=== PATIENT | female | born 1990 | race Native Hawaiian/Other Pacific Islander ===

== ENCOUNTER 2019-04-11 08:32 | Emergency (ER) | payer SELFPAY ==
[2019-04-11 08:45] VITALS: BP 122/80; PULSE 84; RESP 20; TEMP 36.4; O2SAT 100
--- NOTE | 2019-04-11 08:51 | ED.URI ---
HPI - URI/Sore Throat General Chief Complaint: Upper Respiratory Infection Stated Complaint: Body Aches/Diarrhea/Nausea/Congested Time Seen by Provider: 04/11/19 08:51 Source: patient and RN notes reviewed History of Present Illness HPI Narrative: Patient is a 28-year-old female presents the urgent care with complaints of nausea, body aches, loose stools, head congestion, chills, sweats. Patient states she has not taken her temperature but feels that she has been running a fever. States that she is not having constant diarrhea but is having loose stools twice a day. Denies of any vomiting or abdominal pain. States her symptoms started 3 days ago. Has been using TheraFlu without much improvement. No other acute complaints. No acute distress noted. Patient read the plan of care. Related Data Home Medications Medication Instructions Recorded Confirmed alprazolam 0.25 mg PO TID PRN 03/04/19 03/04/19 hydroxychloroquine 200 mg PO DAILY 03/04/19 03/04/19 omeprazole 20 mg PO DAILY 03/04/19 03/04/19 prednisone 10 mg PO DAILY 03/04/19 03/04/19 Allergies Allergy/AdvReac Type Severity Reaction Status Date / Time methylprednisolone Allergy Anaphylaxis Verified 04/11/19 08:56 [From [facility]] Review of Systems Review of Systems: Narrative: CONSTITUTIONAL: Reports of chills and sweats EYES: Denies visual changes, redness, or discharge. ENT: Reports of sinus congestion, rhinorrhea, postnasal drainage, bilateral otalgia. CARDIOVASCULAR: Denies chest pain, palpitations, or edema. RESPIRATORY: Denies cough or dyspnea. GASTROINTESTINAL: Reports of nausea and loose stools GENITOURINARY: Denies dysuria or hematuria. SKIN: Denies rash or itching. MUSCULOSKELETAL: Denies back pain, joint pain, or myalgia. NEUROLOGIC: Denies headache, numbness, or weakness. All other systems reviewed are negative, except as documented in HPI. [facility] Past Medical History Medical History (Updated 04/11/19 @ 09:09 by MELINDA Dunbar) Rheumatoid arthritis Comments At the time of my signature, I reviewed and agree with the nursing past medical, surgical, social, and family history. There is no relevant family history pertinent to the patient complaint. Exam Narrative: Exam Narrative: GENERAL: This is a well-nourished, well-developed patient, in no apparent distress. HEAD: normocephalic, atraumatic. Mild frontal sinus tenderness EYES: PERRL. Sclera clear/white. Vision is grossly intact. EARS: External ears normal, auditory canals clear and without drainage, fluid noted behind bilateral TMs. TMs normal without perforation. Hearing grossly intact. NOSE: External nose normal with no obvious nasal discharge, bilateral erythemic nares with clear rhinorrhea. THROAT: Mucous membranes moist, posterior pharynx clear. Mild postnasal drainage NECK: Neck supple, non-tender without lymphadenopathy, masses or thyromegaly. CARDIOVASCULAR: Regular rate and rhythm without murmurs, gallops, or rubs. RESPIRATORY: Clear to auscultation. Breath sounds equal bilaterally. No wheezes, rales, or rhonchi. SKIN: warm, intact with no suspicious lesions or rash, good texture and turgor. NEURO: awake, alert, and oriented to person, place and time. There were no obvious focal neurologic abnormalities. EXTREMITIES: No clubbing, cyanosis, or edema. Course Vital Signs Vital signs: Vital Signs Temperature 97.5 F L 04/11/19 08:45 Pulse Rate 84 04/11/19 08:45 Respiratory Rate 20 04/11/19 08:45 Blood Pressure 122/80 04/11/19 08:45 Pulse Oximetry 100 04/11/19 08:45 Temperature 97.5 F L 04/11/19 08:45 Pulse Rate 84 04/11/19 08:45 Respiratory Rate 20 04/11/19 08:45 Blood Pressure 122/80 04/11/19 08:45 Pulse Oximetry 100 04/11/19 08:45 Reviewed MDM - URI/Sore Throat MDM Narrative Medical decision making narrative: Reviewed lab results with the patient. She is aware that flu swab was negative. Advised the patient to increase fluids and
== END 2019-04-11 09:10 | disposition home or self-care (01) ==
PROVIDERS: Emergency Provider Nurse Practitioner Family
DX: B34.9 Viral infection, unspecified (principal); M32.9 Systemic lupus erythematosus, unspecified; F41.9 Anxiety disorder, unspecified
CPT/HCPCS: 87804; 99212; G0463

== ENCOUNTER 2019-08-01 08:39 | Emergency (ER) | payer SELFPAY ==
[2019-08-01 08:45] VITALS: BP 125/82; PULSE 73; RESP 16; TEMP 36.7; O2SAT 99
--- NOTE | 2019-08-01 08:54 | ED.GENADULT ---
HPI - General Adult General Stated complaint: Throat pain and sores mouth Time Seen by Provider: 08/01/19 08:54 Source: patient and RN notes reviewed Mode of arrival: ambulatory Limitations: no limitations History of Present Illness HPI narrative: This is a 29 years old female presents to the office for an evaluation of throat irritation. States, she had a little bit of soreness prior to EGD on Sunday. However her symptom is worse yesterday, described as swollen, painful, with sore noticed that she noticed inside her mouth. Denies fever, tarry stool, abdominal pain, or vomiting. Denies fever however states she reported generalized achiness feeling. She did not call the specialist office yet. She concern for strep that's why she is here. No treatment prior to arrival. Related Data Home Medications Medication Instructions Recorded Confirmed alprazolam 0.25 mg PO TID PRN 03/04/19 08/01/19 hydroxychloroquine 200 mg PO DAILY 03/04/19 08/01/19 omeprazole 20 mg PO DAILY 03/04/19 08/01/19 prednisone 10 mg PO DAILY 03/04/19 08/01/19 azathioprine 08/01/19 bupropion HCl mg PO 08/01/19 ergocalciferol (vitamin D2) 1,250 mcg PO WEEKLY 08/01/19 08/01/19 [Vitamin D2] escitalopram oxalate 10 mg PO DAILY 08/01/19 08/01/19 folic acid 08/01/19 ketorolac 10 mg PO QID PRN 08/01/19 08/01/19 meloxicam 08/01/19 trazodone 50 mg PO DAILY 08/01/19 08/01/19 valacyclovir 1,000 mg PO DAILY 08/01/19 08/01/19 Allergies Allergy/AdvReac Type Severity Reaction Status Date / Time methylprednisolone Allergy Anaphylaxis Verified 08/01/19 08:53 [From [facility]-Med[facility]] venlafaxine Allergy Rash Verified 08/01/19 08:53 Review of Systems Review of Systems: Narrative: CONSTITUTIONAL: Denies fever ENT: Denies congestion or otalgia. CARDIOVASCULAR: Denies chest pain RESPIRATORY: Denies dyspnea, cough GASTROINTESTINAL: Denies abdominal pain, nausea. Reports chronic diarrhea. GENITOURINARY: Denies urinary symptoms SKIN: Denies rash MUSCULOSKELETAL: Denies acute back pain NEUROLOGIC: Denies lightheaded PMFSH Past Medical History Medical History (Updated 08/01/19 @ 09:22 by MELINDA Lemus) Anxiety Chronic diarrhea Lupus (systemic lupus erythematosus) Rheumatoid arthritis Comments At time of signature, I agree with nursing past medical, surgical, social and family history. There is no relevant family history pertinent to the presenting complaint. Exam Narrative: Exam Narrative: GENERAL: This is a well-nourished, well-developed patient, in no apparent distress. EARS: External ears normal, auditory canals clear and without drainage, TMs normal without perforation. Hearing grossly intact. NOSE: External nose normal with no obvious nasal discharge, nares without redness, no rhinorrhea. THROAT: Mucous membranes moist without sore/lesions, posterior pharynx clear. NECK: Neck supple, non-tender without lymphadenopathy, masses or thyromegaly. CARDIOVASCULAR: Regular rate and rhythm without murmurs, gallops, or rubs. RESPIRATORY: Clear to auscultation. Breath sounds equal bilaterally. No wheezes, rales, or rhonchi. GASTROINTESTINAL: Abdomen soft, non-tender, nondistended. Bowel sounds are active. No hepato-splenomegaly, or palpable masses. No guarding. SKIN: warm, intact with no suspicious lesions or rash, good texture and turgor. NEURO: awake, alert, and oriented to person, place and time. There were no obvious focal neurologic abnormalities. Steady gait [place] Coma Scale Eye Opening: Spontaneous 4 [place] Coma Scale Motor: Obeys Commands 6 [place] Coma Scale Verbal: Oriented 5 Course Vital Signs Vital signs: Vital Signs Temperature 98.1 F 08/01/19 08:45 Pulse Rate 73 08/01/19 08:45 Respiratory Rate 16 08/01/19 08:45 Blood Pressure 125/82 08/01/19 08:45 Pulse Oximetry 99 08/01/19 08:45 Temperature 98.1 F 08/01/19 08:45 Pulse Rate 73 08/01/19 08:45 Respiratory Rate 16 08/01/19 08:45 Blood Pressure
== END 2019-08-01 09:30 | disposition home or self-care (01) ==
PROVIDERS: Emergency Provider Nurse Practitioner; PCP Internal Medicine
DX: J02.9 Acute pharyngitis, unspecified (principal)
CPT/HCPCS: 87081; 87880; 99213; G0463

== ENCOUNTER 2019-09-06 19:19 | Emergency (ER) | payer SELFPAY ==
--- NOTE | ~2019-09-06 | XR_ITS ---
XR ankle LT min 3V 09/06/2019 19:46 INDICATION: Left ankle pain PROCEDURE: 4 views left ankle COMPARISON: No prior studies FINDINGS: Fracture, dislocation or subluxation is not identified. The soft tissues appear within norm al limits. No foreign bodies are identified. IMPRESSION: 1: NO ACUTE BONE OR JOINT ABNORMALITY IDENTIFIED. Reviewed, dictated and finalized at location A.
[2019-09-06 19:28] VITALS: BP 129/59; PULSE 98; RESP 16; TEMP 36.8; O2SAT 100
--- NOTE | 2019-09-06 19:30 | ED.GENADULT ---
HPI - General Adult General Chief complaint: Extremity Injury, Lower Stated complaint: left ankle pain/rib pain Time Seen by Provider: 09/06/19 19:35 Source: patient Mode of arrival: ambulatory Limitations: no limitations History of Present Illness HPI narrative: 29-year-old female patient presents to the [facility] with complaints of left foot and ankle pain x1 week. Patient states that on 29 August she tried to do a front handsprings and came down landing on the left foot as well as the left side. Patient states she had a little bit of pain to her left rib area under the left breast but states that that pain is actually improving and feels much better. Patient states she continues to have pain to the left ankle area. Patient states she is tried ice, elevation and Tylenol and ibuprofen. 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 Denies wrapping the ankle at all. Related Data Home Medications Medication Instructions Recorded Confirmed alprazolam 0.25 mg PO TID PRN 03/04/19 08/01/19 hydroxychloroquine 200 mg PO DAILY 03/04/19 08/01/19 omeprazole 20 mg PO DAILY 03/04/19 08/01/19 prednisone 10 mg PO DAILY 03/04/19 08/01/19 ergocalciferol (vitamin D2) 1,250 mcg PO WEEKLY 08/01/19 08/01/19 [Vitamin D2] escitalopram oxalate 10 mg PO DAILY 08/01/19 08/01/19 ketorolac 10 mg PO QID PRN 08/01/19 08/01/19 trazodone 50 mg PO DAILY 08/01/19 08/01/19 albuterol sulfate INHALATION 09/06/19 amoxicillin 09/06/19 Allergies Allergy/AdvReac Type Severity Reaction Status Date / Time methylprednisolone Allergy Anaphylaxis Verified 09/06/19 19:29 [From [facility]-Medrol] venlafaxine Allergy Rash Verified 09/06/19 19:29 Review of Systems Review of Systems: Narrative: CONSTITUTIONAL: Denies fever, chills, or sweats. EYES: Denies visual changes, redness, or discharge. ENT: Denies rhinorrhea, congestion, sore throat, or otalgia. CARDIOVASCULAR: Denies chest pain, palpitations, or edema. RESPIRATORY: Denies cough or dyspnea. GASTROINTESTINAL: Denies abdominal pain, nausea, vomiting, or diarrhea. GENITOURINARY: Denies dysuria or hematuria. SKIN: Denies rash or itching. MUSCULOSKELETAL: Denies back pain, joint pain, or myalgia. Positive left ankle pain x1 week NEUROLOGIC: Denies headache, numbness, or weakness. PSYCHIATRIC: Denies anxiety or depression. [facility] Past Medical History Medical History Anxiety Chronic diarrhea Lupus (systemic lupus erythematosus) Rheumatoid arthritis Comments At the time of my signature I agree with nursing past medical history, surgical, social, and family history. There is no relevant family history pertinent to the presenting complaint. Exam Narrative: Exam Narrative: GENERAL: Well-appearing, well-nourished, and in no acute distress. HEAD: Normocephalic, atraumatic. EYES: PERRLA and EOMI. ENT: Nares clear, no rhinorrhea or epistaxis. Mucous membranes moist. NECK: Supple. No lymphadenopathy CHEST: Clear to auscultation. No respiratory distress. HEART: Regular rate and rhythm. No murmur heard. Normal peripheral pulses. ABDOMEN: Soft, nontender, nondistended, normal active bowel sounds. EXTREMITIES: Patient is able to bear weight and ambulate but has increased pain to left ankle with ambulation. The L ankle is without obvious asymmetry or deformity when compared to the R ankle. Patient can flex/extend, invert/kelly. No obvious surface trauma, ecchymosis, or soft tissue swelling. Bony tenderness to palpation over the medial malleolus. Anterior talofibular ligament, posterior talofibular ligament, calcaneofibular ligament nontender and without swelling. No tenderness or deformity of the midfoot or over the proximal fifth metatarsal. Good DP and posterior tibial pulses and sensation to light touch normal. Talar tilt test is negative for ligament laxity to valgus or vargus stress. Negative anterior draw. Peroneal nerve is int
== END 2019-09-06 19:56 | disposition home or self-care (01) ==
PROVIDERS: Emergency Provider Nurse Practitioner Family; PCP Internal Medicine
DX: S93.402A Sprain of unspecified ligament of left ankle, initial encounter (principal); W18.39XA Other fall on same level, initial encounter; F41.9 Anxiety disorder, unspecified; M32.9 Systemic lupus erythematosus, unspecified; M06.9 Rheumatoid arthritis, unspecified
CPT/HCPCS: 73610; 99213; G0463

== ENCOUNTER 2019-10-19 11:44 | Emergency (ER) | payer SELFPAY ==
--- NOTE | ~2019-10-19 | XR_ITS ---
EXAMINATION: XR chest 2V DATE: 10/19/2019 12:32 INDICATION: Bronchitis and asthma TECHNIQUE: PA and lateral views of the chest are obtained. COMPARISON: None available FINDINGS: The lungs are free of acute opacities. There is no pleural effusion or pneumothorax. The ca rdiomediastinal silhouette is normal. The visualized bones and soft tissues are unremarkable. IMPRESSION: 1. No acute cardiopulmonary abnormality. Reviewed, dictated and finalized at location A.
[2019-10-19 12:00] VITALS: BP 122/75; PULSE 92; RESP 18; TEMP 36.8; O2SAT 99
--- NOTE | 2019-10-19 12:31 | ED.GENADULT ---
HPI - General Adult General Chief complaint: Urogenital-Female Stated complaint: chest pain Time Seen by Provider: 10/19/19 12:36 Source: patient and RN notes reviewed Mode of arrival: ambulatory Limitations: no limitations History of Present Illness HPI narrative: 29-year-old female presents with urinary complaints with nausea, vomiting, and abdominal pain for the past 3 days. Dysuria consist of burning, frequency, and urgency.? Recently completed a course of Levaquin.? Denies fever or chills. No significant pelvic pain. No vaginal discharge.? No concerns for STDs. Exacerbating factors urinating.? Denies hematuria or vaginal bleeding. Denies being , LMP 1 week ago.? No flank pain. Vomit X3 without blood, last today at noon was placed on Zofran took last at 10:30 with little relief. Diarrhea water brown stool without blood, last prior to this visit. Tolerating liquids well.? Remains active. Complains of chest congestion and dry cough and body aches for the past 14 days. Carito says she was diagnosis with Bronchitis and started Levaquin and completed all. Negative COVID-19, last 3 weeks ago and currently awaiting result of one done 2 days ago to start treatment for Lupus. Constant dry cough. Rhinorrhea and nasal congestion. Denies sore throat. No high fevers, drooling, neck or throat swelling. No chest pain, wheezing, or shortness of breath. No exacerbation factors. The patient reports she have not been diagnosed with COVID-19. The patient reports she is waiting for the results of a COVID-19 lab test she had done on 10/17/19. The patient reports she do not have fever, chills, or weakness. The patient reports she do not have a new or worsening cough or shortness of breath. Denies chest pain. The patient reports she do not have any sore throat or loss of taste. Denies recent traveling. Denies concerns for COVID-19 or exposures been home with limited outdoor exposure except for essential household needs, work, and return home. At this time, patient is not suspected of having COVID-19. Some parts of this dictation were generated by voice recognition software and may contain typographical and/or grammatical inaccuracies. Related Data Home Medications Medication Instructions Recorded Confirmed alprazolam 0.25 mg PO TID PRN 03/04/19 08/01/19 hydroxychloroquine 200 mg PO DAILY 03/04/19 08/01/19 omeprazole 20 mg PO DAILY 03/04/19 08/01/19 prednisone 10 mg PO DAILY 03/04/19 08/01/19 trazodone 50 mg PO DAILY 08/01/19 08/01/19 albuterol sulfate INHALATION 09/06/19 Allergies Allergy/AdvReac Type Severity Reaction Status Date / Time methylprednisolone Allergy Anaphylaxis Verified 10/19/19 12:15 [From Solu-Medrol] venlafaxine Allergy Rash Verified 10/19/19 12:15 Review of Systems Review of Systems: Narrative: CONSTITUTIONAL: Denies fever, chills, sweats. EYES: Denies visual changes, redness, discharge. ENT: Denies sore throat, otalgia. Complains of rhinorrhea, congestion. CARDIOVASCULAR: Denies chest pain, palpitations, edema. RESPIRATORY: Denies dyspnea, wheezing. Complains of cough, chest congestion. GASTROINTESTINAL: Complains of abdominal pain, nausea, vomiting, diarrhea. GENITOURINARY: Complains of dysuria (burning, frequency, and urgency). Denies hematuria, abnormal discharge. SKIN: Denies rash or itching. MUSCULOSKELETAL: Denies acute back pain, joint pain, or myalgia. NEUROLOGIC: Denies numbness or focal weakness. PSYCHIATRIC: Denies anxiety or depression. All systems reviewed & are unremarkable except as noted in HPI and below. [facility] Past Medical History Medical History (Updated 10/20/19 @ 00:00 by Lincoln Vizcarra) Anxiety Appendicitis Asthma Bronchitis Chronic diarrhea Connective tissue disorder History of gastroesophageal reflux (GERD) Lupus (systemic lupus erythematosus) Rheumatoid arthritis Surgical History Surgical History (Updated 10/19/19 @ 13:13 by MELINDA Loza)
== END 2019-10-19 13:30 | disposition home or self-care (01) ==
PROVIDERS: Emergency Provider Nurse Practitioner Family
DX: K52.9 Noninfective gastroenteritis and colitis, unspecified (principal); R30.0 Dysuria; J06.9 Acute upper respiratory infection, unspecified; F17.210 Nicotine dependence, cigarettes, uncomplicated; J45.909 Unspecified asthma, uncomplicated; F41.9 Anxiety disorder, unspecified; M06.9 Rheumatoid arthritis, unspecified; M32.9 Systemic lupus erythematosus, unspecified; K21.9 Gastro-esophageal reflux disease without esophagitis
CPT/HCPCS: 71046; 81003; 87086; 99213; G0463

== ENCOUNTER 2020-01-12 17:08 | Emergency (ER) | payer OTHER, SELFPAY ==
--- NOTE | ~2020-01-12 | XR_ITS ---
EXAMINATION: XR chest 2V DATE: 01/12/2020 18:09 INDICATION: Lupus presenting with 2 months of bronchitis TECHNIQUE: frontal and lateral views of the chest were obtained. COMPARISON: Chest radiograph dated 10/19/2019 FINDINGS: The lungs remain clear with no focal airspace opacities, pulmonary edema, pleural effusion or pneumot horax. The cardiomediastinal silhouette is normal. Visualized bones and soft tissues are unremarkable . IMPRESSION: 1. No acute cardiopulmonary disease. Reviewed, dictated and finalized at location H. ERN STAMPER
[2020-01-12 17:22] VITALS: BP 121/81; PULSE 86; RESP 18; TEMP 36.6; O2SAT 99
--- NOTE | 2020-01-12 17:36 | ED.GENADULT ---
HPI - General Adult General Chief complaint: Upper Respiratory Infection Stated complaint: chest hurting from bronchitis Time Seen by Provider: 01/12/20 17:36 Source: patient Mode of arrival: ambulatory Limitations: no limitations History of Present Illness HPI narrative: 29-year-old female patient presents to the [facility] with complaints of cough, heartburn complaints. Patient states that in October she was diagnosed with pneumonia and was put on Levaquin at an ER. Patient states she has been tested for Covid several times and is always come up negative and her last Covid test was December 25. Patient states that she went to the ER at the end of November as well for continued symptoms of pneumonia and she was placed on an inhaler and azithromycin at that time. Patient was told that she most likely did have Covid or at least getting over most likely a Covid from a prior month. Patient states that today she is feeling much better and states that the body aches and chills are gone but continues to have a little bit of a lingering cough and states that for the past 2 days she has had what she feels like is the worst heartburn of her life to the mid chest. Patient denies any recent fevers. Patient states that she does have history of lupus and gets treated with chemo in which she is supposed to be getting her chemo infusion tomorrow and wanted to come in to make sure that she did not having any ongoing pneumonia or else she would not be able to get her chemo tomorrow. Related Data Home Medications Medication Instructions Recorded Confirmed alprazolam 0.25 mg PO TID PRN 03/04/19 08/01/19 hydroxychloroquine 200 mg PO DAILY 03/04/19 08/01/19 omeprazole 20 mg PO DAILY 03/04/19 08/01/19 prednisone 10 mg PO DAILY 03/04/19 08/01/19 trazodone 50 mg PO DAILY 08/01/19 08/01/19 albuterol sulfate INHALATION 09/06/19 Allergies Allergy/AdvReac Type Severity Reaction Status Date / Time methylprednisolone Allergy Anaphylaxis Verified 10/19/19 12:15 [From Solu-Medrol] venlafaxine Allergy Rash Verified 10/19/19 12:15 Review of Systems Review of Systems: Narrative: CONSTITUTIONAL: Denies fever, chills, or sweats. EYES: Denies visual changes, redness, or discharge. ENT: Denies rhinorrhea, congestion, sore throat, or otalgia. CARDIOVASCULAR: Positive midsternal chest pain, denies palpitations, or edema. RESPIRATORY: Positive cough, denies dyspnea. GASTROINTESTINAL: Denies abdominal pain, nausea, vomiting, or diarrhea. GENITOURINARY: Denies dysuria or hematuria. SKIN: Denies rash or itching. MUSCULOSKELETAL: Denies back pain, joint pain, or myalgia. NEUROLOGIC: Denies headache, numbness, or weakness. PSYCHIATRIC: Denies anxiety or depression. [facility] Past Medical History Medical History (Updated 01/12/20 @ 18:21 by MELINDA Strickland) Anxiety Appendicitis Asthma Bronchitis Chronic diarrhea Connective tissue disorder History of gastroesophageal reflux (GERD) Lupus (systemic lupus erythematosus) Rheumatoid arthritis Surgical History Surgical History (Updated 10/19/19 @ 13:13 by MELINDA Loza) H/O right wrist surgery Hx of appendectomy Family History Family History (Updated 10/19/19 @ 13:13 by MELINDA Loza) Father Acute myocardial infarction Mother , Mother by boyfriend No problems noted. Social History Social History (Updated 10/19/19 @ 13:14 by MELINDA Loza) Smoking packs per day: 0.25 Smoking cigarettes per day: 5.0 Years smoked: 4 Smoking pack-years: 1.00 Smoking status: Current every day smoker Tobacco type: cigarettes Alcohol intake: former Substance use: current Substance use type: marijuana Gender identity (if verbalized by the patient): Female Exam Narrative: Exam Narrative: GENERAL: Well-appearing, well-nourished, and in no acute distress. HEAD: Normocephalic, atraumatic. EYES: PERRLA and EOMI. ENT: Nares clear, no r
--- NOTE | 2020-01-12 17:40 | ECG_ITS ---
Measurements Intervals [place] Rate: 68 P: 33 [place]: 138 QRS: 24 QRSD: 83 T: 19 QT: 390 QTc: 415 Interpretive Statements SINUS RHYTHM BASELINE ARTIFACT- I, II, AVR NORMAL ECG Electronically Signed On 01-12-2020 20:27:51 [employer] by Sebastian Bocanegra D.O.
== END 2020-01-12 18:23 | disposition home or self-care (01) ==
PROVIDERS: Emergency Provider Nurse Practitioner Family; PCP Internal Medicine
DX: J06.9 Acute upper respiratory infection, unspecified (principal); J45.909 Unspecified asthma, uncomplicated; K21.9 Gastro-esophageal reflux disease without esophagitis; M32.9 Systemic lupus erythematosus, unspecified; F41.9 Anxiety disorder, unspecified; M06.9 Rheumatoid arthritis, unspecified; F17.210 Nicotine dependence, cigarettes, uncomplicated
CPT/HCPCS: 71046; 93005; 99213; G0463

== ENCOUNTER 2020-01-29 09:53 | Emergency (ER) | payer OTHER, SELFPAY ==
[2020-01-29 10:00] VITALS: BP 122/76; PULSE 89; RESP 14; TEMP 36.5; O2SAT 99
--- NOTE | 2020-01-29 10:07 | ED.GENADULT ---
HPI - General Adult General Chief complaint: Ear Stated complaint: Ear infection Time Seen by Provider: 01/29/20 10:09 Source: patient Mode of arrival: ambulatory Limitations: no limitations History of Present Illness HPI narrative: 29-year-old female patient presents to the [facility] with complaints of bilateral ear pain for the past week. Patient states she was diagnosed symptomatically with Covid couple of months ago and states that she is still crying and having some milder symptoms and is not been able to fully get over her symptoms as of yet. Patient states her oxygen saturation has been staying at 99 which she checks often and states she does have still a little bit of a mild cough that happens intermittently as well as some intermittent shortness of breath with activity. Patient states she is being followed by her primary doctor. Patient states she is currently in remission for lupus and chemo treatments. Patient states she has had decreased hearing to both ears. Patient states she did do a telehealth visit with her primary doctor yesterday and they prescribed her some steroid nasal spray but she states that that is not helping and wanted to come in to see if it was an infection. Denies any fevers, body aches or chills. Related Data Home Medications Medication Instructions Recorded Confirmed alprazolam 0.25 mg PO TID PRN 03/04/19 01/29/20 hydroxychloroquine 200 mg PO DAILY 03/04/19 01/29/20 omeprazole 20 mg PO DAILY 03/04/19 01/29/20 prednisone 10 mg PO DAILY 03/04/19 01/29/20 albuterol sulfate 90 mcg INHALATION Q6H PRN 09/06/19 01/29/20 belimumab [Benlysta] 200 mg SUBCUT WEEKLY 01/29/20 01/29/20 Allergies Allergy/AdvReac Type Severity Reaction Status Date / Time methylprednisolone Allergy Anaphylaxis Verified 01/29/20 10:09 [From Solu-Medrol] venlafaxine Allergy Rash Verified 01/29/20 10:09 Review of Systems Review of Systems: Narrative: CONSTITUTIONAL: Denies fever, chills, or sweats. EYES: Denies visual changes, redness, or discharge. ENT: Denies rhinorrhea, congestion, sore throat, positive bilateral otalgia. CARDIOVASCULAR: Denies chest pain, palpitations, or edema. RESPIRATORY: Denies cough or dyspnea. GASTROINTESTINAL: Denies abdominal pain, nausea, vomiting, or diarrhea. GENITOURINARY: Denies dysuria or hematuria. SKIN: Denies rash or itching. MUSCULOSKELETAL: Denies back pain, joint pain, or myalgia. NEUROLOGIC: Denies headache, numbness, or weakness. PSYCHIATRIC: Denies anxiety or depression. [facility] Past Medical History Medical History Anxiety Appendicitis Asthma Bronchitis Chronic diarrhea Connective tissue disorder History of gastroesophageal reflux (GERD) Lupus (systemic lupus erythematosus) Rheumatoid arthritis Surgical History Surgical History H/O right wrist surgery Hx of appendectomy Family History Family History Father Acute myocardial infarction Mother , Mother by boyfriend No problems noted. Social History Social History Smoking packs per day: 0.25 Smoking cigarettes per day: 5.0 Years smoked: 4 Smoking pack-years: 1.00 Smoking status: Current every day smoker Tobacco type: cigarettes Alcohol intake: former Substance use: current Substance use type: marijuana Gender identity (if verbalized by the patient): Female Comments At the time of my signature I agree with nursing past medical history, surgical, social, and family history. There is no relevant family history pertinent to the presenting complaint. Exam Narrative: Exam Narrative: GENERAL: Well-appearing, well-nourished, and in no acute distress. HEAD: Normocephalic, atraumatic. EYES: PERRLA and EOMI. ENT: Nares clear, no rhinorrhea or epistaxis.
== END 2020-01-29 10:20 | disposition home or self-care (01) ==
PROVIDERS: Emergency Provider Nurse Practitioner Family; PCP Internal Medicine
DX: H66.93 Otitis media, unspecified, bilateral (principal); F17.210 Nicotine dependence, cigarettes, uncomplicated; F41.9 Anxiety disorder, unspecified; J45.909 Unspecified asthma, uncomplicated; K21.9 Gastro-esophageal reflux disease without esophagitis; M32.9 Systemic lupus erythematosus, unspecified; M06.9 Rheumatoid arthritis, unspecified
CPT/HCPCS: 99213; G0463

== ENCOUNTER 2021-03-10 17:09 | Emergency (ER) | payer OTHER, SELFPAY ==
--- NOTE | ~2021-03-10 | XR_ITS ---
XR chest 2V DATE: 03/10/2021 18:10 INDICATION: Cough, shortness of breath, chest tightness. Covid-positive 6 days ago. TECHNIQUE: PA and lateral views COMPARISON: 01/11/2022 view chest FINDINGS: Normal heart size. No hilar or mediastinal enlargement. No pulmonary infiltrate or consolid ation, pleural effusion or pulmonary vascular congestion or pneumothorax. Included skeletal structure s are unremarkable. IMPRESSION: Negative Reviewed, dictated and finalized at location J. [facility]LOGIST IMPRESSION: Negative
[2021-03-10 17:15] VITALS: BP 122/82; PULSE 64; RESP 18; TEMP 36.7; O2SAT 99
--- NOTE | 2021-03-10 18:01 | ED.URI ---
HPI - URI/Sore Throat General Chief Complaint: Upper Respiratory Infection Stated Complaint: Chest discomfort Source: patient Mode of arrival: ambulatory Limitations: no limitations History of Present Illness HPI Narrative: 30-year-old female presents to [facility] with complaints of continued cough, chest congestion, chest tightness and shortness of breath for the last 6 days. Patient was diagnosed with COVID 6 days ago. Patient did have an antiviral infusion completed 3 days ago. Patient reports that she feels like her symptoms have worsened since then. Patient was evaluated [facility] emergency room yesterday had a normal chest x-ray completed and was given a shot of dexamethasone and was told to start Zithromax tomorrow. Patient reports that she does take prednisone daily due to history of lupus. Patient is COVID vaccinated. Patient denies fever, bodies, chills, nausea, vomiting or diarrhea. Patient reports that she has been monitoring her pulse ox levels at home and they have been running 98 to 99%. Patient is a non-smoker. Patient denies recent travel. Patient reports that she has been in contact with her campaign specialist and the facility that completed antiviral infusion. MD elicited complaint: cough and other (chest tightness) Onset (ago): day(s) (6) Able to tolerate fluids by mouth: Yes Related Data Home Medications Medication Instructions Recorded Confirmed hydroxychloroquine 200 mg PO DAILY 03/04/19 01/29/20 omeprazole 20 mg PO DAILY 03/04/19 01/29/20 belimumab [Benlysta] 200 mg SUBCUT WEEKLY 01/29/20 01/29/20 dexamethasone 03/10/21 ondansetron HCl 03/10/21 valacyclovir 03/10/21 Allergies Allergy/AdvReac Type Severity Reaction Status Date / Time methylprednisolone Allergy Anaphylaxis Verified 01/29/20 10:09 [From Solu-Medrol] Penicillins Allergy Rash Verified 03/10/21 17:39 venlafaxine Allergy Rash Verified 01/29/20 10:09 Review of Systems Constitutional: Constitutional: Denies chills, Reports fatigue, Denies fever(s) and Denies weakness ENT: Denies dysphagia, Denies dizziness, Denies epistaxis and Denies sore throat Cardiovascular: Cardiovascular: Denies chest pain Respiratory: Respiratory: Reports chest congestion and Reports cough Gastrointestinal: Gastrointestinal: Denies abdominal pain, Denies diarrhea, Denies nausea and Denies vomiting Integumentary/Breasts: Skin/Breast: Denies rash PMFSH Past Medical History Medical History Anxiety Appendicitis Asthma Bronchitis Chronic diarrhea Connective tissue disorder History of gastroesophageal reflux (GERD) Lupus (systemic lupus erythematosus) Rheumatoid arthritis Surgical History Surgical History H/O right wrist surgery Hx of appendectomy Family History Family History Father Acute myocardial infarction Mother , Mother by boyfriend No problems noted. Social History Social History Smoking packs per day: 0.25 Smoking cigarettes per day: 5.0 Years smoked: 4 Smoking pack-years: 1.00 Smoking status: Current every day smoker Tobacco type: cigarettes Alcohol intake: former Substance use: current Substance use type: marijuana Gender identity (if verbalized by the patient): Female Sexual Orientation (if Verbalized by the Patient): Straight or Heterosexual Comments At time of signature, I agree with nursing past medical, surgical, social and family history. There is no relevant family history pertinent to the presenting complaint. Exam Const: General: healthy appearing and no acute distress Orientation/consciousness: patient oriented x3 HENMT: Head: normal to inspection Mouth: Yes moist mucous membranes Teeth and gingiva: dentition normal Throat: uvula mi
== END 2021-03-10 18:45 | disposition home or self-care (01) ==
PROVIDERS: Emergency Provider Nurse Practitioner Family; PCP Internal Medicine
DX: U07.1 COVID-19 (principal); J45.909 Unspecified asthma, uncomplicated; K21.9 Gastro-esophageal reflux disease without esophagitis; M32.9 Systemic lupus erythematosus, unspecified; M06.9 Rheumatoid arthritis, unspecified; F17.210 Nicotine dependence, cigarettes, uncomplicated
CPT/HCPCS: 71046; 99213; G0463

== ENCOUNTER 2023-08-04 16:02 | Emergency (ER) | payer OTHER, SELFPAY ==
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
[2023-08-04 16:17] VITALS: BP 113/76; PULSE 72; RESP 16; TEMP 37; O2SAT 100
== END 2023-08-04 17:03 | disposition home or self-care (01) ==
PROVIDERS: Emergency Provider Nurse Practitioner Family; PCP Internal Medicine
DX: S13.4XXA Sprain of ligaments of cervical spine, initial encounter (principal); S16.1XXA Strain of muscle, fascia and tendon at neck level, initial encounter; V89.2XXA Person injured in unspecified motor-vehicle accident, traffic, initial encounter; M32.9 Systemic lupus erythematosus, unspecified; M06.9 Rheumatoid arthritis, unspecified; F17.210 Nicotine dependence, cigarettes, uncomplicated; J45.909 Unspecified asthma, uncomplicated; K21.9 Gastro-esophageal reflux disease without esophagitis
CPT/HCPCS: 99213; G0463

== ENCOUNTER 2023-11-04 08:57 | Emergency (ER) | payer SELFPAY ==
[2023-11-04 09:08] VITALS: BP 115/70; PULSE 71; RESP 16; TEMP 36.3; O2SAT 100
--- NOTE | 2023-11-04 09:15 | ED.URI ---
HPI - URI/Sore Throat General Chief Complaint: Upper Respiratory Infection Stated Complaint: poss sinus infection Time Seen by Provider: 11/04/23 09:15 Source: patient, RN notes reviewed and old records reviewed Mode of arrival: ambulatory Limitations: no limitations History of Present Illness HPI Narrative: 33-year-old female who presents to [facility] and 1 and 1/2 weeks duration of sinus congestion, facial pressure, sinus drainage, pressure to her ears. Patient reports she has done COVID testing at home which has been negative. Patient reports she has been taking Sudafed, DayQuil, NyQuil, ibuprofen, nasal saline and Flonase for her symptoms without resolution. Patient reports that she has had history of sinus problems since moving to [facility]. MD elicited complaint: rhinorrhea, nasal congestion, sinus pain and other (Ear pressure, facial pressure) Pertinent past history: pneumonia, asthma, seasonal allergies and other (Bronchitis) Onset (ago): week(s) (1.5) Consistency: constant Severity: moderate Pain scale (0-10): 4 Able to tolerate fluids by mouth: Yes Treatments prior to arrival: acetaminophen, ibuprofen and other (Nasal saline, Flonase and Sudafed) Related Data Home Medications Medication Instructions Recorded Confirmed hydroxychloroquine 200 mg tablet 200 mg PO DAILY 03/04/19 01/29/20 omeprazole 20 mg tablet,delayed 20 mg PO DAILY 03/04/19 01/29/20 release prednisone 5 mg tablet mg 08/04/23 sertraline 25 mg tablet mg 08/04/23 Allergies Allergy/AdvReac Type Severity Reaction Status Date / Time methylprednisolone Allergy Anaphylaxis Verified 08/04/23 16:05 [From Solu-Medrol] Penicillins Allergy Rash Verified 08/04/23 16:05 venlafaxine Allergy Rash Verified 08/04/23 16:05 Review of Systems Review of Systems: CONSTITUTIONAL: Reports malaise, chills, sweats, or fever. EYES: Denies visual changes, redness, or discharge. ENT: Reports rhinorrhea, congestion, sinus pain, otalgia and sore throat. CARDIOVASCULAR: Denies chest pain, palpitations, or edema. RESPIRATORY: Reports no cough.? Denies dyspnea. GASTROINTESTINAL: Denies abdominal pain, nausea, vomiting, diarrhea SKIN: Denies rash or itching. MUSCULOSKELETAL: Denies myalgia. NEUROLOGIC: Reports intermittent headache. All systems reviewed & are unremarkable except as noted in HPI and below PMFSH Past Medical History Medical History Anxiety Appendicitis Asthma Bronchitis Chronic diarrhea Connective tissue disorder History of gastroesophageal reflux (GERD) Lupus (systemic lupus erythematosus) Rheumatoid arthritis Surgical History Surgical History H/O right wrist surgery Hx of appendectomy Status post breast reduction Family History Family History Father Acute myocardial infarction Mother , Mother by boyfriend No problems noted. Social History Social History Smoking packs per day: 0.25 Smoking cigarettes per day: 5.0 Years smoked: 4 Smoking pack-years: 1.00 Smoking status: Current every day smoker Tobacco type: cigarettes Alcohol intake: former Substance use: current Substance use type: marijuana Living arrangements: with family Occupation/Education: occupation Gender identity (if verbalized by the patient): Female Sexual Orientation (if Verbalized by the Patient): Straight or Heterosexual Comments At time of signature, agree with nursing past medical, surgical, social and family history. There is no relevant family history pertinent to the presenting complaint Exam Narrative: GENERAL: Well-appearing, well-nourished, and in no acute distress. HEAD: Normocephalic EYES: PERRLA, conjunctivae clear ENT: Nares clear, turbinates edematous a
--- NOTE | 2023-11-09 19:12 | PC.NURSE ---
called and requested diflucan, said has developed vag. itch with white thick discharge, said forgot to request diflucan with azithromycin. said always gets yeast infection with azithromycin. 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
== END 2023-11-04 09:42 | disposition home or self-care (01) ==
PROVIDERS: Emergency Provider Registered Nurse; PCP Internal Medicine
DX: J01.40 Acute pansinusitis, unspecified (principal); F17.210 Nicotine dependence, cigarettes, uncomplicated; J45.909 Unspecified asthma, uncomplicated; M32.9 Systemic lupus erythematosus, unspecified; M06.9 Rheumatoid arthritis, unspecified; K21.9 Gastro-esophageal reflux disease without esophagitis
CPT/HCPCS: 99213; G0463

== ENCOUNTER 2024-01-04 17:46 | Emergency (ER) | payer SELFPAY ==
[2024-01-04 17:53] VITALS: BP 111/74; PULSE 79; RESP 18; TEMP 36.6; O2SAT 100
[2024-01-04 18:55] LABS: EDCOVIDSCREEN Negative (Negative); EDINFLUASCREEN Negative (Negative); EDINFLUBSCREEN Negative (Negative); EDSTREPNEGPOS1 Negative (Negative)
--- NOTE | 2024-01-04 20:44 | ED_ITS ---
HPI - URI/Sore Throat General Chief Complaint: Upper Respiratory Infection Stated Complaint: chest heaviness,weak,hard to get deep breath Time Seen by Provider: 01/04/24 17:55 Source: patient, RN notes reviewed and old records reviewed Mode of arrival: ambulatory Limitations: no limitations History of Present Illness HPI Narrative: 33-year-old female to [facility] for complaint of bilateral ear pain, fatigue, diarrhea, cough , chest heaviness for 4 days. 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 Patient states that her daughter has recently been treated for pneumonia. Patient able to tolerate fluids by mouth. Patient resting comfortably in exam room in no acute distress. Respirations even and nonlabored. Patient able to speak in complete sentences without difficulty. Related Data Home Medications Medication Instructions Recorded Confirmed hydroxychloroquine 200 mg tablet 200 mg PO DAILY 03/04/19 01/29/20 omeprazole 20 mg tablet,delayed 20 mg PO DAILY 03/04/19 01/29/20 release prednisone 5 mg tablet mg 08/04/23 sertraline 25 mg tablet mg 08/04/23 acyclovir 5 % topical ointment topical 01/04/24 Allergies Allergy/AdvReac Type Severity Reaction Status Date / Time methylprednisolone Allergy Anaphylaxis Verified 01/04/24 17:52 [From Solu-Medrol] Penicillins Allergy Rash Verified 01/04/24 17:52 venlafaxine Allergy Rash Verified 01/04/24 17:52 Review of Systems Review of Systems: All systems reviewed & are unremarkable except as noted in HPI and below Constitutional: Constitutional: Reports as per HPI and Reports fatigue Eyes: Eyes: Reports no additional eye complaints ENT: Reports as per HPI and Reports otalgia Cardiovascular: Cardiovascular: Reports no additional cardiovascular complaints, Denies chest pain and Denies dyspnea Respiratory: Respiratory: Reports no additional respiratory complaints, Reports cough and Denies dyspnea Comments: patient states feels difficult to take a deep breath Gastrointestinal: Gastrointestinal: Reports as per HPI and Reports diarrhea Musculoskeletal: Musculoskeletal: Reports no additional musculoskeletal complaints Neurologic: Reports system reviewed and no additional complaints, except as documented Psychiatric: Psychiatric: Reports no additional psychiatric complaints [facility] Past Medical History Medical History Anxiety Appendicitis Asthma Bronchitis Chronic diarrhea Connective tissue disorder History of gastroesophageal reflux (GERD) Lupus (systemic lupus erythematosus) Rheumatoid arthritis Surgical History Surgical History H/O right wrist surgery Hx of appendectomy Status post breast reduction Family History Family History Father Acute myocardial infarction Mother , Mother by boyfriend No problems noted. Social History Social History Smoking packs per day: 0.25 Smoking cigarettes per day: 5.0 Years smoked: 4 Smoking pack-years: 1.00 Smoking status: Current every day smoker Tobacco type: cigarettes Alcohol intake: former Substance use: current Substance use type: marijuana Living arrangements: with family Occupation/Education: occupation Gender identity (if verbalized by the patient): Female Sexual Orientation (if Verbalized by the Patient): Straight or Heterosexual Comments At the time of my signature, I reviewed and agree with the nursing past medical, surgical, social, and family history. There is no relevant family history pertinent to the patient complaint. Exam Const: General: cooperative, healthy appearing, comfortable, no acute distress, well developed, alert, well groomed and well nourished Nutritional Appearance: well nourished Orientation/consciousness: patient oriented x3 Limitations: no limitations HENMT: Head: normal to inspection Ears: external ears normal Face/Nose/Sinus: Normal external nose present, Normal nares present, normal facial exam, No erythema and No edema Face and sinus: normal facial exam, no erythema and no edema Mouth: Yes Normal oral and palatal mucosa present Eyes: General: appearance normal, both eyes and all related structures Neck: Neck: normal visual inspection, full ROM and no meningeal signs Lymphatic: no lymphadenopathy noted and no lymphedema noted Chest: Chest palpation & inspection: normal inspection of the chest Resp: Effort & Inspection: normal respiratory effort and able to speak in complete sentences Auscultation: crackles and diminished lung sounds bilateral Cardio: Jugular venous distension: no JVD Rate: regular rate Rhythm: regular rhythm Back/Spine/Pelvis: Cervical Spine: cervical ROM normal Skin: General skin exam: normal color, no rashes or lesions noted and turgor normal Neuro: General: patient oriented x3, gait normal, moves all extremities and no meningeal signs Speech: normal speech Gait exam (Neuro): Normal gait present Extrem: General: normal to inspection, full ROM and capillary refill normal Psych: Appearance: grossly normal and well kempt Course Course Emergency Course: Some parts of this dictation were generated by voice recognition software and may contain typographical and/or grammatical inaccuracies. Level of Care: Express [facility] Visit Vital Signs Vital signs: Vital Signs Temperature 36.6 C 01/04/24 17:53 Pulse Rate 79 01/04/24 17:53 Respiratory Rate 18 01/04/24 17:53 Blood Pressure 111/74 01/04/24 17:53 Pulse Oximetry 100 01/04/24 17:53 Oxygen Delivery Room Air 01/04/24 17:53 Temperature 36.6 C 01/04/24 17:53 Pulse Rate 79 01/04/24 17:53 Respiratory Rate 18 01/04/24 17:53 Blood Pressure 111/74 01/04/24 17:53 Pulse Oximetry 100 01/04/24 17:53 Oxygen Delivery Room Air 01/04/24 17:53 reviewed MDM - URI/Sore Throat MDM Narrative Medical decision making narrative: 33-year-old female to [facility] for complaint of bilateral ear pain, fatigue, diarrhea, cough for 4 days. 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 Patient states that her daughter has recently been treated for pneumonia. Patient able to tolerate fluids by mouth. Patient resting comfortably in exam room in no acute distress. Respirations even and nonlabored. Patient able to speak in complete sentences without difficulty. on exam, bilateral lung bases diminished with diffuse crackles. Exam otherwise unremarkable. Patient negative for COVID, influenza, strep in clinic. Strep culture sent. Patient is sitting comfortably in exam room nontoxic in appearance. Patient appropriate for outpatient treatment and follow-up. Discharge instructions reviewed with patient, as well as provided in writing per nursing staff. The instructions also include specific and strict return/GO TO THE ER as well as f/u information. All questions have been answered, and the patient deny any further questions with discharge and discharge plan. Some parts of this dictation were generated by voice recognition software and may contain typographical and/or grammatical inaccuracies. Differential Diagnosis Differential diagnosis: Likely upper respiratory infection, croup, otitis media, sinusitis, viral infection, bronchitis, influenza and pharyngitis Lab Data Labs: Lab Results 01/04/24 Range/Units 18:53 POC Influenza A Ag Negative (Negative) POC Influenza B Ag Negative (Negative) POC SARS CoV-2 Ag Negative (Negative) POC Grp A Strep Screen Negative (Negative) Discharge Plan Discharge Clinical Impression: Pneumonia exposure Patient Disposition: Home, Self-Care Condition: Stable Prescriptions: New fluconazole [Diflucan] 100 mg tablet 100 mg PO DAILY Qty: 1 0RF doxycycline monohydrate 100 mg tablet 100 mg PO BID 10 Days Qty: 20 0RF albuterol sulfate 90 mcg/actuation HFA aerosol inhaler 1 inh inhalation QID PRN (Reason: shortness of breath or wheezing) Qty: 8.5 0RF No Action acyclovir 5 % ointment TOPICAL omeprazole 20 mg Tablet,Delayed Release (Dr/Ec) 20 mg PO DAILY hydroxychloroquine 200 mg Tablet 200 mg PO DAILY prednisone 5 mg tablet sertraline 25 mg tablet Follow-up/Referrals: Yaa,Brian Tatum MD [Primary Care Provider] -
== END 2024-01-04 19:03 | disposition home or self-care (01) ==
PROVIDERS: Emergency Provider Nurse Practitioner Family; PCP Internal Medicine
DX: Z20.89 Contact with and (suspected) exposure to other communicable diseases (principal); Z20.822 Contact with and (suspected) exposure to COVID-19; F17.210 Nicotine dependence, cigarettes, uncomplicated; J45.909 Unspecified asthma, uncomplicated; M32.9 Systemic lupus erythematosus, unspecified; E27.1 Primary adrenocortical insufficiency; K21.9 Gastro-esophageal reflux disease without esophagitis; M06.9 Rheumatoid arthritis, unspecified
CPT/HCPCS: 87081; 87426; 87804; 87880; 99213; G0463

== ENCOUNTER 2024-02-17 13:38 | Emergency (ER) | payer SELFPAY ==
--- NOTE | 2024-02-17 13:55 | ED.URI ---
HPI - URI/Sore Throat General Chief Complaint: Upper Respiratory Infection Stated Complaint: Sinus Pressure/Body Aches/Runny Nose History of Present Illness HPI Narrative: Patient presents with a 5 day history of nasal congestion cough no fever no body aches. Patient states she was treated urgent care 6 days ago with negative swabs for influenza and COVID and given a Z-Maximilian. Patient presents with continued nasal congestion and cough. No shortness of breath no chest pain no fever no body aches. Related Data Home Medications ?Medication ?Instructions ?Recorded ?Confirmed ?Last Taken ?Type hydroxychloroquine 200 mg tablet 200 mg PO DAILY 03/04/19 02/17/24 Unknown History omeprazole 20 mg tablet,delayed 20 mg PO DAILY 03/04/19 02/17/24 Unknown History release prednisone 5 mg tablet mg 08/04/23 Unknown History sertraline 25 mg tablet mg 08/04/23 Unknown History acyclovir 5 % topical ointment topical 01/04/24 Unknown History Flonase 02/17/24 Unknown History azithromycin 250 mg tablet mg 02/17/24 Unknown History cetirizine .ROUTE 02/17/24 Unknown History Allergies Allergy/AdvReac Type Severity Reaction Status Date / Time methylprednisolone (From Allergy Anaphylaxis Verified 02/17/24 13:54 Solu-Medrol) Penicillins Allergy Rash Verified 02/17/24 13:54 venlafaxine Allergy Rash Verified 02/17/24 13:54 Review of Systems Review of Systems: CONSTITUTIONAL: Denies chills, or sweats. Reports fever and generalized body aches EYES: Denies visual changes, redness, or discharge. ENT: Denies otalgia. Reports nasal congestion runny nose and sore throat CARDIOVASCULAR: Denies chest pain, palpitations, or edema. RESPIRATORY: Denies dyspnea. Reports occasional cough GASTROINTESTINAL: Denies abdominal pain, nausea, vomiting, or diarrhea. GENITOURINARY: Denies dysuria or hematuria. SKIN: Denies rash or itching. MUSCULOSKELETAL: Denies back pain, joint pain, or myalgia. Reports generalized body aches NEUROLOGIC: Denies headache, numbness, or weakness. PSYCHIATRIC: Denies anxiety or depression. [facility] Past Medical History Medical History Anxiety Appendicitis Asthma Bronchitis Chronic diarrhea Connective tissue disorder History of gastroesophageal reflux (GERD) Lupus (systemic lupus erythematosus) Rheumatoid arthritis Surgical History Surgical History H/O right wrist surgery Hx of appendectomy Status post breast reduction Family History Family History Father Acute myocardial infarction Mother , Mother by boyfriend No problems noted. Social History Social History Smoking packs per day: 0.25 Smoking cigarettes per day: 5.0 Years smoked: 4 Smoking pack-years: 1.00 Smoking status: Current every day smoker Tobacco type: cigarettes Alcohol intake: former Substance use: current Substance use type: marijuana Living arrangements: with family Occupation/Education: occupation Gender identity (if verbalized by the patient): Female Sexual Orientation (if Verbalized by the Patient): Straight or Heterosexual Comments At time of signature, agree with nursing past medical, surgical, social and family history. There is no relevant family history pertinent to the presenting complaint Exam Narrative: The patient is a well-developed, well-nourished in no acute distress. SKIN: Skin is warm and dry without erythema, swelling or exudate. There is good turgor. No tenting. HEAD: Atraumatic. Normocephalic. No temporal or scalp tenderness. EYES: Moist and bright. Sclera and conjunctivae normal. No discharge. PERRLA. Extraocular motions intact. Gross visual acuity intact. EARS: Pinna is normal shape and contour. Clear external auditory canals. TM pearly ramirez with good cone of light, no erythema or suppuration. Bilateral cerumen noted no gross hearing deficit. NOSE: pink, moist mucosa with good air movement. Clear rhinorrhea without nasal flaring. Septum midline. Mouth: moist mucous membranes. THROAT; mild erythema noted to posterior oropharynx with moderate postnasal drainage. Without exudate or ulceration.. Uvula midline. Normal movement of soft palate. NECK: Supple and nontender with full range of motion without discomfort. No meningeal signs. LUNGS: Equal and bilateral breath sounds without wheezes, rales or rhonchi. CHEST: The chest wall is without retractions or use of accessory muscles. HEART: Has a regular rate and rhythm without murmur, gallops, click or rub. ABDOMEN: Soft, nontender with positive active bowel sounds. No rebound tenderness. EXTREMITIES: Without cyanosis, clubbing or edema. Equal 2+ distal pulses and 2 second capillary refill noted. NEUROLOGIC: alert, active, . The patient moves all extremities with normal muscle strength. Normal muscle tone is noted. Normal coordination is noted. NO focal neurological findings noted. Course Course Level of Care: Express Care Visit Discharge Plan Discharge Clinical Impression: Upper respiratory infection Patient Disposition: Home, Self-Care Condition: Stable Instructions: Antibiotic Form Additional Instructions: *Throw away your current toothbrush and begin using a new toothbrush in 48 hours in order to prevent re-infection. If anyone else's toothbrush is stored near yours, they should also throw away their current toothbrush and begin using a new one. *Sanitize all reusable water bottles. *Do not share items with others. *Wash your hands often. Supportive care/Soothing measures/Pain relief: *Avoid cigarette smoke (including secondhand smoke) *Avoid acidic foods and beverages *Eat a soft diet for the next 3-4 days *Salt water gargles may alleviate some of the throat discomfort. Most recipes call for ? to ? teaspoon of salt per 8 ounces (approximately 240 mL) of warm water. *You can take tylenol or ibuprofen per the package instructions for pain/fever. *Sipping cold or warm beverages (eg, tea with honey or lemon) *Eat cold or frozen desserts (eg, ice cream, popsicles) *Sucking on ice *Sucking on hard candy Viruses are everywhere and can spread like wildfire. Sx can last up to 3-4 weeks. Treatment is aimed toward your specific symptoms. You must treat your symptoms in order to feel better while the virus runs it's course. Increase fluids especially water. Do not share items with others. You can take Tylenol or ibuprofen per the package instructions for pain/fever. Wash your hands as often as possible. Purchase and begin using an over the counter antihistamine/decongestant combo such as Zyrtec D, Chica D, Claritin D as well as Flonase nasal spray per the package instructions. Salt water gargles may alleviate some of your throat discomfort. Go to the ER if your symptoms become worse of if ANY new symptoms develop Patient Language: Belarusian Prescriptions: New dexamethasone 4 mg tablet 10 mg PO ONCE Qty: 2 0RF No Action acyclovir 5 % ointment TOPICAL fluconazole [Diflucan] 100 mg tablet 100 mg PO DAILY Qty: 1 0RF doxycycline monohydrate 100 mg tablet 100 mg PO BID 10 Days Qty: 20 0RF albuterol sulfate 90 mcg/actuation HFA aerosol inhaler 1 inh inhalation QID PRN (Reason: shortness of breath or wheezing) Qty: 8.5 0RF azithromycin 250 mg tablet cetirizine [Zyrtec] .ROUTE Flonase omeprazole 20 mg Tablet,Delayed Release (Dr/Ec) 20 mg PO DAILY hydroxychloroquine 200 mg Tablet 200 mg PO DAILY prednisone 5 mg tablet sertraline 25 mg tablet Follow-up/Referrals: Yaa,Brian Tatum MD [Primary Care Provider] -
[2024-02-17 13:57] VITALS: BP 123/69; PULSE 81; RESP 16; TEMP 36.5; O2SAT 100
--- NOTE | 2024-02-17 14:29 | PC.NURSE ---
1414 upon dc stated wants tested for flu and covid. aware of additional cost. said wants documentation if + or -. said was told to have test redone today by provider from previous urgent care visit 3 days ago.
[2024-02-17 14:53] LABS: EDCOVIDSCREEN Negative (Negative); EDINFLUASCREEN Negative (Negative); EDINFLUBSCREEN Negative (Negative)
--- OUTSIDE RECORDS SUMMARY | 2024-02-24 19:38 | XMS_ITS | Encounter Summary ---
Author Organization [facility] Address [address] [place] [address] Care Team Providers Care Slp Name Role Phone Sheldon Delgado MD Unavailable [phone] Huseyin Dangelo MD Primary Care Provider [phone] Encounter Details Date Type Department Care Team (Latest Contact Info) Description 05/31/2020 Travel Social History Tobacco Use Types Packs/Day Years Used Date Smoking Tobacco: Former Cigarettes Smokeless Tobacco: Never Alcohol Use Standard Drinks/Week Comments No 0 (1 standard drink = 0.6 oz pur e alcohol) Overall Financial Resource Strain (CARDIA) Answe r Date Recorded Difficulty of Paying Living Expenses Not hard at all 01/29/2019 Hunger Vital Sign Answer Date Recorded Worried About Running Out of Food in the Last Ye ar Never true 01/29/2019 Ran Out of Food in the Last Year Not on file 01/29/2019 PRAPARE - Transportation Answer Date Re corded Lack of Transportation (Medical) No 01/29/2019 Lack of Transportation (Non-Medical) No 01/29/2019 Sex and Gender Information Value Date Recorded Sex Assigned at Not on file Gender Identity Not on file Sexual Orientation Not on file COVID-19 Exposure Response Date Recorded In the last month, have you been in contact with someone who was confirmed or suspected to have Coronavirus / COVID-19? No / Unsure 05/31/2020 8:19 AM CDT documented as of this encounter Plan of Treatment Not on file documented as of this encounter Visit Diagnoses Not on filedocumented in this encounter Care Teams Slp Relationship Specialty Start Date End Date Huseyin Dangelo MD PCP - General 07/29/19 06/15/20 Sheldon Delgado MD Obstetrics and Gynecology 05/23/19 documented as of this encounter
--- OUTSIDE RECORDS SUMMARY | 2024-02-24 19:38 | XMS_ITS | Encounter Summary ---
Author Organization [facility] Address [address] [place] [address] Care Team Providers Care Wire Wrapping Machine Operator Name Role Phone Sheldon Delgado MD Unavailable [phone] Huseyin Dangelo MD Primary Care Provider [phone] Brian Mon MD Primary Care Provider [phone] Huseyin Dangelo MD Primary Care Provider [phone] Encounter Details Date Type Department Care Team (Late st Contact Info) Description 09/05/2019 Lab Requisition [facility] [address] [place] [address] Alton Valerio MD Social History Tobacco Use Types Packs/Day Years [...] on file Sexual Orientation Not on file documented as of this encounter Plan of Treatment Not on file documented as of this encounter Procedures Procedure Name Priority Date/Time Associated Diagnosis Comments SARS-COV-2 (COVID-19) IN HOUSE Routine 09/04/2019 1:00 PM CDT documented in this encounter Results * SARS-COV-2 (COVID-19) IN HOUSE (09/04/2019 1:00 PM CDT) COVID-19 PCR Not detected Not detected, Invalid 09/05/2019 7:50 PM CDT [facility] Microbiology SPECIMEN FROM NASOPHARYNGEAL STRUCTURE / Unknown Collection / Unknown 09/04/2019 1:00 PM CDT 09/05/2019 1:17 PM CDT Narrative [facility] - 09/05/2019 7:50 PM CDT This nucleic acid amplification assay performance was validated by [facility]. This test has been authorized by the Food and Drug administration (FDA)under an Emergency??Use Authorization (EUA). This test has been validated in accordance with the FDA's guidance document Policy for Diagnostic Testing in Laboratories Certified to perform High Complexity Testing under CLIA prior to Emergency Use Authorization for Coronavirus Disease-2019 during the Public Health Emergency issued on April 26, 2019. FDA independent review of this validation is pending. This test is only authorized for the duration of time the declaration that circumstances exist justifying the authorization of emergency use of in vitro diagnostic tests for detection of SARS-CoV-2 virus and/or diagnosis of COVID-19 infection under section 564(b)(1) of the Act, 21 U.S.C 360bbb-3 (b)(1), unless the authorization is terminated or revoked sooner. Alton Valerio MD LAB - MICROBIOLOGY ORDERABLES [facility] [address] [place] [address], [facility] [phone] documented in this encounter Visit Diagnoses Not on filedocumented in this encounter Additional Health Concerns Infection Onset Date Last Indicated Resolved Time COVID-19 Under Investigation 09/05/2019 09/04/2019 09/05/2019 7:50 PM CDT documented as of this encounter Care Teams Wire Wrapping Machine Operator Relationship Specialty Start Date End Date Huseyin Dangelo MD PCP - General 07/29/19 06/15/20 Brian Mon MD PCP - General Internal Medicine 06/16/20 12/19/20 [place] [id number] [id number] PCP - General 12/20/20 05/03/23 Sheldon Delgado MD Obstetrics and Gynecology 05/23/19 documented as of this encounter
--- OUTSIDE RECORDS SUMMARY | 2024-02-24 19:38 | XMS_ITS | Encounter Summary ---
Author Organization [facility] Address [address] [place] [address] Care Team Providers Care Cable Tv Installer Name Role Phone Sheldon Delgado MD Unavailable [phone] Huseyin Dangelo MD Primary Care Provider [phone] Brian Mon MD Primary Care Provider [phone] Huseyin Dangelo MD Primary Care Provider [phone] Encounter Details Date Type Department Care Team (Late st Contact Info) Description 09/03/2019 Lab Requisition [facility] [address] [place] [address] Quiqeu Cotton MD [address] [facility] [address] [place] [id number] Social History Tobacco Use Types Packs/Day Years Used Date Smoking Tobacco: Never Assessed Overall Financial Resource Strain (CARDIA) Answe r [...] Diagnosis Comments SARS-COV-2 (COVID-19) IN HOUSE Routine 09/03/2019 3:20 PM CDT documented in this encounter Results * SARS-COV-2 (COVID-19) IN HOUSE (09/03/2019 3:20 PM CDT) COVID-19 PCR Not detected Not detected, Invalid 09/04/2019 9:16 PM CDT [facility] Microbiology SPECIMEN FROM NASOPHARYNGEAL STRUCTURE / Unknown Collection / Unknown 09/03/2019 3:20 PM CDT 09/03/2019 7:22 PM CDT Narrative [facility] - 09/04/2019 9:16 PM CDT This Real Time RT-PCR assay was developed and its performance characteristics determined by [facility]. This test has been authorized by the Food and Drug administration (FDA)under an Emergency Use Authorization (EUA). This test has been validated [...] the authorization is terminated or revoked sooner. Quique Cotton MD LAB - MICROBIOLOGY O RDERABLES [facility] [address] [place] [address], [facility] [phone] documented in this encounter Visit Diagnoses Not on filedocumented in this encounter Additional Health Concerns Infection Onset Date Last Indicated Resolved Time COVID-19 Under Investigation 09/03/2019 09/03/2019 09/04/2019 9:16 PM CDT COVID-19 Under Investigation 09/05/2019 09/04/2019 09/05/2019 7:50 PM CDT documented as of this encounter Care Teams Cable Tv Installer Relationship Specialty Start Date End Date Huseyin Dangelo MD PCP - General 07/29/19 06/15/20 Brian Mon MD PCP - General Internal Medicine 06/16/20 12/19/20 [place] [id number] [facility] [address], [place] [id number] PCP - General 12/20/20 05/03/23 Sheldon Delgado MD Obstetrics and Gynecology 05/23/19 documented as of this encounter
--- OUTSIDE RECORDS SUMMARY | 2024-02-24 19:38 | XMS_ITS | Encounter Summary ---
Author Organization [facility] Address [address] [facility] [address] [facility] [place] [address] Care Team Providers Care Substitute Crossing Guard Name Role Phone Sheldon Delgado MD Unavailable [phone] Huseyin Dangelo MD Primary Care Provider [phone] Reason for Visit * Reason Onset Date Comments Appointment 09/21/2022 Encounter Details Date Type Department Care Team (Late st Contact Info) Description 09/21/2022 Telephone [facility] - Hematology/Oncology [address] [place] [address] Rita Dkue, RN Appointment Social History Tobacco Use Types Packs/Day Years [...] 01/29/2019 Lack of Transportation (Non-Medical) No 01/29/2019 Comments Yes Sex and Gender Information Value Date Recorded Sex Assigned at Not on file Gender Identity Not on file Sexual Orientation Not on file documented as of this encounter Miscellaneous Notes * Telephone Encounter - Rita Duke, PRO - 09/21/2022 1:25 PM CDT Attempted to call patient to finalize if she has decided to proceed with the anemia referral given insurance coverage issues. . Left voicemail requesting she call our office if she would like to proceed with scheduling. Will close referral for now as this RN has been in contact with this patient multiple time attempting to schedule. Will let referring provider know. Rita Duke, RN documented in this encounter Plan of Treatment Not on file documented as of this encounter Visit Diagnoses Not on filedocumented in this encounter Care Teams Substitute Crossing Guard Relationship Specialty Start [place] [address] [id number] PCP - General 12/20/20 05/03/23 Sheldon Delgado MD Obstetrics and Gynecology 05/23/19 documented as of this encounter
--- OUTSIDE RECORDS SUMMARY | 2024-02-24 19:38 | XMS_ITS | Continuity of Care Document ---
Author Organization [facility] Address [address] [place] [phone] Care Team Providers Care Receiving Barn Custodian Name Role Phone Mj Gayla Ivory Primary Care Physician [phone] Encounter [facility] Financial Number [id number] Date(s): 04/18/22 - 04/18/[address] [id number] Encounter Diagnosis Upper respiratory virus(Discharge Diagnosis) - 04/18/22 Discharge Disposition: Home or Self Care Attending Physician: Cirilo Mckeon D.O. Allergies, Adverse Reactions, Alerts Substance Reaction Severity Status penicillin Hives Active Medications albuterol 90 mcg/inh inhaler 2 puff(s), Inhalation, qid, 1 each, Inhaler, 0, 0, Route to Pharmacy Electronically, [facility], [id number], 157, cm, 04/18/2022 1337, Height, 79.5, kg, 04/18/2022 1337, Weight, stated Start Date: 04/18/22 Stop Date: 05/02/22 Status: Ordered hydroxychloroquine 0 Start Date: 11/16/21 Status: Ordered predniSONE 0 Start Date: 11/16/21 Status: Ordered predniSONE 10 mg oral tablet 10 mg, 1 tablet(s), Oral, daily, 10 tablet(s), Tablet(s), 0, 0, Route to Pharmacy Electronically, [facility], [id number], 157, cm, 04/18/2022 1337, Height, 79.5, kg, 04/18/2022 1337, Weight, stated Start Date: 04/18/22 Stop Date: 04/28/22 Status: Ordered Rhinocort Aqua 32 mcg/inh nasal spray 2 spray(s), Nasal, daily, 27 mL, [place], 0, 0, Route to Pharmacy Electronically, [facility], [id number], 157, cm, 02/08/2022 1349, Height, 81, kg, 02/08/2022 1349,Weight, stated Start Date: 02/08/22 Status: Ordered sertraline 25 mg oral tablet 0 Start Date: 11/16/21 Status: Ordered Problem List Condition Confirmation Course Effective Dates Status Health St atus Informant Genital herpes Confirmed Active Procedures Procedure Date Related Diagnosis Body Site Status Appendectomy Completed Results Radiology Reports * Exam Date Time Procedure Performing Provider Status 04/18/22 2:10 PM CHEST 2 VIEWS Gabriele Weinstein Intervent ional Dental Ceramist Helper; Auth (Verified) Notes: (CHEST 2 VIEWS) Reason For Exam: cough, dyspnea CHEST 2 VIEWS EXAM: CHEST X-RAY - PA AND LATERAL HISTORY: Cough and dyspnea COMPARISON: None FINDINGS: The heart size and pulmonary vasculature are normal. There is no consolidating infiltrate, effusion or pneumothorax. IMPRESSION: Normal two-view chest x-ray. . Dictating Physician: Micheal Courtney MD Releasing Physician: Micheal Courtney MD Signature Electronically Authorized Authorized Date/Time: 18-APR-2022 02:17 pm Vital Signs Most recent to oldest [Reference Range]: 1 Temperature Temporal Artery [35.8-38 Deg C] 36.5 DegC (04/18/22 1:37 PM) Peripheral Pulse Rate [60-100 bpm] 79 bp m (04/18/22 1:37 PM) Respiratory Rate [14-22 br/min] 18 br/mi n (04/18/22 1:37 PM) Blood Pressure [89-139/60-90 mm Hg] 122/ 72mm Hg (04/18/22 1:37 PM) Height 157 cm (04/18/22 1:37 PM) Social History Social History Type Response Alcohol Former alcohol user Substance Abuse Never drug user Smoking Status Former smoker;Never; Tobacco Cessation Counseling Requested N/A; Type: Cigarettes entered on: 11/16/21 Sex Hospital Discharge Instructions Patient Education 04/18/2022 14:30:30 URI, Viral, No Abx (Adult) Viral Upper Respiratory Illness (Adult) You have a viral upper respiratory illness (URI), which is another term for the common cold. This illness is contagious during the first few days. It is spread through the air by coughing and sneezing. It may also be spread by direct contact (touching the sick person and then touching your own eyes, nose, or mouth). Frequent handwashing will decrease risk of spread. Most viral illnesses go away within 7 to 10 days with rest and simple home remedies. Sometimes the illness may last for several weeks. Antibiotics will not kill a virus, and they are generally not prescribed for this condition. Home care ???If symptoms are severe, rest at home for the first 2 to 3 days. When you resume activity, don't let yourself get too tired. ???Don't smoke. If you need help stopping, talk with your healthcare provider. ???Avoid being exposed to cigarette smoke (yours or others???). ???You may use acetaminophen or ibuprofen to control pain and fever, unless another medicine was prescribed.??If you have chronic liver or kidney disease, have ever had a stomach ulcer or gastrointestinal bleeding, or are taking blood- thinning medicines, talk with your healthcare provider before using these medicines. Aspirin should never be given to anyone under 18 years of age who is ill with aviral infection or fever. It may cause severe liver or brain damage. ???Your appetite may be poor, so a light diet is fine. Stay well hydrated by drinking 6 to 8 glasses of fluids per day (water, soft drinks, juices, tea, or soup). Extra fluids will help loosen secretions in the nose and lungs. ???Omkn-soc-hzdnjpp cold medicines will not shorten the length of time you???re sick, but they may be helpful for the following symptoms: cough, sore throat, and nasal and sinus congestion. If you take prescription medicines, ask your healthcare provider or pharmacist which sgla-suc-keyjsta medicines are safe to use. (Note: Don't use decongestants if you have high blood pressure.) Follow-up care Follow up with your healthcare provider, or as advised. When to seek medical advice Call your healthcare provider right away if any of these occur: ???Cough with lots of colored sputum (mucus) ???Severe headache; face, neck, or ear pain ???Difficulty??swallowing??due to throat pain ???Fever of 100.4??F (38??C) or higher, or as directed by your healthcare provider Call 911 Call 911 if any of these occur: ???Chest pain, shortness of breath, wheezing, or difficulty breathing ???Coughing up blood ???Very severe pain with swallowing, especially if it goes along with a muffled voice ?? [id number] [employer]. All rights reserved. This information is not intended as a substitute for professional medical care. Always follow your healthcare professional's instructions. 04/18/2022 14:25:16 URI, Viral, No Abx (Adult) Viral Upper Respiratory Illness (Adult) You have a viral upper respiratory illness (URI), which is another term for the common cold. This illness is contagious during the first few days. It is spread through the air by coughing and sneezing. It may also be spread by direct contact (touching the sick person and then touching your own eyes, nose, or mouth). Frequent handwashing will decrease risk of spread. Most viral illnesses go away within 7 to 10 days with rest and simple home remedies. Sometimes the illness may last for several weeks. Antibiotics will not kill a virus, and they are generally not prescribed for this condition. Home care ???If symptoms are severe, rest at home for the first 2 to 3 days. When you resume activity, don't let yourself get too tired. ???Don't smoke. If you need help stopping, talk with your healthcare provider. ???Avoid being exposed to cigarette smoke (yours or others???). ???You may use acetaminophen or ibuprofen to control pain and fever, unless another medicine was prescribed.??If you have chronic liver or kidney disease, have ever had a stomach ulcer or gastrointestinal bleeding, or are taking blood- thinning medicines, talk with your healthcare provider before using these medicines. Aspirin should never be given to anyone under 18 years of age who is ill with aviral infection or fever. It may cause severe liver or brain damage. ???Your appetite may be poor, so a light diet is fine. Stay well hydrated by drinking 6 to 8 glasses of fluids per day (water, soft drinks, juices, tea, or soup). Extra fluids will help loosen secretions in the nose and lungs. ???Mush-xpi-ozurzee cold medicines will not shorten the length of time you???re sick, but they may be helpful for the following symptoms: cough, sore throat, and nasal and sinus congestion. If you take prescription medicines, ask your healthcare provider or pharmacist which svgi-qrx-ehbjbde medicines are safe to use. (Note: Don't use decongestants if you have high blood pressure.) Follow-up care Follow up with your healthcare provider, or as advised. When to seek medical advice Call your healthcare provider right away if any of these occur: ???Cough with lots of colored sputum (mucus) ???Severe headache; face, neck, or ear pain ???Difficulty??swallowing??due to throat pain ???Fever of 100.4??F (38??C) or higher, or as directed by your healthcare provider Call 911 Call 911 if any of these occur: ???Chest pain, shortness of breath, wheezing, or difficulty breathing ???Coughing up blood ???Very severe pain with swallowing, especially if it goes along with a muffled voice ?? [id number] [employer]. All rights reserved. This information is not intended as a substitute for professional medical care. Always follow your healthcare professional's instructions. Note * Cirilo Mckeon D.O.: PERFORM Event Display: [facility] [place] Patient Summary Authored Date: [id number] UMER BOWEN :1990 Visit Date:04/18/2022 [facility] Discharge Instructions Patient Information Name:UMER BOWEN Address: [address] [place] [id number] Sex:Female Date of :1990 Location:[facility] Registration Date and Time:04/18/2022 13:20 LEAD ANDROID DEVELOPER Primary Care Physician: Gayla Barker SNACK FOODS MIXER OPERATOR, Attending Physician: Cirilo Mckeon D.O., Location Information ?[facility] [place]?[address]? Your Diagnosis Diagnosis ?Cough?Reason For Visit ?Upper respiratory virus?Discharge ?? Your Care Team Attending Physician - Cirilo Mckeon D.O. Primary Care Physician - Gayla Barker SNACK FOODS MIXER OPERATOR Discharge Vitals Vital Signs Height: 157 cm Weight, stated: 79.5 kg Temperature Temporal Artery: 36.5 DegC Systolic Blood Pressure: 122 mm Hg Diastolic Blood Pressure: 72 mm Hg Peripheral Pulse Rate: 79 bpm Respiratory Rate: 18 br/min Oxygen Saturation: 98 % What's Next? You Need to Schedule the Following Appointments Follow Up with??Gayla Barker NP, Family Medicine When?? Where: [address] , [place] [address]- Medications . [facility] has provided you with a complete list of medications post discharge. If you have been instructed to stop taking a medication, please ensure you follow up with your Primary Care Physician. Unless otherwise noted, you will continue to take medications as prescribed prior to your Urgent Care visit. Any specific questions regarding your chronic medications and dosages should be discussed with your physician(s) and pharmacist. What How Much When Instructions New albuterol (albuterol 90 mcg/ inh inhaler) 2 puff(s) Inhalation 4 times a day Duration: 14 day(s) Pickup at [facility] Changed predniSONE Changed predniSONE (predniSONE 10 mg oral tablet) 1 tablet(s) By mouth Daily Duration: 10 day(s) Pickup at [facility] 107 Unchanged budesonide nasal (Rhinocort Aqua 32 mcg/ inh nasal spray) 2 spray(s) Nasal Daily Unchanged hydroxychloroquine Unchanged sertraline (sertraline 25 mg oral tablet) Pharmacy Information [place] [id number]: [address] [place], [place] [id number] [phone] Medications and Immunizations Administered Medication Administrations ? No Results Found ? Allergies penicillin??(Hives) Labs Test Name Test Result Date/TimeInfluenza A RNA Negative 04/18/2022 13:36 LEAD [employer]RO[employer] DEVEL[employer] Influenza B RNA Negative 04/18/2022 13:36 LEAD ANDROID DEVELOPER SARS-CoV-2 (COVID-19) RNA Negative 04/18/2022 13:36 LEAD ANDROID DEVELOPER Strep A DNA Negative 04/18/2022 13:36 LEAD ANDROID DEVELOPER Performed at. [facility] 04/18/2022 13:36 LEAD ANDROID DEVELOPER Radiology CHEST 2 VIEWS 04/18/2022 14:18 LEAD ANDROID DEVELOPER ? COMPLETED RADIOLOGY IMAGING STUDIES: ? CHEST 2 VIEWS [Auth (Verified)] (04/18 141): FINAL IMPRESSION: Normal two-view chest x-ray.. Education Materials Viral Upper Respiratory Illness (Adult) You have a viral upper respiratory illness (URI), which is another term for the common cold. This illness is contagious during the first few days. It is spread through the air by coughing and sneezing. It may also be spread by direct contact (touching the sick person and then touching your own eyes, nose, or mouth). Frequent handwashing will decrease risk of spread. Most viral illnesses go away within 7 to 10 days with rest and simple home remedies. Sometimes the illness may last for several weeks. Antibiotics will not kill a virus, and they are generally not prescribed for this condition. Home care ???If symptoms are severe, rest at home for the first 2 to 3 days. When you resume activity, don't let yourself get too tired. ???Don't smoke. If you need help stopping, talk with your healthcare provider. ???Avoid being exposed to cigarette smoke (yours or others???). ???You may use acetaminophen or ibuprofen to control pain and fever, unless another medicine was prescribed.??If you have chronic liver or kidney disease, have ever had a stomach ulcer or gastrointestinal bleeding, or are taking blood- thinning medicines, talk with your healthcare provider before using these medicines. Aspirin should never be given to anyone under 18 years of age who is ill with aviral infection or fever. It may cause severe liver or brain damage. ???Your appetite may be poor, so a light diet is fine. Stay well hydrated by drinking 6 to 8 glasses of fluids per day (water, soft drinks, juices, tea, or soup). Extra fluids will help loosen secretions in the nose and lungs. ???Grbp-ohg-dvlqvxr cold medicines will not shorten the length of time you???re sick, but they may be helpful for the following symptoms: cough, sore throat, and nasal and sinus congestion. If you take prescription medicines, ask your healthcare provider or pharmacist which hnmv-mic-agvyaqx medicines are safe to use. (Note: Don't use decongestants if you have high blood pressure.) Follow-up care Follow up with your healthcare provider, or as advised. When to seek medical advice Call your healthcare provider right away if any of these occur: ???Cough with lots of colored sputum (mucus) ???Severe headache; face, neck, or ear pain ???Difficulty??swallowing??due to throat pain ???Fever of 100.4??F (38??C) or higher, or as directed by your healthcare provider Call 911 Call 911 if any of these occur: ???Chest pain, shortness of breath, wheezing, or difficulty breathing ???Coughing up blood ???Very severe pain with swallowing, especially if it goes along with a muffled voice ?? [phone] The [employer]. All rights reserved. This information is not intended as a substitute for professional medical care. Always follow your healthcare professional's instructions. Viral Upper Respiratory Illness (Adult) You have a viral upper respiratory illness (URI), which is another term for the common cold. This illness is contagious during the first few days. It is spread through the air by coughing and sneezing. It may also be spread by direct contact (touching the sick person and then touching your own eyes, nose, or mouth). Frequent handwashing will decrease risk of spread. Most viral illnesses go away within 7 to 10 days with rest and simple home remedies. Sometimes the illness may last for several weeks. Antibiotics will not kill a virus, and they are generally not prescribed for this condition. Home care ???If symptoms are severe, rest at home for the first 2 to 3 days. When you resume activity, don't let yourself get too tired. ???Don't smoke. If you need help stopping, talk with your healthcare provider. ???Avoid being exposed to cigarette smoke (yours or others???). ???You may use acetaminophen or ibuprofen to control pain and fever, unless another medicine was prescribed.??If you have chronic liver or kidney disease, have ever had a stomach ulcer or gastrointestinal bleeding, or are taking blood- thinning medicines, talk with your healthcare provider before using these medicines. Aspirin should never be given to anyone under 18 years of age who is ill with aviral infection or fever. It may cause severe liver or brain damage. ???Your appetite may be poor, so a light diet is fine. Stay well hydrated by drinking 6 to 8 glasses of fluids per day (water, soft drinks, juices, tea, or soup). Extra fluids will help loosen secretions in the nose and lungs. ???Krnv-hjx-akuzvei cold medicines will not shorten the length of time you???re sick, but they may be helpful for the following symptoms: cough, sore throat, and nasal and sinus congestion. If you take prescription medicines, ask your healthcare provider or pharmacist which uydf-ibr-usfloqe medicines are safe to use. (Note: Don't use decongestants if you have high blood pressure.) Follow-up care Follow up with your healthcare provider, or as advised. When to seek medical advice Call your healthcare provider right away if any of these occur: ???Cough with lots of colored sputum (mucus) ???Severe headache; face, neck, or ear pain ???Difficulty??swallowing??due to throat pain ???Fever of 100.4??F (38??C) or higher, or as directed by your healthcare provider Call 911 Call 911 if any of these occur: ???Chest pain, shortness of breath, wheezing, or difficulty breathing ???Coughing up blood ???Very severe pain with swallowing, especially if it goes along with a muffled voice ?? [id number] [employer]. All rights reserved. This information is not intended as a substitute for professional medical care. Always follow your healthcare professional's instructions. In need of a Physician? Call [facility] Physician Referral Service [phone]. Thank you for choosing [facility] for your care. The examination and treatment you have received in the Urgent Care today have been rendered on an emergency basis only and is not intended to be a substitute for complete medical care. You should contact your follow-up physician as it is important that he or she exam you for any new or remaining problems. If your problem worsens or new symptoms appear and you are unable to arrange prompt follow-up care, call or return to this urgentcare. I have been given the following list of patient education materials, prescriptions, and follow up instructions and have verbalized understanding. Patient/Cook'S Assistant Signature: Provider Signature: Date/Time:04/18/2022 14:30:34 * Cirilo Mckeon D.O.: PERFORM, SIGN, VERIFY Event Display: [facility] [place] Patient Education Authored Date: [id number] Viral Upper Respiratory Illness (Adult) You have a viral upper respiratory illness (URI), which is another term for the common cold. This illness is contagious during the first few days. It is spread through the air by coughing and sneezing. It may also be spread by direct contact (touching the sick person and then touching your own eyes, nose, or mouth). Frequent handwashing will decrease risk of spread. Most viral illnesses go away within 7 to 10 days with rest and simple home remedies. Sometimes the illness may last for several weeks. Antibiotics will not kill a virus, and they are generally not prescribed for this condition. Home care ???If symptoms are severe, rest at home for the first 2 to 3 days. When you resume activity, don't let yourself get too tired. ???Don't smoke. If you need help stopping, talk with your healthcare provider. ???Avoid being exposed to cigarette smoke (yours or others???). ???You may use acetaminophen or ibuprofen to control pain and fever, unless another medicine was prescribed.??If you have chronic liver or kidney disease, have ever had a stomach ulcer or gastrointestinal bleeding, or are taking blood- thinning medicines, talk with your healthcare provider before using these medicines. Aspirin should never be given to anyone under 18 years of age who is ill with aviral infection or fever. It may cause severe liver or brain damage. ???Your appetite may be poor, so a light diet is fine. Stay well hydrated by drinking 6 to 8 glasses of fluids per day (water, soft drinks, juices, tea, or soup). Extra fluids will help loosen secretions in the nose and lungs. ???Ggyc-dcw-iqsjoms cold medicines will not shorten the length of time you???re sick, but they may be helpful for the following symptoms: cough, sore throat, and nasal and sinus congestion. If you take prescription medicines, ask your healthcare provider or pharmacist which rfjw-vph-qdhmhzg medicines are safe to use. (Note: Don't use decongestants if you have high blood pressure.) Follow-up care Follow up with your healthcare provider, or as advised. When to seek medical advice Call your healthcare provider right away if any of these occur: ???Cough with lots of colored sputum (mucus) ???Severe headache; face, neck, or ear pain ???Difficulty??swallowing??due to throat pain ???Fever of 100.4??F (38??C) or higher, or as directed by your healthcare provider Call 911 Call 911 if any of these occur: ???Chest pain, shortness of breath, wheezing, or difficulty breathing ???Coughing up blood ???Very severe pain with swallowing, especially if it goes along with a muffled voice ?? [phone] The [employer]. All rights reserved. This information is not intended as a substitute for professional medical care. Always follow your healthcare professional's instructions. Pulmonary Viral Upper Respiratory Illness (Adult) You have a viral upper respiratory illness (URI), which is another term for the common cold. This illness is contagious during the first few days. It is spread through the air by coughing and sneezing. It may also be spread by direct contact (touching the sick person and then touching your own eyes, nose, or mouth). Frequent handwashing will decrease risk of spread. Most viral illnesses go away within 7 to 10 days with rest and simple home remedies. Sometimes the illness may last for several weeks. Antibiotics will not kill a virus, and they are generally not prescribed for this condition. Home care ???If symptoms are severe, rest at home for the first 2 to 3 days. When you resume activity, don't let yourself get too tired. ???Don't smoke. If you need help stopping, talk with your healthcare provider. ???Avoid being exposed to cigarette smoke (yours or others???). ???You may use acetaminophen or ibuprofen to control pain and fever, unless another medicine was prescribed.??If you have chronic liver or kidney disease, have ever had a stomach ulcer or gastrointestinal bleeding, or are taking blood- thinning medicines, talk with your healthcare provider before using these medicines. Aspirin should never be given to anyone under 18 years of age who is ill with aviral infection or fever. It may cause severe liver or brain damage. ???Your appetite may be poor, so a light diet is fine. Stay well hydrated by drinking 6 to 8 glasses of fluids per day (water, soft drinks, juices, tea, or soup). Extra fluids will help loosen secretions in the nose and lungs. ???Qkzj-sxl-ttvvouf cold medicines will not shorten the length of time you???re sick, but they may be helpful for the following symptoms: cough, sore throat, and nasal and sinus congestion. If you take prescription medicines, ask your healthcare provider or pharmacist which wgsd-xpp-zqcigux medicines are safe to use. (Note: Don't use decongestants if you have high blood pressure.) Follow-up care Follow up with your healthcare provider, or as advised. When to seek medical advice Call your healthcare provider right away if any of these occur: ???Cough with lots of colored sputum (mucus) ???Severe headache; face, neck, or ear pain ???Difficulty??swallowing??due to throat pain ???Fever of 100.4??F (38??C) or higher, or as directed by your healthcare provider Call 911 Call 911 if any of these occur: ???Chest pain, shortness of breath, wheezing, or difficulty breathing ???Coughing up blood ???Very severe pain with swallowing, especially if it goes along with a muffled voice ?? [id number] The [employer]. All rights reserved. This information is not intended as a substitute for professional medical care. Always follow your healthcare professional's instructions. * Cirilo Mckeon D.O.: PERFORM Event Display: [facility] Note-Physician Authored Date: [id number] [facility] Pain Reassessment Entered On: 04/18/2022 14:30 LEAD ANDROID DEVELOPER Performed On: 04/18/2022 14:29 LEAD ANDROID DEVELOPER by Cirilo Mckeon D.O. Pain Reassessment Pain Reassessment : No change Cirilo Mckeon D.O. - 04/18/2022 14:29 LEAD ANDROID DEVELOPER [Electronically Signed on 04/18/2022 02:29 PM LEAD ANDROID DEVELOPER] Cirilo Mckeon D.O. * Cirilo Mckeon D.O.: PERFORM, SIGN, VERIFY Event Display: [facility] Patient Education Authored Date: [id number] Pulmonary Viral Upper Respiratory Illness (Adult) You have a viral upper respiratory illness (URI), which is another term for the common cold. This illness is contagious during the first few days. It is spread through the air by coughing and sneezing. It may also be spread by direct contact (touching the sick person and then touching your own eyes, nose, or mouth). Frequent handwashing will decrease risk of spread. Most viral illnesses go away within 7 to 10 days with rest and simple home remedies. Sometimes the illness may last for several weeks. Antibiotics will not kill a virus, and they are generally not prescribed for this condition. Home care ???If symptoms are severe, rest at home for the first 2 to 3 days. When you resume activity, don't let yourself get too tired. ???Don't smoke. If you need help stopping, talk with your healthcare provider. ???Avoid being exposed to cigarette smoke (yours or others???). ???You may use acetaminophen or ibuprofen to control pain and fever, unless another medicine was prescribed.??If you have chronic liver or kidney disease, have ever had a stomach ulcer or gastrointestinal bleeding, or are taking blood- thinning medicines, talk with your healthcare provider before using these medicines. Aspirin should never be given to anyone under 18 years of age who is ill with aviral infection or fever. It may cause severe liver or brain damage. ???Your appetite may be poor, so a light diet is fine. Stay well hydrated by drinking 6 to 8 glasses of fluids per day (water, soft drinks, juices, tea, or soup). Extra fluids will help loosen secretions in the nose and lungs. ???Ihnd-vvo-acouwgz cold medicines will not shorten the length of time you???re sick, but they may be helpful for the following symptoms: cough, sore throat, and nasal and sinus congestion. If you take prescription medicines, ask your healthcare provider or pharmacist which rmin-eql-ttwyfuh medicines are safe to use. (Note: Don't use decongestants if you have high blood pressure.) Follow-up care Follow up with your healthcare provider, or as advised. When to seek medical advice Call your healthcare provider right away if any of these occur: ???Cough with lots of colored sputum (mucus) ???Severe headache; face, neck, or ear pain ???Difficulty??swallowing??due to throat pain ???Fever of 100.4??F (38??C) or higher, or as directed by your healthcare provider Call 911 Call 911 if any of these occur: ???Chest pain, shortness of breath, wheezing, or difficulty breathing ???Coughing up blood ???Very severe pain with swallowing, especially if it goes along with a muffled voice ?? [id number] The [employer]. All rights reserved. This information is not intended as a substitute for professional medical care. Always follow your healthcare professional's instructions. * Cirilo Mckeon D.O.: PERFORM, MODIFY, VERIFY, SIGN Event Display: [facility] Note-Physician Authored Date: [id number] Patient: UMER BOWEN Age: 31 years Sex: Female : 1990 Associated Diagnoses: None Author: Cirilo Mckeon D.O. Basic Information Vital signs: Vital Signs 04/18/2022 13:37 LEAD ANDROID DEVELOPER Temperature Temporal Artery 36.5 DegC Peripheral Pulse Rate 79 bpm Respiratory Rate 18 br/min Systolic Blood Pressure 122 mm Hg Diastolic Blood Pressure 72 mm Hg , Measurements 04/18/2022 13:37 LEAD ANDROID DEVELOPER Height 157 cm Weight, stated 79.5 kg , Oxygen saturation: Basic Oxygen Information 04/18/2022 13:37 LEAD ANDROID DEVELOPER Oxygen Saturation 98 % . Time seen: Date & time 04/18/2022 13:49:00. History source: Patient. Arrival mode: Private vehicle. History limitation: None. Additional information:: Chief Complaint from Nursing Triage Note : Chief Complaint Description 04/18/2022 13:37 LEAD ANDROID DEVELOPER Chief Complaint Description Pt arrives to w/ c/o productive cough, sore throat, chills, SOB, bilat ear pain x 2-3 days; hx lupus, on steroids; denies fevers; daughter has double ear infection . History of Present Illness The patient presents with an upper respiratory infection. The course/duration of symptoms is worsening. The degree at present is moderate. Exacerbating factors consist of none. The relieving factor is rest. Risk factors consist of none. Prior episodes: occasional. Therapy today: over the counter medications. Associated symptoms: none. Review of Systems Constitutional symptoms: no fever no chills. Skin symptoms: no rash Eye symptoms: no pain no discharge. ENMT symptoms: Sore throat, nasal congestion, sinus pain, no ear pain. Respiratory symptoms: Cough, no wheezing. Gastrointestinal symptoms: no vomiting no diarrhea. Allergy/immunologic symptoms: no recurrent infections no impaired immunity. Health Status Allergies: Allergic Reactions (Selected) Severity Not Documented Penicillin- Hives.. Past Medical/ Family/ Social History Medical history Problem List from Nurse's Notes All Problems Addisons disease / SNOMED CT 343399161 / Confirmed Depression / SNOMED CT 59026822 / Confirmed Genital herpes / SNOMED CT 77750068 / Confirmed Lupus / SNOMED CT 334023728 / Confirmed. Surgical history: Procedure History from Nurses Notes Appendectomy ([id number]).. Family history: Family History from Nurse's Notes No family history items have been selected or recorded.. Social history: Social History from Nurses Notes Alcohol Details: Former alcohol user Substance Abuse Details: Never drug user Tobacco Details: Former smoker, Smokeless Tobacco use: Never. N/A Cessation Counseling. Cigarettes . Physical Examination General: Alert. appropriate for age. no acute distress. Skin: Warm. dry. pink. Head: Normocephalic. atraumatic. Neck: Supple. trachea midline. Eye: Pupils are equal, round and reactive to light. normal conjunctiva. Ears, nose, mouth and throat: Tympanic membrane: bilateral:, mild and dullness. Nose/nares: bilateral nares:, mild and congestion. Throat: bilateral:, mild, pharynx and drainage. Cardiovascular: Regular rate and rhythm. No murmur. Normal peripheral perfusion. Respiratory: Lungs are clear to auscultation. respirations are non-labored. breath sounds are equal. Symmetrical chest wall expansion. Chest wall: No tenderness. No deformity. Musculoskeletal: Normal ROM Gastrointestinal: Soft. Nontender. Non distended. Normal bowel sounds. No organomegaly. Lymphatics: No lymphadenopathy Psychiatric: Cooperative. appropriate mood & affect. Medical Decision Making Orders Launch Orders Radiology: CHEST 2 VIEWS (Order): cough, dyspnea, 04/18/2022 14:02 LEAD ANDROID DEVELOPER, STAT, [facility] [place], Electronic, RADIOLOGY. Rationale History, radiographic studies (if performed), lab testing (if performed), and exam were considered with concern for the possible conditions listed above. . Results review: Lab results : Lab View 04/18/2022 13:36 LEAD ANDROID DEVELOPER Influenza A RNA Negative Influenza B RNA Negative SARS-CoV-2 (COVID-19) RNA Negative Strep A DNA Negative Performed at. [facility] Performed at. [facility] Performed at. [facility] . Procedure Critical care services delivered? No Impression and Plan Diagnosis Upper respiratory virus : [id number] J06.9, Discharge, Emergency medicine, Medical Discharge plan Condition: Unchanged. Prescriptions: Discharge Medications Pharmacy: albuterol 90 mcg/inh inhaler (Prescribe): 2 puff(s), Inhalation, qid, for 14 day(s), 1 each, 0 Refill(s) predniSONE 10 mg oral tablet (Prescribe): 10 mg, 1 tablet(s), Oral, daily, for 10 day(s), 10 tablet(s), 0 Refill(s). Patient was given the following educational materials: URI, Viral, No Abx (Adult). Follow up with: Primary Care Physician. Counseled: Patient, Regarding diagnosis, Regarding diagnostic results, Regarding treatment plan, Regarding prescription, Patient indicated understanding of instructions. [Electronically Signed on 04/18/2022 02:30 PM LEAD ANDROID DEVELOPER] Cirilo Mckeon D.O. * Maryam Alegre Wood Miller: PERFORM Event Display: [employer] consent - Text Authored Date: [id number] [employer] Consent Entered On: 04/18/2022 13:22 LEAD ANDROID DEVELOPER Performed On: 04/18/2022 13:22 LEAD ANDROID DEVELOPER by Maryam Alegre Savoy [employer] Consent Consent for Surescripts Granted : Yes Maryam Alegre Savoy - 04/18/2022 13:22 LEAD ANDROID DEVELOPER Nurse Urgent care center Note * Cirilo Mckeon D.O.: PERFORM Event Display: [facility] Note-Nursing Authored Date: [id number] [facility] Pending Results Entered On: 04/18/2022 14:30 LEAD ANDROID DEVELOPER Performed On: 04/18/2022 14:30 LEAD ANDROID DEVELOPER by Cirilo Mckeon D.O. [facility] Pending Results [facility] Pending Order Completion : No Cirilo Mckeon D.O. - 04/18/2022 14:30 LEAD ANDROID DEVELOPER * Beth Vallejo RN: PERFORM Event Display: [facility] Note-Nursing Authored Date: [id number] Urgent Care Triage Entered On: 04/18/2022 13:39 LEAD ANDROID DEVELOPER Performed On: 04/18/2022 13:37 LEAD ANDROID DEVELOPER by Beth Vallejo RN [facility] Triage Chief Complaint Description : Pt arrives to w/ c/o productive cough, sore throat, chills, SOB, bilat ear pain x 2-3 days; hx lupus, on steroids; denies fevers; daughter has double ear infection Beth Vallejo RN - 04/18/2022 13:37 LEAD ANDROID DEVELOPER DCP GENERIC CODE Tracking Acuity : 4 - Less Urgent Tracking Group : [facility] Beth Vallejo RN - 04/18/2022 13:37 LEAD ANDROID DEVELOPER Temperature Temporal Artery : 36.5 DegC(Converted to: 97.7 DegF) Peripheral Pulse Rate : 79 bpm Respiratory Rate : 18 br/min Height : 157 cm(Converted to: 5 ft 2 inch(es)) Systolic/Diastolic BP : 122 mm Hg Systolic/Diastolic BP : 72 mm Hg Weight, Stated : 79.5 kg(Converted to: 175.268 pound(s)) Oxygen Saturation : 98 % Pain Symptoms : No Beth Valljeo RN - 04/18/2022 13:37 LEAD ANDROID DEVELOPER (As Of: 04/18/2022 13:39 LEAD ANDROID DEVELOPER) Problems(Active) Addisons disease (SNOMED CT :470713290 ) Name of Problem: Addisons disease ; Recorder: Nishant Arguello RN; Confirmation: Confirmed ; Classification: Patient Stated ; Code: [id number] ; Contributor System: PowerChart ; Last Updated: 11/16/2021 10:27 CDT ; Life Cycle Date: 11/16/2021 ; Life Cycle Status: Active ; Vocabulary: SNOMED CT Depression (SNOMED CT :31844629 ) Name of Problem: Depression ; Recorder: Nishant Arguello RN; Confirmation: Confirmed ; Classification: Patient Stated ; Code: 78611401 ; Contributor System: PowerChart ; Last Updated: 11/16/2021 10:27 CDT ; Life Cycle Date: 11/16/2021 ; Life Cycle Status: Active ; Vocabulary: SNOMED CT Genital herpes (SNOMED CT :10655820 ) Name of Problem: Genital herpes ; Recorder: Minal Arreguin NP; Confirmation: Confirmed ; Classification: Medical ; Code: 19073953 ; Contributor System: PowerChart ; Last Updated: 08/08/2017 16:00CDT ; Life Cycle Date: 08/08/2017 ; Life Cycle Status: Active ; Vocabulary: SNOMED CT Lupus (SNOMED CT :022205954 ) Name of Problem: Lupus ; Recorder: Nishant Arguello RN; Confirmation: Confirmed ; Classification: Patient Stated ; Code: 851791193 ; Contributor System: PowerChart ; Last Updated: 11/16/2021 10:27 CDT ; Life Cycle Date: 11/16/2021 ; Life Cycle Status: Active ; Vocabulary: SNOMED CT Diagnoses(Active) Cough Date: 04/18/2022 ; Diagnosis Type: Reason For Visit ; Confirmation: Complaint of ; Clinical Dx: Cough ; Classification: Medical ; Clinical Service: Emergency medicine ; Code: PNED ; Probability: 0 ; Diagnosis Code: [id number] - Procedure History (As Of: 04/18/2022 13:39 LEAD ANDROID DEVELOPER) Anesthesia Minutes: 0 ; Procedure Name: Appendectomy ; Procedure Minutes: 0 Document Allergies/Home Meds Anticoagulant Therapy in Last 7 Days : Beth Alvarado RN - 04/18/2022 13:37 LEAD ANDROID DEVELOPER (As Of: 04/18/2022 13:39 LEAD ANDROID DEVELOPER) Allergies (Active) penicillin Estimated Onset Date: Unspecified ; Reactions: Hives ; Created By: Marlene Cardoza [facility]; Reaction Status: Active ; Category: Drug ; Substance: penicillin ; Type: Allergy ; Updated By: Marlene Cardoza [facility] Director; Reviewed Date: 04/18/2022 13:38 LEAD ANDROID DEVELOPER Medication List (As Of: 04/18/2022 13:39 LEAD ANDROID DEVELOPER) Prescription/Discharge Order budesonide nasal : budesonide nasal ; Status: Prescribed ; Ordered As Mnemonic: Rhinocort Aqua 32 mcg/inh nasal spray ; Simple Display Line: 2 spray(s), Nasal, daily, 27 mL, 0 Refill(s) ; Ordering Provider: Ernie Payne DO; Catalog Code: budesonide nasal ; Order Dt/Tm: 02/08/2022 14:01 LEAD ANDROID DEVELOPER Home Meds hydroxychloroquine : hydroxychloroquine ; Status: Documented ; Ordered As Mnemonic: hydroxychloroquine ; Simple Display Line: 0 Refill(s) ; Catalog Code: hydroxychloroquine ; Order Dt/Tm: 11/16/2021 10:26 CDT predniSONE : predniSONE ; Status: Documented ; Ordered As Mnemonic: predniSONE ; Simple Display Line: 0 Refill(s) ; Catalog Code: predniSONE ; Order Dt/Tm: 11/16/2021 10:26 CDT sertraline : sertraline ; Status: Documented ; Ordered As Mnemonic: sertraline 25 mg oral tablet ; Simple Display Line: 0 Refill(s) ; Catalog Code: sertraline ; Order Dt/Tm: 11/16/2021 10:26 CDT Screening Infectious Disease Novel Coronavirus Received Vaccine : Yes Novel Coronavirus Vaccine Type : Pfizer Novel Coronavirus Completed Vac Series : Yes Novel Coronavirus Booster Vaccine Received : No Beth Vallejo PRO - 04/18/2022 13:37 LEAD ANDROID DEVELOPER [facility] General Assessment/Social Hx Child/Parent Domestic Concerns : None [facility] Plan of Care Discussed : Yes Beth Vallejo PRO - 04/18/2022 13:37 LEAD ANDROID DEVELOPER Social History (As Of: 04/18/2022 13:39 LEAD ANDROID DEVELOPER) Tobacco: Former smoker, Smokeless Tobacco use: Never. N/A Cessation Counseling. Cigarettes (Last Updated: 11/16/2021 10:28 CDT by Nishant Arguello RN) Alcohol: Former alcohol user (Last Updated: 11/16/2021 10:28 CDT by Nishant Arguello RN) Substance Abuse: Never drug user (Last Updated: 11/16/2021 10:28 CDT by Nishant Arguello RN) Fall Risk Assessment Peds with adult : No History of Fall in Last 3 Months [place] : No Genevieve Beth Garcia RN - 04/18/2022 13:37 LEAD ANDROID DEVELOPER Novel Coronavirus Assessment Novel Coronavirus Current Fever : Yes Novel Coronavirus Exposed COVID 14 days : No Beth Vallejo Jose MAST - 04/18/2022 13:37 LEAD ANDROID DEVELOPER XR Chest 2 Views * Micheal Courtney MD: VERIFY, VERIFY, PERFORM Event Display: Interpretation: Authored Date: EXAM: CHEST X-RAY - PA AND LATERAL HISTORY: Cough and dyspnea COMPARISON: None FINDINGS: The heart size and pulmonary vasculature are normal. There is no consolidating infiltrate, effusion or pneumothorax. IMPRESSION: Normal two-view chest x-ray. . Dictating Physician: Micheal Courtney MD Releasing Physician: Micheal Courtney MD Signature Electronically Authorized Authorized Date/Time: 18-APR-2022 02:17 pm Patient Care team information Care Team Personnel Name: Gayla Barker NP Position: [facility] FAX ONLY - MD NOT ON STAFF Member Role: Primary Care Physician Address: Address: [address] [place] [address] , [place] [address] [place] Name: Beth Vallejo RN Position: [facility] Nurse Member Role: ED Nurse Name: Cirilo Mckeon D.O. Position: [facility] Physician Member Role: [facility] Provider Address: Address: [address] [place] [id number]
--- OUTSIDE RECORDS SUMMARY | 2024-02-24 19:38 | XMS_ITS | Encounter Summary ---
Author Organization [facility] Address [address] [place] [place] [address] Care Team Providers Care Building Rigger Name Role Phone Sheldon Delgado MD Unavailable [phone] Brian Mon MD Primary Care Provider [phone] Reason for Visit * Reason Onset Date Comments Question 06/21/2020 Encounter Details Date Type Department Care Team (Late Contact Info) Description 06/21/2020 Telephone [facility] Medical [facility] - Rheumatology [address] [place], [place] [id number] Ashlee Magallon MD [address] [facility] [address] [place] [address] Question Social History Tobacco Use Types Packs/Day Years [...] have Coronavirus / COVID-19? No / Unsure 06/16/2020 8:08 AM CDT documented as of this encounter Miscellaneous Notes * Telephone Encounter - Samantha Caputo MA - 06/21/2020 4:05 PM CDT Spoke with patient in regards to Dr Magallon and the dismissal from her practice. Dr Magallon was informed of her request and she stated that she would not prescribe Benlysta to a patient due to thelimited data. Patient verbalized understanding and stated that she would continue with her [facility] team. * Telephone Encounter - Shauna Johnson - 06/21/2020 3:53 PM CDT The patient called stating she is and her current maternal and medicine provider andcurrent plycor operator are going back and forth if she can take benlysta during her . She would like Dr. Magallon to weigh in on if she can take it or not. I explained that she was discharged from the practice, so Dr. Magallon will more than likely not have aresponse. She asked if I could forward the message to her. Her current plycor operator is at [facility] documented in this encounter Plan of Treatment Not on file documented as of this encounter Visit Diagnoses Not on filedocumented in this encounter Care Teams Building Rigger Relationship Specialty Start Date End Date Brian Mon MD PCP - General Internal Medicine 06/16/20 12/19/20 Sheldon Delgado MD Obstetrics and Gynecology 05/23/19 documented as of this encounter
--- OUTSIDE RECORDS SUMMARY | 2024-02-24 19:38 | XMS_ITS | Continuity of Care Document ---
Author Organization [facility] Address [address] [place] [phone] Care Team Providers Care Aircraft Detail Draftsperson Name Role Phone Mj Gayla Ivory Primary Care Physician Encounter [facility] Financial Number [id number] Date(s): 02/13/24 - 02/13/[address] [id number] Encounter Diagnosis Acute URI(Discharge Diagnosis) - 02/13/24 Discharge Disposition: Home or Self Care Attending Physician: Skip Patiño Encounter Type: Urgent Care Center Allergies, Adverse Reactions, Alerts Substance Criticality Severity Reaction Reaction Severity Status doxycycline Active penicillin Hives Active methylprednisolone-neomycin topical Active sulfa drugs Active Medications hydroxychloroquine 0 Start Date: 11/16/21 Status: Ordered Repeat number: 1 omeprazole 0 Start Date: 02/04/24 Status: Ordered Repeat number: 1 predniSONE 5 mg oral tablet 0 Start Date: 02/04/24 Status: Ordered Repeat number: 1 sertraline 25 mg oral tablet 0 Start Date: 11/16/21 Status: Ordered Repeat number: 1 Zithromax Z-Maximilian 250 mg oral tablet 1 packet(s), Oral, daily, 5 day(s), 6 tablet(s), Packet, 0, 0, 02/18/24 5:06:00 PM GRADES 1 THROUGH 5 TEACHER, as directedon package labeling, Route to Pharmacy Electronically, [facility]/pharmacy #[id number], [id number], 157, cm, 04/18/22 13:37:00 GRADES 1 THROUGH 5 TEACHER, Height, 79.5, kg, 04/18/22 13:37:00 GRADES 1 THROUGH 5 TEACHER, Weight, stated Start Date: 02/13/24 Stop Date: 02/18/24 Status: Ordered Quantity: 6.0 Unit: Repeat number: 1 Mental Status 02/13/24 Orientation Oriented x 4 Problem List Condition Confirmation Course Effective Dates Status Health St [facility] Informant Genital herpes Confirmed Active Procedures Procedure Date Related Diagnosis Body Site Status Appendectomy Completed Vital Signs Most recent to oldest [Reference Range]: 1 Temperature Temporal Artery [35.8-38 Deg C] 36.8 DegC (02/13/24 4:44 PM) Peripheral Pulse Rate [60-100 bpm] 85 bp m (02/13/24 4:44 PM) Respiratory Rate [14-22 br/min] 15 br/mi n (02/13/24 4:44 PM) Blood Pressure [89-139/60-90 mm Hg] 128/ 75mm Hg (02/13/24 4:44 PM) Social History Social History Type Response Alcohol Former alcohol user Substance Abuse Never drug user Smoking Status Former smoker;Never; Tobacco Cessation Counseling Requested N/A; Type: Cigarettes entered on: 04/03/23 Sex Sex Representation Female (finding) Hospital Discharge Instructions Patient Education 02/13/2024 17:09:27 URI, Viral, No Abx (Adult) Viral Upper Respiratory Illness (Adult) You have a viral upper respiratory illness (URI), which is another term for the common cold. This viral illness is contagious during the first few days. It's spread through the air by coughing and sneezing. It may also be spread by direct contact (touching the sick person and then touching your owneyes, nose, or mouth). Frequent handwashing will lower risk of spread. Most viral illnesses go awaywithin 7 to 10 days with rest and simple home remedies. Sometimes the illness may last for several weeks. Antibiotics will not kill a virus, and they are generally not prescribed for this condition. Home care ???If symptoms are severe, rest at home for the first 2 to 3 days or as advised. When you resume activity, don't let yourself get too tired. ???Don't smoke. If you need help stopping, talk with your healthcare provider. ???Stay away from cigarette smoke (yours or others???). ???You may use acetaminophen or ibuprofen to control pain and fever, unless another medicine was prescribed.??Talk with your provider before taking these medicines if you have chronic liver or kidneydisease. Also talk with your provider if you've had a stomach ulcer or digestive bleeding, or you take blood- thinning medicines. Never give aspirin to anyone under 18 years of age who is ill with a viral infection or fever. It may cause severe liver or brain damage, or even . ???Your appetite may be poor, so a light diet is OK. Stay well hydrated by drinking 6 to 8 glasses of fluids per day (water, soft drinks, juices, tea, or soup). Extra fluids will help loosen secretions in the nose and lungs. ???Whxf-ous-daqrpfb cold medicines will not shorten the length of time you???re sick. But they may be helpful for cough, sore throat, and nasal and sinus congestion. If you take prescription medicines, ask your healthcare provider or pharmacist which fvje-nev-xdjkeff medicines are safe to use. Don't use decongestants, if you have high blood pressure, without first talking with your healthcare provider. ???If you are taking other prescribed medicine, contact your healthcare provider before taking any fmho-qsc-bzttdkb medicines. Follow-up care Follow up with your healthcare provider, or as advised. When to seek medical advice Call your healthcare provider right away if any of these occur: ???Cough with lots of colored sputum (mucus) ???Severe headache; face, neck, or ear pain ???Difficulty??swallowing??due to throat pain ???Fever of 100.4??F (38??C) or higher , or as directed by your healthcare provider Call 911 Call 911 if any of these occur: ???Chest pain, shortness of breath, wheezing, or difficulty breathing ???Coughing up blood ???Very severe pain with swallowing, especially if it goes along with a muffled voice ???Feeling of doom ???Feeling dizzy, faint, or confused ???Lips or skin is blue, purple or tejeda in color ?? 1829-6922 [employer] All rights reserved. This information is not intended as a substitute for professional medical care. Always follow your healthcare professional's instructions. Nurse Urgent care center Note * Dayna Camacho RN: PERFORM Event Display: [facility] Note-Nursing Authored Date: [facility] Urine Pegnancy Test Entered On: 02/13/2024 17:09 GRADES 1 THROUGH 5 TEACHER Performed On: 02/13/2024 17:08 GRADES 1 THROUGH 5 TEACHER by Dayna Camacho RN Urine Test [facility] Urine Preg Specimen Collection : 02/13/2024 17:08 GRADES 1 THROUGH 5 TEACHER [facility] Urine Preg Gate Shear Operator : Dayna Camacho RN [facility] Urine Performed By : Dayna Camacho RN Urine Internal Control Present : IC0, IC1 [facility] Urine POC Result : Negative Dayna Camacho RN - 02/13/2024 17:08 GRADES 1 THROUGH 5 TEACHER * Dayna Camacho RN: PERFORM Event Display: [facility] Note-Nursing Authored Date: [id number] Urgent Care Triage Entered On: 02/13/2024 16:47 GRADES 1 THROUGH 5 TEACHER Performed On: 02/13/2024 16:44 GRADES 1 THROUGH 5 TEACHER by Dayna Camacho RN [facility] Triage Chief Complaint Description : Pt c/o productive cough, headache, ear pain, sore throat since Sunday. Denies fever Dayna Camacho RN - 02/13/2024 16:44 GRADES 1 THROUGH 5 TEACHER DCP GENERIC CODE Tracking Acuity : 4 - Less Urgent Tracking Group : [place] [facility] Dayna Camacho RN - 02/13/2024 16:44 GRADES 1 THROUGH 5 TEACHER Temperature Temporal Artery : 36.8 DegC(Converted to: 98.2 DegF) Peripheral Pulse Rate : 85 bpm Respiratory Rate : 15 br/min Systolic/Diastolic BP : 128 mm Hg Systolic/Diastolic BP : 75 mm Hg Oxygen Saturation : 99 % [facility] Oxygen Therapy : Room air Pain Symptoms : Yes Dayna Camacho RN - 02/13/2024 16:44 GRADES 1 THROUGH 5 TEACHER (As Of: 02/13/2024 16:47 GRADES 1 THROUGH 5 TEACHER) Problems(Active) Addisons disease (SNOMED CT :192044465 ) Name of Problem: Addisons disease ; Recorder: Nishant Arguello RN; Confirmation: Confirmed ; Classification: Patient Stated ; Code: [id number] ; Contributor System: PowerChart ; Last Updated: 11/16/2021 10:27 CDT ; Life Cycle Date: 11/16/2021 ; Life Cycle Status: Active ; Vocabulary: SNOMED CT Depression (SNOMED CT :21105243 ) Name of Problem: Depression ; Recorder: Nishant Arguello RN; Confirmation: Confirmed ; Classification: Patient Stated ; Code: 53037193 ; Contributor System: [employer] ; Last Updated: 11/16/2021 10:27 CDT ; Life Cycle Date: 11/16/2021 ; Life Cycle Status: Active ; Vocabulary: SNOMED CT Former smoker (SNOMED CT :59410197 ) Name of Problem: Former smoker ; Recorder: System, System; Confirmation: Confirmed ; Classification: Patient Stated ; Code: [id number] ; Last Updated: 04/03/2023 14:57 GRADES 1 THROUGH 5 TEACHER ; Life Cycle Date: 04/03/2023 ; Life Cycle Status: Active ; Vocabulary: SNOMED CT Genital herpes (SNOMED CT :65662345 ) Name of Problem: Genital herpes ; Recorder: Minal Arreguin DIRECTOR OF DISTRICT OFFICE; Confirmation: Confirmed ; Classification: Medical ; Code: 96446243 ; Contributor System: [employer] ; Last Updated: 08/08/2017 16:00CDT ; Life Cycle Date: 08/08/2017 ; Life Cycle Status: Active ; Vocabulary: SNOMED CT Lupus (SNOMED CT :444429198 ) Name of Problem: Lupus ; Recorder: Nishant Arguello RN; Confirmation: Confirmed ; Classification: Patient Stated ; Code: 824891012 ; Contributor System: [employer] ; Last Updated: 11/16/2021 10:27 CDT ; Life Cycle Date: 11/16/2021 ; Life Cycle Status: Active ; Vocabulary: SNOMED CT Diagnoses(Active) URI - Upper respiratory infection Date: 02/13/2024 ; Diagnosis Type: Reason For Visit ; Confirmation: Complaint of ; Clinical Dx: URI- Upper respiratory infection ; Classification: Medical ; Clinical Service: Emergency medicine ; Code: PNED ; Probability: 0 ; Diagnosis Code: [id number] - Procedure History (As Of: 02/13/2024 16:47 GRADES 1 THROUGH 5 TEACHER) Anesthesia Minutes: 0 ; Procedure Name: Appendectomy ; Procedure Minutes: 0 Document Allergies/Home Meds Anticoagulant Therapy in Last 7 Days : Dayna Sanchez RN - 02/13/2024 16:44 GRADES 1 THROUGH 5 TEACHER (As Of: 02/13/2024 16:47 GRADES 1 THROUGH 5 TEACHER) Allergies (Active) doxycycline Estimated Onset Date: Unspecified ; Created By: Dayna Camacho RN; Reaction Status: Active ; Category: Drug ; Substance: doxycycline ; Type: Allergy ; Updated By: Dayna Camacho RN; Reviewed Date: 02/13/2024 16:45 GRADES 1 THROUGH 5 TEACHER methylprednisolone-neomycin topical Estimated Onset Date: Unspecified ; Created By: Sherry Moraes RN; Reaction Status: Active ; Category: Drug ; Substance: methylprednisolone-neomycin topical ; Type: Allergy ; Updated By: Tori Moraes RN; Reviewed Date: 02/13/2024 16:45 GRADES 1 THROUGH 5 TEACHER penicillin Estimated Onset Date: Unspecified ; Reactions: Hives ; Created By: Marlene Cardoza Computer Jewel Bearing Driller; Reaction Status: Active ; Category: Drug ; Substance: penicillin ; Type: Allergy ; Updated By: Marlene Cardoza Computer Jewel Bearing Driller; Reviewed Date: 02/13/2024 16:45 GRADES 1 THROUGH 5 TEACHER sulfa drugs Estimated Onset Date: Unspecified ; Created By: Pako Rodriguez RN; Reaction Status: Active ; Category: Drug ; Substance: sulfa drugs ; Type: Allergy ; Updated By: Pako Rodriguez RN; Reviewed Date: 02/13/2024 16:45 GRADES 1 THROUGH 5 TEACHER Medication List (As Of: 02/13/2024 16:47 GRADES 1 THROUGH 5 TEACHER) Home Meds omeprazole : omeprazole ; Status: Documented ; Ordered As Mnemonic: omeprazole ; Simple Display Line: 0 Refill(s) ; Catalog Code: omeprazole ; Order Dt/Tm: 02/04/2024 16:52 GRADES 1 THROUGH 5 TEACHER predniSONE : predniSONE ; Status: Documented ; Ordered As Mnemonic: predniSONE 5 mg oral tablet ; Simple Display Line: 0 Refill(s) ; Catalog Code: predniSONE ; Order Dt/Tm: 02/04/2024 16:52 GRADES 1 THROUGH 5 TEACHER hydroxychloroquine : hydroxychloroquine ; Status: Documented ; Ordered As Mnemonic: hydroxychloroquine ; Simple Display Line: 0 Refill(s) ; Catalog Code: hydroxychloroquine ; Order Dt/Tm: 11/16/2021 10:26 CDT sertraline : sertraline ; Status: Documented ; Ordered As Mnemonic: sertraline 25 mg oral tablet ; Simple Display Line: 0 Refill(s) ; Catalog Code: sertraline ; Order Dt/Tm: 11/16/2021 10:26 CDT C General Assessment/Social Hx Child/Parent Domestic Concerns : None Little interest/pleasure in doing things? : No Feeling down, depressed, or hopeless? : No [facility] Plan of Care Discussed : Yes Dayna Camacho RN - 02/13/2024 16:44 GRADES 1 THROUGH 5 TEACHER Social History (As Of: 02/13/2024 16:47 GRADES 1 THROUGH 5 TEACHER) Tobacco: Former smoker, Smokeless Tobacco use: Never. N/A Cessation Counseling. Cigarettes (Last Updated: 04/03/2023 14:57 GRADES 1 THROUGH 5 TEACHER by Sherry Moraes RN) Alcohol: Former alcohol user (Last Updated: 04/03/2023 14:57 GRADES 1 THROUGH 5 TEACHER by Sherry Moraes RN) Substance Abuse: Never drug user (Last Updated: 04/03/2023 14:57 GRADES 1 THROUGH 5 TEACHER by Sherry Moraes RN) Preferred Language Preferred Language of Patient/Caregiver : Slovenian Preferred Mode of Communication : Verbal Dayna Camacho RN - 02/13/2024 16:44 GRADES 1 THROUGH 5 TEACHER [facility] Primary Pain Primary Pain Location : Throat Primary Pain Intensity : 7 = severe pain Primary Pain Quality : Sharp Dayna Camacho RN - 02/13/2024 16:44 GRADES 1 THROUGH 5 TEACHER Fall Risk Assessment Peds with adult : No Unsteady when Walking/Climbing Stairs? : No History of Fall in Last 3 Months [place] : No Any Active Secondary Medical Diagnosis [place] : No Use of Ambulatory Aid [place] : None, bedrest, wheelchair, nurse IV or Any Vascular Access Present [place] : No Gait/Transferring Fall Risk [place] : Normal, bedrest, immobile Mental Status Fall Risk [place] : Oriented to own ability [place] Fall Risk Score : 0 Dayna Camacho RN - 02/13/2024 16:44 GRADES 1 THROUGH 5 TEACHER Note * Skip PatiñoP: PERFORM Event Display: [facility] Patient Summary Authored Date: [id number] UMER BOWEN Dianelys :1990 Visit Date:02/13/2024 [facility] Urgent [facility] Discharge Instructions Patient Information Name:UMER BOWEN Address: [address] [place] [id number] Sex:Female Date of :1990 Location:[facility] Registration Date and Time:02/13/2024 16:24 GRADES 1 THROUGH 5 TEACHER Primary Care Physician: Gayla Barker DIRECTOR OF DISTRICT OFFICE, Attending Physician: Skip Patiño PATTERN PUNCHER, Location Information ?[facility] [place]?[address]? Your Diagnosis Diagnosis ?Acute URI?Discharge ?? Your Care Team Attending Physician - Skip Patiño Primary Care Physician - Gayla Barker DIRECTOR OF DISTRICT OFFICE Discharge Vitals Vital Signs Temperature Temporal Artery: 36.8 DegC Systolic Blood Pressure: 128 mm Hg Diastolic Blood Pressure: 75 mm Hg Peripheral Pulse Rate: 85 bpm Respiratory Rate: 15 br/min Oxygen Saturation: 99 % Primary Pain Location: Throat What's Next? Referral Information Referral Information ? No Results Found ? Medications [facility] provided you with a [...] pharmacist. What How Much When Instructions New azithromycin (Zithromax Z-Maximilian 250 mg oral tablet) 1 packet(s) By mouth Daily Duration: 5 day(s) as directed on package labeling ?? Pickup at [facility]/pharmacy #[id number] Unchanged hydroxychloroquine Unchanged omeprazole Unchanged predniSONE (predniSONE 5 mg oral tablet) Unchanged sertraline (sertraline 25 mg oral tablet) Pharmacy Information [facility]/pharmacy #[id number]: [address] [place], [place] [phone] Medications and Immunizations Administered Medication Administrations ? No Results Found ? Allergies doxycycline methylprednisolone-neomycin topical penicillin??(Hives) sulfa drugs Labs Test Name Test Result Date/TimeInfluenza A RNA Negative 02/13/2024 16:48 GRADES 1 THROUGH 5 TEACHER Influenza B RNA Negative 02/13/2024 16:48 GRADES 1 THROUGH 5 TEACHER SARS-CoV-2 (COVID-19) RNA Negative 02/13/2024 16:48 GRADES 1 THROUGH 5 TEACHER Strep A DNA Negative 02/13/2024 16:48 GRADES 1 THROUGH 5 TEACHER Performed atRosa Bashir [facility] 02/13/2024 16:48 GRADES 1 THROUGH 5 TEACHER [facility] Urine POC Result Negative 02/13/2024 17:08 GRADES 1 THROUGH 5 TEACHER Urine Internal Control Present IC0, IC1 02/13/2024 17:08 GRADES 1 THROUGH 5 TEACHER [facility] Urine Preg Gate Shear Operator Doug Dayna Ivory ??RN 02/13/2024 17:08 GRADES 1 THROUGH 5 TEACHER [facility] Urine Preg Specimen Collection 02/13/2024 17:08 GRADES 1 THROUGH 5 TEACHER 02/13/2024 17:08 GRADES 1 THROUGH 5 TEACHER Radiology ? COMPLETED RADIOLOGY IMAGING STUDIES: ? No Imaging Results in the last 36 hours Education Materials Viral Upper Respiratory Illness (Adult) You have a viral upper respiratory illness (URI), which is another term for the common cold. This viral illness is contagious during the first few days. It's spread through the air by coughing and sneezing. It may also be spread by direct contact (touching the sick person and then touching your owneyes, nose, or mouth). Frequent handwashing will lower risk of spread. Most viral illnesses go awaywithin 7 to 10 days with rest and simple home remedies. Sometimes the illness may last for several weeks. Antibiotics will not kill a virus, and they are generally not prescribed for this condition. Home care ???If symptoms are severe, rest at home for the first 2 to 3 days or as advised. When you resume activity, don't let yourself get too tired. ???Don't smoke. If you need help stopping, talk with your healthcare provider. ???Stay away from cigarette smoke (yours or others???). ???You may use acetaminophen or ibuprofen to control pain and fever, unless another medicine was prescribed.??Talk with your provider before taking these medicines if you have chronic liver or kidneydisease. Also talk with your provider if you've had a stomach ulcer or digestive bleeding, or you take blood- thinning medicines. Never give aspirin to anyone under 18 years of age who is ill with a viral infection or fever. It may cause severe liver or brain damage, or even . ???Your appetite may be poor, so a light diet is OK. Stay well hydrated by drinking 6 to 8 glasses of fluids per day (water, soft drinks, juices, tea, or soup). Extra fluids will help loosen secretions in the nose and lungs. ???Xxcz-uzy-fgmwnpi cold medicines will not shorten the length of time you???re sick. But they may be helpful for cough, sore throat, and nasal and sinus congestion. If you take prescription medicines, ask your healthcare provider or pharmacist which taka-crr-xagpbic medicines are safe to use. Don't use decongestants, if you have high blood pressure, without first talking with your healthcare provider. ???If you are taking other prescribed medicine, contact your healthcare provider before taking any sogw-jvq-ytcivrw medicines. Follow-up care Follow up with your healthcare provider, or as advised. When to seek medical advice Call your healthcare provider right away if any of these occur: ???Cough with lots of colored sputum (mucus) ???Severe headache; face, neck, or ear pain ???Difficulty??swallowing??due to throat pain ???Fever of 100.4??F (38??C) or higher , or as directed by your healthcare provider Call 911 Call 911 if any of these occur: ???Chest pain, shortness of breath, wheezing, or difficulty breathing ???Coughing up blood ???Very severe pain with swallowing, especially if it goes along with a muffled voice ???Feeling of doom ???Feeling dizzy, faint, or confused ???Lips or skin is blue, purple or tejeda in color ? [id number] [employer] All rights reserved. This information is not intended as a substitute for professional medical care. Always follow your healthcare professional's instructions. In need of a Physician? Call [facility]' Physician Referral Service [phone]. Thank you for choosing [facility] for your care. The examination [...] follow up instructions and have verbalized understanding. Patient/Artificial Marble Worker Signature: Provider Signature: Date/Time:02/13/2024 17:11:57 * Skip PatiñoP: PERFORM, SIGN, VERIFY Event Display: [facility] Patient Education Authored Date: [id number] Pulmonary Viral Upper Respiratory Illness (Adult) You have a viral upper respiratory illness (URI), which is another term for the common cold. This viral illness is contagious during the first few days. It's spread through the air by coughing and sneezing. It may also be spread by direct contact (touching the sick person and then touching your owneyes, nose, or mouth). Frequent handwashing will lower risk of spread. Most viral illnesses go awaywithin 7 to 10 days with rest and simple home remedies. Sometimes the illness may last for several weeks. Antibiotics will not kill a virus, and they are generally not prescribed for this condition. Home care ???If symptoms are severe, rest at home for the first 2 to 3 days or as advised. When you resume activity, don't let yourself get too tired. ???Don't smoke. If you need help stopping, talk with your healthcare provider. ???Stay away from cigarette smoke (yours or others???). ???You may use acetaminophen or ibuprofen to control pain and fever, unless another medicine was prescribed.??Talk with your provider before taking these medicines if you have chronic liver or kidneydisease. Also talk with your provider if you've had a stomach ulcer or digestive bleeding, or you take blood- thinning medicines. Never give aspirin to anyone under 18 years of age who is ill with a viral infection or fever. It may cause severe liver or brain damage, or even . ???Your appetite may be poor, so a light diet is OK. Stay well hydrated by drinking 6 to 8 glasses of fluids per day (water, soft drinks, juices, tea, or soup). Extra fluids will help loosen secretions in the nose and lungs. ???Ctte-dkc-osuqqfd cold medicines will not shorten the length of time you???re sick. But they may be helpful for cough, sore throat, and nasal and sinus congestion. If you take prescription medicines, ask your healthcare provider or pharmacist which thma-cyu-mqgiivg medicines are safe to use. Don't use decongestants, if you have high blood pressure, without first talking with your healthcare provider. ???If you are taking other prescribed medicine, contact your healthcare provider before taking any qmll-abd-vptynpo medicines. Follow-up care Follow up with your healthcare provider, or as advised. When to seek medical advice Call your healthcare provider right away if any of these occur: ???Cough with lots of colored sputum (mucus) ???Severe headache; face, neck, or ear pain ???Difficulty??swallowing??due to throat pain ???Fever of 100.4??F (38??C) or higher , or as directed by your healthcare provider Call 911 Call 911 if any of these occur: ???Chest pain, shortness of breath, wheezing, or difficulty breathing ???Coughing up blood ???Very severe pain with swallowing, especially if it goes along with a muffled voice ???Feeling of doom ???Feeling dizzy, faint, or confused ???Lips or skin is blue, purple or tejeda in color ?? [id number] [employer] All rights reserved. This information is not intended as a substitute for professional medical care. Always follow your healthcare professional's instructions. * Skip Patiño PATTERN PUNCHER: MODIFY, MODIFY, MODIFY, MODIFY, SIGN, VERIFY, PERFORM, MODIFY, MODIFY, MODIFY, MODIFY Event Display: [facility] Note-Physician Authored Date: [id number] Patient: UMER BOWEN Age: 33 years Sex: Female : 1990 Associated Diagnoses: None Author: Skip Patiño Basic Information Vital signs: Vital Signs 02/13/2024 16:44 GRADES 1 THROUGH 5 TEACHER Temperature Temporal Artery 36.8 DegC Peripheral Pulse Rate 85 bpm Respiratory Rate 15 br/min Systolic Blood Pressure 128 mm Hg Diastolic Blood Pressure 75 mm Hg , Primary Pain Intensity : Primary Pain Intensity 02/13/2024 16:44 GRADES 1 THROUGH 5 TEACHER Primary Pain Intensity 7 = severe pain , Oxygen saturation: Basic Oxygen Information 02/13/2024 16:44 GRADES 1 THROUGH 5 TEACHER Oxygen Saturation 99 % . Time seen: Date & time 02/13/2024 16:42:00. History source: Patient. Arrival mode: Private vehicle. History limitation: None. Additional information:: Chief Complaint from Nursing Triage Note 02/13/2024 16:44 GRADES 1 THROUGH 5 TEACHER Chief Complaint Description Pt c/o productive cough, headache, ear pain, sore throat since Sunday. Denies fever . History of Present Illness The patient presents with an upper respiratory infection. The onset was 2 days ago. The course/duration of symptoms is worsening. Risk factors consist of lupus, addisons. Therapy today: none. Associated symptoms: dry cough, nasal congestion, sore throat and ear ache. Review of Systems Constitutional symptoms: Negative except as documented in HPI no fever, no chills, no fatigue. Skin symptoms: Negative except as documented in HPI. Eye symptoms: Negative except as documented in HPI. ENMT symptoms: Sinus pain. Respiratory symptoms: Negative except as documented in HPI no shortness of breath, no wheezing. Cardiovascular symptoms: Negative except as documented in HPI. Gastrointestinal symptoms: Negative except as documented in HPI. Musculoskeletal symptoms: Negative except as documented in HPI. Neurologic symptoms: Negative except as documented in HPI. Psychiatric symptoms: Negative except as documented in HPI. Health Status Allergies: Allergic Reactions (Selected) Severity Not Documented Doxycycline- No reactions were documented. Methylprednisolone-neomycin topical- No reactions were documented. Penicillin- Hives. Sulfa drugs- No reactions were documented.. Past Medical/ Family/ Social History Medical history Problem List from Nurse's Notes All Problems Addisons disease / SNOMED CT 327149457 / Confirmed Depression / SNOMED CT 61256496 / Confirmed Former smoker / SNOMED CT 19084647 / Confirmed Genital herpes / SNOMED CT 34874330 / Confirmed Lupus / SNOMED CT 513423232 / Confirmed. Surgical history: Procedure History from Nurses Notes Appendectomy ([id number]).. Family history: Family History from Nurse's Notes No family history items have been selected or recorded.. Social history: Social History from Nurses Notes Alcohol Details: Former alcohol user Substance Abuse Details: Never drug user Tobacco Details: Former smoker, Smokeless Tobacco use: Never. N/A Cessation Counseling. Cigarettes . Physical Examination General: Alert. no acute distress. Skin: Warm. dry. pink. Head: Normocephalic. atraumatic. Neck: Supple. trachea midline. Eye: Pupils are equal, round and reactive to light. normal conjunctiva. Ears, nose, mouth and throat: Oral mucosa moist. Tympanic membrane: dullness, no erythema, not bulging. Throat: erythema and drainage, not with exudate, no swelling. Cardiovascular: Regular rate and rhythm. Normal peripheral perfusion. Respiratory: Lungs are clear to auscultation. respirations are non-labored. breath sounds are equal. Symmetrical chest wall expansion. Neurological: Alert and oriented to person, place, time, and situation. No focal neurological deficit observed. CN II-XII intact. Lymphatics: tender left anterior cervical lymph nodes Psychiatric: Cooperative. appropriate mood & affect. Medical Decision Making Differential Diagnosis: Upper respiratory infection, viral syndrome, sinusitis, allergic rhinitis. Rationale ros, pe, History, radiographic studies (if performed) , lab testing (if performed), and exam were considered with concern for the possible conditions listed above. , patient was instructed to begin abx in 2-3 days if no better. . Results review: Lab results : Lab View 02/13/2024 17:08 GRADES 1 THROUGH 5 TEACHER [facility] Urine POC Result Negative Urine Internal Control Present IC0, IC1 [facility] Urine Preg Gate Shear Operator Dayna Camacho RN [facility] Urine Preg Specimen Collection 02/13/2024 17:08 02/13/2024 16:48 GRADES 1 THROUGH 5 TEACHER Influenza A RNA Negative Influenza B RNA Negative SARS-CoV-2 (COVID-19) RNA Negative Strep A DNA Negative Performed at. [facility] Performed at. [facility] Performed at. [facility] . Notes she stated she has tolerated zpak previously without complications of cp or sob. she does nottake hydroxychloroquine while taking zpak. . Procedure Critical care services delivered? No Impression and Plan Diagnosis Acute URI : [id number] J06.9, Discharge, Emergency medicine, Medical Discharge plan Condition: Unchanged. Dispositioned: To home. Prescriptions: Discharge Medications Pharmacy: Zithromax Z-Maximilian 250 mg oral tablet (Prescribe): 1 packet(s), Oral, daily, for 5 day(s), as directedon package labeling, 6 tablet(s), 0 Refill(s). Patient was given the following educational materials: URI, Viral, No Abx (Adult). Follow up with: Primary Care Physician, In: as needed. Counseled: Patient, Regarding diagnosis, Regarding diagnostic results, Regarding treatment plan, Regarding prescription, Patient indicated understanding of instructions. [Electronically Signed on 02/13/2024 05:11 PM GRADES 1 THROUGH 5 TEACHER] MELINDA Diamond Patient Care team information Care Team Personnel Name: Gayla Barker DIRECTOR OF DISTRICT OFFICE Member Role: Primary Care Physician [address]: [address] [place] [address] , [address] Telecom: Insurance Providers Guarantor name: [email or web address] Plan Information #: 2 Payer: Self Pay Member Number: NA Policy Number: NA Group Number: NA
--- OUTSIDE RECORDS SUMMARY | 2024-02-24 19:38 | XMS_ITS | Encounter Summary ---
Author Organization [facility] Address [address] [place] [address] Care Team Providers Care Survey Manager Name Role Phone Sheldon Delgado MD Unavailable [phone] Brian Mon MD Primary Care Provider [phone] Reason for Visit * Reason Comments Care is seeing the M at [facility] and stated had US on sunday, her GA is 7weeks 4 days by their US Encounter Details Date Type Department Care Team (Late st Contact Info) Description 06/16/2020 11:45 AM CDT Office Visit [facility] - [facility] [address] [place] [address], [address] [place] [address] Andrey Birch MD [facility][note 3]1 [facility] [address] [place] [address] Threatened , antepartum (HCC) (Primary Dx); Systemic lupus erythematosus, unspecified SLE type, unspecified organ involvement status (HCC); Nausea and vomiting during (HCC) Social History Tobacco Use Types Packs/Day Years Used Date Smoking Tobacco: Former Cigarettes Smokeless Tobacco: Never Tobacco Cessation:Counseling Given: No Alcohol Use Standard Drinks/Week Comments No 0 [...] AM CDT documented as of this encounter Last Filed Vital Signs Vital Sign Reading Time Taken Comments Blood Pressure 110/76 06/16/2020 12:00 PM CDT Pulse 87 06/16/2020 12:00 PM CDT Temperature - - Respiratory Rate - - Oxygen Saturation - - Inhaled Oxygen Concentration - - Weight 79.8 kg (176 lb) 06/16/2020 12:00 PM CDT Height 160 cm (5' 3 ) 06/16/2020 12:00 PM CDT Body Mass Index 31.18 06/16/2020 12:00 PM CDT documented in this encounter Progress Notes * Andrey Birch MD - 06/16/2020 12:12 PM CDT Subjective: Carito Madison is a 30 year old female here for threatened . Current Complaints:30 year old WF known to me from previous with SLE. She has been seen earlier thispregnancy by Deb JACKSON and Dr. Delgado. She would like to coordinate her care here. She notes cramping and spotting over the weekend. EDC 01/30 by 6w jonathan. ED US revealed FHTs. Bleeding better today. Breast tenderness present. Nausea which has yet to interfere with ADLs. Gynecologic History No LMP recorded (lmp unknown). Patient is . Contraception: none Obstetric History OB History 4 Para 1 Term 1 AB 1 Living SAB 1 TAB Ectopic Multiple Live Births 1 Obstetric Comments Menarche 15 HSV No abnormal paps Received Gardasil Past Medical History: Diagnosis Date ??? Anemia ??? Angina at rest ??? Fibromyalgia ??? Hypertension ??? Lupus Past Surgical History: Procedure Laterality Date ??? Appendectomy ??? Dilation and Curettage ??? OTHER SURGERY Right 2019 right wrist median nerve repair Family History Problem Relation Name Age of Onset ??? Arthritis - Rheumatoid Paternal Grandmother ??? Hypertension Mother ??? Diabetes - Type 2 Mother ??? None Known Father Current Outpatient Medications Medication Sig Dispense Refill ??? ALPRAZolam (XANAX) 0.25 MG tablet Take 0.25 mg by mouth 3 times daily as needed for Anxiety ??? hydroxychloroquine (PLAQUENIL) 200 MG tablet TAKE ONE AND ONE-HALF TABLET DAILY 45 tablet 2 ??? omeprazole (PRILOSEC) 20 MG capsule Take 1 capsule by mouth once daily (Patient taking differently: Take 20 mg by mouth as needed ) 30 capsule 2 ??? predniSONE (DELTASONE) 5 MG tablet Take 15 mg by mouth once daily ??? sertraline (ZOLOFT) 25 MG tablet ??? valACYclovir (VALTREX) 1 GM tablet Take 1,000 mg by mouth every 12 hours No current facility-administered medications for this visit. Allergies Allergen Reactions ??? Penicillins Urticaria and Rash ??? Escitalopram Other and Rash Caused seizures Caused seizures Caused seizures Caused seizures Caused seizures Caused seizures ??? Aripiprazole Other ??? Venlafaxine Itching ??? Methylprednisolone Other Syncope Social History Socioeconomic History ??? Marital status: Spouse name: Not on file ??? Number of children: 0 ??? Years of education: Not on file ??? Highest education level: Not on file Occupational History ??? Not on file Tobacco Use ??? Smoking status: Former Smoker Packs/day: 0.00 ??? Smokeless tobacco: Never Used Vaping Use ??? Vaping Use: Never used Substance and Sexual Activity ??? Alcohol use: No ??? Drug use: Not Currently Types: Marijuana Comment: last use 09/22/2018 patient states not using at this time ??? Sexual activity: Yes Partners: Male Other Topics Concern ??? Not on file Social History Narrative ??? Not on file Social Determinants of Health Financial Resource Strain: ??? Difficulty of Paying Living Expenses: Food Insecurity: ??? Worried About Running Out of Food in the Last Year: ??? Ran Out of Food in the Last Year: Transportation Needs: ??? Lack of Transportation (Medical): ??? Lack of Transportation (Non-Medical): Physical Activity: ??? Days of Exercise per Week: ??? Minutes of Exercise per Session: Stress: ??? Feeling of Stress : Social Connections: ??? Frequency of Communication with Friends and Family: ??? Frequency of Social Gatherings with Friends and Family: ??? Attends [employer] Services: ??? Active Member of Clubs or Organizations: ??? Attends Club or Organization Meetings: ??? Marital Status: Intimate Partner Violence: ??? Fear of Current or Ex-Partner: ??? Emotionally Abused: ??? Physically Abused: ??? Sexually Abused: Review of Systems Pertinent items are noted in HPI Objective: BP 110/76 Pulse 87 Ht 5' 3 Wt 176 lb BMI 31.18 kg/m2 Body mass index is 31.18 kg/m??. Height: 5' 3 General: well developed, well nourished, White/ female, NAD, alert and oriented to person,place, and time Abdomen: soft without mass, non-distended, non-tender, no hernias present, no organomegaly present Vulva: Normal Female Genitalia, Bartholin's, Urethra, [place] normal : Normal Urethral Meatus Vagina: Normal mucosa, no discharge, No Lesions Cervix: no lesions, nulliparous appearance, no cervical motion tenderness Mucous: No Discharge Uterus: Normal shape, position and consistency, [place], Non tender, 6-8w size Left Adnexa: No masses, nodularity, tenderness Right Adnexa: No masses, nodularity, tenderness Brief TV US reveals SLIUP with FHT present Assessment: ICD-10-CM 1. Threatened , antepartum O20.0 2. Systemic lupus erythematosus, unspecified SLE type, unspecified organ involvement status M32.[address] [facility]aternal [facility] @ [facility] 3. Nausea and vomiting during O21.9 Plan: See orders RTC 1 week Orders Placed This Encounter ??? [facility]aternal [facility] @ [facility] K. Dilan Birch MD, FACOG documented in this encounter Plan of Treatment Not on file documented as of this encounter Visit Diagnoses Diagnosis Threatened , antepartum (HCC)- Primary Threatened , antepartum Systemic lupus erythematosus, unspecified SLE type, unspecified organ involvement status (HCC) Nausea and vomiting during (HCC) documented in this encounter Care Teams Survey Manager Relationship Specialty Start Date End Date Brian Mon MD PCP - General Internal Medicine 06/16/20 12/19/20 Sheldon Delgado MD Obstetrics and Gynecology 05/23/19 documented as of this encounter
--- OUTSIDE RECORDS SUMMARY | 2024-02-24 19:38 | XMS_ITS | Encounter Summary ---
Author Organization [facility] Address [address] [place] [address] Care Team Providers Care Press Writer Name Role Phone Sheldon Delgado MD Unavailable [phone] Huseyin Dangelo MD Primary Care Provider [phone] Reason for Visit * Reason Comments Epidemic Concern Pt states that her r heumatologist got a postive COVID-19 result on her despite negative results in her chart. She is requesting another swab. Encounter Details Date Type Department Care Team (Late st Contact Info) Description 08/28/2019 11:12 AM CDT - 08/28/2019 11:29 AM CDT Emergency ER at [address] [address] Screening examination for infectious disease Discharge Disposition: Home or Self Care Social History Tobacco Use Types Packs/Day Years [...] on file documented as of this encounter Last Filed Vital Signs Vital Sign Reading Time Taken Comments Blood Pressure 131/91 08/28/2019 11:26 AM CDT Pulse 99 08/28/2019 11:29 AM CDT Temperature 37.1 ??C (98.8 ??F) 08/28/2019 10:08 AM C DT Respiratory Rate 14 08/28/2019 11:29 AM CDT Oxygen Saturation 100% 08/28/2019 11:29 AM CDT Inhaled Oxygen Concentration - - Weight - - Height - - Body Mass Index - - documented in this encounter Discharge Instructions * Discharge Instructions* Liam Lowery PA-C - 08/28/2019 11:22 AM CDT Please self quarantine until covid test is resulted and confirmed to be negative * Attachments The following attachments cannot be sent through Care Everywhere. * Normal Exam (AfterCare(R) Instructions(ER/ED)) (Serbian) documented in this encounter Medications at Time of Discharge Medication Sig Dispensed Refills Start Date End Date ALPRAZolam (XANAX) 0.25 MG tablet Take 0.25 mg by mouth 3 times daily as needed for Anxiety hydroxychloroquine (PLAQUENIL) 200 MG tablet TAKE ONE AND ONE-HALF TABLET DAILY 45 tablet 2 06/21/2019 omeprazole (PRILOSEC) 20 MG capsule Take 1 capsule by mouth once daily 30 capsule 2 06/21/2019 predniSONE (DELTASONE) 5 MG tablet Take 3 (three) tablets by mouth once daily valACYclovir (VALTREX) 1 GM tablet Take 1 (one) tablet by mouth every 12 hours albuterol HFA (PROVENTIL;VENTOLIN;NV OAIR) 108 (90 Base) MCG/ACT inhaler 04/28/2019 06/16/2020 azaTHIOprine (IMURAN) 50 MG tabletIndications:Othe r forms of systemic lupus erythematosus, unspecified organ involvement status (HCC) Take 1 tablet by mouth once daily 30 tablet 2 06/21/2019 06/16/2020 clomiPHENE (CLOMID) 50 MG tabletIndications:Irre gular periods Take 1 tablet by mouth once daily Day 5 through Day 10 of menstrual cycle. 3 cycles worth of medication ordered. 15 tablet 03/31/2019 06/16/2020 folic acid (FOLVITE) 1 MG tablet Take 1 tablet by mouth once daily 30 tablet 2 04/01/2019 06/16/2020 meloxicam (MOBIC) 15 MG tablet Take 15 mg by mouth once daily 06/16/2020 predniSONE (DELTASONE) 10 MG tablet Take 4 tabs daily x3 days 12 tablet 06/12/2019 06/16/2020 predniSONE (DELTASONE) 10 MG tablet Take 1 tablet by mouth once daily 30 tablet 2 05/21/2019 06/16/2020 Vit-DSS-Fe Cbn-FA ( MULTIVITAMIN-ULTRA PO) Take 1 tablet by mouth once daily 06/16/2020 vitamin D, ergocalciferol, (DRISDOL) 1.25 MG (75202 UT) capsule Take 1 capsule by mouth every 7 days 12 capsule 06/21/2019 06/16/2020 documented as of this encounter Progress Notes * Blank Washburn RN - 08/28/2019 11:29 AM CDT Pt called on 09/01/2019 at 1347. Update on COVID19 test results provided. documented in this encounter ED Notes * Britni Lerner RN - 08/28/2019 11:29 AM CDT Reviewed discharge instructions and follow up care with this patient. Patient verbalized understanding of this discussion and denies any further questions or concerns at this time. Patient ambulatoryout of department with steady gait and no distress noted. * Liam Lowery PA-C - 08/28/2019 11:13 AM CDT [facility] [id number] [facility] History Chief Complaint Patient presents with ??? 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 She is requesting another swab. HPI Patient is a 29-year-old female who comes to the ED today requesting covid test. Her rheumatologistwill not see her without a negative COVID-19 test. Although patient was tested recently it was negative apparently there was some miscommunication and her maintenance technician 3rd shift and her work is requiring herto have another test done to confirm that she is negative. She denies any upper respiratory symptoms, fevers, shortness of breath and says that she is feeling fine. Past Medical History: Diagnosis Date ??? Anemia ??? Angina at rest ??? Fibromyalgia ??? Hypertension ??? Lupus Past Surgical History: Procedure Laterality Date ??? Appendectomy ??? Dilation and Curettage ??? OTHER SURGERY Right 2019 right wrist median nerve repair Family History Problem Relation Name Age of Onset ??? Arthritis - Rheumatoid Paternal Grandmother Social History Socioeconomic History ??? Marital status: Spouse name: Not on file ??? Number of children: 0 ??? Years of education: Not on file ??? Highest education level: Not on file Occupational History ??? Not on file Social Needs ??? Financial resource strain: Not hard at all ??? Food insecurity Worry: Never true Inability: Not on file ??? Transportation needs Medical: No Non-medical: No Tobacco Use ??? Smoking status: Former Smoker Packs/day: 0.00 ??? Smokeless tobacco: Never Used Substance and Sexual Activity ??? Alcohol use: No ??? Drug use: Never Types: Marijuana Comment: last use 09/22/2018 patient states not using at this time ??? Sexual activity: Yes Partners: Male Lifestyle ??? Physical activity Days per week: Not on file Minutes per session: Not on file ??? Stress: Not on file Relationships ??? Social connections Talks on phone: Not on file Gets together: Not on file Attends sabianist service: Not on file Active member of club or organization: Not on file Attends meetings of clubs or organizations: Not on file Relationship status: Not on file ??? Intimate partner violence Fear of current or ex partner: Not on file Emotionally abused: Not on file Physically abused: Not on file Forced sexual activity: Not on file Other Topics Concern ??? Not on file Social History Narrative ??? Not on file Review of Systems Review of Systems Constitutional: Negative for chills, fever and malaise/fatigue. HENT: Negative for ear pain and tinnitus. Eyes: Negative for blurred vision and double vision. Respiratory: Negative for shortness of breath. Cardiovascular: Negative for chest pain. Gastrointestinal: Negative for abdominal pain, constipation, diarrhea, nausea and vomiting. Skin: Negative for rash. Neurological: Negative for focal weakness, loss of consciousness, weakness and headaches. Psychiatric/Behavioral: Negative for suicidal ideas. All other systems reviewed and are negative. Physical Exam BP 131/91 Pulse 99 Temp 98.8 ??F (37.1 ??C) Resp 14 LMP 04/14/2019 SpO2 100% Physical Exam Vitals signs reviewed. Constitutional: Appearance: She is well-developed. HENT: Head: Normocephalic and atraumatic. Eyes: Pupils: Pupils are equal, round, and reactive to light. Cardiovascular: Rate and Rhythm: Normal rate and regular rhythm. Heart sounds: Normal heart sounds. No murmur. No friction rub. No gallop. Pulmonary: Effort: Pulmonary effort is normal. No respiratory distress. Breath sounds: Normal breath sounds. No wheezing or rales. Abdominal: General: Bowel sounds are normal. There is no distension. Palpations: Abdomen is soft. There is no mass. Tenderness: There is no abdominal tenderness. There is no guarding or rebound. Hernia: No hernia is present. Skin: General: Skin is warm and dry. Neurological: Mental Status: She is alert and oriented to person, place, and time. Cranial Nerves: No cranial nerve deficit. Coordination: Coordination normal. Deep Tendon Reflexes: Reflexes are normal and symmetric. Psychiatric: Behavior: Behavior normal. Thought Content: Thought content normal. Judgment: Judgment normal. Medications Current Outpatient Medications Medication Sig Dispense Refill ??? albuterol HFA (PROVENTIL;VENTOLIN;PROAIR) 108 (90 Base) MCG/ACT inhaler ??? ALPRAZolam (XANAX) 0.25 MG tablet Take 0.25 mg by mouth 3 times daily as needed for Anxiety ??? azaTHIOprine (IMURAN) 50 MG tablet Take 1 tablet by mouth once daily 30 tablet 2 ??? clomiPHENE (CLOMID) 50 MG tablet Take 1 tablet by mouth once daily Day 5 through Day 10 of menstrual cycle. 3 cycles worth of medication ordered. (Patient not taking: Reported on 05/14/2019) 15 tablet 0 ??? folic acid (FOLVITE) 1 MG tablet Take 1 tablet by mouth once daily (Patient not taking: Reported on 05/23/2019) 30 tablet 2 ??? hydroxychloroquine (PLAQUENIL) 200 MG tablet TAKE ONE AND ONE-HALF TABLET DAILY 45 tablet 2 ??? meloxicam (MOBIC) 15 MG tablet Take 15 mg by mouth once daily ??? omeprazole (PRILOSEC) 20 MG capsule Take 1 capsule by mouth once daily 30 capsule 2 ??? predniSONE (DELTASONE) 10 MG tablet Take 4 tabs daily x3 days (Patient not taking: Reported on 06/20/2019) 12 tablet 0 ??? predniSONE (DELTASONE) 10 MG tablet Take 1 tablet by mouth once daily 30 tablet 2 ??? predniSONE (DELTASONE) 5 MG tablet Take 15 mg by mouth once daily ??? Vit-DSS-Fe Cbn-FA ( MULTIVITAMIN-ULTRA PO) Take 1 tablet by mouth once daily ??? valACYclovir (VALTREX) 1 GM tablet Take 1,000 mg by mouth every 12 hours ??? vitamin D, ergocalciferol, (DRISDOL) 1.25 MG (12002 UT) capsule Take 1 capsule by mouth every 7days 12 capsule 0 Procedures Procedures Lab Interpretation Oxygen Saturation Interpretation The oxygen saturation level is: 100%. The patient was on Room Air for the saturation measurement. Measurement frequency: Spot Check. Oxygen saturation interpretation is Normal. Intervention(s) used: None. No results found for this visit on 08/28/19. No orders to display Progress Notes 11:25 AM Work note provided saying she can go back to work once covid test is confirmed to be negative. I have given the patient instructions regarding her diagnosis, expectations, follow up, and return precautions. I explained to the patient that emergent conditions may arise and to return to the ER for new, worsening, or any persistent conditions. I've explained the importance of following up with her doctor--Huseyin Dangelo MD--(or the referral physician) as instructed. The patient verbalized understanding of the discharge instructions. Diagnosis: Final diagnoses: Screening examination for infectious disease New Medications: Discharge Medication List as of 08/28/2019 11:25 AM I have advised the patient to follow-up with: Huseyin Dangelo MD [address] [place] [address] Call As needed Disposition: Discharged 08/28/2019 5:58 PM ED Course Clinical Impressions as of Aug 27 1757 Screening examination for infectious disease Medical Decision Making I have reviewed the: Previous Chart, Vitals. I have interpreted the following results: Oxygen Saturation. Orders Placed This Encounter ??? SARS-COV-2 (COVID-19) IN HOUSE Follow-up Information Follow-up With Details Why Contact Info Huseyin Dangelo MD Call As needed [id number] [address] User Date/Time Liam Lowery PA-C Rachel Aug 28, 2019 11:20 AM documented in this encounter Plan of Treatment Not on file documented as of this encounter Procedures Procedure Name Priority Date/Time Associated Diagnosis Comments SARS-COV-2 (COVID-19) IN HOUSE STAT 08/28/2019 11:24 AM CDT documented in this encounter Results * SARS-COV-2 (COVID-19) IN HOUSE (08/28/2019 11:24 AM CDT) COVID-19 PCR Not detected Not detected, Invalid 08/28/2019 6:19 PM CDT [facility] Microbiology SPECIMEN FROM NASOPHARYNGEAL STRUCTURE / Unknown 08/28/2019 11:24 AM CDT 08/28/2019 11:23 AM CDT Narrative [facility] - 08/28/2019 6:19 PM CDT This nucleic acid amplification assay performance was validated by [facility]. This test has been [...] the authorization is terminated or revoked sooner. Liam Lowery PA-C LAB - MICR OBIOLOGY ORDERABLES [facility] [address] [place] [phone] documented in this encounter Visit Diagnoses Diagnosis Screening examination for infectious disease Screening examination for unspecified infectious disease documented in this encounter Care Teams Press Writer Relationship Specialty Start Date End Date Huseyin Dangelo MD PCP - General 07/29/19 06/15/20 Sheldon Delgado MD Obstetrics and Gynecology 05/23/19 documented as of this encounter
--- OUTSIDE RECORDS SUMMARY | 2024-02-24 19:38 | XMS_ITS | Encounter Summary ---
Author Organization [facility] Address [address] [place] [address] Care Team Providers Care Delivery Truck Driver Heavy Name Role Phone Sheldon Delgado MD Unavailable [phone] Huseyin Dangelo MD Primary Care Provider [phone] Reason for Visit * Reason Onset Date Comments MEDICATION REFILL 09/06/2019 Encounter Details Date Type Department Care Team (Late st Contact Info) Description 09/06/2019 Refill [facility] - Rheumatology [address] [facility] [address] [place], [place] [id number] Ashlee Magallon MD [address] [facility] [address] [place] [address] MEDICATION REFILL Social History Tobacco Use Types Packs/Day Years [...] on filedocumented in this encounter Care Teams Delivery Truck Driver Heavy Relationship Specialty Start Date End Date Huseyin Dangelo MD PCP - General 07/29/19 06/15/20 Sheldon Delgado MD Obstetrics and Gynecology 05/23/19 documented as of this encounter
--- OUTSIDE RECORDS SUMMARY | 2024-02-24 19:38 | XMS_ITS | Encounter Summary ---
Author Organization [facility] Address [address] [place] [address] Care Team Providers Care Medical Receptionist Medical Assistant Name Role Phone Sheldon Delgado MD Unavailable [phone] Reason for Visit * Reason Onset Date Comments Future Appointment 07/04/2023 Encounter Details Date Type Department Care Team (Late st Contact Info) Description 07/04/2023 Telephone [facility] - ACCOUNT INSTALLER [address] [facility] [address] [place] [address] Ade Knutson APRN-CABLE TESTER [address] [place] [address] Future Appointment Social History Tobacco Use Types Packs/Day Years Used Date Smoking Tobacco: Former Cigarettes Smokeless Tobacco: Never Alcohol Use Standard Drinks/Week Comments No 0 (1 standard drink = 0.6 oz pur e alcohol) Overall Financial Resource Strain (CARDIA) Answe r Date Recorded Difficulty of Paying Living Expenses Not hard at all 01/29/2019 PHQ-2 Answer Date Recorded Patient Health Questionnaire-2 Score 0 05/04/2023 Hunger Vital Sign Answer Date Recorded Worried [...] encounter Miscellaneous Notes * Telephone Encounter - Yovanny Bruno - 07/04/2023 12:50 PM CDT New Patient is asking if she can possibly be seen sooner than scheduled appt. She's not sure if shecan wait another month to be seen. She is currently experiencing yeast infection symptoms (itching,burning, white discharge) and diflucan did not relieve her symptoms documented in this encounter Plan of Treatment Not on file documented as of this encounter Visit Diagnoses Not on filedocumented in this encounter Care Teams Medical Receptionist Medical Assistant Relationship Specialty Start Date End Date Sheldon Delgado MD Obstetrics and Gynecology 05/23/19 documented as of this encounter
--- OUTSIDE RECORDS SUMMARY | 2024-02-24 19:38 | XMS_ITS | Encounter Summary ---
Author Organization [facility] Address [address] [place] [address] Care Team Providers Care Ui Programmer Name Role Phone Sheldon Delgado MD Unavailable [phone] Encounter Details Date Type Department Care Team (Late st Contact Info) Description 05/04/2023 11:56 AM THREADING MACHINE SETTER - 05/04/2023 11:[address] [facility] Hospital Encounter [facility] [address] [place] [address] Chitra Webb, ANNIE-UTILITY PERSON [address] [place] [id number] Discharge Disposition: Home or Self Care Social History Tobacco Use Types Packs/Day Years Used Date Smoking Tobacco: Former Cigarettes Smokeless Tobacco: Never Tobacco Cessation:Counseling Given: Not Answered Alcohol Use Standard Drinks/Week Comments No 0 [...] Sign Reading Time Taken Comments Blood Pressure 123/69 05/04/2023 12:08 PM THREADING MACHINE SETTER Pulse 87 05/04/2023 12:08 PM THREADING MACHINE SETTER Temperature 36.9 ??C (98.5 ??F) 05/04/2023 12:[address] Respiratory Rate 18 05/04/2023 12:08 PM THREADING MACHINE SETTER Oxygen Saturation 100% 05/04/2023 12:08 PM THREADING MACHINE SETTER Inhaled Oxygen Concentration - - Weight 79.8 kg (176 lb) 05/04/2023 12:08 PM THREADING MACHINE SETTER Height - - Body Mass Index 31.18 06/16/2020 12:00 PM CDT documented in this encounter Discharge Instructions * Patient Instructions* Chitra Webb APRN-CNP - 05/04/2023 12:35 PM THREADING MACHINE SETTER .bsyeas ADING MACHINE SETTER documented in this encounter Medications at Time [...] 3 (three) tablets by mouth once daily sertraline (ZOLOFT) 25 MG tablet 06/11/2020 valACYclovir (VALTREX) 1 GM tablet Take 1 (one) tablet by mouth every 12 hours fluconazole (Diflucan) 150 MG tablet Take 1 (one) tablet by mouth every 3 days for 2 doses 2 tablet 05/04/2023 05/08/2023 documented as of this encounter Progress Notes * Chitra Webb APRN-CNP - 05/04/2023 12:19 PM CST [facility] History of Present Illness Patient Identification Carito A Los is a 32 year old female. PCP: No primary care provider on file. Patient information was obtained from patient. Patient's mother is present. History/Exam limitations: none. Patient presented to the Urgent Care ambulatory. Chief Complaint Possible urinary tract infection HPI Carito Madison is a 32 year old female with a has a past medical history of Anemia, Angina at rest, Fibromyalgia, Hypertension, and Lupus ([facility]). who presents with complaints today of possible urinary traction infection, that started 1.5 weeks ago. She states she has had trouble since her c section 2 years ago, with difficulty emptying bladder and with bladder pain. Other symptoms include: urinary urgency, lower abdominal pain/bladder pain. Pt states she saw her OBGYN Mar was prescribed diflucan, and vaginal suppisorty for yeast infection. STD testing at that time was negative. Denies fever, lower back pain, vomiting, hematuria, diarrhea. Patient has tried the diflucan and suppository for yeast infection. States she feels like she mightstill be experiencing some discharge and itchiness Patient denies other complaints including chest pain, shortness of breath, ?? Past Medical History: Diagnosis Date ??? Anemia ??? Angina at rest ??? Fibromyalgia ??? Hypertension ??? Lupus ([facility]) Past Surgical History: Procedure Laterality Date ??? Appendectomy ??? Dilation and Curettage ??? OTHER SURGERY Right 2019 right wrist median nerve repair ??? BREAST RIGHT BIOPSY Right 02/23/2021 BREAST RIGHT FU W CORE BX 02/23/2021 Family History Problem Relation Name Age of Onset ??? Arthritis - Rheumatoid Paternal Grandmother ??? Hypertension Mother ??? Diabetes - Type 2 Mother ??? None Known Father Current Outpatient Medications Medication Sig Dispense Refill ??? ALPRAZolam (XANAX) 0.25 MG tablet Take 0.25 mg by mouth 3 times daily as needed for Anxiety (Patient not taking: Reported on 05/04/2023) ??? fluconazole (Diflucan) 150 MG tablet Take 1 (one) tablet by mouth every 3 days for 2 doses 2 tablet 0 ??? hydroxychloroquine (PLAQUENIL) 200 MG tablet TAKE ONE AND ONE-HALF TABLET DAILY 45 tablet 2 ??? omeprazole (PRILOSEC) 20 MG capsule Take 1 capsule by mouth once daily (Patient not taking: Reported on 05/04/2023) 30 capsule 2 ??? predniSONE (DELTASONE) 5 MG tablet Take 3 (three) tablets by mouth once daily ??? sertraline (ZOLOFT) 25 MG tablet ??? valACYclovir (VALTREX) 1 GM tablet Take 1 (one) tablet by mouth every 12 hours No current facility-administered medications for this encounter. Allergies Allergen Reactions ??? Penicillins Urticaria and Rash ??? Escitalopram Other and Rash Caused seizures Caused seizures Caused seizures Caused seizures Caused seizures Caused seizures ??? Aripiprazole Other ??? Venlafaxine Itching ??? Methylprednisolone Other Syncope Social History Tobacco Use ??? Smoking status: Former Packs/day: 0 Types: Cigarettes ??? Smokeless tobacco: Never Substance Use Topics ??? Alcohol use: No Review of Systems ROS Full 12 point ROS performed. See HPI for pertinent positives and negatives. Physical Exam BP 123/69 Pulse 87 Temp 98.5 ??F (36.9 ??C) (Oral) Resp 18 Wt 79.8 kg (176 lb) LMP 04/09/2023 (Approximate) SpO2 100% No BMI 31.18 kg/m?? No results found. Physical Exam Vitals and nursing note reviewed. Constitutional: General: She is not in acute distress. Appearance: Normal appearance. She is not toxic-appearing. HENT: Head: Normocephalic and atraumatic. Cardiovascular: Rate and Rhythm: Normal rate and regular rhythm. Pulses: Normal pulses. Heart sounds: Normal heart sounds. Pulmonary: Effort: Pulmonary effort is normal. No respiratory distress. Breath sounds: Normal breath sounds. No wheezing. Abdominal: General: Abdomen is flat. Bowel sounds are normal. Palpations: Abdomen is soft. Tenderness: There is no abdominal tenderness. There is no right CVA tenderness or left CVA tenderness. Musculoskeletal: General: Normal range of motion. Skin: General: Skin is warm and dry. Neurological: General: No focal deficit present. Mental Status: She is alert and oriented to person, place, and time. Procedures Procedures Lab/SPO2 Interpretation Hospital Encounter on 05/04/23 URINALYSIS - POCT (IP) URGENT CARE Result Value Ref Range Glucose UA neg Negative Bilirubin UA neg Negative Ketone UA neg Negative Specific [place] UA POCT 1.005 1.000 - 1.030 Blood UA neg Negative pH UA 6.5 5.0 - 8.0 pH units Protein UA neg Negative Urobilinogen UA 0.2 0.2 - 1.0 EU/dL Nitrite UA neg Negative Leukocyte UA neg Negative QC Verified Yes Yes HCG URINE QUALITATIVE - POCT (IP) URGENT CARE Result Value Ref Range HCG Qual Urine Negative Negative QC Verified Yes Yes No results found. Progress Notes Medical Decision Making I have reviewed the: Previous Chart, Nursing Notes, Vitals. I have interpreted the following results: Labs, Oxygen Saturation. -Reviewed UA results, not consistent with an infection at this time. Will send for culture given symptoms. -Recommend a daily probiotic -Recommend see urologist with referral given from IRB COMPLIANCE COORDINATOR provider -Symptoms consistent w/ vaginal yeast infection not cleared. Will treat with PO Fluconazole. If symptoms persist after 3 days you can repeat dose x 1. -Follow up with [facility]B COMPLIANCE COORDINATOR if symptoms fail to improve with this treatment Patient is hemodynamically stable and non-septic appearing.Pt. Is appropriate for discharge home atthis time in the setting of strict return/follow-up precautions to include s/s warranting immediateemergency department evaluation. Assessment ICD-10-CM 1. Bladder pain R39.89 URINALYSIS - POCT (IP) URGENT CARE CULTURE URINE HCG URINE QUALITATIVE - POCT (IP) URGENT CARE 2. Vaginal yeast infection B37.31 Plan Orders Placed This Encounter ??? CULTURE URINE Standing Status: Standing Number of Occurrences: 1 Order Specific Question: Release to patient Answer: Immediate ??? URINALYSIS - POCT (IP) URGENT CARE Standing Status: Standing Number of Occurrences: 1 Order Specific Question: Release to patient Answer: Immediate ??? HCG URINE QUALITATIVE - POCT (IP) URGENT CARE Standing Status: Standing Number of Occurrences: 1 Order Specific Question: Release to patient Answer: Immediate ??? fluconazole (Diflucan) 150 MG tablet Sig: Take 1 (one) tablet by mouth every 3 days for 2 doses Dispense: 2 tablet Refill: 0 Follow up with No primary care provider on file. in 5days if symptoms persist, sooner if symptoms worsen. AVS reviewed with patient. The Patient indicates understanding of these issues and agrees with the plan. Patient discharged to Home. Patient seen and evaluated by MELINDA Stringer. I agree with this treatment and plan of care. ADING MACHINE SETTER * Marie Jordan RN - 05/04/2023 12:07 PM CST Presents here with c/o urinary urgency and lower abdominal tenderness. Onset 1.5 weeks ago Pt states she saw her OBGYN Mar was prescribed diflucan, and vaginal suppository for a yeast infection. Denies fever, lower back pain. Pt thinks she has bladder infection. ADING MACHINE SETTER documented in this encounter Miscellaneous Notes * Addendum Note - Rroo Shafer CCS - 05/04/2023 11:59 PM CSTEncounter addended by: Roro Shafer CCS on: 05/07/2023 10:49 AM Actions taken: Charge Capture section accepted * Clinical References AVS - Chitra Webb APRN-CNP - 05/04/2023 12:35 PM CST [id number] Vaginal Infection: Yeast (Candidiasis) Yeast infection occurs when yeast in the vagina increase and attacks the vaginal tissues. Yeast is a type of fungus. These infections are often caused by a type of yeast called Patti albicans. Other species of yeast can also cause infections. Factors that may make infection more likely include recent antibiotic use, douching, or increased sex. Yeast infections are more common in women who have diabetes, or are obese or , or have a weak immune system. Symptoms of yeast infection ?? Clumpy or thin, white discharge, which may look like cottage cheese ?? No odor or minimal odor ?? Severe vaginal itching or burning ?? Burning with urination ?? Swelling, redness of vulva ?? Pain during sex Treating yeast infection Yeast infection is treated with a vaginal antifungal cream. In some cases, antifungal pills are prescribed instead. During treatment: ?? Finish all of your medicine, even if your symptoms go away. ?? Apply the cream before going to bed. Lie flat after applying so that it doesn't drip out. ?? Don't douche or use tampons. ?? Don't rely on a diaphragm or condoms, since the cream may weaken them. ?? Don't have intercourse if advised not to by your healthcare provider. Should I treat a yeast infection myself? Discuss with your healthcare provider whether you should use [id number] medicines to treat a yeast infection. Self-treatment may depend on whether: ?? You've had a yeast infection in the past. ?? You're at risk for sexually transmitted infections (STIs). Call your healthcare provider if symptoms don't go away or come back after treatment. Last Reviewed Date: 2021 ?? 2128-1283 [employer]. All rights reserved. This information is not intended as a substitute for professional medical care. Always follow your healthcare professional's instructions. ADING MACHINE SETTER documented in this encounter Plan of Treatment Not on file documented as of this encounter Procedures Procedure Name Priority Date/Time Associated Diagnosis Comments URINALYSIS - POCT (IP) URGENT CARE Routine 05/04/2023 12:15 PM THREADING MACHINE SETTER Bladder pain HCG URINE QUALITATIVE - POCT (IP) URGENT CARE Routine 05/04/2023 12:13 PM THREADING MACHINE SETTER Bladder pain documented in this encounter Results * URINALYSIS - POCT (IP) URGENT CARE (05/04/2023 12:15 PM THREADING MACHINE SETTER) Glucose UA neg Negative [facility] Bilirubin UA neg Negative [facility] Ketone UA neg Negative [facility] Specific [place] UA POCT 1.005 1.000 - 1.030 [facility] Blood UA neg Negative [facility] pH UA 6.5 5.0 - 8.0 pH units [facility] Protein UA neg Negative [facility] Urobilinogen UA 0.2 0.2 - 1.0 EU/dL [facility] Nitrite UA neg Negative [facility] Leukocyte UA neg Negative [facility] QC Verified Yes Yes [facility] Urine URINE / Unknown 05/04/2023 1 2:15 PM THREADING MACHINE SETTER Chitra Webb APRN-UTILITY PERSON LAB - POINT OF CARE ORDERABLES [facility] [address] [phone] * HCG URINE QUALITATIVE - POCT (IP) URGENT CARE (05/04/2023 12:13 PM THREADING MACHINE SETTER) HCG Qual Urine Negative Negative [facility] QC Verified Yes Yes [facility] Urine URINE / Unknown 05/04/2023 1 2:13 PM THREADING MACHINE SETTER Chitra Webb APRN-UTILITY PERSON LAB - POINT OF CARE ORDERABLES Performing Organization Address City/[facility] Co de Phone Number [facility] [address] [phone] documented in this encounter Visit Diagnoses Diagnosis Bladder pain- Primary Other symptoms involving urinary system Vaginal yeast infection Candidiasis of vulva and vagina documented in this encounter Care Teams Ui Programmer Relationship Specialty Start Date End Date Sheldon Delgado MD Obstetrics and Gynecology 05/23/19 documented as of this encounter
--- OUTSIDE RECORDS SUMMARY | 2024-02-24 19:38 | XMS_ITS | Encounter Summary ---
Author Organization [facility] Address [address] [place] [place] [address] Care Team Providers Care Global Position System Technician Name Role Phone Sheldon Delgado MD Unavailable [phone] Encounter Details Date Type Department Care Team (Latest Contact Info) Description 08/02/2023 Travel Social History Tobacco Use Types Packs/Day [...] on filedocumented in this encounter Care Teams Global Position System Technician Relationship Specialty Start Date End Date Sheldon Delgado MD Obstetrics and Gynecology 05/23/19 documented as of this encounter
--- OUTSIDE RECORDS SUMMARY | 2024-02-24 19:38 | XMS_ITS | Patient Health Summary ---
Author Organization [facility] Address [address] [place] [address] Care Team Providers Care Grants Specialist Name Role Phone Sheldon Delgado MD Unavailable [phone] Note from [facility],non-owned Affiliates and Associated Physician Practices is amultiple site organization consisting of ambulatory clinics and hospital sitesin [place], [place], [place] and [place]. This disclosure is being madepursuant to the Care Everywhere program and may not contain all information available regarding this patient. Last updated 17.[facility] Allergies * Aripiprazole(Other) -Low Criticality * Escitalopram(Other,Rash) -Medium Criticality * Methylprednisolone(Other) * Penicillins(Urticaria,Rash) -High Criticality * Venlafaxine(Itching) -Low Criticality Medications * Be aware that medications may not be up to date on this document. Alwaysverify current medications with the patient. * ALPRAZolam (XANAX) 0.25 MG tablet Take 0.25 mg by mouth 3 times daily as needed for Anxiety * valACYclovir (VALTREX) 1 GM tablet Take 1 (one) tablet by mouth every 12 hours * omeprazole (PRILOSEC) 20 MG capsule(Started 06/21/2019) Take 1 capsule by mouth once daily 2 refills by 06/20/2020 * predniSONE (DELTASONE) 5 MG tablet Take 3 (three) tablets by mouth once daily * hydroxychloroquine (PLAQUENIL) 200 MG tablet(Started 06/21/2019) TAKE ONE AND ONE-HALF TABLET DAILY 2 refills by 06/20/2020 * sertraline (ZOLOFT) 25 MG tablet(Started 06/11/2020) Active Problems Problem Noted Date Diagnosed Date Systemic lupus erythematosus 01/29/2019 Herpes genitalis 01/29/2019 Social History Tobacco Use Types Packs/Day Years [...] on file Sexual Orientation Not on file Last Filed Vital Signs Vital Sign Reading Time Taken Comments Blood Pressure 123/69 05/04/2023 12:08 PM DEVELOPMENT ASSISTANT Pulse 87 05/04/2023 12:08 PM DEVELOPMENT ASSISTANT Temperature 36.9 ??C (98.5 ??F) 05/04/2023 12:[address] Respiratory Rate 18 05/04/2023 12:08 PM DEVELOPMENT ASSISTANT Oxygen Saturation 100% 05/04/2023 12:08 PM DEVELOPMENT ASSISTANT Inhaled Oxygen Concentration - - Weight 79.8 kg (176 lb) 05/04/2023 12:08 PM DEVELOPMENT ASSISTANT Height 160 cm (5' 3 ) 06/16/2020 12:00 PM CDT Body Mass Index 31.18 06/16/2020 12:00 PM CDT Procedures * URINALYSIS - POCT (IP) URGENT CARE(Performed 05/04/2023) Performed for Bladder pain * HCG URINE QUALITATIVE - POCT (IP) URGENT CARE(Performed 05/04/2023) Performed for Bladder pain * URINALYSIS REFLEX MICROSCOPIC REFLEX CULTURE(Performed 12/06/2022) * DERMATOPATHOLOGY(Performed 08/30/2022) * SARS-COV-2 (COVID-19) IN HOUSE(Performed 09/04/2019) * SARS-COV-2 (COVID-19) IN HOUSE(Performed 09/03/2019) * SARS-COV-2 (COVID-19) IN HOUSE(Performed 08/28/2019) * CT ANGIO BRAIN AND NECK(Performed 08/21/2019) Performed for Seizure-like activity (HCC) * CT HEAD WO CONTRAST(Performed 08/21/2019) Performed for Seizure-like activity (HCC) * SARS-COV-2 (COVID-19) IN HOUSE(Performed 08/21/2019) * EKG 12-LEAD(Performed 08/21/2019) Performed for Seizure-like activity (HCC) * URINE MICROSCOPIC ONLY REFLEX TO CULTURE(Performed 08/21/2019) * URINALYSIS REFLEX MICROSCOPIC REFLEX CULTURE(Performed 08/21/2019) * HCG URINE QUALITATIVE(Performed 08/21/2019) * URINE DRUG SCREEN IMMUNOASSAY(Performed 08/21/2019) * PROLACTIN(Performed 08/21/2019) * LACTIC ACID BLOOD(Performed 08/21/2019) * ALCOHOL ETHYL BLOOD(Performed 08/21/2019) * COMPREHENSIVE METABOLIC PANEL(Performed 08/21/2019) * CBC W AUTO DIFFERENTIAL(Performed 08/21/2019) * CULTURE URINE(Performed 08/21/2019) * SARS-COV-2 (COVID-19) IN HOUSE(Performed 08/10/2019) * LAB RESULTS ORDER(Performed 06/18/2019) * URINALYSIS W/MICROSCOPIC REFLEX TO CULTURE(Performed 06/18/2019) Performed for Encounter for long-term (current) use of medications, High risk medications (not anticoagulants) long-term use, Systemic lupus erythematosus, unspecified SLE type, unspecified organ involvement status (HCC) * COMPLEMENT C3 C4 PANEL(Performed 06/18/2019) Performed for Encounter for long-term (current) use of medications, High risk medications (not anticoagulants) long-term use, Systemic lupus erythematosus, unspecified SLE type, unspecified organ involvement status (HCC) * C-REACTIVE PROTEIN(Performed 06/18/2019) Performed for Encounter for long-term (current) use of medications, High risk medications (not anticoagulants) long-term use, Systemic lupus erythematosus, unspecified SLE type, unspecified organ involvement status (HCC) * ERYTHROCYTE SEDIMENTATION RATE(Performed 06/18/2019) Performed for Encounter for long-term (current) use of medications, High risk medications (not anticoagulants) long-term use, Systemic lupus erythematosus, unspecified SLE type, unspecified organ involvement status (HCC) * COMPREHENSIVE METABOLIC PANEL(Performed 06/18/2019) Performed for Encounter for long-term (current) use of medications, High risk medications (not anticoagulants) long-term use, Systemic lupus erythematosus, unspecified SLE type, unspecified organ involvement status (HCC) * CBC W AUTO DIFFERENTIAL(Performed 06/18/2019) Performed for Encounter for long-term (current) use of medications, High risk medications (not anticoagulants) long-term use, Systemic lupus erythematosus, unspecified SLE type, unspecified organ involvement status (HCC) * HCG BETA BLOOD QUANTITATIVE(Performed 05/22/2019) Performed for Less than 8 weeks gestation of (HCC) * URINALYSIS MICROSCOPIC ONLY REFLEXED(Performed 05/22/2019) * URINALYSIS REFLEX TO MICROSCOPIC NO CULTURE(Performed 05/22/2019) Performed for High risk medications (not anticoagulants) long-term use, Systemic lupus erythematosus, unspecified SLE type, unspecified organ involvement status (HCC) * DNA ANTIBODY DOUBLE STRANDED(Performed 05/22/2019) Performed for High risk medications (not anticoagulants) long-term use, Systemic lupus erythematosus, unspecified SLE type, unspecified organ involvement status (HCC) * COMPLEMENT C3 C4 PANEL(Performed 05/22/2019) Performed for High risk medications (not anticoagulants) long-term use, Systemic lupus erythematosus, unspecified SLE type, unspecified organ involvement status (HCC) * C-REACTIVE PROTEIN(Performed 05/22/2019) Performed for High risk medications (not anticoagulants) long-term use, Systemic lupus erythematosus, unspecified SLE type, unspecified organ involvement status (HCC) * ERYTHROCYTE SEDIMENTATION RATE(Performed 05/22/2019) Performed for High risk medications (not anticoagulants) long-term use, Systemic lupus erythematosus, unspecified SLE type, unspecified organ involvement status (HCC) * COMPREHENSIVE METABOLIC PANEL(Performed 05/22/2019) Performed for High risk medications (not anticoagulants) long-term use, Systemic lupus erythematosus, unspecified SLE type, unspecified organ involvement status (HCC) * CBC W AUTO DIFFERENTIAL(Performed 05/22/2019) Performed for High risk medications (not anticoagulants) long-term use, Systemic lupus erythematosus, unspecified SLE type, unspecified organ involvement status (HCC) * LAB RESULTS ORDER(Performed 03/18/2019) * XR HIPS BILATERAL 2VW(Performed 03/10/2019) Performed for 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, 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 * EMG WITH NERVE CONDUCTION STUDY(Performed 03/10/2019) Performed for Muscle weakness (generalized), Numbness and tingling of left upper and lower extremity, 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 * ERYTHROCYTE SEDIMENTATION RATE(Performed 03/04/2019) Performed for Systemic lupus erythematosus, unspecified SLE type, unspecified organ involvement status ([facility]), Encounter for long-term (current) use of medications * C-REACTIVE PROTEIN(Performed 03/04/2019) Performed for Systemic lupus erythematosus, unspecified SLE type, unspecified organ involvement status (HCC), Encounter for long-term (current) use of medications * COMPREHENSIVE METABOLIC PANEL(Performed 03/04/2019) Performed for Systemic lupus erythematosus, unspecified SLE type, unspecified organ involvement status (HCC), Encounter for long-term (current) use of medications * COMPLEMENT C3 C4 PANEL(Performed 03/04/2019) Performed for Systemic lupus erythematosus, unspecified SLE type, unspecified organ involvement status ([facility]), Encounter for long-term (current) use of medications * CK BLOOD(Performed 03/04/2019) Performed for Systemic lupus erythematosus, unspecified SLE type, unspecified organ involvement status ([facility]), Encounter for long-term (current) use of medications * CBC W AUTO DIFFERENTIAL(Performed 03/04/2019) Performed for Systemic lupus erythematosus, unspecified SLE type, unspecified organ involvement status ([facility]), Encounter for long-term (current) use of medications * URINALYSIS MICROSCOPIC ONLY REFLEXED(Performed 02/25/2019) Performed for Proteinuria, unspecified type, Dysuria, Encounter for long-term (current) use of medications * URINALYSIS REFLEX MICROSCOPIC REFLEX CULTURE(Performed 02/25/2019) Performed for Proteinuria, unspecified type, Dysuria, Encounter for long-term (current) use of medications * FSH + LH PANEL(Performed 01/29/2019) Performed for Other forms of systemic lupus erythematosus, unspecified organ involvement status ([facility]), Encounter for long-term (current) use of medications, High risk medications (not anticoagulants)long-term use, Irregular menstruation * CARDIOLIPIN ANTIBODY IGG/IGM PANEL(Performed 01/29/2019) Performed for Other forms of systemic lupus erythematosus, unspecified organ involvement status ([facility]) * TSH REFLEX FREE T4(Performed 01/29/2019) Performed for Irregular periods * TESTOSTERONE FREE+TOTAL PANEL(Performed 01/29/2019) Performed for Irregular periods * PROLACTIN(Performed 01/29/2019) Performed for Irregular periods * HYDROXYPROGESTERONE 17- QUANT(Performed 01/29/2019) Performed for Irregular periods * FSH(Performed 01/29/2019) Performed for Irregular periods * DHEA SULFATE(Performed 01/29/2019) Performed for Irregular periods * PAP IG RFLX HPV ASCU(Performed 01/29/2019) Performed for Encounter for gynecological examination with abnormal finding * URINALYSIS MICROSCOPIC ONLY REFLEXED(Performed 01/15/2019) Performed for Other forms of systemic lupus erythematosus, unspecified organ involvement status (HCC), Encounter for long-term (current) use of medications, Proteinuria, unspecified type, Dysuria, High risk medications (not anticoagulants) long-term use * PROTEIN CREATININE RATIO URINE RANDOM PNL(Performed 01/15/2019) Performed for Other forms of systemic lupus erythematosus, unspecified organ involvement status (HCC), Encounter for long-term (current) use of medications, Proteinuria, unspecified type, Dysuria, High risk medications (not anticoagulants) long-term use * URINALYSIS W/MICROSCOPIC REFLEX TO CULTURE(Performed 01/15/2019) Performed for Other forms of systemic lupus erythematosus, unspecified organ involvement status (HCC), Encounter for long-term (current) use of medications, Proteinuria, unspecified type, Dysuria, High risk medications (not anticoagulants) long-term use * COMPLEMENT C3 C4 PANEL(Performed 01/15/2019) Performed for Other forms of systemic lupus erythematosus, unspecified organ involvement status (HCC), Encounter for long-term (current) use of medications, Proteinuria, unspecified type, Dysuria, High risk medications (not anticoagulants) long-term use * DNA ANTIBODY DOUBLE STRANDED(Performed 01/15/2019) Performed for Other forms of systemic lupus erythematosus, unspecified organ involvement status (HCC), Encounter for long-term (current) use of medications, Proteinuria, unspecified type, Dysuria, High risk medications (not anticoagulants) long-term use * C-REACTIVE PROTEIN(Performed 01/15/2019) Performed for Other forms of systemic lupus erythematosus, unspecified organ involvement status (HCC), Encounter for long-term (current) use of medications, Proteinuria, unspecified type, Dysuria, High risk medications (not anticoagulants) long-term use * ERYTHROCYTE SEDIMENTATION RATE(Performed 01/15/2019) Performed for Other forms of systemic lupus erythematosus, unspecified organ involvement status (HCC), Encounter for long-term (current) use of medications, Proteinuria, unspecified type, Dysuria, High risk medications (not anticoagulants) long-term use * COMPREHENSIVE METABOLIC PANEL(Performed 01/15/2019) Performed for Other forms of systemic lupus erythematosus, unspecified organ involvement status (HCC), Encounter for long-term (current) use of medications, Proteinuria, unspecified type, Dysuria, High risk medications (not anticoagulants) long-term use * CBC W AUTO DIFFERENTIAL(Performed 01/15/2019) Performed for Other forms of systemic lupus erythematosus, unspecified organ involvement status (HCC), Encounter for long-term (current) use of medications, Proteinuria, unspecified type, Dysuria, High risk medications (not anticoagulants) long-term use * ECHOCARDIOGRAM 2D WITH DOPPLER(Performed 10/30/2018) Performed for SOB (shortness of breath), Other forms of systemic lupus erythematosus, unspecified organ involvement status ([facility]) * URINALYSIS MICROSCOPIC ONLY REFLEXED(Performed 10/24/2018) Performed for Proteinuria, unspecified type, Other forms of systemic lupus erythematosus, unspecified organ involvement status ([facility]) * PROTEIN CREATININE RATIO URINE RANDOM PNL(Performed 10/24/2018) Performed for Proteinuria, unspecified type, Other forms of systemic lupus erythematosus, unspecified organ involvement status ([facility]) * URINALYSIS REFLEX MICROSCOPIC REFLEX CULTURE(Performed 10/24/2018) Performed for Proteinuria, unspecified type, Other forms of systemic lupus erythematosus, unspecified organ involvement status (HCC) * PROTEIN CREATININE RATIO URINE RANDOM PNL(Performed 10/14/2018) Performed for Other forms of systemic lupus erythematosus, unspecified organ involvement status (HCC) * XR KNEE BILAT 3VW(Performed 10/08/2018) Performed for Pain in both knees, unspecified chronicity * XR HIPS BILATERAL 2VW(Performed 10/08/2018) Performed for Polyarthralgia * XR CERVICAL SPINE 6VW OR MORE(Performed 10/08/2018) Performed for Polyarthralgia * JOSEMANUEL STAINING PATTERNS REFLEXED(Performed 10/08/2018) Performed for Other forms of systemic lupus erythematosus, unspecified organ involvement status ([facility]), Polyarthralgia, Malaise and fatigue * THIOPURINE METHYLTRANSFERASE(Performed 10/08/2018) Performed for Other forms of systemic lupus erythematosus, unspecified organ involvement status (HCC), Polyarthralgia, Malaise and fatigue * COMPLEMENT C3 C4 PANEL(Performed 10/08/2018) Performed for Other forms of systemic lupus erythematosus, unspecified organ involvement status (HCC), Polyarthralgia, Malaise and fatigue * LUPUS ANTICOAGULANT PANEL W RFLX(Performed 10/08/2018) Performed for Other forms of systemic lupus erythematosus, unspecified organ involvement status (HCC), Polyarthralgia, Malaise and fatigue * CARDIOLIPIN ANTIBODY IGG/IGM PANEL(Performed 10/08/2018) Performed for Other forms of systemic lupus erythematosus, unspecified organ involvement status (HCC), Polyarthralgia, Malaise and fatigue * BETA-2 GLYCOPROTEIN 1 ANTIBODY IGG/IGM PANEL(Performed 10/08/2018) Performed for Other forms of systemic lupus erythematosus, unspecified organ involvement status (HCC), Polyarthralgia, Malaise and fatigue * BARAK COMPREHENSIVE PLUS PROFILE(Performed 10/08/2018) Performed for Other forms of systemic lupus erythematosus, unspecified organ involvement status (HCC), Polyarthralgia, Malaise and fatigue * BARAK BLOOD SCREEN W/REFLEX TITER(Performed 10/08/2018) Performed for Other forms of systemic lupus erythematosus, unspecified organ involvement status (HCC), Polyarthralgia, Malaise and fatigue * HEPATITIS B SURFACE ANTIGEN CONFIRM RFLXED(Performed 10/08/2018) Performed for Other forms of systemic lupus erythematosus, unspecified organ involvement status (HCC), Polyarthralgia, Malaise and fatigue * URINALYSIS MICROSCOPIC ONLY REFLEXED(Performed 10/08/2018) Performed for Other forms of systemic lupus erythematosus, unspecified organ involvement status (HCC), Polyarthralgia, Malaise and fatigue * LDH BLOOD(Performed 10/08/2018) Performed for Other forms of systemic lupus erythematosus, unspecified organ involvement status (HCC), Polyarthralgia, Malaise and fatigue * ALDOLASE(Performed 10/08/2018) Performed for Other forms of systemic lupus erythematosus, unspecified organ involvement status (HCC), Polyarthralgia, Malaise and fatigue * CK BLOOD(Performed 10/08/2018) Performed for Other forms of systemic lupus erythematosus, unspecified organ involvement status (HCC), Polyarthralgia, Malaise and fatigue * HEPATITIS PANEL(Performed 10/08/2018) Performed for Other forms of systemic lupus erythematosus, unspecified organ involvement status (HCC), Polyarthralgia, Malaise and fatigue * HEPATITIS C ANTIBODY(Performed 10/08/2018) Performed for Other forms of systemic lupus erythematosus, unspecified organ involvement status (HCC), Polyarthralgia, Malaise and fatigue * QUANTIFERON TB-GOLD(Performed 10/08/2018) Performed for Other forms of systemic lupus erythematosus, unspecified organ involvement status (HCC), Polyarthralgia, Malaise and fatigue * T4 FREE(Performed 10/08/2018) Performed for Other forms of systemic lupus erythematosus, unspecified organ involvement status (HCC), Polyarthralgia, Malaise and fatigue * TSH(Performed 10/08/2018) Performed for Other forms of systemic lupus erythematosus, unspecified organ involvement status (HCC), Polyarthralgia, Malaise and fatigue * URINALYSIS REFLEX MICROSCOPIC REFLEX CULTURE(Performed 10/08/2018) Performed for Other forms of systemic lupus erythematosus, unspecified organ involvement status (HCC), Polyarthralgia, Malaise and fatigue * VITAMIN D 25-HYDROXY(Performed 10/08/2018) Performed for Other forms of systemic lupus erythematosus, unspecified organ involvement status (HCC), Polyarthralgia, Malaise and fatigue * RHEUMATOID FACTOR BLOOD QUANTITATIVE(Performed 10/08/2018) Performed for Other forms of systemic lupus erythematosus, unspecified organ involvement status (HCC), Polyarthralgia, Malaise and fatigue * ERYTHROCYTE SEDIMENTATION RATE(Performed 10/08/2018) Performed for Other forms of systemic lupus erythematosus, unspecified organ involvement status (HCC), Polyarthralgia, Malaise and fatigue * CYCLIC CITRUL PEPTIDE ANTIBODY IGG/IGA (CCP)(Performed 10/08/2018) Performed for Other forms of systemic lupus erythematosus, unspecified organ involvement status (HCC), Polyarthralgia, Malaise and fatigue * C-REACTIVE PROTEIN(Performed 10/08/2018) Performed for Other forms of systemic lupus erythematosus, unspecified organ involvement status (HCC), Polyarthralgia, Malaise and fatigue * COMPREHENSIVE METABOLIC PANEL(Performed 10/08/2018) Performed for Other forms of systemic lupus erythematosus, unspecified organ involvement status (HCC), Polyarthralgia, Malaise and fatigue * CARDIAC EKG ORDER(Performed 10/02/2018) * VAS BILATERAL VENOUS DUPLEX LE(Performed 10/02/2018) Performed for Pain in both lower legs * CT ANGIO CHEST PULM EMBOLISM(Performed 10/02/2018) Performed for SOB (shortness of breath) * URINALYSIS REFLEX MICROSCOPIC REFLEX CULTURE(Performed 10/01/2018) * D-DIMER(Performed 10/01/2018) * XR CHEST 2VW(Performed 10/01/2018) Performed for SOB (shortness of breath) * TSH REFLEX FREE T4(Performed 10/01/2018) * TROPONIN I(Performed 10/01/2018) * C-REACTIVE PROTEIN(Performed 10/01/2018) * ERYTHROCYTE SEDIMENTATION RATE(Performed 10/01/2018) * COMPREHENSIVE METABOLIC PANEL(Performed 10/01/2018) * CBC W AUTO DIFFERENTIAL(Performed 10/01/2018) * EKG 12-LEAD(Performed 10/01/2018) Performed for SOB (shortness of breath) * CK BLOOD(Performed 09/25/2018) * MAGNESIUM BLOOD(Performed 09/25/2018) * ERYTHROCYTE SEDIMENTATION RATE(Performed 09/25/2018) * C-REACTIVE PROTEIN(Performed 09/25/2018) * COMPREHENSIVE METABOLIC PANEL(Performed 09/25/2018) * CBC W AUTO DIFFERENTIAL(Performed 09/25/2018) * HIV-1 HIV-2 ANTIGEN/ANTIBODY(Performed 09/25/2018) * CK BLOOD(Performed 08/22/2018) * C-REACTIVE PROTEIN(Performed 08/22/2018) * ERYTHROCYTE SEDIMENTATION RATE(Performed 08/22/2018) * COMPREHENSIVE METABOLIC PANEL(Performed 08/22/2018) * CBC W AUTO DIFFERENTIAL(Performed 08/22/2018) * CBC W AUTO DIFFERENTIAL(Performed 07/05/2018) * HCG URINE QUALITATIVE - POCT (IP) INTERFACED(Performed 07/05/2018) * URINALYSIS REFLEX MICROSCOPIC REFLEX CULTURE(Performed 07/05/2018) * CK BLOOD(Performed 07/05/2018) * COMPREHENSIVE METABOLIC PANEL(Performed 07/05/2018) * HCG URINE QUAL POCT NOTIFICATION(Performed 07/05/2018) * LAB RESULTS ORDER(Performed 03/26/2018) * HEPATIC FUNCTION PANEL(Performed 09/19/2017) * SLIDE SCAN HEMATOLOGY(Performed 09/19/2017) * HCG BETA BLOOD QUANTITATIVE(Performed 09/19/2017) * CBC W AUTO DIFFERENTIAL(Performed 09/19/2017) * BASIC METABOLIC PANEL (CALCIUM TOTAL)(Performed 09/19/2017) * US OB LESS THAN 14 WKS W TRANSVAG(Performed 09/12/2017) Performed for Uterine bleeding * US OB LESS 14 WKS W TRANSV W DOPP(Performed 08/22/2017) Performed for Pelvic pain in female * URINE MICROSCOPIC ONLY REFLEX TO CULTURE(Performed 08/22/2017) * URINALYSIS REFLEX MICROSCOPIC REFLEX CULTURE(Performed 08/22/2017) * HCG BETA BLOOD QUANTITATIVE(Performed 08/22/2017) * CULTURE URINE(Performed 08/22/2017) * HCG URINE QUALITATIVE - POCT (IP) INTERFACED(Performed 08/07/2017) * HCG URINE QUAL POCT NOTIFICATION(Performed 08/07/2017) * URINALYSIS REFLEX MICROSCOPIC REFLEX CULTURE(Performed 08/07/2017) Results * URINALYSIS - POCT (IP) URGENT CARE (05/04/2023 12:15 PM DEVELOPMENT ASSISTANT) Glucose UA neg Negative [facility] Bilirubin UA neg Negative [facility] Ketone UA neg Negative [facility] Specific [place] UA POCT 1.005 1.000 - 1.030 [place] [place] [facility] Blood UA neg Negative [facility] pH UA 6.5 5.0 - 8.0 pH units [facility] Protein UA neg Negative [facility] Urobilinogen UA 0.2 0.2 - 1.0 EU/dL [facility] Nitrite UA neg Negative [facility] Leukocyte UA neg Negative [facility] QC Verified Yes Yes [place] [place] Urine URINE / Unknown 05/04/2023 1 2:15 PM DEVELOPMENT ASSISTANT Chitra Webb APRN-BUTTON MACHINE OPERATOR LAB - POINT OF CARE ORDERABLES [place] [place] [facility] [address] [place] [address], [facility] [phone] * HCG URINE QUALITATIVE - POCT (IP) URGENT CARE (05/04/2023 12:13 PM DEVELOPMENT ASSISTANT) HCG Qual Urine Negative Negative [facility] QC Verified Yes Yes [place] [place] Urine URINE / Unknown 05/04/2023 1 2:13 PM DEVELOPMENT ASSISTANT Chitra Webb WAREHOUSE RECORD CLERK-BUTTON MACHINE OPERATOR LAB - POINT OF CARE ORDERABLES [place] [place] [facility] [address] [facility] [phone] * (ABNORMAL) URINALYSIS REFLEX MICROSCOPIC REFLEX CULTURE (12/06/2022 1:28 PM CDT) Only the most recent of9 resultswithin the time period is included. Color UA Yellow Straw, Yellow 12/06/2022 1:38 PM CDT [facility] Clarity UA Slt Cloudy(A) Clear 12/06/2022 1:38 PM CDT [facility] Glucose UA Negative Negative 12/06/2022 1:38 PM CDT [facility] Bilirubin UA Negative Negative 12/06/2022 1:38 PM CDT [facility] Ketone UA Negative Negative 12/06/2022 1:38 PM CDT [facility] Specific [place] UA 1.010 1.005 - 1.030 12/06/2022 1:38 PM CDT [facility] Blood UA Negative Negative 12/06/2022 1:38 PM CDT [facility] pH UA 7.0 5.0 - 8.0 pH 12/06/2022 1:38 PM CDT [facility] Protein UA Negative Negative 12/06/2022 1:38 PM CDT [facility] Urobilinogen UA Negative Negative mg/dL 12/06/2022 1:38 PM CDT [facility] Nitrite UA Negative Negative 12/06/2022 1:38 PM CDT [facility] Leukocyte UA Negative Negative 12/06/2022 1:38 PM CDT [facility] Urine Microscopy Urine microscopy not indicated 12/06/2022 1:38 PM CDT [facility] Reflex Status Culture not indicated 12/06/2022 1:38 PM CDT [facility] Urine URINE SPECIMEN OBTAINED BY CLEAN CATCH PROCEDURE / Unknown Collection / Unknown 12/06/2022 1:28 PM CDT 12/06/2022 1:33 PM CDT Narrative [facility] - 12/06/2022 1:38 PM CDT Kilo Loera PA-C LAB - URINALYSIS OR DERABLES [facility] [address] [place] [address] * DERMATOPATHOLOGY (08/30/2022 12:00 AM CDT) Case Report Dermatopathology Report ? Case: [id number] ? Authorizing Provider: ??Huseyin Edgar DO ? Collected: ? 08/30/2022 12:00 AM ? Ordering Location: ? [facility] ? Received: ?08/31/2022 09:38 AM ? Pathologist: ? Lisette Perez MD ? Specimens: ?? A) - Skin, back ? B) - Skin, nose ? 3 1:44 PM [facility] Addendum 1 Regarding specimen A, MART-1/MelanA immunostain highlights lesional cells. Regarding specimen B, Ki67 immunostain is positive in scattered lower-level intraepidermal keratinocytes. 3 1:44 PM [facility]ORY Addendum electronically signed by Lisette Perez MD on 09/25/2022 at 1:44 PM Final Diagnosis Specimen A. 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 SKIN, nose: ACTINIC KERATOSIS, SUPERFICIAL FRAGMENTS OF; EXTENDING TO THE BASE OF THE SPECIMEN (L57.0) EPIDERMAL NECROSIS SUGGESTIVE OF EXCORIATION (L98.499) (see microscopic description and comment) 3 1:44 PM [facility]ATORY Clinical History A: Pigmented Lesion B: Poss BCC vs. Cyst 3 1:44 PM [facility]ORY Gross Description Specimen A: Received is one formalin filled container labeled with the patient's name and designated back. The specimen consists of a shave biopsy measuring 4x4x2 mm. Jar 0. Specimen B: Received is one formalin filled container labeled with the patient's name and designated nose. The specimen consists of a curettage and desiccation biopsy measuring 4x2x1, 2x1x1, 1x1x1 mm. Jar 0+. 3 1:44 PM [facility]ORY Microscopic Description Specimen A. SKIN, back: The specimen is focally tangentially sectioned. There are rare nests of cytologically bland melanocytes within the dermis, highlighted by MART-1/MelanA immunostain. There is an ulcer, beneath which there are vascular proliferation, highlighted by ERG, fibroblasts, and an edematous stroma. There is epidermal hyperplasia beneath which there are vascular proliferation, fibroblasts, and an edematous stroma. Sections show abundant melanin within melanophages around the superficial vascular plexus. Additional deeper sections were obtained and reviewed. COMMENT: If this specimen is sampled from a larger lesion, these findings may not be asset protection representative of the entire lesion. Clinicopathologic correlation is recommended. Specimen B. SKIN, nose: The specimen is fragmented. There is focal parakeratosis. The lower half of the epidermis shows disorderly maturation of keratinocytes with nuclear pleomorphism. This process extends to the base of the specimen. The epidermis is focally necrotic and covered with a scale-crust. There is fibrin at the base. Additional deeper sections were obtained and reviewed. COMMENT: A squamous cell carcinoma cannot be ruled out. 3 1:44 PM CDT DER[facility]Y LABORATORY Disclaimer An external and internal positive and negative controls are appropriate for the histochemical, immunohistochemical and immunofluorescence stain(s) in this case (if any), except where stated explicitly. The performance characteristics of the stain(s) cited in this report were developed and its performance characteristic determined by the Dermatopathology Laboratory at [facility], directed by Dr. Rc Berry. These tests need not be, and therefore are not, approved by the [place] Food and Drug Administration. The tests are used for clinical purposes. Billing Codes Specimen Charges Stain Charges 12449 19909 1 1 77939 [id number] 82797 1 1 1 3 1:44 PM CDT DER[facility]Y LABORATORY Embedded Images 3 1:44 PM CDT [facility] Pathology/Cytology TISSUE SPECIMEN FROM SKIN / Unknown 08/30/2022 08/31/2022 9:38 AM CDT Miscellaneous samples (specimen) TISSUE SPECIMEN FROM SKIN / Unknown 08/30/2022 08/31/2022 9:38 AM CDT Huseyin Edgar DO LAB - PATHOLOGY/CYTO LOGY ORDERABLES DERMATOPATHOLOGY LABORATORY [facility] - Department of Dermatology [address], [address] [phone] * SARS-COV-2 (COVID-19) IN HOUSE (09/04/2019 1:00 PM CDT) Only the most recent of5 resultswithin the time period is included. COVID-19 PCR Not detected Not detected, Invalid 09/05/2019 7:50 PM CDT [facility] Microbiology SPECIMEN FROM NASOPHARYNGEAL STRUCTURE / Unknown Collection / Unknown 09/04/2019 1:00 PM CDT 09/05/2019 1:17 PM CDT Narrative [facility] - 09/05/2019 7:50 PM CDT This nucleic acid amplification assay performance was validated by [facility]. This test has been [...] Alton Valerio MD LAB - MICROBIOLOGY ORDERABLES [facility] [address] [place] [address], [facility] [phone] * CT ANGIO BRAIN AND NECK (08/21/2019 5:47 PM CDT) Anatomical Region Laterality Modality Head Computed Tomogra phy 08/21/2019 6:06 PM CDT Impressions 08/21/2019 6:08 PM CDT No evidence of cervical or cerebrovascular occlusion, hemodynamically significant stenosis, dissection, or aneurysm formation. *Reading Radiologist: Maki Wheeler on 08/21/2019 at 6:08 PM Narrative 08/21/2019 6:08 PM CDT STUDY: CTA OF THE HEAD AND NECK CLINICAL INFORMATION: Seizure at work. Convulsions. COMPARISON: CT of the head performed immediately prior. TECHNIQUE: Thin section CT angiography of the cervical vessels and [place] was performed using a multislice CT scanner, following the infusion of intravenous contrast material. Multiplanar and 3D reformats were created and evaluated. A total of 80 ml of Isovue-370 contrast material was administered intravenously. Dose reduction techniques were utilized. FINDINGS: CTA NECK: The aortic arch and proximal great vessels are patent. The common carotid arteries are patent bilaterally. On the basis of NASCET criteria, there is 0% stenosis at the carotid bifurcations. The ICAs are patent bilaterally. The vertebral arteries are patent. There is no significant stenosis, dissection, or aneurysm formation in the cervical vasculature. CTA HEAD: Antegrade flow is present in the distal internal carotid arteries (ICA), the distal vertebral arteries, the basilar artery and the proximal anterior (URBNAO), middle (MCA) and posterior cerebral arteries (MONOGRAM AND LETTER PASTER). There is no evidence for intracranial aneurysm or cerebrovascular occlusion. Procedure Note Maik Wheeler MD - 08/21/2019 STUDY: CTA OF THE HEAD AND NECK CLINICAL INFORMATION: Seizure at work. Convulsions. COMPARISON: CT of the head performed immediately prior. TECHNIQUE: Thin section CT angiography of the cervical vessels and [place] was performed using a multislice CT scanner, following the infusion of intravenous contrast material. Multiplanar and 3D reformats were created and evaluated. A total of 80 ml of Isovue-370 contrast material was administered intravenously. Dose reduction techniques were utilized. FINDINGS: CTA NECK: The aortic arch and proximal great vessels are patent. The common carotid arteries are patent bilaterally. On the basis of NASCET criteria, there is 0% stenosis at the carotid bifurcations. The ICAs are patent bilaterally. The vertebral arteries are patent. There is no significant stenosis, dissection, or aneurysm formation in the cervical vasculature. CTA HEAD: Antegrade flow is present in the distal internal carotid arteries (ICA), the distal vertebral arteries, the basilar artery and the proximal anterior (URBANO), middle (MCA) and posterior cerebral arteries (MONOGRAM AND LETTER PASTER). There is no evidence for intracranial aneurysm or cerebrovascular occlusion. IMPRESSION No evidence of cervical or cerebrovascular occlusion, hemodynamically significant stenosis, dissection, or aneurysm formation. *Reading Radiologist: Maki Wheeler on 08/21/2019 at 6:08 PM Dewey Samano DO CT ORDERABLES * CT HEAD NON CONTRAST - intracranial hemorrhage (08/21/2019 5:43 PM CDT) Anatomical Region Laterality Modality Head Computed Tomogra phy 08/21/2019 5:50 PM CDT Impressions 08/21/2019 5:51 PM CDT No intracranial hemorrhage or edema No acute intracranial process. *Reading Radiologist: Bon Nuñez on 08/21/2019 at 5:51 PM Narrative 08/21/2019 5:[address] Brain Without Contrast Indication: Seizure. Within the ED 2 days ago was diagnosed with Trichomonas and was given antibiotics. Lupus 29-year-old female Comparison: None available Technique: Axial images of the brain were obtained without contrast and reconstructions performed. Findings: The ventricles are normal in size and configuration. The fourth ventricle is midline. The brainstem and suprasellar cisterns are normal. No intra-or extra-axial hemorrhage, mass displacement, or edema. The tejeda-white matter differentiation is normal. One pixel sized hyperdensity right basal ganglia is presumed an artifact. No surrounding edema The imaged paranasal sinuses and mastoid air cells are clear. ??The imaged globes and post-septal soft tissues are normal. If this is an adult onset new onset seizure then, recommend follow-up MRI brain seizure protocol Procedure Note Bon Nuñez MD - 08/21/2019 CT Brain Without Contrast Indication: Seizure. Within the ED 2 days ago was diagnosed with Trichomonas and was given antibiotics. Lupus 29-year-old female Comparison: None available Technique: Axial images of the brain were obtained without contrast and reconstructions performed. Findings: The ventricles are normal in size and configuration. The fourth ventricle is midline. The brainstem and suprasellar cisterns are normal. No intra-or extra-axial hemorrhage, mass displacement, or edema. The tejeda-white matter differentiation is normal. One pixel sized hyperdensity right basal ganglia is presumed an artifact. No surrounding edema The imaged paranasal sinuses and mastoid air cells are clear. The imaged globes and post-septal soft tissues are normal. If this is an adult onset new onset seizure then, recommend follow-up MRI brain seizure protocol IMPRESSION No intracranial hemorrhage or edema No acute intracranial process. *Reading Radiologist: Bon Nuñez on 08/21/2019 at 5:51 PM Dewey Samano DO CT ORDERABLES * EKG 12-LEAD (08/21/2019 4:17 PM CDT) Only the most recent of2 resultswithin the time period is included. Ventricular Rate 99 BPM [facility] Atrial Rate 99 BPM [facility] P-R Interval 118 ms [facility] QRS Duration ms 68 ms [facility] Q-T Interval ms 352 ms [facility] QTC Calculation (Bezet) 451 ms [facility] Calculated P [place] 37 degrees [facility] Calculated R [place] 11 degrees [facility] Calculated T [place] 9 degrees [facility] Interpretation EKG Normal sinus rhythm Normal ECG No previous ECGs available Confirmed by PATRICA ASKEW MD ([id number]) on 08/22/2019 11:37:18 AM [facility] 08/21/2019 4:17 PM CDT 08/22/2019 11:37 AM CDT Dewey Samano DO ECG ORDERABLES [facility] * (ABNORMAL) URINE MICROSCOPIC ONLY REFLEX TO CULTURE (08/21/2019 4:07 PM CDT) Only the most recent of2 resultswithin the time period is included. Reflex Status Culture to follow 08/21/2019 4:19 PM CDT [facility] RBC UA 51-100(A) None Seen, 0-2, 3-5 # /hpf 08/21/2019 4:19 PM CDT [facility] WBC UA 6-10(A) None Seen, 0-5 # /hpf 08/21/2019 4:19 PM CDT [facility] Bacteria UA 2+(A) None Seen 08/21/2019 4:19 PM CDT [facility] Squamous Epithelial Cells >20(A) None Seen, 0-2, 3-5 /hpf 08/21/2019 4:19 PM CDT [facility] Mucus UA 3+ /LPF 08/21/2019 4:19 PM CDT [facility] Budding Yeast Many(A) None seen /hpf 08/21/2019 4:19 PM CDT [facility] Urine URINE SPECIMEN OBTAINED BY CLEAN CATCH PROCEDURE / Unknown Collection / Unknown 08/21/2019 4:07 PM CDT 08/21/2019 4:09 PM CDT Narrative [facility] - 08/21/2019 4:19 PM CDT Dewey Samano DO LAB - URINALYSIS ORD ERABLES Performing Organization Address [facility] Co de Phone Number [facility] [address] [place] [phone] * HCG URINE QUALITATIVE (08/21/2019 4:07 PM CDT) [facility] hCG Qualitative Urine Negative Negative 08/21/2019 4:18 PM CDT [facility] Urine URINE / Unknown Collection / Unknown 08/21/2019 4:07 PM CDT 08/21/2019 4:09 PM CDT Dewey Samano LAB - URINALYSIS ORD ERABLES Performing Organization Address [facility] de Phone Number [facility] [address] [place] [phone] * (ABNORMAL) PROLACTIN (08/21/2019 4:07 PM CDT) Only the most recent of2 resultswithin the time period is included. [facility] Prolactin 32.97(H) 5.18 - 26.53 ng/mL 08/21/2019 5:03 PM CDT [facility] Blood BLOOD SPECIMEN / Unknown Venipuncture / Unknown 08/21/2019 4:07 PM CDT 08/21/2019 4:09 PM CDT Dewey Gallodominic LAB - CHEMISTRY ORDE RABLES Performing Organization Address [facility] de Phone Number [facility] [address] [place] [phone] * (ABNORMAL) CULTURE URINE (08/21/2019 4:07 PM CDT) Only the most recent of2 resultswithin the time period is included. [facility] Culture Urine 10,000-50,0 00 CFU/mL Patti albicans(A) 08/23/2019 9:13 AM CDT [facility] Urine URINE SPECIMEN OBTAINED BY CLEAN CATCH PROCEDURE / Unknown Collection / Unknown 08/21/2019 4:07 PM CDT 08/21/2019 4:09 PM CDT Narrative [facility] - 08/23/2019 9:13 AM CDT Dewey Samano DO LAB - MICROBIOLOGY O RDERABLES [facility] [address] [place] [address], [facility] [phone] * (ABNORMAL) CBC W AUTO DIFFERENTIAL (08/21/2019 4:07 PM CDT) Only the most recent of10 resultswithin the time period is included. WBC 9.9 4.4 - 10.7 x10E9/L 08/21/2019 4:14 PM CDT [facility] WBC Corrected 08/21/2019 4:14 PM CDT [facility] RBC 4.19 3.80 - 5.20 x10E12/L 08/21/2019 4:14 PM CDT [facility] Hemoglobin 11.8(L) 12.0 - 15.6 gm/dL 08/21/2019 4:14 PM CDT [facility] Hematocrit 37.1 35.9 - 45.5 % 08/21/2019 4:14 PM CDT [facility] MCV 88.5 80.7 - 98.3 fl 08/21/2019 4:14 PM CDT [facility] MCH 28.2 26.7 - 34.0 pg 08/21/2019 4:14 PM CDT [facility] MCHC 31.8 30.8 - 35.9 gm/dL 08/21/2019 4:14 PM CDT [facility] Platelet Count 381 153 - 416 x10E9/L 08/21/2019 4:14 PM CDT [facility] RDW-CV 13.7 12.1 - 14.9 % 08/21/2019 4:14 PM CDT [facility] MPV 9.4 9.4 - 12.9 fl 08/21/2019 4:14 PM CDT [facility] Neutrophils % 84.7(H) 44.0 - 73.0 % 08/21/2019 4:14 PM CDT [facility] Lymphocytes % 10.2(L) 20.0 - 43.0 % 08/21/2019 4:14 PM CDT [facility] Monocytes % 4.4(L) 5.0 - 13.0 % 08/21/2019 4:14 PM CDT [facility] Eosinophils % 0.2 0.0 - 6.0 % 08/21/2019 4:14 PM CDT [facility] Basophils % 0.1 0.0 - 2.0 % 08/21/2019 4:14 PM CDT [facility] Immature Granulocytes 0.4 0 - 1 % 08/21/2019 4:14 PM CDT [facility] Neutrophil Absolute 8.36(H) 2.01 - 7.14 x10E9/L 08/21/2019 4:14 PM CDT [facility] Lymphocytes Absolute 1.01(L) 1.07 - 3.94 x10E9/L 08/21/2019 4:14 PM CDT [facility] Monocytes Absolute 0.43 0.26 - 1.07 x10E9/L 08/21/2019 4:14 PM CDT [facility] Eosinophils Absolute 0.02 0 - 0.47 x10E9/L 08/21/2019 4:14 PM CDT [facility] Basophils Absolute 0.01 0 - 0.08 x10E9/L 08/21/2019 4:14 PM CDT [facility] Immature Granulocytes Absolute 0.04 0.00 - 0.06 x10E9/L 08/21/2019 4:14 PM CDT [facility] nRBC Auto 0 /100 WBC 08/21/2019 4:14 PM CDT [facility] Blood BLOOD SPECIMEN / Unknown Venipuncture / Unknown 08/21/2019 4:07 PM CDT 08/21/2019 4:09 PM CDT Dewey Samano DO LAB - HEMATOLOGY ORD ERABLES [facility] [address] [place] [address] * COMPREHENSIVE METABOLIC PANEL (08/21/2019 4:07 PM CDT) Only the most recent of10 resultswithin the time period is included. Glucose 96 70 - 105 mg/dL 08/21/2019 4:28 PM CDT [facility] Sodium 140 136 - 145 mmol/L 08/21/2019 4:28 PM CDT [facility] Potassium 3.8 3.5 - 5.1 mmol/L 08/21/2019 4:28 PM CDT [facility] Chloride 104 98 - 107 mmol/L 08/21/2019 4:28 PM CDT [facility] CO2 25 23 - 31 mmol/L 08/21/2019 4:28 PM CDT [facility] Calcium 9.6 8.4 - 10.4 mg/dL 08/21/2019 4:28 PM CDT [facility] Anion Gap 11 8 - 16 mmol/L 08/21/2019 4:28 PM CDT [facility] BUN 13 7 - 18.7 mg/dL 08/21/2019 4:28 PM T [facility] Creatinine 0.75 0.57 - 1.11 mg/dL 08/21/2019 4:28 PM T [facility] Alkaline Phosphatase 53 40 - 150 U/L 08/21/2019 4:28 PM CDT [facility] ALT 15 0 - 61 U/L 08/21/2019 4:28 PM CDT [facility] AST 14 5 - 34 U/L 08/21/2019 4:28 PM CDT [facility] Protein Total 7.6 6.4 - 8.3 gm/dL 08/21/2019 4:28 PM CDT [facility] Albumin 4.3 3.5 - 5.2 gm/dL 08/21/2019 4:28 PM T [facility] Bilirubin Total 0.4 0.2 - 1.0 mg/dL 08/21/2019 4:28 PM CDT [facility] eGFR by MDRD >60 >60 mL/min/1.7 3m2 08/21/2019 4:28 PM CDT [facility] eGFR by MDRD >60 >60 mL/min/1.7 3m2 08/21/2019 4:28 PM CDT [facility] Blood BLOOD SPECIMEN / Unknown Venipuncture / Unknown 08/21/2019 4:07 PM CDT 08/21/2019 4:09 PM CDT Dewey Allen [place] AGUILERA LAB - CHEMISTRY GREGORY RIVERA [facility] Organization Address City/State/ZIP Co de Phone Number [facility] [address] [place] [address] * (ABNORMAL) DRUG SCREEN TOX URINE PANEL (08/21/2019 4:07 PM CDT) [facility] Amphetamines Screen Urine Not detected Not detected 08/21/2019 4:37 PM CDT [facility] Barbiturates Screen Urine Not detected Not detected 08/21/2019 4:37 PM CDT [facility] Benzodiazepines Screen Urine Detected(A) Not detected 08/21/2019 4:37 PM CDT [facility] Cannabinoids Screen Urine Not detected Not detected 08/21/2019 4:37 PM CDT [facility] Cocaine Screen Urine Not detected Not detected 08/21/2019 4:37 PM CDT [facility] Fentanyl Urine Detected(A) Not detected 08/21/2019 4:37 PM CDT [facility] Methadone Screen Urine Not detected Not detected 08/21/2019 4:37 PM CDT [facility] Opiate Screen Urine Not detected Not detected 08/21/2019 4:37 PM CDT [facility] Phencyclidine Screen Urine Not detected Not detected 08/21/2019 4:37 PM CDT [facility] Urine URINE / Unknown Collection / Unknown 08/21/2019 4:07 PM CDT 08/21/2019 4:09 PM CDT Narrative [facility] - 08/21/2019 4:37 PM CDT This drug screen is designed for MEDICAL purposes only. It is not to be used for legal purposes, including but not limited to worker's comp, police investigations, occupational issues, child custody, etc. ??Any positive result is only presumptive and must be confirmed with a separate confirmatory test ordered by the physician. Drug Screening Test Cutoff Values: AMPHETAMINES ?1000 ng/mL BARBITURATES ? 200 ng/mL BENZODIAZEPINES ?200 ng/mL CANNABINOIDS(THC) ?? 50 ng/mL COCAINE ?300 ng/mL FENTANYL ? 1 ng/mL METHADONE ?300 ng/mL OPIATES ?300 ng/mL PHENCYCLIDINE(PCP) ??25 ng/mL Dewey Samano DO LAB - URINE CHEMISTR Y ORDERABLES Performing Organization Address [facility] de Phone Number [facility] [address] [place] [phone] * LACTIC ACID BLOOD (08/21/2019 4:07 PM CDT) Lactic Acid 0.90 0.5 - 2.2 mmol/L 08/21/2019 4:22 PM CDT [facility] Blood BLOOD SPECIMEN / Unknown Venipuncture / Unknown 08/21/2019 4:07 PM CDT 08/21/2019 4:09 PM CDT Dewey Samano DO LAB - CHEMISTRY GREGORY RVIERA Performing Organization Address [facility] de Phone Number [facility] [address] [place] [phone] * ALCOHOL ETHYL BLOOD (08/21/2019 4:07 PM CDT) Ethanol <10.0 <10 mg/dL 08/21/2019 4:28 PM CDT [facility] Ethanol Calculated <0.010 <=0.100 gm/dL 08/21/2019 4:28 PM CDT [facility] Blood BLOOD SPECIMEN / Unknown Venipuncture / Unknown 08/21/2019 4:07 PM CDT 08/21/2019 4:09 PM CDT Narrative [facility] - 08/21/2019 4:28 PM CDT Non Legal Serum Alcohol Dewey Samano DO LAB - CHEMISTRY GREGORY RIVERA Performing Organization Address [facility] de Phone Number [facility] [address] [place] [address] [phone] * LAB RESULTS ORDER (06/18/2019) Only the most recent of3 resultswithin the time period is included. Scanned Document LAB - THERAPEUTIC DR THOMAS MONITORING ORDERABLES * URINALYSIS W/MICROSCOPIC REFLEX TO CULTURE (06/18/2019) Only the most recent of2 resultswithin the time period is included. Urine URINE SPECIMEN OBTAINED BY CLEAN CATCH PROCEDURE / Unknown 06/18/2019 Ashlee Magallon MD LAB - URINALYSIS ORD ERABLES Performing Organization Address [facility] de Phone Number OTHER LAB * C-REACTIVE PROTEIN (06/18/2019) Only the most recent of8 resultswithin the time period is included. Blood BLOOD SPECIMEN / Unknown 06/18/2019 Ashlee Magallon MD LAB - CHEMISTRY GREGORY RIVERA Performing Organization Address [facility] de Phone Number OTHER LAB * ERYTHROCYTE SEDIMENTATION RATE (06/18/2019) Only the most recent of8 resultswithin the time period is included. Erythrocyte Sedimentation Rate (EXTERNAL RESULT) 17 MM/HOUR OTHER LAB Blood BLOOD SPECIMEN / Unknown 06/18/2019 Ashlee Magallon MD LAB - HEMATOLOGY ORD GENOVEVA Performing Organization Address [facility] de Phone Number OTHER LAB * COMPLEMENT C3 C4 PANEL (06/18/2019) Only the most recent of5 resultswithin the time period is included. Blood BLOOD SPECIMEN / Unknown 06/18/2019 Ashlee Magallon MD LAB - CHEMISTRY GREGORY RIVERA Performing Organization Address [facility] [facility] de Phone Number OTHER LAB * HCG BETA BLOOD QUANTITATIVE (05/22/2019 12:27 PM CDT) Only the most recent of3 resultswithin the time period is included. hCG Value 346.88 mIU/mL [facility] ACCOUNT BILL Comment: ? hCG Reference Range, mIU/mL: ? Males ? 0-2.0 ? Non Females ? 0-6.0 ? Perimenopausal Females ages 41-55* ?0-7.7 ? Postmenopausal Females age >55* ? 0-14 ? Females, Weeks after Last Menstrual Period ?0.2-1 week ? 5-50 ?1 - 2 weeks ?50-500 ?2 - 3 weeks ?100-5000 ?3 - 4 weeks ?500-10,000 ?4 - 5 weeks ?1000-50,000 ?5 - 6 weeks ?10,000-100,000 ?6 - 8 weeks ?15,000-200,000 ?2 - 3 months ? 10,000-100,000 ?Trophoblastic Disease ?>100,000 *In higher than expected hCG in females > age 40, a serum FSH >20 IU/L makes unlikely. Blood BLOOD SPECIMEN / Unknown 05/22/2019 12:27 PM CDT 05/22/2019 Narrative Resulting Agency Comment Lab Testing performed at: [address] ?? [place] [id number] Ashlee Magallon MD LAB - CHEMISTRY GREGORY RIVERA Performing Organization Address [facility]/ZIP Co de Phone Number [facility] ACCOUNT BILL [address] [place] [address] * URINALYSIS MICROSCOPIC ONLY REFLEXED (05/22/2019 12:26 PM CDT) Only the most recent of5 resultswithin the time period is included. WBC UA 0-5 # /hpf [facility] ACCOUNT BILL Comment:REFERENCE RANGE: Non e Seen, 0-5 RBC UA 0-2 # /hpf [facility] ACCOUNT BILL Comment:REFERENCE RANGE: Non e Seen, 0-2, 3-5 Epithelial Cells (non renal) 3-5 /hpf [facility] ACCOUNT BILL Comment:REFERENCE RANGE: Non e Seen, 0-2, 3-5 Mucus UA 1+ /LPF [facility] ACCOUNT BILL Bacteria UA None seen None Seen [facility] ACCOUNT BILL 05/22/2019 12:2 6 PM CDT 05/22/2019 Narrative Resulting Agency Comment Lab Testing performed at: [address] ?? [place] [id number] Ashlee Magallon MD LAB - URINALYSIS MONSERRAT TOMAS Performing Organization Address [facility] Co de Phone Number [facility] ACCOUNT BILL [address] [place] [address] * (ABNORMAL) URINALYSIS REFLEX TO MICROSCOPIC NO CULTURE (05/22/2019 12:26 PM CDT) Specific [place] UA 1.017 1.005 - 1.030 [facility] ACCOUNT BILL pH UA 6.0 5.0 - 8.0 pH [facility] ACCOUNT BILL Color UA Yellow [facility] ACCOUNT BILL Comment:REFERENCE RANGE: Str aw, Yellow Appearance Clear Clear [facility] ACCOUNT BILL Leukocyte UA Negative Negative [facility] ACCOUNT BILL Protein UA 1+(A) Negative [facility] ACCOUNT BILL Glucose UA Negative Negative [facility] ACCOUNT BILL Ketone UA Negative Negative [facility] ACCOUNT BILL Occult Blood Urine 1+(A) Negative [facility] ACCOUNT BILL Bilirubin UA Negative Negative [facility] ACCOUNT BILL Urobilinogen Negative Negative mg/dL [facility] ACCOUNT BILL Nitrite UA Negative Negative [facility] ACCOUNT BILL Microscopic Examination Urine [facility] ACCOUNT BILL Comment: URINE MICROSCOPY ([facility]) UA ?See Below ??Urine microscopy to follow Urine URINE SPECIMEN OBTAINED BY CLEAN CATCH PROCEDURE / Unknown 05/22/2019 12:26 PM CDT 05/22/2019 Narrative Resulting Agency Comment Lab Testing performed at: [address] ?? [place] [phone] Ashlee Magallon MD LAB - URINALYSIS ORD ERABLES [facility] ACCOUNT BILL [address] [place] [address] * (ABNORMAL) DNA ANTIBODY DOUBLE STRANDED (05/22/2019 12:26 PM CDT) Only the most recent of2 resultswithin the time period is included. Anti-dsDNA Quantitative 84(H) 0 - 9 IU/mL [facility] ACCOUNT BILL Comment: ?Negative ?<5 ?Equivocal ??5 - 9 ?Positive ?>9 Blood BLOOD SPECIMEN / Unknown 05/22/2019 12:26 PM CDT 05/22/2019 Narrative Resulting Agency Comment Lab Testing performed at: [facility] [facility] [address] [facility] ??formerly [facility] [phone] Ashlee Magallon MD LAB - HEMATOLOGY ORD ERABLES Performing Organization Address City/[facility] Co de Phone Number [facility] ACCOUNT [address] [address] * XR HIPS BILATERAL 2VW (03/10/2019 12:30 PM DEVELOPMENT ASSISTANT) Only the most recent of2 resultswithin the time period is included. Anatomical Region Laterality Modality Radiographic Simin ging 03/10/2019 1:31 PM DEVELOPMENT ASSISTANT Impressions 03/10/2019 1:31 PM DEVELOPMENT ASSISTANT Unremarkable bilateral hips. Reading Radiologist: Jamarcus Oconnor MD on 03/10/2019 at 1:31 PM Narrative 03/10/2019 1:31 PM DEVELOPMENT ASSISTANT Examination: Two-view bilateral hips HISTORY: 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 There is a study from 10/08/2018 available for comparison. No fracture or dislocation seen. The joint spaces are unremarkable. No erosive changes are seen. Soft tissues appear to be unremarkable. Procedure Note Rc Oconnor MD - 03/10/2019 Examination: Two-view bilateral hips HISTORY: 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 There is a study from 10/08/2018 available for comparison. No fracture or dislocation seen. The joint spaces are unremarkable. No erosive changes are seen. Soft tissues appear to be unremarkable. IMPRESSION Unremarkable bilateral hips. Reading Radiologist: Jamarcus Oconnor MD on 03/10/2019 at 1:31 PM Ashlee Magallon MD DIAGNOSTIC IMAGING O RDERABLES * EMG WITH NERVE CONDUCTION STUDY (03/10/2019) Ashlee Magallon MD NEUROLOGY ORDERABLES [facility] RESULT SCAN * (ABNORMAL) CK BLOOD (03/04/2019 3:29 PM DEVELOPMENT ASSISTANT) Only the most recent of5 resultswithin the time period is included. CK 16(L) 29 - 143 U/L [facility] Comment: Test Performed at: [facility] [place] [address] [address] [facility] [place] ??[address] JACQUIE BYERS DO,MPH Blood BLOOD SPECIMEN / Unknown 03/04/2019 3:29 PM DEVELOPMENT ASSISTANT 03/04/2019 3:30 PM DEVELOPMENT ASSISTANT Ashlee Magallon MD LAB - CHEMISTRY GREGORY RIVERA [facility] [id number] [place] [address] * (ABNORMAL) CARDIOLIPIN ANTIBODY IGG/IGM PANEL (01/29/2019 12:32 PM DEVELOPMENT ASSISTANT) Only the most recent of2 resultswithin the time period is included. Cardiolipin Antibody IgG <9 0 - 14 GPL U/mL [facility] ACCOUNT BILL Comment: ? Negative: ?<15 ? Indeterminate: ? 15 - 20 ? Low-Med Positive: >20 - 80 ? High Positive: ? >80 Cardiolipin Antibody IgM 16(H) 0 - 12 MPL U/mL [facility] ACCOUNT BILL Comment: ? Negative: ?<13 ? Indeterminate: ? 13 - 20 ? Low-Med Positive: >20 - 80 ? High Positive: ? >80 Blood BLOOD SPECIMEN / Unknown 01/29/2019 12:32 PM DEVELOPMENT ASSISTANT 01/29/2019 Narrative Resulting Agency Comment Lab Testing performed at: [facility] [address] ??formerly [facility] [phone] Ashlee Magallon MD LAB - SEROLOGY ORDER ANAHI [facility] ACCOUNT BILL [address] [place] [address] * FSH + LH PANEL (01/29/2019 12:32 PM DEVELOPMENT ASSISTANT) LH 8.8 mIU/mL [facility] ACCOUNT BILL Comment: ?LH Reference Range Normal Menstruating Females ? Follicular Phase ? 1.80 - 11.78 mIU /mL ? Mid-Cycle Phase ?7.59 - 89.08 mIU /mL ? Luteal Phase ? 0.56 - 14.00 mIU /mL Males ? 0.57 - 12.07 mIU /mL ? FSH Reference Range Normal Menstruating Females ? Follicular Phase ?3.03 - 8.08 mIU /mL ? Mid-Cycles Phase ? 2.55 - 16.69 mIU /mL ? Luteal Phase ?1.38 - 5.47 mIU /mL Post Menopausal Females ? 26.72 - 133.41 mIU /mL Males ?0.95 - 11.95 mIU/ mL FSH 3.82 mIU/mL [facility] ACCOUNT BILL Blood BLOOD SPECIMEN / Unknown 01/29/2019 12:32 PM DEVELOPMENT ASSISTANT 01/29/2019 Narrative Resulting Agency Comment Lab Testing performed at: [address] ??[facility] [phone] Ashlee Magallon MD LAB - CHEMISTRY GREGORY RIVERA [facility] ACCOUNT BILL [address] [place] [address] * HYDROXYPROGESTERONE 17- QUANT (01/29/2019 12:31 PM DEVELOPMENT ASSISTANT) Pathologist [facility] 17-Hydroxyproge sterone LCMS 52 ng/dL [facility] ACCOUNT BILL Comment: ? Adult Female ?Follicular ?15 - ??70 ?Luteal ?35 290 Blood BLOOD SPECIMEN / Unknown 01/29/2019 12:31 PM DEVELOPMENT ASSISTANT 01/29/2019 Narrative [facility] ACCOUNT BILL - 01/31/2019 9:09 AM DEVELOPMENT ASSISTANT Test(s) [id number] Progesterone LCMS was developed and its performance characteristics determined by [facility]. It has not been cleared or approved by the Food and Drug Administration. Resulting Agency Comment Lab Testing performed at: [facility] ??[facility] [phone] Andrey Birch MD LAB - CHEMISTRY GREGORY RIVERA Performing Organization Address City/[facility]/ZIP Co de Phone Number [facility] ACCOUNT BILL [address] [place] [address] * TSH REFLEX FREE T4 (01/29/2019 12:31 PM DEVELOPMENT ASSISTANT) Only the most recent of2 resultswithin the time period is included. TSH 0.499 0.350 - 4.940 ulU/mL [facility] ACCOUNT BILL Blood BLOOD SPECIMEN / Unknown 01/29/2019 12:31 PM DEVELOPMENT ASSISTANT 01/29/2019 Narrative Resulting Agency Comment Lab Testing performed at: [facility] [address] [facility] ?? [place] [id number] Andrey Birch MD LAB - CHEMISTRY GREGORY RIVERA Performing Organization Address City/[facility]/ZIP Co de Phone Number [facility] ACCOUNT BILL [address] [place] [address] * TESTOSTERONE FREE+TOT PANEL (01/29/2019 12:31 PM DEVELOPMENT ASSISTANT) Testosterone Total LC-MS 11.5 10.0 - 55.0 ng/dL [facility] ACCOUNT BILL Free Testosterone(Dire ct) 0.2 0.0 - 4.2 pg/mL [facility] ACCOUNT BILL Blood BLOOD SPECIMEN / Unknown 01/29/2019 12:31 PM DEVELOPMENT ASSISTANT 01/29/2019 Narrative [facility] ACCOUNT BILL - 02/01/2019 4:35 AM DEVELOPMENT ASSISTANT Test(s) 273158--[id number], Total, LC/MS was developed and its performance characteristics determined by [facility]. It has not been cleared or approved by the Food and Drug Administration. Resulting Agency Comment Lab Testing performed at: [facility] ??[facility] [id number] Andrey Birch MD LAB - CHEMISTRY GREGORY RIVERA Performing Organization Address [facility] de Phone Number [facility] ACCOUNT BILL [address] [place] [address] * (ABNORMAL) DHEA SULFATE (01/29/2019 12:31 PM DEVELOPMENT ASSISTANT) Dehydroepiandrosterone Sulfate (DHEAS) 14.1(L) 84.8 - 378.0 ug/dL [facility] ACCOUNT BILL Blood BLOOD SPECIMEN / Unknown 01/29/2019 12:31 PM DEVELOPMENT ASSISTANT 01/29/2019 Narrative Resulting Agency Comment Lab Testing performed at: [facility] ??formerly [facility] [phone] Andrey Birch MD LAB - CHEMISTRY GREGORY RIVERA Performing Organization Address [facility] de Phone Number [facility] ACCOUNT BILL [address] [place] [address] * FSH (01/29/2019 12:31 PM DEVELOPMENT ASSISTANT) FSH 3.79 mIU/mL [facility] ACCOUNT BILL Comment: ? FSH Reference Range Normal Menstruating Females ? Follicular Phase ?3.03 - 8.08 mIU /mL ? Mid-Cycles Phase ? 2.55 - 16.69 mIU /mL ? Luteal Phase ?1.38 - 5.47 mIU /mL Post Menopausal Females ? 26.72 - 133.41 mIU /mL Males ?0.95 - 11.95 mIU/ mL Blood BLOOD SPECIMEN / Unknown 01/29/2019 12:31 PM DEVELOPMENT ASSISTANT 01/29/2019 Narrative Resulting Agency Comment Lab Testing performed at: [facility] [address] ??[facility] [phone] Andrey Birch MD LAB - CHEMISTRY GREGORY RIVERA [facility] ACCOUNT BILL [address] [place] [address] * PAP IG RFLX HPV ASCU (01/29/2019 10:41 AM DEVELOPMENT ASSISTANT) Diagnosis [facility] INSURANCE BILL Comment: NEGATIVE FOR INTRAEPITHELIAL LESION OR MALIGNANCY. FUNGAL ORGANISMS MORPHOLOGICALLY CONSISTENT WITH PATTI SPECIES ARE PRESENT. Specimen Adequacy [facility] INSURANCE BILL Comment: Satisfactory for evaluation. ??Endocervical and/or squamous metaplastic cells (endocervical component) are present. Clinician Provided ICD10 [facility] INSURANCE BILL Comment: M32.9 Z01.411 Performed by [facility] INSURANCE BILL Comment:Darci Wilkinson totechnologist Comment . [facility] INSURANCE BILL Note [facility] INSURANCE BILL Comment: The Pap smear is a screening test designed to aid in the detection of premalignant and malignant conditions of the uterine cervix. ??It is not a diagnostic procedure and should not be used as the sole means of detecting cervical cancer. ??Both false-positive and false-negative reports do occur. ? . IGLBP CPT Code Automation [facility] INSURANCE BILL Comment: This liquid based ThinPrep(R) pap test was screened with the use of an image guided system. Note [facility] INSURANCE BILL Comment: The HPV DNA reflex criteria were not met with this specimen result therefore, no HPV testing was performed. ? . Pathology/Cytolog y PART OF UTERINE CERVIX / Unknown 01/29/2019 10:41 AM DEVELOPMENT ASSISTANT 01/29/2019 Narrative [facility] INSURANCE BILL - 01/30/2019 2:35 PM DEVELOPMENT ASSISTANT No. of containers..01 ThinPrep Vial Resulting Agency Comment Lab Testing performed at: [facility] ??[place] [phone] Andrey Birch MD LAB - PATHOLOGY/CYTO LOGY ORDERABLES [facility] INSURANCE BILL [address] [place] [address] * PROTEIN CREATININE RATIO URINE RANDOM PNL (01/15/2019 11:38 AM DEVELOPMENT ASSISTANT) Only the most recent of3 resultswithin the time period is included. Creatinine Urine 207.1 Not Estab. mg/dL [facility] ACCOUNT BILL Protein Urine 41.2 Not Estab. mg/dL [facility] ACCOUNT BILL Protein/Creatin ine Ratio 199 0 - 200 mg/g creat [facility] ACCOUNT BILL Urine URINE SPECIMEN OBTAINED BY CLEAN CATCH PROCEDURE / Unknown 01/15/2019 11:38 AM DEVELOPMENT ASSISTANT 01/15/2019 Narrative Resulting Agency Comment Lab Testing performed at: [facility] [place] [id number] ??formerly [facility] [phone] Ashlee Magallon MD LAB - URINE CHEMISTR Y ORDERABLES Performing Organization Address City/[facility]/ZIP Co de Phone Number [facility] ACCOUNT BILL [address] [place] [address] * ECHOCARDIOGRAM 2D WITH DOPPLER (10/30/2018 9:15 AM CDT) 10/30/2018 9:15 AM CDT Narrative [facility] - 10/30/2018 3:41 PM CDT Transthoracic Echocardiogram 2D, M-mode, Doppler, and Color Doppler Patient: CARITO ELDER MR number: [id number] Height: 62 in Weight: 139.7 lb BSA: 1.64 m?? Study date: 30-Oct-2018 : 1990 Age: 28 years Gender: Female Race: 2 Allergies: METHYLPREDNISOLONE Reading Physician: ??Lloyd Mcarthur MD Manager Payer: ??Najma Sol, RDCS, RDMS, RVT Ordering Physician: ??Ashlee Magallon MD Reading Physician: ??Lloyd Mcarthur MD Summary: - ??Clinical question: - ??SOB, Lupus erythematosus - ??History: - ??Lupus, HTN, anemia, former smoker - ??Left ventricle: - ??Systolic function was normal. Ejection fraction was estimated to be 60 %. - ??There were no regional wall motion abnormalities. - ??Wall thickness was normal. Indications: SOB, Lupus erythematosus History: Prior history: Lupus, HTN, anemia, former smoker Procedure: The procedure was performed in the out-patient area. This was a routine study. The transthoracic approach was used. The study included complete 2D imaging, M-mode, complete spectral Doppler, and color Doppler. Systolic blood pressure was 128 mmHg. Diastolic blood pressure was 90 mmHg. Images were obtained from the parasternal, apical, subcostal, and suprasternal notch acoustic windows. Image quality was adequate. Left ventricle: Size was normal. Systolic function was normal. Ejection fraction was estimated to be 60 %. There were no regional wall motion abnormalities. Wall thickness was normal. Doppler: Left ventricular diastolic function parameters were normal. Aortic valve: The valve was trileaflet. Leaflets exhibited normal thickness and normal cuspal separation. Doppler: There was no stenosis. There was no regurgitation. Aorta: The root exhibited normal size. Mitral valve: Valve structure was normal. There was normal leaflet separation. Doppler: The transmitral velocity was within the normal range. There was no evidence for stenosis. There was trivial regurgitation. Left atrium: Size was normal. Right ventricle: The size was normal. Systolic function was normal. Wall thickness was normal. Pulmonic valve: Leaflets exhibited normal thickness, no calcification, and normal cuspal separation. Doppler: There was trivial regurgitation. Pulmonary artery: The size was normal. Doppler: Systolic pressure was within the normal range. Estimated peak pressure was 25 mmHg. Tricuspid valve: The valve structure was normal. There was normal leaflet separation. Doppler: The transtricuspid velocity was within the normal range. There was no evidence for tricuspid stenosis. There was trivial regurgitation. Right atrium: Size was normal. Pericardium: The pericardium was normal in appearance. System measurement tables 2D Mode LA Dimension; Mean (2D): 3.1 cm LA Systolic Volume Index; Biplane; (2D): 22 ml/m2 LA Systolic Volume; Biplane; (2D): 36 cm3 ESV (BP): 33 cm3 IVSd (2D): 1.2 cm IVSd; Mean (2D): 1.2 cm LV EDV; Biplane; (2D): 83 cm3 LV EF; Biplane; (2D): 60 % LVIDd (2D): 4.3 cm LVIDd; Mean (2D): 4.3 cm LVIDs (2D): 2.8 cm LVPWd (2D): 1 cm SV (BP): 50 cm3 Apical Four Chamber SI (A4C): 29.3 ml/m2 Apical Two Chamber SI (A2C): 30.5 ml/m2 M Mode AoR Diam (MM): 2.8 cm AoR Diam; Mean (MM): 2.8 cm Unspecified Scan Mode CLAU; Cont Eq by Peak Francisco: 2.4 cm2 Aortic Valve Area: 2.5 cm2 Peak Grad; Mean; Antegrade Flow: 7 mm[Hg] Vmax; Antegrade Flow: 130 cm/s LVOT CV Orifice Diam; Mean: 2 cm LVOT Diam: 2 cm LVOT Mean Grad: 2 mm[Hg] LVOT Mean Francisco: 72.5 cm/s LVOT VTI: 20.2 cm LVOT Vmax: 101 cm/s MV E Velocity: 75.8 cm/s MV E/A Ratio: 1.2 MV Peak A Francisco; Mean: 63.7 cm/s MV Peak A Velocity: 63.7 cm/s MV Peak E Francisco; Antegrade Flow: 75.8 cm/s Peak Grad; Mean; Antegrade Flow: 4 mm[Hg] Vmax; Antegrade Flow: 96.4 cm/s Peak Grad; Mean; Regurgitant Flow: 19 mm[Hg] Vmax; Mean; Regurgitant Flow: 217 cm/s Prepared and signed by Lloyd Mcarthur MD Signed 30-Oct-2018 15:40:34 Procedure Note 10/30/2018 Transthoracic Echocardiogram 2D, M-mode, Doppler, and Color Doppler Patient: CARITO ELDER MR number: [id number] Height: 62 in Weight: 139.7 lb BSA: 1.64 m?? Study date: 30-Oct-2018 : 1990 Age: 28 years Gender: Female Race: 2 Allergies: METHYLPREDNISOLONE Reading Physician: Lloyd Mcarthur MD Manager Payer: Najma Sol RDCS, RDMS, RVT Ordering Physician: Ashlee Magallon MD Reading Physician: Lloyd Mcarthur MD Summary: - Clinical question: - SOB, Lupus erythematosus - History: - Lupus, HTN, anemia, former smoker - Left ventricle: - Systolic function was normal. Ejection fraction was estimated to be 60 %. - There were no regional wall motion abnormalities. - Wall thickness was normal. Indications: SOB, Lupus erythematosus History: Prior history: Lupus, HTN, anemia, former smoker Procedure: The procedure was performed in the out-patient area. This was a routine study. The transthoracic approach was used. The study included complete 2D imaging, M-mode, complete spectral Doppler, and color Doppler. Systolic blood pressure was 128 mmHg. Diastolic blood pressure was 90 mmHg. Images were obtained from the parasternal, apical, subcostal, and suprasternal notch acoustic windows. Image quality was adequate. Left ventricle: Size was normal. Systolic function was normal. Ejection fraction was estimated to be 60 %. There were no regional wall motion abnormalities. Wall thickness was normal. Doppler: Left ventricular diastolic function parameters were normal. Aortic valve: The valve was trileaflet. Leaflets exhibited normal thickness and normal cuspal separation. Doppler: There was no stenosis. There was no regurgitation. Aorta: The root exhibited normal size. Mitral valve: Valve structure was normal. There was normal leaflet separation. Doppler: The transmitral velocity was within the normal range. There was no evidence for stenosis. There was trivial regurgitation. Left atrium: Size was normal. Right ventricle: The size was normal. Systolic function was normal. Wall thickness was normal. Pulmonic valve: Leaflets exhibited normal thickness, no calcification, and normal cuspal separation. Doppler: There was trivial regurgitation. Pulmonary artery: The size was normal. Doppler: Systolic pressure was within the normal range. Estimated peak pressure was 25 mmHg. Tricuspid valve: The valve structure was normal. There was normal leaflet separation. Doppler: The transtricuspid velocity was within the normal range. There was no evidence for tricuspid stenosis. There was trivial regurgitation. Right atrium: Size was normal. Pericardium: The pericardium was normal in appearance. System measurement tables 2D Mode LA Dimension; Mean (2D): 3.1 cm LA Systolic Volume Index; Biplane; (2D): 22 ml/m2 LA Systolic Volume; Biplane; (2D): 36 cm3 ESV (BP): 33 cm3 IVSd (2D): 1.2 cm IVSd; Mean (2D): 1.2 cm LV EDV; Biplane; (2D): 83 cm3 LV EF; Biplane; (2D): 60 % LVIDd (2D): 4.3 cm LVIDd; Mean (2D): 4.3 cm LVIDs (2D): 2.8 cm LVPWd (2D): 1 cm SV (BP): 50 cm3 Apical Four Chamber SI (A4C): 29.3 ml/m2 Apical Two Chamber SI (A2C): 30.5 ml/m2 M Mode AoR Diam (MM): 2.8 cm AoR Diam; Mean (MM): 2.8 cm Unspecified Scan Mode CLAU; Cont Eq by Peak Francisco: 2.4 cm2 Aortic Valve Area: 2.5 cm2 Peak Grad; Mean; Antegrade Flow: 7 mm[Hg] Vmax; Antegrade Flow: 130 cm/s LVOT CV Orifice Diam; Mean: 2 cm LVOT Diam: 2 cm LVOT Mean Grad: 2 mm[Hg] LVOT Mean Francisco: 72.5 cm/s LVOT VTI: 20.2 cm LVOT Vmax: 101 cm/s MV E Velocity: 75.8 cm/s MV E/A Ratio: 1.2 MV Peak A Francisco; Mean: 63.7 cm/s MV Peak A Velocity: 63.7 cm/s MV Peak E Francisco; Antegrade Flow: 75.8 cm/s Peak Grad; Mean; Antegrade Flow: 4 mm[Hg] Vmax; Antegrade Flow: 96.4 cm/s Peak Grad; Mean; Regurgitant Flow: 19 mm[Hg] Vmax; Mean; Regurgitant Flow: 217 cm/s Prepared and signed by Lloyd Mcarthur MD Signed 30-Oct-2018 15:40:34 Ashlee Magallon MD ECHO ORDERABLES [facility] [address] [address] * XR KNEE BILAT 3VW (10/08/2018 11:50 AM CDT) Anatomical Region Laterality Modality Lower Extremity Radiographic Simin ging 10/08/2018 12:1 6 PM CDT Narrative 10/08/2018 1:15 PM CDT RIGHT KNEE FOUR VIEWS LEFT KNEE FOUR VIEWS INDICATION: Knee pain history of lupus FINDINGS: No fracture. Mild lateral patellar subluxation bilaterally. Small bilateral joint effusions. No erosions or osteopenia. Edited by Nedra Morales on 10/08/2018 12:28 PM Reading Radiologist: Bon Goldstein MD on 10/08/2018 at 1:15 PM Procedure Note Bon Goldstein MD - 10/08/2018 RIGHT KNEE FOUR VIEWS LEFT KNEE FOUR VIEWS INDICATION: Knee pain history of lupus FINDINGS: No fracture. Mild lateral patellar subluxation bilaterally. Small bilateral joint effusions. No erosions or osteopenia. Edited by Nedra Morales on 10/08/2018 12:28 PM Reading Radiologist: Bon Goldstein MD on 10/08/2018 at 1:15 PM Ashlee Magallon MD DIAGNOSTIC IMAGING O RDERABLES * XR CERVICAL SPINE 6VW OR MORE (10/08/2018 11:50 AM CDT) Anatomical Region Laterality Modality Spine Radiographic Simin ging 10/08/2018 12:1 7 PM CDT Impressions 10/08/2018 1:15 PM CDT Mild straightening. Edited by Christina Ontiveros on 10/08/2018 12:32 PM Reading Radiologist: Bon Goldstein MD on 10/08/2018 at 1:15 PM Narrative 10/08/2018 1:15 PM CDT CERVICAL SPINE SIX VIEWS HISTORY: Neck pain, lupus. FINDINGS: Cervical spine is straightened. Alignment and disc spacing are normal. No instability with flexion or extension. No erosions or osteopenia. Lung apices are clear. Procedure Note Bon Goldstein MD - 10/08/2018 CERVICAL SPINE SIX VIEWS HISTORY: Neck pain, lupus. FINDINGS: Cervical spine is straightened. Alignment and disc spacing are normal. No instability with flexion or extension. No erosions or osteopenia. Lung apices are clear. IMPRESSION Mild straightening. Edited by Christina Ontiveros on 10/08/2018 12:32 PM Reading Radiologist: Bon Goldstein MD on 10/08/2018 at 1:15 PM Ashlee Magallon MD DIAGNOSTIC IMAGING O RDERABLES * (ABNORMAL) BARAK COMPREHENSIVE PLUS PROFILE (10/08/2018 10:35 AM CDT) Anti-dsDNA Quantitative 68(H) 0 - 9 IU/mL [facility] ACCOUNT BILL Comment: ?Negative ?<5 ?Equivocal ??5 - 9 ?Positive ?>9 PROCESS ENGINEERING MANAGER Antibody 1.9(H) 0.0 - 0.9 AI [facility] ACCOUNT BILL Perez (PHUONG) Antibody <0.2 0.0 - 0.9 AI [facility] ACCOUNT BILL Perez/PROCESS ENGINEERING MANAGER Antibodies <0.2 0.0 - 0.9 AI [facility] ACCOUNT BILL Antiscleroderma-70 Antibody <0.2 0.0 - 0.9 AI [facility] ACCOUNT BILL Sjogren's Antibodies (SSA) <0.2 0.0 - 0.9 AI [facility] ACCOUNT BILL Sjogren's Antibodies (SSB) <0.2 0.0 - 0.9 AI [facility] ACCOUNT BILL Antichromatin Antibodies >8.0(H) 0.0 - 0.9 AI [facility] ACCOUNT BILL Antiribosomal P Antibody <0.2 0.0 - 0.9 AI [facility] ACCOUNT BILL Doris-1 Antibody <0.2 0.0 - 0.9 AI [facility] ACCOUNT BILL Centromere B Antibody <0.2 0.0 - 0.9 AI [facility] ACCOUNT BILL See Below [facility] ACCOUNT BILL Comment: Autoantibody ? Disease Association ?Condition ?Frequency ? Antinuclear Antibody, ?SLE, mixed connective Direct (BARAK-D) ? tissue diseases ? dsDNA ?SLE ?40 - 60% ? Chromatin ?Drug induced SLE ?90% ? SLE ?48 - 97% ? SSA (Ro) ? SLE ?25 - 35% ? Sjogren's Syndrome ? 40 - 70% ? Lupus ? 100% ? SSB (La) ? SLE ? 10% ? Sjogren's Syndrome ?30% ? Sm (anti-Perez) ?SLE ?15 - 30% ? PROCESS ENGINEERING MANAGER ?Mixed Connective Tissue ? Disease ? 95% (U1 nRNP, ?SLE ?30 - 50% anti-ribonucleoprotein) ??Polymyositis and/or ? Dermatomyositis ? 20% ? Scl-70 (antiDNA ?Scleroderma (diffuse) ?20 - 35% topoisomerase) ? Crest ? 13% ? Doris-1 ? Polymyositis and/or ? Dermatomyositis ?20 - 40% ? Centromere B ? Scleroderma - Crest ? variant ? 80% ? Ribosomal P ?SLE ?10 - 20% Blood BLOOD SPECIMEN / Unknown 10/08/2018 10:35 AM CDT 10/08/2018 Narrative Resulting Agency Comment Lab Testing performed at: [facility] [address] [place] [address] ??formerly [facility] [phone] Ashlee Magallon MD LAB - CHEMISTRY GREGORY RIVERA [facility] ACCOUNT BILL [address] [place] [address] * (ABNORMAL) JOSEMANUEL STAINING PATTERNS REFLEXED (10/08/2018 10:35 AM CDT) Homogeneous Pattern >1:1280(A) [facility] ACCOUNT BILL Nucleolar Pattern NOT NEEDED [facility] ACCOUNT BILL Comment:Ancillary determined the test is not needed. Speckled Pattern NOT NEEDED [facility] ACCOUNT BILL Comment:Ancillary determined the test is not needed. Centromere Pattern NOT NEEDED [facility] ACCOUNT BILL Comment:Ancillary determined the test is not needed. Spindle Apparatus Pattern NOT NEEDED [facility] ACCOUNT BILL Comment:Ancillary determined the test is not needed. Nuclear Membrane Pattern NOT NEEDED [facility] ACCOUNT BILL Comment:Ancillary determined the test is not needed. Midbody Pattern NOT NEEDED LAB [facility] ACCOUNT BILL Comment:Ancillary determined the test is not needed. Nuclear Dot Pattern NOT NEEDED [facility] ACCOUNT BILL Comment:Ancillary determined the test is not needed. PCNA Pattern NOT NEEDED [facility] ACCOUNT BILL Comment:Ancillary determined the test is not needed. Centriole Pattern NOT NEEDED [facility] ACCOUNT BILL Comment:Ancillary determined the test is not needed. Note [facility] ACCOUNT BILL Comment: A positive BARAK result may occur in healthy individuals (low titer) or be associated with a variety of diseases. ??See interpretation chart which is not all inclusive: ? . Pattern ?Antigen Detected ??Suggested Disease Association ? Homogeneous ??DNA(ds,ss), ? SLE - High titers ? Nucleosomes, ? Histones ?Drug-induced SLE ? Speckled ? Sm, PROCESS ENGINEERING MANAGER, SCL-70, ??SLE,MCTD,PSS (diffuse form), ? SS-A/SS-B ? Sjogrens ? Nucleolar ?SCL-70, PM-1/SCL ??High titers Scleroderma, ? PM/DM ? Centromere ?? Centromere ?PSS (limited form) w/Crest ? syndrome variable ? Nuclear Dot ??[id number] ??Primary Biliary Cirrhosis ? Nuclear ?GP210, ?Primary Biliary Cirrhosis Membrane ? shelbie A,B,C ? 10/08/2018 10:3 5 AM CDT 10/08/2018 Narrative Resulting Agency Comment [facility]: [facility] [address] [facility] ??formerly [facility] [phone] Ashlee Magallon MD LAB - PATHOLOGY/CYTO LOGY ORDERABLES Performing Organization Address [facility] de Phone Number [facility] ACCOUNT BILL [address] [place] [address] * LUPUS ANTICOAGULANT PANEL W RFLX (10/08/2018 10:35 AM CDT) Pathologist [facility] PTT-LA 31.2 0.0 - 51.9 sec [facility] ACCOUNT BILL dRVVT 31.1 0.0 - 47.0 sec [facility] ACCOUNT BILL Interpretation Comment: [facility] ACCOUNT BILL Comment:No lupus anticoagula nt was detected. Blood BLOOD SPECIMEN / Unknown 10/08/2018 10:35 AM CDT 10/08/2018 Narrative Resulting Agency Comment Lab Testing performed at: [facility] [address] ??[facility] [phone] Ashlee Magallon MD LAB - HEMATOLOGY ORD ERABLES Performing Organization Address [facility] de Phone Number [facility] ACCOUNT BILL [address] [place] [address] * (ABNORMAL) BARAK BLOOD SCREEN W/REFLEX TITER (10/08/2018 10:35 AM CDT) [facility] BARAK Positive(A ) [facility] ACCOUNT BILL Comment: ?Negative ?? <1:80 ?Borderline ??1:80 ?Positive ?? >1:80 Blood BLOOD SPECIMEN / Unknown 10/08/2018 10:35 AM CDT 10/08/2018 Narrative Resulting Agency Comment Lab Testing performed at: [facility] [place] [id number] [facility] ??formerly [facility] [phone] Ashlee Magallon MD LAB - CHEMISTRY GREGORY RIVERA Performing Organization Address [facility] Co de Phone Number [facility] ACCOUNT BILL [address] [place] [address] * BETA-2 GLYCOPROTEIN 1 ANTIBODY IGG/IGM PANEL (10/08/2018 10:35 AM CDT) Pathologist [facility] Beta-2 Glycoprotein I Antibody IgG <9 0 - 20 GPI IgG units [facility] ACCOUNT BILL Comment: The reference interval reflects a 3SD or 99th percentile interval, which is thought to represent a potentially clinically significant result in accordance with the International Consensus Statement on the classification criteria for definitive antiphospholipid syndrome (APS). J Thromb Haem 2006;4:295-306. Beta-2 Glycoprotein I Antibody IgM <9 0 - 32 GPI IgM units [facility] ACCOUNT BILL Comment: The reference interval reflects a 3SD or 99th percentile interval, which is thought to represent a potentially clinically significant result in accordance with the International Consensus Statement on the classification criteria for definitive antiphospholipid syndrome (APS). J Thromb Haem 2006;4:295-306. Blood BLOOD SPECIMEN / Unknown 10/08/2018 10:35 AM CDT 10/08/2018 Narrative Resulting Agency Comment Lab Testing performed at: [facility] ??[facility] [id number] Ashlee Magallon MD LAB - CHEMISTRY GREGORY RIVERA Performing Organization Address [facility] Co de Phone Number [facility] ACCOUNT BILL [address] [place] [address] * THIOPURINE METHYLTRANSFERASE (10/08/2018 10:35 AM CDT) Pathologist [facility] TPMT Activity 19.4 Units/mL RBC [facility] ACCOUNT BILL Comment: Reference Range: Normal: 15.1 - 26.4 Heterozygous for low TPMT variant: 6.3 - 15.0 Homozygous for low TPMT variant: <6.3 Interpretation [facility] ACCOUNT BILL Comment: The above results can be interpreted as Normal for red blood cell Thiopurine Methyltransferase activity. For patients having an intrinsic low level of TPMT, recent RBC transfusion can variably increase their assayed enzymatic activity depending on the amount and circulating half-life of the transfused red blood cells. This test was developed and its performance characteristics determined by [facility]. It has not been cleared or approved by the Food and Drug Administration. This case has been reviewed, approved, interpreted and electronically signed by Pratik Carvalho, PhD, [facility]. Methodology [facility] ACCOUNT BILL Comment: Enzymatic Endpoint/Liquid Chromatography - Tandem Mass Spectrometry (LC-MS/MS) Blood BLOOD SPECIMEN / Unknown 10/08/2018 10:35 AM CDT 10/08/2018 Narrative Resulting Agency Comment Lab Testing performed at: [facility] [address] [place] [address] ??[facility] [phone] Ashlee Magallon MD LAB - CHEMISTRY GREGORY RIVERA [facility] ACCOUNT BILL [address] [place] [address] * CYCLIC CITRUL PEPTIDE ANTIBODY IGG/IGA (CCP) (10/08/2018 10:34 AM CDT) CCP Antibodies IgG/IgA 6 0 - 19 units [facility] ACCOUNT BILL Comment: ? Negative ? <20 ? Weak positive ?20 - 39 ? Moderate positive ??40 - 59 ? Strong positive ?>59 Blood BLOOD SPECIMEN / Unknown 10/08/2018 10:34 AM CDT 10/08/2018 Narrative Resulting Agency Comment Lab Testing performed at: [facility] [address] ??[facility] [phone] Ashlee Magallon MD LAB - SEROLOGY ORDER ANAHI Performing Organization Address City/[facility] Co de Phone Number [facility] ACCOUNT BILL [address] [place] [address] * HEPATITIS B SURFACE ANTIGEN CONFIRM RFLXED (10/08/2018 10:34 AM CDT) Hepatitis B Virus Surface Antigen Confirm Negative [facility] ACCOUNT BILL Comment:Final result obtaine d by neutralization. 10/08/2018 10:3 4 AM CDT 10/08/2018 Narrative Resulting Agency Comment Lab Testing performed at: [facility] ??formerly [facility] [phone] Ashlee Magallon MD LAB - CHEMISTRY ORDE RABLES Performing Organization Address [facility] Co de Phone Number [facility] ACCOUNT BILL [address] [place] [address] * (ABNORMAL) HEPATITIS PANEL (10/08/2018 10:34 AM CDT) Hepatitis A Virus Antibody IgM Negative Negative [facility] ACCOUNT BILL Hepatitis A Virus Antibody Total Positive(A) Negative [facility] ACCOUNT BILL Hepatitis B Virus Surface Antigen Confirm. indicated Negative [facility] ACCOUNT BILL Hepatitis Be Antigen Negative Negative [facility] ACCOUNT BILL Hepatitis B Core Virus Antibody IgM Negative Negative [facility] ACCOUNT BILL Hepatitis B Core Virus Antibody Total Negative Negative [facility] ACCOUNT BILL Hepatitis Be Antibody Negative Negative [facility] ACCOUNT BILL Hepatitis B Virus Surface Antibody Reactive [facility] ACCOUNT BILL Comment: ? Non Reactive: Inconsistent with immunity, ? less than 10 mIU/mL ? Reactive: ? Consistent with immunity, ? greater than 9.9 mIU/mL Verified by repeat analysis Blood BLOOD SPECIMEN / Unknown 10/08/2018 10:34 AM CDT 10/08/2018 Narrative Resulting Agency Comment Lab Testing performed at: [facility] [address] ??formerly [facility] [phone] Ashlee Magallon MD LAB - CHEMISTRY GREGORY RIVERA [facility] ACCOUNT BILL [address] [place] [address] * RHEUMATOID FACTOR BLOOD QUANTITATIVE (10/08/2018 10:34 AM CDT) Rheumatoid Factor <10.0 0.0 - 13.9 IU/mL [facility] ACCOUNT BILL Blood BLOOD SPECIMEN / Unknown 10/08/2018 10:34 AM CDT 10/08/2018 Narrative Resulting Agency Comment Lab Testing performed at: [facility] [address] ??formerly [facility] [phone] Ashlee Magallon MD LAB - CHEMISTRY GREGORY RIVERA [facility] ACCOUNT BILL [address] [place] [address] * (ABNORMAL) VITAMIN D 25-HYDROXY (10/08/2018 10:34 AM CDT) Vitamin D, 25 Hydroxy 22.2(L) 30.0 - 100.0 ng/mL [facility] ACCOUNT BILL Comment: Vitamin D deficiency has been defined by the [place] of Medicine and an Endocrine Society practice guideline as a level of serum 25-OH vitamin D less than 20 ng/mL (1,2). The Endocrine Society went on to further define vitamin D insufficiency as a level between 21 and 29 ng/mL (2). 1. IOM ([place] of Medicine). 2010. Dietary reference ?? intakes for calcium and D. [place]: The ?? National Academies Press. 2. Adolph MF, Timmy NC, Trudy SHELTON, et al. ?? Evaluation, treatment, and prevention of vitamin D ?? deficiency: an Endocrine Society clinical practice ?? guideline. JCEM. 2010; 96(6):1911-30. Blood BLOOD SPECIMEN / Unknown 10/08/2018 10:34 AM CDT 10/08/2018 Narrative Resulting Agency Comment Lab Testing performed at: [facility] [address] ??formerly [facility] [phone] Ashlee Magallon MD LAB - CHEMISTRY GREGORY RIVERA Performing Organization Address City/[facility]/ZIP Co de Phone Number [facility] ACCOUNT BILL [address] [place] [address] * ALDOLASE (10/08/2018 10:34 AM CDT) Pathologist [facility] Aldolase 6.3 3.3 - 10.3 U/L [facility] ACCOUNT BILL Blood BLOOD SPECIMEN / Unknown 10/08/2018 10:34 AM CDT 10/08/2018 Narrative Resulting Agency Comment Lab Testing performed at: [facility] [address] ??formerly [facility] [phone] Ashlee Magallon MD LAB - CHEMISTRY GREGORY RIVERA [facility] ACCOUNT BILL [address] [place] [address] * (ABNORMAL) QUANTIFERON TB-GOLD (10/08/2018 10:34 AM CDT) QuantiFERON Incubation Incubation performed. [facility] ACCOUNT BILL QuantiFERON Criteria [facility] ACCOUNT BILL Comment: The QuantiFERON-TB Gold Plus result is determined by subtracting the Nil value from either TB antigen (Ag) tube. The mitogen tube serves as a control for the test. QuantiFERON TB1 Ag Value 0.14 IU/mL [facility] ACCOUNT BILL QuantiFERON TB2 Ag Value 0.16 IU/mL [facility] ACCOUNT BILL QuantiFERON Nil Value 0.17 IU/mL [facility] ACCOUNT BILL QuantiFERON Mitogen Value 0.24 IU/mL [facility] ACCOUNT BILL QuantiFERON-TB Gold Plus Indeterminate( A) Negative [facility] ACCOUNT BILL Comment: Mitogen (positive control) gave low response. This may indicate anergy or immune suppression. Early draws and extended transit time may also result in low positive control and indeterminate results. Blood BLOOD SPECIMEN / Unknown 10/08/2018 10:34 AM CDT 10/08/2018 Narrative Resulting Agency Comment Lab Testing performed at: [facility] [place] [address] [facility] [address] ?? [facility] [id number] Ashlee Magallon MD LAB - CHEMISTRY GREGORY RIVERA Performing Organization Address City/[facility] Co de Phone Number [facility] ACCOUNT BILL [address] [place] [address] * LDH BLOOD (10/08/2018 10:34 AM CDT) LDH 182 119 - 226 IU/L [facility] ACCOUNT BILL Blood BLOOD SPECIMEN / Unknown 10/08/2018 10:34 AM CDT 10/08/2018 Narrative Resulting Agency Comment Lab Testing performed at: [facility] [address] ??formerly [facility] [phone] Ashlee Magallon MD LAB - CHEMISTRY GREGORY RIVERA Performing Organization Address [facility] Co de Phone Number [facility] ACCOUNT BILL [address] [place] [address] * TSH (10/08/2018 10:34 AM CDT) TSH 1.160 0.450 - 4.500 uIU/mL [facility] ACCOUNT BILL Blood BLOOD SPECIMEN / Unknown 10/08/2018 10:34 AM CDT 10/08/2018 Narrative Resulting Agency Comment Lab Testing performed at: [facility] [address] ??formerly [facility] [phone] Ashlee Magallon MD LAB - CHEMISTRY GREGORY RIVERA [facility] ACCOUNT BILL [address] [place] [address] * T4 FREE (10/08/2018 10:34 AM CDT) Pathologist [facility] T4 Free 1.15 0.82 - 1.77 ng/dL [facility] ACCOUNT BILL Blood BLOOD SPECIMEN / Unknown 10/08/2018 10:34 AM CDT 10/08/2018 Narrative Resulting Agency Comment Lab Testing performed at: [facility] [place] [address] [facility] ??formerly [facility] [phone] Ashlee Magallon MD LAB - CHEMISTRY GREGORY RIVERA [facility] ACCOUNT BILL [address] [place] [address] * HEPATITIS C ANTIBODY (10/08/2018 10:34 AM CDT) Pathologist [facility] Hepatitis C Antibody 0.2 0.0 - 0.9 s/co ratio [facility] ACCOUNT BILL Comment: ? Negative: ? < 0.8 ?Indeterminate: 0.8 - 0.9 ? Positive: ? > 0.9 ? . ?The CDC recommends that a positive HCV antibody result ?be followed up with a HCV Nucleic Acid Amplification ?test (010939). Blood BLOOD SPECIMEN / Unknown 10/08/2018 10:34 AM CDT 10/08/2018 Narrative Resulting Agency Comment Lab Testing performed at: [facility] [address] ??formerly [facility] [phone] Ashlee Magallon MD LAB - CHEMISTRY GREGORY RIVERA [facility] ACCOUNT BILL [address] [place] [address] * CARDIAC EKG ORDER (10/02/2018 6:01 PM CDT) Narrative 10/02/2018 6:01 PM CDT Ordered by an unspecified provider. Scanned Document CARDIAC SERVICES ORD ERABLES * VAS BILATERAL VENOUS DUPLEX LE (10/02/2018 9:46 AM CDT) Anatomical Region Laterality Modality Lower Extremity Other 10/02/2018 9:28 AM CDT Narrative Procedure Note 10/02/2018 [place] [address] Lower Extremity Venous Ultrasound Report Pat.Name: CARITO ELDER Pat.ID: [id number] .Date: 10/02/2018 Refer.MD: rosie Faye Exam Time: 9:28:00 AM Study Type:LE Venous Age: 3 1990,28Y Sex: FEMALE Sonogrphr: Tricia Medina RDMS, RVT Pat. Stat.:Inpatient Room: ER 30 Reason for Study: Swelling -Leg, bilateral, + D-Dimer Procedures: Lower Extremity Venous - Bilateral Race: 2 Visit ID: [id number] ++++++++++++++++++++++++++++++++++++ SUMMARY: ++++++++++++++++++++++++++++++++++++ No evidence of deep venous thrombosis of either the left or right lower extremity. ++++++++++++++++++++++++++++++++++++ FINDINGS: ++++++++++++++++++++++++++++++++++++ Procedure: Venous duplex imaging of both lower extremities was performed using color flow and spectral Doppler analysis. Study Quality: This study is of adequate technical quality. Bilateral: All vessels seen appear patent and compressible. There was spontaneous and phasic flow seen in all the major veins of both lower extremities. Appropriate augmentation with distal compression. Comments: No acute DVT seen. Signed 10/02/2018 09:48 AM Huseyin Gibbs MD Rosie Faye DO VASCULAR LAB ORDERAB LES * CT ANGIO CHEST PULM EMBOLISM (10/02/2018 12:04 AM CDT) Anatomical Region Laterality Modality Chest Computed Tomogra phy 10/02/2018 12:4 6 AM CDT Impressions 10/02/2018 12:48 AM CDT Negative for pulmonary embolism. Reading Radiologist: Demario Costello MD on 10/02/2018 at 12:48 AM Narrative 10/02/2018 12:[address] OF THE CHEST WITH IV CONTRAST - PULMONARY EMBOLISM PROTOCOL Information from H.I.S.: ?? Shortness of breath ?? Clinical information with the exam: ? She states I think I am having blood clots in my legs right now. She reports her posterior knee pain started yesterday and she experiences pain with minimal movement of her legs. Generalized swelling is worse in her posterior knees and hands as well. Recently started on leflunomide on 09/17/18 by her PCP. Also reports shortness of breath with her symptoms. She states she visited [facility] last week for similar symptoms and was told her symptoms could be stemming from scleroderma. TECHNIQUE: ??Axial images of the chest were performed during the infusion of 60 mL of Isovue-370 contrast, intravenously, as per the protocol for pulmonary embolism assessment. Sagittal, axial and coronal 2-D reformatted images were performed with the CT scanner. ??This report was transcribed with a computerized speech recognition system. ??In an effort to expedite patient care, it has not been adjusted for typographical, grammatical or syntax problems by a trained medical records specialist. For questions about the report, please contact the Radiology Department. FINDINGS: ??I do not see any large, central intra-arterial filling defects in the pulmonary arteries. ??The lungs are clear of confluent infiltrates. ??There are no measurable pleural effusions. ??The heart size is normal. Procedure Note Demario Costello MD - 10/02/2018 CT OF THE CHEST WITH IV CONTRAST - PULMONARY EMBOLISM PROTOCOL Information from H.I.S.: Shortness of breath Clinical information with the exam: She states I think I am having blood clots in my legs right now. She reports her posterior knee pain started yesterday and she experiences pain with minimal movement of her legs. Generalized swelling is worse in her posterior knees and hands as well. Recently started on leflunomide on 09/17/18 by her PCP. Also reports shortness of breath with her symptoms. She states she visited [facility] week for similar symptoms and was told her symptoms could be stemming from scleroderma. TECHNIQUE: Axial images of the chest were performed during the infusion of 60 mL of Isovue-370 contrast, intravenously, as per the protocol for pulmonary embolism assessment. Sagittal, axial and coronal 2-D reformatted images were performed with the CT scanner. This report was transcribed with a computerized speech recognition system. In an effort to expedite patient care, it has not been adjusted for typographical, grammatical or syntax problems by a trained medical records specialist. For questions about the report, please contact the Radiology Department. FINDINGS: I do not see any large, central intra-arterial filling defects in the pulmonary arteries. The lungs are clear of confluent infiltrates. There are no measurable pleural effusions. The heart size is normal. IMPRESSION Negative for pulmonary embolism. Reading Radiologist: Demario Costello MD on 10/02/2018 at 12:48 AM Fransico Encinas MD CT ORDERABLES * (ABNORMAL) D-DIMER (10/01/2018 11:01 PM CDT) [facility] D-Dimer 1.47(H) 0.17 - 0.5 mg/L FEU 10/01/2018 11:21 PM CDT [facility] Blood BLOOD SPECIMEN / Unknown Venipuncture / Unknown 10/01/2018 11:01 PM CDT 10/01/2018 11:06 PM CDT Narrative [facility] - 10/01/2018 11:21 PM CDT The [employer] D-Dimer assay is intended for use as an aid in diagnosis of venous thromboembolism [(VTE): deep vein thrombosis (DVT), pulmonary embolism (PE), and disseminated intravascular coagulation (DIC)], and has received U.S. Food and Drug Administration (FDA) approval to exclude VTE in patients with low or moderate pretest probability of PE or DVT (per Wells' rules). At a clinical cut-off value 0.50 mg/L FEU, the Negative Predictive Value of this assay is 99.8% for excluding PE and 100% for excluding DVT. A very low percentage of patients with VTE may yield D-Dimer results below the cut-off value. An elevated D-Dimer result has low specificity (40.4% for PE, 35.5% for DVT) and is a poor predictor of VTE. An elevated D-Dimer result may indicate DIC in the appropriate clinical setting. Results of this test should always be interpreted in conjunction with the patient's medical history, clinical presentation, and other findings. Fransico Encinas MD LAB - COAGULA TION ORDERABLES [facility] [address] [place] [id number] * XR CHEST PA AND LATERAL (10/01/2018 9:04 PM CDT) Anatomical Region Laterality Modality Chest Radiographic Simin ging 10/01/2018 9:23 PM CDT Impressions 10/01/2018 9:24 PM CDT No acute disease in the chest. Reading Radiologist: Demario Costello MD on 10/01/2018 at 9:24 PM Narrative 10/01/2018 9:24 PM CDT CHEST - TWO VIEWS INDICATION: Shortness of breath. ?Pt reports hx lupus, generalized swelling of lower legs x1 week since starting new medication ??. COMPARISON: None. FINDINGS: Frontal and lateral views of the chest show the lungs to be clear of confluent infiltrates. There are no pleural effusions. The heart size is normal. Procedure Note Demario Costello MD - 10/01/2018 CHEST - TWO VIEWS INDICATION: Shortness of breath. Pt reports hx lupus, generalized swelling of lower legs x1 week since starting new medication . COMPARISON: None. FINDINGS: Frontal and lateral views of the chest show the lungs to be clear of confluent infiltrates. There are no pleural effusions. The heart size is normal. IMPRESSION No acute disease in the chest. Reading Radiologist: Demario Costello MD on 10/01/2018 at 9:24 PM Vandana Cardoza PA-C DIAGNOSTIC IMAGING O RDERABLES * TROPONIN I (10/01/2018 8:50 PM CDT) Troponin I <0.010 <0.038 ng/mL 10/01/2018 11:35 PM CDT [facility] Blood BLOOD SPECIMEN / Unknown Venipuncture / Unknown 10/01/2018 8:50 PM CDT 10/01/2018 8:55 PM CDT Fransico Encinas MD LAB - PARENT COACH RY ORDERABLES Performing Organization Address City/State/[facility] Co de Phone Number [facility] [address] [place] [address] * HIV-1 HIV-2 ANTIGEN/ANTIBODY (09/25/2018 11:03 AM CDT) HIV Antigen/Antibod y 1 & 2 Non-reacti ve Non-react kaylyn 09/25/2018 12:18 PM CDT [facility] Comment: Neither HIV-1 p24 Antigen nor HIV-1/HIV-2 Antibodies are detected. ? Blood BLOOD SPECIMEN / Unknown Venipuncture / Unknown 09/25/2018 11:03 AM CDT 09/25/2018 11:06 AM CDT Yaquelin Carrion MD LAB - HEMATOLOGY ORD ERABLES Performing Organization Address [facility]/[place] [address], [facility] [phone] * MAGNESIUM BLOOD (09/25/2018 11:03 AM CDT) Magnesium 1.8 1.6 - 2.6 mg/dL 09/25/2018 11:31 AM CDT [facility] Blood BLOOD SPECIMEN / Unknown Venipuncture / Unknown 09/25/2018 11:03 AM CDT 09/25/2018 11:06 AM CDT Jf SELLERS LAB - CHEMISTRY ORDERABLES Performing Organization Address [facility] Co de Phone Number [address] [phone] * HCG URINE QUALITATIVE - POCT (IP) INTERFACED (07/05/2018 3:58 PM CDT) Only the most recent of2 resultswithin the time period is included. HCG Qual Urine Negative Negative 07/05/2018 4:01 PM CDT [facility] Urine URINE / Unknown 07/05/2018 3 :58 PM CDT 07/05/2018 4:01 PM CDT Provider Unknown LAB - POINT OF CARE ORDERABLES Performing Organization Address City/[facility]/ZIP Co de Phone Number [facility] [address] [place] [address] * HCG URINE QUAL POCT NOTIFICATION (07/05/2018 3:40 PM CDT) Only the most recent of2 resultswithin the time period is included. Comment Notification Label Only - See Separate Report 07/05/2018 5:00 PM CDT [facility] Urine URINE / Unknown 07/05/2018 3 :40 PM CDT 07/05/2018 3:40 PM CDT Cristofer Dempsey MD LAB - URINALYSIS ORD ERABLES [facility] [address] [place] [address] * (ABNORMAL) SLIDE SCAN HEMATOLOGY (09/19/2017 8:39 AM CDT) Pathologist [facility] Hematology Reflex Status Peripheral Slide Scan verified 09/19/2017 10:20 AM T [facility] Platelet Estimation Adequate platelets Normal, Adequate platelets 09/19/2017 10:20 AM [facility] Clumped Platelets 1+(A) None 09/19/2017 10:20 AM [facility] Blood BLOOD SPECIMEN / Unknown Venipuncture / Unknown 09/19/2017 8:39 AM CDT 09/19/2017 8:45 AM CDT Narrative [facility] - 09/19/2017 10:20 AM CDT Automated platelet count is falsely decreased due to clumping. Andrzej Tipton MD LAB - HEMATOLOGY ORD ERABLES [facility] [address] [place] [address] * (ABNORMAL) BASIC METABOLIC PANEL (CALCIUM TOTAL) (09/19/2017 8:39 AM CDT) [facility] Glucose 79 74 - 106 mg/dL 09/19/2017 9:01 AM [facility] Sodium 136 136 - 145 mmol/L 09/19/2017 9:01 AM [facility] Potassium 4.2 3.5 - 5.1 mmol/L 09/19/2017 9:01 AM [facility] Chloride 106 98 - 107 mmol/L 09/19/2017 9:01 AM [facility] CO2 23 22 - 31 mmol/L 09/19/2017 9:01 AM [facility] Calcium 9.1 8.5 - 10.1 mg/dL 09/19/2017 9:01 AM [facility] Anion Gap 7(L) 8 - 16 mmol/L 09/19/2017 9:01 AM [facility] BUN 11 7 - 21 mg/dL 09/19/2017 9:01 AM CDT [facility] Creatinine 0.59 0.50 - 1.30 mg/dL 09/19/2017 9:01 AM CDT [facility] eGFR by MDRD >60 >60 mL/min/1.7 3m2 09/19/2017 9:01 AM CDT [facility] eGFR by MDRD >60 >60 mL/min/1.7 3m2 09/19/2017 9:01 AM T [facility] Blood BLOOD SPECIMEN / Unknown Venipuncture / Unknown 09/19/2017 8:39 AM CDT 09/19/2017 8:45 AM CDT Andrzej Tipton MD LAB - CHEMISTRY GREGORY RIVERA Performing Organization Address [facility]/ZIP Co de Phone Number [facility] [address] [place] [address] * HEPATIC FUNCTION PANEL (09/19/2017 8:39 AM CDT) Alkaline Phosphatase 38 38 - 126 U/L 09/19/2017 9:28 AM [facility] ALT 24 13 - 61 U/L 09/19/2017 9:28 AM [facility] AST 31 5 - 40 U/L 09/19/2017 9:28 AM [facility] Protein Total 7.7 6.4 - 8.2 gm/dL 09/19/2017 9:28 AM [facility] Albumin 3.4 3.4 - 5.0 gm/dL 09/19/2017 9:28 AM [facility] Bilirubin Total 0.4 0.2 - 1.0 mg/dL 09/19/2017 9:28 AM [facility] Bilirubin Direct <0.1 0 - 0.3 mg/dL 09/19/2017 9:28 AM [facility] Blood BLOOD SPECIMEN / Unknown Venipuncture / Unknown 09/19/2017 8:39 AM CDT 09/19/2017 8:45 AM CDT Seng Love PA-C LAB - PARENT COACH RY ORDERABLES Performing Organization Address City/[facility]/ZIP Co de Phone Number [facility] [address] [place] [address] * US OB LESS THAN 14 WKS W TRANSVAG (09/12/2017 4:46 PM CDT) Anatomical Region Laterality Modality Abdomen Ultrasound 09/12/2017 4:55 PM CDT Impressions 09/12/2017 4:58 PM CDT 1. Viable intrauterine gestation demonstrating normal interval growth from August 22 with a gestational age calculated at 8 weeks and 1 day of gestation. 2. Small subchorionic hemorrhage is identified Reading Radiologist: Silas Rasmussen MD on 09/12/2017 at 4:58 PM Narrative 09/12/2017 4:58 PM CDT OB ultrasound. HISTORY: Bleeding. COMPARISON: August 22. There is a viable intrauterine gestation with spontaneous heart motion activity of 161 bpm. There is an adequate volume of amniotic fluid. A yolk sac is seen. The crown-rump length measures 1.6 compatible with 8 weeks 1 day of gestation. There is a small hypoechoic area peripheral to the gestational sac consistent with subchorionic hemorrhage measuring only about 0.8 x 2.0 cm. The adnexa appear to be normal. There is normal blood flow to each adnexa. There did not appear to be significant free fluid in the cul-de-sac. Procedure Note Silas Rasmussen MD - 09/12/2017 OB ultrasound. HISTORY: Bleeding. COMPARISON: August 22. There is a viable intrauterine gestation with spontaneous heart motion activity of 161 bpm. There is an adequate volume of amniotic fluid. A yolk sac is seen. The crown-rump length measures 1.6 compatible with 8 weeks 1 day of gestation. There is a small hypoechoic area peripheral to the gestational sac consistent with subchorionic hemorrhage measuring only about 0.8 x 2.0 cm. The adnexa appear to be normal. There is normal blood flow to each adnexa. There did not appear to be significant free fluid in the cul-de-sac. IMPRESSION 1. Viable intrauterine gestation demonstrating normal interval growth from August 22 with a gestational age calculated at 8 weeks and 1 day of gestation. 2. Small subchorionic hemorrhage is identified Reading Radiologist: Silas Rasmussen MD on 09/12/2017 at 4:58 PM Ernie Love MD US ORDERABLES * US OB LESS 14 WKS W TRANSV W DOPP (08/22/2017 7:53 PM CDT) Anatomical Region Laterality Modality Ultrasound 08/23/2017 7:58 AM CDT Impressions 08/23/2017 10:14 AM CDT 5.0 mm (MSD) intrauterine fluid collection with no definite contents to suggest a pole or yolk sac at this time. The estimated gestational age (based on the mean sac diameter) is 5 weeks 0 days which which is questionably discrepant compared to the expected gestational age of 5 weeks 6 days based on the LMP. No extrauterine mass is seen to suggest an ectopic gestation. Considerations include an early, not yet visualized, intrauterine versus a blighted ovum versus a recent spontaneous . In addition, a nonvisualized ectopic gestation (with a pseudogestational sac in the uterus) cannot be excluded. Correlation with the serial beta-hCG is recommended with additional followup studies as directed clinically. No other abnormality identified. A preliminary report was generated at the time of the study. Reading Radiologist: Jorge Loomis MD on 08/23/2017 at 10:14 AM Narrative 08/23/2017 10:14 AM CDT Ultrasound pelvis/OB including transvaginal and Doppler evaluation: History: (beta hCG 2624; LMP 07/12/2017 with an EGA of 5 weeks 6 days), pelvic pain, vaginal bleeding. Evaluation of status. Technique: Transabdominal and transvaginal ultrasound of the pelvis/OB was performed on 08/22/2017. Spectral waveform and duplex evaluation of the ovaries was also performed. No relevant prior study is available. Findings: There is an intrauterine fluid collection measuring 5.0 mm in mean sac diameter though no definite contents to suggest a pole or yolk sac are seen at this time. The mean gestational sac diameter gives an estimated gestational age of 5 weeks 0 days which is questionably discrepant compared to the expected gestational age of 6 days based on the LMP. There is no fluid collection identified to suggest a subchorionic hemorrhage and/or hematoma. The uterus is otherwise within normal limits of size, shape and echogenicity with no focal myometrial mass. The uterus measures 9.7 x 5.0 x 4.6 cm in diameter with the endometrial complex measuring 7-8 mm cyst in thickness. The ovaries and adnexal regions are unremarkable with the right ovary measuring 3.4 x 2.8 x 1.9 cm and the left ovary 2.1 x 1.7 x 1.7 cm in diameter. No abnormal extrauterine mass or focal fluid collection is seen to suggest an ectopic gestation. Doppler evaluation shows normal vascular flow to both with no evidence of torsion or increased flow to suggest an inflammatory mass. Procedure Note Jorge Loomis MD - 08/23/2017 Ultrasound pelvis/OB including transvaginal and Doppler evaluation: History: (beta hCG 2624; LMP 07/12/2017 with an EGA of 5 weeks 6 days), pelvic pain, vaginal bleeding. Evaluation of status. Technique: Transabdominal and transvaginal ultrasound of the pelvis/OB was performed on 08/22/2017. Spectral waveform and duplex evaluation of the ovaries was also performed. No relevant prior study is available. Findings: There is an intrauterine fluid collection measuring 5.0 mm in mean sac diameter though no definite contents to suggest a pole or yolk sac are seen at this time. The mean gestational sac diameter gives an estimated gestational age of 5 weeks 0 days which is questionably discrepant compared to the expected gestational age of 6 days based on the LMP. There is no fluid collection identified to suggest a subchorionic hemorrhage and/or hematoma. The uterus is otherwise within normal limits of size, shape and echogenicity with no focal myometrial mass. The uterus measures 9.7 x 5.0 x 4.6 cm in diameter with the endometrial complex measuring 7-8 mm cyst in thickness. The ovaries and adnexal regions are unremarkable with the right ovary measuring 3.4 x 2.8 x 1.9 cm and the left ovary 2.1 x 1.7 x 1.7 cm in diameter. No abnormal extrauterine mass or focal fluid collection is seen to suggest an ectopic gestation. Doppler evaluation shows normal vascular flow to both with no evidence of torsion or increased flow to suggest an inflammatory mass. IMPRESSION 5.0 mm (MSD) intrauterine fluid collection with no definite contents to suggest a pole or yolk sac at this time. The estimated gestational age (based on the mean sac diameter) is 5 weeks 0 days which which is questionably discrepant compared to the expected gestational age of 5 weeks 6 days based on the LMP. No extrauterine mass is seen to suggest an ectopic gestation. Considerations include an early, not yet visualized, intrauterine versus a blighted ovum versus a recent spontaneous . In addition, a nonvisualized ectopic gestation (with a pseudogestational sac in the uterus) cannot be excluded. Correlation with the serial beta-hCG is recommended with additional followup studies as directed clinically. No other abnormality identified. A preliminary report was generated at the time of the study. Reading Radiologist: Jorge Loomis MD on 08/23/2017 at 10:14 AM Enrique Dixon MD ORDERABLES Care Teams Grants Specialist Relationship Specialty Start Date End Date Sheldon Delgado MD Obstetrics and Gynecology 05/23/19
--- OUTSIDE RECORDS SUMMARY | 2024-02-24 19:38 | XMS_ITS | Continuity of Care Document ---
Author Organization [facility] Address [address] [place] [phone] Care Team Providers Care Door Manager Name Role Phone Gayla Barker Primary Care Physician Encounter [facility] Financial Number [id number] Date(s): 02/08/22 - 02/08/[address] [id number] Encounter Diagnosis Acute viral syndrome(Discharge Diagnosis) - 02/08/22 Discharge Disposition: Home or Self Care Attending Physician: Silas Stern MD Allergies, Adverse Reactions, Alerts Substance Reaction Severity Status penicillin Hives Active Medications hydroxychloroquine 0 Start Date: 11/16/21 Status: Ordered predniSONE 0 Start Date: 11/16/21 Status: Ordered Rhinocort Aqua 32 mcg/inh nasal spray 2 spray(s), Nasal, daily, 27 mL, [place], 0, 0, Route to Pharmacy Electronically, [facility], [id number], 157, cm, 02/08/2022 1349, Height, 81, kg, [...] 1 Temperature Temporal Artery [35.8-38 Deg C] 36.6 DegC (02/08/22 1:49 PM) Peripheral Pulse Rate [60-100 bpm] 81 bp m (02/08/22 1:49 PM) Respiratory Rate [14-22 br/min] 16 br/mi n (02/08/22 1:49 PM) Blood Pressure [89-139/60-90 mm Hg] 121/ 74mm Hg (02/08/22 1:49 PM) Height 157 cm (02/08/22 1:49 PM) Social History Social History Type Response Alcohol Former alcohol user Substance Abuse Never drug user Smoking Status Former smoker;Never; Tobacco Cessation Counseling Requested N/A; Type: Cigarettes entered on: 11/16/21 Sex Hospital Discharge Instructions Patient Education 02/08/2022 14:01:59 Viral Syndrome (Adult) Viral Syndrome (Adult) A viral illness may cause a number of symptoms such as fever. Other symptoms depend on the part of the body that the virus affects. If it settles in your nose, throat, and lungs, it may cause cough, sore throat, congestion, runny nose, headache, earache and other ear symptoms, or shortness of breath. If it settles in your stomach and intestinal tract, it may cause nausea, vomiting, cramping, and diarrhea. Sometimes it causes generalized symptoms like aching all over, feeling tired, loss of energy, or loss of appetite. A viral illness usually lasts anywhere from several days to several weeks, but sometimes it lasts longer. In some cases, a more serious infection can look like a viral syndrome in the first few days of the illness. You may need another exam and additional tests to know the difference. Watch for thewarning signs listed below for when to seek medical advice. Home care Follow these guidelines for taking care of yourself at home: ???If symptoms are severe, rest at home for the first 2 to 3 days. ???Stay away from cigarette smoke - both your smoke and the smoke from others. ???You may use bxqq-ayz-hnfstnd??acetaminophen or ibuprofen for fever, muscle aching, and headache,unless another medicine was prescribed for this. If you have chronic liver or kidney disease or ever had a stomach ulcer or gastrointestinal bleeding, talk with your healthcare provider before using these medicines. No one who is younger than 18 and ill with a fever should take aspirin. It may cause severe disease or . ???Your appetite may be poor, so a light diet is fine. Avoid dehydration by drinking 8 to 12, 8-ounce glasses of fluids each day. This may include water; orange juice; lemonade; apple, grape, and cranberry juice; clear fruit drinks; electrolyte replacement and sports drinks; and decaffeinated teas and coffee. If you have been diagnosed with a kidney disease, ask your healthcare provider how much and what types of fluids you should drink to prevent dehydration. If you have kidney disease, drinking too much fluid can cause it build up in the your body and be dangerous to your health. ???Pxbd-sju-rkwagkj remedies won't shorten the length of the illness but may be helpful for symptoms such as cough, sore throat, nasal and sinus congestion, or diarrhea. Don't use decongestants if you have high blood pressure. Follow-up care Follow up with your healthcare provider if you do not improve over the next week. Call 911 Call 911 if any of the following occur: ???Convulsion ???Feeling weak, dizzy, or like you are going to faint ???Chest pain, or more than mild shortness of breath When to seek medical advice Call your healthcare provider right away if any of these occur: ???Cough with lots of colored sputum (mucus) or blood in your sputum ???Chest pain, shortness of breath, wheezing, or trouble breathing ???Severe headache; face, neck, or ear pain ???Severe, constant pain in the lower right side of your belly (abdominal) ???Continued vomiting (can???t keep liquids down) ???Frequent diarrhea (more than 5 times a day); blood (red or black color) or mucus in diarrhea ???Feeling weak, dizzy, or like you are going to faint ???Extreme thirst ???Fever of 100.4??F (38??C) or higher, or as directed by your healthcare provider ?? [id number] [employer]. All rights reserved. This information is not intended as a substitute for professional medical care. Always follow your healthcare professional's instructions. Note * Ernie Payne DO: PERFORM Event Display: [facility] Patient Summary Authored Date: [id number] UMER BOWEN :1990 Visit Date:02/08/2022 [facility] Discharge Instructions Patient Information Name:UMER BOWEN Address: [address] [place] [id number] Sex:Female Date of :1990 Location:[facility] Registration Date and Time:02/08/2022 13:26 PLASTERER FOREMAN Primary Care Physician: Gayla Barker PIT WORKER POWER SHOVEL, Attending Physician: Silas Stern MD, Location Information ?[facility] [place]? Your Diagnosis Diagnosis ?General medical?Reason For Visit ?Acute viral syndrome?Discharge ?? Your Care Team Attending Physician - Silas Stern MD Primary Care Physician - Gayla Barker PIT WORKER POWER SHOVEL Discharge Vitals Vital Signs Height: 157 cm Weight, stated: 81 kg Temperature Temporal Artery: 36.6 DegC Systolic Blood Pressure: 121 mm Hg Diastolic Blood Pressure: 74 mm Hg Peripheral Pulse Rate: 81 bpm Respiratory Rate: 16 br/min Oxygen Saturation: 99 % What's Next? You Need to Schedule the Following Appointments Follow Up with??Gayla Barker NP, Family Medicine When?? Where: [address], [place] [address]- Medications [facility] has provided you with a [...] pharmacist. What How Much When Instructions New budesonide nasal (Rhinocort Aqua 32 mcg/ inh nasal spray) 2 spray(s) Nasal Daily Pickup at [facility] Unchanged hydroxychloroquine Unchanged predniSONE Unchanged sertraline (sertraline 25 mg oral tablet) Pharmacy Information [facility]: [address] [place], [place] [id number] [phone] Medications and Immunizations Administered Medication Administrations ? No Results Found ? Allergies penicillin??(Hives) Labs Test Name Test Result Date/TimeInfluenza A RNA Negative 02/08/2022 13:32 PLASTERER FOREMAN Influenza B RNA Negative 02/08/2022 13:32 PLASTERER FOREMAN SARS-CoV-2 (COVID-19) RNA Negative 02/08/2022 13:32 [facility] [facility] 13:32 PLASTERER FOREMAN Radiology ? COMPLETED RADIOLOGY IMAGING STUDIES: ? No Imaging Results in the last 36 hours Education Materials Viral Syndrome (Adult) A viral illness may cause a number of symptoms such as fever. Other symptoms depend on the part of the body that the virus affects. If it settles in your nose, throat, and lungs, it may cause cough, sore throat, congestion, runny nose, headache, earache and other ear symptoms, or shortness of breath. If it settles in your stomach and intestinal tract, it may cause nausea, vomiting, cramping, and diarrhea. Sometimes it causes generalized symptoms like aching all over, feeling tired, loss of energy, or loss of appetite. A viral illness usually lasts anywhere from several days to several weeks, but sometimes it lasts longer. In some cases, a more serious infection can look like a viral syndrome in the first few days of the illness. You may need another exam and additional tests to know the difference. Watch for thewarning signs listed below for when to seek medical advice. Home care Follow these guidelines for taking care of yourself at home: ???If symptoms are severe, rest at home for the first 2 to 3 days. ???Stay away from cigarette smoke - both your smoke and the smoke from others. ???You may use uchb-veb-zcmaoqq??acetaminophen or ibuprofen for fever, muscle aching, and headache,unless another medicine was prescribed for this. If you have chronic liver or kidney disease or ever had a stomach ulcer or gastrointestinal bleeding, talk with your healthcare provider before using these medicines. No one who is younger than 18 and ill with a fever should take aspirin. It may cause severe disease or . ???Your appetite may be poor, so a light diet is fine. Avoid dehydration by drinking 8 to 12, 8-ounce glasses of fluids each day. This may include water; orange juice; lemonade; apple, grape, and cranberry juice; clear fruit drinks; electrolyte replacement and sports drinks; and decaffeinated teas and coffee. If you have been diagnosed with a kidney disease, ask your healthcare provider how much and what types of fluids you should drink to prevent dehydration. If you have kidney disease, drinking too much fluid can cause it build up in the your body and be dangerous to your health. ???Mmtq-nkd-goulyvb remedies won't shorten the length of the illness but may be helpful for symptoms such as cough, sore throat, nasal and sinus congestion, or diarrhea. Don't use decongestants if you have high blood pressure. Follow-up care Follow up with your healthcare provider if you do not improve over the next week. Call 911 Call 911 if any of the following occur: ???Convulsion ???Feeling weak, dizzy, or like you are going to faint ???Chest pain, or more than mild shortness of breath When to seek medical advice Call your healthcare provider right away if any of these occur: ???Cough with lots of colored sputum (mucus) or blood in your sputum ???Chest pain, shortness of breath, wheezing, or trouble breathing ???Severe headache; face, neck, or ear pain ???Severe, constant pain in the lower right side of your belly (abdominal) ???Continued vomiting (can???t keep liquids down) ???Frequent diarrhea (more than 5 times a day); blood (red or black color) or mucus in diarrhea ???Feeling weak, dizzy, or like you are going to faint ???Extreme thirst ???Fever of 100.4??F (38??C) or higher, or as directed by your healthcare provider ?? [id number] [employer]. All rights reserved. This information is not intended as a substitute for professional medical care. Always follow your healthcare professional's instructions. In need of a Physician? Call [facility] Physician Referral Service [phone]. Thank you for choosing [facility] for your care. [...] follow up instructions and have verbalized understanding. Patient/Van Helper Signature: Provider Signature: Date/Time:02/08/2022 14:02:56 * Ernie Payne DO: PERFORM Event Display: [facility] Note-Physician Authored Date: [facility] Pain Reassessment Entered On: 02/08/2022 14:02 PLASTERER FOREMAN Performed On: 02/08/2022 14:02 PLASTERER FOREMAN by Ernie Payne DO Pain Reassessment Pain Reassessment : N/A Ernie Payne DO - 02/08/2022 14:02 PLASTERER FOREMAN [Electronically Signed on 02/08/2022 02:02 PM PLASTERER FOREMAN] Ernie Payne DO * Ernie Payne DO: PERFORM, SIGN, VERIFY Event Display: [facility] Note-Physician Authored Date: [id number] Patient: UMER BOWEN Age: 31 years Sex: Female : 1990 Associated Diagnoses: None Author: Ernie Payne DO Basic Information Vital signs: Vital Signs 02/08/2022 13:49 PLASTERER FOREMAN Temperature Temporal Artery 36.6 DegC Peripheral Pulse Rate 81 bpm Respiratory Rate 16 br/min Systolic Blood Pressure 121 mm Hg Diastolic Blood Pressure 74 mm Hg , Measurements 02/08/2022 13:49 PLASTERER FOREMAN Height 157 cm Weight, stated 81 kg , Oxygen saturation: Basic Oxygen Information 02/08/2022 13:49 PLASTERER FOREMAN Oxygen Saturation 99 % . Time seen: Date & time 02/08/2022 13:54:00. History source: Patient. Arrival mode: Private vehicle. History limitation: None. Additional information:: Chief Complaint from Nursing Triage Note : Chief Complaint Description 02/08/2022 13:49 PLASTERER FOREMAN Chief Complaint Description Pt states she has been having flu symptoms such asbody aches, chills, headaches. Pt states her boss has covid and her daughter has flu a. Pt wanting testing due to fact she has lupus . History of Present Illness The onset was Patient reports viral symptoms starting yesterday. Patient with fever, body aches, headache and mild fatigue. 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 Patient has ear pressure and mild sore throat.. Review of Systems Constitutional symptoms: Fever. ENMT symptoms: Ear pain, sore throat. Respiratory symptoms: Cough. Musculoskeletal symptoms: Muscle pain. Additional review of systems information: All other systems reviewed and otherwise negative. Health Status Allergies: Allergic Reactions (Selected) Severity Not Documented Penicillin- Hives.. Medications: Per nurse's notes. Past Medical/ Family/ Social History Medical history Problem List from Nurse's Notes All Problems Addisons disease / SNOMED CT 422910677 / Confirmed Depression / SNOMED CT 50348080 / Confirmed Genital herpes / SNOMED CT 38548579 / Confirmed Lupus / SNOMED CT 671567094 / Confirmed. Surgical history: Procedure History from Nurses Notes Appendectomy ([id number]).. Family history: Family History from Nurse's Notes No family history items have been selected or recorded.. Social history: Social History from Nurses Notes Alcohol Details: Former alcohol user Substance Abuse Details: Never drug user Tobacco Details: Former smoker, Smokeless Tobacco use: Never. N/A Cessation Counseling. Cigarettes . Physical Examination General: Alert. mild distress. Skin: Warm. moist. no rash. Head: Normocephalic. atraumatic. Neck: Supple. no tenderness. Eye: Pupils are equal, round and reactive to light. extraocular movements are intact. normal conjunctiva. Ears, nose, mouth and throat: Oral mucosa moist. No pharyngeal erythema or exudate. Bilateral serous effusions noted w/o erythema.. Cardiovascular: Regular rate and rhythm. No murmur. Respiratory: Lungs are clear to auscultation. respirations are non-labored. Chest wall: No tenderness. No deformity. Back: Nontender. Normal range of motion. Testing (repeat). Musculoskeletal: Normal ROM. normal strength. Gastrointestinal: Soft. Nontender. Signs:. Neurological: Alert and oriented to person, place, time, and situation. No focal neurological deficit observed. CN II-XII intact. normal sensory observed. normal motor observed. normal speech observed. Lymphatics: No lymphadenopathy Psychiatric: Cooperative. appropriate mood & affect. Medical Decision Making Differential Diagnosis: Viral syndrome. Rationale Evaluation today including diagnostics, treatment and medical decision making is based onthorough review of nursing notes, past medical/surgical history, and physical exam. Further need for other testing and follow up discussed with patient and further instructions provided upon discharge.. Results review: Lab results : Lab View. Procedure Critical care services delivered? No Impression and Plan Diagnosis Acute viral syndrome : [id number] B34.9, Discharge, Emergency medicine, Medical Discharge plan Condition: Stable. Dispositioned: Time 02/08/2022 13:59:00, To home. Prescriptions: Discharge Medications Pharmacy: Rhinocort Aqua 32 mcg/inh nasal spray (Prescribe): 2 spray(s), Nasal, daily, 27 mL, 0 Refill(s). Patient was given the following educational materials: Viral Syndrome (Adult). Follow up with: Primary Care Physician, In: as needed. Counseled: Patient, Regarding diagnostic results, Regarding treatment plan, Regarding prescription,Patient indicated understanding of instructions. [Electronically Signed on 02/08/2022 02:02 PM PLASTERER FOREMAN] DO Dora Jay Lauren M Baggage Porter: PERFORM Event Display: [employer] consent - Text Authored Date: [id number] [employer] Consent Entered On: 02/08/2022 13:28 PLASTERER FOREMAN Performed On: 02/08/2022 13:28 PLASTERER FOREMAN by Elise Addison Baggage Porter [employer] Consent Consent for Surescripts Granted : Yes Elise Addison Baggage Porter - 02/08/2022 13:28 PLASTERER FOREMAN Nurse Urgent care center Note * Ernie Payne DO: PERFORM Event Display: [facility] Note-Nursing Authored Date: [id number] [facility] Pending Results Entered On: 02/08/2022 14:02 PLASTERER FOREMAN Performed On: 02/08/2022 14:02 PLASTERER FOREMAN by Ernie Payne DO [facility] Pending Results [facility] Pending Order Completion : No Ernie Payne DO - 02/08/2022 14:02 PLASTERER FOREMAN * Jennifer Hassan RN: PERFORM Event Display: [facility] Note-Nursing Authored Date: [id number] Urgent Care Triage Entered On: 02/08/2022 13:52 PLASTERER FOREMAN Performed On: 02/08/2022 13:49 PLASTERER FOREMAN by Jennifer Hassan RN [facility] Triage Chief Complaint Description : Pt states she has been having flu symptoms such as body aches, chills, headaches. Pt states her boss has covid and her daughter has flu a. Pt wanting testing due to factshe has lupus Jennifer Hassan RN - 02/08/2022 13:49 PLASTERER FOREMAN DCP GENERIC CODE Tracking Acuity : 3 - Nonurgent Tracking Group : [place] Tracking [facility] Jennifer Hassan RN - 02/08/2022 13:49 PLASTERER FOREMAN Temperature Temporal Artery : 36.6 DegC(Converted to: 97.9 DegF) Peripheral Pulse Rate : 81 bpm Respiratory Rate : 16 br/min Height : 157 cm(Converted to: 5 ft 2 inch(es)) Systolic/Diastolic BP : 121 mm Hg Systolic/Diastolic BP : 74 mm Hg Weight, Stated : 81 kg(Converted to: 178.574 pound(s)) Oxygen Saturation : 99 % [facility] Oxygen Therapy : Room air Pain Symptoms : No Jennifer Hassan RN - 02/08/2022 13:49 PLASTERER FOREMAN (As Of: 02/08/2022 13:53 PLASTERER FOREMAN) Problems(Active) Addisons disease (SNOMED CT :525753577 ) Name of Problem: Addisons disease ; Recorder: Nishant Arguello RN; Confirmation: Confirmed ; Classification: Patient Stated ; Code: [id number] ; Contributor System: [employer] ; Last Updated: 11/16/2021 10:27 CDT ; Life Cycle Date: 11/16/2021 ; Life Cycle Status: Active ; Vocabulary: SNOMED CT Depression (SNOMED CT :78773812 ) Name of Problem: Depression ; Recorder: Nishant Arguello RN; Confirmation: Confirmed ; Classification: Patient Stated ; Code: [id number] ; Contributor System: [employer] ; Last Updated: 11/16/2021 10:27 CDT ; Life Cycle Date: 11/16/2021 ; Life Cycle Status: Active ; Vocabulary: SNOMED CT Genital herpes (SNOMED CT :86054761 ) Name of Problem: Genital herpes ; Recorder: Minal Arreguin NP; Confirmation: Confirmed ; Classification: Medical ; Code: [id number] ; Contributor System: [employer] ; Last Updated: 08/08/2017 16:00CDT ; Life Cycle Date: 08/08/2017 ; Life Cycle Status: Active ; Vocabulary: SNOMED CT Lupus (SNOMED CT :163438845 ) Name of Problem: Lupus ; Recorder: Nishant Arguello RN; Confirmation: Confirmed ; Classification: Patient Stated ; Code: [id number] ; Contributor System: [employer] ; Last Updated: 11/16/2021 10:27 CDT ; Life Cycle Date: 11/16/2021 ; Life Cycle Status: Active ; Vocabulary: SNOMED CT Diagnoses(Active) General medical Date: 02/08/2022 ; Diagnosis Type: Reason For Visit ; Confirmation: Complaint of ; Clinical Dx: General medical ; Classification: Medical ; Clinical Service: Emergency medicine ; Code: PNED ; Probability: 0 ; Diagnosis Code: [id number] - Procedure History (As Of: 02/08/2022 13:53 PLASTERER FOREMAN) Anesthesia Minutes: 0 ; Procedure Name: Appendectomy ; Procedure Minutes: 0 Document Allergies/Home Meds Anticoagulant Therapy in Last 7 Days : Jennifer Lin RN - 02/08/2022 13:49 PLASTERER FOREMAN (As Of: 02/08/2022 13:53 PLASTERER FOREMAN) Allergies (Active) penicillin Estimated Onset Date: Unspecified ; Reactions: Hives ; Created By: Marlene Cardoza Computer Offset Plate Maker; Reaction Status: Active ; Category: Drug ; Substance: penicillin ; Type: Allergy ; Updated By: Marlene Cardoza Computer Offset Plate Maker; Reviewed Date: 02/08/2022 13:51 PLASTERER FOREMAN Medication List (As Of: 02/08/2022 13:53 PLASTERER FOREMAN) Home Meds hydroxychloroquine : hydroxychloroquine ; Status: [...] Dt/Tm: 11/16/2021 10:26 CDT Screening Infectious Disease Travelled or Contact in last month? : No travel in last month Tuberculosis : No Last 3 Months, Exposed to resp. llness? : Yes Last 3 Months, Had a resp. illness? : Yes Respiratory Risk Assessment : Cough and Fever, Influenza like Illnesses Jennifer Hassan RN - 02/08/2022 13:49 PLASTERER FOREMAN [facility] General Assessment/Social Hx Child/Parent Domestic Concerns : None Special Practices to be Part of Care : No Little interest/pleasure in doing things? : No Feeling down, depressed, or hopeless? : No Barriers to Learning : None evident Preferred Mode of Communication : Verbal Preferred Language of Patient/Caregiver ED : Sami [facility] Call Patient Back : No [facility] Plan of Care Discussed : Yes Jennifer Hassan RN - 02/08/2022 13:49 PLASTERER FOREMAN Social History (As Of: 02/08/2022 13:53 PLASTERER FOREMAN) Tobacco: Former smoker, Smokeless Tobacco use: Never. [...] in Last 3 Months [place] : No Fell Prior to Hospitalization : No Unsteady when Walking/Climbing Stairs? : No Fell During Hospitalization : No Presence of Secondary Diagnosis [place] : No Use of Ambulatory Aid [place] : None, bedrest, wheelchair, nurse IV/Heparin Lock Fall Risk [place] : No Gait Weak or Impaired Fall Risk [place] : Normal, bedrest, immobile Mental Status Fall Risk [place] : Oriented to own ability [place] Fall Risk Score : 0 Jennifer Hassan RN - 02/08/2022 13:49 PLASTERER FOREMAN Novel Coronavirus Assessment Novel Coronavirus Current Fever : Yes Novel Coronavirus Fever 14 days : Yes Novel Coronavirus Exposed COVID 14 days : Yes Novel Coronavirus Previous Outside Labs : No Novel Coronavirus Received Vaccine : Yes Novel Coronavirus Vaccine Type : Pfizer Novel Coronavirus Completed Vac Series : Yes Novel Coronavirus Booster Vaccine Received : No Jennifer Hassan RN - 02/08/2022 13:49 PLASTERER FOREMAN Patient Care team information Care Team Personnel Name: Gayla Barker NP Position: [facility]ANIEL FAX ONLY - MD NOT ON STAFF Member Role: Primary Care Physician Address: Address: [address] [place] [address], [place] [address] [place] Name: Jennifer Hassan RN Position: [facility] Nurse Member Role: ED Nurse Name: Ernie Payne DO Position: [facility] Physician Member Role: ED Physician Address: Address: [address] [address] [place]
--- OUTSIDE RECORDS SUMMARY | 2024-02-24 19:38 | XMS_ITS | Encounter Summary ---
Author Organization [facility] Address [address] [place] [address] Care Team Providers Care Medication Care Manager Name Role Phone Sheldon Delgado MD Unavailable [phone] Huseyin Dangelo MD Primary Care Provider [phone] Reason for Visit * Reason Comments Refill Request Encounter Details Date Type Department Care Team (Late st Contact Info) Description 09/14/2019 Refill [facility] - Rheumatology [address] [place], [place] [id number] Ashlee Magallon MD [address] [place] [phone] Refill Request Social History Tobacco Use Types Packs/Day Years [...] on filedocumented in this encounter Care Teams Medication Care Manager Relationship Specialty Start Date End Date Huseyin Dangelo MD PCP - General 07/29/19 06/15/20 Sheldon Delgado MD Obstetrics and Gynecology 05/23/19 documented as of this encounter
--- OUTSIDE RECORDS SUMMARY | 2024-02-24 19:38 | XMS_ITS | Encounter Summary ---
Author Organization [facility] Address [address] [facility] [place] [address] Care Team Providers Care Telegraph Service Clerk Name Role Phone Sheldon Delgado MD Unavailable [phone] Huseyin Dangelo MD Primary Care Provider [phone] Reason for Visit * Reason Onset Date Comments Appointment 08/30/2022 Encounter Details Date Type Department Care Team (Late st Contact Info) Description 08/30/2022 Telephone [facility] - Hematology/Oncology [address] [place] [id number] Rita Duke, RN Appointment Social History Tobacco Use Types [...] Telephone Encounter - Rita Duke, PRO - 08/30/2022 3:15 PM CDT Contacted patient to set up new patient appointment for anemia referral. Patient states she currently doesn't have insurance. Will speak with RETAIL COORDINATOR and cutting room supervisor to explore options. Rita Duke, RN documented in this encounter Plan of Treatment Not on file documented as of this encounter Visit Diagnoses Not on filedocumented in this encounter Care Teams Telegraph Service Clerk Relationship Specialty [place] [id number] [phone] PCP - General 12/20/20 05/03/23 Sheldon Delgado MD Obstetrics and Gynecology 05/23/19 documented as of this encounter
--- OUTSIDE RECORDS SUMMARY | 2024-02-24 19:38 | XMS_ITS | Clinical Summary ---
Author Organization [facility] Address [address] [place] [address] Care Team Providers Care Paper Guillotine Operator Name Role Phone Sheldon Delgado MD Unavailable [phone] Source Comments [facility],non-owned Affiliates and Associated Physician Practices is amultiple site organization consisting of ambulatory clinics and hospital sitesin [place], [place], [place] and [place]. This disclosure is being madepursuant to the Care Everywhere program and may not contain all information available regarding this patient. Last updated 17.[facility] Allergies Active Allergy Reactions Criticality Noted Date Comments Aripiprazole Other Low 03/30/2020 Escitalopram Other,Rash Medium 11/05/2019 Caused seizures Caused seizures Caused seizures Caused seizures Caused seizures Caused seizures Methylprednisolone Other 07/05/2018 Syncope Penicillins Urticaria,Rash High 01/31/2020 Venlafaxine Itching Low 07/24/2019 Medications * Be aware that medications may not be up to date on this document. Alwaysverify current medications with the patient. Medication Sig Dispensed Refills Start Date End Date Status ALPRAZolam (XANAX) 0.25 MG tablet Take 0.25 mg by mouth 3 times daily as needed for Anxiety Active valACYclovir (VALTREX) 1 GM tablet Take 1 (one) tablet by mouth every 12 hours Active omeprazole (PRILOSEC) 20 MG capsule Take 1 capsule by mouth once daily 30 capsule 2 06/21/2019 Active Additional Information Patient not taking.Reported on 05/04/2023 predniSONE (DELTASONE) 5 MG tablet Take 3 (three) tablets by mouth once daily Active hydroxychloroquine (PLAQUENIL) 200 MG tablet TAKE ONE AND ONE-HALF TABLET DAILY 45 tablet 2 06/21/2019 Active sertraline (ZOLOFT) 25 MG tablet 06/11/2020 Active Active Problems Problem Noted Date Diagnosed Date Systemic lupus erythematosus 01/29/2019 Herpes genitalis 01/29/2019 Overview (01/29/2019): Daily suppressive therapy Family History Medical History Relation Name Comments None Known Father Diabetes - Type 2 Mother Hypertension Mother Arthritis - Rheumatoid Paternal Grandmother Relation Name Status Comments Father Mother Paternal Grandmother Social History Tobacco Use Types Packs/Day Years [...] Comments Blood Pressure 123/69 05/04/2023 12:08 PM HUMAN GEOGRAPHY FACULTY MEMBER Pulse 87 05/04/2023 12:08 PM HUMAN GEOGRAPHY FACULTY MEMBER Temperature 36.9 ??C (98.5 ??F) 05/04/2023 12:[address] Respiratory Rate 18 05/04/2023 12:08 PM HUMAN GEOGRAPHY FACULTY MEMBER Oxygen Saturation 100% 05/04/2023 12:08 PM HUMAN GEOGRAPHY FACULTY MEMBER Inhaled Oxygen Concentration - - Weight 79.8 kg (176 lb) 05/04/2023 12:08 PM HUMAN GEOGRAPHY FACULTY MEMBER Height 160 cm (5' 3 ) 06/16/2020 12:00 PM CDT Body Mass Index 31.18 06/16/2020 12:00 PM CDT Plan of Treatment Health Maintenance Due Date Last Done Comments DTAP/TDAP/TD VACCINES (1 - Tdap) 05/11/2011 HEPATITIS B VACCINE (1 of 3 - 19+ 3-dose series) 05/11/2011 PAP SMEAR 01/29/2022 01/29/2019 COVID-19 VACCINE (2023-2 5 season) 2023 10/12/2020, 05/20/2020 INFLUENZA VACCINE (#1) 2023 ZOSTER VACCINE (1 of 2) 2042 HIV SCREENING Completed 09/25/2018 HEPATITIS C SCREENING Completed 10/08/2018 , 10/08/2018 DEPRESSION SCREENING Completed 05/04/2023 HIB VACCINE Aged Out No longer eligi ble based on patient's age to complete this topic HPV VACCINE Aged Out No longer eligi ble based on patient's age to complete this topic MENINGOCOCCAL VACCINE Aged Out No michelle huseyin eligible based on patient's age to complete this topic PNEUMOCOCCAL VACCINE Aged Out No long er eligible based on patient's age to complete this topic Procedures Procedure Name Priority Date/Time Associated Diagnosis Comments PAP IG RFLX HPV ASCU Routine 01/29/2019 10:41 AM HUMAN GEOGRAPHY FACULTY MEMBER Encounter for gynecological examination with abnormal finding HEPATITIS C ANTIBODY Routine 10/08/2018 10:34 AM CDT Other forms of systemic lupus erythematosus, unspecified organ involvement status (HCC) Polyarthralgia Malaise and fatigue HIV-1 HIV-2 ANTIGEN/ANTIBODY STAT 09/25/2018 11:03 AM CDT from Last 3 Months or Most Recently Relevant to Health Maintenance Results * PAP IG RFLX HPV ASCU (01/29/2019 10:41 AM HUMAN GEOGRAPHY FACULTY MEMBER) Diagnosis [facility] INSURANCE BILL Comment: NEGATIVE FOR INTRAEPITHELIAL LESION OR MALIGNANCY. FUNGAL ORGANISMS MORPHOLOGICALLY CONSISTENT WITH KINGS SPECIES ARE PRESENT. Specimen Adequacy [facility] INSURANCE BILL Comment: Satisfactory for evaluation. ??Endocervical [...] use of an image guided system. Note [facility] INSURANCE BILL Comment: The HPV DNA reflex criteria were not met with this specimen result therefore, no HPV testing was performed. ? . Pathology/Cytolog y PART OF UTERINE CERVIX / Unknown 01/29/2019 10:41 AM HUMAN GEOGRAPHY FACULTY MEMBER 01/29/2019 Narrative [facility] INSURANCE BILL - 01/30/2019 2:35 PM HUMAN GEOGRAPHY FACULTY MEMBER No. of containers..01 ThinPrep Vial Resulting Agency Comment Lab Testing performed at: [address] ??[facility] [id number] Andrey Birch MD LAB - PATHOLOGY/CYTO LOGY ORDERABLES [facility] INSURANCE BILL [address] [place] [address] * HEPATITIS C ANTIBODY (10/08/2018 10:34 AM CDT) Hepatitis C Antibody 0.2 0.0 - 0.9 s/co ratio [facility] ACCOUNT BILL Comment: ? Negative: ? < 0.8 ?Indeterminate: 0.8 - 0.9 ? Positive: ? > 0.9 ? . ?The CDC recommends that a positive HCV antibody result ?be followed up with a HCV Nucleic Acid Amplification ?test ([id number]). Blood BLOOD SPECIMEN / Unknown 10/08/2018 10:34 AM CDT 10/08/2018 Narrative Resulting Agency Comment Lab Testing performed at: [facility] [address] ??[facility] [id number] Ashlee Magallon MD LAB - CHEMISTRY [facility] ACC[facility] B[facility] [address] [place] [address] * HIV-1 HIV-2 ANTIGEN/ANTIBODY (09/25/2018 11:03 AM CDT) HIV Antigen/Antibod y 1 & 2 Non-reacti ve Non-react kaylyn 09/25/2018 12:18 PM CDT [facility] Comment: Neither HIV-1 p24 Antigen nor HIV-1/HIV-2 Antibodies are detected. ? Blood BLOOD SPECIMEN / Unknown Venipuncture / Unknown 09/25/2018 11:03 AM CDT 09/25/2018 11:06 AM CDT Yaquelin Carrion MD LAB - HEMATOLOGY ORD ERABLES [facility] [address] [place] [address] from Last 3 Months or Most Recently Relevant to Health Maintenance Care Teams Paper Guillotine Operator Relationship Specialty Start Date End Date Sheldon Delgado MD Obstetrics and Gynecology 05/23/19
--- OUTSIDE RECORDS SUMMARY | 2024-02-24 19:38 | XMS_ITS | Encounter Summary ---
Author Organization [facility] Address [address] [facility] [place] [address] Care Team Providers Care Core Microarchitect Name Role Phone Sheldon Delgado MD Unavailable [phone] Encounter Details Date Type Department Care Team (Latest Contact Info) Description 07/04/2023 Travel Social History Tobacco Use Types Packs/Day [...] on filedocumented in this encounter Care Teams Core Microarchitect Relationship Specialty Start Date End Date Sheldon Delgado MD Obstetrics and Gynecology 05/23/19 documented as of this encounter
--- OUTSIDE RECORDS SUMMARY | 2024-02-24 19:38 | XMS_ITS | Encounter Summary ---
Author Organization [facility] Address [address] [facility] [place] [address] Care Team Providers Care Warehouse Order Puller Name Role Phone Sheldon Delgado MD Unavailable [phone] Huseyin Dangelo MD Primary Care Provider [phone] Reason for Visit * Reason Comments Refill Request Encounter Details Date Type Department Care Team (Late st Contact Info) Description 10/31/2019 Refill [facility] - Rheumatology [address] [place], [place] [phone] Ashlee Magallon MD [address] [place] [phone] Refill Request Social History Tobacco Use Types [...] on filedocumented in this encounter Care Teams Warehouse Order Puller Relationship Specialty Start Date End Date Huseyin Dangelo MD PCP - General 07/29/19 06/15/20 Sheldon Delgado MD Obstetrics and Gynecology 05/23/19 documented as of this encounter
--- OUTSIDE RECORDS SUMMARY | 2024-02-24 19:38 | XMS_ITS | Data Portability ---
Author Organization [facility] LETINoa Address [address] [place] [address] Care Team Providers Care Packager Name Role Phone JAYDA ULLOA Bulk Pallet Builder VI [phone] Senior Media Director Assessment Encounter Date Assessment Date Assessment LastModified by Organization Details LastModified Time 03/22/2021 03/22/2021 Will continue ocp and follow up as needed. [email or web address] Not available 03/22/2021 15:03:37 Plan of Treatment Reminders Order Date Submit Date Provider Last Modified By Organization Details Last Modified Time Details Appointments NEW PATIE NT 30 2024 01:30P M MOHINDER MCDERMOTT MD Not available Not available Not available Lab cytol ogy repor t, thin prep, smear or scrap ing, cervi ernesto or vagin al 2020 021 [facility], [address] [facility] [address], [place], [address], 03/01/2021 16:10:04 insul in, serum 2021 022 [facility], [address] [facility], [place], [address], 08/06/2021 07:12:06 lh + FSH, serum 2021 022 [facility], [address] [facility] [address], [place], [address], 08/06/2021 07:12:02 proge stero ne, serum 2021 022 [facility], [address], [place], [address], 08/06/2021 07:12:05 testo stero ne, free + total , serum 2021 022 [facility], [address] [facility], [place], [address], 08/06/2021 07:12:03 vitam in B12 + folat e, serum or blood 2021 022 [facility], [address], [place], [address], 08/06/2021 07:12:01 CBC w/ auto diff 2021 022 [facility], [address] [facility], [place], [address], 08/06/2021 07:12:00 vitam in D, 25-hy droxy , total , serum 2021 022 [facility], [address] [facility], [place], [address], 08/06/2021 07:12:04 CMP, serum or plasm a 2021 022 [facility], [address], [place], [address], 08/06/2021 07:12:00 iron + total iron- beth ng capac ity (TIBC ), serum 2021 022 [facility], [address], [place], [address], 08/06/2021 07:12:01 HbA1c (hemo globi n A1c), blood 2021 022 [facility], [address], [place], [address], 08/06/2021 07:12:04 BMP, serum or plasm a 2021 022 [email or web address], [address] [place] [address] 2, [place], [address], 08/03/2021 11:25:53 TSH + free T4, serum 2021 022 [facility], [address] [place] [address] 2, [place], [address], 08/06/2021 07:11:59 ashtyn tin, serum or plasm a 2021 022 [facility], [address] [place] [address] 2, [place], [address], 08/06/2021 07:12:06 rf (rheu matoi d facto r) + anti- ccp abs, serum 2021 022 [facility], [address] [place] [address] 2, [place], [address], 08/06/2021 07:12:03 vagcornel al patho gens panel , SCOT+p nery turner al fluid 2022 023 [facility], [address] [facility], [address], [place], [address], 05/05/2022 16:13:42 urina lysis , dipst ick 2022 023 [facility] In-Office Order, Internal Use Only DO Not Attach Compendium DO Not Attach Compendium, Do Not Delete/merge, [id number] 05/04/2022 09:13:39 Referral gener al surge on refer ral 2021 022 anisha Cooney MD, [address] [facility], [facility] [address], [place], [address], 01/11/2022 09:16:06 Procedures None recor ded. Surgeries None recor ded. Imaging None recor ded. Medication Orders Pleni ty 0.75 gram capsu le 2021 022 [email or web address] Not available 08/04/2022 15:14:01 valac yclov ir 1 gram table t 2021 022 [id number], [address] [place], [address], 08/03/2021 11:34:47 Diflu can 150 mg table t 2022 023 [email or web address] [id number], [address] [place], [address], 07/04/2023 15:07:43 metro nidaz ole 0.75 % (37.5 mg/5 gram) vagin al gel 2022 023 [email or web address] [facility][id number], [address] [place], [address], 08/04/2022 15:13:38 Ozemp ic 0.25 mg or 0.5 mg (2 mg/1. 5 mL) subcu taneo us pen injec tor 2022 023 deldredsmith Not available 08/04/2022 15:13:52 ondan setro n 8 mg disin tegra ting table t 2022 023 [id number], [address] [place], [address], 05/03/2022 14:37:20 nysta tin 100,0 00 unit/ gram topic al powde r 2023 024 [id number], [address] [place], [address], 07/04/2023 15:18:38 Diflu can 150 mg table t 2023 024 [id number], [address] [place], [address], 07/04/2023 15:18:41 terco nazol e 0.8 % vagin al cream 2023 024 [id number], [address] [place], [address], 07/04/2023 15:18:38 Patient TargetsNo targets recorded. Patient Instructions Encounter Date Encounter Id Patient Instructions Last Modified By Organization Details Last Modified Time 03/22/2021 [id number] heavy menstrual periods: care instructions [email or web address] Not available 03/22/2021 15:03:37 08/03/2021 [id number] A healthy lifestyle: care instructions [email or web address] Not available 08/03/2021 11:25:53 Decreased Female Libido: Care Instructions [email or web address] Not available 08/03/2021 11:37:54 fatigue: care instructions [email or web address] Not available 08/03/2021 11:25:52 05/03/2022 [id number] painful urination (dysuria): care instructions [email or web address] Not available 05/03/2022 14:37:16 When You Want to Lose Weight: Care Instructions deldredsmith Not available 05/03/2022 14:37:16 07/04/2023 [id number] A healthy lifestyle: care instructions deldredsmith Not available 07/04/2023 15:18:34 Reason for Referral General Surgeon Referral for Diastasis recti Referring Physician: Jayda Ulloa, Licensed Certified Orthotist, Encounter Date: 08/03/2021 Results Created Date Observation Date Name Description Value Unit Range Abnormal Flag Note LastModifiedBy Organization Detail LastModifiedTime 02/23/20 21 03/01/2021 IGP, RFX APTIM A HPV ASCU diagnosis: Commen t NEGAT FAZAL FOR INTRA EPITH ELIAL LESIO N OR SANIA BERTRAND . THIS SPECI MEN WAS RESCR EENED PART OF OUR QUALI TY CONTR OL PROGR AM. Not Available [facility] ([facility]) [address] [facility], [place], [address], 03/01/2021 16:10:04 02/23/20 21 03/01/2021 IGP, RFX APTIM A HPV ASCU specimen adequacy: Jyothi freeman Satis facto ry for evalu ation . No endoc ervic al compo nent is ident ified . Not Available [facility] ([facility]) [address] [facility], [place], [address], 03/01/2021 16:10:04 02/23/20 21 03/01/2021 IGP, RFX APTIM A HPV ASCU clinician provided ICD10: Jyothi freeman Z01.4 19 Not Available [facility] ([facility]) [address] [place], [address], 03/01/2021 16:10:04 02/23/20 21 03/01/2021 IGP, RFX APTIM A HPV ASCU performed by: Jyothi Aguayo r, Cytot echno logis t (ASCP ) Not Available [facility] ([facility]) [address] [place], [address], 03/01/2021 16:10:04 02/23/20 21 03/01/2021 IGP, RFX APTIM A HPV ASCU QC reviewed by: Jyothi ignacio, Cytot echno logis t (ASCP ) Not Available [facility] ([facility]) [address] [place], [address], 03/01/2021 16:10:04 02/23/20 21 03/01/2021 IGP, RFX APTIM A HPV ASCU . . Not Available [facility] ([facility]) [address] [place], [address], 03/01/2021 16:10:04 02/23/20 21 03/01/2021 IGP, RFX APTIM A HPV ASCU note: Jyothi freeman The Pap smear is a scree neftaly test frank lopez to aid in the detec tion of ann ligna nt and malig nant condi tions of the uteri ne cervi x. It is not a diagn ostic proce dure and shoul d not be used as the sole means of detec ting cervi ernesto cance r. Both false -posi tive and false -nega tive repor ts do occur . Not Available [facility] ([facility]) [address] [place], [address], 03/01/2021 16:10:04 02/23/20 21 03/01/2021 IGP, RFX APTIM A HPV ASCU test methodology: Commen t This liqui d based ThinP rep(R ) pap test was devin lopez with the use of an image guide grant solano. Not Available [facility] ([facility]) [address] [place], [address], 03/01/2021 16:10:04 02/23/20 21 03/01/2021 IGP, RFX APTIM A HPV ASCU . Commen t The HPV DNA refle x crite annalise were not met with this speci men resul t there fore, no HPV testi ng was perfo rmed. Not Available [facility] ([facility]) [address] [place], [address], 03/01/2021 16:10:04 08/04/19 22 08/04/2021 TSH+F REE T4 TSH 1.230 uIU/m L 0.450- 4.500 Not Available [facility] ([facility]) [address] [place], [address], 08/06/2021 07:11:59 08/04/19 22 08/04/2021 TSH+F REE T4 T4,free(dire ct) 1.07 NG/dL 0.82-1 .77 Not Available [facility] ([facility]) [address] [place], [address], 08/06/2021 07:11:59 08/04/19 22 08/04/2021 CBC WITH DIFFE RENTI AL/PL ATELE T WBC 6.8 x10e3 /uL 3.4-10 .8 Not Available [facility] ([facility]) [address] [place], [address], 08/06/2021 07:11:59 08/04/19 22 08/04/2021 CBC WITH DIFFE RENTI AL/PL ATELE T RBC 4.07 x10e6 /uL 3.77-5 .28 Not Available [facility] ([facility]) [address] [place], [address], 08/06/2021 07:11:59 08/04/19 22 08/04/2021 CBC WITH DIFFE RENTI AL/PL ATELE T hemoglobin 9.7 g/dL 11.1-1 5.9 below low normal Not Available [facility] ([facility]) [address] [place], [address], 08/06/2021 07:11:59 08/04/19 22 08/04/2021 CBC WITH DIFFE RENTI AL/PL ATELE T hematocrit 30.8 % 34.0-4 6.6 below low normal Not Available [facility] ([facility]) [address] [place], [address], 08/06/2021 07:11:59 08/04/19 22 08/04/2021 CBC WITH DIFFE RENTI AL/PL ATELE T MCV 76 fL 79-97 below low normal Not Available [facility] ([facility]) [address] [place], [address], 08/06/2021 07:11:59 08/04/19 22 08/04/2021 CBC WITH DIFFE RENTI AL/PL ATELE T MCH 23.8 pg 26.6-3 3.0 below low normal Not Available [facility] ([facility]) [address] [place], [address], 08/06/2021 07:11:59 08/04/19 22 08/04/2021 CBC WITH DIFFE RENTI AL/PL ATELE T MCHC 31.5 g/dL 31.5-3 5.7 Not Available [facility] ([facility]) [address] [facility], [place], [address], 08/06/2021 07:11:59 08/04/19 22 08/04/2021 CBC WITH DIFFE RENTI AL/PL ATELE T RDW 15.6 % 11.7-1 5.4 above high normal Not Available [facility] ([facility]) [address] [facility], [place], [address], 08/06/2021 07:11:59 08/04/19 22 08/04/2021 CBC WITH DIFFE RENTI AL/PL ATELE T platelets 344 x10e3 /uL 150-45 0 Not Available [facility] ([facility]) [address] [facility], [place], [address], 08/06/2021 07:11:59 08/04/19 22 08/04/2021 CBC WITH DIFFE RENTI AL/PL ATELE T neutrophils 67 % not estab. Not Available [facility] ([facility]) [address] [facility], [place], [address], 08/06/2021 07:11:59 08/04/19 22 08/04/2021 CBC WITH DIFFE RENTI AL/PL ATELE T lymphs 23 % not estab. Not Available [facility] ([facility]) [address] [place], [address], 08/06/2021 07:11:59 08/04/19 22 08/04/2021 CBC WITH DIFFE RENTI AL/PL ATELE T monocytes 7 % not estab. Not Available [facility] ([facility]) [address] [place], [address], 08/06/2021 07:11:59 08/04/19 22 08/04/2021 CBC WITH DIFFE RENTI AL/PL ATELE T eos 2 % not estab. Not Available [facility] ([facility]) [address] [place], [address], 08/06/2021 07:11:59 08/04/19 22 08/04/2021 CBC WITH DIFFE RENTI AL/PL ATELE T basos 1 % not estab. Not Available [facility] (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) [address] [place], [address], 08/06/2021 07:11:59 08/04/19 22 08/04/2021 CBC WITH DIFFE RENTI AL/PL ATELE T neutrophils (absolute) 4.6 x10e3 /uL 1.4-7. 0 Not Available [facility] ([facility]) [address] [place], [address], 08/06/2021 07:11:59 08/04/19 22 08/04/2021 CBC WITH DIFFE RENTI AL/PL ATELE T lymphs (absolute) 1.6 x10e3 /uL 0.7-3. 1 Not Available [facility] ([facility]) [address] [place], [address], 08/06/2021 07:11:59 08/04/19 22 08/04/2021 CBC WITH DIFFE RENTI AL/PL ATELE T monocytes(ab solute) 0.5 x10e3 /uL 0.1-0. 9 Not Available [facility] ([facility]) [address] [place], [address], 08/06/2021 07:11:59 08/04/19 22 08/04/2021 CBC WITH DIFFE RENTI AL/PL ATELE T eos (absolute) 0.1 x10e3 /uL 0.0-0. 4 Not Available [facility] ([facility]) [address] [place], [address], 08/06/2021 07:11:59 08/04/19 22 08/04/2021 CBC WITH DIFFE RENTI AL/PL ATELE T baso (absolute) 0.0 x10e3 /uL 0.0-0. 2 Not Available [facility] ([facility]) [address] [place], [address], 08/06/2021 07:11:59 08/04/19 22 08/04/2021 CBC WITH DIFFE RENTI AL/PL ATELE T immature granulocytes 0 % not estab. Not Available [facility] ([facility]) [address] [place], [address], 08/06/2021 07:11:59 08/04/19 22 08/04/2021 CBC WITH DIFFE RENTI AL/PL ATELE T immature grans (abs) 0.0 x10e3 /uL 0.0-0. 1 Not Available [facility] (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) [address] [place], [address], 08/06/2021 07:11:59 08/04/19 22 08/04/2021 COMP. METAB OLIC PANEL (14) glucose 83 mg/dL 65-99 Not Available [facility] ([facility]) [address] [place], [address], 08/06/2021 07:12:00 08/04/19 22 08/04/2021 COMP. METAB OLIC PANEL (14) BUN 10 mg/dL 6-20 Not Available [facility] ([facility]) [address] [facility] [place], [address], 08/06/2021 07:12:00 08/04/19 22 08/04/2021 COMP. METAB OLIC PANEL (14) creatinine 0.70 mg/dL 0.57-1 .00 Not Available [facility] ([facility]) [address] [facility] [place], [address], 08/06/2021 07:12:00 08/04/19 22 08/04/2021 COMP. METAB OLIC PANEL (14) eGFR 120 mL/mi n/1.7 3 >59 Not Available [facility] ([facility]) [address] [facility] [place], [address], 08/06/2021 07:12:00 08/04/19 22 08/04/2021 COMP. METAB OLIC PANEL (14) BUN/creatini ne ratio 14 9-23 Not Available [facility]) [address] [facility] [place], [address], 08/06/2021 07:12:00 08/04/19 22 08/04/2021 COMP. METAB OLIC PANEL (14) sodium 138 mmol/ L 134-14 4 Not Available [facility] ([facility]) [address] [facility] [place], [address], 08/06/2021 07:12:00 08/04/19 22 08/04/2021 COMP. METAB OLIC PANEL (14) potassium 4.1 mmol/ L 3.5-5. 2 Not Available [facility]) [address] [facility] [place], [address], 08/06/2021 07:12:00 08/04/19 22 08/04/2021 COMP. METAB OLIC PANEL (14) chloride 102 mmol/ L 96-106 Not Available [facility]) [address] [facility] [place], [address], 08/06/2021 07:12:00 08/04/19 22 08/04/2021 COMP. METAB OLIC PANEL (14) carbon dioxide, total 21 mmol/ L 20-29 Not Available [facility]) [address] [facility] [place], [address], 08/06/2021 07:12:00 08/04/19 22 08/04/2021 COMP. METAB OLIC PANEL (14) calcium 9.3 mg/dL 8.7-10 .2 Not Available [facility]) [address] [facility] [place], [address], 08/06/2021 07:12:00 08/04/19 22 08/04/2021 COMP. METAB OLIC PANEL (14) protein, total 7.3 g/dL 6.0-8. 5 Not Available [facility]) [address] [facility] [place], [address], 08/06/2021 07:12:00 08/04/19 22 08/04/2021 COMP. METAB OLIC PANEL (14) albumin 4.5 g/dL 3.9-5. 0 Not Available [facility] ([facility]) [address] [facility] [place], [address], 08/06/2021 07:12:00 08/04/19 22 08/04/2021 COMP. METAB OLIC PANEL (14) globulin, total 2.8 g/dL 1.5-4. 5 Not Available [facility] ([facility]) [address] [facility] [place], [address], 08/06/2021 07:12:00 08/04/19 22 08/04/2021 COMP. METAB OLIC PANEL (14) A/G ratio 1.6 1.2-2. 2 Not Available [facility] ([facility]) [address] [place], [address], 08/06/2021 07:12:00 08/04/19 22 08/04/2021 COMP. METAB OLIC PANEL (14) bilirubin, total 0.5 mg/dL 0.0-1. 2 Not Available [facility] ([facility]) [address] [place], [address], 08/06/2021 07:12:00 08/04/19 22 08/04/2021 COMP. METAB OLIC PANEL (14) alkaline phosphatase 57 IU/L 44-121 Not Available [facility]) [address] [place], [address], 08/06/2021 07:12:00 08/04/19 22 08/04/2021 COMP. METAB OLIC PANEL (14) AST (SGOT) 13 IU/L 0-40 Not Available [facility] ([facility]) [address] [place], [address], 08/06/2021 07:12:00 08/04/19 22 08/04/2021 COMP. METAB OLIC PANEL (14) ALT (SGPT) 10 IU/L 0-32 Not Available [facility]) [address] [place], [address], 08/06/2021 07:12:00 08/04/19 22 08/04/2021 IRON AND TIBC iron bind.cap.(TI BC) 378 ug/dL 250-45 0 Not Available [facility] ([facility]) [address] [place], [address], 08/06/2021 07:12:01 08/04/19 22 08/04/2021 IRON AND TIBC UIBC 343 ug/dL 131-42 5 Not Available [facility] ([facility]) [address] [facility] [place], [address], 08/06/2021 07:12:01 08/04/19 22 08/04/2021 IRON AND TIBC iron 35 ug/dL 27-159 Not Available [facility] ([facility]) [address] [place], [address], 08/06/2021 07:12:01 08/04/19 22 08/04/2021 IRON AND TIBC iron saturation 9 % 15-55 alert low Not Available [facility]) [address] [facility] [place], [address], 08/06/2021 07:12:01 08/04/19 22 08/04/2021 VITAM IN B12 AND FOLAT E vitamin B12 529 pg/mL 232-12 45 Not Available [facility] ([facility]) [address] [place], [address], 08/06/2021 07:12:01 08/04/19 22 08/04/2021 VITAM IN B12 AND FOLAT E folate (folic acid), serum 8.6 NG/mL >3.0 A serum folat e corwin ntrat ion of less than 3.1 ng/mL is consi dered to repre sent clini ernesto defic iency . Not Available [facility] ([facility]) [address] [place], [address], 08/06/2021 07:12:01 08/04/19 22 08/04/2021 FSH AND LH LH 4.0 mIU/m L Adult Femal e: Folli cular phase 2.4 - 12.6 Ovula tion phase 14.0 - 95.6 Lutea l phase 1.0 - 11.4 Postm enopa usal 7.7 - 58.5 Not Available [facility] ([facility]) [address] [place], [address], 08/06/2021 07:12:02 08/04/19 22 08/04/2021 FSH AND LH FSH 2.7 mIU/m L Adult Femal e: Folli cular phase 3.5 - 12.5 Ovula tion phase 4.7 - 21.5 Lutea l phase 1.7 - 7.7 Postm enopa usal 25.8 - 134.8 Not Available [facility] ([facility]) [address] [place], [address], 08/06/2021 07:12:02 08/04/19 22 08/04/2021 TESTO STERO NE,FR EE AND TOTAL testosterone <3 NG/dL 13-71 below low normal Not Available [facility] ([facility]) [address] [place], [address], 08/06/2021 07:12:03 08/04/19 22 08/06/2021 TESTO STERO NE,FR EE AND TOTAL free testosterone (direct) <0.2 pg/mL 0.0-4. 2 Not Available [facility] ([facility]) [address] [place], [address], 08/06/2021 07:12:03 08/04/19 22 08/04/2021 RHEUM ATOID ARTHR ITIS PROFI LE rheumatoid factor (rf) <10.0 IU/mL <14.0 Not Available [facility] ([facility]) [address] [place], [address], 08/06/2021 07:12:03 08/04/19 22 08/05/2021 RHEUM ATOID ARTHR ITIS PROFI LE anti-ccp Ab, IgG/IgA 8 units 0-19 Negat fazal <20 Weak posit fazal 20 - 39 Moder ate posit fazal 40 - 59 Stron g posit fazal >59 Not Available [facility] ([facility]) [address] [place], [address], 08/06/2021 07:12:03 08/04/19 22 08/04/2021 HEMOG LOBIN A1C hemoglobin A1C 5.5 % 4.8-5. 6 Predi abete s: 5.7 - 6.4 Diabe casey: >6.4 Glyce marie contr ol for adult s with diabe casey: <7.0 Not Available [facility] ([facility]) [address] [facility], [place], [address], 08/06/2021 07:12:04 08/04/19 22 08/04/2021 VITAM IN D, 25-HY DROXY vitamin D, 25-hydroxy 22.2 NG/mL 30.0-1 00.0 below low normal Vitam in D defic iency has been defin ed by the Insti tute of Medic ine and an Endoc rine Socie ty pract ice guide line as a level of serum 25-OH vitam in D less than 20 ng/mL (1,2) . The Endoc rine Socie ty went on to furth er defin e vitam in D insuf ficie ncy as a level betwe en 21 and 29 ng/mL (2). 1. IOM (Inst itute of Medic ine). 2009. Dieta ry refer ence intak es for calci um and D. Bobby aldana [place]: The [facility] . 2. Siri gerber MF, Jeffrey henderson [place], Lydia off-F errar i [place]LTON, et al. Evalu ation , treat ment, and preve ntion of vitam in D defic iency : an Endoc rine Socie ty clini ernesto pract ice guide line. JCEM. 2010; 96(7) :1911 -30. Not Available [facility] ([facility]) [address] [facility], [place], [address], 08/06/2021 07:12:04 08/04/19 22 08/04/2021 PROGE STERO NE progesterone 20.8 NG/mL Folli cular phase 0.1 - 0.9 Lutea l phase 1.8 - 23.9 Ovula tion phase 0.1 - 12.0 Pregn ant First trime ster 11.0 - 44.3 Secon d trime ster 25.4 - 83.3 Third trime ster 58.7 - 214.0 Postm enopa usal 0.0 - 0.1 Not Available [facility] ([facility]) [address] [place], [address], 08/06/2021 07:12:05 08/04/19 22 08/04/2021 INSUL IN insulin 12.5 uIU/m L 2.6-24 .9 Not Available [facility] ([facility]) [address] [place], [address], 08/06/2021 07:12:06 08/04/19 22 08/04/2021 ASHTYN TIN ferritin 5 NG/mL 15-150 below low normal Not Available [facility] ([facility]) [address] [place], [address], 08/06/2021 07:12:06 05/04/19 23 05/05/2022 NUSWA B VAGIN ITIS PLUS (VG+) atopobium vaginae Low - 0 score Not Available [facility] ([facility]) [address] [facility], [place], [address], 05/05/2022 16:13:42 05/04/19 23 05/05/2022 NUSWA B VAGIN ITIS PLUS (VG+) bvab 2 Low - 0 score Not Available [facility] ([facility]) [address] [place], [address], 05/05/2022 16:13:42 05/04/19 23 05/05/2022 NUSWA B VAGIN ITIS PLUS (VG+) megasphaera 1 Low - 0 score Calcu late total score by collin alvarez the 3 indiv idual bacte rial vagin osis (BV) marke r score s toget her. Total score is inter prete d as follo ws: Total score 0-1: Indic ates the absen ce of BV. Total score 2: Indet ermin ate for BV. Addit ional clini ernesto data shoul d be evalu ated to estab belkis soto osis. Total score 3-6: Indic ates the prese nce of BV. This test was bucky gonzales and its perfo tyson e louie yiri stics deter mined by [facility]. It has not been clear ed or appro maulik by the Food and Drug Admin istra tion. Not Available [facility] ([facility]) [address] [place], [address], 05/05/2022 16:13:42 05/04/19 23 05/05/2022 NUSWA B VAGIN ITIS PLUS (VG+) bruce albicans, SCOT Positi ve negati ve abnormal Not Available [facility] ([facility]) [address] [place], [address], 05/05/2022 16:13:42 05/04/19 23 05/05/2022 NUSWA B VAGIN ITIS PLUS (VG+) bruce glabrata, SCOT Negati ve negati ve Not Available [facility] ([facility]) [address] [place], [address], 05/05/2022 16:13:42 05/04/19 23 05/05/2022 NUSWA B VAGIN ITIS PLUS (VG+) trich vag by SCOT Negati ve negati ve Not Available [facility] ([facility]) [address] [place], [address], 05/05/2022 16:13:42 05/04/19 23 05/05/2022 NUSWA B VAGIN ITIS PLUS (VG+) chlamydia trachomatis, SCOT Negati ve negati ve Not Available [facility] ([facility]) [address] [place], [address], 05/05/2022 16:13:42 05/04/19 23 05/05/2022 NUSWA B VAGIN ITIS PLUS (VG+) neisseria gonorrhoeae, SCOT Negati ve negati ve Not Available [facility] ([facility]) [address] [place], [address], 05/05/2022 16:13:42 06/23/1906/23/2022 VITAM IN B12 AND FOLAT E vitamin B12 414 pg/mL 232-12 45 Not Available [facility] ([facility]) [address] [place], [address], 06/23/2022 07:14:27 06/23/19 23 06/23/2022 VITAM IN B12 AND FOLAT E folate (folic acid), serum 5.4 NG/mL >3.0 A serum folat e corwin ntrat ion of less than 3.1 ng/mL is consi dered to repre sent clini ernesto defic iency . Not Available [facility] ([facility]) [address] [place], [address], 06/23/2022 07:14:27 06/23/19 23 06/23/2022 IRON AND TIBC iron bind.cap.(TI BC) 370 ug/dL 250-45 0 Not Available [facility] ([facility]) [address] [place], [address], 06/23/2022 07:14:28 06/23/19 23 06/23/2022 IRON AND TIBC UIBC 356 ug/dL 131-42 5 Not Available [facility] ([facility]) [address] [place], [address], 06/23/2022 07:14:28 06/23/19 23 06/23/2022 IRON AND TIBC iron 14 ug/dL 27-159 below low normal Not Available [facility] ([facility]) [address] [place], [address], 06/23/2022 07:14:28 06/23/19 23 06/23/2022 IRON AND TIBC iron saturation 4 % 15-55 alert low Not Available [facility] ([facility]) [address] [place], [address], 06/23/2022 07:14:28 06/23/19 23 06/23/2022 ASHTYN TIN ferritin 5 NG/mL 15-150 below low normal Not Available [facility] ([facility]) [address] [facility], [place], [address], 06/23/2022 07:14:28 06/23/19 23 06/23/2022 RETIC ULOCY TE COUNT reticulocyte count 1.6 % 0.6-2. 6 Not Available [facility] ([facility]) [address] [facility], [place], [address], 06/23/2022 07:14:29 06/23/19 23 06/23/2022 COMP. METAB OLIC PANEL (14) glucose 89 mg/dL 70-99 Not Available [facility] ([facility]) [address] [facility] [place], [address], 06/23/2022 07:14:32 06/23/19 23 06/23/2022 COMP. METAB OLIC PANEL (14) BUN 18 mg/dL 6-20 Not Available [facility] ([facility]) [address] [place], [address], 06/23/2022 07:14:32 06/23/19 23 06/23/2022 COMP. METAB OLIC PANEL (14) creatinine 0.68 mg/dL 0.57-1 .00 Not Available [facility] ([facility]) [address] [place], [address], 06/23/2022 07:14:32 06/23/19 23 06/23/2022 COMP. METAB OLIC PANEL (14) eGFR 120 mL/mi n/1.7 3 >59 Not Available [facility] ([facility]) [address] [facility] [place], [address], 06/23/2022 07:14:32 06/23/19 23 06/23/2022 COMP. METAB OLIC PANEL (14) BUN/creatini ne ratio 26 9-23 above high normal Not Available [facility] ([facility]) [address] [facility] [place], [address], 06/23/2022 07:14:32 06/23/19 23 06/23/2022 COMP. METAB OLIC PANEL (14) sodium 141 mmol/ L 134-14 4 Not Available [facility] ([facility]) [address] [facility] [place], [address], 06/23/2022 07:14:32 06/23/19 23 06/23/2022 COMP. METAB OLIC PANEL (14) potassium 4.6 mmol/ L 3.5-5. 2 Not Available [facility] ([facility]) [address] [facility], [place], [address], 06/23/2022 07:14:32 06/23/19 23 06/23/2022 COMP. METAB OLIC PANEL (14) chloride 103 mmol/ L 96-106 Not Available [facility] ([facility]) [address] [facility] [place], [address], 06/23/2022 07:14:32 06/23/19 23 06/23/2022 COMP. METAB OLIC PANEL (14) carbon dioxide, total 21 mmol/ L 20-29 Not Available [facility] ([facility]) [address] [facility] [place], [address], 06/23/2022 07:14:32 06/23/19 23 06/23/2022 COMP. METAB OLIC PANEL (14) calcium 9.9 mg/dL 8.7-10 .2 Not Available [facility] ([facility]) [address] [facility] [place], [address], 06/23/2022 07:14:32 06/23/19 23 06/23/2022 COMP. METAB OLIC PANEL (14) protein, total 7.3 g/dL 6.0-8. 5 Not Available [facility] ([facility]) [address], [place], [address], 06/23/2022 07:14:32 06/23/19 23 06/23/2022 COMP. METAB OLIC PANEL (14) albumin 4.7 g/dL 3.9-5. 0 Not Available [facility] ([facility]) [address], [place], [address], 06/23/2022 07:14:32 06/23/19 23 06/23/2022 COMP. METAB OLIC PANEL (14) globulin, total 2.6 g/dL 1.5-4. 5 Not Available [facility] ([facility]) [address] [place], [address], 06/23/2022 07:14:32 06/23/19 23 06/23/2022 COMP. METAB OLIC PANEL (14) A/G ratio 1.8 1.2-2. 2 Not Available [facility] ([facility]) [address], [place], [address], 06/23/2022 07:14:32 06/23/19 23 06/23/2022 COMP. METAB OLIC PANEL (14) bilirubin, total <0.2 mg/dL 0.0-1. 2 Not Available [facility] ([facility]) [address] [place], [address], 06/23/2022 07:14:32 06/23/19 23 06/23/2022 COMP. METAB OLIC PANEL (14) alkaline phosphatase 47 IU/L 44-121 Not Available [facility] ([facility]) [address] [place], [address], 06/23/2022 07:14:32 06/23/19 23 06/23/2022 COMP. METAB OLIC PANEL (14) AST (SGOT) 14 IU/L 0-40 Not Available [facility] ([facility]) [address] [place], [address], 06/23/2022 07:14:32 06/23/19 23 06/23/2022 COMP. METAB OLIC PANEL (14) ALT (SGPT) 11 IU/L 0-32 Not Available [facility] ([facility]) [address] [facility], [place], [address], 06/23/2022 07:14:32 06/23/19 23 06/23/2022 CBC WITH DIFFE RENTI AL/PL ATELE T WBC 8.9 x10e3 /uL 3.4-10 .8 Not Available [facility] ([facility]) [address] [place], [address], 06/23/2022 07:14:32 06/23/19 23 06/23/2022 CBC WITH DIFFE RENTI AL/PL ATELE T RBC 4.18 x10e6 /uL 3.77-5 .28 Not Available [facility] ([facility]) [address] [place], [address], 06/23/2022 07:14:32 06/23/19 23 06/23/2022 CBC WITH DIFFE RENTI AL/PL ATELE T hemoglobin 9.6 g/dL 11.1-1 5.9 below low normal Not Available [facility] ([facility]) [address] [place], [address], 06/23/2022 07:14:32 06/23/19 23 06/23/2022 CBC WITH DIFFE RENTI AL/PL ATELE T hematocrit 31.6 % 34.0-4 6.6 below low normal Not Available [facility] ([facility]) [address] [place], [address], 06/23/2022 07:14:32 06/23/19 23 06/23/2022 CBC WITH DIFFE RENTI AL/PL ATELE T MCV 76 fL 79-97 below low normal Not Available [facility] ([facility]) [address] [place], [address], 06/23/2022 07:14:32 06/23/19 23 06/23/2022 CBC WITH DIFFE RENTI AL/PL ATELE T MCH 23.0 pg 26.6-3 3.0 below low normal Not Available [facility] ([facility]) [address] [facility], [place], [address], 06/23/2022 07:14:32 06/23/19 23 06/23/2022 CBC WITH DIFFE RENTI AL/PL ATELE T MCHC 30.4 g/dL 31.5-3 5.7 below low normal Not Available [facility] ([facility]) [address] [place], [address], 06/23/2022 07:14:32 06/23/19 23 06/23/2022 CBC WITH DIFFE RENTI AL/PL ATELE T RDW 17.3 % 11.7-1 5.4 above high normal Not Available [facility] ([facility]) [address] [place], [address], 06/23/2022 07:14:32 06/23/19 23 06/23/2022 CBC WITH DIFFE RENTI AL/PL ATELE T platelets 324 x10e3 /uL 150-45 0 Not Available [facility] ([facility]) [address] [place], [address], 06/23/2022 07:14:32 06/23/19 23 06/23/2022 CBC WITH DIFFE RENTI AL/PL ATELE T neutrophils 87 % notest ab. Not Available [facility] ([facility]) [address] [place], [address], 06/23/2022 07:14:32 06/23/19 23 06/23/2022 CBC WITH DIFFE RENTI AL/PL ATELE T lymphs 10 % notest ab. Not Available [facility] ([facility]) [address] [place], [address], 06/23/2022 07:14:32 06/23/19 23 06/23/2022 CBC WITH DIFFE RENTI AL/PL ATELE T monocytes 3 % notest ab. Not Available [facility] ([facility]) [address] [facility], [place], [address], 06/23/2022 07:14:32 06/23/19 23 06/23/2022 CBC WITH DIFFE RENTI AL/PL ATELE T eos 0 % notest ab. Not Available [facility] ([facility]) [address] [facility], [place], [address], 06/23/2022 07:14:32 06/23/19 23 06/23/2022 CBC WITH DIFFE RENTI AL/PL ATELE T basos 0 % notest ab. Not Available [facility] ([facility]) [address] [place], [address], 06/23/2022 07:14:32 06/23/19 23 06/23/2022 CBC WITH DIFFE RENTI AL/PL ATELE T neutrophils (absolute) 7.6 x10e3 /uL 1.4-7. 0 above high normal Not Available [facility] ([facility]) [address] [place], [address], 06/23/2022 07:14:32 06/23/19 23 06/23/2022 CBC WITH DIFFE RENTI AL/PL ATELE T lymphs (absolute) 0.9 x10e3 /uL 0.7-3. 1 Not Available [facility] ([facility]) [address] [place], [address], 06/23/2022 07:14:32 06/23/19 23 06/23/2022 CBC WITH DIFFE RENTI AL/PL ATELE T monocytes(ab solute) 0.3 x10e3 /uL 0.1-0. 9 Not Available [facility] ([facility]) [address] [facility] [place], [address], 06/23/2022 07:14:32 06/23/19 23 06/23/2022 CBC WITH DIFFE RENTI AL/PL ATELE T eos (absolute) 0.0 x10e3 /uL 0.0-0. 4 Not Available [facility] ([facility]) [address] [facility], [place], [address], 06/23/2022 07:14:32 06/23/19 23 06/23/2022 CBC WITH DIFFE RENTI AL/PL ATELE T baso (absolute) 0.0 x10e3 /uL 0.0-0. 2 Not Available [facility] ([facility]) [address] [facility], [place], [address], 06/23/2022 07:14:32 06/23/19 23 06/23/2022 CBC WITH DIFFE RENTI AL/PL ATELE T immature granulocytes 0 % notest ab. Not Available [facility] ([facility]) [address] [facility], [place], [address], 06/23/2022 07:14:32 06/23/1906/23/2022 CBC WITH DIFFE RENTI AL/PL ATELE T immature grans (abs) 0.0 x10e3 /uL 0.0-0. 1 Not Available [facility] ([facility]) [address] [facility], [place], [address], 06/23/2022 07:14:32 05/25/19 CT, angio gram, chest + abdom en + pelvi s, w/ contr ast No observ ation record ed. [email or web address] Not Available 2022 11:35:16 Result Notes None recorded. 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 MOHINDER MCDERMOTT MD Attn: Accounting ,[address] [place], [address] , [place] [facility] 4 11:36:45 Generalized anxiety disorder 56647861 Active 2023 MOHINDER MCDERMOTT MD Attn: Accounting ,[address] [place], [address] , [place] [facility] 4 11:36:32 Attention deficit hyperactivi ty disorder 985241465 Active 2023 MOHINDER MCDERMOTT MD Attn: Accounting ,[address] [place], [address] , [place] - [facility] 4 11:36:36 Epilepsy 62508628 Active 2023 MOHINDER MCDERMOTT MD Attn: Accounting ,[address] [place], [address] , [place] - [facility] 4 11:36:42 Testosteron e level below reference range 921358864 Active 2023 Last checked in 2021 MOHINDER MCDERMOTT MD Attn: Accounting ,[address] [place], [address] , [place] - [facility] 4 11:37:05 Microcytic anemia 305413101 Active 2023 MOHINDER MCDERMOTT MD Attn: Accounting ,[address] [place], [address] , [place] - [facility] 4 11:37:49 Vitamin D deficiency 65587696 Active 2023 OMHINDER MCDERMOTT MD Attn: Accounting ,[address] [place], [address] , [place] - [facility] 4 11:38:10 Body mass index 30+ - obesity 825858934 Active 2023 MOHINDER MCDERMOTT MD Attn: Accounting ,[address] [place], [address] , [place] - [facility] 4 11:38:31 Problem Notes None recorded. Procedures Surgical History Date Name Laterality Status Provider Name and Address Organization Details Recorded Time 02/23/20 21 Date of Last Pap Smear completed BELLO Dyer - [facility] 02/22/2021 10:36:38 lupus anticoagulant assay completed Aida Baconpilo PEYTONDianelys [facility] 02/22/2021 10:30:39 Imaging Results Imaging Date Name Status LastModified by Organiz ation Details LastModified Time 05/24/2022 CT, angiogram, chest + abdomen + pelvis, w/ contrast completed [email or web address] Information not available 05/25/2022 11:35:16 Procedure Notes None recorded. Medical Equipment None Reported. Allergies Allergen ID Allergen Name Allergen Category Reaction Reaction Severity Criticality Documentation Date Start Date Code Code System Note Provider Name and Address Organization Details Recorded Time [id number] Substance with sulfonami de structure and antibacte rial mechanism of action (substanc e) medicatio n Not available Not available Not available 08/24/2021 27102 [id number] SNOMED I have lupus so I can't take it. BELLO [place], [place] - [facility] 2 17:32:29 [id number] penicilli n G Not available Not available Not available Not available 08/24/2021 7980 RxNorm BELLO [place], [place] - [facility] 17:32:44 Medications Name Sig Start Date Stop Date Status Note LastModified by Organization Details LastModified Time antacid/dip hen/lido 111 mouthwas SWISH AND SWALLOW 10 MLS BY MOUTH EVERY 4 HOURS NEEDED 05/03 completed Not Available Not Available Not Available cetirizine 5 mg-pseudoep hedrine ER 120 mg tablet,exte nded release,12h r TAKE 1 TABLET BY MOUTH TWICE DAILY FOR 14 DAYS 05/03 completed Not Available Not Available Not Available hydrocortis one 5 mg tablet TAKE 2 TABLETS BY MOUTH EVERY MORNING AND 1 TABLET EVERY AFTERNOON 11/08 completed Not Available Not Available Not Available amoxicillin 500 mg capsule TAKE 1 CAPSULE BY MOUTH THREE TIMES A DAY FOR 7 DAYS 02/22 completed Not Available Not Available Not Available fluconazole 100 mg tablet TAKE 1 TABLET BY MOUTH EVERY DAY active Not Available Not Available No t Available promethazin e-DM 6.25 mg-15 mg/5 mL oral syrup TAKE 5 ML BY MOUTH EVERY 4 HOURS NEEDED FOR COUGH 08/04 completed Not Available Not Available Not Available neomycin-po lymyxin-hyd rocort 3.5 mg/mL-10,00 0 unit/mL-1 % ear solution 11/08 completed Not Available Not Available Not Available venlafaxine ER 37.5 mg capsule,ext ended release 24 hr TAKE 1 CAPSULE BY MOUTH DAILY FOR 7 DAYS THEN INCREASE TO 1 CAPSULE BY MOUTH TWICE DAILY. active Not Available Not Available No t Available prednisone 10 mg tablet TAKE 1 TABLET BY MOUTH EVERY DAY 02/22 completed Not Available Not Available Not Available doxycycline hyclate 100 mg capsule TAKE 1 CAPSULE BY MOUTH TWICE DAILY 02/07 completed Not Available Not Available Not Available clindamycin HCl 300 mg capsule TAKE 1 CAPSULE BY MOUTH AFTER MEALS 4 TIMES A DAY 08/03 completed Not Available Not Available Not Available trazodone 50 mg tablet TAKE 1/2-1 TABLET BY MOUTH AT NIGHT FOR SLEEP/ANX IETY active Not Available Not Available No t Available Stool Softener 100 mg capsule 05/03 completed Not Available Not Available Not Available azithromyci n 250 mg tablet TAKE ORAL TABS DIRECTED 02/07 completed Not Available Not Available Not Available Lidocaine Viscous 2 % mucosal solution APPLY 10 ML TO MOUTH/THR OAT 3 TIMES DAILY NEEDED FOR DENTAL PAIN THEN SPIT OUT AFTER USE 05/03 completed Not Available Not Available Not Available fluconazole 150 mg tablet TAKE 1 TABLET BY MOUTH ONCE A SINGLE DOSE MAY REPEAT X1 IN 72 HOURS IF NEEDED active Not Available Not Available No t Available clomiphene citrate 50 mg tablet TK 1 T PO D DAY 5 THROUGH DAY 10 OF MENSTRUAL CYCLE 11/08 completed Not Available Not Available Not Available levetiracet am 500 mg tablet TAKE 1 TABLET BY MOUTH TWICE A DAY 11/08 completed Not Available Not Available Not Available valacyclovi r 1 gram tablet TAKE 1 TABLET BY MOUTH TWICE DAILY active Not Available Not Available No t Available hydrocodone 5 mg-acetamin ophen 325 mg tablet 1 TAB EVERY 4 HOURS NEEDED FOR MILD/MODE RATE PAIN OR 2 TABS FOR MORE SEVERE PAIN 8 MAX 24 HRS 09/27 completed Not Available Not Available Not Available ondansetron HCl 8 mg tablet 11/08 completed Not Available Not Available Not Available fluconazole 200 mg tablet TAKE 1 TABLET BY MOUTH NOW AND ANOTHER DOSE IF SYMPTOMS DO NOT RESOLVE AFTER 1 WEEK 02/22 completed Not Available Not Available Not Available meloxicam 15 mg tablet TAKE 1 TABLET BY MOUTH ONCE DAILY 11/08 completed Not Available Not Available Not Available ondansetron HCl 4 mg tablet TAKE 1 TABLET BY MOUTH EVERY 8 HOURS NEEDED FOR NAUSEA AND VOMITING 05/03 completed Not Available Not Available Not Available prednisone 20 mg tablet TAKE 2 & 1/2 (TWO & ONE-HALF) TABLETS BY MOUTH ONCE DAILY FOR 3 DAYS, THEN 2 TABLETS DAILY FOR 3 DAYS, THEN 1 & 1/2 (ONE & ONE-HALF) TABLETS DAILY FOR 3 DAYS, THEN 1 TABLET DAILY FOR 3 DAYS AND THEN 1/2 (ONE-HALF ) TABLET DAILY FOR 3 DAYS 05/03 completed Not Available Not Available Not Available prednisone 5 mg tablet TAKE 1 TABLET BY MOUTH EVERY DAY active Not Available Not Available No t Available terconazole 0.8 % vaginal cream INSERT 1 APPLICATO RFUL VAGINALLY EVERY DAY active Not Available Not Available No t Available clobetasol 0.05 % topical cream APPLY TOPICALLY TO THE AFFECTED AREA TWICE DAILY FOR 14 DAYS 02/07 completed Not Available Not Available Not Available diphenoxyla te-atropine 2.5 mg-0.025 mg tablet TAKE ONE TABLET BY MOUTH FOUR TIMES A DAY NEEDED FOR DIARRHEA 11/08 completed Not Available Not Available Not Available metronidazo le 500 mg tablet 04/26 completed Not Available Not Available Not Available azathioprin e 50 mg tablet TAKE 1 TABLET BY MOUTH EVERY DAY 11/08 completed Not Available Not Available Not Available valacyclovi r 500 mg tablet TAKE 1 TABLET (500 MG) BY MOUTH 4 TIMES DAILY. active Not Available Not Available No t Available ciprofloxac in 500 mg tablet TAKE 1 TABLET BY MOUTH TWICE DAILY 02/07 completed Not Available Not Available Not Available doxycycline monohydrate 100 mg tablet TAKE 1 TABLET BY MOUTH TWICE A DAY FOR 10 DAYS 02/07 completed Not Available Not Available Not Available tramadol 50 mg tablet TAKE 1-2 TABLETS BY MOUTH EVERY 6-8 HOURS NEEDED FOR PAIN (MAX 5 TABS PER DAY) active Not Available Not Available No t Available triamcinolo ne acetonide 0.1 % topical cream APPLY TO AFFECTED AREA TWICE A DAY, DO NOT USE ON FACE active Not Available Not Available No t Available ondansetron 8 mg disintegrat ing tablet Place 1 tablet twice a day by transling ual route. 2022 active Not Available Not Available Not Avai lable ketorolac 10 mg tablet TAKE 1 TABLET BY MOUTH 4 TIMES A DAY NEEDED FOR PAIN WITH FOOD 11/08 completed Not Available Not Available Not Available terconazole 80 mg vaginal suppository INSERT 1 SUPPOSITO RY PER VAGINA AT BEDTIME FOR 3 DAYS 02/07 completed Not Available Not Available Not Available alprazolam 0.5 mg tablet TAKE 1 TABLET BY MOUTH 2 TIMES DAILY NEEDED FOR ANXIETY. 05/03 completed Not Available Not Available Not Available propranolol 10 mg tablet active Not Available Not Available Not Available alprazolam 0.25 mg tablet TAKE 1 TABLET BY MOUTH 2 TIMES DAILY NEEDED FOR ANXIETY. 10/21/1911/08 completed Not Available Not Available Not Available Metrogel Vaginal 0.75 % (37.5 mg/5 gram) Insert 1 applicato rful every day by vaginal route at bedtime for 5 days. 2023 active Not Available Not Available Not Avai lable prednisone 1 mg tablet TAKE 1 TABLET BY MOUTH EVERY DAY 02/22 completed Not Available Not Available Not Available meclizine 25 mg tablet 11/08 completed Not Available Not Available Not Available benzonatate 100 mg capsule TAKE 1 CAPSULE BY MOUTH THREE TIMES A DAY NEEDED FOR COUGH FOR UP TO 10 DAYS 08/03 completed Not Available Not Available Not Available prednisone 2.5 mg tablet TAKE 1 TABLET (2.5 MG) BY MOUTH DAILY TOTAL DOSE OF 7.5 MG DAILY 08/03 completed Not Available Not Available Not Available cephalexin 500 mg capsule TAKE 1 CAPSULE BY MOUTH TWICE DAILY 02/07 completed Not Available Not Available Not Available pantoprazol e 40 mg tablet,juan yed release 05/03 completed Not Available Not Available Not Available acyclovir 5 % topical ointment APPLY OINTMENT TO AFFECTED AREA SIX TIMES DAILY (3 HOURS APART) active Not Available Not Available No t Available tobramycin 0.3 % eye drops INSTILL 1 TO 2 DROPS IN RIGHT EYE EVERY 4 HOURS active Not Available Not Available No t Available buspirone 10 mg tablet TAKE 1 TABLET BY MOUTH TWICE DAILY active Not Available Not Available No t Available clotrimazol e-betametha sone 1 %-0.05 % topical cream APPLY CREAM TOPICALLY TO AFFECTED AREA TWICE DAILY FOR 7 DAYS 05/03 completed Not Available Not Available Not Available lidocaine 5 % topical patch APPLY 1 PATCH TOPICALLY DAILY, REMOVE AFTER 12 HOURS TO BE PATCH FREE FOR 12 HOURS. 11/08 completed Not Available Not Available Not Available carbamazepi ne 100 mg chewable tablet TAKE ONE TABLET BY MOUTH TWICE A DAY FOR ONE WEEK, THEN 2 TABLETS TWICE A DAY 11/08 completed Not Available Not Available Not Available progesteron e micronized 200 mg capsule TAKE 1 CAPSULE BY MOUTH EVERY DAY 02/22 completed Not Available Not Available Not Available sertraline 25 mg tablet TAKE 1 TABLET BY MOUTH ONCE DAILY active Not Available Not Available No t Available buspirone 7.5 mg tablet 11/08 completed Not Available Not Available Not Available omeprazole 20 mg capsule,del ayed release TAKE 1 CAPSULE BY MOUTH EVERY DAY 11/08 completed Not Available Not Available Not Available folic acid 1 mg tablet TAKE 1 TABLET BY MOUTH ONCE DAILY 11/08 completed Not Available Not Available Not Available ergocalcife rol (vitamin D2) 1,250 mcg (50,000 unit) capsule TAKE 1 CAPSULE EVERY WEEK BY ORAL ROUTE. 05/03 completed Not Available Not Available Not Available clobetasol 0.05 % topical ointment APPLY TOPICALLY TO THE AFFECTED AREA TWICE DAILY 05/03 completed Not Available Not Available Not Available hydroxychlo roquine 200 mg tablet TAKE 1 TABLET BY MOUTH EVERY DAY active Not Available Not Available No t Available ibuprofen 600 mg tablet 02/22 completed Not Available Not Available Not Available bromocripti ne 2.5 mg tablet 11/08 completed Not Available Not Available Not Available levofloxaci n 500 mg tablet TAKE 1 TABLET BY MOUTH EVERY DAY FOR 7 DAYS 02/22 completed Not Available Not Available Not Available methylpredn isolone 4 mg tablets in a dose pack TAKE ORAL TABS DIRECTED ON PACKAGE 12/13 /2024 completed Not Available Not Available Not Available albuterol sulfate HFA 90 mcg/actuati on aerosol inhaler INHALE 1 PUFF FOUR TIMES DAILY NEEDED FOR SHORTNESS OF BREATH OR WHEEZING active Not Available Not Available No t Available SSD 1 % topical cream MEKHI TOPICALLY TO FINGER BID active Not Available Not Available No t Available ondansetron 4 mg disintegrat ing tablet DISSOLVE 1 TABLET IN MOUTH EVERY 8 HOURS NEEDED FOR NAUSEA - 1ST LINE active Not Available Not Available No t Available cefdinir 300 mg capsule TAKE 1 CAPSULE BY MOUTH TWICE DAILY FOR 10 DAYS 08/04 completed Not Available Not Available Not Available sertraline 50 mg tablet TAKE 1 & 1/2 (ONE & ONE-HALF) TABLETS BY MOUTH ONCE DAILY active Not Available Not Available No t Available diazepam 5 mg tablet TAKE 1 TABLET BY MOUTH EVERY 6 HOURS NEEDED FOR MUSCLE SPASMS active Not Available Not Available No t Available oxycodone 5 mg tablet 04/26 completed Not Available Not Available Not Available Gentle Laxative (bisacodyl) 10 mg rectal suppository active Not Available Not Available Not Available azithromyci n 500 mg tablet TAKE 1 TABLET BY MOUTH ONCE DAILY FOR 5 DAYS 02/07 completed Not Available Not Available Not Available escitalopra m 10 mg tablet TAKE 1 TABLET BY MOUTH EVERY DAY 11/08 completed Not Available Not Available Not Available Sprintec (28) 0.25 mg-35 mcg tablet TAKE 1 TABLET BY MOUTH ONCE DAILY FOR 28 DAYS 05/03 completed Not Available Not Available Not Available cyclobenzap rine 5 mg tablet TAKE 1 TABLET BY MOUTH THREE TIMES A DAY NEEDED FOR MUSCLE SPASM active Not Available Not Available No t Available moxifloxaci n 0.5 % eye drops INSTILL 1 DROP INTO RIGHT EYE 4 TIMES DAILY active Not Available Not Available No t Available aripiprazol e 5 mg tablet 11/08 completed Not Available Not Available Not Available bupropion HCl XL 150 mg 24 hr tablet, extended release TAKE 1 TABLET BY MOUTH ONCE DAILY IN THE MORNING active Not Available Not Available No t Available nitrofurant oin monohydrate /macrocryst als 100 mg capsule TAKE 1 CAPSULE BY MOUTH TWICE A DAY FOR 5 DAYS 02/07 completed Not Available Not Available Not Available lactulose 10 gram/15 mL oral solution active Not Available Not Available Not Available Nyamyc 100,000 unit/gram topical powder APPLY TO AFFECTED AREA TWICE A DAY active Not Available Not Available No t Available ferrous gluconate 324 mg (38 mg iron) tablet TAKE 1 TABLET BY MOUTH THREE TIMES DAILY 05/03 completed Not Available Not Available Not Available diclofenac 1 % topical gel APPLY 2 GRAMS TOPICALLY TO ARTHRITIS JOINTS 3 TIMES A DAY NEEDED 11/08 completed Not Available Not Available Not Available Purelax 17 gram/dose oral powder active Not Available Not Available Not Available PrePlus 27 mg iron-1 mg tablet 02/22 completed Not Available Not Available Not Available Ozempic 0.25 mg or 0.5 mg (2 mg/1.5 mL) subcutaneou s pen injector Inject 0.25 mg every week by subcutane ous route. 08/04 completed Not Available Not Available Not Available Hemorrhoida l Relief 5 % topical cream APPLY 2 ML TOPICALLY 2 (TWO) TIMES A DAY active Not Available Not Available No t Available Plenity 0.75 gram capsule Take 3 capsules twice a day by oral route before meals. 08/04 completed Not Available Not Available Not Available Vitals Date Recorded Body height Body mass index (BMI) Body weight Systolic blood pressure Diastolic blood pressure Provider Name and Address Organization Details Last Updated DateTime 02/22/2021 160.02 cm 29.4 kg/m2 11074.73 g 120 mm[Hg] 70 mm[Hg] BELLO Dyer [place] - [facility] 10:36:23 Date Recorded Body height Provider Name an d Address Organization Details Last Updated DateTime 03/22/2021 160.02 cm BELLO D[place] - [facility] 2021 14:54:28 Date Recorded Body height Body mass index (BMI) Body weight Systolic blood pressure Diastolic blood pressure Provider Name and Address Organization Details Last Updated DateTime 08/03/2021 160.02 cm 30.4 kg/m2 73958.1 g 118 mm[Hg] 72 mm[Hg] Nuzhat Cristobal [place] - [facility] 10:54:52 Date Recorded Body height Body mass index (BMI) Body weight Systolic blood pressure Diastolic blood pressure Provider Name and Address Organization Details Last Updated DateTime 05/03/2022 160.02 cm 31.3 kg/m2 34623.45 g 109 mm[Hg] 71 mm[Hg] BELLO Dyer [place] - [facility] 3 14:17:03 Date Recorded Body height Body mass index (BMI) Body weight Heart rate Respiratory rate Systolic blood pressure Diastolic blood pressure Provider Name and Address Organization Details Last Updated DateTime 4 160.02 cm 31.3 kg/m2 41337.0 6 g 71 /min 18 /min 124 mm[Hg] 80 mm[Hg] Анна Piedra Jk [place] - [facility] 4 15:10:54 Social History Question Answer Notes LastModified by Organizat ion Details LastModified Time Tobacco Smoking Status Never Smoker BELLO [place] - [facility] 02/22/2021 10:37:29 In The 14 Days Before Symptom Onset, Have You Had Close Contact With A Laboratory-confirm ed COVID-19 While That Case Was Ill? No Information n ot available 07/04/2023 In The 14 Days Before Symptom Onset, Have You Had Close Contact With A Person Who Is Under Investigation For COVID-19 While That Person Was Ill? No [email or web address] Information not available 07/04/2023 Have You Been To An Area Known To Be High Risk For COVID-19? No [email or web address] Information not available 07/04/2023 What Was The Date Of Your Most Recent Tobacco Screening? 07/04/2023 [email or web address] Information not available 07/04/2023 Are You Sexually Active? Yes [email or web address] Information not available 07/04/2023 Do You Have Smoke And Carbon Monoxide Detectors In Your Home? Yes [email or web address] Information not available 07/04/2023 Are You Passively Exposed To Smoke? No Information no t available 07/04/2023 Do You Use Any Illicit Or Recreational Drugs? No Information not available 05/03/2022 Has Tobacco Cessation Counseling Been Provided? Yes Information not available 05/03/2022 On What Date Was Tobacco Cessation Counseling Provided? 05/03/2022 Information not available 05/03/2022 Sex: Female Functional Status None recorded. Mental Status None recorded. Family History Nothing Reported. Medical History Condition Response Anxiety Disorder Y Depression Y Gynecological History Statement/Question Response Flow Heavy Date of LMP 07/02/2023 Menses Monthly Y STIs/STDs Yes Date of Last Pap Smear 02/22/2021 Duration of Flow (days) 7 Current Control Method None LMP Definite Obstetrics History GPAL:G 3 P 1 0 2 1 Type Value Full Term 1 Spontaneous 2 Living 1 Total 3 Past Encounters Encounter ID Performer Location Encounter Start Date Encounter Closed Date Diagnosis/Indication Diagnosis SNOMED-CT Code Diagnosis ICD10 Code [id number] KINGA Joseph [address] [place] [address] 01/29/2020 13:19:34 01/30/2020 07:49:32 Viral screening 100894778 Z11.59 Viral syndrome 567803169 B34.9 [id number] JOSE Rice Mercedes [address] [facility] [place] [address] 02/22/2021 10:15:21 02/23/2021 05:03:08 Gynecologic examination 74900582 Z01.419 Contracept ion care management 323411964 Z30.9 Mass of right breast 005 9926893 8174220 N63.10 [id number] BRENDA Rice [address] [place] [address] [place] [address] 03/22/2021 14:49:10 03/23/2021 06:04:00 Menorrhagia 360194176 N92.0 [id number] BRENDA Rice 14 OB [address] [facility] [place] [address] 08/03/2021 10:42:49 08/04/2021 08:09:02 Malaise and fatigue 414290979 R53.81 Weight gain 2553352 R63. 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 Diastasis recti 82506758 M62.08 Reduced libido 9695468 R 68.82 [id number] BRENDA Rice 14 OB [address] [facility] [place] [address] 05/03/2022 13:56:58 05/04/2022 08:30:36 Dysuria 12951563 R30.0 Vaginal discharge 104941 006 N89.8 Morbid obesity 980960484 E66.01 [id number] LEWIS RiceP- Mercedes 14 OB [address] [facility] [place] [address] 07/04/2023 14:49:24 07/11/2023 10:58:45 Vaginal discharge 220578298 N89.8 Obesity 004909745 E66.9 Health Concerns Section Related Observation LastModified by Organization Detai ls LastModified Time None Recorded Concern Status LastModified by Organization Details LastModified Time None Recorded Advance Directives Directive None Recorded Payers Encounter Date Sequence Insurance Name Policy Number Policy Mendieta Covered Member ID Mendieta Member ID Guarantor Name 02/22/2021 1 [facility] [id number] Carito Rausch [id number] Carito Madison 03/22/2021 1 [employer] (EPO) [id number] Carito Madison [id number] Carito Madison 08/03/2021 1 [place] [id number] Carito Madison [id number] Carito Madison 07/04/2023 1 *SELF PAY* Co mindi Madison Notes Date Note Type Note Provider Name and Address Organization Details Recorded Time 02/22/2021 text/html Annual GYNReport ed bypatient.History: no gynecologic complaints Menstrual cycle:Normal menses Urinary symptoms:No hematuria; No incontinence Vulva:No genital lesion Vagina:Normal vaginal discharge Breast:No breast pain; No breast lump; No nipple discharge Current Contraception:Olga h control not practiced Sexual complaints:No sexual complaints; No pain during intercourse; Normal libido Menopausal Symptoms:No menopausal symptoms; Normal vaginal lubrication Psychological symptoms:No depression; No anxiety; No PMDD Preventive measures:Encourage self breast examination; Encourage regular exercise; Encourage no tobacco use; Encourage regular mammograms starting age 40; Followed with Q3 year pap smear and high risk HPV typing - recently had baby in December at [place], placenta previa- in current lawsuit over delivery, baby ok now- hx of 2 miscarriages- Eros (gen surg) doing breast biopsy tomorrow at [facility] for right breast lump- pt requests pap today due to losing insurance in february- does not want control, will try to get in next year BRENDA Rice Attn: Accounting[address] [place], [address], [facility] - [facility] 02/22/2021 11:11:52 03/22/2021 text/html Annual GYNReport ed bypatient.Urinary symptoms:No hematuria; No incontinence Vulva:No genital lesion Vagina:Normal vaginal discharge Breast:No breast pain; No breast lump; No nipple discharge Current Contraception:Olga h control not practiced Sexual complaints:No sexual complaints; No pain during intercourse; Normal libido Menopausal Symptoms:No menopausal symptoms; Normal vaginal lubrication Psychological symptoms:No depression; No anxiety; No PMDD Preventive measures:Encourage self breast examination; Encourage regular exercise; Encourage no tobacco use; Encourage regular mammograms starting age 40; Followed with Q3 year pap smear and high risk HPV typing phone visit due to having covidstarted cycle Sunday, went out sunday night for drinks, woke up sunday morning pouring blood , second cycle since having baby- states she bled for 6 weeks following c/swent to [facility] ed 03/21/21 for bleeding, was given ocp but throwing upbleeding is better now , gets bad at night time, first thing when waking, lessened todaypt states she was positive for covid march 05, 2021 BRENDA Rice Attn: Accounting[address] [place], [address], [facility] - [facility] 03/22/2021 15:05:09 08/03/2021 text/html Annual GYNReport ed bypatient.Menstrua l cycle:Menorrhagia Urinary symptoms:No hematuria; No incontinence Vulva:Painful genital lesion;Multiple sores Vagina:Normal vaginal discharge Breast:No breast pain; No breast lump; No nipple discharge Current Contraception:Olga h control not practiced Sexual complaints:No sexual complaints; No pain during intercourse;Decrea sed libido Menopausal Symptoms:No menopausal symptoms; Normal vaginal lubrication Psychological symptoms:No depression;Anxiety Preventive measures:Encourage self breast examination; Encourage regular exercise; Encourage no tobacco use; Encourage regular mammograms starting age 40; Followed with Q3 year pap smear and high risk HPV typing 31 yo fe here for multiple complaints, - 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, latia's disease, lupus- complaint of weight gain despite diet and exercise, fatigue, menorrhagia, abdominal issues since c/s 7 months ago, 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 and reduced libido JOSE Rice Attn: [address] [place], [address], [facility] - [facility] 08/03/2021 11:45:50 05/03/2022 text/html Annual GYNReport ed bypatient.Menstrua l cycle:Normal menses Urinary symptoms:No hematuria; No incontinence Vulva:No genital lesion Vagina:Normal vaginal discharge Breast:No breast pain; No breast lump; No nipple discharge Current Contraception:Olga h control not practiced Sexual complaints:No sexual complaints; No pain during intercourse;Decrea sed libido Menopausal Symptoms:No menopausal symptoms; Normal vaginal lubrication Psychological symptoms:No depression;Anxiety Preventive measures:Encourage self breast examination; Encourage regular exercise; Encourage no tobacco use; Encourage regular mammograms starting age 40; Followed with Q3 year pap smear and high risk HPV typing 31 yo fe here for dysuria and vaginal discharge for 3 days, - 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, latia's disease, lupus- complaint of unable to lose weight BRENDA Rice Attn: [address] [place], [address], [facility] - [facility] 05/03/2022 15:00:25 07/04/2023 text/html Annual GYNReport ed bypatient.Menstrua l cycle:Normal menses Urinary symptoms:No hematuria; No incontinence Vulva:No genital lesion Vagina:Normal vaginal discharge;Vaginal itching Breast:No breast pain; No breast lump; No nipple discharge Current Contraception:Olga h control not practiced Sexual complaints:No sexual complaints; No pain during intercourse;Decrea sed libido Menopausal Symptoms:No menopausal symptoms; Normal vaginal lubrication Psychological symptoms:No depression;Anxiety Preventive measures:Encourage self breast examination; Encourage regular exercise; Encourage no tobacco use; Encourage regular mammograms starting age 40; Followed with Q3 year pap smear and high risk HPV typing 33yo fe here for vaginal itching x one week, - 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, latia's disease, lupus- states she went to ED sunday night and was positive for yeast- states [facility] and was swabbed, he referred her to [facility] BRENDA Rice Attn: Accounting[address] , [place], [address], [place] - [facility] 07/04/2023 15:20:18 OBGyn Episode Ob Episode Information Episode Created Date Number of Fetuses Patient Bloodtype Patient rh Status Prepregnancy Weight lbs Domestic Partner Domestic Partner Phone Father Name Communications Scientist Status 02/23/20 21 1 CLOSED Fetus Data First Name Last Name Admitted to NICU Weight (g) Sex Living Outcome Pediatric Complications Fetus ID Race Codes Race Delivery Type 3288.54 2 F Full Term [id number] Only Mane Calculation MANE Calculation Method Initial Mane Date Initial Exam Date Initial Exam Provider Initial Ultrasound Date Last Menstrual Period Date Ultra Sound Weeks Gestation Conception by IVF Embryo Age at Transfer Date of Transfer 0 Eighteen To Twenty Week Mane Update Ultra Sound Date Fundal Height At Umbil Quickening Date Ultra Sound Latest Weeks Gestation Final Mane Confirmed By Final Mane Confirmed Date Final Mane Date Ultra Sound Latest Days Gestation 0 0 Menstrual History Last Menstrual Date Menses Monthly On Bcp Conception Prior Menses Frequency Hcg Plus Date Menarche Onset Age Delivery Information Delivery Date Delivery Type Labor Anesthesia Weeks Gestation Incision Type Labor Labor Length Hrs Delivered By Post Complications Tubal Sterilization Discharge Date Comments 1 [facility] idural 36 Discharge Information Feeding Method Contraceptive Method Maternal HG B and HCT Levels
--- OUTSIDE RECORDS SUMMARY | 2024-02-24 19:38 | XMS_ITS | Continuity of Care Document ---
Author Organization [facility] Address [address] [place] [phone] Care Team Providers Care Departure Clerk Name Role Phone Gayla Barker Primary Care Physician [phone] Encounter [facility] Financial Number [id number] Date(s): 11/07/22 - 11/07/[address] [id number] Encounter Diagnosis Dysuria(Discharge Diagnosis) - 11/07/22 Discharge Disposition: Home or Self Care Attending Physician: Cirilo Mckeon D.O. 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, Height, 79.5, kg, 04/18/22 13:37:00 JUNIOR SYSTEMS ENGINEER, Weight, stated Start Date: 11/07/22 Stop Date: 11/12/22 Status: Ordered predniSONE 0 Start Date: 11/16/21 Status: Ordered predniSONE 10 mg oral tablet 10 mg, 1 tablet(s), Oral, daily, 10 tablet(s), Tablet(s), 0, 0, Route to Pharmacy Electronically, [facility], [id number], 157, cm, 04/18/2022 1337, Height, 79.5, kg, 04/18/2022 1337, Weight, stated Start Date: 04/18/22 Stop Date: 04/28/22 Status: Ordered Rhinocort Aqua 32 mcg/inh nasal spray 2 spray(s), Nasal, daily, 27 mL, [place], 0, 0, Route to Pharmacy Electronically, [facility], [id number], 157, cm, 02/08/2022 1349, Height, 81, kg, 02/08/2022 1349,Weight, stated Start Date: 02/08/22 Status: Ordered sertraline 25 mg oral tablet 0 Start Date: 11/16/21 Status: Ordered Problem List Condition Confirmation Course Effective Dates Status Health St atus Informant Genital herpes Confirmed Active Procedures Procedure Date Related Diagnosis Body Site Status Appendectomy Completed Results Laboratory List Name Date Waived [facility]-Urinalysis 11/07/22 Most recent to oldest [Reference Range]: 1 UA Blood [Negative] Negative 1 (11/07/22 5:04 PM) UA Bilirubin [Negative] Negative (11/07/22 5:04 PM) UA Glucose (Qual) [Negative] Negative (11/07/22 5:04 PM) UA Ketones [Negative] Negative (11/07/22 5:04 PM) UA Leukocyte Esterase [Negative] Negativ e 2 (11/07/22 5:04 PM) UA Nitrite [Negative] Negative 3 (11/07/22 5:04 PM) UA Specific [place] [1.005-1.030] 1.015 (11/07/22 5:04 PM) UA pH [5.0-8.0] 5.0 (11/07/22 5:04 PM) UA Protein (Qual) [Negative] Negative 4 (11/07/22 5:04 PM) UA Urobilinogen [Negative] <1.0 *(A)* (11/07/22 5:04 PM) Performed at [facility] 5 (11/07/22 5:04 PM) 1Interpretive Data: False-negative results have been reported for protein, nitrite, leukocytes and blood using the Urisys 1100 automated analyzer.?? Please see urinalysis macroscopic visual quality check report for manual/visual dipstick result. 2Interpretive Data: False-negative results have been reported for protein, nitrite, leukocytes and blood using the Urisys 1100 automated analyzer.?? Please see urinalysis macroscopic visual quality check report for manual/visual dipstick result. 3Interpretive Data: False-negative results have been reported for protein, nitrite, leukocytes and blood using the Urisys 1100 automated analyzer.?? Please see urinalysis macroscopic visual quality check report for manual/visual dipstick result. 4Interpretive Data: False-negative results have been reported for protein, nitrite, leukocytes and blood using the Urisys 1100 automated analyzer.?? Please see urinalysis macroscopic visual quality check report for manual/visual dipstick result. 5Result Comment: [facility], [address] [place] [address] Vital Signs Most recent to oldest [Reference Range]: 1 Temperature Temporal Artery [35.8-38 Deg C] 36.7 DegC (11/07/22 5:03 PM) Peripheral Pulse Rate [60-100 bpm] 80 bp m (11/07/22 5:03 PM) Respiratory Rate [14-22 br/min] 16 br/mi n (11/07/22 5:03 PM) Blood Pressure [89-139/60-90 mm Hg] 122/ 76mm Hg (11/07/22 5:03 PM) Social History Social History Type Response Alcohol Former alcohol user Substance Abuse Never drug user Smoking Status Former smoker;Never; Tobacco Cessation Counseling Requested N/A; Type: Cigarettes entered on: 11/16/21 Sex Hospital Discharge Instructions Patient Education 11/07/2022 17:39:19 Dysuria Dysuria Dysuria is when you have pain during urination. It is often described as a burning feeling. Learn more about this problem and how it can be treated. Painful urination (dysuria) is often caused by a problem in the urinary tract. What causes dysuria? Possible causes include: ???Infection with a bacteria or virus such as a urinary tract infection (UTI) or a sexually transmitted??infection (STI) ???Sensitivity or allergy to chemicals such as those found in lotions and other products ???Prostate or bladder problems ???Radiation therapy to the pelvic area How is dysuria diagnosed? Your healthcare provider will examine you. He or she will ask about your symptoms and health. Aftertalking with you and doing a physical exam, your healthcare provider may know what is causing your dysuria. You will often have to give a urine sample. Tests of your urine (urinalysis) are done. A urinalysis may include: ???Looking at the urine sample (visual exam) ???Checking for substances (chemical exam) ???Looking at a small amount of the urine under a microscope (microscopic exam) Some parts of the urinalysis may be done in the provider's office and some in a lab. The urine sample may also be checked for bacteria and yeast (urine culture).??Your healthcare provider will tell you more about these tests if they are needed. How is dysuria treated? Treatment depends on the cause. If you have a bacterial infection, you may need antibiotics. You may be given medicines to make it easier for you to urinate and help ease pain. Your healthcare provider can tell you more about your treatment options. If not treated, symptoms may get worse. When to call your healthcare provider Call the healthcare provider right away if you have any of the following: ???Fever of?? 100.4?? F??( 38??C) or higher, or as directed by your provider ???No improvement after 3 days of treatment ???Trouble urinating because of pain ???New or increased discharge from the vagina or penis ???Rash or joint pain ???Increased back or belly pain ???Enlarged painful lymph nodes (lumps) in the groin ?? 5358-9796 The [employer]st.[employer]. All rights reserved. This information is not intended as a substitute for professional medical care. Always follow your healthcare professional's instructions. Nurse Urgent care center Note * Cirilo Mckeon D.O.: PERFORM Event Display: [facility] Note-Nursing Authored Date: [id number] [facility] Pending Results Entered On: 11/07/2022 17:41 CDT Performed On: 11/07/2022 17:41 CDT by Cirilo Mckeon D.O. [facility] Pending Results [facility] Pending Order Completion : No Cirilo Mckeon D.O. - 11/07/2022 17:41 CDT * Pako Rodriguez RN: PERFORM Event Display: [facility] Note-Nursing Authored Date: [id number] [facility] Urine Pegnancy Test Entered On: 11/07/2022 17:14 CDT Performed On: 11/07/2022 17:14 CDT by Pako Rodriguez RN Urine Test [facility] Urine Preg Specimen Collection : 11/25/2022 17:14 CDT [facility] Urine Preg It Consulting Director : Pako Rodriguez RN [facility] Urine Performed By : Pako Rodriguez RN Urine Internal Control Present : IC0, IC1 [facility] Urine POC Result : Negative Pako Rodriguez RN - 11/07/2022 17:14 CDT * Pako Rodriguez RN: PERFORM Event Display: [facility] Note-Nursing Authored Date: [id number] Urgent Care Triage Entered On: 11/07/2022 17:08 CDT Performed On: 11/07/2022 17:03 CDT by Pako Rodriguez RN [facility] Triage Chief Complaint Description : Bladder pain started yesterday. Radiates to lower back. Feels frequency, urgency with urination. Pako Rodriguez RN - 11/07/2022 17:03 CDT DCP GENERIC CODE Tracking Acuity : 4 - Less Urgent Tracking Group : [place] [facility] Pako Rodriguez RN - 11/07/2022 17:03 CDT Temperature Temporal Artery : 36.7 DegC(Converted to: 98.1 DegF) Peripheral Pulse Rate : 80 bpm Respiratory Rate : 16 br/min Systolic/Diastolic BP : 122 mm Hg Systolic/Diastolic BP : 76 mm Hg Oxygen Saturation : 98 % Pain Symptoms : No Pako Rodriguez RN - 11/07/2022 17:03 CDT (As Of: 11/07/2022 17:08 CDT) Problems(Active) Addisons disease (SNOMED CT :468065941 ) Name of Problem: Addisons disease ; Recorder: Nishant Arguello RN; Confirmation: Confirmed ; Classification: Patient Stated ; Code: 729141995 ; Contributor System: PowerChart ; Last Updated: 11/16/2021 10:27 CDT ; Life Cycle Date: 11/16/2021 ; Life Cycle Status: Active ; Vocabulary: SNOMED CT Depression (SNOMED CT :90388207 ) Name of Problem: Depression ; Recorder: Nishant Arguello RN; Confirmation: Confirmed ; Classification: Patient Stated ; Code: 85429950 ; Contributor System: Kudoala ; Last Updated: 11/16/2021 10:27 CDT ; Life Cycle Date: 11/16/2021 ; Life Cycle Status: Active ; Vocabulary: SNOMED CT Genital herpes (SNOMED CT :02986817 ) Name of Problem: Genital herpes ; Recorder: Minal Arreguin NP; Confirmation: Confirmed ; Classification: Medical ; Code: [id number] ; Contributor System: Kudoala ; Last Updated: 08/08/2017 16:00CDT ; Life Cycle Date: 08/08/2017 ; Life Cycle Status: Active ; Vocabulary: SNOMED CT Lupus (SNOMED CT :702820768 ) Name of Problem: Lupus ; Recorder: Nishant Arguello RN; Confirmation: Confirmed ; Classification: Patient Stated ; Code: 450966525 ; Contributor System: ipnexusChart ; Last Updated: 11/16/2021 10:27 CDT ; Life Cycle Date: 11/16/2021 ; Life Cycle Status: Active ; Vocabulary: SNOMED CT Diagnoses(Active) Abdominal pain Date: 11/07/2022 ; Diagnosis Type: Reason For Visit ; Confirmation: Complaint of ; Clinical Dx: Abdominal pain ; Classification: Medical ; Clinical Service: Emergency medicine ; Code: PNED ; Probability: 0 ; Diagnosis Code: [id number] - Procedure History (As Of: 11/07/2022 17:08 CDT) Anesthesia Minutes: 0 ; Procedure Name: Appendectomy ; Procedure Minutes: 0 Document Allergies/Home Meds Anticoagulant Therapy in Last 7 Days : Pako Sandoval RN - 11/07/2022 17:03 CDT (As Of: 11/07/2022 17:08 CDT) Allergies (Active) penicillin Estimated Onset Date: Unspecified ; Reactions: Hives ; Created By: Marlene Cardoza [employer]; Reaction Status: Active ; Category: Drug ; Substance: penicillin ; Type: Allergy ; Updated By: Marlene Cardoza [employer]; Reviewed Date: 04/18/2022 13:49 JUNIOR SYSTEMS ENGINEER sulfa drugs Estimated Onset Date: Unspecified ; Created By: Pako Rodriguez RN; Reaction Status: Active ; Category: Drug ; Substance: sulfa drugs ; Type: Allergy ; Updated By: Pako Rodriguez RN; Reviewed Date: 11/07/2022 17:07 CDT Medication List (As Of: 11/07/2022 17:08 CDT) Prescription/Discharge Order albuterol : albuterol ; Status: Completed ; Ordered As Mnemonic: albuterol 90 mcg/inh inhaler ; Simple Display Line: 2 puff(s), Inhalation, qid, for 14 day(s), 1 each, 0 Refill(s) ; Ordering Provider: Cirilo Mckeon D.O.; Catalog Code: albuterol ; Order Dt/Tm: 04/18/2022 14:29 JUNIOR SYSTEMS ENGINEER budesonide nasal : budesonide nasal ; Status: Prescribed ; Ordered As Mnemonic: Rhinocort Aqua 32 mcg/inh nasal spray ; Simple Display Line: 2 spray(s), Nasal, daily, 27 mL, 0 Refill(s) ; Ordering Provider: Ernie Payne DO; Catalog Code: budesonide nasal ; Order Dt/Tm: 02/08/2022 14:01 JUNIOR SYSTEMS ENGINEER predniSONE : predniSONE ; Status: Prescribed ; Ordered As Mnemonic: predniSONE 10 mg oral tablet ; Simple Display Line: 10 mg, 1 tablet(s), Oral, daily, for 10 day(s), 10 tablet(s), 0 Refill(s) ; Ordering Provider: Cirilo Mckeon D.O.; Catalog Code: predniSONE ; Order Dt/Tm: 04/18/2022 14:28 JUNIOR SYSTEMS ENGINEER Home Meds hydroxychloroquine : hydroxychloroquine ; Status: [...] sertraline ; Order Dt/Tm: 11/16/2021 10:26 CDT [facility] General Assessment/Social Hx Child/Parent Domestic Concerns : None Special Practices to be Part of Care : No Little interest/pleasure in doing things? : No Feeling down, depressed, or hopeless? : No Barriers to Learning : None evident Preferred Mode of Communication : Verbal Preferred Language of Patient/Caregiver ED : Danish [facility] Call Patient Back : No [facility] Plan of Care Discussed : Yes Pako Rodriguez RN - 11/07/2022 17:03 CDT Social History (As Of: 11/07/2022 17:08 CDT) Tobacco: Former smoker, Smokeless Tobacco use: Never. [...] in Last 3 Months [place] : No Pako Rodriguez RN - 11/07/2022 17:03 CDT Novel Coronavirus Assessment Novel Coronavirus Current Fever : No Novel Coronavirus Exposed COVID 14 days : No Pako Rodriguez RN - 11/07/2022 17:03 CDT Note * Cirilo Mckeon D.O.: PERFORM Event Display: [facility] Patient Summary Authored Date: [id number] UMER BOWEN :1990 Visit Date:11/07/2022 [facility] Discharge Instructions Patient Information Name:UMER BOWEN Address: [address] [place] [id number] Sex:Female Date of :1990 Location:[facility] Registration Date and Time:11/07/2022 16:52 CDT Primary Care Physician: Gayla Barker PATENT CLERK, Attending Physician: Cirilo Mckeon D.O., Location Information ?[facility] [place]?[address] [place] [address]? Your Diagnosis Diagnosis ?Dysuria?Discharge ?Abdominal pain?Reason For Visit ?? Your Care Team Attending Physician - Cirilo Mckeon D.O. Primary Care Physician - Gayla Barker PATENT CLERK Discharge Vitals Vital Signs Temperature Temporal Artery: 36.7 DegC Systolic Blood Pressure: 122 mm Hg Diastolic Blood Pressure: 76 mm Hg Peripheral Pulse Rate: 80 bpm Respiratory Rate: 16 br/min Oxygen Saturation: 98 % What's Next? You Need to Schedule the Following Appointments Follow Up with??Gayla Barker NP, Family Medicine When?? Where: [address], [place] [address]- Medications [facility] has provided you with a [...] pharmacist. What How Much When Instructions New nitrofurantoin (nitrofurantoin macrocrystals-monohydrate 100 mgoral capsule (generic Macrobid)) 1 capsule(s) By mouth 2 times a day Duration: 5 day(s) Pickup at [facility]/pharmacy #[id number] Unchanged budesonide nasal (Rhinocort Aqua 32 mcg/ inh nasal spray) 2 spray(s) Nasal Daily Unchanged hydroxychloroquine Unchanged predniSONE Unchanged predniSONE (predniSONE 10 mg oral tablet) 1 tablet(s) By mouth Daily Duration: 10 day(s) Unchanged sertraline (sertraline 25 mg oral tablet) Pharmacy Information [facility]/pharmacy #[id number]: [address] [place], [place] [phone] Medications and Immunizations Administered Medication Administrations ? No Results Found ? Allergies penicillin??(Hives) sulfa drugs Labs Test Name Test Result Date/TimeUA Specific [place] 1.015 11/07/2022 17:04 CDT UA pH 5.0 11/07/2022 17:04 CDT UA Leukocyte Esterase Negative 11/07/2022 17:04 CDT UA Nitrite Negative 11/07/2022 17:04 CDT UA Protein (Qual) Negative 11/07/2022 17:04 CDT UA Glucose (Qual) Negative 11/07/2022 17:04 CDT UA Ketones Negative 11/07/2022 17:04 CDT UA Urobilinogen <1.0 (Abnormal) 11/07/2022 17:04 CDT UA Bilirubin Negative 11/07/2022 17:04 CDT UA Blood Negative 11/07/2022 17:04 CDT Performed at [facility] 11/07/2022 17:04 CDT [facility] Urine POC Result Negative 11/07/2022 17:14 CDT Urine Internal Control Present IC0, IC1 11/07/2022 17:14 CDT [facility] Urine Preg It Consulting Director Pako Rodriguez ??RN 11/07/2022 17:14 CDT [facility] Urine Preg Specimen Collection 11/25/2022 17:14 CDT 11/07/2022 17:14 CDT Urinalysis It Consulting Director Pako oRdriguez ??RN 11/07/2022 17:01 CDT Urinalysis Specimen Collection 11/07/2022 17:01 CDT 11/07/2022 17:01 CDT [facility] Urinalysis POC Color Yellow 11/07/2022 17:01 CDT [facility] Urinalysis POC Appearance Clear 11/07/2022 17:01 CDT Radiology ? COMPLETED RADIOLOGY IMAGING STUDIES: ? No Imaging Results in the last 36 hours Education Materials Dysuria Dysuria is when you have pain during urination. It is often described as a burning feeling. Learn more about this problem and how it can be treated. Painful urination (dysuria) is often caused by a problem in the urinary tract. What causes dysuria? Possible causes include: ???Infection with a bacteria or virus such as a urinary tract infection (UTI) or a sexually transmitted??infection (STI) ???Sensitivity or allergy to chemicals such as those found in lotions and other products ???Prostate or bladder problems ???Radiation therapy to the pelvic area How is dysuria diagnosed? Your healthcare provider will examine you. He or she will ask about your symptoms and health. Aftertalking with you and doing a physical exam, your healthcare provider may know what is causing your dysuria. You will often have to give a urine sample. Tests of your urine (urinalysis) are done. A urinalysis may include: ???Looking at the urine sample (visual exam) ???Checking for substances (chemical exam) ???Looking at a small amount of the urine under a microscope (microscopic exam) Some parts of the urinalysis may be done in the provider's office and some in a lab. The urine sample may also be checked for bacteria and yeast (urine culture).??Your healthcare provider will tell you more about these tests if they are needed. How is dysuria treated? Treatment depends on the cause. If you have a bacterial infection, you may need antibiotics. You may be given medicines to make it easier for you to urinate and help ease pain. Your healthcare provider can tell you more about your treatment options. If not treated, symptoms may get worse. When to call your healthcare provider Call the healthcare provider right away if you have any of the following: ???Fever of?? 100.4?? F??( 38??C) or higher, or as directed by your provider ???No improvement after 3 days of treatment ???Trouble urinating because of pain ???New or increased discharge from the vagina or penis ???Rash or joint pain ???Increased back or belly pain ???Enlarged painful lymph nodes (lumps) in the groin ?? 7638-3766 The w[employer]. All rights reserved. This information is not intended as a substitute for professional medical care. Always follow your healthcare professional's instructions. In need of a Physician? Call [facility] Physician Referral Service [phone]. Thank you for choosing [facility] for your care. The examination [...] follow up instructions and have verbalized understanding. Patient/Communication Center Operator Signature: Provider Signature: Date/Time:11/07/2022 17:41:29 * Pako Rodriguez RN: PERFORM Event Display: [facility] Urinalysis - Macroscopic - Text Authored Date: [id number] [facility] Urinalysis - Macroscopic Entered On: 11/07/2022 17:02 CDT Performed On: 11/07/2022 17:01 CDT by Pako Rodriguez RN Urinalysis Urinalysis Specimen Collection : 11/07/2022 17:01 CDT [facility] Urialysis It Consulting Director : Pako Rodriguez RN [facility] Urinalysis Performed By : Pako Rodriguez RN [facility] Urinalysis POC Color : Yellow [facility] Urinalysis POC Appearance : Clear Pako Rodriguez RN - 11/07/2022 17:01 CDT * Cirilo Mckeon D.O.: PERFORM, SIGN, VERIFY Event Display: [facility] Patient Education Authored Date: [id number] Ambulatory Dysuria Dysuria is when you have pain during urination. It is often described as a burning feeling. Learn more about this problem and how it can be treated. Painful urination (dysuria) is often caused by a problem in the urinary tract. What causes dysuria? Possible causes include: ???Infection with a bacteria or virus such as a urinary tract infection (UTI) or a sexually transmitted??infection (STI) ???Sensitivity or allergy to chemicals such as those found in lotions and other products ???Prostate or bladder problems ???Radiation therapy to the pelvic area How is dysuria diagnosed? Your healthcare provider will examine you. He or she will ask about your symptoms and health. Aftertalking with you and doing a physical exam, your healthcare provider may know what is causing your dysuria. You will often have to give a urine sample. Tests of your urine (urinalysis) are done. A urinalysis may include: ???Looking at the urine sample (visual exam) ???Checking for substances (chemical exam) ???Looking at a small amount of the urine under a microscope (microscopic exam) Some parts of the urinalysis may be done in the provider's office and some in a lab. The urine sample may also be checked for bacteria and yeast (urine culture).??Your healthcare provider will tell you more about these tests if they are needed. How is dysuria treated? Treatment depends on the cause. If you have a bacterial infection, you may need antibiotics. You may be given medicines to make it easier for you to urinate and help ease pain. Your healthcare provider can tell you more about your treatment options. If not treated, symptoms may get worse. When to call your healthcare provider Call the healthcare provider right away if you have any of the following: ???Fever of?? 100.4?? F??( 38??C) or higher, or as directed by your provider ???No improvement after 3 days of treatment ???Trouble urinating because of pain ???New or increased discharge from the vagina or penis ???Rash or joint pain ???Increased back or belly pain ???Enlarged painful lymph nodes (lumps) in the groin ?? [id number] The [employer]st[employer]. All rights reserved. This information is not intended as a substitute for professional medical care. Always follow your healthcare professional's instructions. * Cirilo Mckeon D.O.: PERFORM Event Display: [facility] Note-Physician Authored Date: [id number] [facility] Pain Reassessment Entered On: 11/07/2022 17:41 CDT Performed On: 11/07/2022 17:41 CDT by Cirilo Mckeon D.O. Pain Reassessment Pain Reassessment : No change Cirilo Mckeon D.O. - 11/07/2022 17:41 CDT [Electronically Signed on 11/07/2022 05:41 PM CDT] Cirilo Mckeon D.O. * Cirilo Mckeon D.O.: PERFORM, MODIFY, MODIFY, SIGN, VERIFY Event Display: [facility] Note-Physician Authored Date: [id number] Patient: UMER BOWEN Age: 32 years Sex: Female : 1990 Associated Diagnoses: None Author: Cirilo Mckeon D.O. Basic Information Vital signs: Vital Signs 11/07/2022 17:03 CDT Temperature Temporal Artery 36.7 DegC Peripheral Pulse Rate 80 bpm Respiratory Rate 16 br/min Systolic Blood Pressure 122 mm Hg Diastolic Blood Pressure 76 mm Hg , Oxygen saturation: Basic Oxygen Information 11/07/2022 17:03 CDT Oxygen Saturation 98 % . Time seen: Date & time 11/07/2022 17:28:00. History source: Patient. Arrival mode: Private vehicle. History limitation: None. Additional information:: Chief Complaint from Nursing Triage Note : Chief Complaint Description 11/07/2022 17:08 CDT Chief Complaint Description lower abdominal pain 11/07/2022 17:03 CDT Chief Complaint Description Bladder pain started yesterday. Radiates to lower back. Feels frequency, urgency with urination. . History of Present Illness The patient presents with dysuria. The course/duration of symptoms is worsening. Radiating pain: none. The character of symptoms is sharp. The degree at onset was moderate. The degree at present is moderate. Exacerbating factors consist of Urinating. The relieving factor is none. Associated symptoms: none. Review of Systems Constitutional symptoms: no fever no chills, no sweats, no weakness. Skin symptoms: no jaundice no rash, no pruritus. Eye symptoms: no recent vision problems no discharge. ENMT symptoms: no ear pain no nasal congestion. Respiratory symptoms: no shortness of breath no cough. Cardiovascular symptoms: no chest pain no syncope. Gastrointestinal symptoms: no abdominal pain no diarrhea, no constipation. Genitourinary symptoms: Dysuria, urgency, no discharge. Musculoskeletal symptoms: no back pain no Muscle pain. Neurologic symptoms: no headache no dizziness, no altered level of consciousness. Psychiatric symptoms: no depression no sleeping problems. Endocrine symptoms: no polyuria no polydipsia, no polyphagia. Hematologic/Lymphatic symptoms: bruising tendency negative Allergy/immunologic symptoms: no seasonal allergies no food allergies. Health Status Allergies: Allergic Reactions (Selected) Severity Not Documented Penicillin- Hives. Sulfa drugs- No reactions were documented.. Past Medical/ Family/ Social History Medical history Problem List from Nurse's Notes All Problems Lupus / SNOMED CT 018369594 / Confirmed Addisons disease / SNOMED CT 184672144 / Confirmed Genital herpes / SNOMED CT 30072712 / Confirmed Depression / SNOMED CT 38349700 / Confirmed. Surgical history: Procedure History from Nurses Notes Appendectomy ([id number]).. Family history: Family History from Nurse's Notes No family history items have been selected or recorded.. Social history: Social History from Nurses Notes Alcohol Details: Former alcohol user Substance Abuse Details: Never drug user Tobacco Details: Former smoker, Smokeless Tobacco use: Never. N/A Cessation Counseling. Cigarettes . Physical Examination General: Alert. mild distress. Skin: Warm Head: Normocephalic Neck: Supple. no tenderness. Eye: Pupils are equal, round and reactive to light. extraocular movements are intact. Ears, nose, mouth and throat: Tympanic membranes clear Cardiovascular: Regular rate and rhythm. No murmur. Respiratory: Lungs are clear to auscultation. respirations are non-labored. breath sounds are equal. Chest wall: No tenderness. No deformity. Back: Nontender Musculoskeletal: Normal ROM. normal strength. Gastrointestinal: Soft. Nontender. Genitourinary: No tenderness Neurological: Alert and oriented to person, place, time, and situation. No focal neurological deficit observed. CN II-XII intact. Lymphatics: No lymphadenopathy Psychiatric: Cooperative. appropriate mood & affect. Medical Decision Making Rationale History, radiographic studies (if performed), lab testing (if performed), and exam were considered with concern for the possible conditions listed above. , bladder irriation without abnormality to UA, will culture. emperic macrobid. Follow up OB planned on sunday of this week.. Results review: Lab results : Lab View 11/07/2022 17:14 CDT [facility] Urine POC Result Negative Urine Internal Control Present IC0, IC1 [facility] Urine Preg It Consulting Director Pako Rodriguez RN [facility] Urine Preg Specimen Collection 11/25/2022 17:14 11/07/2022 17:04 CDT UA Specific [place] 1.015 UA pH 5.0 UA Leukocyte Esterase Negative UA Nitrite Negative UA Protein (Qual) Negative UA Glucose (Qual) Negative UA Ketones Negative UA Urobilinogen <1.0 UA Bilirubin Negative UA Blood Negative Performed at [facility] 11/07/2022 17:01 CDT Urinalysis It Consulting Director Pako Rodriguez RN Urinalysis Specimen Collection 11/07/2022 17:01 [facility] Urinalysis POC Color Yellow [facility] Urinalysis POC Appearance Clear . Procedure Critical care services delivered? No Impression and Plan Diagnosis Dysuria : [id number] R30.0, Discharge, Emergency medicine, Medical Discharge plan Condition: Unchanged. Prescriptions: Discharge Medications Pharmacy: nitrofurantoin macrocrystals-monohydrate 100 mg oral capsule (generic Macrobid) (Prescribe): 100 mg, 1 capsule(s), Oral, bid, for 5 day(s), 10 capsule(s), 0 Refill(s). Patient was given the following educational materials: Dysuria. Follow up with: Primary Care Physician. Counseled: Patient, Regarding diagnosis, Regarding diagnostic results, Regarding treatment plan, Regarding prescription, Patient indicated understanding of instructions. [Electronically Signed on 11/07/2022 05:40 PM CDT] Cirilo Mckeon D.O. Patient Care team information Care Team Personnel Name: Gayla Barker PATENT CLERK Member Role: Primary Care Physician Address: Address: [facility] [address], [place] [address] Name: Pako Rodriguez RN Position: [facility] Nurse Member Role: ED Nurse Name: Cirilo Mckeon D.O. Position: [facility] Physician Member Role: [facility] Provider Address: Address: [address] [place] [id number] [place]
--- OUTSIDE RECORDS SUMMARY | 2024-02-24 19:38 | XMS_ITS | Referral Summary ---
Author Organization [facility] Address [address] [address] Care Team Providers Care Buyer Name Role Phone Sheldon Delgado MD Unavailable [phone] Source Comments [facility],non-owned Affiliates and Associated Physician Practices is amultiple site organization consisting of ambulatory clinics and hospital sitesin [place], [place], [place] and [place]. This disclosure is being madepursuant to the Care Everywhere program and may not contain all information available regarding this patient. Last updated 17.[facility] [employer] Allergies Active Allergy Reactions Criticality Noted Date [...] genitalis 01/29/2019 Overview (01/29/2019): Daily suppressive therapy Social History Tobacco Use Types Packs/Day Years [...] Comments Blood Pressure 123/69 05/04/2023 12:08 PM [employer]OOTER HELPER Pulse 87 05/04/2023 12:08 PM [employer]OOTER HELPER Temperature 36.9 ??C (98.5 ??F) 05/04/2023 12:[address] Respiratory Rate 18 05/04/2023 12:08 PM SHOOTER HELPER Oxygen Saturation 100% 05/04/2023 12:08 PM [employer]OOTER HELPER Inhaled Oxygen Concentration - - Weight 79.8 kg (176 lb) 05/04/2023 12:08 PM [employer]OOTER HELPER Height 160 cm (5' 3 ) 06/16/2020 12:00 PM CDT Body Mass Index 31.18 06/16/2020 12:00 PM CDT Plan of Treatment Not on file Procedures Procedure Name Priority Date/Time Associated Diagnosis Comments PAP IG RFLX HPV ASCU Routine 01/29/2019 10:41 AM SHOOTER HELPER Encounter for gynecological examination with abnormal finding HEPATITIS C ANTIBODY Routine 10/08/2018 10:34 AM CDT Other forms of systemic lupus erythematosus, unspecified organ involvement status (HCC) Polyarthralgia Malaise and fatigue HIV-1 HIV-2 ANTIGEN/ANTIBODY STAT 09/25/2018 11:03 AM CDT from Last 3 Months or Most Recently Relevant to Health Maintenance Results * PAP IG RFLX HPV ASCU (01/29/2019 10:41 AM SHOOTER HELPER) Diagnosis [facility] INSURANCE BILL Comment: NEGATIVE FOR INTRAEPITHELIAL LESION OR MALIGNANCY. FUNGAL ORGANISMS MORPHOLOGICALLY CONSISTENT WITH KINGS SPECIES ARE PRESENT. Specimen Adequacy [facility] INSURANCE BILL Comment: Satisfactory for evaluation. ??Endocervical and/or squamous metaplastic cells (endocervical component) are present. Clinician Provided ICD10 [facility] INSURANCE BILL Comment: M32.9 Z01.411 Performed by [facility] INSURANCE BILL Comment:Darci Wilkinson totechnologist Comment . [facility] INSURANCE BILL Note [facility] INSURANCE BILL Comment: The Pap smear is a screening test designed to aid in the detection of premalignant and malignant conditions of the uterine cervix. ??It is not a diagnostic procedure and should not be used as the sole means of detecting cervical cancer. ??Both false-positive and false-negative reports do occur. ? . IGLBP CPT Code Automation [facility] INSURANCE BILL Comment: This liquid based ThinPrep(R) pap test was screened with the use of an image guided system. Note [facility] INSURANCE BILL Comment: The HPV DNA reflex criteria were not met with this specimen result therefore, no HPV testing was performed. ? . Pathology/Cytolog y PART OF UTERINE CERVIX / Unknown 01/29/2019 10:41 AM SHOOTER HELPER 01/29/2019 Narrative [facility] INSURANCE BILL - 01/30/2019 2:35 PM SHOOTER HELPER No. of containers..01 ThinPrep Vial Resulting Agency Comment [facility] performed at: [facility] ??[place] [id number] Andrey Birch MD LAB - PATHOLOGY/CYTO LOGY ORDERABLES [facility] INSURANCE BILL [address] [place] [address] * HEPATITIS C ANTIBODY (10/08/2018 10:34 AM CDT) Hepatitis C Antibody 0.2 0.0 - 0.9 s/co ratio [facility] ACCOUNT BILL Comment: ? Negative: ? < 0.8 ?Indeterminate: 0.8 - 0.9 ? Positive: ? > 0.9 ? . ?The CDC recommends that a positive HCV antibody result ?be followed up with a HCV Nucleic Acid Amplification ?test (603317). Blood BLOOD SPECIMEN / Unknown 10/08/2018 10:34 AM CDT 10/08/2018 Narrative Resulting Agency Comment Lab Testing performed at: [facility] [address] ??[facility]ly [facility] [id number] Ashlee Magallon MD LAB - CHEMISTRY GREGORY RIVERA [facility] ACCOUNT BILL [address] [place] [address] * HIV-1 HIV-2 ANTIGEN/ANTIBODY (09/25/2018 11:03 AM CDT) HIV Antigen/Antibod y 1 & 2 Non-reacti ve Non-react kaylny 09/25/2018 12:18 PM CDT [facility] Comment: Neither HIV-1 p24 Antigen nor HIV-1/HIV-2 Antibodies are detected. ? Blood BLOOD SPECIMEN / Unknown Venipuncture / Unknown 09/25/2018 11:03 AM CDT 09/25/2018 11:06 AM CDT Yaquelin Carrion MD LAB - HEMATOLOGY [place] [address] [phone] from Last 3 Months or Most Recently Relevant to Health Maintenance Care Teams Buyer Relationship Specialty Start Date End Date Sheldon Delgado MD Obstetrics and Gynecology 05/23/19
--- OUTSIDE RECORDS SUMMARY | 2024-02-24 19:38 | XMS_ITS | Continuity of Care Document ---
Author Organization [facility] Address [address] [place] [address] [id number] Care Team Providers Care Sweet Pickle Maker Name Role Phone Gayla Barker Primary Care Physician [phone] Encounter [facility] Financial Number [id number] Date(s): 04/03/23 - 04/03/[address] [id number] Encounter Diagnosis Acute COVID-19(Discharge Diagnosis) - 04/03/23 Discharge Disposition: Home or Self Care Attending Physician: Kristie Hatch MD Allergies, Adverse Reactions, Alerts Substance Reaction Severity Status penicillin Hives Active methylprednisolone-neomycin topical Active sulfa drugs Active Medications Albuterol (Eqv-ProAir HFA) 90 mcg/inh inhalation aerosol 2 puff(s), Inhalation, qid, 1 each, Inhaler, 0, 0, Slow Breath inhale slowly and deeply, Route to Pharmacy Electronically, [facility]/pharmacy #[id number], [id number], 157, cm, 04/18/22 13:37:00 TOOL AND DIE MAKER/DESIGNER, Height, 79.5, kg, 04/18/22 13:37:00 TOOL AND DIE MAKER/DESIGNER, Weight, stated Start Date: 04/03/23 Status: Ordered hydroxychloroquine 0 Start Date: 11/16/21 Status: Ordered predniSONE 0 Start Date: 11/16/21 Status: Ordered predniSONE 10 mg oral tablet 10 mg, 1 tablet(s), Oral, daily, 10 tablet(s), Tablet(s), 0, 0, Route to Pharmacy Electronically, [id number], [id number], 157, cm, 04/18/2022 1337, Height, 79.5, kg, 04/18/2022 1337, Weight, stated Start Date: 04/18/22 Stop Date: 04/28/22 Status: Ordered sertraline 25 mg oral tablet 0 Start Date: 11/16/21 Status: Ordered Problem List Condition Confirmation Course Effective Dates Status Health [facility] Informant Genital herpes Confirmed Active Procedures Procedure Date Related Diagnosis Body Site Status Appendectomy Completed Vital Signs Most recent to oldest [Reference Range]: 1 Temperature Temporal Artery [35.8-38 Deg C] 36.7 DegC (04/03/23 2:57 PM) Peripheral Pulse Rate [60-100 bpm] 70 bp m (04/03/23 2:57 PM) Respiratory Rate [14-22 br/min] 20 br/mi n (04/03/23 2:57 PM) Social History Social History Type Response Alcohol Former alcohol user Substance Abuse Never drug user Smoking Status Former smoker;Never; Tobacco Cessation Counseling Requested N/A; Type: Cigarettes entered on: 04/03/23 Sex Hospital Discharge Instructions Patient Education 04/03/2023 15:44:44 Coronavirus Disease 2019: Caring for Yourself and Others Coronavirus Disease 2019 (COVID-19): Caring for Yourself or Others If you or a household member have symptoms of COVID-19, follow these guidelines for preventing spread of the virus and managing symptoms. This is regardless of your vaccination status. If you have COVID-19 symptoms ???Stay home. Call your healthcare provider and tell them you have symptoms.. Do this before going to any hospital or clinic. Follow your provider's instructions. You may be advised to isolate yourself at home. This is called self-isolation. You may also be told to stay at least 6 feet from others to prevent the spread of COVID-19. This is called social distancing. ???Stay away from work, school, and public places. Limit physical contact with family members. Limit visitors. Don't kiss anyone or share eating or drinking utensils. Clean surfaces you touch with disinfectant. This is to help prevent the virus from spreading. ???If you need to cough or sneeze, do it into a tissue. Then throw the tissue into the trash. If you don't have tissues, cough or sneeze into the bend of your elbow. ???Wear a cloth face mask with 2 or more layers of washable, breathable fabric and a nose wire while in public or when indoors with people who don't live with you. Or you can wear a disposable paper mask with a cloth mask on top. Wear the mask so that it covers both your nose and mouth. ???Don???t share food or personal items with people in your household. This includes items like eating and drinking utensils, towels, and bedding. ???If you need to go to a hospital or clinic, expect that the healthcare staff will wear protectiveequipment such as masks, gowns, gloves, and eye protection. You may be advised to wait in or enter through a separate area. This is to prevent the possible virus from spreading. ???Tell the healthcare staff about recent travel. This includes local travel on public transport. Staff may need to find other people you have been in contact with. ???Follow all instructions the healthcare staff give you. If you have been diagnosed with COVID-19 ???Stay home and start self-isolation. Don???t leave your home unless you need to get medical care.Don't go to work, school, or public areas. Don't use public transportation or taxis. ???Follow all instructions from your healthcare provider. Call your healthcare provider???s office before going. They can prepare and give you instructions. This will help prevent the virus from spreading. ???If you need to go to a hospital or clinic, expect that the healthcare staff will wear protectiveequipment such as masks, gowns, gloves, and eye protection. You may be advised to wait in or enter through a separate area. This is to prevent the possible virus from spreading. ???Wear a face mask with 2 or more layers and a nose wire. Use either a cloth mask with layers of tightly woven, breathable fabric or a disposable paper mask with a cloth mask on top. This is to protect other people from your germs. If you are not able to wear a mask, your caregivers should. Wear the mask so that it covers both your nose and mouth. ???Stay away from other people in your home. ???Stay away from pets and other animals. ???Don???t share food or personal items with people in your household. This includes items like eating and drinking utensils, towels, and bedding. ???If you need to cough or sneeze, do it into a tissue. Then throw the tissue into the trash. If you don't have tissues, cough or sneeze into the bend of your elbow. ???Wash your hands often. Self-care at home?? Prevention Several vaccines are available to prevent COVID-19 or reduce its severity. These vaccine reduce howsevere the illness will be if you get the virus. No vaccine is ever 100% effective in preventing any illness, but the COVID-19 vaccines work well and are safe. One vaccine is available for people as young as 5. Expert groups, including ACOG and CDC, advise or people to be vaccinated. Talk with your healthcare provider about which vaccine is best for you and your family. Treatment Current treatment is mainly aimed at helping your body while it fights the virus. This is known as supportive care. For serious COVID-19, you may need to stay in the hospital. Supportive care includes: ???Getting rest. This helps your body fight the illness. ???Staying hydrated. Drinking liquids is the best way to prevent dehydration. Try to drink 6 to 8 glasses of liquids every day, or as advised by your provider. Also check with your provider about which fluids are best for you. Don't drink fluids that contain caffeine or alcohol. ???Taking pqec-buz-xlosygj (OTC) pain medicine. These are used to help ease pain and reduce fever. Follow your healthcare provider's instructions for which OTC medicine to use. If you've been treated for suspected or confirmed COVID-19 , follow all of your healthcare team's instructions. This will include when it's OK to stop self- isolation. You may also get instructions onposition changes to help your breathing, such as lying on your belly (prone positioning). If you were treated at a hospital and discharged, you may be sent home with a pulse oximeter. This is a smallelectronic device that you clip on your fingertip. It measures the amount of oxygen in your body. Follow your healthcare team's instructions on its use, how they will be in touch with you, and let you know when to call them. The FDA approved monoclonal antibody therapy for emergency investigational use in certain people who have a positive COVID-19 viral test and have mild to moderate symptoms but are not in the hospital. Your healthcare provider will advise you on whether monoclonal antibody therapy is appropriate foryou. It's not approved to prevent COVID-19. It's approved for people 12 years and older who weigh at least 88 pounds (about 40 kgs) and are at high risk for severe COVID-19 and a hospital stay. This includes people who are 65 years and older and people with certain chronic conditions. Monoclonal antibody therapy is not approved for people who: ???Are in the hospital with COVID-19, or ???Need oxygen therapy for COVID-19, or ???Need oxygen therapy for a chronic condition and need to have oxygen flow increased because of COVID-19 If you've had confirmed COVID-19, your healthcare team may ask you to consider donating your plasma. This is called COVID-19 convalescent plasma donation. Plasma from people fully recovered from COVID-19 may contain antibodies to help fight COVID-19 in people who are currently seriously ill with the disease. Experts don't know the safety of COVID-19 convalescent plasma or how well it works. Research continues. The FDA has approved it for emergency use in certain people with serious or life-threatening COVID-19. Home care for a sick person?Follow all instructions from healthcare staff. ???Wash your hands often. ???Wear protective clothing as advised. ???Make sure the sick person wears a mask. If they can't wear a mask, don't stay in the same room with the person. If you must be in the same room, wear a face mask. When wearing a mask, make sure that it covers both the nose and mouth. ???Keep track of the sick person???s symptoms. ???Clean home surfaces often with disinfectant. This includes phones, kitchen counters, fridge doorhandle, bathroom surfaces, and others. ???Don???t let anyone share household items with the sick person. This includes eating and drinkingtools, towels, sheets, or blankets. ???Clean fabrics and laundry thoroughly. ???Keep other people and pets away from the sick person. When you can stop self-isolation When you are sick with COVID-19, you should stay away from other people. This is called self-isolation. For normally healthy children or adults with COVID-19 symptoms, CDC advises stopping self-isolationwhen all 3 of these are true: 1. You have had no fever for at least 24 hours. This means no fever without medicine that reduces fever, such as acetaminophen, for at least 24 hours. 2. Your symptoms such as cough or trouble breathing have improved. 3. It has been at least 10 days since your first symptoms started. For people who have COVID-19 but no symptoms , isolation can stop 10 days after the first positive test. If you have a weak immune system and COVID-19, or if you've had severe COVID-19, your instructions on when to stop isolation will be somewhat different. Some conditions and treatments can cause a weak immune system. These include cancer treatment, bone marrow or organ transplants, and conditions such as HIV or other immune system disorders. You may be advised to self-isolate up to 20 days after your symptoms first started. Your healthcare provider may want to retest you for COVID-19. Follow your provider's instructions. CDC mask guidance Consider the CDC's guidance and your local community's instructions on face masks. ???Cloth masks may help prevent people who have COVID-19 from spreading the virus to others. ???Cloth masks are most likely to reduce COVID-19 spread when masks are widely used by people who are out in the public. ???Wear a mask inside your house if you live with someone who has symptoms of COVID-19 or has tested positive for COVID-19. ???CDC advises all people older than 2 who are not fully vaccinated to wear a mask and stay 6 feet away from others while in public. ???CDC advises people with a weak immune system, even if fully vaccinated, to continue wearing masks and to stay 6 feet away from others while in public. ???In kindergarten through grade 12 classes, CDC advises indoor masking for all teachers, staff, students ages 2 and older, and visitors to schools, regardless of vaccination status. ???Like other viruses, the virus that causes COVID-19 changes (mutates) all the time. This leads tovariants that are easily spread, including the delta variant. To protect against variants, CDC advises all people over age 2, including those who are fully vaccinated, to wear a mask indoors in public settings if you are in an area of high numbers of COVID-19 cases. See the [facility]'s county data website for current transmission information in your area. Certain people should not wear a face mask. This includes: ???Children younger than 2 years old ???Anyone with a health, developmental, or mental health condition that can be made worse by wearing a mask ???Anyone who is unconscious or unable to remove the face covering without help See the CDC's mask guidance. When to call your healthcare provider Call your healthcare provider right away if a sick person has any of these: ???Trouble breathing ???Pain or pressure in chest If a sick person has any of these, call 911: ???Trouble breathing that gets worse ???Pain or pressure in chest that gets worse ???Blue tint to lips or face ???Fast or irregular heartbeat ???Confusion or trouble waking ???Fainting or loss of consciousness ???Coughing up blood Going home from the hospital If you were diagnosed with COVID-19 and were recently discharged from the hospital: ???Follow the instructions above for self-care and isolation. ???Follow the hospital healthcare team???s specific instructions. ???Ask questions if anything is unclear to you. Write down answers so you remember them. Date last modified: 12/29/2020 ?? [id number] [employer]. All rights reserved. This information is not intended as a substitute for professional medical care. Always follow your healthcare professional's instructions. Nurse Urgent care center Note * Kristie Hatch MD: PERFORM Event Display: [facility] Note-Nursing Authored Date: [id number] [facility] Pending Results Entered On: 04/03/2023 15:45 TOOL AND DIE MAKER/DESIGNER Performed On: 04/03/2023 15:45 TOOL AND DIE MAKER/DESIGNER by Kristie Hatch MD [facility] Pending Results [facility] Pending Order Completion : No Kristie Hatch MD - 04/03/2023 15:45 TOOL AND DIE MAKER/DESIGNER * Sherry Moraes RN: PERFORM Event Display: [facility] Note-Nursing Authored Date: [id number] Urgent Care Triage Entered On: 04/03/2023 15:01 TOOL AND DIE MAKER/DESIGNER Performed On: 04/03/2023 14:57 TOOL AND DIE MAKER/DESIGNER by Sherry Moraes RN [facility] Triage Temperature Temporal Artery : 36.7 DegC(Converted to: 98.1 DegF) Peripheral Pulse Rate : 70 bpm Oxygen Saturation : 98 % Chief Complaint Description : c/o cough with bilateral ear pain and sore throat. +congestion, nasaldrainage.+[place]. OTC medication does not help symptoms. Difficulty sleeping at night. Started on Sunday. +sick contacts. Sherry Moraes RN - 04/03/2023 15:01 TOOL AND DIE MAKER/DESIGNER Sherry Moraes RN - 04/03/2023 15:01 TOOL AND DIE MAKER/DESIGNER DCP GENERIC CODE Tracking Group : [place] [employer] Tracking Acuity : 4 - Less Urgent Sherry Moraes RN - 04/03/2023 14:57 TOOL AND DIE MAKER/DESIGNER Respiratory Rate : 20 br/min [facility] Oxygen Therapy : Room air Pain Symptoms : No Sherry Moraes RN - 04/03/2023 14:57 TOOL AND DIE MAKER/DESIGNER (As Of: 04/03/2023 15:02 TOOL AND DIE MAKER/DESIGNER) Problems(Active) Addisons disease (SNOMED CT :828646737 ) Name of Problem: Addisons disease ; Recorder: Nishant Arguello RN; Confirmation: Confirmed ; Classification: Patient Stated ; Code: [id number] ; Contributor System: [place] ; Last Updated: 11/16/2021 10:27 CDT ; Life Cycle Date: 11/16/2021 ; Life Cycle Status: Active ; Vocabulary: SNOMED CT Depression (SNOMED CT :22515781 ) Name of Problem: Depression ; Recorder: Nishant Arguello RN; Confirmation: Confirmed ; Classification: Patient Stated ; Code: [id number] ; Contributor System: [place] ; Last Updated: 11/16/2021 10:27 CDT ; Life Cycle Date: 11/16/2021 ; Life Cycle Status: Active ; Vocabulary: SNOMED CT Former smoker (SNOMED CT :29170058 ) Name of Problem: Former smoker ; Recorder: System, System; Confirmation: Confirmed ; Classification: Patient Stated ; Code: [id number] ; Last Updated: 04/03/2023 14:57 TOOL AND DIE MAKER/DESIGNER ; Life Cycle Date: 04/03/2023 ; Life Cycle Status: Active ; Vocabulary: SNOMED CT Genital herpes (SNOMED CT :53634692 ) Name of Problem: Genital herpes ; Recorder: Minal Arreguin NP; Confirmation: Confirmed ; Classification: Medical ; Code: [id number] ; Contributor System: [place] ; Last Updated: 08/08/2017 16:00CDT ; Life Cycle Date: 08/08/2017 ; Life Cycle Status: Active ; Vocabulary: SNOMED CT Lupus (SNOMED CT :478878580 ) Name of Problem: Lupus ; Recorder: Nishant Arguello RN; Confirmation: Confirmed ; Classification: Patient Stated ; Code: [id number] ; Contributor System: [place] ; Last Updated: 11/16/2021 10:27 CDT ; Life Cycle Date: 11/16/2021 ; Life Cycle Status: Active ; Vocabulary: SNOMED CT Diagnoses(Active) Cough Date: 04/03/2023 ; Diagnosis Type: Reason For Visit ; Confirmation: Complaint of ; Clinical Dx: Cough; Classification: Medical ; Clinical Service: Emergency medicine ; Code: PNED ; Probability: 0 ; Diagnosis Code: [id number] - Procedure History (As Of: 04/03/2023 15:02 TOOL AND DIE MAKER/DESIGNER) Anesthesia Minutes: 0 ; Procedure Name: Appendectomy ; Procedure Minutes: 0 Document Allergies/Home Meds Anticoagulant Therapy in Last 7 Days : No Sherry Moraes RN - 04/03/2023 14:57 TOOL AND DIE MAKER/DESIGNER (As Of: 04/03/2023 15:01 TOOL AND DIE MAKER/DESIGNER) Allergies (Active) methylprednisolone-neomycin topical Estimated Onset Date: Unspecified ; Created By: Sherry Moraes RN; Reaction Status: Active ; Category: Drug ; Substance: methylprednisolone-neomycin topical ; Type: Allergy ; Updated By: Tori Moraes RN; Reviewed Date: 04/03/2023 14:58 TOOL AND DIE MAKER/DESIGNER penicillin Estimated Onset Date: Unspecified ; Reactions: Hives ; Created By: Marlene Cardoza Computer Railway Patrol Officer; Reaction Status: Active ; Category: Drug ; Substance: penicillin ; Type: Allergy ; Updated By: Marlene Cardoza Computer Railway Patrol Officer; Reviewed Date: 04/03/2023 14:58 TOOL AND DIE MAKER/DESIGNER sulfa drugs Estimated Onset Date: Unspecified ; Created By: Pako Rodriguez RN; Reaction Status: Active ; Category: Drug ; Substance: sulfa drugs ; Type: Allergy ; Updated By: Pako Rodriguez RN; Reviewed Date: 04/03/2023 14:58 TOOL AND DIE MAKER/DESIGNER Medication List (As Of: 04/03/2023 15:01 TOOL AND DIE MAKER/DESIGNER) Prescription/Discharge Order predniSONE : predniSONE ; Status: Prescribed ; Ordered As Mnemonic: predniSONE 10 mg oral tablet ; Simple Display Line: 10 mg, 1 tablet(s), Oral, daily, for 10 day(s), 10 tablet(s), 0 Refill(s) ; Ordering Provider: Cirilo Mckeon D.O.; Catalog Code: predniSONE ; Order Dt/Tm: 04/18/2022 14:28 TOOL AND DIE MAKER/DESIGNER budesonide nasal : budesonide nasal ; Status: Completed ; Ordered As Mnemonic: Rhinocort Aqua 32 mcg/inh nasal spray; Simple Display Line: 2 spray(s), Nasal, daily, 27 mL, 0 Refill(s) ; Ordering Provider: Ernie Payne DO; Catalog Code: budesonide nasal ; Order Dt/Tm: 02/08/2022 14:01 TOOL AND DIE MAKER/DESIGNER Home Meds hydroxychloroquine : hydroxychloroquine ; Status: Documented ; Ordered As Mnemonic: hydroxychloroquine ; Simple Display Line: 0 Refill(s) ; Catalog Code: hydroxychloroquine ; Order Dt/Tm: 11/16/2021 10:26 CDT sertraline : sertraline ; Status: Documented ; Ordered As Mnemonic: sertraline 25 mg oral tablet ; Simple Display Line: 0 Refill(s) ; Catalog Code: sertraline ; Order Dt/Tm: 11/16/2021 10:26 CDT predniSONE : predniSONE ; Status: Documented ; Ordered As Mnemonic: predniSONE ; Simple Display Line: 0 Refill(s) ; Catalog Code: predniSONE ; Order Dt/Tm: 11/16/2021 10:26 CDT [facility] General Assessment/Social Hx Child/Parent Domestic Concerns : None [facility] Plan of Care Discussed : Yes Sherry Moraes RN - 04/03/2023 14:57 TOOL AND DIE MAKER/DESIGNER Social History (As Of: 04/03/2023 15:01 TOOL AND DIE MAKER/DESIGNER) Tobacco: Former smoker, Smokeless Tobacco use: Never. N/A Cessation Counseling. Cigarettes (Last Updated: 04/03/2023 14:57 TOOL AND DIE MAKER/DESIGNER by Sherry Moraes RN) Alcohol: Former alcohol user (Last Updated: 04/03/2023 14:57 TOOL AND DIE MAKER/DESIGNER by Sherry Moraes RN) Substance Abuse: Never drug user (Last Updated: 04/03/2023 14:57 TOOL AND DIE MAKER/DESIGNER by Sherry Moraes RN) Fall Risk Assessment Peds with adult : No History of Fall in Last 3 Months [place] : No Sherry Moraes RN - 04/03/2023 14:57 TOOL AND DIE MAKER/DESIGNER Novel Coronavirus Assessment Novel Coronavirus Current Fever : Yes Novel Coronavirus Exposed COVID 14 days : Yes Sherry Moraes RN - 04/03/2023 14:57 TOOL AND DIE MAKER/DESIGNER Note * Kristie Hatch MD: PERFORM Event Display: [facility] Patient Summary Authored Date: [id number] UMER BOWEN :1990 Visit Date:04/03/2023 [facility]gent [facility] Discharge Instructions Patient Information Name:UMER BOWEN Dianelys Address: [address] [place], [place] [id number] Sex:Female Date of :1990 Location:[facility] Registration Date and Time:04/03/2023 14:50 TOOL AND DIE MAKER/DESIGNER Primary Care Physician: Gayla Barker NP, Attending Physician: Kristie Hatch MD, Location Information ?[facility] [place]?[address]? Your Diagnosis Diagnosis ?Acute COVID-19?Discharge ?Cough?Reason For Visit ?? Your Care Team Attending Physician - Kristie Hatch MD Primary Care Physician - Gayla Barker REFRIGERATION INSTALLER Discharge Vitals Vital Signs Temperature Temporal Artery: 36.7 DegC Peripheral Pulse Rate: 70 bpm Respiratory Rate: 20 br/min Oxygen Saturation: 98 % What's Next? You Need to Schedule the Following Appointments Follow Up with??if symptoms worsen or fail to improve When?? Follow Up with??Gayla Barker When??In 0 days Where: [address] , [place] [address] [facility] (1) Referral Information Referral Information ? No Results [...] and pharmacist. What How Much When Instructions Unchanged hydroxychloroquine Unchanged predniSONE Unchanged predniSONE (predniSONE 10 mg oral tablet) 1 tablet(s) By mouth Daily Duration: 10 day(s) Unchanged sertraline (sertraline 25 mg oral tablet) Medications and Immunizations Administered Medication Administrations ? No Results Found ? Allergies methylprednisolone-neomycin topical penicillin??(Hives) sulfa drugs Labs Test Name Test Result Date/TimeInfluenza A RNA Negative 04/03/2023 15:03 [employer]OL AND DIE MAKER/DESIGNER Influenza B RNA Negative 04/03/2023 15:03 TOOL AND DIE MAKER/DESIGNER SARS-CoV-2 (COVID-19) RNA Pos (Abnormal) 04/03/2023 15:01 TOOL AND DIE MAKER/DESIGNER [facility]/03/2023 15:03 TOOL AND DIE MAKER/DESIGNER Radiology ? COMPLETED RADIOLOGY IMAGING STUDIES: ? No Imaging Results in the last 36 hours Education Materials Coronavirus Disease 2019 (COVID-19): Caring for Yourself or Others If you or a household member have symptoms of COVID-19, follow these guidelines for preventing spread of the virus and managing symptoms. This is regardless of your vaccination status. If you have COVID-19 symptoms ???Stay home. Call your healthcare provider and tell them you have symptoms.. Do this before going to any hospital or clinic. Follow your provider's instructions. You may be advised to isolate yourself at home. This is called self-isolation. You may also be told to stay at least 6 feet from others to prevent the spread of COVID-19. This is called social distancing. ???Stay away from work, school, and public places. Limit physical contact with family members. Limit visitors. Don't kiss anyone or share eating or drinking utensils. Clean surfaces you touch with disinfectant. This is to help prevent the virus from spreading. ???If you need to cough or sneeze, do it into a tissue. Then throw the tissue into the trash. If you don't have tissues, cough or sneeze into the bend of your elbow. ???Wear a cloth face mask with 2 or more layers of washable, breathable fabric and a nose wire while in public or when indoors with people who don't live with you. Or you can wear a disposable paper mask with a cloth mask on top. Wear the mask so that it covers both your nose and mouth. ???Don???t share food or personal items with people in your household. This includes items like eating and drinking utensils, towels, and bedding. ???If you need to go to a hospital or clinic, expect that the healthcare staff will wear protectiveequipment such as masks, gowns, gloves, and eye protection. You may be advised to wait in or enter through a separate area. This is to prevent the possible virus from spreading. ???Tell the healthcare staff about recent travel. This includes local travel on public transport. Staff may need to find other people you have been in contact with. ???Follow all instructions the healthcare staff give you. If you have been diagnosed with COVID-19 ???Stay home and start self-isolation. Don???t leave your home unless you need to get medical care.Don't go to work, school, or public areas. Don't use public transportation or taxis. ???Follow all instructions from your healthcare provider. Call your healthcare provider???s office before going. They can prepare and give you instructions. This will help prevent the virus from spreading. ???If you need to go to a hospital or clinic, expect that the healthcare staff will wear protectiveequipment such as masks, gowns, gloves, and eye protection. You may be advised to wait in or enter through a separate area. This is to prevent the possible virus from spreading. ???Wear a face mask with 2 or more layers and a nose wire. Use either a cloth mask with layers of tightly woven, breathable fabric or a disposable paper mask with a cloth mask on top. This is to protect other people from your germs. If you are not able to wear a mask, your caregivers should. Wear the mask so that it covers both your nose and mouth. ???Stay away from other people in your home. ???Stay away from pets and other animals. ???Don???t share food or personal items with people in your household. This includes items like eating and drinking utensils, towels, and bedding. ???If you need to cough or sneeze, do it into a tissue. Then throw the tissue into the trash. If you don't have tissues, cough or sneeze into the bend of your elbow. ???Wash your hands often. Self-care at home?? Prevention Several vaccines are available to prevent COVID-19 or reduce its severity. These vaccine reduce howsevere the illness will be if you get the virus. No vaccine is ever 100% effective in preventing any illness, but the COVID-19 vaccines work well and are safe. One vaccine is available for people as young as 5. Expert groups, including ACOG and CDC, advise or people to be vaccinated. Talk with your healthcare provider about which vaccine is best for you and your family. Treatment Current treatment is mainly aimed at helping your body while it fights the virus. This is known as supportive care. For serious COVID-19, you may need to stay in the hospital. Supportive care includes: ???Getting rest. This helps your body fight the illness. ???Staying hydrated. Drinking liquids is the best way to prevent dehydration. Try to drink 6 to 8 glasses of liquids every day, or as advised by your provider. Also check with your provider about which fluids are best for you. Don't drink fluids that contain caffeine or alcohol. ???Taking sdvu-ikc-rexdihe (OTC) pain medicine. These are used to help ease pain and reduce fever. Follow your healthcare provider's instructions for which OTC medicine to use. If you've been treated for suspected or confirmed COVID-19 , follow all of your healthcare team's instructions. This will include when it's OK to stop self- isolation. You may also get instructions onposition changes to help your breathing, such as lying on your belly (prone positioning). If you were treated at a hospital and discharged, you may be sent home with a pulse oximeter. This is a smallelectronic device that you clip on your fingertip. It measures the amount of oxygen in your body. Follow your healthcare team's instructions on its use, how they will be in touch with you, and let you know when to call them. The FDA approved monoclonal antibody therapy for emergency investigational use in certain people who have a positive COVID-19 viral test and have mild to moderate symptoms but are not in the hospital. Your healthcare provider will advise you on whether monoclonal antibody therapy is appropriate foryou. It's not approved to prevent COVID-19. It's approved for people 12 years and older who weigh at least 88 pounds (about 40 kgs) and are at high risk for severe COVID-19 and a hospital stay. This includes people who are 65 years and older and people with certain chronic conditions. Monoclonal antibody therapy is not approved for people who: ???Are in the hospital with COVID-19, or ???Need oxygen therapy for COVID-19, or ???Need oxygen therapy for a chronic condition and need to have oxygen flow increased because of COVID-19 If you've had confirmed COVID-19, your healthcare team may ask you to consider donating your plasma. This is called COVID-19 convalescent plasma donation. Plasma from people fully recovered from COVID-19 may contain antibodies to help fight COVID-19 in people who are currently seriously ill with the disease. Experts don't know the safety of COVID-19 convalescent plasma or how well it works. Research continues. The FDA has approved it for emergency use in certain people with serious or life-threatening COVID-19. Home care for a sick person?Follow all instructions from healthcare staff. ???Wash your hands often. ???Wear protective clothing as advised. ???Make sure the sick person wears a mask. If they can't wear a mask, don't stay in the same room with the person. If you must be in the same room, wear a face mask. When wearing a mask, make sure that it covers both the nose and mouth. ???Keep track of the sick person???s symptoms. ???Clean home surfaces often with disinfectant. This includes phones, kitchen counters, fridge doorhandle, bathroom surfaces, and others. ???Don???t let anyone share household items with the sick person. This includes eating and drinkingtools, towels, sheets, or blankets. ???Clean fabrics and laundry thoroughly. ???Keep other people and pets away from the sick person. When you can stop self-isolation When you are sick with COVID-19, you should stay away from other people. This is called self-isolation. For normally healthy children or adults with COVID-19 symptoms, CDC advises stopping self-isolationwhen all 3 of these are true: 1. You have had no fever for at least 24 hours. This means no fever without medicine that reduces fever, such as acetaminophen, for at least 24 hours. 2. Your symptoms such as cough or trouble breathing have improved. 3. It has been at least 10 days since your first symptoms started. For people who have COVID-19 but no symptoms , isolation can stop 10 days after the first positive test. If you have a weak immune system and COVID-19, or if you've had severe COVID-19, your instructions on when to stop isolation will be somewhat different. Some conditions and treatments can cause a weak immune system. These include cancer treatment, bone marrow or organ transplants, and conditions such as HIV or other immune system disorders. You may be advised to self-isolate up to 20 days after your symptoms first started. Your healthcare provider may want to retest you for COVID-19. Follow your provider's instructions. CDC mask guidance Consider the CDC's guidance and your local community's instructions on face masks. ???Cloth masks may help prevent people who have COVID-19 from spreading the virus to others. ???Cloth masks are most likely to reduce COVID-19 spread when masks are widely used by people who are out in the public. ???Wear a mask inside your house if you live with someone who has symptoms of COVID-19 or has tested positive for COVID-19. ???CDC advises all people older than 2 who are not fully vaccinated to wear a mask and stay 6 feet away from others while in public. ???CDC advises people with a weak immune system, even if fully vaccinated, to continue wearing masks and to stay 6 feet away from others while in public. ???In kindergarten through grade 12 classes, CDC advises indoor masking for all teachers, staff, students ages 2 and older, and visitors to schools, regardless of vaccination status. ???Like other viruses, the virus that causes COVID-19 changes (mutates) all the time. This leads tovariants that are easily spread, including the delta variant. To protect against variants, CDC advises all people over age 2, including those who are fully vaccinated, to wear a mask indoors in public settings if you are in an area of high numbers of COVID-19 cases. See the [facility]'s county data website for current transmission information in your area. Certain people should not wear a face mask. This includes: ???Children younger than 2 years old ???Anyone with a health, developmental, or mental health condition that can be made worse by wearing a mask ???Anyone who is unconscious or unable to remove the face covering without help See the CDC's mask guidance. When to call your healthcare provider Call your healthcare provider right away if a sick person has any of these: ???Trouble breathing ???Pain or pressure in chest If a sick person has any of these, call 911: ???Trouble breathing that gets worse ???Pain or pressure in chest that gets worse ???Blue tint to lips or face ???Fast or irregular heartbeat ???Confusion or trouble waking ???Fainting or loss of consciousness ???Coughing up blood Going home from the hospital If you were diagnosed with COVID-19 and were recently discharged from the hospital: ???Follow the instructions above for self-care and isolation. ???Follow the hospital healthcare team???s specific instructions. ???Ask questions if anything is unclear to you. Write down answers so you remember them. Date last modified: 12/29/2020 ?? 6400-3232 [employer]. All rights reserved. This information is not intended as a substitute for professional medical care. Always follow your healthcare professional's instructions. In need of a Physician? Call [facility]'s Physician Referral Service [phone]. Thank you for choosing [facility]???s Urgent Care for your [...] follow up instructions and have verbalized understanding. Patient/Remote Sensing Scientist Signature: Provider Signature: Date/Time:04/03/2023 15:45:42 * Kristie Hatch MD: PERFORM, SIGN, VERIFY Event Display: [facility] Patient Education Authored Date: [id number] Infec Dz Coronavirus Disease 2019 (COVID-19): Caring for Yourself or Others If you or a household member have symptoms of COVID-19, follow these guidelines for preventing spread of the virus and managing symptoms. This is regardless of your vaccination status. If you have COVID-19 symptoms ???Stay home. Call your healthcare provider and tell them you have symptoms.. Do this before going to any hospital or clinic. Follow your provider's instructions. You may be advised to isolate yourself at home. This is called self-isolation. You may also be told to stay at least 6 feet from others to prevent the spread of COVID-19. This is called social distancing. ???Stay away from work, school, and public places. Limit physical contact with family members. Limit visitors. Don't kiss anyone or share eating or drinking utensils. Clean surfaces you touch with disinfectant. This is to help prevent the virus from spreading. ???If you need to cough or sneeze, do it into a tissue. Then throw the tissue into the trash. If you don't have tissues, cough or sneeze into the bend of your elbow. ???Wear a cloth face mask with 2 or more layers of washable, breathable fabric and a nose wire while in public or when indoors with people who don't live with you. Or you can wear a disposable paper mask with a cloth mask on top. Wear the mask so that it covers both your nose and mouth. ???Don???t share food or personal items with people in your household. This includes items like eating and drinking utensils, towels, and bedding. ???If you need to go to a hospital or clinic, expect that the healthcare staff will wear protectiveequipment such as masks, gowns, gloves, and eye protection. You may be advised to wait in or enter through a separate area. This is to prevent the possible virus from spreading. ???Tell the healthcare staff about recent travel. This includes local travel on public transport. Staff may need to find other people you have been in contact with. ???Follow all instructions the healthcare staff give you. If you have been diagnosed with COVID-19 ???Stay home and start self-isolation. Don???t leave your home unless you need to get medical care.Don't go to work, school, or public areas. Don't use public transportation or taxis. ???Follow all instructions from your healthcare provider. Call your healthcare provider???s office before going. They can prepare and give you instructions. This will help prevent the virus from spreading. ???If you need to go to a hospital or clinic, expect that the healthcare staff will wear protectiveequipment such as masks, gowns, gloves, and eye protection. You may be advised to wait in or enter through a separate area. This is to prevent the possible virus from spreading. ???Wear a face mask with 2 or more layers and a nose wire. Use either a cloth mask with layers of tightly woven, breathable fabric or a disposable paper mask with a cloth mask on top. This is to protect other people from your germs. If you are not able to wear a mask, your caregivers should. Wear the mask so that it covers both your nose and mouth. ???Stay away from other people in your home. ???Stay away from pets and other animals. ???Don???t share food or personal items with people in your household. This includes items like eating and drinking utensils, towels, and bedding. ???If you need to cough or sneeze, do it into a tissue. Then throw the tissue into the trash. If you don't have tissues, cough or sneeze into the bend of your elbow. ???Wash your hands often. Self-care at home?? Prevention Several vaccines are available to prevent COVID-19 or reduce its severity. These vaccine reduce howsevere the illness will be if you get the virus. No vaccine is ever 100% effective in preventing any illness, but the COVID-19 vaccines work well and are safe. One vaccine is available for people as young as 5. Expert groups, including ACOG and CDC, advise or people to be vaccinated. Talk with your healthcare provider about which vaccine is best for you and your family. Treatment Current treatment is mainly aimed at helping your body while it fights the virus. This is known as supportive care. For serious COVID-19, you may need to stay in the hospital. Supportive care includes: ???Getting rest. This helps your body fight the illness. ???Staying hydrated. Drinking liquids is the best way to prevent dehydration. Try to drink 6 to 8 glasses of liquids every day, or as advised by your provider. Also check with your provider about which fluids are best for you. Don't drink fluids that contain caffeine or alcohol. ???Taking koux-qrm-onsjtfb (OTC) pain medicine. These are used to help ease pain and reduce fever. Follow your healthcare provider's instructions for which OTC medicine to use. If you've been treated for suspected or confirmed COVID-19 , follow all of your healthcare team's instructions. This will include when it's OK to stop self- isolation. You may also get instructions onposition changes to help your breathing, such as lying on your belly (prone positioning). If you were treated at a hospital and discharged, you may be sent home with a pulse oximeter. This is a smallelectronic device that you clip on your fingertip. It measures the amount of oxygen in your body. Follow your healthcare team's instructions on its use, how they will be in touch with you, and let you know when to call them. The FDA approved monoclonal antibody therapy for emergency investigational use in certain people who have a positive COVID-19 viral test and have mild to moderate symptoms but are not in the hospital. Your healthcare provider will advise you on whether monoclonal antibody therapy is appropriate foryou. It's not approved to prevent COVID-19. It's approved for people 12 years and older who weigh at least 88 pounds (about 40 kgs) and are at high risk for severe COVID-19 and a hospital stay. This includes people who are 65 years and older and people with certain chronic conditions. Monoclonal antibody therapy is not approved for people who: ???Are in the hospital with COVID-19, or ???Need oxygen therapy for COVID-19, or ???Need oxygen therapy for a chronic condition and need to have oxygen flow increased because of COVID-19 If you've had confirmed COVID-19, your healthcare team may ask you to consider donating your plasma. This is called COVID-19 convalescent plasma donation. Plasma from people fully recovered from COVID-19 may contain antibodies to help fight COVID-19 in people who are currently seriously ill with the disease. Experts don't know the safety of COVID-19 convalescent plasma or how well it works. Research continues. The FDA has approved it for emergency use in certain people with serious or life-threatening COVID-19. Home care for a sick person?Follow all instructions from healthcare staff. ???Wash your hands often. ???Wear protective clothing as advised. ???Make sure the sick person wears a mask. If they can't wear a mask, don't stay in the same room with the person. If you must be in the same room, wear a face mask. When wearing a mask, make sure that it covers both the nose and mouth. ???Keep track of the sick person???s symptoms. ???Clean home surfaces often with disinfectant. This includes phones, kitchen counters, fridge doorhandle, bathroom surfaces, and others. ???Don???t let anyone share household items with the sick person. This includes eating and drinkingtools, towels, sheets, or blankets. ???Clean fabrics and laundry thoroughly. ???Keep other people and pets away from the sick person. When you can stop self-isolation When you are sick with COVID-19, you should stay away from other people. This is called self-isolation. For normally healthy children or adults with COVID-19 symptoms, CDC advises stopping self-isolationwhen all 3 of these are true: 1. You have had no fever for at least 24 hours. This means no fever without medicine that reduces fever, such as acetaminophen, for at least 24 hours. 2. Your symptoms such as cough or trouble breathing have improved. 3. It has been at least 10 days since your first symptoms started. For people who have COVID-19 but no symptoms , isolation can stop 10 days after the first positive test. If you have a weak immune system and COVID-19, or if you've had severe COVID-19, your instructions on when to stop isolation will be somewhat different. Some conditions and treatments can cause a weak immune system. These include cancer treatment, bone marrow or organ transplants, and conditions such as HIV or other immune system disorders. You may be advised to self-isolate up to 20 days after your symptoms first started. Your healthcare provider may want to retest you for COVID-19. Follow your provider's instructions. CDC mask guidance Consider the CDC's guidance and your local community's instructions on face masks. ???Cloth masks may help prevent people who have COVID-19 from spreading the virus to others. ???Cloth masks are most likely to reduce COVID-19 spread when masks are widely used by people who are out in the public. ???Wear a mask inside your house if you live with someone who has symptoms of COVID-19 or has tested positive for COVID-19. ???CDC advises all people older than 2 who are not fully vaccinated to wear a mask and stay 6 feet away from others while in public. ???CDC advises people with a weak immune system, even if fully vaccinated, to continue wearing masks and to stay 6 feet away from others while in public. ???In kindergarten through grade 12 classes, CDC advises indoor masking for all teachers, staff, students ages 2 and older, and visitors to schools, regardless of vaccination status. ???Like other viruses, the virus that causes COVID-19 changes (mutates) all the time. This leads tovariants that are easily spread, including the delta variant. To protect against variants, CDC advises all people over age 2, including those who are fully vaccinated, to wear a mask indoors in public settings if you are in an area of high numbers of COVID-19 cases. See the [facility]'s county data website for current transmission information in your area. Certain people should not wear a face mask. This includes: ???Children younger than 2 years old ???Anyone with a health, developmental, or mental health condition that can be made worse by wearing a mask ???Anyone who is unconscious or unable to remove the face covering without help See the CDC's mask guidance. When to call your healthcare provider Call your healthcare provider right away if a sick person has any of these: ???Trouble breathing ???Pain or pressure in chest If a sick person has any of these, call 911: ???Trouble breathing that gets worse ???Pain or pressure in chest that gets worse ???Blue tint to lips or face ???Fast or irregular heartbeat ???Confusion or trouble waking ???Fainting or loss of consciousness ???Coughing up blood Going home from the hospital If you were diagnosed with COVID-19 and were recently discharged from the hospital: ???Follow the instructions above for self-care and isolation. ???Follow the hospital healthcare team???s specific instructions. ???Ask questions if anything is unclear to you. Write down answers so you remember them. Date last modified: 12/29/2020 ?? [id number] [employer]. All rights reserved. This information is not intended as a substitute for professional medical care. Always follow your healthcare professional's instructions. * Kristie Hatch MD: PERFORM, SIGN, VERIFY Event Display: [facility] Patient Education Authored Date: [id number] Infec Dz Coronavirus Disease 2019 (COVID-19): Caring for Yourself or Others If you or a household member have symptoms of COVID-19, follow these guidelines for preventing spread of the virus and managing symptoms. This is regardless of your vaccination status. If you have COVID-19 symptoms ???Stay home. Call your healthcare provider and tell them you have symptoms.. Do this before going to any hospital or clinic. Follow your provider's instructions. You may be advised to isolate yourself at home. This is called self-isolation. You may also be told to stay at least 6 feet from others to prevent the spread of COVID-19. This is called social distancing. ???Stay away from work, school, and public places. Limit physical contact with family members. Limit visitors. Don't kiss anyone or share eating or drinking utensils. Clean surfaces you touch with disinfectant. This is to help prevent the virus from spreading. ???If you need to cough or sneeze, do it into a tissue. Then throw the tissue into the trash. If you don't have tissues, cough or sneeze into the bend of your elbow. ???Wear a cloth face mask with 2 or more layers of washable, breathable fabric and a nose wire while in public or when indoors with people who don't live with you. Or you can wear a disposable paper mask with a cloth mask on top. Wear the mask so that it covers both your nose and mouth. ???Don???t share food or personal items with people in your household. This includes items like eating and drinking utensils, towels, and bedding. ???If you need to go to a hospital or clinic, expect that the healthcare staff will wear protectiveequipment such as masks, gowns, gloves, and eye protection. You may be advised to wait in or enter through a separate area. This is to prevent the possible virus from spreading. ???Tell the healthcare staff about recent travel. This includes local travel on public transport. Staff may need to find other people you have been in contact with. ???Follow all instructions the healthcare staff give you. If you have been diagnosed with COVID-19 ???Stay home and start self-isolation. Don???t leave your home unless you need to get medical care.Don't go to work, school, or public areas. Don't use public transportation or taxis. ???Follow all instructions from your healthcare provider. Call your healthcare provider???s office before going. They can prepare and give you instructions. This will help prevent the virus from spreading. ???If you need to go to a hospital or clinic, expect that the healthcare staff will wear protectiveequipment such as masks, gowns, gloves, and eye protection. You may be advised to wait in or enter through a separate area. This is to prevent the possible virus from spreading. ???Wear a face mask with 2 or more layers and a nose wire. Use either a cloth mask with layers of tightly woven, breathable fabric or a disposable paper mask with a cloth mask on top. This is to protect other people from your germs. If you are not able to wear a mask, your caregivers should. Wear the mask so that it covers both your nose and mouth. ???Stay away from other people in your home. ???Stay away from pets and other animals. ???Don???t share food or personal items with people in your household. This includes items like eating and drinking utensils, towels, and bedding. ???If you need to cough or sneeze, do it into a tissue. Then throw the tissue into the trash. If you don't have tissues, cough or sneeze into the bend of your elbow. ???Wash your hands often. Self-care at home?? Prevention Several vaccines are available to prevent COVID-19 or reduce its severity. These vaccine reduce howsevere the illness will be if you get the virus. No vaccine is ever 100% effective in preventing any illness, but the COVID-19 vaccines work well and are safe. One vaccine is available for people as young as 5. Expert groups, including ACOG and CDC, advise or people to be vaccinated. Talk with your healthcare provider about which vaccine is best for you and your family. Treatment Current treatment is mainly aimed at helping your body while it fights the virus. This is known as supportive care. For serious COVID-19, you may need to stay in the hospital. Supportive care includes: ???Getting rest. This helps your body fight the illness. ???Staying hydrated. Drinking liquids is the best way to prevent dehydration. Try to drink 6 to 8 glasses of liquids every day, or as advised by your provider. Also check with your provider about which fluids are best for you. Don't drink fluids that contain caffeine or alcohol. ???Taking qgma-pjj-uvjwpji (OTC) pain medicine. These are used to help ease pain and reduce fever. Follow your healthcare provider's instructions for which OTC medicine to use. If you've been treated for suspected or confirmed COVID-19 , follow all of your healthcare team's instructions. This will include when it's OK to stop self- isolation. You may also get instructions onposition changes to help your breathing, such as lying on your belly (prone positioning). If you were treated at a hospital and discharged, you may be sent home with a pulse oximeter. This is a smallelectronic device that you clip on your fingertip. It measures the amount of oxygen in your body. Follow your healthcare team's instructions on its use, how they will be in touch with you, and let you know when to call them. The FDA approved monoclonal antibody therapy for emergency investigational use in certain people who have a positive COVID-19 viral test and have mild to moderate symptoms but are not in the hospital. Your healthcare provider will advise you on whether monoclonal antibody therapy is appropriate foryou. It's not approved to prevent COVID-19. It's approved for people 12 years and older who weigh at least 88 pounds (about 40 kgs) and are at high risk for severe COVID-19 and a hospital stay. This includes people who are 65 years and older and people with certain chronic conditions. Monoclonal antibody therapy is not approved for people who: ???Are in the hospital with COVID-19, or ???Need oxygen therapy for COVID-19, or ???Need oxygen therapy for a chronic condition and need to have oxygen flow increased because of COVID-19 If you've had confirmed COVID-19, your healthcare team may ask you to consider donating your plasma. This is called COVID-19 convalescent plasma donation. Plasma from people fully recovered from COVID-19 may contain antibodies to help fight COVID-19 in people who are currently seriously ill with the disease. Experts don't know the safety of COVID-19 convalescent plasma or how well it works. Research continues. The FDA has approved it for emergency use in certain people with serious or life-threatening COVID-19. Home care for a sick person?Follow all instructions from healthcare staff. ???Wash your hands often. ???Wear protective clothing as advised. ???Make sure the sick person wears a mask. If they can't wear a mask, don't stay in the same room with the person. If you must be in the same room, wear a face mask. When wearing a mask, make sure that it covers both the nose and mouth. ???Keep track of the sick person???s symptoms. ???Clean home surfaces often with disinfectant. This includes phones, kitchen counters, fridge doorhandle, bathroom surfaces, and others. ???Don???t let anyone share household items with the sick person. This includes eating and drinkingtools, towels, sheets, or blankets. ???Clean fabrics and laundry thoroughly. ???Keep other people and pets away from the sick person. When you can stop self-isolation When you are sick with COVID-19, you should stay away from other people. This is called self-isolation. For normally healthy children or adults with COVID-19 symptoms, CDC advises stopping self-isolationwhen all 3 of these are true: 1. You have had no fever for at least 24 hours. This means no fever without medicine that reduces fever, such as acetaminophen, for at least 24 hours. 2. Your symptoms such as cough or trouble breathing have improved. 3. It has been at least 10 days since your first symptoms started. For people who have COVID-19 but no symptoms , isolation can stop 10 days after the first positive test. If you have a weak immune system and COVID-19, or if you've had severe COVID-19, your instructions on when to stop isolation will be somewhat different. Some conditions and treatments can cause a weak immune system. These include cancer treatment, bone marrow or organ transplants, and conditions such as HIV or other immune system disorders. You may be advised to self-isolate up to 20 days after your symptoms first started. Your healthcare provider may want to retest you for COVID-19. Follow your provider's instructions. CDC mask guidance Consider the CDC's guidance and your local community's instructions on face masks. ???Cloth masks may help prevent people who have COVID-19 from spreading the virus to others. ???Cloth masks are most likely to reduce COVID-19 spread when masks are widely used by people who are out in the public. ???Wear a mask inside your house if you live with someone who has symptoms of COVID-19 or has tested positive for COVID-19. ???CDC advises all people older than 2 who are not fully vaccinated to wear a mask and stay 6 feet away from others while in public. ???CDC advises people with a weak immune system, even if fully vaccinated, to continue wearing masks and to stay 6 feet away from others while in public. ???In kindergarten through grade 12 classes, CDC advises indoor masking for all teachers, staff, students ages 2 and older, and visitors to schools, regardless of vaccination status. ???Like other viruses, the virus that causes COVID-19 changes (mutates) all the time. This leads tovariants that are easily spread, including the delta variant. To protect against variants, CDC advises all people over age 2, including those who are fully vaccinated, to wear a mask indoors in public settings if you are in an area of high numbers of COVID-19 cases. See the [facility]'s county data website for current transmission information in your area. Certain people should not wear a face mask. This includes: ???Children younger than 2 years old ???Anyone with a health, developmental, or mental health condition that can be made worse by wearing a mask ???Anyone who is unconscious or unable to remove the face covering without help See the CDC's mask guidance. When to call your healthcare provider Call your healthcare provider right away if a sick person has any of these: ???Trouble breathing ???Pain or pressure in chest If a sick person has any of these, call 911: ???Trouble breathing that gets worse ???Pain or pressure in chest that gets worse ???Blue tint to lips or face ???Fast or irregular heartbeat ???Confusion or trouble waking ???Fainting or loss of consciousness ???Coughing up blood Going home from the hospital If you were diagnosed with COVID-19 and were recently discharged from the hospital: ???Follow the instructions above for self-care and isolation. ???Follow the hospital healthcare team???s specific instructions. ???Ask questions if anything is unclear to you. Write down answers so you remember them. Date last modified: 12/29/2020 ?? The [employer]. All rights reserved. This information is not intended as a substitute for professional medical care. Always follow your healthcare professional's instructions. * Kristie Hatch MD: PERFORM Event Display: [facility] Note-Physician Authored Date: [id number] [facility] Pain Reassessment Entered On: 04/03/2023 15:45 [employer]KER/DESIGNER Performed On: 04/03/2023 15:45 [employer]IE [employer]KER/DESIGNER by Kristie Hatch MD Pain Reassessment Pain Reassessment : N/A Kristie Hatch MD - 04/03/2023 15:45 [employer]KER/DESIGNER [Electronically Signed on 04/03/2023 03:45 PM TOOL [employer] DIE MAKER/DESIGNER] Kristie Hatch MD * Kristie Hatch MD: PERFORM, MODIFY, SIGN, VERIFY Event Display: [facility] Note-Physician Authored Date: [id number] Patient: UMER BOWEN Age: 32 years Sex: Female : 1990 Associated Diagnoses: None Author: Kristie Hatch MD Basic Information Vital signs: Vital Signs 04/03/2023 14:57 [employer]KER/DESIGNER Temperature Temporal Artery 36.7 DegC Peripheral Pulse Rate 70 bpm Respiratory Rate 20 br/min , Oxygen saturation: Basic Oxygen Information 04/03/2023 14:57 [employer] D[employer]KER/DESIGNER Oxygen Saturation 98 % . Time seen: Date & time 04/03/2023 15:28:00. History source: Patient. Arrival mode: Private vehicle. History limitation: None. Additional information:: Chief Complaint from Nursing Triage Note : Chief Complaint Description 04/03/2023 14:57 [employer] DIE [employer]KER/DESIGNER Chief Complaint Description c/o cough with bilateral ear pain and sore throat. +congestion, nasal drainage.+SHELTON. OTC medication does not help symptoms. Difficulty sleeping at night.Started on Sunday. +sick contacts. (Modified) . History of Present Illness The patient presents with Patient presents with 4 days of symptoms, earache, sore throat, nasal congestion, drainage, chest congestion, headache. Has had chills and bodyaches. No fever. No nausea, vomiting, abdominal pain, diarrhea. No known sick contacts. No shortness of breath.. Review of Systems Constitutional symptoms: Chills, fatigue, no fever. ENMT symptoms: Sore throat, nasal congestion. Respiratory symptoms: Cough, no shortness of breath. Gastrointestinal symptoms: no abdominal pain no nausea, no vomiting, no diarrhea. Musculoskeletal symptoms: Muscle pain. Health Status Allergies: Allergic Reactions (Selected) Severity Not Documented Methylprednisolone-neomycin topical- No reactions were documented. Penicillin- Hives. Sulfa drugs- No reactions were documented.. Past Medical/ Family/ Social History Medical history Problem List from Nurse's Notes All Problems Addisons disease / SNOMED CT 266133131 / Confirmed Depression / SNOMED CT 24807757 / Confirmed Former smoker / SNOMED CT 39381581 / Confirmed Genital herpes / SNOMED CT 69834445 / Confirmed Lupus / SNOMED CT 588620913 / Confirmed. Surgical history: Procedure History from Nurses Notes Appendectomy ([id number]).. Family history: Family History from Nurse's Notes No family history items have been selected or recorded.. Social history: Social History from Nurses Notes Alcohol Details: Former alcohol user Substance Abuse Details: Never drug user Tobacco Details: Former smoker, Smokeless Tobacco use: Never. N/A Cessation Counseling. Cigarettes . Physical Examination General: Alert. no acute distress. Skin: Warm. dry. Head: Normocephalic. atraumatic. Neck: Supple Eye: Normal conjunctiva Ears, nose, mouth and throat: Tympanic membranes clear. Oral mucosa moist. No pharyngeal erythema or exudate. Cardiovascular: Regular rate and rhythm Respiratory: Lungs are clear to auscultation. respirations are non-labored. Gastrointestinal: Soft. Nontender. Non distended. Lymphatics: No tender cervical lymph nodes Psychiatric: Cooperative. appropriate mood & affect. Medical Decision Making Differential Diagnosis:: Bronchitis, upper respiratory infection, sinusitis. Rationale Patient presents with symptoms consistent with viral illness. She is overall well-appearing appears well-hydrated. COVID-positive, flu negative. We discussed isolation for 5 days from the onset of symptoms, until afebrile, and until improvement overall follow-up 5 days masking. Discussed risk and benefits of Paxlovid therapy, patient does meet criteria for treatment, she declines at this time. Continue to monitor symptoms closely. Return precautions and ER precaution given. Refill albuterol inhaler per request. She voiced understanding and agreement with plan. . Results review: Lab results : [facility] 04/03/2023 15:03 [employer] D[employer]KER/DESIGNER Influenza A RNA Negative Influenza B RNA Negative Performed at. [facility] 04/03/2023 15:01 [employer] DIE [employer]KER/DESIGNER SARS-CoV-2 (COVID-19) [facility] Critical [facility] services delivered? No Impression and Plan Diagnosis Acute COVID-19 : [id number] U07.1, Discharge, Emergency medicine, Medical Discharge plan Dispositioned: Time 04/03/2023 15:44:00, To home. Patient was given the following educational materials: Coronavirus Disease 2019: Caring for Yourself and Others, Coronavirus Disease 2019: Caring for Yourself and Others. Follow up with: Gayla Barker; if symptoms worsen or fail to improve. Counseled: Patient. [Electronically Signed on 04/03/2023 03:44 PM TOOL AND DIE MAKER/DESIGNER] Kristie Hatch MD Patient Care team information Care Team Personnel Name: Gayla Barker REFRIGERATION INSTALLER Member Role: Primary Care Physician Address: Address: [facility] [address], [place] [address]
--- OUTSIDE RECORDS SUMMARY | 2024-02-24 19:38 | XMS_ITS | Continuity of Care Document ---
Author Organization [facility] Address [address] [place] [id number] Care Team Providers Care Colorist Name Role Phone Mj Gayla Ivory Primary Care Physician [phone] [facility] Financial Number [id number] Date(s): 11/16/21 - 11/16/[address] [phone] Discharge Disposition: Home or Self Care Attending Physician: Caitlin Qiu M.D. Allergies, Adverse Reactions, Alerts Substance Reaction Severity Status penicillin hives Active Medications hydroxychloroquine 0 Start Date: 11/16/21 Status: Ordered predniSONE 0 Start Date: 11/16/21 Status: Ordered sertraline 25 mg oral tablet 0 Start Date: 11/16/21 Status: Ordered Problem List Condition Confirmation Course Effective Dates Status Health St [facility] Informant Genital herpes Confirmed Active Procedures Procedure Date Related Diagnosis Body Site Status Appendectomy Completed Vital Signs Most recent to oldest [Reference Range]: 1 Temperature Temporal Artery [35.8-38 Deg C] 36.3 DegC (11/16/21 10:22 AM) Peripheral Pulse Rate [60-100 bpm] 81 bp m (11/16/21 10:22 AM) Respiratory Rate [14-22 br/min] 16 br/mi n (11/16/21 10:22 AM) Blood Pressure [89-139/60-90 mm Hg] 121/ 68mm Hg (11/16/21 10:22 AM) Height 160 cm (11/16/21 10:22 AM) Weight 76 kg (11/16/21 10:22 AM) Social History Social History Type Response Alcohol Former alcohol user Substance Abuse Never drug user Smoking Status Former smoker;Never; Tobacco Cessation Counseling Requested N/A; Type: Cigarettes entered on: 11/16/21 Sex Nurse Urgent care center Note * Caitlin Qiu M.D.: PERFORM Event Display: [facility] Note-Nursing Authored Date: [facility] Pending Results Entered On: 11/16/2021 11:42 CDT Performed On: 11/16/2021 11:42 CDT by Caitlin Qiu M.D. [facility] Pending Results [facility] Pending Order Completion : Yes Caitlin Qiu M.D. - 11/16/2021 11:42 CDT * Nishant Arguello RN: PERFORM Event Display: [facility] Note-Nursing Authored Date: [id number] Urgent Care Triage Entered On: 11/16/2021 10:29 CDT Performed On: 11/16/2021 10:22 CDT by Nishant Arguello RN [facility] Triage Chief Complaint Description : for 3 days sore throat, right ear pain, dry cough at night, fatigue, chills. wants covid test Nishant Arguello RN - 11/16/2021 10:22 CDT DCP GENERIC CODE Tracking Acuity : 3 - Nonurgent Tracking Group : [facility] [employer] Nishant Arguello RN - 11/16/2021 10:22 CDT Temperature Temporal Artery : 36.3 DegC(Converted to: 97.3 DegF) Peripheral Pulse Rate : 81 bpm Respiratory Rate : 16 br/min Weight : 76 kg(Converted to: 167.551 pound(s)) Height : 160 cm(Converted to: 5 ft 3 inch(es)) Systolic/Diastolic BP : 121 mm Hg Systolic/Diastolic BP : 68 mm Hg Oxygen Saturation : 100 % Pain Symptoms : No Nishant Arguello RN - 11/16/2021 10:22 CDT (As Of: 11/16/2021 10:29 CDT) Problems(Active) Addisons disease (SNOMED CT :326049155 ) Name of Problem: Addisons disease ; Recorder: Nishant Arguello RN; Confirmation: Confirmed ; Classification: Patient Stated ; Code: [id number] ; Contributor System: Medocity ; Last Updated: 11/16/2021 10:27 CDT ; Life Cycle Date: 11/16/2021 ; Life Cycle Status: Active ; Vocabulary: SNOMED CT Depression (SNOMED CT :60848647 ) Name of Problem: Depression ; Recorder: Nishant Arguello RN; Confirmation: Confirmed ; Classification: Patient Stated ; Code: [id number] ; Contributor System: Medocity ; Last Updated: 11/16/2021 10:27 CDT ; Life Cycle Date: 11/16/2021 ; Life Cycle Status: Active ; Vocabulary: SNOMED CT Genital herpes (SNOMED CT :96171295 ) Name of Problem: Genital herpes ; Recorder: Minal Arreguin NP; Confirmation: Confirmed ; Classification: Medical ; Code: [id number] ; Contributor System: Medocity ; Last Updated: 08/08/2017 16:00CDT ; Life Cycle Date: 08/08/2017 ; Life Cycle Status: Active ; Vocabulary: SNOMED CT Lupus (SNOMED CT :834372459 ) Name of Problem: Lupus ; Recorder: Nishant Arguello RN; Confirmation: Confirmed ; Classification: Patient Stated ; Code: [id number] ; Contributor System: FanXTChart ; Last Updated: 11/16/2021 10:27 CDT ; Life Cycle Date: 11/16/2021 ; Life Cycle Status: Active ; Vocabulary: SNOMED CT Diagnoses(Active) Throat pain - Adult Date: 11/16/2021 ; Diagnosis Type: Reason For Visit ; Confirmation: Complaint of ; Clinical Dx: Throat pain - Adult ; Classification: Medical ; Clinical Service: Emergency medicine ; Code: PNED ; Probability: 0 ; Diagnosis Code: [id number] - Procedure History (As Of: 11/16/2021 10:29 CDT) Anesthesia Minutes: 0 ; Procedure Name: Appendectomy ; Procedure Minutes: 0 Document Allergies/Home Meds Anticoagulant Therapy in Last 7 Days : No Nishant Arguello RN - 11/16/2021 10:22 CDT (As Of: 11/16/2021 10:29 CDT) Allergies (Active) penicillin Estimated Onset Date: Unspecified ; Reactions: hives ; Created By: Nishant Arguello RN; Reaction Status: Active ; Category: Drug ; Substance: penicillin ; Type: Allergy ; Updated By: Keagan Arguello RN; Reviewed Date: 11/16/2021 10:26 CDT Medication List (As Of: 11/16/2021 10:29 CDT) Home Meds hydroxychloroquine : hydroxychloroquine ; Status: [...] sertraline ; Order Dt/Tm: 11/16/2021 10:26 CDT progesterone : progesterone ; Status: Completed ; Ordered As Mnemonic: progesterone 200 mg oral capsule ; SimpleDisplay Line: 200 mg, 1 capsule(s), Oral, daily, for 10 day(s), 10 capsule(s), 0 Refill(s) ; Catalog Code: progesterone ; Order Dt/Tm: 09/28/2017 10:16 CDT Screening Infectious Disease Travelled or Contact in last month? : No travel in last month Tuberculosis : No Last 3 Months, Exposed to resp. llness? : No Last 3 Months, Had a resp. illness? : Yes Nishant Arguello RN - 11/16/2021 10:22 CDT [facility] General Assessment/Social Hx Child/Parent Domestic Concerns : None Special Practices to be Part of Care : No Little interest/pleasure in doing things? : No Feeling down, depressed, or hopeless? : No Barriers to Learning : None evident Preferred Mode of Communication : Verbal Preferred Language of Patient/Caregiver ED : Peruvian [facility] Call Patient Back : No [facility] Plan of Care Discussed : Yes Nishant Arguello RN - 11/16/2021 10:22 CDT Social History (As Of: 11/16/2021 10:29 CDT) Tobacco: Former smoker, Smokeless Tobacco use: [...] ability Montano Fall Risk Score : 0 Nishant Arguello RN - 11/16/2021 10:22 CDT Novel Coronavirus Assessment Novel Coronavirus Current Fever : No Novel Coronavirus Fever 14 days : No Novel Coronavirus Exposed COVID 14 days : No Novel Coronavirus Previous Outside Labs : Yes Novel Coronavirus Positive or Pending : Negative Novel Coronavirus Lab Result Comments : at home test sunday Novel Coronavirus Received Vaccine : Yes Novel Coronavirus Vaccine Type : Pfizer Novel Coronavirus Completed Vac Series : Yes Novel Coronavirus Booster Vaccine Received : No Nishant Arguello RN - 11/16/2021 10:22 CDT Note * Caitlin Qiu M.D.: PERFORM Event Display: [facility] Patient Summary Authored Date: [id number] UMER BOWEN :1990 Visit Date:11/16/2021 [facility] Discharge Instructions Patient Information Name:UMER BOWEN Address: [address] [place] [id number] Sex:Female Date of :1990 Location:[facility] Registration Date and Time:11/16/2021 10:14 CDT Primary Care Physician: Gayla Barker RESPIRATORY TECHNICIAN, Attending Physician: Caitlin Qiu M.D., Location Information ?[facility] [place]?[address]? Your Diagnosis Diagnosis ?Throat pain - Adult?Reason For Visit ?? Your Care Team Attending Physician - Caitlin Qiu M.D. Primary Care Physician - Gayla Barker RESPIRATORY TECHNICIAN Discharge Vitals Vital Signs Height: 160 cm Weight: 76 kg Temperature Temporal Artery: 36.3 DegC Systolic Blood Pressure: 121 mm Hg Diastolic Blood Pressure: 68 mm Hg Peripheral Pulse Rate: 81 bpm Respiratory Rate: 16 br/min Oxygen Saturation: 100 % Medications [facility] has provided [...] discussed with your physician(s) and pharmacist. What When Instructions Unchanged hydroxychloroquine Unchanged predniSONE Unchanged sertraline (sertraline 25 mg oral tablet) Medications and Immunizations Administered Medication Administrations ? No Results Found ? Allergies penicillin??(hives) Labs Test Name Test Result Date/[id number]-TxZ-4 (COVID-19) RNA Negative 11/16/2021 10:50 CDT SARS-CoV-2 First Test No 11/16/2021 10:50 CDT SARS-CoV-2 Healthcare Employee Yes 11/16/2021 10:50 CDT SARS-CoV-2 CDC Symptomatic Yes 11/16/2021 10:50 CDT SARS-CoV-2 Symptom Onset 11/13/2021 11/16/2021 10:50 CDT SARS-CoV-2 Hospitalized No 11/16/2021 10:50 CDT SARS-CoV-2 ICU No 11/16/2021 10:50 CDT SARS-CoV-2 Congregate Care No 11/16/2021 10:50 CDT SARS-CoV-2 Not 11/16/2021 10:50 CDT Strep A DNA Negative 11/16/2021 10:50 CDT Performed at. Lisa Bashir [facility] 11/16/2021 10:50 CDT Radiology ? COMPLETED RADIOLOGY IMAGING STUDIES: ? No Imaging Results in the last 36 hours In need of a Physician? Call [facility] Physician Referral Service [phone]. Thank you for choosing [facility] for your [...] follow up instructions and have verbalized understanding. Patient/Lead Business Analyst Signature: Provider Signature: Date/Time:11/16/2021 11:22:27 * Caitlin Qiu M.D.: MODIFY, SIGN, VERIFY, PERFORM Event Display: [facility] Note-Physician Authored Date: Patient: UMER BOWEN Age: 31 years Sex: Female : 1990 Associated Diagnoses: None Author: Caitlin Qiu M.D. Basic Information Vital signs: Vital Signs 11/16/2021 10:22 CDT Temperature Temporal Artery 36.3 DegC Peripheral Pulse Rate 81 bpm Respiratory Rate 16 br/min Systolic Blood Pressure 121 mm Hg Diastolic Blood Pressure 68 mm Hg , Measurements 11/16/2021 10:22 CDT Height 160 cm Weight 76 kg , Oxygen saturation: Basic Oxygen Information 11/16/2021 10:22 CDT Oxygen Saturation 100 % . Time seen: Date & time 11/16/2021 10:33:00. Additional information:: Chief Complaint from Nursing Triage Note : Chief Complaint Description 11/16/2021 10:22 CDT Chief Complaint Description for 3 days sore throat, right ear pain, dry cough at night, fatigue, chills. wants covid test . 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 Review of Systems Constitutional symptoms: Chills, fatigue. ENMT symptoms: Ear pain, sore throat, nasal congestion. Respiratory symptoms: Negative except as documented in HPI no shortness of breath, no sputum production. Health Status Allergies: Allergic Reactions (Selected) Severity Not Documented Penicillin- Hives.. Medications: (Selected) Documented Medications Documented hydroxychloroquine: 0 Refill(s) predniSONE: 0 Refill(s) sertraline 25 mg oral tablet: 0 Refill(s). Past Medical/ Family/ Social History Medical history Problem List from Nurse's Notes All Problems Addisons disease / SNOMED CT 987288100 / Confirmed Depression / SNOMED CT 57796743 / Confirmed Genital herpes / SNOMED CT 59185729 / Confirmed Lupus / SNOMED CT 429690519 / Confirmed. Surgical history: Procedure History from Nurses Notes Appendectomy ([id number]).. Family history: Family History from Nurse's Notes No family history items have been selected or recorded.. Social history: Social History from Nurses Notes Alcohol Details: Former alcohol user Substance Abuse Details: Never drug user Tobacco Details: Former smoker, Smokeless Tobacco use: Never. N/A Cessation Counseling. Cigarettes . Physical Examination General: Alert. anxious. Skin: Normal for ethnicity Eye: Pupils are equal, round and reactive to light Ears, nose, mouth and throat: Tympanic membranes clear. Oral mucosa moist. No pharyngeal erythema or exudate. Neck: No tenderness Cardiovascular: Regular rate and rhythm. No murmur. Respiratory: Lungs are clear to auscultation. respirations are non-labored. Neurological: Alert and oriented to person, place, time, and situation Lymphatics: No lymphadenopathy Medical Decision Making Orders Launch Orders Laboratory: COVID-19 ([facility]) (Order): 11/16/2021 11:18 CDT, Nasopharyngeal, ROUTINE, Routine, First Test No, Healthcare Employee No, CDC Symptomatic Yes, Symptom Onset 11/13/2021, Hospitalized No, ICU No, Congregate Care No, Not , Nurse Collect, Print Label, Hold Until Collected. Rationale COVID SX . Results review: Lab results : Lab [facility] 11/16/2021 10:50 CDT SARS-CoV-2 (COVID-19) RNA Negative SARS-CoV-2 First Test No SARS-CoV-2 Healthcare Employee Yes SARS-CoV-2 CDC Symptomatic Yes SARS-CoV-2 Symptom Onset 11/13/2021 SARS-CoV-2 Hospitalized No SARS-CoV-2 ICU No SARS-CoV-2 Congregate Care No SARS-CoV-2 Not Strep A DNA Negative [facility] PEND[facility]. Procedure Critical care services delivered? No Impression and Plan Diagnosis VIRAL SYNDROME Discharge plan Condition: Stable. Dispositioned: Time 11/16/2021 11:40:00, To home. [Electronically Signed on 11/16/2021 12:15 PM CDT] Caitlin Qiu M.D. * Paulina Candelaria Strong: PERFORM Event Display: [employer] consent - Text Authored Date: [id number] [employer] Consent Entered On: 11/16/2021 10:18 CDT Performed On: 11/16/2021 10:18 CDT by Paulina Candelaria Strong [employer] Consent Consent for Surescripts Granted : Yes Paulina Candelaria Senior Quality Control Inspector - 11/16/2021 10:18 CDT Patient Care team information Care Team Personnel Name: Gayla Barker NP Position: [facility] FAX ONLY - MD NOT ON STAFF Med Service: Family Medicine Member Role: Primary Care Physician Address: Address: [address], [place] [address]
--- OUTSIDE RECORDS SUMMARY | 2024-02-24 19:38 | XMS_ITS | Encounter Summary ---
Author Organization [facility] Address [address] [place] [address] Care Team Providers Care African History Professor Name Role Phone Sheldon Delgado MD Unavailable [phone] Huseyin Dangelo MD Primary Care Provider [phone] Reason for Visit * Reason Comments Pain Abdominal Abdominal pain for 2 weeks, pt states that she feels like she cannot empty her bladder, states that it is uncomfortable, no nausea/vomiting. Encounter Details Date Type Department Care Team (Late st Contact Info) Description 12/06/2022 11:34 AM CDT - 12/06/2022 4:36 PM CDT Emergency ER at [address] [address] Discharge Disposition: Left Against Medical Advice/Discontinued Care Social History Tobacco Use Types Packs/Day [...] Sign Reading Time Taken Comments Blood Pressure 133/86 12/06/2022 11:42 AM CDT Pulse 79 12/06/2022 11:42 AM CDT Temperature 36.9 ??C (98.4 ??F) 12/06/2022 11:42 AM C DT Respiratory Rate 18 12/06/2022 11:42 AM CDT Oxygen Saturation 100% 12/06/2022 11:42 AM CDT Inhaled Oxygen Concentration - - Weight - - Height - - Body Mass Index - - documented in this encounter Medications at Time [...] (one) tablet by mouth every 12 hours documented as of this encounter ED Notes * Sherry Gatica RN - 12/06/2022 4:35 PM CDT NA x 3 for RME. Dismissing out of computer. Left before being evaluated. * Kilo Loera PA-C - 12/06/2022 12:02 PM CDT RME Note 12/06/2022 12:02 Patient presents with a chief complaint of abdominal pain, urinary symptoms. History of present illness: 32 year old female presents reporting lower abdominal discomfort and urinary frequency over last 2 weeks. Patient states having recent evaluation by her Ob including bloodwork, urine testing, and transvaginal ultrasound with initial unremarkable findings. Patient has a f ollow-up appointment with Urology next week, but is unable to tolerate her symptoms. Associated dyspareunia. Denies history of interstitial cystitis. Denies fever. Last menstrual cycle is unclear. Past Medical History: Diagnosis Date ??? Anemia [...] Type 2 Mother ??? None Known Father Social History Socioeconomic History ??? Marital status: Spouse name: Not on file ??? Number of children: 0 ??? Years of education: Not on file ??? Highest education level: Not on file Occupational History ??? Not on file Tobacco Use ??? Smoking status: Former Packs/day: 0 Types: Cigarettes ??? Smokeless tobacco: Never Vaping Use ??? Vaping Use: Never used Substance and Sexual Activity ??? Alcohol use: No ??? Drug use: Not Currently Types: Marijuana Comment: last use 09/22/2018 patient states not using at this time ??? Sexual activity: Yes Partners: Male Other Topics Concern ??? Not on file Social History Narrative ??? Not on file Social Determinants of Health Financial Resource Strain: Low Risk (01/29/2019) Overall Financial Resource Strain (CARDIA) ??? Difficulty of Paying Living Expenses: Not hard at all Food Insecurity: Unknown (01/29/2019) Hunger Vital Sign ??? Worried About Running Out of Food in the Last Year: Never true ??? Ran Out of Food in the Last Year: Not on file Transportation Needs: No Transportation Needs (01/29/2019) PRAPARE - Transportation ??? Lack of Transportation (Medical): No ??? Lack of Transportation (Non-Medical): No Stress: Not on file Housing Stability: Not on file Review of Systems Constitutional: Negative. HENT: Negative. Eyes: Negative. Respiratory: Negative. Cardiovascular: Negative. Gastrointestinal: Negative. Genitourinary: See HPI. Musculoskeletal: Negative. Skin: Negative. Neurological: Negative. Psychiatric/Behavioral: Negative. All other systems reviewed and are negative. Physical Exam: Constitutional: Well developed, well nourished. No acute distress. HENT: Normocephalic, atraumatic. Neck: ROM nl, supple. Heart: normal rate. Pulmonary/Chest: Effort normal, no respiratory distress. Abdomen: soft, non tender. Musculoskeletal: SILVESTRE, no edema or tenderness. Neurological: A&O x 3, no focal neuro deficits. Skin: warm, dry. Psych: mood and affect normal. Complete vital signs reviewed. BP 133/86 Pulse 79 Temp 98.4 ??F (36.9 ??C) (Oral) Resp 18 SpO2 100% Diagnostic tests ordered: Orders Placed This Encounter ??? BASIC METABOLIC PANEL (CALCIUM TOTAL) ??? CBC W AUTO DIFFERENTIAL ??? URINALYSIS REFLEX MICROSCOPIC REFLEX CULTURE Based on the Medical Screening Exam performed and diagnostic tests at this time: Further evaluation is indicated and will be performed. Care will be transferred to the main ED. documented in this encounter Plan of Treatment Not on file documented as of this encounter Procedures Procedure Name Priority Date/Time Associated Diagnosis Comments URINALYSIS REFLEX MICROSCOPIC REFLEX CULTURE STAT 12/06/2022 1:28 PM CDT documented in this encounter Results * (ABNORMAL) URINALYSIS REFLEX MICROSCOPIC REFLEX CULTURE (12/06/2022 1:28 PM CDT) Color UA Yellow Straw, Yellow 12/06/2022 1:38 PM CDT [facility] Clarity UA Slt Cloudy(A) Clear 12/06/2022 1:38 PM CDT [facility] Glucose UA Negative Negative 12/06/2022 1:38 PM CDT [facility] Bilirubin UA Negative Negative 12/06/2022 1:38 PM CDT [facility] Ketone UA Negative Negative 12/06/2022 1:38 PM CDT [facility] Specific [place] UA 1.010 1.005 - 1.030 12/06/2022 1:38 PM CDT [facility] Blood UA Negative Negative 12/06/2022 1:38 PM CDT [facility] pH UA 7.0 5.0 - 8.0 pH 12/06/2022 1:38 PM CDT [facility] Protein UA Negative Negative 12/06/2022 1:38 PM CDT [facility] Urobilinogen UA Negative Negative mg/dL 12/06/2022 1:38 PM CDT [facility] Nitrite UA Negative Negative 12/06/2022 1:38 PM CDT [facility] Leukocyte UA Negative Negative 12/06/2022 1:38 PM CDT [facility] Urine Microscopy Urine microscopy not indicated 12/06/2022 1:38 PM CDT [facility] Reflex Status Culture not indicated 12/06/2022 1:38 PM CDT [facility] Urine URINE SPECIMEN OBTAINED BY CLEAN CATCH PROCEDURE / Unknown Collection / Unknown 12/06/2022 1:28 PM CDT 12/06/2022 1:33 PM CDT Narrative [facility] - 12/06/2022 1:38 PM CDT Kilo Loera PA-C LAB - URINALYSIS OR DERABLES Performing Organization Address [facility]/State/[facility] Co de Phone Number [facility] [address] [place] [address] documented in this encounter Visit Diagnoses Not on filedocumented in this encounter Care Teams African History Professor Relationship Specialty Start [place] [address] [facility] [address], [place] [address] PCP - General 12/20/20 05/03/23 Sheldon Delgado MD Obstetrics and Gynecology 05/23/19 documented as of this encounter
--- OUTSIDE RECORDS SUMMARY | 2024-02-24 19:38 | XMS_ITS | Encounter Summary ---
Author Organization [facility] Address [address] [facility] [place] [address] Care Team Providers Care Instructional Technology Coach Name Role Phone Sheldon Delgado MD Unavailable [phone] Huseyin Dangelo MD Primary Care Provider [phone] Encounter Details Date Type Department Care Team (Late st Contact Info) Description 08/31/2022 Lab Requisition [facility] Derm[facility] [address] [facility] [place] [id number] Huseyin Edgar DO [address] [address] Social History Tobacco Use Types Packs/Day Years [...] Procedure Name Priority Date/Time Associated Diagnosis Comments DERMATOPATHOLOGY Routine 08/30/2022 12:0 0 AM CDT documented in this encounter Results * DERMATOPATHOLOGY (08/30/2022 12:00 AM CDT) Case Report Dermatopathology Report ? Case: [id number] ? Authorizing Provider: ??Huseyin Edgar DO ? Collected: ? 08/30/2022 12:00 AM ? Ordering Location: ? [facility] DermPath Lab ? Received: ?08/31/2022 09:38 AM ? Pathologist: ? Lisette Perez MD ? Specimens: ?? A) - Skin, back ? B) - Skin, nose ? 3 1:44 PM CDT DERMATOPATHOLOGY LABORATORY Addendum 1 Regarding specimen A, MART-1/MelanA immunostain highlights lesional cells. Regarding specimen B, Ki67 immunostain is positive in scattered lower-level intraepidermal keratinocytes. 3 1:44 PM [facility] DERMATOPATHOLOGY LABORATORY Addendum electronically signed by Lisette [...] microscopic description and comment) 3 1:44 PM [facility] DERMATOPATHOLOGY LABORATORY Clinical History A: Pigmented Lesion B: Poss BCC vs. Cyst 3 1:44 PM [facility] DERMATOPATHOLOGY LABORATORY Gross Description Specimen A: Received [...] 1x1x1 mm. Jar 0+. 3 1:44 PM [facility] DERMATOPATHOLOGY LABORATORY Microscopic Description Specimen A. SKIN, [...] larger lesion, these findings may not be healthcare representative of the entire lesion. Clinicopathologic correlation [...] characteristic determined by the Dermatopathology Laboratory at [facility], directed by Dr. Rc Berry. These tests need not be, and therefore are not, approved by the [place] Food and Drug Administration. The tests are used for clinical purposes. Billing Codes Specimen Charges Stain Charges 03716 87494 1 1 54275 [id number] 79129 1 1 1 3 1:44 PM CDT DERMATOPATHOLOGY LABORATORY Embedded Images 3 1:44 PM CDT DERMATOPATHOLOGY LABORATORY Pathology/Cytology TISSUE SPECIMEN FROM SKIN / Unknown 08/30/2022 08/31/2022 9:38 AM CDT Miscellaneous samples (specimen) TISSUE SPECIMEN FROM SKIN / Unknown 08/30/2022 08/31/2022 9:38 AM CDT Huseyin Edgar DO LAB - PATHOLOGY/CYTO LOGY ORDERABLES DERMATOPATHOLOGY LABORATORY [facility] - Department of Dermatology [facility] Specialized Medicine [address] [place] [address], [address] [phone] documented in this encounter Visit Diagnoses Not on filedocumented in this encounter Care Teams Instructional Technology Coach Relationship Specialty Start [place] [address] [facility] [address] [place] [address] PCP - General 12/20/20 05/03/23 Sheldon Delgado MD Obstetrics and Gynecology 05/23/19 documented as of this encounter
--- OUTSIDE RECORDS SUMMARY | 2024-02-24 19:38 | XMS_ITS | Continuity of Care Document ---
Author Organization [facility] Address [address] [place] [id number] Care Team Providers Care Duct Maker Name Role Phone Mj Gayla Ivory Primary Care Physician Encounter [facility] Financial Number [id number] Date(s): 02/04/24 - 02/04/[address] [id number] Discharge Disposition: Left Without Being Seen Attending Physician: Antonio Kate D.O. Allergies, Adverse Reactions, Alerts Substance Criticality Severity Reaction Reaction Severity Status doxycycline Active penicillin Hives Active methylprednisolone-neomycin topical Active sulfa drugs Active Medications hydroxychloroquine 0 Start Date: 11/16/21 Status: Ordered omeprazole 0 Start Date: 02/04/24 Status: Ordered predniSONE 5 mg oral tablet 0 Start Date: 02/04/24 Status: Ordered sertraline 25 mg oral tablet 0 Start Date: 11/16/21 Status: Ordered Mental Status 02/04/24 Orientation Oriented x 4 Problem List Condition Confirmation Course Effective Dates Status Health St atus Informant Genital herpes Confirmed Active Procedures Procedure Date Related Diagnosis Body Site Status Appendectomy Completed Results Laboratory List Name Date Waived [facility]-Urinalysis 02/04/24 Most recent to oldest [Reference Range]: 1 UA Blood [Negative] Negative 1 (02/04/24 4:33 PM) UA Bilirubin [Negative] Negative (02/04/24 4:33 PM) UA Glucose (Qual) [Negative] Negative (02/04/24 4:33 PM) UA Ketones [Negative] Negative (02/04/24 4:33 PM) UA Leukocyte Esterase [Negative] Negativ e 2 (02/04/24 4:33 PM) UA Nitrite [Negative] Negative 3 (02/04/24 4:33 PM) UA Specific [place] [1.005-1.030] 1.025 (02/04/24 4:33 PM) UA pH [5.0-8.0] 6.0 (02/04/24 4:33 PM) UA Protein (Qual) [Negative] Trace 4 (02/04/24 4:33 PM) UA Urobilinogen [Negative] Negative (02/04/24 4:33 PM) Performed at [facility] 5 (02/04/24 4:33 PM) 1Interpretive Data: False-negative results have been [...] report for manual/visual dipstick result. 5Result Comment: [facility], [address] [place] [address] Vital Signs Most recent to oldest [Reference Range]: 1 Temperature Temporal Artery [35.8-38 Deg C] 36.2 DegC (02/04/24 4:49 PM) Peripheral Pulse Rate [60-100 bpm] 85 bp m (02/04/24 4:49 PM) Respiratory Rate [14-22 br/min] 15 br/mi n (02/04/24 4:49 PM) Blood Pressure [89-139/60-90 mm Hg] 121/ 75mm Hg (02/04/24 4:49 PM) Social History Social History Type Response Alcohol Former alcohol user Substance Abuse Never drug user Smoking Status Former smoker;Never; Tobacco Cessation Counseling Requested N/A; Type: Cigarettes entered on: 04/03/23 Sex Sex Representation Female (finding) Nurse Urgent care center Note * Dayna Camacho RN: PERFORM Event Display: [facility] Note-Nursing Authored Date: [id number] Urgent Care Triage Entered On: 02/04/2024 16:53 [facility] Performed On: 02/04/2024 16:49 [facility] by Dayna Camacho RN [facility] Triage Chief Complaint Description : Pt c/o urinary frequency, urgency x5 days. denies pain Dayna Camacho RN - 02/04/2024 16:49 [facility] DCP GENERIC CODE Tracking Acuity : 4 - Less Urgent Tracking Group : [facility] Dayna Camacho RN - 02/04/2024 16:49 [facility] Temperature Temporal Artery : 36.2 DegC(Converted to: 97.2 DegF) Peripheral Pulse Rate : 85 bpm Respiratory Rate : 15 br/min Systolic/Diastolic BP : 121 mm Hg Systolic/Diastolic BP : 75 mm Hg Oxygen Saturation : 98 % [facility] Oxygen Therapy : Room air Pain Symptoms : No Dayna Camacho RN - 02/04/2024 16:49 [facility] (As Of: 02/04/2024 16:53 [facility]) Problems(Active) Addisons disease (SNOMED CT :954319603 ) Name of Problem: Addisons disease ; Recorder: Nishant Arguello RN; Confirmation: Confirmed ; Classification: Patient Stated ; Code: 089202081 ; Contributor System: Sagge ; Last Updated: 11/16/2021 10:27 CDT ; Life Cycle Date: 11/16/2021 ; Life Cycle Status: Active ; Vocabulary: SNOMED CT Depression (SNOMED CT :07316370 ) Name of Problem: Depression ; Recorder: Nishant Arguello RN; Confirmation: Confirmed ; Classification: Patient Stated ; Code: 34340801 ; Contributor System: [employer] Urban[employer] ; Last Updated: 11/16/2021 10:27 CDT ; Life Cycle Date: 11/16/2021 ; Life Cycle Status: Active ; Vocabulary: SNOMED CT Former smoker (SNOMED CT :32065339 ) Name of Problem: Former smoker ; Recorder: System, System; Confirmation: Confirmed ; Classification: Patient Stated ; Code: 44350928 ; Last Updated: 04/03/2023 14:57 [facility] ; Life Cycle Date: 04/03/2023 ; Life Cycle Status: Active ; Vocabulary: SNOMED CT Genital herpes (SNOMED CT :17542927 ) Name of Problem: Genital herpes ; Recorder: Minal Arreguin NP; Confirmation: Confirmed ; Classification: Medical ; Code: 63533125 ; Contributor System: Sagge ; Last Updated: 08/08/2017 16:00CDT ; Life Cycle Date: 08/08/2017 ; Life Cycle Status: Active ; Vocabulary: SNOMED CT Lupus (SNOMED CT :971203029 ) Name of Problem: Lupus ; Recorder: Nishant Arguello RN; Confirmation: Confirmed ; Classification: Patient Stated ; Code: 465750979 ; Contributor System: Sagge ; Last Updated: 11/16/2021 10:27 CDT ; Life Cycle Date: 11/16/2021 ; Life Cycle Status: Active ; Vocabulary: SNOMED CT Diagnoses(Active) Urinary frequency Date: 02/04/2024 ; Diagnosis Type: Reason For Visit ; Confirmation: Complaint of ; Clinical Dx: Urinary frequency ; Classification: Medical ; Clinical Service: Emergency medicine ; Code: PNED ; Probability: 0 ; Diagnosis Code: [id number] - Procedure History (As Of: 02/04/2024 16:53 [facility]) Anesthesia Minutes: 0 ; Procedure Name: Appendectomy ; Procedure Minutes: 0 Document Allergies/Home Meds Anticoagulant Therapy in Last 7 Days : No Dayna Camacho RN - 02/04/2024 16:49 [facility] (As Of: 02/04/2024 16:53 [facility]) Allergies (Active) doxycycline Estimated Onset Date: Unspecified ; Created By: Dayna Camacho RN; Reaction Status: Active ; Category: Drug ; Substance: doxycycline ; Type: Allergy ; Updated By: Dayna Camacho RN; Reviewed Date: 02/04/2024 16:53 [facility] methylprednisolone-neomycin topical Estimated Onset Date: Unspecified ; Created By: Sherry Moraes RN; Reaction Status: Active ; Category: Drug ; Substance: methylprednisolone-neomycin topical ; Type: Allergy ; Updated By: Tori Moraes RN; Reviewed Date: 02/04/2024 16:53 [facility] penicillin Estimated Onset Date: Unspecified ; Reactions: Hives ; Created By: Marlene Cardoza Agendize Clinical Reviewer; Reaction Status: Active ; Category: Drug ; Substance: penicillin ; Type: Allergy ; Updated By: Marlene Cardoza Agendize Clinical Reviewer; Reviewed Date: 02/04/2024 16:53 [facility] sulfa drugs Estimated Onset Date: Unspecified ; Created By: Pako Rodriguez RN; Reaction Status: Active ; Category: Drug ; Substance: sulfa drugs ; Type: Allergy ; Updated By: Pako Rodriguez RN; Reviewed Date: 02/04/2024 16:53 [facility] Medication List (As Of: 02/04/2024 16:53 [facility]) Prescription/Discharge Order albuterol : albuterol ; Status: Completed ; Ordered As Mnemonic: Albuterol (Eqv-ProAir HFA) 90 mcg/inh inhalation aerosol ; Simple Display Line: 2 puff(s), Inhalation, qid, Slow Breath inhale slowly and deeply, 1 each, 0 Refill(s) ; Ordering Provider: Kristie Hatch MD; Catalog Code: albuterol ; Order Dt/Tm: 04/03/2023 15:50 [facility] predniSONE : predniSONE ; Status: Completed ; Ordered As Mnemonic: predniSONE 10 mg oral tablet ; Simple Display Line: 10 mg, 1 tablet(s), Oral, daily, for 10 day(s), 10 tablet(s), 0 Refill(s) ; Ordering Provider: Cirilo Mckeon D.O.; Catalog Code: predniSONE ; Order Dt/Tm: 04/18/2022 14:28 [facility] Home Meds omeprazole : omeprazole ; Status: Documented ; Ordered As Mnemonic: omeprazole ; Simple Display Line: 0 Refill(s) ; Catalog Code: omeprazole ; Order Dt/Tm: 02/04/2024 16:52 [facility] predniSONE : predniSONE ; Status: Documented ; Ordered As Mnemonic: predniSONE 5 mg oral tablet ; Simple Display Line: 0 Refill(s) ; Catalog Code: predniSONE ; Order Dt/Tm: 02/04/2024 16:52 [facility] hydroxychloroquine : hydroxychloroquine ; Status: Documented ; Ordered As Mnemonic: hydroxychloroquine ; Simple Display Line: 0 Refill(s) ; Catalog Code: hydroxychloroquine ; Order Dt/Tm: 11/16/2021 10:26 CDT predniSONE : predniSONE ; Status: Completed ; Ordered As Mnemonic: predniSONE ; Simple Display Line: 0 Refill(s) ; Catalog Code: predniSONE ; Order Dt/Tm: 11/16/2021 10:26 CDT sertraline : sertraline ; Status: Documented ; Ordered As Mnemonic: sertraline 25 mg oral tablet ; Simple Display Line: 0 Refill(s) ; Catalog Code: sertraline ; Order Dt/Tm: 11/16/2021 10:26 CDT [facility] General Assessment/Social Hx Child/Parent Domestic Concerns : None Little interest/pleasure in doing things? : No Feeling down, depressed, or hopeless? : No [facility] Plan of Care Discussed : Yes Dayna Camacho RN - 02/04/2024 16:49 [facility] Social History (As Of: 02/04/2024 16:53 [facility]) Tobacco: Former smoker, Smokeless Tobacco use: Never. N/A Cessation Counseling. Cigarettes (Last Updated: 04/03/2023 14:57 [facility] by Sherry Moraes RN) Alcohol: Former alcohol user (Last Updated: 04/03/2023 14:57 [facility] by Sherry Moraes RN) Substance Abuse: Never drug user (Last Updated: 04/03/2023 14:57 [facility] by Sherry Moraes RN) Preferred Language Preferred Language of Patient/Caregiver : [place] Preferred Mode of Communication : Verbal Dayna Camacho RN - 02/04/2024 16:49 [facility] Fall Risk Assessment Peds with adult : [...] ability Montano Fall Risk Score : 0 Dayna Camacho RN - 02/04/2024 16:49 [facility] Note * Quique Matthews: PERFORM Event Display: [facility] Urinalysis - Macroscopic - Text Authored Date: [facility] Urinalysis - Macroscopic Entered On: 02/04/2024 16:33 [facility] Performed On: 02/04/2024 16:32 [facility] by Quique Matthews Urinalysis Urinalysis Specimen Collection : 02/04/2024 16:33 [facility] UCC Urinalysis POC Color : Straw UCC Urinalysis POC Appearance : Clear Quique Matthews Machine Buffer - 02/04/2024 16:32 [facility] Patient Care team information Care Team Personnel Name: Gayla Barker ASSOCIATE PROFESSOR Member Role: Primary Care Physician Address[address] [address], [place] [address] Insurance Providers Guarantor name: UMER Dianelys JESSI [employer] Plan Information #: 2 Payer: Self Pay Member Number: NA Policy Number: NA
--- OUTSIDE RECORDS SUMMARY | 2024-02-24 19:38 | XMS_ITS | Encounter Summary ---
Author Organization [facility] Address [address] [facility] [place] [address] Care Team Providers Care Coat Fitter Name Role Phone Sheldon Delgado MD Unavailable [phone] Huseyin Dangelo MD Primary Care Provider [phone] Encounter Details Date Type Department Care Team (Latest Contact Info) Description 06/14/2020 Travel Social History Tobacco Use Types Packs/Day [...] have Coronavirus / COVID-19? No / Unsure 06/14/2020 9:12 AM CDT documented as of this encounter Plan of Treatment Not on file documented as of this encounter Visit Diagnoses Not on filedocumented in this encounter Care Teams Coat Fitter Relationship Specialty Start Date End Date Huseyin Dangelo MD PCP - General 07/29/19 06/15/20 Sheldon Delgado MD Obstetrics and Gynecology 05/23/19 documented as of this encounter
--- OUTSIDE RECORDS SUMMARY | 2024-02-24 19:38 | XMS_ITS | Patient Health Record ---
Author Organization [facility] Address [address] [facility] [address] [place], [place] [id number] Care Team Providers Care Systems Engineer Name Role Phone LYDIA HUBBARD, JANELLE Primary Care Provider Nicki buitrago Dayna Osborne Unavailable [phone] REASON FOR REFERRAL No Information MEDICATIONS Medication SIG (Take, Route, Frequency, Duration) Notes Start Date End Date Status predniSONE 10 mg 2 tab(s) orally once a day for 30 day(s) 03/27/2018 Active Hydroxychloroquine Sulfate 2 00 mg 1 tab(s) orally once a day for 30 day(s) 02/01/2018 Active azaTHIOprine 50 mg 1 tab(s) orally once a day for 30 day(s) 07/02/2018 Active SOCIAL HISTORY Sex Assigned At : Social History Observation Description Sex Assigned At Unknown PROBLEMS Problem Type ICD Code Onset Dates Problem Status W/U Status Risk SNOMED Code Notes Problem Arthralgia of multiple sites (M25.50) Active confirmed 70722495 Problem Microcytic anemia (D50.9) Active confirmed 491755094 Problem Systemic lupus erythematosus with other organ involvement, unspecified SLE type (M32.19) Active confirmed 68095223 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 577156784 PLAN OF TREATMENT Pending Test Test Name Order Date TPMT 07/05/2018 CPK (IH) 03/26/2018 CP (IH) 03/26/2018 Pulmonary Function Test (PFT) w/DLCO 09/2018 X ray : Hand left- outside order 018 X ray : Hand right- outside order 2017 X ray : Foot Left- outside order 018 X ray : Foot Right- outside order 2017 Pulmonary Function Test (PFT) w/DLCO TPMT ([facility]) 05/03/2018 Echocardiogram 2-D 03/26/2018 Echocardiogram 2-D 05/03/2018 Insurance Providers Payer Name Payer Address Payer Phone Subscriber Number Group Number Insured Name Patient Relationship to Insured Coverage Start Date Coverage End Date [facility] [employer] [address] [place] [address] [id number] Carito Rausch Self - patient is the insured 0 MEDICAL (GENERAL) HISTORY Medical History History ICD Code ear ache sinus problems swollen glands in neck anemia poor circulation swelling of ankles/feet bloating diarrhea indigestion stomach pain/cramps painful intercourse weight gain anxiety depression herpes Surgical History Surgery Date(Month/Year) appendectomy 2012 D & C 2018
--- OUTSIDE RECORDS SUMMARY | 2024-02-24 19:38 | XMS_ITS | Encounter Summary ---
Author Organization [facility] Address [address] [place] [address] Care Team Providers Care Manufacturing Shift Supervisor Name Role Phone Sheldon Delgado MD Unavailable [phone] Brian Mon MD Primary Care Provider [phone] Encounter Details Date Type Department Care Team (Latest Contact Info) Description 06/16/2020 Travel Social History Tobacco Use Types Packs/Day [...] on filedocumented in this encounter Care Teams Manufacturing Shift Supervisor Relationship Specialty Start Date End Date Brian Mon MD PCP - General Internal Medicine 06/16/20 12/19/20 Sheldon Delgado MD Obstetrics and Gynecology 05/23/19 documented as of this encounter
--- OUTSIDE RECORDS SUMMARY | 2024-02-24 19:38 | XMS_ITS | Encounter Summary ---
Author Organization [facility] Address [address] [facility] [place] [address] Care Team Providers Care Teaching Pastor Name Role Phone Sheldon Delgado MD Unavailable [phone] Huseyin Dangelo MD Primary Care Provider [phone] Reason for Visit * Reason Comments Refill Request Encounter Details Date Type Department Care Team (Late st Contact Info) Description 12/11/2019 Refill [facility] - Rheumatology [address] [place] [id number] Ashlee Magallon MD [address] [place] [id number] Refill Request Social History Tobacco Use Types [...] on filedocumented in this encounter Care Teams Teaching Pastor Relationship Specialty Start Date End Date Huseyin Dangelo MD PCP - General 07/29/19 06/15/20 Sheldon Delgado MD Obstetrics and Gynecology 05/23/19 documented as of this encounter
--- OUTSIDE RECORDS SUMMARY | 2024-02-24 19:38 | XMS_ITS | Encounter Summary ---
Author Organization [facility] Address [address] [facility] [place] [address] Care Team Providers Care Eye Physician Name Role Phone Sheldon Delgado MD Unavailable [phone] Brian Mon MD Primary Care Provider [phone] Reason for Visit * Reason Onset Date Comments Future Appointment 06/16/2020 Encounter Details Date Type Department Care Team (Late Contact Info) Description 06/16/2020 Telephone [facility] - MANAGER R D [address] [facility] [place] [address] Andrey Birch MD [address] [facility] [address] [place] [address] Future Appointment Social History Tobacco Use Types [...] encounter Miscellaneous Notes * Telephone Encounter - Andrey Birch MD - 06/16/2020 9:20 AM CDT Will due TV US today - please have set up. * Telephone Encounter - Leti Sauer MA - 06/16/2020 8:10 AM CDT Carito Madison called back. LMP unknown but says due date is 01/30/2021. Started care with Dr Delgado at [facility] but is wanting to transfer back to Dr. Birch. She has a history of miscarriage and had some bleeding and cramping over the weekend. She is wanting an ultrasound today. I madeher an appt for 11:45 but she wants to make sure she will get an u/s today. * Telephone Encounter - Betty Holly - 06/16/2020 7:21 AM CDT Who is calling? Self What is the reason for call? Requesting PN appt today with ultrasound. Pt accidentally canceled appt via MtoVhart. Please call back to reschedule appt for today. Expected Response from the Clinic? Call back documented in this encounter Plan of Treatment Not on file documented as of this encounter Visit Diagnoses Not on filedocumented in this encounter Care Teams Eye Physician Relationship Specialty Start Date End Date Brian Mon MD PCP - General Internal Medicine 06/16/20 12/19/20 Sheldon Delgado MD Obstetrics and Gynecology 05/23/19 documented as of this encounter
--- OUTSIDE RECORDS SUMMARY | 2024-02-24 19:39 | XMS_ITS | Encounter Summary ---
Author Organization [facility] Address [address] [place] [address] Care Team Providers Care Vendor Management Consultant Name Role Phone Huseyin Dangelo MD Primary Care Provider [phone] Reason for Visit * Reason Onset Date Comments Question 12/16/2018 Encounter Details Date Type Department Care Team (Late st Contact Info) Description 12/16/2018 Telephone [facility] - Rheumatology [address] [place], [place] [id number] Ashlee Magallon MD [address] [facility] [address] [place] [id number] Question Social History Tobacco Use Types Packs/Day Years Used Date Smoking Tobacco: Former Cigarettes Smokeless Tobacco: Never Alcohol Use Standard Drinks/Week Comments No 0 (1 standard drink = 0.6 oz pur e alcohol) Sex and Gender Information Value Date Recorded Sex Assigned at Not on file Gender Identity Not on file Sexual Orientation Not on file documented as of this encounter Miscellaneous Notes * Telephone Encounter - Samantha Caputo MA - 12/16/2018 12:[address] Magallon, patient would be okay to receive Botox injection. Patient notified and verbalized understanding and agreement. * Telephone Encounter - Anthony Martel Dianelys - 12/16/2018 12:02 PM CDT The patient had hand surgery a week ago, she is scheduled to get a botox injection today and asked if she should be getting it with her having Lupus. Please advise. documented in this encounter Plan of Treatment Not on file documented as of this encounter Visit Diagnoses Not on filedocumented in this encounter Care Teams Vendor Management Consultant Relationship Specialty Start Date End Date Huseyin Dangelo MD PCP - General Family Medicine 08/22/17 06/18/19 documented as of this encounter
--- OUTSIDE RECORDS SUMMARY | 2024-02-24 19:39 | XMS_ITS | Encounter Summary ---
Author Organization [facility] Address [address] [place] [address] Care Team Providers Care Brass Cutter Name Role Phone Huseyin Dangelo MD Primary Care Provider [phone] Reason for Visit * Reason Onset Date Comments Question 12/17/2018 Med Question 12/17/2018 POST-OP PROBLEM 12/17/2018 Encounter Details Date Type Department Care Team (Late st Contact Info) Description 12/17/2018 Telephone [facility] Medical [facility] - Rheumatology [address] [facility] [address] [place], [place] [id number] Ashlee Magallon MD [address] [facility] [address] [place] [address] Question; Med Question; POST-OP PROBLEM Social History Tobacco Use Types Packs/Day Years [...] Telephone Encounter - Samantha Caputo MA - 12/18/2018 1:42 PM CDT Patient notified of Dr Martines recommendations and verbalized understanding. She stated that she was prescribed Lyrica 75 mg BID and has only taken 2 doses so far. She has not noticed improvement, but does understand that it may take a few doses before she will notice improvement, but as the surgeon was the ordering physician she will report back to him on her response. She stated that he preferredDr Magallon to take over maintenance moving forward. I instructed patient that we would need to receivethe records from the surgeon either way. Per Dr Magallon, need to determine status of kidney biopsy andlabs to be completed prior to apt on 01/09. During the conversation patient confirmed she is taking Prednisone 10 am in the am and 5 mg pm and Leflunomide 20 mg daily. * Telephone Encounter - Samantha Caputo MA - 12/17/2018 3:15 PM CDT LMOVM requesting a return call in regards to Dr Magallon's response. * Telephone Encounter - Ashlee Magallon MD - 12/17/2018 12:50 PM CDT I have no input on this (not affected by lupus) and would prefer the surgeon directs this pain management issue. * Telephone Encounter - Keena Denny MA - 12/17/2018 10:53 AM CDT Please advise * Telephone Encounter - Anthony Martel - 12/17/2018 9:23 AM CDT The patient had right wrist surgery by Dr. Anthony Bagley at [facility] on 12-09-18. Her medial nerve was 80% cut, they went in and repaired it, she is having nerve pain, the surgeon asked her to call Dr Magallon and see if she thought Gabapentin and Lyrica would be better based on her Lupus DX. She stated that they wanted Dr Magallon to prescribe but later she said that Dr Bagley would also prescribe based on Dr Magallon's recommendation. She is requesting a call instead of using MyChart as she knows she will have additional questions. documented in this encounter Plan of Treatment Not on file documented as of this encounter Visit Diagnoses Not on filedocumented in this encounter Care Teams Brass Cutter Relationship Specialty Start Date End Date Huseyin Dangelo MD PCP - General Family Medicine 08/22/17 06/18/19 documented as of this encounter
--- OUTSIDE RECORDS SUMMARY | 2024-02-24 19:39 | XMS_ITS | Encounter Summary ---
Author Organization [facility] Address [address] [place] [address] Care Team Providers Care Head Baker Name Role Phone Huseyin Dangelo MD Primary Care Provider [phone] Reason for Visit * Reason Onset Date Comments Update 03/18/2019 Follow-up 03/18/2019 Encounter Details Date Type Department Care Team (Late st Contact Info) Description 03/18/2019 Telephone [facility] - Rheumatology [address] [place] [id number] Ashlee Magallon MD [address] [place] [phone] Update; Follow-up Social History Tobacco Use Types Packs/Day Years [...] encounter Miscellaneous Notes * Telephone Encounter - Angelique Abraham - 03/18/2019 10:13 AM CST A Petsy message was sent as the patient also contacted via Petsy. RIAL CLERK * Telephone Encounter - Ashlee Magallon MD - 03/18/2019 9:22 AM CST Well the GI symptoms could just be a virus so I advise waiting it out. Also she is to d/w PCP. Keep steroids at 10mg a day. RIAL CLERK * Telephone Encounter - Angelique Abraham - 03/18/2019 9:11 AM CST Please advise. RIAL CLERK * Telephone Encounter - Anthony Martel - 03/18/2019 8:48 AM CST The patient called , she is in an extreme flair, she feels like she is getting punched in the back. Yesterday she adjusted her Prednisone up to 20 mg because she hurt so bad, she was taking 10 mg perDr Naun's instructions. She also is getting sick to her stomach, everything she eats she has to use the bathroom within a few minutes, she thinks she has been like this the whole time. When asked about GI for her stomach she said she talked to them and they requested a doctors referral to be seen. She also asked about possible food allergies, should she see an esol teacher assistant about possible celiac disease? She does not have temperature but says she feels warm, her joints are hurting, but she doesn't feelsick. This is her 3rd call, she called the exchange last night and again this morning, she was advised that if she is really that bad that the ER may be a good choice. Please advise. RIAL CLERK documented in this encounter Plan of Treatment Not on file documented as of this encounter Visit Diagnoses Not on filedocumented in this encounter Care Teams Head Baker Relationship Specialty Start Date End Date Huseyin Dangelo MD PCP - General Family Medicine 08/22/17 06/18/19 documented as of this encounter
--- OUTSIDE RECORDS SUMMARY | 2024-02-24 19:39 | XMS_ITS | Encounter Summary ---
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 Procedures EMG WITH NERVE CONDUCTION STUDY Ashlee Magallon MD [address] [place] [address] [facility] [address] [place] [address] Referral ID Status Reason Start Date Expiration Date Visits Re quested Visits Authorized [id number] Closed 03/07/2019 09/03/2019 1 1 LINE CONSTRUCTION INSPECTOR Encounter Details Date Type Department Care Team (Late st Contact Info) Description 03/07/2019 Orders Only [facility] Medical [facility] - Rheumatology [address] [place] [address] Ashlee Magallon MD [address] [place] [address] 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 ; half-way (current) use of systemic steroids; Muscle weakness (generalized); Numbness and tingling of left upper and lower extremity Social History Tobacco Use Types Packs/Day Years [...] on file documented as of this encounter Results * XR HIPS BILATERAL 2VW (03/10/2019 12:30 PM PIPELINE CONSTRUCTION INSPECTOR) Anatomical Region Laterality Modality Radiographic Simin ging 03/10/2019 1:31 PM PIPELINE CONSTRUCTION INSPECTOR Impressions 03/10/2019 1:31 PM PIPELINE CONSTRUCTION INSPECTOR Unremarkable bilateral hips. Reading Radiologist: Jamarcus Oconnor MD on 03/10/2019 at 1:31 PM Narrative 03/10/2019 1:31 PM PIPELINE CONSTRUCTION INSPECTOR Examination: Two-view bilateral hips HISTORY: Bilateral hip [...] Magallon MD NEUROLOGY ORDERABLES [facility] RESULT SCAN documented in this encounter Visit Diagnoses Diagnosis 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- Primary Pain in joint, pelvic region and thigh half-way (current) use of systemic steroids Muscle weakness (generalized) Numbness and tingling of left upper and lower extremity 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 Pain in joint, pelvic region and thigh lobsterman (current) use of systemic steroids documented in this encounter Care Teams Diamond Setter Apprentice Relationship Specialty Start Date End Date Huseyin Dangelo MD PCP - General Family Medicine 08/22/17 06/18/19 documented as of this encounter
--- OUTSIDE RECORDS SUMMARY | 2024-02-24 19:39 | XMS_ITS | Encounter Summary ---
Author Organization [facility] Address [address] [place] [address] Care Team Providers Care Sales Contractor Name Role Phone Sheldon Delgado MD Unavailable [phone] Gayla Barker Primary Care Provider + Encounter Details Date Type Department Care Team (Latest Contact Info) Description 06/19/2019 Travel Social History Tobacco Use Types Packs/Day [...] have Coronavirus / COVID-19? No / Unsure 06/19/2019 11:35 AM CDT documented as of this encounter Plan of Treatment Not on file documented as of this encounter Visit Diagnoses Not on filedocumented in this encounter Care Teams Sales Contractor Relationship Specialty Start Date End Date Gayla Barker APRN-CNP PCP - General Nurse Practitioner 06/19/19 07/28/19 Sheldon Delgado MD Obstetrics and Gynecology 05/23/19 documented as of this encounter
--- OUTSIDE RECORDS SUMMARY | 2024-02-24 19:39 | XMS_ITS | Encounter Summary ---
Author Organization [facility] Address [address] [place] [address] Care Team Providers Care Producer Director Name Role Phone Huseyin Dangelo MD Primary Care Provider [phone] Reason for Visit * Reason Onset Date Comments Med Question 01/27/2019 Update 01/27/2019 Encounter Details Date Type Department Care Team (Late st Contact Info) Description 01/27/2019 Telephone [facility] - Rheumatology [address] [place] [phone] Ashlee Magallon MD [address] [place] [phone] Med Question; Update Social History Tobacco Use Types Packs/Day Years [...] * Telephone Encounter - Angelique Abraham - 01/27/2019 3:16 PM CST FYI - Pt responded via uBeam and am awaiting a response on scheduling next week. AVER APPRENTICE DECORATIVE * Telephone Encounter - Angelique Abraham - 01/27/2019 2:04 PM CST A uBeam message was sent requesting patient to come in tomorrow (01/28/19) or Sunday01/29/19. AVER APPRENTICE DECORATIVE * Telephone Encounter - Anthony Martel - 01/27/2019 8:45 AM CST The patient called, she stopped using her leflunomide per Dr Magallon, she states she has been having feeling sick and has had chest pains for the last 4 days, when asked she did not go to the ER, she stated that she did not think it was anything serious but it was very bothersome. When asked to describe her sick feeling, she stated that has had several things going on, she has has wrist surgery due to a cut artery from a glass window, she also has been taking Augmentin. She states that she has been feeling this way since she went off the Leflunomide. She asked if she could have another echocardiogram 2D with doppler and a PFT just to satisfy her mind. When asked she has never seen a tube splicer. She asked if it could be inflammation? She asked if she could come in this week to see her? Please advise AVER APPRENTICE DECORATIVE documented in this encounter Plan of Treatment Not on file documented as of this encounter Visit Diagnoses Not on filedocumented in this encounter Care Teams Producer Director Relationship Specialty Start Date End Date Huseyin Dangelo MD PCP - General Family Medicine 08/22/17 06/18/19 documented as of this encounter
--- OUTSIDE RECORDS SUMMARY | 2024-02-24 19:39 | XMS_ITS | Encounter Summary ---
Author Organization [facility] Address [address] [place] [address] Care Team Providers Care Cuff Presser Name Role Phone Huseyin Dangelo MD Primary Care Provider [phone] Reason for Visit * Reason Onset Date Comments Update 03/25/2019 Order 03/25/2019 Question 03/25/2019 Encounter Details Date Type Department Care Team (Late st Contact Info) Description 03/25/2019 Telephone [facility] - Rheumatology [address] [place], [place] [phone] Ashlee Magallon MD [address] [place] [address] Update; Order; Question Social History Tobacco Use Types Packs/Day [...] * Telephone Encounter - Angelique Abraham - 03/25/2019 12:25 PM CST Bflyhart message sent. CTIONAL BORE OPERATOR * Telephone Encounter - Ashlee Magallon MD - 03/25/2019 10:52 AM CST I suggest we refer to her to [facility] or [facility] rheumatology for ongoing care, due to the severity of her various symptoms, inability to take lupus medications, and dependency on steroids. She needs to beunder the care of a university team that deals with complex cases such as hers. Whomever can get her in sooner is fine with me. Will not be ordering testing at this time. CTIONAL BORE OPERATOR * Telephone Encounter - Angelique Abraham - 03/25/2019 9:51 AM CST Please advise. CTIONAL BORE OPERATOR * Telephone Encounter - Anthony Martel - 03/25/2019 8:35 AM CST The patient called the exchange, they contacted our office, I returned the call to the patient. Sheis scheduled to see Dr Magallon today at 10:40. The patient stated she has diarrhea since 03-24-19, has been vomiting since since 2 am and has been dizzy for the last 2 weeks. Per a discussion with Dr Magallon she stopped taking her hydroxychloroquine 2 days ago, since stopping it she has had extreme joint pain. On 03-24-19 she decided to take the hydroxychloroquine again thinking that maybe it really was working, she took a dose at 7 pm on 03-24-19. She denies a fever or other symptoms, she is taking her Prednisone and hydroxychloroquine. She does not want to come in for her appointment due to her symptoms. She is requesting new lab orders so she can get them drawn to see what has changed. She asked that Dr Magallon put in a lab order for every single thing that she thinks it could be, can she test for Crones disease, celiac disease or is there anything else? There is a [facility] close to her house. When the patient was asked about going to the ER for her symptoms, she stated that she doesn't wantto do that because they never do anything, they always tell her that her labs are fine. She only has insurance through 03-28-19, she will not have it for a month until she can get on her husbands. Please advise. Please advise. CTIONAL BORE OPERATOR documented in this encounter Plan of Treatment Not on file documented as of this encounter Visit Diagnoses Not on filedocumented in this encounter Care Teams Cuff Presser Relationship Specialty Start Date End Date Huseyin Dangelo MD PCP - General Family Medicine 08/22/17 06/18/19 documented as of this encounter
--- OUTSIDE RECORDS SUMMARY | 2024-02-24 19:39 | XMS_ITS | Encounter Summary ---
Author Organization [facility] Address [address] [facility] [place] [address] Care Team Providers Care Soil And Plant Scientist Name Role Phone Huseyin Dangelo MD Primary Care Provider [phone] Sheldon Delgado MD Unavailable [phone] Reason for Visit * Reason Onset Date Comments MEDICATION REFILL 05/22/2019 Encounter Details Date Type Department Care Team (Late st Contact Info) Description 05/22/2019 Refill [facility] Medical [facility] - Rheumatology [address] [facility] [address] [place], [place] [phone] Ashlee Magallon MD [address] [facility] [address] [place] [address] MEDICATION REFILL Social History Tobacco [...] have Coronavirus / COVID-19? No / Unsure 05/22/2019 12:45 PM CDT documented as of this encounter Miscellaneous Notes * Telephone Encounter - Mony Abrahampayal Hollis - 05/23/2019 8:40 AM CDT NON-BIOLOGIC REFILL REQUEST Last OV: Today 05/23/2019 Next Appointment: Last Fill: 02/11/2019 Vitamin D level completed on 10/08/2018 w/results of 22.2. Recent Labs Component Name 05/22/19 1226 03/04/19 1529 01/15/19 1138 WBC 6.6 5.4 4.4 HGB 11.1* 12.1 11.9 PLTCOUNT 307 325 290 MCV 89.2 90.8 87 Recent Labs Component Name 05/22/19 1226 03/04/19 1529 01/15/19 1138 CREATININE 0.67 0.64 0.70 BUN 10 15 16 SODIUM 137 139 142 POTASSIUM 4.0 3.9 4.8 Recent Labs Component Name 05/22/19 1226 03/04/19 1529 01/15/19 1138 EGFR >60 123 120 EGFRAFR >60 143 138 Recent Labs Component Name 05/22/19 1226 03/04/19 1529 01/15/19 1138 AST 24 13 39 ALT 28 22 21 ALKPHOS 39* 56 44 TBIL 0.3 0.4 0.3 Last ESR: Recent Labs Component Name 05/22/19 1226 03/04/19 1529 01/15/19 1138 SEDRATE 14 17 16 Last 3 CRP: Recent Labs Component Name 05/22/19 1226 03/04/19 1529 01/15/19 1138 CRP 0.40 2.2 <1 documented in this encounter Plan of Treatment Not on file documented as of this encounter Visit Diagnoses Not on filedocumented in this encounter Care Teams Soil And Plant Scientist Relationship Specialty Start Date End Date Huseyin Dangelo MD PCP - General Family Medicine 08/22/17 06/18/19 Sheldon Delgado MD Obstetrics and Gynecology 05/23/19 documented as of this encounter
--- OUTSIDE RECORDS SUMMARY | 2024-02-24 19:39 | XMS_ITS | Encounter Summary ---
Author Organization [facility] Address [address] [place] [address] Care Team Providers Care Lead Net Software Developer Name Role Phone Huseyin Dangelo MD Primary Care Provider [phone] Encounter Details Date Type Department Care Team (Late st Contact Info) Description 12/27/2018 Orders Only [facility] Group - Rheumatology [address] [facility] [address] [place] [phone] Ashlee Magallon MD [address] [facility] [address] [place] [address] Other forms of systemic lupus erythematosus, unspecified organ involvement status (HCC); Encounter for long-term (current) use of medications; Proteinuria, unspecified type; Dysuria Social History Tobacco Use Types Packs/Day Years Used Date Smoking Tobacco: Former Cigarettes Smokeless Tobacco: Never Alcohol Use Standard Drinks/Week Comments No 0 (1 standard drink = 0.6 oz pur e alcohol) Sex and Gender Information Value Date Recorded Sex Assigned at Not on file Gender Identity Not on file Sexual Orientation Not on file documented as of this encounter Miscellaneous Notes * Addendum Note - Angelique Abraham - 01/10/2019 4:03 PM CSTAddended by: ANGELIQUE ABRAHAM on: 01/10/2019 04:03 PM Modules accepted: Orders O MECHANIC documented in this encounter Plan of Treatment Not on file documented as of this encounter Visit Diagnoses Diagnosis Other forms of systemic lupus erythematosus, unspecified organ involvement status (HCC) Encounter for long-term (current) use of medications Encounter for long-term (current) use of other medications Proteinuria, unspecified type Dysuria documented in this encounter Care Teams Lead Net Software Developer Relationship Specialty Start Date End Date Huseyin Dangelo MD PCP - General Family Medicine 08/22/17 06/18/19 documented as of this encounter
--- OUTSIDE RECORDS SUMMARY | 2024-02-24 19:39 | XMS_ITS | Encounter Summary ---
Author Organization [facility] Address [address] [place] [address] Care Team Providers Care Traffic Supervisor Name Role Phone Huseyin Dangelo MD Primary Care Provider [phone] Reason for Visit * Reason Onset Date Comments Results 03/11/2019 Encounter Details Date Type Department Care Team (Late st Contact Info) Description 03/11/2019 Telephone [facility] - Rheumatology [address] [place] [phone] Ashlee Magallon MD [address] [place] [phone] Results Social History Tobacco Use Types Packs/Day Years [...] * Telephone Encounter - Angelique Abraham - 03/11/2019 10:46 AM CST Patient has contacted the office several times starting yesterday 03/10/2019 and has been informed that once the results are reviewed by Dr. Magallon we will contact her. Patient has also sent a Xymogen message this AM requesting the results which has been sent to Dr. Magallon for review. OMER SERVICE TECHNICIAN * Telephone Encounter - Shauna Johnson - 03/11/2019 8:54 AM CST The patient called for results. I informed her they have not been read yet. She then said can you just tell me what they say or if anything is alarming . I informed her I am not a physician so I will have to forward her request to Dr. Magallon. OMER SERVICE TECHNICIAN documented in this encounter Plan of Treatment Not on file documented as of this encounter Visit Diagnoses Not on filedocumented in this encounter Care Teams Traffic Supervisor Relationship Specialty Start Date End Date Huseyin Dangelo MD PCP - General Family Medicine 08/22/17 06/18/19 documented as of this encounter
--- OUTSIDE RECORDS SUMMARY | 2024-02-24 19:39 | XMS_ITS | Encounter Summary ---
Author Organization [facility] Address [address] [facility] [place] [address] Care Team Providers Care White Sugar Syrup Operator Name Role Phone Huseyin Dangelo MD Primary Care Provider [phone] Reason for Visit * Reason Onset Date Comments Results 01/16/2019 Encounter Details Date Type Department Care Team (Late st Contact Info) Description 01/16/2019 Telephone [facility] - Rheumatology [address] [place] [address] Ashlee Magallon MD [address] [place] [phone] Results Social History Tobacco Use Types Packs/Day [...] encounter Miscellaneous Notes * Telephone Encounter - Ashlee Magallon MD - 01/16/2019 11:30 AM CST See result note Please see how she is feeling (if she answers) CTOR OF SCIENCE * Telephone Encounter - Angelique Abraham - 01/16/2019 11:24 AM CST Please advise. Results are finalized. CTOR OF SCIENCE * Telephone Encounter - Anthony Martel - 01/16/2019 10:54 AM CST The patient called to FU on lab results from 01-15-19, she asked if she is not available for us to leave a message on her cell phone with Dr Magallon's review. CTOR OF SCIENCE documented in this encounter Plan of Treatment Not on file documented as of this encounter Visit Diagnoses Not on filedocumented in this encounter Care Teams White Sugar Syrup Operator Relationship Specialty Start Date End Date Huseyin Dangelo MD PCP - General Family Medicine 08/22/17 06/18/19 documented as of this encounter
--- OUTSIDE RECORDS SUMMARY | 2024-02-24 19:39 | XMS_ITS | Encounter Summary ---
Author Organization [facility] Address [address] [place] [address] Care Team Providers Care Product Development Carpenter Name Role Phone Huseyin Dangelo MD Primary Care Provider Sheldon Delgado MD Unavailable [phone] Reason for Visit * Reason Comments Systemic Lupus Erythematosis Follow-up Encounter Details Date Type Department Care Team (Late st Contact Info) Description 05/23/2019 11:00 AM CDT Video Visit [facility] - Rheumatology [address] [place] [address] Ashlee Magallon MD [address] [place] [address] Systemic lupus erythematosus, unspecified SLE type, unspecified organ involvement status (HCC) ; Pain in joint, multiple sites; Acute URI Social History Tobacco Use Types Packs/Day Years [...] PM CDT documented as of this encounter Patient Instructions * Patient Instructions* Ashlee Magallon MD - 05/23/2019 11:35 AM CDT Please see if patient is willing to try to increase HCQ to 300mg a day (cut one in half). Continue prednisone 10mg a day, wean as possible depending on joint pain. Call with update next week. We will send HCG results to [facility] physician. documented in this encounter Progress Notes * Ashlee Magallon MD - 05/23/2019 10:53 AM CDT Images from the original note were not included. Telemedicine Note Patient Verification & Telemedicine Based Consent I am proceeding with this evaluation at the direct request of the patient. I have verified this is the correct patient and have obtained verbal consent from the patient/surrogate to perform this voluntary telemedicine encounter evaluation. I have explained risks (including potential loss of confiden tiality), benefits, alternatives, and the potential need for subsequent face to face care. Patient/surrogate understands that there is a risk of medical inaccuracies given that our recommendations will be made based on reported data. Knowing that there is a risk that this information is not reported accurately, and that the telemedicine audio, or data feed may be incomplete, the patient agrees toproceed with evaluation and holds us harmless knowing these risks. In this evaluation, we will be providing recommendations only. The patient/surrogate has been notified that other healthcare professionals (including students, residents and technical personnel) may be involved in this audio evaluation. All laws concerning confidentiality and patient access to medical records and copies of medicalrecords apply to telemedicine. I have reviewed this above verification and consent paragraph with the patient/surrogate. Assessment & Plan Umer is a 29 year old female who has completed a telemedicine encounter regarding: SLE flare, joint pain, URI. 1. SLE - dsDNA higher, C4 down, however C3/ESR/CRP are wnl, and no new cytopenias or renal abnormalities. Overall she may be having a mild SLE flare, have instructed her to increase HCQ to 400mg qd (from 200mg), she refuses at this time. Continue prednisone 10mg a day, will try to wean as possible. vitamins and other recommendations as per [facility] for current . 2. Current - decreasing HCG values are concerning, will send results to [facility] physician. - HCQ is safe in , as is Imuran, however pt has experienced s/w with Imuran in the past. 3. URI illness - tested negative for flu x 2 at ER, per pt she has an appointment for COVID-19 testing with Dominique in a few days. APAP prn. To ER with any severe symptoms. Patient location: Home This encounter was performed using: audio and video The plan was reviewed with the patient and the patient confirmed understanding of the plan and all follow-up steps. All aspects of patient's medical history were reviewed and updated as documented in Epic Subjective Chief Complaint Patient presents with ??? Systemic Lupus Erythematosis Follow-up Fever, chest pain, cough, joint pain. Started around 05/15. Went to ER, tested neg for FLU. Getting tested for COVID - in a few days - ER arranging. On 10mg prednisone, HCQ 200mg/d, has not increased as directed to 400mg qd. Every joint is hurting no swelling today but intermittently in hands. [facility] Ob - high risk - Dr Sheldon Delgado They confirmed per pt Numbers have dropped a bit (HCG) Constitutional: Positive for fatigue, fevers, chills, sweats, malaise Ears, nose, mouth, throat, and face: positive for sinus trouble, persistent sore throat, congestion Cardiovascular: negative Gastrointestinal: negative Musculoskeletal:positive for joint pain, back pain, muscle pain Neurological: negative Behavioral/Psych: negative Objective Physical Exam AAOX3 No distress is obvious Extremities do not appear swollen with limited views on the video visit Moving all extremities well Results for UMER ELDER ( ) as of 05/23/2019 10:55 Ref. Range 05/22/2019 12:27 HCG Quant Serum Latest Units: mIU/mL 346.88 Recent Labs Component Name 05/22/19 1226 03/04/19 1529 01/15/19 1138 10/01/18 2050 09/25/18 1103 08/22/18 1121 07/05/18 1610 WBC 6.6 5.4 4.4 3.9* 4.8 7.0 8.1 RBC 3.90 4.26 4.12 4.08 4.44 4.31 4.25 HGB 11.1* 12.1 11.9 10.7* 11.6* 10.8* 10.1* HCT 34.8* 38.7 35.9 34.0* 37.1 35.0* 33.4* MCV 89.2 90.8 87 83.3 83.6 81.2 78.6* MCHC 31.9 31.3* 33.1 31.5 31.3* 30.9 30.2* PLTCOUNT 307 325 290 238 277 333 371 NEUTPCT - - - 77.9* 81.1* 89.2* 81.6* LYMPHPCT - 17.4 - 15.5* - 7.1* 13.8* MONOCYTPCT 2.4* - 8 - - - - EOSINPCT 0.0 0.2 1 - - - - BASOPHILPCT - 0.2 - 0.3 - 0.1 0.2 GRANSIMMPCT - - - 0.3 - 0.3 0.4 NEUTABS - - - 3.01 3.9 6.27 6.58 LYMPHABS 0.53* - 0.4* 0.60* - 0.50* 1.11 MONOCYTABS 0.16* - 0.3 - - - - BASOABS 0.00 - 0.0 0.01 - 0.01 0.02 IMMGRANSABS 0.02 - 0.0 - - - - Recent Labs Component Name 05/22/19 1226 03/04/19 1529 01/15/19 1138 SODIUM 137 139 142 POTASSIUM 4.0 3.9 4.8 CHLORIDE 105 102 102 CO2 22* 29 21 BUN 10 15 16 CREATININE 0.67 0.64 0.70 GLUCOSE 100 90 96 CALCIUM 9.2 9.8 9.4 ALT 28 22 21 ALKPHOS 39* 56 44 AST 24 13 39 TBIL 0.3 0.4 0.3 TPROT 7.4 7.2 7.1 EGFR >60 123 120 EGFRAFR >60 143 138 ALBUMIN 4.2 4.2 4.3 Recent Labs Component Name 05/22/19 1226 03/04/19 1529 01/15/19 1138 09/25/18 1103 ESR - - - - 36* SEDRATE 14 17 16 - - - = values in this interval not displayed. Recent Labs Component Name 05/22/19 1226 03/04/19 1529 01/15/19 1138 CRP 0.40 2.2 <1 Results for UMER ELDER ( ) as of 05/23/2019 10:55 Ref. Range 10/08/2018 10:35 01/15/2019 11:38 01/29/2019 12:31 01/29/2019 12:32 03/04/2019 15:29 05/22/2019 12:26 Complement C3 Latest Ref Range: 82 - 167 mg/dL 68 (L) 81 (L) 96 88 Complement C4 Latest Ref Range: 14 - 44 mg/dL 10 (L) 12 (L) 13 (L) 10 (L) Ashlee Magallon MD documented in this encounter Plan of Treatment Not on file documented as of this encounter Visit Diagnoses Diagnosis Systemic lupus erythematosus, unspecified SLE type, unspecified organ involvement status (HCC)- Primary Pain in joint, multiple sites Acute URI Acute upper respiratory infections of unspecified site documented in this encounter Care Teams Product Development Carpenter Relationship Specialty Start Date End Date Huseyin Dangelo MD PCP - General Family Medicine 08/22/17 06/18/19 Sheldon Delgado MD Obstetrics and Gynecology 05/23/19 documented as of this encounter
--- OUTSIDE RECORDS SUMMARY | 2024-02-24 19:39 | XMS_ITS | Encounter Summary ---
Author Organization [facility] Address [address] [place] [address] Care Team Providers Care Plate Mill Mill Hand Name Role Phone Huseyin Dangelo MD Primary Care Provider Reason for Visit * Reason Onset Date Comments Allergic reaction 12/18/2018 Encounter Details Date Type Department Care Team (Late st Contact Info) Description 12/18/2018 Telephone [facility] - Rheumatology [address] [place], [place] [id number] Ashlee Magallon MD [address] [place] [phone] Allergic reaction Social History Tobacco Use Types Packs/Day Years [...] Encounter - Samantha Caputo MA - 12/18/2018 1:48 PM CDT Spoke with patient. See telephone call from 12/17/18. * Telephone Encounter - Ashlee Magallon MD - 12/18/2018 8:35 AM CDT Pt called the exchange last night with reports of an allergic reaction to a new medication that wasprescribed from a different physician - she was directed to the ER. Staff please call this morning and see how she is doing. MW documented in this encounter Plan of Treatment Not on file documented as of this encounter Visit Diagnoses Not on filedocumented in this encounter Care Teams Plate [place] Mill Hand Relationship Specialty Start Date End Date Huseyin Dangelo MD PCP - General Family Medicine 08/22/17 06/18/19 documented as of this encounter
--- OUTSIDE RECORDS SUMMARY | 2024-02-24 19:39 | XMS_ITS | Encounter Summary ---
Author Organization [facility] Address [address] [place] [address] Care Team Providers Care Qualitative Researcher Name Role Phone Huseyin Dangelo MD Primary Care Provider [phone] Reason for Visit * Reason Onset Date Comments Concerns 11/07/2018 Encounter Details Date Type Department Care Team (Late st Contact Info) Description 11/07/2018 Telephone [facility] - Rheumatology [address] [facility] [address] [place], [place] [id number] Ashlee Magallon MD [address] [facility] [address] [place] [phone] Concerns Social History Tobacco Use Types Packs/Day Years [...] * Telephone Encounter - Angelique Abraham - 11/07/2018 2:32 PM CDT FYI * Telephone Encounter - Anthony Martel - 11/07/2018 2:06 PM CDT Patient returned a call, she reports flu like symptoms, body aches, sore throat, general not feeling well. She was advised to call her PCP and that we do not handle general illness. She states that her PCP sucks, she doesn't like him, I gave her the number for [facility]. She thought we should handle it because of her stuff going on. 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 * Telephone Encounter - Ashlee Magallon MD - 11/07/2018 1:48 PM CDT Can you please call and get more information about her exact symptoms. Also please inform her that routine infections will need to be treated by PCP. * Telephone Encounter - Angelique Abraham - 11/07/2018 11:23 AM CDT Please advise. * Telephone Encounter - Jimena Sequeira - 11/07/2018 10:54 AM CDT Patient called and wants to talk to Dr. Magallon about her cough/cold/sore throat issues. I directed patient back to PCP she said she wants to talk to Dr. Magallon because she is the one that diagnosed her Kidney Failure. documented in this encounter Plan of Treatment Not on file documented as of this encounter Visit Diagnoses Not on filedocumented in this encounter Care Teams Qualitative Researcher Relationship Specialty Start Date End Date Huseyin Dangelo MD PCP - General Family Medicine 08/22/17 06/18/19 documented as of this encounter
--- OUTSIDE RECORDS SUMMARY | 2024-02-24 19:39 | XMS_ITS | Encounter Summary ---
Author Organization [facility] Address [address] [place] [address] Care Team Providers Care Healthcare Administrator Name Role Phone Huseyin Dangelo MD Primary Care Provider Reason for Visit * Reason Onset Date Comments Medication Clarification 04/17/2019 Encounter Details Date Type Department Care Team (Late st Contact Info) Description 04/17/[address] [facility] - DECISION SUPPORT MANAGER [facility] [facility], [address] [place] [address] Andrey Birch MD [address] [facility] [address] [place] [address] Medication Clarification Social History Tobacco Use Types Packs/Day Years [...] Miscellaneous Notes * Telephone Encounter - Samantha Monk - 04/17/2019 2:36 PM CST Per Claudia fox detailed information regarding Dr. Reyes response/recommendations. S INSPECTOR * Telephone Encounter - Andrey Birch MD - 04/17/2019 2:10 PM CST Should be fine with Meloxicam. Risks associated with Clomid include an increased rate of twinning from a baseline rate of ~1:200 to a rate of ~1:100 due to multiple fertilized ovulations the same cycle. There is an uncommon occurrence of ovarian hyperstimulation syndrome. These risks include need for hospitalization for pain andfluid management. S INSPECTOR * Telephone Encounter - Samantha Monk - 04/17/2019 1:34 PM CST Pt called office wanting to know if her clomid is safe to take while on the medications on her med list to include the Meloxicam. Also if there are any known side effects with clomid. Please advise. S INSPECTOR documented in this encounter Plan of Treatment Not on file documented as of this encounter Visit Diagnoses Not on filedocumented in this encounter Care Teams Healthcare Administrator Relationship Specialty Start Date End Date Huseyin Dangelo MD PCP - General Family Medicine 08/22/17 06/18/19 documented as of this encounter
--- OUTSIDE RECORDS SUMMARY | 2024-02-24 19:39 | XMS_ITS | Encounter Summary ---
Author Organization [facility] Address [address] [place] [address] Care Team Providers Care Critical Care Nurse Name Role Phone Huseyin Dangelo MD Primary Care Provider [phone] Reason for Visit * Reason Onset Date Comments Pain Joint 03/05/2019 Encounter Details Date Type Department Care Team (Late st Contact Info) Description 03/05/2019 Telephone [facility] - Rheumatology [address] [place] [phone] Ashlee Magallon MD [address] [place] [phone] Pain Joint Social History Tobacco Use Types Packs/Day Years [...] * Telephone Encounter - Angelique Abraham - 03/05/2019 3:24 PM CST mychart message sent. Order placed for higher prednisone dose x3 days so she does not run out of her maintenance dose sooner as this is why she did not start the taper dose previously. EN THERAPY TECHNICIAN * Telephone Encounter - Ashlee Magallon MD - 03/05/2019 2:34 PM CST Pt called the exchange at 7pm last night. Reported a lupus flare with increased joint pain and swelling. Advised to increase prednisone to 30mg (from baseline 15mg). Labs are unremarkable. Please advise her to continue prednisone 30mg x 3 days then resume 15mg. Call if not improving. Recent Labs Component Name 03/04/19 1529 01/15/19 1138 10/01/18 2050 09/25/18 1103 08/22/18 1121 07/05/18 1610 WBC 5.4 4.4 3.9* 4.8 7.0 8.1 RBC 4.26 4.12 4.08 4.44 4.31 4.25 HGB 12.1 11.9 10.7* 11.6* 10.8* 10.1* HCT 38.7 35.9 34.0* 37.1 35.0* 33.4* MCV 90.8 87 83.3 83.6 81.2 78.6* MCHC 31.3* 33.1 31.5 31.3* 30.9 30.2* PLTCOUNT 325 290 238 277 333 371 NEUTPCT - - 77.9* 81.1* 89.2* 81.6* LYMPHPCT 17.4 - 15.5* - 7.1* 13.8* MONOCYTPCT - 8 - - - - EOSINPCT 0.2 1 - - - - BASOPHILPCT 0.2 - 0.3 - 0.1 0.2 GRANSIMMPCT - - 0.3 - 0.3 0.4 NEUTABS - - 3.01 3.9 6.27 6.58 LYMPHABS - 0.4* 0.60* - 0.50* 1.11 MONOCYTABS - 0.3 - - - - BASOABS - 0.0 0.01 - 0.01 0.02 IMMGRANSABS - 0.0 - - - - Recent Labs Component Name 03/04/19 1529 01/15/19 1138 10/08/18 1034 SODIUM 139 142 141 POTASSIUM 3.9 4.8 3.8 CHLORIDE 102 102 105 CO2 29 21 21 BUN 15 16 15 CREATININE 0.64 0.70 0.60 GLUCOSE 90 96 84 CALCIUM 9.8 9.4 8.8 ALT 22 21 22 ALKPHOS 56 44 45 AST 13 39 18 TBIL 0.4 0.3 0.2 TPROT 7.2 7.1 6.8 EGFR 123 120 126 EGFRAFR 143 138 145 Recent Labs Component Name 03/04/19 1529 01/15/19 1138 10/08/18 1034 CRP 2.2 <1 9 Recent Labs Component Name 03/04/19 1529 01/15/19 1138 10/08/18 1034 09/25/18 1103 ESR - - - - 36* SEDRATE 17 16 18 - - - = values in this interval not displayed. Recent Labs Component Name 03/04/19 1529 10/08/18 1034 08/22/18 1121 CK 16* 10* 16* EN THERAPY TECHNICIAN documented in this encounter Plan of Treatment Not on file documented as of this encounter Visit Diagnoses Not on filedocumented in this encounter Care Teams Critical Care Nurse Relationship Specialty Start Date End Date Huseyin Dangelo MD PCP - General Family Medicine 08/22/17 06/18/19 documented as of this encounter
--- OUTSIDE RECORDS SUMMARY | 2024-02-24 19:39 | XMS_ITS | Encounter Summary ---
Author Organization [facility] Address [address] [place] [address] Care Team Providers Care Psychological Anthropologist Name Role Phone Huseyin Dangelo MD Primary Care Provider [phone] Sheldon Delgado MD Unavailable [phone] Encounter Details Date Type Department Care Team (Late st Contact Info) Description 06/16/2019 Orders Only [facility] - Rheumatology [address] [facility] [address] [place] [address] Ashlee Magallon MD [address] [facility] [address] [place] [address] Other forms of systemic lupus erythematosus, unspecified organ involvement status (HCC) ; Encounter for long-term (current) use of medications; High risk medications (not anticoagulants) long-term use; Systemic lupus erythematosus, unspecified SLE type, unspecified organ involvement status (HCC) Social History Tobacco Use Types Packs/Day [...] PM CDT documented as of this encounter Plan of Treatment Not on file documented as of this encounter Procedures Procedure Name Priority Date/Time Associated Diagnosis Comments URINALYSIS W/MICROSCOPIC REFLEX TO CULTURE Routine 06/18/2019 Encounter for long-term (current) use of medications High risk medications (not anticoagulants) long-term use Systemic lupus erythematosus, unspecified SLE type, unspecified organ involvement status (HCC) C-REACTIVE PROTEIN Routine 06/18/2019 Encounter for long-term (current) use of medications High risk medications (not anticoagulants) long-term use Systemic lupus erythematosus, unspecified SLE type, unspecified organ involvement status (HCC) ERYTHROCYTE SEDIMENTATION RATE Routine 06/18/2019 Encounter for long-term (current) use of medications High risk medications (not anticoagulants) long-term use Systemic lupus erythematosus, unspecified SLE type, unspecified organ involvement status (HCC) CBC W AUTO DIFFERENTIAL Routine 06/18/2019 Encounter for long-term (current) use of medications High risk medications (not anticoagulants) long-term use Systemic lupus erythematosus, unspecified SLE type, unspecified organ involvement status (HCC) COMPREHENSIVE METABOLIC PANEL Routine 06/18/2019 Encounter for long-term (current) use of medications High risk medications (not anticoagulants) long-term use Systemic lupus erythematosus, unspecified SLE type, unspecified organ involvement status (HCC) COMPLEMENT C3 C4 PANEL Routine 06/18/2019 Encounter for long-term (current) use of medications High risk medications (not anticoagulants) long-term use Systemic lupus erythematosus, unspecified SLE type, unspecified organ involvement status (HCC) documented in this encounter Results * URINALYSIS W/MICROSCOPIC REFLEX TO CULTURE (06/18/2019) Urine URINE SPECIMEN OBTAINED BY CLEAN CATCH PROCEDURE / Unknown 06/18/2019 Ashlee Magallon MD LAB - URINALYSIS ORD ERABLES OTHER LAB * COMPLEMENT C3 C4 PANEL (06/18/2019) Blood BLOOD SPECIMEN / Unknown 06/18/2019 Ashlee Magallon MD LAB - CHEMISTRY GREGORY RIVERA Performing Organization Address [facility] de Phone Number OTHER LAB * C-REACTIVE PROTEIN (06/18/2019) Blood BLOOD SPECIMEN / Unknown 06/18/2019 Ashlee Magallon MD LAB - CHEMISTRY GREGORY RIVERA Performing Organization Address [facility] Co de Phone Number OTHER LAB * ERYTHROCYTE SEDIMENTATION RATE (06/18/2019) Erythrocyte Sedimentation Rate (EXTERNAL RESULT) 17 MM/HOUR OTHER LAB Blood BLOOD SPECIMEN / Unknown 06/18/2019 Ashlee Magallon MD LAB - HEMATOLOGY [place] TOMAS Performing Organization Address [facility] Co de Phone Number OTHER LAB * COMPREHENSIVE METABOLIC PANEL (06/18/2019) Blood BLOOD SPECIMEN / Unknown 06/18/2019 Ashlee Magallon MD LAB - CHEMISTRY GREGORY RIVERA Performing Organization Address [facility] Co de Phone Number OTHER LAB * CBC WITH DIFFERENTIAL (06/18/2019) Blood BLOOD SPECIMEN / Unknown 06/18/2019 Ashlee Magallon MD LAB - HEMATOLOGY [place] TOMAS Performing Organization Address [facility] Co de Phone Number OTHER LAB documented in this encounter Visit Diagnoses Diagnosis Other forms of systemic lupus erythematosus, unspecified organ involvement status (HCC)- Primary Encounter for long-term (current) use of medications Encounter for long-term (current) use of other medications High risk medications (not anticoagulants) long-term use Encounter for long-term (current) use of other medications Systemic lupus erythematosus, unspecified SLE type, unspecified organ involvement status (HCC) documented in this encounter Care Teams Psychological Anthropologist Relationship Specialty Start Date End Date Huseyin Dangelo MD PCP - General Family Medicine 08/22/17 06/18/19 Sheldon Delgado MD Obstetrics and Gynecology 05/23/19 documented as of this encounter
--- OUTSIDE RECORDS SUMMARY | 2024-02-24 19:39 | XMS_ITS | Encounter Summary ---
Author Organization [facility] Address [address] [place] [address] Care Team Providers Care Ground Host/Hostess Name Role Phone Huseyin Dangelo MD Primary Care Provider [phone] Reason for Visit * Reason Comments Autoimmune Disease Encounter Details Date Type Department Care Team (Late st Contact Info) Description 02/25/2019 11:00 AM HYDRO ELECTRIC STATION OPERATOR Office Visit [facility] - Rheumatology [address] [place], [place] [id number] Ashlee Magallon MD [address] [place] [id number] Systemic lupus erythematosus, unspecified SLE type, unspecified organ involvement status (HCC) (Primary Dx); Encounter for long-term (current) use of medications Social History Tobacco Use Types Packs/Day Years [...] Sign Reading Time Taken Comments Blood Pressure 123/76 02/25/2019 11:11 AM HYDRO ELECTRIC STATION OPERATOR Pulse 64 02/25/2019 11:11 AM HYDRO ELECTRIC STATION OPERATOR Temperature - - Respiratory Rate - - Oxygen Saturation 100% 02/25/2019 11:11 AM HYDRO ELECTRIC STATION OPERATOR Inhaled Oxygen Concentration - - Weight 70.8 kg (156 lb) 02/25/2019 11:11 AM HYDRO ELECTRIC STATION OPERATOR Height 157.5 cm (5' 2 ) 02/25/2019 11:11 AM HYDRO ELECTRIC STATION OPERATOR Body Mass Index 28.53 02/25/2019 11:11 AM HYDRO ELECTRIC STATION OPERATOR documented in this encounter Patient Instructions * Patient Instructions* Angelique Abraham - 02/25/2019 11:39 AM HYDRO ELECTRIC STATION OPERATOR Complete labs today at [facility] on the 3rd floor. This will include a urinalysis. Resume taking Hydroxychloroquine 200 mg once daily. Continue taking Prednisone 15 mg daily. Contact the office in 3-4 days with an update. Follow up with Dr Magallon in 3 months. Thank you for choosing [facility] for your healthcare needs. If you have any questions, you may contact , Keena, at [phone], option 1 then option 1 again. O ELECTRIC STATION OPERATOR documented in this encounter Progress Notes * Ashlee Magallon MD - 02/25/2019 11:11 AM CST Images from the original note were not included. DIAGNOSES: (M32.9) Systemic lupus erythematosus, unspecified SLE type, unspecified organ involvement status (primary encounter diagnosis) Plan: CBC WITH DIFFERENTIAL, COMPREHENSIVE METABOLIC PANEL, ERYTHROCYTE SEDIMENTATION RATE, C-REACTIVE PROTEIN, COMPLEMENT C3 C4 PANEL, CK BLOOD, URINALYSIS W/MICROSCOPIC REFLEX TO CULTURE (Z79.899) Encounter for long-term (current) use of medications Plan: CBC WITH DIFFERENTIAL, COMPREHENSIVE METABOLIC PANEL, ERYTHROCYTE SEDIMENTATION RATE, C-REACTIVE PROTEIN, COMPLEMENT C3 C4 PANEL, CK BLOOD, URINALYSIS W/MICROSCOPIC REFLEX TO CULTURE SUBJECTIVE: Chief Complaint Patient presents with ??? Autoimmune Disease Pt seen urgently for c/o flare SP 01/29 At that time she was also seen urgently for flare with CP - then felt better by the appointment She called the exchange after hours on 02/10 - was told to increase prednisone to 30mg x 3 days then back down to 15mg for c/o flare pain - at SP - plan was to start HCQ (had tried this in the past w/o side effects but stated it didn't work after taking about 1 mo) - she had s/e (dizziness) after one dose so she stopped it - she c/o chest pain, leg pain and swelling - she c/o lumps in her chest wall - two weeks of these symptoms - wants to try aza again (s/e in past) Review of Systems: General: -fatigue, -fever, -wt loss/gain, daily functioning not limited HEENT: -dry eyes, -dry mouth, -eye redness, -eye pain, -oral/nasal ulcers, - nasal crusting, -ear infections, - sinus fullness CV: -chest pain Resp: -cough, -SOB GI: -abd pain, -constipation, -nausea, -vomiting, -diarrhea, -blood/mucus, - GERD/reflux symptoms : -urine changes, -dysuria, -hematuria MSK: see HPI Skin: -rash, -lesions, -hair loss, -nail changes, -Raynaud, -photosensitivity, -acrocyanosis Neuro: -SHELTON, -vision changes, -muscle weakness, -paresthesias Psych: -depression, -anxiety Current Outpatient Medications Medication Sig Dispense Refill ??? ALPRAZolam (XANAX) 0.25 MG tablet Take 0.25 mg by mouth 3 times daily as needed for Anxiety ??? azaTHIOprine (IMURAN) 50 MG tablet Take 1 tablet by mouth 2 times daily (Patient not taking: Reported on 02/25/2019) 60 tablet 2 ??? clomiPHENE (CLOMID) 50 MG tablet Take 1 tablet by mouth once daily Day 5 through Day 10 of menstrual cycle. 3 cycles worth of medication ordered. (Patient not taking: Reported on 02/25/2019) 15 tablet 0 ??? folic acid (FOLVITE) 1 MG tablet Take 1 tablet by mouth once daily 30 tablet 2 ??? hydroxychloroquine (PLAQUENIL) 200 MG tablet Take 1 tablet by mouth 2 times daily (Patient not taking: Reported on 02/25/2019) 60 tablet 2 ??? omeprazole (PRILOSEC) 20 MG capsule Take 20 mg by mouth daily before breakfast ??? predniSONE (DELTASONE) 10 MG tablet Take 1 tab in AM and 1/2 tb in PM 45 tablet 2 ??? valACYclovir (VALTREX) 1 GM tablet Take 1,000 mg by mouth every 12 hours ??? vitamin D, ergocalciferol, (DRISDOL) 1.25 MG (09102 UT) capsule Take 1 capsule by mouth every 7days 12 capsule 0 No current facility-administered medications for this visit. Objective: BP 123/76 (BP SITE: RIGHT ARM, BP POSITION: SITTING, BP CUFF SIZE: 12) Pulse 64 Ht 1.575 m (5' 2 ) Wt 70.8 kg (156 lb) SpO2 100% BMI 28.53 kg/m?? General: no distress, cooperative Skin: no rash or lesions, no color change or livedo reticularis, normal temperature & turgor HEENT: conjunctivae and sclerae clear, PERRLA, EOMI, external ear normal, no oral or nasal ulceration, mucus membranes moist Lymphatic no cervical or axillary LAD Chest/Lungs: lungs CTAB, no wheezes, rhonchi, or rales Heart: RRR, no murmur, no rub or gallop Abdomen; soft, non-tender, non-distended, no HSM Neurologic: grossly intact, alert, muscle strength 5/5 MSK exam including neck and back/spine: Back is symmetric, no curvature, normal ROM, no paraspinal tenderness, no SI tenderness Neck has normal ROM and is supple Peripheral joint exam: Some puffiness in hands Tender MCPs O/w nml RHEUM COY 02/25/2019 01/29/2019 10/24/2018 MHAQ 4 2 2.7 Pain 7.5 5.5 7 Global 5.5 4 7 Rapid 3 17 11.5 16.7 Sleep 5.5 4 2 GI 5 6 7.5 Fatigue 6.5 6.5 7.5 Recent Labs Component Name 01/15/19 1138 10/01/18204909/25/18 1103 WBC 4.4 3.9* 4.8 HGB 11.9 10.7* 11.6* PLTCOUNT 290 238 277 MCV 87 83.3 83.6 Recent Labs Component Name 01/15/19 1138 10/08/18 1034 10/01/182049 CREATININE 0.70 0.60 0.72 BUN 16 15 17 SODIUM 142 141 141 POTASSIUM 4.8 3.8 3.5 Recent Labs Component Name 01/15/19 11310/08/18 1034 10/01/182049 AST 39 18 16 ALT 21 22 23 ALKPHOS 44 45 42 TBIL 0.3 0.2 0.3 Recent Labs Component Name 01/15/198 10/08/18 1034 10/01/182049 CRP <1 9 0.80* Recent Labs Component Name 01/15/19113710/08/18 1034 10/01/182049 SEDRATE 16 18 11 ASSESSMENT & PLAN: 1. SLE - unable to wean steroids as pt does not tolerate HCQ nor Imuran (I am not totally convinced that her s/e are real however) - off leflunomide for about 1 mo - will d/w her MFM MD today, call placed - cont prednisone 15mg qd for now - try HCQ again 200mg qhs - if fails start azathioprine - again as I have told the patient multiple times, is not advisable until we have her on a steroid sparing agent to control her lupus Follow up in 3 months. Addendum: spoke with Dr Callejas (M) to touch base. We agree pt should be free of SLE flares x 6mos before trying to conceive, and should be off leflunomide x 3 mos (has been off x 1 mo at this time). All of the patient's questions and concerns were addressed. Ashlee Magallon MD Rheumatology [facility] [place], [place] Office phone: [phone] Orders Placed This Encounter ??? CBC WITH DIFFERENTIAL ??? COMPREHENSIVE METABOLIC PANEL ??? ERYTHROCYTE SEDIMENTATION RATE ??? C-REACTIVE PROTEIN ??? COMPLEMENT C3 C4 PANEL ??? CK BLOOD ??? URINALYSIS W/MICROSCOPIC REFLEX TO CULTURE ??? predniSONE (DELTASONE) 10 MG tablet Sig: Take 1 tab in AM and 1/2 tb in PM Dispense: 45 tablet Refill: 2 O ELECTRIC STATION OPERATOR documented in this encounter Miscellaneous Notes * Addendum Note - Samantha Lovett MA - 03/04/2019 11:17 AM CSTAddended by: SAMANTHA LOVETT on: 03/04/2019 11:17 AM Modules accepted: Orders O ELECTRIC STATION OPERATOR documented in this encounter Plan of Treatment Scheduled Orders Name Type Priority Associated Diagnoses Orde r Schedule URINALYSIS W/MICROSCOPIC REFLEX TO CULTURE Lab Routine Systemic lupus erythematosus, unspecified SLE type, unspecified organ involvement status (HCC) Encounter for long-term (current) use of medications Ordered: 03/04/2019 documented as of this encounter Procedures Procedure Name Priority Date/Time Associated Diagnosis Comments C-REACTIVE PROTEIN Routine 03/04/2019 3: 29 PM HYDRO ELECTRIC STATION OPERATOR Systemic lupus erythematosus, unspecified SLE type, unspecified organ involvement status (HCC) Encounter for long-term (current) use of medications ERYTHROCYTE SEDIMENTATION RATE Routine 03/04/2019 3:29 PM HYDRO ELECTRIC STATION OPERATOR Systemic lupus erythematosus, unspecified SLE type, unspecified organ involvement status (HCC) Encounter for long-term (current) use of medications CBC W AUTO DIFFERENTIAL Routine 03/04/2019 3:29 PM HYDRO ELECTRIC STATION OPERATOR Systemic lupus erythematosus, unspecified SLE type, unspecified organ involvement status (HCC) Encounter for long-term (current) use of medications COMPREHENSIVE METABOLIC PANEL Routine 03/04/2019 3:29 PM HYDRO ELECTRIC STATION OPERATOR Systemic lupus erythematosus, unspecified SLE type, unspecified organ involvement status (HCC) Encounter for long-term (current) use of medications CK BLOOD Routine 03/04/2019 3:29 PM HYDRO ELECTRIC STATION OPERATOR Systemic lupus erythematosus, unspecified SLE type, unspecified organ involvement status (HCC) Encounter for long-term (current) use of medications COMPLEMENT C3 C4 PANEL Routine 0 3:29 PM HYDRO ELECTRIC STATION OPERATOR Systemic lupus erythematosus, unspecified SLE type, unspecified organ involvement status (HCC) Encounter for long-term (current) use of medications documented in this encounter Results * ERYTHROCYTE SEDIMENTATION RATE (03/04/2019 3:29 PM HYDRO ELECTRIC STATION OPERATOR) Erythrocyte Sedimentation Rate Westergren 17 < OR = 20 mm/h [facility] Comment: Test Performed at: [facility] [address] [place], [place] ??[phone] JACQUIE BYERS DO,MPH Blood BLOOD SPECIMEN / Unknown 03/04/2019 3:29 PM HYDRO ELECTRIC STATION OPERATOR 03/04/2019 3:30 PM HYDRO ELECTRIC STATION OPERATOR Ashlee Magallon MD LAB - HEMATOLOGY ORD ERABLES Performing Organization Address [facility] Co de Phone Number [facility] [address] [place] [address] * C-REACTIVE PROTEIN (03/04/2019 3:29 PM HYDRO ELECTRIC STATION OPERATOR) C-Reactive Protein 2.2 <8.0 mg/L [facility] Comment: REPORT COMMENT: PATIENT UNABLE TO VOID; ADVISED TO RETURN FOR COLLECTION. Test Performed at: [facility] [address] [place], [place] ??[phone] JACQUIE BYERS DO,MPH Blood BLOOD SPECIMEN / Unknown 03/04/2019 3:29 PM HYDRO ELECTRIC STATION OPERATOR 03/04/2019 3:30 PM HYDRO ELECTRIC STATION OPERATOR Ashlee Magallon MD LAB - CHEMISTRY ORDE RABAURORA Performing Organization Address [facility] de Phone Number [facility] [address] [place] [address] * COMPREHENSIVE METABOLIC PANEL (03/04/2019 3:29 PM HYDRO ELECTRIC STATION OPERATOR) Glucose 90 65 - 99 mg/dL [facility] Comment: ? Fasting reference interval BUN 15 7 - 25 mg/dL [facility] Creatinine 0.64 0.50 - 1.10 mg/dL [facility] eGFR by MDRD 123 > OR = 60 mL/min/1. 73m2 [facility] eGFR by MDRD 143 > OR = 60 mL/min/1. 73m2 [facility] BUN/Creatinine Ratio NOT APPLICABLE 6 - 22 (calc) [facility] Sodium 139 135 - 146 mmol/L [facility] Potassium 3.9 3.5 - 5.3 mmol/L [facility] Chloride 102 98 - 110 mmol/L [facility] CO2 29 20 - 32 mmol/L [facility] Calcium 9.8 8.6 - 10.2 mg/dL [facility] Protein Total 7.2 6.1 - 8.1 g/dL [facility] Albumin 4.2 3.6 - 5.1 g/dL [facility] Globulin Total 3.0 1.9 - 3.7 g/dL (calc) [facility] Albumin/Globuli n Ratio 1.4 1.0 - 2.5 (calc) [facility] Bilirubin Total 0.4 0.2 - 1.2 mg/dL [facility] Alkaline Phosphatase 56 33 - 115 U/L [facility] AST 13 10 - 30 U/L [facility] ALT 22 6 - 29 U/L [facility] Comment: Test Performed at: [facility] [address] [place] [address] ??[phone] JACQUIE BYERS DO,MPH Blood BLOOD SPECIMEN / Unknown 03/04/2019 3:29 PM HYDRO ELECTRIC STATION OPERATOR 03/04/2019 3:30 PM HYDRO ELECTRIC STATION OPERATOR Ashlee Magallon MD LAB - CHEMISTRY GREGORY RIVERA Performing Organization Address [facility] Co de Phone Number [address] [address] * (ABNORMAL) COMPLEMENT C3 C4 PANEL (03/04/2019 3:29 PM HYDRO ELECTRIC STATION OPERATOR) Complement C3 96 83 - 193 mg/dL [facility] Complement C4 13(L) 15 - 57 mg/dL [facility] Comment: Test Performed at: [facility] [address] [place] [address] ??[phone] JACQUIE BYERS DO,MPH Blood BLOOD SPECIMEN / Unknown 03/04/2019 3:29 PM HYDRO ELECTRIC STATION OPERATOR 03/04/2019 3:30 PM HYDRO ELECTRIC STATION OPERATOR Ashlee Magallon MD LAB - CHEMISTRY ORDJose RIVERA Performing Organization Address [facility] Co de Phone Number [address] [address] * (ABNORMAL) CK BLOOD (03/04/2019 3:29 PM HYDRO ELECTRIC STATION OPERATOR) CK 16(L) 29 - 143 U/L [facility] Comment: Test Performed at: [facility] [address] [place] [address] ??[phone] JACQUIE BYERS DO,MPH Blood BLOOD SPECIMEN / Unknown 03/04/2019 3:29 PM HYDRO ELECTRIC STATION OPERATOR 03/04/2019 3:30 PM HYDRO ELECTRIC STATION OPERATOR Ashlee Magallon MD LAB - CHEMISTRY GREGORY RIVERA Performing Organization Address [facility] Co de Phone Number [facility] [address] [place] [address] * (ABNORMAL) CBC WITH DIFFERENTIAL (03/04/2019 3:29 PM HYDRO ELECTRIC STATION OPERATOR) White Blood Cell Count 5.4 3.8 - 10.8 Thousand/u L [facility] RBC 4.26 3.80 - 5.10 Million/uL [facility] Hemoglobin 12.1 11.7 - 15.5 g/dL [facility] Hematocrit 38.7 35.0 - 45.0 % [facility] MCV 90.8 80.0 - 100.0 fL [facility] MCH 28.4 27.0 - 33.0 pg [facility] MCHC 31.3(L) 32.0 - 36.0 g/dL [facility] RDW 13.9 11.0 - 15.0 % [facility] Platelet Count 325 140 - 400 Thousand/u L [facility] MPV 11.1 7.5 - 12.5 fL [facility] Neutrophil Absolute 4034 1500 - 7800 cells/uL [facility] Lymphocytes Absolute 940 850 - 3900 cells/uL [facility] Absolute Monocytes 405 200 - 950 cells/uL [facility] Eosinophils Absolute 11(L) 15 - 500 cells/uL [facility] Basophils Absolute 11 0 - 200 cells/uL [facility] Granulocytes % 74.7 % [facility] Lymphocytes % 17.4 % [facility] Monocytes % 7.5 % [facility] Eosinophils % 0.2 % [facility] Basophils % 0.2 % [facility] Comment: Test Performed at: [facility] [id number] [place] [address] ??[phone] JACQUIE BYERS DO,MPH Blood BLOOD SPECIMEN / Unknown 03/04/2019 3:29 PM HYDRO ELECTRIC STATION OPERATOR 03/04/2019 3:30 PM HYDRO ELECTRIC STATION OPERATOR Ashlee Magallon MD LAB - HEMATOLOGY MONSERRAT TOMAS Performing Organization Address [facility] Co de Phone Number [facility] [address] [place] [address] documented in this encounter Visit Diagnoses Diagnosis Systemic lupus erythematosus, unspecified SLE type, unspecified organ involvement status (HCC)- Primary Encounter for long-term (current) use of medications Encounter for long-term (current) use of other medications documented in this encounter Care Teams Ground Host/Hostess Relationship Specialty Start Date End Date Huseyin Dangelo MD PCP - General Family Medicine 08/22/17 06/18/19 documented as of this encounter
--- OUTSIDE RECORDS SUMMARY | 2024-02-24 19:39 | XMS_ITS | Encounter Summary ---
Author Organization [facility] Address [address] [address] Care Team Providers Care Language Arts Teacher Name Role Phone Sheldon Delgado MD Unavailable [phone] Gayla Barker [facility] Primary Care Provider + Reason for Visit * Reason Comments Systemic Lupus Erythematosis Scleroderma poss Follow-up Encounter Details Date Type Department Care Team (Late st Contact Info) Description 06/20/2019 11:30 AM CDT Video Visit [facility] - Rheumatology [address] [place] [id number] Ashlee Magallon MD [address] [place] [address] Other forms of systemic lupus erythematosus, unspecified organ involvement status (HCC) ; High risk medications (not anticoagulants) long-term use Social History Tobacco Use Types Packs/Day Years [...] Sign Reading Time Taken Comments Blood Pressure - - Pulse - - Temperature - - Respiratory Rate - - Oxygen Saturation - - Inhaled Oxygen Concentration - - Weight 70.8 kg (156 lb) 06/20/2019 11:29 AM CDT Height 157.5 cm (5' 2 ) 06/20/2019 11:29 AM CDT Body Mass Index 28.53 06/20/2019 11:29 AM CDT documented in this encounter Patient Instructions * Patient Instructions* Ashlee Magallon MD - 06/20/2019 12:18 PM CDT Decrease Prednisone to 12 1/2 mg daily. Increase Hydroxycholoquine to 300 mg everyday (1 1/2 tablets). After taking Imuran 25 mg for 30 days, increase to 50 mg daily. Complete labs in 2 weeks at [facility]. Labs have been faxed. Thank you for choosing an [facility] facility. If you have any questions you may contact Ailyn de souza, at [phone] option 1, then option 1 again,or through [employer]t. documented in this encounter Progress Notes * Ashlee Magallon MD - 06/20/2019 11:32 AM CDT Telemedicine Note Patient Verification & Telemedicine Based [...] verification and consent paragraph with the patient/surrogate. Today's visit was conducted virtually due to COVID-19 countermeasures. The patient has given verbalconsent to have today's visit conducted by this same means with treatment provided remotely. The patient verbally consents to the billing and collection practices of [facility]. Patient location: work This encounter was performed using: audio and video Total time spent on visit on date of encounter is: 20 minutes with 15 minutes spent in medical discussion Assessment & Plan Umer is a 29 year old female who has completed a telemedicine encounter regardin. 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 All aspects of patient's medical history were reviewed and updated as documented in Epic Subjective Chief Complaint Patient presents with ??? Systemic Lupus Erythematosis ??? Scleroderma poss ??? Follow-up Pt requested visit to discuss results and her progress. She is only tolerating 25mg of Imuran and states she feels dizzy with 50mg even if taken at bedtime, feels dizzy in bed and into next day. HCQ 200mg qd - states diarrhea with 400mg ( have not tried 300mg) She feels like the Imuran is already working but she also recently increased prednisone to 40mg x 3days, back down to 15mg now Her symptoms seem to fluctuate but she feels good today Past Medications: In past - refuses MMF, MTX Requested Benlysta in past but then wanted to get (recent miscarriage) Was on Leflunomide when presented to me, we stopped because she wanted to become A comprehensive 10 system ROS was reviewed. Pertinent positives and negatives are included in HPI or PMH. The remainder of the 10 system ROS was negative. Objective Physical Exam NAD AAOx3 Recent Labs Component Name 05/22/19 1226 03/04/19 1529 01/15/19 1138 SEDRATE 14 17 16 Recent Labs Component Name 05/22/19 1226 03/04/19 1529 01/15/19 1138 CRP 0.40 2.2 <1 Recent Labs Component Name 05/22/19 1226 03/04/19 1529 01/15/19 1138 AST 24 13 39 ALT 28 22 21 ALKPHOS 39* 56 44 TBIL 0.3 0.4 0.3 Recent Labs Component Name 05/22/19 1226 03/04/19 1529 01/15/19 1138 CREATININE 0.67 0.64 0.70 BUN 10 15 16 SODIUM 137 139 142 POTASSIUM 4.0 3.9 4.8 Recent Labs Component Name 05/22/19 1226 03/04/19 1529 01/15/19 1138 WBC 6.6 5.4 4.4 HGB 11.1* 12.1 11.9 PLTCOUNT 307 325 290 MCV 89.2 90.8 87 Labs done at [facility] proteinuria 30 mg/dL, urine blood + No RBCs/WBCs CMP - sl high glucose, creatinine 0.58, LFTs wnl, rest nml CBC wnl except lymphs 10.4 (up from 8.0 in april, improved in general compared to previous labs) chronic present prior to imuran CRP, ESR wnl C4 10 C3 87 (68 in september) Results for UMER ELDER ( ) as of 06/20/2019 11:33 Ref. Range 10/08/2018 10:34 10/08/2018 10:35 01/15/2019 11:38 03/04/2019 15:29 05/22/2019 12:26 Anti-dsDNA Quantitative Latest Ref Range: 0 - 9 IU/mL 68 (H) 31 (H) 84 (H) Results for UMER ELDER ( ) as of 06/20/2019 11:33 Ref. Range 10/08/2018 10:34 10/08/2018 10:35 01/15/2019 11:38 03/04/2019 15:29 05/22/2019 12:26 Complement C3 Latest [...] erythematosus, unspecified organ involvement status (HCC)- Primary High risk medications (not anticoagulants) long-term use Encounter for long-term (current) use of other medications documented in this encounter Care Teams Language Arts Teacher Relationship Specialty Start Date End Date Gayla Barker APRN-PROJECT ADMINISTRATOR PCP - General Nurse Practitioner 06/19/19 07/28/19 Sheldon Delgado MD Obstetrics and Gynecology 05/23/19 documented as of this encounter
--- OUTSIDE RECORDS SUMMARY | 2024-02-24 19:39 | XMS_ITS | Encounter Summary ---
Author Organization [facility] Address [address] [place] [address] Care Team Providers Care Sheriff'S Detective Name Role Phone Huseyin Dangelo MD Primary Care Provider [phone] Reason for Visit * Reason Comments Autoimmune Disease Encounter Details Date Type Department Care Team (Late st Contact Info) Description 01/29/2019 8:40 AM CHECKROOM CHIEF Office Visit [facility] Medical [facility] - Rheumatology [address] [place], [place] [id number] Ashlee Magallon MD [address] [place] [id number] Other forms of systemic lupus erythematosus, unspecified organ involvement status (HCC) (Primary Dx); Encounter for long-term (current) use of medications; High risk medications (not anticoagulants) long-term use; Irregular menstruation Social History Tobacco Use Types Packs/Day Years Used Date Smoking Tobacco: Former Cigarettes Smokeless Tobacco: Never Tobacco Cessation:Counseling Given: Yes Alcohol Use Standard Drinks/Week Comments No 0 [...] Sign Reading Time Taken Comments Blood Pressure 125/85 01/29/2019 8:57 AM CHECKROOM CHIEF Pulse 83 01/29/2019 8:57 AM CHECKROOM CHIEF Temperature 36.4 ??C (97.5 ??F) 01/29/2019 8:57 AM CS T Respiratory Rate - - Oxygen Saturation 99% 01/29/2019 8:57 AM CHECKROOM CHIEF Inhaled Oxygen Concentration - - Weight 66.1 kg (145 lb 12.8 oz) 01/29/2019 8:57 AM CHECKROOM CHIEF Height 157.5 cm (5' 2 ) 01/29/2019 8:57 AM CHECKROOM CHIEF Body Mass Index 26.67 01/29/2019 8:57 AM CHECKROOM CHIEF documented in this encounter Patient Instructions * Patient Instructions* Angelique Abraham - 01/29/2019 9:27 AM CHECKROOM CHIEF Complete a lab today at [facility] on the 3rd floor. Start taking Hydroxychloroquine 200 mg, take 1 tab daily for 14 days, then call the office with an update on how you are doing. If you are doing tolerating we will increase to 2 tabs daily. Follow up with Dr Magallon in 3 months; April 2019. Please contact the office to schedule. Thank you for choosing [facility] for your healthcare needs. If you have any questions, you may contact Angelique de souza, at [phone], option 1 then option 1 again. KROOM CHIEF documented in this encounter Progress Notes * Ashlee Magallon MD - 01/31/2019 2:49 PM CST Cardiolipin slightly abn - will d/w MFM when she sees them. Forward results to Ob please. KROOM CHIEF * Ashlee Magallon MD - 01/29/2019 8:53 AM CST Images from the original note were not included. DIAGNOSES: (M32.8) Other forms of systemic lupus erythematosus, unspecified organ involvement status (primary encounter diagnosis) Plan: CARDIOLIPIN ANTIBODY IGG/IGM PANEL, FSH + LH PANEL, ESTRADIOL (Z79.899) Encounter for long-term (current) use of medications Plan: FSH + LH PANEL, ESTRADIOL (Z79.899) High risk medications (not anticoagulants) long-term use Plan: FSH + LH PANEL, ESTRADIOL (N92.6) Irregular menstruation Plan: FSH + LH PANEL, ESTRADIOL SUBJECTIVE: Chief Complaint Patient presents with ??? Autoimmune Disease Pt seen urgently for c/o chest pain as she was concerned about pericarditis - her chest pain is nowgone, she was actually seen at [facility] ER 2 days ago and CXR negative, blood work ok per pt She feels good otherwise these days and states she feels better than she has in a while (several months). Currently taking Prednisone 10am and 5mg pm She feels worse on 10mg /d when she has tried to decrease the dose Is getting soon and will be getting insurance through her new She wishes to get in the next few months She has stopped the leflunomide about 3-4 weeks ago. States had tried HCQ in the past but it didn't work . Review of Dr Strickland's notes reveal she had only taken 200mg qd x 1 month before stopping it. Review of Systems: General: -fatigue, -fever, -wt [...] times daily (Patient not taking: Reported on 10/24/2018) 60 tablet 2 ??? hydroxychloroquine (PLAQUENIL) 200 MG tablet Take 1 tablet by mouth 2 times daily 60 tablet 2 ??? omeprazole (PRILOSEC) 20 MG capsule Take 20 mg by mouth daily before breakfast ??? predniSONE (DELTASONE) 5 MG tablet TAKE 2 TABLETS BY MOUTH EVERY DAY (Patient taking differently: Take 5 mg by mouth once ) 60 tablet 0 ??? predniSONE (DELTASONE) 5 MG tablet Take 10 mg by mouth once daily No current facility-administered medications for this visit. Objective: BP 125/85 (BP SITE: RIGHT ARM, BP POSITION: SITTING, BP CUFF SIZE: 11) Pulse 83 Temp 97.5 ??F (36.4 ??C) (Oral) Ht 1.575 m (5' 2 ) Wt 66.1 kg (145 lb 12.8 oz) SpO2 99% BMI 26.67 kg/m?? General: no distress, cooperative Skin: no [...] ROM and is supple Peripheral joint exam: Fullness in hands, across MCPs b/l, non tender Full ROM O/w nml RHEUM COY 01/29/2019 10/24/2018 10/08/2018 MHAQ 2 2.7 7 Pain 5.5 7 10 Global 4 7 10 Rapid 3 11.5 16.7 27 Sleep 4 2 7.5 GI 6 7.5 9.5 Fatigue 6.5 7.5 9.5 Recent Labs Component Name 01/15/19 1138 10/01/18204909/25/18 1103 WBC 4.4 3.9* 4.8 HGB 11.9 10.7* 11.6* PLTCOUNT 290 238 277 MCV 87 83.3 83.6 Recent Labs Component Name 01/15/19113710/08/18 1034 10/01/182049 CREATININE 0.70 0.60 0.72 BUN 16 15 17 SODIUM 142 141 141 POTASSIUM 4.8 3.8 3.5 Recent Labs Component Name 01/15/19113710/08/18 1034 10/01/182049 AST 39 18 16 ALT 21 22 23 ALKPHOS 44 45 42 TBIL 0.3 0.2 0.3 Recent Labs Component Name 01/15/19113710/08/18 1034 10/01/182049 CRP <1 9 0.80* Recent Labs Component Name 01/15/19113710/08/18 10310/01/182049 SEDRATE 16 18 11 Results for UMER ELDER ( ) as of 01/29/2019 08:53 Ref. Range 10/24/2018 11:34 10/24/2018 11:34 10/30/2018 09:15 01/15/2019 11:38 01/15/2019 11:38 Creatinine Urine Latest Ref Range: Not Estab. mg/dL 107.8 207.1 Protein Urine Latest Ref Range: Not Estab. mg/dL 27.9 41.2 Protein/Creatinine Ratio Latest Ref Range: 0 - 200 mg/g creat 259 (H) 199 Results for UMER ELDER ( ) as of 01/29/2019 08:53 Ref. Range 10/08/2018 10:35 10/14/2018 08:11 BARAK Unknown Positive (Abnormal) PCNA Pattern Unknown NOT NEEDED Centriole Pattern Unknown NOT NEEDED Midbody Pattern Unknown NOT NEEDED Nuclear Dot Pattern Unknown NOT NEEDED Nuclear Membrane Pattern Unknown NOT NEEDED Spindle Apparatus Pattern Unknown NOT NEEDED See below Unknown SEE COMMENT Antichromatin Antibodies Latest Ref Range: 0.0 - 0.9 AI >8.0 (H) Centromere B Antibody Latest Ref Range: 0.0 - 0.9 AI <0.2 Centromere Pattern Unknown NOT NEEDED Homogeneous Pattern Unknown >1:1280 (Abnormal) Nucleolar Pattern Unknown NOT NEEDED Speckled Pattern Unknown NOT NEEDED Anti-dsDNA Quantitative Latest Ref Range: 0 - 9 IU/mL 68 (H) Antiscleroderma-70 Antibody Latest Ref Range: 0.0 - 0.9 AI <0.2 Perez/[employer]ER Antibodies Latest Ref Range: 0.0 - 0.9 AI <0.2 Doris-1 Antibody Latest Ref Range: 0.0 - 0.9 AI <0.2 Antiribosomal P Antibody Latest Ref Range: 0.0 - 0.9 AI <0.2 TEXT[employer] TE[employer]ER Antibody Latest Ref Range: 0.0 - 0.9 AI 1.9 (H) Sjogren's Antibodies (SSA) Latest Ref Range: 0.0 - 0.9 AI <0.2 Sjogren's Antibodies (SSB) Latest Ref Range: 0.0 - 0.9 AI <0.2 Perez (PHUONG) Antibody Latest Ref Range: 0.0 - 0.9 AI <0.2 Complement C3 Latest Ref Range: 82 - 167 mg/dL 68 (L) Complement C4 Latest Ref Range: 14 - 44 mg/dL 10 (L) Results for UMER ELDER ( ) as of 01/29/2019 08:53 Ref. Range 10/08/2018 10:35 Cardiolipin Antibody IgG Latest Ref Range: 0 - 14 GPL U/mL 12 Cardiolipin Antibody IgM Latest Ref Range: 0 - 12 MPL U/mL 19 (H) Beta-2 Glycoprotein I Antibody IgM Latest Ref Range: 0 - 32 GPI IgM units <9 Beta-2 Glycoprotein I Antibody IgG Latest Ref Range: 0 - 20 GPI IgG units <9 PTT-LA Latest Ref Range: 0.0 - 51.9 sec 31.2 dRVVT Latest Ref Range: 0.0 - 47.0 sec 31.1 ANCILLARY STUDIES: 10/30/2018 ??3:41 PM - Results Interface, Radiology In Narrative & Impression Transthoracic Echocardiogram 2D, M-mode, Doppler, and Color Doppler Patient: UMER ELDER MR number: [id number] Height: 62 in Weight: 139.7 lb BSA: 1.64 m?? Study date: 30-Oct-2018 : 1990 Age: 28 years Gender: Female Race: 2 Allergies: METHYLPREDNISOLONE Reading Physician: Lloyd Mcarthur MD Social Worker Psychiatric: Najma Sol, MIRTA, RDMS, RVT Ordering Physician: Ashlee Magallon MD [...] Pericardium: The pericardium was normal in appearance. ASSESSMENT & PLAN: 1. SLE (BARAK, anti chromatin, anti- dsDNA, anti-[employer] TE[employer]ER, low complements) - recent labs less than 1 mo ago were reassuring with improved dsDNA level and complements, normal inflammatory markers and no cytopenias; improved pr/cr ratio - echo 3 mos ago normal pericardium when she c/o chest pain - has not done PFTs that were ordered in October - pt has seen nephrology for proteinuria and they did not think a biopsy was required - pt mentions wanting to become in the next 2 months which I have advised her against until lupus is better controlled and she is off prednisone or at least on a lower dose, also needs to beoff leflunomide for a full 3 months (has been less than 1 month at this point) - see MFM/Ob for guidance - start HCQ 200mg qd x 2 weeks then increase to BID (safe in ) - OCT eye exam w/i next 3 mo then Yearly - recheck anticardiolipin due to low pos level in past x2 Follow up in 3 months. All of the patient's questions and concerns were addressed. 30 min face to face over 50% counselingabout lupus and medications. Ashlee Magallon MD Rheumatology [facility] [place], [place] Office phone: [phone] Orders Placed This Encounter ??? CARDIOLIPIN ANTIBODY IGG/IGM PANEL ??? FSH + LH PANEL ??? ESTRADIOL ??? hydroxychloroquine (PLAQUENIL) 200 MG tablet Sig: Take 1 tablet by mouth 2 times daily Dispense: 60 tablet Refill: 2 KROOM CHIEF documented in this encounter Plan of Treatment Scheduled Orders Name Type Priority Associated Diagnoses Orde r Schedule ESTRADIOL Lab Routine Other forms of systemic lupus erythematosus, unspecified organ involvement status (HCC) Encounter for long-term (current) use of medications High risk medications (not anticoagulants) long-term use Irregular menstruation Ordered: 01/29/2019 documented as of this encounter Procedures Procedure Name Priority Date/Time Associated Diagnosis Comments CARDIOLIPIN ANTIBODY IGG/IGM PANEL Routine 01/29/2019 12:32 PM CHECKROOM CHIEF Other forms of systemic lupus erythematosus, unspecified organ involvement status (HCC) FSH + LH PANEL Routine 01/29/2019 12:32 PM CHECKROOM CHIEF Other forms of systemic lupus erythematosus, unspecified organ involvement status (HCC) Encounter for long-term (current) use of medications High risk medications (not anticoagulants) long-term use Irregular menstruation documented in this encounter Results * FSH + LH PANEL (01/29/2019 12:32 PM CHECKROOM CHIEF) LH 8.8 mIU/mL [facility] ACCOUNT BILL Comment: [...] BLOOD SPECIMEN / Unknown 01/29/2019 12:32 PM CHECKROOM CHIEF 01/29/2019 Narrative Resulting Agency Comment Lab Testing performed at: [facility] [address] [place] [address] ??[place] [id number] Ashlee Magallon MD LAB - CHEMISTRY GREGORY RIVERA [facility] ACCOUNT BILL [address] [place] [address] * (ABNORMAL) CARDIOLIPIN ANTIBODY IGG/IGM PANEL (01/29/2019 12:32 PM CHECKROOM CHIEF) Cardiolipin Antibody IgG <9 0 - 14 [...] BLOOD SPECIMEN / Unknown 01/29/2019 12:32 PM CHECKROOM CHIEF 01/29/2019 Narrative Resulting Agency Comment Lab Testing performed at: [facility] [address] ??[facility] [id number] Ashlee Magallon MD LAB - SEROLOGY ORDER ANAHI [facility] ACCOUNT BILL [address] [place] [address] documented in this encounter Visit Diagnoses Diagnosis Other forms of systemic lupus erythematosus, unspecified organ involvement status (HCC)- Primary Encounter for long-term (current) use of medications Encounter for long-term (current) use of other medications High risk medications (not anticoagulants) long-term use Encounter for long-term (current) use of other medications Irregular menstruation Irregular menstrual cycle documented in this encounter Care Teams Sheriff'S Detective Relationship Specialty Start Date End Date Huseyin Dangelo MD PCP - General Family Medicine 08/22/17 06/18/19 documented as of this encounter
--- OUTSIDE RECORDS SUMMARY | 2024-02-24 19:39 | XMS_ITS | Encounter Summary ---
Author Organization [facility] Address [address] [place] [address] Care Team Providers Care Imaging Services Director Name Role Phone Huseyin Dangelo MD Primary Care Provider [phone] Encounter Details Date Type Department Care Team (Late st Contact Info) Description 01/10/2019 Orders Only [facility] - Rheumatology [address] [facility] [address] [place], [place] [id number] Ashlee Magallon MD [address] [facility] [address] [place] [address] High risk medications (not anticoagulants) long-term use ; Other forms of systemic lupus erythematosus, unspecified [...] on file documented as of this encounter Progress Notes * Ashlee Magallon MD - 01/16/2019 10:58 AM CST Results are actually pretty normal (WBC normal, urine protein wnl, kidney function ok, inflammationmarkers normal, complements have improved). The wbcs are normal - however she is on prednisone and currently has infectious symptoms so they may be falsely high . I want her to stay off arava for now. Continue prednisone but decrease to 10mg a day. Is she still having infectious symptoms? She needs to make an appointment with me please to be seen w/i next few weeks. MW KE COORDINATOR documented in this encounter Miscellaneous Notes * Addendum Note - Angelique Abraham - 01/10/2019 4:09 PM CSTAddended by: ANGELIQUE ABRAHAM on: 01/10/2019 04:09 PM Modules accepted: Orders KE COORDINATOR documented in this encounter Plan of Treatment Not on file documented as of this encounter Procedures Procedure Name Priority Date/Time Associated Diagnosis Comments URINALYSIS MICROSCOPIC ONLY REFLEXED Routine 01/15/2019 11:38 AM STROKE COORDINATOR Other forms of systemic lupus erythematosus, unspecified organ involvement status (HCC) Encounter for long-term (current) use of medications Proteinuria, unspecified type Dysuria High risk medications (not anticoagulants) long-term use URINALYSIS W/MICROSCOPIC REFLEX TO CULTURE Routine 01/15/2019 11:38 AM STROKE COORDINATOR Other forms of systemic lupus erythematosus, unspecified organ involvement status (HCC) Encounter for long-term (current) use of medications Proteinuria, unspecified type Dysuria High risk medications (not anticoagulants) long-term use C-REACTIVE PROTEIN Routine 01/15/2019 11 :38 AM STROKE COORDINATOR Other forms of systemic lupus erythematosus, unspecified organ involvement status (HCC) Encounter for long-term (current) use of medications Proteinuria, unspecified type Dysuria High risk medications (not anticoagulants) long-term use DNA ANTIBODY DOUBLE STRANDED Routine 01/15/2019 11:38 AM STROKE COORDINATOR Other forms of systemic lupus erythematosus, unspecified organ involvement status (HCC) Encounter for long-term (current) use of medications Proteinuria, unspecified type Dysuria High risk medications (not anticoagulants) long-term use ERYTHROCYTE SEDIMENTATION RATE Routine 01/15/2019 11:38 AM STROKE COORDINATOR Other forms of systemic lupus erythematosus, unspecified organ involvement status (HCC) Encounter for long-term (current) use of medications Proteinuria, unspecified type Dysuria High risk medications (not anticoagulants) long-term use CBC W AUTO DIFFERENTIAL Routine 01/15/2019 11:38 AM STROKE COORDINATOR Other forms of systemic lupus erythematosus, unspecified organ involvement status (HCC) Encounter for long-term (current) use of medications Proteinuria, unspecified type Dysuria High risk medications (not anticoagulants) long-term use COMPREHENSIVE METABOLIC PANEL Routine 01/15/2019 11:38 AM STROKE COORDINATOR Other forms of systemic lupus erythematosus, unspecified organ involvement status (HCC) Encounter for long-term (current) use of medications Proteinuria, unspecified type Dysuria High risk medications (not anticoagulants) long-term use PROTEIN CREATININE RATIO URINE RANDOM PNL Routine 01/15/2019 11:38 AM STROKE COORDINATOR Other forms of systemic lupus erythematosus, unspecified organ involvement status (HCC) Encounter for long-term (current) use of medications Proteinuria, unspecified type Dysuria High risk medications (not anticoagulants) long-term use COMPLEMENT C3 C4 PANEL Routine 9 11:38 AM STROKE COORDINATOR Other forms of systemic lupus erythematosus, unspecified organ involvement status (HCC) Encounter for long-term (current) use of medications Proteinuria, unspecified type Dysuria High risk medications (not anticoagulants) long-term use documented in this encounter Results * (ABNORMAL) URINALYSIS MICROSCOPIC ONLY REFLEXED (01/15/2019 11:38 AM STROKE COORDINATOR) WBC UA 0-5 0 - 5 /hpf [facility] ACCOUNT BILL RBC UA 0-2 0 - 2 /hpf [facility] ACCOUNT BILL Epithelial Cells (non renal) 0-10 0 - 10 /hpf [facility] ACCOUNT BILL Epithelial Cells (renal) NOT NEEDED [facility] ACCOUNT BILL Comment:Ancillary determined the test is not needed. Casts ua Present(A) None seen /lpf [facility] ACCOUNT BILL Casts UA Hyaline casts N/A [facility] ACCOUNT BILL Crystals UA Present(A) N/A [facility] ACCOUNT BILL Crystals UA Calcium Oxalate N/A [facility] ACCOUNT BILL Mucus UA Present Not Estab. [facility] ACCOUNT BILL Bacteria UA None seen None seen/Few [facility] ACCOUNT BILL Yeast UA NOT NEEDED [facility] ACCOUNT BILL Comment:Ancillary determined the test is not needed. Trichomonas UA NOT NEEDED [facility] ACCOUNT BILL Comment:Ancillary determined the test is not needed. Comment Urine NOT NEEDED [facility] ACCOUNT BILL Comment:Ancillary determined the test is not needed. 01/15/2019 11:3 8 AM STROKE COORDINATOR 01/15/2019 Narrative Resulting Agency Comment Lab Testing performed at: [facility] [place] [address] [facility] [id number] Ashlee Magallon MD LAB - URINALYSIS ORD ERABLES [facility] ACCOUNT BILL [address] [place] [address] * PROTEIN CREATININE RATIO URINE RANDOM PNL (01/15/2019 11:38 AM STROKE COORDINATOR) Creatinine Urine 207.1 Not Estab. mg/dL [facility] ACCOUNT BILL Protein Urine 41.2 Not Estab. mg/dL [facility] ACCOUNT BILL Protein/Creatin ine Ratio 199 0 - 200 mg/g creat [facility] ACCOUNT BILL Urine URINE SPECIMEN OBTAINED BY CLEAN CATCH PROCEDURE / Unknown 01/15/2019 11:38 AM STROKE COORDINATOR 01/15/2019 Narrative Resulting Agency Comment Lab Testing performed at: [facility] [place] [address] ??[facility] hospital [id number] Ashlee Magallon MD LAB - URINE CHEMISTR Y ORDERABLES Performing Organization Address City/[facility]/ZIP Co de Phone Number [facility] ACCOUNT BILL [address] [place] [address] * (ABNORMAL) URINALYSIS W/MICROSCOPIC REFLEX TO CULTURE (01/15/2019 11:38 AM STROKE COORDINATOR) Specific Tavares UA 1.026 1.005 - 1.030 [facility] ACCOUNT BILL pH UA 5.5 5.0 - 7.5 [facility] ACCOUNT BILL Color UA Yellow Yellow [facility] ACCOUNT BILL Appearance Clear Clear [facility] ACCOUNT BILL Leukocyte UA Negative Negative [facility] ACCOUNT BILL Protein UA 1+(A) Negative/Tra ce [facility] ACCOUNT BILL Glucose UA Negative Negative [facility] ACCOUNT BILL Ketone UA Negative Negative [facility] ACCOUNT BILL Occult Blood Urine Negative Negative [facility] ACCOUNT BILL Bilirubin UA Negative Negative [facility] ACCOUNT BILL Urobilinogen 0.2 0.2 - 1.0 mg/dL [facility] ACCOUNT BILL Nitrite UA Negative Negative [facility] ACCOUNT BILL Microscopic Examination Urine See below: [facility] ACCOUNT BILL Comment:Microscopic was yusef cated and was performed. Microscopic Examination Urine NOT NEEDED [facility] ACCOUNT BILL Comment:Ancillary determined the test is not needed. Urinalysis Reflex [facility] ACCOUNT BILL Comment:This specimen will n ot reflex to a Urine Culture. Urine URINE SPECIMEN OBTAINED BY CLEAN CATCH PROCEDURE / Unknown 01/15/2019 11:38 AM STROKE COORDINATOR 01/15/2019 Narrative Resulting Agency Comment [facility] [address] [facility] [id number] Ashlee Magallon MD LAB - URINALYSIS ORD ERABLES Performing Organization Address [facility] de Phone Number [facility] ACCOUNT BILL [address] [place] [address] * (ABNORMAL) COMPLEMENT C3 C4 PANEL (01/15/2019 11:38 AM STROKE COORDINATOR) Pathologist [facility] Complement C3 81(L) 82 - 167 mg/dL [facility] ACCOUNT BILL Complement C4 12(L) 14 - 44 mg/dL [facility] ACCOUNT BILL Blood BLOOD SPECIMEN / Unknown 01/15/2019 11:38 AM STROKE COORDINATOR 01/15/2019 Narrative Resulting Agency Comment [facility]: [facility] [address] ??[facility] hospital [phone] Ashlee Magallon MD LAB - CHEMISTRY ORDE RABLES Performing Organization Address [facility] Co de Phone Number [facility] ACCOUNT BILL [address] [place] [address] * (ABNORMAL) DNA ANTIBODY DOUBLE STRANDED (01/15/2019 11:38 AM STROKE COORDINATOR) Pathologist [facility] Anti-dsDNA Quantitative 31(H) 0 - 9 IU/mL [facility] ACCOUNT BILL Comment: ?Negative ?<5 ?Equivocal ??5 - 9 ?Positive ?>9 Blood BLOOD SPECIMEN / Unknown 01/15/2019 11:38 AM STROKE COORDINATOR 01/15/2019 Narrative Resulting Agency Comment Lab Testing performed at: [facility] [address] ??[place] [id number] Ashlee Magallon MD LAB - HEMATOLOGY ORD ERABLES [facility] ACCOUNT BILL [address] [place] [address] * C-REACTIVE PROTEIN (01/15/2019 11:38 AM STROKE COORDINATOR) C-Reactive Protein <1 0 - 10 mg/L [facility] ACCOUNT BILL Blood BLOOD SPECIMEN / Unknown 01/15/2019 11:38 AM STROKE COORDINATOR 01/15/2019 Narrative Resulting Agency Comment Lab Testing performed at: [facility] [address] ??[place] [phone] Ashlee Magallon MD LAB - CHEMISTRY GREGORY RIVERA [facility] ACCOUNT BILL [address] [place] [address] * ERYTHROCYTE SEDIMENTATION RATE (01/15/2019 11:38 AM STROKE COORDINATOR) Erythrocyte Sedimentation Rate Westergren 16 0 - 32 mm/hr [facility] ACCOUNT BILL Blood BLOOD SPECIMEN / Unknown 01/15/2019 11:38 AM STROKE COORDINATOR 01/15/2019 Narrative Resulting Agency Comment Lab Testing performed at: [facility] [place] ??[facility] [phone] Ashlee Magallon MD LAB - HEMATOLOGY ORD [facility] ACCOUNT BILL [address] [place] [address] * COMPREHENSIVE METABOLIC PANEL (01/15/2019 11:38 AM STROKE COORDINATOR) Glucose 96 65 - 99 mg/dL [facility] ACCOUNT BILL Comment:Specimen received he molyzed. Clinical correlation indicated. BUN 16 6 - 20 mg/dL [facility] ACCOUNT BILL Creatinine 0.70 0.57 - 1.00 mg/dL [facility] ACCOUNT BILL eGFR by MDRD 120 >59 mL/min/1.7 3 [facility] ACCOUNT BILL eGFR by MDRD 138 >59 mL/min/1.7 3 [facility] ACCOUNT BILL BUN/Creatinine Ratio 23 9 - 23 [facility] ACCOUNT BILL Sodium 142 134 - 144 mmol/L [facility] ACCOUNT BILL Potassium 4.8 3.5 - 5.2 mmol/L [facility] ACCOUNT BILL Comment:Specimen received he molyzed. Clinical correlation indicated. Chloride 102 96 - 106 mmol/L [facility] ACCOUNT BILL CO2 21 20 - 29 mmol/L [facility] ACCOUNT BILL Calcium 9.4 8.7 - 10.2 mg/dL [facility] ACCOUNT BILL Protein Total 7.1 6.0 - 8.5 g/dL [facility] ACCOUNT BILL Albumin 4.3 3.5 - 5.5 g/dL [facility] ACCOUNT BILL Globulin Total 2.8 1.5 - 4.5 g/dL [facility] ACCOUNT BILL Albumin/Globulin Ratio 1.5 1.2 - 2.2 [facility] ACCOUNT BILL Bilirubin Total 0.3 0.0 - 1.2 mg/dL [facility] ACCOUNT BILL Alkaline Phosphatase 44 39 - 117 IU/L [facility] ACCOUNT BILL AST 39 0 - 40 IU/L [facility] ACCOUNT BILL ALT 21 0 - 32 IU/L [facility] ACCOUNT BILL Blood BLOOD SPECIMEN / Unknown 01/15/2019 11:38 AM STROKE COORDINATOR 01/15/2019 Narrative Resulting Agency Comment Lab Testing performed at: [facility] ??[facility] [phone] Ashlee Magallon MD LAB - CHEMISTRY GREGORY RIVERA [facility] Organization Address City/State/ZIP Co de Phone Number [facility] ACCOUNT BILL [address] [place] [address] * (ABNORMAL) CBC WITH DIFFERENTIAL (01/15/2019 11:38 AM STROKE COORDINATOR) WBC 4.4 3.4 - 10.8 x10E3/uL [facility] ACCOUNT BILL RBC 4.12 3.77 - 5.28 x10E6/uL [facility] ACCOUNT BILL Hemoglobin 11.9 11.1 - 15.9 g/dL [facility] ACCOUNT BILL Hematocrit 35.9 34.0 - 46.6 % [facility] ACCOUNT BILL MCV 87 79 - 97 fL [facility] ACCOUNT BILL MCH 28.9 26.6 - 33.0 pg [facility] ACCOUNT BILL MCHC 33.1 31.5 - 35.7 g/dL [facility] ACCOUNT BILL RDW 14.9 12.3 - 15.4 % [facility] ACCOUNT BILL Platelet Count 290 150 - 450 x10E3/uL [facility] ACCOUNT BILL Granulocytes % 82 Not Estab. % [facility] ACCOUNT BILL Lymphocytes % 9 Not Estab. % [facility] ACCOUNT BILL Monocytes % 8 Not Estab. % [facility] ACCOUNT BILL Eosinophils % 1 Not Estab. % [facility] ACCOUNT BILL Basophils % 0 Not Estab. % [facility] ACCOUNT BILL Immature Cells NOT NEEDED [facility] ACCOUNT BILL Comment:Ancillary determined the test is not needed. Granulocytes Absolute 3.6 1.4 - 7.0 x10E3/uL [facility] ACCOUNT BILL Lymphocytes Absolute 0.4(L) 0.7 - 3.1 x10E3/uL [facility] ACCOUNT BILL Monocytes Absolute 0.3 0.1 - 0.9 x10E3/uL [facility] ACCOUNT BILL Eosinophils Absolute 0.0 0.0 - 0.4 x10E3/uL [facility] ACCOUNT BILL Basophils Absolute 0.0 0.0 - 0.2 x10E3/uL [facility] ACCOUNT BILL Immature Granulocytes 0 Not Estab. % [facility] ACCOUNT BILL Immature Granulocytes Absolute 0.0 0.0 - 0.1 x10E3/uL [facility] ACCOUNT BILL nRBC NOT NEEDED [facility] ACCOUNT BILL Comment:Ancillary determined the test is not needed. Comment Hematology NOT NEEDED [facility] ACCOUNT BILL Comment:Ancillary determined the test is not needed. Blood BLOOD SPECIMEN / Unknown 01/15/2019 11:38 AM STROKE COORDINATOR 01/15/2019 Narrative Resulting Agency Comment Lab Testing performed at: [facility] [place] [address] ??[facility] hospital [id number] Ashlee Magallon MD LAB - HEMATOLOGY ORD ERABLES [facility] ACCOUNT BILL [address] [place] [address] documented in this encounter Visit Diagnoses Diagnosis High risk medications (not anticoagulants) long-term use- Primary Encounter for long-term (current) use of other medications Other forms of systemic lupus erythematosus, unspecified organ involvement status (HCC) Encounter for long-term (current) use of medications Encounter for long-term (current) use of other medications Proteinuria, unspecified type Dysuria documented in this encounter Care Teams Imaging Services Director Relationship Specialty Start Date End Date Huseyin Dangelo MD PCP - General Family Medicine 08/22/17 06/18/19 documented as of this encounter
--- OUTSIDE RECORDS SUMMARY | 2024-02-24 19:39 | XMS_ITS | Encounter Summary ---
Author Organization [facility] Address [address] [place] [address] Care Team Providers Care Power Engineer Name Role Phone Huseyin Dangelo MD Primary Care Provider [phone] Reason for Visit * Reason Onset Date Comments MEDICATION REFILL 03/31/2019 Encounter Details Date Type Department Care Team (Late st Contact Info) Description 03/31/2019 Refill [facility] - Rheumatology [address] [place] [id number] Ashlee Magallon MD [address] [place] [id number] MEDICATION REFILL Social History Tobacco Use Types [...] Telephone Encounter - Samantha Caputo MA - 03/31/2019 2:26 PM DISTRICT DIRECTOR NON-BIOLOGIC REFILL REQUEST Last OV: 02/25/19 Next Appointment: 04/08/2019 Last Fill: HCQ, Prednisone 03/27/19, Omeprazole 03/06/19, FA 02/11/19 Recent Labs Component Name 03/04/19 1529 01/15/19 1138 10/01/18 2050 WBC 5.4 4.4 3.9* HGB 12.1 11.9 10.7* PLTCOUNT 325 290 238 MCV 90.8 87 83.3 Recent Labs Component Name 03/04/19 1529 01/15/19 1138 10/08/18 1034 CREATININE 0.64 0.70 0.60 BUN 15 16 15 SODIUM 139 142 141 POTASSIUM 3.9 4.8 3.8 Recent Labs Component Name 03/04/19 1529 01/15/19 1138 10/08/18 1034 EGFR 123 120 126 EGFRAFR 143 138 145 Recent Labs Component Name 03/04/19 1529 01/15/19 1138 10/08/18 1034 AST 13 39 18 ALT 22 21 22 ALKPHOS 56 44 45 TBIL 0.4 0.3 0.2 Last ESR: Recent Labs Component Name 03/04/19 1529 01/15/19 1138 10/08/18 1034 SEDRATE 17 16 18 Last 3 CRP: Recent Labs Component Name 03/04/19 1529 01/15/19 1138 10/08/18 1034 CRP 2.2 <1 9 Last Eye exam (if refill for hydroxychloroquine): unknown RICT DIRECTOR documented in this encounter Plan of Treatment Not on file documented as of this encounter Visit Diagnoses Not on filedocumented in this encounter Care Teams Power Engineer Relationship Specialty Start Date End Date Huseyin Dangelo MD PCP - General Family Medicine 08/22/17 06/18/19 documented as of this encounter
--- OUTSIDE RECORDS SUMMARY | 2024-02-24 19:39 | XMS_ITS | Encounter Summary ---
Author Organization [facility] Address [address] [place] [address] Care Team Providers Care Manager Reimbursement Name Role Phone Huseyin Dangelo MD Primary Care Provider [phone] Reason for Visit * Reason Onset Date Comments Vaginal Problem 03/06/2019 yeast infection Encounter Details Date Type Department Care Team (Late st Contact Info) Description 03/06/2019 Telephone [facility] - VENEER TRIMMER [facility] [facility] [place] [address] Andrey Birch MD [address] [facility] [address] [place] [address] Vaginal Problem (yeast infection) Social History Tobacco Use Types Packs/Day Years [...] Telephone Encounter - Andrey Birch MD - 03/06/2019 4:11 PM CST Diflucan 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 Magallon increased her Prednisone and Rx'd hydroxychlorquine, she believes she has a yeast infection. She denies vaginal itching and odor, however she is experiencing a thick, white chunky discharge. She would like to know if she can get an Rx sent to her pharmacy. Pharmacy in chart has been update. UTATIONAL SCIENCES PROFESSOR documented in this encounter Plan of Treatment Not on file documented as of this encounter Visit Diagnoses Not on filedocumented in this encounter Care Teams Manager Reimbursement Relationship Specialty Start Date End Date Huseyin Dangelo MD PCP - General Family Medicine 08/22/17 06/18/19 documented as of this encounter
--- OUTSIDE RECORDS SUMMARY | 2024-02-24 19:39 | XMS_ITS | Encounter Summary ---
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) use of systemic steroids Procedures EMG WITH NERVE CONDUCTION STUDY Ashlee Magallon MD [address] [facility] [address] [place] [address] [place] [address] Referral ID Status Reason Start Date Expiration Date Visits Re quested Visits Authorized [id number] Closed 03/07/2019 09/03/2019 1 1 COURSE ASSISTANT Reason for Visit * Neurology (Routine) - Closed Specialty Diagnoses / Procedures Referred By Jud freeman Referred To Contact Neuroscience Diagnoses Muscle weakness (generalized) Numbness and tingling of left upper and lower extremity snf (current) use of systemic steroids Procedures EMG WITH NERVE CONDUCTION STUDY Ashlee Magallon MD [address] [facility] [address] [place] [address] [facility] [address] [facility] [address] [place] [address] Referral ID Status Reason Start Date Expiration Date Visits Re quested Visits Authorized [id number] Closed 03/07/2019 09/03/2019 1 1 Encounter Details Date Type Department Care Team (Latest Contact Info) Description 03/10/2019 12:49 PM GOLF COURSE ASSISTANT - 03/10/2019 11:59 PM GOLF COURSE ASSISTANT Hospital Encounter [facility] EEG [facility]EES [address] [place] [address] Ashlee Magallon MD [address] [place] [address] Kenn Gamboa MD [address] [place] [address] Discharge Disposition: Home or Self Care Social [...] on file documented as of this encounter Medications at Time of Discharge Medication Sig Dispensed Refills Start Date End Date ALPRAZolam (XANAX) 0.25 MG tablet Take 0.25 mg by mouth 3 times daily as needed for Anxiety valACYclovir (VALTREX) 1 GM tablet Take 1 (one) tablet by mouth every 12 hours azaTHIOprine (IMURAN) 50 MG tabletIndications:Othe r forms of systemic lupus erythematosus, unspecified organ involvement status (HCC) Take 1 tablet by mouth 2 times daily 60 tablet 2 10/15/2018 06/12/2019 clomiPHENE (CLOMID) 50 MG tabletIndications:Irre gular periods Take 1 tablet by mouth once daily Day 5 through Day 10 of menstrual cycle. 3 cycles worth of medication ordered. 15 tablet 03/06/2019 03/31/2019 folic acid (FOLVITE) 1 MG tablet Take 1 tablet by mouth once daily 30 tablet 2 02/11/2019 03/31/2019 hydroxychloroquine (PLAQUENIL) 200 MG tablet Take 1 tablet by mouth 2 times daily 60 tablet 2 01/29/2019 03/27/2019 omeprazole (PRILOSEC) 20 MG capsule TAKE 1 CAPSULE BY MOUTH EVERY DAY 30 capsule 2 03/06/2019 03/31/2019 predniSONE (DELTASONE) 10 MG tablet Take 3 tabs daily x3 days 9 tablet 03/05/2019 03/27/2019 predniSONE (DELTASONE) 10 MG tablet Take 1 tab in AM and 1/2 tb in PM 45 tablet 2 02/25/2019 03/27/2019 vitamin D, ergocalciferol, (DRISDOL) 1.25 MG (44496 UT) capsule Take 1 capsule by mouth every 7 days 12 capsule 02/11/2019 05/22/2019 documented as of this encounter Progress Notes * Ashlee Magallon MD - 03/10/2019 11:59 PM CST Normal (pt already aware) COURSE ASSISTANT documented in this encounter Plan of Treatment Not on file documented as of this encounter Procedures Procedure Name Priority Date/Time Associated Diagnosis Comments EMG WITH NERVE CONDUCTION STUDY Routine 03/10/2019 Muscle weakness (generalized) Numbness and tingling of left upper and lower extremity snf (current) use of systemic steroids documented in this encounter Results * EMG WITH NERVE CONDUCTION STUDY (03/10/2019) Ashlee Magallon MD NEUROLOGY ORDERABLES SS RESULT SCAN documented in this encounter Visit Diagnoses Diagnosis Muscle weakness (generalized) Numbness and tingling of left upper and lower extremity snf (current) use of systemic steroids documented in this encounter Care Teams Engineer Relationship Specialty Start Date End Date Huseyin Dangelo MD PCP - General Family Medicine 08/22/17 06/18/19 documented as of this encounter
--- OUTSIDE RECORDS SUMMARY | 2024-02-24 19:39 | XMS_ITS | Encounter Summary ---
Author Organization [facility] Address [address] [place] [address] Care Team Providers Care Manager Front Office Name Role Phone Huseyin Dangelo MD Primary Care Provider [phone] Reason for Visit * Reason Onset Date Comments Results 10/31/2018 Encounter Details Date Type Department Care Team (Late st Contact Info) Description 10/31/2018 Telephone [facility] - Rheumatology [address] [facility] [address] [place] [address] Ashlee Magallon MD [address] [facility] [address] [place] [phone] Results Social History Tobacco Use Types Packs/Day [...] * Telephone Encounter - Angelique Abraham - 11/14/2018 5:03 PM CDT [employer] message sent. * Telephone Encounter - Ashlee Magallon MD - 11/14/2018 2:55 PM CDT Try to go down to 10mg a day x 2 weeks, then 7.5mg x 2 weeks then we can see how she is doing. If we can get the Imuran on board she can get off the prednisone. MW * Telephone Encounter - Angelique Abraham - 11/14/2018 2:23 PM CDT Patient is on 15 mg prednisone daily. * Telephone Encounter - Ashlee Magallon MD - 11/14/2018 2:05 PM CDT How much prednisone is she on? Continue omeprazole for now. We have to wait and see what the biopsy shows before we know how to change the medications. Continue azathioprine 25mg qhs with labs after taking this for two weeks. * Telephone Encounter - Angelique Abraham - 11/14/2018 11:37 AM CDT Spoke with patient and she states I saw the strategic debriefing officer the other day and they will be doing a kidney biopsy on 11/25/18. Do you feel this is a good idea? I am just so scared as I have been in a flare for the past year and am in severe pain if I try to wean the prednisone and I want to get off theprednisone so bad. I am gaining so much weight; my face looks like a blow fish and I am constantly h ungry and nothing makes me full. I feel at this point the Leflunomide isn't even doing anything. Tramaine has been out of town so I have been home alone. He will be back this weekend and I will be re-starting the Azathioprine at 1/2 tablet. I didn't want to start it because I heard that it can make your red blood cells drop and I was worried something might happen and I would be home alone. Also, I am on Omeprazole because I'm on prednisone. Should I stop the Omeprazole as I have heard it'sbad for your kidneys. I am prescribed Xanax 0.25 mg TID and I only take it once daily but lately I have been increasing it because my anxiety is so bad and I am just scared and worried about everything. Is there anything else I can do or take? I really don't want to be on Prednisone anymore. Please advise. * Telephone Encounter - Angelique Abraham - 11/14/2018 10:23 AM CDT LMOVM requesting a returned call from patient. * Telephone Encounter - Jimena Sequeira - 11/14/2018 8:58 AM CDT Patient called back and wanted to speak with Angelique or Dr. Magallon - she would like to speak to them regarding her medication she is taking. I asked for further information and she stated that they have been going back and forth and she would just like to speak with them. * Telephone Encounter - Angelique Abraham - 10/31/2018 4:19 PM CDT Spoke with patient providing the recommendations given by Dr. Magallon. Patient verbalized understanding and states Yes, I was reduced down to 50 mg. She was instructed to reduce down to 25 mg daily and see if that will help along with taking at night. She verbalized understanding and states to be honest, I never want to try MTX. I have heard awful things about the medication and am scared to to try it. It just isn't an option for me. * Telephone Encounter - Ashlee Magallon MD - 10/31/2018 3:46 PM CDT Take Imuran at night and see if that helps. Is she taking 25mg or 50mg? If 50mg, try 25mg instead. If 25mg stay at that. If she can't tolerate Imuran then we need to try methotrexate (I believe she has not had this before but was not willing to take for fear of potential s/e). MW * Telephone Encounter - Angelique Abraham - 10/31/2018 2:29 PM CDT Spoke with patient providing the echo results. She verbalized understanding and states I have beentrying the Azathioprine and it just isn't agreeing with me so I stopped it again. Is it ok to just stop this medication? I just don't want to feel bad on my trip. Patient was asked what symptoms sheis experiencing with the Azathioprine and her response was I am really nauseas and my face gets senia lly hot and flush. I really do want to get off the Prednisone as well but anytime I go down to even5 mg I am in a lot of pain. I have been on 10-15 mg daily for a year now and I know its not good. Itake 1 prednisone in the AM with my omeprazole and a couple of hours later I take 2 more prednisoneand the leflunomide. When I first started on the leflunomide it made me really sick to my stomach as well. I am not sure if taking the 2 medications together is what is causing it or what. Can I takethe Azathioprine at night before bed and see if this helps me with the nausea? Also, just this weekI have been retaining a lot of water and I feel like my entire body is swollen. Last week I was on my cycle and I didn't even feel this way which is weird. As there anything else I can go on before trying to go off the prednisone? Please advise. * Telephone Encounter - Ashlee Magallon MD - 10/31/2018 11:35 AM CDT Echocardiogram is perfectly normal. MW * Telephone Encounter - Keena Denny MA - 10/31/2018 11:19 AM CDT Please advise * Telephone Encounter - Giana Matthews - 10/31/2018 11:15 AM CDT Patient called wanting her results of her 2D echo NAHOMY. She is going out of town this afternoon at 2:30 and she would like to have the results prior to that to ease her mind. documented in this encounter Plan of Treatment Not on file documented as of this encounter Visit Diagnoses Not on filedocumented in this encounter Care Teams Manager Front Office Relationship Specialty Start Date End Date Huseyin Dangelo MD PCP - General Family Medicine 08/22/17 06/18/19 documented as of this encounter
--- OUTSIDE RECORDS SUMMARY | 2024-02-24 19:39 | XMS_ITS | Encounter Summary ---
Author Organization [facility] Address [address] [facility] [place] [address] Care Team Providers Care Signal Tester Name Role Phone Huseyin Dangelo MD Primary Care Provider [phone] Encounter Details Date Type Department Care Team (Latest Contact Info) Description 05/20/2019 Travel Social History Tobacco Use Types Packs/Day [...] on filedocumented in this encounter Care Teams Signal Tester Relationship Specialty Start Date End Date Huseyin Dangelo MD PCP - General Family Medicine 08/22/17 06/18/19 documented as of this encounter
--- OUTSIDE RECORDS SUMMARY | 2024-02-24 19:39 | XMS_ITS | Encounter Summary ---
Author Organization [facility] Address [address] [place] [address] Care Team Providers Care It Security Architect Name Role Phone Huseyin Dangelo MD Primary Care Provider [phone] Reason for Visit * Reason Comments Refill Request Encounter Details Date Type Department Care Team (Late st Contact Info) Description 01/07/2019 Refill [facility] - Rheumatology [address] [place] [address] Ashlee Magallon MD [address] [place] [phone] Refill Request Social History Tobacco Use Types [...] encounter Miscellaneous Notes * Telephone Encounter - Keena Denny MA - 01/07/2019 2:39 PM ASSOCIATE FACULTY NON-BIOLOGIC REFILL REQUEST Last OV: 10/21/18 Next Appointment: 01/09/2019 Last Fill: 12/13/18 Recent Labs Component Name 10/01/180 09/25/18 1103 08/22/18 1121 WBC 3.9* 4.8 7.0 HGB 10.7* 11.6* 10.8* PLTCOUNT 238 277 333 MCV 83.3 83.6 81.2 Recent Labs Component Name 08/103310/01/18204909/25/18 1103 08/22/18 1121 CREATININE 0.60 0.72 0.8 0.72 BUN 15 17 20 11 SODIUM 141 141 - 140 POTASSIUM 3.8 3.5 3.6 4.0 Recent Labs Component Name 10/08/184 10/01/18204909/25/18 1103 08/22/18 1121 EGFR 126 >60 >60 >60 EGFRAFR 145 >60 - >60 Recent Labs Component Name 10/08/18103310/01/18204909/25/18 1103 08/22/18 1121 AST 18 16 16 15 ALT 22 23 19 12* ALKPHOS 45 42 47 43 TBIL 0.2 0.3 - 0.4 Last ESR: Recent Labs Component Name 10/08/18103310/01/18204908/22/18 1121 SEDRATE 18 11 9 Last 3 CRP: Recent Labs Component Name 10/08/18103310/01/18204909/25/18 1103 CRP 9 0.80* <0.5 CIATE FACULTY documented in this encounter Plan of Treatment Not on file documented as of this encounter Visit Diagnoses Not on filedocumented in this encounter Care Teams It Security Architect Relationship Specialty Start Date End Date Huseyin Dangelo MD PCP - General Family Medicine 08/22/17 06/18/19 documented as of this encounter
--- OUTSIDE RECORDS SUMMARY | 2024-02-24 19:39 | XMS_ITS | Encounter Summary ---
Author Organization [facility] Address [address] [place] [address] Care Team Providers Care Popcorn Machine Operator Name Role Phone Huseyin Dangelo MD Primary Care Provider [phone] Reason for Visit * Reason Onset Date Comments Question 03/10/2019 Encounter Details Date Type Department Care Team (Late st Contact Info) Description 03/10/2019 Telephone [facility] - Rheumatology [address] [place] [id number] Ashlee Magallon MD [address] [place] [phone] Question Social History Tobacco Use Types Packs/Day [...] Telephone Encounter - Angelique Abraham - 03/11/2019 4:12 PM CST Patient was sent a mychart message and Neuro was mentioned in the message. VE FIXER * Telephone Encounter - Ashlee Magallon MD - 03/11/2019 11:34 AM CST We will let neurology decide on what tests are appropriate - I believe MFM referred due to her report of seizures when she saw them. VE FIXER * Telephone Encounter - Angelique Abraham - 03/11/2019 10:50 AM CST Patient has not seen Neuro yet. She is scheduled to see Dr. Granger on 04/30/2019. VE FIXER * Telephone Encounter - Ashlee Magallon MD - 03/11/2019 8:40 AM CST I do not see any notes from neurology - please find out who the neurologist is. And usually we would not do it this way. VE FIXER * Telephone Encounter - Angelique Abraham - 03/10/2019 2:15 PM CST Please advise. VE FIXER * Telephone Encounter - Anthony Martel - 03/10/2019 9:13 AM CST The patient called, she is to have her NCS today, she scheduled for April with neurology. Due to the delay in the appointment they asked if Dr Magallon would order an MRI and CT of her brain and she thinks maybe her spine so its done prior to her being seen? She stated notes are in Epic for Dr Magallon to review. Please advise VE FIXER documented in this encounter Plan of Treatment Not on file documented as of this encounter Visit Diagnoses Not on filedocumented in this encounter Care Teams Popcorn Machine Operator Relationship Specialty Start Date End Date Huseyin Dangelo MD PCP - General Family Medicine 08/22/17 06/18/19 documented as of this encounter
--- OUTSIDE RECORDS SUMMARY | 2024-02-24 19:39 | XMS_ITS | Encounter Summary ---
Author Organization [facility] Address [address] [facility] [place] [address] Care Team Providers Care Contact Center Team Lead Name Role Phone Huseyin Dangelo MD Primary Care Provider [phone] Encounter Details Date Type Department Care Team (Late st Contact Info) Description 02/04/2019 Orders Only [facility] - TAXICAB DRIVER [address] [place] [address], [address] [place] [address] Andrey Birch MD [facility] [address] [place] [address] Seizure disorder (HCC) ; Other forms of systemic lupus erythematosus, unspecified organ involvement status (HCC); Irregular periods Social History Tobacco Use Types Packs/Day Years [...] as of this encounter Progress Notes * Samantha Monk - 02/04/2019 1:03 PM CST LMOR regarding referrel. Pt to contact our office with further questions. R TRAINING MANAGER documented in this encounter Plan of Treatment Not on file documented as of this encounter Visit Diagnoses Diagnosis Seizure disorder (HCC)- Primary Unspecified epilepsy without mention of intractable epilepsy Other forms of systemic lupus erythematosus, unspecified organ involvement status (HCC) Irregular periods Irregular menstrual cycle documented in this encounter Care Teams Contact Center Team Lead Relationship Specialty Start Date End Date Huseyin Dangelo MD PCP - General Family Medicine 08/22/17 06/18/19 documented as of this encounter
--- OUTSIDE RECORDS SUMMARY | 2024-02-24 19:39 | XMS_ITS | Encounter Summary ---
Author Organization [facility] Address [address] [place] [address] Care Team Providers Care Building Surveyor Name Role Phone Huseyin Dangelo MD Primary Care Provider [phone] Encounter Details Date Type Department Care Team (Late st Contact Info) Description 11/15/2018 Orders Only [facility] - Rheumatology [address] [facility] [address] [facility] [address] [address] [place], [place] [id number] Ashlee Magallon MD [address] [facility] [address] [place] [address] Other forms of systemic lupus erythematosus, unspecified [...] Dysuria documented in this encounter Care Teams Building Surveyor Relationship Specialty Start Date End Date Huseyin Dangelo MD PCP - General Family Medicine 08/22/17 06/18/19 documented as of this encounter
--- OUTSIDE RECORDS SUMMARY | 2024-02-24 19:39 | XMS_ITS | Encounter Summary ---
Author Organization [facility] Address [address] [place] [address] Care Team Providers Care Global Process Owner Name Role Phone Huseyin Dangelo MD Primary Care Provider [phone] Reason for Visit * Reason Onset Date Comments Question 11/25/2018 Encounter Details Date Type Department Care Team (Late st Contact Info) Description 11/25/2018 Telephone [facility] - Rheumatology [address] [place], [place] [phone] Ashlee Magallon MD [address] [facility] [address] [place] [phone] Question Social History Tobacco Use Types Packs/Day [...] * Telephone Encounter - Angelique Abraham - 11/26/2018 2:06 PM CDT [employer] message sent. * Telephone Encounter - Ashlee Magallon MD - 11/26/2018 12:23 PM CDT This is a very complex issue and no I would not give the ok for that at this time. I will need to talk to her Ob physician, and is this even a plan yet that is definitely in place? Has her Ob said they want to start treatment? The lupus needs to be under control before she starts any fertility treatments or tries to get , as uncontrolled lupus is more dangerous for the than the medications. I will need to talk to her in more detail in person at the next visit about all of this. MW * Telephone Encounter - Angelique Abraham - 11/25/2018 9:54 AM CDT Please advise. * Telephone Encounter - Jimena Sequeira - 11/25/2018 9:16 AM CDT Patient wants to know if Dr. Magallon would be okay with her starting fertility drugs on Sunday when she sees her OB; patient stated she's worried about her medications making her infertile and possibly being able to carry a to full term. Her and her finance are talking about having children and they want to make sure its not going to affect patient in adverse ways. documented in this encounter Plan of Treatment Not on file documented as of this encounter Visit Diagnoses Not on filedocumented in this encounter Care Teams Global Process Owner Relationship Specialty Start Date End Date Huseyin Dangelo MD PCP - General Family Medicine 08/22/17 06/18/19 documented as of this encounter
--- OUTSIDE RECORDS SUMMARY | 2024-02-24 19:39 | XMS_ITS | Encounter Summary ---
Author Organization [facility] Address [address] [facility] [place] [address] Care Team Providers Care Foot Piece Assembler Name Role Phone Huseyin Dangelo MD Primary Care Provider [phone] Reason for Visit * Reason Onset Date Comments MEDICATION REFILL 03/31/2019 Encounter Details Date Type Department Care Team (Late st Contact Info) Description 03/31/2019 Refill [facility] - REFINERY OPERATOR VISBREAKING [facility], [address] [place] [address] Andrey Birch MD [address] [facility] [address] [place] [address] MEDICATION REFILL Social History Tobacco [...] Telephone Encounter - Andrey Birch MD - 03/31/2019 10:47 AM CST ordered CY AND PLANNING MANAGER * Telephone Encounter - Leti Sauer MA - 03/31/2019 9:44 AM POLICY AND PLANNING MANAGER Medication Refill Protocol Requested Medication: Requested Prescriptions Pending Prescriptions Disp Refills ??? clomiPHENE (CLOMID) 50 MG tablet 15 tablet 0 Sig: Take 1 tablet by mouth once daily Day 5 through Day 10 of menstrual cycle. 3 cycles worth of medication ordered. Last Office Visit: 01/29/2019 Next Office Visit: Visit date not found Allergies Reviewed: Yes CY AND PLANNING MANAGER documented in this encounter Plan of Treatment Not on file documented as of this encounter Visit Diagnoses Diagnosis Irregular periods Irregular menstrual cycle documented in this encounter Care Teams Foot Piece Assembler Relationship Specialty Start Date End Date Huseyin Dangelo MD PCP - General Family Medicine 08/22/17 06/18/19 documented as of this encounter
--- OUTSIDE RECORDS SUMMARY | 2024-02-24 19:39 | XMS_ITS | Encounter Summary ---
Author Organization [facility] Address [address] [facility] [place] [address] Care Team Providers Care Stacker Operator Name Role Phone Huseyin Dangelo MD Primary Care Provider [phone] Reason for Referral * Cardiac (Routine) - Closed Specialty Diagnoses / Procedures Referred By Contac t Referred To Contact Cardiology Diagnoses SOB (shortness of breath) Other forms of systemic lupus erythematosus, unspecified organ involvement status (HCC) Procedures ECHOCARDIOGRAM 2D WITH DOPPLER Ashlee Magallon MD [address] [place] [phone] [facility] [address] [id number] Referral ID Status Reason Start Date Expiration Date Visits Re quested Visits Authorized [id number] Closed 10/29/2018 04/27/2019 1 1 Encounter Details Date Type Department Care Team (Latest Contact Info) Description 10/30/2018 8:50 AM CDT - 10/30/2018 11:59 PM CDT Hospital Encounter [facility] [address] [address] Ashlee Magallon MD [address] [place] [address] Discharge Disposition: Home or Self Care Social [...] 3 times daily as needed for Anxiety azaTHIOprine (IMURAN) 50 MG tabletIndications:Other forms of systemic lupus erythematosus, unspecified organ involvement status (HCC) Take 1 tablet by mouth 2 times daily 60 tablet 2 10/15/2018 06/12/2019 leflunomide (ARAVA) 10 MG tablet Take 10 mg by mouth once daily 01/29/2019 omeprazole (PRILOSEC) 20 MG capsule Take 20 mg by mouth daily before breakfast 03/06/2019 predniSONE (DELTASONE) 5 MG tablet Take 4 tabs daily for 7 days, then decrease by one tab every 7 days until reaching 10 mg as your baseline dose. 49 tablet 10/21/2018 11/17/2018 predniSONE (DELTASONE) 5 MG tablet Take 15 mg by mouth once daily 02/25/2019 documented as of this encounter Progress Notes * Najma Sol RDCS - 10/30/2018 10:01 AM CDT Echo completed. documented in this encounter Plan of Treatment Not on file documented as of this encounter Procedures Procedure Name Priority Date/Time Associated Diagnosis Comments ECHOCARDIOGRAM 2D WITH DOPPLER Routine 10/30/2018 9:15 AM CDT SOB (shortness of breath) Other forms of systemic lupus erythematosus, unspecified organ involvement status (HCC) documented in this encounter Results * ECHOCARDIOGRAM 2D WITH DOPPLER (10/30/2018 9:15 AM CDT) 10/30/2018 9:15 AM CDT Narrative [facility] - 10/30/2018 3:41 PM CDT Transthoracic Echocardiogram 2D, M-mode, Doppler, and Color Doppler Patient: UMER ELDER MR number: [id number] Height: 62 in Weight: 139.7 lb BSA: 1.64 m?? Study date: 30-Oct-2018 : 1990 Age: 28 years Gender: Female Race: 2 Allergies: METHYLPREDNISOLONE Reading Physician: ??Lloyd Mcarthur MD Field Operations Supervisor: ??Najma Sol, RDCS, RDMS, RVT Ordering Physician: [...] Color Doppler Patient: UMER ELDER MR number: [id number] Height: 62 in Weight: 139.7 lb BSA: 1.64 m?? Study date: 30-Oct-2018 : 1990 Age: 28 years Gender: Female Race: 2 Allergies: METHYLPREDNISOLONE Reading Physician: Lloyd Mcarthur MD Field Operations Supervisor: Najma Sol, MIRTA, RDMS, RVT Ordering Physician: [...] 30-Oct-2018 15:40:34 Ashlee Magallon MD ECHO ORDERABLES [facility] [address] [place] [address] documented in this encounter Visit Diagnoses Diagnosis SOB (shortness of breath) Shortness of breath Other forms of systemic lupus erythematosus, unspecified organ involvement status (HCC) documented in this encounter Care Teams Stacker Operator Relationship Specialty Start Date End Date Huseyin Dangelo MD PCP - General Family Medicine 08/22/17 06/18/19 documented as of this encounter
--- OUTSIDE RECORDS SUMMARY | 2024-02-24 19:39 | XMS_ITS | Encounter Summary ---
Author Organization [facility] Address [address] [place] [address] Care Team Providers Care Crime Data Specialist Name Role Phone Sheldon Delgado MD Unavailable [phone] Huseyin Dangelo MD Primary Care Provider [phone] Reason for Visit * Reason Comments Seizure 15sec witnessed seiz ure at work, EMS states coworker states it was a full body seizure, hz of seizure but does not take anything for them, A&Ox4 upon arrival Encounter Details Date Type Department Care Team (Late st Contact Info) Description 08/21/2019 3:38 PM CDT - 08/21/2019 6:53 PM CDT Emergency ER at [address] [address] Dewey Samano, DO Need updated address Seizure-like activity (HCC); Seizure (HCC) Discharge Disposition: Home or Self Care Social [...] Sign Reading Time Taken Comments Blood Pressure 141/103 08/21/2019 5:15 PM CDT Pulse 90 08/21/2019 5:15 PM CDT Temperature 36.7 ??C (98.1 ??F) 08/21/2019 3:41 PM CD T Respiratory Rate 25 08/21/2019 5:15 PM CDT Oxygen Saturation 99% 08/21/2019 5:12 PM CDT Inhaled Oxygen Concentration - - Weight 70.3 kg (155 lb) 08/21/2019 3:41 PM CDT Height 160 cm (5' 3 ) 08/21/2019 3:41 PM CDT Body Mass Index 27.46 08/21/2019 3:41 PM CDT documented in this encounter Discharge Instructions * Discharge Instructions* Dewey Samano DO - 08/21/2019 6:24 PM CDT Please follow up with a neurologist for an EEG and Seizure evaluation, you likely need to be started on a medication like keppra. Call your local emergency number (911 in the [place]) or have someone else call for any of the following: Your seizure lasts longer than 5 minutes. You have a second seizure that happens within 24 hours of your first. You have trouble breathing after a seizure. You cannot be woken after your seizure. You have more than 1 seizure before you are fully awake or aware. * Attachments The following attachments cannot be sent through Care Everywhere. * New-Onset Seizure in Adults (AfterCare(R) Instructions(ER/ED)) (Mongolian) documented in this encounter Medications at Time [...] by mouth every 12 hours albuterol HFA (PROVENTIL;VENTOLIN;KS OAIR) 108 (90 Base) MCG/ACT inhaler 04/28/2019 [...] 06/16/2020 vitamin D, ergocalciferol, (DRISDOL) 1.25 MG (94164 UT) capsule Take 1 capsule by mouth every 7 days 12 capsule 06/21/2019 06/16/2020 documented as of this encounter ED Notes * Dewey Samano, - 08/21/2019 6:53 PM CDT Carito Rausch [id number] [facility] History Chief Complaint Patient presents with ??? Seizure 15sec witnessed seizure at work, EMS states coworker states it was a full body seizure, hz of seizure but does not take anything for them, A&Ox4 upon arrival 9:07 PM Caritojewell Rausch, a 29 year old female with a past medical history that includes--lupus, hypertension, fibromyalgia, anxiety--presents to the ER c/o seizure-like activity at work. Patient states she was feeling fine, then suddenly started feeling anxious, screen for her boss, and then had un controllable shaking and loss of consciousness. The patient denies any bowel or bladder incontinence, no oral lacerations. There are no corroborating witnesses to state whether not the patient postictal confusion state. The patient seems to be able to recall being lower down on to the chairs at work. Patient denies any drug use the presenting symptoms. She is on chronic prednisone for lupus, as we ll as Alprazolam for her anxiety but denies any seizure medications. The patient reports que she was prescribed Keppra and recommended to see a neurologist but never did so because she was scared about side effects. She states she had several episodes like this with aalways seem to be related to stress. PCP: Huseyin Dangelo MD Past Medical History: Diagnosis Date ??? Anemia [...] file Gets together: Not on file Attends latter-day service: Not on file Active member of [...] Systems Review of Systems Constitutional: Negative for chills and fever. HENT: Negative for congestion and ear pain. Eyes: Negative for blurred vision and pain. Respiratory: Negative for cough and shortness of breath. Cardiovascular: Negative for chest pain and palpitations. Gastrointestinal: Negative for abdominal pain, diarrhea and vomiting. Genitourinary: Negative for dysuria and hematuria. Musculoskeletal: Negative for falls and myalgias. Skin: Negative for itching and rash. Neurological: Positive for seizures. Negative for sensory change and headaches. Endo/Heme/Allergies: Does not bruise/bleed easily. Psychiatric/Behavioral: Negative for depression and substance abuse. The patient is nervous/anxious. Physical Exam BP (!) 141/103 Pulse 90 Temp 98.1 ??F (36.7 ??C) (Oral) Resp 25 Ht 1.6 m (5' 3 ) Wt 70.3 kg (155 lb) LMP 04/14/2019 SpO2 99% BMI 27.46 kg/m?? Physical Exam Vitals signs and nursing note reviewed. Constitutional: Appearance: She is well-developed. HENT: Head: Normocephalic and atraumatic. Eyes: Conjunctiva/sclera: Conjunctivae normal. Neck: Musculoskeletal: Normal range of motion and neck supple. Cardiovascular: Rate and Rhythm: Regular rhythm. Heart sounds: Normal heart sounds. Pulmonary: Effort: Pulmonary effort is normal. Breath sounds: Normal breath sounds. Abdominal: Palpations: Abdomen is soft. Tenderness: There is no abdominal tenderness. Musculoskeletal: Normal range of motion. General: No deformity. Skin: General: Skin is warm and dry. Neurological: General: No focal deficit present. Mental Status: She is alert and oriented to person, place, and time. Mental status is at baseline. Sensory: Sensory deficit present. Motor: No weakness. Coordination: Coordination normal. Gait: Gait normal. Psychiatric: Behavior: Behavior normal. Medications Current Outpatient Medications Medication Sig [...] ??? vitamin D, ergocalciferol, (DRISDOL) 1.25 MG (01541 UT) capsule Take 1 capsule by mouth every 7days 12 capsule 0 Procedures Procedures Lab/SPO2 Interpretation Hospital Encounter on 08/21/19 CBC W AUTO DIFFERENTIAL Result Value Ref Range WBC 9.9 4.4 - 10.7 x10E9/L WBC Corrected RBC 4.19 3.80 - 5.20 x10E12/L Hemoglobin 11.8 (L) 12.0 - 15.6 gm/dL Hematocrit 37.1 35.9 - 45.5 % MCV 88.5 80.7 - 98.3 fl MCH 28.2 26.7 - 34.0 pg MCHC 31.8 30.8 - 35.9 gm/dL Platelet Count 381 153 - 416 x10E9/L RDW-CV 13.7 12.1 - 14.9 % MPV 9.4 9.4 - 12.9 fl Neutrophils % 84.7 (H) 44.0 - 73.0 % Lymphocytes % 10.2 (L) 20.0 - 43.0 % Monocytes % 4.4 (L) 5.0 - 13.0 % Eosinophils % 0.2 0.0 - 6.0 % Basophils % 0.1 0.0 - 2.0 % Immature Granulocytes 0.4 0 - 1 % Neutrophil Absolute 8.36 (H) 2.01 - 7.14 x10E9/L Lymphocytes Absolute 1.01 (L) 1.07 - 3.94 x10E9/L Monocytes Absolute 0.43 0.26 - 1.07 x10E9/L Eosinophils Absolute 0.02 0 - 0.47 x10E9/L Basophils Absolute 0.01 0 - 0.08 x10E9/L Immature Granulocytes Absolute 0.04 0.00 - 0.06 x10E9/L nRBC Auto 0 /100 WBC COMPREHENSIVE METABOLIC PANEL Result Value Ref Range Glucose 96 70 - 105 mg/dL Sodium 140 136 - 145 mmol/L Potassium 3.8 3.5 - 5.1 mmol/L Chloride 104 98 - 107 mmol/L CO2 25 23 - 31 mmol/L Calcium 9.6 8.4 - 10.4 mg/dL Anion Gap 11 8 - 16 mmol/L BUN 13 7 - 18.7 mg/dL Creatinine 0.75 0.57 - 1.11 mg/dL Alkaline Phosphatase 53 40 - 150 U/L ALT 15 0 - 61 U/L AST 14 5 - 34 U/L Protein Total 7.6 6.4 - 8.3 gm/dL Albumin 4.3 3.5 - 5.2 gm/dL Bilirubin Total 0.4 0.2 - 1.0 mg/dL eGFR by MDRD >60 >60 mL/min/1.73m2 eGFR by MDRD >60 >60 mL/min/1.73m2 ALCOHOL ETHYL BLOOD Result Value Ref Range Ethanol <10.0 <10 mg/dL Ethanol Calculated <0.010 <=0.100 gm/dL LACTIC ACID BLOOD Result Value Ref Range Lactic Acid 0.90 0.5 - 2.2 mmol/L PROLACTIN Result Value Ref Range Prolactin 32.97 (H) 5.18 - 26.53 ng/mL DRUG SCREEN TOX URINE PANEL Result Value Ref Range Amphetamines Screen Urine Not detected Not detected Barbiturates Screen Urine Not detected Not detected Benzodiazepines Screen Urine Detected (Abnormal) Not detected Cannabinoids Screen Urine Not detected Not detected Cocaine Screen Urine Not detected Not detected Fentanyl Urine Detected (Abnormal) Not detected Methadone Screen Urine Not detected Not detected Opiate Screen Urine Not detected Not detected Phencyclidine Screen Urine Not detected Not detected HCG URINE QUALITATIVE Result Value Ref Range hCG Qualitative Urine Negative Negative URINALYSIS REFLEX MICROSCOPIC REFLEX CULTURE Result Value Ref Range Color UA Yellow Straw, Yellow Clarity UA Cloudy (Abnormal) Clear Glucose UA Negative Negative Bilirubin UA Negative Negative Ketone UA Negative Negative Specific [place] UA 1.021 1.005 - 1.030 Blood UA Negative Negative pH UA 6.0 5.0 - 8.0 pH Protein UA 2+ (Abnormal) Negative Urobilinogen UA Negative Negative mg/dL Nitrite UA Negative Negative Leukocyte UA 1+ (Abnormal) Negative Urine Microscopy Urine microscopy to follow Reflex Status Culture to follow URINE MICROSCOPIC ONLY REFLEX TO CULTURE Result Value Ref Range Reflex Status Culture to follow RBC UA 51-100 (Abnormal) None Seen, 0-2, 3-5 # /hpf WBC UA 6-10 (Abnormal) None Seen, 0-5 # /hpf Bacteria UA 2+ (Abnormal) None Seen Squamous Epithelial Cells >20 (Abnormal) None Seen, 0-2, 3-5 /hpf Mucus UA 3+ /LPF Budding Yeast Many (Abnormal) None seen /hpf CT ANGIO BRAIN AND NECK Final Result STUDY: CTA OF THE HEAD AND NECK CLINICAL INFORMATION: Seizure at work. Convulsions. COMPARISON: CT of the head performed immediately prior. TECHNIQUE: Thin section CT angiography of the cervical vessels and [place] was performed using a multislice [...] ([place]O), middle (MCA) and posterior cerebral arteries (ECONOMETRICS PROFESSOR). There is no evidence for intracranial aneurysm or cerebrovascular occlusion. IMPRESSION No evidence of cervical or cerebrovascular occlusion, hemodynamically significant stenosis, dissection, or aneurysm formation. *Reading Radiologist: Maki Wheeler on 08/21/2019 at 6:[address] HEAD NON CONTRAST - intracranial hemorrhage Final Result CT Brain Without Contrast Indication: Seizure. Within [...] Bon Nuñez on 08/21/2019 at 5:[address] scan did not reveal any bleeding from cavernous malformation, no large vessel occlusions. Patient in no seizure-like activity here. The patient's history is concerning for psychogenic nonepilepticseizures given the stress and lack of complete loss of consciousness. U tox, alcohol level, sodium,all negative for alternative etiology of seizure-like activity. I strongly recommend the patient follow-up with neurology for further evaluation she may benefit from EEG and their evaluation. The patient is stable for discharge. All labs, imaging and tests reviewed with the patient. Plan tofollowup on an outpatient basis as per discharge instructions with primary and/or appropriate specialist. The patient understands that there care does not end here, that they need followup and that they should return to the ED immediately if their symptoms worsen or if they have any acute changes. ED Course ED Course as of Aug 20 2105 [facility] Aug 21, 2019 3840 Patient informed that she has a known left cavernous malformation, is concerned that it could be bleeding. CT scan in CT ordered as well [CE] ED Course User Index [CE] Dewey Samano DO Clinical Impressions as of Aug 20 2105 Seizure-like activity Seizure Medical Decision Making Orders Placed This Encounter ??? CULTURE URINE ??? SARS-COV-2 (COVID-19) IN HOUSE ??? CT HEAD NON CONTRAST - intracranial hemorrhage ??? CT ANGIO BRAIN AND NECK ??? CBC W AUTO DIFFERENTIAL ??? COMPREHENSIVE METABOLIC PANEL ??? ALCOHOL ETHYL BLOOD ??? LACTIC ACID BLOOD ??? PROLACTIN ??? DRUG SCREEN TOX URINE PANEL ??? HCG URINE QUALITATIVE ??? URINALYSIS REFLEX MICROSCOPIC REFLEX CULTURE ??? URINE MICROSCOPIC ONLY REFLEX TO CULTURE ??? EKG 12-LEAD ??? lactated ringers IV bolus ??? DISCONTD: ALPRAZolam (XANAX) tablet 0.25 mg ??? DISCONTD: iopamidol (ISOVUE 370) 76 % contrast ??? 0.9% NaCl injection 0-10 mL ??? 0.9% NaCl IV Flush Bag Follow-up Information Follow-up With Details [place] [id number] [facility] [address] [address] User Date/Time Dewey Samano DO [facility] Aug 21, 2019 6:23 PM * Lisy Oakley - 08/21/2019 6:52 PM CDT Discharge instructions reviewed. Pt verbalized understanding. VSS. A&Ox4. Pt left with all belongings. * Kennedy Cornejo, RT(R)CT - 08/21/2019 5:[address] ready,called for pt * Lisy Oakley - 08/21/2019 5:20 PM CDT Spoke to pt's Jack for update on pt. All questions answered. Callback number [phone] * Lisy Oakley - 08/21/2019 4:10 PM CDT Pt arrives to ED with c/o of seizure at work. Pt states she was in the ED 2 days ago and was diagnosed with trichomonas and given antibiotics. Pt states she also has lupus. Pt is worried she was taking too much medication. Pt states she has had seizures before, last one was 2 months ago. Pt does not remember seizure happening. Pt states she still feels dizzy at this time. Pt states she has also been having chills, cough, and n/v. Pt states she was tested for covid 4 times because of her lupus and was negative. She states she sold a car to 2 travelling nurses from [place] a few days ago. Pt placed on monitor. VS per flowsheets. * Shaye Turcios RN - 08/21/2019 3:39 PM CDT Bed: 10 Expected date: Expected time: Means of arrival: Comments: 3837 29 y/o female seizure documented in this encounter Plan of Treatment Not on file documented as of this encounter Procedures Procedure Name Priority Date/Time Associated Diagnosis Comments CT ANGIO BRAIN AND NECK STAT 08/21/2019 5:47 PM CDT Seizure-like activity (HCC) CT HEAD WO CONTRAST STAT 08/21/2019 5 :43 PM CDT Seizure-like activity (HCC) SARS-COV-2 (COVID-19) IN HOUSE STAT 08/21/2019 4:47 PM CDT EKG 12-LEAD STAT 08/21/2019 4:17 PM CDT Seizure-like activity (HCC) URINE MICROSCOPIC ONLY REFLEX TO CULTURE STAT 08/21/2019 4:07 PM CDT URINALYSIS REFLEX MICROSCOPIC REFLEX CULTURE STAT 08/21/2019 4:07 PM CDT HCG URINE QUALITATIVE STAT 08/21/2019 4:07 PM CDT PROLACTIN STAT 08/21/2019 4:07 PM CDT CULTURE URINE STAT 08/21/2019 4:07 PM CDT CBC W AUTO DIFFERENTIAL STAT 08/21/2019 4:07 PM CDT COMPREHENSIVE METABOLIC PANEL STAT 08/21/2019 4:07 PM CDT URINE DRUG SCREEN IMMUNOASSAY STAT 08/21/2019 4:07 PM CDT LACTIC ACID BLOOD STAT 08/21/2019 4:0 7 PM CDT ALCOHOL ETHYL BLOOD STAT 08/21/2019 4 :07 PM CDT documented in this encounter Results * CT ANGIO BRAIN AND NECK (08/21/2019 [...] CT angiography of the cervical vessels and [place] of [place] was performed using a multislice [...] ([place]O), middle (MCA) and posterior cerebral arteries (ECONOMETRICS PROFESSOR). There is no evidence for intracranial aneurysm or cerebrovascular occlusion. Procedure Note Maki Wheeler MD - 08/21/2019 STUDY: CTA OF THE HEAD AND NECK CLINICAL INFORMATION: Seizure at work. Convulsions. COMPARISON: CT of the head performed immediately prior. TECHNIQUE: Thin section CT angiography of the cervical vessels and [place] was performed using a multislice [...] ([place]O), middle (MCA) and posterior cerebral arteries (ECONOMETRICS PROFESSOR). There is no evidence for intracranial aneurysm [...] PM Dewey Samano DO CT ORDERABLES * SARS-COV-2 (COVID-19) IN HOUSE (08/21/2019 4:47 PM CDT) Pathologist [facility] [place] COVID-19 PCR Not detected Not detected, Invalid 08/22/2019 2:45 AM CDT [facility] Microbiology SPECIMEN FROM NASOPHARYNGEAL STRUCTURE / Unknown Collection / Unknown 08/21/2019 4:47 PM CDT 08/21/2019 4:51 PM CDT Narrative [facility] - 08/22/2019 2:45 AM CDT This nucleic acid amplification assay performance was validated by [facility]. This test has been authorized [...] the authorization is terminated or revoked sooner. Dewey Samano DO LAB - MICROBIOLOGY O RDERABLES [facility] [address] [place], [address] [phone] * EKG 12-LEAD (08/21/2019 4:17 PM CDT) Pathologist [facility] [place] Ventricular Rate 99 BPM [facility] Atrial Rate 99 BPM [facility] P-R Interval 118 ms [facility] QRS Duration ms 68 ms [facility] Q-T Interval ms 352 ms [facility] QTC Calculation (Bezet) 451 ms [facility] Calculated P [place] 37 degrees [facility] Calculated R [place] 11 degrees [facility] Calculated T [place] 9 degrees [facility] Interpretation EKG Normal sinus rhythm Normal ECG No previous ECGs available Confirmed by PATRICA ASKEW MD ([id number]) on 08/22/2019 11:37:18 AM [facility] MUSE 08/21/2019 4:17 PM CDT 08/22/2019 11:37 AM CDT Dewey Samano DO ECG ORDERABLES Performing Organization Address [facility]/ZIP Co de Phone Number [facility] * (ABNORMAL) CULTURE URINE (08/21/2019 4:07 PM CDT) Culture Urine 10,000-50,0 00 CFU/mL Patti albicans(A) 08/23/2019 9:13 AM CDT [facility] Urine URINE SPECIMEN OBTAINED BY CLEAN CATCH PROCEDURE / Unknown Collection / Unknown 08/21/2019 4:07 PM CDT 08/21/2019 4:09 PM CDT Narrative [facility] - 08/23/2019 9:13 AM CDT Dewey Samano DO LAB - MICROBIOLOGY O RDERABLES Performing Organization Address City/[facility] Hospital/ZIP Co de Phone Number [facility] [address] [place] [address], [facility] [phone] * (ABNORMAL) URINE MICROSCOPIC ONLY REFLEX TO CULTURE (08/21/2019 4:07 PM CDT) Reflex Status Culture to follow 08/21/2019 4:19 PM CDT [facility] RBC UA 51-100(A) None Seen, 0-2, 3-5 # /hpf 08/21/2019 4:19 PM CDT [facility] WBC UA 6-10(A) None Seen, 0-5 # /hpf 08/21/2019 4:19 PM CDT [facility] Bacteria UA 2+(A) None Seen 08/21/2019 4:19 PM CDT [facility] Squamous Epithelial Cells >20(A) None Seen, 0-2, 3-5 /hpf 08/21/2019 4:19 PM CDT [facility] Mucus UA 3+ /LPF 08/21/2019 4:19 PM CDT [facility] Budding Yeast Many(A) None seen /hpf 08/21/2019 4:19 PM CDT [facility] Urine URINE SPECIMEN OBTAINED BY CLEAN CATCH PROCEDURE / Unknown Collection / Unknown 08/21/2019 4:07 PM CDT 08/21/2019 4:09 PM CDT Narrative [facility] - 08/21/2019 4:19 PM CDT Dewey Allen Selwyn AGUILERA LAB - URINALYSIS ORD ERABLES [facility] [address] [place] [address] * (ABNORMAL) URINALYSIS REFLEX MICROSCOPIC REFLEX CULTURE (08/21/2019 4:07 PM CDT) Color UA Yellow Straw, Yellow 08/21/2019 4:16 PM CDT [facility] Clarity UA Cloudy(A) Clear 08/21/2019 4:16 PM CDT [facility] Glucose UA Negative Negative 08/21/2019 4:16 PM CDT [facility] Bilirubin UA Negative Negative 08/21/2019 4:16 PM CDT [facility] Ketone UA Negative Negative 08/21/2019 4:16 PM CDT [facility] Specific [place] UA 1.021 1.005 - 1.030 08/21/2019 4:16 PM CDT [facility] Blood UA Negative Negative 08/21/2019 4:16 PM CDT [facility] pH UA 6.0 5.0 - 8.0 pH 08/21/2019 4:16 PM CDT [facility] Protein UA 2+(A) Negative 08/21/2019 4:16 PM CDT [facility] Urobilinogen UA Negative Negative mg/dL 08/21/2019 4:16 PM CDT [facility] Nitrite UA Negative Negative 08/21/2019 4:16 PM CDT [facility] Leukocyte UA 1+(A) Negative 08/21/2019 4:16 PM CDT [facility] Urine Microscopy Urine microscopy to follow 08/21/2019 4:16 PM CDT [facility] Reflex Status Culture to follow 08/21/2019 4:16 PM CDT [facility] Urine URINE SPECIMEN OBTAINED BY CLEAN CATCH PROCEDURE / Unknown Collection / Unknown 08/21/2019 4:07 PM CDT 08/21/2019 4:09 PM CDT Narrative [facility] - 08/21/2019 4:16 PM CDT Ascorbic Acid can cause false negative urine strip tests for blood, glucose, nitrite, and bilirubin. Dewey Samano DO LAB - URINALYSIS ORD ERABLES Performing Organization Address City/[facility] Hospital/ZIP Co de Phone Number [facility] [address] [place] [address] * HCG URINE QUALITATIVE (08/21/2019 4:07 PM CDT) Pathologist [facility] [place] hCG Qualitative Urine Negative Negative 08/21/2019 4:18 PM CDT [facility] Urine URINE / Unknown Collection / Unknown 08/21/2019 4:07 PM CDT 08/21/2019 4:09 PM CDT Dewey Samano LAB - URINALYSIS ORD ERABLES Performing Organization Address [facility] de Phone Number [facility] [address] [place] [phone] * (ABNORMAL) DRUG SCREEN TOX URINE PANEL (08/21/2019 4:07 PM CDT) [facility] Amphetamines Screen Urine Not detected Not detected 08/21/2019 4:37 PM CDT [facility] Barbiturates Screen Urine Not detected Not detected 08/21/2019 4:37 PM CDT [facility] Benzodiazepines Screen Urine Detected(A) Not detected 08/21/2019 4:37 PM CDT [facility] Cannabinoids Screen Urine Not detected Not detected 08/21/2019 4:37 PM CDT [facility] Cocaine Screen Urine Not detected Not detected 08/21/2019 4:37 PM CDT [facility] Fentanyl Urine Detected(A) Not detected 08/21/2019 4:37 PM CDT [facility] Methadone Screen Urine Not detected Not detected 08/21/2019 4:37 PM CDT [facility] Opiate Screen Urine Not detected Not detected 08/21/2019 4:37 PM CDT [facility] Phencyclidine Screen Urine Not detected Not detected 08/21/2019 4:37 PM CDT [facility] Urine URINE / Unknown Collection / Unknown 08/21/2019 4:07 PM CDT 08/21/2019 4:09 PM CDT Narrative [facility] - 08/21/2019 4:37 PM CDT [...] URINE CHEMISTR Y ORDERABLES Performing Organization Address [facility] Co de Phone Number [facility] [address] [place] [address] * (ABNORMAL) PROLACTIN (08/21/2019 4:07 PM CDT) Prolactin 32.97(H) 5.18 - 26.53 ng/mL 08/21/2019 5:03 PM CDT [facility] Blood BLOOD SPECIMEN / Unknown Venipuncture / Unknown 08/21/2019 4:07 PM CDT 08/21/2019 4:09 PM CDT Dewey Samano DO LAB - CHEMISTRY ORDE RABLES Performing Organization Address [facility] de Phone Number [facility] [address] [place] [address] * LACTIC ACID BLOOD (08/21/2019 4:07 PM CDT) Lactic Acid 0.90 0.5 - 2.2 mmol/L 08/21/2019 4:22 PM CDT [facility] Blood BLOOD SPECIMEN / Unknown Venipuncture / Unknown 08/21/2019 4:07 PM CDT 08/21/2019 4:09 PM CDT Dewey Gallodominic LAB [facility] Performing Organization Address [facility]/ZIP Co de Phone Number [facility] [address] [place] [address] * ALCOHOL ETHYL BLOOD (08/21/2019 4:07 PM CDT) Pathologist [facility] [place] Ethanol <10.0 <10 mg/dL 08/21/2019 4:28 PM CDT [facility] Ethanol Calculated <0.010 <=0.100 gm/dL 08/21/2019 4:28 PM CDT [facility] Blood BLOOD SPECIMEN / Unknown Venipuncture / Unknown 08/21/2019 4:07 PM CDT 08/21/2019 4:09 PM CDT Narrative [facility] - 08/21/2019 4:28 PM CDT Non Legal Serum Alcohol Dewey Tiffany Selwyn LAB - CHEMISTRY ORDE [facility] Performing Organization Address [facility] Co de Phone Number [facility] [address] [place] [address] * COMPREHENSIVE METABOLIC PANEL (08/21/2019 4:07 PM CDT) Glucose 96 70 - 105 mg/dL 08/21/2019 4:28 PM CDT [facility] Sodium 140 136 - 145 mmol/L 08/21/2019 4:28 PM CDT [facility] Potassium 3.8 3.5 - 5.1 mmol/L 08/21/2019 4:28 PM CDT [facility] Chloride 104 98 - 107 mmol/L 08/21/2019 4:28 PM CDT [facility] CO2 25 23 - 31 mmol/L 08/21/2019 4:28 PM CDT [facility] Calcium 9.6 8.4 - 10.4 mg/dL 08/21/2019 4:28 PM CDT [facility] Anion Gap 11 8 - 16 mmol/L 08/21/2019 4:28 PM CDT [facility] BUN 13 7 - 18.7 mg/dL 08/21/2019 4:28 PM CDT [facility] Creatinine 0.75 0.57 - 1.11 mg/dL 08/21/2019 4:28 PM CDT [facility] Alkaline Phosphatase 53 40 - 150 U/L 08/21/2019 4:28 PM CDT [facility] ALT 15 0 - 61 U/L 08/21/2019 4:28 PM CDT [facility] AST 14 5 - 34 U/L 08/21/2019 4:28 PM CDT [facility] Protein Total 7.6 6.4 - 8.3 gm/dL 08/21/2019 4:28 PM CDT [facility] Albumin 4.3 3.5 - 5.2 gm/dL 08/21/2019 4:28 PM CDT [facility] Bilirubin Total 0.4 0.2 - 1.0 mg/dL 08/21/2019 4:28 PM CDT [facility] eGFR by MDRD >60 >60 mL/min/1.7 3m2 08/21/2019 4:28 PM CDT [facility] eGFR by MDRD >60 >60 mL/min/1.7 3m2 08/21/2019 4:28 PM CDT [facility] Blood BLOOD SPECIMEN / Unknown Venipuncture / Unknown 08/21/2019 4:07 PM CDT 08/21/2019 4:09 PM CDT Dewey Samano DO LAB - CHEMISTRY [facility] Organization Address City/State/ZIP Co de Phone Number [facility] [address] [place] [address] * (ABNORMAL) CBC W AUTO DIFFERENTIAL (08/21/2019 4:07 PM CDT) WBC 9.9 4.4 - 10.7 x10E9/L 08/21/2019 4:14 PM CDT [facility] WBC Corrected 08/21/2019 4:14 PM CDT [facility] RBC 4.19 3.80 - 5.20 x10E12/L 08/21/2019 4:14 PM CDT [facility] Hemoglobin 11.8(L) 12.0 - 15.6 gm/dL 08/21/2019 4:14 PM CDT [facility] Hematocrit 37.1 35.9 - 45.5 % 08/21/2019 4:14 PM CDT [facility] MCV 88.5 80.7 - 98.3 fl 08/21/2019 4:14 PM CDT [facility] MCH 28.2 26.7 - 34.0 pg 08/21/2019 4:14 PM CDT [facility] MCHC 31.8 30.8 - 35.9 gm/dL 08/21/2019 4:14 PM CDT [facility] Platelet Count 381 153 - 416 x10E9/L 08/21/2019 4:14 PM CDT [facility] RDW-CV 13.7 12.1 - 14.9 % 08/21/2019 4:14 PM CDT [facility] MPV 9.4 9.4 - 12.9 fl 08/21/2019 4:14 PM CDT [facility] Neutrophils % 84.7(H) 44.0 - 73.0 % 08/21/2019 4:14 PM CDT [facility] Lymphocytes % 10.2(L) 20.0 - 43.0 % 08/21/2019 4:14 PM CDT [facility] Monocytes % 4.4(L) 5.0 - 13.0 % 08/21/2019 4:14 PM CDT [facility] Eosinophils % 0.2 0.0 - 6.0 % 08/21/2019 4:14 PM CDT [facility] Basophils % 0.1 0.0 - 2.0 % 08/21/2019 4:14 PM CDT [facility] Immature Granulocytes 0.4 0 - 1 % 08/21/2019 4:14 PM CDT [facility] Neutrophil Absolute 8.36(H) 2.01 - 7.14 x10E9/L 08/21/2019 4:14 PM CDT [facility] Lymphocytes Absolute 1.01(L) 1.07 - 3.94 x10E9/L 08/21/2019 4:14 PM CDT [facility] Monocytes Absolute 0.43 0.26 - 1.07 x10E9/L 08/21/2019 4:14 PM CDT [facility] Eosinophils Absolute 0.02 0 - 0.47 x10E9/L 08/21/2019 4:14 PM CDT [facility] Basophils Absolute 0.01 0 - 0.08 x10E9/L 08/21/2019 4:14 PM CDT [facility] Immature Granulocytes Absolute 0.04 0.00 - 0.06 x10E9/L 08/21/2019 4:14 PM CDT [facility] nRBC Auto 0 /100 WBC 08/21/2019 4:14 PM CDT [facility] Blood BLOOD SPECIMEN / Unknown Venipuncture / Unknown 08/21/2019 4:07 PM CDT 08/21/2019 4:09 PM CDT Dewey Samano DO LAB - HEMATOLOGY ORD ERABLES [facility] [address] [place] [address] documented in this encounter Visit Diagnoses Diagnosis Seizure-like activity (HCC) Other convulsions Seizure (HCC) Other convulsions documented in this encounter Administered Medications Inactive Administered Medications - up to 3 most recent administrations Medication Order MAR Action Action Date Dose Rate Site 0.9% NaCl injection 0-10 mL 0-10 mL, Intracatheter, ONCE PRN, Other, Contrast flush, 1 dose, Starting on Rachel 08/21/19 at 1734, Until Rachel 08/21/19 at 1739, For administration with contrast. $ Given 08/21/2019 5:39 PM CDT 10 mL 0.9% NaCl IV Flush Bag 0-250 mL, Intracatheter, ONCE PRN, Contrast flush, 1 dose, Starting on Rachel 08/21/19 at 1734, Until Rachel 08/21/19 at 1739, For administration with contrast $ Given 08/21/2019 5:39 PM CDT 100 mL ALPRAZolam (XANAX) tablet 0.25 mg 0.25 mg, Oral, 3 TIMES DAILY PRN, Anxiety, Starting on Rachel 08/21/19 at 1625, Until Rachel 08/21/19 at 1953 $ Given 08/21/2019 4:34 PM CDT 0.25 mg iopamidol (ISOVUE 370) 76 % contrast Intravenous, CONTRAST ONCE, Starting on Rachel 08/21/19 at 1734, Until Rachel 08/21/19 at 1953 $ Given - Contrast 08/21/2019 5:39 PM CDT 80 mL lactated ringers IV bolus 1,000 mL, at 983.61 mL/hr, Administer over 61 Minutes, NOW, 1 dose, On Rachel 08/21/19 at 1600 $ New Bag/Syringe 08/21/2019 4:15 PM CDT 1,000 mL 983.61 mL/hr documented in this encounter Active and Recently Administered Medications Times are shown in CDT. Scheduled Medication Order 08/19/2019 08/20/2019 08/21/2019 iopamidol (ISOVUE 370) 76 % contrast Intravenous, CONTRAST ONCE, Starting on Rachel 08/21/19 at 1734, Until Rachel 08/21/19 at 1953 1739 ($ Given - Cont rast - Provider: Maryam Man, RT(R)CT) lactated ringers IV bolus (COMPLETED) 1,000 mL, at 983.61 mL/hr, Administer over 61 Minutes, NOW, 1 dose, On Rachel 08/21/19 at 1600 1615 ($ New Bag/Syri nge - Provider: Lisy Oakley)[id number] (Stopped - Provider: Lisy Oakley) PRN Medication Order 08/19/2019 08/20/2019 08/21/2019 0.9% NaCl injection 0-10 mL (COMPLETED) 0-10 mL, Intracatheter, ONCE PRN, Other, Contrast flush, 1 dose, Starting on Rachel 08/21/19 at 1734, Until Rachel 08/21/19 at 1739, For administration with contrast. 1739 ($ Given - Prov ider: Maryam Man, RT(R)CT) 0.9% NaCl IV Flush Bag (COMPLETED) 0-250 mL, Intracatheter, ONCE PRN, Contrast flush, 1 dose, Starting on Rachel 08/21/19 at 1734, Until Rachel 08/21/19 at 1739, For administration with contrast 173 ($ Given - Prov ider: Maryam Man, RT(R)CT) ALPRAZolam (XANAX) tablet 0.25 mg 0.25 mg, Oral, 3 TIMES DAILY PRN, Anxiety, Starting on Rachel 08/21/19 at 1625, Until Rachel 08/21/19 at 1953 1634 ($ Given - Prov ider: Lisy Oakley) documented in this encounter Additional Health Concerns Infection Onset Date Last Indicated Resolved Time COVID-19 Under Investigation 08/21/2019 08/21/2019 08/22/2019 2:45 AM CDT documented as of this encounter Care Teams Crime Data Specialist Relationship Specialty Start Date End Date Huseyin Dangelo MD PCP - General 07/29/19 06/15/20 Sheldon Delgado MD Obstetrics and Gynecology 05/23/19 documented as of this encounter
--- OUTSIDE RECORDS SUMMARY | 2024-02-24 19:39 | XMS_ITS | Encounter Summary ---
Author Organization [facility] Address [address] [place] [address] Care Team Providers Care Meter Repairer Helper Name Role Phone Huseyin Dangelo MD Primary Care Provider [phone] Sheldon Delgado MD Unavailable [phone] Reason for Visit * Reason Onset Date Comments Question 05/26/2019 Encounter Details Date Type Department Care Team (Late st Contact Info) Description 05/26/2019 Telephone [facility] - Rheumatology [address] [facility] [place] [address] Ashlee Magallon MD [address] [facility] [address] [place] [address] Question Social History Tobacco Use [...] Telephone Encounter - Ashlee Magallon MD - 05/27/2019 1:51 PM CDT Called pt - she is c/o severe diarrhea x 11 d. This started before increased HCQ so should not be that. Advised to f/u with PCP - pt stated she saw her recently yesterday and had repeat HCG done awaitingresults. Reports testing negative for COVID. Advised to stay hydrated. Report to ER for any worsening symptoms. (Gayla Barker NP new PCP) * Telephone Encounter - Ailyn Nance - 05/26/2019 10:12 AM CDT Patient called asking if she could speak with I informed patient she is not in the office on mondays and could take a message. Patient asked that call her tomorrow when she is in and declined leaving any message details stated she would just tell over the phone when she calls her. documented in this encounter Plan of Treatment Not on file documented as of this encounter Visit Diagnoses Not on filedocumented in this encounter Care Teams Meter Repairer Helper Relationship Specialty Start Date End Date Huseyin Dangeol MD PCP - General Family Medicine 08/22/17 06/18/19 Sheldon Delgado MD Obstetrics and Gynecology 05/23/19 documented as of this encounter
--- OUTSIDE RECORDS SUMMARY | 2024-02-24 19:39 | XMS_ITS | Encounter Summary ---
Author Organization [facility] Address [address] [facility] [place] [address] Care Team Providers Care Quality Control Head Name Role Phone Huseyin Dangelo MD Primary Care Provider [phone] Reason for Visit * Reason Onset Date Comments Results 02/03/2019 Encounter Details Date Type Department Care Team (Late st Contact Info) Description 02/03/2019 Telephone [facility] - FELLING MACHINE OPERATOR [address] [facility], [address] [place] [address] Andrey Birch MD [address] [facility] [address] [place] [address] Results Social History Tobacco Use Types Packs/Day [...] encounter Miscellaneous Notes * Telephone Encounter - Francisca Haq - 02/03/2019 11:42 AM CST Called pt and advised of your recommendations, she wanted to come in tomorrow for another script for semen analysis because she lost the one we gave her and the one we faxed was sent to the [facility] in [place], she now wants to go to the office in [place] and also a Rx for Clomid. Called pt back and left amessage to advise that we faxed a copy of the Rx for analysis to the [facility] office. COORDINATOR * Telephone Encounter - Andrey Birch MD - 02/03/2019 11:21 AM CST I am amenable to prescribing Clomid however, we need to ensure that she is optimized prior to conception. [facility] will help that and help us to plan her early and ongoing care. COORDINATOR * Telephone Encounter - Francisca Haq - 02/03/2019 10:21 AM CST Pt called and asked if she really needed to go to [facility] or if you could Rx her the clomid or whateveryou think would get her , she does not have insurance and wants to avoid the cost. COORDINATOR documented in this encounter Plan of Treatment Not on file documented as of this encounter Visit Diagnoses Not on filedocumented in this encounter Care Teams Quality Control Head Relationship Specialty Start Date End Date Huseyin Dangelo MD PCP - General Family Medicine 08/22/17 06/18/19 documented as of this encounter
--- OUTSIDE RECORDS SUMMARY | 2024-02-24 19:39 | XMS_ITS | Encounter Summary ---
Author Organization [facility] Address [address] [place] [address] Care Team Providers Care Bricklayer Helper Name Role Phone Huseyin Dangelo MD Primary Care Provider [phone] Encounter Details Date Type Department Care Team (Late st Contact Info) Description 03/05/2019 Orders Only [facility] - Rheumatology [address] [place], [place] [id number] Ashlee Magallon MD [address] [place] [address] Social History Tobacco Use Types Packs/Day Years [...] on filedocumented in this encounter Care Teams Bricklayer Helper Relationship Specialty Start Date End Date Huseyin Dangelo MD PCP - General Family Medicine 08/22/17 06/18/19 documented as of this encounter
--- OUTSIDE RECORDS SUMMARY | 2024-02-24 19:39 | XMS_ITS | Encounter Summary ---
Author Organization [facility] Address [address] [facility] [place] [address] Care Team Providers Care Electrolysis Engineer Name Role Phone Huseyin Dangelo MD Primary Care Provider [phone] Reason for Visit * Reason Onset Date Comments Medication Prior Auth Request 03/07/2019 Encounter Details Date Type Department Care Team (Late st Contact Info) Description 03/07/2019 Telephone [facility] - [facility] [facility], [address] [place] [address] Andrey Birch MD [address] [facility] [address] [place] [address] Medication Prior Auth Request Social History Tobacco Use Types Packs/Day [...] * Telephone Encounter - Samantha Monk - 03/07/2019 3:33 PM CST T.C-> pt and let her know clomid was not approved. Pt states she was fine with it because it only costs $50.00. Pt voiced understanding. ERED SUGAR SUPERVISOR * Telephone Encounter - Samantha Monk - 03/07/2019 11:50 AM CST Received fax from [employer] stating PA is required for Clomid. TC-> [facility], decision is pending andsent for review. Will be contacted within 24-72 hours if further info is needed. Auth will come over via fax. ERED SUGAR SUPERVISOR documented in this encounter Plan of Treatment Not on file documented as of this encounter Visit Diagnoses Not on filedocumented in this encounter Care Teams Electrolysis Engineer Relationship Specialty Start Date End Date Huseyin Dangelo MD PCP - General Family Medicine 08/22/17 06/18/19 documented as of this encounter
--- OUTSIDE RECORDS SUMMARY | 2024-02-24 19:39 | XMS_ITS | Encounter Summary ---
Author Organization [facility] Address [address] [place] [address] Care Team Providers Care Well Drill Operator Cable Tool Name Role Phone Huseyin Dangelo MD Primary Care Provider [phone] Reason for Visit * Reason Comments Refill Request Encounter Details Date Type Department Care Team (Late st Contact Info) Description 02/03/2019 Refill [facility] - Rheumatology [address] [place] [id number] Ashlee Magallon MD [address] [place] [id number] Refill Request Social History Tobacco Use Types [...] Telephone Encounter - Samantha Caputo MA - 02/03/2019 8:53 AM DIRECTOR GLOBAL NON-BIOLOGIC REFILL REQUEST Last OV: 01/29/19 Next Appointment: Visit date not found Last Fill: 01/08/19 Recent Labs Component Name 01/15/19113710/01/18204909/25/18 1103 WBC 4.4 3.9* 4.8 HGB 11.9 10.7* 11.6* PLTCOUNT 290 238 277 MCV 87 83.3 83.6 Recent Labs Component Name 01/15/19113710/08/18 10310/01/182049 CREATININE 0.70 0.60 0.72 BUN 16 15 17 SODIUM 142 141 141 POTASSIUM 4.8 3.8 3.5 Recent Labs Component Name 01/15/19113710/08/18103310/01/182049 EGFR 120 126 >60 EGFRAFR 138 145 >60 Recent Labs Component Name 01/15/19 11310/08/184 10/01/182049 AST 39 18 16 ALT 21 22 23 ALKPHOS 44 45 42 TBIL 0.3 0.2 0.3 Last ESR: Recent Labs Component Name 01/15/19113710/08/18 1034 10/01/182049 SEDRATE 16 18 11 Last 3 CRP: Recent Labs Component Name 01/15/19113710/08/18 10310/01/182049 CRP <1 9 0.80* CTOR GLOBAL documented in this encounter Plan of Treatment Not on file documented as of this encounter Visit Diagnoses Not on filedocumented in this encounter Care Teams Well Drill Operator Cable Tool Relationship Specialty Start Date End Date Huseyin Dangelo MD PCP - General Family Medicine 08/22/17 06/18/19 documented as of this encounter
--- OUTSIDE RECORDS SUMMARY | 2024-02-24 19:39 | XMS_ITS | Encounter Summary ---
Author Organization [facility] Address [address] [facility] [place] [address] Care Team Providers Care Acute Coordinator Name Role Phone Huseyin Dangelo MD Primary Care Provider [phone] Reason for Visit * Reason Onset Date Comments Medication Issue 05/20/2019 Encounter Details Date Type Department Care Team (Late st Contact Info) Description 05/20/2019 Telephone [facility] - FILM EXAMINER [facility] [facility], [address] [place] [address] Andrey Birch MD [address] [facility] [address] [place] [address] Medication Issue Social History Tobacco Use Types Packs/Day Years [...] * Telephone Encounter - Samantha Monk - 05/20/2019 12:00 PM CDT T.C.-> pt and let her know of 's response. Pt voiced understanding. * Telephone Encounter - Andrey Birch MD - 05/20/2019 11:27 AM CDT OK for increased dose. * Telephone Encounter - Samnatha Monk - 05/20/2019 10:07 AM CDT Pt called stating she is about 5 weeks . She states she is having a Lupus flair up and she was told by her Medical Social Worker to take 40mg of prednisone and to taper down 5mg every 2 days. Pt states she is hesitant to take such a high dose or prednisone while and would like Dr. Birch's input. Please advise. documented in this encounter Plan of Treatment Not on file documented as of this encounter Visit Diagnoses Not on filedocumented in this encounter Care Teams Acute Coordinator Relationship Specialty Start Date End Date Huseyin Dangelo MD PCP - General Family Medicine 08/22/17 06/18/19 documented as of this encounter
--- OUTSIDE RECORDS SUMMARY | 2024-02-24 19:39 | XMS_ITS | Encounter Summary ---
Author Organization [facility] Address [address] [place] [address] Care Team Providers Care Underground Heavy Equipment Operator Name Role Phone Huseyin Dangelo MD Primary Care Provider [phone] Encounter Details Date Type Department Care Team (Late st Contact Info) Description 12/13/2018 Orders Only [facility] - Rheumatology [address] [facility] [address] [place] [id number] Ashlee Magallon MD [address] [facility] [address] [place] [address] Other forms of systemic lupus erythematosus, unspecified [...] Addendum Note - Angelique Abraham - 01/10/2019 4:02 PM CSTAddended by: ANGELIQUE ABRAHAM on: 01/10/2019 04:02 PM Modules accepted: Orders EXPORT AGENT documented in this encounter Plan of Treatment Not on file documented as of this encounter Visit Diagnoses Diagnosis Other forms of systemic lupus erythematosus, unspecified organ involvement status (HCC) Encounter for long-term (current) use of medications Encounter for long-term (current) use of other medications Proteinuria, unspecified type Dysuria documented in this encounter Care Teams Underground Heavy Equipment Operator Relationship Specialty Start Date End Date Huseyin Dangelo MD PCP - General Family Medicine 08/22/17 06/18/19 documented as of this encounter
--- OUTSIDE RECORDS SUMMARY | 2024-02-24 19:39 | XMS_ITS | Encounter Summary ---
Author Organization [facility] Address [address] [place] [address] Care Team Providers Care Porter Luggage Name Role Phone Huseyin Dangelo MD Primary Care Provider [phone] Reason for Visit * Reason Comments Refill Request Encounter Details Date Type Department Care Team (Late st Contact Info) Description 12/12/2018 Refill [facility] - Rheumatology [address] [place] [address] Ashlee Magallon MD [address] [place] [phone] Refill Request Social History Tobacco Use Types [...] Telephone Encounter - Keena Denny MA - 12/13/2018 9:20 AM CDT NON-BIOLOGIC REFILL REQUEST Last OV: 10/24/18 Next Appointment: 01/09/2019 Last Fill: 11/19/18 Recent Labs Component Name 10/01/18 2050 09/25/18 1103 08/22/18 1121 WBC 3.9* 4.8 7.0 HGB 10.7* 11.6* 10.8* PLTCOUNT 238 277 333 MCV 83.3 83.6 81.2 Recent Labs Component Name 08103310/01/18204909/25/18 1103 08/22/18 1121 CREATININE 0.60 0.72 0.8 0.72 BUN 15 17 20 11 SODIUM 141 141 - 140 POTASSIUM 3.8 3.5 3.6 4.0 Recent Labs Component Name 10/08/18 1034 10/01/18204909/25/18 1103 08/22/18 1121 EGFR 126 >60 [...] Name 10/08/18103310/01/18204909/25/18 1103 CRP 9 0.80* <0.5 documented in this encounter Plan of Treatment Not on file documented as of this encounter Visit Diagnoses Not on filedocumented in this encounter Care Teams Porter Luggage Relationship Specialty Start Date End Date Huseyin Dangelo MD PCP - General Family Medicine 08/22/17 06/18/19 documented as of this encounter
--- OUTSIDE RECORDS SUMMARY | 2024-02-24 19:39 | XMS_ITS | Encounter Summary ---
Author Organization [facility] Address [address] [place] [address] Care Team Providers Care Food Services Coordinator Name Role Phone Huseyin Dangelo MD Primary Care Provider Reason for Visit * Reason Onset Date Comments Update 02/25/2019 Encounter Details Date Type Department Care Team (Late st Contact Info) Description 02/25/2019 Telephone [facility] - Rheumatology [address] [place] [id number] Ashlee Magallon MD [address] [place] [id number] Update Social History Tobacco Use Types Packs/Day [...] * Telephone Encounter - Angelique Abraham - 02/25/2019 8:47 AM CST Patient contacted the office and spoke with Brendan and states Can I cancel my appointment today? I just need a refill on my prednisone for the flare I am in . Brendan informed patient she still needs to come in for her appointment. Patient verbalized understanding. Patient then called right back and asked to speak with myself (Angelique). She states I don't think I really need to come in today. I was going back through my [employer] messages and I haven't even startedthe Azathioprine yet. Patient was asked why she hadn't re-started the medication and her response was I don't have any of the medication. Patient informed that when Nayeli spoke with you last weeklesley had told her that since you didn't continue the Azathioprine you should still have refills at the pharmacy but you no longer use that pharmacy. Nayeli had told you to contact the pharmacy the medication was originally sent to and request the refills be transferred to your new pharmacy. Lisa Oh, well I did that and they said they didn't have any refills. I am out of my prednisone as well. Why is it always so difficult to refill the prednisone? Patient was asked why she didn't call us back so a prescription of Azathioprine could be called into the pharmacy and was informed thatthe reason it is difficult to refill the medication is because Dr. Magallon has tried decreasing the prescription several times and you still continue to take 2 tabs (10 mg) in AM and 1 tab (5 mg) in PM so the prescription is being taken more then what is actually prescribed. Her response was Well, Dr. Magallon and I have discussed this several times on the after hours exchange and she had increased theprednisone to 30 mg and I was to taper back down but I never did this. Patient was asked why she did not do this and last week when we had spoke you told me that you had talked with Dr. Magallon on the after hours exchange but you had not. Her response was Well, I don't have enough prednisone to increase the dose. If I did increase it I would have ran out in like 3 days. I don't like prednisone anyway. I also restarted the HCQ. Patient was informed that when you speak to Dr. Magallon during after hours you are to contact the office the next day informing the office you need a refill so we may thendiscuss with Dr. Magallon. She was also asked when the HCQ was restarted and her response was Well, I'm not taking it any longer . I informed her, you just told me you restarted the HCQ. When was the medication restarted, was it taken once daily or twice daily and how long was it taken for? Her response was I restarted it on the 19 of February and only took one tablet in the evening for one day. It made me dizzy again the next morning so I haven't taken it since. Patient informed I am keeping you on the schedule for today until I discussed all of this with Dr. Magallon. Her response was Well, Ilive like an hour away now and I just think its pointless to come in if she is going to just tell me to restart the Azathioprine like she has. Patient informed you had requested the visit for today because you are in a horrible flare and has not done what Dr. Magallon has previously asked. I informed her again that I would discuss with Dr. Magallon and call you back. Patient verbalized understanding andstates Ok, can you try and call me by 9:15 am because if she still wants to see me I will have to get up and start getting ready since I am an hour away. Patient contacted the office 3-5 minutes after we had gotten off the phone and informed Nayeli li will come to her appointment and discuss everything with Dr. Magallon. KILN OPERATOR documented in this encounter Plan of Treatment Not on file documented as of this encounter Visit Diagnoses Not on filedocumented in this encounter Care Teams Food Services Coordinator Relationship Specialty Start Date End Date Huseyin Dangelo MD PCP - General Family Medicine 08/22/17 06/18/19 documented as of this encounter
--- OUTSIDE RECORDS SUMMARY | 2024-02-24 19:39 | XMS_ITS | Encounter Summary ---
Author Organization [facility] Address [address] [place] [address] Care Team Providers Care Beater Engineer Helper Name Role Phone Huseyin Dangelo MD Primary Care Provider [phone] Reason for Visit * Reason Comments Refill Request Encounter Details Date Type Department Care Team (Late st Contact Info) Description 03/06/2019 Refill [facility] - Rheumatology [address] [place] [id number] Ashlee Magallon MD [address] [place] [id number] Refill Request Social History Tobacco Use Types [...] * Telephone Encounter - Angelique Abraham - 03/06/2019 8:49 AM CST NON-BIOLOGIC REFILL REQUEST Last OV: 02/25/19 Next Appointment: 05/27/2019 Last Fill: Unknown; has never been filled with our office. Recent Labs Component Name 03/04/19 1529 01/15/19 [...] 1138 10/08/18 1034 CRP 2.2 <1 9 MAN documented in this encounter Plan of Treatment Not on file documented as of this encounter Visit Diagnoses Not on filedocumented in this encounter Care Teams Beater Engineer Helper Relationship Specialty Start Date End Date Huseyin Dangelo MD PCP - General Family Medicine 08/22/17 06/18/19 documented as of this encounter
--- OUTSIDE RECORDS SUMMARY | 2024-02-24 19:39 | XMS_ITS | Encounter Summary ---
Author Organization [facility] Address [address] [place] [address] Care Team Providers Care Air Conditioning Coil Assembler Name Role Phone Huseyin Dangelo MD Primary Care Provider [phone] Encounter Details Date Type Department Care Team (Latest Contact Info) Description 05/14/2019 Travel Social History Tobacco Use Types Packs/Day [...] on filedocumented in this encounter Care Teams Air Conditioning Coil Assembler Relationship Specialty Start Date End Date Huseyin Dangelo MD PCP - General Family Medicine 08/22/17 06/18/19 documented as of this encounter
--- OUTSIDE RECORDS SUMMARY | 2024-02-24 19:39 | XMS_ITS | Encounter Summary ---
Author Organization [facility] Address [address] [place] [address] Care Team Providers Care Seaport Planning Manager Name Role Phone Huseyin Dangelo MD Primary Care Provider [phone] Encounter Details Date Type Department Care Team (Latest Contact Info) Description 05/22/2019 Travel Social History Tobacco Use Types Packs/Day [...] on filedocumented in this encounter Care Teams Seaport Planning Manager Relationship Specialty Start Date End Date Huseyin Dangelo MD PCP - General Family Medicine 08/22/17 06/18/19 documented as of this encounter
--- OUTSIDE RECORDS SUMMARY | 2024-02-24 19:39 | XMS_ITS | Encounter Summary ---
Author Organization [facility] Address [address] [place] [address] Care Team Providers Care High School Foreign Language Tutor Name Role Phone Huseyin Dangelo MD Primary Care Provider [phone] Reason for Visit * Reason Onset Date Comments Medication Issue 05/14/2019 Encounter Details Date Type Department Care Team (Late st Contact Info) Description 05/14/2019 Telephone [facility] - CHILD NUTRITION MANAGER [facility], [address] [place] [address] Andrey Birch MD [address] [facility] [place] [address] Medication Issue Social History Tobacco [...] * Telephone Encounter - Francisca Haq - 05/14/2019 3:52 PM CDT Called pt and relayed information. * Telephone Encounter - Andrey Birch MD - 05/14/2019 2:46 PM CDT Continue current medications. Will refer to [facility] for comanagement at visit. * Telephone Encounter - Francisca Haq - 05/14/2019 2:25 PM CDT Pt has taken 4 positive tests, she has lupus and is on numerous medications and would like you to look over them before her appointment on Sunday. Please advise so I can call pt. documented in this encounter Plan of Treatment Not on file documented as of this encounter Visit Diagnoses Not on filedocumented in this encounter Care Teams High School Foreign Language Tutor Relationship Specialty Start Date End Date Huseyin Dangelo MD PCP - General Family Medicine 08/22/17 06/18/19 documented as of this encounter
--- OUTSIDE RECORDS SUMMARY | 2024-02-24 19:39 | XMS_ITS | Encounter Summary ---
Author Organization [facility] Address [address] [place] [address] Care Team Providers Care Forest Supervisor Name Role Phone Huseyin Dangelo MD Primary Care Provider [phone] Reason for Visit * Reason Onset Date Comments MEDICATION REFILL 03/06/2019 Encounter Details Date Type Department Care Team (Late st Contact Info) Description 03/06/2019 Refill [facility] - CADASTRAL SURVEYOR [facility], [address] [place] [address] Andrey Birch MD [address] [facility] [address] [place] [address] MEDICATION REFILL Social History Tobacco [...] Encounter - Andrey Birch MD - 03/06/2019 4:12 PM CST ordered GER PURCHASING * Telephone Encounter - LachoSamantha - 03/06/2019 2:29 PM CST Pt called stating she never picked up her clomid and would like a new Rx sent to her [facility] pharmacy not [facility] pharmacy. This has been updated in pts chart. GER PURCHASING documented in this encounter Plan of Treatment Not on file documented as of this encounter Visit Diagnoses Diagnosis Irregular periods Irregular menstrual cycle documented in this encounter Care Teams Forest Supervisor Relationship Specialty Start Date End Date Huseyin Dangelo MD PCP - General Family Medicine 08/22/17 06/18/19 documented as of this encounter
--- OUTSIDE RECORDS SUMMARY | 2024-02-24 19:39 | XMS_ITS | Encounter Summary ---
Author Organization [facility] Address [address] [facility] [place] [address] Care Team Providers Care Glove Pairer Name Role Phone Huseyin Dangelo MD Primary Care Provider [phone] Reason for Referral * Consultation (Routine) - Closed Specialty Diagnoses / Procedures Referred By Contac t Referred To Contact Maternal and Medicine Diagnoses Systemic lupus erythematosus, unspecified SLE type, unspecified organ involvement status (HCC) Procedures AMB CONSULT TO MATERNAL MEDICNE Andrey Birch MD [address] [facility] [address] [place] [address] Referral ID Status Reason Start Date Expiration Date Visits Re quested Visits Authorized [id number] Closed 01/29/2019 07/28/2019 1 1 LE PLACER Reason for Visit * Reason Comments Establish Care possible yeast infec tion, desires Encounter Details Date Type Department Care Team (Latest Contact Info) Description 01/29/2019 10:45 AM RUBBLE PLACER Office Visit [facility] Medical [facility] - LEARNING AND DEVELOPMENT COORDINATOR [address] [place] [address], [address] [place] [address] Andrey Birch MD [address] [facility] [address] [place] [address] Encounter for gynecological examination with abnormal finding (Primary Dx); Systemic lupus erythematosus, unspecified SLE type, unspecified organ involvement status (HCC); Irregular periods; Genital herpes simplex, unspecified site; Vulvovaginitis Social History Tobacco Use Types Packs/Day Years [...] Sign Reading Time Taken Comments Blood Pressure 116/89 01/29/2019 10:30 AM RUBBLE PLACER Pulse 84 01/29/2019 10:30 AM RUBBLE PLACER Temperature - - Respiratory Rate 18 01/29/2019 10:30 AM RUBBLE PLACER Oxygen Saturation - - Inhaled Oxygen Concentration - - Weight 66.2 kg (146 lb) 01/29/2019 10:30 AM RUBBLE PLACER Height 157.5 cm (5' 2 ) 01/29/2019 10:30 AM RUBBLE PLACER Body Mass Index 26.7 01/29/2019 10:30 AM RUBBLE PLACER documented in this encounter Patient Instructions * Patient Instructions* Francisca Haq E - 01/29/2019 10:26 AM RUBBLE PLACER Thank you for choosing [facility] physicians for your healthcare needs. If you have any questions or concerns regarding your visit today, please contact our office. Thank you, HO Espinosa [facility] LEARNING AND DEVELOPMENT COORDINATOR Angélica Gamez After hours exchange: [facility] Our providers and staff are invested in your healthcare. We are dedicated to taking our time with you to take care of your needs and make sure you have an exceptional experience when visiting our office. In order to provide exceptional care to you and your family, it is important that you keep yourappointments. We understand that emergencies happen, but please notify our office if you will not be able to keepyour scheduled appointment. If you arrive more than 15 minutes late, your doctor may not be able to see you that day. Our office has a No Show policy; outlined below. Overview: ?? Missing scheduled appointments interferes with continued medical care and overall access for ourpatients. ??? If you need to reschedule your appointment, please cancel more than 24 hours in advance. ??? Automated reminders are provided to our patients for their appointments as a courtesy. The procedure for missed appointments is as follows: ??? First missed appointment. A letter will be mailed reminding you of the appointment and also provide information on rescheduling. ??? Additional missed appointments result in additional letters from your provider ??? After 3 No Shows, you may be subject to dismissal from the practice. We are happy to provide you with exceptional service and look forward to our continued role in yourhealth and medical care. Thank you The Staff and Providers at [facility] LE PLACER documented in this encounter Progress Notes * Andrey Birch MD - 01/31/2019 8:16 AM CST Please let Ms Rausch know that her final lab results were normal LE PLACER * Andrey Birch MD - 01/30/2019 2:02 PM CST Please let Ms Rausch know that her pap results were normal - yeast was present. She should take the prescribed diflucan. LE PLACER * Andrey Birch MD - 01/30/2019 11:00 AM CST Please let Ms Rausch know that her lab results were unremarkable and not contributory to her irregular ovulation. LE PLACER * Andrey Birch MD - 01/29/2019 10:53 AM CST Well Woman Yearly Exam HISTORY: Carito Rausch is a 28 year old female, Patient's last menstrual period was 01/16/2019 (exact date)., here for a Well Woman exam. Patient does have other gynecological issues or concerns. Patient notes SLE diagnosed last year following 20w loss. She is followed here by Dr. Magallon. She is interested in conception - will arrange for preconception counseling. The patient also reports inability to conceive - daily intercourse. Notes unpredictable cycles. Urinary LH surge negative. Motivated for conception - discussed oligomenorrhea and ovulation induction. Prefer to wait for MFM eval prior to starting. Discussed infertility work up. CONTRACT LEAD History: Menses: as per HPI Current control: none STD screening today: no Other pertinent CONTRACT LEAD history: none Denies CP, SOB, N/V, F/C, diarrhea or constipation Last Pap: 2018 per patient report normal OB History: OB History 2 Para 1 Term 1 AB 1 Living SAB 1 TAB Ectopic Multiple Live Births 1 Obstetric Comments Menarche 15 HSV No abnormal paps Received Gardasil Past Medical History: Past Medical History: Diagnosis Date ??? Anemia ??? Angina at rest ??? Fibromyalgia ??? Hypertension ??? Lupus Past Surgical History: Past Surgical History: Procedure Laterality Date ??? Appendectomy ??? Dilation and Curettage ??? OTHER SURGERY Right 2019 right wrist median nerve repair Family History: Breast cancer no , colon cancer no , uterine cancer no , ovarian cancer no Social History: Social History Socioeconomic History ??? Marital status: Single Spouse name: Not on file ??? Number of children: 0 ??? Years of education: Not on file ??? Highest education level: Not on file Occupational History ??? Not on file Social Needs ??? Financial resource strain: Not hard at all ??? Food insecurity: Worry: Never true Inability: Not on file ??? Transportation needs: Medical: No Non-medical: No Tobacco Use ??? Smoking status: Former Smoker Packs/day: 0.00 ??? Smokeless tobacco: Never Used Substance and Sexual Activity ??? Alcohol use: No ??? Drug use: Never Types: Marijuana Comment: last use 09/22/2018 ??? Sexual activity: Yes Partners: Male Lifestyle ??? Physical activity: Days per week: Not on file Minutes per session: Not on file ??? Stress: Not on file Relationships ??? Social connections: Talks on phone: Not on file Gets together: Not on file Attends scientologist service: Not on file Active member of club or organization: Not on file Attends meetings of clubs or organizations: Not on file Relationship status: Not on file ??? Intimate partner violence: Fear of current or ex partner: Not on file Emotionally abused: Not on file Physically abused: Not on file Forced sexual activity: Not on file Other Topics Concern ??? Not on file Social History Narrative ??? Not on file Current Outpatient Medications on File Prior to Visit Medication Sig Dispense Refill ??? ALPRAZolam (XANAX) 0.25 MG tablet Take 0.25 mg by mouth 3 times daily as needed for Anxiety ??? azaTHIOprine (IMURAN) 50 MG tablet Take 1 tablet by mouth 2 times daily 60 tablet 2 ??? hydroxychloroquine (PLAQUENIL) 200 [...] Take 10 mg by mouth once daily ??? valACYclovir (VALTREX) 1 GM tablet Take 1,000 mg by mouth every 12 hours No current facility-administered medications on file prior to visit. Other pertinent history: Medical, Surgical, Family, and Social History Reviewed. Allergies reviewed. Review of Systems Pertinent items are noted in HPI EXAMINATION BP 116/89 Pulse 84 Resp 18 Ht 5' 2 Wt 146 lb BMI 26.7 kg/m2 General Appearance: alert, cooperative, no distress, oriented to person, place, and time Extremities: no clubbing, cyanosis or edema Neck: No masses, thyroid not enlarged. Lymph Nodes: No cervical, axillary, or inguinal adenopathy Breasts: Symmetric, nontender, no masses or discharge, no skin changes or puckering noted Heart: Regular rhythm, normal S1 and S2, without murmurs or gallops. Lungs: Clear to auscultation bilaterally, no wheezes, rales or rhonchi Abdomen: Soft without mass, non-tender, no rebound, no guarding Pelvic: Vulva erythematous, urethral meatus, perineum and vagina appear normal. Speculum exam reveals a normal sized cervix with a nulliparous os. Bimanual exam reveals normal uterus and normal adnexae. Pap was performed. Discharge: White, curdy ASSESSMENT Well Woman Exam ICD-10-CM 1. Encounter for gynecological examination with abnormal finding Z01.411 PAP IG RFLX HPV ASCU fluconazole (DIFLUCAN) 150 MG tablet 2. Systemic lupus erythematosus, unspecified SLE type, unspecified organ involvement status M32.9 AMB CONSULT TO MATERNAL MEDICNE 3. Irregular periods N92.6 DHEA SULFATE FSH HYDROXYPROGESTERONE 17- QUANT PROLACTIN TESTOSTERONE FREE+TOT PANEL TSH REFLEX FREE T4 4. Genital herpes simplex, unspecified site A60.00 5. Vulvovaginitis N76.0 PLAN See orders, medications, patient instructions. Further plan will be based on results. Orders Placed This Encounter ??? DHEA SULFATE ??? FSH ??? HYDROXYPROGESTERONE 17- QUANT ??? PROLACTIN ??? TESTOSTERONE FREE+TOT PANEL ??? TSH REFLEX FREE T4 ??? AMB CONSULT TO MATERNAL MEDICNE ??? PAP IG RFLX HPV ASCU ??? fluconazole (DIFLUCAN) 150 MG tablet Myla. Dilan Birch MD, FACOG LE PLACER documented in this encounter Plan of Treatment Not on file documented as of this encounter Procedures Procedure Name Priority Date/Time Associated Diagnosis Comments HYDROXYPROGESTERONE 17- QUANT Routine 01/29/2019 12:31 PM RUBBLE PLACER Irregular periods TSH REFLEX FREE T4 Routine 01/29/2019 12:31 PM RUBBLE PLACER Irregular periods TESTOSTERONE FREE+TOTAL PANEL Routine 01/29/2019 12:31 PM RUBBLE PLACER Irregular periods DHEA SULFATE Routine 01/29/2019 12:31 PM RUBBLE PLACER Irregular periods PROLACTIN Routine 01/29/2019 12:31 PM RUBBLE PLACER Irregular periods FSH Routine 01/29/2019 12:31 PM RUBBLE PLACER Irregular periods PAP IG RFLX HPV ASCU Routine 01/29/2019 10:41 AM RUBBLE PLACER Encounter for gynecological examination with abnormal finding documented in this encounter Results * TSH REFLEX FREE T4 (01/29/2019 12:31 PM RUBBLE PLACER) TSH 0.499 0.350 - 4.940 ulU/mL [facility] ACCOUNT BILL Blood BLOOD SPECIMEN / Unknown 01/29/2019 12:31 PM RUBBLE PLACER 01/29/2019 Narrative Resulting Agency Comment Lab Testing performed at: [facility] [address] ?? Christal GUILLAUME [id number] Andrey Birch MD LAB - CHEMISTRY GREGORY RIVERA Performing Organization Address City/[facility]/ZIP Co de Phone Number [facility] ACCOUNT BILL [address] [place] [address] * TESTOSTERONE FREE+TOT PANEL (01/29/2019 12:31 PM RUBBLE PLACER) Testosterone Total LC-MS 11.5 10.0 - 55.0 ng/dL [facility] ACCOUNT BILL Free Testosterone(Dire ct) 0.2 0.0 - 4.2 pg/mL [facility] ACCOUNT BILL Blood BLOOD SPECIMEN / Unknown 01/29/2019 12:31 PM RUBBLE PLACER 01/29/2019 Narrative [facility] ACCOUNT BILL - 02/01/2019 4:35 AM RUBBLE PLACER Test(s) [id number]--[id number], Total, LC/MS was developed and its performance characteristics determined by [facility]. It has not been cleared or approved by the Food and Drug Administration. Resulting Agency Comment Lab Testing performed at: Lab[address] ??[facility] [id number] Andrey Birch MD LAB - CHEMISTRY GREGORY RIVERA Performing Organization Address City/[facility]/ZIP Co de Phone Number [facility] ACCOUNT BILL [address] [place] [address] * PROLACTIN (01/29/2019 12:31 PM RUBBLE PLACER) Prolactin 14.82 5.18 - 26.53 ng/mL [facility] ACCOUNT BILL Blood BLOOD SPECIMEN / Unknown 01/29/2019 12:31 PM RUBBLE PLACER 01/29/2019 Narrative Resulting Agency Comment Lab Testing performed at: [address] ??[facility] [id number] Andrey Birch MD LAB - CHEMISTRY GREGORY RIVERA [facility] ACCOUNT BILL [address] [place] [address] * HYDROXYPROGESTERONE 17- QUANT (01/29/2019 12:31 PM RUBBLE PLACER) [facility] 17-Hydroxyproge sterone LCMS 52 ng/dL [facility] ACCOUNT BILL Comment: ? Adult Female ?Follicular ?15 - ??70 ?Luteal ?35 - 290 Blood BLOOD SPECIMEN / Unknown 01/29/2019 12:31 PM RUBBLE PLACER 01/29/2019 Narrative [facility] ACCOUNT BILL - 01/31/2019 9:09 AM RUBBLE PLACER Test(s) [id number] Progesterone LCMS was developed and its performance characteristics determined by [facility]. It has not been cleared or approved by the Food and Drug Administration. Resulting Agency Comment Lab Testing performed at: [facility] ??[facility] [id number] Andrey Birch MD LAB - CHEMISTRY GREGORY RIVERA [facility] ACCOUNT BILL [address] [place] [address] * FSH (01/29/2019 12:31 PM RUBBLE PLACER) FSH 3.79 mIU/mL [facility] ACCOUNT BILL Comment: ? FSH Reference Range Normal Menstruating Females ? Follicular Phase ?3.03 - 8.08 mIU /mL ? Mid-Cycles Phase ? 2.55 - 16.69 mIU /mL ? Luteal Phase ?1.38 - 5.47 mIU /mL Post Menopausal Females ? 26.72 - 133.41 mIU /mL Males ?0.95 - 11.95 mIU/ mL Blood BLOOD SPECIMEN / Unknown 01/29/2019 12:31 PM RUBBLE PLACER 01/29/2019 Narrative Resulting Agency Comment Lab Testing performed at: [address] ??[facility] [id number] Andrey Birch MD LAB - CHEMISTRY GREGORY RIVERA [facility] Organization Address City/State/[facility] Co de Phone Number [facility] ACCOUNT BILL [address] [place] [address] * (ABNORMAL) DHEA SULFATE (01/29/2019 12:31 PM RUBBLE PLACER) Dehydroepiandrosterone Sulfate (DHEAS) 14.1(L) 84.8 - 378.0 ug/dL [facility] ACCOUNT BILL Blood BLOOD SPECIMEN / Unknown 01/29/2019 12:31 PM RUBBLE PLACER 01/29/2019 Narrative Resulting Agency Comment Lab Testing performed at: [facility] [address] [place] [address] ??[facility] [id number] Andrey Birch MD LAB - CHEMISTRY GREGORY RIVERA [facility] ACCOUNT BILL [address] [place] [address] * PAP IG RFLX HPV ASCU (01/29/2019 10:41 AM RUBBLE PLACER) Diagnosis [facility] INSURANCE BILL Comment: NEGATIVE FOR [...] UTERINE CERVIX / Unknown 01/29/2019 10:41 AM RUBBLE PLACER 01/29/2019 Narrative [facility] INSURANCE BILL - 01/30/2019 2:35 PM RUBBLE PLACER No. of containers..01 ThinPrep Vial Resulting Agency Comment [facility]: [facility] ??[place]uckie TERESA [id number] Andrey Birch MD LAB - PATHOLOGY/CYTO LOGY ORDERABLES [facility] INSURANCE BILL [address] [place] [address] documented in this encounter Visit Diagnoses Diagnosis Encounter for gynecological examination with abnormal finding- Primary Routine gynecological examination Systemic lupus erythematosus, unspecified SLE type, unspecified organ involvement status (HCC) Irregular periods Irregular menstrual cycle Genital herpes simplex, unspecified site Vulvovaginitis Vaginitis and vulvovaginitis, unspecified documented in this encounter Care Teams Glove Pairer Relationship Specialty Start Date End Date Huseyin Dangelo MD PCP - General Family Medicine 08/22/17 06/18/19 documented as of this encounter
--- OUTSIDE RECORDS SUMMARY | 2024-02-24 19:39 | XMS_ITS | Encounter Summary ---
Author Organization [facility] Address [address] [place] [place] [address] Care Team Providers Care Painter Spring Name Role Phone Huseyin Dangelo MD Primary Care Provider Encounter Details Date Type Department Care Team (Latest Contact Info) Description 05/16/2019 Travel Social History Tobacco Use Types Packs/Day [...] on filedocumented in this encounter Care Teams Painter Spring Relationship Specialty Start Date End Date Huseyin Dangelo MD PCP - General Family Medicine 08/22/17 06/18/19 documented as of this encounter
--- OUTSIDE RECORDS SUMMARY | 2024-02-24 19:39 | XMS_ITS | Encounter Summary ---
Author Organization [facility] Address [address] [address] Care Team Providers Care Meteorology Teacher Name Role Phone Huseyin Dangelo MD Primary Care Provider [phone] Sheldon Delgado MD Unavailable [phone] Encounter Details Date Type Department Care Team (Late st Contact Info) Description 06/12/2019 Orders Only [facility] - Rheumatology [address] [facility] [address] [place] [address] Ashlee Magallon MD [address] [facility] [address] [place] [id number] Encounter for long-term (current) use of medications ; Other forms of systemic lupus erythematosus, unspecified organ involvement status (HCC); High risk medications (not anticoagulants) long-term use [...] as of this encounter Plan of Treatment Scheduled Orders Name Type Priority Associated Diagnoses Orde r Schedule CBC WITH DIFFERENTIAL Lab Routine Other forms of systemic lupus erythematosus, unspecified organ involvement status (HCC) Encounter for long-term (current) use of medications High risk medications (not anticoagulants) long-term use Ordered: 06/12/2019 COMPREHENSIVE METABOLIC PANEL Lab Routine Other forms of systemic lupus erythematosus, unspecified organ involvement status (HCC) Encounter for long-term (current) use of medications High risk medications (not anticoagulants) long-term use Ordered: 06/12/2019 ERYTHROCYTE SEDIMENTATION RATE Lab Routine Other forms of systemic lupus erythematosus, unspecified organ involvement status (HCC) Encounter for long-term (current) use of medications High risk medications (not anticoagulants) long-term use Ordered: 06/12/2019 C-REACTIVE PROTEIN Lab Routine Other forms of systemic lupus erythematosus, unspecified organ involvement status (HCC) Encounter for long-term (current) use of medications High risk medications (not anticoagulants) long-term use Ordered: 06/12/2019 COMPLEMENT C3 C4 PANEL Lab Routine Other forms of systemic lupus erythematosus, unspecified organ involvement status (HCC) Encounter for long-term (current) use of medications High risk medications (not anticoagulants) long-term use Ordered: 06/12/2019 URINALYSIS W/MICROSCOPIC REFLEX TO CULTURE Lab Routine Other forms of systemic lupus erythematosus, unspecified organ involvement status (HCC) Encounter for long-term (current) use of medications High risk medications (not anticoagulants) long-term use Ordered: 06/12/2019 documented as of this encounter Visit Diagnoses Diagnosis Encounter for long-term (current) use of medications- Primary Encounter for long-term (current) use of other medications Other forms of systemic lupus erythematosus, unspecified organ involvement status (HCC) High risk medications (not anticoagulants) long-term use Encounter for long-term (current) use of other medications documented in this encounter Care Teams Meteorology Teacher Relationship Specialty Start Date End Date Huseyin Dangelo MD PCP - General Family Medicine 08/22/17 06/18/19 Sheldon Delgado MD Obstetrics and Gynecology 05/23/19 documented as of this encounter
--- OUTSIDE RECORDS SUMMARY | 2024-02-24 19:39 | XMS_ITS | Encounter Summary ---
Author Organization [facility] Address [address] [place] [address] Care Team Providers Care Call Or Contact Centre Team Leader Name Role Phone Huseyin Dangelo MD Primary Care Provider [phone] Reason for Visit * Reason Onset Date Comments Question 01/13/2019 Re: blood work a nd WBC count Encounter Details Date Type Department Care Team (Late st Contact Info) Description 01/13/[address] [facility] - Rheumatology [address] [facility] [address] [place] [address] Ashlee Magallon MD [address] [facility] [address] [place] [address] Question (Re: blood work and WBC count) Social History Tobacco Use Types Packs/Day Years [...] * Telephone Encounter - Angelique Abraham - 01/14/2019 9:50 AM CST [employer], LLCt message sent. AT MONITORING ANALYST * Telephone Encounter - Ashlee Magallon MD - 01/14/2019 8:37 AM CST Images from the original note were not included. Labs above from Care Everywhere. Yes she needs labs NAHOMY. I had discussed with her on this past Sunday evening after work hours when she called through the exchange, when she told me she was in fact taking arava 20mg a day instead of 10mg like she told us previously. For now will have her decrease leflunomide to 10mg a day, please inform patient. And remind her labs needed to be drawn TODAY. AT MONITORING ANALYST * Telephone Encounter - Angelique Abraham - 01/13/2019 2:27 PM CST Patient contacting the office stating I spoke with Dr. Magallon on Sunday and she wanted me to have blood work done because she is worried about my WBC being low. I was wondering if these have been ordered as I haven't seen them on [facility]. Patient informed the labs were ordered on Sunday and she would not be able to see the orders, just the results. She verbalized understanding and states Ok, so I don't have insurance anymore so I am going to have to pay out of pocket for these? How is this going to work and what is she looking for? Should I be worried about my WBC? Patient informed that thelabs go under account bill and since she is self pay [facility] will provide her with a discounted kim and can even set up payment options. She was informed of what labs Dr. Magallon is running and what they look for. She was also informed that per Dr. Magallon her WBC is low at 2.2 and needs to have this rechecked NAHOMY to find out if they are still low and if so what is going on. She verbalized understandingand states Can I from this? Patient informed that I would have to discuss that with Dr. Magallon but the WBC is what fights off the infections, and can also mean something more complicated is goingon so this is why it needs to be repeated to find out what your level is currently at. She verbalized understanding. - FYI - AT MONITORING ANALYST documented in this encounter Plan of Treatment Not on file documented as of this encounter Visit Diagnoses Not on filedocumented in this encounter Care Teams Call Or Contact Centre Team Leader Relationship Specialty Start Date End Date Huseyin Dangelo MD PCP - General Family Medicine 08/22/17 06/18/19 documented as of this encounter
--- OUTSIDE RECORDS SUMMARY | 2024-02-24 19:39 | XMS_ITS | Encounter Summary ---
Author Organization [facility] Address [address] [place] [address] Care Team Providers Care Laboratory Aide Name Role Phone Huseyin Dangelo MD Primary Care Provider [phone] Reason for Visit * Reason Onset Date Comments Question 12/31/2018 Encounter Details Date Type Department Care Team (Late st Contact Info) Description 12/31/2018 Telephone [facility] Medical [facility] - Rheumatology [address] [facility] [address] [place] [address] Ashlee Magallon MD [address] [facility] [address] [place] [id number] Question Social History Tobacco Use Types Packs/Day [...] encounter Miscellaneous Notes * Telephone Encounter - Jimena Sequeira - 12/31/2018 4:16 PM CST Patient stated that her Treasury Representative believed she did not need her to have a kidney biopsy and I gave her Dr. Magallon's recommendations of taking all of her current medications. She stated she is just going to mychart Dr. Magallon. TENING PRESS OPERATOR * Telephone Encounter - Ashlee Magallon MD - 12/31/2018 4:11 PM CST Continue same meds. Can you please find out if she ever had the kidney biopsy? TENING PRESS OPERATOR * Telephone Encounter - Jimena Sequeira - 12/31/2018 4:08 PM CST Patient was given Augmentin in the ER for Colitis. TENING PRESS OPERATOR * Telephone Encounter - Ashlee Magallon MD - 12/31/2018 4:05 PM CST Was she put on antibiotics for the colitis? Which ER? TENING PRESS OPERATOR * Telephone Encounter - Ailyn Nance - 12/31/2018 1:29 PM CST Pt called and stated she went to the ER today and she was told she has colitis she wanted to updateDr. Naun. Also stated she had surgery on December 09 and and wants to know if she should still be taking all of her medications? Patient made me aware that her WBC count was at a 3.2 at this time. TENING PRESS OPERATOR documented in this encounter Plan of Treatment Not on file documented as of this encounter Visit Diagnoses Not on filedocumented in this encounter Care Teams Laboratory Aide Relationship Specialty Start Date End Date Huseyin Dangelo MD PCP - General Family Medicine 08/22/17 06/18/19 documented as of this encounter
--- OUTSIDE RECORDS SUMMARY | 2024-02-24 19:39 | XMS_ITS | Encounter Summary ---
Author Organization [facility] Address [address] [facility] [place] [address] Care Team Providers Care Car Runner Name Role Phone Huseyin Dangelo MD Primary Care Provider [phone] Sheldon Delgado MD Unavailable [phone] Encounter Details Date Type Department Care Team (Latest Contact Info) Description 06/18/2019 Travel Social History Tobacco Use Types Packs/Day [...] have Coronavirus / COVID-19? No / Unsure 06/18/2019 4:22 PM CDT documented as of this encounter Plan of Treatment Not on file documented as of this encounter Visit Diagnoses Not on filedocumented in this encounter Care Teams Car Runner Relationship Specialty Start Date End Date Huseyin Dangelo MD PCP - General Family Medicine 08/22/17 06/18/19 Sheldon Delgado MD Obstetrics and Gynecology 05/23/19 documented as of this encounter
--- OUTSIDE RECORDS SUMMARY | 2024-02-24 19:39 | XMS_ITS | Encounter Summary ---
Author Organization [facility] Address [address] [facility] [place] [address] Care Team Providers Care Shirt Hemmer Name Role Phone Huseyin Dangelo MD Primary Care Provider [phone] Encounter Details Date Type Department Care Team (Late st Contact Info) Description 03/27/2019 Orders Only [facility] - Rheumatology [address] [place], [place] [id number] Ashlee Magallon MD [address] [place] [address] Social History Tobacco Use Types Packs/Day Years [...] on filedocumented in this encounter Care Teams Shirt Hemmer Relationship Specialty Start Date End Date Huseyin Dangelo MD PCP - General Family Medicine 08/22/17 06/18/19 documented as of this encounter
--- OUTSIDE RECORDS SUMMARY | 2024-02-24 19:39 | XMS_ITS | Encounter Summary ---
Author Organization [facility] Address [address] [facility] [place] [address] Care Team Providers Care Army Senior Officer Name Role Phone Huseyin Dangelo MD Primary Care Provider [phone] Encounter Details Date Type Department Care Team (Late st Contact Info) Description 05/20/2019 Orders Only [facility] Medical Group - Rheumatology [address] [place] [id number] Ashlee Magallon MD [address] [facility] [address] [place] [id number] High risk medications (not anticoagulants) long-term use ; Systemic lupus erythematosus, unspecified SLE type, unspecified [...] Associated Diagnosis Comments URINALYSIS MICROSCOPIC ONLY REFLEXED 05/22/2019 12:26 PM CDT URINALYSIS REFLEX TO MICROSCOPIC NO CULTURE Routine 05/22/2019 12:26 PM CDT High risk medications (not anticoagulants) long-term use Systemic lupus erythematosus, unspecified SLE type, unspecified organ involvement status (HCC) C-REACTIVE PROTEIN Routine 05/22/2019 12 :26 PM CDT High risk medications (not anticoagulants) long-term use Systemic lupus erythematosus, unspecified SLE type, unspecified organ involvement status (HCC) DNA ANTIBODY DOUBLE STRANDED Routine 05/22/2019 12:26 PM CDT High risk medications (not anticoagulants) long-term use Systemic lupus erythematosus, unspecified SLE type, unspecified organ involvement status (HCC) ERYTHROCYTE SEDIMENTATION RATE Routine 05/22/2019 12:26 PM CDT High risk medications (not anticoagulants) long-term use Systemic lupus erythematosus, unspecified SLE type, unspecified organ involvement status (HCC) CBC W AUTO DIFFERENTIAL Routine 05/22/2019 12:26 PM CDT High risk medications (not anticoagulants) long-term use Systemic lupus erythematosus, unspecified SLE type, unspecified organ involvement status (HCC) COMPREHENSIVE METABOLIC PANEL Routine 05/22/2019 12:26 PM CDT High risk medications (not anticoagulants) long-term use Systemic lupus erythematosus, unspecified SLE type, unspecified organ involvement status (HCC) COMPLEMENT C3 C4 PANEL Routine 0 12:26 PM CDT High risk medications (not anticoagulants) long-term use Systemic lupus erythematosus, unspecified SLE type, unspecified organ involvement status (HCC) documented in this encounter Results * URINALYSIS MICROSCOPIC ONLY REFLEXED (05/22/2019 12:26 PM CDT) WBC UA 0-5 # /hpf [facility] ACCOUNT [...] Resulting Agency Comment Lab Testing performed at: [address] ?? [place] [id number] Ashlee Magallon MD LAB - URINALYSIS ORD ERABLES [facility] ACCOUNT BILL [address] [place] [address] * (ABNORMAL) URINALYSIS REFLEX TO MICROSCOPIC NO CULTURE (05/22/2019 12:26 PM CDT) Pathologist [facility] Specific [place] UA 1.017 1.005 - 1.030 [facility] ACCOUNT [...] Urine [facility] ACCOUNT BILL Comment: URINE MICROSCOPY ([facility]) UA ?See Below ??Urine microscopy to follow Urine URINE SPECIMEN OBTAINED BY CLEAN CATCH PROCEDURE / Unknown 05/22/2019 12:26 PM CDT 05/22/2019 Narrative Resulting Agency Comment Lab Testing performed at: [address] ?? [place] [id number] Ashlee Magallon MD LAB - URINALYSIS ORD ERABLES [facility] ACCOUNT BILL [address] [place] [address] * (ABNORMAL) DNA ANTIBODY DOUBLE STRANDED (05/22/2019 12:26 PM CDT) Pathologist [facility] Anti-dsDNA Quantitative 84(H) 0 - 9 IU/mL [facility] ACCOUNT BILL Comment: ?Negative ?<5 ?Equivocal ??5 - 9 ?Positive ?>9 Blood BLOOD SPECIMEN / Unknown 05/22/2019 12:26 PM CDT 05/22/2019 Narrative Resulting Agency Comment Lab Testing performed at: [facility] [id number] ??[place] [id number] Ashlee Magallon MD LAB - HEMATOLOGY MONSERRAT TOMAS Performing Organization Address City/State/[facility] Co de Phone Number [facility] ACCOUNT BILL [address] [place] [address] * (ABNORMAL) COMPLEMENT C3 C4 PANEL (05/22/2019 12:26 PM CDT) Pathologist [facility] Complement C3 88 82 - 167 mg/dL [facility] ACCOUNT BILL Complement C4 10(L) 14 - 44 mg/dL [facility] ACCOUNT BILL Blood BLOOD SPECIMEN / Unknown 05/22/2019 12:26 PM CDT 05/22/2019 Narrative Resulting Agency Comment Lab Testing performed at: [facility] [address] ??[place] [id number] Ashlee Magallon MD LAB - CHEMISTRY GREGORY RIVERA [facility] ACCOUNT BILL [address] [place] [address] * C-REACTIVE PROTEIN (05/22/2019 12:26 PM CDT) C-Reactive Protein 0.40 <=0.50 mg/dL [facility] ACCOUNT BILL Blood BLOOD SPECIMEN / Unknown 05/22/2019 12:26 PM CDT 05/22/2019 Narrative Resulting Agency Comment Lab Testing performed at: [address] ?? [place] [id number] Ashlee Magallon MD LAB - CHEMISTRY GREGORY RIVERA Performing Organization Address City/[facility]/ZIP Co de Phone Number [facility] ACCOUNT BILL [address] [place] [address] * ERYTHROCYTE SEDIMENTATION RATE (05/22/2019 12:26 PM CDT) Erythrocyte Sedimentation Rate Westergren 14 0 - 20 mm/hr [facility] ACCOUNT BILL Blood BLOOD SPECIMEN / Unknown 05/22/2019 12:26 PM CDT 05/22/2019 Narrative Resulting Agency Comment Lab Testing performed at: [address] ?? [place] [id number] Ashlee Magallon MD LAB - HEMATOLOGY MONS[place]AT TOMAS [facility] ACCOUNT BILL [address] [place] [address] * (ABNORMAL) COMPREHENSIVE METABOLIC PANEL (05/22/2019 12:26 PM CDT) Glucose 100 70 - 105 mg/dL [facility] ACCOUNT BILL BUN 10 7 - 18.7 mg/dL [facility] ACCOUNT BILL Creatinine 0.67 0.57 - 1.11 mg/dL [facility] ACCOUNT BILL eGFR by MDRD >60 >60 mL/min/1.7 3m2 [facility] ACCOUNT BILL eGFR by MDRD >60 >60 mL/min/1.7 3m2 [facility] ACCOUNT BILL Sodium 137 136 - 145 mmol/L [facility] ACCOUNT BILL Potassium 4.0 3.5 - 5.1 mmol/L [facility] ACCOUNT BILL Chloride 105 98 - 107 mmol/L [facility] ACCOUNT BILL CO2 22(L) 23 - 31 mmol/L [facility] ACCOUNT BILL Calcium 9.2 8.4 - 10.4 mg/dL [facility] ACCOUNT BILL Protein Total 7.4 6.4 - 8.3 gm/dL [facility] ACCOUNT BILL Albumin 4.2 3.5 - 5.2 gm/dL [facility] ACCOUNT BILL Bilirubin Total 0.3 0.2 - 1.0 mg/dL [facility] ACCOUNT BILL Alkaline Phosphatase 39(L) 40 - 150 U/L [facility] ACCOUNT BILL AST 24 5 - 34 U/L [facility] ACCOUNT BILL ALT 28 0 - 61 U/L [facility] ACCOUNT BILL Blood BLOOD SPECIMEN / Unknown 05/22/2019 12:26 PM CDT 05/22/2019 Narrative Resulting Agency Comment Lab Testing performed at: [address] ?? [facility] [id number] Ashlee Magallon MD [facility] Organization Address City/State/ZIP Co de Phone Number [facility] ACCOUNT BILL [address] [place] [address] * (ABNORMAL) CBC WITH DIFFERENTIAL (05/22/2019 12:26 PM CDT) [facility] WBC 6.6 4.4 - 10.7 x10E9/L [facility] ACCOUNT BILL RBC 3.90 3.80 - 5.20 x10E12/L [facility] ACCOUNT BILL Hemoglobin 11.1(L) 12.0 - 15.6 gm/dL [facility] ACCOUNT BILL Hematocrit 34.8(L) 35.9 - 45.5 % [facility] ACCOUNT BILL MCV 89.2 80.7 - 98.3 fL [facility] ACCOUNT BILL MCH 28.5 26.7 - 34.0 pg [facility] ACCOUNT BILL MCHC 31.9 30.8 - 35.9 gm/dL [facility] ACCOUNT BILL RDW 14.6 12.1 - 14.9 % [facility] ACCOUNT BILL Platelet Count 307 153 - 416 x10E9/L [facility] ACCOUNT BILL Comment:MPV FL BLOOD ([facility]) 9 .5 fl 9.4-12.9 Granulocytes % 89.3(H) 44.0 - 73.0 % [facility] ACCOUNT BILL Lymphocytes % 8.0(L) 20.0 - 43.0 % [facility] ACCOUNT BILL Monocytes % 2.4(L) 5.0 - 13.0 % [facility] ACCOUNT BILL Eosinophils % 0.0 0.0 - 6.0 % [facility] ACCOUNT BILL Basophils % 0.0 0.0 - 2.0 % [facility] ACCOUNT BILL Granulocytes Absolute 5.92 2.01 - 7.14 x10E9/L [facility] ACCOUNT BILL Lymphocytes Absolute 0.53(L) 1.07 - 3.94 x10E9/L [facility] ACCOUNT BILL Monocytes Absolute 0.16(L) 0.26 - 1.07 x10E9/L [facility] ACCOUNT BILL Eosinophils Absolute 0.00 0 - 0.47 x10E9/L [facility] ACCOUNT BILL Basophils Absolute 0.00 0 - 0.08 x10E9/L [facility] ACCOUNT BILL Immature Granulocytes 0.3 0 - 1 % [facility] ACCOUNT BILL Immature Granulocytes Absolute 0.02 0.00 - 0.06 x10E9/L [facility] ACCOUNT BILL nRBC 0 /100 WBC [facility] ACCOUNT BILL Blood BLOOD SPECIMEN / Unknown 05/22/2019 12:26 PM CDT 05/22/2019 Narrative Resulting Agency Comment Lab Testing performed at: [address] ?? [place] [id number] Ashlee Magallon MD LAB - HEMATOLOGY ORD ERABLES [facility] Organization Address City/State/ZIP Co de Phone Number [facility] ACCOUNT BILL [address] [place] [address] documented in this encounter Visit Diagnoses Diagnosis High risk medications (not anticoagulants) long-term use- Primary Encounter for long-term (current) use of other medications Systemic lupus erythematosus, unspecified SLE type, unspecified organ involvement status (HCC) documented in this encounter Care Teams Army Senior Officer Relationship Specialty Start Date End Date Huseyin Dangelo MD PCP - General Family Medicine 08/22/17 06/18/19 documented as of this encounter
--- OUTSIDE RECORDS SUMMARY | 2024-02-24 19:39 | XMS_ITS | Encounter Summary ---
Author Organization [facility] Address [address] [facility] [place] [address] Care Team Providers Care Solar Thermal Installer Name Role Phone Huseyin Dangelo MD Primary Care Provider [phone] Encounter Details Date Type Department Care Team (Late st Contact Info) Description 11/01/2018 Orders Only [facility] Medical Group - Rheumatology [address] [facility] [address] [place], [place] [id number] Ashlee Magallon MD [address] [facility] [address] [place] [address] Other forms of systemic lupus erythematosus, unspecified [...] Progress Notes * Ashlee Magallon MD - 02/27/2019 1:08 PM CST Mild protein in UA as seen prior - needs to have the blood work done please inform pt L LAYER documented in this encounter Plan of Treatment Not on file documented as of this encounter Procedures Procedure Name Priority Date/Time Associated Diagnosis Comments URINALYSIS MICROSCOPIC ONLY REFLEXED Routine 02/25/2019 1:25 PM QUILL LAYER Proteinuria, unspecified type Dysuria Encounter for long-term (current) use of medications URINALYSIS REFLEX MICROSCOPIC REFLEX CULTURE Routine 02/25/2019 1:25 PM QUILL LAYER Proteinuria, unspecified type Dysuria Encounter for long-term (current) use of medications documented in this encounter Results * URINALYSIS MICROSCOPIC ONLY REFLEXED (02/25/2019 1:25 PM QUILL LAYER) WBC UA 0-5 0 - 5 /hpf [facility] ACCOUNT BILL RBC UA None seen 0 - 2 /hpf [facility] ACCOUNT BILL Epithelial Cells (non renal) 0-10 0 - 10 /hpf [facility] ACCOUNT BILL Epithelial Cells (renal) NOT NEEDED [facility] ACCOUNT BILL Comment:Ancillary determined the test is not needed. Casts ua NOT NEEDED [facility] ACCOUNT BILL Comment:Ancillary determined the test is not needed. Casts UA NOT NEEDED [facility] ACCOUNT BILL Comment:Ancillary determined the test is not needed. Crystals UA NOT NEEDED [facility] ACCOUNT BILL Comment:Ancillary determined the test is not needed. Crystals UA NOT NEEDED [facility] ACCOUNT BILL Comment:Ancillary determined the test is not needed. Mucus UA Present Not Estab. [facility] ACCOUNT BILL Bacteria UA None seen None seen/Few [facility] ACCOUNT BILL Yeast UA NOT NEEDED [facility] ACCOUNT BILL Comment:Ancillary determined the test is not needed. Trichomonas UA NOT NEEDED [facility] ACCOUNT BILL Comment:Ancillary determined the test is not needed. Comment Urine NOT NEEDED [facility] ACCOUNT BILL Comment:Ancillary determined the test is not needed. 02/25/2019 1:25 PM QUILL LAYER 02/25/2019 Narrative Resulting Agency Comment Lab Testing performed at: [facility] [place] [address] [facility] ??[facility] [phone] Ashlee Magallon MD LAB - URINALYSIS ORD ERABLES [facility] ACCOUNT BILL [address] [place] [address] * (ABNORMAL) URINALYSIS REFLEX MICROSCOPIC REFLEX CULTURE (02/25/2019 1:25 PM QUILL LAYER) Specific [place] UA 1.026 1.005 - 1.030 [facility] ACCOUNT [...] OBTAINED BY CLEAN CATCH PROCEDURE / Unknown 02/25/2019 1:25 PM QUILL LAYER 02/25/2019 Narrative Resulting Agency Comment Lab Testing performed at: [facility] [place] [address] [facility] ??[facility] [id number] Ashlee Magallon MD LAB - URINALYSIS ORD ERABLES [facility] ACCOUNT BILL [address] [place] [address] documented in this encounter Visit Diagnoses Diagnosis Other forms of systemic lupus erythematosus, unspecified organ involvement status (HCC) Encounter for long-term (current) use of medications Encounter for long-term (current) use of other medications Proteinuria, unspecified type Dysuria documented in this encounter Care Teams Solar Thermal Installer Relationship Specialty Start Date End Date Huseyin Dangelo MD PCP - General Family Medicine 08/22/17 06/18/19 documented as of this encounter
--- OUTSIDE RECORDS SUMMARY | 2024-02-24 19:39 | XMS_ITS | Encounter Summary ---
Author Organization [facility] Address [address] [facility] [place] [address] Care Team Providers Care Food Production Associate Name Role Phone Sheldon Delgado MD Unavailable [phone] Huseyin Dangelo MD Primary Care Provider [phone] Brian Mon MD Primary Care Provider [phone] Huseyin Dangelo MD Primary Care Provider [phone] Encounter Details Date Type Department Care Team (Late st Contact Info) Description 08/11/2019 Lab Requisition [facility] [address] [place] [address] Alton Valerio MD Social History Tobacco Use [...] Diagnosis Comments SARS-COV-2 (COVID-19) IN HOUSE Routine 08/10/2019 10:27 AM CDT documented in this encounter Results * SARS-COV-2 (COVID-19) IN HOUSE (08/10/2019 10:27 AM CDT) COVID-19 PCR Not detected Not detected, Invalid 08/11/2019 5:21 PM CDT [facility] Microbiology SPECIMEN FROM NASOPHARYNGEAL STRUCTURE / Unknown Collection / Unknown 08/10/2019 10:27 AM CDT 08/11/2019 9:00 AM CDT Narrative [facility] - 08/11/2019 5:21 PM CDT This Real Time RT-PCR assay was developed and its performance characteristics determined by [facility]. This test has been authorized [...] Alton Valerio MD LAB - MICROBIOLOGY ORDERABLES [facility] [address] [place] [address], [facility] [phone] documented in this encounter Visit Diagnoses Not on filedocumented in this encounter Additional Health Concerns Infection Onset Date Last Indicated Resolved Time COVID-19 Under Investigation 08/11/2019 08/10/2019 08/11/2019 5:21 PM CDT COVID-19 Under Investigation 08/21/2019 08/21/2019 08/22/2019 2:45 AM CDT COVID-19 Under Investigation 09/03/2019 09/03/2019 09/04/2019 9:16 PM CDT COVID-19 Under Investigation 09/05/2019 09/04/2019 09/05/2019 7:50 PM CDT documented as of this encounter Care Teams Food Production Associate Relationship Specialty Start Date End Date Huseyin Dangelo MD PCP - General 07/29/19 06/15/20 Brian Mon MD PCP - General Internal Medicine 06/16/20 12/19/20 [place] [id number] [address] PCP - General 12/20/20 05/03/23 Sheldon Delgado MD Obstetrics and Gynecology 05/23/19 documented as of this encounter
--- OUTSIDE RECORDS SUMMARY | 2024-02-24 19:39 | XMS_ITS | Encounter Summary ---
Author Organization [facility] Address [address] [place] [place] [address] Care Team Providers Care Supervisor Pipe Manufacture Name Role Phone Huseyin Dangelo MD Primary Care Provider [phone] Reason for Visit * Reason Onset Date Comments Results 01/30/2019 Encounter Details Date Type Department Care Team (Late st Contact Info) Description 01/30/2019 Telephone [facility] Medical Group - ORACLE APPLICATIONS ANALYST [address] [facility] [place] [address] Andrey Birch MD [address] [facility] [address] [place] [address] Results Social History Tobacco Use [...] * Telephone Encounter - Samantha Monk - 01/30/2019 9:28 AM CST Pt called stating she noticed in MyChart some of her results have come in. She would like for Dr. Birch to review what has been resulted. CAL VOUCHER CLERK documented in this encounter Plan of Treatment Not on file documented as of this encounter Visit Diagnoses Not on filedocumented in this encounter Care Teams Supervisor Pipe Manufacture Relationship Specialty Start Date End Date Huseyin Dangelo MD PCP - General Family Medicine 08/22/17 06/18/19 documented as of this encounter
--- OUTSIDE RECORDS SUMMARY | 2024-02-24 19:39 | XMS_ITS | Encounter Summary ---
Author Organization [facility] Address [address] [facility] [place] [address] Care Team Providers Care Supervisor Instant Potato Processing Name Role Phone Huseyin Dangelo MD Primary Care Provider [phone] Sheldon Delgado MD Unavailable Gayla Barker MOBILE ARCHITECT-[facility] Primary Care Provider + Reason for Visit * Reason Onset Date Comments MEDICATION REFILL 06/18/2019 Encounter Details Date Type Department Care Team (Late st Contact Info) Description 06/18/2019 Refill [facility] Medical [facility] - Rheumatology [address] [facility] [address] [place] [address] Ashlee Magallon MD [address] [facility] [address] [place] [address] MEDICATION REFILL Social History Tobacco [...] * Telephone Encounter - Angelique Abraham - 06/18/2019 3:04 PM CDT NON-BIOLOGIC REFILL REQUEST Last OV: 05/23/2019 (video) Next Appointment: Visit date not found Last Fill: 06/12/2019 for Imuran & Prednisone, 05/23/2019 for Vit D & 04/01/2019 for Omeprazole. Vit D level last drawn on 10/08/2018 w/results of 22.2 Recent Labs Component Name 05/22/19 1226 03/04/19 [...] (HCC) documented in this encounter Care Teams Supervisor Instant Potato Processing Relationship Specialty Start Date End Date Huseyin Dangelo MD PCP - General Family Medicine 08/22/17 06/18/19 Gayla Barker APRN-[facility] PCP - General Nurse Practitioner 06/19/19 07/28/19 Sheldon Delgado MD Obstetrics and Gynecology 05/23/19 documented as of this encounter
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
--- OUTSIDE RECORDS SUMMARY | 2024-02-24 19:39 | XMS_ITS | Encounter Summary ---
Author Organization [facility] Address [address] [place] [address] Care Team Providers Care Enterprise Systems Engineer Name Role Phone Huseyin Dangelo MD Primary Care Provider [phone] Reason for Visit * Reason Comments Refill Request Encounter Details Date Type Department Care Team (Late st Contact Info) Description 11/17/2018 Refill [facility] - Rheumatology [address] [place], [place] [id number] Ashlee Magallon MD [address] [address] [place] [id number] Refill Request Social History Tobacco Use Types [...] encounter Miscellaneous Notes * Telephone Encounter - Leigh Angelique Hollis - 11/18/2018 8:49 AM CDT NON-BIOLOGIC REFILL REQUEST Last OV: 10/24/18 Next Appointment: 01/09/2019 Last Fill: 10/21/18, was for a taper dose. Pt has still been taking 15 mg daily. On 11/14/18 pt informed to try and go down to 10 mg x2 weeks, then 7.5 mg x2 weeks and to call with an update. Recent Labs Component Name 10/01/18204909/25/18 1103 08/22/18 1121 WBC 3.9* 4.8 7.0 HGB 10.7* 11.6* 10.8* PLTCOUNT 238 277 333 MCV 83.3 83.6 81.2 Recent Labs Component Name 10/08/18103310/01/18204909/25/18110208/22/18 1121 CREATININE 0.60 0.72 0.8 0.72 BUN 15 17 20 11 SODIUM 141 141 - 140 POTASSIUM 3.8 3.5 3.6 4.0 Recent Labs Component Name 10/08/18103310/01/18204909/25/18 1103 08/22/18 1121 EGFR 126 >60 >60 >60 EGFRAFR 145 >60 - >60 Recent Labs Component Name 10/08/18103310/01/18204909/25/18110208/22/18 1121 AST 18 16 16 15 ALT 19 12* ALKPHOS 45 42 47 43 TBIL 0.2 0.3 - 0.4 Last ESR: Recent Labs Component Name 10/08/18103310/01/18204908/22/18 1121 SEDRATE 18 11 9 Last 3 CRP: Recent Labs Component Name 10/08/18103310/01/18204909/25/18 1103 CRP 9 0.80* <0.5 * Telephone Encounter - Keena Denny MA - 11/18/2018 8:02 AM CDT Left a voice mail as to why she needed Prednisone taper dose. documented in this encounter Plan of Treatment Not on file documented as of this encounter Visit Diagnoses Not on filedocumented in this encounter Care Teams Enterprise Systems Engineer Relationship Specialty Start Date End Date Huseyin Dangelo MD PCP - General Family Medicine 08/22/17 06/18/19 documented as of this encounter
--- OUTSIDE RECORDS SUMMARY | 2024-02-24 19:39 | XMS_ITS | Encounter Summary ---
Author Organization [facility] Address [address] [place] [address] Care Team Providers Care Surveyor Mine Name Role Phone Huseyin Dangelo MD Primary Care Provider [phone] Reason for Visit * Reason Onset Date Comments Order 01/29/2019 semen analysis Encounter Details Date Type Department Care Team (Late st Contact Info) Description 01/29/2019 Telephone [facility] - RN FLOAT [facility] [place] [address] Andrey Birch MD [address] [facility] [address] [place] [address] Order (semen analysis) Social History Tobacco Use Types Packs/Day Years [...] * Telephone Encounter - Samantha Monk - 01/29/2019 11:48 AM CST Per orders of Dr. Birch, Semen analysis order for S/O Jack Madison DOB 06/25/1974 faxed to [facility] @ [phone]. LER CHIEF documented in this encounter Plan of Treatment Not on file documented as of this encounter Visit Diagnoses Not on filedocumented in this encounter Care Teams Surveyor Mine Relationship Specialty Start Date End Date Huseyin Dangelo MD PCP - General Family Medicine 08/22/17 06/18/19 documented as of this encounter
--- OUTSIDE RECORDS SUMMARY | 2024-02-24 19:39 | XMS_ITS | Encounter Summary ---
Author Organization [facility] Address [address] [address] Care Team Providers Care Major Assembly Lineman Name Role Phone Huseyin Dangelo MD Primary Care Provider [phone] Sheldon Delgado MD Unavailable [phone] Reason for Visit * Reason Onset Date Comments Appointment 06/18/2019 Question 06/18/2019 Encounter Details Date Type Department Care Team (Late st Contact Info) Description 06/18/2019 Telephone [facility] - Rheumatology [address] [place], [place] [id number] Ashlee Magallon MD [address] [facility] [address] [place] [address] Appointment; Question Social History Tobacco Use Types Packs/Day [...] Telephone Encounter - Angelique Abraham - 06/18/2019 3:54 PM CDT Please see mychart message. Patient was offered video visit. * Telephone Encounter - Ashlee Magallon MD - 06/18/2019 2:45 PM CDT Schedule a zoom call for tomorrow afternoon please. Will not be treating her pain concerns until I talk to her via the zoom call. * Telephone Encounter - Angelique Abraham - 06/18/2019 9:51 AM CDT Please advise. A Web[employer]ott message has also been routed to you as well. * Telephone Encounter - Anthony Martel - 06/18/2019 9:27 AM CDT The patient called, she is requesting an appointment with Dr Magallon. She reports some sores in her mouth and increased joint in her knees, elbows and hands. She also feels she has better energy and canmove around a little better. She said the pain she has is different, its more like she is bruised, she also said that when she gets up in the morning if hurts to touch the surface of her head. 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 She was advised to practice social distancing and Dr Magallon would comment on the necessity. She is having her labs drawn on Sunday and asked if she could add some to the list that Dr Magallon put in? She sent a MyChart message with her s pecific lab questions. Please advise documented in this encounter Plan of Treatment Not on file documented as of this encounter Visit Diagnoses Not on filedocumented in this encounter Care Teams Major Assembly Lineman Relationship Specialty Start Date End Date Huseyin Dangelo MD PCP - General Family Medicine 08/22/17 06/18/19 Sheldon Delgado MD Obstetrics and Gynecology 05/23/19 documented as of this encounter
--- OUTSIDE RECORDS SUMMARY | 2024-02-24 19:39 | XMS_ITS | Encounter Summary ---
Author Organization [facility] Address [address] [facility] [place] [place] [address] Care Team Providers Care Tumbling Machine Operator Name Role Phone Huseyin Dangelo MD Primary Care Provider [phone] Encounter Details Date Type Department Care Team (Latest Contact Info) Description 03/10/2019 12:10 PM WATER RESOURCE CONSULTANT - 03/10/2019 12:48 PM [facility] Hospital Encounter [facility] Imaging Services - Radiology [address] [place] [address] Ashlee Magallon MD [address] [facility] [address] [place] [address] Discharge Disposition: Home or Self Care [...] 03/27/2019 vitamin D, ergocalciferol, (DRISDOL) 1.25 MG (32092 UT) capsule Take 1 capsule by mouth every 7 days 12 capsule 02/11/2019 05/22/2019 documented as of this encounter Progress Notes * Ashlee Magallon MD - 03/10/2019 12:48 PM CST (normal, pt aware) R RESOURCE CONSULTANT documented in this encounter Plan of Treatment Not on file documented as of this encounter Procedures Procedure Name Priority Date/Time Associated Diagnosis Comments XR HIPS BILATERAL 2VW Routine 03/10/2019 12:30 PM WATER RESOURCE CONSULTANT 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 Reading Radiologist: Jamarcus Oconnor MD on 03/10/2019 at 1:31 PM Narrative 03/10/2019 1:31 PM WATER RESOURCE CONSULTANT Examination: Two-view bilateral hips HISTORY: Bilateral hip [...] Ashlee Magallon MD DIAGNOSTIC IMAGING O RDERABLES documented in this encounter Visit Diagnoses Diagnosis 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 Pain in joint, pelvic region and thigh FDC (current) use of systemic steroids documented in this encounter Care Teams Tumbling Machine Operator Relationship Specialty Start Date End Date Huseyin Dangelo MD PCP - General Family Medicine 08/22/17 06/18/19 documented as of this encounter
--- OUTSIDE RECORDS SUMMARY | 2024-02-24 19:39 | XMS_ITS | Encounter Summary ---
Author Organization [facility] Address [address] [facility] [place] [address] Care Team Providers Care Marine Equipment Design Engineer Name Role Phone Huseyin Dangelo MD Primary Care Provider [phone] Encounter Details Date Type Department Care Team (Late st Contact Info) Description 02/11/2019 Orders Only [facility] - Rheumatology [address] [place] [id number] Ashlee Magallon MD [address] [place] [address] Social History Tobacco Use Types Packs/Day Years [...] on filedocumented in this encounter Care Teams Marine Equipment Design Engineer Relationship Specialty Start Date End Date Huseyin Dangelo MD PCP - General Family Medicine 08/22/17 06/18/19 documented as of this encounter
--- OUTSIDE RECORDS SUMMARY | 2024-02-24 19:39 | XMS_ITS | Encounter Summary ---
Author Organization [facility] Address [address] [place] [address] Care Team Providers Care Ent Physician Name Role Phone Huseyin Dangelo MD Primary Care Provider [phone] Reason for Referral * Cardiac (Routine) - Closed Specialty Diagnoses / Procedures Referred By Contac t Referred To Contact Cardiology Diagnoses SOB (shortness of breath) Other forms of systemic lupus erythematosus, unspecified organ involvement status (HCC) Procedures ECHOCARDIOGRAM 2D WITH DOPPLER Ashlee Magallon MD [address] [place] [phone] [facility] Cardiology [address] [place] [address] Referral ID Status Reason Start Date Expiration Date Visits Re quested Visits Authorized [id number] Closed 10/29/2018 04/27/2019 1 1 Encounter Details Date Type Department Care Team (Late st Contact Info) Description 10/29/2018 Orders Only [facility] Medical [facility] - Rheumatology [address] [place] [address] Ashlee Magallon MD [address] [place] [address] SOB (shortness of breath) ; Other forms of systemic lupus erythematosus, unspecified organ involvement status (HCC) Social History [...] documented as of this encounter Results * ECHOCARDIOGRAM 2D WITH DOPPLER (10/30/2018 9:15 AM CDT) 10/30/2018 9:15 AM CDT Narrative [facility] - 10/30/2018 3:41 PM CDT Transthoracic Echocardiogram 2D, M-mode, Doppler, and Color Doppler Patient: UMER ELDER MR number: [id number] Height: 62 in Weight: 139.7 lb BSA: 1.64 m?? Study date: 30-Oct-2018 : 1990 Age: 28 years Gender: Female Race: 2 Allergies: METHYLPREDNISOLONE Reading Physician: ??Lloyd Mcarthur MD Senior Software Quality Engineer: ??Najma Sol, [facility], RDMS, RVT Ordering Physician: ??Ashlee Magallon MD Reading Physician: ??Lloyd cMarthur MD Summary: - ??Clinical question: - ??SOB, [...] Color Doppler Patient: UMER ELDER MR number: [id number] Height: 62 in Weight: 139.7 lb BSA: 1.64 m?? Study date: 30-Oct-2018 : 1990 Age: 28 years Gender: Female Race: 2 Allergies: METHYLPREDNISOLONE Reading Physician: Lloyd Mcarthur MD Senior Software Quality Engineer: Najma Sol RDCS, RDMS, RVT Ordering Physician: [...] 30-Oct-2018 15:40:34 Ashlee Magallon MD ECHO ORDERABLES [facility] [address] [place] [address] documented in this encounter Visit Diagnoses Diagnosis SOB (shortness of breath)- Primary Shortness of breath Other forms of systemic lupus erythematosus, unspecified organ involvement status (HCC) SOB (shortness of breath) Shortness of breath Other forms of systemic lupus erythematosus, unspecified organ involvement status (HCC) documented in this encounter Care Teams Ent Physician Relationship Specialty Start Date End Date Huseyin Dangelo MD PCP - General Family Medicine 08/22/17 06/18/19 documented as of this encounter
--- OUTSIDE RECORDS SUMMARY | 2024-02-24 19:39 | XMS_ITS | Encounter Summary ---
Author Organization [facility] Address [address] [place] [address] Care Team Providers Care Bathroom Tiling Professional Name Role Phone Huseyin Dangelo MD Primary Care Provider [phone] Reason for Visit * Reason Onset Date Comments Question 02/11/2019 Encounter Details Date Type Department Care Team (Late st Contact Info) Description 02/11/2019 Telephone [facility] - Rheumatology [address] [place] [id number] Ashlee Magallon MD [address] [place] [id number] Question Social History Tobacco Use Types Packs/Day [...] encounter Miscellaneous Notes * Telephone Encounter - Ailyn Nance - 02/11/2019 11:53 AM CST Patient stated she spoke to about taking a medication to clear her system of leflunomide soshe can become with out complications. She would like to know how to get started with this? SORTER documented in this encounter Plan of Treatment Not on file documented as of this encounter Visit Diagnoses Not on filedocumented in this encounter Care Teams Bathroom Tiling Professional Relationship Specialty Start Date End Date Huseyin Dangelo MD PCP - General Family Medicine 08/22/17 06/18/19 documented as of this encounter
--- OUTSIDE RECORDS SUMMARY | 2024-02-24 19:39 | XMS_ITS | Encounter Summary ---
Author Organization [facility] Address [address] [place] [address] Care Team Providers Care Hospice Patient Care Secretary Name Role Phone Huseyin Dangelo MD Primary Care Provider [phone] Reason for Visit * Reason Onset Date Comments Medication Issue 03/19/2019 Encounter Details Date Type Department Care Team (Late st Contact Info) Description 03/19/[address] [facility] - Rheumatology [address] [place] [address] Ashlee Magallon MD [address] [place] [phone] Medication Issue Social History Tobacco Use Types [...] Telephone Encounter - Ashlee Magallon MD - 03/19/2019 12:26 PM CST Noted OSAL ENGINEER * Telephone Encounter - Chitra Hardy - 03/19/2019 9:35 AM CST Patient called stating she can not take her Plaquenil because of her joint pain,Migraine and tiredness. patient said she can not get out of bed and would like to stop medication. patient said she will be sending you information on a [facility] she would like to go to as well.. OSAL ENGINEER documented in this encounter Plan of Treatment Not on file documented as of this encounter Visit Diagnoses Not on filedocumented in this encounter Care Teams Hospice Patient Care Secretary Relationship Specialty Start Date End Date Huseyin Dangelo MD PCP - General Family Medicine 08/22/17 06/18/19 documented as of this encounter
--- OUTSIDE RECORDS SUMMARY | 2024-02-24 19:39 | XMS_ITS | Encounter Summary ---
Author Organization [facility] Address [address] [place] [address] Care Team Providers Care History Instructor Name Role Phone Huseyin Dangelo MD Primary Care Provider [phone] Reason for Visit * Reason Onset Date Comments Med Question 03/06/2019 Encounter Details Date Type Department Care Team (Late st Contact Info) Description 03/06/2019 Telephone [facility] - Rheumatology [address] [place] [address] Ashlee Magallon MD [address] [place] [id number] Med Question Social History Tobacco Use Types Packs/Day [...] * Telephone Encounter - Angelique Abraham - 03/07/2019 3:43 PM CST Spoke with patient providing the information given by Dr. Magallon and was asked what side her muscle weakness is worse on and if she experiences any numbness and tingling and if so which extremities is it worse on. She verbalized understanding and states I will try to decrease the prednisone. The muscle weakness is pretty much the same everywhere. I do get numbness and tingling typically seems to be worse on my left side. Order for x-ray and EMG/NCS placed. 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 This can cause weakness but not usually pain in the muscles. We will order an EMG to look for this. I am happy to give her instructions on how to wean off the steroids. Needs hip xrays to r/o AVN from senior care steroids (avascular necrosis) so staff please order b/l hip films. Decrease back to 15mg x 1 week, then start decreasing by 2.5mg each week (every 7 days) until down to 5mg then we will re-assess. IC WELDER * Telephone Encounter - Angelique Abraham - 03/07/2019 3:00 PM CST Spoke with patient providing the information given by Dr. Magallon. She verbalized understanding and states I do have a PCP but he started me on the cellcept and everyone I had been to couldn't believe that is what he started me on. I do want to get off the prednisone so bad but my joints just hurt sobad and I feel like I am getting worse then better. Since I started the higher dose (30 mg) my hips have been killing me and I just hurt all over. Today is my 3rd day of being on the higher dose and honestly I wouldn't want to take it any longer because I do want to eventually get off of it. I am so scared that my muscles and bones are just getting worse and worse from being on it so long. How can I get off the prednisone? I am now over being dizzy all the time with Hydroxychloroquine and am taking it once daily. I did also want to ask about my CK levels being low. I know it has to do with mymuscles and it's not good. 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 Is there anything I can take to help make my muscle mass or bones better and not to feel weak all of the time? Patient was advised that the HCQ can take 3-6 months to take full effect and with that being a maintenance medication that hopefully once it does start taking effect she will beable to tolerate decreasing the prednisone. She verbalized understanding. Please advise. IC WELDER * Telephone Encounter - Ashlee Magallon MD - 03/07/2019 11:37 AM CST Her normal labs suggest the lupus is not overtly active at this time, but she does definitely have underlying lupus. Also the prednisone can mask the clues in the labs. This is why we need to get her off the prednisone. As far as what else it could be I cannot test her for food allergies and other random conditions. Her exam is not suggestive of anything else going on from a rheumatologic standpoint. Even though she has lupus, she needs to continue to see her primary care doctor to discuss all of her other health concerns and have routine checkups for other routine Health conditions. Not every symptom she may have is from lupus. IC WELDER * Telephone Encounter - Angelique Abraham - 03/06/2019 4:37 PM CST Spoke with patient providing the information given by Dr. Magallon. She verbalized understanding and states I did reach out to Dr. Birch and he prescribed me something. Could you please ask Dr. Magallon if she thinks that I could have something going on, on top of my Lupus? Could this possibly not even be Lupus? If my blood work was normal why am I in all of this pain. I am been really wondering lately if something else could be going on that is making me feel this way like even a food allergy. If there is any additional blood work she would like for me to get I am off the next few days and would be able to go anytime. Please advise. IC WELDER * Telephone Encounter - Ashlee Magallon MD - 03/06/2019 3:39 PM CST Prednisone yes maybe, HCQ no. Would have her reach out to skein yarn dyer helper to get treated as they are more familiar with this based on symptoms etc. IC WELDER * Telephone Encounter - Angelique Abraham - 03/06/2019 2:49 PM CST Please advise. IC WELDER * Telephone Encounter - Shauna Johnson - 03/06/2019 2:16 PM CST The patient called and stated she was recently started on Hydroxychloroquine and increased her prednisone at the same time. She wants to know if those can give her a yeast infection. She has no itching or burning, but has white clumps . IC WELDER documented in this encounter Plan of Treatment Not on file documented as of this encounter Visit Diagnoses Not on filedocumented in this encounter Care Teams History Instructor Relationship Specialty Start Date End Date Huseyin Dangelo MD PCP - General Family Medicine 08/22/17 06/18/19 documented as of this encounter
--- OUTSIDE RECORDS SUMMARY | 2024-02-24 19:40 | XMS_ITS | Encounter Summary ---
Author Organization [facility] Address [address] [place] [address] Care Team Providers Care Obstetrics Gyn Physician Name Role Phone Huseyin Dangelo MD Primary Care Provider [phone] Reason for Visit * Reason Comments GENERALIZED BODY ACHES States she has fi bromyalgia and lupus. PCP states he wants patient to be evaluated by Neuro due to symptoms of generalized pain. Encounter Details Date Type Department Care Team (Late st Contact Info) Description 07/05/2018 4:17 PM CDT - 07/05/2018 6:24 PM CDT Emergency ER at [address] [id number] Cristofer Dempsey MD [address] [place] [address] Emergency Department [place] [id number] Myalgia (Primary Dx) Discharge Disposition: Home or Self Care Social History Tobacco Use Types Packs/Day Years Used Date Smoking Tobacco: Every Day Cigarettes Smokeless Tobacco: Never Alcohol Use Standard Drinks/Week Comments Yes 0 (1 standard drink = 0.6 oz pur e alcohol) socailly Sex and Gender Information Value Date Recorded Sex Assigned at Not on file Gender Identity Not on file Sexual Orientation Not on file documented as of this encounter Last Filed Vital Signs Vital Sign Reading Time Taken Comments Blood Pressure 127/84 07/05/2018 6:22 PM CDT Pulse 77 07/05/2018 6:22 PM CDT Temperature 36.8 ??C (98.2 ??F) 07/05/2018 6:22 PM CD T Respiratory Rate 16 07/05/2018 6:22 PM CDT Oxygen Saturation 100% 07/05/2018 6:22 PM CDT Inhaled Oxygen Concentration - - Weight 65.8 kg (145 lb) 07/05/2018 4:26 PM CDT Height 152.4 cm (5') 07/05/2018 4:26 PM CDT Body Mass Index 28.32 07/05/2018 4:26 PM CDT documented in this encounter Discharge Instructions * Discharge Instructions* Cristofer Dempsey MD - 07/05/2018 5:59 PM CDT Lupus Erythematosus WHAT YOU NEED TO KNOW: What is lupus? Lupus is an autoimmune inflammatory disease. This means that your immune system starts to attack your body instead of harmful germs. It is also called systemic lupus erythematosus. Lupus is a lifelong disease that affects all parts of your body. Lupus has active and quiet periods. The active periods, also called flares, are when you have symptoms. The quiet periods, or remission, are when you have few or no symptoms. A remission period may last months or years, or you may not have remission periods at all. What increases my risk for lupus? The cause of lupus is unknown. You are at increased risk if you are female, take hormones, or have a family member with lupus. Certain medicines, such as hydralazineand minocycline, can increase your risk for lupus. Ask your healthcare provider for more information about what increases your risk for lupus. What are the signs and symptoms of lupus? ?? Fever over 100??F (38??C) ?? Tiredness, weight loss, or headache ?? Rash shaped like butterfly wings ?? Sensitivity to sunlight ?? Hair loss ?? Mouth or nose sores ?? Painful joints ?? Chest pain or cough when you take a deep breath ?? Abdominal pain, nausea, or vomiting How is lupus diagnosed? ?? Blood tests: Your blood will be tested for infection, inflammation, or anemia (low red blood cells). ?? Urine tests: Your urine will be tested for protein or blood. ?? X-rays: This is a picture of your joints or chest to check for infection or extra fluid. ?? Biopsy: Tissue may be taken from your skin, muscle, or kidney to check for the cause of your lupus. How is lupus treated? There is no cure for lupus. Lupus may be triggered by stress, ultraviolet light, or an infection, such as a cold. It can also be triggered by cigarette smoke or foods you eat. The following will help control your symptoms: ?? Antimalarial medicine: This is used to relieve your joint and skin symptoms of lupus, such as rash and joint pain. ?? Steroids: These decrease inflammation. They may be given as a pill, IV, or ointment. ?? NSAIDs: These decrease swelling, pain, and fever. NSAIDs are available without a doctor's order. Ask your healthcare provider which medicine is right for you. Ask how much to take and when to take it. Take as directed. NSAIDs can cause stomach bleeding and kidney problems if not taken correctly. ?? Immunosuppressive medicine: This is used to slow down your immune system. This will help your immune system not attack your body. ?? Cytotoxic medicine: This is used to decrease inflammation in muscles or joints. It also slows down your immune system. What are the risks of lupus? ?? You may be so tired that you cannot work at times. Your risk for a serious infection is increased. You may develop vision loss. You may become depressed or anxious. Your fingers may turn pale or blue when they are cold. This is called Reynaud syndrome. You may become forgetful or have trouble concentrating. You may develop headaches, vision problems, or have a seizure. ?? You may develop kidney disease or kidney failure. You may have high blood pressure or narrowing of your arteries. This can lead to heart disease or heart failure. You may have bleeding problems, such as anemia. You may get a blood clot in your leg. The clot may travel to your heart or brain and cause life- threatening problems, such as a heart attack or stroke. How can I manage my symptoms? ?? Rest: Rest when you feel it is needed. Slowly start to do more each day. Return to your daily activities as directed. ?? Protect your skin from UV light: Sunlight can make your lupus symptoms worse. Avoid the sun between 10 am and 4 pm, when the rays are strongest. Apply sunscreen with a SPF of 30 or more every 2 hours when you are outside. Do this even on cloudy days. Wear pants and long sleeves to cover your body. A hat with a wide brim can protect your face, head, and neck. ?? Heat: Heat helps decrease joint pain or swelling. Apply heat on the painful joint for 20 to 30 minutes every 2 hours for as many days as directed. ?? Ice: Ice helps decrease swelling and pain. Ice may also help prevent tissue damage. Use an ice pack, or put crushed ice in a plastic bag. Cover it with a towel and place it on the painful area for15 to 20 minutes every hour or as directed. ?? Avoid others who are sick: You are at increased risk of a severe infection. ?? Treat flares quickly: This will help prevent serious illness. How can I help prevent a lupus flare? ?? Eat healthy foods: Healthy foods include fruits, vegetables, whole-grain breads, low-fat dairy products, beans, lean meats, and fish. Ask if you need to be on a special diet. ?? Exercise: This will help decrease your symptoms and prevent depression. Ask your healthcare provider about the best exercise plan for you. ?? Maintain a healthy weight: Ask your healthcare provider how much you should weigh. Ask him to help you create a weight loss plan if you are overweight. ?? Do not smoke: If you smoke, it is never too late to quit. Ask for information about how to stop smoking if you need help. ?? Manage your stress: Stress may slow healing and lead to illness. Learn ways to control stress, such as relaxation, deep breathing, and music. Talk to someone about things that upset you. Where can I find support and more information? ?? [employer] [address] [place] [address], [address] [place] [address] Phone: Phone: Web Address: http://www.lupus.org ?? National [place] [employer] and [employer] and [employer] Information Clearinghouse National [employer] of [employer] [address] [place] [address] Phone: Phone: Web Address: http://www.niams.nih.gov When should I contact my healthcare provider? ?? You have a flare of your lupus symptoms. ?? You have a fever or headache. ?? You feel like you are starting to get sick. ?? You start to urinate less than usual. ?? You are bleeding from your nose or gums. ?? You bruise easily. ?? You have questions or concerns about your condition or care. When should I seek immediate care or call 911? ?? You have blood in your urine, bowel movement, or vomit. ?? You have severe abdominal pain. ?? You are confused or feel dizzy or faint. ?? You have numbness or weakness of your face or limbs, or have trouble seeing or speaking. ?? You have a seizure. ?? You have new, sudden vision changes. ?? You have trouble breathing. ?? You have chest pain, pressure, or discomfort that may spread to your arms, jaw, or back. ?? Your leg feels warm, tender, and painful. It may look swollen and red. ?? You suddenly feel lightheaded and short of breath. ?? You have chest pain when you take a deep breath or cough. ?? You cough up blood. CARE AGREEMENT: You have the right to help plan your care. Learn about your health condition and how it may be treated. Discuss treatment options with your healthcare providers to decide what care you want to receive. You always have the right to refuse treatment. The above information is an first aid nurse only. It is not intended as medical advice for individual conditions or treatments. Talk to your doctor, nurse or pharmacist before following any medical regimen to see if it is safe and effective for you. ?? Copyright [employer] 2019 Information is for End User's use only and may not be sold, redistributed or otherwise used for commercial purposes. All illustrations and images included in CareNotes?? are the copyrighted property of [employer]. or [employer] Autoimmune Disease WHAT YOU NEED TO KNOW: An autoimmune disease causes your body's immune system to attack healthy cells in your body by mistake. Antibodies are created by your body to destroy foreign substances that can be harmful to you. An autoimmune disease causes the antibodies to attack healthy cells instead of foreign substances. This causes inflammation in the affected areas. The disease may affect any part of your body, including skin, organs, blood, your digestive system, and connective tissues. There are many autoimmune diseases, such as lupus, celiac disease, and diabetes. DISCHARGE INSTRUCTIONS: Return to the emergency department if: ?? You have severe pain or swelling. ?? You have a fever along with stiffness and pain. ?? You have blood in your urine, bowel movement, or vomit. ?? You have severe abdominal pain. ?? You are confused or feel dizzy or faint. Contact your healthcare provider if: ?? You have new symptoms. ?? You are urinating less than usual. ?? You are bleeding from your nose or gums. ?? You bruise easily. ?? You have questions or concerns about your condition or care. Medicines: ?? Medicines may be given to replace thyroid hormones, insulin, or other hormones your body is not producing. You may also be given medicine to reduce your immune system's ability to attack healthy cells or to decrease inflammation in muscles or joints. ?? Topical creams or lotions may help control a rash or other symptoms that affect your skin. ?? Prescription pain medicine may be given. Ask your healthcare provider how to take this medicine safely. ?? NSAIDs , such as ibuprofen, help decrease swelling, pain, and fever. This medicine is available with or without a doctor's order. NSAIDs can cause stomach bleeding or kidney problems in certain people. If you take blood thinner medicine, always ask your healthcare provider if NSAIDs are safe foryou. Always read the medicine label and follow directions. ?? Acetaminophen reduces pain and fever. This medicine is available without a doctor's order. Ask how much to take and how often to take it. Follow directions. Acetaminophen can cause liver damage ifnot taken correctly. ?? Steroids may be given to reduce pain or swelling. ?? Take your medicine as directed. Contact your healthcare provider if you think your medicine is not helping or if you have side effects. Tell him of her if you are allergic to any medicine. Keep a list of the medicines, vitamins, and herbs you take. Include the amounts, and when and why you take them. Bring the list or the pill bottles to follow-up visits. Carry your medicine list with you in case of an emergency. Manage your autoimmune disease: ?? Rest as needed. Talk to your healthcare provider if you are having trouble sleeping because of pain or other symptoms. Rest your joints if they are stiff or painful. Your healthcare provider may suggest support devices such as crutches or splints to help your joints rest. ?? Eat a variety of healthy foods. Healthy foods include fruits, vegetables, lean meats, fish, and low-fat dairy products. Work with your healthcare provider or dietitian to create healthy meal plans. You may need to stop eating certain foods if your digestive system is affected by your autoimmune disease. ?? Go to physical or occupational therapy as directed. A physical therapist can help you create an exercise plan. Exercise may help increase your energy. Exercise can also help keep stiff joints flexible and increase range of motion. An occupational therapist can help you learn to do your daily activities when you have pain or swelling during a flare. ?? Do not smoke. Nicotine can damage blood vessels and make it more difficult to manage your symptoms. Ask your healthcare provider for information if you currently smoke and need help to quit. E-cigarettes or smokeless tobacco still contain nicotine. Talk to your healthcare provider before you usethese products. ?? Talk to your healthcare provider about . If you are a woman and want to get , talk to your healthcare provider. You or your baby might be at risk for complications. You may need to wait until your disease is controlled or your medications are finished before you get . You may also have trouble getting because of your disease. Your healthcare provider may be able to suggest ways to improve your ability to become . ?? Manage stress. Stress may slow healing and lead to illness. Learn ways to control stress, such as relaxation, deep breathing, or listening to music. Manage flares: A flare means something triggered your symptoms. Stress, cold weather, and sunlight are examples of triggers. Your healthcare provider can help you create a management plan that includes what to do if you have a flare. Treat flares quickly to help prevent serious illness. ?? Apply ice or heat as directed. Ice helps reduce pain and swelling, and may help prevent tissue damage. Use a cold compress, or put crushed ice in a bag. Cover it with a towel and apply to the painful area for 15 to 20 minutes every hour, or as directed. Heat helps reduce pain and muscle spasms. Apply a warm compress to the area for 20 minutes every 2 hours, or as directed. ?? Elevate the area above the level of your heart. Elevation can help reduce swelling and pain, especially in your joints. Elevate the area as often as possible. Follow up with your healthcare provider as directed: You may need ongoing tests or treatment. [place] your questions so you remember to ask them during your visits. ?? Copyright [employer] 2019 Information is for End User's use only and may not be sold, redistributed or otherwise used for commercial purposes. All illustrations and images included in CareNotes?? are the copyrighted property of [employer]. or [employer] The above information is an first aid nurse only. It is not intended as medical advice for individual conditions or treatments. Talk to your doctor, nurse or pharmacist before following any medical regimen to see if it is safe and effective for you. documented in this encounter Medications at Time of Discharge Medication Sig Dispensed Refills Start Date End Date hydroxychloroquine (PLAQUENIL) 200 MG tablet Take 200 mg by mouth once daily 09/25/2018 nitrofurantoin monohyd macro crystals (MACROBID) 100 MG capsule Take 1 capsule by mouth 2 times daily 10 capsule 08/22/2017 08/22/2018 predniSONE (DELTASONE) 5 MG tablet Take 15 mg by mouth once daily 02/25/2019 documented as of this encounter ED Notes * Carlton Choi RN - 07/05/2018 6:22 PM CDT Patient dc home follow up explained, questions answered. Pt verbalizes understanding. Patient ambulated from ER without difficulty with ride. * Carlton Choi RN - 07/05/2018 5:08 PM CDT ER MD at bedside. * Cristofer Dempsey MD - 07/05/2018 4:47 PM CDT Provider contact with the patient: 07/05/2018 4:47 PM Carito Rausch [id number] [facility] EMERGENCY DEPARTMENT History Chief Complaint Patient presents with ??? GENERALIZED BODY ACHES States she has fibromyalgia and lupus. PCP states he wants patient to be evaluated by Neuro due to symptoms of generalized pain. HPI Comments: Carito Rausch is a 28 year old female with history of Lupus and Fibromyalgia presenting to the ED with a chief complaint of generalized body aches, onset of one year ago. Patient hasno acute or subacute complaints but presents due to the despair of being unable to participate in life activities as she'd like to. Patient states she was placed on Prednisone in May of 2017. PCP: Huseyin Dangelo MD Past Medical History: Diagnosis Date ??? Fibromyalgia ??? Lupus No past surgical history on file. No family history on file. Social History Social History ??? Marital status: Single Spouse name: N/A ??? Number of children: N/A ??? Years of education: N/A Occupational History ??? Not on file. Social History Main Topics ??? Smoking status: Current Every Day Smoker Packs/day: 0.25 Types: Cigarettes ??? Smokeless tobacco: Never Used ??? Alcohol use Yes Comment: socailly ??? Drug use: No ??? Sexual activity: Not on file Other Topics Concern ??? Not on file Social History Narrative Allergies Allergen Reactions ??? Methylprednisolone Other Syncope Review of Systems Review of Systems Constitutional: Negative for chills and fever. HENT: Negative for sore throat. Eyes: Negative. Respiratory: Negative for cough and shortness of breath. Cardiovascular: Negative for chest pain and leg swelling. Gastrointestinal: Negative for abdominal pain, constipation, diarrhea, nausea and vomiting. Genitourinary: Negative. Negative for dysuria and frequency. Musculoskeletal: Positive for myalgias. Negative for neck pain. Skin: Negative for rash. Neurological: Negative for dizziness, focal weakness and headaches. Psychiatric/Behavioral: Negative. All other systems reviewed and are negative. Physical Exam Blood pressure 127/84, pulse 77, temperature 98.2 ??F (36.8 ??C), resp. rate 16, height 1.524 m (5'), weight 65.8 kg (145 lb), last menstrual period 06/19/2018, SpO2 100 %, unknown if currently . Physical Exam Constitutional: She is oriented to person, place, and time. She appears well- developed and well-nourished. No distress. HENT: Head: Normocephalic and atraumatic. Eyes: Conjunctivae and EOM are normal. Right eye exhibits no discharge. Left eye exhibits no discharge. Neck: Trachea normal and normal range of motion. Neck supple. Cardiovascular: Normal rate and regular rhythm. Exam reveals no gallop and no friction rub. No murmur heard. Pulmonary/Chest: Effort normal and breath sounds normal. No stridor. No respiratory distress. She has no wheezes. She has no rales. She exhibits no tenderness. Abdominal: Soft. There is no tenderness. There is no rebound and no guarding. Musculoskeletal: Normal range of motion. She exhibits no edema or tenderness. No calf tenderness. No pedal edema. Neurological: She is alert and oriented to person, place, and time. She has normal reflexes. No cranial nerve deficit. She exhibits normal muscle tone. Coordination normal. +2/+3 DTR reflexes bilaterally; no clonus Skin: Skin is warm and dry. She is not diaphoretic. No erythema. No pallor. Psychiatric: She has a normal mood and affect. Her behavior is normal. Judgment and thought contentnormal. Nursing note and vitals reviewed. Medications Current Outpatient Prescriptions Medication Sig Dispense Refill ??? hydroxychloroquine (PLAQUENIL) 200 MG tablet Take 200 mg by mouth once daily ??? nitrofurantoin monohyd macro crystals (MACROBID) 100 MG capsule Take 1 capsule by mouth 2 timesdaily 10 capsule 0 ??? predniSONE (DELTASONE) 5 MG tablet Take 10 mg by mouth Procedures Procedures ECG Interpretation ECG Interpretation Lab Interpretation Oxygen Saturation Interpretation The oxygen saturation level is: 100%. The patient was on Room Air for the saturation measurement. Measurement frequency: Spot Check. Oxygen saturation interpretation is Normal. Intervention(s) used: None. Hospital Encounter on 07/05/18 CBC W AUTO DIFFERENTIAL Result Value Ref Range WBC 8.1 4.4 - 10.7 x10E9/L WBC Corrected x10E9/L RBC 4.25 3.80 - 5.20 x10E12/L Hemoglobin 10.1 (L) 12.0 - 15.6 gm/dL Hematocrit 33.4 (L) 35.9 - 45.5 % MCV 78.6 (L) 80.7 - 98.3 fl MCH 23.8 (L) 26.7 - 34.0 pg MCHC 30.2 (L) 30.8 - 35.9 gm/dL Platelet Count 371 153 - 416 x10E9/L RDW-CV 18.4 (H) 12.1 - 14.9 % MPV 10.0 9.4 - 12.9 fl Neutrophils % 81.6 (H) 44.0 - 73.0 % Lymphocytes % 13.8 (L) 20.0 - 43.0 % Monocytes % 3.6 (L) 5.0 - 13.0 % Eosinophils % 0.4 0.0 - 6.0 % Basophils % 0.2 0.0 - 2.0 % Immature Granulocytes 0.4 0 - 1 % Neutrophil Absolute 6.58 2.01 - 7.14 x10E9/L Lymphocytes Absolute 1.11 1.07 - 3.94 x10E9/L Monocytes Absolute 0.29 0.26 - 1.07 x10E9/L Eosinophils Absolute 0.03 0 - 0.47 x10E9/L Basophils Absolute 0.02 0 - 0.08 x10E9/L Immature Granulocytes Absolute 0.03 0.00 - 0.06 x10E9/L nRBC Auto 0 /100 WBC COMPREHENSIVE METABOLIC PANEL Result Value Ref Range Glucose 97 74 - 106 mg/dL Sodium 136 136 - 145 mmol/L Potassium 4.1 3.5 - 5.1 mmol/L Chloride 104 98 - 107 mmol/L CO2 23 23 - 31 mmol/L Calcium 9.4 8.4 - 10.2 mg/dL Anion Gap 9 8 - 16 mmol/L BUN 13 7 - 18.7 mg/dL Creatinine 0.66 0.55 - 1.02 mg/dL Alkaline Phosphatase 56 40 - 150 U/L ALT 12 (L) 13 - 61 U/L AST 24 5 - 34 U/L Protein Total 7.9 6.4 - 8.3 gm/dL Albumin 4.0 3.5 - 5.2 gm/dL Bilirubin Total 0.2 0.2 - 1.0 mg/dL eGFR by MDRD >60 >60 mL/min/1.73m2 eGFR by MDRD >60 >60 mL/min/1.73m2 HCG URINE QUAL POCT NOTIFICATION Result Value Ref Range Comment Notification Label Only - See Separate Report URINALYSIS REFLEX MICROSCOPIC REFLEX CULTURE Result Value Ref Range Color UA Yellow Straw, Yellow Clarity UA Clear Clear Glucose UA Negative Negative Bilirubin UA Negative Negative Ketone UA Negative Negative Specific [place] UA 1.018 1.005 - 1.030 Blood UA Negative Negative pH UA 8.0 5.0 - 8.0 pH Protein UA Negative Negative Urobilinogen UA Negative Negative mg/dL Nitrite UA Negative Negative Leukocyte UA Negative Negative Urine Microscopy Urine microscopy not indicated Reflex Status Culture not indicated CK BLOOD Result Value Ref Range CK 23 (L) 35 - 232 U/L HCG URINE QUALITATIVE - POCT (IP) INTERFACED Result Value Ref Range HCG Qual Urine Negative Negative No orders to display Progress Notes 4:47 PM: Saw and evaluated patient. Answered all patient's questions and concerns. 5:58 PM: Patient with normal CK. Will discharge.At this present time, a medical screening exam has been completed. It is determined that the patient does not have an emergency medical condition and is stable for discharge. 5:58 PM Rechecked pt -patient resting comfortably and feeling better. I discussed the results of diagnostic studies, my clinical impression, and the plan for further treatment with the patient. Patient agrees with plan and discharge at this time, all questions addressed. At this present time, a medical screening exam has been completed. It is determined that the patient does not have an emergency medical condition and is stable for discharge. I have given the patient instructions regarding her diagnosis, expectations, follow up, and return precautions. I explained to the patient that emergent conditions may arise and to return to the ER for new, worsening, or any persistent conditions. I've explained the importance of following up with her Primary Care Physician-(or the referral physician listed below) as instructed. The patient verbalized understanding of the discharge instructions. Vitals prior to discharge: Blood pressure 127/84, pulse 77, temperature 98.2 ??F (36.8 ??C), resp. rate 16, height 1.524 m (5'), weight 65.8 kg (145 lb), last menstrual period 06/19/2018, SpO2 100 %, unknown if currently . ED Course ED Course Medical Decision Making I have reviewed the: Previous Chart, Nursing Notes, Vitals. I have interpreted the following results: Labs, Oxygen Saturation. I have discussed the case with PCP (Dr. Fabian for Dr. Vazquez). Orders Placed This Encounter ??? CBC W AUTO DIFFERENTIAL ??? COMPREHENSIVE METABOLIC PANEL ??? HCG URINE QUAL POCT NOTIFICATION ??? URINALYSIS REFLEX MICROSCOPIC REFLEX CULTURE ??? CK BLOOD Final diagnoses: Myalgia (Primary) New Medications: Discharge Medication List as of 07/05/2018 5:59 PM I have advised the patient to follow-up with: Huseyin Dangelo MD [address] [place] [address] In 1 week Deniz Booker MD [address] [facility] [address] [facility] [address] Call in 3 days for second opinion on your diagnosis of Lupus [facility] Emergency Department [address] [facility] [phone] If symptoms worsen--fever, other acute problem Disposition: Discharged By signing my name below, I, Maria C Wu, attest that this documentation has been prepared under thedirection and in the presence of Dr. Dempsey. Electronically Signed: Karlie Guerrero. 07/05/2018 10:28 PM I, Dr. Dempsey, personally performed the services described in this documentation. All medical record entries made by the scribes were at my direction and in my presence. I have reviewed the chart anddischarge instructions and agree that the record reflects my personal performance and is accurate and complete. Cristofer Dempsey MD, 07/05/2018 10:28 PM * Carlton Choi RN - 07/05/2018 4:35 PM CDT Patient presents to ED with report of generalized body pain and aches and states she was diagnosed with Lupus and fibromyalgia a month ago and is now on prednisone but is not having any relief. Patient states does see a analytics manager but feels she needs to have Xrays and an MRI to figure out what is wrong patient is ambulatory in ED and able to move all extremities. documented in this encounter Plan of Treatment Not on file documented as of this encounter Procedures Procedure Name Priority Date/Time Associated Diagnosis Comments CBC W AUTO DIFFERENTIAL STAT 07/05/2018 4:10 PM CDT HCG URINE QUALITATIVE - POCT (IP) INTERFACED Routine 07/05/2018 3:58 PM CDT URINALYSIS REFLEX MICROSCOPIC REFLEX CULTURE STAT 07/05/2018 3:54 PM CDT COMPREHENSIVE METABOLIC PANEL STAT 07/05/2018 3:49 PM CDT CK BLOOD STAT 07/05/2018 3:49 PM CDT HCG URINE QUAL POCT NOTIFICATION STAT 07/05/2018 3:40 PM CDT documented in this encounter Results * (ABNORMAL) CBC W AUTO DIFFERENTIAL (07/05/2018 4:10 PM CDT) Pathologist [facility] WBC 8.1 4.4 - 10.7 x10E9/L 07/05/2018 4:24 PM CDT [facility] WBC Corrected x10E9/L 07/05/2018 4:24 PM CDT [facility] RBC 4.25 3.80 - 5.20 x10E12/L 07/05/2018 4:24 PM CDT [facility] Hemoglobin 10.1(L) 12.0 - 15.6 gm/dL 07/05/2018 4:24 PM CDT [facility] Hematocrit 33.4(L) 35.9 - 45.5 % 07/05/2018 4:24 PM CDT [facility] MCV 78.6(L) 80.7 - 98.3 fl 07/05/2018 4:24 PM CDT [facility] MCH 23.8(L) 26.7 - 34.0 pg 07/05/2018 4:24 PM CDT [facility] MCHC 30.2(L) 30.8 - 35.9 gm/dL 07/05/2018 4:24 PM CDT [facility] Platelet Count 371 153 - 416 x10E9/L 07/05/2018 4:24 PM CDT [facility] RDW-CV 18.4(H) 12.1 - 14.9 % 07/05/2018 4:24 PM CDT [facility] MPV 10.0 9.4 - 12.9 fl 07/05/2018 4:24 PM CDT [facility] Neutrophils % 81.6(H) 44.0 - 73.0 % 07/05/2018 4:24 PM CDT [facility] Lymphocytes % 13.8(L) 20.0 - 43.0 % 07/05/2018 4:24 PM CDT [facility] Monocytes % 3.6(L) 5.0 - 13.0 % 07/05/2018 4:24 PM CDT [facility] Eosinophils % 0.4 0.0 - 6.0 % 07/05/2018 4:24 PM CDT [facility] Basophils % 0.2 0.0 - 2.0 % 07/05/2018 4:24 PM CDT [facility] Immature Granulocytes 0.4 0 - 1 % 07/05/2018 4:24 PM CDT [facility] Neutrophil Absolute 6.58 2.01 - 7.14 x10E9/L 07/05/2018 4:24 PM CDT [facility] Lymphocytes Absolute 1.11 1.07 - 3.94 x10E9/L 07/05/2018 4:24 PM CDT [facility] Monocytes Absolute 0.29 0.26 - 1.07 x10E9/L 07/05/2018 4:24 PM CDT [facility] Eosinophils Absolute 0.03 0 - 0.47 x10E9/L 07/05/2018 4:24 PM CDT [facility] Basophils Absolute 0.02 0 - 0.08 x10E9/L 07/05/2018 4:24 PM CDT [facility] Immature Granulocytes Absolute 0.03 0.00 - 0.06 x10E9/L 07/05/2018 4:24 PM CDT [facility] nRBC Auto 0 /100 WBC 07/05/2018 4:24 PM CDT [facility] Blood BLOOD SPECIMEN / Unknown Venipuncture / Unknown 07/05/2018 4:10 PM CDT 07/05/2018 4:17 PM CDT Cristofer Dempsey MD LAB - HEMATOLOGY ORD ERABLES [facility] [address] [place], [place] [id number] * HCG URINE QUALITATIVE - POCT (IP) INTERFACED (07/05/2018 3:58 PM CDT) HCG Qual Urine Negative Negative 07/05/2018 4:01 PM CDT [facility] Urine URINE / Unknown 07/05/2018 3 :58 PM CDT 07/05/2018 4:01 PM CDT Provider Unknown LAB - POINT OF CARE ORDERABLES Performing Organization Address [facility]/ZIP Co de Phone Number [facility] [address] [place] [address] * URINALYSIS REFLEX MICROSCOPIC REFLEX CULTURE (07/05/2018 3:54 PM CDT) Color UA Yellow Straw, Yellow 07/05/2018 4:05 PM CDT [facility] Clarity UA Clear Clear 07/05/2018 4:05 PM CDT [facility] Glucose UA Negative Negative 07/05/2018 4:05 PM T [facility] Bilirubin UA Negative Negative 07/05/2018 4:05 PM CDT [facility] Ketone UA Negative Negative 07/05/2018 4:05 PM CDT [facility] Specific [place] UA 1.018 1.005 - 1.030 07/05/2018 4:05 PM CDT [facility] Blood UA Negative Negative 07/05/2018 4:05 PM CDT [facility] pH UA 8.0 5.0 - 8.0 pH 07/05/2018 4:05 PM CDT [facility] Protein UA Negative Negative 07/05/2018 4:05 PM CDT [facility] Urobilinogen UA Negative Negative mg/dL 07/05/2018 4:05 PM CDT [facility] Nitrite UA Negative Negative 07/05/2018 4:05 PM T [facility] Leukocyte UA Negative Negative 07/05/2018 4:05 PM T [facility] Urine Microscopy Urine microscopy not indicated 07/05/2018 4:05 PM T [facility] Reflex Status Culture not indicated 07/05/2018 4:05 PM T [facility] Urine URINE SPECIMEN COLLECTION, CATHETERIZED / Unknown Collection / Unknown 07/05/2018 3:54 PM CDT 07/05/2018 4:00 PM CDT Narrative [facility] - 07/05/2018 4:05 PM CDT Cristofer Dempsey MD LAB - URINALYSIS ORD ERABLES Performing Organization Address City/[facility]/ZIP Co de Phone Number [facility] [address] [place] [address] * (ABNORMAL) CK BLOOD (07/05/2018 3:49 PM CDT) CK 23(L) 35 - 232 U/L 07/05/2018 5:44 PM CDT [facility] Blood BLOOD SPECIMEN / Unknown Venipuncture / Unknown 07/05/2018 3:49 PM CDT 07/05/2018 3:51 PM CDT Cristofer Dempsey MD LAB - CHEMISTRY [place]REG[place] RIVERA [facility] [address] [place] [address] * (ABNORMAL) COMPREHENSIVE METABOLIC PANEL (07/05/2018 3:49 PM CDT) Pathologist [facility] Glucose 97 74 - 106 mg/dL 07/05/2018 4:12 PM CDT [facility] Sodium 136 136 - 145 mmol/L 07/05/2018 4:12 PM CDT [facility] Potassium 4.1 3.5 - 5.1 mmol/L 07/05/2018 4:12 PM CDT [facility] Chloride 104 98 - 107 mmol/L 07/05/2018 4:12 PM CDT [facility] CO2 23 23 - 31 mmol/L 07/05/2018 4:12 PM CDT [facility] Calcium 9.4 8.4 - 10.2 mg/dL 07/05/2018 4:12 PM CDT [facility] Anion Gap 9 8 - 16 mmol/L 07/05/2018 4:12 PM CDT [facility] BUN 13 7 - 18.7 mg/dL 07/05/2018 4:12 PM CDT [facility] Creatinine 0.66 0.55 - 1.02 mg/dL 07/05/2018 4:12 PM CDT [facility] Alkaline Phosphatase 56 40 - 150 U/L 07/05/2018 4:12 PM CDT [facility] ALT 12(L) 13 - 61 U/L 07/05/2018 4:12 PM CDT [facility] AST 24 5 - 34 U/L 07/05/2018 4:12 PM CDT [facility] Protein Total 7.9 6.4 - 8.3 gm/dL 07/05/2018 4:12 PM CDT [facility] Albumin 4.0 3.5 - 5.2 gm/dL 07/05/2018 4:12 PM CDT [facility] Bilirubin Total 0.2 0.2 - 1.0 mg/dL 07/05/2018 4:12 PM CDT [facility] eGFR by MDRD >60 >60 mL/min/1.7 3m2 07/05/2018 4:12 PM CDT [facility] eGFR by MDRD >60 >60 mL/min/1.7 3m2 07/05/2018 4:12 PM CDT [facility] Blood BLOOD SPECIMEN / Unknown Venipuncture / Unknown 07/05/2018 3:49 PM CDT 07/05/2018 3:51 PM CDT Narrative [facility] - 07/05/2018 4:12 PM CDT Attention clinician: BUN Reference Range has changed. Cristofer Dempsey MD LAB - CHEMISTRY ORDE RABLES Performing Organization Address City/[facility]/ZIP Co de Phone Number [facility] [address] [place] [address] * HCG URINE QUAL POCT NOTIFICATION (07/05/2018 3:40 PM CDT) Comment Notification Label Only - See Separate Report 07/05/2018 5:00 PM CDT [facility] Urine URINE / Unknown 07/05/2018 3 :40 PM CDT 07/05/2018 3:40 PM CDT Cristofer Dempsey MD LAB - URINALYSIS ORD ERABLES [facility] [address] [place] [address] documented in this encounter Visit Diagnoses Diagnosis Myalgia- Primary Mylagia and myositis, unspecified documented in this encounter Care Teams Obstetrics Gyn Physician Relationship Specialty Start Date End Date Huseyin Dangelo MD PCP - General Family Medicine 08/22/17 06/18/19 documented as of this encounter
--- OUTSIDE RECORDS SUMMARY | 2024-02-24 19:40 | XMS_ITS | Encounter Summary ---
Author Organization [facility] Address [address] [place] [address] Care Team Providers Care Security Director Name Role Phone Unavailable Primary Care Provider Unavailabl e Reason for Visit * Reason Comments Dizziness and vomiting since y esterday Vaginal Bleeding Bleeding vaginally y esterday, reports blood was spotting, then gushing , and now has stopped completly. Had 2 negative and 1 positive test yesterday Encounter Details Date Type Department Care Team (Late st Contact Info) Description 08/07/2017 10:43 AM CDT - 08/07/2017 10:48 AM CDT Emergency ER at [place] [id number] Acute pain of right knee Discharge Disposition: Left Against Medical Advice/Discontinued Care [...] Sign Reading Time Taken Comments Blood Pressure 155/104 08/07/2017 10:05 AM CDT Pulse 74 08/07/2017 10:05 AM CDT Temperature 36.8 ??C (98.2 ??F) 08/07/2017 10:05 AM C DT Respiratory Rate 20 08/07/2017 10:05 AM CDT Oxygen Saturation 100% 08/07/2017 10:05 AM CDT Inhaled Oxygen Concentration - - Weight 68 kg (150 lb) 08/07/2017 10:05 AM CDT Height 162.6 cm (5' 4 ) 08/07/2017 10:05 AM CDT Body Mass Index 25.75 08/07/2017 10:05 AM CDT documented in this encounter ED Notes * Lesly Medina, RN - 08/07/2017 10:46 AM CDT Patient reports that she received a phone call from her doctor's office while in waiting room and they had an opening for her. Patient LWBS after triage to go to doctor's appointment. documented in this encounter Plan of Treatment Not on file documented as of this encounter Procedures Procedure Name Priority Date/Time Associated Diagnosis Comments HCG URINE QUALITATIVE - POCT (IP) INTERFACED Routine 08/07/2017 10:38 AM CDT HCG URINE QUAL POCT NOTIFICATION STAT 08/07/2017 10:08 AM CDT URINALYSIS REFLEX MICROSCOPIC REFLEX CULTURE STAT 08/07/2017 10:08 AM CDT documented in this encounter Results * HCG URINE QUALITATIVE - POCT (IP) INTERFACED (08/07/2017 10:38 AM CDT) HCG Qual Urine Negative Negative 08/07/2017 10:43 AM CDT [facility] Urine URINE / Unknown 08/07/2017 1 0:38 AM CDT 08/07/2017 10:43 AM CDT Provider Unknown LAB - POINT OF CARE ORDERABLES [facility] [address] [place] [address] * HCG URINE QUAL POCT NOTIFICATION (08/07/2017 10:08 AM CDT) Comment Notification Label Only - See Separate Report 08/07/2017 12:00 PM CDT [facility] Urine URINE / Unknown 08/07/2017 1 0:08 AM CDT 08/07/2017 10:08 AM CDT Huseyin Doll MD LAB - URINALYSIS ORD ERABLES Performing Organization Address City/[facility]/ZIP Co de Phone Number [facility] [address] [place] [phone] * URINALYSIS REFLEX MICROSCOPIC REFLEX CULTURE (08/07/2017 10:08 AM CDT) Color UA Yellow Straw, Yellow 08/07/2017 10:44 AM CDT [facility] Clarity UA Clear Clear 08/07/2017 10:44 AM CDT [facility] Glucose UA Negative Negative 08/07/2017 10:44 AM CDT [facility] Bilirubin UA Negative Negative 08/07/2017 10:44 AM CDT [facility] Ketone UA Negative Negative 08/07/2017 10:44 AM T [facility] Specific [place] UA 1.013 1.005 - 1.030 08/07/2017 10:44 AM CDT [facility] Blood UA Negative Negative 08/07/2017 10:[address] [facility] pH UA 6.0 5.0 - 8.0 pH 08/07/2017 10:[address] [facility] Protein UA Negative Negative 08/07/2017 10:[address] Urobilinogen UA Negative Negative mg/dL 08/07/2017 10:44 AM T [facility] Nitrite UA Negative Negative 08/07/2017 10:44 AM T [facility] Leukocyte UA Negative Negative 08/07/2017 10:[address] [facility] Urine Microscopy Urine microscopy not indicated 08/07/2017 10:[address] [facility] Reflex Status Culture not indicated 08/07/2017 10:[address] [facility] Urine URINE SPECIMEN OBTAINED BY CLEAN CATCH PROCEDURE / Unknown Collection / Unknown 08/07/2017 10:08 AM CDT 08/07/2017 10:39 AM CDT Narrative [facility] - 08/07/2017 10:44 AM CDT Huseyin Doll MD LAB - URINALYSIS ORD ERABLES [facility] [address] [place] [address] documented in this encounter Visit Diagnoses Diagnosis Acute pain of right knee documented in this encounter Administered Medications Inactive Administered Medications - up to 3 most recent administrations Medication Order MAR Action Action Date Dose Rate Site 0.9% NaCl injection 1-10 mL 1-10 mL, Intracatheter, PRN, Other, peripheral line flush, Starting on Sun08/07/17 at 1007, Until Sun08/07/17 at 1149, Flush peripheral IV catheter with 1-10 mL of normal saline before and after medications and prn to clear blood from the line or to verify patency. 0.9% NaCl injection 3 mL 3 mL, Intracatheter, EVERY 8 HOURS, 1095 doses, First dose on Sun08/07/17 at 1400, Last dose on Sun08/07/18 at 0600, Flush peripheral IV catheter with 3 mL of normal saline every 8 hours. documented in this encounter Active and Recently Administered Medications Times are shown in CDT. Scheduled Medication Order 08/05/2017 08/06/2017 08/07/2017 0.9% NaCl injection 3 mL(Linked Group 1) 3 mL, Intracatheter, EVERY 8 HOURS, 1095 doses, First dose on Sun08/07/17 at 1400, Last dose on Sun08/07/18 at 0600, Flush peripheral IV catheter with 3 mL of normal saline every 8 hours. PRN Medication Order 08/05/2017 08/06/2017 08/07/2017 0.9% NaCl injection 1-10 mL(Linked Group 1) 1-10 mL, Intracatheter, PRN, Other, peripheral line flush, Starting on Sun08/07/17 at 1007, Until Sun08/07/17 at 1149, Flush peripheral IV catheter with 1-10 mL of normal saline before and after medications and prn to clear blood from the line or to verify patency. Linked Groups Order Group 1: SALINE LOCK, INSERT AND MAINTAIN (CANCELED) Routine, CONTINUOUS, Starting on Sun08/07/17 at 1015, Until Specified, New collection And 0.9% NaCl injection 3 mLJump to med 3 mL, Intracatheter, EVERY 8 HOURS, 1095 doses, First dose on Sun08/07/17 at 1400, Last dose on Sun08/07/18 at 0600, Flush peripheral IV catheter with 3 mL of normal saline every 8 hours. And 0.9% NaCl injection 1-10 mLJump to med 1-10 mL, Intracatheter, PRN, Other, peripheral line flush, Starting on Sun08/07/17 at 1007, Until Sun08/07/17 at 1149, Flush peripheral IV catheter with 1-10 mL of normal saline before and after medications and prn to clear blood from the line or to verify patency. documented in this encounter
--- OUTSIDE RECORDS SUMMARY | 2024-02-24 19:40 | XMS_ITS | Encounter Summary ---
Author Organization [facility] Address [address] [place] [address] Care Team Providers Care Safe And Vault Mechanic Name Role Phone Huseyin Dangelo MD Primary Care Provider [phone] Encounter Details Date Type Department Care Team (Latest Contact Info) Description 10/08/2018 11:05 AM CDT - 10/08/2018 11:17 AM CDT Hospital Encounter [facility] - Radiology [address] [place] [address] Ashlee Magallon MD [address] [facility] [address] [place] [address] Discharge Disposition: Home or Self Care Social [...] 3 times daily as needed for Anxiety diclofenac potassium (CATAFLAM) 50 MG tablet Take 50 mg by mouth 3 times daily 10/24/2018 leflunomide (ARAVA) 10 MG tablet Take 10 mg by mouth once daily 01/29/2019 metroNIDAZOLE (FLAGYL) 500 MG tablet Take 1 tablet by mouth 2 times daily for 7 days 20 tablet 10/02/2018 10/09/2018 omeprazole (PRILOSEC) 20 MG capsule Take 20 mg by mouth daily before breakfast 03/06/2019 predniSONE (DELTASONE) 5 MG tablet Take 15 mg by mouth once daily 02/25/2019 documented as of this encounter Plan of Treatment Not on file documented as of this encounter Procedures Procedure Name Priority Date/Time Associated Diagnosis Comments XR CERVICAL SPINE 6VW OR MORE Routine 10/08/2018 11:50 AM CDT Polyarthralgia documented in this encounter Results * XR CERVICAL SPINE 6VW OR MORE [...] documented in this encounter Visit Diagnoses Diagnosis Polyarthralgia Pain in joint, multiple sites documented in this encounter Care Teams Safe And Vault Mechanic Relationship Specialty Start Date End Date Huseyin Dangelo MD PCP - General Family Medicine 08/22/17 06/18/19 documented as of this encounter
--- OUTSIDE RECORDS SUMMARY | 2024-02-24 19:40 | XMS_ITS | Encounter Summary ---
Author Organization [facility] Address [address] [place] [address] Care Team Providers Care Employee Communications Specialist Name Role Phone Huseyin Dangelo MD Primary Care Provider [phone] Reason for Visit * Reason Comments Pain Muscle Patient comes to ED today for generalized pain and swelling to B.hands, L.neck and B.knees x1 month that is getting progressively worse. Patient notes decrease in ROM r/t to swelling and pain. Patient notes h/o L2-L5 and S1 buldging discs and lupus. RN notes 2+ radial and pedal pulses, digits warm and moveable, cap refill <3secs. Swelling Encounter Details Date Type Department Care Team (Late st Contact Info) Description 09/25/2018 10:57 AM CDT - 09/25/2018 12:53 PM CDT Emergency [facility] [address] [place] [address] Yaquelin Carrion MD [address] [facility] [place] [id number] Myalgia Discharge Disposition: Home or Self Care Social [...] Sign Reading Time Taken Comments Blood Pressure 138/90 09/25/2018 12:21 PM CDT Pulse 87 09/25/2018 12:21 PM CDT Temperature 36.7 ??C (98 ??F) 09/25/2018 9:49 AM CDT Respiratory Rate 18 09/25/2018 12:21 PM CDT Oxygen Saturation 100% 09/25/2018 12:21 PM CDT Inhaled Oxygen Concentration - - Weight 63.5 kg (140 lb) 09/25/2018 9:49 AM CDT Height 157.5 cm (5' 2 ) 09/25/2018 9:49 AM CDT Body Mass Index 25.61 09/25/2018 9:49 AM CDT documented in this encounter Discharge Instructions * Discharge Instructions* Mario Painter MD - 09/25/2018 12:44 PM CDT Musculoskeletal Pain WHAT YOU NEED TO KNOW: Muscle pain can be dull, achy, or sharp. You may have pain and tenderness to the touch as well. It can occur anywhere on your body and is often brought on by exercise. Muscle pain may occur from an injury, such as a sprain, tendonitis, or bone fracture. Muscle pain can also be the result of medicalconditions, such as polymyositis, fibromyalgia, and connective tissue disorders. DISCHARGE INSTRUCTIONS: Self care: ?? Rest as directed and avoid activity that causes pain. You may be able to return to normal activity when you can move without pain. Follow directions for rest and activity. You are at risk for injury for 3 weeks after your symptoms go away. ?? Ice your painful muscle area to decrease pain and swelling. Use an ice pack, or put ice in a plastic bag and cover it with a towel. Always put a cloth between the ice and your skin. Apply the ice as often as directed for the first 24 to 48 hours. ?? Compression with a splint, brace, or elastic bandage helps decrease pain and swelling. This may be needed for muscle pain in arms or legs. A splint, brace, or bandage will also help protect the painful area when you move around. ?? Elevate a painful arm or leg to reduce swelling and pain. Elevate your limb while you are sitting or lying down. Prop a painful leg on pillows to keep it above the level of your heart. Medicines: ?? NSAIDs help decrease swelling and pain or fever. This medicine is available with or without a doctor's order. NSAIDs can cause stomach bleeding or kidney problems in certain people. If you take blood thinner medicine, always ask your healthcare provider if NSAIDs are safe for you. Always read the medicine label and follow directions. ?? Acetaminophen is used to decrease pain. It is available without a doctor's order. Ask your healthcare provider how much to take and when to take it. Follow directions. Acetaminophen can cause liver damage if not taken correctly. Do not take more than one medicine that contains acetaminophen unless directed. ?? Muscle relaxers help relax your muscles to decrease pain and muscle spasms. ?? Steroids may be given to decrease redness, pain, and swelling. ?? Take your medicine as directed. Contact your healthcare provider if you think your medicine is not helping or if you have side effects. Tell him if you are allergic to any medicine. Keep a list ofthe medicines, vitamins, and herbs you take. Include the amounts, and when and why you take them. Bring the list or the pill bottles to follow-up visits. Carry your medicine list with you in case of a n emergency. Follow up with your healthcare provider as directed: You may need more tests to help healthcare providers find the cause of your muscle pain. You may need physical therapy to learn muscle strengthening exercises. Write down your questions so you remember to ask them during your visits. Contact your healthcare provider if: ?? You have a fever. ?? You have trouble sleeping because of your pain. ?? Your painful area becomes more tender, red, and warm to the touch. ?? You have decreased movement of the painful area. ?? You have questions or concerns about your condition or care. Return to the emergency department if: ?? You have increased severe pain when you move the painful muscle area. ?? You lose feeling in your painful muscle area. ?? You have new or worse swelling in the painful area. Your skin may feel tight. ?? You have increased muscle pain or pain that does not improve with treatment. ?? Copyright [employer] 2019 Information is for End User's use only and may not be sold, redistributed or otherwise used for commercial purposes. All illustrations and images included in CareNotes?? are the copyrighted property of [employer], [employer]. or [employer] The above information is an financial aid director only. It is not intended as medical advice for individual conditions or treatments. Talk to your doctor, nurse or pharmacist before following any medical regimen to see if it is safe and effective for you. Autoimmune Disease WHAT YOU NEED TO KNOW: What is an autoimmune disease? An autoimmune disease causes your body's immune [...] organs, blood, your digestive system, and connective tissues.There are many autoimmune diseases, such as lupus, celiac disease, and diabetes. What increases my risk for an autoimmune disease? ?? A family history of an autoimmune disease ?? Female gender ? Exposure to sunlight or certain chemicals ?? Certain medicines, such as some antibiotics and cholesterol medicines ?? A viral or bacterial infection What are the signs and symptoms of an autoimmune disease? Signs and symptoms depend on the type of autoimmune disease and the body systems affected. Symptoms may be mild or severe, and may come and go. You may have many of the following if you have an autoimmune disease that affects more than one body system: ?? Red, warm, painful, swollen area or joints ?? Joint pain, stiffness, or reduced range of motion ?? Tiredness, weakness, or muscle pain ?? Fever ?? Weight gain or loss, or no appetite ?? Diarrhea, stomach cramps, or bloating ?? Hair loss ?? Rash or changes in skin color ?? Red, inflamed eyes How is an autoimmune disease diagnosed? ?? Blood tests are used to measure the amount of inflammation in your body or to find specific antibodies. The tests may also show signs of infection. ?? An x-ray, CT, or MRI may be used to check your joints or organs for damage. An x-ray may also beused to check your heart or other organs that may be affected. Do not enter the MRI room with any metal. Metal can cause serious damage. Tell the healthcare provider if you have any metal in or on your body. ?? A biopsy is a procedure used to take a sample of joint fluid or tissues. The sample may be tested for infection, inflammation, or other causes of your symptoms. How is an autoimmune disease treated? ?? Medicines may be given to replace thyroid hormones, insulin, or other hormones your body is not producing. You may also be given medicine to reduce your immune system's ability to attack healthy cells or to decrease inflammation in muscles or joints. You may need to use topical creams or lotionsto control a rash or other symptoms that [...] liver damage ifnot taken correctly. ?? Steroids help reduce swelling and relieve pain. ?? A blood transfusion may be needed if your blood is affected. What can I do to manage my autoimmune disease? ?? Rest as needed. Talk to your [...] relaxation, deep breathing, or listening to music. What can I do to manage symptoms during a flare? A flare means something triggered your symptoms. [...] Elevate the area as often as possible. When should I seek immediate care? ?? You have severe pain or swelling. ?? You have a fever along with stiffness and pain. ?? You have blood in your urine, bowel movement, or vomit. ?? You have severe abdominal pain. ?? You are confused or feel dizzy or faint. When should I contact my healthcare provider? ?? You have new symptoms. ?? You are urinating less than usual. ?? You are bleeding from your nose or gums. ?? You bruise easily. ?? You have questions or concerns about your condition or care. CARE AGREEMENT: You have the right to help plan your care. Learn about your health condition and how it may be treated. Discuss treatment options with your healthcare providers to decide what care you want to receive. You always have the right to refuse treatment. The above information is an financial aid director only. It is not intended as medical advice for individual conditions or treatments. Talk to your doctor, nurse or pharmacist before following any medical regimen to see if it is safe and effective for you. ?? Copyright [employer] 2019 Information is for End User's use only and may not be sold, redistributed or otherwise used for commercial purposes. All illustrations and images included in CareNotes?? are the copyrighted property of [employer]. or [employer] documented in this encounter Medications at Time of Discharge Medication Sig Dispensed Refills Start Date End Date ALPRAZolam (XANAX) 0.25 MG tablet Take 0.25 mg by mouth 3 times daily as needed for Anxiety celecoxib (CELEBREX) 100 MG capsule Take 1 capsule by mouth 2 times daily 60 capsule 09/25/2018 10/01/2018 leflunomide (ARAVA) 10 MG tablet Take 10 mg by mouth once daily 01/29/2019 omeprazole (PRILOSEC) 20 MG capsule Take 20 mg by mouth daily before breakfast 03/06/2019 predniSONE (DELTASONE) 5 MG tablet Take 15 mg by mouth once daily 02/25/2019 traMADol (ULTRAM) 50 MG tablet Take 50 mg by mouth every 6 hours as needed for Pain 10/02/2018 documented as of this encounter ED Notes * Adina Wells RN - 09/25/2018 12:53 PM CDT Called Ms. Rausch, verified and provided results. HIV Antigen/Antibody screen negative. Educatedpatient about HIV. Pt expressed gratitude and understanding. Adina Wells BOX FINISHER Nurse Navigator Emergency Department [place] [id number] * Mario Painter MD - 09/25/2018 12:39 PM CDT Provider contact with the patient: 09/25/2018 12:39 Carito Rausch [id number] [facility] History Chief Complaint Patient presents with ??? Pain Muscle Patient comes to ED today for generalized pain and swelling to B.hands, L.neck and B.knees x1 monththat is getting progressively worse. Patient notes decrease in ROM r/t to swelling and pain. Patient notes h/o L2-L5 and S1 buldging discs and lupus. RN notes 2+ radial and pedal pulses, digits warm and moveable, cap refill <3secs. ??? 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 States pain is worst in Patient states symptoms began approximately around 09/2017 after she had a misscarriage. States that symptoms continued to worsen and since December reports significant decrease in functionality and range of motion. Patient has been seen in ED multiple times over thelast year for similar complaints. She reports that currently she is following with rheumatology at [facility] at which time she has had multiple autoimmune labs result as abnormal but unclear the exact pathology. She states that she has been on hydroxychloroquine in the past but did not provide relief. She is currently managing her pain with prednisone, leflunomide, and diclofenac but states that this has not provided relief. She states that currently she is having issues with mobility, joint and muscle pain which is worst in neck, left arm, and bilateral legs. Pain is getting so severe that she has recently had to quit her job. She had an MRI of her head last week which was unremarkable. MRI of spine just showed some mild disc herniations. Patient also reports recently starting to follow with pain management but has only had a single visit. Patient endorses associated nausea, diaphoresis, and shortness of breath 2/2 pain. No fever, chills, diarrhea, dysuria, rash, headaches, numbness/tingling, or photosensitivity. Past Medical History: Diagnosis Date ??? Fibromyalgia ??? Lupus Past Surgical History: Procedure Laterality Date ??? Appendectomy ??? Dilation and Curettage No family history on file. Social History Social History ??? Marital status: Single Spouse name: N/A ??? Number of children: N/A ??? Years of education: N/A Occupational History ??? Not on file. Social History Main Topics ??? Smoking status: Former Smoker Packs/day: 0.00 ??? Smokeless tobacco: Never Used ??? Alcohol use No ??? Drug use: Yes Special: Marijuana Comment: last use 09/22/2018 ??? Sexual activity: Not on file Other Topics Concern ??? Not on file Social History Narrative Review of Systems Review of Systems Constitutional: Positive for diaphoresis and malaise/fatigue. Negative for chills and fever. HENT: Negative for congestion, ear discharge, ear pain, hearing loss, sinus pain, sore throat and tinnitus. Eyes: Negative for photophobia, pain, discharge and redness. Respiratory: Negative for cough, hemoptysis, sputum production, shortness of breath and wheezing. Cardiovascular: Positive for chest pain (2/2 pain). Negative for palpitations, orthopnea and leg swelling. Gastrointestinal: Positive for nausea. Negative for abdominal pain, blood in stool, constipation, diarrhea, heartburn, melena and vomiting. Genitourinary: Negative for dysuria, frequency and urgency. Musculoskeletal: Positive for back pain, falls, joint pain, myalgias and neck pain. Skin: Negative for itching and rash. Neurological: Positive for weakness. Negative for dizziness, tingling, sensory change, speech change, seizures, loss of consciousness and headaches. Endo/Heme/Allergies: Does not bruise/bleed easily. Psychiatric/Behavioral: Negative for suicidal ideas. The patient is nervous/anxious. Physical Exam BP 138/90 Pulse 87 Temp 98 ??F (36.7 ??C) Resp 18 Ht 1.575 m (5' 2 ) Wt 63.5 kg (140 lb) SpO2 100% BMI 25.61 kg/m2 Physical Exam Constitutional: She is oriented to person, place, and time. She appears well- developed and well-nourished. No distress. HENT: Head: Normocephalic and atraumatic. Right Ear: External ear normal. Left Ear: External ear normal. Nose: Nose normal. Mouth/Throat: Oropharynx is clear and moist. No oropharyngeal exudate. Eyes: Pupils are equal, round, and reactive to light. Conjunctivae and EOM are normal. Right eye exhibits no discharge. Left eye exhibits no discharge. No scleral icterus. Neck: Neck supple. Limited range of motion with neck flexion, extension, and lateral rotation. Cardiovascular: Normal rate, regular rhythm, normal heart sounds and intact distal pulses. Exam reveals no gallop and no friction rub. No murmur heard. Pulmonary/Chest: Effort normal and breath sounds normal. No stridor. No respiratory distress. She has no wheezes. She has no rales. She exhibits no tenderness. Abdominal: Soft. Bowel sounds are normal. She exhibits no distension. There is no tenderness. Musculoskeletal: She exhibits edema (of fingers bilaterally) and tenderness (Paracervical muscles). Lymphadenopathy: She has no cervical adenopathy. Neurological: She is alert and oriented to person, place, and time. She displays normal reflexes. No cranial nerve deficit. She exhibits normal muscle tone. Coordination normal. Skin: Skin is warm. No rash noted. She is not diaphoretic. No erythema. No pallor. Psychiatric: She has a normal mood and affect. Nursing note and vitals reviewed. Medications Current Outpatient Prescriptions Medication Sig Dispense Refill ??? ALPRAZolam (XANAX) 0.25 MG tablet Take 0.25 mg by mouth 3 times daily as needed for Anxiety ??? celecoxib (CELEBREX) 100 MG capsule Take 1 capsule by mouth 2 times daily 60 capsule 0 ??? leflunomide (ARAVA) 10 MG tablet Take 10 mg by mouth once daily ??? omeprazole (PRILOSEC) 20 MG capsule Take 20 mg by mouth daily before breakfast ??? predniSONE (DELTASONE) 5 MG tablet Take 5 mg by mouth ??? traMADol (ULTRAM) 50 MG tablet Take 50 mg by mouth every 6 hours as needed for Pain Procedures Procedures None ECG Interpretation ECG Interpretation Lab Interpretation Normal Labs:normal Chemistry and normal LFT's WBC:normal,Hemoglobin:decreased,Hematocrit:normal, and Platelets:normal Sed Rate: increased (slightly to 36) CPK:normal Other labs: other (Normal CRP) Oxygen Saturation Interpretation The oxygen saturation level is: 100%. Measurement frequency: Spot Check. Oxygen saturation interpretation is Normal. Intervention(s) used: None. Hospital Encounter on 09/25/18 HIV-1 HIV-2 ANTIGEN/ANTIBODY Result Value Ref Range HIV Antigen/Antibody 1 & 2 Non-reactive Non-reactive CBC W AUTO DIFFERENTIAL Result Value Ref Range WBC 4.8 3.5 - 10.5 10??3/uL RBC 4.44 3.90 - 5.00 10??6/uL Hemoglobin 11.6 (L) 12.0 - 15.5 g/dL Hematocrit 37.1 35.0 - 45.0 % MCV 83.6 81.0 - 97.0 fL MCH 26.1 (L) 28.0 - 34.0 pg MCHC 31.3 (L) 32.0 - 36.0 g/dL Platelet Count 277 150 - 400 10??3/uL RDW-SD 51.3 (H) 36.0 - 50.0 fL RDW-CV 16.8 (H) 11.2 - 14.8 % MPV 10.1 9.3 - 12.8 fL nRBC Absolute 0.00 0 10??3/uL nRBC Auto 0.0 0 /100 WBC Neutrophils % 81.1 (H) 35.0 - 70.0 % Lymphocytes % 12.9 (L) 19.7 - 55.1 % Monocytes % 5.2 3.0 - 15.0 % Eosinophils % 0.6 0.0 - 6.0 % Basophil % 0.0 0.0 - 1.5 % Neutrophils Absolute 3.9 1.6 - 7.0 10??3/uL Lymphocyte Absolute 0.6 (L) 0.8 - 2.9 10??3/uL Monocytes Absolute 0.25 0.14 - 0.66 10??3/uL Eosinophils Absolute 0.03 0.00 - 0.45 10??3/uL Basophils Absolute 0.00 0.00 - 0.06 10??3/uL Immature Granulocytes % 0.2 0.0 - 1.0 % COMPREHENSIVE METABOLIC PANEL Result Value Ref Range BUN 20 7 - 26 mg/dL Creatinine 0.8 0.6 - 1.2 mg/dL Sodium 141 136 - 145 mmol/L Potassium 3.6 3.5 - 4.5 mmol/L Chloride 104 98 - 107 mmol/L CO2 28 22 - 29 mmol/L Glucose 84 70 - 115 mg/dL Calcium 9.5 8.4 - 10.2 mg/dL Protein Total 7.4 6.0 - 8.3 g/dL Albumin 3.7 3.4 - 5.0 g/dL Bilirubin Total 0.3 0.2 - 1.2 mg/dL Alkaline Phosphatase 47 40 - 150 Units/L ALT 19 0 - 55 Units/L AST 16 5 - 34 Units/L Anion Gap 13 8 - 18 BUN/Creatinine Ratio 25 (H) 7 - 23 Osmolality Calculated 294 270 - 300 mOsm/kg Albumin/Globulin Ratio 1.0 (L) 1.1 - 2.3 eGFR >60 >60 mL/min/1.73 m2 C-REACTIVE PROTEIN Result Value Ref Range C-Reactive Protein <0.5 <=0.5 mg/dL ERYTHROCYTE SEDIMENTATION RATE Result Value Ref Range Erythrocyte Sedimentation Rate Westergren 36 (H) 0 - 20 MM/HR MAGNESIUM BLOOD Result Value Ref Range Magnesium 1.8 1.6 - 2.6 mg/dL CK BLOOD Result Value Ref Range CK Total 9 (L) 30 - 200 Units/L No orders to display Progress Notes ED Course ED Course 28 y/o F PMH fibromyaglia and suspected autoimmune disease presenting with chronic muscle and jointpain which has been worsening since December of 2018. DDx includes autoimmune disease (SLE, rheumatoid negative arthritis, HLAB27 arthritis disorders, or myositis) vs fibromyalgia. ?? 10:50 AM - Patient with stable vitals signs and non-toxic appearing. Will review labs including CBC, CMP, Mag, CRP, ESR, HIV, CK. ?? 11:10: Labs reviewed. CBC, CMP, CRP, CK, Magnesium all reassuring. ESR only slightly elevated. HIV negative. Discussed with patient limitations of interventions that can be done for autoimmune disease in the ED. Patient demonstrates understanding but expressed concern about inadequate pain control. Discussed alternative options for pain control including starting scheduled acetaminophen in addition to switching diclofenac to Celebrex. Patient open to medication changes. Also discussed [facility] and see if able to get in to establish with rheum as soon as possible. Patient also provided number for pain management service prior to discharge. Patient had all questionsanswered prior to discharge and expressed understanding. Patient in stable condition for discharge. Medical Decision Making I have reviewed the: Previous Chart, Nursing Notes, Vitals, Outside Records. I have interpreted the following results: Labs. Orders Placed This Encounter ??? HIV-1 HIV-2 ANTIGEN/ANTIBODY ??? CBC W AUTO DIFFERENTIAL ??? COMPREHENSIVE METABOLIC PANEL ??? C-REACTIVE PROTEIN ??? ERYTHROCYTE SEDIMENTATION RATE ??? MAGNESIUM BLOOD ??? CK BLOOD ??? celecoxib (CELEBREX) 100 MG capsule Clinical Impression Final diagnoses: Myalgia Disposition: Discharge to home. Follow-up Information Follow-up With Details Why Contact Info Byron Krause MD Call [address] [address] [facility] Call [phone] [facility] [id number] User Date/Time Mario Painter MD Wed Sep 25, 2018 12:45 PM * Rehana Hallman RN - 09/25/2018 12:[address] Carrion at the bedside for assessment * Rehana Hallman RN - 09/25/2018 11:24 AM CDT Resident at the bedside for assessment. * Rehana Hallman RN - 09/25/2018 11:06 AM CDT Assumed care at this time from triage. * Yaquelin Carrion MD - 09/25/2018 11:02 AM CDT ED Resident Attestation I have personally seen, examined and been fully involved in the management of this patient with theresident. I confirm history, exam, assessment and plan Discussed with the resident. In addition I note: Interval History: Carito Rausch is a 28 year old female with history of fibromyalgia and lupus presenting to the ED c/o generalized joint pain and swelling. She has a history of swelling and pain due to her fibromyalgia and lupus. She has been having acutely worsening of symptoms for the past month. She has been having somewhat decreased ROM in her joints. She also notes a history of bulging discs in L2-L5 and S1. Symptoms are worse with nothing, better with nothing. She has no other complaints at this time. Past Medical History: Diagnosis Date ??? Fibromyalgia ??? Lupus Past Surgical History: Procedure Laterality Date ??? Appendectomy ??? Dilation and Curettage Social History Social History ??? Marital status: Single Spouse name: N/A ??? Number of children: N/A ??? Years of education: N/A Occupational History ??? Not on file. Social History Main Topics ??? Smoking status: Former Smoker Packs/day: 0.00 ??? Smokeless tobacco: Never Used ??? Alcohol use No ??? Drug use: Yes Special: Marijuana Comment: last use 09/22/2018 ??? Sexual activity: Not on file Other Topics Concern ??? Not on file Social History Narrative Review of Systems: (+) positive All systems negative except as marked. Constitutional: Negative for fever HENT: Negative for sore throat. Eyes: Negative for visual changes Respiratory: Negative for SOB, cough Cardiovascular: Negative for chest pain, palpitations Gastrointestinal: Negative abdominal pain, nausea, vomiting, diarrhea Genitourinary: Negative for difficulty urinating, hematuria, dysuria Musculoskeletal: + Joint pain and swelling Skin: Negative for rash, itching Neurological: Negative for [place], dizziness, weakness, numbness, tingling Psychiatric: Negative for SI, hallucinations, anxiety Vitals: 09/25/18 0949 09/25/18 1221 BP: 123/81 138/90 Pulse: 104 87 Resp: 16 18 Temp: 98 ??F (36.7 ??C) SpO2: 100% 100% Weight: 63.5 kg (140 lb) Height: 1.575 m (5' 2 ) Exam: Constitutional: well developed, well nourished, no acute distress HENT: normocephalic, atraumatic, moist oral mucosa, conjunctiva normal Eyes: PERRL, EOMi Neck: supple, normal ROM Cardiovascular: regular rate and rhythm, no murmur Respiratory: clear to auscultation bilaterally, no wheezes, no respiratory distress Abdomen: soft, non-tender, non-distended Musculoskeletal: mild swelling of BL hands, reflexes 2+ symmetric, no clonus, no gross deformity Skin: warm, dry, no lesions Neurological: awake, alert&Ox4, moving all extremities, no focal motor/sensation deficits. Psychiatric: mood and affect normal Medical Decision Makin. Joint pain Differential diagnosis considered: Myalgia vs joint pain vs autoimmune vs chronic joint pain vs other Plan: Clinically no emergent condition. Will make changes with pain management. Refer to rheumatology. Sent message through [facility] to rheumatology and pain management Results: Labs Reviewed CBC W AUTO DIFFERENTIAL - Abnormal; Notable for the following: Result Value Hemoglobin 11.6 (*) MCH 26.1 (*) MCHC 31.3 (*) RDW-SD 51.3 (*) RDW-CV 16.8 (*) Neutrophils % 81.1 (*) Lymphocytes % 12.9 (*) Lymphocyte Absolute 0.6 (*) All other components within normal limits COMPREHENSIVE METABOLIC PANEL - Abnormal; Notable for the following: BUN/Creatinine Ratio 25 (*) Albumin/Globulin Ratio 1.0 (*) All other components within normal limits ERYTHROCYTE SEDIMENTATION RATE - Abnormal; Notable for the following: Erythrocyte Sedimentation Rate Westergren 36 (*) All other components within normal limits CK BLOOD - Abnormal; Notable for the following: CK Total 9 (*) All other components within normal limits HIV-1 HIV-2 ANTIGEN/ANTIBODY - Normal C-REACTIVE PROTEIN - Normal MAGNESIUM BLOOD - Normal No orders to display ED course: The patient's Oxygen Saturation Monitor was interpreted by me. The reading was 100%. The patient was on room air at the time of the reading. This is interpreted as normal. 12:49 PM - Remainder of workup unremarkable. Patient is able to tolerate PO and ambulate with steady gait. Will d/c home Discharge Medication List as of 09/25/2018 12:46 PM START taking these medications Details celecoxib (CELEBREX) 100 MG capsule Disp-60 capsule, R-0, Take 1 capsule by mouth 2 times daily, Print 12:49 PM: I have reviewed her diagnostic findings and she has had an opportunity to ask me any questions she has about care, diagnosis and discharge plan. Patient is comfortable with the discharge plan. She will follow up as directed and will return to the ER if her condition worsens or she develops other urgent concerns. Consult No Procedure done at this time No Ultrasound done at this time No CRITICAL CARE IN THE ED No Orders and Medicine administered during this encounter: Orders Placed This Encounter ??? HIV-1 HIV-2 ANTIGEN/ANTIBODY ??? CBC W AUTO DIFFERENTIAL ??? COMPREHENSIVE METABOLIC PANEL ??? C-REACTIVE PROTEIN ??? ERYTHROCYTE SEDIMENTATION RATE ??? MAGNESIUM BLOOD ??? CK BLOOD ??? celecoxib (CELEBREX) 100 MG capsule Medications - No data to display Clinical Impression: 1. Myalgia Scripts: Disposition: Discharge home Follow-up: Follow-up Information Call Byron Krause MD. Specialty: Anesthesiology Contact information: [address] [address] [facility]. Specialty: Rheumatology Contact information: [address] [facility] [address] Please see resident note for further details By signing my name below, I, Leonardo Dumont, attest that this documentation has been prepared under the direction and in the presence of Dr. Carrion. Signed: Karlie Randhawa. I, Dr. Carrion, personally performed the services described in this documentation. All medical recordentries made by the scribe were at my direction and in my presence. I have reviewed the chart and agree that the record reflects my personal performance is and is accurate and complete. * Jf Simms, TROUSSEAU CONSULTANT-[employer] OPERATOR - 09/25/2018 10:39 AM CDT Medical Screening Exam 09/25/2018 10:39 AM I have reviewed the patient's chief complaint, onset of chief complaints, vital signs, level of distress, allergies, current medications, immunization status, as well as completed a focused localizedexam. I have completed a focused limited exam, further evaluation will be necessary in the emergency department to determine if an emergency medical condition exists. This plan has been articulated to the patient/family. Vitals: 09/25/18 0949 BP: 123/81 Pulse: 104 Resp: 16 Temp: 98 ??F (36.7 ??C) SpO2: 100% Weight: 63.5 kg (140 lb) Height: 1.575 m (5' 2 ) Patient Evaluated: [facility]. Has been loosing mobility from her neck down. Has had a CXR and a MRI of lumbar spine and had bulging discs L2- L5 and S1. Currently has a pain in the back of her neck that radiates down her left arm. States she has to vegetable picker her legs to get into the shower. States that her CK levels have dropped. States that her pain is a 7/10 worse with movement. States everyday when she wakes up her jaw hurts throat is sore. Started in December. Was andhad a miscarriage in September. In December was unable to walk. Had MRI on brain, no lesions were seen. +dizziness, lightheaded, blurry vision, flashes, floaters, muscle aches, weakness, finger swellingin the AM. States she clenches her jaws at night. States she has episodes of confusion, fatigue. States she has a knot on the left side of chest. States she has fallen several times since December. States she saw a neurologist at [facility] who tapped on her legs and told her she was fine. PERRLA, EOM, SILT, strength 3-4/5 BUE and BLE. HRRR, LCTAB. documented in this encounter Plan of Treatment Not on file documented as of this encounter Procedures Procedure Name Priority Date/Time Associated Diagnosis Comments HIV-1 HIV-2 ANTIGEN/ANTIBODY STAT 09/25/2018 11:03 AM CDT C-REACTIVE PROTEIN NAHOMY 09/25/2018 11 :03 AM CDT ERYTHROCYTE SEDIMENTATION RATE STAT 09/25/2018 11:03 AM CDT CBC W AUTO DIFFERENTIAL STAT 09/25/2018 11:03 AM CDT COMPREHENSIVE METABOLIC PANEL STAT 09/25/2018 11:03 AM CDT MAGNESIUM BLOOD STAT 09/25/2018 11:03 AM CDT CK BLOOD STAT 09/25/2018 11:03 AM CDT documented in this encounter Results * (ABNORMAL) CK BLOOD (09/25/2018 11:03 AM CDT) CK Total 9(L) 30 - 200 Units/L 09/25/2018 11:32 AM CDT [facility] Blood BLOOD SPECIMEN / Unknown Venipuncture / Unknown 09/25/2018 11:03 AM CDT 09/25/2018 11:06 AM CDT Jf Simms APRN-[employer] OPERATOR LAB - CHEMISTRY ORDERABLES Performing Organization Address [facility]/ZIP Co de Phone Number [address] [phone] * MAGNESIUM BLOOD (09/25/2018 11:03 AM CDT) Magnesium 1.8 1.6 - 2.6 mg/dL 09/25/2018 11:31 AM CDT [facility] Blood BLOOD SPECIMEN / Unknown Venipuncture / Unknown 09/25/2018 11:03 AM CDT 09/25/2018 11:06 AM CDT Jf Simms APRN-[facility] LAB - CHEMISTRY ORDERABLES Performing Organization Address [facility] Co de Phone Number [address] [phone] * (ABNORMAL) ERYTHROCYTE SEDIMENTATION RATE (09/25/2018 11:03 AM CDT) Erythrocyte Sedimentation Rate Westergren 36(H) 0 - 20 MM/HR 09/25/2018 11:21 AM CDT [facility] Blood BLOOD SPECIMEN / Unknown Venipuncture / Unknown 09/25/2018 11:03 AM CDT 09/25/2018 11:06 AM CDT Jf SELLERS LAB - HEMATOLOGY ORDERABLES Performing Organization Address City/[facility]/ZIP Co de Phone Number [address] [phone] * C-REACTIVE PROTEIN (09/25/2018 11:03 AM CDT) C-Reactive Protein <0.5 <=0.5 mg/dL 09/25/2018 11:59 AM CDT [facility] Blood BLOOD SPECIMEN / Unknown Venipuncture / Unknown 09/25/2018 11:03 AM CDT 09/25/2018 11:06 AM CDT Jf Simms APRN-[employer]PERATOR LAB - CHEMISTRY ORDERABLES [facility] [address] [phone] * (ABNORMAL) COMPREHENSIVE METABOLIC PANEL (09/25/2018 11:03 AM [facility]) BUN 20 7 - 26 mg/dL 09/25/2018 11:31 AM [facility] Creatinine 0.8 0.6 - 1.2 mg/dL 09/25/2018 11:31 AM [facility] Sodium 141 136 - 145 mmol/L 09/25/2018 11:31 AM [facility] Potassium 3.6 3.5 - 4.5 mmol/L 09/25/2018 11:31 AM [facility] Chloride 104 98 - 107 mmol/L 09/25/2018 11:31 AM [facility] CO2 28 22 - 29 mmol/L 09/25/2018 11:31 AM [facility] Glucose 84 70 - 115 mg/dL 09/25/2018 11:31 AM [facility] Calcium 9.5 8.4 - 10.2 mg/dL 09/25/2018 11:31 AM [facility] Protein Total 7.4 6.0 - 8.3 g/dL 09/25/2018 11:31 AM [facility] Albumin 3.7 3.4 - 5.0 g/dL 09/25/2018 11:31 AM [facility] Bilirubin Total 0.3 0.2 - 1.2 mg/dL 09/25/2018 11:31 AM [facility] Alkaline Phosphatase 47 40 - 150 Units/L 09/25/2018 11:31 AM [facility] ALT 19 0 - 55 Units/L 09/25/2018 11:31 AM [facility] AST 16 5 - 34 Units/L 09/25/2018 11:31 AM [facility] Anion Gap 13 8 - 18 09/25/2018 11:31 AM [facility] BUN/Creatinine Ratio 25(H) 7 - 23 09/25/2018 11:31 AM [facility] Osmolality Calculated 294 270 - 300 mOsm/kg 09/25/2018 11:31 AM [facility] Albumin/Globulin Ratio 1.0(L) 1.1 - 2.3 09/25/2018 11:31 AM [facility] eGFR >60 >60 mL/min/1.7 3 m2 09/25/2018 11:31 AM [facility] Blood BLOOD SPECIMEN / Unknown Venipuncture / Unknown 09/25/2018 11:03 AM CDT 09/25/2018 11:06 AM T Gleyseda Thayermian [employer]OUSSEAU CONSULTANT-[employer] OPERATOR LAB - CHEMISTRY ORDERABLES [facility] [address] [phone] * (ABNORMAL) CBC W AUTO DIFFERENTIAL (09/25/2018 11:03 AM T) WBC 4.8 3.5 - 10.5 10? 3 /uL 09/25/2018 11:09 AM [facility] RBC 4.44 3.90 - 5.00 10? 6 /uL 09/25/2018 11:09 AM [facility] Hemoglobin 11.6(L) 12.0 - 15.5 g/dL 09/25/2018 11:09 AM [facility] Hematocrit 37.1 35.0 - 45.0 % 09/25/2018 11:09 AM [facility] MCV 83.6 81.0 - 97.0 fL 09/25/2018 11:09 AM [facility] MCH 26.1(L) 28.0 - 34.0 pg 09/25/2018 11:09 AM [facility] MCHC 31.3(L) 32.0 - 36.0 g/dL 09/25/2018 11:09 AM [facility] Platelet Count 277 150 - 400 10? 3 /uL 09/25/2018 11:09 AM [facility] RDW-SD 51.3(H) 36.0 - 50.0 fL 09/25/2018 11:09 AM [facility] RDW-CV 16.8(H) 11.2 - 14.8 % 09/25/2018 11:09 AM [facility] MPV 10.1 9.3 - 12.8 fL 09/25/2018 11:09 AM [facility] nRBC Absolute 0.00 0 10? 3 /uL 09/25/2018 11:09 AM [facility] nRBC Auto 0.0 0 /100 WBC 09/25/2018 11:09 AM [facility] Neutrophils % 81.1(H) 35.0 - 70.0 % 09/25/2018 11:09 AM [facility] Lymphocytes % 12.9(L) 19.7 - 55.1 % 09/25/2018 11:09 AM [facility] Monocytes % 5.2 3.0 - 15.0 % 09/25/2018 11:09 AM [facility] Eosinophils % 0.6 0.0 - 6.0 % 09/25/2018 11:09 AM [facility] Basophil % 0.0 0.0 - 1.5 % 09/25/2018 11:09 AM [facility] Neutrophils Absolute 3.9 1.6 - 7.0 10? 3 /uL 09/25/2018 11:09 AM [facility] Lymphocyte Absolute 0.6(L) 0.8 - 2.9 10? 3 /uL 09/25/2018 11:09 AM [facility] Monocytes Absolute 0.25 0.14 - 0.66 10? 3 /uL 09/25/2018 11:09 AM [facility] Eosinophils Absolute 0.03 0.00 - 0.45 10? 3 /uL 09/25/2018 11:09 AM [facility] Basophils Absolute 0.00 0.00 - 0.06 10? 3 /uL 09/25/2018 11:09 AM [facility] Immature Granulocytes % 0.2 0.0 - 1.0 % 09/25/2018 11:09 AM [facility] Blood BLOOD SPECIMEN / Unknown Venipuncture / Unknown 09/25/2018 11:03 AM CDT 09/25/2018 11:06 AM T Jf Simms TROUSSEAU CONSULTANT-[employer] OPERATOR LAB - HEMATOLOGY ORDERABLES [facility] [address] [place], [place] [id number] [place] [address] * HIV-1 HIV-2 ANTIGEN/ANTIBODY (09/25/2018 11:03 AM CDT) HIV Antigen/Antibod y 1 & 2 Non-reacti ve Non-react kaylyn 09/25/2018 12:18 PM CDT [facility] Comment: Neither HIV-1 p24 Antigen nor HIV-1/HIV-2 Antibodies are detected. ? Blood BLOOD SPECIMEN / Unknown Venipuncture / Unknown 09/25/2018 11:03 AM CDT 09/25/2018 11:06 AM CDT Yaquelin Carrion MD LAB - HEMATOLOGY ORD ERABLES Performing Organization Address City/State/[facility] Co de Phone Number [address] [phone] documented in this encounter Visit Diagnoses Diagnosis Myalgia Mylagia and myositis, unspecified documented in this encounter Care Teams Employee Communications Specialist Relationship Specialty Start Date End Date Huseyin Dangelo MD PCP - General Family Medicine 08/22/17 06/18/19 documented as of this encounter
--- OUTSIDE RECORDS SUMMARY | 2024-02-24 19:40 | XMS_ITS | Encounter Summary ---
Author Organization [facility] Address [address] [place] [address] Care Team Providers Care Superintendent Drilling And Production Name Role Phone Huseyin Dangelo MD Primary Care Provider [phone] Reason for Visit * Reason Comments Establish Care Lupus, Fibromyalgia Encounter Details Date Type Department Care Team (Late st Contact Info) Description 10/08/2018 9:00 AM CDT Office Visit [facility] Medical [facility] - Rheumatology [address] [facility] [address] [place] [address] Ashlee Magallon MD [address] [facility] [address] [place] [id number] Other forms of systemic lupus erythematosus, unspecified organ involvement status (HCC) (Primary Dx); Polyarthralgia; Malaise and fatigue; Pain in both knees, unspecified chronicity Social History Tobacco Use Types Packs/Day Years [...] Sign Reading Time Taken Comments Blood Pressure 122/92 10/08/2018 9:03 AM CDT Pulse 90 10/08/2018 9:03 AM CDT Temperature 36.2 ??C (97.2 ??F) 10/08/2018 9:03 AM CD T Respiratory Rate - - Oxygen Saturation 100% 10/08/2018 9:03 AM CDT Inhaled Oxygen Concentration - - Weight 65 kg (143 lb 3.2 oz) 10/08/2018 9:03 AM CDT Height 157.5 cm (5' 2 ) 10/08/2018 9:03 AM CDT Body Mass Index 26.19 10/08/2018 9:03 AM CDT documented in this encounter Patient Instructions * Patient Instructions* Angelique Abraham - 10/08/2018 10:12 AM CDT Complete labs today at [facility] on the 3rd floor. This will include a urinalysis. Complete x-rays today on the 1st floor across from the elevators. Start taking OTC Calcium and Vitamin D 1,000 mg/units of each daily. We will obtain the records from Dr. Lunyd office. Follow up with Dr Magallon in 4 weeks. Thank you for choosing [facility] for your healthcare needs. If you have any questions, you may contact me, Angelique, at [phone], option 1 then option 1 again. documented in this encounter Progress Notes * Ashlee Magallon MD - 10/08/2018 9:26 AM CDT Images from the original note were not included. [facility] Rheumatology New Patient Note Referring Physician: Huseyin Dangelo MD [address] [place] [address] [phone] Chief Complaint Patient presents with ??? Establish Care Lupus, Fibromyalgia History of Present Illness: CARITO ELDER ( 1990) is a 28 year old female With lupus and fibromyalgia. Previously seeing Dr. Strickland, no notes available currently. Currently on prednisone 15mg a day, leflunomide 20mg a day, diclofenac 50mg TID. Has failed MMF, celebrex, Plaquenil. Here for a second opinion. Her issues started after a recent miscarriage, was in normal SOH before that. First symptom December - hands would swell, very painful, knees and hips progressively worse. Dx around February with SLE. HCQ first - took it 3 months - wasn't helping at all - had some s/e On prednisone since December Was maybe going to start Imuran - but was self pay so couldn't come back to continue care. PCP put her on MMF - got really sick had pain in her abdomen/back - about a month. [facility] awful. HCQ - diarrhea On Leflunomide now x 2 months - hasn't helped at all. Diarrhea + Has n/v - frequently. Nothing has worked basically except steroids. Hard to function. Has filed for disability. Currently on 15mg prednisone. More pain with trying to wean it. +neck pain recently. Has RP - fingers turn white in the cold - +ACL ab - one miscarriage (one is not clear) - no confirmed blood clots - RP in winter - no reactions to sun Facial redness in am on cheeks - constant pain - swelling in hands, knees, hips, Hips for a couple months - am stiffness lasts all day Review of Systems: General: ++fatigue, -fever, -wt loss/gain, daily functioning not limited [...] -Raynaud, -photosensitivity, -acrocyanosis Neuro: -SHELTON, -vision changes, +muscle weakness, -paresthesias Psych: -depression, -anxiety ROS otherwise negative Past Medical/Surgical History: Past Medical History: Diagnosis Date ??? Anemia ??? Angina at rest ??? Fibromyalgia ??? Hypertension ??? Lupus Past Surgical History: Procedure Laterality Date ??? Appendectomy ??? Dilation and Curettage Family History: family history includes Arthritis - Rheumatoid in her paternal grandmother. Social History: Social History Tobacco Use ??? Smoking status: Former Smoker Packs/day: 0.00 ??? Smokeless tobacco: Never Used Substance Use Topics ??? Alcohol use: No Current Medications: Current Outpatient Medications Medication Sig Dispense Refill ??? ALPRAZolam (XANAX) 0.25 MG tablet Take 0.25 mg by mouth 3 times daily as needed for Anxiety ??? diclofenac potassium (CATAFLAM) 50 MG tablet Take 50 mg by mouth 3 times daily ??? leflunomide (ARAVA) 10 MG tablet Take 20 mg by mouth once daily ??? metroNIDAZOLE (FLAGYL) 500 MG tablet Take 1 tablet by mouth 2 times daily for 7 days (Patient not taking: Reported on 10/08/2018) 20 tablet 0 ??? omeprazole (PRILOSEC) 20 MG capsule Take 20 mg by mouth daily before breakfast ??? predniSONE (DELTASONE) 5 MG tablet Take 15 mg by mouth once daily No current facility-administered medications for this visit. Allergies: CARITO Crow allergic to methylprednisolone. Physical Exam: BP 122/92 (BP SITE: LEFT ARM, BP POSITION: SITTING, BP CUFF SIZE: 11) Pulse 90 Temp 97.2 ??F (36.2 ??C) Ht 1.575 m (5' 2 ) Wt 65 kg (143 lb 3.2 oz) SpO2 100% BMI 26.19 kg/m2 General: no distress, cooperative Skin: no rash or lesions, no color change or livedo reticularis, normal temperature & turgor HEENT: conjunctivae and sclerae clear, PERRLA, EOMI, external ear normal, no oral or nasal ulceration, mucus membranes moist Neck: supple, normal ROM, no LAD Back: symmetric, no curvature, normal ROM, no paraspinal tenderness, no SI tenderness Chest/Lungs: lungs CTAB, no wheezes, rhonchi, or rales Heart: RRR, no murmur, no rub or gallop Abdomen; soft, non-tender, non-distended, no HSM Neurologic: grossly intact, alert, muscle strength 5/5 MSK: synovitis across MCPs S1T1 PIPs 2-5 SfT1 Knees are slightly full, painful ROM Hips painful ROM Lab/Diagnostics: Recent Labs Component Name 10/01/18204909/25/18 1103 08/22/18 1121 WBC 3.9* 4.8 7.0 HGB 10.7* 11.6* 10.8* PLTCOUNT 238 277 333 MCV 83.3 83.6 81.2 Recent Labs Component Name 10/01/18204909/25/18 1103 08/22/18 1121 07/05/18 1549 CREATININE 0.72 0.8 0.72 0.66 BUN 17 20 11 13 SODIUM 141 - 140 136 POTASSIUM 3.5 3.6 4.0 4.1 Recent Labs Component Name 10/01/18204909/25/18 1103 08/22/18 1121 07/05/18 1549 AST 16 16 15 24 ALT 23 19 12* 12* ALKPHOS 42 47 43 56 TBIL 0.3 - 0.4 0.2 Recent Labs Component Name 10/01/18204908/22/18 1121 SEDRATE 11 9 Recent Labs Component Name 10/01/18204909/25/18 1103 08/22/18 1121 CRP 0.80* <0.5 1.00* Study Result ?? CT OF THE CHEST WITH IV CONTRAST - PULMONARY EMBOLISM PROTOCOL ?? Information from [facility].I.[facility].: Shortness of breath Clinical [...] her symptoms could be stemming from scleroderma. ?? TECHNIQUE: Axial images of the chest were [...] grammatical or syntax problems by a trained front office medical assistant. For questions about the report, please contact the Radiology Department. ?? FINDINGS: I do not see any large, central intra-arterial filling defects in the pulmonary arteries. The lungs are clear of confluent infiltrates. There are no measurable pleural effusions. The heart size is normal. ?? IMPRESSION ? Negative for pulmonary embolism. ? Reading Radiologist: Demario Costello MD on 10/02/2018 at 12:48 AM Assessment/Plan: CARITO ELDER is a 28 year old female with SLE (BARAK, dsDNA, MANAGER RESOURCE ab) with manifestations of synovitis and fatigue. Will repeat all serologies now including APLS labs. Consider Imuran +/- Benlysta. Check TPMT. In the past could not tolerate HCQ or MMF. Will call with results, f/u first available. Should be on control currently, as active lupus and predispose to miscarriages. Hip xrays due to hip pain and prison steroids (r/o AVN). Try to wean steroids as fast as wel can. Continue NSAID with PPI. Return at first available follow up appointment for results/plan. All of the patient's questions and concerns were addressed. Thank you for the referral. Ashlee Magallon MD Rheumatology [facility] [place], [place] Office phone: [phone] Orders Placed This Encounter ??? XR HIPS BILATERAL 2VW Standing Status: Future Number of Occurrences: 1 Standing Expiration Date: 10/09/2019 ??? XR CERVICAL SPINE 6VW OR MORE Standing Status: Future Number of Occurrences: 1 Standing Expiration Date: 10/09/2019 ??? XR KNEE BILAT 3VW Standing Status: Future Number of Occurrences: 1 Standing Expiration Date: 10/08/2019 Order Specific Question: Exam to be performed? Answer: Per Radiologist protocol ??? BARAK BLOOD SCREEN W/REFLEX TITER ??? BARAK COMPREHENSIVE PLUS PROFILE ??? BETA-2 GLYCOPROTEIN 1 ANTIBODY IGG/IGM PANEL ??? CARDIOLIPIN ANTIBODY IGG/IGM PANEL ??? LUPUS ANTICOAGULANT PANEL W RFLX ??? COMPLEMENT C3 C4 PANEL ??? COMPREHENSIVE METABOLIC PANEL ??? C-REACTIVE PROTEIN ??? CYCLIC CITRUL PEPTIDE ANTIBODY IGG/IGA (CCP) ??? ERYTHROCYTE SEDIMENTATION RATE ??? RHEUMATOID FACTOR BLOOD QUANTITATIVE ??? VITAMIN D 25-HYDROXY ??? URINALYSIS REFLEX MICROSCOPIC REFLEX CULTURE ??? TSH ??? T4 FREE ??? QUANTIFERON TB-GOLD ??? HEPATITIS C ANTIBODY ??? HEPATITIS PANEL ??? CK BLOOD ??? ALDOLASE ??? LDH BLOOD ??? THIOPURINE METHYLTRANSFERASE documented in this encounter Plan of Treatment Not on file documented as of this encounter Procedures Procedure Name Priority Date/Time Associated Diagnosis Comments BARAK COMPREHENSIVE PLUS PROFILE Routine 10/08/2018 10:35 AM CDT Other forms of systemic lupus erythematosus, unspecified organ involvement status (HCC) Polyarthralgia Malaise and fatigue JOSEMANUEL STAINING PATTERNS REFLEXED Routine 10/08/2018 10:35 AM CDT Other forms of systemic lupus erythematosus, unspecified organ involvement status (HCC) Polyarthralgia Malaise and fatigue CARDIOLIPIN ANTIBODY IGG/IGM PANEL Routine 10/08/2018 10:35 AM CDT Other forms of systemic lupus erythematosus, unspecified organ involvement status (HCC) Polyarthralgia Malaise and fatigue LUPUS ANTICOAGULANT PANEL W RFLX Routine 10/08/2018 10:35 AM CDT Other forms of systemic lupus erythematosus, unspecified organ involvement status (HCC) Polyarthralgia Malaise and fatigue BARAK BLOOD SCREEN W/REFLEX TITER Routine 10/08/2018 10:35 AM CDT Other forms of systemic lupus erythematosus, unspecified organ involvement status (HCC) Polyarthralgia Malaise and fatigue BETA-2 GLYCOPROTEIN 1 ANTIBODY IGG/IGM PANEL Routine 10/08/2018 10:35 AM CDT Other forms of systemic lupus erythematosus, unspecified organ involvement status (HCC) Polyarthralgia Malaise and fatigue THIOPURINE METHYLTRANSFERASE Routine 10/08/2018 10:35 AM CDT Other forms of systemic lupus erythematosus, unspecified organ involvement status (HCC) Polyarthralgia Malaise and fatigue COMPLEMENT C3 C4 PANEL Routine 9 10:35 AM CDT Other forms of systemic lupus erythematosus, unspecified organ involvement status (HCC) Polyarthralgia Malaise and fatigue URINALYSIS MICROSCOPIC ONLY REFLEXED Routine 10/08/2018 10:34 AM CDT Other forms of systemic lupus erythematosus, unspecified organ involvement status (HCC) Polyarthralgia Malaise and fatigue CYCLIC CITRUL PEPTIDE ANTIBODY IGG/IGA (CCP) Routine 10/08/2018 10:34 AM CDT Other forms of systemic lupus erythematosus, unspecified organ involvement status (HCC) Polyarthralgia Malaise and fatigue URINALYSIS REFLEX MICROSCOPIC REFLEX CULTURE Routine 10/08/2018 10:34 AM CDT Other forms of systemic lupus erythematosus, unspecified organ involvement status (HCC) Polyarthralgia Malaise and fatigue HEPATITIS B SURFACE ANTIGEN CONFIRM RFLXED Routine 10/08/2018 10:34 AM CDT Other forms of systemic lupus erythematosus, unspecified organ involvement status (HCC) Polyarthralgia Malaise and fatigue HEPATITIS PANEL Routine 10/08/2018 10:34 AM CDT Other forms of systemic lupus erythematosus, unspecified organ involvement status (HCC) Polyarthralgia Malaise and fatigue RHEUMATOID FACTOR BLOOD QUANTITATIVE Routine 10/08/2018 10:34 AM CDT Other forms of systemic lupus erythematosus, unspecified organ involvement status (HCC) Polyarthralgia Malaise and fatigue C-REACTIVE PROTEIN Routine 10/08/2018 10 :34 AM CDT Other forms of systemic lupus erythematosus, unspecified organ involvement status (HCC) Polyarthralgia Malaise and fatigue VITAMIN D 25-HYDROXY Routine 10/08/2018 10:34 AM CDT Other forms of systemic lupus erythematosus, unspecified organ involvement status (HCC) Polyarthralgia Malaise and fatigue ALDOLASE Routine 10/08/2018 10:34 AM CDT Other forms of systemic lupus erythematosus, unspecified organ involvement status (HCC) Polyarthralgia Malaise and fatigue QUANTIFERON TB-GOLD Routine 10/08/2018 1 0:34 AM CDT Other forms of systemic lupus erythematosus, unspecified organ involvement status (HCC) Polyarthralgia Malaise and fatigue ERYTHROCYTE SEDIMENTATION RATE Routine 10/08/2018 10:34 AM CDT Other forms of systemic lupus erythematosus, unspecified organ involvement status (HCC) Polyarthralgia Malaise and fatigue COMPREHENSIVE METABOLIC PANEL Routine 10/08/2018 10:34 AM CDT Other forms of systemic lupus erythematosus, unspecified organ involvement status (HCC) Polyarthralgia Malaise and fatigue LDH BLOOD Routine 10/08/2018 10:34 AM CDT Other forms of systemic lupus erythematosus, unspecified organ involvement status (HCC) Polyarthralgia Malaise and fatigue CK BLOOD Routine 10/08/2018 10:34 AM CDT Other forms of systemic lupus erythematosus, unspecified organ involvement status (HCC) Polyarthralgia Malaise and fatigue TSH Routine 10/08/2018 10:34 AM CDT Other forms of systemic lupus erythematosus, unspecified organ involvement status (HCC) Polyarthralgia Malaise and fatigue T4 FREE Routine 10/08/2018 10:34 AM CDT Other forms of systemic lupus erythematosus, unspecified organ involvement status (HCC) Polyarthralgia Malaise and fatigue HEPATITIS C ANTIBODY Routine 10/08/2018 10:34 AM CDT Other forms of systemic lupus erythematosus, unspecified organ involvement status (HCC) Polyarthralgia Malaise and fatigue documented in this encounter Results * XR KNEE BILAT 3VW (10/08/2018 11:50 [...] MD DIAGNOSTIC IMAGING O RDERABLES * XR HIPS BILATERAL 2VW (10/08/2018 11:50 AM CDT) Anatomical Region Laterality Modality Radiographic Simin ging 10/08/2018 12:0 8 PM CDT Impressions 10/08/2018 1:51 PM CDT NO ACUTE OSSEOUS ABNORMALITY. Edited by Nedra Morales on 10/08/2018 12:16 PM Reading Radiologist: Faizan Viramontes MD on 10/08/2018 at 1:51 PM Narrative 10/08/2018 1:51 PM CDT BILATERAL HIPS 2 VIEWS EACH INDICATION: 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 FINDINGS: Two views of each hip without prior for comparison shows no acute fracture, subluxation or dislocation. If symptoms persist, follow-up exam may be of further use to exclude an occult process. Procedure Note Faizan Viramontes MD - 10/08/2018 BILATERAL HIPS 2 VIEWS EACH INDICATION: 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 FINDINGS: Two views of each hip without prior for comparison shows no acute fracture, subluxation or dislocation. If symptoms persist, follow-up exam may be of further use to exclude an occult process. IMPRESSION NO ACUTE OSSEOUS ABNORMALITY. Edited by Nedra Morales on 10/08/2018 12:16 PM Reading Radiologist: Faizan Viramontes MD on 10/08/2018 at 1:51 PM Ashlee Magallon MD DIAGNOSTIC IMAGING O [...] MD DIAGNOSTIC IMAGING O RDERABLES * (ABNORMAL) JOSEMANUEL STAINING PATTERNS REFLEXED (10/08/2018 [...] Histones ?Drug-induced SLE ? Speckled ? Sm, MANAGER RESOURCE, SCL-70, ??SLE,MCTD,PSS (diffuse form), ? SS-A/SS-B ? Sjogrens ? Nucleolar ?SCL-70, PM-1/SCL ??High titers Scleroderma, ? PM/DM ? Centromere ?? Centromere ?PSS (limited form) w/Crest ? syndrome variable ? Nuclear Dot ??Sp100,[id number] ??Primary Biliary Cirrhosis ? Nuclear ?GP210, ?Primary Biliary Cirrhosis Membrane ? shelbie A,B,C ? 10/08/2018 10:3 5 AM CDT 10/08/2018 Narrative Resulting Agency Comment Lab Testing performed at: [facility] ??[facility] [phone] Ashlee Magallon MD LAB - PATHOLOGY/CYTO LOGY ORDERABLES [facility] ACCOUNT BILL [address] [place] [address] * THIOPURINE METHYLTRANSFERASE (10/08/2018 10:35 AM CDT) TPMT Activity 19.4 Units/mL RBC [facility] ACCOUNT BILL Comment: Reference Range: Normal: 15.1 - 26.4 Heterozygous for low TPMT variant: 6.3 - 15.0 Homozygous for low TPMT variant: <6.3 Interpretation [facility] ACCOUNT BILL Comment: The above results can [...] and electronically signed by Pratik Carvalho, PhD, [facility]. Methodology [facility] ACCOUNT BILL Comment: Enzymatic Endpoint/Liquid Chromatography - Tandem Mass Spectrometry (LC-MS/MS) Blood BLOOD SPECIMEN / Unknown 10/08/2018 10:35 AM CDT 10/08/2018 Narrative Resulting Agency Comment Lab Testing performed at: [facility] [employer] [address] [place] [address] ??[facility] [phone] Ashlee Magallon MD LAB - CHEMISTRY GREGORY RIVERA Performing Organization Address [facility] Co de Phone Number [facility] ACCOUNT BILL [address] [place] [address] * (ABNORMAL) COMPLEMENT C3 C4 PANEL (10/08/2018 10:35 AM CDT) Complement C3 68(L) 82 - 167 mg/dL [facility] ACCOUNT BILL Complement C4 10(L) 14 - 44 mg/dL [facility] ACCOUNT BILL Blood BLOOD SPECIMEN / Unknown 10/08/2018 10:35 AM CDT 10/08/2018 Narrative Resulting Agency Comment Lab Testing performed at: [facility] [place] [id number] [facility] ??[facility] [phone] Ashlee Magallon MD LAB - CHEMISTRY GREGORY RIVERA Performing Organization Address City/[facility] Co de Phone Number [facility] ACCOUNT BILL [address] [place] [address] * LUPUS ANTICOAGULANT PANEL W RFLX (10/08/2018 10:35 AM CDT) PTT-LA 31.2 0.0 - 51.9 sec [facility] ACCOUNT BILL dRVVT 31.1 0.0 - 47.0 sec [facility] ACCOUNT BILL Interpretation Comment: [facility] RP ACCOUNT BILL Comment:No lupus anticoagula nt was detected. Blood BLOOD SPECIMEN / Unknown 10/08/2018 10:35 AM CDT 10/08/2018 Narrative Resulting Agency Comment Lab Testing performed at: [facility] [address] ??[facility] [id number] Ashlee Magallon MD LAB - HEMATOLOGY ORD GENOVEVA [facility] ACCOUNT BILL [address] [place] [address] * (ABNORMAL) CARDIOLIPIN ANTIBODY IGG/IGM PANEL (10/08/2018 10:35 AM CDT) Cardiolipin Antibody IgG 12 0 - 14 GPL U/mL [facility] ACCOUNT BILL Comment: ? Negative: ?<15 ? Indeterminate: ? 15 - 20 ? Low-Med Positive: >20 - 80 ? High Positive: ? >80 Cardiolipin Antibody IgM 19(H) 0 - 12 MPL U/mL [facility] ACCOUNT BILL Comment: ? Negative: ?<13 ? Indeterminate: ? 13 - 20 ? Low-Med Positive: >20 - 80 ? High Positive: ? >80 Blood BLOOD SPECIMEN / Unknown 10/08/2018 10:35 AM CDT 10/08/2018 Narrative Resulting Agency Comment [facility] performed at: [facility] [address] ??[facility] [phone] Ashlee Magallon MD LAB - SEROLOGY ORDER ANAHI Performing Organization Address [facility] Co de Phone Number [facility] ACCOUNT BILL [address] [place] [address] * BETA-2 GLYCOPROTEIN 1 ANTIBODY IGG/IGM PANEL (10/08/2018 10:35 AM CDT) Beta-2 Glycoprotein I Antibody IgG <9 0 [...] Resulting Agency Comment Lab Testing performed at: [facility] ??[facility] [phone] Ashlee Magallon MD LAB - CHEMISTRY ORDE RABLES Performing Organization Address [facility] Co de Phone Number [facility] ACCOUNT BILL [address] [place] [address] * (ABNORMAL) BARAK COMPREHENSIVE PLUS PROFILE (10/08/2018 10:35 AM CDT) Anti-dsDNA Quantitative 68(H) 0 - 9 IU/mL [facility] ACCOUNT BILL Comment: ?Negative ?<5 ?Equivocal ??5 - 9 ?Positive ?>9 MANAGER RESOURCE Antibody 1.9(H) 0.0 - 0.9 AI [facility] ACCOUNT BILL Perez (PHUONG) Antibody <0.2 0.0 - 0.9 AI [facility] ACCOUNT BILL Perez/MANAGER RESOURCE Antibodies <0.2 0.0 - 0.9 AI [facility] [...] Sm (anti-Perez) ?SLE ?15 - 30% ? MANAGER RESOURCE ?Mixed Connective Tissue ? Disease ? 95% [...] Resulting Agency Comment Lab Testing performed at: [facility] [address] ??[facility] [phone] Ashlee Magallon MD LAB - CHEMISTRY GREGORY RIVERA [facility] ACCOUNT BILL [address] [place] [address] * (ABNORMAL) BARAK BLOOD SCREEN W/REFLEX TITER (10/08/2018 10:35 AM CDT) BARAK Positive(A ) [facility] ACCOUNT BILL Comment: ?Negative ?? <1:80 ?Borderline ??1:80 ?Positive ?? >1:80 Blood BLOOD SPECIMEN / Unknown 10/08/2018 10:35 AM CDT 10/08/2018 Narrative Resulting Agency Comment Lab Testing performed at: [facility] [address] ??[facility] [phone] Ashlee Magallon MD LAB - CHEMISTRY GREGORY RIVERA Performing Organization Address City/[facility]/ZIP Co de Phone Number [facility] ACCOUNT BILL [address] [place] [address] * HEPATITIS B SURFACE ANTIGEN CONFIRM RFLXED (10/08/2018 10:34 AM CDT) Hepatitis B Virus Surface Antigen Confirm Negative [facility] ACCOUNT BILL Comment:Final result obtaine d by neutralization. 10/08/2018 10:3 4 AM CDT 10/08/2018 Narrative Resulting Agency Comment Lab Testing performed at: [facility] [address] [facility] ??[facility] [phone] Ashlee Magallon MD LAB - CHEMISTRY GREGORY RIVERA Performing Organization Address [facility] Co de Phone Number [facility] ACCOUNT BILL [address] [place] [address] * (ABNORMAL) URINALYSIS MICROSCOPIC ONLY REFLEXED (10/08/2018 10:34 AM CDT) WBC UA 0-5 0 - 5 /hpf [facility] ACCOUNT BILL RBC UA 0-2 0 - 2 /hpf [facility] ACCOUNT BILL Epithelial Cells (non renal) >10(A) 0 - 10 /hpf [facility] ACCOUNT BILL Epithelial Cells (renal) NOT NEEDED [facility] ACCOUNT BILL Comment:Ancillary determined the test is not needed. Casts ua NOT NEEDED [facility] ACCOUNT BILL Comment:Ancillary determined the test is not needed. Casts UA NOT NEEDED [facility] ACCOUNT BILL Comment:Ancillary determined the test is not needed. Crystals UA Present(A) N/A [facility] ACCOUNT BILL Crystals UA Calcium Oxalate N/A [facility] ACCOUNT BILL Mucus UA Present Not Estab. [facility] ACCOUNT BILL Bacteria UA Few None seen/Few [facility] ACCOUNT BILL Yeast UA NOT NEEDED [facility] ACCOUNT BILL Comment:Ancillary determined the test is not needed. Trichomonas UA NOT NEEDED [facility] ACCOUNT BILL Comment:Ancillary determined the test is not needed. Comment Urine NOT NEEDED [facility] ACCOUNT BILL Comment:Ancillary determined the test is not needed. 10/08/2018 10:3 4 AM CDT 10/08/2018 Narrative Resulting Agency Comment Lab Testing performed at: [facility] [address] ??[facility] [phone] Ashlee Magallon MD LAB - URINALYSIS ORD ERABLES [facility] ACCOUNT BILL [address] [place] [address] * LDH BLOOD (10/08/2018 10:34 AM CDT) LDH 182 119 - 226 IU/L [facility] ACCOUNT BILL Blood BLOOD SPECIMEN / Unknown 10/08/2018 10:34 AM CDT 10/08/2018 Narrative Resulting Agency Comment Lab Testing performed at: [facility] [address] ??[facility] [phone] Ashlee Magallon MD LAB - CHEMISTRY ORDE RABAURORA Performing Organization Address City/[facility] Co de Phone Number [facility] ACCOUNT BILL [address] [place] [address] * ALDOLASE (10/08/2018 10:34 AM CDT) Aldolase 6.3 3.3 - 10.3 U/L [facility] ACCOUNT BILL Blood BLOOD SPECIMEN / Unknown 10/08/2018 10:34 AM CDT 10/08/2018 Narrative Resulting Agency Comment Lab Testing performed at: [facility] [place] [address] ??[place] [phone] Ashlee Magallon MD LAB - CHEMISTRY ORDE RABAURORA [facility] ACCOUNT BILL [address] [place] [address] * (ABNORMAL) CK BLOOD (10/08/2018 10:34 AM CDT) CK 10(L) 24 - 173 U/L [facility] ACCOUNT BILL Blood BLOOD SPECIMEN / Unknown 10/08/2018 10:34 AM CDT 10/08/2018 Narrative Resulting Agency Comment Lab Testing performed at: [facility] [place] [address] ??[facility] [phone] Ashlee Magallon MD LAB - CHEMISTRY GREGORY RIVERA Performing Organization Address [facility] Co de Phone Number [facility] ACCOUNT BILL [address] [place] [address] * (ABNORMAL) HEPATITIS PANEL (10/08/2018 10:34 AM [...] Agency Comment Lab Testing performed at: [facility] [place] [address] ??[facility] [phone] Ashlee Magallon MD LAB - CHEMISTRY GREGORY RIVERA Performing Organization Address [facility] Co de Phone Number [facility] ACCOUNT BILL [address] [place] [address] * HEPATITIS C ANTIBODY (10/08/2018 10:34 AM CDT) Hepatitis C Antibody 0.2 0.0 - 0.9 s/co ratio [facility] ACCOUNT BILL Comment: ? Negative: ? < 0.8 ?Indeterminate: 0.8 - 0.9 ? Positive: ? > 0.9 ? . ?The CDC recommends that a positive HCV antibody result ?be followed up with a HCV Nucleic Acid Amplification ?test (653654). Blood BLOOD SPECIMEN / Unknown 10/08/2018 10:34 AM CDT 10/08/2018 Narrative Resulting Agency Comment Lab Testing performed at: [facility] [address] ??[facility] [phone] Ashlee Magallon MD LAB - CHEMISTRY GREGORY RIVERA [facility] ACCOUNT BILL [address] [place] [address] * (ABNORMAL) QUANTIFERON TB-GOLD (10/08/2018 10:34 AM CDT) Pathologist [facility] QuantiFERON Incubation Incubation performed. [facility] ACCOUNT BILL [...] Resulting Agency Comment Lab Testing performed [facility] [address] [facility] ?? [facility] [phone] Ashlee Magallon MD LAB - CHEMISTRY GREGORY RIVERA [facility] ACCOUNT BILL [address] [place] [address] * T4 FREE (10/08/2018 10:34 AM CDT) [facility] T4 Free 1.15 0.82 - 1.77 ng/dL [facility] ACCOUNT BILL Blood BLOOD SPECIMEN / Unknown 10/08/2018 10:34 AM CDT 10/08/2018 Narrative Resulting Agency Comment Lab Testing performed at: [facility] [address] ??[facility] [phone] Ashlee Magallon MD LAB - CHEMISTRY GREGORY RIVERA Performing Organization Address City/[facility]/ZIP Co de Phone Number [facility] ACCOUNT BILL [address] [place] [address] * TSH (10/08/2018 10:34 AM CDT) Pathologist [facility] TSH 1.160 0.450 - 4.500 uIU/mL [facility] ACCOUNT BILL Blood BLOOD SPECIMEN / Unknown 10/08/2018 10:34 AM CDT 10/08/2018 Narrative Resulting Agency Comment Lab Testing performed at: [facility] [address] ??[facility] [phone] Ashlee Magallon MD LAB - CHEMISTRY GREGORY RIVERA Performing Organization Address City/[facility]/ZIP Co de Phone Number [facility] ACCOUNT BILL [address] [place] [address] * (ABNORMAL) URINALYSIS REFLEX MICROSCOPIC REFLEX CULTURE (10/08/2018 10:34 AM CDT) [facility] Specific Walker UA >=1.030(A) 1.005 - 1.030 [facility] ACCOUNT BILL pH UA 5.5 5.0 - 7.5 [facility] ACCOUNT BILL Color UA Yellow Yellow [facility] ACCOUNT BILL Appearance Cloudy(A) Clear [facility] ACCOUNT BILL Leukocyte UA Negative [...] OBTAINED BY CLEAN CATCH PROCEDURE / Unknown 10/08/2018 10:34 AM CDT 10/08/2018 Narrative Resulting Agency Comment Lab Testing performed at: [facility] [place] [address] [place] [address] ??[facility] [phone] Ashlee Magallon MD LAB - URINALYSIS MONSERRAT TOMAS [facility] ACCOUNT BILL [address] [place] [address] * (ABNORMAL) VITAMIN D 25-HYDROXY (10/08/2018 10:34 AM CDT) Vitamin D, 25 Hydroxy 22.2(L) 30.0 - 100.0 ng/mL [facility] ACCOUNT BILL Comment: Vitamin D deficiency has been defined by the [place] of Medicine and an Endocrine Society practice guideline as a level of serum 25-OH vitamin D less than 20 ng/mL (1,2). The Endocrine Society went on to further define vitamin D insufficiency as a level between 21 and 29 ng/mL (2). 1. IOM ([place] of Medicine). 2010. Dietary reference ?? intakes for calcium and D. [place]: The ?? National [employer] Press. 2. Adolph MF, Timmy LANE, Trudy SHELTON, et al. ?? Evaluation, treatment, and prevention of vitamin D ?? deficiency: an Endocrine Society clinical practice ?? guideline. JCEM. 2010; 96(4):1911-30. Blood BLOOD SPECIMEN / Unknown 10/08/2018 10:34 AM CDT 10/08/2018 Narrative Resulting Agency Comment Lab Testing performed at: [facility] [address] [place] [address] ??[facility] [phone] Ashlee Magallon MD LAB - CHEMISTRY GREGORY RIVERA Performing Organization Address [facility] Co de Phone Number [facility] ACCOUNT BILL [address] [place] [address] * RHEUMATOID FACTOR BLOOD QUANTITATIVE (10/08/2018 10:34 AM CDT) Rheumatoid Factor <10.0 0.0 - 13.9 IU/mL [facility] ACCOUNT BILL Blood BLOOD SPECIMEN / Unknown 10/08/2018 10:34 AM CDT 10/08/2018 Narrative Resulting Agency Comment Lab Testing performed at: [facility] [place] [address] ??[facility] [phone] Ashlee Magallon MD LAB - CHEMISTRY GREGORY RIVERA [facility] ACCOUNT BILL [address] [place] [address] * ERYTHROCYTE SEDIMENTATION RATE (10/08/2018 10:34 AM CDT) Erythrocyte Sedimentation Rate Westergren 18 0 - 32 mm/hr [facility] ACCOUNT BILL Blood BLOOD SPECIMEN / Unknown 10/08/2018 10:34 AM CDT 10/08/2018 Narrative Resulting Agency Comment Lab Testing performed at: [facility] [address] ??[place] [phone] Ashlee Magallon MD LAB - HEMATOLOGY ORD ERABLES [facility] ACCOUNT BILL [address] [place] [address] * CYCLIC CITRUL PEPTIDE ANTIBODY IGG/IGA (CCP) (10/08/2018 10:34 AM CDT) CCP Antibodies IgG/IgA 6 0 - 19 units [facility] ACCOUNT BILL Comment: ? Negative ? <20 ? Weak positive ?20 - 39 ? Moderate positive ??40 - 59 ? Strong positive ?>59 Blood BLOOD SPECIMEN / Unknown 10/08/2018 10:34 AM CDT 10/08/2018 Narrative Resulting Agency Comment Lab Testing performed at: [facility] ??[facility] [phone] Ashlee Magallon MD LAB - SEROLOGY ORDER ANAHI [facility] ACCOUNT BILL [address] [place] [address] * C-REACTIVE PROTEIN (10/08/2018 10:34 AM CDT) C-Reactive Protein 9 0 - 10 mg/L [facility] ACCOUNT BILL Blood BLOOD SPECIMEN / Unknown 10/08/2018 10:34 AM CDT 10/08/2018 Narrative Resulting Agency Comment Lab Testing performed at: [facility] [address] ??[facility] [phone] Ashlee Magallon MD LAB - CHEMISTRY ORDE RABLES Performing Organization Address City/[facility]/ZIP Co de Phone Number [facility] ACCOUNT BILL [address] [place] [address] * (ABNORMAL) COMPREHENSIVE METABOLIC PANEL (10/08/2018 10:34 AM CDT) Glucose 84 65 - 99 mg/dL [facility] ACCOUNT BILL BUN 15 6 - 20 mg/dL [facility] ACCOUNT BILL Creatinine 0.60 0.57 - 1.00 mg/dL [facility] ACCOUNT BILL eGFR by MDRD 126 >59 mL/min/1.7 3 [facility] ACCOUNT BILL eGFR by MDRD 145 >59 mL/min/1.7 3 [facility] ACCOUNT BILL BUN/Creatinine Ratio 25(H) 9 - 23 [facility] ACCOUNT BILL Sodium 141 134 - 144 mmol/L [facility] ACCOUNT BILL Potassium 3.8 3.5 - 5.2 mmol/L [facility] ACCOUNT BILL Chloride 105 96 - 106 mmol/L [facility] ACCOUNT BILL CO2 21 20 - 29 mmol/L [facility] ACCOUNT BILL Calcium 8.8 8.7 - 10.2 mg/dL [facility] ACCOUNT BILL Protein Total 6.8 6.0 - 8.5 g/dL [facility] ACCOUNT BILL Albumin 3.9 3.5 - 5.5 g/dL [facility] ACCOUNT BILL Globulin Total 2.9 1.5 - 4.5 g/dL [facility] ACCOUNT BILL Albumin/Globulin Ratio 1.3 1.2 - 2.2 [facility] ACCOUNT BILL Bilirubin Total 0.2 0.0 - 1.2 mg/dL [facility] ACCOUNT BILL Alkaline Phosphatase 45 39 - 117 IU/L [facility] ACCOUNT BILL AST 18 0 - 40 IU/L [facility] ACCOUNT BILL ALT 22 0 - 32 IU/L [facility] ACCOUNT BILL Blood BLOOD SPECIMEN / Unknown 10/08/2018 10:34 AM CDT 10/08/2018 Narrative Resulting Agency Comment Lab Testing performed at: [facility] [address] ??[facility] [phone] Ashlee Magallon MD LAB - CHEMISTRY GREGORY RIVERA [facility] ACCOUNT BILL [address] [place] [address] documented in this encounter Visit Diagnoses Diagnosis Other forms of systemic lupus erythematosus, unspecified organ involvement status (HCC)- Primary Polyarthralgia Pain in joint, multiple sites Malaise and fatigue Pain in both knees, unspecified chronicity Polyarthralgia Pain in joint, multiple sites Polyarthralgia Pain in joint, multiple sites Pain in both knees, unspecified chronicity documented in this encounter Care Teams Superintendent Drilling And Production Relationship Specialty Start Date End Date Huseyin Dangelo MD PCP - General Family Medicine 08/22/17 06/18/19 documented as of this encounter
--- OUTSIDE RECORDS SUMMARY | 2024-02-24 19:40 | XMS_ITS | Encounter Summary ---
Author Organization [facility] Address [address] [facility] [place] [address] Care Team Providers Care Senior Web Analyst Name Role Phone Huseyin Dangelo MD Primary Care Provider [phone] Encounter Details Date Type Department Care Team (Late st Contact Info) Description 10/09/2018 Orders Only [facility] - Rheumatology [address] [place], [place] [phone] Ashlee Magallon MD [address] [facility] [address] [place] [address] Other forms of systemic lupus erythematosus, unspecified [...] Procedure Name Priority Date/Time Associated Diagnosis Comments PROTEIN CREATININE RATIO URINE RANDOM PNL Routine 10/14/2018 8:11 AM CDT Other forms of systemic lupus erythematosus, unspecified organ involvement status (HCC) documented in this encounter Results * (ABNORMAL) PROTEIN CREATININE RATIO URINE RANDOM PNL (10/14/2018 8:11 AM CDT) Creatinine Urine 105.9 Not Estab. mg/dL [facility] ACCOUNT BILL Protein Urine 35.9 Not Estab. mg/dL [facility] ACCOUNT BILL Protein/Creatin ine Ratio 339(H) 0 - 200 mg/g creat [facility] ACCOUNT BILL Urine URINE SPECIMEN OBTAINED BY CLEAN CATCH PROCEDURE / Unknown 10/14/2018 8:11 AM CDT 10/14/2018 Narrative Resulting Agency Comment Lab Testing performed at: [facility] [address] ??[facility] [phone] Ashlee Magallon MD LAB - URINE CHEMISTR Y ORDERABLES [facility] ACCOUNT BILL [address] [place] [address] documented in this encounter Visit Diagnoses Diagnosis Other forms of systemic lupus erythematosus, unspecified organ involvement status (HCC)- Primary documented in this encounter Care Teams Senior Web Analyst Relationship Specialty Start Date End Date Huseyin Dangelo MD PCP - General Family Medicine 08/22/17 06/18/19 documented as of this encounter
--- OUTSIDE RECORDS SUMMARY | 2024-02-24 19:40 | XMS_ITS | Encounter Summary ---
Author Organization [facility] Address [address] [place] [address] Care Team Providers Care Dry Primer Powder Blender Name Role Phone Huseyin Dangelo MD Primary Care Provider [phone] Encounter Details Date Type Department Care Team (Late st Contact Info) Description 10/18/2018 Orders Only [facility] [address] [place] [address] Document, Scanned Social History Tobacco Use Types Packs/Day Years [...] Procedure Name Priority Date/Time Associated Diagnosis Comments LAB RESULTS ORDER Routine 03/26/2018 documented in this encounter Results * LAB RESULTS ORDER (03/26/2018) Scanned Document LAB - THERAPEUTIC DR THOMAS MONITORING ORDERABLES documented in this encounter Visit Diagnoses Not on filedocumented in this encounter Care Teams Dry Primer Powder Blender Relationship Specialty Start Date End Date Huseyin Dangelo MD PCP - General Family Medicine 08/22/17 06/18/19 documented as of this encounter
--- OUTSIDE RECORDS SUMMARY | 2024-02-24 19:40 | XMS_ITS | Encounter Summary ---
Author Organization [facility] Address [address] [place] [address] Care Team Providers Care Rinkman Name Role Phone Huseyin Dangelo MD Primary Care Provider [phone] Reason for Visit * Reason Comments Systemic Lupus Erythematosis Encounter Details Date Type Department Care Team (Late st Contact Info) Description 10/24/2018 11:00 AM CDT Office Visit [facility] - Rheumatology [address] [place] [address] Ashlee Magallon MD [address] [place] [address] Proteinuria, unspecified type (Primary Dx); Other forms of systemic lupus erythematosus, unspecified organ involvement status (HCC); Dysuria; Encounter for long-term (current) use of medications [...] Sign Reading Time Taken Comments Blood Pressure 131/92 10/24/2018 10:44 AM CDT Pulse 114 10/24/2018 10:44 AM CDT Temperature 36.9 ??C (98.4 ??F) 10/24/2018 10:44 AM C DT Respiratory Rate - - Oxygen Saturation 95% 10/24/2018 10:44 AM CDT Inhaled Oxygen Concentration - - Weight 65 kg (143 lb 3.2 oz) 10/24/2018 10:44 AM CDT Height 157.5 cm (5' 2 ) 10/24/2018 10:44 AM CDT Body Mass Index 26.19 10/24/2018 10:44 AM CDT documented in this encounter Patient Instructions * Patient Instructions* Toni Abraham - 10/24/2018 11:13 AM CDT Start taking Imuran 50 mg once daily for 7 days, then increase to 50 mg (1 tab) in AM and 25 mg (1/2 tab) in PM for 7 days, then complete labs. Continue taking Arava 10 mg daily and Prednisone as directed, then 10 mg daily as your baseline dose for now. An order has been placed for an Echocardiogram and a PFT. Please contact the scheduling department at [phone] to schedule both tests. I will obtain a prior authorization through your insurance company on the Echo. Complete labs in 14 days at [facility] and then every 14 days thereafter. This will include a urinalysis each time. See Nephrology as scheduled. Follow up with Dr Magallon in 3 months. Thank you for choosing [facility] for your healthcare needs. If you have any questions, you may contact Toni de souza, at [phone], option 1 then option 1 again. documented in this encounter Progress Notes * Ashlee Magallon MD - 10/24/2018 10:36 AM CDT Images from the original note were not included. DIAGNOSES: (R80.9) Proteinuria, unspecified type (primary encounter diagnosis) Plan: URINALYSIS REFLEX MICROSCOPIC REFLEX CULTURE, PROTEIN CREATININE RATIO URINE RANDOM PNL (M32.8) Other forms of systemic lupus erythematosus, unspecified organ involvement status Plan: URINALYSIS REFLEX MICROSCOPIC REFLEX CULTURE, PROTEIN CREATININE RATIO URINE RANDOM PNL SUBJECTIVE: - pt here to discuss results and plan (appointment moved up since pt was calling and emailing frequently) - I talked with pt over the weekend when she had s/e to Imuran (n/v/d) after 3 doses (started on 50mg BID) - she has been requesting Benlysta - she has new proteinuria that we are repeating today, has had low level proteinuria for a few months looking back - pt has had multiple ER visits for pain in last few months (last [facility] early September) - has had w/u for DVTs, PE negative - nauseated, flu like sx - 3 mos on arava - more stomach issues since it was started - she went to urgent care after hitting her head at work and was told she may have a concussion - on prednisone 10mg a day Did not increase as suggested (joint pain) - she has tachycardia with increased prednisone - HCQ wasn't working in the past - reactions to MMF - facial flushing intermittently lasting a few minutes at a time, worried it may be lupus malar rash; not pruritic nor painful - her reports of pain are waxing and waning - she also c/o chest pain - PE has been neg, cxr neg, no echo done (recent chest CT does not comment on pericardium) Review of Systems: General: -fatigue, -fever, -wt loss/gain, daily functioning not limited HEENT: -dry eyes, -dry mouth, -eye redness, -eye pain, -oral/nasal ulcers, - nasal crusting, -ear infections, - sinus fullness CV: +chest pain Resp: -cough, -SOB GI: -abd pain, -constipation, -nausea, -vomiting, -diarrhea, -blood/mucus, - GERD/reflux symptoms : -urine changes, -dysuria, -hematuria MSK: see HPI Skin: -rash, -lesions, -hair loss, -nail changes, -Raynaud, -photosensitivity, -acrocyanosis Neuro: -SHELTON, -vision changes, -muscle weakness, -paresthesias Psych: -depression, -anxiety ROS otherwise negative Current Outpatient Medications Medication Sig Dispense Refill ??? ALPRAZolam (XANAX) 0.25 MG tablet Take 0.25 mg by mouth 3 times daily as needed for Anxiety ??? azaTHIOprine (IMURAN) 50 MG tablet Take 1 tablet by mouth 2 times daily (Patient not taking: Reported on 10/24/2018) 60 tablet 2 ??? diclofenac potassium (CATAFLAM) 50 MG tablet Take 50 mg by mouth 3 times daily ??? leflunomide (ARAVA) 10 MG tablet Take 20 mg by mouth once daily ??? omeprazole (PRILOSEC) 20 MG capsule Take 20 mg by mouth daily before breakfast ??? predniSONE (DELTASONE) 5 MG tablet Take 4 tabs daily for 7 days, then decrease by one tab every7 days until reaching 10 mg as your baseline dose. 49 tablet 0 ??? predniSONE (DELTASONE) 5 MG tablet Take 10 mg by mouth once daily No current facility-administered medications for this visit. Objective: BP 131/92 (BP SITE: LEFT ARM, BP POSITION: SITTING, BP CUFF SIZE: 11) Pulse (!) 114 Temp 98.4 ??F (36.9 ??C) (Oral) Ht 1.575 m (5' 2 ) Wt 65 kg (143 lb 3.2 oz) SpO2 95% BMI 26.19 kg/m?? General: no distress, cooperative Skin: no [...] grossly intact, alert, muscle strength 5/5 MSK: mild synovitis in PIPs, MCPs, knees RHEUM COY 10/24/2018 10/08/2018 MHAQ 2.7 7 Pain 7 10 Global 7 10 Rapid 3 16.7 27 Sleep 2 7.5 GI 7.5 9.5 Fatigue 7.5 9.5 Recent Labs Component Name 10/01/18204909/25/18 1103 08/22/18 1121 WBC 3.9* 4.8 7.0 HGB 10.7* 11.6* 10.8* PLTCOUNT 238 277 333 MCV 83.3 83.6 81.2 Recent Labs Component Name 10/08/18 1034 10/01/18204909/25/18 1103 08/22/18 1121 CREATININE 0.60 0.72 0.8 0.72 BUN 15 17 20 11 SODIUM 141 141 - 140 POTASSIUM 3.8 3.5 3.6 4.0 Recent Labs Component Name 10/08/18 1034 10/01/18204909/25/18 1103 08/22/18 1121 AST 18 16 16 15 ALT 22 23 19 12* ALKPHOS 45 42 47 43 TBIL 0.2 0.3 - 0.4 Recent Labs Component Name 10/08/18 1034 10/01/18204909/25/18 1103 CRP 9 0.80* <0.5 Recent Labs Component Name 10/08/18103310/01/18204908/22/18 1121 SEDRATE 18 11 9 Results for CARITO ELDER ( ) as of 10/24/2018 10:33 Ref. Range 10/08/2018 10:35 10/08/2018 11:50 BARAK Unknown Positive (Abnormal) PCNA Pattern Unknown [...] Ref Range: 0.0 - 0.9 AI <0.2 Perez/SECURITY SPECIALIST Antibodies Latest Ref Range: 0.0 - 0.9 AI <0.2 Doris-1 Antibody Latest Ref Range: 0.0 - 0.9 AI <0.2 Antiribosomal P Antibody Latest Ref Range: 0.0 - 0.9 AI <0.2 SECURITY SPECIALIST Antibody Latest Ref Range: 0.0 - 0.9 [...] Range: 14 - 44 mg/dL 10 (L) TPMT Activity Latest Units: Units/mL RBC 19.4 Results for CARITO ELDER ( ) as of 10/24/2018 10:33 Ref. Range 10/14/2018 08:11 Creatinine Urine Latest Ref Range: Not Estab. mg/dL 105.9 Protein Urine Latest Ref Range: Not Estab. mg/dL 35.9 Protein/Creatinine Ratio Latest Ref Range: 0 - 200 mg/g creat 339 (H) Recent Labs Component Name 10/08/18 1034 08/22/18 1121 07/05/18 1549 CK 10* 16* 23* ANCILLARY STUDIES: BILATERAL HIPS 2 VIEWS EACH ?? INDICATION: 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 ?? FINDINGS: Two views of each hip without prior for comparison shows no acute fracture, subluxation or dislocation. If symptoms persist, follow-up exam may be of further use to exclude an occult process. ?? IMPRESSION ? NO ACUTE OSSEOUS ABNORMALITY. ?? Edited by Nedra Morales on 10/08/2018 12:16 PM ?? Reading Radiologist: Faizan Viramontes MD on 10/08/2018 at 1:51 PM RIGHT KNEE FOUR VIEWS LEFT KNEE FOUR VIEWS ?? INDICATION: Knee pain history of lupus ?? FINDINGS: No fracture. Mild lateral patellar subluxation bilaterally. Small bilateral joint effusions. No erosions or osteopenia. ?? Edited by Nedra Morales on 10/08/2018 12:28 PM ?? Reading Radiologist: Bon Goldstein MD on 10/08/2018 at 1:15 PM CERVICAL SPINE SIX VIEWS ?? HISTORY: Neck pain, lupus. ?? FINDINGS: Cervical spine is straightened. Alignment and disc spacing are normal. No instability with flexion or extension. No erosions or osteopenia. Lung apices are clear. ?? IMPRESSION ? Mild straightening. ? Edited by Christina Ontiveros on 10/08/2018 12:32 PM ?? Reading Radiologist: Bon Goldstein MD on 10/08/2018 at 1:[address] OF THE CHEST WITH IV CONTRAST [...] with her symptoms. She states she visited [facility] ER last week for similar symptoms and [...] or syntax problems by a trained medical record transcriber. For questions about the report, please contact the Radiology Department. ?? FINDINGS: I do not see any large, central intra-arterial filling defects in the pulmonary arteries. The lungs are clear of confluent infiltrates. There are no measurable pleural effusions. The heart size is normal. ?? IMPRESSION ? Negative for pulmonary embolism. ? Reading Radiologist: Demario Costello MD on 10/02/2018 at 12:48 [place] [address] Lower Extremity Venous Ultrasound Report ?? Pat.Name: CARITO ELDER Pat.ID: [id number] .Date: 10/02/2018 Refer.MD: rosie Faye Exam Time: 9:28:00 AM Study Type:LE Venous Age: 3 1990,28Y Sex: FEMALE Sonogrphr: Tricia Medina RDMS, RVT Pat. Stat.:Inpatient Room: ER 30 ?? Reason for Study: Swelling -Leg, bilateral, + D-Dimer Procedures: Lower Extremity Venous - Bilateral ?? Race: 2 Visit ID: [id number] ? ++++++++++++++++++++++++++++++++++++ SUMMARY: ++++++++++++++++++++++++++++++++++++ No evidence of deep venous thrombosis of either the left or right lower extremity. ? ASSESSMENT & PLAN: 1. SLE with MSK manifestations, proteinuria - Pos BARAK, chromatin, dsDNA, SECURITY SPECIALIST, low complements - will trial Imuran again, take 50mg qd for one week then increase to 50mg qam and 25mg qpm x 1 week, labs in 2 weeks - cont Arava 10mg a day for now, prednisone 10mg a day, ca/d supplements - echocardiogram for CP - cxr ok last month - never had echo and at risk of pericarditis, also at risk of pHTN due to SECURITY SPECIALIST ab - also PFTs due to lupus to r/o ILD (rafat with SECURITY SPECIALIST ab) Follow up in 3 months. All of the patient's questions and concerns were addressed. Ashlee Magallon MD Rheumatology [facility] [place], [place] Office phone: [phone] Orders Placed This Encounter ??? URINALYSIS REFLEX MICROSCOPIC REFLEX CULTURE ??? PROTEIN CREATININE RATIO URINE RANDOM PNL documented in this encounter Miscellaneous Notes * Addendum Note - Toni Abraham - 10/24/2018 2:55 PM CDTAddended by: TONI ABRAHAM on: 10/24/2018 02:55 PM Modules accepted: Orders documented in this encounter Plan of Treatment Not on file documented as of this encounter Procedures Procedure Name Priority Date/Time Associated Diagnosis Comments URINALYSIS MICROSCOPIC ONLY REFLEXED Routine 10/24/2018 11:34 AM CDT Proteinuria, unspecified type Other forms of systemic lupus erythematosus, unspecified organ involvement status (HCC) URINALYSIS REFLEX MICROSCOPIC REFLEX CULTURE Routine 10/24/2018 11:34 AM CDT Proteinuria, unspecified type Other forms of systemic lupus erythematosus, unspecified organ involvement status (HCC) PROTEIN CREATININE RATIO URINE RANDOM PNL Routine 10/24/2018 11:34 AM CDT Proteinuria, unspecified type Other forms of systemic lupus erythematosus, unspecified organ involvement status (HCC) documented in this encounter Results * URINALYSIS MICROSCOPIC ONLY REFLEXED (10/24/2018 11:34 AM CDT) WBC UA 0-5 0 - [...] not needed. Mucus UA Present Not Estab. /LPF [facility] ACCOUNT BILL Bacteria UA None seen None seen/Few [facility] ACCOUNT BILL Yeast UA NOT NEEDED [facility] ACCOUNT BILL Comment:Ancillary determined the test is not needed. Trichomonas UA NOT NEEDED [facility] ACCOUNT BILL Comment:Ancillary determined the test is not needed. Comment Urine NOT NEEDED [facility] ACCOUNT BILL Comment:Ancillary determined the test is not needed. 10/24/2018 11:3 4 AM CDT 10/24/2018 Narrative Resulting Agency Comment Lab Testing performed at: [facility] [id number] [facility] ??[facility] [id number] Ashlee Magallon MD LAB - URINALYSIS ORD ERABLES [facility] ACCOUNT BILL [address] [place] [address] * (ABNORMAL) PROTEIN CREATININE RATIO URINE RANDOM PNL (10/24/2018 11:34 AM CDT) Creatinine Urine 107.8 Not Estab. mg/dL [facility] ACCOUNT BILL Protein Urine 27.9 Not Estab. mg/dL [facility] ACCOUNT BILL Protein/Creatin ine Ratio 259(H) 0 - 200 mg/g creat [facility] ACCOUNT BILL Urine URINE SPECIMEN OBTAINED BY CLEAN CATCH PROCEDURE / Unknown 10/24/2018 11:34 AM CDT 10/24/2018 Narrative Resulting Agency Comment Lab Testing performed at: [facility] [address] ??[facility] [id number] Ashlee Magallon MD LAB - URINE CHEMISTR Y ORDERABLES Performing Organization Address City/[facility]/ZIP Co de Phone Number [facility] ACCOUNT BILL [address] [place] [address] * (ABNORMAL) URINALYSIS REFLEX MICROSCOPIC REFLEX CULTURE (10/24/2018 11:34 AM CDT) Specific [place] UA 1.021 1.005 - 1.030 [facility] ACCOUNT BILL pH UA 6.0 5.0 - 7.5 [facility] ACCOUNT BILL Color UA Yellow Yellow [facility] ACCOUNT BILL Appearance Clear Clear [facility] ACCOUNT BILL Leukocyte UA Negative Negative [facility] ACCOUNT BILL Protein UA 1+(A) Negative/Tra ce [facility] ACCOUNT BILL Glucose UA Negative Negative [facility] ACCOUNT BILL Ketone UA Negative Negative [facility] ACCOUNT BILL Occult Blood Urine Trace(A) Negative [facility] ACCOUNT BILL Bilirubin UA Negative [...] OBTAINED BY CLEAN CATCH PROCEDURE / Unknown 10/24/2018 11:34 AM CDT 10/24/2018 Narrative Resulting Agency Comment Lab Testing performed at: [facility] [address] ??[facility] [id number] Ashlee Magallon MD LAB - URINALYSIS ORD ERABLES Performing Organization Address City/[facility]/ZIP Co de Phone Number [facility] ACCOUNT BILL [address] [place] [address] documented in this encounter Visit Diagnoses Diagnosis Proteinuria, unspecified type- Primary Other forms of systemic lupus erythematosus, unspecified organ involvement status (HCC) Dysuria Encounter for long-term (current) use of medications Encounter for long-term (current) use of other medications documented in this encounter Care Teams Rinkman Relationship Specialty Start Date End Date Huseyin Dangelo MD PCP - General Family Medicine 08/22/17 06/18/19 documented as of this encounter
--- OUTSIDE RECORDS SUMMARY | 2024-02-24 19:40 | XMS_ITS | Encounter Summary ---
Author Organization [facility] Address [address] [place] [address] Care Team Providers Care Program Architect Name Role Phone Huseyin Dangelo MD Primary Care Provider Reason for Visit * Reason Comments Vaginal Bleeding Patient states Dr. Nic mohan, [facility] wanted her to be seen in the ER due to cramping, vaginal bleeding, LMP 5-18-17. Cramps PROBLEM Encounter Details Date Type Department Care Team (Late st Contact Info) Description 08/22/2017 4:58 PM CDT - 08/22/2017 6:29 PM CDT Emergency ER at [address] [address] Antepartum hemorrhage (HCC) Discharge Disposition: Left Against Medical Advice/Discontinued Care Social History Tobacco Use Types Packs/Day Years Used Date Smoking Tobacco: Never Assessed Sex and Gender Information Value Date Recorded Sex Assigned at Not on file Gender Identity Not on file Sexual Orientation Not on file documented as of this encounter ED Notes * Sherry Tyler RN - 08/22/2017 6:27 PM CDT Patient LWBS before triage. Patient did Not notify this RN that she was leaving. Patient called fortriage numerous times with no answer. documented in this encounter Plan of Treatment Not on file documented as of this encounter Visit Diagnoses Diagnosis Antepartum hemorrhage (HCC) Unspecified antepartum hemorrhage, unspecified as to episode of care documented in this encounter Care Teams Program Architect Relationship Specialty Start Date End Date Huseyin Dangelo MD PCP - General Family Medicine 08/22/17 06/18/19 documented as of this encounter
--- OUTSIDE RECORDS SUMMARY | 2024-02-24 19:40 | XMS_ITS | Encounter Summary ---
Author Organization [facility] Address [address] [place] [address] Care Team Providers Care Comprehensive Ophthalmologist Name Role Phone Huseyin Dangelo MD Primary Care Provider [phone] Reason for Visit * Radiology Services (Routine) - Closed Specialty Diagnoses / Procedures Referred By Contac t Referred To Contact Diagnoses Uterine bleeding Procedures US OB LESS THAN 14 WKS W TRANSVAG US OB LESS 14 WKS W TRANSV W DOPP Ernie Love MD [employer] [address] [place] [address] [facility] [address] [place] [phone] Referral ID Status Reason Start Date Expiration Date Visits Re quested Visits Authorized [id number] Closed 09/12/2017 03/11/2018 1 1 Encounter Details Date Type Department Care Team (Latest Contact Info) Description 09/12/2017 3:00 PM CDT - 09/12/2017 11:59 PM CDT Hospital Encounter [facility] Imaging Services - Ultrasound [address] [place] [address] Ernie Love MD [employer] [address] [place] [address] Discharge Disposition: Home or Self Care Social [...] Sig Dispensed Refills Start Date End Date nitrofurantoin monohyd macro crystals (MACROBID) 100 MG capsule Take 1 capsule by mouth 2 times daily 10 capsule 08/22/2017 08/22/2018 documented as of this encounter Plan of Treatment Not on file documented as of this encounter Procedures Procedure Name Priority Date/Time Associated Diagnosis Comments US OB LESS THAN 14 WKS W TRANSVAG Routine 09/12/2017 4:46 PM CDT Uterine bleeding documented in this encounter Results * US OB LESS THAN 14 WKS [...] 09/12/2017 at 4:58 PM Ernie Love MD ORDERABLES documented in this encounter Visit Diagnoses Diagnosis Uterine bleeding Unspecified disorder of menstruation and other abnormal bleeding from female genital tract documented in this encounter Care Teams Comprehensive Ophthalmologist Relationship Specialty Start Date End Date Huseyin Dangelo MD PCP - General Family Medicine 08/22/17 06/18/19 documented as of this encounter
--- OUTSIDE RECORDS SUMMARY | 2024-02-24 19:40 | XMS_ITS | Encounter Summary ---
Author Organization [facility] Address [address] [place] [address] Care Team Providers Care Rn Document Improvement Name Role Phone Huseyin Dangelo MD Primary Care Provider [phone] Reason for Visit * Reason Comments Vaginal Bleeding 9 weeks , cr amping, dark red blood started this am, cramping started last night after working out. Encounter Details Date Type Department Care Team (Late st Contact Info) Description 09/19/2017 8:00 AM CDT - 09/19/2017 10:16 AM CDT Emergency ER at [address] [address] Threatened miscarriage (HCC) (Primary Dx); Vaginal bleeding in , first trimester (HCC) Discharge Disposition: Home or Self Care Social History Tobacco Use Types Packs/Day Years Used Date Smoking Tobacco: Every Day Cigarettes Smokeless Tobacco: Never Alcohol Use Standard Drinks/Week Comments Yes 0 (1 standard drink = 0.6 oz pur e alcohol) socailly Comments Yes Sex and Gender Information Value Date Recorded Sex Assigned at Not on file Gender Identity Not on file Sexual Orientation Not on file documented as of this encounter Last Filed Vital Signs Vital Sign Reading Time Taken Comments Blood Pressure 115/78 09/19/2017 10:15 AM CDT Pulse 70 09/19/2017 10:15 AM CDT Temperature 36.7 ??C (98 ??F) 09/19/2017 10:15 AM CDT Respiratory Rate 16 09/19/2017 10:15 AM CDT Oxygen Saturation 99% 09/19/2017 10:15 AM CDT Inhaled Oxygen Concentration - - Weight 64.4 kg (142 lb) 09/19/2017 8:13 AM CDT Height 157.5 cm (5' 2 ) 09/19/2017 7:57 AM CDT Body Mass Index 25.97 09/19/2017 7:57 AM CDT documented in this encounter Discharge Instructions * Discharge Instructions* Seng Love PA-C - 09/19/2017 9:57 AM CDT Subchorionic Hemorrhage WHAT YOU NEED TO KNOW: A subchorionic hemorrhage (YOSEPH), or hematoma, is a collection of blood between the placenta and theuterus. YOSEPH usually develops late in the first trimester. The bleeding usually reabsorbs into your body by 20 weeks of . Most pregnancies progress without problems. You may have occasional spotting or light bleeding throughout your . DISCHARGE INSTRUCTIONS: Return to the emergency department if: ?? You have a fever. ?? You have abdominal pain. ?? You have a sudden increase in bleeding. Contact your healthcare provider if: ?? Your bleeding has increased. ?? You have questions or concerns about your condition or care. Pelvic rest: Do not have sex, douche, or use tampons. Do not strain or lift heavy objects. These activities may cause contractions or infection and put you or your baby at risk. You may need to rest more than usual. Do daily activities as directed. Follow up with your healthcare provider as directed: You may need to return frequently for ultrasounds. Write down your questions so you remember to ask them during your visits. ?? 2017 [employer] Information is for End User's use only and may not be sold, redistributed or otherwise used for commercial purposes. All illustrations and images included in CareNotes?? are the copyrighted property of [employer] or [employer]. The above information is an technical aide only. It is not intended as medical [...] 08/22/2017 08/22/2018 documented as of this encounter ED Notes * Tadeo Sutton RN - 09/19/2017 10:15 AM CDT Pt. Given discharge instructions. Pt. States understanding. Pt. Shows no signs of distress at this time. Pt. Ambulatory out of ED. * Tadeo Sutton RN - 09/19/2017 9:27 AM CDT Attempted heart tones without any success, TSERING Ellsworth updated. * Seng Love PA-C - 09/19/2017 8:51 AM CDT Provider contact with the patient: 09/19/2017 08:51 Carito Rausch [id number] [facility] EMERGENCY DEPARTMENT History Chief Complaint Patient presents with ??? Vaginal Bleeding 9 weeks , cramping, dark red blood started this am, cramping started last night after working out. HPI Comments: 27-year-old female presents to the ED with concerns for bleeding in . The patient is 9w1d gestational age. She states she was at the gym yesterday performing light weight lifting and shortly afterwards began to experience right lower quadrant abdominal pain. Shortly after waking today she began to experience vaginal bleeding which has been mild and persistent since that time. She continues to complain of mild right lower quadrant abdominal pain as well. The patient underwent pelvic ultrasound on 09/12/2017 with the following results: ???1. Viable intrauterine gestation demonstrating normal interval growth from August 22 with a gestational age calculated at 8 weeks and 1 day of gestation. 2. Small subchorionic hemorrhage is identified She denies recent history of fever, chills, nausea, vomiting, dysuria, or hematuria. No past medical history on file. No past surgical history on file. No [...] ??? Not on file Social History Narrative No Known Allergies Review of Systems Review of Systems Gastrointestinal: Positive for abdominal pain. Genitourinary: Vaginal bleeding All other systems reviewed and are negative. Physical Exam BP 120/80 Pulse 72 Temp 97.7 ??F (36.5 ??C) Resp 16 Ht 1.575 m (5' 2 ) Wt 64.4 kg (142 lb) LMP 07/12/2017 (Exact Date) SpO2 99% BMI 25.97 kg/m2 Physical Exam Constitutional: Vital signs are normal. She appears well-developed and well- nourished. No distress. HENT: Head: Normocephalic and atraumatic. Eyes: Conjunctivae are normal. Cardiovascular: Normal rate, regular rhythm, S1 normal, S2 normal and normal heart sounds. Exam reveals no gallop and no friction rub. No murmur heard. Pulmonary/Chest: Effort normal and breath sounds normal. No respiratory distress. She has no wheezes. She has no rales. She exhibits no tenderness. Abdominal: Very minimal right lower quadrant tenderness to palpation; no guarding, rigidity, or rebound tenderness. Neurological: She is alert. Skin: Skin is warm and dry. She is not diaphoretic. Psychiatric: She has a normal mood and affect. Her speech is normal and behavior is normal. Judgment and thought content normal. Nursing note and vitals reviewed. Medications Current Outpatient Prescriptions Medication Sig Dispense Refill ??? nitrofurantoin monohyd macro crystals (MACROBID) 100 MG capsule Take 1 capsule by mouth 2 timesdaily 10 capsule 0 Procedures Procedures ECG Interpretation ECG Interpretation Lab/SPO2 Interpretation Hospital Encounter on 09/19/17 BASIC METABOLIC PANEL (CALCIUM TOTAL) Result Value Ref Range Glucose 79 74 - 106 mg/dL Sodium 136 136 - 145 mmol/L Potassium 4.2 3.5 - 5.1 mmol/L Chloride 106 98 - 107 mmol/L CO2 23 22 - 31 mmol/L Calcium 9.1 8.5 - 10.1 mg/dL Anion Gap 7 (L) 8 - 16 mmol/L BUN 11 7 - 21 mg/dL Creatinine 0.59 0.50 - 1.30 mg/dL eGFR MDRD >60 >60 mL/min/1.73m2 eGFR MDRD AFR AMR >60 >60 mL/min/1.73m2 CBC W AUTO DIFFERENTIAL Result Value Ref Range WBC 5.9 4.4 - 10.7 x10E9/L WBC Corrected x10E9/L RBC 4.15 3.80 - 5.20 x10E12/L Hemoglobin 12.7 12.0 - 15.6 gm/dL Hematocrit 37.4 35.9 - 45.5 % MCV 90.1 80.7 - 98.3 fl MCH 30.6 26.7 - 34.0 pg MCHC 34.0 30.8 - 35.9 gm/dL Plt Ct 129 (L) 153 - 416 x10E9/L RDW-CV 13.1 12.1 - 14.9 % MPV 10.3 9.4 - 12.9 fl Neutro 80.8 (H) 44.0 - 73.0 % Lymph 11.9 (L) 20.0 - 43.0 % Hughes 5.8 5.0 - 13.0 % Eos 1.0 0.0 - 6.0 % Baso 0.2 0.0 - 2.0 % Immature Grans 0.3 0 - 1 % Neutro Abs 4.76 2.01 - 7.14 x10E9/L Lymphs Absolute 0.70 (L) 1.07 - 3.94 x10E9/L Hughes Abs 0.34 0.26 - 1.07 x10E9/L Eos Absolute 0.06 0 - 0.47 x10E9/L Baso Abs 0.01 0 - 0.08 x10E9/L Immature Grans (Abs) 0.02 0.00 - 0.06 x10E9/L NRBC Auto 0 /100 WBC HCG BETA BLOOD QUANTITATIVE Result Value Ref Range HCG Quant Serum 52415 mIU/mL HEPATIC FUNCTION PANEL Result Value Ref Range Alkaline Phosphatase 38 38 - 126 U/L ALT/SGPT 24 13 - 61 U/L AST/SGOT 31 5 - 40 U/L Protein Total 7.7 6.4 - 8.2 gm/dL Albumin 3.4 3.4 - 5.0 gm/dL Bili Total 0.4 0.2 - 1.0 mg/dL Bili Conj Direct <0.1 0 - 0.3 mg/dL No orders to display Progress Notes ED Course 9:58 AM Patient well-appearing at this time. Patient presents to the ED with mild right lower quadrant abdominal pain and mild vaginal bleeding. Patient with recent pelvic ultrasound which shows viable IUP with subchorionic hemorrhage. Subchorionic hemorrhage likely the etiology of her current bleeding. I performed a bedside ultrasound which again showed an IUP with positive cardiac activity. Patient has not experienced vaginal bleeding since arriving to the ED. HCG increasing compared toprevious encounter. Patient advised to abstain from strenuous activity and abstain from sexual intercourse at this time. She is to follow up with her TEST CELL TECHNICIAN for further evaluation and management and is to return to the ED if he develops more severe abdominal pain or heavy bleeding. ED Course Medical Decision Making Orders Placed This Encounter ??? BASIC METABOLIC PANEL (CALCIUM TOTAL) ??? CBC W AUTO DIFFERENTIAL ??? HCG BETA BLOOD QUANTITATIVE ??? SLIDE SCAN HEMATOLOGY ??? HEPATIC FUNCTION PANEL ??? AND Linked Order Group ??? 0.9% NaCl injection 3 mL ??? 0.9% NaCl injection 1-10 mL Clinical Impression Final diagnoses: Threatened miscarriage (Primary) Vaginal bleeding in , first trimester * Tadeo Sutton RN - 09/19/2017 8:41 AM CDT PT comes to the ED c/o heavy dark vaginal bleeding and pelvic cramping since waking this morning. Pt was lifting weights last night and felt strain and is concerned that has something to do with cause of bleeding. Pt has pad on currently. LMP 07/12/17, pt thinks she is about 9 weeks .Pt denies urinary sx's, fever, n/v. TSERING Ellsworth at bedside. documented in this encounter Plan of Treatment Not on file documented as of this encounter Procedures Procedure Name Priority Date/Time Associated Diagnosis Comments SLIDE SCAN HEMATOLOGY STAT 09/19/2017 8:39 AM CDT CBC W AUTO DIFFERENTIAL STAT 09/19/2017 8:39 AM CDT BASIC METABOLIC PANEL (CALCIUM TOTAL) STAT 09/19/2017 8:39 AM CDT HCG BETA BLOOD QUANTITATIVE Add on 09/19/2017 8:39 AM CDT HEPATIC FUNCTION PANEL Add on 09/19/2017 8:39 AM CDT documented in this encounter Results * HEPATIC FUNCTION PANEL (09/19/2017 8:39 AM CDT) Pathologist [facility] Alkaline Phosphatase 38 38 - 126 U/L 09/19/2017 9:28 AM CDT [facility] ALT 24 13 - 61 U/L 09/19/2017 9:28 AM CDT [facility] AST 31 5 - 40 U/L 09/19/2017 9:28 AM CDT [facility] Protein Total 7.7 6.4 - 8.2 gm/dL 09/19/2017 9:28 AM CDT [facility] Albumin 3.4 3.4 - 5.0 gm/dL 09/19/2017 9:28 AM CDT [facility] Bilirubin Total 0.4 0.2 - 1.0 mg/dL 09/19/2017 9:28 AM CDT [facility] Bilirubin Direct <0.1 0 - 0.3 mg/dL 09/19/2017 9:28 AM CDT [facility] Blood BLOOD SPECIMEN / Unknown Venipuncture / Unknown 09/19/2017 8:39 AM CDT 09/19/2017 8:45 AM CDT Seng Love PA-C LAB - BONDERIZER RY ORDERABLES [facility] [address] [place] [address] * (ABNORMAL) SLIDE SCAN HEMATOLOGY (09/19/2017 8:39 AM CDT) [facility] Hematology Reflex Status Peripheral Slide Scan verified 09/19/2017 10:20 AM CDT [facility] Platelet Estimation Adequate platelets Normal, Adequate platelets 09/19/2017 10:20 AM CDT [facility] Clumped Platelets 1+(A) None 09/19/2017 10:20 AM CDT [facility] Blood BLOOD SPECIMEN / Unknown Venipuncture / Unknown 09/19/2017 8:39 AM CDT 09/19/2017 8:45 AM CDT Narrative [facility] - 09/19/2017 10:20 AM CDT Automated platelet count is falsely decreased due to clumping. Andrzej Tipton MD LAB - HEMATOLOGY ORD ERABLES [facility] [address] [place] [address] * HCG BETA BLOOD QUANTITATIVE (09/19/2017 8:39 AM CDT) [facility] hCG Quantitative 66,585 mIU/mL 09/20/19 18 9:40 AM CDT [facility] Blood BLOOD SPECIMEN / Unknown Venipuncture / Unknown 09/19/2017 8:39 AM CDT 09/19/2017 8:45 AM CDT Narrative [facility] - 09/19/2017 9:40 AM CDT ? hCG Reference Range, mIU/mL: ? Males [...] a serum FSH >20 IU/L makes unlikely. Seng Love PA-C LAB - BONDERIZER RY ORDERABLES [facility] [address] [place] [address] * (ABNORMAL) CBC W AUTO DIFFERENTIAL (09/19/2017 8:39 AM CDT) WBC 5.9 4.4 - 10.7 x10E9/L 09/19/2017 8:53 AM CDT [facility] WBC Corrected x10E9/L 09/19/2017 8:53 AM CDT [facility] RBC 4.15 3.80 - 5.20 x10E12/L 09/19/2017 8:53 AM CDT [facility] Hemoglobin 12.7 12.0 - 15.6 gm/dL 09/19/2017 8:53 AM CDT [facility] Hematocrit 37.4 35.9 - 45.5 % 09/19/2017 8:53 AM [facility] MCV 90.1 80.7 - 98.3 fl 09/19/2017 8:53 AM [facility] MCH 30.6 26.7 - 34.0 pg 09/19/2017 8:53 AM [facility] MCHC 34.0 30.8 - 35.9 gm/dL 09/19/2017 8:53 AM [facility] Platelet Count 129(L) 153 - 416 x10E9/L 09/19/2017 8:53 AM [facility] RDW-CV 13.1 12.1 - 14.9 % 09/19/2017 8:53 AM [facility] MPV 10.3 9.4 - 12.9 fl 09/19/2017 8:53 AM [facility] Neutrophils % 80.8(H) 44.0 - 73.0 % 09/19/2017 8:53 AM [facility] Lymphocytes % 11.9(L) 20.0 - 43.0 % 09/19/2017 8:53 AM [facility] Monocytes % 5.8 5.0 - 13.0 % 09/19/2017 8:53 AM [facility] Eosinophils % 1.0 0.0 - 6.0 % 09/19/2017 8:53 AM [facility] Basophils % 0.2 0.0 - 2.0 % 09/19/2017 8:53 AM [facility] Immature Granulocytes 0.3 0 - 1 % 09/19/2017 8:53 AM [facility] Neutrophil Absolute 4.76 2.01 - 7.14 x10E9/L 09/19/2017 8:53 AM [facility] Lymphocytes Absolute 0.70(L) 1.07 - 3.94 x10E9/L 09/19/2017 8:53 AM [facility] Monocytes Absolute 0.34 0.26 - 1.07 x10E9/L 09/19/2017 8:53 AM [facility] Eosinophils Absolute 0.06 0 - 0.47 x10E9/L 09/19/2017 8:53 AM [facility] Basophils Absolute 0.01 0 - 0.08 x10E9/L 09/19/2017 8:53 AM [facility] Immature Granulocytes Absolute 0.02 0.00 - 0.06 x10E9/L 09/19/2017 8:53 AM [facility] nRBC Auto 0 /100 WBC 09/19/2017 8:53 AM [facility] Blood BLOOD SPECIMEN / Unknown Venipuncture / Unknown 09/19/2017 8:39 AM CDT 09/19/2017 8:45 AM CDT Andrzej Tipton MD LAB - HEMATOLOGY ORD ERABLES [facility] [address] [employer] [place] [address] * (ABNORMAL) BASIC METABOLIC PANEL (CALCIUM TOTAL) (09/19/2017 8:39 AM CDT) Glucose 79 74 - 106 mg/dL 09/19/2017 9:01 AM [facility] Sodium 136 136 - 145 mmol/L 09/19/2017 9:01 AM [facility] Potassium 4.2 3.5 - 5.1 mmol/L 09/19/2017 9:01 AM [facility] Chloride 106 98 - 107 mmol/L 09/19/2017 9:01 AM [facility] CO2 23 22 - 31 mmol/L 09/19/2017 9:01 AM [facility] Calcium 9.1 8.5 - 10.1 mg/dL 09/19/2017 9:01 AM [facility] Anion Gap 7(L) 8 - 16 mmol/L 09/19/2017 9:01 AM [facility] BUN 11 7 - 21 mg/dL 09/19/2017 9:01 AM [facility] Creatinine 0.59 0.50 - 1.30 mg/dL 09/19/2017 9:01 AM [facility] eGFR by MDRD >60 >60 mL/min/1.7 3m2 09/19/2017 9:01 AM [facility] eGFR by MDRD >60 >60 mL/min/1.7 3m2 09/19/2017 9:01 AM [facility] Blood BLOOD SPECIMEN / Unknown Venipuncture / Unknown 09/19/2017 8:39 AM CDT 09/19/2017 8:45 AM CDT Andrzej Tipton MD LAB - CHEMISTRY [facility] Organization Address City/State/ZIP Co de Phone Number [facility] [address] [place] [address] documented in this encounter Visit Diagnoses Diagnosis Threatened miscarriage (HCC)- Primary Threatened , unspecified as to episode of care Vaginal bleeding in , first trimester (HCC) documented in this encounter Administered Medications Inactive Administered Medications - up to 3 most recent administrations Medication Order MAR Action Action Date Dose Rate Site 0.9% NaCl injection 1-10 mL 1-10 mL, Intracatheter, PRN, Other, peripheral line flush, Starting on Sun09/19/17 at 0800, Until Sun09/19/17 at 1116, Flush peripheral IV catheter with 1-10 mL of normal saline before and after medications and prn to clear blood from the line or to verify patency. 0.9% NaCl injection 3 mL 3 mL, Intracatheter, EVERY 8 HOURS, 1095 doses, First dose on Sun09/19/17 at 0845, Last dose on Sun09/18/18 at 2200, Flush peripheral IV catheter with 3 mL of normal saline every 8 hours. documented in this encounter Active and Recently Administered Medications Times are shown in CDT. Scheduled Medication Order 09/17/2017 09/18/2017 09/19/2017 0.9% NaCl injection 3 mL(Linked Group 1) 3 mL, Intracatheter, EVERY 8 HOURS, 1095 doses, First dose on Sun09/19/17 at 0845, Last dose on Sun09/18/18 at 2200, Flush peripheral IV catheter with 3 mL of normal saline every 8 hours. 0845 (Due) PRN Medication Order 09/17/2017 09/18/2017 09/19/2017 0.9% NaCl injection 1-10 mL(Linked Group 1) 1-10 mL, Intracatheter, PRN, Other, peripheral line flush, Starting on Sun09/19/17 at 0800, Until Sun09/19/17 at 1116, Flush peripheral IV catheter with 1-10 mL of normal saline before and after medications and prn to clear blood from the line or to verify patency. Linked Groups Order Group 1: SALINE LOCK, INSERT AND MAINTAIN (COMPLETED) Routine, CONTINUOUS, Starting on Sun09/19/17 at 0815, Until Specified, New collection And 0.9% NaCl injection 3 mLJump to med 3 mL, Intracatheter, EVERY 8 HOURS, 1095 doses, First dose on Sun09/19/17 at 0845, Last dose on Sun09/18/18 at 2200, Flush peripheral IV catheter with 3 mL of normal saline every 8 hours. And 0.9% NaCl injection 1-10 mLJump to med 1-10 mL, Intracatheter, PRN, Other, peripheral line flush, Starting on Sun09/19/17 at 0800, Until Sun09/19/17 at 1116, Flush peripheral IV catheter with 1-10 mL of normal saline before and after medications and prn to clear blood from the line or to verify patency. documented in this encounter Care Teams Rn Document Improvement Relationship Specialty Start Date End Date Huseyin Dangelo MD PCP - General Family Medicine 08/22/17 06/18/19 documented as of this encounter
--- OUTSIDE RECORDS SUMMARY | 2024-02-24 19:40 | XMS_ITS | Encounter Summary ---
Author Organization [facility] Address [address] [place] [address] Care Team Providers Care Medical Research Tech Name Role Phone Huseyin Dangelo MD Primary Care Provider [phone] Reason for Visit * Reason Comments Abnormal Results Follow Up pt was seen h ere last night for swelling and possible lupus flare up, was called today and asked to come back for possible blood clot Encounter Details Date Type Department Care Team (Late st Contact Info) Description 10/02/2018 8:40 AM CDT - 10/02/2018 10:35 AM CDT Emergency ER at [facility] [address] [place] [place], [place] [id number] Rosie Faye DO [address] [place] [place] [phone] Myalgia (Primary Dx); Pain in both lower legs Discharge Disposition: Home or Self Care Social [...] Sign Reading Time Taken Comments Blood Pressure 117/85 10/02/2018 10:00 AM CDT Pulse 82 10/02/2018 10:00 AM CDT Temperature 36.5 ??C (97.7 ??F) 10/02/2018 8:39 AM CD T Respiratory Rate 21 10/02/2018 10:00 AM CDT Oxygen Saturation 100% 10/02/2018 10:00 AM CDT Inhaled Oxygen Concentration - - Weight 64.2 kg (141 lb 9.6 oz) 10/02/2018 8:39 A M CDT Height 157.5 cm (5' 2 ) 10/02/2018 8:39 AM CDT Body Mass Index 25.9 10/02/2018 8:39 AM CDT documented in this encounter Discharge Instructions * Discharge Instructions* Rosie Faye DO - 10/02/2018 10:21 AM CDT Leg Cramps WHAT YOU NEED TO KNOW: A leg cramp is a sudden, painful squeeze in your calf (lower leg) or thigh (upper leg) muscles. Themuscle may twitch under the skin or feel hard. Your leg may feel sore long after the muscles relax. DISCHARGE INSTRUCTIONS: To stretch your leg: Warm up your muscles before you stretch. Take a short walk or run slowly in place. If you get leg cramps while you sleep, you may also want to stretch before bedtime. The following exercises stretch the calves and thighs to help stop or prevent leg cramps: ?? To stretch your calf and heel: ? Stand up and place the palms of your hands against a wall. ? Lean into the wall, with one leg behind the other. Bend the front leg and keep the back leg straight. ? Press the heel of your back leg into the floor. ? Hold for 15 to 30 seconds, then switch sides. ?? To stretch the back of your knee and thigh: ? Sit on the floor with your legs straight in front of you. Do not point your toes. ? Place the palms of your hands at your sides on the floor. Slide your hands past your hips toward your ankles. ? Move toward your ankles until you feel a stretch in the back of your legs. Do not try to touch your head to your knees or round your back. ? Hold for 30 seconds. Drink plenty of liquids during exercise: Water and other liquids help prevent cramps by replacing fluids lost in sweat. Drink more liquids when you are active in hot weather. To stop a leg cramp if it happens again: ?? Stretch and massage your muscle to stop the cramp. ?? Apply heat or ice packs to the cramp. A heating pad or hot pack may help relieve tight muscles. An ice pack or crushed ice in a bag, wrapped in a towel can soothe tender or sore muscles. Take your medicine as directed: Call your healthcare provider if you think your medicine is not helping or if you have side effects. Tell him if you are taking any vitamins, herbs, or other medicines. Keep a list of the medicines you take. Include the amounts, and when and why you take them. Bring the list or the pill bottles to follow-up visits. Follow up with your healthcare provider as directed: Write down any questions you have so you remember to ask them in your follow-up visits. Contact your healthcare provider if: ?? Your leg cramps get worse or happen more often. ?? Your leg feels numb. ?? Your leg cramps do not go away with stretching or massage. ?? You feel dizzy, lightheaded, or confused when you exercise in hot weather. You may have a headache or blurred vision. ?? Copyright [employer] 2019 Information is for End User's use only and may not be sold, redistributed or otherwise used for commercial purposes. All illustrations and images included in CareNotes?? are the copyrighted property of [employer]. or [employer] The above information is an city planning aide only. It is not intended as [...] 3 times daily as needed for Anxiety leflunomide (ARAVA) 10 MG tablet Take 10 [...] as of this encounter Progress Notes * Karen Will, RN - 10/02/2018 10:35 AM CDT Pt called back twice with questions about test results. On her second call the mechanical design drafter referred her to HIM for information and she was transferred back to the ED. Attempted to call pt back and it went to voice mail. Message left on voicemail. Advised pt to look for results on the patient portal or to call HIM. [phone]. documented in this encounter ED Notes * Rosie Faye DO - 10/02/2018 9:21 AM CDT . Umer Rausch 28 year old female [id number] [facility] EMERGENCY DEPARTMENT Chief Complaint Patient presents with ??? Abnormal Results Follow Up pt was seen here last night for swelling and possible lupus flare up, was called today and asked tocome back for possible blood clot Umer Rausch is a 28 year old female who presents to the ED with a chief complaint of: Pain behind bilateral knees. Seen last night in the emergency department, had slightly positive D-dimer, head CT angiogram the chest which demonstrated no venous thromboembolism. Patient has been seen in theED multiple times, as well as other note works for similar complaints of diffuse myalgias, shortness of breath, body aches, has questionable diagnosis of lupus. Recently started on Arava by her PMD, has upcoming rheumatology 1st appointment. Treating physician last night mention the possibility of needing ultrasound for her legs. Ultrasound was not available weighted night, therefore patient now returns today requesting ultrasound of her legs Past Medical History: Diagnosis Date ??? Fibromyalgia [...] ??? Not on file Social History Narrative ROS: A complete 14-point review of systems was reviewed with the patient. Pertinent positives and negatives are in the history of present illness. All other systems are unremarkable. Physical Exam: Nursing note and vitals reviewed. BP 117/85 Pulse 82 Temp 97.7 ??F (36.5 ??C) Resp 21 Ht 1.575 m (5' 2 ) Wt 64.2 kg (141 lb 9.6 oz) SpO2 100% BMI 25.9 kg/m2 Patient Vitals for the past 24 hrs: Temp Pulse Resp BP SpO2 10/02/18 1000 - 82 21 117/85 100 % 10/02/18 0930 - 80 18 121/82 100 % 10/02/18 0900 - 90 17 127/89 99 % 10/02/18 0839 97.7 ??F (36.5 ??C) 89 16 128/91 100 % Constitutional: Oriented to person, place, and time. Appears well-developed and well-nourished. No significant distress HENT: Head: Normocephalic and atraumatic. Right Ear: External ear normal. Left Ear: External ear normal. Nose: Nose normal. No sinus tenderness, nasal deformity or nasal septal hematoma. Mouth/Throat: Oropharynx is clear and moist. Eyes: Pupils are equal and round. Conjunctivae and EOM are normal. No discharge. No scleral icterus. Neck: Normal range of motion. Neck supple. No JVD present. No tracheal deviation present. No thyromegaly present. Cardiovascular: Normal rate, regular rhythm, normal heart sounds and intact distal pulses. Exam reveals no gallop and no friction rub. No murmur heard. Pulmonary/Chest: Effort normal and breath sounds normal. No stridor. No respiratory distress. No wheezes. No rales. No tenderness. Abdominal: Soft. Bowel sounds are normal. No distension and no mass. There is no tenderness. There is no rebound and no guarding. Musculoskeletal: No edema or tenderness. Mild tenderness bilaterally to the posterior distal hamstring. There is no swelling or palpable cord. No prominent superficial varicosities. No lower extremity edema. No asymmetric swelling. Neurological: Alert and oriented to person, place, and time. Normal muscle tone. Coordination normal. GCS eye subscore is 4. GCS verbal subscore is 5. GCS motor subscore is 6. Skin: Skin is warm. No rash noted. No diaphoresis. No erythema. No pallor. Psychiatric: Anxious affect, pressured speech.. Behavior is normal. Judgment and thought content normal. Medications: Current Outpatient Prescriptions Medication Sig Dispense Refill ??? ALPRAZolam (XANAX) 0.25 MG tablet Take 0.25 mg by mouth 3 times daily as needed for Anxiety ??? leflunomide (ARAVA) 10 MG tablet Take 20 mg by mouth once daily ??? metroNIDAZOLE (FLAGYL) 500 MG tablet Take 1 tablet by mouth 2 times daily for 7 days 20 tablet 0 ??? omeprazole (PRILOSEC) 20 MG capsule Take 20 mg by mouth daily before breakfast ??? predniSONE (DELTASONE) 5 MG tablet Take 5 mg by mouth Procedures: EKG interpretations: EKG: Oxygen Saturation Interpretation The oxygen saturation level is: 100 %. The patient was on Room Air for the saturation measurement. Measurement frequency: Continuous . Oxygen saturation interpretation is Normal. Intervention(s) used: None. Laboratory Results: No results found for this visit on 10/02/18. Radiology Results VAS BILATERAL [place] [address] Lower Extremity Venous Ultrasound Report Pat.Name: UMER RAUSCH Pat.ID: [id number] .Date: 10/02/2018 Refer.MD: rosie Faye Exam Time: 9:28:00 AM Study Type:LE Venous Age: 3 1990,28Y Sex: FEMALE Sonogrphr: Tricia Medina RDMS, RVT Pat. Stat.:Inpatient Room: ER 30 Reason for Study: Swelling -Leg, bilateral, + D-Dimer Procedures: Lower Extremity Venous - Bilateral Race: 2 Visit ID: [id number] ++++++++++++++++++++++++++++++++++++ SUMMARY: ++++++++++++++++++++++++++++++++++++ No evidence of deep [...] Signed 10/02/2018 09:48 AM Huseyin Gibbs MD ED COURSE: ED Course MEDICAL DECISION MAKING: Patient requested management of BV symptoms, requests Flagyl. Refuses pelvic or swabs. Orders Placed This Encounter ??? VAS BILATERAL VENOUS DUPLEX LE ??? metroNIDAZOLE (FLAGYL) 500 MG tablet CLINICAL IMPRESSION: Final diagnoses: Pain in both lower legs Myalgia (Primary) ED PRESCRIPTIONS Medications Prescribed this Visit Sig metroNIDAZOLE (FLAGYL) 500 MG tablet Take 1 tablet by mouth 2 times daily for 7 days DISPOSITION: DISCHARGE I have given the patient instructions regarding their diagnosis, expectations, follow up, and return precautions. I explained to the patient that emergent conditions may arise that are not yet detectable on exam or testing, and to return to the ER for new, worsening, or any persistent conditions. I've explained the importance of following up with the patient's doctor (or the referral physician) as instructed. The patient verbalized understanding of the discharge instructions and has no further questions at discharge. I also personally reviewed the patient's discharge instructions including discussion of their diagnosis, follow-up information, Medications, etc. All questions answered regarding discharge paperwork. Follow-up Information Follow-up With Details Why Contact Info Huseyin Dangelo MD Call in 3 days [phone] [id number] User Date/Time Rosie Faye DO SunOct 02, 2018 10:21 AM Provider Signature and Attestation I, Dr. Rosie Faye, personally performed the services described in this documentation. This document was created with the assistance of dictation software. Therefore erroneous or inaccurate word substitutions may occur requiring subsequent editing. DO Nomi. documented in this encounter Plan of Treatment Not on file documented as of this encounter Procedures Procedure Name Priority Date/Time Associated Diagnosis Comments VAS BILATERAL VENOUS DUPLEX LE STAT 10/02/2018 9:46 AM CDT Pain in both lower legs documented in this encounter Results * VAS BILATERAL VENOUS DUPLEX LE (10/02/2018 9:46 AM CDT) Anatomical Region Laterality Modality Lower Extremity Other 10/02/2018 9:28 AM CDT Narrative Procedure Note 10/02/2018 [place] [address] Lower Extremity Venous Ultrasound Report Pat.Name: UMER RAUSCH Pat.ID: [id number] .Date: 10/02/2018 Refer.MD: rosie Faye Exam Time: 9:28:00 AM Study Type:LE Venous Age: 3 1990,28Y Sex: FEMALE Sonogrphr: Tricia Medina RDMS, RVT Pat. Stat.:Inpatient Room: ER 30 Reason for Study: Swelling -Leg, bilateral, + D-Dimer Procedures: Lower Extremity Venous - Bilateral Race: 2 Visit ID: [id number] ++++++++++++++++++++++++++++++++++++ SUMMARY: ++++++++++++++++++++++++++++++++++++ No evidence of deep [...] 10/02/2018 09:48 AM Huseyin Gibbs MD Rosie [facility] documented in this encounter Visit Diagnoses Diagnosis Myalgia- Primary Mylagia and myositis, unspecified Pain in both lower legs documented in this encounter Care Teams Medical Research Tech Relationship Specialty Start Date End Date Huseyin Dangelo MD PCP - General Family Medicine 08/22/17 06/18/19 documented as of this encounter
--- OUTSIDE RECORDS SUMMARY | 2024-02-24 19:40 | XMS_ITS | Encounter Summary ---
Author Organization [facility] Address [address] [address] Care Team Providers Care Commercial Photographer Name Role Phone Huseyin Dangelo MD Primary Care Provider [phone] Reason for Visit * Reason Onset Date Comments Results 10/15/2018 Encounter Details Date Type Department Care Team (Late st Contact Info) Description 10/15/2018 Telephone [facility] - Rheumatology [address] [place] [address] Ashlee Magallon MD [address] [place] [phone] Results Social History Tobacco Use Types Packs/Day [...] * Telephone Encounter - Angelique Abraham - 10/15/2018 4:31 PM CDT Orders placed for Imuran and labs and are pending approval. * Telephone Encounter - Ashlee Magallon MD - 10/15/2018 1:23 PM CDT Pt called for results. They confirm lupus. Increased protein on urine prot/cr ratio. Needs to see nephrology chace for evaluation , possible biopsy. Start Imuran as TPMT is normal - 50mg BID. Possible s/e liver injury, cytopenias, immunosuppression. Cont prednisone 15mg a day for now. Ca/D Cont Leflunomide 10mg a day. Labs in 2 weeks. STOP diclofenac (not helping, have s/e). States pain is pretty well controlled right now (even though was severe at [facility]). Standing labs: cbc, cmp, ESR, CRP, UA, c3, c4. IS NOT ADVISED as pt asked. High risk of loss/maternal complications with uncontrolled SLE. Results for UMER ELDER ( ) as of 10/15/2018 13:24 Ref. Range 10/14/2018 08:11 Creatinine Urine Latest Ref Range: Not Estab. mg/dL 105.9 Protein Urine Latest Ref Range: Not Estab. mg/dL 35.9 Protein/Creatinine Ratio Latest Ref Range: 0 - 200 mg/g creat 339 (H) documented in this encounter Plan of Treatment Not on file documented as of this encounter Visit Diagnoses Not on filedocumented in this encounter Care Teams Commercial Photographer Relationship Specialty Start Date End Date Huseyin Dangelo MD PCP - General Family Medicine 08/22/17 06/18/19 documented as of this encounter
--- OUTSIDE RECORDS SUMMARY | 2024-02-24 19:40 | XMS_ITS | Encounter Summary ---
Author Organization [facility] Address [address] [place] [address] Care Team Providers Care Outdoor Power Equipment Mechanic Name Role Phone Huseyin Dangelo MD Primary Care Provider [phone] Encounter Details Date Type Department Care Team (Latest Contact Info) Description 10/08/2018 11:21 AM CDT - 10/08/2018 11:59 PM CDT Hospital Encounter [facility] - Radiology [address] [place] [address] Ashlee Magallon MD [address] [place] [address] Discharge Disposition: Home or Self Care Social [...] Name Priority Date/Time Associated Diagnosis Comments XR KNEE BILAT 3VW Routine 10/08/2018 11: 50 AM CDT Pain in both knees, unspecified chronicity documented in this encounter Results * XR [...] documented in this encounter Visit Diagnoses Diagnosis Pain in both knees, unspecified chronicity documented in this encounter Care Teams Outdoor Power Equipment Mechanic Relationship Specialty Start Date End Date Huseyin Dangelo MD PCP - General Family Medicine 08/22/17 06/18/19 documented as of this encounter
--- OUTSIDE RECORDS SUMMARY | 2024-02-24 19:40 | XMS_ITS | Encounter Summary ---
Author Organization [facility] Address [address] [place] [address] Care Team Providers Care Driver License Reviewing Officer Name Role Phone Huseyin Dangelo MD Primary Care Provider [phone] Reason for Visit * Reason Comments GENERALIZED BODY ACHES Pt reports she do esn't have insurance and only came to get a work note. Pt c/o of generalized body aches and lethargy. Pt has hx of lupus and fibromyalgia. Pt reports having flu 2 months ago. Pt reports not having any of her medications. Pt A&Ox4. Encounter Details Date Type Department Care Team (Late st Contact Info) Description 06/10/2018 1:13 PM CDT - 06/10/2018 1:48 PM CDT Emergency ER at [address] [address] Myalgia, unspecified site Discharge Disposition: Left Against Medical Advice/Discontinued Care [...] Sign Reading Time Taken Comments Blood Pressure 93/63 06/10/2018 12:50 PM CDT Pulse 85 06/10/2018 12:50 PM CDT Temperature 36.6 ??C (97.9 ??F) 06/10/2018 12:50 PM C DT Respiratory Rate 20 06/10/2018 12:50 PM CDT Oxygen Saturation 100% 06/10/2018 12:50 PM CDT Inhaled Oxygen Concentration - - Weight 63.5 kg (140 lb) 06/10/2018 12:50 PM CDT Height 157.5 cm (5' 2 ) 06/10/2018 12:50 PM CDT Body Mass Index 25.61 06/10/2018 12:50 PM CDT documented in this encounter Medications at Time of Discharge Medication Sig Dispensed Refills Start Date End Date nitrofurantoin monohyd macro crystals (MACROBID) 100 MG capsule Take 1 capsule by mouth 2 times daily 10 capsule 08/22/2017 08/22/2018 documented as of this encounter ED Notes * Rose Mary Jernigan RN - 06/10/2018 1:43 PM CDT Unable to locate patient. documented in this encounter Plan of Treatment Not on file documented as of this encounter Visit Diagnoses Diagnosis Myalgia, unspecified site documented in this encounter Care Teams Driver License Reviewing Officer Relationship Specialty Start Date End Date Huseyin Dangelo MD PCP - General Family Medicine 08/22/17 06/18/19 documented as of this encounter
--- OUTSIDE RECORDS SUMMARY | 2024-02-24 19:40 | XMS_ITS | Encounter Summary ---
Author Organization [facility] Address [address] [place] [address] Care Team Providers Care Structures Technician Name Role Phone Huseyin Dangelo MD Primary Care Provider [phone] Reason for Visit * Reason Onset Date Comments Results 10/10/2018 Encounter Details Date Type Department Care Team (Late st Contact Info) Description 10/10/2018 Telephone [facility] - Rheumatology [address] [place], [place] [id number] Ashlee Magallon MD [address] [place] [phone] Results Social History Tobacco Use Types Packs/Day [...] Encounter - Ashlee Magallon MD - 10/15/2018 10:11 AM CDT My chart message sent. * Telephone Encounter - Angelique Abraham - 10/10/2018 3:25 PM CDT A CustExt message was sent to patient regarding the information of her hepatitis A being positive and informed her Dr. Magallon is currently out of the office and I would discuss with her in regards to her Lupus questions. Patient is wanting to know why the lupus is showing negative. Please advise. * Telephone Encounter - Anthony Martel - 10/10/2018 3:07 PM CDT The patient left a voicemail, she requested a call, she has some additional questions on her lab results and would like to discuss. documented in this encounter Plan of Treatment Not on file documented as of this encounter Visit Diagnoses Not on filedocumented in this encounter Care Teams Structures Technician Relationship Specialty Start Date End Date Huseyin Dangelo MD PCP - General Family Medicine 08/22/17 06/18/19 documented as of this encounter
--- OUTSIDE RECORDS SUMMARY | 2024-02-24 19:40 | XMS_ITS | Encounter Summary ---
Author Organization [facility] Address [address] [place] [address] Care Team Providers Care Education Adviser Name Role Phone Huseyin Dangelo MD Primary Care Provider [phone] Reason for Visit * Reason Comments Swelling Leg Pt reports hx lupus, generalized swelling x1 week since starting new medication Encounter Details Date Type Department Care Team (Late st Contact Info) Description 10/01/2018 8:41 PM CDT - 10/02/2018 2:03 AM CDT Emergency ER [facility] [address] [place] [address] Fransico Encinas MD [facility] [place] [address] SOB (shortness of breath) (Primary Dx); Myalgia; Diffuse arthralgia Discharge Disposition: Home or Self Care Social [...] Sign Reading Time Taken Comments Blood Pressure 134/75 10/02/2018 1:00 AM CDT Pulse 92 10/02/2018 1:00 AM CDT Temperature 36.7 ??C (98.1 ??F) 10/01/2018 7:20 PM CD T Respiratory Rate 21 10/02/2018 1:00 AM CDT Oxygen Saturation 100% 10/01/2018 11:30 PM CDT Inhaled Oxygen Concentration - - Weight 65.5 kg (144 lb 6.4 oz) 10/01/2018 7:20 P M CDT Height 162.6 cm (5' 4 ) 10/01/2018 7:20 PM CDT Body Mass Index 24.79 10/01/2018 7:20 PM CDT documented in this encounter Discharge Instructions * Discharge Instructions* Fransico Encinas MD - 10/02/2018 1:41 AM CDT Images from the original note were not included. Shortness of Breath WHAT YOU NEED TO KNOW: Shortness of breath is a feeling that you cannot get enough air when you breathe in. You may have this feeling only during activity, or all the time. Your symptoms can range from mild to severe. Shortness of breath may be a sign of a serious health condition that needs immediate care. DISCHARGE INSTRUCTIONS: Return to the emergency department if: ?? Your signs and symptoms are the same or worse within 24 hours of treatment. ?? The skin over your ribs or on your neck sinks in when you breathe. ?? You feel confused or dizzy. Contact your healthcare provider if: ?? You have new or worsening symptoms. ?? You have questions or concerns about your condition or care. Medicines: ?? Medicines may be used to treat the cause of your symptoms. You may need medicine to treat a bacterial infection or reduce anxiety. Other medicines may be used to open your airway, reduce swelling,or remove extra fluid. If you have a heart condition, you may need medicine to help your heart beatmore strongly or regularly. ?? Take your medicine as directed. Contact your healthcare provider if you think your medicine is not helping or if you have side effects. Tell him or her if you are allergic to any medicine. Keep a list of the medicines, vitamins, and herbs you take. Include the amounts, and when and why you take them. Bring the list or the pill bottles to follow-up visits. Carry your medicine list with you in case of an emergency. Manage shortness of breath: ?? Create an action plan. You and your healthcare provider can work together to create a plan for how to handle shortness of breath. The plan can include daily activities, treatment changes, and whatto do if you have severe breathing problems. ?? Lean forward on your elbows when you sit. This helps your lungs expand and may make it easier tobreathe. ?? Use pursed-lip breathing any time you feel short of breath. Breathe in through your nose and then slowly breathe out through your mouth with your lips slightly puckered. It should take you twice as long to breathe out as it did to breathe in. ?? Do not smoke. Nicotine and other chemicals in cigarettes and cigars can cause lung damage and make shortness of breath worse. Ask your healthcare provider for information if you currently smoke and need help to quit. E-cigarettes or smokeless tobacco still contain nicotine. Talk to your healthcare provider before you use these products. ?? Reach or maintain a healthy weight. Your healthcare provider can help you create a safe weight loss plan if you are overweight. ?? Exercise as directed. Exercise can help your lungs work more easily. Exercise can also help you lose weight if needed. Try to get at least 30 minutes of exercise most days of the week. Follow up with your healthcare provider or specialist as directed: Write down your questions so youremember to ask them during your visits. ?? Copyright [employer] 2019 Information is for End User's use only and may not be sold, redistributed or otherwise used for commercial purposes. All illustrations and images included in CareNotes?? are the copyrighted property of [employer], [employer]. or [employer] The above information is an educational resource center teacher only. It is not intended as medical advice for individual conditions or treatments. Talk to your doctor, nurse or pharmacist before following any medical regimen to see if it is safe and effective for you. Arthralgia WHAT YOU NEED TO KNOW: Arthralgia is pain in one or more joints, with no inflammation. It may be short- term and get betterwithin 6 to 8 weeks. Arthralgia can be an early sign of arthritis. Arthralgia may be caused by a medical condition, such as a hormone disorder or a tumor. It may also be caused by an infection or injury. DISCHARGE INSTRUCTIONS: Medicines: The following medicines may be ordered for you: ?? Acetaminophen decreases pain. Ask how much to take and how often to take it. Follow directions. Acetaminophen can cause liver damage if not taken correctly. ?? NSAIDs decrease pain and prevent swelling. Ask your healthcare provider which medicine is right for you. Ask how much to take and when to take it. Take as directed. NSAIDs can cause stomach bleeding and kidney problems if not taken correctly. ?? Pain relief cream decreases pain. Use this cream as directed. ?? Take your medicine as directed. Contact [...] with you in case of an emergency. Follow up with your healthcare provider or specialist as directed: Write down your questions so youremember to ask them during your visits. Self-care: ?? Apply heat to help decrease pain. Use a heating pad or heat wrap. Apply heat for 20 to 30 minutes every 2 hours for as many days as directed. ?? Rest as much as possible. Avoid activities that cause joint pain. ?? Apply ice to help decrease swelling and pain. Ice may also help prevent tissue damage. Use an ice pack, or put crushed ice in a plastic bag. Cover it with a towel and place it on your painful joint for 15 to 20 minutes every hour or as directed. ?? Support the joint with a brace or elastic wrap as directed. ?? Elevate your joint above the level of your heart as often as you can to help decrease swelling and pain. Prop your painful joint on pillows or blankets to keep it elevated comfortably. ?? Lose weight if you are overweight. Extra weight can put pressure on your joints and cause more pain. Ask your healthcare provider how much you should weigh. Ask him to help you create a weight loss plan. ?? Exercise regularly to help improve joint movement and to decrease pain. Ask about the best exercise plan for you. Low-impact exercises can help take the pressure off your joints. Examples are walking, swimming, and water aerobics. Physical therapy: A physical therapist teaches you exercises to help improve movement and strength,and to decrease pain. Ask your healthcare provider if physical therapy is right for you. Contact your healthcare provider or specialist if: ?? You have a fever. ?? You continue to have joint pain that cannot be relieved with heat, ice, or medicine. ?? You have pain and inflammation around your joint. ?? You have questions or concerns about your condition or care. Return to the emergency department if: ?? You have sudden, severe pain when you move your joint. ?? You have a fever and shaking chills. ?? You cannot move your joint. ?? You lose feeling on the side of your body where you have the painful joint. ?? Copyright [employer] 2018 Information is for End User's use only and may not be sold, redistributed or otherwise used for commercial purposes. All illustrations and images included in CareNotes?? are the copyrighted property of [employer], [employer]. or [employer] The above information is an educational resource center teacher only. It is not intended as medical [...] 20 mg by mouth daily before breakfast 0 predniSONE (DELTASONE) 5 MG tablet Take 15 mg by mouth once daily 02/25/2019 documented as of this encounter Progress Notes * Karen Will RN - 10/02/2018 2:03 AM CDT Pt called and was upset because she was not ordered medication for her BV and there was no order for US to u/o DVT placed for outpatient services. documented in this encounter ED Notes * Fransico Encinas MD - 10/01/2018 10:46 PM CDT CHIEF COMPLAINT: Generalized joint pain and swelling . HISTORY OF PRESENT ILLNESS: Carito Rausch is a 28 year old female who presents to the emergency department with past medicalhistory of fibromyalgia and Lupus with a chief complaint of generalized joint pain and swelling that has been worsening over the past week. Most of her pain is located at her posterior knees, lower back and posterior neck. She states I think I am having [...] breath with her symptoms. She states she vi sited [facility] ER last week for similar symptoms and was told her symptoms could be stemming from scleroderma. Has an appointment with a new oiler helper next week. Also notes recent vaginal pain and has noticed a fishy vaginal odor without discharge. Hx of multiple episodes of bacterial vaginosis, which she usually takes Flagyl for. She states she believe this is what is causing her vaginal symptoms. PAST MEDICAL HISTORY: I have read and agree with the pertinent medical/surgical history, psychiatric history, social history, and family history as documented by nursing. . REVIEW OF SYSTEMS: - Constitutional: Negative for weakness - Eyes: Negative for vision changes. - ENT: Negative for epistaxis. - Cardiovascular: Negative for chest pain. - Respiratory: Positive for shortness of breath. - GI: Negative for nausea, vomiting. - Musculoskeletal: Positive for generalized joint pain and swelling. See history of present illness - Skin: See history of present illness - Neurologic: See history of present illness - Psychiatric: Negative for alcohol abuse, anxiety, drug abuse. . VITAL SIGNS: Vitals: 10/01/18 1920 10/01/18 2049 10/01/18 2300 10/01/18 2330 BP: 150/99 131/88 114/68 Pulse: 107 95 96 Resp: 20 18 16 Temp: 98.1 ??F (36.7 ??C) SpO2: 100% 100% 100% Weight: 65.5 kg (144 lb 6.4 oz) Height: 1.626 m (5' 4 ) . PHYSICAL EXAM: - Constitutional: Patient is a well appearing 28 year old female and appears to be nontoxic. No acute distress. - Head: Atraumatic - Eyes: Conjunctiva and sclera are clear. - ENT: No nasal deformity. Pharynx, uvula, and tonsils appear normal . Mucous membranes moist. - Neck: Normal range of motion. No midline tenderness, step-offs or deformities. - Respiratory: Breath sounds clear bilaterally with equal chest rise. No wheezing, rales, rhonchi, diminished breath sounds appreciated. - Cardiovascular: Slightly tachycardic rate. Regular rhythm. No murmurs, rubs, or gallops appreciated. - Abdominal: Non-tender abdomen without guarding, rigidity, or rebound. - Pelvic Exam: Deferred as per patient's wishes - Back: Normal inspection and range of motion. No midline or CVA tenderness appreciated. - Extremities: There is mild diffuse joint swelling noted without significant erythema. Patient hasfull, passive and active ROM of all the joints. Some bilateral, left greater than right, posterior calf pain. No unilateral leg swelling. No palpable cords. - Neuro: Patient is alert and oriented to person, place and time. See extremity exam - Psychiatric: Mood is euthymic and affect is appropriate. Judgement, insight, memory and concentration appear normal. . ELECTROCARDIOGRAM RESULTS I have personally reviewed the EKG. Rate: 100 beats per minute Rhythm: Normal Sinus Rhythm No evidence of any acute ischemia. QTc is 443 ms and QRS durations is 82 ms. Previous EKG: No previous EKG in our system PULSE OXIMETRY INTERPRETATION Oxygen saturation is 100 % on room air Interpretation: No significant hypoxia at this time. . MEDICAL DECISION MAKING: Assessment: This is a 28-year-old female with history of lupus who presents with complaints of bilateral lower extremity pain left greater than right, shortness of breath, generalized myalgias, arthralgias, joint swelling. Differential diagnosis: patient wonders if presentation could be a side effect of her Arava. Reviewof adverse effects is medication revealed that would be very atypical reaction. Regarding her lowerextremity pain, and in the presence of shortness of breath, there is some concern for pulmonary embolism and DVT. Overall my pretest probability is low. More likely her presentation is secondary to her myalgias arthralgias which could be secondary to lupus which she has been evaluated for previously. Fortunately, unlikely represent systemic infection. Regarding the vaginal discharge, patient has had this previously and apparently has been diagnosed with bacterial vaginosis. She is refusing pelvic exam at this time. EMERGENCY DEPARTMENT COURSE CBC demonstrates slight leukopenia with white count 3.7 and anemia with a hemoglobin at 10.7 near baseline. CMP is unremarkable. Initial troponin negative undetectable. D-dimer elevated prompting a CT scan which is pending. Urinalysis negative for infection. ESR and CRP not significantly elevated. Patient is requesting IV dexamethasoneas this has helped her previously. We will also provide some Toradol. Will obtain CT PE study. CT PE study negative for evidence pulmonary embolism. 0134: Patient reassessed. Informed her of her initially elevated D-Dimer findings and CT results that were negative for PE. Discussed plan for discharge, including prescription for naproxen. Informedher that she only has a 5% risk factor for DVTs but she could possibly benefit from an outpatient US of her legs. At this time I do not believe empiric anticoagulation is necessary. Unfortunately, Emergent ultrasound not Available at this time In the emergency department. Discussed with the patientstrict return precautions. Patient is agreeable with discharge plan and stable for discharge at this time. IMPRESSION 1. SOB (shortness of breath) 2. Myalgia 3. Diffuse arthralgia BP 114/68 Pulse 96 Temp 98.1 ??F (36.7 ??C) Resp 16 Ht 1.626 m (5' 4 ) Wt 65.5 kg (144 lb 6.4 oz) SpO2 100% BMI 24.79 kg/m2 Disposition: Discharged Diagnosis: Encounter Diagnoses Name Primary? SOB (shortness of breath) Yes ??? Myalgia ??? Diffuse arthralgia New Medications at discharge: New Prescriptions NAPROXEN (NAPROSYN) 500 MG TABLET Take 1 tablet by mouth 2 times daily Scribe Signature and Attestation By signing my name below, I, Sary Hopkins, attsupa that this documentation has been prepared under the direction and in the presence of Urbano Encinas MD Electronically Signed: Karlie Berrios. 10/02/2018. Time 2246 Provider Signature and Attestation I, Dr. Urbano Encinas, personally performed the services described in this documentation. All medical record entries made by the scribe were at my direction and in my presence. I have reviewed the chart and agree that the record reflects my personal performance and is accurate and complete. Urbano Encinas MD. 10/02/2018 * Vandana Cardoza PA-C - 10/01/2018 8:43 PM CDT 10/01/2018 8:49 PM Patient presents with a chief complaint of swelling. History of present illness: Pt reports she started laflunamide for Lupus 1 week ago and has had generalized swelling since then. Reports its hurts to move arms and legs. Went to [facility] for same as well as SOB. Celebrex was rx'd but she had an allergic reaction. Continues to feel mildly SOB. Physical Exam: awake, alert, NAD, heart RRR, lungs CTAB Complete vital signs reviewed. BP 150/99 Pulse 107 Temp 98.1 ??F (36.7 ??C) Resp 20 Ht 1.626 m (5' 4 ) Wt 65.5 kg (144 lb 6.4 oz) SpO2 100% BMI 24.79 kg/m2 Diagnostic tests ordered: Orders Placed This Encounter Procedures ??? XR CHEST PA AND LATERAL ??? CBC W AUTO DIFFERENTIAL ??? COMPREHENSIVE METABOLIC PANEL ??? EKG 12-LEAD Based on the Medical Screening Exam performed and diagnostic tests at this time: Further evaluation is indicated and will be performed. Care will be transferred to ED Physican. documented in this encounter Plan of Treatment Not on file documented as of this encounter Procedures Procedure Name Priority Date/Time Associated Diagnosis Comments CARDIAC EKG ORDER 10/02/2018 6:[address] ANGIO CHEST PULM EMBOLISM STAT 10/02/2018 12:04 AM CDT SOB (shortness of breath) URINALYSIS REFLEX MICROSCOPIC REFLEX CULTURE STAT 10/01/2018 11:08 PM CDT D-DIMER STAT 10/01/2018 11:01 PM CDT XR CHEST 2VW STAT 10/01/2018 9:04 PM CDT SOB (shortness of breath) TSH REFLEX FREE T4 STAT 10/01/2018 8: 50 PM CDT TROPONIN I STAT 10/01/2018 8:50 PM CDT C-REACTIVE PROTEIN Add on 10/01/2018 8: 50 PM CDT ERYTHROCYTE SEDIMENTATION RATE Add on 10/01/2018 8:50 PM CDT CBC W AUTO DIFFERENTIAL STAT 10/01/2018 8:50 PM CDT COMPREHENSIVE METABOLIC PANEL STAT 10/01/2018 8:50 PM CDT EKG 12-LEAD STAT 10/01/2018 7:41 PM CDT SOB (shortness of breath) documented in this encounter Results * CARDIAC EKG ORDER (10/02/2018 6:01 PM CDT) Narrative 10/02/2018 6:01 PM CDT Ordered by an unspecified provider. Scanned Document CARDIAC SERVICES ORD ERABLES * CT ANGIO CHEST PULM EMBOLISM (10/02/2018 [...] with her symptoms. She states she visited [facility] ER last week for similar symptoms and [...] or syntax problems by a trained medical office secretary. For questions about the report, please contact [...] or syntax problems by a trained medical office secretary. For questions about the report, please contact [...] AM Fransico Encinas MD CT ORDERABLES * URINALYSIS REFLEX MICROSCOPIC REFLEX CULTURE (10/01/2018 11:08 PM CDT) Color UA Yellow Straw, Yellow 10/01/2018 11:15 PM CDT [facility] Clarity UA Clear Clear 10/01/2018 11:15 PM CDT [facility] Glucose UA Negative Negative 10/01/2018 11:15 PM CDT [facility] Bilirubin UA Negative Negative 10/01/2018 11:15 PM CDT [facility] Ketone UA Negative Negative 10/01/2018 11:15 PM CDT [facility] Specific [place] UA 1.020 1.005 - 1.030 10/01/2018 11:15 PM CDT [facility] Blood UA Negative Negative 10/01/2018 11:15 PM CDT [facility] pH UA 5.0 5.0 - 8.0 pH 10/01/2018 11:15 PM CDT [facility] Protein UA Negative Negative 10/01/2018 11:15 PM CDT [facility] Urobilinogen UA Negative Negative mg/dL 10/01/2018 11:15 PM CDT [facility] Nitrite UA Negative Negative 10/01/2018 11:15 PM CDT [facility] Leukocyte UA Negative Negative 10/01/2018 11:15 PM CDT [facility] Urine Microscopy Urine microscopy not indicated 10/01/2018 11:15 PM CDT [facility] Reflex Status Culture not indicated 10/01/2018 11:15 PM CDT [facility] Urine URINE SPECIMEN OBTAINED BY CLEAN CATCH PROCEDURE / Unknown Collection / Unknown 10/01/2018 11:08 PM CDT 10/01/2018 11:10 PM CDT Narrative [facility] - 10/01/2018 11:15 PM CDT Fransico Encinas MD LAB - URINALY SIS ORDERABLES [facility] [address] [place] [address] * (ABNORMAL) D-DIMER (10/01/2018 11:01 PM CDT) D-Dimer 1.47(H) 0.17 - 0.5 mg/L FEU 10/01/2018 11:21 PM CDT [facility] Blood BLOOD SPECIMEN / Unknown Venipuncture / Unknown 10/01/2018 11:01 PM CDT 10/01/2018 11:06 PM CDT Narrative [facility] - 10/01/2018 11:21 PM CDT The [...] Encinas MD LAB - COAGULA TION ORDERABLES [facility] [address] [place] [address] * XR CHEST PA AND LATERAL (10/01/2018 [...] Cardoza PA-C DIAGNOSTIC IMAGING O RDERABLES * TSH REFLEX FREE T4 (10/01/2018 8:50 PM CDT) Pathologist [facility] TSH 1.2930 0.35 - 4.94 ulU/mL 10/01/2018 11:35 PM CDT [facility] Blood BLOOD SPECIMEN / Unknown Venipuncture / Unknown 10/01/2018 8:50 PM CDT 10/01/2018 8:55 PM CDT Fransico Encinas MD LAB - WEAVE DEFECT CHARTING CLERK RY ORDERABLES Performing Organization Address City/[facility]/ZIP Co de Phone Number [facility] [address] [place] [address] * TROPONIN I (10/01/2018 8:50 PM CDT) Troponin I <0.010 <0.038 ng/mL 10/01/2018 11:35 PM CDT [facility] Blood BLOOD SPECIMEN / Unknown Venipuncture / Unknown 10/01/2018 8:50 PM CDT 10/01/2018 8:55 PM CDT Fransico Encinas MD LAB - WEAVE DEFECT CHARTING CLERK RY ORDERABLES Performing Organization Address City/[facility]/ZIP Co de Phone Number [facility] [address] [place] [address] * (ABNORMAL) C-REACTIVE PROTEIN (10/01/2018 8:50 PM CDT) [facility] C-Reactive Protein 0.80(H) <=0.50 mg/dL 10/01/2018 9:27 PM CDT [facility] Blood BLOOD SPECIMEN / Unknown Venipuncture / Unknown 10/01/2018 8:50 PM CDT 10/01/2018 8:55 PM CDT Fransico Encinas MD LAB - WEAVE DEFECT CHARTING CLERK RY ORDERABLES Performing Organization Address City/[facility]/ZIP Co de Phone Number [facility] [address] [place] [phone] * ERYTHROCYTE SEDIMENTATION RATE (10/01/2018 8:50 PM CDT) [facility] Erythrocyte Sedimentation Rate Automated 11 0 - 20 MM/HR 10/01/2018 9:21 PM CDT [facility] Blood BLOOD SPECIMEN / Unknown Venipuncture / Unknown 10/01/2018 8:50 PM CDT 10/01/2018 8:55 PM CDT Fransico Encinas MD LAB - HEMATOL OGY ORDERABLES Performing Organization Address City/[facility]/ZIP Co de Phone Number [facility] [address] [place] [phone] * (ABNORMAL) COMPREHENSIVE METABOLIC PANEL (10/01/2018 8:50 PM CDT) [facility] Glucose 102 74 - 106 mg/dL 10/01/2018 9:18 PM CDT [facility] Sodium 141 136 - 145 mmol/L 10/01/2018 9:18 PM CDT [facility] Potassium 3.5 3.5 - 5.1 mmol/L 10/01/2018 9:18 PM CDT [facility] Chloride 108(H) 98 - 107 mmol/L 10/01/2018 9:18 PM CDT [facility] CO2 25 23 - 31 mmol/L 10/01/2018 9:18 PM CDT [facility] Calcium 9.1 8.4 - 10.2 mg/dL 10/01/2018 9:18 PM CDT [facility] Anion Gap 8 8 - 16 mmol/L 10/01/2018 9:18 PM CDT [facility] BUN 17 7 - 18.7 mg/dL 10/01/2018 9:18 PM CDT [facility] Creatinine 0.72 0.55 - 1.02 mg/dL 10/01/2018 9:18 PM CDT [facility] Alkaline Phosphatase 42 40 - 150 U/L 10/01/2018 9:18 PM CDT [facility] ALT 23 13 - 61 U/L 10/01/2018 9:18 PM CDT [facility] AST 16 5 - 34 U/L 10/01/2018 9:18 PM CDT [facility] Protein Total 7.0 6.4 - 8.3 gm/dL 10/01/2018 9:18 PM CDT [facility] Albumin 3.8 3.5 - 5.2 gm/dL 10/01/2018 9:18 PM CDT [facility] Bilirubin Total 0.3 0.2 - 1.0 mg/dL 10/01/2018 9:18 PM CDT [facility] eGFR by MDRD >60 >60 mL/min/1.7 3m2 10/01/2018 9:18 PM [facility] eGFR by MDRD >60 >60 mL/min/1.7 3m2 10/01/2018 9:18 PM T [facility] Blood BLOOD SPECIMEN / Unknown Venipuncture / Unknown 10/01/2018 8:50 PM CDT 10/01/2018 8:55 PM CDT Vandana Cardoza PA-C LAB - CHEMISTRY GREGORY RIVERA [facility] Organization Address City/State/ZIP Co de Phone Number [facility] [address] [place] [address] * (ABNORMAL) CBC W AUTO DIFFERENTIAL (10/01/2018 8:50 PM CDT) WBC 3.9(L) 4.4 - 10.7 x10E9/L 10/01/2018 9:02 PM CDT [facility] WBC Corrected x10E9/L 10/01/2018 9:02 PM CDT [facility] RBC 4.08 3.80 - 5.20 x10E12/L 10/01/2018 9:02 PM CDT [facility] Hemoglobin 10.7(L) 12.0 - 15.6 gm/dL 10/01/2018 9:02 PM [facility] Hematocrit 34.0(L) 35.9 - 45.5 % 10/01/2018 9:02 PM [facility] MCV 83.3 80.7 - 98.3 fl 10/01/2018 9:02 PM [facility] MCH 26.2(L) 26.7 - 34.0 pg 10/01/2018 9:02 PM [facility] MCHC 31.5 30.8 - 35.9 gm/dL 10/01/2018 9:02 PM [facility] Platelet Count 238 153 - 416 x10E9/L 10/01/2018 9:02 PM [facility] RDW-CV 16.7(H) 12.1 - 14.9 % 10/01/2018 9:02 PM [facility] MPV 10.2 9.4 - 12.9 fl 10/01/2018 9:02 PM [facility] Neutrophils % 77.9(H) 44.0 - 73.0 % 10/01/2018 9:02 PM [facility] Lymphocytes % 15.5(L) 20.0 - 43.0 % 10/01/2018 9:02 PM [facility] Monocytes % 5.2 5.0 - 13.0 % 10/01/2018 9:02 PM [facility] Eosinophils % 0.8 0.0 - 6.0 % 10/01/2018 9:02 PM [facility] Basophils % 0.3 0.0 - 2.0 % 10/01/2018 9:02 PM [facility] Immature Granulocytes 0.3 0 - 1 % 10/01/2018 9:02 PM [facility] Neutrophil Absolute 3.01 2.01 - 7.14 x10E9/L 10/01/2018 9:02 PM [facility] Lymphocytes Absolute 0.60(L) 1.07 - 3.94 x10E9/L 10/01/2018 9:02 PM [facility] Monocytes Absolute 0.20(L) 0.26 - 1.07 x10E9/L 10/01/2018 9:02 PM CDT [facility] Eosinophils Absolute 0.03 0 - 0.47 x10E9/L 10/01/2018 9:02 PM CDT [facility] Basophils Absolute 0.01 0 - 0.08 x10E9/L 10/01/2018 9:02 PM CDT [facility] Immature Granulocytes Absolute 0.01 0.00 - 0.06 x10E9/L 10/01/2018 9:02 PM CDT [facility] nRBC Auto 0 /100 WBC 10/01/2018 9:02 PM CDT [facility] Blood BLOOD SPECIMEN / Unknown Venipuncture / Unknown 10/01/2018 8:50 PM CDT 10/01/2018 8:55 PM CDT Vandana Cardoza PA-C LAB - HEMATOLOGY ORD ERABLES Performing Organization Address [facility] Co de Phone Number [facility] [address] [id number] * EKG 12-LEAD (10/01/2018 7:41 PM CDT) Ventricular Rate 100 BPM [facility] Atrial Rate 100 BPM [facility] P-R Interval 128 ms [facility] QRS Duration ms 82 ms [facility] Q-T Interval ms 344 ms [facility] QTC Calculation (Bezet) 443 ms [facility] Calculated P [place] 49 degrees [facility] Calculated R [place] 35 degrees [facility] Calculated T [place] 31 degrees [facility] Interpretation EKG Normal sinus rhythm Normal ECG No previous ECGs available Confirmed by Raji Wing ([id number]) on 10/02/2018 7:07:55 AM [facility] 10/01/2018 7:41 PM CDT 10/02/2018 7:07 AM CDT Vandana Cardoza PA-C ECG ORDERABLES Performing Organization Address [facility] Co de Phone Number [facility] documented in this encounter Visit Diagnoses Diagnosis SOB (shortness of breath)- Primary Shortness of breath Myalgia Mylagia and myositis, unspecified Diffuse arthralgia documented in this encounter Administered Medications Inactive Administered Medications - up to 3 most recent administrations Medication Order MAR Action Action Date Dose Rate Site 0.9% NaCl injection 1-10 mL 1-10 mL, Intracatheter, PRN, Other, peripheral line flush, Starting on Sun10/01/18 at 2046, Until Sun10/02/18 at 0314, Flush peripheral IV catheter with 1-10 mL of normal saline before and after medications and prn to clear blood from the line or to verify patency. 0.9% NaCl injection 3 mL 3 mL, Intracatheter, EVERY 8 HOURS, 1095 doses, First dose on Sun10/01/18 at 2200, Last dose on Sun10/01/19 at 1400, Flush peripheral IV catheter with 3 mL of normal saline every 8 hours. acetaminophen (TYLENOL) tablet 650 mg 650 mg, Oral, NOW, 1 dose, On Sun10/01/18 at 2215 $ Given 10/01/2018 10:12 PM CDT 650 mg dexamethasone (DECADRON) injection 10 mg 10 mg, Intravenous, NOW, 1 dose, On Sun10/01/18 at 2315 $ Given 10/01/2018 11:17 PM CDT 10 mg iopamidol (ISOVUE 370) 76 % contrast Intravenous, CONTRAST ONCE, Starting on Sun10/01/18 at 2348, Until Sun10/02/18 at 0314 $ Given - Contrast 10/01/2018 11:54 PM CDT 60 mL documented in this encounter Active and Recently Administered Medications Times are shown in CDT. Scheduled Medication Order 09/30/2018 10/01/2018 10/02/2018 0.9% NaCl injection 3 mL(Linked Group 1) 3 mL, Intracatheter, EVERY 8 HOURS, 1095 doses, First dose on Sun10/01/18 at 2200, Last dose on Sun10/01/19 at 1400, Flush peripheral IV catheter with 3 mL of normal saline every 8 hours. 2200 (Due) acetaminophen (TYLENOL) tablet 650 mg (COMPLETED) 650 mg, Oral, NOW, 1 dose, On Sun10/01/18 at 2215 2212 ($ Given - Provider: hSelley Reynolds, PRO) dexamethasone (DECADRON) injection 10 mg (COMPLETED) 10 mg, Intravenous, NOW, 1 dose, On Sun10/01/18 at 2315 2317 ($ Given - Provider: Sanchez Schumacher, RN) iopamidol (ISOVUE 370) 76 % contrast Intravenous, CONTRAST ONCE, Starting on Sun10/01/18 at 2348, Until Sun10/02/18 at 0314 2354 ($ Given - Contrast - Provider: Jackson Lynch, RT(R)CT) ketorolac (TORADOL) injection 15 mg 15 mg, Intravenous, ONCE, 1 dose, On Sun10/02/18 at 0000 0000 (Due) PRN Medication Order 09/30/2018 10/01/2018 10/02/2018 0.9% NaCl injection 1-10 mL(Linked Group 1) 1-10 mL, Intracatheter, PRN, Other, peripheral line flush, Starting on Sun10/01/18 at 2046, Until Sun10/02/18 at 0314, Flush peripheral IV catheter with 1-10 mL of normal saline before and after medications and prn to clear blood from the line or to verify patency. Linked Groups Order Group 1: SALINE LOCK, INSERT AND MAINTAIN (CANCELED) Routine, CONTINUOUS, Starting on Sun10/01/18 at 2100, Until Specified, New collection And 0.9% NaCl injection 3 mLJump to med 3 mL, Intracatheter, EVERY 8 HOURS, 1095 doses, First dose on Sun10/01/18 at 2200, Last dose on Sun10/01/19 at 1400, Flush peripheral IV catheter with 3 mL of normal saline every 8 hours. And 0.9% NaCl injection 1-10 mLJump to med 1-10 mL, Intracatheter, PRN, Other, peripheral line flush, Starting on Sun10/01/18 at 204, Until Sun10/02/18 at 0314, Flush peripheral IV catheter with 1-10 mL of normal saline before and after medications and prn to clear blood from the line or to verify patency. documented in this encounter Care Teams Education Adviser Relationship Specialty Start Date End Date Huseyin Dangelo MD PCP - General Family Medicine 08/22/17 06/18/19 documented as of this encounter
--- OUTSIDE RECORDS SUMMARY | 2024-02-24 19:40 | XMS_ITS | Encounter Summary ---
Author Organization [facility] Address [address] [place] [address] Care Team Providers Care Production Metal Sprayer Name Role Phone Huseyin Dangelo MD Primary Care Provider [phone] Reason for Visit * Reason Onset Date Comments Pain Joint 10/21/2018 Encounter Details Date Type Department Care Team (Late st Contact Info) Description 10/21/2018 Telephone [facility] - Rheumatology [address] [place], [place] [id number] Ashlee Magallon MD [address] [facility] [address] [place] [phone] Pain Joint Social History Tobacco Use Types [...] * Telephone Encounter - Angelique Abraham - 10/21/2018 1:[address] Magallon, patient is to increase prednisone to 20 mg x7 days, then 15 mg x7 days then continue taking 10 mg daily as baseline dose. Move her appointment to sometime this week so we can talk in person. Spoke with patient providing the information given by Dr. Magallon. She verbalized understanding and is scheduled for Sunday10/25/18 at 1:00 pm. * Telephone Encounter - Angelique Abraham - 10/21/2018 11:37 AM CDT Awaiting a response from Dr. Magallon. * Telephone Encounter - Angelique Abraham - 10/21/2018 11:15 AM CDT Patient contacted the office stating I started the Imuran prescription on Sunday10/19/18 and I was throwing up and started with diarrhea. It was really bad. I talked with Dr. Magallon on Sunday and she told me to stop the medication so I did. I am in a horrible flare and am on 10 mg prednisone daily. I can't get out of bed I hurt so bad with joint pain everywhere and I feel like I am running a fever. I woke up in the middle of the night breaking out in a sweat. I take Tylenol twice daily. ShouldI increase my prednisone? Where do we go from here? Dr. Magallon mentioned about starting Benlysta injections. I have also had chest pain daily for the past 2 months and have been to the ER from it and there is nothing wrong with my heart. Can my disease be causing the chest pain? Please advise. documented in this encounter Plan of Treatment Not on file documented as of this encounter Visit Diagnoses Not on filedocumented in this encounter Care Teams Production Metal Sprayer Relationship Specialty Start Date End Date Huseyin Dangelo MD PCP - General Family Medicine 08/22/17 06/18/19 documented as of this encounter
--- OUTSIDE RECORDS SUMMARY | 2024-02-24 19:40 | XMS_ITS | Encounter Summary ---
Author Organization [facility] Address [address] [place] [address] Care Team Providers Care Special Education Bus Driver Name Role Phone Huseyin Dangelo MD Primary Care Provider [phone] Reason for Visit * Reason Onset Date Comments HSV 10/17/2018 Encounter Details Date Type Department Care Team (Late st Contact Info) Description 10/17/2018 Telephone [facility] - Rheumatology [address] [place] [address] Ashlee Magallon MD [address] [employer] [address] [place] [phone] HSV Social History Tobacco Use Types Packs/Day Years [...] Telephone Encounter - Ashlee Magallon MD - 10/17/2018 4:33 PM CDT Pt called exchange at 430 today - wondering about whether she can take the valtrex for her genital herpes advised this should be ok(she is worried about renal function) - advised we will be watching the labs closely - she does not want to start the Imuran but states she will this weekend. -she states she is on 10mg of prednisone - asks about Benlysta which would be the next step if Imuran doesn't work. documented in this encounter Plan of Treatment Not on file documented as of this encounter Visit Diagnoses Not on filedocumented in this encounter Care Teams Special Education Bus Driver Relationship Specialty Start Date End Date Huseyin Dangelo MD PCP - General Family Medicine 08/22/17 06/18/19 documented as of this encounter
--- OUTSIDE RECORDS SUMMARY | 2024-02-24 19:40 | XMS_ITS | Encounter Summary ---
Author Organization [facility] Address [address] [place] [address] Care Team Providers Care Cover Making Machine Operator Name Role Phone Huseyin Dangelo MD Primary Care Provider [phone] Encounter Details Date Type Department Care Team (Latest Contact Info) Description 10/08/2018 11:18 AM CDT - 10/08/2018 11:20 AM CDT Hospital Encounter [facility] - Radiology [address] [facility] [address] Ashlee Magallon MD [address] [facility] [address] [place] [address] Discharge Disposition: Home or Self Care Social [...] Diagnosis Comments XR HIPS BILATERAL 2VW Routine 10/08/2018 11:50 AM CDT Polyarthralgia documented in this encounter Results * XR HIPS BILATERAL 2VW (10/08/2018 11:50 [...] sites documented in this encounter Care Teams Cover Making Machine Operator Relationship Specialty Start Date End Date Huseyin Dangelo MD PCP - General Family Medicine 08/22/17 06/18/19 documented as of this encounter
--- OUTSIDE RECORDS SUMMARY | 2024-02-24 19:40 | XMS_ITS | Encounter Summary ---
Author Organization [facility] Address [address] [place] [address] Care Team Providers Care It Operations Analyst Name Role Phone Huseyin Dangelo MD Primary Care Provider Encounter Details Date Type Department Care Team (Late st Contact Info) Description 10/15/2018 Orders Only [facility] - Rheumatology [address] [facility] [address] [place], [place] [phone] Ashlee Magallon MD [address] [facility] [address] [place] [phone] Dysuria ; Other forms of systemic lupus erythematosus, unspecified organ involvement status (HCC); Encounter for long-term (current) use of medications; Proteinuria, unspecified type Social History Tobacco Use Types Packs/Day Years [...] * Addendum Note - Angelique Abraham - 10/24/2018 11:23 AM CDTAddended by: ANGELIQUE ABRAHAM on: 10/24/2018 11:23 AM Modules accepted: Orders * Addendum Note - Angelique Abraham - 10/16/2018 4:12 PM CDTAddended by: ANGELIQUE ABRAHAM on: 10/16/2018 04:12 PM Modules accepted: Orders documented in this encounter Plan of Treatment Not on file documented as of this encounter Visit Diagnoses Diagnosis Dysuria- Primary Other forms of systemic lupus erythematosus, unspecified organ involvement status (HCC) Encounter for long-term (current) use of medications Encounter for long-term (current) use of other medications Proteinuria, unspecified type documented in this encounter Care Teams It Operations Analyst Relationship Specialty Start Date End Date Huseyin Dangelo MD PCP - General Family Medicine 08/22/17 06/18/19 documented as of this encounter
--- OUTSIDE RECORDS SUMMARY | 2024-02-24 19:40 | XMS_ITS | Encounter Summary ---
Author Organization [facility] Address [address] [place] [address] Care Team Providers Care Assistant Director Of Nursing Name Role Phone Huseyin Dangelo MD Primary Care Provider [phone] Reason for Visit * Reason Comments Vaginal Bleeding seen in ED earlier, 9 weeks , pain is now severe, gone through 2 pads since noon Encounter Details Date Type Department Care Team (Late st Contact Info) Description 09/19/2017 7:58 PM CDT - 09/19/2017 9:20 PM CDT Emergency ER at [address] [address] Hemorrhage in early (HCC) Discharge Disposition: Left Against Medical Advice/Discontinued [...] Sign Reading Time Taken Comments Blood Pressure 106/69 09/19/2017 8:00 PM CDT Pulse 77 09/19/2017 8:00 PM CDT Temperature 36.7 ??C (98.1 ??F) 09/19/2017 8:00 PM CD T Respiratory Rate 18 09/19/2017 8:00 PM CDT Oxygen Saturation 100% 09/19/2017 8:00 PM CDT Inhaled Oxygen Concentration - - Weight - - Height 157.5 cm (5' 2 ) 09/19/2017 8:00 PM CDT Body Mass Index - - documented in this encounter Medications at Time of Discharge Medication Sig Dispensed Refills Start Date End Date nitrofurantoin monohyd macro crystals (MACROBID) 100 MG capsule Take 1 capsule by mouth 2 times daily 10 capsule 08/22/2017 08/22/2018 documented as of this encounter Plan of Treatment Not on file documented as of this encounter Visit Diagnoses Diagnosis Hemorrhage in early (HCC) documented in this encounter Care Teams Assistant Director Of Nursing Relationship Specialty Start Date End Date Huseyin Dangelo MD PCP - General Family Medicine 08/22/17 06/18/19 documented as of this encounter
--- OUTSIDE RECORDS SUMMARY | 2024-02-24 19:40 | XMS_ITS | Encounter Summary ---
Author Organization [facility] Address [address] [address] [place] [address] Care Team Providers Care Dial Screw Assembler Name Role Phone Huseyin Dangelo MD Primary Care Provider [phone] Reason for Visit * Reason Onset Date Comments Results 10/09/2018 Encounter Details Date Type Department Care Team (Late st Contact Info) Description 10/09/2018 Telephone [facility] - Rheumatology [address] [place], [place] [phone] Ashlee Magallon MD [address] [employer] [address] [place] [phone] Results Social History Tobacco Use Types Packs/Day [...] Telephone Encounter - Angelique Abraham - 10/10/2018 2:57 PM CDT Patient has been notified via Provade. * Telephone Encounter - Ashlee Magallon MD - 10/09/2018 4:01 PM CDT Pt was told at the office visit that it will take up to 2 weeks to get everything back. I will reply to her Provade message. * Telephone Encounter - Keena Denny MA - 10/09/2018 11:59 AM CDT Please advise * Telephone Encounter - Anthony Martel - 10/09/2018 11:40 AM CDT The patient called to FU on lab and x-ray results from 10-08-18, she was advised that we would call once Dr Magallon had reviewed. documented in this encounter Plan of Treatment Not on file documented as of this encounter Visit Diagnoses Not on filedocumented in this encounter Care Teams Dial Screw Assembler Relationship Specialty Start Date End Date Huseyin Dangelo MD PCP - General Family Medicine 08/22/17 06/18/19 documented as of this encounter
--- OUTSIDE RECORDS SUMMARY | 2024-02-24 19:40 | XMS_ITS | Encounter Summary ---
Author Organization [facility] Address [address] [place] [address] Care Team Providers Care Story Reader Name Role Phone Huseyin Dangelo MD Primary Care Provider [phone] Reason for Visit * Reason Comments Vaginal Bleeding LMP 07/12/2017; pt paz s had vaginal bleeding and cramping for past few days; her OB wants her to have a transvaginal US and blood work Encounter Details Date Type Department Care Team (Late st Contact Info) Description 08/22/2017 5:46 PM CDT - 08/22/2017 8:50 PM CDT Emergency ER at [place] [id number] Enrique Dixon MD [address] [address] Vaginal bleeding in , first trimester (HCC) (Primary Dx); Pelvic pain in female Discharge Disposition: Home or Self Care Social [...] Sign Reading Time Taken Comments Blood Pressure 121/71 08/22/2017 8:49 PM CDT Pulse 84 08/22/2017 8:49 PM CDT Temperature 36.8 ??C (98.2 ??F) 08/22/2017 8:49 PM CD T Respiratory Rate 16 08/22/2017 8:49 PM CDT Oxygen Saturation 97% 08/22/2017 8:49 PM CDT Inhaled Oxygen Concentration - - Weight 70.6 kg (155 lb 9.6 oz) 08/22/2017 5:52 P M CDT Height 157.5 cm (5' 2 ) 08/22/2017 5:43 PM CDT Body Mass Index 28.46 08/22/2017 5:43 PM CDT documented in this encounter Discharge Instructions * Discharge Instructions* Seng Love PA-C - 08/22/2017 8:34 PM CDT Threatened Miscarriage WHAT YOU NEED TO KNOW: A threatened miscarriage occurs when you have vaginal bleeding within the first 20 weeks of . It means that a miscarriage may happen. A threatened miscarriage may also be called a threatenedabortion. DISCHARGE INSTRUCTIONS: Return to the emergency department if: ?? You feel weak or faint. ?? Your pain or cramping in your abdomen or back gets worse. ?? You have vaginal bleeding that soaks 1 or more pads in an hour. ?? You pass material that looks like tissue or large clots. Contact your healthcare provider or cheese blender if: ?? You have a fever. ?? You have trouble urinating, burning when you urinate, or feel a need to urinate often. ?? You have new or worsening vaginal bleeding. ?? You have vaginal pain or itching, or vaginal discharge that is yellow, green, or foul-smelling. ?? You have questions or concerns about your condition or care. Self-care: The following may help you manage your symptoms and decrease your risk for a miscarriage: ?? Do not put anything in your vagina. Do not have sex, douche, or use tampons. These actions may increase your risk for infection and miscarriage. ?? Rest as directed. Do not exercise or do strenuous activities. These activities may cause pretermlabor or miscarriage. Ask your healthcare provider what activities are okay to do. Stay healthy during : ?? Eat a variety of healthy foods. Healthy foods can help you get extra protein, water, and calories that you need while you are . Healthy foods include fruits, vegetables, whole-grain breads, low-fat dairy products, beans, lean meats, and fish. Avoid raw or undercooked meat and fish. Ask your healthcare provider if you need a special diet. ?? Take vitamins as directed. These help you get the right amount of vitamins and minerals. They may also decrease the risk of certain defects. ?? Do not drink alcohol or use illegal drugs. These can increase your risk for a miscarriage or harm your baby. ?? Do not smoke. Nicotine and other chemicals in cigarettes and cigars can harm your baby and causemiscarriage or labor. Ask your healthcare provider for information if you currently smoke and need help to quit. E-cigarettes or smokeless tobacco still contain nicotine. Do not use these products. ?? Decrease your risk for an infection. Always wash your hands before eating or preparing meals. Donot spend time with people who are sick. Ask your healthcare provider if you need immunizations such as the flu or hepatitis B vaccine. Immunizations may decrease your risk for infections that could cause a miscarriage. ?? Manage your medical conditions. Keep your blood pressure and blood sugars under control. Maintain a healthy weight during . Follow up with your cheese blender as directed: You may need to see your cheese blender frequently for ultrasounds or blood tests. Write down your questions so you remember to ask them during your visits. ?? 2017 [employer] Information is for End User's use only and may not be sold, redistributed or otherwise used for commercial purposes. All illustrations and images included in CareNotes?? are the copyrighted property of [employer] or [employer]. The above information is an educational manager only. It is not intended as medical [...] as of this encounter ED Notes * Enrique Dixon MD - 08/22/2017 8:40 PM CDT 08/22/2017 20:40 For this patient encounter, I reviewed the WHEEL BUFFER or PA documentation, procedures (if done), treatment plan, and medical decision making; and I had [id number] time with this patient. I have conducted an independent evaluation of this patient including a focused history of vaginal bleeding and lower abdominal pain for the past few days. Physical exam reveals unremarkable findings - which are in concordance with the WHEEL BUFFER/PA documentation except as otherwise noted. Final diagnoses: Pelvic pain in female Vaginal bleeding in , first trimester (Primary) Hospital Encounter on 08/22/17 HCG BETA BLOOD QUANTITATIVE Result Value Ref Range HCG Quant Serum 2624 mIU/mL URINALYSIS REFLEX MICROSCOPIC REFLEX CULTURE Result Value Ref Range Color UA Yellow Straw, Yellow Clarity UA Clear Clear Glucose UA Negative Negative Bili UA Negative Negative Ketone UA Negative Negative Specific [place] UA 1.015 1.005 - 1.030 Blood UA Negative Negative pH UA 5.0 5.0 - 8.0 pH Protein UA Negative Negative Urobilinogen UA Negative Negative mg/dL Nitrite UA Negative Negative Leukocyte UA Trace (Abnormal) Negative Urine Microscopy Urine microscopy to follow Reflex Status Culture to follow URINE MICROSCOPIC ONLY REFLEX TO CULTURE Result Value Ref Range Reflex Status Culture to follow RBC UA 0-5 0-5, None Seen # /hpf WBC UA 6-10 (Abnormal) 0-5, None Seen # /hpf Bacteria UA Trace (Abnormal) None Seen Squamous epithelial cells 0-2 None Seen, 0-2, 3-5 /hpf Mucus 2+ /LPF US OB LESS 14 WKS W TRANSV W DOPP (Results Pending) Scribe Attestation By signing my name below, IBrooks attest that this documentation has been prepared under thedirection and in the presence of Dr. Dixon. Electronically Signed: Brooks Gutierres 08/22/2017 8:59 PM Provider Attestation I, Dr. Dixon, personally performed the services described in this documentation. All medical record entries made by the scribe were at my direction and in my presence. I have reviewed the chart and agree that the record reflects my personal performance and is accurate and complete. Electronically Signed: Dr. Enrique Dixon MD 08/22/2017 8:59 PM * Tadeo Sutton RN - 08/22/2017 6:16 PM CDT PT comes to the ED c/o cramping and bleeding and believes she is about 4 weeks . Pt reportshaving bright red blood every morning and does not have a pad full. Pt states the amount is different every morning and stops when she is in shower. PT reports cramping throughout entire day. Pt has intermittent nausea today. Pt is c/o dizziness and increased fatigue. LMP: July 12, 2017 * Seng Love PA-C - 08/22/2017 6:11 PM CDT Provider contact with the patient: 08/22/2017 18:11 Carito Parikh [id number] [facility] EMERGENCY DEPARTMENT History Chief Complaint Patient presents with ??? Vaginal Bleeding LMP 07/12/2017; pt has had vaginal bleeding and cramping for past few days; her OB wants her to havea transvaginal US and blood work HPI Comments: 27-year-old female who is 5w6d presents to the ED at the request of her OBGYN secondary to first-trimester vaginal bleeding. The patient states she has been experiencing vaginal spotting on a near daily basis over the past month. She experiences intermittent lower abdominal cramping (right greater than left) however denies abdominal pain at this time. The patient saw her OBGYN earlier today who referred the patient to the ED for pelvic ultrasound rule out ectopic given persistent bleeding and persistent pain. Patient has not taken any medication for her symptoms. No recent history of fever, chills, nausea, vomiting, dysuria, or hematuria. She is . No past medical history on file. No [...] Not on file Social History Narrative ??? No narrative on file No Known Allergies Review of Systems Review of Systems Gastrointestinal: Positive for abdominal pain. Genitourinary: Vaginal spotting All other systems reviewed and are negative. Physical Exam BP 130/92 Pulse 101 Temp 98 ??F (36.7 ??C) Resp 14 Ht 1.575 m (5' 2 ) Wt 70.6 kg (155 lb 9.6 oz) LMP 07/12/2017 (Exact Date) SpO2 100% BMI 28.46 kg/m2 Physical Exam Constitutional: Vital signs are [...] no rales. She exhibits no tenderness. Abdominal: The abdomen is nontender to palpation Neurological: She is alert. Skin: Skin is [...] ECG Interpretation Lab/SPO2 Interpretation Hospital Encounter on 08/22/17 HCG BETA BLOOD QUANTITATIVE Result Value Ref Range HCG Quant Serum 2624 mIU/mL URINALYSIS REFLEX MICROSCOPIC REFLEX CULTURE Result Value Ref Range Color UA Yellow Straw, Yellow Clarity UA Clear Clear Glucose UA Negative Negative Bili UA Negative Negative Ketone UA Negative Negative Specific [place] UA 1.015 1.005 - 1.030 Blood UA Negative Negative pH UA 5.0 5.0 - 8.0 pH Protein UA Negative Negative Urobilinogen UA Negative Negative mg/dL Nitrite UA Negative Negative Leukocyte UA Trace (Abnormal) Negative Urine Microscopy Urine microscopy to follow Reflex Status Culture to follow URINE MICROSCOPIC ONLY REFLEX TO CULTURE Result Value Ref Range Reflex Status Culture to follow RBC UA 0-5 0-5, None Seen # /hpf WBC UA 6-10 (Abnormal) 0-5, None Seen # /hpf Bacteria UA Trace (Abnormal) None Seen Squamous epithelial cells 0-2 None Seen, 0-2, 3-5 /hpf Mucus 2+ /LPF US OB LESS 14 WKS W TRANSV W DOPP (Results Pending) Progress Notes ED Course 8:35 PM Pt comfortable at this time; Hcg increasing; US shows probable early intrauterine . I spoke with Dr. Love who would like patient to contact his office in the a.m. ED Course Medical Decision Making Orders Placed This Encounter ??? CULTURE URINE ??? US OB LESS 14 WKS W TRANSV W DOPP ??? HCG BETA BLOOD QUANTITATIVE ??? URINALYSIS REFLEX MICROSCOPIC REFLEX CULTURE ??? URINE MICROSCOPIC ONLY REFLEX TO CULTURE ??? nitrofurantoin monohyd macro crystals (MACROBID) 100 MG capsule Clinical Impression Final diagnoses: Pelvic pain in female Vaginal bleeding in , first trimester (Primary) documented in this encounter Plan of Treatment Not on file documented as of this encounter Procedures Procedure Name Priority Date/Time Associated Diagnosis Comments US OB LESS 14 WKS W TRANSV W DOPP STAT 08/22/2017 7:53 PM CDT Pelvic pain in female URINE MICROSCOPIC ONLY REFLEX TO CULTURE STAT 08/22/2017 6:28 PM CDT URINALYSIS REFLEX MICROSCOPIC REFLEX CULTURE STAT 08/22/2017 6:28 PM CDT CULTURE URINE STAT 08/22/2017 6:28 PM CDT HCG BETA BLOOD QUANTITATIVE STAT 08/22/2017 6:28 PM CDT documented in this encounter Results * US OB LESS 14 WKS W [...] at 10:14 AM Enrique Dixon MD ORDERABLES * CULTURE URINE (08/22/2017 6:28 PM CDT) Culture Urine <10,000 CFU/mL urogenital geovanna BENJAMIN 08/24/2017 6:53 AM CDT [facility] Urine URINE SPECIMEN OBTAINED BY CLEAN CATCH PROCEDURE / Unknown Collection / Unknown 08/22/2017 6:28 PM CDT 08/22/2017 6:32 PM CDT Seng Love PA-C LAB - MICROBI OLOGY ORDERABLES [facility] [address] [place] [address], [facility] [phone] * (ABNORMAL) URINE MICROSCOPIC ONLY REFLEX TO CULTURE (08/22/2017 6:28 PM CDT) Reflex Status Culture to follow 08/22/2017 6:46 PM CDT [facility] RBC UA 0-5 0-5, None Seen # /hpf 08/22/2017 6:46 PM CDT [facility] WBC UA 6-10(A) 0-5, None Seen # /hpf 08/22/2017 6:46 PM CDT [facility] Bacteria UA Trace(A) None Seen 08/22/2017 6:46 PM CDT [facility] Squamous Epithelial Cells 0-2 None Seen, 0-2, 3-5 /hpf 08/22/2017 6:46 PM CDT [facility] Mucus UA 2+ /LPF 08/22/2017 6:46 PM CDT [facility] Urine URINE SPECIMEN OBTAINED BY CLEAN CATCH PROCEDURE / Unknown Collection / Unknown 08/22/2017 6:28 PM CDT 08/22/2017 6:32 PM CDT Narrative [facility] - 08/22/2017 6:46 PM CDT Seng Pako Love PA-C LAB - URINALY SIS ORDERABLES [facility] [address] [place] [address] * (ABNORMAL) URINALYSIS REFLEX MICROSCOPIC REFLEX CULTURE (08/22/2017 6:28 PM CDT) Color UA Yellow Straw, Yellow 08/22/2017 6:40 PM CDT [facility] Clarity UA Clear Clear 08/22/2017 6:40 PM CDT [facility] Glucose UA Negative Negative 08/22/2017 6:40 PM CDT [facility] Bilirubin UA Negative Negative 08/22/2017 6:40 PM CDT [facility] Ketone UA Negative Negative 08/22/2017 6:40 PM CDT [facility] Specific [place] UA 1.015 1.005 - 1.030 08/22/2017 6:40 PM CDT [facility] Blood UA Negative Negative 08/22/2017 6:40 PM CDT [facility] pH UA 5.0 5.0 - 8.0 pH 08/22/2017 6:40 PM CDT [facility] Protein UA Negative Negative 08/22/2017 6:40 PM CDT [facility] Urobilinogen UA Negative Negative mg/dL 08/22/2017 6:40 PM CDT [facility] Nitrite UA Negative Negative 08/22/2017 6:40 PM CDT [facility] Leukocyte UA Trace(A) Negative 08/22/2017 6:40 PM CDT [facility] Urine Microscopy Urine microscopy to follow 08/22/2017 6:40 PM CDT [facility] Reflex Status Culture to follow 08/22/2017 6:40 PM CDT [facility] Urine URINE SPECIMEN OBTAINED BY CLEAN CATCH PROCEDURE / Unknown Collection / Unknown 08/22/2017 6:28 PM CDT 08/22/2017 6:32 PM CDT Narrative [facility] - 08/22/2017 6:40 PM CDT Seng Pako Love PA-C LAB - URINALY SIS ORDERABLES [facility] [address] [place] [address] * HCG BETA BLOOD QUANTITATIVE (08/22/2017 6:28 PM CDT) hCG Quantitative 2,624 mIU/mL 08/23/19 18 7:05 PM CDT [facility] Blood BLOOD SPECIMEN / Unknown Venipuncture / Unknown 08/22/2017 6:28 PM CDT 08/22/2017 6:32 PM CDT Narrative [facility] - 08/22/2017 7:05 PM CDT ? hCG Reference Range, mIU/mL: ? [...] makes unlikely. Seng Love PA-C LAB - ELECTRONIC COMPONENT PROCESSOR RY ORDERABLES [facility] [address] [place] [id number] documented in this encounter Visit Diagnoses Diagnosis Vaginal bleeding in , first trimester (HCC)- Primary Pelvic pain in female Unspecified symptom associated with female genital organs documented in this encounter Care Teams Story Reader Relationship Specialty Start Date End Date Huseyin Dangelo MD PCP - General Family Medicine 08/22/17 06/18/19 documented as of this encounter
--- OUTSIDE RECORDS SUMMARY | 2024-02-24 19:40 | XMS_ITS | Encounter Summary ---
Author Organization [facility] Address [address] [facility] [place] [address] Care Team Providers Care Soft Sugar Operator Head Name Role Phone Huseyin Dangelo MD Primary Care Provider [phone] Encounter Details Date Type Department Care Team (Late st Contact Info) Description 10/21/[address] [facility] - Rheumatology [address] [place], [place] [id number] Ahslee Magallon MD [address] [place] [address] Social History Tobacco Use Types Packs/Day Years [...] on filedocumented in this encounter Care Teams Soft Sugar Operator Head Relationship Specialty Start Date End Date Huseyin Dangelo MD PCP - General Family Medicine 08/22/17 06/18/19 documented as of this encounter
--- OUTSIDE RECORDS SUMMARY | 2024-02-24 19:40 | XMS_ITS | Encounter Summary ---
Author Organization [facility], formerly [facility] Address [address] [address] Care Team Providers Care Pipe Roller Name Role Phone Huseyin Dangelo MD Primary Care Provider [phone] Reason for Visit * Reason Comments GENERALIZED BODY ACHES pt. states that s he hurts all over. was dx with jasmeet in dec. Encounter Details Date Type Department Care Team (Late st Contact Info) Description 08/22/2018 10:58 AM CDT - 08/22/2018 1:04 PM CDT Emergency ER at [facility] [address] [place] [id number] Rk Faye DO [address] [place] [address] Arthralgia, unspecified joint (Primary Dx) Discharge Disposition: Home or Self [...] Sign Reading Time Taken Comments Blood Pressure 127/90 08/22/2018 10:08 AM CDT Pulse 91 08/22/2018 10:08 AM CDT Temperature 36.6 ??C (97.8 ??F) 08/22/2018 10:08 AM C DT Respiratory Rate 17 08/22/2018 10:08 AM CDT Oxygen Saturation 95% 08/22/2018 12:00 PM CDT Inhaled Oxygen Concentration - - Weight 68 kg (149 lb 14.6 oz) 08/22/2018 10:08 A M CDT Height 157.5 cm (5' 2 ) 08/22/2018 10:08 AM CDT Body Mass Index 27.42 08/22/2018 10:08 AM CDT documented in this encounter Discharge Instructions * Discharge Instructions* Rk FayeDO - 08/22/2018 12:39 PM CDT Arthralgia WHAT YOU NEED TO KNOW: Arthralgia [...] you have the painful joint. ?? Copyright [employer] 2018 Information is for End User's use only and may not be sold, redistributed or otherwise used for commercial purposes. All illustrations and images included in CareNotes?? are the copyrighted property of [employer] or [employer] The above information is an ed educational aide only. It is not intended as [...] times daily as needed for Anxiety diclofenac sodium EC (VOLTAREN) 50 MG tablet Take 50 mg by mouth 3 times daily 09/25/2018 hydroxychloroquine (PLAQUENIL) 200 MG tablet Take 200 mg by mouth once daily 09/25/2018 omeprazole (PRILOSEC) 20 MG capsule Take 20 mg by mouth daily before breakfast 0 predniSONE (DELTASONE) 5 MG tablet Take 15 mg by mouth once daily 02/25/2019 traMADol (ULTRAM) 50 MG tablet Take 50 mg by mouth every 6 hours as needed for Pain 10/02/2018 documented as of this encounter ED Notes * Rk Faye DO - 08/22/2018 11:53 AM CDT Provider contact with the patient: 08/22/2018 11:53 Carito Rausch [id number] [facility] EM[facility] History Chief Complaint Patient presents with ??? GENERALIZED BODY ACHES pt. states that she hurts all over. was dx with jasmeet in Comments: Carito Rausch is a 28 year old female with a history of Lupus and Fibromyalgia presenting to the ED with a chief complaint of weakness and body aches. The patient says that she has been in and out of hospitals for a year for these symptoms. She feels that she has been getting more weak over the past few months, and feels that she may have something other than Lupus causing her symptoms. She describes no longer being able to get dressed, use the bathroom, or simple tasks due to her worsening joint pains. Multiple ED visits as well as inpatient stay at [facility] earlier this year during which she underwent MRI and Neurology consultation without significant findings. Past Medical History: Diagnosis Date ??? Fibromyalgia [...] ??? Alcohol use No ??? Drug use: No ??? Sexual activity: Not on file Other Topics Concern ??? Not on file Social History Narrative Review of Systems Review of Systems Constitutional: Positive for malaise/fatigue. HENT: Negative. Eyes: Negative. Respiratory: Negative. Cardiovascular: Negative. Gastrointestinal: Negative. Negative for diarrhea, nausea and vomiting. Genitourinary: Negative. Musculoskeletal: Positive for joint pain. Skin: Negative. Neurological: Positive for weakness. Psychiatric/Behavioral: Negative. All other systems reviewed and are negative. Physical Exam BP 127/90 Pulse 91 Temp 97.8 ??F (36.6 ??C) Resp 17 Ht 1.575 m (5' 2 ) Wt 68 kg (149 lb 14.6 oz) SpO2 95% BMI 27.42 kg/m2 Patient Vitals for the past 24 hrs: Temp Pulse Resp BP SpO2 08/22/18 1200 - - - - 95 % 08/22/18 1130 - - - - 100 % 08/22/18 1008 97.8 ??F (36.6 ??C) 91 17 127/90 99 % Physical Exam Constitutional: She is oriented to person, place, and time. She appears well- developed and well-nourished. No distress. HENT: Head: Normocephalic and atraumatic. Right Ear: External ear normal. Left Ear: External ear normal. Nose: Nose normal. No sinus tenderness, nasal deformity or nasal septal hematoma. Mouth/Throat: Oropharynx is clear and moist. Eyes: Pupils are equal, round, and reactive to light. Conjunctivae and EOM are normal. Right eye exhibits no discharge. Left eye exhibits no discharge. No scleral icterus. Neck: Normal range [...] Bowel sounds are normal. She exhibits no distension and no mass. There is no tenderness. There is no rebound and no guarding. Musculoskeletal: She exhibits no edema or tenderness. Ranges all joints without significant pain. No overt swelling or erythema is noted despite patient's subjective complaints of swelling diffusely. Neurological: She is alert and oriented to person, place, and time. She exhibits normal muscle tone. Coordination normal. GCS eye subscore is 4. GCS verbal subscore is 5. GCS motor subscore is 6. Skin: Skin is warm and dry. No rash noted. No erythema. No pallor. Psychiatric: She has a normal mood and affect. Her behavior is normal. Judgment and thought contentnormal. Nursing note and vitals reviewed. Medications Current Outpatient Prescriptions Medication Sig Dispense Refill ??? ALPRAZolam (XANAX) 0.25 MG tablet Take 0.25 mg by mouth 3 times daily as needed for Anxiety ??? diclofenac sodium EC (VOLTAREN) 50 MG tablet Take 50 mg by mouth 3 times daily ??? hydroxychloroquine (PLAQUENIL) 200 MG tablet Take 200 mg by mouth once daily ??? omeprazole (PRILOSEC) 20 MG capsule Take 20 mg by mouth daily before breakfast ??? predniSONE (DELTASONE) 5 MG tablet Take 5 mg by mouth ??? traMADol (ULTRAM) 50 MG tablet Take 50 mg by mouth every 6 hours as needed for Pain Procedures Procedures ECG Interpretation ECG Interpretation Lab Interpretation Oxygen Saturation Interpretation The oxygen saturation level is: 99%. The patient was on Room Air for the saturation measurement. Measurement frequency: Spot Check. Oxygen saturation interpretation is Normal. Intervention(s) used: None. Hospital Encounter on 08/22/18 CBC W AUTO DIFFERENTIAL Result Value Ref Range WBC 7.0 4.4 - 10.7 x10E9/L WBC Corrected x10E9/L RBC 4.31 3.80 - 5.20 x10E12/L Hemoglobin 10.8 (L) 12.0 - 15.6 gm/dL Hematocrit 35.0 (L) 35.9 - 45.5 % MCV 81.2 80.7 - 98.3 fl MCH 25.1 (L) 26.7 - 34.0 pg MCHC 30.9 30.8 - 35.9 gm/dL Platelet Count 333 153 - 416 x10E9/L RDW-CV 18.4 (H) 12.1 - 14.9 % MPV 9.9 9.4 - 12.9 fl Neutrophils % 89.2 (H) 44.0 - 73.0 % Lymphocytes % 7.1 (L) 20.0 - 43.0 % Monocytes % 3.0 (L) 5.0 - 13.0 % Eosinophils % 0.3 0.0 - 6.0 % Basophils % 0.1 0.0 - 2.0 % Immature Granulocytes 0.3 0 - 1 % Neutrophil Absolute 6.27 2.01 - 7.14 x10E9/L Lymphocytes Absolute 0.50 (L) 1.07 - 3.94 x10E9/L Monocytes Absolute 0.21 (L) 0.26 - 1.07 x10E9/L Eosinophils Absolute 0.02 0 - 0.47 x10E9/L Basophils Absolute 0.01 0 - 0.08 x10E9/L Immature Granulocytes Absolute 0.02 0.00 - 0.06 x10E9/L nRBC Auto 0 /100 WBC COMPREHENSIVE METABOLIC PANEL Result Value Ref Range Glucose 95 74 - 106 mg/dL Sodium 140 136 - 145 mmol/L Potassium 4.0 3.5 - 5.1 mmol/L Chloride 105 98 - 107 mmol/L CO2 25 23 - 31 mmol/L Calcium 9.6 8.4 - 10.2 mg/dL Anion Gap 10 8 - 16 mmol/L BUN 11 7 - 18.7 mg/dL Creatinine 0.72 0.55 - 1.02 mg/dL Alkaline Phosphatase 43 40 - 150 U/L ALT 12 (L) 13 - 61 U/L AST 15 5 - 34 U/L Protein Total 7.3 6.4 - 8.3 gm/dL Albumin 4.1 3.5 - 5.2 gm/dL Bilirubin Total 0.4 0.2 - 1.0 mg/dL eGFR by MDRD >60 >60 mL/min/1.73m2 eGFR by MDRD >60 >60 mL/min/1.73m2 ERYTHROCYTE SEDIMENTATION RATE Result Value Ref Range Erythrocyte Sedimentation Rate Automated 9 0 - 20 MM/HR C-REACTIVE PROTEIN Result Value Ref Range C-Reactive Protein 1.00 (H) <=0.50 mg/dL CK BLOOD Result Value Ref Range CK 16 (L) 35 - 232 U/L No orders to display Progress Notes Initial plan for diagnostic studies including: CBC, CMP, red blood cell sedimentation reate, CRP, CK. Will give fluids. Plan for reassessment. The chronicity of this patients complaints, Coupled with a benign exam and normal ED workup, Does not lend to an acutely dangerous pathology. Further follow up is recommended, But there is no currentevidence that an emergency condition exists. Reassurance given and instructed that further w/u for this chronic problem could be accomplished safely in the outpatient setting. Advised patient to follow up with [facility] or [facility] [place] [place] in [facility] Results of all emergency department testing were discussed with the patient. Working diagnosis and treatment plan discussed. The patient was informed to follow up with neurology. I reviewed dischargeinstructions with the patient. Patient understands these instructions regarding their diagnosis, expectations, follow up, and return precautions. All questions were answered prior to discharge. The patient feels well and is stable at discharge. The patient appears nontoxic with stable vital signs. The patient is to return to the ER if symptoms worsen or other concerns arise. The patient is agreeable with discharge. ED Course ED Course Medical Decision Making I have reviewed the: Previous Chart, Nursing Notes, Vitals. I have interpreted the following results: Labs, Oxygen Saturation. No elevation inflammatory markers. No evidence of end-organ damage from lupus. Given the chronicityof her plants and overall well appearance, patient was appropriately referred to outpatient settingfor further workup this chronic condition. Discussed with her PCP who agrees with this plan. Orders Placed This Encounter ??? CBC W AUTO DIFFERENTIAL ??? COMPREHENSIVE METABOLIC PANEL ??? ERYTHROCYTE SEDIMENTATION RATE ??? C-REACTIVE PROTEIN ??? CK BLOOD ??? lactated ringers IV bolus Clinical Impression Final diagnoses: Arthralgia, unspecified joint (Primary) Follow-up Information Follow-up With Details Why Contact Info Huseyin Dangelo MD Call in 1 week [id number] [phone] User Date/Time Rk Faye DO Rachel Aug 22, 2018 12:39 PM Scribe Signature and Attestation By signing my name below, I, Carlos A Jackson, attest that this documentation has been prepared under the direction and in the presence of Rk Faye DO Electronically Signed: libertad Galaviz. 08/22/2018. Time 1207 Provider Signature and Attestation I, Dr. Rk Faye, personally performed the services described in this documentation. All medicalrecord entries made by the scribe were at my direction and in my presence. I have reviewed the chart and agree that the record reflects my personal performance and is accurate and complete. DO Nomi. 08/22/2018. documented in this encounter Plan of Treatment Not on file documented as of this encounter Procedures Procedure Name Priority Date/Time Associated Diagnosis Comments C-REACTIVE PROTEIN STAT 08/22/2018 11 :21 AM CDT ERYTHROCYTE SEDIMENTATION RATE STAT 08/22/2018 11:21 AM CDT CBC W AUTO DIFFERENTIAL STAT 08/22/2018 11:21 AM CDT COMPREHENSIVE METABOLIC PANEL STAT 08/22/2018 11:21 AM CDT CK BLOOD STAT 08/22/2018 11:21 AM CDT documented in this encounter Results * (ABNORMAL) CK BLOOD (08/22/2018 11:21 AM CDT) CK 16(L) 35 - 232 U/L 08/22/2018 11:48 AM CDT [facility] Blood BLOOD SPECIMEN / Unknown Venipuncture / Unknown 08/22/2018 11:21 AM CDT 08/22/2018 11:25 AM CDT Rk Faye DO LAB - CHEMISTRY GREGORY R[facility]A [facility] Organization Address City/State/ZIP Co de Phone Number [facility] [address] [place] [phone] * (ABNORMAL) C-REACTIVE PROTEIN (08/22/2018 11:21 AM CDT) C-Reactive Protein 1.00(H) <=0.50 mg/dL 08/22/2018 11:48 AM CDT [facility] Blood BLOOD SPECIMEN / Unknown Venipuncture / Unknown 08/22/2018 11:21 AM CDT 08/22/2018 11:25 AM CDT Rk Faye DO LAB - CHEMISTRY ORDE RABMAO [facility] [address] [id number] * ERYTHROCYTE SEDIMENTATION RATE (08/22/2018 11:21 AM CDT) Erythrocyte Sedimentation Rate Automated 9 0 - 20 MM/HR 08/22/2018 11:40 AM CDT [facility] Blood BLOOD SPECIMEN / Unknown Venipuncture / Unknown 08/22/2018 11:21 AM CDT 08/22/2018 11:25 AM CDT Rk Faye DO LAB - HEMATOLOGY ORD ERABLES Performing Organization Address [facility]/ZIP Co de Phone Number [facility] [address] [phone] * (ABNORMAL) COMPREHENSIVE METABOLIC PANEL (08/22/2018 11:21 AM CDT) Glucose 95 74 - 106 mg/dL 08/22/2018 11:48 AM [facility] Sodium 140 136 - 145 mmol/L 08/22/2018 11:48 AM [facility] Potassium 4.0 3.5 - 5.1 mmol/L 08/22/2018 11:48 AM [facility] Chloride 105 98 - 107 mmol/L 08/22/2018 11:48 AM [facility] CO2 25 23 - 31 mmol/L 08/22/2018 11:48 AM [facility] Calcium 9.6 8.4 - 10.2 mg/dL 08/22/2018 11:48 AM [facility] Anion Gap 10 8 - 16 mmol/L 08/22/2018 11:48 AM [facility] BUN 11 7 - 18.7 mg/dL 08/22/2018 11:48 AM [facility] Creatinine 0.72 0.55 - 1.02 mg/dL 08/22/2018 11:48 AM [facility] Alkaline Phosphatase 43 40 - 150 U/L 08/22/2018 11:48 AM [facility] ALT 12(L) 13 - 61 U/L 08/22/2018 11:48 AM [facility] AST 15 5 - 34 U/L 08/22/2018 11:48 AM CDT [facility] Protein Total 7.3 6.4 - 8.3 gm/dL 08/22/2018 11:48 AM CDT [facility] Albumin 4.1 3.5 - 5.2 gm/dL 08/22/2018 11:48 AM CDT [facility] Bilirubin Total 0.4 0.2 - 1.0 mg/dL 08/22/2018 11:48 AM CDT [facility] eGFR by MDRD >60 >60 mL/min/1.7 3m2 08/22/2018 11:48 AM CDT [facility] eGFR by MDRD >60 >60 mL/min/1.7 3m2 08/22/2018 11:48 AM CDT [facility] Blood BLOOD SPECIMEN / Unknown Venipuncture / Unknown 08/22/2018 11:21 AM CDT 08/22/2018 11:25 AM CDT [facility] - 08/22/2018 11:48 AM CDT Attention clinician: BUN Reference Range has changed. Rk Faye DO LAB - CHEMISTRY GREGORY RIVERA [facility] Organization Address City/State/ZIP Co de Phone Number [facility] [address] [place] [address] * (ABNORMAL) CBC W AUTO DIFFERENTIAL (08/22/2018 11:21 AM CDT) WBC 7.0 4.4 - 10.7 x10E9/L 08/22/2018 11:32 AM CDT [facility] WBC Corrected x10E9/L 08/22/2018 11:32 AM CDT [facility] RBC 4.31 3.80 - 5.20 x10E12/L 08/22/2018 11:32 AM CDT [facility] Hemoglobin 10.8(L) 12.0 - 15.6 gm/dL 08/22/2018 11:32 AM CDT [facility] Hematocrit 35.0(L) 35.9 - 45.5 % 08/22/2018 11:32 AM CDT [facility] MCV 81.2 80.7 - 98.3 fl 08/22/2018 11:32 AM CDT [facility] MCH 25.1(L) 26.7 - 34.0 pg 08/22/2018 11:32 AM [facility] MCHC 30.9 30.8 - 35.9 gm/dL 08/22/2018 11:32 AM [facility] Platelet Count 333 153 - 416 x10E9/L 08/22/2018 11:32 AM [facility] RDW-CV 18.4(H) 12.1 - 14.9 % 08/22/2018 11:32 AM [facility] MPV 9.9 9.4 - 12.9 fl 08/22/2018 11:32 AM [facility] Neutrophils % 89.2(H) 44.0 - 73.0 % 08/22/2018 11:32 AM [facility] Lymphocytes % 7.1(L) 20.0 - 43.0 % 08/22/2018 11:32 AM [facility] Monocytes % 3.0(L) 5.0 - 13.0 % 08/22/2018 11:32 AM [facility] Eosinophils % 0.3 0.0 - 6.0 % 08/22/2018 11:32 AM [facility] Basophils % 0.1 0.0 - 2.0 % 08/22/2018 11:32 AM [facility] Immature Granulocytes 0.3 0 - 1 % 08/22/2018 11:32 AM [facility] Neutrophil Absolute 6.27 2.01 - 7.14 x10E9/L 08/22/2018 11:32 AM [facility] Lymphocytes Absolute 0.50(L) 1.07 - 3.94 x10E9/L 08/22/2018 11:32 AM [facility] Monocytes Absolute 0.21(L) 0.26 - 1.07 x10E9/L 08/22/2018 11:32 AM [facility] Eosinophils Absolute 0.02 0 - 0.47 x10E9/L 08/22/2018 11:32 AM [facility] Basophils Absolute 0.01 0 - 0.08 x10E9/L 08/22/2018 11:32 AM [facility] Immature Granulocytes Absolute 0.02 0.00 - 0.06 x10E9/L 08/22/2018 11:32 AM CDT [facility] nRBC Auto 0 /100 WBC 08/22/2018 11:32 AM CDT [facility] Blood BLOOD SPECIMEN / Unknown Venipuncture / Unknown 08/22/2018 11:21 AM CDT 08/22/2018 11:25 AM CDT Rk Faye DO LAB - HEMATOLOGY ORD ERABLES [facility] [address] [id number] documented in this encounter Visit Diagnoses Diagnosis Arthralgia, unspecified joint- Primary documented in this encounter Administered Medications Inactive Administered Medications - up to 3 most recent administrations Medication Order MAR Action Action Date Dose Rate Site lactated ringers IV bolus 1,000 mL, at 1,935.48 mL/hr, Administer over 31 Minutes, ONCE, 1 dose, On Rachel 08/22/18 at 1130 $ New Bag/Syringe 08/22/2018 11:25 AM CDT 1,000 mL 1935.48 mL/hr documented in this encounter Active and Recently Administered Medications Times are shown in CDT. Scheduled Medication Order 08/20/2018 08/21/2018 08/22/2018 lactated ringers IV bolus (COMPLETED) 1,000 mL, at 1,935.48 mL/hr, Administer over 31 Minutes, ONCE, 1 dose, On Rachel 08/22/18 at 1130 1125 ($ New Bag/Syri nge - Provider: Rachelle Patel RN)[id number] (Due: Stopped - Provider: Rachelle Patel RN) documented in this encounter Care Teams Pipe Roller Relationship Specialty Start Date End Date Huseyin Dangelo MD PCP - General Family Medicine 08/22/17 06/18/19 documented as of this encounter
--- OUTSIDE RECORDS SUMMARY | 2024-02-24 19:41 | XMS_ITS | Encounter Summary ---
Author Organization [facility] Address [address] [place] [address]. [place], [place] [id number] [place] [id number] Care Team Providers Care Licensed Plumber Name Role Phone Huseyin Dangelo MD Primary Care Provider [phone] Reason for Visit * Reason Comments Abdominal Pain Encounter Details Date Type Department Care Team (Late st Contact Info) Description 07/28/2020 12:21 PM CDT - 07/28/2020 4:12 PM CDT Emergency [facility] [place] [address] Lilian Lawrence, [address] [address] Abdominal Pain Discharge Disposition: Home or Self Care (Routine Discharge) Social History Tobacco Use Types Packs/Day Years Used Date Smoking Tobacco: Never Smokeless Tobacco: Never Alcohol Use Standard Drinks/Week Comments Yes 0 (1 standard drink = 0.6 oz pur e alcohol) Comments Yes Sex and Gender Information Value Date Recorded Sex Assigned at Not on file Legal Sex Female 2:51 PM CDT Gender Identity Not on file Sexual Orientation Not on file COVID-19 Exposure Response Date Recorded In the last month, have you been in contact with someone who was confirmed or suspected to have Coronavirus / COVID-19? No / Unsure 07/28/2020 11:01 AM CDT documented as of this encounter Last Filed Vital Signs Vital Sign Reading Time Taken Comments Blood Pressure 112/77 07/28/2020 2:46 PM CDT Pulse 75 07/28/2020 2:46 PM CDT Temperature 36.4 ??C (97.5 ??F) 07/28/2020 1 1:30 AM CDT Respiratory Rate 20 07/28/2020 2:46 PM CDT Oxygen Saturation 98% 07/28/2020 2:46 PM CDT Inhaled Oxygen Concentration - - Weight 80.6 kg (177 lb 11.1 oz) 021 11:30 AM CDT Height 157.5 cm (5' 2 ) 07/28/2020 11:3 0 AM CDT Body Mass Index 32.5 07/28/2020 11:30 AM CDT documented in this encounter Discharge Instructions * Discharge Instructions* MELINDA Kimball - 07/28/2020 3:41 PM CDT Tylenol for pain, if your strep swab is negative, I would recommend adding may be a daily antihistamine like Zyrtec as long as this is okay with your senior consultant/GYN. I would recommend bedrest as they have recommended, though I understand the difficulty in staying home from work. We apologize for your long stay and delay while here in the emergency room, but you are welcome back at anytime with new or worsening symptoms. Thank you for giving us the opportunity to care for you today. If at any point you are becoming more ill, please call your doctor, or go to the ER. You are always welcome back. If you have any questions about this visit, concerns about your symptoms, questions about your medications or other concerns, please give us a call. Our practice is committed to providing you the very best in healthcare. We want to hear from you! Please fill out the survey you get from us. Your feedback is anonymous and helps us improve the patient experience for you and others in the community we serve. - MELINDA Ramos- - Emergency Medicine Provider * Attachments The following attachments cannot be sent through Care Everywhere. * ??? The Fourth Month (Marshallese) * Sore Throat in Adults (Marshallese) documented in this encounter Medications at Time of Discharge hydroxychloroquine 200 MG tablet Take 400 mg by mouth daily. 07/12/2020 documented as of this encounter ED Notes * Angela Carney RN - 07/28/2020 4:11 PM CDT Provider discussed today's findings with the patient. The patient has been given information regarding their treatment, follow up and concerning symptoms for which they should seek urgent or emergentattention. I have expressed the importance of seeking attention should there be any new, or worsening symptoms or persistence of their condition. Patient verbalized understanding of the discharge instructions. * MELINDA Kimball - 07/28/2020 3:39 PM CDT Chief Complaint Chief Complaint Patient presents with ??? Abdominal Pain History of Present Illness 30-year-old female presents for evaluation of her abdominal pain and vaginal spotting. She is 15 weeks . This is her third . She had a 16- week stillborn gestation in a miscarriage previously. 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 She is currently taking prednisone and is being monitored by the senior consultant/GYN at [facility]. She was recently advisedthat she had a placental tear and was advised to have 10 days of bedrest, she states she was unableto do bedrest because she has high stress work career and is unable to take the time off at this time. Also notes that she has had a sore throat and has occasional fevers, states that she was advised her throat was red but it is painful when she swallows. Medical History ALLERGIES: Allergies Allergen Reactions ??? Solu-Medrol [Methylprednisolone] Anaphylaxis ??? Penicillins Hives and Throat swelling MEDICATIONS: Prior to Admission medications Not on File PAST MEDICAL HISTORY: Past Medical History: Diagnosis Date ??? Lupus (CMS/HCC) PAST SURGICAL HISTORY: Past Surgical History: Procedure Laterality Date ??? FOREARM/WRIST SURGERY UNLISTED FAMILY HISTORY: No family history on file. SOCIAL HISTORY: Social History Tobacco Use ??? Smoking status: Never Smoker ??? Smokeless tobacco: Never Used Substance Use Topics ??? Alcohol use: Yes ??? Drug use: No Review of Systems Review of Systems Constitutional: Negative for chills and fever. HENT: Negative for congestion, sinus pain and sore throat. Eyes: Negative for pain and redness. Respiratory: Negative for cough, chest tightness, shortness of breath and wheezing. Cardiovascular: Negative for chest pain. Gastrointestinal: Positive for abdominal pain. Negative for constipation, diarrhea, nausea and vomiting. Genitourinary: Positive for vaginal bleeding and vaginal discharge. Musculoskeletal: Negative for arthralgias and joint swelling. Skin: Negative for rash and wound. Neurological: Negative for headaches. Psychiatric/Behavioral: Negative for agitation. The patient is not nervous/anxious. Physical Exam Filed Vitals: 07/28/20 1130 07/28/20 1446 BP: 115/80 112/77 Pulse: 94 75 Resp: 20 20 Temp: 97.5 ??F (36.4 ??C) TempSrc: Temporal SpO2: 96% 98% Weight: 80.6 kg (177 lb 11.1 oz) Height: 5' 2 (1.575 m) Physical Exam Vitals and nursing note reviewed. Constitutional: Appearance: She is well-developed. HENT: Head: Normocephalic. Mouth/Throat: Pharynx: Posterior oropharyngeal erythema present. Tonsils: No tonsillar exudate. 1+ on the right. 1+ on the left. Eyes: Pupils: Pupils are equal, round, and reactive to light. Cardiovascular: Rate and Rhythm: Normal rate and regular rhythm. Pulmonary: Effort: Pulmonary effort is normal. Breath sounds: Normal breath sounds. Abdominal: Comments: Bedside ultrasound reveals active fetus with heart rate in the 140s Musculoskeletal: General: Normal range of motion. Lymphadenopathy: Cervical: No cervical adenopathy. Skin: General: Skin is warm and dry. Neurological: Mental Status: She is alert and oriented to person, place, and time. Diagnostic Studies / Procedures ELECTROCARDIOGRAMS: No results found for this visit on 07/28/20. LABORATORY STUDIES: Results for orders placed or performed during the hospital encounter of 07/28/20 CBC W/DIFF AUTOMATED Result Value Ref Range WBC 10.9 4.5 - 11.0 x10'3/uL RBC 3.99 (L) 4.20 - 5.40 x10'6/uL HGB 12.3 12.0 - 16.0 G/DL HCT 35.9 (L) 38.0 - 48.0 % MCV 90.0 81.0 - 99.0 FL MCH 30.8 27.0 - 31.0 PG MCHC 34.3 32.0 - 36.0 G/DL RDW 13.0 11.5 - 14.5 % PLT 261 130 - 400 x10'3/uL MPV 9.4 9.3 - 12.2 FL DIFFERENTIAL TYPE AUTOMATED DIFFERENTIAL NEUTROPHILS 88.5 % LYMPHOCYTES 6.0 % MONOCYTES 4.3 % EOSINOPHILS 0.6 % BASOPHILS 0.2 % IMMATURE GRANS 0.4 % ABS. NEUTROPHILS TOTAL 9.61 (H) 1.80 - 7.70 x10'3/uL ABS. LYMPHOCYTES 0.65 (L) 1.00 - 4.80 x10'3/uL ABS. MONOCYTES 0.47 0.24 - 0.86 x10'3/uL ABS. EOSINOPHILS 0.06 0.04 - 0.36 x10'3/uL ABS. BASOPHILS 0.02 0.01 - 0.08 x10'3/uL ABS. IMMATURE GRANULOCYTES 0.04 0.00 - 0.49 x10'3/uL PROTIME/INR, VENOUS Result Value Ref Range Protime 12.2 10.2 - 12.9 SEC INR 1.0 COMPREHENSIVE METABOLIC PANEL Result Value Ref Range GLUCOSE 89 70 - 99 MG/DL BUN 7 7 - 18 MG/DL CREATININE S/P/B 0.42 (L) 0.55 - 1.02 MG/DL SODIUM 137 136 - 145 MMOL/L POTASSIUM 4.0 3.5 - 5.1 MMOL/L CHLORIDE S/P/B 105 100 - 108 MMOL/L CO2 28.4 21 - 32 MMOL/L CALCIUM 9.8 8.5 - 10.1 MG/DL BILIRUBIN TOTAL S/P/B 0.2 0.2 - 1.2 MG/DL TOTAL PROTEIN S/P/B 7.1 6.4 - 8.2 G/DL ALBUMIN S/P/B 3.3 (L) 3.4 - 5.0 G/DL AST 10 (L) 15 - 37 U/L ALT 16 14 - 55 U/L ALKALINE PHOSPHATASE S/P/B 47 (L) 50 - 136 U/L ANION GAP 3.6 (L) 5 - 15 MMOL/L BUN CREATININE RATIO 16.8 6 - 26 A/G RATIO 0.9 (L) 1.0 - 2.0 RATIO eGFR Non-Afr. Amer. >90 >90 ML/MIN/1.73 M2 eGFR Afr. Amer. >90 >90 ML/MIN/1.73 M2 URINALYSIS Result Value Ref Range Specimen Type URINE CLEAN CATCH COLOR (U) LIGHT YELLOW TRANSPARENCY CLEAR Specific [place] (U) 1.024 1.001 - 1.030 U PH 6.0 5.0 - 9.0 LEUKOCYTE ESTERASE NEGATIVE NEGATIVE NITRITES NEGATIVE NEGATIVE PROTEIN (U) 10 <30 MG/DL URINE GLUCOSE NORMAL NORMAL MG/DL U KETONES NEGATIVE NEGATIVE MG/DL UROBILINOGEN NORMAL NORMAL MG/DL BILIRUBIN (U) NEGATIVE NEGATIVE MG/DL BLOOD NEGATIVE NEGATIVE CULTURE & SENSITIVITY INDICATED? CULTURE IS NOT INDICATED HCG QUANTITATIVE SERUM Result Value Ref Range HCG, QUANTITATIVE 78,766 MIU/ML BLOOD TYPING, ABO AND RH Result Value Ref Range ABO/RH A POSITIVE RAPID STREP A Specimen: THROAT Result Value Ref Range Specimen Type THROAT RAPID STREP TEST NEGATIVE NEGATIVE IMAGING STUDIES: No orders to display MEDICATIONS: Medications - No data to display There are no discharge medications for this patient. ED Course / Medical Decision Making MDM Number of Diagnoses or Management Options Abdominal pain during in second trimester Sore throat Diagnosis management comments: She would rather not wait any longer for evaluation or formal ultrasound after having the reassurance of seeing her active fetus with a heart rate on the bedside ultrasound that I performed. I strongly encouraged her to continue with bedrest as she has been advised byher senior consultant/GYN. We did strep testing, but I advised that it is unlikely that her strep is positive due to the appearance of her throat, we discussed daily antihistamines and I also offered flu testing which patient declined at this time due to not desiring the flu nasal swab. Amount and/or Complexity of Data Reviewed Decide to obtain previous medical records or to obtain history from someone other than the patient:yes Clinical Impression Abdominal pain during in second trimester (Primary) Sore throat Disposition: Discharge NOTE: I dictated portions of this note using [email or web address] speech recognition software. Occasional wrong word or sound-alike substitutions may have occurred due to the inherent limitations of voice recognition software. MELINDA KIMBALL 07/28/2020 MELINDA Kimball 07/28/20 1623 Cosigned by Murphy Minor MD at 07/29/2020 2:59 PM CDT * Angela Carney RN - 07/28/2020 3:21 PM CDT Pt multiple times asking to leave and stating she wanted to go back to work Provider notified and at bedside * Angela Carney RN - 07/28/2020 2:38 PM CDT Pt reports has been spotting, Ultrasound notified Provider notified * Angela Carney RN - 07/28/2020 2:16 PM CDT Pt reports having sore throat and runny nose for the last couple of weeks. Upon inspection back of throat is red. Pt reports attempting flonase and Claritin OTC with minimal relief. Provider notified * Angela Carney RN - 07/28/2020 1:59 PM CDT Updated pt on POC, no questions or concerns at this time. Reports wanting something to eat/drink, Per provider nothing to eat at this time until tests results. Will continue to monitor * Angela Carney RN - 07/28/2020 1:57 PM CDT FHT difficult to assess, brief period heard with a rate of 130-140's * Karen Cheng NP - 07/28/2020 12:58 PM CDT [place], [place] EMERGENCY DEPARTMENT ENCOUNTER Medical Screening Examination 07/28/20 12:58 PM Chief Complaint : Abdominal Pain HPI : Carito Rausch is a 30-year-old female who presents 15 weeks with spotting though , , high risk with lupus in remission and latia's. C/o lower abdominal pain, had a 6month still born and 16 week miscarriage. I am a basket case today' Single iup,has a tear behind the placenta per US from [facility], per patient Supposed to be on bedrest but is too busy at work , 'I know' Is under High RIsk at [facility] Vital Signs: Filed Vitals: 07/28/20 1130 BP: 115/80 Pulse: 94 Resp: 20 Temp: 97.5 ??F (36.4 ??C) TempSrc: Temporal SpO2: 96% Weight: 80.6 kg (177 lb 11.1 oz) Height: 5' 2 (1.575 m) Physical exam: A brief physical exam was completed to facilitate/expedite patient care. Dee findings include: anxious, abd is not board like. Plan: Labs & Imaging was ordered to facilitate patient care. Karen Cheng NP 07/28/20 1308 Cosigned by Marci Sanders MD at 07/28/2020 2:07 PM CDT * Rut Barker RN - 07/28/2020 11:32 AM CDT Pt amb to ed from home with c/o abdominal cramping secondary to . Pt states pain began on her way to work today. Pt states she has had a past miscarriage and stillborn. Pt rating pain a 10/10 pt has hx lupus and addisons diseasr documented in this encounter Plan of Treatment Not on file documented as of this encounter Procedures Procedure Name Priority Date/Time Associated Diagnosis Comments RAPID STREP A STAT 07/28/2020 3:45 PM CDT PROTHROMBIN TIME, VENOUS STAT 07/28/2020 1:31 PM CDT COMPREHENSIVE METABOLIC PANEL STAT 07/28/2020 1:31 PM CDT CBC W/DIFF AUTOMATED STAT 07/28/2020 1:31 PM CDT HCG QUANT (SERUM)-CHORIONIC GONADOTROPIN STAT 07/28/2020 1:22 PM CDT HC BLOOD TYPING ABO STAT 07/28/2020 1 :22 PM CDT HC URINALYSIS AUTO W/O MICRO STAT 07/28/2020 1:02 PM CDT documented in this encounter Results * RAPID STREP A (07/28/2020 3:45 PM CDT) SPECIMEN TYPE THROAT 07/28/2020 3:44 PM CDT [facility] RAPID STREP TEST NEGATIVE NEGATIVE 07/28/2020 4:17 PM CDT [facility] STRUCTURE OF ANTERIOR PORTION OF NECK / Unknown 07/28/2020 3:45 PM CDT Lilian SAUCEDOP MICROBIOLOGY - GENERAL ORDE NICOLE Final Result [facility] [address] [place] [address], [place] [phone] * (ABNORMAL) COMPREHENSIVE METABOLIC PANEL (07/28/2020 1:31 PM CDT) GLUCOSE 89 70 - 99 MG/DL 07/28/2020 2:13 PM CDT [facility] BUN 7 7 - 18 MG/DL 07/28/2020 2:13 PM CDT [facility] CREATININE S/P/B 0.42(L) 0.55 - 1.02 MG/DL 07/28/2020 2:13 PM CDT [facility] SODIUM S/P/B 137 136 - 145 MMOL/L 07/28/2020 2:13 PM CDT [facility] POTASSIUM S/P/B 4.0 3.5 - 5.1 MMOL/L 07/28/2020 2:13 PM CDT [facility] CHLORIDE S/P/B 105 100 - 108 MMOL/L 07/28/2020 2:13 PM CDT [facility] CO2 28.4 21 - 32 MMOL/L 07/28/2020 2:13 PM CDT [facility] CALCIUM S/P/B 9.8 8.5 - 10.1 MG/DL 07/28/2020 2:13 PM CDT [facility] BILIRUBIN TOTAL S/P/B 0.2 0.2 - 1.2 MG/DL 07/28/2020 2:13 PM CDT [facility] Comment: THIS ASSAY IS NOT RECOMMENDED FOR PATIENTS UNDERGOING TREATMENT WITH ELTROMBOPAG DUE TO THE POTENTIAL FOR FALSELY ELEVATED RESULTS. TOTAL PROTEIN S/P/B 7.1 6.4 - 8.2 G/DL 07/28/2020 2:13 PM CDT [facility] ALBUMIN S/P/B 3.3(L) 3.4 - 5.0 G/DL 07/28/2020 2:13 PM CDT [facility] AST 10(L) 15 - 37 U/L 07/28/2020 2:13 PM CDT [facility] ALT 16 14 - 55 U/L 07/28/2020 2:13 PM CDT [facility] ALKALINE PHOSPHATASE S/P/B 47(L) 50 - 136 U/L 07/28/2020 2:13 PM CDT [facility] ANION GAP 3.6(L) 5 - 15 MMOL/L 07/28/2020 2:13 PM CDT [facility] BUN CREATININE RATIO 16.8 6 - 26 07/28/2020 2:13 PM CDT [facility] A/G RATIO 0.9(L) 1.0 - 2.0 RATIO 07/28/2020 2:13 PM CDT [facility] EGFR NON-AFR. AMER. >90 >90 ML/MIN/1.7 3 M2 07/28/2020 2:13 PM CDT [facility] EGFR AFR. AMER. >90 >90 ML/MIN/1.7 3 M2 07/28/2020 2:13 PM CDT [facility] Comment: NOTE: eGFR is not calculated for patients <18 years of age. This is an estimated GFR (CKD EPI) and should not be used for calculating drug doses. 07/28/2020 1:31 PM CDT Karen Cheng NP LABORATORY Final Result [facility] [address] [place] [address], [place] [phone] * PROTIME/INR, VENOUS (07/28/2020 1:31 PM CDT) PROTIME 12.2 10.2 - 12.9 SEC 07/28/2020 2:04 PM CDT [facility] INR 1.0 07/28/2020 2:04 PM CDT [facility] Comment: Recommended INR Therapeutic Goals: ??2.0-3.0 Routine Therapy ??2.5-3.5 Mechanical Prosthetic Valves (High Risk) 07/28/2020 1:31 PM CDT us Karen Cheng NP LABORATORY Final Result [facility] [address] [place] [address], * (ABNORMAL) CBC W/DIFF AUTOMATED (07/28/2020 1:31 PM CDT) WBC 10.9 4.5 - 11.0 x10'3/uL 07/28/2020 1:46 PM CDT [facility] RBC 3.99(L) 4.20 - 5.40 x10'6/uL 07/28/2020 1:46 PM CDT [facility] HGB 12.3 12.0 - 16.0 G/DL 07/28/2020 1:46 PM CDT [facility] HCT 35.9(L) 38.0 - 48.0 % 07/28/2020 1:46 PM CDT [facility] MCV 90.0 81.0 - 99.0 FL 07/28/2020 1:46 PM CDT [facility] MCH 30.8 27.0 - 31.0 PG 07/28/2020 1:46 PM CDT [facility] MCHC 34.3 32.0 - 36.0 G/DL 07/28/2020 1:46 PM CDT [facility] RDW 13.0 11.5 - 14.5 % 07/28/2020 1:46 PM CDT [facility] PLT 261 130 - 400 x10'3/uL 07/28/2020 1:46 PM CDT [facility] MPV 9.4 9.3 - 12.2 FL 07/28/2020 1:46 PM CDT [facility] DIFFERENTIAL TYPE AUTOMATED DIFFERENTIAL 07/28/2020 1:46 PM CDT [facility] NEUTROPHILS % 88.5 % 07/28/2020 1:46 PM CDT [facility] LYMPHOCYTES % 6.0 % 07/28/2020 1:46 PM CDT [facility] MONOCYTES % 4.3 % 07/28/2020 1:46 PM CDT [facility] EOSINOPHILS 0.6 % 07/28/2020 1:46 PM CDT [facility] BASOPHILS 0.2 % 07/28/2020 1:46 PM CDT [facility] IMMATURE GRANS % 0.4 % 07/29/19 1:46 PM CDT [facility] ABS. NEUTROPHILS TOTAL 9.61(H) 1.80 - 7.70 x10'3/uL 07/28/2020 1:46 PM CDT [facility] ABS. LYMPHOCYTES 0.65(L) 1.00 - 4.80 x10'3/uL 07/28/2020 1:46 PM CDT [facility] ABS. MONOCYTES 0.47 0.24 - 0.86 x10'3/uL 07/28/2020 1:46 PM CDT [facility] ABS. EOSINOPHILS 0.06 0.04 - 0.36 x10'3/uL 07/28/2020 1:46 PM CDT [facility] ABS. BASOPHILS 0.02 0.01 - 0.08 x10'3/uL 07/28/2020 1:46 PM CDT [facility] ABS. IMMATURE GRANULOCYTES 0.04 0.00 - 0.49 x10'3/uL 07/28/2020 1:46 PM CDT [facility] 07/28/2020 1:31 PM CDT Karen Cheng TOMBSTONE ERECTOR HELPER LABORATORY Final Result Performing Organization Address [facility] de Phone Number [facility] [address] [place] [address], * HCG QUANTITATIVE SERUM (07/28/2020 1:22 PM CDT) HCG QUANTITATIVE 78,766 MIU/ML 07/29/19 2:28 PM CDT [facility] Comment: WEEKS OF ? REFERENCE RANGES Non- female ?< or = 2 ? 0.2 - 1 ? 5 - 50 ? 1 - 2 ? 50 - 500 ? 2 - 3 ? 100 - 5000 ? 3 - 4 ? 500 - 10,000 ? 4 - 5 ? 1000 - 50,000 ? 5 - 6 ? 10,000 - 100,000 ? 6 - 8 ? 15,000 - 200,000 ? 2 - 3 MONTHS ?10,000 - 100,000 07/28/2020 1:22 PM CDT Lilian Lawrence BUSINESS OPERATIONS SPECIALIST LABORATORY Final Resul t Performing Organization Address [facility]/ZIP Co de Phone Number [facility] [address] [place] [address], [place] [phone] * BLOOD TYPING, ABO AND RH (07/28/2020 1:22 PM CDT) ABO/RH A POSITIVE 07/28/2020 2:27 PM CDT [facility] 07/28/2020 1:22 PM CDT Karen Cheng TOMBSTONE ERECTOR HELPER BLOOD BANK TEST ORDERABLES Fi nal Result [facility] [address] [place] [address], [place] [phone] * URINALYSIS (07/28/2020 1:02 PM CDT) SPECIMEN TYPE URINE CLEAN CATCH 07/28/2020 1:01 PM CDT [facility] COLOR (U) LIGHT YELLOW 07/28/2020 2:08 PM CDT [facility] TRANSPARENCY CLEAR 07/28/2020 2:08 PM CDT [facility] SPECIFIC GRAVITY (U) 1.024 1.001 - 1.030 07/28/2020 2:08 PM CDT [facility] U PH 6.0 5.0 - 9.0 07/28/2020 2:08 PM CDT [facility] LEUKOCYTES (U) NEGATIVE NEGATIVE 07/28/2020 2:08 PM CDT [facility] NITRITES NEGATIVE NEGATIVE 07/28/2020 2:08 PM CDT [facility] PROTEIN (U) 10 <30 MG/DL 07/28/2020 2:08 PM CDT [facility] URINE GLUCOSE NORMAL NORMAL MG/DL 07/28/2020 2:08 PM CDT [facility] KETONES MG/DL (U) NEGATIVE NEGATIVE MG/DL 07/28/2020 2:08 PM CDT [facility] UROBILINOGEN NORMAL NORMAL MG/DL 07/28/2020 2:08 PM CDT [facility] BILIRUBIN (U) NEGATIVE NEGATIVE MG/DL 07/28/2020 2:08 PM CDT [facility] BLOOD (U) NEGATIVE NEGATIVE 07/28/2020 2:08 PM CDT [facility] CULTURE & SENSITIVITY INDICATED? CULTURE IS NOT INDICATED 07/28/2020 2:08 PM CDT [facility] URINE SPECIMEN OBTAINED BY CLEAN CATCH PROCEDURE / Unknown 07/28/2020 1:02 PM CDT us Karen Cheng TOMBSTONE ERECTOR HELPER URINE ORDERABLES Final Result [facility] [address] [place] [id number], documented in this encounter Visit Diagnoses Diagnosis Abdominal pain during in second trimester (HHS/HCC)- Primary Sore throat Acute pharyngitis documented in this encounter Care Teams Licensed Plumber Relationship Specialty Start Date End Date Huseyin Dangelo MD [address] [place] [id number] PCP - General FAMILY PRACTICE 11/27/18 documented as of this encounter
--- OUTSIDE RECORDS SUMMARY | 2024-02-24 19:41 | XMS_ITS | Clinical Summary ---
Author Organization [facility] Address [address] [place] [address]. [place], [place] [address] [place] [id number] Care Team Providers Care Planer Operator Name Role Phone Huseyin Dangelo MD Primary Care Provider [phone] Allergies Active Allergy Reactions Criticality Noted Date Comments Aripiprazole Other (see comment) Low 03/30/2020 Escitalopram Other (see comment),Rash Medium 0 Caused seizures Caused seizures Caused seizures Caused seizures Caused seizures Caused seizures Caused seizures Caused seizures Caused seizures Caused seizures Caused seizures Caused seizures Penicillins Hives,Throat swelling 07/28/2020 Medications valACYclovir 500 MG tablet Take 500 mg by mouth 2 (two) times a day. 08/16/2020 Active sertraline 25 MG tablet Take 25 mg by mouth daily. 08/11/2020 Active Multiple Vitamin (MULTIVITAMIN) capsule Take 1 capsule by mouth daily. Active hydroxychloroqu ine 200 MG tablet Take 400 mg by mouth daily. 07/12/2020 Active aspirin EC (ASPIRIN EC) 81 MG tablet Take 81 mg by mouth daily. Active Omeprazole Powder Take 20 mg by mouth as needed. Active predniSONE 5 mg tablet Take 5 mg by mouth daily. 08/09/2020 Active polyethylene glycol (MIRALAX) 17 GM/SCOOP powder Take 17 g by mouth 2 (two) times daily. Dissolve powder in 240 mL water 507 g 08/24/2020 Active Social History Tobacco Use Types Packs/Day Years Used Date Smoking Tobacco: Never Smokeless Tobacco: Never Alcohol Use Standard Drinks/Week Comments Yes 0 (1 standard drink = 0.6 oz pur e alcohol) Comments No Sex and Gender Information Value Date Recorded Sex Assigned at Not on file Legal Sex Female 2:51 PM CDT Gender Identity Not on file Sexual Orientation Not on file Last Filed Vital Signs Vital Sign Reading Time Taken Comments Blood Pressure 124/73 08/24/2020 3:00 PM CDT Pulse 88 08/24/2020 3:00 PM CDT Temperature 36.4 ??C (97.5 ??F) 07/28/2020 1 1:30 AM CDT Respiratory Rate 20 07/28/2020 2:46 PM CDT Oxygen Saturation 98% 07/28/2020 2:46 PM CDT Inhaled Oxygen Concentration - - Weight 80.6 kg (177 lb 11.1 oz) 021 11:30 AM CDT Height 157.5 cm (5' 2 ) 07/28/2020 11:3 0 AM CDT Body Mass Index 32.5 07/28/2020 11:30 AM CDT Plan of Treatment Health Maintenance Due Date Last Done Comments Cervical Cancer Screening Pa p Smear (Age 30 to 64) Every 3 Years 1992 Annual Physical 05/11/1995 Hepatitis C 2010 Hepatitis B Vaccines (1 of 3 - 19+ 3-dose series) 05/11/2011 Cervical Cancer Screening Pa p with HPV Testing (Age 30 to 64) Every 5 Years 2022 Cervical Cancer Screening with HPV 2022 COVID-19 Vaccine (2023-2 5 season) 2023 Influenza Adult (#1) 2023 DTaP, Tdap and Td Vaccines ( 2 - Td or Tdap) 12/01/2028 12/01/2018 HPV Vaccines Aged Out No longer eligi ble based on patient's age to complete this topic Meningococcal Vaccine Aged Out No michelle huseyin eligible based on patient's age to complete this topic Pneumococcal Vaccine: Pediat rics (0 to 5 Years) and At-Risk Patients (6 to 64 Years) Aged Out No longer eligi ble based on patient's age to complete this topic RSV Immunizations Under 20 Months Aged Out No longer eligible based on patient's age to complete this topic Insurance [facility] Care Teams Planer Operator Relationship Specialty Start [place] [address] [place] [address] PCP - General FAMILY PRACTICE 11/27/18
--- OUTSIDE RECORDS SUMMARY | 2024-02-24 19:41 | XMS_ITS | Encounter Summary ---
Author Organization [facility] Address [address] [place] [address]. [place], [place] [address] [place] [address] Care Team Providers Care Curriculum Developer Name Role Phone Huseyin Dangelo MD Primary Care Provider [phone] Reason for Visit * Reason Comments Arm Pain Vaginal Bleeding Encounter Details Date Type Department Care Team (Late st Contact Info) Description 12/05/2018 12:42 PM CDT - 12/05/2018 2:33 PM CDT Emergency [facility] [place] [address] Arm Pain; Vaginal Bleeding Discharge Disposition: Home or Self Care (Routine Discharge) Social History Tobacco Use Types Packs/Day Years Used Date Smoking Tobacco: Never Assessed Comments Yes Sex and Gender Information Value Date Recorded Sex Assigned at Not on file Legal Sex Female 2:51 PM CDT Gender Identity Not on file Sexual Orientation Not on file documented as of this encounter Last Filed Vital Signs Vital Sign Reading Time Taken Comments Blood Pressure 138/94 12/05/2018 2:31 PM CDT Pulse 86 12/05/2018 2:31 PM CDT Temperature 36.6 ??C (97.9 ??F) 12/05/2018 12:32 PM C DT Respiratory Rate 18 12/05/2018 2:31 PM CDT Oxygen Saturation 98% 12/05/2018 2:31 PM CDT Inhaled Oxygen Concentration - - Weight 68 kg (150 lb) 12/05/2018 12:32 PM CDT Height 157.5 cm (5' 2 ) 12/05/2018 12:32 PM CDT Body Mass Index 27.44 12/05/2018 12:32 PM CDT documented in this encounter Discharge Instructions * Discharge Instructions* TSERING Arauz - 12/05/2018 2:16 PM CDT Keep appointment with hand surgeon tomorrow. * Attachments The following attachments cannot be sent through Care Everywhere. * Miscarriage Discharge Instructions (Turkish) * Muscle and Bone Pain Discharge Instructions (Turkish) documented in this encounter ED Notes * Jo-Ann Estrada RN - 12/05/2018 2:33 PM CDT Discharge instructions were discussed with pt, pt verbalized understanding and denied any questions. * TSERING Arauz - 12/05/2018 2:10 PM CDT [place], [place] EMERGENCY DEPARTMENT ENCOUNTER HISTORICAL INFORMATION Primary Care Doctor: Huseyin Dangelo MD, MD Patient information was obtained primarily from the patient, nursing notes History/Exam limitations: None Provider at Bedside Date/Time Event User Comments 12/05/18 1242 Provider at Bedside Assessing Patient EMMA DONALDSON CHIEF COMPLAINT Arm Pain and Vaginal Bleeding HPI Carito Rausch is a 28-year-old female who presents multiple complaints. Pt c/o right wrist pain,right hand numbness as well as vaginal bleeding yesterday and ab cramping (now resolved). Pt had + home test earlier in the week. Pt states she cut herself on glass accidentally on Sunday and was seen at another ER and had sutures placed. Pt states she has pain at site of sutures as well as numbness of 1st, 2nd, 3rd fingers since sutures were placed. PAST MEDICAL HISTORY No past medical history on file. SURGICAL HISTORY No past surgical history on file. CURRENT MEDICATIONS No current facility-administered medications for this encounter. No current outpatient medications on file. ALLERGIES Allergies Allergen Reactions ??? Solu-Medrol [Methylprednisolone] Anaphylaxis FAMILY HISTORY No family history on file. SOCIAL HISTORY Social History Socioeconomic History ??? Marital status: Single Spouse name: Not on file ??? Number of children: Not on file ??? Years of education: Not on file ??? Highest education level: Not on file Occupational History ??? Not on file Social Needs ??? Financial resource strain: Not on file ??? Food insecurity: Worry: Not on file Inability: Not on file ??? Transportation needs: Medical: Not on file Non-medical: Not on file Tobacco Use ??? Smoking status: Not on file Substance and Sexual Activity ??? Alcohol use: Not on file ??? Drug use: Not on file ??? Sexual activity: Not on file Lifestyle ??? Physical activity: Days per week: Not on file Minutes per session: Not on file ??? Stress: Not on file Relationships ??? Social connections: Talks on phone: Not on file Gets together: Not on file Attends hoahaoism service: Not on file Active member of [...] Social History Narrative ??? Not on file REVIEW OF SYSTEMS Review of Systems Constitutional: Negative for chills and fever. Gastrointestinal: Positive for abdominal pain. Musculoskeletal: Positive for arthralgias. All other systems reviewed and negative PHYSICAL EXAM VITAL SIGNS: Filed Vitals: 12/05/18 1232 BP: (!) 146/99 Pulse: 85 Resp: 18 Temp: 97.9 ??F (36.6 ??C) TempSrc: Oral SpO2: 100% Weight: 68 kg (150 lb) Height: 5' 2 (1.575 m) Constitutional: Well developed, Well nourished, No acute distress, Non-toxic appearance. HENT: Normocephalic, Atraumatic, Bilateral external ears normal, Oropharynx moist, No oral exudates, Nose normal. Eyes: PERRL, EOMI, Conjunctiva normal, No discharge. Neck- Normal range of motion, No tenderness, Supple, No stridor. Respiratory: Normal breath sounds, No respiratory distress. Cardiovascular: Normal heart rate, Normal rhythm, no chest wall tenderness GI: Bowel sounds normal, Soft, No tenderness, No masses, No pulsatile masses. Musculoskeletal: Intact distal pulses, No edema, No tenderness, No cyanosis, No clubbing. Good range of motion in all major joints. No tenderness to palpation or major deformities noted. Back- No tenderness. Integument: sutures in place at right volar wrist with mild ecchymosis. Full ROM of fingers with full strength. Pt states she cannot feel her thumb, index or 2nd finger. <3sec cap refill. Warm, Dry, No erythema, No rash. Lymphatic: No lymphadenopathy noted. Neurologic: Alert & oriented x 3, Normal motor function, Normal sensory function, No focal deficits noted. Psychiatric: Affect normal, Judgment normal, Mood normal. Pulse Oximetry Interpretation Saturation: 100% Oxygen Delivery: room air Interpretation: normal Pertinent Labs: Results for orders placed or performed during the hospital encounter of 12/05/18 CBC W/DIFF AUTOMATED Result Value Ref Range WBC 4.6 4.5 - 11.0 x10'3/uL RBC 3.87 (L) 4.20 - 5.40 x10'6/uL HGB 11.2 (L) 12.0 - 16.0 G/DL HCT 35.5 (L) 38.0 - 48.0 % MCV 91.7 81.0 - 99.0 FL MCH 28.9 27.0 - 31.0 PG MCHC 31.5 (L) 32.0 - 36.0 G/DL RDW 17.2 (H) 11.5 - 14.5 % PLT 228 130 - 400 x10'3/uL MPV 10.4 9.3 - 12.2 FL DIFFERENTIAL TYPE AUTOMATED DIFFERENTIAL NEUTROPHILS 72.1 % LYMPHOCYTES 17.0 % MONOCYTES 8.9 % EOSINOPHILS 0.9 % BASOPHILS 0.4 % IMMATURE GRANS 0.7 % ABS. NEUTROPHILS TOTAL 3.32 1.80 - 7.70 x10'3/uL ABS. LYMPHOCYTES 0.78 (L) 1.00 - 4.80 x10'3/uL ABS. MONOCYTES 0.41 0.24 - 0.86 x10'3/uL ABS. EOSINOPHILS 0.04 0.04 - 0.36 x10'3/uL ABS. BASOPHILS 0.02 0.01 - 0.08 x10'3/uL ABS. IMMATURE GRANULOCYTES 0.03 0.00 - 0.49 x10'3/uL COMPREHENSIVE METABOLIC PANEL Result Value Ref Range GLUCOSE 98 70 - 99 MG/DL BUN 12 7 - 18 MG/DL CREATININE 0.63 0.55 - 1.02 MG/DL SODIUM 142 136 - 145 MMOL/L POTASSIUM 3.3 (L) 3.5 - 5.1 MMOL/L CHLORIDE 109 (H) 100 - 108 MMOL/L CO2 27.9 21 - 32 MMOL/L CALCIUM 8.6 8.5 - 10.1 MG/DL TOTAL BILIRUBIN 0.4 0.2 - 1.2 MG/DL TOTAL PROTEIN 7.0 6.4 - 8.2 G/DL ALBUMIN 3.6 3.4 - 5.0 G/DL AST 19 15 - 37 U/L ALT 45 14 - 55 U/L ALK PHOS 51 50 - 136 U/L ANION GAP 5.1 5 - 15 MMOL/L BUN CREATININE RATIO 19.1 6 - 26 A/G RATIO 1.1 1.0 - 2.0 RATIO eGFR Non-Afr. Amer. >90 >90 ML/MIN/1.73 M2 eGFR Afr. Amer. >90 >90 ML/MIN/1.73 M2 URINALYSIS Result Value Ref Range Specimen Type URINE CLEAN CATCH COLOR YELLOW TRANSPARENCY CLOUDY Specific [place] (U) 1.028 1.001 - 1.030 U PH 5.0 5.0 - 9.0 LEUKOCYTE ESTERASE NEGATIVE NEGATIVE NITRITES NEGATIVE NEGATIVE PROTEIN, URINE 30 (H) <30 MG/DL URINE GLUCOSE NEGATIVE NEGATIVE MG/DL U KETONES NEGATIVE NEGATIVE MG/DL UROBILINOGEN NEGATIVE NEGATIVE MG/DL Urine Bilirubin NEGATIVE NEGATIVE MG/DL BLOOD NEGATIVE NEGATIVE CULTURE & SENSITIVITY INDICATED? CULTURE IS NOT INDICATED SQUAMOUS EPITHELIALS MANY /LPF MUCUS FEW /LPF WBC/HPF 1 <6 /HPF RBC/HPF 1 <6 /HPF Quantitative HCG Result Value Ref Range HCG, QUANTITATIVE <1 MIU/ML RADIOLOGY No orders to display MEDS GIVEN IN ER: Medications - No data to display ED COURSE & MEDICAL DECISION MAKING Pertinent Labs & Imaging studies reviewed. (See chart for details) Pt's right wrist wound looks well with no sign of major swelling, or infection. Pt states she cannot feel her 1st, 2nd, 3rd fingers but she has full strength. Pt is to see a hand orthopedist tomorrowthat can see if they think EMG would be warranted. Pt's HCG is neg today so we discussed complete Ab. Pt also has appointment with OB tomorrow. Pt also mentions having intermittent chest pain for several weeks and having DVT of the leg dx at [place] but not started on blood thinners. I looked through her records and found the visit chart and US which was negative. Unclear what the confusion wasbut pt does not need any emergent studies with her chronicity of her symptoms and her recent neg tests. Previous records were reviewed ? Disposition Discussion: Diagnostic tests were reviewed and questions answered. Diagnosis, care plan and treatment options were discussed. The patient understand instructions and will follow up as directed. DATE: 12/05/2018 2:10 PM PATIENT: Carito Rausch Discharge Clinical Impressions: Right wrist pain Complete Discharge Condition: stable Discharge Disposition: Patient discharge to home with I spent time answering the patient's questions. Discharge instructions using teach back, understanding assessed and validated. Please refer to the exit business writer discharge instructions for details surrounding the discharge plan. I did reiterate with the patient that if an urgent need for immediate follow up comes up, not to hesitate to return to the ED. TSERING Arauz PA 12/05/18 1433 Cosigned by Harpal Garcia MD at 12/06/2018 7:14 AM CDT * TSERING Arauz - 12/05/2018 12:43 PM CDT [place], [place] EMERGENCY DEPARTMENT ENCOUNTER Medical Screening Examination 12/05/18 12:43 PM Chief Complaint : Arm Pain and Vaginal Bleeding HPI : Carito Rausch is a 28-year-old female hx lupus who presents with continuing arm pain, vaginal bleeding, and dizziness. Sunday pt cut her right wrist on glass and was evaluated at [facility] and given 18 stitches. Follow up appt with Dr. Bagley tomorrow. Had a + test on Sunday but yesterday passed a large blood clot and ABD camping. Follow up appt with OB on Sunday. Previous complications in the past (a stillborn and a miscarriage). States today she felt dizzy at work and felt she was going to have a syncope. Wanted to come into ED for further evaluation of wrist pain and blood levels. Vital Signs: Filed Vitals: 12/05/18 1232 BP: (!) 146/99 Pulse: 85 Resp: 18 Temp: 97.9 ??F (36.6 ??C) TempSrc: Oral SpO2: 100% Weight: 68 kg (150 lb) Height: 5' 2 (1.575 m) Physical exam: A brief physical exam was completed to facilitate/expedite patient care. Dee findings include: No acute distress. A&Ox4. Volar aspect of right wrist with 5cm incision with sutures in placed, no surround erythema. Anxious appearing. Plan: Labs were ordered to facilitate patient care. and Imaging was ordered to facilitate patient care. TSERING Arauz 12/11/182034 * Rianna Marmolejo RN - 12/05/2018 12:35 PM CDT Pt ambulatory to triage from home with multiple complaints. Pt reports that on Sunday, she cut her right wrist on glass and was seen at [facility]. Pt reports she had 18 stitches and given a referral to an ortho surgeon. Pt then reports she took a test on Sunday, had a big clot/gush of blood yesterday, and then nothing. Pt has an OB appointment scheduled for Sunday. Pt reports she has lupus and previous complications (a stillborn and a miscarriage within the last 3 years.) This RN spoke to pet food deboner who said that we could see pt in the ER. Pt is in a lot of pain andis concerned something is wrong with my wrist. It really hurts and it is swollen. RIANNA MARMOLEJO RN documented in this encounter Plan of Treatment Not on file documented as of this encounter Procedures Procedure Name Priority Date/Time Associated Diagnosis Comments URINALYSIS STAT 12/05/2018 1:20 PM CDT ECG 12-LEAD Routine 12/05/2018 1:07 PM CDT COMPREHENSIVE METABOLIC PANEL STAT 12/05/2018 1:05 PM CDT HCG QUANT (SERUM)-CHORIONIC GONADOTROPIN STAT 12/05/2018 1:05 PM CDT CBC W/DIFF AUTOMATED STAT 12/05/2018 1:05 PM CDT documented in this encounter Results * (ABNORMAL) URINALYSIS (12/05/2018 1:20 PM CDT) SPECIMEN TYPE URINE CLEAN CATCH 12/05/2018 1:[address] [facility] COLOR (U) YELLOW 12/05/2018 1:[address] [facility] TRANSPARENCY CLOUDY 12/05/2018 1:[address] [facility] SPECIFIC GRAVITY (U) 1.028 1.001 - 1.030 12/05/2018 1:[address] [facility] U PH 5.0 5.0 - 9.0 12/05/2018 1:[address] [facility] LEUKOCYTES (U) NEGATIVE NEGATIVE 12/05/2018 1:[address] [facility] NITRITES NEGATIVE NEGATIVE 12/05/2018 1:[address] [facility] PROTEIN (U) 30(H) <30 MG/DL 12/05/2018 1:[address] [facility] URINE GLUCOSE NEGATIVE NEGATIVE MG/DL 12/05/2018 1:[address] [facility] KETONES MG/DL (U) NEGATIVE NEGATIVE MG/DL 12/05/2018 1:[address] [facility] UROBILINOGEN NEGATIVE NEGATIVE MG/DL 12/05/2018 1:52 PM CDT [facility] BILIRUBIN (U) NEGATIVE NEGATIVE MG/DL 12/05/2018 1:[address] [facility] BLOOD (U) NEGATIVE NEGATIVE 12/05/2018 1:[address] [facility] CULTURE & SENSITIVITY INDICATED? CULTURE IS NOT INDICATED 12/05/2018 1:[address] [facility] SQUAMOUS EPITHELIALS MANY /LPF 12/05/2018 1:[address] [facility] MUCUS FEW /LPF 12/05/2018 1:[address] [facility] WBC/HPF 1 <6 /HPF 12/05/2018 1:[address] [facility] RBC/HPF 1 <6 /HPF 12/05/2018 1:[address] [facility] URINE SPECIMEN OBTAINED BY CLEAN CATCH PROCEDURE / Unknown 12/05/2018 1:20 PM CDT us Emma CAGLE URINE ORDERABLES Final Resu lt [facility] [address] [place] [address], * ECG 12 lead (12/05/2018 1:07 PM CDT) 12/05/2018 1:07 PM CDT Narrative [facility] - 12/05/2018 7:39 PM CDT ?[facility] ? [address] [place] ? Test Date: ?2018-12-05 Pat Name: ? CARITO JERROD ? Department: ? Room: ? 4 Gender: ? Female ? Promotions Executive Producer: ?? SK : ?1990 ? Requested By: EMMA DONALDSON Order Number: [id number] ? Reading MD: ?? Bon Scally ? Measurements Intervals ?[place] ? Rate: ? 88 ? P: ?34 TX: ? 131 ?QRS: ?17 QRSD: ? 86 ? T: ?7 QT: ? 348 ? QTc: ?422 ? Interpretive Statements SINUS RHYTHM NONSPECIFIC T-WAVE ABNORMALITY Compared to ECG 11/27/2018 15:01:09 No significant changes Preliminary EKG interpretation by ED Physician No ischemic changes Rc Greenberg CRITICAL ALERT ISSUED ON 12-05-2018 13:10:35 Procedure Note Bon Crocker MD - 12/05/[address] Test Date: 2018-12-05 Pat Name: CARITO RAUSCH Department: Room: 4 Gender: Female Promotions Executive Producer: TEO : [id number] Requested By: EMMA DONALDSON Order Number: [id number] Reading MD: Bon Crocker Measurements Intervals [place] Rate: 88 P: 34 TX: 131 QRS: 17 QRSD: 86 T: 7 QT: 348 QTc: 422 Interpretive Statements SINUS RHYTHM NONSPECIFIC T-WAVE ABNORMALITY Compared to ECG 11/27/2018 15:01:09 No significant changes Preliminary EKG interpretation by ED Physician No ischemic changes Rc Greenberg CRITICAL ALERT ISSUED ON 12-05-2018 13:10:35 Emma CAGLE ECG ORDERABLES Final Resul t Performing Organization Address City/State/[facility] Co de Phone Number [facility] * Quantitative HCG (12/05/2018 1:05 PM CDT) HCG QUANTITATIVE <1 MIU/ML 12/06/19 19 1:[address] [facility] Comment: WEEKS OF ? REFERENCE [...] 2 - 3 MONTHS ?10,000 - 100,000 12/05/2018 1:05 PM CDT us [facility]AT[facility] Final Resul t [facility] [address] [place] [address], * (ABNORMAL) COMPREHENSIVE METABOLIC PANEL (12/05/2018 1:05 PM CDT) GLUCOSE 98 70 - 99 MG/DL 12/05/2018 1:[address] [facility] BUN 12 7 - 18 MG/DL 12/05/2018 1:[address] [facility] CREATININE S/P/B 0.63 0.55 - 1.02 MG/DL 12/05/2018 1:[address] [facility] SODIUM S/P/B 142 136 - 145 MMOL/L 12/05/2018 1:[address] [facility] POTASSIUM S/P/B 3.3(L) 3.5 - 5.1 MMOL/L 12/05/2018 1:[address] [facility] CHLORIDE S/P/B 109(H) 100 - 108 MMOL/L 12/05/2018 1:[address] [facility] CO2 27.9 21 - 32 MMOL/L 12/05/2018 1:[address] [facility] CALCIUM S/P/B 8.6 8.5 - 10.1 MG/DL 12/05/2018 1:[address] [facility] BILIRUBIN TOTAL S/P/B 0.4 0.2 - 1.2 MG/DL 12/05/2018 1:[address] [facility] TOTAL PROTEIN S/P/B 7.0 6.4 - 8.2 G/DL 12/05/2018 1:[address] [facility] ALBUMIN S/P/B 3.6 3.4 - 5.0 G/DL 12/05/2018 1:[address] [facility] AST 19 15 - 37 U/L 12/05/2018 1:37 PM [facility] ALT 45 14 - 55 U/L 12/05/2018 1:[address] [facility] ALKALINE PHOSPHATASE S/P/B 51 50 - 136 U/L 12/05/2018 1:[address] [facility] ANION GAP 5.1 5 - 15 MMOL/L 12/05/2018 1:[address] [facility] BUN CREATININE RATIO 19.1 6 - 26 12/05/2018 1:[address] [facility] A/G RATIO 1.1 1.0 - 2.0 RATIO 12/05/2018 1:37 PM [facility] EGFR NON-AFR. AMER. >90 >90 ML/MIN/1.7 3 M2 12/05/2018 1:37 PM [facility] EGFR AFR. AMER. >90 >90 ML/MIN/1.7 3 M2 12/05/2018 1:[address] [facility] Comment: NOTE: eGFR is not calculated for patients <18 years of age. This is an estimated GFR (CKD EPI) and should not be used for calculating drug doses. 12/05/2018 1:05 PM CDT [facility] Final Resul t [facility] [address] [place] [address], [place] [phone] * (ABNORMAL) CBC W/DIFF AUTOMATED (12/05/2018 1:05 PM CDT) WBC 4.6 4.5 - 11.0 x10'3/uL 12/05/2018 1:[address] [facility] RBC 3.87(L) 4.20 - 5.40 x10'6/uL 12/05/2018 1:[address] [facility] HGB 11.2(L) 12.0 - 16.0 G/DL 12/05/2018 1:[address] [facility] HCT 35.5(L) 38.0 - 48.0 % 12/05/2018 1:[address] [facility] MCV 91.7 81.0 - 99.0 FL 12/05/2018 1:[address] [facility] MCH 28.9 27.0 - 31.0 PG 12/05/2018 1:[address] [facility] MCHC 31.5(L) 32.0 - 36.0 G/DL 12/05/2018 1:[address] [facility] RDW 17.2(H) 11.5 - 14.5 % 12/05/2018 1:[address] [facility] PLT 228 130 - 400 x10'3/uL 12/05/2018 1:[address] [facility] MPV 10.4 9.3 - 12.2 FL 12/05/2018 1:[address] [facility] DIFFERENTIAL TYPE AUTOMATED DIFFERENTIAL 12/05/2018 1:[address] [facility] NEUTROPHILS % 72.1 % 12/05/2018 1:[address] [facility] LYMPHOCYTES % 17.0 % 12/05/2018 1:[address] [facility] MONOCYTES % 8.9 % 12/05/2018 1:[address] [facility] EOSINOPHILS 0.9 % 12/05/2018 1:[address] [facility] BASOPHILS 0.4 % 12/05/2018 1:[address] [facility] IMMATURE GRANS % 0.7 % 12/06/19 19 1:[address] [facility] ABS. NEUTROPHILS TOTAL 3.32 1.80 - 7.70 x10'3/uL 12/05/2018 1:[address] [facility] ABS. LYMPHOCYTES 0.78(L) 1.00 - 4.80 x10'3/uL 12/05/2018 1:[address] [facility] ABS. MONOCYTES 0.41 0.24 - 0.86 x10'3/uL 12/05/2018 1:[address] [facility] ABS. EOSINOPHILS 0.04 0.04 - 0.36 x10'3/uL 12/05/2018 1:[address] [facility] ABS. BASOPHILS 0.02 0.01 - 0.08 x10'3/uL 12/05/2018 1:[address] [facility] ABS. IMMATURE GRANULOCYTES 0.03 0.00 - 0.49 x10'3/uL 12/05/2018 1:[address] [facility] 12/05/2018 1:05 PM CDT [facility] Final Resul t [facility] [address] [place] [address], documented in this encounter Visit Diagnoses Diagnosis Arm pain- Primary Pain in limb Complete (HHS/HCC) Legally unspecified , complete, without mention of complication documented in this encounter Care Teams Curriculum Developer Relationship Specialty Start Date End Date Huseyin Dangelo MD [address] [place] [id number] PCP - General FAMILY PRACTICE 11/27/18 documented as of this encounter
--- OUTSIDE RECORDS SUMMARY | 2024-02-24 19:41 | XMS_ITS | Encounter Summary ---
Author Organization [facility] - [facility] Address [address] [place] [address]. [place], [place] [id number] [place] [id number] Care Team Providers Care Knowledge Architect Name Role Phone Huseyin Dangelo MD Primary Care Provider [phone] Encounter Details Date Type Department Care Team (Late st Contact Info) Description 03/15/2020 Patient Self-Triage MYCHART DEPARTMENT [address] [place] [id number] [facility] Provider Social History Tobacco Use Types Packs/Day Years Used Date Smoking Tobacco: Never Smokeless Tobacco: Never Alcohol Use Standard Drinks/Week Comments Yes 0 (1 standard drink = 0.6 oz pur e alcohol) Comments Unknown Sex and Gender Information Value Date Recorded Sex Assigned at Not on file Legal Sex Female 2:51 PM CDT Gender Identity Not on file Sexual Orientation Not on file documented as of this encounter Plan of Treatment Not on file documented as of this encounter Visit Diagnoses Diagnosis Encounter for screening laboratory testing for COVID-19 virus- Primary documented in this encounter Care Teams Knowledge Architect Relationship Specialty Start [place] [id number] [address] PCP - General FAMILY PRACTICE 11/27/18 documented as of this encounter
--- OUTSIDE RECORDS SUMMARY | 2024-02-24 19:41 | XMS_ITS | Encounter Summary ---
Author Organization [facility] Address [address] [place] [address]. [place], [place] [id number] [place] [address] Care Team Providers Care Plastic Parts Fabricator Name Role Phone Huseyin Dangelo MD Primary Care Provider [phone] Encounter Details Date Type Department Care Team (Latest Contact Info) Description 07/28/2020 Travel Social History Tobacco Use Types Packs/Day [...] on filedocumented in this encounter Care Teams Plastic Parts Fabricator Relationship Specialty Start Date End Date Huseyin Dangelo MD [address] [place] [address] PCP - General FAMILY PRACTICE 11/27/18 documented as of this encounter
--- OUTSIDE RECORDS SUMMARY | 2024-02-24 19:41 | XMS_ITS | Encounter Summary ---
Author Organization [facility] Address [address] [place] [address]. [place] [address] [place] [address] Care Team Providers Care Abattoir Manager Name Role Phone Huseyin Dangelo MD Primary Care Provider [phone] Reason for Visit * Reason Comments (Cramping) Encounter Details Date Type Department Care Team (Late st Contact Info) Description 08/24/2020 2:27 PM CDT - 08/24/2020 5:[address] [facility] [place] [address] Bhakti Allison MD [address] [facility] [place] [facility] [address] [place] [address] (Cramping) Discharge Disposition: Home or Self Care (Routine [...] have Coronavirus / COVID-19? No / Unsure 08/24/2020 2:23 PM CDT documented as of this encounter Last Filed Vital Signs Vital Sign Reading Time Taken Comments Blood Pressure 124/73 08/24/2020 3:00 PM CDT Pulse 88 08/24/2020 3:00 PM CDT Temperature - - Respiratory Rate - - Oxygen Saturation - - Inhaled Oxygen Concentration - - Weight - - Height - - Body Mass Index - - documented in this encounter Medications at Time of Discharge aspirin EC (ASPIRIN EC) 81 MG tablet Take 81 mg by mouth daily. hydroxychloroquin e 200 MG tablet Take 400 mg by mouth daily. 07/12/2020 Multiple Vitamin (MULTIVITAMIN) capsule Take 1 capsule by mouth daily. Omeprazole Powder Take 20 mg by mouth as needed. predniSONE 5 mg tablet Take 5 mg by mouth daily. 08/09/2020 sertraline 25 MG tablet Take 25 mg by mouth daily. 08/11/2020 valACYclovir 500 MG tablet Take 500 mg by mouth 2 (two) times a day. 08/16/2020 lactulose 20 GM/30ML solution Take 30 mLs (20 g total) by mouth 2 (two) times daily for 3 days. 240 mL 08/25/2020 08/28/2020 documented as of this encounter Progress Notes * Giuseppe Oshea, - 08/24/2020 3:29 PM CDT Images from the original note were not included. LABOR TRIAGE NOTE HPI: Carito Madison is an 30-year-old y/o @ 17w2d EGA dated by patient uncertain, presented [facility] with lower abdominal pain x 3 days. Reports 3 days ago she began c/o lower abdominal cramping vs. Pressure that is worse when lying flat, improves with sitting upright; waxing/ waning; nonradiating; moderate in severity. Had associated NBNB vomiting yesterday. Denies associated VB, dysuria, vaginal discharge, itching, fever, chills. Has felt constipated most of and took 2 stool softeners 3 days ago (unsure which) resulting in small stools; no diarrhea. Also had diffuse headaches couple days ago associated with yellow spots in vision; resolved with tylenol PM. Pt takes miralax daily, colace, suppository and enema at home with minimal relief for constipation.Pt had BM two weeks ago, small hard BM yesterday, then large BM yesterday. Denies loss of fluids, vaginal bleeding, contractions, fever or chills, shortness of breath, RUQ pain, generalized edema, abnormal vaginal discharge, dysuria and malodorous or discolored urine. Too early to feel FM. complicated by placenta previa LABS: GBS unk, blood type A (+). All other labs unremarkable. Results 1st Trimester Test Value Date Time ABO/Rh A POSITIVE 07/28/20 1322 Antibody HCT 35.9 % 07/28/20 1331 HGB 12.3 G/DL 07/28/20 1331 Rubella Antibody RPR Urine Protein 10 MG/DL 07/28/20 1302 HBsAG HIV Gonorrhea Chlamydia Pap Smear 2nd Trimester Test Value Date Time HCT HGB Glucose 3rd Trimester Test Value Date Time HCT HGB RPR HIV GBS OB History Para Term AB Living 4 0 0 0 2 0 SAB TAB Ectopic Molar Multiple Live Births 2 0 0 0 0 0 # Outcome Date GA Lbr Rojas/2nd Weight Sex Delivery Anes PTL Lv 4 Current 3 SAB 2019 SPONTANEOUS 2 SAB 2017 SPONTANEOUS 1 PAST MEDICAL HISTORY: Past Medical History: Diagnosis Date ??? Herpes simplex no meds ??? Infertility, female ??? Lupus (CMS/HCC) ??? Seizures (CMS/HCC) no siezures in the past year SURGICAL HISTORY: Past Surgical History: Procedure Laterality Date ??? APPENDECTOMY 2009 ??? DILATION AND CURETTAGE 2017 ??? FOREARM/WRIST SURGERY UNLISTED ALLERGIES: Allergies Allergen Reactions ??? Escitalopram Other (see comment) and Rash Caused seizures Caused seizures Caused seizures Caused seizures Caused seizures Caused seizures Caused seizures Caused seizures Caused seizures Caused seizures Caused seizures Caused seizures ??? Penicillins Hives and Throat swelling ??? Aripiprazole Other (see comment) MEDICATIONS: Prior to Admission medications Medication Sig Start Date End Date Taking? Authorizing Provider aspirin EC (ASPIRIN EC) 81 MG tablet Take 81 mg by mouth daily. Doc Abstract hydroxychloroquine 200 MG tablet Take 400 mg by mouth daily. 07/12/20 Doc Abstract Multiple Vitamin (MULTIVITAMIN) capsule Take 1 capsule by mouth daily. Doc Abstract Omeprazole Powder Take 20 mg by mouth as needed. Doc Abstract predniSONE 5 mg tablet Take 5 mg by mouth daily. 08/09/20 Doc Abstract sertraline 25 MG tablet Take 25 mg by mouth daily. 08/11/20 Doc Abstract valACYclovir 500 MG tablet Take 500 mg by mouth 2 (two) times a day. 08/16/20 Doc Abstract SOCIAL HISTORY: Social History Tobacco Use ??? Smoking status: Never Smoker ??? Smokeless tobacco: Never Used Substance Use Topics ??? Alcohol use: Yes ??? Drug use: No FAMILY HISTORY: No family history on file. PHYSICAL EXAM: Blood pressure 124/73, pulse 88, unknown if currently . GEN: NAD, AAOx4 HEENT: PERRLA, mucous membranes moist. CV: Normal rate, regular rhythm, S1S2 no M/G/R. PULM: Non-labored respiration. Clear to auscultation bilaterally. No wheezes, rales, rhonchi. ABDOMEN: Gravid abdomen consistent with intrauterine . No guarding. No RUQ tenderness. + LUQ pain, stool burden present EXTREMITIES: No peripheral edema noted. NEURO: Normal speech. No lateralizing or focal deficits noted. bpm - 136 ASSESSMENT AND PLAN: Patient is a 30-year-old y/o , 17w2d EGA dating uncertain presented to L&D with lower abdominal pain x 3 days. GBS unknown, blood type A (+). Other labs unremarkable. #lower abdominal pain Ddx includes constipation, UTI, muscle strain, enteritis, Callaway's disease - CBC, CMP, UA, 1LR bolus declined by pt - Pt requests constipation meds and to go home - Prescribed miralax 2-3 caps per day, colace BID, lactulose BID and biscodyl PRN DISPO: Discharged from L&D Triage with instruction to make appointment with PCP on [id number] Assessment and plan discussed with attending Dr. Allison. Giuseppe Oshea DO PGY- 2 Family Medicine Cosigned by Bhakti Allison MD at 08/25/2020 2:41 PM CDT documented in this encounter Plan of Treatment Not on file documented as of this encounter Visit Diagnoses Diagnosis Left lower quadrant abdominal pain- Primary documented in this encounter Administered Medications documented in this encounter Active and Recently Administered Medications Times are shown in CDT. Scheduled Medication Order 08/22/2020 08/23/2020 08/24/2020 acetaminophen (TYLENOL) tablet 1,000 mg 1,000 mg, Oral, Once, 1 dose, On Sun08/24/20 at 1630, Maximum dose of acetaminophen is 4000 mg from all sources in 24 hours. 1630 (Canceled Entry - Provider: Automatic Discharge Provider - Comment: Automatically canceled at discontinue of medication order) lactated ringers bolus infusion 1,000 mL 1,000 mL, Intravenous, Administer over 60 Minutes, Once, 1 dose, On Sun08/24/20 at 1630, Notify provider once infusion is complete. 1630 (Canceled Entry - Provider: Automatic Discharge Provider - Comment: Automatically canceled at discontinue of medication order) PRN Medication Order 08/22/2020 08/23/2020 08/24/2020 ondansetron (ZOFRAN) injection 4 mg 4 mg, Intravenous, Every 8 hours PRN, Nausea, Vomiting, Starting on Sun08/24/20 at 1607, Until Sun08/24/20 at 1910, IV push over 2-5 minutes. ondansetron (ZOFRAN-ODT) disintegrating tablet 8 mg 8 mg, Oral, Every 8 hours PRN, Nausea, Vomiting, Starting on Sun08/24/20 at 1607, Until Sun08/24/20 at 1910 documented in this encounter Care Teams Abattoir Manager Relationship Specialty Start Date End Date Huseyin Dangelo MD [address] [place] [address] PCP - General FAMILY PRACTICE 11/27/18 documented as of this encounter
--- OUTSIDE RECORDS SUMMARY | 2024-02-24 19:41 | XMS_ITS | Encounter Summary ---
Author Organization [facility] Address [address] [place] [address]. [place], [place] [id number] [place] [address] Care Team Providers Care Adaptive Physical Education Specialist Name Role Phone Huseyin Dangelo MD Primary Care Provider [phone] Reason for Visit * Reason Comments Chest Pain Encounter Details Date Type Department Care Team (Late st Contact Info) Description 11/27/2018 2:56 PM CDT - 11/27/2018 5:22 PM CDT Emergency [facility] [place] [address] Brooke Potts, YAEL [address] [place] [id number] Chest Pain Discharge Disposition: Home or Self Care (Routine Discharge) Social History Tobacco Use Types Packs/Day Years Used Date Smoking Tobacco: Never Assessed Comments No Sex and Gender Information Value Date Recorded Sex Assigned at Not on file Legal Sex Female 2:51 PM CDT Gender Identity Not on file Sexual Orientation Not on file documented as of this encounter Last Filed Vital Signs Vital Sign Reading Time Taken Comments Blood Pressure 147/84 11/27/2018 4:14 PM CDT Pulse 103 11/27/2018 4:14 PM CDT Temperature 37.1 ??C (98.7 ??F) 11/27/2018 3:17 PM CD T Respiratory Rate 16 11/27/2018 4:14 PM CDT Oxygen Saturation 100% 11/27/2018 4:14 PM CDT Inhaled Oxygen Concentration - - Weight - - Height - - Body Mass Index - - documented in this encounter Discharge Instructions * Discharge Instructions* Brooke Potts PA-C - 11/27/2018 4:48 PM CDT [id number]-[id number] Tylenol or ibuprofen for discomfort purposes. Continue any other chronic home medications. Follow-up closely with your primary doctor and ortho assistant. Return to the emergency room immediately if you have worsening chest pain, difficulty breathing, orfurther concern. This will be for blood clot rule out purposes. * Attachments The following attachments cannot be sent through Care Everywhere. * Chest Pain That Is Not Caused by the Heart Discharge Instructions (Mongolian) documented in this encounter ED Notes * Brooke Potts PA-C - 11/27/2018 4:20 PM CDT ED NOTE Carito Rausch 1990 Chief Complaint Chief Complaint Patient presents with ??? Chest Pain History of Present Illness 28-year-old white female patient presents to the emergency room complaining of mild aching left-sided chest discomfort starting at 6:30 AM this morning. States that the pain is deep in her chest, and mild. Pain is intermittent, waxing and waning. Mild shortness of breath reported at times. Denies h emoptysis, leg pain or edema, vomiting, syncope. Reports history of lupus and kidney failure. Also reports history of antiphospholipid syndrome and has had one previous DVT in her left lower extremity years ago . Also reports history of anxiety, takes Xanax. This could be anxiety today . She doesreport [facility] being [facility] for left calf pain and similar chest discomfort/shortness of breath symptoms. States this visit was somewhere between 2 and 4 weeks ago. States she had unremarkable venous Doppler lower extremity ultrasound as well as unremarkable CTA chest. No DVT or pulmonary embolus was found. She currently does not take anticoagulant. She has not followed up with PCP. Medical History ALLERGIES: Allergies Allergen Reactions ??? Solu-Medrol [Methylprednisolone] Anaphylaxis MEDICATIONS: Prior to Admission medications Not on File PAST MEDICAL HISTORY: No past medical history on file. PAST SURGICAL HISTORY: No past surgical history on file. FAMILY HISTORY: No family history on file. SOCIAL HISTORY: Social History Tobacco Use ??? Smoking status: Not on file Substance Use Topics ??? Alcohol use: Not on file ??? Drug use: Not on file Review of Systems Review of Systems Constitutional: Negative for activity change, appetite change, fever and unexpected weight change. HENT: Negative for ear pain, sore throat and trouble swallowing. Eyes: Negative. Respiratory: Positive for shortness of breath. Negative for cough, chest tightness, wheezing and stridor. Cardiovascular: Positive for chest pain. Negative for palpitations and leg swelling. Gastrointestinal: Negative for abdominal distention, abdominal pain, constipation, diarrhea, nauseaand vomiting. Endocrine: Negative. Genitourinary: Negative for dysuria, flank pain and hematuria. Musculoskeletal: Negative for arthralgias, back pain, myalgias and neck pain. Skin: Negative for color change, rash and wound. Allergic/Immunologic: Negative for immunocompromised state. Neurological: Negative for dizziness, speech difficulty, weakness, light- headedness, numbness and headaches. Hematological: Negative for adenopathy. Psychiatric/Behavioral: Negative. Physical Exam Filed Vitals: 11/27/18 1517 11/27/18 1614 BP: 130/87 147/84 Pulse: 88 103 Resp: 20 16 Temp: 98.7 ??F (37.1 ??C) TempSrc: Oral SpO2: 98% 100% Physical Exam Constitutional: She is oriented to person, place, and time. She appears well- developed and well-nourished. No distress. Well-appearing, pleasant, cooperative. No respiratory distress noted. Nontoxic- appearing exam. No hypoxia noted HENT: Head: Normocephalic and atraumatic. Right Ear: External ear normal. Left Ear: External ear normal. Nose: Nose normal. Mouth/Throat: Oropharynx is clear and moist. No oropharyngeal exudate. Eyes: Conjunctivae and EOM are normal. Pupils are equal, round, and reactive to light. Neck: Normal range of motion. Neck supple. No tracheal deviation present. No thyromegaly present. Cardiovascular: Normal rate, regular rhythm, normal heart sounds and intact distal pulses. Exam reveals no gallop and no friction rub. No murmur heard. Pulmonary/Chest: Effort normal and breath sounds normal. No stridor. No respiratory distress. She has no wheezes. She has no rales. She exhibits no tenderness. Denies pain with inspiration during exam Abdominal: Soft. Bowel sounds are normal. She exhibits no distension and no mass. There is no tenderness. There is no rebound and no guarding. No hernia. Musculoskeletal: Normal range of motion. She exhibits no edema, tenderness or deformity. No unilateral leg edema or tenderness. No cords noted. Negative Homans sign bilaterally Lymphadenopathy: She has no cervical adenopathy. Neurological: She is alert and oriented to person, place, and time. She displays normal reflexes. No cranial nerve deficit or sensory deficit. She exhibits normal muscle tone. Coordination normal. Skin: Skin is warm and dry. Capillary refill takes less than 2 seconds. No rash noted. She is not diaphoretic. No pallor. Psychiatric: She has a normal mood and affect. Her behavior is normal. Judgment and thought contentnormal. Anxiety is noted Nursing note and vitals reviewed. Diagnostic Studies / Procedures ELECTROCARDIOGRAMS: Results for orders placed or performed during the hospital encounter of 11/27/18 ECG 12 lead Narrative [address] Test Date: 2018-11-27 Pat Name: CARITO RAUSCH Department: Room: [facility] Gender: Female Harness Tier: ABELARDO : 1990 Requested By: ZOE MOREIRA Order Number: [id number] Reading MD: Measurements Intervals [place] Rate: 86 P: 40 AR: 124 QRS: 13 QRSD: 78 T: 4 QT: 336 QTc: 402 Interpretive Statements SINUS RHYTHM NONSPECIFIC T-WAVE ABNORMALITY No previous ECG available for comparison EKG interpreted by ERP Dr. Lobo: Rate 86, sinus rhythm, no ischemic changes LABORATORY STUDIES: Results for orders placed or performed during the hospital encounter of 11/27/18 CBC W/DIFF AUTOMATED Result Value Ref Range WBC 4.0 (L) 4.5 - 11.0 x10'3/uL RBC 4.31 4.20 - 5.40 x10'6/uL HGB 11.8 (L) 12.0 - 16.0 G/DL HCT 37.7 (L) 38.0 - 48.0 % MCV 87.5 80.0 - 94.0 FL MCH 27.4 27.0 - 31.0 PG MCHC 31.3 (L) 32.0 - 36.0 G/DL RDW 16.5 (H) 11.5 - 14.5 % PLT 255 130 - 400 x10'3/uL MPV 10.5 9.3 - 12.2 FL DIFFERENTIAL TYPE MANUAL DIFFERENTIAL SEG NEUTROPHILS 91 % LYMPHOCYTES 5 % MONOCYTES 4 % ABS. NEUTROPHIL COUNT 3.64 1.80 - 7.70 x10'3/uL ABS.LYMPHOCYTES CALCULATED 0.20 (L) 1.00 - 4.80 x10'3/uL ABS. MONOCYTES CALCULATED 0.16 (L) 0.24 - 0.86 x10'3/uL RBC MORPHOLOGY RBC MORPHOLOGY APPEARS NORMAL. SLIDE REVIEWED. PLT EST. ADEQUATE COMPREHENSIVE METABOLIC PANEL Result Value Ref Range GLUCOSE 101 (H) 70 - 99 MG/DL BUN 12 7 - 18 MG/DL CREATININE 0.69 0.55 - 1.02 MG/DL SODIUM 140 136 - 145 MMOL/L POTASSIUM 3.8 3.5 - 5.1 MMOL/L CHLORIDE 108 100 - 108 MMOL/L CO2 28.0 21 - 32 MMOL/L CALCIUM 8.8 8.5 - 10.1 MG/DL TOTAL BILIRUBIN 0.3 0.2 - 1.2 MG/DL TOTAL PROTEIN 7.3 6.4 - 8.2 G/DL ALBUMIN 3.5 3.4 - 5.0 G/DL AST 26 15 - 37 U/L ALT 55 14 - 55 U/L ALK PHOS 48 (L) 50 - 136 U/L ANION GAP 4.0 (L) 5 - 15 MMOL/L BUN CREATININE RATIO 17.4 6 - 26 A/G RATIO 0.9 (L) 1.0 - 2.0 RATIO eGFR Non-Afr. Amer. >90 >90 ML/MIN/1.73 M2 eGFR Afr. Amer. >90 >90 ML/MIN/1.73 M2 TROPONIN, QUANT Result Value Ref Range TROPONIN I <0.015 <0.045 ng/mL. IMAGING STUDIES XR CHEST PA+LAT Final Result by User, [id number] (11/27 1522) EXAMINATION: Chest X-Ray 2 View EXAM DATE/TIME: 11/27/2018 3:20 PM REASON FOR EXAM: cp COMPARISON: None TECHNIQUE: PA and lateral views of the chest were obtained. FINDINGS: Heart size is within normal limits. Pulmonary vasculature is within normal limits. There is no large pleural effusion or pneumothorax. There is no focal infiltrate or consolidative change. =====IMPRESSION:===== 1. No acute cardiopulmonary findings. Course / Medical Decision Making Patient is in no acute distress or respiratory distress, vital signs are stable, afebrile, no hypoxia. Mild tachycardia noted initially at 103 bpm in triage. No chest wall tenderness. No pertinent cardiovascular or respiratory findings on physical exam. Labs unremarkable today including troponin and renal function. EKG without acute ischemic concern per ERP. Chest x-ray negative per radiology read. PERC score of 2. Mccracken heart score of 0. Due to extensive medical history and PERC score, encouraged CTA chest again. Patient declines, states that she would like to go home and follow-up with PCP. She does report recent unremarkable CTA chest via [facility] [email or web address] system, and has shown me this on her medical records via her phone, CTA yieldedno pulmonary embolus. Return precautions given, patient voices understanding. Medications aspirin chewable tablet 324 mg (not administered) Clinical Impression Non-cardiac chest pain (Primary) There are no discharge medications for this patient. Disposition: Discharge Follow-Up: [place] [id number] [place] [address] In 2 days BROOKE POTTS PA-C 11/27/2018 Brooke Potts PA-C 11/27/18 1468 Cosigned by Angela Lobo MD at 11/28/2018 12:38 PM CDT * Kim Solis RN - 11/27/2018 3:19 PM CDT Pt here with c/o left chest heaviness that radiated to left arm with nausea and sob that comes and goes and increases with deep breathing that woke her up from her sleep at 0630 this a.m. Pt rating pain 4-6/10. Pt has hx of lupus and anxiety. KIM SOLIS RN * TSERING Aldrich - 11/27/2018 3:07 PM CDT [place], [place] EMERGENCY DEPARTMENT ENCOUNTER Medical Screening Examination 11/27/18 10:00 PM Chief Complaint : Chest Pain HPI : Carito Rausch is a 28-year-old female who presents CP this morning when she woke up. Hx oflupus and kidney failure. No concern for . No LE edema. + SOB. Vital Signs: Filed Vitals: 11/27/18 1517 11/27/18 1614 BP: 130/87 147/84 Pulse: 88 103 Resp: 20 16 Temp: 98.7 ??F (37.1 ??C) TempSrc: Oral SpO2: 98% 100% Physical exam: A brief physical exam was completed to facilitate/expedite patient care. Dee findings include: RRR, no signs of resp distress Plan: Labs & Imaging was ordered to facilitate patient care. and EKG was ordered to faciliate patient care. TSERING Aldrich 11/27/18 2200 Cosigned by Angela Lobo MD at 11/28/2018 12:25 PM CDT documented in this encounter Plan of Treatment Not on file documented as of this encounter Procedures Procedure Name Priority Date/Time Associated Diagnosis Comments XR CHEST PA+LAT STAT 11/27/2018 3:20 PM CDT COMPREHENSIVE METABOLIC PANEL STAT 11/27/2018 3:07 PM CDT CBC W/DIFF AUTOMATED STAT 11/27/2018 3:07 PM CDT TROPONIN, QUANT STAT 11/27/2018 3:07 PM CDT ECG 12-LEAD STAT 11/27/2018 3:01 PM CDT documented in this encounter Results * XR CHEST PA+LAT (11/27/2018 3:20 PM CDT) Anatomical Region Laterality Modality Chest Radiographic Simin ging 11/27/2018 3:21 PM CDT Impressions 11/27/2018 3:22 PM CDT =====IMPRESSION:===== ?? 1. ??No acute cardiopulmonary findings. Narrative 11/27/2018 3:22 PM CDT EXAMINATION: Chest X-Ray 2 View EXAM DATE/TIME: 11/27/2018 3:20 PM REASON FOR EXAM: ??cp ? COMPARISON: None TECHNIQUE: PA and lateral views of the chest were obtained. FINDINGS: Heart size is within normal limits. Pulmonary vasculature is within normal limits. There is no large pleural effusion or pneumothorax. There is no focal infiltrate or consolidative change. Procedure Note Brooke Chapman MD - 11/27/2018 EXAMINATION: Chest X-Ray 2 View EXAM DATE/TIME: 11/27/2018 3:20 PM REASON FOR EXAM: cp COMPARISON: None TECHNIQUE: PA and lateral views of the chest were obtained. FINDINGS: Heart size is within normal limits. Pulmonary vasculature is within normal limits. There is no large pleural effusion orpneumothorax. There is no focal infiltrate or consolidative change. =====IMPRESSION:===== 1. No acute cardiopulmonary findings. us [facility] Final Result * TROPONIN, QUANT (11/27/2018 3:07 PM CDT) TROPONIN I <0.015 <0.045 ng/mL. 11/27/2018 3:46 PM CDT [facility] Comment: HIGH DOSES OF BIOTIN MAY INTERFERE WITH THIS TEST RESULT. CORRELATION TO CLINICAL HISTORY AND PRESENTATION RECOMMENDED. 11/27/2018 3:07 PM CDT [facility] Final Result [facility] [address] [place] [address], [place] [phone] * (ABNORMAL) COMPREHENSIVE METABOLIC PANEL (11/27/2018 3:07 PM CDT) [facility] GLUCOSE 101(H) 70 - 99 MG/DL 11/27/2018 3:46 PM CDT [facility] BUN 12 7 - 18 MG/DL 11/27/2018 3:46 PM CDT [facility] CREATININE S/P/B 0.69 0.55 - 1.02 MG/DL 11/27/2018 3:46 PM CDT [facility] SODIUM S/P/B 140 136 - 145 MMOL/L 11/27/2018 3:46 PM CDT [facility] POTASSIUM S/P/B 3.8 3.5 - 5.1 MMOL/L 11/27/2018 3:46 PM CDT [facility] CHLORIDE S/P/B 108 100 - 108 MMOL/L 11/27/2018 3:46 PM CDT [facility] CO2 28.0 21 - 32 MMOL/L 11/27/2018 3:46 PM CDT [facility] CALCIUM S/P/B 8.8 8.5 - 10.1 MG/DL 11/27/2018 3:46 PM CDT [facility] BILIRUBIN TOTAL S/P/B 0.3 0.2 - 1.2 MG/DL 11/27/2018 3:46 PM CDT [facility] TOTAL PROTEIN S/P/B 7.3 6.4 - 8.2 G/DL 11/27/2018 3:46 PM CDT [facility] ALBUMIN S/P/B 3.5 3.4 - 5.0 G/DL 11/27/2018 3:46 PM CDT [facility] AST 26 15 - 37 U/L 11/27/2018 3:46 PM CDT [facility] ALT 55 14 - 55 U/L 11/27/2018 3:46 PM CDT [facility] ALKALINE PHOSPHATASE S/P/B 48(L) 50 - 136 U/L 11/27/2018 3:46 PM CDT [facility] ANION GAP 4.0(L) 5 - 15 MMOL/L 11/27/2018 3:46 PM CDT [facility] BUN CREATININE RATIO 17.4 6 - 26 11/27/2018 3:46 PM CDT [facility] A/G RATIO 0.9(L) 1.0 - 2.0 RATIO 11/27/2018 3:46 PM CDT [facility] EGFR NON-AFR. AMER. >90 >90 ML/MIN/1.7 3 M2 11/27/2018 3:46 PM CDT [facility] EGFR AFR. AMER. >90 >90 ML/MIN/1.7 3 M2 11/27/2018 3:46 PM CDT [facility] Comment: NOTE: eGFR is not calculated for patients <18 years of age. This is an estimated GFR (CKD EPI) and should not be used for calculating drug doses. 11/27/2018 3:07 PM CDT us [facility] Final Result [facility] [address] [place] [address], [place] [phone] * (ABNORMAL) CBC W/DIFF AUTOMATED (11/27/2018 3:07 PM CDT) WBC 4.0(L) 4.5 - 11.0 x10'3/uL 11/27/2018 3:22 PM CDT [facility] RBC 4.31 4.20 - 5.40 x10'6/uL 11/27/2018 3:22 PM CDT [facility] HGB 11.8(L) 12.0 - 16.0 G/DL 11/27/2018 3:22 PM CDT [facility] HCT 37.7(L) 38.0 - 48.0 % 11/27/2018 3:22 PM CDT [facility] MCV 87.5 80.0 - 94.0 FL 11/27/2018 3:22 PM CDT [facility] MCH 27.4 27.0 - 31.0 PG 11/27/2018 3:22 PM CDT [facility] MCHC 31.3(L) 32.0 - 36.0 G/DL 11/27/2018 3:22 PM CDT [facility] RDW 16.5(H) 11.5 - 14.5 % 11/27/2018 3:22 PM CDT [facility] PLT 255 130 - 400 x10'3/uL 11/27/2018 3:22 PM CDT [facility] MPV 10.5 9.3 - 12.2 FL 11/27/2018 3:22 PM CDT [facility] DIFFERENTIAL TYPE MANUAL DIFFERENTIAL 11/27/2018 3:44 PM CDT [facility] SEG NEUTROPHILS 91 % 9 3:44 PM CDT [facility] LYMPHOCYTES 5 % 11/27/2018 3:44 PM CDT [facility] MONOCYTES 4 % 11/27/2018 3:44 PM CDT [facility] ABS. NEUTROPHILS CALCULATED 3.64 1.80 - 7.70 x10'3/uL 11/27/2018 3:44 PM CDT [facility] ABS.LYMPHOCYTES CALCULATED 0.20(L) 1.00 - 4.80 x10'3/uL 11/27/2018 3:44 PM CDT [facility] ABS. MONOCYTES CALCULATED 0.16(L) 0.24 - 0.86 x10'3/uL 11/27/2018 3:44 PM CDT [facility] RBC MORPHOLOGY RBC MORPHOLOGY APPEARS NORMAL. SLIDE REVIEWED. 11/27/2018 3:44 PM CDT [facility] PLT EST. ADEQUATE 11/27/2018 3:44 PM CDT [facility] 11/27/2018 3:07 PM CDT [facility] Final Result [facility] [address] [place] [id number], * ECG 12 lead (11/27/2018 3:01 PM CDT) 11/27/2018 3:01 PM CDT Narrative [facility] ([facility]) RAD - 11/27/2018 9:36 PM CDT ?[facility] ? [address] [place] ? Test Date: ?2018-11-27 Pat Name: ? CARITO RAUSCH ? Department: ? Room: ? EMS1 Gender: ? F ?Harness Tier: ?? ABELARDO : ?1990 ? Requested By: ZOE MOREIRA Order Number: [id number] ? Reading MD: ?? Shiyam Satwani ? Measurements Intervals ?[place] ? Rate: ? 86 ? P: ?40 AR: ? 124 ?QRS: ?13 QRSD: ? 78 ? T: ?4 QT: ? 336 ? QTc: ?402 ? Interpretive Statements SINUS RHYTHM NONSPECIFIC T-WAVE ABNORMALITY No previous ECG available for comparison Procedure Note Mac Ritter MD - 11/27/2018 [facility] [address] Test Date: 2018-11-27 Pat Name: CARITO RAUSCH Department: Room: [facility] Gender: F Harness Tier: ABELARDO : 1990 Requested By: ZOE MOREIRA Order Number: [id number] Reading MD: Mac Ritter Measurements Intervals [place] Rate: 86 P: 40 AR: 124 QRS: 13 QRSD: 78 T: 4 QT: 336 QTc: 402 Interpretive Statements SINUS RHYTHM NONSPECIFIC T-WAVE ABNORMALITY No previous ECG available for comparison us Zoe More[place] ECG ORDERABLES Final Result [facility] documented in this encounter Visit Diagnoses Diagnosis Non-cardiac chest pain- Primary Other chest pain documented in this encounter Active and Recently Administered Medications Times are shown in CDT. Scheduled Medication Order 11/25/2018 11/26/2018 11/27/2018 aspirin chewable tablet 324 mg 324 mg, Oral, Once, 1 dose, On Sun11/27/18 at 1500, If not given by EMS or taken immediately prior to arrival 1705 (Not Given - Pr ovider: Kevin Valencia RN - Reason: Patient/family declined) documented in this encounter Care Teams Adaptive Physical Education Specialist Relationship Specialty Start Date End Date Huseyin Dangelo MD [address] [place] [id number] PCP - General FAMILY PRACTICE 11/27/18 documented as of this encounter
--- OUTSIDE RECORDS SUMMARY | 2024-02-24 19:41 | XMS_ITS | Encounter Summary ---
Author Organization [facility] Address [address] [place] [address]. [place], [place] [address] [place] [address] Care Team Providers Care Production Control Expediter Name Role Phone Huseyin Dangelo MD Primary Care Provider [phone] Encounter Details Date Type Department Care Team (Latest Contact Info) Description 08/24/2020 Travel Social History Tobacco Use Types Packs/Day [...] filedocumented in this encounter Care Teams Production Control Expediter Relationship Specialty Start Date End Date Huseyin Dangelo MD [address] [place] [address] PCP - General FAMILY PRACTICE 11/27/18 documented as of this encounter
--- OUTSIDE RECORDS SUMMARY | 2024-02-24 19:41 | XMS_ITS | Encounter Summary ---
Author Organization [facility] Address [address] [place] [address]. [place], [place] [id number] [place] [id number] Care Team Providers Care Tobacco Stripping Machine Operator Name Role Phone Huseyin Dangelo MD Primary Care Provider [phone] Reason for Visit * Reason Comments Fatigue Encounter Details Date Type Department Care Team (Late st Contact Info) Description 02/14/2019 2:11 PM LEAD SIMULATION MODELING ENGINEER - 02/14/2019 3:53 PM LEAD SIMULATION MODELING ENGINEER Emergency [facility] [place] [address] Fatigue Discharge Disposition: Home or Self Care (Routine [...] Sign Reading Time Taken Comments Blood Pressure 127/91 02/14/2019 3:06 PM LEAD SIMULATION MODELING ENGINEER Pulse 88 02/14/2019 2:11 PM LEAD SIMULATION MODELING ENGINEER Temperature 36.1 ??C (97 ??F) 02/14/2019 2:11 PM LEAD SIMULATION MODELING ENGINEER Respiratory Rate 20 02/14/2019 2:11 PM LEAD SIMULATION MODELING ENGINEER Oxygen Saturation 100% 02/14/2019 3:06 PM LEAD SIMULATION MODELING ENGINEER Inhaled Oxygen Concentration - - Weight 69.7 kg (153 lb 10.6 oz) 02/14/2019 2:11 PM LEAD SIMULATION MODELING ENGINEER Height 157.5 cm (5' 2 ) 02/14/2019 2:11 PM LEAD SIMULATION MODELING ENGINEER Body Mass Index 28.1 02/14/2019 2:11 PM LEAD SIMULATION MODELING ENGINEER documented in this encounter Discharge Instructions * Discharge Instructions* TSERING Arauz - 02/14/2019 3:43 PM LEAD SIMULATION MODELING ENGINEER Drink plenty of fluids Take decongestant daily. SIMULATION MODELING ENGINEER * Attachments The following attachments cannot be sent through Care Everywhere. * Viral Syndrome Discharge Instructions (Australian) documented in this encounter ED Notes * TSERING Arauz - 02/14/2019 3:36 PM CST [place], [place] EMERGENCY DEPARTMENT ENCOUNTER HISTORICAL INFORMATION Primary Care Doctor: Huseyin Dangelo MD, MD Patient information was obtained primarily from the patient, nursing notes History/Exam limitations: None Provider at Bedside Date/Time Event User Comments 02/14/19 1413 Provider at Bedside Assessing Patient CURRY RAUSCH CHIEF COMPLAINT Fatigue HPI Carito Rausch is a 28-year-old female who presents who presents with fatigue, BL ear pain and generalized weakness x 4-5 days. Pt states multiple co-workers have sinus infections and she does c/o sinus congestion but still can breath through nose. Pt denies f/c/s. 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 PAST MEDICAL HISTORY Past Medical History: Diagnosis Date ??? Lupus (CMS/HCC) SURGICAL HISTORY Past Surgical History: Procedure Laterality Date ??? FOREARM/WRIST SURGERY UNLISTED CURRENT MEDICATIONS No current facility-administered medications for this encounter. No current outpatient medications on file. ALLERGIES Allergies Allergen Reactions ??? Solu-Medrol [Methylprednisolone] Anaphylaxis FAMILY HISTORY No family history on file. Past family history negative SOCIAL HISTORY Social History Socioeconomic History ??? [...] on file Tobacco Use ??? Smoking status: Never Smoker ??? Smokeless tobacco: Never Used Substance and Sexual Activity ??? Alcohol use: Yes ??? Drug use: No ??? Sexual activity: Not on file Lifestyle ??? Physical activity: Days per week: Not on file Minutes per session: Not on file ??? Stress: Not on file Relationships ??? Social connections: Talks on phone: Not on file Gets together: Not on file Attends adventist service: Not on file Active member of [...] Social History Narrative ??? Not on file Past social history negative REVIEW OF SYSTEMS Review of Systems Constitutional: Positive for fatigue. Neurological: Positive for weakness. All other systems reviewed and negative PHYSICAL EXAM VITAL SIGNS: Filed Vitals: 02/14/19 1411 02/14/19 1506 BP: (!) 142/91 (!) 127/91 Pulse: 88 Resp: 20 Temp: 97 ??F (36.1 ??C) TempSrc: Oral SpO2: 99% 100% Weight: 69.7 kg (153 lb 10.6 oz) Height: 5' 2 (1.575 m) Constitutional: Well [...] major deformities noted. Back- No tenderness. Integument: Warm, Dry, No erythema, No rash. Lymphatic: No lymphadenopathy noted. Neurologic: Alert & oriented x 3, Normal motor function, Normal sensory function, No focal deficits noted. Psychiatric: Affect normal, Judgment normal, Mood normal. Pulse Oximetry Interpretation Saturation: 99% Oxygen Delivery: room air Interpretation: normal DDX: URI, influenza, dehydration Pertinent Labs: Results for orders placed or performed during the hospital encounter of 02/14/19 CBC W/DIFF AUTOMATED Result Value Ref Range WBC 7.1 4.5 - 11.0 x10'3/uL RBC 4.16 (L) 4.20 - 5.40 x10'6/uL HGB 11.6 (L) 12.0 - 16.0 G/DL HCT 37.5 (L) 38.0 - 48.0 % MCV 90.1 80.0 - 94.0 FL MCH 27.9 27.0 - 31.0 PG MCHC 30.9 (L) 32.0 - 36.0 G/DL RDW 14.0 11.5 - 14.5 % PLT 277 130 - 400 x10'3/uL MPV 10.7 9.3 - 12.2 FL DIFFERENTIAL TYPE PENDING COMPREHENSIVE METABOLIC PANEL Result Value Ref Range GLUCOSE 94 70 - 99 MG/DL BUN 13 7 - 18 MG/DL CREATININE 0.64 0.55 - 1.02 MG/DL SODIUM 139 136 - 145 MMOL/L POTASSIUM 3.4 (L) 3.5 - 5.1 MMOL/L CHLORIDE 106 100 - 108 MMOL/L CO2 28.7 21 - 32 MMOL/L CALCIUM 8.8 8.5 - 10.1 MG/DL TOTAL BILIRUBIN 0.3 0.2 - 1.2 MG/DL TOTAL PROTEIN 7.4 6.4 - 8.2 G/DL ALBUMIN 3.6 3.4 - 5.0 G/DL AST 15 15 - 37 U/L ALT 31 14 - 55 U/L ALK PHOS 51 50 - 136 U/L ANION GAP 4.3 (L) 5 - 15 MMOL/L BUN CREATININE RATIO 20.4 6 - 26 A/G RATIO 0.9 (L) 1.0 - 2.0 RATIO eGFR Non-Afr. Amer. >90 >90 ML/MIN/1.73 M2 eGFR Afr. Amer. >90 >90 ML/MIN/1.73 M2 URINALYSIS Result Value Ref Range Specimen Type URINE CLEAN CATCH COLOR YELLOW TRANSPARENCY CLEAR Specific [place] (U) 1.021 1.001 - 1.030 U PH 6.0 5.0 - 9.0 LEUKOCYTE ESTERASE NEGATIVE NEGATIVE NITRITES NEGATIVE NEGATIVE PROTEIN, URINE NEGATIVE <30 MG/DL URINE GLUCOSE NEGATIVE NEGATIVE MG/DL U KETONES NEGATIVE NEGATIVE MG/DL UROBILINOGEN NEGATIVE NEGATIVE MG/DL Urine Bilirubin NEGATIVE NEGATIVE MG/DL BLOOD NEGATIVE NEGATIVE CULTURE & SENSITIVITY INDICATED? CULTURE IS NOT INDICATED RADIOLOGY XR CHEST PA+LAT Final Result by User, [id number] (02/14 6822) EXAMINATION: XR CHEST PA+LAT INDICATIONS: Cough, fatigue COMPARISON: 11/27/2018 FINDINGS: Frontal and lateral chest radiographs demonstrate normal lung expansion without consolidation, effusion, or pneumothorax. No bulky hilar adenopathy. The cardiomediastinal contours are maintained. Heart size is normal. No acute or aggressive osseous abnormality. IMPRESSION: No radiographic evidence of acute cardiopulmonary disease. Interpreted By: Jerry Ling MD, 02/14/2019 3:27 PM MEDS GIVEN IN ER: Medications sodium chloride 0.9% bolus infusion SOLN 1,000 mL (1,000 mLs Intravenous New Bag 02/14/19 5304) ED COURSE & MEDICAL DECISION MAKING Pertinent Labs & Imaging studies reviewed. (See chart for details) Discussed normal bloodwork, CXR wnl. Discussed hydration and rest. ? Disposition Discussion: Diagnostic tests were reviewed and questions answered. Diagnosis, care plan and treatment options were discussed. The patient understand instructions and will follow up as directed. DATE: 02/14/2019 3:36 PM PATIENT: Carito Rausch Discharge Clinical Impressions: Viral syndrome Discharge Condition: stable Discharge Disposition: Patient discharge to home with I spent time answering the patient's questions. Discharge instructions using teach back, understanding assessed and validated. Please refer to the exit tag writer discharge instructions for details surrounding the discharge plan. I did reiterate with the patient that if an urgent need for immediate follow up comes up, not to hesitate to return to the ED. TSERING Arauz PA 02/14/19 1547 Cosigned by Harpal Garcia MD at 02/14/2019 6:35 PM LEAD SIMULATION MODELING ENGINEER SIMULATION MODELING ENGINEER SIMULATION MODELING ENGINEER * Curry Rausch PA-C - 02/14/2019 2:31 PM CST [place], [place] EMERGENCY DEPARTMENT ENCOUNTER Medical Screening Examination 02/14/19 2:31 PM Chief Complaint : Fatigue HPI : Carito Rausch is a 28-year-old female who presents with h/o Lupus and c/o generalized fatigue and weakness with assoc SOB. Recent med changes. On daily prednisone. Denies other focal issues Vital Signs: Filed Vitals: 02/14/19 1411 BP: (!) 142/91 Pulse: 88 Resp: 20 Temp: 97 ??F (36.1 ??C) TempSrc: Oral SpO2: 99% Weight: 69.7 kg (153 lb 10.6 oz) Height: 5' 2 (1.575 m) Physical exam: A brief physical exam was completed to facilitate/expedite patient care. Pertinent PE findings: NAD. Lungs diminished bilat. Plan: Necessary labs/imaging/medications ordered to initiate pt care. Curry Rausch PA-C 02/14/19 1431 Cosigned by Harpal Garcia MD at 02/14/2019 6:35 PM LEAD SIMULATION MODELING ENGINEER SIMULATION MODELING ENGINEER SIMULATION MODELING ENGINEER * Chitra Torres RN - 02/14/2019 2:11 PM CST Patient ambulatory to triage with c/o fatigue. Patient stated that she recently stopped taking leflunamide and feels bad . Patient stated that she has lupus and she feels worse than normal. Patient reports vague complaints. CHITRA TORRES RN SIMULATION MODELING ENGINEER documented in this encounter Plan of Treatment Not on file documented as of this encounter Procedures Procedure Name Priority Date/Time Associated Diagnosis Comments XR CHEST PA+LAT STAT 02/14/2019 3:25 PM LEAD SIMULATION MODELING ENGINEER URINALYSIS STAT 02/14/2019 2:37 PM LEAD SIMULATION MODELING ENGINEER COMPREHENSIVE METABOLIC PANEL STAT 02/14/2019 2:37 PM LEAD SIMULATION MODELING ENGINEER CBC W/DIFF AUTOMATED STAT 02/14/2019 2:37 PM LEAD SIMULATION MODELING ENGINEER documented in this encounter Results * XR CHEST PA+LAT (02/14/2019 3:25 PM LEAD SIMULATION MODELING ENGINEER) Anatomical Region Laterality Modality Chest Radiographic Simin ging 02/14/2019 3:27 PM LEAD SIMULATION MODELING ENGINEER Impressions 02/14/2019 3:28 PM LEAD SIMULATION MODELING ENGINEER IMPRESSION: No radiographic evidence of acute cardiopulmonary disease. Interpreted By: Jerry Ling MD, 02/14/2019 3:27 PM Narrative 02/14/2019 3:28 PM LEAD SIMULATION MODELING ENGINEER EXAMINATION: XR CHEST PA+LAT INDICATIONS: Cough, fatigue COMPARISON: 11/27/2018 FINDINGS: Frontal and lateral chest radiographs demonstrate normal lung expansion without consolidation, effusion, or pneumothorax. No bulky hilar adenopathy. ?? The cardiomediastinal contours are maintained. Heart size is normal. No acute or aggressive osseous abnormality. Procedure Note Jerry Ling MD - 02/14/2019 EXAMINATION: XR CHEST PA+LAT INDICATIONS: Cough, fatigue COMPARISON: 11/27/2018 FINDINGS: Frontal and lateral chest radiographs demonstrate normal lung expansionwithout consolidation, effusion, or pneumothorax. No bulky hilar adenopathy. The cardiomediastinal contours are maintained. Heart size is normal. No acute or aggressive osseous abnormality. IMPRESSION: No radiographic evidence of acute cardiopulmonary disease. Interpreted By: Jerry Ling MD, 02/14/2019 3:27 PM Curry Kayla PA-C GENERAL IMAGING Final Result * URINALYSIS (02/14/2019 2:37 PM LEAD SIMULATION MODELING ENGINEER) SPECIMEN TYPE URINE CLEAN CATCH 02/14/2019 2:38 PM [facility] COLOR (U) YELLOW 02/14/2019 3:02 PM [facility] TRANSPARENCY CLEAR 02/14/2019 3:02 PM [facility] SPECIFIC GRAVITY (U) 1.021 1.001 - 1.030 02/14/2019 3:02 PM [facility] U PH 6.0 5.0 - 9.0 02/14/2019 3:02 PM [facility] LEUKOCYTES (U) NEGATIVE NEGATIVE 02/14/2019 3:02 PM [facility] NITRITES NEGATIVE NEGATIVE 02/14/2019 3:02 PM [facility] PROTEIN (U) NEGATIVE <30 MG/DL 02/14/2019 3:02 PM [facility] URINE GLUCOSE NEGATIVE NEGATIVE MG/DL 02/14/2019 3:02 PM [facility] KETONES MG/DL (U) NEGATIVE NEGATIVE MG/DL 02/14/2019 3:02 PM [facility] UROBILINOGEN NEGATIVE NEGATIVE MG/DL 02/14/2019 3:02 PM [facility] BILIRUBIN (U) NEGATIVE NEGATIVE MG/DL 02/14/2019 3:02 PM [facility] BLOOD (U) NEGATIVE NEGATIVE 02/14/2019 3:02 PM [facility] CULTURE & SENSITIVITY INDICATED? CULTURE IS NOT INDICATED 02/14/2019 3:02 PM [facility] URINE SPECIMEN OBTAINED BY CLEAN CATCH PROCEDURE / Unknown 02/14/2019 2:37 PM LEAD SIMULATION MODELING ENGINEER us Curry Rausch PA-C URINE ORDERABLES Final Result [facility] [address] [place] [address], [place] [phone] * (ABNORMAL) COMPREHENSIVE METABOLIC PANEL (02/14/2019 2:37 PM LEAD SIMULATION MODELING ENGINEER) [facility] GLUCOSE 94 70 - 99 MG/DL 02/14/2019 3:11 PM LEAD SIMULATION MODELING ENGINEER [facility] BUN 13 7 - 18 MG/DL 02/14/2019 3:11 PM [facility] CREATININE S/P/B 0.64 0.55 - 1.02 MG/DL 02/14/2019 3:11 PM [facility] SODIUM S/P/B 139 136 - 145 MMOL/L 02/14/2019 3:11 PM [facility] POTASSIUM S/P/B 3.4(L) 3.5 - 5.1 MMOL/L 02/14/2019 3:11 PM [facility] CHLORIDE S/P/B 106 100 - 108 MMOL/L 02/14/2019 3:11 PM [facility] CO2 28.7 21 - 32 MMOL/L 02/14/2019 3:11 PM [facility] CALCIUM S/P/B 8.8 8.5 - 10.1 MG/DL 02/14/2019 3:11 PM [facility] BILIRUBIN TOTAL S/P/B 0.3 0.2 - 1.2 MG/DL 02/14/2019 3:11 PM [facility] TOTAL PROTEIN S/P/B 7.4 6.4 - 8.2 G/DL 02/14/2019 3:11 PM [facility] ALBUMIN S/P/B 3.6 3.4 - 5.0 G/DL 02/14/2019 3:11 PM [facility] AST 15 15 - 37 U/L 02/14/2019 3:11 PM [facility] ALT 31 14 - 55 U/L 02/14/2019 3:11 PM [facility] ALKALINE PHOSPHATASE S/P/B 51 50 - 136 U/L 02/14/2019 3:11 PM [facility] ANION GAP 4.3(L) 5 - 15 MMOL/L 02/14/2019 3:11 PM [facility] BUN CREATININE RATIO 20.4 6 - 26 02/14/2019 3:11 PM [facility] A/G RATIO 0.9(L) 1.0 - 2.0 RATIO 02/14/2019 3:11 PM [facility] EGFR NON-AFR. AMER. >90 >90 ML/MIN/1.7 3 M2 02/14/2019 3:11 PM [facility] EGFR AFR. AMER. >90 >90 ML/MIN/1.7 3 M2 02/14/2019 3:11 PM [facility] Comment: NOTE: eGFR is not calculated for patients <18 years of age. This is an estimated GFR (CKD EPI) and should not be used for calculating drug doses. 02/14/2019 2:37 PM LEAD SIMULATION MODELING ENGINEER Curry Rausch PA-C LABORATORY Final Result [facility] [address] [place] [address], [place] [phone] * (ABNORMAL) CBC W/DIFF AUTOMATED (02/14/2019 2:37 PM LEAD SIMULATION MODELING ENGINEER) WBC 7.1 4.5 - 11.0 x10'3/uL 02/14/2019 2:50 PM LEAD SIMULATION MODELING ENGINEER [facility] RBC 4.16(L) 4.20 - 5.40 x10'6/uL 02/14/2019 2:50 PM [facility] HGB 11.6(L) 12.0 - 16.0 G/DL 02/14/2019 2:50 PM [facility] HCT 37.5(L) 38.0 - 48.0 % 02/14/2019 2:50 PM [facility] MCV 90.1 80.0 - 94.0 FL 02/14/2019 2:50 PM [facility] MCH 27.9 27.0 - 31.0 PG 02/14/2019 2:50 PM [facility] MCHC 30.9(L) 32.0 - 36.0 G/DL 02/14/2019 2:50 PM [facility] RDW 14.0 11.5 - 14.5 % 02/14/2019 2:50 PM [facility] PLT 277 130 - 400 x10'3/uL 02/14/2019 2:50 PM [facility] MPV 10.7 9.3 - 12.2 FL 02/14/2019 2:50 PM [facility] DIFFERENTIAL TYPE MANUAL DIFFERENTIAL 02/14/2019 3:46 PM [facility] SEG NEUTROPHILS 88 % 9 3:46 PM [facility] LYMPHOCYTES 6 % 02/14/2019 3:46 PM [facility] MONOCYTES 2 % 02/14/2019 3:46 PM [facility] EOSINOPHILS 1 % 02/14/2019 3:46 PM [facility] BASOPHILS 1 % 02/14/2019 3:46 PM [facility] BANDS 2 % 02/14/2019 3:46 PM LEAD SIMULATION MODELING ENGINEER [facility] ABS. NEUTROPHILS CALCULATED 6.39 1.80 - 7.70 x10'3/uL 02/14/2019 3:46 PM LEAD SIMULATION MODELING ENGINEER [facility] ABS.LYMPHOCYTES CALCULATED 0.43(L) 1.00 - 4.80 x10'3/uL 02/14/2019 3:46 PM LEAD SIMULATION MODELING ENGINEER [facility] ABS. MONOCYTES CALCULATED 0.14(L) 0.24 - 0.86 x10'3/uL 02/14/2019 3:46 PM LEAD SIMULATION MODELING ENGINEER [facility] ABS. EOSINOPHIL CALCULATED 0.07 0.04 - 0.36 x10'3/uL 02/14/2019 3:46 PM LEAD SIMULATION MODELING ENGINEER [facility] ABS. BASOPHIL CALCULATED 0.07 0.01 - 0.08 x10'3/uL 02/14/2019 3:46 PM [facility] RBC MORPHOLOGY RBC MORPHOLOGY APPEARS NORMAL. SLIDE REVIEWED. 02/14/2019 3:46 PM LEAD SIMULATION MODELING ENGINEER [facility] PLT EST. ADEQUATE 02/14/2019 3:46 PM [facility] 02/14/2019 2:37 PM LEAD SIMULATION MODELING ENGINEER Curry Rausch PA-C LABORATORY Final Result [facility] [address] [place] [address], documented in this encounter Visit Diagnoses Diagnosis Viral syndrome- Primary Unspecified viral infection, in conditions classified elsewhere and of unspecified site documented in this encounter Administered Medications Inactive Administered Medications - up to 3 most recent administrations Medication Order MAR Action Action Date Dose Rate Site sodium chloride 0.9% bolus infusion SOLN 1,000 mL 1,000 mL, Intravenous, Administer over 15 Minutes, Once, 1 dose, On Sun02/14/19 at 1445 New Bag 02/14/2019 2:50 PM LEAD SIMULATION MODELING ENGINEER 1,000 mLs documented in this encounter Active and Recently Administered Medications Times are shown in LEAD SIMULATION MODELING ENGINEER. Scheduled Medication Order 02/12/2019 02/13/2019 02/14/2019 sodium chloride 0.9% bolus infusion SOLN 1,000 mL (COMPLETED) 1,000 mL, Intravenous, Administer over 15 Minutes, Once, 1 dose, On Sun02/14/19 at 1445 1450 (New Bag - Prov ider: Dayna Minor, PRO)[id number] (Infusion Stop Time - Provider: Dayna Minor RN) documented in this encounter Care Teams Tobacco Stripping Machine Operator Relationship Specialty Start [place] [id number] [address] PCP - General FAMILY PRACTICE 11/27/18 documented as of this encounter
--- OUTSIDE RECORDS SUMMARY | 2024-02-24 19:42 | XMS_ITS | Encounter Summary ---
Author Organization [facility] Address [address] [place] [address] Phone Care Team Providers Care Staffing Administrator Name Role Phone Gayla Barker APRN, MANAGER NEONATAL Primary Care Provider Ct, [facility] Unavailable Marianela vailable Reason for Visit * Reason Comments Cough Encounter Details Date Type Department Care Team (Late st Contact Info) Description 04/25/2022 7:19 AM INDUSTRIAL ORGANIZATIONAL PSYCHOLOGIST - 04/25/2022 9:21 AM INDUSTRIAL ORGANIZATIONAL PSYCHOLOGIST Emergency [facility] Emergency [address] [place] [id number] Mohit Saldaña MD [address] [place] [address] Viral URI Discharge Disposition: Discharged to home or Selfcare Social History Tobacco Use Types Packs/Day Years Used Date Smoking Tobacco: Former Smokeless Tobacco: Never Tobacco Cessation:Counseling Given: Not Answered Comments:only when drink Alcohol Use Standard Drinks/Week Comments Yes 0 (1 standard drink = 0.6 oz pur e alcohol) Occasionally AUDIT-C Answer Date Recorded Frequency of Alcohol Consumption Monthly or less 03/25/2019 Average Number of Drinks Not on file 020 Frequency of Binge Drinking Not on file 02/27 PHQ-2 Answer Date Recorded PHQ-2 Score 0 03/25/2019 Education Answer Date Recorded What is the highest level of school you have completed or the highest degree you have received? Some college, no degree 04/19/2021 Sexually Active Control Partners Comments Yes Male Comments No Sex and Gender Information Value Date Recorded Sex Assigned at Not on file Legal Sex Female 10:27 AM INDUSTRIAL ORGANIZATIONAL PSYCHOLOGIST Gender Identity Not on file Sexual Orientation Not on file COVID-19 Exposure Response Date Recorded In the last 10 days, have yo u been in contact with someone who was confirmed or suspected to have Coronavirus/COVID-19? No / Unsure 04/25/2022 7:14 AM INDUSTRIAL ORGANIZATIONAL PSYCHOLOGIST documented as of this encounter Last Filed Vital Signs Vital Sign Reading Time Taken Comments Blood Pressure 118/76 04/25/2022 7:15 AM INDUSTRIAL ORGANIZATIONAL PSYCHOLOGIST Pulse 78 04/25/2022 7:15 AM INDUSTRIAL ORGANIZATIONAL PSYCHOLOGIST Temperature 36.9 ??C (98.5 ??F) 04/25/2022 7:15 AM CS T Respiratory Rate 18 04/25/2022 9:20 AM INDUSTRIAL ORGANIZATIONAL PSYCHOLOGIST Oxygen Saturation 99% 04/25/2022 7:15 AM INDUSTRIAL ORGANIZATIONAL PSYCHOLOGIST Inhaled Oxygen Concentration - - Weight 77.1 kg (170 lb) 04/25/2022 7:15 AM INDUSTRIAL ORGANIZATIONAL PSYCHOLOGIST Height 157.5 cm (5' 2 ) 04/25/2022 7:15 AM INDUSTRIAL ORGANIZATIONAL PSYCHOLOGIST Body Mass Index 31.09 04/25/2022 7:15 AM INDUSTRIAL ORGANIZATIONAL PSYCHOLOGIST documented in this encounter Discharge Instructions * Attachments The following attachments cannot be sent through Care Everywhere. * Upper Respiratory Infection Adult (Japanese) documented in this encounter Medications at Time of Discharge benzonatate (TESSALON) 100 MG CapsuleIndication s:Acute cough Take 1 Capsule by mouth 3 times daily as needed for Cough. 30 Capsule 04/25/2022 hydroxychloroquin e (PLAQUENIL) 200 MG Tablet Take 1 Tab by mouth daily. 90 Tab 3 05/09/2019 OMEPRAZOLE PO Take 20 mg by mouth daily. predniSONE (DELTASONE) 5 MG Tablet 01/31/2021 valACYclovir (VALTREX) 500 MG Tablet Take 500 mg by mouth daily. 02/14/2022 sertraline (ZOLOFT) 25 MG Tablet Take 1 tablet by mouth once daily 90 Tablet 02/06/2022 06/12/2022 documented as of this encounter ED Notes * Remedios Stevenson RN - 04/25/2022 9:20 AM CST Pt told Dr. Saldaña that she had to leave to go to work prior to receiving her written discharge paperwork. No distress noted and was ambulatory out with steady gait. STRIAL ORGANIZATIONAL PSYCHOLOGIST * Remedios Stevenson RN - 04/25/2022 8:00 AM CST Swabs obtained. Pt updated on status and timeframe. States she is having throat pain but has taken prednisone, benzonatate, and motrin this morning. Call light in reach. STRIAL ORGANIZATIONAL PSYCHOLOGIST * Mohit Saldaña MD - 04/25/2022 7:30 AM CST Chief Complaint Patient presents with ??? Cough 31-year-old female presenting to the emergency department cough, sore throat ear fullness, fatigue ongoing for 7-10 days, she is been seen in urgent care, her PCP's office, an outside emergency department, has received chest x-ray, treated with inhaler and spacer, she has been taking [id number] medications including NyQuil and DayQuil, promethazine with limited relief she also took some leftover cefdinir for 4 days without any relief either. She has a history of lupus is on low-dose consistent prednisone, was recommended that she go on a short burst and taper but apparently per the notes from that visit resisted that and requested antibiotics instead, she is had a chest x-ray which is unremarkable, and does not have any respiratory distress at this time. Current Facility-Administered Medications Medication Dose Route Frequency Provider Last Rate Last Admin ??? benzonatate (TESSALON) capsule 200 mg 200 mg Oral Once Mohit Saldaña MD Current Outpatient Medications Medication Sig Dispense Refill ? ? cetirizine-pseudoephedrine (ZyrTEC-D Allergy & Congestion) 5-120 MG TABLET SR 12 HR Take 1 Tablet by mouth 2 times daily for 14 days. 28 Tablet 0 ??? hydroxychloroquine (PLAQUENIL) 200 MG Tablet Take 1 Tab by mouth daily. 90 Tab 3 ??? OMEPRAZOLE PO Take 20 mg by mouth daily. ??? predniSONE (DELTASONE) 20 MG Tablet Take 2.5 Tablets by mouth daily for 3 days, THEN 2 Tablets daily for 3 days, THEN 1.5 Tablets daily for 3 days, THEN 1 Tablet daily for 3 days, THEN 0.5 Tablets daily for 3 days. 23 Tablet 0 ??? predniSONE (DELTASONE) 5 MG Tablet ??? sertraline (ZOLOFT) 25 MG Tablet Take 1 tablet by mouth once daily 90 Tablet 0 ??? valACYclovir (VALTREX) 500 MG Tablet Take 500 mg by mouth daily. Allergies Allergen Reactions ??? Amoxicillin Rash ??? Clindamycin Rash ??? Medrol [Methylprednisolone] Anaphylaxis ??? Metoclopramide Other (see Comments) Past Medical History Positives Diagnosis Date ??? Anxiety ??? Asthma ??? 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 Lupus (systemic lupus erythematosus) (HCC) Past Surgical History: Procedure Laterality Date ??? APPENDECTOMY ??? SECTION 12/30/2020 ??? WRIST SURGERY Social History Socioeconomic History ??? Marital status: Spouse name: Not on file ??? Number of children: Not on file ??? Years of education: Not on file ??? Highest education level: Some college, no degree Occupational History ??? Not on file Tobacco Use ??? Smoking status: Former ??? Smokeless tobacco: Never ??? Tobacco comments: only when drink Vaping Use ??? Vaping Use: Never used Substance and Sexual Activity ??? Alcohol use: Yes Comment: Occasionally ??? Drug use: Not Currently Types: Marijuana, Cocaine ??? Sexual activity: Yes Partners: Male Other Topics Concern ??? Not on file Social History Narrative ??? Not on file BP 118/76 Pulse 78 Temp 98.5 ??F (36.9 ??C) (Tympanic) Resp 18 Ht 5' 2 (1.575 m) Wt 170 lb (77.1 kg) LMP 04/04/2022 (Approximate) SpO2 99% BMI 31.09 kg/m?? Review of Systems Constitutional: Positive for fatigue. Negative for activity change, chills and fever. HENT: Positive for ear pain, sinus pressure and sore throat. Respiratory: Positive for cough. Negative for shortness of breath, wheezing and stridor. Gastrointestinal: Negative for abdominal pain, diarrhea and nausea. All other systems reviewed and are negative. Physical Exam Vitals and nursing note reviewed. HENT: Head: Normocephalic and atraumatic. Right Ear: There is no impacted cerumen. Left Ear: There is no impacted cerumen. Ears: Comments: Bilateral serous effusions without erythema Mouth/Throat: Mouth: Mucous membranes are moist. Comments: No significant exudate, some questionable swelling without significant erythema Eyes: Extraocular Movements: Extraocular movements intact. Conjunctiva/sclera: Conjunctivae normal. Cardiovascular: Rate and Rhythm: Normal rate and regular rhythm. Pulmonary: Effort: Pulmonary effort is normal. Abdominal: General: Abdomen is flat. Palpations: Abdomen is soft. Musculoskeletal: General: Normal range of motion. Cervical back: Normal range of motion. Skin: General: Skin is warm and dry. Capillary Refill: Capillary refill takes less than 2 seconds. Neurological: General: No focal deficit present. Mental Status: She is alert and oriented to person, place, and time. Psychiatric: Behavior: Behavior normal. Procedures Imaging Results None Labs Reviewed SARS-COV-2 BY MOLECULAR - Normal Narrative: This test has been authorized by the FDA under an Emergency Use Authorization (EUA) only. Negative results should be treated as presumptive and, if inconsistent with clinical signs and symptoms or necessary for patient management, the patient should be tested with an alternative molecularassay. Negative results do not preclude SARS-CoV-2 infection or any other respiratory pathogen. Additional information for Clinicians can be found at: https://www.fda.gov/media/422050/download Additional information for Patients can be found at: https://www.fda.gov/media/384280/download CULTURE, GRP A STREPTOCOCCUS, CULT ONLY POCT GROUP A STREP SCREEN RAPID POCT INFLUENZA A & B Medical Decision Making Patient with signs and symptoms consistent with probable viral illness, she is underlying lupus butno physical exam signs of systemic spread disorder rash or organ failure. Testing for COVID and influenza, strep throat, will reassess Amount and/or Complexity of Data Reviewed External Data Reviewed: labs and radiology. Details: Negative chest x-ray performed at urgent care, negative COVID testing done also at urgent care/PCP Labs: ordered. Decision-making details documented in ED Course. Details: Negative strep, negative flu, negative COVID-19 Reviewed: previous chart, nursing note and vitals Reviewed previous: labs and x-ray Interpretation: labs Negative COVID strep in influenza testing, signs and symptoms are consistent with viral illness, there is no evidence for acute bacterial cause patient requested Z-Maximilian, explained no indication, even if for sinus infection, duration of symptomatology is not sufficient to call acute bacterial or chronic sinusitis, Eun azithromycin be the correct medication. Continue home, previously prescribed remedies, patient has magic mouthwash at home advised to gargle and swallow for sore throat, will place on Zyrtec D to assist with any drainage issues, Tessalon p.r.n. for cough, patient has been taking promethazine and allergy medication which may be explaining fatigue. Follow-up with PCP if failing to improve. Did suggest the patient might benefit from increased steroid dose burst and taper which was prescribed and sent to the pharmacy. Clinical Impression 1. Viral URI STRIAL ORGANIZATIONAL PSYCHOLOGIST * Samantha Bazan RN - 04/25/2022 7:18 AM CST Pt to triage with c/o productive cough, nasal drainage, sore throat, ear pain and body aches x1 week. Denies N/V or fevers/chills. Does reports some slight diarrhea as well. Respirations even and non-labored. No distress noted in triage. STRIAL ORGANIZATIONAL PSYCHOLOGIST documented in this encounter Plan of Treatment Not on file documented as of this encounter Procedures Procedure Name Priority Date/Time Associated Diagnosis Comments SARS-COV-2 BY MOLECULAR STAT 04/25/2022 7:42 AM INDUSTRIAL ORGANIZATIONAL PSYCHOLOGIST POCT INFLUENZA A & B STAT 04/25/2022 7:42 AM INDUSTRIAL ORGANIZATIONAL PSYCHOLOGIST POCT GROUP A STREP SCREEN RAPID STAT 04/25/2022 7:42 AM INDUSTRIAL ORGANIZATIONAL PSYCHOLOGIST CULTURE, GRP A STREPTOCOCCUS, CULT ONLY STAT 04/25/2022 7:42 AM INDUSTRIAL ORGANIZATIONAL PSYCHOLOGIST documented in this encounter Results * Culture, Grp A Streptococcus, Cult Only (04/25/2022 7:42 AM INDUSTRIAL ORGANIZATIONAL PSYCHOLOGIST) CULTURE RESULTS NO STREP PYOGENES (GROUP A BETA HEMOLYTIC STREP) ISOLATED AFTER 2 DAYS 04/27/2022 1:39 PM INDUSTRIAL ORGANIZATIONAL PSYCHOLOGIST [facility] Culture SPECIMEN FROM THROAT / Unknown Non-Phlebotomy Collection / Unknown 04/25/2022 7:42 AM INDUSTRIAL ORGANIZATIONAL PSYCHOLOGIST 04/25/2022 8:50 AM INDUSTRIAL ORGANIZATIONAL PSYCHOLOGIST us Rk Russell DO MICROBIOLOGY - GENERAL ORDERABLES Final Result [facility] [address] [place] [address], * SARS-COV-2 BY MOLECULAR (04/25/2022 7:42 AM INDUSTRIAL ORGANIZATIONAL PSYCHOLOGIST) SARSCOV2 NOT DETECTED (Referenc e Range for this test is Not Detected) [facility] ID NOW 04/25/2022 8:17 AM INDUSTRIAL ORGANIZATIONAL PSYCHOLOGIST [facility] Comment:This test was perfor med by a MOLECULAR, NON-PCR method Other NASAL STRUCTURE / Unknown Non-Phlebotomy Collection / Unknown 04/25/2022 7:42 AM INDUSTRIAL ORGANIZATIONAL PSYCHOLOGIST 04/25/2022 8:03 AM INDUSTRIAL ORGANIZATIONAL PSYCHOLOGIST Narrative [facility] - 04/25/2022 8:17 AM INDUSTRIAL ORGANIZATIONAL PSYCHOLOGIST This test has been authorized by the FDA under an Emergency Use Authorization (EUA) only. Negative results should be treated as presumptive and, if inconsistent with clinical signs and symptoms or necessary for patient management, the patient should be tested with an alternative molecular assay. Negative results do not preclude SARS-CoV-2 infection or any other respiratory pathogen. Additional information for Clinicians can be found at: https://www.fda.gov/media/013844/download Additional information for Patients can be found at: https://www.fda.gov/media/955957/download us Mohit Saldaña MD MICROBIOLOGY - GENERAL ORDERABLES Final Result [facility] [address] [place] [address] * POCT Influenza A & B (04/25/2022 7:42 AM INDUSTRIAL ORGANIZATIONAL PSYCHOLOGIST) POC INFLU A Presumptive negative Group A Presumptive negative Group A, Invalid POC INFLU B Presumptive negative Group B Presumptive negative Group B, Invalid POC INFLUENZA CONTROL Pencils [place] 04/25/2022 7:42 AM INDUSTRIAL ORGANIZATIONAL PSYCHOLOGIST Mohit Saldaña MD POINT OF CARE TESTING (MANUAL) Final Result * POCT Group A Strep Screen Rapid (04/25/2022 7:42 AM INDUSTRIAL ORGANIZATIONAL PSYCHOLOGIST) POC STREP SCRN Presumptive negative Invalid, Presumptive negative POC STREP SCREEN CONTROL Pencils [place] 04/25/2022 7:42 AM INDUSTRIAL ORGANIZATIONAL PSYCHOLOGIST Mohit Saldaña MD POINT OF CARE TESTING (MANUAL) Final Result documented in this encounter Visit Diagnoses Diagnosis Viral URI- Primary Acute upper respiratory infections of unspecified site documented in this encounter Active and Recently Administered Medications Times are shown in INDUSTRIAL ORGANIZATIONAL PSYCHOLOGIST. Scheduled Medication Order 04/23/2022 04/24/2022 04/25/2022 benzonatate (TESSALON) capsule 200 mg 200 mg, Oral, Once, 1 dose, On Sun04/25/22 at 0800, Swallow capsule whole (do not break, chew, dissolve, cut, or crush). If capsules are chewed or dissolved in the mouth, oral mucosa anesthesia may occur and could lead to choking. If numbness or tingling of the tongue, mouth, throat, or face occurs, refrain from oral ingestion of food or liquid until numbness has resolved. 0800 (Not Given - Pr ovider: Remedios Stevenson RN - Reason: Patient/family refused) documented in this encounter Additional Health Concerns Infection Onset Date Last Indicated Resolved Time COVID - 19 04/25/2022 04/25/2022 05/05/2022 12:1 6 AM INDUSTRIAL ORGANIZATIONAL PSYCHOLOGIST Assessment Noted Time PHQ-9 Depression Total Score: 0 01/28/20 20 10:00 AM INDUSTRIAL ORGANIZATIONAL PSYCHOLOGIST documented as of this encounter Care Teams Staffing Administrator Relationship Specialty Start Date End Date Gayla Barker, MILK PROCESSING WORKER, MANAGER NEONATAL [address] [place] [address] PCP - General Advanced Practice Nurse 03/25/19 Ct, [facility] [place] [employer] 09/03/19 documented as of this encounter
--- OUTSIDE RECORDS SUMMARY | 2024-02-24 19:42 | XMS_ITS | Encounter Summary ---
Author Organization [employer] Care Team Providers Care Cryptologic Supervisor Name Role Phone Gayla Barker RETAIL SERVICES PROFESSIONAL, HISTOLOGIC AIDE Primary Care Provider Ct, [facility] Unavailable Marianela vailable Encounter Details Date Type Department Care Team (Latest Contact Info) Description 03/06/2022 Travel Social History Tobacco Use Types Packs/Day Years Used Date Smoking Tobacco: Former Smokeless Tobacco: Never Comments:only when drink Alcohol Use Standard Drinks/Week [...] on file Legal Sex Female 10:27 AM CARE TRANSITIONS MANAGER Gender Identity Not on file Sexual Orientation Not on file COVID-19 Exposure Response Date Recorded In the last 10 days, have yo u been in contact with someone who was confirmed or suspected to have Coronavirus/COVID-19? No / Unsure 03/06/2022 4:17 PM CARE TRANSITIONS MANAGER documented as of this encounter Plan of Treatment Not on file documented as of this encounter Visit Diagnoses Not on filedocumented in this encounter Additional Health Concerns Assessment Noted Time PHQ-9 Depression Total Score: 0 03/25/19 20 10:00 AM CARE TRANSITIONS MANAGER documented as of this encounter Care Teams Cryptologic Supervisor Relationship Specialty Start Date End Date Gayla Barker, RETAIL SERVICES PROFESSIONAL, HISTOLOGIC AIDE [address] [place] [address] PCP - General Advanced Practice Nurse 03/25/19 Ct, [facility] [place] [employer] 09/03/19 documented as of this encounter
--- OUTSIDE RECORDS SUMMARY | 2024-02-24 19:42 | XMS_ITS | Encounter Summary ---
Author Organization [facility] Address [address] [facility] 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 Role Phone Ct, Acute Covid At Home Care Unavailable Marianela dagoble Brian Mon MD Primary Care Provider [phone] Reason for Visit * Reason Comments General Illness Encounter Details Date Type Department Care Team ([facility] st Contact Info) Description 10/17/2023 11:41 AM CDT - 10/17/2023 1:11 PM CDT Emergency [facility] Emergency [address] [place] [id number] Gayla Jimenez, PAC [address] [place] [address] Fever Discharge Disposition: Discharged to home or Selfcare [...] on file Legal Sex Female 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 Gender Identity Not on file Sexual Orientation Not on file documented as of this encounter Last Filed Vital Signs Vital Sign Reading Time Taken Comments Blood Pressure 120/86 10/17/2023 11:31 AM CDT Pulse 74 10/17/2023 11:31 AM CDT Temperature 36.7 ??C (98 ??F) 10/17/2023 11:31 AM CDT Respiratory Rate 18 10/17/2023 11:31 AM CDT Oxygen Saturation 100% 10/17/2023 11:31 AM CDT Inhaled Oxygen Concentration - - Weight 79.4 kg (175 lb) 10/17/2023 11:31 AM CDT Height 154.9 cm (5' 1 ) 10/17/2023 11:31 AM CDT Body Mass Index 33.07 10/17/2023 11:31 AM CDT documented in this encounter Discharge Instructions * Discharge Instructions* Gayla Jimenez PAC - 10/17/2023 1:06 PM CDT Please push clear fluids and advance to a bland diet as tolerated. Seek reevaluation if your symptoms change or worsen. documented in this encounter Medications at Time of Discharge benzonatate (TESSALON) 100 MG CapsuleIndication s:Acute cough Take 1 Capsule by mouth 3 times daily as needed for Cough. 30 Capsule 04/25/2022 hydroxychloroquin e (PLAQUENIL) 200 MG Tablet Take 1 Tab by mouth daily. 90 Tab 3 05/09/2019 OMEPRAZOLE PO Take 20 mg by mouth daily. ondansetron (ZOFRAN-ODT) 4 MG TABLET DISPERSIBLE Take 1 Tablet by mouth every 8 hours as needed for Nausea - 1st line. 10 Tablet 10/17/2023 predniSONE (DELTASONE) 5 MG Tablet 01/31/2021 Semaglutide (OZEMPIC, 0.25 OR 0.5 MG/DOSE, SC) by Subcutaneous route. sertraline (ZOLOFT) 25 MG Tablet Take 1 tablet by mouth once daily 90 Tablet 06/12/2022 tobramycin (Tobrex) 0.3 % Solution Place 1-2 Drops in right eye every 4 hours. 5 mL 06/08/2022 valACYclovir (VALTREX) 500 MG Tablet Take 500 mg by mouth daily. 02/14/2022 documented as of this encounter ED Notes * Mandy Ag RN - 10/17/2023 1:07 PM CDT Patient discharged. Discharge instructions and patient educational material reviewed with patient; questions and concerns addressed; patient verbalizes understanding, using teach back. Patient was given 1 prescriptions. Pt left ambulatory with a steady gait. * Mandy Ag RN - 10/17/2023 1:06 PM CDT Pt requesting DC paper work before return of swabs. She reports that she will look them up online on [facility] but knows tht viruses wont get her any further meds. * Mandy Ag RN - 10/17/2023 12:29 PM CDT Carito comes to the ER with complaints of nausea, vomiting, and feeling fatigued for the last 3 days. Pt reports that she had a breast reduction on 09/26 and she just wants to make sure she has no infections. There is no drainage noted but slight pinkness to the area. Pt reports feeling flushed andchills. Pt denies any drainage from the sites. Pt reports taking PO prednisone for lupus at home. * Gayla Jimenez PAC - 10/17/2023 12:21 PM CDT Chief Complaint Patient presents with General Illness HPI Carito Madison is a 33 y.o. female who presents from home due to a fever which started threedays ago. She states she has also had some vomiting and diarrhea. She states she had a breast reduction in an outpatient facility in [facility] on 09/27/23. She took a course of doxycycline after surgery. She states that she has followed up with the surgeon and reports that her incisions have healedwell. She states she is however experiencing bilateral breast pain and a burning sensation in her breasts which the surgeon is aware of. She denies any skin discoloration or drainage. She denies any cough, sob, abdominal pain, dysuria, sore throat, ear pain. She states that her family has recently had illnesses. PMH includes asthma, CKD, lupus, anxiety. Patient is a smoker. No current facility-administered medications for this encounter. Current Outpatient Medications Medication Sig Dispense Refill benzonatate (TESSALON) 100 MG Capsule Take 1 Capsule by mouth 3 times daily as needed for Cough. (Patient not taking: Reported on 05/15/2022) 30 Capsule 0 hydroxychloroquine (PLAQUENIL) 200 MG Tablet Take 1 Tab by mouth daily. 90 Tab 3 OMEPRAZOLE PO Take 20 mg by mouth daily. ondansetron (ZOFRAN-ODT) 4 MG TABLET DISPERSIBLE Take 1 Tablet by mouth every 8 hours as needed forNausea - 1st line. 10 Tablet 0 predniSONE (DELTASONE) 5 MG Tablet Semaglutide (OZEMPIC, 0.25 OR 0.5 MG/DOSE, SC) by Subcutaneous route. sertraline (ZOLOFT) 25 MG Tablet Take 1 tablet by mouth once daily 90 Tablet 0 tobramycin (Tobrex) 0.3 % Solution Place 1-2 Drops in right eye every 4 hours. 5 mL 0 valACYclovir (VALTREX) 500 MG Tablet Take 500 mg by mouth daily. 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 Lupus (systemic lupus erythematosus) (HCC) Past Surgical History: Procedure Laterality Date APPENDECTOMY SECTION 12/30/2020 WRIST SURGERY Social History Socioeconomic History Marital status: Spouse name: Not on file Number of children: Not on file Years of education: Not on file Highest education level: Some college, no degree Occupational History Not on file Tobacco Use Smoking status: Former Smokeless tobacco: Never Tobacco comments: only when drink Vaping Use Vaping status: Never Used Substance and Sexual Activity Alcohol use: Yes Comment: Occasionally Drug use: Not Currently Types: Marijuana, Cocaine Sexual activity: Yes Partners: Male Other Topics Concern Not on file Social History Narrative Not on file Social Determinants of Health Financial Resource Needs: Low Risk (01/01/2021) Received from [facility] Overall Financial Resource Strain (CARDIA) Difficulty of Paying Living Expenses: Not hard at all Food Insecurity Needs: No Food Insecurity (01/01/2021) Received from [facility] Hunger Vital Sign Worried About Running Out of Food in the Last Year: Never true Ran Out of Food in the Last Year: Never true Transportation Needs: No Transportation Needs (01/01/2021) Received from [facility] PRAPARE - Transportation Lack of Transportation (Medical): No Lack of Transportation (Non-Medical): No Physical Activity: Not on file Stress: Not on file Social Integration: Unknown (01/01/2021) Received from [facility] Social Connection and Isolation Panel [NHANES] Frequency of Communication with Friends and Family: More than three times a week Frequency of Social Gatherings with Friends and Family: Not on file Attends Congregation Services: Not on file Active Member of Clubs or Organizations: Not on file Attends Club or Organization Meetings: Not on file Marital Status: Intimate Partner Violence: Not on file Housing Stability: Not on file BP 120/86 Pulse 74 Temp 98 ??F (36.7 ??C) (Tympanic) Resp 18 Ht 5' 1 (1.549 m) Wt 175 lb(79.4 kg) LMP 04/04/2022 (Approximate) SpO2 100% BMI 33.07 kg/m?? Review of Systems Constitutional: Positive for fever. Negative for chills. HENT: Negative for congestion, ear pain, rhinorrhea and sore throat. Eyes: Negative for discharge. Respiratory: Negative for cough, chest tightness, shortness of breath and wheezing. Cardiovascular: Negative for chest pain and palpitations. Gastrointestinal: Positive for diarrhea, nausea and vomiting. Negative for abdominal pain. Genitourinary: Negative for difficulty urinating and menstrual problem. Musculoskeletal: Negative for arthralgias and myalgias. Skin: Negative for rash and wound. Neurological: Negative for dizziness, syncope and headaches. All other systems reviewed and are negative. Physical Exam Vitals and nursing note reviewed. Constitutional: General: She is not in acute distress. Appearance: She is well-developed. She is not diaphoretic. HENT: Head: Normocephalic and atraumatic. Right Ear: External ear normal. Left Ear: External ear normal. Eyes: Conjunctiva/sclera: Conjunctivae normal. Pupils: Pupils are equal, round, and reactive to light. Neck: Trachea: No tracheal deviation. Cardiovascular: Rate and Rhythm: Normal rate and regular rhythm. Heart sounds: Normal heart sounds. No murmur heard. Pulmonary: Effort: Pulmonary effort is normal. No respiratory distress. Breath sounds: Normal breath sounds. No wheezing or rales. Abdominal: General: Bowel sounds are normal. There is no distension. Palpations: Abdomen is soft. Tenderness: There is no abdominal tenderness. There is no guarding or rebound. Musculoskeletal: General: Normal range of motion. Cervical back: Normal range of motion. Skin: General: Skin is warm and dry. Comments: Breast reduction incisions well healed. No breast erythema, masses, or warmth Neurological: Mental Status: She is alert and oriented to person, place, and time. Cranial Nerves: No cranial nerve deficit. Labs Reviewed CMP (COMPREHENSIVE METABOLIC PANEL) - Abnormal; Notable for the following components: Result Value CHLORIDE 108 (*) GLUCOSE 103 (*) All other components within normal limits CBC WITH AUTO DIFFERENTIAL - Abnormal; Notable for the following components: HEMOGLOBIN (HGB) 9.7 (*) HEMATOCRIT (HCT) 32.9 (*) MCV 74.9 (*) MCH 22.1 (*) MCHC 29.5 (*) RDW 20.4 (*) MPV 9.1 (*) ABSOLUTE LYMPHOCYTES 1.22 (*) All other components within normal limits Narrative: Anisocytosis Hypochromia Microcytosis RSV,SARS-COV-2,INFLUENZA A&B BY PCR COMPLETE BLOOD COUNT (CBC) WITH DIFF Narrative: The following orders were created for panel order CBC with Diff [id number]. Procedure Abnormality Status --------- ------ CBC with Auto Differential[[id number]] Abnormal Final result Please view results for these tests on the individual orders. URINALYSIS REFLEX IF INDICATED BY ABNORMAL RESULTS POCT URINE HCG () XR CHEST 2 VIEWS Final Result IMPRESSION: No acute cardiopulmonary abnormality. CBC with Diff [id number] Final Result Comprehensive Metabolic Panel (Cmp) [id number] Final Result URINALYSIS REFLEX IF INDICATED BY ABNORMAL RESULTS (Results Pending) Procedures Recent Results (from the past 24 hour(s)) Comprehensive Metabolic Panel (Cmp) [id number] Result Value Ref Range SODIUM 141 136 - 145 mmol/L POTASSIUM 3.6 3.5 - 5.1 mmol/L CHLORIDE 108 (H) 98 - 107 mmol/L CO2, VENOUS 26 22 - 30 mmol/L ANION GAP 10.6 <18.0 mmol/L GLUCOSE 103 (H) 70 - 99 mg/dL BUN 10 5 - 18 mg/dL CREATININE, BLOOD 0.72 0.60 - 1.00 mg/dL BUN/CREATININE RATIO 14 12 - 20 ratio TOTAL PROTEIN 7.1 6.3 - 8.2 g/dL ALBUMIN 4.4 3.5 - 5.0 g/dL A/G RATIO 1.6 1.0 - 2.2 CALCIUM 9.3 8.7 - 10.5 mg/dL T BILI 0.5 0.2 - 1.2 mg/dL SGOT (AST) 14 5 - 34 U/L SGPT (ALT) 11 0 - 55 U/L ALKALINE PHOSPHATASE 40 40 - 150 U/L GFR, ESTIMATED >60 >=60 GFR, EST. >60 >=60 GFR, EST. NONAFRICAN >60 >=60 CBC with Auto Differential Result Value Ref Range WBC 5.51 4.00 - 12.00 10(3)/mcL RBC 4.39 3.80 - 5.30 10(6)/mcL HEMOGLOBIN (HGB) 9.7 (L) 12.0 - 15.8 g/dL HEMATOCRIT (HCT) 32.9 (L) 36.0 - 47.0 % MCV 74.9 (L) 82.0 - 96.0 fL MCH 22.1 (L) 26.0 - 34.0 pg MCHC 29.5 (L) 31.0 - 36.0 g/dL PLATELET COUNT 267 140 - 440 10(3)/mcL RDW 20.4 (H) 11.8 - 15.5 % MPV 9.1 (L) 9.7 - 12.4 fL NEUTROPHILS 68.8 47.0 - 73.0 % LYMPHOCYTES 22.1 18.0 - 42.0 % MONOCYTES 6.9 4.0 - 12.0 % EOSINOPHILS 1.5 0.0 - 5.0 % BASOPHILS 0.7 0.0 - 1.0 % ABSOLUTE NEUTROPHILS 3.79 1.60 - 7.70 10(3)/mcL ABSOLUTE LYMPHOCYTES 1.22 (L) 1.30 - 3.20 10(3)/mcL ABSOLUTE MONOCYTES 0.38 0.20 - 1.00 10(3)/mcL ABSOLUTE EOSINOPHIL 0.08 0.00 - 0.40 10(3)/mcL ABSOLUTE BASOPHILS 0.04 0.00 - 0.10 10(3)/mcL NRBC PER 100 WBC 0 RESULTS ARE CONSISTENT WITH PERIPHERAL SMEAR REVIEW Yes RBC MORPHOLOGY CONSISTENT WITH INDICES Yes ELLIPTOCYTES Present OVALOCYTES Present POCT Urine HCG () Result Value Ref Range POC URINE Negative POC URINE CONTROL [employer] [place] [facility] Results XR CHEST 2 VIEWS (Final result) Result time 10/17/23 12:38:14 Final result by Andrey Prather MD (10/17/23 12:38:14) Impression: IMPRESSION: No acute cardiopulmonary abnormality. Narrative: EXAM DESCRIPTION: XR CHEST 2 VIEWS REASON FOR STUDY: intermittent fever x 1 week. Hx of breast reduction x 3 weeks ago. Denies chest complaints at this time. TECHNIQUE: Frontal and lateral radiographic views of the chest acquired. COMPARISON: 11/18/2021 FINDINGS: LUNGS/PLEURA: No focal consolidation or pneumothorax. No pleural effusion. HEART/MEDIASTINUM: Heart size is normal. Normal mediastinal and hilar contours. HARDWARE/LINES/TUBES: None. BONES: No acute findings. OTHER: No other significant finding. THIS IS AN ELECTRONICALLY VERIFIED FINAL REPORT 10/17/2023 12:35 PM - Electronically signed by Andrey Prather M.D. KN: FAYE Report ID: [id number] Reading Location: [id number] Medical Decision Making Clinical Impression 1. Fever 2. Vomiting and diarrhea Disposition: Discharge Patient's UA and RSV/flu/covid swab was pending and patient requested discharge. I will follow results. Her symptoms are likely viral. Encouraged patient to push fluids, rest, take antipyretics if needed, and return for reevaluation if sx change or worsen. Patient expressed understanding and agreement to the tx plan. Cosigned by Rk Russell DO at 10/17/2023 5:49 PM CDT * Tisha Dumont RN - 10/17/2023 11:32 AM CDT Pt arrives to triage stating that her surgeon would like to receive a covid/flu/rsv swab and baseline blood work to rule out infection. Pt recently had breast reduction surgery and has had no complications. Over the past week pt has developed fever of 101 and chills. Pt here to rule out underlying i nfection. documented in this encounter Miscellaneous Notes * PatientPass Patient Instructions - Gayla Jimenez PAC - 10/17/2023 1:06 PM CDT Images from the original note were not included. Patient Education Table of Contents Nausea and Vomiting, Adult To view videos and all your education online visit, [email or web address] or scan this QR code with your smartphone. Access to this content will in one year. Nausea and Vomiting, Adult Nausea is the feeling that you have an upset stomach or that you are about to vomit. As nausea getsworse, it can lead to vomiting. Vomiting is when stomach contents forcefully come out of your mouthas a result of nausea. Vomiting can make you feel weak and cause you to become dehydrated. Dehydration can make you feel tired and thirsty, cause you to have a dry mouth, and decrease how often you urinate. Older adults and people with other diseases or a weak disease-fighting system (immune system) are at higher risk for dehydration. It is important to treat your nausea and vomiting as told by your health care provider. Follow these instructions at home: Watch your symptoms for any changes. Tell your health care provider about them. Eating and drinking Take an oral rehydration solution (ORS). This is a drink that is sold at pharmacies and retail stores. Drink clear fluids slowly and in small amounts as you are able. Clear fluids include water, ice chips, low-calorie sports drinks, and fruit juice that has water added (diluted fruit juice). Eat bland, uuvm-ne-jthzcy foods in small amounts as you are able. These foods include bananas, applesauce, rice, lean meats, toast, and crackers. Avoid fluids that contain a lot of sugar or caffeine, such as energy drinks, sports drinks, and soda. Avoid alcohol. Avoid spicy or fatty foods. General instructions Take gxlz-ebp-ubshfwb and prescription medicines only as told by your health care provider. Drink enough fluid to keep your urine pale yellow. Wash your hands often using soap and water for at least 20 seconds. If soap and water are not available, use hand lending activities supervisor. Make sure that everyone in your household washes their hands well and often. Rest at home while you recover. Watch your condition for any changes. Take slow and deep breaths when you feel nauseous. Keep all follow-up visits. This is important. Contact a health care provider if: Your symptoms get worse. You have new symptoms. You have a fever. You cannot drink fluids without vomiting. Your nausea does not go away after 2 days. You feel light-headed or dizzy. You have a headache. You have muscle cramps. You have a rash. You have pain while urinating. Get help right away if: You have pain in your chest, neck, arm, or jaw. You feel extremely weak or you faint. You have persistent vomiting. You have vomit that is bright red or looks like black coffee grounds. You have bloody or black stools (feces) or stools that look like tar. You have a severe headache, a stiff neck, or both. You have severe pain, cramping, or bloating in your abdomen. You have difficulty breathing, or you are breathing very quickly. Your heart is beating very quickly. Your skin feels cold and clammy. You feel confused. You have signs of dehydration, such as: ? Dark urine, very little urine, or no urine. ? Cracked lips. ? Dry mouth. ? Sunken eyes. ? Sleepiness. ? Weakness. These symptoms may be an emergency. Get help right away. Call 911. Do not wait to see if the symptoms will go away. Do not drive yourself to the hospital. Summary Nausea is the feeling that you have an upset stomach or that you are about to vomit. As nausea getsworse, it can lead to vomiting. Vomiting can make you feel weak and cause you to become dehydrated. Follow instructions from your health care provider about eating and drinking to prevent dehydration. Take nefh-mdh-gdnpmtt and prescription medicines only as told by your health care provider. Contact your health care provider if your symptoms get worse, or you have new symptoms. Keep all follow-up visits. This is important. This information is not intended to replace advice given to you by your health care provider. Make sure you discuss any questions you have with your health care provider. Document Released: 2006-02-12 Document Updated: 2021-08-19 Document Reviewed: 2021-08-19 [employer] Patient Education ? 2023 Image Socket. documented in this encounter Plan of Treatment Not on file documented as of this encounter Procedures Procedure Name Priority Date/Time Associated Diagnosis Comments XR CHEST 2 VIEWS STAT 10/17/2023 12:3 3 PM CDT POCT URINE HCG () STAT 10/17/2023 12:22 PM CDT URINALYSIS REFLEX IF INDICATED BY ABNORMAL RESULTS STAT 10/17/2023 12:18 PM CDT RSV,SARS-COV-2,INFLUE NZA A&B BY PCR STAT 10/17/2023 11:32 AM CDT CBC WITH AUTO DIFFERENTIAL STAT 10/17/2023 11:32 AM CDT CMP (COMPREHENSIVE METABOLIC PANEL) STAT 10/17/2023 11:32 AM CDT COMPLETE BLOOD COUNT (CBC) WITH DIFF STAT 10/17/2023 11:32 AM CDT documented in this encounter Results * XR CHEST 2 VIEWS (10/17/2023 12:33 PM CDT) Anatomical Region Laterality Modality Chest N/A Digital Radiogra phy 10/17/2023 12:3 5 PM CDT Impressions 10/17/2023 12:38 PM CDT IMPRESSION: ?? No acute cardiopulmonary abnormality. Narrative 10/17/2023 12:38 PM CDT EXAM DESCRIPTION: ?? XR CHEST 2 VIEWS REASON FOR STUDY: ?? intermittent fever x 1 week. Hx of breast reduction x 3 weeks ago. Denies chest complaints at this time. ?? TECHNIQUE: ?? Frontal ??and lateral radiographic views of the chest acquired. COMPARISON: ?? 11/18/2021 FINDINGS: LUNGS/PLEURA: ?? No focal consolidation or pneumothorax. No pleural effusion. HEART/MEDIASTINUM: ?? Heart size is normal. Normal mediastinal and hilar contours. HARDWARE/LINES/TUBES: ?? None. BONES: ?? No acute findings. OTHER: ?? No other significant finding. THIS IS AN ELECTRONICALLY VERIFIED FINAL REPORT 10/17/2023 12:35 PM - Electronically signed by ??Andrey MCKINNEY: FAYE D: ??10/17/2023 12:35 PM T: ??10/17/2023 12:35 PM Report ID: [id number] Reading Location: ??[id number] Procedure Note Andrey Prather MD - 10/17/2023 EXAM DESCRIPTION: XR CHEST 2 VIEWS REASON FOR STUDY: intermittent fever x 1 week. Hx of breast reduction x 3 weeks ago. Denies chest complaints at this time. TECHNIQUE: Frontal and lateral radiographic views of the chest acquired. COMPARISON: 11/18/2021 FINDINGS: LUNGS/PLEURA: No focal consolidation or pneumothorax. No pleural effusion. HEART/MEDIASTINUM: Heart size is normal. Normal mediastinal and hilar contours. HARDWARE/LINES/TUBES: None. BONES: No acute findings. OTHER: No other significant finding. THIS IS AN ELECTRONICALLY VERIFIED FINAL REPORT 10/17/2023 12:35 PM - Electronically signed by Andrey Prather M.D. KN: FAYE Report ID: [id number] Reading Location: [id number] IMPRESSION: No acute cardiopulmonary abnormality. Gayla Rangel Page PAC IMG DIAGNOSTIC ORDERABLES Fi nal Result * POCT Urine HCG () (10/17/2023 12:22 PM CDT) Pathologist [facility] POC URINE Negative [facility] POC URINE CONTROL [place] [facility] Urine 10/17/2023 12:2 2 PM CDT Gayla Rangel Page PAC POINT OF CARE TESTING (MANUA L) Final Result [facility] [address] [place] [address] * (ABNORMAL) URINALYSIS REFLEX IF INDICATED BY ABNORMAL RESULTS (10/17/2023 12:18 PM CDT) Pathologist [facility] SPECIFIC GRAVITY 1.010 1.003 - 1.030 10/17/2023 1:11 PM CDT [facility] URINE PH 8.0 5.0 - 9.0 10/17/2023 1:11 PM CDT [facility] WBC ESTERASE Negative Negative 10/17/2023 1:11 PM CDT [facility] NITRITE Negative Negative 10/17/2023 1:11 PM CDT [facility] PROTEIN, RANDOM URINE 30 mg/dL(A) Negative 10/17/2023 1:11 PM CDT [facility] URINE GLUCOSE, QUAL Negative Negative 10/17/2023 1:11 PM CDT [facility] URINE KETONES Negative Negative 10/17/2023 1:11 PM CDT [facility] UROBILINOGEN Normal Normal mg/dL 10/17/2023 1:11 PM CDT [facility] URINE BLOOD Negative Negative pierre/ul 10/17/2023 1:11 PM CDT [facility] URINALYSIS COLOR Yellow 10/17/19 1:11 PM CDT [facility] URINALYSIS CLARITY Slightly Cloudy 10/17/2023 1:11 PM CDT [facility] WBC (Urine) 0-5 Negative, 0-5 /hpf 10/17/2023 1:11 PM CDT [facility] URINE RBC'S 0-2 Negative, 0-2 /hpf 10/17/2023 1:11 PM CDT [facility] EPITHELIAL CELLS Large amount squamous /lpf 10/17/2023 1:11 PM CDT [facility] BACTERIA, URINE Few(A) Negative /hpf 10/17/2023 1:11 PM CDT [facility] Urine URINE SPECIMEN COLLECTION, CLEAN CATCH / Unknown Non-Phlebotomy Collection / Unknown 10/17/2023 12:18 PM CDT 10/17/2023 12:44 PM CDT us Gayla Rangel Page PAC URINE ORDERABLES Final Resul t [facility] [address] [place] [address] * (ABNORMAL) CBC with Auto Differential (10/17/2023 11:32 AM CDT) WBC 5.51 4.00 - 12.00 10(3)/mcL 10/17/2023 12:21 PM CDT [facility] RBC 4.39 3.80 - 5.30 10(6)/mcL 10/17/2023 12:21 PM CDT [facility] HEMOGLOBIN (HGB) 9.7(L) 12.0 - 15.8 g/dL 10/17/2023 12:21 PM CDT [facility] HEMATOCRIT (HCT) 32.9(L) 36.0 - 47.0 % 10/17/2023 12:21 PM CDT [facility] MCV 74.9(L) 82.0 - 96.0 fL 10/17/2023 12:21 PM CDT [facility] MCH 22.1(L) 26.0 - 34.0 pg 10/17/2023 12:21 PM CDT [facility] MCHC 29.5(L) 31.0 - 36.0 g/dL 10/17/2023 12:21 PM CDT [facility] PLATELET COUNT 267 140 - 440 10(3)/mcL 10/17/2023 12:21 PM CDT [facility] RDW 20.4(H) 11.8 - 15.5 % 10/17/2023 12:21 PM CDT [facility] MPV 9.1(L) 9.7 - 12.4 fL 10/17/2023 12:21 PM CDT [facility] NEUTROPHILS 68.8 47.0 - 73.0 % 10/17/2023 12:21 PM CDT [facility] LYMPHOCYTES 22.1 18.0 - 42.0 % 10/17/2023 12:21 PM CDT [facility] MONOCYTES 6.9 4.0 - 12.0 % 10/[facility] EOS[facility] 1.5 0.0 - 5.0 % 10/17/2023 12:21 PM T [facility] BASOPHILS 0.7 0.0 - 1.0 % 10/17/2023 12:21 PM CDT [facility] ABSOLUTE NEUTROPHILS 3.79 1.60 - 7.70 10(3)/mcL 10/17/2023 12:21 PM CDT [facility] ABSOLUTE LYMPHOCYTES 1.22(L) 1.30 - 3.20 10(3)/mcL 10/17/2023 12:21 PM CDT [facility] ABSOLUTE MONOCYTES 0.38 0.20 - 1.00 10(3)/mcL 10/17/2023 12:21 PM CDT [facility] ABSOLUTE EOSINOPHIL 0.08 0.00 - 0.40 10(3)/mcL 10/17/2023 12:21 PM CDT [facility] ABSOLUTE BASOPHILS 0.04 0.00 - 0.10 10(3)/mcL 10/17/2023 12:21 PM CDT [facility] NRBC PER 100 WBC 0 10/17/19 12:21 PM CDT [facility] RESULTS ARE CONSISTENT WITH PERIPHERAL SMEAR REVIEW Yes 10/17/2023 12:21 PM CDT [facility] RBC MORPHOLOGY CONSISTENT WITH INDICES Yes 10/17/2023 12:21 PM CDT [facility] ELLIPTOCYTES Present 10/17/2023 12:21 PM CDT [facility] OVALOCYTES Present 10/17/2023 12:21 PM CDT [facility] Blood Venipuncture / Unknown 10/17/2023 11:32 AM CDT 10/17/2023 11:44 AM CDT Narrative [facility] - 10/17/2023 12:21 PM CDT Anisocytosis Hypochromia Microcytosis us Gayla Rangel Page PAC HEMATOLOGY ORDERABLES Final Result [facility] [address] [place] [address] * (ABNORMAL) Comprehensive Metabolic Panel (Cmp) [id number] (10/17/2023 11:32 AM CDT) SODIUM 141 136 - 145 mmol/L 10/17/2023 12:04 PM CDT [facility] POTASSIUM 3.6 3.5 - 5.1 mmol/L 10/17/2023 12:04 PM CDT [facility] CHLORIDE 108(H) 98 - 107 mmol/L 10/17/2023 12:04 PM CDT [facility] CO2, VENOUS 26 22 - 30 mmol/L 10/17/2023 12:04 PM CDT [facility] ANION GAP 10.6 <18.0 mmol/L 10/17/2023 12:04 PM [facility] GLUCOSE 103(H) 70 - 99 mg/dL 10/17/2023 12:04 PM T [facility] BUN 10 5 - 18 mg/dL 10/17/2023 12:04 PM [facility] CREATININE, BLOOD 0.72 0.60 - 1.00 mg/dL 10/17/2023 12:04 PM [facility] BUN/CREATININE RATIO 14 12 - 20 ratio 10/17/2023 12:04 PM [facility] TOTAL PROTEIN 7.1 6.3 - 8.2 g/dL 10/17/2023 12:04 PM [facility] ALBUMIN 4.4 3.5 - 5.0 g/dL 10/17/2023 12:04 PM [facility] A/G RATIO 1.6 1.0 - 2.2 10/17/2023 12:04 PM [facility] CALCIUM 9.3 8.7 - 10.5 mg/dL 10/17/2023 12:04 PM [facility] T BILI 0.5 0.2 - 1.2 mg/dL 10/17/2023 12:04 PM [facility] SGOT (AST) 14 5 - 34 U/L 10/17/2023 12:04 PM [facility] SGPT (ALT) 11 0 - 55 U/L 10/17/2023 12:04 PM [facility] ALKALINE PHOSPHATASE 40 40 - 150 U/L 10/17/2023 12:04 PM [facility] GFR, ESTIMATED >60 >=60 10/17/2023 12:04 PM [facility] Comment: Creatinine Clearance is the preferred criteria for selecting drug dose adjustments in renally impaired patients. ??The GFR is provided as additional pertinent clinical information. GFR is reported in mL/min/1.73 sq m. Calculation based on the Chronic Kidney Disease Epidemiology Collaboration (CKD- EPI) equation refit without adjustment for race. GFR, EST. >60 >=60 024 12:04 PM CDT [facility] GFR, EST. NONAFRICAN >60 >=60 10/17/2023 12:04 PM CDT [facility] Blood Venipuncture / Unknown 10/17/2023 11:32 AM CDT 10/17/2023 11:44 AM CDT Gayla Rangel Page PAC CHEMISTRY ORDERABLES Final R esult [facility] [address] [place] [address] * RSV,SARS-COV-2,INFLUENZA A&B BY PCR (10/17/2023 11:32 AM CDT) FLU A Negative Negative, Error 10/17/2023 1:56 PM CDT [facility] FLU B Negative Negative 10/17/2023 1:56 PM CDT [facility] RESP SYNC VIRUS Negative Negative 1:56 PM CDT [facility] SARSCOV2 NOT DETECTED (Reference Range for this test is Not Detected) 10/17/2023 1:56 PM CDT [facility] Comment:This test was perfor med by a Reverse Assembly Stock Supervisor PCR Method. Swab NASOPHARYNGEAL SWAB / Unknown Non-Phlebotomy Collection / Unknown 10/17/2023 11:32 AM CDT 10/17/2023 1:04 PM CDT Narrative [facility] - 10/17/2023 1:56 PM CDT This test has not been FDA cleared or approved; the test has been authorized by FDA under an Emergency Use Authorization (EUA) for use by laboratories certified under the CLIA that meet the requirements to perform moderate, high or waived complexity tests. Authorized Fact Sheets about this test for providers and patients are available at: https://www.fda.gov/medical-devices/evwoyixak-ddtmnmkfwt-opmdzhl-devices/emergen cy-us e-authorizations us Gayla Rangel Page PAC MICROBIOLOGY - GENERAL ORDER ANAHI Final Result [facility] [place] [address] documented in this encounter Visit Diagnoses Diagnosis Fever- Primary Fever, unspecified Vomiting and diarrhea Vomiting alone documented in this encounter Additional Health Concerns Infection Onset Date Last Indicated Resolved Time COVID - 19 10/17/2023 10/17/2023 10/17/2023 1:56 PM CDT Assessment Noted Time PHQ-9 Depression Total Score: 0 03/25/19 10:00 AM PATIENT ACCOUNTS COORDINATOR documented as of this encounter Care Teams Fiberglass Dowel Drawing Operator Relationship Specialty Start Date End Date Brian Mon MD [address] [place] [address] PCP - General Internal Medicine 10/17/23 Ct[facility] [place] [employer] [facility] 09/03/19 documented as of this encounter
--- OUTSIDE RECORDS SUMMARY | 2024-02-24 19:42 | XMS_ITS | Encounter Summary ---
Author Organization [facility] Address [address] [place] [address] Phone Care Team Providers Care Auto Damage Adjuster Name Role Phone Gayla Barker APRN, CORING MACHINE OPERATOR Primary Care Provider Ct, [facility] Unavailable Marianela vailable Reason for Visit * Reason Comments Bladder Problem Encounter Details Date Type Department Care Team (Latest Contact Info) Description 03/06/2022 4:15 PM REAL ESTATE ASSOCIATE ATTORNEY Office Visit [facility] - Primary Care - [place] [address] [place] [id number] Brian Mon MD [address] [place], [place] [id number] Dysuria (Primary Dx); Sheridan's disease (HCC); Attention deficit hyperactivity disorder (ADHD), unspecified ADHD type Discharge Disposition: Discharged to home or Selfcare [...] on file Legal Sex Female 10:27 AM REAL ESTATE ASSOCIATE ATTORNEY Gender Identity Not on file Sexual Orientation Not on file COVID-19 Exposure Response Date Recorded In the last 10 days, have yo u been in contact with someone who was confirmed or suspected to have Coronavirus/COVID-19? No / Unsure 12/05/2022 4:56 PM CDT documented as of this encounter Last Filed Vital Signs Vital Sign Reading Time Taken Comments Blood Pressure 122/80 03/06/2022 4:19 PM REAL ESTATE ASSOCIATE ATTORNEY Pulse 68 03/06/2022 4:19 PM REAL ESTATE ASSOCIATE ATTORNEY Temperature 36.4 ??C (97.6 ??F) 03/06/2022 4:19 PM CS T Respiratory Rate 18 03/06/2022 4:19 PM REAL ESTATE ASSOCIATE ATTORNEY Oxygen Saturation 100% 03/06/2022 4:19 PM REAL ESTATE ASSOCIATE ATTORNEY Inhaled Oxygen Concentration - - Weight 78.5 kg (173 lb) 03/06/2022 4:19 PM REAL ESTATE ASSOCIATE ATTORNEY Height 157.5 cm (5' 2 ) 03/06/2022 4:19 PM REAL ESTATE ASSOCIATE ATTORNEY Body Mass Index 31.64 03/06/2022 4:19 PM REAL ESTATE ASSOCIATE ATTORNEY documented in this encounter Progress Notes * Irene Candelario, BELLO - 03/06/2022 4:15 PM CST Carito Dianelys [place], 31 y.o., female is here for Bladder Problem Medication Refills: Patient reports/denies need for medication refills. Orders Pended: no Requested Prescriptions No prescriptions requested or ordered in this encounter Home Medications Medication Sig Start Date End Date Taking? Authorizing Provider hydroxychloroquine (PLAQUENIL) 200 MG Tablet Take 1 Tab by mouth daily. 05/09/19 Yes Gayla Barker, CAST IRON DRAIN PIPE LAYER, CORING MACHINE OPERATOR OMEPRAZOLE PO Take 20 mg by mouth daily. Yes Provider, MD Isis predniSONE (DELTASONE) 5 MG Tablet 01/31/21 Provider, MD Isis promethazine-dextromethorphan (PROMETHAZINE-DM) 6.25-15 MG/5ML Syrup Take 5 mL by mouth every 4 hours as needed for Cough. Patient not taking: No sig reported 12/10/21 Chitra Kaur APRN, CNP sertraline (ZOLOFT) 25 MG Tablet Take 1 tablet by mouth once daily 02/06/22 Yes Gayla Barker APRN, CNP valACYclovir (VALTREX) 500 MG Tablet Take 500 mg by mouth daily. 02/14/22 Yes Provider, MD Isis There are no discontinued medications. I have reviewed the home medication list with the patient and have reconciled discrepancies. The list is accurate to the best of my knowledge. Smoking Status: Social History Tobacco Use ??? Smoking status: Former ??? Smokeless tobacco: Never ??? Tobacco comments: only when drink Vaping Use ??? Vaping Use: Never used Substance Use Topics ??? Alcohol use: Yes Comment: Occasionally ??? Drug use: Yes Types: Marijuana, Cocaine Smoking Cessation Counseling Given: no Health Care Maintenance: Health Maintenance Due Topic Date Due ??? Hepatitis B Immunization (1 of 3 - 3-dose series) Never done ??? SARS-COV-2 Immunization (3 - Pfizer risk series) 11/09/2020 ??? DTaP/Tdap/Td Immunization (3 - Td or Tdap) 05/23/2021 ??? Influenza Immunization (1) Never done Orders Pended: no The following BPA's have been addressed with the patient today: N/A ESTATE ASSOCIATE ATTORNEY * Brian Mon MD - 03/06/2022 4:15 PM CST Subjective: HPI Patient presents with complaint of urinary urgency and frequency. This apparently has been going onfor awhile now. She had a urine dipstick done at her linoleum layer helper's office, which was reportedly unremarkable. Her linoleum layer helper currently has her scheduled for ultrasound of the pelvis due to her chronic lower abdominal pain. She had a complex delivery about 14 months ago. She is also concerned about issues with forgetfulness. This is manifesting itself at her work and at home. She describes a history of ADHD as a child, though she indicates that she was also variously diagnosed as anxious, depressed and bipolar. She never saw a psychiatrist. Review of Systems Constitutional: Negative. HENT: Negative. Eyes: Negative. Respiratory: Negative. Cardiovascular: Negative. Gastrointestinal: Positive for abdominal pain (Diffuse lower). Endocrine: Negative. Genitourinary: Positive for dysuria, frequency and urgency. Musculoskeletal: Negative. Skin: Negative. Allergic/Immunologic: Negative. Neurological: Negative. Hematological: Negative. Psychiatric/Behavioral: Positive for decreased concentration. Objective: Physical Exam Constitutional: Appearance: She is well-developed. HENT: Head: Normocephalic. Right Ear: External ear normal. Left Ear: External ear normal. Nose: Nose normal. Eyes: Pupils: Pupils are equal, round, and reactive to light. Cardiovascular: Rate and Rhythm: Normal rate and regular rhythm. Pulmonary: Effort: Pulmonary effort is normal. No respiratory distress. Abdominal: Tenderness: There is abdominal tenderness (Minimal) in the right lower quadrant, suprapubic area and left lower quadrant. There is no right CVA tenderness or left CVA tenderness. Musculoskeletal: General: Normal range of motion. Cervical back: Normal range of motion. Skin: General: Skin is warm and dry. Neurological: Mental Status: She is alert and oriented to person, place, and time. Psychiatric: Mood and Affect: Mood normal. Speech: Speech normal. Behavior: Behavior normal. Thought Content: Thought content normal. Judgment: Judgment normal. Assessment and Plan See Diagnoses, Orders, Follow-up, and Instructions Problem List Items Addressed This Visit Endocrine Gume's disease (HCC) Other Visit Diagnoses Dysuria - Primary Relevant Orders URINALYSIS REFLEX IF INDICATED BY ABNORMAL RESULTS BASIC METABOLIC PANEL W/ CALCIUM TOTAL Attention deficit hyperactivity disorder (ADHD), unspecified ADHD type Relevant Orders PSYCHOLOGY REFERRAL Check urinalysis and BMP. She is concerned about her kidneys, so I have advised her to contact her linoleum layer helper to make sure the ultrasound does include bladder and kidneys. Referral to psychologicalservices for assessment for possible ADD. I have seen and examined the patient on today's date. Documentation for this visit was completed using the assistance of a template. Everything documented in this visit was personally performed todaywith the necessary additions, deletions and changes. ESTATE ASSOCIATE ATTORNEY documented in this encounter Miscellaneous Notes * Addendum Note - Gladis Simpson RMA - 03/06/2022 4:15 PM CSTAddended by: GLADIS SIMPSON on: 09/04/2022 08:49 AM Modules accepted: Orders * Addendum Note - Gladis Simpson RMA - 03/06/2022 4:15 PM CSTAddended by: GLADIS SIMPSON on: 03/05/2023 06:05 AM Modules accepted: Orders ESTATE ASSOCIATE ATTORNEY documented in this encounter Plan of Treatment Not on file documented as of this encounter Visit Diagnoses Diagnosis Dysuria- Primary Sheridan's disease (HCC) Glucocorticoid deficiency Attention deficit hyperactivity disorder (ADHD), unspecified ADHD type documented in this encounter Additional Health Concerns Infection Onset Date Last Indicated Resolved Time COVID - 19 04/25/2022 04/25/2022 05/05/2022 12:1 6 AM REAL ESTATE ASSOCIATE ATTORNEY Assessment Noted Time PHQ-9 Depression Total Score: 0 03/25/19 10:00 AM REAL ESTATE ASSOCIATE ATTORNEY documented as of this encounter Care Teams Auto Damage Adjuster Relationship Specialty Start Date End Date Gayla Barker, CAST IRON DRAIN PIPE LAYER, CORING MACHINE OPERATOR [address] [place] [address] PCP - General Advanced Practice Nurse 03/25/19 Ct[facility] [place] [facility] 09/03/19 documented as of this encounter
--- OUTSIDE RECORDS SUMMARY | 2024-02-24 19:42 | XMS_ITS | Encounter Summary ---
Author Organization [employer] Care Team Providers Care Party Director Name Role Phone Gayla Barker FUR CLIPPER, SUPPLY ASSISTANT Primary Care Provider Ct, [facility] Unavailable Marianela vailable Encounter Details Date Type Department Care Team (Latest Contact Info) Description 12/10/2021 Travel Social History Tobacco Use Types Packs/Day [...] Active Control Partners Comments Yes Male Comments Unknown Sex and Gender Information Value Date Recorded Sex Assigned at Not on file Legal Sex Female 10:27 AM NAPHTHOL SOAPING MACHINE OPERATOR Gender Identity Not on file Sexual Orientation Not on file COVID-19 Exposure Response Date Recorded In the last 10 days, have yo u been in contact with someone who was confirmed or suspected to have Coronavirus/COVID-19? No / Unsure 12/10/2021 8:43 AM CDT documented as of this encounter Plan of Treatment Not on file documented as of this encounter Visit Diagnoses Not on filedocumented in this encounter Additional Health Concerns Assessment Noted Time PHQ-9 Depression Total Score: 0 03/25/19 20 10:00 AM NAPHTHOL SOAPING MACHINE OPERATOR documented as of this encounter Care Teams Party Director Relationship Specialty Start Date End Date Gayla Barker, FUR CLIPPER, SUPPLY ASSISTANT [address] [place] [address] PCP - General Advanced Practice Nurse 03/25/19 Ct, [facility] [place] [facility] 09/03/19 documented as of this encounter
--- OUTSIDE RECORDS SUMMARY | 2024-02-24 19:42 | XMS_ITS | Encounter Summary ---
Author Organization [employer] Care Team Providers Care Architectural Sales Consultant Name Role Phone Gayla Barker COOK 3 PASTRY, DIRECTOR ENTERPRISE DATA ARCHITECTURE Primary Care Provider Ct, [facility] Unavailable Marianela vailable Encounter Details Date Type Department Care Team (Latest Contact Info) Description 04/25/2022 Travel Social History Tobacco Use Types Packs/Day [...] on file Legal Sex Female 10:27 AM TRAVELIFT OPERATOR Gender Identity Not on file Sexual Orientation Not on file COVID-19 Exposure Response Date Recorded In the last 10 days, have yo u been in contact with someone who was confirmed or suspected to have Coronavirus/COVID-19? No / Unsure 04/25/2022 7:14 AM TRAVELIFT OPERATOR documented as of this encounter Plan of Treatment Not on file documented as of this encounter Visit Diagnoses Not on filedocumented in this encounter Additional Health Concerns Infection Onset Date Last Indicated Resolved Time COVID - 19 04/25/2022 04/25/2022 05/05/2022 12:1 6 AM TRAVELIFT OPERATOR Assessment Noted Time PHQ-9 Depression Total Score: 0 03/25/19 10:00 AM TRAVELIFT OPERATOR documented as of this encounter Care Teams Architectural Sales Consultant Relationship Specialty Start Date End Date Gayla Barker, COOK 3 PASTRY, DIRECTOR ENTERPRISE DATA ARCHITECTURE [address] [place] [address] PCP - General Advanced Practice Nurse 03/25/19 Ct, [facility] [place] [facility] 09/03/19 documented as of this encounter
--- OUTSIDE RECORDS SUMMARY | 2024-02-24 19:42 | XMS_ITS | Encounter Summary ---
Author Organization [facility] Address [address] [facility] [place] [address] Phone Care Team Providers Care Flare Worker Name Role Phone Gayla Barker APRN, FRUIT GRADING SUPERVISOR Primary Care Provider Ct, [facility] Unavailable Marianela vailable Reason for Visit * Reason Onset Date Comments Cough 04/24/2022 Encounter Details Date Type Department Care Team (Late st Contact Info) Description 04/24/2022 Nurse Triage [facility] [address] [place] [address] Gayla Barker, ANNIE, FRUIT GRADING SUPERVISOR [address] [place] [address] Cough Social History Tobacco Use Types Packs/Day Years [...] on file Legal Sex Female 10:27 AM ELECTRICAL APPLIANCE MECHANIC Gender Identity Not on file Sexual Orientation Not on file COVID-19 Exposure Response Date Recorded In the last 10 days, have yo u been in contact with someone who was confirmed or suspected to have Coronavirus/COVID-19? No / Unsure 04/25/2022 7:14 AM ELECTRICAL APPLIANCE MECHANIC documented as of this encounter Miscellaneous Notes * Telephone Encounter - Marleni Manrique APRN, CNP - 04/25/2022 10:32 AM CST Tessalon pearles sent to pharmacy TRICAL APPLIANCE MECHANIC * Telephone Encounter - Roro Poon RN - 04/24/2022 5:13 PM CST SITUATION: Cough- over a week BACKGROUND: Patient Active Problem List Diagnosis ??? Herpes genitalis ??? Laceration of flexor muscle, fascia and tendon of right little finger at wrist and hand level, initial encounter ??? Pain in joint ??? Myalgia, unspecified site ??? Systemic lupus erythematosus (HCC) ??? Weakness ??? Spontaneous ??? Abdominal pain ??? BMI 29.0-29.9,adult ??? Diarrhea ??? Epigastric pain ??? Gastroesophageal reflux disease ??? Liver lesion ??? Nausea and vomiting ??? 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 Adrenal insufficiency (HCC) ??? Anti-E M ASSEMBLER antibodies present ??? Microcytic anemia ??? Bilateral chronic serous otitis media ??? Pitt's disease (HCC) ??? Secondary adrenal insufficiency (HCC) ??? Attention deficit hyperactivity disorder (ADHD), combined type ??? Generalized anxiety disorder ??? Adrenal insufficiency (HCC) ASSESSMENT: Report: Cough- productive Constant barky Asthma Fever Ear pain Sore throat Denies: Chest pain Shortness of breath Wheezing Coughing Up reddish brown sputum Pain (0-10): 5/10 Temp: denies Treatment / Response: albuterol inhaler, delsym, honey, tea, benadryl, sinus rinses, humidifier, tessalon pearls- No relief RECOMMENDATION: See care advice and disposition for Guideline First positive answer recorded, all responses to prior questions were negative. If symptoms increase, change or if new symptoms develop, call your HCP or call back. Recommendations were based on caller information and is not a diagnosis. Verified and reviewed all triage information with caller. Disposition : See physician within 24 hours. This RN offered appointment. Patient declined. Patientstates she was just seen in EMERGENCY DEPARTMENT. Patient requesting something for cough to be sentin. Patient advised to call back with any new or worsening symptoms. Please advise and follow up with patient Regarding recommendations. Assistive devices verified Medications, allergies, and pharmacy reviewed. Reason for Disposition ??? Earache Protocols used: COUGH - ACUTE [id number] TRICAL APPLIANCE MECHANIC documented in this encounter Plan of Treatment Not on file documented as of this encounter Visit Diagnoses Diagnosis Acute cough- Primary documented in this encounter Additional Health Concerns Infection Onset Date Last Indicated Resolved Time COVID - 19 04/25/2022 04/25/2022 05/05/2022 12:1 6 AM ELECTRICAL APPLIANCE MECHANIC Assessment Noted Time PHQ-9 Depression Total Score: 0 03/25/19 10:00 AM ELECTRICAL APPLIANCE MECHANIC documented as of this encounter Care Teams Flare Worker Relationship Specialty Start Date End Date Gayla Barekr, RADIO TESTER, FRUIT GRADING SUPERVISOR [address] [place] [address] PCP - General Advanced Practice Nurse 03/25/19 Ct, [facility] [place] [facility] 09/03/19 documented as of this encounter
--- OUTSIDE RECORDS SUMMARY | 2024-02-24 19:42 | XMS_ITS | Encounter Summary ---
Author Organization [employer] Care Team Providers Care Blood Bank Manager Name Role Phone aGyla Barker BUSINESS PROPOSAL REP, PAPER SALES MANAGER Primary Care Provider Ct, [facility] Unavailable Marianela vailable Encounter Details Date Type Department Care Team (Latest Contact Info) Description 06/08/2022 Travel Social History Tobacco Use Types Packs/Day [...] on file Legal Sex Female 10:27 AM SANTA'S HELPER Gender Identity Not on file Sexual Orientation Not on file COVID-19 Exposure Response Date Recorded In the last 10 days, have yo u been in contact with someone who was confirmed or suspected to have Coronavirus/COVID-19? No / Unsure 06/08/2022 8:17 PM CDT documented as of this encounter Plan of Treatment Not on file documented as of this encounter Visit Diagnoses Not on filedocumented in this encounter Additional Health Concerns Assessment Noted Time PHQ-9 Depression Total Score: 0 03/25/19 20 10:00 AM SANTA'S HELPER documented as of this encounter Care Teams Blood Bank Manager Relationship Specialty Start Date End Date Gayla Barker, BUSINESS PROPOSAL REP, PAPER SALES MANAGER [address] [place] [address] PCP - General Advanced Practice Nurse 03/25/19 Ct, [facility] [place] [facility] [place] 09/03/19 documented as of this encounter
--- OUTSIDE RECORDS SUMMARY | 2024-02-24 19:42 | XMS_ITS | Encounter Summary ---
Author Organization [facility] Address [address] [facility] [place] [address] Phone Care Team Providers Care Career Portals Teacher Name Role Phone Gayla Barker APRN, OUTPATIENT CODING SPECIALIST Primary Care Provider Ct, [facility] Unavailable Marianela vailable Reason for Visit * Reason Onset Date Comments Abdominal Pain 03/02/2022 Encounter Details Date Type Department Care Team (Late st Contact Info) Description 03/02/2022 Nurse Triage [facility] [address] [place] [address] Gayla Barker, ANNIE, OUTPATIENT CODING SPECIALIST [address] [place] [address] Abdominal Pain Social History Tobacco Use Types Packs/Day Years [...] on file Legal Sex Female 10:27 AM MARKETING OPERATIONS ANALYST Gender Identity Not on file Sexual Orientation Not on file documented as of this encounter Miscellaneous Notes * Telephone Encounter - Kristie Yee RN - 03/02/2022 7:09 AM MARKETING OPERATIONS ANALYST SITUATION: Abdominal pain BACKGROUND: Symptom onset 03/01/22. Patient does not have an appendix. Patient was seen by OB yesterday to rule out UTI. ASSESSMENT: Symptom Description / Location: patient complains of low central abdominal pain that radiates into her back. Describes pain as extreme stabbing gas cramps. Patient denies chest pain or shortness of breath. Pain (0-10): 6/10 Temp: unaware but does not feel feverish Treatment / Response: antiacid, prednisone LMP / / : Around elisabet RECOMMENDATION: See care advice and disposition for Guideline First positive answer recorded, all responses to prior questions were negative. If symptoms increase, change or if new symptoms develop, call your HCP or call back. Recommendations were based on caller information and is not a diagnosis. Verified and reviewed all triage information with caller. Reason for Disposition ? ? Constant abdominal pain lasting > 2 hours Protocols used: ABDOMINAL PAIN - FEMALE-A-OH ETING OPERATIONS ANALYST documented in this encounter Plan of Treatment Not on file documented as of this encounter Visit Diagnoses Not on filedocumented in this encounter Additional Health Concerns Assessment Noted Time PHQ-9 Depression Total Score: 0 03/25/19 10:00 AM MARKETING OPERATIONS ANALYST documented as of this encounter Care Teams Career Portals Teacher Relationship Specialty Start Date End Date Gayla Barker, AOC DIRECTOR COMBAT PLANS OFFICER, OUTPATIENT CODING SPECIALIST [address] [place] [address] PCP - General Advanced Practice Nurse 03/25/19 Ct[facility] [place] [employer] [place] 09/03/19 documented as of this encounter
--- OUTSIDE RECORDS SUMMARY | 2024-02-24 19:42 | XMS_ITS | Encounter Summary ---
Author Organization [facility] Address [address] [place] [address] Phone Care Team Providers Care District Plant Superintendent Name Role Phone Gayla Barker APRN, CLINICAL CARE MANAGER Primary Care Provider Ct, [facility] Unavailable Marianela vailable Reason for Visit * Reason Comments Eye Injury Encounter Details Date Type Department Care Team (Late st Contact Info) Description 06/08/2022 8:21 PM CDT - 06/08/2022 8:59 PM CDT Emergency [facility] Emergency [address] [place] [id number] Gayla Jimenez, PAC [address] [place] [address] Corneal abrasion Discharge Disposition: Discharged to home or Selfcare [...] on file Legal Sex Female 10:27 AM BUNDLE HELPER Gender Identity Not on file Sexual Orientation Not on file COVID-19 Exposure Response Date Recorded In the last 10 days, have yo u been in contact with someone who was confirmed or suspected to have Coronavirus/COVID-19? No / Unsure 06/08/2022 8:17 PM CDT documented as of this encounter Last Filed Vital Signs Vital Sign Reading Time Taken Comments Blood Pressure 130/89 06/08/2022 8:17 PM CDT Pulse 72 06/08/2022 8:17 PM CDT Temperature 36.8 ??C (98.3 ??F) 06/08/2022 8:17 PM CD T Respiratory Rate 19 06/08/2022 8:17 PM CDT Oxygen Saturation 98% 06/08/2022 8:17 PM CDT Inhaled Oxygen Concentration - - Weight 79.4 kg (175 lb) 06/08/2022 8:17 PM CDT Height 157.5 cm (5' 2 ) 06/08/2022 8:17 PM CDT Body Mass Index 32.01 06/08/2022 8:17 PM CDT documented in this encounter Discharge Instructions * Discharge Instructions* Gayla Jimenez PAC - 06/08/2022 8:57 PM CDT Please follow up with an eye physician if your symptoms are not improving in the next 2 days. Return for reevaluation if your symptoms change or worsen. * Attachments The following attachments cannot be sent through Care Everywhere. * Corneal Abrasion (Cypriot) documented in this encounter Medications at Time of Discharge benzonatate (TESSALON) 100 MG CapsuleIndicatio ns:Acute cough Take 1 Capsule by mouth 3 times daily as needed for Cough. 30 Capsule 04/25/2022 hydroxychloroqui ne (PLAQUENIL) 200 MG Tablet Take 1 Tab by mouth daily. 90 Tab 3 05/09/2019 OMEPRAZOLE PO Take 20 mg by mouth daily. predniSONE (DELTASONE) 5 MG Tablet 01/31/2021 Semaglutide (OZEMPIC, 0.25 OR 0.5 MG/DOSE, SC) by Subcutaneous route. valACYclovir (VALTREX) 500 MG Tablet Take 500 mg by mouth daily. 02/14/2022 sertraline (ZOLOFT) 25 MG Tablet Take 1 tablet by mouth once daily 90 Tablet 02/06/2022 3 documented as of this encounter ED Notes * Samantha Sim RN - 06/08/2022 8:57 PM CDT Patient discharged. Discharge instructions and patient educational material reviewed with patient; questions and concerns addressed; patient verbalizes understanding, using teach back. Patient was given 1 prescriptions. Patient was informed no drinking alcohol, driving or operating heavy machinery while taking narcotics or muscle relaxants. Patient discharged per ambulatory mode with self as responsible democrat. * Gayla Jimenez, CARIDAD - 06/08/2022 8:57 PM CDT Chief Complaint Patient presents with ??? Eye Injury HPI Carito Madison is a 32 y.o. female who presents due to R eye pain and watering after her 1 year old daughter poked her in the eye. She states she is having blurred vision and a headache due tothe pain in her eye. She does not have contacts in currently. She states she is doing well otherwise. No current facility-administered medications for this encounter. Current Outpatient Medications Medication Sig Dispense Refill ??? benzonatate (TESSALON) 100 MG Capsule Take 1 Capsule by mouth 3 times daily as needed for Cough. (Patient not taking: Reported on 05/15/2022) 30 Capsule 0 ??? hydroxychloroquine (PLAQUENIL) 200 MG Tablet Take 1 Tab by mouth daily. 90 Tab 3 ??? OMEPRAZOLE PO Take 20 mg by mouth daily. ??? predniSONE (DELTASONE) 5 MG Tablet ??? Semaglutide (OZEMPIC, 0.25 OR 0.5 MG/DOSE, SC) by Subcutaneous route. ??? sertraline (ZOLOFT) 25 MG Tablet Take 1 tablet by mouth once daily 90 Tablet 0 ??? tobramycin (Tobrex) 0.3 % Solution Place 1-2 Drops in right eye every 4 hours. 5 mL 0 ??? valACYclovir (VALTREX) 500 MG Tablet Take 500 mg by mouth daily. (Patient not taking: Reported on 05/15/2022) Allergies Allergen Reactions ??? Amoxicillin Rash ??? [...] History Narrative ??? Not on file BP 130/89 Pulse 72 Temp 98.3 ??F (36.8 ??C) (Tympanic) Resp 19 Ht 5' 2 (1.575 m) Wt 175 lb (79.4 kg) LMP 04/04/2022 (Approximate) SpO2 98% BMI 32.01 kg/m?? Review of Systems Constitutional: Negative for chills and fever. HENT: Negative for congestion, ear pain, rhinorrhea and sore throat. Eyes: Positive for pain, redness and visual disturbance. Negative for discharge. Respiratory: Negative for cough, chest tightness, shortness of breath and wheezing. Cardiovascular: Negative for chest pain and palpitations. Gastrointestinal: Negative for abdominal pain, diarrhea, nausea and vomiting. Genitourinary: Negative for difficulty urinating and menstrual [...] normal. Left Ear: External ear normal. Eyes: Extraocular Movements: Extraocular movements intact. Pupils: Pupils are equal, round, and reactive to light. Comments: R conjunctival injection, watering Neck: Trachea: No tracheal deviation. Cardiovascular: Rate [...] time. Cranial Nerves: No cranial nerve deficit. Procedures 1 drop proparacaine instilled in R eye with relief. Fluorescein stain completed which showed a moderate abrasion at the 5 oclock position. Eye flushed with eye wash. Imaging Results None Labs Reviewed - No data to display MDM Clinical Impression 1. Corneal abrasion Disposition: Discharged Patient was started on tobrex opth gtts. Encouraged close f/u with an eye physician if symptoms arenot improving and to return for reevaluation if sx change or worsen. Cosigned by Jorge Ramirez MD at 06/09/2022 5:25 AM CDT * Abeba Abbott RN - 06/08/2022 8:20 PM CDT Pt to triage with c/o right eye pain. Pt reports he daughter poked her the eye approx 2 hours ago. Pt eye is red and teary. documented in this encounter Plan of Treatment Not on file documented as of this encounter Visit Diagnoses Diagnosis Corneal abrasion- Primary Superficial injury of cornea documented in this encounter Administered Medications Inactive Administered Medications - up to 3 most recent administrations Medication Order MAR Action Action Date Dose Rate Site balanced salt solution non-surgical (EYE STREAM) solution Right Eye, ONCE, 1 dose, On Rachel 06/08/22 at 2099 Given 06/08/2022 8:38 PM CDT fluorescein strip 1 mg 1 mg (1 Strip), Right Eye, ONCE, 1 dose, On Rachel 06/08/22 at 2099 Given 06/08/2022 8:38 PM CDT 1 mg proparacaine (ALCAINE) 0.5 % ophthalmic solution 1 Drop 1 Drop, Right Eye, ONCE, 1 dose, On Rachel 06/08/22 at 2099 Given 06/08/2022 8:37 PM CDT 1 Drop documented in this encounter Active and Recently Administered Medications Times are shown in CDT. Scheduled Medication Order 06/06/2022 06/07/2022 06/08/2022 balanced salt solution non-surgical (EYE STREAM) solution (COMPLETED) Right Eye, ONCE, 1 dose, On Rachel 06/08/22 at 2099 2037 (Given - Provid er: Abeba Abbott RN) fluorescein strip 1 mg (COMPLETED) 1 mg (1 Strip), Right Eye, ONCE, 1 dose, On Rachel 06/08/22 at 2099 2037 (Given - Provid er: Abeba Abbott RN) proparacaine (ALCAINE) 0.5 % ophthalmic solution 1 Drop (COMPLETED) 1 Drop, Right Eye, ONCE, 1 dose, On Rachel 06/08/22 at 2099 2036 (Given - Provid er: Abeba Abbott RN) documented in this encounter Additional Health Concerns Assessment Noted Time PHQ-9 Depression Total Score: 0 03/25/19 20 10:00 AM BUNDLE HELPER documented as of this encounter Care Teams District Plant Superintendent Relationship Specialty Start Date End Date Gayla Barker, FURNITURE SALES ASSOCIATE, CLINICAL CARE MANAGER [address] [place] [address] PCP - General Advanced Practice Nurse 03/25/19 Ct[facility] [place] [employer] [facility] 09/03/19 documented as of this encounter
--- OUTSIDE RECORDS SUMMARY | 2024-02-24 19:42 | XMS_ITS | Encounter Summary ---
Author Organization [facility] Care Team Providers Care 4Th Grade Math Teacher Name Role Phone Gayla Barker FIXTURE REPAIRER FABRICATOR, GRASS FARMER Primary Care Provider Ct, [facility] Unavailable Marianela vailable Encounter Details Date Type Department Care Team (Latest Contact Info) Description 12/14/2021 Travel Social History Tobacco Use Types Packs/Day [...] on file Legal Sex Female 10:27 AM ACCOUNT RESOLUTION SPECIALIST Gender Identity Not on file Sexual Orientation Not on file COVID-19 Exposure Response Date Recorded In the last 10 days, have yo u been in contact with someone who was confirmed or suspected to have Coronavirus/COVID-19? No / Unsure 12/14/2021 8:39 AM CDT documented as of this encounter Plan of Treatment Not on file documented as of this encounter Visit Diagnoses Not on filedocumented in this encounter Additional Health Concerns Assessment Noted Time PHQ-9 Depression Total Score: 0 03/25/19 20 10:00 AM ACCOUNT RESOLUTION SPECIALIST documented as of this encounter Care Teams 4Th Grade Math Teacher Relationship Specialty Start Date End Date Gayla Barker, FIXTURE REPAIRER FABRICATOR, GRASS FARMER [address] [place] [address] PCP - General Advanced Practice Nurse 03/25/19 Ct[facility] [place] [employer] [place] 09/03/19 documented as of this encounter
--- OUTSIDE RECORDS SUMMARY | 2024-02-24 19:42 | XMS_ITS | Encounter Summary ---
Author Organization [facility] Address [address] [place] [address] Phone Care Team Providers Care Change Control Specialist Name Role Phone Gayla Barker APRN, HARSHA Primary Care Provider Ct, [facility] Unavailable Marianela vailable Reason for Visit * Reason Onset Date Comments Advice Only 03/01/2022 Possible bladder infection for 2-3 days Encounter Details Date Type Department Care Team (Late st Contact Info) Description 03/01/2022 Telephone [facility] [address] [place] [address] Gayla Barker, ANNIE, TRANSMITTER SUPERVISOR [address] [place] [address] Advice Only (Possible bladder infection for 2-3 days) Social History Tobacco Use Types Packs/Day Years [...] on file Legal Sex Female 10:27 AM BROACH OPERATOR Gender Identity Not on file Sexual Orientation Not on file documented as of this encounter Miscellaneous Notes * Telephone Encounter - Champ Ojeda - 03/01/2022 11:28 AM CST Situation: patient is calling regarding requesting an appointment, possible bladder infection for 2-3 days. Background: (information related to call): 2-3 days have had symptoms. Action/Response: call transferred to: triage nurse CH OPERATOR documented in this encounter Plan of Treatment Not on file documented as of this encounter Visit Diagnoses Not on filedocumented in this encounter Additional Health Concerns Assessment Noted Time PHQ-9 Depression Total Score: 0 03/25/19 20 10:00 AM BROACH OPERATOR documented as of this encounter Care Teams Change Control Specialist Relationship Specialty Start Date End Date Gayla Barker, INTERNET ECOMMERCE SPECIALIST, TRANSMITTER SUPERVISOR [address] [place] [address] PCP - General Advanced Practice Nurse 03/25/19 Ct[facility] [place] [employer] [place] 09/03/19 documented as of this encounter
--- OUTSIDE RECORDS SUMMARY | 2024-02-24 19:42 | XMS_ITS | Encounter Summary ---
Author Organization [facility] Address [address] [place] [address] Phone Care Team Providers Care Oncology Transplant Network Manager Name Role Phone Ct, Acute Covid At Home Care Unavailable Marianela dagoble Brian Mon MD Primary Care Provider [phone] Reason for Visit * Reason Comments Breast Problem Encounter Details Date Type Department Care Team ([facility] st Contact Info) Description 12/23/2023 10:43 AM CDT - 12/23/2023 11:10 AM CDT Emergency [facility] Emergency [address] [place] [id number] Gayla Jimenez, PAC [address] [place] [address] Hematoma of right breast Discharge Disposition: Discharged to home or Selfcare [...] on file Legal Sex Female 10:27 AM BRICK MASON Gender Identity Not on file Sexual Orientation Not on file documented as of this encounter Last Filed Vital Signs Vital Sign Reading Time Taken Comments Blood Pressure 117/84 12/23/2023 10:47 AM CDT Pulse 76 12/23/2023 10:47 AM CDT Temperature 36.5 ??C (97.7 ??F) 12/23/2023 10:47 AM C DT Respiratory Rate 16 12/23/2023 10:47 AM CDT Oxygen Saturation 99% 12/23/2023 10:47 AM CDT Inhaled Oxygen Concentration - - Weight 78.2 kg (172 lb 6.4 oz) 12/23/2023 10:47 AM CDT Height 157.5 cm (5' 2 ) 12/23/2023 10:47 AM CDT Body Mass Index 31.53 12/23/2023 10:47 AM CDT documented in this encounter Discharge Instructions * Discharge Instructions* Gayla Jimenez PAC - 12/23/2023 11:10 AM CDT Please follow up with your surgeon as scheduled tomorrow. Seek reevaluation if your symptoms changeor worsen. Apply ice and take ibuprofen for discomfort. documented in this encounter Medications at Time [...] as of this encounter ED Notes * Gayla Jimenez, PAC - 12/23/2023 11:10 AM CDT Chief Complaint Patient presents with Breast Problem HPI Carito Madison is a 33 y.o. female who presents due to concern for a hematoma to her R breast. She had a breast reduction at [place] at an outpatient facility in [facility] on . She hada fever and breast tenderness a few week after the procedure. She states that her surgeon put her on an antibiotic and these symptoms resolved. She states that 5 days ago she noticed purplish ring around her areola and today she had an increase in bruising and pain. She denies a fever or any breastdrainage. She states that she contacted her surgeon's office and they sent her here for an ultrasound. She states she does have an appt tomorrow at 8AM for an ultrasound. Her pmd is Dr. Mon. PMH includes lupus, asthma, anxiety, CKD. No current facility-administered medications for this encounter. [...] Resource Needs: Low Risk (01/01/2021) Received from [facility] Overall Financial Resource Strain (CARDIA) Difficulty of Paying Living Expenses: Not hard at all Food Insecurity Needs: No Food Insecurity (01/01/2021) Received from [facility] Hunger Vital Sign Worried About Running Out of Food in the Last Year: Never true Ran Out of Food in the Last Year: Never true Transportation Needs: No Transportation Needs (01/01/2021) Received from [facility] PRAPARE - Transportation Lack of Transportation (Medical): No Lack of Transportation (Non-Medical): No Physical Activity: Not on file Stress: Not on file Social Integration: Unknown (01/01/2021) Received from [facility] Social Connection and Isolation Panel [NHANES] Frequency of Communication with Friends and Family: More than three times a week Frequency of Social Gatherings with Friends and Family: Not on file Attends Anabaptist Services: Not on file Active Member of Clubs or Organizations: Not on file Attends Club or Organization Meetings: Not on file Marital Status: Intimate Partner Violence: Not on file Housing Stability: Not on file BP 117/84 Pulse 76 Temp 97.7 ??F (36.5 ??C) (Tympanic) Resp 16 Ht 5' 2 (1.575 m) Wt 172 lb 6.4 oz (78.2 kg) LMP 04/04/2022 (Approximate) SpO2 99% BMI 31.53 kg/m?? Review of Systems Constitutional: Negative for [...] Musculoskeletal: Negative for arthralgias and myalgias. Skin: Positive for color change (R breast). Negative for rash and wound. Neurological: Negative [...] General: Skin is warm and dry. Comments: R breast with a 3x3 cm palpable lump in the 7 oclock position with overlying purplish contusion. Exam consistent with a hematoma. Patient also has a hematoma in areolar region. No necrotic changes. No erythema or warmth. No drainage. Neurological: Mental Status: She is alert and oriented to person, place, and time. Cranial Nerves: No cranial nerve deficit. Procedures No results found for this or any previous visit (from the past 24 hour(s)). Imaging Results None Medical Decision Making Clinical Impression 1. Hematoma of right breast Disposition: Discharge Exam is consistent with a hematoma. Reassurance provided. We do not have ultrasound capability today. Discussed CT and patient declined given she has an appt with her surgeon tomorrow at 8AM for ultrasound. Advised seeking reevaluation if sx change or worsen. Encouraged her to apply ice 20 minutes off and on. Cosigned by Mohit Saldaña MD at 12/23/2023 12:55 PM CDT * Darwin Moreno RN - 12/23/2023 11:10 AM CDT pt understands d/c instructions and plans to keep her appt with breast surgeon tomorrow morning. ptambulatory out of er with steady gait. * Darwin Moreno RN - 12/23/2023 10:57 AM CDT pt reports breast reduction 3 months ago without complications. yesterday she noticed a small amount purplish ring around areola area, but no tenderness. this am she awoke and found more bruising andtenderness. she denies known injury or strain. she does not take blood thinners. documented in this encounter Miscellaneous Notes * PatientPass Patient Instructions - Gayla Jimenez PAC - 12/23/2023 11:09 AM CDT Images from the original note were not included. Patient Education Table of Contents Hematoma To view videos and all your education online visit, [email or web address] or scan this QR code with your smartphone. Access to this content will in one year. Hematoma A hematoma is a collection of blood under the skin, in an organ, in a body space, in a joint space,or in other tissue. The blood can thicken (clot) to form a lump that you can see and feel. The lumpis often firm and may become sore and tender. Most hematomas get better in a few days to weeks. However, some hematomas may be serious and require medical care. Hematomas can range from very small tovery large. What are the causes? This condition is caused by: A blunt or penetrating injury. Leakage from a blood vessel under the skin. Some medical procedures, including surgeries, such as oral surgery, face lifts, and surgeries on the joints. Some medical conditions that cause bleeding or bruising. There may be multiple hematomas that appear in different areas of the body. What increases the risk? You are more likely to develop this condition if: You are an older adult. You use blood thinners. You regularly use NSAIDs, such as ibuprofen, for pain. You play contact sports. What are the signs or symptoms? Symptoms of this condition depend on where the hematoma is located. Common symptoms of a hematoma that is under the skin include: A firm lump on the body. Pain and tenderness in the area. Bruising. Blue, dark blue, purple-red, or yellowish skin (discoloration) may appear at the site of the hematoma if the hematoma is close to the surface of the skin. Common symptoms of a hematoma that is deep in the tissues or body spaces may be less obvious. They include: A collection of blood in the stomach (intra-abdominal hematoma). This may cause pain in the abdomen, weakness, fainting, and shortness of breath. A collection of blood in the head (intracranial hematoma). This may cause a headache or symptoms such as weakness, trouble speaking or understanding, or a change in consciousness. How is this diagnosed? This condition is diagnosed based on: Your medical history. A physical exam. Imaging tests, such as an ultrasound or CT scan. These may be needed if your health care provider suspects a hematoma in deeper tissues or body spaces. Blood tests. These may be needed if your health care provider believes that the hematoma is caused by a medical condition. How is this treated? Treatment for this condition depends on the cause, size, and location of the hematoma. Treatment may include: Doing nothing. The majority of hematomas do not need treatment as many of them go away on their own. Surgery or close monitoring. This may be needed for large hematomas or hematomas that affect vital organs. Medicines. Medicines may be given if there is an underlying medical cause for the hematoma. Follow these instructions at home: Managing pain, stiffness, and swelling If directed, put ice on the injured area. To do this: ? Put ice in a plastic bag. ? Place a towel between your skin and the bag. ? Leave the ice on for 20 minutes, 2?3 times a day for the first couple of days. ? If your skin turns bright red, remove the ice right away to prevent skin damage. The risk of skindamage is higher if you cannot feel pain, heat, or cold. If directed, apply heat to the affected area as often as told by your health care provider. Use theheat source that your health care provider recommends, such as a moist heat pack or a heating pad. ? Place a towel between your skin and the heat source. ? Leave the heat on for 20?30 minutes. ? If your skin turns bright red, remove the heat right away to prevent allison. The risk of allison is higher if you cannot feel pain, heat, or cold. Raise (elevate) the injured area above the level of your heart while you are sitting or lying down. If directed, wrap the affected area with an elastic bandage. The bandage applies pressure (compression) to the area, which may help to reduce swelling and promote healing. Do not wrap the bandage tootightly around the affected area. If your hematoma is on a leg or foot (lower extremity) and is painful, your health care provider may recommend crutches. Use them as told by your health care provider. General instructions Take [id number] and prescription medicines only as told by your health care provider. Rest the injured area as directed by your health care provider. Keep all follow-up visits. Your health care provider may want to see how your hematoma is progressing with treatment. Contact a health care provider if: You have a fever. The swelling or discoloration gets worse. You develop more hematomas. Your pain is worse or your pain is not controlled with medicine. Your skin over the hematoma breaks or starts bleeding. Get help right away if: Your hematoma is in your chest or abdomen and you have weakness, shortness of breath, or a change in consciousness. You have a hematoma on your scalp that is caused by a fall or injury, and you also have: ? A headache that gets worse. ? Trouble speaking or understanding speech. ? Weakness. ? A change in alertness or consciousness. These symptoms may be an emergency. Get help right away. Call 911. Do not wait to see if the symptoms will go away. Do not drive yourself to the hospital. This information is not intended to replace advice given to you by your health care provider. Make sure you discuss any questions you have with your health care provider. Document Released: 2004-09-26 Document Updated: 2022-08-07 Document Reviewed: 2022-08-07 [employer] Patient Education ? 2023 [employer] documented in this encounter Plan of Treatment Not on file documented as of this encounter Visit Diagnoses Diagnosis Hematoma of right breast- Primary documented in this encounter Additional Health Concerns Assessment Noted Time PHQ-9 Depression Total Score: 0 03/25/19 20 10:00 AM BRICK MASON documented as of this encounter Care Teams Oncology Transplant Network Manager Relationship Specialty Start Date End Date Brian Mon MD [address] [place] [address] PCP - General Internal Medicine 10/17/23 Ct, Acute Covid At Home Care [place] Digital MEKHI 09/03/19 documented as of this encounter
--- OUTSIDE RECORDS SUMMARY | 2024-02-24 19:42 | XMS_ITS | Encounter Summary ---
Author Organization [facility] Address [address] [place] [address] Phone Care Team Providers Care Pulmonology Technician Name Role Phone Gayla Barker APRN, HARSHA Primary Care Provider Ct, Acute Covid At Home Care Unavailable Marianela vailable Reason for Visit * Reason Comments Medication Refill Encounter Details Date Type Department Care Team (Late st Contact Info) Description 02/05/2022 Refill [facility] - Primary Care - [place] [address] [place] [address] Gayla Barker APRN, CHICK SEXER [address] [place] [address] Medication Refill Social History Tobacco Use Types Packs/Day Years [...] on file Legal Sex Female 10:27 AM FILTER OPERATOR Gender Identity Not on file Sexual Orientation Not on file COVID-19 Exposure Response Date Recorded In the last 10 days, have yo u been in contact with someone who was confirmed or suspected to have Coronavirus/COVID-19? No / Unsure 01/08/2022 8:52 AM FILTER OPERATOR documented as of this encounter Miscellaneous Notes * Telephone Encounter - Adina Flores RN - 02/06/2022 9:31 AM FILTER OPERATOR Medication failed the protocol, provider to review and approve the medication order if appropriate. Requested Prescriptions Pending Prescriptions Disp Refills sertraline (ZOLOFT) 25 MG Tablet [Pharmacy Med Name: Sertraline HCl 25 MG Oral Tablet] 90 Tablet 0 Sig: Take 1 tablet by mouth once daily SSRI (6 Month Refill Only) Protocol Failed - 02/05/2022 3:17 PM Failed - Visit with relevant provider in past 6 months or upcoming 90 days Recent Visits No visits were found meeting these conditions. Showing recent visits within past 182 days and meeting all other requirements Future Appointments No visits were found meeting these conditions. Showing future appointments within next 90 days and meeting all other requirements Failed - Patient has established therapy with SSRI for at least 6 months Passed - No test in the past 12 months or most recent test was negative Passed - No active on record Passed - Has an encounter in the past 6 months with a depression, anxiety, adjustment disorder, OCD, or PTSD visit diagnosis ER OPERATOR documented in this encounter Plan of Treatment Not on file documented as of this encounter Visit Diagnoses Not on filedocumented in this encounter Additional Health Concerns Assessment Noted Time PHQ-9 Depression Total Score: 0 03/25/19 10:00 AM FILTER OPERATOR documented as of this encounter Care Teams Pulmonology Technician Relationship Specialty Start Date End Date Gayla Barker, SUPERVISOR [employer]KE HANDLING, CHICK SEXER [address] [place] [address] PCP - General Advanced Practice Nurse 03/25/19 Ct, Acute Covid At Home Care [place] [employer] MEKHI 09/03/19 documented as of this encounter
--- OUTSIDE RECORDS SUMMARY | 2024-02-24 19:42 | XMS_ITS | Encounter Summary ---
Author Organization [facility] Address [address] [place] [address] Phone Care Team Providers Care Boiler Reliner Name Role Phone Gayla Barker APRN, AUTOMOBILE PARKER Primary Care Provider Ct, Acute Covid At Home Care Unavailable Marianela vailable Reason for Visit * Reason Comments Sore Throat Encounter Details Date Type Department Care Team ([facility] Contact Info) Description 01/08/2022 8:55 AM CLINICAL NURSING INSTRUCTOR [facility] [address] [place] [address] Chitra Kaur APRN, AUTOMOBILE PARKER [address] [place] [address] Sore throat (Primary Dx); Otalgia of both ears Discharge Disposition: Discharged to home or Selfcare [...] on file Legal Sex Female 10:27 AM CLINICAL NURSING INSTRUCTOR Gender Identity Not on file Sexual Orientation Not on file COVID-19 Exposure Response Date Recorded In the last 10 days, have yo u been in contact with someone who was confirmed or suspected to have Coronavirus/COVID-19? No / Unsure 12/05/2022 4:56 PM CDT documented as of this encounter Last Filed Vital Signs Vital Sign Reading Time Taken Comments Blood Pressure 104/66 01/08/2022 9:41 AM CLINICAL NURSING INSTRUCTOR Pulse 70 01/08/2022 9:41 AM CLINICAL NURSING INSTRUCTOR Temperature 36.2 ??C (97.1 ??F) 01/08/2022 9:41 AM CS T Respiratory Rate 16 01/08/2022 9:41 AM CLINICAL NURSING INSTRUCTOR Oxygen Saturation 99% 01/08/2022 9:41 AM CLINICAL NURSING INSTRUCTOR Inhaled Oxygen Concentration - - Weight - - Height - - Body Mass Index - - documented in this encounter Patient Instructions * Attachments The following attachments cannot be sent through Care Everywhere. * Earache Adult (Ecuadorean) documented in this encounter Progress Notes * Jak Whittington, RN - 01/08/2022 8:55 AM CST Carito Madison complains of Sore Throat This is a new problem. The current episode started in the past 7 days. There has been no fever. Associated symptoms include ear pain and headaches. She has had no exposure to strep. She has tried NSAIDs for the symptoms. Today's Review of Systems HENT: Positive for ear pain and sore throat. Neurological: Positive for headaches. ICAL NURSING INSTRUCTOR * Chitra Kaur APRN, AUTOMOBILE PARKER - 01/08/2022 8:55 AM CST Images from the original note were not included. Subjective: Carito Madison is a 31 y.o. female in the clinic for a sick visit today. Patient was brought in by self Historian for the visit is self Symptoms started in the last 1 week Patient/historian reports that the symptoms are not improving. OTC medication that has been taken/given include: nothing She has a history of ear pain. No fevers. Chief complaint, ROS, and all history documented by ancillary staff, and any copy/pasted information were reviewed and verified, with additions or corrections, as appropriate. Available past family, social, medical history was reviewed. Review of Systems Constitutional: Negative for fever. HENT: Positive for ear pain and sore throat. Respiratory: Negative for cough. Objective: Physical Exam Vitals and nursing note reviewed. Constitutional: General: She is not in acute distress. HENT: Right Ear: A middle ear effusion is present. Left Ear: A middle ear effusion is present. Mouth/Throat: Cardiovascular: Rate and Rhythm: Normal rate. Pulmonary: Effort: Pulmonary effort is normal. Breath sounds: Normal breath sounds. Neurological: Mental Status: She is alert. Vitals: 01/08/22 0941 BP: 104/66 Pulse: 70 Resp: 16 Temp: 97.1 ??F (36.2 ??C) TempSrc: Tympanic SpO2: 99% Assessment and Plan See Diagnoses, Orders, Follow-up, and Instructions Diagnoses and all orders for this visit: Sore throat Comments: strep test negative do listerine or salt water garles. likely tonsil stones Orders: - POCT Group A Strep Screen Rapid - POCT Combo Otalgia of both ears Comments: referral to ENT made for chronic ear pain and effusion Orders: - POCT Group A Strep Screen Rapid - POCT Combo - EXTERNAL ENT REFERRAL; Future Care as instructed on AVS If medication was prescribed it was sent to the pharmacy. Take all medication as prescribed. Do not skip a dose and take until completed. Follow up with PCP if the symptoms do not improve Go to the ER if symptoms become severe AVS from today was printed, discussed with patient/family and given to patient/family ICAL NURSING INSTRUCTOR documented in this encounter Miscellaneous Notes * Addendum Note - Jak Whittington RN - 01/08/2022 8:55 AM CSTAddended by: JAK WHITTINGTON on: 01/08/2022 10:48 AM Modules accepted: Orders ICAL NURSING INSTRUCTOR * Addendum Note - Bev Agee CMA - 01/08/2022 8:55 AM CSTAddended by: BEV AGEE on: 01/11/2023 06:46 AM Modules accepted: Orders ICAL NURSING INSTRUCTOR documented in this encounter Plan of Treatment Not on file documented as of this encounter Procedures Procedure Name Priority Date/Time Associated Diagnosis Comments CULTURE, GRP A STREPTOCOCCUS, CULT ONLY Routine 01/08/2022 10:48 AM CLINICAL NURSING INSTRUCTOR Sore throat POCT GROUP A STREP SCREEN RAPID Routine 01/08/2022 9:52 AM CLINICAL NURSING INSTRUCTOR Sore throat Otalgia of both ears POCT SARS ANTIGEN RAMESH/INFLUENZA A & B COMBINATION Routine 01/08/2022 9:49 AM CLINICAL NURSING INSTRUCTOR Sore throat Otalgia of both ears documented in this encounter Results * CULTURE, GRP A STREPTOCOCCUS, CULT ONLY (01/08/2022 10:48 AM CLINICAL NURSING INSTRUCTOR) CULTURE RESULTS NO STREP PYOGENES (GROUP A BETA HEMOLYTIC STREP) ISOLATED AFTER 2 DAYS 01/10/2022 4:39 PM CLINICAL NURSING INSTRUCTOR [facility] Culture SPECIMEN FROM THROAT / Unknown Non-Phlebotomy Collection / Unknown 01/08/2022 10:48 AM CLINICAL NURSING INSTRUCTOR 01/08/2022 10:48 AM CLINICAL NURSING INSTRUCTOR us Chitra Kaur BOILER RELINER, AUTOMOBILE PARKER MICROBIOL OGY - GENERAL ORDERABLES Edited Result - Final [facility] [address] [place] [address], * POCT GROUP A STREP SCREEN RAPID (01/08/2022 9:52 AM CLINICAL NURSING INSTRUCTOR) POC STREP SCRN Presumptive negative POC STREP SCREEN CONTROL Research Nurse Pass 01/08/2022 9:52 AM CLINICAL NURSING INSTRUCTOR us Chitra Kaur APRN, HARSHA POINT OF CARE MARY LOU TING (MANUAL) Final Result * POCT SARS ANTIGEN RAMESH/INFLUENZA A & B COMBINATION (01/08/2022 9:49 AM CLINICAL NURSING INSTRUCTOR) POC SARS ANTIGEN RAMESH Negative Negative POC SARS ANTIGEN RAMESH CONTROL Research Nurse Pass Rapid Influenza A PRESUMPTIVE NEGATIVE FOR THE PRESENCE OF INFLUENZA A ANTIGEN PRESUMPTIVE NEGATIVE FOR THE PRESENCE OF INFLUENZA A ANTIGEN, INDETERMINATE Rapid Influenza B PRESUMPTIVE NEGATIVE FOR THE PRESENCE OF INFLUENZA B ANTIGEN PRESUMPTIVE NEGATIVE FOR THE PRESENCE OF INFLUENZA B ANTIGEN, INDETERMINATE POC INFLUENZA CONTROL Research Nurse Pass Swab NASAL STRUCTURE / Unknown 01/08/2022 9:49 AM CLINICAL NURSING INSTRUCTOR Chitra Kaur APRN, HARSHA POINT OF CARE MARY LOU TING (MANUAL) Final Result documented in this encounter Visit Diagnoses Diagnosis Sore throat- Primary Acute pharyngitis Otalgia of both ears Otalgia, unspecified documented in this encounter Additional Health Concerns Infection Onset Date Last Indicated Resolved Time COVID - 19 01/08/2022 01/08/2022 01/18/2022 12:1 6 AM CLINICAL NURSING INSTRUCTOR COVID - 19 04/25/2022 04/25/2022 05/05/2022 12:1 6 AM CLINICAL NURSING INSTRUCTOR Assessment Noted Time PHQ-9 Depression Total Score: 0 03/25/19 20 10:00 AM CLINICAL NURSING INSTRUCTOR documented as of this encounter Care Teams Boiler Reliner Relationship Specialty Start Date End Date Gayla Barker, ANNIE, AUTOMOBILE PARKER [address] [place] [address] PCP - General Advanced Practice Nurse 03/25/19 Ct, Acute Covid At Home Care [place] [employer] MEKHI 09/03/19 documented as of this encounter
--- OUTSIDE RECORDS SUMMARY | 2024-02-24 19:42 | XMS_ITS | Encounter Summary ---
Author Organization [employer] Care Team Providers Care Associate Professor Of Literacy Name Role Phone Ct, Acute Covid At Home Care Unavailable Marianela judahilable Brian Mon MD Primary Care Provider [phone] Encounter Details Date Type Department Care Team (Latest Contact Info) Description 10/17/2023 Travel Social History Tobacco Use Types Packs/Day [...] on file Legal Sex Female 10:27 AM PROCESS CONTROLLER Gender Identity Not on file Sexual Orientation [...] Total Score: 0 03/25/19 20 10:00 AM PROCESS CONTROLLER documented as of this encounter Care Teams Associate Professor Of Literacy Relationship Specialty Start Date End Date Brian Mon MD [address] [place] [address] PCP - General Internal Medicine 10/17/23 Ct, Acute Covid At Home Care [place] Digital MEKHI 09/03/19 documented as of this encounter
--- OUTSIDE RECORDS SUMMARY | 2024-02-24 19:42 | XMS_ITS | Encounter Summary ---
Author Organization [facility] Address [address] [place] [address] Phone Care Team Providers Care Assessment Services Manager Name Role Phone Gayla Barker APRN, REIMBURSEMENT AUDITOR Primary Care Provider Ct, [facility] Unavailable Marianela vailable Reason for Visit * Reason Comments Cough Encounter Details Date Type Department Care Team ([facility] st Contact Info) Description 12/10/2021 8:45 AM CDT Urgent Care Visit [facility] [address] [place] [address] Chitra Kaur APRN, REIMBURSEMENT AUDITOR [address] [place] [address] Bilateral otitis media with effusion (Primary Dx); Acute non-recurrent maxillary sinusitis; Acute cough Discharge Disposition: Discharged to home or Selfcare [...] on file Legal Sex Female 10:27 AM CORE SHAPER SIDES Gender Identity Not on file Sexual Orientation Not on file COVID-19 Exposure Response Date Recorded In the last 10 days, have yo u been in contact with someone who was confirmed or suspected to have Coronavirus/COVID-19? No / Unsure 12/10/2021 8:43 AM CDT documented as of this encounter Last Filed Vital Signs Vital Sign Reading Time Taken Comments Blood Pressure 98/60 12/10/2021 8:46 AM CDT Pulse 78 12/10/2021 8:46 AM CDT Temperature 36 ??C (96.8 ??F) 12/10/2021 8:46 AM CDT Respiratory Rate 14 12/10/2021 8:46 AM CDT Oxygen Saturation 98% 12/10/2021 8:46 AM CDT Inhaled Oxygen Concentration - - Weight 76.2 kg (168 lb) 12/10/2021 8:46 AM CDT Height - - Body Mass Index 30.73 11/18/2021 8:43 AM CDT documented in this encounter Patient Instructions * Patient Instructions* Chitra Kaur APRN, REIMBURSEMENT AUDITOR - 12/10/2021 8:45 AM CDT Images from the original note were not included. Sinusitis, Adult Sinusitis is inflammation of your sinuses. Sinuses are hollow spaces in the bones around your face.Your sinuses are located: ?? Around your eyes. ?? In the middle of your forehead. ?? Behind your nose. ?? In your cheekbones. Mucus normally drains out of your sinuses. When your nasal tissues become inflamed or swollen, mucus can become trapped or blocked. This allows bacteria, viruses, and fungi to grow, which leads to infection. Most infections of the sinuses are caused by a virus. Sinusitis can develop quickly. It can last for up to 4 weeks (acute) or for more than 12 weeks (chronic). Sinusitis often develops after a cold. What are the causes? This condition is caused by anything that creates swelling in the sinuses or stops mucus from draining. This includes: ?? Allergies. ?? Asthma. ?? Infection from bacteria or viruses. ?? Deformities or blockages in your nose or sinuses. ?? Abnormal growths in the nose (nasal polyps). ?? Pollutants, such as chemicals or irritants in the air. ?? Infection from fungi (rare). What increases the risk? You are more likely to develop this condition if you: ?? Have a weak body defense system (immune system). ?? Do a lot of swimming or diving. ?? Overuse nasal sprays. ?? Smoke. What are the signs or symptoms? The main symptoms of this condition are pain and a feeling of pressure around the affected sinuses.Other symptoms include: ?? Stuffy nose or congestion. ?? Thick drainage from your nose. ?? Swelling and warmth over the affected sinuses. ?? Headache. ?? Upper toothache. ?? A cough that may get worse at night. ?? Extra mucus that collects in the throat or the back of the nose (postnasal drip). ?? Decreased sense of smell and taste. ?? Fatigue. ?? A fever. ?? Sore throat. ?? Bad breath. How is this diagnosed? This condition is diagnosed based on: ?? Your symptoms. ?? Your medical history. ?? A physical exam. ?? Tests to find out if your condition is acute or chronic. This may include: ? Checking your nose for nasal polyps. ? Viewing your sinuses using a device that has a light (endoscope). ? Testing for allergies or bacteria. ? Imaging tests, such as an MRI or CT scan. In rare cases, a bone biopsy may be done to rule out more serious types of fungal sinus disease. How is this treated? Treatment for sinusitis depends on the cause and whether your condition is chronic or acute. ?? If caused by a virus, your symptoms should go away on their own within 10 days. You may be givenmedicines to relieve symptoms. They include: ? Medicines that shrink swollen nasal passages (topical intranasal decongestants). ? Medicines that treat allergies (antihistamines). ? A spray that eases inflammation of the nostrils (topical intranasal corticosteroids). ? Rinses that help get rid of thick mucus in your nose (nasal saline washes). ?? If caused by bacteria, your health care provider may recommend waiting to see if your symptoms improve. Most bacterial infections will get better without antibiotic medicine. You may be given antibiotics if you have: ? A severe infection. ? A weak immune system. ?? If caused by narrow nasal passages or nasal polyps, you may need to have surgery. Follow these instructions at home: Medicines ?? Take, use, or apply [id number] and prescription medicines only as told by your health careprovider. These may include nasal sprays. ?? If you were prescribed an antibiotic medicine, take it as told by your health care provider. Do not stop taking the antibiotic even if you start to feel better. Hydrate and humidify ?? Drink enough fluid to keep your urine pale yellow. Staying hydrated will help to thin your mucus. ?? Use a cool mist humidifier to keep the humidity level in your home above 50%. ?? Inhale steam for 10-15 minutes, 3-4 times a day, or as told by your health care provider. You can do this in the bathroom while a hot shower is running. ?? Limit your exposure to cool or dry air. Rest ?? Rest as much as possible. ?? Sleep with your head raised (elevated). ?? Make sure you get enough sleep each night. General instructions ?? Apply a warm, moist washcloth to your face 3-4 times a day or as told by your health care provider. This will help with discomfort. ?? Wash your hands often with soap and water to reduce your exposure to germs. If soap and water are not available, use hand welder first class. ?? Do not smoke. Avoid being around people who are smoking (secondhand smoke). ?? Keep all follow-up visits as told by your health care provider. This is important. Contact a health care provider if: ?? You have a fever. ?? Your symptoms get worse. ?? Your symptoms do not improve within 10 days. Get help right away if: ?? You have a severe headache. ?? You have persistent vomiting. ?? You have severe pain or swelling around your face or eyes. ?? You have vision problems. ?? You develop confusion. ?? Your neck is stiff. ?? You have trouble breathing. Summary ?? Sinusitis is soreness and inflammation of your sinuses. Sinuses are hollow spaces in the bones around your face. ?? This condition is caused by nasal tissues that become inflamed or swollen. The swelling traps orblocks the flow of mucus. This allows bacteria, viruses, and fungi to grow, which leads to infection. ?? If you were prescribed an antibiotic medicine, take it as told by your health care provider. Do not stop taking the antibiotic even if you start to feel better. ?? Keep all follow-up visits as told by your health care provider. This is important. This information is not intended to replace advice given to you by your health care provider. Make sure you discuss any questions you have with your health care provider. Document Revised: 07/15/2018 Document Reviewed: 07/15/2018 [employer] Patient Education ?? 2021 [employer]. documented in this encounter Progress Notes * Kwaku Carvajal CMA - 12/10/2021 8:45 AM CDT Pt presents today with concerns of a cough and right otalgia. Pt has been symptomatic for two weeks. * Chitra Kaur APRN, CNP - 12/10/2021 8:45 AM CDT Subjective: Carito Madison is a 31 y.o. female in the clinic for a sick visit today. Patient was brought in by self Historian for the visit is self Symptoms started in the last 2+ weeks Patient/historian reports that the symptoms are worsening. OTC medication that has been taken/given include: tylenol Chief complaint, ROS, and all history documented by ancillary staff, and any copy/pasted information were reviewed and verified, with additions or corrections, as appropriate. Available past family, social, medical history was reviewed. Review of Systems HENT: Positive for congestion, ear pain, rhinorrhea and sinus pain. Respiratory: Positive for cough. Objective: Physical Exam Vitals and nursing note reviewed. Constitutional: General: She is not in acute distress. HENT: Right Ear: A middle ear effusion is present. Left Ear: A middle ear effusion is present. Nose: Congestion present. Right Sinus: Maxillary sinus tenderness present. Left Sinus: Maxillary sinus tenderness present. Mouth/Throat: Pharynx: No posterior oropharyngeal erythema. Cardiovascular: Rate and Rhythm: Normal rate. Pulmonary: Effort: Pulmonary effort is normal. Breath sounds: Normal breath sounds. Neurological: Mental Status: She is alert. Vitals: 12/10/21 0846 BP: 98/60 BP Location: Right Arm BP Position: Sitting BP Cuff Size: Regular Pulse: 78 Resp: 14 Temp: 96.8 ??F (36 ??C) TempSrc: Temporal SpO2: 98% Weight: 168 lb (76.2 kg) Assessment and Plan See Diagnoses, Orders, Follow-up, and Instructions Diagnoses and all orders for this visit: Bilateral otitis media with effusion Acute non-recurrent maxillary sinusitis - azithromycin (Zithromax Z-Maximilian) 250 MG Tablet; 2 tab(s) daily for 1 day, then 1 tab(s) daily for days 2-5. Acute cough - promethazine-dextromethorphan (PROMETHAZINE-DM) 6.25-15 MG/5ML Syrup; Take 5 mL by mouth every 4 hours as needed for Cough. Care as instructed on AVS If medication was prescribed it was sent to the pharmacy. Take all medication as prescribed. Do not skip a dose and take until completed. Follow up with PCP if the symptoms do not improve Go to the ER if symptoms become severe AVS from today was printed, discussed with patient/family and given to patient/family documented in this encounter Plan of Treatment Not on file documented as of this encounter Visit Diagnoses Diagnosis Bilateral otitis media with effusion- Primary Nonsuppurative otitis media, not specified as acute or chronic Acute non-recurrent maxillary sinusitis Acute cough documented in this encounter Additional Health Concerns Assessment Noted Time PHQ-9 Depression Total Score: 0 03/25/19 10:00 AM CORE SHAPER SIDES documented as of this encounter Care Teams Assessment Services Manager Relationship Specialty Start Date End Date Gayla Barker APRN, CNP [address] [place] [address] PCP - General Advanced Practice Nurse 03/25/19 Ct, [facility] [place] [facility] 09/03/19 documented as of this encounter
--- OUTSIDE RECORDS SUMMARY | 2024-02-24 19:42 | XMS_ITS | Encounter Summary ---
Author Organization [facility] Address [address] [place] [address] Phone Care Team Providers Care Asphalt Patcher Name Role Phone Gayla Barker APRN, CNP Primary Care Provider Ct, [facility] Home [facility] Unavailable Marianela vailable Reason for Referral * Radiology Services (Routine) - Closed Specialty Diagnoses / Procedures Referred By Jud freeman Referred To Contact Radiology Diagnoses Uterine leiomyoma, unspecified location Procedures US PELVIS COMPLETE WITH TRANSVAGINAL Jayda Adamson APRN, CNP [address] [place] [address] Phone: tel: fax: Referral ID Status Reason Start Date Expiration Date Visits Re quested Visits Authorized [id number] Closed 05/24/2022 1 1 Encounter Details Date Type Department Care Team (Late st Contact Info) Description 05/24/2022 Transcribe Orders [facility] Central Scheduling [address] [place] [address] Jayda Adamson APRN, CNP [address] [place] [address] Uterine leiomyoma, unspecified location (Primary Dx) Social History Tobacco Use Types Packs/Day Years [...] on file Legal Sex Female 10:27 AM 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 No / Unsure 04/25/2022 7:14 AM PERISHABLE FRUIT INSPECTOR documented as of this encounter Plan of Treatment Scheduled Orders Name Type Priority Associated Diagnoses Orde r Schedule US PELVIS COMPLETE WITH TRANSVAGINAL Imaging Routine Uterine leiomyoma, unspecified location Expected: 05/24/2022, Expires: 05/25/2023 documented as of this encounter Visit Diagnoses Diagnosis Uterine leiomyoma, unspecified location- Primary documented in this encounter Additional Health Concerns Assessment Noted Time PHQ-9 Depression Total Score: 0 03/25/19 20 10:00 AM PERISHABLE FRUIT INSPECTOR documented as of this encounter Care Teams Asphalt Patcher Relationship Specialty Start Date End Date Gayla Barker, FUR TANNER, GENERAL FOREMAN [address] [place] [address] PCP - General Advanced Practice Nurse 03/25/19 Ct, [facility] [place] [facility] [place] 09/03/19 documented as of this encounter
--- OUTSIDE RECORDS SUMMARY | 2024-02-24 19:42 | XMS_ITS | Encounter Summary ---
Author Organization [facility] Address [address] [place] [address] Phone Care Team Providers Care Candy Cutter Hand Name Role Phone Gayla Barker APRN, CNP Primary Care Provider Ct, [facility] Unavailable Marianela vailable Reason for Referral * Radiology Services (Routine) - Closed Specialty Diagnoses / Procedures Referred By Contac t Referred To Contact Radiology Diagnoses Mass of left breast, unspecified quadrant Procedures LEONID US BREAST LIMITED ROMMEL Jayda Adamson APRN, CNP [address] [facility] [address] [place] [address] Phone: tel: fax: Referral ID Status Reason Start Date Expiration Date Visits Re quested Visits Authorized [id number] Closed 05/26/2022 1 1 * Radiology Services (Routine) - Closed Specialty Diagnoses / Procedures Referred By Contac t Referred To Contact Radiology Diagnoses Mass of left breast, unspecified quadrant Procedures LEONID DIAG BILATERAL DIGITAL W CAD Jayda Adamson APRN, CNP [address] [place] [address] Phone: tel: fax: Referral ID Status Reason Start Date Expiration Date Visits Re quested Visits Authorized [id number] Closed 05/26/2022 1 1 Encounter Details Date Type Department Care Team (Late st Contact Info) Description 05/26/2022 Transcribe Orders [facility] Central Scheduling [address] [place] [address] Jayda Adamson APRN, OPERATIONS CONTROLLER [address] [facility] [address] [place] [address] Mass of left breast, unspecified quadrant (Primary Dx) Social History Tobacco Use Types [...] on file 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 Sex 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 Gender Identity Not on file Sexual Orientation Not on file documented as of this encounter Plan of Treatment Scheduled Orders Name Type Priority Associated Diagnoses Orde r Schedule LEONID DIAG BILATERAL DIGITAL W CAD Imaging Routine Mass of left breast, unspecified quadrant Expected: 05/26/2022, Expires: 05/27/2023 LEONID US BREAST LIMITED ROMMEL Imaging Routine Mass of left breast, unspecified quadrant Expected: 05/26/2022, Expires: 05/27/2023 documented as of this encounter Visit Diagnoses Diagnosis Mass of left breast, unspecified quadrant- Primary documented in this encounter Additional Health Concerns Assessment Noted Time PHQ-9 Depression Total Score: 0 03/25/19 20 10:00 AM COLLEGE FOOTBALL COACH documented as of this encounter Care Teams Candy Cutter Hand Relationship Specialty Start Date End Date Gayla Barker SURG PHYSICIAN ASST, OPERATIONS CONTROLLER [address] [place] [address] PCP - General Advanced Practice Nurse 03/25/19 Ct, [facility] [place] [facility] [place] 09/03/19 documented as of this encounter
--- OUTSIDE RECORDS SUMMARY | 2024-02-24 19:42 | XMS_ITS | Encounter Summary ---
Author Organization [facility] Address [address] [facility] [place] [address] Phone Care Team Providers Care Prepared Foods Service Team Member Name Role Phone Gayla Barker APRN, OIL CHANGER Primary Care Provider Ct, [facility] Home [facility] Unavailable Marianela vailable Reason for Visit * Reason Onset Date Comments Fatigue 05/15/2022 Encounter Details Date Type Department Care Team (Late st Contact Info) Description 05/15/2022 Nurse Triage [facility] Call Center [address] [place] [address] Gayla Barker, ANNIE, OIL CHANGER [address] [place] [address] Fatigue Social History Tobacco Use Types Packs/Day Years [...] on file Legal Sex Female 10:27 AM FOOD RUNNER Gender Identity Not on file Sexual Orientation Not on file COVID-19 Exposure Response Date Recorded In the last 10 days, have yo u been in contact with someone who was confirmed or suspected to have Coronavirus/COVID-19? No / Unsure 04/25/2022 7:14 AM FOOD RUNNER documented as of this encounter Miscellaneous Notes * Telephone Encounter - Margarita Phelan RN - 05/15/2022 4:20 PM CDT Situation: Fatigue Background: Ongoing two weeks ago Reports known iron deficiency and lupus Started on Ozempic a few weeks ago by OBGYN Assessment: -intermittent dizziness but not currently dizzy -feels 'as tired as I did when I was in my first trimester' -denies trouble breathing or fainting -denies vomiting, diarrhea or any excessive bleeding -patient is concerned that the newly prescribed Ozempic might be causing side effects related to altered kidney function, fatigue, etc Recommendation: Evaluation in office today. To be seen in office, directed to VC/PC/UCC due to no office availability. Patient refuses to go to [facility] today due to schedule but states she will seek care at [facility] tomorrow. Reason for Disposition ??? MODERATE weakness (i.e., interferes with work, school, normal activities) and cause unknown (Exceptions: Weakness with acute minor illness, or weakness from poor fluid intake.) Protocols used: WEAKNESS (GENERALIZED) AND [id number] documented in this encounter Plan of Treatment Not on file documented as of this encounter Visit Diagnoses Not on filedocumented in this encounter Additional Health Concerns Assessment Noted Time PHQ-9 Depression Total Score: 0 03/25/19 10:00 AM FOOD RUNNER documented as of this encounter Care Teams Prepared Foods Service Team Member Relationship Specialty Start Date End Date Gayla Barker, JEWEL OLIVING MACHINE OPERATOR, OIL CHANGER [address] [place] [address] PCP - General Advanced Practice Nurse 03/25/19 Ct, [facility] [place] [employer] [place] 09/03/19 documented as of this encounter
--- OUTSIDE RECORDS SUMMARY | 2024-02-24 19:42 | XMS_ITS | Encounter Summary ---
Author Organization [facility] Care Team Providers Care Harmonica Maker Name Role Phone Ct, Acute [facility] At Home Care Unavailable Marianela judahilable Brian Mon MD Primary Care Provider [phone] Encounter Details Date Type Department Care Team (Latest Contact Info) Description 12/23/2023 Travel Social History Tobacco Use Types Packs/Day [...] on file Legal Sex Female 10:27 AM WOOD HANDLER Gender Identity Not on file Sexual Orientation Not on file documented as of this encounter Plan of Treatment Not on file documented as of this encounter Visit Diagnoses Not on filedocumented in this encounter Additional Health Concerns Assessment Noted Time PHQ-9 Depression Total Score: 0 03/25/19 20 10:00 AM WOOD HANDLER documented as of this encounter Care Teams Harmonica Maker Relationship Specialty Start Date End Date Brian Mon MD [address] [place] [address] PCP - General Internal Medicine 10/17/23 Ct, [facility] [place] 09/03/19 documented as of this encounter
--- OUTSIDE RECORDS SUMMARY | 2024-02-24 19:42 | XMS_ITS | Encounter Summary ---
Author Organization [facility] Address [address] [place] [address] Phone Care Team Providers Care Roll Up Guider Operator Name Role Phone Gayla Barker APRN, HARSHA Primary Care Provider Ct, Acute [facility] Home [facility] Unavailable Marianela vailable Reason for Visit * Reason Comments Medication Refill Encounter Details Date Type Department Care Team (Late st Contact Info) Description 06/11/2022 Refill [facility] - Primary Care - [place] [address] [place] [address] Gayla Barker APRN, MALL MANAGER [address] [place] [address] Medication Refill Social History Tobacco [...] on file Legal Sex Female 10:27 AM DISTRICT ADMINISTRATIVE ASSISTANT Gender Identity Not on file Sexual Orientation Not on file COVID-19 Exposure Response Date Recorded In the last 10 days, have yo u been in contact with someone who was confirmed or suspected to have Coronavirus/COVID-19? No / Unsure 06/08/2022 8:17 PM CDT documented as of this encounter Miscellaneous Notes * Telephone Encounter - Rose Mary Hinton RN - 06/12/2022 7:47 AM CDT Medication failed the protocol, provider to review and approve the medication order if appropriate. Requested Prescriptions Pending Prescriptions Disp Refills sertraline (ZOLOFT) 25 MG Tablet [Pharmacy Med Name: Sertraline HCl 25 MG Oral Tablet] 90 Tablet 0 Sig: Take 1 tablet by mouth once daily [facility] (6 Month Refill Only) Protocol Failed - 06/11/2022 10:38 AM Failed - Has an encounter in the past 6 months with a depression, anxiety, adjustment disorder, OCD, or PTSD visit diagnosis Passed - No test in the past 12 months or most recent test was negative Passed - No active on record Passed - Visit with relevant provider in past 6 months or upcoming 90 days Recent Visits Date Type Provider Dept 03/06/22 Office Visit Brian Mon MD [facility] Showing recent visits within past 182 days and meeting all other requirements Future Appointments No visits were found meeting these conditions. Showing future appointments within next 90 days and meeting all other requirements Passed - Patient has established therapy with [facility] for at least 6 months documented in this encounter Plan of Treatment Not on file documented as of this encounter Visit Diagnoses Not on filedocumented in this encounter Additional Health Concerns Assessment Noted Time PHQ-9 Depression Total Score: 0 03/25/19 10:00 AM DISTRICT ADMINISTRATIVE ASSISTANT documented as of this encounter Care Teams Roll Up Guider Operator Relationship Specialty Start Date End Date Gayla Barker, WAREHOUSING TECHNICIAN, MALL MANAGER [address] [place] [address] PCP - General Advanced Practice Nurse 03/25/19 Ct, [facility] [place] [employer] [facility] 09/03/19 documented as of this encounter
--- OUTSIDE RECORDS SUMMARY | 2024-02-24 19:42 | XMS_ITS | Encounter Summary ---
Author Organization [facility] Address [address] [place] [address] Phone Care Team Providers Care Health Plan Advisor Name Role Phone Gayla Barker APRN, CNP Primary Care Provider Ct, [facility] Unavailable Marianela vailable Reason for Referral * Radiology Services (Routine) - Closed Specialty Diagnoses / Procedures Referred By Jud freeman Referred To Contact Radiology Diagnoses Uterine leiomyoma, unspecified location Procedures US PELVIS COMPLETE WITH TRANSVAGINAL Jayda Adamson APRN, CNP [address] [place] [address] Phone: tel: fax: Referral ID Status Reason Start Date Expiration Date Visits Re quested Visits Authorized [id number] Closed 05/24/2022 1 1 Encounter Details Date Type Department Care Team (Late st Contact Info) Description 05/24/2022 Transcribe Orders [facility] Admitting [address] [place] [address] Jayda Adamson APRN, CNP [address] [place] [address] Uterine leiomyoma, unspecified location (Primary Dx) Social [...] on file Legal Sex Female 10:27 AM BEAUTY SALES ADVISOR Gender Identity Not on file Sexual Orientation Not on file COVID-19 Exposure Response Date Recorded In the last 10 days, have yo u been in contact with someone who was confirmed or suspected to have Coronavirus/COVID-19? No / Unsure 04/25/2022 7:14 AM BEAUTY SALES ADVISOR documented as of this encounter Plan of [...] Total Score: 0 03/25/19 20 10:00 AM BEAUTY SALES ADVISOR documented as of this encounter Care Teams Health Plan Advisor Relationship Specialty Start Date End Date Gayla Barker, INTEGRATED LOGISTICS SUPPORT MANAGER, ATTENDANT [employer] [address] [place] [address] PCP - General Advanced Practice Nurse 03/25/19 Ct, [facility] [place] [employer]KHI 09/03/19 documented as of this encounter
--- OUTSIDE RECORDS SUMMARY | 2024-02-24 19:42 | XMS_ITS | Clinical Summary ---
Author Organization [facility] Address [address] [place] [address] Care Team Providers Care Chemical Process Analyst Name Role Phone Ct, Acute [facility] Home [facility] Unavailable Marianela Brian Chaudhari MD Primary Care Provider [phone] Allergies Active Allergy Reactions Criticality Noted Date Comments Amoxicillin Rash 01/31/2020 Clindamycin Rash 06/25/2021 Methylprednisolone Anaphylaxis 03/25/2019 Metoclopramide Other (see Comments) Low 09/06/2020 Medications hydroxychloroqu ine (PLAQUENIL) 200 MG Tablet Take 1 Tab by mouth daily. 90 Tab 3 0 Active predniSONE (DELTASONE) 5 MG Tablet 1 Active OMEPRAZOLE PO Take 20 mg by mouth daily. Active valACYclovir (VALTREX) 500 MG Tablet Take 500 mg by mouth daily. 2 Active benzonatate (TESSALON) 100 MG CapsuleIndicati ons:Acute cough Take 1 Capsule by mouth 3 times daily as needed for Cough. 30 Capsule 3 Active Additional Information Patient not taking.Reported on 05/15/2022 Semaglutide (OZEMPIC, 0.25 OR 0.5 MG/DOSE, SC) by Subcutaneous route. Active tobramycin (Tobrex) 0.3 % Solution Place 1-2 Drops in right eye every 4 hours. 5 mL 3 Active sertraline (ZOLOFT) 25 MG Tablet Take 1 tablet by mouth once daily 90 Tablet 3 Active ondansetron (ZOFRAN-ODT) 4 MG TABLET DISPERSIBLE Take 1 Tablet by mouth every 8 hours as needed for Nausea - 1st line. 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 Her ADHD is likely contributing to her impulsivity and irritability. We discussed how stimulant medications for ADHD are often not used during due to the risks. Stimulant medications might increase the risk of low weight, premature , and stimulant withdrawal symptoms upon delivery. It is not known what the long-term effects are of exposure to stimulant medications while in utero or as a . She is happy to defer resuming stimulants until . The patient is doing well in her job and it sounds like it plays to her strengths. She is not planning to return to school at this time. Generalized anxiety disorder 06/15/2020 Overview (07/06/2021): Ms spence reports severe anxiety and near panic in this thus far. This is not a new issue for her, but it has significantly worsened in . S/p counseling at initial visit 12/27/2020 Still with anxiety regarding delivery. We discussed she can request short term anxiolytic after baby is delivered. Offered music in OR which she was already aware and would desire. Plan: -Prescribed zoloft -psych referral Last Assessment & Plan: Ms. Spence is intermittently taking her Zoloft. We stressed the importance of continuous use for maximal benefit, especially in preparation for possible mood disorder exacerbations in the period. Secondary adrenal insufficiency 06/03/2020 Overview (07/06/2021): Carito has a history of possible secondary adrenal insufficiency 2/2 chronic steroid use for her lupus. She is currently on prednisone 5 mg for her lupus. She was advised to transition to hydrocortisone or higher dose prednisone by endocrinology during her and stress-dose steroids were discussed. S/p counseling at initial visit [ ] Endocrinology appt scheduled for 12/16 Bilateral chronic serous otitis media 03/31/2020 Adrenal insufficiency 03/04/2020 Adrenal insufficiency 03/04/2020 Overview (07/06/2021): Suspected secondary adrenal insufficiency- Current regimen: 7.5 mg daily - Delivery plan (per Dr. Cortes oil rig driller): IV infusion of hydrocortisone 200 mg/24 hours and 15 mg/daily of prednisone for the following 48 hours. After that, can decrease the dose to 5 mg daily. Last Assessment & Plan: Endocrinology notes reviewed. Prednisone dose was increased on 11/30 to 7.5 mg/day. Plan for stress dose steroids intradelivery reviewed. 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 Also having diarrhea, N/V. Will schedule EGD and colonoscopy. BMI 29.0-29.9,adult 07/16/2019 Diarrhea 07/16/2019 Overview (07/25/2019): Added automatically from request for surgery [id number] Last Assessment & Plan: Pt says has at least 10 BM's daily. She says sometimes she wakes up at night with diarrhea as well. She said eating definitely triggers a BM and has to have urgent diarrhea no matter what she eats. CT done at an ER visit a few months ago showed possible colitis. She has lupus but denies hx of IBD. She did say that her paternal and maternal grandfathers both had colon cancer in their 70's. Will schedule colonoscopy. She was given bentyl. Can use this prior to meals to see if this will help her eat. Drink plenty of fluid. Epigastric pain 07/16/2019 Overview (07/25/2019): Added automatically from request for surgery [id number] Gastroesophageal reflux disease 07/16/2019 Overview (07/25/2019): Added automatically from request for surgery [id number] Liver lesion 07/16/2019 Overview (07/25/2019): Last Assessment & Plan: CT back in Dec 2018 showed multiple small liver lesions and CT done yesterday showed one small 11mm lesion on liver. Will get liver US to further evaluate. Recent CMP showed normal LFT's. Nausea and vomiting 07/16/2019 Overview (07/25/2019): Added automatically from request for surgery [id number] Last Assessment & Plan: Ongoing for several weeks. Occurs mostly after eating. She can have severe nausea and sometimes vomits. Pt did say that vomiting is mostly self induced as a way to try and get herself to feel better. She denies blood or coffee ground emesis. Scheduled EGD. Spontaneous 05/24/2019 Herpes genitalis 01/29/2019 Overview (03/25/2019): Daily suppressive therapy Laceration of flexor muscle, fascia and tendon of right little finger at wrist and hand level, initial encounter 12/06/2018 Pain in joint 07/11/2018 Myalgia, unspecified site 07/11/2018 Systemic lupus erythematosus 07/11/2018 Weakness 07/11/2018 Encounters Date Type Department Care Team Description 12/23/2023 10:43 AM CDT - 12/23/2023 11:10 AM CDT Emergency [facility] Emergency [address] [place] [address] Barbara, Gayla Rangel, CARIDAD Hematoma of right breast Discharge Disposition: Discharged to home or Selfcare 12/23/2023 Travel from Last 3 Months Immunizations Immunization Administration Dates Next Due TDAP Vaccine 11/23/2020,12/01/2018 Family History Medical History Relation Name Comments Heart Attack Father Cancer Maternal Uncle Diabetes Mother Hypertension Paternal Grandfather Relation Name Status Comments Father Maternal Uncle Alive Mother Paternal Grandfather Social History Tobacco Use Types Packs/Day Years [...] on file Legal Sex Female 10:27 AM CONDUCTOR FREIGHT Gender Identity Not on file Sexual Orientation [...] Mass Index 31.53 12/23/2023 10:47 AM CDT Plan of Treatment Health Maintenance Due Date Last Done Comments Hepatitis B Immunization (1 of 3 - 19+ 3-dose series) 05/11/2011 SARS-COV-2 Immunization (3 - Pfizer risk series) 11/09/2020 10/12/2020, 05/20/2020 Pap Smear 06/01/2023 05/31/2020, 01/29/2019 Influenza Immunization (#1) 2023 Cervical Cancer Screening (CCS) 03/22/2028 HPV/Cotest 03/22/2028 03/22/2023 Td Immunization Every 10 Years (Adults With 1 Tdap) 11/23/2030 11/23/2020, 12/01/2018 Respiratory Syncytial Virus (RSV) Immunization (Adult) (1 - 1-dose 75+ series) 05/11/2067 Hepatitis C Virus (HCV) Screening Completed 10/22/2019, 10/08/2018 DTaP/Tdap/Td Immunization Discontinued 2020, 12/01/2018 Meningococcal Immunization (ACWY) Aged Out No longer eligible based on patient's age to complete this topic Pneumococcal Immunization Combined Aged Out No longer eligible based on patient's age to complete this topic Rotavirus Immunization Aged Out No lo nger eligible based on patient's age to complete this topic Procedures Procedure Name Priority Date/Time Associated Diagnosis Comments HEPATITIS PANEL ACUTE (AHP) Routine 10/22/2019 8:23 AM CDT Fatigue, unspecified type Dizziness Non-intractable vomiting with nausea, unspecified vomiting type from Last 3 Months or Most Recently Relevant to Health Maintenance Results * HEPATITIS PANEL ACUTE (AHP) (10/22/2019 8:23 AM CDT) HEPATITIS A IGM ANTIBODY NON DETECTED NON DETECTED 10/23/2019 10:54 AM CDT [facility] Comment: IGM Antibodies to HAV not detected. ??Does not exclude early acute or recovered HAV infection. HEP B CORE AB (IGM) NON DETECTED NON DETECTED 10/23/2019 10:54 AM CDT [facility] Comment:IGM anti-HBC not det ected. Does not exclude the possibility of exposure to or infection with HBV. HEPATITIS B SURFACE ANTIGEN NON DETECTED NON DETECTED 10/23/2019 10:54 AM CDT [facility] Comment: A nonreactive test result does not exclude the possibility of exposure to or infection with Hepatitis B virus. A nonreactive test result in individuals with prior exposure to hepatitis B may be due to antigen levels below the detection limit of this assay or lack of antigen reactivity to the antibodies in this assay. This is a corrected result. Previous result was CONFIRMATION REQUIRED on 10/22/2019 at 1627 CDT hepatitis C antibody 0.08 <1 S/CO 10/23/2019 10:54 AM CDT [facility] Comment: Signal/Cutoff ratio ??< 0.79 is Nondetected Signal/Cutoff ratio 0.80-0.99 is Grayzone Signal/Cutoff ratio > 0.99 is Detected Supplemental assays are recommended if signal/cutoff ratio is >/=1.00. ??Signal/cutoff ratio result >/= 5.00 is 97% predictive of positivity for recombinant immunoblot assay (RIBA) and will be reported to the [place] Department of Public Health as required. Blood Venipuncture / Unknown 10/22/2019 8:23 AM CDT 10/22/2019 8:23 AM CDT Narrative [facility] - 10/23/2019 10:54 AM CDT Corrected report called to [facility]- Hardik BACK in Chemistry notified that result is nondetected. ??ABZ us Gayla Barker APRN, CNP HEMATOLOGY ORDERABLES E dited Result - Final [facility] [address] [place] [address], [place] from Last 3 Months or Most Recently Relevant to Health Maintenance Care Teams Chemical Process Analyst Relationship Specialty Start Date End Date Brian Mon MD [address] [place] [address] PCP - General Internal Medicine 10/17/23 Ct, [facility] [place] [employer] 09/03/19
--- OUTSIDE RECORDS SUMMARY | 2024-02-24 19:42 | XMS_ITS | Encounter Summary ---
Author Organization [facility] Address [address] [place] [address] Phone Care Team Providers Care Telemarketing Manager Name Role Phone Gayla Barker APRN, PRELOAD SUPERVISOR Primary Care Provider Ct, Acute Covid At Home Care Unavailable Marianela vailable Reason for Visit * Reason Comments Urinary Frequency Encounter Details Date Type Department Care Team (Late st Contact Info) Description 12/05/2022 5:05 PM CDT - 12/05/2022 5:37 PM CDT Emergency [facility] Emergency [address] [place] [address] Discharge Disposition: LWBS Social History Tobacco Use Types Packs/Day Years [...] on file Legal Sex Female 10:27 AM INDEX CLERK Gender Identity Not on file Sexual Orientation Not on file COVID-19 Exposure Response Date Recorded In the last 10 days, have rainer gandhi been in contact with someone who was confirmed or suspected to have Coronavirus/COVID-19? No / Unsure 12/05/2022 4:56 PM CDT documented as of this encounter Last Filed Vital Signs Vital Sign Reading Time Taken Comments Blood Pressure 119/75 12/05/2022 4:56 PM CDT Pulse 81 12/05/2022 4:56 PM CDT Temperature 36.3 ??C (97.3 ??F) 12/05/2022 4 :56 PM CDT Respiratory Rate 16 12/05/2022 4:56 PM CDT Oxygen Saturation 98% 12/05/2022 4:5 9 PM CDT Inhaled Oxygen Concentration - - Weight 79.4 kg (175 lb) 12/05/2022 4:56 PM CDT BMI incorrect due to technical error Height 154.9 cm (5' 1 ) 12/05/2022 4:56 PM CDT BMI incorrect due to technical error Body Mass Index 33.07 12/05/2022 4:56 PM CDT documented in this encounter Medications [...] of this encounter ED Notes * Remedios Valenzuela RN - 12/05/2022 5:36 PM CDT Pt told ctrs that she was leaving. LWBS. * Nicole Drake RN - 12/05/2022 4:59 PM CDT Patient presents ambulatory to triage with complaints of urinary frequency, headache and right sided back pain that has been ongoing for 2 to 3 weeks. Denies any known fevers. Currently afebrile. History of Lupus. documented in this encounter Plan of Treatment Not on file documented as of this encounter Procedures Procedure Name Priority Date/Time Associated Diagnosis Comments CBC WITH AUTO DIFFERENTIAL STAT 12/05/2022 5:02 PM CDT CMP (COMPREHENSIVE METABOLIC PANEL) STAT 12/05/2022 5:02 PM CDT COMPLETE BLOOD COUNT (CBC) WITH DIFF STAT 12/05/2022 5:02 PM CDT documented in this encounter Results * (ABNORMAL) CBC with Auto Differential (12/05/2022 5:02 PM CDT) WBC 10.06 4.00 - 12.00 10(3)/mcL 12/05/2022 5:57 PM CDT [facility] RBC 4.31 3.80 - 5.30 10(6)/mcL 12/05/2022 5:57 PM CDT [facility] HEMOGLOBIN (HGB) 10.1(L) 12.0 - 15.8 g/dL 12/05/2022 5:57 PM CDT [facility] HEMATOCRIT (HCT) 33.8(L) 36.0 - 47.0 % 12/05/2022 5:57 PM CDT [facility] MCV 78.4(L) 82.0 - 96.0 fL 12/05/2022 5:57 PM CDT [facility] MCH 23.4(L) 26.0 - 34.0 pg 12/05/2022 5:57 PM CDT [facility] MCHC 29.9(L) 31.0 - 36.0 g/dL 12/05/2022 5:57 PM CDT [facility] PLATELET COUNT 320 140 - 440 10(3)/mcL 12/05/2022 5:57 PM CDT [facility] RDW 15.4 11.8 - 15.5 % 12/05/2022 5:57 PM CDT [facility] MPV 10.1 9.7 - 12.4 fL 12/05/2022 5:57 PM CDT [facility] NEUTROPHILS 84.7(H) 47.0 - 73.0 % 12/05/2022 5:57 PM CDT [facility] LYMPHOCYTES 10.2(L) 18.0 - 42.0 % 12/05/2022 5:57 PM CDT [facility] MONOCYTES 4.5 4.0 - 12.0 % 12/05/2022 5:57 PM CDT [facility] EOSINOPHILS 0.2 0.0 - 5.0 % 12/05/2022 5:57 PM CDT [facility] BASOPHILS 0.4 0.0 - 1.0 % 12/05/2022 5:57 PM CDT [facility] ABSOLUTE NEUTROPHILS 8.52(H) 1.60 - 7.70 10(3)/mcL 12/05/2022 5:57 PM CDT [facility] ABSOLUTE LYMPHOCYTES 1.03(L) 1.30 - 3.20 10(3)/mcL 12/05/2022 5:57 PM CDT [facility] ABSOLUTE MONOCYTES 0.45 0.20 - 1.00 10(3)/mcL 12/05/2022 5:57 PM CDT [facility] ABSOLUTE EOSINOPHIL 0.02 0.00 - 0.40 10(3)/mcL 12/05/2022 5:57 PM CDT [facility] ABSOLUTE BASOPHILS 0.04 0.00 - 0.10 10(3)/mcL 12/05/2022 5:57 PM CDT [facility] NRBC PER 100 WBC 0 12/06/19 5:57 PM CDT [facility] RESULTS ARE CONSISTENT WITH PERIPHERAL SMEAR REVIEW Yes 12/05/2022 5:57 PM CDT [facility] POIKILOCYTOSIS 1+ 12/05/2022 5:57 PM CDT [facility] ELLIPTOCYTES Present 12/05/2022 5:57 PM CDT [facility] Blood Venipuncture / Unknown 12/05/2022 5:02 PM CDT 12/05/2022 5:25 PM CDT us Mohit Saldaña MD HEMATOLOGY ORDERABLES Final Result [facility] [address] [place] [address] * Comprehensive Metabolic Panel (Cmp) [id number] (12/05/2022 5:02 PM CDT) SODIUM 139 136 - 145 mmol/L 12/05/2022 6:01 PM CDT [facility] POTASSIUM 3.9 3.5 - 5.1 mmol/L 12/05/2022 6:01 PM CDT [facility] CHLORIDE 105 98 - 107 mmol/L 12/05/2022 6:01 PM CDT [facility] CO2, VENOUS 25 22 - 30 mmol/L 12/05/2022 6:01 PM CDT [facility] ANION GAP 12.9 <18.0 mmol/L 12/05/2022 6:01 PM CDT [facility] GLUCOSE 97 70 - 99 mg/dL 12/05/2022 6:01 PM CDT [facility] BUN 8 5 - 18 mg/dL 12/05/2022 6:01 PM CDT [facility] CREATININE, BLOOD 0.69 0.60 - 1.00 mg/dL 12/05/2022 6:01 PM [facility] BUN/CREATININE RATIO 12 12 - 20 ratio 12/05/2022 6:01 PM [facility] TOTAL PROTEIN 7.5 6.3 - 8.2 g/dL 12/05/2022 6:01 PM [facility] ALBUMIN 4.2 3.5 - 5.0 g/dL 12/05/2022 6:01 PM [facility] A/G RATIO 1.3 1.0 - 2.2 12/05/2022 6:01 PM [facility] CALCIUM 9.7 8.7 - 10.5 mg/dL 12/05/2022 6:01 PM [facility] T BILI 0.4 0.2 - 1.2 mg/dL 12/05/2022 6:01 PM [facility] SGOT (AST) 13 5 - 34 U/L 12/05/2022 6:01 PM [facility] SGPT (ALT) 9 0 - 55 U/L 12/05/2022 6:01 PM [facility] ALKALINE PHOSPHATASE 47 40 - 150 U/L 12/05/2022 6:01 PM [facility] GFR, ESTIMATED >60 >=60 12/05/2022 6:01 PM [facility] Comment: Creatinine Clearance is the preferred criteria for selecting drug dose adjustments in renally impaired patients. ??The GFR is provided as additional pertinent clinical information. GFR is reported in mL/min/1.73 sq m. Calculation based on the Chronic Kidney Disease Epidemiology Collaboration (CKD- EPI) equation refit without adjustment for race. GFR, EST. >60 >=60 023 6:01 PM [facility] GFR, EST. NONAFRICAN >60 >=60 12/05/2022 6:01 PM [facility] Blood Venipuncture / Unknown 12/05/2022 5:02 PM CDT 12/05/2022 5:25 PM CDT us Mohit Saldaña MD CHEMISTRY ORDERABLES F inal Result [facility] [address] [place] [address] documented in this encounter Visit Diagnoses Not on filedocumented in this encounter Additional Health Concerns Assessment Noted Time PHQ-9 Depression Total Score: 0 03/25/19 20 10:00 AM INDEX CLERK documented as of this encounter Care Teams Telemarketing Manager Relationship Specialty Start Date End Date Gayla Barker, MACHINE LACER, PRELOAD SUPERVISOR [address] [place] [address] PCP - General Advanced Practice Nurse 03/25/19 Ct, [facility] [place] [employer] 09/03/19 documented as of this encounter
--- OUTSIDE RECORDS SUMMARY | 2024-02-24 19:42 | XMS_ITS | Encounter Summary ---
Author Organization [facility] Care Team Providers Care Magnetic Healer Name Role Phone Gayla Barker BOBBIN PAINTER, MANUFACTURER REPRESENTATIVE Primary Care Provider Ct, Acute Covid At Home Care Unavailable Marianela vailable Encounter Details Date Type Department Care Team (Latest Contact Info) Description 01/08/2022 Travel Social History Tobacco Use Types Packs/Day [...] on file Legal Sex Female 10:27 AM CHANNEL LAYER Gender Identity Not on file Sexual Orientation Not on file COVID-19 Exposure Response Date Recorded In the last 10 days, have yo u been in contact with someone who was confirmed or suspected to have Coronavirus/COVID-19? No / Unsure 01/08/2022 8:52 AM CHANNEL LAYER documented as of this encounter Plan of Treatment Not on file documented as of this encounter Visit Diagnoses Not on filedocumented in this encounter Additional Health Concerns Infection Onset Date Last Indicated Resolved Time COVID - 19 01/08/2022 01/08/2022 01/18/2022 12:1 6 AM CHANNEL LAYER Assessment Noted Time PHQ-9 Depression Total Score: 0 03/25/19 10:00 AM CHANNEL LAYER documented as of this encounter Care Teams Magnetic Healer Relationship Specialty Start Date End Date Gayla Barker, BOBBIN PAINTER, MANUFACTURER REPRESENTATIVE [address] [place] [address] PCP - General Advanced Practice Nurse 03/25/19 Ct, [facility] [place] [employer] [place] 09/03/19 documented as of this encounter
--- OUTSIDE RECORDS SUMMARY | 2024-02-24 19:42 | XMS_ITS | Encounter Summary ---
Author Organization [facility] Address [address] [place] [address] Phone Care Team Providers Care Supervisor Airplane Flight Attendant Name Role Phone Gayla Barker APRN, HARSHA Primary Care Provider Ct, Acute Covid At Home Care Unavailable Marianela vailable Reason for Visit * Reason Comments Medication Refill Encounter Details Date Type Department Care Team (Late st Contact Info) Description 09/03/2022 Telephone [facility] - Primary Care - [place] [address] [place] [address] Gayla Barker APRN, CARD CUTTER HELPER [address] [place] [address] Medication Refill Social History Tobacco [...] on file Legal Sex Female 10:27 AM JOB BOSS Gender Identity Not on file Sexual Orientation Not on file documented as of this encounter Miscellaneous Notes * Telephone Encounter - Rose Mary Hinton RN - 09/15/2022 9:54 AM CDT [employer] message sent to patient * Telephone Encounter - Pooja Whittington RN - 09/15/2022 9:05 AM CDT Attempted to contact Carito. No answer, left message to call back. [employer] message sent. * Telephone Encounter - Jacquie Johnson MA - 09/14/2022 4:27 PM CDT Message left on medication refill voice mail: Patient requesting a return call in regards to the denial of Sertraline hcl 25 mg tabs . Please call patient @[phone] documented in this encounter Plan of Treatment Not on file documented as of this encounter Visit Diagnoses Not on filedocumented in this encounter Additional Health Concerns Assessment Noted Time PHQ-9 Depression Total Score: 0 03/25/19 20 10:00 AM JOB BOSS documented as of this encounter Care Teams Supervisor Airplane Flight Attendant Relationship Specialty Start Date End Date Gayla Barker, ELECTRICIAN JOURNEYMAN WIREMAN, CARD CUTTER HELPER [address] [place] [address] PCP - General Advanced Practice Nurse 03/25/19 Ct, Acute Covid At Home Care [place] [employer] [place] 09/03/19 documented as of this encounter
--- OUTSIDE RECORDS SUMMARY | 2024-02-24 19:42 | XMS_ITS | Encounter Summary ---
Author Organization [facility] Address [address] [facility] [place] [address] Phone Care Team Providers Care Risk Reduction Counselor Name Role Phone Gayla Barker APRN, MAINTENANCE MECHANIC MILLWRIGHT Primary Care Provider Ct, Acute Covid At Home Care Unavailable Marianela vailable Encounter Details Date Type Department Care Team (Late st Contact Info) Description 03/28/2022 Telephone [facility] - Cancer Center Oncology Services [address] [place] [phone] Gómez Alcantar MD [address] [place] [address] Social History Tobacco Use Types Packs/Day Years [...] on file Legal Sex Female 10:27 AM LAW FIRM ADMINISTRATOR Gender Identity Not on file Sexual Orientation Not on file COVID-19 Exposure Response Date Recorded In the last 10 days, have yo u been in contact with someone who was confirmed or suspected to have Coronavirus/COVID-19? No / Unsure 03/06/2022 4:17 PM LAW FIRM ADMINISTRATOR documented as of this encounter Miscellaneous Notes * Telephone Encounter - Lalita Anderson RN - 03/28/2022 1:02 PM LAW FIRM ADMINISTRATOR Patient calling stating she needs to schedule an Iron infusion. Returned call to patient to discuss the message left. Directed patient she received her last Venofer 200mg infusion on 09/02/21. Directed she would need to have repeat iron studies to determine need ofadditional infusions and a follow up with our provider. After much discussion patient states she does not currently have insurance and is unsure if she canpay for all of this. Offered Financial assistance patient states she is unsure if she will qualify. Patient then stated I have a prescription for the Ferrous Gluconate 325mg maybe I should just take that for a month or so and see how I feel. Directed patient to take on an empty stomach with orange juice. Directed patient to call office if she changes her mind and decides to come in for an appointment. Sent MRN to Financial Navigator for assistance. Patient verbalized understanding all instructions provided and will call office with any additionalconcerns or questions. FIRM ADMINISTRATOR documented in this encounter Plan of Treatment Not on file documented as of this encounter Visit Diagnoses Not on filedocumented in this encounter Additional Health Concerns Assessment Noted Time PHQ-9 Depression Total Score: 0 03/25/19 20 10:00 AM LAW FIRM ADMINISTRATOR documented as of this encounter Care Teams Risk Reduction Counselor Relationship Specialty Start Date End Date Gayla Barker, TURN SUPERVISOR, MAINTENANCE MECHANIC MILLWRIGHT [address] [place] [address] PCP - General Advanced Practice Nurse 03/25/19 Ct, Acute Cov[facility] [place] 09/03/19 documented as of this encounter
--- OUTSIDE RECORDS SUMMARY | 2024-02-24 19:42 | XMS_ITS | Encounter Summary ---
Author Organization [employer] Care Team Providers Care Inflated Pad Buffer Name Role Phone Gayla Barker PROFESSOR OF SPECIAL EDUCATION, SOUND DESIGNER Primary Care Provider Ct, Acute Covid At Home Care Unavailable Marianela vailable Encounter Details Date Type Department Care Team (Latest Contact Info) Description 12/05/2022 Travel Social History Tobacco Use Types Packs/Day [...] on file Legal Sex Female 10:27 AM SQL DBA Gender Identity Not on file Sexual Orientation [...] Total Score: 0 03/25/19 20 10:00 AM SQL DBA documented as of this encounter Care Teams Inflated Pad Buffer Relationship Specialty Start Date End Date Gayla Barker, PROFESSOR OF SPECIAL EDUCATION, SOUND DESIGNER [address] [place] [address] PCP - General Advanced Practice Nurse 03/25/19 Ct, [facility] [place] 09/03/19 documented as of this encounter
--- OUTSIDE RECORDS SUMMARY | 2024-02-24 19:42 | XMS_ITS | Encounter Summary ---
Author Organization [facility] Address [address] [place] [address] Phone Care Team Providers Care Treatment Plant Operator Name Role Phone Gayla Barker APRN, ABRASIVE SAWYER Primary Care Provider Ct, Acute Covid At Home Care Unavailable Marianela vailable Encounter Details Date Type Department Care Team (Latest Contact Info) Description 11/18/2021 9:34 AM CDT - 11/18/2021 11:59 PM CDT [facility] [place] [address] [place] [address] Brandy Gaitan APRN, ABRASIVE SAWYER [address] [place] [address] Discharge Disposition: Discharged to home or Selfcare Social History Tobacco Use Types Packs/Day Years Used Date Smoking Tobacco: Former Smokeless Tobacco: Never Comments:only when drink Alcohol Use Standard Drinks/Week Comments Yes 0 (1 standard drink = 0.6 oz pur e alcohol) occasionally AUDIT-C Answer Date Recorded Frequency of Alcohol Consumption Monthly or less 03/25/2019 Average Number of Drinks Not on file 020 Frequency of Binge Drinking Not on file 02/27 PHQ-2 Answer Date Recorded PHQ-2 Score 0 03/25/2019 Education Answer Date Recorded What is the highest level of school you have completed or the highest degree you have received? Some college, no degree 04/19/2021 Comments Unknown Sex and Gender Information Value Date Recorded Sex Assigned at Not on file Legal Sex Female 10:27 AM CLOTH SECONDS SORTER Gender Identity Not on file Sexual Orientation Not on file COVID-19 Exposure Response Date Recorded In the last 10 days, have yo u been in contact with someone who was confirmed or suspected to have Coronavirus/COVID-19? No / Unsure 11/14/2021 1:52 AM CDT documented as of this encounter Medications at Time of Discharge hydroxychloroqui ne (PLAQUENIL) 200 MG Tablet Take 1 Tab by mouth daily. 90 Tab 3 05/09/2019 predniSONE (DELTASONE) 5 MG Tablet 01/31/2021 Acyclovir (ZOVIRAX) 5 % Cream Apply 5 times daily. Application Site: To lesions 5 g 11/14/2021 2 predniSONE (DELTASONE) 2.5 MG Tablet Take 2.5 mg by mouth daily. 2 sertraline (ZOLOFT) 25 MG Tablet Take 1 Tablet by mouth daily. 90 Tablet 11/18/2021 2 traZODone (DESYREL) 50 MG Tablet TAKE 1/2-1 TABLET BY MOUTH AT NIGHT FOR SLEEP/ANXIETY 90 Tablet 11/07/2021 2 documented as of this encounter Plan of Treatment Not on file documented as of this encounter Procedures Procedure Name Priority Date/Time Associated Diagnosis Comments XR CHEST 2 VIEWS Stat with Interpretation 11/18/2021 9:44 AM CDT Cough documented in this encounter Results * XR CHEST 2 VIEWS (11/18/2021 9:44 AM CDT) Anatomical Region Laterality Modality Chest N/A Digital Radiogra phy 11/18/2021 10:0 9 AM CDT Impressions 11/18/2021 10:12 AM CDT IMPRESSION: Unchanged slight prominence of central bronchovascular markings. No acute focal infiltrates or effusions. Heart upper limits of normal in size. Narrative 11/18/2021 10:12 AM CDT EXAM DESCRIPTION: ?? XR CHEST 2 VIEWS REASON FOR STUDY: ?? Cough, dyspnea, congestion, and wheezing. Duration: 5 days TECHNIQUE: ?? PA ??and lateral radiographic views of the chest acquired. COMPARISON: ?? December 28, 2019 FINDINGS: LUNGS/PLEURA: Slight prominence of central bronchovascular markings is unchanged. ?? No focal consolidation or pneumothorax. No pleural effusion. HEART/MEDIASTINUM: ?? Heart size is upper limits of normal. ??Normal mediastinal and hilar contours. HARDWARE/LINES/TUBES: ?? None. BONES: ?? No acute findings. OTHER: ?? No other significant finding. THIS IS AN ELECTRONICALLY VERIFIED FINAL REPORT 11/18/2021 10:09 AM - Electronically signed by ??Lex Curtis M.D. RB: REEMA D: ??11/18/2021 10:09 AM T: ??11/18/2021 10:09 AM Report ID: [id number] Reading Location: ??[id number] Procedure Note Lex Curtis MD - 11/18/2021 EXAM DESCRIPTION: XR CHEST 2 VIEWS REASON FOR STUDY: Cough, dyspnea, congestion, and wheezing. Duration: 5 days TECHNIQUE: PA and lateral radiographic views of the chest acquired. COMPARISON: December 28, 2019 FINDINGS: LUNGS/PLEURA: Slight prominence of central bronchovascular markings is unchanged. No focal consolidation or pneumothorax. No pleural effusion. HEART/MEDIASTINUM: Heart size is upper limits of normal. Normal mediastinal and hilar contours. HARDWARE/LINES/TUBES: None. BONES: No acute findings. OTHER: No other significant finding. THIS IS AN ELECTRONICALLY VERIFIED FINAL REPORT 11/18/2021 10:09 AM - Electronically signed by Lex Curtis M.D. RB: RB Report ID: [id number] Reading Location: [id number] IMPRESSION: Unchanged slight prominence of central bronchovascular markings. No acute focal infiltrates or effusions. Heart upper limits of normal in size. Brandy Gaitan MANAGER GROUP, ABRASIVE SAWYER IMG DIAGNOSTIC [facility]DE [place] Final Result documented in this encounter Visit Diagnoses Not on filedocumented in this encounter Additional Health Concerns Infection Onset Date Last Indicated Resolved Time COVID - 19 11/14/2021 11/18/2021 11/28/2021 12:1 6 AM CDT Assessment Noted Time PHQ-9 Depression Total Score: 0 03/25/19 10:00 AM CLOTH SECONDS SORTER documented as of this encounter Care Teams Treatment Plant Operator Relationship Specialty Start Date End Date Gayla Barker, MANAGER GROUP, ABRASIVE SAWYER [address] [place] [address] PCP - General Advanced Practice Nurse 03/25/19 Ct, [facility] [place] 09/03/19 documented as of this encounter
--- OUTSIDE RECORDS SUMMARY | 2024-02-24 19:42 | XMS_ITS | Encounter Summary ---
Author Organization [facility] Address [address] [place] [address] Phone Care Team Providers Care Screen Printing Machine Loader Unloader Name Role Phone Gayla Barker APRN, CNP Primary Care Provider Ct, Acute Covid At Home Care Unavailable Marianela vailable Reason for Referral * Radiology Services (Routine) - Closed Specialty Diagnoses / Procedures Referred By Contac t Referred To Contact Radiology Diagnoses Mass of right breast, unspecified quadrant Procedures LEONID US BREAST LIMITED RT Jayda Adamson APRN, CNP [address] [place] [address] [address] [place] [address] Phone: tel: fax: Referral ID Status Reason Start Date Expiration Date Visits Re quested Visits Authorized [id number] Closed 05/25/2022 1 1 * Radiology Services (Routine) - Closed Specialty Diagnoses / Procedures Referred By Contac t Referred To Contact Radiology Diagnoses Mass of right breast, unspecified quadrant Procedures LEONID DIAG RIGHT DIGITAL W CAD Jayda Adamson APRN, CNP [address] [place] [address] [address] [place] [address] Phone: tel: fax: Referral ID Status Reason Start Date Expiration Date Visits Re quested Visits Authorized [id number] Closed 05/25/2022 1 1 Encounter Details Date Type Department Care Team (Late st Contact Info) Description 05/25/2022 Transcribe Orders [facility] Central Scheduling [address] [place] [address] Jayda Adamson, CASKET ASSEMBLER, MARKETING COMMUNITY LIAISON [address] [facility] [address] [place] [address] Mass of right breast, unspecified quadrant (Primary Dx) Social History [...] on file Legal Sex Female 10:27 AM POLICE LIEUTENANT Gender Identity Not on file Sexual Orientation Not on file COVID-19 Exposure Response Date Recorded In the last 10 days, have yo u been in contact with someone who was confirmed or suspected to have Coronavirus/COVID-19? No / Unsure 04/25/2022 7:14 AM POLICE LIEUTENANT documented as of this encounter Plan of Treatment Scheduled Orders Name Type Priority Associated Diagnoses Orde r Schedule LEONID DIAG RIGHT DIGITAL W CAD Imaging Routine Mass of right breast, unspecified quadrant Expected: 05/25/2022, Expires: 05/25/2023 LEONID US BREAST LIMITED RT Imaging Routine Mass of right breast, unspecified quadrant Expected: 05/25/2022, Expires: 05/25/2023 documented as of this encounter Visit Diagnoses Diagnosis Mass of right breast, unspecified quadrant- Primary documented in this encounter Additional Health Concerns Assessment Noted Time PHQ-9 Depression Total Score: 0 03/25/19 20 10:00 AM POLICE LIEUTENANT documented as of this encounter Care Teams Screen Printing Machine Loader Unloader Relationship Specialty Start Date End Date Gayla Barker, CASKET ASSEMBLER, MARKETING COMMUNITY LIAISON [address] [place] [address] PCP - General Advanced Practice Nurse 03/25/19 Ct, [facility] Cov[facility] [place] [facility] [place] 09/03/19 documented as of this encounter
--- OUTSIDE RECORDS SUMMARY | 2024-02-24 19:42 | XMS_ITS | Encounter Summary ---
Author Organization [employer] Care Team Providers Care Coating Supervisor Name Role Phone Gayla Bakrer HEAD NURSE, MANAGER TERMINAL Primary Care Provider Ct, Acute Covid At Home Care Unavailable Marianela vailable Encounter Details Date Type Department Care Team (Latest Contact Info) Description 04/21/2022 Travel Social History Tobacco Use Types Packs/Day [...] on file Legal Sex Female 10:27 AM HEALTH INFORMATION MANAGER Gender Identity Not on file Sexual Orientation Not on file COVID-19 Exposure Response Date Recorded In the last 10 days, have yo u been in contact with someone who was confirmed or suspected to have Coronavirus/COVID-19? No / Unsure 04/21/2022 12:54 PM HEALTH INFORMATION MANAGER documented as of this encounter Plan of Treatment Not on file documented as of this encounter Visit Diagnoses Not on filedocumented in this encounter Additional Health Concerns Assessment Noted Time PHQ-9 Depression Total Score: 0 03/25/19 20 10:00 AM HEALTH INFORMATION MANAGER documented as of this encounter Care Teams Coating Supervisor Relationship Specialty Start Date End Date Gayla Barker, HEAD NURSE, MANAGER TERMINAL [address] [place] [address] PCP - General Advanced Practice Nurse 03/25/19 Ct, [facility] Cov[facility] [place] [facility] [place] 09/03/19 documented as of this encounter
--- OUTSIDE RECORDS SUMMARY | 2024-02-24 19:43 | XMS_ITS | Encounter Summary ---
Author Organization [facility] Address [address] [place] [address] Phone Care Team Providers Care Body Trimmer Name Role Phone Gayla Barker APRN, CNP Primary Care Provider Ct, Acute Covid At Home Care Unavailable Marianela vailable Reason for Visit * Reason Onset Date Comments Results 07/11/2021 lab Encounter Details Date Type Department Care Team (Late st Contact Info) Description 07/11/2021 Telephone [facility] - Primary Care - [place] [address] [place] [address] Gayla Barker APRN, CNP [address] [place] [address] Results (lab) Social History Tobacco Use Types Packs/Day Years [...] received? Some college, no degree 04/19/2021 Comments No Sex and Gender Information Value Date Recorded Sex Assigned at Not on file Legal Sex Female 10:27 AM CORPORATE VP ADVERTISING & ONLINE Gender Identity Not on file Sexual Orientation Not on file COVID-19 Exposure Response Date Recorded In the last 10 days, have yo u been in contact with someone who was confirmed or suspected to have Coronavirus/COVID-19? No / Unsure 07/06/2021 7:41 AM CDT documented as of this encounter Miscellaneous Notes * Telephone Encounter - Leti Gusman RN - 07/11/2021 8:43 AM CDT Phoned patient with lab results. Patient aware and verbalized understanding. No questions for internal communications writer. * Telephone Encounter - Leti Gusman RN - 07/11/2021 8:43 AM CDT ----- Message from Gayla Barker APRN, HARSHA sent at 07/11/2021 7:39 AM CDT ----- test was negative. 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 Follow- up with rheumatologyon management. documented in this encounter Plan of Treatment Not on file documented as of this encounter Visit Diagnoses Not on filedocumented in this encounter Additional Health Concerns Assessment Noted Time PHQ-9 Depression Total Score: 0 03/25/19 10:00 AM CORPORATE VP ADVERTISING & ONLINE documented as of this encounter Care Teams Body Trimmer Relationship Specialty Start Date End Date Gayla Barker APRN, SORTER/ASSAY TECH [address] [place] [address] PCP - General Advanced Practice Nurse 03/25/19 Ct, [facility] [place] 09/03/19 documented as of this encounter
--- OUTSIDE RECORDS SUMMARY | 2024-02-24 19:43 | XMS_ITS | Encounter Summary ---
Author Organization [facility] Address [address] [place] [address] Phone Care Team Providers Care Electro Mechanical Designer Name Role Phone Gayla Barker APRN, TIGHT BARREL INSPECTOR Primary Care Provider Ct, Acute Covid At Home Care Unavailable Marianlea vailable Encounter Details Date Type Department Care Team (Late st Contact Info) Description 10/06/2021 Telephone [facility] - Cancer Center Oncology Services [address] [place] [phone] Laura Newman Edw[place], [address] [place] [address] Social History Tobacco Use Types Packs/Day Years [...] on file Legal Sex Female 10:27 AM BABY FORMULA MIXER Gender Identity Not on file Sexual Orientation Not on file COVID-19 Exposure Response Date Recorded In the last 10 days, have rainer gandhi been in contact with someone who was confirmed or suspected to have Coronavirus/COVID-19? No / Unsure 03/06/2022 4:17 PM BABY FORMULA MIXER documented as of this encounter Miscellaneous Notes * Telephone Encounter - Kristy Torre - 10/06/2021 9:17 AM CDT I reached out to the patient on 10/04 & 10/06 regarding rescheduling her missed iron infusion or repeating lab work prior to today's schedule appointment. I left a voicemail on both occassions. Due to no returned calls or updated lab work, today's visit will be canceled. documented in this encounter Plan of Treatment Not on file documented as of this encounter Visit Diagnoses Not on filedocumented in this encounter Additional Health Concerns Infection Onset Date Last Indicated Resolved Time COVID - 19 11/14/2021 11/18/2021 11/28/2021 12:1 6 AM CDT COVID - 19 01/08/2022 01/08/2022 01/18/2022 12:1 6 AM BABY FORMULA MIXER Assessment Noted Time PHQ-9 Depression Total Score: 0 03/25/19 20 10:00 AM BABY FORMULA MIXER documented as of this encounter Care Teams Electro Mechanical Designer Relationship Specialty Start Date End Date Gayla Barker, AGRICULTURAL RESEARCHER, TIGHT BARREL INSPECTOR [address] [place] [address] PCP - General Advanced Practice Nurse 03/25/19 Ct, [facility] Cov[facility] [place] 09/03/19 documented as of this encounter
--- OUTSIDE RECORDS SUMMARY | 2024-02-24 19:43 | XMS_ITS | Encounter Summary ---
Author Organization [employer] Care Team Providers Care Process Supervisor Name Role Phone Gayla Barker ELECTRONIC INSTRUMENT TRADES WORKER, CUSTOMER RESOLUTION SPECIALIST Primary Care Provider Ct, Acute Covid At Home Care Unavailable Marianela vailable Encounter Details Date Type Department Care Team (Latest Contact Info) Description 08/19/2021 Travel Social History Tobacco Use Types Packs/Day [...] on file Legal Sex Female 10:27 AM MAINTENANCE TECHNICIAN 3RD SHIFT Gender Identity Not on file Sexual Orientation Not on file COVID-19 Exposure Response Date Recorded In the last 10 days, have yo u been in contact with someone who was confirmed or suspected to have Coronavirus/COVID-19? No / Unsure 08/19/2021 12:48 PM CDT documented as of this encounter Plan of Treatment Not on file documented as of this encounter Visit Diagnoses Not on filedocumented in this encounter Additional Health Concerns Assessment Noted Time PHQ-9 Depression Total Score: 0 03/25/19 20 10:00 AM MAINTENANCE TECHNICIAN 3RD SHIFT documented as of this encounter Care Teams Process Supervisor Relationship Specialty Start Date End Date Gayla Barker, ELECTRONIC INSTRUMENT TRADES WORKER, CUSTOMER RESOLUTION SPECIALIST [address] [place] [address] PCP - General Advanced Practice Nurse 03/25/19 Ct, [facility] [place] 09/03/19 documented as of this encounter
--- OUTSIDE RECORDS SUMMARY | 2024-02-24 19:43 | XMS_ITS | Encounter Summary ---
Author Organization [employer] Care Team Providers Care Clip Loading Machine Adjuster Name Role Phone Gayla Barker AUTOMATIC DRILL OPERATOR, HOSPITAL RECEPTIONIST Primary Care Provider Ct, Acute Covid At Home Care Unavailable Marianela vailable Encounter Details Date Type Department Care Team (Latest Contact Info) Description 03/05/2021 Travel Social History Tobacco Use Types Packs/Day [...] or the highest degree you have received? Associate degree: academic program 09/24/2020 Comments No Sex and Gender Information Value Date Recorded Sex Assigned at Not on file Legal Sex Female 10:27 AM CERTIFIED SUBSTANCE ABUSE COUNSELOR Gender Identity Not on file Sexual Orientation Not on file COVID-19 Exposure Response Date Recorded In the last month, have you been in contact with someone who was confirmed or suspected to have Coronavirus / COVID-19? Yes 03/05/2021 5:18 PM CERTIFIED SUBSTANCE ABUSE COUNSELOR documented as of this encounter Plan of Treatment Not on file documented as of this encounter Visit Diagnoses Not on filedocumented in this encounter Additional Health Concerns Infection Onset Date Last Indicated Resolved Time COVID - 19 03/05/2021 03/05/2021 03/05/2021 6:11 PM CERTIFIED SUBSTANCE ABUSE COUNSELOR COVID - 19 Confirmed 03/05/2021 03/05/2021 022 12:16 AM CERTIFIED SUBSTANCE ABUSE COUNSELOR Assessment Noted Time PHQ-9 Depression Total Score: 0 03/25/19 20 10:00 AM CERTIFIED SUBSTANCE ABUSE COUNSELOR documented as of this encounter Care Teams Clip Loading Machine Adjuster Relationship Specialty Start Date End Date Gayla Barker, AUTOMATIC DRILL OPERATOR, HOSPITAL RECEPTIONIST [address] [place] [address] PCP - General Advanced Practice Nurse 03/25/19 Ct, [facility] [place] 09/03/19 documented as of this encounter
--- OUTSIDE RECORDS SUMMARY | 2024-02-24 19:43 | XMS_ITS | Encounter Summary ---
Author Organization [facility] Address [address] [place] [address] Phone Care Team Providers Care Colored Liquid Plastic Applier Name Role Phone Gayla Barker APRN, INFORMATION TECHNOLOGY ADVISOR Primary Care Provider Ct, Acute Covid At Home Care Unavailable Marianela vailable Encounter Details Date Type Department Care Team (Late st Contact Info) Description 09/02/2021 Telephone [facility] - Cancer Center Oncology Services [address] [place] [phone] Gómez Alcantar MD [address] [place] [address] Social History Tobacco Use Types [...] on file Legal Sex Female 10:27 AM CENTRIFUGE SEPARATOR TENDER Gender Identity Not on file Sexual Orientation Not on file COVID-19 Exposure Response Date Recorded In the last 10 days, have rainer gandhi been in contact with someone who was confirmed or suspected to have Coronavirus/COVID-19? No / Unsure 08/26/2021 1:43 PM CDT documented as of this encounter Miscellaneous Notes * Telephone Encounter - Tanja Nunez, RN - 09/02/2021 1:53 PM CDT Patient called and spoke to Sirisha about rescheduling today's appt. This nurse called patient back, left voicemail for return call to get appt rescheduled documented in this encounter Plan of Treatment Not on file documented as of this encounter Visit Diagnoses Not on filedocumented in this encounter Additional Health Concerns Assessment Noted Time PHQ-9 Depression Total Score: 0 03/25/19 20 10:00 AM CENTRIFUGE SEPARATOR TENDER documented as of this encounter Care Teams Colored Liquid Plastic Applier Relationship Specialty Start Date End Date Gayla Barker, VOUCHER EXAMINER, INFORMATION TECHNOLOGY ADVISOR [address] [place] [address] PCP - General Advanced Practice Nurse 03/25/19 Ct, Acute Cov[facility] [place] 09/03/19 documented as of this encounter
--- OUTSIDE RECORDS SUMMARY | 2024-02-24 19:43 | XMS_ITS | Encounter Summary ---
Author Organization [id number] Care Team Providers Care Capping Machine Operator Name Role Phone Gayla Barker CONSULTANT LUXURY AND AUTO. VICE PRESIDENT [employer] (EX ), HOSPICE CLINICAL SUPERVISOR Primary Care Provider Ct, Acute [facility] Home [facility] Unavailable Marianela vailable Encounter Details Date Type Department Care Team (Latest Contact Info) Description 03/04/2021 Travel Social History Tobacco Use Types Packs/Day [...] on file Legal Sex Female 10:27 AM CHIEF RESOURCE OFFICER Gender Identity Not on file Sexual Orientation Not on file COVID-19 Exposure Response Date Recorded In the last month, have you been in contact with someone who was confirmed or suspected to have Coronavirus / COVID-19? No / Unsure 03/04/2021 7:08 AM CHIEF RESOURCE OFFICER documented as of this encounter Plan of Treatment Not on file documented as of this encounter Visit Diagnoses Not on filedocumented in this encounter Additional Health Concerns Assessment Noted Time PHQ-9 Depression Total Score: 0 03/25/19 20 10:00 AM CHIEF RESOURCE OFFICER documented as of this encounter Care Teams Capping Machine Operator Relationship Specialty Start Date End Date Gayla Barker, CONSULTANT LUXURY AND AUTO. VICE PRESIDENT [employer] (EX ), HOSPICE CLINICAL SUPERVISOR [address] [place] [address] PCP - General Advanced Practice Nurse 03/25/19 Ct, [facility] [place] [employer] [facility] 09/03/19 documented as of this encounter
--- OUTSIDE RECORDS SUMMARY | 2024-02-24 19:43 | XMS_ITS | Encounter Summary ---
Author Organization [facility] Address [address] [place] [address] Phone Care Team Providers Care Cardiographer Name Role Phone Gayla Barker APRN, CNP Primary Care Provider Ct, [facility] Home [facility] Unavailable Marianela vailable Reason for Visit * Reason Comments Nausea NEEDS WORK NOTE Diarrhea Encounter Details Date Type Department Care Team (Latest Contact Info) Description 06/15/2021 9:00 AM CDT Telemedicine [facility] - Primary Care - [place] [address] [place] [address] Gayla Barker APRN, CNP [address] [place] [address] Gastroenteritis (Primary Dx); Nausea and vomiting, unspecified vomiting type Social History Tobacco Use Types Packs/Day [...] file Legal Sex Female 10:27 AM CLINICAL PRODUCT SPECIALIST Gender Identity Not on file Sexual Orientation Not on file COVID-19 Exposure Response Date Recorded In the last 10 days, have yo u been in contact with someone who was confirmed or suspected to have Coronavirus/COVID-19? No / Unsure 06/15/2021 6:04 AM CDT documented as of this encounter Last Filed Vital Signs Vital Sign Reading Time Taken Comments Blood Pressure - - Pulse - - Temperature - - Respiratory Rate - - Oxygen Saturation - - Inhaled Oxygen Concentration - - Weight - - Height 160 cm (5' 3 ) 06/15/2021 8:38 AM CDT Body Mass Index - - documented in this encounter Patient Instructions * Patient Instructions* Gayla Barker APRN, CNP - 06/15/2021 9:00 AM CDT Push fluids. Rest. Follow up as needed documented in this encounter Progress Notes * Dimple Junior RMA - 06/15/2021 9:00 AM CDT Carito Madison is on video visit for Nausea (NEEDS WORK NOTE) and Diarrhea . Medications and allergies reconciled with Carito Madison. * Gayla Barker APRN, CNP - 06/15/2021 9:00 AM CDT Subjective: Patient was assessed via online video for a duration of 15 minutes.?? Patient verbally consented for this service to be performed and billed.The patient was at home. Patient presents for a video encounter for nausea and vomiting, diarrhea that started yesterday. Itis that she missed work and will need a note. Denies any blood. She Is able to keep fluids down. Review of Systems Constitutional: Negative for fever. HENT: Negative. Respiratory: Negative for cough and shortness of breath. Cardiovascular: Negative for chest pain and palpitations. Gastrointestinal: Positive for diarrhea, nausea and vomiting. Genitourinary: Negative. Musculoskeletal: Negative. Neurological: Negative for dizziness and headaches. Objective: Physical Exam Nursing note reviewed. Constitutional: Appearance: She is ill-appearing. Pulmonary: Effort: Pulmonary effort is normal. Neurological: Mental Status: She is alert and oriented to person, place, and time. Video encounter. Physical exam omitted. Assessment and Plan See Diagnoses, Orders, Follow-up, and Instructions Encounter Diagnoses Name Primary? Nausea and vomiting, unspecified vomiting type ??? Gastroenteritis Yes Push fluids. Rest. Follow up as needed Documentation for this visit on 06/15/2021 was completed using a template. I have seen and examinedthe patient. Everything documented was personally performed at this visit with the necessary additions, deletions and changes made as appropriate. documented in this encounter Plan of Treatment Not on file documented as of this encounter Visit Diagnoses Diagnosis Gastroenteritis- Primary Other and unspecified noninfectious gastroenteritis and colitis Nausea and vomiting, unspecified vomiting type documented in this encounter Additional Health Concerns Assessment Noted Time PHQ-9 Depression Total Score: 0 03/25/19 10:00 AM CLINICAL PRODUCT SPECIALIST documented as of this encounter Care Teams Cardiographer Relationship Specialty Start Date End Date Gayla Barker APRN, MACHINE TRACER [address] [place] [address] PCP - General Advanced Practice Nurse 03/25/19 Ct, [facility] [place] [facility] [place] 09/03/19 documented as of this encounter
--- OUTSIDE RECORDS SUMMARY | 2024-02-24 19:43 | XMS_ITS | Encounter Summary ---
Author Organization [facility] Address [address] [place] [address] Phone Care Team Providers Care Refuse Laborer Name Role Phone Gayla Barker APRN, ELECTROPLATER AUTOMATIC Primary Care Provider Ct, Acute Covid At Home Care Unavailable Marianela vailable Reason for Visit * Reason Comments New Patient * Auth/Cert Specialty Diagnoses / Procedures Referred By Jud freeman Referred To Contact Referral ID Status Reason Start Date Expiration Date Visits Re quested Visits Authorized [id number] 1 1 Encounter Details Date Type Department Care Team (Latest Contact Info) Description 08/19/2021 1:00 PM CDT Office Visit [facility] [address] [place] [id number] Jorge Acosta MD [address] [place] [id number] Microcytic anemia (Primary Dx); Gume's disease (HCC); Attention deficit hyperactivity disorder (ADHD), combined type; Generalized anxiety disorder; 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); BMI 29.0-29.9,adult; Gastroesophageal reflux disease, unspecified whether esophagitis present; Systemic lupus erythematosus, unspecified SLE type, unspecified organ involvement status (HCC) Discharge Disposition: Discharged to home or Selfcare [...] on file Legal Sex Female 10:27 AM 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 No / Unsure 08/19/2021 12:48 PM CDT documented as of this encounter Last Filed Vital Signs Vital Sign Reading Time Taken Comments Blood Pressure 126/80 08/19/2021 1:01 PM CDT Pulse 74 08/19/2021 1:01 PM CDT Temperature 36.7 ??C (98.1 ??F) 08/19/2021 1:01 PM CD T Respiratory Rate 16 08/19/2021 1:01 PM CDT Oxygen Saturation 99% 08/19/2021 1:01 PM CDT Inhaled Oxygen Concentration - - Weight 77.8 kg (171 lb 9.6 oz) 08/19/2021 1:01 P M CDT Height 160 cm (5' 3 ) 08/19/2021 1:01 PM CDT Body Mass Index 30.4 08/19/2021 1:01 PM CDT documented in this encounter Progress Notes * Jorge Acosta MD - 08/19/2021 1:00 PM CDT Images from the original note were not included. Radiation Oncology Consult Note: Patient Name: Carito Madison ? : ?1990 DOS: 08/19/2021 DIAGNOSIS: 1. Microcytic anemia 2. Gume's disease (HCC) 3. Attention deficit hyperactivity disorder (ADHD), combined type 4. Generalized anxiety disorder 5. 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) 6. BMI 29.0-29.9,adult 7. Gastroesophageal reflux disease, unspecified whether esophagitis present 8. Systemic lupus erythematosus, unspecified SLE type, unspecified organ involvement status (HCC) ? IDENTIFYING DATA: 31 y.o. female diagnosed with systemic lupus erythematosus, Gume's disease, attention deficit disorder, and generalized anxiety disorder, now with microcytic anemia. 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 She presented to her primary care provider, Jayda Adamson ([facility]) on 08/03/2021. At that time, the patient complained weight gain despite diet and exercise, fatigue, menorrhagia, and a 7 month history of abdominal issues in addition to an outbreak of herpes simplex virus and reduced libido. Jayda Adamson ordered multiple blood tests, including a CBC, ferritin, iron, and iron-binding capacity levels. The patient underwent her blood work on 08/06/2021. The patient's ferritin levels were 5, with with an iron saturation of 9% an iron level of 35, and a total iron-binding capacity of 378.In addition, the patient's hemoglobin hematocrit were 9.7 in 30.8, respectively with an MCV of 76 and an MCH of 23.8. The patient's RDW was 15.6. Given these findings, it was felt that the patient would benefit from a hematology evaluation for microcytic anemia. She is seen here today in consultation for that purpose. ? PAST MEDICAL HISTORY: ? Past Medical History Positives Diagnosis Date ??? Asthma ??? 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 Lupus (systemic lupus erythematosus) (HCC) ??? Seizures (HCC) PAST SURGICAL HISTORY: Past Surgical History: Procedure Laterality Date ??? APPENDECTOMY ??? SECTION 12/30/2020 ??? WRIST SURGERY ? ALLERGIES: ? Allergies Description Type Start Date End Date Comment Verified Laborer [employer] Amoxicillin Allergy 31-Jan-2020 Reactions: Rash Bon Shi, RN Aripiprazole Intolerance 30-Mar-2020 Severity: Low Reactions: Other (see Comments) Gayla Barker,FORM STRIPPER, ELECTROPLATER AUTOMATIC (Advanced Practice Nurse) Azathioprine Unknown 04-Oct-2020 Severity: Medium Reactions: Hives Sascha Phoenix CMA Clindamycin Allergy 25-Jun-2021 Reactions: Rash Stacey Gutierres RN Escitalopram Contraindication 05-Nov-2019 Severity: Medium Reactions: Other (see Comments), Rash Comment: Caused seizures Caused seizures Caused seizures Caused seizures Caused seizures Caused seizures Caused seizures Caused seizures Caused seizures Caused seizures Caused seizures Caused seizures Caused seizures Caused seizures Caused seizures Caused seizures Caused seizures Caused seizures Caused seizures Caused seizures Caused seizures Caused seizures Caused seizures Caused seizures Sherry Osman RN Methylprednisolone Allergy 25-Mar-2019 Reactions: Anaphylaxis Dimple Junior, RMA Metoclopramide Unknown 06-Sep-2020 Severity: Low Reactions: Other (see Comments) Sascha Phoenix CMA The status for this patient is unknown. MEDICATIONS: ? Current Outpatient Medications: ??? hydroxychloroquine (PLAQUENIL) 200 MG Tablet ??? predniSONE (DELTASONE) 2.5 MG Tablet ??? predniSONE (DELTASONE) 5 MG Tablet ??? sertraline (ZOLOFT) 25 MG Tablet TOBACCO HISTORY: Social History Tobacco Use Smoking Status Former Smoker Smokeless Tobacco Never Used Tobacco Comment only when drink ALCOHOL HISTORY: ? Social History Substance and Sexual Activity Alcohol Use Yes Comment: occasionally FAMILY HISTORY: Family History Problem Relation Age of Onset ??? Diabetes Mother ??? Heart Attack Father SOCIAL HISTORY: ? Social History Socioeconomic History ??? Marital status: Spouse name: Not on file ??? Number of children: Not on file ??? Years of education: Not on file ??? Highest education level: Some college, no degree Occupational History ??? Not on file Tobacco Use ??? Smoking status: Former Smoker ??? Smokeless tobacco: Never Used ??? Tobacco comment: only when drink Vaping Use ??? Vaping Use: Never used Substance and Sexual Activity ??? Alcohol use: Yes Comment: occasionally ??? Drug use: Yes Types: Marijuana, Cocaine ??? Sexual activity: Not on file Other Topics Concern ??? Not on file Social History Narrative ??? Not on file REVIEW OF SYSTEMS: Constitutional: Positive for weight gain. Positive for fatigue. Positive for decrease libido. HEENT: No oral discomfort. No xerostomia. Heart: No palpitations or chest pain noted. Lungs: No unusual shortness of breath. GI: No melena or hematochezia. : Negative. 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 Neurologic: No symptoms suggestive of intracranial metastatic disease. Musculoskeletal: No symptoms of bony disease. 12-point review of systems is otherwise negative except as per HPI. Karnofsky performance status is 90. ? PHYSICAL EXAMINATION: ? Constitutional: Well-developed, well-hydrated, well-nourished female. Alert and oriented to person,place and time. Breathing is non-labored. No acute distress. She is unaccompanied. Vital Signs: LMP 06/25/2021 See vital signs from [facility] chart dated 08/19/2021. HEENT: NC/AT; PERRL/EOMI; oropharynx clear. Conjunctivae clear. Neck: Supple without palpable cervical or supraclavicular lymphadenopathy. Lungs: Clear to auscultation bilaterally. Heart: Regular rate and rhythm. Abdomen: Soft, positive bowel sounds. Nontender. No hepatosplenomegaly or masses. Extremities: No clubbing, cyanosis, or edema. Full range of movement throughout. Musculoskeletal: No joint swelling or muscle wasting. No tenderness to palpation of the axial or appendicular skeletal system. Neuro: Grossly nonfocal. Alert, oriented. Cranial nerves II through XII grossly intact. Motor and sensation intact to light touch. LABORATORY DATA: Lab Results Component Value Date WBC 7.50 07/06/2021 RBC 4.07 07/06/2021 HEMOGLOBIN 10.0 (L) 07/06/2021 HEMATOCRIT 33.7 (L) 07/06/2021 MCV 82.8 07/06/2021 MCH 24.6 (L) 07/06/2021 MCHC 29.7 (L) 07/06/2021 PLATELETCNT 366 07/06/2021 RDW 14.7 07/06/2021 LYMPHOCYTES 28.3 07/06/2021 RELEOS 1.6 07/06/2021 RELBAS 0.5 07/06/2021 ANC 4.73 07/06/2021 MONOCYTES 0.49 07/06/2021 EOSINOPHILS 0.12 07/06/2021 BASOPHILS 0.04 07/06/2021 Lab Results Component Value Date SODIUM 138 07/06/2021 POTASSIUM 3.9 07/06/2021 CHLORIDE 102 07/06/2021 ANIONGAP 16.9 07/06/2021 GLUCOSE 80 07/06/2021 BUN 13 07/06/2021 CREATININE 0.66 07/06/2021 TOTALPROTEIN 7.4 07/06/2021 ALBUMIN 4.7 07/06/2021 CALCIUM 9.4 07/06/2021 SGPTALT 12 07/06/2021 ALKALINEPHO 59 07/06/2021 IMAGING STUDIES: Chest x-ray on 03/10/2021 was normal. PATHOLOGY DATA: Not applicable. IMPRESSION: 31 y.o. female diagnosed with systemic lupus erythematosus, Camden's disease, attention deficit disorder, and generalized anxiety disorder, now with microcytic anemia. DISPOSITION: The patient's case was discussed with Dr. Gómez Alcantar. She recommended that the patient initiate 200 mg of Venofer weekly times to, with repeat blood work to include a ferritin, ironlevel, and iron binding capacity in addition to a CBC and CMP 4 weeks after her last dose of Venofer, followed by a re-evaluation and office visit with Dr. Alcantar within 2 weeks after the blood work is drawn. The patient would like to undergo testosterone hormone replacement. She plans to see her vulnerability researcher to address this issue in the near future. 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 She is currently on 5 mg of prednisone daily. I suggested that she discuss a tapering schedule with her vulnerability researcher to see if she can get off of the Prednisone at some point in the future. With regard to her anemia, I believe that the primary cause is related to her menorrhagia. Thepatient has decided that she does not want to get again in the future, and therefore plansto undergo uterine ablation within the next few months. If this is the case, the Venofer infusions followed by supplemental oral iron thereafter should address the issue such that she should not experience this particular cause of anemia can in the future. ? The patient was given an opportunity to ask questions, and all questions were answered to the patient's satisfaction. The patient verbalizes understanding of the plan as outlined above. ? Thank you for allowing us to participate in the care of this very pleasant lady. Jorge Acosta MD Radiation Oncology CC: Patient Care Team: Gayla Barker, FORM STRIPPER, ELECTROPLATER AUTOMATIC as PCP - General (Advanced Practice Nurse) Ct, Acute Covid At Home Care as Digital [facility] Gayla Barker APRN, ELECTROPLATER AUTOMATIC documented in this encounter Miscellaneous Notes * Interdisciplinary - Daniela Llamas - 08/19/2021 1:00 PM CDT Patient here today to establish care for iron deficiency anemia. No pain complaints today. Medication up to date. -cs documented in this encounter Plan of Treatment Not on file documented as of this encounter Visit Diagnoses Diagnosis Microcytic anemia- Primary Iron deficiency anemia, unspecified Camden's disease (HCC) Glucocorticoid deficiency Attention deficit hyperactivity disorder (ADHD), combined type Generalized anxiety disorder 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) Unspecified epilepsy without mention of intractable epilepsy BMI 29.0-29.9,adult Body Mass Index 29.0-29.9, adult Gastroesophageal reflux disease, unspecified whether esophagitis present Systemic lupus erythematosus, unspecified SLE type, unspecified organ involvement status (HCC) documented in this encounter Additional Health Concerns Assessment Noted Time PHQ-9 Depression Total Score: 0 03/25/19 20 10:00 AM OUTCOME ANALYST documented as of this encounter Care Teams Refuse Laborer Relationship Specialty Start Date End Date Gayla Barker APRN, ELECTROPLATER AUTOMATIC [address] [place] [address] PCP - General Advanced Practice Nurse 03/25/19 Ct, [facility] [place] [employer] [place] 09/03/19 documented as of this encounter
--- OUTSIDE RECORDS SUMMARY | 2024-02-24 19:43 | XMS_ITS | Encounter Summary ---
Author Organization [facility] Address [address] [place] [address] Phone Care Team Providers Care Medical Staff Services Coordinator Name Role Phone Gayla Barker APRN, PATTERN ASSEMBLER Primary Care Provider Ct, [facility] Unavailable Marianela vailable Encounter Details Date Type Department Care Team (Late st Contact Info) Description 07/06/2021 10:50 AM CDT Lab [facility] - Primary Care - [address] [phone] Lab, 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 No / Unsure 07/06/2021 7:41 AM CDT documented as of this encounter Progress Notes * Migdalia Hernandez - 07/06/2021 10:50 AM CDT Carito presents for lab draw per order of Gayla Barker APN, PATTERN ASSEMBLER dated 07/06/21. Specimen collected from right antecubital without incident. sah documented in this encounter Plan of Treatment Not on file documented as of this encounter Procedures Procedure Name Priority Date/Time Associated Diagnosis Comments GRAIN PICKER AB Routine 07/06/2021 8:29 AM CDT Systemic lupus erythematosus, unspecified SLE type, unspecified organ involvement status (HCC) CBC WITH AUTO DIFFERENTIAL Routine 07/06/2021 8:29 AM CDT Systemic lupus erythematosus, unspecified SLE type, unspecified organ involvement status (HCC) ERYTHROCYTE SEDIMENTATION RATE (ESR) Routine 07/06/2021 8:29 AM CDT Systemic lupus erythematosus, unspecified SLE type, unspecified organ involvement status (HCC) HCG BETA SUBUNIT SERUM QUANT Routine 07/06/2021 8:29 AM CDT Irregular periods PHUONG PANEL Routine 07/06/2021 8:29 AM CDT Systemic lupus erythematosus, unspecified SLE type, unspecified organ involvement status (HCC) COMPLETE BLOOD COUNT (CBC) WITH DIFF Routine 07/06/2021 8:29 AM CDT Systemic lupus erythematosus, unspecified SLE type, unspecified organ involvement status (HCC) C4 COMPLEMENT Routine 07/06/2021 8:29 AM CDT Systemic lupus erythematosus, unspecified SLE type, unspecified organ involvement status (HCC) C-REACTIVE PROTEIN (CRP) HIGH SENSITIVE Routine 07/06/2021 8:29 AM CDT Systemic lupus erythematosus, unspecified SLE type, unspecified organ involvement status (HCC) BARAK SCREEN MULTIPLEX W/REFLEX PHUONG Routine 07/06/2021 8:29 AM CDT Systemic lupus erythematosus, unspecified SLE type, unspecified organ involvement status (HCC) documented in this encounter Results * (ABNORMAL) PHUONG PANEL (07/06/2021 8:29 AM CDT) DNA AB, DOUBLE STRAND 6(H) <5 IU/mL 07/07/2021 10:10 AM CDT [facility] Comment: <= 4 Negative 5-9 Indeterminate >= 10 Positive CHROMATIN AB 0.4 <1.0 AI 07/07/2021 10:10 AM CDT [facility] RIBOSOMAL P AB <0.2 <1.0 AI 07/07/2021 10:10 AM CDT [facility] SS-A <0.2 <1.0 AI 07/07/2021 10:10 AM CDT [facility] SS-B <0.2 <1.0 AI 07/07/2021 10:10 AM CDT [facility] CENTROMERE B AB <0.2 <1.0 AI 10:10 AM CDT [facility] SM ANTIBODY <0.2 <1.0 AI 07/07/2021 10:10 AM CDT [facility] SM GRAIN PICKER <0.2 <1.0 AI 07/07/2021 10:10 AM CDT [facility] GRAIN PICKER AB 1.1(H) <1.0 AI 07/07/2021 10:10 AM CDT [facility] SCL-70 <0.2 <1.0 AI 07/07/2021 10:10 AM CDT [facility] MELISA-1 <0.2 <1.0 AI 07/07/2021 10:10 AM CDT [facility] Blood Venipuncture / Unknown 07/06/2021 8:29 AM CDT 07/06/2021 8:30 AM CDT Narrative [facility] - 07/07/2021 10:10 AM CDT Antibody testing was performed by multiplex flow immunoassay on the [employer] platform. us Gayla Barker APRN, CNP IMMUNOLOGY ORDERABLES F inal Result [facility] [address] [place] [address], [place] * (ABNORMAL) CBC WITH AUTO DIFFERENTIAL (07/06/2021 8:29 AM CDT) WBC 7.50 4.00 - 12.00 10(3)/[facility] 07/06/2021 2:02 PM CDT [facility] RBC 4.07 3.80 - 5.30 10(6)/[facility] 07/06/2021 2:02 PM CDT [facility] HEMOGLOBIN (HGB) 10.0(L) 12.0 - 15.8 g/dL 07/06/2021 2:02 PM CDT [facility] HEMATOCRIT (HCT) 33.7(L) 36.0 - 47.0 % 07/06/2021 2:02 PM CDT [facility] MCV 82.8 82.0 - 96.0 fL 07/06/2021 2:02 PM CDT [facility] MCH 24.6(L) 26.0 - 34.0 pg 07/06/2021 2:02 PM CDT [facility] MCHC 29.7(L) 31.0 - 36.0 g/dL 07/06/2021 2:02 PM CDT [facility] PLATELET COUNT 366 140 - 440 10(3)/mcL 07/06/2021 2:02 PM CDT [facility] RDW 14.7 11.8 - 15.5 % 07/06/2021 2:02 PM CDT [facility] MPV 10.6 9.7 - 12.4 fL 07/06/2021 2:02 PM CDT [facility] NEUTROPHILS 63.1 47.0 - 73.0 % 07/06/2021 2:02 PM CDT [facility] LYMPHOCYTES 28.3 18.0 - 42.0 % 07/06/2021 2:02 PM CDT [facility] MONOCYTES 6.5 4.0 - 12.0 % 07/06/2021 2:02 PM CDT [facility] EOSINOPHILS 1.6 0.0 - 5.0 % 07/06/2021 2:02 PM CDT [facility] BASOPHILS 0.5 0.0 - 1.0 % 07/06/2021 2:02 PM CDT [facility] ABSOLUTE NEUTROPHILS 4.73 1.60 - 7.70 10(3)/[facility] 07/06/2021 2:02 PM CDT [facility] ABSOLUTE LYMPHOCYTES 2.12 1.30 - 3.20 10(3)/[facility] 07/06/2021 2:02 PM CDT [facility] ABSOLUTE MONOCYTES 0.49 0.20 - 1.00 10(3)/[facility] 07/06/2021 2:02 PM CDT [facility] ABSOLUTE EOSINOPHIL 0.12 0.00 - 0.40 10(3)/[facility] 07/06/2021 2:02 PM CDT [facility] ABSOLUTE BASOPHILS 0.04 0.00 - 0.10 10(3)/[facility] 07/06/2021 2:[facility] PM [facility] NR[facility] PER 100 WBC 0 07/07/19 2:02 PM CDT [facility] RESULTS ARE CONSISTENT WITH PERIPHERAL SMEAR REVIEW Yes 07/06/2021 2:02 PM CDT [facility] OVALOCYTES Present 07/06/2021 2:02 PM [facility] TEARDROP CELLS Present 07/06/2021 2:02 PM [facility] Blood Venipuncture / Unknown 07/06/2021 8:29 AM CDT 07/06/2021 8:30 AM CDT Narrative [facility] - 07/06/2021 2:02 PM CDT Hypochromia us Gayla Barker APRN, CNP HEMATOLOGY ORDERABLES F inal Result Performing Organization Address City/[facility] Co de Phone Number [facility] [address] [place] [address] * HCG BETA SUBUNIT SERUM QUANT (07/06/2021 8:29 AM CDT) HCG BETA SUBUNIT, QUANT <=0.50 <=5.00 mIU/mL 07/06/2021 1:26 PM CDT [facility] Blood Venipuncture / Unknown 07/06/2021 8:29 AM CDT 07/06/2021 8:30 AM CDT Narrative [facility] - 07/06/2021 1:26 PM CDT HCG Interpretive Reference Ranges Wks of : References Ranges 4 wks [phone] wks [phone] wks [phone] 7 wks [id number] 8 wks [id number] 9 wks [id number] 10 wks [id number] 14 wks [id number] 15 wks [id number] 16 wks [phone] 17 wks [id number] 18 wks [phone] 19 wks [phone] Non- Female: 0-4 us Gayla Barker APRN, CNP CHEMISTRY ORDERABLES Fi nal Result Performing Organization Address City/[facility] Co de Phone Number [facility] [address] [place] [address] * C4 COMPLEMENT (07/06/2021 8:29 AM CDT) C4 COMPLEMENT 25 16 - 38 mg/dL [facility] 07/08/2021 1:37 AM CDT [facility] Blood Venipuncture / Unknown 07/06/2021 8:29 AM CDT 07/06/2021 8:30 AM CDT Gayla Barker APRN, CNP CHEMISTRY ORDERABLES Fi nal Result [facility] [address] [place] [address], [place] [phone] * (ABNORMAL) GRAIN PICKER AB (07/06/2021 8:29 AM CDT) GRAIN PICKER AB 1.1(H) <1.0 AI 07/06/2021 10:11 PM CDT [facility] Blood Venipuncture / Unknown 07/06/2021 8:29 AM CDT 07/06/2021 8:30 AM CDT Narrative [facility] - 07/06/2021 10:11 PM CDT Antibody testing was performed by multiplex flow immunoassay on the [employer] platform. Gayla Barker APRN, CNP IMMUNOLOGY ORDERABLES F inal Result Performing Organization Address [facility] Co de Phone Number [facility] [address] [place] [address], [place] * ERYTHROCYTE SEDIMENTATION RATE (ESR) (07/06/2021 8:29 AM CDT) ESR (SED RATE, ERYTHROCYTE SEDIMENTATION RATE) 12 <20 mm/h 07/06/2021 1:44 PM CDT [facility] Comment: Patients presenting with increased level of fibrinogen, gamma globulins, or abnormally shaped RBCs could affect the results for the erythrocyte sedimentation rate (ESR). Results should be clinically correlated. Blood Venipuncture / Unknown 07/06/2021 8:29 AM CDT 07/06/2021 8:30 AM CDT Gayla Barker APRN, CNP HEMATOLOGY ORDERABLES F inal Result [facility] [address] [place] [address] * (ABNORMAL) BARAK SCREEN MULTIPLEX W/REFLEX PHUONG (07/06/2021 8:29 AM CDT) BARAK SCR MULTIPLEX Positive(A ) Negative, See comment 07/07/2021 7:03 AM CDT [facility] Blood Venipuncture / Unknown 07/06/2021 8:29 AM CDT 07/06/2021 8:30 AM CDT Narrative [facility] - 07/07/2021 7:03 AM CDT Antibody testing was performed by multiplex flow immunoassay on the [employer] platform. us Gayla Barker APRN, HARSHA IMMUNOLOGY ORDERABLES F inal Result Performing Organization Address City/[facility] Co de Phone Number [facility] [address] [place] [address], [place] * (ABNORMAL) C-REACTIVE PROTEIN (CRP) HIGH SENSITIVE (07/06/2021 8:29 AM CDT) CRP ULTRAQUANT 6.37(H) <5.00 mg/L 07/06/2021 9:32 PM CDT [facility] Blood Venipuncture / Unknown 07/06/2021 8:29 AM CDT 07/06/2021 8:30 AM CDT us Gayla Barker APRN, HARSHA CHEMISTRY ORDERABLES Fi nal Result Performing Organization Address [facility] Co de Phone Number [facility] [address] [place] [address], [place] documented in this encounter Visit Diagnoses Diagnosis Systemic lupus erythematosus, unspecified SLE type, unspecified organ involvement status (HCC) Irregular periods Irregular menstrual cycle documented in this encounter Additional Health Concerns Assessment Noted Time PHQ-9 Depression Total Score: 0 03/25/19 10:00 AM AIR QUALITY CHEMIST documented as of this encounter Care Teams Medical Staff Services Coordinator Relationship Specialty Start Date End Date Gayla Barker APRN, PATTERN ASSEMBLER [address] [place] [address] PCP - General Advanced Practice Nurse 03/25/19 Ct, [facility] [place] [employer] MEKHI 09/03/19 documented as of this encounter
--- OUTSIDE RECORDS SUMMARY | 2024-02-24 19:43 | XMS_ITS | Encounter Summary ---
Author Organization [facility] Address [address] [place] [address] Phone Care Team Providers Care Finishing Trimmer Name Role Phone Gayla Barker APRN, MELT SUPERVISOR Primary Care Provider Ct, Acute Cov[facility] At Home [facility] Unavailable Marianela vailable Reason for Visit * Reason Onset Date Comments Medication Management 02/06/2021 Encounter Details Date Type Department Care Team (Late st Contact Info) Description 02/06/2021 [facility]phone [facility] [place] [address] [place] [phone] Nahomi Ontiveros APRN, MELT SUPERVISOR [address] [place] [address] Medication Management Social History Tobacco Use Types Packs/Day Years [...] on file Legal Sex Female 10:27 AM UNITIZER Gender Identity Not on file Sexual Orientation Not on file COVID-19 Exposure Response Date Recorded In the last month, have you been in contact with someone who was confirmed or suspected to have Coronavirus / COVID-19? No / Unsure 02/12/2021 1:48 PM UNITIZER documented as of this encounter Miscellaneous Notes * Telephone Encounter - Khushbu Watters RN - 02/06/2021 8:02 AM CST Patient sent a [employer] message stating her fluconazole was not called into the pharmacy from visit on 02/04/2021. Please advise Patient is also asking for results of urine culture ( I did make her aware it was resulted as a mixed growth ) She is asking if you feel any further treatment is needed bases off this urine culture. IZER IZER documented in this encounter Plan of Treatment Not on file documented as of this encounter Visit Diagnoses Not on filedocumented in this encounter Additional Health Concerns Assessment Noted Time PHQ-9 Depression Total Score: 0 03/25/19 10:00 AM UNITIZER documented as of this encounter Care Teams Finishing Trimmer Relationship Specialty Start Date End Date Gayla Barker, STAGECRAFT PROFESSOR, MELT SUPERVISOR [address] [place] [address] PCP - General Advanced Practice Nurse 03/25/19 Ct, [facility] [place] [employer] [place] 09/03/19 documented as of this encounter
--- OUTSIDE RECORDS SUMMARY | 2024-02-24 19:43 | XMS_ITS | Encounter Summary ---
Author Organization [facility] Address [address] [place] [address] Phone Care Team Providers Care Payroll Bookkeeper Name Role Phone Gayla Barker APRN, CNP Primary Care Provider Ct, [facility] Home [facility] Unavailable Marianela vailable Reason for Visit * Reason Onset Date Comments Medication Refill 11/18/2021 Encounter Details Date Type Department Care Team (Late st Contact Info) Description 11/18/2021 Refill [facility] - Primary Care - [place] [address] [place] [address] Gayla Barker APRN CIGARETTE PAPER TESTER [address] [place] [address] Medication Refill Social History Tobacco [...] on file Legal Sex Female 10:27 AM SCRUB TECH Gender Identity Not on file Sexual Orientation Not on file COVID-19 Exposure Response Date Recorded In the last 10 days, have yo u been in contact with someone who was confirmed or suspected to have Coronavirus/COVID-19? 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 Order pended to PCP. documented in this encounter Plan of Treatment Not on file documented as of this encounter Visit Diagnoses Not on filedocumented in this encounter Additional Health Concerns Infection Onset Date Last Indicated Resolved Time COVID - 19 11/14/2021 11/18/2021 11/28/2021 12:1 6 AM CDT Assessment Noted Time PHQ-9 Depression Total Score: 0 03/25/19 10:00 AM SCRUB TECH documented as of this encounter Care Teams Payroll Bookkeeper Relationship Specialty Start Date End Date Gayla Barker, FUNERAL DRIVER, CIGARETTE PAPER TESTER [address] [place] [address] PCP - General Advanced Practice Nurse 03/25/19 Ct, [facility] [place] [employer] [place] 09/03/19 documented as of this encounter
--- OUTSIDE RECORDS SUMMARY | 2024-02-24 19:43 | XMS_ITS | Encounter Summary ---
Author Organization [employer] Care Team Providers Care Plate Worker Name Role Phone Gayla Barker BEFORE SCHOOL BABYSITTER, PUBLICATIONS SALES REPRESENTATIVE Primary Care Provider Ct, Acute Cov[facility] At Home [facility] Unavailable Marianela vailable Encounter Details Date Type Department Care Team (Latest Contact Info) Description 08/26/2021 Travel Social History Tobacco Use Types Packs/Day [...] on file Legal Sex Female 10:27 AM MANAGEMENT INTERN Gender Identity Not on file Sexual Orientation [...] Total Score: 0 03/25/19 20 10:00 AM MANAGEMENT INTERN documented as of this encounter Care Teams Plate Worker Relationship Specialty Start Date End Date Gayla Barker, BEFORE SCHOOL BABYSITTER, PUBLICATIONS SALES REPRESENTATIVE [address] [place] [address] PCP - General Advanced Practice Nurse 03/25/19 Ct, [facility] [place] 09/03/19 documented as of this encounter
--- OUTSIDE RECORDS SUMMARY | 2024-02-24 19:43 | XMS_ITS | Encounter Summary ---
Author Organization [employer] Care Team Providers Care Mrp Controller Name Role Phone Gayla Barker SENIOR SQL SERVER DEVELOPER, INSTRUCTIONAL TECHNOLOGY COORDINATOR Primary Care Provider Ct, Acute Covid At Home Care Unavailable Marianela vailable Encounter Details Date Type Department Care Team (Latest Contact Info) Description 06/15/2021 Travel Social History Tobacco Use Types Packs/Day [...] on file Legal Sex Female 10:27 AM WEIGHT REDUCTION SPECIALIST Gender Identity Not on file Sexual [...] Depression Total Score: 0 03/25/19 10:00 AM WEIGHT REDUCTION SPECIALIST documented as of this encounter Care Teams Mrp Controller Relationship Specialty Start Date End Date Gayla Barker, SENIOR SQL SERVER DEVELOPER, INSTRUCTIONAL TECHNOLOGY COORDINATOR [address] [place] [address] PCP - General Advanced Practice Nurse 03/25/19 Ct, [facility] [place] [employer] [place] 09/03/19 documented as of this encounter
--- OUTSIDE RECORDS SUMMARY | 2024-02-24 19:43 | XMS_ITS | Encounter Summary ---
Author Organization [facility] Address [address] [place] [address] Phone Care Team Providers Care Manager Outpatient Name Role Phone Gayla Barker APRN, WOOD GANG SAWYER Primary Care Provider Ct, [facility] Unavailable Marianela vailable Reason for Visit * Reason Comments Cough Encounter Details Date Type Department Care Team (Late st Contact Info) Description 03/05/2021 5:22 PM DOCUMENTATION SUPERVISOR - 03/05/2021 5:55 PM DOCUMENTATION SUPERVISOR Emergency [facility] [address] [place] [id number] Gayla Jimenez, PAC [address] [place] [address] Viral syndrome Discharge Disposition: Discharged to home or Selfcare [...] on file Legal Sex Female 10:27 AM DOCUMENTATION SUPERVISOR Gender Identity Not on file Sexual Orientation Not on file COVID-19 Exposure Response Date Recorded In the last month, have you been in contact with someone who was confirmed or suspected to have Coronavirus / COVID-19? Yes 03/05/2021 5:18 PM DOCUMENTATION SUPERVISOR documented as of this encounter Last Filed Vital Signs Vital Sign Reading Time Taken Comments Blood Pressure 131/66 03/05/2021 5:16 PM DOCUMENTATION SUPERVISOR Pulse 66 03/05/2021 5:16 PM DOCUMENTATION SUPERVISOR Temperature 36.4 ??C (97.6 ??F) 03/05/2021 5:16 PM CS T Respiratory Rate 16 03/05/2021 5:16 PM DOCUMENTATION SUPERVISOR Oxygen Saturation 96% 03/05/2021 5:16 PM DOCUMENTATION SUPERVISOR Inhaled Oxygen Concentration - - Weight 76.2 kg (168 lb) 03/05/2021 5:16 PM DOCUMENTATION SUPERVISOR Height 160 cm (5' 3 ) 03/05/2021 5:16 PM DOCUMENTATION SUPERVISOR Body Mass Index 29.76 03/05/2021 5:16 PM DOCUMENTATION SUPERVISOR documented in this encounter Discharge Instructions * Discharge Instructions* Gayla Jimenez PAC - 03/05/2021 5:48 PM DOCUMENTATION SUPERVISOR Please return for evaluation if your symptoms change or worsen. Please push fluids, rest, and take tylenol or ibuprofen if needed for discomfort. MENTATION SUPERVISOR * Attachments The following attachments cannot be sent through Care Everywhere. * Viral Illness Adult ([place] Citizen) documented in this encounter Medications at Time of Discharge hydroxychloroquin e (PLAQUENIL) 200 MG Tablet Take 1 Tab by mouth daily. 90 Tab 3 05/09/2019 predniSONE (DELTASONE) 5 MG Tablet 01/31/2021 benzonatate (Tessalon Perles) 100 MG Capsule Take 1 Capsule by mouth 3 times daily as needed for Cough for up to 10 days. 20 Capsule 03/05/2021 03/15/2021 ondansetron (ZOFRAN) 4 MG Tablet Take 1-2 Tablets by mouth every 8 hours as needed for Nausea - 1st line. 10 Tablet 03/05/2021 07/06/2021 predniSONE (DELTASONE) 2.5 MG Tablet Take 2.5 mg by mouth daily. 12/14/2021 sertraline (ZOLOFT) 25 MG Tablet Take 1 Tablet by mouth daily. 90 Tablet 1 02/02/2021 07/21/2021 documented as of this encounter ED Notes * Darwin Moreno RN - 03/05/2021 5:55 PM CST pt insists on leaving before test results are back. she understands use of my chart. she understands use of prescribed meds. no new questions. resp unlabored. she walked out of er with steady gait. MENTATION SUPERVISOR * Gayla Jimenez PAC - 03/05/2021 5:43 PM CST Chief Complaint Patient presents with ??? Cough HPI Carito Madison is a 30 y.o. female who presents due to a cough, headache, body aches, nausea, vomiting, and diarrhea which started yesterday. She states that she has some family members whom are positive for covid. She states she does have her covid vaccine. She has lupus and is on prednisone plaquenil. She is a former smoker. Her pmd is Gayla Barker NP. No current facility-administered medications for this encounter. Current Outpatient Medications Medication Sig Dispense Refill ??? benzonatate (Tessalon Perles) 100 MG Capsule Take 1 Capsule by mouth 3 times daily as needed for Cough for up to 10 days. 20 Capsule 0 ??? hydroxychloroquine (PLAQUENIL) 200 MG Tablet Take 1 Tab by mouth daily. 90 Tab 3 ??? ondansetron (ZOFRAN) 4 MG Tablet Take 1-2 Tablets by mouth every 8 hours as needed for Nausea -1st line. 10 Tablet 0 ??? predniSONE (DELTASONE) 2.5 MG Tablet Take 2.5 mg by mouth daily. ??? predniSONE (DELTASONE) 5 MG Tablet ??? sertraline (ZOLOFT) 25 MG Tablet Take 1 Tablet by mouth daily. 90 Tablet 1 Allergies Allergen Reactions ??? Azathioprine Hives ??? Escitalopram Other (see Comments) and Rash Caused seizures Caused seizures Caused seizures Caused seizures Caused seizures Caused seizures Caused seizures Caused seizures Caused seizures Caused seizures Caused seizures Caused seizures Caused seizures Caused seizures Caused seizures Caused seizures Caused seizures Caused seizures Caused seizures Caused seizures Caused seizures Caused seizures Caused seizures Caused seizures ??? Amoxicillin Rash ??? Medrol [Methylprednisolone] Anaphylaxis ??? Aripiprazole Other (see Comments) ??? Metoclopramide Other (see Comments) Past Medical History Positives Diagnosis Date ??? Asthma ??? 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 Lupus (systemic lupus erythematosus) (HCC) ??? Seizures (HCC) Past Surgical History: Procedure Laterality Date ??? APPENDECTOMY ??? SECTION 12/30/2020 ??? WRIST SURGERY Social History Socioeconomic History ??? Marital status: Spouse name: Not on file ??? Number of children: Not on file ??? Years of education: Not on file ??? Highest education level: Associate degree: academic program Occupational History ??? Not on file Tobacco [...] Not on file Social Determinants of Health Social determinant risk not applicable to this patient. BP 131/66 Pulse 66 Temp 97.6 ??F (36.4 ??C) (Tympanic) Resp 16 Ht 5' 3 (1.6 m) Wt 168 lb(76.2 kg) LMP 02/27/2020 (Approximate) SpO2 96% BMI 29.76 kg/m?? Review of Systems Constitutional: Negative for chills and fever. HENT: Positive for congestion. Negative for ear pain, rhinorrhea and sore throat. Eyes: Negative for discharge. Respiratory: Positive for cough. Negative for chest tightness, shortness of breath and wheezing. [...] Nerves: No cranial nerve deficit. Labs Reviewed SARS-COV-2 BY MOLECULAR POCT INFLUENZA A & B No orders to display Procedures Imaging Results None Labs Reviewed SARS-COV-2 BY MOLECULAR POCT INFLUENZA A & B MDM Coding Clinical Impression 1. Viral syndrome Patient requested leaving prior to her test results. She states she will check my chart for her results. Encouraged her to push fluids, rest, and to quarantine at home for 10d if her covid test is positive. Patient understands to return for reevaluation if symptoms change or worsen Cosigned by Raquel Barry MD at 03/06/2021 6:14 AM DOCUMENTATION SUPERVISOR MENTATION SUPERVISOR MENTATION SUPERVISOR * Mahsa Stevens RN - 03/05/2021 5:19 PM CST Pt to ED with c/o cough, headache, body aches, N/V/D since yesterday. Reports her family is covid positive. Pt is concerned because she has a at home MENTATION SUPERVISOR documented in this encounter Plan of Treatment Not on file documented as of this encounter Procedures Procedure Name Priority Date/Time Associated Diagnosis Comments POCT INFLUENZA A & B STAT 03/05/2021 5:43 PM DOCUMENTATION SUPERVISOR SARS-COV-2 BY MOLECULAR STAT 03/05/2021 5:42 PM DOCUMENTATION SUPERVISOR documented in this encounter Results * POCT Influenza A & B (03/05/2021 5:43 PM DOCUMENTATION SUPERVISOR) Pathologist [facility] POC INFLU A Presumptive negative Group A POC INFLU B Presumptive negative Group B POC INFLUENZA CONTROL Overhauler Pass 03/05/2021 5:43 PM DOCUMENTATION SUPERVISOR Gayla Rangel Page PAC POINT OF CARE TESTING (PRESTON [place]) Final Result * (ABNORMAL) SARS-COV-2 BY MOLECULAR (03/05/2021 5:42 PM DOCUMENTATION SUPERVISOR) Pathologist [facility] SARSCOV2 DETECTED(A ) (Reference Range for this test is Not Detected) [facility] ID NOW 03/05/2021 6:11 PM DOCUMENTATION SUPERVISOR [facility] Comment:This test was perfor med by a MOLECULAR, NON-PCR method Other NASAL STRUCTURE / Unknown Non-Phlebotomy Collection / Unknown 03/05/2021 5:42 PM DOCUMENTATION SUPERVISOR 03/05/2021 6:02 PM DOCUMENTATION SUPERVISOR Narrative [facility] - 03/05/2021 6:11 PM DOCUMENTATION SUPERVISOR This test has been authorized by the [...] information for Clinicians can be found at: https://www.fda.gov/media/890319/download Additional information for Patients can be found at: https://www.fda.gov/media/171705/download Gayla Rangel Page PAC MICROBIOLOGY - GENERAL ORDER ANAHI Final Result [facility] [address] [place] [address] documented in this encounter Visit Diagnoses Diagnosis Viral syndrome- Primary Unspecified viral infection, in conditions classified elsewhere and of unspecified site documented in this encounter Additional Health Concerns Infection Onset Date Last Indicated Resolved Time COVID - 19 03/05/2021 03/05/2021 03/05/2021 6:11 PM DOCUMENTATION SUPERVISOR Assessment Noted Time PHQ-9 Depression Total Score: 0 03/25/19 10:00 AM DOCUMENTATION SUPERVISOR documented as of this encounter Care Teams Manager Outpatient Relationship Specialty Start Date End Date Gayla Barker, BUDGET REPORT CLERK, [employer]OD GANG SAWYER [address] [place] [address] PCP - General Advanced Practice Nurse 03/25/19 Ct[facility] [place] [facility] 09/03/19 documented as of this encounter
--- OUTSIDE RECORDS SUMMARY | 2024-02-24 19:43 | XMS_ITS | Encounter Summary ---
Author Organization [employer] Care Team Providers Care Windows Technical Specialist Name Role Phone Gayla Barker CISCO NETWORK ENGINEER, ENTRY REP Primary Care Provider Ct, [facility] Unavailable Marianela vailable Encounter Details Date Type Department Care Team (Latest Contact Info) Description 02/04/2021 Travel Social History Tobacco Use Types Packs/Day [...] on file Legal Sex Female 10:27 AM CYCLE CONSULTANT Gender Identity Not on file Sexual Orientation Not on file COVID-19 Exposure Response Date Recorded In the last month, have you been in contact with someone who was confirmed or suspected to have Coronavirus / COVID-19? No / Unsure 02/04/2021 10:03 AM CYCLE CONSULTANT documented as of this encounter Plan of Treatment Not on file documented as of this encounter Visit Diagnoses Not on filedocumented in this encounter Additional Health Concerns Assessment Noted Time PHQ-9 Depression Total Score: 0 03/25/19 20 10:00 AM CYCLE CONSULTANT documented as of this encounter Care Teams Windows Technical Specialist Relationship Specialty Start Date End Date Gayla Barker, CISCO NETWORK ENGINEER, ENTRY REP [address] [place] [address] PCP - General Advanced Practice Nurse 03/25/19 Ct, [facility] [place] [facility] [place] 09/03/19 documented as of this encounter
--- OUTSIDE RECORDS SUMMARY | 2024-02-24 19:43 | XMS_ITS | Encounter Summary ---
Author Organization [employer] Care Team Providers Care Lumber Tallier Name Role Phone Gayla Barker CREDIT RISK MANAGEMENT DIRECTOR, SUPERVISOR FERTILIZER PROCESSING Primary Care Provider Ct, [facility] Unavailable Marianela vailable Encounter Details Date Type Department Care Team (Latest Contact Info) Description 11/14/2021 Travel Social History Tobacco Use Types Packs/Day [...] on file Legal Sex Female 10:27 AM PIPED POCKET MACHINE OPERATOR Gender Identity Not on file [...] Depression Total Score: 0 03/25/19 10:00 AM PIPED POCKET MACHINE OPERATOR documented as of this encounter Care Teams Lumber Tallier Relationship Specialty Start Date End Date Gayla Barker, CREDIT RISK MANAGEMENT DIRECTOR, SUPERVISOR FERTILIZER PROCESSING [address] [place] [address] PCP - General Advanced Practice Nurse 03/25/19 Ct, [facility] [place] 09/03/19 documented as of this encounter
--- OUTSIDE RECORDS SUMMARY | 2024-02-24 19:43 | XMS_ITS | Encounter Summary ---
Author Organization [facility] Address [address] [place] [address] Phone Care Team Providers Care Claims Adjuster Name Role Phone Gayla Barker APRN, CHARTERED FINANCIAL ANALYST Primary Care Provider Ct, [facility] Unavailable Marianela vailable Reason for Visit * Reason Onset Date Comments Medication Management 02/09/2021 Encounter Details Date Type Department Care Team (Late st Contact Info) Description 02/09/2021 [facility] [address] [place] [address] Nahomi Ontiveros APRN, CHARTERED FINANCIAL ANALYST [address] [place] [address] Medication Management Social History Tobacco Use Types [...] on file Legal Sex Female 10:27 AM LIGHTING DIRECTOR Gender Identity Not on file Sexual Orientation Not on file COVID-19 Exposure Response Date Recorded In the last month, have you been in contact with someone who was confirmed or suspected to have Coronavirus / COVID-19? No / Unsure 02/12/2021 1:48 PM LIGHTING DIRECTOR documented as of this encounter Miscellaneous Notes * Telephone Encounter - Khushbu Watters RN - 02/09/2021 9:42 AM CST Patient called with several questions for Nahomi Ontiveros DNP, FAMILY RESOURCE COORDINATOR-C She is asking for urine culture results from 02/04/2021 and is any medications need to be rx'd as she is having a constant bladder discomfort. She also stated she has a breast US one day ago and a mass was noted, she is asking if she should see a general surgeon or breast surgeon for a biopsy. She does have an appoint with general surgery tomorrow. She is also asking how to get breast milk to dry up. TING DIRECTOR documented in this encounter Plan of Treatment Not on file documented as of this encounter Visit Diagnoses Not on filedocumented in this encounter Additional Health Concerns Assessment Noted Time PHQ-9 Depression Total Score: 0 03/25/19 10:00 AM LIGHTING DIRECTOR documented as of this encounter Care Teams Claims Adjuster Relationship Specialty Start Date End Date Gayla Barker, VIDEO CONTROL OPERATOR, CHARTERED FINANCIAL ANALYST [address] [place] [address] PCP - General Advanced Practice Nurse 03/25/19 Ct, [facility] [place] [facility] [place] 09/03/19 documented as of this encounter
--- OUTSIDE RECORDS SUMMARY | 2024-02-24 19:43 | XMS_ITS | Encounter Summary ---
Author Organization [facility] Address [address] [place] [address] Phone Care Team Providers Care Dope Edger Name Role Phone Gayla Barker APRN, HARSHA Primary Care Provider Ct, Acute Covid At Home Care Unavailable Marianela vailable Reason for Visit * Reason Comments Urinary Pain Encounter Details Date Type Department Care Team (Latest Contact Info) Description 02/12/2021 1:50 PM HEALTH AND WELLNESS COACH [facility] [place] [address] [place] [address] Brandy Gaitan APRN, PUMP RUNNER [address] [place] [address] Dysuria (Primary Dx); Possible ; BV (bacterial vaginosis) Discharge Disposition: Discharged to home or Selfcare [...] file Legal Sex Female 10:27 AM HEALTH AND WELLNESS COACH Gender Identity Not on file Sexual Orientation Not on file COVID-19 Exposure Response Date Recorded In the last month, have you been in contact with someone who was confirmed or suspected to have Coronavirus / COVID-19? No / Unsure 02/12/2021 1:48 PM HEALTH AND WELLNESS COACH documented as of this encounter Last Filed Vital Signs Vital Sign Reading Time Taken Comments Blood Pressure 126/78 02/12/2021 2:40 PM HEALTH AND WELLNESS COACH Pulse 62 02/12/2021 2:40 PM HEALTH AND WELLNESS COACH Temperature 36.4 ??C (97.5 ??F) 02/12/2021 2:40 PM CS T Respiratory Rate 16 02/12/2021 2:40 PM HEALTH AND WELLNESS COACH Oxygen Saturation 98% 02/12/2021 2:40 PM HEALTH AND WELLNESS COACH Inhaled Oxygen Concentration - - Weight - - Height - - Body Mass Index - - documented in this encounter Patient Instructions * Patient Instructions* Brandy Gaitan, ANNIE, HARSHA - 02/12/2021 1:50 PM HEALTH AND WELLNESS COACH Images from the original note were not included. Bacterial Vaginosis Bacterial vaginosis is an infection of the vagina. It happens when too many normal germs (healthy bacteria) grow in the vagina. This infection can make it easier to get other infections from sex (STIs). It is very important for women to get treated. This infection can cause babies to be born early or at a low weight. What are the causes? This infection is caused by an increase in certain germs that grow in the vagina. You cannot get this infection from toilet seats, bedsheets, swimming pools, or things that touch your vagina. What increases the risk? ?? Having sex with a new person or more than one person. ?? Having sex without protection. ?? Douching. ?? Having an intrauterine device (IUD). ?? Smoking. ?? Using drugs or drinking alcohol. These can lead you to do things that are risky. ?? Taking certain antibiotic medicines. ?? Being . What are the signs or symptoms? Some women have no symptoms. Symptoms may include: ?? A discharge from your vagina. It may be tejeda or white. It can be watery or foamy. ?? A fishy smell. This can happen after sex or during your menstrual period. ?? Itching in and around your vagina. ?? A feeling of burning or pain when you pee (urinate). How is this treated? This infection is treated with antibiotic medicines. These may be given to you as: ?? A pill. ?? A cream for your vagina. ?? A medicine that you put into your vagina (suppository). If the infection comes back after treatment, you may need more antibiotics. Follow these instructions at home: Medicines ?? Take gyqf-ykt-uzmqfjd and prescription medicines as told by your doctor. ?? Take or use your antibiotic medicine as told by your doctor. Do not stop taking or using it, even if you start to feel better. General instructions ?? If the person you have sex with is a woman, tell her that you have this infection. She will needto follow up with her doctor. If you have a male partner, he does not need to be treated. ?? Do not have sex until you finish treatment. ?? Drink enough fluid to keep your pee pale yellow. ?? Keep your vagina and butt clean. ? Wash the area with warm water each day. ? Wipe from front to back after you use the toilet. ?? If you are a baby, ask your doctor if you should keep doing so during treatment. ?? Keep all follow-up visits. How is this prevented? Self-care ?? Do not douche. ?? Use only warm water to wash around your vagina. ?? Wear underwear that is cotton or lined with cotton. ?? Do not wear tight pants and pantyhose, especially in the summer. Safe sex ?? Use protection when you have sex. This includes: ? Use condoms. ? Use dental dams. This is a thin layer that protects the mouth during oral sex. ?? Limit how many people you have sex with. To prevent this infection, it is best to have sex with just one person. ?? Get tested for STIs. The person you have sex with should also get tested. Drugs and alcohol ?? Do not smoke or use any products that contain nicotine or tobacco. If you need help quitting, ask your doctor. ?? Do not use drugs. ?? Do not drink alcohol if: ? Your doctor tells you not to drink. ? You are , may be , or are planning to become . ?? If you drink alcohol: ? Limit how much you have to 0-1 drink a day. ? Know how much alcohol is in your drink. In the [place] one drink equals one 12 oz bottle of beer (355 mL), one 5 oz glass of wine (148 mL), or one 1?? oz glass of hard liquor (44 mL). Where to find more information ?? Centers for Disease Control and Prevention: www.cdc.gov ?? [place] [employer] Health Association: www.ashastd.org ?? Office on Women's Health: www.womenshealth.gov Contact a doctor if: ?? Your symptoms do not get better, even after you are treated. ?? You have more discharge or pain when you pee. ?? You have a fever or chills. ?? You have pain in your belly (abdomen) or in the area between your hips. ?? You have pain with sex. ?? You bleed from your vagina between menstrual periods. Summary ?? This infection can happen when too many germs (bacteria) grow in the vagina. ?? This infection can make it easier to get infections from sex (STIs). Treating this can lower that chance. ?? Get treated if you are . This infection can cause babies to be born early. ?? Do not stop taking or using your antibiotic medicine, even if you start to feel better. This information is not intended to replace advice given to you by your health care provider. Make sure you discuss any questions you have with your health care provider. Document Revised: 08/12/2020 Document Reviewed: 08/12/2020 [employer] Patient Education ?? 2020 [employer] Increase the amount of fluids that you are drinking. Water, Pedialyte, Gatorade or Powerade are thebest choices. Rest or nap frequently to help your body recover. Care as instructed on AVS If medication was prescribed it was sent to the pharmacy. Take all medication as prescribed. Do not skip a dose and take until completed. Follow up with PCP if the symptoms do not improve Go to the ER if symptoms become severe TH AND WELLNESS COACH TH AND WELLNESS COACH documented in this encounter Progress Notes * Cirilo Saleh - 02/12/2021 1:50 PM CST Carito Madison complains of Dysuria. Pt states symptoms started about two weeks ago. Pt states she had a about 6 weeks ago. Pt states pain is 4/10 but gets worse at night. Urinary Pain This is a new problem. Episode onset: 2 weeks ago. The problem has been gradually worsening. The pain is at a severity of 4/10. There has been no fever. Treatments tried: keflex and difulcan. The treatment provided no relief. Today's Review of Systems Genitourinary: Positive for dysuria. TH AND WELLNESS COACH * Brandy Gaitan APRN, PUMP RUNNER - 02/12/2021 1:50 PM CST Images from the original note were not included. HPI: Carito Madison is a 30 y.o. female in the prompt care today for urinary pain. Symptoms started 2 weeks ago Severity of symptoms is moderate with pain level of 4/10 Associated symptoms include pain at site at times Patient is currently taking over the counter keflex and diflucan for the symptoms. Smoker: Former 6 weeks post scar without problems No pertinent Past, family, or social history was noted Patient Active Problem List Diagnosis ??? Herpes [...] generalized (HCC) ??? Adrenal insufficiency (HCC) ??? Anti-MANAGER ACCESS antibodies present ??? Microcytic anemia ??? Bilateral chronic serous otitis media ROS: Review of Systems Constitutional: Negative for appetite change, chills, fatigue and fever. Genitourinary: Positive for dysuria and pelvic pain (lower ). Negative for urgency. PE: BP 126/78 (BP Location: Right Arm, BP Position: Sitting, BP Cuff Size: Regular) Pulse 62 Temp 97.5 ??F (36.4 ??C) (Temporal) Resp 16 LMP 02/27/2020 (Approximate) SpO2 98% Physical Exam ASSESSMENT/PLAN: 1. Dysuria - POCT UA AUTOMATED W/O MICRO Negative - CULTURE, URINE - Increase PO fluids 2. Possible - POCT URINE HCG () Negative 3. BV (bacterial vaginosis) - metroNIDAZOLE (METROGEL) 0.75 % Gel; 1 Applicatorful by Vaginal route nightly for 5 days. Dispense: 70 g; Refill: 0 AVS from today was printed, discussed with patient/family and given to patient/family Patient Instructions Bacterial Vaginosis Bacterial vaginosis is an infection of the vagina. It happens when too many normal germs (healthy bacteria) grow in the vagina. This infection can make it easier to get other infections from sex (STIs). It is very important for women to get treated. This infection can cause babies to be born early or at a low weight. What are the causes? This infection is caused by an increase in certain germs that grow in the vagina. You cannot get this infection from toilet seats, bedsheets, swimming pools, or things that touch your vagina. What increases the risk? ?? Having sex with a new person or more than one person. ?? Having sex without protection. ?? Douching. ?? Having an intrauterine device (IUD). ?? Smoking. ?? Using drugs or drinking alcohol. These can lead you to do things that are risky. ?? Taking certain antibiotic medicines. ?? Being . What are the signs or symptoms? Some women have no symptoms. Symptoms may include: ?? A discharge from your vagina. It may be tejeda or white. It can be watery or foamy. ?? A fishy smell. This can happen after sex or during your menstrual period. ?? Itching in and around your vagina. ?? A feeling of burning or pain when you pee (urinate). How is this treated? This infection is treated with antibiotic medicines. These may be given to you as: ?? A pill. ?? A cream for your vagina. ?? A medicine that you put into your vagina (suppository). If the infection comes back after treatment, you may need more antibiotics. Follow these instructions at home: Medicines ?? Take ganl-vlx-khyqvya and prescription medicines as told by your doctor. ?? Take or use your antibiotic medicine as told by your doctor. Do not stop taking or using it, even if you start to feel better. General instructions ?? If the person you have sex with is a woman, tell her that you have this infection. She will needto follow up with her doctor. If you have a male partner, he does not need to be treated. ?? Do not have sex until you finish treatment. ?? Drink enough fluid to keep your pee pale yellow. ?? Keep your vagina and butt clean. ? Wash the area with warm water each day. ? Wipe from front to back after you use the toilet. ?? If you are a baby, ask your doctor if you should keep doing so during treatment. ?? Keep all follow-up visits. How is this prevented? Self-care ?? Do not douche. ?? Use only warm water to wash around your vagina. ?? Wear underwear that is cotton or lined with cotton. ?? Do not wear tight pants and pantyhose, especially in the summer. Safe sex ?? Use protection when you have sex. This includes: ? Use condoms. ? Use dental dams. This is a thin layer that protects the mouth during oral sex. ?? Limit how many people you have sex with. To prevent this infection, it is best to have sex with just one person. ?? Get tested for STIs. The person you have sex with should also get tested. Drugs and alcohol ?? Do not smoke or use any products that contain nicotine or tobacco. If you need help quitting, ask your doctor. ?? Do not use drugs. ?? Do not drink alcohol if: ? Your doctor tells you not to drink. ? You are , may be , or are planning to become . ?? If you drink alcohol: ? Limit how much you have to 0-1 drink a day. ? Know how much alcohol is in your drink. In the [place] one drink equals one 12 oz bottle of beer (355 mL), one 5 oz glass of wine (148 mL), or one 1?? oz glass of hard liquor (44 mL). Where to find more information ?? Centers for Disease Control and Prevention: www.cdc.gov ?? [place] Sexual Health Association: www.ashastd.org ?? Office on Women's Health: www.womenshealth.gov Contact a doctor if: ?? Your symptoms do not get better, even after you are treated. ?? You have more discharge or pain when you pee. ?? You have a fever or chills. ?? You have pain in your belly (abdomen) or in the area between your hips. ?? You have pain with sex. ?? You bleed from your vagina between menstrual periods. Summary ?? This infection can happen when too many germs (bacteria) grow in the vagina. ?? This infection can make it easier to get infections from sex (STIs). Treating this can lower that chance. ?? Get treated if you are . This infection can cause babies to be born early. ?? Do not stop taking or using your antibiotic medicine, even if you start to feel better. This information is not intended to replace advice given to you by your health care provider. Make sure you discuss any questions you have with your health care provider. Document Revised: 08/12/2020 Document Reviewed: 08/12/2020 [employer] Patient Education ?? 2020 [employer] Increase the amount of fluids that you are drinking. Water, Pedialyte, Gatorade or Powerade are thebest choices. Rest or nap frequently to help your body recover. Care as instructed on AVS If medication was prescribed it was sent to the pharmacy. Take all medication as prescribed. Do not skip a dose and take until completed. Follow up with PCP if the symptoms do not improve Go to the ER if symptoms become severe Chief complaint and all history documented by ancillary staff were reviewed and verified, with additions or corrections, as appropriate. TH AND WELLNESS COACH documented in this encounter Plan of Treatment Not on file documented as of this encounter Procedures Procedure Name Priority Date/Time Associated Diagnosis Comments CULTURE, URINE Routine 02/12/2021 5:57 PM HEALTH AND WELLNESS COACH Dysuria POCT UA AUTOMATED W/O MICRO Routine 02/12/2021 2:37 PM HEALTH AND WELLNESS COACH Dysuria POCT URINE HCG () Routine 02/12/2021 2:36 PM HEALTH AND WELLNESS COACH Possible documented in this encounter Results * CULTURE, URINE (02/12/2021 5:57 PM HEALTH AND WELLNESS COACH) [facility] CULTURE RESULTS NO GROWTH WITHIN 1 DAY 02/14/2021 3:19 PM HEALTH AND WELLNESS COACH [facility] Culture URINE SPECIMEN / Unknown Non-Phlebotomy Collection / Unknown 02/12/2021 5:57 PM HEALTH AND WELLNESS COACH 02/12/2021 5:57 PM HEALTH AND WELLNESS COACH Brandy Gaitan APRN, PUMP RUNNER MICROBIOLOGY - GENE RAL ORDERABLES Final Result Performing Organization Address City/State/[facility] Co de Phone Number [facility] [address] [place] [address], * (ABNORMAL) POCT UA AUTOMATED W/O MICRO (02/12/2021 2:37 PM HEALTH AND WELLNESS COACH) [facility] POC UA SPECIFIC GRAVITY 1.020 URINE PH 5.0 5.0 - 9.0 UR, LEUKOCYTES Negative Negative Murphy/uL UR, NITRITE Negative Negative UR, PROTEIN Trace(A) Negative mg/dL UR, GLUCOSE Normal Normal mg/dL UR, KETONE Negative Negative mg/dL UR, UROBILINOGEN Normal Normal mg/dL UR, BILIRUBIN Negative Negative mg/dL UR. BLOOD Trace(A) Negative URINALYSIS COLOR Dark Yellow URINALYSIS CLARITY Clear Urine 02/12/2021 2:37 PM HEALTH AND WELLNESS COACH us Brandy Gaitan APRN, PUMP RUNNER POINT OF CARE TESTI NG (MANUAL) Final Result * POCT URINE HCG () (02/12/2021 2:36 PM HEALTH AND WELLNESS COACH) [facility] POC URINE Negative POC URINE CONTROL Rn Enterostomal Pass Urine 02/12/2021 2:36 PM HEALTH AND WELLNESS COACH Brandy Gaitan WALLPAPER INSTALLER, PUMP RUNNER POINT OF CARE TESTI ELAINE (MANUAL) Final Result documented in this encounter Visit Diagnoses Diagnosis Dysuria- Primary Possible examination or test, unconfirmed BV (bacterial vaginosis) Vaginitis and vulvovaginitis, unspecified documented in this encounter Additional Health Concerns Assessment Noted Time PHQ-9 Depression Total Score: 0 03/25/19 10:00 AM HEALTH AND WELLNESS COACH documented as of this encounter Care Teams Dope Edger Relationship Specialty Start Date End Date Gayla Barker, WALLPAPER INSTALLER, PUMP RUNNER [address] [place] [address] PCP - General Advanced Practice Nurse 03/25/19 Ct, [facility] Home [facility] [place] [employer] 09/03/19 documented as of this encounter
--- OUTSIDE RECORDS SUMMARY | 2024-02-24 19:43 | XMS_ITS | Encounter Summary ---
Author Organization [facility] Address [address] [place] [address] Phone Care Team Providers Care Mat Inspector Name Role Phone Gayla Barker APRN, BOOT TURNER Primary Care Provider Ct, Acute Covid At Home Care Unavailable Marianela vailable Reason for Visit * Reason Comments Breast Mass Encounter Details Date Type Department Care Team (Late st Contact Info) Description 02/04/2021 10:05 AM GRAVEL MACHINE OPERATOR [facility] [place] [address] [place] [address] Nahomi Louis APRN, BOOT TURNER [address] [place] [address] Mastitis (Primary Dx); Yeast infection Discharge Disposition: Discharged to home or Selfcare [...] on file Legal Sex Female 10:27 AM GRAVEL MACHINE OPERATOR Gender Identity Not on file Sexual Orientation Not on file COVID-19 Exposure Response Date Recorded In the last month, have you been in contact with someone who was confirmed or suspected to have Coronavirus / COVID-19? No / Unsure 02/04/2021 10:03 AM GRAVEL MACHINE OPERATOR documented as of this encounter Progress Notes * Ian Bonner RMA - 02/04/2021 10:05 AM CST Carito Madison complains of Mass in right breast. She mentioned that she is currently breast feeding. Would also like a urinalysis for bladder pain (dysuria). Breast Mass Chronicity: New Associated Symptoms: breast mass Affected side: Right Episode onset: two weeks ago. Currently : No (delivered 5 weeks ago) History of hormonal contraceptive use: no History of hormone replacement therapy: no Practices self breast exam: yes Treatments tried: None EL MACHINE OPERATOR documented in this encounter H&P Notes * Nahomi Louis APRN, CNP - 02/04/2021 10:05 AM CST Images from the original note were not included. Subjective: Carito Madison is a 30 y.o. female in the [facility] care today for breast tenderness and lump Symptoms started 01/23/2021 is 5 weeks old, she was born [birth year] Severity of symptoms is worsening Associated symptoms include pain, lump. Denies redness Exclusively pumping, every 3.5 hours Cephalexin on 01/23/2021 to 01/26/2021 for mastitis. Was concerned abx was upsetting baby's stomach.Was not seen for this, prescribed over the phone No pertinent Past, family, or social history was noted Review of Systems Genitourinary: Positive for dysuria and vaginal discharge (white). Breast tenderness All other systems reviewed and are negative. Objective: Physical Exam Vitals and nursing note reviewed. Constitutional: Appearance: Normal appearance. HENT: Head: Normocephalic and atraumatic. Cardiovascular: Rate and Rhythm: Normal rate. Pulmonary: Effort: Pulmonary effort is normal. Chest: Breasts: Right: Mass and tenderness present. Musculoskeletal: General: Normal range of motion. Cervical back: Normal range of motion. Skin: General: Skin is warm and dry. Neurological: Mental Status: She is alert and oriented to person, place, and time. Psychiatric: Mood and Affect: Mood normal. Behavior: Behavior normal. Thought Content: Thought content normal. Judgment: Judgment normal. Assessment and Plan 1. Mastitis Lump feels ductal, likely plugged duct from , Less likely abscess vs mastitis. Will treat with keflex Discussed applying warmth and performing breast massage prior to and during pumping. Discussed adjustment of pump settings to increase emptying of breast Patient to follow up on Sunday if symptoms persist will order breast ultrasound - cephALEXin (KEFLEX) 500 MG Capsule; Take 1 Capsule by mouth 2 times daily for 10 days. Dispense: 20 Capsule; Refill: 0 2. Yeast infection Diflucan as prescribed - fluconazole (DIFLUCAN) 150 MG Tablet; Take 1 Tablet by mouth once for 1 dose. Repeat dose in 72 hours Dispense: 2 Tablet; Refill: 0 - POCT UA AUTOMATED W/O MICRO - CULTURE, URINE 3. Dysuria Urine culture sent to lab Will call with results Keflex as prescribed EL MACHINE OPERATOR documented in this encounter Miscellaneous Notes * Addendum Note - Nahomi Louis APRN, CNP - 02/04/2021 10:05 AM GRAVEL MACHINE OPERATOR Addended by: NAHOMI LOUIS on: 02/07/2021 08:04 AM Modules accepted: Orders EL MACHINE OPERATOR documented in this encounter Plan of Treatment Not on file documented as of this encounter Procedures Procedure Name Priority Date/Time Associated Diagnosis Comments CULTURE, URINE Routine 02/04/2021 11:19 AM GRAVEL MACHINE OPERATOR Yeast infection POCT UA AUTOMATED W/O MICRO Routine 02/04/2021 10:48 AM GRAVEL MACHINE OPERATOR Yeast infection documented in this encounter Results * CULTURE, URINE (02/04/2021 11:19 AM GRAVEL MACHINE OPERATOR) CULTURE RESULTS MIXED GROWTH OF ONE OR MORE DISTAL URETHRAL CONTAMINANTS 02/05/2021 4:08 PM GRAVEL MACHINE OPERATOR [facility] Culture URINE SPECIMEN / Unknown Non-Phlebotomy Collection / Unknown 02/04/2021 11:19 AM GRAVEL MACHINE OPERATOR 02/04/2021 11:19 AM GRAVEL MACHINE OPERATOR Nahomi Ambrocio ANNIE, HARSHA MICROBIOLOGY - GE NERAL ORDERABLES Final Result [facility] [address] [place] [address], [place] * (ABNORMAL) POCT UA AUTOMATED W/O MICRO (02/04/2021 10:48 AM GRAVEL MACHINE OPERATOR) Pathologist [facility] POC UA SPECIFIC GRAVITY 1.025 URINE PH 5.0 5.0 - 9.0 UR, LEUKOCYTES Negative Negative Murphy/uL UR, NITRITE Negative Negative UR, PROTEIN Trace(A) Negative mg/dL UR, GLUCOSE Normal Normal mg/dL UR, KETONE Negative Negative mg/dL UR, UROBILINOGEN Normal Normal mg/dL UR, BILIRUBIN Negative Negative mg/dL UR. BLOOD Negative Negative URINALYSIS COLOR Dark Yellow URINALYSIS CLARITY Clear Urine 02/04/2021 10:4 8 AM GRAVEL MACHINE OPERATOR Nahomi Louis APRN, HARSHA POINT OF CARE MARY LOU TING (MANUAL) Final Result documented in this encounter Visit Diagnoses Diagnosis Mastitis- Primary Inflammatory disease of breast Yeast infection Other and unspecified mycoses documented in this encounter Additional Health Concerns Assessment Noted Time PHQ-9 Depression Total Score: 0 03/25/19 20 10:00 AM GRAVEL MACHINE OPERATOR documented as of this encounter Care Teams Mat Inspector Relationship Specialty Start Date End Date Gayla Barker, ANNIE, BOOT TURNER [address] [place] [address] PCP - General Advanced Practice Nurse 03/25/19 Ct, Acute [facility] Home [facility] [place] [employer] 09/03/19 documented as of this encounter
--- OUTSIDE RECORDS SUMMARY | 2024-02-24 19:43 | XMS_ITS | Encounter Summary ---
Author Organization [employer] Care Team Providers Care Automotive Parts Interpreter Name Role Phone Gayla Barker BOXING INSPECTOR, FLIGHT ATTENDANT/INFLIGHT MANAGER Primary Care Provider Ct, Acute Covid At Home Care Unavailable Marianela vailable Encounter Details Date Type Department Care Team (Latest Contact Info) Description 04/19/2021 Travel Social History Tobacco Use Types Packs/Day [...] on file Legal Sex Female 10:27 AM BUS BOY Gender Identity Not on file Sexual Orientation Not on file COVID-19 Exposure Response Date Recorded In the last month, have you been in contact with someone who was confirmed or suspected to have Coronavirus / COVID-19? No / Unsure 04/19/2021 11:30 AM BUS BOY documented as of this encounter Plan of Treatment Not on file documented as of this encounter Visit Diagnoses Not on filedocumented in this encounter Additional Health Concerns Assessment Noted Time PHQ-9 Depression Total Score: 0 03/25/19 20 10:00 AM BUS BOY documented as of this encounter Care Teams Automotive Parts Interpreter Relationship Specialty Start Date End Date Gayla Barker, BOXING INSPECTOR, FLIGHT ATTENDANT/INFLIGHT MANAGER [address] [place] [address] PCP - General Advanced Practice Nurse 03/25/19 Ct, [facility] [place] 09/03/19 documented as of this encounter
--- OUTSIDE RECORDS SUMMARY | 2024-02-24 19:43 | XMS_ITS | Encounter Summary ---
Author Organization [employer] Care Team Providers Care Blackjack Pit Boss Name Role Phone Gayla Barker ELECTRICAL DESIGN TECHNOLOGIST, METROLOGY ENGINEER Primary Care Provider Ct, Acute Covid At Home Care Unavailable Marianela vailable Encounter Details Date Type Department Care Team (Latest Contact Info) Description 06/25/2021 Travel Social History Tobacco Use Types Packs/Day [...] on file Legal Sex Female 10:27 AM RAILROAD MAINTENANCE CLERK Gender Identity Not on file Sexual Orientation Not on file COVID-19 Exposure Response Date Recorded In the last 10 days, have yo u been in contact with someone who was confirmed or suspected to have Coronavirus/COVID-19? No / Unsure 06/25/2021 5:40 PM CDT documented as of this encounter Plan of Treatment Not on file documented as of this encounter Visit Diagnoses Not on filedocumented in this encounter Additional Health Concerns Assessment Noted Time PHQ-9 Depression Total Score: 0 03/25/19 20 10:00 AM RAILROAD MAINTENANCE CLERK documented as of this encounter Care Teams Blackjack Pit Boss Relationship Specialty Start Date End Date Gayla Barker, ELECTRICAL DESIGN TECHNOLOGIST, METROLOGY ENGINEER [address] [place] [address] PCP - General Advanced Practice Nurse 03/25/19 Ct, [place] [facility] [place] 09/03/19 documented as of this encounter
--- OUTSIDE RECORDS SUMMARY | 2024-02-24 19:43 | XMS_ITS | Encounter Summary ---
Author Organization [facility] Address [address] [place] [address] Phone Care Team Providers Care Director Of Restaurants Name Role Phone Gayla Barker APRN, HARSHA Primary Care Provider Ct, Acute Covid At Home Care Unavailable Marianela vailable Reason for Visit * Reason Comments Medication Refill Encounter Details Date Type Department Care Team (Late st Contact Info) Description 07/21/2021 Refill [facility] - Primary Care - [place] [address] [place] [address] aGyla Barker APRN, MAIL SUPERINTENDENT [address] [place] [address] Medication Refill Social History Tobacco [...] on file Legal Sex Female 10:[address] Gender Identity Not on file Sexual Orientation Not on file COVID-19 Exposure Response Date Recorded In the last 10 days, have yo u been in contact with someone who was confirmed or suspected to have Coronavirus/COVID-19? No / Unsure 07/06/2021 7:41 AM CDT documented as of this encounter Miscellaneous Notes * Telephone Encounter - Adina Flores RN - 07/21/2021 8:56 AM CDT Medication approved and signed per standing order protocol. documented in this encounter Plan of Treatment Not on file documented as of this encounter Visit Diagnoses Not on filedocumented in this encounter Additional Health Concerns Assessment Noted Time PHQ-9 Depression Total Score: 0 03/25/19 10:[address] documented as of this encounter Care Teams Director Of Restaurants Relationship Specialty Start Date End Date Gayla Barker, PULP BLEACHER, MAIL SUPERINTENDENT [address] [place] [address] PCP - General Advanced Practice Nurse 03/25/19 Ct, [facility] [place] 09/03/19 documented as of this encounter
--- OUTSIDE RECORDS SUMMARY | 2024-02-24 19:43 | XMS_ITS | Encounter Summary ---
Author Organization [facility] Address [address] [place] [address] Phone Care Team Providers Care Director Museum Or Zoo Name Role Phone Gayla Barker APRN, BRANCH RETAIL EXECUTIVE Primary Care Provider Ct, Acute Covid At Home Care Unavailable Marianela vailable Encounter Details Date Type Department Care Team (Late st Contact Info) Description 10/25/2021 Telephone [facility] - [place] [address] [place] [address] Chitra Kaur APRN, BRANCH RETAIL EXECUTIVE [address] [place] [address] Social History Tobacco Use Types Packs/Day Years [...] file Legal Sex Female 10:27 AM CLINICAL SUPPORT SPECIALIST Gender Identity Not on file Sexual Orientation Not on file COVID-19 Exposure Response Date Recorded In the last 10 days, have yo u been in contact with someone who was confirmed or suspected to have Coronavirus/COVID-19? No / Unsure 10/20/2021 2:11 PM CDT documented as of this encounter Miscellaneous Notes * Telephone Encounter - Chitra Kaur APRN, CNP - 10/25/2021 3:44 PM CDT Patient called for urine culture results. Culture did grow back staph. Sensitivity was reviewed antibiotic sent to the pharmacy Allergies were verified and patient denies breast feeding. documented in this encounter Plan of Treatment Not on file documented as of this encounter Visit Diagnoses Diagnosis Acute cystitis without hematuria- Primary Acute cystitis documented in this encounter Additional Health Concerns Assessment Noted Time PHQ-9 Depression Total Score: 0 03/25/19 20 10:00 AM CLINICAL SUPPORT SPECIALIST documented as of this encounter Care Teams Director Museum Or Zoo Relationship Specialty Start Date End Date Gayla Barker APRN, CNP [address] [place] [address] PCP - General Advanced Practice Nurse 03/25/19 Ct, [facility] [place] 09/03/19 documented as of this encounter
--- OUTSIDE RECORDS SUMMARY | 2024-02-24 19:43 | XMS_ITS | Encounter Summary ---
Author Organization [facility] Address [address] [place] [address] Phone Care Team Providers Care Wood Products Manufacturer Name Role Phone Gayla Barker APRN, GAMB CUTTER Primary Care Provider Ct, Acute Covid At Home Care Unavailable Marianela vailable Reason for Visit * Reason Comments Vaginal Discharge Encounter Details Date Type Department Care Team (Late st Contact Info) Description 10/20/2021 2:15 PM CDT Urgent Care [facility] [address] [place] [address] Chitra Kaur APRN, GAMB CUTTER [address] [place] [address] Vaginal discharge (Primary Dx); Polyuria Discharge Disposition: Discharged to home or Selfcare [...] on file Legal Sex Female 10:27 AM REGULATORY COMPLIANCE DIRECTOR Gender Identity Not on file Sexual Orientation Not on file COVID-19 Exposure Response Date Recorded In the last 10 days, have yo u been in contact with someone who was confirmed or suspected to have Coronavirus/COVID-19? No / Unsure 10/20/2021 2:11 PM CDT documented as of this encounter Last Filed Vital Signs Vital Sign Reading Time Taken Comments Blood Pressure 112/64 10/20/2021 2:44 PM CDT Pulse 74 10/20/2021 2:44 PM CDT Temperature 36.6 ??C (97.8 ??F) 10/20/2021 2:44 PM CD T Respiratory Rate 20 10/20/2021 2:44 PM CDT Oxygen Saturation 97% 10/20/2021 2:44 PM CDT Inhaled Oxygen Concentration - - Weight 77.6 kg (171 lb) 10/20/2021 2:44 PM CDT Height - - Body Mass Index 31.28 10/13/2021 7:14 AM CDT documented in this encounter Progress Notes * Khushbu Watters RN - 10/20/2021 2:15 PM CDT Carito Madison complains of One week history of odorless white discharge. She has had two doses of diflucan with no improvement She has metronidazole gel called into the pharmacy. Vaginal Discharge The patient's primary symptoms include vaginal discharge. This is a new problem. The current episode started in the past 7 days. The problem has been gradually worsening. Associated symptoms include frequency. Today's Review of Systems Genitourinary: Positive for frequency and vaginal discharge. Vaginal itching with discharge * Khushbu Watters RN - 10/20/2021 2:15 PM CDT Urine culture sent to [facility] * Chitra Kaur APRN, GAMB CUTTER - 10/20/2021 2:15 PM CDT Subjective: Carito Madison is a 31 y.o. female in the clinic for concern of vaginal discharge and itching. She states that she has a history of BV and yeast. She states that she has taken diflucan with no improvement. She reports that she has metronidazole gel at the pharmacy. She is going to pick it up. She reports no concern for STDs today. She is unsure of her last menstrual date and would like a test. She has no fevers, abdominal pain, or flank pain. Chief complaint, ROS, and all history documented by ancillary staff, and any copy/pasted information were reviewed and verified, with additions or corrections, as appropriate. Available past family, social, medical history was reviewed. Review of Systems Genitourinary: Positive for vaginal pain (itching and discharge). Objective: Physical Exam Vitals and nursing note reviewed. Constitutional: General: She is not in acute distress. Genitourinary: Comments: Patient declined Neurological: Mental Status: She is alert. Vitals: 10/20/21 1444 BP: 112/64 BP Location: Right Arm BP Position: Sitting BP Cuff Size: Large Pulse: 74 Resp: 20 Temp: 97.8 ??F (36.6 ??C) TempSrc: Temporal SpO2: 97% Weight: 171 lb (77.6 kg) Patient declined a vaginal exam today. UA was abnormal. Urine culture was sent. Urine test was negative Assessment and Plan See Diagnoses, Orders, Follow-up, and Instructions Diagnoses and all orders for this visit: Vaginal discharge Comments: take the medication for BV that is at the pharmacy. Orders: - POCT UA AUTOMATED W/O MICRO - POCT URINE HCG () - CULTURE, URINE Polyuria - POCT UA AUTOMATED W/O MICRO - POCT URINE HCG () - CULTURE, URINE Care as instructed on AVS If medication was prescribed it was sent to the pharmacy. Take all medication as prescribed. Do not skip a dose and take until completed. Follow up with PCP if the symptoms do not improve Go to the ER if symptoms become severe AVS from today was printed, discussed with patient/family and given to patient/family * Chitra Kaur APRN, CNP - 10/20/2021 2:15 PM CDT Urine culture grew back strep. Will treat with cipro. Let patient know documented in this encounter Plan of Treatment Not on file documented as of this encounter Procedures Procedure Name Priority Date/Time Associated Diagnosis Comments CULTURE, URINE Routine 10/20/2021 3:25 PM CDT Vaginal discharge Polyuria POCT UA AUTOMATED W/O MICRO Routine 10/20/2021 2:50 PM CDT Vaginal discharge Polyuria POCT URINE HCG () Routine 10/20/2021 2:49 PM CDT Vaginal discharge Polyuria documented in this encounter Results * CULTURE, URINE (10/20/2021 3:25 PM CDT) CULTURE RESULTS GROUP B STREPTOCOCCUS 10/25/2021 10:36 AM CDT [facility] Culture URINE SPECIMEN COLLECTION, CLEAN CATCH / Unknown Non-Phlebotomy Collection / Unknown 10/20/2021 3:25 PM CDT 10/20/2021 3:25 PM CDT Narrative Organism Antibiotic Method Susceptibility Streptococcus agalactiae Ampicillin [facility] V[facility] II <=0.25 mcg/ml: Susceptible Streptococcus agalactiae Benzylpenicillin [facility] I I <=0.12 mcg/ml: Susceptible Streptococcus agalactiae Levofloxacin [facility] II 0.5 mcg/ml: Susceptible Streptococcus agalactiae Vancomycin [facility] II <=0.5 mcg/ml: Susceptible us Chitra Kaur APRN, CNP MICROBIOLOGY - GE NERAL ORDERABLES Final Result [facility] [address] [place] [address], * (ABNORMAL) POCT UA AUTOMATED W/O MICRO (10/20/2021 2:50 PM CDT) POC UA SPECIFIC GRAVITY 1.025 URINE PH 6.0 5.0 - 9.0 POC URINE LEUKOCYTES 25 /ul(A) Negative Murphy/uL POC URINE NITRITE Negative Negative POC URINE PROTEIN Negative Negative mg/dL POC URINE GLUCOSE Norm Negative, Norm mg/dL POC URINE KETONE Negative Negative mg/dL POC URINE UROBILINOGEN Norm Norm, 0.2 mg/dL, 1 mg/dL POC URINE BILIRUBIN Negative Negative mg/dL POC URINE BLOOD INSTRUMENT Negative Negative [place]/uL POC URINE COLOR Yellow POC URINE CLARITY Clear Urine 10/20/2021 2:50 PM CDT Chitra Kaur APRN, GAMB CUTTER POINT OF CARE MARY LOU TING (MANUAL) Final Result * POCT URINE HCG () (10/20/2021 2:49 PM CDT) POC URINE Negative POC URINE CONTROL Leave Coordinator Pass Urine 10/20/2021 2:49 PM CDT us Chitra Kaur APRN, GAMB CUTTER POINT OF CARE MARY LOU TING (MANUAL) Final Result documented in this encounter Visit Diagnoses Diagnosis Vaginal discharge- Primary Leukorrhea, not specified as infective Polyuria documented in this encounter Additional Health Concerns Assessment Noted Time PHQ-9 Depression Total Score: 0 03/25/19 20 10:00 AM REGULATORY COMPLIANCE DIRECTOR documented as of this encounter Care Teams Wood Products Manufacturer Relationship Specialty Start Date End Date Gayla Barker, GEOSPATIAL ANALYST, GAMB CUTTER [address] [place] [address] PCP - General Advanced Practice Nurse 03/25/19 Ct, [facility] Cov[facility] [place] 09/03/19 documented as of this encounter
--- OUTSIDE RECORDS SUMMARY | 2024-02-24 19:43 | XMS_ITS | Encounter Summary ---
Author Organization [employer] Care Team Providers Care Virtualization Architect Name Role Phone Gayla Barker RESPIRATORY EQUIPMENT ASSISTANT, INDUSTRIAL HYGENIST Primary Care Provider Ct, Acute Covid At Home Care Unavailable Marianela vailable Encounter Details Date Type Department Care Team (Latest Contact Info) Description 02/02/2021 Travel Social History Tobacco Use Types Packs/Day [...] on file Legal Sex Female 10:27 AM COAT CUTTER Gender Identity Not on file Sexual Orientation Not on file COVID-19 Exposure Response Date Recorded In the last month, have you been in contact with someone who was confirmed or suspected to have Coronavirus / COVID-19? No / Unsure 02/02/2021 12:45 PM COAT CUTTER documented as of this encounter Plan of Treatment Not on file documented as of this encounter Visit Diagnoses Not on filedocumented in this encounter Additional Health Concerns Assessment Noted Time PHQ-9 Depression Total Score: 0 03/25/19 20 10:00 AM COAT CUTTER documented as of this encounter Care Teams Virtualization Architect Relationship Specialty Start Date End Date Gayla Barker, RESPIRATORY EQUIPMENT ASSISTANT, INDUSTRIAL HYGENIST [address] [place] [address] PCP - General Advanced Practice Nurse 03/25/19 Ct, [facility] [place] 09/03/19 documented as of this encounter
--- OUTSIDE RECORDS SUMMARY | 2024-02-24 19:43 | XMS_ITS | Encounter Summary ---
Author Organization [email or web address] Care Team Providers Care Cocoa Milling Machine Operator Name Role Phone Gayla Barker LABORER BITUMINOUS PAVING, BUSINESS SERVICES COORDINATOR Primary Care Provider Ct, Acute Covid At Home Care Unavailable Marianela vailable Encounter Details Date Type Department Care Team (Latest Contact Info) Description 07/06/2021 Travel Social History Tobacco Use Types Packs/Day [...] on file Legal Sex Female 10:27 AM PRIMER AND POWDER CANNING LEADER Gender Identity Not on file Sexual Orientation [...] Total Score: 0 03/25/19 20 10:00 AM PRIMER AND POWDER CANNING LEADER documented as of this encounter Care Teams Cocoa Milling Machine Operator Relationship Specialty Start Date End Date Gayla Barker, LABORER BITUMINOUS PAVING, BUSINESS SERVICES COORDINATOR [address] [place] [address] PCP - General Advanced Practice Nurse 03/25/19 Ct, [place] [facility] [place] 09/03/19 documented as of this encounter
--- OUTSIDE RECORDS SUMMARY | 2024-02-24 19:43 | XMS_ITS | Encounter Summary ---
Author Organization [facility] Address [address] [place] [address] Phone Care Team Providers Care Deliverer Merchandise Name Role Phone Gayla Barker APRN, CLAIMS ATTORNEY Primary Care Provider Ct, Acute Covid At Home Care Unavailable Marianela vailable Reason for Visit * Reason Comments Sore Throat Encounter Details Date Type Department Care Team ([facility] st Contact Info) Description 10/13/2021 7:18 AM CDT - 10/13/2021 8:12 AM CDT Emergency [facility] [address] [place] [id number] Mohit Saldaña MD [address] [place] [address] Sore throat Discharge Disposition: Discharged to home or Selfcare [...] on file Legal Sex Female 10:27 AM MEDICAL ONCOLOGY PHYSICIAN Gender Identity Not on file Sexual Orientation Not on file COVID-19 Exposure Response Date Recorded In the last 10 days, have yo u been in contact with someone who was confirmed or suspected to have Coronavirus/COVID-19? No / Unsure 10/13/2021 7:14 AM CDT documented as of this encounter Last Filed Vital Signs Vital Sign Reading Time Taken Comments Blood Pressure 115/74 10/13/2021 7:14 AM CDT Pulse 72 10/13/2021 7:14 AM CDT Temperature 36.1 ??C (97 ??F) 10/13/2021 7:14 AM CDT Respiratory Rate 20 10/13/2021 7:14 AM CDT Oxygen Saturation 99% 10/13/2021 7:14 AM CDT Inhaled Oxygen Concentration - - Weight 77.6 kg (171 lb) 10/13/2021 7:14 AM CDT Height 157.5 cm (5' 2 ) 10/13/2021 7:14 AM CDT Body Mass Index 31.28 10/13/2021 7:14 AM CDT documented in this encounter Discharge Instructions * Attachments The following attachments cannot be sent through Care Everywhere. * Sore Throat (Spanish) documented in this encounter Medications at Time of Discharge hydroxychloroquin e (PLAQUENIL) 200 MG Tablet Take 1 Tab by mouth daily. 90 Tab 3 05/09/2019 predniSONE (DELTASONE) 5 MG Tablet 01/31/2021 predniSONE (DELTASONE) 2.5 MG Tablet Take 2.5 mg by mouth daily. 12/14/2021 sertraline (ZOLOFT) 25 MG Tablet TAKE 1 TABLET BY MOUTH EVERY DAY 90 Tablet 1 07/21/2021 11/18/2021 documented as of this encounter ED Notes * Mohit Saldaña MD - 10/13/2021 7:47 AM CDT Chief Complaint Patient presents with ??? Sore Throat 31-year-old female presenting with sore throat, had a positive strep exposure. She lifted her throat does not see any exudate. She was treated for strep 2 weeks ago. She apparently has to prove that she does not have strep in order to return to work. She also complains of left ear pain there has been no drainage, her throat is worse with swallowing. No current facility-administered medications for this encounter. Current Outpatient Medications Medication Sig Dispense Refill ??? hydroxychloroquine (PLAQUENIL) 200 MG Tablet Take 1 Tab by mouth daily. 90 Tab 3 ??? predniSONE (DELTASONE) 2.5 MG Tablet Take 2.5 mg by mouth daily. ??? predniSONE (DELTASONE) 5 MG Tablet ??? sertraline (ZOLOFT) 25 MG Tablet TAKE 1 TABLET BY MOUTH EVERY DAY 90 Tablet 1 Allergies Allergen Reactions ??? Azathioprine Hives ??? Escitalopram Rash and Other (see Comments) Possibly caused seizures - pt unsure ??? Amoxicillin Rash ??? Clindamycin Rash ??? Medrol [Methylprednisolone] Anaphylaxis ??? Aripiprazole [...] History Narrative ??? Not on file BP 115/74 Pulse 72 Temp 97 ??F (36.1 ??C) (Tympanic) Resp 20 Ht 5' 2 (1.575 m) Wt 171 lb(77.6 kg) LMP 06/25/2021 SpO2 99% BMI 31.28 kg/m?? Review of Systems Constitutional: Negative for activity change, chills and fever. HENT: Positive for ear pain and sore throat. Respiratory: Negative for shortness of breath, wheezing and stridor. Gastrointestinal: Negative for abdominal pain, diarrhea and nausea. All other systems reviewed and are negative. Physical Exam Vitals and nursing note reviewed. HENT: Head: Normocephalic and atraumatic. Right Ear: Tympanic membrane normal. Left Ear: Ear canal normal. No drainage or swelling. A middle ear effusion is present. Tympanic membrane is not erythematous. Mouth/Throat: Mouth: Mucous membranes are moist. Tonsils: No tonsillar exudate or tonsillar abscesses. 0 on the right. 0 on the left. Eyes: Extraocular Movements: Extraocular movements intact. Conjunctiva/sclera: [...] normal. Procedures Imaging Results None Labs Reviewed CULTURE, GRP A STREPTOCOCCUS, CULT ONLY POCT GROUP A STREP SCREEN RAPID MDM Number of Diagnoses or Management Options Amount and/or Complexity of Data Reviewed Clinical lab tests: ordered and reviewed Reviewed: previous chart, nursing note and vitals Interpretation: labs Strep negative, non erythematous middle ear infusion, maybe allergies versus virus, for to return to work, follow-up with PCP 1 week as needed. Clinical Impression 1. Sore throat 2. Left ear pain * Kristie Cervantes RN - 10/13/2021 7:16 AM CDT Patient arrives to ed from home with a sore throat for two days. Patient was treated for strep two weeks ago but was recently exposed again. Patient needing negative strep to return to work. C/o leftear pain. documented in this encounter Plan of Treatment Not on file documented as of this encounter Procedures Procedure Name Priority Date/Time Associated Diagnosis Comments POCT GROUP A STREP SCREEN RAPID STAT 10/13/2021 7:30 AM CDT CULTURE, GRP A STREPTOCOCCUS, CULT ONLY STAT 10/13/2021 7:30 AM CDT documented in this encounter Results * Culture, Grp A Streptococcus, Cult Only (10/13/2021 7:30 AM CDT) CULTURE RESULTS NO STREP PYOGENES (GROUP A BETA HEMOLYTIC STREP) ISOLATED AFTER 2 DAYS 10/15/2021 3:19 PM CDT [facility] Culture SPECIMEN FROM THROAT / Unknown Non-Phlebotomy Collection / Unknown 10/13/2021 7:30 AM CDT 10/13/2021 8:00 AM CDT us Mohit Saldaña MD MICROBIOLOGY - GENERAL ORDERABLES Final Result Performing Organization Address City/State/[facility] Co de Phone Number [facility] [address] [place] [address], * POCT Group A Strep Screen Rapid (10/13/2021 7:30 AM CDT) POC STREP SCRN Presumptive negative POC STREP SCREEN CONTROL Car [place] 10/13/2021 7:30 AM CDT us Mohit Saldaña MD POINT OF CARE TESTING (MANUAL) Final Result documented in this encounter Visit Diagnoses Diagnosis Sore throat- Primary Acute pharyngitis Left ear pain Otalgia, unspecified documented in this encounter Additional Health Concerns Assessment Noted Time PHQ-9 Depression Total Score: 0 03/25/19 10:00 AM MEDICAL ONCOLOGY PHYSICIAN documented as of this encounter Care Teams Deliverer Merchandise Relationship Specialty Start Date End Date Gayla Barker, CONTINUOUS TOWEL ROLLER, CLAIMS ATTORNEY [address] [place] [address] PCP - General Advanced Practice Nurse 03/25/19 Ct, [facility] [place] 09/03/19 documented as of this encounter
--- OUTSIDE RECORDS SUMMARY | 2024-02-24 19:43 | XMS_ITS | Encounter Summary ---
Author Organization [facility] Care Team Providers Care Conductor Sleeping Car Name Role Phone Gayla Barker EXTENSION EDUCATOR, SHELLFISH FARMING SUPERVISOR Primary Care Provider Ct, Acute Covid At Home Care Unavailable Marianela vailable Encounter Details Date Type Department Care Team (Latest Contact Info) Description 10/20/2021 Travel Social History Tobacco Use Types Packs/Day [...] on file Legal Sex Female 10:27 AM BALANCING MACHINE OPERATOR Gender Identity Not on file [...] Total Score: 0 03/25/19 20 10:00 AM BALANCING MACHINE OPERATOR documented as of this encounter Care Teams Conductor Sleeping Car Relationship Specialty Start Date End Date Gayla Barker, EXTENSION EDUCATOR, SHELLFISH FARMING SUPERVISOR [address] [place] [address] PCP - General Advanced Practice Nurse 03/25/19 Ct, Acute Covid [facility] Home Care [place] 09/03/19 documented as of this encounter
--- OUTSIDE RECORDS SUMMARY | 2024-02-24 19:43 | XMS_ITS | Encounter Summary ---
Author Organization [facility] Address [address] [facility] [place] [address] Phone Care Team Providers Care Head Of Digital Advertising & Integration Name Role Phone Gayla Barker APRN, HARSHA Primary Care Provider Ct, [facility] Unavailable Marianela vailable Reason for Visit * Reason Onset Date Comments COVID-19 03/05/2021 Advice Only 03/05/2021 Encounter Details Date Type Department Care Team (Late st Contact Info) Description 03/05/2021 Telephone [facility] [address] [place] [address] Gayla Barker APRN, PROCUREMENT CONSULTANT [address] [place] [address] COVID-19; Advice Only Social History Tobacco Use Types Packs/Day Years [...] file Legal Sex Female 10:27 AM WOOD GETTER Gender Identity Not on file Sexual Orientation Not on file COVID-19 Exposure Response Date Recorded In the last month, have you been in contact with someone who was confirmed or suspected to have Coronavirus / COVID-19? No / Unsure 03/04/2021 7:08 AM WOOD GETTER documented as of this encounter Miscellaneous Notes * Telephone Encounter - Ilda Uribe, RN - 03/05/2021 3:23 PM WOOD GETTER Patient states she has been trying to get a hold of [facility] for COVID testing, states she has waiting on hold to speak with someone there Advised patient to utilize [facility] to find COVID testing Patient requesting this divider operator her to [facility] Understands she will be on hold with [facility] upon transfer Patient verbalized understanding, and agreeable to recommendations GETTER documented in this encounter Plan of Treatment Not on file documented as of this encounter Visit Diagnoses Not on filedocumented in this encounter Additional Health Concerns Assessment Noted Time PHQ-9 Depression Total Score: 0 03/25/19 10:00 AM WOOD GETTER documented as of this encounter Care Teams Head Of Digital Advertising & Integration Relationship Specialty Start Date End Date Gayla Barker, EMU FARM WORKER, PROCUREMENT CONSULTANT [address] [place] [address] PCP - General Advanced Practice Nurse 03/25/19 Ct, [facility] [place] Digital JOANNA 09/03/19 documented as of this encounter
--- OUTSIDE RECORDS SUMMARY | 2024-02-24 19:43 | XMS_ITS | Encounter Summary ---
Author Organization [facility] Care Team Providers Care Airport Security Screener Name Role Phone Gayla Barker ANTENNA DESIGN ENGINEER, EDUCATION CONSULTANT Primary Care Provider Ct, [facility] Home [facility] Unavailable Marianela vailable Encounter Details Date Type Department Care Team (Latest Contact Info) Description 10/13/2021 Travel Social History Tobacco Use Types Packs/Day [...] on file Legal Sex Female 10:27 AM SOFTLINES SUPERVISOR Gender Identity Not on file Sexual [...] Total Score: 0 03/25/19 20 10:00 AM SOFTLINES SUPERVISOR documented as of this encounter Care Teams Airport Security Screener Relationship Specialty Start Date End Date Gayla Barker, ANTENNA DESIGN ENGINEER, EDUCATION CONSULTANT [address] [place] [address] PCP - General Advanced Practice Nurse 03/25/19 Ct, [facility] [place] Digital MEKHI 09/03/19 documented as of this encounter
--- OUTSIDE RECORDS SUMMARY | 2024-02-24 19:43 | XMS_ITS | Encounter Summary ---
Author Organization [facility] Address [address] [place] [address] Phone Care Team Providers Care Motorboat Mechanic Inboard Name Role Phone Gayla Barker APRN, CLINICAL RN Primary Care Provider Ct, [facility] Home [facility] Unavailable Marianela vailable Reason for Visit * Reason Comments Cough Chest Congestion Generalized Body Aches Encounter Details Date Type Department Care Team (Latest Contact Info) Description 11/18/2021 8:25 AM CDT [facility] [place] [address] [place] [address] Brandy Gaitan APRN, CLINICAL RN [address] [place] [address] Cough (Primary Dx); Sore throat Discharge Disposition: Discharged to home [...] on file Legal Sex Female 10:27 AM MENTAL RETARDATION NURSE Gender Identity Not on file Sexual Orientation Not on file COVID-19 Exposure Response Date Recorded In the last 10 days, have yo u been in contact with someone who was confirmed or suspected to have Coronavirus/COVID-19? No / Unsure 11/14/2021 1:52 AM CDT documented as of this encounter Last Filed Vital Signs Vital Sign Reading Time Taken Comments Blood Pressure 116/68 11/18/2021 8:43 AM CDT Pulse 73 11/18/2021 8:43 AM CDT Temperature 36.3 ??C (97.3 ??F) 11/18/2021 8:43 AM CD T Respiratory Rate 18 11/18/2021 8:43 AM CDT Oxygen Saturation 99% 11/18/2021 8:43 AM CDT Inhaled Oxygen Concentration - - Weight - - Height 157.5 cm (5' 2 ) 11/18/2021 8:43 AM CDT Body Mass Index - - documented in this encounter Progress Notes * Blank Mitchell RMA - 11/18/2021 8:25 AM CDT Pt states symptoms started Sunday with cough and chest congestion. Pt states had 2 COVID tests and they were both negative. Pt states she gets out of breath easily. She thinks when she was tested tooearly. * Brandy Gaitan APRN, CLINICAL RN - 11/18/2021 8:25 AM CDT HPI: Carito Madison is a 31 y.o. female in the prompt [facility] today for cough. Symptoms started 5 days ago Severity of symptoms is mild Associated symptoms include congestion and SOB with exertion Patient is currently taking tessalon pearls nothing for the symptoms. Smoker: Former Negative COVID x2 this week No pertinent Past, family, or social history [...] (HCC) ??? Adrenal insufficiency (HCC) ??? Anti-MANAGER SECURITY antibodies present ??? Microcytic anemia ??? Bilateral chronic serous otitis media ??? [place]'s disease (HCC) ??? Secondary adrenal insufficiency (HCC) ??? Attention deficit hyperactivity disorder (ADHD), combined type ??? Generalized anxiety disorder ??? Adrenal insufficiency (HCC) ROS: Review of Systems Constitutional: Positive for appetite change (decreased). Negative for chills and fever. HENT: Positive for congestion (chest), ear pain and sore throat. Respiratory: Positive for cough and shortness of breath (slight with exertion). Musculoskeletal: Positive for myalgias (back). PE: BP 116/68 Pulse 73 Temp 97.3 ??F (36.3 ??C) (Temporal) Resp 18 Ht 5' 2 (1.575 m) LMP 11/06/2021 SpO2 99% BMI 30.18 kg/m?? Physical Exam Vitals and nursing note reviewed. Constitutional: General: She is not in acute distress. Appearance: Normal appearance. She is normal weight. She is not ill-appearing. HENT: Head: Normocephalic and atraumatic. Right Ear: A middle ear effusion is present. Tympanic membrane is erythematous (slight). Left Ear: A middle ear effusion is present. Nose: Congestion present. Mouth/Throat: Mouth: Mucous membranes are moist. Pharynx: Oropharynx is clear. Posterior oropharyngeal erythema present. No oropharyngeal exudate. Cardiovascular: Rate and Rhythm: Normal rate and regular rhythm. Pulses: Normal pulses. Heart sounds: Normal heart sounds. Pulmonary: Effort: Pulmonary effort is normal. No respiratory distress. Breath sounds: Wheezing (scattered slight) present. Musculoskeletal: Cervical back: Normal range of motion and neck supple. Tenderness (mild) present. Lymphadenopathy: Cervical: Cervical adenopathy (bilateral anterior) present. Skin: General: Skin is warm and dry. Neurological: Mental Status: She is alert and oriented to person, place, and time. ASSESSMENT/PLAN: 1. Cough - POCT SARS ANTIGEN RAMESH Negative - XR CHEST 2 VIEWS Pending - increase PO fluids - antihistamine of choice 2. Sore throat - POCT GROUP A STREP SCREEN RAPID - warm salt water gargles Patient left prior to CXR Results being back. Left without asking for AVS There are no Patient Instructions on file for this visit. Chief complaint and all history documented by ancillary staff were reviewed and verified, with additions or corrections, as appropriate. documented in this encounter Plan of Treatment Not on file documented as of this encounter Procedures Procedure Name Priority Date/Time Associated Diagnosis Comments XR CHEST 2 VIEWS Stat with Interpretation 11/18/2021 9:44 AM CDT Cough POCT GROUP A STREP SCREEN RAPID Routine 11/18/2021 9:44 AM CDT Sore throat POCT SARS ANTIGEN RAMESH Routine 11/18/2021 8:45 AM CDT Cough documented in this encounter [...] 11/18/2021 10:09 AM - Electronically signed by ??Lxe Curtis M.D. RB: REEMA D: ??11/18/2021 10:09 AM T: ??11/18/2021 10:09 AM Report ID: [id number] Reading Location: ??[id number] Procedure Note Lex Curtis MD - 11/18/2021 [...] Electronically signed by Lex Curtis M.D. RB: REEMA Report ID: [id number] Reading Location: [id number] IMPRESSION: Unchanged slight prominence of central bronchovascular markings. No acute focal infiltrates or effusions. Heart upper limits of normal in size. Brandy Gaitan APRN, CLINICAL RN [facility] DIAGNOSTIC ORDE RABLES Final Result * POCT GROUP A STREP SCREEN RAPID (11/18/2021 9:44 AM CDT) POC STREP SCRN Presumptive negative POC STREP SCREEN CONTROL Oil Well Gun Perforator Operator Pass 11/18/2021 9:44 AM CDT Brandy Gaitan APRN, CLINICAL RN POINT OF CARE TESTI NG (MANUAL) Final Result * POCT SARS ANTIGEN RAMESH (11/18/2021 8:45 AM CDT) POC SARS ANTIGEN RAMESH Negative Negative POC SARS ANTIGEN RAMESH CONTROL Oil Well Gun Perforator Operator Pass Swab NASAL STRUCTURE / Unknown 11/18/2021 8:45 AM CDT us Jack Denny PAC POINT OF CARE TESTING (PRESTON [place]) Final Result documented in this encounter Visit Diagnoses Diagnosis Cough- Primary Sore throat Acute pharyngitis documented in this encounter Additional Health Concerns Infection Onset Date Last Indicated Resolved Time COVID - 19 11/14/2021 11/18/2021 11/28/2021 12:1 6 AM CDT Assessment Noted Time PHQ-9 Depression Total Score: 0 03/25/19 10:00 AM MENTAL RETARDATION NURSE documented as of this encounter Care Teams Motorboat Mechanic Inboard Relationship Specialty Start Date End Date Gayla Barker, TEMPLE MEAT CUTTER, CLINICAL RN [address] [place] [address] PCP - General Advanced Practice Nurse 03/25/19 Ct, [facility] [place] Digital MEKHI 09/03/19 documented as of this encounter
--- OUTSIDE RECORDS SUMMARY | 2024-02-24 19:43 | XMS_ITS | Encounter Summary ---
Author Organization [facility] Address [address] [facility] [place] [address] Phone Care Team Providers Care Light Coil Winder Name Role Phone Gayla Barker APRN, CNP Primary Care Provider Ct, Acute [facility] Home [facility] Unavailable Marianela vailable Reason for Referral * Consult, Test & Initiate Treatment (Less Than 1 Week) - Canceled Specialty Diagnoses / Procedures Referred By Contac t Referred To Contact General Surgery Diagnoses Hemorrhoid thrombosis Gayla Barker APRN, CNP [address] [place] [address] Phone: tel: fax: Alan Kellogg MD [address] [address] Phone: tel: fax: Referral ID Status Reason Start Date Expiration Date V isits Requested Visits Authorized [id number] Canceled 03/04/2021 1 1 Scheduling Instructions Carito is being referred for hemorrhoids (Dr. Kellogg). Please contact patient for scheduling questions or concerns. A OPERATOR Reason for Visit * Reason Comments Rectal Pain Vaginal Itching Encounter Details Date Type Department Care Team ([facility] Contact Info) Description 03/04/2021 10:15 AM A OPERATOR Office Visit [facility] - Primary Care - [place] [address] [place] [address] Gayla Barker APRN, CONTENT ANALYST [address] [place] [address] Hemorrhoid thrombosis (Primary Dx); Vaginal discharge Discharge Disposition: Discharged to home or Selfcare [...] on file Legal Sex Female 10:27 AM A OPERATOR Gender Identity Not on file Sexual Orientation Not on file COVID-19 Exposure Response Date Recorded In the last month, have you been in contact with someone who was confirmed or suspected to have Coronavirus / COVID-19? No / Unsure 03/04/2021 7:08 AM A OPERATOR documented as of this encounter Last Filed Vital Signs Vital Sign Reading Time Taken Comments Blood Pressure 108/70 03/04/2021 10:25 AM A OPERATOR Pulse 68 03/04/2021 10:25 AM A OPERATOR Temperature 36.4 ??C (97.5 ??F) 03/04/2021 10:[address] Respiratory Rate 20 03/04/2021 10:25 AM A OPERATOR Oxygen Saturation 99% 03/04/2021 10:25 AM A OPERATOR Inhaled Oxygen Concentration - - Weight 76.7 kg (169 lb) 03/04/2021 10:25 AM A OPERATOR Height 157.5 cm (5' 2 ) 03/04/2021 10:25 AM A OPERATOR Body Mass Index 30.91 03/04/2021 10:25 AM A OPERATOR documented in this encounter Patient Instructions * Patient Instructions* Gayla Barker APRN, CONTENT ANALYST - 03/04/2021 10:15 AM A OPERATOR GI referral - call Dr. Kellogg office for appointment Elijah Menjivar pads Follow up as needed A OPERATOR A OPERATOR documented in this encounter Progress Notes * Dimple Junior RMA - 03/04/2021 10:15 AM CST Carito Madison, 30 y.o., female is here for Rectal Pain Medication Refills: Patient reports/denies need for medication refills. Orders Pended: no Requested Prescriptions No prescriptions requested or ordered in this encounter Home Medications Medication Sig Start Date End Date Taking? Authorizing Provider fluconazole (DIFLUCAN) 150 MG Tablet 02/04/21 Yes Provider, MD Isis hydroxychloroquine (PLAQUENIL) 200 MG Tablet Take 1 Tab by mouth daily. 05/09/19 Gayla Barker APRN, CNP predniSONE (DELTASONE) 2.5 MG Tablet Take 2.5 mg by mouth daily. Provider, MD Isis predniSONE (DELTASONE) 5 MG Tablet 01/31/21 Provider, MD Isis sertraline (ZOLOFT) 25 MG Tablet Take 1 Tablet by mouth daily. 02/02/21 Gayla Barker APRN, CNP Medications Discontinued During This Encounter Medication Reason ??? Fluconazole (DIFLUCAN PO) Med List Clean Up I have reviewed the home medication list with the patient and have reconciled discrepancies. The list is accurate to the best of my knowledge. Smoking Status: Social History Tobacco Use ??? Smoking status: Former Smoker ??? Smokeless tobacco: Never Used ??? Tobacco comment: only when drink Vaping Use ??? Vaping Use: Never used Substance Use Topics ??? Alcohol use: Yes Comment: occasionally ??? Drug use: Yes Types: Marijuana, Cocaine Smoking Cessation Counseling Given: no Health Care Maintenance: Health Maintenance Due Topic Date Due ??? Influenza Immunization (1) Never done ??? SARS-COV-2 Immunization (3 - Pfizer risk 4-dose series) 11/09/2020 Orders Pended: no The following BPA's have been addressed with the patient today: Flu A OPERATOR * Gayla Barker APRN, HARSHA - 03/04/2021 10:15 AM CST Images from the original note were not included. Subjective: Patient presents with complaints of rectal pain and vaginal itching. She states that she has been having pain in her rectum for several weeks and noticed bumps at the rectum. She has been using sits baths and oatmeal baths, she has also been using preparation H without any relief. She states that she had a Pap about a week ago and she has been having a discharge without any odor since. Review of Systems Constitutional: Negative for fever. HENT: Negative. Respiratory: Negative for cough and shortness of breath. Cardiovascular: Negative for chest pain and palpitations. Gastrointestinal: Positive for rectal pain. Negative for constipation, diarrhea, nausea and vomiting. Genitourinary: Negative. Musculoskeletal: Negative. Neurological: Negative for dizziness and headaches. Psychiatric/Behavioral: Negative. Objective: Physical Exam Vitals and nursing note reviewed. Constitutional: Appearance: Normal appearance. HENT: Head: Normocephalic and atraumatic. Cardiovascular: Rate and Rhythm: Normal rate and regular rhythm. Pulses: Normal pulses. Heart sounds: Normal heart sounds. Pulmonary: Effort: Pulmonary effort is normal. Breath sounds: Normal breath sounds. Genitourinary: Musculoskeletal: General: Normal range of motion. Skin: General: Skin is warm and dry. Neurological: Mental Status: She is alert and oriented to person, place, and time. Psychiatric: Mood and Affect: Mood normal. BP 108/70 Pulse 68 Temp 97.5 ??F (36.4 ??C) (Temporal) Resp 20 Ht 5' 2 (1.575 m) Wt 169 lb (76.7 kg) LMP 02/27/2020 (Approximate) SpO2 99% BMI 30.91 kg/m?? Assessment and Plan See Diagnoses, Orders, Follow-up, and Instructions Encounter Diagnoses Name Primary? Hemorrhoid thrombosis Yes ??? Vaginal discharge GI referral - call Dr. Kellogg office for appointment Sitz baths Tucks pads Follow up as needed Patient states that she has metronidazole at home she thinks, will let me know and if she does not I will order metronidazole 500 mg 2 times a day x7 days. Did not order hydrocortisone cream for the hemorrhoid due to her allergy. Documentation for this visit on 03/04/2021 was completed using a template. I have seen and examinedthe patient. Everything documented was personally performed at this visit with the necessary additions, deletions and changes made as appropriate. A OPERATOR documented in this encounter Plan of Treatment Scheduled Referrals Name Type Priority Associated Diagnoses Order Schedule GASTROENTEROLOGY REFERRAL Outpatient Referral Less Than 1 week Hemorrhoid thrombosis Expected: 03/04/2021, Expires: 03/04/2022 documented as of this encounter Visit Diagnoses Diagnosis Hemorrhoid thrombosis- Primary Unspecified thrombosed hemorrhoids Vaginal discharge Leukorrhea, not specified as infective documented in this encounter Additional Health Concerns Assessment Noted Time PHQ-9 Depression Total Score: 0 03/25/19 20 10:00 AM A OPERATOR documented as of this encounter Care Teams Light Coil Winder Relationship Specialty Start Date End Date Gayla Barker APRN, CONTENT ANALYST [address] [place] [address] PCP - General Advanced Practice Nurse 03/25/19 Ct, [facility] [place] Digital MEKHI 09/03/19 documented as of this encounter
--- OUTSIDE RECORDS SUMMARY | 2024-02-24 19:43 | XMS_ITS | Encounter Summary ---
Author Organization [facility] Address [address] [place] [address] Phone Care Team Providers Care Aircraft Structural Repair Mechanic Name Role Phone Gayla Barker APRN, HARSHA Primary Care Provider Ct, Acute Covid At Home Care Unavailable Marianela vailable Reason for Visit * Reason Comments Medication Refill Encounter Details Date Type Department Care Team (Late st Contact Info) Description 11/06/2021 Refill [facility] - Primary Care - [place] [address] [place] [address] Gayla Barker APRN, PUBLIC HEALTH OFFICER [address] [place] [address] Medication Refill Social History Tobacco [...] on file Legal Sex Female 10:27 AM FILLER MACHINE OPERATOR Gender Identity Not on file Sexual Orientation Not on file COVID-19 Exposure Response Date Recorded In the last 10 days, have yo u been in contact with someone who was confirmed or suspected to have Coronavirus/COVID-19? No / Unsure 10/20/2021 2:11 PM CDT documented as of this encounter Miscellaneous Notes * Telephone Encounter - Rose Mary Hinton RN - 11/07/2021 1:18 PM CDT Medication failed the protocol, provider to review and approve the medication order if appropriate. Requested Prescriptions Pending Prescriptions Disp Refills traZODone (DESYREL) 50 MG Tablet [Pharmacy Med Name: TRAZODONE 50 MG TABLET] 90 Tablet 0 Sig: TAKE 1/2-1 TABLET BY MOUTH AT NIGHT FOR SLEEP/ANXIETY Serotonin Modulators (6 Month Refill Only) Protocol Failed - 11/06/2021 10:01 AM Failed - Active on medication list Failed - Patient has established therapy with Serotonin Modulators for at least 6 months Passed - No test in the past 12 months or most recent test was negative Passed - No active on record Passed - Visit with relevant provider in past 6 months or upcoming 90 days Recent Visits Date Type Provider Dept 07/06/21 Office Visit Gayla Barker APRN, HARSHA [facility] 06/15/21 Telemedicine Gayla Barker APRN, HARSHA [facility] Showing recent visits within past 182 days and meeting all other requirements Future Appointments No visits were found meeting these conditions. Showing future appointments within next 90 days and meeting all other requirements Passed - Has an encounter in the past 6 months with a depression or anxiety visit diagnosis Passed - No PRN Use for Trazodone documented in this encounter Plan of Treatment Not on file documented as of this encounter Visit Diagnoses Not on filedocumented in this encounter Additional Health Concerns Assessment Noted Time PHQ-9 Depression Total Score: 0 03/25/19 10:00 AM FILLER MACHINE OPERATOR documented as of this encounter Care Teams Aircraft Structural Repair Mechanic Relationship Specialty Start Date End Date Gayla Barker APRN, PUBLIC HEALTH OFFICER [address] [place] [address] PCP - General Advanced Practice Nurse 03/25/19 Ct, [facility] [place] Digital MEKHI 09/03/19 documented as of this encounter
--- OUTSIDE RECORDS SUMMARY | 2024-02-24 19:43 | XMS_ITS | Encounter Summary ---
Author Organization [facility] Address [address] [place] [address] Phone Care Team Providers Care Fender Finisher Name Role Phone Gayla Barker APRN, CNP Primary Care Provider Ct, Acute Covid At Home Care Unavailable Marianela vailable Reason for Visit * Reason Onset Date Comments Appointment 03/15/2021 Encounter Details Date Type Department Care Team (Late st Contact Info) Description 03/15/2021 Telephone [facility] - Primary Care - [place] [address] [place] [address] Gayla Barker APRN, CNP [address] [place] [address] Appointment Social History Tobacco Use Types Packs/Day [...] on file Legal Sex Female 10:27 AM SHEET METAL WORKER MAINTENANCE Gender Identity Not on file Sexual Orientation Not on file COVID-19 Exposure Response Date Recorded In the last month, have you been in contact with someone who was confirmed or suspected to have Coronavirus / COVID-19? Yes 03/05/2021 5:18 PM SHEET METAL WORKER MAINTENANCE documented as of this encounter Miscellaneous Notes * Telephone Encounter - Dimple Junior RMA - 03/15/2021 8:14 AM CST LMOM TO R/S APPT WITH DIFFERENT PROVIDER OR COME TO PROMPT CARE. T METAL WORKER MAINTENANCE documented in this encounter Plan of Treatment Not on file documented as of this encounter Visit Diagnoses Not on filedocumented in this encounter Additional Health Concerns Infection Onset Date Last Indicated Resolved Time COVID - 19 Confirmed 03/05/2021 03/05/2021 022 12:16 AM SHEET METAL WORKER MAINTENANCE Assessment Noted Time PHQ-9 Depression Total Score: 0 03/25/19 20 10:00 AM SHEET METAL WORKER MAINTENANCE documented as of this encounter Care Teams Fender Finisher Relationship Specialty Start Date End Date Gayla Barker, VICE PRESIDENT AND PORTFOLIO MANAGER, OFFSET PRESS OPERATOR [address] [place] [address] PCP - General Advanced Practice Nurse 03/25/19 Ct, Acute [facility] Home Care [place] Digital MEKHI 09/03/19 documented as of this encounter
--- OUTSIDE RECORDS SUMMARY | 2024-02-24 19:43 | XMS_ITS | Encounter Summary ---
Author Organization [facility] Address [address] [place] [address] Phone Care Team Providers Care Varying Exceptionalities Teacher Name Role Phone Gayla Barker APRN, GYROSCOPE REPAIRER Primary Care Provider Ct, [facility] Unavailable Marianela vailable Reason for Visit * Reason Comments Generalized Body Aches Encounter Details Date Type Department Care Team ([facility] st Contact Info) Description 11/14/2021 1:58 AM CDT - 11/14/2021 2:40 AM CDT Emergency [facility] Emergency [address] [place] [id number] Dewey Dinero MD [address] [place] [address] Herpes genitalis Discharge Disposition: Discharged to home or Selfcare [...] on file 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 No / Unsure 11/14/2021 1:52 AM CDT documented as of this encounter Last Filed Vital Signs Vital Sign Reading Time Taken Comments Blood Pressure 122/78 11/14/2021 1:53 AM CDT Pulse 91 11/14/2021 1:53 AM CDT Temperature 36.9 ??C (98.4 ??F) 11/14/2021 1:53 AM CD T Respiratory Rate 18 11/14/2021 1:53 AM CDT Oxygen Saturation 95% 11/14/2021 1:53 AM CDT Inhaled Oxygen Concentration - - Weight 74.8 kg (165 lb) 11/14/2021 1:53 AM CDT Height 157.5 cm (5' 2 ) 11/14/2021 1:53 AM CDT Body Mass Index 30.18 11/14/2021 1:53 AM CDT documented in this encounter Discharge Instructions * Attachments The following attachments cannot be sent through Care Everywhere. * Genital Herpes (Bangladeshi) documented in this encounter Medications at Time [...] daily. 2 sertraline (ZOLOFT) 25 MG Tablet TAKE 1 TABLET BY MOUTH EVERY DAY 90 Tablet 1 07/21/2021 2 traZODone (DESYREL) 50 MG Tablet TAKE 1/2-1 TABLET BY MOUTH AT NIGHT FOR SLEEP/ANXIETY 90 Tablet 11/07/2021 2 documented as of this encounter ED Notes * Hien rIvin RN - 11/14/2021 2:40 AM CDT Patient discharged. Discharge instructions and patient educational material reviewed with patient; questions and concerns addressed; patient verbalizes understanding, using teach back. Patient was given 1 prescriptions. Patient discharged per ambulatory mode with self as responsible alliance party. * Dewey Dinero MD - 11/14/2021 2:26 AM CDT Chief Complaint Patient presents with ??? Generalized Body Aches Patient 31-year-old female presents emergency room complaining of generalized body aches along withsore throat and herpetic breakout around her genitalia. Patient states she has not had an outbreak for proximally 10 years. She states she does have history of [place]'s disease and lupus and has been on daily doses of prednisone for some time. She was concerned she may have strep throat. No current facility-administered medications for this encounter. Current Outpatient Medications Medication Sig Dispense Refill ??? hydroxychloroquine (PLAQUENIL) 200 MG Tablet Take 1 Tab by mouth daily. 90 Tab 3 ??? predniSONE (DELTASONE) 2.5 MG Tablet Take 2.5 mg by mouth daily. ??? predniSONE (DELTASONE) 5 MG Tablet ??? sertraline (ZOLOFT) 25 MG Tablet TAKE 1 TABLET BY MOUTH EVERY DAY 90 Tablet 1 ??? traZODone (DESYREL) 50 MG Tablet TAKE 1/2-1 TABLET BY MOUTH AT NIGHT FOR SLEEP/ANXIETY 90 Tablet 0 Allergies Allergen Reactions ??? Azathioprine Hives ??? [...] History Narrative ??? Not on file BP 122/78 Pulse 91 Temp 98.4 ??F (36.9 ??C) (Tympanic) Resp 18 Ht 5' 2 (1.575 m) Wt 165 lb (74.8 kg) LMP 06/25/2021 SpO2 95% BMI 30.18 kg/m?? Review of Systems Constitutional: Negative for chills and fever. HENT: Positive for sore throat. Negative for congestion, ear pain and rhinorrhea. Eyes: Negative for discharge. Respiratory: Negative for cough, chest tightness, shortness of breath and wheezing. Cardiovascular: Negative for chest pain and palpitations. Gastrointestinal: Negative for abdominal pain, diarrhea, nausea and vomiting. Genitourinary: Negative for difficulty urinating and menstrual problem. Musculoskeletal: Positive for myalgias. Negative for arthralgias. Skin: Positive for rash. Negative for wound. Neurological: Negative for dizziness, syncope and headaches. All other systems reviewed and are negative. Physical Exam Vitals and nursing note reviewed. Constitutional: General: She is not in acute distress. Appearance: She is well-developed. She is not diaphoretic. HENT: Head: Normocephalic and atraumatic. Mouth/Throat: Mouth: Mucous membranes are moist. Pharynx: Uvula midline. Posterior oropharyngeal erythema present. No uvula swelling. Tonsils: No tonsillar exudate. Eyes: Conjunctiva/sclera: Conjunctivae normal. Pupils: Pupils are equal, round, and reactive to light. Cardiovascular: Rate and Rhythm: Normal rate and regular rhythm. Heart sounds: Normal heart sounds. No murmur heard. No friction rub. No gallop. Pulmonary: Effort: Pulmonary effort is normal. No respiratory distress. Breath sounds: Normal breath sounds. No wheezing or rales. Abdominal: General: Bowel sounds are normal. There is no distension. Palpations: Abdomen is soft. Tenderness: There is no abdominal tenderness. There is no guarding or rebound. Genitourinary: Comments: Deferred per patient request Musculoskeletal: General: No tenderness or deformity. Normal range of motion. Cervical back: Normal range of motion and neck supple. Lymphadenopathy: Cervical: No cervical adenopathy. Skin: General: Skin is warm and dry. Coloration: Skin is not pale. Findings: No erythema or rash. Neurological: Mental Status: She is alert and oriented to person, place, and time. Psychiatric: Behavior: Behavior normal. Thought Content: Thought content normal. Judgment: Judgment normal. Procedures Imaging Results None Labs Reviewed SARS-COV-2 BY MOLECULAR POCT GROUP A STREP SCREEN RAPID MDM Number of Diagnoses or Management Options Amount and/or Complexity of Data Reviewed Clinical lab tests: ordered and reviewed Risk of Complications, Morbidity, and/or Mortality Presenting problems: low Diagnostic procedures: low Management options: low General comments: Differential diagnosis: Strep throat, herpes simplex, viral syndrome Patient Progress Patient progress: stable Reviewed: previous chart, nursing note and vitals Interpretation: labs Clinical Impression 1. Herpes genitalis Patient presents emergency room with an outbreak of her herpes. Patient already has Valtrex which she is taking twice a day. We will add Zovirax cream so she comply this directly to the lesions. She is follow up with her primary care provider for recheck. * Hien Irvin RN - 11/14/2021 2:16 AM CDT Patient spoke to female nurse and states she is actually here because she has herpes flare up present on her mouth, vagina, and anus and states she is in a lot of pain and wants a prescription refill. * Hien Irvin RN - 11/14/2021 2:16 AM CDT ERP in with patient. * Homer Coelho RN - 11/14/2021 1:55 AM CDT Pt to ED with c/o generalized body aches, sore throat, cough, and vomiting. Pt covid and strep swabin triage. VSS. Pt is afebrile. documented in this encounter Plan of Treatment Not on file documented as of this encounter Procedures Procedure Name Priority Date/Time Associated Diagnosis Comments POCT GROUP A STREP SCREEN RAPID STAT 11/14/2021 2:07 AM CDT SARS-COV-2 BY MOLECULAR STAT 11/14/2021 2:05 AM CDT documented in this encounter Results * POCT Group A Strep Screen Rapid (11/14/2021 2:07 AM CDT) POC STREP SCRN Presumptive negative POC STREP SCREEN CONTROL Support Services Rep Pass 11/14/2021 2:07 AM CDT Dewey Dinero MD POINT OF CARE TESTING (HO ORO) Final Result * SARS-COV-2 BY MOLECULAR (11/14/2021 2:05 AM CDT) SARSCOV2 NOT DETECTED (Referenc e Range for this test is Not Detected) [facility] ID NOW 11/14/2021 2:27 AM CDT [facility] Comment:This test was perfor med by a MOLECULAR, NON-PCR method Other NASAL STRUCTURE / Unknown Non-Phlebotomy Collection / Unknown 11/14/2021 2:05 AM CDT 11/14/2021 2:11 AM CDT Narrative [facility] - 11/14/2021 2:27 AM CDT This test has been authorized by the [...] information for Clinicians can be found at: https://www.fda.gov/media/527341/download Additional information for Patients can be found at: https://www.fda.gov/media/718632/download Dewey Dinero MD MICROBIOLOGY - GENERAL OR DERABLES Final Result [facility] [address] [place] [address] documented in this encounter Visit Diagnoses Diagnosis Herpes genitalis- Primary Genital herpes, unspecified documented in this encounter Additional Health Concerns Infection Onset Date Last Indicated Resolved Time COVID - 19 11/14/2021 11/18/2021 11/28/2021 12:1 6 AM CDT Assessment Noted Time PHQ-9 Depression Total Score: 0 03/25/19 10:00 AM PAINTING CONTRACTOR documented as of this encounter Care Teams Varying Exceptionalities Teacher Relationship Specialty Start Date End Date Gayla Barker, TRANSFORMER MAKER, GYROSCOPE REPAIRER [address] [place] [address] PCP - General Advanced Practice Nurse 03/25/19 Ct, [facility] [place] [employer] 09/03/19 documented as of this encounter
--- OUTSIDE RECORDS SUMMARY | 2024-02-24 19:43 | XMS_ITS | Encounter Summary ---
Author Organization [facility] Address [address] [place] [address] Phone Care Team Providers Care Plastics Fabricator Name Role Phone Gayla Barker APRN, HUMAN RELATIONS TEACHER Primary Care Provider Ct, [facility] Home [facility] Unavailable Marianela vailable Reason for Visit * Auth/Cert Specialty Diagnoses / Procedures Referred By Jud freeman Referred To Contact Referral ID Status Reason Start Date Expiration Date Visits Re quested Visits Authorized [id number] 1 1 Encounter Details Date Type Department Care Team (Late st Contact Info) Description 08/26/2021 2:10 PM CDT Clinical Support [facility] [address] [place] [id number] Gómez Alcantar MD [address] [place] [address] Microcytic anemia (Primary Dx) Discharge Disposition: Discharged to home or Selfcare [...] on file 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 No / Unsure 08/26/2021 1:43 PM CDT documented as of this encounter Last Filed Vital Signs Vital Sign Reading Time Taken Comments Blood Pressure 112/76 08/26/2021 2:00 PM CDT Pulse 76 08/26/2021 2:00 PM CDT Temperature 36.5 ??C (97.7 ??F) 08/26/2021 2:00 PM CD T Respiratory Rate 16 08/26/2021 2:00 PM CDT Oxygen Saturation 99% 08/26/2021 2:00 PM CDT Inhaled Oxygen Concentration - - Weight - - Height - - Body Mass Index - - documented in this encounter Miscellaneous Notes * Interdisciplinary - Kristin Levy RN - 08/26/2021 2:10 PM CDT Pt ambulated back to treatment chair. Vitals obtained. Discussed plan of care for the day and educated on medication, pt verbalized understanding and states has had an iron infusion in the past whichshe felt made her heart race but could have been from anxiety. IV access obtained, flushed easily, and good blood return noted. Pt medicated per orders, pt stated she felt flushed at the beginning ofpush but states it's just me being anxious. Pt tolerated remainder of infusion well without incident. IV removed, bandaid placed. Pt stayed and assessed for appx 10 minutes post infusion with no reaction or complaints. Pt verbalized feeling okay and ambulated out of treatment room in stable condition. documented in this encounter Plan of Treatment Not on file documented as of this encounter Visit Diagnoses Diagnosis Microcytic anemia- Primary Iron deficiency anemia, unspecified documented in this encounter Administered Medications Inactive Administered Medications - up to 3 most recent administrations Medication Order MAR Action Action Date Dose Rate Site iron sucrose (VENOFER) injection 200 mg 200 mg, Intravenous, ONCE, 1 dose, On Sun08/26/21 at 1430, Administer over 5 MinutesIndications:Microcytic anemia Given 08/26/2021 2:15 PM CDT 200 mg documented in this encounter Additional Health Concerns Assessment Noted Time PHQ-9 Depression Total Score: 0 03/25/19 20 10:00 AM STEAM FINISHER documented as of this encounter Care Teams Plastics Fabricator Relationship Specialty Start Date End Date Gayla Barker, FINISH SANDER, HUMAN RELATIONS TEACHER [address] [place] [address] PCP - General Advanced Practice Nurse 03/25/19 Ct, [facility] [place] [employer] [place] 09/03/19 documented as of this encounter
--- OUTSIDE RECORDS SUMMARY | 2024-02-24 19:43 | XMS_ITS | Encounter Summary ---
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 No / Unsure 02/12/2021 1:48 PM LEVER OPERATOR documented as of this encounter Plan of Treatment Not on file documented as of this encounter Visit Diagnoses Not on filedocumented in this encounter Additional Health Concerns Assessment Noted Time PHQ-9 Depression Total Score: 0 03/25/19 20 10:00 AM LEVER OPERATOR documented as of this encounter Care Teams Gas Station Operator Relationship Specialty Start Date End Date Gayla Barker, ENGINE PILOT, APPLICATIONS DEVELOPMENT CONSULTANT [address] [place] [address] PCP - General Advanced Practice Nurse 03/25/19 Ct, [facility] [place] 09/03/19 documented as of this encounter
--- OUTSIDE RECORDS SUMMARY | 2024-02-24 19:43 | XMS_ITS | Encounter Summary ---
Author Organization [facility] Address [address] 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 No / Unsure 10/20/2021 2:11 PM CDT documented as of this encounter Miscellaneous Notes * Telephone Encounter - Stacey Hamilton, RN - 10/25/2021 3:33 PM CDT Patient was called back and referred to ANGELA Lopez at 15:34 on 10/25/21 per Plastic Extruding Machine Operator Elysia Marshall ----- Message from Shelley Campbell sent at 10/25/2021 2:29 PM CDT ----- PATIENT CALLED BACK ----- Message ----- From: Shelley Campbell Sent: 10/25/2021 12:31 PM CDT To: Moiz Frank [facility] Nurse Rosas Who Called: pt Problem/Complaint: has a question on one of her test results documented in this encounter Plan of Treatment Not on file documented as of this encounter Visit Diagnoses Not on filedocumented in this encounter Additional Health Concerns Assessment Noted Time PHQ-9 Depression Total Score: 0 03/25/19 20 10:00 AM ARCHITECTURE INTERN documented as of this encounter Care Teams Warp Trucker Relationship Specialty Start Date End Date Gayla Barker, HOG FEEDER, PSYCHOTHERAPIST COUNSELOR [address] [place] [address] PCP - General Advanced Practice Nurse 03/25/19 Ct, [facility] [place] [employer] [place] 09/03/19 documented as of this encounter
--- OUTSIDE RECORDS SUMMARY | 2024-02-24 19:43 | XMS_ITS | Encounter Summary ---
Author Organization [facility] Address [address] [place] [address] Phone Care Team Providers Care Critical Care Educator Name Role Phone Gayla Barker APRN, SUPERVISING FIRE MARSHAL Primary Care Provider Ct, [facility] Home [facility] Unavailable Marianela vailable Reason for Visit * Reason Comments Chest Congestion Encounter Details Date Type Department Care Team ([facility] st Contact Info) Description 06/25/2021 5:45 PM CDT Urgent Care Visit [facility] [address] [place] [address] Chitra Kaur APRN, SUPERVISING FIRE MARSHAL [address] [place] [address] Chest congestion (Primary Dx); Acute cough; URI with cough and congestion Discharge Disposition: Discharged to home or Selfcare [...] on file 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 No / Unsure 06/25/2021 5:40 PM CDT documented as of this encounter Last Filed Vital Signs Vital Sign Reading Time Taken Comments Blood Pressure 126/62 06/25/2021 5:48 PM CDT Pulse 73 06/25/2021 5:48 PM CDT Temperature 36.3 ??C (97.3 ??F) 06/25/2021 5:48 PM CD T Respiratory Rate 16 06/25/2021 5:48 PM CDT Oxygen Saturation 97% 06/25/2021 5:48 PM CDT Inhaled Oxygen Concentration - - Weight 74.8 kg (165 lb) 06/25/2021 5:48 PM CDT Height - - Body Mass Index 29.23 06/15/2021 8:38 AM CDT documented in this encounter Patient Instructions * Patient Instructions* Chitra Kaur APRN, SUPERVISING FIRE MARSHAL - 06/25/2021 5:45 PM CDT Images from the original note were not included. Cough, Adult Coughing is a reflex that clears your throat and your airways (respiratory system). Coughing helps to heal and protect your lungs. It is normal to cough occasionally, but a cough that happens with other symptoms or lasts a long time may be a sign of a condition that needs treatment. An acute cough may only last 2-3 weeks, while a chronic cough may last 8 or more weeks. Coughing is commonly caused by: ?? Infection of the respiratory systemby viruses or bacteria. ?? Breathing in substances that irritate your lungs. ?? Allergies. ?? Asthma. ?? Mucus that runs down the back of your throat (postnasal drip). ?? Smoking. ?? Acid backing up from the stomach into the esophagus (gastroesophageal reflux). ?? Certain medicines. ?? Chronic lung problems. ?? Other medical conditions such as heart failure or a blood clot in the lung (pulmonary embolism). Follow these instructions at home: Medicines ?? Take kffs-wfl-esablbm and prescription medicines only as told by your health care provider. ?? Talk with your health care provider before you take a cough suppressant medicine. Lifestyle ?? Avoid cigarette smoke. Do not use any products that contain nicotine or tobacco, such as cigarettes, e-cigarettes, and chewing tobacco. If you need help quitting, ask your health care provider. ?? Drink enough fluid to keep your urine pale yellow. ?? Avoid caffeine. ?? Do not drink alcohol if your health care provider tells you not to drink. General instructions ?? Pay close attention to changes in your cough. Tell your health care provider about them. ?? Always cover your mouth when you cough. ?? Avoid things that make you cough, such as perfume, candles, cleaning products, or campfire or tobacco smoke. ?? If the air is dry, use a cool mist vaporizer or humidifier in your bedroom or your home to help loosen secretions. ?? If your cough is worse at night, try to sleep in a semi-upright position. ?? Rest as needed. ?? Keep all follow-up visits as told by your health care provider. This is important. Contact a health care provider if you: ?? Have new symptoms. ?? Cough up pus. ?? Have a cough that does not get better after 2-3 weeks or gets worse. ?? Cannot control your cough with cough suppressant medicines and you are losing sleep. ?? Have pain that gets worse or pain that is not helped with medicine. ?? Have a fever. ?? Have unexplained weight loss. ?? Have night sweats. Get help right away if: ?? You cough up blood. ?? You have difficulty breathing. ?? Your heartbeat is very fast. These symptoms may represent a serious problem that is an emergency. Do not wait to see if the symptoms will go away. Get medical help right away. Call your local emergency services (911 in the [place] Do not drive yourself to the hospital. Summary ?? Coughing is a reflex that clears your throat and your airways. It is normal to cough occasionally, but a cough that happens with other symptoms or lasts a long time may be a sign of a condition that needs treatment. ?? Take pzfy-mcs-chssosj and prescription medicines only as told by your health care provider. ?? Always cover your mouth when you cough. ?? Contact a health care provider if you have new symptoms or a cough that does not get better after 2-3 weeks or gets worse. This information is not intended to replace advice given to you by your health care provider. Make sure you discuss any questions you have with your health care provider. Document Revised: 03/03/2019 Document Reviewed: 03/03/2019 [employer] Patient Education ?? 2021 redealize. documented in this encounter Progress Notes * Stacey Gutierres RN - 06/25/2021 5:45 PM CDT Carito Madison complains of Chest Congestion This is a recurrent problem. The current episode started in the past 7 days. The problem occurs constantly. The problem has been gradually worsening. Associated symptoms include congestion, coughing,headaches and a sore throat. The symptoms are aggravated by coughing. She has tried acetaminophen for the symptoms. The treatment provided no relief. Today's Review of Systems HENT: Positive for congestion and sore throat. Respiratory: Positive for cough. Neurological: Positive for headaches. Pt has been taking Mucinex. * Chitra Kaur APRN, CNP - 06/25/2021 5:45 PM CDT Carito Madison is a 31 y.o. female in the clinic for sick visit. Brought in by self. Historian for visit is self. Refer to ROS for symptoms. Symptoms started 1 week ago. Symptoms are worsening. Ill contacts reported: none Patient is COVID vaccinated: yes Patient is influenza vaccinated for 2020: no Patient has been taking OTC: mucinex Chief complaint, ROS, and all history documented by ancillary staff, and any copy/pasted information were reviewed and verified, with additions or corrections, as appropriate. Available past family, social, medical history was reviewed. Review of Systems HENT: Positive for congestion. Respiratory: Positive for cough. Physical Exam Vitals and nursing note reviewed. Constitutional: General: She is not in acute distress. HENT: Right Ear: Tympanic membrane and ear canal normal. Left Ear: Tympanic membrane and ear canal normal. Nose: Congestion present. Mouth/Throat: Pharynx: No posterior oropharyngeal erythema. Cardiovascular: Rate and Rhythm: Normal rate. Pulmonary: Effort: Pulmonary effort is normal. Breath sounds: Normal breath sounds. Comments: Cough is course Neurological: Mental Status: She is alert. Vitals: 06/25/21 1748 BP: 126/62 BP Location: Right Arm BP Position: Sitting BP Cuff Size: Regular Pulse: 73 Resp: 16 Temp: 97.3 ??F (36.3 ??C) SpO2: 97% Weight: 165 lb (74.8 kg) Chronic health conditions reviewed. Health conditions that may have affect on this illness/diagnosis include by is not limited to: lupus Diagnoses and all orders for this visit: Chest congestion - azithromycin (Zithromax Z-Maximilian) 250 MG Tablet; 2 tab(s) daily for 1 day, then 1 tab(s) daily for days 2-5. Acute cough URI with cough and congestion Care as instructed on AVS If medication [...] as of this encounter Visit Diagnoses Diagnosis Chest congestion- Primary Other symptoms involving respiratory system and chest Acute cough URI with cough and congestion documented in this encounter Additional Health Concerns Assessment Noted Time PHQ-9 Depression Total Score: 0 03/25/19 20 10:00 AM RADIOLOGIC TECH documented as of this encounter Care Teams Critical Care Educator Relationship Specialty Start Date End Date Gayla Barker APRN, CNP [address] [place] [address] PCP - General Advanced Practice Nurse 03/25/19 Ct, [facility] [place] Digital MEKHI 09/03/19 documented as of this encounter
--- OUTSIDE RECORDS SUMMARY | 2024-02-24 19:43 | XMS_ITS | Encounter Summary ---
Author Organization [facility] Address [address] [place] [address] Phone Care Team Providers Care Postal Service Clerk Name Role Phone Gayla Barker APRN, CNP Primary Care Provider Ct, Acute [facility] Home [facility] Unavailable Marianela vailable Reason for Visit * Reason Comments Lump Chest// Encounter Details Date Type Department Care Team (Late st Contact Info) Description 07/06/2021 7:45 AM CDT Office Visit [facility] - Primary Care - [place] [address] [place] [address] Gayla Barker APRN, TOW PICKER [address] [place] [address] Chest anomaly (Primary Dx); Systemic lupus erythematosus, unspecified SLE [...] on file Legal Sex Female 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 No / Unsure 10/20/2021 2:11 PM CDT documented as of this encounter Last Filed Vital Signs Vital Sign Reading Time Taken Comments Blood Pressure 122/78 07/06/2021 7:49 AM CDT Pulse 93 07/06/2021 7:49 AM CDT Temperature 36.5 ??C (97.7 ??F) 07/06/2021 7:49 AM CD T Respiratory Rate 20 07/06/2021 7:49 AM CDT Oxygen Saturation 97% 07/06/2021 7:49 AM CDT Inhaled Oxygen Concentration - - Weight 77.3 kg (170 lb 6.4 oz) 07/06/2021 7:49 A M CDT Height 160 cm (5' 3 ) 07/06/2021 7:49 AM CDT Body Mass Index 30.19 07/06/2021 7:49 AM CDT documented in this encounter Patient Instructions * Patient Instructions* Gayla Barker APRN, CNP - 07/06/2021 7:45 AM CDT Labs today Follow up as needed documented in this encounter Progress Notes * Dimple Junior RMA - 07/06/2021 7:45 AM CDT Carito Madison is a 31 y.o. female with current BMI: Body mass index is 29.23 kg/m??. Interventions discussed including: encourage daily physical activity and well- balanced diet. Carito Madison, 31 y.o., female is here for Lump (Chest//) Medication Refills: Patient reports/denies need for medication refills. Orders Pended: no Requested Prescriptions No prescriptions requested or ordered in this encounter Home Medications Medication Sig Start Date End Date Taking? Authorizing Provider hydroxychloroquine (PLAQUENIL) 200 MG Tablet Take 1 Tab by mouth daily. 05/09/19 Yes Gayla Barker APRN, CNP predniSONE (DELTASONE) 2.5 MG Tablet Take 2.5 mg by mouth daily. Yes ProviderIsis MD predniSONE (DELTASONE) 5 MG Tablet 01/31/21 Yes ProviderIsis MD sertraline (ZOLOFT) 25 MG Tablet Take 1 Tablet by mouth daily. 02/02/21 Yes Gayla Barker APRN, CNP Medications Discontinued During This Encounter Medication Reason ??? traZODone (DESYREL) 50 MG Tablet Therapy completed ??? valACYclovir (VALTREX) 500 MG Tablet Therapy completed ??? Sprintec 28 0.25-35 MG-MCG Tablet Therapy completed ??? ondansetron (ZOFRAN) 4 MG Tablet Therapy completed I have reviewed the home medication list [...] Health Maintenance Due Topic Date Due ??? SARS-COV-2 Immunization (3 - Pfizer risk series) 11/09/2020 ??? DTaP/Tdap/Td Immunization (1 - Tdap) 11/23/2020 Orders Pended: no The following BPA's have been addressed with the patient today: TDAP * Gayla Barker APRN, CNP - 07/06/2021 7:45 AM CDT Subjective: Patient presents with complaints of raised areas across her chest that coming go and are painful. She states it feels like muscle cramps. She states she is wondering if she is having a lupus flare and can get into her accounts specialist. She is also having pain in her back. She has a cyst in her right forearm. She also states that she took a test think she saw a amira line it would like a serum test. She states otherwise she feels good. Review of Systems Constitutional: Negative for fever. HENT: Negative. Respiratory: Negative for cough and shortness of breath. Cardiovascular: Negative for chest pain and palpitations. Has lumps that will come and go and are painful. Gastrointestinal: Negative for constipation, diarrhea, nausea and vomiting. Genitourinary: Negative. Musculoskeletal: Positive for back pain. Neurological: Negative for dizziness and headaches. Psychiatric/Behavioral: Negative. Objective: Physical Exam Vitals and nursing note reviewed. Constitutional: Appearance: Normal appearance. HENT: Head: Normocephalic and atraumatic. Cardiovascular: Rate and Rhythm: Normal rate and regular rhythm. Pulses: Normal pulses. Heart sounds: Normal heart sounds. Pulmonary: Effort: Pulmonary effort is normal. Breath sounds: Normal breath sounds. Comments: No masses felt. Chest: Chest wall: Tenderness present. Musculoskeletal: General: Normal range of motion. Cervical back: Normal range of motion. Skin: General: Skin is warm and dry. Neurological: Mental Status: She is alert and oriented to person, place, and time. Psychiatric: Mood and Affect: Mood normal. BP 122/78 Pulse 93 Temp 97.7 ??F (36.5 ??C) (Temporal) Resp 20 Ht 5' 3 (1.6 m) Wt 170 lb6.4 oz (77.3 kg) LMP 06/25/2021 SpO2 97% BMI 30.19 kg/m?? Assessment and Plan See Diagnoses, Orders, Follow-up, and Instructions Encounter Diagnoses Name Primary? Systemic lupus erythematosus, unspecified SLE type, unspecified organ involvement status (HCC) ??? Irregular periods ??? Chest anomaly Yes Labs today Follow up as needed Offered ultrasound and patient wanted to wait until labs to see if in lupus flair. Documentation for this visit on 07/06/2021 was completed using a template. I have seen and examinedthe patient. Everything documented was personally performed at this visit with the necessary additions, deletions and changes made as appropriate. documented in this encounter Miscellaneous Notes * Addendum Note - Dimple Junior RMA - 07/06/2021 7:45 AM CDTAddended by: VIVI JUNIOR on: 11/08/2021 08:13 AM Modules accepted: Orders documented in this encounter Plan of Treatment Not on file documented as of this encounter Procedures Procedure Name Priority Date/Time Associated Diagnosis Comments CYCLIC CITRULLINATED PEPTIDE 3 Routine 07/06/2021 8:29 AM CDT Systemic lupus erythematosus, unspecified SLE type, unspecified organ involvement status (HCC) CMP (COMPREHENSIVE METABOLIC PANEL) Routine 07/06/2021 8:29 AM CDT Systemic lupus erythematosus, unspecified SLE type, unspecified organ involvement status (HCC) ANTI DOUBLE STRAND DNA (DS DNA) ANTIBODY Routine 07/06/2021 8:29 AM CDT Systemic lupus erythematosus, unspecified SLE type, unspecified organ involvement status (HCC) documented in this encounter Results * HCG BETA SUBUNIT SERUM QUANT (07/06/2021 8:29 AM CDT) HCG BETA SUBUNIT, QUANT <=0.50 <=5.00 mIU/mL 07/06/2021 1:26 PM CDT [facility] Blood Venipuncture / Unknown 07/06/2021 8:29 AM CDT 07/06/2021 8:30 AM CDT Narrative [facility] - 07/06/2021 1:26 PM CDT HCG Interpretive Reference Ranges Wks of : References Ranges 4 wks [phone] wks [phone] wks [phone] 7 wks [id number] 8 wks [id number] 9 wks [id number] 10 wks [id number] 14 wks [id number] 15 wks [id number] 16 wks [phone] 17 wks [id number] 18 wks [phone] 19 wks [phone] Non- Female: 0-4 us Gayla Barker APRN, CNP CHEMISTRY ORDERABLES Fi nal Result [facility] [address] [place] [address] * CMP (COMPREHENSIVE METABOLIC PANEL) (07/06/2021 8:29 AM CDT) SODIUM 138 136 - 144 mmol/L 07/06/2021 1:54 PM CDT [facility] POTASSIUM 3.9 3.5 - 5.1 mmol/L 07/06/2021 1:54 PM CDT [facility] CHLORIDE 102 100 - 110 mmol/L 07/06/2021 1:54 PM CDT [facility] CO2, VENOUS 23 22 - 32 mmol/L 07/06/2021 1:54 PM CDT [facility] ANION GAP 16.9 8.0 - 20.0 mmol/L 07/06/2021 1:54 PM CDT [facility] GLUCOSE 80 70 - 99 mg/dL 07/06/2021 1:54 PM CDT [facility] BUN 13 6 - 20 mg/dL 07/06/2021 1:54 PM CDT [facility] CREATININE, BLOOD 0.66 0.60 - 1.10 mg/dL 07/06/2021 1:54 PM CDT [facility] BUN/CREATININE RATIO 20 12 - 20 ratio 07/06/2021 1:54 PM CDT [facility] TOTAL PROTEIN 7.4 6.0 - 8.3 g/dL 07/06/2021 1:54 PM CDT [facility] ALBUMIN 4.7 3.5 - 5.2 g/dL 07/06/2021 1:54 PM CDT [facility] Comment: The colormetric methods used for the determination of Albumin may lead to falsely elevated test results in patients suffering from renal failure or insufficiency due to interference with other proteins. A/G RATIO 1.7 1.0 - 2.0 07/06/2021 1:54 PM CDT [facility] CALCIUM 9.4 8.9 - 10.3 mg/dL 07/06/2021 1:54 PM CDT [facility] T BILI 0.3 <=1.2 mg/dL 07/06/2021 1:54 PM CDT [facility] SGOT (AST) 15 <=32 U/L 07/06/2021 1:54 PM CDT [facility] SGPT (ALT) 12 <=41 U/L 07/06/2021 1:54 PM CDT [facility] ALKALINE PHOSPHATASE 59 35 - 105 U/L 07/06/2021 1:54 PM CDT [facility] GFR, EST. NONAFRICAN >60 >=60 07/06/2021 1:54 PM CDT [facility] GFR, EST. >60 >=60 022 1:54 PM CDT [facility] Comment: Creatinine Clearance is the preferred criteria for selecting drug dose adjustments in renally impaired patients. ??The GFR is provided as additional pertinent clinical information. GFR is reported in mL/min/1.73 sq m. IS THE PATIENT REQUIRED TO BE FASTING? No 07/06/2021 1:54 PM CDT [facility] Blood Venipuncture / Unknown 07/06/2021 8:29 AM CDT 07/06/2021 8:30 AM CDT us Gayla Barker APRN, CNP CHEMISTRY ORDERABLES Fi nal Result [facility] [address] [place] [address] * C4 COMPLEMENT (07/06/2021 8:29 AM CDT) C4 COMPLEMENT 25 16 - 38 mg/dL [facility] 07/08/2021 1:37 AM CDT [facility] Blood Venipuncture / Unknown 07/06/2021 8:29 AM CDT 07/06/2021 8:30 AM CDT us Gayla Barker APRN, CNP CHEMISTRY ORDERABLES Fi nal Result [facility] [address] [place] [address], [place] [phone] * (ABNORMAL) HAND BLOCKER AB (07/06/2021 8:29 AM CDT) HAND BLOCKER AB 1.1(H) <1.0 AI 07/06/2021 10:11 PM CDT [facility] Blood Venipuncture / Unknown 07/06/2021 8:29 AM CDT 07/06/2021 8:[address] [facility] - 07/06/2021 10:11 PM CDT Antibody testing was performed by multiplex flow immunoassay on the [employer] platform. us Gayla Barker APRN, CNP IMMUNOLOGY ORDERABLES F inal Result Performing Organization Address City/[facility]/ZIP Co de Phone Number [facility] [address] [place] [address], [place] * CYCLIC CITRULLINATED PEPTIDE 3 (07/06/2021 8:29 AM CDT) CCP IGG <0.5 <3.0 U/mL 07/06/2021 10:11 PM CDT [facility] Blood Venipuncture / Unknown 07/06/2021 8:29 AM CDT 07/06/2021 8:[address] [facility] - 07/06/2021 10:11 PM CDT Antibody testing was performed by multiplex flow immunoassay on the [employer] platform. us Gayla Barker APRN, CNP IMMUNOLOGY ORDERABLES F inal Result [facility] [address] [place] [address], [place] * ERYTHROCYTE SEDIMENTATION RATE (ESR) (07/06/2021 8:29 AM CDT) Pathologist [facility] ESR (SED RATE, ERYTHROCYTE SEDIMENTATION RATE) 12 <20 mm/h 07/06/2021 1:44 PM CDT [facility] Comment: Patients presenting with increased level of fibrinogen, gamma globulins, or abnormally shaped RBCs could affect the results for the erythrocyte sedimentation rate (ESR). Results should be clinically correlated. Blood Venipuncture / Unknown 07/06/2021 8:29 AM CDT 07/06/2021 8:30 AM CDT us Gayla Barker APRN, CNP HEMATOLOGY ORDERABLES F inal Result [facility] [address] [place] [address] * (ABNORMAL) BARAK SCREEN MULTIPLEX W/REFLEX PHUONG (07/06/2021 8:29 AM CDT) [facility] BARAK SCR MULTIPLEX Positive(A ) Negative, See comment 07/07/2021 7:[address] [facility] Blood Venipuncture / Unknown 07/06/2021 8:29 AM CDT 07/06/2021 8:[address] [facility] - 07/07/2021 7:03 AM CDT Antibody testing was performed by multiplex flow immunoassay on the [employer] platform. us Gayla Barker APRN, CNP IMMUNOLOGY ORDERABLES F inal Result [facility] [address] [facility] [place] [address], [place] * (ABNORMAL) C-REACTIVE PROTEIN (CRP) HIGH SENSITIVE (07/06/2021 8:29 AM CDT) [facility] CRP ULTRAQUANT 6.37(H) <5.00 mg/L 07/06/2021 9:32 PM CDT [facility] Blood Venipuncture / Unknown 07/06/2021 8:29 AM CDT 07/06/2021 8:30 AM CDT us Gayla Barker APRN, CNP CHEMISTRY ORDERABLES Fi nal Result Performing Organization Address [facility] Co de Phone Number [facility] [address] [place] [address], [place] * (ABNORMAL) ANTI DOUBLE STRAND DNA (DS DNA) ANTIBODY (07/06/2021 8:29 AM CDT) DNA AB, DOUBLE STRAND 6(H) <5 IU/mL 07/06/2021 10:[address] [facility] Blood Venipuncture / Unknown 07/06/2021 8:29 AM CDT 07/06/2021 8:[address] [facility] - 07/06/2021 10:11 PM CDT <= 4 Negative 5-9 Indeterminate >= 10 Positive Antibody testing was performed by multiplex flow immunoassay on the [employer] platform. us Gayla Barker APRN, CNP IMMUNOLOGY ORDERABLES F inal Result Performing Organization Address [facility] Co de Phone Number [facility] [address] [place] [address], [place] documented in this encounter Visit Diagnoses Diagnosis Chest anomaly- Primary Systemic lupus erythematosus, unspecified SLE type, unspecified organ involvement status (HCC) Irregular periods Irregular menstrual cycle documented in this encounter Additional Health Concerns Assessment Noted Time PHQ-9 Depression Total Score: 0 03/25/19 20 10:00 AM FOUNDATION DRILL OPERATOR HELPER documented as of this encounter Care Teams Postal Service Clerk Relationship Specialty Start Date End Date Gayla Barker APRN, TOW PICKER [address] [place] [address] PCP - General Advanced Practice Nurse 03/25/19 Ct, [facility] [place] Digital MEKHI 09/03/19 documented as of this encounter
--- OUTSIDE RECORDS SUMMARY | 2024-02-24 19:44 | XMS_ITS | Encounter Summary ---
Author Organization [facility] Address [address] [place] [address] Phone Care Team Providers Care Underground Repairer Name Role Phone Gayla Barker APRN, COMPUTER CUSTOMER SUPPORT SPECIALIST Primary Care Provider Ct[facility] Unavailable Marianela vailable Encounter Details Date Type Department Care Team (Latest Contact Info) Description 03/19/2020 [facility] [address] [place] [id number] Ruslan Shea MD Drug-induced systemic lupus erythematosus, unspecified organ involvement status (HCC) (Primary Dx); Paralytic ileus (HCC); Isolated non-nephrotic proteinuria; Anxiety hyperventilation Social History Tobacco Use Types Packs/Day Years [...] highest degree you have received? 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 Yes 03/18/2020 4:51 PM PEANUT VENDOR documented as of this encounter Plan of Treatment Not on file documented as of this encounter Visit Diagnoses Diagnosis Drug-induced systemic lupus erythematosus, unspecified organ involvement status (HCC)- Primary Paralytic ileus (HCC) Paralytic ileus Isolated non-nephrotic proteinuria Proteinuria Anxiety hyperventilation Respiratory malfunction arising from mental factors documented in this encounter Additional Health Concerns Infection Onset Date Last Indicated Resolved Time COVID - 19 03/18/2020 03/18/2020 03/19/2020 6:44 AM PEANUT VENDOR Assessment Noted Time PHQ-9 Depression Total Score: 0 03/25/19 10:00 AM PEANUT VENDOR documented as of this encounter Care Teams Underground Repairer Relationship Specialty Start Date End Date Gayla Barker, EVENT SALES MANAGER, COMPUTER CUSTOMER SUPPORT SPECIALIST [address] [place] [address] PCP - General Advanced Practice Nurse 03/25/19 Ct[facility] [place] [employer] MEKHI 09/03/19 documented as of this encounter
--- OUTSIDE RECORDS SUMMARY | 2024-02-24 19:44 | XMS_ITS | Encounter Summary ---
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 No / Unsure 04/07/2020 8:36 AM TICKER MAINTAINER documented as of this encounter Plan of Treatment Not on file documented as of this encounter Visit Diagnoses Not on filedocumented in this encounter Additional Health Concerns Assessment Noted Time PHQ-9 Depression Total Score: 0 03/25/19 20 10:00 AM TICKER MAINTAINER documented as of this encounter Care Teams Paper Cone Grader Relationship Specialty Start Date End Date Gayla Barker, URGENT CARE PHYSICIAN, BOILER ROOM OPERATOR [address] [place] [address] PCP - General Advanced Practice Nurse 03/25/19 [facility] [place] [employer] [facility] 09/03/19 documented as of this encounter
--- OUTSIDE RECORDS SUMMARY | 2024-02-24 19:44 | XMS_ITS | Encounter Summary ---
Author Organization [facility] Address [address] [place] [address] Phone Care Team Providers Care Airline Security Representative Name Role Phone Gayla Barker APRN, HARSHA Primary Care Provider Ct, [facility] Unavailable Marianela vailable Reason for Visit * Reason Comments Dizziness Headache Encounter Details Date Type Department Care Team (Late st Contact Info) Description 04/07/2020 8:30 AM SIGNAL TIMER Office Visit [facility] - Primary Care - [place] [address] [place] [phone] Gayla Barker APRN, MANAGER PHARMACY [address] [place] [address] Anxiety (Primary Dx); High risk medication use; Fatigue, unspecified type; Dizziness Discharge Disposition: Discharged to home or Selfcare [...] on file Legal Sex Female 10:27 AM SIGNAL TIMER Gender Identity Not on file Sexual Orientation Not on file COVID-19 Exposure Response Date Recorded In the last month, have you been in contact with someone who was confirmed or suspected to have Coronavirus / COVID-19? No / Unsure 04/07/2020 8:36 AM SIGNAL TIMER documented as of this encounter Last Filed Vital Signs Vital Sign Reading Time Taken Comments Blood Pressure 112/70 04/07/2020 8:39 AM SIGNAL TIMER Pulse 68 04/07/2020 8:39 AM SIGNAL TIMER Temperature 36.5 ??C (97.7 ??F) 04/07/2020 8:39 AM CS T Respiratory Rate 20 04/07/2020 8:39 AM SIGNAL TIMER Oxygen Saturation 98% 04/07/2020 8:39 AM SIGNAL TIMER Inhaled Oxygen Concentration - - Weight 78.6 kg (173 lb 3.2 oz) 04/07/2020 8:39 A M SIGNAL TIMER Height 160 cm (5' 3 ) 04/07/2020 8:39 AM SIGNAL TIMER Body Mass Index 30.68 04/07/2020 8:39 AM SIGNAL TIMER documented in this encounter Patient Instructions * Patient Instructions* Gayla Barker APN, CNP - 04/07/2020 8:30 AM SIGNAL TIMER Urine drug screen Take vitamin Continue Xanax sparingly for anxiety Follow up in 3 months AL TIMER AL TIMER documented in this encounter Progress Notes * Dimple Junior RMA - 04/07/2020 8:30 AM CST Carito Madison is a 29 y.o. female with current BMI: Body mass index is 31.35 kg/m??. Interventions discussed including: encourage daily physical activity and well- balanced diet. Carito Madison, 29 y.o., female is here for Dizziness and Headache Medication Refills: Patient reports/denies need for medication refills. Orders Pended: no Requested Prescriptions No prescriptions requested or ordered in this encounter Home Medications Medication Sig Start Date End Date Taking? Authorizing Provider albuterol (ProAir HFA) 108 (90 Base) MCG/ACT Aerosol Solution take 2 Puffs by inhalation every 4 hours as needed for Wheezing or Cough. 12/28/19 Yes Chitra Kaur APN, CNP ALPRAZolam (XANAX) 0.5 MG Tablet Take 1 Tab by mouth 2 times daily as needed for Anxiety. Patient not taking: Reported on 03/30/2020 11/14/19 Gayla Barker APN, CNP Belimumab (Benlysta) 200 MG/ML Solution Auto-injector 11/04/19 Yes Isis Sheffield MD diclofenac sodium (VOLTAREN) 1 % Gel APPLY 2 GRAMS TOPICALLY TO ARTHRITIS JOINTS 3 TIMES A DAY NEEDED 12/11/19 Isis Sheffield MD ferrous sulfate 325 (65 Fe) MG Tablet Take 1 Tab by mouth daily. 10/28/19 Yes Gayla Barker APN, CNP hydroxychloroquine (PLAQUENIL) 200 MG Tablet Take 1 Tab by mouth daily. 05/09/19 Yes Gayla Barker APN, CNP ipratropium (ATROVENT) 0.03 % Solution INSTILL 1 SPRAY IN EACH NOSTRIL TWICE DAILY 01/28/20 ProviderIsis MD meclizine (ANTIVERT) 25 MG Tablet Take 1 Tab by mouth 3 times daily as needed for Dizziness. Patient not taking: Reported on 04/07/2020 03/10/20 03/10/21 Brian Mon MD OMEPRAZOLE PO Take 20 mg by mouth. Yes Emergency, Nurse, RN ondansetron (Zofran) 4 MG Tablet Take 4 mg by mouth every 8 hours as needed for Nausea - 1st line. Yes ProviderIsis MD predniSONE (DELTASONE) 1 MG Tablet Take 1 Tab by mouth daily. Patient not taking: Reported on 03/18/2020 09/05/19 Gayla Barker APN, CNP predniSONE (DELTASONE) 5 MG Tablet Take 5 mg by mouth. 11/11/19 11/10/20 Yes Isis Sheffield MD propranolol (INDERAL) 10 MG Tablet Take 1 Tab by mouth 3 times daily. 1-2 tablets as needed for anxiety up to 3x/day Patient not taking: Reported on 04/07/2020 03/26/20 Gayla Barker APN, HARSHA There are no discontinued medications. I have reviewed the home medication list with the patient and have reconciled discrepancies. The list is accurate to the best of my knowledge. Smoking Status: Social History Tobacco Use ??? Smoking status: Former Smoker ??? Smokeless tobacco: Never Used ??? Tobacco comment: only when drink Substance Use Topics ??? Alcohol use: Yes Comment: occasionally ??? Drug use: Yes Types: Marijuana, Cocaine Smoking Cessation Counseling Given: no Health Care Maintenance: Health Maintenance Due Topic Date Due ??? SARS-COV-2 Immunization (1 of 2) 2008 ??? DTaP/Tdap/Td Immunization (2 - Td) 12/29/2018 ??? Influenza Immunization (1) 10/28/2019 Orders Pended: no The following BPA's have been addressed with the patient today: Flu and TDAP AL TIMER * Gayla Barker APN, CNP - 04/07/2020 8:30 AM CST Subjective: HPI Patient is a 29 year old female who presents for dizziness. She states she has tried the propanololand does not like it and does not work for her. She states she would like to go back on the xanax. Patient did take a tramadol previously that she had at home that she was told to take from an ER visit related to a headache. Will get urine drug screen and this will likely show up in screening. States she is seeing her ENT for her dizziness. She is scheduled to get a CT scan and be assessed for vertigo. She currently gets infusions for lupus and been complaining of severe fatigue since that has began.She states she has had low iron in previous labs. Concerned about lab findings, high neutrophils. Labs discussed and likely related to infusions. Review of Systems Constitutional: Positive for fatigue. Negative for fever. HENT: Negative. Respiratory: Negative for cough and shortness of breath. Cardiovascular: Negative for chest pain and palpitations. Gastrointestinal: Negative for constipation, diarrhea, nausea and vomiting. Genitourinary: Negative. Musculoskeletal: Negative. Neurological: Positive for dizziness and headaches. Psychiatric/Behavioral: The patient is nervous/anxious. Objective: Physical Exam Vitals and nursing note [...] Heart sounds: Normal heart sounds. No murmur. Pulmonary: Effort: Pulmonary effort is normal. No [...] time. Cranial Nerves: No cranial nerve deficit. BP 112/70 Pulse 68 Temp 97.7 ??F (36.5 ??C) (Temporal) Resp 20 Ht 5' 3 (1.6 m) Wt 173 lb3.2 oz (78.6 kg) LMP 02/27/2020 (Approximate) SpO2 98% BMI 30.68 kg/m?? Assessment and Plan See Diagnoses, Orders, Follow-up, and Instructions Encounter Diagnoses Name Primary? High risk medication use ??? Fatigue, unspecified type ??? Anxiety Yes ??? Dizziness Urine drug screen Take vitamin Continue Xanax sparingly for anxiety Follow up in 3 months Documentation for this visit on 04/07/2020 was completed using a template. I have seen and examinedthe patient. Everything documented was personally performed at this visit with the necessary additions, deletions and changes made as appropriate. AL TIMER documented in this encounter Plan of Treatment Not on file documented as of this encounter Results * URINE DRUG SCREEN (04/07/2020) Urine us Gayla Barker APRN, CNP URINE ORDERABLES Final Result documented in this encounter Visit Diagnoses Diagnosis Anxiety- Primary Anxiety state, unspecified High risk medication use Encounter for long-term (current) use of other medications Fatigue, unspecified type Dizziness Dizziness and giddiness documented in this encounter Additional Health Concerns Assessment Noted Time PHQ-9 Depression Total Score: 0 03/25/19 20 10:00 AM SIGNAL TIMER documented as of this encounter Care Teams Airline Security Representative Relationship Specialty Start Date End Date Gayla Barker, HARSHA VALENCIA [address] [place] [address] PCP - General Advanced Practice Nurse 03/25/19 [facility] [place] [employer] [facility] 09/03/19 documented as of this encounter
--- OUTSIDE RECORDS SUMMARY | 2024-02-24 19:44 | XMS_ITS | Encounter Summary ---
Author Organization [facility] Address [address] [place] [address] Phone Care Team Providers Care Bone Char Operator Name Role Phone Gayla Barker APRN, SCRAPER MEAT Primary Care Provider Ct, [facility] Unavailable Marianela vailable Encounter Details Date Type Department Care Team (Late st Contact Info) Description 04/07/2020 10:50 AM QUALITY TESTER Lab [facility] - Primary Care - [address] [phone] Lab, [facility] Discharge Disposition: Discharged to home or Selfcare [...] on file Legal Sex Female 10:27 AM QUALITY TESTER Gender Identity Not on file Sexual Orientation Not on file COVID-19 Exposure Response Date Recorded In the last month, have you been in contact with someone who was confirmed or suspected to have Coronavirus / COVID-19? No / Unsure 04/07/2020 8:36 AM QUALITY TESTER documented as of this encounter Progress Notes * Najma Simpson RMA - 04/07/2020 10:50 AM CST uds sent to [facility] Script given ITY TESTER documented in this encounter Plan of Treatment Not on file documented as of this encounter Visit Diagnoses Not on filedocumented in this encounter Additional Health Concerns Assessment Noted Time PHQ-9 Depression Total Score: 0 03/25/19 10:00 AM QUALITY TESTER documented as of this encounter Care Teams Bone Char Operator Relationship Specialty Start Date End Date Gayla Barker, STATISTICAL PROGRAMMER, SCRAPER MEAT [address] [place] [address] PCP - General Advanced Practice Nurse 03/25/19 Ct[facility] [place] [employer] [place] 09/03/19 documented as of this encounter
--- OUTSIDE RECORDS SUMMARY | 2024-02-24 19:44 | XMS_ITS | Encounter Summary ---
Author Organization [facility] Address [address] [place] [address] Phone Care Team Providers Care Creative Consultant Name Role Phone Gayla Barker APRN, MUSHROOM PACKER Primary Care Provider Ct, Acute Covid At Home Care Unavailable Marianela vailable Reason for Visit * Reason Comments COVID-19 Encounter Details Date Type Department Care Team ([facility] st Contact Info) Description 12/06/2020 5:43 PM CDT - 12/06/2020 7:00 PM CDT Emergency [facility] Emergency [address] [place] [address] Faizan Loco, PAC [address] [place] [address] Viral illness Discharge Disposition: Discharged to home or Selfcare [...] received? Associate degree: academic program 09/24/2020 Comments Yes Sex and Gender Information Value Date Recorded Sex Assigned at Not on file Legal Sex Female 10:27 AM TUBE BUILDER AIRPLANE Gender Identity Not on file Sexual Orientation Not on file COVID-19 Exposure Response Date Recorded In the last month, have you been in contact with someone who was confirmed or suspected to have Coronavirus / COVID-19? No / Unsure 12/06/2020 5:38 PM CDT documented as of this encounter Last Filed Vital Signs Vital Sign Reading Time Taken Comments Blood Pressure 120/76 12/06/2020 6:59 PM CDT Pulse 100 12/06/2020 6:59 PM CDT Temperature 36.6 ??C (97.8 ??F) 12/06/2020 5:37 PM CD T Respiratory Rate 18 12/06/2020 6:59 PM CDT Oxygen Saturation 99% 12/06/2020 6:59 PM CDT Inhaled Oxygen Concentration - - Weight 85.3 kg (188 lb) 12/06/2020 5:37 PM CDT Height 157.5 cm (5' 2 ) 12/06/2020 5:37 PM CDT Body Mass Index 34.39 12/06/2020 5:37 PM CDT documented in this encounter Discharge Instructions * Attachments The following attachments cannot be sent through Care Everywhere. * Viral Syndrome (Adult) (Angolan) documented in this encounter Medications at Time of Discharge hydroxychloroqui ne (PLAQUENIL) 200 MG Tablet Take 1 Tab by mouth daily. 90 Tab 3 05/09/2019 albuterol (ProAir HFA) 108 (90 Base) MCG/ACT Aerosol SolutionIndicati ons:Bronchioliti s take 2 Puffs by inhalation every 4 hours as needed for Wheezing or Cough. 1 Inhaler 12/28/2019 1 ALPRAZolam (XANAX) 0.5 MG Tablet Take 1 Tablet by mouth 2 times daily as needed for Anxiety. 60 Tablet 1 05/27/2020 1 ASPIRIN 81 PO Take by mouth. 02 1 Belimumab (Benlysta) 200 MG/ML Solution Auto-injector 11/04/2019 1 ferrous sulfate 325 (65 Fe) MG Tablet Take 1 Tab by mouth daily. 30 Tab 11 10/28/2019 1 metroNIDAZOLE (METROGEL) 0.75 % Gel 1 Applicatorful by Vaginal route nightly. 70 g 05/31/2020 1 OMEPRAZOLE PO Take 20 mg by mouth. 1 ondansetron (Zofran) 4 MG Tablet Take 4 mg by mouth every 8 hours as needed for Nausea - 1st line. 1 sertraline (ZOLOFT) 25 MG Tablet Take 25 mg by mouth. 06/11/2020 1 documented as of this encounter ED Notes * Samantha Sim RN - 12/06/2020 6:59 PM CDT Patient discharged. Discharge instructions and patient educational material reviewed with patient; questions and concerns addressed; patient verbalizes understanding, using teach backPatient discharged per ambulatory mode with self as responsible republican. * Faizan Loco, CARIDAD - 12/06/2020 6:09 PM CDT Chief Complaint Patient presents with ??? COVID-19 Carito Madison is a 30 y.o. female who presents to the ED c/o sore throat, diarrhea, cough, SHELTON x5 days. Patient had teledoc visit and started on a zpack. She is 33 weeks . Past Medical History Positives No date: Asthma No date: CKD (chronic kidney disease) stage 1, GFR 90 ml/min or greater Comment: as a result of lupus No date: Lupus (systemic lupus erythematosus) ([facility]) No date: Seizures ([facility]) No current facility-administered medications for this encounter. Current Outpatient Medications Medication Sig Dispense Refill ??? albuterol (ProAir HFA) 108 (90 Base) MCG/ACT Aerosol Solution take 2 Puffs by inhalation every 4 hours as needed for Wheezing or Cough. (Patient not taking: Reported on 07/11/2020) 1 Inhaler 0 ??? ALPRAZolam (XANAX) 0.5 MG Tablet Take 1 Tablet by mouth 2 times daily as needed for Anxiety. (Patient not taking: Reported on 07/11/2020) 60 Tablet 1 ??? ASPIRIN 81 PO Take by mouth. ??? Belimumab (Benlysta) 200 MG/ML Solution Auto-injector (Patient not taking: Reported on 07/11/2020) ??? ferrous sulfate 325 (65 Fe) MG Tablet Take 1 Tab by mouth daily. (Patient not taking: Reported on 07/11/2020) 30 Tab 11 ??? hydroxychloroquine (PLAQUENIL) 200 MG Tablet Take 1 Tab by mouth daily. 90 Tab 3 ??? metroNIDAZOLE (METROGEL) 0.75 % Gel 1 Applicatorful by Vaginal route nightly. (Patient not taking: Reported on 07/11/2020) 70 g 0 ??? OMEPRAZOLE PO Take 20 mg by mouth. (Patient not taking: Reported on 10/06/2020) ??? ondansetron (Zofran) 4 MG Tablet Take 4 mg by mouth every 8 hours as needed for Nausea - 1st line. (Patient not taking: Reported on 10/06/2020) ??? sertraline (ZOLOFT) 25 MG Tablet Take 25 mg by mouth. (Patient not taking: Reported on 10/06/2020) Allergies Allergen Reactions ??? Azathioprine Hives ??? [...] History: Procedure Laterality Date ??? APPENDECTOMY ??? WRIST SURGERY Social History Socioeconomic History [...] risk not applicable to this patient. BP 115/59 Pulse 104 Temp 97.8 ??F (36.6 ??C) (Tympanic) Resp 18 Ht 5' 2 (1.575 m) Wt 188lb (85.3 kg) LMP 02/27/2020 (Approximate) SpO2 97% BMI 34.39 kg/m?? Review of Systems Constitutional: Positive for chills. Negative for fatigue and fever. HENT: Positive for congestion, ear pain and sore throat. Respiratory: Positive for cough. Cardiovascular: Negative for chest pain and palpitations. Gastrointestinal: Negative for abdominal pain, constipation, diarrhea, nausea and vomiting. Genitourinary: Negative for dysuria, frequency, hematuria and urgency. Musculoskeletal: Positive for myalgias. Negative for back pain. Skin: Negative for color change and wound. Neurological: Positive for headaches. All other systems reviewed and are negative. Physical Exam Vitals and nursing note reviewed. Constitutional: General: She is not in acute distress. Appearance: She is well-developed. She is not diaphoretic. HENT: Head: Normocephalic and atraumatic. Right Ear: Tympanic membrane normal. Left Ear: Tympanic membrane normal. Nose: Nose normal. Mouth/Throat: Mouth: Mucous membranes are moist. Pharynx: Posterior oropharyngeal erythema present. No oropharyngeal exudate. Eyes: Pupils: Pupils are equal, round, and reactive to light. Neck: Thyroid: No thyromegaly. Cardiovascular: Rate and Rhythm: Normal rate and regular rhythm. Heart sounds: Normal heart sounds. No murmur heard. Pulmonary: Effort: Pulmonary effort is normal. No respiratory distress. Breath sounds: Normal breath sounds. No wheezing, rhonchi or rales. Chest: Chest wall: No tenderness. Abdominal: General: Bowel sounds are normal. There is no distension. Palpations: Abdomen is soft. There is no mass. Tenderness: There is no abdominal tenderness. There is no guarding or rebound. Musculoskeletal: General: No tenderness. Normal range of motion. Cervical back: Normal range of motion and neck supple. Skin: General: Skin is warm and dry. Coloration: Skin is not pale. Findings: No erythema or rash. Neurological: Mental Status: She is alert and oriented to person, place, and time. Cranial Nerves: No cranial nerve deficit. Psychiatric: Behavior: Behavior normal. No orders to display Procedures Imaging Results None MDM Coding Clinical Impression 1. Viral illness Continue zpack as prescribed. PCP follow up in 2-3 days. Return to ED for worsening sxs. The patient remained stable throughout their ED stay. My clinical impression was discussed with thepatient/family. Labs and radiology results were reviewed with them. I gave them the opportunity to ask questions, and addressed them as completely as possible given the information available at present. The therapeutic plan was discussed, advised to take medications as instructed, instructions weregiven and the importance of primary care follow up was stressed and encouraged. The patient/family voiced understanding of the plan, indications to return, and the need for follow up. Cosigned by Dewey Dinero MD at 12/07/2020 5:46 AM CDT * Lisy Connor RN - 12/06/2020 5:41 PM CDT Patient presents to ED triage with complaint of covid symptoms. Patient complaining of sore throat,diarrhea, sweating. Patient had a tele visit with her doctor and was prescribed steroid. Patient is33 week . No distress noted. documented in this encounter Plan of Treatment Not on file documented as of this encounter Procedures Procedure Name Priority Date/Time Associated Diagnosis Comments POCT INFLUENZA A & B STAT 12/06/2020 6:18 PM CDT SARS-COV-2 BY MOLECULAR STAT 12/06/2020 6:17 PM CDT CULTURE, GRP A STREPTOCOCCUS, CULT ONLY STAT 12/06/2020 6:17 PM CDT POCT GROUP A STREP SCREEN RAPID STAT 12/06/2020 6:14 PM CDT documented in this encounter Results * POCT Influenza A & B (12/06/2020 6:18 PM CDT) POC INFLU A Presumptive negative Group A POC INFLU B Presumptive negative Group B POC INFLUENZA CONTROL Clip Loading Machine Feeder Pass 12/06/2020 6:18 PM CDT Faizan Loco [facility] POINT OF CARE TESTIN G (MANUAL) Final Result * Culture, Grp A Streptococcus, Cult Only (12/06/2020 6:17 PM CDT) CULTURE RESULTS NO STREP PYOGENES (GROUP A BETA HEMOLYTIC STREP) ISOLATED AFTER 2 DAYS 12/09/2020 6:37 AM CDT [facility] Culture SPECIMEN FROM THROAT / Unknown Non-Phlebotomy Collection / Unknown 12/06/2020 6:17 PM CDT 12/06/2020 7:05 PM CDT Faizan Loco [facility] MICROBIOLOGY - GENER AL ORDERABLES Final Result Performing Organization Address City/State/[facility] Co de Phone Number [facility] [address] [place] [address], * SARS-COV-2 BY MOLECULAR (12/06/2020 6:17 PM CDT) SARSCOV2 NOT DETECTED (Referen ce Range for this test is Not Detected ) [facility] THERMOFISHER FAST DX 12/07/2020 5:19 PM CDT [facility] Comment:This test was perfor med by a RT-PCR method. Other NASOPHARYNGEAL STRUCTURE / Unknown Non-Phlebotomy Collection / Unknown 12/06/2020 6:17 PM CDT 12/06/2020 7:05 PM CDT Narrative [facility] - 12/07/2020 5:19 PM CDT Authorized Fact Sheets about this test for providers and patients are available at: https://www.fda.gov/medical-devices/dvllpfdrx-pjcuxtflcq-jodvveu-devices/emergen -us e-authorizations Faizan Loco PAC MICROBIOLOGY - GENER AL ORDERABLES Final Result [facility] [address] [place] [address], * POCT Group A Strep Screen Rapid (12/06/2020 6:14 PM CDT) POC STREP SCRN Presumptive negative POC STREP SCREEN CONTROL Clip Loading Machine Feeder Pass 12/06/2020 6:14 PM CDT Faizan Loco PAC POINT OF CARE TESTIN G (MANUAL) Final Result documented in this encounter Visit Diagnoses Diagnosis Viral illness- Primary Unspecified viral infection, in conditions classified elsewhere and of unspecified site documented in this encounter Additional Health Concerns Infection Onset Date Last Indicated Resolved Time COVID - 19 12/06/2020 12/06/2020 12/26/2020 12:1 6 AM CDT Assessment Noted Time PHQ-9 Depression Total Score: 0 03/25/19 10:00 AM TUBE BUILDER AIRPLANE documented as of this encounter Care Teams Creative Consultant Relationship Specialty Start Date End Date Gayla Barker, SHOWER ROOM ATTENDANT, MUSHROOM PACKER [address] [place] [address] PCP - General Advanced Practice Nurse 03/25/19 Ct, [facility] [place] Digital MEKHI 09/03/19 documented as of this encounter
--- OUTSIDE RECORDS SUMMARY | 2024-02-24 19:44 | XMS_ITS | Encounter Summary ---
Author Organization [facility] Address [address] [place] [address] Phone Care Team Providers Care Compactor Driver Name Role Phone Gayla Barker APRN, HOGSHEAD HEAD MATCHER Primary Care Provider Ct, Acute Covid At Home Care Unavailable Marianela vailable Reason for Visit * Reason Onset Date Comments Letter for School/Work 03/10/2020 Encounter Details Date Type Department Care Team (Late st Contact Info) Description 03/10/2020 [facility] - [place] [address] [place] [address] Brian Mon MD [address] [place] [address] Letter for School/Work Social History Tobacco Use Types Packs/Day Years [...] file Legal Sex Female 10:27 AM WEIGHT CONTROL 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 No / Unsure 03/10/2020 8:02 AM WEIGHT CONTROL ENGINEER documented as of this encounter Miscellaneous Notes * Telephone Encounter - Leti Gusman RN - 03/11/2020 10:42 AM WEIGHT CONTROL ENGINEER My Chart message was sent and x-ray information was relayed to patient in other encounter. HT CONTROL ENGINEER * Telephone Encounter - Leti Gusman RN - 03/10/2020 1:55 PM WEIGHT CONTROL ENGINEER Phoned patient, no answer. Voicemail left to call the office. When she calls back inform of x-ray results of 03/10/20 telephone encounter also. HT CONTROL ENGINEER * Telephone Encounter - Brian Mon MD - 03/10/2020 12:31 PM WEIGHT CONTROL ENGINEER Letter approved. HT CONTROL ENGINEER * Telephone Encounter - Leti Gusman RN - 03/10/2020 12:01 PM WEIGHT CONTROL ENGINEER Patient requesting letter for work that she was seen in office today. Letter pended. HT CONTROL ENGINEER documented in this encounter Plan of Treatment Not on file documented as of this encounter Visit Diagnoses Not on filedocumented in this encounter Additional Health Concerns Assessment Noted Time PHQ-9 Depression Total Score: 0 03/25/19 20 10:00 AM WEIGHT CONTROL ENGINEER documented as of this encounter Care Teams Compactor Driver Relationship Specialty Start Date End Date Gayla Barker, LINUX SOLARIS ADMINISTRATOR, HOGSHEAD HEAD MATCHER [address] [place] [address] PCP - General Advanced Practice Nurse 03/25/19 Ct, [facility] [place] 09/03/19 documented as of this encounter
--- OUTSIDE RECORDS SUMMARY | 2024-02-24 19:44 | XMS_ITS | Encounter Summary ---
Author Organization [facility] Address [address] [place] [address] Phone Care Team Providers Care Tack Welder Name Role Phone Gayla Barker APRN, HARSHA Primary Care Provider Ct, Acute Covid At Home Care Unavailable Marianela vailable Encounter Details Date Type Department Care Team (Late st Contact Info) Description 04/06/2020 Telephone [facility] - Primary Care - [place] [address] [place] [address] Gayla Barker, ANNIE, FITTING ROOM INSPECTOR [address] [place] [address] Social History Tobacco Use Types Packs/Day Years [...] on file Legal Sex Female 10:27 AM SUPERVISOR ELECTRONIC COILS Gender Identity Not on file Sexual Orientation Not on file COVID-19 Exposure Response Date Recorded In the last month, have you been in contact with someone who was confirmed or suspected to have Coronavirus / COVID-19? No / Unsure 03/30/2020 3:36 PM SUPERVISOR ELECTRONIC COILS documented as of this encounter Miscellaneous Notes * Telephone Encounter - Dimple Junior RMA - 04/06/2020 9:16 AM CST Called patient to see if she wanted to keep todays appt or tomorrows. Pt states she is dizzy and has a headache, she wanted to know if Gayla can do anything for her. Spoke with Gayla and she states she could probably give her something for dizziness or she could refer her to Neurology. Lmom for pt to call back. RVISOR ELECTRONIC COILS documented in this encounter Plan of Treatment Not on file documented as of this encounter Visit Diagnoses Not on filedocumented in this encounter Additional Health Concerns Assessment Noted Time PHQ-9 Depression Total Score: 0 03/25/19 20 10:00 AM SUPERVISOR ELECTRONIC COILS documented as of this encounter Care Teams Tack Welder Relationship Specialty Start Date End Date Gayla Barker, WELDING PANTOGRAPH MACHINE OPERATOR, FITTING ROOM INSPECTOR [address] [place] [address] PCP - General Advanced Practice Nurse 03/25/19 Ct, [facility] [place] 09/03/19 documented as of this encounter
--- OUTSIDE RECORDS SUMMARY | 2024-02-24 19:44 | XMS_ITS | Encounter Summary ---
Author Organization [facility] Address [address] [place] [address] Phone Care Team Providers Care Rental Coordinator Name Role Phone Gayla Barker APRN, USED CAR LOT ATTENDANT Primary Care Provider Ct, Acute Covid At Home Care Unavailable Marianela vailable Encounter Details Date Type Department Care Team (Latest Contact Info) Description 10/29/2020 [facility] [address] [place] [id number] Provider, Not On File [place] Lupoid nephritis (HCC) (Primary Dx) Social History Tobacco Use Types [...] on file Legal Sex Female 10:27 AM SPECIAL ASSETS OFFICER Gender Identity Not on file Sexual Orientation Not on file COVID-19 Exposure Response Date Recorded In the last month, have you been in contact with someone who was confirmed or suspected to have Coronavirus / COVID-19? No / Unsure 10/06/2020 12:42 PM CDT documented as of this encounter Plan of Treatment Not on file documented as of this encounter Visit Diagnoses 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 documented in this encounter Additional Health Concerns Assessment Noted Time PHQ-9 Depression Total Score: 0 03/25/19 20 10:00 AM SPECIAL ASSETS OFFICER documented as of this encounter Care Teams Rental Coordinator Relationship Specialty Start Date End Date Gayla Barker, INDUSTRIAL SALES ENGINEER, USED CAR LOT ATTENDANT [address] [place] [address] PCP - General Advanced Practice Nurse 03/25/19 Ct, [facility] [place] 09/03/19 documented as of this encounter
--- OUTSIDE RECORDS SUMMARY | 2024-02-24 19:44 | XMS_ITS | Encounter Summary ---
Author Organization [facility] Address [address] [place] [address] Phone Care Team Providers Care Manager Wellness Name Role Phone Gayla Barker APRN, DIAMOND SORTER Primary Care Provider Ct, Acute Covid At Home Care Unavailable Marianela vailable Reason for Visit * Reason Onset Date Comments COVID-19 01/19/2020 Encounter Details Date Type Department Care Team (Late st Contact Info) Description 01/19/2020 Telephone [facility] - Primary Care - [place] [address] [place] [address] Gilmar De Paz PAC COVID-19 Social History Tobacco Use Types Packs/Day Years Used Date Smoking Tobacco: Some Days Smokeless Tobacco: Never Comments:only when drink Alcohol [...] on file Legal Sex Female 10:27 AM SUPERINTENDENT MECHANICAL Gender Identity Not on file Sexual Orientation Not on file COVID-19 Exposure Response Date Recorded In the last month, have you been in contact with someone who was confirmed or suspected to have Coronavirus / COVID-19? Yes 01/16/2020 10:58 AM SUPERINTENDENT MECHANICAL documented as of this encounter Miscellaneous Notes * Telephone Encounter - Leti Gusman RN - 01/19/2020 11:18 AM SUPERINTENDENT MECHANICAL My Chart message sent to patient. RINTENDENT MECHANICAL * Telephone Encounter - Leti Gusman RN - 01/19/2020 11:17 AM SUPERINTENDENT MECHANICAL ----- Message from CARIDAD Arango sent at 01/19/2020 9:50 AM SUPERINTENDENT MECHANICAL ----- Please call patient to let them know that results of COVID testing are negative. COVID not detected. RINTENDENT MECHANICAL documented in this encounter Plan of Treatment Not on file documented as of this encounter Visit Diagnoses Not on filedocumented in this encounter Additional Health Concerns Infection Onset Date Last Indicated Resolved Time COVID - 19 01/16/2020 01/17/2020 01/23/2020 12:5 2 PM SUPERINTENDENT MECHANICAL Assessment Noted Time PHQ-9 Depression Total Score: 0 03/25/19 10:00 AM SUPERINTENDENT MECHANICAL documented as of this encounter Care Teams Manager Wellness Relationship Specialty Start Date End Date Gayla Barker, RANCH HAND SUPERVISOR, DIAMOND SORTER [address] [place] [address] PCP - General Advanced Practice Nurse 03/25/19 Ct, [facility] [place] 09/03/19 documented as of this encounter
--- OUTSIDE RECORDS SUMMARY | 2024-02-24 19:44 | XMS_ITS | Encounter Summary ---
Author Organization [facility] Address [address] [place] [address] Phone Care Team Providers Care Cash Applications Associate Name Role Phone Gayla Barker APRN, CNP Primary Care Provider Ct, Acute Covid At Home Care Unavailable Marianela vailable Reason for Visit * Reason Onset Date Comments Letter for School/Work 08/16/2020 Encounter Details Date Type Department Care Team (Late st Contact Info) Description [facility]/16/2020 [facility] - [place] [address] [place] [address] Gayla Barker APRN SUMMER LAW CLERK [address] [place] [address] Letter for School/Work Social History [...] occupational, technical, or vocational program 11/12/2019 Comments Yes Sex and Gender Information Value Date Recorded Sex Assigned at Not on file Legal Sex Female 10:27 AM MONUMENT LETTERER Gender Identity Not on file Sexual Orientation Not on file documented as of this encounter Miscellaneous Notes * Telephone Encounter - Dimple Junior RMA - 08/16/2020 9:55 AM CDT Pt having problems with vomiting, pt is 16 weeks and obgyn gave her Zofran. Pt is requesting note for work. Per Gayla dave to give pt note. documented in this encounter Plan of Treatment Not on file documented as of this encounter Visit Diagnoses Not on filedocumented in this encounter Additional Health Concerns Assessment Noted Time PHQ-9 Depression Total Score: 0 03/25/19 10:00 AM MONUMENT LETTERER documented as of this encounter Care Teams Cash Applications Associate Relationship Specialty Start Date End Date Gayla Barker, E LEARNING DESIGNER, SUMMER LAW CLERK [address] [place] [address] PCP - General Advanced Practice Nurse 03/25/19 Ct, [facility] [place] 09/03/19 documented as of this encounter
--- OUTSIDE RECORDS SUMMARY | 2024-02-24 19:44 | XMS_ITS | Encounter Summary ---
Author Organization [facility] Address [address] [place] [address] Phone Care Team Providers Care Livestock Feeder Name Role Phone Gayla Barker APRN, FOLDER TAPER OPERATOR Primary Care Provider Ct, Acute Covid At Home Care Unavailable Marianela vailable Encounter Details Date Type Department Care Team (Latest Contact Info) Description 08/09/2020 [facility] [address] [place] [address] Provider, Not On File [place] Flank pain (Primary Dx) Social History Tobacco Use Types [...] on file Legal Sex Female 10:27 AM COMPUTATOR Gender Identity Not on file Sexual Orientation Not on file COVID-19 Exposure Response Date Recorded In the last month, have you been in contact with someone who was confirmed or suspected to have Coronavirus / COVID-19? No / Unsure 07/11/2020 10:08 AM CDT documented as of this encounter Plan of Treatment Not on file documented as of this encounter Visit Diagnoses Diagnosis Flank pain- Primary Abdominal pain, unspecified site documented in this encounter Additional Health Concerns Assessment Noted Time PHQ-9 Depression Total Score: 0 03/25/19 10:00 AM COMPUTATOR documented as of this encounter Care Teams Livestock Feeder Relationship Specialty Start Date End Date Gayla Barker, AUTOCAD OPERATOR, FOLDER TAPER OPERATOR [address] [place] [address] PCP - General Advanced Practice Nurse 03/25/19 Ct, Acute [facility] [place] 09/03/19 documented as of this encounter
--- OUTSIDE RECORDS SUMMARY | 2024-02-24 19:44 | XMS_ITS | Encounter Summary ---
Author Organization [facility] Address [address] [place] [address] Phone Care Team Providers Care Review Engineer Name Role Phone Gayla Barker APRN, BICYCLE DESIGNER Primary Care Provider Ct, Acute Cov[facility] Home Care Unavailable Marianela vailable Encounter Details Date Type Department Care Team (Late st Contact Info) Description 01/16/2020 Telephone [facility] - Primary Care - [place] [address] [place] [address] Gilmar De Paz, CARIDAD Social History Tobacco Use Types Packs/Day Years [...] on file Legal Sex Female 10:27 AM DIRECT CHILL CASTING OPERATOR Gender Identity Not on file Sexual Orientation Not on file COVID-19 Exposure Response Date Recorded In the last month, have you been in contact with someone who was confirmed or suspected to have Coronavirus / COVID-19? Yes 01/16/2020 10:58 AM DIRECT CHILL CASTING OPERATOR documented as of this encounter Miscellaneous Notes * Telephone Encounter - Gilmar De Paz PAC - 01/16/2020 2:43 PM DIRECT CHILL CASTING OPERATOR covid PCR ordered. CT CHILL CASTING OPERATOR * Telephone Encounter - Shaye Ramos CMA - 01/16/2020 2:29 PM DIRECT CHILL CASTING OPERATOR Called pt to discuss symptoms and schedule drive up swab. Pt states she has all the symptoms whenasked what they were she says she has diarrhea, headache, cough. Advised her we stop swabbing at 4 pm and asked if she could come today at 3:50. Pt states her boss won't let her leave work early. Drive up test scheduled for tomorrow morning. CT CHILL CASTING OPERATOR documented in this encounter Plan of Treatment Not on file documented as of this encounter Results * SARS-COV-2 BY MOLECULAR (01/17/2020 8:02 AM DIRECT CHILL CASTING OPERATOR) SARSCOV2 NOT DETECTED (Referenc e Range for this test is Not Detected) [facility] THERMOFISHER FAST DX 01/18/2020 9:34 PM DIRECT CHILL CASTING OPERATOR [facility] Swab NASOPHARYNGEAL STRUCTURE / Unknown Non-Phlebotomy Collection / Unknown 01/17/2020 8:02 AM DIRECT CHILL CASTING OPERATOR 01/17/2020 8:02 AM DIRECT CHILL CASTING OPERATOR Narrative [facility] - 01/18/2020 9:34 PM DIRECT CHILL CASTING OPERATOR Authorized Fact Sheets about this test for providers and patients are available at: https://www.fda.gov/medical-devices/zuohkwyzz-qkejvfsrpx-ulqqnbn-devices/emergen cy-us e-authorizations us Gilmar De Paz PAC MICROBIOLOGY - GENERAL O RDERABLES Final Result [facility] [address] [place] [address], [place] documented in this encounter Visit Diagnoses Diagnosis Cough- Primary Diarrhea, unspecified type documented in this encounter Additional Health Concerns Infection Onset Date Last Indicated Resolved Time COVID - 19 01/16/2020 01/17/2020 01/23/2020 12:5 2 PM DIRECT CHILL CASTING OPERATOR Assessment Noted Time PHQ-9 Depression Total Score: 0 03/25/19 10:00 AM DIRECT CHILL CASTING OPERATOR documented as of this encounter Care Teams Review Engineer Relationship Specialty Start Date End Date Gayla Barker, COMPENSATION/BENEFITS SPECIALIST, BICYCLE DESIGNER [address] [place] [address] PCP - General Advanced Practice Nurse 03/25/19 Ct, [facility] [place] Digital [place]KHI 09/03/19 documented as of this encounter
--- OUTSIDE RECORDS SUMMARY | 2024-02-24 19:44 | XMS_ITS | Encounter Summary ---
Author Organization [facility] Address [address] [place] [address] Phone Care Team Providers Care Baseball Umpire For Little League Name Role Phone Gayla Barker APRN, HARSHA Primary Care Provider Ct, Acute Covid At Home Care Unavailable Marianela vailable Reason for Visit * Reason Comments Ear Pain bilateral Encounter Details Date Type Department Care Team (Late st Contact Info) Description 02/03/2020 1:45 PM GROUP SALES MANAGER Telemedicine [facility] - Primary Care - [place] [address] [place] [address] Gayla Barker APRN, ELECTRONIC OPERATOR [address] [place] [address] Non-recurrent acute serous otitis media of both ears (Primary Dx) Social History Tobacco Use Types [...] on file Legal Sex Female 10:27 AM GROUP SALES 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 No / Unsure 02/03/2020 12:59 PM GROUP SALES MANAGER documented as of this encounter Last Filed Vital Signs Vital Sign Reading Time Taken Comments Blood Pressure - - Pulse - - Temperature - - Respiratory Rate - - Oxygen Saturation - - Inhaled Oxygen Concentration - - Weight - - Height 160 cm (5' 3 ) 02/03/2020 1:54 PM GROUP SALES MANAGER Body Mass Index - - documented in this encounter Patient Instructions * Patient Instructions* Gayla Barker APN, CNP - 02/03/2020 1:45 PM GROUP SALES MANAGER Massage behind ears. Take antihistamine of choice. Follow-up if not resolving. P SALES MANAGER documented in this encounter Progress Notes * Dimple Junior RMA - 02/03/2020 1:45 PM CST Carito Rausch is on telephone visit for Ear Pain (bilateral) . Medications and allergies reconciled with Carito Rausch. P SALES MANAGER * Gayla Barker APN, CNP - 02/03/2020 1:45 PM CST Patient was assessed via video for a duration of 12 minutes. Patient verbally consented for this service to be performed and billed. HPI: Carito Rausch is a 29 y.o. female evaluated today for ear fullness/hearing issues. Current Outpatient Medications: ??? albuterol (ProAir HFA) 108 (90 Base) MCG/ACT Aerosol Solution ??? ALPRAZolam (XANAX) 0.5 MG Tablet ??? Belimumab (Benlysta) 200 MG/ML Solution Auto-injector ??? diclofenac sodium (VOLTAREN) 1 % Gel ??? ferrous sulfate 325 (65 Fe) MG Tablet ??? hydroxychloroquine (PLAQUENIL) 200 MG Tablet ??? ipratropium (ATROVENT) 0.03 % Solution ??? meclizine (ANTIVERT) 25 MG Tablet ??? OMEPRAZOLE PO ??? ondansetron (Zofran) 4 MG Tablet ??? predniSONE (DELTASONE) 1 MG Tablet ??? predniSONE (DELTASONE) 5 MG Tablet The past medical, surgical, family and social histories, and allergies were reviewed and updated asneeded. ROS: As noted in the HPI with the following additional findings: [facility] an [facility] infection is resolved but has fluid behind eardrum. Finished Z-Maximilian yesterday. Plan: ICD-10-CM 1. Non-recurrent acute serous otitis media of both ears H65.03 Massage behind ears. Take antihistamine of choice. Follow-up if not resolving. Follow Up: Carito was asked to follow up with Gayla Barker APN, CNP in 6 month(s). Education materials sent via the patient's [employer] account. P SALES MANAGER documented in this encounter Plan of Treatment Not on file documented as of this encounter Visit Diagnoses Diagnosis Non-recurrent acute serous otitis media of both ears- Primary documented in this encounter Additional Health Concerns Assessment Noted Time PHQ-9 Depression Total Score: 0 03/25/19 20 10:00 AM GROUP SALES MANAGER documented as of this encounter Care Teams Baseball Umpire For Little League Relationship Specialty Start Date End Date Gayla Barker APRN, CNP [address] [place] [address] PCP - General Advanced Practice Nurse 03/25/19 Ct, [facility] Cov[facility] Home Care [place] [facility] [place] 09/03/19 documented as of this encounter
--- OUTSIDE RECORDS SUMMARY | 2024-02-24 19:44 | XMS_ITS | Encounter Summary ---
Author Organization [facility] Address [address] [facility] [address] Phone Care Team Providers Care Manager Wholesale Name Role Phone Gayla Barker APRN, PETROLEUM REFINING EQUIPMENT OPERATOR Primary Care Provider Ct, Acute Covid At Home Care Unavailable Marianela vailable Reason for Visit * Reason Onset Date Comments Appointment 04/20/2020 Encounter Details Date Type Department Care Team (Late st Contact Info) Description 04/20/[address] [facility] [address] [place] [address] Gayla Barker, ANNIE, PETROLEUM REFINING EQUIPMENT OPERATOR [address] [place] [address] Appointment Social History Tobacco Use Types Packs/Day [...] on file Legal Sex Female 10:27 AM COMPUTER REPAIR 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 No / Unsure 04/07/2020 8:36 AM COMPUTER REPAIR ENGINEER documented as of this encounter Miscellaneous Notes * Telephone Encounter - Carol Browning RN - 04/20/2020 8:51 AM CST Error UTER REPAIR ENGINEER documented in this encounter Plan of Treatment Not on file documented as of this encounter Visit Diagnoses Not on filedocumented in this encounter Additional Health Concerns Assessment Noted Time PHQ-9 Depression Total Score: 0 03/25/19 10:00 AM COMPUTER REPAIR ENGINEER documented as of this encounter Care Teams Manager Wholesale Relationship Specialty Start Date End Date Gayla Barker, SEQUENCING MACHINE OPERATOR, PETROLEUM REFINING EQUIPMENT OPERATOR [address] [place] [address] PCP - General Advanced Practice Nurse 03/25/19 Ct, [facility] [place] 09/03/19 documented as of this encounter
--- OUTSIDE RECORDS SUMMARY | 2024-02-24 19:44 | XMS_ITS | Encounter Summary ---
Author Organization [employer] Care Team Providers Care Financial Institution President Name Role Phone Gayla Barker ASSOCIATE VICE PRESIDENT, COMMUNICATIONS SYSTEMS ENGINEER Primary Care Provider Ct, Acute Covid At Home Care Unavailable Marianela vailable Encounter Details Date Type Department Care Team (Latest Contact Info) Description 10/06/2020 Travel Social History Tobacco Use Types Packs/Day [...] on file Legal Sex Female 10:27 AM TRAILHEAD MAINTENANCE WORKER Gender Identity Not on file Sexual Orientation [...] Total Score: 0 03/25/19 20 10:00 AM TRAILHEAD MAINTENANCE WORKER documented as of this encounter Care Teams Financial Institution President Relationship Specialty Start Date End Date Gayla Barker, ASSOCIATE VICE PRESIDENT, COMMUNICATIONS SYSTEMS ENGINEER [address] [place] [address] PCP - General Advanced Practice Nurse 03/25/19 Ct, [facility] [place] 09/03/19 documented as of this encounter
--- OUTSIDE RECORDS SUMMARY | 2024-02-24 19:44 | XMS_ITS | Encounter Summary ---
Author Organization [employer] Care Team Providers Care Grinder Brake Lining Name Role Phone Gayla Barker SALON RECEPTIONIST, EMBOSSING TOOL SETTER Primary Care Provider Ct, Acute Covid At Home Care Unavailable Marianela vailable Encounter Details Date Type Department Care Team (Latest Contact Info) Description 03/18/2020 Travel Social History Tobacco Use Types Packs/Day [...] on file Legal Sex Female 10:27 AM BIOCHEMIST Gender Identity Not on file Sexual Orientation Not on file COVID-19 Exposure Response Date Recorded In the last month, have you been in contact with someone who was confirmed or suspected to have Coronavirus / COVID-19? Yes 03/18/2020 4:51 PM BIOCHEMIST documented as of this encounter Plan of Treatment Not on file documented as of this encounter Visit Diagnoses Not on filedocumented in this encounter Additional Health Concerns Infection Onset Date Last Indicated Resolved Time COVID - 19 03/18/2020 03/18/2020 03/19/2020 6:44 AM BIOCHEMIST Assessment Noted Time PHQ-9 Depression Total Score: 0 03/25/19 10:00 AM BIOCHEMIST documented as of this encounter Care Teams Grinder Brake Lining Relationship Specialty Start Date End Date Gayla Barker, SALON RECEPTIONIST, EMBOSSING TOOL SETTER [address] [place] [address] PCP - General Advanced Practice Nurse 03/25/19 Ct, [place] [facility] [place] 09/03/19 documented as of this encounter
--- OUTSIDE RECORDS SUMMARY | 2024-02-24 19:44 | XMS_ITS | Encounter Summary ---
Author Organization [facility] Address [address] [place] [address] Phone Care Team Providers Care Clinical Counselor Name Role Phone Gayla Barker APRN, DRY MOP MAKER Primary Care Provider Ct, Acute Covid At Home Care Unavailable Marianela vailable Reason for Visit * Reason Comments Ear Pain Encounter Details Date Type Department Care Team (Late st Contact Info) Description 03/10/2020 8:15 AM TAKE DOWN INSPECTOR Office Visit [facility] - Primary Care - [place] [address] [place] [id number] Brian Mon MD [address] [place], [place] [id number] Mastoiditis of left side (Primary Dx) Discharge Disposition: Discharged to home [...] on file Legal Sex Female 10:27 AM TAKE DOWN INSPECTOR Gender Identity Not on file Sexual Orientation Not on file COVID-19 Exposure Response Date Recorded In the last month, have you been in contact with someone who was confirmed or suspected to have Coronavirus / COVID-19? No / Unsure 03/10/2020 8:02 AM TAKE DOWN INSPECTOR documented as of this encounter Last Filed Vital Signs Vital Sign Reading Time Taken Comments Blood Pressure 114/80 03/10/2020 8:10 AM TAKE DOWN INSPECTOR Pulse 78 03/10/2020 8:10 AM TAKE DOWN INSPECTOR Temperature 36.8 ??C (98.2 ??F) 03/10/2020 8:10 AM CS T Respiratory Rate 18 03/10/2020 8:10 AM TAKE DOWN INSPECTOR Oxygen Saturation 98% 03/10/2020 8:10 AM TAKE DOWN INSPECTOR Inhaled Oxygen Concentration - - Weight 80.3 kg (177 lb) 03/10/2020 8:10 AM TAKE DOWN INSPECTOR Height 160 cm (5' 3 ) 03/10/2020 8:10 AM TAKE DOWN INSPECTOR Body Mass Index 31.35 03/10/2020 8:10 AM TAKE DOWN INSPECTOR documented in this encounter Progress Notes * Irene Candelario, RMA - 03/10/2020 8:15 AM CST Carito Rausch, 29 y.o., female is here for Ear Pain Medication Refills: Patient reports/denies need for medication refills. Orders Pended: yes Requested Prescriptions Pending Prescriptions Disp Refills ??? meclizine (ANTIVERT) 25 MG Tablet 30 Tab Sig: Take 1 Tab by mouth. Home Medications Medication Sig Start Date End Date Taking? Authorizing Provider albuterol (ProAir HFA) 108 (90 Base) MCG/ACT Aerosol Solution take 2 Puffs by inhalation every 4 hours as needed for Wheezing or Cough. 12/28/19 Chitra Kaur APN, DRY MOP MAKER ALPRAZolam (XANAX) 0.5 MG Tablet Take 1 Tab by mouth 2 times daily as needed for Anxiety. 11/14/19 Yes Gayla Barker QUARRY EQUIPMENT OPERATOR, DRY MOP MAKER Belimumab (Benlysta) 200 MG/ML Solution Auto-injector 11/04/19 Yes Provider, MD Isis diclofenac sodium (VOLTAREN) 1 % Gel APPLY [...] SPRAY IN EACH NOSTRIL TWICE DAILY 01/28/20 Isis Sheffield MD meclizine (ANTIVERT) 25 MG Tablet Take 25 mg by mouth. 02/03/20 02/02/21 Isis Sheffield MD OMEPRAZOLE PO Take 20 mg by mouth. Yes Emergency, Nurse, RN ondansetron (Zofran) 4 MG Tablet Take 4 mg by mouth every 8 hours as needed for Nausea - 1st line. Isis Sheffield MD predniSONE (DELTASONE) 1 MG Tablet Take 1 Tab by mouth daily. Patient not taking: Reported on 01/31/2020 09/05/19 Gayla Barker APN, CNP predniSONE (DELTASONE) 5 MG Tablet Take 10 mg by mouth. 11/11/19 11/10/20 Yes Isis Sheffield MD There are no discontinued medications. I have reviewed the home medication list with the patient and have reconciled discrepancies. The list is accurate to the best of my knowledge. Smoking Status: Social History Tobacco Use ??? Smoking status: Former Smoker ??? Smokeless tobacco: Never Used ??? Tobacco comment: only when drink Substance Use Topics ??? Alcohol use: Yes Frequency: Monthly or less Comment: occasionally ??? Drug use: Yes Types: Marijuana, Cocaine Smoking Cessation Counseling Given: n/a Health Care Maintenance: Health Maintenance Due Topic Date Due ??? Pneumococcal Immunization (0-64 years) (1 of 1 - PPSV23) 1998 ??? DTaP/Tdap/Td Immunization (2 - Td) 12/29/2018 ??? Influenza Immunization (1) 10/28/2019 Orders Pended: n/a The following BPA's have been addressed with the patient today: Flu DOWN INSPECTOR * Brian Mon MD - 03/10/2020 8:15 AM CST Subjective: HPI Patient presents with complaint of ???an ear infection that has been present for 2 months?? . She states that she was originally told she had an ear infection and was prescribed 2 rounds of antibiotics. One involved penicillin, to which she developed a rash. I cannot find the original encounter where she was diagnosed but she did have a subsequent prompt Care visit with [facility] in early January where she was told that she had serous otitis media. She now reports that the pain is only onthe left side. During much of this time she has also been experiencing some issues with intermittent vertigo and has been taking meclizine for same. A referral to ENT was placed but she has not followed through with this as of yet. Review of Systems Constitutional: Negative. HENT: Positive for ear pain (Posterior left). Eyes: Negative. Respiratory: Negative. Cardiovascular: Negative. Gastrointestinal: Negative. Endocrine: Negative. Genitourinary: Negative. Musculoskeletal: Negative. Skin: Negative. Allergic/Immunologic: Negative. Neurological: Positive for dizziness. Hematological: Negative. Psychiatric/Behavioral: Negative. Objective: Physical Exam Constitutional: Appearance: She is well-developed. HENT: Head: Normocephalic and atraumatic. Right Ear: Tympanic membrane, ear canal and external ear normal. No tenderness. Tympanic membrane is not injected or bulging. Left Ear: Ear canal normal. No tenderness. There is mastoid tenderness. Tympanic membrane is bulging (slight). Tympanic membrane is not injected. Ears: Comments: Minimal soft cerumen present in both external auditory canals. Nose: Nose normal. No rhinorrhea. Eyes: General: Lids are normal. Right eye: No discharge. Left eye: No discharge. Conjunctiva/sclera: Conjunctivae normal. Pupils: Pupils are equal, round, and reactive to light. Neck: Musculoskeletal: Normal range of motion and neck supple. Thyroid: No thyroid mass. Trachea: Trachea normal. Cardiovascular: Rate and Rhythm: Normal rate and regular rhythm. Heart sounds: Normal heart sounds. No murmur. No friction rub. No gallop. Pulmonary: Effort: Pulmonary effort is normal. No respiratory distress. Breath sounds: Normal breath sounds. No wheezing or rales. Chest: Chest wall: No tenderness. Lymphadenopathy: Cervical: No cervical adenopathy. Skin: General: Skin is warm and dry. Findings: No rash. Psychiatric: Behavior: Behavior normal. Thought Content: Thought content normal. Judgment: Judgment normal. Assessment and Plan See Diagnoses, Orders, Follow-up, and Instructions X-ray skull with attention to the left mastoid. Clindamycin prescribed for 10 days. Meclizine refilled. I have strongly urged her to follow through with the ENT referral, as I am not certain that this is actually mastoiditis. If she has persistent symptoms, it might be worthwhile to do a CT scan toevaluate the mastoid process more closely. I have seen and examined the patient on today's date. Documentation for this visit was completed using the assistance of a template. Everything documented in this visit was personally performed todaywith the necessary additions, deletions and changes. DOWN INSPECTOR * Leti Gusman RN - 03/10/2020 8:15 AM CST Patient phoned back wanting a different antibiotic with a shorter course than 10 days because she has a chemo treatment on day 10. Per Dr. Mon, this is the antibiotic she needs. Patient concerned about chemo treatments and was advised to reach out to oncology with concerns. Patient verbalized understanding. DOWN INSPECTOR documented in this encounter Plan of Treatment Not on file documented as of this encounter Results * XR SKULL, COMPLETE (03/10/2020 8:51 AM TAKE DOWN INSPECTOR) Anatomical Region Laterality Modality Head, Skull N/A Digital Radiogra phy 03/10/2020 10:4 5 AM TAKE DOWN INSPECTOR Impressions 03/10/2020 10:48 AM TAKE DOWN INSPECTOR IMPRESSION: ??No radiographic evidence sinusitis. Narrative 03/10/2020 10:48 AM TAKE DOWN INSPECTOR EXAM DESCRIPTION: ?? XR SKULL, COMPLETE REASON FOR STUDY: ?? Unspecified mastoiditis, left ear Bilateral ear infection Duration = 3 months TECHNIQUE: ?? AP and lateral views of the skull. COMPARISON: ?? None FINDINGS: ??SKULL: ??No fracture or destructive lesion. ORBITS: ??No fracture. ??No foreign body. SINUSES: ??No mucosal thickening. ??No air fluid levels. ??Please note, radiograph is limited evaluation of the sinuses. OTHER: ??No other significant finding. THIS IS AN ELECTRONICALLY VERIFIED FINAL REPORT 03/10/2020 10:45 AM - Electronically signed by Mali Ireland BG: BG D: ??03/10/2020 10:45 AM T: ??03/10/2020 10:45 AM Report ID: [id number] Reading Location: ??[id number] Procedure Note Mali Ireland MD - 03/10/2020 EXAM DESCRIPTION: XR SKULL, COMPLETE REASON FOR STUDY: Unspecified mastoiditis, left ear Bilateral ear infection Duration = 3 months TECHNIQUE: AP and lateral views of the skull. COMPARISON: None FINDINGS: SKULL: No fracture or destructive lesion. ORBITS: No fracture. No foreign body. SINUSES: No mucosal thickening. No air fluid levels. Please note, radiograph is limited evaluation of the sinuses. OTHER: No other significant finding. THIS IS AN ELECTRONICALLY VERIFIED FINAL REPORT 03/10/2020 10:45 AM - Electronically signed by Mali Ireland BG: BG Report ID: [id number] Reading Location: [id number] IMPRESSION: No radiographic evidence sinusitis. us Brian Mon MD IMG DIAGNOSTIC ORDERABLES Final Result documented in this encounter Visit Diagnoses Diagnosis Mastoiditis of left side- Primary Unspecified mastoiditis Mastoiditis of left side Unspecified mastoiditis documented in this encounter Additional Health Concerns Assessment Noted Time PHQ-9 Depression Total Score: 0 03/25/19 10:00 AM TAKE DOWN INSPECTOR documented as of this encounter Care Teams Clinical Counselor Relationship Specialty Start Date End Date Gayla Barker, GROUNDS CARETAKER, DRY MOP MAKER [address] [place] [address] PCP - General Advanced Practice Nurse 03/25/19 Ct, [facility] [place] 09/03/19 documented as of this encounter
--- OUTSIDE RECORDS SUMMARY | 2024-02-24 19:44 | XMS_ITS | Encounter Summary ---
Author Organization [facility] Address [address] [place] [address] Phone Care Team Providers Care Rug Inspector Helper Name Role Phone Gayla Barker APRN, PUNCH OUT CREW MEMBER Primary Care Provider Ct, Acute Covid At Home Care Unavailable Marianela vailable Encounter Details Date Type Department Care Team (Late st Contact Info) Description 05/04/2020 Transcribe Orders [facility] Admitting [address] [place] [address] Provider, Not On File [place] Social History Tobacco Use Types Packs/Day Years [...] on file Legal Sex Female 10:27 AM DRY END TESTER Gender Identity Not on file Sexual Orientation Not on file COVID-19 Exposure Response Date Recorded In the last month, have you been in contact with someone who was confirmed or suspected to have Coronavirus / COVID-19? No / Unsure 04/07/2020 8:36 AM DRY END TESTER documented as of this encounter Plan of Treatment Not on file documented as of this encounter Visit Diagnoses Not on filedocumented in this encounter Additional Health Concerns Assessment Noted Time PHQ-9 Depression Total Score: 0 03/25/19 10:00 AM DRY END TESTER documented as of this encounter Care Teams Rug Inspector Helper Relationship Specialty Start Date End Date Gayla Barker, PRESS OPERATOR [employer], PUNCH OUT CREW MEMBER [address] [place] [address] PCP - General Advanced Practice Nurse 03/25/19 Ct, [facility] [place] 09/03/19 documented as of this encounter
--- OUTSIDE RECORDS SUMMARY | 2024-02-24 19:44 | XMS_ITS | Encounter Summary ---
Author Organization [facility] Address [address] [place] [address] Phone Care Team Providers Care Manager Spanish Name Role Phone Gayla Barker APRN, CORRECTIONAL CLASSIFICATION COUNSELOR Primary Care Provider Ct, Acute [facility] Home [facility] Unavailable Marianela vailable Encounter Details Date Type Department Care Team (Latest Contact Info) Description 07/19/2020 [facility] [address] [place] [address] Provider, Not On File [place] Supervision of high risk , antepartum (Primary Dx); UTI symptoms Social History Tobacco Use Types Packs/Day Years [...] on file Legal Sex Female 10:27 AM ROTARY DRILLER Gender Identity Not on file Sexual Orientation Not on file COVID-19 Exposure Response Date Recorded In the last month, have you been in contact with someone who was confirmed or suspected to have Coronavirus / COVID-19? No / Unsure 07/11/2020 10:08 AM CDT documented as of this encounter Plan of Treatment Not on file documented as of this encounter Visit Diagnoses Diagnosis Supervision of high risk , antepartum- Primary UTI symptoms documented in this encounter Additional Health Concerns Assessment Noted Time PHQ-9 Depression Total Score: 0 03/25/19 10:00 AM ROTARY DRILLER documented as of this encounter Care Teams Manager Spanish Relationship Specialty Start Date End Date Gayla Barker, STOCK REPLENISHER, CORRECTIONAL CLASSIFICATION COUNSELOR [address] [place] [address] PCP - General Advanced Practice Nurse 03/25/19 Ct, [facility] [place] Digital MEKHI 09/03/19 documented as of this encounter
--- OUTSIDE RECORDS SUMMARY | 2024-02-24 19:44 | XMS_ITS | Encounter Summary ---
Author Organization [facility] Address [address] [place] [address] Phone Care Team Providers Care Cane Flume Chute Operator Name Role Phone Gayla Barker APRN, OFFICE SERVICE COORDINATOR Primary Care Provider Ct, Acute Covid At Home Care Unavailable Marianela vailable Encounter Details Date Type Department Care Team (Latest Contact Info) Description 03/10/2020 8:33 AM MACHINE HELPER - 03/10/2020 11:59 PM MACHINE HELPER [facility] [place] [address] [place] [address] Brian Mon MD [address] [place], [place] [id number] Discharge Disposition: Discharged to home or Selfcare [...] on file Legal Sex Female 10:27 AM MACHINE HELPER Gender Identity Not on file Sexual Orientation Not on file COVID-19 Exposure Response Date Recorded In the last month, have you been in contact with someone who was confirmed or suspected to have Coronavirus / COVID-19? No / Unsure 03/10/2020 8:02 AM MACHINE HELPER documented as of this encounter Medications at [...] times daily as needed for Anxiety. 60 Tab 1 11/14/2019 1 Belimumab (Benlysta) 200 MG/ML Solution Auto-injector 11/04/2019 1 Clindamycin HCl (CLEOCIN) 300 MG Capsule Take 1 Cap by mouth every 8 hours for 10 days. 30 Cap 03/10/2020 1 diclofenac sodium (VOLTAREN) 1 % Gel APPLY 2 GRAMS TOPICALLY TO ARTHRITIS JOINTS 3 TIMES A DAY NEEDED 12/11/2019 1 ferrous sulfate 325 (65 Fe) MG Tablet Take 1 Tab by mouth daily. 30 Tab 11 10/28/2019 1 ipratropium (ATROVENT) 0.03 % Solution INSTILL 1 SPRAY IN EACH NOSTRIL TWICE DAILY 01/28/2020 1 meclizine (ANTIVERT) 25 MG Tablet Take 1 Tab by mouth 3 times daily as needed for Dizziness. 30 Tab 03/10/2020 1 OMEPRAZOLE PO Take 20 mg by mouth. 1 ondansetron (Zofran) 4 MG Tablet Take 4 mg by mouth every 8 hours as needed for Nausea - 1st line. 1 predniSONE (DELTASONE) 1 MG Tablet Take 1 Tab by mouth daily. 90 Tab 3 09/05/2019 02/10/202 1 predniSONE (DELTASONE) 5 MG Tablet Take 5 mg by mouth. 11/11/2019 1 documented as of this encounter Plan of Treatment Not on file documented as of this encounter Procedures Procedure Name Priority Date/Time Associated Diagnosis Comments XR SKULL, COMPLETE Routine 03/10/2020 8: 51 AM MACHINE HELPER Mastoiditis of left side documented in this encounter Results * XR SKULL, COMPLETE (03/10/2020 8:51 AM MACHINE HELPER) Anatomical Region Laterality Modality Head, Skull N/A Digital Radiogra phy 03/10/2020 10:4 5 AM MACHINE HELPER Impressions 03/10/2020 10:48 AM MACHINE HELPER IMPRESSION: ??No radiographic evidence sinusitis. Narrative 03/10/2020 10:48 AM MACHINE HELPER EXAM DESCRIPTION: ?? XR SKULL, COMPLETE REASON [...] - Electronically signed by Mali Ireland BG: D: ??03/10/2020 10:45 AM T: ??03/10/2020 10:45 AM Report ID: [id number] Reading Location: ??[id number] Procedure Note Mali Ireland MD - 03/10/2020 [...] - Electronically signed by Mali Ireland BG: Report ID: [id number] Reading Location: [place] [address] IMPRESSION: No radiographic evidence sinusitis. us Brian Mon MD IMG DIAGNOSTIC ORDERABLES Final Result documented in this encounter Visit Diagnoses Diagnosis Mastoiditis of left side Unspecified mastoiditis documented in this encounter Additional Health Concerns Assessment Noted Time PHQ-9 Depression Total Score: 0 03/25/19 10:00 AM MACHINE HELPER documented as of this encounter Care Teams Cane Flume Chute Operator Relationship Specialty Start Date End Date Gayla Barker, ROOFING TECHNICIAN, OFFICE SERVICE COORDINATOR [address] [place] [address] PCP - General Advanced Practice Nurse 03/25/19 Ct, [facility] [place] Digital [place]KHI 09/03/19 documented as of this encounter
--- OUTSIDE RECORDS SUMMARY | 2024-02-24 19:44 | XMS_ITS | Encounter Summary ---
Author Organization [facility] Address [address] [facility] [place] [address] Phone Care Team Providers Care Bed Laster Name Role Phone Gayla Barker APRN, GRAPHIC ARTIST Primary Care Provider Ct, Acute Covid At Home Care Unavailable Marianela vailable Reason for Visit * Reason Onset Date Comments Medication Management 04/09/2020 Encounter Details Date Type Department Care Team (Late st Contact Info) Description 04/09/2020 Telephone [facility] [address] [place] [address] Gayla Barker, ANNIE, GRAPHIC ARTIST [address] [place] [address] Medication Management Social History Tobacco Use Types [...] file Legal Sex Female 10:27 AM INDUSTRIAL SAFETY AND HEALTH 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 No / Unsure 04/07/2020 8:36 AM INDUSTRIAL SAFETY AND HEALTH MANAGER documented as of this encounter Miscellaneous Notes * Telephone Encounter - Champ Ojeda - 04/09/2020 9:38 AM CST Patient is requesting to start adder all, she forgot to mention at the office visit 04/07/2020. Transferred her to the triage nurse. STRIAL SAFETY AND HEALTH MANAGER documented in this encounter Plan of Treatment Not on file documented as of this encounter Visit Diagnoses Not on filedocumented in this encounter Additional Health Concerns Assessment Noted Time PHQ-9 Depression Total Score: 0 03/25/19 20 10:00 AM INDUSTRIAL SAFETY AND HEALTH MANAGER documented as of this encounter Care Teams Bed Laster Relationship Specialty Start Date End Date Gayla Barker, PLANT EQUIPMENT ENGINEER, GRAPHIC ARTIST [address] [place] [address] PCP - General Advanced Practice Nurse 03/25/19 Ct, [facility] [place] [facility] [place] Digital [place]KHI 09/03/19 documented as of this encounter
--- OUTSIDE RECORDS SUMMARY | 2024-02-24 19:44 | XMS_ITS | Encounter Summary ---
Author Organization [facility] Care Team Providers Care Marina Porter Name Role Phone Gayla Barker FUR DRUMMER, RETANNER Primary Care Provider Ct, Acute Covid At Home Care Unavailable Marianela vailable Encounter Details Date Type Department Care Team (Latest Contact Info) Description 05/30/2020 Travel Social History Tobacco Use Types Packs/Day [...] on file Legal Sex Female 10:27 AM LEATHER CASE FINISHER Gender Identity Not on file Sexual Orientation Not on file COVID-19 Exposure Response Date Recorded In the last month, have you been in contact with someone who was confirmed or suspected to have Coronavirus / COVID-19? No / Unsure 05/30/2020 9:53 PM CDT documented as of this encounter Plan of Treatment Not on file documented as of this encounter Visit Diagnoses Not on filedocumented in this encounter Additional Health Concerns Assessment Noted Time PHQ-9 Depression Total Score: 0 03/25/19 20 10:00 AM LEATHER CASE FINISHER documented as of this encounter Care Teams Marina Porter Relationship Specialty Start Date End Date Gayla Barker, FUR DRUMMER, RETANNER [address] [place] [address] PCP - General Advanced Practice Nurse 03/25/19 Ct, [facility] [place] 09/03/19 documented as of this encounter
--- OUTSIDE RECORDS SUMMARY | 2024-02-24 19:44 | XMS_ITS | Encounter Summary ---
Author Organization [facility] Address [address] [place] [address] Phone Care Team Providers Care Kitchen Porter Name Role Phone Gayla Barker APRN, WHARF WORKER Primary Care Provider Ct, Acute Covid At Home Care Unavailable Marianela vailable Encounter Details Date Type Department Care Team (Late st Contact Info) Description 01/17/2020 8:05 AM SOFTWARE DEVELOPMENT ANALYST [facility] [place] [address] [place] [id number] Testing, [facility] Nurse [place] Cough; Diarrhea, unspecified type Discharge Disposition: Discharged to home or [...] on file Legal Sex Female 10:27 AM SOFTWARE DEVELOPMENT ANALYST Gender Identity Not on file Sexual Orientation Not on file COVID-19 Exposure Response Date Recorded In the last month, have you been in contact with someone who was confirmed or suspected to have Coronavirus / COVID-19? Yes 01/16/2020 10:58 AM SOFTWARE DEVELOPMENT ANALYST documented as of this encounter Progress Notes * Tisha Lara RN - 01/17/2020 8:05 AM CST Patient was directed to come to [facility] for Covid-19 screening. Patient was instructed to stay in the vehicle for testing. Donned appropriate PPE for collection of specimen. Nasopharyngeal specimen collected, patient tolerated well. Patient education provided on self-quarantine instructions. WARE DEVELOPMENT ANALYST * Gilmar De Paz PAC - 01/17/2020 8:05 AM CST Please call patient to let them know that results of COVID testing are negative. COVID not detected. WARE DEVELOPMENT ANALYST documented in this encounter Plan of Treatment Not on file documented as of this encounter Procedures Procedure Name Priority Date/Time Associated Diagnosis Comments SARS-COV-2 BY MOLECULAR Routine 01/17/2020 8:02 AM SOFTWARE DEVELOPMENT ANALYST Cough Diarrhea, unspecified type documented in this encounter Results * SARS-COV-2 BY MOLECULAR (01/17/2020 8:02 AM SOFTWARE DEVELOPMENT ANALYST) SARSCOV2 NOT DETECTED (Referenc e Range for this test is Not Detected) [facility] FAST DX 01/18/2020 9:34 PM SOFTWARE DEVELOPMENT ANALYST [facility] Swab NASOPHARYNGEAL STRUCTURE / Unknown Non-Phlebotomy Collection / Unknown 01/17/2020 8:02 AM SOFTWARE DEVELOPMENT ANALYST 01/17/2020 8:02 AM SOFTWARE DEVELOPMENT ANALYST Narrative [facility] - 01/18/2020 9:34 PM SOFTWARE DEVELOPMENT ANALYST Authorized Fact Sheets about this test for providers and patients are available at: https://www.fda.gov/medical-devices/omktorvgt-vzecscmwli-qmxcxdh-devices/emergen -us e-authorizations Gilmar [facility] - GENERAL O RDERABLES Final Result [facility] [address] [place] [place] [address], documented in this encounter Visit Diagnoses Diagnosis Cough Diarrhea, unspecified type documented in this encounter Additional Health Concerns Infection Onset Date Last Indicated Resolved Time COVID - 19 01/16/2020 01/17/2020 01/23/2020 12:5 2 PM SOFTWARE DEVELOPMENT ANALYST Assessment Noted Time PHQ-9 Depression Total Score: 0 03/25/19 10:00 AM SOFTWARE DEVELOPMENT ANALYST documented as of this encounter Care Teams Kitchen Porter Relationship Specialty Start Date End Date Gayla Barker, TRIP FOLLOWER, WHARF WORKER [address] [place] [address] PCP - General Advanced Practice Nurse 03/25/19 Ct, [facility] Cov[facility] [place] Home [place] Digital [place]KH[place] 09/03/19 documented as of this encounter
--- OUTSIDE RECORDS SUMMARY | 2024-02-24 19:44 | XMS_ITS | Encounter Summary ---
Author Organization [facility] Care Team Providers Care Bat Person Name Role Phone Gayla Barker RELIGIOUS EDUCATION TEACHER, SENIOR CONTROLS TECHNICIAN Primary Care Provider Ct, Acute Covid At Home Care Unavailable Marianela vailable Encounter Details Date Type Department Care Team (Latest Contact Info) Description 01/12/2020 Travel Social History Tobacco Use Types Packs/Day [...] on file Legal Sex Female 10:27 AM MANAGER MEDICAL AFFAIRS Gender Identity Not on file Sexual Orientation Not on file COVID-19 Exposure Response Date Recorded In the last month, have you been in contact with someone who was confirmed or suspected to have Coronavirus / COVID-19? Yes 01/12/2020 3:13 PM MANAGER MEDICAL AFFAIRS documented as of this encounter Plan of Treatment Not on file documented as of this encounter Visit Diagnoses Not on filedocumented in this encounter Additional Health Concerns Assessment Noted Time PHQ-9 Depression Total Score: 0 03/25/19 20 10:00 AM MANAGER MEDICAL AFFAIRS documented as of this encounter Care Teams Bat Person Relationship Specialty Start Date End Date Gayla Barker, RELIGIOUS EDUCATION TEACHER, SENIOR CONTROLS TECHNICIAN [address] [place] [address] PCP - General Advanced Practice Nurse 03/25/19 Ct, [facility] [place] 09/03/19 documented as of this encounter
--- OUTSIDE RECORDS SUMMARY | 2024-02-24 19:44 | XMS_ITS | Encounter Summary ---
Author Organization [facility] Address [address] [place] [address] Phone Care Team Providers Care Gypsum Roofer Name Role Phone Gayla Barker APRN, CNP Primary Care Provider Ct, Acute Covid At Home Care Unavailable Marianela vailable Reason for Visit * Reason Onset Date Comments COVID-19 01/16/2020 Encounter Details Date Type Department Care Team (Late st Contact Info) Description 01/16/2020 Telephone [facility] - Primary Care - [place] [address] [place] [address] Gayla Barker APRN, CNP [address] [place] [address] COVID-19 Social History Tobacco Use Types Packs/Day [...] on file Legal Sex Female 10:27 AM GLOBAL LOGISTICS 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 Yes 01/16/2020 10:58 AM GLOBAL LOGISTICS MANAGER documented as of this encounter Miscellaneous Notes * Telephone Encounter - Leti Gusman RN - 01/16/2020 4:00 PM GLOBAL LOGISTICS MANAGER See nurse triage note of 01-16-20. AL LOGISTICS MANAGER * Telephone Encounter - Leti Gusman RN - 01/16/2020 10:01 AM GLOBAL LOGISTICS MANAGER Attempted to phone patient to relay provider message. No answer. Voicemail left to call the office. AL LOGISTICS MANAGER * Telephone Encounter - Gilmar De Paz PAC - 01/16/2020 9:34 AM GLOBAL LOGISTICS MANAGER We don't do COVID swabs on asymptomatic individuals. She will need to seek out other community testing sites. Please follow CDC recommendations and guidelines. AL LOGISTICS MANAGER * Telephone Encounter - Leti Gusman RN - 01/16/2020 9:11 AM GLOBAL LOGISTICS MANAGER Please advise. AL LOGISTICS MANAGER * Telephone Encounter - Sandi Watters - 01/16/2020 9:03 AM CST Patient states she has been exposed to Covid and is having no symptons. She is requesting an order for drive up covid test AL LOGISTICS MANAGER documented in this encounter Plan of Treatment Not on file documented as of this encounter Visit Diagnoses Not on filedocumented in this encounter Additional Health Concerns Infection Onset Date Last Indicated Resolved Time COVID - 19 01/16/2020 01/17/2020 01/23/2020 12:5 2 PM GLOBAL LOGISTICS MANAGER Assessment Noted Time PHQ-9 Depression Total Score: 0 03/25/19 10:00 AM GLOBAL LOGISTICS MANAGER documented as of this encounter Care Teams Gypsum Roofer Relationship Specialty Start Date End Date Gayla Barker, [employer] WEBSPHERE COMMERCE CONSULTANT, WET PROCESS MILLER HEAD ASSISTANT [address] [place] [address] PCP - General Advanced Practice Nurse 03/25/19 Ct, [facility] [place]KH[place] 09/03/19 documented as of this encounter
--- OUTSIDE RECORDS SUMMARY | 2024-02-24 19:44 | XMS_ITS | Encounter Summary ---
Author Organization [facility] Care Team Providers Care Livestock Ranch Hand Name Role Phone Gayla Barker RESIDENTIAL ADVISOR, MUSIC LEADER Primary Care Provider Ct, Acute Covid At Home Care Unavailable Marianela vailable Encounter Details Date Type Department Care Team (Latest Contact Info) Description 02/03/2020 Travel Social History Tobacco Use Types Packs/Day [...] on file Legal Sex Female 10:27 AM ICE CREAM VAULT WORKER Gender Identity Not on file Sexual Orientation Not on file COVID-19 Exposure Response Date Recorded In the last month, have you been in contact with someone who was confirmed or suspected to have Coronavirus / COVID-19? No / Unsure 02/03/2020 12:59 PM ICE CREAM VAULT WORKER documented as of this encounter Plan of Treatment Not on file documented as of this encounter Visit Diagnoses Not on filedocumented in this encounter Additional Health Concerns Assessment Noted Time PHQ-9 Depression Total Score: 0 03/25/19 20 10:00 AM ICE CREAM VAULT WORKER documented as of this encounter Care Teams Livestock Ranch Hand Relationship Specialty Start Date End Date Gayla Barker, RESIDENTIAL ADVISOR, MUSIC LEADER [address] [place] [address] PCP - General Advanced Practice Nurse 03/25/19 Ct, [facility] [place] 09/03/19 documented as of this encounter
--- OUTSIDE RECORDS SUMMARY | 2024-02-24 19:44 | XMS_ITS | Encounter Summary ---
Author Organization [facility] Address [address] [place] [address] Phone Care Team Providers Care Legal Contracts Specialist Name Role Phone Gayla Barker APRN, HARSHA Primary Care Provider Ct, Acute Covid At Home Care Unavailable Marianela vailable Reason for Visit * Reason Comments Anxiety Encounter Details Date Type Department Care Team (Late st Contact Info) Description 02/02/2021 1:00 PM SCALP TREATMENT SPECIALIST Telemedicine [facility] - Primary Care - [place] [address] [place] [address] Gayla Barker APRN, CHARCOAL BURNER BEEHIVE KILN [address] [place] [address] Anxiety (Primary Dx) Social History Tobacco Use Types [...] on file Legal Sex Female 10:27 AM SCALP TREATMENT SPECIALIST Gender Identity Not on file Sexual Orientation Not on file COVID-19 Exposure Response Date Recorded In the last month, have you been in contact with someone who was confirmed or suspected to have Coronavirus / COVID-19? No / Unsure 02/02/2021 12:45 PM SCALP TREATMENT SPECIALIST documented as of this encounter Last Filed Vital Signs Vital Sign Reading Time Taken Comments Blood Pressure - - Pulse - - Temperature - - Respiratory Rate - - Oxygen Saturation - - Inhaled Oxygen Concentration - - Weight - - Height 157.5 cm (5' 2 ) 02/02/2021 12:54 PM SCALP TREATMENT SPECIALIST Body Mass Index - - documented in this encounter Patient Instructions * Patient Instructions* Gayla Barker APRN, CNP - 02/02/2021 1:00 PM SCALP TREATMENT SPECIALIST Continue current dose of Zoloft. Follow-up as needed. P TREATMENT SPECIALIST documented in this encounter Progress Notes * Gayla Barker APRN, CNP - 02/02/2021 1:00 PM CST Subjective: Patient was assessed via online video for a duration of 15 minutes.?? Patient verbally consented for this service to be performed and billed. Patient presents for a video encounter for follow-up on her anxiety. She states that she needs refill on her Zoloft that she has been getting it from [facility]. She states that the Zoloft is doing well for her and she has no other concerns or complaints. Review of Systems Constitutional: Negative for fever. HENT: Negative. Respiratory: Negative for cough and shortness of breath. Cardiovascular: Negative for chest pain and palpitations. Gastrointestinal: Negative for constipation, diarrhea, nausea and vomiting. Genitourinary: Negative. Musculoskeletal: Negative. Neurological: Negative for dizziness and headaches. Psychiatric/Behavioral: The patient is nervous/anxious. Objective: Physical Exam Nursing note reviewed. Constitutional: Appearance: Normal appearance. Pulmonary: Effort: Pulmonary effort is normal. Neurological: Mental Status: She is alert and oriented to person, place, and time. Psychiatric: Mood and Affect: Mood normal. Video encounter. Physical exam omitted. Assessment and Plan See Diagnoses, Orders, Follow-up, and Instructions Encounter Diagnosis Name Primary? Anxiety Yes Continue current dose of Zoloft. Follow-up as needed. Documentation for this visit on 02/02/2021 was completed using a template. I have seen and examinedthe patient. Everything documented was personally performed at this visit with the necessary additions, deletions and changes made as appropriate. P TREATMENT SPECIALIST documented in this encounter Plan of Treatment Not on file documented as of this encounter Visit Diagnoses Diagnosis Anxiety- Primary Anxiety state, unspecified documented in this encounter Additional Health Concerns Assessment Noted Time PHQ-9 Depression Total Score: 0 03/25/19 10:00 AM SCALP TREATMENT SPECIALIST documented as of this encounter Care Teams Legal Contracts Specialist Relationship Specialty Start Date End Date Gayla Barker APRN, CHARCOAL BURNER BEEHIVE KILN [address] [place] [address] PCP - General Advanced Practice Nurse 03/25/19 Ct, [facility] [place] Digital [place]KH[place] 09/03/19 documented as of this encounter
--- OUTSIDE RECORDS SUMMARY | 2024-02-24 19:44 | XMS_ITS | Encounter Summary ---
Author Organization [facility] Address [address] [place] [address] Phone Care Team Providers Care Diabetes Physician Name Role Phone Gayla Barker APRN, AUTO SUSPENSION AND STEERING MECHANIC Primary Care Provider Ct, [facility] Unavailable Marianela vailable Reason for Visit * Reason Comments Rash Encounter Details Date Type Department Care Team (Late st Contact Info) Description 01/31/2020 12:02 PM INVENTORY CONTROL SPECIALIST - 01/31/2020 1:23 PM INVENTORY CONTROL SPECIALIST Emergency [facility] Emergency [address] [place] [address] Gayla Jimenez, PAC [address] [place] [address] Allergic reaction caused by a drug Discharge Disposition: Discharged to home or Selfcare [...] on file Legal Sex Female 10:27 AM INVENTORY CONTROL SPECIALIST Gender Identity Not on file Sexual Orientation Not on file COVID-19 Exposure Response Date Recorded In the last month, have you been in contact with someone who was confirmed or suspected to have Coronavirus / COVID-19? No / Unsure 01/31/2020 12:06 PM INVENTORY CONTROL SPECIALIST documented as of this encounter Last Filed Vital Signs Vital Sign Reading Time Taken Comments Blood Pressure 105/73 01/31/2020 1:15 PM INVENTORY CONTROL SPECIALIST Pulse 74 01/31/2020 1:15 PM INVENTORY CONTROL SPECIALIST Temperature 37.1 ??C (98.7 ??F) 01/31/2020 12:[address] Respiratory Rate 20 01/31/2020 12:08 PM INVENTORY CONTROL SPECIALIST Oxygen Saturation 99% 01/31/2020 1:15 PM INVENTORY CONTROL SPECIALIST Inhaled Oxygen Concentration - - Weight 76.2 kg (168 lb) 01/31/2020 12:08 PM INVENTORY CONTROL SPECIALIST Height 160 cm (5' 3 ) 01/31/2020 12:08 PM INVENTORY CONTROL SPECIALIST Body Mass Index 29.76 01/31/2020 12:08 PM INVENTORY CONTROL SPECIALIST documented in this encounter Discharge Instructions * Discharge Instructions* Gayla Jimenez PAC - 01/31/2020 1:18 PM INVENTORY CONTROL SPECIALIST Please do not take amoxicillin or any penicillin the future. Take prednisone 40 mg for the next three days. Please continue benadryl every 4-6 hours. Return if you have any worsening symptoms. NTORY CONTROL SPECIALIST * Attachments The following attachments cannot be sent through Care Everywhere. * Otitis Media, Antibiotic Treatment (Adult) (Citizen Of [place]) * Reaction, Medicine: Allergic (Citizen Of [place]) documented in this encounter Medications at Time [...] for Anxiety. 60 Tab 1 11/14/2019 1 azithromycin (Zithromax Z-Maximilian) 250 MG TabletIndication s:Bronchiolitis 2 tab(s) daily for 1 day, then 1 tab(s) daily for days 2-5. 6 Tab 12/28/2019 0 Belimumab (Benlysta) 200 MG/ML Solution Auto-injector 11/04/2019 1 diclofenac sodium (VOLTAREN) 1 % Gel APPLY 2 GRAMS TOPICALLY TO ARTHRITIS JOINTS 3 TIMES A DAY NEEDED 12/11/2019 1 ferrous sulfate 325 (65 Fe) MG Tablet Take 1 Tab by mouth daily. 30 Tab 11 10/28/2019 1 ipratropium (ATROVENT) 0.03 % Solution INSTILL 1 SPRAY IN EACH NOSTRIL TWICE DAILY 01/28/2020 1 OMEPRAZOLE PO Take 20 mg by mouth. 1 ondansetron (Zofran) 4 MG Tablet Take 4 mg by mouth every 8 hours as needed for Nausea - 1st line. 1 predniSONE (DELTASONE) 1 MG Tablet Take 1 Tab by mouth daily. 90 Tab 3 09/05/2019 1 predniSONE (DELTASONE) 5 MG Tablet Take 5 mg by mouth. 11/11/2019 1 documented as of this encounter ED Notes * Bon Shi RN - 01/31/2020 1:22 PM CST Patient discharged. Discharge instructions and patient educational material reviewed with patient; questions and concerns addressed; patient verbalizes understanding, using teach back. Patient discharged per ambulatory mode with self as responsible democrat. NTORY CONTROL SPECIALIST * Bon Shi RN - 01/31/2020 12:54 PM CST Pt medicated per provider orders. Pt educated on intended effects and side effects of medication and verbalized understanding, able to provide teach back of education. NTORY CONTROL SPECIALIST * Gayla Jimenez PAC - 01/31/2020 12:39 PM CST Chief Complaint Patient presents with ??? Rash HPI Carito Rausch is a 29 y.o. female who presents concerned for an allergic reaction. She satesthat she was started on amoxicillin yesterday for a bilateral ear infection and she started to break out in a rash. She states that her physician changed the antibiotic to zithromax yesterday and also prescribed a steroid cream for the rash. She states that today she feels like her throat is tight and sore. She states her rash persists. She states she feels flushed and like her heart is racing. She takes prednisone 10 mg daily for lupus. No current facility-administered medications for this encounter. Current Outpatient Medications Medication Sig Dispense Refill ??? albuterol (ProAir HFA) 108 (90 Base) MCG/ACT Aerosol Solution take 2 Puffs by inhalation every 4 hours as needed for Wheezing or Cough. 1 Inhaler 0 ??? ALPRAZolam (XANAX) 0.5 MG Tablet Take 1 Tab by mouth 2 times daily as needed for Anxiety. 60 Tab 1 ??? azithromycin (Zithromax Z-Maximilian) 250 MG Tablet 2 tab(s) daily for 1 day, then 1 tab(s) daily for days 2-5. 6 Tab 0 ??? Belimumab (Benlysta) 200 MG/ML Solution Auto-injector ??? diclofenac sodium (VOLTAREN) 1 % Gel APPLY 2 GRAMS TOPICALLY TO ARTHRITIS JOINTS 3 TIMES A DAY NEEDED ??? ferrous sulfate 325 (65 Fe) MG Tablet Take 1 Tab by mouth daily. (Patient not taking: Reported on 01/31/2020) 30 Tab 11 ??? hydroxychloroquine (PLAQUENIL) 200 MG Tablet Take 1 Tab by mouth daily. 90 Tab 3 ??? OMEPRAZOLE PO Take 20 mg by mouth. ??? ondansetron (Zofran) 4 MG Tablet Take 4 mg by mouth every 8 hours as needed for Nausea - 1st line. ??? predniSONE (DELTASONE) 1 MG Tablet Take 1 Tab by mouth daily. (Patient not taking: Reported on 01/31/2020) 90 Tab 3 ??? predniSONE (DELTASONE) 5 MG Tablet Take 10 mg by mouth. Allergies Allergen Reactions ??? Amoxicillin Rash ??? Effexor [Venlafaxine] Itching ??? Lexapro [Escitalopram] Other (see Comments) Caused seizures ??? Medrol [Methylprednisolone] Anaphylaxis Past Medical History Positives Diagnosis Date ??? [...] file ??? Highest education level: Associate degree: occupational, technical, or vocational program Occupational History ??? Not on file Social Needs ??? Financial resource strain: Not on file ??? Food insecurity Worry: Not on file Inability: Not on file ??? Transportation needs Medical: Not on file Non-medical: Not on file Tobacco Use ??? Smoking status: Current Some Day Smoker ??? Smokeless tobacco: Never Used ??? Tobacco comment: only when drink Substance and Sexual Activity ??? Alcohol use: Yes Frequency: Monthly or less Comment: occasionally ??? Drug use: Yes Types: Marijuana, Cocaine ??? Sexual activity: Not on file Lifestyle ??? Physical activity Days per week: Not on file Minutes per session: Not on file ??? Stress: Not on file Relationships ??? Social connections Talks on phone: Not on file Gets together: Not on file Attends rastafarian service: Not on file Active member of [...] History Narrative ??? Not on file BP 105/73 Pulse 74 Temp 98.7 ??F (37.1 ??C) (Tympanic) Resp 20 Ht 5' 3 (1.6 m) Wt 168 lb(76.2 kg) LMP 12/06/2019 (Approximate) SpO2 99% BMI 29.76 kg/m?? Review of Systems Constitutional: Negative for chills and fever. HENT: Positive for sore throat. Negative for congestion and ear pain. Eyes: Negative for pain and discharge. Respiratory: Negative for cough, chest tightness and shortness of breath. Cardiovascular: Negative for chest pain, palpitations and leg swelling. Gastrointestinal: Negative for abdominal distention, abdominal pain, blood in stool, constipation, diarrhea, nausea and vomiting. Genitourinary: Negative for dysuria, frequency and vaginal discharge. Musculoskeletal: Negative for arthralgias and back pain. Skin: Positive for rash. Negative for color change. Neurological: Negative for dizziness, weakness, light-headedness and headaches. Psychiatric/Behavioral: Negative for suicidal ideas. All other systems reviewed and are negative. Physical Exam Vitals signs and nursing note reviewed. Constitutional: General: She is not in acute distress. Appearance: She is well-developed. She is not diaphoretic. HENT: Head: Normocephalic and atraumatic. Right Ear: External ear normal. Left Ear: External ear normal. Mouth/Throat: Pharynx: Posterior oropharyngeal erythema present. No oropharyngeal exudate. Eyes: Conjunctiva/sclera: Conjunctivae normal. Pupils: Pupils are equal, round, and reactive to light. Neck: Musculoskeletal: Normal range of motion. Trachea: No tracheal deviation. Cardiovascular: Rate and [...] There is no guarding or rebound. Musculoskeletal: Normal range of motion. Skin: General: Skin is warm and dry. Comments: Papular rash to upper chest. Face appears slightly edematous. Neurological: Mental Status: She is alert and oriented to person, place, and time. Cranial Nerves: No cranial nerve deficit. Labs Reviewed CULTURE, GRP A STREPTOCOCCUS, CULT ONLY POCT GROUP A STREP SCREEN RAPID No orders to display Procedures Imaging Results None MDM Coding Clinical Impression 1. Allergic reaction caused by a drug 2. Bilateral acute serous otitis media Patient was given decadron 10 mg IM and advised to increase her prednisone to 40 mg daily for the next three days. She states that she has enough prednisone at home. Advised taking the zpak and continuing benadryl. She understands to not take amoxil in the future. Advised returning if her sx changeor worsen. Cosigned by Alton Valerio MD at 01/31/2020 1:49 PM INVENTORY CONTROL SPECIALIST NTORY CONTROL SPECIALIST NTORY CONTROL SPECIALIST * Bon Shi, RN - 01/31/2020 12:12 PM CST PT to ED via EMS with c/o rash due amoxicillin. 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 PT states calling her DrRosa and stopping amoxicillin yesterday. PT reports taking benadryl this AM. PT requesting to go home during triage. NTORY CONTROL SPECIALIST * Supriya Stevenson - 01/31/2020 12:02 PM CST Bed: [place] [id number] Expected date: 01/31/20 Expected time: 11:59 AM Means of arrival: Ambulance ([facility]) Comments: [facility] NTORY CONTROL SPECIALIST documented in this encounter Plan of Treatment Not on file documented as of this encounter Procedures Procedure Name Priority Date/Time Associated Diagnosis Comments POCT GROUP A STREP SCREEN RAPID STAT 01/31/2020 12:55 PM INVENTORY CONTROL SPECIALIST CULTURE, GRP A STREPTOCOCCUS, CULT ONLY STAT 01/31/2020 12:55 PM INVENTORY CONTROL SPECIALIST documented in this encounter Results * Culture, Grp A Streptococcus, Cult Only (01/31/2020 12:55 PM INVENTORY CONTROL SPECIALIST) CULTURE RESULTS NO STREP PYOGENES (GROUP A BETA HEMOLYTIC STREP) ISOLATED AFTER 2 DAYS 02/02/2020 2:41 PM INVENTORY CONTROL SPECIALIST [facility] Culture SPECIMEN FROM THROAT / Unknown Non-Phlebotomy Collection / Unknown 01/31/2020 12:55 PM INVENTORY CONTROL SPECIALIST 01/31/2020 1:22 PM INVENTORY CONTROL SPECIALIST Gayla Rangel Page PAC MICROBIOLOGY - GENERAL ORDER ANAHI Final Result [facility] [address] [place] [address], [place] * POCT Group A Strep Screen Rapid (01/31/2020 12:55 PM INVENTORY CONTROL SPECIALIST) POC STREP SCRN Presumptive negative POC STREP SCREEN CONTROL Corporate Quality Engineer Pass 01/31/2020 12:5 5 PM INVENTORY CONTROL SPECIALIST Gayla Rangel Page PAC POINT OF CARE TESTING (MANUA L) Final Result documented in this encounter Visit Diagnoses Diagnosis Allergic reaction caused by a drug- Primary Other drug allergy Bilateral acute serous otitis media Acute serous otitis media documented in this encounter Administered Medications Inactive Administered Medications - up to 3 most recent administrations Medication Order MAR Action Action Date Dose Rate Site dexamethasone (DECADRON) injection 10 mg 10 mg, Intramuscular, ONCE, 1 dose, On 01/31/20 at 1300 Given 01/31/2020 12:53 PM INVENTORY CONTROL SPECIALIST 10 mg Left Vastus Laterali s documented in this encounter Active and Recently Administered Medications Times are shown in INVENTORY CONTROL SPECIALIST. Scheduled Medication Order 01/29/2020 01/30/2020 01/31/2020 dexamethasone (DECADRON) injection 10 mg (COMPLETED) 10 mg, Intramuscular, ONCE, 1 dose, On 01/31/20 at 1300 1253 (Given - Provid er: Bon Shi RN) documented in this encounter Additional Health Concerns Assessment Noted Time PHQ-9 Depression Total Score: 0 03/25/19 20 10:00 AM INVENTORY CONTROL SPECIALIST documented as of this encounter Care Teams Diabetes Physician Relationship Specialty Start Date End Date Gayla Barker, DELI ASSOCIATE, AUTO SUSPENSION AND STEERING MECHANIC [address] [place] [address] PCP - General Advanced Practice Nurse 03/25/19 Ct[facility] [place] [employer] [facility] 09/03/19 documented as of this encounter
--- OUTSIDE RECORDS SUMMARY | 2024-02-24 19:44 | XMS_ITS | Encounter Summary ---
Author Organization [facility] Address [address] [facility] [place] [address] Phone Care Team Providers Care Insurance Claims Examiner Name Role Phone Gayla Barker APRN, PROCUREMENT FORESTER Primary Care Provider Ct, [facility] Unavailable Marianela vailable Reason for Visit * Reason Onset Date Comments COVID-19 08/20/2020 fatigue, body ac hes, vomiting Generalized Body Aches 08/20/2020 Fatigue 08/20/2020 Encounter Details Date Type Department Care Team (Late st Contact Info) Description 08/20/2020 Nurse Triage [facility] [address] [place] [address] Gayla Barker APRN, PROCUREMENT FORESTER [address] [place] [address] COVID-19 (fatigue, body aches, vomiting); Generalized Body Aches; Fatigue Social History Tobacco Use Types Packs/Day [...] file 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 Yes 08/20/2020 9:15 AM CDT documented as of this encounter Miscellaneous Notes * Telephone Encounter - Leti Gusman RN - 08/24/2020 8:14 AM CDT Patient notified of PCP message. Verbalized understanding. * Telephone Encounter - Virgen Chamberlain RN - 08/23/2020 11:57 AM CDT Left message for patient to call office back * Telephone Encounter - Virgen Chamberlain RN - 08/20/2020 9:13 AM CDT Images from the original note were not included. SITUATION: Sweating, vomiting, body aches, says everyone at work has all these symptoms, BACKGROUND: Covid tested 08/16 negative, 18 weeks . Symptoms started on 08/16 and then came today and went to work in between, hx of lupus ASSESSMENT: Symptom Description / Location: sweating mainly at night, fatigued, no appetite, vomited today and mainly when eating, generalized body aches but mainly her legs, just feels achy like the flu, Pain (0-10): 5/10 Temp: no fever Treatment / Response: SANTIAGO hernandez : 03/2020 Travel Screening Question Response In the last month, have you been in contact with someone who was confirmed or suspected to have Coronavirus / COVID-19? Yes (08/07/20 exposed to friend) Have you had a COVID-19 viral test in the last 14 days? Yes - Negative result (08/16) Do you have any of the following new or worsening symptoms? Muscle pain;Fatigue;Vomiting Have you traveled internationally in the last month? No Travel History Travel since 07/20/20 No documented travel since 07/20/20 COVID-19 Testing Priority for Carito [place]: 2 RECOMMENDATION: See care advice and disposition for Guideline First positive answer recorded, all responses to prior questions were negative. If symptoms increase, change or if new symptoms develop, call your HCP or call back. Recommendations were based on caller information and is not a diagnosis. Verified and reviewed all triage information with caller. Reason for Disposition ? ? Fatigue (i.e., tires easily, decreased energy) and persists > 1 week Protocols used: WEAKNESS (GENERALIZED) AND [id number] Patient is wanting to stay home from work and doesn't noy appointment would just like you to write her another note Please advise Meds/allergies and pharmacy verified. Verbalized understanding of all care advice given documented in this encounter Plan of Treatment Not on file documented as of this encounter Visit Diagnoses Not on filedocumented in this encounter Additional Health Concerns Assessment Noted Time PHQ-9 Depression Total Score: 0 03/25/19 20 10:00 AM INVENTORY CLERK documented as of this encounter Care Teams Insurance Claims Examiner Relationship Specialty Start Date End Date Gayla Barker, AGRICULTURAL COMMODITIES GRADER, PROCUREMENT FORESTER [address] [place] [address] PCP - General Advanced Practice Nurse 03/25/19 Ct, [facility] [place] [employer] [facility] 09/03/19 documented as of this encounter
--- OUTSIDE RECORDS SUMMARY | 2024-02-24 19:44 | XMS_ITS | Encounter Summary ---
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
--- OUTSIDE RECORDS SUMMARY | 2024-02-24 19:44 | XMS_ITS | Encounter Summary ---
Author Organization [employer] Care Team Providers Care Pellet Preparation Operator Name Role Phone Gayla Barker PLYWOOD STOCK GRADER, DISTRICT BRANCH MANAGER Primary Care Provider Ct, [facility] Unavailable Marianela vailable Encounter Details Date Type Department Care Team (Latest Contact Info) Description 01/31/2020 Travel Social History Tobacco Use Types Packs/Day [...] on file Legal Sex Female 10:27 AM POURER OFF Gender Identity Not on file Sexual Orientation Not on file COVID-19 Exposure Response Date Recorded In the last month, have you been in contact with someone who was confirmed or suspected to have Coronavirus / COVID-19? No / Unsure 01/31/2020 12:06 PM POURER OFF documented as of this encounter Plan of Treatment Not on file documented as of this encounter Visit Diagnoses Not on filedocumented in this encounter Additional Health Concerns Assessment Noted Time PHQ-9 Depression Total Score: 0 03/25/19 20 10:00 AM POURER OFF documented as of this encounter Care Teams Pellet Preparation Operator Relationship Specialty Start Date End Date Gayla Barker, PLYWOOD STOCK GRADER, DISTRICT BRANCH MANAGER [address] [place] [address] PCP - General Advanced Practice Nurse 03/25/19 Ct, [facility] [place] [employer] [facility] 09/03/19 documented as of this encounter
--- OUTSIDE RECORDS SUMMARY | 2024-02-24 19:44 | XMS_ITS | Encounter Summary ---
Author Organization [facility] Address [address] [place] [address] Phone Care Team Providers Care Spiral Binder Name Role Phone Gayla Barker APRN, DATA ANALYTICS SPECIALIST Primary Care Provider Ct, [facility] Home [facility] Unavailable Marianela vailable Reason for Visit * Reason Comments Ear Pain Encounter Details Date Type Department Care Team ([facility] st Contact Info) Description 07/11/2020 10:10 AM CDT [facility]gent [facility] [address] [place] [address] Chitra Kaur APRN, DATA ANALYTICS SPECIALIST [address] [place] [address] Otalgia, bilateral (Primary Dx); Decreased hearing of both ears Discharge Disposition: Discharged to [...] on file 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 No / Unsure 07/11/2020 10:08 AM CDT documented as of this encounter Last Filed Vital Signs Vital Sign Reading Time Taken Comments Blood Pressure 106/70 07/11/2020 10:21 AM CDT Pulse 84 07/11/2020 10:21 AM CDT Temperature 36.6 ??C (97.8 ??F) 07/11/2020 10:21 AM C DT Respiratory Rate 20 07/11/2020 10:21 AM CDT Oxygen Saturation 98% 07/11/2020 10:21 AM CDT Inhaled Oxygen Concentration - - Weight 78.5 kg (173 lb) 07/11/2020 10:21 AM CDT Height - - Body Mass Index 31.64 06/15/2020 12:35 PM CDT documented in this encounter Patient Instructions * Patient Instructions* Chitra Kaur APN, DATA ANALYTICS SPECIALIST - 07/11/2020 10:10 AM CDT Images from the original note were not included. Earache, No Infection (Adult)?? Earaches can happen without an infection. They can occur when air and fluid build up behind the eardrum. They may cause a feeling of fullness and discomfort. They may also impair hearing. This is called otitis media with effusion (OME) or serous otitis media. It means there is fluid in the middle ea r. It is not the same as acute otitis media, which is often from an infection. OME can happen when you have a cold if congestion blocks the passage that drains the middle ear. This passage is called the eustachian tube. OME may also occur with nasal allergies or after a bacterial infection in the middle ear. Other causes are: ?? Trauma ?? Improper cleaning of wax from the ear ?? Bacterial infection of the mastoid bone (mastoiditis) ?? Tumor ?? Jaw pain ?? Changes in pressure, such as from flying or scuba diving The pain or discomfort may come and go. You may hear clicking or popping sounds when you chew or swallow. You may feel that your balance is off. Or you may hear ringing in the ear. It often takes from several weeks up to 3 months for the fluid to clear on its own. Oral pain relievers and ear drops help if there is pain. Decongestants and antihistamines sometimes help. Antibiotics don't help since there is no infection. Your healthcare provider may give you a nasal spray to help reduce swelling in the nose and eustachian tube. This can allow the ear to drain. If your OME doesn't get better after 3 months, surgery may be used to drain the fluid. A small tubemay also be put in the eardrum to help with drainage. Because the middle ear fluid can become infected, watch for signs of an infection. These may develop later. They may include increased ear pain, fever, or drainage from the ear. Home care These home-care tips will help you take care of yourself: ?? You may use ajla-nse-pvsatqi medicine as directed by your healthcare provider to control pain, unless medicine was prescribed. If you have chronic liver or kidney disease or ever had a stomach ulcer or GI bleeding, talk with your healthcare provider before using any medicines. ?? Aspirin should never be used in anyone younger than age 18 who has a fever. It may cause severe liver damage. ?? Ask your healthcare provider if you may use lezi-nok-xqzlnod decongestants such as phenylephrineor pseudoephedrine. Keep in mind they are not always helpful. ?? Talk with your healthcare provider about using nasal spray decongestants. Don't use them for more than 3 days, or as directed by your healthcare provider. Longer use can make congestion worse. Prescription nasal sprays from your healthcare provider don't often have such restrictions. ?? Antihistamines may help if you are also having allergy symptoms. ?? You may use medicines such as guaifenesin to thin mucus and help with drainage. Follow-up care Follow up with your healthcare provider or as advised if you are not feeling better after 3 days. When to seek medical advice Call your healthcare provider right away if any of these occur: ?? Ear pain that gets worse or that does not start to get better? Fever of 100.4??F (38??C) or higher, or as directed by your healthcare provider ?? Fluid or blood draining from the ear ?? Headache or sinus pain ?? Stiff neck ?? Unusual drowsiness or confusion [employer] reviewed this educational content on 01/26/2019 ?? [id number] [employer]. All rights reserved. This information is not intended as a substitute for professional medical care. Always follow your healthcare professional's instructions. documented in this encounter Progress Notes * Chio Friend CMA - 07/11/2020 10:10 AM CDT Patient complains of pain in both ears since off on on since 4-5 months ago. * Khushbu Watters RN - 07/11/2020 10:10 AM CDT Bilateral ear irrigation performed. 120 ml warm water used in each ear with the elephant ear washer. Patient tolerated procedure fair. I was unable to complete ear wash to left ear related to discomfort verbalized by patient. * Chitra Kaur APN, CNP - 07/11/2020 10:10 AM CDT Subjective: Chief complaint, ROS, and all history documented by ancillary staff, and any copy/pasted information were reviewed and verified, with additions or corrections, as appropriate. Available past family, social, medical history was reviewed. Patient reports that she has been to ENT at [facility]. She was last seen there in March. She statesthat they tried to put tubes in her ears but were not able to. She states that she did not go back after that as she was not happy with that experience. She reports that she continues have pain, fullness, muffled hearing, and dizziness. She reports that she is 12 weeks . She has not taken anything OTC due to the . Review of Systems Constitutional: Negative for fever. HENT: Positive for ear pain and hearing loss. Negative for ear discharge. Objective: Physical Exam Vitals and nursing note reviewed. Constitutional: General: She is not in acute distress. HENT: Right Ear: Tympanic membrane and ear canal normal. Left Ear: There is impacted cerumen. Mouth/Throat: Pharynx: Oropharynx is clear. Lymphadenopathy: Cervical: No cervical adenopathy. Neurological: Mental Status: She is alert. Vitals: 07/11/20 1021 BP: 106/70 BP Location: Right Arm BP Position: Sitting BP Cuff Size: Regular Pulse: 84 Resp: 20 Temp: 97.8 ??F (36.6 ??C) TempSrc: Tympanic SpO2: 98% Weight: 173 lb (78.5 kg) Attempted to flush out the ear wax today. Patient did not tolerate this. Advised that she needs to follow up with the ENT and if she can always get a 2nd opinion form another ENT. Referral was offered. Patient declined. She has used multiple nose sprays, antibiotics, and other OTC allergy medications and mucinex. We can try an ear drop as she states that the pain is in the canal. She does have an allergy to methylprednisolone but tolerates and takes prednisone. Assessment and Plan See Diagnoses, Orders, Follow-up, and Instructions Diagnoses and all orders for this visit: Otalgia, bilateral Comments: tylenol as needed for pain. follow dosage directions on package warm compresses to the ear as tolerated. Decreased hearing of both ears Comments: follow up with ENT Other orders - sertraline (ZOLOFT) 25 MG Tablet; Take 25 mg by mouth. - Progesterone 200 MG Capsule; Take 200 mg by mouth. - [id number], OTIC, 1 % Solution; Place 3 Drops in affected ear(s) 3 times daily for 10 days. Use in affected ear(s) as directed. Care as instructed on AVS If medication [...] as of this encounter Visit Diagnoses Diagnosis Otalgia, bilateral- Primary Decreased hearing of both ears documented in this encounter Additional Health Concerns Assessment Noted Time PHQ-9 Depression Total Score: 0 03/25/19 20 10:00 AM DYE REEL OPERATOR documented as of this encounter Care Teams Spiral Binder Relationship Specialty Start Date End Date Gayla Barker, HARSHA VALENCIA [address] [place] [address] PCP - General Advanced Practice Nurse 03/25/19 Ct, [facility] [place] [employer] [facility] 09/03/19 documented as of this encounter
--- OUTSIDE RECORDS SUMMARY | 2024-02-24 19:44 | XMS_ITS | Encounter Summary ---
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 No / Unsure 03/30/2020 3:36 PM WELDING MACHINE OPERATOR [employer] documented as of this encounter Plan of Treatment Not on file documented as of this encounter Visit Diagnoses Not on filedocumented in this encounter Additional Health Concerns Assessment Noted Time PHQ-9 Depression Total Score: 0 03/25/19 20 10:00 AM WELDING MACHINE OPERATOR GAS [employer] documented as of this encounter Care Teams Technical Agronomist Relationship Specialty Start Date End Date Gayla Barker, JOB ANALYST, MASTER RIGGER [address] [place] [address] PCP - General Advanced Practice Nurse 03/25/19 Ct, [facility] [place] [employer] [place] 09/03/19 documented as of this encounter
--- OUTSIDE RECORDS SUMMARY | 2024-02-24 19:44 | XMS_ITS | Encounter Summary ---
Author Organization [facility] Care Team Providers Care Survey Field Technician Name Role Phone Gayla Barker MANAGER BUSINESS BANKING, GARBAGE WORKER Primary Care Provider Ct, [facility] Home [facility] Unavailable Marianela vailable Encounter Details Date Type Department Care Team (Latest Contact Info) Description 12/31/2019 Travel Social History Tobacco Use Types Packs/Day [...] on file Legal Sex Female 10:27 AM GROUND SUPPORT EQUIPMENT ASSEMBLER Gender Identity Not on file Sexual Orientation Not on file COVID-19 Exposure Response Date Recorded In the last month, have you been in contact with someone who was confirmed or suspected to have Coronavirus / COVID-19? Yes 12/31/2019 1:08 PM GROUND SUPPORT EQUIPMENT ASSEMBLER documented as of this encounter Plan of Treatment Not on file documented as of this encounter Visit Diagnoses Not on filedocumented in this encounter Additional Health Concerns Assessment Noted Time PHQ-9 Depression Total Score: 0 03/25/19 20 10:00 AM GROUND SUPPORT EQUIPMENT ASSEMBLER documented as of this encounter Care Teams Survey Field Technician Relationship Specialty Start Date End Date Gayla Barker, MANAGER BUSINESS BANKING, GARBAGE WORKER [address] [place] [address] PCP - General Advanced Practice Nurse 03/25/19 Ct, [facility] [place] [facility] [place] 09/03/19 documented as of this encounter
--- OUTSIDE RECORDS SUMMARY | 2024-02-24 19:44 | XMS_ITS | Encounter Summary ---
Author Organization [facility] Address [address] [place] [address] Phone Care Team Providers Care Flat Lock Machine Operator Name Role Phone Gayla Barker APRN, HARSHA Primary Care Provider Ct, [facility] Home [facility] Unavailable Marianela vailable Reason for Referral * Radiology Services (STAT with Interpretation) - Closed Specialty Diagnoses / Procedures Referred By Jud freeman Referred To Contact Radiology Diagnoses Left hand pain Procedures US LEFT DUPLEX UPPER EXTREMITY VEINS Gayla Barker, ANNIE, FLAT FOLDER [address] [place] [address] Phone: tel: fax: Referral ID Status Reason Start Date Expiration Date Visits Re quested Visits Authorized [id number] Closed 10/06/2020 1 1 Reason for Visit * Reason Comments Pain left since last sday when IV was put in pain getting worse Headache Neck Pain Encounter Details Date Type Department Care Team (Late st Contact Info) Description 10/06/2020 2:45 PM CDT Office Visit [facility] - Primary Care - Jessica [address] [place] [address] Gayla Barker APRN, HARSHA [address] [place] [address] Left hand pain (Primary Dx) Discharge Disposition: Discharged to home [...] on file Legal Sex Female 10:27 AM WEB PRODUCTION ASSISTANT Gender Identity Not on file Sexual Orientation Not on file COVID-19 Exposure Response Date Recorded In the last month, have you been in contact with someone who was confirmed or suspected to have Coronavirus / COVID-19? No / Unsure 10/06/2020 12:42 PM CDT documented as of this encounter Last Filed Vital Signs Vital Sign Reading Time Taken Comments Blood Pressure 124/72 10/06/2020 2:31 PM CDT Pulse 108 10/06/2020 2:31 PM CDT Temperature 36.7 ??C (98 ??F) 10/06/2020 2:31 PM CDT Respiratory Rate 18 10/06/2020 2:31 PM CDT Oxygen Saturation 97% 10/06/2020 2:31 PM CDT Inhaled Oxygen Concentration - - Weight 81.6 kg (180 lb) 10/06/2020 2:31 PM CDT Height 157.5 cm (5' 2 ) 10/06/2020 2:31 PM CDT Body Mass Index 32.92 10/06/2020 2:31 PM CDT documented in this encounter Patient Instructions * Patient Instructions* Gayla Barker APN, CNP - 10/06/2020 2:45 PM CDT Venous doppler of left arm. documented in this encounter Progress Notes * Sascha Phoenix CMA - 10/06/2020 2:45 PM CDT Carito Madison, 30 y.o., female is here for Pain (left since last when IV was put in pain getting worse ), Headache, and Neck Pain Medication Refills: Patient reports/denies need for medication refills. Orders Pended: no Requested Prescriptions No prescriptions requested or ordered in this encounter Home Medications Medication Sig Start Date End Date Taking? Authorizing Provider albuterol (ProAir HFA) 108 (90 Base) MCG/ACT Aerosol Solution take 2 Puffs by inhalation every 4 hours as needed for Wheezing or Cough. Patient not taking: Reported on 07/11/2020 12/28/19 Chitra Kaur APN, CNP ALPRAZolam (XANAX) 0.5 MG Tablet Take 1 Tablet by mouth 2 times daily as needed for Anxiety. Patient not taking: Reported on 07/11/2020 05/27/20 Gayla Barker APN, CNP ASPIRIN 81 PO Take by mouth. Yes Isis Sheffield MD Belimumab (Benlysta) 200 MG/ML Solution Auto-injector 11/04/19 Isis Sheffield MD ferrous sulfate 325 (65 Fe) MG Tablet Take 1 Tab by mouth daily. Patient not taking: Reported on 07/11/2020 10/28/19 Gayla Barker APN, CNP hydroxychloroquine (PLAQUENIL) 200 MG Tablet Take 1 Tab by mouth daily. 05/09/19 Yes Gayla Barker APN, CNP metroNIDAZOLE (METROGEL) 0.75 % Gel 1 Applicatorful by Vaginal route nightly. Patient not taking: Reported on 07/11/2020 05/31/20 Jorge Ramirez MD OMEPRAZOLE PO Take 20 mg by mouth. Patient not taking: Reported on 10/06/2020 Emergency, Nurse, RN ondansetron (Zofran) 4 MG Tablet Take 4 mg by mouth every 8 hours as needed for Nausea - 1st line. Patient not taking: Reported on 10/06/2020 Isis Sheffield MD predniSONE (DELTASONE) 5 MG Tablet Take 5 mg by mouth. 11/11/19 11/10/20 Yes Isis Sheffield MD sertraline (ZOLOFT) 25 MG Tablet Take 25 mg by mouth. Patient not taking: Reported on 10/06/2020 06/11/20 Provider, MD Isis There are no discontinued [...] Health Maintenance Due Topic Date Due ??? DTaP/Tdap/Td Immunization (2 - Td or Tdap) 12/29/2018 ??? SARS-COV-2 Immunization (2 - Pfizer 2-dose series) 06/10/2020 Orders Pended: n/a The following BPA's have been addressed with the patient today: N/A * Gayla Barker, PENNY, FLAT FOLDER - 10/06/2020 2:45 PM CDT Subjective: Patient presents with left hand and arm pain that is radiated up into the neck. She denies any specific injury. She did state that she was in the hospital on 09/29 and had an IV in that arm. There isno redness noted. She states that she does occasionally has some headaches. She has been icing the area, taking Tylenol. Patient is 24 weeks . Review of Systems Constitutional: Negative for fever. HENT: Negative. Respiratory: Negative for cough and shortness of breath. Cardiovascular: Negative for chest pain and palpitations. Gastrointestinal: Negative for constipation, diarrhea, nausea and vomiting. Genitourinary: Negative. Musculoskeletal: Left arm and hand. Neurological: Positive for headaches. Psychiatric/Behavioral: Negative. Objective: Physical Exam Vitals and nursing note reviewed. Constitutional: Appearance: Normal appearance. HENT: Head: Normocephalic and atraumatic. Cardiovascular: Rate and Rhythm: Normal rate and regular rhythm. Pulses: Normal pulses. Heart sounds: Normal heart sounds. Pulmonary: Effort: Pulmonary effort is normal. Breath sounds: Normal breath sounds. Musculoskeletal: General: Normal range of motion. Comments: Left arm with no visible dior or redness. Left hand is mildly swollen on the thumb side. Skin: General: Skin is warm and dry. Neurological: Mental Status: She is alert and oriented to person, place, and time. Psychiatric: Mood and Affect: Mood normal. BP 124/72 Pulse 108 Temp 98 ??F (36.7 ??C) Resp 18 Ht 5' 2 (1.575 m) Wt 180 lb (81.6 kg) LMP 02/27/2020 (Approximate) SpO2 97% BMI 32.92 kg/m?? Assessment and Plan See Diagnoses, Orders, Follow-up, and Instructions Encounter Diagnosis Name Primary? Left hand pain Yes Venous doppler of left arm. Continue ice and Tylenol. Documentation for this visit on 10/06/2020 was completed using a template. I have seen and examinedthe patient. Everything documented was personally performed at this visit with the necessary additions, deletions and changes made as appropriate. documented in this encounter Plan of Treatment Not on file documented as of this encounter Results * US LEFT DUPLEX UPPER EXTREMITY VEINS (10/06/2020 4:28 PM CDT) Anatomical Region Laterality Modality vascular Left Ultrasound 10/06/2020 4:41 PM CDT Impressions 10/06/2020 4:44 PM CDT IMPRESSION: ?? No sonographic evidence of DVT in the upper extremity. Distal basilic and brachial veins as well as the cephalic vein are difficult to visualize given small size. Narrative 10/06/2020 4:44 PM CDT EXAM DESCRIPTION: ?? US LEFT DUPLEX UPPER EXTREMITY VEINS HISTORY: ?? Pain in left hand TECHNIQUE: ??Duplex scan was performed using B-mode, spectral Doppler and color-flow Doppler imaging of the ??left upper extremity was performed utilizing real-time ultrasonography. COMPARISON: ?? None FINDINGS: ??Please note, the distal basilic and brachial veins as well as cephalic vein are difficult to visualize given small size. ?? Remainder of the deep venous system from the jugular vein through the antecubital fossa demonstrates normal color Doppler flow and wave forms, normal compressibility where applicable, and normal augmentation. No abnormal fluid collections or masses are identified within the soft tissues. THIS IS AN ELECTRONICALLY VERIFIED FINAL REPORT 10/06/2020 4:41 PM - Electronically signed by Mali Ireland M.D. BG: D: ??10/06/2020 4:41 PM T: ??10/06/2020 4:41 PM Report ID: [id number] Reading Location: ??[id number] Procedure Note Mali Ireland MD - 10/06/2020 EXAM DESCRIPTION: US LEFT DUPLEX UPPER EXTREMITY VEINS HISTORY: Pain in left hand TECHNIQUE: Duplex scan was performed using B-mode, spectral Doppler and color-flow Doppler imaging of the left upper extremity was performed utilizing real-time ultrasonography. COMPARISON: None FINDINGS: Please note, the distal basilic and brachial veins as well as cephalic vein are difficult to visualize given small size. Remainder of the deep venous system from the jugular vein through the antecubital fossa demonstrates normal color Doppler flow and wave forms, normal compressibility where applicable, and normal augmentation. No abnormal fluid collections or masses are identified within the soft tissues. THIS IS AN ELECTRONICALLY VERIFIED FINAL REPORT 10/06/2020 4:41 PM - Electronically signed by Mali Ireland M.D. BG: Report ID: [id number] Reading Location: [id number] IMPRESSION: No sonographic evidence of DVT in the upper extremity. Distal basilic and brachial veins as well as the cephalic vein are difficult to visualize given small size. us Gayla Barker APRN, CNP IMAnamika US ORDERABLES Final Result documented in this encounter Visit Diagnoses Diagnosis Left hand pain- Primary Pain in limb Left hand pain Pain in limb documented in this encounter Additional Health Concerns Assessment Noted Time PHQ-9 Depression Total Score: 0 03/25/19 20 10:00 AM WEB PRODUCTION ASSISTANT documented as of this encounter Care Teams Flat Lock Machine Operator Relationship Specialty Start Date End Date Gayla Barker APRN, HARSHA [address] [place] [address] PCP - General Advanced Practice Nurse 03/25/19 Ct, [facility] [place] [employer] [place] 09/03/19 documented as of this encounter
--- OUTSIDE RECORDS SUMMARY | 2024-02-24 19:44 | XMS_ITS | Encounter Summary ---
Author Organization [facility] Address [address] [place] [address] Phone Care Team Providers Care Cataloging Assistant Name Role Phone Gayla Barker APRN, HARSHA Primary Care Provider Ct, [facility] Home [facility] Unavailable Marianela vailable Reason for Visit * Reason Onset Date Comments Medication Management 03/11/2020 Antibiotic Encounter Details Date Type Department Care Team (Late st Contact Info) Description 03/11/2020 Nurse Triage [facility] Digital Contact Center [address] [place] [id number] Gayla Barker, ANNIE, LUBRICATION WORKER [address] [place] [address] Medication Management (Antibiotic) Social History Tobacco Use Types Packs/Day Years [...] on file Legal Sex Female 10:27 AM RIVETER Gender Identity Not on file Sexual Orientation Not on file COVID-19 Exposure Response Date Recorded In the last month, have you been in contact with someone who was confirmed or suspected to have Coronavirus / COVID-19? No / Unsure 03/10/2020 8:02 AM RIVETER documented as of this encounter Miscellaneous Notes * Telephone Encounter - Marleni Manrique APN, CNP - 03/12/2020 9:33 AM CST I have already addressed this and so has the prescribing PCP. This message will wait for PCP to return to office. TER * Telephone Encounter - Rianna Reno RN - 03/11/2020 8:37 PM CST SITUATION: Medication concerns BACKGROUND: Patient calling to discuss medication concerns. Started taking Clindamycin yesterday and it is causing her to have an upset stomach. Patient has taken this medication in the past, had thesame symptoms from it then. Requesting an alternative antibiotic. Allergies verified. ASSESSMENT: Patient complaining of nausea, emesis, and abdominal pain after taking the clindamycin.Patient has taken it with food, on a full stomach, and still experiences emesis. Patient reports being able to take Azithromycin. Pain (0-10): Abdominal pain 1 hour after taking antibiotic, 10 out of 10 Temp: Afebrile Treatment / Response: Patient also taking a probiotic, tolerating oral intake without difficulty Please see patient message 03/11/20. Provider prefers Clindamycin for patient to take for treatment. Did advise patient to notify if any worsening and would notify the provider of request for alternative. Pharmacy verified. RECOMMENDATION: See care advice and disposition for Guideline First positive answer recorded, all responses to prior questions were negative. If symptoms increase, change or if new symptoms develop, call your HCP or call back. Recommendations were based on caller information and is not a diagnosis. Verified and reviewed all triage information with caller. Reason for Disposition ??? [1] Caller has NON-URGENT medication question about med that PCP prescribed AND [2] triager unable to answer question Protocols used: MEDICATION QUESTION CALL-A-AH TER * Telephone Encounter - Sydney Cornelius RN - 03/11/2020 8:34 PM CST Patient is concerned about her antibiotic making her very ill. She is would like to be connected with dam tender for her provider. Covid triage nurse transferred her to the provider nurse triage line. TER documented in this encounter Plan of Treatment Not on file documented as of this encounter Visit Diagnoses Not on filedocumented in this encounter Additional Health Concerns Assessment Noted Time PHQ-9 Depression Total Score: 0 03/25/19 20 10:00 AM RIVETER documented as of this encounter Care Teams Cataloging Assistant Relationship Specialty Start Date End Date Gayla Barker, DRAW OPERATOR, LUBRICATION WORKER [address] [place] [address] PCP - General Advanced Practice Nurse 03/25/19 Ct[facility] [place] [facility] 09/03/19 documented as of this encounter
--- OUTSIDE RECORDS SUMMARY | 2024-02-24 19:44 | XMS_ITS | Encounter Summary ---
Author Organization [facility] Address [address] [place] [address] Phone Care Team Providers Care Tufter Operator Name Role Phone Gayla Barker APRN, HARSHA Primary Care Provider Ct, [facility] Home [facility] Unavailable Marianela vailable Reason for Visit * Reason Onset Date Comments COVID-19 01/12/2020 Encounter Details Date Type Department Care Team (Late st Contact Info) Description 01/12/2020 Nurse Triage [facility] Digital Contact Center [address] [place] [id number] Gayla Barker APRN, FORGING PRESS SETTER UP [address] [place] [address] COVID-19 Social History Tobacco Use Types Packs/Day [...] on file Legal Sex Female 10:27 AM SWIMMING POOL SERVICER Gender Identity Not on file Sexual Orientation Not on file COVID-19 Exposure Response Date Recorded In the last month, have you been in contact with someone who was confirmed or suspected to have Coronavirus / COVID-19? Yes 01/12/2020 3:13 PM SWIMMING POOL SERVICER documented as of this encounter Miscellaneous Notes * Telephone Encounter - Jessica Pereira RN - 01/12/2020 3:12 PM CST Images from the original note were not included. Travel Screening Question Response In the last month, have you been in contact with someone who was confirmed or suspected to have Coronavirus / COVID-19? Yes Have you had a COVID-19 viral test in the last 14 days? No Do you have any of the following new or worsening symptoms? Cough;Severe headache;Muscle pain;Chills;Joint pain;Fatigue;Shortness of breath;Sore throat (reflux) Have you traveled internationally in the last month? No Travel History Travel since 12/12/19 No documented travel since 12/12/19 Is the caller new to [facility]? No Patients whose symptoms require immediate emergency assistance should be directed to contact 911 for emergency assistance. If the triage nurse is calling 911, notify the dispatcher of the positive screening. Screening Results: COVID-19 LIKE SYMPTOMS State to Patient: Based on your answers, I recommend that you please remain on the line while I transfer you to a triage nurse who can advise you further on next steps. Did patient refuse hadoop consultant? no Travel Screening Question Response In the last month, have you been in contact with someone who was confirmed or suspected to have Coronavirus / COVID-19? Yes Have you had a COVID-19 viral test in the last 14 days? No Do you have any of the following new or worsening symptoms? Cough;Severe headache;Muscle pain;Chills;Joint pain;Fatigue;Shortness of breath;Sore throat (reflux) Have you traveled internationally in the last month? No Travel History Travel since 12/12/19 No documented travel since 12/12/19 Is the caller new to [facility]? 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 See care advice and disposition for Guidelines First positive answer recorded, all responses to prior questions were negative. If symptoms increase, change, or if new symptoms develop, call back or call your HCP. Recommendations were based on caller information and are not a diagnosis. Verified and reviewed all triage information with caller. Patient request for an excuse note: (Per CDC: Employers should not require a positive COVID-19 testresult or a healthcare provider's note for employees who are sick to validate their illness, qualify for sick leave, or to return to work.) o If patient continues to request/need a return to work note, ask them to send a request via [employer] to their provider (you may need to activate a [employer] account with them). You may also route an excuse note request to the provider. Inform the patient that the provider will determine if a note will be sent and let them know that a telephone visit may be required. Caller verbalizes understanding of the above information. JESSICA PEREIRA RN. ??? If patient refuses to speak to a nurse: Please continue to monitor your symptoms and if they get worse, do not hesitate to call us back. We are here 18/09. We recommend you refer to the CDC website regarding guidelines for self- isolation and thank you for calling. JESSICA PEREIRA RN Reason for Disposition ??? [1] COVID-19 diagnosed by positive lab test AND [2] mild symptoms (e.g., cough, fever, others) AND [3] no complications or SOB Protocols used: CORONAVIRUS (COVID-19) DIAGNOSED OR OFAVQUAAT-Q-NG MING POOL SERVICER documented in this encounter Plan of Treatment Not on file documented as of this encounter Visit Diagnoses Not on filedocumented in this encounter Additional Health Concerns Assessment Noted Time PHQ-9 Depression Total Score: 0 03/25/19 20 10:00 AM SWIMMING POOL SERVICER documented as of this encounter Care Teams Tufter Operator Relationship Specialty Start Date End Date Gayla Barker, COMPENSATION ANALYST, FORGING PRESS SETTER UP [address] [place] [address] PCP - General Advanced Practice Nurse 03/25/19 Ct, [facility] [place] [facility] 09/03/19 documented as of this encounter
--- OUTSIDE RECORDS SUMMARY | 2024-02-24 19:44 | XMS_ITS | Encounter Summary ---
Author Organization [facility] Care Team Providers Care Loom Inspector Name Role Phone Gayla Barker URBAN AND REGIONAL PLANNER, AIR CONDITIONING UNIT ASSEMBLER Primary Care Provider Ct, Acute [facility] Home [facility] Unavailable Marianela vailable Encounter Details Date Type Department Care Team (Latest Contact Info) Description 03/10/2020 Travel Social History Tobacco Use Types Packs/Day [...] on file Legal Sex Female 10:27 AM SENIOR MANAGER ASSET PROTECTION Gender Identity Not on file Sexual Orientation Not on file COVID-19 Exposure Response Date Recorded In the last month, have you been in contact with someone who was confirmed or suspected to have Coronavirus / COVID-19? No / Unsure 03/10/2020 8:02 AM SENIOR MANAGER ASSET PROTECTION documented as of this encounter Plan of Treatment Not on file documented as of this encounter Visit Diagnoses Not on filedocumented in this encounter Additional Health Concerns Assessment Noted Time PHQ-9 Depression Total Score: 0 03/25/19 20 10:00 AM SENIOR MANAGER ASSET PROTECTION documented as of this encounter Care Teams Loom Inspector Relationship Specialty Start Date End Date Gayla Barker, URBAN AND REGIONAL PLANNER, AIR CONDITIONING UNIT ASSEMBLER [address] [place] [address] PCP - General Advanced Practice Nurse 03/25/19 Ct, [facility] [place] [facility] 09/03/19 documented as of this encounter
--- OUTSIDE RECORDS SUMMARY | 2024-02-24 19:44 | XMS_ITS | Encounter Summary ---
Author Organization [facility] Address [address] [place] [address] Phone Care Team Providers Care Cigar Tobacco Processing Supervisor Name Role Phone Gayla Barker APRN, PLYWOOD FACTORY WORKER Primary Care Provider Ct, [facility] Home [facility] Unavailable Marianela vailable Encounter Details Date Type Department Care Team (Latest Contact Info) Description 07/03/2020 [facility] Ad[facility] [address] [place] [id number] Ruslan Shea MD Lupoid nephritis (HCC) (Primary Dx); Isolated non-nephrotic proteinuria Social History Tobacco Use Types Packs/Day Years [...] on file Legal Sex Female 10:27 AM COLD STRIP ROLLER Gender Identity Not on file Sexual Orientation Not on file COVID-19 Exposure Response Date Recorded In the last month, have you been in contact with someone who was confirmed or suspected to have Coronavirus / COVID-19? 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
--- OUTSIDE RECORDS SUMMARY | 2024-02-24 19:44 | XMS_ITS | Encounter Summary ---
Author Organization [facility] Address [address] [place] [address] Phone Care Team Providers Care Performing Artist Name Role Phone Gayla Barker APRN, HARSHA Primary Care Provider Ct, Acute Cov[facility] Home [facility] Unavailable Marianela vailable Reason for Visit * Reason Comments Urinary Pain was taking Macrobid but it broke her face out Encounter Details Date Type Department Care Team (Late st Contact Info) Description 09/24/2020 2:00 PM CDT Telemedicine [facility] Primary Care - Jessica [address] [place] [address] Gayla Barker APRN, RELIEF COOK [address] [place] [address] Urinary tract infection without hematuria, site unspecified (Primary Dx) Social History Tobacco Use Types [...] on file Legal Sex Female 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 No / Unsure 09/24/2020 1:58 PM CDT documented as of this encounter Patient Instructions * Patient Instructions* Gayla Barker APN, CNP - 09/24/2020 2:00 PM CDT Kelfex 2x/day Follow up with OB regarding rest of labs documented in this encounter Progress Notes * Dimple Junior RMA - 09/24/2020 2:00 PM CDT Carito Madison is on video visit for Urinary Pain (was taking Macrobid but it broke her face out) . Medications and allergies reconciled with Carito Madison. * Gayla Barker APN, CNP - 09/24/2020 2:00 PM CDT Subjective: Patient was assessed via online video for a duration of 15 minutes.?? Patient verbally consented for this service to be performed and billed. Patient has been treated for urinary tract infection with Macrobid but is having hives and chelitisthat she believes is from the medication. Her OB is out of the office for the weekend and she is wanting to know what she can do. She did have labs done over at [place] today. The urine does show thatshe has a urinary tract infection still. She just took another Macrobid and has broke out in hives.She states that she is miserable. Review of Systems Constitutional: Negative for fever. HENT: Negative. Respiratory: Negative. Cardiovascular: Negative. Gastrointestinal: Positive for abdominal pain. Abdominal distention: Lower. Genitourinary: Positive for dysuria. Musculoskeletal: Negative. Neurological: Negative. Psychiatric/Behavioral: Negative. Objective: Physical Exam Nursing note reviewed. HENT: Head: Normocephalic and atraumatic. Pulmonary: Effort: Pulmonary effort is normal. Neurological: Mental Status: She is alert and oriented to person, place, and time. Psychiatric: Mood and Affect: Mood normal. Video encounter. Physical exam omitted. Assessment and Plan See Diagnoses, Orders, Follow-up, and Instructions Encounter Diagnosis Name Primary? Urinary tract infection without hematuria, site unspecified Yes Kelfex 2x/day Follow up with OB regarding rest of labs Documentation for this visit on 09/24/2020 was completed using a template. I have seen and examinedthe patient. Everything documented was personally performed at this visit with the necessary additions, deletions and changes made as appropriate. documented in this encounter Plan of Treatment Not on file documented as of this encounter Visit Diagnoses Diagnosis Urinary tract infection without hematuria, site unspecified- Primary documented in this encounter Additional Health Concerns Assessment Noted Time PHQ-9 Depression Total Score: 0 03/25/19 20 10:00 AM AGRICULTURAL AND FORESTRY SUPERVISOR documented as of this encounter Care Teams Performing Artist Relationship Specialty Start Date End Date Gayla Barker, EDUCATION CONSULTANT, RELIEF COOK [address] [place] [address] PCP - General Advanced Practice Nurse 03/25/19 Ct, [facility] [place] [facility] 09/03/19 documented as of this encounter
--- OUTSIDE RECORDS SUMMARY | 2024-02-24 19:44 | XMS_ITS | Encounter Summary ---
Author Organization [facility] Address [address] [place] [address] Phone Care Team Providers Care Project Management Instructor Name Role Phone Gayla Barker APRN, BULK FOLDER Primary Care Provider Ct, Acute Covid At Home Care Unavailable Marianela vailable Reason for Visit * Reason Comments Generalized Weakness Chills Fever Runny Nose Shortness of Breath Encounter Details Date Type Department Care Team (Late st Contact Info) Description 12/31/2019 2:20 PM REEL FILM INSPECTOR Office Visit [facility] - Primary Care - [place] [address] [place] [address] Brnady Gaitan APRN, BULK FOLDER [address] [place] [address] Viral URI (Primary Dx) Discharge Disposition: Discharged to home or Selfcare Social History Tobacco Use Types Packs/Day Years Used Date Smoking Tobacco: Some Days Smokeless Tobacco: Never Tobacco Cessation:Ready to Q uit: Yes; Counseling Given: Yes Comments:only when drink Alcohol Use Standard Drinks/Week [...] on file Legal Sex Female 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 Yes 12/31/2019 1:08 PM REEL FILM INSPECTOR documented as of this encounter Last Filed Vital Signs Vital Sign Reading Time Taken Comments Blood Pressure 98/64 12/31/2019 2:14 PM REEL FILM INSPECTOR Pulse 94 12/31/2019 2:14 PM REEL FILM INSPECTOR Temperature 36.8 ??C (98.2 ??F) 12/31/2019 2:14 PM CS T Respiratory Rate 20 12/31/2019 2:14 PM REEL FILM INSPECTOR Oxygen Saturation 97% 12/31/2019 2:14 PM REEL FILM INSPECTOR Inhaled Oxygen Concentration - - Weight 76.2 kg (168 lb) 12/31/2019 2:14 PM REEL FILM INSPECTOR Height 157.5 cm (5' 2 ) 12/31/2019 2:14 PM REEL FILM INSPECTOR Body Mass Index 30.73 12/31/2019 2:14 PM REEL FILM INSPECTOR documented in this encounter Patient Instructions * Patient Instructions* Dimple Junior, RMDianelys - 12/31/2019 2:20 PM REEL FILM INSPECTOR Images from the original note were not included. Pneumonia is a serious lung infection that can make you very sick. There are now two vaccines recommended by the Center for Disease Control and Prevention (CDC) to protect against pneumonia for all patients who are 65 years and older and patients under 65 with certain conditions that put them at a higher risk. Request your pneumonia vaccines at your Primary Care Physician???s office or your localpharmacy. Health Effects of Smoking Health studies have shown that smoking can affect your heart as well as your lungs. Smoking also raises your risk of certain cancers. These are all good reasons to quit. How smoking affects your body Smoking has been linked with many serious illnesses. It also has been shown to increase signs of aging. A few of the health effects of smoking are listed below. Smoking can: ?? Raise your risk of lung cancer, bladder cancer, and cervical cancer ?? Harm your lungs and cause problems with breathing. This includes emphysema and COPD (chronic obstructive pulmonary disease) . ?? Raise blood pressure. This raises your risk for heart attack or stroke. ?? Reduce blood flow. This can slow healing and cause wrinkles. ?? In women, cause bleeding problems, miscarriage, stillbirth, or defects ?? In men, cause problems with erections What happens when you smoke? When you smoke, your breathing becomes shallow. Your lungs fill with smoke. Smoking cigarettes alsofills your body with chemicals, such as nicotine and tar. Here???s how these things affect your body: ?? Smoke. Cigarette smoke contains carbon monoxide. This gas takes the place of oxygen in your blood. ?? Nicotine. This drug raises your blood pressure and heart rate. It reduces blood flow to your arms and legs. And it slows digestion. ?? Tar. Tar is what???s left after tobacco is smoked. This sticky brown material gums up your lungs. This causes less oxygen to get into your bloodstream. ?? Other chemicals. Cigarette smoke contains more than 4,000 other chemicals. They include formaldehyde, arsenic, and lead. Dozens of these chemicals are known to cause cancer. Get help and more information ?? Smokefree.gov. Go to smokefree.gov or call 118-WTHC-SJE (943-509-9531). ?? National Cancer [place] Smoking Quitline. Go to [employer]/wjz-pknl-yce or call 620-79U-OWSQ (756-770-6126). [employer] last reviewed this educational content on 03/29/2016 ?? 5264-5114 [employer]. [address] [place] [address]. All rights reserved. This information is not [...] not prescribed for this condition. Home care If symptoms are severe, rest at home for the first 2 to 3 days. When you resume activity, don't letyourself get too tired. Don't smoke. If you need help stopping, talk with your healthcare provider. Avoid being exposed to cigarette smoke (yours or others???). You may use acetaminophen or ibuprofen to control pain and fever, unless another medicine was prescribed.??If you have chronic liver or kidney disease, have ever had a stomach ulcer or gastrointestinal bleeding, or are taking blood-thinning medicines, talk with your healthcare provider before usingthese medicines. Aspirin should never be given to anyone under 18 years of age who is ill with a viral infection or fever. It may cause severe liver or brain damage. Your appetite may be poor, so a light diet is fine. Stay well hydrated by drinking 6 to 8 glasses of fluids per day (water, soft drinks, juices, tea, or soup). Extra fluids will help loosen secretions in the nose and lungs. Ibpp-ask-qdooixu cold medicines will not shorten the length of time you???re sick, but they may be helpful for the following symptoms: cough, sore throat, and nasal and sinus congestion. If you take prescription medicines, ask your healthcare provider or pharmacist which kzsj-wxm-vwccdah medicines are safe to use. (Note: Don't use decongestants if you have high blood pressure.) Follow-up care Follow up with your healthcare provider, or as advised. When to seek medical advice Call your healthcare provider right away if any of these occur: Cough with lots of colored sputum (mucus) Severe headache; face, neck, or ear pain Difficulty??swallowing??due to throat pain Fever of 100.4??F (38??C) or higher, or as directed by your healthcare provider Call 911 Call 911 if any of these occur: Chest pain, shortness of breath, wheezing, or difficulty breathing Coughing up blood Very severe pain with swallowing, especially if it goes along with a muffled voice [employer] last reviewed this educational content on 07/27/2017 ?? 4338-3771 [employer]. [address] [place] [address], [place] [address]. All rights reserved. This information is not intended as a substitute for professional medical care. Always follow your healthcare professional's instructions. Recommended use of flonase nasal spray Go home and rest Drink plenty of fluids. FILM INSPECTOR FILM INSPECTOR FILM INSPECTOR FILM INSPECTOR documented in this encounter Progress Notes * Dimple Junior RMA - 12/31/2019 2:20 PM CST Carito Rausch was provided education materials regarding smoking cessation as noted on the AfterVisit Summary. Counseling Given and Ready to Quit Ivey are updated in the Social History. FILM INSPECTOR * Brandy Gaitan APN, CNP - 12/31/2019 2:20 PM CST Subjective: Carito Rausch is a 29 y.o. female in the office today for continued fatigue and dyspnea. Symptoms started 6 days ago Severity of symptoms is moderate Associated symptoms include fever 5-6 days ago, cough, dyspnea a few days ago that is improving. Dyspnea is worse with lying down. Patient is currently taking over the counter nothing for the symptoms. Smoker: current everyday smoker. Past, family, or social history was noted She is on prednisone and is taking infusions for lupus. Patient is concerned about her weakened immune system. She states that albuterol makes her jittery and does not want to be prescribed any. Review of Systems Constitutional: Positive for activity change (decreased), appetite change (no appetite), fatigue and fever (4 days ago.). HENT: Positive for congestion and rhinorrhea. Negative for sore throat. Loss taste and smell today. Respiratory: Positive for cough (dry cough that was yesterday only) and shortness of breath (constant with and without activity). Negative for chest tightness. Cardiovascular: Negative for chest pain. Gastrointestinal: Positive for diarrhea and nausea. Neurological: Negative for headaches. Objective: Physical Exam Vitals signs and nursing note reviewed. Constitutional: General: She is not in acute distress. Appearance: Normal appearance. She is normal weight. She is not ill-appearing. HENT: Head: Normocephalic and atraumatic. Right Ear: Tympanic membrane normal. Left Ear: Tympanic membrane normal. Nose: Congestion present. Mouth/Throat: Mouth: Mucous membranes are moist. Neck: Musculoskeletal: Normal range of motion and neck supple. No muscular tenderness. Cardiovascular: Rate and Rhythm: Normal rate and regular rhythm. Pulses: Normal pulses. Heart sounds: Normal heart sounds. Pulmonary: Effort: Pulmonary effort is normal. No respiratory distress. Breath sounds: Normal breath sounds. Lymphadenopathy: Cervical: No cervical adenopathy. Skin: General: Skin is warm and dry. Neurological: Mental Status: She is alert and oriented to person, place, and time. Mental status is at baseline. Psychiatric: Mood and Affect: Mood normal. Behavior: Behavior normal. Thought Content: Thought content normal. Judgment: Judgment normal. Assessment and Plan 1. Viral URI Patient advised to start flonase nasal spray daily. Discussed her wanting another COVID test and she is aware that testing should be 14 days apart per [facility] and [facility] guidelines. She was concerned that she is not all better and discussed that there are many respiratory viruses other than COVID and influenza and that these viruses are taking greater than 10 days to recover. She is to increase PO intake and rest as much as possible. AVS from today was printed, discussed with patient/family and given to patient/family FILM INSPECTOR * Dimple Junior Dianelys - 12/31/2019 2:20 PM CST Carito Ivory Shalom, 29 y.o., female is here for Generalized Weakness, Chills, Fever, Runny Nose, and Shortness of Breath Medication Refills: Patient reports/denies need for medication [...] needed for Anxiety. 11/14/19 Yes Gayla Barker APN, CNP azithromycin (Zithromax Z-Maximilian) 250 MG Tablet 2 tab(s) daily for 1 day, then 1 tab(s) daily for days2-5. 12/28/19 Yes Chitra Kaur APN, CNP Belimumab (Benlysta) 200 MG/ML Solution Auto-injector 11/04/19 Yes Isis Sheffield MD diclofenac sodium (VOLTAREN) 1 % Gel APPLY 2 GRAMS TOPICALLY TO ARTHRITIS JOINTS 3 TIMES A DAY NEEDED 12/11/19 Yes Isis Sheffield MD ferrous sulfate 325 (65 Fe) MG Tablet Take 1 Tab by mouth daily. 10/28/19 Yes Gayla Barker APN, CNP hydroxychloroquine (PLAQUENIL) 200 MG Tablet Take 1 Tab by mouth daily. 05/09/19 Yes Gayla Barker APN, CNP OMEPRAZOLE PO Take 20 mg by mouth. Yes Emergency, Nurse, RN ondansetron (Zofran) 4 MG Tablet Take 4 mg by mouth every 8 hours as needed for Nausea - 1st line. Yes Isis Sheffield MD predniSONE (DELTASONE) 1 MG Tablet Take 1 Tab by mouth daily. Patient not taking: Reported on 12/28/2019 09/05/19 Gayla Barker APN, CNP predniSONE (DELTASONE) 5 MG Tablet Take 10 mg by mouth. 11/11/19 11/10/20 Yes Isis Sheffield MD Medications Discontinued During This Encounter Medication Reason ??? fluconazole (DIFLUCAN) 150 MG Tablet Therapy completed I have reviewed the home medication list with the patient and have reconciled discrepancies. The list is accurate to the best of my knowledge. Smoking Status: Social History Tobacco Use ??? Smoking status: Current Some [...] have been addressed with the patient today: Flu, TDAP and Pneumonia FILM INSPECTOR documented in this encounter Plan of Treatment Not on file documented as of this encounter Visit Diagnoses Diagnosis Viral URI- Primary Acute upper respiratory infections of unspecified site documented in this encounter Additional Health Concerns Assessment Noted Time PHQ-9 Depression Total Score: 0 03/25/19 20 10:00 AM REEL FILM INSPECTOR documented as of this encounter Care Teams Project Management Instructor Relationship Specialty Start Date End Date Gayla Barker, MANAGING PARTNER [employer] MARKETING [place], BULK FOLDER [address] [place] [address] PCP - General Advanced Practice Nurse 03/25/19 Ct, [facility] [place] Digital MEKHI 09/03/19 documented as of this encounter
--- OUTSIDE RECORDS SUMMARY | 2024-02-24 19:44 | XMS_ITS | Encounter Summary ---
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 Yes 01/16/2020 10:58 AM HOSPITAL CLEANING SPECIALIST documented as of this encounter Plan of Treatment Not on file documented as of this encounter Visit Diagnoses Not on filedocumented in this encounter Additional Health Concerns Infection Onset Date Last Indicated Resolved Time COVID - 19 01/16/2020 01/17/2020 01/23/2020 12:5 2 PM HOSPITAL CLEANING SPECIALIST Assessment Noted Time PHQ-9 Depression Total Score: 0 03/25/19 10:00 AM HOSPITAL CLEANING SPECIALIST documented as of this encounter Care Teams Construction Manager Relationship Specialty Start Date End Date Gayla Barker, INTERNAL MEDICINE PHYSICIAN, CATHETER FINISHER AND INSPECTOR [address] [place] [address] PCP - General Advanced Practice Nurse 03/25/19 Ct, [facility] [place] [facility] [place] 09/03/19 documented as of this encounter
--- OUTSIDE RECORDS SUMMARY | 2024-02-24 19:44 | XMS_ITS | Encounter Summary ---
Author Organization [facility] Address [address] [place] [address] Phone Care Team Providers Care Video Game Maker Name Role Phone Gayla Barker APRN, RECREATION THERAPY AIDES TEACHER Primary Care Provider Ct, Acute Covid At Home Care Unavailable Marianela vailable Reason for Referral * Consult, Test & Initiate Treatment (Routine) - Closed Specialty Diagnoses / Procedures Referred By Jud t Referred To Contact Diagnoses Anxiety Gayla Barker APRN, RECREATION THERAPY AIDES TEACHER [address] [place] [address] Phone: tel: fax: [facility] [address] [place] [phone] Phone: tel: fax: Referral ID Status Reason Start Date Expiration Date Visits Re quested Visits Authorized [id number] Closed 03/30/2020 1 1 Scheduling Instructions Carito is being referred to psychiatry or other specialist in patient's insurance network for anxiety. See below for Carito's current medications, allergies and problem list. CURRENT MEDS: Current Outpatient Medications: ? ? albuterol (ProAir HFA) 108 (90 Base) MCG/ACT Aerosol Solution, take 2 Puffs by inhalation every 4 hours as needed for Wheezing or Cough., Disp: 1 Inhaler, Rfl: 0 ? ? ALPRAZolam (XANAX) 0.5 MG Tablet, Take 1 Tab by mouth 2 times daily as needed for Anxiety. (Patient not taking: Reported on 03/30/2020), Disp: 60 Tab, Rfl: 1 ? ? Belimumab (Benlysta) 200 MG/ML Solution Auto-injector, , Disp: , Rfl: ? ? diclofenac sodium (VOLTAREN) 1 % Gel, APPLY 2 GRAMS TOPICALLY TO ARTHRITIS JOINTS 3 TIMES A DAY NEEDED, Disp: , Rfl: ? ? ferrous sulfate 325 (65 Fe) MG Tablet, Take 1 Tab by mouth daily., Disp: 30 Tab, Rfl: 11 ? ? hydroxychloroquine (PLAQUENIL) 200 MG Tablet, Take 1 Tab by mouth daily., Disp: 90 Tab, Rfl: 3 ? ? ipratropium (ATROVENT) 0.03 % Solution, INSTILL 1 SPRAY IN EACH NOSTRIL TWICE DAILY, Disp: , Rfl: ? ? meclizine (ANTIVERT) 25 MG Tablet, Take 1 Tab by mouth 3 times daily as needed for Dizziness., Disp: 30 Tab, Rfl: 0 ? ? OMEPRAZOLE PO, Take 20 mg by mouth., Disp: , Rfl: ? ? ondansetron (Zofran) 4 MG Tablet, Take 4 mg by mouth every 8 hours as needed for Nausea - 1st line., Disp: , Rfl: ? ? predniSONE (DELTASONE) 1 MG Tablet, Take 1 Tab by mouth daily. (Patient not taking: Reported on 03/18/2020), Disp: 90 Tab, Rfl: 3 ? ? predniSONE (DELTASONE) 5 MG Tablet, Take 10 mg by mouth., Disp: , Rfl: ? ? propranolol (INDERAL) 10 MG Tablet, Take 1 Tab by mouth 3 times daily. 1-2 tablets as needed for anxiety up to 3x/day, Disp: 90 Tab, Rfl: 3 No current facility-administered medications for this visit. ALLERGIES: -- Abilify [Aripiprazole] -- Other (see Comments) -- Amoxicillin -- Rash -- Effexor [Venlafaxine] -- Itching -- Lexapro [Escitalopram] -- Other (see Comments) -- Caused seizures -- Medrol [Methylprednisolone] -- Anaphylaxis PROBLEM LIST: Patient Active Problem List: Herpes genitalis Laceration of flexor muscle, fascia and tendon of right little finger at wrist and hand level, initial encounter Pain in joint Myalgia, unspecified site Systemic lupus erythematosus (HCC) Weakness Spontaneous Abdominal pain BMI 29.0-29.9,adult Diarrhea Epigastric pain Gastroesophageal reflux disease Liver lesion Nausea and vomiting 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) Adrenal insufficiency (HCC) Anti-POSTULANT antibodies present Microcytic anemia SHAKER Reason for Visit * Reason Comments Medication Management having problems wi th abilify//talk about xanax// wants referral to Psychiatrist Encounter Details Date Type Department Care Team (Late st Contact Info) Description 03/30/2020 9:15 AM PAN SHAKER Telemedicine [facility] - Primary Care - [place] [address] [place] [phone] Gayla Barker APRN, CNP [address] [place] [address] Anxiety (Primary Dx) Social History [...] on file Legal Sex Female 10:27 AM PAN SHAKER Gender Identity Not on file Sexual Orientation Not on file COVID-19 Exposure Response Date Recorded In the last month, have you been in contact with someone who was confirmed or suspected to have Coronavirus / COVID-19? Yes 03/18/2020 4:51 PM PAN SHAKER documented as of this encounter Patient Instructions * Patient Instructions* Gayla Barker APN, CNP - 03/30/2020 9:15 AM PAN SHAKER Make [id number] appointment for evaluation for ADHD medication. Try propranolol for anxiety. Stop Abilify. SHAKER documented in this encounter Progress Notes * Dimple Junior RMA - 03/30/2020 9:15 AM CST Carito Rausch is on telephone visit for Medication Management (having problems with abilify//talk about xanax// wants referral to Psychiatrist) . Medications and allergies reconciled with Carito Ivory Shalom. SHAKER * Gayla Barker APN, CNP - 03/30/2020 9:15 AM CST Subjective: Patient was assessed via telephone for a duration of 25 minutes.?? Patient verbally consented for this service to be performed and billed. Patient presents for a telephone encounter because she could not get on the video. She states the Abilify caused her and excruciating headache, grinding teeth and nausea and vomiting. She took 2 Toradol and went to bed. She states that she has trying to wean off prednisone but has low cortisol levels still never be able to completely come off of it is having extreme fatigue which is causing increased anxiety. She is also curious about whether she has got ADHD because it runs in the family and her mentioned her possibly having it. She is wanting to start Concerta or Adderall. We discussed some of the had positive drug screen that we would have to do frequent drug screens to restart her Xanax and possibly start her on ADHD medication. I also discussed with her that I would need to do a screening before starting her on any kind of ADHD medication. That I would not just start her on that as a trial. Review of Systems Constitutional: Positive for fatigue. HENT: Negative. Respiratory: Negative for cough and shortness of breath. Cardiovascular: Negative for chest pain and palpitations. Gastrointestinal: Positive for nausea and vomiting. Genitourinary: Negative. Musculoskeletal: Negative. Neurological: Positive for headaches. Grinding teeth. Psychiatric/Behavioral: Negative for dysphoric mood. The patient is nervous/anxious. Objective: Physical Exam Nursing note reviewed. Neurological: Mental Status: She is alert and oriented to person, place, and time. Psychiatric: Mood and Affect: Mood normal. Telephone encounter. Physical exam omitted. Assessment and Plan See Diagnoses, Orders, Follow-up, and Instructions Encounter Diagnosis Name Primary? Anxiety Yes Make [id number] appointment for evaluation for ADHD medication. Try propranolol for anxiety. Stop Abilify. Documentation for this visit on 03/30/2020 was completed using a template. I have seen and examinedthe patient. Everything documented was personally performed at this visit with the necessary additions, deletions and changes made as appropriate. Electronically signed by Gayla Barker, PRORATION CLERK, RECREATION THERAPY AIDES TEACHER at 03/30/2020 10:00 AM PAN SHAKER documented in this encounter Plan of Treatment Scheduled Referrals Name Type Priority Associated Diagnoses Order Schedule EXTERNAL PSYCHIATRY REFERRAL Outpatient Referral Routine Anxiety Expected: 03/30/2020, Expires: 03/30/2021 documented as of this encounter Visit Diagnoses Diagnosis Anxiety- Primary Anxiety state, unspecified documented in this encounter Additional Health Concerns Assessment Noted Time PHQ-9 Depression Total Score: 0 03/25/19 10:00 AM PAN SHAKER documented as of this encounter Care Teams Video Game Maker Relationship Specialty Start Date End Date Gayla Barker, JANITOR SUPERVISOR, RECREATION THERAPY AIDES TEACHER [address] [place] [address] PCP - General Advanced Practice Nurse 03/25/19 Ct, [facility] [place] [employer] [place] 09/03/19 documented as of this encounter
--- OUTSIDE RECORDS SUMMARY | 2024-02-24 19:44 | XMS_ITS | Encounter Summary ---
Author Organization [facility] Care Team Providers Care Rider Ticket Worker Name Role Phone Gayla Barker PRODUCT MARKETING COORDINATOR, DROP WIRE OPERATOR Primary Care Provider Ct, Acute Covid At Home Care Unavailable Marianela vailable Encounter Details Date Type Department Care Team (Latest Contact Info) Description 07/11/2020 Travel Social History Tobacco Use Types Packs/Day [...] on file Legal Sex Female 10:27 AM PHOTOGRAPHER FINISH Gender Identity Not on file Sexual Orientation [...] Total Score: 0 03/25/19 20 10:00 AM PHOTOGRAPHER FINISH documented as of this encounter Care Teams Rider Ticket Worker Relationship Specialty Start Date End Date Gayla Barker, PRODUCT MARKETING COORDINATOR, DROP WIRE OPERATOR [address] [place] [address] PCP - General Advanced Practice Nurse 03/25/19 Ct, [facility] [place] [employer] [place] 09/03/19 documented as of this encounter
--- OUTSIDE RECORDS SUMMARY | 2024-02-24 19:44 | XMS_ITS | Encounter Summary ---
Author Organization [facility] Address [address] [place] [address] Phone Care Team Providers Care Progress Developer Name Role Phone Gayla Barker APRN, HARSHA Primary Care Provider Ct, [facility] Unavailable Marianela vailable Reason for Visit * Reason Comments Aggressive Behavior Anxiety Encounter Details Date Type Department Care Team (Late st Contact Info) Description 03/26/2020 2:30 PM TRACER BULLET SECTION SUPERVISOR Telemedicine [facility] - Primary Care - [place] [address] [place] [address] Gayla Barker APRN, PATTERN SHOP SUPERVISOR [address] [place] [address] Excessive anger (Primary Dx); Anxiety; Reactive depression Social History Tobacco Use Types Packs/Day Years [...] on file Legal Sex Female 10:27 AM TRACER BULLET SECTION SUPERVISOR Gender Identity Not on file Sexual Orientation Not on file COVID-19 Exposure Response Date Recorded In the last month, have you been in contact with someone who was confirmed or suspected to have Coronavirus / COVID-19? Yes 03/18/2020 4:51 PM TRACER BULLET SECTION SUPERVISOR documented as of this encounter Patient Instructions * Patient Instructions* Gayla Barker APN, CNP - 03/26/2020 2:30 PM TRACER BULLET SECTION SUPERVISOR Stop Xanax Start propranolol up to 3 times a day as needed for anxiety. Start Abilify half a tablet daily. Follow-up in 1 month. ER BULLET SECTION SUPERVISOR documented in this encounter Progress Notes * Gayla Barker APN, CNP - 03/26/2020 2:30 PM CST Subjective: Patient was assessed via telephone for a duration of 30 minutes.?? Patient verbally consented for this service to be performed and billed. Patient presents for telephone encounter to discuss anger issues. She states that she has been getting her infusions for her lupus and has it in remission. She states that since she lost the baby several months ago that she has been having problems with anger. She states that should get angry for no apparent reason and just kind of fly off the handle. She states that she was told a long time ago that she was bipolar was put on Abilify as a child but did not like it because she did not function well with that. We have tried Lexapro which gave her seizures and Effexor which gave her hives. Discussed reach trying the Abilify now that she has an adult see if she does better on it. We have referred her to a psychiatrist in the past and she still waiting to get in. Patient is not suicidal or homicidal. She states that other than the anger problems she feels great. She did going yesterday to try to have tubes placed in her ears and they tried to do it without anesthesia and had a difficult time so she has to go back to be placed under anesthesia and have them placed. Patient was wanting to continue with her Xanax. We discussed her positive cocaine on her drug screen. She states that she has never used cocaine but does smoke marijuana. I asked her where she gets her marijuana and she said that she got it from the dispensary. Discussed changing her as needed anxiety medication to propranolol and she was agreeable. Review of Systems Constitutional: Negative for fever. HENT: Positive for ear pain. Respiratory: Negative for cough and shortness of breath. Cardiovascular: Negative for chest pain and palpitations. Gastrointestinal: Negative for constipation, diarrhea, nausea and vomiting. Genitourinary: Negative. Musculoskeletal: Negative. Neurological: Negative for dizziness and headaches. Psychiatric/Behavioral: Positive for agitation and dysphoric mood. The patient is nervous/anxious. Objective: Physical Exam Neurological: Mental Status: She is alert and oriented to person, place, and time. Psychiatric: Mood and Affect: Mood normal. Assessment and Plan See Diagnoses, Orders, Follow-up, and Instructions Encounter Diagnoses Name Primary? Excessive anger Yes ??? Anxiety ??? Reactive depression Stop Xanax Start propranolol up to 3 times a day as needed for anxiety. Start Abilify half a tablet daily. Follow-up in 1 month. Documentation for this visit on 03/26/2020 was completed using a template. I have seen and examinedthe patient. Everything documented was personally performed at this visit with the necessary additions, deletions and changes made as appropriate. ER BULLET SECTION SUPERVISOR documented in this encounter Plan of Treatment Not on file documented as of this encounter Visit Diagnoses Diagnosis Excessive anger- Primary Undersocialized conduct disorder, aggressive type, unspecified Anxiety Anxiety state, unspecified Reactive depression Dysthymic disorder documented in this encounter Additional Health Concerns Assessment Noted Time PHQ-9 Depression Total Score: 0 03/25/19 20 10:00 AM TRACER BULLET SECTION SUPERVISOR documented as of this encounter Care Teams Progress Developer Relationship Specialty Start Date End Date Gayla Barker, BUSINESS SEGMENT MANAGER, PATTERN SHOP SUPERVISOR [address] [place] [address] PCP - General Advanced Practice Nurse 03/25/19 Ct, [facility] [place] [facility] 09/03/19 documented as of this encounter
--- OUTSIDE RECORDS SUMMARY | 2024-02-24 19:44 | XMS_ITS | Encounter Summary ---
Author Organization [facility] Address [address] [place] [address] Phone Care Team Providers Care Ux Manager Name Role Phone Gayla Barker APRN, HARSHA Primary Care Provider Ct, Acute [facility] Home Care Unavailable Marianela vailable Brian Mon MD Primary Care Provider [phone] Reason for Visit * Reason Comments Medication Refill Encounter Details Date Type Department Care Team (Late st Contact Info) Description 04/12/2020 Refill [facility] - Primary Care - [place] [address] [place] [address] Gayla Barker APRN, TUBE SIZER OPERATOR [address] [place] [address] Medication Refill Social History Tobacco [...] on file Legal Sex Female 10:27 AM FASHION CONSULTANT Gender Identity Not on file Sexual Orientation Not on file COVID-19 Exposure Response Date Recorded In the last month, have you been in contact with someone who was confirmed or suspected to have Coronavirus / COVID-19? No / Unsure 04/07/2020 8:36 AM FASHION CONSULTANT documented as of this encounter Plan of Treatment Not on file documented as of this encounter Visit Diagnoses Not on filedocumented in this encounter Additional Health Concerns Infection Onset Date Last Indicated Resolved Time COVID - 19 12/06/2020 12/06/2020 12/26/2020 12:1 6 AM CDT COVID - 19 03/05/2021 03/05/2021 03/05/2021 6:11 PM FASHION CONSULTANT COVID - 19 Confirmed 03/05/2021 03/05/2021 022 12:16 AM FASHION CONSULTANT COVID - 19 11/14/2021 11/18/2021 11/28/2021 12:1 6 AM CDT COVID - 19 01/08/2022 01/08/2022 01/18/2022 12:1 6 AM FASHION CONSULTANT COVID - 19 04/25/2022 04/25/2022 05/05/2022 12:1 6 AM FASHION CONSULTANT COVID - 19 10/17/2023 10/17/2023 10/17/2023 1:56 PM CDT Assessment Noted Time PHQ-9 Depression Total Score: 0 03/25/19 20 10:00 AM FASHION CONSULTANT documented as of this encounter Care Teams Ux Manager Relationship Specialty Start Date End Date Gayla Barker, ANNIE, TUBE SIZER OPERATOR [address] [place] [address] PCP - General Advanced Practice Nurse 03/25/19 Brian Mon MD [address] [place] [address] PCP - General Internal Medicine 10/17/23 Ct, [facility] [place] [facility] [place] 09/03/19 documented as of this encounter
--- OUTSIDE RECORDS SUMMARY | 2024-02-24 19:44 | XMS_ITS | Encounter Summary ---
Author Organization [facility] Address [address] [place] [address] Phone Care Team Providers Care Mac Developer Name Role Phone Gayla Barker APRN, CABLE SPOOLER Primary Care Provider Ct, Acute [facility] Home [facility] Unavailable Marianela vailable Encounter Details Date Type Department Care Team (Latest Contact Info) Description 06/22/2020 [facility] Ad[facility] [address] [place] [address] Provider, Not On File [place] Lupoid nephritis (HCC) (Primary Dx); Proteinuria, unspecified type; Essential hypertension, malignant Social History Tobacco Use Types Packs/Day Years [...] file Legal Sex Female 10:27 AM SENIOR SAS PROGRAMMER Gender Identity Not on file Sexual Orientation [...] Lupoid nephritis (HCC)- Primary Systemic lupus erythematosus Proteinuria, unspecified type Essential hypertension, malignant documented in this encounter Additional Health Concerns Assessment Noted Time PHQ-9 Depression Total Score: 0 03/25/19 20 10:00 AM SENIOR SAS PROGRAMMER documented as of this encounter Care Teams Mac Developer Relationship Specialty Start Date End Date Gayla Barker, WELT STITCHER, CABLE SPOOLER [address] [place] [address] PCP - General Advanced Practice Nurse 03/25/19 Ct, [facility] [place] 09/03/19 documented as of this encounter
--- OUTSIDE RECORDS SUMMARY | 2024-02-24 19:44 | XMS_ITS | Encounter Summary ---
Author Organization [facility] Address [address] [place] [address] Phone Care Team Providers Care Document Analyst Name Role Phone Gayla Barker APRN, VISCOSE CELLAR CHARGE HAND Primary Care Provider Ct, Acute Covid At Home Care Unavailable Marianela vailable Reason for Visit * Reason Comments Abdominal Pain Encounter Details Date Type Department Care Team ([facility] st Contact Info) Description 06/15/2020 12:38 PM CDT - 06/15/2020 1:32 PM CDT Emergency [facility] Emergency [address] [place] [id number] Gayla Jimenez, PAC [address] [place] [address] Abdominal pain in Discharge Disposition: Discharged to home or Selfcare [...] on file Legal Sex Female 10:27 AM LINEMAN Gender Identity Not on file Sexual Orientation Not on file COVID-19 Exposure Response Date Recorded In the last month, have you been in contact with someone who was confirmed or suspected to have Coronavirus / COVID-19? No / Unsure 06/15/2020 12:36 PM CDT documented as of this encounter Last Filed Vital Signs Vital Sign Reading Time Taken Comments Blood Pressure 131/76 06/15/2020 12:35 PM CDT Pulse 98 06/15/2020 12:35 PM CDT Temperature 36.9 ??C (98.5 ??F) 06/15/2020 12:35 PM C DT Respiratory Rate 20 06/15/2020 12:35 PM CDT Oxygen Saturation 100% 06/15/2020 12:35 PM CDT Inhaled Oxygen Concentration - - Weight 76.2 kg (168 lb) 06/15/2020 12:35 PM CDT Height 157.5 cm (5' 2 ) 06/15/2020 12:35 PM CDT Body Mass Index 30.73 06/15/2020 12:35 PM CDT documented in this encounter Discharge Instructions * Discharge Instructions* Gayla Jimenez PAC - 06/15/2020 1:18 PM CDT Please follow up with your obgyn. Return if you have any worsening symptoms or vaginal bleeding. * Attachments The following attachments cannot be sent through Care Everywhere. * Understanding Round Ligament Pain in ([place]iberian) documented in this encounter Medications at Time [...] for Anxiety. 60 Tablet 1 05/27/2020 1 Belimumab (Benlysta) 200 MG/ML Solution Auto-injector [...] Nausea - 1st line. 1 predniSONE (DELTASONE) 5 MG Tablet Take 5 mg by mouth. 11/11/2019 1 Progesterone 200 MG Capsule Take 200 mg by mouth. 05/31/2020 1 sertraline (ZOLOFT) 25 MG Tablet Take 25 mg by mouth. 06/11/2020 1 documented as of this encounter ED Notes * Najma Alvarez RN - 06/15/2020 1:31 PM CDT Patient refused discharge vitals. Patient discharged. Discharge instructions and patient educational material reviewed with patient; questions and concerns addressed; patient verbalizes understanding, using teach back. Patient was given no prescriptions. Patient discharged per ambulatory mode with belongings. * Gayla Jimenez PAC - 06/15/2020 1:14 PM CDT Chief Complaint Patient presents with ??? Abdominal Pain HPI Carito Madison is a 30 y.o. female who presents due to cramping in her LLQ which has been intermittent since Sunday. She states she did pass one blot three days ago. She states 5 days ago she had an ultrasound with her obgyn at [facility] which was normal. She is 7 weeks . She denies any dysuria, fever, vomiting, diarrhea, or constipation. PMH includes lupus, seizures, asthma, and CKD stage 1. She is a former smoker. She denies any illicit drug use. No current facility-administered medications for this encounter. Current Outpatient Medications Medication Sig Dispense Refill ??? albuterol (ProAir HFA) 108 (90 Base) MCG/ACT Aerosol Solution take 2 Puffs by inhalation every 4 hours as needed for Wheezing or Cough. 1 Inhaler 0 ??? ALPRAZolam (XANAX) 0.5 MG Tablet Take 1 Tablet by mouth 2 times daily as needed for Anxiety. 60Tablet 1 ??? Belimumab (Benlysta) 200 MG/ML Solution Auto-injector ??? ferrous sulfate 325 (65 Fe) MG Tablet Take 1 Tab by mouth daily. 30 Tab 11 ??? hydroxychloroquine (PLAQUENIL) 200 MG Tablet Take 1 Tab by mouth daily. 90 Tab 3 ??? metroNIDAZOLE (METROGEL) 0.75 % Gel 1 Applicatorful by Vaginal route nightly. 70 g 0 ??? OMEPRAZOLE PO Take 20 mg by mouth. ??? ondansetron (Zofran) 4 MG Tablet Take 4 mg by mouth every 8 hours as needed for Nausea - 1st line. ??? predniSONE (DELTASONE) 5 MG Tablet Take 5 mg by mouth. Allergies Allergen Reactions ??? Abilify [Aripiprazole] Other (see Comments) ??? Amoxicillin Rash ??? Effexor [Venlafaxine] Itching [...] risk not applicable to this patient. BP 131/76 Pulse 98 Temp 98.5 ??F (36.9 ??C) (Tympanic) Resp 20 Ht 5' 2 (1.575 m) Wt 168 lb (76.2 kg) LMP 02/27/2020 (Approximate) SpO2 100% BMI 30.73 kg/m?? Review of Systems Constitutional: Negative for chills and fever. HENT: Negative for congestion, ear pain and sore throat. Eyes: Negative for pain and discharge. Respiratory: Negative for cough, chest tightness and shortness of breath. Cardiovascular: Negative for chest pain, palpitations and leg swelling. Gastrointestinal: Positive for abdominal pain (LLQ). Negative for abdominal distention, blood in stool, constipation, diarrhea, nausea and vomiting. Genitourinary: Negative for dysuria, frequency and vaginal discharge. Musculoskeletal: Negative for arthralgias and back pain. Skin: Negative for color change and rash. Neurological: Negative for dizziness, weakness, light-headedness and [...] Palpations: Abdomen is soft. Tenderness: There is abdominal tenderness (mild ) in the left lower quadrant. There is no guarding or rebound. Musculoskeletal: General: Normal range of motion. Cervical back: Normal range of motion. Skin: General: Skin is warm and dry. Neurological: Mental Status: She is alert and oriented to person, place, and time. Cranial Nerves: No cranial nerve deficit. Labs Reviewed URINALYSIS REFLEX IF INDICATED BY ABNORMAL RESULTS URINALYSIS REFLEX IF INDICATED BY ABNORMAL RESULTS (Results Pending) Procedures Bedside ultrasound performed by me. heart tones 150s. Imaging Results None MDM Coding Clinical Impression 1. Abdominal pain in Patient declined serum labs and wanted to leave after giving a urine sample stating that she just had an urinalysis with her learning support aide yesterday. She was strongly advised to return if she has any worsening symptoms or vaginal bleeding and to have close f/u with her obgyn. She expressed understanding and agreement to the tx plan. Cosigned by Mohit Saldaña MD at 06/15/2020 2:07 PM CDT * Nicole Drake RN - 06/15/2020 12:50 PM CDT TSERING [place] at bedside to ultrasound patient. * Nicole Drake RN - 06/15/2020 12:40 PM CDT Patient presents to ED room 2. No change in patients condition sine being seen in triage. See triage note. Assessment as noted. Call light within reach. Will continue to monitor. * Lisy Connor RN - 06/15/2020 12:33 PM CDT Patient presents to ED triage with complaint of abdominal cramping on left side radiated to left leg. patient states that she 7 weeks . Patient states that this is her 3rd no livingchildren. documented in this encounter Plan of Treatment Not on file documented as of this encounter Procedures Procedure Name Priority Date/Time Associated Diagnosis Comments URINALYSIS REFLEX IF INDICATED BY ABNORMAL RESULTS STAT 06/15/2020 1:01 PM CDT documented in this encounter Results * URINALYSIS REFLEX IF INDICATED BY ABNORMAL RESULTS (06/15/2020 1:01 PM CDT) SPECIFIC GRAVITY 1.010 1.003 - 1.030 06/15/2020 1:47 PM CDT [facility] URINE PH 8.0 5.0 - 9.0 06/15/2020 1:47 PM CDT [facility] WBC ESTERASE Negative Negative 06/15/2020 1:47 PM CDT [facility] NITRITE Negative Negative 06/15/2020 1:47 PM CDT [facility] PROTEIN, RANDOM URINE Negative Negative 06/15/2020 1:47 PM CDT [facility] URINE GLUCOSE, QUAL Negative Negative 06/15/2020 1:47 PM CDT [facility] URINE KETONES Negative Negative 06/15/2020 1:47 PM CDT [facility] UROBILINOGEN Normal Normal mg/dL 06/15/2020 1:47 PM CDT [facility] URINE BILIRUBIN Negative Negative 1:47 PM CDT [facility] URINE BLOOD Negative Negative pierre/ul 06/15/2020 1:47 PM CDT [facility] URINALYSIS COLOR Yellow 06/16/19 1:47 PM CDT [facility] URINALYSIS CLARITY Clear 06/15/2020 1:47 PM CDT [facility] Urine URINE SPECIMEN / Unknown Non-Phlebotomy Collection / Unknown 06/15/2020 1:01 PM CDT 06/15/2020 1:38 PM CDT us Gayla Carranzan Page PAC URINE ORDERABLES Final Resul t [facility] [address] [place] [address] documented in this encounter Visit Diagnoses Diagnosis Abdominal pain in - Primary Other specified complication of , unspecified as to episode of care documented in this encounter Additional Health Concerns Assessment Noted Time PHQ-9 Depression Total Score: 0 03/25/19 20 10:00 AM LINEMAN documented as of this encounter Care Teams Document Analyst Relationship Specialty Start Date End Date Gayla Barker, RADIO TALK SHOW HOST, VISCOSE CELLAR CHARGE HAND [address] [place] [address] PCP - General Advanced Practice Nurse 03/25/19 Ct, [facility] [place] 09/03/19 documented as of this encounter
--- OUTSIDE RECORDS SUMMARY | 2024-02-24 19:44 | XMS_ITS | Encounter Summary ---
Author Organization [facility] Care Team Providers Care Linter Operator Name Role Phone Gayla Barker SCHOOL CLEANER, MATERIAL MOVER Primary Care Provider Ct, Acute Cov[facility] At Home Care Unavailable Marianela vailable Encounter Details Date Type Department Care Team (Latest Contact Info) Description 12/06/2020 Travel Social History Tobacco Use Types Packs/Day [...] on file Legal Sex Female 10:27 AM VERIFICATION ENGINEER Gender Identity Not on file Sexual [...] Depression Total Score: 0 03/25/19 10:00 AM VERIFICATION ENGINEER documented as of this encounter Care Teams Linter Operator Relationship Specialty Start Date End Date Gayla Barker, SCHOOL CLEANER, MATERIAL MOVER [address] [place] [address] PCP - General Advanced Practice Nurse 03/25/19 Ct, [facility] [place] 09/03/19 documented as of this encounter
--- OUTSIDE RECORDS SUMMARY | 2024-02-24 19:44 | XMS_ITS | Encounter Summary ---
Author Organization [facility] Address [address] [place] [address] Phone Care Team Providers Care Bag Loader Name Role Phone Gayla Barker APRN, APPLIED COMPUTER SCIENCE PROFESSOR Primary Care Provider Ct, Acute Covid At Home Care Unavailable Marianela vailable Reason for Visit * Reason Onset Date Comments Results 03/10/2020 x-ray Encounter Details Date Type Department Care Team (Late st Contact Info) Description 03/10/2020 [facility] [place] [address] [place] [address] Brian Mon MD [address] [place] [address] Results (x-ray) Social History Tobacco Use Types Packs/Day Years [...] on file Legal Sex Female 10:27 AM BROWN SOURER Gender Identity Not on file Sexual Orientation Not on file COVID-19 Exposure Response Date Recorded In the last month, have you been in contact with someone who was confirmed or suspected to have Coronavirus / COVID-19? No / Unsure 03/10/2020 8:02 AM BROWN SOURER documented as of this encounter Miscellaneous Notes * Telephone Encounter - Sara Wasserman RN - 03/10/2020 2:51 PM CST Patient was notified and verbalized understanding. Patient reports she will try the medication and call with any worsening symptoms. Just an FYI N SOURER * Telephone Encounter - Kristin Triplett - 03/10/2020 2:32 PM CST Call received from patient stating returning a call and has a question about antibiotics Call transferred to Nurse Triage Line for further assistance. N SOURER * Telephone Encounter - Leti Gusman RN - 03/10/2020 1:54 PM BROWN SOURER Attempted to call patient with results, no answer at this time. Left message to call back. Also inform patient of other telephone encounter of 03/10/20 please. N SOURER * Telephone Encounter - Leti Gusman RN - 03/10/2020 1:54 PM BROWN SOURER ----- Message from Brian Mon MD sent at 03/10/2020 11:44 AM BROWN SOURER ----- X-ray results are normal. Please call in 1 week if still experiencing mastoid tenderness. N SOURER documented in this encounter Plan of Treatment Not on file documented as of this encounter Visit Diagnoses Not on filedocumented in this encounter Additional Health Concerns Assessment Noted Time PHQ-9 Depression Total Score: 0 03/25/19 10:00 AM BROWN SOURER documented as of this encounter Care Teams Bag Loader Relationship Specialty Start Date End Date Gayla Barker, MAIL HANDLER SORTER, APPLIED COMPUTER SCIENCE PROFESSOR [address] [place] [address] PCP - General Advanced Practice Nurse 03/25/19 Ct, [facility] [place] 09/03/19 documented as of this encounter
--- OUTSIDE RECORDS SUMMARY | 2024-02-24 19:44 | XMS_ITS | Encounter Summary ---
Author Organization [facility] Care Team Providers Care Rehabilitation Medicine Physician Name Role Phone Gayla Barker TELEPHONE STATION INSTALLER, INTERFACE DESIGNER Primary Care Provider Ct, Acute Covid At Home Care Unavailable Marianela vailable Encounter Details Date Type Department Care Team (Latest Contact Info) Description 06/15/2020 Travel Social History Tobacco Use Types Packs/Day [...] on file Legal Sex Female 10:27 AM STATUARY PAINTER Gender Identity Not on file Sexual Orientation [...] Total Score: 0 03/25/19 20 10:00 AM STATUARY PAINTER documented as of this encounter Care Teams Rehabilitation Medicine Physician Relationship Specialty Start Date End Date Gayla Barker, TELEPHONE STATION INSTALLER, INTERFACE DESIGNER [address] [place] [address] PCP - General Advanced Practice Nurse 03/25/19 Ct, [facility] [place] 09/03/19 documented as of this encounter
--- OUTSIDE RECORDS SUMMARY | 2024-02-24 19:44 | XMS_ITS | Encounter Summary ---
Author Organization [facility] Address [address] [facility] [place] [address] Phone Care Team Providers Care Java Oracle Developer Name Role Phone Gayla Barker APRN, SERVICE STATION CASHIER Primary Care Provider Ct[facility] Unavailable Marianela vailable Reason for Visit * Reason Onset Date Comments COVID-19 01/16/2020 covid testing Encounter Details Date Type Department Care Team (Late st Contact Info) Description 01/16/2020 [facility] [address] [place] [address] Gayla Barker APRN, SERVICE STATION CASHIER [address] [place] [address] COVID-19 (covid testing ) Social History Tobacco Use Types Packs/Day Years [...] on file Legal Sex Female 10:27 AM CHILD AND ADOLESCENT PSYCHOLOGIST Gender Identity Not on file Sexual Orientation Not on file COVID-19 Exposure Response Date Recorded In the last month, have you been in contact with someone who was confirmed or suspected to have Coronavirus / COVID-19? Yes 01/16/2020 10:58 AM CHILD AND ADOLESCENT PSYCHOLOGIST documented as of this encounter Miscellaneous Notes * Telephone Encounter - Olamide Daniels RN - 01/16/2020 2:22 PM CST Nurse to triage SITUATION: Patient calling with c/o Chills;Cough;Shortness of breath;Diarrhea (headache-severe whenshe wakes up 10/05) BACKGROUND: lupus and asthma ASSESSMENT: see initial assessment below RECOMMENDATION: Home care advice given and tele health apt given with pcp care team. See care advice and disposition for Guidelines [...] ask them to send a request via Secure Command to their provider (you may need to activate a Secure Command account with them). You may also route an excuse note request to the provider. Inform the patient that the provider will determine if a note will be sent and let them know that a telephone visit may be required. Caller verbalizes understanding of the above information. OLAMIDE DANIELS RN Reason for Disposition ??? [1] COVID-19 infection suspected by caller or triager AND [2] mild symptoms (cough, fever, or others) AND [3] no complications or SOB Answer Assessment - Initial Assessment Questions 1. COVID-19 DIAGNOSIS: Who made your Coronavirus (COVID-19) diagnosis? Was it confirmed by a positive lab test? If not diagnosed by a HCP, ask Are there lots of cases (community spread) where you live? (See public health department website, if unsure) unknown 2. ONSET: When did the COVID-19 symptoms start? 01/13/20 3. WORST SYMPTOM: What is your worst symptom? (e.g., cough, fever, shortness of breath, muscle aches) Cough and body aches 4. COUGH: Do you have a cough? If so, ask: How bad is the cough? Dry and occasionally productive 5. FEVER: Do you have a fever? If so, ask: What is your temperature, how was it measured, and when did it start? 100.3- oral 6. RESPIRATORY STATUS: Describe your breathing? (e.g., shortness of breath, wheezing, unable to speak) Can't get deep breath 7. [id number]: Are you getting better, staying the same or getting worse compared to yesterday? If getting worse, ask, In what way? worse 8. HIGH RISK DISEASE: Do you have any chronic medical problems? (e.g., asthma, heart or lung disease, weak immune system, etc.) Lupus, asthma 9. : Is there any chance you are ? When was your last menstrual period? Denies-01/01/20 10. OTHER SYMPTOMS: Do you have any other symptoms? (e.g., chills, fatigue, headache, loss of smell or taste, muscle pain, sore throat) Protocols used: CORONAVIRUS (COVID-19) DIAGNOSED OR [id number] D AND ADOLESCENT PSYCHOLOGIST * Telephone Encounter - Olamide Daniels RN - 01/16/2020 2:19 PM CST Images from the original note were not included. Travel Screening Question Response In the last month, have you been in contact with someone who was confirmed or suspected to have Coronavirus / COVID-19? Yes Have you had a COVID-19 viral test in the last 14 days? No Do you have any of the following new or worsening symptoms? Chills;Cough;Shortness of breath;Diarrhea Have you traveled internationally in the last month? No Travel History Travel since 12/16/19 No documented travel since 12/16/19 Is the caller new to [facility]? No Patients whose symptoms require immediate emergency [...] further on next steps. Did patient refuse healthcare administration internship? no. OLAMIDE DANIELS RN D AND ADOLESCENT PSYCHOLOGIST * Telephone Encounter - Leti Burr - 01/16/2020 2:08 PM CST Patient call back transfer to [facility] triage nurse Dayna Hicks D AND ADOLESCENT PSYCHOLOGIST * Telephone Encounter - Gilmar De Paz PAC - 01/16/2020 11:10 AM CHILD AND ADOLESCENT PSYCHOLOGIST Please triage symptoms. So we know how to most appropriately test. D AND ADOLESCENT PSYCHOLOGIST * Telephone Encounter - Anneliese Triplett RN - 01/16/2020 10:57 AM CST Patient calling into medication refill line stating she was exposed to last Sunday and her symptoms started two days ago. I did covid screen with her. Previous notes state that she does not have symptoms. She does and is requesting testing. She is getting chemotherapy currently and had treatment on Sunday. D AND ADOLESCENT PSYCHOLOGIST documented in this encounter Plan of Treatment Not on file documented as of this encounter Visit Diagnoses Not on filedocumented in this encounter Additional Health Concerns Assessment Noted Time PHQ-9 Depression Total Score: 0 03/25/19 10:00 AM CHILD AND ADOLESCENT PSYCHOLOGIST documented as of this encounter Care Teams Java Oracle Developer Relationship Specialty Start Date End Date Gayla Barker, LOCATION MAN, SERVICE STATION CASHIER [address] [place] [address] PCP - General Advanced Practice Nurse 03/25/19 Ct[facility] [place] [employer] [facility] 09/03/19 documented as of this encounter
--- OUTSIDE RECORDS SUMMARY | 2024-02-24 19:44 | XMS_ITS | Encounter Summary ---
Author Organization [facility] Address [address] [place] [address] Phone Care Team Providers Care House Piping Inspector Name Role Phone Gayla Barker APRN, VENETIAN BLIND CLEANER Primary Care Provider Ct, [facility] Unavailable Marianela vailable Reason for Visit * Reason Comments Abdominal Pain Encounter Details Date Type Department Care Team (Late st Contact Info) Description 05/30/2020 9:58 PM CDT - 05/31/2020 12:11 AM CDT Emergency [facility] Emergency [address] [place] [address] Jorge Ramirez MD [address] [place] [address] Candidiasis of vulva and vagina Discharge Disposition: Discharged to home or Selfcare [...] file Legal Sex Female 10:27 AM CHILD CARE CENTRE DIRECTOR Gender Identity Not on file Sexual Orientation Not on file COVID-19 Exposure Response Date Recorded In the last month, have you been in contact with someone who was confirmed or suspected to have Coronavirus / COVID-19? No / Unsure 05/30/2020 9:53 PM CDT documented as of this encounter Last Filed Vital Signs Vital Sign Reading Time Taken Comments Blood Pressure 115/87 05/31/2020 12:07 AM CDT Pulse 79 05/31/2020 12:07 AM CDT Temperature 36.7 ??C (98.1 ??F) 05/30/2020 9:54 PM CD T Respiratory Rate 18 05/31/2020 12:07 AM CDT Oxygen Saturation 98% 05/31/2020 12:07 AM CDT Inhaled Oxygen Concentration - - Weight 76.2 kg (168 lb) 05/30/2020 9:54 PM CDT Height 157.5 cm (5' 2 ) 05/30/2020 9:54 PM CDT Body Mass Index 30.73 05/30/2020 9:54 PM CDT documented in this encounter Discharge Instructions * Discharge Instructions* Jorge Ramirez MD - 05/31/2020 12:08 AM CDT Your beta hCG was 6784 * Attachments The following attachments cannot be sent through Care Everywhere. * ,??Adapting to: First Trimester (Norwegian) * Vaginal Infection: Yeast (Candidiasis) (Norwegian) documented in this encounter Medications at Time of Discharge hydroxychloroqui ne (PLAQUENIL) 200 MG Tablet Take 1 Tab by mouth daily. 90 Tab 3 05/09/2019 albuterol (ProAir HFA) 108 (90 Base) MCG/ACT Aerosol SolutionIndicati ons:Bronchioliti s take 2 Puffs by inhalation every 4 hours as needed for Wheezing or Cough. 1 Inhaler 12/28/2019 ALPRAZolam (XANAX) 0.5 MG Tablet Take 1 [...] Take 200 mg by mouth. 05/31/2020 1 documented as of this encounter ED Notes * Samantha Sim RN - 05/31/2020 12:08 AM CDT Patient discharged. Discharge instructions and patient educational material reviewed with patient; questions and concerns addressed; patient verbalizes understanding, using teach back. Patient was given 1 prescriptions. Patient was informed no drinking alcohol, driving or operating heavy machinery while taking narcotics or muscle relaxants. Patient discharged per ambulatory mode with self as responsible republican. * Jorge Ramirez MD - 05/30/2020 10:27 PM CDT Chief Complaint Patient presents with ??? Abdominal Pain Carito Madison is a 30 y.o. female who presents to the emergency department complaining of abdominal cramping. Patient states that she has had 1 week of cramping. She has also noticed a white clumpy discharge from her vagina. She saw her inspector and adjuster golf club head prior to all this. She did not have dischargethat time but apparently she has infection was given a single pill of Diflucan. Since that time things have gotten worse. States she has a history of chronic BV and has been treated with Metrogel foras long as a month in the past before she has sore breasts. She says her last menstrual period was maybe a month ago but she is not sure. Think she is . Past medical history: Illnesses: Lupus, chronic kidney disease stage 1, seizure disorder Medications: Hydroxyurea, prednisone, Allergies: Penicillin, Abilify, Effexor, Lexapro and methylprednisolone Social History: Tobacco: Some day smoker Alcohol: Social Drugs: Marijuana Family History: Denies medical problems in her parents No current facility-administered medications for this encounter. [...] risk not applicable to this patient. BP 115/87 Pulse 79 Temp 98.1 ??F (36.7 ??C) (Tympanic) Resp 18 Ht 5' 2 (1.575 m) Wt 168 lb (76.2 kg) LMP 02/27/2020 (Approximate) SpO2 98% BMI 30.73 kg/m?? Review of Systems Constitutional: Negative for activity change, appetite change, chills, diaphoresis, fatigue and fever. HENT: Negative for dental problem, rhinorrhea and sore throat. Eyes: Negative for visual disturbance. Respiratory: Negative for cough, chest tightness, shortness of breath and wheezing. Cardiovascular: Negative for chest pain, palpitations and leg swelling. Gastrointestinal: Positive for abdominal pain. Negative for constipation, diarrhea, nausea and vomiting. Genitourinary: Positive for vaginal discharge. Negative for difficulty urinating, flank pain, hematuria and urgency. Breast sore Musculoskeletal: Negative for arthralgias, back pain, myalgias, neck pain and neck stiffness. Skin: Negative for color change and rash. Allergic/Immunologic: Negative for food allergies. Neurological: Negative for dizziness, syncope, weakness, light-headedness, numbness and headaches. Psychiatric/Behavioral: Negative for self-injury, sleep disturbance and suicidal ideas. All other systems reviewed and are negative. Physical Exam Vitals and nursing note reviewed. Constitutional: General: She is not in acute distress. Appearance: She is well-developed. She is not diaphoretic. HENT: Head: Normocephalic and atraumatic. Right Ear: External ear normal. Left Ear: External ear normal. Nose: Nose normal. Mouth/Throat: Pharynx: No oropharyngeal exudate. Eyes: General: Right eye: No discharge. Left eye: No discharge. Conjunctiva/sclera: Conjunctivae normal. Pupils: Pupils are equal, round, and reactive to light. Neck: Thyroid: No thyromegaly. Vascular: No JVD. Trachea: No tracheal deviation. Cardiovascular: Rate and [...] or rebound. Hernia: No hernia is present. Genitourinary: Vagina: No foreign body. Vaginal discharge present. No erythema, tenderness or bleeding. Cervix: No cervical motion tenderness. Comments: Thick white discharge consistent with candidiasis Musculoskeletal: General: No tenderness. Normal range of motion. Cervical back: Normal range of motion and neck supple. Lymphadenopathy: Cervical: No cervical adenopathy. Skin: General: Skin is warm and dry. Capillary Refill: Capillary refill takes less than 2 seconds. Coloration: Skin is not pale. Findings: No erythema or rash. Neurological: Mental Status: She is alert and oriented to person, place, and time. Cranial Nerves: No cranial nerve deficit. Motor: No abnormal muscle tone. Coordination: Coordination normal. Deep Tendon Reflexes: Reflexes are normal and symmetric. Psychiatric: Behavior: Behavior normal. Thought Content: Thought content normal. Procedures Imaging Results None [facility] Labs Reviewed URINALYSIS REFLEX IF INDICATED BY ABNORMAL RESULTS - Abnormal; Notable for the following components: Result Value PROTEIN, RANDOM URINE 15 mg/dL (*) URINE KETONES 5 mg/dL (*) All other components within normal limits BASIC METABOLIC PANEL W/ CALCIUM TOTAL - Abnormal; Notable for the following components: CREATININE, BLOOD 0.59 (*) BUN/CREATININE RATIO 22 (*) All other components within normal limits HCG BETA SUBUNIT SERUM QUANT - Abnormal; Notable for the following components: HCG BETA SUBUNIT, QUANT 6,874.00 (*) All other components within normal limits Narrative: HCG Interpretive Reference Ranges Wks of : References Ranges 4 wks [id number] 5 wks [phone] 6 wks [id number] 7 wks [id number] 8 wks [id number] 9 wks [id number] 10 wks [id number] 14 wks [id number] 15 wks [id number] 16 wks [id number] 17 wks [id number] 18 wks [phone] 19 wks [id number] Non- Female: 0-4 CBC WITH AUTO DIFFERENTIAL - Abnormal; Notable for the following components: MPV 9.6 (*) All other components within normal limits UR TRICHOMONAS - Normal COMPLETE BLOOD COUNT (CBC) WITH DIFF Narrative: The following orders were created for panel order Complete Blood Count (CBC) WITH Diff. Procedure Abnormality Status --------- ------ CBC with Auto Differential[[id number]] Abnormal Final result Please view results for these tests on the individual orders. CHLAMYDIA & GC DNA PROBE Narrative: The following orders were created for panel order Chlamydia & GC DNA ([place] or Blue swab). Procedure Abnormality Status --------- ------ CHLAMYDIA & GC DNA PROBE...[[id number]] In process Please view results for these tests on the individual orders. CHLAMYDIA & GC DNA PROBE > 12 POCT URINE HCG () POCT WET YARELI W/ PREPARATIONS Complete Blood Count (CBC) WITH Diff Final Result Basic Metabolic Panel w/ Calcium Total Final Result HCG Beta Subunit Serum Quant Final Result URINALYSIS REFLEX IF INDICATED BY ABNORMAL RESULTS Final Result Ur Trichomonas Final Result Chlamydia & GC DNA ([place] or Blue swab) (Results Pending) CHLAMYDIA & GC DNA PROBE > 12 (Results Pending) Patient with positive urine here. We will get a quant and see where she is at. We will doa bedside ultrasound if she is hard of long. We will ensure that she does not have an ectopic. Willcheck her for sexually transmitted diseases, BV and yeast Bedside ultrasound performed by me shows a gestational sac Patient with obvious yeast infection. We will prescribe some intravaginal metronidazole and she fears that the Diflucan is what causes problem. Discussed following up with Ob to ensure that her is progressing normally. Coding Clinical Impression 1. Candidiasis of vulva and vagina 2. First trimester The patient remained stable throughout their ED stay. My clinical impression was discussed with thepatient/caregiver. Any labs and radiology results were reviewed. Questions were addressed as completely as possible given the information available at present. The therapeutic plan was discussed, inst ructions were given and the importance of primary care follow up was stressed and encouraged. The patient/caregiver voiced understanding of the plan, indications to return, and the need for follow up. New Medications: New Prescriptions METRONIDAZOLE (METROGEL) 0.75 % GEL 1 Applicatorful by Vaginal route nightly. I have advised the patient to follow-up with: Gayla Barker, FAMILY CONSUMER SCIENTIST, VENETIAN BLIND CLEANER [address] [place] [phone] Call in 1 day Dispostion: Discharge * Caty Jimenez RN - 05/30/2020 9:56 PM CDT Pt to ed with c/o white vaginal discharge, pain when urinating, nausea and lower abdominal cramping. Pt states she had a positive test today. documented in this encounter Plan of Treatment Not on file documented as of this encounter Procedures Procedure Name Priority Date/Time Associated Diagnosis Comments CBC WITH AUTO DIFFERENTIAL STAT 05/30/2020 10:55 PM CDT HCG BETA SUBUNIT SERUM QUANT STAT 05/30/2020 10:55 PM CDT COMPLETE BLOOD COUNT (CBC) WITH DIFF STAT 05/30/2020 10:55 PM CDT BASIC METABOLIC PANEL W/ CALCIUM TOTAL STAT 05/30/2020 10:55 PM CDT CHLAMYDIA & GC DNA PROBE > 12 STAT 05/30/2020 10:00 PM CDT URINALYSIS REFLEX IF INDICATED BY ABNORMAL RESULTS STAT 05/30/2020 10:00 PM CDT UR TRICHOMONAS STAT 05/30/2020 10:00 PM CDT CHLAMYDIA & GC DNA PROBE STAT 05/30/2020 10:00 PM CDT POCT URINE HCG () STAT 05/30/2020 10:00 PM CDT documented in this encounter Results * (ABNORMAL) CBC with Auto Differential (05/30/2020 10:55 PM CDT) [facility] WBC 7.68 4.00 - 12.00 10(3)/mcL 05/30/2020 11:07 PM CDT [facility] RBC 4.05 3.80 - 5.30 10(6)/mcL 05/30/2020 11:07 PM CDT [facility] HEMOGLOBIN (HGB) 12.5 12.0 - 15.8 g/dL 05/30/2020 11:07 PM CDT [facility] HEMATOCRIT (HCT) 37.6 36.0 - 47.0 % 05/30/2020 11:07 PM CDT [facility] MCV 92.8 82.0 - 96.0 fL 05/30/2020 11:07 PM CDT [facility] MCH 30.9 26.0 - 34.0 pg 05/30/2020 11:07 PM CDT [facility] MCHC 33.2 31.0 - 36.0 g/dL 05/30/2020 11:07 PM CDT [facility] PLATELET COUNT 280 140 - 440 10(3)/mcL 05/30/2020 11:07 PM CDT [facility] RDW 12.8 11.8 - 15.5 % 05/30/2020 11:07 PM CDT [facility] MPV 9.6(L) 9.7 - 12.4 fL 05/30/2020 11:07 PM CDT [facility] NEUTROPHILS 62.9 47.0 - 73.0 % 05/30/2020 11:07 PM CDT [facility] LYMPHOCYTES 26.7 18.0 - 42.0 % 05/30/2020 11:07 PM CDT [facility] MONOCYTES 8.1 4.0 - 12.0 % 05/30/2020 11:07 PM CDT [facility] EOSINOPHILS 1.8 0.0 - 5.0 % 05/30/2020 11:07 PM CDT [facility] BASOPHILS 0.5 0.0 - 1.0 % 05/30/2020 11:07 PM CDT [facility] ABSOLUTE NEUTROPHILS 4.83 1.60 - 7.70 10(3)/[facility] 05/30/2020 11:07 PM CDT [facility] ABSOLUTE LYMPHOCYTES 2.05 1.30 - 3.20 10(3)/[facility] 05/30/2020 11:07 PM CDT [facility] ABSOLUTE MONOCYTES 0.62 0.20 - 1.00 10(3)/[facility] 05/30/2020 11:07 PM CDT [facility] ABSOLUTE EOSINOPHIL 0.14 0.00 - 0.40 10(3)/[facility] 05/30/2020 11:07 PM CDT [facility] ABSOLUTE BASOPHILS 0.04 0.00 - 0.10 10(3)/[facility] 05/30/2020 11:07 PM CDT [facility] NRBC PER 100 WBC 0 05/31/19 11:07 PM CDT [facility] Blood Venipuncture / Unknown 05/30/2020 10:55 PM CDT 05/30/2020 11:04 PM CDT us Jorge Ramirez MD HEMATOLOGY ORDERABLES Final Res ult [facility] [address] [place] [address] * (ABNORMAL) HCG Beta Subunit Serum Quant (05/30/2020 10:55 PM CDT) HCG BETA SUBUNIT, QUANT 6,874.00(H ) <=5.00 mIU/mL 05/30/2020 11:28 PM CDT [facility] Blood Venipuncture / Unknown 05/30/2020 10:55 PM CDT 05/30/2020 11:04 PM CDT Narrative [facility] - 05/30/2020 11:28 PM CDT HCG Interpretive Reference Ranges Wks of : References Ranges 4 wks [id number] 5 wks [phone] 6 wks [phone] 7 wks [id number] 8 wks [id number] 9 wks [id number] 10 wks [id number] 14 wks [id number] 15 wks [id number] 16 wks [id number] 17 wks [id number] 18 wks [phone] 19 wks [phone] Non- Female: 0-4 us Jorge Ramirez MD CHEMISTRY ORDERABLES Final Resu lt [facility] [address] [place] [address] * (ABNORMAL) Basic Metabolic Panel w/ Calcium Total (05/30/2020 10:55 PM CDT) SODIUM 138 136 - 144 mmol/L 05/30/2020 11:26 PM CDT [facility] POTASSIUM 3.7 3.5 - 5.1 mmol/L 05/30/2020 11:26 PM CDT [facility] CHLORIDE 104 100 - 110 mmol/L 05/30/2020 11:26 PM CDT [facility] CO2, VENOUS 23 22 - 32 mmol/L 05/30/2020 11:26 PM CDT [facility] ANION GAP 14.7 8.0 - 20.0 mmol/L 05/30/2020 11:26 PM CDT [facility] GLUCOSE 96 70 - 99 mg/dL 05/30/2020 11:26 PM CDT [facility] BUN 13 6 - 20 mg/dL 05/30/2020 11:26 PM CDT [facility] CREATININE, BLOOD 0.59(L) 0.60 - 1.10 mg/dL 05/30/2020 11:26 PM CDT [facility] BUN/CREATININE RATIO 22(H) 12 - 20 ratio 05/30/2020 11:26 PM CDT [facility] CALCIUM 9.6 8.9 - 10.3 mg/dL 05/30/2020 11:26 PM CDT [facility] GFR, EST. NONAFRICAN >60 >=60 05/30/2020 11:26 PM CDT [facility] GFR, EST. >60 >=60 05/30/2020 11:26 PM CDT [facility] Comment: Creatinine Clearance is the preferred criteria for selecting drug dose adjustments in renally impaired patients. ??The GFR is provided as additional pertinent clinical information. GFR is reported in mL/min/1.73 sq m. Blood Venipuncture / Unknown 05/30/2020 10:55 PM CDT 05/30/2020 11:04 PM CDT Jorge Ramirez MD CHEMISTRY ORDERABLES Final Resu lt [facility] [address] [place] [address] * CHLAMYDIA & GC DNA PROBE > 12 (05/30/2020 10:00 PM CDT) CHLAMYDIA DNA NEGATIVE NEGATIVE 06/01/2020 11:40 AM CDT [facility] Comment: Presumed negative for C. trachomatis. ??A negative result does not preclude C. trachomatis infection because results are dependent on adequate specimen collection, absence of inhibitors, and sufficient DNA to be detected. This test was performed using Polymerase Chain Reaction (PCR) on the [employer] System. GC DNA NEGATIVE NEGATIVE 06/01/2020 11:40 AM CDT [facility] Comment: Presumed negative for N. gonorrhoeae. ??A negative result does not preclude N. gonorrhoeae infection because results are dependent on adequate specimen collection, absence of inhibitors, and sufficient DNA to be detected. This test was performed using Polymerase Chain Reaction (PCR) on the [employer] System. Other URINE / Unknown Non-Phlebotomy Collection / Unknown 05/30/2020 10:00 PM CDT 05/30/2020 10:31 PM CDT Jorge Ramirez MD MICROBIOLOGY - GENERAL ORDERABL ES Final Result [facility] [address] [place] [address], * Ur Trichomonas (05/30/2020 10:00 PM CDT) Pathologist [facility] TRICHOMONAS (UR) Negative Negative 05/31/19 10:53 PM CDT [facility] Urine Non-Phlebotomy Collection / Unknown 05/30/2020 10:00 PM CDT 05/30/2020 10:31 PM CDT Jorge Ramirez MD URINE ORDERABLES Final Result [facility] [address] [place] [address] * POCT Urine HCG () (05/30/2020 10:00 PM CDT) Pathologist [facility] POC URINE Positive POC URINE CONTROL Aerospace Medicine Physician Pass Urine 05/30/2020 10:0 0 PM CDT Jorge Ramirez MD POINT OF CARE TESTING (MANUAL) Final Result * (ABNORMAL) URINALYSIS REFLEX IF INDICATED BY ABNORMAL RESULTS (05/30/2020 10:00 PM CDT) Pathologist [facility] SPECIFIC GRAVITY 1.020 1.003 - 1.030 05/30/2020 10:50 PM CDT [facility] URINE PH 6.0 5.0 - 9.0 05/30/2020 10:50 PM CDT [facility] WBC ESTERASE Negative Negative 05/30/2020 10:50 PM CDT [facility] NITRITE Negative Negative 05/30/2020 10:50 PM CDT [facility] PROTEIN, RANDOM URINE 15 mg/dL(A) Negative 05/30/2020 10:50 PM CDT [facility] URINE GLUCOSE, QUAL Negative Negative 05/30/2020 10:50 PM CDT [facility] URINE KETONES 5 mg/dL(A) Negative 05/30/2020 10:50 PM CDT [facility] UROBILINOGEN Normal Normal mg/dL 05/30/2020 10:50 PM CDT [facility] URINE BILIRUBIN Negative Negative 10:50 PM CDT [facility] URINE BLOOD Negative Negative pierre/ul 05/30/2020 10:50 PM CDT [facility] URINALYSIS COLOR Yellow 05/31/19 10:50 PM CDT [facility] URINALYSIS CLARITY Slightly Cloudy 05/30/2020 10:50 PM CDT [facility] Urine Non-Phlebotomy Collection / Unknown 05/30/2020 10:00 PM CDT 05/30/2020 10:31 PM CDT Jorge Ramirez MD URINE ORDERABLES Final Result [facility] [address] [place] [address] documented in this encounter Visit Diagnoses Diagnosis Candidiasis of vulva and vagina- Primary First trimester documented in this encounter Additional Health Concerns Assessment Noted Time PHQ-9 Depression Total Score: 0 03/25/19 20 10:00 AM CHILD CARE CENTRE DIRECTOR documented as of this encounter Care Teams House Piping Inspector Relationship Specialty Start Date End Date Gayla Barker, MANUFACTURING QUALITY INSPECTOR, VENETIAN BLIND CLEANER [address] [place] [address] PCP - General Advanced Practice Nurse 03/25/19 Ct, [facility] [place] [employer]KHI 09/03/19 documented as of this encounter
--- OUTSIDE RECORDS SUMMARY | 2024-02-24 19:44 | XMS_ITS | Encounter Summary ---
Author Organization [facility] Address [address] [place] [address] Phone Care Team Providers Care Human Resource Intern Name Role Phone Gayla Barker APRN, RUBBER ATTACHER Primary Care Provider Ct, [facility] Unavailable Marianela vailable Reason for Visit * Reason Comments Diarrhea Encounter Details Date Type Department Care Team (Late st Contact Info) Description 03/30/2020 3:40 PM PUTTER IN - 03/30/2020 4:01 PM PUTTER IN Emergency [facility] Emergency [address] [place] [address] Discharge Disposition: LWBS Social History [...] on file Legal Sex Female 10:27 AM PUTTER IN Gender Identity Not on file Sexual Orientation Not on file COVID-19 Exposure Response Date Recorded In the last month, have you been in contact with someone who was confirmed or suspected to have Coronavirus / COVID-19? No / Unsure 03/30/2020 3:36 PM PUTTER IN documented as of this encounter Last Filed Vital Signs Vital Sign Reading Time Taken Comments Blood Pressure 140/91 03/30/2020 3:35 PM PUTTER IN Pulse 91 03/30/2020 3:35 PM PUTTER IN Temperature 36.9 ??C (98.5 ??F) 03/30/2020 3:35 PM CS T Respiratory Rate 18 03/30/2020 3:35 PM PUTTER IN Oxygen Saturation 98% 03/30/2020 3:35 PM PUTTER IN Inhaled Oxygen Concentration - - Weight - [...] Take 5 mg by mouth. 11/11/2019 1 propranolol (INDERAL) 10 MG Tablet Take 1 Tab by mouth 3 times daily. 1-2 tablets as needed for anxiety up to 3x/day 90 Tab 3 03/26/2020 1 documented as of this encounter ED Notes * Lisy Connor RN - 03/30/2020 3:39 PM CST Patient denying EKG at this time., ER IN * Lisy Connor RN - 03/30/2020 3:33 PM CST Patient presents to ED triage with multiple complains. Patient complaining of nausea and diarrhea after receiving chemo. Patient also complaining that she has been cletching her jaw and causing it hurt. Patient also complaining of left sided chest pain for several days coming and going lasting for 5 minutes coming often . Patient very talkative in triage. ER IN documented in this encounter Plan of Treatment Scheduled Orders Name Type Priority Associated Diagnoses Orde r Schedule EKG 12 LEAD ECG STAT One Time for 1 Occurrences starting 03/30/2020 until 03/30/2020 documented as of this encounter Visit Diagnoses Not on filedocumented in this encounter Additional Health Concerns Assessment Noted Time PHQ-9 Depression Total Score: 0 03/25/19 10:00 AM PUTTER IN documented as of this encounter Care Teams Human Resource Intern Relationship Specialty Start Date End Date Gayla Barker, COLLECTOR OF [place], RUBBER ATTACHER [address] [place] [id number] PCP - General Advanced Practice Nurse 03/25/19 Ct, [facility] [place] [employer]KH[employer] 09/03/19 documented as of this encounter
--- OUTSIDE RECORDS SUMMARY | 2024-02-24 19:44 | XMS_ITS | Encounter Summary ---
Author Organization [facility] Address [address] [place] [address] Phone Care Team Providers Care Certified Registered Nurse Practitioner Name Role Phone Gayla Barker APRN, GASOLINE ENGINE ASSEMBLER Primary Care Provider Ct, Acute Covid At Home Care Unavailable Marianela vailable Reason for Visit * Reason Comments Shortness of Breath Ear Pain bilat ear pain, coul d not tolerate clindamycin, stopped after 4 days Headache Cough Encounter Details Date Type Department Care Team (Late st Contact Info) Description 03/18/2020 4:55 PM VP MARKETING Urgent Care [facility] [address] [place] [address] Nahomi Ontiveros APRN, GASOLINE ENGINE ASSEMBLER [address] [place] [place] [address] Cough (Primary Dx) Discharge Disposition: Discharged to home [...] on file Legal Sex Female 10:27 AM VP MARKETING Gender Identity Not on file Sexual Orientation Not on file COVID-19 Exposure Response Date Recorded In the last month, have you been in contact with someone who was confirmed or suspected to have Coronavirus / COVID-19? Yes 03/18/2020 4:51 PM VP MARKETING documented as of this encounter Last Filed Vital Signs Vital Sign Reading Time Taken Comments Blood Pressure 120/72 03/18/2020 5:01 PM VP MARKETING Pulse 88 03/18/2020 5:01 PM VP MARKETING Temperature 36.6 ??C (97.9 ??F) 03/18/2020 5:01 PM CS T Respiratory Rate - - Oxygen Saturation 98% 03/18/2020 5:01 PM VP MARKETING Inhaled Oxygen Concentration - - Weight - - Height - - Body Mass Index - - documented in this encounter Patient Instructions * Patient Instructions* Nahomi Ontiveros APN, GASOLINE ENGINE ASSEMBLER - 03/18/2020 4:55 PM VP MARKETING Rapid COVID negative COVID PCR sent to lab Will call with results Quarantine until results received and symptom free x 24 hours This is a viral illness and can not be treated with antibiotics as antibiotic do not work on viruses. Antihistamine and decongestant of choice. May use kcqd-znc-krmiaoc generic fluticasone or Nasacort as directed If you use Afrin, do not use for longer than 72 hours. This may cause rebound congestion. Comfort care Tylenol or ibuprofen for fever or body aches. Rest and increase fluids. Cool mist vaporizer See family doctor if symptoms worsen or fail to resolve. MARKETING documented in this encounter Progress Notes * Katharina Briceno RN - 03/18/2020 4:55 PM CST Carito Rausch complains of Shortness of Breath This is a new problem. The current episode started in the past 7 days. Her past medical history is significant for allergies and pneumonia. Ear Pain Headache Cough Her past medical history is significant for pneumonia. Today's ROS MARKETING * Katharina Briceno RN - 03/18/2020 4:55 PM CST Donned appropriate PPE for collection of specimen. Deep Nasal specimen collected, patient tolerated well. MARKETING * Katharina Briceno RN - 03/18/2020 4:55 PM CST Carito Rausch presents for removal of impacted cerumen per order of Nahomi Ontiveros DNP, SALES DEPARTMENT SUPERVISOR-C dated 03/18/20. Impacted wax successfully/unsuccessfully removed from the bilateral ear canal(s) via irrigation only. Patient's tolerated procedure without report of any discomfort expressed during the procedure. Patient education provided on AVS, including teachback for proper ear care and the importance of avoiding self-treatment with cotton swabs and other objects. MARKETING documented in this encounter H&P Notes * Nahomi Ontiveros APN, GASOLINE ENGINE ASSEMBLER - 03/18/2020 4:55 PM CST Subjective: Carito Rausch is a 29 y.o. female in the prompt care today for cough and SHELTON. Symptoms started 2-3 days ago Severity of symptoms is moderate, worsening Associated symptoms include cough, SOB, SHELTON Patient is not currently taking over the counter meds for the symptoms. [place] and flonase daily. Albuterol inhaler and tessalon pearls Smoker: Former Pertinent Past, family, or social history was noted Review of Systems HENT: Positive for ear pain. Respiratory: Positive for cough and shortness of breath. Neurological: Positive for headaches. All other systems reviewed and are negative. Objective: Physical Exam Vitals signs and nursing note reviewed. Constitutional: Appearance: Normal appearance. HENT: Head: Normocephalic and atraumatic. Right Ear: Tympanic membrane is erythematous. Left Ear: Tympanic membrane is erythematous. Mouth/Throat: Lips: [place]. Mouth: Mucous membranes are moist. Neck: Musculoskeletal: Normal range of motion and neck supple. Cardiovascular: Rate and Rhythm: Normal rate and regular rhythm. Pulmonary: Effort: Pulmonary effort is normal. Breath sounds: Normal breath sounds. Musculoskeletal: Normal range of motion. Lymphadenopathy: Cervical: Cervical adenopathy (mild anterior) present. Skin: General: Skin is warm and dry. Neurological: Mental Status: She is alert and oriented to person, place, and time. Psychiatric: Mood and Affect: Mood normal. Behavior: Behavior normal. Thought Content: Thought content normal. Judgment: Judgment normal. Assessment and Plan 1. Cough Rapid COVID negative COVID PCR sent to lab Will call with results Quarantine until results received and symptom free x 24 hours This is a viral illness and can not be treated with antibiotics as antibiotic do not work on viruses. Antihistamine and decongestant of choice. May use imuo-bgd-vvcmnzn generic fluticasone or Nasacort as directed If you use Afrin, do not use for longer than 72 hours. This may cause rebound congestion. Comfort care Tylenol or ibuprofen for fever or body aches. Rest and increase fluids. Cool mist vaporizer See family doctor if symptoms worsen or fail to resolve. - POCT SARS ANTIGEN RAMESH - SARS-COV-2 BY MOLECULAR; Future MARKETING documented in this encounter Plan of Treatment Not on file documented as of this encounter Procedures Procedure Name Priority Date/Time Associated Diagnosis Comments SARS-COV-2 BY MOLECULAR Routine 03/18/2020 5:37 PM VP MARKETING Cough POCT SARS ANTIGEN RAMESH Routine 03/18/2020 5:11 PM VP MARKETING Cough documented in this encounter Results * SARS-COV-2 BY MOLECULAR (03/18/2020 5:37 PM VP MARKETING) SARSCOV2 NOT DETECTED (Referen ce Range for this test is Not Detected ) [facility] THERMOFISHER FAST DX 03/19/2020 5:41 PM VP MARKETING [facility] Comment:This test was perfor med by a PCR method. Other NASOPHARYNGEAL STRUCTURE / Unknown Non-Phlebotomy Collection / Unknown 03/18/2020 5:37 PM VP MARKETING 03/18/2020 5:37 PM VP MARKETING Narrative [facility] - 03/19/2020 5:41 PM VP MARKETING Authorized Fact Sheets about this test for providers and patients are available at: https://www.fda.gov/medical-devices/irivphzus-fymedzoatd-xkdedrw-devices/emergen cy-us e-authorizations us Nahomi Ontiveros APRN, GASOLINE ENGINE ASSEMBLER MICROBIOLOGY - GE NERAL ORDERABLES Final Result [facility] [address] [id number], [place] * POCT SARS ANTIGEN RAMESH (03/18/2020 5:11 PM VP MARKETING) POC SARS ANTIGEN RAMESH Negative Negative POC SARS ANTIGEN RAMESH CONTROL Bindery Cutter Operator Pass Swab NASAL STRUCTURE / Unknown 03/18/2020 5:11 PM VP MARKETING Nahomi Ontiveros APRN, GASOLINE ENGINE ASSEMBLER POINT OF CARE MARY LOU TING (MANUAL) Final Result documented in this encounter Visit Diagnoses Diagnosis Cough- Primary documented in this encounter Additional Health Concerns Assessment Noted Time PHQ-9 Depression Total Score: 0 03/25/19 20 10:00 AM VP MARKETING documented as of this encounter Care Teams Certified Registered Nurse Practitioner Relationship Specialty Start Date End Date Gayla Barker, TITLE CLOSER, GASOLINE ENGINE ASSEMBLER [address] [place] [address] PCP - General Advanced Practice Nurse 03/25/19 Ct, [facility] [place] [facility] [place]KHI 09/03/19 documented as of this encounter
--- OUTSIDE RECORDS SUMMARY | 2024-02-24 19:44 | XMS_ITS | Encounter Summary ---
Author Organization [facility] Address [address] [facility] [place] [address] Phone Care Team Providers Care Budget Engineer Name Role Phone Gayla Barker APRN, CNP Primary Care Provider Ct, Acute Covid At Home Care Unavailable Marianela vailable Reason for Referral * Radiology Services (STAT with Interpretation) - Closed Specialty Diagnoses / Procedures Referred By Contac t Referred To Contact Radiology Diagnoses Left hand pain Procedures US LEFT DUPLEX UPPER EXTREMITY VEINS Gayla Barker APRN, CNP [address] [place] [address] Phone: tel: fax: Referral ID Status Reason Start Date Expiration Date Visits Re quested Visits Authorized [id number] Closed 10/06/2020 1 1 Reason for Visit * Radiology Services (STAT with Interpretation) - Closed Specialty Diagnoses / Procedures Referred By Contac t Referred To Contact Radiology Diagnoses Left hand pain Procedures US LEFT DUPLEX UPPER EXTREMITY VEINS Gayla Barker APRN, CNP [address] [place] [address] Phone: tel: fax: Referral ID Status Reason Start Date Expiration Date Visits Re quested Visits Authorized [id number] Closed 10/06/2020 1 1 Encounter Details Date Type Department Care Team (Latest Contact Info) Description 10/06/2020 3:42 PM CDT - 10/06/2020 11:59 PM CDT Hospital Encounter [facility] Ultrasound [address] [place] [id number] Gayla Barker, CONSULTANT RN, LINE INSPECTOR [address] [place] [address] Discharge Disposition: Discharged to home or Selfcare [...] on file Legal Sex Female 10:27 AM OENOLOGIST Gender Identity Not on file Sexual Orientation Not on file COVID-19 Exposure Response Date Recorded In the last month, have you been in contact with someone who was confirmed or suspected to have Coronavirus / COVID-19? No / Unsure 10/06/2020 12:42 PM CDT documented as of this encounter Medications [...] Take 5 mg by mouth. 11/11/2019 1 sertraline (ZOLOFT) 25 MG Tablet Take 25 mg by mouth. 06/11/2020 1 documented as of this encounter Plan of Treatment Not on file documented as of this encounter Procedures Procedure Name Priority Date/Time Associated Diagnosis Comments US LEFT DUPLEX UPPER EXTREMITY VEINS Stat with Interpretation 10/06/2020 4:28 PM CDT Left hand pain documented in this encounter Results * US LEFT DUPLEX [...] PM T: ??10/06/2020 4:41 PM Report ID: [id number] Reading Location: [id number] Procedure Note Mali Ireland MD - 10/06/2020 [...] by Mali Ireland M.D. BG: Report ID: [id number] Reading Location: [id number] IMPRESSION: No sonographic evidence of DVT in the upper extremity. Distal basilic and brachial veins as well as the cephalic vein are difficult to visualize given small size. us Gayla Barker APRN, CNP IMAnamika US ORDERABLES Final Result documented in this encounter Visit Diagnoses Diagnosis Left hand pain Pain in limb documented in this encounter Additional Health Concerns Assessment Noted Time PHQ-9 Depression Total Score: 0 03/25/19 20 10:00 AM OENOLOGIST documented as of this encounter Care Teams Budget Engineer Relationship Specialty Start Date End Date Gayla Barker APRN, CNP [address] [place] [address] PCP - General Advanced Practice Nurse 03/25/19 Ct, [facility] [place] 09/03/19 documented as of this encounter
--- OUTSIDE RECORDS SUMMARY | 2024-02-24 19:44 | XMS_ITS | Encounter Summary ---
Author Organization [facility] Care Team Providers Care Electric Meter Tester Name Role Phone Gayla Barker SQL SSRS DEVELOPER, REGISTERED VETERINARY TECHNICIAN Primary Care Provider Ct, Acute Covid At Home Care Unavailable Marianela vailable Encounter Details Date Type Department Care Team (Latest Contact Info) Description 09/24/2020 Travel Social History Tobacco Use Types Packs/Day [...] on file Legal Sex Female 10:27 AM NIBBLER OPERATOR Gender Identity Not on file Sexual [...] Total Score: 0 03/25/19 20 10:00 AM NIBBLER OPERATOR documented as of this encounter Care Teams Electric Meter Tester Relationship Specialty Start Date End Date Gayla Barker, SQL SSRS DEVELOPER, REGISTERED VETERINARY TECHNICIAN [address] [place] [address] PCP - General Advanced Practice Nurse 03/25/19 Ct, [facility] [place] 09/03/19 documented as of this encounter
--- OUTSIDE RECORDS SUMMARY | 2024-02-24 19:44 | XMS_ITS | Encounter Summary ---
Author Organization [facility] Address [address] [place] [address] Phone Care Team Providers Care Machine Rope Maker Name Role Phone Gayla Barker APRN, CNP Primary Care Provider Ct, Acute Covid At Home Care Unavailable Marianela vailable Reason for Visit * Reason Onset Date Comments Medication Management 03/26/2020 Carmen narayan Encounter Details Date Type Department Care Team (Late st Contact Info) Description 03/26/2020 Telephone [facility] - Primary Care - [place] [address] [place] [address] Gayla Barker APRN, CNP [address] [place] [address] Medication Management (Propranolol) Social History Tobacco Use Types Packs/Day Years [...] file Legal Sex Female 10:27 AM CLINICAL DOCUMENTATION DEVELOPER Gender Identity Not on file Sexual Orientation Not on file COVID-19 Exposure Response Date Recorded In the last month, have you been in contact with someone who was confirmed or suspected to have Coronavirus / COVID-19? Yes 03/18/2020 4:51 PM CLINICAL DOCUMENTATION DEVELOPER documented as of this encounter Miscellaneous Notes * Telephone Encounter - Pooja Whittington CMA - 03/26/2020 4:12 PM CST Form faxed back to [facility] with correct instructions with success. ICAL DOCUMENTATION DEVELOPER * Telephone Encounter - Gayla Barker APN, CNP - 03/26/2020 3:47 PM CLINICAL DOCUMENTATION DEVELOPER She should be 1-2 tabs up to 3 times a day as needed for anxiety. ICAL DOCUMENTATION DEVELOPER * Telephone Encounter - Pooja Whittington CMA - 03/26/2020 3:42 PM CST Received fax from [facility] regarding propranolol stating 1 tab TID or 1-2 tabs up to TID? Both are noted in sig. Thank you!! Please advise. ICAL DOCUMENTATION DEVELOPER documented in this encounter Plan of Treatment Not on file documented as of this encounter Visit Diagnoses Not on filedocumented in this encounter Additional Health Concerns Assessment Noted Time PHQ-9 Depression Total Score: 0 03/25/19 20 10:00 AM CLINICAL DOCUMENTATION DEVELOPER documented as of this encounter Care Teams Machine Rope Maker Relationship Specialty Start Date End Date Gayla Barker, ANNIE, SEISMOGRAPH OBSERVER [address] [place] [address] PCP - General Advanced Practice Nurse 03/25/19 Ct, [facility] [place] [facility] [place] 09/03/19 documented as of this encounter
--- OUTSIDE RECORDS SUMMARY | 2024-02-24 19:44 | XMS_ITS | Encounter Summary ---
Author Organization [facility] Address [address] [place] [address] Phone Care Team Providers Care Insurance Manager Name Role Phone Gayla Barker APRN, QUILLER HAND Primary Care Provider Ct, Acute Covid At Home Care Unavailable Marianela vailable Encounter Details Date Type Department Care Team (Latest Contact Info) Description 05/04/2020 [facility] [address] [place] [address] Provider, Not On File [place] Lupoid nephritis (HCC) (Primary Dx); Proteinuria, unspecified type; Essential hypertension Social History Tobacco Use Types Packs/Day Years [...] on file Legal Sex Female 10:27 AM ACID PLANT HELPER Gender Identity Not on file Sexual Orientation Not on file COVID-19 Exposure Response Date Recorded In the last month, have you been in contact with someone who was confirmed or suspected to have Coronavirus / COVID-19? No / Unsure 04/07/2020 8:36 AM ACID PLANT HELPER documented as of this encounter Plan of Treatment Not on file documented as of this encounter Visit Diagnoses 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 Proteinuria, unspecified type Essential hypertension Unspecified essential hypertension documented in this encounter Additional Health Concerns Assessment Noted Time PHQ-9 Depression Total Score: 0 03/25/19 10:00 AM ACID PLANT HELPER documented as of this encounter Care Teams Insurance Manager Relationship Specialty Start Date End Date Gayla Barker, HIDE SPREADER, QUILLER HAND [address] [place] [address] PCP - General Advanced Practice Nurse 03/25/19 Ct, [facility] [place] 09/03/19 documented as of this encounter
--- OUTSIDE RECORDS SUMMARY | 2024-02-24 19:44 | XMS_ITS | Encounter Summary ---
Author Organization [facility] Address [address] [place] [address] Phone Care Team Providers Care Health And Human Performance Professor Name Role Phone Gayla Barker APRN, HARSHA Primary Care Provider Ct, Acute Covid At Home Care Unavailable Marianela vailable Brian Mon MD Primary Care Provider [phone] Reason for Visit * Reason Comments Medication Refill Encounter Details Date Type Department Care Team (Late st Contact Info) Description 04/20/2020 Refill [facility] - Primary Care - [place] [address] [place] [address] Gayla Barker APRN, WASHROOM CLEANER [address] [place] [address] Medication Refill Social History Tobacco [...] on file Legal Sex Female 10:27 AM SAP BUSINESS OBJECTS DEVELOPER Gender Identity Not on file Sexual Orientation Not on file COVID-19 Exposure Response Date Recorded In the last month, have you been in contact with someone who was confirmed or suspected to have Coronavirus / COVID-19? No / Unsure 04/07/2020 8:36 AM SAP BUSINESS OBJECTS DEVELOPER documented as of this encounter Plan of Treatment Not on file documented as of this encounter Visit Diagnoses Not on filedocumented in this encounter Additional Health Concerns Infection Onset Date Last Indicated Resolved Time COVID - 19 12/06/2020 12/06/2020 12/26/2020 12:1 6 AM CDT COVID - 19 03/05/2021 03/05/2021 03/05/2021 6:11 PM SAP BUSINESS OBJECTS DEVELOPER COVID - 19 Confirmed 03/05/2021 03/05/2021 022 12:16 AM SAP BUSINESS OBJECTS DEVELOPER COVID - 19 11/14/2021 11/18/2021 11/28/2021 12:1 6 AM CDT COVID - 19 01/08/2022 01/08/2022 01/18/2022 12:1 6 AM SAP BUSINESS OBJECTS DEVELOPER COVID - 19 04/25/2022 04/25/2022 05/05/2022 12:1 6 AM SAP BUSINESS OBJECTS DEVELOPER COVID - 19 10/17/2023 10/17/2023 10/17/2023 1:56 PM CDT Assessment Noted Time PHQ-9 Depression Total Score: 0 03/25/19 20 10:00 AM SAP BUSINESS OBJECTS DEVELOPER documented as of this encounter Care Teams Health And Human Performance Professor Relationship Specialty Start Date End Date Gayla Barker, ANNIE, WASHROOM CLEANER [address] [place] [address] PCP - General Advanced Practice Nurse 03/25/19 Brian Mon MD [address] [place] [address] PCP - General Internal Medicine 10/17/23 Ct, [facility] [place] 09/03/19 documented as of this encounter
--- OUTSIDE RECORDS SUMMARY | 2024-02-24 19:44 | XMS_ITS | Encounter Summary ---
Author Organization [facility] Address [address] [place] [address] Phone Care Team Providers Care Manager Event Name Role Phone Gayla Barker APRN, CNP Primary Care Provider Ct, Acute Covid At Home Care Unavailable Marianela vailable Reason for Visit * Reason Onset Date Comments Results 10/07/2020 ultrasound Encounter Details Date Type Department Care Team (Late st Contact Info) Description 10/07/2020 Telephone [facility] - Primary Care - [place] [address] [place] [address] Gayla Barker APRN, CNP [address] [place] [address] Results (ultrasound) Social History Tobacco Use Types Packs/Day Years [...] on file Legal Sex Female 10:27 AM 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 No / Unsure 10/06/2020 12:42 PM CDT documented as of this encounter Miscellaneous Notes * Telephone Encounter - Leti Gusman RN - 10/07/2020 9:03 AM CDT Phoned patient with ultrasound results. Patient aware and verbalized understanding. No questions for assembly instructions writer. * Telephone Encounter - Leti Gusman RN - 10/07/2020 9:00 AM CDT ----- Message from Gayla Barker APN, HARSHA sent at 10/07/2020 7:50 AM CDT ----- No DVT. Continue conservative measures. documented in this encounter Plan of Treatment Not on file documented as of this encounter Visit Diagnoses Not on filedocumented in this encounter Additional Health Concerns Assessment Noted Time PHQ-9 Depression Total Score: 0 03/25/19 20 10:00 AM ASSISTANT FARM OPERATIONS MANAGER documented as of this encounter Care Teams Manager Event Relationship Specialty Start Date End Date Gayla Barker APRN, HARSHA [address] [place] [address] PCP - General Advanced Practice Nurse 03/25/19 Ct, [facility] [place] [facility] [place] 09/03/19 documented as of this encounter
--- OUTSIDE RECORDS SUMMARY | 2024-02-24 19:44 | XMS_ITS | Encounter Summary ---
Author Organization [facility] Address [address] [place] [address] Phone Care Team Providers Care Starch Crab Name Role Phone Gayla Barker APRN, HARSHA Primary Care Provider Ct, Acute Covid At Home Care Unavailable Marianela vailable Encounter Details Date Type Department Care Team (Late st Contact Info) Description 04/13/2020 Telephone [facility] - Primary Care - [place] [address] [place] [address] Gayla Barker, ANNIE, CONTRACT FORESTER [address] [place] [address] Social History Tobacco Use Types [...] on file Legal Sex Female 10:27 AM PROJECT CREW WORKER Gender Identity Not on file Sexual Orientation Not on file COVID-19 Exposure Response Date Recorded In the last month, have you been in contact with someone who was confirmed or suspected to have Coronavirus / COVID-19? No / Unsure 04/07/2020 8:36 AM PROJECT CREW WORKER documented as of this encounter Miscellaneous Notes * Telephone Encounter - Gayla Barker APN, CNP - 04/13/2020 9:33 AM PROJECT CREW WORKER No she does not need to be called. ECT CREW WORKER * Telephone Encounter - Leti Gusman RN - 04/13/2020 9:29 AM PROJECT CREW WORKER Does patient need called with results? ECT CREW WORKER * Telephone Encounter - Gayla Barker APN, CNP - 04/13/2020 8:58 AM PROJECT CREW WORKER Urine drug screen showed compliance with alprazolam. Also show that she had tramadol and marijuana present. She told me that she would have tramadol and her urine because she went to the ER and they told her that she could take her tramadol that she had at home for the pain that she was having at the time. ECT CREW WORKER documented in this encounter Plan of Treatment Not on file documented as of this encounter Visit Diagnoses Not on filedocumented in this encounter Additional Health Concerns Assessment Noted Time PHQ-9 Depression Total Score: 0 03/25/19 20 10:00 AM PROJECT CREW WORKER documented as of this encounter Care Teams Starch Crab Relationship Specialty Start Date End Date Gayla Barker APRN, CNP [address] [place] [address] PCP - General Advanced Practice Nurse 03/25/19 Ct, [facility] [place] 09/03/19 documented as of this encounter
--- OUTSIDE RECORDS SUMMARY | 2024-02-24 19:45 | XMS_ITS | Encounter Summary ---
Author Organization [facility] Address [address] [place] [address] Phone Care Team Providers Care Financial Professional Name Role Phone Gayla Barker APRN, TRACE CLERK Primary Care Provider Ct, [facility] Unavailable Marianela judahilable Brian Mon MD Primary Care Provider [phone] Encounter Details Date Type Department Care Team (Late st Contact Info) Description 12/27/2019 Telephone [facility] [address] [place] [id number] Provider, None [place] Social History Tobacco Use Types Packs/Day Years Used Date Smoking Tobacco: Never Assessed AUDIT-C Answer Date Recorded Frequency of Alcohol Consumption Monthly or less 03/25/2019 Average Number of Drinks Not on file 020 Frequency of Binge Drinking Not on file 02/27 PHQ-2 Answer Date Recorded PHQ-2 Score 0 03/25/2019 Comments Unknown Sex and Gender Information Value Date Recorded Sex Assigned at Not on file Legal Sex Female 10:27 AM PHYSICIST ASTROPHYSICS Gender Identity Not on file Sexual Orientation Not on file COVID-19 Exposure Response Date Recorded In the last month, have you been in contact with someone who was confirmed or suspected to have Coronavirus / COVID-19? Yes 12/28/2019 8:32 AM PHYSICIST ASTROPHYSICS documented as of this encounter Plan of Treatment Not on file documented as of this encounter Visit Diagnoses Not on filedocumented in this encounter Additional Health Concerns Infection Onset Date Last Indicated Resolved Time COVID - 19 12/25/2019 12/26/2019 12/28/2019 6:29 AM PHYSICIST ASTROPHYSICS COVID - 19 01/16/2020 01/17/2020 01/23/2020 12:5 2 PM PHYSICIST ASTROPHYSICS COVID - 19 03/18/2020 03/18/2020 03/19/2020 6:44 AM PHYSICIST ASTROPHYSICS COVID - 19 12/06/2020 12/06/2020 12/26/2020 12:1 6 AM CDT COVID - 19 03/05/2021 03/05/2021 03/05/2021 6:11 PM PHYSICIST ASTROPHYSICS COVID - 19 Confirmed 03/05/2021 03/05/2021 022 12:16 AM PHYSICIST ASTROPHYSICS COVID - 19 11/14/2021 11/18/2021 11/28/2021 12:1 6 AM CDT COVID - 19 01/08/2022 01/08/2022 01/18/2022 12:1 6 AM PHYSICIST ASTROPHYSICS COVID - 19 04/25/2022 04/25/2022 05/05/2022 12:1 6 AM PHYSICIST ASTROPHYSICS COVID - 19 10/17/2023 10/17/2023 10/17/2023 1:56 PM CDT Assessment Noted Time PHQ-9 Depression Total Score: 0 03/25/19 10:00 AM PHYSICIST ASTROPHYSICS documented as of this encounter Care Teams Financial Professional Relationship Specialty Start Date End Date Gayla Barker APRN, TRACE CLERK [address] [place] [address] PCP - General Advanced Practice Nurse 03/25/19 Brian Mon MD [address] [place] [address] PCP - General Internal Medicine 10/17/23 Ct, [facility] [place] [facility] 09/03/19 documented as of this encounter
--- OUTSIDE RECORDS SUMMARY | 2024-02-24 19:45 | XMS_ITS | Encounter Summary ---
Author Organization [facility] Address [address] [place] [address] Phone Care Team Providers Care Store Lead Name Role Phone Gayla Barker APRN, [place] [employer] [place] LAW CLERK Primary Care Provider Ct, Acute [facility] Home [facility] Unavailable Marianela vailable Encounter Details Date Type Department Care Team (Late st Contact Info) Description 12/28/2019 9:29 AM SOLUTIONS SALES EXECUTIVE - 12/28/2019 11:59 PM SOLUTIONS SALES EXECUTIVE [facility] [place] [address] [place] [address] Chitra Kaur APRN, [place] [employer] [place] LAW CLERK [address] [place] [address] Discharge Disposition: Discharged to home or Selfcare [...] on file Legal Sex Female 10:27 AM SOLUTIONS SALES EXECUTIVE Gender Identity Not on file Sexual Orientation Not on file COVID-19 Exposure Response Date Recorded In the last month, have you been in contact with someone who was confirmed or suspected to have Coronavirus / COVID-19? Yes 12/28/2019 8:32 AM SOLUTIONS SALES EXECUTIVE documented as of this encounter Medications at [...] mouth daily. 30 Tab 11 10/28/2019 1 fluconazole (DIFLUCAN) 150 MG Tablet Take 1 tablet now and repeat in 3 days. 2 Tab 12/03/2019 0 OMEPRAZOLE PO Take 20 mg by mouth. [...] XR CHEST 2 VIEWS Stat with Interpretation 12/28/2019 9:37 AM SOLUTIONS SALES EXECUTIVE Cough documented in this encounter Results * XR CHEST 2 VIEWS (12/28/2019 9:37 AM SOLUTIONS SALES EXECUTIVE) Anatomical Region Laterality Modality Chest N/A Digital Radiogra phy 12/28/2019 9:59 AM SOLUTIONS SALES EXECUTIVE Impressions 12/28/2019 10:01 AM SOLUTIONS SALES EXECUTIVE IMPRESSION: ??Mildly coarsened pulmonary markings, to include redemonstration of mild peribronchial inflammatory changes at the bilateral, right greater than left, bases without focal consolidation; no pleural effusion. Narrative 12/28/2019 10:01 AM SOLUTIONS SALES EXECUTIVE EXAM DESCRIPTION: ?? XR CHEST 2 VIEWS REASON FOR STUDY: ?? Fever, cough, and body aches for greater than 1 week in a smoker. ??History of prior bronchitis. TECHNIQUE: ?? Frontal and lateral radiographic views of the chest acquired. COMPARISON: ?? Chest radiograph 10/01/2019 and 08/28/2019 FINDINGS: ??LUNGS/PLEURA: ??Mildly coarsened pulmonary markings, to include redemonstration of mild peribronchial inflammatory changes at the bilateral, right greater than left, bases without focal consolidation. ??No pleural effusion. ??No pneumothorax. HEART/MEDIASTINUM: ??Heart size is normal. Normal mediastinal and hilar contours. HARDWARE/LINES/TUBES: ??None. BONES: ??No acute abnormality. OTHER: ??No other significant finding. THIS IS AN ELECTRONICALLY VERIFIED FINAL REPORT 12/28/2019 9:59 AM - Electronically signed by Bruce Ramsey M.D. MARIAA: MARIAA D: ??12/28/2019 9:59 AM T: ??12/28/2019 9:59 AM Report ID: [id number] Reading Location: ??[id number] Procedure Note Bruce Ramsey MD - 12/28/2019 EXAM DESCRIPTION: XR CHEST 2 VIEWS REASON FOR STUDY: Fever, cough, and body aches for greater than 1 week in a smoker. History of prior bronchitis. TECHNIQUE: Frontal and lateral radiographic views of the chest acquired. COMPARISON: Chest radiograph 10/01/2019 and 08/28/2019 FINDINGS: LUNGS/PLEURA: Mildly coarsened pulmonary markings, to include redemonstration of mild peribronchial inflammatory changes at the bilateral, right greater than left, bases without focal consolidation. No pleural effusion. No pneumothorax. HEART/MEDIASTINUM: Heart size is normal. Normal mediastinal and hilar contours. HARDWARE/LINES/TUBES: None. BONES: No acute abnormality. OTHER: No other significant finding. THIS IS AN ELECTRONICALLY VERIFIED FINAL REPORT 12/28/2019 9:59 AM - Electronically signed by Bruce Ramsey M.D. MARIAA: MARIAA Report ID: [id number] Reading Location: [place] [address] IMPRESSION: Mildly coarsened pulmonary markings, to include redemonstration of mild peribronchial inflammatory changes at the bilateral, right greater than left, bases without focal consolidation; no pleural effusion. Chitra Kaur APRN, CNP [facility] Final Result documented in this encounter Visit Diagnoses Not on filedocumented in this encounter Additional Health Concerns Assessment Noted Time PHQ-9 Depression Total Score: 0 03/25/19 20 10:00 AM SOLUTIONS SALES EXECUTIVE documented as of this encounter Care Teams Store Lead Relationship Specialty Start Date End Date Gyala Barker APRN, HARSHA [address] [place] [address] PCP - General Advanced Practice Nurse 03/25/19 Ct, [facility] [place] [facility] 09/03/19 documented as of this encounter
--- OUTSIDE RECORDS SUMMARY | 2024-02-24 19:45 | XMS_ITS | Encounter Summary ---
Author Organization [facility] Address [address] [place] [address] Phone Care Team Providers Care Move Coordinator Name Role Phone Gayla Barker APRN, ENTRY OPERATOR Primary Care Provider Ct, Acute Covid At Home Care Unavailable Marianela vailable Reason for Visit * Reason Comments COVID-19 Encounter Details Date Type Department Care Team ([facility] Contact Info) Description 11/25/2019 11:00 AM CDT Telemedicine [facility] Digital Contact Center [address] [place] [address] Chloe Alexis APRN, ENTRY OPERATOR [address] [place] [address] Cough (Primary Dx); Vomiting and diarrhea Discharge Disposition: Discharged to home or Selfcare Social History Tobacco Use Types Packs/Day Years Used Date Smoking Tobacco: Some Days Smokeless Tobacco: Never Comments:about once per week Alcohol Use Standard Drinks/Week Comments Not Currently 0 (1 standard drink = 0.6 oz [...] on file Legal Sex Female 10:27 AM APPLICATION PACKAGING CONSULTANT Gender Identity Not on file Sexual Orientation Not on file COVID-19 Exposure Response Date Recorded In the last month, have you been in contact with someone who was confirmed or suspected to have Coronavirus / COVID-19? No / Unsure 11/25/2019 10:41 AM CDT documented as of this encounter Patient Instructions * Patient Instructions* Chloe Alexis APN, CNP - 11/25/2019 11:00 AM CDT Education (as applicable): - If asymptomatic, patient counseled to monitor symptoms for 14 days since exposure. - If symptomatic, counseled to stay home until these three things have happened: - No fever (100.0 for HCW, 100.4 for lay people) for 24 hours (without the use of medicine) AND - Other symptoms have improved (ie cough, SOB) AND - at least 10 days have passed since your symptoms first appeared - Patient to push fluid intake and take Tylenol PRN for fever, body aches. - If you do not live alone: segregate yourself, use a separate bathroom if possible, sleep in a separate area, have no/limited family time, and the person with symptoms is not to prepare food for others. - If symptoms worsen, the patient was counseled to call their primary care provider office or this triage line. Pt was told to go to ED immediately for onset of severe symptoms. - Patient advised to contact employer now to report positive screen and symptoms. - Per CDC: Employers should not require a positive COVID-19 test result or a healthcare provider???s note for employees who are sick to validate their illness, qualify for sick leave, or to return towork. documented in this encounter Progress Notes * Chloe Alexis APN, CNP - 11/25/2019 11:00 AM CDT Images from the original note were not included. [facility] Chief Complaint Patient presents with ??? COVID-19 HPI Pt reports cough, vomiting and diarrhea, elevated temperature 100.2 since 11/21. Pt is currently undergoing chemotherapy for lupus. No known exposure to COVID- 19. Pt's next chemo infusion is [id number]. Pt denies SOB. She is tolerating fluid intake. Medications reviewed today. Allergies Allergen Reactions ??? Effexor [Venlafaxine] Itching ??? Lexapro [Escitalopram] Other (see Comments) Caused seizures ??? Medrol [Methylprednisolone] Anaphylaxis reports that she has been smoking. She has never used smokeless tobacco. She reports previous alcohol use. She reports previous drug use. Drug: Marijuana. Past Medical History Positives Diagnosis Date ??? Asthma ??? 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 Lupus (systemic lupus erythematosus) (HCC) ??? Seizures (HCC) Review of Systems Constitutional: Positive for fever. Negative for chills. HENT: Positive for sore throat. Negative for congestion. Respiratory: Positive for cough. Negative for chest tightness, shortness of breath and wheezing. Cardiovascular: Negative for chest pain. Gastrointestinal: Positive for diarrhea and vomiting. Negative for nausea. Neurological: Negative for dizziness and headaches. OBJECTIVE: Physical Exam Speaking in complete sentences. No distress or coughing noted during dialogue. Assessment and Plan: ICD-10-CM 1. Cough R05 SARS-COV-2 BY PCR 2. Vomiting and diarrhea R11.10 R19.7 Patient was assessed via telephone for a duration of 0-15 minutes. Patient verbally consented for this service to be performed. Recommended disposition of Home self-care supported by the above documentation. Patient agreed withdisposition. Pt is testing Priority 2. Testing arranged at [facility]. Symptomatic treatment discussed. Signs and symptoms requiring re-evaluation or emergency care discussed. Side effects and risk/benefits of all medications discussed with patient/caregiver. All questions/concerns addressed and answered. Education (as applicable): - If asymptomatic, patient counseled to monitor symptoms for 14 days since exposure. - If symptomatic, counseled to stay home until these three things have happened: - No fever (100.0 for HCW, 100.4 for lay people) for 24 hours (without the use of medicine) AND - Other symptoms have improved (ie cough, SOB) AND - at least 10 days have passed since your symptoms first appeared - Patient to push fluid intake and take Tylenol PRN for fever, body aches. - If you do not live alone: segregate yourself, use a separate bathroom if possible, sleep in a separate area, have no/limited family time, and the person with symptoms is not to prepare food for others. - If symptoms worsen, the patient was counseled to call their primary care provider office or this triage line. Pt was told to go to ED immediately for onset of severe symptoms. - Patient advised to contact employer now to report positive screen and symptoms. - Per CDC: Employers should not require a positive COVID-19 test result or a healthcare provider???s note for employees who are sick to validate their illness, qualify for sick leave, or to return towork. Caller verbalizes understanding of the above information. documented in this encounter Plan of Treatment Not on file documented as of this encounter Visit Diagnoses Diagnosis Cough- Primary Vomiting and diarrhea Vomiting alone documented in this encounter Additional Health Concerns Assessment Noted Time PHQ-9 Depression Total Score: 0 03/25/19 20 10:00 AM APPLICATION PACKAGING CONSULTANT documented as of this encounter Care Teams Move Coordinator Relationship Specialty Start Date End Date Gayla Barker, ANNIE, HARSHA [address] [place] [address] PCP - General Advanced Practice Nurse 03/25/19 Ct, [facility] [place] [facility] 09/03/19 documented as of this encounter
--- OUTSIDE RECORDS SUMMARY | 2024-02-24 19:45 | XMS_ITS | Encounter Summary ---
Author Organization [facility] Care Team Providers Care Digital Solutions Architect Name Role Phone Gayla Barker REFRIGERATION ENGINEERING TEACHER, CAMP COORDINATOR Primary Care Provider Ct, Acute Covid At Home Care Unavailable Mariaenla vailable Encounter Details Date Type Department Care Team (Latest Contact Info) Description 12/26/2019 Travel Social History Tobacco Use Types Packs/Day [...] occupational, technical, or vocational program 11/12/2019 Comments Unknown Sex and Gender Information Value Date Recorded Sex Assigned at Not on file Legal Sex Female 10:27 AM VASCULAR PHYSICIAN Gender Identity Not on file Sexual Orientation Not on file COVID-19 Exposure Response Date Recorded In the last month, have you been in contact with someone who was confirmed or suspected to have Coronavirus / COVID-19? Yes 12/26/2019 1:34 PM CDT documented as of this encounter Plan of Treatment Not on file documented as of this encounter Visit Diagnoses Not on filedocumented in this encounter Additional Health Concerns Infection Onset Date Last Indicated Resolved Time COVID - 19 12/25/2019 12/26/2019 12/28/2019 6:29 AM VASCULAR PHYSICIAN Assessment Noted Time PHQ-9 Depression Total Score: 0 03/25/19 10:00 AM VASCULAR PHYSICIAN documented as of this encounter Care Teams Digital Solutions Architect Relationship Specialty Start Date End Date Gayla Barker, REFRIGERATION ENGINEERING TEACHER, CAMP COORDINATOR [address] [place] [address] PCP - General Advanced Practice Nurse 03/25/19 Ct, [facility] [place] [facility] 09/03/19 documented as of this encounter
--- OUTSIDE RECORDS SUMMARY | 2024-02-24 19:45 | XMS_ITS | Encounter Summary ---
Author Organization [facility] Address [address] [place] [address] Phone Care Team Providers Care Health Club Manager Name Role Phone Gayla Barker APRN, DROP HAMMER MECHANIC Primary Care Provider Ct, Acute Covid At Home Care Unavailable Marianela vailable Reason for Visit * Reason Comments COVID-19 Encounter Details Date Type Department Care Team ([facility] Contact Info) Description 12/20/2019 8:30 PM CDT Telemedicine [facility] Digital Contact Center [address] [place] [address] Brandy Gaitan APRN, DROP HAMMER MECHANIC [address] [place] [address] Systemic lupus erythematosus, unspecified SLE type, unspecified organ involvement status (HCC) (Primary Dx); Cough; Fatigue, unspecified type; Generalized body aches; Loss of taste; Loss of smell; Runny nose Discharge Disposition: Discharged to home or Selfcare [...] on file Legal Sex Female 10:27 AM PRESSURE STEAMER 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 Yes 12/20/2019 7:46 PM CDT documented as of this encounter Progress Notes * Brandy Gaitan, DIGITAL MEDIA ANALYST, DROP HAMMER MECHANIC - 12/20/2019 8:30 PM CDT [facility] Carito is a 29 y/o female who is having runny nose, fatigue, abd pain with diarrhea and vomiting,chills, SHELTON muscle and joint pain, SOB and loss of smell and taste. Symptoms started 12/09. Was tested on 12/08 and was negative. SUBJECTIVE Chief Complaint Patient presents with ??? COVID-19 HPI Allergies Allergen Reactions ??? Effexor [Venlafaxine] Itching ??? Lexapro [Escitalopram] Other (see Comments) Caused seizures ??? Medrol [Methylprednisolone] Anaphylaxis Past Medical History Positives Diagnosis Date ??? Asthma ??? 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 Lupus (systemic lupus erythematosus) (HCC) ??? Seizures (HCC) Social History Substance and Sexual Activity Alcohol Use Not Currently ??? Frequency: Monthly or less Comment: occasionally Social History Tobacco Use Smoking Status Current Some Day Smoker Smokeless Tobacco Never Used Tobacco Comment about once per week Current Outpatient Medications on File Prior to Visit Medication Sig Dispense Refill ??? ALPRAZolam (XANAX) 0.5 MG Tablet Take 1 Tab by mouth 2 times daily as needed for Anxiety. 60 Tab 1 ??? Belimumab (Benlysta) 200 MG/ML Solution Auto-injector ??? ferrous sulfate 325 (65 Fe) MG Tablet Take 1 Tab by mouth daily. 30 Tab 11 ??? fluconazole (DIFLUCAN) 150 MG Tablet Take 1 tablet now and repeat in 3 days. 2 Tab 0 ??? hydroxychloroquine (PLAQUENIL) 200 MG Tablet Take 1 Tab by mouth daily. 90 Tab 3 ??? OMEPRAZOLE PO Take 20 mg by mouth. ??? ondansetron (Zofran) 4 MG Tablet Take 4 mg by mouth every 8 hours as needed for Nausea - 1st line. ??? predniSONE (DELTASONE) 1 MG Tablet Take 1 Tab by mouth daily. (Patient taking differently: Take9 mg by mouth.) 90 Tab 3 ??? predniSONE (DELTASONE) 5 MG Tablet Take 5 mg by mouth. No current facility-administered medications on file prior to visit. Patient Active Problem List Diagnosis ??? Herpes [...] undetermined as to focal or generalized (HCC) Review of Systems Chief complaint and all history documented by ancillary staff were reviewed and verified with additions or corrections as appropriate. SITUATION:?? Patient calling with sxs and positive exposure ?? BACKGROUND:?? pt was tested a week ago but was negative, however has many more sxs now. Hx of asthma. Daily prednisone for lupus. Gume's disease. ?? ASSESSMENT:? Symptom Description / Location: sxs started on but have progressively gotten worse. SOB ismild but pt states has used her inhaler more than usual. VERY fatigued. Pain (0-10): headache comes and goes but is pretty terrible when she has it Temp: denies fever Treatment / Response: mucinex, nyquil cold and flu, OBJECTIVE Speaking in complete sentences. No distress or coughing noted during dialogue. Physical Exam ASSESSMENT/PLAN Patient tested 12/08 and was Negative for COVID. She is away from the area overnight and has been advised to stay where she is and try to sleep. She will go to [facility] tomorrow upon returning to area if she is not feeling better. She is aware that she dpoes not qualify for retesting until 14 days after last Covid test. Occasional nonproductive cough. Nasal and head congestion. She is taking nyquil for her symptoms. Denies SOB. States that it is really hard to breath through her nose because she is so stuffy. She had bronchitis last month and has tessalon pearls that she is using now. Education: -- Patient counseled to remain at home unless symptoms get worse. If symptoms worsen, the patient was counseled to call back to their PCP office (or this triage line if no PCP) or go to ED immediately for severe symptoms. -- If symptomatic or symptoms develop within those 14 days of quarantine, stay home until these three things have happened: - No fever for 24 hours (without the use of [...] is not to prepare food for others. -Caller verbalizes understanding of the above information. Recommended disposition of Home self-care supported by the above documentation. Patient agreed withdisposition. Diagnoses and all orders for this visit: Systemic lupus erythematosus, unspecified SLE type, unspecified organ involvement status (HCC) Cough Fatigue, unspecified type Generalized body aches Loss of taste Loss of smell Runny nose Patient was assessed via telephone for a duration of 0-15 minutes. Patient verbally consented for this service to be performed. - Brandy Gaitan APN, HARSHA documented in this encounter Plan of Treatment Not on file documented as of this encounter Visit Diagnoses Diagnosis Systemic lupus erythematosus, unspecified SLE type, unspecified organ involvement status (HCC)- Primary Cough Fatigue, unspecified type Generalized body aches Loss of taste Disturbances of sensation of smell and taste Loss of smell Disturbances of sensation of smell and taste Runny nose Other diseases of nasal cavity and sinuses documented in this encounter Additional Health Concerns Assessment Noted Time PHQ-9 Depression Total Score: 0 03/25/19 20 10:00 AM PRESSURE STEAMER TENDER documented as of this encounter Care Teams Health Club Manager Relationship Specialty Start Date End Date Gayla Barker, REGIONAL CONSTRUCTION MANAGER, DROP HAMMER MECHANIC [address] [place] [address] PCP - General Advanced Practice Nurse 03/25/19 Ct, [facility] [place] [facility] 09/03/19 documented as of this encounter
--- OUTSIDE RECORDS SUMMARY | 2024-02-24 19:45 | XMS_ITS | Encounter Summary ---
Author Organization [facility] Address [address] 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 Name Role Phone Gayla Barker APRN, HARSHA Primary Care Provider [facility] Unavailable Marianela vailable Reason for Visit * Reason Onset Date Comments COVID-19 12/09/2019 Encounter Details Date Type Department Care Team ([facility] st Contact Info) Description 12/09/2019 Telephone [facility] Digital Contact [facility] [address] [place] [phone] Gayla Barker APRN, [facility] [address] [place] [address] COVID-19 Social History Tobacco Use Types Packs/Day [...] on file Legal Sex Female 10:27 AM [facility] DIRECT[facility] Gender Identity Not on file Sexual Orientation Not on file COVID-19 Exposure Response Date Recorded In the last month, have you been in contact with someone who was confirmed or suspected to have Coronavirus / COVID-19? No / Unsure 12/05/2019 2:01 PM CDT documented as of this encounter Miscellaneous Notes * Telephone Encounter - Nallely Noe RN - 12/09/2019 8:28 AM CDT NURSING NOTE: Patient calling in hopes to change her appointment time for COVID testing. While gathering patient's information to help change her appointment time, patient decided she wanted to keep her 10:50 appointment time in hopes to have her COVID test results sooner then if she rescheduled for after her got off work. No changes made per patient's request. Patient denies having any further questions or needs at this time. documented in this encounter Plan of Treatment Not on file documented as of this encounter Visit Diagnoses Not on filedocumented in this encounter Additional Health Concerns Infection Onset Date Last Indicated Resolved Time COVID - 19 11/25/2019 12/09/2019 12/11/2019 7:53 AM CDT Assessment Noted Time PHQ-9 Depression Total Score: 0 03/25/19 20 10:00 AM [facility] DIRECTOR documented as of this encounter Care Teams Fabric Worker Fitter Relationship Specialty Start Date End Date Gayla Barker, STATISTICIAN THEORETICAL, [facility] [address] [place] [address] PCP - General Advanced Practice Nurse 03/25/19 [facility] [place] [facility] 09/03/19 documented as of this encounter
--- OUTSIDE RECORDS SUMMARY | 2024-02-24 19:45 | XMS_ITS | Encounter Summary ---
Author Organization [facility] Address [address] [place] [address] Phone Care Team Providers Care Office Assistant Name Role Phone Gayla Barker APRN, LITERACY EDUCATION PROFESSOR Primary Care Provider Ct, [facility] Unavailable Marianela vailable Reason for Visit * Reason Comments Vomiting Encounter Details Date Type Department Care Team ([facility] st Contact Info) Description 12/26/2019 1:42 PM CDT - 12/26/2019 4:14 PM CDT Emergency [facility] Emergency [address] [place] [address] Danny Woo MD [address] [place] [address] Nausea with vomiting Discharge Disposition: Discharged to home or Selfcare [...] on file 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 Yes 12/26/2019 1:34 PM CDT documented as of this encounter Last Filed Vital Signs Vital Sign Reading Time Taken Comments Blood Pressure 140/80 12/26/2019 4:13 PM CDT Pulse 80 12/26/2019 4:13 PM CDT Temperature 37.3 ??C (99.2 ??F) 12/26/2019 1:35 PM CD T Respiratory Rate 18 12/26/2019 3:45 PM CDT Oxygen Saturation 100% 12/26/2019 3:45 PM CDT Inhaled Oxygen Concentration - - Weight 74.8 kg (165 lb) 12/26/2019 1:35 PM CDT Height 157.5 cm (5' 2 ) 12/26/2019 1:35 PM CDT Body Mass Index 30.18 12/26/2019 1:35 PM CDT documented in this encounter Discharge Instructions * Discharge Instructions* Danny Woo - 12/26/2019 4:09 PM CDT Images from the original note were not included. Vomiting (Adult) Vomiting is a common symptom that may be due to different causes. These include gastroenteritis ( stomach flu ), food poisoning and gastritis. There are other more serious causes of vomiting which may be hard to diagnose early in the illness. Therefore, it is important to watch for the warning signs listed below. The main danger from repeated vomiting is dehydration. This is due to excess loss of water and minerals from the body. When this occurs, your body fluids must be replaced. Home care ?? If symptoms are severe, rest at home for the next 24 hours. ?? Because your symptoms may be from an infection, wash your hands often and well. If soap and water are not available, use alcohol-based oval or circular glass cutter to keep from spreading the infection to others. ?? Wash your hands for at least 20 seconds. Humming the happy birthday song twice while you wash isan easy way to make sure you've washed for 20 seconds. ?? Wash your hands after using the toilet, before and after preparing food, before eating food, after changing a diaper, cleaning a wound, caring for a sick person, and blowing your nose, coughing, or sneezing. You should also wash your hands after caring for someone who is sick, touching pet food,or treats, and touching an animal, or animal waste. ?? You may use acetaminophen??or NSAID medicines like ibuprofen or naproxen to control fever, unless another medicine was prescribed. If you have chronic liver or kidney disease or ever had a stomachulcer or gastrointestinal bleeding, talk with your doctor before using these medicines. Aspirin should never be used in anyone under 18 years of age who is ill with a fever. It may cause severe liver damage. Don't use NSAID medicines if you are already taking one for another condition (like arthritis) or are on aspirin (such as for heart disease, or after a stroke) ?? Don't use tobacco and or drink alcohol, which may worsen your symptoms. ?? If medicines for vomiting were prescribed, take as directed. ?? Once vomiting stops, then follow these guidelines: During the first 12 to 24 hours follow the diet below: ?? Fruit juices. Apple, grape juice, clear fruit drinks, and electrolyte replacement drinks. ?? Beverages. Soft drinks without caffeine; mineral water (plain or flavored), decaffeinated tea and coffee. ?? Soups. Clear broth and bouillon ?? Desserts. Plain gelatin, ice pops, and fruit juice bars. As you feel better, you may add 6 to 8 ounces of yogurt per day. During the next 24 hours you may add the following to the above: ?? Hot cereal, plain toast, bread, rolls, crackers ?? Plain noodles, rice, mashed potatoes, chicken noodle or rice soup ?? Unsweetened canned fruit such as applesauce, bananas (avoid pineapple and citrus) ?? Limit caffeine and chocolate. No spices or seasonings except salt. During the next 24 hours: Gradually resume a normal diet, as you feel better and your symptoms lessen. Follow-up care Follow up with your healthcare provider, or as advised. When to seek medical advice Call your healthcare provider right away if any of these occur: ?? Constant right-sided lower belly pain or increasing general belly pain ?? Continued vomiting (unable to keep liquids down) for 24 hours ?? Vomiting blood or coffee grounds ?? Swollen belly ?? Frequent diarrhea (more than 5 times a day); blood (red or black color) or mucus in diarrhea ?? Reduced urine output or extreme thirst ?? Weakness, dizziness or fainting ?? Unusually drowsy or confused ?? Fever of 100.4??F (38??C) oral or higher, or as directed ?? Yellow color of the eyes or skin [employer] last reviewed this educational content on 04/26/2017 ?? [id number] [employer]. [address] [place] [address], [place] [address]. All rights reserved. This information is not intended as a substitute for professional medical care. Always follow your healthcare professional's instructions. Viral Syndrome (Adult) A viral illness may [...] for taking care of yourself at home: ?? If symptoms are severe, rest at home for the first 2 to 3 days. ?? Stay away from cigarette smoke - both your smoke and the smoke from others. ?? You may use tlfb-jua-wjdbnzw??acetaminophen or ibuprofen for fever, muscle aching, and headache,unless another medicine was prescribed for this. If you have chronic liver or kidney disease or ever had a stomach ulcer or gastrointestinal bleeding, talk with your healthcare provider before using these medicines. No one who is younger than 18 and ill with a fever should take aspirin. It may cause severe disease or . ?? Your appetite may be poor, so a [...] body and be dangerous to your health. ?? Bylf-izi-esczhln remedies won't shorten the length of the illness but may be helpful for symptoms such as cough, sore throat, nasal and sinus congestion, or diarrhea. Don't use decongestants if you have high blood pressure. Follow-up care Follow up with your healthcare provider if you do not improve over the next week. Call 911 Call 911 if any of the following occur: ?? Convulsion ?? Feeling weak, dizzy, or like you are going to faint ?? Chest pain, or more than mild shortness of breath When to seek medical advice Call your healthcare provider right away if any of these occur: ?? Cough with lots of colored sputum (mucus) or blood in your sputum ?? Chest pain, shortness of breath, wheezing, or trouble breathing ?? Severe headache; face, neck, or ear pain ?? Severe, constant pain in the lower right side of your belly (abdominal) ?? Continued vomiting (can???t keep liquids down) ?? Frequent diarrhea (more than 5 times a day); blood (red or black color) or mucus in diarrhea ?? Feeling weak, dizzy, or like you are going to faint ?? Extreme thirst ?? Fever of 100.4??F (38??C) or higher, or as directed by your healthcare provider Allison last reviewed this educational content on 05/27/2017 ?? [id number] [employer]. [address] [place] [address], [place] [address]. All rights reserved. This information is not intended as a substitute for professional medical care. Always follow your healthcare professional's instructions. CONTINUE ALL CURRENT MEDICATION. NEVER USE ANY ILLICIT DRUGS EVER AGAIN. COULD IMMEDIATELY AND YOUR LIFE. documented in this encounter Medications at Time of Discharge hydroxychloroqui ne (PLAQUENIL) 200 MG Tablet Take 1 Tab by mouth daily. 90 Tab 3 05/09/2019 ALPRAZolam (XANAX) 0.5 MG Tablet Take 1 [...] of this encounter ED Notes * Bon Shi, RN - 12/26/2019 4:13 PM CDT Patient discharged. Discharge instructions and patient educational material reviewed with patient; questions and concerns addressed; patient verbalizes understanding, using teach back. Patient discharged per ambulatory mode with self as responsible republican. SL D/C'ed with Ruperto cath intact. * Leti Ames RN - 12/26/2019 4:05 PM CDT Pt medicated per provider orders. Pt educated on intended effects and side effects of medication and verbalized understanding, able to provide teach back of education. * Leti Ames RN - 12/26/2019 2:23 PM CDT Pt refused decadron at this time, requesting to wait until david has kicked in and attempt po prednisone. ERP Dr. Woo made aware and agreed. * Danny Woo - 12/26/2019 2:19 PM CDT Chief Complaint Patient presents with ??? Vomiting Carito Rausch is a 29 y.o. female TO THE EMERGENCY DEPARTMENT SUNDAY AFTERNOON AROUND 2:00 P.M. DECEMBER 26, 2019 WITH MULTIPLE COMPLAINTS TO INCLUDE GENERALIZED FATIGUE MALAISE MYALGIA ARTHRALGIA AFTER BEING EXPOSED TO A PERSON POSITIVE FOR CORONAVIRUS 19 COUPLE DAYS AGO AND YESTERDAY DOING COCAINE. PATIENT REPORTS GENERALIZED ABDOMINAL PAIN WITH NAUSEA AND VOMITING. NO HEMATEMESIS HEMATOCHEZIA OR MELENA. NOT ABLE TO KEEP HER MEDICATION DOWN FOR HER ADRENAL DISORDER. ON PREDNISONE DAILY. 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 THINKS SHE CAN TAKE DECADRON. ALSO HAS A HISTORY OF LUPUS. CHRONIC LOOSE STOOL THAT IS UNCHANGED. ALSO REPORTS LUPUS NEPHRITIS. WILL DO URINALYSIS FOR MAYRA LUATION OF POSSIBLE URINE INFECTION CAUSE OF SOME BACK AND FLANK PAIN TODAY. NO KNOWN FEVER. HERE FOR FURTHER EVALUATION MANAGEMENT. The history is provided by the patient and medical records. Vomiting Associated symptoms: abdominal pain and diarrhea Associated symptoms: no chills, no cough, no fever, no headaches, no myalgias and no sore throat Current Facility-Administered Medications Medication Dose Route Frequency Provider Last Rate Last Dose ??? 0.9 % sodium chloride solution 1,000 mL Intravenous Once Danny Woo MD ??? dexamethasone (DECADRON) injection 10 mg 10 mg Intravenous Once Danny Woo MD ??? ketorolac (TORADOL) injection 15 mg 15 mg Intravenous Once Danny Woo MD ??? ondansetron (ZOFRAN) injection 4 mg 4 mg Intravenous Once Danny Woo MD Current Outpatient Medications Medication Sig Dispense [...] tablet now and repeat in 3 days. (Patient not taking: Reported on 12/25/2019) 2 Tab 0 ??? hydroxychloroquine (PLAQUENIL) 200 [...] mg by mouth. Allergies Allergen Reactions ??? Effexor [Venlafaxine] Itching [...] file Gets together: Not on file Attends orthodoxy service: Not on file Active member of [...] History Narrative ??? Not on file BP 140/87 Pulse 97 Temp 99.2 ??F (37.3 ??C) (Tympanic) Resp 11 Ht 5' 2 (1.575 m) Wt 165 lb (74.8 kg) LMP 12/06/2019 (Approximate) SpO2 100% BMI 30.18 kg/m?? Review of Systems Constitutional: Positive for fatigue. Negative for appetite change, chills and fever. HENT: Negative for congestion, hearing loss, rhinorrhea and sore throat. Eyes: Negative for visual disturbance. Respiratory: Negative for cough and shortness of breath. Cardiovascular: Negative for chest pain. Gastrointestinal: Positive for abdominal pain, diarrhea, nausea and vomiting. Genitourinary: Positive for flank pain. Negative for difficulty urinating and dysuria. Musculoskeletal: Negative for myalgias. Skin: Negative for rash. Neurological: Positive for weakness. Negative for dizziness, seizures, syncope, light-headedness, numbness and headaches. Psychiatric/Behavioral: Negative for confusion. All other systems reviewed and are negative. Physical Exam Vitals signs and nursing note reviewed. Constitutional: General: She is not in acute distress. Appearance: Normal appearance. She is well-developed. She is not ill-appearing, toxic-appearing or diaphoretic. Comments: OVERWEIGHT CONSISTENT WITH DAILY PREDNISONE USE HENT: Head: Normocephalic and atraumatic. Right Ear: External ear normal. Left Ear: External ear normal. Nose: Nose normal. Mouth/Throat: Mouth: Mucous membranes are moist. Pharynx: Oropharynx is clear. Eyes: General: No scleral icterus. Right eye: No discharge. Left eye: No discharge. Conjunctiva/sclera: Conjunctivae normal. Pupils: Pupils are equal, round, and reactive to light. Neck: Musculoskeletal: Normal range of motion and neck supple. Trachea: No tracheal deviation. Cardiovascular: Rate and Rhythm: Normal rate and regular rhythm. Heart sounds: Normal heart sounds. No murmur. No friction rub. No gallop. Pulmonary: Effort: Pulmonary effort is normal. No respiratory distress. Breath sounds: Normal breath sounds. No stridor. No wheezing or rales. Abdominal: General: Bowel sounds are normal. There is no distension. Palpations: Abdomen is soft. Tenderness: There is no abdominal tenderness. There is no guarding or rebound. Musculoskeletal: Normal range of motion. General: No tenderness. Lymphadenopathy: Cervical: No cervical adenopathy. Skin: General: Skin is warm and dry. Capillary Refill: Capillary refill takes less than 2 seconds. Coloration: Skin is not pale. Findings: No erythema or rash. Neurological: General: No focal deficit present. Mental Status: She is alert and oriented to person, place, and time. Cranial Nerves: No cranial nerve deficit. Psychiatric: Mood and Affect: Mood normal. Behavior: Behavior normal. Thought Content: Thought content normal. Judgment: Judgment normal. Procedures Imaging Results None MDM Coding DIFFERENTIAL DIAGNOSIS INCLUDES DEHYDRATION, ADRENAL CRISIS, ELECTROLYTE ABNORMALITY, ANEMIA, AFFECTS FROM COCAINE ABUSE, VIRAL GASTROENTERITIS, UNLIKELY BOWEL OBSTRUCTION, UNLIKELY BOWEL PERFORATION, COVID-19, OTHER VIRAL ILLNESS, ETCETERA 4:03 PM CDT FEELS BETTER AND WANTS TO GO HOME. Admission on 12/26/2019 Component Date Value Ref Range Status ??? SODIUM 12/26/2019 141 136 - 144 mmol/L Final ??? POTASSIUM 12/26/2019 3.7 3.5 - 5.1 mmol/L Final ??? CHLORIDE 12/26/2019 102 100 - 110 mmol/L Final ??? CO2, VENOUS 12/26/2019 23 22 - 32 mmol/L Final ??? ANION GAP 12/26/2019 19.7 8.0 - 20.0 mmol/L Final ??? GLUCOSE 12/26/2019 83 70 - 99 mg/dL Final ??? BUN 12/26/2019 11 6 - 20 mg/dL Final ??? CREATININE, BLOOD 12/26/2019 0.64 0.60 - 1.10 mg/dL Final ??? BUN/CREATININE RATIO 12/26/2019 17 12 - 20 ratio Final ??? TOTAL PROTEIN 12/26/2019 7.6 6.0 - 8.3 g/dL Final ??? ALBUMIN 12/26/2019 4.7 3.5 - 5.2 g/dL Final The colormetric methods used for the determination of Albumin may lead to falsely elevated test results in patients suffering from renal failure or insufficiency due to interference with other proteins. ??? A/G RATIO 12/26/2019 1.6 1.0 - 2.0 Final ??? CALCIUM 12/26/2019 9.6 8.9 - 10.3 mg/dL Final ? ? T BILI 12/26/2019 0.7 <=1.2 mg/dL Final ? ? SGOT (AST) 12/26/2019 14 <=32 U/L Final ? ? SGPT (ALT) 12/26/2019 12 <=33 U/L Final ??? ALKALINE PHOSPHATASE 12/26/2019 58 35 - 105 U/L Final ? ? GFR, EST. NONAFRICAN 12/26/2019 >60 >=60 Final ? ? GFR, EST. 12/26/2019 >60 >=60 Final Creatinine Clearance is the preferred criteria for selecting drug dose adjustments in renally impaired patients. The GFR is provided as additional pertinent clinical information. GFR is reported in mL/min/1.73 sq m. ??? SPECIFIC GRAVITY 12/26/2019 1.015 1.003 - 1.030 Final ??? URINE PH 12/26/2019 7.0 5.0 - 9.0 Final ??? WBC ESTERASE 12/26/2019 25 /uL* Negative Final ??? NITRITE 12/26/2019 Negative Negative Final ??? PROTEIN, RANDOM URINE 12/26/2019 100 mg/dL* Negative Final ??? URINE GLUCOSE, QUAL 12/26/2019 Negative Negative Final ??? URINE KETONES 12/26/2019 50 mg/dL* Negative Final ??? UROBILINOGEN 12/26/2019 Normal Normal mg/dL Final ??? URINE BILIRUBIN 12/26/2019 Negative Negative Final ??? URINE BLOOD 12/26/2019 Negative Negative pierre/ul Final ??? URINALYSIS COLOR 12/26/2019 Yellow Final ??? URINALYSIS CLARITY 12/26/2019 Slightly Cloudy Final ??? WBC (Urine) 12/26/2019 6-10* Negative, 0-5 /hpf Final ??? URINE RBC'S 12/26/2019 0-2 Negative, 0-2 /hpf Final ??? EPITHELIAL CELLS 12/26/2019 Moderate amount /lpf Final ??? BACTERIA, URINE 12/26/2019 Moderate* Negative /hpf Final ??? URINE MUCOUS 12/26/2019 Few Final ??? WBC 12/26/2019 10.29 4.00 - 12.00 10(3)/mcL Final ??? RBC 12/26/2019 4.76 3.80 - 5.30 10(6)/mcL Final ??? HEMOGLOBIN (HGB) 12/26/2019 13.8 12.0 - 15.8 g/dL Final ??? HEMATOCRIT (HCT) 12/26/2019 43.4 36.0 - 47.0 % Final ??? MCV 12/26/2019 91.2 82.0 - 96.0 fL Final ??? MCH 12/26/2019 29.0 26.0 - 34.0 pg Final ??? MCHC 12/26/2019 31.8 31.0 - 36.0 g/dL Final ??? PLATELET COUNT 12/26/2019 353 140 - 440 10(3)/mcL Final ??? RDW 12/26/2019 14.5 11.8 - 15.5 % Final ??? MPV 12/26/2019 9.7 9.7 - 12.4 fL Final ??? NEUTROPHILS 12/26/2019 80.6* 47.0 - 73.0 % Final ??? LYMPHOCYTES 12/26/2019 12.8* 18.0 - 42.0 % Final ??? MONOCYTES 12/26/2019 5.7 4.0 - 12.0 % Final ??? EOSINOPHILS 12/26/2019 0.4 0.0 - 5.0 % Final ??? BASOPHILS 12/26/2019 0.5 0.0 - 1.0 % Final ??? ABSOLUTE NEUTROPHILS 12/26/2019 8.29* 1.60 - 7.70 10(3)/mcL Final ??? ABSOLUTE LYMPHOCYTES 12/26/2019 1.32 1.30 - 3.20 10(3)/mcL Final ??? ABSOLUTE MONOCYTES 12/26/2019 0.59 0.20 - 1.00 10(3)/mcL Final ??? ABSOLUTE EOSINOPHIL 12/26/2019 0.04 0.00 - 0.40 10(3)/mcL Final ??? ABSOLUTE BASOPHILS 12/26/2019 0.05 0.00 - 0.10 10(3)/mcL Final ??? NRBC PER 100 WBC 12/26/2019 0 Final The patient remained stable throughout their ED [...] return, and the need for follow up. DX: VIRAL SYNDROME COCAINE USE NAUSEA VOMITING * Jt Crowley, RN - 12/26/2019 1:40 PM CDT Patient to ED with c/o nausea and vomiting for 2 days. She also reports no appetite. She denies fevers but has had chills. She states she has not been able to keep her prednisone down (for lupus) andfeels like she may pass out. She reports diarrhea but this is normal for her. She reports her kidneys hurting and generalized body aches. She also states she took a bump of cocaine yesterday., documented in this encounter Plan of Treatment Not on file documented as of this encounter Procedures Procedure Name Priority Date/Time Associated Diagnosis Comments URINALYSIS REFLEX IF INDICATED BY ABNORMAL RESULTS STAT 12/26/2019 2:16 PM CDT CULTURE, URINE STAT 12/26/2019 2:16 PM CDT URINE DRUG SCREEN STAT 12/26/2019 2:1 6 PM CDT EXTRA TUBES STAT 12/26/2019 1:51 PM CDT DIEGOLING GOMEZ HEPARIN/SST TOP TUBE STAT 12/26/2019 1:51 PM CDT SARS-COV-2 BY MOLECULAR STAT 12/26/2019 1:51 PM CDT GOLD TOP TUBE STAT 12/26/2019 1:51 PM CDT BLUE TOP TUBE STAT 12/26/2019 1:51 PM CDT LAVENDER TOP TUBE STAT 12/26/2019 1:5 1 PM CDT CBC WITH AUTO DIFFERENTIAL STAT 12/26/2019 1:51 PM CDT CMP (COMPREHENSIVE METABOLIC PANEL) STAT 12/26/2019 1:51 PM CDT COMPLETE BLOOD COUNT (CBC) WITH DIFF STAT 12/26/2019 1:51 PM CDT documented in this encounter Results * (ABNORMAL) Urine Drug Screen (12/26/2019 2:16 PM CDT) Pathologist [facility] [place] UR AMPHETAMINE NON DETECTED NON DETECTED 12/26/2019 4:23 PM CDT [facility] UR BENZODIAZEPINES DETECTED(A) NON DETECTED 12/26/2019 4:23 PM CDT [facility] UR COCAINE METABOLITE DETECTED(A) NON DETECTED 12/26/2019 4:23 PM CDT [facility] UR OPIATES NON DETECTED NON DETECTED 12/26/2019 4:23 PM CDT [facility] UR PHENCYCLIDINE NON DETECTED NON DETECTED 12/26/2019 4:23 PM CDT [facility] UR CANNABINOID NON DETECTED NON DETECTED 12/26/2019 4:23 PM CDT [facility] UR TRICYCLIC ANTIDEPRESS SCREEN NON DETECTED NON DETECTED 12/26/2019 4:23 PM CDT [facility] UR BARBITURATE NON DETECTED NON DETECTED 12/26/2019 4:23 PM CDT [facility] Urine URINE SPECIMEN COLLECTION, CLEAN CATCH / Unknown Non-Phlebotomy Collection / Unknown 12/26/2019 2:16 PM CDT 12/26/2019 2:34 PM CDT Danny Woo MD URINE ORDERABLES Final Res ult Performing Organization Address City/[facility]/ZIP Co de Phone Number [facility] [address] [place] [address] * Culture, Urine (12/26/2019 2:16 PM CDT) Pathologist [facility] CULTURE RESULTS MIXED GROWTH OF ONE OR MORE DISTAL URETHRAL CONTAMINANTS 12/27/2019 4:12 PM CDT [facility] Urine URINE SPECIMEN COLLECTION, CLEAN CATCH / Unknown Non-Phlebotomy Collection / Unknown 12/26/2019 2:16 PM CDT 12/26/2019 2:34 PM CDT Danny Woo MD MICROBIOLOGY - GENERAL ORD ERABLES Final Result Performing Organization Address City/[facility]/ZIP Co de Phone Number [facility] [address] [place] [address], [place] * (ABNORMAL) URINALYSIS REFLEX IF INDICATED BY ABNORMAL RESULTS (12/26/2019 2:16 PM CDT) SPECIFIC GRAVITY 1.015 1.003 - 1.030 12/26/2019 2:59 PM CDT [facility] URINE PH 7.0 5.0 - 9.0 12/26/2019 2:59 PM CDT [facility] WBC ESTERASE 25 /uL(A) Negative 12/26/2019 2:59 PM CDT [facility] NITRITE Negative Negative 12/26/2019 2:59 PM CDT [facility] PROTEIN, RANDOM URINE 100 mg/dL(A) Negative 12/26/2019 2:59 PM CDT [facility] URINE GLUCOSE, QUAL Negative Negative 12/26/2019 2:59 PM CDT [facility] URINE KETONES 50 mg/dL(A) Negative 12/26/2019 2:59 PM CDT [facility] UROBILINOGEN Normal Normal mg/dL 12/26/2019 2:59 PM CDT [facility] URINE BILIRUBIN Negative Negative 0 2:59 PM CDT [facility] URINE BLOOD Negative Negative pierre/ul 12/26/2019 2:59 PM CDT [facility] URINALYSIS COLOR Yellow 12/26/19 20 2:59 PM CDT [facility] URINALYSIS CLARITY Slightly Cloudy 12/26/2019 2:59 PM CDT [facility] WBC (Urine) 6-10(A) Negative, 0-5 /hpf 12/26/2019 2:59 PM CDT [facility] URINE RBC'S 0-2 Negative, 0-2 /hpf 12/26/2019 2:59 PM CDT [facility] EPITHELIAL CELLS Moderate amount /lpf 12/26/2019 2:59 PM CDT [facility] BACTERIA, URINE Moderate(A) Negative /hpf 12/26/2019 2:59 PM CDT [facility] URINE MUCOUS Few 12/26/2019 2:59 PM CDT [facility] Urine URINE SPECIMEN COLLECTION, CLEAN CATCH / Unknown Non-Phlebotomy Collection / Unknown 12/26/2019 2:16 PM CDT 12/26/2019 2:34 PM CDT us Danny Woo MD URINE ORDERABLES Final Res ult [facility] [address] [place] [address] * LING HERNANDEZ HEPARIN/SST TOP TUBE (12/26/2019 1:51 PM CDT) Blood No Phlebotomy Charged / Unknown 12/26/2019 1:51 PM CDT 12/26/2019 2:42 PM CDT Danny Woo MD HEMATOLOGY ORDERABLES Briana l Result [facility] [address] [place] [address] * Lavender Top Tube (12/26/2019 1:51 PM CDT) Blood No Phlebotomy Charged / Unknown 12/26/2019 1:51 PM CDT 12/26/2019 2:42 PM CDT Danny Woo MD HEMATOLOGY ORDERABLES Briana l Result Performing Organization Address City/[facility]/ZIP Co de Phone Number [facility] [address] [place] [address] * Gold Top Tube (12/26/2019 1:51 PM CDT) Blood No Phlebotomy Charged / Unknown 12/26/2019 1:51 PM CDT 12/26/2019 2:42 PM CDT Danny Woo MD CHEMISTRY ORDERABLES Final Result Performing Organization Address City/[facility] Co de Phone Number [facility] [address] [place] [address] * Blue Top Tube (12/26/2019 1:51 PM CDT) Blood No Phlebotomy Charged / Unknown 12/26/2019 1:51 PM CDT 12/26/2019 2:42 PM CDT Danny Woo MD HEMATOLOGY ORDERABLES Briana l Result Performing Organization Address City/[facility]/ZIP Co de Phone Number [facility] [facility] [place] [address] * (ABNORMAL) CBC with Auto Differential (12/26/2019 1:51 PM CDT) WBC 10.29 4.00 - 12.00 10(3)/mcL 12/26/2019 2:43 PM CDT [facility] RBC 4.76 3.80 - 5.30 10(6)/mcL 12/26/2019 2:43 PM CDT [facility] HEMOGLOBIN (HGB) 13.8 12.0 - 15.8 g/dL 12/26/2019 2:43 PM CDT [facility] HEMATOCRIT (HCT) 43.4 36.0 - 47.0 % 12/26/2019 2:43 PM CDT [facility] MCV 91.2 82.0 - 96.0 fL 12/26/2019 2:43 PM CDT [facility] MCH 29.0 26.0 - 34.0 pg 12/26/2019 2:43 PM CDT [facility] MCHC 31.8 31.0 - 36.0 g/dL 12/26/2019 2:43 PM CDT [facility] PLATELET COUNT 353 140 - 440 10(3)/mcL 12/26/2019 2:43 PM CDT [facility] RDW 14.5 11.8 - 15.5 % 12/26/2019 2:43 PM CDT [facility] MPV 9.7 9.7 - 12.4 fL 12/26/2019 2:43 PM CDT [facility] NEUTROPHILS 80.6(H) 47.0 - 73.0 % 12/26/2019 2:43 PM CDT [facility] LYMPHOCYTES 12.8(L) 18.0 - 42.0 % 12/26/2019 2:43 PM CDT [facility] MONOCYTES 5.7 4.0 - 12.0 % 12/26/2019 2:43 PM CDT [facility] EOSINOPHILS 0.4 0.0 - 5.0 % 12/26/2019 2:43 PM CDT [facility] BASOPHILS 0.5 0.0 - 1.0 % 12/26/2019 2:43 PM CDT [facility] ABSOLUTE NEUTROPHILS 8.29(H) 1.60 - 7.70 10(3)/mcL 12/26/2019 2:43 PM CDT [facility] ABSOLUTE LYMPHOCYTES 1.32 1.30 - 3.20 10(3)/mcL 12/26/2019 2:43 PM CDT [facility] ABSOLUTE MONOCYTES 0.59 0.20 - 1.00 10(3)/mcL 12/26/2019 2:43 PM CDT [facility] ABSOLUTE EOSINOPHIL 0.04 0.00 - 0.40 10(3)/mcL 12/26/2019 2:43 PM CDT [facility] ABSOLUTE BASOPHILS 0.05 0.00 - 0.10 10(3)/mcL 12/26/2019 2:43 PM CDT [facility] NRBC PER 100 WBC 0 12/26/19 20 2:43 PM CDT [facility] Blood Venous Catheter (IV) / Unknown 12/26/2019 1:51 PM CDT 12/26/2019 2:37 PM CDT us Danny Woo MD HEMATOLOGY ORDERABLES Briana l Result [facility] [place] [address] * SARS-COV-2 BY MOLECULAR (12/26/2019 1:51 PM CDT) SARSCOV2 NOT DETECTED (Referenc e Range for this test is Not Detected) [facility] FA[facility] DX 12/27/2019 5:19 PM CDT [facility] Swab NASOPHARYNGEAL STRUCTURE / Unknown 12/26/2019 1:51 PM CDT 12/26/2019 8:49 PM CDT Narrative [facility] - 12/27/2019 5:19 PM CDT Authorized Fact Sheets about this test for providers and patients are available at: https://www.fda.gov/medical-devices/szetkjhzk-vnbwqxxntp-cbygelr-devices/emergen cy-us e-authorizations us Danny Woo MD MICROBIOLOGY - GENERAL ORD ERABLES Final Result [facility] [address] [place] [address], [place] * CMP (Comprehensive Metabolic Panel) (12/26/2019 1:51 PM CDT) SODIUM 141 136 - 144 mmol/L 12/26/2019 3:03 PM CDT [facility] POTASSIUM 3.7 3.5 - 5.1 mmol/L 12/26/2019 3:03 PM CDT [facility] CHLORIDE 102 100 - 110 mmol/L 12/26/2019 3:03 PM CDT [facility] CO2, VENOUS 23 22 - 32 mmol/L 12/26/2019 3:03 PM CDT [facility] ANION GAP 19.7 8.0 - 20.0 mmol/L 12/26/2019 3:03 PM CDT [facility] GLUCOSE 83 70 - 99 mg/dL 12/26/2019 3:03 PM CDT [facility] BUN 11 6 - 20 mg/dL 12/26/2019 3:03 PM CDT [facility] CREATININE, BLOOD 0.64 0.60 - 1.10 mg/dL 12/26/2019 3:03 PM CDT [facility] BUN/CREATININE RATIO 17 12 - 20 ratio 12/26/2019 3:03 PM CDT [facility] TOTAL PROTEIN 7.6 6.0 - 8.3 g/dL 12/26/2019 3:03 PM CDT [facility] ALBUMIN 4.7 3.5 - 5.2 g/dL 12/26/2019 3:03 PM CDT [facility] Comment: The colormetric methods used for the determination of Albumin may lead to falsely elevated test results in patients suffering from renal failure or insufficiency due to interference with other proteins. A/G RATIO 1.6 1.0 - 2.0 12/26/2019 3:03 PM CDT [facility] CALCIUM 9.6 8.9 - 10.3 mg/dL 12/26/2019 3:03 PM CDT [facility] T BILI 0.7 <=1.2 mg/dL 12/26/2019 3:03 PM CDT [facility] SGOT (AST) 14 <=32 U/L 12/26/2019 3:03 PM CDT [facility] SGPT (ALT) 12 <=33 U/L 12/26/2019 3:03 PM CDT [facility] ALKALINE PHOSPHATASE 58 35 - 105 U/L 12/26/2019 3:03 PM CDT [facility] GFR, EST. NONAFRICAN >60 >=60 12/26/2019 3:03 PM CDT [facility] GFR, EST. >60 >=60 020 3:03 PM CDT [facility] Comment: Creatinine Clearance is the preferred criteria for selecting drug dose adjustments in renally impaired patients. ??The GFR is provided as additional pertinent clinical information. GFR is reported in mL/min/1.73 sq m. Blood Venous Catheter (IV) / Unknown 12/26/2019 1:51 PM CDT 12/26/2019 2:37 PM CDT us Danny Woo MD CHEMISTRY ORDERABLES Final Result [facility] [address] [place] [address] documented in this encounter Visit Diagnoses Diagnosis Viral syndrome- Primary Unspecified viral infection, in conditions classified elsewhere and of unspecified site Cocaine use Cocaine abuse, unspecified Nausea with vomiting documented in this encounter Administered Medications Inactive Administered Medications - up to 3 most recent administrations Medication Order MAR Action Action Date Dose Rate Site 0.9 % sodium chloride solution at 1,000 mL/hr, Intravenous, ONCE, 1 dose, On Sun12/26/19 at 1430 New Bag 12/26/2019 2:23 PM CDT 1,000 mL 1000 mL /hr ketorolac (TORADOL) injection 15 mg 15 mg, Intravenous, ONCE, 1 dose, On Sun12/26/19 at 1430 Given 12/26/2019 2:23 PM CDT 15 mg ondansetron (ZOFRAN) injection 4 mg 4 mg, Intravenous, ONCE, 1 dose, On Sun12/26/19 at 1430 Given 12/26/2019 2:23 PM CDT 4 mg predniSONE (DELTASONE) tablet 10 mg 10 mg, Oral, ONCE, 1 dose, On Sun12/26/19 at 1530 Given 12/26/2019 4:04 PM CDT 10 mg documented in this encounter Active and Recently Administered Medications Times are shown in CDT. Scheduled Medication Order 12/24/2019 12/25/2019 12/26/2019 0.9 % sodium chloride solution (COMPLETED) at 1,000 mL/hr, Intravenous, ONCE, 1 dose, On Sun12/26/19 at 1430 1423 (New Bag - Prov ider: Leti Ames RN)1518 (Stopped - Provider: Leti Ames RN) ketorolac (TORADOL) injection 15 mg (COMPLETED) 15 mg, Intravenous, ONCE, 1 dose, On Sun12/26/19 at 1430 1423 (Given - Provid er: Leti Ames RN) ondansetron (ZOFRAN) injection 4 mg (COMPLETED) 4 mg, Intravenous, ONCE, 1 dose, On Sun12/26/19 at 1430 1423 (Given - Provid er: Leti Ames RN) predniSONE (DELTASONE) tablet 10 mg (COMPLETED) 10 mg, Oral, ONCE, 1 dose, On Sun12/26/19 at 1530 1604 (Given - Provid er: Leti Ames RN) documented in this encounter Additional Health Concerns Infection Onset Date Last Indicated Resolved Time COVID - 19 12/25/2019 12/26/2019 12/28/2019 6:29 AM LAUNDRY SUPERINTENDENT Assessment Noted Time PHQ-9 Depression Total Score: 0 03/25/19 10:00 AM LAUNDRY SUPERINTENDENT documented as of this encounter Care Teams Office Assistant Relationship Specialty Start Date End Date Gayla Barker, PATIENT SERVICE REP, LITERACY EDUCATION PROFESSOR [address] [place] [address] PCP - General Advanced Practice Nurse 03/25/19 Ct[facility] [place] [facility] 09/03/19 documented as of this encounter
--- OUTSIDE RECORDS SUMMARY | 2024-02-24 19:45 | XMS_ITS | Encounter Summary ---
Author Organization [facility] Address [address] [address] Phone Care Team Providers Care Blade Aligner Name Role Phone Gayla Barker APRN, WOMEN'S ACTIVITIES ADVISER Primary Care Provider Ct, [facility] Unavailable Marianela vailable Encounter Details Date Type Department Care Team ([facility] Contact Info) Description 12/07/2019 Telephone [facility] Digital Contact Center [address] [place] [address] Gayla Barker, ANNIE, WOMEN'S ACTIVITIES ADVISER [address] [place] [address] Social History Tobacco Use Types Packs/Day Years [...] on file Legal Sex Female 10:27 AM TECHNICIAN SUBMARINE CABLE EQUIPMENT Gender Identity Not on file Sexual Orientation Not on file COVID-19 Exposure Response Date Recorded In the last month, have you been in contact with someone who was confirmed or suspected to have Coronavirus / COVID-19? No / Unsure 12/05/2019 2:01 PM CDT documented as of this encounter Miscellaneous Notes * Telephone Encounter - Ade Blevins, RN - 12/19/2019 5:22 PM CDT . documented in this encounter Plan of Treatment Not on file documented as of this encounter Visit Diagnoses Not on filedocumented in this encounter Additional Health Concerns Infection Onset Date Last Indicated Resolved Time COVID - 19 11/25/2019 12/09/2019 12/11/2019 7:53 AM CDT Assessment Noted Time PHQ-9 Depression Total Score: 0 03/25/19 10:00 AM TECHNICIAN SUBMARINE CABLE EQUIPMENT documented as of this encounter Care Teams Blade Aligner Relationship Specialty Start Date End Date Gayla Barker, COOKER CLEANER, WOMEN'S ACTIVITIES ADVISER [address] [place] [address] PCP - General Advanced Practice Nurse 03/25/19 Ct, [facility] [place] [facility] 09/03/19 documented as of this encounter
--- OUTSIDE RECORDS SUMMARY | 2024-02-24 19:45 | XMS_ITS | Encounter Summary ---
Author Organization [facility] Care Team Providers Care Veterinary Virologist Name Role Phone Gayla Barker DIRECTOR METABOLISM, CATTLE TESTER Primary Care Provider Ct, [facility] Unavailable Marianela vailable Encounter Details Date Type Department Care Team (Latest Contact Info) Description 12/28/2019 Travel Social History Tobacco Use Types Packs/Day [...] on file Legal Sex Female 10:27 AM PARAMEDIC Gender Identity Not on file Sexual Orientation Not on file COVID-19 Exposure Response Date Recorded In the last month, have you been in contact with someone who was confirmed or suspected to have Coronavirus / COVID-19? Yes 12/28/2019 8:32 AM PARAMEDIC documented as of this encounter Plan of Treatment Not on file documented as of this encounter Visit Diagnoses Not on filedocumented in this encounter Additional Health Concerns Infection Onset Date Last Indicated Resolved Time COVID - 19 12/25/2019 12/26/2019 12/28/2019 6:29 AM PARAMEDIC Assessment Noted Time PHQ-9 Depression Total Score: 0 03/25/19 10:00 AM PARAMEDIC documented as of this encounter Care Teams Veterinary Virologist Relationship Specialty Start Date End Date Gayla Barker, DIRECTOR METABOLISM, CATTLE TESTER [address] [place] [address] PCP - General Advanced Practice Nurse 03/25/19 Ct, [facility] [place] [facility] 09/03/19 documented as of this encounter
--- OUTSIDE RECORDS SUMMARY | 2024-02-24 19:45 | XMS_ITS | Encounter Summary ---
Author Organization [facility] Address [address] [address] Phone Care Team Providers Care Student Services Dean Name Role Phone Gayla Barker APRN, CUSTOM LEATHER PRODUCTS MAKER Primary Care Provider Ct, [facility] Unavailable Marianela vailable Encounter Details Date Type Department Care Team ([facility] Contact Info) Description 12/07/2019 Telephone [facility] Digital Contact Center [address] [place] [address] Gayla Barker, ANNIE, CUSTOM LEATHER PRODUCTS MAKER [address] [place] [address] Social History Tobacco Use Types Packs/Day Years [...] on file Legal Sex Female 10:27 AM FINGERPRINTER Gender Identity Not on file Sexual Orientation Not on file COVID-19 Exposure Response Date Recorded In the last month, have you been in contact with someone who was confirmed or suspected to have Coronavirus / COVID-19? No / Unsure 12/05/2019 2:01 PM CDT documented as of this encounter Miscellaneous Notes * Telephone Encounter - Teresa Swift RN - 12/07/2019 1:09 PM CDT Erroneous encounter documented in this encounter Plan of Treatment Not on file documented as of this encounter Visit Diagnoses Not on filedocumented in this encounter Additional Health Concerns Infection Onset Date Last Indicated Resolved Time COVID - 19 11/25/2019 12/09/2019 12/11/2019 7:53 AM CDT Assessment Noted Time PHQ-9 Depression Total Score: 0 03/25/19 10:00 AM FINGERPRINTER documented as of this encounter Care Teams Student Services Dean Relationship Specialty Start Date End Date Gayla Barker, PLATING MACHINE OPERATOR, CUSTOM LEATHER PRODUCTS MAKER [address] [place] [address] PCP - General Advanced Practice Nurse 03/25/19 Ct[facility] [place] [facility] 09/03/19 documented as of this encounter
--- OUTSIDE RECORDS SUMMARY | 2024-02-24 19:45 | XMS_ITS | Encounter Summary ---
Author Organization [facility] Address [address] [place] [address] Phone Care Team Providers Care Probate Lawyer Name Role Phone Gayla Barker APRN, CNP Primary Care Provider Ct, [facility] Unavailable Marianela vailable Reason for Visit * Reason Onset Date Comments Medication Refill 11/13/2019 xanax Encounter Details Date Type Department Care Team (Late st Contact Info) Description 11/13/2019 Refill [facility] [address] [place] [address] Gayla Barker APRN, TATTOO ARTIST [address] [place] [address] Medication Refill (xanax) Social History Tobacco Use Types Packs/Day Years [...] file Legal Sex Female 10:27 AM AGRICULTURAL PRODUCE COMMISSION AGENT Gender Identity Not on file Sexual Orientation Not on file COVID-19 Exposure Response Date Recorded In the last month, have you been in contact with someone who was confirmed or suspected to have Coronavirus / COVID-19? Yes 11/13/2019 7:53 AM CDT documented as of this encounter Miscellaneous Notes * Telephone Encounter - Shelley Fung RN - 11/13/2019 11:24 AM CDT Medication failed the Protocol, routing to provider to review and approve medication order. Requested Prescriptions Pending Prescriptions Disp Refills ALPRAZolam (XANAX) 0.25 MG Tablet 30 Tab 0 Sig: Take 1 Tab by mouth 2 times daily as needed for Anxiety. Not Delegated - Psychiatry: Anxiolytics/Hypnotics Failed - 11/13/2019 10:16 AM Failed - This refill cannot be delegated Passed - Valid encounter within last 6 months Past Office Visits Recent Outpatient Visits Yesterday Systemic lupus erythematosus, unspecified SLE type, unspecified organ involvement status (HCC) [facility] - Gayla Wood APN, TATTOO ARTIST 3 weeks ago Non-intractable vomiting with nausea, unspecified vomiting type [facility] - Gayla Wood, PENNY, TATTOO ARTIST 1 month ago 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) [facility] - Brian Santiago MD 3 months ago Arthralgia, unspecified joint [facility] - Gayla Wood, PENNY, TATTOO ARTIST 3 months ago Shortness of breath [facility] - Gayla Wood, COLD FOOD PACKER, TATTOO ARTIST Upcoming Appointments CRM MARKETING SPECIALIST - Recent and Past Visits Recent Visits Date Type Provider Dept 11/12/19 Telemedicine Gayla Barker APN, CNP [facility] [address] 10/21/19 Office Visit Gayla Barker APN, CNP [facility] [address] 09/17/19 Office Visit [facility] 08[facility]19 Telemedicine Gayla Barker APN, CNP [facility] 08/06/19 Telemedicine Gayla Barker APN, TATTOO ARTIST [facility] 07/25/19 Office Visit Gayla Barker APN, TATTOO ARTIST [facility] 07/11/19 Telemedicine Gayla Barker APN, TATTOO ARTIST [facility] 07/04/19 Office Visit Gayla Barker APN, TATTOO ARTIST [facility] 06/23/19 Telemedicine Gilmar De Paz, PAC [facility] 06/05/19 Telemedicine Gilmar De Paz, PAC [facility] Showing recent visits within past 460 days with a meds authorizing provider and meeting all other requirements Future Appointments No visits were found meeting these conditions. Showing future appointments within next 90 days with a meds authorizing provider and meeting all other requirements * Telephone Encounter - Blank Huertas - 11/13/2019 10:13 AM CDT Received: []FAX [x]TELEPHONE CALL []MYCHART from: []PHARMACY [x]PATIENT/OTHER regarding medication management. Medication name and dose: ALPRAZolam (XANAX) 0.25 MG Tablet Quantity: (30 day, 90 day, 3 monthly scripts) 15 day Pharmacy preference for this medication: [facility]/pharmacy #[id number]?[phone] Outcome: [x]Medication pended, routed to surescripts []Medication refused []Informed caller of refills at pharmacy [x]Additional message to medication management RN []Verbal authorization for written order to pharmacy [x]Additional message to provider []Verified medication with pharmacy [facility] Medication Management Pt is out of her xanax. Rx pended for your review and approval. Thank you. Reached out to Medication Management RN via office messaging. documented in this encounter Plan of Treatment Not on file documented as of this encounter Visit Diagnoses Not on filedocumented in this encounter Additional Health Concerns Infection Onset Date Last Indicated Resolved Time COVID - 19 11/13/2019 11/13/2019 11/16/2019 12:0 8 AM CDT Assessment Noted Time PHQ-9 Depression Total Score: 0 03/25/19 10:00 AM AGRICULTURAL PRODUCE COMMISSION AGENT documented as of this encounter Care Teams Probate Lawyer Relationship Specialty Start Date End Date Gayla Barker, MAINTENANCE SPECIALIST, TATTOO ARTIST [address] [place] [address] PCP - General Advanced Practice Nurse 03/25/19 Ct[facility] [place] [facility] 09/03/19 documented as of this encounter
--- OUTSIDE RECORDS SUMMARY | 2024-02-24 19:45 | XMS_ITS | Encounter Summary ---
Author Organization [facility] Address [address] [place] [address] Care Team Providers Care Auxiliary Power Equipment Operator Name Role Phone Gayla Barker APRN, CNP Primary Care Provider Ct, [facility] Unavailable Marianela vailable Encounter Details Date Type Department Care Team (Late st Contact Info) Description 12/22/2019 12:00 PM CDT Rapid Evaluation [place] [facility] Mobile Testing [place] [address] [place] [address] Social History Tobacco Use Types Packs/Day Years Used Date Smoking Tobacco: Never Assessed AUDIT-C Answer Date Recorded Frequency of Alcohol Consumption Monthly or less 03/25/2019 Average Number of Drinks Not on file 020 Frequency of Binge Drinking Not on file 02/27 PHQ-2 Answer Date Recorded PHQ-2 Score 0 03/25/2019 Comments No Sex and Gender Information Value Date Recorded Sex Assigned at Not on file Legal Sex Female 10:27 AM TATTOO ARTIST Gender Identity Not on file Sexual Orientation Not on file COVID-19 Exposure Response Date Recorded In the last month, have you been in contact with someone who was confirmed or suspected to have Coronavirus / COVID-19? No / Unsure 02/03/2020 12:59 PM TATTOO ARTIST documented as of this encounter Plan of Treatment Not on file documented as of this encounter Visit Diagnoses Not on filedocumented in this encounter Additional Health Concerns Assessment Noted Time PHQ-9 Depression Total Score: 0 03/25/19 20 10:00 AM TATTOO ARTIST documented as of this encounter Care Teams Auxiliary Power Equipment Operator Relationship Specialty Start Date End Date Gayla Barker APRN, CNP [address] [place] [address] PCP - General Advanced Practice Nurse 03/25/19 Ct[facility] [place] [facility] 09/03/19 documented as of this encounter
--- OUTSIDE RECORDS SUMMARY | 2024-02-24 19:45 | XMS_ITS | Encounter Summary ---
Author Organization [facility] Address [address] [place] [address] Phone Care Team Providers Care Orthotic And Prosthetic Technician Name Role Phone Gayla Barker APRN, JOB FORWARDER Primary Care Provider Ct, [facility] Unavailable Marianela vailable Reason for Visit * Reason Onset Date Comments COVID-19 12/27/2019 Encounter Details Date Type Department Care Team (Late st Contact Info) Description 12/27/2019 Nurse Triage [facility] Digital Contact Center [address] [place] [address] Provider, None [place] COVID-19 Social History Tobacco Use Types Packs/Day [...] on file Legal Sex Female 10:27 AM TIRE BEADER MAKER Gender Identity Not on file Sexual Orientation Not on file COVID-19 Exposure Response Date Recorded In the last month, have you been in contact with someone who was confirmed or suspected to have Coronavirus / COVID-19? Yes 12/26/2019 1:34 PM CDT documented as of this encounter Miscellaneous Notes * Telephone Encounter - Violette Schroeder - 12/27/2019 5:03 PM CDT Images from the original note were not included. Travel Screening Question Response In the last month, have you been in contact with someone who was confirmed or suspected to have Coronavirus / COVID-19? Yes Have you had a COVID-19 viral test in the last 14 days? No Do you have any of the following new or worsening symptoms? Chills;Diarrhea;Vomiting;Fatigue Have you traveled internationally in the last month? No Travel History Travel since 11/26/19 No documented travel since 11/26/19 COVID-19 Testing Priority for Carito Rausch: 2 Nurse to triage SITUATION: Patient calling with covid questions about results and possible symptoms BACKGROUND: seen in ED and tested awaiting results ASSESSMENT: Symptom Description / Location: feeling better, had back pain asking about kidneys and possible UTI, no symptoms now Pain (0-10): Temp: Treatment / Response: not given anything Call dropped RECOMMENDATION: See care advice and disposition for Guidelines [...] ask them to send a request via [employer] to their provider (you may need to activate a [employer] account with them). You may also route an excuse note request to the provider. Inform the patient that the provider will determine if a note will be sent and let them know that a telephone visit may be required. Caller verbalizes understanding of the above information. VIOLETTE SCHROEDER RN Reason for Disposition ??? COVID-19 Testing, questions about Protocols used: CORONAVIRUS (COVID-19) DIAGNOSED OR [id number] documented in this encounter Plan of Treatment Not on file documented as of this encounter Visit Diagnoses Not on filedocumented in this encounter Additional Health Concerns Infection Onset Date Last Indicated Resolved Time COVID - 19 12/25/2019 12/26/2019 12/28/2019 6:29 AM TIRE BEADER MAKER Assessment Noted Time PHQ-9 Depression Total Score: 0 03/25/19 10:00 AM TIRE BEADER MAKER documented as of this encounter Care Teams Orthotic And Prosthetic Technician Relationship Specialty Start Date End Date Gayla Barker, DIETARY AIDE COOK, JOB FORWARDER [address] [place] [address] PCP - General Advanced Practice Nurse 03/25/19 Ct, [facility] [place] [facility] 09/03/19 documented as of this encounter
--- OUTSIDE RECORDS SUMMARY | 2024-02-24 19:45 | XMS_ITS | Encounter Summary ---
Author Organization [facility] Address [address] [place] [address] Phone Care Team Providers Care Mechanical Design Drafter Name Role Phone Gayla Barker APRN, TRAFFIC OFFICER Primary Care Provider Ct, Acute Cov[facility] At Home Care Unavailable Marianela vailable Reason for Visit * Reason Comments Muscle Pain Chills Vomiting Diarrhea Headache Encounter Details Date Type Department Care Team (Late st Contact Info) Description 11/13/2019 11:00 AM CDT Clinical Support [facility] [place] [address] [place] [address] Testing, [facility] Nurse [place] Nonintractable headache, unspecified chronicity pattern, unspecified headache type; Diarrhea, unspecified type; Vomiting, intractability of vomiting not specified, presence of nausea not specified, unspecified vomiting type Discharge Disposition: Discharged to home or [...] on file Legal Sex Female 10:27 AM HEAD OF BIOLOGY Gender Identity Not on file Sexual Orientation Not on file COVID-19 Exposure Response Date Recorded In the last month, have you been in contact with someone who was confirmed or suspected to have Coronavirus / COVID-19? Yes 11/13/2019 7:53 AM CDT documented as of this encounter Progress Notes * Rose Mary Hinton RN - 11/13/2019 11:00 AM CDT Patient presents to prompt care in personal car for drive up nasopharyngeal COVID 19 swab. left nare swabbed with slight difficulty with patient movement and patient's distraction of being on a phone call at the same time. Overall patient did tolerate swabbing. Written instruction given on care at home, home isolation, and symptoms that would require an ER visit. Specimen sent to [facility] documented in this encounter Plan of Treatment Not on file documented as of this encounter Procedures Procedure Name Priority Date/Time Associated Diagnosis Comments SARS-COV-2 BY MOLECULAR Routine 11/13/2019 9:01 AM CDT Nonintractable headache, unspecified chronicity pattern, unspecified headache type Diarrhea, unspecified type Vomiting, intractability of vomiting not specified, presence of nausea not specified, unspecified vomiting type documented in this encounter Results * SARS-COV-2 BY PCR (11/13/2019 9:01 AM CDT) SARSCOV2 NOT DETECTED (Reference Range for this test is Not Detected) 11/14/2019 3:12 AM CDT [facility] Swab NASOPHARYNGEAL STRUCTURE / Unknown Non-Phlebotomy Collection / Unknown 11/13/2019 9:01 AM CDT 11/13/2019 9:01 AM CDT Narrative [facility] - 11/14/2019 3:12 AM CDT Authorized Fact Sheets about this test for providers and patients are available at: https://www.fda.gov/medical-devices/myoyrpjhm-ogejlumdcl-mlbfwwd-devices/emergen cy-us e-authorizations us Gayla Burton APRN, CNP MICROBIOLOGY - GENERAL ORDERABLES Final Result [facility] [address] [place] [address], [place] documented in this encounter Visit Diagnoses Diagnosis Nonintractable headache, unspecified chronicity pattern, unspecified headache type Diarrhea, unspecified type Vomiting, intractability of vomiting not specified, presence of nausea not specified, unspecified vomiting type documented in this encounter Additional Health Concerns Infection Onset Date Last Indicated Resolved Time COVID - 19 11/13/2019 11/13/2019 11/16/2019 12:0 8 AM CDT Assessment Noted Time PHQ-9 Depression Total Score: 0 03/25/19 10:00 AM HEAD OF BIOLOGY documented as of this encounter Care Teams Mechanical Design Drafter Relationship Specialty Start Date End Date Gayla Barker APRN, HARSHA [address] [place] [address] PCP - General Advanced Practice Nurse 03/25/19 Ct, [facility] Home [facility] [place] Digital [facility] 09/03/19 documented as of this encounter
--- OUTSIDE RECORDS SUMMARY | 2024-02-24 19:45 | XMS_ITS | Encounter Summary ---
Author Organization [facility] Address [address] 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 AIRPORT Gender Identity Not on file Sexual Orientation [...] Primary Systemic lupus erythematosus Proteinuria, unspecified type documented in this encounter Additional Health Concerns Assessment Noted Time PHQ-9 Depression Total Score: 0 03/25/19 10:00 AM FIRE FIGHTER AIRPORT documented as of this encounter Care Teams Inspector Air Carrier Relationship Specialty Start Date End Date Gayla Barker, TRACK EQUIPMENT OPERATOR, LINING SEWER [address] [place] [address] PCP - General Advanced Practice Nurse 03/25/19 Ct, [facility] [place] [facility] 09/03/19 documented as of this encounter
--- OUTSIDE RECORDS SUMMARY | 2024-02-24 19:45 | XMS_ITS | Encounter Summary ---
Author Organization [facility] Address [address] [facility] [place] [address] Phone Care Team Providers Care Fast Brim Pouncer Name Role Phone Gayla Barker APRN, HARSHA Primary Care Provider Ct, Acute Covid At Home Care Unavailable Marianela vailable Reason for Visit * Reason Onset Date Comments COVID-19 11/25/2019 Encounter Details Date Type Department Care Team (Late st Contact Info) Description 11/25/2019 Nurse Triage [facility] Digital Contact Center [address] [place] [id number] Gayla Barker APRN, WATER SERVER [address] [place] [address] COVID-19 Social History Tobacco Use Types Packs/Day [...] on file Legal Sex Female 10:27 AM BUMPER AND PAINTER Gender Identity Not on file Sexual Orientation Not on file COVID-19 Exposure Response Date Recorded In the last month, have you been in contact with someone who was confirmed or suspected to have Coronavirus / COVID-19? No / Unsure 11/25/2019 10:41 AM CDT documented as of this encounter Miscellaneous Notes * Telephone Encounter - Winifred Hurd RN - 11/25/2019 10:40 AM CDT Images from the original note were not included. Travel Screening Question Response In the last month, have you been in contact with someone who was confirmed or suspected to have Coronavirus / COVID-19? No / Unsure Have you had a COVID-19 viral test in the last 14 days? No Do you have any of the following new or worsening symptoms? Vomiting;Diarrhea;Cough Have you traveled internationally in the last month? No Travel History Travel since 10/25/19 No documented travel since 10/25/19 Patients whose symptoms require immediate emergency assistance should be directed to contact 91 for emergency assistance. If the triage nurse is calling 911, notify the dispatcher of the negative screening. Screening Results: COVID-19 LIKE SYMPTOMS Patient is experiencing COVID-19 type symptoms, but has no known exposure or international travel. State to Patient: Based on your answers, I recommend that you please remain on the line while I transfer you to a triage nurse who can advise you further on next steps. Did patient refuse glycerin supervisor? no Travel Screening Question Response In the last month, have you been in contact with someone who was confirmed or suspected to have Coronavirus / COVID-19? No / Unsure Have you had a COVID-19 viral test in the last 14 days? No Do you have any of the following new or worsening symptoms? Vomiting;Diarrhea;Cough Have you traveled internationally in the last month? No Travel History Travel since 10/25/19 No documented travel since 10/25/19 COVID-19 Testing Priority for Carito Rausch: 2 Nurse to triage SITUATION: Patient calling with c/o vomiting, diarrhea, and cough. BACKGROUND: States that she has had diarrhea and vomiting for close to 2 weeks. States that she is currently undergoing chemo (last treatment was 11/17) for lupus. ASSESSMENT: Symptom Description / Location: Cough is dry, non-productive, states that it feels like a deep cough. Vomiting and diarrhea have been going on longer, states that she had a temperature of 100.2. Pain (0-10): 4/10 Temp: 97.7 temporal Treatment / Response: ibuprofen and tylenol RECOMMENDATION: See care advice and disposition for [...] ask them to send a request via Curemark to their provider (you may need to activate a Curemark account with them). You may also route an excuse note request to the provider. Inform the patient that the provider will determine if a note will be sent and let them know that a telephone visit may be required. Caller verbalizes understanding of the above information. WINIFRED HURD RN. ??? If patient refuses to speak to a nurse: Please continue to monitor your symptoms and if they get worse, do not hesitate to call us back. We are here 18/09. We recommend you refer to the CDC website regarding guidelines for self- isolation and thank you for calling. WINIFRED HURD RN Reason for Disposition ??? [1] COVID-19 infection suspected by caller or triager AND [2] mild symptoms (cough, fever, or others) AND [3] no complications or SOB Protocols used: CORONAVIRUS (COVID-19) DIAGNOSED OR [id number] documented in this encounter Plan of Treatment Not on file documented as of this encounter Visit Diagnoses Not on filedocumented in this encounter Additional Health Concerns Assessment Noted Time PHQ-9 Depression Total Score: 0 03/25/19 20 10:00 AM BUMPER AND PAINTER documented as of this encounter Care Teams Fast Brim Pouncer Relationship Specialty Start Date End Date Gayla Barker, FILM TOUCH UP INSPECTOR, WATER SERVER [address] [place] [address] PCP - General Advanced Practice Nurse 03/25/19 Ct, [facility] Cov[facility] Home Care [place] Digital [facility] 09/03/19 documented as of this encounter
--- OUTSIDE RECORDS SUMMARY | 2024-02-24 19:45 | XMS_ITS | Encounter Summary ---
Author Organization [facility] Address [address] [place] [address] Phone Care Team Providers Care Slackman Name Role Phone Gayla Barker APRN, PULL TAB DEALER Primary Care Provider Ct, Acute Covid At Home Care Unavailable Marianela vailable Reason for Visit * Reason Comments Cough Chills Fever Vomiting Diarrhea Generalized Body Aches Joint Pain Encounter Details Date Type Department Care Team (Late st Contact Info) Description 12/09/2019 10:50 AM CDT Clinical Support [facility] [place] [address] [place] [address] Testing, [facility] Nurse [place] Cough (Primary Dx) Discharge Disposition: Discharged to [...] on file Legal Sex Female 10:27 AM OUTSIDE INSTALLATION MACHINIST Gender Identity Not on file Sexual Orientation Not on file COVID-19 Exposure Response Date Recorded In the last month, have you been in contact with someone who was confirmed or suspected to have Coronavirus / COVID-19? No / Unsure 12/05/2019 2:01 PM CDT documented as of this encounter Progress Notes * Vani Colunga, RN - 12/09/2019 10:50 AM CDT Patient presents to prompt care in personal car for drive up nasopharyngeal COVID 19 swab. left nare swabbed with no difficulty and patient tolerated well. Written instruction given on care at home, home isolation, and symptoms that would require an ER visit. Specimen sent to [facility] documented in this encounter Plan of Treatment Not on file documented as of this encounter Visit Diagnoses Diagnosis Cough- Primary documented in this encounter Additional Health Concerns Infection Onset Date Last Indicated Resolved Time COVID - 19 11/25/2019 12/09/2019 12/11/2019 7:53 AM CDT Assessment Noted Time PHQ-9 Depression Total Score: 0 03/25/19 10:00 AM OUTSIDE INSTALLATION MACHINIST documented as of this encounter Care Teams Slackman Relationship Specialty Start Date End Date Gayla Barker, CLAIMS AUDITOR, PULL TAB DEALER [address] [place] [address] PCP - General Advanced Practice Nurse 03/25/19 Ct, [facility] [place] [facility] [place] 09/03/19 documented as of this encounter
--- OUTSIDE RECORDS SUMMARY | 2024-02-24 19:45 | XMS_ITS | Encounter Summary ---
Author Organization [facility] Address [address] [place] [address] Phone Care Team Providers Care Final Inspector Movement Assembly Name Role Phone Gayla Barker APRN, HARSHA Primary Care Provider Ct, Acute Covid At Home Care Unavailable Marianela vailable Reason for Visit * Reason Comments Urinary Urgency Genital Warts pt is having a break out and would like Acyclovir Encounter Details Date Type Department Care Team (Latest Contact Info) Description 12/03/2019 1:00 PM CDT Telemedicine [facility] - [place] [address] [place] [address] Gayla Barker APRN, DIRECTOR OF KNOWLEDGE MANAGEMENT [address] [place] [address] Pelvic pressure in female (Primary Dx); Herpes simplex vulvovaginitis Discharge Disposition: Discharged to home or Selfcare [...] on file Legal Sex Female 10:27 AM AUTOMOTIVE 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 No / Unsure 11/25/2019 10:41 AM CDT documented as of this encounter Patient Instructions * Patient Instructions* Gayla Barker APN, CNP - 12/03/2019 1:00 PM CDT Diflucan 1 tablet now and repeat in 3 days. Valtrex 3 times a day. Follow-up if symptoms do not improve. documented in this encounter Progress Notes * Dimple Junior RMA - 12/03/2019 1:00 PM CDT Carito Rausch is on telephone visit for Urinary Urgency and Genital Warts (pt is having a breakout and would like Acyclovir) . Medications and allergies reconciled with Carito Rausch. * Gayla Barker APN, CNP - 12/03/2019 1:00 PM CDT Subjective: Patient was assessed via telephone for a duration of 15 minutes.?? Patient verbally consented for this service to be performed and billed. Patient presented for telephone encounter for complaints of pelvic pain and an outbreak of genital herpes. She states that she has been getting her infusions for her lupus and that she feels great this further lupus symptoms are going. She states they did a urine the other day when she was getting her infusion and it was negative but she continues to have pelvic pressure and feels like it is possibly urinary tract infection. She had similar symptoms back in April and was treated with Diflucan in the improved. She is also have some a genital herpes outbreak which she gets very rarely. She would like a refill on her Valtrex. Review of Systems Constitutional: Negative for fever. HENT: Negative. Respiratory: Negative for cough and shortness of breath. Cardiovascular: Negative for chest pain and palpitations. Gastrointestinal: Negative for constipation, diarrhea, nausea and vomiting. Genitourinary: Positive for genital sores, pelvic pain (pressure) and urgency. Negative for dysuria. Musculoskeletal: Negative. Neurological: Negative for dizziness and headaches. Psychiatric/Behavioral: Negative. Objective: Physical Exam Nursing note reviewed. Neurological: Mental Status: She is alert and oriented to person, place, and time. Psychiatric: Mood and Affect: Mood normal. Telephone encounter. Physical exam omitted Assessment and Plan See Diagnoses, Orders, Follow-up, and Instructions Encounter Diagnoses Name Primary? Pelvic pressure in female Yes ??? Herpes simplex vulvovaginitis Diflucan 1 tablet now and repeat in 3 days. Valtrex 3 times a day. Follow-up if symptoms do not improve. Electronically signed by Gayla Barker, SUPERVISOR SLEEPING BAG DEPARTMENT, DIRECTOR OF KNOWLEDGE MANAGEMENT at 12/03/2019 1:28 PM CDT documented in this encounter Plan of Treatment Not on file documented as of this encounter Visit Diagnoses Diagnosis Pelvic pressure in female- Primary Other specified symptom associated with female genital organs Herpes simplex vulvovaginitis documented in this encounter Additional Health Concerns Infection Onset Date Last Indicated Resolved Time COVID - 19 11/25/2019 12/09/2019 12/11/2019 7:53 AM CDT Assessment Noted Time PHQ-9 Depression Total Score: 0 03/25/19 10:00 AM AUTOMOTIVE PAINT TECHNICIAN documented as of this encounter Care Teams Final Inspector Movement Assembly Relationship Specialty Start Date End Date Gayla Barker, METAL POLISHER, DIRECTOR OF KNOWLEDGE MANAGEMENT [address] [place] [address] PCP - General Advanced Practice Nurse 03/25/19 Ct, [facility] Cov[facility] [place] [facility] 09/03/19 documented as of this encounter
--- OUTSIDE RECORDS SUMMARY | 2024-02-24 19:45 | XMS_ITS | Encounter Summary ---
Author Organization [facility] Address [address] [facility] [place] [place] [address] Phone Care Team Providers Care Powdered Sugar Supervisor Name Role Phone Gayla Barker APRN, UNION ORGANISER Primary Care Provider Ct, Acute Covid At Home Care Unavailable Marianela vailable Reason for Visit * Reason Comments COVID-19 Encounter Details Date Type Department Care Team ([facility] Contact Info) Description 12/25/2019 8:30 AM CDT Telemedicine [facility] Digital Contact Center [address] [place] [address] Rebecca Cedeño APRN, UNION ORGANISER [address] [place] [address] Fever, unspecified fever cause (Primary Dx) Discharge Disposition: Discharged to home [...] on file Legal Sex Female 10:27 AM STRATEGIC DEBRIEFING SPECIALIST Gender Identity Not on file Sexual Orientation Not on file COVID-19 Exposure Response Date Recorded In the last month, have you been in contact with someone who was confirmed or suspected to have Coronavirus / COVID-19? Yes 12/25/2019 7:31 AM CDT documented as of this encounter Progress Notes * Rebecca Cedeño, PENNY, UNION ORGANISER - 12/25/2019 8:30 AM CDT Subjective: Pt with cough, congestion, shelton, fever, joint pain, myalgias, fatigue [facility] SUBJECTIVE Pt with cough, joint pain, myalgias, fever, fatigue, weakness SHELTON and cough since Sunday. She did have a positive exposure to covid19. 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 lupus No date: Lupus (systemic lupus erythematosus) (HCC) No date: Seizures (HCC) Social History Substance and Sexual Activity Alcohol use: Not Currently Frequency: Monthly or less Comment: occasionally Social History Tobacco Use Smoking status: Current Some Day Smoker Smokeless tobacco: Never Used Tobacco comment: about once per week Current Outpatient Medications on File Prior to Visit: ALPRAZolam (XANAX) 0.5 MG Tablet, Take 1 Tab by mouth 2 times daily as needed for Anxiety., Disp: 60 Tab, Rfl: 1 Belimumab (Benlysta) 200 MG/ML Solution Auto-injector, , Disp: , Rfl: ferrous sulfate 325 (65 Fe) MG Tablet, Take 1 Tab by mouth daily., Disp: 30 Tab, Rfl: 11 fluconazole (DIFLUCAN) 150 MG Tablet, Take 1 tablet now and repeat in 3 days. (Patient not taking: Reported on 12/25/2019), Disp: 2 Tab, Rfl: 0 hydroxychloroquine (PLAQUENIL) 200 MG Tablet, Take 1 Tab by mouth daily., Disp: 90 Tab, Rfl: 3 OMEPRAZOLE PO, Take 20 mg by mouth., Disp: , Rfl: ondansetron (Zofran) 4 MG Tablet, Take 4 mg by mouth every 8 hours as needed for Nausea - 1st line., Disp: , Rfl: predniSONE (DELTASONE) 1 MG Tablet, Take 1 Tab by mouth daily. (Patient taking differently: Take 9 mg by mouth.), Disp: 90 Tab, Rfl: 3 predniSONE (DELTASONE) 5 MG Tablet, Take 5 mg by mouth., Disp: , Rfl: No current facility-administered medications on file prior to visit. 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 OBJECTIVE . Speaking in complete sentences. No distress or coughing noted during dialogue. PHYSEXAM ASSESSMENT/PLAN Education (as applicable): - Patient counseled to remain at home unless symptoms get worse. If symptoms worsen, the patient was counseled to call back to their PCP office (or this triage line if no PCP) or go to ED immediatelyfor severe symptoms. If symptomatic or symptoms develop within those [...] not to prepare food for others. - Patient advised to contact employer now to report positive screen and symptoms.?? -For [facility] who are COVID confirmed but were not exposed at work. The MP will need a return to work note from a MD or MEKHI. These notes can be obtained preferably by PCP. However, notes can be obtained from [facility] or [facility]. If the MP is positive due to a workplace exposure, theMP should work with his or her leader to coordinate return with occupational health. - Per CDC: Employers should not require a positive COVID-19 test result or a healthcare provider's note for employees who are sick to validate their illness, qualify for sick leave, or to return to work. [facility] is not providing excuse for work notes or return to work notes at this time per CDC recommendations. Caller verbalizes understanding of the above information. Recommended disposition of pt is expecting a call from the [facility]) for a covid testing time. Diagnoses and associated orders for this visit: ??? Fever, unspecified fever cause SARS-COV-2 BY MOLECULAR Patient was assessed via Telephone for a duration of 0-15 minutes?? Patient verbally consented for this service to be performed. - Rebecca Cedeño APN, UNION ORGANISER Review of Systems Constitutional: Positive for fever and malaise/fatigue. HENT: Positive for congestion. Respiratory: Positive for cough and shortness of breath. Musculoskeletal: Positive for joint pain and myalgias. Neurological: Positive for weakness and headaches. Objective: Physical Exam Assessment and Plan See Diagnoses, Orders, Follow-up, and Instructions documented in this encounter Plan of Treatment Scheduled Orders Name Type Priority Associated Diagnoses Orde r Schedule SARS-COV-2 BY MOLECULAR Microbiology Routine Fever, unspecified fever cause Ordered: 12/25/2019 documented as of this encounter Visit Diagnoses Diagnosis Fever, unspecified fever cause- Primary documented in this encounter Additional Health Concerns Assessment Noted Time PHQ-9 Depression Total Score: 0 03/25/19 20 10:00 AM STRATEGIC DEBRIEFING SPECIALIST documented as of this encounter Care Teams Powdered Sugar Supervisor Relationship Specialty Start Date End Date Gayla Barker APRN, UNION ORGANISER [address] [place] [address] PCP - General Advanced Practice Nurse 03/25/19 Ct, [facility] Cov[facility] Home [facility] [place] Digital [facility] 09/03/19 documented as of this encounter
--- OUTSIDE RECORDS SUMMARY | 2024-02-24 19:45 | XMS_ITS | Encounter Summary ---
Author Organization [facility] Address [address] [place] [address] Care Team Providers Care Cook Room Supervisor Name Role Phone Gayla Barker RADAR SCIENTIST, MACHINE OPERATOR GENERAL Primary Care Provider Ct, Acute Covid At Home Care Unavailable Marianela vailable Encounter Details Date Type Department Care Team (Late st Contact Info) Description 12/22/2019 Lab Requisition [facility] Health Mobile Testing [facility] [address] [place] [address] [place] [address] [place] [address] Social History Tobacco Use Types Packs/Day Years [...] on file Legal Sex Female 10:27 AM HEEL SEAT SANDER Gender Identity Not on file Sexual Orientation Not on file COVID-19 Exposure Response Date Recorded In the last month, have you been in contact with someone who was confirmed or suspected to have Coronavirus / COVID-19? No / Unsure 02/03/2020 12:59 PM HEEL SEAT SANDER documented as of this encounter Plan of Treatment Not on file documented as of this encounter Procedures Procedure Name Priority Date/Time Associated Diagnosis Comments SARS-COV-2 PCR [facility] ONLY Routine 12/22/2019 11:33 AM CDT documented in this encounter Visit Diagnoses Not on filedocumented in this encounter Additional Health Concerns Infection Onset Date Last Indicated Resolved Time COVID - 19 12/25/2019 12/26/2019 12/28/2019 6:29 AM HEEL SEAT SANDER COVID - 19 01/16/2020 01/17/2020 01/23/2020 12:5 2 PM HEEL SEAT SANDER Assessment Noted Time PHQ-9 Depression Total Score: 0 03/25/19 10:00 AM HEEL SEAT SANDER documented as of this encounter Care Teams Cook Room Supervisor Relationship Specialty Start Date End Date Gayla Barker, RADAR SCIENTIST, MACHINE OPERATOR GENERAL [address] [place] [address] PCP - General Advanced Practice Nurse 03/25/19 Ct, [facility] [place] 09/03/19 documented as of this encounter
--- OUTSIDE RECORDS SUMMARY | 2024-02-24 19:45 | XMS_ITS | Encounter Summary ---
Author Organization [facility] Address [address] [place] [address] Phone Care Team Providers Care Picking Belt Operator Name Role Phone Gayla Barker APRN, REPAIRER SWITCHGEAR Primary Care Provider Ct, Acute Covid At Home Care Unavailable Marianela vailable Encounter Details Date Type Department Care Team (Late st Contact Info) Description 12/30/2019 Telephone [facility] [address] [place] [address] Gayla Barker, ANNIE, REPAIRER SWITCHGEAR [address] [place] [address] Social History Tobacco Use Types [...] on file Legal Sex Female 10:27 AM HAT AND CAP SEWER Gender Identity Not on file Sexual Orientation Not on file COVID-19 Exposure Response Date Recorded In the last month, have you been in contact with someone who was confirmed or suspected to have Coronavirus / COVID-19? Yes 12/28/2019 8:32 AM HAT AND CAP SEWER documented as of this encounter Miscellaneous Notes * Telephone Encounter - Dimple Junior RMA - 12/30/2019 3:37 PM CST Carito PierrestNOTIFIED AND VERBALIZED UNDERSTANDING. Records faxed to Ski Binding Fitter And Repairer. AND CAP SEWER * Telephone Encounter - Jack Denny PAC - 12/30/2019 3:16 PM CST Patient's chest xray showed some mild inflammation surrounding her airway. No signs of pneumonia. Take zpack, albuterol, and tessalon perles as prescribed and take to completion. Will fax xray results and prompt care note to athletic director. AND CAP SEWER * Telephone Encounter - Sharon Bridges RN - 12/30/2019 11:22 AM HAT AND CAP SEWER Patient asking for CXR results and visit summary from prompt care so she can get her infusion. restults and OV notes be sent to her athletic director FAX: [phone]. She hasn't had results given to her, asking if provider will look and advise her. Gave her albuterol, zpack, tessalon perles, asking if she should take mucinex too or other recommendations. AND CAP SEWER documented in this encounter Plan of Treatment Not on file documented as of this encounter Visit Diagnoses Not on filedocumented in this encounter Additional Health Concerns Assessment Noted Time PHQ-9 Depression Total Score: 0 03/25/19 20 10:00 AM HAT AND CAP SEWER documented as of this encounter Care Teams Picking Belt Operator Relationship Specialty Start Date End Date Gayla Barker, RUG CUTTER HELPER, REPAIRER SWITCHGEAR [address] [place] [address] PCP - General Advanced Practice Nurse 03/25/19 Ct, [facility] [place] 09/03/19 documented as of this encounter
--- OUTSIDE RECORDS SUMMARY | 2024-02-24 19:45 | XMS_ITS | Encounter Summary ---
Author Organization [facility] Care Team Providers Care Body Joiner Name Role Phone Gayla Barker ACID CORRECTION HAND, DERRICK WORKER WELL SERVICE Primary Care Provider Ct, Acute Covid At Home Care Unavailable Marianela vailable Encounter Details Date Type Department Care Team (Latest Contact Info) Description 12/05/2019 Travel Social History Tobacco Use Types Packs/Day [...] on file Legal Sex Female 10:27 AM LOCKMAKER Gender Identity Not on file Sexual Orientation [...] Depression Total Score: 0 03/25/19 10:00 AM LOCKMAKER documented as of this encounter Care Teams Body Joiner Relationship Specialty Start Date End Date Gayla Barker, ACID CORRECTION HAND, DERRICK WORKER WELL SERVICE [address] [place] [address] PCP - General Advanced Practice Nurse 03/25/19 Ct, [facility] [place] 09/03/19 documented as of this encounter
--- OUTSIDE RECORDS SUMMARY | 2024-02-24 19:45 | XMS_ITS | Encounter Summary ---
Author Organization [facility] Address [address] [place] [address] Phone Care Team Providers Care Rn Pediatric Icu Name Role Phone Gayla Barker APRN, MANUFACTURING QUALITY ENGINEER Primary Care Provider Ct, Acute Covid At Home Care Unavailable Marianela vailable Encounter Details Date Type Department Care Team (Late st Contact Info) Description 12/29/2019 Telephone [facility] [place] [address] [place] [address] NoeNahomi montoya APRN, MANUFACTURING QUALITY ENGINEER [address] [place] [address] Social History Tobacco Use Types Packs/Day [...] on file Legal Sex Female 10:27 AM BUILDING CONTRACTOR Gender Identity Not on file Sexual Orientation Not on file COVID-19 Exposure Response Date Recorded In the last month, have you been in contact with someone who was confirmed or suspected to have Coronavirus / COVID-19? Yes 12/28/2019 8:32 AM BUILDING CONTRACTOR documented as of this encounter Miscellaneous Notes * Telephone Encounter - Katharina Briceno RN - 12/30/2019 5:41 PM CST Opened in error. DING CONTRACTOR documented in this encounter Plan of Treatment Not on file documented as of this encounter Visit Diagnoses Not on filedocumented in this encounter Additional Health Concerns Assessment Noted Time PHQ-9 Depression Total Score: 0 03/25/19 10:00 AM BUILDING CONTRACTOR documented as of this encounter Care Teams Rn Pediatric Icu Relationship Specialty Start Date End Date Gayla Barker, SITE PHYSICIAN, MANUFACTURING QUALITY ENGINEER [address] [place] [address] PCP - General Advanced Practice Nurse 03/25/19 Ct, Acute Covid [facility] Home Care [place] 09/03/19 documented as of this encounter
--- OUTSIDE RECORDS SUMMARY | 2024-02-24 19:45 | XMS_ITS | Encounter Summary ---
Author Organization [facility] Address [address] [place] [address] Phone Care Team Providers Care Front End Ui Developer Name Role Phone Gayla Barker APRN, SPIDER ASSEMBLER Primary Care Provider Ct, Acute Covid At Home Care Unavailable Marianela vailable Encounter Details Date Type Department Care Team (Latest Contact Info) Description 11/13/2019 [facility] [address] [place] [id number] Francois Fernandez MD [address] [place] [id number] Hyperprolactinemia (HCC) (Primary Dx); Current chronic use of systemic steroids Social History Tobacco Use Types Packs/Day Years [...] on file Legal Sex Female 10:27 AM DIRECTOR OF SEARCH ENGINE MARKETING Gender Identity Not on file Sexual Orientation Not on file COVID-19 Exposure Response Date Recorded In the last month, have you been in contact with someone who was confirmed or suspected to have Coronavirus / COVID-19? Yes 11/13/2019 7:53 AM CDT documented as of this encounter Plan of Treatment Not on file documented as of this encounter Visit Diagnoses Diagnosis Hyperprolactinemia (HCC)- Primary Other and unspecified anterior pituitary hyperfunction Current chronic use of systemic steroids documented in this encounter Additional Health Concerns Infection Onset Date Last Indicated Resolved Time COVID - 19 11/13/2019 11/13/2019 11/16/2019 12:0 8 AM CDT Assessment Noted Time PHQ-9 Depression Total Score: 0 03/25/19 10:00 AM DIRECTOR OF SEARCH ENGINE MARKETING documented as of this encounter Care Teams Front End Ui Developer Relationship Specialty Start Date End Date Gayla Barker, REFRIGERATION SERVICE INSPECTOR, SPIDER ASSEMBLER [address] [place] [address] PCP - General Advanced Practice Nurse 03/25/19 Ct, [facility] [place] 09/03/19 documented as of this encounter
--- OUTSIDE RECORDS SUMMARY | 2024-02-24 19:45 | XMS_ITS | Encounter Summary ---
Author Organization [facility] Address [address] [place] [address] Phone Care Team Providers Care Automotive Engineering Technician Name Role Phone Gayla Barker APRN, BB SHOT PACKER Primary Care Provider Ct, Acute Covid At Home Care Unavailable Marianela vailable Reason for Visit * Reason Comments Generalized Body Aches Encounter Details Date Type Department Care Team ([facility] Contact Info) Description 12/28/2019 8:35 AM BLENDING TECHNICIAN [facility] [place] [address] [place] [address] Chirta Kaur APRN, BB SHOT PACKER [address] [place] [address] Chill (Primary Dx); Generalized body aches; Cough; Bronchiolitis Discharge Disposition: Discharged to home or Selfcare [...] on file Legal Sex Female 10:27 AM BLENDING 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 Yes 12/28/2019 8:32 AM BLENDING TECHNICIAN documented as of this encounter Last Filed Vital Signs Vital Sign Reading Time Taken Comments Blood Pressure 110/70 12/28/2019 8:53 AM BLENDING TECHNICIAN Pulse 74 12/28/2019 8:53 AM BLENDING TECHNICIAN Temperature 36.8 ??C (98.3 ??F) 12/28/2019 8:53 AM CS T Respiratory Rate 20 12/28/2019 8:53 AM BLENDING TECHNICIAN Oxygen Saturation 98% 12/28/2019 8:53 AM BLENDING TECHNICIAN Inhaled Oxygen Concentration - - Weight 74.8 kg (165 lb) 12/28/2019 8:53 AM BLENDING TECHNICIAN Height - - Body Mass Index 30.18 12/26/2019 1:35 PM CDT documented in this encounter Patient Instructions * Patient Instructions* Chitra Kaur APN, BB SHOT PACKER - 12/28/2019 8:35 AM BLENDING TECHNICIAN Images from the original note were not included. Myalgias Myalgias are another word for??muscle aches and soreness.??This is a symptom, not a disease.??Myalgias can have many causes.??A cold, the flu,??or any infection can cause them.??So can any illness with a high fever.??They may happen after?? heavy exercise or injury such as an accident or fall.??Some medicines such as statins and certain antidepressants can cause myalgias.??They can also be a symptom of long-term (chronic) health problems such as lupus,??chronic fatigue, or hypothyroidism. With these illnesses, other serious symptoms often occur with muscle pain and soreness.? Myalgias most often go away on their own. If they don't go away, come back, or are severe, you may need tests to help find the cause. Home care ?? Rest until you feel better. ?? Follow instructions that you were given for how to care for yourself. This may depend on the cause of your myalgias.? If myalgia is thought to be because of a medicine, talk with the doctor who prescribed the medicine about what to do. ?? To control pain, take prescription or leow-qdd-wiqkygi medicines as directed. Unless told not to,??you can try acetaminophen or ibuprofen. Follow-up care Follow up with your healthcare provider or as advised. If your symptoms don't go away in a few daysor if they come back, follow up with your healthcare provider for an exam and testing. When to see medical advice Call your healthcare provider for any of the following: ?? Fever of??100.4??F (38??C)??or higher, or as directed by your healthcare provider ?? Pain that gets worse and not better, or that goes away and comes back ?? New joint pains ?? New rash ?? Severe headache, neck pain, drowsiness, or confusion [employer] last reviewed this educational content on 09/26/2018 ?? [id number] The [employer]. [address] [place] [address]. All rights reserved. This information is not intended as a substitute for professional medical care. Always follow your healthcare professional's instructions. DING TECHNICIAN documented in this encounter Progress Notes * Khushbu Watters RN - 12/28/2019 8:35 AM CST Carito Ivory hSalom complains of Patient presents to office with a 6 day history of chills, body aches, fever ( up to 103.0 per patient), nausea, abdominal reynolds, diarrhea. She was seen for these complaints 2 days ago in the ER ( see ER note) Patient stated her symptoms are unchanged from ER visit with the exception that she is able to eat and drink small amounts. She is requesting a flu swab. Generalized Body Aches This is a new problem. The current episode started in the past 7 days. The problem occurs constantly. The problem has been unchanged. Associated symptoms include abdominal pain, a change in bowel habit, chills, congestion, coughing, fatigue, a fever, myalgias and nausea. She has tried rest, sleep and drinking for the symptoms. The treatment provided no relief. Today's Review of Systems Constitutional: Positive for chills, fatigue and fever. HENT: Positive for congestion. Respiratory: Positive for cough. Gastrointestinal: Positive for abdominal pain, change in bowel habit and nausea. Musculoskeletal: Positive for myalgias. DING TECHNICIAN * Chitra Kaur APN, BB SHOT PACKER - 12/28/2019 8:35 AM CST Subjective: Carito Rausch is a 29 y.o. female in the prompt care today for multiple complaints including abdominal discomfort, chronic bowel changes, body aches and pains, fatigue, cough, and fevers. Symptoms have been ongoing for some time. She states that she has been seen at the ER and nobody can figure out what is wrong with her. Severity of symptoms is moderate-severe per patient Associated symptoms as recorded in the ROS. Patient is currently taking over the counter nothing for the symptoms. This has provided minimal cecilio relief in the symptoms. Smoker/vapes: smokes marijuana Recent ER visit on 12/25/2019. Labs were reviewed. Noted positive drug screen for cocaine. Patient does admit to using cocaine. She was swabbed for COVID and it did come back negative. She was given some steroids and pain medication in the ER. Nothing was sent out to the pharmacy. Past, family, and social history was reviewed. Review of Systems Constitutional: Positive for chills, fatigue and fever. HENT: Positive for congestion, ear pain and sore throat. Respiratory: Positive for cough. Gastrointestinal: Positive for abdominal pain and diarrhea. Genitourinary: Positive for flank pain. Musculoskeletal: Positive for arthralgias and joint swelling. Neurological: Positive for headaches. Objective: Physical Exam Vitals signs and nursing note reviewed. HENT: Right Ear: Tympanic membrane and ear canal normal. Left Ear: Tympanic membrane and ear canal normal. Mouth/Throat: Pharynx: Oropharynx is clear. Cardiovascular: Rate and Rhythm: Normal rate. Pulmonary: Effort: Pulmonary effort is normal. Breath sounds: Normal breath sounds. Neurological: General: No focal deficit present. Mental Status: She is alert and oriented to person, place, and time. Psychiatric: Mood and Affect: Mood normal. Vitals: 12/28/19 0853 BP: 110/70 BP Location: Left Arm BP Position: Sitting BP Cuff Size: Large Pulse: 74 Resp: 20 Temp: 98.3 ??F (36.8 ??C) TempSrc: Temporal SpO2: 98% Weight: 165 lb (74.8 kg) UA was done today and noted to be clean in the clinic. Culture will be sent as patient states that she has a history of utis. She also states that she had bronchitis about 2 months ago and did not complete her medication as prescribed. She is requesting a repeat chest xray today. Assessment and Plan See Diagnoses, Orders, Follow-up, and Instructions Diagnoses and all orders for this visit: Chill - POCT INFLUENZA A & B - POCT UA AUTOMATED W/O MICRO Generalized body aches - POCT INFLUENZA A & B - POCT UA AUTOMATED W/O MICRO - CULTURE, URINE; Future - CULTURE, URINE Cough - XR CHEST 2 VIEWS Bronchiolitis - azithromycin (Zithromax Z-Maximilian) 250 MG Tablet; 2 tab(s) daily for 1 day, then 1 tab(s) daily for days 2-5. - albuterol (ProAir HFA) 108 (90 Base) MCG/ACT Aerosol Solution; take 2 Puffs by inhalation every 4hours as needed for Wheezing or Cough. Care as instructed on AVS If medication was prescribed it was sent to the pharmacy. Take all medication as prescribed. Do not skip a dose and take until completed. Follow up with PCP if the symptoms do not improve Go to the ER if symptoms become severe AVS from today was printed, discussed with patient/family and given to patient/family DING TECHNICIAN documented in this encounter Plan of Treatment Not on file documented as of this encounter Procedures Procedure Name Priority Date/Time Associated Diagnosis Comments XR CHEST 2 VIEWS Stat with Interpretation 12/28/2019 9:37 AM BLENDING TECHNICIAN Cough CULTURE, URINE Today 12/28/2019 9:31 AM BLENDING TECHNICIAN Generalized body aches POCT UA AUTOMATED W/O MICRO Routine 12/28/2019 9:07 AM BLENDING TECHNICIAN Chill Generalized body aches POCT INFLUENZA A & B Routine 12/28/2019 9:03 AM BLENDING TECHNICIAN Chill Generalized body aches documented in this encounter Results * XR CHEST 2 VIEWS (12/28/2019 9:37 AM BLENDING TECHNICIAN) Anatomical Region Laterality Modality Chest N/A Digital Radiogra phy 12/28/2019 9:59 AM BLENDING TECHNICIAN Impressions 12/28/2019 10:01 AM BLENDING TECHNICIAN IMPRESSION: ??Mildly coarsened pulmonary markings, to include redemonstration of mild peribronchial inflammatory changes at the bilateral, right greater than left, bases without focal consolidation; no pleural effusion. Narrative 12/28/2019 10:01 AM BLENDING TECHNICIAN EXAM DESCRIPTION: ?? XR CHEST 2 VIEWS [...] AM T: ??12/28/2019 9:59 AM Report ID: [id number] Reading Location: ??[id number] Procedure Note Bruce Ramsey MD - 12/28/2019 [...] Bruce Ramsey M.D. MARIAA: MARIAA Report ID: [id number] Reading Location: [id number] IMPRESSION: Mildly coarsened pulmonary markings, to include redemonstration of mild peribronchial inflammatory changes at the bilateral, right greater than left, bases without focal consolidation; no pleural effusion. Chitra Kaur APRN, CNP IMG DIAGNOSTIC OR DERABLES Final Result * CULTURE, URINE (12/28/2019 9:31 AM BLENDING TECHNICIAN) Pathologist [facility] CULTURE RESULTS MIXED GROWTH OF ONE OR MORE DISTAL URETHRAL CONTAMINANTS 12/30/2019 12:03 PM BLENDING TECHNICIAN [facility] Culture URINE SPECIMEN / Unknown Non-Phlebotomy Collection / Unknown 12/28/2019 9:31 AM BLENDING TECHNICIAN 12/28/2019 9:31 AM BLENDING TECHNICIAN Chitra Kaur APRN, CNP MICROBIOLOGY - GE NERAL ORDERABLES Final Result [facility] [address] [place] [address], * POCT UA AUTOMATED W/O MICRO (12/28/2019 9:07 AM BLENDING TECHNICIAN) SPECIFIC GRAVITY 1.025 1.003 - 1.030 URINE PH 5.0 5.0 - 9.0 UR, LEUKOCYTES Negative Negative Murphy/uL UR, NITRITE Negative Negative UR, PROTEIN Negative Negative mg/dL UR, GLUCOSE Normal Normal mg/dL UR, KETONE Negative Negative mg/dL UR, UROBILINOGEN Normal Normal mg/dL UR, BILIRUBIN Negative Negative mg/dL UR. BLOOD Negative Negative URINALYSIS COLOR Yellow URINALYSIS CLARITY Clear Urine 12/28/2019 9:07 AM BLENDING TECHNICIAN Chitra Kaur APRN, HARSHA POINT OF CARE MARY LOU TING (MANUAL) Final Result * POCT INFLUENZA A & B (12/28/2019 9:03 AM BLENDING TECHNICIAN) POC INFLU A Presumptive negative Group A POC INFLU B Presumptive negative Group B POC INFLUENZA CONTROL English Composition Instructor Pass 12/28/2019 9:03 AM BLENDING TECHNICIAN Chitra Kaur APRN, HARSHA POINT OF CARE MARY LOU TING (MANUAL) Final Result documented in this encounter Visit Diagnoses Diagnosis Chill- Primary Chills (without fever) Generalized body aches Cough Bronchiolitis Acute bronchiolitis due to other infectious organisms documented in this encounter Additional Health Concerns Assessment Noted Time PHQ-9 Depression Total Score: 0 03/25/19 20 10:00 AM BLENDING TECHNICIAN documented as of this encounter Care Teams Automotive Engineering Technician Relationship Specialty Start Date End Date Gayla Barker, ANNIE, BB SHOT PACKER [address] [place] [address] PCP - General Advanced Practice Nurse 03/25/19 Ct, Acute Covid [facility] Home Care [place] 09/03/19 documented as of this encounter
--- OUTSIDE RECORDS SUMMARY | 2024-02-24 19:45 | XMS_ITS | Encounter Summary ---
Author Organization [facility] Address [address] [place] [address] Phone Care Team Providers Care Solar Installer Name Role Phone Gayla Barker APRN, HARSHA Primary Care Provider Ct, Acute Covid At Home Care Unavailable Marianela vailable Reason for Visit * Reason Onset Date Comments Results 11/14/2019 Encounter Details Date Type Department Care Team (Late st Contact Info) Description 11/14/2019 Telephone [facility] - Primary Care - [place] [address] [place] [address] Gayla Barker APRN, CNP [address] [place] [address] Results Social History Tobacco Use Types Packs/Day [...] on file Legal Sex Female 10:27 AM AMPOULE EXAMINER Gender Identity Not on file Sexual Orientation Not on file COVID-19 Exposure Response Date Recorded In the last month, have you been in contact with someone who was confirmed or suspected to have Coronavirus / COVID-19? Yes 11/13/2019 7:53 AM CDT documented as of this encounter Miscellaneous Notes * Telephone Encounter - Yazmin Velazquez RN - 11/17/2019 9:50 AM CDT Returned pts call per OBOOK message dated 11/17/19. [facility] From: Carito A Shalom Created: 11/17/2019 6:59 AM *-*-*This message has not been handled.*-*-* Radames Landeros I???m not seeing all of my test results is there anyway you could call me and review them because some did not release to my chart that way I can write them down before tomorrow?? Thank you, Carito [phone] * Telephone Encounter - Leti Gusman RN - 11/14/2019 3:50 PM CDT Per PCP, labs were ordered per patient request as training and development head requested them. My chart message sent to patient they are available to view per PCP. * Telephone Encounter - Leti Gusman RN - 11/14/2019 3:49 PM CDT ----- Message from Gayla Barker APN, HOP SEPARATOR sent at 11/14/2019 2:29 PM CDT ----- DNA double strand elevated but not as elevated as previous. BARAK is positive. C3 is normal, C4 is normal. C reactive protein is in normal range. Sed rate is in normal range. documented in this encounter Plan of Treatment Not on file documented as of this encounter Visit Diagnoses Not on filedocumented in this encounter Additional Health Concerns Infection Onset Date Last Indicated Resolved Time COVID - 19 11/13/2019 11/13/2019 11/16/2019 12:0 8 AM CDT Assessment Noted Time PHQ-9 Depression Total Score: 0 03/25/19 10:00 AM AMPOULE EXAMINER documented as of this encounter Care Teams Solar Installer Relationship Specialty Start Date End Date Gayla Barker, MANAGER BUSINESS INFORMATION, HOP SEPARATOR [address] [place] [address] PCP - General Advanced Practice Nurse 03/25/19 Ct, Acute Covid At Home Care [place] Digital [place]KH[place] 09/03/19 documented as of this encounter
--- OUTSIDE RECORDS SUMMARY | 2024-02-24 19:45 | XMS_ITS | Encounter Summary ---
Author Organization [employer] Care Team Providers Care Roofing Contractor Name Role Phone Gayla Barker BRIMMER BLOCKER, RECORDS MANAGEMENT SPECIALIST Primary Care Provider Ct, [facility] Unavailable Marianela vailable Encounter Details Date Type Department Care Team (Latest Contact Info) Description 11/25/2019 Travel Social History Tobacco Use Types Packs/Day [...] on file Legal Sex Female 10:27 AM ALUMINUM WELDER Gender Identity Not on file Sexual Orientation [...] Depression Total Score: 0 03/25/19 10:00 AM ALUMINUM WELDER documented as of this encounter Care Teams Roofing Contractor Relationship Specialty Start Date End Date Gayla Barker, BRIMMER BLOCKER, RECORDS MANAGEMENT SPECIALIST [address] [place] [address] PCP - General Advanced Practice Nurse 03/25/19 Ct[facility] [place] [facility] 09/03/19 documented as of this encounter
--- OUTSIDE RECORDS SUMMARY | 2024-02-24 19:45 | XMS_ITS | Encounter Summary ---
Author Organization [facility] Address [address] [place] [address] [place] [address] Phone Care Team Providers Care Ship Boat Or Barge Mate Name Role Phone Gayla Barker APRN, FARM LABORER Primary Care Provider Ct, [facility] Unavailable Marianela vailable Brian Mon MD Primary Care Provider [phone] Reason for Visit * Reason Onset Date Comments COVID-19 12/20/2019 Encounter Details Date Type Department Care Team (Late st Contact Info) Description 12/20/2019 Nurse Triage [facility] Digital Contact Center [address] [place] [id number] Gayla Barker APRN, FARM LABORER [address] [place] [address] COVID-19 Social History Tobacco Use Types Packs/Day [...] on file 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 Yes 12/20/2019 7:46 PM CDT documented as of this encounter Miscellaneous Notes * Telephone Encounter - Malu Triplett RN - 12/20/2019 7:46 PM CDT Images from the original note were not included. Travel Screening Question Response In the last month, have you been in contact with someone who was confirmed or suspected to have Coronavirus / COVID-19? Yes Have you had a COVID-19 viral test in the last 14 days? Yes - Negative result Do you have any of the following new or worsening symptoms? Runny nose;Fatigue;Diarrhea;Abdominal pain;Vomiting;Chills;Muscle pain;Cough;Severe headache;Weakness;Joint pain;Shortness of breath;Loss of smell;Loss of taste Have you traveled internationally in the last month? No Travel History Travel since 11/20/19 No documented travel since 11/20/19 Patients whose symptoms require immediate emergency assistance [...] further on next steps. Did patient refuse customer care voice consultant? no. ??? If patient refuses to speak to a nurse: Please continue to monitor your symptoms and if they get worse, do not hesitate to call us back. We are here 18/09. We recommend you refer to the CDC website regarding guidelines for self- isolation and thank you for calling. Malu Triplett RN Travel Screening Question Response In the last month, have you been in contact with someone who was confirmed or suspected to have Coronavirus / COVID-19? Yes Have you had a COVID-19 viral test in the last 14 days? Yes - Negative result Do you have any of the following new or worsening symptoms? Runny nose;Fatigue;Diarrhea;Abdominal pain;Vomiting;Chills;Muscle pain;Cough;Severe headache;Weakness;Joint pain;Shortness of breath;Loss of smell;Loss of taste Have you traveled internationally in the last month? No Travel History Travel since 11/20/19 No documented travel since 11/20/19 COVID-19 Testing Priority for Carito Rausch: 2 Nurse to triage SITUATION: Patient calling with sxs and positive exposure BACKGROUND: pt was tested a week ago but was negative, however has many more sxs now. Hx of asthma.Daily prednisone for lupus. Gume's disease. ASSESSMENT: Symptom Description / Location: sxs started on but have progressively gotten worse. SOB ismild but pt states has used her inhaler more than usual. VERY fatigued. Pain (0-10): headache comes and goes but is pretty terrible when she has it Temp: denies fever Treatment / Response: mucinex, nyquil cold and flu, RECOMMENDATION: See care advice and disposition for [...] ask them to send a request via [email or web address] to their provider (you may need to activate a [email or web address] account with them). You may also route an excuse note request to the provider. Inform the patient that the provider will determine if a note will be sent and let them know that a telephone visit may be required. Caller verbalizes understanding of the above information. Malu Triplett RN Reason for Disposition ? ? MILD difficulty breathing (e.g., minimal/no SOB at rest, SOB with walking, pulse <100) Protocols used: CORONAVIRUS (COVID-19) DIAGNOSED OR [id number] documented in this encounter Plan of Treatment Not on file documented as of this encounter Visit Diagnoses Not on filedocumented in this encounter Additional Health Concerns Infection Onset Date Last Indicated Resolved Time COVID - 19 12/25/2019 12/26/2019 12/28/2019 6:29 AM CAFE TEAM MEMBER COVID - 19 01/16/2020 01/17/2020 01/23/2020 12:5 2 PM CAFE TEAM MEMBER COVID - 19 03/18/2020 03/18/2020 03/19/2020 6:44 AM CAFE TEAM MEMBER COVID - 19 12/06/2020 12/06/2020 12/26/2020 12:1 6 AM CDT COVID - 19 03/05/2021 03/05/2021 03/05/2021 6:11 PM CAFE TEAM MEMBER COVID - 19 Confirmed 03/05/2021 03/05/2021 022 12:16 AM CAFE TEAM MEMBER COVID - 19 11/14/2021 11/18/2021 11/28/2021 12:1 6 AM CDT COVID - 19 01/08/2022 01/08/2022 01/18/2022 12:1 6 AM CAFE TEAM MEMBER COVID - 19 04/25/2022 04/25/2022 05/05/2022 12:1 6 AM CAFE TEAM MEMBER COVID - 19 10/17/2023 10/17/2023 10/17/2023 1:56 PM CDT Assessment Noted Time PHQ-9 Depression Total Score: 0 03/25/19 20 10:00 AM CAFE TEAM MEMBER documented as of this encounter Care Teams Ship Boat Or Barge Mate Relationship Specialty Start Date End Date Gayla Barker APRN, FARM LABORER [address] [place] [address] PCP - General Advanced Practice Nurse 03/25/19 Brian Mon MD [address] [place] [address] PCP - General Internal Medicine 10/17/23 Ct, [facility] [place] [facility] 09/03/19 documented as of this encounter
--- OUTSIDE RECORDS SUMMARY | 2024-02-24 19:45 | XMS_ITS | Encounter Summary ---
Author Organization [facility] Address [address] [facility] 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 Yes 12/31/2019 1:08 PM BAND BIAS MACHINE OPERATOR documented as of this encounter Miscellaneous Notes * Telephone Encounter - Krista Espinoza - 12/31/2019 1:31 PM CST Patient declined triage as she wants a rapid test. She states she will call her steel erector apprentice and see what they recommend or go to urgent care again. BIAS MACHINE OPERATOR * Telephone Encounter - Nallely Sheppard RN - 12/31/2019 1:08 PM BAND BIAS MACHINE OPERATOR Images from the original note were not included. Travel Screening Question Response In the last month, have you been in contact with someone who was confirmed or suspected to have Coronavirus / COVID-19? 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 Yes - Negative result (Tested at [facility] on 12/25) Do you have any of the following new or worsening symptoms? Shortness of breath;Runny nose;Sore throat;Cough;Muscle pain;Chills;Fever;Loss of taste;Loss of smell;Severe headache;Fatigue;Joint pain;Vomiting;Diarrhea;Abdominal pain;Weakness;Red eye;Bruising or bleeding (Nasal congestion, Sneezing, Pressure in face) Have you traveled internationally in the last month? No Travel History Travel since 11/30/19 No documented travel since 11/30/19 Patients whose symptoms require immediate emergency assistance [...] further on next steps. Did patient refuse quarter inspector? no. ??? If patient refuses to speak to a nurse: Please continue to monitor your symptoms and if they get worse, do not hesitate to call us back. We are here 18/09. We recommend you refer to the CDC website regarding guidelines for self- isolation and thank you for calling. NALLELY SHEPPARD, RN BIAS MACHINE OPERATOR documented in this encounter Plan of Treatment Not on file documented as of this encounter Visit Diagnoses Not on filedocumented in this encounter Additional Health Concerns Assessment Noted Time PHQ-9 Depression Total Score: 0 03/25/19 10:00 AM BAND BIAS MACHINE OPERATOR documented as of this encounter Care Teams Fermenter Relationship Specialty Start Date End Date Gayla Barker, MANAGER OF HOUSEKEEPING, MARGIN CLERK [address] [place] [address] PCP - General Advanced Practice Nurse 03/25/19 Ct, [facility] [place] [facility] 09/03/19 documented as of this encounter
--- OUTSIDE RECORDS SUMMARY | 2024-02-24 19:45 | XMS_ITS | Encounter Summary ---
Author Organization [facility] Address [address] [facility] [place] [address] Phone Care Team Providers Care Tower Erector Helper Name Role Phone Gayla Barker APRN, HARSHA Primary Care Provider Ct, Acute Covid [facility] Home [facility] Unavailable Marianela vailable Reason for Visit * Reason Onset Date Comments COVID-19 12/25/2019 Encounter Details Date Type Department Care Team (Late st Contact Info) Description 12/25/2019 Nurse Triage [facility] Digital Contact Center [address] [place] [phone] Gayla Barker APRN, PARTNER MANAGER [address] [place] [address] COVID-19 Social History Tobacco Use Types Packs/Day [...] on file Legal Sex Female 10:27 AM DRAPERY COUNSELOR Gender Identity Not on file Sexual Orientation Not on file COVID-19 Exposure Response Date Recorded In the last month, have you been in contact with someone who was confirmed or suspected to have Coronavirus / COVID-19? Yes 12/25/2019 7:31 AM CDT documented as of this encounter Miscellaneous Notes * Telephone Encounter - Luzma Carlos RN - 12/25/2019 7:31 AM CDT Images from the original note were not included. Travel Screening Question Response In the last month, have you been in contact with someone who was confirmed or suspected to have Coronavirus / COVID-19? Yes Have you had a COVID-19 viral test in the last 14 days? Yes - Negative result Do you have any of the following new or worsening symptoms? Chills;Muscle pain;Joint pain;Fatigue;Fever;Weakness;Severe headache;Runny nose (stuffy) Have you traveled internationally in the last month? No Travel History Travel since 11/25/19 No documented travel since 11/25/19 Patients whose symptoms require immediate emergency assistance [...] further on next steps. Did patient refuse conductor yard? no. ??? If patient refuses to speak to a nurse: Please continue to monitor your symptoms and if they get worse, do not hesitate to call us back. We are here 18/09. We recommend you refer to the CDC website regarding guidelines for self- isolation and thank you for calling. LUZMA CARLOS RN Travel Screening Question Response In the last month, have you been in contact with someone who was confirmed or suspected to have Coronavirus / COVID-19? Yes Have you had a COVID-19 viral test in the last 14 days? Yes - Negative result Do you have any of the following new or worsening symptoms? Chills;Muscle pain;Joint pain;Fatigue;Fever;Weakness;Severe headache;Runny nose (stuffy) Have you traveled internationally in the last month? No Travel History Travel since 11/25/19 No documented travel since 11/25/19 COVID-19 Testing Priority for Carito Rausch: 2 Nurse to triage SITUATION: Patient calling with COVID like symptoms. 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 She begin feeling ill Sunday night, came home Sunday morning. She was notified that 4 of her players and3 parents tested positive. Sunday her symptoms were more amplified. To the point she was having fever, chills, pain and difficulty sleeping. She also is a LUPUS patient. ASSESSMENT: Symptom Description / Location: Chills;Muscle pain;Joint pain;Fatigue;Fever;Weakness;Severe headache;Runny nose (stuffy). Pain (0-10): Horrible took Toradol to sleep. Would not quantify, asked multiple times. Temp: 101.3 F Orally this am Treatment / Response: She took toradol last night for pain(helped her sleep), and tylenol after taking her temperature this morning. RECOMMENDATION: See care advice and disposition for [...] ask them to send a request via Doostang to their provider (you may need to activate a Doostang account with them). You may also route an excuse note request to the provider. Inform the patient that the provider will determine if a note will be sent and let them know that a telephone visit may be required. Caller verbalizes understanding of the above information. LUZMA CARLOS RN Reason for Disposition ??? [1] COVID-19 infection suspected by caller or triager AND [2] mild symptoms (cough, fever, or others) AND [3] no complications or SOB Protocols used: CORONAVIRUS (COVID-19) DIAGNOSED OR [id number] documented in this encounter Plan of Treatment Not on file documented as of this encounter Visit Diagnoses Not on filedocumented in this encounter Additional Health Concerns Assessment Noted Time PHQ-9 Depression Total Score: 0 03/25/19 20 10:00 AM DRAPERY COUNSELOR documented as of this encounter Care Teams Tower Erector Helper Relationship Specialty Start Date End Date Gayla Barker, SUBSTANCE ABUSE COUNSELOR, PARTNER MANAGER [address] [place] [address] PCP - General Advanced Practice Nurse 03/25/19 Ct, [facility] [place] [facility] 09/03/19 documented as of this encounter
--- OUTSIDE RECORDS SUMMARY | 2024-02-24 19:45 | XMS_ITS | Encounter Summary ---
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
--- OUTSIDE RECORDS SUMMARY | 2024-02-24 19:45 | XMS_ITS | Encounter Summary ---
Author Organization [facility] Care Team Providers Care Pants Busheler Name Role Phone Gayla Barker COSTUME DESIGN TEACHER, PATTERN CLEANER Primary Care Provider Ct, [facility] Home [facility] Unavailable Marianela vailable Encounter Details Date Type Department Care Team (Latest Contact Info) Description 12/20/2019 Travel Social History Tobacco Use Types Packs/Day [...] on file Legal Sex Female 10:27 AM ARTIFICIAL BREEDING RANCH SUPERVISOR Gender Identity Not on file Sexual [...] Total Score: 0 03/25/19 20 10:00 AM ARTIFICIAL BREEDING RANCH SUPERVISOR documented as of this encounter Care Teams Pants Busheler Relationship Specialty Start Date End Date Gayla Barker, COSTUME DESIGN TEACHER, PATTERN CLEANER [address] [place] [address] PCP - General Advanced Practice Nurse 03/25/19 Ct, [facility] [place] [facility] 09/03/19 documented as of this encounter
--- OUTSIDE RECORDS SUMMARY | 2024-02-24 19:45 | XMS_ITS | Encounter Summary ---
Author Organization [facility] Address [address] 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 No / Unsure 12/05/2019 2:01 PM CDT documented as of this encounter Miscellaneous Notes * Telephone Encounter - Dimple Junior RMA - 12/05/2019 2:46 PM CDT Pt was scheduled for a video visit but was having problems logging in. Called pt and she needs an off work slip for Dec 04 & due to illness. Ok per Gayla to give patient off work slip. documented in this encounter Plan of Treatment Not on file documented as of this encounter Visit Diagnoses Not on filedocumented in this encounter Additional Health Concerns Infection Onset Date Last Indicated Resolved Time COVID - 19 11/25/2019 12/09/2019 12/11/2019 7:53 AM CDT Assessment Noted Time PHQ-9 Depression Total Score: 0 03/25/19 10:00 AM BUSINESS INVESTOR documented as of this encounter Care Teams Dental Laboratory Manager Relationship Specialty Start Date End Date Gayla Barker, COSMETICS COUNTER MANAGER, AREA INTELLIGENCE TECHNICIAN [address] [place] [address] PCP - General Advanced Practice Nurse 03/25/19 Ct, [facility] [place] [facility] 09/03/19 documented as of this encounter
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
--- OUTSIDE RECORDS SUMMARY | 2024-02-24 19:46 | XMS_ITS | Encounter Summary ---
Author Organization [facility] Address [address] [facility] [place] [address] Phone Care Team Providers Care Bookkeeper Name Role Phone Gayla Barker APRN, PROFESSOR OF HISTORICAL THEOLOGY Primary Care Provider Ct, Acute Covid At Home Care Unavailable Marianela vailable Reason for Visit * Reason Onset Date Comments Results 10/02/2019 wants results of covid test Encounter Details Date Type Department Care Team (Late st Contact Info) Description 10/02/2019 Nurse Triage [facility] [address] [place] [address] Gayla Barker, ANNIE, PROFESSOR OF HISTORICAL THEOLOGY [address] [place] [address] Results (wants results of covid test ) Social History Tobacco Use Types Packs/Day [...] on file 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 No / Unsure 10/01/2019 9:29 AM CDT documented as of this encounter Miscellaneous Notes * Telephone Encounter - Sara Sharpe RN - 10/02/2019 9:30 PM CDT SITUATION (caller perception/concerns): multiple symptoms BACKGROUND (events leading up to call): States got a call tonight from someone from [facility] stating that her COVID test was positive. Reviewed with patient that her COVID is negative. Confirmed with patient she has only had one COVID test done. When should she go to the ED? Feels awful. Most symptoms are the same as when seen in the ED yesterday but chest pain is worse. Tessalon Perles not helping cough. Feels like needs to cough stuff up. 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 ASSESSMENT: Denies fever today. Weakness - all over. Able to walk steadily to bathroom within her home. Body aches. Cough. Shortness of breath. Feels like I have water in chest. Ate this morning and early afternoon. Drank 3 bottles of water today. Lightheadedness - had that yesterday, not worse. Been feeling like this for one week. Shortness of breath at rest. Chest pain 3/10 and constant. Hurts worst when laying flat. Hard to sleep.Feels like choking when lays down, feels mucus in throat. RECOMMENDATION: Recommend ED now. Patient agrees, doesn't know what ED going to. Reason for Disposition ??? MODERATE difficulty breathing (e.g., speaks in phrases, SOB even at rest, pulse 100-120) Protocols used: INFECTION ON ANTIBIOTIC FOLLOW-UP CALL-A- * Telephone Encounter - Dayna Crawley RN - 10/02/2019 12:32 PM CDT Patient checking on results again. Results still in process. Patient is aware and verbalizes understanding. * Telephone Encounter - Yaquelin Hopkins RN - 10/02/2019 11:24 AM CDT .Pt is calling re: SITUATION: ==wants results of covid test covid test done at got levaquin at for bronchitis RESULTS STILL PENDED Patient notified. Verbalized understanding I apologized and told pt that : Results arent done yet @ hosp lab documented in this encounter Plan of Treatment Not on file documented as of this encounter Visit Diagnoses Not on filedocumented in this encounter Additional Health Concerns Infection Onset Date Last Indicated Resolved Time COVID - 19 10/01/2019 10/01/2019 10/04/2019 2:42 AM CDT Assessment Noted Time PHQ-9 Depression Total Score: 0 03/25/19 10:00 AM DISEASE CONTROL INSPECTOR documented as of this encounter Care Teams Bookkeeper Relationship Specialty Start Date End Date Gayla Barker, DESK MONITOR, PROFESSOR OF HISTORICAL THEOLOGY [address] [place] [address] PCP - General Advanced Practice Nurse 03/25/19 Ct, [facility] [place] [employer] [place] 09/03/19 documented as of this encounter
--- OUTSIDE RECORDS SUMMARY | 2024-02-24 19:46 | XMS_ITS | Encounter Summary ---
Author Organization [facility] Address [address] [place] [address] Phone Care Team Providers Care Student Assistant Name Role Phone Gayla Barker APRN, LOAN OFFICER Primary Care Provider Ct, [facility] Unavailable Marianela vailable Reason for Visit * Reason Comments Seizure Encounter Details Date Type Department Care Team (Late st Contact Info) Description 09/21/2019 12:37 PM CDT - 09/21/2019 2:36 PM CDT Emergency [facility] Emergency [address] [place] [address] Faizan Loco, PAC [address] [place] [address] Seizure (HCC) Discharge Disposition: Discharged to home or [...] file Legal Sex Female 10:27 AM 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 Yes 09/21/2019 12:33 PM CDT documented as of this encounter Last Filed Vital Signs Vital Sign Reading Time Taken Comments Blood Pressure 135/86 09/21/2019 2:34 PM CDT Pulse 80 09/21/2019 2:34 PM CDT Temperature 37 ??C (98.6 ??F) 09/21/2019 12:31 PM CDT Respiratory Rate 18 09/21/2019 2:34 PM CDT Oxygen Saturation 100% 09/21/2019 2:34 PM CDT Inhaled Oxygen Concentration - - Weight 72.6 kg (160 lb) 09/21/2019 12:31 PM CDT Height 160 cm (5' 3 ) 09/21/2019 12:31 PM CDT Body Mass Index 28.34 09/21/2019 12:31 PM CDT documented in this encounter Discharge Instructions * Attachments The following attachments cannot be sent through Care Everywhere. * Seizure, Recurrent (Adult) (Citizen Of [place]) documented in this encounter Medications at Time of Discharge hydroxychloroqui ne (PLAQUENIL) 200 MG Tablet Take 1 Tab by mouth daily. 90 Tab 3 05/09/2019 albuterol 108 (90 Base) MCG/ACT Aerosol Solution take 2 Puffs by inhalation every 4 hours as needed for Cough (shortness of breath). 8.5 g 06/18/2019 0 ALPRAZolam (XANAX) 0.25 MG Tablet Take 1 Tab by mouth 3 times daily as needed for Anxiety. 30 Tab 09/05/2019 0 divalproex (DEPAKOTE) 250 MG Tablet Delayed Response Take 1 Tab by mouth 3 times daily. 90 Tab 09/21/2019 0 ergocalciferol (VITAMIN D) 37309 UNIT Capsule TAKE 1 CAPSULE BY MOUTH ONE TIME PER WEEK 06/21/2019 0 Escitalopram Oxalate (LEXAPRO) 5 MG Tablet Take 5 mg by mouth daily. 0 OMEPRAZOLE PO Take 20 mg by mouth. 1 ondansetron (ZOFRAN) 4 MG Tablet Take 1-2 Tabs by mouth every 8 hours as needed for Nausea - 1st line. 10 Tab 08/31/2019 0 predniSONE (DELTASONE) 1 MG Tablet Take 1 Tab by mouth daily. 90 Tab 3 09/05/2019 1 predniSONE (DELTASONE) 10 MG Tablet Take 1 Tab by mouth daily. 90 Tab 3 07/25/2019 0 documented as of this encounter ED Notes * Samantha Sim RN - 09/21/2019 2:35 PM CDT Patient left with receiving DC paperwork. Patient knows all information * Samantha Sim RN - 09/21/2019 2:35 PM CDT Patient discharged. Discharge instructions and patient educational material reviewed with patient; questions and concerns addressed; patient verbalizes understanding, using teach back. Patient was given 1 prescriptions. Patient was informed no drinking alcohol, driving or operating heavy machinery while taking narcotics or muscle relaxants. Patient discharged per ambulatory mode with self as responsible alliance party. * Faizan Loco, CARIDAD - 09/21/2019 1:30 PM CDT Chief Complaint Patient presents with ??? Seizure Carito Rausch is a 29 y.o. 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 Patient has a complicated sz history. Recently dxd with lupus cerebritis. Most recent evaluation was 09/10 at [facility] ED. She was established with neurology there and hadabnormal EEG with abnormality found in temporal lobe. She is scheduled to see neuro 09/22 and have MRI 09/23. Patient states her sz was unwitnessed today. Patient states sz is consistent with previous sz activity in that she does not lose consciousness and is acutely aware during activity raising concern for psychogenic origin of sz. Patient denies changes to vision or speech, no N/T or focal motorweakness. Patient has been tried on carbamazepine and keppra but did not tolerate these medicationsdue to side effecs. At her [facility] ED evaluation she was prescribed depakote but has not started this as she was unaware it was prescribed despite this being reinforced by her PCP at follow up 09/17/2019. She is on no other antiepileptics. Past Medical History Positives No date: Asthma No date: CKD (chronic kidney disease) stage 1, GFR 90 ml/min or greater Comment: as a result of lupus No date: Lupus (systemic lupus erythematosus) (HCC) No date: Seizures (HCC) No current facility-administered medications for this encounter. Current Outpatient Medications Medication Sig Dispense Refill ??? albuterol 108 (90 Base) MCG/ACT Aerosol Solution take 2 Puffs by inhalation every 4 hours as needed for Cough (shortness of breath). 8.5 g 0 ??? ALPRAZolam (XANAX) 0.25 MG Tablet Take 1 Tab by mouth 3 times daily as needed for Anxiety. 30 Tab 0 ??? divalproex (DEPAKOTE) 250 MG Tablet Delayed Response Take 1 Tab by mouth 3 times daily. 90 Tab 0 ??? ergocalciferol (VITAMIN D) 69311 UNIT Capsule TAKE 1 CAPSULE BY MOUTH ONE TIME PER WEEK ??? Escitalopram Oxalate (LEXAPRO) 5 MG Tablet Take 5 mg by mouth daily. ??? hydroxychloroquine (PLAQUENIL) 200 MG Tablet Take 1 Tab by mouth daily. 90 Tab 3 ??? OMEPRAZOLE PO Take 20 mg by mouth. ??? ondansetron (ZOFRAN) 4 MG Tablet Take 1-2 Tabs by mouth every 8 hours as needed for Nausea - 1st line. 10 Tab 0 ??? predniSONE (DELTASONE) 1 MG Tablet Take 1 Tab by mouth daily. 90 Tab 3 ??? predniSONE (DELTASONE) 10 MG Tablet Take 1 Tab by mouth daily. 90 Tab 3 Allergies Allergen Reactions ??? Effexor [Venlafaxine] Itching ??? Medrol [Methylprednisolone] Anaphylaxis Past Medical History [...] Tobacco comment: about once per week Substance and Sexual Activity ??? Alcohol use: Not Currently Frequency: Monthly or less Comment: occasionally ??? Drug use: Not Currently Types: Marijuana ??? Sexual activity: Not on file Lifestyle ??? Physical activity: Days per week: Not on file Minutes per session: Not on file ??? Stress: Not on file Relationships ??? Social connections: Talks on phone: Not on file Gets together: Not on file Attends worship service: Not on file Active member of [...] History Narrative ??? Not on file BP 135/86 Pulse 80 Temp 98.6 ??F (37 ??C) (Tympanic) Resp 18 Ht 5' 3 (1.6 m) Wt 160 lb (72.6 kg) LMP 08/26/2019 SpO2 100% BMI 28.34 kg/m?? Review of Systems Constitutional: Negative for chills, fatigue and fever. HENT: Negative for congestion and sore throat. Respiratory: Negative for cough, chest tightness, shortness of breath and wheezing. Cardiovascular: Negative for chest pain and palpitations. Gastrointestinal: Negative for abdominal pain, constipation, diarrhea, nausea and vomiting. Genitourinary: Negative for dysuria, frequency, hematuria and urgency. Musculoskeletal: Negative for arthralgias and back pain. Skin: Negative for color change and wound. Neurological: Positive for seizures. Negative for dizziness, numbness and headaches. All other systems reviewed and are negative. Physical Exam Vitals signs and nursing note reviewed. Constitutional: General: She is not in acute distress. Appearance: She is well-developed. She is not diaphoretic. HENT: Head: Normocephalic and atraumatic. Right Ear: Tympanic membrane normal. Left Ear: Tympanic membrane normal. Eyes: Pupils: Pupils are equal, round, and reactive to light. Neck: Musculoskeletal: Normal range of motion and neck supple. Thyroid: No thyromegaly. Cardiovascular: Rate and Rhythm: [...] Normal range of motion. General: No tenderness. Skin: General: Skin is warm and dry. Coloration: Skin is not pale. Findings: No erythema or rash. Neurological: Mental Status: She is alert and oriented to person, place, and time. GCS: GCS eye subscore is 4. GCS verbal subscore is 5. GCS motor subscore is 6. Cranial Nerves: No cranial nerve deficit. Sensory: Sensation is intact. No sensory deficit. Motor: Motor function is intact. No weakness. Psychiatric: Behavior: Behavior normal. Urinalysis Reflex if Indicated by Abnormal Results Final Result Urine Drug Screen Final Result Complete Blood Count (CBC) WITH Diff Final Result CMP (Comprehensive Metabolic Panel) Final Result ETOH Final Result Extra Tubes Final Result Procedures Imaging Results None MDM Coding Clinical Impression 1. Seizure (HCC) Reviewed labs with patient. Will start patient on depakote as planned. She is encouraged to keep neuro appt 09/22 and have scheduled MRI 09/23. Sz precautions discussed. No bathing, swimming or driving. She has a work note excusing until next month. Return to ED for recurrent sxs. The patient remained stable throughout their [...] the need for follow up. Cosigned by Mohit Saldaña MD at 10/03/2019 6:24 PM CDT * Kike Levy - 09/21/2019 12:56 PM CDT Seizure pads placed per RN. * Gayla Acosta RN - 09/21/2019 12:35 PM CDT Pt ambulatory to triage with complaints of seizure lasting one minute one hour prior to arrival. Ptreports this was not witnessed by anybody. Pt reports she remained alert through the seizure. Pt states she was just recently diagnosed with seizures. Pt had issues with Keppra so was instructed to stop taking medication. Pt is scheduled to see neurologist on 09/22 and MRI scheduled for 09/23. Pt is concerned she may be having stroke. A&O x4 with clear speech. No neuro deficits. VSS. documented in this encounter Plan of Treatment Not on file documented as of this encounter Procedures Procedure Name Priority Date/Time Associated Diagnosis Comments URINALYSIS REFLEX IF INDICATED BY ABNORMAL RESULTS STAT 09/21/2019 1:31 PM CDT URINE DRUG SCREEN STAT 09/21/2019 1:3 1 PM CDT POCT URINE HCG () STAT 09/21/2019 1:30 PM CDT EXTRA TUBES STAT 09/21/2019 1:26 PM CDT GOLD TOP TUBE STAT 09/21/2019 1:26 PM CDT BLUE TOP TUBE STAT 09/21/2019 1:26 PM CDT CBC WITH AUTO DIFFERENTIAL STAT 09/21/2019 1:26 PM CDT ETHYL ALCOHOL (ETHANOL) STAT 09/21/2019 1:26 PM CDT CMP (COMPREHENSIVE METABOLIC PANEL) STAT 09/21/2019 1:26 PM CDT COMPLETE BLOOD COUNT (CBC) WITH DIFF STAT 09/21/2019 1:26 PM CDT documented in this encounter Results * Urine Drug Screen (09/21/2019 1:31 PM CDT) UR AMPHETAMINE NON DETECTED NON DETECTED 09/21/2019 2:14 PM CDT [facility] UR BENZODIAZEPINES NON DETECTED NON DETECTED 09/21/2019 2:14 PM CDT [facility] UR COCAINE METABOLITE NON DETECTED NON DETECTED 09/21/2019 2:14 PM CDT [facility] UR OPIATES NON DETECTED NON DETECTED 09/21/2019 2:14 PM CDT [facility] UR PHENCYCLIDINE NON DETECTED NON DETECTED 09/21/2019 2:14 PM CDT [facility] UR CANNABINOID NON DETECTED NON DETECTED 09/21/2019 2:14 PM CDT [facility] UR TRICYCLIC ANTIDEPRESS SCREEN NON DETECTED NON DETECTED 09/21/2019 2:14 PM CDT [facility] UR BARBITURATE NON DETECTED NON DETECTED 09/21/2019 2:14 PM CDT [facility] Urine Non-Phlebotomy Collection / Unknown 09/21/2019 1:31 PM CDT 09/21/2019 1:42 PM CDT us Faizan Loco PAC URINE ORDERABLES Fin al Result [facility] [address] [place] [address] * (ABNORMAL) Urinalysis Reflex if Indicated by Abnormal Results (09/21/2019 1:31 PM CDT) SPECIFIC GRAVITY 1.010 1.003 - 1.030 09/21/2019 2:00 PM CDT [facility] URINE PH 8.0 5.0 - 9.0 09/21/2019 2:00 PM CDT [facility] WBC ESTERASE Negative Negative 09/21/2019 2:00 PM CDT [facility] NITRITE Negative Negative 09/21/2019 2:00 PM CDT [facility] PROTEIN, RANDOM URINE 30 mg/dL(A) Negative 09/21/2019 2:00 PM CDT [facility] URINE GLUCOSE, QUAL Negative Negative 09/21/2019 2:00 PM CDT [facility] URINE KETONES Negative Negative 09/21/2019 2:00 PM CDT [facility] UROBILINOGEN Normal Normal mg/dL 09/21/2019 2:00 PM CDT [facility] URINE BILIRUBIN Negative Negative 0 2:00 PM CDT [facility] URINE BLOOD Negative Negative pierre/ul 09/21/2019 2:00 PM CDT [facility] URINALYSIS COLOR Yellow 09/21/19 20 2:00 PM CDT [facility] URINALYSIS CLARITY Clear 09/21/2019 2:00 PM CDT [facility] WBC (Urine) 0-5 Negative, 0-5 /hpf 09/21/2019 2:00 PM CDT [facility] URINE RBC'S 0-2 Negative, 0-2 /hpf 09/21/2019 2:00 PM CDT [facility] EPITHELIAL CELLS Occasional /lpf 09/21/19 20 2:00 PM CDT [facility] BACTERIA, URINE Moderate(A) Negative /hpf 09/21/2019 2:00 PM CDT [facility] Urine URINE SPECIMEN / Unknown Non-Phlebotomy Collection / Unknown 09/21/2019 1:31 PM CDT 09/21/2019 1:42 PM CDT Faizan Loco PAC URINE ORDERABLES Fin al Result Performing Organization Address [facility] [address] [facility] Co de Phone Number [facility] [address] [place] [address] * POCT Urine HCG () (09/21/2019 1:30 PM CDT) Pathologist [facility] POC URINE Negative POC URINE CONTROL Arc Welding Machine Operator Pass Urine 09/21/2019 1:30 PM CDT Faizan Loco PAC POINT OF CARE TESTIN G (MANUAL) Final Result * Gold Top Tube (09/21/2019 1:26 PM CDT) Blood Venipuncture / Unknown 09/21/2019 1:26 PM CDT 09/21/2019 1:44 PM CDT us Faizan Loco PAC CHEMISTRY ORDERABLES Final Result Performing Organization Address [facility] [address]/[facility] Co de Phone Number [facility] [address] [place] [address] * Blue Top Tube (09/21/2019 1:26 PM CDT) Blood Venipuncture / Unknown 09/21/2019 1:26 PM CDT 09/21/2019 1:44 PM CDT Faizan Loco PAC HEMATOLOGY ORDERABLE S Final Result Performing Organization Address City/[facility] [address]/[facility] Co de Phone Number [facility] [address] [place] [address] * (ABNORMAL) CBC with Auto Differential (09/21/2019 1:26 PM CDT) Pathologist [facility] WBC 8.10 4.00 - 12.00 10(3)/mcL 09/21/2019 1:45 PM CDT [facility] RBC 4.21 3.80 - 5.30 10(6)/mcL 09/21/2019 1:45 PM CDT [facility] HEMOGLOBIN (HGB) 11.8(L) 12.0 - 15.8 g/dL 09/21/2019 1:45 PM CDT [facility] HEMATOCRIT (HCT) 38.2 36.0 - 47.0 % 09/21/2019 1:45 PM CDT [facility] MCV 90.7 82.0 - 96.0 fL 09/21/2019 1:45 PM CDT [facility] MCH 28.0 26.0 - 34.0 pg 09/21/2019 1:45 PM CDT [facility] MCHC 30.9(L) 31.0 - 36.0 g/dL 09/21/2019 1:45 PM CDT [facility] PLATELET COUNT 358 140 - 440 10(3)/mcL 09/21/2019 1:45 PM CDT [facility] RDW 14.1 11.8 - 15.5 % 09/21/2019 1:45 PM CDT [facility] MPV 9.4(L) 9.7 - 12.4 fL 09/21/2019 1:45 PM CDT [facility] NEUTROPHILS 86.3(H) 47.0 - 73.0 % 09/21/2019 1:45 PM CDT [facility] LYMPHOCYTES 9.0(L) 18.0 - 42.0 % 09/21/2019 1:45 PM CDT [facility] MONOCYTES 4.1 4.0 - 12.0 % 09/21/2019 1:45 PM CDT [facility] EOSINOPHILS 0.2 0.0 - 5.0 % 09/21/2019 1:45 PM CDT [facility] BASOPHILS 0.4 0.0 - 1.0 % 09/21/2019 1:45 PM CDT [facility] ABSOLUTE NEUTROPHILS 6.99 1.60 - 7.70 10(3)/mcL 09/21/2019 1:45 PM CDT [facility] ABSOLUTE LYMPHOCYTES 0.73(L) 1.30 - 3.20 10(3)/mcL 09/21/2019 1:45 PM CDT [facility] ABSOLUTE MONOCYTES 0.33 0.20 - 1.00 10(3)/mcL 09/21/2019 1:45 PM CDT [facility] ABSOLUTE EOSINOPHIL 0.02 0.00 - 0.40 10(3)/mcL 09/21/2019 1:45 PM CDT [facility] ABSOLUTE BASOPHILS 0.03 0.00 - 0.10 10(3)/[facility] 09/21/2019 1:45 PM CDT [facility] NRBC PER 100 WBC 0 09/21/19 20 1:45 PM CDT [facility] Blood Venipuncture / Unknown 09/21/2019 1:26 PM CDT 09/21/2019 1:42 PM CDT Faizan Loco PAC HEMATOLOGY ORDERABLE S Final Result [facility] [address] [place] [address] * ETOH (09/21/2019 1:26 PM CDT) Pathologist [facility] ETHANOL <=10 <=10 mg/dL 09/21/2019 2:05 PM CDT [facility] Blood Venipuncture / Unknown 09/21/2019 1:26 PM CDT 09/21/2019 1:42 PM CDT Faizan Loco PAC CHEMISTRY ORDERABLES Final Result [facility] [address] [place] [address] * (ABNORMAL) CMP (Comprehensive Metabolic Panel) (09/21/2019 1:26 PM CDT) SODIUM 141 136 - 144 mmol/L 09/21/2019 2:05 PM CDT [facility] POTASSIUM 4.0 3.5 - 5.1 mmol/L 09/21/2019 2:05 PM [facility] CHLORIDE 104 100 - 110 mmol/L 09/21/2019 2:05 PM [facility] CO2, VENOUS 27 22 - 32 mmol/L 09/21/2019 2:05 PM [facility] ANION GAP 14.0 8.0 - 20.0 mmol/L 09/21/2019 2:05 PM [facility] GLUCOSE 99 70 - 99 mg/dL 09/21/2019 2:05 PM [facility] BUN 13 6 - 20 mg/dL 09/21/2019 2:05 PM [facility] CREATININE, BLOOD 0.55(L) 0.60 - 1.10 mg/dL 09/21/2019 2:05 PM [facility] BUN/CREATININE RATIO 24(H) 12 - 20 ratio 09/21/2019 2:05 PM [facility] TOTAL PROTEIN 7.6 6.0 - 8.3 g/dL 09/21/2019 2:05 PM [facility] ALBUMIN 4.5 3.5 - 5.2 g/dL 09/21/2019 2:05 PM [facility] Comment: The colormetric methods used for the determination of Albumin may lead to falsely elevated test results in patients suffering from renal failure or insufficiency due to interference with other proteins. A/G RATIO 1.5 1.0 - 2.0 09/21/2019 2:05 PM [facility] CALCIUM 9.8 8.9 - 10.3 mg/dL 09/21/2019 2:05 PM [facility] T BILI <=0.2 <=1.2 mg/dL 09/21/2019 2:05 PM [facility] SGOT (AST) 13 <=32 U/L 09/21/2019 2:05 PM [facility] SGPT (ALT) 13 <=33 U/L 09/21/2019 2:05 PM CDT [facility] ALKALINE PHOSPHATASE 56 35 - 105 U/L 09/21/2019 2:05 PM CDT [facility] GFR, EST. NONAFRICAN >60 >=60 09/21/2019 2:05 PM CDT [facility] GFR, EST. >60 >=60 020 2:05 PM CDT [facility] Comment: Creatinine Clearance is the preferred criteria for selecting drug dose adjustments in renally impaired patients. ??The GFR is provided as additional pertinent clinical information. GFR is reported in mL/min/1.73 sq m. Blood Venipuncture / Unknown 09/21/2019 1:26 PM CDT 09/21/2019 1:42 PM CDT us Faizan Loco PAC CHEMISTRY ORDERABLES Final Result [facility] [address] [place] [address] documented in this encounter Visit Diagnoses Diagnosis Seizure (HCC)- Primary Other convulsions documented in this encounter Additional Health Concerns Assessment Noted Time PHQ-9 Depression Total Score: 0 03/25/19 20 10:00 AM CERTIFIED JUVENILE PROBATION OFFICER documented as of this encounter Care Teams Student Assistant Relationship Specialty Start Date End Date Gayla Barker, LICENSED PSYCHOLOGIST, LOAN OFFICER [address] [place] [address] PCP - General Advanced Practice Nurse 03/25/19 Ct[facility] [place] [employer] 09/03/19 documented as of this encounter
--- OUTSIDE RECORDS SUMMARY | 2024-02-24 19:46 | XMS_ITS | Encounter Summary ---
Author Organization [facility] Address [address] [facility] [place] [address] Phone Care Team Providers Care Stone Layout Marker Name Role Phone Gayla Barker APRN, CARDIOLOGY PHYSICIAN Primary Care Provider Ct, [facility] Unavailable Marianela vailable Reason for Visit * Reason Onset Date Comments Other 10/21/2019 Encounter Details Date Type Department Care Team ([facility] st Contact Info) Description 10/21/2019 Telephone [facility] [address] [place] [address] Gayla Barker, ANNIE, CARDIOLOGY PHYSICIAN [address] [place] [address] Other Social History Tobacco Use Types Packs/Day Years [...] on file 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 No / Unsure 10/21/2019 1:23 PM CDT documented as of this encounter Miscellaneous Notes * Telephone Encounter - Amita Oreilly, RN - 10/21/2019 2:45 PM CDT Patient is covid negative as of 10/18/2019. She is continuing to have GERD like symptoms with diarrhea. Not constant diarrhea, just intermittent. Requests to be seen today. Denies fevers or coughing. I scheduled her in office at 4:15. documented in this encounter Plan of Treatment Not on file documented as of this encounter Visit Diagnoses Not on filedocumented in this encounter Additional Health Concerns Infection Onset Date Last Indicated Resolved Time COVID - 19 10/17/2019 10/18/2019 10/22/2019 3:33 PM CDT Assessment Noted Time PHQ-9 Depression Total Score: 0 03/25/19 10:00 AM CLAY WASHER documented as of this encounter Care Teams Stone Layout Marker Relationship Specialty Start Date End Date Gayla Barker, BLOW DOWN OPERATOR, CARDIOLOGY PHYSICIAN [address] [place] [address] PCP - General Advanced Practice Nurse 03/25/19 Ct, [facility] [place] [employer] [place] 09/03/19 documented as of this encounter
--- OUTSIDE RECORDS SUMMARY | 2024-02-24 19:46 | XMS_ITS | Encounter Summary ---
Author Organization [facility] Address [address] [place] 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 Yes 12/26/2019 1:34 PM CDT documented as of this encounter Miscellaneous Notes * Telephone Encounter - Leti Ashby RN - 10/06/2019 11:01 AM CDT Opened in error. Please disregard. documented in this encounter Plan of Treatment Not on file documented as of this encounter Visit Diagnoses Not on filedocumented in this encounter Additional Health Concerns Infection Onset Date Last Indicated Resolved Time COVID - 19 10/17/2019 10/18/2019 10/22/2019 3:33 PM CDT COVID - 19 11/13/2019 11/13/2019 11/16/2019 12:0 8 AM CDT COVID - 19 11/25/2019 12/09/2019 12/11/2019 7:53 AM CDT COVID - 19 12/25/2019 12/26/2019 12/28/2019 6:29 AM INTERNATIONAL PROJECT MANAGER Assessment Noted Time PHQ-9 Depression Total Score: 0 03/25/19 20 10:00 AM INTERNATIONAL PROJECT MANAGER documented as of this encounter Care Teams Publicist Relationship Specialty Start Date End Date Gayla Barker, GEAR SHAPER SET UP OPERATOR, CONCRETE PUMP OPERATOR HELPER [address] [place] [address] PCP - General Advanced Practice Nurse 03/25/19 Ct[facility] [place] [facility] 09/03/19 documented as of this encounter
--- OUTSIDE RECORDS SUMMARY | 2024-02-24 19:46 | XMS_ITS | Encounter Summary ---
Author Organization [facility] Address [address] [place] [address] [place] [address] Phone Care Team Providers Care Kickboxing Instructor Name Role Phone Gayla Barker APRN, HARSHA Primary Care Provider Ct, [facility] Unavailable Marianela vailable Reason for Visit * Reason Onset Date Comments COVID-19 09/28/2019 Encounter Details Date Type Department Care Team (Late st Contact Info) Description 09/28/2019 Nurse Triage [facility] Digital Contact Center [address] [place] [id number] Gayla Barker APRN, VENETIAN BLIND CLEANER [address] [place] [address] COVID-19 Social History Tobacco Use Types Packs/Day [...] on file Legal Sex Female 10:27 AM 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 Yes 09/28/2019 5:27 PM CDT documented as of this encounter Miscellaneous Notes * Telephone Encounter - Nallely Sheppard Jessica, RN - 09/28/2019 5:31 PM CDT Images from the original note were not included. Travel Screening Question Response Do you have any of the following symptoms? Chills;Fever;Joint pain;Muscle pain;Sore throat;Severe headache;Cough;Shortness of breath;Vomiting;Abdominal pain;Diarrhea;Weakness (Nasal congestion, runny, chest congestion) In the last month, have you been in contact with someone who was confirmed or suspected to have Coronavirus / COVID-19? Yes (Co-worker) Have you traveled internationally in the last month? No Travel History Travel since 08/28/19 No documented travel since 08/28/19 COVID-19 Testing Priority for Carito Rausch: 2 Nurse to triage SITUATION: Patient calling with Chills, Fever, Joint pain, Muscle pain, Sore throat, Severe headache, Cough, Slight Shortness of breath, Vomiting, Abdominal pain, Diarrhea, Weakness, Nasal congestion, Runny nose, chest congestion BACKGROUND: Patient reports she had a co-worker that tested positive for COVID that she was in contact with sometime last week . Patient reports she is unsure when her co-worker tested positive for COVID and could not give RN an approximate time. Patient reports her symptoms started two days ago. Patient reports she was evaluated in the Emergency Department today due to being in an accident, butdid not tell the Emergency Department she was having COVID symptoms due to not wanting to be in theEmergency Department all day. Patient reports that they did check her electrolytes and did other blood work in which everything came back normal . Patient reports she has a history of Asthma and Lupus. ASSESSMENT: Symptom Description / Location: Patient reports fever has been as high as 102 F. Patient reports having chills with her fever. Patient reports having a fever the last few days. Patient reports her temperature in the ER today was 97.4 F via forehead scan. Patient reports she does not feel as if she has a fever today. Patient reports generalized muscle and joint pain. Patient reports having painfulswallowing and feels like something is stuck in her throat at times. Patient reports that it feels as if her throat is swollen. Patient reports she has been able to drink plenty of fluids without difficulty. Patient denies eating or drinking anything different or using any new detergents or soaps. P flaquita reports blurry vision with her headache. Patient reports headache is on the sides of her head. Patient reports that this is the longest headache she has had, but is unsure if it is the worse headache she has ever had. Patient reports a dry cough, but feels as if she needs to cough up mucous.Patient reports a frequent cough. Patient has occasional severe coughing spells. Patient reports shortness of breath only with coughing. Patient reports chest congestion and chest soreness with coughing only. Patient reports induced vomiting at least 10 times today. Patient reports she has been drinking plenty of fluids. Patient denies any blood in her emesis. Patient reports her vomiting stated today. Patient reports generalized abdominal pain. Patient reports intermittent diarrhea, but denieshaving episodes today. Patient reports that she feels constipated today in which it is causing her some lower back pain. Patient denies seeing red or black in her stool. Patient reports feeling generalized weakness and fatigue. Patient reports nasal congestion and runny nose. Patient's voice is extremely raspy during phone conversation. Patient needed to pause call briefly to have an induced vomiting episode. No coughing noted during RN phone assessment. Pain (0-10): Muscle Aches 7/10 Temp: 97.4 F forehead in the ER today. Treatment / Response: Claritin Excedrin Iburprofen Robitussin Albuterol inhaler None of these treatments helped patient. RECOMMENDATION: See care advice and disposition for Guidelines Recommended that patient be seen in the Emergency Department for her frequent vomiting in case of dehydration. Patient does not want to be seen again in the Emergency Department since she was seen today and her electrolytes and blood work were all normal . Patient reports she will go to a [facility] in the morning to be evaluated. Patient scheduled with a [facility] Physician's telephone visit for today, 09/28/2019. First positive answer recorded, all responses to [...] ask them to send a request via Yoozon to their provider (you may need to activate a Yoozon account with them). You may also route an excuse note request to the provider. Inform the patient that the provider will determine if a note will be sent and let them know that a telephone visit may be required. Caller verbalizes understanding of the above information. NALLELY SHEPPARD RN Reason for Disposition ? ? HIGH RISK patient (e.g., age > 64 years, diabetes, heart or lung disease, weak immune system) ??? [1] Symptoms of COVID-19 (e.g., cough, fever, SOB, or others) AND [2] within 14 days of EXPOSURE (close contact) with diagnosed or suspected COVID-19 patient Answer Assessment - Initial Assessment Questions 1. CLOSE CONTACT: Who is the person with the confirmed or suspected COVID-19 infection that you were exposed to? A co-worker 2. PLACE of CONTACT: Where were you when you were exposed to COVID-19? (e.g., home, school, medical waiting room; which city?) At work 3. TYPE of CONTACT: How much contact was there? (e.g., sitting next to, live in same house, work in same office, same building) Sitting next to co-worker in the same building 4. DURATION of CONTACT: How long were you in contact with the COVID-19 patient? (e.g., a few seconds, passed by person, a few minutes, live with the patient) Three 10 hour days last week 5. DATE of CONTACT: When did you have contact with a COVID-19 patient? (e.g., how many days ago) 1 week ago 6. TRAVEL: Have you traveled out of the country recently? If so, When and where? * Also ask about [id number] travel, since the CDC has identified some high- risk cities for community spread in the . * Note: Travel becomes less relevant if there is widespread community transmission where the patient lives. None 7. COMMUNITY SPREAD: Are there lots of cases of COVID-19 (community spread) where you live? (See public health department website, if unsure) Unkown 8. SYMPTOMS: Do you have any symptoms? (e.g., fever, cough, breathing difficulty) Chills, Fever, Joint pain, Muscle pain, Sore throat, Severe headache, Cough, Slight Shortness of breath, Vomiting, Abdominal pain, Diarrhea, Weakness, Nasal congestion, Runny nose, chest congestion 9. OR : Is there any chance you are ? When was your last menstrual period? Did you deliver in the last 2 weeks? No chance of per patient report, Unsure of her last menstrual cycle date 10. HIGH RISK: Do you have any heart or lung problems? Do you have a weak immune system? (e.g., CHF, COPD, asthma, HIV positive, chemotherapy, renal failure, diabetes mellitus, sickle cell anemia) Lupus and Asthma Protocols used: CORONAVIRUS (COVID-19) DIAGNOSED OR [id number], CORONAVIRUS (COVID-19) [id number] * Telephone Encounter - Nallely Sheppard RN - 09/28/2019 5:27 PM CDT Images from the original note were not included. Travel Screening Question Response Do you have any of the following symptoms? Chills;Fever;Joint pain;Muscle pain;Sore throat;Severe headache;Cough;Shortness of breath;Vomiting;Abdominal pain;Diarrhea;Weakness (Nasal congestion, runny, chest congestion) In the last month, have you been in contact with someone who was confirmed or suspected to have Coronavirus / COVID-19? Yes (Co-worker) Have you traveled internationally in the last month? No Travel History Travel since 08/28/19 No documented travel since 08/28/19 Patients whose symptoms require immediate emergency assistance [...] further on next steps. Did patient refuse administrative dietitian? no ??? If patient refuses to speak to a nurse: Please continue to monitor your symptoms and if they get worse, do not hesitate to call us back. We are here 18/09. We recommend you refer to the CDC website regarding guidelines for self- isolation and thank you for calling. NALLELY SHEPPARD RN documented in this encounter Plan of Treatment Not on file documented as of this encounter Visit Diagnoses Not on filedocumented in this encounter Additional Health Concerns Assessment Noted Time PHQ-9 Depression Total Score: 0 03/25/19 20 10:00 AM MACHINIST SET UP documented as of this encounter Care Teams Kickboxing Instructor Relationship Specialty Start Date End Date Gayla Barker, AUTOMOTIVE MACHINIST APPRENTICE, VENETIAN BLIND CLEANER [address] [place] [address] PCP - General Advanced Practice Nurse 03/25/19 Ct[facility] [place] [facility] 09/03/19 documented as of this encounter
--- OUTSIDE RECORDS SUMMARY | 2024-02-24 19:46 | XMS_ITS | Encounter Summary ---
Author Organization [facility] Address [address] [facility] [place] [address] Phone Care Team Providers Care Gluten Settling Tender Name Role Phone Gayla Barker APRN, MANAGER OF RECRUITING Primary Care Provider Ct, [facility] Unavailable Marianela vailable Reason for Visit * Reason Comments COVID-19 Encounter Details Date Type Department Care Team ([facility] Contact Info) Description 09/28/2019 6:45 PM CDT Telemedicine 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 Yes 09/28/2019 5:27 PM CDT documented as of this encounter Progress Notes * Katie Black, PENNY, HARSHA - 09/28/2019 6:45 PM CDT Images from the original note were not included. 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 Patient reports a 2-3 day hx of fever, chills, nasal congestion, rhinorrhea, headache, vomiting, & diarrhea. Tmax 102.1. Cough is non-productive; no SOB; no chest tightness; no wheezing. Patient was in the Emergency Room today at [facility]; states that she did not mention these symptoms that she is calling with tonight to the ED provider. Patient reports exposure to a friend last week who tested + for COVID 19. Patient states that she has been taking OTC claritin, OTC delsym, OTC robitussin DM, & using her albuterol inhaler and she is not getting any relief of her symptoms. Patient states that she has tessalon perles at home, but has not used them for her cough. Allergies Allergen Reactions ??? Effexor [Venlafaxine] Itching [...] to Visit Medication Sig Dispense Refill ??? albuterol 108 [...] 90 Tab 0 ??? ergocalciferol (VITAMIN D) 66563 UNIT Capsule TAKE 1 CAPSULE BY MOUTH [...] Tab by mouth daily. 90 Tab 3 No current facility-administered medications on file prior [...] focal or generalized (HCC) Review of Systems Constitutional: Positive for activity change, appetite change, fatigue and fever. HENT: Positive for sore throat and voice change. Eyes: Negative. Respiratory: Positive for cough and shortness of breath (mild). Cardiovascular: Negative. Gastrointestinal: Positive for diarrhea and vomiting (post tussive). Musculoskeletal: Positive for arthralgias and myalgias. Neurological: Positive for headaches. Hematological: Negative. Psychiatric/Behavioral: Negative. Chief complaint and all history documented by ancillary staff were reviewed and verified with additions or corrections as appropriate. OBJECTIVE Speaking in complete sentences No distress or coughing noted during dialogue, however hoarseness noted in patient's voice. Physical Exam ASSESSMENT/PLAN COVID SCREEN POSITIVE-Priority 3 Diagnoses and all orders for this visit: Cough - SARS-COV-2 BY PCR; Future Sore throat - SARS-COV-2 BY PCR; Future Voice hoarseness - SARS-COV-2 BY PCR; Future Exposure to COVID-19 virus - SARS-COV-2 BY PCR; Future Education (as applicable): - Discussed further in-person evaluation including option of Urgent Care/ED visit at this time. Pt declined further evaluation at this time. Pt would like to use conservative management and remain home. Discussed risks associated with this decision and pt voices understanding. - Patient counseled to remain at home unless symptoms get worse. If symptoms worsen, the patient was counseled to call back to their PCP office (or this triage line if no PCP) or go to ED immediatelyfor severe symptoms. - If symptomatic or symptoms develop within those 14 days of quarantine, stay home until these three things have happened: - No fever for 24 hours (without the use of medicine) AND - Other symptoms have improved (ie cough, SOB) AND - at least 10 days have passed since your symptoms first appeared - Patient to Increase PO fluid intake - OTC tylenol as directed as needed - Use the tessalon perles that you have been prescribed as directed as needed for cough - Albuterol Inhaler 2 puffs every 4 hours as needed - If you do not live alone: [...] by the above documentation. Patient agreed withdisposition. -Schedule testing to be done at [facility] [place], [place] Patient was assessed via telephone for a duration of 0-15 minutes. Patient verbally consented for this service to be performed. -Katie Black APN, MANAGER OF RECRUITING documented in this encounter Plan of Treatment Not on file documented as of this encounter Visit Diagnoses Diagnosis Cough- Primary Sore throat Acute pharyngitis Voice hoarseness Dysphonia Exposure to COVID-19 virus documented in this encounter Additional Health Concerns Infection Onset Date Last Indicated Resolved Time COVID - 19 09/28/2019 09/30/2019 09/29/2019 3:10 PM CDT Assessment Noted Time PHQ-9 Depression Total Score: 0 03/25/19 10:00 AM SCHEDULE HANGER documented as of this encounter Care Teams Gluten Settling Tender Relationship Specialty Start Date End Date Gayla Barker APRN, MANAGER OF RECRUITING [address] [place] [address] PCP - General Advanced Practice Nurse 03/25/19 Ct[facility] [place] [facility] 09/03/19 documented as of this encounter
--- OUTSIDE RECORDS SUMMARY | 2024-02-24 19:46 | XMS_ITS | Encounter Summary ---
Author Organization [facility] Address [address] [place] [address] Phone Care Team Providers Care Director Social Welfare Name Role Phone Gayla Barker APRN, SECTION 8 PROPERTY MANAGER Primary Care Provider Ct, Acute Covid At Home Care Unavailable Marianela vailable Reason for Visit * Reason Comments COVID-19 Encounter Details Date Type Department Care Team ([facility] Contact Info) Description 09/03/2019 8:15 PM CDT Telemedicine [facility] Digital Contact Center [address] [place] [address] Sofia Arguello APRN, SECTION 8 PROPERTY MANAGER [address] [place] [address] Cough (Primary Dx); Shortness of breath; Fever, unspecified fever cause Discharge Disposition: Discharged to home or Selfcare [...] on file 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 Yes 09/03/2019 7:37 PM CDT documented as of this encounter Progress Notes * Sofia Arguello, PENNY, HARSHA - 09/03/2019 8:15 PM CDT Images from the original note were not included. [facility] SUBJECTIVE Chief Complaint Patient presents with ??? COVID-19 Patient states she has had symptoms over the last month. She states she had headache, nausea, vomiting, and diarrhea initially. Those symptoms resolved. She was tested for COVID last week at [facility] after she developed cough, shortness of breath and headache. She states her cough and shortness of breath have worsened and she woke up today with a fever, back pain, and chest pain. She states her symptoms are worse in the morning and night. Her cough has progressed and is frequent when she lays down. She is short of breath at rest and with activity. She has used her inhaler twice today and statesit hasn't really helped. She denies wheezing. She states when she takes a deep breath she feels an ache in her chest that is annoying. Her temperature today resulted 100 and she developed chills and body aches that started last night. She also developed diarrhea and has had 5 episodes today. She iseating and drinking normally. She has a history of lupus and asthma. 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 ?? Allergies Allergen Reactions ??? Effexor [Venlafaxine] Itching [...] 0 ??? ALPRAZolam (XANAX) 0.25 MG Tablet TAKE 1 TABLET BY MOUTH 3 TIMES DAILY NEEDED FOR ANXIETY 30Tab 0 ??? amoxicillin (AMOXIL) 500 MG Capsule Take 1 Cap by mouth 3 times daily for 7 days. 21 Cap 0 ??? ergocalciferol (VITAMIN D) 67468 UNIT Capsule TAKE 1 CAPSULE BY MOUTH ONE TIME PER WEEK ??? Escitalopram Oxalate (LEXAPRO) 5 MG Tablet Take 5 mg by mouth daily. ??? hydroxychloroquine (PLAQUENIL) 200 MG Tablet Take 1 Tab by mouth daily. 90 Tab 3 ??? ketorolac (TORADOL) 10 MG Tablet Take 10 mg by mouth every 4 hours as needed. ??? OMEPRAZOLE PO Take 20 mg by mouth. ??? ondansetron (ZOFRAN) 4 MG Tablet Take 1-2 Tabs by mouth every 8 hours as needed for Nausea - 1st line. 10 Tab 0 ??? predniSONE (DELTASONE) 10 MG Tablet Take 1 Tab by mouth daily. 90 Tab 3 ??? predniSONE (DELTASONE) 5 MG Tablet Take 1 Tab by mouth daily. (Patient taking differently: Take2 mg by mouth daily.) 90 Tab 3 No current facility-administered medications [...] ??? Liver lesion ??? Nausea and vomiting Review of Systems Chief complaint and all history documented by ancillary staff were reviewed and verified with additions or corrections as appropriate. OBJECTIVE Speaking in complete sentences. No distress or coughing noted during dialogue. ASSESSMENT/PLAN Education (as applicable): - Discussed further in-person evaluation including option of ED visit at this time. Pt declined further [...] things have happened: - No fever for 3 days (without the use of medicine) AND - [...] sick leave, or to return to work. [facility] is not providing excuse for work notes or return to work notes at this time per CDC recommendations. Caller verbalizes understanding of the above information. Recommended disposition of [facility] supported by the above documentation. Patient disagreedwith disposition. Patient does not feel the need to be evaluated at this time. She was educated on tessalon use and side effects, and to use tylenol as needed. She was encouraged to be evaluated if her shortness of breath and chest aching continue or worsen. She is a priority 2 for COVID testing. She was previously tested for COVID, however she has developed new symptoms and has a significant medical history. She will need scheduled at the [place], [place] location tomorrow. Referred to the acute covid at home program. Diagnoses and all orders for this visit: Cough - SARS-COV-2 BY PCR; Future - COVID ADVANCED MONITORING REFERRAL; Future Shortness of breath - SARS-COV-2 BY PCR; Future - COVID ADVANCED MONITORING REFERRAL; Future Fever, unspecified fever cause - SARS-COV-2 BY PCR; Future - COVID ADVANCED MONITORING REFERRAL; Future Other orders - benzonatate (TESSALON) 100 MG Capsule; Take 1 Cap by mouth 3 times daily as needed for Cough for up to 10 days. Patient was assessed via telephone for a duration of 16-30 minutes. Patient verbally consented forthis service to be performed. Sofia Arguello APN, CNP documented in this encounter Plan of Treatment Not on file documented as of this encounter Results * SARS-COV-2 BY PCR (09/04/2019 2:33 PM CDT) SARSCOV2 Sent to Non Interfaced Lab. See COVID-19 by track man-PCR, Non Interfaced Lab for results. (Referenc e Range for this test is Not Detected) 09/07/2019 1:45 PM CDT NON-INTERFACED REFERENCE LABORATORIES Swab NASOPHARYNGEAL STRUCTURE / Unknown Non-Phlebotomy Collection / Unknown 09/04/2019 2:33 PM CDT 09/04/2019 2:33 PM CDT Sofia Arguello APRN, CNP MICROBIOLOGY - GENERAL ORDERABLES Final Result NON-INTERFACED REFERENCE LABORATORIES documented in this encounter Visit Diagnoses Diagnosis Cough- Primary Shortness of breath Fever, unspecified fever cause documented in this encounter Additional Health Concerns Infection Onset Date Last Indicated Resolved Time COVID - 19 09/03/2019 09/04/2019 09/09/2019 11:2 5 AM CDT Assessment Noted Time PHQ-9 Depression Total Score: 0 03/25/19 20 10:00 AM HR RECRUITER documented as of this encounter Care Teams Director Social Welfare Relationship Specialty Start Date End Date Gayla Barker APRN, HARSHA [address] [place] [address] PCP - General Advanced Practice Nurse 03/25/19 Ct, Acute [facility] Home [facility] [place] [facility] 09/03/19 documented as of this encounter
--- OUTSIDE RECORDS SUMMARY | 2024-02-24 19:46 | XMS_ITS | Encounter Summary ---
Author Organization [facility] Address [address] [facility] [place] [address] Phone Care Team Providers Care Paper Roll Machine Operator Name Role Phone Gayla Barker APRN, HARSHA Primary Care Provider Ct, Acute Covid At Home Care Unavailable Marianela vailable Reason for Visit * Reason Onset Date Comments COVID-19 11/13/2019 Encounter Details Date Type Department Care Team (Late st Contact Info) Description 11/13/2019 Nurse Triage [facility] Digital Contact Center [address] [place] [id number] Gayla Barker APRN, PRE KINDERGARTEN TEACHER [address] [place] [address] COVID-19 Social History Tobacco Use Types Packs/Day [...] on file Legal Sex 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 Yes 11/13/2019 7:53 AM CDT documented as of this encounter Miscellaneous Notes * Telephone Encounter - Jessica Pereira RN - 11/13/2019 8:00 AM CDT Images from the original note were not included. Travel Screening Question Response In the last month, have you been in contact with someone who was confirmed or suspected to have Coronavirus / COVID-19? Yes Have you had a COVID-19 viral test in the last 14 days? No Do you have any of the following new or worsening symptoms? Muscle pain;Severe headache;Chills;Vomiting;Diarrhea;Fatigue;Shortness of breath (raspy voice) Have you traveled internationally in the last month? No Travel History Travel since 10/13/19 No documented travel since 10/13/19 Patients whose symptoms require immediate emergency assistance [...] further on next steps. Did patient refuse sewer pipe press operator? no Travel Screening Question Response In the last month, have you been in contact with someone who was confirmed or suspected to have Coronavirus / COVID-19? Yes Have you had a COVID-19 viral test in the last 14 days? No Do you have any of the following new or worsening symptoms? Muscle pain;Severe headache;Chills;Vomiting;Diarrhea;Fatigue;Shortness of breath (raspy voice) Have you traveled internationally in the last month? No Travel History Travel since 10/13/19 No documented travel since 10/13/19 COVID-19 Testing Priority for Carito Rausch: 2 Nurse to triage SITUATION: Patient calling with Covid like symptoms BACKGROUND: Hx of Lupus, biological given, worried about sx ASSESSMENT: Symptom Description / Location: fatigue, muscle aches, diarrhea denies blood in stool, since yesterday currently on mensis Pain (0-10): 11/05 body aches Temp: 99.7 0400 this am Treatment / Response: nyquil cold flu RECOMMENDATION: See care advice and disposition for Guidelines First positive answer recorded, all responses to prior questions were negative. If symptoms increase, change, or if new symptoms develop, call back or call your HCP. Recommendations were based on caller information and are not a diagnosis. Verified and reviewed all triage information with caller. o Caller verbalizes understanding of the above information. [...] calling. JESSICA PEREIRA RN Reason for Disposition ? ? HIGH RISK patient (e.g., age > 64 years, diabetes, heart or lung disease, weak immune system) Protocols used: CORONAVIRUS (COVID-19) DIAGNOSED OR AXABVWYBS-L-ER * Telephone Encounter - Hattie Kruger - 11/13/2019 7:46 AM CDT Images from the original note were not included. Travel Screening Question Response In the last month, have you been in contact with someone who was confirmed or suspected to have Coronavirus / COVID-19? Yes Have you had a COVID-19 viral test in the last 14 days? No Do you have any of the following new or worsening symptoms? Fever;Shortness of breath;Cough;Chills;Muscle pain;Joint pain;Diarrhea;Vomiting Have you traveled internationally in the last month? No Travel History Travel since 10/13/19 No documented travel since 10/13/19 Patients whose symptoms require immediate emergency assistance [...] further on next steps. Did patient refuse sewer pipe press operator? no. ??? If patient refuses to speak to a nurse: Please continue to monitor your symptoms and if they get worse, do not hesitate to call us back. We are here 18/09. We recommend you refer to the CDC website regarding guidelines for self- isolation and thank you for calling. Hattie Kruger documented in this encounter Plan of Treatment Not on file documented as of this encounter Visit Diagnoses Not on filedocumented in this encounter Additional Health Concerns Assessment Noted Time PHQ-9 Depression Total Score: 0 03/25/19 20 10:00 AM MOP HANDLE ASSEMBLER documented as of this encounter Care Teams Paper Roll Machine Operator Relationship Specialty Start Date End Date Gayla Barker, BOULEVARD GLASSWARE REPLACER, PRE KINDERGARTEN TEACHER [address] [place] [address] PCP - General Advanced Practice Nurse 03/25/19 Ct, [facility] [place] [facility] 09/03/19 documented as of this encounter
--- OUTSIDE RECORDS SUMMARY | 2024-02-24 19:46 | XMS_ITS | Encounter Summary ---
Author Organization [facility] Address [address] [place] [address] Phone Care Team Providers Care Comfort Station Attendant Name Role Phone Gayla Barker APRN, CNP Primary Care Provider Ct, Acute Covid At Home Care Unavailable Marianela vailable Reason for Visit * Reason Onset Date Comments COVID-19 09/12/2019 ED Follow-up 09/12/2019 Encounter Details Date Type Department Care Team (Late st Contact Info) Description 09/12/[address] 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 Yes 09/12/2019 12:28 PM CDT documented as of this encounter Miscellaneous Notes * Telephone Encounter - Sara Wasserman, RN - 09/12/2019 12:41 PM CDT Scheduling is calling and reports that the patient was scheduled an ED F/U today 09/12/19 at 4:30. Patient has COVID like symptoms but tested neg for COVID 09/04/19 in EMR Patient also told dolphin trainer she had a negative COVID test at [facility] ED yesterday. Just giving PCP the details of this patient visit. Just an FYI documented in this encounter Plan of Treatment Not on file documented as of this encounter Visit Diagnoses Not on filedocumented in this encounter Additional Health Concerns Assessment Noted Time PHQ-9 Depression Total Score: 0 03/25/19 20 10:00 AM LITIGATION SERVICES MANAGER documented as of this encounter Care Teams Comfort Station Attendant Relationship Specialty Start Date End Date Gayla Barker, MASON HELPER, MEDICAL INTERN [address] [place] [address] PCP - General Advanced Practice Nurse 03/25/19 Ct, [facility] [place] [facility] 09/03/19 documented as of this encounter
--- OUTSIDE RECORDS SUMMARY | 2024-02-24 19:46 | XMS_ITS | Encounter Summary ---
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 No / Unsure 10/16/2019 6:34 PM CDT documented as of this encounter Plan of Treatment Not on file documented as of this encounter Visit Diagnoses Not on filedocumented in this encounter Additional Health Concerns Assessment Noted Time PHQ-9 Depression Total Score: 0 03/25/19 20 10:00 AM BUDGET SPECIALIST documented as of this encounter Care Teams Supervisor Dry Cell Assembly Relationship Specialty Start Date End Date Gayla Barker APRN, CNP [address] [place] [address] PCP - General Advanced Practice Nurse 03/25/19 Ct, [facility] [place] [facility] 09/03/19 documented as of this encounter
--- OUTSIDE RECORDS SUMMARY | 2024-02-24 19:46 | XMS_ITS | Encounter Summary ---
Author Organization [facility] Address [address] [place] [address] Phone Care Team Providers Care Clinical Trial Educator Name Role Phone Daryl Barker APRN, GOLF CLUB HEAD INSPECTOR Primary Care Provider Ct, Acute Covid At Home Care Unavailable Marianela vailable Reason for Visit * Reason Onset Date Comments Medication Refill 10/15/2019 xanax Encounter Details Date Type Department Care Team (Late st Contact Info) Description 10/15/2019 MyChart RX Renewal [facility] - Primary Care - Jessica [address] [place] [address] Paige Kaur APRN, GOLF CLUB HEAD INSPECTOR [address] [place] [address] Medication Renewal Declined Social History Tobacco Use Types Packs/Day Years [...] file Legal Sex Female 10:27 AM AIR ROUTE TRAFFIC 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 No / Unsure 10/17/2019 9:17 AM CDT documented as of this encounter Miscellaneous Notes * Telephone Encounter - Daryl Barker APN, CNP - 10/16/2019 12:16 PM CDT This was just refilled a week ago. * Telephone Encounter - Paige Kaur APN, CNP - 10/16/2019 8:06 AM CDT I am not her PCP, I will not be filling this. * Telephone Encounter - Minal Veras RN - 10/16/2019 7:46 AM CDT Last OV: 07/25/19Next OV Next OV: Today with Burton. Last RF on 10/07/19, take daily prn. Please change date if not appropriate, thank you. Medication Dispense History (from 06/18/2019 to 10/15/2019) ALPRAZolam Dispensed Written Strength Quantity Refills Days Supply Provider Pharmacy Alprazolam 10/07/2019 10/07/2019 0.25MG 15 0 15 , PAIGE KAUR E, FNP [facility] Pharm[facility] Alprazolam 09/08/2019 09/05/2019 0.25MG 30 0 10 , DARYL BARKER [facility] Pharmacy Alprazolam 08/19/2019 08/19/2019 0.25MG 30 0 10 , DARYL BARKER [facility] Pharmacy Alprazolam 07/25/2019 07/25/2019 0.25MG 30 0 10 , DARYL BARKER [facility] Pharmacy Alprazolam 07/09/2019 07/09/2019 0.25MG 30 0 10 , DARYL BARKER [facility] Pharm[facility] External Sources Source Last Checked for Updates Status [facility] 10/15/2019 9:32 AM History Response Filed Routing to provider per protocol as medication(s) can not be signed by a nurse for approval. documented in this encounter Plan of Treatment Not on file documented as of this encounter Visit Diagnoses Not on filedocumented in this encounter Additional Health Concerns Assessment Noted Time PHQ-9 Depression Total Score: 0 03/25/19 10:00 AM AIR ROUTE TRAFFIC CONTROLLER documented as of this encounter Care Teams Clinical Trial Educator Relationship Specialty Start Date End Date Daryl Barker, ORCHID GROWER, GOLF CLUB HEAD INSPECTOR [address] [place] [address] PCP - General Advanced Practice Nurse 03/25/19 Ct, [facility] [place] [facility] 09/03/19 documented as of this encounter
--- OUTSIDE RECORDS SUMMARY | 2024-02-24 19:46 | XMS_ITS | Encounter Summary ---
Author Organization [facility] Care Team Providers Care Rail Grinder Name Role Phone Gayla Barker BOMB TECHNICIAN, ELECTRONIC TEST TECHNICIAN Primary Care Provider Ct, Acute Covid At Home Care Unavailable Marianela vailable Encounter Details Date Type Department Care Team (Latest Contact Info) Description 10/17/2019 Travel Social History Tobacco Use Types Packs/Day [...] file Legal Sex Female 10:27 AM MEDICAL RADIATION THERAPIST Gender Identity Not on file Sexual Orientation Not on file COVID-19 Exposure Response Date Recorded In the last month, have you been in contact with someone who was confirmed or suspected to have Coronavirus / COVID-19? Yes 10/17/2019 9:02 PM CDT documented as of this encounter Plan of Treatment Not on file documented as of this encounter Visit Diagnoses Not on filedocumented in this encounter Additional Health Concerns Infection Onset Date Last Indicated Resolved Time COVID - 19 10/17/2019 10/18/2019 10/22/2019 3:33 PM CDT Assessment Noted Time PHQ-9 Depression Total Score: 0 03/25/19 20 10:00 AM MEDICAL RADIATION THERAPIST documented as of this encounter Care Teams Rail Grinder Relationship Specialty Start Date End Date Gayla Barker, BOMB TECHNICIAN, ELECTRONIC TEST TECHNICIAN [address] [place] [address] PCP - General Advanced Practice Nurse 03/25/19 Ct, [facility] [place] [facility] 09/03/19 documented as of this encounter
--- OUTSIDE RECORDS SUMMARY | 2024-02-24 19:46 | XMS_ITS | Encounter Summary ---
Author Organization [facility] Care Team Providers Care Senior Operations Analyst Name Role Phone Gayla Barker HEAD PASTRY CHEF, CHURCH ADMINISTRATOR Primary Care Provider Ct, Acute Covid At Home Care Unavailable Marianela vailable Encounter Details Date Type Department Care Team (Latest Contact Info) Description 10/01/2019 Travel Social History Tobacco Use Types Packs/Day [...] on file Legal Sex Female 10:27 AM WET END SUPERVISOR Gender Identity Not on file Sexual [...] Total Score: 0 03/25/19 20 10:00 AM WET END SUPERVISOR documented as of this encounter Care Teams Senior Operations Analyst Relationship Specialty Start Date End Date Gayla Barker, HEAD PASTRY CHEF, CHURCH ADMINISTRATOR [address] [place] [address] PCP - General Advanced Practice Nurse 03/25/19 Ct, [facility] [place] [facility] 09/03/19 documented as of this encounter
--- OUTSIDE RECORDS SUMMARY | 2024-02-24 19:46 | XMS_ITS | Encounter Summary ---
Author Organization [facility] Address [address] [place] [address] Phone Care Team Providers Care Feeder Worker Power Unit Operator Name Role Phone Gayla Barker APRN, BEET FLUMER Primary Care Provider Ct, [facility] Unavailable Marianela vailable Encounter Details Date Type Department Care Team (Latest Contact Info) Description 09/09/2019 [facility] Ad[facility] [address] [place] [address] Provider, Not On File [place] [...] file Legal Sex Female 10:27 AM MEDICAL PHYSIOLOGIST Gender Identity Not on file Sexual Orientation Not on file COVID-19 Exposure Response Date Recorded In the last month, have you been in contact with someone who was confirmed or suspected to have Coronavirus / COVID-19? Yes 09/03/2019 7:37 PM CDT documented as of this encounter Plan of Treatment Not on file documented as of this encounter Results * (ABNORMAL) UR MICROALBUMIN/CREATININE RATIO RANDOM (09/23/2019 5:01 PM CDT) RAN UR MICROALBUMIN 24.37(H) <=2.00 mg/dL 09/23/2019 6:42 PM CDT [facility] CREATININE URINE 121.7 28.0 - 217.0 mg/dL 09/23/2019 6:42 PM CDT [facility] ALB/CREAT RATIO 200(H) 1 - 30 mg/g CRE 09/23/2019 6:42 PM CDT [facility] Urine Non-Phlebotomy Collection / Unknown 09/23/2019 5:01 PM CDT 09/23/2019 5:51 PM CDT us Not On File Provider URINE ORDERABLES Final Resu lt [facility] [address] [place] [address] * (ABNORMAL) CMP (COMPREHENSIVE METABOLIC PANEL) (09/23/2019 4:59 PM CDT) Pathologist [facility] SODIUM 138 136 - 144 mmol/L 09/23/2019 6:34 PM CDT [facility] POTASSIUM 4.4 3.5 - 5.1 mmol/L 09/23/2019 6:34 PM CDT [facility] CHLORIDE 100 100 - 110 mmol/L 09/23/2019 6:34 PM CDT [facility] CO2, VENOUS 25 22 - 32 mmol/L 09/23/2019 6:34 PM CDT [facility] ANION GAP 17.4 8.0 - 20.0 mmol/L 09/23/2019 6:34 PM CDT [facility] GLUCOSE 85 70 - 99 mg/dL 09/23/2019 6:34 PM CDT [facility] BUN 13 6 - 20 mg/dL 09/23/2019 6:34 PM CDT [facility] CREATININE, BLOOD 0.50(L) 0.60 - 1.10 mg/dL 09/23/2019 6:34 PM CDT [facility] BUN/CREATININE RATIO 26(H) 12 - 20 ratio 09/23/2019 6:34 PM CDT [facility] TOTAL PROTEIN 7.1 6.0 - 8.3 g/dL 09/23/2019 6:34 PM CDT [facility] ALBUMIN 4.7 3.5 - 5.2 g/dL 09/23/2019 6:34 PM CDT [facility] Comment: The colormetric methods used for the determination of Albumin may lead to falsely elevated test results in patients suffering from renal failure or insufficiency due to interference with other proteins. A/G RATIO 2.0 1.0 - 2.0 09/23/2019 6:34 PM CDT [facility] CALCIUM 9.8 8.9 - 10.3 mg/dL 09/23/2019 6:34 PM CDT [facility] T BILI <=0.2 <=1.2 mg/dL 09/23/2019 6:34 PM CDT [facility] SGOT (AST) 14 <=32 U/L 09/23/2019 6:34 PM CDT [facility] SGPT (ALT) 14 <=33 U/L 09/23/2019 6:34 PM CDT [facility] ALKALINE PHOSPHATASE 58 35 - 105 U/L 09/23/2019 6:34 PM CDT [facility] GFR, EST. NONAFRICAN >60 >=60 09/23/2019 6:34 PM CDT [facility] GFR, EST. >60 >=60 020 6:34 PM CDT [facility] Comment: Creatinine Clearance is the preferred criteria for selecting drug dose adjustments in renally impaired patients. ??The GFR is provided as additional pertinent clinical information. GFR is reported in mL/min/1.73 sq m. Blood Venipuncture / Unknown 09/23/2019 4:59 PM CDT 09/23/2019 5:51 PM CDT us Not On File Provider CHEMISTRY ORDERABLES Final Result [facility] [address] [place] [address] * (ABNORMAL) COMPLETE BLOOD COUNT (CBC) WITHOUT DIFF (09/23/2019 4:59 PM CDT) WBC 9.99 4.00 - 12.00 10(3)/mcL 09/23/2019 5:55 PM CDT [facility] RBC 4.22 3.80 - 5.30 10(6)/mcL 09/23/2019 5:55 PM CDT [facility] HEMOGLOBIN (HGB) 11.8(L) 12.0 - 15.8 g/dL 09/23/2019 5:55 PM CDT [facility] HEMATOCRIT (HCT) 38.3 36.0 - 47.0 % 09/23/2019 5:55 PM CDT [facility] MCV 90.8 82.0 - 96.0 fL 09/23/2019 5:55 PM CDT [facility] MCH 28.0 26.0 - 34.0 pg 09/23/2019 5:55 PM CDT [facility] MCHC 30.8(L) 31.0 - 36.0 g/dL 09/23/2019 5:55 PM CDT [facility] PLATELET COUNT 377 140 - 440 10(3)/[facility] 09/23/2019 5:55 PM CDT [facility] RDW 14.1 11.8 - 15.5 % 09/23/2019 5:55 PM CDT [facility] MPV 9.6(L) 9.7 - 12.4 fL 09/23/2019 5:55 PM CDT [facility] Blood Venipuncture / Unknown 09/23/2019 4:59 PM CDT 09/23/2019 5:51 PM CDT us Not On File Provider HEMATOLOGY ORDERABLES Final Result [facility] [address] [place] [address] * URINALYSIS REFLEX IF INDICATED BY ABNORMAL RESULTS (09/11/2019) Urine URINE SPECIMEN / Unknown us Not On File Provider URINE ORDERABLES Final Resu lt documented in this encounter Visit Diagnoses 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 Proteinuria, unspecified type Essential hypertension, malignant documented in this encounter Additional Health Concerns Infection Onset Date Last Indicated Resolved Time COVID - 19 09/03/2019 09/04/2019 09/09/2019 11:2 5 AM CDT Assessment Noted Time PHQ-9 Depression Total Score: 0 03/25/19 20 10:00 AM MEDICAL PHYSIOLOGIST documented as of this encounter Care Teams Feeder Worker Power Unit Operator Relationship Specialty Start Date End Date Gayla Barker, CONSTRUCTION DIRECTOR, BEET FLUMER [address] [place] [address] PCP - General Advanced Practice Nurse 03/25/19 Ct, [facility] [place] [employer] 09/03/19 documented as of this encounter
--- OUTSIDE RECORDS SUMMARY | 2024-02-24 19:46 | XMS_ITS | Encounter Summary ---
Author Organization [facility] Address [address] [place] [address] Phone Care Team Providers Care Artificial Leather Calender Operator Name Role Phone Gayla Barker APRN, OPERATIONS SUPERVISOR 2ND SHIFT Primary Care Provider Reason for Visit * Reason Comments Ear Pain Encounter Details Date Type Department Care Team (Late st Contact Info) Description 09/01/2019 10:00 AM CDT Urgent Care Visit [facility] [place] [address] [place] [phone] Chitra Kaur APRN, OPERATIONS SUPERVISOR 2ND SHIFT [address] [place] [address] Otalgia of both ears (Primary Dx) Discharge Disposition: Discharged to home [...] on file Legal Sex Female 10:27 AM COMPOUNDING 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 No / Unsure 09/01/2019 9:56 AM CDT documented as of this encounter Last Filed Vital Signs Vital Sign Reading Time Taken Comments Blood Pressure 128/64 09/01/2019 10:01 AM CDT Pulse 82 09/01/2019 10:01 AM CDT Temperature 36.7 ??C (98 ??F) 09/01/2019 10:01 AM CDT Respiratory Rate 16 09/01/2019 10:01 AM CDT Oxygen Saturation 98% 09/01/2019 10:01 AM CDT Inhaled Oxygen Concentration - - Weight 75.8 kg (167 lb) 09/01/2019 10:01 AM CDT Height - - Body Mass Index 29.58 08/28/2019 7:57 PM CDT documented in this encounter Patient Instructions * Patient Instructions* Chitra Kaur APN, OPERATIONS SUPERVISOR 2ND SHIFT - 09/01/2019 10:00 AM CDT Images from the original note [...] care of yourself: ?? You may use [id number] medicine as directed by your healthcare provider [...] your healthcare provider if you may use eitj-gih-bjutkht decongestants such as phenylephrineor pseudoephedrine. Keep in [...] Stiff neck ?? Unusual drowsiness or confusion [employer] last reviewed this educational content on 01/26/2019 ?? [employer]. [address] [place] [address], [place] [address]. All rights reserved. This information is not intended as a substitute for professional medical care. Always follow your healthcare professional's instructions. You need to schedule a follow up with PCP for all other health issues and concerns. AVS from today was printed, discussed with patient/family and given to patient/family documented in this encounter Progress Notes * Khushbu Watters RN - 09/01/2019 10:00 AM CDT Carito Rausch complains of Patient presents to office with a several week history of bilateral ear pain. Sore throat that started one day ago. She is taking mucinex with no improvement. She is also complaining of lower back pain that radiated around her flank to her lower abdomen noted over the past 2 weeks. Ear Pain There is pain in both ears. The current episode started 1 to 4 weeks ago. The problem has been gradually worsening. There has been no fever. The pain is at a severity of 5/10. Associated symptoms include a sore throat. Today's Review of Systems HENT: Positive for ear pain and sore throat. * Chitra Kaur APN, CNP - 09/01/2019 10:00 AM CDT Subjective: Chief complaint and all history documented by ancillary staff, and any copy/pasted information werereviewed and verified, with additions or corrections, as appropriate. Past family, social, medical history was reviewed. Patient reports a 2 week history of ear pain and a 1 day history of sore throat. She has a long medical history with frequent ER and clinic visits. She states that she has recently been treated for multiple issues in the past month including trichamonas, UTI/kidney infections. She has been tested over 10 times for COVID (all negative). She has a long list of complaints today. Advised that we willdiscuss the sore throat and ear pain. She will need to follow up with PCP for all her other issues.Per patient in the last month she has taken azithromycin, rocephine, flagyl, keflex, and is currently on amoxicillin 500 mg TID that she got from the ER yesterday. Review of Systems Constitutional: Negative for fever. HENT: Positive for ear pain, rhinorrhea and sore throat. Negative for ear discharge and hearing loss. Objective: Physical Exam Vitals signs and nursing note reviewed. HENT: Right Ear: Ear canal normal. A middle ear effusion (mild, clear fluid) is present. Left Ear: Ear canal normal. A middle ear effusion (mild, clear fluid) is present. Ears: Comments: Ear canals are not impacted with ear wax. There is a very small amount of wax noted in the canal with the TM being visible with out wax removal. Mouth/Throat: Lips: [place]. Mouth: Mucous membranes are moist. Pharynx: Oropharynx is clear. Cardiovascular: Rate and Rhythm: Normal rate. Pulmonary: Effort: Pulmonary effort is normal. Breath sounds: Normal breath sounds. Neurological: Mental Status: She is alert. Vitals: 09/01/19 1001 BP: 128/64 BP Location: Left Arm BP Position: Sitting BP Cuff Size: Large Pulse: 82 Resp: 16 Temp: 98 ??F (36.7 ??C) TempSrc: Oral SpO2: 98% Weight: 167 lb (75.8 kg) Assessment and Plan See Diagnoses, Orders, Follow-up, and Instructions Diagnoses and all orders for this visit: Otalgia of both ears use flonase. Stop all other OTC medications that are not needed. Avoid using the multi symptoms medications as these may be causing some of your issues. Follow up with your PCP for all other health issues. AVS from today was printed, discussed with patient/family and given to patient/family documented in this encounter Plan of Treatment Not on file documented as of this encounter Visit Diagnoses Diagnosis Otalgia of both ears- Primary Otalgia, unspecified documented in this encounter Additional Health Concerns Assessment Noted Time PHQ-9 Depression Total Score: 0 03/25/19 20 10:00 AM COMPOUNDING TECHNICIAN documented as of this encounter Care Teams Artificial Leather Calender Operator Relationship Specialty Start Date End Date Gayla Barker APRN, HARSHA [address] [place] [address] PCP - General Advanced Practice Nurse 03/25/19 documented as of this encounter
--- OUTSIDE RECORDS SUMMARY | 2024-02-24 19:46 | XMS_ITS | Encounter Summary ---
Author Organization [facility] Care Team Providers Care Textile Finisher Name Role Phone Gayla Barker FIRE POT OPERATOR, TECHNOLOGY SALES REPRESENTATIVE Primary Care Provider Ct, Acute [facility] Home [facility] Unavailable Marianela vailable Encounter Details Date Type Department Care Team (Latest Contact Info) Description 11/13/2019 Travel Social History Tobacco Use Types Packs/Day [...] on file Legal Sex Female 10:27 AM FINISHED CARPET INSPECTOR Gender Identity Not on file Sexual [...] Depression Total Score: 0 03/25/19 10:00 AM FINISHED CARPET INSPECTOR documented as of this encounter Care Teams Textile Finisher Relationship Specialty Start Date End Date Gayla Barker, FIRE POT OPERATOR, TECHNOLOGY SALES REPRESENTATIVE [address] [place] [address] PCP - General Advanced Practice Nurse 03/25/19 Ct, [facility] [place] [employer] [place] 09/03/19 documented as of this encounter
--- OUTSIDE RECORDS SUMMARY | 2024-02-24 19:46 | XMS_ITS | Encounter Summary ---
Author Organization [facility] Address [address] [facility] [place] [address] Phone Care Team Providers Care Live Truck Operator Name Role Phone Gayla Barker APRN, APPOINTMENT SPECIALIST Primary Care Provider Ct, Acute Covid At Home Care Unavailable Marianela vailable Reason for Visit * Reason Comments COVID-19 Encounter Details Date Type Department Care Team ([facility] Contact Info) Description 10/17/2019 9:45 PM CDT Telemedicine [facility] [address] [place] [address] Cassandra Mojica APRN, APPOINTMENT SPECIALIST [address] [place] [address] Fatigue, unspecified type (Primary Dx); Fever, unspecified fever cause; Close exposure to COVID-19 virus; Diarrhea, unspecified type Discharge Disposition: Discharged to [...] Legal Sex Female 10:27 AM DIRECTOR OF CATERING Gender Identity Not on file Sexual Orientation Not on file COVID-19 Exposure Response Date Recorded In the last month, have you been in contact with someone who was confirmed or suspected to have Coronavirus / COVID-19? Yes 10/17/2019 9:02 PM CDT documented as of this encounter Progress Notes * Cassandra Chavira E - 10/17/2019 9:45 PM CDT Images from the original note were not included. [facility] SUBJECTIVE Chief Complaint Patient presents with ??? COVID-19 Patent calling about exposure to COVID with positive symptoms. Patient states that family member found out today they are positive. Patient starts chemo on Sunday for lupus, pt states she takes prednisone daily (for 2 years). She states that symptoms started 3 days ago but have gotten worse, patient states she has vomited over the past few days, is able to keep water down. Can keep fluids down. Urinating normal. Can't keep much food down. Doesn't feel like she is dehydrated. Denies SOB or wheezing. Denies cough. Having diarrhea. Having headaches and chest congestion. States that she feels like she has a fever, last temp 99.8. has been taking Excederin, abel juan alberto, lucylanta. She is wantingto be tested. Went on vacation last week to [place], [place]. States that she has some zofran that she was prescribed and takes PRN. She is going to try one zofran. She is aware of the side effects with her other medications. HPI Allergies Allergen Reactions ??? Effexor [Venlafaxine] [...] (shortness of breath). 8.5 g 0 ??? [START ON 10/21/2019] ALPRAZolam (XANAX) 0.25 MG Tablet Take 1 Tab by mouth 2 times daily as needed for Anxiety. 30 Tab 0 ??? HYDROcodone-acetaminophen (NORCO) 5-325 MG Tablet Take 1 Tab by mouth every 4 hours. ??? hydroxychloroquine (PLAQUENIL) 200 MG Tablet Take 1 Tab by mouth daily. 90 Tab 3 ??? OMEPRAZOLE PO Take 20 mg by mouth. ??? predniSONE (DELTASONE) 1 MG Tablet Take [...] or coughing noted during dialogue. Physical Exam Telemedicine visit. ASSESSMENT/PLAN: Education (as applicable): Testing warranted at [facility]. Test ordered. Added to list for tomorrow. - Discussed further in-person evaluation including option [...] take Tylenol PRN for fever, body aches. Discussed BRAT diet. Luke go to ER if she is having symptoms of dehydration. She will call her chemo doctor in morning. She states that she sent a message to her through [employer]. - If you do not live alone: [...] of the above information. Recommended disposition of Other testing supported by the above documentation. Patient agreed with disposition. Diagnoses and all orders for this visit: Fatigue, unspecified type - SARS-COV-2 BY PCR; Future Fever, unspecified fever cause - SARS-COV-2 BY PCR; Future Close exposure to COVID-19 virus - SARS-COV-2 BY PCR; Future Patient was assessed via telephone for a duration of 0-15 minutes. Patient verbally consented for this service to be performed. - Cassandra Rao APN, APPOINTMENT SPECIALIST documented in this encounter Plan of Treatment Not on file documented as of this encounter Results * SARS-COV-2 BY PCR (10/18/2019 8:52 AM CDT) SARSCOV2 NOT DETECTED (Reference Range for this test is Not Detected) 10/20/2019 1:18 PM CDT [facility] Swab NASOPHARYNGEAL STRUCTURE / Unknown Non-Phlebotomy Collection / Unknown 10/18/2019 8:52 AM CDT 10/18/2019 8:52 AM CDT Narrative [facility] - 10/20/2019 1:18 PM CDT Authorized Fact Sheets about this test for providers and patients are available at: https://www.fda.gov/medical-devices/ssgzjpfnm-umpxbjhsgs-ppgowtw-devices/emergen cy-us e-authorizations us Cassandra Rao APRN, CNP MICROBIOLOGY - GENERAL ORDERABLES Final Result [facility] [address] [place] [address], documented in this encounter Visit Diagnoses Diagnosis Fatigue, unspecified type- Primary Fever, unspecified fever cause Close exposure to COVID-19 virus Diarrhea, unspecified type documented in this encounter Additional Health Concerns Infection Onset Date Last Indicated Resolved Time COVID - 19 10/17/2019 10/18/2019 10/22/2019 3:33 PM CDT Assessment Noted Time PHQ-9 Depression Total Score: 0 03/25/19 20 10:00 AM DIRECTOR OF CATERING documented as of this encounter Care Teams Live Truck Operator Relationship Specialty Start Date End Date Gayla Barker, ANNIE, APPOINTMENT SPECIALIST [address] [place] [address] PCP - General Advanced Practice Nurse 03/25/19 Ct, [facility] [place] [employer] [place] 09/03/19 documented as of this encounter
--- OUTSIDE RECORDS SUMMARY | 2024-02-24 19:46 | XMS_ITS | Encounter Summary ---
Author Organization [facility] Address [address] [place] [address] Phone Care Team Providers Care Hospital Administrative Assistant Name Role Phone Gayla Barker APRN, HARSHA Primary Care Provider Reason for Visit * Reason Onset Date Comments Other 08/28/2019 Encounter Details Date Type Department Care Team (Late st Contact Info) Description 08/28/2019 Telephone [facility] - Primary Care - [place] [address] [place] [address] Marleni Manrique APRN, STITCHER SPECIAL MACHINE [address] [place] [address] Other Social History Tobacco Use Types Packs/Day [...] on file Legal Sex Female 10:27 AM ADMISSIONS REPRESENTATIVE Gender Identity Not on file Sexual Orientation Not on file COVID-19 Exposure Response Date Recorded In the last month, have you been in contact with someone who was confirmed or suspected to have Coronavirus / COVID-19? Yes 08/20/2019 7:17 AM CDT documented as of this encounter Miscellaneous Notes * Telephone Encounter - Leti Doan RN - 08/28/2019 4:24 PM CDT Patient is aware and verbalizes understanding. Patient reports that both of her test were negative. Patient reports that she has had 10 total covid test and they were all negative. Per chart reviewed, [facility] on 08/21/2019 covid test-none detected and on 08/10/2019, covid test none detected. Patient reports that her hemodialysis technician told her that she was covid positive and her appt was cancelled patient was advised to go to the ER to be retested, patient thinks that her hemodialysis technician got her results mixed up. Patient would like to make a telephone ov to discuss labs and dizziness. This RN was advised not to schedule anymore telephone ov after August 28, 2019. Please advise. * Telephone Encounter - Leti Gusman RN - 08/28/2019 2:11 PM CDT Patient scheduled at 4 pm for [facility] ED follow up. She was seen today at [facility] ED. Per MELINDA Culver, Per chart review from today patient states she was COVID positive and had a repeat COVID test. Needs to self quarantine until the follow test is back. If she is still needing follow up can be changed to a telephone exam. IF she needs seen for chronic conditions [facility] and can be seen at that time. Attempted to phone patient. No answer. Message left tocall the office. documented in this encounter Plan of Treatment Not on file documented as of this encounter Visit Diagnoses Not on filedocumented in this encounter Additional Health Concerns Assessment Noted Time PHQ-9 Depression Total Score: 0 01/28/20 20 10:00 AM ADMISSIONS REPRESENTATIVE documented as of this encounter Care Teams Hospital Administrative Assistant Relationship Specialty Start Date End Date Gayla Barker, FINANCE LEAD, STITCHER SPECIAL MACHINE [address] [place] [address] PCP - General Advanced Practice Nurse 03/25/19 documented as of this encounter
--- OUTSIDE RECORDS SUMMARY | 2024-02-24 19:46 | XMS_ITS | Encounter Summary ---
Author Organization [facility] Address [address] [facility] [place] [address] Phone Care Team Providers Care Arts Administrator Or Manager Name Role Phone Gayla Barker APRN, CNP Primary Care Provider Ct, [facility] Unavailable Marianela vailable Reason for Visit * Reason Comments COVID-19 Encounter Details Date Type Department Care Team (Latest Contact Info) Description 11/13/2019 8:15 AM CDT Telemedicine [facility] Digital Contact Center [address] [place] [address] Gayla Burton APRN, CNP Nonintractable headache, unspecified chronicity pattern, unspecified headache type (Primary Dx); Diarrhea, unspecified type; Vomiting, intractability of vomiting [...] on file Legal Sex Female 10:27 AM GOVERNOR ASSEMBLER Gender Identity Not on file Sexual Orientation Not on file COVID-19 Exposure Response Date Recorded In the last month, have you been in contact with someone who was confirmed or suspected to have Coronavirus / COVID-19? Yes 11/13/2019 7:53 AM CDT documented as of this encounter Progress Notes * JosephineGayla mohamud - 11/13/2019 8:15 AM CDT Images from the original note were not included. [email or web address] Patient calling with possible COVID-19 symptoms which started 11-11-19 Patient has taken nyquil for symptoms Patient denies known COVID-19 exposure Patient's medical history reviewed SUBJECTIVE Chief Complaint Patient presents with ??? [...] Dispense Refill ??? ALPRAZolam (XANAX) 0.25 MG Tablet Take 1 Tab by mouth 2 times daily as needed for Anxiety. 30 Tab 0 ??? Belimumab (Benlysta) 200 MG/ML [...] Tab by mouth daily. (Patient taking differently: Take10 mg by mouth.) 90 Tab 3 ??? [...] (HCC) Review of Systems Constitutional: Positive for chills and fatigue. + body aches HENT: Positive for congestion. Negative for sore throat. Respiratory: Positive for cough. Negative for shortness of breath and wheezing. Gastrointestinal: Positive for diarrhea and vomiting (after eating). Neurological: Positive for headaches. Chief complaint and all history documented by ancillary staff were reviewed and verified with additions or corrections as appropriate. OBJECTIVE Speaking in complete sentences. No distress or coughing noted during dialogue. Physical Exam ASSESSMENT/PLAN Outpatient COVID-19 testing ordered, [facility] notified of order/patient information Education (as applicable): Pt would like to use conservative management and remain home. Patient counseled to remain at home unless symptoms get worse. If symptoms worsen, the patient was counseled to call back to their PCP office (or this triage line if no PCP) or go to ED immediately for severe symptoms. If asymptomatic and had close contact with COVID-19 positive individual(s): quarantine at home for 14 days for symptom monitoring. If symptomatic or symptoms develop within those 14 days of quarantine, stay home until these three things have happened: - No fever for 24 hours (without the use of medicine) AND - Other symptoms have improved (ie cough, SOB) AND - at least 10 days have passed since your symptoms first appeared Patient to push fluid intake and take Tylenol PRN for fever, body aches. If you do not live alone: segregate yourself, use a separate bathroom if possible, sleep in a separate area, have no/limited family time, and the person with symptoms is not to prepare food for others. Patient advised to contact employer now to report positive screen and symptoms. - Per CDC: Employers should not require a positive COVID-19 test result or a healthcare provider's note for employees who are sick to validate their illness, qualify for sick leave, or to return to work. [facility] is not providing excuse for work notes or return to work notes at this time per CDC recommendations. Caller verbalizes understanding of the above information. Recommended disposition of Home self-care supported by the above documentation. Patient agreed withdisposition. 1. Nonintractable headache, unspecified chronicity pattern, unspecified headache type SARS-COV-2 BYPCR 2. Diarrhea, unspecified type SARS-COV-2 BY PCR 3. Vomiting, intractability of vomiting not specified, presence of nausea not specified, unspecified vomiting type SARS-COV-2 BY PCR Patient was assessed via telephone for a duration of 0-15 minutes. Patient verbally consented for this service to be performed. - Gayla Burton APN, WOOD BOX MAKER documented in this encounter Plan of Treatment Not on file documented as of this encounter Results * SARS-COV-2 BY PCR (11/13/2019 9:01 AM CDT) SARSCOV2 NOT DETECTED (Reference Range for this test is Not Detected) 11/14/2019 3:12 AM CDT [facility] Swab NASOPHARYNGEAL STRUCTURE / Unknown Non-Phlebotomy Collection / Unknown 11/13/2019 9:01 AM CDT 11/13/2019 9:01 AM CDT Narrative [facility] - 11/14/2019 3:12 AM CDT Authorized Fact Sheets about this test for providers and patients are available at: https://www.fda.gov/medical-devices/nggbdbbko-tzkkjtfzeb-jdizeuf-devices/emergen -us e-authorizations us Gayla Burton HYDRAULIC BILLET MAKER, WOOD BOX MAKER MICROBIOLOGY - GENERAL ORDERABLES Final Result [facility] [address] [place] [address], documented in this encounter Visit Diagnoses Diagnosis Nonintractable headache, unspecified chronicity pattern, unspecified headache type- Primary Diarrhea, unspecified type Vomiting, intractability of vomiting not specified, presence of nausea not specified, unspecified vomiting type documented in this encounter Additional Health Concerns Infection Onset Date Last Indicated Resolved Time COVID - 19 11/13/2019 11/13/2019 11/16/2019 12:0 8 AM CDT Assessment Noted Time PHQ-9 Depression Total Score: 0 03/25/19 10:00 AM GOVERNOR ASSEMBLER documented as of this encounter Care Teams Arts Administrator Or Manager Relationship Specialty Start Date End Date Gayla Barker, HYDRAULIC BILLET MAKER, WOOD BOX MAKER [address] [place] [address] PCP - General Advanced Practice Nurse 03/25/19 Ct[facility] [place] [facility] 09/03/19 documented as of this encounter
--- OUTSIDE RECORDS SUMMARY | 2024-02-24 19:46 | XMS_ITS | Encounter Summary ---
Author Organization [facility] Care Team Providers Care Adobe Layer Helper Name Role Phone Gayla Barker APRN, HARSHA Primary Care Provider Ct, [facility] Unavailable Marianela vailable Encounter Details Date Type Department Care Team (Latest Contact Info) Description 11/11/2019 Travel Social History Tobacco Use Types Packs/Day [...] on file Legal Sex Female 10:27 AM CHAIN MAKER LOOM CONTROL Gender Identity Not on file Sexual Orientation Not on file COVID-19 Exposure Response Date Recorded In the last month, have you been in contact with someone who was confirmed or suspected to have Coronavirus / COVID-19? No / Unsure 11/11/2019 5:32 PM CDT documented as of this encounter Plan of Treatment Not on file documented as of this encounter Visit Diagnoses Not on filedocumented in this encounter Additional Health Concerns Assessment Noted Time PHQ-9 Depression Total Score: 0 03/25/19 20 10:00 AM CHAIN MAKER LOOM CONTROL documented as of this encounter Care Teams Adobe Layer Helper Relationship Specialty Start Date End Date Gayla Barker APRN, CNP [address] [place] [address] PCP - General Advanced Practice Nurse 03/25/19 Ct[facility] [place] [facility] 09/03/19 documented as of this encounter
--- OUTSIDE RECORDS SUMMARY | 2024-02-24 19:46 | XMS_ITS | Encounter Summary ---
Author Organization [employer] Care Team Providers Care Furniture Cleaner Name Role Phone Gayla Barker MUSHROOM GROWING SUPERVISOR, GENERAL MANAGER ROAD PRODUCTION Primary Care Provider Ct, [facility] Unavailable Marianela vailable Encounter Details Date Type Department Care Team (Latest Contact Info) Description 11/12/2019 Travel Social History Tobacco Use Types Packs/Day [...] file Legal Sex Female 10:27 AM CHILD CUSTODY EVALUATOR Gender Identity Not on file Sexual Orientation Not on file COVID-19 Exposure Response Date Recorded In the last month, have you been in contact with someone who was confirmed or suspected to have Coronavirus / COVID-19? No / Unsure 11/12/2019 2:17 PM CDT documented as of this encounter Plan of Treatment Not on file documented as of this encounter Visit Diagnoses Not on filedocumented in this encounter Additional Health Concerns Assessment Noted Time PHQ-9 Depression Total Score: 0 03/25/19 20 10:00 AM CHILD CUSTODY EVALUATOR documented as of this encounter Care Teams Furniture Cleaner Relationship Specialty Start Date End Date Gayla Barker, MUSHROOM GROWING SUPERVISOR, GENERAL MANAGER ROAD PRODUCTION [address] [place] [address] PCP - General Advanced Practice Nurse 03/25/19 Ct[facility] [place] [facility] 09/03/19 documented as of this encounter
--- OUTSIDE RECORDS SUMMARY | 2024-02-24 19:46 | XMS_ITS | Encounter Summary ---
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 No / Unsure 09/17/2019 3:32 PM CDT documented as of this encounter Plan of Treatment Not on file documented as of this encounter Visit Diagnoses Not on filedocumented in this encounter Additional Health Concerns Assessment Noted Time PHQ-9 Depression Total Score: 0 03/25/19 20 10:00 AM MICROSOFT NET DEVELOPER documented as of this encounter Care Teams Carroting Machine Offbearer Relationship Specialty Start Date End Date Gayla Barker APRN, CNP [address] [place] [address] PCP - General Advanced Practice Nurse 03/25/19 Ct[facility] [place] [facility] 09/03/19 documented as of this encounter
--- OUTSIDE RECORDS SUMMARY | 2024-02-24 19:46 | XMS_ITS | Encounter Summary ---
Author Organization [facility] Address [address] [place] [address] Phone Care Team Providers Care Rapid Extractor Operator Name Role Phone Gayla Barker APRN, BUSINESS APPLICATIONS SPECIALIST Primary Care Provider Ct, [facility] Unavailable Marianela vailable Brian Mon MD Primary Care Provider [phone] Encounter Details Date Type Department Care Team (Late st Contact Info) Description 09/23/2019 Transcribe Orders [facility] Central Scheduling [address] [place] [address] [place]ino Zaldivar [address] [facility] [address] [place] [id number] Laceration of flexor muscle, fascia and tendon of right little finger at wrist and hand level, initial encounter (Primary Dx) Social History Tobacco Use Types [...] on file Legal Sex Female 10:27 AM LIABILITY ANALYST Gender Identity Not on file Sexual Orientation Not on file COVID-19 Exposure Response Date Recorded In the last month, have you been in contact with someone who was confirmed or suspected to have Coronavirus / COVID-19? No / Unsure 09/23/2019 3:33 PM CDT documented as of this encounter Plan of Treatment Not on file documented as of this encounter Visit Diagnoses Diagnosis Laceration of flexor muscle, fascia and tendon of right little finger at wrist and hand level, initial encounter- Primary documented in this encounter Additional Health Concerns Infection Onset Date Last Indicated Resolved Time COVID - 19 09/28/2019 09/30/2019 09/29/2019 3:10 PM CDT COVID - 19 10/01/2019 10/01/2019 10/04/2019 2:42 AM CDT COVID - 19 10/17/2019 10/18/2019 10/22/2019 3:33 PM CDT COVID - 19 11/13/2019 11/13/2019 11/16/2019 12:0 8 AM CDT COVID - 19 11/25/2019 12/09/2019 12/11/2019 7:53 AM CDT COVID - 19 12/25/2019 12/26/2019 12/28/2019 6:29 AM LIABILITY ANALYST COVID - 19 01/16/2020 01/17/2020 01/23/2020 12:5 2 PM LIABILITY ANALYST COVID - 19 03/18/2020 03/18/2020 03/19/2020 6:44 AM LIABILITY ANALYST COVID - 19 12/06/2020 12/06/2020 12/26/2020 12:1 6 AM CDT COVID - 19 03/05/2021 03/05/2021 03/05/2021 6:11 PM LIABILITY ANALYST COVID - 19 Confirmed 03/05/2021 03/05/2021 022 12:16 AM LIABILITY ANALYST COVID - 19 11/14/2021 11/18/2021 11/28/2021 12:1 6 AM CDT COVID - 19 01/08/2022 01/08/2022 01/18/2022 12:1 6 AM LIABILITY ANALYST COVID - 19 04/25/2022 04/25/2022 05/05/2022 12:1 6 AM LIABILITY ANALYST COVID - 19 10/17/2023 10/17/2023 10/17/2023 1:56 PM CDT Assessment Noted Time PHQ-9 Depression Total Score: 0 03/25/19 10:00 AM LIABILITY ANALYST documented as of this encounter Care Teams Rapid Extractor Operator Relationship Specialty Start Date End Date Gayla Barker APRN, BUSINESS APPLICATIONS SPECIALIST [address] [place] [address] PCP - General Advanced Practice Nurse 03/25/19 Brian Mon MD [address] [place] [address] PCP - General Internal Medicine 10/17/23 Ct[facility] [place] [facility] 09/03/19 documented as of this encounter
--- OUTSIDE RECORDS SUMMARY | 2024-02-24 19:46 | XMS_ITS | Encounter Summary ---
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
--- OUTSIDE RECORDS SUMMARY | 2024-02-24 19:46 | XMS_ITS | Encounter Summary ---
Author Organization [facility] Address [address] [place] [address] Phone Care Team Providers Care Wreath Inspector Name Role Phone Gayla Barker APRN, ASSEMBLER RADIO AND ELECTRICAL Primary Care Provider Ct, [facility] Unavailable Marianela vailable Reason for Visit * Reason Comments ED Follow-up from [facility] 09/11/2019 Encounter Details Date Type Department Care Team (Late st Contact Info) Description 09/17/2019 4:00 PM CDT Office Visit [facility] Primary Care - Jessica [address] [place] [address] Brian Mon MD [address] [place] [address] 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) (Primary Dx) Discharge Disposition: Discharged to home [...] on file Legal Sex Female 10:27 AM INSURANCE ADVISER Gender Identity Not on file Sexual Orientation Not on file COVID-19 Exposure Response Date Recorded In the last month, have you been in contact with someone who was confirmed or suspected to have Coronavirus / COVID-19? No / Unsure 09/17/2019 3:32 PM CDT documented as of this encounter Last Filed Vital Signs Vital Sign Reading Time Taken Comments Blood Pressure 112/82 09/17/2019 3:40 PM CDT Pulse 82 09/17/2019 3:40 PM CDT Temperature 36.7 ??C (98 ??F) 09/17/2019 3:40 PM CDT Respiratory Rate 16 09/17/2019 3:40 PM CDT Oxygen Saturation 98% 09/17/2019 3:40 PM CDT Inhaled Oxygen Concentration - - Weight 76.6 kg (168 lb 14.4 oz) 09/17/2019 3:40 PM CDT Height 160 cm (5' 3 ) 09/17/2019 3:40 PM CDT Body Mass Index 29.92 09/17/2019 3:40 PM CDT documented in this encounter Patient Instructions * Patient Instructions* Irene Candelario, RMDianelys - 09/17/2019 4:00 PM CDT Images from the original note were not included. How to Quit Smoking Smoking is a hard habit to break. About 50% of all??people who have ever smoked have been able to quit. Most people??who still smoke want to quit. Here are some of the best ways to stop smoking. Keep in mind the health benefits of quitting The health benefits of quitting start right away. They keep improving the longer you go without smoking. Knowing this can help inspire you to stay on track. These benefits occur at any age. If you are 17 or 70, quitting is a good choice. Some of the health benefits after your last cigarette include: ?? After 20 minutes: Your blood pressure and pulse return to normal. ?? After 8 hours: Your oxygen levels return to normal. ?? After 2 days: Your ability to smell and taste start to improve as damaged nerves regrow. ?? After 2 to 3 weeks: Your circulation and lung function improve. ?? After 1 to 9 months: Your coughing, congestion, and shortness of breath decrease. Your tirednessdecreases. ?? After 1 year: Your risk of heart attack decreases by 50%. ?? After 5 years: Your risk of lung cancer decreases by 50%. Your risk of stroke becomes the same as a nonsmoker???s. Go cold turkey Most??former smokers quit cold turkey. This means stopping all at once. Trying to cut back slowly often doesn't work as well. This may be because it continues the habit of smoking. Also you may inhale more smoke while smoking fewer cigarettes. This leads to the same amount of nicotine in your body. Get support Support programs can be a big help, especially for heavy smokers. These groups offer lectures, waysto change behavior, and peer support. Here are some ways to find a support program: ?? Free national quitline 125-CYTZ-CTW (881-842-4428) ?? Hospital quit-smoking programs ?? [place] [employer] 552-024-3904 ?? [place] [employer] 173-457-8365 Support at home is important too. Family and friends can offer praise and reassurance. If the smoker in your life finds it hard to quit, encourage them to keep trying. Try jsil-pph-cxfdzql medicine Nicotine replacement therapy??may make it??easier to quit. Some aids are available without a prescription. These include a nicotine patch, gum, and lozenges. But it's best to use these under the careof your healthcare provider. The skin patch gives a steady supply of nicotine. Nicotine gum and lozenges give??short-time doses of low levels of nicotine. Both methods reduce the craving for cigarettes. If you??have nausea, vomiting, dizziness, weakness, or a fast heartbeat, stop using these products. See your provider. Ask about prescription medicine After reviewing??your smoking patterns and past attempts to quit, your healthcare provider may offer a prescription medicine such as bupropion, varenicline, a nicotine inhaler, or nasal spray. Each has advantages and side effects. Your provider can review these with you. Keep trying Most smokers make many attempts at quitting before they succeed. It???s important not to give up. To learn more For more on how to quit smoking, try these resources:? www.cdc.gov/tobacco/quit_smoking/ 762-ZFUG-LNP (872-953-4027) ?? www.smokefree.gov 498-74F-TTFX (219-624-3443) ?? www.lung.org/stop-smoking/ 800-LUNGUSA (483-464-3763) Allison last reviewed this educational content on 01/26/2019 ?? 8729-2165 [employer]. [address] [place] [address], [place] [address]. All rights reserved. This information is not intended as a substitute for professional medical care. Always follow your healthcare professional's instructions. documented in this encounter Progress Notes * Irene Candelario RMA - 09/17/2019 4:00 PM CDT Carito Rausch was provided education materials regarding smoking cessation as noted on the AfterVisit Summary. Counseling Given and Ready to Quit Ivey are updated in the Social History. * Irene Candelario RMA - 09/17/2019 4:00 PM CDT Carito Rausch, 29 y.o., female is here for ED Follow-up (from [facility] on 09/11/2019) Medication Refills: Patient reports/denies need for medication refills. Orders Pended: no Requested Prescriptions No prescriptions requested or ordered in this encounter Home Medications Medication Sig Start Date End Date Taking? Authorizing Provider albuterol 108 (90 Base) MCG/ACT Aerosol Solution take 2 Puffs by inhalation every 4 hours as neededfor Cough (shortness of breath). 06/18/19 Gayla Barker APN, ASSEMBLER RADIO AND ELECTRICAL ALPRAZolam (XANAX) 0.25 MG Tablet Take 1 Tab by mouth 3 times daily as needed for Anxiety. 09/05/19 Yes Gayla Barker APN, ASSEMBLER RADIO AND ELECTRICAL ergocalciferol (VITAMIN D) 03882 UNIT Capsule TAKE 1 CAPSULE BY MOUTH ONE TIME PER WEEK 06/21/19 Isis Sheffield MD Escitalopram Oxalate (LEXAPRO) 5 MG Tablet Take 5 mg by mouth daily. Yes Isis Sheffield MD hydroxychloroquine (PLAQUENIL) 200 MG Tablet Take 1 Tab by mouth daily. 05/09/19 Yes Gayla Barker APN, CNP OMEPRAZOLE PO Take 20 mg by mouth. Yes Emergency, Nurse, RN ondansetron (ZOFRAN) 4 MG Tablet Take 1-2 Tabs by mouth every 8 hours as needed for Nausea - 1st line. 08/31/19 Jorge Ramirez MD predniSONE (DELTASONE) 1 MG Tablet Take 1 Tab by mouth daily. 09/05/19 Yes Gayla Barker APN, CNP predniSONE (DELTASONE) 10 MG Tablet Take 1 Tab by mouth daily. 07/25/19 Yes Gayla Barker APN, CNP Medications Discontinued During This Encounter Medication Reason ??? ketorolac (TORADOL) 10 MG Tablet Therapy completed ??? predniSONE (DELTASONE) 5 MG Tablet Therapy completed I have reviewed [...] Currently Types: Marijuana Smoking Cessation Counseling Given: n/a Health Care Maintenance: Health Maintenance Due Topic Date Due ??? Pneumococcal Immunization (0-64 years) (1 of 1 - PPSV23) 1998 ??? DTaP/Tdap/Td Immunization (2 - Td) 12/29/2018 Orders Pended: n/a The following BPA's have been addressed with the patient today: Smoking * Brian Mon MD - 09/17/2019 4:00 PM CDT Subjective: HPI Patient presents in follow-up from the ER at [place]. This was about a week ago. She had multiple somatic complaints, including body aches and concerns about being exposed to people who had tested positive for COVID-19. This individual has been tested for COVID-19 at least 8 times that I can find inher chart. All the test results are negative. Some of the other symptoms that she describes at times include intermittent confusion, lightheadedness and forgetfulness. She had an EEG done at [facility] yesterday which did show a focus of irritability in the temporal lobe. This would beconsistent with some of the symptoms that she has been experiencing. She had been given a prescription for Depakote in the ER but has not taken the medication out of concerns for side effects with some of the other medicines that she takes routinely. Review of Systems Constitutional: Negative. HENT: Negative. Eyes: Negative. Respiratory: Negative. Cardiovascular: Negative. Gastrointestinal: Negative. Endocrine: Negative. Genitourinary: Negative. Musculoskeletal: Positive for myalgias (diffuse). Skin: Negative. Allergic/Immunologic: Negative. Neurological: Positive for light-headedness. Hematological: Negative. Psychiatric/Behavioral: Positive for decreased concentration. Objective: Physical Exam Constitutional: Appearance: She is well-developed. HENT: Head: Normocephalic. Right Ear: External ear normal. Left Ear: External ear normal. Nose: Nose normal. Eyes: Pupils: Pupils are equal, round, and reactive to light. Neck: Musculoskeletal: Normal range of motion. Cardiovascular: Rate and Rhythm: Normal rate and regular rhythm. Pulmonary: Effort: Pulmonary effort is normal. No respiratory distress. Musculoskeletal: Normal range of motion. Skin: General: Skin is warm and dry. Neurological: Mental Status: She is alert and oriented to person, place, and time. Psychiatric: Attention and Perception: Attention normal. Mood and Affect: Mood is anxious. Speech: Speech normal. Behavior: Behavior normal. Behavior is cooperative. Thought Content: Thought content normal. Judgment: Judgment normal. Assessment and Plan See Diagnoses, Orders, Follow-up, and Instructions I have urged the patient to start taking the Depakote so that she can report to her neurologist next week whether or not it has helped with any of the unusual symptoms she has been experiencing. I have also given her a letter excusing her from work through the end of the month. I have advised her that she should not be driving or engaging in activity that would put her at risk if she were to havea seizure. I have seen and examined the patient on today's date. Documentation for this visit was completed using the assistance of a template. Everything documented in this visit was personally performed todaywith the necessary additions, deletions and changes. documented in this encounter Plan of Treatment Not on file documented as of this encounter Visit Diagnoses Diagnosis 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)- Primary Unspecified epilepsy without mention of intractable epilepsy documented in this encounter Additional Health Concerns Assessment Noted Time PHQ-9 Depression Total Score: 0 03/25/19 20 10:00 AM INSURANCE ADVISER documented as of this encounter Care Teams Wreath Inspector Relationship Specialty Start Date End Date Gayla Barker, IN FLIGHT REFUELING SYSTEM REPAIRER, ASSEMBLER RADIO AND ELECTRICAL [address] [place] [address] PCP - General Advanced Practice Nurse 03/25/19 Ct[facility] [place] Digital MEKHI 09/03/19 documented as of this encounter
--- OUTSIDE RECORDS SUMMARY | 2024-02-24 19:46 | XMS_ITS | Encounter Summary ---
Author Organization [facility] Address [address] [facility] [place] [address] Phone Care Team Providers Care Neuro Intensivist Physician Name Role Phone Gayla Barker APRN, AUTOMOTIVE SERVICE PORTER Primary Care Provider Ct, [facility] Home [facility] Unavailable Marianela vailable Reason for Visit * Radiology Services (Routine) - Closed Specialty Diagnoses / Procedures Referred By Jud freeman Referred To Contact Radiology Diagnoses Laceration of flexor muscle, fascia and tendon of right little finger at wrist and hand level, initial encounter Procedures MRI RIGHT WRIST WO CONTRAST MRI RIGHT WRIST WO/W CONTRAST Chino Zaldivar [facility] [address] [place] [address] Phone: tel: fax: Referral ID Status Reason Start Date Expiration Date Visits Re quested Visits Authorized [id number] Closed 07/09/2019 1 1 Encounter Details Date Type Department Care Team (Latest Contact Info) Description 09/09/2019 8:20 AM CDT - 09/09/2019 11:59 PM CDT Hospital Encounter [facility] MRI [address] [place] [address] Chino Zaldivar [facility] [address] [place] [address] Discharge Disposition: Discharged to home or Selfcare [...] on file Legal Sex Female 10:27 AM WIG STYLIST Gender Identity Not on file Sexual Orientation [...] - Inhaled Oxygen Concentration - - Weight 75.8 kg (167 lb) 09/09/2019 8:25 AM CDT Height - - Body Mass Index 29.58 08/28/2019 7:57 PM CDT documented in this encounter Medications [...] needed for Anxiety. 30 Tab 09/05/2019 0 benzonatate (TESSALON) 100 MG Capsule Take 1 Cap by mouth 3 times daily as needed for Cough for up to 10 days. 30 Cap 09/03/2019 0 ergocalciferol (VITAMIN D) 13775 UNIT Capsule TAKE 1 CAPSULE BY MOUTH ONE TIME PER WEEK 06/21/2019 0 Escitalopram Oxalate (LEXAPRO) 5 MG Tablet Take 5 mg by mouth daily. 0 ketorolac (TORADOL) 10 MG Tablet Take 10 mg by mouth every 4 hours as needed. 07/22/202 0 OMEPRAZOLE PO Take 20 mg by [...] mouth daily. 90 Tab 3 07/25/2019 0 predniSONE (DELTASONE) 5 MG Tablet Take 1 Tab by mouth daily. 90 Tab 3 07/25/2019 0 documented as of this encounter Plan of Treatment Not on file documented as of this encounter Procedures Procedure Name Priority Date/Time Associated Diagnosis Comments MRI RIGHT WRIST WO CONTRAST Routine 09/09/2019 9:44 AM CDT Laceration of flexor muscle, fascia and tendon of right little finger at wrist and hand level, initial encounter documented in this encounter Results * MRI RIGHT WRIST WO CONTRAST (09/09/2019 9:44 AM CDT) Anatomical Region Laterality Modality UPPER EXTREMITY, wrist Right Magnetic Resonance 09/24/2019 9:40 AM CDT Impressions 09/24/2019 9:43 AM CDT IMPRESSION: ?? 1. ?? 1 cm lobular hyperintense structure in continuity with the median nerve in the region of the surgical bed, proximal to the carpal tunnel. ??This is incompletely evaluated without the use IV contrast and prior imaging. ??Differential considerations include postoperative change versus complication. 2. ??Probable denervation intramuscular edema within the thenar musculature. 3. ??Small amount of fluid surrounding the 2nd extensor compartment, as seen with tenosynovitis. Narrative 09/24/2019 9:43 AM CDT EXAM DESCRIPTION: ?? MRI RIGHT WRIST WO CONTRAST REASON FOR STUDY: ?? 29-year-old female with traumatic laceration to the anterior wrist with nerve an arterial damage on 11/30/2018. ??2 surgery since for repair. ??Increasing pain and numbness throughout right hand since June 2019. TECHNIQUE: ??Multiplanar, multisequence MRI of the ??right wrist was performed. ?? An IV was unable to be placed for contrast administration. COMPARISON: ??None FINDINGS: ??Bones: ??No fracture. Joint Effusion: ??No significant joint effusion. ??There is a small amount of fluid at the proximal and distal carpal row. Articular Surfaces: ??No chondromalacia. Evaluation of the intrinsic wrist ligaments is limited in the absence of intra-articular contrast. ??Within that limitation, the following observations are made: Scapholunate Ligament: ??No tear seen. Lunotriquetral Ligament: ??No tear seen. TFC: ??No tear seen. Extensor Tendons: ??Small amount of fluid is noted about the 2nd extensor compartment tendons. ??The tendons themselves are intact. Flexor Tendons and Median Nerve: ??No tendinosis or tenosynovitis. ?? Proximal to the carpal tunnel, there is a 1.0 x 0.7 x 0.7 cm lobulated T2 hyperintense structure in continuity with the median nerve which appears increased in signal at this site. ??This appears to be unrelated to the adjacent vasculature, however, exact delineation is somewhat limited. The contents of Guyon's canal are unremarkable. ??Postsurgical changes noted about the volar soft tissues at the level of the wrist. Other: ??There is increased intramuscular edema within the thenar musculature, particularly the opponents pollicis and abductor pollicis brevis. ??No muscle fatty atrophy. ?? THIS IS AN ELECTRONICALLY VERIFIED FINAL REPORT 09/24/2019 9:40 AM - Electronically signed by Mali Ireland BG: D: ??09/24/2019 9:40 AM T: ??09/24/2019 9:40 AM Report ID: [id number] Reading Location: ??[id number] Procedure Note Mali Ireland MD - 09/24/2019 EXAM DESCRIPTION: MRI RIGHT WRIST WO CONTRAST REASON FOR STUDY: 29-year-old female with traumatic laceration to the anterior wrist with nerve an arterial damage on 11/30/2018. 2 surgery since for repair. Increasing pain and numbness throughout right hand since June 2019. TECHNIQUE: Multiplanar, multisequence MRI of the right wrist was performed. An IV was unable to be placed for contrast administration. COMPARISON: None FINDINGS: Bones: No fracture. Joint Effusion: No significant joint effusion. There is a small amount of fluid at the proximal and distal carpal row. Articular Surfaces: No chondromalacia. Evaluation of the intrinsic wrist ligaments is limited in the absence of intra-articular contrast. Within that limitation, the following observations are made: Scapholunate Ligament: No tear seen. Lunotriquetral Ligament: No tear seen. TFC: No tear seen. Extensor Tendons: Small amount of fluid is noted about the 2nd extensor compartment tendons. The tendons themselves are intact. Flexor Tendons and Median Nerve: No tendinosis or tenosynovitis. Proximal to the carpal tunnel, there is a 1.0 x 0.7 x 0.7 cm lobulated T2 hyperintense structure in continuity with the median nerve which appears increased in signal at this site. This appears to be unrelated to the adjacent vasculature, however, exact delineation is somewhat limited. The contents of Guyon's canal are unremarkable. Postsurgical changes noted about the volar soft tissues at the level of the wrist. Other: There is increased intramuscular edema within the thenar musculature, particularly the opponents pollicis and abductor pollicis brevis. No muscle fatty atrophy. THIS IS AN ELECTRONICALLY VERIFIED FINAL REPORT 09/24/2019 9:40 AM - Electronically signed by Mali Ireland BG: Report ID: [id number] Reading Location: [place] [address] IMPRESSION: 1. 1 cm lobular hyperintense structure in continuity with the median nerve in the region of the surgical bed, proximal to the carpal tunnel. This is incompletely evaluated without the use IV contrast and prior imaging. Differential considerations include postoperative change versus complication. 2. Probable denervation intramuscular edema within the thenar musculature. 3. Small amount of fluid surrounding the 2nd extensor compartment, as seen with tenosynovitis. Chino Zaldivar [facility] MR ORDERABLES Final Resu lt documented in this encounter Visit Diagnoses Diagnosis Laceration of flexor muscle, fascia and tendon of right little finger at wrist and hand level, initial encounter documented in this encounter Additional Health Concerns Infection Onset Date Last Indicated Resolved Time COVID - 19 09/03/2019 09/04/2019 09/09/2019 11:2 5 AM CDT Assessment Noted Time PHQ-9 Depression Total Score: 0 03/25/19 10:00 AM WIG STYLIST documented as of this encounter Care Teams Neuro Intensivist Physician Relationship Specialty Start Date End Date Gayla Barker, CONSULTING GROUP ANALYST, AUTOMOTIVE SERVICE PORTER [address] [place] [address] PCP - General Advanced Practice Nurse 03/25/19 Ct, [facility] [place] [employer] [place] 09/03/19 documented as of this encounter
--- OUTSIDE RECORDS SUMMARY | 2024-02-24 19:46 | XMS_ITS | Encounter Summary ---
Author Organization [facility] Care Team Providers Care Raise Drill Operator Name Role Phone Gayla Barker PIPE BENDER, CANDY CUTTER MACHINE Primary Care Provider Ct, [facility] Home [facility] Unavailable Marianela vailable Encounter Details Date Type Department Care Team (Latest Contact Info) Description 10/22/2019 Travel Social History Tobacco Use Types Packs/Day [...] on file Legal Sex Female 10:27 AM SURGERY AID Gender Identity Not on file Sexual Orientation [...] Total Score: 0 03/25/19 20 10:00 AM SURGERY AID documented as of this encounter Care Teams Raise Drill Operator Relationship Specialty Start Date End Date Gayla Barker, PIPE BENDER, CANDY CUTTER MACHINE [address] [place] [address] PCP - General Advanced Practice Nurse 03/25/19 Ct, [facility] [place] [employer] [place] 09/03/19 documented as of this encounter
--- OUTSIDE RECORDS SUMMARY | 2024-02-24 19:46 | XMS_ITS | Encounter Summary ---
Author Organization [facility] Address [address] [place] [address] Phone Care Team Providers Care Sap Technical Developer Name Role Phone Gayla Barker APRN, TELEMARKETER Primary Care Provider Ct, [facility] Home [facility] Unavailable Marianela vailable Encounter Details Date Type Department Care Team (Latest Contact Info) Description 09/16/2019 1:29 PM CDT - 09/16/2019 11:59 PM CDT [facility] [address] [place] [address] Discharge Disposition: Discharged to home or Selfcare [...] on file Legal Sex Female 10:27 AM PHOTOGRAMMETRIC TECH Gender Identity Not on file Sexual [...] needed for Anxiety. 30 Tab 09/05/2019 0 ergocalciferol (VITAMIN D) 39512 UNIT Capsule TAKE 1 CAPSULE BY MOUTH ONE TIME PER WEEK 06/21/2019 0 Escitalopram Oxalate (LEXAPRO) 5 MG Tablet Take 5 mg by mouth daily. 0 ketorolac (TORADOL) 10 MG Tablet Take 10 mg by mouth every 4 hours as needed. 0 OMEPRAZOLE PO Take 20 mg by [...] Name Priority Date/Time Associated Diagnosis Comments XR REFERENCE IMAGES FOR IMAGE IMPORT Routine 09/16/2019 1:29 PM CDT documented in this encounter Results * XR REFERENCE IMAGES FOR IMAGE IMPORT (09/16/2019 1:29 PM CDT) us Not On File Provider IMG DIAGNOSTIC ORDERABLES F inal Result documented in this encounter Visit Diagnoses Not on filedocumented in this encounter Additional Health Concerns Assessment Noted Time PHQ-9 Depression Total Score: 0 01/28/20 20 10:00 AM PHOTOGRAMMETRIC TECH documented as of this encounter Care Teams Sap Technical Developer Relationship Specialty Start Date End Date Gayla Barker, EQUIPMENT OPERATOR WAREHOUSE, TELEMARKETER [address] [place] [address] PCP - General Advanced Practice Nurse 03/25/19 Ct, [facility] [place] [employer] [place] 09/03/19 documented as of this encounter
--- OUTSIDE RECORDS SUMMARY | 2024-02-24 19:46 | XMS_ITS | Encounter Summary ---
Author Organization [facility] Address [address] [facility] [place] [address] Phone Care Team Providers Care Operations Dispatcher Name Role Phone Gayla Barker APRN, HARSHA Primary Care Provider Ct, [facility] Unavailable Marianela vailable Reason for Visit * Reason Onset Date Comments COVID-19 10/19/2019 Results 10/19/2019 Encounter Details Date Type Department Care Team (Late st Contact Info) Description 10/19/2019 Telephone [facility] Digital Contact Center [address] [place] [phone] Gayla Barker APRN, OFFICE NURSE PRACTITIONER [address] [place] [address] COVID-19; Results Social History Tobacco Use Types Packs/Day [...] on file Legal Sex Female 10:27 AM MED CARE 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 Yes 10/17/2019 9:02 PM CDT documented as of this encounter Miscellaneous Notes * Telephone Encounter - Gilmer Rivas RN - 10/19/2019 8:29 PM CDT SITUATION (caller perception/concerns): Results BACKGROUND (events leading up to call): Patient had COVID testing done yesterday ASSESSMENT: Denies new and worsening symptoms. Patient calling for her test results. RECOMMENDATION: informed patient the results are still in process. Informed patient the results could take 48-72 hours but she will be contacted. Patient agreed. Caller verbalized understanding of information given and denies further questions. Teach-back method utilized. documented in this encounter Plan of Treatment Not on file documented as of this encounter Visit Diagnoses Not on filedocumented in this encounter Additional Health Concerns Infection Onset Date Last Indicated Resolved Time COVID - 19 10/17/2019 10/18/2019 10/22/2019 3:33 PM CDT Assessment Noted Time PHQ-9 Depression Total Score: 0 03/25/19 20 10:00 AM MED CARE MANAGER documented as of this encounter Care Teams Operations Dispatcher Relationship Specialty Start Date End Date Gayla Barker, DIRECTOR OF SAFETY AND SECURITY, OFFICE NURSE PRACTITIONER [address] [place] [address] PCP - General Advanced Practice Nurse 03/25/19 Ct, [facility] [place] [facility] 09/03/19 documented as of this encounter
--- OUTSIDE RECORDS SUMMARY | 2024-02-24 19:46 | XMS_ITS | Encounter Summary ---
Author Organization [facility] Address [address] [place] [address] Phone Care Team Providers Care Juice Tester Name Role Phone Gayla Barker APRN, PENS AND PENCILS DIPPER Primary Care Provider Ct, Acute [facility] Home [facility] Unavailable Marianela vailable Reason for Visit * Reason Onset Date Comments Medication Refill 09/02/2019 Encounter Details Date Type Department Care Team (Late st Contact Info) Description 09/02/2019 [facility] [address] [place] [address] Gayla Barker, ANNIE, PENS AND PENCILS DIPPER [address] [place] [address] Medication Refill Social History Tobacco Use Types [...] file Legal Sex Female 10:27 AM ARCHITECTURE DEPARTMENT CHAIR Gender Identity Not on file Sexual Orientation Not on file COVID-19 Exposure Response Date Recorded In the last month, have you been in contact with someone who was confirmed or suspected to have Coronavirus / COVID-19? Yes 09/03/2019 7:37 PM CDT documented as of this encounter Miscellaneous Notes * Telephone Encounter - Gayla Barker APN, CNP - 09/05/2019 3:15 PM CDT [place] prescription monitoring site reviewed. Medication approved. * Telephone Encounter - Sara Wasserman, RN - 09/02/2019 4:10 PM CDT Patient is looking for her refill of alprazolam. Please advise documented in this encounter Plan of Treatment Not on file documented as of this encounter Visit Diagnoses Not on filedocumented in this encounter Additional Health Concerns Infection Onset Date Last Indicated Resolved Time COVID - 19 09/03/2019 09/04/2019 09/09/2019 11:2 5 AM CDT Assessment Noted Time PHQ-9 Depression Total Score: 0 03/25/19 10:00 AM ARCHITECTURE DEPARTMENT CHAIR documented as of this encounter Care Teams Juice Tester Relationship Specialty Start Date End Date Gayla Barker APRN, CNP [address] [place] [address] PCP - General Advanced Practice Nurse 03/25/19 Ct, [facility] [place] [facility] 09/03/19 documented as of this encounter
--- OUTSIDE RECORDS SUMMARY | 2024-02-24 19:46 | XMS_ITS | Encounter Summary ---
Author Organization [facility] Address [address] [place] [address] Phone Care Team Providers Care Final Expense Agent Name Role Phone Gayla Barker APRN, OFFICIAL COURT REPORTER Primary Care Provider Reason for Visit * Reason Onset Date Comments ED Follow-up 08/31/2019 Urine Culture Re sults Encounter Details Date Type Department Care Team (Late st Contact Info) Description 08/31/2019 Telephone [facility] Emergency [address] [place] [id number] Remedios Valenzuela, RN [place] ED Follow-up (Urine Culture Results) Social History Tobacco Use Types Packs/Day Years [...] on file Legal Sex Female 10:27 AM SLAGGER Gender Identity Not on file Sexual Orientation Not on file COVID-19 Exposure Response Date Recorded In the last month, have you been in contact with someone who was confirmed or suspected to have Coronavirus / COVID-19? No / Unsure 08/28/2019 7:57 PM CDT documented as of this encounter Miscellaneous Notes * Telephone Encounter - Remedios Stevenson RN - 08/31/2019 3:19 PM CDT Urine culture results reviewed by TSERING [place]. Written order given for pt to be started on Amoxil 500 mg PO TID x 7 days. Contacted pt regarding urine culture results and new RX. Pt educated on intended effects and side effects of medication and verbalized understanding, able to provide teach back of education. Rx e-scribed to pt's preferred pharmacy. documented in this encounter Plan of Treatment Not on file documented as of this encounter Visit Diagnoses Not on filedocumented in this encounter Additional Health Concerns Assessment Noted Time PHQ-9 Depression Total Score: 0 03/25/19 10:00 AM SLAGGER documented as of this encounter Care Teams Final Expense Agent Relationship Specialty Start Date End Date Gayla Barker, SENIOR CORE JAVA DEVELOPER, OFFICIAL COURT REPORTER [address] [place] [address] PCP - General Advanced Practice Nurse 03/25/19 documented as of this encounter
--- OUTSIDE RECORDS SUMMARY | 2024-02-24 19:46 | XMS_ITS | Encounter Summary ---
Author Organization [facility] Address [address] [facility] [place] [address] Phone Care Team Providers Care Supervisor Chassis Assembly Name Role Phone Gayla Barker APRN, VICE CHAIR Primary Care Provider Ct, Acute Cov[facility] Home [facility] Unavailable Marianela vailable Encounter Details Date Type Department Care Team ([facility] Contact Info) Description 10/20/2019 Telephone [facility] Digital Contact Center [address] [place] [address] Gayla Barker, ANNIE, VICE CHAIR [address] [place] [address] Social History Tobacco Use Types [...] file Legal Sex Female 10:27 AM CORE ANALYSIS OPERATOR Gender Identity Not on file Sexual Orientation Not on file COVID-19 Exposure Response Date Recorded In the last month, have you been in contact with someone who was confirmed or suspected to have Coronavirus / COVID-19? Yes 10/17/2019 9:02 PM CDT documented as of this encounter Miscellaneous Notes * Telephone Encounter - Katie Ambrocio RN - 10/20/2019 3:23 PM CDT Results have already been given to patient today. * Telephone Encounter - Thor Chang PTA - 10/20/2019 2:30 PM CDT Patient called as she needs to know the results of her COVID test to allow her to have infusions tomorrow. Patient requested that provider release results if able today. Sent information to lead nurse. Also recommended patient call primary PCP as they might also be able to released results. documented in this encounter Plan of Treatment Not on file documented as of this encounter Visit Diagnoses Not on filedocumented in this encounter Additional Health Concerns Infection Onset Date Last Indicated Resolved Time COVID - 19 10/17/2019 10/18/2019 10/22/2019 3:33 PM CDT Assessment Noted Time PHQ-9 Depression Total Score: 0 03/25/19 10:00 AM CORE ANALYSIS OPERATOR documented as of this encounter Care Teams Supervisor Chassis Assembly Relationship Specialty Start Date End Date Gayla Barker, FRANCHISE SALES MANAGER, VICE CHAIR [address] [place] [address] PCP - General Advanced Practice Nurse 03/25/19 Ct, [facility] [place] [facility] 09/03/19 documented as of this encounter
--- OUTSIDE RECORDS SUMMARY | 2024-02-24 19:46 | XMS_ITS | Encounter Summary ---
Author Organization [facility] Address [address] [facility] [place] [address] Phone Care Team Providers Care Custom Shoe Designer And Maker Name Role Phone Gayla Barker APRN, INSPECTOR GOVERNMENT PROPERTY Primary Care Provider Ct, Acute [facility] Home [facility] Unavailable Marianela vailable Brian Mon MD Primary Care Provider [phone] Reason for Visit * Reason Onset Date Comments COVID-19 09/03/2019 Encounter Details Date Type Department Care Team (Late st Contact Info) Description 09/03/2019 Nurse Triage [facility] Digital Contact Center [address] [place] [phone] Gayla Barker APRN, INSPECTOR GOVERNMENT PROPERTY [address] [place] [address] COVID-19 Social History Tobacco Use Types Packs/Day [...] on file Legal Sex 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 Yes 09/03/2019 7:37 PM CDT documented as of this encounter Miscellaneous Notes * Telephone Encounter - Malu Triplett RN - 09/03/2019 7:36 PM CDT Images from the original note were not included. Travel Screening Question Response Do you have any of the following symptoms? Cough;Shortness of breath;Muscle pain;Diarrhea;Fever In the last month, have you been in contact with someone who was confirmed or suspected to have Coronavirus / COVID-19? Yes Have you traveled internationally in the last month? No Travel History Travel since 08/04/19 No documented travel since 08/04/19 Patients whose symptoms require immediate emergency assistance [...] further on next steps. Did patient refuse traffic manager? no. ??? If patient refuses to speak to a nurse: Please continue to monitor your symptoms and if they get worse, do not hesitate to call us back. We are here 18/09. We recommend you refer to the CDC website regarding guidelines for self- isolation and thank you for calling. Malu Triplett RN Travel Screening Question Response Do you have any of the following symptoms? Cough;Shortness of breath;Muscle pain;Diarrhea;Fever In the last month, have you been in contact with someone who was confirmed or suspected to have Coronavirus / COVID-19? Yes Have you traveled internationally in the last month? No Travel History Travel since 08/04/19 No documented travel since 08/04/19 COVID-19 Testing Priority for Carito Rausch: 2 Nurse to triage SITUATION: Patient calling with sxs and questions. She states coworker who tested positive sat at her desk. BACKGROUND: pt has been tested (more than once) and it keeps coming back negative and is worried.Sounds very anxious. ASSESSMENT: Symptom Description / Location: cough, mild sob, pain, nausea, Pain (0-10): headache couple of days ago--but has gone, chest and back pain Temp: 100 today--started today Treatment / Response: excedrin, robitussin, mucinex, martir, flonase RECOMMENDATION: See care advice and disposition for [...] ask them to send a request via [employer] to their provider (you may need to activate a [employer] account with them). You may also route [...] <100) Protocols used: CORONAVIRUS (COVID-19) DIAGNOSED OR [id number] documented in this encounter Plan of Treatment Not on file documented as of this encounter Visit Diagnoses Not on filedocumented in this encounter Additional Health Concerns Infection Onset Date Last Indicated Resolved Time COVID - 19 09/03/2019 09/04/2019 09/09/2019 11:2 5 AM CDT COVID - 19 09/28/2019 09/30/2019 09/29/2019 3:10 PM CDT COVID - 19 10/01/2019 10/01/2019 10/04/2019 2:42 AM CDT COVID - 19 10/17/2019 10/18/2019 10/22/2019 3:33 PM CDT COVID - 11/13/2019 11/13/2019 11/16/2019 12:0 8 AM CDT COVID - 19 11/25/2019 12/09/2019 12/11/2019 7:53 AM CDT COVID - 19 12/25/2019 12/26/2019 12/28/2019 6:29 AM TEACHER OF THE DEAF COVID - 19 01/16/2020 01/17/2020 01/23/2020 12:5 2 PM TEACHER OF THE DEAF COVID - 19 03/18/2020 03/18/2020 03/19/2020 6:44 AM TEACHER OF THE DEAF COVID - 19 12/06/2020 12/06/2020 12/26/2020 12:1 6 AM CDT COVID - 19 03/05/2021 03/05/2021 03/05/2021 6:11 PM TEACHER OF THE DEAF COVID - 19 Confirmed 03/05/2021 03/05/2021 022 12:16 AM TEACHER OF THE DEAF COVID - 19 11/14/2021 11/18/2021 11/28/2021 12:1 6 AM CDT COVID - 19 01/08/2022 01/08/2022 01/18/2022 12:1 6 AM TEACHER OF THE DEAF COVID - 19 04/25/2022 04/25/2022 05/05/2022 12:1 6 AM TEACHER OF THE DEAF COVID - 19 10/17/2023 10/17/2023 10/17/2023 1:56 PM CDT Assessment Noted Time PHQ-9 Depression Total Score: 0 03/25/19 10:00 AM TEACHER OF THE DEAF documented as of this encounter Care Teams Custom Shoe Designer And Maker Relationship Specialty Start Date End Date Gayla Barker APRN, INSPECTOR GOVERNMENT PROPERTY [address] [place] [address] PCP - General Advanced Practice Nurse 03/25/19 Brian Mon MD [address] [place] [address] PCP - General Internal Medicine 10/17/23 Ct, [facility] [place] [facility] 09/03/19 documented as of this encounter
--- OUTSIDE RECORDS SUMMARY | 2024-02-24 19:46 | XMS_ITS | Encounter Summary ---
Author Organization [facility] Address [address] [facility] 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 Yes 10/17/2019 9:02 PM CDT documented as of this encounter Miscellaneous Notes * Telephone Encounter - Malu Triplett RN - 10/17/2019 9:01 PM CDT Images from the original note were not included. Travel Screening Question Response In the last month, have you been in contact with someone who was confirmed or suspected to have Coronavirus / COVID-19? Yes Do you have any of the following symptoms? Chills;Muscle pain;Loss of smell;Loss of taste;Diarrhea;Vomiting;Severe headache;Weakness;Fever Have you traveled internationally in the last month? No Travel History Travel since 09/16/19 No documented travel since 09/16/19 Patients whose symptoms require immediate emergency assistance [...] further on next steps. Did patient refuse physical sciences professor? no. ??? If patient refuses to speak [...] suspected to have Coronavirus / COVID-19? Yes Do you have any of the following symptoms? Chills;Muscle pain;Loss of smell;Loss of taste;Diarrhea;Vomiting;Severe headache;Weakness;Fever Have you traveled internationally in the last month? No Travel History Travel since 09/16/19 No documented travel since 09/16/19 COVID-19 Testing Priority for Carito Ivory Shalom: 2 Nurse to triage SITUATION: Patient calling with sxs and positive exposure BACKGROUND: pt with family member who has found out today they are positive pt states she starts chemo on Sunday for lupus, pt states she takes prednisone daily (for 2 years) ASSESSMENT: Symptom Description / Location: sxs started 3 days ago but have gotten worse, pt states she has vomited over the past few days, is able to keep water down Pain (0-10): bad headache and face hurts Temp: chills and feels feverish, 99,8 recently Treatment / Response: excederin, abel seltzer, mylanta, tylenol RECOMMENDATION: See care advice and disposition [...] ask them to send a request via [employer] to their provider (you may need to activate a [employer] account with them). You may also route an excuse note request to the provider. Inform the patient that the provider will determine if a note will be sent and let them know that a telephone visit may be required. Caller verbalizes understanding of the above information. Malu Triplett RN Reason for Disposition ? ? HIGH RISK patient (e.g., age > 64 years, diabetes, heart or lung disease, weak immune system) Protocols used: CORONAVIRUS (COVID-19) DIAGNOSED OR [id number] documented in this encounter Plan of Treatment [...] 7:53 AM CDT COVID - 19 12/25/2019 12/26/201912/28/2019 6:29 AM SHAPING MACHINE TENDER COVID - 19 01/16/2020 01/17/2020 01/23/2020 12:5 2 PM SHAPING MACHINE TENDER COVID - 19 03/18/2020 03/18/2020 03/19/2020 6:44 AM SHAPING MACHINE TENDER COVID - 19 12/06/2020 12/06/2020 12/26/2020 12:1 6 AM CDT COVID - 19 03/05/2021 03/05/2021 03/05/2021 6:11 PM SHAPING MACHINE TENDER COVID - 19 Confirmed 03/05/2021 03/05/2021 022 12:16 AM SHAPING MACHINE TENDER COVID - 19 11/14/2021 11/18/2021 11/28/2021 12:1 6 AM CDT COVID - 19 01/08/2022 01/08/2022 01/18/2022 12:1 6 AM SHAPING MACHINE TENDER COVID - 19 04/25/2022 04/25/2022 05/05/2022 12:1 6 AM SHAPING MACHINE TENDER COVID - 19 10/17/2023 10/17/2023 10/17/2023 1:56 PM CDT Assessment Noted Time PHQ-9 Depression Total Score: 0 03/25/19 10:00 AM SHAPING MACHINE TENDER documented as of this encounter Care Teams Senior Backup Administrator Relationship Specialty Start Date End Date Gayla Barker, COMMODITY MANAGER, CARRIER ASSOCIATE [address] [place] [address] PCP - General Advanced Practice Nurse 03/25/19 Brian Mon MD [address] [place] [address] PCP - General Internal Medicine 10/17/23 Ct, [facility] [place] [facility] 09/03/19 documented as of this encounter
--- OUTSIDE RECORDS SUMMARY | 2024-02-24 19:46 | XMS_ITS | Encounter Summary ---
Author Organization [facility] Address [address] [place] [address] Phone Care Team Providers Care Semiconductor Technician Name Role Phone Gayla Barker APRN, SMOKEHOUSE OPERATOR Primary Care Provider Ct, Acute Covid At Home Care Unavailable Marianela vailable Reason for Visit * Reason Comments Cough Encounter Details Date Type Department Care Team (Late st Contact Info) Description 09/04/2019 3:00 PM CDT Clinical Support [facility] [address] [place] [address] Testing, [facility] Nurse PA Cough; Shortness of breath; Fever, unspecified fever cause [...] on file Legal Sex Female 10:27 AM ROLL OVER PRESS OPERATOR Gender Identity Not on file Sexual Orientation Not on file COVID-19 Exposure Response Date Recorded In the last month, have you been in contact with someone who was confirmed or suspected to have Coronavirus / COVID-19? Yes 09/03/2019 7:37 PM CDT documented as of this encounter Progress Notes * Katharina Briceno RN - 09/04/2019 3:00 PM CDT [facility]. Patient was instructed to stay in the vehicle for testing. Donned appropriate PPE for collection of specimen. Nasopharyngeal specimen collected, patient tolerated well. BELLO Martínez assisted with the collection process. Patient education provided on pre-procedural self-quarantine instructions. documented in this encounter Plan of Treatment Not on file documented as of this encounter Procedures Procedure Name Priority Date/Time Associated Diagnosis Comments COVID19 BY STRATEGIC SOURCING SPECIALIST/PCR (NON INTERFACED LAB) Routine 09/04/2019 2:33 PM CDT Cough Shortness of breath Fever, unspecified fever cause SARS-COV-2 BY MOLECULAR Routine 09/04/2019 2:33 PM CDT Cough Shortness of breath Fever, unspecified fever cause documented in this encounter Results * COVID19 BY STRATEGIC SOURCING SPECIALIST/PCR (NON INTERFACED LAB) (09/04/2019 2:33 PM CDT) Pathologist [facility] COVID-19 night patrol inspector-PCR (NON INTERFACED) NOT DETECTED - See Scanned Report Not Detected 09/07/2019 1:45 PM CDT [facility] Swab NASOPHARYNGEAL STRUCTURE / Unknown Non-Phlebotomy Collection / Unknown 09/04/2019 2:33 PM CDT 09/04/2019 2:33 PM CDT us Sofia Arguello APRN, CNP LAB SEND OUTS Final R esult [facility] [address] [place] [address] * SARS-COV-2 BY PCR (09/04/2019 2:33 PM CDT) Pathologist [facility] [id number] Sent to Non Interfaced Lab. See COVID-19 by night patrol inspector-PCR, Non Interfaced Lab for results. (Referenc e Range for this test is Not Detected) 09/07/2019 1:45 PM CDT NON-INTERFACED REFERENCE LABORATORIES Swab NASOPHARYNGEAL STRUCTURE / Unknown Non-Phlebotomy Collection / Unknown 09/04/2019 2:33 PM CDT 09/04/2019 2:33 PM CDT Sofia Arguello APRN, CNP MICROBIOLOGY - GENERAL ORDERABLES Final Result NON-INTERFACED REFERENCE LABORATORIES documented in this encounter Visit Diagnoses Diagnosis Cough Shortness of breath Fever, unspecified fever cause documented in this encounter Additional Health Concerns Infection Onset Date Last Indicated Resolved Time COVID - 19 09/03/2019 09/04/2019 09/09/2019 11:2 5 AM CDT Assessment Noted Time PHQ-9 Depression Total Score: 0 03/25/19 20 10:00 AM ROLL OVER PRESS OPERATOR documented as of this encounter Care Teams Semiconductor Technician Relationship Specialty Start Date End Date Gayla Barker, ANNIE, HARSHA [address] [place] [address] PCP - General Advanced Practice Nurse 03/25/19 Ct, [facility] [place] [facility] 09/03/19 documented as of this encounter
--- OUTSIDE RECORDS SUMMARY | 2024-02-24 19:46 | XMS_ITS | Encounter Summary ---
Author Organization [facility] Address [address] [place] [address] Phone Care Team Providers Care Brand Ambassador Promotional Model Name Role Phone Gayla Barker APRN, CNP Primary Care Provider Ct, [facility] Unavailable Marianela vailable Reason for Visit * Reason Onset Date Comments Results 10/28/2019 Encounter Details Date Type Department Care Team (Late st Contact Info) Description 10/28/2019 Telephone [facility] - Primary Care - [place] [address] [place] [address] Gayla Barker APRN, CNP [address] [place] [address] Results Social History Tobacco Use [...] on file Legal Sex Female 10:27 AM 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 No / Unsure 10/22/2019 7:58 AM CDT documented as of this encounter Miscellaneous Notes * Telephone Encounter - Gayla Barker APN, CNP - 10/28/2019 10:35 AM CDT Order signed. * Telephone Encounter - Leti Gusman RN - 10/28/2019 9:24 AM CDT Phoned patient with lab results. Patient aware - states her building coordinator has already ordered further testing for her. Also she had a Diflucan 200 mg tab at home and is going to take that for the bruce. Ferrous sulfate and stool softner orders pended for chart, patient will take over the counter. * Telephone Encounter - Leti Gusman RN - 10/28/2019 9:22 AM CDT ----- Message from Gayla Barker APN, CNP sent at 10/28/2019 7:50 AM CDT ----- Vaginitis screen showed Bruce. Recommend Diflucan 150 mg x1. ACTH was low. This has to do with the adrenal gland and I believe it is probably has to do with being on the prednisone. But would like to send to Endocrinology. Iron was low recommend ferrous sulfate 325 daily with a stool softener. Glucose elevated at 110 decrease sweets and carbohydrates. documented in this encounter Plan of Treatment Not on file documented as of this encounter Visit Diagnoses Not on filedocumented in this encounter Additional Health Concerns Assessment Noted Time PHQ-9 Depression Total Score: 0 03/25/19 20 10:00 AM LADLE WATCHER documented as of this encounter Care Teams Brand Ambassador Promotional Model Relationship Specialty Start Date End Date Gayla Barker APRN, CNP [address] [place] [address] PCP - General Advanced Practice Nurse 03/25/19 Ct, [facility] [place] [employer] [place] 09/03/19 documented as of this encounter
--- OUTSIDE RECORDS SUMMARY | 2024-02-24 19:46 | XMS_ITS | Encounter Summary ---
Author Organization [facility] Address [address] [place] [address] Phone Care Team Providers Care Back Roll Lathe Operator Name Role Phone Gayla Barker APRN, CARDING MACHINE OPERATOR Primary Care Provider Reason for Visit * Reason Onset Date Comments ED Follow-up 08/31/2019 nausea/vomiting Encounter Details Date Type Department Care Team (Late st Contact Info) Description 08/31/2019 Telephone 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 No / Unsure 08/28/2019 7:57 PM CDT documented as of this encounter Miscellaneous Notes * Telephone Encounter - Ezra Aguiar RN - 08/31/2019 10:11 PM CDT PT states nausea and vomiting after taking antibiotic. Discussed with ERP. Solitario sent to pharmacy. documented in this encounter Plan of Treatment Not on file documented as of this encounter Visit Diagnoses Not on filedocumented in this encounter Additional Health Concerns Assessment Noted Time PHQ-9 Depression Total Score: 0 03/25/19 10:00 AM GROUP FITNESS DEPARTMENT HEAD documented as of this encounter Care Teams Back Roll Lathe Operator Relationship Specialty Start Date End Date Gayla Barker, HORSE BUYER, CARDING MACHINE OPERATOR [address] [place] [address] PCP - General Advanced Practice Nurse 03/25/19 documented as of this encounter
--- OUTSIDE RECORDS SUMMARY | 2024-02-24 19:46 | XMS_ITS | Encounter Summary ---
Author Organization [facility] Address [address] [place] [address] Phone Care Team Providers Care Meter Changes Records Clerk Name Role Phone Gayla Barker APRN, SAIL MAKER Primary Care Provider Ct, [facility] Home [facility] Unavailable Marianela vailable Encounter Details Date Type Department Care Team (Latest Contact Info) Description 09/18/2019 [facility] Ad[facility] [address] [place] [address] Provider, Not On File [place] [...] on file Legal Sex Female 10:27 AM UNIFORM CAP OPERATOR Gender Identity Not on file Sexual [...] Total Score: 0 03/25/19 20 10:00 AM UNIFORM CAP OPERATOR documented as of this encounter Care Teams Meter Changes Records Clerk Relationship Specialty Start Date End Date Gayla Barker, RESIDENT ATHLETIC TRAINER, SAIL MAKER [address] [place] [address] PCP - General Advanced Practice Nurse 03/25/19 Ct, [facility] [place] [employer] [place] 09/03/19 documented as of this encounter
--- OUTSIDE RECORDS SUMMARY | 2024-02-24 19:46 | XMS_ITS | Encounter Summary ---
Author Organization [facility] Care Team Providers Care Laundry Aide Name Role Phone Gayla Barker PHOTO JOURNALIST, ELASTIC YARN TWISTER Primary Care Provider Ct, Acute Covid At Home Care Unavailable Marianela vailable Encounter Details Date Type Department Care Team (Latest Contact Info) Description 09/03/2019 Travel Social History Tobacco Use Types Packs/Day [...] on file Legal Sex Female 10:27 AM FOOTWEAR SALES COORDINATOR Gender Identity Not on file Sexual [...] Total Score: 0 03/25/19 20 10:00 AM FOOTWEAR SALES COORDINATOR documented as of this encounter Care Teams Laundry Aide Relationship Specialty Start Date End Date Gayla Barker, PHOTO JOURNALIST, ELASTIC YARN TWISTER [address] [place] [address] PCP - General Advanced Practice Nurse 03/25/19 Ct, [facility] [place] 09/03/19 documented as of this encounter
--- OUTSIDE RECORDS SUMMARY | 2024-02-24 19:46 | XMS_ITS | Encounter Summary ---
Author Organization [facility] Address [address] [facility] [place] [address] Phone Care Team Providers Care Clerical Investigator Name Role Phone Gayla Barker APRN, COOLER SUPERVISOR Primary Care Provider Ct, Acute [facility] Home [facility] Unavailable Marianela vailable Reason for Visit * Reason Onset Date Comments Follow-up 10/20/2019 Encounter Details Date Type Department Care Team (Late st Contact Info) Description 10/20/2019 Telephone [facility] Call Center [address] [place] [address] Gayla Barker, ANNIE, COOLER SUPERVISOR [address] [place] [address] Follow-up Social History Tobacco Use Types Packs/Day [...] on file Legal Sex Female 10:27 AM 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 Yes 10/17/2019 9:02 PM CDT documented as of this encounter Miscellaneous Notes * Telephone Encounter - Cassandra Carbajal RN - 10/20/2019 2:39 PM CDT Patient notified. Verbalizes understanding Attempt to schedule follow up appointment but call was disconnected Called patient back, appointment made for 10/27/19 Offered to schedule sooner appointment but patient declined due to transportation * Telephone Encounter - Gayla Barker APN, COOLER SUPERVISOR - 10/20/2019 11:58 AM CDT Carito needs to either go to [facility] or see 1 of the providers in the office if she is havingurinary tract symptoms. She goes to the ER and [facility] frequently for various symptoms. She hasbeen tested for COVID I would say probably about 12 times. To my knowledge they have all been negative. She has had a GI consult and that was also negative and her workup. She does call my office frequently about various things and have constant in basket message is from an about her. She is very hard to manage from primary care aspect because she is all over the place about various symptoms. * Telephone Encounter - Brian Mon MD - 10/20/2019 11:57 AM CDT This is not my patient but, from what I can see, she does call this office on a regular basis aboutvarious things. She has not specifically called about urinary tract infections in recent weeks. Shehas been tested for COVID-19 at least 6 times in the past 3 months (all negative). Her current testis pending. I would say that she can proceed with infusions if her test result comes back negative. * Telephone Encounter - Maxine Almanza RN - 10/20/2019 11:20 AM CDT Nallely from Dr. Bee is her net maker. She treats her for Lupus. She calls them often, and calls the bone char operator MD's. She calls about things that she should be calling her primary for. She demands to speak to the MD, and calls after hours and not lupus related. She has been having diarrhea for several months. She has been seen by GI per the patient. Did you send her to a GI MD. She said that she was told to call her net maker. She called yesterday for UTI symptoms. The bone char operator md ordered a UA and a CBC She was instructed to call her primary care coordinator whe she has these symptoms and not them. She never called us about UTI symptoms, she called about covid test results. covid testing is still in process. They are trying to find out if the patient is calling us about her UTI and other symptoms? She is constanting calling. She will go to the ER or [facility]. She is calling the bone char operator doctors, at all times of day and night. She is trying to use them as her primary MD. She told her she went to a [facility] and gave and had a UA and she told her she doesn't have a UTI. Her stories are constantly changing. She said they are having a hard time connecting the dots. She was calling about the treatments she is suppose to have. She has been told that she can not come in until her covid test results are negative. She is putting off infusions. She is all over the place. She said they are going to have to get management involved, so that the patient understands she is to call them about her lupus and her primary about all of her other concerns. She wants to make sureshe is calling us? She calls in the middle of the night asking for questions. She asked that we follow up with her. She has abdominal pain, nausea, vomiting, urinary pain is what she complained of yesterday. She was referred to a new neurology MD by them as she told them they have a language barrier, she refused the referral when they called her. She did have an MRI from them also. She is suppose to have an infusion at noon tomorrow. But if she is having symptoms, they may not dothe infusion due to her symptoms. They will probably put it off. How do you want to proceed with this patient. ? documented in this encounter Plan of Treatment Not on file documented as of this encounter Visit Diagnoses Not on filedocumented in this encounter Additional Health Concerns Infection Onset Date Last Indicated Resolved Time COVID - 19 10/17/2019 10/18/2019 10/22/2019 3:33 PM CDT Assessment Noted Time PHQ-9 Depression Total Score: 0 03/25/19 10:00 AM LINEN CLERK documented as of this encounter Care Teams Clerical Investigator Relationship Specialty Start Date End Date Gayla Barker, STEEL WELDER, COOLER SUPERVISOR [address] [place] [address] PCP - General Advanced Practice Nurse 03/25/19 Ct, [facility] [place] [employer] [place] 09/03/19 documented as of this encounter
--- OUTSIDE RECORDS SUMMARY | 2024-02-24 19:46 | XMS_ITS | Encounter Summary ---
Author Organization [facility] Address [address] [facility] [place] [address] Phone Care Team Providers Care Patternmaker Metal Name Role Phone Gayla Barker APRN, HARSHA Primary Care Provider Ct, Acute [facility] Home [facility] Unavailable Marianela vailable Reason for Visit * Reason Onset Date Comments Anxiety 10/16/2019 Medication Management 10/16/2019 refill for xanax. Encounter Details Date Type Department Care Team (Late st Contact Info) Description 10/16/2019 Nurse Triage [facility] Call Center [address] [place] [address] Gayla Barker APRN, MONOTYPE OPERATOR [address] [place] [address] Anxiety; Medication Management (refill for xanax. 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 No / Unsure 10/16/2019 6:34 PM CDT documented as of this encounter Miscellaneous Notes * Telephone Encounter - Ludivnia Parson RN - 10/16/2019 6:28 PM CDT SITUATION (caller perception/concerns): Patient is calling about anxiety and medication changes, David got 15 tabs on 10/07/19 and I take it up to 3 times a day - usually twice . Patient wants message sent to PCP BACKGROUND (events leading up to call): Patient stated she has tried several other medications. ASSESSMENT: RN offered triage and patient stated she does not want to triage but only to send a message to the office. RECOMMENDATION: RN sent message to PCP See care advice and disposition for guideline. First positive answer recorded; all responses to prior questions were negative. If symptoms increase, change, or if new symptoms develop, call your HCP or call back. Recommendation based on caller information and is not a diagnosis. Verified and reviewed all triage information with caller. Caller verbalized understanding of information given and denies further questions. Teach-back method utilized. Reason for Disposition ??? [1] Started on anti-anxiety medication AND [2] no relief Protocols used: ANXIETY AND PANIC ATTACK-A-AH documented in this encounter Plan of Treatment Not on file documented as of this encounter Visit Diagnoses Not on filedocumented in this encounter Additional Health Concerns Assessment Noted Time PHQ-9 Depression Total Score: 0 03/25/19 10:00 AM PROMOTIONAL MARKETING ANALYST documented as of this encounter Care Teams Patternmaker Metal Relationship Specialty Start Date End Date Gayla Barker, COIL WINDER, MONOTYPE OPERATOR [address] [place] [address] PCP - General Advanced Practice Nurse 03/25/19 Ct, [facility] [place] [employer] [place] 09/03/19 documented as of this encounter
--- OUTSIDE RECORDS SUMMARY | 2024-02-24 19:46 | XMS_ITS | Encounter Summary ---
Author Organization [facility] Address [address] 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 No / Unsure 08/28/2019 7:57 PM CDT documented as of this encounter Last Filed Vital Signs Vital Sign Reading Time Taken Comments Blood Pressure 128/81 08/29/2019 12:01 AM CDT Pulse 78 08/29/2019 12:01 AM CDT Temperature 36.1 ??C (97 ??F) 08/28/2019 7:57 PM CDT Respiratory Rate 16 08/29/2019 12:01 AM CDT Oxygen Saturation 99% 08/29/2019 12:01 AM CDT Inhaled Oxygen Concentration - - Weight 74.8 kg (165 lb) 08/28/2019 7:57 PM CDT Height 160 cm (5' 3 ) 08/28/2019 7:57 PM CDT Body Mass Index 29.23 08/28/2019 7:57 PM CDT documented in this encounter Discharge Instructions * Attachments The following attachments cannot be sent through Care Everywhere. * Abdominal Pain, Unknown Cause, (Female) ([place]orese) documented in this encounter Medications at Time of Discharge hydroxychloroqui ne (PLAQUENIL) 200 MG Tablet Take 1 Tab by mouth daily. 90 Tab 3 05/09/2019 albuterol 108 (90 Base) MCG/ACT Aerosol Solution take 2 Puffs by inhalation every 4 hours as needed for Cough (shortness of breath). 8.5 g 06/18/2019 0 ALPRAZolam (XANAX) 0.25 MG Tablet TAKE 1 TABLET BY MOUTH 3 TIMES DAILY NEEDED FOR ANXIETY 30 Tab 08/19/2019 0 ergocalciferol (VITAMIN D) 94575 UNIT Capsule TAKE 1 CAPSULE BY MOUTH ONE TIME PER WEEK 06/21/2019 0 Escitalopram Oxalate (LEXAPRO) 5 MG Tablet Take 5 mg by mouth daily. 0 ketorolac (TORADOL) 10 MG Tablet Take 10 mg by mouth every 4 hours as needed. 0 OMEPRAZOLE PO Take 20 mg by mouth. 1 predniSONE (DELTASONE) 10 MG Tablet Take 1 Tab by mouth daily. 90 Tab 3 07/25/2019 0 predniSONE (DELTASONE) 5 MG Tablet Take 1 Tab by mouth daily. 90 Tab 3 07/25/2019 0 documented as of this encounter ED Notes * Esau Parks RN - 08/29/2019 12:02 AM CDT Patient discharged. Discharge instructions and patient educational material reviewed with patient; questions and concerns addressed; patient verbalizes understanding, using teach back. Patient was given 0 prescriptions. Patient was informed of the need to follow up with PCP for ongoing care. Patient offered wheelchair and refused. Pt ambulatory to ER exit with a steady gait and self as responsible alliance party. SL D/C'ed with Ruperto cath intact. Pt alert and oriented x 4 with respirations that are even and unlabored at time of discharge. * Esau Parks RN - 08/28/2019 11:03 PM CDT Patient is resting in room with call light at bedside. Patient informed about wait time and verbalizes understanding. Patient denies needs at this time and verbalizes understanding that RN will complete hourly rounding. * Esau Parks RN - 08/28/2019 10:20 PM CDT PT in xray * Esau Parks RN - 08/28/2019 9:46 PM CDT Pt medicated per provider orders. Pt educated on intended effects and side effects of medication and verbalized understanding, able to provide teach back of education. * Esau Parks RN - 08/28/2019 8:58 PM CDT Pt resting on stretcher with call light within reach. Pt denies needs at this time * Dewey Dinero MD - 08/28/2019 8:53 PM CDT Images from the original note were not included. Chief Complaint Patient presents with ??? Flank Pain Patient is a 29-year-old female who presents emergency room with left-sided flank pain. Patient states she has been treated for Trichomonas and that any urinary tract infection approximately 2 weeks ago. She states those symptoms improved but then she began having pain in her left flank and lower abdomen over the past few days. States the pain is progressively getting worse. She denies any vomiting or diarrhea. She denies history of constipation. She denies any vaginal discharge. Denies any fever. No current facility-administered medications for this encounter. Current Outpatient Medications Medication Sig Dispense Refill ??? albuterol 108 (90 Base) MCG/ACT Aerosol Solution take 2 Puffs by inhalation every 4 hours as needed for Cough (shortness of breath). 8.5 g 0 ??? ALPRAZolam (XANAX) 0.25 MG Tablet TAKE 1 TABLET BY MOUTH 3 TIMES DAILY NEEDED FOR ANXIETY 30Tab 0 ??? ergocalciferol (VITAMIN D) 83695 UNIT Capsule TAKE 1 CAPSULE BY MOUTH [...] 20 mg by mouth. ??? predniSONE (DELTASONE) 10 MG Tablet Take [...] file Gets together: Not on file Attends anglican service: Not on file Active member of [...] History Narrative ??? Not on file BP 128/81 Pulse 85 Temp 97 ??F (36.1 ??C) (Tympanic) Resp 20 Ht 5' 3 (1.6 m) Wt 165 lb (74.8 kg) LMP 08/26/2019 SpO2 99% BMI 29.23 kg/m?? Review of Systems Constitutional: Negative for activity change, appetite change, chills and fever. HENT: Negative for congestion, ear pain, rhinorrhea, sore throat and trouble swallowing. Eyes: Negative for pain and visual disturbance. Respiratory: Negative for cough, shortness of breath and wheezing. Cardiovascular: Negative for chest pain. Gastrointestinal: Negative for abdominal pain, diarrhea, nausea and vomiting. Genitourinary: Positive for flank pain (Left). Negative for difficulty urinating, dysuria, frequency, hematuria, pelvic pain, urgency, vaginal bleeding, vaginal discharge and vaginal pain. Musculoskeletal: Negative for arthralgias and back pain. Skin: Negative for pallor. Neurological: Negative for headaches. Hematological: Negative for adenopathy. Psychiatric/Behavioral: Negative for confusion. All other systems [...] sounds. No wheezing or rales. Abdominal: General: Abdomen is flat. Bowel sounds are normal. There is no distension. Palpations: Abdomen is soft. There is no hepatomegaly or splenomegaly. Tenderness: There is abdominal tenderness in the left upper quadrant and left lower quadrant. Thereis left CVA tenderness. There is no right CVA tenderness, guarding or rebound. Musculoskeletal: Normal range of motion. Skin: General: Skin is warm and dry. Neurological: Mental Status: She is alert and oriented to person, place, and time. Cranial Nerves: No cranial nerve deficit. Procedures Imaging Results XR CHEST 2 VIEWS (Final result) Result time 08/28/19 23:30:50 Final result by Jackson Sanchez MD (08/28/19 23:30:50) Impression: IMPRESSION: No radiographic evidence of an acute cardiopulmonary process. Narrative: EXAM DESCRIPTION: XR CHEST 2 VIEWS REASON FOR STUDY: Chest discomfort and productive cough for 2 weeks TECHNIQUE: Frontal and Lateral radiographs of the chest were obtained. COMPARISON: 05/30/2019 FINDINGS: Cardiac silhouette is within normal limits in size. Trachea is midline. Lungs appear normally expanded. There is no evidence of consolidation, pneumothorax, or pleural effusion. THIS IS AN ELECTRONICALLY VERIFIED FINAL REPORT 08/28/2019 11:28 PM - Electronically signed by Jackson Sanchez M.D. AT: AT Report ID: [id number] Reading Location: [id number] CT ABDOMEN PELVIS W/ CONTRAST (Final result) Result time 08/28/19 23:26:46 Final result by Jackson Sanchez MD (08/28/19 23:26:46) Impression: IMPRESSION: 1. No evidence of small-bowel obstruction. 2. Status post appendectomy. 3. No evidence of hydronephrosis or obstructing renal calculus. 4. There is prominence of the cervix. Correlation with physical examination is recommended. No free pelvic fluid. Remainder of the uterus and the ovaries appear unremarkable. Narrative: EXAM DESCRIPTION: CT ABDOMEN PELVIS W/ CONTRAST REASON FOR STUDY: Right flank and lower abdominal pain for 2 weeks TECHNIQUE: CT scan of the abdomen and pelvis performed with intravenous and without oral contrast using helical scanning technique with dynamic intravenous contrast injection. Reconstructed coronal and sagittal MPR images reviewed. All images stored on PACS. Automated exposure control was used as a dose optimization technique for this examination. CONTRAST TYPE/DOSE: 83 mL of Isovue 370 injected via right forearm COMPARISON: None available FINDINGS: LOWER CHEST: Imaged lung bases appear clear. LIVER: Small enhancing mass within the right hepatic lobe measures 0.7 cm in size on axial image 17. Given patient age this likely relates to a nonaggressive etiology such as a flash filling hemangioma. GALLBLADDER: Mildly distended with fluid, otherwise unremarkable. BILE DUCTS: No intrahepatic or extrahepatic ductal dilatation. SPLEEN: Normal size. No focal lesions. PANCREAS: There is no evidence of a pancreatic mass or significant peripancreatic inflammation. ADRENALS: Normal. KIDNEYS/URINARY TRACT: No abnormally enhancing renal mass is identified. There is no evidence of hydronephrosis. No abnormally enhancing renal mass is identified. There is no evidence of an obstructing calculus. Bladder is mildly distended with fluid, otherwise unremarkable. GI: Postoperative changes of prior appendectomy are noted. There is no evidence of small-bowel obstruction. Fat containing umbilical hernia is present. PERITONEUM: No ascites or free air. RETROPERITONEUM: No mass or adenopathy. REPRODUCTIVE: No significant abnormality. VASCULATURE: Aorta demonstrates normal course and caliber. There is no abdominal aortic aneurysm. MUSCULOSKELETAL: No significant abnormality. OTHER: No other abnormality. THIS IS AN ELECTRONICALLY VERIFIED FINAL REPORT 08/28/2019 11:24 PM - Electronically signed by Jackson Sanchez M.D. AT: AT Report ID: [id number] Reading Location: [address] Number of Diagnoses or Management Options Amount and/or Complexity of Data Reviewed Clinical lab tests: ordered and reviewed Tests in the radiology section of CPT??: ordered and reviewed Tests in the medicine section of CPT??: ordered and reviewed Decide to obtain previous medical records or to obtain history from someone other than the patient:yes Review and summarize past medical records: yes Independent visualization of images, tracings, or specimens: yes Risk of Complications, Morbidity, and/or Mortality Presenting problems: moderate Diagnostic procedures: moderate Management options: moderate Patient Progress Patient progress: stable Reviewed: previous chart, nursing note and vitals Interpretation: labs and CT scan Clinical Impression 1. Acute bilateral flank pain Patient presents with bilateral flank pain. Labs were obtained but came back unremarkable. Urine shows a few white cells but not a significant number. I discussed this to the patient she chooses to wait until the culture comes back. Chest x-rays obtained because the patient states she had a cough. This was unremarkable. CT scan of the abdomen and pelvis was done and revealed no acute findings. There was some question about prominence of the cervix. I explained this to the patient and she will follow-up with her drafting technician regarding this finding. She will be discharged home. She has appointment coming up soon with her regular doctor for recheck. * Esau Parks RN - 08/28/2019 8:09 PM CDT Pt to ER room 3 w/c/o lower abdominal pain radiating to the lower back. Pt states that she was recently treated for trichomonas and after had a yeast infection. Pt states that she completed all medications but is still experiencing discomfort. Pt alert and oriented x 4 with respirations that are even and unlabored. * Lisy Cancino RN - 08/28/2019 7:59 PM CDT Patient presents to ED triage with complaint of right sided flank pain patient states that she was treated for trich and a UTI 2 weeks ago and is now having pain her flank and lower abdomin. No distress noted. documented in this encounter Plan of Treatment Not on file documented as of this encounter Procedures Procedure Name Priority Date/Time Associated Diagnosis Comments XR CHEST 2 VIEWS STAT 08/28/2019 10:[address] ABDOMEN PELVIS W/ CONTRAST STAT 08/28/2019 10:14 PM CDT CBC WITH AUTO DIFFERENTIAL STAT 08/28/2019 9:10 PM CDT CMP (COMPREHENSIVE METABOLIC PANEL) STAT 08/28/2019 9:10 PM CDT COMPLETE BLOOD COUNT (CBC) WITH DIFF STAT 08/28/2019 9:10 PM CDT URINALYSIS REFLEX IF INDICATED BY ABNORMAL RESULTS STAT 08/28/2019 8:20 PM CDT UR TEST QUAL STAT 08/28/2019 8:20 PM CDT CULTURE, URINE STAT 08/28/2019 8:20 PM CDT documented in this encounter Results * XR CHEST 2 VIEWS (08/28/2019 10:26 PM CDT) Anatomical Region Laterality Modality Chest N/A Digital Radiogra phy 08/28/2019 11:2 8 PM CDT Impressions 08/28/2019 11:30 PM CDT IMPRESSION: ?? No radiographic evidence of an acute cardiopulmonary process. Narrative 08/28/2019 11:30 PM CDT EXAM DESCRIPTION: ?? XR CHEST 2 VIEWS REASON FOR STUDY: ?? Chest discomfort and productive cough for 2 weeks TECHNIQUE: ?? Frontal and Lateral radiographs of the chest were obtained. COMPARISON: ?? 05/30/2019 FINDINGS: ?? Cardiac silhouette is within normal limits in size. ?? Trachea is midline. ??Lungs appear normally expanded. ??There is no evidence of consolidation, pneumothorax, or pleural effusion. THIS IS AN ELECTRONICALLY VERIFIED FINAL REPORT 08/28/2019 11:28 PM - Electronically signed by Jackson Sanchez M.D. AT: AT D: ??08/28/2019 11:28 PM T: ??08/28/2019 11:28 PM Report ID: [id number] Reading Location: ??[id number] Procedure Note Jackson Sanchez MD - 08/28/2019 EXAM DESCRIPTION: XR CHEST 2 VIEWS REASON FOR STUDY: Chest discomfort and productive cough for 2 weeks TECHNIQUE: Frontal and Lateral radiographs of the chest were obtained. COMPARISON: 05/30/2019 FINDINGS: Cardiac silhouette is within normal limits in size. Trachea is midline. Lungs appear normally expanded. There is no evidence of consolidation, pneumothorax, or pleural effusion. THIS IS AN ELECTRONICALLY VERIFIED FINAL REPORT 08/28/2019 11:28 PM - Electronically signed by Jackson Sanchez M.D. AT: AT Report ID: [id number] Reading Location: [id number] IMPRESSION: No radiographic evidence of an acute cardiopulmonary process. Dewey Dinero MD IMG DIAGNOSTIC ORDERABLES Final Result * CT ABDOMEN PELVIS W/ CONTRAST (08/28/2019 10:14 PM CDT) Anatomical Region Laterality Modality Abdomen N/A Computed Tomogra phy 08/28/2019 11:2 4 PM CDT Impressions 08/28/2019 11:26 PM CDT IMPRESSION: ?? 1. ??No evidence of small-bowel obstruction. 2. ??Status post appendectomy. 3. ??No evidence of hydronephrosis or obstructing renal calculus. 4. ??There is prominence of the cervix. ??Correlation with physical examination is recommended. ??No free pelvic fluid. ??Remainder of the uterus and the ovaries appear unremarkable. Narrative 08/28/2019 11:26 PM CDT EXAM DESCRIPTION: ?? CT ABDOMEN PELVIS W/ CONTRAST REASON FOR STUDY: ?? Right flank and lower abdominal pain for 2 weeks TECHNIQUE: ??CT scan of the abdomen and pelvis performed with intravenous and ??without oral contrast using helical scanning technique with dynamic intravenous contrast injection. Reconstructed coronal and sagittal MPR images reviewed. All images stored on PACS. Automated exposure control was used as a dose optimization technique for this examination. CONTRAST TYPE/DOSE: ?? 83 mL of Isovue 370 injected via ??right forearm COMPARISON: ?? None available FINDINGS: ??LOWER CHEST: ??Imaged lung bases appear clear. LIVER: ??Small enhancing mass within the right hepatic lobe measures 0.7 cm in size on axial image 17. ??Given patient age this likely relates to a nonaggressive etiology such as a flash filling hemangioma. GALLBLADDER: ??Mildly distended with fluid, otherwise unremarkable. BILE DUCTS: ??No intrahepatic or extrahepatic ductal dilatation. SPLEEN: ??Normal size. ??No focal lesions. PANCREAS: ??There is no evidence of a pancreatic mass or significant peripancreatic inflammation. ADRENALS: ??Normal. KIDNEYS/URINARY TRACT: ??No abnormally enhancing renal mass is identified. ??There is no evidence of hydronephrosis. ??No abnormally enhancing renal mass is identified. ??There is no evidence of an obstructing calculus. ??Bladder is mildly distended with fluid, otherwise unremarkable. GI: ??Postoperative changes of prior appendectomy are noted. ??There is no evidence of small-bowel obstruction. ??Fat containing umbilical hernia is present. PERITONEUM: ??No ascites or free air. RETROPERITONEUM: ??No mass or adenopathy. REPRODUCTIVE: ??No significant abnormality. VASCULATURE: ??Aorta demonstrates normal course and caliber. ??There is no abdominal aortic aneurysm. MUSCULOSKELETAL: ??No significant abnormality. OTHER: ??No other abnormality. THIS IS AN ELECTRONICALLY VERIFIED FINAL REPORT 08/28/2019 11:24 PM - Electronically signed by Jackson Sanchez M.D. AT: AT D: ??08/28/2019 11:24 PM T: ??08/28/2019 11:24 PM Report ID: [id number] Reading Location: ??[id number] Procedure Note Jackson Sanchez MD - 08/28/2019 EXAM DESCRIPTION: CT ABDOMEN PELVIS W/ CONTRAST REASON FOR STUDY: Right flank and lower abdominal pain for 2 weeks TECHNIQUE: CT scan of the abdomen and pelvis performed with intravenous and without oral contrast using helical scanning technique with dynamic intravenous contrast injection. Reconstructed coronal and sagittal MPR images reviewed. All images stored on PACS. Automated exposure control was used as a dose optimization technique for this examination. CONTRAST TYPE/DOSE: 83 mL of Isovue 370 injected via right forearm COMPARISON: None available FINDINGS: LOWER CHEST: Imaged lung bases appear clear. LIVER: Small enhancing mass within the right hepatic lobe measures 0.7 cm in size on axial image 17. Given patient age this likely relates to a nonaggressive etiology such as a flash filling hemangioma. GALLBLADDER: Mildly distended with fluid, otherwise unremarkable. BILE DUCTS: No intrahepatic or extrahepatic ductal dilatation. SPLEEN: Normal size. No focal lesions. PANCREAS: There is no evidence of a pancreatic mass or significant peripancreatic inflammation. ADRENALS: Normal. KIDNEYS/URINARY TRACT: No abnormally enhancing renal mass is identified. There is no evidence of hydronephrosis. No abnormally enhancing renal mass is identified. There is no evidence of an obstructing calculus. Bladder is mildly distended with fluid, otherwise unremarkable. GI: Postoperative changes of prior appendectomy are noted. There is no evidence of small-bowel obstruction. Fat containing umbilical hernia is present. PERITONEUM: No ascites or free air. RETROPERITONEUM: No mass or adenopathy. REPRODUCTIVE: No significant abnormality. VASCULATURE: Aorta demonstrates normal course and caliber. There is no abdominal aortic aneurysm. MUSCULOSKELETAL: No significant abnormality. OTHER: No other abnormality. THIS IS AN ELECTRONICALLY VERIFIED FINAL REPORT 08/28/2019 11:24 PM - Electronically signed by Jackson Sanchez M.D. AT: AT Report ID: [id number] Reading Location: [id number] IMPRESSION: 1. No evidence of small-bowel obstruction. 2. Status post appendectomy. 3. No evidence of hydronephrosis or obstructing renal calculus. 4. There is prominence of the cervix. Correlation with physical examination is recommended. No free pelvic fluid. Remainder of the uterus and the ovaries appear unremarkable. us Dewey Dinero MD IMG CT ORDERABLES Final R esult * (ABNORMAL) CBC with Auto Differential (08/28/2019 9:10 PM CDT) [facility] WBC 8.14 4.00 - 12.00 10(3)/mcL 08/28/2019 9:42 PM CDT [facility] RBC 4.21 3.80 - 5.30 10(6)/mcL 08/28/2019 9:42 PM CDT [facility] HEMOGLOBIN (HGB) 11.9(L) 12.0 - 15.8 g/dL 08/28/2019 9:42 PM CDT [facility] HEMATOCRIT (HCT) 37.6 36.0 - 47.0 % 08/28/2019 9:42 PM CDT [facility] MCV 89.3 82.0 - 96.0 fL 08/28/2019 9:42 PM CDT [facility] MCH 28.3 26.0 - 34.0 pg 08/28/2019 9:42 PM CDT [facility] MCHC 31.6 31.0 - 36.0 g/dL 08/28/2019 9:42 PM CDT [facility] PLATELET COUNT 272 140 - 440 10(3)/[facility] 08/28/2019 9:42 PM CDT [facility] RDW 13.7 11.8 - 15.5 % 08/28/2019 9:42 PM CDT [facility] MPV 11.1 9.7 - 12.4 fL 08/28/2019 9:42 PM CDT [facility] NEUTROPHILS 78.8(H) 47.0 - 73.0 % 08/28/2019 9:42 PM CDT [facility] LYMPHOCYTES 14.0(L) 18.0 - 42.0 % 08/28/2019 9:42 PM CDT [facility] MONOCYTES 5.9 4.0 - 12.0 % 08/28/2019 9:42 PM CDT [facility] EOSINOPHILS 0.9 0.0 - 5.0 % 08/28/2019 9:42 PM CDT [facility] BASOPHILS 0.4 0.0 - 1.0 % 08/28/2019 9:42 PM CDT [facility] ABSOLUTE NEUTROPHILS 6.42 1.60 - 7.70 10(3)/mcL 08/28/2019 9:42 PM CDT [facility] ABSOLUTE LYMPHOCYTES 1.14(L) 1.30 - 3.20 10(3)/[facility] 08/28/2019 9:42 PM CDT [facility] ABSOLUTE MONOCYTES 0.48 0.20 - 1.00 10(3)/[facility] 08/28/2019 9:42 PM CDT [facility] ABSOLUTE EOSINOPHIL 0.07 0.00 - 0.40 10(3)/[facility] 08/28/2019 9:42 PM CDT [facility] ABSOLUTE BASOPHILS 0.03 0.00 - 0.10 10(3)/[facility] 08/28/2019 9:42 PM CDT [facility] NRBC PER 100 WBC 0 08/28/19 20 9:42 PM CDT [facility] RESULTS ARE CONSISTENT WITH PERIPHERAL SMEAR REVIEW Yes 08/28/2019 9:42 PM CDT [facility] Blood Venipuncture / Unknown 08/28/2019 9:10 PM CDT 08/28/2019 9:17 PM CDT us Dewey Dinero MD HEMATOLOGY ORDERABLES Fin al Result [facility] [address] [place] [address] * (ABNORMAL) CMP (Comprehensive Metabolic Panel) (08/28/2019 9:10 PM CDT) SODIUM 135(L) 136 - 144 mmol/L 08/28/2019 9:39 PM CDT [facility] POTASSIUM 4.1 3.5 - 5.1 mmol/L 08/28/2019 9:39 PM CDT [facility] CHLORIDE 97(L) 100 - 110 mmol/L 08/28/2019 9:39 PM CDT [facility] CO2, VENOUS 25 22 - 32 mmol/L 08/28/2019 9:39 PM CDT [facility] ANION GAP 17.1 8.0 - 20.0 mmol/L 08/28/2019 9:[address] [facility] GLUCOSE 132(H) 70 - 99 mg/dL 08/28/2019 9:39 PM CDT [facility] BUN 10 6 - 20 mg/dL 08/28/2019 9:[address] [facility] CREATININE, BLOOD 0.85 0.60 - 1.10 mg/dL 08/28/2019 9:[address] [facility] BUN/CREATININE RATIO 12 12 - 20 ratio 08/28/2019 9:[address] [facility] TOTAL PROTEIN 7.5 6.0 - 8.3 g/dL 08/28/2019 9:[address] [facility] ALBUMIN 4.2 3.5 - 5.2 g/dL 08/28/2019 9:[address] [facility] Comment: The colormetric methods used for the determination of Albumin may lead to falsely elevated test results in patients suffering from renal failure or insufficiency due to interference with other proteins. A/G RATIO 1.3 1.0 - 2.0 08/28/2019 9:[address] [facility] CALCIUM 9.5 8.9 - 10.3 mg/dL 08/28/2019 9:[address] [facility] T BILI 0.3 <=1.2 mg/dL 08/28/2019 9:39 PM T [facility] SGOT (AST) 36(H) <=32 U/L 08/28/2019 9:[address] [facility] Comment: Hemolysis present: results may be falsely elevated. SGPT (ALT) 17 <=33 U/L 08/28/2019 9:[address] [facility] Comment: Hemolysis present: results may be falsely elevated. ALKALINE PHOSPHATASE 46 35 - 105 U/L 08/28/2019 9:[address] [facility] GFR, EST. NONAFRICAN >60 >=60 08/28/2019 9:39 PM CDT [facility] GFR, EST. >60 >=60 020 9:39 PM CDT [facility] Comment: Creatinine Clearance is the preferred criteria for selecting drug dose adjustments in renally impaired patients. ??The GFR is provided as additional pertinent clinical information. GFR is reported in mL/min/1.73 sq m. Blood Venipuncture / Unknown 08/28/2019 9:10 PM CDT 08/28/2019 9:17 PM CDT Dewey Dinero MD CHEMISTRY ORDERABLES Briana l Result Performing Organization Address [facility]/ZIP Co de Phone Number [facility] [place] [address] * Culture, Urine (08/28/2019 8:20 PM CDT) CULTURE RESULTS ENTEROCOCCUS 08/31/2019 9:57 AM CDT [facility] Urine URINE SPECIMEN COLLECTION, CLEAN CATCH / Unknown Non-Phlebotomy Collection / Unknown 08/28/2019 8:20 PM CDT 08/28/2019 8:56 PM CDT Narrative [facility] - 08/31/2019 9:57 AM CDT Susceptibility not performed on enterococcus species. ??Due to high achievable concentrations in urine, Ampicillin is the drug of choice for treating infections limited to the lower urinary tract (regardless of Vancomycin susceptibility). ??For allergic patients, Nitrofurantoin or a quinolone may be substituted. ??For epidemiological purposes only, a Vancomycin screen will be performed and reported if positive. Dewey Dinero MD MICROBIOLOGY - GENERAL OR DERABLES Final Result Performing Organization Address City/[facility]/ZIP Co de Phone Number [facility] [address] [place] [address], [place] * Ur Test Qual (08/28/2019 8:20 PM CDT) PREG TEST,MONOCLONA L Negative 08/28/2019 9:23 PM CDT [facility] Urine Non-Phlebotomy Collection / Unknown 08/28/2019 8:20 PM CDT 08/28/2019 9:16 PM CDT us Dewey Dinero MD URINE ORDERABLES Final Re sult [facility] [place] [address] * (ABNORMAL) URINALYSIS REFLEX IF INDICATED BY ABNORMAL RESULTS (08/28/2019 8:20 PM CDT) SPECIFIC GRAVITY 1.020 1.003 - 1.030 08/28/2019 9:19 PM CDT [facility] URINE PH 6.0 5.0 - 9.0 08/28/2019 9:19 PM CDT [facility] WBC ESTERASE Negative Negative 08/28/2019 9:19 PM CDT [facility] NITRITE Negative Negative 08/28/2019 9:19 PM CDT [facility] PROTEIN, RANDOM URINE 30 mg/dL(A) Negative 08/28/2019 9:19 PM CDT [facility] URINE GLUCOSE, QUAL Negative Negative 08/28/2019 9:19 PM CDT [facility] URINE KETONES Negative Negative 08/28/2019 9:19 PM CDT [facility] UROBILINOGEN Normal Normal mg/dL 08/28/2019 9:19 PM CDT [facility] URINE BILIRUBIN Negative Negative 0 9:19 PM CDT [facility] URINE BLOOD Negative Negative pierre/ul 08/28/2019 9:19 PM CDT [facility] URINALYSIS COLOR Pale yellow 020 9:19 PM CDT [facility] URINALYSIS CLARITY Slightly Cloudy 08/28/2019 9:19 PM CDT [facility] WBC (Urine) 6-10(A) Negative, 0-5 /hpf 08/28/2019 9:19 PM CDT [facility] URINE RBC'S 3-5(A) Negative, 0-2 /hpf 08/28/2019 9:19 PM CDT [facility] EPITHELIAL CELLS Moderate amount /lpf 08/28/2019 9:19 PM CDT [facility] BACTERIA, URINE Few(A) Negative /hpf 08/28/2019 9:19 PM CDT [facility] URINE MUCOUS Few 08/28/2019 9:19 PM CDT [facility] Urine URINE SPECIMEN COLLECTION, CLEAN CATCH / Unknown Non-Phlebotomy Collection / Unknown 08/28/2019 8:20 PM CDT 08/28/2019 8:56 PM CDT us Dewey Dinero MD URINE ORDERABLES Final Re sult [facility] [place] [address] documented in this encounter Visit Diagnoses Diagnosis Acute bilateral flank pain- Primary Abdominal pain, unspecified site documented in this encounter Administered Medications Inactive Administered Medications - up to 3 most recent administrations Medication Order MAR Action Action Date Dose Rate Site 0.9 % sodium chloride solution at 1,000 mL/hr, Intravenous, ONCE, 1 dose, On Sun08/28/19 at 2130 New Bag 08/28/2019 9:39 PM CDT 1000 mL/hr iopamidol (ISOVUE-370) 76 % injection 83 mL 83 mL, Intravenous, ONCE, 1 dose, On Rachel 08/28/19 at 2230 Given 08/28/2019 10:13 PM CDT 83 mL ondansetron (ZOFRAN) injection 4 mg 4 mg, Intravenous, ONCE, 1 dose, On Rachel 08/28/19 at 2200 Given 08/28/2019 9:42 PM CDT 4 mg documented in this encounter Active and Recently Administered Medications Times are shown in CDT. Scheduled Medication Order 08/27/2019 08/28/2019 08/29/2019 0.9 % sodium chloride solution (COMPLETED) at 1,000 mL/hr, Intravenous, ONCE, 1 dose, On Sun20 at 2130 2139 (New Bag - Provider: Esau Parsk, RN)2219 (Stopped - Provider: Esau Parks, PRO) iopamidol (ISOVUE-370) 76 % injection 83 mL (COMPLETED) 83 mL, Intravenous, ONCE, 1 dose, On Rachel 08/28/19 at 2230 2213 (Given - Provider: Anthony Blanca, RT(R) (CT)) ondansetron (ZOFRAN) injection 4 mg (COMPLETED) 4 mg, Intravenous, ONCE, 1 dose, On Rachel 08/28/19 at 2200 2142 (Given - Provider: Ziyad Parks, PRO) documented in this encounter Additional Health Concerns Assessment Noted Time PHQ-9 Depression Total Score: 0 03/25/19 20 10:00 AM CENTRAL OFFICE TECHNICIAN documented as of this encounter Care Teams Anode Adjuster Relationship Specialty Start Date End Date Gayla Barker, COUNTER SUPERVISOR, SERVICE STATION ATTENDANT [address] [place] [address] PCP - General Advanced Practice Nurse 03/25/19 documented as of this encounter
--- OUTSIDE RECORDS SUMMARY | 2024-02-24 19:46 | XMS_ITS | Encounter Summary ---
Author Organization [employer] Care Team Providers Care Vehicle Cost Engineer Name Role Phone Gayla Barker APRN, HASRHA Primary Care Provider Ct, [facility] Unavailable Marianela vailable Encounter Details Date Type Department Care Team (Latest Contact Info) Description 10/15/2019 Travel Social History Tobacco Use Types Packs/Day [...] file Legal Sex Female 10:27 AM FILLER ROOM ATTENDANT Gender Identity Not on file Sexual Orientation Not on file COVID-19 Exposure Response Date Recorded In the last month, have you been in contact with someone who was confirmed or suspected to have Coronavirus / COVID-19? No / Unsure 10/15/2019 11:15 AM CDT documented as of this encounter Plan of Treatment Not on file documented as of this encounter Visit Diagnoses Not on filedocumented in this encounter Additional Health Concerns Assessment Noted Time PHQ-9 Depression Total Score: 0 03/25/19 20 10:00 AM FILLER ROOM ATTENDANT documented as of this encounter Care Teams Vehicle Cost Engineer Relationship Specialty Start Date End Date Gayla Barker APRN, CNP [address] [place] [address] PCP - General Advanced Practice Nurse 03/25/19 Ct[facility] [place] [facility] 09/03/19 documented as of this encounter
--- OUTSIDE RECORDS SUMMARY | 2024-02-24 19:46 | XMS_ITS | Encounter Summary ---
Author Organization [facility] Address [address] [facility] [place] [address] Phone Care Team Providers Care Ruby Engineer Name Role Phone Gayla Barker APRN, TIRE CLASSIFIER Primary Care Provider Ct, [facility] Unavailable Marianela vailable Reason for Visit * Reason Onset Date Comments Extremity Weakness 10/05/2019 Encounter Details Date Type Department Care Team (Late st Contact Info) Description 10/05/2019 [facility] [address] [place] [address] Gayla Barker, ANNIE, TIRE CLASSIFIER [address] [place] [address] Extremity Weakness Social History Tobacco Use Types Packs/Day Years [...] file Legal Sex Female 10:27 AM DIRECTOR GOVERNMENT Gender Identity Not on file Sexual Orientation Not on file COVID-19 Exposure Response Date Recorded In the last month, have you been in contact with someone who was confirmed or suspected to have Coronavirus / COVID-19? No / Unsure 10/03/2019 9:34 AM CDT documented as of this encounter Miscellaneous Notes * Telephone Encounter - Gilmer Rivas RN - 10/05/2019 3:59 PM CDT SITUATION (caller perception/concerns): Generalized weakness BACKGROUND (events leading up to call): Patient was seen in the ED 09/30 (4 days ago) and treated forbronchitis with Levaquin. ASSESSMENT: Patient states about 4 hours ago she began having bilateral leg pain and weakness. The pain and weakness has progressed to all over her body. Yesterday she thought the back of her wrist was ripping . Feels like her heart is beating fast but her rate is 111 per patient's measure. Deniesfevers. States she feels like her legs give out when she walks. RECOMMENDATION: Go to ED now. Patient is not wanting to go to the ED. States the urgent care was more helpful. Reviewed the need for ED visit, but patient is still not wanting to go to the ED. Patient instructed the need to be seen tonight. Patient will start at the Immediate [facility] per her preferences. Discussed with the patient that she might be sent to ED. Patient voices understanding to this. See care advice and disposition for guideline. [...] method utilized. Reason for Disposition ??? [1] MODERATE weakness (i.e., interferes with work, school, normal activities) AND [2] cause unknown (Exceptions: weakness with acute minor illness, or weakness from poor fluid intake) Protocols used: WEAKNESS (GENERALIZED) AND [id number] documented in this encounter Plan of Treatment Not on file documented as of this encounter Visit Diagnoses Not on filedocumented in this encounter Additional Health Concerns Assessment Noted Time PHQ-9 Depression Total Score: 0 03/25/19 20 10:00 AM DIRECTOR GOVERNMENT documented as of this encounter Care Teams Ruby Engineer Relationship Specialty Start Date End Date Gayla Barker, COUNTY ATTORNEY, TIRE CLASSIFIER [address] [place] [address] PCP - General Advanced Practice Nurse 03/25/19 Ct, [facility] [place] [facility] 09/03/19 documented as of this encounter
--- OUTSIDE RECORDS SUMMARY | 2024-02-24 19:46 | XMS_ITS | Encounter Summary ---
Author Organization [employer] Care Team Providers Care Nutrition Teacher Name Role Phone Gayla Barker APRN, HARSHA Primary Care Provider Ct, [facility] Home [facility] Unavailable Marianela vailable Encounter Details Date Type Department Care Team (Latest Contact Info) Description 09/12/2019 Travel Social History Tobacco Use Types Packs/Day [...] on file Legal Sex Female 10:27 AM AUDIO/VISUAL OPERATOR Gender Identity Not on file Sexual [...] Total Score: 0 03/25/19 20 10:00 AM AUDIO/VISUAL OPERATOR documented as of this encounter Care Teams Nutrition Teacher Relationship Specialty Start Date End Date Gayla Barker APRN, HARSHA [address] [place] [address] PCP - General Advanced Practice Nurse 03/25/19 Ct, [facility] [place] [facility] 09/03/19 documented as of this encounter
--- OUTSIDE RECORDS SUMMARY | 2024-02-24 19:46 | XMS_ITS | Encounter Summary ---
Author Organization [employer] Care Team Providers Care Food Service Helper Name Role Phone Gayla Barker CLOTH HAULER, EQUIPMENT MAN Primary Care Provider Ct, [facility] Unavailable Marianela vailable Encounter Details Date Type Department Care Team (Latest Contact Info) Description 09/28/2019 Travel Social History Tobacco Use Types Packs/Day [...] on file Legal Sex Female 10:27 AM LIQUEFACTION SUPERVISOR Gender Identity Not on file Sexual [...] Total Score: 0 03/25/19 20 10:00 AM LIQUEFACTION SUPERVISOR documented as of this encounter Care Teams Food Service Helper Relationship Specialty Start Date End Date Gayla Barker, CLOTH HAULER, EQUIPMENT MAN [address] [place] [address] PCP - General Advanced Practice Nurse 03/25/19 Ct[facility] [place] [facility] 09/03/19 documented as of this encounter
--- OUTSIDE RECORDS SUMMARY | 2024-02-24 19:46 | XMS_ITS | Encounter Summary ---
Author Organization [facility] Address [address] [place] [address] Phone Care Team Providers Care Master Ocean Name Role Phone Gayla Barker APRN, BUSINESS APPLICATIONS SPECIALIST Primary Care Provider Ct, [facility] Unavailable Marianela vailable Encounter Details Date Type Department Care Team ([facility] Contact Info) Description 10/19/2019 Telephone [facility] Digital Contact Center [address] [place] [address] Gayla Barker, ANNIE, BUSINESS APPLICATIONS SPECIALIST [address] [place] [address] Social History Tobacco Use Types [...] on file Legal Sex Female 10:27 AM HYDROMETALLURGICAL 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 Yes 10/17/2019 9:02 PM CDT documented as of this encounter Miscellaneous Notes * Telephone Encounter - Laura Triplett RN - 10/19/2019 1:40 PM CDT Patient calling wondering if her swab results, from yesterday, are back yet. Informed that it couldtake a couple days to get results and that the RECEIVING LEAD will notify her when the results are back. She states her is a teacher and they need the results before deciding if he should go to work tmw. Patient advised that based on symptoms she should isolate for 10 days from when her symptoms started. Her and anyone who has had contact with her should monitor for symptoms for 14 days, stay home as much as possible, and maintain social distancing practices. Patient states she was prescribed zofran but is still vomiting every time I eat. patient advised to dry small amount of clear liquids and to not attempt eating until no vomiting for 8 hours then to proceed to BRAT diet and to avoid greasy, spicy, or dairy based foods and that it may take 1-2 days of this before she can resume to her normal diet. Patient also advised to keep the volume on her phone turned up and to continue to watch for any calls from our providers regarding her test results. Patient verbalizes understanding. documented in this encounter Plan of Treatment Not on file documented as of this encounter Visit Diagnoses Not on filedocumented in this encounter Additional Health Concerns Infection Onset Date Last Indicated Resolved Time COVID - 19 10/17/2019 10/18/2019 10/22/2019 3:33 PM CDT Assessment Noted Time PHQ-9 Depression Total Score: 0 03/25/19 20 10:00 AM HYDROMETALLURGICAL ENGINEER documented as of this encounter Care Teams Master Ocean Relationship Specialty Start Date End Date Gayla Barker, FORMING PROCESS WORKER, BUSINESS APPLICATIONS SPECIALIST [address] [place] [address] PCP - General Advanced Practice Nurse 03/25/19 Ct[facility] [place] [facility] 09/03/19 documented as of this encounter
--- OUTSIDE RECORDS SUMMARY | 2024-02-24 19:46 | XMS_ITS | Encounter Summary ---
Author Organization [facility] Address [address] [place] [address] Phone Care Team Providers Care Journeyman Carpenter Name Role Phone Gayla Barker APRN, CNP Primary Care Provider Ct, [facility] Unavailable Marianela vailable Reason for Visit * Reason Onset Date Comments Results 10/23/2019 Encounter Details Date Type Department Care Team (Late st Contact Info) Description 10/23/2019 Telephone [facility] - Primary Care - [place] [address] [place] [address] Gayla Barker APRN, CNP [address] [place] [address] Results Social History Tobacco Use [...] on file Legal Sex Female 10:27 AM CHORUS DANCER Gender Identity Not on file Sexual Orientation Not on file COVID-19 Exposure Response Date Recorded In the last month, have you been in contact with someone who was confirmed or suspected to have Coronavirus / COVID-19? No / Unsure 10/22/2019 7:58 AM CDT documented as of this encounter Miscellaneous Notes * Telephone Encounter - Leti Gusman RN - 10/23/2019 11:08 AM CDT Hardik from [facility] lab phoned the office to make PCP aware that Hep B lab results had been re-ran and entered as edited results. There had been a problem with the analyzer yesterday and several patient's results had been incorrect. Routing as FYI. documented in this encounter Plan of Treatment Not on file documented as of this encounter Visit Diagnoses Not on filedocumented in this encounter Additional Health Concerns Assessment Noted Time PHQ-9 Depression Total Score: 0 03/25/19 20 10:00 AM CHORUS DANCER documented as of this encounter Care Teams Journeyman Carpenter Relationship Specialty Start Date End Date Gayla Barker, PATIENT REGISTRAR, SOFTWARE ENGINEER INTERN [address] [place] [address] PCP - General Advanced Practice Nurse 03/25/19 Ct[facility] [place] [facility] 09/03/19 documented as of this encounter
--- OUTSIDE RECORDS SUMMARY | 2024-02-24 19:46 | XMS_ITS | Encounter Summary ---
Author Organization [employer] Care Team Providers Care Cable Television Installer Name Role Phone Gayla Barker CEMENT MASON HELPER, CAFETERIA AIDE Primary Care Provider Ct, [facility] Home [facility] Unavailable Marianela vailable Encounter Details Date Type Department Care Team (Latest Contact Info) Description 10/03/2019 Travel Social History Tobacco Use Types Packs/Day [...] on file Legal Sex Female 10:27 AM REGIONAL EXTENSION SERVICE SPECIALIST Gender Identity Not on file Sexual [...] Total Score: 0 03/25/19 20 10:00 AM REGIONAL EXTENSION SERVICE SPECIALIST documented as of this encounter Care Teams Cable Television Installer Relationship Specialty Start Date End Date Gayla Barker, CEMENT MASON HELPER, CAFETERIA AIDE [address] [place] [address] PCP - General Advanced Practice Nurse 03/25/19 Ct, [facility] [place] [facility] 09/03/19 documented as of this encounter
--- OUTSIDE RECORDS SUMMARY | 2024-02-24 19:46 | XMS_ITS | Encounter Summary ---
Author Organization [facility] Address [address] [facility] [place] [address] Phone Care Team Providers Care Food Vendor Name Role Phone Gayla Barker APRN, CNP Primary Care Provider Ct, Acute Covid At Home Care Unavailable Marianela vailable Reason for Referral * Other (Routine) - Open Specialty Diagnoses / Procedures Referred By Jud freeman Referred To Contact General Surgery Diagnoses COVID-19 virus detected Procedures HOME CARE TELEMONITORING Sofia Arguello APRN, CNP [address] [place] [address] Phone: tel: fax: Referral ID Status Reason Start Date Expiration Date Visits Re quested Visits Authorized [id number] Open 09/03/2019 1 1 Reason for Visit * Reason Onset Date Comments COVID-19 09/03/2019 Encounter Details Date Type Department Care Team (Late st Contact Info) Description 09/03/2019 [facility] [address] [place] [address] Sofia Arguello APRN, YARD DRIVER [address] [place] [address] COVID-19 virus detected (Primary Dx) Social History Tobacco Use Types [...] on file Legal Sex Female 10:27 AM TAKER AWAY Gender Identity Not on file Sexual Orientation Not on file COVID-19 Exposure Response Date Recorded In the last month, have you been in contact with someone who was confirmed or suspected to have Coronavirus / COVID-19? Yes 09/03/2019 7:37 PM CDT documented as of this encounter Progress Notes * Sofia Arguello APN, HARSHA - 09/03/2019 8:39 PM CDT [facility] COVID Advanced Home Monitoring Program Evaluation Decision and Actions Likely covid-19 with mild illness and age or comorbidities increasing risk of deterioration or complication - enrollment in [facility] Pandemic Active Monitoring Program. Enrollment order, order [employer] monitoring package, arrange check in telephone call from [facility] RN the evening of first contact (monitoring package will not have arrived yet), and [facility] RN follow up phone call oncemonitoring package has arrived Carito Rausch verbally consented for enrollment and digital treatment through the [facility] Covid @ Home Program. Risks and benefits of this program were discussed with the patient. Thepatient was informed to call 911 if their condition rapidly deteriorates at home. Wishes to be contacted: 0 times per day This visit was performed via telephone visit. Diagnosis and Associated Orders: 1. COVID-19 virus detected COVID ADVANCED HOME MONITORING HOME CARE TELEMONITORING HPI: Carito Rausch is a 29 y.o. female who is being referred to the [facility] Acute Monitoring Program. Contacts: close contact with known COVID-19 case Date of first symptoms: 09/05/19 COVID testing: negative Past Medical History: She has a past medical history of Asthma, CKD (chronic kidney disease) stage 1, GFR 90 ml/min or greater, Lupus (systemic lupus erythematosus) (HCC), and Seizures (HCC). Surgical History: has a past surgical history that includes Appendectomy and Wrist Surgery. Social History: reports that she has been smoking. She has never used smokeless tobacco. She reports previous alcohol use. She reports previous drug use. Drug: Marijuana. Allergies: is allergic to effexor [venlafaxine] and medrol [methylprednisolone]. Home Medications: Outpatient Medications Prior to Visit Medication Sig ??? albuterol 108 (90 Base) MCG/ACT Aerosol Solution take 2 Puffs by inhalation every 4 hours as needed for Cough (shortness of breath). ??? ALPRAZolam (XANAX) 0.25 MG Tablet TAKE 1 TABLET BY MOUTH 3 TIMES DAILY NEEDED FOR ANXIETY ??? amoxicillin (AMOXIL) 500 MG Capsule Take 1 Cap by mouth 3 times daily for 7 days. ??? benzonatate (TESSALON) 100 MG Capsule Take 1 Cap by mouth 3 times daily as needed for Cough forup to 10 days. ??? ergocalciferol (VITAMIN D) 18108 UNIT Capsule TAKE 1 CAPSULE BY MOUTH ONE TIME PER WEEK ??? Escitalopram Oxalate (LEXAPRO) 5 MG Tablet Take 5 mg by mouth daily. ??? hydroxychloroquine (PLAQUENIL) 200 MG Tablet Take 1 Tab by mouth daily. ??? ketorolac (TORADOL) 10 MG Tablet Take 10 mg by mouth every 4 hours as needed. ??? OMEPRAZOLE PO Take 20 mg by mouth. ??? ondansetron (ZOFRAN) 4 MG Tablet Take 1-2 Tabs by mouth every 8 hours as needed for Nausea - 1st line. ??? predniSONE (DELTASONE) 10 MG Tablet Take 1 Tab by mouth daily. ??? predniSONE (DELTASONE) 5 MG Tablet Take 1 Tab by mouth daily. (Patient taking differently: Take2 mg by mouth daily.) No facility-administered medications prior to visit. Relevant Review of Symptoms - cough, temperature 37.5-38 F, shortness of breath, chills, diarrhea and any comorbidity ??? Vital Signs - In office No data recorded No data recorded No data recorded ??? Recent Labs Results for orders placed or performed during the hospital encounter of 08/28/19 CBC with Auto Differential Result Value Ref Range WBC 8.14 4.00 - 12.00 10(3)/mcL RBC 4.21 3.80 - 5.30 10(6)/mcL HEMOGLOBIN (HGB) 11.9 (L) 12.0 - 15.8 g/dL HEMATOCRIT (HCT) 37.6 36.0 - 47.0 % MCV 89.3 82.0 - 96.0 fL MCH 28.3 26.0 - 34.0 pg MCHC 31.6 31.0 - 36.0 g/dL PLATELET COUNT 272 140 - 440 10(3)/mcL RDW 13.7 11.8 - 15.5 % MPV 11.1 9.7 - 12.4 fL NEUTROPHILS 78.8 (H) 47.0 - 73.0 % LYMPHOCYTES 14.0 (L) 18.0 - 42.0 % MONOCYTES 5.9 4.0 - 12.0 % EOSINOPHILS 0.9 0.0 - 5.0 % BASOPHILS 0.4 0.0 - 1.0 % ABSOLUTE NEUTROPHILS 6.42 1.60 - 7.70 10(3)/mcL ABSOLUTE LYMPHOCYTES 1.14 (L) 1.30 - 3.20 10(3)/mcL ABSOLUTE MONOCYTES 0.48 0.20 - 1.00 10(3)/mcL ABSOLUTE EOSINOPHIL 0.07 0.00 - 0.40 10(3)/mcL ABSOLUTE BASOPHILS 0.03 0.00 - 0.10 10(3)/mcL NRBC PER 100 WBC 0 RESULTS ARE CONSISTENT WITH PERIPHERAL SMEAR REVIEW Yes o Lab Results Component Value Date SODIUM 135 (L) 08/28/2019 POTASSIUM 4.1 08/28/2019 CHLORIDE 97 (L) 08/28/2019 CO2VEN 25 08/28/2019 ANIONGAP 17.1 08/28/2019 GLUCOSE 132 (H) 08/28/2019 BUN 10 08/28/2019 CREATININE 0.85 08/28/2019 BCRATIO8 12 08/28/2019 TOTALPROTEIN 7.5 08/28/2019 ALBUMIN 4.2 08/28/2019 CALCIUM 9.5 08/28/2019 TBIL 0.3 08/28/2019 SGOTAST 36 (H) 08/28/2019 SGPTALT 17 08/28/2019 ALKALINEPHO 46 08/28/2019 GFRNA >60 08/28/2019 GFRA >60 08/28/2019 o o No results found for: MAGNESIUM, PHOSPHORUS o No results found for: LACACIDPOCT, LACTICA o No results found for: PHARTERIAL, PO2ART, QZS0DRM, CO2ART, O2ART ??? Chest Xray, CT Scans, impression XR CHEST 2 VIEWS 08/28/2019 (Final) Impression IMPRESSION: No radiographic evidence of an acute cardiopulmonary process. US CHEST INCLUDES MEDIASTINUM 07/07/2019 (Final) Impression IMPRESSION: No soft tissue mass, fluid collection, or foreign body. XR CHEST 2 VIEWS 05/30/2019 (Final) Impression IMPRESSION: No acute cardiopulmonary process. XR CHEST SINGLE VIEW PORTABLE 05/19/2019 (Final) Impression IMPRESSION: No evidence of an acute cardiopulmonary abnormality. XR CHEST 2 VIEWS 04/28/2019 (Final) Impression IMPRESSION: The lungs are clear. o Virtual Exam: Speaking in complete sentences. No distress noted. Time spent on telephone/video with patient: 8 minutes documented in this encounter Plan of Treatment Scheduled Orders Name Type Priority Associated Diagnoses Orde r Schedule HOME CARE TELEMONITORING Procedures Routine COVID-19 virus detected Ordered: 09/03/2019 documented as of this encounter Visit Diagnoses Diagnosis COVID-19 virus detected- Primary documented in this encounter Additional Health Concerns Infection Onset Date Last Indicated Resolved Time COVID - 19 09/03/2019 09/04/2019 09/09/2019 11:2 5 AM CDT Assessment Noted Time PHQ-9 Depression Total Score: 0 03/25/19 10:00 AM TAKER AWAY documented as of this encounter Care Teams Food Vendor Relationship Specialty Start Date End Date Gayla Barker APRN, HARSHA [address] [place] [address] PCP - General Advanced Practice Nurse 03/25/19 Ct, [facility] [place] [facility] 09/03/19 documented as of this encounter
--- OUTSIDE RECORDS SUMMARY | 2024-02-24 19:46 | XMS_ITS | Encounter Summary ---
Author Organization [employer] Care Team Providers Care Botany Professor Name Role Phone Gayla Barker APRN, HARSHA Primary Care Provider Ct, Acute Covid At Home Care Unavailable Marianela vailable Encounter Details Date Type Department Care Team (Latest Contact Info) Description 09/23/2019 Travel Social History Tobacco Use Types Packs/Day [...] on file Legal Sex Female 10:27 AM WORT EXTRACTOR Gender Identity Not on file Sexual Orientation [...] Total Score: 0 03/25/19 20 10:00 AM WORT EXTRACTOR documented as of this encounter Care Teams Botany Professor Relationship Specialty Start Date End Date Gayla Barker APRN, CNP [address] [place] [address] PCP - General Advanced Practice Nurse 03/25/19 Ct, [facility] [place] [facility] 09/03/19 documented as of this encounter
--- OUTSIDE RECORDS SUMMARY | 2024-02-24 19:46 | XMS_ITS | Encounter Summary ---
Author Organization [employer] Care Team Providers Care Cream Gatherer Name Role Phone Gayla Barker BENCH TECHNICIAN, COTTON BALER Primary Care Provider Ct, Acute Covid At Home Care Unavailable Marianela vailable Encounter Details Date Type Department Care Team (Latest Contact Info) Description 10/21/2019 Travel Social History Tobacco Use Types Packs/Day [...] on file Legal Sex Female 10:27 AM DIGITAL DEVELOPER Gender Identity Not on file Sexual [...] Total Score: 0 03/25/19 20 10:00 AM DIGITAL DEVELOPER documented as of this encounter Care Teams Cream Gatherer Relationship Specialty Start Date End Date Gayla Barker, BENCH TECHNICIAN, COTTON BALER [address] [place] [address] PCP - General Advanced Practice Nurse 03/25/19 Ct, Acute [facility] Home [facility] [place] [facility] 09/03/19 documented as of this encounter
--- OUTSIDE RECORDS SUMMARY | 2024-02-24 19:46 | XMS_ITS | Encounter Summary ---
Author Organization [facility] Address [address] [place] [address] Phone Care Team Providers Care Healthcare Business Analyst Name Role Phone Gayla Barker APRN, CASTER INVESTMENT CASTING Primary Care Provider Ct, Acute Covid At Home Care Unavailable Marianela vailable Reason for Visit * Reason Comments Cough Encounter Details Date Type Department Care Team (Late st Contact Info) Description 10/01/2019 9:37 AM CDT - 10/01/2019 11:40 AM CDT Emergency [facility] Emergency [address] [place] [address] Dewey Dinero MD [address] [place] [address] Acute bronchitis Discharge Disposition: Discharged to home or Selfcare [...] on file Legal Sex Female 10:27 AM GYM TEACHER Gender Identity Not on file Sexual Orientation Not on file COVID-19 Exposure Response Date Recorded In the last month, have you been in contact with someone who was confirmed or suspected to have Coronavirus / COVID-19? No / Unsure 10/01/2019 9:29 AM CDT documented as of this encounter Last Filed Vital Signs Vital Sign Reading Time Taken Comments Blood Pressure 163/64 10/01/2019 11:35 AM CDT Pulse 80 10/01/2019 11:35 AM CDT Temperature 36.4 ??C (97.5 ??F) 10/01/2019 9:34 AM CD T Respiratory Rate 18 10/01/2019 11:35 AM CDT Oxygen Saturation 100% 10/01/2019 11:35 AM CDT Inhaled Oxygen Concentration - - Weight 74.8 kg (165 lb) 10/01/2019 9:34 AM CDT Height 160 cm (5' 3 ) 10/01/2019 9:34 AM CDT Body Mass Index 29.23 10/01/2019 9:34 AM CDT documented in this encounter Discharge Instructions * Attachments The following attachments cannot be sent through Care Everywhere. * Bronchitis, Antibiotic Treatment (Adult) (Armenian) documented in this encounter Medications at Time [...] needed for Anxiety. 30 Tab 09/05/2019 0 HYDROcodone-acet aminophen (NORCO) 5-325 MG Tablet Take 1 Tab by mouth every 4 hours. 09/28/2019 0 levoFLOXacin (LEVAQUIN) 500 MG Tablet Take 1 Tab by mouth daily for 7 days. 7 Tab 10/01/2019 0 OMEPRAZOLE PO Take 20 mg by mouth. 1 predniSONE (DELTASONE) 1 MG Tablet Take 1 Tab by mouth daily. 90 Tab 3 09/05/2019 1 documented as of this encounter ED Notes * Lisy Connor RN - 10/01/2019 11:35 AM CDT Patient discharged. Discharge instructions and patient educational material reviewed with patient; questions and concerns addressed; patient verbalizes understanding, using teach back. Patient was given 1 prescription. Patient discharged per ambulatory mode with no distress noted. as responsible republican. SL D/C'ed with Ruperto cath intact. * Dewey Dinero MD - 10/01/2019 10:09 AM CDT Chief Complaint Patient presents with ??? Cough Patient is a 29-year-old female who presents emergency room complaining of cough. She states he hashad this cough for the past 5 days. She has been to the ER at [facility] has well as [facility] this a.m.. She has been coughing up yellowish sputum that seems to be worse when she layson her back. She also complains of generalized body aches. She had a Covid swab done this a.m. which is now pending. She has had fevers high as 102. She has had recent lab work. Patient states she has underlying lupus and is scheduled for chemotherapy to treat this this coming week. No current facility-administered medications for this encounter. [...] by mouth daily. 90 Tab 3 ??? levoFLOXacin (LEVAQUIN) 500 MG Tablet Take 1 Tab by mouth daily for 7 days. 7 Tab 0 ??? OMEPRAZOLE PO Take 20 mg [...] file Gets together: Not on file Attends yazidi service: Not on file Active member of [...] History Narrative ??? Not on file BP 137/79 Pulse 81 Temp 97.5 ??F (36.4 ??C) (Temporal) Resp 18 Ht 5' 3 (1.6 m) Wt 165 lb(74.8 kg) LMP 09/15/2019 SpO2 100% BMI 29.23 kg/m?? Review of Systems Constitutional: Positive for activity change, fatigue and fever. Negative for appetite change and chills. HENT: Negative for congestion, ear pain, rhinorrhea, sore throat and trouble swallowing. Eyes: Negative for pain and visual disturbance. Respiratory: Positive for cough. Negative for shortness of breath and wheezing. Cardiovascular: Positive for chest pain. Gastrointestinal: Negative for abdominal pain, diarrhea, nausea and vomiting. Genitourinary: Negative for difficulty urinating and dysuria. Musculoskeletal: Negative for arthralgias and back pain. [...] ear normal. Mouth/Throat: Pharynx: Posterior oropharyngeal erythema (Mild) present. Eyes: Conjunctiva/sclera: Conjunctivae normal. Pupils: Pupils are [...] or rebound. Musculoskeletal: Normal range of motion. Lymphadenopathy: Cervical: No cervical adenopathy. Skin: General: Skin is warm and dry. Neurological: Mental Status: She is alert and oriented to person, place, and time. Cranial Nerves: No cranial nerve deficit. Procedures Imaging Results XR CHEST 2 VIEWS (Final result) Result time 10/01/19 10:33:33 Final result by Huseyin Robin MD (10/01/19 10:33:33) Impression: IMPRESSION: Mild peribronchial inflammatory changes suspected at the bases greatest on the right. Narrative: EXAM DESCRIPTION: XR CHEST 2 VIEWS REASON FOR STUDY: Productive cough and generalized body aches for 6 days, asthma, smoker TECHNIQUE: Two views COMPARISON: 08/28/2019 FINDINGS: Heart size and vascularity appear normal. Aortic arch well-defined on the left. Lungs are well expanded without dense consolidations, effusions or pneumothorax. Interstitial densities and mild peribronchial thickening both infrahilar regions greatest on the right may indicate mild inflammatory change. THIS IS AN ELECTRONICALLY VERIFIED FINAL REPORT 10/01/2019 10:30 AM - Electronically signed by Huseyin Robin M.D. RB: REEMA Report ID: [id number] Reading Location: [address] Number of Diagnoses or Management Options Amount and/or Complexity of Data Reviewed Tests in the radiology section of CPT??: ordered and reviewed Decide to obtain previous medical records or to obtain history from someone other than the patient:yes Review and summarize past medical records: yes Independent visualization of images, tracings, or specimens: yes Risk of Complications, Morbidity, and/or Mortality Presenting problems: moderate Diagnostic procedures: low Management options: low Patient Progress Patient progress: stable Reviewed: previous chart, nursing note and vitals Interpretation: labs and x-ray Clinical Impression 1. Acute bronchitis Patient presents to emergency room with cough. She has been COVID tested already this morning and awaiting those results. I did chest x-ray which revealed some peribronchial thickening consistent with bronchitis. Place her on a prescription of Levaquin and she can follow-up with her regular doctor for recheck. The patient remained stable throughout their ED [...] for follow up. New Medications: New Prescriptions LEVOFLOXACIN (LEVAQUIN) 500 MG TABLET Take 1 Tab by mouth daily for 7 days. I have advised the patient to follow-up with: Gayla Barker, CORPORATE LOGISTICS MANAGER, CASTER INVESTMENT CASTING [address] [place] [address] In 2 days For recheck of today's problem, As needed Dispostion: Discharge * NoelleNicole walton RN - 10/01/2019 9:35 AM CDT Patient presents ambulatory to triage with complaints of generalized body aches and productive cough onset this past Sunday. States that she was seen at [facility] on 09/27 for same symptoms and prescribed [place] for body aches in which she last took at 2000 last night. States that she is coughing up thick yellow sputum. Had fever as high as 102. Afebrile at 97.5. Tested for COVID at [facility] this morning. States all she wants is a chest Xray. documented in this encounter Plan of Treatment Not on file documented as of this encounter Procedures Procedure Name Priority Date/Time Associated Diagnosis Comments XR CHEST 2 VIEWS STAT 10/01/2019 10:1 7 AM CDT documented in this encounter Results * XR CHEST 2 VIEWS (10/01/2019 10:17 AM CDT) Anatomical Region Laterality Modality Chest N/A Digital Radiogra phy 10/01/2019 10:3 0 AM CDT Impressions 10/01/2019 10:33 AM CDT IMPRESSION: ?? Mild peribronchial inflammatory changes suspected at the bases greatest on the right. Narrative 10/01/2019 10:33 AM CDT EXAM DESCRIPTION: ?? XR CHEST 2 VIEWS REASON FOR STUDY: ?? Productive cough and generalized body aches for 6 days, asthma, smoker TECHNIQUE: ?? Two views COMPARISON: ?? 08/28/2019 FINDINGS: ?? Heart size and vascularity appear normal. ??Aortic arch well-defined on the left. Lungs are well expanded without dense consolidations, effusions or pneumothorax. Interstitial densities and mild peribronchial thickening both infrahilar regions greatest on the right may indicate mild inflammatory change. THIS IS AN ELECTRONICALLY VERIFIED FINAL REPORT 10/01/2019 10:30 AM - Electronically signed by Huseyin Robin M.D. RB: REEMA D: ??10/01/2019 10:30 AM T: ??10/01/2019 10:30 AM Report ID: [id number] Reading Location: ??[id number] Procedure Note Huseyin Robin MD - 10/01/2019 EXAM DESCRIPTION: XR CHEST 2 VIEWS REASON FOR STUDY: Productive cough and generalized body aches for 6 days, asthma, smoker TECHNIQUE: Two views COMPARISON: 08/28/2019 FINDINGS: Heart size and vascularity appear normal. Aortic arch well-defined on the left. Lungs are well expanded without dense consolidations, effusions or pneumothorax. Interstitial densities and mild peribronchial thickening both infrahilar regions greatest on the right may indicate mild inflammatory change. THIS IS AN ELECTRONICALLY VERIFIED FINAL REPORT 10/01/2019 10:30 AM - Electronically signed by Huseyin Robin M.D. RB: REEMA Report ID: [id number] Reading Location: [id number] IMPRESSION: Mild peribronchial inflammatory changes suspected at the bases greatest on the right. Dewey Dinero MD IMG DIAGNOSTIC ORDERABLES Final Result documented in this encounter Visit Diagnoses Diagnosis Acute bronchitis- Primary documented in this encounter Additional Health Concerns Infection Onset Date Last Indicated Resolved Time COVID - 19 10/01/2019 10/01/2019 10/04/2019 2:42 AM CDT Assessment Noted Time PHQ-9 Depression Total Score: 0 03/25/19 10:00 AM GYM TEACHER documented as of this encounter Care Teams Healthcare Business Analyst Relationship Specialty Start Date End Date Gayla Barker, SSRS REPORT DEVELOPER, CASTER INVESTMENT CASTING [address] [place] [address] PCP - General Advanced Practice Nurse 03/25/19 Ct, [facility] Home [facility] [place] [facility] 09/03/19 documented as of this encounter
--- OUTSIDE RECORDS SUMMARY | 2024-02-24 19:46 | XMS_ITS | Encounter Summary ---
Author Organization [facility] Address [address] [facility] [place] [address] Phone Care Team Providers Care Lining Layer Name Role Phone Gayla Barker APRN, HARSHA Primary Care Provider Ct, Acute Covid At Home Care Unavailable Marianela vailable Reason for Visit * Reason Onset Date Comments COVID-19 10/19/2019 test results Encounter Details Date Type Department Care Team (Late st Contact Info) Description 10/19/2019 Telephone [facility] Digital Contact [facility] [address] [place] [id number] Gayla Barker APRN, WAGE ADJUSTER [address] [place] [address] COVID-19 (test results) Social History Tobacco Use Types Packs/Day Years [...] on file Legal Sex Female 10:27 AM 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 Yes 10/17/2019 9:02 PM CDT documented as of this encounter Miscellaneous Notes * Telephone Encounter - Iris Pepe RN - 10/19/2019 6:38 AM CDT Patient calling to see if COVID-19 test results available yet. Patient informed that test results are still pending at this time. Patient verbalized understanding. documented in this encounter Plan of Treatment Not on file documented as of this encounter Visit Diagnoses Not on filedocumented in this encounter Additional Health Concerns Infection Onset Date Last Indicated Resolved Time COVID - 19 10/17/2019 10/18/2019 10/22/2019 3:33 PM CDT Assessment Noted Time PHQ-9 Depression Total Score: 0 03/25/19 10:00 AM JORDAN WORKER documented as of this encounter Care Teams Lining Layer Relationship Specialty Start Date End Date Gayla Barker, ARCHEOLOGIST, WAGE ADJUSTER [address] [place] [address] PCP - General Advanced Practice Nurse 03/25/19 Ct, [facility] Cov[facility] Home [facility] [place] [facility] 09/03/19 documented as of this encounter
--- OUTSIDE RECORDS SUMMARY | 2024-02-24 19:46 | XMS_ITS | Encounter Summary ---
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
--- OUTSIDE RECORDS SUMMARY | 2024-02-24 19:46 | XMS_ITS | Encounter Summary ---
Author Organization [facility] Address [address] [place] [address] Phone Care Team Providers Care Assembler Filters Name Role Phone Gayla Barker APRN, CNP Primary Care Provider Ct, [facility] Unavailable Marianela vailable Reason for Visit * Reason Comments ED Follow-up talk about med miner e Dizziness Encounter Details Date Type Department Care Team (Late st Contact Info) Description 11/12/2019 4:00 PM CDT Telemedicine [facility] - Primary Care - [place] [address] [place] [address] Gayla Barker APRN, CNP [address] [place] [address] Systemic lupus erythematosus, unspecified SLE type, unspecified organ involvement status (HCC) (Primary Dx); Dizziness Social History Tobacco Use Types Packs/Day Years [...] on file Legal Sex Female 10:27 AM MATERIAL REQUISITIONER Gender Identity Not on file Sexual Orientation Not on file COVID-19 Exposure Response Date Recorded In the last month, have you been in contact with someone who was confirmed or suspected to have Coronavirus / COVID-19? No / Unsure 02/03/2020 12:59 PM MATERIAL REQUISITIONER documented as of this encounter Last Filed Vital Signs Vital Sign Reading Time Taken Comments Blood Pressure - - Pulse - - Temperature - - Respiratory Rate - - Oxygen Saturation - - Inhaled Oxygen Concentration - - Weight - - Height 160 cm (5' 3 ) 11/12/2019 4:01 PM CDT Body Mass Index - - documented in this encounter Patient Instructions * Patient Instructions* Gayla Barker APN, CNP - 11/12/2019 4:00 PM CDT Increase alprazolam to 0.5mg 2x/day ENT Referral Labs ordered documented in this encounter Progress Notes * Dimple Junior RMA - 11/12/2019 4:00 PM CDT Carito Rausch is on video visit for ED Follow-up (talk about med change) and Dizziness . Medications and allergies reconciled with Carito Rausch. * Gayla Barker APN, CNP - 11/12/2019 4:00 PM CDT Subjective: Patient was assessed via online video for a duration of 17 minutes.?? Patient verbally consented for this service to be performed and billed. HPI: Carito Rausch is a 29 y.o. female evaluated today for increased anxiety due to starting newinfusion. She is also complaining of dizziness. She is requesting repeat lupus labs because intelligence chief is wanting to change her from prednisone to hydrocortisone. She states that they found that she is not producing any cortisol on her own. Current Outpatient Medications: ??? ALPRAZolam (XANAX) 0.25 MG Tablet??? Belimumab (Benlysta) 200 MG/ML Solution Auto-injector??? ferrous sulfate 325 (65 Fe) MG Tablet??? hydroxychloroquine (PLAQUENIL) 200 MG Tablet??? OMEPRAZOLE PO??? ondansetron (Zofran) 4 MG Tablet??? predniSONE (DELTASONE) 1 MGTablet??? predniSONE (DELTASONE) 5 MG Tablet The past medical, surgical, family and social histories, and allergies were reviewed and updated asneeded. ROS: All 14 systems reviewed and negative except as mentioned in the HPI. Plan: (M32.9) Systemic lupus erythematosus, unspecified SLE type, unspecified organ involvement status (HCC) (primary encounter diagnosis) Plan: C3 COMPLEMENT GLOBULIN B-1C, C4 COMPLEMENT, ANTI DOUBLE STRAND DNA (DS DNA) ANTIBODY, C-REACTIVE PROTEIN (CRP) HIGH SENSITIVE, BARAK SCREEN MULTIPLEX W/REFLEX PHUONG, ERYTHROCYTE SEDIMENTATION RATE (ESR), HLA B 27, CYCLIC CITRULLINATED PEPTIDE 3 (R42) Dizziness Plan: ENT REFERRAL Follow Up: Carito was asked to follow up with as needed. Education materials sent via the patient's [facility] account. documented in this encounter Miscellaneous Notes * Addendum Note - Angela Smith CMA - 11/12/2019 4:00 PM CDTAddended by: ANGELA SMITH on: 02/09/2020 01:38 PM Modules accepted: Orders RIAL REQUISITIONER documented in this encounter Plan of Treatment Not on file documented as of this encounter Procedures Procedure Name Priority Date/Time Associated Diagnosis Comments CYCLIC CITRULLINATED PEPTIDE 3 Routine 11/13/2019 9:55 AM CDT Systemic lupus erythematosus, unspecified SLE type, unspecified organ involvement status (HCC) HLA B 27 Routine 11/13/2019 9:55 AM CDT Systemic lupus erythematosus, unspecified SLE type, unspecified organ involvement status (HCC) ANTI DOUBLE STRAND DNA (DS DNA) ANTIBODY Routine 11/13/2019 9:55 AM CDT Systemic lupus erythematosus, unspecified SLE type, unspecified organ involvement status (HCC) documented in this encounter Results * CYCLIC CITRULLINATED PEPTIDE 3 (11/13/2019 9:55 AM CDT) CCP IGG 1.1 <3.0 U/mL 11/14/2019 9:1 1 AM CDT [facility] Blood Venipuncture / Unknown 11/13/2019 9:55 AM CDT 11/13/2019 9:57 AM CDT Narrative [facility] - 11/14/2019 9:11 AM CDT Antibody testing was performed by multiplex flow immunoassay on the ZAPR platform. us Gayla Barker APRN, CNP IMMUNOLOGY ORDERABLES F inal Result Performing Organization Address City/[facility]/ZIP Co de Phone Number [facility] [address] [place] [address], [place] * HLA B 27 (11/13/2019 9:55 AM CDT) Pathologist [facility] HLA B27 Negative Negative 11/14/2019 11:15 AM CDT [facility] Blood Venipuncture / Unknown 11/13/2019 9:55 AM CDT 11/13/2019 10:35 AM CDT us Gayla Barker APRN, CNP IMMUNOLOGY ORDERABLES F inal Result Performing Organization Address City/[facility]/ZIP Co de Phone Number [facility] [address] [place] [address], [place] * ERYTHROCYTE SEDIMENTATION RATE (ESR) (11/13/2019 9:55 AM CDT) Pathologist [facility] ESR (SED RATE, ERYTHROCYTE SEDIMENTATION RATE) 16 <20 mm/h 11/13/2019 10:53 AM CDT [facility] Comment:Patients presenting with abnormally high or low RBC counts and other hemoglobinopathies could affect the results for the erythrocyte sedimentation rate (ESR). Results should be clinically correlated. Blood Venipuncture / Unknown 11/13/2019 9:55 AM CDT 11/13/2019 10:36 AM CDT us Gayla Barker APRN, CNP HEMATOLOGY ORDERABLES F inal Result Performing Organization Address City/[facility]/ZIP Co de Phone Number [facility] [address] [place] [address] * (ABNORMAL) BARAK SCREEN MULTIPLEX W/REFLEX PHUONG (11/13/2019 9:55 AM CDT) BARAK SCR MULTIPLEX Positive(A ) Negative, See comment 11/14/2019 10:23 AM CDT [facility] Blood Venipuncture / Unknown 11/13/2019 9:55 AM CDT 11/13/2019 9:57 AM CDT Narrative [facility] - 11/14/2019 10:23 AM CDT Antibody testing was performed by multiplex flow immunoassay on the ZAPR platform. us Gayla Barker APRN, CNP IMMUNOLOGY ORDERABLES F inal Result Performing Organization Address [facility] Co de Phone Number [facility] [address] [place] [address], [place] * C-REACTIVE PROTEIN (CRP) HIGH SENSITIVE (11/13/2019 9:55 AM CDT) Pathologist [facility] CRP ULTRAQUANT 4.11 <5.00 mg/L 11/13/2019 9:05 PM CDT [facility] Blood Venipuncture / Unknown 11/13/2019 9:55 AM CDT 11/13/2019 10:37 AM CDT us Gayla Barker APRN, CNP CHEMISTRY ORDERABLES Fi nal Result Performing Organization Address City/[facility]/ZIP Co de Phone Number [facility] [address] [place] [address], [place] * (ABNORMAL) ANTI DOUBLE STRAND DNA (DS DNA) ANTIBODY (11/13/2019 9:55 AM CDT) DNA AB, DOUBLE STRAND 22(H) <5 IU/mL 11/14/2019 9:10 AM CDT [facility] Blood Venipuncture / Unknown 11/13/2019 9:55 AM CDT 11/13/2019 9:57 AM CDT Narrative [facility] - 11/14/2019 9:10 AM CDT <= 4 Negative 5-9 Indeterminate >= 10 Positive Antibody testing was performed by multiplex flow immunoassay on the ZAPR platform. us Gayla Barker APRN, CNP IMMUNOLOGY ORDERABLES F inal Result Performing Organization Address [facility] Co de Phone Number [facility] [address] [place] [address], [place] * C4 COMPLEMENT (11/13/2019 9:55 AM CDT) C4 COMPLEMENT 18 15 - 57 mg/dL 11/13/2019 9:10 PM CDT [facility] Blood Venipuncture / Unknown 11/13/2019 9:55 AM CDT 11/13/2019 10:37 AM CDT us Gayla Barker APRN, CNP CHEMISTRY ORDERABLES Fi nal Result Performing Organization Address [facility] Co de Phone Number [facility] [address] [place] [address], [place] * C3 COMPLEMENT GLOBULIN B-1C (11/13/2019 9:55 AM CDT) C3 COMPLEMENT 117 83 - 193 mg/dL 11/13/2019 9:10 PM CDT [facility] Blood Venipuncture / Unknown 11/13/2019 9:55 AM CDT 11/13/2019 10:37 AM CDT us Gayla Barker APRN, CNP CHEMISTRY ORDERABLES Fi nal Result Performing Organization Address [facility] Co de Phone Number [facility] [address] [place] [address], [place] documented in this encounter Visit Diagnoses Diagnosis Systemic lupus erythematosus, unspecified SLE type, unspecified organ involvement status (HCC)- Primary Dizziness Dizziness and giddiness documented in this encounter Additional Health Concerns Infection Onset Date Last Indicated Resolved Time COVID - 11/13/2019 11/13/2019 11/16/2019 12:0 8 AM CDT COVID - 19 11/25/2019 12/09/2019 12/11/2019 7:53 AM CDT COVID - 19 12/25/2019 12/26/2019 12/28/2019 6:29 AM MATERIAL REQUISITIONER COVID - 01/16/2020 01/17/2020 01/23/2020 12:5 2 PM MATERIAL REQUISITIONER Assessment Noted Time PHQ-9 Depression Total Score: 0 03/25/19 10:00 AM MATERIAL REQUISITIONER documented as of this encounter Care Teams Assembler Filters Relationship Specialty Start Date End Date Gayla Barker, FINAL APPLICATION REVIEWER, STOCKROOM WORKER [address] [place] [address] PCP - General Advanced Practice Nurse 03/25/19 Ct, [facility] [place] [employer] 09/03/19 documented as of this encounter
--- OUTSIDE RECORDS SUMMARY | 2024-02-24 19:46 | XMS_ITS | Encounter Summary ---
Author Organization [facility] Address [address] [facility] [place] [address] Phone Care Team Providers Care Information Systems Technician Name Role Phone Gayla Barker APRN, FACULTY CRIMINAL JUSTICE Primary Care Provider Ct, Acute [facility] Home [facility] Unavailable Marianela vailable Reason for Visit * Reason Onset Date Comments Medication Management 11/05/2019 Encounter Details Date Type Department Care Team (Late st Contact Info) Description 11/05/2019 Telephone [facility] [address] [place] [address] Gayla Barker APRN, FACULTY CRIMINAL JUSTICE [address] [place] [address] Medication Management Social History Tobacco Use Types [...] on file 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 No / Unsure 11/12/2019 8:09 AM CDT documented as of this encounter Miscellaneous Notes * Telephone Encounter - Leti Gusman RN - 11/06/2019 8:29 AM CDT Patient aware this will be addressed by PCP. * Telephone Encounter - Marleni Manrique APN, CNP - 11/05/2019 2:50 PM CDT Await for PCP to return on Sunday. * Telephone Encounter - Sherry Osman RN - 11/05/2019 1:35 PM CDT S: med management. B: Pt has h/o Lupus. Says she will be getting a new medication - Benlysta - via IV infusion every 2 weeks. Had her first infusion yesterday. She was advised that one of the side effects of this medication is an increase in anxiety and depression. Pt was advised to let her pcp know to see if her meds could be adjusted. Currently has Rx for Xanax 0.25 mg twice daily prn. Pt says she takes this once daily in the AM. A: Pt asks about having lorazepam Rxd as well. Advised this is in the same drug class as the Xanax and she could not be prescribed both meds. Has tried Lexapro and venlafaxine in the past. Lexapro caused seizures. Venlafaxine caused itching. Pt says she did receive lorazepam during a hospital stay at one time and it really relaxed me and I went right to sleep . Says she has noted that the Xanax is not as effective for her as it used to be. Pt also expresses that she has trouble sleeping and wonders about something that will help with this as well. Tells me that she takes Nyquil and Benadryl regularly . Goes to sleep between [id number]. Has a hard time falling asleep. Usually wakes again around [id number] and struggles to get back to sleep. Typically is up for the day by 0630. Pt says she has taken hydroxyzine 25 mg in the past. Has an Rx written on 08/20/19 by a doctor at [facility]. They were not sure if she was having an allergic reaction or an anxiety attack, but pt says it really chilled me out when she was getting this during her hospital stay. She wonders about taking hydroxyzine at bedtime and sticking with the Xanax in the AM? Her paperwork says she was given trazodone 150 mg nightly as well. Thinks they only gave her that while she was in the hospital - did not receive an Rx for that. She wants to be sure that nothing she takes will interfere with the new medication. We discussed good sleep hygiene measures and she says she is already doing all of these things. Has also tried melatonin 6 mg nightly in the past without much help. R: Please advise. documented in this encounter Plan of Treatment Not on file documented as of this encounter Visit Diagnoses Not on filedocumented in this encounter Additional Health Concerns Assessment Noted Time PHQ-9 Depression Total Score: 0 03/25/19 20 10:00 AM SLOT TECHNICIAN documented as of this encounter Care Teams Information Systems Technician Relationship Specialty Start Date End Date Gayla Barker, FELT HAT POUNCING OPERATOR HAND, FACULTY CRIMINAL JUSTICE [address] [place] [address] PCP - General Advanced Practice Nurse 03/25/19 Ct, [facility] [place] [employer] [place] 09/03/19 documented as of this encounter
--- OUTSIDE RECORDS SUMMARY | 2024-02-24 19:46 | XMS_ITS | Encounter Summary ---
Author Organization [facility] Address [address] 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 No / Unsure 11/11/2019 5:32 PM CDT documented as of this encounter Last Filed Vital Signs Vital Sign Reading Time Taken Comments Blood Pressure 143/85 11/11/2019 5:32 PM CDT Pulse 93 11/11/2019 5:32 PM CDT Temperature 36 ??C (96.8 ??F) 11/11/2019 5:31 PM CDT Respiratory Rate 22 11/11/2019 5:32 PM CDT Oxygen Saturation 100% 11/11/2019 5:32 PM CDT Inhaled Oxygen Concentration - - Weight 74.8 kg (165 lb) 11/11/2019 5:32 PM CDT Height 160 cm (5' 3 ) 11/11/2019 5:32 PM CDT Body Mass Index 29.23 11/11/2019 5:32 PM CDT documented in this encounter Medications at Time of Discharge hydroxychloroquin e (PLAQUENIL) 200 MG Tablet Take 1 Tab by mouth daily. 90 Tab 3 05/09/2019 ALPRAZolam (XANAX) 0.25 MG Tablet Take 1 Tab by mouth 2 times daily as needed for Anxiety. 30 Tab 10/21/2019 11/13/2019 Belimumab (Benlysta) 200 MG/ML Solution Auto-injector 11/04/2019 02/02/2021 docusate sodium (Stool Softener) 100 MG Tablet Take 1 Tab by mouth daily for 30 days. 30 Tab 11 10/28/2019 11/12/2019 ferrous sulfate 325 (65 Fe) MG Tablet Take 1 Tab by mouth daily. 30 Tab 11 10/28/2019 02/02/2021 OMEPRAZOLE PO Take 20 mg by mouth. 02/02/2021 ondansetron (Zofran) 4 MG Tablet Take 4 mg by mouth every 8 hours as needed for Nausea - 1st line. 02/02/2021 predniSONE (DELTASONE) 1 MG Tablet Take 1 Tab by mouth daily. 90 Tab 3 09/05/2019 04/07/2020 predniSONE (DELTASONE) 5 MG Tablet Take 5 mg by mouth. 11/11/2019 11/10/2020 documented as of this encounter ED Notes * Najma Alvarez, RN - 11/11/2019 6:21 PM CDT Patient approached the desk and told this nurse that her PCP just called and told her that she is able to get her blood work done tomorrow. Patient left without being seen. * Najma Alvarez RN - 11/11/2019 6:02 PM CDT Patient to ED room 11-2 with c/o dizziness since this morning. Patient reports hx of Lupus for which she receives chemo at [facility], and she states her infusion was changed. First does of IV Benlysta was given on 11/04/2019 and she has been more dizzy than usual since. I'm always dizzy. Denies falls, vision changes, pupils PERRLA. A&O x4. 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 Patient is requesting lab work (CBC, CMP, sed rate, compliment C3 & C4, double-stranded DNA) be drawn so that her physician can see it in her MyChart tomorrow. Awaiting provider. * Tran Quiñonez RN - 11/11/2019 5:32 PM CDT PT ambulatory to triage with c/o intermittent dizziness. PT states she recently started infusions for her Lupus on 11/04/2019, and since then, she's been having these symptoms. States she was seen at [facility] ER recently for the same complaint, but the nurse was a total bitch, so I just left. Denies anyother complaints. PT is A&O x 4. Speech clear. Respirations even and non-labored. No signs of di stress noted. documented in this encounter Plan of Treatment Not on file documented as of this encounter Visit Diagnoses Not on filedocumented in this encounter Additional Health Concerns Assessment Noted Time PHQ-9 Depression Total Score: 0 03/25/19 20 10:00 AM J2EE ENGINEER documented as of this encounter Care Teams Yoker Relationship Specialty Start Date End Date Gayla Barker, SALVAGE CLERK, HIDE CURER [address] [place] [address] PCP - General Advanced Practice Nurse 03/25/19 Ct, [facility] [place] [employer] [place] 09/03/19 documented as of this encounter
--- OUTSIDE RECORDS SUMMARY | 2024-02-24 19:46 | XMS_ITS | Encounter Summary ---
Author Organization [facility] Address [address] 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 Yes 09/03/2019 7:37 PM CDT documented as of this encounter Miscellaneous Notes * Telephone Encounter - Gayla Barker APN, CNP - 09/05/2019 3:13 PM CDT Order signed. * Telephone Encounter - Sara Wasserman, RN - 09/02/2019 4:13 PM CDT Patient is requesting 1 mg prednisone because patient is weaning off the prednisone. Please advise documented in this encounter Plan of Treatment Not on file documented as of this encounter Visit Diagnoses Not on filedocumented in this encounter Additional Health Concerns Infection Onset Date Last Indicated Resolved Time COVID - 19 09/03/2019 09/04/2019 09/09/2019 11:2 5 AM CDT Assessment Noted Time PHQ-9 Depression Total Score: 0 03/25/19 20 10:00 AM PAINT CREW SUPERVISOR documented as of this encounter Care Teams Diet Aide Relationship Specialty Start Date End Date Gayla Barker APRN, CNP [address] [place] [address] PCP - General Advanced Practice Nurse 03/25/19 Ct, [facility] [place] 09/03/19 documented as of this encounter
--- OUTSIDE RECORDS SUMMARY | 2024-02-24 19:46 | XMS_ITS | Encounter Summary ---
Author Organization [facility] Address [address] [place] [address] Phone Care Team Providers Care Sexual Health Physician Name Role Phone Gayla Barker APRN, DIRECTOR OF STUDENT AID Primary Care Provider Ct, Acute Covid At Home Care Unavailable Marianela vailable Reason for Visit * Reason Comments COVID-19 Encounter Details Date Type Department Care Team (Late st Contact Info) Description 10/18/2019 9:10 AM CDT Clinical Support [facility] [address] [place] [address] Testing, [facility] Nurse [place] Fatigue, unspecified type; Fever, unspecified fever cause; Close exposure to COVID-19 virus Discharge Disposition: Discharged to [...] file Legal Sex Female 10:27 AM DIRECTOR LOAN Gender Identity Not on file Sexual Orientation Not on file COVID-19 Exposure Response Date Recorded In the last month, have you been in contact with someone who was confirmed or suspected to have Coronavirus / COVID-19? Yes 10/17/2019 9:02 PM CDT documented as of this encounter Progress Notes * Khushbu Watters RN - 10/18/2019 9:10 AM CDT Patient presents to [facility] care in a car for drive up nasopharyngeal COVID 19 swab. right nare swabbed with no difficulty and patient tolerated well. Written instruction given on care at home, home isolation, and symptoms that would require an ER visit. Specimen sent to [facility] documented in this encounter Plan of Treatment Not on file documented as of this encounter Procedures Procedure Name Priority Date/Time Associated Diagnosis Comments SARS-COV-2 BY MOLECULAR Routine 10/18/2019 8:52 AM CDT Fatigue, unspecified type Fever, unspecified fever cause Close exposure to COVID-19 virus documented in this encounter Results * SARS-COV-2 BY PCR (10/18/2019 8:52 AM CDT) SARSCOV2 NOT DETECTED (Reference Range for this test is Not Detected) 10/20/2019 1:18 PM CDT [facility] Swab NASOPHARYNGEAL STRUCTURE / Unknown Non-Phlebotomy Collection / Unknown 10/18/2019 8:52 AM CDT 10/18/2019 8:52 AM CDT Narrative [facility] - 10/20/2019 1:18 PM CDT Authorized Fact Sheets about this test for providers and patients are available at: https://www.fda.gov/medical-devices/fgwgthobs-jyqumjlizq-pujvkky-devices/emergen -us e-authorizations us Cassandra Rao APRN, [facility] MICROBI[employer]Y - GENERAL ORDERABLES Final Result [facility] [address] [place] [address], documented in this encounter Visit Diagnoses Diagnosis Fatigue, unspecified type Fever, unspecified fever cause Close exposure to COVID-19 virus documented in this encounter Additional Health Concerns Infection Onset Date Last Indicated Resolved Time COVID - 19 10/17/2019 10/18/2019 10/22/2019 3:33 PM CDT Assessment Noted Time PHQ-9 Depression Total Score: 0 03/25/19 10:00 AM DIRECTOR LOAN documented as of this encounter Care Teams Sexual Health Physician Relationship Specialty Start Date End Date Gayla Barker, TOP SCREW, DIRECTOR OF STUDENT AID [address] [place] [address] PCP - General Advanced Practice Nurse 03/25/19 Ct, [facility] [place] [employer] [place] 09/03/19 documented as of this encounter
--- OUTSIDE RECORDS SUMMARY | 2024-02-24 19:46 | XMS_ITS | Encounter Summary ---
Author Organization [facility] Address [address] [place] [address] Phone Care Team Providers Care Office Cashier Name Role Phone Gayla Barker APRN, ELECTRICAL ELECTRONICS ENGINEER Primary Care Provider Ct, [facility] Unavailable Marianela vailable Reason for Visit * Reason Onset Date Comments COVID-19 09/02/2019 Encounter Details Date Type Department Care Team (Late st Contact Info) Description 09/02/2019 Telephone [facility] [address] [place] [address] Gayla Barker, ANNIE, ELECTRICAL ELECTRONICS ENGINEER [address] [place] [address] COVID-19 Social History Tobacco Use Types Packs/Day [...] file Legal Sex Female 10:27 AM SUPERVISOR TYPE DISK QUALITY CONTROL Gender Identity Not on file Sexual Orientation Not on file COVID-19 Exposure Response Date Recorded In the last month, have you been in contact with someone who was confirmed or suspected to have Coronavirus / COVID-19? Yes 09/03/2019 7:37 PM CDT documented as of this encounter Miscellaneous Notes * Telephone Encounter - Kristie Yee RN - 09/03/2019 11:01 PM CDT Message sent via [employer] * Telephone Encounter - Gayla Barker APN, CNP - 09/02/2019 4:27 PM CDT No I will not order any more COVID tests. It cannot be healthy to be swabbed that many times. * Telephone Encounter - Sara Wasserman RN - 09/02/2019 4:19 PM CDT Have Carito Rausch wanting another COVID test. Patient had 2 employees at work test positive and they sat at her desk. Patient is asking if PCP will order a COVID test for her. Please advise Patient has already been tested 9 times per patient, documented in this encounter Plan of Treatment Not on file documented as of this encounter Visit Diagnoses Not on filedocumented in this encounter Additional Health Concerns Infection Onset Date Last Indicated Resolved Time COVID - 19 09/03/2019 09/04/2019 09/09/2019 11:2 5 AM CDT Assessment Noted Time PHQ-9 Depression Total Score: 0 03/25/19 10:00 AM SUPERVISOR TYPE DISK QUALITY CONTROL documented as of this encounter Care Teams Office Cashier Relationship Specialty Start Date End Date Gayla Barker, ANNIE, ELECTRICAL ELECTRONICS ENGINEER [address] [place] [address] PCP - General Advanced Practice Nurse 03/25/19 Ct, [facility] [place] [facility] [place] 09/03/19 documented as of this encounter
--- OUTSIDE RECORDS SUMMARY | 2024-02-24 19:46 | XMS_ITS | Encounter Summary ---
Author Organization [facility] Care Team Providers Care Keyliner Name Role Phone Gayla Barker APRN, HARSHA Primary Care Provider Encounter Details Date Type Department Care Team (Latest Contact Info) Description 08/28/2019 Travel Social History Tobacco Use Types Packs/Day [...] file Legal Sex Female 10:27 AM MANAGER OB Gender Identity Not on file Sexual Orientation [...] Score: 0 03/25/19 20 10:00 AM MANAGER OB documented as of this encounter Care Teams Keyliner Relationship Specialty Start Date End Date Gayla Barker APRN, CHERRY PITTER [address] [place] [address] PCP - General Advanced Practice Nurse 03/25/19 documented as of this encounter
--- OUTSIDE RECORDS SUMMARY | 2024-02-24 19:46 | XMS_ITS | Encounter Summary ---
Author Organization [facility] Address [address] [place] [address] Phone Care Team Providers Care Blanking Machine Operator Name Role Phone Gayla Barker APRN, MEAT DRESSER Primary Care Provider Ct, Acute Covid At Home Care Unavailable Marianela vailable Reason for Visit * Reason Comments Cough Sore Throat Encounter Details Date Type Department Care Team (Late st Contact Info) Description 10/01/2019 9:00 AM CDT Clinical Support [facility] [address] [place] [address] [facility] Nurse [place] Cough; Sore throat; Voice hoarseness; Exposure to COVID-19 [...] on file Legal Sex Female 10:27 AM CONTROL ROOM AGENT Gender Identity Not on file Sexual Orientation Not on file COVID-19 Exposure Response Date Recorded In the last month, have you been in contact with someone who was confirmed or suspected to have Coronavirus / COVID-19? Yes 09/28/2019 5:27 PM CDT documented as of this encounter Progress Notes * Rose Mary Hinton RN - 10/01/2019 9:00 AM CDT [facility] drive up nasopharyngeal COVID 19 swab. right nare swabbed with no difficulty and patient tolerated well. Written instruction given on care at home, home isolation, and symptoms that would require an ER visit. Specimen sent to [facility] documented in this encounter Plan of Treatment Not on file documented as of this encounter Procedures Procedure Name Priority Date/Time Associated Diagnosis Comments SARS-COV-2 BY MOLECULAR Routine 10/01/2019 7:59 AM CDT Cough Sore throat Voice hoarseness Exposure to COVID-19 virus documented in this encounter Results * SARS-COV-2 BY PCR (10/01/2019 7:59 AM CDT) SARSCOV2 NOT DETECTED (Reference Range for this test is Not Detected) 10/02/2019 8:37 PM CDT [facility] Swab NASOPHARYNGEAL STRUCTURE / Unknown Non-Phlebotomy Collection / Unknown 10/01/2019 7:59 AM CDT 10/01/2019 7:59 AM CDT Narrative [facility] - 10/02/2019 8:37 PM CDT Authorized Fact Sheets about this test for providers and patients are available at: https://www.fda.gov/medical-devices/ysxxjtwfq-fnbhzsjebb-vwfjcoc-devices/emergen -us e-authorizations us Katie Black APRN, HARSHA MICROBIOLOGY - GENER AL ORDERABLES Final Result [facility] [address] [place] [address], [place] documented in this encounter Visit Diagnoses Diagnosis Cough Sore throat Acute pharyngitis Voice hoarseness Dysphonia Exposure to COVID-19 virus documented in this encounter Additional Health Concerns Infection Onset Date Last Indicated Resolved Time COVID - 19 10/01/2019 10/01/2019 10/04/2019 2:42 AM CDT Assessment Noted Time PHQ-9 Depression Total Score: 0 03/25/19 10:00 AM CONTROL ROOM AGENT documented as of this encounter Care Teams Blanking Machine Operator Relationship Specialty Start Date End Date Gayla Barker, MACROECONOMICS PROFESSOR, MEAT DRESSER [address] [place] [address] PCP - General Advanced Practice Nurse 03/25/19 Ct, [facility] [place] 09/03/19 documented as of this encounter
--- OUTSIDE RECORDS SUMMARY | 2024-02-24 19:46 | XMS_ITS | Encounter Summary ---
Author Organization [facility] Address [address] [facility] [place] [address] Phone Care Team Providers Care Vice Squad Police Officer Name Role Phone Gayla Barker APRN, PANEL CUTTER Primary Care Provider Ct, Acute Covid At Home Care Unavailable Marianela vailable Reason for Visit * Reason Onset Date Comments Other 09/04/2019 Patient does not want to participate in the Acute Covid Home Monitoring Program Encounter Details Date Type Department Care Team (Late st Contact Info) Description 09/04/2019 Telephone [facility] [address] [place] [address] Ct, [facility] [place] Other (Patient does not want to participate in the Acute Covid Home Monitoring Program) Social History Tobacco Use Types Packs/Day Years [...] on file 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 Yes 09/03/2019 7:37 PM CDT documented as of this encounter Miscellaneous Notes * Telephone Encounter - Katy Peralta RN - 09/04/2019 11:12 AM CDT Patient requesting to discontinue monitoring program because she thought she would be able to keep the monitoring equipment. Patient refised the fielder's delivery. * Telephone Encounter - Amanda Richmond APN, CNP - 09/04/2019 10:56 AM CDT Noted. Ok to DC from program. * Telephone Encounter - Katy Peralta RN - 09/04/2019 10:20 AM CDT [facility] Fielder calling to report that the patient does not want to participate in the [facility] program because she thought she could keep the equipment. documented in this encounter Plan of Treatment Not on file documented as of this encounter Visit Diagnoses Not on filedocumented in this encounter Additional Health Concerns Infection Onset Date Last Indicated Resolved Time COVID - 19 09/03/2019 09/04/2019 09/09/2019 11:2 5 AM CDT Assessment Noted Time PHQ-9 Depression Total Score: 0 03/25/19 10:00 AM EDITOR HOUSE ORGAN documented as of this encounter Care Teams Vice Squad Police Officer Relationship Specialty Start Date End Date Gayla Barker, NBA PLAYER, PANEL CUTTER [address] [place] [address] PCP - General Advanced Practice Nurse 03/25/19 Ct, [facility] [place] 09/03/19 documented as of this encounter
--- OUTSIDE RECORDS SUMMARY | 2024-02-24 19:47 | XMS_ITS | Encounter Summary ---
Author Organization [facility] Address [address] [facility] [place] [address] Phone Care Team Providers Care Squeezer Operator Name Role Phone Gayla Barker APRN, HARSHA Primary Care Provider Reason for Visit * Reason Onset Date Comments COVID-19 08/19/2019 Chills 08/19/2019 Generalized Body Aches 08/19/2019 Encounter Details Date Type Department Care Team (Late st Contact Info) Description 08/19/2019 Nurse Triage [facility] [address] [place] [id number] Gayla Barker APRN, EDITOR FARM JOURNAL [address] [place] [address] COVID-19; Chills; Generalized Body Aches Social History Tobacco Use Types Packs/Day Years Used Date Smoking Tobacco: Former Smokeless Tobacco: Never Alcohol Use Standard Drinks/Week Comments Not Currently [...] file Legal Sex Female 10:27 AM MANAGER GENERAL Gender Identity Not on file Sexual Orientation Not on file COVID-19 Exposure Response Date Recorded In the last month, have you been in contact with someone who was confirmed or suspected to have Coronavirus / COVID-19? Yes 08/20/2019 7:17 AM CDT documented as of this encounter Miscellaneous Notes * Telephone Encounter - Sydney Cornelius RN - 08/19/2019 9:51 PM CDT Images from the original note were not included. Travel Screening Question Response Do you have any of the following symptoms? Vomiting;Diarrhea In the last month, have you been in contact with someone who was confirmed or suspected to have Coronavirus / COVID-19? Yes Have you traveled internationally in the last month? No Travel History Travel since 07/19/19 No documented travel since 07/19/19 Screening Results: NO COVID-19 LIKE SYMPTOMS SITUATION: Patient calling with red itchy eye, vomiting/ Diarrhea BACKGROUND: Patient was treated in the ER today for trichomonas and was given multiple antibiotics and now having eye itching. Patient also has a history of Lupus. ASSESSMENT: Symptom Description / Location: red and irritated eye, some green drainage, denies shortness of breath, denies difficulty swallowing, sores in mouth , body aches, vomiting x2 today and some diarrhea Pain (0-10): denies pain Temp: denies temperature Treatment / Response: treated at ER with Zithromax, flagyl, rocephin , prednisone for STD RECOMMENDATION: Reviewed home care and told patient to follow up with provider in am. Reason for Disposition ??? Patient is worried about a sexually transmitted disease (STD) ??? Weak immune system (e.g., HIV positive, cancer chemo, splenectomy, organ transplant, chronic steroids) Protocols used: STD EXPOSURE AND [id number], EYE - PUS OR [id number] documented in this encounter Plan of Treatment Not on file documented as of this encounter Visit Diagnoses Not on filedocumented in this encounter Additional Health Concerns Assessment Noted Time PHQ-9 Depression Total Score: 0 03/25/19 10:00 AM MANAGER GENERAL documented as of this encounter Care Teams Squeezer Operator Relationship Specialty Start Date End Date Gayla Barker, LEAD ATHLETE, EDITOR FARM JOURNAL [address] [place] [address] PCP - General Advanced Practice Nurse 03/25/19 documented as of this encounter
--- OUTSIDE RECORDS SUMMARY | 2024-02-24 19:47 | XMS_ITS | Encounter Summary ---
Author Organization [email or web address] Care Team Providers Care Part Maker Name Role Phone Gayla Barker APRN, CNP Primary Care Provider Encounter Details Date Type Department Care Team (Latest Contact Info) Description 07/24/2019 Travel Social History Tobacco Use Types Packs/Day [...] on file Legal Sex Female 10:27 AM EVENTS DIRECTOR Gender Identity Not on file Sexual Orientation Not on file COVID-19 Exposure Response Date Recorded In the last month, have you been in contact with someone who was confirmed or suspected to have Coronavirus / COVID-19? Yes 07/24/2019 11:41 AM CDT documented as of this encounter Plan of Treatment Not on file documented as of this encounter Visit Diagnoses Not on filedocumented in this encounter Additional Health Concerns Assessment Noted Time PHQ-9 Depression Total Score: 0 03/25/19 20 10:00 AM EVENTS DIRECTOR documented as of this encounter Care Teams Part Maker Relationship Specialty Start Date End Date Gayla Barker APRN, CNP [address] [place] [address] PCP - General Advanced Practice Nurse 03/25/19 documented as of this encounter
--- OUTSIDE RECORDS SUMMARY | 2024-02-24 19:47 | XMS_ITS | Encounter Summary ---
Author Organization [facility] Care Team Providers Care Ocean Rescue Lieutenant Name Role Phone Gayla Barker APRN, CNP Primary Care Provider Encounter Details Date Type Department Care Team (Latest Contact Info) Description 08/19/2019 Travel Social History Tobacco Use Types Packs/Day [...] on file Legal Sex Female 10:27 AM SECURITY DEVELOPER Gender Identity Not on file Sexual Orientation Not on file COVID-19 Exposure Response Date Recorded In the last month, have you been in contact with someone who was confirmed or suspected to have Coronavirus / COVID-19? Yes 08/19/2019 6:06 AM CDT documented as of this encounter Plan of Treatment Not on file documented as of this encounter Visit Diagnoses Not on filedocumented in this encounter Additional Health Concerns Assessment Noted Time PHQ-9 Depression Total Score: 0 03/25/19 20 10:00 AM SECURITY DEVELOPER documented as of this encounter Care Teams Ocean Rescue Lieutenant Relationship Specialty Start Date End Date Gayla Barker APRN, CNP [address] [place] [address] PCP - General Advanced Practice Nurse 03/25/19 documented as of this encounter
--- OUTSIDE RECORDS SUMMARY | 2024-02-24 19:47 | XMS_ITS | Encounter Summary ---
Author Organization [facility] Address [address] [place] [address] Phone Care Team Providers Care Bombsight Specialist Name Role Phone Gayla Barker APRN, HARSHA Primary Care Provider Reason for Visit * Reason Comments Medication Refill Encounter Details Date Type Department Care Team (Late st Contact Info) Description 08/17/2019 Refill [facility] [address] [place] [address] Gayla Barker APRN, FORM GRADER OPERATOR [address] [place] [address] Medication Refill Social History Tobacco [...] on file Legal Sex Female 10:27 AM ANESTHESIA TECH Gender Identity Not on file Sexual Orientation Not on file COVID-19 Exposure Response Date Recorded In the last month, have you been in contact with someone who was confirmed or suspected to have Coronavirus / COVID-19? Yes 08/19/2019 6:06 AM CDT documented as of this encounter Miscellaneous Notes * Telephone Encounter - Gayla Barker APN, CNP - 08/19/2019 7:42 AM CDT A prescription monitoring site reviewed. Medication approved. * Telephone Encounter - Gayla Patel, RN - 08/18/2019 3:20 PM CDT Requested Prescriptions Pending Prescriptions Disp Refills ALPRAZolam (XANAX) 0.25 MG Tablet [Pharmacy Med Name: ALPRAZOLAM 0.25 MG TABLET] 30 Tab 0 Sig: TAKE 1 TABLET BY MOUTH 3 TIMES DAILY NEEDED FOR ANXIETY There is no refill protocol information for this order documented in this encounter Plan of Treatment Not on file documented as of this encounter Visit Diagnoses Not on filedocumented in this encounter Additional Health Concerns Assessment Noted Time PHQ-9 Depression Total Score: 0 03/25/19 10:00 AM ANESTHESIA TECH documented as of this encounter Care Teams Bombsight Specialist Relationship Specialty Start Date End Date Gayla Barker, ANNIE, HARSHA [address] [place] [address] PCP - General Advanced Practice Nurse 03/25/19 documented as of this encounter
--- OUTSIDE RECORDS SUMMARY | 2024-02-24 19:47 | XMS_ITS | Encounter Summary ---
Author Organization [facility] Address [address] [place] [address] Phone Care Team Providers Care Fisher Pound Net Or Trap Name Role Phone Gayla Barker APRN, STREETCAR STARTER Primary Care Provider Encounter Details Date Type Department Care Team (Late st Contact Info) Description 07/25/2019 [facility] [address] [place] [address] Gayla Barker APRN, STREETCAR STARTER [address] [place] [address] Social History Tobacco Use Types [...] on file Legal Sex Female 10:27 AM SYSTEMS PROGRAM 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 Yes 07/24/2019 11:41 AM CDT documented as of this encounter Miscellaneous Notes * Telephone Encounter - Sara Wasserman, RN - 07/25/2019 3:53 PM CDT Patient was notified and verbalized understanding. Patient reports she will try which ever medication PCP thinks will work best for her. Please advise * Telephone Encounter - Rima Junior - 07/25/2019 3:46 PM CDT Called pt and lmom to talk about medication. Pt wanted rx for Prozac but per Gayla has side effects. She would better off to try the Wellbutrin or Celexa. documented in this encounter Plan of Treatment Not on file documented as of this encounter Visit Diagnoses Not on filedocumented in this encounter Additional Health Concerns Assessment Noted Time PHQ-9 Depression Total Score: 0 03/25/19 20 10:00 AM SYSTEMS PROGRAM MANAGER documented as of this encounter Care Teams Fisher Pound Net Or Trap Relationship Specialty Start Date End Date Gayla Barker, SENIOR POWER SCHEDULER, STREETCAR STARTER [address] [place] [address] PCP - General Advanced Practice Nurse 03/25/19 documented as of this encounter
--- OUTSIDE RECORDS SUMMARY | 2024-02-24 19:47 | XMS_ITS | Encounter Summary ---
Author Organization [facility] Address [address] [place] [address] Phone Care Team Providers Care Orthotic Aide Name Role Phone Gayla Barker APRN, DELIVERY DIRECTOR Primary Care Provider Reason for Visit * Reason Onset Date Comments Anxiety 08/18/2019 Medication Management 08/18/2019 ALPRAZolam (XANAX) 0.25 MG Tablet Encounter Details Date Type Department Care Team (Late st Contact Info) Description 08/18/2019 Nurse Triage [facility] [address] [place] [address] [place] [address] Gayla Barker APRN, DELIVERY DIRECTOR [address] [place] [address] Anxiety; Medication Management (ALPRAZolam (XANAX) 0.25 MG Tablet) Social History Tobacco Use Types Packs/Day Years [...] file Legal Sex Female 10:27 AM SUPERVISOR IN CHARGE Gender Identity Not on file Sexual Orientation Not on file COVID-19 Exposure Response Date Recorded In the last month, have you been in contact with someone who was confirmed or suspected to have Coronavirus / COVID-19? No / Unsure 08/18/2019 6:47 PM CDT documented as of this encounter Miscellaneous Notes * Telephone Encounter - Arina Alexis RN - 08/18/2019 6:54 PM CDT SITUATION (caller perception/concerns): Medication management BACKGROUND (events leading up to call): Patient calling for Xanax refill. States she has one tab left. Noted in chart: Gayla Patel, RN to Gayla Barker, CATASTROPHE CLAIMS SUPERVISOR, DELIVERY DIRECTOR ?? 3:20 PM Note Requested Prescriptions Pending Prescriptions Disp Refills ?? ALPRAZolam (XANAX) 0.25 MG Tablet [Pharmacy Med Name: ALPRAZOLAM 0.25 MG TABLET] 30 Tab 0 ? Sig: TAKE 1 TABLET BY MOUTH 3 TIMES DAILY NEEDED FOR ANXIETY ? There is no refill protocol information for this order ? RECOMMENDATION: Medication question. Patient informed that the above medication has been pended andis awaiting provider approval. Patient agrees to call the office tomorrow to see if this medicationhas been refilled. See care advice and disposition for guideline. First positive answer recorded; all responses to prior questions were negative. If symptoms increase, change, or if new symptoms develop, call your PCP or call back. Recommendation based on caller information and is not a diagnosis. Verified and reviewed all triage information with caller. Caller verbalized understanding of information given and denies further questions. Teach-back method utilized. Reason for Disposition ??? Caller requesting a NON-URGENT new prescription or refill and triager unable to refill per [facility] Protocols used: MEDICATION QUESTION CALL-A-AH documented in this encounter Plan of Treatment Not on file documented as of this encounter Visit Diagnoses Not on filedocumented in this encounter Additional Health Concerns Assessment Noted Time PHQ-9 Depression Total Score: 0 03/25/19 20 10:00 AM SUPERVISOR IN CHARGE documented as of this encounter Care Teams Orthotic Aide Relationship Specialty Start Date End Date Gayla Barker, VISUAL MERCHANDISING MANAGER, DELIVERY DIRECTOR [address] [place] [address] PCP - General Advanced Practice Nurse 03/25/19 documented as of this encounter
--- OUTSIDE RECORDS SUMMARY | 2024-02-24 19:47 | XMS_ITS | Encounter Summary ---
Author Organization [facility] Address [address] [place] [address] Phone Care Team Providers Care Swimming Pool Cleaner Name Role Phone Gayla Barker APRN, HARSHA Primary Care Provider Reason for Visit * Reason Onset Date Comments Results 08/12/2019 COVID-19 Encounter Details Date Type Department Care Team (Late st Contact Info) Description 08/12/2019 Telephone [facility] [place] [address] [place] [address] Gayla Barker APRN, LD TEACHER [address] [place] [address] Results (COVID-19) Social History Tobacco Use Types Packs/Day Years [...] file Legal Sex Female 10:27 AM COMPUTER CONSOLE OPERATOR Gender Identity Not on file Sexual Orientation Not on file COVID-19 Exposure Response Date Recorded In the last month, have you been in contact with someone who was confirmed or suspected to have Coronavirus / COVID-19? Yes 08/06/2019 3:24 PM CDT documented as of this encounter Miscellaneous Notes * Telephone Encounter - Leti Gusman RN - 08/12/2019 10:12 AM CDT Phoned patient with COVID-19 results. Patient aware and verbalized understanding. No questions for junior copywriter. * Telephone Encounter - Leti Gusman RN - 08/12/2019 10:11 AM CDT ----- Message from Gayla Barker APN, LD TEACHER sent at 08/12/2019 9:58 AM CDT ----- Negative COVID. documented in this encounter Plan of Treatment Not on file documented as of this encounter Visit Diagnoses Not on filedocumented in this encounter Additional Health Concerns Infection Onset Date Last Indicated Resolved Time COVID - 19 08/06/2019 08/10/2019 08/13/2019 7:37 AM CDT Assessment Noted Time PHQ-9 Depression Total Score: 0 03/25/19 10:00 AM COMPUTER CONSOLE OPERATOR documented as of this encounter Care Teams Swimming Pool Cleaner Relationship Specialty Start Date End Date Gayla Barker APRN, LD TEACHER [address] [place] [address] PCP - General Advanced Practice Nurse 03/25/19 documented as of this encounter
--- OUTSIDE RECORDS SUMMARY | 2024-02-24 19:47 | XMS_ITS | Encounter Summary ---
Author Organization [facility] Address [address] [place] [address] Phone Care Team Providers Care Vacuum Forming Machine Operator Name Role Phone Gayla Barker APRN, MACHINE ENGINEER Primary Care Provider Reason for Visit * Reason Comments COVID-19 Encounter Details Date Type Department Care Team ([facility] Contact Info) Description 08/16/2019 1:15 PM CDT Telemedicine [facility] Digital Contact Center [address] [place] [address] Roro Quach, LEAD MEDICAL TECHNOLOGIST, MACHINE ENGINEER [address] [place] [address] Cough (Primary Dx); Sore throat; Post-nasal drainage; MARTINEZ (dyspnea on exertion) Discharge Disposition: Discharged to home or Selfcare [...] on file Legal Sex Female 10:27 AM ASSOCIATE DEAN OF WOMEN Gender Identity Not on file Sexual Orientation Not on file COVID-19 Exposure Response Date Recorded In the last month, have you been in contact with someone who was confirmed or suspected to have Coronavirus / COVID-19? Yes 08/16/2019 11:39 AM CDT documented as of this encounter Progress Notes * Roro Quach, PENNY, HARSHA - 08/16/2019 1:15 PM CDT Images from the original note were not included. [facility] SUBJECTIVE Chief Complaint Patient presents with ??? COVID-19 HPI Carito is a 29 y/o female calling in with multiple Covid-like symptoms. Carito hernandez she has been suffering from multiple upper respiratory symptoms intermittently for the past 3 months. She has been tested for COVID up to 5 times during this period. She was most recently tested on 07/28/09 and 08/10/19. Today she reports the following symptoms: sore throat, cough, rhinorrhea, post nasal drainage, SHELTON, muscle aches, and SOB. Although she admits that she has been suffering from these symptoms intermittently over the past several months, her symptoms seemed to have worsened around 08/06/19. She then presented to the ED on 08/09 for these symptoms, as she was mostly concerned for the SOB. Testing, including labs, respiratory panel, CXR and covid test all came back normal. She was discharged and instructed to f/u with her PCP SOB occurs mostly with exertion, but will occasionally occur at rest. She states she has a HR and SpO2 monitor at home and has been checking these routinely and she denies any abnormal readings. She currently denies any vomiting, diarrhea, rash, abdominal pain, loss of taste or loss of smell. She states she has tried everything for her symptoms including: tylenol, delsym, martir, benadryl, and magic mouth wash as prescribed by the ED. She does report improvement with her cough with thedelsym, but nothing else seems to work. She is currently on prednisone and hydroxychloroquine for hx of lupus. She is just very concerned regarding her symptoms and hx of lupus. 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 She admits she has been working while she is ill, but did take today off for her symptoms. She denies any direct exposure from any known COVID positive patients. -According to the chart, she has been following with her PCP for her symptoms. She was recently referred to an cashier and waiter/waitress for her complaints. Allergies Allergen Reactions ??? Effexor [Venlafaxine] Itching ??? Medrol [Methylprednisolone] Anaphylaxis Past Medical History Positives Diagnosis Date ??? Lupus (systemic lupus erythematosus) (HCC) ??? Seizures (HCC) Social History Substance and Sexual Activity Alcohol Use Not Currently ??? Frequency: Monthly or less Comment: occasionally Social History Tobacco Use Smoking Status Former Smoker Smokeless Tobacco Never Used Current Outpatient Medications on File Prior to Visit Medication Sig Dispense Refill ??? albuterol 108 (90 Base) MCG/ACT Aerosol Solution take 2 Puffs by inhalation every 4 hours as needed for Cough (shortness of breath). 8.5 g 0 ??? ALPRAZolam (XANAX) 0.25 MG Tablet Take 1 Tab by mouth 3 times daily as needed for Anxiety. 30 Tab 0 ??? ergocalciferol (VITAMIN D) 77631 UNIT Capsule TAKE 1 CAPSULE BY MOUTH [...] by mouth daily. 90 Tab 3 ??? traZODone (DESYREL) 50 MG Tablet 1/2 - 1 tablet as needed at bedtime for sleep (Patient not taking: Reported on 08/16/2019) 90 Tab 0 No current facility-administered medications on file prior [...] ??? Nausea and vomiting Review of Systems Constitutional: Positive for fatigue. Negative for appetite change, chills and fever. HENT: Positive for postnasal drip, rhinorrhea and sore throat. Negative for trouble swallowing. Respiratory: Positive for cough and shortness of breath. Negative for wheezing. Cardiovascular: Negative for chest pain. Gastrointestinal: Negative for abdominal pain, diarrhea, nausea and vomiting. Genitourinary: Negative for decreased urine volume. Musculoskeletal: Positive for myalgias. Skin: Negative for rash. Neurological: Positive for headaches. Chief complaint and all history documented by ancillary staff were reviewed and verified with additions or corrections as appropriate. OBJECTIVE Physical Exam Instructed patient to take radial pulse over the phone: 88 bpm. Home monitor shows SpO2 of 99% Speaking in complete sentences. No distress or increased respiration rate noted during dialogue. Rare cough noted during call. ASSESSMENT/PLAN Education (as applicable): - Patient counseled to remain at home unless symptoms get worse. If symptoms worsen, the patient was counseled to call back to their PCP office (or this triage line if no PCP) or go to ED immediatelyfor severe symptoms. - If asymptomatic and had close contact with COVID-19 positive individual(s): quarantine at home for 14 days for symptom monitoring. - If symptomatic or symptoms develop within [...] is not to prepare food for others. -For [facility] who are COVID confirmed but were [...] sick leave, or to return to work. [facility] is not providing excuse for work notes or return to work notes at this time per CDC recommendations. Caller verbalizes understanding of the above information. Diagnoses and all orders for this visit: Cough Sore throat Post-nasal drainage MARTINEZ (dyspnea on exertion) Recommended disposition of Home self-care supported by the above documentation. Patient agreed withdisposition. No distress noted over the phone. SpO2 and HR reassuring. Although we did discuss the incidence rate of false negative Covid tests, I reassured Carito thattesting accuracy improves the more tests that are completed. As she has had these symptoms intermittently over the past 3 months and has had 5 total negative tests, with 2 being within the past 2 1/2weeks, I do not believe she needs another test at this time. As she also had a full work up in the ED within the past 5 days without any significant changes in symptoms, I do not feel she needs an in person evaluation. Patient tl/james Perez did stress the importance of following up with her PCP for her symptoms. I also encouraged her to call the hotline again for any new or worsening symptoms or questions. As always, she was also encouraged to go the ED or call 911 for severe symptoms, such as worsening SOB or chest pain. Patient tl/james Perez did give her information for the [facility] testing site in [place] if she does feels she needs any repeat testing. Patient thanked me for this information. Patient was assessed via telephone for a duration of 16-30 minutes. Patient verbally consented for this service to be performed. - Roro Quach APN, CNP documented in this encounter Plan of Treatment Not on file documented as of this encounter Visit Diagnoses Diagnosis Cough- Primary Sore throat Acute pharyngitis Post-nasal drainage Unspecified sinusitis (chronic) MARTINEZ (dyspnea on exertion) Other dyspnea and respiratory abnormality documented in this encounter Additional Health Concerns Assessment Noted Time PHQ-9 Depression Total Score: 0 03/25/19 20 10:00 AM ASSOCIATE DEAN OF WOMEN documented as of this encounter Care Teams Vacuum Forming Machine Operator Relationship Specialty Start Date End Date Gayla Barker, LEAD MEDICAL TECHNOLOGIST, MACHINE ENGINEER [address] [place] [address] PCP - General Advanced Practice Nurse 03/25/19 documented as of this encounter
--- OUTSIDE RECORDS SUMMARY | 2024-02-24 19:47 | XMS_ITS | Encounter Summary ---
Author Organization [facility] Address [address] 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 Yes 08/20/2019 7:17 AM CDT documented as of this encounter Miscellaneous Notes * Telephone Encounter - Kristie Yee RN - 08/27/2019 12:50 PM CDT SITUATION: Hypotension BACKGROUND: Patient was in the ER on 08/24. Current b/p is 96/64 ASSESSMENT: Symptom Description / Location: Patient c/o dizziness and lightheadedness and times. Usually when lying down. Patient denies at this time. States this is why she went to the ER to begin with. Patientstates heart rate feels super fast . Patient is currently driving. Advised patient she should not be doing so. Patient states she is fine. Patient states her b/p was 96/64 when she was released fromthe ED. Pain (0-10): 0/10 Temp: unaware Treatment / Response: none LMP / / : NA RECOMMENDATION: See care advice and disposition for Guideline First positive answer recorded, all responses to prior questions were negative. If symptoms increase, change or if new symptoms develop, call your HCP or call back. Recommendations were based on caller information and is not a diagnosis. Verified and reviewed all triage information with caller. Reason for Disposition ??? Extra heart beats or heart is beating fast (i.e., palpitations ) Protocols used: LOW BLOOD [id number] Patient refusing 911 and refusing ED. States the ED is not doing anything for her. States she will go to prompt care now. documented in this encounter Plan of Treatment Not on file documented as of this encounter Visit Diagnoses Not on filedocumented in this encounter Additional Health Concerns Assessment Noted Time PHQ-9 Depression Total Score: 0 03/25/19 20 10:00 AM SMOKE TESTER documented as of this encounter Care Teams Hospital Admissions Officer Relationship Specialty Start Date End Date Gayla Barker, STORAGE CENTER MANAGER, JOY LOADING MACHINE OPERATOR [address] [place] [address] PCP - General Advanced Practice Nurse 03/25/19 documented as of this encounter
--- OUTSIDE RECORDS SUMMARY | 2024-02-24 19:47 | XMS_ITS | Encounter Summary ---
Author Organization [facility] Address [address] [place] [address] Phone Care Team Providers Care Medical Detailist Name Role Phone Gayla Barker APRN, LANDSCAPING SPECIALIST Primary Care Provider Reason for Visit * Reason Onset Date Comments COVID-19 08/20/2019 Encounter Details Date Type Department Care Team ([facility] Contact Info) Description 08/20/2019 Nurse Triage [facility] Digital Contact Center [address] [place] [address] Gayla Barker, ANNIE, LANDSCAPING SPECIALIST [address] [place] [address] COVID-19 Social History Tobacco Use Types Packs/Day [...] on file Legal Sex Female 10:27 AM STRAW HAT BRIM CUTTER OPERATOR Gender Identity Not on file Sexual Orientation Not on file COVID-19 Exposure Response Date Recorded In the last month, have you been in contact with someone who was confirmed or suspected to have Coronavirus / COVID-19? Yes 08/20/2019 7:17 AM CDT documented as of this encounter Miscellaneous Notes * Addendum Note - Sara Gonzalez RN - 08/20/2019 7:56 AM CDTAddended by: SARA BAZZI on: 08/20/2019 07:56 AM Modules accepted: Orders * Telephone Encounter - Sara Gonzalez RN - 08/20/2019 7:33 AM CDT Images from the original note were not included. Travel Screening Question Response Do you have any of the following symptoms? Loss of taste;Diarrhea;Sore throat;Cough;Muscle pain;Weakness;Severe headache (tickle in the throat, really tired,ear ache, pink eye, body itches all over and taking bendryl (feels like bugs crawling on her)) In the last month, have you been in contact with someone who was confirmed or suspected to have Coronavirus / COVID-19? Yes (exposed on Mother's Day) Have you traveled internationally in the last month? No Travel History Travel since 07/20/19 No documented travel since 07/20/19 COVID-19 Testing Priority for Carito Rausch: 2 Nurse to triage SITUATION: Patient calling with Symptoms started a couple days ago and they are getting worse today. She now has a cough and NVD. BACKGROUND: Patient has lupus. She says that she has been having symptoms for a while and was tested for COVID in June and it came back negative. Patient went to ED yesterday for possibly symptoms andwas given one dose of azithromycin for a STI. 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 ASSESSMENT: Symptom Description / Location: Worst symptom today is body aches and right eye has goop coming outof it. She is concerned that this could either be a reaction to azithromycin or COVID19. Loss of taste noted this morning. Chills fatigue and headache noted this morning. Itchy throat. Feels itchy all over. NVD. Diarrhea 6xs per day, loose and watery, Stated that there is no blood or mucous. Vomiting any time she eats a meal. This has been going on since yesterday. But she also said that she had had a problem with this in April and it lasted until June. Pain (0-10): 8/10 body aches Temp: No temp today Treatment / Response: Took her normal medication and xanax. Benadryl for the itching and it did nothelp. RECOMMENDATION: Per guidelines recommended a telephone visit with a provider. Gave care advice per COVID19 guidelines. Patient stated that she would like to be tested for COVID19. She is at work right now and requested that the provider call her back at 9:30am. Caller verbalizes understanding of the above information. SARA BAZZI RN Reason for Disposition ??? [1] COVID-19 [...] (See public health department website, if unsure) Community spread present, works with the public 2. ONSET: When did the COVID-19 symptoms start? A couple days ago 3. WORST SYMPTOM: What is your worst symptom? (e.g., cough, fever, shortness of breath, muscle aches) Body aches 4. COUGH: Do you have a cough? If so, ask: How bad is the cough? Has a cough, has been taking delsym, and it helps with the cough, except at night. Dry cough when she lays down. She has taken robutussin. 5. FEVER: Do you have a fever? If so, ask: What is your temperature, how was it measured, and when did it start? No fever today. 6. RESPIRATORY STATUS: Describe your breathing? (e.g., shortness of breath, wheezing, unable to speak) No shortness of breath or wheezing. 7. [id number]: Are you getting better, staying the same or getting worse compared to yesterday? If getting worse, ask, In what way? The same. 8. HIGH RISK DISEASE: Do you have any chronic medical problems? (e.g., asthma, heart or lung disease, weak immune system, etc.) Lupus, weakened immune system. Asthma. 9. : Is there any chance you are ? When was your last menstrual period? LMP 07/20. Denies any possibility of being . 10. OTHER SYMPTOMS: Do you have any other symptoms? (e.g., chills, fatigue, headache, loss of smell or taste, muscle pain, sore throat) Loss of taste noted this morning. Chills fatigue and headache noted. Itchy throat. Feels itchy all over. NVD. Diarrhea 6xs per day, loose and watery, Stated that there is no blood or mucous. Vomiting any time she eats a meal. This has been going on since yesterday. But she also said that she had had a problem with this in April and it lasted until June. Protocols used: CORONAVIRUS (COVID-19) DIAGNOSED OR [id number] * Telephone Encounter - Remedios Mcmahan, NEWSPAPER SUBSCRIPTION SOLICITOR-SPEECH LANGUAGE PATHOLOGIST - 08/20/2019 7:15 AM CDT Images from the original note were not included. Travel Screening Question Response Do you have any of the following symptoms? Loss of taste;Diarrhea;Sore throat;Cough;Muscle pain;Weakness;Severe headache (tickle in the throat, really tired,ear ache, pink eye, body itches all over and taking bendryl (feels like bugs crawling on her)) In the last month, have you been in contact with someone who was confirmed or suspected to have Coronavirus / COVID-19? Yes (exposed on Mother's Day) Have you traveled internationally in the last month? No Travel History Travel since 07/20/19 No documented travel since 07/20/19 COVID-19 test last week- negative. Feels like symptoms are worsening. Went ER last night- given medications and diagnosed with trichomoniasis. Prescribed several medications. Has lupus. Patients whose symptoms require immediate emergency assistance [...] further on next steps. Did patient refuse metrologist? yes ??? If patient refuses to speak to a nurse: Please continue to monitor your symptoms and if they get worse, do not hesitate to call us back. We are here 18/09. We recommend you refer to the CDC website regarding guidelines for self- isolation and thank you for calling. REMEDIOS MCMAHAN, NEWSPAPER SUBSCRIPTION SOLICITOR-SPEECH LANGUAGE PATHOLOGIST Electronically signed by Remedios Mcmahan, NEWSPAPER SUBSCRIPTION SOLICITOR-SPEECH LANGUAGE PATHOLOGIST at 08/20/2019 7:22 AM CDT documented in this encounter Plan of Treatment Not on file documented as of this encounter Visit Diagnoses Not on filedocumented in this encounter Additional Health Concerns Assessment Noted Time PHQ-9 Depression Total Score: 0 03/25/19 20 10:00 AM STRAW HAT BRIM CUTTER OPERATOR documented as of this encounter Care Teams Medical Detailist Relationship Specialty Start Date End Date Gayla Barker, MANAGER HVAC, LANDSCAPING SPECIALIST [address] [place] [address] PCP - General Advanced Practice Nurse 03/25/19 documented as of this encounter
--- OUTSIDE RECORDS SUMMARY | 2024-02-24 19:47 | XMS_ITS | Encounter Summary ---
Author Organization [facility] Address [address] 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 Yes 08/20/2019 7:17 AM CDT documented as of this encounter Miscellaneous Notes * Telephone Encounter - Dayna Crawley RN - 08/22/2019 12:36 PM CDT Patient is aware and verbalizes understanding. States she had a seizure yesterday and was taken by ambulance to [facility]. Patient scheduled a ER follow up appointment * Telephone Encounter - Gilmar De Paz PAC - 08/22/2019 12:24 PM CDT Gayla is out of the office. Would recommend if she continues to feel unwell to treat conservativelyat home. If she develops worsening of symptoms make a follow up visit or be seen in prompt care or ED over weekend. * Telephone Encounter - Sara Wasserman RN - 08/21/2019 1:54 PM CDT Patient was not taking no for another COVID test. Patient calling back to see if she can be seen by PCP. Patient is self pay and did not want a 30 minute ED F/U. Patient still feels like she wants to be tested again. Due to where she works and the people she isin contact with every day. Please advise Patient denies this has anything to do with her anxiety. * Telephone Encounter - Dayna Crawley RN - 08/21/2019 1:50 PM CDT Patient is aware and verbalizes understanding. * Telephone Encounter - Dayna Crawley RN - 08/20/2019 2:23 PM CDT Left message for patient to call back. * Telephone Encounter - Gayla Barker APN, HARSHA - 08/20/2019 9:18 AM CDT No, I do not believe she needs another test she has been tested 7 times an all been negative. The diarrhea and nausea have been an ongoing issue I believe a lot of it has to do with the anxiety. The taste issue is probably it has to do with the antibiotic she is on. Wash the eye with baby shampoo can keep an eye on it. I do not believe any of the symptoms warrant another covid test or any change in treatment. * Telephone Encounter - Alyssa Almodovar RN - 08/20/2019 9:00 AM CDT Patient is calling and states she called the [facility] hotline today and was told to contact the office. Patient states she went to the ED yesterday for vomiting and diarrhea and today she can't taste anything. Patient states she's also having a red eye that had crust in it when she woke up. Patient states she was tested for COVID on 08/09 and is asking if she needs another one done. See COVID travel s creen from this morning, please advise. documented in this encounter Plan of Treatment Not on file documented as of this encounter Visit Diagnoses Not on filedocumented in this encounter Additional Health Concerns Assessment Noted Time PHQ-9 Depression Total Score: 0 03/25/19 10:00 AM HANDMADE TILE ARTIST documented as of this encounter Care Teams Mill Work Relationship Specialty Start Date End Date Gayla Barker APRN, HARSHA [address] [place] [address] PCP - General Advanced Practice Nurse 03/25/19 documented as of this encounter
--- OUTSIDE RECORDS SUMMARY | 2024-02-24 19:47 | XMS_ITS | Encounter Summary ---
Author Organization [facility] Address [address] [place] [address] Phone Care Team Providers Care Tax Consultant Name Role Phone Gayla Barker APRN, CNP Primary Care Provider Reason for Visit * Reason Comments Cough onset 07/31/2019//us ing otc meds Shortness of Breath Encounter Details Date Type Department Care Team (Late st Contact Info) Description 08/06/2019 3:30 PM CDT Telemedicine 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 Yes 08/06/2019 3:24 PM CDT documented as of this encounter Patient Instructions * Patient Instructions* Gayla Barker APN, CNP - 08/06/2019 3:30 PM CDT COVID test tomorrow - will call to schedule Antihistamine and decongestant of choice Increase water Increase vitamin C May use tylenol/ ibuprofen as needed Salt water gargles, chloraseptic, warm tea with honey. Not better in 10-14 days please call. ER for severe shortness of breathe. documented in this encounter Progress Notes * Rima Junior - 08/06/2019 3:30 PM CDT Carito Rausch is on telephone visit for Cough (onset 07/31/2019//using otc meds) and Shortness of Breath . Medications and allergies reconciled with Carito Rausch. * Gayla Barker APN, CNP - 08/06/2019 3:30 PM CDT Subjective: Patient was assessed via telephone for a duration of 15 minutes.?? Patient verbally consented for this service to be performed and billed. Patient presents for telephone encounter for shortness of breath and cough. She also reports that she has had feeling of fever but no fever reported. She has head congestion sore throat, and headaches. She has been taking dryd-lnr-tywerwn cough and congestion medication without much relief. Symptoms started on July 30 and have not improved. Review of Systems Constitutional: Positive for chills and fatigue. Negative for fever. HENT: Positive for congestion, sore throat and voice change (covid). Respiratory: Positive for cough (dry) and shortness of breath. Cardiovascular: Negative for chest pain and palpitations. Gastrointestinal: Negative for constipation, diarrhea, nausea and vomiting. Genitourinary: Negative. Musculoskeletal: Negative. Neurological: Positive for headaches. Negative for dizziness. Psychiatric/Behavioral: Positive for dysphoric mood. The patient is nervous/anxious. Objective: Physical Exam Nursing note reviewed. Neurological: Mental Status: She is alert and oriented to person, place, and time. Psychiatric: Mood and Affect: Mood normal. Telephone encounter. Physical exam omitted. Assessment and Plan See Diagnoses, Orders, Follow-up, and Instructions Encounter Diagnoses Name Primary? Exposure to COVID-19 virus ??? Cough ??? Shortness of breath Yes COVID test tomorrow - will call to schedule Antihistamine and decongestant of choice Increase water Increase vitamin C May use tylenol/ ibuprofen as needed Salt water gargles, chloraseptic, warm tea with honey. Not better in 10-14 days please call. ER for severe shortness of breathe. documented in this encounter Plan of Treatment Not on file documented as of this encounter Results * SARS-COV-2 BY PCR (08/10/2019 10:24 AM CDT) SARSCOV2 Sent to Non Interfaced Lab. See COVID-19 by paint spray tender-PCR, Non Interfaced Lab for results. (Referenc e Range for this test is Not Detected) 08/12/2019 9:34 AM CDT NON-INTERFACED REFERENCE LABORATORIES Swab NASOPHARYNGEAL STRUCTURE / Unknown Non-Phlebotomy Collection / Unknown 08/10/2019 10:24 AM CDT 08/10/2019 10:24 AM CDT Gayla Barker APRN, CLASSROOM PARAPROFESSIONAL MICROBIOLOGY - GENERAL ORDERABLES Final Result NON-[facility] documented in this encounter Visit Diagnoses Diagnosis Shortness of breath- Primary Exposure to COVID-19 virus Cough documented in this encounter Additional Health Concerns Infection Onset Date Last Indicated Resolved Time COVID - 19 08/06/2019 08/10/2019 08/13/2019 7:37 AM CDT Assessment Noted Time PHQ-9 Depression Total Score: 0 03/25/19 20 10:00 AM ANTIQUE REFINISHER documented as of this encounter Care Teams Tax Consultant Relationship Specialty Start Date End Date Gayla Barker, BAGGAGE INSPECTOR, CLASSROOM PARAPROFESSIONAL [address] [place] [address] PCP - General Advanced Practice Nurse 03/25/19 documented as of this encounter
--- OUTSIDE RECORDS SUMMARY | 2024-02-24 19:47 | XMS_ITS | Encounter Summary ---
Author Organization [facility] Address [address] [place] [address] Phone Care Team Providers Care Phthalic Acid Purifier Name Role Phone Gayla Barker APRN, SHIRT HEMMER Primary Care Provider Reason for Visit * Reason Onset Date Comments ED Follow-up 07/15/2019 Referral 07/15/2019 Encounter Details Date Type Department Care Team (Late st Contact Info) Description 07/15/2019 Telephone [facility] [address] [place] [address] Gayla Barker, ANNIE, SHIRT HEMMER [address] [place] [address] ED Follow-up; Referral Social History Tobacco Use Types Packs/Day Years [...] on file Legal Sex Female 10:27 AM 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 No / Unsure 07/13/2019 7:56 AM CDT documented as of this encounter Miscellaneous Notes * Telephone Encounter - Angelique Crisostomo RN - 07/16/2019 1:56 PM CDT Notified patient. Voiced understanding. States that GI has already put in orders for her. Just FYI. * Telephone Encounter - Angelique Crisostomo RN - 07/16/2019 1:21 PM CDT Left message for patient to call the office. See other telephone encounter dated 07/15/2019. * Telephone Encounter - Gilmar De Paz PAC - 07/16/2019 1:05 PM CDT I can see that she has been evaluated by GI. Would recommend that they manage orders for colonoscopy and EGD in addition to follow-up for liver nodule. No further recommendations. * Telephone Encounter - Angelique Crisostomo RN - 07/15/2019 10:07 AM CDT Patient calling and stating that she was seen in [facility] ED on 07/12 and [facility] ED on 07/14 for abdominal pain and diarrhea. States that [facility] did a CT of abdomen/pelvis and found an 11 mm nodule on her liver. States that she was told that she needs a referral to see Dr. Denis for a colonoscopy and EGD. States that she was told by Dr. Denis's office that provider needs to order colonoscopy and EGD as STAT, so patient can get them done sooner. Would provider be willing to sign referral? Order pended for your review. Would provider be willing to order colonoscopy and EGD STAT? Please advise. documented in this encounter Plan of Treatment Not on file documented as of this encounter Visit Diagnoses Diagnosis Abdominal pain, unspecified abdominal location- Primary Diarrhea, unspecified type documented in this encounter Additional Health Concerns Assessment Noted Time PHQ-9 Depression Total Score: 0 03/25/19 10:00 AM ARTS ADMINISTRATOR OR MANAGER documented as of this encounter Care Teams Phthalic Acid Purifier Relationship Specialty Start Date End Date Gayla Barker, BOILERMAKER ASSEMBLY AND ERECTION, SHIRT HEMMER [address] [place] [address] PCP - General Advanced Practice Nurse 03/25/19 documented as of this encounter
--- OUTSIDE RECORDS SUMMARY | 2024-02-24 19:47 | XMS_ITS | Encounter Summary ---
Author Organization [facility] Care Team Providers Care Pipe Finishing Supervisor Name Role Phone Gayla Barker APRN, HARSHA Primary Care Provider Encounter Details Date Type Department Care Team (Latest Contact Info) Description 08/06/2019 Travel Social History Tobacco Use Types Packs/Day [...] on file Legal Sex Female 10:27 AM FORGING MACHINE OPERATOR Gender Identity Not on file [...] Total Score: 0 03/25/19 20 10:00 AM FORGING MACHINE OPERATOR documented as of this encounter Care Teams Pipe Finishing Supervisor Relationship Specialty Start Date End Date Gayla Barker APRN, VALIDATION TECHNICIAN [address] [place] [address] PCP - General Advanced Practice Nurse 03/25/19 documented as of this encounter
--- OUTSIDE RECORDS SUMMARY | 2024-02-24 19:47 | XMS_ITS | Encounter Summary ---
Author Organization [facility] Address [address] [facility] [place] [address] Phone Care Team Providers Care Cognos Tm1 Developer Name Role Phone Gayla Barker APRN, CNP Primary Care Provider Reason for Visit * Reason Comments Diarrhea having colonoscopy a nd egd done on Sunday Vomiting Back Pain Encounter Details Date Type Department Care Team (Late st Contact Info) Description 07/25/2019 2:45 PM CDT Office Visit [facility] [address] [place] [address] Gayla Barker APRN, CNP [address] [place] [address] Anxiety (Primary Dx); Insomnia, unspecified type; Non-intractable vomiting with nausea, unspecified vomiting type; Acute midline low back pain without sciatica Discharge Disposition: Discharged to home or Selfcare [...] on file 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 Yes 07/24/2019 11:41 AM CDT documented as of this encounter Last Filed Vital Signs Vital Sign Reading Time Taken Comments Blood Pressure 102/72 07/25/2019 1:43 PM CDT Pulse 78 07/25/2019 1:43 PM CDT Temperature 36.7 ??C (98 ??F) 07/25/2019 1:43 PM CDT Respiratory Rate 20 07/25/2019 1:43 PM CDT Oxygen Saturation 97% 07/25/2019 1:43 PM CDT Inhaled Oxygen Concentration - - Weight 74 kg (163 lb 3.2 oz) 07/25/2019 1:43 PM CDT Height 160 cm (5' 3 ) 07/25/2019 1:43 PM CDT Body Mass Index 28.91 07/25/2019 1:43 PM CDT documented in this encounter Patient Instructions * Patient Instructions* Gayla Barker APN, CNP - 07/25/2019 2:45 PM CDT Continue current medications Follow up in 3 months. documented in this encounter Progress Notes * Rima Junior - 07/25/2019 2:45 PM CDT Carito Dianelys Rausch, 29 y.o., female is here for Diarrhea (having colonoscopy and egd done on Sunday ); Vomiting; and Back Pain Medication Refills: Patient reports/denies need for medication refills. Orders Pended: no Requested Prescriptions No prescriptions requested or ordered in this encounter Home Medications Medication Sig Start Date End Date Taking? Authorizing Provider albuterol 108 (90 Base) MCG/ACT Aerosol Solution take 2 Puffs by inhalation every 4 hours as neededfor Cough (shortness of breath). Patient not taking: Reported on 07/11/2019 06/18/19 Gayla Barker APN, FIRE SUPPORT MAN ALPRAZolam (XANAX) 0.25 MG Tablet Take 1 Tab by mouth 3 times daily as needed for Anxiety. 07/09/19 Yes Gayla Barker APN, CNP ergocalciferol (VITAMIN D) 27344 UNIT Capsule TAKE 1 CAPSULE BY MOUTH ONE TIME PER WEEK 06/21/19 ProviderIsis MD Escitalopram Oxalate (LEXAPRO) 5 MG Tablet Take 5 mg by mouth daily. Yes Provider, MD Isis hydroxychloroquine (PLAQUENIL) 200 MG Tablet Take 1 Tab by mouth daily. 05/09/19 Yes Gayla Barker APN, CNP ketorolac (TORADOL) 10 MG Tablet Take 10 mg by mouth every 4 hours as needed. Yes Emergency, Nurse,RN OMEPRAZOLE PO Take 20 mg by mouth. Yes Emergency, Nurse, RN predniSONE (DELTASONE) 10 MG Tablet Take 1 Tab by mouth daily. 05/09/19 Yes Gayla Barker APN, CNP predniSONE (DELTASONE) 5 MG Tablet Take 1 Tab by mouth daily. 05/09/19 Gayla Barker APN, CNP Medications Discontinued During This Encounter Medication Reason ??? venlafaxine (EFFEXOR XR) 37.5 MG CAPSULE SR 24 HR Med List Clean Up I have reviewed the home medication list with the patient and have reconciled discrepancies. The list is accurate to the best of my knowledge. Smoking Status: Social History Tobacco Use ??? Smoking status: Former Smoker ??? Smokeless tobacco: Never Used Substance Use Topics ??? Alcohol use: Not Currently Frequency: Monthly or less Comment: occasionally ??? Drug use: Not Currently Types: Marijuana Smoking Cessation Counseling Given: no Health Care Maintenance: Health Maintenance Due Topic Date Due ??? DTaP/Tdap/Td Immunization (2 - Td) 12/29/2018 Orders Pended: no The following BPA's have been addressed with the patient today:tdap * Gayla Barker APN, CNP - 07/25/2019 2:45 PM CDT Subjective: Patient presents with complaints of diarrhea and vomiting that is been ongoing. She has not appointment for colonoscopy and an EGD on Sunday. She states that she has low back pain that is associatedwith some constipation. She states that the Lexapro is working except that she is having problems with a low libido which is causing problems with her marriage. We discussed changing to Wellbutrin. She is also having problems with insomnia and we discussed starting on trazodone half tablet to 1 tablet nightly. Review of Systems Constitutional: Positive for fatigue. HENT: Negative. Respiratory: Negative for cough and shortness of breath. Cardiovascular: Negative for chest pain and palpitations. Gastrointestinal: Positive for constipation, diarrhea, nausea and vomiting. Genitourinary: Negative. Musculoskeletal: Positive for back pain and neck pain. Neurological: Positive for headaches. Psychiatric/Behavioral: Positive for sleep disturbance. The patient is nervous/anxious. Objective: Physical Exam Vitals signs and nursing note reviewed. Constitutional: Appearance: She is obese. Cardiovascular: Rate and Rhythm: Normal rate and regular rhythm. Pulses: Normal pulses. Heart sounds: Normal heart sounds. Pulmonary: Effort: Pulmonary effort is normal. Breath sounds: Normal breath sounds. Abdominal: General: Bowel sounds are normal. Palpations: Abdomen is soft. Musculoskeletal: Normal range of motion. Skin: General: Skin is warm and dry. Neurological: Mental Status: She is alert and oriented to person, place, and time. Psychiatric: Mood and Affect: Mood normal. BP 102/72 Pulse 78 Temp 98 ??F (36.7 ??C) (Temporal) Resp 20 Ht 5' 3 (1.6 m) Wt 163 lb 3.2 oz (74 kg) LMP 06/19/2019 (Approximate) SpO2 97% BMI 28.91 kg/m?? Assessment and Plan See Diagnoses, Orders, Follow-up, and Instructions Encounter Diagnoses Name Primary? Anxiety Yes ??? Insomnia, unspecified type ??? Non-intractable vomiting with nausea, unspecified vomiting type ??? Acute midline low back pain without sciatica Continue current medications Follow up in 3 months. Start trazadone at night Stop lexapro Start wellbutrin GI lab on Sunday Documentation for this visit on 07/25/2019 was completed using a template. I have seen and examinedthe patient. Everything documented was personally performed at this visit with the necessary additions, deletions and changes made as appropriate. documented in this encounter Plan of Treatment Not on file documented as of this encounter Visit Diagnoses Diagnosis Anxiety- Primary Anxiety state, unspecified Insomnia, unspecified type Non-intractable vomiting with nausea, unspecified vomiting type Acute midline low back pain without sciatica documented in this encounter Additional Health Concerns Assessment Noted Time PHQ-9 Depression Total Score: 0 03/25/19 20 10:00 AM AIRCRAFT SEAT UPHOLSTERER documented as of this encounter Care Teams Cognos Tm1 Developer Relationship Specialty Start Date End Date Gayla Barker, TOBACCO DIPPER, FIRE SUPPORT MAN [address] [place] [address] PCP - General Advanced Practice Nurse 03/25/19 documented as of this encounter
--- OUTSIDE RECORDS SUMMARY | 2024-02-24 19:47 | XMS_ITS | Encounter Summary ---
Author Organization [facility] Address [address] [place] [address] Phone Care Team Providers Care Solar Sales Assessor Name Role Phone Daryl Barker APRN, CNP Primary Care Provider Ct[facility] Unavailable Marianela vailable Reason for Visit * Reason Onset Date Comments Blood in Stools 08/12/2019 Encounter Details Date Type Department Care Team (Late st Contact Info) Description 08/12/2019 Nurse Triage [facility] [address] [place] [address] Daryl Barker APRN, CONCRETE LAYER [address] [place] [address] Blood in Stools Social History Tobacco Use Types Packs/Day Years [...] on file 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 No / Unsure 02/03/2020 12:59 PM EXECUTIVE OFFICE MANAGER documented as of this encounter Miscellaneous Notes * Addendum Note - Verna Isaac CMA - 02/11/2020 8:48 AM CSTAddended by: VERNA ISAAC on: 02/11/2020 08:48 AM Modules accepted: Orders UTIVE OFFICE MANAGER * Addendum Note - Daryl Barker APN, CNP - 08/13/2019 4:53 PM CDTAddended by: DARYL BARKER on: 08/13/2019 04:53 PM Modules accepted: Orders * Telephone Encounter - Alyssa Almodovar RN - 08/12/2019 10:52 AM CDT SITUATION: Blood in stool BACKGROUND: This morning at 2:30 AM and another this morning ASSESSMENT: Symptom Description / Location: Called patient due to picture sent through [employer], she stated the picture was from 2:30 AM. Water is red, states she wiped off a small clot. Denies any rectal or abdominal pain. Patient states she was constipated for 2-3 days prior to yesterday. States she had to strain yesterday when having a BM and strained a little today. Patient denies any other sx Pain (0-10): 0/10 Temp: denies fever Treatment / Response: none LMP / / : RECOMMENDATION: See care advice and disposition for Guideline First positive answer recorded, all responses to prior questions were negative. If symptoms increase, change or if new symptoms develop, call your HCP or call back. Recommendations were based on caller information and is not a diagnosis. Verified and reviewed all triage information with caller. Reason for Disposition ??? MODERATE rectal bleeding (small blood clots, passing blood without stool, or toilet water turnsred) Protocols used: RECTAL [id number] Patient states she doesn't want to come to the office and will continue to monitor. Informed patient that if she has another stool like this, experiences dizziness/lightheadedness, or has worsening sx, go to ED. Patient stated she was just there over the weekend, but did not have the bleeding. Whatdoes PCP recommend? * Telephone Encounter - Alyssa Almodovar RN - 08/12/2019 10:51 AM CDTFrom: Carito Rausch To: KINGA Barker Sent: 08/12/2019 10:14 AM CDT Subject: Visit Follow-Up Question Should I be worried? It???s only when I poop documented in this encounter Plan of Treatment Not on file documented as of this encounter Visit Diagnoses Diagnosis Shortness of breath- Primary Sore throat Acute pharyngitis Glands swollen Enlargement of lymph nodes Immunocompromised state (HCC) Unspecified immunity deficiency documented in this encounter Additional Health Concerns Infection Onset Date Last Indicated Resolved Time COVID - 19 08/06/2019 08/10/2019 08/13/2019 7:37 AM CDT COVID - 19 09/03/2019 09/04/2019 09/09/2019 11:2 [...] - 19 12/25/2019 12/26/2019 12/28/2019 6:29 AM EXECUTIVE OFFICE MANAGER COVID - 19 01/16/2020 01/17/2020 01/23/2020 12:5 2 PM EXECUTIVE OFFICE MANAGER Assessment Noted Time PHQ-9 Depression Total Score: 0 03/25/19 10:00 AM EXECUTIVE OFFICE MANAGER documented as of this encounter Care Teams Solar Sales Assessor Relationship Specialty Start Date End Date Daryl Barker, INSIDE WIREMAN, CONCRETE LAYER [address] [place] [address] PCP - General Advanced Practice Nurse 03/25/19 Ct[facility] [place] [employer] 09/03/19 documented as of this encounter
--- OUTSIDE RECORDS SUMMARY | 2024-02-24 19:47 | XMS_ITS | Encounter Summary ---
Author Organization [facility] Address [address] 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 No / Unsure 07/13/2019 7:56 AM CDT documented as of this encounter Miscellaneous Notes * Telephone Encounter - Angelique Crisostomo RN - 07/14/2019 3:29 PM CDT Opened in error documented in this encounter Plan of Treatment Not on file documented as of this encounter Visit Diagnoses Not on filedocumented in this encounter Additional Health Concerns Assessment Noted Time PHQ-9 Depression Total Score: 0 03/25/19 10:00 AM COMPRESSED GASES TESTER documented as of this encounter Care Teams Lightning Rod Erector Relationship Specialty Start Date End Date Gayla Barker, CLAIM TECHNICIAN, ARNP [address] [place] [address] PCP - General Advanced Practice Nurse 03/25/19 documented as of this encounter
--- OUTSIDE RECORDS SUMMARY | 2024-02-24 19:47 | XMS_ITS | Encounter Summary ---
Author Organization [facility] Address [address] [place] [address] [place] [address] Phone Care Team Providers Care Economic Research Assistant Name Role Phone Gayla Barker APRN, SCORE CALLER Primary Care Provider Reason for Visit * Reason Comments COVID-19 Encounter Details Date Type Department Care Team ([facility] Contact Info) Description 08/20/2019 9:30 AM CDT Telemedicine 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 Yes 08/20/2019 7:17 AM CDT documented as of this encounter Patient Instructions * Patient Instructions* Jennifer Shelton APN, CNP - 08/20/2019 9:30 AM CDT Remain at home unless symptoms get worse. If symptoms worsen, call back to their PCP office (or this triage line if no PCP) or go to ED immediately for severe symptoms. If necessary to leave the house, wear mask and socially distance self whenever able. stay home until these three things have happened: - No fever for 3 days (without the use of medicine) AND - Other symptoms have improved (ie cough, SOB) AND - at least 10 days have passed since your symptoms first appeared Push fluid intake and take Tylenol PRN for fever, body aches. Avoid ibuprofen. If you do not live alone: segregate yourself, use a separate bathroom if possible, sleep in a separate area, have no/limited family time, and the person with symptoms is not to prepare food for others. Wash hands frequently. Contact employer to report positive screen and symptoms (if employer has not already been contacted. Per CDC: Employers should not require a positive COVID-19 test result or a healthcare provider's note for employees who are sick to validate their illness, qualify for sick leave, or to return to work. [facility] is not providing excuse for work notes at this time per CDC recommendation documented in this encounter Progress Notes * Jennifer Shelton APN, CNP - 08/20/2019 9:30 AM CDT Images from the original note were not included. [facility] SUBJECTIVE Chief Complaint Patient presents with ??? COVID-19 Carito Rausch is a 29 y.o. female with cough, fatigue, muscle aches, sore throat, headache, nausea, vomiting, diarrhea and mattering eye, itching of 1 day duration. Patient denies temperature > 38 F. Positive for change in smell or taste. She was exposed by proxy to positive covid person. She was seen in ED yesterday and given azithromycin. Did not have itching, eye mattering, vomiting at that time She has been tested multiple times in past with negative results. She had symptoms April through June. Symptoms resolved, now returned. 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 Effexor [Venlafaxine] Itching [...] ANXIETY 30Tab 0 ??? ergocalciferol (VITAMIN D) 67317 UNIT Capsule TAKE 1 CAPSULE BY MOUTH [...] ??? Nausea and vomiting Review of Systems - General ROS: positive for - chills negative for - fever ENT ROS: positive for - headaches and sore throat negative for - nasal congestion Respiratory ROS: cough, no shortness of breath, or wheezing Cardiovascular ROS: no chest pain or dyspnea on exertion Musculoskeletal ROS: positive for - muscle pain Skin: Itching-no rash OBJECTIVE Per patient description over the phone General: No acute distress Neuro: alert, oriented. Speech clear and appropriate. Skin: warm and dry. Resp: Speaking in complete sentences. No distress or coughing noted during dialogue. Able to walk around room without dyspnea. ASSESSMENT/PLAN Diagnoses and all orders for this visit: Cough Sore throat Conjunctivitis, unspecified conjunctivitis type, unspecified laterality Pruritus Multiple concerns warrant in person evaluation. Will defer decision on testing to provider providing in person evaluation Discussed further in-person evaluation including option of ED visit at this time. Seen in ED yesterday. No significant dyspnea or dizziness. Conjunctivitis and itching new. She is priority 2 for testing, but has been tested multiple times. There has been a potential exposure since last test. Also N,V, pruritus may be from azithromycin. She is interested in in person evaluation and I agree that isreasonable. She will go to [facility] in [place]. Education. Copy to my chart: Yes Remain at home unless symptoms get worse. If symptoms worsen, call back to their PCP office (or this triage line if no PCP) or go to ED immediately for severe symptoms. If necessary to leave the house, wear mask and socially distance self whenever able. stay home until these three things have happened: - No fever for 3 days (without the use of medicine) AND - Other symptoms have improved (ie cough, SOB) AND - at least 10 days have passed since your symptoms first appeared Push fluid intake and take Tylenol PRN for fever, body aches. Avoid ibuprofen. If you do not live alone: segregate yourself, use a separate bathroom if possible, sleep in a separate area, have no/limited family time, and the person with symptoms is not to prepare food for others. Wash hands frequently. Contact employer to report positive screen and symptoms (if employer has not already been contacted. Per CDC: Employers should not require a positive COVID-19 test result or a healthcare provider's note for employees who are sick to validate their illness, qualify for sick leave, or to return to work. [facility] is not providing excuse for work notes at this time per CDC recommendations. Caller verbalizes understanding of the above information. Recommended disposition of [facility] supported by the above documentation. Patient agreed with disposition. Warm handoff given to [facility] Jessica herbert to notify of COVID-19 positive screened patient coming to clinic/ED per provider recommendations. Patient was assessed via telephone for a duration of 0-15 minutes. Patient verbally consented for this service to be performed. - Jennifer Shelton APN, HARSHA documented in this encounter Plan of Treatment Not on file documented as of this encounter Visit Diagnoses Diagnosis Cough- Primary Sore throat Acute pharyngitis Conjunctivitis, unspecified conjunctivitis type, unspecified laterality Pruritus Unspecified pruritic disorder documented in this encounter Additional Health Concerns Assessment Noted Time PHQ-9 Depression Total Score: 0 03/25/19 10:00 AM MANAGER AGENCY documented as of this encounter Care Teams Economic Research Assistant Relationship Specialty Start Date End Date Gayla Barker APRN, SCORE CALLER [address] [place] [address] PCP - General Advanced Practice Nurse 03/25/19 documented as of this encounter
--- OUTSIDE RECORDS SUMMARY | 2024-02-24 19:47 | XMS_ITS | Encounter Summary ---
Author Organization [facility] Address [address] [facility] [place] [address] Phone Care Team Providers Care School Bus Monitor Name Role Phone Gayla Barker APRN, PULL SOCKET ASSEMBLER Primary Care Provider Reason for Visit * Reason Comments COVID-19 Encounter Details Date Type Department Care Team ([facility] Contact Info) Description 07/24/2019 12:30 PM CDT Telemedicine [facility] Digital Contact Center [address] [place] [address] Tabby Cool APRN, PULL SOCKET ASSEMBLER [address] [place] [address] Sore throat (Primary Dx); Glands swollen; History of lupus (HCC); Immunocompromised state (HCC) Discharge Disposition: Discharged to home or [...] on file Legal Sex Female 10:27 AM LOAN REVIEW ANALYST Gender Identity Not on file Sexual Orientation Not on file COVID-19 Exposure Response Date Recorded In the last month, have you been in contact with someone who was confirmed or suspected to have Coronavirus / COVID-19? Yes 07/24/2019 11:41 AM CDT documented as of this encounter Patient Instructions * Patient Instructions* Tabby Cool APN, CNP - 07/24/2019 12:30 PM CDT Go for evaluation of your throat/strep test documented in this encounter Progress Notes * Tabby Cool APN, CNP - 07/24/2019 12:30 PM CDT Images from the original note were not included. [facility] SUBJECTIVE Chief Complaint Patient presents with ??? COVID-19 HPI 29 y/o female with history of asthma and lupus c/o onset 3 days ago with body aches, sore throat, nausea and vomiting (now resolved) and developed fever today (101.3) along with tender swollen glandsunder her jaw line. She suffers from body aches chronically due to lupus so it is hard for her discern if there is any change in her condition with the current body aches. Her main concern is the sore throat and swollenglands. She was exposed to a friend on 07/05 who later tested positive for COVID. --[facility]ito [facility] on [facility] and was negative. 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 She is currently taking Prednisone 15mg daily in addition to Plaquenil for her Lupus, and is using your Toradol for pain as of yesterday when her powdered metal supervisor ordered it to address her complaints of body aches. . Her last dose of Toradol was at 1030--her temp is now down to 98.3 (2 hours later) She has an EGD scheduled for early next week so has to have a Covid test in 2 days anyway. Allergies Allergen Reactions ??? Effexor [Venlafaxine] Itching [...] as needed for Cough (shortness of breath). (Patient not taking: Reported on 07/11/2019) 8.5 g 0 ??? ALPRAZolam (XANAX) 0.25 MG Tablet Take 1 Tab by mouth 3 times daily as needed for Anxiety. 30 Tab 0 ??? Escitalopram Oxalate (LEXAPRO) 5 MG Tablet [...] by mouth daily. 90 Tab 3 ??? venlafaxine (EFFEXOR XR) 37.5 MG CAPSULE SR 24 HR 1 tab by mouth daily for 7 days then increaseto 1 tab by mouth twice daily. 60 Cap 0 No current facility-administered medications on file prior to visit. Patient Active Problem List Diagnosis ??? Herpes genitalis ??? Laceration of flexor muscle, fascia and tendon of right little finger at wrist and hand level, initial encounter ??? Pain in joint ??? Myalgia, unspecified site ??? Systemic lupus erythematosus (HCC) ??? Weakness ??? Spontaneous Review of Systems Constitutional: Positive for fatigue and fever. HENT: Positive for sore throat. Eyes: Negative. Respiratory: Negative. Negative for cough, chest tightness and shortness of breath. Cardiovascular: Negative. Negative for chest pain. Gastrointestinal: Positive for nausea (resolved). Genitourinary: Negative. Musculoskeletal: Positive for arthralgias (chronic). Neurological: Negative. Chief complaint and all history documented by ancillary staff were reviewed and verified with additions or corrections as appropriate. OBJECTIVE Speaking easily in complete sentences. No distress or coughing noted during dialogue. Physical Exam Unable to perform due to telephone encounter ASSESSMENT/PLAN Patient was assessed via telephone for a duration of 15 minutes. Patient verbally consented for this service to be performed. Diagnoses and all orders for this visit: Sore throat Glands swollen History of lupus (HCC) Immunocompromised state (HCC) I have instructed her that she needs in person evaluation of her sore throat (I.e.visualization of her throat as well as strep testing) at this time. She will have Covid testing in 2 days preoperatively, and has already recently been tested (for the 4th time) negative in the past week. Patient Instructions Go for evaluation of your throat/strep test No follow-ups on file. Education -- Patient counseled to remain at home unless symptoms get worse. If symptoms worsen, the patient was counseled to call back to their PCP office (or this triage line if no PCP) or go to ED immediately for severe symptoms. - If symptomatic or symptoms develop within those 14 days of quarantine, stay home until these three things have happened: - No fever for 3 days (without the use of medicine) AND - Other symptoms have improved (ie cough, SOB) AND - at least 7 days have passed since your symptoms first appeared - Patient to push fluid intake and take Tylenol PRN for fever, body aches. - If you do not live alone: segregate yourself, use a separate bathroom if possible, sleep in a separate area, have no/limited family time, and the person with symptoms is not to prepare food for others. -For [facility] who are COVID confirmed but were [...] Caller verbalizes understanding of the above information. - Tabby Cool CANS VACUUM TESTER, PULL SOCKET ASSEMBLER documented in this encounter Plan of Treatment Not on file documented as of this encounter Visit Diagnoses Diagnosis Sore throat- Primary Acute pharyngitis Glands swollen Enlargement of lymph nodes History of lupus Personal history of other endocrine, metabolic, and immunity disorders Immunocompromised state (HCC) Unspecified immunity deficiency documented in this encounter Additional Health Concerns Assessment Noted Time PHQ-9 Depression Total Score: 0 03/25/19 10:00 AM LOAN REVIEW ANALYST documented as of this encounter Care Teams School Bus Monitor Relationship Specialty Start Date End Date Gayla Barker APRN, CNP [address] [place] [address] PCP - General Advanced Practice Nurse 03/25/19 documented as of this encounter
--- OUTSIDE RECORDS SUMMARY | 2024-02-24 19:47 | XMS_ITS | Encounter Summary ---
Author Organization [facility] Care Team Providers Care Nut Threader Name Role Phone Gayla Barker APRN, HARSHA Primary Care Provider Encounter Details Date Type Department Care Team (Latest Contact Info) Description 08/20/2019 Travel Social History Tobacco Use Types Packs/Day [...] on file Legal Sex Female 10:27 AM ARMHOLE PRESSER Gender Identity Not on file Sexual Orientation [...] Total Score: 0 03/25/19 20 10:00 AM ARMHOLE PRESSER documented as of this encounter Care Teams Nut Threader Relationship Specialty Start Date End Date Gayla Barker APRN, HOME APPLIANCE INSTALLER [address] [place] [address] PCP - General Advanced Practice Nurse 03/25/19 documented as of this encounter
--- OUTSIDE RECORDS SUMMARY | 2024-02-24 19:47 | XMS_ITS | Encounter Summary ---
Author Organization [facility] Address [address] [place] [address] Phone Care Team Providers Care Medical Historian Name Role Phone Gayla Barker APRN, EMBOSSING PRESS OPERATOR APPRENTICE Primary Care Provider Reason for Visit * Reason Comments COVID-19 Encounter Details Date Type Department Care Team (Late st Contact Info) Description 08/10/2019 10:30 AM CDT Clinical Support [facility] [place] [address] [place] [phone] Testing, [facility] [place] Exposure to COVID-19 virus; Cough; Shortness of breath Discharge Disposition: Discharged to home or Selfcare [...] on file Legal Sex Female 10:27 AM EDUCATIONAL THERAPY TEACHER Gender Identity Not on file Sexual Orientation Not on file COVID-19 Exposure Response Date Recorded In the last month, have you been in contact with someone who was confirmed or suspected to have Coronavirus / COVID-19? Yes 08/06/2019 3:24 PM CDT documented as of this encounter Progress Notes * Khushbu Watters RN - 08/10/2019 10:30 AM CDT Patient presents to [facility] for drive up nasopharyngeal COVID 19 swab. right nare swabbed with no difficulty and patient tolerated well. Written instruction given on care at home, home isolation, and symptoms that would require an ER visit. Assistance with COVID 19 swab done by Chitra Kaur APN, CNP Specimen sent to [facility] documented in this encounter Plan of Treatment Not on file documented as of this encounter Procedures Procedure Name Priority Date/Time Associated Diagnosis Comments COVID19 BY MEDICAL STAFF PHYSICIAN/PCR (NON INTERFACED LAB) Routine 08/10/2019 10:24 AM CDT Exposure to COVID-19 virus Cough Shortness of breath SARS-COV-2 BY MOLECULAR Routine 08/10/2019 10:24 AM CDT Exposure to COVID-19 virus Cough Shortness of breath documented in this encounter Results * COVID19 BY MEDICAL STAFF PHYSICIAN/PCR (NON INTERFACED LAB) (08/10/2019 10:24 AM CDT) COVID-19 hide spreader-PCR (NON INTERFACED) NOT DETECTED - See Scanned Report Not Detected 08/12/2019 9:34 AM CDT [facility] Swab NASOPHARYNGEAL STRUCTURE / Unknown Non-Phlebotomy Collection / Unknown 08/10/2019 10:24 AM CDT 08/10/2019 10:24 AM CDT us Gayla Barker APRN, CNP LAB SEND OUTS Final R esult [facility] [address] [place] [address] * SARS-COV-2 BY PCR (08/10/2019 10:24 AM CDT) SARSCOV2 Sent to Non Interfaced Lab. See COVID-19 by hide spreader-PCR, Non Interfaced Lab for results. (Referenc e Range for this test is Not Detected) 08/12/2019 9:34 AM CDT NON-INTERFACED REFERENCE LABORATORIES Swab NASOPHARYNGEAL STRUCTURE / Unknown Non-Phlebotomy Collection / Unknown 08/10/2019 10:24 AM CDT 08/10/2019 10:24 AM CDT us Gayla Barker APRN, CNP MICROBIOLOGY - GENERAL ORDERABLES Final Result NON-INTERFACED REFERENCE LABORATORIES documented in this encounter Visit Diagnoses Diagnosis Exposure to COVID-19 virus Cough Shortness of breath documented in this encounter Additional Health Concerns Infection Onset Date Last Indicated Resolved Time COVID - 19 08/06/2019 08/10/2019 08/13/2019 7:37 AM CDT Assessment Noted Time PHQ-9 Depression Total Score: 0 03/25/19 10:00 AM EDUCATIONAL THERAPY TEACHER documented as of this encounter Care Teams Medical Historian Relationship Specialty Start Date End Date Gayla Barker APRN, HARSHA [address] [place] [address] PCP - General Advanced Practice Nurse 03/25/19 documented as of this encounter
--- OUTSIDE RECORDS SUMMARY | 2024-02-24 19:47 | XMS_ITS | Encounter Summary ---
Author Organization [facility] Address [address] [place] [address] Phone Care Team Providers Care Ribbon Blockmaker Name Role Phone Gayla Barker APRN, OPEN HEARTH STOCKYARD SUPERVISOR Primary Care Provider Reason for Visit * Reason Comments Hand Swelling Encounter Details Date Type Department Care Team (Late st Contact Info) Description 08/08/2019 2:30 PM CDT Telemedicine [facility] [address] [place] [address] Gayla Barker, ANNIE, OPEN HEARTH STOCKYARD SUPERVISOR [address] [place] [address] Arthralgia, unspecified joint (Primary Dx); Systemic lupus erythematosus, unspecified SLE [...] on file Legal Sex Female 10:27 AM JUICE PACKAGING MACHINES SETTER Gender Identity Not on file Sexual Orientation Not on file COVID-19 Exposure Response Date Recorded In the last month, have you been in contact with someone who was confirmed or suspected to have Coronavirus / COVID-19? Yes 08/06/2019 3:24 PM CDT documented as of this encounter Patient Instructions * Patient Instructions* Gayla Barker APN, CNP - 08/08/2019 2:30 PM CDT Ice alternating with heat, not directly against skin Take NSAIDs with food Omeprazole for stomach protection with NSAIDs Try to work less hours until start new medication documented in this encounter Progress Notes * Rima Junior - 08/08/2019 2:30 PM CDT Carito Rausch is on telephone visit for Hand Swelling . Medications and allergies reconciled with Carito Rausch. * Gayla Barker APN, CNP - 08/08/2019 2:30 PM CDT Subjective: Patient was assessed via telephone for a duration of 15 minutes.?? Patient verbally consented for this service to be performed and billed. Patient presents with complaints worsening joint pain. She states her hands or swelling worse. She talked her entry level business analyst and she told her that there was nothing much that could be done until she started the new medication. She has been in the pool which she states helps. She has been taken Toradol which also helps. She states that she has work 35 hr last 2 days as asking for a note be off tomorrow on Sunday. Advised her that she probably should work less hours per day so that it does not takes a toll. Review of Systems Constitutional: Positive for appetite change. Negative for fever. HENT: Positive for sore throat. Respiratory: Negative for shortness of breath. Cardiovascular: Negative for chest pain and palpitations. Gastrointestinal: Positive for diarrhea. Negative for constipation, nausea and vomiting. Genitourinary: Negative. Musculoskeletal: Positive for arthralgias and myalgias. Neurological: Negative for dizziness and headaches. Psychiatric/Behavioral: [...] type, unspecified organ involvement status (HCC) ??? Arthralgia, unspecified joint Yes Ice alternating with heat, not directly against skin Take NSAIDs with food Omeprazole for stomach protection with NSAIDs Try to work less hours until start new medication Electronically signed by Gayla Barker, BATTERY INSTALLER, OPEN HEARTH STOCKYARD SUPERVISOR at 08/08/2019 3:06 PM CDT documented in this encounter Plan of Treatment Not on file documented as of this encounter Visit Diagnoses Diagnosis Arthralgia, unspecified joint- Primary Systemic lupus erythematosus, unspecified SLE type, unspecified organ involvement status (HCC) documented in this encounter Additional Health Concerns Infection Onset Date Last Indicated Resolved Time COVID - 19 08/06/2019 08/10/2019 08/13/2019 7:37 AM CDT Assessment Noted Time PHQ-9 Depression Total Score: 0 03/25/19 10:00 AM JUICE PACKAGING MACHINES SETTER documented as of this encounter Care Teams Ribbon Blockmaker Relationship Specialty Start Date End Date Gayla Barker, ASSISTANT PASSENGER LOCOMOTIVE ENGINEER, OPEN HEARTH STOCKYARD SUPERVISOR [address] [place] [address] PCP - General Advanced Practice Nurse 03/25/19 documented as of this encounter
--- OUTSIDE RECORDS SUMMARY | 2024-02-24 19:47 | XMS_ITS | Encounter Summary ---
Author Organization [facility] Care Team Providers Care Time Cycle Operator Name Role Phone Gayla Barker APRN, CNP Primary Care Provider Encounter Details Date Type Department Care Team (Latest Contact Info) Description 08/16/2019 Travel Social History Tobacco Use Types Packs/Day [...] file Legal Sex Female 10:27 AM AGRICULTURAL REAL ESTATE AGENT Gender Identity Not on file Sexual [...] Total Score: 0 03/25/19 10:00 AM AGRICULTURAL REAL ESTATE AGENT documented as of this encounter Care Teams Time Cycle Operator Relationship Specialty Start Date End Date Gayla Barker APRN, CNP [address] [place] [address] PCP - General Advanced Practice Nurse 03/25/19 documented as of this encounter
--- OUTSIDE RECORDS SUMMARY | 2024-02-24 19:47 | XMS_ITS | Encounter Summary ---
Author Organization [facility] Address [address] 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 Yes 08/06/2019 3:24 PM CDT documented as of this encounter Miscellaneous Notes * Telephone Encounter - Leti Gusman RN - 08/08/2019 2:57 PM CDT Patient informed letter is in My Chart during telephone encounter with PCP. * Telephone Encounter - Rima Junior - 08/08/2019 1:55 PM CDT Tried to call pt and see if she still needed phone visit this afternoon. * Telephone Encounter - Gayla Barker APN, CNP - 08/08/2019 1:37 PM CDT Patient's letter off work today and tomorrow should be available for her in my chart. * Telephone Encounter - Alyssa Almodovar RN - 08/08/2019 9:19 AM CDT Patient is calling and asking if she can have a note to excuse her from today and tomorrow. She states she has a telephone visit today and would like this sent to [facility]. Please advise. documented in this encounter Plan of Treatment Not on file documented as of this encounter Visit Diagnoses Not on filedocumented in this encounter Additional Health Concerns Infection Onset Date Last Indicated Resolved Time COVID - 19 08/06/2019 08/10/2019 08/13/2019 7:37 AM CDT Assessment Noted Time PHQ-9 Depression Total Score: 0 03/25/19 10:00 AM PLANT GENERAL MANAGER documented as of this encounter Care Teams Lock Up Worker Relationship Specialty Start Date End Date Gayla Barker APRN, ASSOCIATE CIVIL ENGINEER [address] [place] [address] PCP - General Advanced Practice Nurse 03/25/19 documented as of this encounter
--- OUTSIDE RECORDS SUMMARY | 2024-02-24 19:47 | XMS_ITS | Encounter Summary ---
Author Organization [facility] Address [address] [place] [address] Phone Care Team Providers Care Photography And Prints Curator Name Role Phone Gayla Barker APRN, EXOTIC DANCER Primary Care Provider Ct, [facility] Unavailable Marianela vailable Brian Mon MD Primary Care Provider [phone] Encounter Details Date Type Department Care Team (Late st Contact Info) Description 07/13/2019 Transcribe Orders [facility] Emergency [address] [place] [address] Dang Denis MD [address] [place] [address] [facility] [address] [place] [address] Diarrhea, unspecified type (Primary Dx) Social History Tobacco Use Types [...] on file Legal Sex Female 10:27 AM NUT CRACKER Gender Identity Not on file Sexual Orientation Not on file COVID-19 Exposure Response Date Recorded In the last month, have you been in contact with someone who was confirmed or suspected to have Coronavirus / COVID-19? No / Unsure 07/13/2019 7:56 AM CDT documented as of this encounter Plan of Treatment Not on file documented as of this encounter Results * CULTURE, STOOL (07/13/2019 7:30 AM CDT) CULTURE RESULTS NO SALMONELLA, SHIGELLA OR E COLI 0157 ISOLATED 07/15/2019 9:09 AM CDT [facility] CULTURE RESULTS NEGATIVE FOR CAMPYLOBACTER ANTIGEN 07/15/2019 9:09 AM CDT [facility] CULTURE RESULTS SHIGA TOXIN 1 AND SHIGA TOXIN 2 NOT DETECTED 07/15/2019 9:09 AM CDT [facility] CULTURE RESULTS Moderate Mixed geovanna 07/15/2019 9:09 AM CDT [facility] Comment:PROBABLE USUAL GEOVANNA FOR THIS SPECIMEN SOURCE Culture STOOL SPECIMEN / Unknown Non-Phlebotomy Collection / Unknown 07/13/2019 7:30 AM CDT 07/13/2019 9:51 AM CDT Danny Woo MD MICROBIOLOGY - GENERAL ORD ERABLES Final Result [facility] [address] [place] [address], * CLOSTRIDIUM DIFFICILE TOXINS A&B (07/13/2019 7:30 AM CDT) CLOSTRIDIUM DIFFICILE TOXIN Negative Negative, Invalid, See comment 07/13/2019 12:30 PM CDT [facility] Other Non-Phlebotomy Collection / Unknown 07/13/2019 7:30 AM CDT 07/13/2019 9:51 AM CDT us Danny Woo MD BODY FLUIDS & STOOLS ORDER ANAHI Final Result [facility] [address] [place] [address] documented in this encounter Visit Diagnoses Diagnosis Diarrhea, unspecified type- Primary documented in this encounter Additional Health Concerns Infection Onset Date Last Indicated Resolved Time C. difficile Rule-Out 07/13/2019 07/13/20192019 12:30 PM CDT COVID - 19 08/06/2019 08/10/2019 08/13/2019 7:37 [...] - 19 12/25/2019 12/26/2019 12/28/2019 6:29 AM NUT CRACKER COVID - 19 01/16/2020 01/17/2020 01/23/2020 12:5 2 PM NUT CRACKER COVID - 19 03/18/2020 03/18/2020 03/19/2020 6:44 AM NUT CRACKER COVID - 19 12/06/2020 12/06/2020 12/26/2020 12:1 6 AM CDT COVID - 19 03/05/2021 03/05/2021 03/05/2021 6:11 PM NUT CRACKER COVID - 19 Confirmed 03/05/2021 03/05/2021 022 12:16 AM NUT CRACKER COVID - 19 11/14/2021 11/18/2021 11/28/2021 12:1 6 AM CDT COVID - 19 01/08/2022 01/08/2022 01/18/2022 12:1 6 AM NUT CRACKER COVID - 19 04/25/2022 04/25/2022 05/05/2022 12:1 6 AM NUT CRACKER COVID - 19 10/17/2023 10/17/2023 10/17/2023 1:56 PM CDT Assessment Noted Time PHQ-9 Depression Total Score: 0 03/25/19 10:00 AM NUT CRACKER documented as of this encounter Care Teams Photography And Prints Curator Relationship Specialty Start Date End Date Gayla Barker, ROTARY DRUM DYER, EXOTIC DANCER [address] [place] [address] PCP - General Advanced Practice Nurse 03/25/19 Brian Mon MD [address] [place] [address] PCP - General Internal Medicine 10/17/23 Ct[facility] [place] [employer] [facility] 09/03/19 documented as of this encounter
--- OUTSIDE RECORDS SUMMARY | 2024-02-24 19:47 | XMS_ITS | Encounter Summary ---
Author Organization [facility] Care Team Providers Care Workforce Investment Act Career Manager Name Role Phone Gayla Barker APRN, HARSHA Primary Care Provider Encounter Details Date Type Department Care Team (Latest Contact Info) Description 08/18/2019 Travel Social History Tobacco Use Types Packs/Day [...] on file Legal Sex Female 10:27 AM SERVOMECHANISM ASSEMBLER Gender Identity Not on file Sexual [...] Total Score: 0 03/25/19 20 10:00 AM SERVOMECHANISM ASSEMBLER documented as of this encounter Care Teams Workforce Investment Act Career Manager Relationship Specialty Start Date End Date Gayla Barker APRN, RETAIL MANAGER IN TRAINING [address] [place] [address] PCP - General Advanced Practice Nurse 03/25/19 documented as of this encounter
--- OUTSIDE RECORDS SUMMARY | 2024-02-24 19:47 | XMS_ITS | Encounter Summary ---
Author Organization [facility] Address [address] 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 Yes 08/06/2019 11:48 AM CDT documented as of this encounter Miscellaneous Notes * Telephone Encounter - Leti Doan RN - 08/06/2019 11:48 AM CDT SITUATION: Patient calling and reporting that her cough and sob is worsening. Patient reports that she was in close contact with a friend who was positive for covid 19. Patient reports she has lupus and takes prednisone and plaquenil. Patient tested negative for covid 07/27/2019. Patient had a EGD.Patient is a priority 2 for covid testing. Patient is tired and feels week. Patient is at work at time of call. Pulse ox on room air is 99 %. Per guidelines patient scheduled a video visit for 08/06/2019. BACKGROUND: 07/31/2019 ASSESSMENT: Symptom Description / Location: cough, sob Pain (0-10): generalized body aches, 5 Temp: denies any fever Treatment / Response: delsym, tylenol, excedrin migraine. Hot tea LMP / / : Having periods RECOMMENDATION: See care advice and disposition for Guideline First positive answer recorded, all responses to prior questions were negative. If symptoms increase, change or if new symptoms develop, call your HCP or call back. Recommendations were based on caller information and is not a diagnosis. Verified and reviewed all triage information with caller. Screening tool for the Novel Coronavirus (2019-nCoV ): Patient has fever?No Patient has symptoms of cough, shortness of breath, or sore throat? Yes Has patient recently traveled internationally in the last month ? No (If yes to fever OR cough OR shortness of breath OR sore throat AND travel question transfer to triage nurse). Has the patient been in close contact with a suspected or laboratory confirmed 2019 nCoV Coronavirus patient within 14 days of symptom onset ? Yes (If yes to fever OR cough OR shortness of breath OR sore throat AND exposure transfer to triage nurse). (Document both positive and negative responses) Reason for Disposition ? ? MILD difficulty breathing (e.g., minimal/no SOB at rest, SOB with walking, pulse < 100) of new onset or worse than normal Protocols used: BREATHING [id number] documented in this encounter Plan of Treatment Not on file documented as of this encounter Visit Diagnoses Not on filedocumented in this encounter Additional Health Concerns Assessment Noted Time PHQ-9 Depression Total Score: 0 03/25/19 20 10:00 AM ARTIFICIAL INSEMINATION TECHNICIAN documented as of this encounter Care Teams Line Technician Relationship Specialty Start Date End Date Gayla Barker APRN, PRECISION MACHINIST [address] [place] [address] PCP - General Advanced Practice Nurse 03/25/19 documented as of this encounter
--- OUTSIDE RECORDS SUMMARY | 2024-02-24 19:47 | XMS_ITS | Encounter Summary ---
Author Organization [facility] Address [address] 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 Yes 08/06/2019 11:48 AM CDT documented as of this encounter Miscellaneous Notes * Telephone Encounter - Rima Junior - 08/06/2019 2:46 PM CDT Pt had video visit scheduled for today at 2:30, tried to call patient and lmom to call back. documented in this encounter Plan of Treatment Not on file documented as of this encounter Visit Diagnoses Not on filedocumented in this encounter Additional Health Concerns Assessment Noted Time PHQ-9 Depression Total Score: 0 03/25/19 10:00 AM MEDICAL APPOINTMENT CLERK documented as of this encounter Care Teams Legal Instructor Relationship Specialty Start Date End Date Gayla Barker, SLUNK SKINNER, STEAM TABLE ASSOCIATE [address] [place] [address] PCP - General Advanced Practice Nurse 03/25/19 documented as of this encounter
--- OUTSIDE RECORDS SUMMARY | 2024-02-24 19:47 | XMS_ITS | Encounter Summary ---
Author Organization [facility] Address [address] [place] [address] Phone Care Team Providers Care Gusset Ripper Name Role Phone Gayla Barker APRN, HARSHA Primary Care Provider Reason for Visit * Reason Onset Date Comments Medication Refill 08/18/2019 Encounter Details Date Type Department Care Team (Late st Contact Info) Description 08/18/2019 Telephone 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 Yes 08/16/2019 11:39 AM CDT documented as of this encounter Miscellaneous Notes * Telephone Encounter - Gayal Patel, RN - 08/18/2019 8:57 AM CDT Duplicate request. * Telephone Encounter - Gayla Patel, RN - 08/18/2019 8:57 AM CDT ----- Message from Nano Gray sent at 08/18/2019 8:52 AM CDT ----- Regarding: refill RFC: FAX REFILL REQUEST Name of medication needed? ALPRAZolam (XANAX) 0.25 MG Tablet Pharmacy [facility] 30 or 90 day supply? 30 Provider guanaco documented in this encounter Plan of Treatment Not on file documented as of this encounter Visit Diagnoses Not on filedocumented in this encounter Additional Health Concerns Assessment Noted Time PHQ-9 Depression Total Score: 0 03/25/19 10:00 AM LICENSED PRACTICAL VOCATIONAL NURSE documented as of this encounter Care Teams Gusset Ripper Relationship Specialty Start Date End Date Gayla Barker, FIBER OPTIC CENTRAL OFFICE INSTALLER, COMPENSATION ADMINISTRATOR [address] [place] [address] PCP - General Advanced Practice Nurse 03/25/19 documented as of this encounter
--- OUTSIDE RECORDS SUMMARY | 2024-02-24 19:47 | XMS_ITS | Encounter Summary ---
Author Organization [facility] Address [address] [place] [address] Phone Care Team Providers Care Pocket Setter Name Role Phone Gayla Barker APRN, DEFENCE INTELLIGENCE ANALYST Primary Care Provider Reason for Visit * Reason Onset Date Comments COVID-19 08/19/2019 vomiting, diarrh ea, mouth sores and headache Encounter Details Date Type Department Care Team (Late st Contact Info) Description 08/19/2019 Telephone [facility] 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 Yes 08/19/2019 6:06 AM CDT documented as of this encounter Miscellaneous Notes * Telephone Encounter - Najma Daniels RN - 08/19/2019 6:11 AM CDT Unable to contact patient in two attempts. Message left to call back with any questions or concerns. documented in this encounter Plan of Treatment Not on file documented as of this encounter Visit Diagnoses Not on filedocumented in this encounter Additional Health Concerns Assessment Noted Time PHQ-9 Depression Total Score: 0 03/25/19 10:00 AM GM MOBILE documented as of this encounter Care Teams Pocket Setter Relationship Specialty Start Date End Date Gayla Barker, AUTOMATIC COIL MACHINE OPERATOR, DEFENCE INTELLIGENCE ANALYST [address] [place] [address] PCP - General Advanced Practice Nurse 03/25/19 documented as of this encounter
--- OUTSIDE RECORDS SUMMARY | 2024-02-24 19:47 | XMS_ITS | Encounter Summary ---
Author Organization [facility] Address [address] 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 No / Unsure 07/13/2019 7:56 AM CDT documented as of this encounter Miscellaneous Notes * Telephone Encounter - Sara Wasserman, RN - 07/17/2019 1:07 PM CDT Patient was notified and verbalized understanding. * Telephone Encounter - Gilmar De Paz PAC - 07/17/2019 10:21 AM CDT Yes. * Telephone Encounter - Alyssa Almodovar RN - 07/17/2019 9:05 AM CDT Patient is calling and states she took the Effexor last night and she felt like her tongue swelled up and mouth felt weird . Patient reports itching too. Patient states today she feels better, but still having the itching. States she will take a Benadryl. Denies any hives. Patient is asking if shecan switch back to Lexapro. Please advise. * Telephone Encounter - Sara Wasserman, RN - 07/16/2019 4:54 PM CDT Patient was told and verbalized understanding. Patient reports to see psych it will cost her $400 and she can not afford that at this time. Patient will start new medication and call us back with an update. Just an FYI * Telephone Encounter - Gilmar De Paz PAC - 07/16/2019 3:13 PM CDT Low dose of Effexor sent to pharmacy. Start medication and increase in 1 week. Stop Lexapro. Followup with Gayla in 1 month. She needs to see Psychiatry- if referral has not already been placed please do so if pt is willing. * Telephone Encounter - Angelique Crisostomo RN - 07/16/2019 1:52 PM CDT Notified patient. Voiced understanding. States that when she takes Lexapro, she hardly eats anything at all. States that she thinks Lexapro is too strong for her. Asking if provider thinks she would be okay taking Lexapro every other day or if provider would be willing to switch her to venlafaxine.Please advise. * Telephone Encounter - Angelique Crisostomo RN - 07/16/2019 1:23 PM CDT Left message for patient to call the office. See other telephone encounter dated 07/15/2019. * Telephone Encounter - Gilmar De Paz PAC - 07/16/2019 1:06 PM CDT Yes okay to take these together. Please follow recommendations from GI. May be experiencing some side effects from Lexapro this usually improves as adjusting to medication. * Telephone Encounter - Angelique Crisostomo RN - 07/15/2019 10:25 AM CDT Patient calling and asking if she should be taking Lexapro and bentyl together. Please advise. Patient stating that she has had a different kind of abdominal pain, acid reflux, and no appetite since starting Lexapro. Asking if her symptoms could be side effects to Lexapro. Please advise. documented in this encounter Plan of Treatment Not on file documented as of this encounter Visit Diagnoses Not on filedocumented in this encounter Additional Health Concerns Assessment Noted Time PHQ-9 Depression Total Score: 0 03/25/19 10:00 AM VENEER MEASURER documented as of this encounter Care Teams Research Consultant Relationship Specialty Start Date End Date Gyala Barker, TMR TEACHER, SOLAR ENERGY SYSTEMS ENGINEER [address] [place] [address] PCP - General Advanced Practice Nurse 03/25/19 documented as of this encounter
--- OUTSIDE RECORDS SUMMARY | 2024-02-24 19:47 | XMS_ITS | Encounter Summary ---
Author Organization [facility] Address [address] 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 No / Unsure 07/13/2019 7:56 AM CDT documented as of this encounter Miscellaneous Notes * Telephone Encounter - Karen Mcneal CMA - 07/18/2019 1:40 PM CDT CALLED PATIENT TO SEE WHY EXACTLY SHE WAS COMING IN PER PROVIDER. PATIENT STATED SHE IS JUST NEEDING A NOTE STATING ITS OK TO RETURN TO WORK OF TODAY. PER PROVIDER OK TO WRITE THIS NOTE FOR PATIENT documented in this encounter Plan of Treatment Not on file documented as of this encounter Visit Diagnoses Not on filedocumented in this encounter Additional Health Concerns Assessment Noted Time PHQ-9 Depression Total Score: 0 03/25/19 20 10:00 AM EXTENSION WORK INSTRUCTOR documented as of this encounter Care Teams Van Loader Relationship Specialty Start Date End Date Gayla Barker, CONGREGATIONAL CARE PASTOR, GOLF BALL WINDER [address] [place] [address] PCP - General Advanced Practice Nurse 03/25/19 documented as of this encounter
--- OUTSIDE RECORDS SUMMARY | 2024-02-24 19:47 | XMS_ITS | Encounter Summary ---
Author Organization [facility] Address [address] [place] [address] Phone Care Team Providers Care Amf Mechanic Name Role Phone Gayla Barker APRN, TOOL SMITH Primary Care Provider Reason for Visit * Reason Onset Date Comments COVID-19 07/24/2019 Encounter Details Date Type Department Care Team ([facility] [address] Contact Info) Description 07/24/2019 Nurse Triage 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 Yes 07/24/2019 11:41 AM CDT documented as of this encounter Miscellaneous Notes * Telephone Encounter - BethelLeonora marrero RN - 07/24/2019 11:46 AM CDT Nurse to triage according to symptoms. SITUATION: Patient calling with diarrhea, vomiting, cough, fevers, body aches, muscle pain, sore throat BACKGROUND: Positive exposure to a friend with a positive COVID test result. The exposure happened around 07/05. Patient has a history of asthma and lupus. Has been tested for COVID-19, 4 times since the diarrhea started about two months ago. The last test she had done was 07/14. Has an albuterol inhaler but was told to quit using it. ASSESSMENT: Symptom Description / Location: Symptoms started 07/16. Diarrhea and vomiting started around 2 months ago and the patient is scheduled for an EGD and colonoscopy on 07/28 for the ongoing GI issues. She was supposed to have another COVID test done on 07/25 for the procedure. Has had 10 episodes of diarrhea a day since it began. Vomiting only happen occasionally. Has been able to keep liquids down and is maintaining a liquid diet. 07/16 the sore throat, cough, fevers, joint and muscle pain started. Joint pain has been continuous and she spoke with her rheumotologist on 07/22 and was told she could start taking toradol for the joint pain. Has had horrible headaches but not currently had one. Denies any breathing difficulty. Fevers have been intermittent. Highest fever she has seen was today at 101.3. She states the cough is more of just clearing her throat. Pain (0-10): joint pain - 9. Sore throat - 7 Temp: 101.3 this AM, 98.3 at 1130. Treatment / Response: toradol, last taken 1030, has not been helping the joint pain. RECOMMENDATION: TELEPHONE appt. with [facility] provider. If symptoms increase, change, or if new symptoms develop, call your HCP or call back. Recommendations were based on caller information and are not a diagnosis. Verified and reviewed all triage information with caller. For Home Care advice: Patient counseled to remain at home. If symptoms worsen, the patient counseled to call back. If symptoms are severe, the patient instructed to call 911 or go to ED immediately. ??? Patient to push fluid intake and take Tylenol PRN for fever, body aches. ??? If you do not live alone: segregate yourself, use a separate bathroom if possible, sleep in a separate area, have no/limited family time, and the person with symptoms is not to prepare food for others. ??? Patient advised to contact employer now to report positive screen and symptoms. ??? Patient request for an excuse note: Instruct them to send request for note through [employer] or call PCP office. (Per CDC: Employers should not require a positive COVID-19 test result or a healthcare provider's note for employees who are sick to validate their illness, qualify for sick leave,or to return to work. [facility] [employer] is not providing excuse for work notes or return to work notesat this time per CDC recommendations). How to Discontinue Home Isolation People with COVID-19 (or have had COVID-19 type symptoms) who have stayed home (home isolated) can stop home isolation under the following conditions: 1. No fever (100.0 for HCW, 100.4 for lay people) for 3 days (without the use of fever reducing medicine) AND 2. Other symptoms have improved (i.e. cough, SOB) AND 3. At least 10 days have passed since your symptoms first appeared Caller verbalizes understanding of the above information. Reason for Disposition ??? [1] Fever (or feeling feverish) OR cough AND [2] within 14 Days of COVID-19 EXPOSURE (Close Contact) Answer Assessment - Initial Assessment Questions 1. CLOSE CONTACT: Who is the person with the confirmed or suspected COVID-19 infection that you were exposed to? A friend 2. PLACE of CONTACT: Where were you when you were exposed to COVID-19? (e.g., home, school, medical waiting room; which city?) In a home together 3. TYPE of CONTACT: How much contact was there? (e.g., sitting next to, live in same house, work in same office, same building) Visiting in the same home 4. DURATION of CONTACT: How long were you in contact with the COVID-19 patient? (e.g., a few seconds, passed by person, a few minutes, live with the patient) 10 hours 5. DATE of CONTACT: When did you have contact with a COVID-19 patient? (e.g., how many days ago) 07/05 6. TRAVEL: Have you traveled out of the country recently? If so, When and where? * Also ask about [id number] travel, since the [facility] has identified some high risk cities for community spread in the . * Note: Travel becomes less relevant if there is widespread community transmission where the patient lives. none 7. COMMUNITY SPREAD: Are there lots of cases of COVID-19 (community spread) where you live? (See public health department website, if unsure) * MAJOR community spread: high number of cases; numbers of cases are increasing; many people hospitalized. * MINOR community spread: low number of cases; not increasing; few or no people hospitalized Major community spread 8. SYMPTOMS: Do you have any symptoms? (e.g., fever, cough, breathing difficulty) Fever and cough 9. OR : Is there any chance you are ? When was your last menstrual period? Did you deliver in the last 2 weeks? no 10. HIGH RISK: Do you have any heart or lung problems? Do you have a weak immune system? (e.g., CHF, COPD, asthma, HIV positive, chemotherapy, renal failure, diabetes mellitus, sickle cell anemia) Asthma and lupus Protocols used: CORONAVIRUS (COVID-19) [id number] * Telephone Encounter - Molina Lao ATC - 07/24/2019 11:41 AM CDT Images from the original note were not included. Travel Screening Question Response Do you have any of the following symptoms? Fever;Cough;Sore throat;Chills;Diarrhea;Muscle pain (Temp is 101.3 today. Symptoms began about 521-20.) In the last month, have you been in contact with someone who was confirmed or suspected to have Coronavirus / COVID-19? Yes Have you traveled internationally in the last month? No Travel History Travel since 06/24/19 No documented travel since 06/24/19 Patients whose symptoms require immediate emergency assistance should be directed to contact 91 for emergency assistance. If the triage nurse is calling 911, notify them of the positive screening. Screening Positive/Negative? 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 Symptom details: ?? Date that symptoms started: 07-17-19 Type of symptoms: Fever;Cough;Sore throat;Chills;Diarrhea;Muscle pain (Temp is 101.3 today. Symptoms began about 07-17-19.) Development of symptoms within 14 days of travel: No ?? Has patient been seen / diagnosis / tests completed since onset of symptoms: No ??? Transfer to network architect - Based on the information you provided, your initial screen indicates that you are at risk for having COVID-19 and should have some additional questioning. I am going to transfer you to another nurse to help you further. Had an exposure from a friend who tested positive. MOLINA LAO ATC documented in this encounter Plan of Treatment Not on file documented as of this encounter Visit Diagnoses Not on filedocumented in this encounter Additional Health Concerns Assessment Noted Time PHQ-9 Depression Total Score: 0 03/25/19 20 10:00 AM SOFTWARE ENGINEERING SPECIALIST documented as of this encounter Care Teams Amf Mechanic Relationship Specialty Start Date End Date Gayla Barker, JAZZ SINGER, TOOL SMITH [address] [place] [address] PCP - General Advanced Practice Nurse 03/25/19 documented as of this encounter
--- OUTSIDE RECORDS SUMMARY | 2024-02-24 19:47 | XMS_ITS | Encounter Summary ---
Author Organization [facility] Address [address] [place] [address] Phone Care Team Providers Care Research Epidemiologist Name Role Phone Gayla Barker APRN, CIRCUIT WALKER Primary Care Provider Encounter Details Date Type Department Care Team ([facility] Contact Info) Description 08/08/2019 [facility] [address] [place] [address] Gayla Barker APRN, CIRCUIT WALKER [address] [place] [address] Social History Tobacco Use Types [...] on file Legal Sex Female 10:27 AM SALES REPRESENTATIVE Gender Identity Not on file Sexual Orientation Not on file COVID-19 Exposure Response Date Recorded In the last month, have you been in contact with someone who was confirmed or suspected to have Coronavirus / COVID-19? Yes 08/06/2019 3:24 PM CDT documented as of this encounter Miscellaneous Notes * Telephone Encounter - Gilmar Guzman ATC - 08/08/2019 1:31 PM CDT Pt called stating she was supposed to be tested for COVID today at the prompt care location in [place]. Pt states she missed her appt at 11am and needs to be rescheduled. I informed the pt we do not do scheduling for any prompt care clinics, and suggested she call back the prompt care location to reschedule with them, since they run their own schedules, not the COVID hotline. documented in this encounter Plan of Treatment Not on file documented as of this encounter Visit Diagnoses Not on filedocumented in this encounter Additional Health Concerns Infection Onset Date Last Indicated Resolved Time COVID - 19 08/06/2019 08/10/2019 08/13/2019 7:37 AM CDT Assessment Noted Time PHQ-9 Depression Total Score: 0 03/25/19 10:00 AM SALES REPRESENTATIVE documented as of this encounter Care Teams Research Epidemiologist Relationship Specialty Start Date End Date Gayla Barker, FAMILY PRACTICE MEDICAL DOCTOR, CIRCUIT WALKER [address] [place] [address] PCP - General Advanced Practice Nurse 03/25/19 documented as of this encounter
--- OUTSIDE RECORDS SUMMARY | 2024-02-24 19:47 | XMS_ITS | Encounter Summary ---
Author Organization [facility] Address [address] 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 Yes 08/06/2019 3:24 PM CDT documented as of this encounter Miscellaneous Notes * Telephone Encounter - Katharina Briceno RN - 08/07/2019 7:06 PM CDT Called pt regarding no show for covid swab, no answer. documented in this encounter Plan of Treatment Not on file documented as of this encounter Visit Diagnoses Not on filedocumented in this encounter Additional Health Concerns Infection Onset Date Last Indicated Resolved Time COVID - 19 08/06/2019 08/10/2019 08/13/2019 7:37 AM CDT Assessment Noted Time PHQ-9 Depression Total Score: 0 03/25/19 10:00 AM TOWER LOADER OPERATOR documented as of this encounter Care Teams Class B Truck Driver Relationship Specialty Start Date End Date Gayla Barker, PATROL MAN, ARCADE GAMES MECHANIC [address] [place] [address] PCP - General Advanced Practice Nurse 03/25/19 documented as of this encounter
--- OUTSIDE RECORDS SUMMARY | 2024-02-24 19:47 | XMS_ITS | Encounter Summary ---
Author Organization [facility] Address [address] 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 No / Unsure 07/13/2019 7:56 AM CDT documented as of this encounter Miscellaneous Notes * Telephone Encounter - Angelique Crisostomo RN - 07/18/2019 8:36 AM CDT Opened in error documented in this encounter Plan of Treatment Not on file documented as of this encounter Visit Diagnoses Not on filedocumented in this encounter Additional Health Concerns Assessment Noted Time PHQ-9 Depression Total Score: 0 03/25/19 10:00 AM ASP NET PROGRAMMER documented as of this encounter Care Teams Indoor Sports Centre Manager Relationship Specialty Start Date End Date Gayla Barker, TRANSFORMER REPAIRER, ENGINEERING TECHNICAL SPECIALIST [address] [place] [address] PCP - General Advanced Practice Nurse 03/25/19 documented as of this encounter
--- OUTSIDE RECORDS SUMMARY | 2024-02-24 19:47 | XMS_ITS | Encounter Summary ---
Author Organization [facility] Address [address] [place] [address] Phone Care Team Providers Care Bulk Fluids Handler Name Role Phone Gayla Barker APRN, MINI LAB OPERATOR Primary Care Provider Reason for Visit * Reason Onset Date Comments COVID-19 08/16/2019 Encounter Details Date Type Department Care Team ([facility] Contact Info) Description 08/16/2019 Nurse Triage 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 Yes 08/16/2019 11:39 AM CDT documented as of this encounter Miscellaneous Notes * Telephone Encounter - Nallely Noe RN - 08/16/2019 11:45 AM CDT Nurse to triage according to symptoms. SITUATION: Patient calling with Cough;Vomiting;Diarrhea;Abdominal pain;Shortness of breath;Chills;Joint pain;Muscle pain;Sore throat;Severe headache;Weakness;Bruising or bleeding BACKGROUND: Patient was tested 1 week ago for COVID and was negative. Patient reports that she has been tested 5-6 times for COVID and it has always been negative. Patient went to the [facility] last Sunday and they did a chest x- ray, COVID swab, RPA, Double stranded DNA test and patient was sent home due to all testing being negative. 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 Patient reports history of Lupus, Asthma, and Kidney disease ASSESSMENT: Symptom Description / Location: Patient reports she has had symptoms on and off since the end of April. Patient reports she became better in Mid May and has now had symptoms again for 4 weeks. Patient reports cough that started 4 days ago. Patient reports a dry cough. Patient denies any coughing spells that are severe enough to cause vomiting. Patient reports cough is worse in the morning and at night. Patient reports shortness of breath that started this week. Patient reports shortness of breath at all times that is minimal. Patient denies chest tightness. Patient denies any noisy breathing or wheezing. Patient reports using her Albuterol inhaler that has made symptoms worse. Patient reports nausea and vomiting the last few days. Patient denies blood in her emesis. Patient reports vomiting x2-3/day. Patient reports eating and drinking well. Patient reports abdominal pain in upper abdomen. Patient reports she did have diarrhea that has now resolved at the beginning of the month. Patient reports bright red blood in diarrhea that is now resolved. Patient reports chills, but denies fever at this time. Patient reports muscle and joint pain that is generalized. Patient reports a sorethroat that started last week and was prescribed Magic mouth wash that helps a little for her sore throat. Patient denies feeling that her throat is closing in or having difficulty swallowing. Patient reports headache that is intermittent, but she is not currently having this symptoms. Patient den ies changes with vision during headaches. Patient speaking in full sentences without difficulty at this time. Patient does not sound to be in any distress at this time. Patient reports bruising easily due to taking Prednisone. Patient reports weakness and fatigue. Patient reports faina horses in her legs. Patient denies loss of taste or smell. Pain (0-10): Generalized body aches 5/10 Temp: 97.4 F forehead This morning Treatment / Response: Albuterol inhaler makes coughing worse Magic Mouth wash that helps a little with her sore throat. 30 mg Prednisone helps with muscle aches Excedrin Migraine unknown dosage (takes two capsules) Mucinex unknown dosage Delsym unknown dosage Benadryl unknown dosage (1 gel capsule) Medications have helped with symptoms RECOMMENDATION: See care advice and disposition for Guideline Patient to be scheduled with a [facility] Physician today 08/16/2019. Patient's call became disconnected before this RN was able to give patient instructions and recommendations. This RN was unableto schedule a [facility] Physician's visit due to being unable to contact patient. First positive answer recorded, all responses to prior questions were negative. If symptoms increase, change, or if new symptoms develop, call your HCP or call back. Recommendations were based on caller information and are not a diagnosis. Verified and reviewed all triage information with caller. Direct patient disposition to appropriate level of care including giving care advice. Patients whose symptoms require immediate emergency assistance should be directed to contact 911 for emergency assistance. If the triage nurse is calling 911, notify them of the positive screening. For disposition of being seen by a provider in 24 hours or less or discuss with PCP: Schedule VIDEO or TELEPHONE appt. with [facility] provider. For Home Care advice: Patient counseled to [...] them to send request for note through [facility] MyChart or call PCP office. (Per CDC: Employers should not require a positive COVID-19 test result or a healthcare provider's note for employees who are sick to validate their illness, qualify for sick leave,or to return to work. [facility] is [...] (i.e. cough, SOB) AND 3. At least 7 days have passed since your symptoms first appeared Caller verbalizes understanding of the above information. Reason for Disposition ??? [1] Symptoms of COVID-19 (e.g., cough, fever, SOB, or others) AND [2] within 14 days of EXPOSURE (close contact) with diagnosed or suspected COVID-19 patient ? ? MILD difficulty breathing (e.g., minimal/no SOB at rest, SOB with walking, pulse <100) ? ? HIGH RISK patient (e.g., age > 64 years, diabetes, heart or lung disease, weak immune system) ??? [1] Symptoms of COVID-19 (e.g., cough, fever, SOB, or others) AND [2] lives in an area with community spread Answer Assessment - Initial Assessment Questions 1. CLOSE CONTACT: Who is the person with the confirmed or suspected COVID-19 infection that you were exposed to? Patient's friend tested positive for COVID. Patient also works in a high area for COVID and feels she has been exposed multiple times 2. PLACE of CONTACT: Where were you when you were exposed to COVID-19? (e.g., home, school, medical waiting room; which city?) Around friend mother's day weekend and patient's families house 3. TYPE of CONTACT: How much contact was there? (e.g., sitting next to, live in same house, work in same office, same building) Patient was sitting more then six feet away from friend 4. DURATION of CONTACT: How long were you in contact with the COVID-19 patient? (e.g., a few seconds, passed by person, a few minutes, live with the patient) Patient reports being around friend for 6 hours 5. DATE of CONTACT: When did you have contact with a COVID-19 patient? (e.g., how many days ago) July 06, 2019 6. TRAVEL: Have you traveled out of the country recently? If so, When and where? * Also ask about [id number] travel, since the CDC has identified some high- risk cities for community spread in the . * Note: Travel becomes less relevant if there is widespread community transmission where the patient lives. None 7. COMMUNITY SPREAD: Are there lots of cases of COVID-19 (community spread) where you live? (See public health department website, if unsure) Wide spread 8. SYMPTOMS: Do you have any symptoms? (e.g., fever, cough, breathing difficulty) Cough;Vomiting;Diarrhea;Abdominal pain;Shortness of breath;Chills;Joint pain;Muscle pain;Sore throat;Severe headache;Weakness;Bruising or bleeding 9. OR : Is there any chance you are ? When was your last menstrual period? Did you deliver in the last 2 weeks? No Menstrual cycle 08/04/2019 10. HIGH RISK: Do you have any heart or lung problems? Do you have a weak immune system? (e.g., CHF, COPD, asthma, HIV positive, chemotherapy, renal failure, diabetes mellitus, sickle cell anemia) Lupus, Asthma, Chronic Kidney Disease Protocols used: CORONAVIRUS (COVID-19) [id number], CORONAVIRUS (COVID-19) DIAGNOSED OR [id number] This RN spoke to patient and was disconnected during the call. This RN called patient back and was able to speak with patient to continue Triage Process. Patient reported that her phone went during the call. During the second attempt of the Triage Process this RN became disconnected from patient once again. This RN made 4 attempts to reach patient and received a voicemail box each time. ThisRN left a generalized message for patient asking patient to call the RN back at the hotline (non-specified) to complete process (non-specified). This RN attempted to also call patient's , Jack, listed as PDR. Jack did not answer the phone and no message was left on his phone due to no ident ification of person on voicemail. Patient did screen Positive and needs to be scheduled to speak with a COVID Physician hotline provider or PCP. * Telephone Encounter - Angela Joel RN - 08/16/2019 11:38 AM CDT Images from the original note were not included. Travel Screening Question Response Do you have any of the following symptoms? Cough;Vomiting;Diarrhea;Abdominal pain;Shortness of breath;Chills;Joint pain;Muscle pain;Sore throat;Severe headache;Weakness;Bruising or bleeding In the last month, have you been in contact with someone who was confirmed or suspected to have Coronavirus / COVID-19? Yes Have you traveled internationally in the last month? 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 Symptom details: ?? Date that symptoms started: 08/09/19 Type of symptoms: Cough;Vomiting;Diarrhea;Abdominal pain;Shortness of breath;Chills;Joint pain;Muscle pain;Sore throat;Severe headache;Weakness;Bruising or bleeding Development of symptoms within 14 days of travel: No ?? Has patient been seen / diagnosis / tests completed since onset of symptoms: tested negative [id number] 1 week ago, symptoms not improving ??? Transfer to exceptional needs teacher - Based on the information you provided, your initial screen indicates that you are at risk for having COVID-19 and should have some additional questioning. I am going to transfer you to another nurse to help you further. ANGELA JOEL RN documented in this encounter Plan of Treatment Not on file documented as of this encounter Visit Diagnoses Not on filedocumented in this encounter Additional Health Concerns Assessment Noted Time PHQ-9 Depression Total Score: 0 03/25/19 10:00 AM DRIP MOLDER documented as of this encounter Care Teams Bulk Fluids Handler Relationship Specialty Start Date End Date Gayla Barker, SILVERWARE WASHER, MINI LAB OPERATOR [address] [place] [address] PCP - General Advanced Practice Nurse 03/25/19 documented as of this encounter
--- OUTSIDE RECORDS SUMMARY | 2024-02-24 19:48 | XMS_ITS | Encounter Summary ---
Author Organization [facility] Address [address] [facility] [place] [address] Phone Care Team Providers Care Grails Web Application Developer Name Role Phone Gayla Barker APRN, HARSHA Primary Care Provider Reason for Visit * Reason Onset Date Comments Medication Refill 07/09/2019 Encounter Details Date Type Department Care Team (Late st Contact Info) Description 07/09/2019 Refill [facility] [place] [address] [place] [address] Gayla Barker APRN, RESEARCH ASST [address] [place] [address] Medication Refill Social History Tobacco [...] on file Legal Sex Female 10:27 AM TRIAL MANAGEMENT ASSOCIATE Gender Identity Not on file Sexual Orientation Not on file COVID-19 Exposure Response Date Recorded In the last month, have you been in contact with someone who was confirmed or suspected to have Coronavirus / COVID-19? No / Unsure 07/07/2019 11:58 AM CDT documented as of this encounter Miscellaneous Notes * Telephone Encounter - Gayla Barker APN, CNP - 07/09/2019 9:32 AM CDT [place] prescription monitoring site reviewed. Medication approved * Telephone Encounter - Gayla Patel, RN - 07/09/2019 9:27 AM CDT Requested Prescriptions Pending Prescriptions Disp Refills ALPRAZolam (XANAX) 0.25 MG Tablet 30 Tab 0 Sig: Take 1 Tab by mouth 3 times daily as needed for Anxiety. There is no refill protocol information for this order * Telephone Encounter - Gayla Patel RN - 07/09/2019 8:20 AM CDT ----- Message from Minal Egan sent at 07/09/2019 8:10 AM CDT ----- RFC: FAX REFILL REQUEST Name of medication needed? Xanax .025mg Take one tablet three times daily Pharmacy [facility] 30 or 90 day supply? 30 Provider Gayla Barker documented in this encounter Plan of Treatment Not on file documented as of this encounter Visit Diagnoses Not on filedocumented in this encounter Additional Health Concerns Assessment Noted Time PHQ-9 Depression Total Score: 0 03/25/19 20 10:00 AM TRIAL MANAGEMENT ASSOCIATE documented as of this encounter Care Teams Grails Web Application Developer Relationship Specialty Start Date End Date Gayla Barker, ANNIE, HARSHA [address] [place] [address] PCP - General Advanced Practice Nurse 03/25/19 documented as of this encounter
--- OUTSIDE RECORDS SUMMARY | 2024-02-24 19:48 | XMS_ITS | Encounter Summary ---
Author Organization [facility] Address [address] [place] [address] Phone Care Team Providers Care Tare Worker Name Role Phone Gayla Barker APRN, HARSHA Primary Care Provider Reason for Visit * Reason Onset Date Comments Results 04/29/2019 x-ray Encounter Details Date Type Department Care Team (Late st Contact Info) Description 04/29/2019 Telephone [facility] [place] [address] [place] [address] Gayla Barker APRN, LINE PALLETIZER [address] [place] [address] Results (x-ray) Social History Tobacco [...] on file Legal Sex Female 10:27 AM RETAIL WIRELESS ASSOCIATE Gender Identity Not on file Sexual Orientation Not on file documented as of this encounter Miscellaneous Notes * Telephone Encounter - Leti Gusman RN - 04/29/2019 10:28 AM RETAIL WIRELESS ASSOCIATE Phoned patient with x-ray results. Patient aware and verbalized understanding. No questions for instructional writer. [place] WIRELESS ASSOCIATE * Telephone Encounter - Leti Gusman RN - 04/29/2019 10:28 AM RETAIL WIRELESS ASSOCIATE ----- Message from Gayla Barker APN, CNP sent at 04/29/2019 10:02 AM RETAIL WIRELESS ASSOCIATE ----- Thoracic vertebral body heights and anterior posterior alignment is maintained. [place] WIRELESS ASSOCIATE documented in this encounter Plan of Treatment Not on file documented as of this encounter Visit Diagnoses Not on filedocumented in this encounter Additional Health Concerns Assessment Noted Time PHQ-9 Depression Total Score: 0 03/25/19 10:00 AM RETAIL WIRELESS ASSOCIATE documented as of this encounter Care Teams Tare Worker Relationship Specialty Start Date End Date Gayla Barker APRN, CNP [address] [place] [address] PCP - General Advanced Practice Nurse 03/25/19 documented as of this encounter
--- OUTSIDE RECORDS SUMMARY | 2024-02-24 19:48 | XMS_ITS | Encounter Summary ---
Author Organization [facility] Address [address] [place] [address] Phone Care Team Providers Care Traveling Engineer Name Role Phone Gayla Barker APRN, SHIPPING AND RECEIVING SUPERVISOR Primary Care Provider Reason for Visit * Reason Onset Date Comments Abdominal Pain 05/16/2019 Encounter Details Date Type Department Care Team (Late st Contact Info) Description 05/16/2019 Nurse Triage [facility] [address] [place] [address] Gayla Barker, ANNIE, SHIPPING AND RECEIVING SUPERVISOR [address] [place] [address] Abdominal Pain Social History Tobacco Use Types [...] Date Recorded PHQ-2 Score 0 03/25/2019 Comments Yes Sex and Gender Information Value Date Recorded Sex Assigned at Not on file Legal Sex Female 10:27 AM CERTIFIED HAND THERAPIST Gender Identity Not on file Sexual Orientation Not on file COVID-19 Exposure Response Date Recorded In the last month, have you been in contact with someone who was confirmed or suspected to have Coronavirus / COVID-19? No / Unsure 05/14/2019 1:06 PM CDT documented as of this encounter Miscellaneous Notes * Telephone Encounter - Alyssa Almodovar RN - 05/16/2019 9:26 AM CDT SITUATION: Abdominal pain BACKGROUND: Symptoms started 05/13 ASSESSMENT: Symptom Description / Location: Patient is calling and states she's having cramping that's pretty constant in the lower abdomen and yesterday had some spotting yesterday. She states today, she's had lots of white discharge, but no bleeding. Pain (0-10): 11/05 Temp: denies fever Treatment / Response: none LMP / / : Less than 4 weeks per 05/13 telephone encounter RECOMMENDATION: See care advice and disposition for Guideline First positive answer recorded, all responses to prior questions were negative. If symptoms increase, change or if new symptoms develop, call your HCP or call back. Recommendations were based on caller information and is not a diagnosis. Verified and reviewed all triage information with caller. Reason for Disposition ? ? Abdominal pain and < 20 weeks ??? MODERATE-SEVERE abdominal pain Protocols used: ABDOMINAL PAIN - FEMALE-A-OH, - ABDOMINAL PAIN LESS THAN 20 WEEKS EGA-A-OH Patient is going to go to [facility] ED to be evaluated. documented in this encounter Plan of Treatment Not on file documented as of this encounter Visit Diagnoses Not on filedocumented in this encounter Additional Health Concerns Assessment Noted Time PHQ-9 Depression Total Score: 0 03/25/19 10:00 AM CERTIFIED HAND THERAPIST documented as of this encounter Care Teams Traveling Engineer Relationship Specialty Start Date End Date Gayla Barker, CESSPOOL CLEANER, SHIPPING AND RECEIVING SUPERVISOR [address] [place] [address] PCP - General Advanced Practice Nurse 03/25/19 documented as of this encounter
--- OUTSIDE RECORDS SUMMARY | 2024-02-24 19:48 | XMS_ITS | Encounter Summary ---
Author Organization [employer] Care Team Providers Care Service Center Supervisor Name Role Phone Gayla Barker APRN, HARSHA Primary Care Provider Encounter Details Date Type Department Care Team (Latest Contact Info) Description 05/18/2019 Travel Social History Tobacco Use Types Packs/Day [...] on file Legal Sex Female 10:27 AM HAND PATTERN MARKER Gender Identity Not on file Sexual Orientation Not on file COVID-19 Exposure Response Date Recorded In the last month, have you been in contact with someone who was confirmed or suspected to have Coronavirus / COVID-19? No / Unsure 05/18/2019 9:49 AM CDT documented as of this encounter Plan of Treatment Not on file documented as of this encounter Visit Diagnoses Not on filedocumented in this encounter Additional Health Concerns Assessment Noted Time PHQ-9 Depression Total Score: 0 03/25/19 20 10:00 AM HAND PATTERN MARKER documented as of this encounter Care Teams Service Center Supervisor Relationship Specialty Start Date End Date Gayla Barker APRN, HARSHA [address] [place] [address] PCP - General Advanced Practice Nurse 03/25/19 documented as of this encounter
--- OUTSIDE RECORDS SUMMARY | 2024-02-24 19:48 | XMS_ITS | Encounter Summary ---
Author Organization [facility] Address [address] [facility] [place] [place] [address] Phone Care Team Providers Care Hand Hose Cutter Name Role Phone Gayla Barker APRN, HARSHA Primary Care Provider Reason for Visit * Reason Onset Date Comments Medication Refill 06/18/2019 Encounter Details Date Type Department Care Team (Late st Contact Info) Description 06/18/2019 Refill [facility] [place] [facility] [place] [address] [place] [address] Gayla Barker APRN, TWILL CUTTER [address] [place] [address] Medication Refill Social History Tobacco [...] file Legal Sex Female 10:27 AM DIRECT MAIL COORDINATOR Gender Identity Not on file Sexual Orientation Not on file COVID-19 Exposure Response Date Recorded In the last month, have you been in contact with someone who was confirmed or suspected to have Coronavirus / COVID-19? No / Unsure 05/31/2019 9:37 AM CDT documented as of this encounter Miscellaneous Notes * Telephone Encounter - Gayla Barker APN, CNP - 06/18/2019 12:53 PM CDT Prescription monitoring checked through [place] site. Medication approved * Telephone Encounter - Gayla Patel RN - 06/18/2019 12:36 PM CDT Requested Prescriptions Pending Prescriptions Disp Refills ALPRAZolam (XANAX) 0.25 MG Tablet 30 Tab 0 Sig: Take 1 Tab by mouth 3 times daily as needed for Anxiety. There is no refill protocol information for this order albuterol 108 (90 Base) MCG/ACT Aerosol Solution 8.5 g 0 Sig: take 2 Puffs by inhalation every 4 hours as needed for Cough (shortness of breath). There is no refill protocol information for this order * Telephone Encounter - Gayla Patel, RN - 06/18/2019 12:33 PM CDT ----- Message from Nano Gray sent at 06/18/2019 12:32 PM CDT ----- Regarding: refill ,RFC: FAX REFILL REQUEST Name of medication needed? ALPRAZolam (XANAX) 0.25 MG Tablet albuterol 108 (90 Base) MCG/ACT Aerosol Solution Pharmacy [facility] 30 or 90 day supply? 30 Provider guanaco documented in this encounter Plan of Treatment Not on file documented as of this encounter Visit Diagnoses Not on filedocumented in this encounter Additional Health Concerns Assessment Noted Time PHQ-9 Depression Total Score: 0 03/25/19 20 10:00 AM DIRECT MAIL COORDINATOR documented as of this encounter Care Teams Hand Hose Cutter Relationship Specialty Start Date End Date Gayla Barker, ANNIE, HARSHA [address] [place] [address] PCP - General Advanced Practice Nurse 03/25/19 documented as of this encounter
--- OUTSIDE RECORDS SUMMARY | 2024-02-24 19:48 | XMS_ITS | Encounter Summary ---
Author Organization [employer] Care Team Providers Care Brine Room Laborer Name Role Phone Gayla Barker APRN, HARSHA [...] file Legal Sex Female 10:27 AM PROJECT MANAGEMENT 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 No / Unsure 05/16/2019 10:03 AM CDT documented as of this encounter Plan of Treatment Not on file documented as of this encounter Visit Diagnoses Not on filedocumented in this encounter Additional Health Concerns Assessment Noted Time PHQ-9 Depression Total Score: 0 03/25/19 20 10:00 AM PROJECT MANAGEMENT ENGINEER documented as of this encounter Care Teams Brine Room Laborer Relationship Specialty Start Date End Date Gayla Barker APRN, HARSHA [address] [place] [address] PCP - General Advanced Practice Nurse 03/25/19 documented as of this encounter
--- OUTSIDE RECORDS SUMMARY | 2024-02-24 19:48 | XMS_ITS | Encounter Summary ---
Author Organization [facility] Address [address] [place] [address] Phone Care Team Providers Care Maintenance Worker Municipal Name Role Phone Gayla Barker APRN, PLANT PRODUCTION MANAGER Primary Care Provider Encounter Details Date Type Department Care Team (Late st Contact Info) Description 07/09/2019 Transcribe Orders [facility] Central Scheduling [address] [place] [id number] Carolina Delarosa MD [address] [id number] Lupus ([facility]) (Primary Dx) Social History Tobacco Use Types [...] on file Legal Sex Female 10:27 AM ACQUISITIONS LIBRARIAN Gender Identity Not on file Sexual Orientation Not on file COVID-19 Exposure Response Date Recorded In the last month, have you been in contact with someone who was confirmed or suspected to have Coronavirus / COVID-19? No / Unsure 07/07/2019 11:58 AM CDT documented as of this encounter Plan of Treatment Not on file documented as of this encounter Results * QUANTIFERON-TB GOLD PLUS (07/13/2019 9:20 AM CDT) NIL CONTROL 0.02 <8.01 IU/mL 07/16/2019 2:29 PM CDT [facility] TB ANTIGEN 1 0.00 <0.35 IU/mL 07/16/2019 2:29 PM CDT [facility] TB ANTIGEN 2 0.00 <0.35 IU/mL 07/16/2019 2:29 PM CDT [facility] MITOGEN CONTROL 8.12 >0.49 IU/mL 07/16/19 20 2:29 PM CDT [facility] INTEPRETATION TB NEGATIVE NEGATIVE, NEGATIVE (TB antigen response less than 25% of internal negative control value) 07/16/2019 2:29 PM CDT [facility] Comment:No immune response t o Mycobacterium tuberculosis antigens was noted. M. tuberculosis infection unlikely. Blood Butterfly Punctu re / Unknown 07/13/2019 9:20 AM CDT 07/13/2019 9:28 AM CDT Narrative [facility] - 07/16/2019 2:29 PM CDT A POSITIVE QUANTIFERON-TB GOLD PLUS RESULT SHOULD NOT BE THE SOLE OR DEFINITIVE BASIS FOR DETERMINING INFECTION WITH M. TUBERCULOSIS. Diagnosing or excluding tuberculosis disease, and assessing the probability of LTBI, requires a combination of epidemiological, historical, medical and diagnostic findings (e.g., acid fast bacilli (AFB) smear and culture, chest xray) that should be taken into account when interpreting QFT-Plus results. ??Furthermore, the magnitude of the measured gamma interferon level cannot be correlated to stage or degree of infection, level of immune responsiveness, or likelihood for progression to active disease. The Nil control adjusts for background (e.g., elevated levels of circulating gamma interferon or presence of heterophile antibodies). The Mitogen control serves as an internal positive control and verifies each specimen tested can produce a gamma interferon response. Low mitogen may occur with insufficient lymphocytes, reduced lymphocyte activity due to improper specimen handling, filling/mixing of the Mitogen tube, or inability of the patient's lymphocytes to generate gamma interferon. Infection with other Mycobacteria, including M. kansasii, ??M. szulgai, and M. marinum, may cause positive results. A negative QuantiFERON-TB Gold Plus result does not preclude the possibility of M. tuberculosis infection or tuberculosis disease: false negative results can be due to stage of infection (e.g., specimen obtained prior to the development of cellular immune response), co-morbid conditions which affect immune function, or other individual immunological factors. The minimum number of lymphocytes required for a reliable test result has not been established and may also be variable. The performance of the [place] format of the QuantiFERON-TB Gold Plus test has not been extensively evaluated with specimens from the following groups of individuals: 1. Individuals who have impaired or altered immune function such as those who have HIV infection or AIDS; those who have transplantation managed with immunosuppressive treatment; or others who receive immunosuppressive drugs (e.g., corticosteroids, methotrexate, azathioprine, cancer chemotherapy); and those who have other clinical conditions: diabetes, silicosis, chronic renal failure, hematological disorders (e.g., leukemia and lymphomas), and other specific malignancies (e.g., carcinoma of the head or neck and lung). 2. Individuals younger than age 17 years 3. women us Carolina Delarosa MD IMMUNOLOGY ORDERABLES Briana l Result Performing Organization Address [facility] Co de Phone Number [facility] [address] [place] [address], [place] * CULTURE, URINE (07/13/2019 9:20 AM CDT) CULTURE RESULTS MIXED GROWTH OF ONE OR MORE DISTAL URETHRAL CONTAMINANTS 07/14/2019 10:56 AM CDT [facility] Culture URINE SPECIMEN / Unknown Non-Phlebotomy Collection / Unknown 07/13/2019 9:20 AM CDT 07/13/2019 9:29 AM CDT Carolina Delarosa MD MICROBIOLOGY - GENERAL ORD ERABLES Final Result Performing Organization Address [facility] Co de Phone Number [facility] [address] [place] [address], [place] * (ABNORMAL) ANTI DOUBLE STRAND DNA (DS DNA) ANTIBODY (07/13/2019 9:20 AM CDT) DNA AB, DOUBLE STRAND 70(H) <5 IU/mL 07/14/2019 10:03 AM CDT [facility] Blood Butterfly Punctu re / Unknown 07/13/2019 9:20 AM CDT 07/13/2019 9:29 AM CDT Narrative [facility] - 07/14/2019 10:03 AM CDT <= 4 Negative 5-9 Indeterminate >= 10 Positive Antibody testing was performed by multiplex flow immunoassay on the [employer] platform. us Carolina Delarosa MD IMMUNOLOGY ORDERABLES Briana l Result Performing Organization Address [facility] Co de Phone Number [facility] [address] [place] [address], [place] * (ABNORMAL) C4 COMPLEMENT (07/13/2019 9:20 AM CDT) C4 COMPLEMENT 10(L) 15 - 57 mg/dL 07/13/2019 2:11 PM CDT [facility] Blood Butterfly Punctu re / Unknown 07/13/2019 9:20 AM CDT 07/13/2019 9:29 AM CDT us Carolina Delarosa MD CHEMISTRY ORDERABLES Final Result Performing Organization Address City/[facility]/ZIP Co de Phone Number [facility] [address] [place] [address], [place] * (ABNORMAL) C3 COMPLEMENT GLOBULIN B-1C (07/13/2019 9:20 AM CDT) C3 COMPLEMENT 79(L) 83 - 193 mg/dL 07/13/2019 2:11 PM CDT [facility] Blood Butterfly Punctu re / Unknown 07/13/2019 9:20 AM CDT 07/13/2019 9:29 AM CDT us Carolina Delarosa MD CHEMISTRY ORDERABLES Final Result [facility] [address] [place] [address], documented in this encounter Visit Diagnoses Diagnosis Lupus- Primary Systemic lupus erythematosus documented in this encounter Additional Health Concerns Assessment Noted Time PHQ-9 Depression Total Score: 0 03/25/19 20 10:00 AM ACQUISITIONS LIBRARIAN documented as of this encounter Care Teams Maintenance Worker Municipal Relationship Specialty Start Date End Date Gayla Barker, MOBILE SALES EXPERT, PLANT PRODUCTION MANAGER [address] [place] [address] PCP - General Advanced Practice Nurse 03/25/19 documented as of this encounter
--- OUTSIDE RECORDS SUMMARY | 2024-02-24 19:48 | XMS_ITS | Encounter Summary ---
Author Organization [facility] Address [address] [place] [address] Phone Care Team Providers Care Reject Opener Name Role Phone Gayla Barker APRN, COORDINATOR OF ONLINE PROGRAMS Primary Care Provider Encounter Details Date Type Department Care Team (Late st Contact Info) Description 05/30/2019 Care Management [facility] [address] [place] [address] Gayla Barker APRN, COORDINATOR OF ONLINE PROGRAMS [address] [place] [address] Social History Tobacco Use Types [...] on file Legal Sex Female 10:27 AM MERCHANDISER Gender Identity Not on file Sexual Orientation Not on file COVID-19 Exposure Response Date Recorded In the last month, have you been in contact with someone who was confirmed or suspected to have Coronavirus / COVID-19? No / Unsure 05/27/2019 10:19 AM CDT documented as of this encounter Miscellaneous Notes * Care Plan - Gayla Barker APN, HARSHA - 05/30/2019 3:07 PM CDT Chest x-ray ordered. documented in this encounter Plan of Treatment Not on file documented as of this encounter Procedures Procedure Name Priority Date/Time Associated Diagnosis Comments XR CHEST 2 VIEWS Routine 05/30/2019 4:58 PM CDT Rib pain documented in this encounter Results * XR CHEST 2 VIEWS (05/30/2019 4:58 PM CDT) Anatomical Region Laterality Modality Chest N/A Digital Radiogra phy 05/30/2019 5:04 PM CDT Impressions 05/30/2019 5:07 PM CDT IMPRESSION: ??No acute cardiopulmonary process. Narrative 05/30/2019 5:07 PM CDT EXAM DESCRIPTION: ??XR CHEST 2 VIEWS REASON FOR STUDY: ??Pleurodynia, cough, and rib pain, onset 15 days ago TECHNIQUE: ??Frontal and lateral radiographic views of the chest acquired. COMPARISON: ??Chest radiograph 05/19/2019 FINDINGS: ??LUNGS/PLEURA: No focal consolidation or pneumothorax. No pleural effusion. HEART/MEDIASTINUM: The cardiac silhouette and mediastinal contours are within normal limits. HARDWARE/LINES/TUBES: None. BONES: No acute findings. OTHER: No other significant finding. THIS IS AN ELECTRONICALLY VERIFIED FINAL REPORT 05/30/2019 5:04 PM - Electronically signed by Cirilo Joiner M.D. CN: BLAYNE D: ??05/30/2019 5:04 PM T: ??05/30/2019 5:04 PM Report ID: [id number] Reading Location: ??[id number] Procedure Note Cirilo Joiner MD - 05/30/2019 EXAM DESCRIPTION: XR CHEST 2 VIEWS REASON FOR STUDY: Pleurodynia, cough, and rib pain, onset 15 days ago TECHNIQUE: Frontal and lateral radiographic views of the chest acquired. COMPARISON: Chest radiograph 05/19/2019 FINDINGS: LUNGS/PLEURA: No focal consolidation or pneumothorax. No pleural effusion. HEART/MEDIASTINUM: The cardiac silhouette and mediastinal contours are within normal limits. HARDWARE/LINES/TUBES: None. BONES: No acute findings. OTHER: No other significant finding. THIS IS AN ELECTRONICALLY VERIFIED FINAL REPORT 05/30/2019 5:04 PM - Electronically signed by Cirilo Joiner M.D. CN: BLAYNE Report ID: [id number] Reading Location: [place] [address] IMPRESSION: No acute cardiopulmonary process. us Gayla Barker APRN, CNP IMG DIAGNOSTIC ORDERABL ES Final Result documented in this encounter Visit Diagnoses Diagnosis Rib pain- Primary Chest pain, unspecified documented in this encounter Additional Health Concerns Assessment Noted Time PHQ-9 Depression Total Score: 0 03/25/19 20 10:00 AM MERCHANDISER documented as of this encounter Care Teams Reject Opener Relationship Specialty Start Date End Date Gayla Barker APRN, HARSHA [address] [place] [address] PCP - General Advanced Practice Nurse 03/25/19 documented as of this encounter
--- OUTSIDE RECORDS SUMMARY | 2024-02-24 19:48 | XMS_ITS | Encounter Summary ---
Author Organization [facility] Address [address] [place] [address] Phone Care Team Providers Care Child Care Team Lead Name Role Phone Gayla Barker APRN, ENERGY EFFICIENCY ENGINEER Primary Care Provider Reason for Visit * Reason Onset Date Comments Referral 07/11/2019 Encounter Details Date Type Department Care Team (Late st Contact Info) Description 07/11/2019 Telephone [facility] [address] [place] [address] Gayla Barker, ANNIE, ENERGY EFFICIENCY ENGINEER [address] [place] [address] Referral Social History Tobacco Use Types Packs/Day [...] on file Legal Sex Female 10:27 AM PECAN GATHERER Gender Identity Not on file Sexual Orientation Not on file COVID-19 Exposure Response Date Recorded In the last month, have you been in contact with someone who was confirmed or suspected to have Coronavirus / COVID-19? No / Unsure 07/07/2019 11:58 AM CDT documented as of this encounter Miscellaneous Notes * Telephone Encounter - Leti Doan RN - 07/11/2019 9:37 AM CDT Joy from Dr. Tilley-rheumotology office calling and reporting that they have attempted to reach patient 3 times. All times have been unsuccessful. Patient was going to have to be self pay per Joy. Reviewed phone number in [employer]. Does provider have any further recommendations? Please advise. documented in this encounter Plan of Treatment Not on file documented as of this encounter Visit Diagnoses Not on filedocumented in this encounter Additional Health Concerns Assessment Noted Time PHQ-9 Depression Total Score: 0 03/25/19 10:00 AM PECAN GATHERER documented as of this encounter Care Teams Child Care Team Lead Relationship Specialty Start Date End Date Gayla Barker, RECREATION DIRECTOR, ENERGY EFFICIENCY ENGINEER [address] [place] [address] PCP - General Advanced Practice Nurse 03/25/19 documented as of this encounter
--- OUTSIDE RECORDS SUMMARY | 2024-02-24 19:48 | XMS_ITS | Encounter Summary ---
Author Organization [facility] Address [address] 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 Yes 05/23/2019 9:39 AM CDT documented as of this encounter Last Filed Vital Signs Vital Sign Reading Time Taken Comments Blood Pressure 138/83 05/23/2019 9:36 AM CDT Pulse 115 05/23/2019 9:36 AM CDT Temperature 36.7 ??C (98.1 ??F) 05/23/2019 9:36 AM CD T Respiratory Rate 20 05/23/2019 9:36 AM CDT Oxygen Saturation 100% 05/23/2019 9:36 AM CDT Inhaled Oxygen Concentration - - Weight 72.6 kg (160 lb) 05/23/2019 9:36 AM CDT Height 160 cm (5' 3 ) 05/23/2019 9:36 AM CDT Body Mass Index 28.34 05/23/2019 9:36 AM CDT documented in this encounter Discharge Instructions * Attachments The following attachments cannot be sent through Care Everywhere. * Viral Syndrome (Adult) (Congolese) documented in this encounter Medications at Time of Discharge hydroxychloroquin e (PLAQUENIL) 200 MG Tablet Take 1 Tab by mouth daily. 90 Tab 3 05/09/2019 albuterol 108 (90 Base) MCG/ACT Aerosol Solution take 2 Puffs by inhalation every 4 hours as needed for Cough (shortness of breath). 8.5 g 05/23/2019 06/18/19 20 ALPRAZolam (XANAX) 0.25 MG Tablet Take 1 Tab by mouth 3 times daily as needed for Anxiety. 30 Tab 05/09/2019 06/04/19 20 clomiPHENE (CLOMID) 50 MG Tablet Take 50 mg by mouth. 03/31/2019 06/05/19 20 folic acid (FOLVITE) 1 MG Tablet Take 1 mg by mouth. 04/01/2019 06/23/19 20 guaiFENesin (ROBITUSSIN) 100 MG/5ML Solution Take 10 mL by mouth every 6 hours as needed for Cough. 240 mL 05/23/2019 06/23/19 20 levETIRAcetam (KEPPRA) 500 MG Tablet Take 1 Tab by mouth 2 times daily. 60 Tab 04/07/2019 06/05/19 20 meloxicam (MOBIC) 15 MG Tablet Take 1 Tab by mouth daily. 90 Tab 3 04/01/2019 06/05/19 20 metroNIDAZOLE (METROGEL VAGINAL) 0.75 % Gel 1 Applicatorful by Vaginal route nightly. 70 g 05/16/2019 06/05/19 20 omeprazole (PRILOSEC) 20 MG CAPSULE DELAYED RELEASE TK 1 C PO QD 03/06/2019 06/05/19 20 predniSONE (DELTASONE) 10 MG Tablet Take 1 Tab by mouth daily. 90 Tab 3 05/09/2019 07/25/19 20 predniSONE (DELTASONE) 5 MG Tablet Take 1 Tab by mouth daily. 90 Tab 3 05/09/2019 07/25/19 20 Vit-Fe Fumarate-FA ( VITAMINS PO) Take 1 Tab by mouth daily. 06/05/19 20 silver sulfADIAZINE (SILVADENE) 1 % Cream Apply 2 times daily. Application Site: to finger 2x/day (Description and Location) 50 g 04/01/2019 06/05/19 20 documented as of this encounter ED Notes * Faizan Loco PAC - 05/23/2019 10:32 AM CDT Post discharge, nursing staff was able to locate quantitative HCG level drawn yesterday which is decreased in comparison to 05/19/2019 levels consistent with miscarriage. Patient has been contacted with this information and instructions to call OB for monitoring and repeat HCG orders. Patient to return to ED for pelvic pain or increased vaginal bleeding. Contacted patient with number provided and left a message with call back instructions [phone] Patient returned call. Discussed decreasing HCG and likely miscarriage. Patient understanding.No pelvic pain or hemorrhage at [facility]net. Patient will follow up with OB. Cosigned by Danny Woo at 05/23/2019 5:13 PM CDT * Faizan Loco PAC - 05/23/2019 9:47 AM CDT Chief Complaint Patient presents with ??? Cough Carito Rausch is a 29 y.o. female who presents to the ED c/o upper respiratory sx of SOB, dry cough, chest pressure, body aches, and intermittent fevers present for 5 days. She is also reporting vaginal bleeding. Pt is currently estimated 4-5 weeks based on HCG levels and LNMP. She is paz ving no abdominal or pelvic pain. This is her 3rd ER visit in 1 week for similar sx. Pt states thatshe contacted [facility] outpatient COVID hotline and was told by their staff that she needs to be tested due to her COVID sx. She was hesitant to do this due to concerns for exposure so she came to the ED instead. She was afebrile at time of triage. SpO2 is 100%. She has been using the inhaler that wasprovided at her previous ER evaluation and is requesting a refill. She is requesting treatment options based on the length of illness and overall guidleines. Pt had quantitative HCG and CBC drawn yesterday by her director counseling bureau and is declining these tests today. The history is provided by the patient. No speech language pathology assistant was used. Cough Associated symptoms: fever, myalgias and shortness of breath No current facility-administered medications for this encounter. Current Outpatient Medications Medication Sig Dispense Refill ??? albuterol 108 (90 Base) MCG/ACT Aerosol Solution take 2 Puffs by inhalation every 4 hours as needed for Cough (shortness of breath). 8.5 g 0 ??? ALPRAZolam (XANAX) 0.25 MG Tablet Take 1 Tab by mouth 3 times daily as needed for Anxiety. 30 Tab 0 ??? clomiPHENE (CLOMID) 50 MG Tablet Take 50 mg by mouth. ??? folic acid (FOLVITE) 1 MG Tablet Take 1 mg by mouth. ??? guaiFENesin (ROBITUSSIN) 100 MG/5ML Solution Take 10 mL by mouth every 6 hours as needed for Cough. 240 mL 0 ??? hydroxychloroquine (PLAQUENIL) 200 MG Tablet Take 1 Tab by mouth daily. 90 Tab 3 ??? levETIRAcetam (KEPPRA) 500 MG Tablet Take 1 Tab by mouth 2 times daily. (Patient not taking: Reported on 04/28/2019) 60 Tab 0 ??? meloxicam (MOBIC) 15 MG Tablet Take 1 Tab by mouth daily. 90 Tab 3 ??? metroNIDAZOLE (METROGEL VAGINAL) 0.75 % Gel 1 Applicatorful by Vaginal route nightly. 70 g 0 ??? omeprazole (PRILOSEC) 20 MG CAPSULE DELAYED RELEASE TK 1 C PO QD ??? predniSONE (DELTASONE) 10 MG Tablet Take 1 Tab by mouth daily. 90 Tab 3 ??? predniSONE (DELTASONE) 5 MG Tablet Take 1 Tab by mouth daily. 90 Tab 3 ??? Vit-Fe Fumarate-FA ( VITAMINS PO) Take 1 Tab by mouth daily. ??? silver sulfADIAZINE (SILVADENE) 1 % Cream Apply 2 times daily. Application Site: to finger 2x/day (Description and Location) 50 g 0 Allergies Allergen Reactions ??? Medrol [Methylprednisolone] Anaphylaxis Past Medical History [...] file Gets together: Not on file Attends mormonism service: Not on file Active member of [...] History Narrative ??? Not on file BP 138/83 Pulse (!) 115 Temp 98.1 ??F (36.7 ??C) Resp 20 Ht 5' 3 (1.6 m) Wt 160 lb (72.6kg) LMP 04/14/2019 SpO2 100% BMI 28.34 kg/m?? Review of Systems Constitutional: Positive for fever. Respiratory: Positive for cough, chest tightness and shortness of breath. Genitourinary: Positive for vaginal bleeding. Musculoskeletal: Positive for myalgias. All other systems reviewed and are negative. Physical Exam Constitutional: She is oriented to person, place, and time. She appears well- developed and well-nourished. She appears ill. No distress. HENT: Head: Normocephalic and atraumatic. Eyes: Pupils are equal, round, and reactive to light. EOM are normal. Neck: Normal range of motion. Neck supple. No thyromegaly present. Cardiovascular: Normal rate, regular rhythm, normal heart sounds and intact distal pulses. No murmur heard. Pulmonary/Chest: Effort normal and breath sounds normal. No respiratory distress. She has no wheezes. She has no rales. She exhibits no tenderness. Abdominal: Soft. Bowel sounds are normal. She exhibits no distension and no mass. There is no abdominal tenderness. There is no rebound and no guarding. Musculoskeletal: Normal range of motion. General: No tenderness or edema. Neurological: She is alert and oriented to person, place, and time. No cranial nerve deficit. Skin: Skin is warm and dry. No rash noted. She is not diaphoretic. No erythema. No pallor. Psychiatric: She has a normal mood and affect. Her behavior is normal. Nursing note and vitals reviewed. Procedures MDM Labs Reviewed - No data to display No orders to display Reviewed: previous chart, nursing note and vitals Interpretation: labs Clinical Impression 1. Viral illness 2. Vaginal bleeding in , first trimester 09:45. At bedside for initial evaluation. Patient informed that she likely has COVID-19 and she is to continue self isolation as recommended at previous ED visits. She can use her discretion in getting testing performed at [facility] as she likely has the virus. Albuterol inhaler provided. Guaifenesin for cough in . Patient to follow up with director counseling bureau and OB as scheduled. Return to ED for respiratory distress. Spo2 at time of discharge 100%. By signing my name below, I, Hattie Garcia, attest that this documentation has been prepared under the direction and in the presence of Faizan Loco PA-C. Electronically Signed: Karlie Fermin. 05/23/19 10:24 AM I, Faizan Loco, personally performed the services described in this documentation. All medical record entries made by the scribe were at my direction and in my presence. I have reviewed the chartand discharge instructions and agree that the record reflects my personal performance and is accurate and complete, Faizan Loco, 05/23/19 10:24 AM Cosigned by Danny Woo at 05/23/2019 5:13 PM CDT * Ezra Aguiar RN - 05/23/2019 9:40 AM CDT Pt to triage with c/o SOB, chest pressure, intermittent fevers, non-productive cough. Pt states that she has been seen in this ED twice for the same sx. She now mentions that a friend of hers tested positive for COVID-19, and that she was in contact with her 2 weeks ago. documented in this encounter Plan of Treatment Not on file documented as of this encounter Visit Diagnoses Diagnosis Viral illness- Primary Unspecified viral infection, in conditions classified elsewhere and of unspecified site Vaginal bleeding in , first trimester documented in this encounter Additional Health Concerns Assessment Noted Time PHQ-9 Depression Total Score: 0 03/25/19 20 10:00 AM ENGINEERING DOCUMENT CONTROL CLERK documented as of this encounter Care Teams Control Valve Technician Relationship Specialty Start Date End Date Gayla Barker, MORTGAGE ANALYST, LOUVER DOOR ASSEMBLER [address] [place] [address] PCP - General Advanced Practice Nurse 03/25/19 documented as of this encounter
--- OUTSIDE RECORDS SUMMARY | 2024-02-24 19:48 | XMS_ITS | Encounter Summary ---
Author Organization [facility] Address [address] [place] [address] Phone Care Team Providers Care Logistics Manager Name Role Phone Gayla Barker APRN, REVENUE STAMP CUTTER Primary Care Provider Reason for Visit * Reason Onset Date Comments Problem 05/22/2019 5 weeks, body aches are present and concerning to patient - Thinks she must have COVID19 Asthma 05/22/2019 Encounter Details Date Type Department Care Team (Late st Contact Info) Description 05/22/2019 Nurse Triage [facility] Call Center 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 No / Unsure 05/21/2019 3:08 PM CDT documented as of this encounter Miscellaneous Notes * Telephone Encounter - Matthew Chavez Shadia RN - 05/22/2019 6:15 PM CDT Images from the original note were not included. SITUATION - cough, sore throat, post nasal drip BACKGROUND- Seen ED two days ago for current symptoms and diarrhea. States she was tested for influenza and that was negative. Seen by OB provider today due to vaginal bleeding. Those symptoms are the same as when seen. No increased abdominal pain or bleeding. States she was diagnosed with asthma one month ago. EGA (estimated gestational age): 5 weeks OB provider: Dr Sheldon Delgado Last visit: Seen this AM, has been spotting and cramping Complications - History of miscarriage at 5 months. Pertinent Medical History: Lupus, asthma ASSESSMENT < 20 weeks: Has a sore throat, body aches, cough and post nasal drip. Cough is productive but she does not know what color. Nasal drip makes it hard to swallow. Has some shortness of breath.No severe difficulty breathing. States she is not short of breath at rest. Body aches are worse. Used her albuterol in haler 20 minutes ago- helps a little bit but not really. States she uses her albuterol inhaler twice a day and has not had to use it more than that to be comfortable. Temperature : 99.2 as read now. Abdominal pain or contractions: abdominal pain , comes and goes, not present now. Vaginal bleeding: spotting , not worse since being seen by OB today. Leakage of fluid: denies Travel Screening Question Response Do you have any of the following symptoms? Cough;Diarrhea;Shortness of breath;Muscle pain;Joint pain;Weakness;Fever (fever 2 days ago) In the last month, have you been in contact with someone who was confirmed or suspected to have Coronavirus / COVID-19? No / Unsure Have you traveled internationally in the last month? No Travel History Travel since 04/23/19 No documented travel since 04/23/19 Patients whose symptoms require immediate emergency assistance should be directed to contact 911 for emergency assistance. If triage nurse is calling 911, notify them of the positive screening. Screening Positive/Negative? NEGATIVE Provide Instructions: Done? ?? Provide pertinent COVID education not-applicable ?? If asymptomatic, instruct to call back should symptoms present not-applicable ?? Refer to CDC website as appropriate not-applicable ?? Direct patient to primary care for follow up on reported symptoms as appropriate yes MATTHEW CHAVEZ RN RECOMMENDATION: Will call PCP tomorrow when open. If vaginal bleeding or abdominal pain is worse, she is to call OB tonight. Call back at any time if worse. Patient agrees. See care advice and disposition for guideline. First positive answer recorded; all responses to prior questions were negative. If symptoms increase, change, or if new symptoms develop, call your PCP or call back. Recommendation based on caller information and is not a diagnosis. Verified and reviewed all triage information with caller. Caller verbalized understanding of information given and denies further questions. Reason for Disposition ??? [1] MILD asthma attack (e.g., no SOB at rest, mild SOB with walking, speaks normally in sentences, mild wheezing) AND [2] persists > 24 hours on appropriate treatment Protocols used: ASTHMA ATTACK-A-AH documented in this encounter Plan of Treatment Not on file documented as of this encounter Visit Diagnoses Not on filedocumented in this encounter Additional Health Concerns Assessment Noted Time PHQ-9 Depression Total Score: 0 03/25/19 10:00 AM PRESS TOOL MAKER documented as of this encounter Care Teams Logistics Manager Relationship Specialty Start Date End Date Gayla Barker, SPRINKLER INSTALLER, REVENUE STAMP CUTTER [address] [place] [address] PCP - General Advanced Practice Nurse 03/25/19 documented as of this encounter
--- OUTSIDE RECORDS SUMMARY | 2024-02-24 19:48 | XMS_ITS | Encounter Summary ---
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
--- OUTSIDE RECORDS SUMMARY | 2024-02-24 19:48 | XMS_ITS | Encounter Summary ---
Author Organization [facility] Address [address] 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 * Telephone Encounter - Leti Gusman RN - 05/09/2019 8:43 AM CDT Attempted to call patient with message, no answer at this time. Left message to call back. * Telephone Encounter - Gayla Barker APN, CNP - 05/09/2019 7:54 AM CDT There are no known local cases that I am aware of. I would try to stay out of large groups of people. Good hand washing. And stay on the medication. * Telephone Encounter - Kristie Yee RN - 05/08/2019 3:35 PM CDT Patient calling and states she is currently taking hydroxychloroquine. Patient states this is an immunosuppressant and wanting to know with coronavirus going around if she should still be taking it. Please advise. documented in this encounter Plan of Treatment Not on file documented as of this encounter Visit Diagnoses Not on filedocumented in this encounter Additional Health Concerns Assessment Noted Time PHQ-9 Depression Total Score: 0 03/25/19 20 10:00 AM PLANT ACCOUNTANT documented as of this encounter Care Teams Parish Worker Relationship Specialty Start Date End Date Gayla Barker, ANNIE, CRATE LINER [address] [place] [address] PCP - General Advanced Practice Nurse 03/25/19 documented as of this encounter
--- OUTSIDE RECORDS SUMMARY | 2024-02-24 19:48 | XMS_ITS | Encounter Summary ---
Author Organization [employer] Care Team Providers Care Paper Counter Name Role Phone Gayla Barker APRN, HARSHA Primary Care Provider Encounter Details Date Type Department Care Team (Latest Contact Info) Description 07/04/2019 Travel Social History Tobacco Use Types Packs/Day [...] on file Legal Sex Female 10:27 AM SANITATION OFFICER Gender Identity Not on file Sexual Orientation Not on file COVID-19 Exposure Response Date Recorded In the last month, have you been in contact with someone who was confirmed or suspected to have Coronavirus / COVID-19? No / Unsure 07/04/2019 4:44 PM CDT documented as of this encounter Plan of Treatment Not on file documented as of this encounter Visit Diagnoses Not on filedocumented in this encounter Additional Health Concerns Assessment Noted Time PHQ-9 Depression Total Score: 0 03/25/19 20 10:00 AM SANITATION OFFICER documented as of this encounter Care Teams Paper Counter Relationship Specialty Start Date End Date Gayla Barker APRN, WARP CLAMPER [address] [place] [address] PCP - General Advanced Practice Nurse 03/25/19 documented as of this encounter
--- OUTSIDE RECORDS SUMMARY | 2024-02-24 19:48 | XMS_ITS | Encounter Summary ---
Author Organization [facility] Address [address] [facility] [place] [address] Phone Care Team Providers Care Payroll Clerk Name Role Phone Gayla Barker APRN, REIMBURSEMENT AUDITOR Primary Care Provider Reason for Visit * Reason Comments Patient Outreach CM - Provider Referr al Encounter Details Date Type Department Care Team ([facility] st Contact Info) Description 04/29/2019 Care Management [facility] Environmental Services Aide Management [address] [place], [place] [address] Shi Spicer LPN [place] Patient Outreach (CM - Provider Referral ) Social History Tobacco Use Types Packs/Day [...] on file Legal Sex Female 10:27 AM MISSILE MECHANIC Gender Identity Not on file Sexual Orientation Not on file documented as of this encounter Progress Notes * Shi Spicer LPN - 04/29/2019 10:02 AM CST Patient referred to care management for Carito is being referred for no insurance. Outreach to patient to discuss and offer Care Management Services. Left message for patient to Mary at [phone]. ILE MECHANIC * Shi Spicer LPN - 04/29/2019 10:02 AM CST Attempting to contact patient in order to discuss and offer CM services. Left message for patient to call Shi at [phone]. Letter sent via [employer]t and mail. Will defer referral x1 month. ILE MECHANIC documented in this encounter Plan of Treatment Not on file documented as of this encounter Procedures Procedure Name Priority Date/Time Associated Diagnosis Comments PATIENT CARE MGMT EVAL REFERRAL Routine 04/30/2019 1:00 PM MISSILE MECHANIC Insurance coverage problems documented in this encounter Results * PATIENT CARE MGMT EVAL REFERRAL (04/30/2019 1:00 PM MISSILE MECHANIC) us Gayla Barker APRN, CNP OUTPT REFERRALS EXT/INT Final Result documented in this encounter Visit Diagnoses Diagnosis Insurance coverage problems documented in this encounter Additional Health Concerns Assessment Noted Time PHQ-9 Depression Total Score: 0 03/25/19 10:00 AM MISSILE MECHANIC documented as of this encounter Care Teams Payroll Clerk Relationship Specialty Start Date End Date Gayla Barker APRN, CNP [address] [place] [address] PCP - General Advanced Practice Nurse 03/25/19 documented as of this encounter
--- OUTSIDE RECORDS SUMMARY | 2024-02-24 19:48 | XMS_ITS | Encounter Summary ---
Author Organization [facility] Address [address] [place] [address] Phone Care Team Providers Care Lift Team Technician Name Role Phone Gayla Barker APRN, FLOWER SHOP LABORER/DESIGNER Primary Care Provider Reason for Visit * Reason Onset Date Comments Results 05/14/2019 Encounter Details Date Type Department Care Team (Late st Contact Info) Description 05/14/2019 Telephone [facility] [address] [place] [address] Gayla Barker, ANNIE, FLOWER SHOP LABORER/DESIGNER [address] [place] [address] Results Social History Tobacco Use [...] on file Legal Sex Female 10:27 AM WATCH CASER Gender Identity Not on file Sexual Orientation Not on file COVID-19 Exposure Response Date Recorded In the last month, have you been in contact with someone who was confirmed or suspected to have Coronavirus / COVID-19? No / Unsure 05/14/2019 1:06 PM CDT documented as of this encounter Miscellaneous Notes * Telephone Encounter - Leti Doan RN - 05/14/2019 2:22 PM CDT Patient is aware and verbalizes understanding. ] * Telephone Encounter - Leti Doan RN - 05/14/2019 2:21 PM CDT Result Notes for HCG BETA SUBUNIT SERUM QUANT Notes recorded by Gayla Braker APN, FLOWER SHOP LABORER/DESIGNER on 05/14/2019 at 1:53 PM CDT Beta hCG is elevated at 42.08 which puts you at less than 4 weeks. ??Need to stop the Xanax, meloxicam, and omeprazole. ??Prednisone is questionably safe in 1st trimester. ??Contact your highway maintenance technician. documented in this encounter Plan of Treatment Not on file documented as of this encounter Visit Diagnoses Not on filedocumented in this encounter Additional Health Concerns Assessment Noted Time PHQ-9 Depression Total Score: 0 03/25/19 20 10:00 AM WATCH CASER documented as of this encounter Care Teams Lift Team Technician Relationship Specialty Start Date End Date Gayla Barker, ELECTRON BEAM WELDING MACHINE OPERATOR, FLOWER SHOP LABORER/DESIGNER [address] [place] [address] PCP - General Advanced Practice Nurse 03/25/19 documented as of this encounter
--- OUTSIDE RECORDS SUMMARY | 2024-02-24 19:48 | XMS_ITS | Encounter Summary ---
Author Organization [facility] Address [address] [facility] [place] [address] Phone Care Team Providers Care Occupational Therapist Assistant Name Role Phone Gayla Barker APRN, SPAR MACHINE OPERATOR Primary Care Provider Reason for Visit * Reason Onset Date Comments Other 05/18/2019 covid 19 Encounter Details Date Type Department Care Team ([facility] st Contact Info) Description 05/18/2019 Telephone [facility] [address] [place] [address] Gayla Barker, ANNIE, SPAR MACHINE OPERATOR [address] [place] [address] Other (covid 19) Social History Tobacco Use Types Packs/Day Years [...] on file Legal Sex Female 10:27 AM GAS PLANT SPECIALIST Gender Identity Not on file Sexual Orientation Not on file COVID-19 Exposure Response Date Recorded In the last month, have you been in contact with someone who was confirmed or suspected to have Coronavirus / COVID-19? No / Unsure 05/18/2019 9:49 AM CDT documented as of this encounter Miscellaneous Notes * Telephone Encounter - Dayna Brown - 05/18/2019 9:52 AM CDT SITUATION: Patient with cough and shortness of breath BACKGROUND: Screened negative for Covid. Medical history of Lupus. ASSESSMENT: Symptom Description / Location: symptoms started 4 days ago. Patient is coughing and has some shortness of breath. Patient is speaking in full sentences. Patient reports feeling too weak to even getout of bed . Cough is a dry, hacking cough. Denies fever at this time. Patient takes prednisone daily along with hydroxychloroquine. Reports that her whole body aches really bad at this time. Pain (0-10): 9/10 Temp: denies fever Treatment / Response: tylenol. Not really helping. LMP / / : Is currently . Is about 5 weeks at this time per patient. RECOMMENDATION: See care advice and disposition for Guideline First positive answer recorded, all responses to prior questions were negative. If symptoms increase, change or if new symptoms develop, call your HCP or call back. Recommendations were based on caller information and is not a diagnosis. Verified and reviewed all triage information with caller. Patient will contact OB. Will self quarantine. Routed to [place] for any additional recommendations. * Telephone Encounter - Chava Gordon RN - 05/18/2019 9:48 AM CDT Images from the original note were not included. Travel Screening Question Response Do you have any of the following symptoms? Cough;Shortness of breath In the last month, have you been in contact with someone who was confirmed or suspected to have Coronavirus / COVID-19? No / Unsure Have you traveled internationally in the last month? No Travel History Travel since 04/19/19 No documented travel since 04/19/19 Patients whose symptoms require immediate emergency assistance should be directed to contact 911 for emergency assistance. If triage nurse is calling 911, notify them of the positive screening. Screening Positive/Negative? NEGATIVE Provide Instructions: Done? ?? Provide pertinent COVID education yes ?? If asymptomatic, instruct to call back should symptoms present not-applicable ?? Refer to CDC website as appropriate yes ?? Direct patient to primary care for follow up on reported symptoms as appropriate yes Patient moved on to extended screener/covid nurse triage due to symptoms and pre-existing conditions. Patient states that she has lupus and is . CHAVA GORDON RN documented in this encounter Plan of Treatment Not on file documented as of this encounter Visit Diagnoses Not on filedocumented in this encounter Additional Health Concerns Assessment Noted Time PHQ-9 Depression Total Score: 0 03/25/19 10:00 AM GAS PLANT SPECIALIST documented as of this encounter Care Teams Occupational Therapist Assistant Relationship Specialty Start Date End Date Gayla Barker, BEAN SNIPPER, SPAR MACHINE OPERATOR [address] [place] [address] PCP - General Advanced Practice Nurse 03/25/19 documented as of this encounter
--- OUTSIDE RECORDS SUMMARY | 2024-02-24 19:48 | XMS_ITS | Encounter Summary ---
Author Organization [employer] Care Team Providers Care Boat Puller Name Role Phone Gayla Barker APRN, HARSHA Primary Care Provider Encounter Details Date Type Department Care Team (Latest Contact Info) Description 06/25/2019 Travel Social History Tobacco Use Types Packs/Day [...] on file Legal Sex Female 10:27 AM ASSET PROTECTION GREETER Gender Identity Not on file Sexual Orientation Not on file COVID-19 Exposure Response Date Recorded In the last month, have you been in contact with someone who was confirmed or suspected to have Coronavirus / COVID-19? No / Unsure 06/25/2019 8:49 AM CDT documented as of this encounter Plan of Treatment Not on file documented as of this encounter Visit Diagnoses Not on filedocumented in this encounter Additional Health Concerns Assessment Noted Time PHQ-9 Depression Total Score: 0 03/25/19 20 10:00 AM ASSET PROTECTION GREETER documented as of this encounter Care Teams Boat Puller Relationship Specialty Start Date End Date Gayla Barker APRN, BACK FACER [address] [place] [address] PCP - General Advanced Practice Nurse 03/25/19 documented as of this encounter
--- OUTSIDE RECORDS SUMMARY | 2024-02-24 19:48 | XMS_ITS | Encounter Summary ---
Author Organization [facility] Address [address] [place] [address] Phone Care Team Providers Care Extrusion Press Adjuster Name Role Phone Gayla Barker APRN, HARSHA Primary Care Provider Reason for Visit * Reason Onset Date Comments Results 05/27/2019 Encounter Details Date Type Department Care Team (Late st Contact Info) Description 05/27/2019 Telephone [facility] [address] [place] [address] Gayla Barker APRN, HEAD BOYS TENNIS COACH [address] [place] [address] Results Social History Tobacco Use [...] file Legal Sex Female 10:27 AM EDUCATIONAL ASSISTANT Gender Identity Not on file Sexual Orientation Not on file COVID-19 Exposure Response Date Recorded In the last month, have you been in contact with someone who was confirmed or suspected to have Coronavirus / COVID-19? No / Unsure 05/31/2019 9:37 AM CDT documented as of this encounter Miscellaneous Notes * Telephone Encounter - Ruma Max RMA - 05/27/2019 6:12 PM CDT Patient called requesting HCG result. documented in this encounter Plan of Treatment Not on file documented as of this encounter Visit Diagnoses Not on filedocumented in this encounter Additional Health Concerns Assessment Noted Time PHQ-9 Depression Total Score: 0 03/25/19 10:00 AM EDUCATIONAL ASSISTANT documented as of this encounter Care Teams Extrusion Press Adjuster Relationship Specialty Start Date End Date Gayla Barker, FINISHING MACHINE TENDER, HEAD BOYS TENNIS COACH [address] [place] [address] PCP - General Advanced Practice Nurse 03/25/19 documented as of this encounter
--- OUTSIDE RECORDS SUMMARY | 2024-02-24 19:48 | XMS_ITS | Encounter Summary ---
Author Organization [facility] Address [address] [place] [address] Phone Care Team Providers Care Data Base Administrator Name Role Phone Gayla Barker APRN, WORKFORCE SERVICES REPRESENTATIVE Primary Care Provider Reason for Visit * Reason Onset Date Comments Diarrhea 05/19/2019 seen in ED today for cough Generalized Body Aches 05/19/2019 thinks it is a lupus flare- wants medication Encounter Details Date Type Department Care Team (Late st Contact Info) Description 05/19/2019 Nurse Triage [facility] Call Center [address] [place] [address] Gayla Barker, ANNIE, WORKFORCE SERVICES REPRESENTATIVE [address] [place] [address] Diarrhea (seen in ED today for cough ); Generalized Body Aches (thinks it is a lupus flare- wants medication ) Social History Tobacco Use Types Packs/Day [...] on file Legal Sex Female 10:27 AM 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 No / Unsure 05/19/2019 9:55 AM CDT documented as of this encounter Miscellaneous Notes * Telephone Encounter - Dimple Youssef RN - 05/19/2019 6:38 PM CDT Reason for Disposition ??? Caller requesting a NON-URGENT new prescription or refill and triager unable to refill per [facility] Protocols used: MEDICATION QUESTION CALL-A-AH * Telephone Encounter - Dimple Youssef RN - 05/19/2019 5:30 PM CDT Images from the original note were not included. SITUATION (caller perception/concerns): Lupus pain -patient calling BACKGROUND (events leading up to call): States she is 5 weeks - has had a cough productivewith blood streaking in the mucus once this AM -this morning with some shortness of breath -diarrhea - was seen in ED today and had a chest x-ray - currently on hydroxychloroquine and prednisone for her Lupus-feels like she is a Lupus flare up -wonders if there is anything else she can take Sees a specialist (provider name, reason): na If so, last visit: na History (chance of ): Lupus ASSESSMENT: Onset: na Symptoms: hurts all over cough is occasional and productive with yellow mucus,no blood noted - nowheezing-denies feeling short of breath at this time - denies chest pain -has had 6 loose stools today last was 10 minutes ago - taking fluids and retaining no vomiting Pain: states her whole body aches Present now: yes Length of time present: Last 3 days Constant or intermittent: Constant but worse at night Description of pain: achey Level of pain: 9/10 Ability to perform daily activities: Up and about -able to continue normal actiivities Temp (route, time): Denies fever Other Symptoms: Denies Treatment with response: Warm tub baths help RECOMMENDATION: Caller requested POC be paged to see if there is anything else she can take for herLupus pain RN spoke with Dr. Anil Hamilton -telephone order received to increase prednisone to 40 mg daily for 2 daysthen decrease by 5 mg every 2 days until back at her usual 15 mg daily - to call and follow up withJomar Barker tomorrow -PK RN attempted to call patient back reached voicemail and left Message to call back - placed in call back RN called patient back and advised of the above - she verbalized understanding and agreed and will call back for further concerns Travel Screening Question Response Do you have any of the following symptoms? Shortness of breath;Cough In the last month, have you been in contact with someone who was confirmed or suspected to have Coronavirus / COVID-19? No / Unsure Have you traveled internationally in the last month? No Travel History Travel since 04/20/19 No documented travel since 04/20/19 Patients whose symptoms require immediate emergency assistance [...] up on reported symptoms as appropriate yes Dimple Youssef RN See care advice and disposition for guideline. First positive answer recorded, all responses to [...] Total Score: 0 03/25/19 20 10:00 AM HVAC DESIGN MECHANICAL ENGINEER documented as of this encounter Care Teams Data Base Administrator Relationship Specialty Start Date End Date Gayla Barker, CONCRETE VAULT MAKER, WORKFORCE SERVICES REPRESENTATIVE [address] [place] [address] PCP - General Advanced Practice Nurse 03/25/19 documented as of this encounter
--- OUTSIDE RECORDS SUMMARY | 2024-02-24 19:48 | XMS_ITS | Encounter Summary ---
Author Organization [facility] Address [address] [place] [address] Phone Care Team Providers Care Pigeon Fancier Name Role Phone Daryl Jansen APRN, HEAVY MOBILE EQUIPMENT REPAIRER Primary Care Provider Reason for Visit * Reason Onset Date Comments Other 07/06/2019 Encounter Details Date Type Department Care Team (Late st Contact Info) Description 07/06/2019 Nurse Triage [facility] Call Center 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 No / Unsure 07/04/2019 4:44 PM CDT documented as of this encounter Miscellaneous Notes * Addendum Note - Kristie Yee RN - 07/07/2019 9:29 AM CDTAddended by: KRISTIE YEE on: 07/07/2019 09:29 AM Modules accepted: Orders * Telephone Encounter - Kristie Yee RN - 07/07/2019 9:29 AM CDT Imaging canceled. * Telephone Encounter - Daryl Jansen APN, CNP - 07/07/2019 8:38 AM CDT Cancel ultrasound. * Telephone Encounter - Kristie Yee RN - 07/07/2019 8:26 AM CDT Genevieve, Centralized scheduling calling and states she spoke with patient who advised she was seen in the ED yesterday and was told that it was most likely not a blood clot. Patient does not feel it is neccessary for more imaging. Please advise. * Telephone Encounter - Leti Gusman RN - 07/07/2019 8:17 AM CDT Ultrasound does not require PA. Scheduling phoned at [facility]. They will contact patient directly to schedule appointment. * Addendum Note - Daryl Jansen APN, CNP - 07/07/2019 7:52 AM CDTAddended by: DARYL JANSEN on: 07/07/2019 07:52 AM Modules accepted: Orders * Telephone Encounter - Violetta Guy RN - 07/06/2019 4:36 PM CDT Caller wants her PCP contacted now, has issues and concerns with care received in ED this morning and 2 days ago in ED as well, they are not doing any testing she feels they should be doing and wantsPCP to order testing for her. She states she was told at her last office visit 2 days ago by her PCP that she could have a blood clot or PE and to call if her swollen hand/wrist got worse, patient went to ED and they are not doing anything and won't do a CT to check for a clot. Patient scared and concerned. Had been having shortness of breath and cough and went to ED this morning and sent home. Reached out to POC, Dr Stephanie Rodríguez and left voicemail to either call patient or call us back here at the [facility]. Patient informed message was left and to call PCP tomorrow during office hours as well. Also advised caller to call us back if would like to talk about her symptoms. Advised to goback to the ED if any severe shortness of breath or chest pain develop.Caller verbalized understanding. documented in this encounter Plan of Treatment Not on file documented as of this encounter Visit Diagnoses Diagnosis Localized swelling on right hand- Primary documented in this encounter Additional Health Concerns Assessment Noted Time PHQ-9 Depression Total Score: 0 03/25/19 10:00 AM FURNITURE TECHNICIAN documented as of this encounter Care Teams Pigeon Fancier Relationship Specialty Start Date End Date Daryl Jansen, HUMAN RESOURCES INTERN, HEAVY MOBILE EQUIPMENT REPAIRER [address] [place] [address] PCP - General Advanced Practice Nurse 03/25/19 documented as of this encounter
--- OUTSIDE RECORDS SUMMARY | 2024-02-24 19:48 | XMS_ITS | Encounter Summary ---
Author Organization [facility] [employer] Care Team Providers Care Clockmaker Apprentice Name Role Phone Gayla Barker APRN, HARSHA Primary Care Provider Encounter Details Date Type Department Care Team (Latest Contact Info) Description 05/27/2019 Travel Social History Tobacco Use Types Packs/Day [...] on file Legal Sex Female 10:27 AM BROOM BUNDLER Gender Identity Not on file Sexual Orientation [...] Total Score: 0 03/25/19 20 10:00 AM BROOM BUNDLER documented as of this encounter Care Teams Clockmaker Apprentice Relationship Specialty Start Date End Date Gayla Barker APRN, ASSOCIATE EDITOR [address] [place] [address] PCP - General Advanced Practice Nurse 03/25/19 documented as of this encounter
--- OUTSIDE RECORDS SUMMARY | 2024-02-24 19:48 | XMS_ITS | Encounter Summary ---
Author Organization [facility] Address [address] [place] [address] Phone Care Team Providers Care Support Analyst Name Role Phone Gayla Barker APRN, CNP Primary Care Provider Reason for Visit * Reason Comments Diarrhea onset 11 days Rib Pain under breast Encounter Details Date Type Department Care Team (Late st Contact Info) Description 05/27/2019 10:30 AM CDT Office Visit [facility] [address] [place] [phone] Gayla Barker APRN, BOTTOM HOOP DRIVER [address] [place] [address] Diarrhea, unspecified type (Primary Dx); Threatened miscarriage; Rib pain Discharge Disposition: Discharged to home or [...] on file Legal Sex Female 10:27 AM RN 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 No / Unsure 05/27/2019 10:19 AM CDT documented as of this encounter Last Filed Vital Signs Vital Sign Reading Time Taken Comments Blood Pressure 108/78 05/27/2019 10:21 AM CDT Pulse 97 05/27/2019 10:21 AM CDT Temperature 36.7 ??C (98 ??F) 05/27/2019 10: 21 AM CDT Respiratory Rate 20 05/27/2019 10:2 1 AM CDT Oxygen Saturation 98% 05/27/2019 10: 21 AM CDT Inhaled Oxygen Concentration - - Weight 72.9 kg (160 lb 12.8 oz) 020 10:21 AM CDT Height 160 cm (5' 3 ) 05/27/2019 10:21 AM CDT Body Mass Index 28.48 05/27/2019 10:21 AM CDT documented in this encounter Patient Instructions * Patient Instructions* Gayla Barker APN, CNP - 05/27/2019 10:30 AM CDT Chest xray today Labs today High fiber diet Benefiber in water. Follow up as needed documented in this encounter Progress Notes * Rima Junior - 05/27/2019 10:30 AM CDT Carito Rausch, 29 y.o., female is here for Diarrhea (onset 11 days) and Rib Pain (under breast) Medication Refills: Patient reports/denies need for medication refills. Orders Pended: no Requested Prescriptions No prescriptions requested or ordered in this encounter Home Medications Medication Sig Start Date End Date Taking? Authorizing Provider albuterol 108 (90 Base) MCG/ACT Aerosol Solution take 2 Puffs by inhalation every 4 hours as neededfor Cough (shortness of breath). 05/23/19 Yes Faizan Loco, CARIDAD ALPRAZolam (XANAX) 0.25 MG Tablet Take 1 Tab by mouth 3 times daily as needed for Anxiety. 05/09/19 Yes Gayla Barker APN, CNP clomiPHENE (CLOMID) 50 MG Tablet Take 50 mg by mouth. 03/31/19 Isis Sheffield MD folic acid (FOLVITE) 1 MG Tablet Take 1 mg by mouth. 04/01/19 Yes Isis Sheffield MD guaiFENesin (ROBITUSSIN) 100 MG/5ML Solution Take 10 mL by mouth every 6 hours as needed for Cough.05/23/19 Yes Faizan Loco PAC hydroxychloroquine (PLAQUENIL) 200 MG Tablet Take 1 Tab by mouth daily. 05/09/19 Yes Gayla Barker APN, CNP levETIRAcetam (KEPPRA) 500 MG Tablet Take 1 Tab by mouth 2 times daily. Patient not taking: Reported on 04/28/2019 04/07/19 Alton Valerio MD meloxicam (MOBIC) 15 MG Tablet Take 1 Tab by mouth daily. Patient not taking: Reported on 05/27/2019 04/01/19 Gayla Barker APN, CNP metroNIDAZOLE (METROGEL VAGINAL) 0.75 % Gel 1 Applicatorful by Vaginal route nightly. 05/16/19 Faizan Loco PAC omeprazole (PRILOSEC) 20 MG CAPSULE DELAYED RELEASE TK 1 C PO QD 03/06/19 ProviderIsis MD predniSONE (DELTASONE) 10 MG Tablet Take 1 Tab by mouth daily. 05/09/19 Yes Gayla Barker APN, CNP predniSONE (DELTASONE) 5 MG Tablet Take 1 Tab by mouth daily. 05/09/19 Yes Gayla Barker APN, CNP Vit-Fe Fumarate-FA ( VITAMINS PO) Take 1 Tab by mouth daily. Emergency, Nurse, RN silver sulfADIAZINE (SILVADENE) 1 % Cream Apply 2 times daily. Application Site: to finger 2x/day (Description and Location) 04/01/19 Gayla Barker APN, CNP There are no discontinued medications. I have [...] Topic Date Due ??? Influenza Immunization (1) 10/27/2018 ??? DTaP/Tdap/Td Immunization (2 - Td) 12/29/2018 Orders Pended: no The following BPA's have been addressed with the patient today: Flu/tdap * Gayla Barker, PENNY, BOTTOM HOOP DRIVER - 05/27/2019 10:30 AM CDT Subjective: Patient presents with complaints of diarrhea times 11 days and threatened miscarriage. She is also having rib pain. The rib pains been going on for about 2 days. Review of Systems Constitutional: Positive for appetite change. Negative for fever. HENT: Negative. Respiratory: Negative for cough and shortness of breath. Cardiovascular: Negative for chest pain and palpitations. Gastrointestinal: Positive for diarrhea. Negative for constipation, nausea and vomiting. Genitourinary: Negative. Musculoskeletal: Rib pain. Neurological: Negative for dizziness and headaches. [...] is soft. Musculoskeletal: Normal range of motion. General: Tenderness (ribs) present. Skin: General: Skin is warm and dry. Neurological: Mental Status: She is alert and oriented to person, place, and time. Psychiatric: Mood and Affect: Mood normal. BP 108/78 Pulse 97 Temp 98 ??F (36.7 ??C) (Temporal) Resp 20 Ht 5' 3 (1.6 m) Wt 160 lb 12.8 oz (72.9 kg) LMP 04/14/2019 SpO2 98% BMI 28.48 kg/m?? Assessment and Plan See Diagnoses, Orders, Follow-up, and Instructions Encounter Diagnoses Name Primary? Diarrhea, unspecified type Yes ??? Threatened miscarriage ??? Rib pain Chest xray today Labs today High fiber diet Benefiber in water. Follow up as needed Documentation for this visit on 05/27/2019 was completed using a template. I have seen and examinedthe patient. Everything documented was personally performed at this visit with the necessary additions, deletions and changes made as appropriate. documented in this encounter Plan of Treatment Not on file documented as of this encounter Results * (ABNORMAL) HCG BETA SUBUNIT SERUM QUANT (05/27/2019 11:13 AM CDT) HCG BETA SUBUNIT, QUANT 68.92(H) <=5.00 mIU/mL 05/27/2019 5:03 PM CDT [facility] Blood specimen (specimen) Venipuncture / Unknown 05/27/2019 11:13 AM CDT 05/27/2019 11:13 AM CDT Narrative [facility] - 05/27/2019 5:03 PM CDT HCG Interpretive Reference Ranges Wks of : References Ranges 4 wks [phone] wks [phone] 6 wks [id number] 7 wks [id number] 8 wks [id number] 9 wks [id number] 10 wks [id number] 14 wks [id number] 15 wks [id number] 16 wks [id number] 17 wks [id number] 18 wks [phone] 19 wks [id number] Non- Female: 0-4 us Gayla Barker APRN, CNP CHEMISTRY ORDERABLES Fi nal Result [facility] [address] [place] [address] documented in this encounter Visit Diagnoses Diagnosis Diarrhea, unspecified type- Primary Threatened miscarriage Threatened , unspecified as to episode of care Rib pain Chest pain, unspecified documented in this encounter Additional Health Concerns Assessment Noted Time PHQ-9 Depression Total Score: 0 03/25/19 20 10:00 AM RN MANAGER documented as of this encounter Care Teams Support Analyst Relationship Specialty Start Date End Date Gayla Barker, ANNIE, BOTTOM HOOP DRIVER [address] [place] [address] PCP - General Advanced Practice Nurse 03/25/19 documented as of this encounter
--- OUTSIDE RECORDS SUMMARY | 2024-02-24 19:48 | XMS_ITS | Encounter Summary ---
Author Organization [facility] Address [address] [facility] 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 No / Unsure 07/07/2019 11:58 AM CDT documented as of this encounter Last Filed Vital Signs Vital Sign Reading Time Taken Comments Blood Pressure 126/79 07/07/2019 2:10 PM CDT Pulse 80 07/07/2019 2:10 PM CDT Temperature 36.2 ??C (97.2 ??F) 07/07/2019 11:57 AM C DT Respiratory Rate 16 07/07/2019 11:57 AM CDT Oxygen Saturation 100% 07/07/2019 1:00 PM CDT Inhaled Oxygen Concentration - - Weight 72.6 kg (160 lb) 07/07/2019 11:57 AM CDT Height 160 cm (5' 3 ) 07/07/2019 11:57 AM CDT Body Mass Index 28.34 07/07/2019 11:57 AM CDT documented in this encounter Discharge Instructions * Attachments The following attachments cannot be sent through Care Everywhere. * Lupus (Systemic Lupus Erythematosus) (Iranian) documented in this encounter Medications at Time [...] daily as needed for Anxiety. 30 Tab 06/18/2019 0 ergocalciferol (VITAMIN D) 06888 UNIT Capsule TAKE 1 CAPSULE BY MOUTH ONE TIME PER WEEK 06/21/2019 0 ketorolac (TORADOL) 10 MG Tablet Take 10 mg by mouth every 4 hours as needed. 0 OMEPRAZOLE PO Take 20 mg by mouth. 1 predniSONE (DELTASONE) 10 MG Tablet Take 1 Tab by mouth daily. 90 Tab 3 05/09/2019 0 predniSONE (DELTASONE) 5 MG Tablet Take 1 Tab by mouth daily. 90 Tab 3 05/09/2019 0 documented as of this encounter ED Notes * Bon Shi RN - 07/07/2019 2:13 PM CDT Patient discharged. Discharge instructions and patient educational material reviewed with patient; questions and concerns addressed; patient verbalizes understanding, using teach back. Patient discharged per ambulatory mode with self as responsible alliance party. SL D/C'ed with Ruperto cath intact. * Bon Shi RN - 07/07/2019 2:00 PM CDT ERPA at bedside discussing POC * Bon Shi RN - 07/07/2019 1:08 PM CDT Pt to ultrasound * Bon Shi RN - 07/07/2019 12:56 PM CDT Pt medicated per provider orders. Pt educated on intended effects and side effects of medication and verbalized understanding, able to provide teach back of education. * Faizan Loco PAC - 07/07/2019 12:18 PM CDT Chief Complaint Patient presents with ??? Hand Swelling Carito Rausch is a 29 y.o. female who presents to the ED c/o bilateral upper and lower ext swelling present for 1 week. Patient has been seen by PCP, [facility], [facility] for same complaint prior to this visit. Patient has been having presumed Lupus flare and steroid related edema. She has been tried on several medications and is currently taking prednisone 20mg taper from 40mg along with toradol for generalized pain. A chart review shows toradol was discontinued yesterday by [place] ED for GI disturbance. She had an US scheduled today to R/O DVT of B/L upper ext as well as soft tissue exam of left upper chest to evaluate a suspected sebaceous cyst. She had these cancelled today due to work obligations and was told to come to the ED to have them completed when she was off work. No current facility-administered medications for this encounter. Current Outpatient Medications Medication Sig Dispense Refill ??? albuterol 108 (90 Base) MCG/ACT Aerosol Solution take 2 Puffs by inhalation every 4 hours as needed for Cough (shortness of breath). 8.5 g 0 ??? ALPRAZolam (XANAX) 0.25 MG Tablet Take 1 Tab by mouth 3 times daily as needed for Anxiety. 30 Tab 0 ??? hydroxychloroquine (PLAQUENIL) 200 MG Tablet Take 1 Tab by mouth daily. 90 Tab 3 ??? ketorolac (TORADOL) 10 MG Tablet Take 10 mg by mouth every 4 hours as needed. ??? OMEPRAZOLE PO Take by mouth. ??? predniSONE (DELTASONE) 10 MG Tablet Take 1 Tab by mouth daily. 90 Tab 3 ??? predniSONE (DELTASONE) 5 MG Tablet Take 1 Tab by mouth daily. 90 Tab 3 Allergies Allergen Reactions ??? Medrol [Methylprednisolone] Anaphylaxis [...] file Gets together: Not on file Attends methodist service: Not on file Active member of [...] History Narrative ??? Not on file BP 129/85 Pulse 103 Temp 97.2 ??F (36.2 ??C) (Tympanic) Resp 16 Ht 5' 3 (1.6 m) Wt 160 lb (72.6 kg) LMP 06/19/2019 (Approximate) SpO2 100% BMI 28.34 kg/m?? Review of Systems Constitutional: Negative for chills, fatigue and fever. HENT: Negative for congestion, ear pain and sore throat. Respiratory: Negative for cough, chest tightness, shortness of breath and wheezing. Cardiovascular: Positive for leg swelling. Negative for chest pain and palpitations. Gastrointestinal: Positive for nausea. Negative for abdominal pain, constipation, diarrhea and vomiting. Genitourinary: Negative for dysuria, frequency and urgency. Musculoskeletal: Positive for arthralgias and back pain. Skin: Negative for color change and wound. Neurological: Negative for dizziness and light-headedness. Physical Exam Vitals signs and nursing note reviewed. Constitutional: General: She is not in acute distress. Appearance: She is well-developed. She is not diaphoretic. HENT: Head: Normocephalic and atraumatic. Eyes: Pupils: [...] Normal range of motion. General: No tenderness. Right lower leg: Edema (1+) present. Left lower leg: Edema (1+) present. Skin: General: Skin is warm and dry. Coloration: Skin is not pale. Findings: No erythema or rash. Neurological: Mental Status: She is alert and oriented to person, place, and time. Cranial Nerves: No cranial nerve deficit. Psychiatric: Behavior: Behavior normal. US BILATERAL DUPLEX UPPER EXTREMITY VEINS Final Result IMPRESSION: No sonographic evidence of DVT in the upper extremity bilaterally. US CHEST INCLUDES MEDIASTINUM Final Result IMPRESSION: No soft tissue mass, fluid collection, or foreign body. C-Reactive Protein Qnt (Crp) Final Result Complete Blood Count (CBC) WITH Diff Final Result CMP (Comprehensive Metabolic Panel) Final Result Extra Tubes (Results Pending) Procedures Imaging Results US BILATERAL DUPLEX UPPER EXTREMITY VEINS (Final result) Result time 07/07/19 13:36:46 Final result by Moose Williamson MD (07/07/19 13:36:46) Impression: IMPRESSION: No sonographic evidence of DVT in the upper extremity bilaterally. Narrative: EXAM DESCRIPTION: US BILATERAL DUPLEX UPPER EXTREMITY VEINS HISTORY: bilateral hand swelling, for 1 week TECHNIQUE: Axial and longitudinal grayscale and color and pulsed wave Doppler imaging of the upper extremity bilaterally was performed utilizing real-time ultrasonography. COMPARISON: None FINDINGS: The deep venous system of the upper extremity bilaterally from the jugular vein through the antecubital fossa demonstrates normal color Doppler flow and wave forms, normal compressibility where applicable, and normal augmentation. No abnormal fluid collections or masses are identified within the soft tissues. THIS IS AN ELECTRONICALLY VERIFIED FINAL REPORT 07/07/2019 1:34 PM - Electronically signed by Roberth Williamson M.D. MARIAA: MARIAA Report ID: [id number] Reading Location: [id number] US CHEST INCLUDES MEDIASTINUM (Final result) Result time 07/07/19 13:35:48 Procedure changed from US SOFT TISSUE UNLISTED PROCEDURE Final result by Moose Williamson MD (07/07/19 13:35:48) Impression: IMPRESSION: No soft tissue mass, fluid collection, or foreign body. Narrative: EXAM DESCRIPTION: US CHEST INCLUDES MEDIASTINUM REASON FOR STUDY: enlarged lymph node/cyst left upper chest wall TECHNIQUE: A Dynamic assessment was performed of the left chest wall by the consulting services associate, with selected grayscale and color Doppler images acquired and recorded in PACS. COMPARISON: None FINDINGS: SKIN AND SUBCUTANEOUS TISSUES: No masses. No fluid collections. No edema. No foreign bodies. DEEP SOFT TISSUES/MUSCLES: No masses. No fluid collections. No edema. OTHER: No other significant finding. THIS IS AN ELECTRONICALLY VERIFIED FINAL REPORT 07/07/2019 1:32 PM - Electronically signed by Roberth Williamson M.D. MARIAA: MARIAA Report ID: [id number] Reading Location: [place] [address] US SOFT TISSUE UNLISTED PROCEDURE (Canceled) MDM Coding Clinical Impression 1. Bilateral hand swelling Reviewed labs and imaging with patient. No DVT. Discussed likelihood that swelling related to chronic steroid use. She has 1mg tablets prednisone at home and will start a weekly 1mg taper with assistance from Lupus clinic she will follow up with tomorrow for further instructions. Return to ED for worsening sxs. The [...] the need for follow up. Cosigned by Danny Woo at 07/07/2019 2:28 PM CDT * Lisy Cancino RN - 07/07/2019 12:00 PM CDT Patient presents to ED triage with complaint bilateral hand swelling. Patient states that she was suppose to have a ultrasound but canceled. Patient states that she is concerned that she may have blood clot. Patient complaining of bilateral hand and leg pain. No distress noted. documented in this encounter Plan of Treatment Not on file documented as of this encounter Procedures Procedure Name Priority Date/Time Associated Diagnosis Comments US BILATERAL DUPLEX UPPER EXTREMITY VEINS STAT 07/07/2019 1:30 PM CDT US CHEST INCLUDES MEDIASTINUM STAT 07/07/2019 1:28 PM CDT EXTRA TUBES STAT 07/07/2019 12:31 PM CDT GOLD TOP TUBE STAT 07/07/2019 12:31 PM CDT BLUE TOP TUBE STAT 07/07/2019 12:31 PM CDT CBC WITH AUTO DIFFERENTIAL STAT 07/07/2019 12:31 PM CDT CMP (COMPREHENSIVE METABOLIC PANEL) STAT 07/07/2019 12:31 PM CDT COMPLETE BLOOD COUNT (CBC) WITH DIFF STAT 07/07/2019 12:31 PM CDT C-REACTIVE PROTEIN (CRP) QUANT STAT 07/07/2019 12:31 PM CDT documented in this encounter Results * US BILATERAL DUPLEX UPPER EXTREMITY VEINS (07/07/2019 1:30 PM CDT) Anatomical Region Laterality Modality vascular Bilateral Ultrasound 07/07/2019 1:34 PM CDT Impressions 07/07/2019 1:36 PM CDT IMPRESSION: ??No sonographic evidence of DVT in the upper extremity bilaterally. Narrative 07/07/2019 1:36 PM CDT EXAM DESCRIPTION: ??US BILATERAL DUPLEX UPPER EXTREMITY VEINS HISTORY: ??bilateral hand swelling, for 1 week TECHNIQUE: ??Axial and longitudinal grayscale and color and pulsed wave Doppler imaging of the upper extremity bilaterally was performed utilizing real-time ultrasonography. COMPARISON: ??None FINDINGS: ??The deep venous system of the upper extremity bilaterally from the jugular vein through the antecubital fossa demonstrates normal color Doppler flow and wave forms, normal compressibility where applicable, and normal augmentation. No abnormal fluid collections or masses are identified within the soft tissues. THIS IS AN ELECTRONICALLY VERIFIED FINAL REPORT 07/07/2019 1:34 PM - Electronically signed by Roberth LEROY: MARIAA D: ??07/07/2019 1:34 PM T: ??07/07/2019 1:34 PM Report ID: [id number] Reading Location: ??[id number] Procedure Note Moose Williamson MD - 07/07/2019 EXAM DESCRIPTION: US BILATERAL DUPLEX UPPER EXTREMITY VEINS HISTORY: bilateral hand swelling, for 1 week TECHNIQUE: Axial and longitudinal grayscale and color and pulsed wave Doppler imaging of the upper extremity bilaterally was performed utilizing real-time ultrasonography. COMPARISON: None FINDINGS: The deep venous system of the upper extremity bilaterally from the jugular vein through the antecubital fossa demonstrates normal color Doppler flow and wave forms, normal compressibility where applicable, and normal augmentation. No abnormal fluid collections or masses are identified within the soft tissues. THIS IS AN ELECTRONICALLY VERIFIED FINAL REPORT 07/07/2019 1:34 PM - Electronically signed by Roberth Williamson M.D. MARIAA: MARIAA Report ID: [id number] Reading Location: [id number] IMPRESSION: No sonographic evidence of DVT in the upper extremity bilaterally. Faizan Loco PAC IM US ORDERABLES Fi nal Result * US CHEST INCLUDES MEDIASTINUM (07/07/2019 1:28 PM CDT) Anatomical Region Laterality Modality Chest N/A Ultrasound 07/07/2019 1:32 PM CDT Impressions 07/07/2019 1:35 PM CDT IMPRESSION: ??No soft tissue mass, fluid collection, or foreign body. Narrative 07/07/2019 1:35 PM CDT EXAM DESCRIPTION: ??US CHEST INCLUDES MEDIASTINUM REASON FOR STUDY: ??enlarged lymph node/cyst left upper chest wall TECHNIQUE: ??A Dynamic assessment was performed of the left chest wall by the consulting services associate, with selected grayscale and color Doppler images acquired and recorded in PACS. COMPARISON: ??None FINDINGS: ??SKIN AND SUBCUTANEOUS TISSUES: No masses. No fluid collections. No edema. No foreign bodies. DEEP SOFT TISSUES/MUSCLES: No masses. No fluid collections. No edema. OTHER: No other significant finding. THIS IS AN ELECTRONICALLY VERIFIED FINAL REPORT 07/07/2019 1:32 PM - Electronically signed by Roberth LEROY: MARIAA D: ??07/07/2019 1:32 PM T: ??07/07/2019 1:32 PM Report ID: [id number] Reading Location: ??[id number] Procedure Note Moose Williamson MD - 07/07/2019 EXAM DESCRIPTION: US CHEST INCLUDES MEDIASTINUM REASON FOR STUDY: enlarged lymph node/cyst left upper chest wall TECHNIQUE: A Dynamic assessment was performed of the left chest wall by the consulting services associate, with selected grayscale and color Doppler images acquired and recorded in PACS. COMPARISON: None FINDINGS: SKIN AND SUBCUTANEOUS TISSUES: No masses. No fluid collections. No edema. No foreign bodies. DEEP SOFT TISSUES/MUSCLES: No masses. No fluid collections. No edema. OTHER: No other significant finding. THIS IS AN ELECTRONICALLY VERIFIED FINAL REPORT 07/07/2019 1:32 PM - Electronically signed by Roberth Williamson M.D. MARIAA: MARIAA Report ID: [id number] Reading Location: [id number] IMPRESSION: No soft tissue mass, fluid collection, or foreign body. Faizan Loco PAC IMG US ORDERABLES Fi nal Result * Gold Top Tube (07/07/2019 12:31 PM CDT) Blood specimen (specimen) Venous Catheter (IV) / Unknown 07/07/2019 12:31 PM CDT 07/07/2019 12:45 PM CDT Faizan Loco PAC CHEMISTRY ORDERABLES Final Result [facility] [address] [place] [address] * Blue Top Tube (07/07/2019 12:31 PM CDT) Blood specimen (specimen) Venous Catheter (IV) / Unknown 07/07/2019 12:31 PM CDT 07/07/2019 12:45 PM CDT us Faizan Loco PAC HEMATOLOGY ORDERABLE S Final Result [facility] [address] [place] [address] * (ABNORMAL) CBC with Auto Differential (07/07/2019 12:31 PM CDT) WBC 6.44 4.00 - 12.00 10(3)/mcL 07/07/2019 12:51 PM CDT [facility] RBC 4.02 3.80 - 5.30 10(6)/mcL 07/07/2019 12:51 PM CDT [facility] HEMOGLOBIN (HGB) 11.6(L) 12.0 - 15.8 g/dL 07/07/2019 12:51 PM CDT [facility] HEMATOCRIT (HCT) 36.9 36.0 - 47.0 % 07/07/2019 12:51 PM CDT [facility] MCV 91.8 82.0 - 96.0 fL 07/07/2019 12:51 PM CDT [facility] MCH 28.9 26.0 - 34.0 pg 07/07/2019 12:51 PM CDT [facility] MCHC 31.4 31.0 - 36.0 g/dL 07/07/2019 12:51 PM CDT [facility] PLATELET COUNT 288 140 - 440 10(3)/mcL 07/07/2019 12:51 PM CDT [facility] RDW 14.9 11.8 - 15.5 % 07/07/2019 12:51 PM CDT [facility] MPV 9.4(L) 9.7 - 12.4 fL 07/07/2019 12:51 PM CDT [facility] NEUTROPHILS 87.4(H) 47.0 - 73.0 % 07/07/2019 12:51 PM CDT [facility] LYMPHOCYTES 7.6(L) 18.0 - 42.0 % 07/07/2019 12:51 PM CDT [facility] MONOCYTES 4.5 4.0 - 12.0 % 07/07/2019 12:51 PM CDT [facility] EOSINOPHILS 0.3 0.0 - 5.0 % 07/07/2019 12:51 PM CDT [facility] BASOPHILS 0.2 0.0 - 1.0 % 07/07/2019 12:51 PM CDT [facility] ABSOLUTE NEUTROPHILS 5.63 1.60 - 7.70 10(3)/mcL 07/07/2019 12:51 PM CDT [facility] ABSOLUTE LYMPHOCYTES 0.49(L) 1.30 - 3.20 10(3)/mcL 07/07/2019 12:51 PM CDT [facility] ABSOLUTE MONOCYTES 0.29 0.20 - 1.00 10(3)/[facility] 07/07/2019 12:51 PM CDT [facility] ABSOLUTE EOSINOPHIL 0.02 0.00 - 0.40 10(3)/mcL 07/07/2019 12:51 PM CDT [facility] ABSOLUTE BASOPHILS 0.01 0.00 - 0.10 10(3)/[facility] 07/07/2019 12:51 PM CDT [facility] NRBC PER 100 WBC 0 07/07/19 20 12:51 PM CDT [facility] Blood specimen (specimen) Venous Catheter (IV) / Unknown 07/07/2019 12:31 PM CDT 07/07/2019 12:44 PM CDT us Faizan Loco PAC HEMATOLOGY ORDERABLE S Final Result [facility] [address] [place] [address] * (ABNORMAL) CMP (Comprehensive Metabolic Panel) (07/07/2019 12:31 PM CDT) SODIUM 139 136 - 144 mmol/L 07/07/2019 1:17 PM CDT [facility] POTASSIUM 3.9 3.5 - 5.1 mmol/L 07/07/2019 1:17 PM T [facility] CHLORIDE 100 100 - 110 mmol/L 07/07/2019 1:17 PM [facility] CO2, VENOUS 25 22 - 32 mmol/L 07/07/2019 1:17 PM [facility] ANION GAP 17.9 8.0 - 20.0 mmol/L 07/07/2019 1:17 PM T [facility] GLUCOSE 91 70 - 99 mg/dL 07/07/2019 1:17 PM T [facility] BUN 17 6 - 20 mg/dL 07/07/2019 1:17 PM [facility] CREATININE, BLOOD 0.63 0.60 - 1.10 mg/dL 07/07/2019 1:17 PM [facility] BUN/CREATININE RATIO 27(H) 12 - 20 ratio 07/07/2019 1:17 PM [facility] TOTAL PROTEIN 7.6 6.0 - 8.3 g/dL 07/07/2019 1:17 PM [facility] ALBUMIN 4.2 3.5 - 5.2 g/dL 07/07/2019 1:17 PM [facility] Comment: The colormetric methods used for the determination of Albumin may lead to falsely elevated test results in patients suffering from renal failure or insufficiency due to interference with other proteins. A/G RATIO 1.2 1.0 - 2.0 07/07/2019 1:17 PM [facility] CALCIUM 9.7 8.9 - 10.3 mg/dL 07/07/2019 1:17 PM [facility] T BILI 0.5 <=1.2 mg/dL 07/07/2019 1:17 PM [facility] SGOT (AST) 12 <=32 U/L 07/07/2019 1:17 PM [facility] SGPT (ALT) 12 <=33 U/L 07/07/2019 1:17 PM CDT [facility] ALKALINE PHOSPHATASE 48 35 - 105 U/L 07/07/2019 1:17 PM CDT [facility] GFR, EST. NONAFRICAN >60 >=60 07/07/2019 1:17 PM CDT [facility] GFR, EST. >60 >=60 020 1:17 PM CDT [facility] Comment: Creatinine Clearance is the preferred criteria for selecting drug dose adjustments in renally impaired patients. ??The GFR is provided as additional pertinent clinical information. GFR is reported in mL/min/1.73 sq m. Blood specimen (specimen) Venous Catheter (IV) / Unknown 07/07/2019 12:31 PM CDT 07/07/2019 12:44 PM CDT Faizan Loco PAC CHEMISTRY ORDERABLES Final Result Performing Organization Address [facility] Co de Phone Number [facility] [address] [place] [address] * (ABNORMAL) C-Reactive Protein Qnt (Crp) (07/07/2019 12:31 PM CDT) C-REACTIVE PROTEIN 0.56(H) <0.50 mg/dL 07/07/2019 1:17 PM CDT [facility] Blood specimen (specimen) Venous Catheter (IV) / Unknown 07/07/2019 12:31 PM CDT 07/07/2019 12:44 PM CDT Faizan Loco PAC CHEMISTRY ORDERABLES Final Result Performing Organization Address [facility] Co de Phone Number [facility] [address] [place] [address] documented in this encounter Visit Diagnoses Diagnosis Bilateral hand swelling- Primary documented in this encounter Administered Medications Inactive Administered Medications - up to 3 most recent administrations Medication Order MAR Action Action Date Dose Rate Site dexamethasone (DECADRON) injection 8 mg 8 mg, Intravenous, ONCE, 1 dose, On Sun07/07/19 at 1300 Given 07/07/2019 12:55 PM CDT 8 mg documented in this encounter Active and Recently Administered Medications Times are shown in CDT. 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
--- OUTSIDE RECORDS SUMMARY | 2024-02-24 19:48 | XMS_ITS | Encounter Summary ---
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
--- OUTSIDE RECORDS SUMMARY | 2024-02-24 19:48 | XMS_ITS | Encounter Summary ---
Author Organization [facility] Address [address] [place] [place] [address] Phone Care Team Providers Care Relief Mate Name Role Phone Gayla Barker APRN, VINEYARD SUPERVISOR Primary Care Provider Reason for Visit * Reason Comments Medication Reaction Encounter Details Date Type Department Care Team ([facility] Contact Info) Description 06/19/2019 3:43 PM CDT - 06/19/2019 4:08 PM CDT Emergency [facility] Emergency [address] [place] [address] Faizan Loco, PAC [address] [place] [address] Medication reaction, initial encounter Discharge Disposition: Discharged to home or Selfcare [...] on file Legal Sex Female 10:27 AM REPRODUCTIVE HEALTHCARE ASSISTANT Gender Identity Not on file Sexual Orientation Not on file COVID-19 Exposure Response Date Recorded In the last month, have you been in contact with someone who was confirmed or suspected to have Coronavirus / COVID-19? No / Unsure 06/19/2019 3:35 PM CDT documented as of this encounter Last Filed Vital Signs Vital Sign Reading Time Taken Comments Blood Pressure 120/85 06/19/2019 3:36 PM CDT Pulse 100 06/19/2019 3:34 PM CDT Temperature 36.3 ??C (97.3 ??F) 06/19/2019 3:34 PM CD T Respiratory Rate 18 06/19/2019 3:34 PM CDT Oxygen Saturation 100% 06/19/2019 3:34 PM CDT Inhaled Oxygen Concentration - - Weight 70.3 kg (155 lb) 06/19/2019 3:34 PM CDT Height 160 cm (5' 3 ) 06/19/2019 3:34 PM CDT Body Mass Index 27.46 06/19/2019 3:34 PM CDT documented in this encounter Discharge Instructions * Attachments The following attachments cannot be sent through Care Everywhere. * Drug Reaction, Other (Spanish) documented in this encounter Medications at [...] needed for Anxiety. 30 Tab 06/18/2019 0 azithromycin (ZITHROMAX) 250 MG Tablet 2 tab(s) daily for 1 day, then 1 tab(s) daily for days 2-5. 6 Tab 06/02/2019 0 folic acid (FOLVITE) 1 MG Tablet Take 1 mg by mouth. 04/01/2019 0 guaiFENesin (ROBITUSSIN) 100 MG/5ML Solution Take 10 mL by mouth every 6 hours as needed for Cough. 240 mL 05/23/2019 0 predniSONE (DELTASONE) 10 MG Tablet Take 1 Tab by mouth daily. 90 Tab 3 05/09/2019 0 predniSONE (DELTASONE) 5 MG Tablet Take 1 Tab by mouth daily. 90 Tab 3 05/09/2019 0 documented as of this encounter ED Notes * Tran Quiñonez RN - 06/19/2019 4:07 PM CDT Patient discharged. Discharge instructions and patient educational material reviewed with patient; questions and concerns addressed; patient verbalizes understanding, using teach back. Patient was given 0 prescriptions. Patient discharged per ambulatory mode with a steady gait to the exit. PT declined wheelchair. Respirations even and non-labored. No signs of distress noted. * Tran Quiñonez RN - 06/19/2019 3:56 PM CDT No change in PT condition since triage note. PT resting comfortably. PT A&O x 4. Speech clear. Respirations even and non-labored. No signs of distress noted. * Faizan Loco, CARIDAD - 06/19/2019 3:56 PM CDT Chief Complaint Patient presents with ??? Medication Reaction Carito Rausch is a 29 y.o. female who presents to the ED c/o generalized myalgias for 1 week after starting azathioprine for lupus by rheumatology prior to sxs onset. She states her skin is sensitive and she is having intermittent dizziness. No neuro changes, CP, SOB, abd, n/v/d reported. Patient has an appt with her historical interpreter tomorrow. She is also requesting to discuss lab results drawn yesterday. Past Medical History Positives No date: Lupus (systemic lupus erythematosus) (HCC) [...] needed for Anxiety. 30 Tab 0 ??? azithromycin (ZITHROMAX) 250 MG Tablet 2 tab(s) daily for 1 day, then 1 tab(s) daily for days 2-5. 6 Tab 0 ??? folic acid (FOLVITE) 1 MG Tablet Take 1 mg by mouth. ??? guaiFENesin (ROBITUSSIN) 100 MG/5ML Solution Take 10 mL by mouth every 6 hours as needed for Cough. (Patient not taking: Reported on 06/18/2019) 240 mL 0 ??? hydroxychloroquine (PLAQUENIL) 200 [...] file Gets together: Not on file Attends cheondoism service: Not on file Active member of [...] History Narrative ??? Not on file BP 120/85 Pulse 100 Temp 97.3 ??F (36.3 ??C) (Tympanic) Resp 18 Ht 5' 3 (1.6 m) Wt 155 lb (70.3 kg) LMP 04/14/2019 (LMP Unknown) SpO2 100% Unknown BMI 27.46 kg/m?? Review of Systems Constitutional: Negative for chills, fatigue and fever. HENT: Negative for congestion and sore throat. Respiratory: Negative for cough, chest tightness, shortness of breath and wheezing. Cardiovascular: Negative for chest pain and palpitations. Gastrointestinal: Negative for abdominal pain, constipation, diarrhea and nausea. Genitourinary: Negative for dysuria, frequency, hematuria and urgency. Musculoskeletal: Positive for myalgias. Negative for arthralgias and back pain. Skin: Negative for color change and wound. Neurological: Negative for dizziness, numbness and headaches. All other systems reviewed and are negative. Physical Exam Vitals signs and nursing note reviewed. Constitutional: General: She is not in acute distress. Appearance: She is well-developed. She is not diaphoretic. HENT: Head: Normocephalic and atraumatic. Right Ear: Tympanic membrane normal. Left Ear: Tympanic membrane normal. Nose: Nose normal. No congestion. Mouth/Throat: Mouth: Mucous membranes are moist. Eyes: Pupils: Pupils are equal, round, and [...] cranial nerve deficit. Psychiatric: Behavior: Behavior normal. Procedures Imaging Results None [facility] Coding Clinical Impression 1. Medication reaction, initial encounter Discussed with patient pros and cons of stoping AZA today. She would like to stop and reassess sxs in a few days. She is to keep rheumatology appt tomorrow. He laboratory results have been made available. Return to ED for worsening sxs. The [...] the need for follow up. Cosigned by Alton Valerio MD at 06/19/2019 4:17 PM CDT * Samantha Bazan RN - 06/19/2019 3:40 PM CDT Pt ambulatory to triage with c/o body aches after starting azathioprine a week ago. Pt also reportsdizziness with it. Denies chest pain/SOB. Respirations even and non labored. Denies N/V/D or fevers/chills. documented in this encounter Plan of Treatment Not on file documented as of this encounter Visit Diagnoses Diagnosis Medication reaction, initial encounter- Primary documented in this encounter Additional Health Concerns Assessment Noted Time PHQ-9 Depression Total Score: 0 03/25/19 20 10:00 AM REPRODUCTIVE HEALTHCARE ASSISTANT documented as of this encounter Care Teams Relief Mate Relationship Specialty Start Date End Date Gayla Barker, SAS BI DEVELOPER, VINEYARD SUPERVISOR [address] [place] [address] PCP - General Advanced Practice Nurse 03/25/19 documented as of this encounter
--- OUTSIDE RECORDS SUMMARY | 2024-02-24 19:48 | XMS_ITS | Encounter Summary ---
Author Organization [facility] Address [address] [place] [address] Phone Care Team Providers Care Long Haul Truck Driver Name Role Phone Gayla Barker APRN, COOPERAGE SHOP SUPERVISOR Primary Care Provider Reason for Visit * Reason Comments Care Management SW assessment Encounter Details Date Type Department Care Team (Late st Contact Info) Description 06/02/2019 Care Management [facility] Framing Specialist Management [address] [place] [address] Melissa Blevins LSW MS Care Management (SW assessment) Social History Tobacco Use Types Packs/Day Years [...] on file Legal Sex Female 10:27 AM CONVENTION SERVICES DIRECTOR Gender Identity Not on file Sexual Orientation Not on file COVID-19 Exposure Response Date Recorded In the last month, have you been in contact with someone who was confirmed or suspected to have Coronavirus / COVID-19? No / Unsure 05/31/2019 9:37 AM CDT documented as of this encounter Progress Notes * Melissa Blevins LSW - 06/02/2019 12:56 PM CDT Carito is a 29 year old female who was referred by Gayla Barker APN for no health insurance. Patient's medical history is significant for lupus, herpes, weakness, pain in joint. glassworker assessment completed with Carito by phone on this date. Also present was N/A. The following areas were assessed: Living Situation and Support Patient lives in spouse. Patient lives in her own home with spouse. Patient denies any trouble affording utilities or mortgage. (Number of steps, type of dwelling, rent/own/subsidized, utilities, wholives there, support system, caregiver) Needs: None Community Involvement None (Community supports, food pantries, utility assistance, DORS/Homemaker, PUNS, support groups) Needs: Denies need. Financial and Insurance Patient is currently unemployed. 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 has healthinsurance available through his job but patient states cost is 700 a month and they cannot afford that high of a monthly premium. (Income sources, SNAP, disability, WIC, if monthly needs are met, insurance/extra help, is coverage adequate) Needs: Over assets for [place] medicaid; agreed to apply for [facility] assistance Transportation and Access to Care Patient has valid license and car. (Current mode of transportation - in town, out of town, emergent, does patient drive, any barriers to accessing care including meds) Needs: None Substance Use, Mental Health and Legal Not assessed at this time (Patient history/current use of substances, including tobacco, mental health including who prescribes meds, legal/probation, and domestic violence) Needs: None DME and ADL's Patient is independent with ADL's. Patient uses no DME. (DME, ADL's, including safety devices and pain concerns) Needs: None Medication Management [facility] uses [facility]. Patient manages her own medications and had not questions about her medications. Patient uses Good RX card for prescription savings. (Pill box, who sets up meds, pharmacy preference, understanding of meds, adherence) Needs: None Education/Vocation [employer] education. Currently unemployed. (Level of education, learning strengths and weaknesses, current job, future plans for job/training, school information/involvement for peds) Needs: None Advanced Care Planning No ACP on file (Is there a current ACP, discussion record, guardian, decisional capacity) Needs: Patient declined to complete ACP or schedule ACP at this time. None ( history, eligible for benefits) Needs: None At this time, enrollment into care management is not recommended. Carito is in agreement. Patient agreed to complete [facility] application. [employer] MATE will mail her a copy today and follow up inone week to ensure she received it. Patient also plans to call [employer] care act and inquire about purchasing a health plan. Patient states she has the contact number already. (summary of next steps) Initial CM follow up scheduled in one week by phone. Patient is agreeable. documented in this encounter Plan of Treatment Not on file documented as of this encounter Visit Diagnoses Not on filedocumented in this encounter Additional Health Concerns Assessment Noted Time PHQ-9 Depression Total Score: 0 03/25/19 20 10:00 AM CONVENTION SERVICES DIRECTOR documented as of this encounter Care Teams Long Haul Truck Driver Relationship Specialty Start Date End Date Gayla Barker, HEBREW TEACHER, COOPERAGE SHOP SUPERVISOR [address] [place] [address] PCP - General Advanced Practice Nurse 03/25/19 documented as of this encounter
--- OUTSIDE RECORDS SUMMARY | 2024-02-24 19:48 | XMS_ITS | Encounter Summary ---
Author Organization [facility] Address [address] [place] [address] Phone Care Team Providers Care Title Agent Name Role Phone Gayla Barker APRN, VIBRATING SCREEN OPERATOR Primary Care Provider Reason for Visit * Reason Onset Date Comments Abdominal Pain 06/05/2019 Vomiting 06/05/2019 Diarrhea 06/05/2019 Encounter Details Date Type Department Care Team (Late st Contact Info) Description 06/05/2019 Nurse Triage [facility] [address] [place] [address] Gayla Barker, ANNIE, VIBRATING SCREEN OPERATOR [address] [place] [address] Abdominal Pain; Vomiting; Diarrhea Social History Tobacco Use Types Packs/Day Years [...] on file Legal Sex Female 10:27 AM CLASS 1 OWNER OPERATOR Gender Identity Not on file Sexual Orientation Not on file COVID-19 Exposure Response Date Recorded In the last month, have you been in contact with someone who was confirmed or suspected to have Coronavirus / COVID-19? No / Unsure 05/31/2019 9:37 AM CDT documented as of this encounter Miscellaneous Notes * Telephone Encounter - Alyssa Almodovar RN - 06/05/2019 10:45 AM CDT SITUATION: Abdominal pain, vomiting, diarrhea BACKGROUND: Symptoms started 20 days ago. Diarrhea has been happening since March. Currently taking a Zpack, started 4 days ago. ASSESSMENT: Symptom Description / Location: Patient is calling and states she's having abdominal pain that comes and goes above the belly button, diarrhea, and vomiting. Patient reports vomiting x5 today and diarrhea x5. Patient states she's unsure if it's hormonal from being or from medications. Denies any other symptoms. Pain (0-10): 5/10 Temp: denies fever Treatment / Response: Lomotil, helped a little bit. LMP / / : Miscarriage almost 2 weeks ago RECOMMENDATION: See care advice and disposition for Guideline First positive answer recorded, all responses to prior questions were negative. If symptoms increase, change or if new symptoms develop, call your HCP or call back. Recommendations were based on caller information and is not a diagnosis. Verified and reviewed all triage information with caller. Reason for Disposition ??? Pain is mainly in upper abdomen (if needed ask: is it mainly above the belly button? ) ??? Patient wants to be seen ? ? MILD to MODERATE vomiting (e.g., 1-5 times/day) and lasts > 48 hours (2 days) Protocols used: ABDOMINAL PAIN - FEMALE-A-OH, ABDOMINAL PAIN - UPPER-A-OH, [id number]-HS Scheduled patient with [place] today at 1:20 PM. documented in this encounter Plan of Treatment Not on file documented as of this encounter Visit Diagnoses Not on filedocumented in this encounter Additional Health Concerns Assessment Noted Time PHQ-9 Depression Total Score: 0 03/25/19 20 10:00 AM CLASS 1 OWNER OPERATOR documented as of this encounter Care Teams Title Agent Relationship Specialty Start Date End Date Gayla Barker, GROCERY CLERK STOCKING, VIBRATING SCREEN OPERATOR [address] [place] [address] PCP - General Advanced Practice Nurse 03/25/19 documented as of this encounter
--- OUTSIDE RECORDS SUMMARY | 2024-02-24 19:48 | XMS_ITS | Encounter Summary ---
Author Organization [facility] Address [address] [facility] [place] [address] Phone Care Team Providers Care Oil Winterizer Name Role Phone Gayla Barker APRN, RETAIL AND RESTAURANT Primary Care Provider Reason for Visit * Reason Comments Care Management follow up call on re source provided Encounter Details Date Type Department Care Team (Late st Contact Info) Description 06/09/2019 Care Management [facility] Physics Tutor Management [address] [place] [address] Melissa Blevins LSW [place] Care Management (follow up call on resource provided) Social History Tobacco Use Types Packs/Day Years [...] file Legal Sex Female 10:27 AM MATERIAL SCHEDULER Gender Identity Not on file Sexual Orientation Not on file COVID-19 Exposure Response Date Recorded In the last month, have you been in contact with someone who was confirmed or suspected to have Coronavirus / COVID-19? No / Unsure 05/31/2019 9:37 AM CDT documented as of this encounter Progress Notes * Melissa Blevins LSW - 06/09/2019 2:53 PM CDT Placed follow up call to patient to ensure she received [facility] leann application in the mail. No answer. Left detailed VM asking for return call from the patient. * Melissa Blevins LSW - 06/09/2019 2:53 PM CDT Placed second attempt to reach patient to ensure she received [facility] leann application. No answer. Left detailed VM with return number for MUTUAL FUNDS AGENT if patient has any further questions or concerns. documented in this encounter Plan of Treatment Not on file documented as of this encounter Visit Diagnoses Not on filedocumented in this encounter Additional Health Concerns Assessment Noted Time PHQ-9 Depression Total Score: 0 03/25/19 20 10:00 AM MATERIAL SCHEDULER documented as of this encounter Care Teams Oil Winterizer Relationship Specialty Start Date End Date Gayla Barker, DIRECTOR PRIVATE MUSIC THERAPY AGENCY, RETAIL AND RESTAURANT [address] [place] [address] PCP - General Advanced Practice Nurse 03/25/19 documented as of this encounter
--- OUTSIDE RECORDS SUMMARY | 2024-02-24 19:48 | XMS_ITS | Encounter Summary ---
Author Organization [facility] Address [address] [place] [address] Phone Care Team Providers Care Brakes Inspector Name Role Phone Gayla Barker APRN, SYSTEMS TEST ENGINEER Primary Care Provider Reason for Visit * Reason Onset Date Comments Results 06/25/2019 Encounter Details Date Type Department Care Team (Late st Contact Info) Description 06/25/2019 Telephone [facility] [address] [place] [address] Gayla Barker, ANNIE, SYSTEMS TEST ENGINEER [address] [place] [address] Results Social History Tobacco Use [...] file Legal Sex Female 10:27 AM PRIMER INSERTING MACHINE OPERATOR Gender Identity Not on file Sexual Orientation Not on file COVID-19 Exposure Response Date Recorded In the last month, have you been in contact with someone who was confirmed or suspected to have Coronavirus / COVID-19? No / Unsure 06/25/2019 8:49 AM CDT documented as of this encounter Miscellaneous Notes * Telephone Encounter - Leti Doan RN - 06/26/2019 8:42 AM CDT Please see message below. Zuri called from radiology and radiologist are reading the MRI now. Patient is aware and verbalizes understanding. Please see message below. Patient anxious to get results. Patient would like to have results by today 06/26/2019. Please advise. * Telephone Encounter - Leti Doan RN - 06/26/2019 8:31 AM CDT Patient calling and checking on message below. Please see message below. Per chart review MRI notedto be in process . Called and spoke with Zuri in radiology and per Zuri, no notes noted on whether radiologist is waiting on other imaging to compare or if MRI has not been read. Zuri will talk to radiologist. Patient is aware and verbalizes understanding. * Telephone Encounter - Leti Doan RN - 06/25/2019 4:36 PM CDT Patient calling and asking for results of her MRI, patient reports that she had the MRI today 06/25/2019. Per chart review, mri noted to be in process . Has provider received results. Please advise. Patient asking for PCP to call her to discuss MRI and other questions related to her dizziness, memory loss and headaches. documented in this encounter Plan of Treatment Not on file documented as of this encounter Visit Diagnoses Not on filedocumented in this encounter Additional Health Concerns Assessment Noted Time PHQ-9 Depression Total Score: 0 03/25/19 20 10:00 AM PRIMER INSERTING MACHINE OPERATOR documented as of this encounter Care Teams Brakes Inspector Relationship Specialty Start Date End Date Gayla Barker, SOFTWARE ENGINEERING ANALYST, SYSTEMS TEST ENGINEER [address] [place] [address] PCP - General Advanced Practice Nurse 03/25/19 documented as of this encounter
--- OUTSIDE RECORDS SUMMARY | 2024-02-24 19:48 | XMS_ITS | Encounter Summary ---
Author Organization [facility] Address [address] [place] [address] Phone Care Team Providers Care Capacitor Inspector Name Role Phone Gayla Barker APRN, HARSHA Primary Care Provider Reason for Visit * Reason Onset Date Comments Results 04/29/2019 x-ray Encounter Details Date Type Department Care Team (Late st Contact Info) Description 04/29/2019 Telephone [facility] [address] [place] [address] Gayla Barker APRN, ROAD MECHANIC [address] [place] [address] Results (x-ray) Social History Tobacco [...] on file Legal Sex Female 10:27 AM BROADCAST MAINTENANCE TECHNICIAN Gender Identity Not on file Sexual Orientation Not on file documented as of this encounter Miscellaneous Notes * Telephone Encounter - Leti Gusman RN - 04/29/2019 10:29 AM BROADCAST MAINTENANCE TECHNICIAN Phoned patient with x-ray results. Patient aware and verbalized understanding. No questions for television writer. DCAST MAINTENANCE TECHNICIAN * Telephone Encounter - Leti Gusman RN - 04/29/2019 10:29 AM BROADCAST MAINTENANCE TECHNICIAN ----- Message from Gayla Barker APN, CNP sent at 04/29/2019 10:01 AM BROADCAST MAINTENANCE TECHNICIAN ----- Lumbar vertebral body heights and anterior posterior alignment is maintained. DCAST MAINTENANCE TECHNICIAN documented in this encounter Plan of Treatment Not on file documented as of this encounter Visit Diagnoses Not on filedocumented in this encounter Additional Health Concerns Assessment Noted Time PHQ-9 Depression Total Score: 0 03/25/19 10:00 AM BROADCAST MAINTENANCE TECHNICIAN documented as of this encounter Care Teams Capacitor Inspector Relationship Specialty Start Date End Date Gayla Barker APRN, CNP [address] [place] [address] PCP - General Advanced Practice Nurse 03/25/19 documented as of this encounter
--- OUTSIDE RECORDS SUMMARY | 2024-02-24 19:48 | XMS_ITS | Encounter Summary ---
Author Organization [facility] Address [address] [place] [address] Phone Care Team Providers Care Instructor Kindergarten Name Role Phone Galya Barker APRN, TRAVERSE ROD ASSEMBLER Primary Care Provider Encounter Details Date Type Department Care Team (Latest Contact Info) Description 06/16/2019 Transcribe Orders [facility] Admitting [address] [place] [id number] Provider, Not On File [place] Encounter for long-term (current) use of medications (Primary Dx); High risk medications (not anticoagulants) long-term use; [...] file Legal Sex Female 10:27 AM EDUCATIONAL ADMINISTRATION TEACHER Gender Identity Not on file Sexual Orientation Not on file COVID-19 Exposure Response Date Recorded In the last month, have you been in contact with someone who was confirmed or suspected to have Coronavirus / COVID-19? No / Unsure 05/31/2019 9:37 AM CDT documented as of this encounter Plan of Treatment Not on file documented as of this encounter Results * (ABNORMAL) URINALYSIS REFLEX IF INDICATED BY ABNORMAL RESULTS (06/18/2019 5:05 PM CDT) SPECIFIC GRAVITY 1.020 1.003 - 1.030 06/18/2019 5:43 PM CDT [facility] URINE PH 6.0 5.0 - 9.0 06/18/2019 5:43 PM CDT [facility] WBC ESTERASE Negative Negative 06/18/2019 5:43 PM CDT [facility] NITRITE Negative Negative 06/18/2019 5:43 PM CDT [facility] PROTEIN, RANDOM URINE 30 mg/dL(A) Negative 06/18/2019 5:43 PM CDT [facility] URINE GLUCOSE, QUAL Negative Negative 06/18/2019 5:43 PM CDT [facility] URINE KETONES Negative Negative 06/18/2019 5:43 PM CDT [facility] UROBILINOGEN Normal Normal mg/dL 06/18/2019 5:43 PM CDT [facility] URINE BILIRUBIN Negative Negative 0 5:43 PM CDT [facility] URINE BLOOD 10 /uL(A) Negative pierre/ul 06/18/2019 5:43 PM CDT [facility] URINALYSIS COLOR Dark Yellow 020 5:43 PM CDT [facility] URINALYSIS CLARITY Slightly Cloudy 06/18/2019 5:43 PM CDT [facility] WBC (Urine) 0-5 Negative, 0-5 /hpf 06/18/2019 5:43 PM CDT [facility] URINE RBC'S 0-2 Negative, 0-2 /hpf 06/18/2019 5:43 PM CDT [facility] EPITHELIAL CELLS Small amount /lpf 2019 5:43 PM CDT [facility] BACTERIA, URINE Few(A) Negative /hpf 06/18/2019 5:43 PM CDT [facility] Urine specimen (specimen) URINE SPECIMEN / Unknown Non-Phlebotomy Collection / Unknown 06/18/2019 5:05 PM CDT 06/18/2019 5:10 PM CDT us Not On File Provider URINE ORDERABLES Final Resu lt [facility] [place] [address] * C3 COMPLEMENT GLOBULIN B-1C (06/18/2019 5:02 PM CDT) C3 COMPLEMENT 87 83 - 193 mg/dL 06/19/2019 3:19 PM CDT [facility] Blood specimen (specimen) Venipuncture / Unknown 06/18/2019 5:02 PM CDT 06/18/2019 5:14 PM CDT us Not On File Provider CHEMISTRY ORDERABLES Final Result Performing Organization Address City/[facility]/ZIP Co de Phone Number [facility] [address] [place] [address], [place] * (ABNORMAL) C4 COMPLEMENT (06/18/2019 5:02 PM CDT) C4 COMPLEMENT 10(L) 15 - 57 mg/dL 06/19/2019 3:19 PM CDT [facility] Blood specimen (specimen) Venipuncture / Unknown 06/18/2019 5:02 PM CDT 06/18/2019 5:14 PM CDT us Not On File Provider CHEMISTRY ORDERABLES Final Result Performing Organization Address City/[facility]/ZIP Co de Phone Number [facility] [address] [place] [address], [place] * C-REACTIVE PROTEIN (CRP) QUANT (06/18/2019 5:02 PM CDT) C-REACTIVE PROTEIN 0.27 <0.50 mg/dL 06/18/2019 6:07 PM CDT [facility] Blood specimen (specimen) Venipuncture / Unknown 06/18/2019 5:02 PM CDT 06/18/2019 5:14 PM CDT us Not On File Provider CHEMISTRY ORDERABLES Final Result Performing Organization Address [facility] Co de Phone Number [facility] [address] [place] [address] * ERYTHROCYTE SEDIMENTATION RATE (ESR) (06/18/2019 5:02 PM CDT) ESR (SED RATE, ERYTHROCYTE SEDIMENTATION RATE) 17 0 - 20 mm/h 06/18/2019 6:56 PM CDT [facility] Comment:Patients presenting with abnormally high or low RBC counts and other hemoglobinopathies could affect the results for the erythrocyte sedimentation rate (ESR). Results should be clinically correlated. Blood specimen (specimen) Venipuncture / Unknown 06/18/2019 5:02 PM CDT 06/18/2019 5:14 PM CDT us Not On File Provider HEMATOLOGY ORDERABLES Final Result Performing Organization Address [facility] Co de Phone Number [facility] [address] [place] [address] * (ABNORMAL) CMP (COMPREHENSIVE METABOLIC PANEL) (06/18/2019 5:02 PM CDT) SODIUM 136 136 - 144 mmol/L 06/18/2019 6:07 PM CDT [facility] POTASSIUM 4.2 3.5 - 5.1 mmol/L 06/18/2019 6:07 PM CDT [facility] CHLORIDE 97(L) 100 - 110 mmol/L 06/18/2019 6:07 PM CDT [facility] CO2, VENOUS 25 22 - 32 mmol/L 06/18/2019 6:07 PM CDT [facility] ANION GAP 18.2 8.0 - 20.0 mmol/L 06/18/2019 6:07 PM CDT [facility] GLUCOSE 106(H) 70 - 99 mg/dL 06/18/2019 6:07 PM [facility] BUN 14 6 - 20 mg/dL 06/18/2019 6:07 PM [facility] CREATININE, BLOOD 0.58(L) 0.60 - 1.10 mg/dL 06/18/2019 6:07 PM [facility] BUN/CREATININE RATIO 24(H) 12 - 20 ratio 06/18/2019 6:07 PM [facility] TOTAL PROTEIN 7.6 6.0 - 8.3 g/dL 06/18/2019 6:07 PM [facility] ALBUMIN 4.2 3.5 - 5.2 g/dL 06/18/2019 6:07 PM [facility] Comment: The colormetric methods used for the determination of Albumin may lead to falsely elevated test results in patients suffering from renal failure or insufficiency due to interference with other proteins. A/G RATIO 1.2 1.0 - 2.0 06/18/2019 6:07 PM [facility] CALCIUM 9.6 8.9 - 10.3 mg/dL 06/18/2019 6:07 PM [facility] T BILI <=0.2 <=1.2 mg/dL 06/18/2019 6:07 PM [facility] SGOT (AST) 11 <=32 U/L 06/18/2019 6:07 PM [facility] SGPT (ALT) 10 <=33 U/L 06/18/2019 6:07 PM T [facility] ALKALINE PHOSPHATASE 45 35 - 105 U/L 06/18/2019 6:07 PM [facility] GFR, EST. NONAFRICAN >60 >=60 06/18/2019 6:07 PM [facility] GFR, EST. >60 >=60 020 6:07 PM T [facility] Comment: Creatinine Clearance is the preferred criteria for selecting drug dose adjustments in renally impaired patients. ??The GFR is provided as additional pertinent clinical information. GFR is reported in mL/min/1.73 sq m. Blood specimen (specimen) Venipuncture / Unknown 06/18/2019 5:02 PM CDT 06/18/2019 5:14 PM CDT us Not On File Provider CHEMISTRY ORDERABLES Final Result [facility] [address] [place] [address] documented in this encounter Visit Diagnoses Diagnosis [...] Total Score: 0 03/25/19 20 10:00 AM EDUCATIONAL ADMINISTRATION TEACHER documented as of this encounter Care Teams Instructor Kindergarten Relationship Specialty Start Date End Date Gayla Barker, MAINFRAME ANALYST, TRAVERSE ROD ASSEMBLER [address] [place] [address] PCP - General Advanced Practice Nurse 03/25/19 documented as of this encounter
--- OUTSIDE RECORDS SUMMARY | 2024-02-24 19:48 | XMS_ITS | Encounter Summary ---
Author Organization [facility] Address [address] [place] [address] Phone Care Team Providers Care Drilling Contractor Name Role Phone Gayla Barker APRN, CNP Primary Care Provider Reason for Visit * Radiology Services (Routine) - Closed Specialty Diagnoses / Procedures Referred By Jud t Referred To Contact Radiology Diagnoses Seizure (HCC) Procedures MRI BRAIN W/WO CONTRAST Gayla Barker APRN, HARSHA Phone: tel: fax: Referral ID Status Reason Start Date Expiration Date Visits Re quested Visits Authorized [id number] Closed 04/28/2019 1 1 Encounter Details Date Type Department Care Team (Latest Contact Info) Description 06/25/2019 9:14 AM CDT - 06/25/2019 11:59 PM CDT Hospital [facility] MRI [address] [place] [address] Gayla Barker APRN, CNP [address] [place] [address] Discharge Disposition: Discharged to home or Selfcare [...] on file Legal Sex Female 10:27 AM LABOR ECONOMICS PROFESSOR Gender Identity Not on file Sexual Orientation [...] 30 Tab 06/18/2019 0 ergocalciferol (VITAMIN D) 93053 UNIT Capsule TAKE 1 CAPSULE BY MOUTH ONE TIME PER WEEK 06/21/2019 0 predniSONE (DELTASONE) 10 MG Tablet Take 1 Tab by mouth daily. 90 Tab 3 05/09/2019 0 predniSONE (DELTASONE) 5 MG Tablet Take 1 Tab by mouth daily. 90 Tab 3 05/09/2019 0 documented as of this encounter Plan of Treatment Not on file documented as of this encounter Procedures Procedure Name Priority Date/Time Associated Diagnosis Comments MRI BRAIN W/WO CONTRAST Routine 06/25/2019 10:40 AM CDT Seizure (HCC) documented in this encounter Visit Diagnoses Not on filedocumented in this encounter Administered Medications Inactive Administered Medications - up to 3 most recent administrations Medication Order MAR Action Action Date Dose Rate Site gadoteridol (PROHANCE) injection 15 mL 15 mL, Intravenous, ONCE, 1 dose, On Sun06/25/19 at 1000 Given 06/25/2019 10:09 AM CDT 15 mL documented in this encounter Additional Health Concerns Assessment Noted Time PHQ-9 Depression Total Score: 0 03/25/19 10:00 AM LABOR ECONOMICS PROFESSOR documented as of this encounter Care Teams Drilling Contractor Relationship Specialty Start Date End Date Gayla Barker APRN, COPYING MACHINE REPAIRER [address] [place] [address] PCP - General Advanced Practice Nurse 03/25/19 documented as of this encounter
--- OUTSIDE RECORDS SUMMARY | 2024-02-24 19:48 | XMS_ITS | Encounter Summary ---
Author Organization [employer] Care Team Providers Care Filter Operator Name Role Phone Gayla Barker APRN, HARSHA Primary Care Provider Encounter Details Date Type Department Care Team (Latest Contact Info) Description 07/13/2019 Travel Social History Tobacco Use Types Packs/Day [...] on file Legal Sex Female 10:27 AM INDEPENDENT JEWELER Gender Identity Not on file Sexual Orientation [...] difficile Rule-Out 07/13/2019 07/13/20192019 12:30 PM CDT Assessment Noted Time PHQ-9 Depression Total Score: 0 03/25/19 20 10:00 AM INDEPENDENT JEWELER documented as of this encounter Care Teams Filter Operator Relationship Specialty Start Date End Date Gayla Barker APRN, PRESCHOOL TEACHER AIDE [address] [place] [address] PCP - General Advanced Practice Nurse 03/25/19 documented as of this encounter
--- OUTSIDE RECORDS SUMMARY | 2024-02-24 19:48 | XMS_ITS | Encounter Summary ---
Author Organization [facility] Address [address] [place] [address] Phone Care Team Providers Care Smooth And Burr Worker Composites Name Role Phone Gayla Barker APRN, WARP KNITTER Primary Care Provider Reason for Visit * Reason Onset Date Comments Results 06/19/2019 Encounter Details Date Type Department Care Team (Late st Contact Info) Description 06/19/2019 Telephone [facility] [address] [place] [address] Gayla Barker, ANNIE, WARP KNITTER [address] [place] [address] Results Social History Tobacco Use [...] on file Legal Sex Female 10:27 AM SUEDE CLEANER Gender Identity Not on file Sexual Orientation Not on file COVID-19 Exposure Response Date Recorded In the last month, have you been in contact with someone who was confirmed or suspected to have Coronavirus / COVID-19? No / Unsure 06/19/2019 3:35 PM CDT documented as of this encounter Miscellaneous Notes * Telephone Encounter - Leti Gusman RN - 06/23/2019 8:25 AM CDT Patient is aware and verbalized understanding. * Telephone Encounter - Leti Gusman RN - 06/20/2019 9:31 AM CDT Attempted to phone patient, no answer and no voicemail. * Telephone Encounter - Gayla Barker APN, CNP - 06/20/2019 8:06 AM CDT I have released everything I can release for her to review. * Telephone Encounter - Sara Wasserman RN - 06/19/2019 4:19 PM CDT Patient is calling and states that she had labs done with rheumatology and she said they were sent to PCP. Patient states she was told the labs are fine. Patient has questions about the labs and is asking for PCP to release them to [facility]. Labs are in EMR dated 06/18/19. Please advise documented in this encounter Plan of Treatment Not on file documented as of this encounter Visit Diagnoses Not on filedocumented in this encounter Additional Health Concerns Assessment Noted Time PHQ-9 Depression Total Score: 0 03/25/19 10:00 AM SUEDE CLEANER documented as of this encounter Care Teams Smooth And Burr Worker Composites Relationship Specialty Start Date End Date Gayla Barker APRN, HARSHA [address] [place] [address] PCP - General Advanced Practice Nurse 03/25/19 documented as of this encounter
--- OUTSIDE RECORDS SUMMARY | 2024-02-24 19:48 | XMS_ITS | Encounter Summary ---
Author Organization [facility] Address [address] [place] [address] Phone Care Team Providers Care Nurses Superintendent Name Role Phone Daryl Barker APRN, PACKAGING ASSEMBLER Primary Care Provider Reason for Visit * Reason Onset Date Comments Follow-up 06/02/2019 Encounter Details Date Type Department Care Team (Late st Contact Info) Description 06/02/2019 Telephone [facility] [address] [place] [address] Daryl Barker, ANNIE, PACKAGING ASSEMBLER [address] [place] [address] Follow-up Social History Tobacco Use Types Packs/Day [...] file Legal Sex Female 10:27 AM BRICK KILN BURNER Gender Identity Not on file Sexual Orientation Not on file COVID-19 Exposure Response Date Recorded In the last month, have you been in contact with someone who was confirmed or suspected to have Coronavirus / COVID-19? No / Unsure 05/31/2019 9:37 AM CDT documented as of this encounter Miscellaneous Notes * Telephone Encounter - Alyssa Almodovar RN - 06/02/2019 12:49 PM CDT Notified patient. Verbalized understanding. * Telephone Encounter - Sara Reyez RN - 06/02/2019 11:59 AM CDT Left a message on patient VM to call back the office. * Telephone Encounter - Daryl Barker APN, CNP - 06/02/2019 10:19 AM CDT Medication approved * Addendum Note - Daryl Barker APN, CNP - 06/02/2019 10:19 AM CDTAddended by: DARYL BARKER on: 06/02/2019 10:19 AM Modules accepted: Orders * Addendum Note - Sara Reyez RN - 06/02/2019 10:10 AM CDTAddended by: SARA REYEZ on: 06/02/2019 10:10 AM Modules accepted: Orders * Telephone Encounter - Sara Reyez RN - 06/02/2019 10:09 AM CDT Pended for review. Please advise * Telephone Encounter - Daryl Barker APN, CNP - 06/02/2019 9:08 AM CDT Yes please pend Z-Maximilian for patient. * Telephone Encounter - Kristie Yee RN - 06/02/2019 9:01 AM CDT Patient was seen in the office on 05/26 for diarrhea, rib pain and sore throat. Chest x ray was completed and came back normal. Per patient, PCP said her throat looked red at the time of visit. Patient states she was tested for Covid 19 on 05/23. Results were negative. Patient is being tested againtoday due to being sick so long. Patient asking if PCP will call in azithromycin? Will PCP order? documented in this encounter Plan of Treatment Not on file documented as of this encounter Visit Diagnoses Not on filedocumented in this encounter Additional Health Concerns Assessment Noted Time PHQ-9 Depression Total Score: 0 03/25/19 20 10:00 AM BRICK KILN BURNER documented as of this encounter Care Teams Nurses Superintendent Relationship Specialty Start Date End Date Daryl Barker APRN, CNP [address] [place] [address] PCP - General Advanced Practice Nurse 03/25/19 documented as of this encounter
--- OUTSIDE RECORDS SUMMARY | 2024-02-24 19:48 | XMS_ITS | Encounter Summary ---
Author Organization [employer] Care Team Providers Care Control Valve Technician Name Role Phone Gayla Barker APRN, HARSHA Primary Care Provider Encounter Details Date Type Department Care Team (Latest Contact Info) Description 05/13/2019 Travel Social History Tobacco Use Types Packs/Day [...] on file Legal Sex Female 10:27 AM GLOBE CLEANER Gender Identity Not on file Sexual Orientation Not on file COVID-19 Exposure Response Date Recorded In the last month, have you been in contact with someone who was confirmed or suspected to have Coronavirus / COVID-19? No / Unsure 05/13/2019 8:06 AM CDT documented as of this encounter Plan of Treatment Not on file documented as of this encounter Visit Diagnoses Not on filedocumented in this encounter Additional Health Concerns Assessment Noted Time PHQ-9 Depression Total Score: 0 03/25/19 20 10:00 AM GLOBE CLEANER documented as of this encounter Care Teams Control Valve Technician Relationship Specialty Start Date End Date Gayla Barker APRN, HARSHA [address] [place] [address] PCP - General Advanced Practice Nurse 03/25/19 documented as of this encounter
--- OUTSIDE RECORDS SUMMARY | 2024-02-24 19:48 | XMS_ITS | Encounter Summary ---
Author Organization [facility] Address [address] [place] [address] Phone Care Team Providers Care Change Management Consultant Name Role Phone Gayla Barker APRN, HARSHA Primary Care Provider Encounter Details Date Type Department Care Team (Late st Contact Info) Description 05/14/2019 Care Management [facility] [address] [place] [address] Gayla Barker APRN, BREAKFAST SUPERVISOR [address] [place] [address] Social History Tobacco Use Types [...] on file Legal Sex Female 10:27 AM DELICATESSEN GOODS STOCK 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 No / Unsure 05/13/2019 8:06 AM CDT documented as of this encounter Miscellaneous Notes * Care Plan - Gayla Barker APN, CNP - 05/14/2019 12:51 PM CDT Serum test ordered. documented in this encounter Plan of Treatment Not on file documented as of this encounter Results * (ABNORMAL) HCG BETA SUBUNIT SERUM QUANT (05/14/2019 1:14 PM CDT) HCG BETA SUBUNIT, QUANT 42.08(H) <=5.00 mIU/mL 05/14/2019 1:38 PM CDT [facility] Blood specimen (specimen) Venipuncture / Unknown 05/14/2019 1:14 PM CDT 05/14/2019 1:14 PM CDT Narrative [facility] - 05/14/2019 1:38 PM CDT HCG Interpretive Reference Ranges Wks of : References Ranges 4 wks [phone] wks [phone] wks [phone] 7 wks [id number] 8 wks [id number] 9 wks [id number] 10 wks [id number] 14 wks [id number] 15 wks [id number] 16 wks [phone] 17 wks [id number] 18 wks [phone] 19 wks [phone] Non- Female: 0-4 us Gayla Barker APRN, CNP CHEMISTRY ORDERABLES Fi nal Result [facility] [address] [place] [address] documented in this encounter Visit Diagnoses Diagnosis Positive urine test- Primary documented in this encounter Additional Health Concerns Assessment Noted Time PHQ-9 Depression Total Score: 0 03/25/19 20 10:00 AM DELICATESSEN GOODS STOCK CLERK documented as of this encounter Care Teams Change Management Consultant Relationship Specialty Start Date End Date Gayla Barker APRN, CNP [address] [place] [address] PCP - General Advanced Practice Nurse 03/25/19 documented as of this encounter
--- OUTSIDE RECORDS SUMMARY | 2024-02-24 19:48 | XMS_ITS | Encounter Summary ---
Author Organization [employer] Care Team Providers Care Carpet Inspector Finished Name Role Phone Gayla Barker APRN, HARSHA [...] on file Legal Sex Female 10:27 AM COMBO WELDER Gender Identity Not on file Sexual [...] Total Score: 0 03/25/19 20 10:00 AM COMBO WELDER documented as of this encounter Care Teams Carpet Inspector Finished Relationship Specialty Start Date End Date Gayla Barker APRN, MENTAL HEALTH SOCIAL WORKER [address] [place] [address] PCP - General Advanced Practice Nurse 03/25/19 documented as of this encounter
--- OUTSIDE RECORDS SUMMARY | 2024-02-24 19:48 | XMS_ITS | Encounter Summary ---
Author Organization [facility] Address [address] [place] [address] Phone Care Team Providers Care Forest Ranger Technician Name Role Phone Gayla Barker APRN, SURVEILLANCE ANALYST Primary Care Provider Reason for Visit * Reason Comments Back Pain Encounter Details Date Type Department Care Team (Late st Contact Info) Description 05/19/2019 10:03 AM CDT - 05/19/2019 12:02 PM CDT Emergency [facility] [address] [place] [phone] Alton Valerio MD URI (upper respiratory infection) Discharge Disposition: Discharged to home or Selfcare [...] on file Legal Sex Female 10:27 AM BUTTON SPINDLER Gender Identity Not on file Sexual Orientation Not on file COVID-19 Exposure Response Date Recorded In the last month, have you been in contact with someone who was confirmed or suspected to have Coronavirus / COVID-19? No / Unsure 05/19/2019 9:55 AM CDT documented as of this encounter Last Filed Vital Signs Vital Sign Reading Time Taken Comments Blood Pressure 136/74 05/19/2019 11:25 AM CDT Pulse 113 05/19/2019 9:56 AM CDT Temperature 37 ??C (98.6 ??F) 05/19/2019 9:56 AM CDT Respiratory Rate 18 05/19/2019 9:56 AM CDT Oxygen Saturation 100% 05/19/2019 9:56 AM CDT Inhaled Oxygen Concentration - - Weight 72.6 kg (160 lb) 05/19/2019 9:56 AM CDT Height 160 cm (5' 3 ) 05/19/2019 9:56 AM CDT Body Mass Index 28.34 05/19/2019 9:56 AM CDT documented in this encounter Discharge Instructions * Attachments The following attachments cannot be sent through Care Everywhere. * URI, Viral, No Abx (Adult) (Swazi) documented in this encounter Medications at Time of Discharge hydroxychloroquin e (PLAQUENIL) 200 MG Tablet Take 1 Tab by mouth daily. 90 Tab 3 05/09/2019 albuterol 108 (90 Base) MCG/ACT Aerosol Solution take 2 Puffs by inhalation every 4 hours as needed for Cough (shortness of breath). 8.5 g 04/28/2019 05/23/19 20 ALPRAZolam (XANAX) 0.25 MG Tablet Take 1 Tab by mouth 3 times daily as needed for Anxiety. 30 Tab 05/09/2019 06/04/19 20 clomiPHENE (CLOMID) 50 MG Tablet Take 50 mg by mouth. 03/31/2019 06/05/19 20 folic acid (FOLVITE) 1 MG Tablet Take 1 mg by mouth. 04/01/2019 06/23/19 20 levETIRAcetam (KEPPRA) 500 MG Tablet [...] as of this encounter ED Notes * Becky Palmer RN - 05/19/2019 12:00 PM CDT Patient discharged.Pt left prior to receiving discharge paperwork. Pt discharged per ambulatory mode with self as responsible republican. * Becky Palmer RN - 05/19/2019 11:29 AM CDT Pt placed on NIBP monitor. * Becky Palmer RN - 05/19/2019 10:20 AM CDT See triage note for details. Pt reports she is worried she has this COVID and being . Pt encouraged to follow the protocol for social distancing once she is d/c today. * Alton Valerio MD - 05/19/2019 10:14 AM CDT Chief Complaint Patient presents with ??? Back Pain Carito Rausch is a 29 y.o. female who presents to the ED at the instruction of her picker / packer c/o left upper back pain, productive cough with yellow sputum, SOB, and episode of hemoptysis this morning. Her back pain worsens with deep breaths and cough. She reports recent fevers, but is currently afebrile. She is , P:0, approximately 5 weeks . There has been no recent vaginal bleeding or abdominal cramping. She denies any travel history or known ill contacts. She is on Plaquenil for Lupus. She was seen here 3 days ago at which time her beta-quant was 140. She had influenza swabobtained at that time which was negative. Influenza swab obtained today is also negative. Her obstet rician sent her here because he did not want her to go there out of COVID consideration. The history is provided by the patient. No trolley collector was used. Back Pain Associated symptoms: fever (recent; currently afebrile) Associated symptoms: no abdominal pain, no chest pain, no dysuria, no headaches, no numbness and noweakness No current facility-administered medications for this encounter. [...] Tablet Take 1 mg by mouth. ??? hydroxychloroquine (PLAQUENIL) 200 MG Tablet Take [...] file Gets together: Not on file Attends samaritan service: Not on file Active member of [...] History Narrative ??? Not on file BP 136/74 Pulse (!) 113 Temp 98.6 ??F (37 ??C) (Tympanic) Resp 18 Ht 5' 3 (1.6 m) Wt 160lb (72.6 kg) LMP 04/14/2019 SpO2 100% BMI 28.34 kg/m?? Review of Systems Constitutional: Positive for fever (recent; currently afebrile). Negative for chills. HENT: Negative for trouble swallowing. Eyes: Negative for visual disturbance. Respiratory: Positive for cough (productive cough with yellow sputum and 1 episode of hemoptysis) and shortness of breath. Cardiovascular: Negative for chest pain and palpitations. Gastrointestinal: Negative for abdominal pain, nausea and vomiting. Genitourinary: Negative for dysuria, frequency, urgency and vaginal bleeding. Musculoskeletal: Positive for back pain (upper back). Neurological: Negative for speech difficulty, weakness, numbness and headaches. All other systems reviewed and are negative. Physical Exam Constitutional: She is oriented to person, place, and time. She appears well- developed and well-nourished. No distress. Body mass index is 28.34 kg/m??. HENT: Head: Normocephalic and atraumatic. Mouth/Throat: Oropharynx is clear and moist. Face symmetric Eyes: Pupils are equal, round, and reactive to light. Conjunctivae and EOM are normal. Neck: Normal range of motion. Neck supple. Cardiovascular: Normal rate, regular rhythm, normal heart sounds and intact distal pulses. Exam reveals no gallop and no friction rub. No murmur heard. Pulmonary/Chest: Effort normal and breath sounds normal. No respiratory distress. She has no wheezes. She has no rales. Abdominal: Soft. Bowel sounds are normal. She exhibits no distension. There is no abdominal tenderness. There is no rebound and no guarding. Musculoskeletal: Normal range of motion. General: No tenderness, deformity or edema. Lymphadenopathy: She has no cervical adenopathy. Neurological: She is alert and oriented to person, place, and time. Skin: Skin is warm and dry. No rash noted. She is not diaphoretic. No erythema. No pallor. Psychiatric: She has a normal mood and affect. Her behavior is normal. Judgment and thought contentnormal. Nursing note and vitals reviewed. Procedures MDM Labs Reviewed HCG BETA SUBUNIT SERUM QUANT - Abnormal; Notable for the following components: Result Value HCG BETA SUBUNIT, QUANT 424.00 (*) All other components within normal limits Narrative: HCG Interpretive Reference Ranges Wks of : References Ranges 4 wks [id number] 5 wks [phone] 6 wks [id number] 7 wks [id number] 8 wks [id number] 9 wks [id number] 10 wks [id number] 14 wks [id number] 15 wks [id number] 16 wks [id number] 17 wks [id number] 18 wks [id number] 19 wks [id number] Non- Female: 0-4 EXTRA TUBES Narrative: The following orders were created for panel order Extra Tubes. Procedure Abnormality Status --------- ------ Blue Top Tube[[id number]] Final result Gold Top Tube[[id number]] Final result Lavender Top Tube[[id number]] Final result Please view results for these tests on the individual orders. POCT INFLUENZA A & B BLUE TOP TUBE GOLD TOP TUBE LAVENDER TOP TUBE XR CHEST SINGLE VIEW PORTABLE Final Result IMPRESSION: No evidence of an acute cardiopulmonary abnormality. HCG Beta Subunit Serum Quant Final Result Extra Tubes Final Result Reviewed: previous chart, nursing note and vitals Interpretation: labs and x-ray Clinical Impression 1. and infectious disease, first trimester 2. URI (upper respiratory infection) 10:10. At bedside for initial evaluation. 1145. The patient remained stable throughout their ED stay. My clinical impression was discussed with the patient/caregiver. Any labs and radiology results were reviewed. Questions were addressed as completely as possible given the information available at present. The therapeutic plan was discussed, instructions were given and the importance of primary care follow up was stressed and encouraged.The patient/caregiver voiced understanding of the plan, indications to return, and the need for follow up. New Medications: Discharge Medication List as of 05/19/2019 11:52 AM I have advised the patient to follow-up with: Gayla Barker, ASPHALT ROLLER OPERATOR, SURVEILLANCE ANALYST [address] [facility] [address] As needed Disposition: Discharge By signing my name below, I, Hattie Garcia, attest that this documentation has been prepared under the direction and in the presence of Dr. Valerio. Electronically Signed: Karlie Fermin. 05/19/19 5:46 PM I, Dr. Valerio, personally performed the services described in this documentation. All medical recordentries made by the scribe were at my direction and in my presence. I have reviewed the chart and discharge instructions and agree that the record reflects my personal performance and is accurate andcomplete. Dr. Valerio, 05/19/19 5:46 PM * Saadia Sutton RN - 05/19/2019 10:02 AM CDT Flu swab collected in triage. * Saadia Sutton RN - 05/19/2019 9:59 AM CDT Patient to triage with complaints of upper back pain, productive cough with yellow sputum, shortness of breath, and one episode of vomiting blood. Patient denies recent travel. Patient reports fevers, but patient is afebrile at this time. Patient reports being approximately 5 weeks with her second ; patient reports first ending in a stillborn at 6 months gestation. Patient denies vaginal bleeding and recent abdominal cramping. documented in this encounter Plan of Treatment Not on file documented as of this encounter Procedures Procedure Name Priority Date/Time Associated Diagnosis Comments XR CHEST SINGLE VIEW PORTABLE STAT 05/19/2019 11:01 AM CDT EXTRA TUBES STAT 05/19/2019 10:51 AM CDT GOLD TOP TUBE STAT 05/19/2019 10:51 AM CDT BLUE TOP TUBE STAT 05/19/2019 10:51 AM CDT LAVENDER TOP TUBE STAT 05/19/2019 10: 51 AM CDT HCG BETA SUBUNIT SERUM QUANT STAT 05/19/2019 10:51 AM CDT POCT INFLUENZA A & B STAT 05/19/2019 10:07 AM CDT documented in this encounter Results * XR CHEST SINGLE VIEW PORTABLE (05/19/2019 11:01 AM CDT) Anatomical Region Laterality Modality Chest N/A Digital Radiogra phy 05/19/2019 11:0 9 AM CDT Impressions 05/19/2019 11:12 AM CDT IMPRESSION: ??No evidence of an acute cardiopulmonary abnormality. Narrative 05/19/2019 11:12 AM CDT EXAM DESCRIPTION: ??XR CHEST SINGLE VIEW PORTABLE REASON FOR STUDY: ??Productive cough for 4 days. ??Hemoptysis for 1 day. ??History of tobacco use. TECHNIQUE: ??Frontal radiographic view of the chest acquired. COMPARISON: ??Chest radiograph from 04/28/2019. FINDINGS: ?? LUNGS/PLEURA: There is no evidence of airspace consolidation, pleural effusion, or pneumothorax. HEART/MEDIASTINUM: The heart size is normal. The mediastinal and hilar contours are normal. ?? HARDWARE/LINES/TUBES: None. BONES: There are no acute or aggressive appearing osseous abnormalities. THIS IS AN ELECTRONICALLY VERIFIED FINAL REPORT 05/19/2019 11:09 AM - Electronically signed by Raji Kraus M.D. AB: AB D: ??05/19/2019 11:09 AM T: ??05/19/2019 11:09 AM Report ID: [id number] Reading Location: ??[id number] Procedure Note Raji Kraus MD - 05/19/2019 EXAM DESCRIPTION: XR CHEST SINGLE VIEW PORTABLE REASON FOR STUDY: Productive cough for 4 days. Hemoptysis for 1 day. History of tobacco use. TECHNIQUE: Frontal radiographic view of the chest acquired. COMPARISON: Chest radiograph from 04/28/2019. FINDINGS: LUNGS/PLEURA: There is no evidence of airspace consolidation, pleural effusion, or pneumothorax. HEART/MEDIASTINUM: The heart size is normal. The mediastinal and hilar contours are normal. HARDWARE/LINES/TUBES: None. BONES: There are no acute or aggressive appearing osseous abnormalities. THIS IS AN ELECTRONICALLY VERIFIED FINAL REPORT 05/19/2019 11:09 AM - Electronically signed by Raji Kraus M.D. AB: AB Report ID: [id number] Reading Location: [id number] IMPRESSION: No evidence of an acute cardiopulmonary abnormality. us Alton Valerio MD IMG DIAGNOSTIC ORDERABLES F inal Result * Lavender Top Tube (05/19/2019 10:51 AM CDT) Blood specimen (specimen) Butterfly Puncture / Unknown 05/19/2019 10:51 AM CDT 05/19/2019 11:07 AM CDT us Alton Valerio MD HEMATOLOGY ORDERABLES Final Result Performing Organization Address City/[facility] Co de Phone Number [facility] [place] [address] * Gold Top Tube (05/19/2019 10:51 AM CDT) Blood specimen (specimen) Butterfly Puncture / Unknown 05/19/2019 10:51 AM CDT 05/19/2019 11:07 AM CDT Alton Valerio MD CHEMISTRY ORDERABLES Final Result Performing Organization Address [facility] Co de Phone Number [facility] [place] [address] * Blue Top Tube (05/19/2019 10:51 AM CDT) Blood specimen (specimen) Butterfly Puncture / Unknown 05/19/2019 10:51 AM CDT 05/19/2019 11:07 AM CDT us Alton Valerio MD HEMATOLOGY ORDERABLES Final Result Performing Organization Address City/[facility] Co de Phone Number [facility] [place] [address] * (ABNORMAL) HCG Beta Subunit Serum Quant (05/19/2019 10:51 AM CDT) HCG BETA SUBUNIT, QUANT 424.00(H) <=5.00 mIU/mL 05/19/2019 11:33 AM CDT [facility] Blood specimen (specimen) Butterfly Puncture / Unknown 05/19/2019 10:51 AM CDT 05/19/2019 11:07 AM CDT Narrative [facility] - 05/19/2019 11:33 AM CDT HCG Interpretive Reference Ranges Wks of : References Ranges 4 wks [phone] 5 wks [phone] 6 wks [phone] 7 wks [id number] 8 wks [id number] 9 wks [id number] 10 wks [id number] 14 wks [id number] 15 wks [id number] 16 wks [id number] 17 wks [id number] 18 wks [id number] 19 wks [id number] Non- Female: 0-4 us Alton Valerio MD CHEMISTRY ORDERABLES Final Result [facility] [place] [address] * POCT Influenza A & B (05/19/2019 10:07 AM CDT) POC INFLU A Presumptive negative Group A POC INFLU B Presumptive negative Group B POC INFLUENZA CONTROL Power System Dispatcher Pass 05/19/2019 10:0 7 AM CDT us Alton Valerio MD POINT OF CARE TESTING (MANU AL) Final Result documented in this encounter Visit Diagnoses Diagnosis and infectious disease, first trimester- Primary URI (upper respiratory infection) Acute upper respiratory infections of unspecified site documented in this encounter Additional Health Concerns Assessment Noted Time PHQ-9 Depression Total Score: 0 03/25/19 10:00 AM BUTTON SPINDLER documented as of this encounter Care Teams Forest Ranger Technician Relationship Specialty Start Date End Date Gayla Barker, DIRECTOR LOAN, SURVEILLANCE ANALYST [address] [place] [address] PCP - General Advanced Practice Nurse 03/25/19 documented as of this encounter
--- OUTSIDE RECORDS SUMMARY | 2024-02-24 19:48 | XMS_ITS | Encounter Summary ---
Author Organization [facility] Address [address] [place] [address] Phone Care Team Providers Care Assistant Sales Center Manager Name Role Phone Gayla Barker APRN, CNP Primary Care Provider Reason for Visit * Reason Comments Hand Pain right//jammed hand 3 days ago Rash buttocks Gland Swelling Encounter Details Date Type Department Care Team (Late st Contact Info) Description 07/04/2019 5:15 PM CDT Office Visit [facility] [address] [place] [address] Gayla Barker APRN, CNP [address] [place] [address] Hand injury, right, initial encounter (Primary Dx); Dizziness; Rash and nonspecific skin eruption; Enlarged lymph node Discharge Disposition: Discharged to home or Selfcare [...] file 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 No / Unsure 07/04/2019 4:44 PM CDT documented as of this encounter Last Filed Vital Signs Vital Sign Reading Time Taken Comments Blood Pressure 110/70 07/04/2019 5:16 PM CDT Pulse 70 07/04/2019 5:16 PM CDT Temperature 36.6 ??C (97.8 ??F) 07/04/2019 5:16 PM CD T Respiratory Rate 20 07/04/2019 5:16 PM CDT Oxygen Saturation 98% 07/04/2019 5:16 PM CDT Inhaled Oxygen Concentration - - Weight 75.7 kg (166 lb 12.8 oz) 07/04/2019 5:16 PM CDT Height 160 cm (5' 3 ) 07/04/2019 5:16 PM CDT Body Mass Index 29.55 07/04/2019 5:16 PM CDT documented in this encounter Patient Instructions * Patient Instructions* Gayla Barker APN, CNP - 07/04/2019 5:15 PM CDT Hydrocortisone for rash Xray for hand Ice to hand and elevation Ibuprofen as needed documented in this encounter Progress Notes * Rima Junior - 07/04/2019 5:15 PM CDT Carito Ivory Shalom, 29 y.o., female is here for Hand Pain (right//jammed hand 3 days ago); Rash (buttocks); and Gland Swelling Medication Refills: Patient reports/denies need for medication refills. Orders Pended: no Requested Prescriptions No prescriptions requested or ordered in this encounter Home Medications Medication Sig Start Date End Date Taking? Authorizing Provider albuterol 108 (90 Base) MCG/ACT Aerosol Solution take 2 Puffs by inhalation every 4 hours as neededfor Cough (shortness of breath). 06/18/19 Gayla Barker APN, TRANSPLANTER ALPRAZolam (XANAX) 0.25 MG Tablet Take 1 Tab by mouth 3 times daily as needed for Anxiety. 06/18/19 Yes Gayla Barker APN, CNP hydroxychloroquine (PLAQUENIL) 200 MG Tablet Take 1 Tab by mouth daily. 05/09/19 Yes Gayla Barker APN, CNP predniSONE (DELTASONE) 10 MG Tablet Take 1 Tab by mouth daily. 05/09/19 Yes Gayla Barker APN, CNP predniSONE (DELTASONE) 5 MG Tablet Take 1 Tab by mouth daily. 05/09/19 Yes Gayla Barker APN, CNP There are no [...] today:tdap * Gayla Barker APN, CNP - 07/04/2019 5:15 PM CDT Images from the original note were not included. Subjective: Patient presents with complaints of right hand swelling and pain. She jammed her hand 3 days ago and is continue to swell. She had hand surgery where she severed the artery and nerve in her right wrist in November and has minimal feeling in that hand. She has been using ice without much relief. She also has a rash on her left buttock mainly but also the right that she was told was shingles and given a round of Valtrex without any relief. She states the rash does not itch or hurt. She also has a lymph node in her left clavicular area that is slightly enlarged. She states that that comes and goes has been there for about 2 or 3 days. Review of Systems Constitutional: Negative for fever. HENT: Negative. Respiratory: Negative for shortness of breath. Cardiovascular: Negative for chest pain and palpitations. Gastrointestinal: Negative for constipation, diarrhea, nausea and vomiting. Genitourinary: Negative. Musculoskeletal: Positive for joint swelling (right hand). Right hand swelling. Had median nerve surgery in November. Has minimal feeling in hand. She has usedice. Skin: Positive for rash. Neurological: Negative for dizziness and headaches. Psychiatric/Behavioral: Negative. Objective: Physical Exam Vitals signs and nursing note reviewed. Constitutional: Appearance: She is normal weight. HENT: Right Ear: Ear canal normal. Tympanic membrane is bulging. Left Ear: Ear canal normal. Tympanic membrane is bulging. Neck: Musculoskeletal: Normal range of motion. Vascular: No carotid bruit. Comments: Left subclavicular lymph node enlargement. Cardiovascular: Rate and Rhythm: Normal rate and regular rhythm. Pulses: Normal pulses. Heart sounds: Normal heart sounds. Pulmonary: Effort: Pulmonary effort is normal. Breath sounds: Normal breath sounds. Abdominal: General: Bowel sounds are normal. Palpations: Abdomen is soft. Musculoskeletal: Right hand: She exhibits decreased range of motion, tenderness and swelling. She exhibits normal capillary refill. Decreased sensation noted. Skin: General: Skin is warm and dry. Findings: Rash present. Rash is pustular. Neurological: Mental Status: She is alert and oriented to person, place, and time. Psychiatric: Mood and Affect: Mood normal. BP 110/70 Pulse 70 Temp 97.8 ??F (36.6 ??C) (Temporal) Resp 20 Ht 5' 3 (1.6 m) Wt 166 lb12.8 oz (75.7 kg) LMP 06/19/2019 (Approximate) SpO2 98% BMI 29.55 kg/m?? Assessment and Plan See Diagnoses, Orders, Follow-up, and Instructions Encounter Diagnoses Name Primary? Hand injury, right, initial encounter Yes ??? Dizziness ??? Rash and nonspecific skin eruption ??? Enlarged lymph node Hydrocortisone for rash Xray for hand Ice to hand and elevation Ibuprofen as needed Documentation for this visit on 07/04/2019 was completed using a template. I have seen and examinedthe patient. Everything documented was personally performed at this visit with the necessary additions, deletions and changes made as appropriate. documented in this encounter Plan of Treatment Not on file documented as of this encounter Procedures Procedure Name Priority Date/Time Associated Diagnosis Comments XR HAND 3 OR MORE VIEWS RIGHT Stat with Interpretation 07/04/2019 6:03 PM CDT Hand injury, right, initial encounter XR WRIST 3 OR MORE VIEWS RIGHT Stat with Interpretation 07/04/2019 6:03 PM CDT Hand injury, right, initial encounter documented in this encounter Results * XR HAND 3 OR MORE VIEWS RIGHT (07/04/2019 6:03 PM CDT) Anatomical Region Laterality Modality UPPER EXTREMITY, hand Right Digital Ra diography 07/04/2019 6:16 PM CDT Impressions 07/04/2019 6:18 PM CDT IMPRESSION: ??No acute osseous abnormality. Narrative 07/04/2019 6:18 PM CDT EXAM DESCRIPTION: ??XR HAND 3 OR MORE VIEWS RIGHT REASON FOR STUDY: ??Unspecified injury of right wrist, hand and finger(s) Patient jammed 2nd and 3rd finger 3 days ago, pain and swelling, history of lupus TECHNIQUE: ??Frontal, lateral, and oblique radiographic views acquired of the right hand. COMPARISON: ??None available FINDINGS: ??BONES/JOINTS: No acute fracture, malalignment or osseous abnormalities.Joint spaces are maintained. SOFT TISSUES: Unremarkable. OTHER: No other significant finding. THIS IS AN ELECTRONICALLY VERIFIED FINAL REPORT 07/04/2019 6:16 PM - Electronically signed by Leti uJne M.D. JS: JAMES D: ??07/04/2019 6:16 PM T: ??07/04/2019 6:16 PM Report ID: [id number] Reading Location: ??[id number] Procedure Note Leti June MD - 07/04/2019 EXAM DESCRIPTION: XR HAND 3 OR MORE VIEWS RIGHT REASON FOR STUDY: Unspecified injury of right wrist, hand and finger(s) Patient jammed 2nd and 3rd finger 3 days ago, pain and swelling, history of lupus TECHNIQUE: Frontal, lateral, and oblique radiographic views acquired of the right hand. COMPARISON: None available FINDINGS: BONES/JOINTS: No acute fracture, malalignment or osseous abnormalities.Joint spaces are maintained. SOFT TISSUES: Unremarkable. OTHER: No other significant finding. THIS IS AN ELECTRONICALLY VERIFIED FINAL REPORT 07/04/2019 6:16 PM - Electronically signed by Leti RAMIREZ: JAMES Report ID: [id number] Reading Location: [id number] IMPRESSION: No acute osseous abnormality. Gayla Barker APRN, HARSHA IMG DIAGNOSTIC ORDERABL ES Final Result * XR WRIST 3 OR MORE VIEWS RIGHT (07/04/2019 6:03 PM CDT) Anatomical Region Laterality Modality UPPER EXTREMITY, wrist Right Digital R adiography 07/04/2019 6:13 PM CDT Impressions 07/04/2019 6:16 PM CDT IMPRESSION: ??No acute osseous abnormality. Mild soft tissue swelling. Narrative 07/04/2019 6:16 PM CDT EXAM DESCRIPTION: ??XR WRIST 3 OR MORE VIEWS RIGHT REASON FOR STUDY: ??Unspecified injury of right wrist, hand and finger(s) Pain/swelling for 3 days, history of lupus, to wrist surgeries November 2018, no history of injury TECHNIQUE: ??Frontal, lateral, and oblique radiographic views acquired of the right wrist. COMPARISON: ??None available FINDINGS: ??BONES/JOINTS: No acute fracture, malalignment or osseous abnormalities.Joint spaces are maintained. SOFT TISSUES: Mild soft tissue prominence at the anterior wrist. OTHER: No other significant finding. THIS IS AN ELECTRONICALLY VERIFIED FINAL REPORT 07/04/2019 6:13 PM - Electronically signed by Leti RAMIREZ: JAMES D: ??07/04/2019 6:13 PM T: ??07/04/2019 6:13 PM Report ID: [id number] Reading Location: ??[id number] Procedure Note Leti June MD - 07/04/2019 EXAM DESCRIPTION: XR WRIST 3 OR MORE VIEWS RIGHT REASON FOR STUDY: Unspecified injury of right wrist, hand and finger(s) Pain/swelling for 3 days, history of lupus, to wrist surgeries November 2018, no history of injury TECHNIQUE: Frontal, lateral, and oblique radiographic views acquired of the right wrist. COMPARISON: None available FINDINGS: BONES/JOINTS: No acute fracture, malalignment or osseous abnormalities.Joint spaces are maintained. SOFT TISSUES: Mild soft tissue prominence at the anterior wrist. OTHER: No other significant finding. THIS IS AN ELECTRONICALLY VERIFIED FINAL REPORT 07/04/2019 6:13 PM - Electronically signed by Leti June M.D. JS: JAMES Report ID: [id number] Reading Location: [id number] IMPRESSION: No acute osseous abnormality. Mild soft tissue swelling. 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
--- OUTSIDE RECORDS SUMMARY | 2024-02-24 19:48 | XMS_ITS | Encounter Summary ---
Author Organization [facility] Address [address] [place] [address] Phone Care Team Providers Care Cryptographic Technician Name Role Phone Gayla Barker APRN, CNP Primary Care Provider Ct[facility] Unavailable Marianela vailable Reason for Visit * Reason Comments Anxiety f/u talk about meds Encounter Details Date Type Department Care Team (Late st Contact Info) Description 07/11/2019 2:30 PM CDT Telemedicine [facility] [address] [place] [address] Gayla Barker APRN, WIRE FRAME MAKER [address] [place] [address] Anxiety (Primary Dx) Social History [...] Legal Sex Female 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 No / Unsure 10/03/2019 9:34 AM CDT documented as of this encounter Patient Instructions * Patient Instructions* Gayla Barker APN, CNP - 07/11/2019 2:30 PM CDT Start effexor Consider propranolol as needed Will consider weaning xanax after effexor therapeutic Referral to behavioral health Note from insulation applicator: Joy from Dr. Tilley-rheumotology office calling and reporting that they have attempted to reach patient 3 times. All times have been unsuccessful. Patient was going to have to be self pay per Joy. documented in this encounter Progress Notes * Vivi Junior - 07/11/2019 2:30 PM CDT Carito Rausch is on telephone visit for Anxiety (f/u) . Medications and allergies reconciled with Carito Rausch. * Gayla Barker APN, CNP - 07/11/2019 2:30 PM CDT Subjective: Patient was assessed via telephone for a duration of 15 minutes.?? Patient verbally consented for this service to be performed and billed. Patient presents for telephone encounter to discuss worsening anxiety. She states that she was in the emergency room and they give her some Ativan and she states that worked well and she feels like her Xanax isn't working as well and she feels like she needs something more longer lasting. We discussed the addictive properties of Xanax and Ativan and and that she would be better if we can get her on something non addictive that would last longer. She states that she was also using her inhaler every 1-2 hours and they told her to throw it away that less she was wheezing she did need to use the inhaler. Review of Systems Constitutional: Negative for fever. HENT: Negative. Respiratory: Negative for shortness of breath. Cardiovascular: Negative for chest pain and palpitations. Gastrointestinal: Negative for constipation, diarrhea, nausea and vomiting. Genitourinary: Negative. Musculoskeletal: Positive for arthralgias. Neurological: Negative for dizziness and headaches. Psychiatric/Behavioral: Positive for dysphoric mood. The patient is nervous/anxious. Objective: Physical Exam Nursing note reviewed. Neurological: Mental Status: She is alert and oriented to person, place, and time. Psychiatric: Mood and Affect: Mood normal. Telephone encounter. Physical exam omitted. Assessment and Plan See Diagnoses, Orders, Follow-up, and Instructions Encounter Diagnosis Name Primary? Anxiety Yes Start effexor Consider propranolol as needed Will consider weaning xanax after effexor therapeutic Referral to behavioral health documented in this encounter Miscellaneous Notes * Addendum Note - Dimple Junior RMA - 07/11/2019 2:30 PM CDTAddended by: VIVI JUNIOR on: 10/10/2019 08:33 AM Modules accepted: Orders documented in this [...] 0 03/25/19 20 10:00 AM DIRECTOR OF STUDENT LIFE documented as of this encounter Care Teams Cryptographic Technician Relationship Specialty Start Date End Date Gayla Barker, ORNAMENTAL IRON ERECTOR, WIRE FRAME MAKER [address] [place] [address] PCP - General Advanced Practice Nurse 03/25/19 Ct[facility] [place] Digital MEKHI 09/03/19 documented as of this encounter
--- OUTSIDE RECORDS SUMMARY | 2024-02-24 19:48 | XMS_ITS | Encounter Summary ---
Author Organization [facility] Address [address] 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
--- OUTSIDE RECORDS SUMMARY | 2024-02-24 19:48 | XMS_ITS | Encounter Summary ---
Author Organization [facility] Address [address] 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 No / Unsure 05/27/2019 10:19 AM CDT documented as of this encounter Progress Notes * Najma Simpson RMA - 05/27/2019 11:30 AM CDT Carito presents for lab draw per order of Gayla Barker APN, CNP dated 05/27/19. Specimen collected from right antecubital without incident. sah documented in this encounter Plan of Treatment Not on file documented as of this encounter Procedures Procedure Name Priority Date/Time Associated Diagnosis Comments HCG BETA SUBUNIT SERUM QUANT Routine 05/27/2019 11:13 AM CDT Threatened miscarriage documented in this encounter Results * (ABNORMAL) HCG BETA SUBUNIT SERUM QUANT (05/27/2019 11:13 AM CDT) HCG BETA SUBUNIT, QUANT 68.92(H) <=5.00 mIU/mL 05/27/2019 5:03 PM CDT [facility] Blood specimen (specimen) Venipuncture / Unknown 05/27/2019 11:13 AM CDT 05/27/2019 11:13 AM CDT Narrative [facility] - 05/27/2019 5:03 PM CDT HCG Interpretive Reference Ranges Wks of : References Ranges 4 wks [phone] wks [phone] wks [phone] 7 wks [phone] 8 wks [id number] 9 wks [id number] 10 wks [id number] 14 wks [id number] 15 wks [id number] 16 wks [phone] 17 wks [phone] 18 wks [phone] 19 wks [phone] Non- Female: 0-4 us Gayla Barker APRN, CNP CHEMISTRY ORDERABLES Fi nal Result [facility] [address] [place] [address] documented in this encounter Visit Diagnoses Diagnosis Threatened miscarriage Threatened , unspecified as to episode of care documented in this encounter Additional Health Concerns Assessment Noted Time PHQ-9 Depression Total Score: 0 03/25/19 10:00 AM SUPERVISOR PRESS ROOM documented as of this encounter Care Teams Collar Band Creaser Relationship Specialty Start Date End Date Gayla Barker, DENTAL HYGIENIST, BUSHER HELPER [address] [place] [address] PCP - General Advanced Practice Nurse 03/25/19 documented as of this encounter
--- OUTSIDE RECORDS SUMMARY | 2024-02-24 19:48 | XMS_ITS | Encounter Summary ---
Author Organization [facility] 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
--- OUTSIDE RECORDS SUMMARY | 2024-02-24 19:48 | XMS_ITS | Encounter Summary ---
Author Organization [facility] Address [address] [place] [address] Phone Care Team Providers Care Comfort Advisor Name Role Phone Gayla Barker APRN, CATALOGUE AND SPECIAL PRODUCTS MANAGER Primary Care Provider Encounter Details Date Type Department Care Team (Latest Contact Info) Description 07/04/2019 5:55 PM CDT Ancillary Procedure [facility] [place] [address] [place] [address] Discharge Disposition: Discharged to home or Selfcare [...] on file Legal Sex Female 10:27 AM BIOINFORMATICS COMPUTER SCIENTIST Gender Identity Not on file Sexual Orientation [...] Name Priority Date/Time Associated Diagnosis Comments XR WRIST 3 OR MORE VIEWS RIGHT Stat with Interpretation 07/04/2019 6:03 PM CDT Hand injury, right, initial encounter documented in this encounter Results * XR WRIST 3 OR MORE VIEWS [...] signed by Leti June M.D. JS: JAMES D: ??07/04/2019 6:13 PM T: ??07/04/2019 6:13 PM Report ID: [id number] Reading Location: ??[id number] Procedure Note Leti June MD - 07/04/2019 [...] Leti June M.D. JS: JAMES Report ID: [id number] Reading Location: [id number] IMPRESSION: No acute osseous abnormality. Mild soft tissue swelling. us Gayla Barker APRN, CNP IMG DIAGNOSTIC ORDERABL ES Final Result documented in this encounter Visit Diagnoses Not on filedocumented in this encounter Additional Health Concerns Assessment Noted Time PHQ-9 Depression Total Score: 0 03/25/19 20 10:00 AM BIOINFORMATICS COMPUTER SCIENTIST documented as of this encounter Care Teams Comfort Advisor Relationship Specialty Start Date End Date Gayla Barker APRN, HARSHA [address] [place] [address] PCP - General Advanced Practice Nurse 03/25/19 documented as of this encounter
--- OUTSIDE RECORDS SUMMARY | 2024-02-24 19:48 | XMS_ITS | Encounter Summary ---
Author Organization [facility] Address [address] [place] [address] Phone Care Team Providers Care Social Problems Specialist Name Role Phone Gayla Barker APRN, COUNTY PROGRAM TECHNICIAN Primary Care Provider Reason for Visit * Reason Onset Date Comments Problem 05/27/2019 Awaiting misca rriage results- not sure how far along in that she is, states the doctors are unsure as well- 11 days of ongoing symptoms, waiting for results Results 05/27/2019 Encounter Details Date Type Department Care Team (Late st Contact Info) Description 05/27/2019 Nurse Triage [facility] 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 No / Unsure 05/27/2019 10:19 AM CDT documented as of this encounter Miscellaneous Notes * Telephone Encounter - Sherry Anne RN - 05/27/2019 6:23 PM CDT SITUATION (caller perception/concerns): Results. BACKGROUND (events leading up to call): Had office visit today for possible miscarriage and asking for test results to confirm. EHR reviewed and these results noted: Result Notes for HCG BETA SUBUNIT SERUM QUANT Notes recorded by Gayla Barker, LOGISTICS PLANNER, COUNTY PROGRAM TECHNICIAN on 05/27/2019 at 5:32 PM CDT HCG is 68.92. ??I would say that it is probably safe to say that she has miscarried. ??Continue with plan of care we discussed in office. ASSESSMENT: Declined. RECOMMENDATION: Results provided per EHR note and patient had no further questions. See care advice and disposition for guideline. [...] Total Score: 0 03/25/19 10:00 AM SUPERINTENDENT RECREATION documented as of this encounter Care Teams Social Problems Specialist Relationship Specialty Start Date End Date Gayla Barker, STICKER HAND, COUNTY PROGRAM TECHNICIAN [address] [place] [address] PCP - General Advanced Practice Nurse 03/25/19 documented as of this encounter
--- OUTSIDE RECORDS SUMMARY | 2024-02-24 19:48 | XMS_ITS | Encounter Summary ---
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 No / Unsure 06/18/2019 4:48 PM CDT documented as of this encounter Plan of Treatment Not on file documented as of this encounter Visit Diagnoses Not on filedocumented in this encounter Additional Health Concerns Assessment Noted Time PHQ-9 Depression Total Score: 0 03/25/19 20 10:00 AM MARKET RELATIONSHIP MANAGER documented as of this encounter Care Teams Music Worker Relationship Specialty Start Date End Date Gayla Barker APRN, PIPE ORGAN TECHNICIAN [address] [place] [address] PCP - General Advanced Practice Nurse 03/25/19 documented as of this encounter
--- OUTSIDE RECORDS SUMMARY | 2024-02-24 19:48 | XMS_ITS | Encounter Summary ---
Author Organization [facility] Address [address] 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 JS: JAMES Report ID: [id number] Reading Location: [id number] IMPRESSION: No acute osseous abnormality. us Gayla Barker APRN, CNP IMAnamika DIAGNOSTIC ORDERABL ES Final Result documented in this encounter Visit Diagnoses Not on filedocumented in this encounter Additional Health Concerns Assessment Noted Time PHQ-9 Depression Total Score: 0 03/25/19 20 10:00 AM RAILROAD WORKER documented as of this encounter Care Teams Clinical Rn Relationship Specialty Start Date End Date Gayla Barker APRN, HARSHA [address] [place] [address] PCP - General Advanced Practice Nurse 03/25/19 documented as of this encounter
--- OUTSIDE RECORDS SUMMARY | 2024-02-24 19:48 | XMS_ITS | Encounter Summary ---
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
--- OUTSIDE RECORDS SUMMARY | 2024-02-24 19:48 | XMS_ITS | Encounter Summary ---
Author Organization [facility] Address [address] [place] [address] Phone Care Team Providers Care Research Development Manager Name Role Phone Gayla Barker APRN, WIRE STEWARD Primary Care Provider Reason for Visit * Reason Onset Date Comments Results 04/29/2019 Encounter Details Date Type Department Care Team (Late st Contact Info) Description 04/29/2019 Telephone [facility] - [facility] [place] [address] [place] [address] Gayla Barker, ANNIE, WIRE STEWARD [address] [place] [address] Results Social History Tobacco Use [...] on file Legal Sex Female 10:27 AM GUNCOTTON PACKER Gender Identity Not on file Sexual Orientation Not on file documented as of this encounter Miscellaneous Notes * Telephone Encounter - Leti Gusman RN - 04/29/2019 10:28 AM GUNCOTTON PACKER Phoned patient with x-ray results. Patient aware and verbalized understanding. No questions for justowriter operator. OTTON PACKER * Telephone Encounter - Leti Gusman RN - 04/29/2019 10:27 AM GUNCOTTON PACKER ----- Message from Gayla Barker APN, CNP sent at 04/29/2019 10:03 AM GUNCOTTON PACKER ----- Cervical vertebral body heights and anterior posterior alignment is maintained. OTTON PACKER documented in this encounter Plan of Treatment Not on file documented as of this encounter Visit Diagnoses Not on filedocumented in this encounter Additional Health Concerns Assessment Noted Time PHQ-9 Depression Total Score: 0 03/25/19 10:00 AM GUNCOTTON PACKER documented as of this encounter Care Teams Research Development Manager Relationship Specialty Start Date End Date Gayla Barker APRN, CNP [address] [place] [address] PCP - General Advanced Practice Nurse 03/25/19 documented as of this encounter
--- OUTSIDE RECORDS SUMMARY | 2024-02-24 19:48 | XMS_ITS | Encounter Summary ---
Author Organization [facility] Address [address] [place] [address] Phone Care Team Providers Care Dike Supervisor Name Role Phone Gayla Barker APRN, JACQUARD LACE WEAVER Primary Care Provider Reason for Visit * Reason Onset Date Comments Shortness of Breath 05/31/2019 screen done. able to speak Cough 05/31/2019 Fever 05/31/2019 Encounter Details Date Type Department Care Team (Late st Contact Info) Description 05/31/2019 Nurse Triage [facility] [address] [place], [place] [id number] Gayla Barker APRN, JACQUARD LACE WEAVER [address] [place] [address] Shortness of Breath (screen done. able to speak); Cough; Fever Social History Tobacco Use Types Packs/Day Years [...] on file Legal Sex Female 10:27 AM NECK SKEWER Gender Identity Not on file Sexual Orientation Not on file COVID-19 Exposure Response Date Recorded In the last month, have you been in contact with someone who was confirmed or suspected to have Coronavirus / COVID-19? No / Unsure 05/31/2019 9:37 AM CDT documented as of this encounter Miscellaneous Notes * Telephone Encounter - Wilma Dumont RN - 05/31/2019 9:40 AM CDT SITUATION (caller perception/concerns): Chest x ray results. BACKGROUND (events leading up to call): Chest x ray done yesterday. Ad[facility] to [facility]. Covid 19 and influenza tests was negative. History (chance of ): Systemic Lupus ASSESSMENT: Onset: Illness sx for 2 weeks. Symptoms: Diarrhea, cough, chest pain with cough. No sob at this time. States she is improving slowly. RECOMMENDATION: Gayla Barker had received chest xray results and noted that they were normal. Informed Carito of this. States understanding. See care advice and disposition for guideline. [...] Depression Total Score: 0 03/25/19 10:00 AM NECK SKEWER documented as of this encounter Care Teams Dike Supervisor Relationship Specialty Start Date End Date Gayla Barker, SLUDGE CONTROL ATTENDANT, JACQUARD LACE WEAVER [address] [place] [address] PCP - General Advanced Practice Nurse 03/25/19 documented as of this encounter
--- OUTSIDE RECORDS SUMMARY | 2024-02-24 19:48 | XMS_ITS | Encounter Summary ---
Author Organization [facility] Address 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 Verbalized understanding. BENDING MACHINE OPERATOR * Telephone Encounter - Gayla Barker APN, CNP - 04/30/2019 2:52 PM PIPE BENDING MACHINE OPERATOR Chest x-ray should be good for her TB and I will sign her papers. 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 Patient states she had a chest xray done 2 days ago and is asking if that would be ok to use. Please advise. Patient states she has lupus and doesn't think she's able to have vaccines. Per chart review, patient received Tdap last year. Notified patient of this. Advised patient to contact previous schools for vaccination records for the MMR. Patient states she will do this and is asking if PCP can sign herform for the school if she drops it off today. Please advise. BENDING MACHINE OPERATOR documented in this encounter Plan of Treatment Not on file documented as of this encounter Visit Diagnoses Not on filedocumented in this encounter Additional Health Concerns Assessment Noted Time PHQ-9 Depression Total Score: 0 03/25/19 20 10:00 AM PIPE BENDING MACHINE OPERATOR documented as of this encounter Care Teams Supervisor Refining Relationship Specialty Start Date End Date Gayla Barker APRN, CNP [address] [place] [address] PCP - General Advanced Practice Nurse 03/25/19 documented as of this encounter
--- OUTSIDE RECORDS SUMMARY | 2024-02-24 19:48 | XMS_ITS | Encounter Summary ---
Author Organization [facility] Address [address] 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 No / Unsure 07/07/2019 11:58 AM CDT documented as of this encounter Miscellaneous Notes * Telephone Encounter - Remedios Stevenson RN - 07/08/2019 3:57 PM CDT ED call back completed. documented in this encounter Plan of Treatment Not on file documented as of this encounter Visit Diagnoses Not on filedocumented in this encounter Additional Health Concerns Assessment Noted Time PHQ-9 Depression Total Score: 0 03/25/19 10:00 AM STRUCTURAL ENGINEER documented as of this encounter Care Teams Lacquer Coater Relationship Specialty Start Date End Date Gayla Barker, TRANSIT VEHICLE INSPECTOR, WEBBING SEAMER POUND NET [address] [place] [address] PCP - General Advanced Practice Nurse 03/25/19 documented as of this encounter
--- OUTSIDE RECORDS SUMMARY | 2024-02-24 19:48 | XMS_ITS | Encounter Summary ---
Author Organization [facility] Address [address] 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 No / Unsure 06/25/2019 8:49 AM CDT documented as of this encounter Miscellaneous Notes * Telephone Encounter - Adina Flores RN - 06/26/2019 1:09 PM CDT Called patient to inform results of MRI. Patient verbalized understanding. * Telephone Encounter - Adina Flores RN - 06/26/2019 1:08 PM CDT ----- Message from CARIDAD Arango sent at 06/26/2019 11:37 AM CDT ----- Please call patient to let them know that results of brain MRI shows- No acute intracranial abnormality is identified. documented in this encounter Plan of Treatment Not on file documented as of this encounter Visit Diagnoses Not on filedocumented in this encounter Additional Health Concerns Assessment Noted Time PHQ-9 Depression Total Score: 0 03/25/19 10:00 AM RAILROAD CAR LOADER documented as of this encounter Care Teams Dials Inspector Relationship Specialty Start Date End Date Gayla Barker, DESIGN TECHNOLOGY PROFESSOR, FIELD EVIDENCE TECHNICIAN [address] [place] [address] PCP - General Advanced Practice Nurse 03/25/19 documented as of this encounter
--- OUTSIDE RECORDS SUMMARY | 2024-02-24 19:48 | XMS_ITS | Encounter Summary ---
Author Organization [facility] Address [address] [facility] [place] [address] Phone Care Team Providers Care Medical Technologist Chemistry Name Role Phone Gayla Barker APRN, VALET ATTENDANT Primary Care Provider Reason for Visit * Reason Comments Diarrhea Encounter Details Date Type Department Care Team ([facility] Contact Info) Description 07/13/2019 8:02 AM CDT - 07/13/2019 8:53 AM CDT Emergency [facility] Emergency [address] [place] [address] Carolina Delarosa MD [address] [address] Danny Woo MD [address] [place] [address] Cough Discharge Disposition: Discharged to home or Selfcare [...] on file Legal Sex Female 10:27 AM SADDLE CUTTER Gender Identity Not on file Sexual Orientation Not on file COVID-19 Exposure Response Date Recorded In the last month, have you been in contact with someone who was confirmed or suspected to have Coronavirus / COVID-19? No / Unsure 07/13/2019 7:56 AM CDT documented as of this encounter Last Filed Vital Signs Vital Sign Reading Time Taken Comments Blood Pressure 134/87 07/13/2019 7:57 AM CDT Pulse 92 07/13/2019 7:57 AM CDT Temperature 35.9 ??C (96.7 ??F) 07/13/2019 7:56 AM CD T Respiratory Rate 21 07/13/2019 7:57 AM CDT Oxygen Saturation 100% 07/13/2019 7:57 AM CDT Inhaled Oxygen Concentration - - Weight 70.3 kg (155 lb) 07/13/2019 7:57 AM CDT Height 160 cm (5' 3 ) 07/13/2019 7:57 AM CDT Body Mass Index 27.46 07/13/2019 7:57 AM CDT documented in this encounter Discharge Instructions * Discharge Instructions* Danny Woo - 07/13/2019 8:40 AM CDT CONTINUE ALL CURRENT MEDICATION. MOST IMPORTANT IS TO MAKE APPOINTMENT CLOTH COVERED HELMET PULLER FOR DEFINITIVE EVALUATION ABDOMINAL PAIN VOMITING AND DIARRHEA. KEEP CLOSE CONTACT WITH PRIMARY PHYSICIAN TO MANAGE ANXIETY AND OTHER HEALTH CONCERNS. DO NOT LET YOUR HEALTH CONDITION PARALYZED YOU. LIVE LIFE AND ENJOY. YOU ARE ONLY 29 YEARS OLD. documented in this encounter Medications at Time [...] daily as needed for Anxiety. 30 Tab 07/09/2019 0 ergocalciferol (VITAMIN D) 82715 UNIT Capsule TAKE 1 CAPSULE BY MOUTH ONE TIME PER WEEK 06/21/2019 0 escitalopram (LEXAPRO) 10 MG Tablet Take 1 Tab by mouth daily. 90 Tab 07/11/2019 0 ketorolac (TORADOL) 10 MG Tablet Take [...] ED Notes * Tran Quiñonez RN - 07/13/2019 8:48 AM CDT Patient discharged. Discharge instructions and patient educational material reviewed with patient; questions and concerns addressed; patient verbalizes understanding, using teach back. Patient was given 0 prescriptions. Patient discharged per ambulatory mode with a steady gait to the exit. PT declined wheelchair. Respirations even and non-labored. No signs of distress noted. * Tran Quiñonez RN - 07/13/2019 8:[address] Woo at bedside assessing PT. * Danny Woo - 07/13/2019 8:03 AM CDT Images from the original note were not included. Chief Complaint Patient presents with ??? Diarrhea Carito Rausch is a 29 y.o. female TO THE EMERGENCY DEPARTMENT FROM [facility] EM[facility]ENCY DE[facility]MENT WITH COMPLAINT OF NAUSEA VOMITING DIARRHEA. MULTIPLE OTHER COMPLAINTS. PATIENT HAS A HISTORY OF LUPUS FIBROMYALGIA AND ANXIETY. MULTIPLE ER VISITS TO MULTIPLE DIFFERENT ERS IN [facility] FOR COMPLAINTS OVER LAST 2-3 YEARS. SEE EXTENSIVE RADIOLOGY STUDIES AND LABS. PATIENT HAS A STOOL SAMPLE IN LAB ORDERS TO BE DONE OUTPATIENT. WILL HAVE THOSE DONE OUTPATIENT PRIOR ARRANGED. NO OTHER ACUTE COMPLAINTS. MAINLY NEEDS TO FOLLOW CLOSELY WITH HER PRIMARY PHYSICIAN MANAGINGZAIDI AND ARRANGED APPOINTMENT WITH CLOTH COVERED HELMET PULLER FOR HER ONGOING GI COMPLAINTS. The history is provided by medical records and the patient. Diarrhea Associated symptoms: abdominal pain, fever (REPORTS SHE HAD A FEVER YESTERDAY), myalgias ( FIBROMYALGIA) and vomiting Associated symptoms: no chills and no headaches No current facility-administered medications for this encounter. [...] needed for Anxiety. 30 Tab 0 ??? escitalopram (LEXAPRO) 10 MG Tablet Take 1 Tab by mouth daily. 90 Tab 0 ??? hydroxychloroquine (PLAQUENIL) 200 MG [...] file Gets together: Not on file Attends yarsanism service: Not on file Active member of [...] History Narrative ??? Not on file BP 134/87 Pulse 92 Temp 96.7 ??F (35.9 ??C) (Tympanic) Resp 21 Ht 5' 3 (1.6 m) Wt 155 lb(70.3 kg) LMP 06/19/2019 (Approximate) SpO2 100% BMI 27.46 kg/m?? Review of Systems Constitutional: Positive for activity change, appetite change and fever (REPORTS SHE HAD A FEVER YESTERDAY). Negative for chills. HENT: Negative for congestion, hearing loss, rhinorrhea and sore throat. Eyes: Negative for visual disturbance. Respiratory: Positive for cough. Negative for shortness of breath. Cardiovascular: Positive for chest pain ( CHEST WALL PAIN FROM COUGHING). Gastrointestinal: Positive for abdominal pain, diarrhea and vomiting. Negative for nausea. Genitourinary: Negative for difficulty urinating and dysuria. Musculoskeletal: Positive for myalgias ( FIBROMYALGIA). Skin: Negative for rash. Neurological: Negative for dizziness, seizures, syncope, weakness, light- headedness and headaches. Psychiatric/Behavioral: Negative for confusion. The patient is nervous/anxious. All other systems reviewed and are negative. Physical Exam Vitals signs and nursing note reviewed. Constitutional: General: She is not in acute distress. Appearance: Normal appearance. She is well-developed and normal weight. She is not ill-appearing, toxic-appearing or diaphoretic. HENT: Head: Normocephalic and atraumatic. Right Ear: External ear normal. Left Ear: External ear normal. Nose: Nose normal. Mouth/Throat: Mouth: Mucous membranes are moist. Eyes: General: No scleral icterus. Right eye: No discharge. Left eye: No discharge. Extraocular Movements: Extraocular movements intact. Conjunctiva/sclera: Conjunctivae normal. Pupils: Pupils are equal, [...] normal. Procedures Imaging Results None MDM Coding Discharge Disposition - documented in this encounter Disposition Code Departure Means Destination Discharge to home or self care ? ED Notes - documented in this encounter Dalila Cornejo MD - 07/13/2019 2:14 AM CDT CC: Diarrhea H&P: Carito Rausch is a 29 y.o. female with history of lupus, reports being compliant with medications, coming in primarily for diarrhea. She also has a lot of other symptoms. This is all been going onsince April, for 2 months, after a miscarriage. Today she had 15 episodes of nonbloody diarrhea. Nonbloody emesis x3. Intermittently has shortness of breath and fever. Reports that this has been going on for 2 months and has been tested for coronavirus 4 times stents been negative. She reports she has been admitted for the same symptoms. Denies chest pain or leg swelling. No dysuria frequency urgency. No vaginal symptoms. No abdominal pain. ROS: At least 10 systems reviewed and otherwise negative except as in the HPI. Past Medical History: Diagnosis Date ??? Anemia ??? Chronic kidney disease ??? Depression ??? Fibromyalgia ??? Fibromyalgia ??? Lupus (CMS/HCC) ??? 07/13/2015 ??? Rheumatoid arthritis (CMS/HCC) Past Surgical History: Procedure Laterality Date ??? APPENDECTOMY ??? DILATION AND CURETTAGE OF UTERUS ??? HAND SURGERY ??? WRIST SURGERY Right 12/09/2018 rt wrist median nerve repair, allograft nerve wrap application HOME MEDICATIONS : albuterol (PROAIR RESPICLICK) 90 mcg/actuation inhaler ALPRAZolam (XANAX) 0.25 mg tablet aluminum-magnesium hydroxide-simethicone & diphenhydramine 1:1 (MAGIC MOUTHWASH) suspension dicyclomine (BENTYL) 20 mg tablet diphenoxylate-atropine (LOMOTIL) 2.5-0.025 mg per tablet hydroxychloroquine (PLAQUENIL) 200 mg tablet hydrOXYzine (ATARAX) 10 mg tablet ketorolac (TORADOL) 10 mg tablet ondansetron ODT (ZOFRAN-ODT) 4 mg disintegrating tablet predniSONE (DELTASONE) 1 mg tablet predniSONE (DELTASONE) 5 mg tablet Allergies Allergen Reactions ??? Methylprednisolone Anaphylaxis and Syncope Syncope Social history: Nonsmoker, lives with Nursing Notes Reviewed. Physical Exam: ED Triage Vitals Temp Pulse Resp BP SpO2 -- -- -- -- -- Temp src Heart Rate Source Patient Position BP Location FiO2 (%) -- -- -- -- -- See paper documentation for nurse's notes and vital signs. GENERAL APPEARANCE: Awake and alert. No acute distress. HEAD: Atraumatic. EYES: Sclera anicteric. EOMI. ENT: Tolerates saliva. Oropharynx is normal without any exudate or swelling. No lymphadenopathy. NECK: Supple. Trachea midline. HEART: RRR. Radial pulses 2+. LUNGS: Respirations unlabored. CTAB. ABDOMEN: Soft. Non-tender. No guarding or rebound. No Valdez sign. No CVA tenderness. EXTREMITIES: No acute deformities. Symmetrical extremities without any edema. SKIN: Warm and dry. NEUROLOGICAL: No gross facial drooping. Moves all 4 extremities spontaneously. PSYCHIATRIC: Anxious affect. Denies SI HI and AVH. I have reviewed and interpreted all of the currently available lab results from this visit (if applicable): Labs Reviewed - No data to display Radiographs (if obtained): Report Reviewed: No orders to display EKG (if obtained): (All EKGs are interpreted by myself in the absence of a neurosurgery spine physician) Procedures Chart review shows: Frequent visits with similar complaints ED course/MDM: Patient was seen during [facility] downtime. See paper documentation. There were no vitals filed for this visit. Patient normal vital signs except for a very slightly elevated heart rate. She has been worked up in the past for DVT. She has had multiple coronavirus testing. She reports diarrhea for months now. She has never had any stool studies. She was not able to produce a stool sample here in the ER. I sent her with a prescription to have the stool studies done as an outpatient and referral to GI. She has history of appendectomy. No evidence of cholecystitis. Lungs are clear. She is not any respiratorydistress. She has been worked up multiple times for the same symptoms. At this time, there is no indication for lab work or advanced imaging. Patient has been given return precautions and follow-up in structions which he verbalized understanding and agreement. Clinical Impression: 1. Chronic diarrhea Disposition: Discharge (Please note that portions of this note may have been completed with a voice recognition program. Fleet Administrator errors occur. Please contact me for any clarification.) I, Dalila Cornejo MD, have personally performed the services described in the documentation Dalila Cornejo MD 07/13/19 0236 ? DX: CHRONIC ABDOMINAL PAIN CHRONIC LOOSE STOOL ANXIETY CHEST WALL PAIN COUGH * Tran Quiñonez RN - 07/13/2019 7:56 AM CDT PT ambulatory to triage with multiple complaints. PT reports being sick for months now. Reports abdominal pain, nausea, vomiting, diarrhea, shortness of breath, cough and fatigue. PT states she went to [facility] ER this morning, but was told that their lab machines were down, and was givenoutpatient orders for labs. PT initially to hospital for outpatient labs. Has stool specimen with her currently for outpatient testing. States she is supposed to be getting swabbed for COVID-[address] [facility] today. Reports max temp at home 101.3. Afebrile at this time. Denies any other complaints. PT Manuel&O x 4. Speech clear. Respirations even and non-labored. No signs of distress noted. documented in this encounter Plan of Treatment Not on file documented as of this encounter Visit Diagnoses Diagnosis Chronic abdominal pain- Primary Abdominal pain, unspecified site Loose stools Abnormal feces Anxiety states Anxiety state, unspecified Chest wall pain Painful respiration Cough documented in this encounter Additional Health Concerns Assessment Noted Time PHQ-9 Depression Total Score: 0 03/25/19 10:00 AM SADDLE CUTTER documented as of this encounter Care Teams Medical Technologist Chemistry Relationship Specialty Start Date End Date Gayla Barker, BOWLING BALL GRADER, VALET ATTENDANT [address] [place] [address] PCP - General Advanced Practice Nurse 03/25/19 documented as of this encounter
--- OUTSIDE RECORDS SUMMARY | 2024-02-24 19:48 | XMS_ITS | Encounter Summary ---
Author Organization [facility] Address [address] [place] [address] Phone Care Team Providers Care Transport Conductor Name Role Phone Gayla Barker APRN, MULTI NEEDLE MACHINE OPERATOR Primary Care Provider Reason for Visit * Reason Onset Date Comments Joint Pain 06/10/2019 Encounter Details Date Type Department Care Team (Late st Contact Info) Description 06/10/2019 Telephone [facility] [address] [place] [address] Gayla Barker, ANNIE, MULTI NEEDLE MACHINE OPERATOR [address] [place] [address] Joint Pain Social History Tobacco Use Types Packs/Day [...] on file Legal Sex Female 10:27 AM AOC DIRECTOR COMBAT OPERATIONS OFFICER Gender Identity Not on file Sexual Orientation Not on file COVID-19 Exposure Response Date Recorded In the last month, have you been in contact with someone who was confirmed or suspected to have Coronavirus / COVID-19? No / Unsure 05/31/2019 9:37 AM CDT documented as of this encounter Miscellaneous Notes * Telephone Encounter - Dayna Crawley RN - 06/10/2019 1:15 PM CDT Patient is aware and verbalizes understanding. * Telephone Encounter - Gayla Barker APN, CNP - 06/10/2019 10:47 AM CDT Those were mild elevations. Have patient call venetian blind mechanic. * Telephone Encounter - Leti Doan RN - 06/10/2019 10:13 AM CDT Patient calling and reporting she was [facility] the [facility] and wanted PCP to go over her c-reactive protein and sed rate were high. Call lost, sending to nurse pool due to another call camethrough. Patient reports that she has lupus and wants to know if she should repeat labs. Patient reports that everything feels super inflamed, it even hurts to swallow. Patient reports that she is able to swallow. Patient reports she is taking prednisone, hydroxychloroquine and meloxicam. Patient has taken these med for 2 years. Patient did have a telephone ov on 06/05/2019 with Gilmar CAGLE and her diarrhea is gone. Please advise. documented in this encounter Plan of Treatment Not on file documented as of this encounter Visit Diagnoses Not on filedocumented in this encounter Additional Health Concerns Assessment Noted Time PHQ-9 Depression Total Score: 0 03/25/19 20 10:00 AM AOC DIRECTOR COMBAT OPERATIONS OFFICER documented as of this encounter Care Teams Transport Conductor Relationship Specialty Start Date End Date Gayla Barker, ANNIE, HARSHA [address] [place] [address] PCP - General Advanced Practice Nurse 03/25/19 documented as of this encounter
--- OUTSIDE RECORDS SUMMARY | 2024-02-24 19:48 | XMS_ITS | Encounter Summary ---
Author Organization [facility] Address [address] [place] [address] Phone Care Team Providers Care Polymer Engineer Name Role Phone Gayla Barker APRN, SIGNAL ENGINEER Primary Care Provider Reason for Visit * Reason Onset Date Comments Medication Management 07/11/2019 Encounter Details Date Type Department Care Team (Late st Contact Info) Description 07/11/2019 Telephone [facility] [address] [place] [address] Gayla Barker, ANNIE, SIGNAL ENGINEER [address] [place] [address] Medication Management Social History Tobacco Use Types [...] on file Legal Sex Female 10:27 AM PHYSICIAN PRACTICE CONSULTANT Gender Identity Not on file Sexual Orientation Not on file COVID-19 Exposure Response Date Recorded In the last month, have you been in contact with someone who was confirmed or suspected to have Coronavirus / COVID-19? No / Unsure 07/07/2019 11:58 AM CDT documented as of this encounter Miscellaneous Notes * Telephone Encounter - Alyssa Almodovar RN - 07/11/2019 9:42 AM CDT Patient decided she wanted to make a telephone visit with PCP to talk about her anxiety and medications. Scheduled telephone visit today at 2:30 PM * Telephone Encounter - Alyssa Almodovar RN - 07/11/2019 9:31 AM CDT Patient is calling and states she takes the 0.25 mg Xanax TID, but thinks with the COVID, she's experiencing more anxiety and the Xanax is not helping anymore. Patient is asking if PCP would be willing to prescribe a really low dose of Ativan. Patient states her grandpa also takes Xanax takes an extended release and is asking maybe even trying this. Please advise. documented in this encounter Plan of Treatment Not on file documented as of this encounter Visit Diagnoses Not on filedocumented in this encounter Additional Health Concerns Assessment Noted Time PHQ-9 Depression Total Score: 0 03/25/19 20 10:00 AM PHYSICIAN PRACTICE CONSULTANT documented as of this encounter Care Teams Polymer Engineer Relationship Specialty Start Date End Date Gayla Barker, TUBE MOUNTER, SIGNAL ENGINEER [address] [place] [address] PCP - General Advanced Practice Nurse 03/25/19 documented as of this encounter
--- OUTSIDE RECORDS SUMMARY | 2024-02-24 19:48 | XMS_ITS | Encounter Summary ---
Author Organization [facility] Address [address] [facility] 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 No / Unsure 05/31/2019 9:37 AM CDT documented as of this encounter Patient Instructions * Patient Instructions* Gilmar De Paz PAC - 06/05/2019 1:20 PM CDT Diagnoses and all orders for this visit: Diarrhea, unspecified type - OVA AND PARASITE, CONCENTRATE AND PERMANENT SMEAR, MICROSCOPY, FECES, Z[place] OAP - will get additional ova and parasite testing as C diff testing was already done. - no additional lab work for evaluation as she has had multiple labs that is completed. - if ova and parasite testing is negative may consider proceeding with ultrasound for evaluation ofpossible gallbladder disease. - we may also consider starting Bentyl for symptom control. - Conservative management was discussed, see AVS Take all medications as prescribed. Please continue with a balanced lifestyle of exercise and healthy eating. If symptoms worsen or fail to improve please present to ED or [facility]. If any question, please call. As part of our continued efforts to provide you with excellent healthcare I would ask you to respond to survey you will receive in regards to your experience. Your input and efforts will contribute to improving our patient care experience. Thank you in advance for your participation in this important effort. Thanks for coming in today! documented in this encounter Progress Notes * Shaye Ramos CMA - 06/05/2019 1:20 PM CDT Carito Rausch complains of Abdominal Pain This is a new problem. The current episode started 1 to 4 weeks ago. The onset quality is gradual. The problem occurs constantly. Associated symptoms include diarrhea and vomiting. Mostly vomiting in the morning and after eating. States she is eating solid foods but only vomitingliquid. Has already gone to the restroom and had diarrhea about 10 times today. Today's Review of Systems Gastrointestinal: Positive for abdominal pain, diarrhea and vomiting. * Gilmar De Paz PAC - 06/05/2019 1:20 PM CDT Patient was assessed via telephone visit for a duration of 15 minutes. Patient verbally consented for this service to be performed and billed. HPI: Carito Rausch is a 29 y.o. female who presents today for evaluation of diarrhea, nausea, centralized abdominal pain x 1 month. Patient has been seen multiple times in the ER and telephone in office visits in primary care for evaluation of nonspecific symptoms-diarrhea, nausea, vomiting, fevers, cough, back pain, miscarriage.Patient has history of lupus and sees Rheumatology. After getting she was referred to [facility]. Patient reports that she was confirmed to have miscarriage- her OB did not want to see h er in office due to COVID-19, and she was instructed that with miscarriage this early on could be managed at home. Patient reports that she is now tested negative twice for COVID-19. Pt reports that she is having diarrhea up to 10 times daily in addition to centralized abdominal pain above umbilicus and nausea and vomiting every other day. Diarrhea 10 times already today. Pt denies any symptoms associated with meals- she reports that she eats very healthy and has been eating lots of chicken noodle soup. Patient reports that things seem to be worsening rather than improving. Patient reports that she is having some mucus and stools but denies any blood. Pt denies fevers, change in medications. Patient's labs do not show elevated liver enzymes, alk-phos, lipase. C diff testing was negative. Pt has had appendectomy. She still has a gallbladder. Pt has been taking hydroxychloroquine. Most recently she was placed on antibiotic but she is not sure what this is for. Patient is also been using Lomotil for diarrhea symptoms and has not noticed any improvement. Patient reports that she has a history of seizures but has stopped taking Keppra and reports that she has not seen Neurology. PROBLEM LIST: Patient Active Problem List Diagnosis ??? Herpes genitalis ??? Laceration of flexor muscle, fascia and tendon of right little finger at wrist and hand level, initial encounter ??? Pain in joint ??? Myalgia, unspecified site ??? Systemic lupus erythematosus (HCC) ??? Weakness ROS: Review of Systems Constitutional: Negative for chills and fever. Cardiovascular: Negative for chest pain and palpitations. Gastrointestinal: Positive for abdominal pain, diarrhea, nausea and vomiting. Negative for blood instool, constipation, heartburn and melena. Genitourinary: Negative. Skin: Negative for rash. Psychiatric/Behavioral: Pt does not seem to be in any acute distress as she is laughing through office visit telephone encounter. ALLERGIES: Allergies Allergen Reactions ??? Medrol [Methylprednisolone] Anaphylaxis MEDICATIONS: Current Outpatient Medications Medication Sig Dispense Refill [...] 90 Tab 3 No current facility-administered medications for this visit. VITAL SIGNS: There were no vitals filed for this visit. GENERAL EXAM: Physical Exam Not performed due to telephone encounter. TEST RESULTS: Results for orders placed or performed in visit on 05/27/19 HCG BETA SUBUNIT SERUM QUANT Result Value Ref Range HCG BETA SUBUNIT, QUANT 68.92 (H) <=5.00 mIU/mL LABS/ RADIOLOGY REPORTS/ CONSULT NOTES REVIEWED. DIAGNOSIS, PLAN AND FOLLOW UP: Patient Instructions Diagnoses and all orders for this visit: Diarrhea, unspecified type - OVA AND PARASITE, CONCENTRATE AND PERMANENT SMEAR, MICROSCOPY, FECES, [place] OAP - will get additional ova and parasite testing as C diff testing was already done. - no additional lab work for evaluation as she has had multiple labs that is completed. - if ova and parasite testing is negative may consider proceeding with ultrasound for evaluation ofpossible gallbladder disease. - we may also consider starting Bentyl for symptom control. - Conservative management was discussed, see AVS Take all medications as prescribed. Please continue with a balanced lifestyle of exercise and healthy eating. If symptoms worsen or fail to improve please present to ED or [facility]. If any question, please call. As part of our continued efforts to provide you with excellent healthcare I would ask you to respond to survey you will receive in regards to your experience. Your input and efforts will contribute to improving our patient care experience. Thank you in advance for your participation in this important effort. Thanks for coming in today! Patient verbalizes understanding and agrees with plan of care as noted above. An After Visit Summary was printed and given to the patient. Chief complaint and all history documented by ancillary staff were reviewed and verified, with additions or corrections, as appropriate. Gilmar De Paz PA-C documented in this encounter Plan of Treatment Not on file documented as of this encounter Visit Diagnoses Diagnosis Diarrhea, unspecified type- Primary documented in this encounter Additional Health Concerns Assessment Noted Time PHQ-9 Depression Total Score: 0 03/25/19 20 10:00 AM DOOR CAPTAIN documented as of this encounter Care Teams Biscuit Packer Relationship Specialty Start Date End Date Gayla Barker, PARTS PERSON, ASSOCIATE PROFESSOR OF LIBRARY SCIENCE [address] [place] [address] PCP - General Advanced Practice Nurse 03/25/19 documented as of this encounter
--- OUTSIDE RECORDS SUMMARY | 2024-02-24 19:48 | XMS_ITS | Encounter Summary ---
Author Organization [facility] Address [address] [place] [address] Phone Care Team Providers Care Potato Chip Sorter Name Role Phone Gayla Barker APRN, URBAN ANTHROPOLOGIST Primary Care Provider Encounter Details Date Type Department Care Team (Latest Contact Info) Description 05/30/2019 4:50 PM CDT Ancillary Procedure [facility] - [place] [address] [place] [phone] Discharge Disposition: Discharged to home or Selfcare [...] on file Legal Sex Female 10:[address] Gender Identity Not on file Sexual Orientation [...] Electronically signed by Cirilo Joiner M.D. CN: CN D: ??05/30/2019 5:04 PM T: ??05/30/2019 5:04 PM Report ID: [id number] Reading Location: ??[id number] Procedure Note Cirilo Joiner MD - 05/30/2019 [...] Cirilo Joiner M.D. CN: BLAYNE Report ID: [id number] Reading Location: [id number] IMPRESSION: No acute cardiopulmonary process. us Gayla Barker APRN, CNP IMG DIAGNOSTIC ORDERABL ES Final Result documented in this encounter Visit Diagnoses Not on filedocumented in this encounter Additional Health Concerns Assessment Noted Time PHQ-9 Depression Total Score: 0 03/25/19 10:[address] JUDGE documented as of this encounter Care Teams Potato Chip Sorter Relationship Specialty Start Date End Date Gayla Barker APRN, CNP [address] [place] [address] PCP - General Advanced Practice Nurse 03/25/19 documented as of this encounter
--- OUTSIDE RECORDS SUMMARY | 2024-02-24 19:48 | XMS_ITS | Encounter Summary ---
Author Organization [facility] Address [address] [facility] [address] Phone Care Team Providers Care Offshore Wind Operations Manager Name Role Phone Gayla Barker APRN, MOSAIC TECHNICIAN Primary Care Provider Reason for Visit * Reason Comments Patient Outreach CM - Provider Referr al Encounter Details Date Type Department Care Team ([facility] st Contact Info) Description 05/28/2019 Care Management [facility] Steam Box Tender Management [address] [place] [address] Shi Spicer LPN [place] Patient Outreach (CM - Provider Referral) Social History Tobacco Use Types Packs/Day Years [...] on file Legal Sex Female 10:27 AM MAMMOGRAPHY 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 No / Unsure 05/27/2019 10:19 AM CDT documented as of this encounter Progress Notes * Shi Spicer LPN - 05/28/2019 9:48 AM CDT Patient referral in PCP workque for AMB Care Management. Referral note from Gayla Barker APN/PCP. Referral received for Carito is being referred for no insurance. CM outreach placed to patient today to offer SW CM Care Management assistance. Spoke with patient. Additional information: Agreeable to CM services Scheduled phone assessment with TAMIKA Torres on 06/02/19 at 9:00 am. Welcome letter sent Yes Routed information to TAMIKA Torres as FYI. * Shi Spicer LPN - 05/28/2019 9:48 AM CDT Outgoing call to patient in order to reschedule phone assessment due to scheduling conflict. Phone enrollment scheduled for 06/02/19 at 1:00 pm with TAMIKA Torres. documented in this encounter Plan of Treatment Not on file documented as of this encounter Visit Diagnoses Not on filedocumented in this encounter Additional Health Concerns Assessment Noted Time PHQ-9 Depression Total Score: 0 03/25/19 10:00 AM MAMMOGRAPHY TECHNICIAN documented as of this encounter Care Teams Offshore Wind Operations Manager Relationship Specialty Start Date End Date Gayla Barker, ANNIE, MOSAIC TECHNICIAN [address] [place] [address] PCP - General Advanced Practice Nurse 03/25/19 documented as of this encounter
--- OUTSIDE RECORDS SUMMARY | 2024-02-24 19:48 | XMS_ITS | Encounter Summary ---
Author Organization [facility] Address [address] [facility] [place] [address] Phone Care Team Providers Care Tea Tree Farm Worker Name Role Phone Gayla Barker APRN, CNP Primary Care Provider Reason for Visit * Reason Onset Date Comments Medication Refill 05/08/2019 Encounter Details Date Type Department Care Team (Late st Contact Info) Description 05/08/2019 Refill [facility] [place] [address] [place] [phone] Gayla Barker, ANNIE, CONTACT LENS BLOCKER [address] [place] [address] Medication Refill Social History Tobacco [...] on file Legal Sex Female 10:27 AM LAND RECLAMATION SPECIALIST Gender Identity Not on file Sexual Orientation Not on file documented as of this encounter Miscellaneous Notes * Telephone Encounter - Gayla Barker, PENNY, HARSHA - 05/09/2019 12:30 PM CDT Approved * Telephone Encounter - Gayla Patel RN - 05/09/2019 8:48 AM CDT Requested Prescriptions Pending Prescriptions Disp Refills ALPRAZolam (XANAX) 0.25 MG Tablet 30 Tab 0 Sig: Take 1 Tab by mouth 3 times daily as needed for Anxiety. Not Delegated - Psychiatry: Anxiolytics/Hypnotics Failed - 05/08/2019 3:56 PM Failed - This refill cannot be delegated Passed - Valid encounter within last 6 months Past Office Visits Recent Outpatient Visits 1 week ago Arthralgia, unspecified joint [facility] - Gayla Wood APN, CONTACT LENS BLOCKER 1 month ago Arthralgia of both knees [facility] - Gayla Wood, PENNY, CONTACT LENS BLOCKER Upcoming Appointments Future Appointments In [address] predniSONE (DELTASONE) 10 MG Tablet 90 Tab 3 Sig: Take 1 Tab by mouth daily. Not Delegated - Endocrinology: Corticosteroids Failed - 05/08/2019 3:56 PM Failed - This refill cannot be delegated Passed - Valid encounter within last 6 months Past Office Visits Recent Outpatient Visits 1 week ago Arthralgia, unspecified joint [facility] - Gayla Wood APN, CONTACT LENS BLOCKER 1 month ago Arthralgia of both knees [facility] - Gayla Wood APN, CONTACT LENS BLOCKER Upcoming Appointments Future Appointments In [address] Passed - Last BP in normal range BP Readings from Last 1 Encounters: 04/28/19 122/66 hydroxychloroquine (PLAQUENIL) 200 MG Tablet 90 Tab 3 Sig: Take 1 Tab by mouth daily. Not Delegated - Analgesics: Antirheumatic Agents - Biologics & DMARDs Failed - 05/08/2019 3:56 PM Failed - This refill cannot be delegated Passed - Valid encounter within last 12 months Past Office Visits Recent Outpatient Visits 1 week ago Arthralgia, unspecified joint [facility] - Gayla Wood APN, CONTACT LENS BLOCKER 1 month ago Arthralgia of both knees [facility] - Gayla Wood APN, HARSHA Upcoming Appointments Future Appointments In [address] predniSONE (DELTASONE) 5 MG Tablet 90 Tab 3 Sig: Take 1 Tab by mouth daily. Not Delegated - Endocrinology: Corticosteroids Failed - 05/08/2019 3:56 PM Failed - This refill cannot be delegated Passed - Valid encounter within last 6 months Past Office Visits Recent Outpatient Visits 1 week ago Arthralgia, unspecified joint [facility] - Gayla Wood APN, HARSHA 1 month ago Arthralgia of both knees [facility] - Gayla Wood APN, HARSHA Upcoming Appointments Future Appointments In [address] Passed - Last BP in normal range BP Readings from Last 1 Encounters: 04/28/19 122/66 * Telephone Encounter - Alyssa Almodovar RN - 05/08/2019 3:52 PM CDT RFC: FAX REFILL REQUEST Name of medication needed?Xanax ??.025mg Take one tablet three times daily ?Prednisone ??10mg Take one tablet daily ? Predisone ??5mg Take one tablet daily ?[id number] Take one tablet daily Pharmacy ?? [facility] 30 or 90 day supply? ?? 30 Provider ??Gayla Barker documented in this encounter Plan of Treatment Not on file documented as of this encounter Visit Diagnoses Not on filedocumented in this encounter Additional Health Concerns Assessment Noted Time PHQ-9 Depression Total Score: 0 03/25/19 10:00 AM LAND RECLAMATION SPECIALIST documented as of this encounter Care Teams Tea Tree Farm Worker Relationship Specialty Start Date End Date Gayla Barker, MEDICAL ASSISTING PROGRAM DIRECTOR, CONTACT LENS BLOCKER [address] [place] [address] PCP - General Advanced Practice Nurse 03/25/19 documented as of this encounter
--- OUTSIDE RECORDS SUMMARY | 2024-02-24 19:48 | XMS_ITS | Encounter Summary ---
Author Organization [facility] Address [address] [facility] [place] [address] Phone Care Team Providers Care Ship'S Captain Name Role Phone Gayla Barker APRN, HARSHA Primary Care Provider Reason for Visit * Reason Onset Date Comments COVID-19 05/21/2019 Follow-up 05/21/2019 Encounter Details Date Type Department Care Team ([facility] Contact Info) Description 05/21/2019 Telephone [facility] [address] [place] [address] Gayla Barker APRN, AIRBORNE ELECTRONICS ANALYST [address] [place] [address] COVID-19; Follow-up Social History Tobacco Use Types Packs/Day [...] on file Legal Sex Female 10:27 AM RADIOLOGY 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 Yes 05/23/2019 9:39 AM CDT documented as of this encounter Miscellaneous Notes * Telephone Encounter - Angelique Crisostomo RN - 05/27/2019 7:44 AM CDT Notified patient. Voiced understanding. Patient stated that she did miscarry. Patient asking to make an appointment with provider. Scheduled telephone ED follow up with provider on 05/28/2019. * Telephone Encounter - Alyssa Almodovar RN - 05/22/2019 11:31 AM CDT Left message with patient to call office back. * Telephone Encounter - Gayla Barker APN, CNP - 05/21/2019 3:40 PM CDT I have nothing to add that the ER did not tell her. She could call her OB. * Telephone Encounter - Giana Woo RN - 05/21/2019 3:12 PM CDT SITUATION: Patient calling with follow up from ED BACKGROUND: Hx of Lupus. Is on Plaquenil 400 mg daily. Hx of asthma. Albuterol inhaler once or twice daily. Was seen in [place] ED 05/18. ASSESSMENT: Symptom Description / Location: Reports she has a slight productive cough. States she feels like there is something stuck in her throat. Feels really achy . Has a slight sore throat and R earache. Reports she has some chest heaviness when she takes a deep breath. Denies SOB more than normal given asthma history. Patient speaking in full sentences on the phone. Has diarrhea. States it comes on quick and at times cannot make it to the toilet. Had blood on toilet paper, but not in stool. States she only has abd cramping when she has to have a BM. Has vomited a few times. Pain (0-10): Temp: 101.6 2 days ago, has not had one since Treatment / Response: Tylenol for fever, prednisone 10 mg daily RECOMMENDATION: See care advice and disposition for Guideline First positive answer recorded, all responses to prior questions were negative. If symptoms increase, change or if new symptoms develop, call your HCP or call back. Recommendations were based on caller information and is not a diagnosis. Verified and reviewed all triage information with caller. Since patient has been seen in ED for symptoms, notified patient RN will send information to PCP for further recommendations. * Telephone Encounter - Dayna Chaudhry RN - 05/21/2019 3:07 PM CDT Images from the original note [...] last month? No Travel History Travel since 04/22/19 No documented travel since 04/22/19 Patients whose symptoms require immediate emergency assistance should be directed to contact 911 for emergency assistance. If triage nurse is calling 911, notify them of the positive screening. Screening Positive/Negative? NEGATIVE Patient is experiencing symptoms - Educate patient using CDC care guidelines and ask patient/callerif they would like to speak to time clerk. Did patient request time clerk? yes ??? Patient counseled to remain at home unless symptoms get worse and to quarantine for 14 days from symptom onset. ??? Patient to push fluid intake and take medication for fever if needed. ??? If you do not live alone: segregate yourself, use a separate bathroom if possible, sleep in a separate area, have no family time, and the person with symptoms is not to prepare food for others. ??? If symptoms worsen the patient was counseled to call back to their primary care provider office. ? ? Seek emergency care only if symptoms warrant & to call care facility prior to leaving home for treatment. ??? Pt visited ER 05/15 and 05/18. Was screened on the [employer] hotline on 05/18. States symptoms are worse today. DAYNA CHAUDHRY, RN documented in this encounter Plan of Treatment Not on file documented as of this encounter Visit Diagnoses Not on filedocumented in this encounter Additional Health Concerns Assessment Noted Time PHQ-9 Depression Total Score: 0 03/25/19 10:00 AM RADIOLOGY CLERK documented as of this encounter Care Teams Ship'S Captain Relationship Specialty Start Date End Date Gayla Barker, CORRECTIONAL TREATMENT SPECIALIST, AIRBORNE ELECTRONICS ANALYST [address] [place] [address] PCP - General Advanced Practice Nurse 03/25/19 documented as of this encounter
--- OUTSIDE RECORDS SUMMARY | 2024-02-24 19:48 | XMS_ITS | Encounter Summary ---
Author Organization [email or web address] Care Team Providers Care Physical Integration Practitioner Name Role Phone Gayla Barker APRN, HARSHA [...] on file Legal Sex Female 10:27 AM GREEN BELT Gender Identity Not on file Sexual Orientation [...] Total Score: 0 03/25/19 20 10:00 AM GREEN BELT documented as of this encounter Care Teams Physical Integration Practitioner Relationship Specialty Start Date End Date Gayla Barker APRN, HARSHA [address] [place] [address] PCP - General Advanced Practice Nurse 03/25/19 documented as of this encounter
--- OUTSIDE RECORDS SUMMARY | 2024-02-24 19:48 | XMS_ITS | Encounter Summary ---
Author Organization [facility] Address [address] [place] [address] Phone Care Team Providers Care Woods Boss Name Role Phone Gayla Barker APRN, PROJECT PORTFOLIO ANALYST Primary Care Provider Reason for Visit * Reason Comments Abdominal Pain Encounter Details Date Type Department Care Team ([facility] Contact Info) Description 05/16/2019 10:11 AM CDT - 05/16/2019 12:11 PM CDT Emergency [facility] Emergency [address] [place] [address] Faizan Loco, PAC [address] [place] [address] Vaginal discharge Discharge Disposition: Discharged to home [...] on file Legal Sex Female 10:27 AM BENCH MOLDER Gender Identity Not on file Sexual Orientation Not on file COVID-19 Exposure Response Date Recorded In the last month, have you been in contact with someone who was confirmed or suspected to have Coronavirus / COVID-19? No / Unsure 05/16/2019 10:03 AM CDT documented as of this encounter Last Filed Vital Signs Vital Sign Reading Time Taken Comments Blood Pressure 124/86 05/16/2019 12:03 PM CDT Pulse 93 05/16/2019 12:03 PM CDT Temperature 36.6 ??C (97.9 ??F) 05/16/2019 12:03 PM C DT Respiratory Rate 18 05/16/2019 12:03 PM CDT Oxygen Saturation 99% 05/16/2019 12:03 PM CDT Inhaled Oxygen Concentration - - Weight 72.6 kg (160 lb) 05/16/2019 10:01 AM CDT Height 160 cm (5' 3 ) 05/16/2019 10:01 AM CDT Body Mass Index 28.34 05/16/2019 10:01 AM CDT documented in this encounter Discharge Instructions * Attachments The following attachments cannot be sent through Care Everywhere. * Vaginal Infection, Preventing (Scottish) documented in this encounter Medications at Time [...] Vaginal route nightly. 70 g 05/16/2019 06/05/19 omeprazole (PRILOSEC) 20 MG CAPSULE DELAYED RELEASE [...] (Description and Location) 50 g 04/01/2019 06/05/19 documented as of this encounter ED Notes * Leti Ames RN - 05/16/2019 12:10 PM CDT TSERING Haney at bedside to answer pt questions. * Leti Ames RN - 05/16/2019 12:07 PM CDT Patient discharged. Discharge instructions and patient educational material reviewed with patient; questions and concerns addressed; patient verbalizes understanding, using teach back. Patient was given 1 prescriptions. Patient was informed no drinking alcohol, driving or operating heavy machinery while taking narcotics or muscle relaxants. Patient discharged per ambulatory mode with spouse as responsible republican. * Leti Ames RN - 05/16/2019 12:07 PM CDT Pt medicated per provider orders. Pt educated on intended effects and side effects of medication and verbalized understanding, able to provide teach back of education. * Leti Ames RN - 05/16/2019 11:16 AM CDT Pt resting on stretcher, no current needs at this time. Family at bedside, call light within reach. * Beronica Faizan Dilan, PAC - 05/16/2019 10:22 AM CDT Chief Complaint Patient presents with ??? Abdominal Pain Carito Rausch is a 29 y.o. M1 female with lupus and epilepsy who presents to the ED c/o lower abd cramping, urinary frequency and white malodorous vaginal discharge. Patient states she is 2-3 weeks . She had an hcg quant drawn 2 days ago resulting at 42. No current facility-administered medications for this encounter. [...] Comment: occasionally ??? Drug use: Yes Types: Marijuana ??? Sexual activity: Not on [...] History Narrative ??? Not on file BP 133/78 Pulse 100 Temp 98.7 ??F (37.1 ??C) (Tympanic) Resp 16 Ht 5' 3 (1.6 m) Wt 160 lb (72.6 kg) LMP 04/14/2019 SpO2 100% BMI 28.34 kg/m?? Review of Systems Constitutional: Negative for chills, fatigue and fever. HENT: Negative for congestion and sore throat. Cardiovascular: Negative for chest pain and palpitations. Gastrointestinal: Positive for abdominal pain. Negative for constipation, diarrhea, nausea and vomiting. Genitourinary: Positive for frequency and vaginal discharge. Negative for dysuria, hematuria, urgency, vaginal bleeding and vaginal pain. Musculoskeletal: Negative for arthralgias, back pain and myalgias. Skin: Negative for color change and wound. Neurological: Negative for dizziness and headaches. Physical Exam Vitals signs and nursing note [...] There is no mass. Tenderness: There is abdominal tenderness in the right lower quadrant, suprapubic area and left lower quadrant. There is no guarding or rebound. Musculoskeletal: Normal range of motion. General: No tenderness. Skin: General: Skin is warm and dry. Coloration: Skin is not pale. Findings: No erythema or rash. Neurological: Mental Status: She is alert and oriented to person, place, and time. Cranial Nerves: No cranial nerve deficit. Psychiatric: Behavior: Behavior normal. Complete Blood Count (CBC) WITH Diff Final Result CMP (Comprehensive Metabolic Panel) Final Result HCG Beta Subunit Serum Quant Final Result Protime (PT) (Prothrombin Time) Final Result APTT (PTT) Final Result URINALYSIS REFLEX IF INDICATED BY ABNORMAL RESULTS Final Result Procedures Imaging Results None MDM Coding Clinical Impression 1. Vaginal discharge 2. First trimester Reviewed labs with patient. Quantitative HCG 140 today compared to 42 05/14/2019. Patient had OB US done yesterday and was too early in for visualized . Will start diflucan and metro-gel today. Patient to contact OB today for routine follow up. She is to return to ED for worseningsxs. The patient remained stable throughout their ED [...] the need for follow up. Cosigned by Jorge Ramirez MD at 05/17/2019 6:50 AM CDT * Darwin Moreno, RN - 05/16/2019 10:07 AM CDT pt c/o's cramping pain off and on across lower abd for the last 2 days. she recently found out she is . this is her second . she had complete placental separation at 6.5 months in previous . she c/o's generalized body aches. she is pink, w/d to touch. resp unlabored. documented in this encounter Plan of Treatment Not on file documented as of this encounter Procedures Procedure Name Priority Date/Time Associated Diagnosis Comments CBC WITH AUTO DIFFERENTIAL STAT 05/16/2019 11:08 AM CDT APTT (PTT) STAT 05/16/2019 11:08 AM CDT PROTIME (PT) (PROTHROMBIN TIME) STAT 05/16/2019 11:08 AM CDT HCG BETA SUBUNIT SERUM QUANT STAT 05/16/2019 11:08 AM CDT CMP (COMPREHENSIVE METABOLIC PANEL) STAT 05/16/2019 11:08 AM CDT COMPLETE BLOOD COUNT (CBC) WITH DIFF STAT 05/16/2019 11:08 AM CDT URINALYSIS REFLEX IF INDICATED BY ABNORMAL RESULTS STAT 05/16/2019 10:27 AM CDT documented in this encounter Results * (ABNORMAL) CBC with Auto Differential (05/16/2019 11:08 AM CDT) WBC 6.85 4.00 - 12.00 10(3)/mcL 05/16/2019 11:15 AM CDT [facility] RBC 3.97 3.80 - 5.30 10(6)/mcL 05/16/2019 11:15 AM CDT [facility] HEMOGLOBIN (HGB) 11.2(L) 12.0 - 15.8 g/dL 05/16/2019 11:15 AM CDT [facility] HEMATOCRIT (HCT) 35.6(L) 36.0 - 47.0 % 05/16/2019 11:15 AM CDT [facility] MCV 89.7 82.0 - 96.0 fL 05/16/2019 11:15 AM CDT [facility] MCH 28.2 26.0 - 34.0 pg 05/16/2019 11:15 AM CDT [facility] MCHC 31.5 31.0 - 36.0 g/dL 05/16/2019 11:15 AM CDT [facility] PLATELET COUNT 286 140 - 440 10(3)/[facility] 05/16/2019 11:15 AM CDT [facility] RDW 14.0 11.8 - 15.5 % 05/16/2019 11:15 AM CDT [facility] MPV 9.0(L) 9.7 - 12.4 fL 05/16/2019 11:15 AM CDT [facility] NEUTROPHILS 91.0(H) 47.0 - 73.0 % 05/16/2019 11:15 AM CDT [facility] LYMPHOCYTES 5.5(L) 18.0 - 42.0 % 05/16/2019 11:15 AM CDT [facility] MONOCYTES 3.1(L) 4.0 - 12.0 % 05/16/2019 11:15 AM CDT [facility] EOSINOPHILS 0.3 0.0 - 5.0 % 05/16/2019 11:15 AM CDT [facility] BASOPHILS 0.1 0.0 - 1.0 % 05/16/2019 11:15 AM CDT [facility] ABSOLUTE NEUTROPHILS 6.23 1.60 - 7.70 10(3)/[facility] 05/16/2019 11:15 AM CDT [facility] ABSOLUTE LYMPHOCYTES 0.38(L) 1.30 - 3.20 10(3)/[facility] 05/16/2019 11:15 AM CDT [facility] ABSOLUTE MONOCYTES 0.21 0.20 - 1.00 10(3)/[facility] 05/16/2019 11:15 AM CDT [facility] ABSOLUTE EOSINOPHIL 0.02 0.00 - 0.40 10(3)/[facility] 05/16/2019 11:15 AM CDT [facility] ABSOLUTE BASOPHILS 0.01 0.00 - 0.10 10(3)/[facility] 05/16/2019 11:15 AM CDT [facility] NRBC PER 100 WBC 0 05/16/19 11:15 AM CDT [facility] Blood specimen (specimen) Venipuncture / Unknown 05/16/2019 11:08 AM CDT 05/16/2019 11:13 AM CDT us Faizan Loco PAC HEMATOLOGY ORDERABLE S Final Result [facility] [address] [place] [address] * APTT (PTT) (05/16/2019 11:08 AM CDT) PTT 26 24 - 36 sec 05/16/2019 11:28 AM CDT [facility] Blood specimen (specimen) Venipuncture / Unknown 05/16/2019 11:08 AM CDT 05/16/2019 11:13 AM CDT Narrative [facility] - 05/16/2019 11:28 AM CDT Therapeutic range for unfractionated heparin at 0.3-0.7 U/mL is an aPTT value in the range of 71-100 seconds. Critical value for the PTT test is >= 122 seconds. Faizan Dilan Loco PAC HEMATOLOGY ORDERABLE S Final Result Performing Organization Address [facility] de Phone Number [facility] [address] [place] [address] * Protime (PT) (Prothrombin Time) (05/16/2019 11:08 AM CDT) Pathologist [facility] PROTIME-PATIENT 13.0 11.6 - 14.8 sec 05/16/2019 11:28 AM CDT [facility] INR 1.0 0.9 - 1.2 05/16/2019 11:28 AM CDT [facility] Comment: Therapeutic Ranges INR = 2.0-3.0: Venous thromb, atrial fib, pul embolism, tissue heart valve, ami. INR = 2.5-3.5: Mechanical heart valve Critical value for INR is >/= 4.5 Blood specimen (specimen) Venipuncture / Unknown 05/16/2019 11:08 AM CDT 05/16/2019 11:13 AM CDT Faizan Loco PAC HEMATOLOGY ORDERABLE S Final Result Performing Organization Address [facility] Co de Phone Number [facility] [address] [place] [address] * (ABNORMAL) HCG Beta Subunit Serum Quant (05/16/2019 11:08 AM CDT) Pathologist [facility] HCG BETA SUBUNIT, QUANT 140.70(H) <=5.00 mIU/mL 05/16/2019 11:35 AM CDT [facility] Blood specimen (specimen) Venipuncture / Unknown 05/16/2019 11:08 AM CDT 05/16/2019 11:13 AM CDT Narrative [facility] - 05/16/2019 11:35 AM CDT HCG Interpretive Reference Ranges Wks of : References Ranges 4 wks [phone] wks [phone] wks [phone] 7 wks [phone] 8 wks [phone] 9 wks [id number] 10 wks [id number] 14 wks [phone] 15 wks [id number] 16 wks [phone] 17 wks [phone] 18 wks [phone] 19 wks [phone] Non- Female: 0-4 us Faizan Loco PAC CHEMISTRY ORDERABLES Final Result [facility] [address] [place] [address] * (ABNORMAL) CMP (Comprehensive Metabolic Panel) (05/16/2019 11:08 AM CDT) SODIUM 139 136 - 144 mmol/L 05/16/2019 11:46 AM CDT [facility] POTASSIUM 4.1 3.5 - 5.1 mmol/L 05/16/2019 11:46 AM CDT [facility] CHLORIDE 102 100 - 110 mmol/L 05/16/2019 11:46 AM CDT [facility] CO2, VENOUS 24 22 - 32 mmol/L 05/16/2019 11:46 AM CDT [facility] ANION GAP 17.1 8.0 - 20.0 mmol/L 05/16/2019 11:46 AM CDT [facility] GLUCOSE 85 70 - 99 mg/dL 05/16/2019 11:46 AM CDT [facility] BUN 13 6 - 20 mg/dL 05/16/2019 11:46 AM CDT [facility] CREATININE, BLOOD 0.51(L) 0.60 - 1.10 mg/dL 05/16/2019 11:46 AM CDT [facility] BUN/CREATININE RATIO 25(H) 12 - 20 ratio 05/16/2019 11:46 AM CDT [facility] TOTAL PROTEIN 7.4 6.0 - 8.3 g/dL 05/16/2019 11:46 AM CDT [facility] ALBUMIN 4.0 3.5 - 5.2 g/dL 05/16/2019 11:46 AM CDT [facility] Comment: The colormetric methods used for the determination of Albumin may lead to falsely elevated test results in patients suffering from renal failure or insufficiency due to interference with other proteins. A/G RATIO 1.2 1.0 - 2.0 05/16/2019 11:46 AM CDT [facility] CALCIUM 9.3 8.9 - 10.3 mg/dL 05/16/2019 11:46 AM CDT [facility] T BILI <=0.2 <=1.2 mg/dL 05/16/2019 11:46 AM CDT [facility] SGOT (AST) 13 <=32 U/L 05/16/2019 11:46 AM CDT [facility] SGPT (ALT) 11 <=33 U/L 05/16/2019 11:46 AM CDT [facility] ALKALINE PHOSPHATASE 37 35 - 105 U/L 05/16/2019 11:46 AM CDT [facility] GFR, EST. NONAFRICAN >60 >=60 05/16/2019 11:46 AM CDT [facility] GFR, EST. >60 >=60 020 11:46 AM CDT [facility] Comment: Creatinine Clearance is the preferred criteria for selecting drug dose adjustments in renally impaired patients. ??The GFR is provided as additional pertinent clinical information. GFR is reported in mL/min/1.73 sq m. Blood specimen (specimen) Venipuncture / Unknown 05/16/2019 11:08 AM CDT 05/16/2019 11:13 AM CDT us Faizan Loco PAC CHEMISTRY ORDERABLES Final Result [facility] [address] [place] [address] * (ABNORMAL) URINALYSIS REFLEX IF INDICATED BY ABNORMAL RESULTS (05/16/2019 10:27 AM CDT) SPECIFIC GRAVITY 1.020 1.003 - 1.030 05/16/2019 11:03 AM CDT [facility] URINE PH 6.0 5.0 - 9.0 05/16/2019 11:03 AM CDT [facility] WBC ESTERASE Negative Negative 05/16/2019 11:03 AM CDT [facility] NITRITE Negative Negative 05/16/2019 11:03 AM CDT [facility] PROTEIN, RANDOM URINE 30 mg/dL(A) Negative 05/16/2019 11:03 AM CDT [facility] URINE GLUCOSE, QUAL Negative Negative 05/16/2019 11:03 AM CDT [facility] URINE KETONES Negative Negative 05/16/2019 11:03 AM CDT [facility] UROBILINOGEN Normal Normal mg/dL 05/16/2019 11:03 AM CDT [facility] URINE BILIRUBIN Negative Negative 0 11:03 AM CDT [facility] URINE BLOOD Negative Negative pierre/ul 05/16/2019 11:03 AM CDT [facility] URINALYSIS COLOR Yellow 05/16/19 11:03 AM CDT [facility] URINALYSIS CLARITY Clear 05/16/2019 11:03 AM CDT [facility] WBC (Urine) 0-5 Negative, 0-5 /hpf 05/16/2019 11:03 AM CDT [facility] URINE RBC'S 0-2 Negative, 0-2 /hpf 05/16/2019 11:03 AM CDT [facility] EPITHELIAL CELLS Moderate amount /lpf 05/16/2019 11:03 AM CDT [facility] BACTERIA, URINE Many(A) Negative /hpf 05/16/2019 11:03 AM CDT [facility] Urine specimen (specimen) URINE SPECIMEN / Unknown Non-Phlebotomy Collection / Unknown 05/16/2019 10:27 AM CDT 05/16/2019 10:42 AM CDT us Faizan Kong Beronica PAC URINE ORDERABLES Fin al Result [facility] [address] [place] [address] documented in this encounter Visit Diagnoses Diagnosis Vaginal discharge- Primary Leukorrhea, not specified as infective First trimester documented in this encounter Administered Medications Inactive Administered Medications - up to 3 most recent administrations Medication Order MAR Action Action Date Dose Rate Site fluconazole (DIFLUCAN) tablet 200 mg 200 mg, Oral, DAILY, First dose on Sun05/16/19 at 1230, Until Discontinued, Indications: Obstetric and Gynecologic InfectionIndications:Obstetric and Gynecologic Infection Given 05/16/2019 12:07 PM CDT 200 mg documented in this encounter Active and Recently Administered Medications Times are shown in CDT. Scheduled Medication Order 05/14/2019 05/15/2019 05/16/2019 fluconazole (DIFLUCAN) tablet 200 mg 200 mg, Oral, DAILY, First dose on Sun05/16/19 at 1230, Until Discontinued, Indications: Obstetric and Gynecologic Infection 1207 (Given - Provid er: Leti Ames RN) documented in this encounter Additional Health Concerns Assessment Noted Time PHQ-9 Depression Total Score: 0 03/25/19 10:00 AM BENCH MOLDER documented as of this encounter Care Teams Woods Boss Relationship Specialty Start Date End Date Gayla Barker, MUSIC DIRECTOR, PROJECT PORTFOLIO ANALYST [address] [place] [address] PCP - General Advanced Practice Nurse 03/25/19 documented as of this encounter
--- OUTSIDE RECORDS SUMMARY | 2024-02-24 19:48 | XMS_ITS | Encounter Summary ---
Author Organization [facility] Address [address] [place] [address] Phone Care Team Providers Care Commercial Print Salesman Name Role Phone Gayla Barker APRN, HARSHA Primary Care Provider Reason for Visit * Reason Onset Date Comments Results 04/29/2019 Chest x-ray Encounter Details Date Type Department Care Team (Late st Contact Info) Description 04/29/2019 Telephone [facility] [place] [address] [place] [address] Gayla Barker APRN, WIRE DRAWER [address] [place] [address] Results (Chest x-ray) Social History Tobacco Use Types Packs/Day Years [...] on file Legal Sex Female 10:27 AM PRODUCT EVANGELIST Gender Identity Not on file Sexual Orientation Not on file documented as of this encounter Miscellaneous Notes * Telephone Encounter - Leti Gusman RN - 04/29/2019 9:41 AM PRODUCT EVANGELIST Phoned patient with chest x-ray results. Patient aware and verbalized understanding. No questions for brief writer. UCT EVANGELIST * Telephone Encounter - Leti Gusman RN - 04/29/2019 9:40 AM PRODUCT EVANGELIST ----- Message from Gayla Barker APN, CNP sent at 04/29/2019 9:28 AM PRODUCT EVANGELIST ----- Chest x-ray is normal. UCT EVANGELIST documented in this encounter Plan of Treatment Not on file documented as of this encounter Visit Diagnoses Not on filedocumented in this encounter Additional Health Concerns Assessment Noted Time PHQ-9 Depression Total Score: 0 03/25/19 10:00 AM PRODUCT EVANGELIST documented as of this encounter Care Teams Commercial Print Salesman Relationship Specialty Start Date End Date Gayla Barker APRN, CNP [address] [place] [address] PCP - General Advanced Practice Nurse 03/25/19 documented as of this encounter
--- OUTSIDE RECORDS SUMMARY | 2024-02-24 19:48 | XMS_ITS | Encounter Summary ---
Author Organization [facility] Address [address] [place] [address] Phone Care Team Providers Care Crew Boss Name Role Phone Gayla Barker APRN, HARSHA Primary Care Provider Encounter Details Date Type Department Care Team (Late st Contact Info) Description 05/14/2019 Telephone [facility] [address] [place] [address] Gayla Barker APRN, CLEANING MAID [address] [place] [address] Social History Tobacco Use Types [...] on file Legal Sex Female 10:27 AM HOUSEKEEPING CLEANER Gender Identity Not on file Sexual Orientation Not on file COVID-19 Exposure Response Date Recorded In the last month, have you been in contact with someone who was confirmed or suspected to have Coronavirus / COVID-19? No / Unsure 05/14/2019 1:06 PM CDT documented as of this encounter Miscellaneous Notes * Telephone Encounter - Leti Gusman RN - 05/14/2019 2:56 PM CDT See other telephone encounter of 05/14/19. documented in this encounter Plan of Treatment Not on file documented as of this encounter Visit Diagnoses Not on filedocumented in this encounter Additional Health Concerns Assessment Noted Time PHQ-9 Depression Total Score: 0 03/25/19 10:00 AM HOUSEKEEPING CLEANER documented as of this encounter Care Teams Crew Boss Relationship Specialty Start Date End Date Gayla Barker, GLOBAL CONSUMER SECTOR VICE PRESIDENT, CLEANING MAID [address] [place] [address] PCP - General Advanced Practice Nurse 03/25/19 documented as of this encounter
--- OUTSIDE RECORDS SUMMARY | 2024-02-24 19:48 | XMS_ITS | Encounter Summary ---
Author Organization [employer] Care Team Providers Care Mexican Food Cook Name Role Phone Gayla Barker APRN, CNP Primary Care Provider Encounter Details Date Type Department Care Team (Latest Contact Info) Description 05/23/2019 Travel Social History Tobacco Use Types Packs/Day [...] on file Legal Sex Female 10:27 AM ADMINISTRATIVE LIAISON Gender Identity Not on file Sexual Orientation [...] Total Score: 0 03/25/19 20 10:00 AM ADMINISTRATIVE LIAISON documented as of this encounter Care Teams Mexican Food Cook Relationship Specialty Start Date End Date Gayla Barker APRN, CNP [address] [place] [address] PCP - General Advanced Practice Nurse 03/25/19 documented as of this encounter
--- OUTSIDE RECORDS SUMMARY | 2024-02-24 19:48 | XMS_ITS | Encounter Summary ---
Author Organization [facility] Address [address] [place] [address] Phone Care Team Providers Care Service Observer Chief Name Role Phone Gayla Barker APRN, STAFFING DIRECTOR Primary Care Provider Reason for Visit * Reason Comments ED Follow-up f/u to cough, sob, d kianna, sores in her mouth Encounter Details Date Type Department Care Team (Late st Contact Info) Description 06/23/2019 1:[address] [facility] [place] [address] [place] [address] Gilmar De Paz, CARIDAD Rash and nonspecific skin eruption (Primary Dx); Systemic lupus erythematosus, unspecified SLE [...] on file Legal Sex Female 10:27 AM BARREL LEVELER Gender Identity Not on file Sexual Orientation Not on file COVID-19 Exposure Response Date Recorded In the last month, have you been in contact with someone who was confirmed or suspected to have Coronavirus / COVID-19? No / Unsure 06/19/2019 3:35 PM CDT documented as of this encounter Patient Instructions * Patient Instructions* Gilmar De Paz PAC - 06/23/2019 1:20 PM CDT Diagnoses and all orders for this visit: Rash and nonspecific skin eruption - please continue on Valtrex as prescribed. - discussed with patient that rash is not consistent with normal distribution of would is usually seen with shingles as it is crossing multiple dermatomes. - regardless as we are unable to visualize today continue on Valtrex may also use [id number] hydrocortisone cream for up to 2 weeks - if symptoms worsen or fail to improve please call office and schedule in- person visit. - general recommendations with shingles-keep areas covered and be sure to be cautious around women or elderly. As long as area is covered and you are not itching okay to return to work. - note for today. Systemic lupus erythematosus, unspecified SLE type, unspecified organ involvement status (HCC) - please follow-up with Rheumatology in regards to medication and management of joint pain * discussed with patient that she will need to follow up with PCP in regards to questions about MRI- memory, dizziness, headaches. - Conservative management was discussed, see AVS [...] documented in this encounter Progress Notes * Gilmar De Paz PAC - 06/23/2019 1:20 PM CDT Patient was assessed via video visit for a duration of 15 minutes. Patient verbally consented for this service to be performed and billed. HPI: Carito Rausch is a 29 y.o. female who presents for follow up from [facility] ED visit for rash and shingles. Patient has history of lupus, fibromyalgia, CKD, anemia. Patient was seen on 06/22/2019 due to rash, mouth sores, cough, shortness of breath x 2 days. Patient was was not found to have significant rash on exam but was diagnosed with shingles and started onValtrex due to immunosuppression from Lupus medications. Patient reports that she began having scalp tenderness and was getting headaches roughly 2 weeks ago but prior to ED visit notice some sores beginning in her mouth. Patient reports that since starting the Valtrex and magic mouthwash a sores in her mouth have improved but she continues to have pruritic rash on chest, buttocks, back. Patient reports that she was started on azathioprine for lupus but was taken off shortly after at her rheumatology visit due to their concern for this causing the shingles outbreak. Patient has had nonspecific symptoms of chest pain, shortness of breath and sore throat and she hasbeen tested for COVID-19 twice in the past month. Patient had elevated D-dimer in ED and therefore had a CT scan of her chest to rule out pulmonary embolism-this was negative. CBC essentially normal.Chest xray normal. Troponins negative. Patient also states that she has had dizziness and memory loss over the past few months. She was supposed to have an MRI of her brain done but this was prolonged due to scheduling and COVID-19. PROBLEM LIST: Patient Active Problem List Diagnosis ??? Herpes genitalis ??? Laceration of flexor muscle, fascia and tendon of right little finger at wrist and hand level, initial encounter ??? Pain in joint ??? Myalgia, unspecified site ??? Systemic lupus erythematosus (HCC) ??? Weakness ROS: Review of Systems Respiratory: Positive for shortness of breath (slight SOB). Cardiovascular: Positive for chest pain and palpitations. Chest pain and palpitations- she reports she has had in the past but seems to be slightly worse. Skin: Positive for itching and rash. Neurological: Positive for dizziness. Psychiatric/Behavioral: Positive for memory loss. ALLERGIES: Allergies Allergen Reactions ??? Medrol [Methylprednisolone] [...] for this visit. GENERAL EXAM: Physical Exam Nursing note reviewed. Constitutional: General: She is not in acute distress. Appearance: Normal appearance. She is not ill-appearing or toxic-appearing. Skin: Comments: Pt shows me area of chest and picture of buttocks (from phone). Very poor visualization due to video quality. Neurological: General: No focal deficit present. Mental Status: She is alert and oriented to person, place, and time. Psychiatric: Comments: Pt slightly anxious. TEST RESULTS: LABS/ RADIOLOGY REPORTS/ CONSULT NOTES REVIEWED. DIAGNOSIS, PLAN AND FOLLOW UP: Patient Instructions Diagnoses and all orders for this visit: Rash and nonspecific skin eruption - please continue on Valtrex as prescribed. - discussed with patient that rash is not consistent with normal distribution of would is usually seen with shingles as it is crossing multiple dermatomes. - regardless as we are unable to visualize today continue on Valtrex may also use [id number]-kcqewiq hydrocortisone cream for up to 2 weeks - if symptoms worsen or fail to improve please call office and schedule in- person visit. - general recommendations with shingles-keep areas covered and be sure to be cautious around women or elderly. As long as area is covered and you are not itching okay to return to work. - note for today. Systemic lupus erythematosus, unspecified SLE type, unspecified organ involvement status (HCC) - please follow-up with Rheumatology in regards to medication and management of joint pain * discussed with patient that she will need to follow up with PCP in regards to questions about MRI- memory, dizziness, headaches. - Conservative management was discussed, see AVS [...] corrections, as appropriate. Gilmar De Paz PA-C * Shaye Ramos CMA - 06/23/2019 1:20 PM CDT Carito Ivory Shalom is on telephone visit for ED Follow-up (f/u to cough, sob, dizzy, sores in her mouth ) . Medications and allergies reconciled with Carito Rausch. documented in this encounter Plan of Treatment Not on file documented as of this encounter Visit Diagnoses Diagnosis Rash and nonspecific skin eruption- Primary Rash and other nonspecific skin eruption Systemic lupus erythematosus, unspecified SLE type, unspecified organ involvement status (HCC) documented in this encounter Additional Health Concerns Assessment Noted Time PHQ-9 Depression Total Score: 0 03/25/19 20 10:00 AM BARREL LEVELER documented as of this encounter Care Teams Service Observer Chief Relationship Specialty Start Date End Date Gayla Barker, HEALTH EDUCATION COORDINATOR, STAFFING DIRECTOR [address] [place] [address] PCP - General Advanced Practice Nurse 03/25/19 documented as of this encounter
--- OUTSIDE RECORDS SUMMARY | 2024-02-24 19:49 | XMS_ITS | Encounter Summary ---
Author Organization [facility] Address [address] [place] [address] Phone Care Team Providers Care Theoretical Physics Teacher Name Role Phone Gayla Barker APRN, TESTING COORDINATOR Primary Care Provider Encounter Details Date Type Department Care Team (Latest Contact Info) Description 04/28/2019 5:20 PM CUTTER WET MACHINE Ancillary Procedure [facility] - [facility] - [place] [address] [place] [phone] Discharge Disposition: Discharged to home or Selfcare [...] on file Legal Sex Female 10:27 AM CUTTER WET MACHINE Gender Identity Not on file Sexual Orientation Not on file documented as of this encounter Plan of Treatment Not on file documented as of this encounter Procedures Procedure Name Priority Date/Time Associated Diagnosis Comments XR LUMBAR SPINE 2 OR 3 VIEWS Routine 04/28/2019 6:14 PM CUTTER WET MACHINE Chronic bilateral back pain, unspecified back location documented in this encounter Results * XR LUMBAR SPINE 2 OR 3 VIEWS (04/28/2019 6:14 PM CUTTER WET MACHINE) Anatomical Region Laterality Modality Spine, L-spine N/A Digital Radiogra phy 04/29/2019 9:33 AM CUTTER WET MACHINE Impressions 04/29/2019 9:36 AM CUTTER WET MACHINE IMPRESSION: ??Lumbar vertebral body heights and anterior posterior alignment is maintained. Narrative 04/29/2019 9:36 AM CUTTER WET MACHINE EXAM DESCRIPTION: ??XR LUMBAR SPINE 2 OR 3 VIEWS REASON FOR STUDY: ??Dorsalgia, unspecified. ??Pain after adjustment, duration of symptoms is 3 days TECHNIQUE: ??Three radiographic views acquired of the lumbar spine. COMPARISON: ??None. FINDINGS: ??ALIGNMENT: Anterior posterior alignment is maintained. VERTEBRAE: Lumbar vertebral body heights are maintained.Minimal facet arthropathy at L5-S1. DISCS: Relative preservation of the intervertebral disc heights. OTHER: Sacroiliac joints are symmetric. THIS IS AN ELECTRONICALLY VERIFIED FINAL REPORT 04/29/2019 9:33 AM - Electronically signed by Alan Lundy D.O. AP: AP D: ??04/29/2019 9:33 AM T: ??04/29/2019 9:33 AM Report ID: [id number] Reading Location: ??[id number] Procedure Note Alan Lundy DO - 04/29/2019 EXAM DESCRIPTION: XR LUMBAR SPINE 2 OR 3 VIEWS REASON FOR STUDY: Dorsalgia, unspecified. Pain after adjustment, duration of symptoms is 3 days TECHNIQUE: Three radiographic views acquired of the lumbar spine. COMPARISON: None. FINDINGS: ALIGNMENT: Anterior posterior alignment is maintained. VERTEBRAE: Lumbar vertebral body heights are maintained.Minimal facet arthropathy at L5-S1. DISCS: Relative preservation of the intervertebral disc heights. OTHER: Sacroiliac joints are symmetric. THIS IS AN ELECTRONICALLY VERIFIED FINAL REPORT 04/29/2019 9:33 AM - Electronically signed by Alan Lundy D.O. AP: AP Report ID: [id number] Reading Location: [id number] IMPRESSION: Lumbar vertebral body heights and anterior posterior alignment is maintained. Gayla Barker APRN, CNP IMG DIAGNOSTIC ORDERABL ES Final Result documented in this encounter Visit Diagnoses Not on filedocumented in this encounter Additional Health Concerns Assessment Noted Time PHQ-9 Depression Total Score: 0 03/25/19 20 10:00 AM CUTTER WET MACHINE documented as of this encounter Care Teams Theoretical Physics Teacher Relationship Specialty Start Date End Date Gayla Barker APRN, CNP [address] [place] [address] PCP - General Advanced Practice Nurse 03/25/19 documented as of this encounter
--- OUTSIDE RECORDS SUMMARY | 2024-02-24 19:49 | XMS_ITS | Encounter Summary ---
Author Organization [facility] Address [address] [place] [address] Phone Care Team Providers Care Pack Mule Worker Name Role Phone Gayla Barker APRN, CNP Primary Care Provider Reason for Visit * Reason Comments Urinary Frequency with vaginal odor, h s of bacterial vaginosis Encounter Details Date Type Department Care Team (Latest Contact Info) Description 04/01/2019 1:40 PM WHEEL ADJUSTER Urgent Care Visit [facility] [address] [place] [address] Gayla Barker APRN, GEOINT ANALYST [address] [place] [address] BV (bacterial vaginosis) (Primary Dx); Dysuria; Chest pain, unspecified type; Vaginal discharge; Systemic lupus erythematosus, unspecified SLE type, unspecified organ involvement status (HCC) Discharge Disposition: Discharged to home or Selfcare Social History Tobacco Use Types Packs/Day Years Used Date Smoking Tobacco: Never Smokeless Tobacco: Never Tobacco Cessation:Counseling Given: Yes Alcohol Use Standard Drinks/Week Comments Yes 0 (1 standard drink = 0.6 oz pur e alcohol) AUDIT-C Answer Date Recorded Frequency of Alcohol Consumption Monthly or less 03/25/2019 Average Number of Drinks Not on file 020 Frequency of Binge Drinking Not on file 02/27 PHQ-2 Answer Date Recorded PHQ-2 Score 0 03/25/2019 Comments Unknown Sex and Gender Information Value Date Recorded Sex Assigned at Not on file Legal Sex Female 10:27 AM WHEEL ADJUSTER Gender Identity Not on file Sexual Orientation Not on file documented as of this encounter Last Filed Vital Signs Vital Sign Reading Time Taken Comments Blood Pressure 108/62 04/01/2019 1:57 PM WHEEL ADJUSTER Pulse 98 04/01/2019 1:57 PM WHEEL ADJUSTER Temperature 36.7 ??C (98 ??F) 04/01/2019 1:57 PM WHEEL ADJUSTER Respiratory Rate - - Oxygen Saturation 98% 04/01/2019 1:57 PM WHEEL ADJUSTER Inhaled Oxygen Concentration - - Weight - - Height - - Body Mass Index - - documented in this encounter Patient Instructions * Patient Instructions* Gayla Barker APN, CNP - 04/01/2019 1:40 PM WHEEL ADJUSTER EKG today Flagyl 3x/day Silvadene cream 2x/day to finger Follow up with PCP as scheduled L ADJUSTER L ADJUSTER documented in this encounter Progress Notes * Ruma Max RMA - 04/01/2019 1:40 PM CST Carito Rausch complains of Urinary Frequency She complains of a genital odor. This is a new problem. Episode onset: 2 days ago. The problem occurs constantly. The problem is unchanged. The patient is experiencing no pain. Associated symptoms include discolored urine, frequency and urgency. The symptoms are aggravated by urinating. Past treatments include oral antibiotics. She is sexually active. She uses nothing for contraception. The patient's menstrual history has been regular. Her past medical history is significant for a UTI. Today's Review of Systems Genitourinary: Positive for frequency and urgency. L ADJUSTER * Khushbu Watters RN - 04/01/2019 1:40 PM CST Per order of Gayla BALDWIN CNP EKG obtained and patient tolerate well. L ADJUSTER * Gayla Barker APN, CNP - 04/01/2019 1:40 PM CST Subjective: Patient presented to prompt Care with complaints of vaginal discharge and dysuria. She had questions that she needed answers of such is weaning off the prednisone and starting the meloxicam. We discussed this and how she should go about weaning off the prednisone. She is to see a new rheumatologistbrooklynn Stevens in April. She reported that she is having left-sided chest pain that we will get a EKG to assess. She also has a sore on her right pointer finger that she states is not healing. Review of Systems Respiratory: Negative for shortness of breath. Cardiovascular: Positive for chest pain. Negative for palpitations. Gastrointestinal: Negative for constipation, diarrhea, nausea and vomiting. Genitourinary: Positive for dysuria and vaginal discharge. Musculoskeletal: Positive for arthralgias and myalgias. Neurological: Negative for dizziness and headaches. Psychiatric/Behavioral: Negative. Objective: Physical Exam Vitals signs and nursing note reviewed. Constitutional: Appearance: Normal appearance. She is normal weight. Cardiovascular: Rate and Rhythm: Normal rate and regular rhythm. Pulses: Normal pulses. Heart sounds: Normal heart sounds. Pulmonary: Effort: Pulmonary effort is normal. Breath sounds: Normal breath sounds. Musculoskeletal: Normal range of motion. Skin: General: Skin is warm and dry. Neurological: General: No focal deficit present. Mental Status: She is alert and oriented to person, place, and time. Mental status is at baseline. Psychiatric: Mood and Affect: Mood normal. Behavior: Behavior normal. Thought Content: Thought content normal. Judgment: Judgment normal. BP 108/62 (BP Location: Right Arm, BP Position: Sitting, BP Cuff Size: Regular) Pulse 98 Temp 98 ??F (36.7 ??C) (Temporal) LMP 03/18/2019 SpO2 98% Assessment and Plan See Diagnoses, Orders, Follow-up, and Instructions Encounter Diagnoses Name Primary? Dysuria ??? Chest pain, unspecified type ??? Vaginal discharge ??? BV (bacterial vaginosis) Yes ??? Systemic lupus erythematosus, unspecified SLE type, unspecified organ involvement status (HCC) EKG today Flagyl 3x/day Silvadene cream 2x/day to finger Follow up with PCP as scheduled Documentation for this visit on 04/01/2019 was completed using a template. I have seen and examinedthe patient. Everything documented was personally performed at this visit with the necessary additions, deletions and changes made as appropriate. Electronically signed by Gayla Barker, CLINICAL TRIALS SYSTEMS ADMINISTRATOR, GEOINT ANALYST at 04/01/2019 4:26 PM WHEEL ADJUSTER documented in this encounter Plan of Treatment Not on file documented as of this encounter Procedures Procedure Name Priority Date/Time Associated Diagnosis Comments EKG 12 LEAD Routine 04/01/2019 2:54 PM WHEEL ADJUSTER Chest pain, unspecified type POCT UA AUTOMATED W/O MICRO Routine 04/01/2019 1:50 PM WHEEL ADJUSTER Dysuria documented in this encounter Results * EKG 12 LEAD (04/01/2019 2:54 PM WHEEL ADJUSTER) Pathologist [facility] Ventricular Rate 85 BPM EXTERNAL EKG Atrial Rate 85 BPM EXTERNAL EKG P-R Interval 132 ms EXTERNAL EKG QRS Duration 82 ms EXTERNAL EKG Q-T Duration 366 ms EXTERNAL EKG QTC CALCULATION 435 ms EXTERNAL EKG P [place] 30 degrees EXTERNAL EKG R [place] 22 degrees EXTERNAL EKG T [place] 14 degrees EXTERNAL EKG 04/01/2019 2:54 PM WHEEL ADJUSTER Impressions EXTERNAL EKG - 04/09/2019 5:18 PM WHEEL ADJUSTER Normal sinus rhythm Normal ECG No previous ECGs available Confirmed by LEONEL QUEEN ([id number]) on 04/09/2019 5:18:37 PM Narrative Procedure Note Leonel Queen, - 04/09/2019 IMPRESSION: Normal sinus rhythm Normal ECG No previous ECGs available Confirmed by LEONEL QUEEN ([id number]) on 04/09/2019 5:18:37 PM us Gayla Barker APRN, GEOINT ANALYST IMG ECG ORDERABLES Briana narayan Result EXTERNAL EKG * (ABNORMAL) POCT UA AUTOMATED W/O MICRO (04/01/2019 1:50 PM WHEEL ADJUSTER) SPECIFIC GRAVITY 1.015 1.003 - 1.030 URINE PH 6.5 5.0 - 9.0 UR, LEUKOCYTES Tr (25 Murphy/uL)(A) Negative Murphy/uL UR, NITRITE Negative Negative UR, PROTEIN Negative Negative mg/dL UR, GLUCOSE Normal Normal mg/dL UR, KETONE Negative Negative mg/dL UR, UROBILINOGEN Normal Normal mg/dL UR, BILIRUBIN Negative Negative mg/dL UR. BLOOD Negative Negative URINALYSIS COLOR Yellow URINALYSIS CLARITY Slightly Cloudy Urine specimen (specimen) 04/01/2019 1:50 PM WHEEL ADJUSTER Chitra Kaur MANAGER MEDICAL AFFAIRS, GEOINT ANALYST POINT OF CARE [facility] (MANUAL) Final Result documented in this encounter Visit Diagnoses Diagnosis BV (bacterial vaginosis)- Primary Vaginitis and vulvovaginitis, unspecified Dysuria Chest pain, unspecified type Vaginal discharge Leukorrhea, not specified as infective Systemic lupus erythematosus, unspecified SLE type, unspecified organ involvement status (HCC) documented in this encounter Additional Health Concerns Assessment Noted Time PHQ-9 Depression Total Score: 0 03/25/19 20 10:00 AM WHEEL ADJUSTER documented as of this encounter Care Teams Pack Mule Worker Relationship Specialty Start Date End Date Gayla Barker, MANAGER MEDICAL AFFAIRS, GEOINT ANALYST [address] [place] [id number] PCP - General Advanced Practice Nurse 03/25/19 documented as of this encounter
--- OUTSIDE RECORDS SUMMARY | 2024-02-24 19:49 | XMS_ITS | Encounter Summary ---
Author Organization [facility] Address [address] [facility] [place] [address] Phone Care Team Providers Care Food Service Substitute Name Role Phone Gayla Barker APRN, CNP Primary Care Provider Reason for Referral * Consult, Test & Initiate Treatment (Routine) - Closed Specialty Diagnoses / Procedures Referred By Jud freeman Referred To Contact Family Practice Diagnoses Insurance coverage problems Gayla Barker APRN, CNP Phone: tel: fax: [facility] [employer] [address] [place] [address] Phone: tel: fax: Referral ID Status Reason Start Date Expiration Date Visits Re quested Visits Authorized [id number] Closed 04/28/2019 1 1 Scheduling Instructions Carito is being referred for no insurance. See below for Carito's current medications, allergies and problem list. Please contact patient for scheduling questions or concerns. CURRENT MEDS: Current Outpatient Medications: ALPRAZolam (XANAX) 0.25 MG Tablet, Take 1 Tab by mouth 3 times daily as needed for Anxiety., Disp: 30 Tab, Rfl: 0 clomiPHENE (CLOMID) 50 MG Tablet, Take 50 mg by mouth., Disp: , Rfl: ergocalciferol (VITAMIN D) 07434 UNIT Capsule, Take 1.25 mg by mouth once a week., Disp: , Rfl: folic acid (FOLVITE) 1 MG Tablet, Take 1 mg by mouth., Disp: , Rfl: hydroxychloroquine (PLAQUENIL) 200 MG Tablet, Take 1 Tab by mouth daily., Disp: 90 Tab, Rfl: 3 levETIRAcetam (KEPPRA) 500 MG Tablet, Take 1 Tab by mouth 2 times daily. (Patient not taking: Reported on 04/28/2019), Disp: 60 Tab, Rfl: 0 meloxicam (MOBIC) 15 MG Tablet, Take 1 Tab by mouth daily., Disp: 90 Tab, Rfl: 3 omeprazole (PRILOSEC) 20 MG CAPSULE DELAYED RELEASE, TK 1 C PO QD, Disp: , Rfl: predniSONE (DELTASONE) 10 MG Tablet, Take 15 mg by mouth daily., Disp: , Rfl: predniSONE (DELTASONE) 5 MG Tablet, TK 1 T PO QD, Disp: , Rfl: silver sulfADIAZINE (SILVADENE) 1 % Cream, Apply 2 times daily. Application Site: to finger 2x/day (Description and Location), Disp: 50 g, Rfl: 0 No current facility-administered medications for this visit. ALLERGIES: -- Medrol [Methylprednisolone] -- Anaphylaxis PROBLEM LIST: Patient Active Problem List: Herpes genitalis Laceration of flexor muscle, fascia and tendon of right little finger at wrist and hand level, initial encounter Pain in joint Myalgia, unspecified site Systemic lupus erythematosus (HCC) Weakness ERIES INSPECTOR * Radiology Services (Routine) - Closed Specialty Diagnoses / Procedures Referred By Jud freeman Referred To Contact Radiology Diagnoses Seizure (HCC) Procedures MRI BRAIN W/WO CONTRAST Gayla Barker APRN, CNP Phone: tel: fax: Referral ID Status Reason Start Date Expiration Date Visits Re quested Visits Authorized [id number] Closed 04/28/2019 1 1 ERIES INSPECTOR Reason for Visit * Reason Comments ED Follow-up lupus flare up// Joint Pain Joint Swelling Encounter Details Date Type Department Care Team (Late st Contact Info) Description 04/28/2019 11:45 AM FISHERIES INSPECTOR Office Visit [facility] [place] [address] [place] [phone] Gayla Barker, SCRAPER OPERATOR, WOOD CLUB NECK WHIPPER [address] [place] [address] Arthralgia, unspecified joint (Primary Dx); Arthralgia of both knees; Seizure (HCC); Insurance coverage problems; Nausea; Chest pain, unspecified type; Palpitations; Chronic bilateral back pain, unspecified back location; Muscle spasm Discharge Disposition: Discharged to home or Selfcare [...] on file Legal Sex Female 10:27 AM FISHERIES INSPECTOR Gender Identity Not on file Sexual Orientation Not on file COVID-19 Exposure Response Date Recorded In the last month, have you been in contact with someone who was confirmed or suspected to have Coronavirus / COVID-19? Yes 07/24/2019 11:41 AM CDT documented as of this encounter Last Filed Vital Signs Vital Sign Reading Time Taken Comments Blood Pressure 122/66 04/28/2019 11:28 AM FISHERIES INSPECTOR Pulse 89 04/28/2019 11:28 AM FISHERIES INSPECTOR Temperature 36.9 ??C (98.4 ??F) 04/28/2019 11:[address] Respiratory Rate 18 04/28/2019 11:28 AM FISHERIES INSPECTOR Oxygen Saturation 98% 04/28/2019 11:28 AM FISHERIES INSPECTOR Inhaled Oxygen Concentration - - Weight 74.7 kg (164 lb 9.6 oz) 04/28/2019 11:28 AM FISHERIES INSPECTOR Height 160 cm (5' 3 ) 04/28/2019 11:28 AM FISHERIES INSPECTOR Body Mass Index 29.16 04/28/2019 11:28 AM FISHERIES INSPECTOR documented in this encounter Patient Instructions * Patient Instructions* Gayla Barker, API ARCHITECT, WOOD CLUB NECK WHIPPER - 04/28/2019 11:45 AM FISHERIES INSPECTOR MRI brain - seizures toradol injection today test Continue prednisone Care management referral-Melissa will call Stress EKG Event monitor Follow in one month. Xray cervical, thoracic and lumbar spine ERIES INSPECTOR ERIES INSPECTOR ERIES INSPECTOR ERIES INSPECTOR documented in this encounter Progress Notes * Vivi Junior - 04/28/2019 11:45 AM CST Carito Rausch, 28 y.o., female is here for ED Follow-up (lupus flare up//) Medication Refills: Patient reports/denies need for medication refills. Orders Pended: no Requested Prescriptions No prescriptions requested or ordered in this encounter Home Medications Medication Sig Start Date End Date Taking? Authorizing Provider ALPRAZolam (XANAX) 0.25 MG Tablet Take 1 Tab by mouth 3 times daily as needed for Anxiety. 04/22/19 Yes Gayla Barker APN, CNP clomiPHENE (CLOMID) 50 MG Tablet Take 50 mg by mouth. 03/31/19 Yes ProviderIsis MD ergocalciferol (VITAMIN D) 68522 UNIT Capsule Take 1.25 mg by mouth once a week. Yes Emergency, Nurse, RN folic acid (FOLVITE) 1 MG Tablet Take 1 mg by mouth. 04/01/19 Yes ProviderIsis MD hydroxychloroquine (PLAQUENIL) 200 MG Tablet Take 1 Tab by mouth daily. 04/22/19 Yes Gayla Barker APN, CNP levETIRAcetam (KEPPRA) 500 MG Tablet Take 1 Tab by mouth 2 times daily. Patient not taking: Reported on 04/28/2019 04/07/19 Alton Valerio MD meloxicam (MOBIC) 15 MG Tablet Take 1 Tab by mouth daily. 04/01/19 Yes Gayla Barker APN, CNP omeprazole (PRILOSEC) 20 MG CAPSULE DELAYED RELEASE TK 1 C PO QD 03/06/19 Yes Provider, MD Isis predniSONE (DELTASONE) 10 MG Tablet Take 15 mg by mouth daily. 02/25/19 Yes ProviderIsis MD predniSONE (DELTASONE) 5 MG Tablet TK 1 T PO QD 03/07/19 Yes ProviderIsis MD silver sulfADIAZINE (SILVADENE) 1 % Cream Apply [...] occasionally ??? Drug use: Yes Types: Marijuana Smoking Cessation Counseling Given: no Health Care Maintenance: Health Maintenance Due Topic Date Due ??? Human Papillomavirus (HPV) Immunization (1 - Female 2-dose series) 05/11/2003 ??? Influenza Immunization (1) 10/27/2018 ??? DTaP/Tdap/Td Immunization (2 - Td) 12/29/2018 Orders Pended: no The following BPA's have been addressed with the patient today:flu/tdap ERIES INSPECTOR * Gayla Barker APN, CNP - 04/28/2019 11:45 AM CST Subjective: Patient presents for an ED follow-up from myalgias. She has been having myalgias and arthralgias for the last couple weeks that have been getting worse. She is taking the meloxicam and 12-,1/2 mg of prednisone daily. She states that her jaw hurts to where she can hardly open it large enough to takea bite out a sandwich. She is having back pain and went to chiropractor and he states that she had knots all up and down her back. She states that she had an MRI done several years ago that showed bulging discs. She states that she needs an MRI done for her seizures and has been unable to get that done. She is having joint swelling in multiple joints especially her hands. She states that she has f requent daily chest pains and never got a call to schedule her stress test. She has alternating constipation with diarrhea and frequent nausea. She is taking Clomid and they are trying to get . Advised her that this is probably not a good time for her to try to get until this lupusis managed well. She states that she does have visual disturbances and is going to have an eye testthat she has not had since being on the her 1 lupus medication. She has not had any seizures since the her ER visit. She has not been taking the Keppra. She does have frequent dizziness. She states that she is so fatigued that she can hardly get out of bed and has missed a lot of work and is in fear of losing her job. She has lost her insurance due to having to go part-time. Review of Systems Eyes: Positive for visual disturbance. Respiratory: Positive for shortness of breath. Cardiovascular: Positive for chest pain. Gastrointestinal: Positive for constipation, diarrhea and nausea. Negative for vomiting. Genitourinary: Negative. Musculoskeletal: Positive for arthralgias and joint swelling. Neurological: Positive for dizziness and seizures. Negative for headaches. Tingling. Psychiatric/Behavioral: The patient is nervous/anxious. Objective: Physical Exam Vitals signs and nursing note reviewed. Constitutional: Appearance: She is obese. She is ill-appearing. HENT: Mouth/Throat: Mouth: Mucous membranes are moist. Cardiovascular: Rate and Rhythm: Normal rate and regular rhythm. Pulses: Normal pulses. Heart sounds: Normal heart sounds. Pulmonary: Breath sounds: Normal breath sounds. Abdominal: General: Abdomen is flat. Bowel sounds are normal. There is no distension. Palpations: Abdomen is soft. Musculoskeletal: Normal range of motion. General: Swelling and tenderness (back) present. Thoracic back: She exhibits spasm. Skin: General: Skin is warm and dry. Coloration: Skin is pale. Neurological: General: No focal deficit present. Mental Status: She is alert and oriented to person, place, and time. Mental status is at baseline. Psychiatric: Mood and Affect: Mood normal. Behavior: Behavior normal. Thought Content: Thought content normal. Judgment: Judgment normal. BP 122/66 (BP Location: Right Arm, BP Position: Sitting, BP Cuff Size: Regular) Pulse 89 Temp 98.4 ??F (36.9 ??C) (Temporal) Resp 18 Ht 5' 3 (1.6 m) Wt 164 lb 9.6 oz (74.7 kg) LMP 03/18/2019 SpO2 98% BMI 29.16 kg/m?? Assessment and Plan See Diagnoses, Orders, Follow-up, and Instructions Encounter Diagnoses Name Primary? Arthralgia of both knees ??? Arthralgia, unspecified joint Yes ??? Seizure (HCC) ??? Insurance coverage problems ??? Nausea ??? Chest pain, unspecified type ??? Palpitations ??? Chronic bilateral back pain, unspecified back location ??? Muscle spasm MRI brain - seizures toradol injection today test Continue prednisone Care management referral-Melissa will call Stress EKG Event monitor Follow in one month. Xray cervical, thoracic and lumbar spine Chest xray Documentation for this visit on 04/28/2019 was completed using a template. I have seen and examinedthe patient. Everything documented was personally performed at this visit with the necessary additions, deletions and changes made as appropriate. ERIES INSPECTOR * Vivi Junior - 04/28/2019 11:45 AM CST Carito presents for one time injection of Toradol 60mg for diagnosis of myalgia per order of Gayla Barker MUSHROOM CULTIVATOR-BC dated 04/28/19. Patient tolerated injection well without incident. See Immunization activity for details. ERIES INSPECTOR documented in this encounter Miscellaneous Notes * Addendum Note - Vivi Junior - 04/28/2019 11:45 AM CSTAddended by: VIVI JUNIOR on: 07/28/2019 08:18 AM Modules accepted: Orders documented in this encounter Plan of Treatment Not on file documented as of this encounter Procedures Procedure Name Priority Date/Time Associated Diagnosis Comments XR CHEST 2 VIEWS Routine 04/28/2019 6:14 PM FISHERIES INSPECTOR Chest pain, unspecified type XR LUMBAR SPINE 2 OR 3 VIEWS Routine 04/28/2019 6:14 PM FISHERIES INSPECTOR Chronic bilateral back pain, unspecified back location XR THORACIC SPINE, COMPLETE 3 VIEWS Routine 04/28/2019 6:14 PM FISHERIES INSPECTOR Chronic bilateral back pain, unspecified back location XR CERVICAL SPINE MINIMUM 4 VIEWS (4 OR 5V) Routine 04/28/2019 6:13 PM FISHERIES INSPECTOR Chronic bilateral back pain, unspecified back location documented in this encounter Results * MRI BRAIN W/WO CONTRAST (06/25/2019 10:40 AM CDT) Anatomical Region Laterality Modality Head N/A Magnetic Resonan ce 06/26/2019 8:55 AM CDT Impressions 06/26/2019 9:02 AM CDT IMPRESSION: ?? 1. ??Mildly degraded by motion. ??No acute intracranial abnormality is identified. Narrative 06/26/2019 9:02 AM CDT EXAM DESCRIPTION: ??MRI BRAIN W/WO CONTRAST REASON FOR STUDY: ??New onset seizures for 6 months. TECHNIQUE: ??Multiplanar imaging includes noncontrast T1, T2, FLAIR, diffusion with ADC map and post contrast T1 sequences. Additional sequence(s) sensitive to blood products. ??Images stored on PACS. ?? CONTRAST TYPE/DOSE: ??15 cc ProHance injected via right antecubital vein COMPARISON: ??None. FINDINGS: ??There is image degradation due to motion. ?? CEREBRUM: No mass, mass effect or midline shift.No intracranial hemorrhage or blood degradation products are noted on the gradient echo sequence. ??There is no abnormal parenchymal enhancement. ?? There is a trans-mantle medullary vein seen within the posterior left frontal lobe without features of a developmental venous anomaly. ??The overlying cortex appears unremarkable. Coronal imaging of the mesial temporal lobes is unremarkable. ??There is no hippocampal atrophy or T2/FLAIR hyperintensity. ??No cortical thickening or temporal lobe mass. WHITE MATTER: Normal appearing white matter. POSTERIOR FOSSA: Brainstem and cerebellum appear unremarkable. ??No abnormal enhancement. DIFFUSION IMAGING: No cytotoxic edema. EXTRAAXIAL SPACES: No hemorrhage. ??No mass or abnormal enhancement. BRAIN VOLUME: Normal. ??No asymmetric lobar atrophy or findings of hydrocephalus. PITUITARY: Superior convex margin of the pituitary gland measuring 9 mm is considered within normal limits for a young female. VASCULATURE: Flow voids at the skull base are present. ORBITS: Unremarkable. PARANASAL SINUSES AND MASTOIDS: Sinuses are clear. ??Scant amount of fluid within the left mastoids. OTHER: No other significant finding. THIS IS AN ELECTRONICALLY VERIFIED FINAL REPORT 06/26/2019 8:55 AM - Electronically signed by Ezra Whitley D.O. : D: ??06/26/2019 8:55 AM T: ??06/26/2019 8:55 AM Report ID: [id number] Reading Location: ??[id number] Procedure Note Ezra Whitley, DO - 06/26/2019 EXAM DESCRIPTION: MRI BRAIN W/WO CONTRAST REASON FOR STUDY: New onset seizures for 6 months. TECHNIQUE: Multiplanar imaging includes noncontrast T1, T2, FLAIR, diffusion with ADC map and post contrast T1 sequences. Additional sequence(s) sensitive to blood products. Images stored on PACS. CONTRAST TYPE/DOSE: 15 cc ProHance injected via right antecubital vein COMPARISON: None. FINDINGS: There is image degradation due to motion. CEREBRUM: No mass, mass effect or midline shift.No intracranial hemorrhage or blood degradation products are noted on the gradient echo sequence. There is no abnormal parenchymal enhancement. There is a trans-mantle medullary vein seen within the posterior left frontal lobe without features of a developmental venous anomaly. The overlying cortex appears unremarkable. Coronal imaging of the mesial temporal lobes is unremarkable. There is no hippocampal atrophy or T2/FLAIR hyperintensity. No cortical thickening or temporal lobe mass. WHITE MATTER: Normal appearing white matter. POSTERIOR FOSSA: Brainstem and cerebellum appear unremarkable. No abnormal enhancement. DIFFUSION IMAGING: No cytotoxic edema. EXTRAAXIAL SPACES: No hemorrhage. No mass or abnormal enhancement. BRAIN VOLUME: Normal. No asymmetric lobar atrophy or findings of hydrocephalus. PITUITARY: Superior convex margin of the pituitary gland measuring 9 mm is considered within normal limits for a young female. VASCULATURE: Flow voids at the skull base are present. ORBITS: Unremarkable. PARANASAL SINUSES AND MASTOIDS: Sinuses are clear. Scant amount of fluid within the left mastoids. OTHER: No other significant finding. THIS IS AN ELECTRONICALLY VERIFIED FINAL REPORT 06/26/2019 8:55 AM - Electronically signed by Ezra Whitley D.O. : Report ID: [id number] Reading Location: [id number] IMPRESSION: 1. Mildly degraded by motion. No acute intracranial abnormality is identified. Gayla Barker APRN, CNP IMG MR ORDERABLES Final Result * PATIENT CARE MGMT EVAL REFERRAL (04/30/2019 1:00 PM FISHERIES INSPECTOR) Gayla Barker APRN, CNP OUTPT REFERRALS EXT/INT Final Result * XR CHEST 2 VIEWS (04/28/2019 6:14 PM FISHERIES INSPECTOR) Anatomical Region Laterality Modality Chest N/A Digital Radiogra phy 04/29/2019 9:23 AM FISHERIES INSPECTOR Impressions 04/29/2019 9:26 AM FISHERIES INSPECTOR IMPRESSION: ??The lungs are clear. Narrative 04/29/2019 9:26 AM FISHERIES INSPECTOR EXAM DESCRIPTION: ??XR CHEST 2 VIEWS REASON FOR STUDY: ??Chest pain, unspecified pain after adjustment, duration of symptoms is 3 days. TECHNIQUE: ??Frontal and lateral radiographic views of the chest acquired. COMPARISON: ??None. FINDINGS: ??LUNGS/PLEURA: No focal consolidation or pneumothorax. No pleural effusion. HEART/MEDIASTINUM: The heart is not enlarged. HARDWARE/LINES/TUBES: None. BONES: Without acute abnormality. THIS IS AN ELECTRONICALLY VERIFIED FINAL REPORT 04/29/2019 9:23 AM - Electronically signed by Alan Lundy D.O. AP: AP D: ??04/29/2019 9:23 AM T: ??04/29/2019 9:23 AM Report ID: [id number] Reading Location: ??[id number] Procedure Note Alan Lundy DO - 04/29/2019 EXAM DESCRIPTION: XR CHEST 2 VIEWS REASON FOR STUDY: Chest pain, unspecified pain after adjustment, duration of symptoms is 3 days. TECHNIQUE: Frontal and lateral radiographic views of the chest acquired. COMPARISON: None. FINDINGS: LUNGS/PLEURA: No focal consolidation or pneumothorax. No pleural effusion. HEART/MEDIASTINUM: The heart is not enlarged. HARDWARE/LINES/TUBES: None. BONES: Without acute abnormality. THIS IS AN ELECTRONICALLY VERIFIED FINAL REPORT 04/29/2019 9:23 AM - Electronically signed by Alan Lundy D.O. AP: AP Report ID: [id number] Reading Location: [id number] IMPRESSION: The lungs are clear. Gayla Barker APRN, HARSHA IMG DIAGNOSTIC ORDERABL ES Final Result * XR LUMBAR SPINE 2 OR 3 VIEWS (04/28/2019 6:14 PM FISHERIES INSPECTOR) Anatomical Region Laterality Modality Spine, L-spine N/A Digital Radiogra phy 04/29/2019 9:33 AM FISHERIES INSPECTOR Impressions 04/29/2019 9:36 AM FISHERIES INSPECTOR IMPRESSION: ??Lumbar vertebral body heights and anterior posterior alignment is maintained. Narrative 04/29/2019 9:36 AM FISHERIES INSPECTOR EXAM DESCRIPTION: ??XR LUMBAR SPINE 2 OR [...] AM T: ??04/29/2019 9:33 AM Report ID: [id number] Reading Location: ??[id number] Procedure Note Alan Lundy DO - 04/29/2019 [...] Alan Lundy D.O. AP: AP Report ID: [id number] Reading Location: [id number] IMPRESSION: Lumbar vertebral body heights and anterior posterior alignment is maintained. Gayla Barker APRN, WOOD CLUB NECK WHIPPER IMG DIAGNOSTIC ORDERABL ES Final Result * XR THORACIC SPINE, COMPLETE 3 VIEWS (04/28/2019 6:14 PM FISHERIES INSPECTOR) Anatomical Region Laterality Modality Spine, T-spine N/A Digital Radiogra phy 04/29/2019 9:31 AM FISHERIES INSPECTOR Impressions 04/29/2019 9:34 AM FISHERIES INSPECTOR IMPRESSION: ??Thoracic vertebral body heights and anterior posterior alignment is maintained. Narrative 04/29/2019 9:34 AM FISHERIES INSPECTOR EXAM DESCRIPTION: ??XR THORACIC SPINE, COMPLETE 3 VIEWS REASON FOR STUDY: ??Dorsalgia, unspecified TECHNIQUE: ??AP, lateral, and swimmers radiographic views acquired of the thoracic spine. COMPARISON: ??None. FINDINGS: ??ALIGNMENT: Anterior posterior alignment is maintained. VERTEBRAE: Thoracic vertebral body heights are maintained. DISCS: Relative preservation of the intervertebral disc heights. HARDWARE: None in the spine. THIS IS AN ELECTRONICALLY VERIFIED FINAL REPORT 04/29/2019 9:31 AM - Electronically signed by Alan Lundy D.O. AP: AP D: ??04/29/2019 9:31 AM T: ??04/29/2019 9:31 AM Report ID: [id number] Reading Location: ??[id number] Procedure Note Alan Lundy DO - 04/29/2019 EXAM DESCRIPTION: XR THORACIC SPINE, COMPLETE 3 VIEWS REASON FOR STUDY: Dorsalgia, unspecified TECHNIQUE: AP, lateral, and swimmers radiographic views acquired of the thoracic spine. COMPARISON: None. FINDINGS: ALIGNMENT: Anterior posterior alignment is maintained. VERTEBRAE: Thoracic vertebral body heights are maintained. DISCS: Relative preservation of the intervertebral disc heights. HARDWARE: None in the spine. THIS IS AN ELECTRONICALLY VERIFIED FINAL REPORT 04/29/2019 9:31 AM - Electronically signed by Alan Lundy D.O. AP: AP Report ID: [id number] Reading Location: [id number] IMPRESSION: Thoracic vertebral body heights and anterior posterior alignment is maintained. us Gayla Barker SCRAPER OPERATOR, WOOD CLUB NECK WHIPPER IMG DIAGNOSTIC ORDERABL ES Final Result * XR CERVICAL SPINE MINIMUM 4 VIEWS (4 OR 5V) (04/28/2019 6:13 PM FISHERIES INSPECTOR) Anatomical Region Laterality Modality Spine, C-spine N/A Digital Radiogra phy 04/29/2019 9:22 AM FISHERIES INSPECTOR Impressions 04/29/2019 9:25 AM FISHERIES INSPECTOR IMPRESSION: ??Cervical vertebral body heights and anterior posterior alignment is maintained. Narrative 04/29/2019 9:25 AM FISHERIES INSPECTOR EXAM DESCRIPTION: ?? XR CERVICAL SPINE MINIMUM 4 VIEWS (4 OR 5V) REASON FOR STUDY: ??Dorsalgia, unspecified. ??Pain down the entire spine after adjustment, duration of symptoms is 3 days. TECHNIQUE: ??Five radiographic views acquired of the cervical spine. COMPARISON: ??None FINDINGS: ??ALIGNMENT: Straightening of the normal cervical lordosis may be related to patient's positioning. ??Anterior posterior alignment is maintained. VERTEBRAE: Cervical vertebral body heights are maintained.Facet joints remain anatomic. DISCS: Preservation of the intervertebral disc heights. FORAMINA: Suboptimally evaluated due to patient's positioning, no high-grade osseous neural foraminal narrowing. HARDWARE: None in the spine. THIS IS AN ELECTRONICALLY VERIFIED FINAL REPORT 04/29/2019 9:22 AM - Electronically signed by Alan Lundy D.O. AP: AP D: ??04/29/2019 9:22 AM T: ??04/29/2019 9:22 AM Report ID: [id number] Reading Location: ??[id number] Procedure Note Alan Lundy DO - 04/29/2019 EXAM DESCRIPTION: XR CERVICAL SPINE MINIMUM 4 VIEWS (4 OR 5V) REASON FOR STUDY: Dorsalgia, unspecified. Pain down the entire spine after adjustment, duration of symptoms is 3 days. TECHNIQUE: Five radiographic views acquired of the cervical spine. COMPARISON: None FINDINGS: ALIGNMENT: Straightening of the normal cervical lordosis may be related to patient's positioning. Anterior posterior alignment is maintained. VERTEBRAE: Cervical vertebral body heights are maintained.Facet joints remain anatomic. DISCS: Preservation of the intervertebral disc heights. FORAMINA: Suboptimally evaluated due to patient's positioning, no high-grade osseous neural foraminal narrowing. HARDWARE: None in the spine. THIS IS AN ELECTRONICALLY VERIFIED FINAL REPORT 04/29/2019 9:22 AM - Electronically signed by Alan Lundy D.O. AP: AP Report ID: [id number] Reading Location: [id number] IMPRESSION: Cervical vertebral body heights and anterior posterior alignment is maintained. Gayla Barker APRN, HARSHA IMG DIAGNOSTIC ORDERABL ES Final Result documented in this encounter Visit Diagnoses Diagnosis Arthralgia, unspecified joint- Primary Arthralgia of both knees Seizure (HCC) Other convulsions Insurance coverage problems Nausea Nausea alone Chest pain, unspecified type Palpitations Chronic bilateral back pain, unspecified back location Muscle spasm Spasm of muscle documented in this encounter Administered Medications Administered Medications Medication Order MAR Action Action Date Dose Rate Site Toradol Per 60mg Intramuscular Given 04/28/2019 60 mg Right Hip documented in this encounter Additional Health Concerns Infection Onset Date Last Indicated Resolved Time C. difficile Rule-Out 07/13/2019 07/13/20192019 12:30 PM CDT Assessment Noted Time PHQ-9 Depression Total Score: 0 03/25/19 20 10:00 AM FISHERIES INSPECTOR documented as of this encounter Care Teams Food Service Substitute Relationship Specialty Start Date End Date Gayla Barker APRN, WOOD CLUB NECK WHIPPER [address] [place] [address] PCP - General Advanced Practice Nurse 03/25/19 documented as of this encounter
--- OUTSIDE RECORDS SUMMARY | 2024-02-24 19:49 | XMS_ITS | Encounter Summary ---
Author Organization [facility] Address [address] [facility] [place] [address] Phone Care Team Providers Care Geospatial Scientist Name Role Phone Gayla Barker APRN, HARSHA Primary Care Provider Reason for Visit * Reason Onset Date Comments Results 03/31/2019 Encounter Details Date Type Department Care Team (Late st Contact Info) Description 03/31/2019 Telephone [facility] [place] [address] [place] [address] Gayla Barker APRN, FORMULATION TECHNICIAN [address] [place] [address] Results Social History Tobacco Use [...] on file Legal Sex Female 10:27 AM FIXED ROUTE BUS OPERATOR Gender Identity Not on file Sexual Orientation Not on file documented as of this encounter Miscellaneous Notes * Telephone Encounter - Leti Gusman RN - 03/31/2019 2:08 PM FIXED ROUTE BUS OPERATOR Phoned patient with lab results. Patient aware and verbalized understanding. No questions for automatic typewriter inspector. Patient does state she was not fasting for this lab, feels this is the cause for elevated triglycerides. Routing as FYI. D ROUTE BUS OPERATOR * Telephone Encounter - Leti Gusman RN - 03/31/2019 2:08 PM FIXED ROUTE BUS OPERATOR ----- Message from Gayla Barker APN, FORMULATION TECHNICIAN sent at 03/28/2019 4:48 PM FIXED ROUTE BUS OPERATOR ----- Lipid panel was pretty good other than triglycerides were mildly elevated decrease animal fats increase vegetables and exercise. D ROUTE BUS OPERATOR documented in this encounter Plan of Treatment Not on file documented as of this encounter Visit Diagnoses Not on filedocumented in this encounter Additional Health Concerns Assessment Noted Time PHQ-9 Depression Total Score: 0 03/25/19 20 10:00 AM FIXED ROUTE BUS OPERATOR documented as of this encounter Care Teams Geospatial Scientist Relationship Specialty Start Date End Date Gayla Barker APRN, FORMULATION TECHNICIAN [address] [place] [address] PCP - General Advanced Practice Nurse 03/25/19 documented as of this encounter
--- OUTSIDE RECORDS SUMMARY | 2024-02-24 19:49 | XMS_ITS | Encounter Summary ---
Author Organization [employer] Care Team Providers Care Trench Shovel Operator Name Role Phone Gayla Barker APRN, CNP Primary Care Provider Encounter Details Date Type Department Care Team (Latest Contact Info) Description 03/25/2019 Travel Social History Tobacco Use Types Packs/Day [...] on file Legal Sex Female 10:27 AM GLAZIER HELPER Gender Identity Not on file Sexual Orientation Not on file documented as of this encounter Functional Status documented as of this encounter Plan of Treatment Not on file documented as of this encounter Visit Diagnoses Not on filedocumented in this encounter Additional Health Concerns Assessment Noted Time PHQ-9 Depression Total Score: 0 03/25/19 20 10:00 AM GLAZIER HELPER documented as of this encounter Care Teams Trench Shovel Operator Relationship Specialty Start Date End Date Gayla Barker APRN, CNP [address] [place] [address] PCP - General Advanced Practice Nurse 03/25/19 documented as of this encounter
--- OUTSIDE RECORDS SUMMARY | 2024-02-24 19:49 | XMS_ITS | Encounter Summary ---
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
--- OUTSIDE RECORDS SUMMARY | 2024-02-24 19:49 | XMS_ITS | Encounter Summary ---
Author Organization [facility] Address [address] [place] [address] Phone Care Team Providers Care Tableman Name Role Phone Gayla Barker APRN, SCIENCE EDUCATION PROFESSOR Primary Care Provider Reason for Visit * Reason Onset Date Comments Medication Refill 04/22/2019 Encounter Details Date Type Department Care Team (Late st Contact Info) Description 04/22/[facility] [address] [place], [place] [id number] Gayla Barker, ANNIE, SCIENCE EDUCATION PROFESSOR [address] [place] [address] Medication Refill Social History Tobacco [...] file Legal Sex Female 10:27 AM DIRECTOR BUSINESS Gender Identity Not on file Sexual Orientation Not on file documented as of this encounter Miscellaneous Notes * Telephone Encounter - Gayla Patel RN - 04/22/2019 12:07 PM DIRECTOR BUSINESS Medication refused due to duplicate request. Reviewed to ensure medication was already refilled at same pharmacy currently requesting refill. CTOR BUSINESS * Telephone Encounter - Kristie Yee, RN - 04/22/2019 10:35 AM DIRECTOR BUSINESS ----- Message from Minal Egan sent at 04/22/2019 9:16 AM DIRECTOR BUSINESS ----- RFC: FAX REFILL REQUEST Name of medication needed? Xanax .25mg Take one tablet twice daily hydroxychloroquine (PLAQUENIL) 200 MG TabletTake one tablet daily Pharmacy [facility] 30 or 90 day supply? 30 Provider Gayla Barker CTOR BUSINESS documented in this encounter Plan of Treatment Not on file documented as of this encounter Visit Diagnoses Not on filedocumented in this encounter Additional Health Concerns Assessment Noted Time PHQ-9 Depression Total Score: 0 03/25/19 10:00 AM DIRECTOR BUSINESS documented as of this encounter Care Teams Tableman Relationship Specialty Start Date End Date Gayla Barker, GENERAL PEDIATRICIAN, SCIENCE EDUCATION PROFESSOR [address] [place] [address] PCP - General Advanced Practice Nurse 03/25/19 documented as of this encounter
--- OUTSIDE RECORDS SUMMARY | 2024-02-24 19:49 | XMS_ITS | Encounter Summary ---
Author Organization [facility] Address [address] [facility] [address] Phone Care Team Providers Care Manager Insurance Name Role Phone Gayla Barker APRN, HARSHA Primary Care Provider Reason for Visit * Reason Onset Date Comments Results 03/31/2019 Encounter Details Date Type Department Care Team (Late st Contact Info) Description 03/31/2019 Telephone [facility] [place] [address] [place] [address] Gayla Barker APRN, SAFETY INSTRUCTION POLICE OFFICER [address] [place] [address] Results Social History Tobacco Use [...] file Legal Sex Female 10:27 AM MEDICAL RECORDS FIELD TECHNICIAN Gender Identity Not on file Sexual Orientation Not on file documented as of this encounter Miscellaneous Notes * Telephone Encounter - Leti Gusman RN - 03/31/2019 2:09 PM MEDICAL RECORDS FIELD TECHNICIAN Phoned patient with lab results. Patient aware and verbalized understanding. No questions for investment underwriter. CAL RECORDS FIELD TECHNICIAN * Telephone Encounter - Leti Gusman RN - 03/31/2019 2:07 PM MEDICAL RECORDS FIELD TECHNICIAN ----- Message from Gayla Barker APN, SAFETY INSTRUCTION POLICE OFFICER sent at 03/28/2019 4:47 PM MEDICAL RECORDS FIELD TECHNICIAN ----- Rheumatoid factors normal uric acid was normal HLA B27 was normal, CCP IgG was normal these are allother autoimmune does disorders. CAL RECORDS FIELD TECHNICIAN documented in this encounter Plan of Treatment Not on file documented as of this encounter Visit Diagnoses Not on filedocumented in this encounter Additional Health Concerns Assessment Noted Time PHQ-9 Depression Total Score: 0 03/25/19 10:00 AM MEDICAL RECORDS FIELD TECHNICIAN documented as of this encounter Care Teams Manager Insurance Relationship Specialty Start Date End Date Gayla Barker, ANNIE, SAFETY INSTRUCTION POLICE OFFICER [address] [place] [address] PCP - General Advanced Practice Nurse 03/25/19 documented as of this encounter
--- OUTSIDE RECORDS SUMMARY | 2024-02-24 19:49 | XMS_ITS | Encounter Summary ---
Author Organization [facility] Address [address] [facility] [place] [address] Phone Care Team Providers Care Roving Technician Name Role Phone Lexii Barker APRN, HARSHA Primary Care Provider Reason for Visit * Reason Onset Date Comments Results 03/31/2019 Encounter Details Date Type Department Care Team (Late st Contact Info) Description 03/31/2019 Telephone [facility] [place] [address] [place] [address] Lexii Barker APRN, CIRCLE BEVELER [address] [place] [address] Results Social History Tobacco Use [...] file Legal Sex Female 10:27 AM SENIOR INFORMATION SECURITY ENGINEER Gender Identity Not on file Sexual Orientation Not on file documented as of this encounter Miscellaneous Notes * Telephone Encounter - Kristie Yee RN - 04/01/2019 11:18 AM SENIOR INFORMATION SECURITY ENGINEER Patient notified and verbalized understanding. How would you like patient to wean off the prednisone. Patient states she has quite a few questionsand asking if lexii will call her personally. OR INFORMATION SECURITY ENGINEER * Telephone Encounter - Lexii Barker APN, CNP - 04/01/2019 7:49 AM SENIOR INFORMATION SECURITY ENGINEER I put an order in from meloxicam. You can wean off of the prednisone and see if we can do it with meloxicam. OR INFORMATION SECURITY ENGINEER * Addendum Note - Lexii Barker APN, CNP - 04/01/2019 7:49 AM CSTAddended by: LEXII BARKER on: 04/01/2019 07:49 AM Modules accepted: Orders OR INFORMATION SECURITY ENGINEER * Telephone Encounter - Leti Gusman RN - 03/31/2019 4:33 PM SENIOR INFORMATION SECURITY ENGINEER Patient is aware and verbalized understanding. OR INFORMATION SECURITY ENGINEER * Telephone Encounter - Leti Gusman RN - 03/31/2019 2:30 PM SENIOR INFORMATION SECURITY ENGINEER Per MELINDA White, Okay for work note. Keep appointment as scheduled in June 2019. No medication changes at this time. Work note pended. OR INFORMATION SECURITY ENGINEER * Telephone Encounter - Leti Gusman RN - 03/31/2019 2:12 PM SENIOR INFORMATION SECURITY ENGINEER Phoned patient with lab results. Patient aware and verbalized understanding. Patient is wanting excuse for work to cover today and tomorrow as she is having a really bad flare and can't go to work. Also she wants to know if PCP will prescribe a medication so the prednisone can be discontinued. Has appointment with [facility] in june 2019. Wanting to know if PCP feels this is appropriate. OR INFORMATION SECURITY ENGINEER * Telephone Encounter - Leti Gusman RN - 03/31/2019 2:11 PM SENIOR INFORMATION SECURITY ENGINEER ----- Message from Lexii Barker APN, CNP sent at 03/28/2019 4:45 PM SENIOR INFORMATION SECURITY ENGINEER ----- Respiratory allergy panel normal. Double stranded DNA antibody was elevated and chromatin antibody was also elevated both indicative of lupus. PARTS ANALYST antibody was also elevated again indicative of lupus. BARAK was positive again indicative of lupus. Lyme antibody negative. Celiac panel was negative. C reactive protein was elevated at 6.93. Sed rate negative. Vitamin B12 was normal. Vitamin-D was in normal range. OR INFORMATION SECURITY ENGINEER documented in this encounter Plan of Treatment Not on file documented as of this encounter Visit Diagnoses Not on filedocumented in this encounter Additional Health Concerns Assessment Noted Time PHQ-9 Depression Total Score: 0 03/25/19 10:00 AM SENIOR INFORMATION SECURITY ENGINEER documented as of this encounter Care Teams Roving Technician Relationship Specialty Start Date End Date Lexii Barker, ANNIE, CIRCLE BEVELER [address] [place] [address] PCP - General Advanced Practice Nurse 03/25/19 documented as of this encounter
--- OUTSIDE RECORDS SUMMARY | 2024-02-24 19:49 | XMS_ITS | Encounter Summary ---
Author Organization [employer] Care Team Providers Care Cardiopulmonary Technician And Eeg Tech Name Role Phone Gayla Barker APRN, CNP Primary Care Provider Encounter Details Date Type Department Care Team (Latest Contact Info) Description 04/24/2019 Travel Social History Tobacco Use Types Packs/Day [...] on file Legal Sex Female 10:27 AM SOCIAL WORK ASSISTANT Gender Identity Not on file Sexual Orientation Not on file documented as of this encounter Plan of Treatment Not on file documented as of this encounter Visit Diagnoses Not on filedocumented in this encounter Additional Health Concerns Assessment Noted Time PHQ-9 Depression Total Score: 0 03/25/19 20 10:00 AM SOCIAL WORK ASSISTANT documented as of this encounter Care Teams Cardiopulmonary Technician And Eeg Tech Relationship Specialty Start Date End Date Gayla Barker APRN, CNP [address] [place] [address] PCP - General Advanced Practice Nurse 03/25/19 documented as of this encounter
--- OUTSIDE RECORDS SUMMARY | 2024-02-24 19:49 | XMS_ITS | Encounter Summary ---
Author Organization [employer] Care Team Providers Care Clean Rice Broker Name Role Phone Gayla Barker APRN, CNP Primary Care Provider Encounter Details Date Type Department Care Team (Latest Contact Info) Description 04/12/2019 Travel Social History Tobacco Use Types Packs/Day [...] on file Legal Sex Female 10:27 AM SASH MAKER Gender Identity Not on file Sexual Orientation Not on file documented as of this encounter Plan of Treatment Not on file documented as of this encounter Visit Diagnoses Not on filedocumented in this encounter Additional Health Concerns Assessment Noted Time PHQ-9 Depression Total Score: 0 03/25/19 20 10:00 AM SASH MAKER documented as of this encounter Care Teams Clean Rice Broker Relationship Specialty Start Date End Date Gayla Barker APRN, CNP [address] [place] [address] PCP - General Advanced Practice Nurse 03/25/19 documented as of this encounter
--- OUTSIDE RECORDS SUMMARY | 2024-02-24 19:49 | XMS_ITS | Encounter Summary ---
Author Organization [facility] Address [address] [place] [address] Phone Care Team Providers Care Drag Car Racer Name Role Phone Gayla Barker APRN, CUPROUS CHLORIDE HELPER Primary Care Provider Reason for Visit * Reason Comments Pain Encounter Details Date Type Department Care Team ([facility] Contact Info) Description 04/24/2019 10:34 AM SYSTEM ADMINISTRATOR - 04/24/2019 12:37 PM SYSTEM ADMINISTRATOR Emergency [facility] Emergency [address] [place] [address] Faizan Loco, PAC [address] [place] [address] Myalgia Discharge Disposition: Discharged to home or Selfcare [...] on file Legal Sex Female 10:27 AM SYSTEM ADMINISTRATOR Gender Identity Not on file Sexual Orientation Not on file documented as of this encounter Last Filed Vital Signs Vital Sign Reading Time Taken Comments Blood Pressure 129/83 04/24/2019 12:35 PM SYSTEM ADMINISTRATOR Pulse 79 04/24/2019 12:35 PM SYSTEM ADMINISTRATOR Temperature 36.3 ??C (97.3 ??F) 04/24/2019 10:[address] Respiratory Rate 16 04/24/2019 12:35 PM SYSTEM ADMINISTRATOR Oxygen Saturation 100% 04/24/2019 12:35 PM SYSTEM ADMINISTRATOR Inhaled Oxygen Concentration - - Weight 68 kg (150 lb) 04/24/2019 10:29 AM SYSTEM ADMINISTRATOR Height 160 cm (5' 3 ) 04/24/2019 10:29 AM SYSTEM ADMINISTRATOR Body Mass Index 26.57 04/24/2019 10:29 AM SYSTEM ADMINISTRATOR documented in this encounter Discharge Instructions * Attachments The following attachments cannot be sent through Care Everywhere. * Myalgias (Nauruan) documented in this encounter Medications at Time of Discharge ALPRAZolam (XANAX) 0.25 MG Tablet Take 1 Tab by mouth 3 times daily as needed for Anxiety. 30 Tab 04/22/2019 0 clomiPHENE (CLOMID) 50 MG Tablet Take 50 mg by mouth. 03/31/2019 0 ergocalciferol (VITAMIN D) 37629 UNIT Capsule Take 1.25 mg by mouth once a week. 0 folic acid (FOLVITE) 1 MG Tablet Take 1 mg by mouth. 04/01/2019 0 hydroxychloroquine (PLAQUENIL) 200 MG Tablet Take 1 Tab by mouth daily. 90 Tab 3 04/22/2019 0 levETIRAcetam (KEPPRA) 500 MG Tablet Take 1 Tab by mouth 2 times daily. 60 Tab 04/07/2019 0 meloxicam (MOBIC) 15 MG Tablet Take 1 Tab by mouth daily. 90 Tab 3 04/01/2019 0 omeprazole (PRILOSEC) 20 MG CAPSULE DELAYED RELEASE TK 1 C PO QD 03/06/2019 0 predniSONE (DELTASONE) 10 MG Tablet Take 15 mg by mouth daily. 02/25/2019 0 predniSONE (DELTASONE) 5 MG Tablet TK 1 T PO QD 03/07/2019 0 silver sulfADIAZINE (SILVADENE) 1 % Cream Apply 2 times daily. Application Site: to finger 2x/day (Description and Location) 50 g 04/01/2019 0 documented as of this encounter ED Notes * Katharina Burleson RN - 04/24/2019 12:36 PM CST Patient discharged. Discharge instructions and patient educational material reviewed with patient; questions and concerns addressed; patient verbalizes understanding, using teach back. Patient ambulated to exit with steady gait. EM ADMINISTRATOR * Katharina Burleson RN - 04/24/2019 12:15 PM CST Patient resting in recliner. Updated on status in ER. Call light within reach. EM ADMINISTRATOR * Faizan Loco PAC - 04/24/2019 12:01 PM CST Chief Complaint Patient presents with ??? Pain Carito Rausch is a 28 y.o. female who presents to the ED c/o increasing pain onset two weeks ago. The patient has a pmhx of Lupus, and her primary pain complaints are in the neck, jaw, and upper back. She has no chest pain or SOB, and she was seen here two weeks ago for seizure like activity. She is currently waiting to have an EEG performed and she is going to follow up with Dr. Francisco in the future. She is not taking her Keppra as prescribed as Dr. Francisco told the patient to abstain from taking the Keppra until her MRI and EEG are completed. She has had no seizure-like activity sincethis visit. She was recently increased on her Prednisone medication to 20 mg daily for her Lupus lik e symptoms by a physician she sees at [facility] for her Lupus. She has a PCP appointment today, and she is requesting to have her labs drawn today. These labs will be used to follow up with her PCP. No current facility-administered medications for this encounter. Current Outpatient Medications Medication Sig Dispense Refill ??? ALPRAZolam (XANAX) 0.25 MG Tablet Take 1 Tab by mouth 3 times daily as needed for Anxiety. 30 Tab 0 ??? clomiPHENE (CLOMID) 50 MG Tablet Take 50 mg by mouth. ??? ergocalciferol (VITAMIN D) 28328 UNIT Capsule Take 1.25 mg by mouth once a week. ??? folic acid (FOLVITE) 1 MG Tablet Take 1 mg by mouth. ??? hydroxychloroquine (PLAQUENIL) 200 MG Tablet Take 1 Tab by mouth daily. 90 Tab 3 ??? levETIRAcetam (KEPPRA) 500 MG Tablet Take 1 Tab by mouth 2 times daily. 60 Tab 0 ??? meloxicam (MOBIC) 15 MG Tablet Take 1 Tab by mouth daily. 90 Tab 3 ??? omeprazole (PRILOSEC) 20 MG CAPSULE DELAYED RELEASE TK 1 C PO QD ??? predniSONE (DELTASONE) 10 MG Tablet Take 15 mg by mouth daily. ??? predniSONE (DELTASONE) 5 MG Tablet TK 1 T PO QD ??? silver sulfADIAZINE (SILVADENE) 1 % Cream [...] file Gets together: Not on file Attends jainism service: Not on file Active member of [...] History Narrative ??? Not on file BP 124/80 Pulse 89 Temp 97.3 ??F (36.3 ??C) (Tympanic) Resp 16 Ht 5' 3 (1.6 m) Wt 150 lb(68 kg) LMP 03/04/2019 SpO2 100% No BMI 26.57 kg/m?? Review of Systems HENT: The patient is having jaw pain. Respiratory: Negative for shortness of breath. Cardiovascular: Negative for chest pain. Musculoskeletal: Positive for back pain (upper) and neck pain. Physical Exam Constitutional: She is oriented to person, place, and time. She appears well- developed and well-nourished. No distress. Body mass index is 26.57 kg/m??. The patient is obese. HENT: Head: Normocephalic and atraumatic. Right Ear: External ear normal. Left Ear: External ear normal. Nose: Nose normal. Mouth/Throat: Oropharynx is clear and moist. No oropharyngeal exudate. Eyes: Pupils are equal, round, and reactive to light. Conjunctivae and EOM are normal. Right eye exhibits no discharge. Left eye exhibits no discharge. Neck: Normal range of motion. Neck supple. [...] of motion. General: No tenderness or edema. Comments: The patient is having muscle spasms to the neck musculature, primarily on the left side. Lymphadenopathy: She has no cervical adenopathy. Neurological: She is alert and oriented to person, place, and time. She has normal reflexes. No cranial nerve deficit. She exhibits normal muscle tone. Coordination normal. GCS eye subscore is 4. GCSverbal subscore is 5. GCS motor subscore is 6. Skin: Skin is warm and dry. No rash noted. She is not diaphoretic. No erythema. No pallor. Psychiatric: She has a normal mood and affect. Her behavior is normal. Thought content normal. Nursing note and vitals reviewed. Procedures MDM Labs Reviewed CMP (COMPREHENSIVE METABOLIC PANEL) - Abnormal; Notable for the following components: Result Value CREATININE, BLOOD 0.56 (*) BUN/CREATININE RATIO 34 (*) All other components within normal limits URINALYSIS REFLEX IF INDICATED BY ABNORMAL RESULTS - Abnormal; Notable for the following components: PROTEIN, RANDOM URINE 30 mg/dL (*) BACTERIA, URINE Few (*) All other components within normal limits CBC WITH AUTO DIFFERENTIAL - Abnormal; Notable for the following components: HEMOGLOBIN (HGB) 11.7 (*) MCHC 30.8 (*) MPV 9.5 (*) NEUTROPHILS 83.4 (*) LYMPHOCYTES 10.7 (*) ABSOLUTE LYMPHOCYTES 0.69 (*) All other components within normal limits MONO TEST (INFECTIOUS MONONUCLEOSIS) - Normal CULTURE, GRP A STREPTOCOCCUS, CULT ONLY COMPLETE BLOOD COUNT (CBC) WITH DIFF Narrative: The following orders were created for panel order Complete Blood Count (CBC) WITH Diff. Procedure Abnormality Status --------- ------ CBC with Auto Differential[[id number]] Abnormal Final result Please view results for these tests on the individual orders. POCT INFLUENZA A & B POCT URINE HCG () POCT GROUP A STREP SCREEN RAPID Urinalysis Reflex if Indicated by Abnormal Results Final Result Complete Blood Count (CBC) WITH Diff Final Result CMP (Comprehensive Metabolic Panel) Final Result Windsor Test(Infectious Windsor) [id number] Final Result Reviewed: previous chart, nursing note and vitals Reviewed previous: labs Interpretation: labs Clinical Impression 1. Myalgia 12:01. At bedside for initial evaluation. By signing my name below, I, Jackson Arceo, attest that this documentation has been prepared under the direction and in the presence of Faizan CAGLE. Reviewed labs and imaging with patient. She is requesting discharge at this for PCP appointment at 1400 today. The patient remained stable throughout their ED [...] return, and the need for follow up. Electronically Signed: Libertad Raya, 04/24/19 12:21 PM I, Faizan Gunter, personally performed the services described in this documentation. All medical record entries made by the libertad were at my direction and in my presence. I have reviewed the chartand discharge instructions and agree that the record reflects my personal performance and is accurate and complete. Faizan Loco, 04/24/19 12:21 PM Cosigned by Danny Woo at 04/25/2019 8:07 PM SYSTEM ADMINISTRATOR EM ADMINISTRATOR EM ADMINISTRATOR * Katharina Burleson RN - 04/24/2019 11:18 AM CST TSERING Tristan at bedside for exam. EM ADMINISTRATOR * Katharina Burleson RN - 04/24/2019 10:50 AM CST Patient to ER with c/o right upper back pain radiating into head worsening last night. Patient states she has been having seizure activity the last couple of months and is concerned she may have another seizure. Patient denies recent fevers. Denies vomiting but reports decreased appetite. Patient alert and oriented x 4. Respirations unlabored. Patient placed on gambling monitor and SPO2 monitor. Assessment as noted. EM ADMINISTRATOR * Remedios Stevenson RN - 04/24/2019 10:32 AM CST Pt to triage with c/o generalized body aching x a few days. Pt states she was seen here recently for seizure activity and states she feels like she may have one again. Pt states she was instructed byher PCP to not start taking the Keppra that was prescribed here at last visit. Pt states her skin is sensitive and reports severe back, neck, and head pain. Denies fever or cough. EM ADMINISTRATOR documented in this encounter Plan of Treatment Not on file documented as of this encounter Procedures Procedure Name Priority Date/Time Associated Diagnosis Comments URINALYSIS REFLEX IF INDICATED BY ABNORMAL RESULTS STAT 04/24/2019 11:52 AM SYSTEM ADMINISTRATOR POCT GROUP A STREP SCREEN RAPID STAT 04/24/2019 11:45 AM SYSTEM ADMINISTRATOR CULTURE, GRP A STREPTOCOCCUS, CULT ONLY STAT 04/24/2019 11:45 AM SYSTEM ADMINISTRATOR POCT URINE HCG () STAT 04/24/2019 11:38 AM SYSTEM ADMINISTRATOR CBC WITH AUTO DIFFERENTIAL STAT 04/24/2019 11:37 AM SYSTEM ADMINISTRATOR MONO TEST (INFECTIOUS MONONUCLEOSIS) STAT 04/24/2019 11:37 AM SYSTEM ADMINISTRATOR CMP (COMPREHENSIVE METABOLIC PANEL) STAT 04/24/2019 11:37 AM SYSTEM ADMINISTRATOR COMPLETE BLOOD COUNT (CBC) WITH DIFF STAT 04/24/2019 11:37 AM SYSTEM ADMINISTRATOR POCT INFLUENZA A & B STAT 04/24/2019 11:05 AM SYSTEM ADMINISTRATOR documented in this encounter Results * (ABNORMAL) Urinalysis Reflex if Indicated by Abnormal Results (04/24/2019 11:52 AM SYSTEM ADMINISTRATOR) SPECIFIC GRAVITY 1.025 1.003 - 1.030 04/24/2019 12:12 PM SYSTEM ADMINISTRATOR [facility] URINE PH 6.0 5.0 - 9.0 04/24/2019 12:12 PM SYSTEM ADMINISTRATOR [facility] WBC ESTERASE Negative Negative 04/24/2019 12:12 PM SYSTEM ADMINISTRATOR [facility] NITRITE Negative Negative 04/24/2019 12:12 PM SYSTEM ADMINISTRATOR [facility] PROTEIN, RANDOM URINE 30 mg/dL(A) Negative 04/24/2019 12:[address] [facility] URINE GLUCOSE, QUAL Negative Negative 04/24/2019 12:12 PM SYSTEM ADMINISTRATOR [facility] URINE KETONES Negative Negative 04/24/2019 12:12 PM SYSTEM ADMINISTRATOR [facility] UROBILINOGEN Normal Normal mg/dL 04/24/2019 12:12 PM SYSTEM ADMINISTRATOR [facility] URINE BILIRUBIN Negative Negative 0 12:12 PM SYSTEM ADMINISTRATOR [facility] URINE BLOOD Negative Negative pierre/ul 04/24/2019 12:[address] [facility] URINALYSIS COLOR Yellow 04/24/19 20 12:[address] [facility] URINALYSIS CLARITY Clear 04/24/2019 12:12 PM SYSTEM ADMINISTRATOR [facility] WBC (Urine) 0-5 Negative, 0-5 /hpf 04/24/2019 12:[address] [facility] URINE RBC'S Negative Negative, 0-2 /hpf 04/24/2019 12:[address] [facility] EPITHELIAL CELLS Occasional /lpf 04/24/19 20 12:[address] [facility] BACTERIA, URINE Few(A) Negative /hpf 04/24/2019 12:[address] [facility] Urine specimen (specimen) URINE SPECIMEN / Unknown Non-Phlebotomy Collection / Unknown 04/24/2019 11:52 AM SYSTEM ADMINISTRATOR 04/24/2019 11:53 AM SYSTEM ADMINISTRATOR us Faizan Loco PAC URINE ORDERABLES Fin al Result [facility] [address] [place] [address] * Culture, Grp A Streptococcus, Cult Only (04/24/2019 11:45 AM SYSTEM ADMINISTRATOR) CULTURE RESULTS NO STREP PYOGENES (GROUP A BETA HEMOLYTIC STREP) ISOLATED AFTER 2 DAYS 04/26/2019 3:23 PM SYSTEM ADMINISTRATOR [facility] Culture of specimen by commercial kit (procedure) SPECIMEN FROM THROAT / Unknown Non-Phlebotomy Collection / Unknown 04/24/2019 11:45 AM SYSTEM ADMINISTRATOR 04/24/2019 12:03 PM SYSTEM ADMINISTRATOR Faizan MCLEAN MICROBIOLOGY - GENER AL ORDERABLES Final Result [facility] [address] [place] [address], * POCT Group A Strep Screen Rapid (04/24/2019 11:45 AM SYSTEM ADMINISTRATOR) POC STREP SCRN Presumptive negative POC STREP SCREEN CONTROL [employer] Laborer Pass 04/24/2019 11:4 5 AM SYSTEM ADMINISTRATOR Faizan Loco [facility] POINT OF CARE TESTIN G (MANUAL) Final Result * POCT Urine HCG () (04/24/2019 11:38 AM SYSTEM ADMINISTRATOR) POC URINE Negative POC URINE CONTROL [employer] Laborer Pass Urine specimen (specimen) 04/24/2019 11:38 AM SYSTEM ADMINISTRATOR Faizan Loco [facility] POINT OF CARE TESTIN G (MANUAL) Final Result * Windsor Test(Infectious Windsor) [id number] (04/24/2019 11:37 AM SYSTEM ADMINISTRATOR) MONO TEST Negative Negative 04/24/2019 12:15 PM SYSTEM ADMINISTRATOR [facility] Blood specimen (specimen) Venipuncture / Unknown 04/24/2019 11:37 AM SYSTEM ADMINISTRATOR 04/24/2019 11:51 AM SYSTEM ADMINISTRATOR Faizan Loco PAC IMMUNOLOGY ORDERABLE S Final Result [facility] [address] [place] [address] * (ABNORMAL) CBC with Auto Differential (04/24/2019 11:37 AM SYSTEM ADMINISTRATOR) [facility] WBC 6.46 4.00 - 12.00 10(3)/mcL 04/24/2019 11:55 AM SYSTEM ADMINISTRATOR [facility] RBC 4.11 3.80 - 5.30 10(6)/[facility] 04/24/2019 11:55 AM [facility] HEMOGLOBIN (HGB) 11.7(L) 12.0 - 15.8 g/dL 04/24/2019 11:[address] [facility] HEMATOCRIT (HCT) 38.0 36.0 - 47.0 % 04/24/2019 11:[address] [facility] MCV 92.5 82.0 - 96.0 fL 04/24/2019 11:[address] [facility] MCH 28.5 26.0 - 34.0 pg 04/24/2019 11:55 AM [facility] MCHC 30.8(L) 31.0 - 36.0 g/dL 04/24/2019 11:[address] [facility] PLATELET COUNT 283 140 - 440 10(3)/[facility] 04/24/2019 11:[address] [facility] RDW 13.9 11.8 - 15.5 % 04/24/2019 11:[address] [facility] MPV 9.5(L) 9.7 - 12.4 fL 04/24/2019 11:[address] [facility] NEUTROPHILS 83.4(H) 47.0 - 73.0 % 04/24/2019 11:[address] [facility] LYMPHOCYTES 10.7(L) 18.0 - 42.0 % 04/24/2019 11:[address] [facility] MONOCYTES 5.0 4.0 - 12.0 % 04/24/2019 11:[address] [facility] EOSINOPHILS 0.6 0.0 - 5.0 % 04/24/2019 11:55 AM SYSTEM ADMINISTRATOR [facility] BASOPHILS 0.3 0.0 - 1.0 % 04/24/2019 11:55 AM SYSTEM ADMINISTRATOR [facility] ABSOLUTE NEUTROPHILS 5.39 1.60 - 7.70 10(3)/[facility] 04/24/2019 11:[address] [facility] ABSOLUTE LYMPHOCYTES 0.69(L) 1.30 - 3.20 10(3)/[facility] 04/24/2019 11:55 AM SYSTEM ADMINISTRATOR [facility] ABSOLUTE MONOCYTES 0.32 0.20 - 1.00 10(3)/[facility] 04/24/2019 11:55 AM SYSTEM ADMINISTRATOR [facility] ABSOLUTE EOSINOPHIL 0.04 0.00 - 0.40 10(3)/[facility] 04/24/2019 11:[address] [facility] ABSOLUTE BASOPHILS 0.02 0.00 - 0.10 10(3)/[facility] 04/24/2019 11:[address] [facility] NRBC PER 100 WBC 0 04/24/19 20 11:[address] [facility] Blood specimen (specimen) Venipuncture / Unknown 04/24/2019 11:37 AM SYSTEM ADMINISTRATOR 04/24/2019 11:50 AM [facility] us Faizan Loco PAC HEMATOLOGY ORDERABLE S Final Result [facility] [address] [place] [address] * (ABNORMAL) CMP (Comprehensive Metabolic Panel) (04/24/2019 11:37 AM SYSTEM ADMINISTRATOR) SODIUM 140 136 - 144 mmol/L 04/24/2019 12:[address] [facility] POTASSIUM 3.8 3.5 - 5.1 mmol/L 04/24/2019 12:[address] [facility] CHLORIDE 101 100 - 110 mmol/L 04/24/2019 12:[address] [facility] CO2, VENOUS 25 22 - 32 mmol/L 04/24/2019 12:[address] [facility] ANION GAP 17.8 8.0 - 20.0 mmol/L 04/24/2019 12:[address] [facility] GLUCOSE 88 70 - 99 mg/dL 04/24/2019 12:[address] [facility] BUN 19 6 - 20 mg/dL 04/24/2019 12:[address] [facility] CREATININE, BLOOD 0.56(L) 0.60 - 1.10 mg/dL 04/24/2019 12:[address] [facility] BUN/CREATININE RATIO 34(H) 12 - 20 ratio 04/24/2019 12:[address] [facility] TOTAL PROTEIN 7.3 6.0 - 8.3 g/dL 04/24/2019 12:[address] [facility] ALBUMIN 4.2 3.5 - 5.2 g/dL 04/24/2019 12:[address] [facility] Comment: The colormetric methods used for the determination of Albumin may lead to falsely elevated test results in patients suffering from renal failure or insufficiency due to interference with other proteins. A/G RATIO 1.4 1.0 - 2.0 04/24/2019 12:[address] [facility] CALCIUM 9.3 8.9 - 10.3 mg/dL 04/24/2019 12:[address] [facility] T BILI 0.3 <=1.2 mg/dL 04/24/2019 12:[address] [facility] SGOT (AST) 12 <=32 U/L 04/24/2019 12:[address] [facility] SGPT (ALT) 11 <=33 U/L 04/24/2019 12:[address] [facility] ALKALINE PHOSPHATASE 37 35 - 105 U/L 04/24/2019 12:[address] [facility] GFR, EST. NONAFRICAN >60 >=60 04/24/2019 12:[address] [facility] GFR, EST. >60 >=60 020 12:[address] [facility] Comment: Creatinine Clearance is the preferred criteria for selecting drug dose adjustments in renally impaired patients. ??The GFR is provided as additional pertinent clinical information. GFR is reported in mL/min/1.73 sq m. Blood specimen (specimen) Venipuncture / Unknown 04/24/2019 11:37 AM SYSTEM ADMINISTRATOR 04/24/2019 11:50 AM SYSTEM ADMINISTRATOR Faizan Loco PAC CHEMISTRY ORDERABLES Final Result [facility] [address] [place] [address] * POCT Influenza A & B (04/24/2019 11:05 AM SYSTEM ADMINISTRATOR) POC INFLU A Presumptive negative Group A POC INFLU B Presumptive negative Group B POC INFLUENZA CONTROL [employer] Pass 04/24/2019 11:0 5 AM SYSTEM ADMINISTRATOR Faizan Loco PAC POINT OF CARE TESTIN G (MANUAL) Final Result documented in this encounter Visit Diagnoses Diagnosis Myalgia- Primary Mylagia and myositis, unspecified documented in this encounter Additional Health Concerns Assessment Noted Time PHQ-9 Depression Total Score: 0 03/25/19 20 10:00 AM SYSTEM ADMINISTRATOR documented as of this encounter Care Teams Drag Car Racer Relationship Specialty Start Date End Date Gayla Barker, DRAPERY SEAMSTRESS, CUPROUS CHLORIDE HELPER [address] [place] [address] PCP - General Advanced Practice Nurse 03/25/19 documented as of this encounter
--- OUTSIDE RECORDS SUMMARY | 2024-02-24 19:49 | XMS_ITS | Encounter Summary ---
Author Organization [facility] Address [address] [place] [address] Phone Care Team Providers Care Reports Developer Name Role Phone Gayla Barker APRN, CNP Primary Care Provider Reason for Referral * Other (Routine) - Closed Specialty Diagnoses / Procedures Referred By Jud freeman Referred To Contact Pulmonology Diagnoses Shortness of breath Procedures COMPLETE PFT W + W/O BRONCHODILATOR Gayla Barker APRN, HARSHA Phone: tel: fax: Referral ID Status Reason Start Date Expiration Date Visits Re quested Visits Authorized [id number] Closed 03/25/2019 1 1 NER INTEGRATION PLANNER Reason for Visit * Other (Routine) - Closed Specialty Diagnoses / Procedures Referred By Jud freeman Referred To Contact Pulmonology Diagnoses Shortness of breath Procedures COMPLETE PFT W + W/O BRONCHODILATOR Gayla Barker APRN, HARSHA Phone: tel: fax: Referral ID Status Reason Start Date Expiration Date Visits Re quested Visits Authorized [id number] Closed 03/25/2019 1 1 Encounter Details Date Type Department Care Team (Latest Contact Info) Description 03/26/2019 11:11 AM PARTNER INTEGRATION PLANNER - 03/26/2019 11:59 PM PARTNER INTEGRATION PLANNER Hospital [facility] [address] [place] [address] Gayla Barker, SIDING APPLICATOR, ENGINE MECHANIC [address] [place] [id number] Discharge Disposition: Discharged to home or Selfcare [...] on file Legal Sex Female 10:27 AM PARTNER INTEGRATION PLANNER Gender Identity Not on file Sexual Orientation Not on file documented as of this encounter Medications at Time of Discharge ALPRAZolam (XANAX) 0.25 MG Tablet Take 0.25 mg by mouth. 04/22/2019 hydroxychloroquin e (PLAQUENIL) 200 MG Tablet Take 200 mg by mouth. 01/29/2019 04/22/2019 omeprazole (PRILOSEC) 20 MG CAPSULE DELAYED RELEASE TK 1 C PO QD 03/06/2019 06/05/2019 predniSONE (DELTASONE) 10 MG Tablet Take 15 mg by mouth daily. 02/25/2019 05/08/2019 predniSONE (DELTASONE) 5 MG Tablet TK 1 T PO QD 03/07/2019 05/08/2019 documented as of this encounter Procedure Notes * Kelechi Bauer MD - 03/26/2019 11:59 PM CST PULMONARY TEST Admit: 03/26/2019 CSN: [id number] Dictating Provider: [id number] Kelechi Bauer MD DATE OF STUDY: 03/26/2019 REFERRING: Gayla Barker APN DATE OF TESTING: March 26, 2019 FVC is 84% predicted. FEV1 is 94% predicted. FEV1/FVC ratio is 98. There is no post bronchodilator spirometry done. Total lung capacity 70% predicted. Upper airways resistance is increased. Diffusion capacity corrected for lung volume is minimally reduced. Good patient effort was seen. Flow volume loop is consistent with spirometry. No previous studies to compare. INTERPRETATION: No evidence of airways obstruction. Minimal airways restriction. Diffusion capacity is minimally reduced. NA/drd /[id number] NER INTEGRATION PLANNER documented in this encounter Plan of Treatment Not on file documented as of this encounter Procedures Procedure Name Priority Date/Time Associated Diagnosis Comments COMPLETE PFT W + W/O BRONCHODILATOR Routine 03/26/2019 11:32 AM PARTNER INTEGRATION PLANNER Shortness of breath documented in this encounter Results * Complete PFT W + W/O Bronchodilator (03/26/2019 11:32 AM PARTNER INTEGRATION PLANNER) FVC 2.75 L FVC %Predicted 84 % FVC Post-Bronchodila tor n/a (L) FEV1 2.69 L FEV1 %Predicted 94 % FEV1 Post-Bronchodila tor n/a (L) FEV1/FVC 98 % FEF 25-75% 141 L/sec TLC 3.08 L TLC %Predicted 70 (Pleth) (L) RV 0.23 L RV %Predicted 20 (Pleth) (L) Airway Resistance 2.32 cmH2O/L/s DLCO 17.8 ml/min/mmH g DLCO %Predicted 69 (ml/min/mm Hg) Gayla Barker APRN, CNP PFT ORDERABLES Final R esult documented in this encounter Visit Diagnoses Diagnosis Shortness of breath documented in this encounter Additional Health Concerns Assessment Noted Time PHQ-9 Depression Total Score: 0 03/25/19 10:00 AM PARTNER INTEGRATION PLANNER documented as of this encounter Care Teams Reports Developer Relationship Specialty Start Date End Date Gayla Barker APRN, CNP [address] [place] [address] PCP - General Advanced Practice Nurse 03/25/19 documented as of this encounter
--- OUTSIDE RECORDS SUMMARY | 2024-02-24 19:49 | XMS_ITS | Encounter Summary ---
Author Organization [facility] Address [address] [place] [address] Phone Care Team Providers Care Scallop Cutter Name Role Phone Gayla Barker APRN, NETBACKUP ADMIN Primary Care Provider Encounter Details Date Type Department Care Team (Latest Contact Info) Description 04/28/2019 5:15 PM DEEP TISSUE MASSAGE THERAPIST Ancillary Procedure [facility] - MEDICAL IMAGING - [place] [address] [place] [phone] Discharge Disposition: Discharged to home or Selfcare [...] on file Legal Sex Female 10:27 AM DEEP TISSUE MASSAGE THERAPIST Gender Identity Not on file Sexual Orientation Not on file documented as of this encounter Plan of Treatment Not on file documented as of this encounter Procedures Procedure Name Priority Date/Time Associated Diagnosis Comments XR THORACIC SPINE, COMPLETE 3 VIEWS Routine 04/28/2019 6:14 PM DEEP TISSUE MASSAGE THERAPIST Chronic bilateral back pain, unspecified back location documented in this encounter Results * XR THORACIC SPINE, COMPLETE 3 VIEWS (04/28/2019 6:14 PM DEEP TISSUE MASSAGE THERAPIST) Anatomical Region Laterality Modality Spine, T-spine N/A Digital Radiogra phy 04/29/2019 9:31 AM DEEP TISSUE MASSAGE THERAPIST Impressions 04/29/2019 9:34 AM DEEP TISSUE MASSAGE THERAPIST IMPRESSION: ??Thoracic vertebral body heights and anterior posterior alignment is maintained. Narrative 04/29/2019 9:34 AM DEEP TISSUE MASSAGE THERAPIST EXAM DESCRIPTION: ??XR THORACIC SPINE, COMPLETE 3 [...] AM T: ??04/29/2019 9:31 AM Report ID: [id number] Reading Location: ??[id number] Procedure Note Alan Lundy DO - 04/29/2019 [...] Alan Lundy D.O. AP: AP Report ID: [id number] Reading Location: [id number] IMPRESSION: Thoracic vertebral body heights and anterior posterior alignment is maintained. Gayla Barker APRN, NETBACKUP ADMIN IMG DIAGNOSTIC ORDERABL ES Final Result documented in this encounter Visit Diagnoses Not on filedocumented in this encounter Additional Health Concerns Assessment Noted Time PHQ-9 Depression Total Score: 0 03/25/19 10:00 AM DEEP TISSUE MASSAGE THERAPIST documented as of this encounter Care Teams Scallop Cutter Relationship Specialty Start Date End Date Gayla Barker, BDC MANAGER, NETBACKUP ADMIN [address] [place] [address] PCP - General Advanced Practice Nurse 03/25/19 documented as of this encounter
--- OUTSIDE RECORDS SUMMARY | 2024-02-24 19:49 | XMS_ITS | Encounter Summary ---
Author Organization [facility] Address [address] [place] [address] Phone Care Team Providers Care Returned Goods Repairer Name Role Phone Gayla Barker APRN, DIRECTOR INTERNAL COMMUNICATIONS Primary Care Provider Encounter Details Date Type Department Care Team (Latest Contact Info) Description 04/28/2019 5:30 PM REVENUE CYCLE SPECIALIST Ancillary Procedure [facility] - MEDICAL [facility] - [place] [address] [place] [phone] Discharge Disposition: Discharged to home or Selfcare [...] on file Legal Sex Female 10:27 AM REVENUE CYCLE SPECIALIST Gender Identity Not on file Sexual Orientation Not on file documented as of this encounter Plan of Treatment Not on file documented as of this encounter Procedures Procedure Name Priority Date/Time Associated Diagnosis Comments XR CHEST 2 VIEWS Routine 04/28/2019 6:14 PM REVENUE CYCLE SPECIALIST Chest pain, unspecified type documented in this encounter Results * XR CHEST 2 VIEWS (04/28/2019 6:14 PM REVENUE CYCLE SPECIALIST) Anatomical Region Laterality Modality Chest N/A Digital Radiogra phy 04/29/2019 9:23 AM REVENUE CYCLE SPECIALIST Impressions 04/29/2019 9:26 AM REVENUE CYCLE SPECIALIST IMPRESSION: ??The lungs are clear. Narrative 04/29/2019 9:26 AM REVENUE CYCLE SPECIALIST EXAM DESCRIPTION: ??XR CHEST 2 VIEWS REASON [...] AM T: ??04/29/2019 9:23 AM Report ID: [id number] Reading Location: ??[id number] Procedure Note Alan Lundy DO - 04/29/2019 [...] Alan Lundy D.O. AP: AP Report ID: [id number] Reading Location: [id number] IMPRESSION: The lungs are clear. Gayla Barker APRN, DIRECTOR INTERNAL COMMUNICATIONS IMG DIAGNOSTIC ORDERABL ES Final Result documented in this encounter Visit Diagnoses Not on filedocumented in this encounter Additional Health Concerns Assessment Noted Time PHQ-9 Depression Total Score: 0 03/25/19 10:00 AM REVENUE CYCLE SPECIALIST documented as of this encounter Care Teams Returned Goods Repairer Relationship Specialty Start Date End Date Gayla Barker, SEWER MAINTENANCE SUPERVISOR, DIRECTOR INTERNAL COMMUNICATIONS [address] [place] [address] PCP - General Advanced Practice Nurse 03/25/19 documented as of this encounter
--- OUTSIDE RECORDS SUMMARY | 2024-02-24 19:49 | XMS_ITS | Encounter Summary ---
Author Organization [facility] Address [address] [place] [address] Phone Care Team Providers Care Director Of Property Management Name Role Phone Gayal Barker APRN, CNP Primary Care Provider Encounter Details Date Type Department Care Team (Late st Contact Info) Description 04/28/2019 1:00 PM PLANER CHAIN OFFBEARER Lab [address] [phone] Lab, [facility] Nausea Discharge Disposition: Discharged to home or Selfcare [...] on file Legal Sex Female 10:27 AM PLANER CHAIN OFFBEARER Gender Identity Not on file Sexual Orientation Not on file documented as of this encounter Progress Notes * Najma Simpson RMA - 04/28/2019 1:00 PM CST Carito presents for lab draw per order of Gayla Barker APN, CNP dated 04/28/19. Specimen collected from right antecubital without incident. sah ER CHAIN OFFBEARER documented in this encounter Miscellaneous Notes * Addendum Note - Najma Simpson RMA - 04/28/2019 1:00 PM CSTAddended by: NAJMA SIMPSON on: 04/28/2019 01:06 PM Modules accepted: Orders ER CHAIN OFFBEARER documented in this encounter Plan of Treatment Not on file documented as of this encounter Procedures Procedure Name Priority Date/Time Associated Diagnosis Comments HCG BETA SUBUNIT SERUM QUANT STAT 04/28/2019 1:06 PM PLANER CHAIN OFFBEARER Nausea documented in this encounter Results * HCG BETA SUBUNIT SERUM QUANT (04/28/2019 1:06 PM PLANER CHAIN OFFBEARER) HCG BETA SUBUNIT, QUANT <0.50 <=5.00 mIU/mL 04/28/2019 2:10 PM PLANER CHAIN OFFBEARER [facility] Blood specimen (specimen) Venipuncture / Unknown 04/28/2019 1:06 PM PLANER CHAIN OFFBEARER 04/28/2019 1:06 PM PLANER CHAIN OFFBEARER Narrative [facility] - 04/28/2019 2:10 PM PLANER CHAIN OFFBEARER HCG Interpretive Reference Ranges Wks of : References Ranges 4 wks [phone] wks [phone] wks [phone] 7 wks [id number] 8 wks [id number] 9 wks [id number] 10 wks [id number] 14 wks [id number] 15 wks [id number] 16 wks [id number] 17 wks [id number] 18 wks [phone] 19 wks [phone] Non- Female: 0-4 us Gayla Barker APRN, CNP CHEMISTRY ORDERABLES Fi nal Result [facility] [address] [place] [address] documented in this encounter Visit Diagnoses Diagnosis Nausea Nausea alone documented in this encounter Additional Health Concerns Assessment Noted Time PHQ-9 Depression Total Score: 0 03/25/19 10:00 AM PLANER CHAIN OFFBEARER documented as of this encounter Care Teams Director Of Property Management Relationship Specialty Start Date End Date Gayla Barker, PARTS AND SERVICE MANAGER, STEAM PRESS OPERATOR [address] [place] [address] PCP - General Advanced Practice Nurse 03/25/19 documented as of this encounter
--- OUTSIDE RECORDS SUMMARY | 2024-02-24 19:49 | XMS_ITS | Encounter Summary ---
Author Organization [facility] Address [address] [place] [address] Phone Care Team Providers Care Border Measurer And Cutter Name Role Phone Gayla Barker APRN, INSULATION PROFESSIONAL Primary Care Provider Reason for Visit * Reason Onset Date Comments Pain 04/28/2019 Encounter Details Date Type Department Care Team (Late st Contact Info) Description 04/28/2019 Telephone [facility] [address] [place] [address] Gayla Barker, ANNIE, INSULATION PROFESSIONAL [address] [place] [address] Pain Social History Tobacco Use Types Packs/Day [...] on file Legal Sex Female 10:27 AM SOOT BLOWER Gender Identity Not on file Sexual Orientation Not on file documented as of this encounter Miscellaneous Notes * Telephone Encounter - Sara Wasserman RN - 04/28/2019 10:06 AM CST S-Patient is calling and has been having a Lupus Flare up and has not called PCP B-because she has no insurance for 1 month. A-Patient states the flare up has every joint in her body sore. Patient states that it even hurts to talk due to joint pain in her jaw. Patient has missed a lot of work for this flare up and is afraid she is going to lose her job. Patient states she will self pay and is at the point where she needs to be seen because the flare up is limiting her movement. R-Patient was made an ED F/U for today 04/27 at 11:45. Patient was transferred to billing and was going to inquire about sisters leann. Just an FYI BLOWER documented in this encounter Plan of Treatment Not on file documented as of this encounter Visit Diagnoses Not on filedocumented in this encounter Additional Health Concerns Assessment Noted Time PHQ-9 Depression Total Score: 0 03/25/19 20 10:00 AM SOOT BLOWER documented as of this encounter Care Teams Border Measurer And Cutter Relationship Specialty Start Date End Date Gayla Barker, MEDICAL AIDE, INSULATION PROFESSIONAL [address] [place] [address] PCP - General Advanced Practice Nurse 03/25/19 documented as of this encounter
--- OUTSIDE RECORDS SUMMARY | 2024-02-24 19:49 | XMS_ITS | Encounter Summary ---
Author Organization [facility] Address [address] [place] [address] Phone Care Team Providers Care Firer Watertender Name Role Phone Gayla Barker APRN, MACHINE OPERATOR GENERAL Primary Care Provider Reason for Visit * Reason Comments Seizure Encounter Details Date Type Department Care Team (Late st Contact Info) Description 04/07/2019 10:16 AM DRY CAN TENDER - 04/07/2019 12:33 PM DRY CAN TENDER Emergency [facility] Emergency [address] [place] [id number] Alton Valerio MD Seizures (HCC) Discharge Disposition: Discharged to home or [...] file Legal Sex Female 10:27 AM DRY CAN TENDER Gender Identity Not on file Sexual Orientation Not on file documented as of this encounter Last Filed Vital Signs Vital Sign Reading Time Taken Comments Blood Pressure 112/68 04/07/2019 12:27 PM DRY CAN TENDER Pulse 65 04/07/2019 12:27 PM DRY CAN TENDER Temperature 36.5 ??C (97.7 ??F) 04/07/2019 12:[address] Respiratory Rate 18 04/07/2019 12:27 PM DRY CAN TENDER Oxygen Saturation 98% 04/07/2019 12:27 PM DRY CAN TENDER Inhaled Oxygen Concentration - - Weight 68 kg (150 lb) 04/07/2019 10:12 AM DRY CAN TENDER Height 157.5 cm (5' 2 ) 04/07/2019 10:12 AM DRY CAN TENDER Body Mass Index 27.44 04/07/2019 10:12 AM DRY CAN TENDER documented in this encounter Discharge Instructions * Attachments The following attachments cannot be sent through Care Everywhere. * Seizure, Recurrent (Adult) ([place]) documented in this encounter Medications at Time of Discharge ALPRAZolam (XANAX) 0.25 MG Tablet Take 0.25 mg by mouth. 0 clomiPHENE (CLOMID) 50 MG Tablet Take 50 mg by mouth. 03/31/2019 0 folic acid (FOLVITE) 1 MG Tablet Take 1 mg by mouth. 04/01/2019 0 hydroxychloroquine (PLAQUENIL) 200 MG Tablet Take 200 mg by mouth. 01/29/2019 0 levETIRAcetam (KEPPRA) 500 MG Tablet Take [...] as of this encounter ED Notes * Nicole Drake RN - 04/07/2019 12:32 PM CST Patient discharged. Discharge instructions and patient educational material reviewed with patient; questions and concerns addressed; patient verbalizes understanding, using teach back. Patient was given 1 prescriptions. Patient was informed no drinking alcohol, driving or operating heavy machinery while taking narcotics or muscle relaxants. Patient discharged per ambulatory mode with self as responsible green party. * Nicole Drake RN - 04/07/2019 12:26 PM CST Patients vital signs printed and scanned into chart. See media tab. Nicole Goyal RN - 04/07/2019 12:06 PM CST Patient resting on recliner with no requests at this time. Informed patient that lab results will be back soon. Patient states understanding. Call light within reach. Will continue to monitor. * Nicole Drake RN - 04/07/2019 11:20 AM CST Patient unsure if she wants to stay in hospital for observation. Requesting to wait for IV and IV medications/fluids until lab results are back. ERP notified. * Nicole Drake RN - 04/07/2019 11:05 AM CST Patient resting on chair with no requests at this time. Informed patient that lab will be in soon to draw blood. Patient states understanding. Call light within reach. Will continue to monitor. * Alton Valerio MD - 04/07/2019 10:46 AM CST Chief Complaint Patient presents with ??? Seizure Carito Rausch is a 28 y.o. female who presents to the ED s/p seizure. Pt has a hx of Lupus and had her first onset seizure on 03/18/2019. She was seen at [facility] ED. She did undergo CT scan of head which was unremarkable. She has not been started on any anti-convulsants. Prior totoday she had 2 additional seizures, 1 of which had associated urinary incontinence. She states that she is aware that she is going to have a seizure as her left side of her jaw tightens up then she begins shaking as if she is chilled then loses consciousness. When she awakes she feels as if her body has been drained. Pt had an episode today that was unwitnessed, had her usual pre-seizure sx, and had an episode of incontinence. Pt has her first neurology appointment pending on 05/01/2019. She also notes right anterior chest pain that worsens with deep breaths and palpation. She has had this frequently after her seizure episodes. The history is provided by the patient. No hr receptionist was used. Seizure Current Facility-Administered Medications Medication Dose Route Frequency Provider Last Rate Last Dose ??? 0.9 % sodium chloride solution 1,000 mL Intravenous Once Alton Valerio MD ??? levETIRAcetam (KEPPRA) IVPB 500 mg 500 mg Intravenous Once Alton Valerio MD Current Outpatient Medications Medication Sig Dispense Refill ??? ALPRAZolam (XANAX) 0.25 MG Tablet Take 0.25 mg by mouth. ??? clomiPHENE (CLOMID) 50 MG Tablet Take 50 mg by mouth. ??? folic acid (FOLVITE) 1 MG Tablet Take 1 mg by mouth. ??? hydroxychloroquine (PLAQUENIL) 200 MG Tablet Take 200 mg by mouth. ??? levETIRAcetam (KEPPRA) 500 MG Tablet Take 1 Tab by mouth 2 times daily. 60 Tab 0 ??? meloxicam (MOBIC) 15 MG Tablet Take 1 Tab by mouth daily. 90 Tab 3 ??? omeprazole (PRILOSEC) 20 MG CAPSULE DELAYED RELEASE TK 1 C PO QD ??? predniSONE (DELTASONE) 10 MG Tablet Take 3 tabs daily x3 days ??? predniSONE (DELTASONE) 5 MG Tablet TK 1 T PO QD ??? silver sulfADIAZINE (SILVADENE) 1 % Cream Apply 2 times daily. Application Site: to finger 2x/day (Description and Location) 50 g 0 Allergies Allergen Reactions ??? Medrol [Methylprednisolone] Anaphylaxis Past Medical History Positives Diagnosis Date ??? Lupus (systemic lupus erythematosus) (HCC) Past [...] Alcohol use: Yes Frequency: Monthly or less ??? Drug use: Never ??? Sexual activity: Not on file Lifestyle [...] History Narrative ??? Not on file BP 112/68 Pulse 65 Temp 97.7 ??F (36.5 ??C) (Tympanic) Resp 18 Ht 5' 2 (1.575 m) Wt 150 lb (68 kg) LMP 03/18/2019 SpO2 98% BMI 27.44 kg/m?? Review of Systems Constitutional: Negative for chills and fever. HENT: Negative for trouble swallowing. Eyes: Negative for visual disturbance. Respiratory: Negative for cough and shortness of breath. Cardiovascular: Positive for chest pain. Negative for palpitations. Gastrointestinal: Negative for abdominal pain, nausea and vomiting. Genitourinary: Negative for dysuria, frequency and urgency. Neurological: Positive for seizures. Negative for speech difficulty, weakness, numbness and headaches. All other systems reviewed and are negative. Physical Exam Constitutional: She is oriented to person, place, and time. She appears well- developed and well-nourished. No distress. Body mass index is 27.44 kg/m??. HENT: Head: Normocephalic and atraumatic. Mouth/Throat: [...] wheezes. She has no rales. She exhibits tenderness (focal tenderness to right upper anterior costochondralmargins which reprodduces her chest pain). Abdominal: Soft. Bowel sounds are normal. She exhibits no distension. There is no tenderness. Thereis no rebound and no guarding. Musculoskeletal: Normal [...] Notable for the following components: Result Value BUN 23 (*) CREATININE, BLOOD 0.56 (*) BUN/CREATININE RATIO 41 (*) All other components within normal limits CBC WITH AUTO DIFFERENTIAL - Abnormal; Notable for the following components: HEMOGLOBIN (HGB) 11.1 (*) MCHC 30.6 (*) MPV 9.5 (*) NEUTROPHILS 88.5 (*) LYMPHOCYTES 6.9 (*) ABSOLUTE LYMPHOCYTES 0.47 (*) All other components within normal limits COMPLETE BLOOD COUNT (CBC) WITH DIFF Narrative: The following orders were created for panel order Complete Blood Count (CBC) WITH Diff. Procedure Abnormality Status --------- ------ CBC with Auto Differential[[id number]] Abnormal Final result Please view results for these tests on the individual orders. HUMAN CHORIONIC GONADOTROPIN SCRN SERUM EXTRA TUBES Narrative: The following orders were created for panel order Extra Tubes. Procedure Abnormality Status --------- ------ Blue Top Tube[[id number]] Final result Please view results for these tests on the individual orders. BLUE TOP TUBE CMP (Comprehensive Metabolic Panel) Final Result Complete Blood Count (CBC) WITH Diff Final Result Human Chorionic Gonadotropin Scrn Serum Final Result Extra Tubes Final Result Reviewed: previous chart, nursing note and vitals Interpretation: labs Consults: neurology Clinical Impression 1. Seizures (HCC) 2. SLE (systemic lupus erythematosus) (HCC) 10:46. At bedside for initial evaluation. 1105. I discussed with Dr. Francisco (Neurology) the patient's case, history, lab results, physical exam findings, and current evaluations. They are aware of the patient's condition, diagnostic findings, and agree with the proposed management. Despite initially requesting hospitalization for more rapid evaluation of her seizure condition thepatient is now deciding she does not want to be hospitalized and instead will seek outpatient treatment. I provided her with a prescription for Keppra 500 mg p.o. b.i.d.. She was given referral to Dr. Francisco. By signing my name below, I, Hattie Garcia, attest that this documentation has been prepared under the direction and in the presence of Dr. Valerio Electronically Signed: Karlie Fermin. 04/07/19 1:36 PM I, Dr. Valerio, personally performed the services described in this documentation. All medical recordentries made by the scribe were at my direction and in my presence. I have reviewed the chart and discharge instructions and agree that the record reflects my personal performance and is accurate andcomplete. Dr. Valerio, 04/07/19 1:36 PM CAN TENDER * Nicole Drake RN - 04/07/2019 10:39 AM CST Patient presents to ED room 11-3. No change in patients condition since being seen in triage. See triage note. Assessment as noted. Call light within reach. Will continue to monitor. CAN TENDER * Remedios Stevenson RN - 04/07/2019 10:15 AM CST Pt to triage with c/o possible seizure activity this morning. Pt states she has been having seizures the last 4 months and has been seeing a neurologist in [facility], but has not been started on seizure medications. Pt states she was getting ready for work this morning, then woke up on the floor, incontinent of urine. States she believes she had a seizure but it was not witnessed. Also reports hxlupus. CAN TENDER documented in this encounter Plan of Treatment Not on file documented as of this encounter Procedures Procedure Name Priority Date/Time Associated Diagnosis Comments EXTRA TUBES STAT 04/07/2019 11:19 AM DRY CAN TENDER BLUE TOP TUBE STAT 04/07/2019 11:19 AM DRY CAN TENDER CBC WITH AUTO DIFFERENTIAL STAT 04/07/2019 11:19 AM DRY CAN TENDER HUMAN CHORIONIC GONADOTROPIN SCRN SERUM STAT 04/07/2019 11:19 AM DRY CAN TENDER CMP (COMPREHENSIVE METABOLIC PANEL) STAT 04/07/2019 11:19 AM DRY CAN TENDER COMPLETE BLOOD COUNT (CBC) WITH DIFF STAT 04/07/2019 11:19 AM DRY CAN TENDER documented in this encounter Results * Blue Top Tube (04/07/2019 11:19 AM DRY CAN TENDER) Blood specimen (specimen) Venipuncture / Unknown 04/07/2019 11:19 AM DRY CAN TENDER 04/07/2019 11:27 AM DRY CAN TENDER us Alton Valerio MD HEMATOLOGY ORDERABLES Final Result [facility] [place] [address] * (ABNORMAL) CBC with Auto Differential (04/07/2019 11:19 AM DRY CAN TENDER) [facility] Signature WBC 6.77 4.00 - 12.00 10(3)/mcL 04/07/2019 11:39 AM [facility] RBC 3.88 3.80 - 5.30 10(6)/mcL 04/07/2019 11:39 AM [facility] HEMOGLOBIN (HGB) 11.1(L) 12.0 - 15.8 g/dL 04/07/2019 11:39 AM [facility] HEMATOCRIT (HCT) 36.3 36.0 - 47.0 % 04/07/2019 11:39 AM [facility] MCV 93.6 82.0 - 96.0 fL 04/07/2019 11:39 AM [facility] MCH 28.6 26.0 - 34.0 pg 04/07/2019 11:39 AM [facility] MCHC 30.6(L) 31.0 - 36.0 g/dL 04/07/2019 11:39 AM [facility] PLATELET COUNT 287 140 - 440 10(3)/[facility] 04/07/2019 11:39 AM [facility] RDW 14.6 11.8 - 15.5 % 04/07/2019 11:39 AM [facility] MPV 9.5(L) 9.7 - 12.4 fL 04/07/2019 11:39 AM [facility] NEUTROPHILS 88.5(H) 47.0 - 73.0 % 04/07/2019 11:39 AM [facility] LYMPHOCYTES 6.9(L) 18.0 - 42.0 % 04/07/2019 11:39 AM [facility] MONOCYTES 4.0 4.0 - 12.0 % 04/07/2019 11:39 AM [facility] EOSINOPHILS 0.3 0.0 - 5.0 % 04/07/2019 11:39 AM DRY CAN TENDER [facility] BASOPHILS 0.3 0.0 - 1.0 % 04/07/2019 11:39 AM DRY CAN TENDER [facility] ABSOLUTE NEUTROPHILS 5.99 1.60 - 7.70 10(3)/[facility] 04/07/2019 11:39 AM DRY CAN TENDER [facility] ABSOLUTE LYMPHOCYTES 0.47(L) 1.30 - 3.20 10(3)/[facility] 04/07/2019 11:39 AM DRY CAN TENDER [facility] ABSOLUTE MONOCYTES 0.27 0.20 - 1.00 10(3)/[facility] 04/07/2019 11:39 AM DRY CAN TENDER [facility] ABSOLUTE EOSINOPHIL 0.02 0.00 - 0.40 10(3)/[facility] 04/07/2019 11:39 AM DRY CAN TENDER [facility] ABSOLUTE BASOPHILS 0.02 0.00 - 0.10 10(3)/[facility] 04/07/2019 11:39 AM DRY CAN TENDER [facility] NRBC PER 100 WBC 0 04/07/19 20 11:39 AM DRY CAN TENDER [facility] Blood specimen (specimen) Venipuncture / Unknown 04/07/2019 11:19 AM DRY CAN TENDER 04/07/2019 11:26 AM DRY CAN TENDER us Alton Valerio MD HEMATOLOGY ORDERABLES Final Result Performing Organization Address City/[facility]/ZIP Co de Phone Number [facility] [place] [address] * Human Chorionic Gonadotropin Scrn Serum (04/07/2019 11:19 AM DRY CAN TENDER) PREG-HCG Negative 04/07/2019 11:51 AM DRY CAN TENDER [facility] Blood specimen (specimen) Venipuncture / Unknown 04/07/2019 11:19 AM DRY CAN TENDER 04/07/2019 11:26 AM DRY CAN TENDER Alton Valerio MD CHEMISTRY ORDERABLES Final Result [facility] [place] [address] * (ABNORMAL) CMP (Comprehensive Metabolic Panel) (04/07/2019 11:19 AM DRY CAN TENDER) SODIUM 141 136 - 144 mmol/L 04/07/2019 11:57 AM [facility] POTASSIUM 4.5 3.5 - 5.1 mmol/L 04/07/2019 11:57 AM [facility] CHLORIDE 105 100 - 110 mmol/L 04/07/2019 11:57 AM [facility] CO2, VENOUS 26 22 - 32 mmol/L 04/07/2019 11:57 AM [facility] ANION GAP 14.5 8.0 - 20.0 mmol/L 04/07/2019 11:57 AM [facility] GLUCOSE 97 70 - 99 mg/dL 04/07/2019 11:57 AM [facility] BUN 23(H) 6 - 20 mg/dL 04/07/2019 11:57 AM [facility] CREATININE, BLOOD 0.56(L) 0.60 - 1.10 mg/dL 04/07/2019 11:57 AM [facility] BUN/CREATININE RATIO 41(H) 12 - 20 ratio 04/07/2019 11:57 AM [facility] TOTAL PROTEIN 7.5 6.0 - 8.3 g/dL 04/07/2019 11:57 AM [facility] ALBUMIN 4.3 3.5 - 5.2 g/dL 04/07/2019 11:57 AM [facility] Comment: The colormetric methods used for the determination of Albumin may lead to falsely elevated test results in patients suffering from renal failure or insufficiency due to interference with other proteins. A/G RATIO 1.3 1.0 - 2.0 04/07/2019 11:57 AM [facility] CALCIUM 9.4 8.9 - 10.3 mg/dL 04/07/2019 11:57 AM [facility] T BILI <=0.2 <=1.2 mg/dL 04/07/2019 11:57 AM DRY CAN TENDER [facility] SGOT (AST) 18 <=32 U/L 04/07/2019 11:57 AM DRY CAN TENDER [facility] SGPT (ALT) 23 <=33 U/L 04/07/2019 11:57 AM [facility] ALKALINE PHOSPHATASE 39 35 - 105 U/L 04/07/2019 11:57 AM DRY CAN TENDER [facility] GFR, EST. NONAFRICAN >60 >=60 04/07/2019 11:57 AM DRY CAN TENDER [facility] GFR, EST. >60 >=60 020 11:57 AM [facility] Comment: Creatinine Clearance is the preferred criteria for selecting drug dose adjustments in renally impaired patients. ??The GFR is provided as additional pertinent clinical information. GFR is reported in mL/min/1.73 sq m. Blood specimen (specimen) Venipuncture / Unknown 04/07/2019 11:19 AM DRY CAN TENDER 04/07/2019 11:26 AM DRY CAN TENDER us Alton Valerio MD CHEMISTRY ORDERABLES Final Result [facility] [place] [address] documented in this encounter Visit Diagnoses Diagnosis Seizures (HCC)- Primary Other convulsions SLE (systemic lupus erythematosus) (HCC) Systemic lupus erythematosus documented in this encounter Active and Recently Administered Medications Times are shown in DRY CAN TENDER. Scheduled Medication Order 04/05/2019 04/06/2019 04/07/2019 0.9 % sodium chloride solution at 75 mL/hr, Intravenous, ONCE, 1 dose, On Sun04/07/19 at 1130 1158 (Not Given - Pr ovider: Nicole Drake RN - Reason: Patient/family refused) levETIRAcetam (KEPPRA) IVPB 500 mg 500 mg, Intravenous, ONCE, 1 dose, On Sun04/07/19 at 1130, Administer over 15 Minutes 1158 (Not Given - Pr ovider: Nicole Drake RN - Reason: Patient/family refused) documented in this encounter Additional Health Concerns Assessment Noted Time PHQ-9 Depression Total Score: 0 03/25/19 10:00 AM DRY CAN TENDER documented as of this encounter Care Teams Firer Watertender Relationship Specialty Start Date End Date Gayla Barker, TOTER, MACHINE OPERATOR GENERAL [address] [place] [address] PCP - General Advanced Practice Nurse 03/25/19 documented as of this encounter
--- OUTSIDE RECORDS SUMMARY | 2024-02-24 19:49 | XMS_ITS | Encounter Summary ---
Author Organization [facility] Address [address] [place] [address] Phone Care Team Providers Care Pneumatic Hoist Operator Name Role Phone Gayla Barker APRN, PATHOLOGY TECHNICIAN Primary Care Provider Reason for Visit * Reason Onset Date Comments Medication Refill 04/22/2019 Encounter Details Date Type Department Care Team (Late st Contact Info) Description 04/22/2019 [facility] [address] [place], [place] [id number] Gayla Barker, ANNIE, PATHOLOGY TECHNICIAN [address] [place] [address] Medication Refill Social History Tobacco [...] on file Legal Sex Female 10:27 AM PRESCHOOL TEACHER ASSISTANT Gender Identity Not on file Sexual Orientation Not on file documented as of this encounter Miscellaneous Notes * Telephone Encounter - Angelique Crisostomo RN - 04/22/2019 4:57 PM CST Notified patient. Voiced understanding. CHOOL TEACHER ASSISTANT * Telephone Encounter - Gayla Barker APN, CNP - 04/22/2019 9:52 AM PRESCHOOL TEACHER ASSISTANT Approved but please let patient know that alprazolam is not safe in . CHOOL TEACHER ASSISTANT * Telephone Encounter - Sara Wasserman, PRO - 04/22/2019 9:45 AM CST Patient is calling requesting refills. Pended for review. Please advise CHOOL TEACHER ASSISTANT documented in this encounter Plan of Treatment Not on file documented as of this encounter Visit Diagnoses Not on filedocumented in this encounter Additional Health Concerns Assessment Noted Time PHQ-9 Depression Total Score: 0 03/25/19 10:00 AM PRESCHOOL TEACHER ASSISTANT documented as of this encounter Care Teams Pneumatic Hoist Operator Relationship Specialty Start Date End Date Gayla Barker APRN, CNP [address] [place] [address] PCP - General Advanced Practice Nurse 03/25/19 documented as of this encounter
--- OUTSIDE RECORDS SUMMARY | 2024-02-24 19:49 | XMS_ITS | Encounter Summary ---
Author Organization [facility] Address [address] [place] [address] Phone Care Team Providers Care Supervisor Cooler Service Name Role Phone Gayla Barker APRN, FOREST NURSERY WORKER Primary Care Provider Reason for Visit * Reason Onset Date Comments Back Pain 04/24/2019 Encounter Details Date Type Department Care Team (Late st Contact Info) Description 04/24/2019 Nurse Triage [facility] [address] [place] [address] Gayla Barker, ANNIE, FOREST NURSERY WORKER [address] [place] [address] Back Pain Social History Tobacco Use Types Packs/Day [...] Legal Sex Female 10:27 AM HEAD OF INSIGHT Gender Identity Not on file Sexual Orientation Not on file documented as of this encounter Miscellaneous Notes * Telephone Encounter - Angelique Crisostomo RN - 04/24/2019 8:29 AM CST SITUATION: Back pain BACKGROUND: Patient has Lupus. Symptoms started on 04/23. ASSESSMENT: Symptom Description / Location: Patient states having back pain and generalized body aches. Pain (0-10): 9/10 Temp: denies fever Treatment / Response: Tylenol has not helped at all LMP / / : About 8 days ago RECOMMENDATION: See care advice and disposition for Guideline First positive answer recorded, all responses to prior questions were negative. If symptoms increase, change or if new symptoms develop, call your HCP or call back. Recommendations were based on caller information and is not a diagnosis. Verified and reviewed all triage information with caller. Reason for Disposition ??? SEVERE back pain Protocols used: BACK PAIN-A-OH Scheduled patient with [facility] banks at 1100. OF INSIGHT documented in this encounter Plan of Treatment Not on file documented as of this encounter Visit Diagnoses Not on filedocumented in this encounter Additional Health Concerns Assessment Noted Time PHQ-9 Depression Total Score: 0 03/25/19 20 10:00 AM HEAD OF INSIGHT documented as of this encounter Care Teams Supervisor Cooler Service Relationship Specialty Start Date End Date Gayla Barker, [employer], FOREST NURSERY WORKER [address] [place] [address] PCP - General Advanced Practice Nurse 03/25/19 documented as of this encounter
--- OUTSIDE RECORDS SUMMARY | 2024-02-24 19:49 | XMS_ITS | Encounter Summary ---
Author Organization [facility] Address [address] [place] [address] Phone Care Team Providers Care Business Supervisor Name Role Phone Gayla Barker APRN, DATA CENTER CONSULTANT Primary Care Provider Encounter Details Date Type Department Care Team (Late st Contact Info) Description 03/25/2019 1:25 PM BINDERY SUPERVISOR Lab [facility] Laboratory Services [address] [place] [address] Gayla Barker, ANNIE, DATA CENTER CONSULTANT [address] [place] [address] Arthralgia of both knees Discharge Disposition: Discharged to home or Selfcare [...] on file Legal Sex Female 10:27 AM BINDERY SUPERVISOR Gender Identity Not on file Sexual Orientation Not on file documented as of this encounter Functional Status documented as of this encounter Progress Notes * Gayla Barker, PENNY, DATA CENTER CONSULTANT - 03/25/2019 1:25 PM CST Added some more labs to differentiate joint pain disease process. ERY SUPERVISOR documented in this encounter Plan of Treatment Not on file documented as of this encounter Procedures Procedure Name Priority Date/Time Associated Diagnosis Comments CYCLIC CITRULLINATED PEPTIDE 3 Routine 03/26/2019 11:56 AM BINDERY SUPERVISOR Arthralgia of both knees HLA B 27 Routine 03/26/2019 11:56 AM BINDERY SUPERVISOR Arthralgia of both knees URIC ACID (BLOOD ASSAY) Routine 03/26/2019 11:56 AM BINDERY SUPERVISOR Arthralgia of both knees RHEUMATOID FACTOR (RFQT) QUANT Routine 03/25/2019 12:03 PM BINDERY SUPERVISOR Arthralgia of both knees documented in this encounter Results * URIC ACID (BLOOD ASSAY) (03/26/2019 11:56 AM BINDERY SUPERVISOR) URIC ACID 3.9 2.4 - 5.7 mg/dL 03/26/2019 3:30 PM BINDERY SUPERVISOR [facility] Blood specimen (specimen) Venipuncture / Unknown 03/26/2019 11:56 AM BINDERY SUPERVISOR 03/26/2019 2:57 PM BINDERY SUPERVISOR us Gayla Barker APRN, CNP CHEMISTRY ORDERABLES Fi nal Result [facility] [place] [address] * CYCLIC CITRULLINATED PEPTIDE 3 (03/26/2019 11:56 AM BINDERY SUPERVISOR) CCP IGG 1.2 <3.0 U/mL 03/27/2019 12:56 PM BINDERY SUPERVISOR [facility] Blood specimen (specimen) Venipuncture / Unknown 03/26/2019 11:56 AM BINDERY SUPERVISOR 03/26/2019 2:56 PM BINDERY SUPERVISOR Narrative [facility] - 03/27/2019 12:56 PM BINDERY SUPERVISOR Antibody testing was performed by multiplex flow immunoassay on the [employer] platform. us Gayla Barker APRN, CNP IMMUNOLOGY ORDERABLES F inal Result Performing Organization Address City/[facility]/ZIP Co de Phone Number [facility] [address] [place] [address], [place] * HLA B 27 (03/26/2019 11:56 AM BINDERY SUPERVISOR) HLA B27 Negative Negative 03/28/2019 7:52 AM BINDERY SUPERVISOR [facility] Blood specimen (specimen) Venipuncture / Unknown 03/26/2019 11:56 AM BINDERY SUPERVISOR 03/26/2019 2:55 PM BINDERY SUPERVISOR us Gayla Barker APRN, CNP IMMUNOLOGY ORDERABLES F inal Result Performing Organization Address [facility] Co de Phone Number [facility] [address] [place] [address], [place] * RHEUMATOID FACTOR (RFQT) QUANT (03/25/2019 12:03 PM BINDERY SUPERVISOR) Pathologist [facility] RHEUMATOID FACTOR QT <=10 <14 IU/mL 03/25/2019 2:53 PM BINDERY SUPERVISOR [facility] Blood specimen (specimen) Venipuncture / Unknown 03/25/2019 12:03 PM BINDERY SUPERVISOR 03/25/2019 1:48 PM BINDERY SUPERVISOR Narrative [facility] - 03/25/2019 2:53 PM BINDERY SUPERVISOR RHEUMATOID FACTORS CAN BE FOUND IN RHEUMATOID ARTHRITIS, SYPHILIS, VIRAL INFECTIONS, LEPROSY, CHRONIC LIVER DISEASE, NEOPLASMS, AND OTHER INFLAMMATORY CONDITIONS. RF PREVALENCE ALSO INCREASES WITH AGE. THUS A POSITIVE TEST IS NOT RESTRICTED TO RA. CONVERSELY, A NEGATIVE TEST DOES NOT RULE OUT RA, RHEUMATOID FACTORS ARE NOT DETECTABLE IN 10% OF ADULTS WITH THE DISEASE. us Gayla Barker APRN, CNP CHEMISTRY ORDERABLES Fi nal Result Performing Organization Address City/[facility] Co de Phone Number [facility] [address] [place] [address] documented in this encounter Visit Diagnoses Diagnosis Arthralgia of both knees documented in this encounter Additional Health Concerns Assessment Noted Time PHQ-9 Depression Total Score: 0 03/25/19 10:00 AM BINDERY SUPERVISOR documented as of this encounter Care Teams Business Supervisor Relationship Specialty Start Date End Date Gayla Barker, READERS' ADVISORY SERVICE LIBRARIAN, DATA CENTER CONSULTANT [address] [place] [address] PCP - General Advanced Practice Nurse 03/25/19 documented as of this encounter
--- OUTSIDE RECORDS SUMMARY | 2024-02-24 19:49 | XMS_ITS | Encounter Summary ---
Author Organization [facility] Address [address] [place] [address] Phone Care Team Providers Care Panel Lay Up Worker Name Role Phone Gayla Barker APRN, RETAIL SELLING SPECIALIST Primary Care Provider Encounter Details Date Type Department Care Team (Latest Contact Info) Description 04/28/2019 5:10 PM STAMP MACHINE SERVICER Ancillary Procedure [facility] [place] [address] [place] [id number] Discharge Disposition: Discharged to home or Selfcare [...] on file Legal Sex Female 10:27 AM STAMP MACHINE SERVICER Gender Identity Not on file Sexual Orientation Not on file documented as of this encounter Plan of Treatment Not on file documented as of this encounter Procedures Procedure Name Priority Date/Time Associated Diagnosis Comments XR CERVICAL SPINE MINIMUM 4 VIEWS (4 OR 5V) Routine 04/28/2019 6:13 PM STAMP MACHINE SERVICER Chronic bilateral back pain, unspecified back location documented in this encounter Results * XR CERVICAL SPINE MINIMUM 4 VIEWS (4 OR 5V) (04/28/2019 6:13 PM STAMP MACHINE SERVICER) Anatomical Region Laterality Modality Spine, C-spine N/A Digital Radiogra phy 04/29/2019 9:22 AM STAMP MACHINE SERVICER Impressions 04/29/2019 9:25 AM STAMP MACHINE SERVICER IMPRESSION: ??Cervical vertebral body heights and anterior posterior alignment is maintained. Narrative 04/29/2019 9:25 AM STAMP MACHINE SERVICER EXAM DESCRIPTION: ?? XR CERVICAL SPINE MINIMUM [...] AM T: ??04/29/2019 9:22 AM Report ID: [id number] Reading Location: ??[id number] Procedure Note Alan Lundy DO - 04/29/2019 [...] Alan Lundy D.O. AP: AP Report ID: [id number] Reading Location: [id number] IMPRESSION: Cervical vertebral body heights and anterior posterior alignment is maintained. us Gayla Barker APRN, CNP IMG DIAGNOSTIC ORDERABL ES Final Result documented in this encounter Visit Diagnoses Not on filedocumented in this encounter Additional Health Concerns Assessment Noted Time PHQ-9 Depression Total Score: 0 03/25/19 10:00 AM STAMP MACHINE SERVICER documented as of this encounter Care Teams Panel Lay Up Worker Relationship Specialty Start Date End Date Gayla Barker APRN, HARSHA [address] [place] [address] PCP - General Advanced Practice Nurse 03/25/19 documented as of this encounter
--- OUTSIDE RECORDS SUMMARY | 2024-02-24 19:49 | XMS_ITS | Encounter Summary ---
Author Organization [facility] Address [address] [place] [address] Phone Care Team Providers Care Funeral Home General Manager Name Role Phone Gayla Barker APRN, HYDROTHERAPIST Primary Care Provider Encounter Details Date Type Department Care Team (Latest Contact Info) Description 03/26/2019 Transcribe Orders [facility] Ad[facility] [address] [place] [phone] Provider, Not On File [place] Lupoid nephritis [...] on file Legal Sex Female 10:27 AM ENGRAVING PATTERNMAKER Gender Identity Not on file Sexual Orientation Not on file documented as of this encounter Plan of Treatment Not on file documented as of this encounter Results * UR 24 HR PROTEIN (03/28/2019 8:58 AM ENGRAVING PATTERNMAKER) VOLUME 24 HOUR PROTEIN 1,450 mL 03/28/2019 11:10 AM ENGRAVING PATTERNMAKER [facility] U PROTEIN MG/24HR 131 <150 mg/24 h 03/28/2019 11:10 AM ENGRAVING PATTERNMAKER [facility] Urine specimen (specimen) Non-Phlebotomy Collection / Unknown 03/28/2019 8:58 AM ENGRAVING PATTERNMAKER 03/28/2019 10:44 AM ENGRAVING PATTERNMAKER us Not On File Provider URINE ORDERABLES Final Resu lt [facility] [address] [place] [address] * (ABNORMAL) URINALYSIS REFLEX IF INDICATED BY ABNORMAL RESULTS (03/26/2019 11:57 AM ENGRAVING PATTERNMAKER) SPECIFIC GRAVITY 1.015 1.003 - 1.030 03/26/2019 3:18 PM ENGRAVING PATTERNMAKER [facility] URINE PH 7.0 5.0 - 9.0 03/26/2019 3:18 PM ENGRAVING PATTERNMAKER [facility] WBC ESTERASE Negative Negative 03/26/2019 3:18 PM ENGRAVING PATTERNMAKER [facility] NITRITE Negative Negative 03/26/2019 3:18 PM ENGRAVING PATTERNMAKER [facility] PROTEIN, RANDOM URINE 15 mg/dL(A) Negative mg/dL 03/26/2019 3:18 PM ENGRAVING PATTERNMAKER [facility] URINE GLUCOSE, QUAL Negative Negative 03/26/2019 3:18 PM ENGRAVING PATTERNMAKER [facility] URINE KETONES Negative Negative mg/dL 03/26/2019 3:18 PM ENGRAVING PATTERNMAKER [facility] UROBILINOGEN Normal Normal mg/dL 03/26/2019 3:18 PM ENGRAVING PATTERNMAKER [facility] URINE BILIRUBIN Negative Negative 0 3:18 PM ENGRAVING PATTERNMAKER [facility] URINE BLOOD Negative Negative pierre/ul 03/26/2019 3:18 PM ENGRAVING PATTERNMAKER [facility] URINALYSIS COLOR Yellow 03/26/19 20 3:18 PM ENGRAVING PATTERNMAKER [facility] URINALYSIS CLARITY Slightly Cloudy 03/26/2019 3:18 PM ENGRAVING PATTERNMAKER [facility] Urine specimen (specimen) URINE SPECIMEN / Unknown Non-Phlebotomy Collection / Unknown 03/26/2019 11:57 AM ENGRAVING PATTERNMAKER 03/26/2019 2:57 PM ENGRAVING PATTERNMAKER us Not On File Provider URINE ORDERABLES Final Resu lt [facility] [address] [place] [address] * (ABNORMAL) UR MICROALBUMIN/CREATININE RATIO RANDOM (03/26/2019 11:57 AM ENGRAVING PATTERNMAKER) RAN UR MICROALBUMIN 5.30(H) <=2.00 mg/dL 03/26/2019 3:25 PM ENGRAVING PATTERNMAKER [facility] CREATININE URINE 155.5 28.0 - 217.0 mg/dL 03/26/2019 3:25 PM ENGRAVING PATTERNMAKER [facility] ALB/CREAT RATIO 34(H) 1 - 30 mg/g CRE 03/26/2019 3:25 PM ENGRAVING PATTERNMAKER [facility] Urine specimen (specimen) Non-Phlebotomy Collection / Unknown 03/26/2019 11:57 AM ENGRAVING PATTERNMAKER 03/26/2019 2:57 PM ENGRAVING PATTERNMAKER us Not On File Provider URINE ORDERABLES Final Resu lt [facility] [address] [place] [address] * (ABNORMAL) COMPLETE BLOOD COUNT (CBC) WITHOUT DIFF (03/26/2019 11:57 AM ENGRAVING PATTERNMAKER) WBC 8.04 4.00 - 12.00 10(3)/mcL 03/26/2019 3:02 PM ENGRAVING PATTERNMAKER [facility] RBC 3.86 3.80 - 5.30 10(6)/mcL 03/26/2019 3:02 PM ENGRAVING PATTERNMAKER [facility] HEMOGLOBIN (HGB) 11.0(L) 12.0 - 15.8 g/dL 03/26/2019 3:02 PM ENGRAVING PATTERNMAKER [facility] HEMATOCRIT (HCT) 36.3 36.0 - 47.0 % 03/26/2019 3:02 PM ENGRAVING PATTERNMAKER [facility] MCV 94.0 82.0 - 96.0 fL 03/26/2019 3:02 PM [facility] MCH 28.5 26.0 - 34.0 pg 03/26/2019 3:02 PM [facility] MCHC 30.3(L) 31.0 - 36.0 g/dL 03/26/2019 3:02 PM ENGRAVING PATTERNMAKER [facility] PLATELET COUNT 294 140 - 440 10(3)/mcL 03/26/2019 3:02 PM [facility] RDW 14.6 11.8 - 15.5 % 03/26/2019 3:02 PM [facility] MPV 10.5 9.7 - 12.4 fL 03/26/2019 3:02 PM [facility] Blood specimen (specimen) Venipuncture / Unknown 03/26/2019 11:57 AM ENGRAVING PATTERNMAKER 03/26/2019 2:58 PM ENGRAVING PATTERNMAKER us Not On File Provider HEMATOLOGY ORDERABLES Final Result [facility] [address] [place] [address] * (ABNORMAL) CMP (COMPREHENSIVE METABOLIC PANEL) (03/26/2019 11:56 AM ENGRAVING PATTERNMAKER) SODIUM 140 136 - 144 mmol/L 03/26/2019 3:30 PM [facility] POTASSIUM 4.2 3.5 - 5.1 mmol/L 03/26/2019 3:30 PM [facility] CHLORIDE 100 100 - 110 mmol/L 03/26/2019 3:30 PM [facility] CO2, VENOUS 26 22 - 32 mmol/L 03/26/2019 3:30 PM [facility] ANION GAP 18.2 8.0 - 20.0 mmol/L 03/26/2019 3:30 PM [facility] GLUCOSE 87 70 - 99 mg/dL 03/26/2019 3:30 PM [facility] BUN 15 6 - 20 mg/dL 03/26/2019 3:30 PM [facility] CREATININE, BLOOD 0.51(L) 0.60 - 1.10 mg/dL 03/26/2019 3:30 PM [facility] BUN/CREATININE RATIO 29(H) 12 - 20 ratio 03/26/2019 3:30 PM [facility] TOTAL PROTEIN 7.3 6.0 - 8.3 g/dL 03/26/2019 3:30 PM [facility] ALBUMIN 4.4 3.5 - 5.2 g/dL 03/26/2019 3:30 PM [facility] Comment: The colormetric methods used for the determination of Albumin may lead to falsely elevated test results in patients suffering from renal failure or insufficiency due to interference with other proteins. A/G RATIO 1.5 1.0 - 2.0 03/26/2019 3:30 PM [facility] CALCIUM 9.7 8.9 - 10.3 mg/dL 03/26/2019 3:30 PM [facility] T BILI 0.3 <=1.2 mg/dL 03/26/2019 3:30 PM [facility] SGOT (AST) 14 <=32 U/L 03/26/2019 3:30 PM [facility] SGPT (ALT) 21 <=33 U/L 03/26/2019 3:30 PM [facility] ALKALINE PHOSPHATASE 50 35 - 105 U/L 03/26/2019 3:30 PM [facility] GFR, EST. NONAFRICAN >60 >=60 03/26/2019 3:30 PM [facility] GFR, EST. >60 >=60 020 3:30 PM [facility] Comment: Creatinine Clearance is the preferred criteria for selecting drug dose adjustments in renally impaired patients. ??The GFR is provided as additional pertinent clinical information. GFR is reported in mL/min/1.73 sq m. Blood specimen (specimen) Venipuncture / Unknown 03/26/2019 11:56 AM ENGRAVING PATTERNMAKER 03/26/2019 2:57 PM ENGRAVING PATTERNMAKER us Not On File Provider CHEMISTRY ORDERABLES Final Result [facility] [address] [place] [address] documented in this encounter Visit Diagnoses 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 Proteinuria, unspecified type Essential hypertension, malignant documented in this encounter Additional Health Concerns Assessment Noted Time PHQ-9 Depression Total Score: 0 03/25/19 10:00 AM ENGRAVING PATTERNMAKER documented as of this encounter Care Teams Funeral Home General Manager Relationship Specialty Start Date End Date Gayla Barker, WATERSHED TENDER, HYDROTHERAPIST [address] [place] [address] PCP - General Advanced Practice Nurse 03/25/19 documented as of this encounter
--- OUTSIDE RECORDS SUMMARY | 2024-02-24 19:49 | XMS_ITS | Encounter Summary ---
Author Organization [facility] Address [address] [place] [address] Phone Care Team Providers Care Surface Room Shop Optician Name Role Phone Gayla Barker APRN, SHIPPING AND RECEIVING OPERATOR Primary Care Provider Reason for Visit * Reason Onset Date Comments Results 04/08/2019 Encounter Details Date Type Department Care Team (Late st Contact Info) Description 04/08/2019 Telephone [facility] [address] [place], [place] [id number] Gayla Barker, ANNIE, SHIPPING AND RECEIVING OPERATOR [address] [place] [address] Results Social History Tobacco Use [...] on file Legal Sex Female 10:27 AM PHYSICAL THERAPY MANAGER Gender Identity Not on file Sexual Orientation Not on file documented as of this encounter Miscellaneous Notes * Telephone Encounter - Angelique Crisostomo RN - 04/09/2019 9:54 AM CST Spoke to patient and she stated that she has already talked to Gayla. ICAL THERAPY MANAGER * Telephone Encounter - Angelique Crisostomo RN - 04/08/2019 1:48 PM CST Patient asking for results to PFT test done on 03/26. Final results in Epic. Please advise. Patient would like to have results when she sees her Lupus doctor tomorrow, 04/09. Patient asking ifprovider would be willing to give her a call. States that she has some questions about the test. Please advise. [facility] ICAL THERAPY MANAGER documented in this encounter Plan of Treatment Not on file documented as of this encounter Visit Diagnoses Not on filedocumented in this encounter Additional Health Concerns Assessment Noted Time PHQ-9 Depression Total Score: 0 03/25/19 10:00 AM PHYSICAL THERAPY MANAGER documented as of this encounter Care Teams Surface Room Shop Optician Relationship Specialty Start Date End Date Gayla Barker, CORE DRILL OPERATOR HELPER, SHIPPING AND RECEIVING OPERATOR [address] [place] [address] PCP - General Advanced Practice Nurse 03/25/19 documented as of this encounter
--- OUTSIDE RECORDS SUMMARY | 2024-02-24 19:49 | XMS_ITS | Encounter Summary ---
Author Organization [facility] Address [address] [place] [address] Phone Care Team Providers Care Surfacing Technician Name Role Phone Gayla Barker APRN, CONVENIENCE STORE CLERK Primary Care Provider Reason for Visit * Reason Onset Date Comments Results 04/28/2019 Encounter Details Date Type Department Care Team (Late st Contact Info) Description 04/28/2019 Telephone [facility] [address] [place] [address] Gayla Barker, ANNIE, CONVENIENCE STORE CLERK [address] [place] [address] Results Social History Tobacco Use [...] file Legal Sex Female 10:27 AM CHILD DEVELOPMENT CONSULTANT Gender Identity Not on file Sexual Orientation Not on file documented as of this encounter Miscellaneous Notes * Telephone Encounter - Leit Gusman RN - 04/28/2019 3:03 PM CHILD DEVELOPMENT CONSULTANT Phoned patient with lab results. Patient aware and verbalized understanding. Patient is going to call her fertility specialist to confirm the test- she is very concerned about having testing if she is possibly . Will come to have x-rays later today if fertility specialist feels it is okay. Results released to my chart per patient request. D DEVELOPMENT CONSULTANT * Telephone Encounter - Leti Gusman RN - 04/28/2019 3:03 PM CHILD DEVELOPMENT CONSULTANT ----- Message from Gayla Barker APN, CONVENIENCE STORE CLERK sent at 04/28/2019 2:37 PM CHILD DEVELOPMENT CONSULTANT ----- Not . Ok to give shot and xrays. D DEVELOPMENT CONSULTANT documented in this encounter Plan of Treatment Not on file documented as of this encounter Visit Diagnoses Not on filedocumented in this encounter Additional Health Concerns Assessment Noted Time PHQ-9 Depression Total Score: 0 03/25/19 20 10:00 AM CHILD DEVELOPMENT CONSULTANT documented as of this encounter Care Teams Surfacing Technician Relationship Specialty Start Date End Date Gayla Barker, FINISHER [employer]CHANT [employer]ODUCTS, CONVENIENCE STORE CLERK [address] [place] [address] PCP - General Advanced Practice Nurse 03/25/19 documented as of this encounter
--- OUTSIDE RECORDS SUMMARY | 2024-02-24 19:49 | XMS_ITS | Encounter Summary ---
Author Organization [facility] Address [address] [place] [address] Phone Care Team Providers Care Gravedigger Name Role Phone Gayla Barker APRN, RECREATION THERAPIST Primary Care Provider Reason for Visit * Reason Comments Abdominal Pain Encounter Details Date Type Department Care Team (Late st Contact Info) Description 04/12/2019 8:40 AM SUMMONS SERVER - 04/12/2019 11:16 AM SUMMONS SERVER Emergency [facility] Emergency [address] [place] [address] Cirilo Nix MD [address] [place] [id number] Acute upper respiratory infection Discharge Disposition: Discharged to home or [...] on file Legal Sex Female 10:27 AM SUMMONS SERVER Gender Identity Not on file Sexual Orientation Not on file documented as of this encounter Last Filed Vital Signs Vital Sign Reading Time Taken Comments Blood Pressure 132/74 04/12/2019 11:03 AM SUMMONS SERVER Pulse 87 04/12/2019 11:05 AM SUMMONS SERVER Temperature 36.9 ??C (98.5 ??F) 04/12/2019 11:[address] Respiratory Rate 16 04/12/2019 8:32 AM SUMMONS SERVER Oxygen Saturation 100% 04/12/2019 11:05 AM SUMMONS SERVER Inhaled Oxygen Concentration - - Weight 68 kg (150 lb) 04/12/2019 8:32 AM SUMMONS SERVER Height 160 cm (5' 3 ) 04/12/2019 8:32 AM SUMMONS SERVER Body Mass Index 26.57 04/12/2019 8:32 AM SUMMONS SERVER documented in this encounter Discharge Instructions * Discharge Instructions* Cirilo Nix MD - 04/12/2019 11:10 AM SUMMONS SERVER Continue the Flonase nose spray daily. May use the Afrin spray every 4 hr for nasal congestion. Three days maximum for use. Recommend using the sinus rinse to clear her sinuses out. Follow up with her PCP as needed. Discussed with her lead oracle developer if you're his abdominal symptoms and hematuria related to the meloxicam. ONS SERVER ONS SERVER * Attachments The following attachments cannot be sent through Care Everywhere. * Respiratory Infections, Preventing Common (Ecuadorean) * URI, Viral, No Abx (Adult) (Ecuadorean) documented in this encounter Medications at Time of Discharge ALPRAZolam (XANAX) 0.25 MG Tablet Take 0.25 mg by mouth. 0 clomiPHENE (CLOMID) 50 MG Tablet Take 50 mg by mouth. 03/31/2019 0 ergocalciferol (VITAMIN D) 97958 UNIT Capsule Take 1.25 mg by mouth [...] ED Notes * Leti Ames RN - 04/12/2019 11:15 AM CST Patient discharged. Discharge instructions and patient educational material reviewed with patient; questions and concerns addressed; patient verbalizes understanding, using teach back. Patient was given 0 prescriptions. Patient discharged per ambulatory mode with spouse as responsible green party. * Leti Ames RN - 04/12/2019 11:03 AM CST Pt medicated per provider orders. Pt educated on intended effects and side effects of medication and verbalized understanding, able to provide teach back of education. ONS SERVER * Leti Ames RN - 04/12/2019 10:[address] Nix at bedside to update pt on results/status. * Cirilo Nix MD - 04/12/2019 8:54 AM CST Chief Complaint Patient presents with ??? Abdominal Pain Carito Rausch is a 28 y.o. female who presents tot the emergency department via private automobile with c/o abdominal pain onset 4 days ago. The patient has associated sx of generalized myalgia, tenderness to neck and lymph nodes, bilateral ear pain, diarrhea x 2 days, upper back pain, emesis onset last night, sinus pressure, and chest pain. She reports she has been feeling unwell for approximately 4 days. She has a PMHx notable for lupus. The patient States her chest pain radiates down her left arm. The patient took Zyrtec STOREPERSON. She denies fever, chills, or cough. She is a non smoker. The patient is allergic to Medrol. Current Facility-Administered Medications Medication Dose Route Frequency Provider Last Rate Last Dose ??? oxymetazoline (AFRIN) 0.05 % nasal spray 2 [place] 2 [place] Nasal Once Cirilo Nix MD Current Outpatient Medications Medication Sig Dispense Refill ??? ALPRAZolam (XANAX) 0.25 MG Tablet Take 0.25 mg by mouth. ??? clomiPHENE (CLOMID) 50 MG Tablet Take 50 mg by mouth. ??? ergocalciferol (VITAMIN D) 46533 UNIT Capsule Take 1.25 mg by mouth [...] file Gets together: Not on file Attends sikhism service: Not on file Active member of [...] History Narrative ??? Not on file BP (!) 124/92 Pulse 81 Temp 97.8 ??F (36.6 ??C) (Tympanic) Resp 16 Ht 5' 3 (1.6 m) Wt 150 lb (68 kg) LMP 02/13/2019 SpO2 98% BMI 26.57 kg/m?? Review of Systems Constitutional: Negative for activity change, appetite change, chills, fever and unexpected weight change. HENT: Positive for ear pain and sinus pressure. Negative for congestion, dental problem, hearing loss, nosebleeds, rhinorrhea, sore throat, tinnitus, trouble swallowing and voice change. Mouth sores:bilateral. Eyes: Negative for photophobia, pain, discharge and visual disturbance. Respiratory: Negative for cough, choking, shortness of breath and wheezing. Cardiovascular: Positive for chest pain. Negative for palpitations and leg swelling. Gastrointestinal: Positive for abdominal pain, diarrhea and vomiting. Negative for blood in stool, constipation and nausea. Endocrine: Negative for cold intolerance, polydipsia, polyphagia and polyuria. Genitourinary: Negative for dysuria, frequency and urgency. Musculoskeletal: Positive for back pain (upper), myalgias (generalized) and neck pain. Negative forarthralgias, gait problem and joint swelling. Skin: Negative for pallor, rash and wound. Allergic/Immunologic: Negative for environmental allergies and immunocompromised state. Neurological: Negative for dizziness, tremors, seizures, syncope, numbness and headaches. Hematological: Negative for adenopathy. Does not bruise/bleed easily. Psychiatric/Behavioral: Negative for agitation, behavioral problems, confusion, hallucinations and self-injury. The patient is not nervous/anxious. All other systems reviewed and are negative. Physical Exam Constitutional: She is oriented to person, place, and time. She appears well- developed and well-nourished. No distress. Body mass index is 26.57 kg/m??. HENT: Head: Normocephalic and atraumatic. Mouth/Throat: [...] not diaphoretic. No erythema. No pallor. Psychiatric: Her behavior is normal. Judgment and thought content normal. Her mood appears anxious. The patient is anxious. Nursing note and vitals reviewed. Procedures MDM Labs Reviewed CMP (COMPREHENSIVE METABOLIC PANEL) - Abnormal; Notable for the following components: Result Value CREATININE, BLOOD 0.54 (*) BUN/CREATININE RATIO 28 (*) All other components within normal limits ERYTHROCYTE SEDIMENTATION RATE (ESR) - Abnormal; Notable for the following components: ESR (SED RATE, ERYTHROCYTE SEDIMENTATION RATE) 22 (*) All other components within normal limits URINALYSIS REFLEX IF INDICATED BY ABNORMAL RESULTS - Abnormal; Notable for the following components: PROTEIN, RANDOM URINE 15 mg/dL (*) URINE BLOOD 150 /uL (*) URINE RBC'S 3-5 (*) CASTS 1-5/LPF Finely Granular Casts (*) All other components within normal limits CBC WITH AUTO DIFFERENTIAL - Abnormal; Notable for the following components: HEMOGLOBIN (HGB) 10.9 (*) HEMATOCRIT (HCT) 35.0 (*) NEUTROPHILS 84.1 (*) LYMPHOCYTES 9.8 (*) ABSOLUTE LYMPHOCYTES 0.62 (*) All other components within normal limits CULTURE, GRP A STREPTOCOCCUS, CULT ONLY COMPLETE BLOOD COUNT (CBC) WITH DIFF Narrative: The following orders were created for panel order CBC with Diff [id number]. Procedure Abnormality Status --------- ------ CBC with Auto Differential[[id number]] Abnormal Final result Please view results for these tests on the individual orders. EXTRA TUBES Narrative: The following orders were created for panel order Extra Tubes. Procedure Abnormality Status --------- ------ Blue Top Tube[[id number]] In process Gold Top Tube[[id number]] In process Lavender Top Tube[[id number]] In process MINT GREEN, LI HEPARIN/S...[[id number]] In process Please view results for these tests on the individual orders. POCT INFLUENZA A & B POCT URINE HCG () POCT GROUP A STREP SCREEN RAPID BLUE TOP TUBE GOLD TOP TUBE LAVENDER TOP TUBE MINT GREEN, LI HEPARIN/SST TOP TUBE CBC with Diff [id number] Final Result CMP Final Result Sed Rate (Esr) [id number] Final Result URINALYSIS REFLEX IF INDICATED BY ABNORMAL RESULTS Final Result EKG 12 LEAD (Results Pending) Extra Tubes (Results Pending) ECG Report Name: Carito Rausch Age: 28 y.o. Gender: female Time:09:00 Rate: 80 Rhythm: sinus rhythm Other Findings: normal axis, normal intervals, no ST or T wave changes. Reviewed: previous chart, nursing note and vitals Reviewed previous: labs Interpretation: labs and ECG IMPRESSION: URI. Sinusitis 08:48 At bedside for initial evaluation. We discussed the results of her laboratory findings. Patient currently has no signs of renal insufficiency, infection, influenza, strep. She complains mostly of sinus congestion with ear pain. We recommend that she use the sinus rinse to clear her sinuses out. She is using her Flonase and we added some Afrin for the next 3 days. Patient of felt better knowing that her lupus was in control this time and will try the treatment that we recommended. She will follow up with PCP she also noted that she has been on Amoxil CAM she has been having suprapubic pains and has some microscopic hematuria. We noted that she should talk with her lead oracle developer but taking off the nonsteroidals. By signing my name below, I, Gordon Linton, attest that this documentation has been prepared under thedirection and in the presence of Dr. Boyd MD. Electronically Signed: Karlie Parisi. 04/12/19 10:40 AM I, Dr. Nix, personally performed the services described in this documentation. All medical record entries made by the scribe were at my direction and in my presence. I have reviewed the chart and discharge instructions and agree that the record reflects my personal performance and is accurate and complete. Dr. Nix, 04/12/19 10:40 AM ONS SERVER * Leti Ames RN - 04/12/2019 8:[address] Nix at bedside for assessment. ONS SERVER * Darwin Moreno RN - 04/12/2019 8:37 AM CST pt c/o's generalized body aches, ear pain, vomiting, painful urination off and on for the last 4 days. she denies cough or runny nose. resp unlabored. she was seen in an urgent care clinic yesterday and told she had a virus. she left work early to be checked. ONS SERVER documented in this encounter Plan of Treatment Not on file documented as of this encounter Procedures Procedure Name Priority Date/Time Associated Diagnosis Comments EXTRA TUBES STAT 04/12/2019 9:17 AM SUMMONS SERVER LING HERNANDEZ HEPARIN/SST TOP TUBE STAT 04/12/2019 9:17 AM SUMMONS SERVER GOLD TOP TUBE STAT 04/12/2019 9:17 AM SUMMONS SERVER BLUE TOP TUBE STAT 04/12/2019 9:17 AM SUMMONS SERVER LAVENDER TOP TUBE STAT 04/12/2019 9:1 7 AM SUMMONS SERVER CBC WITH AUTO DIFFERENTIAL STAT 04/12/2019 9:17 AM SUMMONS SERVER ERYTHROCYTE SEDIMENTATION RATE (ESR) STAT 04/12/2019 9:17 AM SUMMONS SERVER CMP (COMPREHENSIVE METABOLIC PANEL) STAT 04/12/2019 9:17 AM SUMMONS SERVER COMPLETE BLOOD COUNT (CBC) WITH DIFF STAT 04/12/2019 9:17 AM SUMMONS SERVER EKG 12 LEAD STAT 04/12/2019 9:00 AM SUMMONS SERVER URINALYSIS REFLEX IF INDICATED BY ABNORMAL RESULTS STAT 04/12/2019 8:55 AM SUMMONS SERVER POCT INFLUENZA A & B STAT 04/12/2019 8:55 AM SUMMONS SERVER POCT GROUP A STREP SCREEN RAPID STAT 04/12/2019 8:55 AM SUMMONS SERVER CULTURE, GRP A STREPTOCOCCUS, CULT ONLY STAT 04/12/2019 8:55 AM SUMMONS SERVER POCT URINE HCG () STAT 04/12/2019 8:55 AM SUMMONS SERVER documented in this encounter Results * LING HERNANDEZ HEPARIN/SST TOP TUBE (04/12/2019 9:17 AM SUMMONS SERVER) Blood specimen (specimen) No Phlebotomy Charged / Unknown 04/12/2019 9:17 AM SUMMONS SERVER 04/12/2019 9:34 AM SUMMONS SERVER us Cirilo Nix MD HEMATOLOGY ORDERABLES Briana l Result [facility] [place] [address] * Lavender Top Tube (04/12/2019 9:17 AM SUMMONS SERVER) Blood specimen (specimen) No Phlebotomy Charged / Unknown 04/12/2019 9:17 AM SUMMONS SERVER 04/12/2019 9:34 AM SUMMONS SERVER us Cirilo Nix MD HEMATOLOGY ORDERABLES Briana l Result Performing Organization Address City/[facility]/ZIP Co de Phone Number [facility] [address] [place] [address] * Gold Top Tube (04/12/2019 9:17 AM SUMMONS SERVER) Blood specimen (specimen) No Phlebotomy Charged / Unknown 04/12/2019 9:17 AM SUMMONS SERVER 04/12/2019 9:34 AM SUMMONS SERVER us Cirilo Nix MD CHEMISTRY ORDERABLES Final Result Performing Organization Address City/[facility]/ZIP Co de Phone Number [facility] [address] [place] [address] * Blue Top Tube (04/12/2019 9:17 AM SUMMONS SERVER) Blood specimen (specimen) No Phlebotomy Charged / Unknown 04/12/2019 9:17 AM SUMMONS SERVER 04/12/2019 9:34 AM SUMMONS SERVER us Cirilo Nix MD HEMATOLOGY ORDERABLES Briana l Result Performing Organization Address City/[facility]/ZIP Co de Phone Number [facility] [address] [place] [address] * (ABNORMAL) CBC with Auto Differential (04/12/2019 9:17 AM SUMMONS SERVER) WBC 6.32 4.00 - 12.00 10(3)/mcL 04/12/2019 9:38 AM SUMMONS SERVER [facility] RBC 3.80 3.80 - 5.30 10(6)/[facility] 04/12/2019 9:[address] [facility] HEMOGLOBIN (HGB) 10.9(L) 12.0 - 15.8 g/dL 04/12/2019 9:[address] [facility] HEMATOCRIT (HCT) 35.0(L) 36.0 - 47.0 % 04/12/2019 9:[address] [facility] MCV 92.1 82.0 - 96.0 fL 04/12/2019 9:[address] [facility] MCH 28.7 26.0 - 34.0 pg 04/12/2019 9:[address] [facility] MCHC 31.1 31.0 - 36.0 g/dL 04/12/2019 9:[address] [facility] PLATELET COUNT 265 140 - 440 10(3)/[facility] 04/12/2019 9:[address] [facility] RDW 14.1 11.8 - 15.5 % 04/12/2019 9:[address] [facility] MPV 9.7 9.7 - 12.4 fL 04/12/2019 9:[address] [facility] NEUTROPHILS 84.1(H) 47.0 - 73.0 % 04/12/2019 9:[address] [facility] LYMPHOCYTES 9.8(L) 18.0 - 42.0 % 04/12/2019 9:[address] [facility] MONOCYTES 5.4 4.0 - 12.0 % 04/12/2019 9:[address] [facility] EOSINOPHILS 0.5 0.0 - 5.0 % 04/12/2019 9:[address] [facility] BASOPHILS 0.2 0.0 - 1.0 % 04/12/2019 9:[address] [facility] ABSOLUTE NEUTROPHILS 5.32 1.60 - 7.70 10(3)/mcL 04/12/2019 9:[address] [facility] ABSOLUTE LYMPHOCYTES 0.62(L) 1.30 - 3.20 10(3)/mcL 04/12/2019 9:38 AM SUMMONS SERVER [facility] ABSOLUTE MONOCYTES 0.34 0.20 - 1.00 10(3)/mcL 04/12/2019 9:38 AM SUMMONS SERVER [facility] ABSOLUTE EOSINOPHIL 0.03 0.00 - 0.40 10(3)/mcL 04/12/2019 9:38 AM SUMMONS SERVER [facility] ABSOLUTE BASOPHILS 0.01 0.00 - 0.10 10(3)/[facility] 04/12/2019 9:38 AM SUMMONS SERVER [facility] NRBC PER 100 WBC 0 04/12/19 20 9:38 AM SUMMONS SERVER [facility] Blood specimen (specimen) Venipuncture / Unknown 04/12/2019 9:17 AM SUMMONS SERVER 04/12/2019 9:33 AM SUMMONS SERVER Cirilo Nix MD HEMATOLOGY ORDERABLES Briana l Result Performing Organization Address [facility]/ZIP Co de Phone Number [facility] [address] [place] [address] * (ABNORMAL) Sed Rate (Esr) [id number] (04/12/2019 9:17 AM SUMMONS SERVER) [facility] ESR (SED RATE, ERYTHROCYTE SEDIMENTATION RATE) 22(H) 0 - 20 mm/h 04/12/2019 10:35 AM SUMMONS SERVER [facility] Comment:Patients presenting with abnormally high or low RBC counts and other hemoglobinopathies could affect the results for the erythrocyte sedimentation rate (ESR). Results should be clinically correlated. Blood specimen (specimen) Venipuncture / Unknown 04/12/2019 9:17 AM SUMMONS SERVER 04/12/2019 9:33 AM SUMMONS SERVER Cirilo Nix MD HEMATOLOGY ORDERABLES Briana l Result Performing Organization Address City/[facility]/ZIP Co de Phone Number [facility] [address] [place] [address] * (ABNORMAL) CMP (04/12/2019 9:17 AM SUMMONS SERVER) SODIUM 139 136 - 144 mmol/L 04/12/2019 10:[address] [facility] POTASSIUM 3.7 3.5 - 5.1 mmol/L 04/12/2019 10:[address] [facility] CHLORIDE 102 100 - 110 mmol/L 04/12/2019 10:[address] [facility] CO2, VENOUS 26 22 - 32 mmol/L 04/12/2019 10:[address] [facility] ANION GAP 14.7 8.0 - 20.0 mmol/L 04/12/2019 10:[address] [facility] GLUCOSE 82 70 - 99 mg/dL 04/12/2019 10:[address] [facility] BUN 15 6 - 20 mg/dL 04/12/2019 10:[address] [facility] CREATININE, BLOOD 0.54(L) 0.60 - 1.10 mg/dL 04/12/2019 10:[address] [facility] BUN/CREATININE RATIO 28(H) 12 - 20 ratio 04/12/2019 10:[address] [facility] TOTAL PROTEIN 7.0 6.0 - 8.3 g/dL 04/12/2019 10:[address] [facility] ALBUMIN 4.1 3.5 - 5.2 g/dL 04/12/2019 10:[address] [facility] Comment: The colormetric methods used for the determination of Albumin may lead to falsely elevated test results in patients suffering from renal failure or insufficiency due to interference with other proteins. A/G RATIO 1.4 1.0 - 2.0 04/12/2019 10:[address] [facility] CALCIUM 9.3 8.9 - 10.3 mg/dL 04/12/2019 10:[address] [facility] T BILI 0.4 <=1.2 mg/dL 04/12/2019 10:[address] [facility] SGOT (AST) 13 <=32 U/L 04/12/2019 10:[address] [facility] SGPT (ALT) 18 <=33 U/L 04/12/2019 10:04 AM SUMMONS SERVER [facility] ALKALINE PHOSPHATASE 38 35 - 105 U/L 04/12/2019 10:04 AM SUMMONS SERVER [facility] GFR, EST. NONAFRICAN >60 >=60 04/12/2019 10:04 AM SUMMONS SERVER [facility] GFR, EST. >60 >=60 020 10:04 AM SUMMONS SERVER [facility] Comment: Creatinine Clearance is the preferred criteria for selecting drug dose adjustments in renally impaired patients. ??The GFR is provided as additional pertinent clinical information. GFR is reported in mL/min/1.73 sq m. Blood specimen (specimen) Venipuncture / Unknown 04/12/2019 9:17 AM SUMMONS SERVER 04/12/2019 9:33 AM SUMMONS SERVER Cirilo Nix MD CHEMISTRY ORDERABLES Final Result [facility] [address] [place] [address] * EKG 12 LEAD (04/12/2019 9:00 AM SUMMONS SERVER) Ventricular Rate BPM EXTERNAL EKG Atrial Rate BPM EXTERNAL EKG P-R Interval 130 ms EXTERNAL EKG QRS Duration 80 ms EXTERNAL EKG Q-T Duration 368 ms EXTERNAL EKG QTC CALCULATION 425 ms EXTERNAL EKG P [place] 44 degrees EXTERNAL EKG R [place] 36 degrees EXTERNAL EKG T [place] 8 degrees EXTERNAL EKG 04/12/2019 9:00 AM SUMMONS SERVER Impressions EXTERNAL EKG - 04/13/2019 8:08 AM SUMMONS SERVER Sinus rhythm Comparison Summary: No serial comparison made Summary: Normal ECG Confirmed by Lucía [email or web address] on 04/13/2019 8:08:47 AM Narrative Procedure Note Huseyin Castrejon MD - 04/13/2019 IMPRESSION: Sinus rhythm Comparison Summary: No serial comparison made Summary: Normal ECG Confirmed by Lucía Anand on 04/13/2019 8:08:47 AM us Cirilo Nix MD IMG ECG ORDERABLES Final R esult EXTERNAL EKG * Culture, Grp A Streptococcus, Cult Only (04/12/2019 8:55 AM SUMMONS SERVER) CULTURE RESULTS NO STREP PYOGENES (GROUP A BETA HEMOLYTIC STREP) ISOLATED AFTER 2 DAYS 04/14/2019 12:35 PM SUMMONS SERVER [facility] Culture of specimen by commercial kit (procedure) SPECIMEN FROM THROAT / Unknown Non-Phlebotomy Collection / Unknown 04/12/2019 8:55 AM SUMMONS SERVER 04/12/2019 9:32 AM SUMMONS SERVER us Cirilo Nix MD MICROBIOLOGY - GENERAL ORD ERABLES Final Result Performing Organization Address City/[facility]/ZIP Co de Phone Number [facility] [address] [place] [address], * POCT Group A Strep Screen Rapid (04/12/2019 8:55 AM SUMMONS SERVER) POC STREP SCRN Presumptive negative POC STREP SCREEN CONTROL Group Tester Pass 04/12/2019 8:55 AM SUMMONS SERVER us Cirilo Nix MD POINT OF CARE TESTING (MAN UAL) Final Result * POCT Urine HCG () (04/12/2019 8:55 AM SUMMONS SERVER) POC URINE Negative POC URINE CONTROL Group Tester Pass Urine specimen (specimen) 04/12/2019 8:55 AM SUMMONS SERVER us Cirilo Nix MD POINT OF CARE TESTING (MAN UAL) Final Result * POCT Influenza A & B (04/12/2019 8:55 AM SUMMONS SERVER) POC INFLU A Presumptive negative Group A POC INFLU B Presumptive negative Group B POC INFLUENZA CONTROL Group Tester Pass 04/12/2019 8:55 AM SUMMONS SERVER us Cirilo Nix MD POINT OF CARE TESTING (MAN UAL) Final Result * (ABNORMAL) URINALYSIS REFLEX IF INDICATED BY ABNORMAL RESULTS (04/12/2019 8:55 AM SUMMONS SERVER) SPECIFIC GRAVITY 1.015 1.003 - 1.030 04/12/2019 9:58 AM SUMMONS SERVER [facility] URINE PH 7.0 5.0 - 9.0 04/12/2019 9:58 AM SUMMONS SERVER [facility] WBC ESTERASE Negative Negative 04/12/2019 9:58 AM SUMMONS SERVER [facility] NITRITE Negative Negative 04/12/2019 9:58 AM [facility] PROTEIN, RANDOM URINE 15 mg/dL(A) Negative 04/12/2019 9:58 AM [facility] URINE GLUCOSE, QUAL Negative Negative 04/12/2019 9:[address] [facility] URINE KETONES Negative Negative 04/12/2019 9:58 AM SUMMONS SERVER [facility] UROBILINOGEN Normal Normal mg/dL 04/12/2019 9:[address] [facility] URINE BILIRUBIN Negative Negative 0 9:[address] [facility] URINE BLOOD 150 /uL(A) Negative pierre/ul 04/12/2019 9:[address] [facility] URINALYSIS COLOR Yellow 04/12/19 20 9:[address] [facility] URINALYSIS CLARITY Clear 04/12/2019 9:[address] [facility] WBC (Urine) Negative Negative, 0-5 /hpf 04/12/2019 9:[address] [facility] URINE RBC'S 3-5(A) Negative, 0-2 /hpf 04/12/2019 9:[address] [facility] EPITHELIAL CELLS Small amount /lpf 2019 9:58 AM SUMMONS SERVER [facility] BACTERIA, URINE Negative Negative /hpf 04/12/2019 9:[address] [facility] CASTS 1-5/LPF Finely Granular Casts(A) Negative /lpf 04/12/2019 9:58 AM SUMMONS SERVER [facility] Urine specimen (specimen) URINE SPECIMEN COLLECTION, CLEAN CATCH / Unknown Non-Phlebotomy Collection / Unknown 04/12/2019 8:55 AM SUMMONS SERVER 04/12/2019 9:33 AM SUMMONS SERVER us Cirilo Nix MD URINE ORDERABLES Final Res ult [facility] [facility] [place] [address] documented in this encounter Visit Diagnoses Diagnosis Acute upper respiratory infection- Primary Acute upper respiratory infections of unspecified site documented in this encounter Administered Medications Inactive Administered Medications - up to 3 most recent administrations Medication Order MAR Action Action Date Dose Rate Site oxymetazoline (AFRIN) 0.05 % nasal spray 2 [place] 2 [place], Nasal, ONCE, 1 dose, On 04/12/19 at 1100 Given 04/12/2019 11:01 AM SUMMONS SERVER 2 Sprays documented in this encounter Active and Recently Administered Medications Times are shown in SUMMONS SERVER. Scheduled Medication Order 04/10/2019 04/11/2019 04/12/2019 oxymetazoline (AFRIN) 0.05 % nasal spray 2 [place] (COMPLETED) 2 [place], Nasal, ONCE, 1 dose, On 04/12/19 at 1100 1101 (Given - Provid er: Leti Ames RN) documented in this encounter Additional Health Concerns Assessment Noted Time PHQ-9 Depression Total Score: 0 03/25/19 10:00 AM SUMMONS SERVER documented as of this encounter Care Teams Gravedigger Relationship Specialty Start Date End Date Gayla Barker, FAMILY SERVICE AIDE, RECREATION THERAPIST [address] [place] [address] PCP - General Advanced Practice Nurse 03/25/19 [id number] [phone]
--- OUTSIDE RECORDS SUMMARY | 2024-02-24 19:50 | XMS_ITS | Encounter Summary ---
Author Organization [facility] Address [address] [facility] [place] [address] Phone Care Team Providers Care Care Process Manager Name Role Phone Gayla Barker APRN, CNP Primary Care Provider Reason for Referral * Other (Routine) - Closed Specialty Diagnoses / Procedures Referred By Jud freeman Referred To Contact Pulmonology Diagnoses Shortness of breath Procedures COMPLETE PFT W + W/O BRONCHODILATOR Gayla Barker APRN, CNP Phone: tel: fax: Referral ID Status Reason Start Date Expiration Date Visits Re quested Visits Authorized [id number] Closed 03/25/2019 1 1 HANDISE PLANNER Reason for Visit * Reason Comments Preventive Care Dizziness Encounter Details Date Type Department Care Team (Late st Contact Info) Description 03/25/2019 9:45 AM MERCHANDISE PLANNER Office Visit [facility] [address] [place] [phone] Gayla Barker APRN, CNP [phone] [place], [place] [id number] Arthralgia of both knees (Primary Dx); Diarrhea, unspecified type; Preventative health care (Adult); Chronic fatigue; Dizziness; Shortness of breath; Chest pain, unspecified type; Palpitations; Myalgia, unspecified site Discharge Disposition: Discharged to home or Selfcare [...] on file Legal Sex Female 10:27 AM MERCHANDISE PLANNER Gender Identity Not on file Sexual Orientation Not on file COVID-19 Exposure Response Date Recorded In the last month, have you been in contact with someone who was confirmed or suspected to have Coronavirus / COVID-19? No / Unsure 07/13/2019 7:56 AM CDT documented as of this encounter Last Filed Vital Signs Vital Sign Reading Time Taken Comments Blood Pressure 92/58 03/25/2019 9:56 AM MERCHANDISE PLANNER Pulse 81 03/25/2019 9:56 AM MERCHANDISE PLANNER Temperature 36.9 ??C (98.5 ??F) 03/25/2019 9:56 AM CS T Respiratory Rate 20 03/25/2019 9:56 AM MERCHANDISE PLANNER Oxygen Saturation 98% 03/25/2019 9:56 AM MERCHANDISE PLANNER Inhaled Oxygen Concentration - - Weight 73 kg (161 lb) 03/25/2019 9:56 AM MERCHANDISE PLANNER Height 156.2 cm (5' 1.5 ) 03/25/2019 9:56 AM MERCHANDISE PLANNER Body Mass Index 29.93 03/25/2019 9:56 AM MERCHANDISE PLANNER documented in this encounter Functional Status documented as of this encounter Patient Instructions * Patient Instructions* Gayla Barker APN, CNP - 03/25/2019 9:45 AM MERCHANDISE PLANNER Event monitor Stress test Labs today PFT ordered GI referral Rheumatology referral - could come from a 309 number Follow up in one month HANDISE PLANNER HANDISE PLANNER documented in this encounter Progress Notes * Rima Junior - 03/25/2019 9:45 AM CST Carito Rausch is a 28 y.o. female with current BMI: Body mass index is 29.93 kg/m??. Interventions discussed including: encourage daily physical activity and well- balanced diet. Carito Rausch, 28 y.o., female is here for Preventive Care Medication Refills: Patient reports/denies need for medication refills. Orders Pended: no Requested Prescriptions No prescriptions requested or ordered in this encounter Home Medications Medication Sig Start Date End Date Taking? Authorizing Provider ALPRAZolam (XANAX) 0.25 MG Tablet Take 0.25 mg by mouth. Yes ProviderIsis MD hydroxychloroquine (PLAQUENIL) 200 MG Tablet Take 200 mg by mouth. 01/29/19 Yes ProviderIsis MD omeprazole (PRILOSEC) 20 MG CAPSULE DELAYED RELEASE TK 1 C PO QD 03/06/19 Yes ProviderIsis MD predniSONE (DELTASONE) 10 MG Tablet Take 3 tabs daily x3 days 02/25/19 Yes ProviderIsis MD predniSONE (DELTASONE) 5 MG Tablet TK 1 T PO QD 03/07/19 Yes ProviderIsis MD There are no discontinued medications. I have reviewed the home medication list with the patient and have reconciled discrepancies. The list is accurate to the best of my knowledge. Smoking Status: Social History Tobacco Use ??? Smoking status: Never Smoker ??? Smokeless tobacco: Never Used Substance Use Topics ??? Alcohol use: Yes Frequency: Monthly or less ??? Drug use: Never Smoking Cessation Counseling Given: no Health Care Maintenance: Health Maintenance Due Topic Date Due ??? DTaP/Tdap/Td Immunization (1 - Tdap) 05/11/1999 ??? Human Papillomavirus (HPV) Immunization (1 - Female 2-dose series) 05/11/2003 ??? Pap Smear 2013 ??? Influenza Immunization (1) 10/27/2018 Orders Pended: no The following BPA's have been addressed with the patient today:tdap/pap/flu HANDISE PLANNER * Gayla Barker, PENNY, TANNING WHEEL FILLER - 03/25/2019 9:45 AM CST Subjective: Patient presents to [facility]. 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 She constantly has chest pains and palpitations, headaches, dizziness and fatigue. She states about 5 months ago she started having seizu res. She was diagnosed with lupus when all this started but her lupus panel was negative. She has had a negative head CT and MRI. She has chronic diarrhea and nausea. She states her father of a heart attack at 45. Her mother is was also . She states she never feels good and never feels like herself. Review of Systems Constitutional: Positive for fatigue. Respiratory: Positive for shortness of breath. Cardiovascular: Positive for chest pain and palpitations. Gastrointestinal: Positive for diarrhea and nausea. Negative for abdominal pain. Endocrine: Positive for cold intolerance and heat intolerance. Genitourinary: Negative. Musculoskeletal: Positive for arthralgias and joint swelling. Neurological: Positive for dizziness, tremors, seizures, weakness and headaches. Psychiatric/Behavioral: Positive for dysphoric mood. The patient is nervous/anxious. Objective: Physical Exam Vitals signs and nursing note reviewed. Constitutional: Appearance: Normal appearance. She is normal weight. Eyes: Extraocular Movements: Extraocular movements intact. Pupils: Pupils are equal, round, and reactive to light. Neck: Vascular: No carotid bruit. Cardiovascular: Rate and [...] Thought content normal. Judgment: Judgment normal. BP 92/58 (BP Location: Right Arm, BP Position: Sitting, BP Cuff Size: Regular) Pulse 81 Temp 98.5 ??F (36.9 ??C) (Oral) Resp 20 Ht 5' 1.5 (1.562 m) Wt 161 lb (73 kg) LMP 03/18/2019 SpO2 98% BMI 29.93 kg/m?? Assessment and Plan See Diagnoses, Orders, Follow-up, and Instructions Encounter Diagnoses Name Primary? Arthralgia of both knees Yes ??? Diarrhea, unspecified type ??? Preventative health care (Adult) ??? Chronic fatigue ??? Dizziness ??? Shortness of breath ??? Chest pain, unspecified type ??? Palpitations ??? Myalgia, unspecified site Event monitor Stress test Labs today PFT ordered GI referral Rheumatology referral - could come from a 309 number Follow up in one month Documentation for this visit on 03/25/2019 was completed using a template. I have seen and examined the patient. Everything documented was personally performed at this visit with the necessary additions, deletions and changes made as appropriate. HANDISE PLANNER documented in this encounter Miscellaneous Notes * Addendum Note - Jak Whittington CMA - 03/25/2019 9:45 AM CSTAddended by: JAK WHITTINGTON on: 06/23/2019 08:03 AM Modules accepted: Orders * Addendum Note - Jak Whittington CMA - 03/25/2019 9:45 AM CSTAddended by: JAK WHITTINGTON on: 07/23/2019 07:54 AM Modules accepted: Orders documented in this encounter Plan of Treatment Not on file documented as of this encounter Procedures Procedure Name Priority Date/Time Associated Diagnosis Comments POCT GLUCOSE Routine 03/25/2019 11:04 AM MERCHANDISE PLANNER Dizziness documented in this encounter Results * (ABNORMAL) PHUONG PANEL SSA, SSB, SM, APPLIED BIOLOGY PROFESSOR, JO1, SCL70 (03/26/2019 11:56 AM MERCHANDISE PLANNER) DNA AB, DOUBLE STRAND 47(H) <5 IU/mL 03/27/2019 2:34 PM MERCHANDISE PLANNER [facility] Comment: <= 4 Negative 5-9 Indeterminate >= 10 Positive CHROMATIN AB 4.3(H) <1.0 AI 03/27/2019 2:34 PM MERCHANDISE PLANNER [facility] RIBOSOMAL P AB <0.2 <1.0 AI 03/27/2019 2:34 PM MERCHANDISE PLANNER [facility] SS-A <0.2 <1.0 AI 03/27/2019 2:34 PM MERCHANDISE PLANNER [facility] SS-B <0.2 <1.0 AI 03/27/2019 2:34 PM MERCHANDISE PLANNER [facility] CENTROMERE B AB <0.2 <1.0 AI 0 2:34 PM MERCHANDISE PLANNER [facility] SM ANTIBODY <0.2 <1.0 AI 03/27/2019 2:34 PM MERCHANDISE PLANNER [facility] SM APPLIED BIOLOGY PROFESSOR <0.2 <1.0 AI 03/27/2019 2:34 PM [facility] APPLIED BIOLOGY PROFESSOR AB 1.6(H) <1.0 AI 03/27/2019 2:34 PM MERCHANDISE PLANNER [facility] SCL-70 <0.2 <1.0 AI 03/27/2019 2:34 PM [facility] MELISA-1 <0.2 <1.0 AI 03/27/2019 2:34 PM [facility] Blood specimen (specimen) Venipuncture / Unknown 03/26/2019 11:56 AM MERCHANDISE PLANNER 03/26/2019 2:56 PM MERCHANDISE PLANNER Narrative [facility] - 03/27/2019 2:34 PM MERCHANDISE PLANNER Antibody testing was performed by multiplex flow immunoassay on the [employer] platform. us Gayla Barker APRN, CNP IMMUNOLOGY ORDERABLES F inal Result [facility] [address] [place] [address], [place] * (ABNORMAL) LIPID PANEL (03/26/2019 11:56 AM MERCHANDISE PLANNER) CHOLESTEROL 179 <=200 mg/dL 03/26/2019 3:32 PM MERCHANDISE PLANNER [facility] TRIGLYCERIDES 155(H) <150 mg/dL 03/26/2019 3:32 PM MERCHANDISE PLANNER [facility] HDL CHOLESTEROL 63.2 >40 mg/dL 0 3:32 PM MERCHANDISE PLANNER [facility] LDL 85 5 - 130 mg/dL 03/26/2019 3:32 PM MERCHANDISE PLANNER [facility] VLDL 31 5 - 55 mg/dL 03/26/2019 3:32 PM MERCHANDISE PLANNER [facility] CHOL/HDL RATIO 2.8 0.0 - 4.4 03/26/2019 3:32 PM MERCHANDISE PLANNER [facility] NON-HDL CHOLESTEROL 115.8 <130 mg/dL 03/26/2019 3:32 PM MERCHANDISE PLANNER [facility] LIPID FASTING 03/26/2019 3:32 PM MERCHANDISE PLANNER [facility] Blood specimen (specimen) Venipuncture / Unknown 03/26/2019 11:56 AM MERCHANDISE PLANNER 03/26/2019 2:56 PM MERCHANDISE PLANNER Gayla Barker APRN, CNP CHEMISTRY ORDERABLES [facility] Result [facility] [address] [place] [address] * Complete PFT W + W/O Bronchodilator (03/26/2019 11:32 AM MERCHANDISE PLANNER) [facility] FVC 2.75 L FVC %Predicted 84 % FVC Post-Bronchodila tor n/a (L) FEV1 2.69 L FEV1 %Predicted 94 % FEV1 Post-Bronchodila tor n/a (L) FEV1/FVC 98 % FEF 25-75% 141 L/sec TLC 3.08 L TLC %Predicted 70 (Pleth) (L) RV 0.23 L RV %Predicted 20 (Pleth) (L) Airway Resistance 2.32 cmH2O/L/s DLCO 17.8 ml/min/mmH g DLCO %Predicted 69 (ml/min/mm Hg) Gayla Barker APRN, HARSHA PFT ORDERABLES Final R esult * RESPIRATORY ALLERGY PANEL IGE (03/25/2019 12:03 PM MERCHANDISE PLANNER) [facility] IGE 13 <=214 kU/L 03/26/2019 3:07 PM MERCHANDISE PLANNER [facility] DUST MITE D. PTERONY <0.35 <0.35 kU/L 03/26/2019 3:07 PM MERCHANDISE PLANNER [facility] DUST MITE D. FARINAE <0.35 <0.35 kU/L 03/26/2019 3:07 PM MERCHANDISE PLANNER [facility] ANIMAL CAT DANDER <0.35 <0.35 kU/L 020 3:07 PM MERCHANDISE PLANNER [facility] ANIMAL DOG DANDER <0.35 <0.35 kU/L 020 3:07 PM MERCHANDISE PLANNER [facility] GRASS THEO <0.35 <0.35 kU/L 03/26/2019 3:07 PM MERCHANDISE PLANNER [facility] INSECT COCKROACH <0.35 <0.35 kU/L 03/26/19 20 3:07 PM MERCHANDISE PLANNER [facility] MOLD CLADOSPORIUM <0.35 <0.35 kU/L 020 3:07 PM MERCHANDISE PLANNER [facility] MOLD ASPERGILLUS <0.35 <0.35 kU/L 03/26/19 20 3:07 PM MERCHANDISE PLANNER [facility] MOLD ALTERNARIA <0.35 <0.35 kU/L 0 3:07 PM MERCHANDISE PLANNER [facility] TREE MAPLE <0.35 <0.35 kU/L 03/26/2019 3:07 PM MERCHANDISE PLANNER [facility] TREE HICKORY, PECAN <0.35 <0.35 kU/L 03/26/2019 3:07 PM MERCHANDISE PLANNER [facility] TREE JUNIPER, CEDAR <0.35 <0.35 kU/L 03/26/2019 3:07 PM MERCHANDISE PLANNER [facility] TREE OAK <0.35 <0.35 kU/L 03/26/2019 3:07 PM MERCHANDISE PLANNER [facility] WEED COMMON RAGWEED <0.35 <0.35 kU/L 03/26/2019 3:07 PM MERCHANDISE PLANNER [facility] WEED PIGWEED <0.35 <0.35 kU/L 03/26/2019 3:07 PM MERCHANDISE PLANNER [facility] TREE ELM <0.35 <0.35 kU/L 03/26/2019 3:07 PM MERCHANDISE PLANNER [facility] WEED RG TEIXEIRA ELDER <0.35 <0.35 kU/L 03/26/2019 3:07 PM MERCHANDISE PLANNER [facility] GRASS BERMUDA <0.35 <0.35 kU/L 03/26/2019 3:07 PM MERCHANDISE PLANNER [facility] TREE COTTONWOOD <0.35 <0.35 kU/L 0 3:07 PM MERCHANDISE PLANNER [facility] TREE MAPLE LEAF SYCAMORE <0.35 <0.35 kU/L 03/26/2019 3:07 PM MERCHANDISE PLANNER [facility] TREE MULBERRY <0.35 <0.35 kU/L 03/26/2019 3:07 PM MERCHANDISE PLANNER [facility] MOLD P. NOTATUM <0.35 <0.35 kU/L 0 3:07 PM MERCHANDISE PLANNER [facility] WEED: LUXEMBOURGER THISTLE <0.35 <0.35 kU/L 03/26/2019 3:07 PM MERCHANDISE PLANNER [facility] TREE WALNUT <0.35 <0.35 kU/L 03/26/2019 3:07 PM MERCHANDISE PLANNER [facility] Tree White Khurram Ige <0.35 <0.35 kU/L 03/26/2019 3:07 PM MERCHANDISE PLANNER [facility] MOUSE URINE PROTEINS <0.35 <0.35 kU/L 03/26/2019 3:07 PM MERCHANDISE PLANNER [facility] Blood specimen (specimen) Venipuncture / Unknown 03/25/2019 12:03 PM MERCHANDISE PLANNER 03/25/2019 1:48 PM MERCHANDISE PLANNER Narrative [facility] - 03/26/2019 3:07 PM MERCHANDISE PLANNER IgE Class ?kU/L ?Level of IgE AB 0 ?<0.35 ? Absent/undetectable 1 ? 0.35-0.70 ?Low Level 2 ? 0.71-3.50 ?Moderate Level 3 ? 3.51-17.50 ? High Level 4 ? 17.51-50.00 ?Very High Level 5 ? 50.01-100.00 ? Very High Level 6 ?>100.00 ? Very High Level Gayla Barker APRN, CNP CHEMISTRY ORDERABLES Fi nal Result Performing Organization Address [facility]/State/[facility] Co de Phone Number [facility] [address] [place] [address], * LYME ANTIBODY (BORRELIA) SCREEN (03/25/2019 12:03 PM MERCHANDISE PLANNER) LYME ANTIBODY 0.49 <0.91 Immune Status Ratio 03/26/2019 10:00 AM MERCHANDISE PLANNER [facility] Blood specimen (specimen) Venipuncture / Unknown 03/25/2019 12:03 PM MERCHANDISE PLANNER 03/25/2019 1:49 PM MERCHANDISE PLANNER Narrative [facility] - 03/26/2019 10:00 AM MERCHANDISE PLANNER <=0.90 ? Negative for B. burgdorferi IgG/IgM antibodies by Mary. ??Result does not exclude B. burgdorferi infection. ??An additional specimen should be tested within 2-4 weeks if early infection suspected. 0.91-1.09 ??Equivocal for B. burgdorferi IgG/IgM antibodies by Mary. ??An additional specimen should be tested within 2-4 weeks if early infection suspected. ??[facility] recommends supplemental Western-Blot testing. >=1.10 ??Positive for B. burgdorferi IgG/IgM antibodies by Mary. ??CDC recommends supplemental Western-Blot testing. Gayla Barker APRN, CNP IMMUNOLOGY ORDERABLES F inal Result Performing Organization Address City/[facility] Co de Phone Number [facility] [address] [place] [address], [place] * RHEUMATOID FACTOR (RFQT) QUANT (03/25/2019 12:03 PM MERCHANDISE PLANNER) Pathologist [facility] [place] RHEUMATOID FACTOR QT <=10 <14 IU/mL 03/25/2019 2:53 PM MERCHANDISE PLANNER [facility] Blood specimen (specimen) Venipuncture / Unknown 03/25/2019 12:03 PM MERCHANDISE PLANNER 03/25/2019 1:48 PM MERCHANDISE PLANNER Narrative [facility] - 03/25/2019 2:53 PM MERCHANDISE PLANNER RHEUMATOID FACTORS CAN BE FOUND IN RHEUMATOID ARTHRITIS, SYPHILIS, VIRAL INFECTIONS, LEPROSY, CHRONIC LIVER DISEASE, NEOPLASMS, AND OTHER INFLAMMATORY CONDITIONS. RF PREVALENCE ALSO INCREASES WITH AGE. THUS A POSITIVE TEST IS NOT RESTRICTED TO RA. CONVERSELY, A NEGATIVE TEST DOES NOT RULE OUT RA, RHEUMATOID FACTORS ARE NOT DETECTABLE IN 10% OF ADULTS WITH THE DISEASE. Gayla Barker APRN, CNP CHEMISTRY ORDERABLES Fi nal Result Performing Organization Address [facility] Co de Phone Number [facility] [address] [place] [address] * (ABNORMAL) CMP (COMPREHENSIVE METABOLIC PANEL) (03/25/2019 12:03 PM MERCHANDISE PLANNER) Pathologist [facility] [place] SODIUM 138 136 - 144 mmol/L 03/25/2019 2:47 PM MERCHANDISE PLANNER [facility] POTASSIUM 3.9 3.5 - 5.1 mmol/L 03/25/2019 2:47 PM MERCHANDISE PLANNER [facility] CHLORIDE 97(L) 100 - 110 mmol/L 03/25/2019 2:47 PM MERCHANDISE PLANNER [facility] CO2, VENOUS 29 22 - 32 mmol/L 03/25/2019 2:47 PM MERCHANDISE PLANNER [facility] ANION GAP 15.9 8.0 - 20.0 mmol/L 03/25/2019 2:47 PM MERCHANDISE PLANNER [facility] GLUCOSE 81 70 - 99 mg/dL 03/25/2019 2:47 PM [facility] BUN 15 6 - 20 mg/dL 03/25/2019 2:47 PM [facility] CREATININE, BLOOD 0.54(L) 0.60 - 1.10 mg/dL 03/25/2019 2:47 PM [facility] BUN/CREATININE RATIO 28(H) 12 - 20 ratio 03/25/2019 2:47 PM [facility] TOTAL PROTEIN 7.2 6.0 - 8.3 g/dL 03/25/2019 2:47 PM [facility] ALBUMIN 4.3 3.5 - 5.2 g/dL 03/25/2019 2:47 PM [facility] Comment: The colormetric methods used for the determination of Albumin may lead to falsely elevated test results in patients suffering from renal failure or insufficiency due to interference with other proteins. A/G RATIO 1.5 1.0 - 2.0 03/25/2019 2:47 PM [facility] CALCIUM 9.7 8.9 - 10.3 mg/dL 03/25/2019 2:47 PM [facility] T BILI 0.5 <=1.2 mg/dL 03/25/2019 2:47 PM [facility] SGOT (AST) 16 <=32 U/L 03/25/2019 2:47 PM [facility] SGPT (ALT) 23 <=33 U/L 03/25/2019 2:47 PM [facility] ALKALINE PHOSPHATASE 48 35 - 105 U/L 03/25/2019 2:47 PM [facility] GFR, EST. NONAFRICAN >60 >=60 03/25/2019 2:47 PM [facility] GFR, EST. >60 >=60 020 2:47 PM [facility] Comment: Creatinine Clearance is the preferred criteria for selecting drug dose adjustments in renally impaired patients. ??The GFR is provided as additional pertinent clinical information. GFR is reported in mL/min/1.73 sq m. Blood specimen (specimen) Venipuncture / Unknown 03/25/2019 12:03 PM MERCHANDISE PLANNER 03/25/2019 1:49 PM MERCHANDISE PLANNER Gayla Barker APRN, CNP CHEMISTRY ORDERABLES Fi nal Result [facility] [address] [place] [address] * (ABNORMAL) BARAK SCREEN MULTIPLEX W/REFLEX PHUONG (03/25/2019 12:03 PM MERCHANDISE PLANNER) BARAK SCR MULTIPLEX Positive(A ) Negative, See comment 03/26/2019 12:44 PM MERCHANDISE PLANNER [facility] Blood specimen (specimen) Venipuncture / Unknown 03/25/2019 12:03 PM MERCHANDISE PLANNER 03/25/2019 1:49 PM MERCHANDISE PLANNER Narrative [facility] - 03/26/2019 12:44 PM MERCHANDISE PLANNER Antibody testing was performed by multiplex flow immunoassay on the Datahero[employer] platform. Gayla Barker APRN, CNP IMMUNOLOGY ORDERABLES F inal Result Performing Organization Address [facility] Co de Phone Number [facility] [address] [place] [address], [place] * ERYTHROCYTE SEDIMENTATION RATE (ESR) (03/25/2019 12:03 PM MERCHANDISE PLANNER) ESR (SED RATE, ERYTHROCYTE SEDIMENTATION RATE) 10 0 - 20 mm/h 03/25/2019 3:28 PM MERCHANDISE PLANNER [facility] Comment:Patients presenting with abnormally high or low RBC counts and other hemoglobinopathies could affect the results for the erythrocyte sedimentation rate (ESR). Results should be clinically correlated. Blood specimen (specimen) Venipuncture / Unknown 03/25/2019 12:03 PM MERCHANDISE PLANNER 03/25/2019 1:47 PM MERCHANDISE PLANNER Gayla Barker APRN, CNP HEMATOLOGY ORDERABLES F inal Result Performing Organization Address City/[facility]/ZIP Co de Phone Number [facility] [address] [place] [address] * (ABNORMAL) C-REACTIVE PROTEIN (CRP) HIGH SENSITIVE (03/25/2019 12:03 PM MERCHANDISE PLANNER) CRP ULTRAQUANT 6.93(H) <5.00 mg/L 03/25/2019 9:29 PM MERCHANDISE PLANNER [facility] Blood specimen (specimen) Venipuncture / Unknown 03/25/2019 12:03 PM MERCHANDISE PLANNER 03/25/2019 1:48 PM MERCHANDISE PLANNER Gayla Barker APRN, CNP CHEMISTRY ORDERABLES Fi nal Result [facility] [address] [place] [address], * VITAMIN D, 25 HYDROXY TOTAL (03/25/2019 12:03 PM MERCHANDISE PLANNER) VITAMIN D, 25 HYDROX 33 >=30 ng/mL 03/25/2019 3:15 PM MERCHANDISE PLANNER [facility] Blood specimen (specimen) Venipuncture / Unknown 03/25/2019 12:03 PM MERCHANDISE PLANNER 03/25/2019 1:48 PM MERCHANDISE PLANNER Narrative [facility] - 03/25/2019 3:15 PM MERCHANDISE PLANNER Published reference ranges for Vitamin D vary depending on time and place and method of testing, and on patient's age, sex, ethnicity and levels of other measured analytes such as parathormone, calcium and phosphorus. ??The result should be evaluated in conjunction with clinical findings and suspicions. [employer] and Endocrine Clinical Practice Guidelines: Status Vitamin D levels (ng/mL) Deficient <=20 At risk of inadequacy 21-29 Sufficient 30-100 Centers of Disease Control and Prevention Guidelines: Status Vitamin D levels (ng/mL) Deficient <13 At risk of inadequacy 13-19 Sufficient 20-50 Possibly harmful >50 References: [employer], 2010 Dietary reference intakes for calcium and vitamin D. [place]: ??The National Academies Press. Niki M, Timmy N, Trudy SHELTON, et al., Evaluation, treatment, and prevention of Vitamin D deficiency: an Endocrinology Clinical Practice Guideline. JCEM 2011 96: 7 1060-4512. Reagan A, Jos C, Db D, et al., Vitamin D Status: ??[place], 2000- 6, [facility] data brief, no. 59, [place] Ananth: ??Formerly [facility] Statistics. 2010. us Gayla Barker APRN, CNP CHEMISTRY ORDERABLES Fi nal Result Performing Organization Address City/[facility]/ZIP Co de Phone Number [facility] [address] [place] [address] * VITAMIN B12 (03/25/2019 12:03 PM MERCHANDISE PLANNER) VITAMIN B12 803 243 - 894 pg/mL 03/25/2019 3:15 PM MERCHANDISE PLANNER [facility] Blood specimen (specimen) Venipuncture / Unknown 03/25/2019 12:03 PM MERCHANDISE PLANNER 03/25/2019 1:48 PM MERCHANDISE PLANNER us Gayla Barker APRN, CNP CHEMISTRY ORDERABLES Fi nal Result Performing Organization Address City/[facility] Co de Phone Number [facility] [address] [place] [address] * POCT GLUCOSE (03/25/2019 11:04 AM MERCHANDISE PLANNER) GLUCOSE 96 70 - 99 mg/dL 03/25/2019 11:0 4 AM MERCHANDISE PLANNER us Gayla Barker APRN, CNP POINT OF CARE TESTING ( MANUAL) Final Result documented in this encounter Visit Diagnoses Diagnosis Arthralgia of both knees- Primary Diarrhea, unspecified type Preventative health care (Adult) Routine general medical examination at a health care facility Chronic fatigue Other malaise and fatigue Dizziness Dizziness and giddiness Shortness of breath Chest pain, unspecified type Palpitations Myalgia, unspecified site documented in this encounter Additional Health Concerns Infection Onset Date Last Indicated Resolved Time C. difficile Rule-Out 07/13/2019 07/13/20192019 12:30 PM CDT Assessment Noted Time PHQ-9 Depression Total Score: 0 03/25/19 10:00 AM MERCHANDISE PLANNER documented as of this encounter Care Teams Care Process Manager Relationship Specialty Start Date End Date Gayla Barker, PROSTHODONTIST, TANNING WHEEL FILLER [address] [place] [address] PCP - General Advanced Practice Nurse 03/25/19 documented as of this encounter
--- OUTSIDE RECORDS SUMMARY | 2024-02-24 19:58 | XMS_ITS | Encounter Summary ---
Author Organization [facility] Address [address] [place] [address] Phone Care Team Providers Care Textile Converter Name Role Phone Huseyin Dangelo MD Unavailable [phone] Brian Mon MD Primary Care Provider + Ernie Shaw MD Unavailable [phone] Encounter Details Date Type Department Care Team (Late st Contact Info) Description 06/16/2023 Orders Only [facility] Endocrinology Metabolism and Lipid [address] [facility] Advanced Medicine 13th [place] [address] [place] [address] Matt Lakhani MD [address] [place] [address] Gume disease (HCC) (Primary Dx) Social History Tobacco Use Types Packs/Day Years Used Date Smoking Tobacco: Former Cigarettes Q uit: 12/28/2018 Smokeless Tobacco: Never Alcohol Use Standard Drinks/Week Comments Yes 0 (1 standard drink = 0.6 oz pur e alcohol) occasionally Social Connection and Isolat ion Panel [NHANES] Answer Date Recorded In a typical week, how many times do you talk on the phone with family, friends, or neighbors? More than three times a week 01/01/2021 Frequency of Social Gatherin gs with Friends and Family Not on file 01/01/2021 Attends Sabianism Services Not on file 01/01 Active Member of Clubs or Organizations Not on f ile 01/01/2021 Attends Club or Organization Meetings Not on catarina e 01/01/2021 Are you , , di vorced, , never , or living with a partner? 01/01/2021 AUDIT-C Answer Date Recorded Q1: How often do you have a drink containing alc ohol? Never 01/14/2021 Average Number of Drinks Not on file 021 Frequency of Binge Drinking Not on file 12/27 Overall Financial Resource Strain (CARDIA) Answe r Date Recorded How hard is it for you to pa y for the very basics like food, housing, medical care, and heating? Not hard at all 01/01/2021 PHQ-2 Answer Date Recorded PHQ-2 Total Score (If total score is 3 or more points, staff should administer the PHQ-9) 0 05/25/2019 Hunger Vital Sign Answer Date Recorded Within the past 12 months, y ou worried that your food would run out before you got the money to buy more. Never true 01/02/20 21 Within the past 12 months, t he food you bought just didn't last and you didn't have money to get more. Never true 01/01/2021 PRAPARE - Transportation Answer Date Re corded In the past 12 months, has l ack of transportation kept you from medical appointments or from getting medications? No 07/2020 In the past 12 months, has l ack of transportation kept you from meetings, work, or from getting things needed for daily living? No 01/01/2021 Housing Stability Vital Sign Answer Mateo e Recorded In the last 12 months, was t here a time when you were not able to pay the mortgage or rent on time? No 01/01/2021 Number of Places Lived in the Last Year Not on f ile 01/01/2021 In the last 12 months, was t here a time when you did not have a steady place to sleep or slept in a senior care (including now)? No 01/01/2021 Sharon Depression Scale Answer Date Recorded Sharon Depression Scale Total 11 01/11/2021 The thought of harming myself has occurred to me . 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 documented in this encounter Plan of Treatment Not on file documented as of this encounter Visit Diagnoses Diagnosis [place] disease (HCC)- Primary Glucocorticoid deficiency documented in this encounter Discontinued Medications Medication Sig Discontinue Reason Start Date End Da te predniSONE (DELTASONE) 5 mg tablet Take 1 tablet (5 mg) by mouth daily 05/15/2023 06/16/2023 documented as of this encounter Care Teams Textile Converter Relationship Specialty [place] [address] [address] [place] [address] PCP - General 07/04/19 [place] [address] [address] [place] [address] 11/16/18 Ernie Shaw MD [address] [place] [address] [address] [facility] [place] [address] Roaster Operator Obstetrics and Gynecology 06/10/20 documented as of this encounter
--- OUTSIDE RECORDS SUMMARY | 2024-02-24 19:58 | XMS_ITS | Encounter Summary ---
Author Organization [facility] Address [address] [place] [address] Care Team Providers Care Administrative Support Assistant Name Role Phone Huseyin Dangelo MD Unavailable [phone] Brian Mon MD Primary Care Provider + Ernie Shaw MD Unavailable [phone] Encounter Details Date Type Department Care Team (Latest Contact Info) Description 10/26/2022 3:50 PM CDT - 10/26/2022 11:59 PM CDT Hospital Encounter [address] [address] Other systemic lupus erythematosus with other organ involvement (HCC) Discharge Disposition: Discharge to home or self care Social History Tobacco Use Types Packs/Day Years [...] and Family Not on file 01/01/2021 Attends Hoahaoism Services Not on file 01/01 Active Member [...] place to sleep or slept in a long-term (including now)? No 01/01/2021 Killeen Depression Scale Answer Date Recorded Killeen Depression Scale Total 11 01/11/2021 The thought of harming myself has occurred to me . Never 01/11/2021 Personal Safety Answer Date Recorded Have you ever been in or are you currently in a harmful physical or emotional relationship or is someone making you feel afraid or unsafe? 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 Repeat in 7 days if symptoms persist. 2 tablet 03/23/2022 4 hydrOXYchloroQUINE (PLAQUENIL) 200 mg tabletIndications: Systemic Lupus Erythematosus Take 1 tablet (200 mg total) by mouth daily 30 tablet 10/26/2022 4 naproxen (NAPROSYN) 500 mg tablet Take 1 tablet (500 mg total) by mouth 2 (two) times a day as needed for pain Take with food. 30 tablet 03/25/2022 4 predniSONE (DELTASONE) 5 mg tablet Take 1 tablet by mouth once daily 90 tablet 08/14/2022 3 terconazole (TERAZOL 3) 80 mg vaginal suppository Insert 1 suppository (80 mg total) into the vagina daily 03/17/2022 4 tobramycin (TOBREX) 0.3 % ophthalmic solution every 4 (four) hours 06/08/2022 4 documented as of this encounter Discharge Disposition Disposition Code Departure Means Destination Discharge to home or self care documented in this encounter Plan of Treatment Not on file documented as of this encounter Procedures Procedure Name Priority Date/Time Associated Diagnosis Comments ANTI-DOUBLE STRANDED DNA ANTIBODIES Routine 10/26/2022 3:50 PM CDT Other systemic lupus erythematosus with other organ involvement (HCC) C4 COMPLEMENT Routine 10/26/2022 3:50 PM CDT Other systemic lupus erythematosus with other organ involvement (HCC) ERYTHROCYTE SEDIMENTATION RATE Routine 10/26/2022 3:50 PM CDT Other systemic lupus erythematosus with other organ involvement (HCC) C3 COMPLEMENT Routine 10/26/2022 3:50 PM CDT Other systemic lupus erythematosus with other organ involvement (HCC) URINALYSIS AND REFLEX TO MICROSCOPIC AND CULTURE Routine 10/26/2022 3:37 PM CDT Other systemic lupus erythematosus with other organ involvement (HCC) PROTEIN / CREATININE RATIO, URINE, RANDOM Routine 10/26/2022 3:37 PM CDT Other systemic lupus erythematosus with other organ involvement (HCC) documented in this encounter Results * C3 complement (10/26/2022 3:50 PM CDT) Complement C3 129.0 90.0 - 180.0 mg/dL [facility] Blood 10/26/2022 3:50 PM CDT 10/26/2022 5:08 PM CDT Carolina Delarosa MD LAB BLOOD ORDERABLES Final Result [facility] Department [place] [address] * Anti-double stranded DNA abs (10/26/2022 3:50 PM CDT) dsDNA Ab 3.0 <=4.0 IUnits/mL [facility] Comment: Interpretive Data Negative: < or = 4 IUnits/mL Indeterminate: 5 - 9 IUnits/mL Positive: > or = 10 IUnits/mL Current interpretive data was last revised on 2016. Blood 10/26/2022 3:50 PM CDT 10/26/2022 5:08 PM CDT Carolina Delarosa MD LAB BLOOD ORDERABLES Final Result Performing Organization Address City/[facility] Co de Phone Number [facility] [place] [address] * Erythrocyte sedimentation rate (10/26/2022 3:50 PM CDT) Erythrocyte sedimentation rate 17 1 - 20 mm/hr [facility] Blood 10/26/2022 3:50 PM CDT 10/26/2022 5:08 PM CDT Carolina Delarosa MD LAB BLOOD ORDERABLES Final Result Performing Organization Address [facility] Co de Phone Number [facility] [place] [address] * C4 complement (10/26/2022 3:50 PM CDT) Pathologist [facility] Complement C4 20.0 10.0 - 40.0 mg/dL [facility] Blood 10/26/2022 3:50 PM CDT 10/26/2022 5:08 PM CDT Carolina Delarosa MD LAB BLOOD ORDERABLES Final Result Performing Organization Address [facility] Co de Phone Number [facility] [place] [address] * Urinalysis reflex to microscopic and culture Urine (10/26/2022 3:37 PM CDT) Color, ur Straw Yellow [facility] Clarity, ur Clear Clear [facility] Specific gravity, ur 1.018 1.003 - 1.030 [facility] pH, urine 6.0 [facility] Protein, ur ql Trace Negative [facility] Glucose, ur ql Negative Negative [facility] Ketones, ur Negative Negative [facility] Bilirubin, ur Negative Negative [facility] Blood, ur Negative Negative [facility] Urobilinogen, ur <2.0 <2.0 mg/dL [facility] Nitrite, ur Negative Negative [facility] Leukocyte esterase, ur Negative Negative [facility] UA reflex comment Reflex conditions for microscopic UA and culture not met. [facility] Urine 10/26/2022 3:37 PM CDT 10/26/2022 5:07 PM CDT Narrative [facility] - 10/26/2022 5:38 PM CDT ?? Urine pH is affected by diet, medications, systemic acid-base disturbances, and renal tubular function. ??pH may affect urinary stone formation. ??For example, urine pH below 6.0 may help reduce the tendency for calcium phosphate stones and pH greater than 6.0 may reduce the tendency for uric acid stone formation. Source: [facility] [employer]. Last revised 03-08-2017 Carolina Delarosa MD LAB MICROBIOLOGY - GENERAL ORDERABLES Final Result Performing Organization Address [facility] Co de Phone Number [facility] Department [place] [address] * Protein / creatinine ratio, urine, random (10/26/2022 3:37 PM CDT) Protein, ur, quant 7.4 mg/dL [facility] Comment: Interpretive Data No reference range established. Current interpretive data was last revised 2018. Creatinine Ur 100.5 mg/dL [facility] Comment: Interpretive Data No reference range established. Current interpretive data was last revised 2018. Protein/creatinin e ratio 73.6 0.0 - 180.0 mg/g CR [facility] Urine 10/26/2022 3:37 PM CDT 10/26/2022 5:07 PM CDT Carolina Delarosa MD LAB URINE ORDERABLES Final Result Performing Organization Address [facility] Co de Phone Number [facility] [place] [address] documented in this encounter Visit Diagnoses Diagnosis Other systemic lupus erythematosus with other organ involvement (HCC) documented in this encounter Care Teams Administrative Support Assistant Relationship Specialty [place] [address] [address] [facility] [address] [place] [address] PCP - General 07/04/19 [place] [address] [address] [facility] [address] [place] [address] 11/16/18 Ernie Shaw MD [address] [facility] [address] [place] [address] Child And Family Services Worker Obstetrics and Gynecology 06/10/20 documented as of this encounter
--- OUTSIDE RECORDS SUMMARY | 2024-02-24 19:58 | XMS_ITS | Encounter Summary ---
Author Organization [facility] Address [address] [place] [address] Phone Care Team Providers Care Cullet Crusher And Washer Name Role Phone Huseyin Dangelo MD Unavailable [phone] Brian Mon MD Primary Care Provider + Ernie Shaw MD Unavailable [phone] Encounter Details Date Type Department Care Team (Late st Contact Info) Description 04/30/[address] [facility] Rheumatology [address] [facility] Advanced Medicine 5th [place] [address] [place] [address] Maddi Patel MD [address] [place] [address] Social History Tobacco Use Types Packs/Day Years [...] and Family Not on file 01/01/2021 Attends Jain Services Not on file 01/01 Active Member [...] place to sleep or slept in a nursing home (including now)? No 01/01/2021 Mobile Depression Scale Answer Date Recorded Mobile Depression Scale Total 11 01/11/2021 The thought of harming myself has occurred to me . 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 I called the patient and she described having fatigue and arthralgia involving her back and knees with no joint swelling. She reported her disease has been generally well controlled over the course of last 2 years, despite discontinuation of Benlysta due to in 2020, she gave to a healthy daughter in December 2020 and continued to do well until about 2 weeks ago, She described having URI symptoms thatare gradually improving. She has been tested for COVID several times which were negative. Currently, her regimen is hydroxychloroquine 400 mg and prednisone 5 mg. Patient called on Sunday describing similar symptoms and was recommended to obtain lupus disease activity labs and stated she was not able to do them yesterday but we will complete it 1st thing in the morning. Patient reported taking increased dose of prednisone for this morning of 20 mg help with her symptoms. I advised the patient to continue on her regular regimen until her labs are completed, accordingly we will give prednisone taper or have her seen at the clinic sooner for further evaluation and benlysta re-initiation. INSPECTOR documented in this encounter Plan of Treatment Not on file documented as of this encounter Visit Diagnoses Not on filedocumented in this encounter Care Teams Cullet Crusher And Washer Relationship Specialty [place] [address] [address] [place] [address] PCP - General 07/04/19 [place] [address] [address] [place] [address] 11/16/18 Ernie Shaw MD [address] [facility] [address] [place] [address] Sign Writer Hand Obstetrics and Gynecology 06/10/20 documented as of this encounter
--- OUTSIDE RECORDS SUMMARY | 2024-02-24 19:58 | XMS_ITS | Encounter Summary ---
Author Organization [facility] [employer] [facility] Address [address] [place] [address] Phone Care Team Providers Care Aircraft Mechanic Electrical And Radio Name Role Phone Huseyin Dangelo MD Unavailable [phone] Brian Mon MD Primary Care Provider + Ernie Shaw MD Unavailable [phone] Encounter Details Date Type Department Care Team (Late st Contact Info) Description 08/16/2023 4:00 PM CDT Lab [facility] Infectious Diseases [address] [place] [address] [address] [place] [address] Social History Tobacco Use Types Packs/Day Years [...] and Family Not on file 01/01/2021 Attends Confucianist Services Not on file 01/01 Active Member [...] place to sleep or slept in a longterm (including now)? No 01/01/2021 Cla[place]on Depression Scale Answer Date Recorded Cla[place]on Depression Scale Total 11 01/11/2021 The thought of harming myself has occurred to me . Never 01/11/2021 Personal Safety Answer Date Recorded Have you ever been in or are you currently in a harmful physical or emotional relationship or is someone making you feel afraid or unsafe? Denies 06/30/2023 Comments No Sex and Gender Information Value [...] on filedocumented in this encounter Care Teams Aircraft Mechanic Electrical And Radio Relationship Specialty [place] [address] [address] [facility] [address] [place] [address] PCP - General 07/04/19 [place] [address] [address] [facility] [address] [place] [address] 11/16/18 Ernie Shaw MD [address] [place] [address] [address] [place] [address] High School Physical Education Teacher Obstetrics and Gynecology 06/10/20 documented as of this encounter
--- OUTSIDE RECORDS SUMMARY | 2024-02-24 19:58 | XMS_ITS | Encounter Summary ---
Author Organization [facility] Healthcare Address [address] [place] [address] Care Team Providers Care Tow Operator Name Role Phone Huseyin Dangelo MD Unavailable [phone] Brian Mon MD Primary Care Provider + Ernie Shaw MD Unavailable Reason for Visit * Reason Comments Vaginal Itching Encounter Details Date Type Department Care Team (Late st Contact Info) Description 06/30/2023 8:41 PM CDT - 06/30/2023 10:15 PM CDT Emergency [facility] Emergency Department [address] [place] [address] Vaginal itching (Primary Dx) Discharge Disposition: Discharge to home or self [...] and Family Not on file 01/01/2021 Attends Baptism Services Not on file 01/01 Active Member [...] to sleep or slept in a senior living (including now)? No 01/01/2021 [place] Depression Scale Answer Date Recorded [place] Depression Scale Total 11 01/11/2021 The thought [...] Sign Reading Time Taken Comments Blood Pressure 131/77 06/30/2023 8:21 PM CDT Pulse 79 06/30/2023 8:21 PM CDT Temperature 36.2 ??C (97.1 ??F) 06/30/2023 8:21 PM CD T Respiratory Rate 18 06/30/2023 8:21 PM CDT Oxygen Saturation 99% 06/30/2023 8:21 PM CDT Inhaled Oxygen Concentration - - Weight 77.1 kg (170 lb) 06/30/2023 8:21 PM CDT Height 157.5 cm (5' 2 ) 06/30/2023 8:21 PM CDT Body Mass Index 31.09 06/30/2023 8:21 PM CDT documented in this encounter Discharge Instructions * Discharge Instructions* Juana Mcclain PA - 06/30/2023 10:07 PM CDT You were seen today for evaluation of vaginal pain and itching. Your physical exam showed no significant clinical findings. Multiple swabs were sent off, you need to follow up with your primary care for this. I have also attached information for OB. Please alternate Tylenol and ibuprofen as needed to help with these pains. I have also sent you in topical lidocaine. Please apply as needed documented in this encounter Medications at Time of Discharge acyclovir (ZOVIRAX) 5 % ointment APPLY OINTMENT TO AFFECTED AREA SIX TIMES DAILY (3 HOURS APART) 3 omeprazole (PriLOSEC) 20 mg capsule Take 1 capsule (20 mg total) by mouth daily sertraline (ZOLOFT) 25 mg tablet Take 1 tablet (25 mg total) by mouth daily 2 valACYclovir (VALTREX) 500 mg tablet 2 miconazole nitrate (MONISTAT 1 COMBINATION PACK) kit Insert 1 each into the vagina once for 1 dose Use as directed. Collaborating physician Jorge Arriaga MD 1 kit 1 4 07/03/19 24 fluconazole (DIFLUCAN) 150 mg tabletIndications: Antibiotic-induced yeast infection Take 1 tablet (150 mg total) by mouth as directed Take one tab now. Repeat in 7 days if symptoms persist. 2 tablet 3 10/22/19 24 hydroxychloroquine (PLAQUENIL) 200 mg tabletIndications: Systemic Lupus Erythematosus Take 1 tablet (200 mg total) by mouth daily 90 tablet 4 09/12/19 24 lidocaine 5 % cream Apply 2 mL topically 2 (two) times a day 14 g 4 10/22/19 24 naproxen (NAPROSYN) 500 mg tablet Take 1 tablet (500 mg total) by mouth 2 (two) times a day as needed for pain Take with food. 30 tablet 3 10/22/19 24 predniSONE (DELTASONE) 5 mg tabletIndications: Raymond disease (HCC) Take 1 tablet (5 mg) by mouth daily 30 tablet 3 4 08/15/19 24 terconazole (TERAZOL 3) 80 mg vaginal suppository Insert 1 suppository (80 mg total) into the vagina daily 3 10/22/19 24 tobramycin (TOBREX) 0.3 % ophthalmic solution every 4 (four) hours 3 10/22/19 24 documented as of this encounter Ordered Prescriptions Prescription Sig Dispense Quantity Refills Last Filled Start Date End Date miconazole nitrate (MONISTAT 1 COMBINATION PACK) kit Insert 1 each into the vagina once for 1 dose Use as directed. Collaborating physician Jorge Arriaga MD 1 kit 1 07/03/2023 07/03/19 24 lidocaine 5 % cream Apply 2 mL topically 2 (two) times a day 14 g 06/30/2023 10/22/19 24 documented in this encounter Discharge Disposition Disposition Code Departure Means Destination Comment s Discharge to home or self care documented in this encounter ED Notes * Juana Mcclain PA - 06/30/2023 10:15 PM CDT HPI Chief Complaint Patient presents with Vaginal Itching 33-year-old A&O x4 female patient presents for evaluation of vaginal itching and pain. Ongoing for the past week. Has taken a Diflucan without relief. States she was concerned as her has been haspoison gabrielle Patient History: Patient Active Problem List Diagnosis Date Noted Rectal bleeding 11/16/2020 Polyhydramnios in third trimester, not applicable or unspecified fetus 10/26/2020 Nausea and vomiting, unspecified vomiting type 05/23/2022 Acute pharyngitis 03/09/2021 COVID-19 virus infection 03/05/2021 delivery 12/30/2020 Anemia during in third trimester 11/19/2020 Marginal insertion of umbilical cord affecting management of mother in second trimester 08/26/2020 Placenta previa 08/26/2020 Attention deficit hyperactivity disorder (ADHD), combined type 07/15/2020 Generalized anxiety disorder 06/15/2020 Supervision of high-risk , unspecified trimester 06/10/2020 Secondary adrenal insufficiency (CMS/HCC) (HCC) 06/03/2020 Right carpal tunnel syndrome 05/12/2020 Bilateral chronic serous otitis media 03/31/2020 Adrenal insufficiency (CMS/HCC) (HCC) 03/04/2020 Microcytic anemia 12/24/2019 Joint pain 12/24/2019 Anti-[employer]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 albuterol as needed Chronic diarrhea Chronic kidney disease lupus nephritis Depression Headache, tension-type Lupus (CMS/HCC) (HCC) PONV (postoperative nausea and vomiting) 07/13/2015 Rheumatoid arthritis (HCC) Seizures ([facility]) reaction to a medication Past Surgical History: Procedure Laterality Date APPENDECTOMY BREAST BIOPSY Right 02/23/2021 COLONOSCOPY 07/29/2019 1st DILATION AND CURETTAGE OF UTERUS 09/2017 ESOPHAGOGASTRODUODENOSCOPY 07/2019 HAND SURGERY WRIST SURGERY Right 12/09/2018 rt wrist median nerve repair, allograft nerve wrap application Family History Problem Relation Age of Onset Gout Mother Diabetes Mother Hypertension Mother Heart disease Father Stroke Father Colon cancer Other Social History Tobacco Use Smoking status: Former Current packs/day: 0.00 Types: Cigarettes Quit date: 12/28/2018 Years since quittin.5 Smokeless tobacco: Never Vaping Use Vaping status: Never Used Substance and Sexual Activity Alcohol use: Yes Comment: occasionally Drug use: Not Currently Types: Marijuana Comment: 01/09 - denies Sexual activity: Defer Partners: Male Social History Social History Narrative Not on file Review of Systems Review of Systems Genitourinary: Positive for vaginal pain. All other systems reviewed and are negative. Physical Exam ED Triage Vitals [06/30/232020] Temp Pulse Resp BP SpO2 36.2 ??C (97.1 ??F) 79 18 131/77 99 % Temp src Heart Rate Source Patient Position BP Location FiO2 (%) Tympanic -- -- -- -- Height Height Method Weight Weight Method 1.575 m (5' 2 ) Stated 77.1 kg (170 lb) -- Physical Exam Vitals and nursing note reviewed. Constitutional: General: She is not in acute distress. Appearance: Normal appearance. She is not ill-appearing, toxic-appearing or diaphoretic. HENT: Head: Normocephalic. Cardiovascular: Pulses: Normal pulses. Pulmonary: Effort: Pulmonary effort is normal. Breath sounds: Normal breath sounds. Musculoskeletal: General: Normal range of motion. Cervical back: Normal range of motion. Skin: General: Skin is warm. Capillary Refill: Capillary refill takes less than 2 seconds. Neurological: General: No focal deficit present. Mental Status: She is alert and oriented to person, place, and time. [facility] Medical Decision Making 33-year-old A&O x4 female patient presents for evaluation of vaginal pain and itching. Ongoing for the past week. Does have history of genital herpes. States she was concerned as her recently has poison gabrielle she denies vaginal bleeding, does endorse discharge. She states she took Diflucan, Monistat, other suppository. She was not sure if this discharge is related to the suppository or not. She denies abdominal cramping and pelvic pain. Physical exam was reassuring. Abdomen soft nontender all quadrants. Pelvic exam does not show any vesicular rashes. No obvious swelling. Speculum introduced without any complication. Through do appear to be white thick chunks which do appear consistent with Monistat. There is normal-appearing discharge in a normal amounts, nothing copious Differential: STI, vaginitis, cystitis Plan: UA, physical exam ED course: No clinical course showing herpes or yeast infection. Swab sent off. She understands need to follow up with primary. Return precautions given. All questions answered at this time Amount and/or Complexity of Data Reviewed Labs: ordered. Risk OTC drugs. Final diagnoses: Vaginal itching Juana Mcclain PA 07/01/23 0040 Cosigned by Germán Garza MD at 07/06/2023 9:54 PM CDT * Alpa Levi RN - 06/30/2023 8:19 PM CDT Pt presents to ED with vaginal itching has poison gabrielle pt on diflucan for yeast infection on1 st pill documented in this encounter Miscellaneous Notes * Result Encounter Note - Taiwo Rodriguez PA - 06/30/2023 10:15 PM CDT Spoke to patient on phone regarding vaginal Patti infection. Prescription for miconazole cream sent to patient's preferred pharmacy. Patient also states that she is following up with her OBGYN. documented in this encounter Plan of Treatment Not on file documented as of this encounter Procedures Procedure Name Priority Date/Time Associated Diagnosis Comments N. GONORRHOEAE/C. TRACHOMATIS AMPLIFICATION STAT 06/30/2023 10:12 PM CDT PATTI (YEAST) CULTURE STAT 06/30/2023 10:12 PM CDT VAGINITIS PANEL STAT 06/30/2023 10:12 PM CDT URINALYSIS AND REFLEX TO MICROSCOPIC AND CULTURE Routine 06/30/2023 8:37 PM CDT HCG, URINE, QUALITATIVE Timed 06/30/2023 8:37 PM CDT URINALYSIS, MICROSCOPIC ONLY Routine 06/30/2023 8:37 PM CDT URINE CULTURE Routine 06/30/2023 8:37 PM CDT documented in this encounter Results * (ABNORMAL) Patti (yeast) culture Vaginal Vaginal (06/30/2023 10:12 PM CDT) Report Amended Report - Complete: Few Patti albicans (.) Comment:Testing performed by : [facility], [address] [facility] [place] [address] Organism PATTI ALBICANS [facility]ARTIN ([place]) Vaginal (Vaginal) 06/30/2023 10:12 PM CDT 07/01/2023 12:23 AM CDT Narrative [facility]ARTIN ([place]) - 07/06/2023 7:37 AM CDT Interpretation data: This culture is NOT intended for the detection of filamentous fungi, endemic mycosis, or Cryptococcus. If detected, yeast will be reported and identified. Routine susceptibility is not performed, but if required, please contact the Microbiology Laboratory at . us [facility] MICROBIOLOGY - GENERAL ORDJose RIVERA Edited Result - Final ARPITA MARTIN ([place]) 1 [facility] Department [place] [address] * N. gonorrhoeae/C. trachomatis Amplification Vaginal (06/30/2023 10:12 PM CDT) C. trachomatis Not Detected Not Detected N. gonorrhoeae Not Detected Not Detected ARPITA MARTIN ([place]) Comment: Interpretive Data This assay detects Chlamydia trachomatis and Neisseria gonorrhoeae by nucleic acid amplification testing (NAAT). This assay has been cleared by the [place] Food and Drug administration. The performance characteristics of this test have been verified by the [facility]. The performance characteristics of this test have not been evaluated in individuals less than 14 years of age. Current Interpretive Data last revised 2023. Vaginal (None) 06/30/2023 10 :12 PM CDT 06/30/2023 10:15 PM CDT us [facility] MICROBIOLOGY - GENERAL GREGORY RIVERA Final Result ARPITA MARTIN ([place]) 1 [facility] Department [place] [address] * Vaginitis panel Vaginal (06/30/2023 10:12 PM CDT) Patti DNA probe Not Detected Not Detected Comment:Testing performed by : [facility], [address] [place] [address]., [id number] Gardnerella DNA probe Not Detected Not Detected ARPITA MARTIN ([place]) Comment:Testing performed by : [facility], [address] [place] [address]., [id number] Trichomonas DNA probe Not Detected Not Detected ARPITA MARTIN ([place]) Comment: Interpretive Data Testing performed by [facility] via [employer]irm VPIII Microbial Identification Test, a DNA probe test for use in the detection and identification of Patti species, Gardnerella vaginalis and Trichomonas vaginalis nucleic acid in vaginal fluid specimens from patients with symptoms of vaginitis/vaginosis. Negative results for these tests suggest the patient does not have candidiasis, bacterial vaginosis and/or trichomoniasis when consistent with clinical signs and symptoms. Current interpretive data was last revised on 2020. Testing performed by: [facility], [address] [place] [address]., [id number] Vaginal 06/30/2023 10:1 2 PM CDT 07/01/2023 1:33 AM CDT [facility] MICROBIOLOGY - GENERAL ORDE RABLES Final Result [facility]ITA [facility]ARTIN ([place]) 1 [facility] Department [place] [address] * hCG, urine, qualitative (06/30/2023 8:37 PM CDT) HCG, ur Negative Negative Urine 06/30/2023 8:37 PM CDT 06/30/2023 10:06 PM CDT [facility] URINE ORDERABLES Final Resu lt Performing Organization Address City/[facility]/ZIP Co de Phone Number ARPITA MARTIN ([place]) 1 [facility] Department [place] [address] * Urine culture Urine, clean voided (06/30/2023 8:37 PM CDT) Report Final Report: Less than 100,000 colonies/mL (clinically insignificant growth based on current clinical standards) Comment:Testing performed by : [facility], [address] [facility] [place] [address] Organism (CLINICALLY INSIGNIFICANT GROWTH [facility]PITA MARTIN ([place]) Urine, clean voided 06/30/2023 8:37 PM CDT 07/01/2023 12:17 AM CDT Narrative ARPITA MARTIN ([place]) - 07/02/2023 12:46 PM CDT Urine culture reflexed based upon urinalysis results. Testing performed by [facility] Microbiology Laboratory ([phone]) [facility] MICROBIOLOGY - GENERAL ORDE RABLES Final Result [facility]PITA MARTIN ([place]) 1 [facility] Department [place] [address] * (ABNORMAL) Urinalysis, microscopic only (06/30/2023 8:37 PM CDT) WBC, ur 11-20(A) 0 - 5 /HPF RBC, ur 3-5(A) 0 - 2 /HPF [facility] ([place]) Epithelial cells, squamous, ur 1-5 0 - 5 /HPF [facility] ([place]) Bacteria, ur Trace(A) [facility] ([place]) Mucous, ur Present(A) [facility] ([place]) Culture Reflex Comment Reflex to urine culture will be performed. [facility] ([place]) Urine, clean voided 06/30/2023 8:37 PM CDT 06/30/2023 8:38 PM CDT us [facility] URINE ORDERABLES Final Resu lt [facility] ([place]) 1 [facility] [place] [address] * (ABNORMAL) Urinalysis reflex to microscopic and culture Urine, clean voided (06/30/2023 8:37 PM CDT) Color, ur Yellow Yellow Clarity, ur Clear Clear [facility] ([place]) Specific gravity, ur 1.026 1.003 - 1.030 [facility] ([place]) pH, urine 6.5 [facility] ([place]) Comment: Interpretive Data ? Urine pH is affected by diet, medications, systemic acid-base disturbances, and renal tubular function. ??pH may affect urinary stone formation. ??For example, urine pH below 6.0 may help reduce the tendency for calcium phosphate stones and pH greater than 6.0 may reduce the tendency for uric acid stone formation. Source: [facility] [place] Current Interpretive Data was last revised on 2017 Protein, ur ql Trace Negative [facility] ([place]) Glucose, ur ql Negative Negative [facility] ([place]) Ketones, ur Negative Negative [facility] ([place]) Bilirubin, ur Negative Negative [facility] ([place]) Blood, ur Negative Negative [facility] ([place]) Urobilinogen, ur <2.0 <2.0 mg/dL [facility] ([place]) Nitrite, ur Negative Negative [facility] ([place]) Leukocyte esterase, ur 4+(A) Negative [facility] ([place]) UA reflex comment Reflex to microscopic UA will be performed. [facility] ([place]) Urine, clean voided 06/30/2023 8:37 PM CDT 06/30/2023 8:38 PM CDT [facility] MICROBIOLOGY - GENERAL GREGORY RIVERA Final Result [facility] ([place]) 1 [facility] Department [place] [address] documented in this encounter Visit Diagnoses Diagnosis Vaginal itching- Primary Pruritus of genital organs documented in this encounter Care Teams Tow Operator Relationship Specialty [place] [address] [place] [address] PCP - General 07/04/19 [place] [address] [address] [place] [address] 11/16/18 Ernie Shaw MD [address] [place] [address] [address] [place] [address] [facility] Obstetric[facility] Gyne[facility] 06/10/20 documented as of this encounter
--- OUTSIDE RECORDS SUMMARY | 2024-02-24 19:58 | XMS_ITS | Encounter Summary ---
Author Organization [facility] Address [address] [place] [address] Phone Care Team Providers Care Class B Driver Name Role Phone Huseyin Dangelo MD Unavailable [phone] Brian Mon MD Primary Care Provider + Ernie Shaw MD Unavailable [phone] Encounter Details Date Type Department Care Team (Latest Contact Info) Description 08/16/2023 3:30 PM CDT Office Visit [facility] Rheumatology [address] [place] [address] [address] [place] [address] Other systemic lupus erythematosus with other organ involvement (HCC) (Primary Dx) Social History Tobacco Use Types Packs/Day Years Used Date Smoking Tobacco: Former Cigarettes Q uit: 12/28/2018 Smokeless Tobacco: Never Tobacco Cessation:Counseling Given: Not Answered Alcohol Use Standard Drinks/Week Comments Yes 0 [...] and Family Not on file 01/01/2021 Attends [employer] Not on file 01/01 Active Member [...] place to sleep or slept in a half-way (including now)? No 01/01/2021 [place] Depression Scale Answer Date Recorded [place] Depression Scale Total 11 01/11/2021 The thought [...] Sign Reading Time Taken Comments Blood Pressure 121/76 08/16/2023 3:26 PM CDT Pulse 99 08/16/2023 3:26 PM CDT Temperature 36.4 ??C (97.6 ??F) 08/16/2023 3:26 PM CD T Respiratory Rate - - Oxygen Saturation 97% 08/16/2023 3:26 PM CDT Inhaled Oxygen Concentration - - Weight 79.4 kg (175 lb) 08/16/2023 3:26 PM CDT Height 157.5 cm (5' 2 ) 08/16/2023 3:26 PM CDT Body Mass Index 32.01 08/16/2023 3:26 PM CDT documented in this encounter Progress Notes * Carolina Delarosa MD - 08/16/2023 3:30 PM CDT PATIENT NAME: Carito Madison : 1990 08/16/2023 HISTORY OF PRESENT ILLNESS: ia a 33 y.o. female with SLE. The patient was diagnosed with SLE in 2017 when she flared after a 2nd trimester loss. She was previously healthy and reported no symptoms through her . She has a positive BARAK 1:1280 centromere and homogeneous positive. 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 She has borderline elevated inflammatory markers. Given her history of she has been worked up for APS and has borderline cardiolipin antibodies which were neg on repeat but other labs have been stable Symptomatic we she has polyarticular joint pain and swelling with morning stiffness. She has recurrent oral ulcers. In terms of her medications she has been chronically on steroids for the last 2 years She was started on Benlysta with which she went into remission. She continues to be on prednisone for adrenal insufficiency as well as hydroxychloroquine 1 tablet a day. In 2020 she had an accident with for which Benlysta was stopped, she had an uneventful however had some complications during delivery. she has stayed on hydroxychloroquine 200 mg a day and prednisone 7.5 mg a day Interim Last seen 10/18 . No symptoms in the interim . She is currently on hydroxychloroquine 1 tablet a dayand prednisone 5 mg daily. She has adrenal insufficiency and follows with endocrinology and they are currently managing her steroids. Eye exam Jun 19 I ALLERGIES: Allergies Allergen Reactions Macrobid [Nitrofurantoin Monohyd/M-Cryst] Rash and Blisters Rash and Blisters in her mouth. Methylprednisolone Anaphylaxis and Syncope Syncope Penicillins Hives and Rash Prescribed keflex 08/2020 Amoxicillin Rash Prescribed keflex in 08/2020 Azathioprine Hives Clindamycin Rash Escitalopram Other (See comments) and Rash Caused seizures Caused seizures Caused seizures Penicillin Hives Reglan [Metoclopramide] Dizziness Sulfamethoxazole-Trimethoprim Other (See comments) Cannot take bactrim because of lupus Venlafaxine Itching CURRENT MEDICATION: Current Outpatient Medications: hydroxychloroquine (PLAQUENIL) 200 mg tablet, Take 1 tablet (200 mg total) by mouth daily, Disp: 90tablet, Rfl: 0 omeprazole (PriLOSEC) 20 mg capsule, Take 1 capsule (20 mg total) by mouth daily, Disp: , Rfl: predniSONE (DELTASONE) 5 mg tablet, Take 1 tablet by mouth once daily, Disp: 15 tablet, Rfl: 0 sertraline (ZOLOFT) 25 mg tablet, Take 1 tablet (25 mg total) by mouth daily, Disp: , Rfl: fluconazole (DIFLUCAN) 150 mg tablet, Take 1 tablet (150 mg total) by mouth as directed Take one tab now. Repeat in 7 days if symptoms persist. (Patient not taking: Reported on 04/21/2022), Disp: 2 tablet, Rfl: 0 lidocaine 5 % cream, Apply 2 mL topically 2 (two) times a day (Patient not taking: Reported on 08/16/2023), Disp: 14 g, Rfl: 0 naproxen (NAPROSYN) 500 mg tablet, Take 1 tablet (500 mg total) by mouth 2 (two) times a day as needed for pain Take with food. (Patient not taking: Reported on 10/26/2022), Disp: 30 tablet, Rfl: 0 terconazole (TERAZOL 3) 80 mg vaginal suppository, Insert 1 suppository (80 mg total) into the vagina daily (Patient not taking: Reported on 10/26/2022), Disp: , Rfl: tobramycin (TOBREX) 0.3 % ophthalmic solution, every 4 (four) hours (Patient not taking: Reported on 10/26/2022), Disp: , Rfl: valACYclovir (VALTREX) 500 mg tablet, , Disp: , Rfl: PHYSICAL EXAM: Vitals BP 121/76 Pulse 99 Temp 36.4 ??C (97.6 ??F) (Temporal) Ht 157.5 cm (5' 2 ) Wt 79.4 kg (175 lb) SpO2 97% BMI 32.01 kg/m?? Physical Exam General examination is unremarkable There is no oral ulcers on lymphadenopathy today Skin is without any evidence of rash No tender or swollen joints today RS is clear to auscultation CVS S1-S2 is regular without a murmur or gallop No peripheral edema LABORATORY DATA: Lab Results Component Value Date WBC 8.3 10/26/2022 HGB 10.3 (L) 10/26/2022 HCT 32.8 (L) 10/26/2022 MCV 75.8 (L) 10/26/2022 LABPLAT 286 05/23/2022 Lab Results Component Value Date AST 13 10/26/2022 ALT 9 10/26/2022 CREATININE 0.62 10/26/2022 Lab Results Component Value Date SEDRATE 17 10/26/2022 Lab Results Component Value Date CRP 4.0 10/26/2022 ASSESSMENT AND PLAN: SLE In conclusion this is a female with a diagnosis of lupus. She seems to be clinically in remission. We will do labs today. I have advised her to get an eye exam annually She will continue with hydroxychloroquine 200 mg (had self tapered in 2020 )and her prednisone is now managed by endocrinology I am happy to see that she is doing well despite being on very little medication as she previously had very active disease. Adv she discussed pred taper with endocrine DISPOSITION: The patient will return follow up in 6 months Carolina Delarosa MD documented in this encounter Miscellaneous Notes * Addendum Note - Chava De Paz, CLT - 08/16/2023 3:30 PM CDTAddended by: CHAVA DE PAZ on: 08/16/2023 03:58 PM Modules accepted: Orders documented in this encounter Plan of Treatment Not on file documented as of this encounter Results * (ABNORMAL) CBC with auto differential (08/16/2023 4:19 PM CDT) WBC 9.1 3.8 - 9.9 K/cumm Hgb 9.3(L) 11.9 - 15.5 g/dL [facility] Hct 32.7(L) 35.6 - 45.5 % [facility] Plt 325 150 - 400 K/cumm [facility] MPV 10.0 9.1 - 12.3 fL [facility] RBC 4.45 3.90 - 5.20 M/cumm [facility] MCV 73.5(L) 81.3 - 96.4 fL [facility] MCH 20.9(L) 27.1 - 33.3 pg [facility] MCHC 28.4(L) 32.3 - 35.7 g/dL [facility] RDW CV 17.9(H) 11.1 - 14.9 % [facility] RDW SD 47.1 35.7 - 48.1 fL [facility] NRBC abs 0.00 0.00 - 0.01 K/cumm [facility] Blood 08/16/2023 4:19 PM CDT 08/16/2023 7:41 PM CDT us Carolina Delarosa MD LAB BLOOD ORDERABLES Final Result [facility] [address] Department [place] [address] * Comprehensive metabolic panel (08/16/2023 4:19 PM CDT) Pathologist [facility] Sodium 139 135 - 145 mmol/L Potassium, pl 4.1 3.3 - 4.9 mmol/L [facility] Chloride 104 97 - 110 mmol/L [facility] CO2 23 22 - 32 mmol/L [facility] Anion gap 12 2 - 15 mmol/L [facility] BUN 18 6 - 25 mg/dL [facility] Creatinine 0.72 0.60 - 1.10 mg/dL [facility] Glucose 132 70 - 199 mg/dL [facility] Comment: Interpretive Data Fasting glucose >/= 126 mg/dl is diagnostic for diabetes. ?? Fasting is defined as no caloric intake for at least 8 hours. Fasting glucose between 100 mg/dl to 125 mg/dl is diagnostic of prediabetes. In a patient with classic symptoms of hyperglycemia or hyperglycemic crisis, a random glucose >/= 200 mg/dl is diagnostic for diabetes. In the absence of unequivocal hyperglycemia, results should be confirmed by repeat testing. The classification and Diagnosis of Diabetes Diabetes Care 202; 46: S19-S40. Current interpretive data was last revised 2022. Calcium 9.6 8.5 - 10.3 mg/dL [facility] Bilirubin, total 0.2 0.1 - 1.2 mg/dL [facility] Protein, pl 7.3 6.5 - 8.5 g/dL [facility] Albumin 4.6 3.5 - 5.0 g/dL [facility] Alk phos 49 40 - 130 Units/L [facility] ALT 15 7 - 45 Units/L [facility] AST 18 10 - 45 Units/L [facility] Blood 08/16/2023 4:19 PM CDT 08/16/2023 7:41 PM CDT us Carolina Delarosa MD LAB BLOOD ORDERABLES Final Result [facility] [address] Department [place] [address] * C3 complement (08/16/2023 4:19 PM CDT) Complement C3 137 90 - 180 mg/dL Blood 08/16/2023 4:19 PM CDT 08/16/2023 7:41 PM CDT us Carolina Delarosa MD LAB BLOOD ORDERABLES Final Result [facility] [address] [place] [address] * CRP (acute phase) (08/16/2023 4:19 PM CDT) Pathologist [facility] CRP 4.4 <=10.0 mg/L Blood 08/16/2023 4:19 PM CDT 08/16/2023 7:41 PM CDT Carolina Delarosa MD LAB BLOOD ORDERABLES Final Result Performing Organization Address [facility] Co de Phone Number [facility] [address] [address] [facility] [place] [address] * Anti-double stranded DNA abs (08/16/2023 4:19 PM CDT) Pathologist [facility] dsDNA Ab 3.0 <=4.0 IUnits/mL Comment: Interpretive Data Negative: < or = 4 IUnits/mL Indeterminate: 5 - 9 IUnits/mL Positive: > or = 10 IUnits/mL Current interpretive data was last revised on 2016. Testing performed by: [facility], [address] [place]., [address] Blood 08/16/2023 4:19 PM CDT 08/17/2023 10:16 AM CDT Carolina Delarosa MD LAB BLOOD ORDERABLES Final Result Performing Organization Address City/[facility]/ZIP Co de Phone Number [facility] [address] [address] [facility] [place] [address] * Erythrocyte sedimentation rate (08/16/2023 4:19 PM CDT) Pathologist [facility] Erythrocyte sedimentation rate 10 1 - 20 mm/hr Blood 08/16/2023 4:19 PM CDT 08/16/2023 7:41 PM CDT Carolina Delarosa MD LAB BLOOD ORDERABLES Final Result [facility] [address] Department [place] [address] * (ABNORMAL) Urinalysis reflex to microscopic and culture Urine (08/16/2023 4:19 PM CDT) Color, ur Yellow Yellow Clarity, ur Cloudy(A) Clear [facility] Specific gravity, ur 1.034(H) 1.003 - 1.030 [facility] pH, urine 5.0 [facility] Comment: Interpretive Data ? Urine pH is affected by diet, medications, systemic acid-base disturbances, and renal tubular function. ??pH may affect urinary stone formation. ??For example, urine pH below 6.0 may help reduce the tendency for calcium phosphate stones and pH greater than 6.0 may reduce the tendency for uric acid stone formation. Source: [facility] [employer] Current Interpretive Data was last revised on 2017 Protein, ur ql 1+(A) Negative [facility] Glucose, ur ql Negative Negative [facility] Ketones, ur Negative Negative [facility] Bilirubin, ur Negative Negative [facility] Blood, ur Negative Negative [facility] Urobilinogen, ur <2.0 <2.0 mg/dL [facility] Nitrite, ur Negative Negative [facility] Leukocyte esterase, ur Negative Negative [facility] UA reflex comment Reflex to microscopic UA will be performed. [facility] Urine 08/16/2023 4:19 PM CDT 08/16/2023 7:41 PM CDT Carolina Delarosa MD LAB MICROBIOLOGY - GENERAL ORDERABLES Final Result Performing Organization Address City/State/[facility] Co de Phone Number [facility] [address] [address] Department [place] [address] * C4 complement (08/16/2023 4:19 PM CDT) Complement C4 19 10 - 40 mg/dL Blood 08/16/2023 4:19 PM CDT 08/16/2023 7:41 PM CDT Carolina Delarosa MD LAB BLOOD ORDERABLES Final Result Performing Organization Address City/State/[facility] de Phone Number [facility] [address] Department [place] [address] * Protein / creatinine ratio, urine, random (08/16/2023 4:19 PM CDT) Protein, ur, quant 15.9 mg/dL Comment: Interpretive Data No reference range established. Current interpretive data was last revised 2018. Creatinine Ur 313.5 mg/dL [facility] Comment: Interpretive Data No reference range established. Current interpretive data was last revised 2018. Protein/creatinin e ratio 50.7 0.0 - 180.0 mg/g CR [facility] Urine 08/16/2023 4:19 PM CDT 08/16/2023 7:41 PM CDT Carolina Delarosa MD LAB URINE ORDERABLES Final Result Performing Organization Address [facility] de Phone Number [facility] [address] [address] Department [place] [address] documented in this encounter Visit Diagnoses Diagnosis Other systemic lupus erythematosus with other organ involvement (HCC)- Primary documented in this encounter Care Teams Class B Driver Relationship Specialty [place] [address] [address] PCP - General 07/04/19 [place] [address] [address] [address] 11/16/18 Ernie Shaw MD [address] [place] [address] [address] [place] [address] [employer] Obstetrics and Gynecology 06/10/20 documented as of this encounter
--- OUTSIDE RECORDS SUMMARY | 2024-02-24 19:58 | XMS_ITS | Encounter Summary ---
Author Organization [facility] Address [address] [place] [address] Phone Care Team Providers Care It Help Desk Manager Name Role Phone Huseyin Dangelo MD Unavailable [phone] Brian Mon MD Primary Care Provider + Ernie Shaw MD Unavailable [phone] Encounter Details Date Type Department Care Team (Latest Contact Info) Description 10/22/2023 10:20 AM CDT Office Visit [facility] Endocrinology Metabolism and Lipid [address], [address] [place] [address] Darius Fernandez MD [address] [address] Adrenal insufficiency (HCC) (Primary Dx); Elevated blood sugar; Gume disease (HCC) Social History Tobacco Use Types Packs/Day [...] and Family Not on file 01/01/2021 Attends Worship Services Not on file 01/01 Active Member [...] place to sleep or slept in a correction (including now)? No 01/01/2021 [place] Depression Scale Answer Date Recorded [place] Depression Scale Total 11 01/11/2021 The thought [...] Reading Time Taken Comments Blood Pressure 121/76 10/22/2023 10:34 AM CDT Pulse 72 10/22/2023 10:34 AM CDT Temperature - - Respiratory Rate - - Oxygen Saturation - - Inhaled Oxygen Concentration - - Weight 78.9 kg (174 lb) 10/22/2023 10:34 AM CDT Height 157.5 cm (5' 2 ) 10/22/2023 10:34 AM CDT Body Mass Index 31.83 10/22/2023 10:34 AM CDT documented in this encounter Ordered Prescriptions Prescription Sig Dispense Quantity Refills Last Filled Start Date End Date predniSONE (DELTASONE) 5 mg tabletIndications: Gume disease (HCC) Take 1 tablet (5 mg) by mouth daily 90 tablet 3 10/22/2023 10/21/2024 documented in this encounter Progress Notes * Darius Fernandez MD - 10/22/2023 10:20 AM CDT Endocrine Patient Visit Referring provider: Griffin Burr MD Chief Complaint: Fatigue HPI: Initial visit on 10/24/2019 Patient is a 33 y.o. Lady with history of lupus which has required rn long term care steriod use for 2.5 years. Has required high dose in the past up to 60 mg daily. 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 She is currently on 5 mg of prednisone. Review of Systems Review of systems per HPI and otherwise all other systems are negative. OBJECTIVES Physical exam: BP 121/76 (BP Location: Right arm, Patient Position: Sitting) Pulse 72 Ht 157.5 cm (5' 2 ) Wt78.9 kg (174 lb) BMI 31.83 kg/m?? Past Medical History: Diagnosis Date Anemia Anxiety Anxiety disorder currently on no meds Asthma never hospitalized/intubated. albuterol as needed Chronic diarrhea Chronic kidney disease lupus nephritis Depression Headache, tension-type Lupus (CMS/HCC) (HCC) PONV (postoperative nausea and vomiting) 07/13/2015 Rheumatoid arthritis (HCC) Seizures (HCC) reaction to a medication Past Surgical History: Procedure Laterality Date APPENDECTOMY BREAST BIOPSY Right 02/23/2021 COLONOSCOPY 07/29/2019 1st DILATION AND CURETTAGE OF UTERUS 09/2017 ESOPHAGOGASTRODUODENOSCOPY 07/2019 HAND SURGERY WRIST SURGERY Right 12/09/2018 rt wrist median nerve repair, allograft nerve wrap application (Not in a hospital admission) Allergies Allergen Reactions Macrobid [Nitrofurantoin Monohyd/M-Cryst] Rash [...] take bactrim because of lupus Venlafaxine Itching Social History Tobacco Use Smoking status: Former Smoker Quit date: 12/28/2018 Years since quittin.9 Smokeless tobacco: Never Used Substance Use Topics Alcohol use: Yes Comment: occasionally Family History Problem Relation Age of Onset Gout Mother Diabetes Mother Hypertension Mother Heart disease Father Stroke Father Colon cancer Other Labs: Cosyntropin stimulation test: Results for UMER MADISON ( ) as of 06/22/2020 17:50 Ref. Range 03/22/2020 09:03 03/22/2020 10:03 Cortisol, base Latest Ref Range: 4.8 - 19.5 mcg/dl 2.2 (L) Cortisol, 60 min Latest Ref Range: 4.8 - 19.5 mcg/dl 5.7 Cortisol, 30 min Latest Ref Range: 4.8 - 19.5 mcg/dl 5.5 ACTH Latest Units: pg/mL 11 IMAGING: EXAMINATION: Magnetic resonance imaging (MRI) of the brain and brainstem without and with contrast HISTORY: Seizures. TECHNIQUE: Multiplanar multi-weighted MRI of the brain and brainstem was performed without and with intravenous contrast using the seizure protocol. This included detailed imaging of the hippocampi and temporal lobes. Contrast information: 15 mL Dotarem COMPARISON: None available. Head CT dated 06/25/2019 was reviewed. FINDINGS: There is no evidence of heterotopia, vascular malformation, tumor, or infarct. The hippocampi are symmetric in size and signal. The scalp and calvarium are normal. The superior sagittal sinus demonstrates normal venous flow. The corpus callosum is normal in shape and signal intensity. The posterior fossa is unremarkable. The pituitary and sella are normal. The brainstem and craniocervical junction are unremarkable. The susceptibility weighted sequences reveal no evidence of acute or chronic hemorrhage. The ventricles are normal in size and position without evidence of hydrocephalus. There are no areas of abnormal contrast enhancement. The paranasal sinuses are normal. The visualized portions of the mastoids are unremarkable. The orbits appear normal. Normal flow voids are demonstrated in the carotid arteries and basilar artery. IMPRESSION: No findings to explain the patient's seizures. Assessment/Plan: Patient is a 31 y.o. Lady with history of lupus which has required senior living steriod use for 2.5 years. Has required high Dose in the past up to 60 mg daily. 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 Current prednisone dose is 5 mg daily. Plan: Will check 8 AM cortisol, DHEA-s and ACTH level. Will check A1c. Darius Fernandez MD [employer] Operatorsupervisor industrial arts education Division of Endocrinology, Metabolism and Lipid [facility] documented in this encounter Plan of Treatment Scheduled Orders Name Type Priority Associated Diagnoses Orde r Schedule Cortisol Lab Routine Adrenal insufficiency (HCC) Expected: 10/25/2023, Expires: 10/21/2024 ACTH Lab Routine Adrenal insufficiency (HCC) Expected: 10/25/2023, Expires: 10/21/2024 DHEA-sulfate Lab Routine Adrenal insufficiency (HCC) Expected: 10/25/2023, Expires: 10/21/2024 Hemoglobin A1c Lab Routine Elevated blood sugar Expected: 10/25/2023, Expires: 10/21/2024 documented as of this encounter Visit Diagnoses Diagnosis Adrenal insufficiency (HCC)- Primary Glucocorticoid deficiency Elevated blood sugar Other abnormal glucose [place] disease (HCC) Glucocorticoid deficiency documented in this encounter Discontinued Medications Medication Sig Discontinue Reason Start Date End Da te fluconazole (DIFLUCAN) 150 mg tabletIndications:Anti biotic-induced yeast infection Take 1 tablet (150 mg total) by mouth as directed Take one tab now. Repeat in 7 days if symptoms persist. Therapy completed 03/23/2022 10/22/2023 naproxen (NAPROSYN) 500 mg tablet Take 1 tablet (500 mg total) by mouth 2 (two) times a day as needed for pain Take with food. 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 valACYclovir (VALTREX) 1 gram tablet Take 1 tablet (1,000 mg total) by mouth 2 (two) times a day 08/28/2023 doxycycline hyclate 100 mg capsule Take 1 tablet/capsule (100 mg total) by mouth 2 (two) times a day 10/17/2023 cyclobenzaprine (FLEXERIL) 5 mg tablet TAKE 1 TABLET BY MOUTH THREE TIMES A DAY NEEDED FOR MUSCLE SPASM 08/04/2023 acyclovir (ZOVIRAX) 5 % ointment APPLY OINTMENT TO AFFECTED AREA SIX TIMES DAILY (3 HOURS APART) 08/24/2022 added in this encounter Care Teams It Help Desk Manager Relationship Specialty [place] [address] [address] [place] [address] PCP - General 07/04/19 [place] [address] [address] [place] [address] [place] [address] 11/16/18 Ernie Shaw MD [address] [facility] [address] [place] [address] Rosin Barrel Filler Obstetrics and Gynecology 06/10/20 documented as of this encounter
--- OUTSIDE RECORDS SUMMARY | 2024-02-24 19:58 | XMS_ITS | Encounter Summary ---
Author Organization [facility] Address [address] [place] [address] Care Team Providers Care Network/Telecom Engineer Name Role Phone Huseyin Dangelo MD Unavailable [phone] Brian Mon MD Primary Care Provider + Ernie Shaw MD Unavailable Encounter Details Date Type Department Care Team (Late st Contact Info) Description 05/01/2022 6:30 AM TRANSLATIONAL SPECIALIST Lab [address] [id number] Systemic lupus erythematosus, unspecified SLE type, unspecified [...] and Family Not on file 01/01/2021 Attends [employer] Not on file 01/01 Active Member [...] place to sleep or slept in a alf (including now)? No 01/01/2021 Ripley Depression Scale Answer Date Recorded Ripley Depression Scale Total 11 01/11/2021 The thought [...] Name Priority Date/Time Associated Diagnosis Comments URINALYSIS AND REFLEX TO MICROSCOPIC AND CULTURE Routine 05/01/2022 6:45 AM TRANSLATIONAL SPECIALIST Systemic lupus erythematosus, unspecified SLE type, unspecified organ involvement status (HCC) PROTEIN / CREATININE RATIO, URINE, RANDOM Routine 05/01/2022 6:45 AM TRANSLATIONAL SPECIALIST Systemic lupus erythematosus, unspecified SLE type, unspecified organ involvement status (HCC) URINALYSIS, MICROSCOPIC ONLY Routine 05/01/2022 6:45 AM TRANSLATIONAL SPECIALIST Systemic lupus erythematosus, unspecified SLE type, unspecified organ involvement status (HCC) EGFR Routine 05/01/2022 6:36 AM TRANSLATIONAL SPECIALIST Systemic lupus erythematosus, unspecified SLE type, unspecified organ involvement status (HCC) DIFFERENTIAL AUTO Routine 05/01/2022 6:3 6 AM TRANSLATIONAL SPECIALIST Systemic lupus erythematosus, unspecified SLE type, unspecified organ involvement status (HCC) C4 COMPLEMENT Routine 05/01/2022 6:36 AM TRANSLATIONAL SPECIALIST Systemic lupus erythematosus, unspecified SLE type, unspecified organ involvement status (HCC) ANTI-DOUBLE STRANDED DNA ANTIBODIES Routine 05/01/2022 6:36 AM TRANSLATIONAL SPECIALIST CBC WITH AUTO DIFFERENTIAL Routine 05/01/2022 6:36 AM TRANSLATIONAL SPECIALIST Systemic lupus erythematosus, unspecified SLE type, unspecified organ involvement status (HCC) ERYTHROCYTE SEDIMENTATION RATE Routine 05/01/2022 6:36 AM TRANSLATIONAL SPECIALIST Systemic lupus erythematosus, unspecified SLE type, unspecified organ involvement status (HCC) C3 COMPLEMENT Routine 05/01/2022 6:36 AM TRANSLATIONAL SPECIALIST Systemic lupus erythematosus, unspecified SLE type, unspecified organ involvement status (HCC) CRP (ACUTE PHASE) Routine 05/01/2022 6:3 6 AM TRANSLATIONAL SPECIALIST Systemic lupus erythematosus, unspecified SLE type, unspecified organ involvement status (HCC) COMPREHENSIVE METABOLIC PANEL Routine 05/01/2022 6:36 AM TRANSLATIONAL SPECIALIST Systemic lupus erythematosus, unspecified SLE type, unspecified organ involvement status (HCC) documented in this encounter Results * (ABNORMAL) Urinalysis, microscopic only (05/01/2022 6:45 AM TRANSLATIONAL SPECIALIST) WBC, ur 0-5 0 - 5 /HPF [facility] ([place]) RBC, ur 11-20(A) 0 - 2 /HPF [facility] ([place]) Epithelial cells, squamous, ur 6-10(A) 0 - 5 /HPF [facility] ([place]) Mucous, ur Present(A) [facility] ([place]) Culture Reflex Comment Reflex conditions for urine culture (WBC >10) not met. [facility] ([place]) Urine 05/01/2022 6:45 AM TRANSLATIONAL SPECIALIST 05/01/2022 8:15 AM TRANSLATIONAL SPECIALIST us Carolina Delarosa MD LAB URINE ORDERABLES Final Result [facility] ([place]) 1 [facility] [place] [address] * (ABNORMAL) Urinalysis reflex to microscopic and culture Urine (05/01/2022 6:45 AM TRANSLATIONAL SPECIALIST) Color, ur Yellow Yellow [facility] ([place]) Clarity, ur Turbid(A) Clear [facility] ([place]) Specific gravity, ur 1.033(H) 1.003 - 1.030 [facility] ([place]) pH, urine 6.0 [facility] ([place]) Protein, ur ql 1+(A) Negative [facility] ([place]) Glucose, ur ql Negative Negative [facility] ([place]) Ketones, ur Negative Negative [facility] ([place]) Bilirubin, ur Negative Negative [facility] ([place]) Blood, ur Negative Negative [facility] ([place]) Urobilinogen, ur <2.0 <2.0 mg/dL [facility] ([place]) Nitrite, ur Negative Negative [facility] ([place]) Leukocyte esterase, ur 4+(A) Negative [facility] ([place]) UA reflex comment Reflex to microscopic UA will be performed. [facility] ([place]) Urine 05/01/2022 6:45 AM TRANSLATIONAL SPECIALIST 05/01/2022 8:15 AM TRANSLATIONAL SPECIALIST Narrative [facility]ARTIN ([place]) - 05/01/2022 8:22 AM TRANSLATIONAL SPECIALIST ?? Urine pH is affected by diet, medications, systemic acid-base disturbances, and renal tubular function. ??pH may affect urinary stone formation. ??For example, urine pH below 6.0 may help reduce the tendency for calcium phosphate stones and pH greater than 6.0 may reduce the tendency for uric acid stone formation. Source: [facility] [place]. Last revised 03-08-2017 Carolina Delarosa MD LAB MICROBIOLOGY - GENERAL ORDERABLES Final Result Performing Organization Address [facility] de Phone Number [facility]ITA MARTIN ([place]) [address] [facility] [place] [address] * Protein / creatinine ratio, urine, random (05/01/2022 6:45 AM TRANSLATIONAL SPECIALIST) Protein, ur, quant 27.0 mg/dL [facility] MARTIN ([place]) Comment: Interpretive Data No reference range established. Current interpretive data was last revised 2018. Creatinine Ur 352.9 mg/dL [facility]ART[facility] ([place]) Comment: Interpretive Data No reference range established. Current interpretive data was last revised 2018. Protein/creatinin e ratio 76.5 0.0 - 180.0 mg/g CR [facility] ([place]) Urine 05/01/2022 6:45 AM TRANSLATIONAL SPECIALIST 05/01/2022 8:15 AM TRANSLATIONAL SPECIALIST Carolina Delarosa MD LAB URINE ORDERABLES Final Result Performing Organization Address [facility] Co de Phone Number ARPITA MARTIN ([place]) 1 [facility] [place] [address] * Anti-double stranded DNA antibodies (05/01/2022 6:36 AM TRANSLATIONAL SPECIALIST) Anti-double stranded DNA, IgG Negative Negative [facility]ITA MARTIN ([place]) Comment:Testing performed by : [facility], [address] [place] [address], [place]., [address] Blood 05/01/2022 6:36 AM TRANSLATIONAL SPECIALIST 05/03/2022 7:18 AM TRANSLATIONAL SPECIALIST us Carolina Delarosa MD LAB BLOOD ORDERABLES Final Result [facility] MARTIN ([place]) 1 [facility] Department [place] [address] * eGFR (05/01/2022 6:36 AM TRANSLATIONAL SPECIALIST) eGFR 122 mL/min/1. 73 m2 [facility] MARTIN ([place]) Comment: Interpretive Data Reference Interval Normal ?>/= 90 mL/min/1.73m2 Mildly decreased* ? 60 - 89 mL/min/1.73m2 Mildly to moderately decreased ?45 - 59 mL/min/1.73m2 Moderately to severely decreased ??30 - 44 mL/min/1.73m2 Severely decreased ?15 - 29 mL/min/1.73m2 Kidney Failure ?< 15 ??mL/min/1.73m2 *Relative to young adult level Estimated glomerular filtration rate is determined by the 2020 CKD-EPI equation recommended by the National Kidney Foundation (A Unifying Approach to GFR Estimation: Recommendations of the NKF-ASK Task Force on Reassessing the Inclusion of Race in Diagnosing Kidney Disease, JASN 2020). The CKD-EPI equation should not be used for patients with unstable renal function and has not been validated in children and those over 70. Current interpretive data was last reviewed 2020. Blood 05/01/2022 6:36 AM TRANSLATIONAL SPECIALIST 05/01/2022 7:59 AM TRANSLATIONAL SPECIALIST us Carolina Delarosa MD LAB BLOOD ORDERABLES Final Result [facility]ART[facility] ([place]) 1 [facility] [place] [address] * (ABNORMAL) Differential, auto (05/01/2022 6:36 AM TRANSLATIONAL SPECIALIST) Neutrophil abs 7.8(H) 1.7 - 6.5 K/cumm [facility] ([place]) Imm gran abs 0.0 0.0 - 0.1 K/cumm [facility] ([place]) Lymphocyte abs 3.1 0.8 - 3.3 K/cumm [facility] ([place]) Monocyte abs 0.9(H) 0.2 - 0.8 K/cumm [facility] ([place]) Eosinophil abs 0.1 0.0 - 0.5 K/cumm [facility] ([place]) Basophil abs 0.1 0.0 - 0.1 K/cumm [facility] ([place]) Neutrophil pct 65.4 % [facility] ([place]) Comment: Interpretive Data Percent cell count reference ranges are not reported, since discordance with absolute values may lead to misinterpretation of CBC data. Current Interpretive Data was last revised on 2017. Imm gran pct 0.3 % [facility] ([place]) Comment: Interpretive Data Percent cell count reference ranges are not reported, since discordance with absolute values may lead to misinterpretation of CBC data. Current Interpretive Data was last revised on 2017. Lymphocyte pct 25.7 % [facility] ([place]) Comment: Interpretive Data Percent cell count reference ranges are not reported, since discordance with absolute values may lead to misinterpretation of CBC data. Current Interpretive Data was last revised on 2017. Monocyte pct 7.1 % [facility] ([place]) Comment: Interpretive Data Percent cell count reference ranges are not reported, since discordance with absolute values may lead to misinterpretation of CBC data. Current Interpretive Data was last revised on 2017. Eosinophil pct 1.1 % [facility] ([place]) Comment: Interpretive Data Percent cell count reference ranges are not reported, since discordance with absolute values may lead to misinterpretation of CBC data. Current Interpretive Data was last revised on 2017. Basophil pct 0.4 % [facility] ([place]) Comment: Interpretive Data Percent cell count reference ranges are not reported, since discordance with absolute values may lead to misinterpretation of CBC data. Current Interpretive Data was last revised on 2017. Blood 05/01/2022 6:36 AM TRANSLATIONAL SPECIALIST 05/01/2022 7:59 AM TRANSLATIONAL SPECIALIST Carolina Delarosa MD LAB BLOOD ORDERABLES Final Result [facility] ([place]) 1 [facility] [place] [address] * (ABNORMAL) CBC with auto differential (05/01/2022 6:36 AM TRANSLATIONAL SPECIALIST) WBC 11.9(H) 3.8 - 9.9 K/cumm [facility] ([place]) Hgb 9.4(L) 11.9 - 15.5 g/dL [facility] ([place]) Hct 31.3(L) 35.6 - 45.5 % [facility] ([place]) Plt 354 150 - 400 K/cumm [facility] ([place]) MPV 10.2 9.1 - 12.3 fL [facility] ([place]) RBC 4.16 3.90 - 5.20 M/cumm [facility] ([place]) MCV 75.2(L) 81.3 - 96.4 fL [facility] ([place]) MCH 22.6(L) 27.1 - 33.3 pg [facility] ([place]) MCHC 30.0(L) 32.3 - 35.7 g/dL [facility] ([place]) RDW CV 17.2(H) 11.1 - 14.9 % [facility] ([place]) RDW SD 46.4 35.7 - 48.1 fL [facility] ([place]) NRBC abs 0.00 0.00 - 0.01 K/cumm [facility] ([place]) Blood 05/01/2022 6:36 AM TRANSLATIONAL SPECIALIST 05/01/2022 7:59 AM TRANSLATIONAL SPECIALIST us Carolina Delarosa MD LAB BLOOD ORDERABLES Final Result [facility] MARTIN ([place]) 1 [facility] Department of Laboratories [place], [place] [id number] * (ABNORMAL) Comprehensive metabolic panel (05/01/2022 6:36 AM TRANSLATIONAL SPECIALIST) Sodium 140 135 - 145 mmol/L [facility] ([place]) Potassium, pl 3.5 3.3 - 4.9 mmol/L [facility] ([place]) Chloride 104 97 - 110 mmol/L [facility] ([place]) CO2 27 22 - 32 mmol/L [facility] ([place]) Anion gap 10 2 - 15 mmol/L [facility] ([place]) BUN 13 8 - 25 mg/dL [facility] ([place]) Creatinine 0.66 0.60 - 1.10 mg/dL [facility] ([place]) Glucose 80 70 - 199 mg/dL [facility] ([place]) Comment: Interpretive Data Fasting glucose >/= 126 [...] classification and Diagnosis of Diabetes Diabetes Care 2021; 46: S19-S40. Current interpretive data was last revised 2022. Calcium 9.6 8.5 - 10.3 mg/dL [facility] ([place]) Bilirubin, total 0.3 0.1 - 1.2 mg/dL [facility] ([place]) Protein, pl 7.1 6.5 - 8.5 g/dL [facility] ([place]) Albumin 4.1 3.5 - 5.0 g/dL [facility] ([place]) Alk phos 44 40 - 130 Units/L [facility] ([place]) ALT 8 7 - 45 Units/L [facility] ([place]) AST 9(L) 10 - 45 Units/L [facility] ([place]) Blood 05/01/2022 6:36 AM TRANSLATIONAL SPECIALIST 05/01/2022 7:59 AM TRANSLATIONAL SPECIALIST Carolina Delarosa MD LAB BLOOD ORDERABLES Final Result Performing Organization Address [facility]/ZIP Co de Phone Number [facility] ([place]) [address] [place] [address] * Erythrocyte sedimentation rate (05/01/2022 6:36 AM TRANSLATIONAL SPECIALIST) Erythrocyte sedimentation rate 19 1 - 20 mm/hr [facility] MARTIN ([place]) Blood 05/01/2022 6:36 AM TRANSLATIONAL SPECIALIST 05/01/2022 7:59 AM TRANSLATIONAL SPECIALIST Carolina Delarosa MD LAB BLOOD ORDERABLES Final Result Performing Organization Address [facility] Co de Phone Number ARPITA MARTIN ([place]) [address] [place] [address] * CRP (acute phase) (05/01/2022 6:36 AM TRANSLATIONAL SPECIALIST) CRP 5.5 <=10.0 mg/L [facility] ([place]) Blood 05/01/2022 6:36 AM TRANSLATIONAL SPECIALIST 05/01/2022 7:59 AM TRANSLATIONAL SPECIALIST Carolina Delarosa MD LAB BLOOD ORDERABLES Final Result Performing Organization Address [facility] Co de Phone Number [facility]ITA [facility] ([place]) [address] [place] [address] * C3 complement (05/01/2022 6:36 AM TRANSLATIONAL SPECIALIST) Complement C3 133 90 - 180 mg/dL [facility]ITA MARTIN ([place]) Comment:Testing performed by : [facility], [address] [place] [address], [place]., [address] Blood 05/01/2022 6:36 AM TRANSLATIONAL SPECIALIST 05/01/2022 9:32 AM TRANSLATIONAL SPECIALIST us Carolina Delarosa MD LAB BLOOD ORDERABLES Final Result ARPITA MARTIN ([place]) 1 [facility] [place] [address] * C4 complement (05/01/2022 6:36 AM TRANSLATIONAL SPECIALIST) Complement C4 18 10 - 40 mg/dL ARPITA MARTIN ([place]) Comment:Testing performed by : [facility], [address] [place] [address], [address] Blood 05/01/2022 6:36 AM TRANSLATIONAL SPECIALIST 05/01/2022 9:32 AM TRANSLATIONAL SPECIALIST Carolina Delarosa MD LAB BLOOD ORDERABLES Final Result Performing Organization Address City/[facility]/ZIP Co de Phone Number ARPITA MARTIN ([place]) [address] [place] [address] documented in this encounter Visit Diagnoses Diagnosis Systemic lupus erythematosus, unspecified SLE type, unspecified organ involvement status (HCC) documented in this encounter Care Teams Network/Telecom Engineer Relationship Specialty [place] [address] [address] [place] [address] PCP - General 07/04/19 [place] [address] [address] [place] [address] 11/16/18 Ernie Shaw MD [address] [facility] [address] [place] [address] Drophammer Operator Obstetrics and Gynecology 06/10/20 documented as of this encounter
--- OUTSIDE RECORDS SUMMARY | 2024-02-24 19:58 | XMS_ITS | Encounter Summary ---
Author Organization [facility] Address [address] [place] [address] Phone Care Team Providers Care Taxicab Dispatcher Name Role Phone Huseyin Dangelo MD Unavailable [phone] Brian Mon MD Primary Care Provider + Ernie Shaw MD Unavailable [phone] Encounter Details Date Type Department Care Team (Latest Contact Info) Description 10/26/2022 3:30 PM CDT Office Visit [facility] Rheumatology [facility] 5th [place] [address] [place] [address] Other systemic lupus erythematosus with other organ involvement (HCC) (Primary Dx); Systemic lupus erythematosus, unspecified [...] and Family Not on file 01/01/2021 Attends [facility] Not on file 01/01 Active Member [...] place to sleep or slept in a [place] facility (including now)? No 01/01/2021 Azalea Depression Scale Answer Date Recorded Azalea Depression Scale Total 11 01/11/2021 The thought [...] Reading Time Taken Comments Blood Pressure 122/78 10/26/2022 3:05 PM CDT Pulse 83 10/26/2022 3:05 PM CDT Temperature 36.8 ??C (98.3 ??F) 10/26/2022 3:05 PM CD T Respiratory Rate - - Oxygen Saturation - - Inhaled Oxygen Concentration - - Weight 80.6 kg (177 lb 12.8 oz) 10/26/2022 3:05 PM CDT Height 157.5 cm (5' 2 ) 10/26/2022 3:05 PM CDT Body Mass Index 32.52 10/26/2022 3:05 PM CDT documented in this encounter Ordered Prescriptions Prescription Sig Dispense Quantity Refills Last Filled Start Date End Date hydrOXYchloroQUINE (PLAQUENIL) 200 mg tabletIndications:S ystemic Lupus Erythematosus Take 1 tablet (200 mg total) by mouth daily 30 tablet 10/26/2022 documented in this encounter Progress Notes * Carolina Delarosa MD - 10/26/2022 3:30 PM CDT PATIENT NAME: Carito Madison : 1990 10/26/2022 HISTORY OF PRESENT ILLNESS: ia a 32 y.o. female with SLE. The patient was diagnosed with SLE in 2018 when she flared after a 2nd trimester loss. She was previously healthy and reported no symptoms through her . She has a positive BARAK 1:1280 centromere and homogeneous positive. She also has a positive double- stranded DNA, [employer] antibody and a low C4 and C3 [...] and prednisone 7.5 mg a day Interim She has about 15 months , last seen in office in December 2020, we did do a tele visit last in March 2021. She is currently on hydroxychloroquine 1 tablet a day and prednisone 5 mg daily. Before she gave she was on Benlysta which we had stopped at that point. Luckily she is not flared . She has adrenal insufficiency and follows with endocrinology and they are currently managing her steroids. She has not had an eye exam since Mar 2022 In terms of lupus symptoms she is occasional oral sores and some stiffness in her joints in the morning that lasts less than 30 minutes but really has not had any other symptoms. ALLERGIES: Allergies Allergen Reactions Macrobid [Nitrofurantoin Monohyd/M-Cryst] [...] Venlafaxine Itching CURRENT MEDICATION: Current Outpatient Medications: hydrOXYchloroQUINE (PLAQUENIL) 200 mg tablet, Take 2 tablets (400 mg total) by mouth daily, Disp: 180 tablet, Rfl: 1 omeprazole (PriLOSEC) 20 mg capsule, Take 1 capsule (20 mg total) by mouth daily, Disp: , Rfl: predniSONE (DELTASONE) 5 mg tablet, Take 1 tablet by mouth once daily, Disp: 90 tablet, Rfl: 0 sertraline (ZOLOFT) 25 mg tablet, Take 1 tablet (25 mg total) by mouth daily, Disp: , Rfl: fluconazole (DIFLUCAN) 150 mg tablet, Take 1 tablet (150 mg total) by mouth as directed Take one tab now. Repeat in days if symptoms persist. (Patient not taking: Reported on 04/21/2022), Disp: 2 tablet, Rfl: 0 naproxen (NAPROSYN) 500 mg tablet, [...] Disp: , Rfl: PHYSICAL EXAM: Vitals BP 122/78 (BP Location: Left arm, Patient Position: Sitting) Pulse 83 Temp 36.8 ??C (98.3 ??F) (Oral) Ht 157.5 cm (5' 2 ) Wt 80.6 kg (177 lb 12.8 oz) BMI 32.52 kg/m?? Physical Exam General examination is unremarkable There is no oral ulcers on lymphadenopathy today Skin is without any evidence of rash No tender or swollen joints today RS is clear to auscultation CVS S1-S2 is regular without a murmur or gallop No peripheral edema LABORATORY DATA: Lab Results Component Value Date WBC 10.6 (H) 05/23/2022 HGB 10.2 (L) 05/23/2022 HCT 34.4 (L) 05/23/2022 MCV 77.3 (L) 05/23/2022 LABPLAT 286 05/23/2022 Lab Results Component Value Date AST 13 05/23/2022 ALT 9 05/23/2022 CREATININE 0.74 05/23/2022 Lab Results Component Value Date SEDRATE 19 05/01/2022 Lab Results Component Value Date CRP 5.5 05/01/2022 ASSESSMENT AND PLAN: SLE In conclusion this [...] as she previously had very active disease. DISPOSITION: The patient will return follow up in 6 months Carolina Delarosa MD documented in this encounter Miscellaneous Notes * Addendum Note - Adolfo Mills CNA - 10/26/2022 3:30 PM CDTAddended by: ADOLFO MILLS on: 10/26/2022 03:37 PM Modules accepted: Orders * Addendum Note - Adolfo Mills CNA - 10/26/2022 3:30 PM CDTAddended by: ADOLFO MILLS on: 10/26/2022 03:52 PM Modules accepted: Orders documented in this encounter Plan of Treatment Not on file documented as of this encounter Results * CRP (acute phase) (10/26/2022 3:50 PM CDT) Pathologist [facility] C-Reactive Protein, Acute 4.0 <5.0 mg/L [facility] Blood 10/26/2022 3:50 PM CDT 10/26/2022 4:05 PM CDT us Carolina Delarosa MD LAB BLOOD ORDERABLES Final Result [facility] * C4 complement (10/26/2022 3:50 PM CDT) Pathologist [facility] Complement C4 20.0 10.0 - 40.0 mg/dL [facility] Blood 10/26/2022 3:50 PM CDT 10/26/2022 5:08 PM CDT Carolina Delarosa MD LAB BLOOD ORDERABLES Final Result [facility] [place] [address] * Erythrocyte sedimentation rate (10/26/2022 3:50 PM CDT) Pathologist [facility] Erythrocyte sedimentation rate 17 1 - 20 mm/hr [facility] Blood 10/26/2022 3:50 PM CDT 10/26/2022 5:08 PM CDT Carolina Delarosa MD LAB BLOOD ORDERABLES Final Result Performing Organization Address [facility] [place] [address] * Anti-double stranded DNA abs (10/26/2022 3:50 PM CDT) Pathologist [facility] dsDNA Ab 3.0 <=4.0 IUnits/mL [facility] Comment: Interpretive Data Negative: < or = 4 IUnits/mL Indeterminate: 5 - 9 IUnits/mL Positive: > or = 10 IUnits/mL Current interpretive data was last revised on 2016. Blood 10/26/2022 3:50 PM CDT 10/26/2022 5:08 PM CDT Carolina Delarosa MD LAB BLOOD ORDERABLES Final Result Performing Organization Address City/[facility] Co de Phone Number [facility] [place] [address] * C3 complement (10/26/2022 3:50 PM CDT) [facility] Complement C3 129.0 90.0 - 180.0 mg/dL [facility] Blood 10/26/2022 3:50 PM CDT 10/26/2022 5:08 PM CDT us Carolina Delarosa MD LAB BLOOD ORDERABLES Final Result [facility] [place] [address] * (ABNORMAL) Comprehensive metabolic panel (10/26/2022 3:50 PM CDT) Total Protein 7.5 6.1 - 8.4 g/dL [facility] Albumin 4.6 3.5 - 5.2 g/dL [facility] Calcium 9.7 8.6 - 10.3 mg/dL [facility] BUN 13 7 - 23 mg/dL [facility] Total Bilirubin 0.27 0.20 - 1.40 mg/dL [facility] Alk Phos, Total 50 35 - 129 IU/L [facility] AST (SGOT) 13 11 - 47 IU/L [facility] ALT (SGPT) 9 6 - 53 IU/L [facility] Comment:Repeated and Verifie d Creatinine 0.62 0.60 - 1.10 mg/dL [facility] Sodium 140 135 - 145 mmol/L [facility] Potassium 3.7 3.3 - 5.1 mmol/L [facility] Chloride 103 95 - 107 mmol/L [facility] CO2 Content 26 21 - 29 mmol/L [facility] Glucose 113(H) 64 - 99 mg/dL [facility] Comment: NONFASTING GLUCOSE RANGE = 64-199 mg/dL FASTING GLUCOSE 64 - 99 = NORMAL FASTING GLUCOSE 100 - 125 = IMPAIRED FASTING GLUCOSE FASTING GLUCOSE >=126 = PROVISIONAL DIAGNOSIS OF DIABETES eGFR >90.0 >60.0 mL/min/1.7 3 m2 [facility] Blood 10/26/2022 3:50 PM CDT 10/26/2022 4:05 PM CDT us Carolina Delarosa MD LAB BLOOD ORDERABLES Final Result [facility] * (ABNORMAL) CBC with auto differential (10/26/2022 3:50 PM CDT) White Blood Count 8.3 3.6 - 11.2 K/uL [facility] RBC 4.32 3.63 - 4.92 M/uL [facility] Hemoglobin 10.3(L) 11.9 - 15.5 g/dL [facility] Hematocrit 32.8(L) 36.1 - 44.3 % [facility] MCV 75.8(L) 80.0 - 97.6 fL [facility] MCH 23.8(L) 26.7 - 33.7 pg [facility] MCHC 31.4(L) 32.7 - 35.5 g/dL [facility] RBC Dist Width 17.7(H) 12.3 - 17.0 % [facility] Platelet Count 356 140 - 440 K/uL [facility] MPV 7.9 6.8 - 10.4 fL [facility] Neutrophils % 79.0(H) 38.7 - 74.5 % [facility] Lymphocyte % 13.8(L) 20.0 - 54.3 % [facility] Monocytes % 5.9 4.3 - 13.5 % [facility] Eosinophils % 0.7 0.0 - 6.0 % [facility] Basophil % 0.6 0.0 - 3.0 % [facility] Absolute Neutrophil 6.6 1.8 - 6.6 K/uL [facility] Absolute Lymphocyte 1.1 0.8 - 3.3 K/uL [facility] Absolute Monocyte 0.5 0.2 - 1.2 K/uL [facility] Absolute Eosinophil 0.1 0.0 - 0.5 K/uL [facility] Absolute Basophil 0.0 0.0 - 0.2 K/uL [facility] Nucleated RBC % 0.0 0.0 - 0.4 /100 WBC [facility] Blood 10/26/2022 3:50 PM CDT 10/26/2022 4:05 PM CDT us Carolina Delarosa MD LAB BLOOD ORDERABLES Final Result Performing Organization Address City/[facility]/ZIP Co de Phone Number [facility] * Protein / creatinine ratio, urine, random (10/26/2022 3:37 PM CDT) Protein, ur, quant 7.4 mg/dL [facility] Comment: Interpretive Data No reference range established. Current interpretive data was last revised 2018. Creatinine Ur 100.5 mg/dL [facility] Comment: Interpretive Data No reference range established. Current interpretive data was last revised 2018. Protein/creatinin e ratio 73.6 0.0 - 180.0 mg/g CR [facility] Urine 10/26/2022 3:37 PM CDT 10/26/2022 5:07 PM CDT Carolina Delarosa MD LAB URINE ORDERABLES Final Result Performing Organization Address [facility] de Phone Number [facility] [place] [address] * Urinalysis reflex to microscopic and culture Urine (10/26/2022 3:37 PM CDT) Color, ur Straw Yellow [facility] Clarity, ur Clear Clear [facility] Specific gravity, ur 1.018 1.003 - 1.030 [facility] pH, urine 6.0 [facility] Protein, ur ql Trace Negative [facility] Glucose, ur ql Negative Negative [facility] Ketones, ur Negative Negative [facility] Bilirubin, ur Negative Negative [facility] Blood, ur Negative Negative [facility] Urobilinogen, ur <2.0 <2.0 mg/dL [facility] Nitrite, ur Negative Negative [facility] Leukocyte esterase, ur Negative Negative [facility] UA reflex comment Reflex conditions for microscopic UA and culture not met. [facility] Urine 10/26/2022 3:37 PM CDT 10/26/2022 5:07 PM CDT Narrative [facility] - 10/26/2022 5:38 PM CDT ?? Urine pH is affected by diet, medications, systemic acid-base disturbances, and renal tubular function. ??pH may affect urinary stone formation. ??For example, urine pH below 6.0 may help reduce the tendency for calcium phosphate stones and pH greater than 6.0 may reduce the tendency for uric acid stone formation. Source: [employer]. Last revised 03-08-2017 Carolina Delarosa MD LAB MICROBIOLOGY - GENERAL ORDERABLES Final Result [facility] [place] [address] documented in this encounter Visit Diagnoses Diagnosis Other systemic lupus erythematosus with other organ involvement (HCC)- Primary Systemic lupus erythematosus, unspecified SLE type, unspecified organ involvement status (HCC) Other systemic lupus erythematosus with other organ involvement (HCC) documented in this encounter Discontinued Medications Medication Sig Discontinue Reason Start Date End Da te hydrOXYchloroQUINE (PLAQUENIL) 200 mg tabletIndications:Systemi c Lupus Erythematosus Take 2 tablets (400 mg total) by mouth daily Reorder 04/27/2022 10/26/2022 documented as of this encounter Historical Medications * This list may reflect changes made after this encounter. tobramycin (TOBREX) 0.3 % ophthalmic solution every 4 (four) hours 06/08/2022 4 terconazole (TERAZOL 3) 80 mg vaginal suppository Insert 1 suppository (80 mg total) into the vagina daily 03/17/2022 4 added in this encounter Care Teams Taxicab Dispatcher Relationship Specialty [place] [id number] [address] [address] PCP - General 07/04/19 [place] [address] [address] [place] [address] 11/16/18 Ernie Shaw MD [address] [facility] [address] [address] Mailroom Coordinator Obstetrics and Gynecology 06/10/20 documented as of this encounter
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
--- OUTSIDE RECORDS SUMMARY | 2024-02-24 19:58 | XMS_ITS | Encounter Summary ---
Author Organization [facility] Healthcare Address [address] [place] [address] Care Team Providers Care Collar Folder Operator Name Role Phone Huseyin Dangelo MD Unavailable [phone] Brian Mon MD Primary Care Provider + Ernie Shaw MD Unavailable [phone] Encounter Details Date Type Department Care Team (Latest Contact Info) Description 08/16/2023 4:19 PM CDT - 08/16/2023 11:59 PM CDT Hospital Encounter [facility] [address] [place] [address] Other systemic lupus erythematosus with other organ [...] and Family Not on file 01/01/2021 Attends Hindu Services Not on file 01/01 Active Member [...] place to sleep or slept in a assisted (including now)? No 01/01/2021 Delcambre Depression Scale Answer Date Recorded Delcambre Depression Scale Total 11 01/11/2021 The thought [...] SIX TIMES DAILY (3 HOURS APART) 08/24/2022 cyclobenzaprine (FLEXERIL) 5 mg tablet TAKE 1 TABLET BY MOUTH THREE TIMES A DAY NEEDED FOR MUSCLE SPASM 08/04/2023 omeprazole (PriLOSEC) 20 mg capsule Take 1 [...] if symptoms persist. 2 tablet 03/23/2022 4 hydroxychloroquine (PLAQUENIL) 200 mg tabletIndications: Systemic Lupus Erythematosus Take 1 tablet (200 mg total) by mouth daily 90 tablet 06/11/2023 4 lidocaine 5 % cream Apply 2 mL topically 2 (two) times a day 14 g 06/30/2023 4 naproxen (NAPROSYN) 500 mg tablet Take 1 tablet (500 mg total) by mouth 2 (two) times a day as needed for pain Take with food. 30 tablet 03/25/2022 4 predniSONE (DELTASONE) 5 mg tabletIndications: Gume disease (HCC) Take 1 tablet by mouth once daily 15 tablet 08/15/2023 4 terconazole (TERAZOL 3) 80 mg vaginal suppository Insert 1 suppository (80 mg total) into the vagina daily 03/17/2022 4 tobramycin (TOBREX) 0.3 % ophthalmic solution every 4 (four) hours 06/08/2022 4 documented as of this encounter Discharge Disposition Disposition Code Departure Means Destination Discharge to home or self care documented in this encounter Miscellaneous Notes * Result Encounter Note - Carolina Delarosa MD - 08/16/2023 11:59 PM CDT More anemic compared to before , lupus numbers are very stable Looks like she may be iron deficient - please d/w PCP documented in this encounter Plan of Treatment Not on file documented as of this encounter Procedures Procedure Name Priority Date/Time Associated Diagnosis Comments ANTI-DOUBLE STRANDED DNA ANTIBODIES Routine 08/16/2023 4:19 PM CDT Other systemic lupus erythematosus with other organ involvement (HCC) EGFR Routine 08/16/2023 4:19 PM CDT Other systemic lupus erythematosus with other organ involvement (HCC) DIFFERENTIAL AUTO Routine 08/16/2023 4:1 9 PM CDT Other systemic lupus erythematosus with other organ involvement (HCC) C4 COMPLEMENT Routine 08/16/2023 4:19 PM CDT Other systemic lupus erythematosus with other organ involvement (HCC) URINALYSIS AND REFLEX TO MICROSCOPIC AND CULTURE Routine 08/16/2023 4:19 PM CDT Other systemic lupus erythematosus with other organ involvement (HCC) CBC WITH AUTO DIFFERENTIAL Routine 08/16/2023 4:19 PM CDT Other systemic lupus erythematosus with other organ involvement (HCC) PROTEIN / CREATININE RATIO, URINE, RANDOM Routine 08/16/2023 4:19 PM CDT Other systemic lupus erythematosus with other organ involvement (HCC) URINALYSIS, MICROSCOPIC ONLY Routine 08/16/2023 4:19 PM CDT Other systemic lupus erythematosus with other organ involvement (HCC) ERYTHROCYTE SEDIMENTATION RATE Routine 08/16/2023 4:19 PM CDT Other systemic lupus erythematosus with other organ involvement (HCC) C3 COMPLEMENT Routine 08/16/2023 4:19 PM CDT Other systemic lupus erythematosus with other organ involvement (HCC) CRP (ACUTE PHASE) Routine 08/16/2023 4:1 9 PM CDT Other systemic lupus erythematosus with other organ involvement (HCC) COMPREHENSIVE METABOLIC PANEL Routine 08/16/2023 4:19 PM CDT Other systemic lupus erythematosus with other organ involvement (HCC) documented in this encounter Results * eGFR (08/16/2023 4:19 PM CDT) eGFR >90 >=60 mL/min/1. 73 m2 Comment: Interpretive Data Reference Interval Normal ?>/= [...] interpretive data was last reviewed 2020. Blood 08/16/2023 4:19 PM CDT 08/16/2023 8:10 PM CDT Carolina Delarosa MD LAB BLOOD ORDERABLES Final Result [facility] [address] Department [place] [address] * (ABNORMAL) Urinalysis, microscopic only (08/16/2023 4:19 PM CDT) WBC, ur 0-5 0 - 5 /HPF RBC, ur 0-2 0 - 2 /HPF [facility] Epithelial cells, squamous, ur 21-50(A) 0 - 5 /HPF [facility] Comment:Suggestive of contam ination. Consider recollection by clean catch. Mucous, ur Present(A) [facility] Culture Reflex Comment Reflex conditions for urine culture (WBC >10) not met. [facility] Urine 08/16/2023 4:19 PM CDT 08/16/2023 7:41 PM CDT Carolina Delarosa MD LAB URINE ORDERABLES Final Result Performing Organization Address [facility] de Phone Number [facility] POLLARD [address] Department [place] [address] * (ABNORMAL) Differential, auto (08/16/2023 4:19 PM CDT) Neutrophil abs 7.1(H) 1.5 - 6.5 K/cumm Imm gran abs 0.0 0.0 - 0.1 K/cumm [facility] Lymphocyte abs 1.4 0.8 - 3.3 K/cumm [facility] Monocyte abs 0.5 0.2 - 0.8 K/cumm [facility] Eosinophil abs 0.1 0.0 - 0.5 K/cumm [facility] Basophil abs 0.0 0.0 - 0.1 K/cumm [facility] Neutrophil pct 77.8 % [facility] Comment: Interpretive Data Percent cell count reference ranges are not reported, since discordance with absolute values may lead to misinterpretation of CBC data. Current Interpretive Data was last revised on 2017. Imm gran pct 0.3 % [facility] Comment: Interpretive Data Percent cell count reference ranges are not reported, since discordance with absolute values may lead to misinterpretation of CBC data. Current Interpretive Data was last revised on 2017. Lymphocyte pct 15.4 % [facility] Comment: Interpretive Data Percent cell count reference ranges are not reported, since discordance with absolute values may lead to misinterpretation of CBC data. Current Interpretive Data was last revised on 2017. Monocyte pct 5.7 % [facility] Comment: Interpretive Data Percent cell count reference ranges are not reported, since discordance with absolute values may lead to misinterpretation of CBC data. Current Interpretive Data was last revised on 2017. Eosinophil pct 0.5 % [facility] Comment: Interpretive Data Percent cell count reference ranges are not reported, since discordance with absolute values may lead to misinterpretation of CBC data. Current Interpretive Data was last revised on 2017. Basophil pct 0.3 % [facility] Comment: Interpretive Data Percent cell count reference ranges are not reported, since discordance with absolute values may lead to misinterpretation of CBC data. Current Interpretive Data was last revised on 2017. Blood 08/16/2023 4:19 PM CDT 08/16/2023 7:41 PM CDT Carolina Delarosa MD LAB BLOOD ORDERABLES Final Result Performing Organization Address [facility] Phone Number [facility] [phone] [facility] [place] Department [place] [address] * Protein / creatinine ratio, urine, random (08/16/2023 4:19 PM CDT) Protein, ur, quant 15.9 mg/dL Comment: Interpretive Data No reference range established. Current interpretive data was last revised 2018. Creatinine Ur 313.5 mg/dL [facility] Comment: Interpretive Data No reference range established. Current interpretive data was last revised 2018. Protein/creatinin e ratio 50.7 0.0 - 180.0 mg/g CR [facility] Urine 08/16/2023 4:19 PM CDT 08/16/2023 7:41 PM CDT Carolina Delarosa MD LAB URINE ORDERABLES Final Result Performing Organization Address [facility] Co de Phone Number [facility] POLLARD [address] [place] [address] * C4 complement (08/16/2023 4:19 PM CDT) Complement C4 19 10 - 40 mg/dL Blood 08/16/2023 4:19 PM CDT 08/16/2023 7:41 PM CDT Carolina Delarosa MD LAB BLOOD ORDERABLES Final Result Performing Organization Address [facility] de Phone Number ARPITA POLLARD [address] [place] [address] * (ABNORMAL) Urinalysis reflex to microscopic and [...] tendency for uric acid stone formation. Source: [facility] Current Interpretive Data was last revised on [...] GENERAL ORDERABLES Final Result Performing Organization Address [facility] Co de Phone Number [facility] POLLARD [address] [place] [address] * Erythrocyte sedimentation rate (08/16/2023 4:19 PM CDT) Erythrocyte sedimentation rate 10 1 - 20 mm/hr Blood 08/16/2023 4:19 PM CDT 08/16/2023 7:41 PM CDT Carolina Delarosa MD LAB BLOOD ORDERABLES Final Result Performing Organization Address [facility] Co de Phone Number ARPITA POLLARD [address] [facility] [place] [address] * Anti-double stranded DNA abs (08/16/2023 4:19 PM CDT) dsDNA Ab 3.0 <=4.0 IUnits/mL Comment: Interpretive Data Negative: < or = 4 IUnits/mL Indeterminate: 5 - 9 IUnits/mL Positive: > or = 10 IUnits/mL Current interpretive data was last revised on 2016. Testing performed by: [facility], [address] [place] [address] Blood 08/16/2023 4:19 PM CDT 08/17/2023 10:16 AM CDT Carolina Delarosa MD LAB BLOOD ORDERABLES Final Result Performing Organization Address [facility] Co de Phone Number ARPITA POLLARD [address] [place] [address] * CRP (acute phase) (08/16/2023 4:19 PM CDT) CRP 4.4 <=10.0 mg/L Blood 08/16/2023 4:19 PM CDT 08/16/2023 7:41 PM CDT Carolina Delarosa MD LAB BLOOD ORDERABLES Final Result [facility] POLLARD [address] [place] [address] * C3 complement (08/16/2023 4:19 PM CDT) Complement C3 137 90 - 180 mg/dL Blood 08/16/2023 4:19 PM CDT 08/16/2023 7:41 PM CDT Carolina Delarosa MD LAB BLOOD ORDERABLES Final Result Performing Organization Address [facility] Co de Phone Number ARPITA POLLARD [phone] [employer] [place] [address] * Comprehensive metabolic panel (08/16/2023 4:19 PM CDT) Sodium 139 135 - 145 mmol/L Potassium, pl 4.1 3.3 - 4.9 mmol/L [facility] Chloride 104 97 - 110 mmol/L [facility] CO2 23 22 - 32 mmol/L [facility] Anion gap 12 2 - 15 mmol/L [facility] BUN 18 6 - 25 mg/dL [facility] Creatinine 0.72 0.60 - 1.10 mg/dL [facility] Glucose 132 70 - 199 mg/dL [facility] Comment: Interpretive Data Fasting glucose >/= 126 [...] MD LAB BLOOD ORDERABLES Final Result ARPITA [address] [place] [address] * (ABNORMAL) CBC with auto differential (08/16/2023 4:19 PM CDT) Pathologist [facility] WBC 9.1 3.8 - 9.9 K/cumm Hgb [...] BLOOD ORDERABLES Final Result Performing Organization Address City/[facility]/ZIP Co de Phone Number ARPITA POLLARD [address] [place] [address] documented in this encounter Visit Diagnoses Diagnosis Other systemic lupus erythematosus with other organ involvement (HCC) documented in this encounter Care Teams Collar Folder Operator Relationship Specialty [place] [address] [address] [facility] [place] [address] PCP - General 07/04/19 [place] [address] [address] [facility] [place] [address] 11/16/18 Ernie Shaw MD [address] [place] [address] [address] [place] [address] Community Health Program Coordinator Obstetrics and Gynecology 06/10/20 documented as of this encounter
--- OUTSIDE RECORDS SUMMARY | 2024-02-24 19:58 | XMS_ITS | Encounter Summary ---
Author Organization [facility] [employer] [facility] Address [address] [place] [address] Phone Care Team Providers Care Screwdown Operator Name Role Phone Huseyin Dangelo MD Unavailable [phone] Brian Mon MD Primary Care Provider + Ernie Shaw MD Unavailable [phone] Reason for Visit * Reason Onset Date Comments Pre-op Instructions 09/14/2023 Encounter Details Date Type Department Care Team (Late st Contact Info) Description 09/14/2023 Telephone [facility] Endocrinology Metabolism and Lipid [address] [facility] [address] Office [address], [address] [place] [address] Tran Lauren RMA Pre-op Instructions Social History Tobacco Use Types Packs/Day Years [...] and Family Not on file 01/01/2021 Attends Christianity Services Not on file 01/01 Active Member [...] place to sleep or slept in a skilled nursing (including now)? No 01/01/2021 Redwood Depression Scale Answer Date Recorded Redwood Depression Scale Total 11 01/11/2021 The thought [...] encounter Miscellaneous Notes * Telephone Encounter - Xin Tran HamiltonBELLO - 09/20/2023 8:23 AM CDT See Mychart response. * Telephone Encounter - Tran LaurenBELLO - 09/14/2023 9:02 AM CDT Pt called stating that she is having surgery on September 26 for Breast Reduction. She stated that the surgeon is wondering if she is needing to do any stress dosing or any other instructions for Pre op and post op. Pt also said that Dr. Delarosa informed her that her iron was low and may need treatment before the procedure. Per Dr. Delarosa's note to the pt she is to follow up with her PCP for any treatmentfor her iron. documented in this encounter Plan of Treatment Not on file documented as of this encounter Visit Diagnoses Not on filedocumented in this encounter Care Teams Screwdown Operator Relationship Specialty [place] [address] [address] [facility] [place] [address] PCP - General 07/04/19 [place] [address] [address] [facility] [place] [address] 11/16/18 Ernie Shaw MD [address] [place] [address] [address] [place] [address] Pss Delivery Professional Obstetrics and Gynecology 06/10/20 documented as of this encounter
--- OUTSIDE RECORDS SUMMARY | 2024-02-24 19:58 | XMS_ITS | Clinical Summary ---
Author Organization [facility] Address [address] [place] [address] Care Team Providers Care Performing Arts Technicians Name Role Phone Huseyin Dangelo MD Unavailable Brian Mon MD Primary Care Provider + Ernie Shaw MD Unavailable [phone] Allergies Active Allergy Reactions Criticality Noted Date [...] daily Active predniSONE (DELTASONE) 5 mg tabletIndication s:[place] disease (HCC) TAKE 1 TABLET BY MOUTH [...] unspecified SLE type, unspecified organ involvement status ([facility]) Take 2 tablets (400 mg total) by [...] in third trimester 11/19 Overview (12/27/2020): 11/09/20 [facility] POCT Hgb 9.3 - pt reported [...] GI consult. Dr. Shukla to room to family service counselor patient regarding risks of daily bleeding [...] PAS. We discussed recommendation for evaluation in [facility] secondary to nonspecific cramping in inguinal region. Patient declines as this is typical for her. [facility] precautions. She is scheduled for delivery [...] easily managed by the pediatricians, and no intermediate designer effects have ever been demonstrated. We discussed [...] [NR ], GC/CT [negative/negative] [x] Genetic Screening: [place] low risk 07/09 [x] CBC/Hgb 11.7/35.0/306 [x] [...] Flu Shot (Oct-Jan): declines, previously had Guillian Orinda [x] Tdap (27-36wks): 11/23/2020 [x] COVID Vaccine: s/p both doses 3rd Tri Labs: [x] CBC/HIV/RPR: 10.1/31.6/233/ HIV:NR/ RPR: NR [x] GBS: POSITVE [x] COVID testing: set up for 12/27/20 at [facility] [x] hibiclens Provided 12/20 Counselling [x] [...] LARCS [] Method of feeding: Breast [] Optoelectronic Technician: [] PP Depression Discussed: Assessment & Plan (12/06/2020 4:57 PM CDT): Patient declined flu vaccine given prior Guillan Orinda reaction. Secondary adrenal insufficiency (CMS/HCC) 2020 Overview [...] (05/12/2020): Added automatically from request for surgery [id number] Bilateral chronic serous otitis media 03/31/2020 Adrenal insufficiency (CMS/HCC) 03/04/2020 Overview (12/20/2020): Suspected secondary adrenal insufficiency- Current regimen: 7.5 mg daily - Delivery plan (per Dr. Cortes coffee supervisor): IV infusion of hydrocortisone 200 mg/24 hours and 15 mg/daily of prednisone for the following 48 hours. After that, can decrease the dose to 5 mg daily. Assessment & Plan (12/06/2020 4:56 PM CDT): Endocrinology notes reviewed. Prednisone dose was increased on 11/30 to 7.5 mg/day. Plan for stress dose steroids intradelivery reviewed. 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 She may warrant evaluation with her Developmental Psychologist if this problem persists. Precautions reviewed. Resolved [...] we will discuss a referral for imagining. [facility] precautions reviewed. 10/26/2020 now resolved Nausea and vomiting 07/16/2019 12/28/19 Overview (07/16/2019): Added automatically from request for surgery [id number] Assessment & Plan (07/16/2019 11:42 AM CDT): [...] (07/16/2019): Added automatically from request for surgery [id number] Gastroesophageal reflux disease 07/16/2019 12/27/2020 Overview (07/16/2019): Added automatically from request for surgery [id number] Diarrhea 07/16/2019 12/27/2020 Overview (07/16/2019): Added automatically from request for surgery [id number] Assessment & Plan (07/16/2019 11:44 AM CDT): [...] (07/16/2019): Added automatically from request for surgery [id number] Assessment & Plan (07/16/2019 11:42 AM CDT): Epigastric abdominal pain that started 2 days ago. Also having diarrhea, N/V. Will schedule EGD and colonoscopy. Nausea with vomiting 07/16/2019 021 Overview (07/28/2019): Added automatically from request for surgery [id number] AP (abdominal pain) 07/16/2019 12/28/19 21 Overview (07/28/2019): Added automatically from request for surgery [id number] Diarrhea of presumed infectious origin 05/24/2019 07/16/2019 Immunizations Name Administration Dates Next Due Pfizer SARS-CoV-2 Monovalent Vaccination (12+ Yrs) PURPLE 10/12/2020,10/12/2020,05/20/2020,2020 Tdap 11/23/2020,12/01/2018 Surgical History Surgery Date Site/Laterality Comments DILATION AND CURETTAGE OF UTERUS 8 - 10/26/2017 HAND SURGERY WRIST SURGERY 12/09/2018 Right rt wrist median nerve repair, allograft nerve wrap application COLONOSCOPY 07/29/2019 1st ESOPHAGOGASTRODUODENOSCOPY 07/28/2019 - 08/26/2019 APPENDECTOMY BREAST BIOPSY 02/23/2021 Right Medical History Medical History Date Comments 07/13/2015 Lupus Anemia Rheumatoid arthritis (HCC) PONV (postoperative nausea a nd vomiting) Chronic diarrhea Headache, tension-type Anxiety Depression Anxiety disorder currently on no meds Asthma never hospitaliz ed/intubated. albuterol as needed Seizures (HCC) reaction to a me dication Chronic kidney disease lupus nep hritis Family History Medical History Relation Name Comments Heart disease Father Stroke Father Diabetes Mother Gout Mother Hypertension Mother Colon cancer Other great gf Relation Name Status Comments Father Mother Other great gf Alive Social History Tobacco Use Types Packs/Day Years [...] and Family Not on file 01/01/2021 Attends Amish Services Not on file 01/01 Active Member [...] place to sleep or slept in a fpc (including now)? No 01/01/2021 [place] Depression Scale Answer Date Recorded [place] Depression Scale Total 11 01/11/2021 The thought [...] file Not on file Not on file Obstetrics History Para Term AB IAB SAB Ectopic Multiple Livin g Live Births 3 1 1 2 2 0 1 1 Date Outcome GA Total Labor Labor/2nd/3rd Weight Sex Type Anes PTL Teressa A1 A5 Name Clin 2017 SAB 16w 0d 2020 36w 0d 0h 01m 0h 01m 3.3 kg (7 lb 4.4 oz) F CS-LT ranv Spinal N Livin g 1 3 TOM RogersGIR Darius Garcia MD Complications:Placenta Previ a,Post Hemorrhage Delivery Location:[facility] Main C [facility] ([facility] L AND D PROCEDURE) Last Filed Vital Signs Vital Sign Reading [...] 10/22/2023 10:34 AM CDT Plan of Treatment Health Maintenance Due Date Last Done Comments Hepatitis C Screening 1992 Pneumococcal vaccine <65 (1 of 2 - PCV) 1998 Varicella Vaccines (1 of 2 - 13+ 2-dose series) 2005 Hepatitis B Screening 2010 Regular Well Visit/Exam 18-64 2010 Zoster Vaccine (1 of 2) 05/11/2011 Cervical Cancer Screening 05/31/2021 05/31/2020 Depression Screening 01/11/2022 01/11/2021, 05/24/19 20 Covid-19 Vaccine ( season) 2023 10/12/2020, 10/12/2020, 05/20/2020, Additional history exists Influenza Vaccine (#1) 2023 DTaP/Tdap/Td Vaccine (3 - Td or Tdap) 11/23/2030 11/23/2020, 12/01/2018 HPV Vaccines Aged Out No longer eligi ble based on patient's age to complete this topic Advance Directives For more information, please contact: [phone] * Full Code (Latest Code Status on [...] 10:27 AM 07/29/2019 10:27 AM Care Teams Performing Arts Technicians Relationship Specialty [place] [address] [address] PCP - General 07/04/19 [place] [address] [address] [address] 11/16/18 Ernie Shaw MD [address] [place] [address] [address] [place] [address] 7Th Grade Social Studies Teacher Obstetrics and Gynecology 06/10/20
--- OUTSIDE RECORDS SUMMARY | 2024-02-24 19:58 | XMS_ITS | Encounter Summary ---
Author Organization [facility] [employer] [facility] Address [address] [place] [address] Phone Care Team Providers Care Manager Rn Name Role Phone Huseyin Dangelo MD Unavailable [phone] Brian Mon MD Primary Care Provider + Ernie Shaw MD Unavailable [phone] Reason for Visit * Reason Onset Date Comments Adrenal Problem 05/24/2022 Encounter Details Date Type Department Care Team (Late st Contact Info) Description 05/24/2022 Telephone [facility] Endocrinology Metabolism and Lipid [address] [facility] Medical Office [address], [address] [place] [address] Tran Lauren RMA Adrenal Problem Social History Tobacco Use Types Packs/Day Years [...] and Family Not on file 01/01/2021 Attends Mandaeism Services Not on file 01/01 Active Member [...] in a fpc (including now)? No 01/01/2021 [place] Depression Scale Answer Date Recorded [place] Depression Scale Total 11 01/11/2021 The thought [...] encounter Miscellaneous Notes * Telephone Encounter - Tran Lauren RMA - 05/24/2022 3:00 PM CDT Pt called and stated that she was in the hospital for possible adrenal crisis and was told to follow up with our office. Spoke with Dr. Fernandez who stated that yes the pt can increase her prednisone toeither 10 or 15 mg while she is symptomatic and then titrate back down to 5 mg. Called and left a detailed vm notifying the pt of this information. documented in this encounter Plan of Treatment Not on file documented as of this encounter Visit Diagnoses Not on filedocumented in this encounter Care Teams Manager Rn Relationship Specialty [place] [address] [address] [facility] [place] [address] PCP - General 07/04/19 [place] [address] [address] [facility] [place] [address] 11/16/18 Ernie Shaw MD [address] [place] [address] [address] [place] [address] Safety Person Obstetrics and Gynecology 06/10/20 documented as of this encounter
--- OUTSIDE RECORDS SUMMARY | 2024-02-24 19:58 | XMS_ITS | Encounter Summary ---
Author Organization [facility] Address [address] [place] [address] Phone Care Team Providers Care Data Network Architect Name Role Phone Huseyin Dangelo MD Unavailable [phone] Brian Mon MD Primary Care Provider + Ernie Shaw MD Unavailable [phone] Encounter Details Date Type Department Care Team (Late st Contact Info) Description 10/31/2022 Telephone [facility] Rheumatology [address] [facility] Advanced Medicine 5th [place] [address] [place] [address] Raji Johnson, [facility] [address] [place], [place] [id number] Social History Tobacco Use Types Packs/Day Years [...] and Family Not on file 01/01/2021 Attends [employer] Not on file 01/01 Active Member [...] place to sleep or slept in a fdc (including now)? No 01/01/2021 [place] Depression Scale Answer Date Recorded [place] Depression Scale Total 11 01/11/2021 The thought [...] encounter Miscellaneous Notes * Telephone Encounter - Raji Johnson LCSW - 10/31/2022 2:31 PM CDT Spoke with pt re: insurance. Pt states she wishes to stay self-pay at this time, acknowledging risks of unexpected medical coststhat could arise. Raji Johnson LCSW 10/31/2022 2:35 PM [phone] documented in this encounter Plan of Treatment Not on file documented as of this encounter Visit Diagnoses Not on filedocumented in this encounter Care Teams Data Network Architect Relationship Specialty [place] [id number] [address] [place] [address] PCP - General 07/04/19 [place] [id number] [address] [facility] [address] 11/16/18 Ernie Shaw MD [address] [place] [address] [address] [place] [address] [facility] [employer] 06/10/20 documented as of this encounter
--- OUTSIDE RECORDS SUMMARY | 2024-02-24 19:58 | XMS_ITS | Encounter Summary ---
Author Organization [facility] Healthcare Address [address] [place] [address] Care Team Providers Care Marble Mason Name Role Phone Huseyin Dangelo MD Unavailable [phone] Brian Mon MD Primary Care Provider + Ernie Shaw MD Unavailable [phone] Reason for Visit * Reason Comments Vomiting Bladder pain N/V/D Encounter Details Date Type Department Care Team (Late st Contact Info) Description 05/23/2022 3:43 AM CDT - 05/23/2022 11:11 AM CDT Emergency [facility] Emergency Department [address] [place] [address] Nina Faith MD 1 [facility] EMER[place] [address] Nohelia Whitney MD [address] [place] [id number] Nausea and vomiting, unspecified vomiting type (Primary Dx); Diarrhea, unspecified type; Tachycardia; Mass of lower outer quadrant of right breast; Liver mass Discharge Disposition: Left Against Medical Advice Social History Tobacco Use Types Packs/Day Years [...] in a fpc (including now)? No 01/01/2021 [place] Depression Scale Answer Date Recorded [place] Depression Scale Total 11 01/11/2021 The thought [...] Sign Reading Time Taken Comments Blood Pressure 133/89 05/23/2022 11:10 AM CDT Pulse 140 05/23/2022 11:10 AM CDT Temperature 37 ??C (98.6 ??F) 05/23/2022 2:48 AM CDT Respiratory Rate 20 05/23/2022 11:10 AM CDT Oxygen Saturation 100% 05/23/2022 11:10 AM CDT Inhaled Oxygen Concentration - - Weight 79.4 kg (175 lb) 05/23/2022 2:48 AM CDT Height 157.5 cm (5' 2 ) 05/23/2022 2:48 AM CDT Body Mass Index 32.01 05/23/2022 2:48 AM CDT documented in this encounter Medications at Time of Discharge omeprazole (PriLOSEC) 20 mg capsule Take 1 [...] days if symptoms persist. 2 tablet 03/23/2022 hydrOXYchloroQUINE (PLAQUENIL) 200 mg tabletIndications: Systemic Lupus Erythematosus Take 2 tablets (400 mg total) by mouth daily 180 tablet 1 04/27/2022 3 naproxen (NAPROSYN) 500 mg tablet Take 1 tablet (500 mg total) by mouth 2 (two) times a day as needed for pain Take with food. 30 tablet 03/25/2022 4 predniSONE (DELTASONE) 5 mg tablet Take 1 tablet (5 mg) by mouth daily 90 tablet 03/27/2022 3 terconazole (TERAZOL 3) 80 mg vaginal suppository Insert 1 suppository (80 mg total) into the vagina daily 03/17/2022 4 documented as of this encounter Discharge Disposition Disposition Code Departure Means Destination Comment s Left Against Medical Advice documented in this encounter Nursing Notes * Alpa Levi RN - 05/23/2022 3:59 AM CDT Pt very anxious running in and out of bathroom,I was unable to draw blood . Pt asked Ivette for couple blankets and Ivetet sent message to Shirley asking her to bring back blankets for pt.'pt accused us of being unprofessional stating we were sending means' back and fourth ,I explained to her it was for her blankets.She made a pallet and lay ed in the middle of the floor. also explained to her if she would hold still and let me draw her blood I could get her treatment started. Pt stated she would let me and I jayy her blood sent it to lab.pt then said 'if I don't get my prednisone im going in adrenal crisis. I asked what time it was due ,she stated 0500 I explained it was only 0315,she the said ' by th way I also have kidney.disease.I explained to her that now we have her blood the ERP would see her and we would take good of her. Pt placed in room and warm blankets provided. documented in this encounter ED Notes * Nina Faith MD - 05/23/2022 6:22 AM CDT HPI Chief Complaint Patient presents with Vomiting Bladder pain N/V/D HPI Patient History: This 32-year-old female history of ADHD, adrenal insufficiency who presents with nausea vomiting diarrhea and dysuria since yesterday. Upon my entry to work and into the room the patient is very agitated. She states she has had suprapubic pain and bladder spasms since yesterday then she developed nausea vomiting and watery profuse diarrhea. She adds that she has back pain which extends from her bra strap through her sacrum for the last week and a half to 2 weeks since her doctor put her on a new lupus med that this is since been stopped. She states she is tired of being here and just wants to go home. She has refused dexamethasone which was ordered prior to my arrival stating it makes her definitelyill. She states she is allergic to Solu-Medrol and gives her anaphylaxis. The only steroid she can take his 5 mg of prednisone daily and she would like this now. 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/24/2019 Epilepsy undetermined as to focal or generalized (CMS/HCC) ([facility]) 08/26/2019 Liver lesion 07/16/2019 BMI 29.0-29.9,adult 07/16/2019 Tachycardia Cough 05/24/2019 Lupus (CMS/HCC) ([facility]) 05/24/2019 Miscarriage 05/24/2019 Laceration of flexor muscle, [...] and vomiting) 07/13/2015 Rheumatoid arthritis (HCC) Seizures (CMS/HCC) (HCC) reaction to a medication Past Surgical [...] Social History Tobacco Use Smoking status: Former Types: Cigarettes Quit date: 12/28/2018 Years since quittin.4 Smokeless tobacco: Never Vaping Use Vaping Use: Never used Substance and Sexual Activity Alcohol use: Yes Comment: occasionally Drug use: Not Currently Types: Marijuana Comment: 01/09 - denies Sexual activity: Defer Partners: Male Social History Social History Narrative Not on file Review of Systems Review of Systems Constitutional: Negative for appetite change. HENT: Negative for congestion. Eyes: Negative for itching. Respiratory: Negative for cough. Cardiovascular: Negative for chest pain. Gastrointestinal: Positive for diarrhea, nausea and vomiting. Endocrine: Negative for heat intolerance. Genitourinary: Positive for dysuria. Musculoskeletal: Negative for back pain. Allergic/Immunologic: Negative for food allergies. Neurological: Negative for seizures. Hematological: Negative for adenopathy. Psychiatric/Behavioral: Positive for agitation. Physical Exam ED Triage Vitals [05/23/22 0248] Temp Pulse Resp BP SpO2 37 ??C (98.6 ??F) (!) 127 18 143/83 100 % Temp src Heart Rate Source Patient Position BP Location FiO2 (%) Tympanic -- -- -- -- Height Height Method Weight Weight Method 1.575 m (5' 2 ) Stated 79.4 kg (175 lb) -- Physical Exam Constitutional: Appearance: Normal appearance. She is normal weight. She is not ill-appearing. HENT: Head: Normocephalic and atraumatic. Right Ear: External ear normal. Left Ear: External ear normal. Nose: Nose normal. Mouth/Throat: Mouth: Mucous membranes are moist. Pharynx: Oropharynx is clear. Eyes: Extraocular Movements: Extraocular movements intact. Conjunctiva/sclera: Conjunctivae normal. Pupils: Pupils are equal, round, and reactive to light. Cardiovascular: Rate and Rhythm: Normal rate and regular rhythm. Pulses: Normal pulses. Heart sounds: Normal heart sounds. Pulmonary: Effort: Pulmonary effort is normal. Breath sounds: Normal breath sounds. Abdominal: General: Bowel sounds are normal. Palpations: Abdomen is soft. Tenderness: There is no abdominal tenderness. Genitourinary: General: Normal vulva. Musculoskeletal: General: Normal range of motion. Cervical back: Normal range of motion and neck supple. Right lower leg: No edema. Left lower leg: No edema. Skin: General: Skin is warm. Capillary Refill: Capillary refill takes less than 2 seconds. Neurological: General: No focal deficit present. Mental Status: She is alert and oriented to person, place, and time. Cranial Nerves: No cranial nerve deficit. Sensory: No sensory deficit. Motor: No weakness. Coordination: Coordination normal. Psychiatric: Mood and Affect: Mood normal. Behavior: Behavior normal. MDM Medical Decision Making This 32-year-old female history of ADHD, adrenal insufficiency who presents with nausea vomiting diarrhea and dysuria since yesterday. Concern for adrenal crisis versus side effects from medication versus UTI versus other Amount and/or Complexity of Data Reviewed Independent Historian: Details: Patient is alone External Data Reviewed: labs, radiology, ECG and notes. Labs: ordered. Decision-making details documented in ED Course. Radiology: ordered. Decision-making details documented in ED Course. ECG/medicine tests: ordered. Decision-making details documented in ED Course. Risk Prescription drug management. Decision regarding hospitalization. ED Course as of 05/31/222024 Time: 05/23 1083 Value: Epithelial cells, squamous, ur(!): 21-50 Comment: Contaminated and nondiagnostic By: Dalila Cornejo MD Time: 05/24 427 Comment: Apparently the patient called 911 because she is reporting she is in so much pain and she says that she thinks she is going into adrenal crisis. Unfortunately the emergency department is very busy. She does apparently have an IVs I will order some medications for her pain and reported nausea. Per the RN who has been observing her throughout this in triage, the patient has not had any episodes of vomiting By: Dalila Cornejo MD Time: 05/23 0550 Value: Pulse(!): 126 Comment: Sinus tachycardia on the monitor By: Dalila Cornejo MD Time: 05/23 612 Value: WBC(!): 10.6 Comment: (Reviewed) By: Nina Faith MD Time: 05/23 612 Value: Hgb(!): 10.2 Comment: baseline By: Nina Faith MD Time: 05/23 06 Value: D-Dimer(!): 1,205 Comment: (Reviewed) By: Nina Faith MD Time: 05/23 133 Comment: EKG done at 5:[address] sinus tachycardia nonspecific ST T changes rate 132 By: Nina Faith MD Time: 05/23 1332 Comment: Counseled patient at length about leaving AMA at 6:22, 0716, 0825. Patient states she doesnot want to stay here because she is sick of being here we are not fixing her fast enough. Her daughter is [facility] and she wants to go to. I told her I was concerned she could be having an addisonian crisis I felt she needed to stay until we can tease out the details and ensure that she was safe. She eventually left AMA any while I was in another room. By: Nina Faith MD Final diagnoses: Nausea and vomiting, unspecified vomiting type Diarrhea, unspecified type Tachycardia Mass of lower outer quadrant of right breast - Needs further evaluation Liver mass - Needs further evaluation Nina Faith MD 05/23/221335 Nina Faith MD 05/31/222025 * Alpa Levi RN - 05/23/2022 2:46 AM CDT PT presents to ED with N/V/D/ and c/o pain on urination documented in this encounter Plan of Treatment Not on file documented as of this encounter Procedures Procedure Name Priority Date/Time Associated Diagnosis Comments ACTH Routine 05/23/2022 9:32 AM CDT CORTISOL Timed 05/23/2022 9:32 AM CDT ETHANOL Add-On 05/23/2022 9:32 AM CDT SODIUM, URINE, RANDOM Routine 05/23/2022 9:26 AM CDT POTASSIUM, URINE, RANDOM Routine 05/23/2022 9:26 AM CDT CHLORIDE, URINE, RANDOM Routine 05/23/2022 9:[address] CHEST PE ABDOMEN PELVIS W CONTRAST ED 05/23/2022 7:40 AM CDT SEPSIS LACTATE WITH REFLEX STAT 05/23/2022 6:56 AM CDT DRUGS OF ABUSE SCREEN, URINE WITHOUT CONFIRMATION STAT 05/23/2022 6:15 AM CDT INFLUENZA A/B, RSV, AND COVID-19 PCR Routine 05/23/2022 5:58 AM CDT D-DIMER, QUANTITATIVE STAT 05/23/2022 5:58 AM CDT ECG 12-LEAD STAT 05/23/2022 5:48 AM CDT EGFR STAT 05/23/2022 3:35 AM CDT DIFFERENTIAL AUTO STAT 05/23/2022 3:3 5 AM CDT THYROID FUNCTION CASCADE Routine 05/23/2022 3:35 AM CDT URINALYSIS AND REFLEX TO MICROSCOPIC AND CULTURE STAT 05/23/2022 3:35 AM CDT CBC WITH AUTO DIFFERENTIAL STAT 05/23/2022 3:35 AM CDT URINALYSIS, MICROSCOPIC ONLY STAT 05/23/2022 3:35 AM CDT HCG, BLOOD, QUANTITATIVE STAT 05/23/2022 3:35 AM CDT LIPASE STAT 05/23/2022 3:35 AM CDT COMPREHENSIVE METABOLIC PANEL STAT 05/23/2022 3:35 AM CDT documented in this encounter Results * Ethanol (05/23/2022 9:32 AM CDT) Ethanol <10 <=10 mg/dL [facility]) Comment: Interpretive Data Legal limit of intoxication > or = 80 mg/dL Levels > or = 400 mg/dL are potentially TOXIC. Current interpretive data was last revised on 2018. Blood 05/23/2022 9:32 AM CDT 05/23/2022 9:39 AM CDT us Nina Faith MD LAB BLOOD ORDERABLES Briana l Result ARPITA MARTIN ([place]) 1 [facility] Department [place] [address] * ACTH (05/23/2022 9:32 AM CDT) ACTH 35.2 7.0 - 63.0 pg/mL ARPITA OWUS[facility]) Comment:Testing performed by : [facility], [address] [facility], [place]., [address] Blood 05/23/2022 9:32 AM CDT 05/23/2022 12:18 PM CDT Nina Faith MD LAB BLOOD ORDERABLES Briana l Result Performing Organization Address City/[facility] Co de Phone Number ARPITA VERONICA ([place]) 1 [facility] Department [place] [address] * (ABNORMAL) Cortisol (05/23/2022 9:32 AM CDT) Cortisol 109.0(H) 4.8 - 19.5 mcg/dl [facility] MARTIN ([place]) Comment: Interpretive Data Normal Range: ??4.8 - 19.5 mcg/dL; ??Evening: ??Half of morning value. ?? This analyte undergoes marked diurnal variation. ??Ranges indicated apply to morning specimens. ?? Current interpretive data was last revised 2018. Testing performed by: [facility], [address] [place] [address]., [id number] Blood 05/23/2022 9:32 AM CDT 05/23/2022 11:44 AM CDT Nina Faith MD LAB BLOOD ORDERABLES Briana l Result Performing Organization Address [facility] Co de Phone Number ARPITA MARTIN ([place]) 1 [facility] Department [place] [address] * Chloride, urine, random (05/23/2022 9:26 AM CDT) Chloride, ur 135 mmol/L [facility] MARTIN ([place]) Comment: Interpretive Data No reference range established. Current interpretive data was last revised 2018. Urine (Urine, Clean Catch) 05/23/2022 9:26 AM CDT 05/23/2022 9:31 AM CDT Narrative [facility] MARTIN ([place]) - 05/23/2022 10:09 AM CDT No normal range Nina Faith MD LAB URINE ORDERABLES Briana l Result Performing Organization Address City/[facility]/ZIP Co de Phone Number ARPITA MARTIN ([place]) [address] [place] [address] * Potassium, urine, random (05/23/2022 9:26 AM CDT) Potassium conc, ur 137.1 mmol/L [facility] ([place]) Comment: Interpretive Data No reference range established. Current interpretive data was last revised 2018. Urine (Urine, Clean Catch) 05/23/2022 9:26 AM CDT 05/23/2022 9:31 AM CDT Nina Faith MD LAB URINE ORDERABLES Briana l Result ARPITA MARTIN ([place]) [address] [place] [address] * Sodium, urine, random (05/23/2022 9:26 AM CDT) Sodium, ur 160 mmol/L [facility] ([place]) Comment: Interpretive Data No reference range established. Current interpretive data was last revised 2018. Urine (Urine, Clean Catch) 05/23/2022 9:26 AM CDT 05/23/2022 9:31 AM CDT Narrative [facility] ([place]) - 05/23/2022 10:09 AM CDT No normal range Nina Faith MD LAB URINE ORDERABLES Briana l Result ARPITA MARTIN ([place]) [address] [place] [address] * CT Chest PE (CTA) Abdomen Pelvis W Contrast (05/23/2022 7:40 AM CDT) Anatomical Region Laterality Modality Body N/A Computed Tomogra phy 05/23/2022 7:56 AM CDT Narrative 05/23/2022 8:14 AM CDT EXAM DESCRIPTION: ?? CT CHEST PE (CTA) ABDOMEN PELVIS W CONTRAST REASON FOR STUDY: ?? tachy h/o lupus ?? Nausea, vomiting, and diarrhea started yesterday. Pt states she has painful urination. Pt is tachy, unknown cause. Elevated d-dimer. Pt states she has lupus. ? TECHNIQUE: CT angiogram of the chest with routine abdomen and pelvis performed with intravenous and ?? without ??oral contrast using helical scanning technique with dynamic intravenous contrast injection. Reconstructed coronal and sagittal MPR images reviewed. All images stored on PACS. ? 3D MIP images of the chest rendered on scanning unit and reviewed at time of interpretation. Automated exposure control was used as a dose optimization technique for this examination. CONTRAST TYPE/DOSE: ?? 100mL of IOVERSOL 350 MG IODINE/ML INTRAVENOUS SYRINGE ?? injected via ?? intravenous COMPARISON: ?? Chest CT 06/22/2019. ??CT abdomen pelvis 07/15/2019. ??More recent chest x-rays including 04/23/2022. REFERENCE: Per ACR white paper recommendations, unless otherwise specified no follow-up imaging is recommended for incidental renal and adrenal lesions per consensus recommendations based on imaging criteria. Further lab evaluation could be pursued based on clinical findings. FINDINGS: CHEST CHEST VASCULATURE: ?? Contrast opacification of the pulmonary arteries is adequate for diagnostic purposes. ??Beam hardening artifact and small vessel size result in diminished sensitivity in the small branches. ??No evidence of pulmonary embolism. LUNGS: ?? No focal consolidation. ??Large airways are clear. ??No suspicious pulmonary mass or nodule. ??No underlying structural lung disease. PLEURA: ?? No effusion. No pneumothorax. MEDIASTINUM/KALA: ?? No mediastinal or hilar lymphadenopathy. ??No mediastinal mass. ??Unremarkable included portions of the thyroid. HEART: ?? Heart size is normal with no pericardial effusion. ?? Nonaneurysmal thoracic aorta with normal variant arch branching pattern, with a common trunk supplying the brachiocephalic and left common carotid arteries. AXILLA: ?? No adenopathy. CHEST WALL: ?? Inferolaterally in the right breast, there is a relatively well-circumscribed, ovoid structure measuring 2 cm (series 10, image 15, series 6, image 139). HARDWARE/LINES/TUBES: ?? None. MUSCULOSKELETAL CHEST: ?? No acute fracture. ??No suspicious lytic or sclerotic bone lesion. ABDOMEN/PELVIS LIVER: ?? Normal size and contour. ??Patent and normally enhancing portal venous system. ??High in the liver dome, there is a tiny subcentimeter focus of hyperenhancement (series 12, image 14), with enhancement which appears incomplete and peripheral on the chest images (series 6 images 167-170), and which is unchanged from 2020, probably reflecting a small hemangioma. ??No new liver lesion. GALLBLADDER: ?? Normal. BILE DUCTS: ?? No intrahepatic or extrahepatic biliary dilation. SPLEEN: ?? Normal size. ??No focal lesions. PANCREAS: ?? Normal parenchymal bulk, morphology, and enhancement pattern. No duct dilation. No inflammatory change. ?? ADRENALS: ?? Normal. KIDNEYS/URINARY TRACT: ?? Symmetric and normal renal enhancement pattern. ??No focal lesions. ??No hydronephrosis or hydroureter. ??No stones are seen. ? Urinary bladder is unremarkable. GI: ?? Stomach appears normal. ??Small bowel is not obstructed. ??Appendix is not visualized, and there is surgical change at the cecal apex suggesting prior appendectomy. ??Colon is mostly decompressed without significant abnormality seen. PERITONEUM: ?? Trace pelvic free fluid is probably within normal physiologic limits in a young woman. ??No free air. RETROPERITONEUM: ?? No mass or adenopathy. REPRODUCTIVE: ?? Abnormal appearance of the uterus. ??The endometrial canal is within normal physiologic limits. ??However, peripheral to the endometrial canal, there is increased low attenuation material. ??There appears to be a rim enhancing structure at the tip of the fundus measuring approximally 1.4 cm (series 12, image 116). ??3 fluid density structures in the left adnexa, the largest measuring 1.5 cm, are most likely follicles. VASCULATURE ABDOMEN: ?? No abdominal aortic aneurysm. MUSCULOSKELETAL ABDOMEN PELVIS: ?? No acute fracture. ??No suspicious lytic or sclerotic bone lesion. OTHER: ?? No significant abnormality. IMPRESSION: ?? 1. ?? No evidence of pulmonary embolism. ??No other acute process in the chest. 2. ?? Abnormal appearance of the uterus with low-attenuation expansion of the myometrium. ??Findings are of uncertain etiology. ??Clinical and laboratory correlation is recommended. ??Further evaluation with pelvic ultrasound may be helpful. 3. ?? Probable functional follicles in the left ovary. 4. ?? Trace pelvic free fluid, probably within normal physiologic limits. 5. ?? No acute process in the abdomen and pelvis separate from the reproductive organs. 6. ?? 2 cm ovoid masslike structure in the lower outer right breast. ??Recommend outpatient referral to a breast center for dedicated imaging. 7. ?? Subcentimeter hyperenhancing focus in the liver dome is stable since 2019 and probably reflects a small benign cavernous hemangioma. THIS IS AN ELECTRONICALLY VERIFIED FINAL REPORT 05/23/2022 8:14 AM - Electronically signed by ??David Dawson M.D. BC: CARLOS D: ??05/23/2022 8:14 AM T: ??05/23/2022 8:14 AM Report ID: [id number] Reading Location: ??[id number] Procedure Note David Dawson MD - 05/23/2022 EXAM DESCRIPTION: CT CHEST PE (CTA) ABDOMEN PELVIS W CONTRAST REASON FOR STUDY: tachy h/o lupus Nausea, vomiting, and diarrhea started yesterday. Pt states she haspainful urination. Pt is tachy, unknown cause. Elevated d-dimer. Pt states she has lupus. TECHNIQUE: CT angiogram of the chest with routine abdomen and pelvisperformed with intravenous and without oral contrast using helical scanningtechnique with dynamic intravenous contrast injection. Reconstructed coronal and sagittal MPR images reviewed. All images stored on PACS. 3D MIP imagesof the chest rendered on scanning unit and reviewed at time ofinterpretation. Automated exposure control was used as a dose optimization technique forthis examination. CONTRAST TYPE/DOSE: 100mL of IOVERSOL 350 MG IODINE/ML INTRAVENOUSSYRINGE injected via intravenous COMPARISON: Chest CT 06/22/2019. CT abdomen pelvis 07/15/2019. Morerecent chest x-rays including 04/23/2022. REFERENCE: Per ACR white paper recommendations, unless otherwise specifiedno follow-up imaging is recommended for incidental renal and adrenal lesionsper consensus recommendations based on imaging criteria. Further labevaluation could be pursued based on clinical findings. FINDINGS: CHEST CHEST VASCULATURE: Contrast opacification of the pulmonary arteries is adequate for diagnostic purposes. Beam hardening artifact and smallvessel size result in diminished sensitivity in the small branches. No evidenceof pulmonary embolism. LUNGS: No focal consolidation. Large airways are clear. No suspicious pulmonary mass or nodule. No underlying structural lung disease. PLEURA: No effusion. No pneumothorax. MEDIASTINUM/KALA: No mediastinal or hilar lymphadenopathy. Nomediastinal mass. Unremarkable included portions of the thyroid. HEART: Heart size is normal with no pericardial effusion.Nonaneurysmal thoracic aorta with normal variant arch branching pattern, with a commontrunk supplying the brachiocephalic and left common carotid arteries. AXILLA: No adenopathy. CHEST WALL: Inferolaterally in the right breast, there is a relatively well-circumscribed, ovoid structure measuring 2 cm (series 10, image 15, series 6, image 139). HARDWARE/LINES/TUBES: None. MUSCULOSKELETAL CHEST: No acute fracture. No suspicious lytic orsclerotic bone lesion. ABDOMEN/PELVIS LIVER: Normal size and contour. Patent and normally enhancing portalvenous system. High in the liver dome, there is a tiny subcentimeter focus of hyperenhancement (series 12, image 14), with enhancement which appears incomplete and peripheral on the chest images (series 6 images 167-170),and which is unchanged from 2020, probably reflecting a small hemangioma. Nonew liver lesion. GALLBLADDER: Normal. BILE DUCTS: No intrahepatic or extrahepatic biliary dilation. SPLEEN: Normal size. No focal lesions. PANCREAS: Normal parenchymal bulk, morphology, and enhancement pattern.No duct dilation. No inflammatory change. ADRENALS: Normal. KIDNEYS/URINARY TRACT: Symmetric and normal renal enhancement pattern.No focal lesions. No hydronephrosis or hydroureter. No stones are seen. Urinary bladder is unremarkable. GI: Stomach appears normal. Small bowel is not obstructed. Appendix isnot visualized, and there is surgical change at the cecal apex suggestingprior appendectomy. Colon is mostly decompressed without significantabnormality seen. PERITONEUM: Trace pelvic free fluid is probably within normalphysiologic limits in a young woman. No free air. RETROPERITONEUM: No mass or adenopathy. REPRODUCTIVE: Abnormal appearance of the uterus. The endometrial canalis within normal physiologic limits. However, peripheral to the endometrial canal, there is increased low attenuation material. There appears to be arim enhancing structure at the tip of the fundus measuring approximally 1.4 cm (series 12, image 116). 3 fluid density structures in the left adnexa,the largest measuring 1.5 cm, are most likely follicles. VASCULATURE ABDOMEN: No abdominal aortic aneurysm. MUSCULOSKELETAL ABDOMEN PELVIS: No acute fracture. No suspicious lyticor sclerotic bone lesion. OTHER: No significant abnormality. IMPRESSION: 1. No evidence of pulmonary embolism. No other acute process in thechest. 2. Abnormal appearance of the uterus with low-attenuation expansion ofthe myometrium. Findings are of uncertain etiology. Clinical and laboratory correlation is recommended. Further evaluation with pelvic ultrasound maybe helpful. 3. Probable functional follicles in the left ovary. 4. Trace pelvic free fluid, probably within normal physiologic limits. 5. No acute process in the abdomen and pelvis separate from thereproductive organs. 6. 2 cm ovoid masslike structure in the lower outer right breast.Recommend outpatient referral to a breast center for dedicated imaging. 7. Subcentimeter hyperenhancing focus in the liver dome is stable [id number] and probably reflects a small benign cavernous hemangioma. THIS IS AN ELECTRONICALLY VERIFIED FINAL REPORT 05/23/2022 8:14 AM - Electronically signed by David Dawson M.D. BC: BC Report ID: [id number] Reading Location: [id number] Nina Faith MD IMG CT PROCEDURES Final R esult * Sepsis Lactate w/ Reflex (05/23/2022 6:56 AM CDT) Sepsis Lactate 0.8 0.7 - 2.0 mmol/L [facility] ([place]) Blood 05/23/2022 6:56 AM CDT 05/23/2022 6:59 AM CDT Nina Faith MD LAB BLOOD ORDERABLES Briana l Result [facility] MARTIN ([place]) 1 [facility] Department [place] [address] * Drugs of Abuse Screen, Urine without Confirmation (05/23/2022 6:15 AM CDT) [facility] Amphetamine, ur Not Detected CutOff 500ng/mL [facility] ([place]) Comment: Interpretive Data - Amphetamines: ??Samples containing greater than 500 ng/mL d-methamphetamine ??or other cross-reacting amphetamine compounds are reported as positive. ??Amphetamine immunoassays are subject to significant false positive rates due to cross-reactivity of non-amphetamine drugs. Current Interpretive Data was last reviewed 2018. Barbiturates, ur Not Detected CutOff 200ng/mL [facility] ([place]) Comment: Interpretive Data - Barbiturates: ??Samples containing greater than 200 ng/mL secobarbital or other cross-reacting barbiturate compounds are reported as positive. ??False positive and false negative results are possible. Current Interpretive Data was last reviewed 2018. Benzodiazepines, ur Not Detected CutOff 100ng/mL [facility] ([place]) Comment: Interpretive Data - Benzodiazepines: ??Samples containing greater than 100 ng/mL nordiazepam or other cross-reacting compounds are reported as positive. ?? False positive and false negative results are possible. ?? Current Interpretive Data was last reviewed 2018. Cannabinoids, ur Not Detected CutOff 50 ng/mL [facility] ([place]) Comment: Interpretive Data - Cannabinoids: ??Samples containing greater than 50 ng/mL delta-9 THC -COOH or other cross-reacting compounds are reported as positive. ??False positive and false negative results are possible. ?? Current Interpretive Data was last reviewed 2018. Cocaine, ur Not Detected CutOff 150ng/mL [facility] ([place]) Comment: Interpretive Data - Cocaine: ??Samples containing greater than 150 ng/mL benzoylecgonine or other cross-reacting compounds are reported as positive. False positive and false negative results are possible. Current Interpretive Data was last reviewed 2018. Fentanyl, Ur Not Detected Cutoff 1 ng/mL [facility] ([place]) Comment: Interpretive Data - Fentanyls: ??Samples containing greater than 1 ng/mL fentanyl or other cross-reacting fentanyl compounds are reported as detected. ??False positive and false negative results are possible. Current Interpretive Data was last reviewed 2018. Methadone, ur Not Detected CutOff 300ng/mL [facility] ([place]) Comment: Interpretive Data - Methadone: ??Samples containing greater than 300 ng/mL d,l-methadone or other cross-reacting compounds are reported as positive. ??False positive and false negative results are possible. Current Interpretive Data was last reviewed 2018. Opiates, ur Not Detected CutOff 300ng/mL [facility] MARITN ([place]) Comment: Interpretive Data - Opiates: ??Samples containing greater than 300 ng/mL morphine or other cross-reacting compounds are reported as positive. ??False positive and false negative results are possible. Current Interpretive Data was last reviewed 2018. Oxycodone, ur Not Detected CutOff 100ng/mL [facility] ([place]) Comment: Interpretive Data - Oxycodone: ??Samples containing greater than 100 ng/mL oxycodone or other cross-reacting compounds are reported as positive. ??False positive and false negative results are possible. ?? Current Interpretive Data was last reviewed 2018. Phencyclidine, ur Not Detected CutOff 25 ng/mL [facility] ([place]) Comment: Interpretive Data - Phencyclidine: ??Samples containing greater than 25 ng/mL phencyclidine or other cross-reacting compounds are reported as positive. ??False positive and false negative results are possible. ?? Current Interpretive Data was last reviewed 2018. Urine Creatinine 331 mg/dL FRANCISCO MARTIN ([place]) Comment: Interpretive Data Urine Creatinine: < 10 mg/dL is extremely dilute = or > 10 but < 20 mg/dL is dilute = or > 20 mg/dL is normal Current Interpretive Data was last revised on 2017. Urine 05/23/2022 6:15 AM CDT 05/23/2022 6:18 AM CDT Narrative [facility] ([place]) - 05/23/2022 6:53 AM CDT Drug of Abuse screening is performed by immunoassay for medical purposes only. ??This is not to be used for Pain Management purposes. us Dalila Cornejo MD LAB URINE ORDERABLES Fin al Result [facility] MARTIN ([place]) 1 [facility] Department [place] [address] * Influenza A/B, RSV, and COVID-19 PCR Nasopharyngeal (05/23/2022 5:58 AM CDT) COVID-19 RNA Negative Negative [facility] ([place]) Influenza A RNA Negative Negative [facility] ([place] Influenza B RNA Negative Negative [facility] ([place]) RSV RNA Negative Negative [facility] ([place]) Comment: Interpretive data: This test is performed using the [employer] Xpert Xpress CoV-2/Flu/RSV plus assay. This is a multiplex, real-time reverse transcriptase PCR assay intended for the qualitative detection of nucleic acid from SARS-CoV-2, influenza A, influenza B, and respiratory syncytial virus. This assay has been reviewed by the FDA for Emergency Use Authorization (EUA). The performance characteristics have been verified by the performing laboratory. Results must be considered in the clinical context, and a negative result does not rule out infection. Interpretive Data last revised 2021. Nasopharyngeal 05/23/2022 5: 58 AM CDT 05/23/2022 6:05 AM CDT Narrative [facility] ([place]) - 05/23/2022 6:43 AM CDT Is the Patient experiencing symptoms consistent with COVID?->Unknown Reason for testing?->Bed placement or semi-private room Dalila Cornejo MD LAB MICROBIOLOGY - GENER AL ORDERABLES Final Result ARPITA BecerraR[facility]) 1 [facility] Department [place] [address] * (ABNORMAL) D-dimer, quantitative (05/23/2022 5:58 AM CDT) D-Dimer 1,205(H) <=499 ng/mL FEU [facility] VERONICA ([place]) Comment: Interpretive data FDA approved the D-dimer, in conjunction with a low or moderate pretest probability score, to exclude venous thromboembolic events (VTE) (PE and DVT) in outpatients when the D-dimer result is < 500 ng/ml FEU. ?? Evidence supports using an age-adjusted D-dimer cut-off for outpatients older than 50 (age x 10) to improve specificity without sacrificing sensitivity. Example: age 68, VTE cut-off 680 ng/ml FEU. References; Schouten HT et al. Brit Med J. 2013;346:f2492. Jimi WILLETT et al. Annals Int Med. 2015;163:701-11. Current interpretive data was last revised on 2019. Blood 05/23/2022 5:58 AM CDT 05/23/2022 6:05 AM CDT Dalila Cornejo MD LAB BLOOD ORDERABLES Fin al Result Performing Organization Address [facility] Co de Phone Number [facility] MARTIN ([place]) 1 [facility] Department [place] [address] * ECG 12 lead (05/23/2022 5:48 AM CDT) 05/23/2022 5:48 AM CDT Narrative [facility] - 05/23/2022 5:52 PM CDT Vent Rate: 132 bpm RR Interval: 454 msec OR Interval: 148 msec QRS Duration: 78 msec QT Interval: 332 msec QTC Interval: 410 msec P-R-T [place]: 52 - 28 - [address] \T\ T-WAVE ABNORMALITY ABNORMAL RHYTHM ECG Compared to prior EKG, heart rate has increased ST segment depressions are new Electronically Signed By: Tristan Edmondson MD us Dalila Cornejo MD ECG ORDERABLES Final Re sult Performing Organization Address [facility] de Phone Number [facility] [place] [facility] * eGFR (05/23/2022 3:35 AM CDT) eGFR 112 mL/min/1. 73 m2 [facility] MARTIN ([place]) Comment: Interpretive Data Reference Interval Normal ?>/= [...] interpretive data was last reviewed 2020. Blood 05/23/2022 3:35 AM CDT 05/23/2022 3:42 AM CDT us Nina Faith MD LAB BLOOD ORDERABLES Briana l Result [facility] ([place]) [address] [place] [address] [place] [address] * TSH reflex to free T4 (05/23/2022 3:35 AM CDT) TSH 1.81 0.30 - 4.20 mcIUnit/mL [facility] ([place]) Blood 05/23/2022 3:35 AM CDT 05/23/2022 4:45 AM CDT us Dalila Cornejo MD LAB BLOOD ORDERABLES Fin al Result Performing Organization Address City/[facility]/ZIP Co de Phone Number [facility] ([place]) 1 [facility] [place] [address] * hCG, blood, quantitative (05/23/2022 3:35 AM CDT) hCG, quant <5.0 0.0 - 5.0 IUnits/L [facility] ([place]) Comment: Interpretive Data Non- Female premenopausal: < or = 5.0 IUnits/L Men: < 5.0 IUnits/L Weeks of Gestation ? Reference Interval ?? 3 to 6 ? 5.8-31,795 IUnits/L ?? 7 to 10 ? 3,697-186,977 IUnits/L ??12 to 15 ?27,832- 70,791 IUnits/L ??16 to 18 ? 9,040- 58,179 IUnits/L The Teresa hCG Beta Quant assay procedure was used. Results from different manufacturers or methods may not be comparable. Serial testing should be performed using the same method. Current Interpretive Data was last revised on 2021. Blood 05/23/2022 3:35 AM CDT 05/23/2022 4:13 AM CDT us Dalila Cornejo MD LAB BLOOD ORDERABLES Fin al Result [facility]ITA [facility] ([place]) 1 [facility] Department [place] [address] * (ABNORMAL) Urinalysis, microscopic only (05/23/2022 3:35 AM CDT) WBC, ur 0-5 0 - 5 /HPF [facility] ([place]) RBC, ur 0-2 0 - 2 /HPF [facility] ([place]) Epithelial cells, squamous, ur 21-50(A) 0 - 5 /HPF [facility] ([place]) Bacteria, ur 2+(A) [facility] ([place]) Mucous, ur Present(A) [facility] A ([place]) Culture Reflex Comment Reflex conditions for urine culture (WBC >10) not met. [facility] ([place]) Urine 05/23/2022 3:35 AM CDT 05/23/2022 3:42 AM CDT Nina Faith MD LAB URINE ORDERABLES Briana helene Result [facility]ITA MARTIN ([place]) 1 [facility] Department [place] [address] * (ABNORMAL) Differential, auto (05/23/2022 3:35 AM CDT) Neutrophil abs 9.6(H) 1.7 - 6.5 K/cumm [facility] ([place]) Imm gran abs 0.0 0.0 - 0.1 K/cumm [facility] ([place]) Lymphocyte abs 0.5(L) 0.8 - 3.3 K/cumm [facility] ([place]) Monocyte abs 0.4 0.2 - 0.8 K/cumm [facility] ([place]) Eosinophil abs 0.1 0.0 - 0.5 K/cumm [facility] ([place]) Basophil abs 0.0 0.0 - 0.1 K/cumm [facility] ([place]) Neutrophil pct 90.9 % [facility] ([place]) Comment: Interpretive [...] was last revised on 2017. Lymphocyte pct 4.6 % [facility] ([place]) Comment: Interpretive Data Percent cell count reference ranges are not reported, since discordance with absolute values may lead to misinterpretation of CBC data. Current Interpretive Data was last revised on 2017. Monocyte pct 3.4 % [facility] ([place]) Comment: Interpretive Data Percent cell count reference ranges are not reported, since discordance with absolute values may lead to misinterpretation of CBC data. Current Interpretive Data was last revised on 2017. Eosinophil pct 0.7 % [facility] ([place]) Comment: Interpretive Data Percent cell count reference ranges are not reported, since discordance with absolute values may lead to misinterpretation of CBC data. Current Interpretive Data was last revised on 2017. Basophil pct 0.1 % [facility] ([place]) Comment: Interpretive Data Percent cell count reference ranges are not reported, since discordance with absolute values may lead to misinterpretation of CBC data. Current Interpretive Data was last revised on 2017. Blood 05/23/2022 3:35 AM CDT 05/23/2022 3:42 AM CDT us Nina Faith MD LAB BLOOD ORDERABLES Briana narayan Result [facility] ([place]) 1 [facility] Department [place] [address] * (ABNORMAL) Urinalysis reflex to microscopic and culture Urine (05/23/2022 3:35 AM CDT) Color, ur Yellow Yellow [facility] ([place]) Clarity, ur Turbid(A) Clear [facility] ([place]) Specific gravity, ur 1.032(H) 1.003 - 1.030 [facility] ([place]) pH, urine 6.5 [facility] ([place]) Protein, ur ql 2+(A) Negative [facility] ([place]) Glucose, ur ql Negative Negative [facility] ([place]) Ketones, ur Negative Negative [facility] ([place]) Bilirubin, ur Negative Negative [facility] ([place]) Blood, ur Negative Negative [facility] ([place]) Urobilinogen, ur <2.0 <2.0 mg/dL [facility] ([place]) Nitrite, ur Negative Negative [facility] ([place]) Leukocyte esterase, ur Negative Negative [facility] ([place]) UA reflex comment Reflex to microscopic UA will be performed. [facility] ([place]) Urine 05/23/2022 3:35 AM CDT 05/23/2022 3:42 AM CDT Narrative [facility] ([place]) - 05/23/2022 3:46 AM CDT ?? Urine pH is affected by diet, medications, systemic acid-base disturbances, and renal tubular function. ??pH may affect urinary stone formation. ??For example, urine pH below 6.0 may help reduce the tendency for calcium phosphate stones and pH greater than 6.0 may reduce the tendency for uric acid stone formation. Source: [facility] [place]. Last revised 03-08-2017 Nina Faith MD LAB MICROBIOLOGY - GENERA L ORDERABLES Final Result [facility] ([place]) [address] [place] [address] * Lipase (05/23/2022 3:35 AM CDT) Pathologist [facility] Lipase 39 10 - 99 Units/L [facility] ([place]) Blood (Blood, Venous) 05/23/2022 3:35 AM CDT 05/23/2022 3:42 AM CDT Nina Faith MD LAB BLOOD ORDERABLES Briana l Result Performing Organization Address City/[facility]/ZIP Co de Phone Number [facility] MARTIN ([place]) [address] [place] [address] * Comprehensive metabolic panel (05/23/2022 3:35 AM CDT) Sodium 141 135 - 145 mmol/L [facility] ([place]) Potassium, pl 3.3 3.3 - 4.9 mmol/L [facility] ([place]) Chloride 104 97 - 110 mmol/L [facility] ([place]) CO2 25 22 - 32 mmol/L [facility] ([place]) Anion gap 13 2 - 15 mmol/L [facility] ([place]) BUN 14 8 - 25 mg/dL [facility] ([place]) Creatinine 0.74 0.60 - 1.10 mg/dL [facility] ([place]) Glucose 130 70 - 199 mg/dL [facility] ([place]) Comment: Interpretive Data Fasting glucose [...] interpretive data was last revised 2022. Calcium 8.9 8.5 - 10.3 mg/dL [facility] ([place]) Bilirubin, total 0.4 0.1 - 1.2 mg/dL [facility] ([place]) Protein, pl 7.2 6.5 - 8.5 g/dL [facility] ([place]) Albumin 4.6 3.5 - 5.0 g/dL [facility] ([place]) Alk phos 48 40 - 130 Units/L [facility] ([place]) ALT 9 7 - 45 Units/L [facility] ([place]) AST 13 10 - 45 Units/L [facility] ([place]) Blood 05/23/2022 3:35 AM CDT 05/23/2022 3:42 AM CDT us Nina Faith MD LAB BLOOD ORDERABLES Briana narayan Result [facility] ([place]) 1 [facility] Department [place] [address] * (ABNORMAL) CBC with auto differential (05/23/2022 3:35 AM CDT) WBC 10.6(H) 3.8 - 9.9 K/cumm [facility] ([place]) Hgb 10.2(L) 11.9 - 15.5 g/dL [facility] ([place]) Hct 34.4(L) 35.6 - 45.5 % [facility] ([place]) Plt 286 150 - 400 K/cumm [facility] ([place]) MPV 9.7 9.1 - 12.3 fL [facility] ([place]) RBC 4.45 3.90 - 5.20 M/cumm [facility] ([place]) MCV 77.3(L) 81.3 - 96.4 fL [facility] ([place]) MCH 22.9(L) 27.1 - 33.3 pg [facility] ([place]) MCHC 29.7(L) 32.3 - 35.7 g/dL [facility] ([place]) RDW CV 18.4(H) 11.1 - 14.9 % [facility] ([place]) RDW SD 50.3(H) 35.7 - 48.1 fL [facility] ([place]) NRBC abs 0.00 0.00 - 0.01 K/cumm [facility] ([place]) Blood (Blood, Venous) 05/23/2022 3:35 AM CDT 05/23/2022 3:42 AM CDT Nina Faith MD LAB BLOOD ORDERABLES Briana narayan Result [facility] MARTIN ([place]) 1 [facility] Department of Laboratories [place], [place] [id number] documented in this encounter Visit Diagnoses Diagnosis Nausea and vomiting, unspecified vomiting type- Primary Nausea and vomiting, unspecified vomiting type Diarrhea, unspecified type Tachycardia Unspecified tachycardia Mass of lower outer quadrant of right breast Liver mass Unspecified disorder of liver documented in this encounter Admitting Diagnoses Diagnosis Nausea and vomiting, unspecified vomiting type documented in this encounter Administered Medications Inactive Administered Medications - up to 3 most recent administrations Medication Order MAR Action Action Date Dose Rate Site droperidoL (INAPSINE) injection 1.25 mg 1.25 mg, intravenous, Administer over 5 Minutes, Once, On Sun05/23/22 at 0429, For 1 dose Given 05/23/2022 4:38 AM CDT 1.25 mg hydrocortisone (Solu-CORTEF) preservative free injection 100 mg 100 mg, intravenous, Once, On Sun05/23/22 at 0830, For 1 dose, For adults rapid IV push administer over 30 seconds Given 05/23/2022 8:40 AM CDT 100 mg ioversoL (OPTIRAY 350) syringe 100 mL 100 mL, intravenous, Once in imaging, contrast, Starting on Sun05/23/22 at 0733, For 1 dose Contrast Given 05/23/2022 7:33 AM CDT 100 mL ketorolac (TORADOL) 15 mg/mL injection 15 mg 15 mg, intravenous, Once, On Sun05/23/22 at 0429, For 1 dose, For Adult IV push, administer over 15 seconds, Indications: PainIndications:Pain Given 05/23/2022 4:39 AM CDT 15 mg magnesium sulfate 2 g/50 mL in water (premix) 2 g 2 g, intravenous, Administer over 60 Minutes, Once, On Sun05/23/22 at 0537, For 1 dose New Bag 05/23/2022 6:31 AM CDT 2 g predniSONE (DELTASONE) tablet 5 mg 5 mg, oral, Once, On Sun05/23/22 at 0639, For 1 dose Given 05/23/2022 6:51 AM CDT 5 mg sodium chloride 0.9% bolus 1,000 mL 1,000 mL, intravenous, at 1,000 mL/hr, Administer over 1 Hours, Once, On Sun05/23/22 at 0429, For 1 dose New Bag 05/23/2022 5:23 AM CDT 1,000 mL 1000 mL/hr sodium chloride 0.9% bolus 1,000 mL 1,000 mL, intravenous, at 1,000 mL/hr, Administer over 1 Hours, Once, On Sun05/23/22 at 0806, For 1 dose New Bag 05/23/2022 8:40 AM CDT 1,000 mL 1000 mL/hr documented in this encounter Active and Recently Administered Medications Times are shown in CDT. Scheduled Medication Order 05/21/2022 05/22/2022 05/23/2022 droperidoL (INAPSINE) injection 1.25 mg (COMPLETED) 1.25 mg, intravenous, Administer over 5 Minutes, Once, On Sun05/23/22 at 0429, For 1 dose 0438 (Given - Provid er: Eva Vance RN) hydrocortisone (Solu-CORTEF) preservative free injection 100 mg (COMPLETED) 100 mg, intravenous, Once, On Sun05/23/22 at 0830, For 1 dose, For adults rapid IV push administer over 30 seconds 0840 (Given - Provid er: Humble Resendiz RN) ketorolac (TORADOL) 15 mg/mL injection 15 mg (COMPLETED) 15 mg, intravenous, Once, On Sun05/23/22 at 0429, For 1 dose, For Adult IV push, administer over 15 seconds, Indications: Pain 0439 (Given - Provid er: Eva Vance RN) magnesium sulfate 2 g/50 mL in water (premix) 2 g (COMPLETED) 2 g, intravenous, Administer over 60 Minutes, Once, On Sun05/23/22 at 0537, For 1 dose 0631 (New Bag - Prov ider: Eva Vance RN)0731 (Stopped - Provider: Humble Resendiz RN) predniSONE (DELTASONE) tablet 5 mg (COMPLETED) 5 mg, oral, Once, On Sun05/23/22 at 0639, For 1 dose 0651 (Given - Provid er: Humble Resendiz RN) sodium chloride 0.9% bolus 1,000 mL (COMPLETED) 1,000 mL, intravenous, at 1,000 mL/hr, Administer over 1 Hours, Once, On Sun05/23/22 at 0429, For 1 dose 0523 (New Bag - Prov ider: Eva Vance RN)0622 (Stopped - Provider: Eva Vance RN) sodium chloride 0.9% bolus 1,000 mL (COMPLETED) 1,000 mL, intravenous, at 1,000 mL/hr, Administer over 1 Hours, Once, On Sun05/23/22 at 0806, For 1 dose 0840 (New Bag - Prov ider: Humble Resendiz RN)1029 (Stopped - Provider: Humble Resendiz RN) PRN Medication Order 05/21/2022 05/22/2022 05/23/2022 ioversoL (OPTIRAY 350) syringe 100 mL (COMPLETED) 100 mL, intravenous, Once in imaging, contrast, Starting on Sun05/23/22 at 0733, For 1 dose 0733 (Contrast Given - Provider: Мария Villalpando, RT) documented in this encounter Orders Medications Ordered That Omer ht Not Have Been Administered Count Last Ordered Date First Ordered Date dexAMETHasone (JANADRON) 4 m g/mL injection 6 mg 1 05/23/2022 Nursing Count Last Ordered Date First Orde red Date ED NURSING ORDER 1 05/23/2022 MISCELLANEOUS NURSING CARE ORDER (SPECIFY) 1 05/23/2022 PULSE OXIMETRY - RN 1 05/23/2022 IV Count Last Ordered Date First Orde red Date SALINE LOCK IV 1 05/23/2022 Admission Count Last Ordered Date First Orde red Date ADMIT TO INPATIENT 1 05/23/2022 documented in this encounter Additional Health Concerns Infection Onset Date Last Indicated Resolved Time COVID: Suspected 05/23/2022 05/23/2022 05/23/2022 6:45 AM CDT documented as of this encounter Care Teams [place] Relationship Specialty [place] [id number] [address] [address] PCP - General 07/04/19 [place] [address] [address] [place] [id number] 11/16/18 Ernie Shaw MD [address] [place] [address] [address] [place] [address] [employer] Obstetrics and Gynecology 06/10/20 documented as of this encounter
--- OUTSIDE RECORDS SUMMARY | 2024-02-24 19:58 | XMS_ITS | Encounter Summary ---
Author Organization [facility] Address [address] [place] [address] Phone Care Team Providers Care Clinical Pharmacologist Name Role Phone Huseyin Dangelo MD Unavailable [phone] Brian Mon MD Primary Care Provider + Ernie Shaw MD Unavailable [phone] Encounter Details Date Type Department Care Team (Late st Contact Info) Description 11/09/2023 Orders Only [facility] Rheumatology [address] Medicine 5th [place] [address] [place] [address] Nallely Griffiths, MARKETING ACCOUNT EXECUTIVE Systemic lupus erythematosus, unspecified SLE type, unspecified organ involvement status (HCC) (Primary Dx) Social History Tobacco Use [...] and Family Not on file 01/01/2021 Attends Hinduism Services Not on file 01/01 Active Member [...] place to sleep or slept in a halfway (including now)? No 01/01/2021 Arcad[place] Depression Scale Answer Date Recorded [place] Depression Scale Total 11 01/11/2021 The thought [...] Priority Associated Diagnoses Orde r Schedule CBC with auto differential Lab Routine Systemic lupus erythematosus, unspecified SLE type, unspecified organ involvement status (HCC) Expected: 11/09/2023, Expires: 05/08/2024 Comprehensive metabolic panel Lab Routine Systemic lupus erythematosus, unspecified SLE type, unspecified organ involvement status (HCC) Expected: 11/09/2023, Expires: 11/08/2024 Erythrocyte sedimentation rate Lab Routine Systemic lupus erythematosus, unspecified SLE type, unspecified organ involvement status (HCC) Expected: 11/09/2023, Expires: 11/08/2024 CRP (acute phase) Lab Routine Systemic lupus erythematosus, unspecified SLE type, unspecified organ involvement status (HCC) Expected: 11/09/2023, Expires: 05/08/2024 Anti-double stranded DNA abs Lab Routine Systemic lupus erythematosus, unspecified SLE type, unspecified organ involvement status (HCC) Expected: 11/09/2023, Expires: 11/08/2024 C3 complement Lab Routine Systemic lupus erythematosus, unspecified SLE type, unspecified organ involvement status (HCC) Expected: 11/09/2023, Expires: 11/08/2024 C4 complement Lab Routine Systemic lupus erythematosus, unspecified SLE type, unspecified organ involvement status (HCC) Expected: 11/09/2023, Expires: 05/08/2024 Urinalysis reflex to microscopic and culture Urine Microbiology Routine Systemic lupus erythematosus, unspecified SLE type, unspecified organ involvement status (HCC) Expected: 11/09/2023, Expires: 11/08/2024 Protein / creatinine ratio, urine, random Lab Routine Systemic lupus erythematosus, unspecified SLE type, unspecified organ involvement status (HCC) Expected: 11/09/2023, Expires: 11/08/2024 documented as of this encounter Visit Diagnoses Diagnosis Systemic lupus erythematosus, unspecified SLE type, unspecified organ involvement status (HCC)- Primary documented in this encounter Care Teams Clinical Pharmacologist Relationship Specialty [place] [address] [address] [place] [address] PCP - General 07/04/19 [place] [address] [address] [place] [address] 11/16/18 Ernie Shaw MD [address] [place] [address] [address] [place] [address] Sewing Room Supervisor Obstetrics and Gynecology 06/10/20 documented as of this encounter
--- OUTSIDE RECORDS SUMMARY | 2024-02-24 19:58 | XMS_ITS | Encounter Summary ---
Author Organization [facility] Address [address] [place] [address] Phone Care Team Providers Care Sugar House Supervisor Name Role Phone Huseyin Dangelo MD Unavailable [phone] Brian Mon MD Primary Care Provider + Ernie Shaw MD Unavailable [phone] Encounter Details Date Type Department Care Team (Late st Contact Info) Description 10/26/2022 4:00 PM CDT Lab [facility] Endocrinology Metabolism and Lipid [address] 5th [place] [address] [place] [address] Other systemic lupus erythematosus with other organ involvement (HCC) Social History Tobacco Use Types Packs/Day [...] and Family Not on file 01/01/2021 Attends Protestant Services Not on file 01/01 Active Member [...] place to sleep or slept in a mcc (including now)? No 01/01/2021 Reubens Depression Scale Answer Date Recorded Reubens Depression Scale Total 11 01/11/2021 The thought [...] Associated Diagnosis Comments CBC WITH AUTO DIFFERENTIAL Routine 10/26/2022 3:50 PM CDT Other systemic lupus erythematosus with other organ involvement (HCC) CRP (ACUTE PHASE) Routine 10/26/2022 3:5 0 PM CDT Other systemic lupus erythematosus with other organ involvement (HCC) COMPREHENSIVE METABOLIC PANEL Routine 10/26/2022 3:50 PM CDT Other systemic lupus erythematosus with other organ involvement (HCC) documented in this encounter Results * CRP (acute phase) (10/26/2022 3:50 PM CDT) C-Reactive Protein, Acute 4.0 <5.0 mg/L [facility] Blood 10/26/2022 3:50 PM CDT 10/26/2022 4:05 PM CDT Carolina Delarosa MD LAB BLOOD ORDERABLES Final Result [facility] * (ABNORMAL) Comprehensive metabolic panel (10/26/2022 3:50 [...] [facility] * (ABNORMAL) [...] BLOOD ORDERABLES Final Result Performing Organization Address City/State/[facility] Co de Phone Number [facility] documented in this encounter Visit Diagnoses Diagnosis Other systemic lupus erythematosus with other organ involvement (HCC) documented in this encounter Care Teams Sugar House Supervisor Relationship Specialty [place] [address] [address] [facility] [place] [address] PCP - General 07/04/19 [place] [address] [address] [place] [address] 11/16/18 Ernie Shaw MD [address] [place] [address] [address] [place] [address] Journeyman Electrician Pv Installer Obstetrics and Gynecology 06/10/20 documented as of this encounter
--- OUTSIDE RECORDS SUMMARY | 2024-02-24 19:58 | XMS_ITS | Encounter Summary ---
Author Organization [facility] Healthcare Address [address] [place] [address] Care Team Providers Care Textbook Associate Name Role Phone Huseyin Dangelo MD Unavailable [phone] Brian Mon MD Primary Care Provider + Ernie Shaw MD Unavailable [phone] Encounter Details Date Type Department Care Team (Latest Contact Info) Description 05/23/2022 2:25 AM CDT - 05/23/2022 11:59 PM CDT Hospital Encounter [facility] Emergency, Room R Discharge Disposition: Discharge to home or self [...] in a half-way (including now)? No 01/01/2021 Tracy Depression Scale Answer Date Recorded Tracy Depression Scale Total 11 01/11/2021 The thought [...] documented as of this encounter Care Teams Textbook Associate Relationship Specialty [place] [address] [address] [place] [place] [place] [address] PCP - General 07/04/19 [place] [address] [address] [place] [address] 11/16/18 Ernie Shaw MD [address] [facility] [address] [place] [address] Absorption And Adsorption Engineer Obstetrics and Gynecology 06/10/20 documented as of this encounter
--- OUTSIDE RECORDS SUMMARY | 2024-02-24 19:59 | XMS_ITS | Encounter Summary ---
Author Organization [facility] Healthcare Address [address] [place] [address] Care Team Providers Care Cw Operator Name Role Phone Huseyin Dangelo MD Unavailable [phone] Brian Mon MD Primary Care Provider + Ernie Shaw MD Unavailable [phone] Encounter Details Date Type Department Care Team (Latest Contact Info) Description 03/16/2022 4:30 PM PHARMACIST TECHNICIAN - 03/16/2022 11:59 PM PHARMACIST TECHNICIAN Hospital Encounter [address] [address] Lupus (CMS/HCC) (HCC) Discharge Disposition: Discharge to home or [...] place to sleep or slept in a group home (including now)? No 01/01/2021 [place] Depression Scale Answer Date Recorded [place] Depression Scale Total 11 01/11/2021 The thought [...] this encounter Medications at Time of Discharge sertraline (ZOLOFT) 25 mg tablet Take 1 tablet (25 mg total) by mouth daily 08/21/2021 valACYclovir (VALTREX) 500 mg tablet 03/09/2021 fluconazole (DIFLUCAN) 150 mg tablet Take 1 tablet daily for 2 days. 2 tablet 07/25/2021 3 hydrOXYchloroQUINE (PLAQUENIL) 200 mg tabletIndications:S ystemic Lupus Erythematosus Take 2 tablets (400 mg total) by mouth daily 60 tablet 1 12/30/2021 3 predniSONE (DELTASONE) 5 mg tablet Take 1 tablet (5 mg) by mouth daily 90 tablet 03/27/2022 3 documented as of this encounter Discharge Disposition Disposition Code Departure Means Destination Discharge to home or self care documented in this encounter Plan of Treatment Not on file documented as of this encounter Procedures Procedure Name Priority Date/Time Associated Diagnosis Comments ANTI-DOUBLE STRANDED DNA ANTIBODIES Routine 03/16/2022 4:30 PM PHARMACIST TECHNICIAN Lupus (CMS/HCC) (HCC) C4 COMPLEMENT Routine 03/16/2022 4:30 PM PHARMACIST TECHNICIAN Lupus (CMS/HCC) (HCC) URINALYSIS AND REFLEX TO MICROSCOPIC AND CULTURE Routine 03/16/2022 4:30 PM PHARMACIST TECHNICIAN Lupus (CMS/HCC) (HCC) PROTEIN / CREATININE RATIO, URINE, RANDOM Routine 03/16/2022 4:30 PM PHARMACIST TECHNICIAN Lupus (CMS/HCC) (HCC) URINALYSIS, MICROSCOPIC ONLY Routine 03/16/2022 4:30 PM PHARMACIST TECHNICIAN Lupus (CMS/HCC) (HCC) ERYTHROCYTE SEDIMENTATION RATE Routine 03/16/2022 4:30 PM PHARMACIST TECHNICIAN Lupus (CMS/HCC) (HCC) C3 COMPLEMENT Routine 03/16/2022 4:30 PM PHARMACIST TECHNICIAN Lupus (CMS/HCC) (HCC) CRP (ACUTE PHASE) Routine 03/16/2022 4:3 0 PM PHARMACIST TECHNICIAN Lupus (CMS/HCC) (HCC) documented in this encounter Results * (ABNORMAL) Urinalysis, microscopic only (03/16/2022 4:30 PM PHARMACIST TECHNICIAN) WBC, ur 0-5 0 - 5 /HPF [facility] RBC, ur 0-2 0 - 2 /HPF [facility] Epithelial cells, squamous, ur 21-50(A) 0 - 5 /HPF [facility] Comment:Suggestive of contam ination. Consider recollection by clean catch. Bacteria, ur 1+(A) [facility] Mucous, ur Present(A) [facility] Culture Reflex Comment Reflex conditions for urine culture (WBC >10) not met. [facility] Urine 03/16/2022 4:30 PM PHARMACIST TECHNICIAN 03/16/2022 4:57 PM PHARMACIST TECHNICIAN Carolina Delarosa MD LAB URINE ORDERABLES Final Result Performing Organization Address City/[facility] Co de Phone Number [facility] [place] [address] * Protein / creatinine ratio, urine, random (03/16/2022 4:30 PM PHARMACIST TECHNICIAN) Pathologist [facility] Protein, ur, quant 19.1 mg/dL [facility] Comment: Interpretive Data No reference range established. Current interpretive data was last revised 2018. Creatinine Ur 218.3 mg/dL [facility] Comment: Interpretive Data No reference range established. Current interpretive data was last revised 2018. Protein/creatinin e ratio 87.5 0.0 - 180.0 mg/g CR [facility] Urine 03/16/2022 4:30 PM PHARMACIST TECHNICIAN 03/16/2022 4:57 PM PHARMACIST TECHNICIAN Carolina Delarosa MD LAB URINE ORDERABLES Final Result Performing Organization Address [facility]/ZIP Co de Phone Number [facility] [place] [address] * C4 complement (03/16/2022 4:30 PM PHARMACIST TECHNICIAN) Complement C4 19.8 10.0 - 40.0 mg/dL [facility] Blood 03/16/2022 4:30 PM PHARMACIST TECHNICIAN 03/16/2022 4:57 PM PHARMACIST TECHNICIAN Carolina Delarosa MD LAB BLOOD ORDERABLES Final Result [facility] [place] [address] * (ABNORMAL) Urinalysis reflex to microscopic and culture Urine (03/16/2022 4:30 PM PHARMACIST TECHNICIAN) Color, ur Yellow Yellow [facility] Clarity, ur Cloudy(A) Clear [facility] Specific gravity, ur 1.029 1.003 - 1.030 [facility] pH, urine 5.5 [facility] Protein, ur ql 1+(A) Negative [facility] Glucose, ur ql Negative Negative [facility] Ketones, ur Negative Negative [facility] Bilirubin, ur Negative Negative [facility] Blood, ur Negative Negative [facility] Urobilinogen, ur <2.0 <2.0 mg/dL [facility] Nitrite, ur Negative Negative [facility] Leukocyte esterase, ur Trace(A) Negative [facility] UA reflex comment Reflex to microscopic UA will be performed. [facility] Urine 03/16/2022 4:30 PM PHARMACIST TECHNICIAN 03/16/2022 4:57 PM PHARMACIST TECHNICIAN Narrative [facility] - 03/16/2022 5:15 PM PHARMACIST TECHNICIAN ?? Urine pH is affected by diet, medications, systemic acid-base disturbances, and renal tubular function. ??pH may affect urinary stone formation. ??For example, urine pH below 6.0 may help reduce the tendency for calcium phosphate stones and pH greater than 6.0 may reduce the tendency for uric acid stone formation. Source: [employer]. Last revised 03-08-2017 Carolina Delarosa MD LAB MICROBIOLOGY - GENERAL ORDERABLES Final Result Performing Organization Address [facility] Co de Phone Number [facility] [place] [address] * Erythrocyte sedimentation rate (03/16/2022 4:30 PM PHARMACIST TECHNICIAN) [facility] Erythrocyte sedimentation rate 19 1 - 20 mm/hr [facility] Blood 03/16/2022 4:30 PM PHARMACIST TECHNICIAN 03/16/2022 4:57 PM PHARMACIST TECHNICIAN us Carolina Delarosa MD LAB BLOOD ORDERABLES Final Result Performing Organization Address [facility] de Phone Number [facility] [place] [address] * (ABNORMAL) Anti-double stranded DNA antibodies (03/16/2022 4:30 PM PHARMACIST TECHNICIAN) [facility] dsDNA Ab 5.0(H) <=4.0 IUnits/mL [facility] Comment: Interpretive Data Negative: < or = 4 IUnits/mL Indeterminate: 5 - 9 IUnits/mL Positive: > or = 10 IUnits/mL Current interpretive data was last revised on 2016. Blood 03/16/2022 4:30 PM PHARMACIST TECHNICIAN 03/16/2022 4:57 PM PHARMACIST TECHNICIAN us Carolina Delarosa MD LAB BLOOD ORDERABLES Final Result Performing Organization Address [facility] Co de Phone Number [facility] Department [place] [address] * CRP (acute phase) (03/16/2022 4:30 PM PHARMACIST TECHNICIAN) [facility] CRP 3.6 <=10.0 mg/L [facility] Blood 03/16/2022 4:30 PM PHARMACIST TECHNICIAN 03/16/2022 4:57 PM PHARMACIST TECHNICIAN Carolina Delarosa MD LAB BLOOD ORDERABLES Final Result [facility] [place] [address] * C3 complement (03/16/2022 4:30 PM PHARMACIST TECHNICIAN) Complement C3 143.0 90.0 - 180.0 mg/dL [facility] Blood 03/16/2022 4:30 PM PHARMACIST TECHNICIAN 03/16/2022 4:57 PM PHARMACIST TECHNICIAN Carolina Delarosa MD LAB BLOOD ORDERABLES Final Result Performing Organization Address [facility] Co de Phone Number [facility] [place] [address] documented in this encounter Visit Diagnoses Diagnosis Lupus Systemic lupus erythematosus documented in this encounter Care Teams Cw Operator Relationship Specialty [place] [address] [address] [place] [address] PCP - General 07/04/19 [place] [address] [address] [address] 11/16/18 Ernie Shaw MD [address] [place] [address] [address] [place] [address] Fork Lift Truck Operator Obstetrics and Gynecology 06/10/20 documented as of this encounter
--- OUTSIDE RECORDS SUMMARY | 2024-02-24 19:59 | XMS_ITS | Encounter Summary ---
Author Organization [facility] Healthcare Address [address] [place] [address] Care Team Providers Care District Ranger Name Role Phone Huseyin Dangelo MD Unavailable [phone] Brian Mon MD Primary Care Provider + Ernie Shwa MD Unavailable [phone] Encounter Details Date Type Department Care Team (Late st Contact Info) Description 06/23/2021 12:55 PM CDT Lab [address] [id number] Sore throat Social History Tobacco Use Types Packs/Day Years [...] and Family Not on file 01/01/2021 Attends Yarsani Services Not on file 01/01 Active Member [...] a senior care (including now)? No 01/01/2021 [place] Depression Scale Answer Date Recorded [place] Depression Scale Total 11 01/11/2021 The thought of harming myself has occurred to me . 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 * Result Encounter Note - Rachelle Toledo PA - 06/24/2021 10:10 AM CDT Wait for final results. documented in this encounter Plan of Treatment Not on file documented as of this encounter Procedures Procedure Name Priority Date/Time Associated Diagnosis Comments THROAT CULTURE Routine 06/23/2021 8:48 AM CDT Sore throat documented in this encounter Results * Throat culture Throat (06/23/2021 8:48 AM CDT) Report Final Report: No growth of pathogens. [facility] Comment:Testing performed by : [facility], [address] [place]., [address] Throat 06/23/2021 8:48 AM CDT 06/23/2021 2:41 PM CDT Narrative [facility] - 06/24/2021 2:38 PM CDT Testing performed by [facility] Microbiology Laboratory ([phone]). Rachelle CAGLE LAB MICROBIOLOGY - GENERAL ORDERABLES Final Result [facility] [address] Department [place] [address] documented in this encounter Visit Diagnoses Diagnosis Sore throat Acute pharyngitis documented in this encounter Care Teams District Ranger Relationship Specialty [place] [address] [address] [facility] [address] [place] [address] PCP - General 07/04/19 [place] [address] [address] [place] [address] 11/16/18 Ernie Shaw MD [address] [place] [address] [address] [place] [address] Continuing Education Specialist Obstetrics and Gynecology 06/10/20 documented as of this encounter
--- OUTSIDE RECORDS SUMMARY | 2024-02-24 19:59 | XMS_ITS | Encounter Summary ---
Author Organization [facility] Address [address] [place] [address] Care Team Providers Care Dulser Name Role Phone Huseyin Dangelo MD Unavailable [phone] Brian Mon MD Primary Care Provider + Ernie Shaw MD Unavailable [phone] Encounter Details Date Type Department Care Team (Late st Contact Info) Description 09/20/2021 Telephone [facility] Gastroenterology at [address] [place] [address] Jacqui Mccloud MA Social History Tobacco Use Types Packs/Day Years [...] and Family Not on file 01/01/2021 Attends Gnosticist Services Not on file 01/01 Active Member [...] place to sleep or slept in a long term (including now)? No 01/01/2021 [place] Depression Scale Answer Date Recorded [place] Depression Scale Total 11 01/11/2021 The thought [...] encounter Miscellaneous Notes * Telephone Encounter - Jacqui Mccloud MA - 10/05/2021 10:50 AM CDT Spoke with pt and she states that she does not have insurance at this time and will call back when she does to schedule a sigmoid and a 2 week follow up visit * Telephone Encounter - Jacqui Mccloud MA - 09/20/2021 1:41 PM CDT lvm for pt to call back and schedule a sigmoidoscopy for 10-06-21 at [address] ribeiro a 2 week follow up appt with bayron or anson documented in this encounter Plan of Treatment Not on file documented as of this encounter Visit Diagnoses Not on filedocumented in this encounter Additional Health Concerns Infection Onset Date Last Indicated Resolved Time COVID: Suspected 09/30/2021 09/30/2021 09/30/2021 11:06 PM CDT documented as of this encounter Care Teams Dulser Relationship Specialty [place] [address] [address] [place] [address] PCP - General 07/04/19 [place] [address] [address] [place] [address] 11/16/18 Ernie Shaw MD [address] [place] [address] [address] [place] [address] Gang Boss Obstetrics and Gynecology 06/10/20 documented as of this encounter
--- OUTSIDE RECORDS SUMMARY | 2024-02-24 19:59 | XMS_ITS | Encounter Summary ---
Author Organization [facility] Address [address] [place] [address] Phone Care Team Providers Care Simplex Printer Installer Name Role Phone Huseyin Dangelo MD Unavailable [phone] Brian Mon MD Primary Care Provider + Ernie Shaw MD Unavailable [phone] Encounter Details Date Type Department Care Team (Late st Contact Info) Description 03/16/2022 3:00 PM POWER TRANSMISSION ENGINEER Office Visit [facility] Rheumatology [facility] Medicine 5th [place] [address] [place] [address] Lupus (CMS/HCC) (HCC) (Primary Dx) Social History Tobacco Use [...] and Family Not on file 01/01/2021 Attends [employer] Services Not on file 01/01 Active [...] place to sleep or slept in a residential (including now)? No 01/01/2021 [place] Depression Scale Answer Date Recorded [place] Depression Scale Total 11 01/11/2021 The thought [...] Sign Reading Time Taken Comments Blood Pressure 112/73 03/16/2022 2:49 PM POWER TRANSMISSION ENGINEER Pulse 84 03/16/2022 2:49 PM POWER TRANSMISSION ENGINEER Temperature 36.7 ??C (98.1 ??F) 03/16/2022 2:49 PM CS T Respiratory Rate - - Oxygen Saturation - - Inhaled Oxygen Concentration - - Weight 79.4 kg (175 lb) 03/16/2022 2:49 PM POWER TRANSMISSION ENGINEER Height 160 cm (5' 3 ) 03/16/2022 2:49 PM POWER TRANSMISSION ENGINEER Body Mass Index 31 03/16/2022 2:49 PM POWER TRANSMISSION ENGINEER documented in this encounter Patient Instructions * Patient Instructions* Carolina Delarosa MD - 03/16/2022 3:00 PM POWER TRANSMISSION ENGINEER Eye test needed- dilated eye exam, visual field test, OCT R TRANSMISSION ENGINEER documented in this encounter Progress Notes * Carolina Delarosa MD - 03/16/2022 3:00 PM CST PATIENT NAME: Carito Madison : 1990 03/16/2022 HISTORY OF PRESENT ILLNESS: ia a 31 y.o. female with SLE. The patient was diagnosed with SLE in 2018 when she flared after a 2nd trimester loss. She was previously healthy and reported no symptoms through her . She has a positive BARAK 1:1280 centromere and homogeneous positive. She also has a positive double- stranded DNA, HEAD GOL[employer]ESSIONAL antibody and a low C4 and C3 [...] has not had an eye exam since July 2020 In terms of lupus symptoms she is [...] Rash Caused seizures Caused seizures Caused seizures Reglan [Metoclopramide] Dizziness Sulfamethoxazole-Trimethoprim Other (See comments) Cannot take bactrim because of lupus Venlafaxine Itching CURRENT MEDICATION: Current Outpatient Medications: hydrOXYchloroQUINE (PLAQUENIL) 200 mg tablet, Take 2 tablets (400 mg total) by mouth daily, Disp: 60 tablet, Rfl: 1 predniSONE (DELTASONE) 5 mg tablet, Take 1 tablet (5 mg) by mouth daily, Disp: 90 tablet, Rfl: 0 sertraline (ZOLOFT) 25 mg tablet, Take 25 mg by mouth daily, Disp: , Rfl: valACYclovir (VALTREX) 500 mg tablet, , Disp: , Rfl: fluconazole (DIFLUCAN) 150 mg tablet, Take 1 tablet daily for 2 days. (Patient not taking: Reportedon 03/16/2022), Disp: 2 tablet, Rfl: 0 PHYSICAL EXAM: Vitals BP 112/73 (BP Location: Left arm, Patient Position: Sitting) Pulse 84 Temp 36.7 ??C (98.1 ??F) (Oral) Ht 160 cm (5' 3 ) Wt 79.4 kg (175 lb) BMI 31.00 kg/m?? Physical Exam General examination is unremarkable There is no oral ulcers on lymphadenopathy today Skin is without any evidence of rash No tender or swollen joints today RS is clear to auscultation CVS S1-S2 is regular without a murmur or gallop No peripheral edema LABORATORY DATA: Lab Results Component Value Date WBC 7.4 12/25/2021 HGB 11.1 (L) 12/25/2021 HCT 35.5 (L) 12/25/2021 MCV 77.0 (L) 12/25/2021 LABPLAT 365 12/25/2021 Lab Results Component Value Date AST 19 12/25/2021 ALT 12 12/25/2021 CREATININE 0.54 (L) 12/25/2021 Lab Results Component Value Date SEDRATE 15 05/04/2021 Lab Results Component Value Date CRP 3.4 05/04/2021 ASSESSMENT AND PLAN: SLE In conclusion this is a 29-year-old female with a diagnosis of lupus. At this point she is 15 months and really seems to be clinically in remission. We will do labs today. I have advised her to get an eye exam NAHOMY so that we can continue to fill her hydroxychloroquine as she is about 6 months overdue for her eye test She will continue with hydroxychloroquine 200 mg and her prednisone is now managed by endocrinology I am happy to see that she is doing well despite being on very little medication as she previously had very active disease. DISPOSITION: The patient will return follow up in 6 months Carolina Delarosa MD R TRANSMISSION ENGINEER documented in this encounter Plan of Treatment Not on file documented as of this encounter Procedures Procedure Name Priority Date/Time Associated Diagnosis Comments POCT URINALYSIS DIPSTICK Routine 03/16/2022 2:44 PM POWER TRANSMISSION ENGINEER Lupus (CMS/HCC) (HCC) documented in this encounter Results * C3 complement (03/16/2022 4:30 PM POWER TRANSMISSION ENGINEER) Complement C3 143.0 90.0 - 180.0 mg/dL [facility] Blood 03/16/2022 4:30 PM POWER TRANSMISSION ENGINEER 03/16/2022 4:57 PM POWER TRANSMISSION ENGINEER Result [facility] Carolina Delarosa MD LAB BLOOD ORDERABLES Final Result Performing Organization Address [facility] Co de Phone Number [facility] Department [place] [address] * CRP (acute phase) (03/16/2022 4:30 PM POWER TRANSMISSION ENGINEER) CRP 3.6 <=10.0 mg/L [facility] Blood 03/16/2022 4:30 PM POWER TRANSMISSION ENGINEER 03/16/2022 4:57 PM POWER TRANSMISSION ENGINEER Result [facility] Carolina Delarosa MD LAB BLOOD ORDERABLES Final Result Performing Organization Address [facility] de Phone Number [facility] Department [place] [address] * (ABNORMAL) Anti-double stranded DNA antibodies (03/16/2022 4:30 PM POWER TRANSMISSION ENGINEER) Pathologist [facility] dsDNA Ab 5.0(H) <=4.0 IUnits/mL [facility] Comment: Interpretive Data Negative: < or = 4 IUnits/mL Indeterminate: 5 - 9 IUnits/mL Positive: > or = 10 IUnits/mL Current interpretive data was last revised on 2016. Blood 03/16/2022 4:30 PM POWER TRANSMISSION ENGINEER 03/16/2022 4:57 PM POWER TRANSMISSION ENGINEER Result [facility] Carolina Delarosa MD LAB BLOOD ORDERABLES Final Result Performing Organization Address [facility] Co de Phone Number [facility] Department [place] [address] * Erythrocyte sedimentation rate (03/16/2022 4:30 PM POWER TRANSMISSION ENGINEER) Erythrocyte sedimentation rate 19 1 - 20 mm/hr [facility] Blood 03/16/2022 4:30 PM POWER TRANSMISSION ENGINEER 03/16/2022 4:57 PM POWER TRANSMISSION ENGINEER us Carolina Delarosa MD LAB BLOOD ORDERABLES Final Result Performing Organization Address City/[facility]/ZIP Co de Phone Number [facility] Department [place] [address] * (ABNORMAL) Urinalysis reflex to microscopic and culture Urine (03/16/2022 4:30 PM POWER TRANSMISSION ENGINEER) Color, ur Yellow Yellow [facility] Clarity, ur Cloudy(A) Clear [facility] Specific gravity, ur 1.029 1.003 - 1.030 [facility] pH, urine 5.5 [facility] Protein, ur ql 1+(A) Negative [facility] Glucose, ur ql Negative Negative [facility] Ketones, ur Negative Negative [facility] Bilirubin, ur Negative Negative [facility] Blood, ur Negative Negative [facility] Urobilinogen, ur <2.0 <2.0 mg/dL [facility] Nitrite, ur Negative Negative [facility] Leukocyte esterase, ur Trace(A) Negative [facility] UA reflex comment Reflex to microscopic UA will be performed. [facility] Urine 03/16/2022 4:30 PM POWER TRANSMISSION ENGINEER 03/16/2022 4:57 PM POWER TRANSMISSION ENGINEER Narrative [facility] - 03/16/2022 5:15 PM POWER TRANSMISSION ENGINEER ?? Urine pH is affected by diet, medications, systemic acid-base disturbances, and renal tubular function. ??pH may affect urinary stone formation. ??For example, urine pH below 6.0 may help reduce the tendency for calcium phosphate stones and pH greater than 6.0 may reduce the tendency for uric acid stone formation. Source: [employer]. Last revised 03-08-2017 us Carolina Delarosa MD LAB MICROBIOLOGY - GENERAL ORDERABLES Final Result Performing Organization Address City/[facility]/ZIP Co de Phone Number [facility] Department [place] [address] * C4 complement (03/16/2022 4:30 PM POWER TRANSMISSION ENGINEER) Complement C4 19.8 10.0 - 40.0 mg/dL [facility] Blood 03/16/2022 4:30 PM POWER TRANSMISSION ENGINEER 03/16/2022 4:57 PM POWER TRANSMISSION ENGINEER Result [facility] Carolina Delarosa MD LAB BLOOD ORDERABLES Final Result Performing Organization Address [facility] de Phone Number [facility] [place] [address] * Protein / creatinine ratio, urine, random (03/16/2022 4:30 PM POWER TRANSMISSION ENGINEER) [facility] Protein, ur, quant 19.1 mg/dL [facility] Comment: Interpretive Data No reference range established. Current interpretive data was last revised 2018. Creatinine Ur 218.3 mg/dL [facility] Comment: Interpretive Data No reference range established. Current interpretive data was last revised 2018. Protein/creatinin e ratio 87.5 0.0 - 180.0 mg/g CR [facility] Urine 03/16/2022 4:30 PM POWER TRANSMISSION ENGINEER 03/16/2022 4:57 PM POWER TRANSMISSION ENGINEER Result [facility] Carolina Delarosa MD LAB URINE ORDERABLES Final Result Performing Organization Address [facility] de Phone Number [facility] [place] [address] * (ABNORMAL) Comprehensive metabolic panel (03/16/2022 3:26 PM POWER TRANSMISSION ENGINEER) Pathologist [facility] Total Protein 7.6 6.1 - 8.4 g/dL [facility] Albumin 4.6 3.5 - 5.2 g/dL [facility] Calcium 9.3 8.6 - 10.3 mg/dL [facility] BUN 11 7 - 23 mg/dL [facility] Total Bilirubin 0.23 0.20 - 1.40 mg/dL [facility] Alk Phos, Total 53 35 - 129 IU/L [facility] AST (SGOT) 15 11 - 47 IU/L [facility] ALT (SGPT) 12 6 - 53 IU/L [facility] Creatinine 0.57(L) 0.60 - 1.10 mg/dL [facility] Sodium 137 135 - 145 mmol/L [facility] Potassium 3.6 3.3 - 5.1 mmol/L [facility] Chloride 104 95 - 107 mmol/L [facility] CO2 Content 24 21 - 29 mmol/L [facility] Glucose 97 64 - 99 mg/dL [facility] Comment: NONFASTING GLUCOSE RANGE = 64-199 mg/dL FASTING GLUCOSE 64 - 99 = NORMAL FASTING GLUCOSE 100 - 125 = IMPAIRED FASTING GLUCOSE FASTING GLUCOSE >=126 = PROVISIONAL DIAGNOSIS OF DIABETES eGFR >90.0 >60.0 mL/min/1.7 3 m2 [facility] Blood 03/16/2022 3:26 PM POWER TRANSMISSION ENGINEER 03/16/2022 3:58 PM POWER TRANSMISSION ENGINEER us Carolina Delarosa MD LAB BLOOD ORDERABLES Final Result [facility] * (ABNORMAL) CBC with auto differential (03/16/2022 3:26 PM POWER TRANSMISSION ENGINEER) White Blood Count 9.5 3.6 - 11.2 K/uL [facility] RBC 4.27 3.63 - 4.92 M/uL [facility] Hemoglobin 9.8(L) 11.9 - 15.5 g/dL [facility] Hematocrit 31.0(L) 36.1 - 44.3 % [facility] MCV 72.5(L) 80.0 - 97.6 fL [facility] MCH 22.9(L) 26.7 - 33.7 pg [facility] MCHC 31.5(L) 32.7 - 35.5 g/dL [facility] RBC Dist Width 18.0(H) 12.3 - 17.0 % [facility] Platelet Count 338 140 - 440 K/uL [facility] MPV 8.3 6.8 - 10.4 fL [facility] Neutrophils % 73.5 38.7 - 74.5 % [facility] Lymphocyte % 19.1(L) 20.0 - 54.3 % [facility] Monocytes % 6.2 4.3 - 13.5 % [facility] Eosinophils % 0.6 0.0 - 6.0 % [facility] Basophil % 0.6 0.0 - 3.0 % [facility] Absolute Neutrophil 7.0(H) 1.8 - 6.6 K/uL [facility] Absolute Lymphocyte 1.8 0.8 - 3.3 K/uL [facility] Absolute Monocyte 0.6 0.2 - 1.2 K/uL [facility] Absolute Eosinophil 0.1 0.0 - 0.5 K/uL [facility] Absolute Basophil 0.1 0.0 - 0.2 K/uL [facility] Nucleated RBC % 0.0 0.0 - 0.4 /100 WBC [facility] Blood 03/16/2022 3:26 PM POWER TRANSMISSION ENGINEER 03/16/2022 3:58 PM POWER TRANSMISSION ENGINEER Carolina Delarosa MD LAB BLOOD ORDERABLES Final Result [facility] * (ABNORMAL) POCT urinalysis dipstick (03/16/2022 2:44 PM POWER TRANSMISSION ENGINEER) Glucose, ur, POC Negative Negative MG/DL Bilirubin, ur, POC Negative Negative, Small, Moderate, Large Ketones, ur, POC Negative Negative Specific [place], [facility] Comment:>=1.030 Blood, ur, POC Negative Negative pH, ur, POC 5.5 5.0 - 8.0 Protein, ur, POC Trace(A) Negative Urobilinogen, urine, POC 0.2 0.2 - 1.0 mg/dL Nitrite, ur, POC Negative Negative Leukocytes, ur, POC Negative Negative Lot Number [id number] Urine 03/16/2022 2:44 PM POWER TRANSMISSION ENGINEER Carolina Delarosa MD POINT OF CARE TEST ORDERAB LES Final Result documented in this encounter Visit Diagnoses Diagnosis Lupus- Primary Systemic lupus erythematosus Lupus Systemic lupus erythematosus documented in this encounter Discontinued Medications Medication Sig Discontinue Reason Start Date End Da te traZODone (DESYREL) 50 mg tablet TAKE 1/2-1 TABLET BY MOUTH AT NIGHT FOR SLEEP/ANXIETY Therapy completed 08/11/2021 03/16/2022 simethicone (MYLICON) 80 mg chewable tabletIndications:Fla tulence Take 1 tablet (80 mg total) by mouth 4 (four) times a day as needed for flatulence Therapy completed 01/03/2021 03/16/2022 sertraline (ZOLOFT) 50 mg tablet TAKE 1 AND 1/2 TABLETS(75 MG) BY MOUTH DAILY Therapy completed 08/15/2021 03/16/2022 promethazine-DM (PROMETHAZINE-DM) 1.25-3 mg/mL syrup Take 5 mL by mouth 4 (four) times a day as needed for cough (And runny nose) Collaborating physician Jorge Arriaga MD Therapy completed 03/09/2021 03/16/2022 PNV with [id number] 27 mg iron- 1 mg tabletIndications:Vit silva Deficiency Prevention Take 1 tablet by mouth daily Therapy completed 01/04/2021 03/16/[address] (PROTONIX) 40 mg EC tabletIndications:Str ess Ulcer Prophylaxis Take 1 tablet (40 mg total) by mouth daily Therapy completed 01/03/2021 03/16/2022 norgestimate-ethinyl estradioL (ORTHO-CYCLEN) 0.25-35 mg-mcg per tablet Take 1 tablet by mouth daily Therapy completed 03/21/2021 03/16/2022 lidocaine viscous (XYLOCAINE) 2 % solutionIndications:M outh Irritation Apply 10 mL to the mouth or throat 3 (three) times a day as needed (for mouth/dental pain) Spit out after use. Do not swallow. Therapy completed 06/23/2021 03/16/2022 lidocaine 5 % cream Apply 1 inch topically 2 (two) times a day Apply in anal area twice daily Therapy completed 09/17/2021 03/16/2022 hydrocortisone (ANUSOL-HC) 2.5 % rectal cream Insert 1 applicator rectally 1-2 times daily as needed when hemorrhoids are flared up. Therapy completed 03/04/2021 03/16/2022 cyclobenzaprine (FLEXERIL) 5 mg tablet Take 1 tablet (5 mg total) by mouth 3 (three) times a day as needed for muscle spasms Therapy completed 01/03/2021 03/16/2022 ergocalciferol (VITAMIN D) 50,000 unit capsule TAKE 1 CAPSULE EVERY WEEK BY ORAL ROUTE. Therapy completed 08/07/2021 03/16/2022 acetaminophen 500 mg capsuleIndications:Pa in Take 2 capsules (1,000 mg total) by mouth every 6 (six) hours Therapy completed 01/03/2021 03/16/2022 al & mag hydroxide with simethicone-diphenhyd ramine-lidocaine (MAGIC MOUTHWASH) suspension 1-1-1 Swish and swallow 10 mL every 4 (four) hours as needed (oral ulcers) Therapy completed 12/09/2020 03/16/2022 benzonatate (TESSALON) 100 mg capsuleIndications:Co ugh Take 1 capsule (100 mg total) by mouth 3 (three) times a day as needed for cough Therapy completed 07/25/2021 03/16/2022 documented as of this encounter Care Teams Simplex Printer Installer Relationship Specialty [place] [id number] [address] [place] [id number] PCP - General 07/04/19 [place] [id number] [address] [place] [id number] 11/16/18 Ernie Shaw MD [address] [place] [id number] Director Of Business Applications Obstetrics and Gynecology 06/10/20 documented as of this encounter
--- OUTSIDE RECORDS SUMMARY | 2024-02-24 19:59 | XMS_ITS | Encounter Summary ---
Author Organization [facility] Healthcare Address [address] [place] [address] Care Team Providers Care Extermination Inspector Name Role Phone Huseyin Dangelo MD Unavailable [phone] Brian Mon MD Primary Care Provider + Ernie Shaw MD Unavailable [phone] Reason for Visit * Reason Comments Neck Pain Encounter Details Date Type Department Care Team (Late st Contact Info) Description 03/25/2022 6:52 AM WOOD BOATBUILDER APPRENTICE - 03/25/2022 8:40 AM WOOD BOATBUILDER APPRENTICE Emergency [facility] Emergency Department [address] [place] [address] Esau Perry MD [address] [place] [id number] Strain of neck muscle, initial encounter (Primary Dx) Discharge Disposition: Discharge to home [...] and Family Not on file 01/01/2021 Attends Holiness Services Not on file 01/01 Active Member [...] in a fpc (including now)? No 01/01/2021 [place] Depression Scale Answer Date Recorded [place] Depression Scale Total 11 01/11/2021 The thought [...] Sign Reading Time Taken Comments Blood Pressure 129/78 03/25/2022 8:00 AM WOOD BOATBUILDER APPRENTICE Pulse 69 03/25/2022 8:00 AM WOOD BOATBUILDER APPRENTICE Temperature 36 ??C (96.8 ??F) 03/25/2022 6:50 AM WOOD BOATBUILDER APPRENTICE Respiratory Rate 18 03/25/2022 6:50 AM WOOD BOATBUILDER APPRENTICE Oxygen Saturation 100% 03/25/2022 8:00 AM WOOD BOATBUILDER APPRENTICE Inhaled Oxygen Concentration - - Weight - - Height - - Body Mass Index - - documented in this encounter Discharge Instructions * Discharge Instructions* Esau Perry MD - 03/25/2022 8:32 AM WOOD BOATBUILDER APPRENTICE Take naproxen twice a day. Follow-up with your primary care doctor. Avoid heavy lifting or exertion. Finish your antibiotics. BOATBUILDER APPRENTICE * Attachments The following attachments cannot be sent through Care Everywhere. * Cervical Strain (Discharge Care) ([place]) documented in this encounter Medications at Time of Discharge omeprazole (PriLOSEC) 20 mg capsule Take 1 capsule (20 mg total) by mouth daily sertraline (ZOLOFT) 25 mg tablet Take 1 tablet (25 mg total) by mouth daily 08/21/2021 valACYclovir (VALTREX) 500 mg tablet 03/09/2021 cefdinir (OMNICEF) 300 mg capsuleIndications :Non-recurrent acute suppurative otitis media of both ears without spontaneous rupture of tympanic membranes Take 1 capsule (300 mg total) by mouth 2 (two) times a day for 10 days 20 capsule 03/23/2022 3 fluconazole (DIFLUCAN) 150 mg tabletIndications: Antibiotic-induced yeast infection Take 1 tablet (150 mg total) by mouth as directed Take one tab now. Repeat in 7 days if symptoms persist. 2 tablet 03/23/2022 4 hydrOXYchloroQUINE (PLAQUENIL) 200 mg tabletIndications: Systemic Lupus Erythematosus Take 2 tablets (400 mg total) by mouth daily 60 tablet 1 12/30/2021 3 naproxen (NAPROSYN) 500 mg tablet Take [...] 03/17/2022 4 documented as of this encounter Ordered Prescriptions Prescription Sig Dispense Quantity Refills Last Filled Start Date End Date naproxen (NAPROSYN) 500 mg tablet Take 1 tablet (500 mg total) by mouth 2 (two) times a day as needed for pain Take with food. 30 tablet 03/25/2022 10/22/2023 documented in this encounter Discharge Disposition Disposition Code Departure Means Destination Discharge to home or self care documented in this encounter ED Notes * Esau Perry MD - 03/25/2022 7:11 AM CST HPI Chief Complaint Patient presents with Neck Pain Patient has been having left-sided neck pain since 2 days ago. She says she can not turn her neck. Pain radiates to the left scapular area. No trouble swallowing. No fever. She was diagnosed with an ear infection. She is having chills. Her back hurts when she takes a deep breath. No shortness of breath. 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 HENT: Negative for congestion, rhinorrhea and sore throat. Eyes: Negative for pain. Respiratory: Negative for cough and shortness of breath. Cardiovascular: Negative for chest pain and leg swelling. Gastrointestinal: Negative for abdominal pain, diarrhea, nausea and vomiting. Genitourinary: Negative for difficulty urinating. Musculoskeletal: Positive for back pain and neck pain. Negative for myalgias. Skin: Negative for rash. Neurological: Negative for dizziness and headaches. Psychiatric/Behavioral: Negative for behavioral problems. Physical Exam ED Triage Vitals [03/25/22 0650] Temp Pulse Resp BP SpO2 36 ??C (96.8 ??F) 78 18 129/77 100 % Temp src Heart Rate Source Patient Position BP Location FiO2 (%) Temporal -- -- -- -- Height Height Method Weight Weight Method -- -- -- -- Physical Exam Vitals and nursing note reviewed. Constitutional: General: She is not in acute distress. Appearance: She is well-developed. HENT: Head: Normocephalic and atraumatic. Eyes: Conjunctiva/sclera: Conjunctivae normal. Neck: Comments: Tenderness to left-side of neck. No obvious mass. Cardiovascular: Rate and Rhythm: Normal rate and regular rhythm. Heart sounds: No murmur heard. Pulmonary: Effort: Pulmonary effort is normal. No respiratory distress. Breath sounds: Normal breath sounds. Abdominal: Palpations: Abdomen is soft. Tenderness: There is no abdominal tenderness. Musculoskeletal: General: No swelling. Cervical back: Tenderness present. Comments: Point tenderness to left scapular area. Skin: General: Skin is warm and dry. Capillary Refill: Capillary refill takes less than 2 seconds. Neurological: Mental Status: She is alert. Psychiatric: Mood and Affect: Mood normal. MDM Medical Decision Making Patient presents with left neck pain. History of lupus Amount and/or Complexity of Data Reviewed Labs: ordered. Details: White blood cells normal. Hemoglobin low at 9.2. I informed the patient of this. She will follow-up with her doctor. Radiology: ordered. Details: CT neck: Nothing acute. Discussion of management or test interpretation with external provider(s): Differential diagnosis: Muscle strain, abscess, infection. No evidence of abscess or infection. Most likely this is muscle strain. Will put her on NSAIDs. Follow-up with her doctor regarding anemia. Risk Prescription drug management. ED Course as of 03/25/22 0846 Time: 03/25 711 Comment: PERC score 0. By: Esau Perry MD Final diagnoses: Strain of neck muscle, initial encounter Esau Perry MD 03/25/22 0846 BOATBUILDER APPRENTICE * Leti Mcleod RN - 03/25/2022 6:48 AM CST Pt presents to the Ed to be evaluated for left neck pain. Pt reports that she is currently being treated for a left ear infection and has been on antibiotics for 2 days. Pt states the neck pain is unrelieved by OTC medications and reports that the pain radiates down the neck and into the back. BOATBUILDER APPRENTICE documented in this encounter Plan of Treatment Not on file documented as of this encounter Procedures Procedure Name Priority Date/Time Associated Diagnosis Comments CT SOFT TISSUE NECK W CONTRAST ED 03/25/2022 7:56 AM WOOD BOATBUILDER APPRENTICE POCT HCG, URINE Routine 03/25/2022 7:23 AM WOOD BOATBUILDER APPRENTICE EGFR STAT 03/25/2022 7:17 AM WOOD BOATBUILDER APPRENTICE DIFFERENTIAL AUTO STAT 03/25/2022 7:1 7 AM WOOD BOATBUILDER APPRENTICE CBC WITH AUTO DIFFERENTIAL STAT 03/25/2022 7:17 AM WOOD BOATBUILDER APPRENTICE COMPREHENSIVE METABOLIC PANEL STAT 03/25/2022 7:17 AM WOOD BOATBUILDER APPRENTICE documented in this encounter Results * CT Neck Soft Tissue W Contrast (03/25/2022 7:56 AM WOOD BOATBUILDER APPRENTICE) Anatomical Region Laterality Modality Head and Neck N/A Computed Tomogra phy 03/25/2022 8:03 AM WOOD BOATBUILDER APPRENTICE Narrative 03/25/2022 8:16 AM WOOD BOATBUILDER APPRENTICE EXAM DESCRIPTION: ?? CT SOFT TISSUE NECK W CONTRAST REASON FOR STUDY: ?? Neck mass, nonpulsatile ?? Pt presents to the Ed to be evaluated for left neck pain. ??Pt reports that she is currently being treated for a left ear infection and has been on antibiotics for 2 days. ??Pt states the neck pain is unrelieved by OTC medications and reports that the ?? pain radiates down the neck and into the back. ?? TECHNIQUE: Post IV contrast scanning from skull base through lung apices. ?? Reconstructed MPR images reviewed. All images stored on PACS. Automated exposure control was used as a dose optimization technique for this examination. CONTRAST TYPE/DOSE: ?? 75mL of IOVERSOL 350 MG IODINE/ML INTRAVENOUS SYRINGE ?? injected via ?? intravenous COMPARISON: ?? No prior neck. ??Prior CT chest 06/22/2019. FINDINGS: SOFT TISSUE: ?? No mass, edema or inflammatory change. ORAL CAVITY/FLOOR OF MOUTH, PHARYNX, LARYNX, HYPOPHARYNX: ?? No abnormal findings. LYMPHADENOPATHY: ?? There are occasional subcentimeter short axis lymph nodes of the bilateral neck. ??These are typically reactive. ??No adenopathy by size criteria. MAJOR SALIVARY GLANDS: ?? No solid or cystic masses. ??No inflammatory changes. THYROID: ?? Normal size. ??No nodules greater than 1 cm. VASCULATURE: ?? No apparent critical stenosis or occlusion. INTRACRANIAL/SKULL BASE/INCLUDED ORBITS: ?? Limited intracranial evaluation. No abnormal findings. PARANASAL SINUSES: ?? Well-aerated. ?? Mild mucosal thickening paranasal sinuses. CERVICAL SPINE: ?? No significant abnormalities. LUNG APICES: ?? No infiltrate. ??Small 3 mm pleural based nodule is seen along the posterior aspect of the right lung apex. ??No change from prior CT of 06/22/2019. ??Long-term stability indicates benign etiology. ??No follow-up recommended per Fleischner criteria. OTHER: ?? Mastoid air cells are clear. IMPRESSION: ?? 1. ?? No suspicious mass is seen of the neck. 2. ?? Occasional small subcentimeter short axis lymph node is seen of the bilateral neck. ??These are typically reactive. ??No adenopathy by size criteria. THIS IS AN ELECTRONICALLY VERIFIED FINAL REPORT 03/25/2022 8:16 AM - Electronically signed by ??Dilan Cassidywein M.D. MJ: BIA D: ??03/25/2022 8:16 AM T: ??03/25/2022 8:16 AM Report ID: [id number] Reading Location: ??[id number] Procedure Note Dilan Jorge MD - 03/25/2022 EXAM DESCRIPTION: CT SOFT TISSUE NECK W CONTRAST REASON FOR STUDY: Neck mass, nonpulsatile Pt presents to the Ed to be evaluated for left neck pain. Pt reports thatshe is currently being treated for a left ear infection and has been on antibiotics for 2 days. Pt states the neck pain is unrelieved by OTC medications and reports that the pain radiates down the neck and intothe back. TECHNIQUE: Post IV contrast scanning from skull base through lung apices. Reconstructed MPR images reviewed. All images stored on PACS. Automated exposure control was used as a dose optimization technique for this examination. CONTRAST TYPE/DOSE: 75mL of IOVERSOL 350 MG IODINE/ML INTRAVENOUSSYRINGE injected via intravenous COMPARISON: No prior neck. Prior CT chest 06/22/2019. FINDINGS: SOFT TISSUE: No mass, edema or inflammatory change. ORAL CAVITY/FLOOR OF MOUTH, PHARYNX, LARYNX, HYPOPHARYNX: No abnormal findings. LYMPHADENOPATHY: There are occasional subcentimeter short axis lymphnodes of the bilateral neck. These are typically reactive. No adenopathy bysize criteria. MAJOR SALIVARY GLANDS: No solid or cystic masses. No inflammatorychanges. THYROID: Normal size. No nodules greater than 1 cm. VASCULATURE: No apparent critical stenosis or occlusion. INTRACRANIAL/SKULL BASE/INCLUDED ORBITS: Limited intracranialevaluation. No abnormal findings. PARANASAL SINUSES: Well-aerated. Mild mucosal thickening paranasal sinuses. CERVICAL SPINE: No significant abnormalities. LUNG APICES: No infiltrate. Small 3 mm pleural based nodule is seenalong the posterior aspect of the right lung apex. No change from prior CT of 06/22/2019. Long-term stability indicates benign etiology. No follow-up recommended per Fleischner criteria. OTHER: Mastoid air cells are clear. IMPRESSION: 1. No suspicious mass is seen of the neck. 2. Occasional small subcentimeter short axis lymph node is seen of the bilateral neck. These are typically reactive. No adenopathy by size criteria. THIS IS AN ELECTRONICALLY VERIFIED FINAL REPORT 03/25/2022 8:16 AM - Electronically signed by Dilan Jorge M.D. MJ: BIA Report ID: [id number] Reading Location: [place] [address] Esau Perry MD IMG CT PROCEDURES Final Resu lt * POCT hCG, urine (03/25/2022 7:23 AM WOOD BOATBUILDER APPRENTICE) HCG, ur, POC Negative Lot Number [id number] QC Backgroud Clear Acceptable QC Control Line Acceptable Urine 03/25/2022 7:23 AM WOOD BOATBUILDER APPRENTICE Esau Perry MD POINT OF CARE TEST ORDERABLE S Final Result * eGFR (03/25/2022 7:17 AM WOOD BOATBUILDER APPRENTICE) eGFR 123 mL/min/1. 73 m2 [facility] ([place]) Comment: [...] interpretive data was last reviewed 2020. Blood 03/25/2022 7:17 AM WOOD BOATBUILDER APPRENTICE 03/25/2022 7:20 AM WOOD BOATBUILDER APPRENTICE us Esau Perry MD LAB BLOOD ORDERABLES Final R esult [facility] ([place]) 1 [facility] Department [place] [address] * Differential, auto (03/25/2022 7:17 AM WOOD BOATBUILDER APPRENTICE) Neutrophil abs 4.1 1.7 - 6.5 K/cumm [facility] ([place]) Imm gran abs 0.0 0.0 - 0.1 K/cumm [facility] ([place]) Lymphocyte abs 2.2 0.8 - 3.3 K/cumm [facility] ([place]) Monocyte abs 0.5 0.2 - 0.8 K/cumm [facility] ([place]) Eosinophil abs 0.1 0.0 - 0.5 K/cumm [facility] ([place]) Basophil abs 0.1 0.0 - 0.1 K/cumm [facility] ([place]) Neutrophil pct 59.2 % [facility] ([place]) Comment: Interpretive Data Percent cell count reference ranges are not reported, since discordance with absolute values may lead to misinterpretation of CBC data. Current Interpretive Data was last revised on 2017. Imm gran pct 0.1 % [facility] ([place]) Comment: Interpretive Data Percent cell count reference ranges are not reported, since discordance with absolute values may lead to misinterpretation of CBC data. Current Interpretive Data was last revised on 2017. Lymphocyte pct 31.4 % [facility] ([place]) Comment: Interpretive Data Percent cell count reference ranges are not reported, since discordance with absolute values may lead to misinterpretation of CBC data. Current Interpretive Data was last revised on 2017. Monocyte pct 6.6 % [facility] ([place]) Comment: Interpretive Data Percent cell count reference ranges are not reported, since discordance with absolute values may lead to misinterpretation of CBC data. Current Interpretive Data was last revised on 2017. Eosinophil pct 2.0 % [facility] ([place]) Comment: Interpretive Data Percent cell count reference ranges are not reported, since discordance with absolute values may lead to misinterpretation of CBC data. Current Interpretive Data was last revised on 2017. Basophil pct 0.7 % [facility] ([place]) Comment: Interpretive Data Percent cell count reference ranges are not reported, since discordance with absolute values may lead to misinterpretation of CBC data. Current Interpretive Data was last revised on 2017. Blood 03/25/2022 7:17 AM WOOD BOATBUILDER APPRENTICE 03/25/2022 7:20 AM WOOD BOATBUILDER APPRENTICE us Esau Perry MD LAB BLOOD ORDERABLES Final R esult [facility] ([place]) 1 [facility] Department [place] [address] * Comprehensive metabolic panel (03/25/2022 7:17 AM WOOD BOATBUILDER APPRENTICE) Sodium 141 135 - 145 mmol/L [facility] ([place]) Potassium, pl 3.8 3.3 - 4.9 mmol/L [facility] ([place]) Chloride 104 97 - 110 mmol/L [facility] CO2 29 22 - 32 mmol/L [facility] ([place]) Anion gap 8 2 - 15 mmol/L [facility] ([place]) BUN 15 8 - 25 mg/dL [facility] ([place]) Creatinine 0.64 0.60 - 1.10 mg/dL [facility] ([place]) Glucose 92 70 - 199 mg/dL [facility] ([place]) Comment: Interpretive Data Fasting glucose [...] interpretive data was last revised 2022. Calcium 9.4 8.5 - 10.3 mg/dL [facility] ([place]) Bilirubin, total <0.2 0.1 - 1.2 mg/dL [facility] ([place]) Protein, pl 6.8 6.5 - 8.5 g/dL [facility] ([place]) Albumin 4.1 3.5 - 5.0 g/dL [facility] ([place]) Alk phos 45 40 - 130 Units/L [facility] ([place]) ALT 9 7 - 45 Units/L [facility] ([place]) AST 13 10 - 45 Units/L [facility] ([place]) Blood 03/25/2022 7:17 AM WOOD BOATBUILDER APPRENTICE 03/25/2022 7:20 AM WOOD BOATBUILDER APPRENTICE us Esau Perry MD LAB BLOOD ORDERABLES Final R esult [facility] ([place]) 1 [facility] Department [place] [address] * (ABNORMAL) CBC with auto differential (03/25/2022 7:17 AM WOOD BOATBUILDER APPRENTICE) WBC 6.9 3.8 - 9.9 K/cumm [facility] ([place]) Hgb 9.2(L) 11.9 - 15.5 g/dL [facility] ([place]) Hct 29.9(L) 35.6 - 45.5 % [facility] ([place]) Plt 328 150 - 400 K/cumm [facility] ([place]) MPV 9.6 9.1 - 12.3 fL [facility] ([place]) RBC 4.01 3.90 - 5.20 M/cumm [facility] ([place]) MCV 74.6(L) 81.3 - 96.4 fL [facility] ([place]) MCH 22.9(L) 27.1 - 33.3 pg [facility] ([place]) MCHC 30.8(L) 32.3 - 35.7 g/dL [facility] ([place]) RDW CV 16.4(H) 11.1 - 14.9 % [facility] ([place]) RDW SD 44.6 35.7 - 48.1 fL [facility] ([place]) NRBC abs 0.00 0.00 - 0.01 K/cumm [facility] ([place]) Blood 03/25/2022 7:17 AM WOOD BOATBUILDER APPRENTICE 03/25/2022 7:20 AM WOOD BOATBUILDER APPRENTICE us Esau Perry MD LAB BLOOD ORDERABLES Final R esult [facility] ([place]) 1 [facility] Department [place] [address] documented in this encounter Visit Diagnoses Diagnosis Strain of neck muscle, initial encounter- Primary documented in this encounter Administered Medications Inactive Administered Medications - up to 3 most recent administrations Medication Order MAR Action Action Date Dose Rate Site ioversoL (OPTIRAY 350) syringe 75 mL 75 mL, intravenous, Once in imaging, contrast, Starting on 03/25/22 at 0755, For 1 dose Contrast Given 03/25/2022 7:56 AM WOOD BOATBUILDER APPRENTICE 75 mL documented in this encounter Active and Recently Administered Medications Times are shown in WOOD BOATBUILDER APPRENTICE. PRN Medication Order 03/23/2022 03/24/2022 03/25/2022 ioversoL (OPTIRAY 350) syringe 75 mL (COMPLETED) 75 mL, intravenous, Once in imaging, contrast, Starting on 03/25/22 at 0755, For 1 dose 0756 (Contrast Given - Provider: Adina Monzon, RT) documented in this encounter Orders Medications Ordered That Omer ht Not Have Been Administered Count Last Ordered Date First Ordered Date ioversoL (OPTIRAY 350) syringe 75 mL 1 02/27 documented in this encounter Care Teams Extermination Inspector Relationship Specialty [place] [address] [facility] [address] [place] [address] PCP - General 07/04/19 [place] [address] [place] [address] 11/16/18 Ernie Shaw MD [address] [place] [address] [address] [place] [address] Medical Assistant Cardiology Obstetrics and Gynecology 06/10/20 documented as of this encounter
--- OUTSIDE RECORDS SUMMARY | 2024-02-24 19:59 | XMS_ITS | Encounter Summary ---
Author Organization [facility] Address [address] [place] [address] Care Team Providers Care Blacktop Spreader Name Role Phone Huseyin Dangelo MD Unavailable [phone] Brian Mon MD Primary Care Provider + Ernie Shaw MD Unavailable [phone] Reason for Visit * Reason Comments URI Ear pain, sore throa t, facial pain, chest tightness, headache for 2 days Encounter Details Date Type Department Care Team (Late st Contact Info) Description 06/23/2021 8:00 AM CDT Office Visit [facility] [address] [place] [address] [place] [address] Rachelle Toledo, TSERING [address] [place] [address] Sore throat (Primary Dx); Viral URI with cough Social History Tobacco Use Types Packs/Day Years [...] and Family Not on file 01/01/2021 Attends [employer] Not on file 01/01 Active Member [...] place to sleep or slept in a [facility] (including now)? No 01/01/2021 Ross Depression Scale Answer Date Recorded Ross Depression Scale Total 11 01/11/2021 The thought [...] Sign Reading Time Taken Comments Blood Pressure 116/70 06/23/2021 8:23 AM CDT Pulse 63 06/23/2021 8:23 AM CDT Temperature 36.7 ??C (98.1 ??F) 06/23/2021 8:23 AM CD T Respiratory Rate 18 06/23/2021 8:23 AM CDT Oxygen Saturation 99% 06/23/2021 8:23 AM CDT Inhaled Oxygen Concentration - - Weight 74.8 kg (165 lb) 06/23/2021 8:23 AM CDT Height 160 cm (5' 3 ) 06/23/2021 8:23 AM CDT Body Mass Index 29.23 06/23/2021 8:23 AM CDT documented in this encounter Patient Instructions * Patient Instructions* Rachelle Toledo PA - 06/23/2021 8:00 AM CDT Use the viscous lidocaine as prescribed for your sore throat. You can also drink warm liquids, gargle warm salt water, and take ibuprofen as directed for your sore throat. You can take Sudafed, Mucinex, and use Flonase, a humidifier, or a Neti pot as directed for your congestion. You can also use Afrin as directed for your congestion. However, do not use this for more than 3 days as it can cause rebound congestion. Make sure to drink plenty of fluids. Follow-up with your primary care provider. Go to the ER if you develop difficulty breathing, difficulty swallowing, or any other concerning symptoms. documented in this encounter Ordered Prescriptions Prescription Sig Dispense Quantity Refills Last Filled Start Date End Date lidocaine viscous (XYLOCAINE) 2 % solutionIndication s:Mouth Irritation Apply 10 mL to the mouth or throat 3 (three) times a day as needed (for mouth/dental pain) Spit out after use. Do not swallow. 100 mL 06/23/2021 03/16/2022 documented in this encounter Progress Notes * Rachelle Toledo, TSERING - 06/23/2021 8:00 AM CDT Images from the original note were not included. Subjective/Objective Patient ID: Carito Madison is a 31 y.o. female. Chief Complaint URI (Ear pain, sore throat, facial pain, chest tightness, headache for 2 days) Patient is a 31 y/o female who presents for evaluation of fatigue, fever, bilateral ear pain, congestion, sore throat, dry cough, onset 3 days ago. She states that the sore throat is the worst symptom. She states that she has still been able to swallow liquids and solids, but it is painful. She states that she has been taking Zyrtec, Benadryl, Flonase, Tylenol, ibuprofen with no relief. She has received her COVID vaccines and denies known COVID exposure. Review of Systems Constitutional: Positive for fatigue and fever. Negative for chills. HENT: Positive for congestion, ear pain and sore throat. Negative for postnasal drip and rhinorrhea. Eyes: Negative for discharge. Respiratory: Positive for cough. Negative for shortness of breath. Cardiovascular: Negative for chest pain. Gastrointestinal: Negative for diarrhea, nausea and vomiting. Musculoskeletal: Negative for myalgias. Neurological: Negative for headaches. Physical Exam Constitutional: General: She is not in acute distress. Appearance: Normal appearance. She is not ill-appearing or toxic-appearing. HENT: Head: Normocephalic. Right Ear: Ear canal and external ear normal. A middle ear effusion is present. Left Ear: Tympanic membrane, ear canal and external ear normal. Nose: Nose normal. Right Turbinates: Swollen. Left Turbinates: Swollen. Mouth/Throat: Mouth: Mucous membranes are moist. Pharynx: Oropharynx is clear. Uvula midline. Posterior oropharyngeal erythema present. No oropharyngeal exudate. Tonsils: No tonsillar exudate or tonsillar abscesses. Eyes: General: Lids are normal. Extraocular Movements: Extraocular movements intact. Conjunctiva/sclera: Conjunctivae normal. Pupils: Pupils are equal, round, and reactive to light. Cardiovascular: Rate and Rhythm: Normal rate and regular rhythm. Heart sounds: Normal heart sounds. Pulmonary: Effort: Pulmonary effort is normal. No respiratory distress. Breath sounds: Normal breath sounds and air entry. No stridor. No wheezing, rhonchi or rales. Musculoskeletal: General: Normal range of motion. Cervical back: Normal range of motion and neck supple. Skin: General: Skin is warm and dry. Neurological: General: No focal deficit present. Mental Status: She is alert and oriented to person, place, and time. Mental status is at baseline. Psychiatric: Mood and Affect: Mood normal. Behavior: Behavior normal. Vitals: 06/23/21 0823 BP: 116/70 Pulse: 63 Resp: 18 Temp: 36.7 ??C (98.1 ??F) SpO2: 99% Weight: 74.8 kg (165 lb) Height: 160 cm (5' 3 ) Assessment/Plan Use the viscous lidocaine as prescribed for your sore throat. You can also drink warm liquids, gargle warm salt water, and take ibuprofen as directed for your sore throat. You can take Sudafed, Mucinex, and use Flonase, a humidifier, or a Neti pot as directed for your congestion. You can also use Afrin as directed for your congestion. However, do not use this for more than 3 days as it can cause rebound congestion. Make sure to drink plenty of fluids. Follow-up with your primary care provider. Go to the ER if you develop difficulty breathing, difficulty swallowing, or any other concerning symptoms. Diagnoses and all orders for this visit: Sore throat (Primary) - Throat culture Throat; Future - POCT rapid strep A - lidocaine viscous (XYLOCAINE) 2 % solution; Apply 10 mL to the mouth or throat 3 (three) times a day as needed (for mouth/dental pain) Spit out after use. Do not swallow. Viral URI with cough - POC Influenza A/B, COVID-19 antigen Recent Results (from the past 4 hour(s)) POC Influenza A/B, COVID-19 antigen Collection Time: 06/23/21 8:46 AM Result Value Ref Range Inflenza A Ag, POC Negative Influenza B Ag, POC Negative COVID-19 Ag POC Presumptive Negative Presumptive Negative, Invalid POCT rapid strep A Collection Time: 06/23/21 8:47 AM Result Value Ref Range Rapid Strep A, POC Negative Patient Education: Disposition ??? Treatment plan including expectations, follow up, and return precautions discussed with patient/parent, verbalizes understanding. ??? Medication dosage, use, and potential adverse reactions discussed with patient/parent. ??? Advised to follow up with PCP if symptoms do not resolve as expected or sooner if condition worsens. ??? Signs/symptoms warranting ER evaluation reviewed. ??? Patient and/or guardian was given an opportunity to ask questions, questions answered. TSERING Beckham PA Cosigned by Nae Wilson DO at 06/23/2021 5:22 PM CDT documented in this encounter Plan of Treatment Not on file documented as of this encounter Procedures Procedure Name Priority Date/Time Associated Diagnosis Comments POCT RAPID STREP Routine 06/23/2021 8:47 AM CDT Sore throat POC INFLUENZA A/B, COVID-19 ANTIGEN Routine 06/23/2021 8:46 AM CDT Viral URI with cough documented in this encounter Results * Throat culture Throat (06/23/2021 8:48 AM CDT) Report Final Report: No growth of pathogens. ARPITA POLLARD Comment:Testing performed by : [facility], [address] [place]., [address] Throat 06/23/2021 8:48 AM CDT 06/23/2021 2:41 PM CDT Narrative ARPITA POLLARD - 06/24/2021 2:38 PM CDT Testing performed by [facility] ([phone]). us Rachel[facility] MICROBIOLOGY - GENERAL ORDERABLES Final Result ARPITA POLLARD [address] [place] [address] * POCT rapid strep A (06/23/2021 8:47 AM CDT) Rapid Strep A, POC Negative Swab 06/23/2021 8:47 AM CDT Rachelle [facility] POINT OF CARE TEST ORDERABLES Final Result * POC Influenza A/B, COVID-19 antigen (06/23/2021 8:46 AM CDT) Influenza A Ag, POC Negative [facility] Influenza B Ag, POC Negative [facility] COVID-19 Ag POC Presumptive Negative Presumptive Negative, Invalid [facility] Nasal 06/23/2021 8:46 AM CDT Rachelle [facility] POINT OF CARE TEST ORDERABLES Final Result [facility] [address] [place] [address] [place] [address] documented in this encounter Visit Diagnoses Diagnosis Sore throat- Primary Acute pharyngitis Viral URI with cough Sore throat Acute pharyngitis documented in this encounter Discontinued Medications Medication Sig Discontinue Reason Start Date End Da te azithromycin (Zithromax Z-Maximilian) 250 mg tablet Take 1 tablet (250 mg total) by mouth daily Take first 2 tablets together, then 1 every day until finished. Collaborating physician Jorge Arriaga MD 03/09/2021 06/23/2021 cephalexin (KEFLEX) 500 mg capsule Take 1 capsule (500 mg total) by mouth 4 (four) times a day 01/22/2021 06/23/2021 benzonatate (TESSALON) 100 mg capsule 03/05/2021 06/23/2021 documented as of this encounter Additional Health Concerns Infection Onset Date Last Indicated Resolved Time COVID: Suspected 06/23/2021 06/23/2021 06/23/2021 8:47 AM CDT documented as of this encounter Care Teams Blacktop Spreader Relationship Specialty [place] [address] [place] [address] PCP - General 07/04/19 [place] [address] [place] [address] 11/16/18 Ernie Shaw MD [address] [place] [address] [address] [place] [address] Nursing Care Partner Obstetrics and Gynecology 06/10/20 documented as of this encounter
--- OUTSIDE RECORDS SUMMARY | 2024-02-24 19:59 | XMS_ITS | Encounter Summary ---
Author Organization [facility] Healthcare Address [address] [place] [address] Care Team Providers Care Rim Buster Name Role Phone Huseyin Dangelo MD Unavailable [phone] Brian Mon MD Primary Care Provider + Ernie Shaw MD Unavailable [phone] Reason for Visit * Reason Comments Toe Pain Encounter Details Date Type Department Care Team (Late st Contact Info) Description 04/23/2021 8:27 AM [facility]ANO MACHINE OPERATOR - 04/23/2021 9:07 AM [facility] Emergency [facility] Emergency Department [address] [place] [address] Adolfo Arguello MD [address] [place] [id number] Cellulitis of great toe, left (Primary Dx) Discharge Disposition: Discharge to home [...] and Family Not on file 01/01/2021 Attends [employer] Not on file 01/01 Active Member of Clubs or Organizations Not on f ile 01/01/2021 Attends Club or Organization Meetings Not on catarian e 01/01/2021 Are you , , di [...] place to sleep or slept in a prison (including now)? No 01/01/2021 [place] Depression Scale Answer Date Recorded [place] Depression Scale Total 11 01/11/2021 The thought [...] Sign Reading Time Taken Comments Blood Pressure 119/73 04/23/2021 8:14 AM PIANO MACHINE OPERATOR Pulse 84 04/23/2021 8:10 AM PIANO MACHINE OPERATOR Temperature 36.2 ??C (97.1 ??F) 04/23/2021 8:10 AM CS T Respiratory Rate 18 04/23/2021 8:10 AM PIANO MACHINE OPERATOR Oxygen Saturation 100% 04/23/2021 8:10 AM PIANO MACHINE OPERATOR Inhaled Oxygen Concentration - - Weight 74.8 kg (165 lb) 04/23/2021 8:10 AM PIANO MACHINE OPERATOR Height 160 cm (5' 3 ) 04/23/2021 8:10 AM PIANO MACHINE OPERATOR Body Mass Index 29.23 04/23/2021 8:10 AM PIANO MACHINE OPERATOR documented in this encounter Discharge Diagnoses Diagnosis Cellulitis of left toe - CELLULITIS OF LEFT TOE Unspecified asthma, uncomplicated - UNSPECIFIED ASTHMA, UNCOMPLICATED Chronic kidney disease, unspecified - CHRONIC KIDNEY DISEASE, UNSPECIFIED Rheumatoid arthritis, unspecified (HCC) - RHEUMATOID ARTHRITIS, UNSPECIFIED Family history of ischemic heart disease and other diseases of the circulatory system - FAMILY HISTORY OF ISCHEMIC HEART DISEASE AND OTHER DISEASES OF THE CIRCULATORY SYSTEM Family history of diabetes mellitus - FAMILY HISTORY OF DIABETES MELLITUS Personal history of nicotine dependence - PERSONAL HISTORY OF NICOTINE DEPENDENCE documented in this encounter Discharge Instructions * Attachments The following attachments cannot be sent through Care Everywhere. * Cellulitis ([employer]el[employer] Lead [employer]er) (Lithuanian) documented in this encounter Medications at Time of Discharge valACYclovir (VALTREX) 500 mg tablet 2 cephalexin (KEFLEX) 500 mg capsule Take 1 capsule (500 mg total) by mouth 4 (four) times a day for 10 days 40 capsule 2 05/04/19 22 fluconazole (DIFLUCAN) 150 mg tablet Take 1 tablet (150 mg total) by mouth once for 1 dose 1 tablet 2 04/23/19 22 acetaminophen 500 mg capsuleIndications :Pain Take 2 capsules (1,000 mg total) by mouth every 6 (six) hours 30 tablet 1 03/16/19 23 al & mag hydroxide with simethicone-diphen hydramine-lidocain e (MAGIC MOUTHWASH) suspension 1-1-1 Swish and swallow 10 mL every 4 (four) hours as needed (oral ulcers) 300 mL 1 03/16/19 23 azithromycin (Zithromax Z-Maximilian) 250 mg tablet Take 1 tablet (250 mg total) by mouth daily Take first 2 tablets together, then 1 every day until finished. Collaborating physician Jorge Arriaga MD 6 tablet 2 06/24/19 22 benzonatate (TESSALON) 100 mg capsule 2 06/24/19 22 cephalexin (KEFLEX) 500 mg capsule Take 1 capsule (500 mg total) by mouth 4 (four) times a day 28 capsule 06/24/19 22 cyclobenzaprine (FLEXERIL) 5 mg tablet Take 1 tablet (5 mg total) by mouth 3 (three) times a day as needed for muscle spasms 30 tablet 1 03/16/19 23 fluconazole (DIFLUCAN) 150 mg tablet 1 07/26/19 22 hydrocortisone (ANUSOL-HC) 2.5 % rectal cream Insert 1 applicator rectally 1-2 times daily as needed when hemorrhoids are flared up. 30 g 5 2 03/16/19 23 hydrOXYchloroQUINE (PLAQUENIL) 200 mg tablet Take 2 tablets (400 mg total) by mouth daily 60 tablet 5 1 07/23/19 22 norgestimate-ethin yl estradioL (ORTHO-CYCLEN) 0.25-35 mg-mcg per tablet Take 1 tablet by mouth daily 28 tablet 2 03/16/[address] (PROTONIX) 40 mg EC tabletIndications: Stress Ulcer Prophylaxis Take 1 tablet (40 mg total) by mouth daily 30 tablet 11 1 03/16/19 23 PNV with [id number]-kwux-CU 27 mg iron- 1 mg tabletIndications: Vitamin Deficiency Prevention Take 1 tablet by mouth daily 30 tablet 1 1 03/16/19 23 predniSONE (DELTASONE) 2.5 mg tablet Take 3 tablets (7.5 mg) by mouth daily 30 tablet 2 1 05/15/19 22 predniSONE (DELTASONE) 5 mg tabletIndications: Adrenal insufficiency (HCC) TAKE 1 TABLET BY MOUTH EVERY DAY 30 tablet 5 1 05/15/19 22 promethazine-DM (PROMETHAZINE-DM) 1.25-3 mg/mL syrup Take 5 mL by mouth 4 (four) times a day as needed for cough (And runny nose) Collaborating physician Jorge Arriaga MD 118 mL 2 03/16/19 23 sertraline (ZOLOFT) 25 mg tablet 1 08/16/19 22 simethicone (MYLICON) 80 mg chewable tabletIndications: Flatulence Take 1 tablet (80 mg total) by mouth 4 (four) times a day as needed for flatulence 30 tablet 1 03/16/19 23 documented as of this encounter Ordered Prescriptions Prescription Sig Dispense Quantity Refills Last Filled Start Date End Date cephalexin (KEFLEX) 500 mg capsule Take 1 capsule (500 mg total) by mouth 4 (four) times a day for 10 days 40 capsule 04/23/2021 2 fluconazole (DIFLUCAN) 150 mg tablet Take 1 tablet (150 mg total) by mouth once for 1 dose 1 tablet 04/23/2021 2 documented in this encounter Discharge Disposition Disposition Code Departure Means Destination Discharge to home or self care documented in this encounter ED Notes * Adolfo Arguello MD - 04/23/2021 8:44 AM CST HPI Chief Complaint Patient presents with ??? Toe Pain Patient is a 30-year-old female who presents emergency room complaining of a left great toe ingrowntoenail. Patient complains of pain and redness. No fevers chills or drainage. No red streaks. Patient states she can get in to a sanitation director in 2 days but did not want to wait. Patient also states that she thinks she has a yeast vaginal infection. Complains of itching. No aggravating alleviating factors. There is no other complaints of further review of symptoms negative Patient History: Patient Active Problem List Diagnosis Date Noted ??? Rectal bleeding 11/16/2020 ??? Polyhydramnios in third trimester, not applicable or unspecified fetus 10/26/2020 ??? Acute pharyngitis 03/09/2021 ??? COVID-19 virus infection 03/05/2021 ??? delivery 12/30/2020 ??? Anemia during in third trimester 11/19/2020 ??? Marginal insertion of umbilical cord affecting management of mother in second trimester 08/26/2020 ??? Placenta previa 08/26/2020 ??? Attention deficit hyperactivity disorder (ADHD), combined type 07/15/2020 ??? Generalized anxiety disorder 06/15/2020 ??? Supervision of high-risk , unspecified trimester 06/10/2020 ??? Secondary adrenal insufficiency (CMS/HCC) (HCC) 06/03/2020 ??? Right carpal tunnel syndrome 05/12/2020 ??? Bilateral chronic serous otitis media 03/31/2020 ??? Adrenal insufficiency (CMS/HCC) (HCC) 03/04/2020 ??? Microcytic anemia 12/24/2019 ??? Joint pain 12/24/2019 ??? Anti-THERMOFORMING OPERATOR antibodies present 12/24/2019 ??? Epilepsy undetermined as to focal or generalized (CMS/HCC) (HCC) 08/26/2019 ??? Liver lesion 07/16/2019 ??? BMI 29.0-29.9,adult 07/16/2019 ??? Tachycardia ??? Cough 05/24/2019 ??? Lupus (CMS/HCC) (HCC) 05/24/2019 ??? Miscarriage 05/24/2019 ??? Laceration of flexor muscle, fascia and tendon of right little finger at wrist and hand level, initial encounter 12/06/2018 Past Medical History: Diagnosis Date ??? Anemia ??? Anxiety ??? Anxiety disorder currently on no meds ??? Asthma never hospitalized/intubated. albuterol as needed ??? Chronic diarrhea ??? Chronic kidney disease lupus nephritis ??? Depression ??? Headache, tension-type ??? Lupus (CMS/HCC) (HCC) ??? PONV (postoperative nausea and vomiting) ??? 07/13/2015 ??? Rheumatoid arthritis (HCC) ??? Seizures (CMS/HCC) (HCC) reaction to a medication Past Surgical History: Procedure Laterality Date ??? APPENDECTOMY ??? BREAST BIOPSY Right 02/23/2021 ??? COLONOSCOPY 07/29/2019 1st ??? DILATION AND CURETTAGE OF UTERUS 09/2017 ??? ESOPHAGOGASTRODUODENOSCOPY 07/2019 ??? HAND SURGERY ??? WRIST SURGERY Right 12/09/2018 rt wrist median nerve repair, allograft nerve wrap application Family History Problem Relation Age of Onset ??? Gout Mother ??? Diabetes Mother ??? Hypertension Mother ??? Heart disease Father ??? Stroke Father ??? Colon cancer Other Social History Tobacco Use ??? Smoking status: Former Smoker Quit date: 12/28/2018 Years since quittin.3 ??? Smokeless tobacco: Never Used Vaping Use ??? Vaping Use: Never used Substance Use Topics ??? Alcohol use: Yes Comment: occasionally ??? Drug use: Not Currently Types: Marijuana Comment: 01/09 - denies Social History Social History Narrative ??? Not on file Review of Systems Review of Systems All other systems reviewed and are negative. Physical Exam ED Triage Vitals Temp Pulse Resp BP SpO2 04/23/21 0810 04/23/21 0810 04/23/21 0810 04/23/21 0814 04/23/21 0810 36.2 ??C (97.1 ??F) 84 18 119/73 100 % Temp src Heart Rate Source Patient Position BP Location FiO2 (%) 04/23/21 0810 -- -- 04/23/21 0814 -- Temporal Right arm Physical Exam Vitals and nursing note reviewed. Constitutional: General: She is not in acute distress. Appearance: She is not ill-appearing, toxic-appearing or diaphoretic. HENT: Head: Normocephalic and atraumatic. Eyes: Conjunctiva/sclera: Conjunctivae normal. Cardiovascular: Rate and Rhythm: Normal rate and regular rhythm. Pulses: Normal pulses. Pulmonary: Effort: Pulmonary effort is normal. Breath sounds: Normal breath sounds. No wheezing. Musculoskeletal: General: Normal range of motion. Cervical back: Normal range of motion and neck supple. No rigidity. Comments: Left great toe-erythema noted around toenail with no gross drainage or fluctuance appreciated, no lymphangitis streaks. Toenail intact. Skin: General: Skin is warm and dry. Capillary Refill: Capillary refill takes less than 2 seconds. Neurological: Mental Status: She is alert and oriented to person, place, and time. Gait: Gait normal. Psychiatric: Thought Content: Thought content normal. [facility] ED Course as of 04/23/21899 Time: 04/23 08 Comment: Explained to patient due to infection around nail-will begin antibiotics and she will needto keep appointment with sanitation director. Will give Diflucan also By: Adolfo Arguello MD Final diagnoses: Cellulitis of great toe, left Adolfo Arguello MD 04/23/21899 O MACHINE OPERATOR * Marci Madison RN - 04/23/2021 8:08 AM CST Pt reports that she has ingrown toenail to the L great toe x 1 week, redness and pain noted. Pt also reports that she thinks she has a yeast infection, reports that her vagina Itches and she has white discharge with no odor x 2 days pt also requesting to be tested for bacterial vaginosis because she has a history of getting it frequently O MACHINE OPERATOR O MACHINE OPERATOR O MACHINE OPERATOR O MACHINE OPERATOR documented in this encounter Plan of Treatment Not on file documented as of this encounter Procedures Procedure Name Priority Date/Time Associated Diagnosis Comments POCT HCG, URINE Routine 04/23/2021 8:33 AM [facility] MACHINE OPERATOR URINALYSIS AND REFLEX TO MICROSCOPIC STAT 04/23/2021 8:32 AM PIANO MACHINE OPERATOR URINALYSIS, MICROSCOPIC ONLY STAT 04/23/2021 8:32 AM [facility]ANO MACHINE OPERATOR documented in this encounter Results * POCT hCG, urine (04/23/2021 8:33 AM PIANO MACHINE OPERATOR) HCG, ur, POC Negative Lot Number [id number] QC Backgroud Clear Acceptable QC Control Line Acceptable Urine 04/23/2021 8:33 AM [facility] MACHINE OPERATOR Adolfo Arguello MD POINT OF CARE TEST ORDERABLES Final Result * (ABNORMAL) Urinalysis, microscopic only (04/23/2021 8:32 AM PIANO MACHINE OPERATOR) WBC, ur 21-50(A) 0 - 5 /HPF [facility] ([place]) RBC, ur 11-20(A) 0 - 2 /HPF [facility] ([place]) Epithelial cells, squamous, ur 11-20(A) 0 - 5 /HPF [facility] ([place]) Bacteria, ur 2+(A) [facility] ([place]) Yeast, ur 1+(A) [facility] ([place]) Mucous, ur Present(A) [facility] ([place]) Urine 04/23/2021 8:32 AM PIANO MACHINE OPERATOR 04/23/2021 8:35 AM PIANO MACHINE OPERATOR us Raji Triplett MD LAB URINE ORDERABLES Final Result [facility] ([place]) [facility] Department of Laboratories [place], [place] [id number] * (ABNORMAL) Urinalysis reflex to microscopic (04/23/2021 8:32 AM PIANO MACHINE OPERATOR) Color, ur Yellow Yellow [facility] ([place]) Clarity, ur Turbid(A) Clear [facility] ([place]) Specific gravity, ur 1.033(H) 1.003 - 1.030 [facility] ([place]) pH, urine 5.5 [facility] ([place]) Protein, ur ql 1+(A) [...] will be performed. [facility] ([place]) Urine 04/23/2021 8:32 AM [facility]ANO MACHINE OPERATOR 04/23/2021 8:35 AM [facility] MACHINE OPERATOR Narrative [facility] ([place]) - 04/23/2021 8:44 AM [facility]ANO MACHINE OPERATOR ?? Urine pH is affected by diet, medications, systemic acid-base disturbances, and renal tubular function. ??pH may affect urinary stone formation. ??For example, urine pH below 6.0 may help reduce the tendency for calcium phosphate stones and pH greater than 6.0 may reduce the tendency for uric acid stone formation. Source: [employer]. Last revised 03-08-2017 us Adolfo Arguello MD LAB URINE ORDERABLES Final Re sult [facility] ([place]) [facility] Department [place] [address] documented in this encounter Visit Diagnoses Diagnosis Cellulitis of great toe, left- Primary documented in this encounter Care Teams Rim Buster Relationship Specialty [place] [address] [address] [place] [address] PCP - General 07/04/19 [place] [address] [address] [place] [address] 11/16/18 Ernie Shaw MD [address] [place] [address] [address] [place] [address] Machinist Bench Obstetrics and Gynecology 06/10/20 documented as of this encounter
--- OUTSIDE RECORDS SUMMARY | 2024-02-24 19:59 | XMS_ITS | Encounter Summary ---
Author Organization [facility] Healthcare Address [address] [place] [address] Care Team Providers Care Rivet Machine Operator Name Role Phone Huseyin Dangelo MD Unavailable [phone] Brian Mon MD Primary Care Provider + Ernie Shaw MD Unavailable [phone] Reason for Visit * Reason Comments Flu Symptoms Encounter Details Date Type Department Care Team (Late st Contact Info) Description 04/23/2022 6:57 AM PUTTIER - 04/23/2022 8:11 AM PUTTIER Emergency [facility] Emergency Department [address] [place] [address] Anthony Honeycutt MD [address] [place] [id number] Viral syndrome (Primary Dx) Discharge Disposition: Discharge to home [...] and Family Not on file 01/01/2021 Attends Sikhism Services Not on file 01/01 Active Member [...] place to sleep or slept in a snf (including now)? No 01/01/2021 [place] Depression Scale Answer Date Recorded [place] Depression Scale Total 11 01/11/2021 The thought [...] Sign Reading Time Taken Comments Blood Pressure 120/78 04/23/2022 7:45 AM PUTTIER Pulse 75 04/23/2022 7:45 AM PUTTIER Temperature 36.6 ??C (97.8 ??F) 04/23/2022 7:[address] Respiratory Rate 18 04/23/2022 6:49 AM PUTTIER Oxygen Saturation 100% 04/23/2022 7:45 AM PUTTIER Inhaled Oxygen Concentration - - Weight 78 kg (172 lb) 04/23/2022 6:49 AM PUTTIER Height 157.5 cm (5' 2 ) 04/23/2022 6:49 AM PUTTIER Body Mass Index 31.46 04/23/2022 6:49 AM PUTTIER documented in this encounter Discharge Instructions * Discharge Instructions* Anthony Honeycutt MD - 04/23/2022 7:56 AM PUTTIER Thank you for the opportunity to care for you today! You were evaluated for and diagnosed with a viral infection. You had an x-ray and COVID/flu tests that were unremarkable. You should follow-up with your primary doctor in the next week as needed. Return to the ED for increased trouble breathing or other concern. You should use your inhaler as needed. You may use yojy-gan-hhyrsgr cough medications and or honey/dark chocolate which have as much evidence. We sincerely hope you feel better soon! IER documented in this encounter Medications at Time [...] documented in this encounter ED Notes * Anthony Honeycutt MD - 04/23/2022 6:49 AM CST HPI Chief Complaint Patient presents with Flu Symptoms Patient is a 31-year-old woman with a history of SLE on hydroxychloroquine and prednisone who presents with cough, sore throat, and congestion. Onset 1 week ago. Seen in urgent care 2 days ago with negative viral studies. States that things have not been improving despite slightly increase in prednisone and use of albuterol MDI (although she states she does not know how to use this). Also took old cefdinir that she had at home. Denies fever, chills, significant chest pain, leg swelling, abdominal pain, nausea, vomiting, or other complaints. 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 HENT: Positive for congestion, ear pain and sore throat. Negative for rhinorrhea. Eyes: Negative for visual disturbance. Respiratory: Positive for cough and shortness of breath. Cardiovascular: Negative for chest pain. Gastrointestinal: Negative for abdominal pain, constipation, diarrhea, nausea and vomiting. Genitourinary: Negative for dysuria, frequency and urgency. Musculoskeletal: Negative for myalgias. Skin: Negative for rash. Neurological: Negative for seizures, syncope and headaches. Psychiatric/Behavioral: Negative for confusion. Physical Exam ED Triage Vitals Temp Pulse Resp BP SpO2 04/23/22 0649 04/23/22 0649 04/23/22 0649 04/23/22 0651 04/23/2249 37.3 ??C (99.2 ??F) 74 18 122/72 100 % Temp src Heart Rate Source Patient Position BP Location FiO2 (%) 04/23/22648 -- -- 04/23/22650 -- Temporal Right arm Height Height Method Weight Weight Method 04/23/22 0649 04/23/22 0649 04/23/22 0649 04/23/2249 1.575 m (5' 2 ) Stated 78 kg (172 lb) Stated Physical Exam Vitals and nursing note reviewed. Constitutional: General: She is not in acute distress. Appearance: She is not ill-appearing or diaphoretic. HENT: Head: Normocephalic and atraumatic. Right Ear: Tympanic membrane normal. Left Ear: Tympanic membrane normal. Mouth/Throat: Mouth: Mucous membranes are moist. Pharynx: Posterior oropharyngeal erythema present. No oropharyngeal exudate. Eyes: General: No scleral icterus. Extraocular Movements: Extraocular movements intact. Cardiovascular: Rate and Rhythm: Normal rate and regular rhythm. Pulmonary: Effort: Pulmonary effort is normal. No respiratory distress. Breath sounds: No wheezing. Abdominal: General: There is no distension. Musculoskeletal: General: No swelling. Normal range of motion. Cervical back: Normal range of motion. Skin: General: Skin is warm and dry. Findings: No rash. Neurological: General: No focal deficit present. Mental Status: She is alert and oriented to person, place, and time. Mental status is at baseline. Psychiatric: Mood and Affect: Mood normal. Behavior: Behavior normal. [facility] Medical Decision Making 31-year-old woman with a history of SLE who presents with cough, sore throat, and congestion. Suspect viral syndrome including COVID or influenza. Doubt bacterial pneumonia. Take B strep pharyngitis.Doubt other emergent condition. Plan: Viral swab, x-ray, single dose of dexamethasone, education on MDI Amount and/or Complexity of Data Reviewed External Data Reviewed: notes. Details: Urgent care note Labs: ordered. Decision-making details documented in ED Course. Radiology: ordered. Decision-making details documented in ED Course. Risk Prescription drug management. ED Course as of 04/23/22 075 Time: 04/23 718 Value: XR Chest 1 View Comment: Negative acute By: Anthony Honeycutt MD Time: 04/23 739 Value: COVID-19 RNA: Negative Comment: (Reviewed) By: Anthony Honeycutt MD Time: 04/23 739 Value: Influenza A RNA: Negative Comment: (Reviewed) By: Anthony Honeycutt MD Time: 04/23 739 Comment: Remains well appearing. Will discharge with PCP follow-up. Return precautions given. By: Anthony Honeycutt MD Final diagnoses: Viral syndrome Anthony Honeycutt MD 04/23/227 IER * Marci Madison RN - 04/23/2022 6:47 AM CST Pt reports sore throat, cough, green sputum, runny nose and congestion x 2 weeks IER documented in this encounter Plan of Treatment Not on file documented as of this encounter Procedures Procedure Name Priority Date/Time Associated Diagnosis Comments XR CHEST 1 VIEW ED 04/23/2022 7:10 AM PUTTIER INFLUENZA A/B, RSV, AND COVID-19 PCR Routine 04/23/2022 6:55 AM PUTTIER documented in this encounter Results * XR Chest 1 View (04/23/2022 7:10 AM PUTTIER) Anatomical Region Laterality Modality Body, Chest N/A Computed Radiogr aphy 04/23/2022 7:13 AM PUTTIER Narrative 04/23/2022 7:13 AM PUTTIER EXAM DESCRIPTION: ?? XR CHEST 1 VIEW REASON FOR STUDY: ?? cough, c/f pna ?? Sore throat, congested cough, runny nose, congestion X 2 weeks ?? TECHNIQUE: ?? Single ??radiographic view of the chest acquired. COMPARISON: ?? Chest radiograph 07/25/2021 FINDINGS: LUNGS/PLEURA: ?? No focal consolidation or pneumothorax. No pleural effusion. HEART/MEDIASTINUM: ?? Heart size is normal. Normal mediastinal and hilar contours. HARDWARE/LINES/TUBES: ?? None. BONES: ?? No acute findings. OTHER: ?? No other significant finding. IMPRESSION: ??No acute cardiopulmonary abnormality. THIS IS AN ELECTRONICALLY VERIFIED FINAL REPORT 04/23/2022 7:13 AM - Electronically signed by ??Jermaine Goldberg M.D., JR: D: ??04/23/2022 7:13 AM T: ??04/23/2022 7:13 AM Report ID: [id number] Reading Location: ??[id number] Procedure Note Jermaine Goldberg MD - 04/23/2022 EXAM DESCRIPTION: XR CHEST 1 VIEW REASON FOR STUDY: cough, c/f pna Sore throat, congested cough, runny nose, congestion X 2 weeks TECHNIQUE: Single radiographic view of the chest acquired. COMPARISON: Chest radiograph 07/25/2021 FINDINGS: LUNGS/PLEURA: No focal consolidation or pneumothorax. No pleuraleffusion. HEART/MEDIASTINUM: Heart size is normal. Normal mediastinal and hilar contours. HARDWARE/LINES/TUBES: None. BONES: No acute findings. OTHER: No other significant finding. IMPRESSION: No acute cardiopulmonary abnormality. THIS IS AN ELECTRONICALLY VERIFIED FINAL REPORT 04/23/2022 7:13 AM - Electronically signed by Jermaine Goldberg M.D. JR: Report ID: [id number] Reading Location: [place] [address] Anthony Honeycutt MD IMG XR PROCEDURES F inal Result * Influenza A/B, RSV, and COVID-19 PCR Nasopharyngeal (04/23/2022 6:55 AM PUTTIER) COVID-19 RNA Negative Negative [facility] Influenza A RNA Negative Negative [facility]) Influenza B RNA Negative Negative [facility] ([place]) RSV RNA Negative Negative [facility] ([place]) Comment: Interpretive data: This test is performed using the [employer] Xpert Xpress CoV-2/Flu/RSV plus assay. This is [...] infection. Interpretive Data last revised 2021. Nasopharyngeal 04/23/2022 6: 55 AM PUTTIER 04/23/2022 6:57 AM PUTTIER Narrative [facility] ([place]) - 04/23/2022 7:36 AM PUTTIER Is the Patient experiencing symptoms consistent with COVID?->Yes Date of Symptom Onset->04/09/22 Reason for testing?->Likely to be discharged Known exposure to confirmed or suspected COVID-19 case?->No Is the patient experiencing any symptoms consistent with COVID (eg. Fever, cough, shortness of breath)?->Yes What is the reason for testing?->Likely to be discharged??(Batched) Anthony Honeycutt MD LAB MICROBIOLOGY - GENERAL ORDERABLES Final Result [facility] [place]) 1 [facility] Department of Laboratories [place], [place] [id number] documented in this encounter Visit Diagnoses Diagnosis Viral syndrome- Primary Unspecified viral infection, in conditions classified elsewhere and of unspecified site documented in this encounter Administered Medications Inactive Administered Medications - up to 3 most recent administrations Medication Order MAR Action Action Date Dose Rate Site albuterol HFA (PROVENTIL HFA,VENTOLIN HFA,PROAIR HFA) 90 mcg/actuation inhaler 2 puff 2 puff, inhalation, Once (wheelchair van operator first responder), On 04/23/22 at 0710, For 1 dose Given 04/23/2022 7:23 AM PUTTIER 2 puffs dexAMETHasone (DECADRON) tablet 10 mg 10 mg, oral, Once, On 04/23/22 at 0708, For 1 dose Given 04/23/2022 7:11 AM PUTTIER 10 mg documented in this encounter Active and Recently Administered Medications Times are shown in PUTTIER. Scheduled Medication Order 04/21/2022 04/22/2022 04/23/2022 albuterol HFA (PROVENTIL HFA,VENTOLIN HFA,PROAIR HFA) 90 mcg/actuation inhaler 2 puff (COMPLETED) 2 puff, inhalation, Once (wheelchair van operator first responder), On 04/23/22 at 0710, For 1 dose 0723 (Given - Provid er: Remedios Crews RRT) dexAMETHasone (DECADRON) tablet 10 mg (COMPLETED) 10 mg, oral, Once, On 04/23/22 at 0708, For 1 dose 0711 (Given - Provid er: Layne Calderon RN) documented in this encounter Additional Health Concerns Infection Onset Date Last Indicated Resolved Time COVID: Suspected 04/23/2022 04/23/2022 04/23/2022 7:37 AM PUTTIER documented as of this encounter Care Teams Rivet Machine Operator Relationship Specialty [place] [address] [address] [address] PCP - General 07/04/19 [place] [address] [address] [address] 11/16/18 Ernie Shaw MD [address] [place] [address] [address] [place] [address] Hair Boiler Operator Obstetrics and Gynecology 06/10/20 documented as of this encounter
--- OUTSIDE RECORDS SUMMARY | 2024-02-24 19:59 | XMS_ITS | Encounter Summary ---
Author Organization [facility] Address [address] [place] [address] Care Team Providers Care Full Stack Engineer Name Role Phone Huseyin Dangelo MD Unavailable [phone] Brian Mon MD Primary Care Provider + Ernie Shaw MD Unavailable [phone] Reason for Visit * Reason Comments URI Fatigue,ear pain,pos tnasal drip,nasal d/c,sinus pressure,sore throat,productive cough,diarrhea and body aches x 5 days Encounter Details Date Type Department Care Team (Late st Contact Info) Description 04/21/2022 1:45 PM [facility] Office Visit [facility] [address] [place] [address] [place] [address] Jane Rosales, ACCOUNT SUPPORT SPECIALIST [address] [place] [address] Sore throat (Primary Dx); Acute viral syndrome Social History Tobacco Use Types Packs/Day Years [...] and Family Not on file 01/01/2021 Attends Cheondoism Services Not on file 01/01 Active Member [...] in a [facility] (including now)? No 01/01/2021 [place] Depression Scale Answer Date Recorded [place] Depression Scale Total 11 01/11/2021 The thought [...] Reading Time Taken Comments Blood Pressure 122/80 04/21/2022 1:36 PM CHHA Pulse 71 04/21/2022 1:36 PM CHHA Temperature 36.6 ??C (97.9 ??F) 04/21/2022 1:36 PM CS T Respiratory Rate 16 04/21/2022 1:36 PM CHHA Oxygen Saturation 97% 04/21/2022 1:36 PM CHHA Inhaled Oxygen Concentration - - Weight 79.4 kg (175 lb) 04/21/2022 1:36 PM CHHA Height - - Body Mass Index 32.04 03/23/2022 12:49 PM CHHA documented in this encounter Patient Instructions * Patient Instructions* Jane Rosales NP - 04/21/2022 1:45 PM CHHA Swabbed for COVID-19 today in clinic. Test result was negative. Advised that this result may change, and to continue isolation until symptoms are gone. Flu A B andstrep negative too. No signs of bacterial infection were noted. Importance of hydration for healthy immune system discussed. Increase water intake Try Sudafed to relieve ear pressure Add Emergen-C with Zinc Call to your Lupus specialist if symptoms continue. As per your urgent care visit 04/18: Take the Prednisone 10mg tabs instead of the 5mg tabs every morning next 5 days with food. Continue safe practices of social distancing and mask wearing where appropriate - such as high riskareas. Follow up as needed. documented in this encounter Progress Notes * Jane Rosales NP - 04/21/2022 1:45 PM CST Images from the original note were not included. Subjective/Objective Patient ID: Carito Madison is a 31 y.o. female. Chief Complaint URI (Fatigue,ear pain,postnasal drip,nasal d/c,sinus pressure,sore throat,productive cough,diarrheaand body aches x 5 days) Carito is here today with multiple symptoms. Lost her voice 1st symptomns.Tired, sinus pressure. Taking Dayquil abd Nyquil, using saline rinses and Flonase, Robitussin with little relief. Says she went to urgent care 04/18 and got an inhaler and CXR . Was ordered Prednisone 10mg but resists doing that, hoping that she could take an antibiotic instead. Hx of SLE and on Plaquenil and Tbthvzilnz4nd daily- maintenance doses. Has been on 60 mg daily for months in the past. URI Associated symptoms include diarrhea, ear pain, headaches, rhinorrhea and a sore throat. Pertinent negatives include no abdominal pain, chest pain, congestion, coughing, nausea, shortness of breath or vomiting. Review of Systems Constitutional: Positive for appetite change and fatigue. Negative for fever. HENT: Positive for ear pain, rhinorrhea and sore throat. Negative for congestion. Respiratory: Negative for cough, chest tightness and shortness of breath. Cardiovascular: Negative for chest pain. Gastrointestinal: Positive for diarrhea. Negative for abdominal pain, nausea and vomiting. Musculoskeletal: Positive for myalgias. Skin: Negative for color change. Neurological: Positive for headaches. Negative for dizziness. Hematological: Negative for adenopathy. Psychiatric/Behavioral: Negative for confusion. Physical Exam Constitutional: General: She is not in acute distress. HENT: Ears: Comments: TMs are white and intact without light reflex Nose: No congestion or rhinorrhea. Eyes: Conjunctiva/sclera: Conjunctivae normal. Cardiovascular: Rate and Rhythm: Regular rhythm. Heart sounds: Normal heart sounds. Pulmonary: Effort: No respiratory distress. Breath sounds: No wheezing, rhonchi or rales. Abdominal: Palpations: Abdomen is soft. Lymphadenopathy: Cervical: No cervical adenopathy. Skin: Findings: No rash. Neurological: Mental Status: She is alert. Psychiatric: Behavior: Behavior normal. Vitals: 04/21/22 1336 BP: 122/80 Pulse: 71 Resp: 16 Temp: 36.6 ??C (97.9 ??F) SpO2: 97% Weight: 79.4 kg (175 lb) Assessment/Plan Swabbed for COVID-19 today in clinic. Test result was negative. Advised that this result may change, and to continue isolation until symptoms are gone. Flu A B andstrep negative too. No signs of bacterial infection were noted. Importance of hydration for healthy immune system discussed. Increase water intake Try Sudafed to relieve ear pressure Add Emergen-C with Zinc Call to your Lupus specialist if symptoms continue. As per your urgent care visit 04/18: Take the Prednisone 10mg tabs instead of the 5mg tabs every morning next 5 days with food. Continue safe practices of social distancing and mask wearing where appropriate - such as high riskareas. Follow up as needed. Diagnoses and all orders for this visit: Sore throat (Primary) - POC Influenza A/B, COVID-19 antigen - POCT rapid strep A Acute viral syndrome Disposition- Discussed medications dosages, usage & potential side effects. Risks and interactions reviewed with patient. Indications for testing reviewed. Patient has been instructed to follow up w PCP or go to ER for any signs or symptoms that are of concern or worsening. Patient verbalizes understanding. The patient was given the opportunity to ask all questions and to have all questions answered. Patient is in agreement with the plan of care Jane Rosales NP documented in this encounter Plan of Treatment Not on file documented as of this encounter Procedures Procedure Name Priority Date/Time Associated Diagnosis Comments POC INFLUENZA A/B, COVID-19 ANTIGEN Routine 04/21/2022 1:55 PM CHHA Sore throat POCT RAPID STREP Routine 04/21/2022 1:53 PM CHHA Sore throat documented in this encounter Results * POC Influenza A/B, COVID-19 antigen (04/21/2022 1:55 PM CHHA) Influenza A Ag, POC Negative Negative [facility] Influenza B Ag, POC Negative Negative [facility] COVID-19 Ag POC Presumptive Negative Presumptive Negative, Invalid [facility] Nasal 04/21/2022 1:55 PM [facility] Jane Rosales ACCOUNT SUPPORT SPECIALIST POINT OF CARE TEST ORDERABLES Final Result [facility] [address] [place] [address] [place] [address] * POCT rapid strep A (04/21/2022 1:53 PM CHHA) Rapid Strep A, POC Negative Swab 04/21/2022 1:53 PM [facility] Jane Rosales ACCOUNT SUPPORT SPECIALIST POINT OF CARE TEST ORDERABLES Final Result documented in this encounter Visit Diagnoses Diagnosis Sore throat- Primary Acute pharyngitis Acute viral syndrome documented in this encounter Additional Health Concerns Infection Onset Date Last Indicated Resolved Time COVID: Suspected 04/21/2022 04/21/2022 04/21/2022 1:56 PM CHHA documented as of this encounter Care Teams Full Stack Engineer Relationship Specialty [place] [address] [address] [address] PCP - General 07/04/19 [place] [address] [address] [address] 11/16/18 Ernie Shaw MD [address] [place] [address] [address] [place] [address] Wall Covering Installer Obstetrics and Gynecology 06/10/20 documented as of this encounter
--- OUTSIDE RECORDS SUMMARY | 2024-02-24 19:59 | XMS_ITS | Encounter Summary ---
Author Organization [facility] Address [address] [place] [address] Care Team Providers Care Conference Assistant Name Role Phone Huseyin Dangelo MD Unavailable [phone] Brian Mon MD Primary Care Provider + Ernie Shaw MD Unavailable [phone] Reason for Visit * Reason Comments Cough At least three days or more Fatigue Anorexia Nasal Congestion Encounter Details Date Type Department Care Team (Late st Contact Info) Description 07/16/2021 8:15 AM CDT Office Visit [address] [place] [address] Jane Rosales, TAPE TRANSFERRER [address] [place] [address] Cough productive of purulent sputum (Primary Dx); Cough Social History Tobacco Use Types Packs/Day [...] and Family Not on file 01/01/2021 Attends Yazidism Services Not on file 01/01 Active Member [...] place to sleep or slept in a fci (including now)? No 01/01/2021 [place] Depression Scale Answer Date Recorded [place] Depression Scale Total 11 01/11/2021 The [...] Reading Time Taken Comments Blood Pressure 120/78 07/16/2021 8:19 AM CDT Pulse 82 07/16/2021 8:19 AM CDT Temperature 36.7 ??C (98 ??F) 07/16/2021 8:19 AM CDT Respiratory Rate 18 07/16/2021 8:19 AM CDT Oxygen Saturation 98% 07/16/2021 8:19 AM CDT Inhaled Oxygen Concentration - - Weight 79.4 kg (175 lb) 07/16/2021 8:19 AM CDT Height 160 cm (5' 3 ) 07/16/2021 8:19 AM CDT Body Mass Index 31 07/16/2021 8:19 AM CDT documented in this encounter Patient Instructions * Patient Instructions* Jane Rosales NP - 07/16/2021 8:59 AM CDT Swabbed for COVID-19 today in clinic. Test result was negative. Advised that this result may change, and to continue isolation until symptoms are gone. Importance of hydration for healthy immune system discussed. Continue safe practices of social distancing and mask wearing where appropriate - such as high riskareas. Complete any medications prescribed-Doxycycline all ten days You may take a cough suppressant to calm your cough (dayquil, delsym, or nyquil) If your cough is productive or you have tight chest congestion with thick mucus- you can use a cough expectorant like Mucinex Benadryl/Zyrtec can be used to dry up a runny nose, Sudafed can help with nasal congestion-but may make you nervous Drink plenty of fluids and get plenty of rest Hot tea with honey can help cough Humidifier/Vaporizer Tylenol/Motrin for pain/fever If you are not better in the next 5 days, follow up w PCP. documented in this encounter Ordered Prescriptions Prescription Sig Dispense Quantity Refills Last Filled Start Date End Date doxycycline (VIBRAMYCIN) 100 mg capsuleIndications: Cough productive of purulent sputum Take 1 tablet/caps ule (100 mg total) by mouth 2 (two) times a day for 10 days 20 tablet/capsule 07/16/2021 07/26/2021 documented in this encounter Progress Notes * Jane Rosales, TAPE TRANSFERRER - 07/16/2021 8:15 AM CDT Images from the original note were not included. Patient ID: Carito [place] is a 31 y.o. female followed by Brian Mon MD Patient was wearing the following PPE: mask. MA was wearing the following PPE: mask, gown, gloves. Provider was wearing the following PPE: mask, gown, gloves. Chief Complaint Patient presents with ??? Cough At least three days or more ??? Fatigue ??? Anorexia ??? Nasal Congestion Sick for 3 weeks, and now cough productive of thick green mucous. Has an inhaler but doesn't like to use it, it makes her cough worse. Taking Zyrtec, Nyquil, Ibuprofen ands Tylenol with some relief of symptoms. Patient presents to clinic for assessment of Chief Complaint Patient presents with ??? Cough At least three days or more ??? Fatigue ??? Anorexia ??? Nasal Congestion . Patient reports DRY COUGH, PRODUCTIVE COUGH, NASAL CONGESTION, NASAL DRAINAGE and FATIGUE Patient reports this has been going on for 21 days, since her last office visit here. Patient with sick or suspected COVID-19 contacts: Yes exposed 07/13/21 Patient has following risks for COVID-19: Patient is immunosuppressed, Patient has chronic lung disease and Patient has chronic kidney disease Review of Systems Constitutional: Positive for appetite change (loss) and fatigue. Negative for fever. HENT: Positive for congestion, postnasal drip and rhinorrhea. Negative for sore throat. Respiratory: Positive for cough. Negative for chest tightness and shortness of breath. Cardiovascular: Negative for chest pain. Gastrointestinal: Negative for abdominal pain, diarrhea, nausea and vomiting. Skin: Negative for color change. Neurological: Negative for dizziness. Hematological: Negative for adenopathy. Psychiatric/Behavioral: Negative for confusion. Current Outpatient Medications Medication Sig Dispense Refill ??? acetaminophen 500 mg capsule Take 2 capsules (1,000 mg total) by mouth every 6 (six) hours (Patient not taking: No sig reported) 30 tablet 0 ? ? al & mag hydroxide with nzwphiflefz-zwafsutljdeyack-avmkwctuo (MAGIC MOUTHWASH) suspension 1-1-1 Swish and swallow 10 mL every 4 (four) hours as needed (oral ulcers) (Patient not taking: No sig reported) 300 mL 0 ??? cyclobenzaprine (FLEXERIL) 5 mg tablet Take 1 tablet (5 mg total) by mouth 3 (three) times a day as needed for muscle spasms (Patient not taking: No sig reported) 30 tablet 0 ??? doxycycline (VIBRAMYCIN) 100 mg capsule Take 1 tablet/capsule (100 mg total) by mouth 2 (two) times a day for 10 days 20 tablet/capsule 0 ??? fluconazole (DIFLUCAN) 150 mg tablet (Patient not taking: No sig reported) ??? hydrocortisone (ANUSOL-HC) 2.5 % rectal cream Insert 1 applicator rectally 1-2 times daily as needed when hemorrhoids are flared up. (Patient not taking: No sig reported) 30 g 5 ??? hydrOXYchloroQUINE (PLAQUENIL) 200 mg tablet Take 2 tablets (400 mg total) by mouth daily (Patient not taking: No sig reported) 60 tablet 5 ??? lidocaine viscous (XYLOCAINE) 2 % solution Apply 10 mL to the mouth or throat 3 (three) times aday as needed (for mouth/dental pain) Spit out after use. Do not swallow. 100 mL 0 ??? norgestimate-ethinyl estradioL (ORTHO-CYCLEN) 0.25-35 mg-mcg per tablet Take 1 tablet by mouth daily (Patient not taking: No sig reported) 28 tablet 0 ??? pantoprazole DR (PROTONIX) 40 mg EC tablet Take 1 tablet (40 mg total) by mouth daily 30 [id number] ??? PNV with jgtmrzd-qfyc-YU 27 mg iron- 1 mg tablet Take 1 tablet by mouth daily (Patient not taking: No sig reported) 30 tablet 1 ??? predniSONE (DELTASONE) 2.5 mg tablet TAKE 1 TABLET (2.5 MG) BY MOUTH DAILY TOTAL DOSE OF 7.5 MGDAILY 60 tablet 0 ??? promethazine-DM (PROMETHAZINE-DM) 1.25-3 mg/mL syrup Take 5 mL by mouth 4 (four) times a day asneeded for cough (And runny nose) Collaborating physician Jorge Arriaga MD (Patient not taking: Reported on 06/23/2021) 118 mL 0 ??? sertraline (ZOLOFT) 25 mg tablet ??? simethicone (MYLICON) 80 mg chewable tablet Take 1 tablet (80 mg total) by mouth 4 (four) timesa day as needed for flatulence (Patient not taking: No sig reported) 30 tablet 0 ??? valACYclovir (VALTREX) 500 mg tablet (Patient not taking: Reported on 06/23/2021) No current facility-administered medications for this visit. Past Medical History: Diagnosis Date ??? Anemia ??? Anxiety ??? Anxiety disorder currently on no meds ??? Asthma never hospitalized/intubated. albuterol as needed ??? Chronic diarrhea ??? Chronic kidney disease lupus nephritis ??? Depression ??? Headache, tension-type ??? Lupus (CMS/HCC) (HCC) ??? PONV (postoperative nausea and vomiting) ??? 07/13/2015 ??? Rheumatoid arthritis (HCC) ??? Seizures (CMS/HCC) (HCC) reaction to a medication Immunization History Administered Date(s) Administered ??? Pfizer SARS-CoV-2 Vaccination (12+ yrs) PURPLE 05/20/2020, 05/20/2020, 10/12/2020, 10/12/2020 ??? Tdap 12/01/2018, 11/23/2020 Social History Tobacco Use Smoking Status Former Smoker ??? Quit date: 12/28/2018 ??? Years since quittin.5 Smokeless Tobacco Never Used Vitals: 07/16/21 0819 BP: 120/78 BP Location: Left arm Patient Position: Sitting Pulse: 82 Resp: 18 Temp: 36.7 ??C (98 ??F) TempSrc: Oral SpO2: 98% Weight: 79.4 kg (175 lb) Height: 160 cm (5' 3 ) Physical Exam Constitutional: General: She is not in acute distress. HENT: Right Ear: Tympanic membrane normal. Left Ear: Tympanic membrane normal. Nose: Congestion present. No rhinorrhea. Mouth/Throat: Pharynx: Posterior oropharyngeal erythema present. No oropharyngeal exudate. Eyes: Conjunctiva/sclera: Conjunctivae normal. Cardiovascular: Rate and Rhythm: Regular rhythm. Heart sounds: Normal heart sounds. Pulmonary: Effort: No respiratory distress. Breath sounds: No wheezing, rhonchi or rales. Abdominal: Palpations: Abdomen is soft. Lymphadenopathy: Cervical: No cervical adenopathy. Skin: Findings: No rash. Neurological: Mental Status: She is alert. Psychiatric: Behavior: Behavior normal. Assessment/Plan Swabbed for COVID-19 today in clinic. Test result was negative. Advised that this result may change, and to continue isolation until symptoms are gone. Importance of hydration for healthy immune system discussed. Continue safe practices of social distancing and mask wearing where appropriate - such as high riskareas. Complete any medications prescribed-Doxycycline all ten days You may take a cough suppressant to calm your cough (dayquil, delsym, or nyquil) If your cough is productive or you have tight chest congestion with thick mucus- you can use a cough expectorant like Mucinex Benadryl/Zyrtec can be used to dry up a runny nose, Sudafed can help with nasal congestion-but may make you nervous Drink plenty of fluids and get plenty of rest Hot tea with honey can help cough Humidifier/Vaporizer Tylenol/Motrin for pain/fever If you are not better in the next 5 days, follow up w PCP. Diagnoses and all orders for this visit: Cough productive of purulent sputum (Primary) - doxycycline (VIBRAMYCIN) 100 mg capsule; Take 1 tablet/capsule (100 mg total) by mouth 2 (two) times a day for 10 days Cough - COVID-19 POC - POCT influenza A/B Discussed COVID testing reasoning Reviewed isolation/quarantine protocols Discussed symptomatic relief of symptoms Discussed need to return to ER for further evaluation including worsening fevers, shortness of breath, of other concerning symptoms Advised to rest and stay adequately hydrated Orders Placed This Encounter Procedures ??? COVID-19 POC Order Specific Question: Is the Patient experiencing symptoms consistent with COVID? Answer: Yes Order Specific Question: Date of Symptom Onset Answer: 07/13/2021 Order Specific Question: Is the patient hospitalized? Answer: No Order Specific Question: Is the patient admitted to an ICU? Answer: No Order Specific Question: Is this the first COVID-19 test for this patient? 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 Answer: No Order Specific Question: Is the patient a resident of a congregate care or living setting? Answer: No Order Specific Question: ? Answer: No ??? POCT influenza A/B documented in this encounter Plan of Treatment Not on file documented as of this encounter Procedures Procedure Name Priority Date/Time Associated Diagnosis Comments POCT INFLUENZA A/B Routine 07/16/2021 8: 53 AM CDT Cough COVID-19 POC Routine 07/16/2021 8:52 AM CDT Cough documented in this encounter Results * POCT influenza A/B (07/16/2021 8:53 AM CDT) Rapid Influenza A Ag Negative Negative, Invalid Rapid Influenza B Ag Negative Negative, Invalid Nasal 07/16/2021 8:53 AM CDT Jane Rosales TAPE TRANSFERRER POINT OF CARE TEST ORDERABLES Final Result * COVID-19 POC (07/16/2021 8:52 AM CDT) COVID-19 Ag POC (BD Veritor) Presumptive Negative Presumptive Negative, Invalid [facility] 07/16/2021 8:52 AM CDT us Jane Rosales TAPE TRANSFERRER POINT OF CARE TEST ORDERABLES Final Result [facility] [address] [place] [address] [place] [address] documented in this encounter Visit Diagnoses Diagnosis Cough productive of purulent sputum- Primary Cough documented in this encounter Additional Health Concerns Infection Onset Date Last Indicated Resolved Time COVID: Suspected 07/16/2021 07/16/2021 07/16/2021 8:54 AM CDT documented as of this encounter Care Teams Conference Assistant Relationship Specialty [place] [address] [place] [place] [address] PCP - General 07/04/19 [place] [address] [address] [address] 11/16/18 Ernie Shaw MD [address] [place] [address] Net Applications Developer Obstetrics and Gynecology 06/10/20 documented as of this encounter
--- OUTSIDE RECORDS SUMMARY | 2024-02-24 19:59 | XMS_ITS | Encounter Summary ---
Author Organization [facility] Address [address] [place] [address] Phone Care Team Providers Care Patient Accounts Specialist Name Role Phone Huseyin Dangelo MD Unavailable [phone] Brian Mon MD Primary Care Provider + Ernie Shaw MD Unavailable [phone] Encounter Details Date Type Department Care Team (Latest Contact Info) Description 09/06/2021 4:20 PM CDT Telemedicine [facility] Endocrinology Metabolism and Lipid [address] [place] [address] [place] [address] Darius Fernandez MD [address] [facility] [address] [place] [address] Adrenal insufficiency (CMS/HCC) (HCC) (Primary Dx) Social History Tobacco [...] and Family Not on file 01/01/2021 Attends Gnosticism Services Not on file 01/01 Active Member [...] in a longterm (including now)? No 01/01/2021 [place] Depression Scale Answer Date Recorded [place] Depression Scale Total 11 01/11/2021 The thought [...] as of this encounter Progress Notes * Francois Fernandez MD - 09/06/2021 4:20 PM CDT Endocrine Patient Visit This was a telemedicine visit with Carito anglin which took place via real-time video connection with Zoom. During the visit, I was located in the office and the patient was located at workin the [facility]. The patient visit started at 4:30 PM and ended at 4:45 PM. My total encounter time on 09/06/2021 was 25 minutes which was spent in the activities documented in the note. This includes time spent prior to the visit and after the visit in direct care of the patient. This time does not include time spent in any separately reportable services.. The patient has been informed that the visit may not be secure and acknowledged the information. I have explained the option of participating in a telephone or video visit during the [facility] public health emergency to the patient. After being given an opportunity to ask questions about and discuss this type of visit, the patient verbally consented to proceeding with the telephone/video visit.The patient understands that this service replaces an office visit and they may be billed and/or responsible for any applicable copayments. Referring provider: Griffin Burr MD Chief Complaint: Fatigue HPI: Initial visit on 10/24/2019 Patient is a 31 y.o. Lady with history of lupus which has required long term acute care registered nurse steriod use for 2.5 years. Has required high dose in the past up to 60 mg daily. 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 She is currently on 5 mg of prednisone. Her main concern is low sex drive. Review of Systems Review of systems per HPI and otherwise all other systems are negative. OBJECTIVES Physical exam: There were no vitals taken for this visit. Past Medical History: Diagnosis [...] in a hospital admission) Allergies Allergen Reactions ??? Macrobid [Nitrofurantoin Monohyd/M-Cryst] Rash and Blisters Rash and Blisters in her mouth. ??? Methylprednisolone Anaphylaxis and Syncope Syncope ??? Penicillins Hives and Rash Prescribed keflex 08/2020 ??? Amoxicillin Rash Prescribed keflex in 08/2020 ??? Azathioprine Hives ??? Clindamycin Rash ??? Escitalopram Other (See comments) and Rash Caused seizures Caused seizures Caused seizures ??? Reglan [Metoclopramide] Dizziness ??? Sulfamethoxazole-Trimethoprim Other (See comments) Cannot take bactrim because of lupus ??? Venlafaxine Itching Social History Tobacco Use ??? Smoking status: Former Smoker Quit date: 12/28/2018 Years since quittin.9 ??? Smokeless tobacco: Never Used Substance Use Topics ??? Alcohol use: Yes Comment: occasionally Family History Problem Relation Age of Onset ??? Gout Mother ??? Diabetes Mother ??? Hypertension Mother ??? Heart disease Father ??? Stroke Father ??? Colon cancer Other Labs: Cosyntropin stimulation test: Results for CARITO [place] ( ) as of 06/22/2020 17:50 [...] brain and brainstem without and with contrast ?? HISTORY: Seizures. ?? TECHNIQUE: Multiplanar multi-weighted MRI of the brain and brainstem was performed without and with intravenous contrast using the seizure protocol. This included detailed imaging of the hippocampi and temporal lobes. ?? Contrast information: 15 mL Dotarem ?? COMPARISON: None available. Head CT dated 06/25/2019 was reviewed. ?? FINDINGS: ?? There is no evidence of heterotopia, vascular malformation, tumor, or infarct. The hippocampi are symmetric in size and signal. ?? The scalp and calvarium are normal. The superior sagittal sinus demonstrates normal venous flow. The corpus callosum is normal in shape and signal intensity. The posterior fossa is unremarkable. The pituitary and sella are normal. The brainstem and craniocervical junction are unremarkable. ?? The susceptibility weighted sequences reveal no evidence of acute or chronic hemorrhage. The ventricles are normal in size and position without evidence of hydrocephalus. ?? There are no areas of abnormal contrast enhancement. ?? The paranasal sinuses are normal. The visualized portions of the mastoids are unremarkable. The orbits appear normal. Normal flow voids are demonstrated in the carotid arteries and basilar artery. ?? IMPRESSION: No findings to explain the patient's seizures. Assessment/Plan: Patient is a 31 y.o. Lady with history of lupus which has required halfway steriod use for 2.5 years. Has required high Dose in the past up to 60 mg daily. 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 Current prednisone dose is 5 mg daily. Plan: Will check 8 AM cortisol, DHEA-s and ACTH level. Francois Fernandez MD Division of Endocrinology, Metabolism and Lipid [facility] documented in this encounter Miscellaneous Notes * Addendum Note - Francois Fernandez MD - 09/06/2021 4:20 PM CDTAddended by: FRANCOIS FERNANDEZ on: 03/11/2022 06:57 PM Modules accepted: Orders OR PRODUCTION MANAGER documented in this encounter Plan of Treatment Not on file documented as of this encounter Results * (ABNORMAL) DHEA-sulfate (03/24/2022 8:18 AM SENIOR PRODUCTION MANAGER) DHEA-S 11.0(L) 98.8 - 340.0 mcg/dL [facility] ([facility]) Comment:Testing performed by : [facility], [address] [place]., [address] Blood 03/24/2022 8:18 AM SENIOR PRODUCTION MANAGER 03/24/2022 2:31 PM SENIOR PRODUCTION MANAGER us Darius Fernandez MD LAB BLOOD ORDERABLES Final Resul t [facility] ([place]) [address] [facility] [place] [address] * ACTH (03/24/2022 8:18 AM SENIOR PRODUCTION MANAGER) Pathologist [facility] ACTH 13.3 7.0 - 63.0 pg/mL [facility] ([place]) Comment:Testing performed by : [facility], [address] [place]., [address] Blood 03/24/2022 8:18 AM SENIOR PRODUCTION MANAGER 03/24/2022 2:31 PM SENIOR PRODUCTION MANAGER us Darius Fernandez MD LAB BLOOD ORDERABLES Final Resul t [facility] ([place]) [address] [place] [address] [place] [address] * Cortisol (03/24/2022 8:18 AM SENIOR PRODUCTION MANAGER) Cortisol 5.0 4.8 - 19.5 mcg/dl [facility] ([place]) Comment: Interpretive Data Normal Range: ??4.8 - 19.5 mcg/dL; ??Evening: ??Half of morning value. ?? This analyte undergoes marked diurnal variation. ??Ranges indicated apply to morning specimens. ?? Current interpretive data was last revised 2018. Testing performed by: [facility], [address] [place] [address] [place]., [address] Blood 03/24/2022 8:18 AM SENIOR PRODUCTION MANAGER 03/24/2022 11:18 AM SENIOR PRODUCTION MANAGER us Darius Fernandez MD LAB BLOOD ORDERABLES Final Resul t [facility] ([place]) [address] [facility] Department [place] [address] documented in this encounter Visit Diagnoses Diagnosis Adrenal insufficiency (HCC)- Primary Glucocorticoid deficiency documented in this encounter Historical Medications * This list may reflect changes made after this encounter. sertraline (ZOLOFT) 25 mg tablet Take 1 tablet (25 mg total) by mouth daily 08/21/2021 ergocalciferol (VITAMIN D) 50,000 unit capsule TAKE 1 CAPSULE EVERY WEEK BY ORAL ROUTE. 08/07/2021 03/16/2022 traZODone (DESYREL) 50 mg tablet TAKE 1/2-1 TABLET BY MOUTH AT NIGHT FOR SLEEP/ANXIETY 08/11/2021 03/16/2022 added in this encounter Additional Health Concerns Infection Onset Date Last Indicated Resolved Time COVID: Suspected 09/30/2021 09/30/2021 09/30/2021 11:06 PM CDT documented as of this encounter Care Teams Patient Accounts Specialist Relationship Specialty [place] [address] [address] [place] [address] PCP - General 07/04/19 [place] [address] [address] [place] [address] 11/16/18 Ernie Shaw MD [address] [place] [address] [address] [place] [address] New Car Inspector Obstetrics and Gynecology 06/10/20 documented as of this encounter
--- OUTSIDE RECORDS SUMMARY | 2024-02-24 19:59 | XMS_ITS | Encounter Summary ---
Author Organization [facility] Address [address] [place] [address] Care Team Providers Care Terminal Press Operator Name Role Phone Huseyin Dangelo MD Unavailable [phone] Brian Mon MD Primary Care Provider + Ernie Shaw MD Unavailable [phone] Reason for Visit * Reason Comments Sick Visit Patient presents tod ay with complaints of nasal drainage/congestion, chest congestion, body aches, headaches, bilateral ear pain, chills. SX onset 03/21. Encounter Details Date Type Department Care Team (Late st Contact Info) Description 03/23/2022 12:45 PM FLUE GAS ANALYST Office Visit [facility] [address] [place] [address] Cari Berrios NP [address] [address] Non-recurrent acute suppurative otitis media of both ears without spontaneous rupture of tympanic membranes (Primary Dx); Body aches; Antibiotic-induced yeast infection Social History Tobacco Use Types Packs/Day Years [...] and Family Not on file 01/01/2021 Attends Buddhism Services Not on file 01/01 Active Member [...] place to sleep or slept in a jail (including now)? No 01/01/2021 Crocker Depression Scale Answer Date Recorded Crocker Depression Scale Total 11 01/11/2021 The thought [...] Sign Reading Time Taken Comments Blood Pressure 90/54 03/23/2022 12:49 PM FLUE GAS ANALYST Pulse 87 03/23/2022 12:49 PM FLUE GAS ANALYST Temperature 36.2 ??C (97.1 ??F) 03/23/2022 1 2:49 PM FLUE GAS ANALYST Respiratory Rate 20 03/23/2022 12:4 9 PM FLUE GAS ANALYST Oxygen Saturation 98% 03/23/2022 12: 49 PM FLUE GAS ANALYST Inhaled Oxygen Concentration - - Weight 81.1 kg (178 lb 12.8 oz) 023 12:49 PM FLUE GAS ANALYST Height 157.4 cm (5' 1.97 ) 03/23/2022 1 2:49 PM FLUE GAS ANALYST Body Mass Index 32.74 03/23/2022 12:49 PM FLUE GAS ANALYST documented in this encounter Patient Instructions * Patient Instructions* Cari Berrios NP - 03/23/2022 12:45 PM FLUE GAS ANALYST The treatment for ear infections (otitis media) may include any of the following: Take antibiotics as prescribed until they are gone. Take Tylenol or Motrin as directed for fever and/or discomfort. A warm (not hot) heating pad held over the ear can also help relieve the pain from the earache. Youshould use a thin cloth such as a dry washcloth between your skin and the heating pad. Follow up with your Primary Care Physician in 2 weeks for ear recheck or sooner if symptoms worsen or are not improving as planned. GAS ANALYST documented in this encounter Ordered Prescriptions Prescription Sig Dispense Quantity Refills Last Filled Start Date End Date fluconazole (DIFLUCAN) 150 mg tabletIndications: Antibiotic-induced yeast infection Take 1 tablet (150 mg total) by mouth as directed Take one tab now. Repeat in 7 days if symptoms persist. 2 tablet 03/23/2022 4 cefdinir (OMNICEF) 300 mg capsuleIndications :Non-recurrent acute suppurative otitis media of both ears without spontaneous rupture of tympanic membranes Take 1 capsule (300 mg total) by mouth 2 (two) times a day for 10 days 20 capsule 03/23/2022 3 documented in this encounter Progress Notes * Cari Berrios, SPACE ENGINEER - 03/23/2022 12:45 PM CST Images from the original note were not included. Subjective/Objective Patient ID: Carito Madison is a 31 y.o. female. Chief Complaint Sick Visit (Patient presents today with complaints of nasal drainage/congestion, chest congestion, body aches, headaches, bilateral ear pain, chills. SX onset 03/21.) Patient presents to the [facility] with a two day history of nasal drainage/congestion,chest congestion, body aches, headache, bilateral ear pain, and chills. She has taken Flonase, Dayquil/Nyquil, Tylenol and Motrin OTC for her symptoms. Review of Systems Constitutional: Positive for chills. Negative for activity change, appetite change, fatigue and fever. HENT: Positive for congestion, ear pain, postnasal drip and rhinorrhea. Negative for ear discharge,sinus pressure and sore throat. Eyes: Negative for discharge. Respiratory: Negative for cough and shortness of breath. Gastrointestinal: Negative for diarrhea, nausea and vomiting. Musculoskeletal: Positive for myalgias. Skin: Negative for rash. Neurological: Positive for headaches. Hematological: Negative for adenopathy. Physical Exam Vitals reviewed. Constitutional: General: She is not in acute distress. Appearance: Normal appearance. She is well-developed. She is not ill-appearing. HENT: Head: Normocephalic. Right Ear: Ear canal and external ear normal. Tympanic membrane is erythematous and bulging. Left Ear: Ear canal and external ear normal. Tympanic membrane is erythematous and bulging. Nose: Congestion and rhinorrhea present. Right Sinus: Maxillary sinus tenderness and frontal sinus tenderness present. Left Sinus: Maxillary sinus tenderness and frontal sinus tenderness present. Mouth/Throat: Lips: [place]bitt. Mouth: Mucous membranes are moist. Pharynx: Oropharynx is clear. Posterior oropharyngeal erythema present. Tonsils: Tonsillar exudate present. 2+ on the right. 3+ on the left. Eyes: General: Right eye: No discharge. Left eye: No discharge. Conjunctiva/sclera: Conjunctivae normal. Cardiovascular: Rate and Rhythm: Normal rate and regular rhythm. Pulmonary: Effort: Pulmonary effort is normal. No respiratory distress. Breath sounds: Normal breath sounds and air entry. Abdominal: Tenderness: There is no abdominal tenderness. Musculoskeletal: General: Normal range of motion. Cervical back: Neck supple. Lymphadenopathy: Head: Right side of head: No tonsillar adenopathy. Left side of head: No tonsillar adenopathy. Cervical: No cervical adenopathy. Skin: General: Skin is warm and dry. Findings: No rash. Neurological: Mental Status: She is alert and oriented to person, place, and time. Mental status is at baseline. Psychiatric: Attention and Perception: Attention normal. Mood and Affect: Mood normal. Behavior: Behavior normal. Behavior is cooperative. Thought Content: Thought content normal. Judgment: Judgment normal. Vitals: 03/23/22 1249 BP: 90/54 BP Location: Right arm Patient Position: Sitting Pulse: 87 Resp: 20 Temp: 36.2 ??C (97.1 ??F) TempSrc: Temporal SpO2: 98% Weight: 81.1 kg (178 lb 12.8 oz) Height: 157.4 cm (5' 1.97 ) Assessment/Plan Antibiotics as prescribed Fluconazole as needed for antibiotic induced yeast infection Tylenol/Motrin as needed for fever/pain Follow up with PCP if symptoms persist or worsen Reviewed ER precautions Diagnoses and all orders for this visit: Non-recurrent acute suppurative otitis media of both ears without spontaneous rupture of tympanic membranes (Primary) - cefdinir (OMNICEF) 300 mg capsule; Take 1 capsule (300 mg total) by mouth 2 (two) times a day for10 days Body aches - POC Influenza A/B, COVID-19 antigen Antibiotic-induced yeast infection - fluconazole (DIFLUCAN) 150 mg tablet; Take 1 tablet (150 mg total) by mouth as directed Take one tab now. Repeat in 7 days if symptoms persist. Recent Results (from the past 4 hour(s)) POC Influenza A/B, COVID-19 antigen Collection Time: 03/23/22 1:10 PM Result Value Ref Range Influenza A Ag, POC Negative Negative Influenza B Ag, POC Negative Negative COVID-19 Ag POC Presumptive Negative Presumptive Negative, Invalid Patient Instructions The treatment for ear infections (otitis media) may include any of the following: Take antibiotics as prescribed until they are gone. Take Tylenol or Motrin as directed for fever and/or discomfort. A warm (not hot) heating pad held over the ear can also help relieve the pain from the earache. Youshould use a thin cloth such as a dry washcloth between your skin and the heating pad. Follow up with your Primary Care Physician in 2 weeks for ear recheck or sooner if symptoms worsen or are not improving as planned. Disposition Treatment plan including expectations, follow up, and return precautions discussed with patient/parent, verbalizes understanding. Medication dosage, use, and potential adverse reactions discussed with patient/parent. Advised to follow up with PCP if symptoms do not resolve as expected or sooner if condition worsens. Signs/symptoms warranting ER evaluation reviewed. Patient and/or guardian was given an opportunity to ask questions, questions answered. Cari Berrios NP GAS ANALYST documented in this encounter Plan of Treatment Not on file documented as of this encounter Procedures Procedure Name Priority Date/Time Associated Diagnosis Comments POC INFLUENZA A/B, COVID-19 ANTIGEN Routine 03/23/2022 1:10 PM FLUE GAS ANALYST Body aches documented in this encounter Results * POC Influenza A/B, COVID-19 antigen (03/23/2022 1:10 PM FLUE GAS ANALYST) Pathologist [facility] Influenza A Ag, POC Negative Negative [facility] Influenza B Ag, POC Negative Negative [facility] COVID-19 Ag POC Presumptive Negative Presumptive Negative, Invalid [facility] Nasal 03/23/2022 1:10 PM FLUE GAS ANALYST us Cari Berrios NP POINT OF CARE TEST ORDERABLES Fi nal Result [facility] [address] [address] documented in this encounter Visit Diagnoses Diagnosis Non-recurrent acute suppurative otitis media of both ears without spontaneous rupture of tympanic membranes- Primary Body aches Generalized pain Antibiotic-induced yeast infection documented in this encounter Discontinued Medications Medication Sig Discontinue Reason Start Date End Da te fluconazole (DIFLUCAN) 150 mg tablet Take 1 tablet daily for 2 days. Therapy completed 07/25/2021 03/23/2022 documented as of this encounter Historical Medications * This list may reflect changes made after this encounter. omeprazole (PriLOSEC) 20 mg capsule Take 1 capsule (20 mg total) by mouth daily added in this encounter Additional Health Concerns Infection Onset Date Last Indicated Resolved Time COVID: Suspected 03/23/2022 03/23/2022 03/23/2022 1:12 PM FLUE GAS ANALYST documented as of this encounter Care Teams Terminal Press Operator Relationship Specialty [place] [id number] [place] [address] PCP - General 07/04/19 [place] [id number] [place] [address] 11/16/18 Ernie Shaw MD [address] [place] [address] [address] [place] [address] Digital Project Manager Obstetrics and Gynecology 06/10/20 documented as of this encounter
--- OUTSIDE RECORDS SUMMARY | 2024-02-24 19:59 | XMS_ITS | Encounter Summary ---
Author Organization [facility] Healthcare Address [address] [place] [address] Care Team Providers Care Senior C Software Developer Name Role Phone Huseyin Dangelo MD Unavailable [phone] Brian Mon MD Primary Care Provider + Ernie Shaw MD Unavailable [phone] Reason for Visit * Reason Comments Abdominal Pain Encounter Details Date Type Department Care Team (Late st Contact Info) Description 12/25/2021 4:31 PM CDT - 12/25/2021 6:00 PM CDT Emergency [facility] Emergency Department [address] [place] [address] Esau Perry MD [address] [place] [id number] Food poisoning (Primary Dx) Discharge Disposition: Discharge to home [...] and Family Not on file 01/01/2021 Attends [employer] Services Not on file 01/01 Active Member [...] a senior living (including now)? No 01/01/2021 [place] Depression Scale Answer Date Recorded [place] Depression Scale Total 11 01/11/2021 The thought [...] Sign Reading Time Taken Comments Blood Pressure 112/78 12/25/2021 5:59 PM CDT Pulse 92 12/25/2021 5:59 PM CDT Temperature 36.7 ??C (98.1 ??F) 12/25/2021 4:40 PM CD T Respiratory Rate 17 12/25/2021 5:59 PM CDT Oxygen Saturation 100% 12/25/2021 5:59 PM CDT Inhaled Oxygen Concentration - - Weight 76.2 kg (168 lb) 12/25/2021 4:40 PM CDT Height 160 cm (5' 3 ) 12/25/2021 4:40 PM CDT Body Mass Index 29.76 12/25/2021 4:40 PM CDT documented in this encounter Discharge Instructions * Discharge Instructions* Esau Perry MD - 12/25/2021 5:49 PM CDT Drink plenty of clear liquids. Follow-up with your primary care doctor. * Attachments The following attachments cannot be sent through Care Everywhere. * Food Poisoning (AfterCare(R) Instructions(ER/ED)) (Armenian) documented in this encounter Medications at Time of Discharge sertraline (ZOLOFT) 25 mg tablet Take 1 tablet (25 mg total) by mouth daily 08/21/2021 valACYclovir (VALTREX) 500 mg tablet 03/09/2021 acetaminophen 500 mg capsuleIndicatio ns:Pain Take 2 capsules (1,000 mg total) by mouth every 6 (six) hours 30 tablet 01/03/2021 3 al & mag hydroxide with simethicone-diph enhydramine-lido candelario (MAGIC MOUTHWASH) suspension 1-1-1 Swish and swallow 10 mL every 4 (four) hours as needed (oral ulcers) 300 mL 12/09/2020 3 benzonatate (TESSALON) 100 mg capsuleIndicatio ns:Cough Take 1 capsule (100 mg total) by mouth 3 (three) times a day as needed for cough 20 capsule 07/25/2021 3 cyclobenzaprine (FLEXERIL) 5 mg tablet Take 1 tablet (5 mg total) by mouth 3 (three) times a day as needed for muscle spasms 30 tablet 01/03/2021 3 ergocalciferol (VITAMIN D) 50,000 unit capsule TAKE 1 CAPSULE EVERY WEEK BY ORAL ROUTE. 08/07/2021 3 fluconazole (DIFLUCAN) 150 mg tablet Take 1 tablet daily for 2 days. 2 tablet 07/25/2021 3 hydrocortisone (ANUSOL-HC) 2.5 % rectal cream Insert 1 applicator rectally 1-2 times daily as needed when hemorrhoids are flared up. 30 g 5 03/04/2021 3 hydrOXYchloroQUI NE (PLAQUENIL) 200 mg tablet TAKE 2 TABLETS BY MOUTH EVERY DAY 60 tablet 1 09/20/2021 2 lidocaine 5 % cream Apply 1 inch topically 2 (two) times a day Apply in anal area twice daily 28 g 1 09/17/2021 3 lidocaine viscous (XYLOCAINE) 2 % solutionIndicati ons:Mouth Irritation Apply 10 mL to the mouth or throat 3 (three) times a day as needed (for mouth/dental pain) Spit out after use. Do not swallow. 100 mL 06/23/2021 3 norgestimate-eth inyl estradioL (ORTHO-CYCLEN) 0.25-35 mg-mcg per tablet Take 1 tablet by mouth daily 28 tablet 03/21/[address] (PROTONIX) 40 mg EC tabletIndication s:Stress Ulcer Prophylaxis Take 1 tablet (40 mg total) by mouth daily 30 tablet 11 01/03/2021 3 PNV with ejrtjbj-ljen-RA 27 mg iron- 1 mg tabletIndication s:Vitamin Deficiency Prevention Take 1 tablet by mouth daily 30 tablet 1 01/04/2021 3 predniSONE (DELTASONE) 5 mg tablet Take 1 tablet (5 mg) by mouth daily 90 tablet 11/16/2021 3 promethazine-DM (PROMETHAZINE-DM ) 1.25-3 mg/mL syrup Take 5 mL by mouth 4 (four) times a day as needed for cough (And runny nose) Collaborating physician Jorge Arriaga MD 118 mL 03/09/2021 3 sertraline (ZOLOFT) 50 mg tablet TAKE 1 AND 1/2 TABLETS(75 MG) BY MOUTH DAILY 45 tablet 1 08/15/2021 3 simethicone (MYLICON) 80 mg chewable tabletIndication s:Flatulence Take 1 tablet (80 mg total) by mouth 4 (four) times a day as needed for flatulence 30 tablet 01/03/2021 3 traZODone (DESYREL) 50 mg tablet TAKE 1/2-1 TABLET BY MOUTH AT NIGHT FOR SLEEP/ANXIETY 08/11/2021 3 documented as of this encounter Discharge Disposition Disposition Code Departure Means Destination Comment s Discharge to home or self care Discharged to self care. No questions at this time. documented in this encounter ED Notes * Esau Perry MD - 12/25/2021 5:48 PM CDT HPI Chief Complaint Patient presents with Abdominal Pain Patient ate a cheese quesadilla at a festival yesterday. Today she had vomiting 20 times . Also having diarrhea. She had some abdominal pain. By the time she got here she was feeling better. She still has some nausea and little headache. She is a little sweaty. 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 Gastrointestinal: Positive for diarrhea, nausea and vomiting. Negative for abdominal pain. Genitourinary: Negative for difficulty urinating. Musculoskeletal: Negative for myalgias. Skin: Negative for rash. Neurological: Negative for dizziness and headaches. Psychiatric/Behavioral: Negative for behavioral problems. Physical Exam ED Triage Vitals Temp Pulse Resp BP SpO2 12/25/21 1627 12/25/21 1627 12/25/21 1627 12/25/21 1627 12/25/21 162 36.4 ??C (97.6 ??F) 97 16 100/84 98 % Temp src Heart Rate Source Patient Position BP Location FiO2 (%) 12/25/21 1640 12/25/21 1640 12/25/21 1640 12/25/21 1640 -- Oral Monitor Lying Right arm Height Height Method Weight Weight Method 12/25/21 16212/25/21 1627 12/25/21 16212/25/211626 1.6 m (5' 3 ) Stated 76.2 kg (168 lb) Stated Physical Exam Vitals and nursing note reviewed. Constitutional: General: She is not in acute distress. Appearance: She is well-developed. Comments: Nonorthostatic HENT: Head: Normocephalic and atraumatic. Eyes: Conjunctiva/sclera: Conjunctivae normal. Cardiovascular: Rate and Rhythm: Normal rate and regular rhythm. Heart sounds: Normal heart sounds. No murmur heard. Pulmonary: Effort: Pulmonary effort is normal. No respiratory distress. Breath sounds: Normal breath sounds. Abdominal: General: Bowel sounds are normal. There is no distension. Palpations: Abdomen is soft. Tenderness: There is no abdominal tenderness. There is no guarding. Musculoskeletal: Cervical back: Neck supple. Skin: General: Skin is warm and dry. Neurological: Mental Status: She is alert and oriented to person, place, and time. Labs Reviewed CBC WITH AUTO DIFFERENTIAL - Abnormal Result Value WBC 7.4 Hgb 11.1 (*) Hct 35.5 (*) Plt 365 MPV 9.5 RBC 4.61 MCV 77.0 (*) MCH 24.1 (*) MCHC 31.3 (*) RDW CV 16.9 (*) RDW SD 45.4 NRBC abs 0.00 COMPREHENSIVE METABOLIC PANEL - Abnormal Sodium 137 Potassium, pl 3.8 Chloride 104 CO2 23 Anion gap 11 BUN 9 Creatinine 0.54 (*) Glucose 99 Calcium 9.4 Bilirubin, total 0.3 Protein, pl 7.8 Albumin 4.6 Alk phos 57 ALT 12 AST 19 DIFFERENTIAL AUTO - Abnormal Neutrophil abs 6.2 Imm gran abs 0.0 Lymphocyte abs 0.7 (*) Monocyte abs 0.4 Eosinophil abs 0.1 Basophil abs 0.0 Neutrophil pct 83.5 Imm gran pct 0.4 Lymphocyte pct 9.9 Monocyte pct 5.1 Eosinophil pct 0.7 Basophil pct 0.4 POCT HCG, URINE - Normal HCG, ur, POC Negative Lot Number [id number] QC Backgroud Clear Acceptable QC Control Line Acceptable MAGNESIUM Magnesium 1.8 HCG, BLOOD, QUANTITATIVE hCG, quant <5.0 EGFR eGFR 128 MDM Medical Decision Making Differential Diagnosis or Management Options: Patient with vomiting and diarrhea. She was feeling better when she arrived here. Summarize history: Labs unremarkable. Nonorthostatic. Patient stable for discharge and she would like to do oral hydration at home. ED Course as of 12/25/211857 Time: 12/25 1857 Value: Hgb(!): 11.1 Comment: Chronic By: Esau Perry MD Final diagnoses: Food poisoning Esau Perry MD 12/25/211858 * Abril Sanchez RN - 12/25/2021 4:26 PM CDT Pt ambulatory to triage with c/o lower abdominal pain, vomiting, and diarrhea (20 times) today. Pt is also on her period. Pt finished z pack for sinus infection last week documented in this encounter Plan of Treatment Not on file documented as of this encounter Procedures Procedure Name Priority Date/Time Associated Diagnosis Comments POCT HCG, URINE STAT 12/25/2021 4:55 PM CDT EGFR STAT 12/25/2021 4:51 PM CDT DIFFERENTIAL AUTO STAT 12/25/2021 4:5 1 PM CDT CBC WITH AUTO DIFFERENTIAL STAT 12/25/2021 4:51 PM CDT HCG, BLOOD, QUANTITATIVE STAT 12/25/2021 4:51 PM CDT MAGNESIUM STAT 12/25/2021 4:51 PM CDT COMPREHENSIVE METABOLIC PANEL STAT 12/25/2021 4:51 PM CDT documented in this encounter Results * POCT hCG, urine (12/25/2021 4:55 PM CDT) HCG, ur, POC Negative Lot Number [id number] QC Backgroud Clear Acceptable QC Control Line Acceptable Urine 12/25/2021 4:55 PM CDT us Anthony Honeycutt MD POINT OF CARE TEST ORDERABLES Final Result * eGFR (12/25/2021 4:51 PM CDT) eGFR 128 mL/min/1. 73 m2 [facility] ([place] Comment: [...] interpretive data was last reviewed 2020. Blood 12/25/2021 4:51 PM CDT 12/25/2021 5:04 PM CDT us Anthony Honeycutt MD LAB BLOOD ORDERABLE S Final Result [facility] ([place]) 1 [facility] [place] [address] * (ABNORMAL) Differential, auto (12/25/2021 4:51 PM CDT) Neutrophil abs 6.2 1.7 - 6.5 K/cumm [facility] ([place]) Imm gran abs 0.0 0.0 - 0.1 K/cumm [facility] ([place]) Lymphocyte abs 0.7(L) 0.8 - 3.3 K/cumm [facility] ([place]) Monocyte abs 0.4 0.2 - 0.8 K/cumm [facility] ([place]) Eosinophil abs 0.1 0.0 - 0.5 K/cumm [facility] ([place]) Basophil abs 0.0 0.0 - 0.1 K/cumm [facility] ([place]) Neutrophil pct 83.5 % [facility] ([place]) Comment: Interpretive Data Percent cell count reference ranges are not reported, since discordance with absolute values may lead to misinterpretation of CBC data. Current Interpretive Data was last revised on 2017. Imm gran pct 0.4 % [facility] ([place]) Comment: Interpretive Data Percent cell count reference ranges are not reported, since discordance with absolute values may lead to misinterpretation of CBC data. Current Interpretive Data was last revised on 2017. Lymphocyte pct 9.9 % [facility] ([place]) Comment: Interpretive Data Percent cell count reference ranges are not reported, since discordance with absolute values may lead to misinterpretation of CBC data. Current Interpretive Data was last revised on 2017. Monocyte pct 5.1 % [facility] ([place]) Comment: Interpretive Data Percent cell count reference ranges are not reported, since discordance with absolute values may lead to misinterpretation of CBC data. Current Interpretive Data was last revised on 2017. Eosinophil pct 0.7 % [facility] ([place]) Comment: Interpretive Data Percent cell count reference ranges are not reported, since discordance with absolute values may lead to misinterpretation of CBC data. Current Interpretive Data was last revised on 2017. Basophil pct 0.4 % [facility] ([place]) Comment: Interpretive Data Percent cell count reference ranges are not reported, since discordance with absolute values may lead to misinterpretation of CBC data. Current Interpretive Data was last revised on 2017. Blood 12/25/2021 4:51 PM CDT 12/25/2021 5:04 PM CDT us Anthony Honeycutt MD LAB BLOOD ORDERABLE S Final Result [facility] ([place]) 1 [facility] Department of Laboratories [place], [place] [id number] * hCG, blood, quantitative (12/25/2021 4:51 PM CDT) hCG, quant <5.0 0.0 - 5.0 IUnits/L [facility] ([place]) Comment: Interpretive Data Non- Female premenopausal: < [...] Data was last revised on 2021. Blood 12/25/2021 4:51 PM CDT 12/25/2021 5:04 PM CDT us Esau Perry MD LAB BLOOD ORDERABLES Edited Result - Final [facility] ([place]) 1 [facility] [place] [employer] [place] [address] * Magnesium (12/25/2021 4:51 PM CDT) Pathologist [facility] Magnesium 1.8 1.4 - 2.5 mg/dL [facility] ([place]) Blood 12/25/2021 4:51 PM CDT 12/25/2021 5:04 PM CDT us Anthony Honeycutt MD LAB BLOOD ORDERABLE S Final Result [facility] ([place] 1 [facility] [place] [employer] [place] [address] * (ABNORMAL) Comprehensive metabolic panel (12/25/2021 4:51 PM CDT) Sodium 137 135 - 145 mmol/L [facility] ([place]) Potassium, pl 3.8 3.3 - 4.9 mmol/L [facility] ([place]) Chloride 104 97 - 110 mmol/L [facility] ([place] CO2 23 22 - 32 mmol/L [facility] ([place]) Anion gap 11 2 - 15 mmol/L [facility] ([place]) BUN 9 8 - 25 mg/dL [facility] ([place]) Creatinine 0.54(L) 0.60 - 1.10 mg/dL [facility] ([place]) Glucose 99 70 - 199 mg/dL [facility] ([place]) [...] classification and Diagnosis of Diabetes Diabetes Care 2017;40 (Suppl. 1):S11. Current interpretive data was last revised 2017. Calcium 9.4 8.5 - 10.3 mg/dL [facility] ([place]) Bilirubin, total 0.3 0.1 - 1.2 mg/dL [facility] ([place]) Protein, pl 7.8 6.5 - 8.5 g/dL [facility] ([place]) Albumin 4.6 3.5 - 5.0 g/dL [facility] ([place]) Alk phos 57 40 - 130 Units/L [facility] ([place]) ALT 12 7 - 45 Units/L [facility] ([place]) AST 19 10 - 45 Units/L [facility] ([place]) Blood 12/25/2021 4:51 PM CDT 12/25/2021 5:04 PM CDT us Anthony Honeycutt MD LAB BLOOD ORDERABLE S Final Result [facility] ([place]) 1 [facility] [place] [address] * (ABNORMAL) CBC with auto differential (12/25/2021 4:51 PM CDT) WBC 7.4 3.8 - 9.9 K/cumm [facility] ([place]) Hgb 11.1(L) 11.9 - 15.5 g/dL [facility] ([place]) Hct 35.5(L) 35.6 - 45.5 % [facility] ([place]) Plt 365 150 - 400 K/cumm [facility] ([place]) MPV 9.5 9.1 - 12.3 fL [facility] ([place]) RBC 4.61 3.90 - 5.20 M/cumm [facility] ([place]) MCV 77.0(L) 81.3 - 96.4 fL [facility] ([place]) MCH 24.1(L) 27.1 - 33.3 pg [facility] ([place]) MCHC 31.3(L) 32.3 - 35.7 g/dL [facility] ([place]) RDW CV 16.9(H) 11.1 - 14.9 % [facility] ([place]) RDW SD 45.4 35.7 - 48.1 fL [facility] ([place]) NRBC abs 0.00 0.00 - 0.01 K/cumm [facility] ([place]) Blood 12/25/2021 4:51 PM CDT 12/25/2021 5:04 PM CDT us Anthony Honeycutt MD LAB BLOOD ORDERABLE S Final Result [facility] ([place]) 1 [facility] [place] [address] documented in this encounter Visit Diagnoses Diagnosis Food poisoning- Primary Unspecified food poisoning documented in this encounter Care Teams Senior C Software Developer Relationship Specialty [place] [address] [address] [place] [address] PCP - General 07/04/19 [place] [address] [address] [place] [address] 11/16/18 Ernie Shaw MD [address] [place] [address] [address] [place] [address] Finished Goods Planner Obstetrics and Gynecology 06/10/20 documented as of this encounter
--- OUTSIDE RECORDS SUMMARY | 2024-02-24 19:59 | XMS_ITS | Encounter Summary ---
Author Organization [facility] Address [address] [place] [address] Care Team Providers Care Coke Oven Patcher Name Role Phone Hsueyin Dangelo MD Unavailable [phone] Brian Mon MD Primary Care Provider + Ernie Shaw MD Unavailable [phone] Encounter Details Date Type Department Care Team (Late st Contact Info) Description 09/17/2021 Orders Only [facility] Gastroenterology at [address] [place] [address] Dang Denis MD [address] [place] [address] [address] [place] [address] Social History Tobacco Use Types Packs/Day Years [...] in a prison (including now)? No 01/01/2021 [place] Depression Scale Answer Date Recorded [place] Depression Scale Total 11 01/11/2021 The thought [...] Last Filled Start Date End Date lidocaine 5 % cream Apply 1 inch topically 2 (two) times a day Apply in anal area twice daily 28 g 1 09/17/2021 3 documented in this encounter Plan of Treatment Not on file documented as of this encounter Visit Diagnoses Not on filedocumented in this encounter Discontinued Medications Medication Sig Discontinue Reason Start Date End Da te lidocaine (LIDODERM) 5 % Apply 1 patch topically daily Remove after 12 hours (need 12 hour patch free period). 10/06/2019 11/05/2019 documented as of this encounter Care Teams Coke Oven Patcher Relationship Specialty [place] [address] [address] PCP - General 07/04/19 [place] [address] [address] [address] 11/16/18 Ernie Shaw MD [address] [facility] [address] [place] [address] Microwave Radio Technician Obstetrics and Gynecology 06/10/20 documented as of this encounter
--- OUTSIDE RECORDS SUMMARY | 2024-02-24 19:59 | XMS_ITS | Encounter Summary ---
Author Organization [facility] Address [address] [place] [address] Care Team Providers Care Geophysical Support Specialist Name Role Phone Huseyin Dangelo MD Unavailable [phone] Brian Mon MD Primary Care Provider + Ernie Shaw MD Unavailable [phone] Reason for Visit * Reason Onset Date Comments Covid-19 Home Monitoring 03/22/2021 re-enro llment call day 1 Encounter Details Date Type Department Care Team (Late st Contact Info) Description 03/22/2021 Telephone [facility] Accountable Care Organization [address] [place] [address] Elise Heard, [address] [place] [address] Covid-19 Home Monitoring (re-enrollment call day 1 ) Social History Tobacco Use Types Packs/Day [...] place to sleep or slept in a care home (including now)? No 01/01/2021 [place] Depression Scale Answer Date Recorded [place] Depression Scale Total 11 01/11/2021 The thought [...] encounter Miscellaneous Notes * Telephone Encounter - Elise Knott MA - 03/22/2021 2:13 PM TRAINING ADMINISTRATOR This patient was identified as a candidate for the [facility]/ COVID home monitoring program. The patient was contacted via phone for enrollment in the program. The patient has declined to participate in the automated MyChart Harvest Crew Supervisor Program, but has verbally agreed to the Phone Only Home Monitoring Program, which includes being contacted for a daily phone assessment by a [facility]/ staff member. The patient was informed that members of the healthcare team will contact them depending on the symptoms that they report. This call could come from a variety of phone numbers depending on which member of the healthcare team is contacting the patient, and the patient should be prepared to answer calls from a variety of phone numbers. If the patient is unable to be reached for 3 days, they will be disenrolled from the program. Patient is aware that we will try and reach them at every available phone number, including HIPAA contacts. After review, the patient declined to participate. The ???COVID19 Home Monitoring?? order was not placed to enroll the patient in the phone only version of the program. NING ADMINISTRATOR documented in this encounter Plan of Treatment Not on file documented as of this encounter Visit Diagnoses Not on filedocumented in this encounter Care Teams Geophysical Support Specialist Relationship Specialty [place] [address] [address] [place] [address] PCP - General 07/04/19 [place] [address] [address] [place] [address] 11/16/18 Ernie Shaw MD [address] [facility] [address] [place] [address] Box Bender Obstetrics and Gynecology 06/10/20 documented as of this encounter
--- OUTSIDE RECORDS SUMMARY | 2024-02-24 19:59 | XMS_ITS | Encounter Summary ---
Author Organization [facility] [employer] [facility] Address [address] [place] [address] Phone Care Team Providers Care Dealer Relationship Manager Name Role Phone Huseyin Dangelo MD Unavailable [phone] Brian Mon MD Primary Care Provider + Ernie Shaw MD Unavailable [phone] Encounter Details Date Type Department Care Team (Late st Contact Info) Description 06/23/2021 Telephone [facility] Rheumatology [address] 5[address] [place] [address] [place] [address] Abby Negrete CMA Social History Tobacco Use Types Packs/Day Years [...] and Family Not on file 01/01/2021 Attends Anabaptism Services Not on file 01/01 Active Member [...] a nursing home (including now)? No 01/01/2021 [place] Depression Scale Answer Date Recorded [place] Depression Scale Total 11 01/11/2021 The thought [...] encounter Miscellaneous Notes * Telephone Encounter - Abby Negrete CMA - 06/23/2021 1:38 PM CDT LMOR for pt to call office to get checked in documented in this encounter Plan of Treatment Not on file documented as of this encounter Visit Diagnoses Not on filedocumented in this encounter Additional Health Concerns Infection Onset Date Last Indicated Resolved Time COVID: Suspected 06/23/2021 06/23/2021 06/23/2021 8:47 AM CDT documented as of this encounter Care Teams Dealer Relationship Manager Relationship Specialty [place] [address] [address] [place] [address] PCP - General 07/04/19 [place] [address] [address] [place] [address] 11/16/18 Ernie Shaw MD [address] [facility] [address] [place] [address] Spinner Box Obstetrics and Gynecology 06/10/20 documented as of this encounter
--- OUTSIDE RECORDS SUMMARY | 2024-02-24 19:59 | XMS_ITS | Encounter Summary ---
Author Organization [facility] Healthcare Address [address] [place] [address] Care Team Providers Care Supervisor Vacuum Metalizing Name Role Phone Huseyin Dangelo MD Unavailable [phone] Brian Mon MD Primary Care Provider + Ernie Shaw MD Unavailable [phone] Reason for Visit * Reason Comments Vaginal Bleeding Encounter Details Date Type Department Care Team (Late st Contact Info) Description 03/21/2021 10:17 AM SEARCH ENGINE MARKETING MANAGER - 03/21/2021 11:38 AM SEARCH ENGINE MARKETING MANAGER Emergency [facility] Emergency Department [address] [place] [address] Esau Perry MD [address] [place] [phone] Menometrorrhagia (Primary Dx) Discharge Disposition: Discharge to home [...] and Family Not on file 01/01/2021 Attends Scientology Services Not on file 01/01 Active Member [...] place to sleep or slept in a chcf (including now)? No 01/01/2021 [place] Depression Scale Answer Date Recorded [place] Depression Scale Total 11 01/11/2021 The thought [...] Reading Time Taken Comments Blood Pressure 112/70 03/21/2021 11:15 AM SEARCH ENGINE MARKETING MANAGER Pulse 77 03/21/2021 11:15 AM SEARCH ENGINE MARKETING MANAGER Temperature 36.9 ??C (98.4 ??F) 03/21/2021 10:[address] Respiratory Rate 23 03/21/2021 11:15 AM SEARCH ENGINE MARKETING MANAGER Oxygen Saturation 98% 03/21/2021 11:15 AM SEARCH ENGINE MARKETING MANAGER Inhaled Oxygen Concentration - - Weight 77.6 kg (171 lb) 03/21/2021 10:26 AM SEARCH ENGINE MARKETING MANAGER Height 160 cm (5' 2.99 ) 03/21/2021 10:26 AM SEARCH ENGINE MARKETING MANAGER Body Mass Index 30.3 03/21/2021 10:26 AM SEARCH ENGINE MARKETING MANAGER documented in this encounter Discharge Diagnoses Diagnosis Excessive and frequent menstruation with irregular cycle - EXCESSIVE AND FREQUENT MENSTRUATION WITH IRREGULAR CYCLE Excessive or frequent menstruation Personal history of nicotine dependence - PERSONAL HISTORY OF NICOTINE DEPENDENCE Depression, unspecified - DEPRESSION, UNSPECIFIED Anxiety disorder, unspecified - ANXIETY DISORDER, UNSPECIFIED Unspecified asthma, uncomplicated - UNSPECIFIED ASTHMA, UNCOMPLICATED Epilepsy, unspecified, not intractable, without status epilepticus (HCC) - EPILEPSY, UNSPECIFIED, NOT INTRACTABLE, WITHOUT STATUS EPILEPTICUS Personal history of COVID-19 - PERSONAL HISTORY OF COVID-19 Chronic kidney disease, unspecified - CHRONIC KIDNEY DISEASE, UNSPECIFIED 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 Follow-up with Dr. Mccoy tomorrow. CH ENGINE MARKETING MANAGER * Attachments The following attachments cannot be sent through Care Everywhere. * Heavy Menstrual Bleeding ([place]) documented in this encounter Medications at Time of Discharge valACYclovir (VALTREX) 500 mg tablet 2 acetaminophen 500 mg capsuleIndications :Pain Take 2 [...] 4 (four) times a day 28 capsule 1 06/24/19 22 cyclobenzaprine (FLEXERIL) 5 mg tablet [...] tablet 11 1 03/16/19 23 PNV with [id number] 27 mg iron- 1 mg tabletIndications: Vitamin [...] Refills Last Filled Start Date End Date norgestimate-ethin yl estradioL (ORTHO-CYCLEN) 0.25-35 mg-mcg per tablet Take 1 tablet by mouth daily 28 tablet 03/21/2021 03/16/2022 documented in this encounter Discharge Disposition Disposition Code Departure Means Destination Discharge to home or self care documented in this encounter ED Notes * Esau Perry MD - 03/21/2021 10:26 AM CST Chief Complaint Patient presents with ??? Vaginal Bleeding HPI 03/21/2021 11:30 AM Carito Madison is a 30 y.o. female former smoker, A2, with a h/o epilepsy, MARIMAR, ADHD, depression, asthma, and lupus who presents to the ED with heavy vaginal bleeding with blood clots since yesterday. Pt reports associated nausea and dizziness, but denies vomiting and headache. She notes that her dizziness is no longer present today. Pt reports that she had a on 12/30/2020 due to placental previa, noting that she lost 3.5 L of blood at the time, but did not receive a blood transfusion. She notes that she then bled for six weeks after giving , but heavy bleeding commenced again yesterday. She states that she has been bleeding through a pad and a Depends every 30 minutes. Pt states that this was her third , noting a h/o two miscarriages. She reports that she recently recovered from COVID-19 and now her has developed COVID-19 symptoms, so he was testedtoday. She notes that she has had nothing to eat yet today. Pt states that her OB-MANAGER MANAGED CARE is Dr. Roberth Mccoy. She reports taking prednisone for lupus, hydroxychloroquine, and Zoloft, but denies taking control. No alleviating or exacerbating factors mentioned. No other complaints at this time. Per chart review: Pt was seen in the ED on 03/05/2021 and tested positive for COVID-19. She was also seen on 03/09/2021 and due to persistent and worsening symptoms despite monoclonal antibody infusion on 03/07/2021. Discharged each time. Past Medical History: Diagnosis Date ??? Anemia [...] Former Smoker Quit date: 12/28/2018 Years since quittin.2 ??? Smokeless tobacco: Never Used Vaping Use ??? Vaping Use: Never used Substance Use Topics ??? Alcohol use: Yes Comment: occasionally ??? Drug use: Not Currently Types: Marijuana Comment: 01/09 - denies Review of Systems Review of Systems Constitutional: Negative for chills and fever. HENT: Negative for congestion, rhinorrhea and sore throat. Eyes: Negative for pain. Respiratory: Negative for cough and shortness of breath. Cardiovascular: Negative for chest pain and leg swelling. Gastrointestinal: Positive for nausea. Negative for abdominal pain, diarrhea and vomiting. Genitourinary: Positive for vaginal bleeding. Negative for difficulty urinating. Musculoskeletal: Negative for myalgias. Skin: Negative for rash. Neurological: Positive for dizziness. Negative for headaches. Psychiatric/Behavioral: Negative for behavioral problems. Physical Exam ED Triage Vitals Temp Pulse Resp BP SpO2 03/21/21 1026 03/21/21 1026 03/21/21 1024 03/21/21 1024 03/21/21 1024 36.9 ??C (98.4 ??F) 103 16 131/91 98 % Temp src Heart Rate Source Patient Position BP Location FiO2 (%) 03/21/21 1026 -- -- -- -- Oral Physical Exam Vitals and nursing note reviewed. Exam conducted with a clinical psychologist private practice present. Constitutional: General: She is not in acute distress. Appearance: She is well-developed. HENT: Head: Normocephalic and atraumatic. Eyes: Conjunctiva/sclera: Conjunctivae normal. Cardiovascular: Rate and Rhythm: Normal rate and regular rhythm. Heart sounds: Normal heart sounds. No murmur heard. Comments: Non-orthostatic. Pulmonary: Effort: Pulmonary effort is normal. No respiratory distress. Breath sounds: Normal breath sounds. Abdominal: General: Bowel sounds are normal. There is no distension. Palpations: Abdomen is soft. Tenderness: There is no abdominal tenderness. There is no guarding. Genitourinary: Comments: Large amount of bleeding in the vagina. Profuse tenderness. Musculoskeletal: Cervical back: Neck supple. Skin: General: Skin is warm and dry. Neurological: Mental Status: She is alert and oriented to person, place, and time. Procedures Labs Reviewed BASIC METABOLIC PANEL - Abnormal Result Value Sodium 140 Potassium, pl 3.8 Chloride 104 CO2 22 Anion gap 14 BUN 13 Creatinine 0.58 (*) Glucose 93 Calcium 9.1 DIFFERENTIAL AUTO - Abnormal Neutrophil abs 7.5 (*) Imm gran abs 0.1 Lymphocyte abs 0.8 Monocyte abs 0.2 Eosinophil abs 0.0 Basophil abs 0.0 Neutrophil pct 87.3 Imm gran pct 0.6 Lymphocyte pct 9.3 Monocyte pct 2.2 Eosinophil pct 0.4 Basophil pct 0.2 CBC WITH AUTO DIFFERENTIAL WBC 8.5 Hgb 12.4 Hct 37.0 Plt 285 MPV 9.7 RBC 4.20 MCV 88.1 MCH 29.5 MCHC 33.5 RDW CV 13.6 RDW SD 43.2 NRBC abs 0.00 HCG, BLOOD, QUANTITATIVE hCG, quant <5.0 TYPE AND SCREEN ABO/RH ABO/RH. A Positive Narrative: Has the patient had Daratumumab or Isatuximab in the past 6 months?->Unknown ANTIBODY SCREEN Jose Antonio, indirect, Gel Interpretation Negative ABSC Narrative: Has the patient had Daratumumab or Isatuximab in the past 6 months?->Unknown EGFR eGFR 126 No orders to display BP 112/70 Pulse 77 Temp 36.9 ??C (98.4 ??F) (Oral) Resp 23 Ht 160 cm (5' 2.99 ) Wt 77.6 kg (171 lb) LMP (LMP Unknown) Comment: LMP end of Mar 2020 SpO2 98% BMI 30.30 kg/m?? MDM Number of Diagnoses or Management Options Amount and/or Complexity of Data Reviewed Clinical lab tests: reviewed and ordered Risk of Complications, Morbidity, and/or Mortality Presenting problems: moderate Diagnostic procedures: moderate Management options: moderate General comments: Patient S/P with heavy vaginal bleeding for 2 days. Normal Hgb. Will start BCP. Follow up with Dr. Mccoy. Patient Progress Patient progress: stable ED Course as of 03/21/21 1151 Time: 03/21 1110 Comment: Updated pt's OB-MANAGER MANAGED CARE, Dr. Mccoy. By: Saadia Tariq Final diagnoses: Menometrorrhagia This note is prepared by Saadia Tariq, acting as a scribe for Esau Perry MD. I electronicallysigned this note at 11:30 AM on 03/21/2021. I, Esau Perry MD, have personally performed the services described in the documentation, reviewed and edited the documentation which was dictated to the scribe in my presence, and it accurately records my words and actions. Esau Perry MD 03/21/21 1152 CH ENGINE MARKETING MANAGER * Amy Higgins RN - 03/21/2021 10:22 AM CST [facility] bleeding with golf ball size blood clots. Pt states she had a December 30. Vaginal bleeding started yesterday. States she has gone through a pad and depends every 30 minutes. Pt reports she lost her baby last in 2018 after hemorrhaging. Denies taking a blood thinner. CH ENGINE MARKETING MANAGER documented in this encounter Plan of Treatment Not on file documented as of this encounter Procedures Procedure Name Priority Date/Time Associated Diagnosis Comments EGFR STAT 03/21/2021 10:34 AM SEARCH ENGINE MARKETING MANAGER DIFFERENTIAL AUTO STAT 03/21/2021 10: 34 AM SEARCH ENGINE MARKETING MANAGER CBC WITH AUTO DIFFERENTIAL STAT 03/21/2021 10:34 AM SEARCH ENGINE MARKETING MANAGER ABO/RH STAT 03/21/2021 10:34 AM SEARCH ENGINE MARKETING MANAGER ANTIBODY SCREEN STAT 03/21/2021 10:34 AM SEARCH ENGINE MARKETING MANAGER TYPE AND SCREEN STAT 03/21/2021 10:34 AM SEARCH ENGINE MARKETING MANAGER HCG, BLOOD, QUANTITATIVE STAT 03/21/2021 10:34 AM SEARCH ENGINE MARKETING MANAGER BASIC METABOLIC PANEL STAT 03/21/2021 10:34 AM SEARCH ENGINE MARKETING MANAGER documented in this encounter Results * eGFR (03/21/2021 10:34 AM SEARCH ENGINE MARKETING MANAGER) eGFR 126 mL/min/1. 73 m2 [facility] ([place]) Comment: Interpretive Data Reference Interval Normal ?>/= [...] of Race in Diagnosing Kidney Disease, JASN 202). The CKD-EPI equation should not be used for patients with unstable renal function and has not been validated in children and those over 70. Current interpretive data was last reviewed 2020. Blood 03/21/2021 10:3 4 AM SEARCH ENGINE MARKETING MANAGER 03/21/2021 10:37 AM SEARCH ENGINE MARKETING MANAGER us Esau Perry MD LAB BLOOD ORDERABLES Final R esult [facility] ([place]) 1 [facility] Department of Laboratories [place], [place] [id number] * (ABNORMAL) Differential, auto (03/21/2021 10:34 AM SEARCH ENGINE MARKETING MANAGER) Pathologist [facility] Neutrophil abs 7.5(H) 1.7 - 6.5 K/cumm [facility] ([place]) Imm gran abs 0.1 0.0 - 0.1 K/cumm [facility] ([place]) Lymphocyte abs 0.8 0.8 - 3.3 K/cumm [facility] ([place]) Monocyte abs 0.2 0.2 - 0.8 K/cumm [facility] ([place]) Eosinophil abs 0.0 0.0 - 0.5 K/cumm [facility] ([place]) Basophil abs 0.0 0.0 - 0.1 K/cumm [facility] ([place]) Neutrophil pct 87.3 % [facility] ([place]) Comment: Interpretive Data Percent cell count reference ranges are not reported, since discordance with absolute values may lead to misinterpretation of CBC data. Current Interpretive Data was last revised on 2017. Imm gran pct 0.6 % [facility] ([place]) Comment: Interpretive Data Percent cell count reference ranges are not reported, since discordance with absolute values may lead to misinterpretation of CBC data. Current Interpretive Data was last revised on 2017. Lymphocyte pct 9.3 % [facility] ([place]) Comment: Interpretive Data Percent cell count reference ranges are not reported, since discordance with absolute values may lead to misinterpretation of CBC data. Current Interpretive Data was last revised on 2017. Monocyte pct 2.2 % [facility] ([place]) Comment: Interpretive Data Percent cell count reference ranges are not reported, since discordance with absolute values may lead to misinterpretation of CBC data. Current Interpretive Data was last revised on 2017. Eosinophil pct 0.4 % [facility] ([place]) Comment: Interpretive Data Percent cell count reference ranges are not reported, since discordance with absolute values may lead to misinterpretation of CBC data. Current Interpretive Data was last revised on 2017. Basophil pct 0.2 % [facility] ([place]) Comment: Interpretive Data Percent cell count reference ranges are not reported, since discordance with absolute values may lead to misinterpretation of CBC data. Current Interpretive Data was last revised on 2017. Blood 03/21/2021 10:3 4 AM SEARCH ENGINE MARKETING MANAGER 03/21/2021 10:37 AM SEARCH ENGINE MARKETING MANAGER Esau Perry MD LAB BLOOD ORDERABLES Final R esult Performing Organization Address City/[facility]/ZIP Co de Phone Number [facility] ([place]) 1 [facility] [place] [address] * Antibody screen (03/21/2021 10:34 AM SEARCH ENGINE MARKETING MANAGER) Jose Antonio, indirect, Gel Interpretation Negative ABSC [facility] ([place]) Blood 03/21/2021 10:3 4 AM SEARCH ENGINE MARKETING MANAGER 03/21/2021 10:37 AM SEARCH ENGINE MARKETING MANAGER Narrative [facility] ([place]) - 03/21/2021 11:13 AM SEARCH ENGINE MARKETING MANAGER Has the patient had Daratumumab or Isatuximab in the past 6 months?->Unknown Esua Perry MD LAB BLOOD BANK TEST ORDERABL ES Final Result Performing Organization Address [facility] Co de Phone Number [facility] ([place]) 1 [facility] [place] [address] * ABO/Rh (03/21/2021 10:34 AM SEARCH ENGINE MARKETING MANAGER) ABO/Rh A Positive [facility] ([place]) Blood 03/21/2021 10:3 4 AM SEARCH ENGINE MARKETING MANAGER 03/21/2021 10:37 AM SEARCH ENGINE MARKETING MANAGER Narrative [facility] ([place]) - 03/21/2021 11:13 AM SEARCH ENGINE MARKETING MANAGER Has the patient had Daratumumab or Isatuximab in the past 6 months?->Unknown Esau Perry MD LAB BLOOD BANK TEST ORDERABL ES Final Result Performing Organization Address City/[facility]/ZIP Co de Phone Number [facility] ([place]) 1 [facility] [place] [address] * hCG, blood, quantitative (03/21/2021 10:34 AM SEARCH ENGINE MARKETING MANAGER) hCG, quant <5.0 0.0 - 5.0 IUnits/L [facility] ([place]) Comment: Interpretive Data Non- Female premenopausal: < or = 5.0 IUnits/L Men: < 5.0 IUnits/L Weeks of Gestation ? Reference Interval ?? 3 to 6 ? 5.8-31,795 IUnits/L ?? 7 to 10 ? 3,697-186,977 IUnits/L ??12 to 15 ?27,832- 70,791 IUnits/L ??16 to 18 ? 9,040- 58,179 IUnits/L Current Interpretive Data was last revised on 2017. Blood 03/21/2021 10:3 4 AM SEARCH ENGINE MARKETING MANAGER 03/21/2021 10:37 AM SEARCH ENGINE MARKETING MANAGER us Esau Perry MD LAB BLOOD ORDERABLES Final R esult [facility] ([place]) 1 [facility] [place] [address] * (ABNORMAL) Basic metabolic panel (03/21/2021 10:34 AM SEARCH ENGINE MARKETING MANAGER) Sodium 140 135 - 145 mmol/L [facility] ([place]) Potassium, pl 3.8 3.3 - 4.9 mmol/L [facility] ([place]) Chloride 104 97 - 110 mmol/L [facility] ([place]) CO2 22 22 - 32 mmol/L [facility] ([place]) Anion gap 14 2 - 15 mmol/L [facility] ([place]) BUN 13 8 - 25 mg/dL [facility] ([place]) Creatinine 0.58(L) 0.60 - 1.10 mg/dL [facility] ([place]) Glucose 93 70 - 199 mg/dL [facility] ([place]) Comment: Interpretive Data Fasting [...] interpretive data was last revised 2017. Calcium 9.1 8.5 - 10.3 mg/dL [facility] ([place]) Blood 03/21/2021 10:3 4 AM SEARCH ENGINE MARKETING MANAGER 03/21/2021 10:37 AM SEARCH ENGINE MARKETING MANAGER us Esau Perry MD LAB BLOOD ORDERABLES Final R esult [facility] ([place]) 1 [facility] [place] [address] * CBC with auto differential (03/21/2021 10:34 AM SEARCH ENGINE MARKETING MANAGER) WBC 8.5 3.8 - 9.9 K/cumm [facility] ([place]) Hgb 12.4 11.9 - 15.5 g/dL [facility] ([place]) Hct 37.0 35.6 - 45.5 % [facility] ([place]) Plt 285 150 - 400 K/cumm [facility] ([place]) MPV 9.7 9.1 - 12.3 fL [facility] ([place]) RBC 4.20 3.90 - 5.20 M/cumm [facility] ([place]) MCV 88.1 81.3 - 96.4 fL [facility] ([place]) MCH 29.5 27.1 - 33.3 pg [facility] ([place]) MCHC 33.5 32.3 - 35.7 g/dL [facility] ([place]) RDW CV 13.6 11.1 - 14.9 % [facility] ([place]) RDW SD 43.2 35.7 - 48.1 fL [facility] ([place]) NRBC abs 0.00 0.00 - 0.01 K/cumm [facility] ([place]) Blood 03/21/2021 10:3 4 AM SEARCH ENGINE MARKETING MANAGER 03/21/2021 10:37 AM SEARCH ENGINE MARKETING MANAGER us Esau Perry MD LAB BLOOD ORDERABLES Final R esult [facility] ([place]) 1 [facility] [place] [address] documented in this encounter Visit Diagnoses Diagnosis Menometrorrhagia- Primary Excessive or frequent menstruation documented in this encounter Care Teams Supervisor Vacuum Metalizing Relationship Specialty [place] [address] [address] [place] [address] PCP - General 07/04/19 [place] [address] [address] [place] [address] 11/16/18 Ernie Shaw MD [address] [place] [address] [address] [place] [address] Rn Geriatric Obstetrics and Gynecology 06/10/20 documented as of this encounter
--- OUTSIDE RECORDS SUMMARY | 2024-02-24 19:59 | XMS_ITS | Encounter Summary ---
Author Organization [facility] Address [address] [place] [address] Phone Care Team Providers Care Alum Operator Name Role Phone Huseyin Dangelo MD Unavailable [phone] Brian Mon MD Primary Care Provider + Ernie Shaw MD Unavailable [phone] Encounter Details Date Type Department Care Team (Late st Contact Info) Description 12/30/2021 Telephone [facility] Rheumatology [address] [facility] Advanced Medicine [address]th [place] [address] [place] [address] Cirilo Velasquez MD [address] [place] [address] Social History Tobacco Use Types [...] and Family Not on file 01/01/2021 Attends Jewish Services Not on file 01/01 Active Member [...] in a long-term (including now)? No 01/01/2021 [place] Depression Scale Answer Date Recorded [place] Depression Scale Total 11 01/11/2021 The thought [...] mouth daily 60 tablet 1 12/30/2021 3 documented in this encounter Miscellaneous Notes * Telephone Encounter - Cirilo Velasquez MD - 12/30/2021 9:31 PM CDT This provider was contacted as the on-call Rheumatology fellow with an urgent patient question/concern: Their primary sidehand is Dr. Delarosa Their urgent question is regarding: medication refill Patient calls this evening requesting medication refill of HCQ 200mg BID that she ran out of today.I will write for this renewal to her preferred local pharmacy. She reports she is UTD on annual eyeexam, although on my brief review of the chart I do not see scanned in outside records. She reports possibly starting to flare with arthralgias attributed to recent weather changes, although she is definitely not in need of prednisone burst. She says she has extra prednisone on handthat she will self-titrate/increase if she feels like she needs it, for which she would alert Dr. Delarosa. She mentions additionally a 5-month history of increased brain fog and feeling out of it that has been worse since the of her last child. She denies acute vision changes or headache today,but she would like to discuss the progression of these symptoms with Dr. Delarosa. On chart review, it appears patient had cancelled planned 6-month follow-up with Dr. Delarosa in September,and no clinic follow-up has been rescheduled to this point. I will alert Dr. Delarosa and her clinic team to assist with rescheduling her follow- up in the hopeful near future. documented in this encounter Plan of Treatment Not on file documented as of this encounter Visit Diagnoses Diagnosis Systemic lupus erythematosus, unspecified SLE type, unspecified organ involvement status (HCC)- Primary documented in this encounter Discontinued Medications Medication Sig Discontinue Reason Start Date End Da te hydrOXYchloroQUINE (PLAQUENIL) 200 mg tablet TAKE 2 TABLETS BY MOUTH EVERY DAY Reorder 09/20/2021 12/30/2021 documented as of this encounter Care Teams Alum Operator Relationship Specialty [place] [address] [address] [place] [address] PCP - General 07/04/19 [place] [address] [address] [place] [address] 11/16/18 Ernie Shaw MD [address] [place] [address] [address] [place] [address] Bucket Wash Operator Obstetrics and Gynecology 06/10/20 documented as of this encounter
--- OUTSIDE RECORDS SUMMARY | 2024-02-24 19:59 | XMS_ITS | Encounter Summary ---
Author Organization [facility] Address [address] [place] [address] Phone Care Team Providers Care Continuous Improvement Facilitator Name Role Phone Huseyin Dangelo MD Unavailable [phone] Brian Mon MD Primary Care Provider + Ernie Shaw MD Unavailable [phone] Encounter Details Date Type Department Care Team (Late st Contact Info) Description 05/14/2021 Orders Only [facility] Endocrinology Metabolism and Lipid [address] [facility] Advanced Medicine 13th [place] [address] [place] [address] Erickson Hernandez MD [address] [place] [address] Adrenal insufficiency (CMS/HCC) (HCC) Social History Tobacco Use Types Packs/Day [...] and Family Not on file 01/01/2021 Attends [employer] Services Not on file 01/01 Active Member [...] place to sleep or slept in a intermediate (including now)? No 01/01/2021 Robinson Depression Scale Answer Date Recorded Robinson Depression Scale Total 11 01/11/2021 The thought [...] Filled Start Date End Date predniSONE (DELTASONE) 2.5 mg tablet Take 1 tablet (2.5 mg) by mouth daily Total dose of 7.5 mg daily 30 tablet 05/14/2021 2 predniSONE (DELTASONE) 5 mg tabletIndications:A drenal Cortical Insufficiency Take 1 tablet (5 mg) by mouth daily Total dose of 7.5 mg daily 30 tablet 05/14/2021 2 documented in this encounter Progress Notes * Erickson Hernandez MD - 05/14/2021 3:43 PM CDT Patient called requesting refill for Prednisone 7.5 mg daily. Refill sent to preferred pharmacy documented in this encounter Plan of Treatment Not on file documented as of this encounter Visit Diagnoses Diagnosis Adrenal insufficiency (HCC) Glucocorticoid deficiency documented in this encounter Discontinued Medications Medication Sig Discontinue Reason Start Date End Da te predniSONE (DELTASONE) 2.5 mg tablet Take 3 tablets (7.5 mg) by mouth daily Reorder 01/04/2021 05/14/2021 predniSONE (DELTASONE) 5 mg tabletIndications:Adrenal insufficiency (HCC) TAKE 1 TABLET BY MOUTH EVERY DAY Reorder 01/31/2021 05/14/2021 documented as of this encounter Care Teams Continuous Improvement Facilitator Relationship Specialty [place] [address] [address] [place] [address] PCP - General 07/04/19 [place] [address] [address] [place] [address] 11/16/18 Ernie Shaw MD [address] [facility] [address] [place] [id number] Lead Retail Sales Associate Obstetrics and Gynecology 06/10/20 documented as of this encounter
--- OUTSIDE RECORDS SUMMARY | 2024-02-24 19:59 | XMS_ITS | Encounter Summary ---
Author Organization [facility] Address [address] [place] [address] Care Team Providers Care Carrot Buncher Name Role Phone Huseyin Dangelo MD Unavailable [phone] Brian Mon MD Primary Care Provider + Ernie Shaw MD Unavailable [phone] Reason for Visit * Reason Comments Back Pain Encounter Details Date Type Department Care Team (Late st Contact Info) Description 09/30/2021 9:57 PM CDT - 09/30/2021 11:17 PM CDT Emergency [facility] Emergency Department [address] [place] [address] Discharge Disposition: Left without being seen Social History Tobacco Use Types Packs/Day Years [...] in a halfway (including now)? No 01/01/2021 [place] Depression Scale Answer Date Recorded [place] Depression Scale Total 11 01/11/2021 The thought [...] Sign Reading Time Taken Comments Blood Pressure 131/93 09/30/2021 10:00 PM CDT Pulse 82 09/30/2021 10:00 PM CDT Temperature 36.4 ??C (97.5 ??F) 09/30/2021 10:00 PM C DT Respiratory Rate 18 09/30/2021 10:00 PM CDT Oxygen Saturation 100% 09/30/2021 10:00 PM CDT Inhaled Oxygen Concentration - - Weight 77.1 kg (170 lb) 09/30/2021 10:00 PM CDT Height 154.9 cm (5' 1 ) 09/30/2021 10:00 PM CDT Body Mass Index 32.12 09/30/2021 10:00 PM CDT documented in this encounter Discharge Diagnoses Diagnosis Procedure and treatment not carried out due to patient leaving prior to being seen by health care provider - PROCEDURE AND TREATMENT NOT CARRIED OUT DUE TO PATIENT LEAVING PRIOR TO BEING SEEN BY HEALTH CARE PA Contact with and (suspected) exposure to covid-19 - CONTACT WITH AND (SUSPECTED) EXPOSURE TO COVID-19 documented in this encounter Medications at Time [...] 30 tablet 11 01/03/2021 3 PNV with [id number] 27 mg iron- 1 mg tabletIndication s:Vitamin Deficiency Prevention Take 1 tablet by mouth daily 30 tablet 1 01/04/2021 3 predniSONE (DELTASONE) 5 mg tablet Take 1 tablet (5 mg) by mouth daily 30 tablet 09/20/2021 2 promethazine-DM (PROMETHAZINE-DM ) 1.25-3 mg/mL syrup Take [...] Code Departure Means Destination Comment s Left without being seen Pt states that she saw her labs and didn't want to stay. documented in this encounter ED Notes * Carito Alegria, RN - 09/30/2021 9:58 PM CDT Pt states that she woke up with back pain and it moved to her neck and chest. Pt states she has lupus. Pt states she feels short of breath. documented in this encounter Plan of Treatment Not on file documented as of this encounter Procedures Procedure Name Priority Date/Time Associated Diagnosis Comments TROPONIN T HIGH-SENSITIVITY SERIES (BASELINE, 2HR, 4HR, 6HR) STAT 09/30/2021 10:15 PM CDT INFLUENZA A/B, RSV, AND COVID-19 PCR Routine 09/30/2021 10:15 PM CDT EGFR STAT 09/30/2021 10:15 PM CDT DIFFERENTIAL AUTO STAT 09/30/2021 10: 15 PM CDT CBC WITH AUTO DIFFERENTIAL STAT 09/30/2021 10:15 PM CDT COMPREHENSIVE METABOLIC PANEL STAT 09/30/2021 10:15 PM CDT ECG 12-LEAD Routine 09/30/2021 10:06 PM CDT documented in this encounter Results * eGFR (09/30/2021 10:15 PM CDT) eGFR 124 mL/min/1. 73 m2 [facility] ([place]) Comment: Interpretive Data Reference Interval Normal ?>/= [...] interpretive data was last reviewed 2020. Blood 09/30/2021 10:1 5 PM CDT 09/30/2021 10:18 PM CDT us Adolfo Arguello MD LAB BLOOD ORDERABLES Final Re sult [facility] ([place]) 1 [facility] Department [place] [address] * (ABNORMAL) Differential, auto (09/30/2021 10:15 PM CDT) Neutrophil abs 9.1(H) 1.7 - 6.5 K/cumm [facility] ([place]) Imm gran abs 0.0 0.0 - 0.1 K/cumm [facility] ([place]) Lymphocyte abs 2.2 0.8 - 3.3 K/cumm [facility] ([place]) Monocyte abs 0.7 0.2 - 0.8 K/cumm [facility] ([place]) Eosinophil abs 0.1 0.0 - 0.5 K/cumm [facility] ([place]) Basophil abs 0.0 0.0 - 0.1 K/cumm [facility] ([place]) Neutrophil pct 75.2 % [facility] ([place]) Comment: Interpretive Data Percent cell count reference ranges are not reported, since discordance with absolute values may lead to misinterpretation of CBC data. Current Interpretive Data was last revised on 2017. Imm gran pct 0.2 % [facility] ([place]) Comment: Interpretive Data Percent cell count reference ranges are not reported, since discordance with absolute values may lead to misinterpretation of CBC data. Current Interpretive Data was last revised on 2017. Lymphocyte pct 17.9 % [facility] ([place]) Comment: Interpretive Data Percent cell count reference ranges are not reported, since discordance with absolute values may lead to misinterpretation of CBC data. Current Interpretive Data was last revised on 2017. Monocyte pct 5.4 % [facility] ([place]) Comment: Interpretive Data Percent cell count reference ranges are not reported, since discordance with absolute values may lead to misinterpretation of CBC data. Current Interpretive Data was last revised on 2017. Eosinophil pct 1.0 % [facility] ([place]) Comment: Interpretive Data Percent cell count reference ranges are not reported, since discordance with absolute values may lead to misinterpretation of CBC data. Current Interpretive Data was last revised on 2017. Basophil pct 0.3 % [facility] ([place]) Comment: Interpretive Data Percent cell count reference ranges are not reported, since discordance with absolute values may lead to misinterpretation of CBC data. Current Interpretive Data was last revised on 2017. Blood 09/30/2021 10:1 5 PM CDT 09/30/2021 10:18 PM CDT Adolfo Arguello MD LAB BLOOD ORDERABLES Final Re sult [facility] 1 [facility] [place] [address] * Influenza A/B, RSV, and COVID-19 PCR Nasopharyngeal (09/30/2021 10:15 PM CDT) COVID-19 RNA Negative Negative [facility] ([place]) Influenza A RNA Negative Negative [facility] ([place]) Influenza B RNA Negative Negative [facility] ER [facility] ([place]) RSV RNA Negative Negative [facility] ([place]) Comment: Interpretive data: This test is performed using the [employer] Xpert Xpress CoV-2/Flu/RSV plus assay. This is [...] infection. Interpretive Data last revised 2021. Nasopharyngeal 09/30/2021 10 :15 PM CDT 09/30/2021 10:18 PM CDT Narrative [facility] ([place]) - 09/30/2021 11:05 PM CDT Is the Patient experiencing symptoms consistent with COVID?->Yes Date of Symptom Onset->09/26/21 Reason for testing?->Symptomatic Adolfo Arguello MD LAB MICROBIOLOGY - GENERAL OR DERABLES Final Result [facility] 1 [facility] [place] [address] * Troponin T high-sensitivity series (baseline, 2hr, 4hr, 6hr) (09/30/2021 10:15 PM CDT) Pathologist [facility] Trop T hs <6 <=14 ng/L [facility] ([place]) Comment: Interpretive Data For further hscTnT resources including the diagnostic algorithm and an aid in interpretation, copy and paste this link: https://nrl.testcatalog.org/show/[email or web address] Current Interpretive Data last revised 2020. Blood 09/30/2021 10:1 5 PM CDT 09/30/2021 10:18 PM CDT Adolfo Arguello MD LAB BLOOD ORDERABLES Edited R esult - Final [facility] ([place]) 1 [facility] Department [place] [address] * (ABNORMAL) Comprehensive metabolic panel (09/30/2021 10:15 PM CDT) Sodium 138 135 - 145 mmol/L [facility] ([place]) Potassium, pl 3.4 3.3 - 4.9 mmol/L [facility] ([place]) Chloride 104 97 - 110 mmol/L [facility] ([place]) CO2 21(L) 22 - 32 mmol/L [facility] ([place]) Anion gap 12 2 - 15 mmol/L [facility] ([place]) BUN 12 8 - 25 mg/dL [facility] ([place]) Creatinine 0.62 0.60 - 1.10 mg/dL [facility] ([place]) Glucose 110 70 - 199 mg/dL [facility] ([place]) [...] interpretive data was last revised 2017. Calcium 9.6 8.5 - 10.3 mg/dL [facility] ([place]) Bilirubin, total <0.2 0.1 - 1.2 mg/dL [facility] ([place]) Protein, pl 7.1 6.5 - 8.5 g/dL [facility] ([place]) Albumin 4.7 3.5 - 5.0 g/dL [facility] ([place]) Alk phos 55 40 - 130 Units/L [facility] ([place]) ALT 10 7 - 45 Units/L [facility] ([place]) AST 14 10 - 45 Units/L [facility] ([place]) Blood 09/30/2021 10:1 5 PM CDT 09/30/2021 10:18 PM CDT us Adolfo Arguello MD LAB BLOOD ORDERABLES Final Re sult [facility] ([place]) 1 [facility] Department [place] [address] * (ABNORMAL) CBC with auto differential (09/30/2021 10:15 PM CDT) WBC 12.1(H) 3.8 - 9.9 K/cumm [facility] ([place]) Hgb 10.3(L) 11.9 - 15.5 g/dL [facility] ([place]) Hct 33.2(L) 35.6 - 45.5 % [facility] ([place]) Plt 317 150 - 400 K/cumm [facility] ([place]) MPV 9.7 9.1 - 12.3 fL [facility] ([place]) RBC 4.24 3.90 - 5.20 M/cumm [facility] ([place]) MCV 78.3(L) 81.3 - 96.4 fL [facility] ([place]) MCH 24.3(L) 27.1 - 33.3 pg [facility] ([place]) MCHC 31.0(L) 32.3 - 35.7 g/dL [facility] ([place]) RDW CV 17.6(H) 11.1 - 14.9 % [facility] ([place]) RDW SD 49.8(H) 35.7 - 48.1 fL [facility] ([place]) NRBC abs 0.00 0.00 - 0.01 K/cumm [facility] ([place]) Blood 09/30/2021 10:1 5 PM CDT 09/30/2021 10:18 PM CDT Adolfo Arguello MD LAB BLOOD ORDERABLES Final Re sult Performing Organization Address City/[facility]/ZIP Co de Phone Number [facility] ([place]) 1 [facility] Department [place] [address] * ECG 12 lead (09/30/2021 10:06 PM CDT) 09/30/2021 10:0 6 PM CDT Narrative [facility] - 10/01/2021 7:59 AM CDT Vent Rate: 78 bpm RR Interval: 764 msec PA Interval: 134 msec QRS Duration: 88 msec QT Interval: 364 msec QTC Interval: 397 msec P-R-T [place]: 41 - 10 - 12 degrees SINUS RHYTHM NORMAL ECG No change from prior EKG Electronically Signed By: Tristan Edmondson MD Adolfo Arguello MD ECG ORDERABLES Final Result Performing Organization Address [facility] Co de Phone Number [employer] documented in this encounter Visit Diagnoses Not on filedocumented in this encounter Additional Health Concerns Infection Onset Date Last Indicated Resolved Time COVID: Suspected 09/30/2021 09/30/2021 09/30/2021 11:06 PM CDT documented as of this encounter Care Teams Carrot Buncher Relationship Specialty [place] [address] [address] [place] [address] PCP - General 07/04/19 [place] [address] [address] [place] [address] 11/16/18 Ernie Shaw MD [address] [place] [address] [address] [place] [address] Human Services Case Manager Obstetrics and Gynecology 06/10/20 documented as of this encounter
--- OUTSIDE RECORDS SUMMARY | 2024-02-24 19:59 | XMS_ITS | Encounter Summary ---
Author Organization [facility] Healthcare Address [address] [place] [address] Care Team Providers Care Project Hire Name Role Phone Huseyin Dangelo MD Unavailable [phone] Brian Mon MD Primary Care Provider + Ernie Shaw MD Unavailable [phone] Encounter Details Date Type Department Care Team (Late st Contact Info) Description 05/04/2021 11:10 AM RETORT OPERATOR [address] [address] Carolina Delarosa MD [id number] [place] [address] High risk medication use; Systemic lupus erythematosus, unspecified SLE type, unspecified organ involvement status (HCC) Discharge Disposition: Discharge to home or [...] and Family Not on file 01/01/2021 Attends [employer] Not on file 01/01 Active Member [...] in a half-way (including now)? No 01/01/2021 [place] Depression Scale Answer Date Recorded [place] Depression Scale Total 11 01/11/2021 The thought [...] on file documented as of this encounter Discharge Disposition Disposition Code Departure Means Destination Discharge to home or self care documented in this encounter Plan of Treatment Not on file documented as of this encounter Procedures Procedure Name Priority Date/Time Associated Diagnosis Comments URINALYSIS AND REFLEX TO MICROSCOPIC AND CULTURE Routine 05/04/2021 11:23 AM RETORT OPERATOR Systemic lupus erythematosus, unspecified SLE type, unspecified organ involvement status (HCC) PROTEIN / CREATININE RATIO, URINE, RANDOM Routine 05/04/2021 11:23 AM RETORT OPERATOR Systemic lupus erythematosus, unspecified SLE type, unspecified organ involvement status (HCC) URINALYSIS, MICROSCOPIC ONLY Routine 05/04/2021 11:23 AM RETORT OPERATOR Systemic lupus erythematosus, unspecified SLE type, unspecified organ involvement status (HCC) EGFR Routine 05/04/2021 11:17 AM RETORT OPERATOR Systemic lupus erythematosus, unspecified SLE type, unspecified organ involvement status (HCC) DIFFERENTIAL AUTO Routine 05/04/2021 11: 17 AM RETORT OPERATOR Systemic lupus erythematosus, unspecified SLE type, unspecified organ involvement status (HCC) C4 COMPLEMENT Routine 05/04/2021 11:17 AM RETORT OPERATOR Systemic lupus erythematosus, unspecified SLE type, unspecified organ involvement status (HCC) TB TEST, QUANTIFERON GOLD Routine 05/04/2021 11:17 AM RETORT OPERATOR High risk medication use CBC WITH AUTO DIFFERENTIAL Routine 05/04/2021 11:17 AM RETORT OPERATOR Systemic lupus erythematosus, unspecified SLE type, unspecified organ involvement status (HCC) ERYTHROCYTE SEDIMENTATION RATE Routine 05/04/2021 11:17 AM RETORT OPERATOR Systemic lupus erythematosus, unspecified SLE type, unspecified organ involvement status (HCC) C3 COMPLEMENT Routine 05/04/2021 11:17 AM RETORT OPERATOR Systemic lupus erythematosus, unspecified SLE type, unspecified organ involvement status (HCC) CRP (ACUTE PHASE) Routine 05/04/2021 11: 17 AM RETORT OPERATOR Systemic lupus erythematosus, unspecified SLE type, unspecified organ involvement status (HCC) COMPREHENSIVE METABOLIC PANEL Routine 05/04/2021 11:17 AM RETORT OPERATOR Systemic lupus erythematosus, unspecified SLE type, unspecified organ involvement status (HCC) ANTI-DOUBLE STRANDED DNA ANTIBODIES Routine 05/04/2021 11:08 AM RETORT OPERATOR documented in this encounter Results * (ABNORMAL) Urinalysis, microscopic only (05/04/2021 11:23 AM RETORT OPERATOR) WBC, ur 0-5 0 - 5 /HPF [facility] ([place]) RBC, ur 0-2 0 - 2 /HPF [facility] ([place]) Epithelial cells, squamous, ur 6-10(A) 0 - 5 /HPF [facility] ([place]) Mucous, ur Present(A) [facility] ([place]) Culture Reflex Comment Reflex conditions for urine culture (WBC >10) not met. [facility] ([place]) Urine 05/04/2021 11:2 3 AM RETORT OPERATOR 05/04/2021 12:26 PM RETORT OPERATOR us Carolina Delarosa MD LAB URINE ORDERABLES Final Result [facility] ([place]) 1 [facility] Department [place] [address] * Protein / creatinine ratio, urine, random (05/04/2021 11:23 AM RETORT OPERATOR) Protein, ur, quant 23.0 mg/dL [facility] ([place]) Comment: Interpretive Data No reference range established. Current interpretive data was last revised 2018. Creatinine Ur 279.8 mg/dL [facility] ([place]) Comment: Interpretive Data No reference range established. Current interpretive data was last revised 2018. Protein/creatinin e ratio 82.2 0.0 - 180.0 mg/g CR [facility] ([place]) Urine 05/04/2021 11:2 3 AM RETORT OPERATOR 05/04/2021 12:26 PM RETORT OPERATOR Carolina Dlearosa MD LAB URINE ORDERABLES Final Result [facility] ([place]) 1 [facility] Department [place] [address] * (ABNORMAL) Urinalysis reflex to microscopic and culture Urine (05/04/2021 11:23 AM RETORT OPERATOR) Color, ur Yellow Yellow [facility] ([place]) Clarity, ur Clear Clear [facility] ([place]) Specific gravity, ur 1.029 1.003 - 1.030 [facility] ([place]) pH, urine 5.5 [facility] ([place]) Protein, ur ql 1+(A) Negative [facility] ([place]) Glucose, ur ql Negative Negative [facility] ([place]) Ketones, ur Negative Negative [facility] ([place]) Bilirubin, ur Negative Negative [facility] ([place]) Blood, ur 2+(A) Negative [facility] ([place]) Urobilinogen, ur <2.0 <2.0 mg/dL [facility] ([place]) Nitrite, ur Negative Negative [facility] ([place]) Leukocyte esterase, ur Negative Negative [facility] ([place]) UA reflex comment Reflex to microscopic UA will be performed. [facility] ([place]) Urine 05/04/2021 11:2 3 AM RETORT OPERATOR 05/04/2021 12:26 PM RETORT OPERATOR Narrative [facility] ([place]) - 05/04/2021 12:38 PM RETORT OPERATOR ?? Urine pH is affected by diet, medications, systemic acid-base disturbances, and renal tubular function. ??pH may affect urinary stone formation. ??For example, urine pH below 6.0 may help reduce the tendency for calcium phosphate stones and pH greater than 6.0 may reduce the tendency for uric acid stone formation. Source: [employer]. Last revised 03-08-2017 us Carolina Delarosa MD LAB MICROBIOLOGY - GENERAL ORDERABLES Final Result Performing Organization Address City/[facility]/ZIP Co de Phone Number [facility] ([place]) 1 [facility] Department [place] [address] * eGFR (05/04/2021 11:17 AM RETORT OPERATOR) [facility] eGFR 123 mL/min/1. 73 m2 [facility] [...] interpretive data was last reviewed 2020. Blood 05/04/2021 11:1 7 AM RETORT OPERATOR 05/04/2021 12:25 PM RETORT OPERATOR us Carolina Delarosa MD LAB BLOOD ORDERABLES Final Result [facility] ([place]) 1 [facility] Department [place] [address] * (ABNORMAL) Differential, auto (05/04/2021 11:17 AM RETORT OPERATOR) Neutrophil abs 7.6(H) 1.7 - 6.5 K/cumm [facility] ([place]) Imm gran abs 0.0 0.0 - 0.1 K/cumm [facility] ([place]) Lymphocyte abs 0.5(L) 0.8 - 3.3 K/cumm [facility] ([place]) Monocyte abs 0.2 0.2 - 0.8 K/cumm [facility] ([place]) Eosinophil abs 0.0 0.0 - 0.5 K/cumm [facility] ([place]) Basophil abs 0.0 0.0 - 0.1 K/cumm [facility] ([place]) Neutrophil pct 90.7 % [facility] ([place]) Comment: Interpretive [...] was last revised on 2017. Lymphocyte pct 6.4 % [facility] ([place]) Comment: Interpretive Data Percent cell count reference ranges are not reported, since discordance with absolute values may lead to misinterpretation of CBC data. Current Interpretive Data was last revised on 2017. Monocyte pct 2.1 % [facility] ([place]) Comment: Interpretive Data [...] Data was last revised on 2017. Blood 05/04/2021 11:1 7 AM RETORT OPERATOR 05/04/2021 12:25 PM RETORT OPERATOR Carolina Delarosa MD LAB BLOOD ORDERABLES Final Result [facility] ([place]) 1 [facility] Department [place] [address] * (ABNORMAL) CBC with auto differential (05/04/2021 11:17 AM RETORT OPERATOR) Pathologist [facility] WBC 8.4 3.8 - 9.9 K/cumm [facility] ([place]) Hgb 11.5(L) 11.9 - 15.5 g/dL [facility] ([place]) Hct 35.8 35.6 - 45.5 % [facility] ([place]) Plt 356 150 - 400 K/cumm [facility] ([place]) MPV 10.1 9.1 - 12.3 fL [facility] ([place]) RBC 4.05 3.90 - 5.20 M/cumm [facility] ([place]) MCV 88.4 81.3 - 96.4 fL [facility] ([place]) MCH 28.4 27.1 - 33.3 pg [facility] ([place]) MCHC 32.1(L) 32.3 - 35.7 g/dL [facility] ([place]) RDW CV 13.4 11.1 - 14.9 % [facility] ([place]) RDW SD 43.8 35.7 - 48.1 fL [facility] ([place]) NRBC abs 0.00 0.00 - 0.01 K/cumm [facility] ([place]) Blood 05/04/2021 11:1 7 AM RETORT OPERATOR 05/04/2021 12:25 PM RETORT OPERATOR Carolina Delarosa MD LAB BLOOD ORDERABLES Final Result [facility] ([place]) 1 [facility] [place] [address] * Comprehensive metabolic panel (05/04/2021 11:17 AM RETORT OPERATOR) Sodium 139 135 - 145 mmol/L [facility] ([place]) Potassium, pl 3.7 3.3 - 4.9 mmol/L [facility] ([place]) Chloride 104 97 - 110 mmol/L [facility] ([place]) CO2 24 22 - 32 mmol/L [facility] ([place] Anion gap 11 2 - 15 mmol/L [facility] ([place]) BUN 14 8 - 25 mg/dL [facility] ([place]) Creatinine 0.65 0.60 - 1.10 mg/dL [facility] ([place]) Glucose 91 70 - 199 mg/dL [facility] ([place]) [...] 1.2 mg/dL [facility] ([place]) Protein, pl 7.5 6.5 - 8.5 g/dL [facility] ([place]) Albumin 4.4 3.5 - 5.0 g/dL [facility] ([place]) Alk phos 66 40 - 130 Units/L [facility] ([place]) ALT 19 7 - 45 Units/L [facility] ([place]) AST 17 10 - 45 Units/L [facility] ([place]) Blood 05/04/2021 11:1 7 AM RETORT OPERATOR 05/04/2021 12:25 PM RETORT OPERATOR us Carolina Delarosa MD LAB BLOOD ORDERABLES Final Result [facility] ([place]) 1 [facility] Department [place] [address] * CRP (acute phase) (05/04/2021 11:17 AM RETORT OPERATOR) CRP 3.4 <=10.0 mg/L [facility] ([place]) Blood 05/04/2021 11:1 7 AM RETORT OPERATOR 05/04/2021 12:25 PM RETORT OPERATOR Carolina Delarosa MD LAB BLOOD ORDERABLES Final Result [facility] ([place]) 1 [facility] [place] [address] * Erythrocyte sedimentation rate (05/04/2021 11:17 AM RETORT OPERATOR) Pathologist [facility] Erythrocyte sedimentation rate 15 1 - 20 mm/hr [facility] ([place]) Blood 05/04/2021 11:1 7 AM RETORT OPERATOR 05/04/2021 12:25 PM RETORT OPERATOR Carolina Delarosa MD LAB BLOOD ORDERABLES Final Result Performing Organization Address [facility] Co de Phone Number [facility] ([place]) 1 [place] [address] * C3 complement (05/04/2021 11:17 AM RETORT OPERATOR) Complement C3 136 90 - 180 mg/dL [facility] ([place]) Comment:Testing performed by : [facility], [address] [place] [address]., [id number] Blood 05/04/2021 11:1 7 AM RETORT OPERATOR 05/04/2021 4:13 PM RETORT OPERATOR Carolina Delarosa MD LAB BLOOD ORDERABLES Final Result Performing Organization Address City/[facility]/ZIP Co de Phone Number [facility] ([place]) 1 [facility] [place] [address] * C4 complement (05/04/2021 11:17 AM RETORT OPERATOR) Complement C4 22 10 - 40 mg/dL [facility] ([place]) Comment:Testing performed by : [facility], [address] [place] [address], [place]., [address] Blood 05/04/2021 11:1 7 AM RETORT OPERATOR 05/04/2021 4:13 PM RETORT OPERATOR Carolina Delarosa MD LAB BLOOD ORDERABLES Final Result [facility] ([place]) 1 [facility] Department [place] [address] * TB test, quantiferon gold (05/04/2021 11:17 AM RETORT OPERATOR) Quantiferon TB Gold Negative Negative [facility] ([place]) Comment: No interferon-gamma response to M. tuberculosis antigens was detected. Latent infection with M. tuberculosis is unlikely. A single negative result does not exclude infection with M. tuberculosis. In patients at high risk for M.tuberculosis infection, a second test should be considered in accordance with the 2017 ATS/IDSA/CDC Clinical Practice Guidelines for Diagnosis of Tuberculosis in Adults and Children [Lewinsohn DM et. al. Clin. Infect. Dis. 2017;64(2):111-115]. The reference range for the 'TB1 Ag minus Nil Result' and 'TB2 Ag minus Nil Result' is an Interferon-gamma level <0.35 IU/mL. TB-Nil 0.00 IUnits/mL [facility] ([place]) TB2-Nil 0.00 IUnits/mL [facility] ([place]) Mitogen-Nil 8.24 IUnits/mL [facility] ([place]) NIL 0.01 IUnits/mL [facility] ([place]) Comment: Test Performed by: [place] [address] Mill [employer]eder: Dima Travis M.D. Ph.D.; CLIA# [id number] Blood 05/04/2021 11:1 7 AM RETORT OPERATOR 05/04/2021 12:25 PM RETORT OPERATOR Carolina Delarosa MD LAB BLOOD ORDERABLES Final Result [facility] ([place]) 1 [facility] [place] [address] * Anti-double stranded DNA antibodies (05/04/2021 11:08 AM RETORT OPERATOR) Anti-double stranded DNA, IgG Negative Negative [facility] ([place]) Comment:Testing performed by : [facility], [address] [place] [address]., [id number] Blood 05/04/2021 11:0 8 AM RETORT OPERATOR 05/06/2021 9:09 AM RETORT OPERATOR us Carolina Delarosa MD LAB BLOOD ORDERABLES Final Result Performing Organization Address City/[facility] Co de Phone Number [facility] ([place]) 1 [facility] [place] [address] documented in this encounter Visit Diagnoses Diagnosis High risk medication use Systemic lupus erythematosus, unspecified SLE type, unspecified organ involvement status (HCC) documented in this encounter Care Teams Project Hire Relationship Specialty [place] [address] [address] [place] [id number] PCP - General 07/04/19 [place] [address] [address] [place] [address] 11/16/18 Ernie Shaw MD [address] [place] [address] [address] [place] [address] Casting Coordinator Obstetrics and Gynecology 06/10/20 documented as of this encounter
--- OUTSIDE RECORDS SUMMARY | 2024-02-24 19:59 | XMS_ITS | Encounter Summary ---
Author Organization [facility] Healthcare Address [address] [place] [address] Care Team Providers Care Cloth Printer Name Role Phone Huseyin Dangelo MD Unavailable Brian Mon MD Primary Care Provider + Ernie Shaw MD Unavailable [phone] Reason for Visit * Reason Comments Cough Vaginitis/Bacterial Vaginosis Encounter Details Date Type Department Care Team (Late st Contact Info) Description 07/25/2021 6:42 AM CDT - 07/25/2021 9:05 AM CDT Emergency [facility] Emergency Department [address] [place] [address] Esau Perry MD [address] [place] [address] Acute bronchitis, unspecified organism (Primary Dx); Yeast vaginitis Discharge Disposition: Discharge to home or self [...] a nursing home (including now)? No 01/01/2021 Vendor Depression Scale Answer Date Recorded Vendor Depression Scale Total 11 01/11/2021 The thought [...] Sign Reading Time Taken Comments Blood Pressure 127/83 07/25/2021 6:46 AM CDT Pulse 70 07/25/2021 6:46 AM CDT Temperature 36.6 ??C (97.9 ??F) 07/25/2021 6:46 AM CD T Respiratory Rate 18 07/25/2021 6:46 AM CDT Oxygen Saturation 100% 07/25/2021 6:46 AM CDT Inhaled Oxygen Concentration - - Weight 79.4 kg (175 lb) 07/25/2021 6:46 AM CDT Height - - Body Mass Index 31 07/16/2021 8:19 AM CDT documented in this encounter Discharge Diagnoses Diagnosis Acute bronchitis, unspecified - ACUTE BRONCHITIS, UNSPECIFIED Personal history of nicotine dependence - PERSONAL HISTORY OF NICOTINE DEPENDENCE documented in this encounter Discharge Instructions * Discharge Instructions* Esau Perry MD - 07/25/2021 8:53 AM CDT Take benzonatate as directed. Take Diflucan 1 dose. Follow-up with your primary care doctor. * Attachments The following attachments cannot be sent through Care Everywhere. * Bronchitis, No Antibiotic (Adult) (Zimbabwean) documented in this encounter Medications at Time of Discharge valACYclovir (VALTREX) 500 mg tablet 03/09/2021 doxycycline (VIBRAMYCIN) 100 mg capsuleIndicatio ns:Cough productive of purulent sputum Take 1 tablet/capsule (100 mg total) by mouth 2 (two) times a day for 10 days 20 tablet/capsul e 07/16/2021 2 acetaminophen 500 mg capsuleIndicatio ns:Pain Take 2 [...] for muscle spasms 30 tablet 01/03/2021 3 fluconazole (DIFLUCAN) 150 mg tablet Take 1 tablet daily for 2 days. 2 tablet 07/25/2021 3 hydrocortisone (ANUSOL-HC) 2.5 % rectal cream Insert 1 applicator rectally 1-2 times daily as needed when hemorrhoids are flared up. 30 g 5 03/04/2021 3 hydrOXYchloroQUI NE (PLAQUENIL) 200 mg tablet Take 2 tablets (400 mg total) by mouth daily 60 tablet 1 07/22/2021 2 lidocaine viscous (XYLOCAINE) 2 % solutionIndicati ons:Mouth [...] 30 tablet 11 01/03/2021 3 PNV with whjerzq-luoj-EB 27 mg iron- 1 mg tabletIndication s:Vitamin Deficiency Prevention Take 1 tablet by mouth daily 30 tablet 1 01/04/2021 3 predniSONE (DELTASONE) 2.5 mg tablet TAKE 1 TABLET (2.5 MG) BY MOUTH DAILY TOTAL DOSE OF 7.5 MG DAILY 60 tablet 06/21/2021 2 promethazine-DM (PROMETHAZINE-DM ) 1.25-3 mg/mL syrup Take 5 mL by mouth 4 (four) times a day as needed for cough (And runny nose) Collaborating physician Jorge Arriaga MD 118 mL 03/09/2021 3 sertraline (ZOLOFT) 25 mg tablet 10/18/2020 2 simethicone (MYLICON) 80 mg chewable tabletIndication s:Flatulence Take 1 tablet (80 mg total) by mouth 4 (four) times a day as needed for flatulence 30 tablet 01/03/2021 3 documented as of this encounter Ordered Prescriptions Prescription Sig Dispense Quantity Refills Last Filled Start Date End Date fluconazole (DIFLUCAN) 150 mg tablet Take 1 tablet daily for 2 days. 2 tablet 07/25/2021 3 benzonatate (TESSALON) 100 mg capsuleIndications :Cough Take 1 capsule (100 mg total) by mouth 3 (three) times a day as needed for cough 20 capsule 07/25/2021 3 fluconazole (DIFLUCAN) 150 mg tablet Take 1 tablet orally as directed. 1 tablet 07/25/2021 2 benzonatate (TESSALON) 100 mg capsuleIndications :Cough Take 1 capsule (100 mg total) by mouth 3 (three) times a day as needed for cough 20 capsule 07/25/2021 2 documented in this encounter Discharge Disposition Disposition Code Departure Means Destination Discharge to home or self care documented in this encounter ED Notes * Esau Perry MD - 07/25/2021 7:32 AM CDT Chief Complaint Patient presents with ??? Cough ??? Vaginitis/Bacterial Vaginosis [facility] 07/25/2021 7:32 AM Carito Madison is a 31 y.o. female former smoker with a h/o lupus, lupus nephritis, rheumatoid arthritis, asthma, seizures, anemia, and anxiety who presents to the ED with cough for 3 weeks. Patient reports associated chest pain. She states that she recently completed a course of doxycycline, but her symptoms have not improved. She reports taking Robitussin and Mucinex without relief. Additionally, she reports vaginal pain and pruritus for 1-2 days, and states that she is concerned about candidiasis. She denies fever or SOB. No other complaints at this time. Per chart review: Patient presented to urgent care on 07/16/21 c/o productive cough. Negative for COVID-19 and influenza A/B. Prescribed doxycycline. Past Medical History: Diagnosis Date ??? Anemia [...] Former Smoker Quit date: 12/28/2018 Years since quittin.5 ??? Smokeless tobacco: Never Used Vaping Use ??? Vaping Use: Never used Substance Use Topics ??? Alcohol use: Yes Comment: occasionally ??? Drug use: Not Currently Types: Marijuana Comment: 01/09 - denies Review of Systems Review of Systems Constitutional: Negative for chills and fever. HENT: Negative for ear pain and sore throat. Eyes: Negative for pain and visual disturbance. Respiratory: Positive for cough. Negative for shortness of breath. Cardiovascular: Positive for chest pain. Negative for leg swelling. Gastrointestinal: Negative for abdominal pain, diarrhea, nausea and vomiting. Genitourinary: Positive for vaginal pain. Negative for difficulty urinating. Positive for vaginal pruritus. Musculoskeletal: Negative for myalgias and neck pain. Skin: Negative for rash and wound. Neurological: Negative for dizziness and headaches. Psychiatric/Behavioral: Negative for behavioral problems. Physical Exam ED Triage Vitals Temp Pulse Resp BP SpO2 07/25/21 0646 07/25/21 0645 07/25/21 0646 07/25/21 0645 07/25/21 0645 36.6 ??C (97.9 ??F) 69 18 127/83 90 % Temp src Heart Rate Source Patient Position BP Location FiO2 (%) -- -- -- -- -- Height Height Method Weight Weight Method -- -- 07/25/21 0646 -- 79.4 kg (175 lb) Physical Exam Vitals and nursing note reviewed. Exam conducted with a service observer present. Constitutional: General: She is not in acute distress. HENT: Head: Normocephalic and atraumatic. Nose: Nose normal. Mouth/Throat: Mouth: Mucous membranes are moist. Pharynx: Oropharynx is clear. No oropharyngeal exudate or posterior oropharyngeal erythema. Eyes: Extraocular Movements: Extraocular movements intact. Conjunctiva/sclera: Conjunctivae normal. Cardiovascular: Rate and Rhythm: Normal rate and regular rhythm. Pulmonary: Effort: Pulmonary effort is normal. No respiratory distress. Breath sounds: Normal breath sounds. Abdominal: Palpations: Abdomen is soft. Tenderness: There is no abdominal tenderness. Genitourinary: Vagina: Vaginal discharge (minimal white discharge) present. Comments: Erythema to labia. Musculoskeletal: Cervical back: Normal range of motion and neck supple. Skin: General: Skin is warm and dry. Neurological: General: No focal deficit present. Mental Status: She is alert and oriented to person, place, and time. Procedures Labs Reviewed POCT HCG, URINE - Normal Result Value HCG, ur, POC Negative Lot Number [id number] QC Backgroud Clear Acceptable QC Control Line Acceptable INFLUENZA A/B, RSV, AND COVID-19 PCR COVID-19 RNA Negative Influenza A RNA Negative Influenza B RNA Negative RSV RNA Negative Narrative: Is the Patient experiencing symptoms consistent with COVID?->Yes Date of Symptom Onset->07/04/21 Reason for testing?->Symptomatic GRAM STAIN YEAST Direct Specimen Exam Value: Stain: Positive* Moderate Yeast TRICHOMONAS ANTIGEN Trichomonas Ag Negative N. GONORRHOEAE/C. TRACHOMATIS AMPLIFICATION XR Chest 1 View Final Result BP 127/83 Pulse 70 Temp 36.6 ??C (97.9 ??F) Resp 18 Wt 79.4 kg (175 lb) SpO2 100% BMI 31.00 kg/m?? MDM Number of Diagnoses or Management Options Amount and/or Complexity of Data Reviewed Clinical lab tests: ordered and reviewed Tests in the radiology section of CPT??: ordered and reviewed Risk of Complications, Morbidity, and/or Mortality Presenting problems: moderate Diagnostic procedures: moderate Management options: moderate General comments: Patient has persistent cough. She has been on antibiotics. Also has yeast infection. X-ray negative. Will put her on Tessalon and Diflucan. Patient has an inhaler at home. Patient Progress Patient progress: stable Final diagnoses: Acute bronchitis, unspecified organism This note is prepared by Soni Dietz, acting as a scribe for Esau Perry MD. I electronically signed this note at 3:39 PM on 07/25/2021. I, Esau Perry MD, have personally performed the services described in the documentation, reviewed and edited the documentation which was dictated to the scribe in my presence, and it accurately records my words and actions. Soni Dietz 07/25/21 0737 Esau Perry MD 07/25/21 1540 * Chitra Paul RN - 07/25/2021 6:42 AM CDT Patient arrives for evaluation of cough x1 week and a yeast infection. Patient states that she wentto urgent care last week for her cough and was prescribed doxycycline. Patient states that her yeast infection started after the antibiotics. Patient denies fever. documented in this encounter Plan of Treatment Not on file documented as of this encounter Procedures Procedure Name Priority Date/Time Associated Diagnosis Comments XR CHEST 1 VIEW ED 07/25/2021 7:34 AM CDT N. GONORRHOEAE/C. TRACHOMATIS AMPLIFICATION STAT 07/25/2021 7:27 AM CDT GRAM STAIN YEAST Routine 07/25/2021 7:27 AM CDT TRICHOMONAS ANTIGEN Routine 07/25/2021 7 :27 AM CDT POCT HCG, URINE Routine 07/25/2021 7:09 AM CDT INFLUENZA A/B, RSV, AND COVID-19 PCR Routine 07/25/2021 7:01 AM CDT documented in this encounter Results * XR Chest 1 View (07/25/2021 7:34 AM CDT) Anatomical Region Laterality Modality Body, Chest N/A Computed Radiogr aphy 07/25/2021 7:53 AM CDT Narrative 07/25/2021 7:53 AM CDT EXAM DESCRIPTION: ?? XR CHEST 1 VIEW REASON FOR STUDY: ?? chest pain ?? Patient arrives for evaluation of cough x1 week and a yeast infection. Patient states that she went to urgent care last week for her cough and was prescribed doxycycline. Patient states that her yeast infection started after the antibiotics. Patient ?? denies fever. ? TECHNIQUE: ?? One ??radiographic view of the chest acquired. COMPARISON: ?? 03/09/2021 FINDINGS: LUNGS/PLEURA: ?? No focal consolidation or pneumothorax. No pleural effusion. HEART/MEDIASTINUM: ?? Heart size is normal. Normal mediastinal and hilar contours. HARDWARE/LINES/TUBES: ?? None. BONES: ?? No acute findings. OTHER: ?? No other significant finding. IMPRESSION: ??No acute cardiopulmonary disease. THIS IS AN ELECTRONICALLY VERIFIED FINAL REPORT 07/25/2021 7:53 AM - Electronically signed by ??Shey Jamison M.D. LL: CRIS D: ??07/25/2021 7:53 AM T: ??07/25/2021 7:53 AM Report ID: [id number] Reading Location: ??[id number] Procedure Note Shey Jamison MD - 07/25/2021 EXAM DESCRIPTION: XR CHEST 1 VIEW REASON FOR STUDY: chest pain Patient arrives for evaluation of cough x1 week and a yeast infection.Patient states that she went to urgent care last week for her cough and wasprescribed doxycycline. Patient states that her yeast infection started after the antibiotics. Patient denies fever. TECHNIQUE: One radiographic view of the chest acquired. COMPARISON: 03/09/2021 FINDINGS: LUNGS/PLEURA: No focal consolidation or pneumothorax. No pleuraleffusion. HEART/MEDIASTINUM: Heart size is normal. Normal mediastinal and hilar contours. HARDWARE/LINES/TUBES: None. BONES: No acute findings. OTHER: No other significant finding. IMPRESSION: No acute cardiopulmonary disease. THIS IS AN ELECTRONICALLY VERIFIED FINAL REPORT 07/25/2021 7:53 AM - Electronically signed by Shye Jamison M.D. LL: LL Report ID: [id number] Reading Location: [place] [address] Esau Perry MD IMG XR PROCEDURES Final Resu lt * Trichomonas antigen Vaginal (07/25/2021 7:27 AM CDT) Trichomonas Ag Negative Negative [facility]OSEPH [facility] ([place]) Vaginal 07/25/2021 7:27 AM CDT 07/25/2021 7:29 AM CDT Esau Perry MD LAB MICROBIOLOGY - GENERAL O RDERABLES Final Result [facility] ([place]) 1 [facility] Department [place] [address] * N. gonorrhoeae/C. trachomatis Amplification Endocervical (07/25/2021 7:27 AM CDT) C. trachomatis Not detected Not detected [facility] ([place]) Comment:Testing performed by : [facility], [address] [place] [address], [place]., [address] N. gonorrhoeae Not detected Not detected [facility]ITA [facility] ([place]) Comment: Testing performed by the [facility]. This assay detects Chlamydia trachomatis and Neisseria gonorrhoeae by nucleic acid amplification testing (NAAT). This test is approved by the [place] Food and Drug Administration and the performance characteristics have been verified by the laboratory. The performance characteristics of this test have not been evaluated in women or individuals less than 16 years of age. Testing performed by: [facility], [address] [place] [address], [place]., [address] Endocervical (None) 07/26/19 7:27 AM CDT 07/25/2021 1:35 PM CDT us Esau Perry MD LAB MICROBIOLOGY - GENERAL O RDERABLES Final Result Performing Organization Address [facility]/ZIP Co de Phone Number ARPITA [facility] ([place]) 1 [facility] [place] [address] * Gram stain yeast Cervical (07/25/2021 7:27 AM CDT) Direct Specimen Exam Stain: Pos itive Moderate Yeast [facility] ([place]) Cervical 07/25/2021 7:27 AM CDT 07/25/2021 1:30 PM CDT Esau Perry MD LAB MICROBIOLOGY - GENERAL O RDERABLES Final Result Performing Organization Address [facility]/ZIP Co de Phone Number [facility]ITA [facility] ([place]) [address] [place] [address] [place] [address] * POCT hCG, urine (07/25/2021 7:09 AM CDT) HCG, ur, POC Negative Lot Number [id number] QC Backgroud Clear Acceptable QC Control Line Acceptable Urine 07/25/2021 7:09 AM CDT Esau Perry MD POINT OF CARE TEST ORDERABLE S Final Result * Influenza A/B, RSV, and COVID-19 PCR Nasopharyngeal (07/25/2021 7:01 AM CDT) COVID-19 RNA Negative Negative [facility] ([place]) Influenza A RNA Negative Negative [facility] ([place]) Influenza B RNA Negative Negative [facility] ([place]) RSV RNA Negative Negative [facility] ([place]) Comment: Interpretive data: This test is performed using the [employer] Xpert Xpress CoV-2/Flu/RSV plus assay. This is [...] infection. Interpretive Data last revised 2021. Nasopharyngeal 07/25/2021 7: 01 AM CDT 07/25/2021 7:03 AM CDT Narrative [facility] ([place]) - 07/25/2021 7:45 AM CDT Is the Patient experiencing symptoms consistent with COVID?->Yes Date of Symptom Onset->07/04/21 Reason for testing?->Symptomatic Esau Perry MD LAB MICROBIOLOGY - GENERAL O RDERABLES Final Result [facility] ([place]) 1 [facility] Department [place] [address] documented in this encounter Visit Diagnoses Diagnosis Acute bronchitis, unspecified organism- Primary Yeast vaginitis documented in this encounter Discontinued Medications Medication Sig Discontinue Reason Start Date End Da te fluconazole (DIFLUCAN) 150 mg tablet 02/04/2021 07/25/2021 benzonatate (TESSALON) 100 mg capsuleIndications:Cough Take 1 capsule (100 mg total) by mouth 3 (three) times a day as needed for cough Reorder 07/25/2021 07/25/2021 fluconazole (DIFLUCAN) 150 mg tablet Take 1 tablet orally as directed. Reorder 07/25/2021 07/25/2021 documented as of this encounter Additional Health Concerns Infection Onset Date Last Indicated Resolved Time COVID: Suspected 07/25/2021 07/25/2021 07/25/2021 7:46 AM CDT documented as of this encounter Care Teams Cloth Printer Relationship Specialty [place] [address] [address] [facility] [place] [address] PCP - General 07/04/19 [place] [address] [address] [place] [address] 11/16/18 Ernie Shaw MD [address] [place] [address] [address] [place] [address] Shop Superintendent Obstetrics and Gynecology 06/10/20 documented as of this encounter
--- OUTSIDE RECORDS SUMMARY | 2024-02-24 19:59 | XMS_ITS | Encounter Summary ---
Author Organization [facility] [employer] [facility] Address [address] [place] [address] Phone Care Team Providers Care Interventionist Name Role Phone Huseyin Dangelo MD Unavailable [phone] Brian Mon MD Primary Care Provider + Ernie hSaw MD Unavailable [phone] Encounter Details Date Type Department Care Team (Late st Contact Info) Description 10/21/2021 Orders Only [facility] Endocrinology Metabolism and Lipid [address], [address] [place] [address] Tran Lauren RMA Social History Tobacco Use Types Packs/Day Years [...] and Family Not on file 01/01/2021 Attends [employer] Not on file 01/01 Active Member [...] in a chcf (including now)? No 01/01/2021 [place] Depression Scale Answer Date Recorded [place] Depression Scale Total 11 01/11/2021 The thought [...] Date End Date predniSONE (DELTASONE) 5 mg tablet Take 1 tablet (5 mg) by mouth daily 30 tablet 3 10/21/2021 11/16/2021 documented in this encounter Plan of Treatment Not on file documented as of this encounter Visit Diagnoses Not on filedocumented in this encounter Discontinued Medications Medication Sig Discontinue Reason Start Date End Da te predniSONE (DELTASONE) 5 mg tablet TAKE 1 TABLET BY MOUTH EVERY DAY Reorder 10/18/2021 10/21/2021 documented as of this encounter Care Teams Interventionist Relationship Specialty [place] [address] [address] [facility] [address] [place] [address] PCP - General 07/04/19 [place] [address] [address] [place] [address] 11/16/18 Ernie hSaw MD [address] [place] [address] Executive Coordinator Obstetrics and Gynecology 06/10/20 documented as of this encounter
--- OUTSIDE RECORDS SUMMARY | 2024-02-24 19:59 | XMS_ITS | Encounter Summary ---
Author Organization [facility] Healthcare Address [address] [place] [address] Care Team Providers Care Woodyard Crane Operator Name Role Phone Huseyin Dangelo MD Unavailable [phone] Brian Mon MD Primary Care Provider + Ernie Shaw MD Unavailable [phone] Encounter Details Date Type Department Care Team (Late st Contact Info) Description 03/24/2022 8:10 AM GENERAL OPERATIONS AGENT Lab [address] [address] Adrenal insufficiency (CMS/HCC) (HCC) Social History Tobacco [...] and Family Not on file 01/01/2021 Attends [employer] Not on file 01/01 Active Member [...] a skilled nursing (including now)? No 01/01/2021 [place] Depression Scale Answer Date Recorded [place] Depression Scale Total 11 01/11/2021 The thought [...] Procedure Name Priority Date/Time Associated Diagnosis Comments DHEA-SULFATE Routine 03/24/2022 8:18 AM GENERAL OPERATIONS AGENT Adrenal insufficiency (CMS/HCC) (HCC) ACTH Routine 03/24/2022 8:18 AM GENERAL OPERATIONS AGENT Adrenal insufficiency (CMS/HCC) (HCC) CORTISOL Routine 03/24/2022 8:18 AM GENERAL OPERATIONS AGENT Adrenal insufficiency (CMS/HCC) (HCC) documented in this encounter Results * (ABNORMAL) DHEA-sulfate (03/24/2022 8:18 AM GENERAL OPERATIONS AGENT) DHEA-S 11.0(L) 98.8 - 340.0 mcg/dL [facility] ([place]) Comment:Testing performed by : [facility], [address] [place] [address]., [address] Blood 03/24/2022 8:18 AM GENERAL OPERATIONS AGENT 03/24/2022 2:31 PM GENERAL OPERATIONS AGENT Darius Fernandez MD LAB BLOOD ORDERABLES Final Resul t [facility] ([place]) [address] [place] [address] [place] [address] * ACTH (03/24/2022 8:18 AM GENERAL OPERATIONS AGENT) Pathologist [facility] ACTH 13.3 7.0 - 63.0 pg/mL [facility]ITA MARTIN ([place]) Comment:Testing performed by : [facility], [address] [place] [address], [place]., [address] Blood 03/24/2022 8:18 AM GENERAL OPERATIONS AGENT 03/24/2022 2:31 PM GENERAL OPERATIONS AGENT Darius Fernandez MD LAB BLOOD ORDERABLES Final Resul t [facility] ([place]) 1 [facility] [place] [employer] [place] [address] * Cortisol (03/24/2022 8:18 AM GENERAL OPERATIONS AGENT) Cortisol 5.0 4.8 - 19.5 mcg/dl [facility]ITA MARTIN ([place]) Comment: Interpretive Data Normal Range: ??4.8 - 19.5 mcg/dL; ??Evening: ??Half of morning value. ?? This analyte undergoes marked diurnal variation. ??Ranges indicated apply to morning specimens. ?? Current interpretive data was last revised 2018. Testing performed by: [facility], [address] [place] [address], [place]., [address] Blood 03/24/2022 8:18 AM GENERAL OPERATIONS AGENT 03/24/2022 11:18 AM GENERAL OPERATIONS AGENT us Darius Fernandez MD LAB BLOOD ORDERABLES Final Resul t ARPITA MARTIN ([place]) 1 [facility] Department [place] [address] documented in this encounter Visit Diagnoses Diagnosis Adrenal insufficiency (HCC) Glucocorticoid deficiency documented in this encounter Care Teams Woodyard Crane Operator Relationship Specialty [place] [address] [address] [facility] [place] [address] PCP - General 07/04/19 [place] [address] [address] [facility] [place] [address] 11/16/18 Ernie Shaw MD [address] [place] [address] [address] [place] [address] Ruby [employer] Rails Software Developer Obstetrics and Gynecology 06/10/20 documented as of this encounter
--- OUTSIDE RECORDS SUMMARY | 2024-02-24 19:59 | XMS_ITS | Encounter Summary ---
Author Organization [facility] Address [address] [place] [address] Phone Care Team Providers Care Supervisor Plate Forming Name Role Phone Huseyin Dangelo MD Unavailable [phone] Brian Mon MD Primary Care Provider + Ernie Shaw MD Unavailable [phone] Encounter Details Date Type Department Care Team (Late st Contact Info) Description 04/14/2021 12:30 PM FREELANCE ART DIRECTOR Telemedicine [facility] Rheumatology [facility] Advanced Medicine 5th [place] [address] [place] [address] Lupus (CMS/HCC) (HCC) (Primary Dx) [...] in a chcf (including now)? No 01/01/2021 [place] Depression Scale Answer Date Recorded [place] Depression Scale Total 11 01/11/2021 The thought [...] - Inhaled Oxygen Concentration - - Weight 73.9 kg (163 lb) 04/14/2021 12:02 PM FREELANCE ART DIRECTOR Height 157.5 cm (5' 2 ) 04/14/2021 12:02 PM FREELANCE ART DIRECTOR Body Mass Index 29.81 04/14/2021 12:02 PM FREELANCE ART DIRECTOR documented in this encounter Progress Notes * Carolina Delarosa MD - 04/14/2021 12:30 PM CST PATIENT NAME: Carito Madison : 1990 04/14/2021 This was a telemedicine visit with Carito Madison alone which took place via Telephone No Internet/Computer. During the visit, I was located in the office and the patient was located at home in the [facility]. The patient visit started at 12.36 pm and ended at 12.59 pm . My total encounter timeon 04/14/2021 was 23 minutes which was spent in the activities documented in the note. This includestime spent prior to the visit and after the visit in direct care of the patient. This time does notinclude time spent in any separately reportable services. The patient: has been informed that the visit may not be secure and acknowledged the information. The option of participating in a telephone or video visit during the [address] explained to them. After being given an opportunity to ask questions about and discuss this type of visit, they verbally consented to proceeding with the telephone/video visit and understand thatthis service replaces an office visit. HISTORY OF PRESENT ILLNESS: ia a 30 y.o. female with SLE. The patient was diagnosed with SLE in 2018 when she flared after a 2nd trimester loss. She was previously healthy and reported no symptoms through her . She has a positive BARAK 1:1280 centromere and homogeneous positive. She also has a positive double- stranded DNA, EMBEDDED SOFTWARE TEST ENGINEER antibody and a low C4 and C3 [...] mg a day Interim She has about 3 months at this point and reports that she having left sided arm and is beginning to notice some pleuritic-type chest pain as well as joint pain and fatigue. She would like to resume Benlysta. She no longer has insurance at this point. We did paperwork for patient assistance on self injectables. She continues to report some left arm pain over the last 2 weeks. She is however still hesitant on if she wants to do Benlysta. Had ordered labs were in February which she has not yet completed She also developed COVID-19 infection on February and was treated with a monoclonal antibody . She feels that this flare started after she received her monoclonal antibody infusion. She is not currently breast feeding She remains on hydroxychloroquine 200 mg a day. She continues on prednisone 7.5 mg daily ALLERGIES: Allergies Allergen Reactions ??? Macrobid [Nitrofurantoin Monohyd/M-Cryst] Rash and Blisters Rash and Blisters in her mouth. ??? Methylprednisolone Anaphylaxis and Syncope Syncope ??? Penicillins Hives and Rash Prescribed keflex 08/2020 ??? Amoxicillin Rash Prescribed keflex in 08/2020 ??? Azathioprine Hives ??? Escitalopram Other (See comments) and Rash Caused seizures Caused seizures Caused seizures ??? Reglan [Metoclopramide] Dizziness ??? Sulfamethoxazole-Trimethoprim Other (See comments) Cannot take bactrim because of lupus ??? Venlafaxine Itching CURRENT MEDICATION: Current Outpatient Medications: ??? pantoprazole DR (PROTONIX) 40 mg EC tablet, Take 1 tablet (40 mg total) by mouth daily, Disp: 30 tablet, Rfl: 11 ??? predniSONE (DELTASONE) 2.5 mg tablet, Take 3 tablets (7.5 mg) by mouth daily, Disp: 30 tablet, Rfl: 2 ??? predniSONE (DELTASONE) 5 mg tablet, TAKE 1 TABLET BY MOUTH EVERY DAY, Disp: 30 tablet, Rfl: 5 ??? promethazine-DM (PROMETHAZINE-DM) 1.25-3 mg/mL syrup, Take 5 mL by mouth 4 (four) times a day as needed for cough (And runny nose) Collaborating physician Jorge Arriaga MD, Disp: 118 mL, Rfl: 0 ??? sertraline (ZOLOFT) 25 mg tablet, , Disp: , Rfl: ??? valACYclovir (VALTREX) 500 mg tablet, , Disp: , Rfl: ??? acetaminophen 500 mg capsule, Take 2 capsules (1,000 mg total) by mouth every 6 (six) hours (Patient not taking: No sig reported), Disp: 30 tablet, Rfl: 0 ? ? al & mag hydroxide with xbarcywhume-hyqbrzcgbcupclk-mvvvqsrya (MAGIC MOUTHWASH) suspension 1-1-1, Swish and swallow 10 mL every 4 (four) hours as needed (oral ulcers) (Patient not taking: No sig reported), Disp: 300 mL, Rfl: 0 ??? azithromycin (Zithromax Z-Maximilian) 250 mg tablet, Take 1 tablet (250 mg total) by mouth daily Take first 2 tablets together, then 1 every day until finished. Collaborating physician Jorge Arriaga MD(Patient not taking: Reported on 04/14/2021), Disp: 6 tablet, Rfl: 0 ??? benzonatate (TESSALON) 100 mg capsule, , Disp: , Rfl: ??? cephalexin (KEFLEX) 500 mg capsule, Take 1 capsule (500 mg total) by mouth 4 (four) times a day(Patient not taking: Reported on 04/14/2021), Disp: 28 capsule, Rfl: 0 ??? cyclobenzaprine (FLEXERIL) 5 mg tablet, Take 1 tablet (5 mg total) by mouth 3 (three) times a day as needed for muscle spasms (Patient not taking: No sig reported), Disp: 30 tablet, Rfl: 0 ??? fluconazole (DIFLUCAN) 150 mg tablet, , Disp: , Rfl: ??? hydrocortisone (ANUSOL-HC) 2.5 % rectal cream, Insert 1 applicator rectally 1-2 times daily as needed when hemorrhoids are flared up. (Patient not taking: Reported on 04/14/2021), Disp: 30 g, Rfl:5 ??? hydrOXYchloroQUINE (PLAQUENIL) 200 mg tablet, Take 2 tablets (400 mg total) by mouth daily (Patient not taking: Reported on 04/14/2021), Disp: 60 tablet, Rfl: 5 ??? norgestimate-ethinyl estradioL (ORTHO-CYCLEN) 0.25-35 mg-mcg per tablet, Take 1 tablet by mouthdaily (Patient not taking: Reported on 04/14/2021), Disp: 28 tablet, Rfl: 0 ??? PNV with ivpsgcq-yqnd-ME 27 mg iron- 1 mg tablet, Take 1 tablet by mouth daily (Patient not taking: No sig reported), Disp: 30 tablet, Rfl: 1 ??? simethicone (MYLICON) 80 mg chewable tablet, Take 1 tablet (80 mg total) by mouth 4 (four) times a day as needed for flatulence (Patient not taking: No sig reported), Disp: 30 tablet, Rfl: 0 PHYSICAL EXAM: Vitals Ht 157.5 cm (5' 2 ) Wt 73.9 kg (163 lb) BMI 29.81 kg/m?? Physical Exam Not performed LABORATORY DATA: Lab Results Component Value Date WBC 8.5 03/21/2021 HGB 12.4 03/21/2021 HCT 37.0 03/21/2021 MCV 88.1 03/21/2021 LABPLAT 285 03/21/2021 Lab Results Component Value Date AST 16 02/13/2021 ALT 20 02/13/2021 CREATININE 0.58 (L) 03/21/2021 Lab Results Component Value Date SEDRATE 14 02/05/2021 Lab Results Component Value Date CRP 10.7 (H) 02/05/2021 ASSESSMENT AND PLAN: SLE In conclusion this is a 29-year-old female with a diagnosis of lupus. At this point she is 2 months and seems to be experiencing flare symptoms. I would like for her to resume Benlysta. Since she does not have insurance but I am hopeful that she can get the medication through basis patient assistance. I advised her to do her labs as soon as possible, these were ordered for her 4 weeks ago. Previously her complements and double-stranded were fairly reflective of disease She is aware that she would need to take prednisone taper if her symptoms continue She will continue hydroxychloroquine 200 mg a day and prednisone at 7.5 mg daily which she takes for longstanding adrenal insufficiency DISPOSITION: The patient will return follow up in 2 months Carolina Delarosa MD LANCE ART DIRECTOR documented in this encounter Plan of Treatment Not on file documented as of this encounter Visit Diagnoses Diagnosis Lupus- Primary Systemic lupus erythematosus documented in this encounter Historical Medications * This list may reflect changes made after this encounter. Medication Sig Dispense Quantity Refills Last Filled Start D ate End Date valACYclovir (VALTREX) 500 mg tablet 03/09/2021 added in this encounter Care Teams Supervisor Plate Forming Relationship Specialty [place] [address] [address] [place] [address] PCP - General 07/04/19 [place] [address] [address] [place] [address] 11/16/18 Ernie Shaw MD [address] [place] [address] [address] [place] [address] Slater Apprentice Obstetrics and Gynecology 06/10/20 documented as of this encounter
--- OUTSIDE RECORDS SUMMARY | 2024-02-24 19:59 | XMS_ITS | Encounter Summary ---
Author Organization [facility] Address [address] [place] [address] Phone Care Team Providers Care Stator Plate Washer Name Role Phone Huseyin Dangelo MD Unavailable [phone] Brian Mon MD Primary Care Provider + Ernie Shaw MD Unavailable [phone] Encounter Details Date Type Department Care Team (Late st Contact Info) Description 03/17/2021 Orders Only [facility] Rheumatology [address] [facility] Medical Office Building [address] [place] [address] Nallely Griffiths, [facility] High risk medication use (Primary Dx) Social History Tobacco Use Types [...] a nursing home (including now)? No 01/01/2021 [place] Depression Scale Answer Date Recorded [place] Depression Scale Total 11 01/11/2021 The thought [...] documented as of this encounter Results * TB test, quantiferon gold (05/04/2021 11:17 AM FACULTY CRIMINAL JUSTICE) [facility] Quantiferon TB Gold Negative Negative [facility] [...] [facility] ([place]) Comment: Test Performed by: [place] [address] Dungeon Master: Dima Travis M.D. Ph.D.; CLIA# [id number] Blood 05/04/2021 11:1 7 AM FACULTY CRIMINAL JUSTICE 05/04/2021 12:25 PM FACULTY CRIMINAL JUSTICE us Carolina Delarosa MD LAB BLOOD ORDERABLES Final Result [facility] ([place]) 1 [facility] Department [place] [address] documented in this encounter Visit Diagnoses Diagnosis High risk medication use- Primary documented in this encounter Care Teams Stator Plate Washer Relationship Specialty [place] [address] [facility] [address] [place] [address] PCP - General 07/04/19 [place] [address] [facility] [address] [place] [address] 11/16/18 Ernie Shaw MD [address] [place] [address] [address] [place] [address] Actionscript Developer Obstetrics and Gynecology 06/10/20 documented as of this encounter
--- OUTSIDE RECORDS SUMMARY | 2024-02-24 19:59 | XMS_ITS | Encounter Summary ---
Author Organization [facility] Address [address] [place] [address] Phone Care Team Providers Care Hot Plate Plywood Press Feeder Name Role Phone Huseyin Dangelo MD Unavailable [phone] Brian Mno MD Primary Care Provider + Ernie Shaw MD Unavailable [phone] Reason for Visit * Reason Onset Date Comments possible flare 04/27/2022 Encounter Details Date Type Department Care Team (Late st Contact Info) Description 04/27/2022 Telephone [facility] Rheumatology [facility] 5th Floor [address] [address] Nallely Griffiths, LIBRARY SERVICES ASSISTANT possible flare Social History Tobacco Use Types Packs/Day Years [...] and Family Not on file 01/01/2021 Attends [employer] Not on file 01/01 Active Member [...] in a longterm (including now)? No 01/01/2021 [place] Depression Scale Answer Date Recorded [place] Depression Scale Total 11 01/11/2021 The thought [...] Miscellaneous Notes * Telephone Encounter - Nallely Griffiths CMA - 04/27/2022 2:31 PM CST Pt having some lupus related symptoms and feel she could be flaring. She reports inflammation, joint pain, facial rash and some chest discomfort. Planning to get labs at [facility] tomorrow. SAW OPERATOR documented in this encounter Plan of Treatment Not on file documented as of this encounter Results * Protein / creatinine ratio, urine, random (05/01/2022 6:45 AM BUZZSAW OPERATOR) Protein, ur, quant 27.0 mg/dL [facility] ([place]) Comment: Interpretive Data No reference range established. Current interpretive data was last revised 2018. Creatinine Ur 352.9 mg/dL [facility] ([place]) Comment: Interpretive Data No reference range established. Current interpretive data was last revised 2018. Protein/creatinin e ratio 76.5 0.0 - 180.0 mg/g CR [facility] ([place]) Urine 05/01/2022 6:45 AM BUZZSAW OPERATOR 05/01/2022 8:15 AM BUZZSAW OPERATOR us Carolina Delarosa MD LAB URINE ORDERABLES Final Result [facility] ([place]) 1 [facility] Department [place] [address] * (ABNORMAL) Urinalysis reflex to microscopic and culture Urine (05/01/2022 6:45 AM BUZZSAW OPERATOR) Color, ur Yellow Yellow [facility] ([place]) Clarity, ur Turbid(A) Clear [facility] A ([place]) Specific gravity, ur 1.033(H) 1.003 - 1.030 [facility] ([place]) pH, urine 6.0 [facility] ([place]) Protein, ur ql 1+(A) Negative [facility] ([place]) Glucose, ur ql Negative Negative [facility] [...] Reflex to microscopic UA will be performed. [facility] ([place]) Urine 05/01/2022 6:45 AM BUZZSAW OPERATOR 05/01/2022 8:15 AM BUZZSAW OPERATOR Narrative [facility] ([place]) - 05/01/2022 8:22 AM BUZZSAW OPERATOR ?? Urine pH is affected by diet, medications, systemic acid-base disturbances, and renal tubular function. ??pH may affect urinary stone formation. ??For example, urine pH below 6.0 may help reduce the tendency for calcium phosphate stones and pH greater than 6.0 may reduce the tendency for uric acid stone formation. Source: [facility] [place]. Last revised 03-08-2017 Carolina Delarosa MD LAB MICROBIOLOGY - GENERAL ORDERABLES Final Result Performing Organization Address City/[facility]/ZIP Co de Phone Number FRANCISCOANNAMARIA VERONICA ([place]) 1 [facility] [place] [address] * C4 complement (05/01/2022 6:36 AM BUZZSAW OPERATOR) Complement C4 18 10 - 40 mg/dL [facility] ([place]) Comment:Testing performed by : [facility], [address] [place] [address]., [id number] Blood 05/01/2022 6:36 AM BUZZSAW OPERATOR 05/01/2022 9:32 AM BUZZSAW OPERATOR Carolina Delarosa MD LAB BLOOD ORDERABLES Final Result Performing Organization Address City/[facility]/ZIP Co de Phone Number [facility] ([place]) 1 [facility] [place] [address] * C3 complement (05/01/2022 6:36 AM BUZZSAW OPERATOR) Pathologist [facility] Complement C3 133 90 - 180 mg/dL [facility] ([place]) Comment:Testing performed by : [facility], [address] [place] [address], [place]., [address] Blood 05/01/2022 6:36 AM BUZZSAW OPERATOR 05/01/2022 9:32 AM BUZZSAW OPERATOR Carolina Delarosa MD LAB BLOOD ORDERABLES Final Result [facility] 1 [facility] [place] [address] * CRP (acute phase) (05/01/2022 6:36 AM BUZZSAW OPERATOR) [facility] CRP 5.5 <=10.0 mg/L [facility] ([place]) Blood 05/01/2022 6:36 AM BUZZSAW OPERATOR 05/01/2022 7:59 AM BUZZSAW OPERATOR us Carolina Delarosa MD LAB BLOOD ORDERABLES Final Result [facility] ([place]) 1 [facility] [place] [address] * Erythrocyte sedimentation rate (05/01/2022 6:36 AM BUZZSAW OPERATOR) [facility] Erythrocyte sedimentation rate 19 1 - 20 mm/hr [facility] ([place]) Blood 05/01/2022 6:36 AM BUZZSAW OPERATOR 05/01/2022 7:59 AM BUZZSAW OPERATOR Carolina Delarosa MD LAB BLOOD ORDERABLES Final Result Performing Organization Address City/[facility]/ZIP Co de Phone Number [facility] ([place]) 1 [facility] [place] [address] * (ABNORMAL) Comprehensive metabolic panel (05/01/2022 6:36 AM BUZZSAW OPERATOR) Pathologist [facility] Sodium 140 135 - 145 mmol/L [facility] ([place]) Potassium, pl 3.5 3.3 - 4.9 mmol/L [...] [facility] ([place]) Blood 05/01/2022 6:36 AM BUZZSAW OPERATOR 05/01/2022 7:59 AM BUZZSAW OPERATOR us Carolina Delarosa MD LAB BLOOD ORDERABLES Final Result [facility] ([place]) 1 [facility] Department [place] [address] * (ABNORMAL) CBC with auto differential (05/01/2022 6:36 AM BUZZSAW OPERATOR) WBC 11.9(H) 3.8 - 9.9 K/cumm [facility] [...] [facility] ([place]) Blood 05/01/2022 6:36 AM BUZZSAW OPERATOR 05/01/2022 7:59 AM BUZZSAW OPERATOR us Carolina Delarosa MD LAB BLOOD ORDERABLES Final Result [facility] ([place]) 1 [facility] Department [place] [address] documented in this encounter Visit Diagnoses Diagnosis Systemic lupus erythematosus, unspecified SLE type, unspecified organ involvement status (HCC)- Primary Systemic lupus erythematosus, unspecified SLE type, unspecified organ involvement status (HCC) documented in this encounter Care Teams Hot Plate Plywood Press Feeder Relationship Specialty [place] [address] [address] [facility] [address] [address] PCP - General 07/04/19 [place] [address] [facility] [address] [address] 11/16/18 Ernie Shaw MD [address] [place] [address] [address] [place] [address] Securities Trader Obstetrics and Gynecology 06/10/20 documented as of this encounter
--- OUTSIDE RECORDS SUMMARY | 2024-02-24 19:59 | XMS_ITS | Encounter Summary ---
Author Organization [facility] Address [address] [place] [address] Phone Care Team Providers Care French Weaver Name Role Phone Huseyin Dangelo MD Unavailable [phone] Brian Mno MD Primary Care Provider + Ernie Shaw MD Unavailable Encounter Details Date Type Department Care Team (Latest Contact Info) Description 03/14/2022 4:40 PM PIPE MANUFACTURE SUPERVISOR Telemedicine [facility] Endocrinology Metabolism and Lipid [address] [facility] 13th [place] [address] [place] [address] Darius Fernandez MD [address] [facility] [address] [place] [address] Adrenal insufficiency (CMS/HCC) (HCC) (Primary [...] a senior living (including now)? No 01/01/2021 [place] Depression Scale Answer Date Recorded [place] Depression Scale Total 11 01/11/2021 The thought [...] Progress Notes * Francois Fernandez MD - 03/14/2022 4:40 PM CST Endocrine Patient Visit This was a telemedicine visit with Umer anglin which took place via real-time video connection with Zoom. During the visit, I was located in the office and the patient was located at [facility]wi the [facility]. The patient visit started at 4:35 PM and ended at 4:45 PM. My total encounter time on 03/14/2022 was 20 minutes which was spent in the activities [...] a telephone or video visit during the COVID-19 public [facility] emergency to the patient. After being given [...] with history of lupus which has required half-way steriod use for 2.5 years. Has required high dose in the past up to 60 mg daily. 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 She is currently on 5 mg of prednisone. She wants to come off steroids NAHOMY if she could. Review of Systems Review of systems per HPI and otherwise all other systems are negative. OBJECTIVES Physical exam: There were no vitals taken for this visit. Past Medical History: Diagnosis Date Anemia Anxiety [...] with history of lupus which has required half-way steriod use for 2.5 years. Has required high Dose in the past up to 60 mg daily. 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 Current prednisone dose is 5 mg daily. Plan: Will check 8 AM cortisol, DHEA-s and ACTH level. Francois Fernandez MD Division of Endocrinology, Metabolism and Lipid [facility] MANUFACTURE SUPERVISOR documented in this encounter Plan of Treatment Not on file documented as of this encounter Visit Diagnoses Diagnosis Adrenal insufficiency (HCC)- Primary Glucocorticoid deficiency documented in this encounter Care Teams French Weaver Relationship Specialty [place] [address] [address] [place] [address] PCP - General 07/04/19 [place] [address] [address] [place] [address] 11/16/18 Ernie Shaw MD [address] [place] [address] [address] [place] [address] Heel Coverer Obstetrics and Gynecology 06/10/20 documented as of this encounter
--- OUTSIDE RECORDS SUMMARY | 2024-02-24 19:59 | XMS_ITS | Encounter Summary ---
Author Organization [facility] [employer] [facility] Address [address] [place] [address] Phone Care Team Providers Care Headrig Sawyer Name Role Phone Huseyin Dangelo MD Unavailable [phone] Brian Mon MD Primary Care Provider + Ernie Shaw MD Unavailable Encounter Details Date Type Department Care Team (Late st Contact Info) Description 03/16/2022 3:30 PM MEDICAL ACCOUNTING CLERK Lab [facility] Endocrinology Metabolism and Lipid [address] [facility] 5th [place] [address] [place] [address] Lupus (CMS/HCC) (HCC) Social History Tobacco Use Types [...] and Family Not on file 01/01/2021 Attends [employer] Not on file 01/01 Active Member [...] in a residential (including now)? No 01/01/2021 [place] Depression Scale Answer Date Recorded [place] Depression Scale Total 11 01/11/2021 The thought [...] Diagnosis Comments CBC WITH AUTO DIFFERENTIAL Routine 03/16/2022 3:26 PM MEDICAL ACCOUNTING CLERK Lupus (CMS/HCC) (HCC) COMPREHENSIVE METABOLIC PANEL Routine 03/16/2022 3:26 PM MEDICAL ACCOUNTING CLERK Lupus (CMS/HCC) (HCC) documented in this encounter Results * (ABNORMAL) CBC with auto differential (03/16/2022 3:26 PM MEDICAL ACCOUNTING CLERK) White Blood Count 9.5 3.6 - 11.2 [...] [facility] Blood 03/16/2022 3:26 PM MEDICAL ACCOUNTING CLERK 03/16/2022 3:58 PM MEDICAL ACCOUNTING CLERK Carolina Delarosa MD LAB BLOOD ORDERABLES Final Result [facility] * (ABNORMAL) Comprehensive metabolic panel (03/16/2022 3:26 PM MEDICAL ACCOUNTING CLERK) Total Protein 7.6 6.1 - 8.4 g/dL [...] [facility] Blood 03/16/2022 3:26 PM MEDICAL ACCOUNTING CLERK 03/16/2022 3:58 PM MEDICAL ACCOUNTING CLERK us Carolina Delarosa MD LAB BLOOD ORDERABLES Final Result [facility] documented in this encounter Visit Diagnoses Diagnosis Lupus Systemic lupus erythematosus documented in this encounter Care Teams Headrig Sawyer Relationship Specialty [place] [address] [address] [place] [address] PCP - General 07/04/19 [place] [address] [address] [place] [address] 11/16/18 Ernie Shaw MD [address] [facility] [address] [place] [address] Service Desk Director Obstetrics and Gynecology 06/10/20 documented as of this encounter
--- OUTSIDE RECORDS SUMMARY | 2024-02-24 19:59 | XMS_ITS | Encounter Summary ---
Author Organization [facility] [employer] [facility] Address [address] [place] [address] Phone Care Team Providers Care It Consultant Name Role Phone Huseyin Dangelo MD Unavailable [phone] Brian Mon MD Primary Care Provider + Ernie Shaw MD Unavailable Encounter Details Date Type Department Care Team (Late st Contact Info) Description 03/12/2021 Telephone [facility] Rheumatology [address] [facility] Advanced Medicine 5th [place] [address] [place] [address] Ralph Cruz MD PhD [address] [facility] [address] [place], [place] [id number] Social History Tobacco Use Types Packs/Day Years [...] and Family Not on file 01/01/2021 Attends Muslim Services Not on file 01/01 Active Member [...] in a half-way (including now)? No 01/01/2021 [place] Depression Scale Answer Date Recorded [place] Depression Scale Total 11 01/11/2021 The thought [...] encounter Miscellaneous Notes * Telephone Encounter - Ralph Cruz MD PhD - 03/12/2021 11:21 AM BOTTOMING MACHINE OPERATOR Phone Encounter Note Received call back request for this patient. Discussed several items: (1) She has been having worsened shoulder pain, malaise, and sore throat that has worsened in the past few days since receiving her sotrovimab infusion on 03/07/2021. She wanted to know if there were any side effects reported in [facility] so far that were attributed to experimental sotrovimab. To my knowledge there has not been life threatening or reportable adverse outcomes to sotrovimab infusion in [facility] nor nationwide, but I did say that many nonspecific side effects such as headache, GI upset, diarrhea, or malaise could be seen after any experimental infusion treatment. She is concerned because she thinks the sotrovimab recommended for her made her feel worse overall.I counseled that it was more likely that progressive COVID infection was driving her symptoms, but said it would be impossible to determine whether COVID or the infusion treatment was driving the worsening of her arthralgias and sore throat. Also advised that it was impossible to retrospectively determine whether she would have recovered faster or slower without the infusion treatment. All available evidence suggests that patients do better with receiving treatment. For any one individual, it is possible they could have done much better or much worse without getting treatment, but it was impossible to determine because disease can manifest differently for every individual. Discussed return precautions for emergency care and symptoms to evaluate for any worsening PNA. (2) She asked about expected half life of sotrovimab. As a monoclonal antibody infusion without (zunilda knowledge) additional pegylation or glycosylation modification but with some Fc receptor mutations designed to extend half life, counseled that it would last for weeks to months in her body. (3) She asked whether azithromycin prescribed by her PCP office would have any efficacy for COVID infxn. Discussed that there was no role for antibiotic coverage generally in viral infections and that azithromycin would likely not help or alter her recovery course, but was also unlikely to hurt her. Discussed there are some antiinflammatory properties of Z-pack that make it helpful for patients with known lung disease or COPD, but that she did not fall into this category and would likely not obtain the same benefit. Ralph Cruz MD PhD OMING MACHINE OPERATOR OMING MACHINE OPERATOR documented in this encounter Plan of Treatment Not on file documented as of this encounter Visit Diagnoses Not on filedocumented in this encounter Care Teams It Consultant Relationship Specialty [place] [address] [address] [place] [address] PCP - General 07/04/19 [place] [address] [address] [place] [address] 11/16/18 Ernie Shaw MD [address] [facility] [address] [place] [address] Metal Cut Off Saw Operator Obstetrics and Gynecology 06/10/20 documented as of this encounter
--- OUTSIDE RECORDS SUMMARY | 2024-02-24 19:59 | XMS_ITS | Encounter Summary ---
Author Organization [facility] Address [address] [place] [address] Phone Care Team Providers Care Preventive Medicine Physician Name Role Phone Huseyin Dangelo MD Unavailable [phone] Brian Mon MD Primary Care Provider + Ernie Shaw MD Unavailable [phone] Encounter Details Date Type Department Care Team (Late st Contact Info) Description 03/08/2021 Documentation [facility] Rheumatology [address] [facility] Advanced Medicine 5th [place] [address] [place] [address] Дмитрий Garcia MD [address] [place] [address] Social History Tobacco Use Types [...] and Family Not on file 01/01/2021 Attends Congregation Services Not on file 01/01 Active Member [...] a senior care (including now)? No 01/01/2021 [place] Depression Scale Answer Date Recorded [place] Depression Scale Total 11 01/11/2021 The thought [...] as of this encounter Progress Notes * Дмитрий Garcia MD - 03/08/2021 1:30 AM CST Called patient back. [facility] and then started to experience malar rash, fatigue, some joint pain in her hands at night which makes her concern of her SLE is flaring up. Review of infusion order showed that solumedrol/benadryl was ordered for the infusion. Patient is on chronic steroid 7.5mg daily. Review of the patient's picture Informed that patient that COVID monoclonal antibody is newmedication that has the potential to cause flares but so far data is lacking. Given concurrent COVID infection currently, I suggested to temporarily increase prednisone to 10mg daily for 5 days and monitor symptoms. If COVID symptom worsens, patient will decrease prednisone back to 7.5mg daily CTOR TRIAL documented in this encounter Plan of Treatment Not on file documented as of this encounter Visit Diagnoses Not on filedocumented in this encounter Care Teams Preventive Medicine Physician Relationship Specialty [place] [address] [place] [address] PCP - General 07/04/19 [place] [address] [address] [place] [address] 11/16/18 Ernie Shaw MD [address] [place] [address] [address] [place] [address] Chief Steward/Stewardess Obstetrics and Gynecology 06/10/20 documented as of this encounter
--- OUTSIDE RECORDS SUMMARY | 2024-02-24 19:59 | XMS_ITS | Encounter Summary ---
Author Organization [facility] [employer] [facility] Address [address] [place] [address] Phone Care Team Providers Care Supervisor Fish Bait Processing Name Role Phone Huseyin Dangelo MD Unavailable [phone] Brian Mon MD Primary Care Provider + Ernie Shaw MD Unavailable [phone] Encounter Details Date Type Department Care Team (Latest Contact Info) Description 03/17/2021 1:30 PM CABLEWAY OPERATOR Telemedicine [facility] Rheumatology [facility] Advanced Medicine 5th [place] [address] [place] [address] Secondary adrenal insufficiency (CMS/HCC) (HCC) (Primary Dx); Lupus (CMS/HCC) (HCC) Social History Tobacco Use [...] and Family Not on file 01/01/2021 Attends [employer] Services Not on file 01/01 Active Member [...] in a longterm (including now)? No 01/01/2021 Tucker Depression Scale Answer Date Recorded Tucker Depression Scale Total 11 01/11/2021 The thought [...] Sign Reading Time Taken Comments Blood Pressure 121/83 03/17/2021 11:20 AM CABLEWAY OPERATOR Pulse - - Temperature 36.8 ??C (98.3 ??F) 03/17/2021 11:[address] Respiratory Rate - - Oxygen Saturation - - Inhaled Oxygen Concentration - - Weight 74.8 kg (165 lb) 03/17/2021 11:20 AM CABLEWAY OPERATOR Height 160 cm (5' 3 ) 03/17/2021 11:20 AM CABLEWAY OPERATOR Body Mass Index 29.23 03/17/2021 11:20 AM CABLEWAY OPERATOR documented in this encounter Progress Notes * Carolina Delarosa MD - 03/17/2021 1:30 PM CST PATIENT NAME: Carito Madison : 1990 03/17/2021 This was a telemedicine visit with Carito Madison alone which took place via Real-time video connection (InTouch, Zoom or similar). During the visit, I was located at home and the patient was located at home in the [facility]. The patient visit started at 1.30 pm and ended at- 1,50 pm. My totalencounter time on 03/17/2021 was 20 minutes which was spent in the activities documented in the note. This includes time spent prior to the visit and after the visit in direct care of the patient. This time does not include time spent in any separately reportable services. The patient: has been informed that the visit may not be secure and acknowledged the information. The option of participating in a telephone or video visit during the [facility] explained [facility] them. After being given [...] also has a positive double- stranded DNA, CONTINUITY CLERK antibody and a low C4 and C3 [...] mg a day Interim She has about 2 months at this point and reports that she is beginning to notice some pleuritic-type chest pain as well as joint pain and fatigue. She would like to resume Benlysta. She nolonger has insurance at this point. She also developed COVID-19 infection on February about 2 weeks ago and was treated with a monoclonal antibody Feb. She feels that this flare started after [...] Itching CURRENT MEDICATION: Current Outpatient Medications: ??? azithromycin (Zithromax Z-Maximilian) 250 mg tablet, Take 1 tablet (250 mg total) by mouth daily Take first 2 tablets together, then 1 every day until finished. Collaborating physician Jorge Arriaga MD, Disp: 6 tablet, Rfl: 0 ??? benzonatate (TESSALON) 100 mg capsule, , Disp: , Rfl: ??? cephalexin (KEFLEX) 500 mg capsule, Take 1 capsule (500 mg total) by mouth 4 (four) times a day, Disp: 28 capsule, Rfl: 0 ??? fluconazole (DIFLUCAN) 150 mg tablet, , Disp: , Rfl: ??? hydrocortisone (ANUSOL-HC) 2.5 % rectal cream, Insert 1 applicator rectally 1-2 times daily as needed when hemorrhoids are flared up., Disp: 30 g, Rfl: 5 ??? hydrOXYchloroQUINE (PLAQUENIL) 200 mg tablet, Take 2 tablets (400 mg total) by mouth daily, Disp: 60 tablet, Rfl: 5 ??? pantoprazole DR (PROTONIX) 40 mg EC [...] every 6 (six) hours (Patient not taking: Reported on 02/10/2021), Disp: 30 tablet, Rfl: 0 ? ? al & mag hydroxide with kneawuxrswd-lmrxerrnxlkoltc-rgbpawwyl (MAGIC MOUTHWASH) suspension 1-1-1, Swish and swallow 10 mL every 4 (four) hours as needed (oral ulcers) (Patient not taking: Reported on 02/10/2021), Disp: 300 mL, Rfl: 0 ??? cyclobenzaprine (FLEXERIL) 5 mg tablet, Take 1 tablet (5 mg total) by mouth 3 (three) times a day as needed for muscle spasms (Patient not taking: Reported on 02/10/2021), Disp: 30 tablet, Rfl: 0 ??? PNV with wwkthgf-phat-PP 27 mg iron- 1 mg tablet, Take 1 tablet by mouth daily (Patient not taking: Reported on 01/11/2021), Disp: 30 tablet, Rfl: 1 ??? simethicone (MYLICON) 80 mg chewable tablet, Take 1 tablet (80 mg total) by mouth 4 (four) times a day as needed for flatulence (Patient not taking: Reported on 02/10/2021), Disp: 30 tablet, Rfl:0 PHYSICAL EXAM: Vitals BP 121/83 Temp 36.8 ??C (98.3 ??F) Ht 160 cm (5' 3 ) Wt 74.8 kg (165 lb) LMP (LMP Unknown) BMI 29.23 kg/m?? Physical Exam Not performed LABORATORY DATA: Lab Results Component Value Date WBC 7.2 02/13/2021 HGB 12.4 02/13/2021 HCT 39.1 02/13/2021 MCV 90.9 02/13/2021 LABPLAT 274 02/13/2021 Lab Results Component Value Date AST 16 02/13/2021 ALT 20 02/13/2021 CREATININE 0.69 02/13/2021 Lab Results Component Value Date SEDRATE 14 02/05/2021 Lab Results Component Value Date CRP 10.7 (H) 02/05/2021 ASSESSMENT AND PLAN: SLE In conclusion this is a 29-year-old female with a diagnosis of lupus. At this point she is 2 months and seems to be experiencing flare symptoms. I would like for her to resume Benlysta. Since she does not have insurance at this point we may have to do patient assistance for her. I have advised that she consider subcutaneous Benlysta, self injectable once aweek in place of the infusions as this would be more accessible to her on patient assistance. She is going to get lupus serologies done tomorrow, we will also get a TB test at this point. We will mail her paperwork for Benlysta. At this point her flare symptoms are not severe and she prefers not to take prednisone which I agree with She will continue hydroxychloroquine 200 mg a day and prednisone at 7.5 mg daily which she takes for longstanding adrenal insufficiency DISPOSITION: The patient will return follow up in 2 months Carolina Delarosa MD EWAY OPERATOR documented in this encounter Plan of Treatment Not on file documented as of this encounter Visit Diagnoses Diagnosis Secondary adrenal insufficiency (HCC)- Primary Lupus Systemic lupus erythematosus documented in this encounter Care Teams Supervisor Fish Bait Processing Relationship Specialty [place] [address] [address] [address] PCP - General 07/04/19 [place] [address] [address] [address] 11/16/18 Ernie Shaw MD [address] [place] [address] [address] [place] [address] Track Repair Person Obstetrics and Gynecology 06/10/20 documented as of this encounter
--- OUTSIDE RECORDS SUMMARY | 2024-02-24 19:59 | XMS_ITS | Encounter Summary ---
Author Organization [facility] Healthcare Address [address] [place] [address] Care Team Providers Care Telephone Answering Service Operator Name Role Phone Huseyin Dangelo MD Unavailable [phone] Brian Mon MD Primary Care Provider + Ernie Shaw MD Unavailable [phone] Reason for Visit * Reason Comments COVID-19 EVALUATION Encounter Details Date Type Department Care Team (Late st Contact Info) Description 03/09/2021 9:03 AM ASSEMBLER CONVERTIBLE TOP - 03/09/2021 10:30 AM [facility] Emergency [facility] Emergency Department [address] [place] [address] COVID-19 virus infection (Primary Dx); Acute pharyngitis, unspecified etiology Discharge Disposition: Discharge to home or self [...] and Family Not on file 01/01/2021 Attends Judaism Services Not on file 01/01 Active Member [...] a senior care (including now)? No 01/01/2021 [place] Depression Scale Answer Date Recorded [place] Depression Scale Total 11 01/11/2021 The thought [...] Sign Reading Time Taken Comments Blood Pressure 130/88 03/09/2021 8:51 AM ASSEMBLER CONVERTIBLE TOP Pulse 88 03/09/2021 8:51 AM ASSEMBLER CONVERTIBLE TOP Temperature 36.6 ??C (97.8 ??F) 03/09/2021 8:51 AM CS T Respiratory Rate 18 03/09/2021 8:51 AM ASSEMBLER CONVERTIBLE TOP Oxygen Saturation 98% 03/09/2021 8:51 AM ASSEMBLER CONVERTIBLE TOP Inhaled Oxygen Concentration - - Weight 77.1 kg (169 lb 15.6 oz) 03/09/2021 8:51 AM ASSEMBLER CONVERTIBLE TOP Height 152.4 cm (5') 03/09/2021 8:51 AM ASSEMBLER CONVERTIBLE TOP Body Mass Index 33.2 03/09/2021 8:51 AM ASSEMBLER CONVERTIBLE TOP documented in this encounter Discharge Diagnoses Diagnosis COVID-19 - COVID-19 Acute pharyngitis, unspecified - ACUTE PHARYNGITIS, UNSPECIFIED Nasal congestion - NASAL CONGESTION Other diseases of nasal cavity and sinuses Otalgia, bilateral - OTALGIA, BILATERAL Other specified symptoms and signs involving the circulatory and respiratory systems - OTHER SPECIFIED SYMPTOMS AND SIGNS INVOLVING THE CIRCULATORY AND RESPIRATORY SYSTEMS Cough, unspecified - COUGH, UNSPECIFIED Unspecified asthma, uncomplicated - UNSPECIFIED ASTHMA, UNCOMPLICATED Chronic kidney disease, unspecified - CHRONIC KIDNEY DISEASE, UNSPECIFIED 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 * Coronavirus Disease 2019: Caring for Yourself and Others ([place]ese) * Pharyngitis (AfterCare(R) Instructions(ER/ED)) ([place]ese) documented in this encounter Medications at Time of Discharge valACYclovir (VALTREX) 500 mg tablet 2 dexAMETHasone (DECADRON) 4 mg tablet Take 1 tablet (4 mg total) by mouth 2 (two) times a day with meals for 5 days Collaborating physician Jorge Arriaga MD 10 tablet 2 03/14/19 22 acetaminophen 500 mg capsuleIndications :Pain Take 2 capsules (1,000 mg total) by mouth every 6 (six) hours 30 tablet 03/16/19 23 al & mag hydroxide with simethicone-diphen hydramine-lidocain e (MAGIC MOUTHWASH) suspension 1-1-1 Swish and swallow 10 mL every 4 (four) hours as needed (oral ulcers) 300 mL 03/16/19 23 azithromycin (Zithromax Z-Maximilian) 250 mg [...] as needed for muscle spasms 30 tablet 03/16/19 23 fluconazole (DIFLUCAN) 150 mg tablet 07/26/19 22 hydrocortisone (ANUSOL-HC) 2.5 % rectal cream Insert 1 applicator rectally 1-2 times daily as needed when hemorrhoids are flared up. 30 g 5 2 03/16/19 23 hydrOXYchloroQUINE (PLAQUENIL) 200 mg tablet Take 2 tablets (400 mg total) by mouth daily 60 tablet 5 1 07/23/[address] (PROTONIX) 40 mg EC tabletIndications: Stress Ulcer Prophylaxis Take 1 tablet (40 mg total) by mouth daily 30 tablet 11 03/16/19 23 PNV with [id number] 27 mg iron- 1 mg tabletIndications: Vitamin [...] for cough (And runny nose) Collaborating physician oJrge Arriaga MD 118 mL 2 03/16/19 23 sertraline (ZOLOFT) 25 mg tablet 1 08/16/19 22 simethicone (MYLICON) 80 mg chewable tabletIndications: Flatulence Take 1 tablet (80 mg total) by mouth 4 (four) times a day as needed for flatulence 30 tablet 1 03/16/19 23 documented as of this encounter Ordered Prescriptions Prescription Sig Dispense Quantity Refills Last Filled Start Date End Date promethazine-DM (PROMETHAZINE-DM) 1.25-3 mg/mL syrup Take 5 mL by mouth 4 (four) times a day as needed for cough (And runny nose) Collaborating physician Jorge Arriaga MD 118 mL 03/09/2021 03/16/19 23 dexAMETHasone (DECADRON) 4 mg tablet Take 1 tablet (4 mg total) by mouth 2 (two) times a day with meals for 5 days Collaborating physician Jorge Arriaga MD 10 tablet 03/09/2021 03/14/19 22 azithromycin (Zithromax Z-Maximilian) 250 mg tablet Take 1 tablet (250 mg total) by mouth daily Take first 2 tablets together, then 1 every day until finished. Collaborating physician Jorge Arriaga MD 6 tablet 03/09/2021 06/24/19 22 documented in this encounter Discharge Disposition Disposition Code Departure Means Destination Discharge to home or self care documented in this encounter ED Notes * Taiwo Rodriguez PA - 03/09/2021 9:46 AM CST HPI Chief Complaint Patient presents with ??? COVID-19 EVALUATION 30-year-old female with history of SLE presents with chief complaint of fever, chills, fatigue, sinus congestion, sore throat, bilateral ear pain, and cough. Patient states that she tested positive for COVID-19 on 03/05/2021. Received a monoclonal antibody infusion on 03/07/2021. Despite treatment patient states her symptoms have persisted. Feels short of breath at times. Denies hemoptysis. Denies GI or symptoms at present. Patient History: Patient Active Problem List Diagnosis [...] anemia 12/24/2019 ??? Joint pain 12/24/2019 ??? 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 Epilepsy undetermined as [...] Former Smoker Quit date: 12/28/2018 Years since quittin.1 ??? Smokeless tobacco: Never Used Vaping Use ??? Vaping Use: Never used Substance Use Topics ??? Alcohol use: Yes Comment: occasionally ??? Drug use: Not Currently Types: Marijuana Comment: 01/09 - denies Social History Social History Narrative ??? Not on file Review of Systems Review of Systems All other systems reviewed negative. All available allergies, past medical history, past surgical history, social history, and medications reviewed from the medical record, nursing notes, and with patient Physical Exam ED Triage Vitals [03/09/21 0851] Temp Pulse Resp BP SpO2 36.6 ??C (97.8 ??F) 88 18 130/88 98 % Temp src Heart Rate Source Patient Position BP Location FiO2 (%) Temporal -- -- -- -- Physical Exam Vitals and nursing note reviewed. Physical Exam Constitutional: Appears well-developed and well-nourished. HEENT: Head: Normocephalic and atraumatic. Right Ear: External ear normal. Left Ear: External ear normal. Positive rhinorrhea. Posterior pharynx erythematous. Eyes: Conjunctivae and EOM are normal. Pupils are equal, round, and reactive to light. Right eye exhibits no discharge. Left eye exhibits no discharge. Neck: Normal range of motion. Neck supple. Cardiovascular: Normal rate, regular rhythm, normal heart sounds. Pulmonary/Chest: Effort normal and breath sounds normal. Neurological: Alert and oriented. Skin: afebrile Psychiatric: Normal mood and affect. Nursing note and vitals reviewed. Voice recognition software [employer] Direct was used to dictate and transcribe this document. Core Drier variances may occur. Despite proofreading, typographical errors may occur. [facility] ED Course as of 03/09/21 1027 Time: 03/09 1024 Comment: Patient requesting to be discharged. Will follow up for results on her own. By: Taiwo Rodriguez PA Final diagnoses: COVID-19 virus infection Acute pharyngitis, unspecified etiology Taiwo Rodriguez PA 03/09/21 1027 Cosigned by Harry Santos MD at 03/09/2021 12:29 PM ASSEMBLER CONVERTIBLE TOP MBLER CONVERTIBLE TOP MBLER CONVERTIBLE TOP * Мария Woo RN - 03/09/2021 8:48 AM CST Patient who tested positive for Covid-19 03/05/21 and received Sotrovimab infusion 03/07/21 presents to the emergency room for evaluation of worsening viral symptoms. Reports SOB, congestion, body aches. Patient in no distress. MBLER CONVERTIBLE TOP documented in this encounter Plan of Treatment Not on file documented as of this encounter Procedures Procedure Name Priority Date/Time Associated Diagnosis Comments XR CHEST 1 VIEW ED 03/09/2021 10:18 AM ASSEMBLER CONVERTIBLE TOP STREPTOCOCCUS GROUP A PCR STAT 03/09/2021 10:06 AM ASSEMBLER CONVERTIBLE TOP documented in this encounter Results * XR Chest 1 Vw Portable (03/09/2021 10:18 AM ASSEMBLER CONVERTIBLE TOP) Anatomical Region Laterality Modality Body, Chest N/A Computed Radiogr aphy 03/09/2021 10:2 0 AM ASSEMBLER CONVERTIBLE TOP Narrative 03/09/2021 10:20 AM ASSEMBLER CONVERTIBLE TOP EXAM DESCRIPTION: ?? XR CHEST 1 VIEW REASON FOR STUDY: ?? Subjective cough and fever ?? Patient who tested positive for Covid-19 03/05/21 and received Sotrovimab infusion 03/07/21 presents to the emergency room for evaluation of worsening viral symptoms. Reports SOB, congestion, body aches. Patient in no distress. ?? TECHNIQUE: ?? Frontal ??radiographic view of the chest acquired. COMPARISON: ?? Chest radiograph 02/13/2021 FINDINGS: LUNGS/PLEURA: ?? No focal consolidation or pneumothorax. No pleural effusion. HEART/MEDIASTINUM: ?? Heart size is normal. Normal mediastinal and hilar contours. HARDWARE/LINES/TUBES: ?? None. BONES: ?? No acute findings. OTHER: ?? No other significant finding. IMPRESSION: ??No acute cardiopulmonary disease. THIS IS AN ELECTRONICALLY VERIFIED FINAL REPORT 03/09/2021 10:20 AM - Electronically signed by ??Jermaine Goldberg M.D. JR: D: ??03/09/2021 10:20 AM T: ??03/09/2021 10:20 AM Report ID: [id number] Reading Location: ??[id number] Procedure Note Jermaine Goldberg MD - 03/09/2021 EXAM DESCRIPTION: XR CHEST 1 VIEW REASON FOR STUDY: Subjective cough and fever Patient who tested positive for Covid-19 03/05/21 and received Sotrovimab infusion 03/07/21 presents to the emergency room for evaluation ofworsening viral symptoms. Reports SOB, congestion, body aches. Patient in nodistress. TECHNIQUE: Frontal radiographic view of the chest acquired. COMPARISON: Chest radiograph 02/13/2021 FINDINGS: LUNGS/PLEURA: No focal consolidation or pneumothorax. No pleuraleffusion. HEART/MEDIASTINUM: Heart size is normal. Normal mediastinal and hilar contours. HARDWARE/LINES/TUBES: None. BONES: No acute findings. OTHER: No other significant finding. IMPRESSION: No acute cardiopulmonary disease. THIS IS AN ELECTRONICALLY VERIFIED FINAL REPORT 03/09/2021 10:20 AM - Electronically signed by Jermaine Goldberg M.D. JR: Report ID: [id number] Reading Location: [id number] [facility] XR PROCEDURES Final Resu lt * Streptococcus Group A PCR (03/09/2021 10:06 AM ASSEMBLER CONVERTIBLE TOP) Pathologist [facility] [place] Strep A DNA Not Detected Not Detected ARPITA MARTIN (MERCEDES) Comment: This test is performed using the [employer] Xpert Group A Streptococcal Assay. This is a qualitative, real-time PCR assay that detects Group A Strep using throat specimens from patients suspected of having streptococcal pharyngitis. This assay does not detect other beta-hemolytic streptococci including Group C or Group G. ??Group C and G have been associated with pharyngitis and, occasionally, acute nephritis but do not cause rheumatic fever. If suspected, order Throat Culture, Routine. This assay has been cleared by the US Food and Drug Administration, and its performance characteristics have been verified by the performing laboratory. Throat 03/09/2021 10:0 6 AM ASSEMBLER CONVERTIBLE TOP 03/09/2021 10:12 AM ASSEMBLER CONVERTIBLE TOP [facility] MICROBIOLOGY - GENERAL O RDERABLES Final Result ARPITA MARTIN ([place]ED[place]) [address] [facility] Department [place] [address] documented in this encounter Visit Diagnoses Diagnosis COVID-19 virus infection- Primary COVID-19 virus infection Acute pharyngitis, unspecified etiology Acute pharyngitis documented in this encounter Administered Medications Inactive Administered Medications - up to 3 most recent administrations Medication Order MAR Action Action Date Dose Rate Site dexAMETHasone (DECADRON) injection solution 10 mg 10 mg, intramuscular, Once, On Sun03/09/21 at 1018, For 1 dose Given 03/09/2021 10:20 AM ASSEMBLER CONVERTIBLE TOP 10 mg Right Dorsogluteal/Buttoc k documented in this encounter Historical Medications * This list may reflect changes made after this encounter. Medication Sig Dispense Quantity Refills Last Filled Start D ate End Date benzonatate (TESSALON) 100 mg capsule 03/05/2021 06/23/2021 added in this encounter Active and Recently Administered Medications Times are shown in ASSEMBLER CONVERTIBLE TOP. Scheduled Medication Order 03/07/2021 03/08/2021 03/09/2021 dexAMETHasone (DECADRON) injection solution 10 mg (COMPLETED) 10 mg, intramuscular, Once, On Sun03/09/21 at 1018, For 1 dose 1020 (Given - Provid er: Chitra Paul RN) documented in this encounter Orders Medications Ordered That Omer ht Not Have Been Administered Count Last Ordered Date First Ordered Date dexAMETHasone (DECADRON) inj ection solution 20 mg 1 03/09/2021 documented in this encounter Care Teams Telephone Answering Service Operator Relationship Specialty [place] [address] [address] [facility] [place] [address] PCP - General 07/04/19 [place] [address] [address] [place] [address] 11/16/18 Ernie Shaw MD [address] [place] [address] [address] [place] [address] Bisque Grader Obstetrics and Gynecology 06/10/20 documented as of this encounter
--- OUTSIDE RECORDS SUMMARY | 2024-02-24 20:00 | XMS_ITS | Encounter Summary ---
Author Organization [facility] Address [address] [place] [address] Phone Care Team Providers Care Industrial Electrician Journeyman Name Role Phone Huseyin Dangelo MD Unavailable [phone] Brian Mon MD Primary Care Provider + Ernie Shaw MD Unavailable [phone] Reason for Visit * Reason Onset Date Comments Breast Pain 02/04/2021 Encounter Details Date Type Department Care Team (Late st Contact Info) Description 02/04/2021 Telephone [facility] Maternal- Medicine [address] [facility] [address] [facility] [address] [place] [address] Leti Ricks Breast Pain Social History Tobacco Use Types Packs/Day [...] a senior living (including now)? No 01/01/2021 [place] Depression Scale Answer Date Recorded [place] Depression Scale Total 11 01/11/2021 The thought [...] Miscellaneous Notes * Telephone Encounter - Leti Ricks - 02/04/2021 3:09 PM CST Pt called to report that she has a home health nurse coming to her home to see her daughter and sheadvised her that she has a clogged duct and needs to be assessed. Denies fever, chills, flu like symptoms. Dicussed with Dr Sorto and she asked me to get pt connected with the outpt habilitation specialist from [facility]. Spoke with Sahra and advised of the pt situation. She suggested that pt reach out to the nurses at [facility] and offered the support group that meets every Sunday from 2-3pm. I advised pt of this suggestion. Pt told me that she actually went to urgent care today for a possible UTI and saw an CPS TEAM LEAD that is a former OB nurse and habilitation specialist. Pt tells me she advised her to go home and pump every 2 hours, use heat packs and vibrating massager to the area. Pt tells me that she was told to call back on Sunday if those home treatments did not work and the CPS TEAM LEAD would order a breast ultrasound. Pt advised me that she felt these treatments were already helping but she would update us if needed and would consider the Sunday support group. APEUTIC DIETITIAN documented in this encounter Plan of Treatment Not on file documented as of this encounter Visit Diagnoses Not on filedocumented in this encounter Care Teams Industrial Electrician Journeyman Relationship Specialty [place] [address] [address] [facility] [place] [address] PCP - General 07/04/19 [place] [address] [address] [facility] [place] [address] 11/16/18 Ernie Shaw MD [address] [place] [address] [address] [place] [address] Clothing Presser Obstetrics and Gynecology 06/10/20 documented as of this encounter
--- OUTSIDE RECORDS SUMMARY | 2024-02-24 20:00 | XMS_ITS | Encounter Summary ---
Author Organization [facility] [facility] Address [address] [facility] [address] [place] [address] Phone Care Team Providers Care Investor Relations Associate Name Role Phone Huseyin Dangelo MD Unavailable [phone] Brian Mon MD Primary Care Provider + Ernie Shaw MD Unavailable [phone] Encounter Details Date Type Department Care Team (Late st Contact Info) Description 02/01/[address] [facility] [employer] Work [address] [place] [address] Angela Quezada LCSW Social History Tobacco Use Types Packs/Day Years [...] and Family Not on file 01/01/2021 Attends Mormonism Services Not on file 01/01 Active Member [...] a group home (including now)? No 01/01/2021 [place] Depression Scale Answer Date Recorded [place] Depression Scale Total 11 01/11/2021 The thought [...] encounter Miscellaneous Notes * Telephone Encounter - Angela Quezada LCSW - 02/01/2021 1:43 PM CST SW contacted pt via telephone and spoke with her. SW explained role of providing support, resources, and assistance and pt verbalized understanding and agreement. Patient shared that she spoke with her physician yesterday and declined referral to social work. She expressed frustration with providers and delivery of her daughter. Shared that her issue is not with her NICU bill but rather the quality of care she does not feel that she received. She shared thatshe feels that her baby ended up in the NICU due to her delivery. Therefore, she feels that provider needs to be responsible for her bill. She shared that she and her plan to speak to mergers and acquisitions attorney's regarding this. SW offered to refer patient to [employer] and [employer] to assist with applications for financial assistance. She declined at this time but was appreciative of call. SW encouraged mom to outreach if additional needs arise. As mom declined need for SW assistance, referral will be closed. GER PUBLISHING * Telephone Encounter - Angela Quezada LCSW - 02/01/2021 1:42 PM CST This referral has been received by the [facility] Social Work team. A social insurance analyst has assessed the level of need and this referral is considered to be moderate priority. Supervisor Wound will contact this patient within 3 to 10 business days to provide assistance and support. [facility] Chart Encounters and Notes for follow-up information regarding this referral moving forward. Thank you. [employer] PUBLISH[employer] documented in this encounter Plan of Treatment Not on file documented as of this encounter Visit Diagnoses Not on filedocumented in this encounter Additional Health Concerns Infection Onset Date Last Indicated Resolved Time COVID: Suspected 02/13/2021 02/13/2021 02/13/2021 4:25 AM MANAGER PUBLISHING documented as of this encounter Care Teams Investor Relations Associate Relationship Specialty [place] [address] [facility] [address] [address] PCP - General 07/04/19 [place] [address] [facility] [address] [place] [address] 11/16/18 Ernie Shaw MD [address] [facility] [address] [place] [address] Catering Service Manager Obstetrics and Gynecology 06/10/20 documented as of this encounter
--- OUTSIDE RECORDS SUMMARY | 2024-02-24 20:00 | XMS_ITS | Encounter Summary ---
Author Organization [facility] Healthcare Address [address] [place] [address] Care Team Providers Care Roll On Man Name Role Phone Huseyin Dangelo MD Unavailable [phone] Brian Mon MD Primary Care Provider + Ernie Shaw MD Unavailable [phone] Reason for Visit * Reason Comments Generalized Body Aches Encounter Details Date Type Department Care Team (Late st Contact Info) Description 02/13/2021 2:29 AM GROUNDSKEEPER PORTER - 02/13/2021 4:25 AM GROUNDSKEEPER PORTER Emergency [facility] Emergency Department [address] [place] [address] Anthony Honeycutt MD [address] [place] [address] Myalgia (Primary Dx) Discharge Disposition: Discharge to home [...] and Family Not on file 01/01/2021 Attends [employer] Not on file 01/01 Active Member [...] place to sleep or slept in a custodial (including now)? No 01/01/2021 Paradise Depression Scale Answer Date Recorded Paradise Depression Scale Total 11 01/11/2021 The thought [...] Sign Reading Time Taken Comments Blood Pressure 153/98 02/13/2021 2:30 AM GROUNDSKEEPER PORTER Pulse 61 02/13/2021 2:30 AM GROUNDSKEEPER PORTER Temperature 36.2 ??C (97.1 ??F) 02/13/2021 2:30 AM CS T Respiratory Rate 19 02/13/2021 2:30 AM GROUNDSKEEPER PORTER Oxygen Saturation 100% 02/13/2021 2:30 AM GROUNDSKEEPER PORTER Inhaled Oxygen Concentration - - Weight 77.1 kg (170 lb) 02/13/2021 2:24 AM GROUNDSKEEPER PORTER Height 160 cm (5' 2.99 ) 02/13/2021 2:24 AM GROUNDSKEEPER PORTER Body Mass Index 30.12 02/13/2021 2:24 AM GROUNDSKEEPER PORTER documented in this encounter Discharge Diagnoses Diagnosis Myalgia, unspecified site - MYALGIA, UNSPECIFIED SITE Contact with and (suspected) exposure to covid-19 - CONTACT WITH AND (SUSPECTED) EXPOSURE TO COVID-19 Unspecified asthma, uncomplicated - UNSPECIFIED ASTHMA, UNCOMPLICATED Chronic kidney disease, unspecified - CHRONIC KIDNEY DISEASE, UNSPECIFIED 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) - GLOMERULAR DISEASE IN SYSTEMIC LUPUS ERYTHEMATOSUS Rheumatoid arthritis, unspecified (HCC) - RHEUMATOID ARTHRITIS, UNSPECIFIED Acquired absence of other specified parts of digestive tract - ACQUIRED ABSENCE OF OTHER SPECIFIED PARTS OF DIGESTIVE TRACT Personal history of nicotine dependence - PERSONAL HISTORY OF NICOTINE DEPENDENCE Family history of diabetes mellitus - FAMILY HISTORY OF DIABETES MELLITUS Family history of ischemic heart disease and other diseases of the circulatory system - FAMILY HISTORY OF ISCHEMIC HEART DISEASE AND OTHER DISEASES OF THE CIRCULATORY SYSTEM documented in this encounter Discharge Instructions * Discharge Instructions* Anthony Honeycutt MD - 02/13/2021 4:16 AM GROUNDSKEEPER PORTER Thank you for the opportunity to care for you today! You were evaluated for and diagnosed with myalgias and several other symptoms that may be related to a viral syndrome or UTI. You had blood tests that were unremarkable. You should follow-up with your primary doctor in the next week. You should also follow-up with yourOB as scheduled. Return to the ED for fever, uncontrolled pain, or other concerns. You should take your previously prescribed antibiotic unless directed otherwise. We sincerely hope you feel better soon! NDSKEEPER PORTER documented in this encounter Medications at Time of Discharge acetaminophen 500 mg capsuleIndications: Pain Take 2 capsules (1,000 mg total) by mouth every 6 (six) hours 30 tablet 01/03/2021 3 al & mag hydroxide with simethicone-diphenh ydramine-lidocaine (MAGIC MOUTHWASH) suspension 1-1-1 Swish and swallow 10 mL every 4 (four) hours as needed (oral ulcers) 300 mL 12/09/2020 3 cephalexin (KEFLEX) 500 mg capsule Take 1 capsule (500 mg total) by mouth 4 (four) times a day 28 capsule 01/22/2021 2 cyclobenzaprine (FLEXERIL) 5 mg tablet Take 1 tablet (5 mg total) by mouth 3 (three) times a day as needed for muscle spasms 30 tablet 01/03/2021 3 fluconazole (DIFLUCAN) 150 mg tablet 02/04/2021 2 hydrOXYchloroQUINE (PLAQUENIL) 200 mg tablet Take 2 tablets (400 mg total) by mouth daily 60 tablet 5 09/30/[address] (PROTONIX) 40 mg EC tabletIndications:S tress Ulcer Prophylaxis Take 1 tablet (40 mg total) by mouth daily 30 tablet 11 01/03/2021 3 PNV with [id number] 27 mg iron- 1 mg tabletIndications:V itamin Deficiency Prevention Take 1 tablet by mouth daily 30 tablet 1 01/04/2021 3 predniSONE (DELTASONE) 2.5 mg tablet Take 3 tablets (7.5 mg) by mouth daily 30 tablet 2 01/04/2021 2 predniSONE (DELTASONE) 5 mg tabletIndications:A drenal insufficiency (HCC) TAKE 1 TABLET BY MOUTH EVERY DAY 30 tablet 5 01/31/2021 2 sertraline (ZOLOFT) 25 mg tablet 10/18/2020 2 simethicone (MYLICON) 80 mg chewable tabletIndications:F latulence Take 1 tablet (80 mg total) by mouth 4 (four) times a day as needed for flatulence 30 tablet 01/03/2021 3 documented as of this encounter Discharge Disposition Disposition Code Departure Means Destination Discharge to home or self care documented in this encounter ED Notes * Anthony Honeycutt MD - 02/13/2021 2:26 AM CST HPI Chief Complaint Patient presents with ??? Generalized Body Aches Patient is a 30-year-old woman with a history of lupus on prednisone who presents with chest/abdominal pain, myalgias, nausea, and diarrhea. Onset earlier today. Pain nonexertional/nonpleuritic. Associated with chills without fever. Seen at urgent care yesterday and diagnosed with UTI for which shehas been taking cephalexin. Denies significant dyspnea, leg swelling, or other complaints. Patient History: Patient Active Problem List Diagnosis Date Noted ??? Rectal bleeding 11/16/2020 ??? Polyhydramnios in third trimester, not applicable or unspecified fetus 10/26/2020 ??? delivery 12/30/2020 ??? Anemia during in third trimester 11/19/2020 ??? Marginal insertion of umbilical cord affecting management of mother in second trimester 08/26/2020 ??? Placenta previa 08/26/2020 ??? Attention deficit hyperactivity disorder (ADHD), combined type 07/15/2020 ??? Generalized anxiety disorder 06/15/2020 ??? Supervision of high-risk , unspecified trimester 06/10/2020 ??? Secondary adrenal insufficiency (CMS/HCC) ([facility]) 06/03/2020 ??? Right carpal tunnel syndrome 05/12/2020 ??? Bilateral chronic serous otitis media 03/31/2020 ??? Adrenal insufficiency (CMS/HCC) (HCC) 03/04/2020 ??? Microcytic anemia 12/24/2019 ??? Joint pain 12/24/2019 ??? Anti-MEAL GRINDER TENDER antibodies present 12/24/2019 ??? Epilepsy undetermined as [...] History: Procedure Laterality Date ??? APPENDECTOMY ??? COLONOSCOPY 07/29/2019 1st ??? DILATION AND [...] Positive for chest pain. Gastrointestinal: Positive for abdominal pain, diarrhea, nausea and vomiting. Negative for constipation. Genitourinary: Positive for dysuria, frequency and urgency. Musculoskeletal: Positive for myalgias. Skin: Negative for rash. Neurological: Negative for seizures, syncope and headaches. Psychiatric/Behavioral: Negative for confusion. Physical Exam ED Triage Vitals [02/13/21 0230] Temp Pulse Resp BP SpO2 36.2 ??C (97.1 ??F) 61 19 153/98 100 % Temp src Heart Rate Source Patient Position BP Location FiO2 (%) Temporal -- -- -- -- Physical Exam Vitals and nursing note reviewed. Constitutional: General: She is not in acute distress. Appearance: She is not ill-appearing or diaphoretic. HENT: Head: Normocephalic and atraumatic. Mouth/Throat: Mouth: Mucous membranes are moist. Eyes: General: No scleral icterus. Extraocular Movements: Extraocular movements intact. Cardiovascular: Rate and Rhythm: Normal rate and regular rhythm. Pulmonary: Effort: Pulmonary effort is normal. No respiratory distress. Abdominal: General: There is no distension. Palpations: Abdomen is soft. Tenderness: There is no abdominal tenderness. Musculoskeletal: General: No swelling. Normal range of motion. Cervical back: Normal range of motion. Skin: General: Skin is warm and dry. Findings: No rash. Neurological: General: No focal deficit present. Mental Status: She is alert and oriented to person, place, and time. Mental status is at baseline. Psychiatric: Mood and Affect: Mood normal. Behavior: Behavior normal. [facility] Medical Decision Making Differential Diagnosis or Management Options: 30-year-old woman with history of lupus and prednisone who presents with multiple symptoms. Considerations include viral syndrome such as COVID-19 or UTI. Doubt superimposed bacterial pneumonia. Doubt electrolyte abnormality. Doubt other emergent condition. Plan: ECG, labs, x-ray ED Course as of 02/13/21 0416 Time: 02/13 0321 Value: XR Chest 1 View Comment: Negative acute By: Anthony Honeycutt MD Time: 02/13 333 Comment: CBC unremarkable By: Anthony Honeycutt MD Time: 02/13 411 Comment: CMP unremarkable By: Anthony Honeycutt MD Time: 02/13 415 Comment: Patient requesting to leave prior to COVID result. Remains well appearing. Will discharge with PCP/Ob follow-up. Return precautions given. By: Anthony Honeycutt MD Final diagnoses: Myalgia Anthony Honeycutt MD 02/13/21415 NDSKEEPER PORTER * Carito Alegria RN - 02/13/2021 2:23 AM CST Pt complains of body aches, burning from the inside, Chest pain, and diarrhea. Pt stated she started feeling unwell yesterday. NDSKEEPER PORTER documented in this encounter Miscellaneous Notes * ED Procedure Note - Anthony Honeycutt MD - 02/13/2021 3:01 AM GROUNDSKEEPER PORTER Associated Order(s): ECG 12 lead Procedure ECG 12 lead Date/Time: 02/13/2021 3:01 AM Performed by: Anthony Honeycutt MD Authorized by: Anthony Honeycutt MD Rate: ECG rate: 58 ECG rate assessment: normal Rhythm: Rhythm: sinus rhythm ST segments: ST segments: Normal T waves: T waves: normal Recommended Follow-up: Recommended follow up: no further workup needed Anthony Honeycutt MD 02/13/21 0302 NDSKEEPER PORTER documented in this encounter Plan of Treatment Not on file documented as of this encounter Procedures Procedure Name Priority Date/Time Associated Diagnosis Comments EGFR STAT 02/13/2021 3:22 AM GROUNDSKEEPER PORTER DIFFERENTIAL AUTO STAT 02/13/2021 3:2 2 AM GROUNDSKEEPER PORTER CBC WITH AUTO DIFFERENTIAL STAT 02/13/2021 3:22 AM GROUNDSKEEPER PORTER COMPREHENSIVE METABOLIC PANEL STAT 02/13/2021 3:22 AM GROUNDSKEEPER PORTER XR CHEST 1 VIEW ED 02/13/2021 3:01 AM GROUNDSKEEPER PORTER INFLUENZA A/B, RSV, AND COVID-19 PCR Routine 02/13/2021 2:38 AM GROUNDSKEEPER PORTER ECG 12-LEAD STAT 02/13/2021 2:34 AM GROUNDSKEEPER PORTER documented in this encounter Results * eGFR (02/13/2021 3:22 AM GROUNDSKEEPER PORTER) [facility] eGFR 121 mL/min/1. 73 m2 [facility] ([place]) Comment: [...] interpretive data was last reviewed 2020. Blood 02/13/2021 3:22 AM GROUNDSKEEPER PORTER 02/13/2021 3:30 AM GROUNDSKEEPER PORTER us Anthony Honeycutt MD LAB BLOOD ORDERABLE S Final Result [facility] ([place]) 1 [facility] Department [place] [address] * Differential, auto (02/13/2021 3:22 AM GROUNDSKEEPER PORTER) Neutrophil abs 4.8 1.7 - 6.5 K/cumm [facility] ([place]) Imm gran abs 0.0 0.0 - 0.1 K/cumm [facility] ([place]) Lymphocyte abs 1.7 0.8 - 3.3 K/cumm [facility] ([place]) Monocyte abs 0.6 0.2 - 0.8 K/cumm [facility] ([place]) Eosinophil abs 0.1 0.0 - 0.5 K/cumm [facility] ([place]) Basophil abs 0.0 0.0 - 0.1 K/cumm [facility] ([place]) Neutrophil pct 66.2 % [facility] ([place]) Comment: Interpretive [...] was last revised on 2017. Lymphocyte pct 23.3 % [facility] ([place]) Comment: Interpretive Data Percent cell count reference ranges are not reported, since discordance with absolute values may lead to misinterpretation of CBC data. Current Interpretive Data was last revised on 2017. Monocyte pct 8.1 % [facility] ([place]) Comment: Interpretive Data Percent cell count reference ranges are not reported, since discordance with absolute values may lead to misinterpretation of CBC data. Current Interpretive Data was last revised on 2017. Eosinophil pct 1.7 % [facility] ([place]) Comment: Interpretive Data Percent cell count reference ranges are not reported, since discordance with absolute values may lead to misinterpretation of CBC data. Current Interpretive Data was last revised on 2017. Basophil pct 0.6 % [facility] ([place]) Comment: Interpretive Data Percent cell count reference ranges are not reported, since discordance with absolute values may lead to misinterpretation of CBC data. Current Interpretive Data was last revised on 2017. Blood 02/13/2021 3:22 AM GROUNDSKEEPER PORTER 02/13/2021 3:30 AM GROUNDSKEEPER PORTER us Anthony Honeycutt MD LAB BLOOD ORDERABLE S Final Result [facility] ([place]) 1 [facility] Department [place] [address] * Comprehensive metabolic panel (02/13/2021 3:22 AM GROUNDSKEEPER PORTER) Sodium 139 135 - 145 mmol/L [facility] ([place] Potassium, pl 3.6 3.3 - 4.9 mmol/L [facility] ([place]) Chloride 103 97 - 110 mmol/L [facility] ([place]) CO2 25 22 - 32 mmol/L [facility] ([place]) Anion gap 11 2 - 15 mmol/L [facility] ([place]) BUN 11 8 - 25 mg/dL [facility] Creatinine 0.69 0.60 - 1.10 mg/dL [facility] Glucose 99 70 - 199 mg/dL [facility] ([place] Comment: Interpretive Data Fasting glucose [...] interpretive data was last revised 2017. Calcium 9.8 8.5 - 10.3 mg/dL [facility] ([place]) Bilirubin, total 0.2 0.1 - 1.2 mg/dL [facility] ([place]) Protein, pl 7.2 6.5 - 8.5 g/dL [facility] ([place]) Albumin 4.4 3.5 - 5.0 g/dL [facility] ([place]) Alk phos 79 40 - 130 Units/L [facility] ([place]) ALT 20 7 - 45 Units/L [facility] ([place]) AST 16 10 - 45 Units/L [facility] ([place]) Blood 02/13/2021 3:22 AM GROUNDSKEEPER PORTER 02/13/2021 3:30 AM GROUNDSKEEPER PORTER us Anthony Honeycutt MD LAB BLOOD ORDERABLE S Final Result [facility] Department [place] [address] * (ABNORMAL) CBC with auto differential (02/13/2021 3:22 AM GROUNDSKEEPER PORTER) WBC 7.2 3.8 - 9.9 K/cumm [facility] ([place]) Hgb 12.4 11.9 - 15.5 g/dL [facility] ([place]) Hct 39.1 35.6 - 45.5 % [facility] ([place]) Plt 274 150 - 400 K/cumm [facility] ([place]) MPV 9.9 9.1 - 12.3 fL [facility] ([place]) RBC 4.30 3.90 - 5.20 M/cumm [facility] ([place]) MCV 90.9 81.3 - 96.4 fL [facility] ([place]) MCH 28.8 27.1 - 33.3 pg [facility] ([place]) MCHC 31.7(L) 32.3 - 35.7 g/dL [facility] ([place]) RDW CV 13.8 11.1 - 14.9 % [facility] ([place]) RDW SD 46.0 35.7 - 48.1 fL [facility] ([place]) NRBC abs 0.00 0.00 - 0.01 K/cumm [facility] ([place]) Blood 02/13/2021 3:22 AM GROUNDSKEEPER PORTER 02/13/2021 3:30 AM GROUNDSKEEPER PORTER Anthony Honeycutt MD LAB BLOOD ORDERABLE S Final Result [facility] ([place]) 1 [facility] [place] [address] * XR Chest 1 View (02/13/2021 3:01 AM GROUNDSKEEPER PORTER) Anatomical Region Laterality Modality Body, Chest N/A Computed Radiogr aphy 02/13/2021 3:16 AM GROUNDSKEEPER PORTER Narrative 02/13/2021 3:16 AM GROUNDSKEEPER PORTER EXAM DESCRIPTION: ?? XR CHEST 1 VIEW REASON FOR STUDY: ?? chest pain, c/f pna ?? Pt complains of body aches, burning from the inside, ??Chest pain, and diarrhea. ??Pt stated she started feeling unwell yesterday ?? TECHNIQUE: ?? Frontal ??radiographic view of the chest acquired. COMPARISON: ?? 04/05/2020 FINDINGS: LUNGS/PLEURA: ?? No focal consolidation or pneumothorax. No pleural effusion. HEART/MEDIASTINUM: ?? Heart size is normal. Normal mediastinal and hilar contours. HARDWARE/LINES/TUBES: ?? None. BONES: ?? No acute findings. OTHER: ?? No other significant finding. IMPRESSION: ??No acute cardiopulmonary disease. THIS IS AN ELECTRONICALLY VERIFIED FINAL REPORT 02/13/2021 3:16 AM - Electronically signed by ??Sachin Hollis.D. BB: SHAYY D: ??02/13/2021 3:16 AM T: ??02/13/2021 3:16 AM Report ID: [id number] Reading Location: ??[id number] Procedure Note Sachin Higginbotham MD PhD - 02/13/2021 EXAM DESCRIPTION: XR CHEST 1 VIEW REASON FOR STUDY: chest pain, c/f pna Pt complains of body aches, burning from the inside, Chest pain, and diarrhea. Pt stated she started feeling unwell yesterday TECHNIQUE: Frontal radiographic view of the chest acquired. COMPARISON: 04/05/2020 FINDINGS: LUNGS/PLEURA: No focal consolidation or pneumothorax. No pleuraleffusion. HEART/MEDIASTINUM: Heart size is normal. Normal mediastinal and hilar contours. HARDWARE/LINES/TUBES: None. BONES: No acute findings. OTHER: No other significant finding. IMPRESSION: No acute cardiopulmonary disease. THIS IS AN ELECTRONICALLY VERIFIED FINAL REPORT 02/13/2021 3:16 AM - Electronically signed by Sachin Higginbotham M.D. BB: SHAYY Report ID: [id number] Reading Location: [id number] Anthony Honeycutt MD IM XR PROCEDURES F inal Result * Influenza A/B, RSV, and COVID-19 PCR Nasopharyngeal (02/13/2021 2:38 AM GROUNDSKEEPER PORTER) COVID-19 RNA Negative Negative [facility] ([place]) Influenza A RNA Negative Negative [facility] ([place]) Influenza B RNA Negative Negative [facility] ([place]) RSV RNA Negative Negative [facility] ([place]) Comment: Interpretive data: This test is performed using the [employer] Xpert Xpress CoV-2/Flu/RSV plus assay. This is [...] out infection. Interpretive Data last revised 2021. First COVID-19 test? No [facility]) Employeed in healthcare? No [facility] ([place]) status? Unknown [facility] ([place]) Group care resident? No [facility] ([place]) Hospitalized? No [facility] ([place]) Is patient in ICU? No C ERNSALSA [facility] ([place]) Symptomatic as defined by CDC? Yes [facility] ([place]) Nasopharyngeal 02/13/2021 2: 38 AM GROUNDSKEEPER PORTER 02/13/2021 3:29 AM GROUNDSKEEPER PORTER Narrative [facility] ([place]) - 02/13/2021 4:24 AM GROUNDSKEEPER PORTER Date of Symptom Onset->02/12/21 Reason for testing?->Symptomatic (not immunocompromised) Known exposure to confirmed or suspected COVID-19 case?->No What is the reason for testing?->Likely to be discharged (batch) us Anthony Honeycutt MD LAB MICROBIOLOGY - GENERAL ORDERABLES Final Result [facility]) [facility] [place] [address] * ECG 12 lead (02/13/2021 2:34 AM GROUNDSKEEPER PORTER) 02/13/2021 2:34 AM GROUNDSKEEPER PORTER Narrative [facility] - 02/13/2021 9:56 PM GROUNDSKEEPER PORTER Vent Rate: 58 bpm RR Interval: 1022 msec MI Interval: 141 msec QRS Duration: 86 msec QT Interval: 417 msec QTC Interval: 414 msec P-R-T [place]: 140 - 180 - 166 degrees SINUS BRADYCARDIA ARM LEADS REVERSED ??[INVERTED P AND QRS IN I] BORDERLINE ECG Electronically Signed By: Mj Edgar DO [facility] us Anthony Honeycutt MD ECG ORDERABLES Fin al Result [facility] documented in this encounter Visit Diagnoses Diagnosis Myalgia- Primary Unspecified myalgia and myositis documented in this encounter Administered Medications Inactive Administered Medications - up to 3 most recent administrations Medication Order MAR Action Action Date Dose Rate Site acetaminophen (TYLENOL) tablet 1,000 mg 1,000 mg, oral, Once, On 02/13/21 at 0401, For 1 dose Given 02/13/2021 4:09 AM GROUNDSKEEPER PORTER 1,000 mg documented in this encounter Active and Recently Administered Medications Times are shown in GROUNDSKEEPER PORTER. Scheduled Medication Order 02/11/2021 02/12/2021 02/13/2021 acetaminophen (TYLENOL) tablet 1,000 mg (COMPLETED) 1,000 mg, oral, Once, On 02/13/21 at 0401, For 1 dose 0409 (Given - Provid er: Sara Matute RN) documented in this encounter Orders Medications Ordered That Omer ht Not Have Been Administered Count Last Ordered Date First Ordered Date acetaminophen (TYLENOL) tablet 1,000 mg 1 1 04/16/2020 Nursing Count Last Ordered Date First Orde red Date NURSING COMMUNICATION 1 02/13/2021 documented in this encounter Additional Health Concerns Infection Onset Date Last Indicated Resolved Time COVID: Suspected 02/13/2021 02/13/2021 02/13/2021 4:25 AM GROUNDSKEEPER PORTER documented as of this encounter Care Teams Roll On Man Relationship Specialty [place] [id number] [address] [place] [id number] PCP - General 07/04/19 [place] [address] [address] [place] [address] 11/16/18 Ernie Shaw MD [address] [place] [address] DR AUG[address] [place] [id number] Efficiency Expert Obstetrics and Gynecology 06/10/20 documented as of this encounter
--- OUTSIDE RECORDS SUMMARY | 2024-02-24 20:00 | XMS_ITS | Encounter Summary ---
Author Organization [facility] Healthcare Address [address] [place] [address] Care Team Providers Care Oracle Erp Developer Name Role Phone Huseyin Dangelo MD Unavailable [phone] Brian Mon MD Primary Care Provider + Ernie Shaw MD Unavailable [phone] Reason for Visit * Reason Onset Date Comments Med Refill 02/02/2021 Keflex refill Encounter Details Date Type Department Care Team (Late st Contact Info) Description 02/02/2021 Nurse Triage [address] [address] Remedios Middleton, RN Social History Tobacco Use Types Packs/Day Years [...] and Family Not on file 01/01/2021 Attends [employer] Services Not on file 01/01 Active Member [...] in a fpc (including now)? No 01/01/2021 [place] Depression Scale Answer Date Recorded [place] Depression Scale Total 11 01/11/2021 The thought [...] Miscellaneous Notes * Telephone Encounter - Remedios Middleton RN - 02/02/2021 11:46 PM DISTRICT LEADER Patient called stating she was prescribed Keflex for mastitis a few weeks ago and she stopped taking it after 2 days due to it making her sick when . She states she threw away therest of the medication and would like a refill because she feels like she has mastitis again. RN let patient know she will ask MD if they can send a refill to her pharmacy. RN let patient know she will call her back. Waiting for response from MD. Remedios Middleton RN RICT LEADER documented in this encounter Plan of Treatment Not on file documented as of this encounter Visit Diagnoses Not on filedocumented in this encounter Care Teams Oracle Erp Developer Relationship Specialty [place] [address] [address] [place] [address] PCP - General 07/04/19 [place] [address] [address] [place] [address] 11/16/18 Ernie Shaw MD [address] [place] [address] [address] [place] [address] Welt Rander Obstetrics and Gynecology 06/10/20 documented as of this encounter
--- OUTSIDE RECORDS SUMMARY | 2024-02-24 20:00 | XMS_ITS | Encounter Summary ---
Author Organization [facility] Healthcare Address [address] [place] [address] Care Team Providers Care Clinical Lab Technologist Name Role Phone Huseyin Dangelo MD Unavailable [phone] Brian Mon MD Primary Care Provider + Ernie Shaw MD Unavailable [phone] Reason for Visit * Reason Onset Date Comments Med Refill 02/03/2021 Encounter Details Date Type Department Care Team (Late st Contact Info) Description 02/03/2021 Nurse Triage [address] [address] Remedios Middleton, RN Social History Tobacco Use [...] and Family Not on file 01/01/2021 Attends Yazidi Services Not on file 01/01 Active Member [...] in a mcc (including now)? No 01/01/2021 [place] Depression Scale Answer Date Recorded [place] Depression Scale Total 11 01/11/2021 The thought [...] Telephone Encounter - Remedios Middleton RN - 02/03/2021 12:07 AM PHOTO JOURNALIST Patient called back to see if Rx will be refilled. RN let patient know I was about to call her back. Dr. Rosales states that if she has fever and chills, then she needs to come to [facility] for assessment and antibiotic. If patient is afebrile, patient can call primary OB office in the morning for medication refill or appointment to be assessed. Patient states she will not be coming to [facility] to be seen tonight. Remedios Middleton RN O JOURNALIST documented in this encounter Plan of Treatment Not on file documented as of this encounter Visit Diagnoses Not on filedocumented in this encounter Care Teams Clinical Lab Technologist Relationship Specialty [place] [address] [address] [place] [address] PCP - General 07/04/19 [place] [address] [address] [place] [address] 11/16/18 Ernie Shaw MD [address] [facility] [address] [place] [address] Director Quality Assurance Obstetrics and Gynecology 06/10/20 documented as of this encounter
--- OUTSIDE RECORDS SUMMARY | 2024-02-24 20:00 | XMS_ITS | Encounter Summary ---
Author Organization [facility] Healthcare Address [address] [place] [address] Care Team Providers Care Subway Guard Name Role Phone Huseyin Dangelo MD Unavailable [phone] Brian Mon MD Primary Care Provider + Ernie Shaw MD Unavailable [phone] Reason for Visit * Reason Onset Date Comments Follow-up 02/12/2021 Lower abd. pain Encounter Details Date Type Department Care Team (Late st Contact Info) Description 02/12/[address] [address] Fallon Callahan RN Postpartum Follow-up (Lower abd. pain) Social History Tobacco Use Types Packs/Day Years [...] place to sleep or slept in a penitentiary (including now)? No 01/01/2021 [place] Depression Scale Answer Date Recorded [place] Depression Scale Total 11 01/11/2021 The thought [...] encounter Miscellaneous Notes * Telephone Encounter - Fallon Callahan RN - 02/12/2021 10:10 AM CST 30 y/o post C/S over 6 weeks calls reporting lower abd. Pain around abd. Incision at 5/10. Hasnot taken anything for pain. States she is on antibiotics for UTI. Denies fever, nausea or vomiting, foul smelling vaginal discharge, heavy vaginal bleeding. Instructed she may take tylenol for discomfort and to go to ED for pain unrelieved by tylenol. Verbalizes understanding of instructions. Has follow up appt. 02/14/21. T PROTECTION ASSOCIATE documented in this encounter Plan of Treatment Not on file documented as of this encounter Visit Diagnoses Not on filedocumented in this encounter Care Teams Subway Guard Relationship Specialty [place] [address] [address] [place] [address] PCP - General 07/04/19 [place] [address] [address] [facility] [place] [address] 11/16/18 Ernie Shaw MD [address] [facility] [address] [place] [address] Diesel Locomotive Engineer Obstetrics and Gynecology 06/10/20 documented as of this encounter
--- OUTSIDE RECORDS SUMMARY | 2024-02-24 20:00 | XMS_ITS | Encounter Summary ---
Author Organization [facility] Healthcare Address [address] [place] [address] Care Team Providers Care Metallurgy Laboratory Technician Name Role Phone Huseyin Dangelo MD Unavailable [phone] Brian Mon MD Primary Care Provider + Ernie Shaw MD Unavailable [phone] Reason for Visit * Reason Onset Date Comments Follow-up 01/22/2021 Encounter Details Date Type Department Care Team (Late st Contact Info) Description 01/22/2021 Nurse Triage [address] [address] Saúl Lo, PRO Social History Tobacco Use Types Packs/Day Years [...] in a assisted (including now)? No 01/01/2021 [place] Depression Scale Answer Date Recorded [place] Depression Scale Total 11 01/11/2021 The thought [...] encounter Miscellaneous Notes * Telephone Encounter - Saúl Lo RN - 01/22/2021 1:34 PM CST Pt called stating that she delivered by C/S about 3-1/2 wks ago. Was told by her doctors that it was ok to have sexual intercourse. Says that she had sexual intercourse last night and about 5 hours later she started burning when she urintates. Also c/o her left breast being engorged. Says that she has been taking tylenol, ibuprofen, pumping well and icing her left breast with no relief. Denies any red areas, streaks or breast feeling warm/hot to touch. States the pain is only on the outside of her left breast closer to her armpit. Denies any fevers but does state last night she began to have chills and and really bad body aches. Says that she can not come in to the [facility] today and wondering if the on-call doctor can call her in a Rx for what she thinks is mastitis. Pt says that she will call the clinic on Sunday to talk with them about the burning after urinating. Pt states that she is allergic to PCn. Informed that either the RN or doctor will be giving her a call back. Pt evan menjivar understanding and states ok. Talked with Matthieu Valente and informed him of pt's complaints as stated above. States that he will give the pt a call back. Reason for Disposition ??? [1] SEVERE pain AND [2] not improved after 2 hours of pain medicine and Care Advice Protocols used: - BREAST PAIN AND [id number] CHECKER documented in this encounter Plan of Treatment Not on file documented as of this encounter Visit Diagnoses Not on filedocumented in this encounter Additional Health Concerns Infection Onset Date Last Indicated Resolved Time COVID: Suspected 01/14/2021 01/14/2021 01/28/2021 3:05 AM CORE CHECKER documented as of this encounter Care Teams Metallurgy Laboratory Technician Relationship Specialty [place] [id number] [address] PCP - General 07/04/19 [place] [address] [facility] [address] [place] [address] 11/16/18 Ernie Shaw MD [address] [facility] [address] [place] [address] Mixing Plant Operator Obstetrics and Gynecology 06/10/20 documented as of this encounter
--- OUTSIDE RECORDS SUMMARY | 2024-02-24 20:00 | XMS_ITS | Encounter Summary ---
Author Organization [facility] Healthcare Address [address] [place] [address] Care Team Providers Care Razor Grinder Name Role Phone Huseyin Dangelo MD Unavailable Brian Mon MD Primary Care Provider + Ernie Shaw MD Unavailable [phone] Reason for Referral * Diagnostic Imaging (Routine) - Closed Specialty Diagnoses / Procedures Referred By Contac t Referred To Contact Diagnoses Breast mass Procedures US Guided Breast Biopsy Right Kindra Navarro MD Phone: tel: fax: [address] [address] Referral ID Status Reason Start Date Expiration Date Visits Re quested Visits Authorized [id number] Closed 02/10/2021 03/12/2022 1 1 TING ENGINEER HELPER Reason for Visit * Diagnostic Imaging (Routine) - Closed Specialty Diagnoses / Procedures Referred By Contac t Referred To Contact Diagnoses Breast mass Procedures US Guided Breast Biopsy Right Kindra Navarro MD Phone: tel: fax: [address] [address] Referral ID Status Reason Start Date Expiration Date Visits Re quested Visits Authorized [id number] Closed 02/10/2021 03/12/2022 1 1 Encounter Details Date Type Department Care Team (Late st Contact Info) Description 02/23/2021 10:51 AM TREATING ENGINEER HELPER - 02/23/2021 11:59 PM TREATING ENGINEER HELPER Hospital Encounter [facility] [address] [place] [address] Kindra Navarro MD [address] [place] [address] [address] [place] [address] 1, Amh Rad Rn Rad, Amh Fluoro Breast mass Discharge Disposition: Discharge to home or self [...] in a snf (including now)? No 01/01/2021 [place] Depression Scale Answer Date Recorded [place] Depression Scale Total 11 01/11/2021 The thought [...] Sign Reading Time Taken Comments Blood Pressure 116/76 02/23/2021 11:15 AM TREATING ENGINEER HELPER Pulse 65 02/23/2021 11:15 AM TREATING ENGINEER HELPER Temperature 36.6 ??C (97.9 ??F) 02/23/2021 11:[address] Respiratory Rate 16 02/23/2021 11:15 AM TREATING ENGINEER HELPER Oxygen Saturation - - Inhaled Oxygen Concentration - - Weight 74.8 kg (165 lb) 02/23/2021 11:15 AM TREATING ENGINEER HELPER Height 160 cm (5' 3 ) 02/23/2021 11:15 AM TREATING ENGINEER HELPER Body Mass Index 29.23 02/23/2021 11:15 AM TREATING ENGINEER HELPER documented in this encounter Medications at Time [...] 30 tablet 11 01/03/2021 3 PNV with [id number] 27 mg iron- 1 mg tabletIndications:V itamin [...] or self care documented in this encounter Nursing Notes * Dimple Burgess RN - 02/23/2021 11:38 AM CST The area in right breast is smaller. Pt still wants the procedure. TING ENGINEER HELPER * Yessenia Kerr RN - 02/23/2021 11:30 AM CST Patient states no to all COVID-19 questions. TING ENGINEER HELPER documented in this encounter Plan of Treatment Not on file documented as of this encounter Procedures Procedure Name Priority Date/Time Associated Diagnosis Comments SURGICAL PATHOLOGY Routine 02/23/2021 12:07 PM TREATING ENGINEER HELPER Breast mass US GUIDED BREAST BIOPSY RIGHT Schedule Routine, Read Routine (OP Routine) 02/23/2021 12:01 PM TREATING ENGINEER HELPER Breast mass documented in this encounter Results * Surgical pathology (02/23/2021 12:07 PM TREATING ENGINEER HELPER) Tissue (Breast biopsy, needle core) 02/23/2021 11:49 AM TREATING ENGINEER HELPER Narrative [facility]OLOGY [facility] - 02/24/2021 3:05 PM TREATING ENGINEER HELPER EPIC results best viewed via link to PDF [facility] Department of Pathology [address] [place] [address] Note to Patients: This report may contain a detailed description of human tissue sent by a health care provider to the laboratory for pathologic evaluation. The content of this report is essential for diagnosis and may provide important critical findings. This information may be unfamiliar to patients to review without a medical professional present. It is advised that the patient review this report in the presence of a health care provider who can answer questions and explain the details. Final Report Patient Name: ??SHAZIA MADISONNEY Ganesh Address: ??[address] [place] [address], ??[place], [place] [address] Gender: ??F : ??1990 (Age: 30) Service: ??Radiology Location: ??[facility] Hospital #: ??[id number] Patient Type: ??[facility] EP ANCILLARY Accession # ?[id number] Taken: ??02/23/2021 Received: ??02/23/2021 Accessioned: ??02/23/2021 Reported: ??02/24/2021 Physician(s):Miguel A Mccarthy M.D. Diagnosis: A: Right breast mass at 8 o'clock 6 cm from nipple, core biopsy: ? -Benign fibrofatty breast tissue demonstrating changes consistent with lactating adenoma ? -Malignant features not seen Caitlin Sosa M.D. Report Electronically Reviewed and Signed Out By ??Caitlin Sosa M.D. ??02/24/2021 15:05:33 Specimen(s) Received: A: 3 cores biopsy right breast mass 8 o'clock area 6 cmfn Microscopic Description: Sections demonstrate benign fibrofatty breast tissue with a focal area of mild adenosis with prominent lactational changes and surrounding fibrous stroma. Malignant features are not seen. ?? The patient's clinical history is reviewed, and note is made of with delivery in December as well as the patient's current breast-feeding status. ??Patient presents with a one-week history of a small breast mass at 8 o'clock. ??These findings seen here are compatible with minimally proliferative fibrocystic changes with prominent lactational changes ; differential diagnosis includes a lactating adenoma or similar findings. ??Malignant features are not seen. ??Correlation with clinical radiographic findings is recommended. ?? Clinical History: Breast mass. ??3 cores biopsy right breast mass 8 o'clock area 6 cmfn. ?? Gross Description: The specimen is submitted in a single container labeled Carito [place] and right breast mass 8 o'clock 6 cm FN . ??It is three cores of fibrofatty tissue measuring 0.9-1.5 cm. ??All in one cassette. Formalin fixation times are in compliance with ASCO/CAP guidelines. ??Poncho Jones M.D./Florentino Mcclure, P.A. REPORT IMAGES AND SCANNED DOCUMENTS, IF INCLUDED, ONLY VIEWABLE IN PDF VERSION OF REPORT The performance characteristics of some immunohistochemical stains, fluorescence in-situ hybridization tests and immunophenotyping by flow cytometry cited in this report (if any) were determined by the Surgical Pathology Department at [facility] as part of an ongoing director supplier quality program and in compliance with federally mandated regulations drawn from the Clinical Laboratory Improvement Act of 1988 (CLIA '88). ??Some of these tests rely on the use of analyte specific reagents and are subject to specific labeling requirements by the US Food and Drug Administration. ??Such diagnostic tests may only be performed in a facility that is certified by the Department of Health and Human Services as a high complexity laboratory under CLIA '88. The FDA has determined that such clearance or approval is not necessary. ??This test is used for clinical purposes. ??It should not be regarded as investigational or for research. ??Nevertheless, federal rules concerning the medical use of analyte specific reagents require that the following disclaimer be attached to the report: This test was developed and its performance characteristics determined by the Surgical Pathology Department [facility]. ??It has not been cleared or approved by the U. S. Food and Drug Administration. Kindra Navarro MD LAB PATHOLOGY ORDER ANAHI Final Result PATHOLOGY [facility] [address] [place] [id number] * US Guided Breast Biopsy Right (02/23/2021 12:01 PM TREATING ENGINEER HELPER) Anatomical Region Laterality Modality Breast Right Ultrasound 02/23/2021 12:2 3 PM TREATING ENGINEER HELPER Addenda Addendum by Supriya Gomez MD on 02/24/2021 3:27 PM TREATING ENGINEER HELPER Pathology results are available. 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 ??Pathology findings are BENIGN and CONCORDANT. ??No specific follow-up guidelines are recommended. ??Screening mammogram is recommended at age 40. These findings were discussed with the patient by Dr. Gomez 02/24/2021 at 3:25 PM. Electronically signed by: Supriya Gomez MD Impressions 02/23/2021 12:23 PM TREATING ENGINEER HELPER Successful ultrasound-guided biopsy of the mass in the right breast. Pathology is pending. An addendum to this report will be issued when the pathology results are available. Electronically signed by: Supriya Gomez MD Narrative 02/23/2021 12:23 PM TREATING ENGINEER HELPER EXAMINATION: US GUIDED BREAST BIOPSY RIGHT ORDERING HEALTHCARE PROVIDER: KINDRA NAVARRO HISTORY: Ultrasound guided biopsy of right breast mass COMPARISON: ??02/05/2021 TECHNIQUE/FINDINGS: The risks, benefits, and alternatives to the procedure were discussed with the patient, and the patient provided informed written consent for the procedure. A time out procedure was performed, during which the patient name, date of , procedure, and site of procedure were confirmed verbally with the patient and the healthcare team. Pre-procedure ultrasound images demonstrate the mass at 8 o'clock in the right breast described on prior diagnostic ultrasound. ??Of note, this mass has decreased in size in the interim and currently measures 2 cm. ??Local anesthesia was obtained with 1% lidocaine. Using aseptic technique and ultrasound guidance, a 12 gauge core biopsy needle used to obtain 3 core biopsies of the mass at 8 o'clock in the right breast. Manual compression was applied at the site of the biopsy. The patient tolerated the procedure well. There were no immediate post-procedure complications. The patient was discharged from the department in stable condition. us Kindra Navarro MD IMG MAMMO PROCEDURE S Edited Result - Final documented in this encounter Visit Diagnoses Diagnosis Breast mass Lump or mass in breast documented in this encounter Care Teams Razor Grinder Relationship Specialty [place] [address] [address] [facility] [place] [address] PCP - General 07/04/19 [place] [address] [address] [facility] [place] [address] 11/16/18 Ernie Shaw MD [address] [place] [address] [address] [facility] [place] [address] Simulation Analyst Obstetrics and Gynecology 06/10/20 documented as of this encounter
--- OUTSIDE RECORDS SUMMARY | 2024-02-24 20:00 | XMS_ITS | Encounter Summary ---
Author Organization [facility] avocarrot of [facility] Address [address] [place] [address] Phone Care Team Providers Care Museum Attendant Name Role Phone Huseyin Dangelo MD Unavailable [phone] Brian Mon MD Primary Care Provider + Ernie Shaw MD Unavailable [phone] Reason for Visit * Reason Onset Date Comments bladder pain 02/10/2021 Encounter Details Date Type Department Care Team (Late st Contact Info) Description 02/10/2021 Telephone [facility] Maternal- Medicine [address] [facility] Outpatient Health 7th Floor [address] [place] [address] Leti Ricks bladder pain Social History Tobacco Use Types Packs/Day Years [...] and Family Not on file 01/01/2021 Attends Spiritism Services Not on file 01/01 Active Member [...] in a residential (including now)? No 01/01/2021 [place] Depression Scale Answer Date Recorded [place] Depression Scale Total 11 01/11/2021 The thought [...] * Telephone Encounter - Leti Ricks - 02/10/2021 11:04 AM CST Pt called to request that she have an inperson appointment to evaluate her severe bladder pain thatis radiating around to her flank. Pt tells me that she is currently taking Cephalexin that was prescribed by urgent care last week for UTI. She tells me that the symptoms are getting worse and now radiating to her back. Advised pt that we could change her appointment for next week to in person but I could not advise her to wait until Sunday to be seen for this worsening pain. Advised pt that I recommend she return to the urgent care that is treating her for the UTI and explain what is happening. Advised pt that a UTI could become more serious or develop a kidney infection so she needs more urgent evaluation. Pt appt with M was moved to Wednesday 02/14 in person as pt is requesting a vaginal exam following her recent delivery. EGE BASKETBALL COACH documented in this encounter Plan of Treatment Not on file documented as of this encounter Visit Diagnoses Not on filedocumented in this encounter Care Teams Museum Attendant Relationship Specialty [place] [address] [address] [place] [address] PCP - General 07/04/19 [place] [address] [address] [place] [address] 11/16/18 Ernie Shaw MD [address] [place] [address] [address] [place] [address] Turner And Former Automatic Obstetrics and Gynecology 06/10/20 documented as of this encounter
--- OUTSIDE RECORDS SUMMARY | 2024-02-24 20:00 | XMS_ITS | Encounter Summary ---
Author Organization [facility] Address [address] [facility] [address] [place] [address] Care Team Providers Care Brownfield Program Coordinator Name Role Phone Huseyin Dangelo MD Unavailable [phone] Brian Mon MD Primary Care Provider + Ernie Shaw MD Unavailable [phone] Encounter Details Date Type Department Care Team (Late st Contact Info) Description 03/04/2021 Telephone [facility] Gastroenterology at [address] [place] [address] Kade Mauro NP [address] [place] [address] [address] [place] [address] Social History Tobacco Use Types Packs/Day Years [...] a care home (including now)? No 01/01/2021 [place] Depression Scale Answer Date Recorded [place] Depression Scale Total 11 01/11/2021 The thought [...] Refills Last Filled Start Date End Date hydrocortisone (ANUSOL-HC) 2.5 % rectal cream Insert 1 applicator rectally 1-2 times daily as needed when hemorrhoids are flared up. 30 g 5 03/04/2021 3 documented in this encounter Miscellaneous Notes * Telephone Encounter - Adry Estrella MA - 03/04/2021 9:31 AM CST Mychart msg has been sent to the patient T COLOR OPERATOR * Telephone Encounter - Kade Treadwell NP - 03/04/2021 8:57 AM PRINT COLOR OPERATOR I reviewed her my chart message and photo. It looks like she is post so these hemorrhoids are not uncommon post . I sent anusol-HC with cream and applicators. Try to insert 1 applicatorful of cream twice daily and also apply externally. She has seen Dr. Cooney for other issues last month and he can do external hemorrhoid interventions as well so I placed new referral [facility] for [facility] external hemorrhoid issue if it persists. GI does not manage external hemorrhoids. She can also buy OTC lidocaine and apply externally to help with pain. T COLOR OPERATOR documented in this encounter Plan of Treatment Not on file documented as of this encounter Visit Diagnoses Diagnosis External thrombosed hemorrhoids- Primary documented in this encounter Care Teams Brownfield Program Coordinator Relationship Specialty [place] [address] [address] [place] [address] PCP - General 07/04/19 [place] [address] [address] [place] [address] 11/16/18 Ernie Shaw MD [address] [facility] [address] [place] [address] Distance Learning Administrator Obstetrics and Gynecology 06/10/20 documented as of this encounter
--- OUTSIDE RECORDS SUMMARY | 2024-02-24 20:00 | XMS_ITS | Encounter Summary ---
Author Organization [facility] Healthcare Address [address] [place] [address] Care Team Providers Care Siding Applicator Name Role Phone Huseyin Dangelo MD Unavailable [phone] Brian Mon MD Primary Care Provider + Ernie Shaw MD Unavailable [phone] Encounter Details Date Type Department Care Team (Late st Contact Info) Description 03/01/2021 Telephone [facility] [address] [place] [address] Yessenia Kerr RN Social History Tobacco Use Types Packs/Day [...] in a fpc (including now)? No 01/01/2021 [place] Depression Scale Answer Date Recorded [place] Depression Scale Total 11 01/11/2021 The thought [...] encounter Miscellaneous Notes * Telephone Encounter - Yessenia Kerr RN - 03/01/2021 8:03 AM DEDICATED OWNER OPERATOR Called and left message for BRI Castellanos at Dr. Cooney that patient Right Breast Biopsy pathology results are in Epic. Please review and call patient. CATED OWNER OPERATOR documented in this encounter Plan of Treatment Not on file documented as of this encounter Visit Diagnoses Not on filedocumented in this encounter Care Teams Siding Applicator Relationship Specialty [place] [address] [address] [facility] [place] [address] PCP - General 07/04/19 [place] [address] [address] [facility] [place] [address] 11/16/18 Ernie Shaw MD [address] [place] [address] [address] AUG[address]INE [facility] [place] [address] Debt And Budget Counselor Obstetrics and Gynecology 06/10/20 documented as of this encounter
--- OUTSIDE RECORDS SUMMARY | 2024-02-24 20:00 | XMS_ITS | Encounter Summary ---
Author Organization [facility] Healthcare Address [address] [place] [address] Care Team Providers Care Die Holder Name Role Phone Huseyin Dangelo MD Unavailable [phone] Brian Mon MD Primary Care Provider + Ernie Shaw MD Unavailable [phone] Encounter Details Date Type Department Care Team (Late st Contact Info) Description 02/11/2021 Telephone [facility] [address] [place] [address] Yessenia Kerr RN Social History Tobacco Use [...] place to sleep or slept in a retirement (including now)? No 01/01/2021 [place] Depression Scale Answer Date Recorded [place] Depression Scale Total 11 01/11/2021 The thought [...] COVID: Suspected 02/13/2021 02/13/2021 02/13/2021 4:25 AM BUSINESS COMMUNICATIONS INSTRUCTOR COVID: Suspected 06/23/2021 06/23/2021 06/23/2021 8:47 AM CDT COVID: Suspected 07/16/2021 07/16/2021 07/16/2021 8:54 AM CDT COVID: Suspected 07/25/2021 07/25/2021 07/25/2021 7:46 AM CDT COVID: Suspected 09/30/2021 09/30/2021 09/30/2021 11:06 PM CDT COVID: Suspected 03/23/2022 03/23/2022 03/23/2022 1:12 PM BUSINESS COMMUNICATIONS INSTRUCTOR COVID: Suspected 04/21/2022 04/21/2022 04/21/2022 1:56 PM BUSINESS COMMUNICATIONS INSTRUCTOR COVID: Suspected 04/23/2022 04/23/2022 04/23/2022 7:37 AM BUSINESS COMMUNICATIONS INSTRUCTOR COVID: Suspected 05/23/2022 05/23/2022 05/23/2022 6:45 AM CDT documented as of this encounter Care Teams Die Holder Relationship Specialty [place] [address] [address] [facility] [place] [address] PCP - General 07/04/19 [place] [address] [address] [facility] [place] [address] 11/16/18 Ernie Shaw MD [address] [place] [address] [address] [facility] [place] [address] General Service Technician Obstetrics and Gynecology 06/10/20 documented as of this encounter
--- OUTSIDE RECORDS SUMMARY | 2024-02-24 20:00 | XMS_ITS | Encounter Summary ---
Author Organization [facility] Address [address] [place] [address] Care Team Providers Care Senior Java Programmer Name Role Phone Huseyin Dangelo MD Unavailable [phone] Brian Mon MD Primary Care Provider + Ernie Shaw MD Unavailable [phone] Reason for Referral * Diagnostic Imaging (Routine) - Closed Specialty Diagnoses / Procedures Referred By Contac t Referred To Contact Diagnoses Breast mass Procedures US Guided Breast Biopsy Right Cirilo Navarro MD Phone: tel: fax: [facility] [address] [place] [address] Referral ID Status Reason Start Date Expiration Date Visits Re quested Visits Authorized [id number] Closed 02/10/2021 03/12/2022 1 1 CAL PRACTICE MANAGER Encounter Details Date Type Department Care Team (Late st Contact Info) Description 02/10/2021 Orders Only [facility] [address] [facility] [address] [address] [place] [address] Cirilo Navarro MD [address] [place] [address] [address] [place] [address] Breast mass (Primary Dx) Social History Tobacco Use Types [...] in a assisted (including now)? No 01/01/2021 [place] Depression Scale Answer Date Recorded [place] Depression Scale Total 11 01/11/2021 The thought [...] as of this encounter Results * US Guided Breast Biopsy Right (02/23/2021 12:01 PM MEDICAL PRACTICE MANAGER) Anatomical Region Laterality Modality Breast Right Ultrasound 02/23/2021 12:2 3 PM MEDICAL PRACTICE MANAGER Addenda Addendum by Supriya Gomez MD on 02/24/2021 3:27 PM MEDICAL PRACTICE MANAGER Pathology results are available. 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 ??Pathology findings are BENIGN and CONCORDANT. ??No specific follow-up guidelines are recommended. ??Screening mammogram is recommended at age 40. These findings were discussed with the patient by Dr. Gomez 02/24/2021 at 3:25 PM. Electronically signed by: Supriya Gomez MD Impressions 02/23/2021 12:23 PM MEDICAL PRACTICE MANAGER Successful ultrasound-guided biopsy of the mass in the right breast. Pathology is pending. An addendum to this report will be issued when the pathology results are available. Electronically signed by: Supriya Gomez MD Narrative 02/23/2021 12:23 PM MEDICAL PRACTICE MANAGER EXAMINATION: US GUIDED BREAST BIOPSY RIGHT ORDERING HEALTHCARE PROVIDER: CIRILO NAVARRO HISTORY: Ultrasound guided biopsy of right [...] from the department in stable condition. us Cirilo Navarro MD IMG MAMMO PROCEDURE S Edited Result - Final documented in this encounter Visit Diagnoses Diagnosis Breast mass- Primary Lump or mass in breast Breast mass Lump or mass in breast documented in this encounter Care Teams Senior Java Programmer Relationship Specialty [place] [address] [address] [place] [address] PCP - General 07/04/19 [place] [address] [address] [place] [address] 11/16/18 Ernie Shaw MD [address] [facility] [address] [place] [address] Soil Sampler Obstetrics and Gynecology 06/10/20 documented as of this encounter
--- OUTSIDE RECORDS SUMMARY | 2024-02-24 20:00 | XMS_ITS | Encounter Summary ---
Author Organization [facility] Address [address] [place] [address] Phone Care Team Providers Care Unemployment Insurance Hearing Officer Name Role Phone Huseyin Dangelo MD Unavailable [phone] Brian Mon MD Primary Care Provider + Ernie Shaw MD Unavailable [phone] Encounter Details Date Type Department Care Team (Late st Contact Info) Description 01/31/2021 Telephone [facility] Maternal- Medicine [facility] [address] [facility] [address] [place] [address] Kristin Sorto MD [address] [facility] [address] [place] [address] Social History Tobacco Use Types Packs/Day Years [...] and Family Not on file 01/01/2021 Attends [employer] Not on file 01/01 Active Member [...] a group home (including now)? No 01/01/2021 [place] Depression Scale Answer Date Recorded [place] Depression Scale Total 11 01/11/2021 The thought [...] encounter Miscellaneous Notes * Telephone Encounter - Kristin Sorto MD - 01/31/2021 1:10 PM RESTAURANT MANAGER Called pt and answered her questions regarding delivery. Pt aware of follow up visit on 02/14. AURANT MANAGER documented in this encounter Plan of Treatment Not on file documented as of this encounter Visit Diagnoses Not on filedocumented in this encounter Care Teams Unemployment Insurance Hearing Officer Relationship Specialty [place] [address] [address] [place] [address] PCP - General 07/04/19 [place] [address] [address] [place] [address] 11/16/18 Ernie Shaw MD [address] [facility] [address] [address] [place] [address] Milk Hauler Obstetrics and Gynecology 06/10/20 documented as of this encounter
--- OUTSIDE RECORDS SUMMARY | 2024-02-24 20:00 | XMS_ITS | Encounter Summary ---
Author Organization [facility] Healthcare Address [address] [place] [address] Care Team Providers Care Inspector Packer Glass Container Name Role Phone Huseyin Dangelo MD Unavailable [phone] Brian Mon MD Primary Care Provider + Ernie Shaw MD Unavailable [phone] Reason for Visit * Reason Onset Date Comments Follow-up 02/05/2021 breast pain Encounter Details Date Type Department Care Team (Late st Contact Info) Description 02/05/2021 Nurse Triage [address] [address] Fallon Callahan RN Social History Tobacco Use Types Packs/Day [...] in a long-term (including now)? No 01/01/2021 [place] Depression Scale Answer Date Recorded [place] Depression Scale Total 11 01/11/2021 The thought [...] Telephone Encounter - Fallon Callahan RN - 02/05/2021 8:46 AM CST Reason for Disposition ??? [1] Breast looks infected (e.g., spreading redness) AND [2] no fever Answer Assessment - Initial Assessment Questions 1. SYMPTOM: What's the main symptom you're concerned about? (e.g., lump, pain, rash, nipple discharge) Abcess in R breast closest to armpit 2. LOCATION: Where is the abcess located? r breast 3. ONSET: When did symptoms start? A week ago 4. PRIOR HISTORY: Do you have any history of prior problems with your breasts? (e.g., lumps, cancer, fibrocystic breast disease) no 5. CAUSE: What do you think is causing this symptom? Breast abcess 6. OTHER SYMPTOMS: Do you have any other symptoms? (e.g., fever, breast pain, redness or rash, nipple discharge) Breast pain, half dollar sized lump 7. -: Is there any chance you are ? When was your last menstrual period? Are you ? , LMP 03/2020 Protocols used: - BREAST PAIN AND [id number]-LE, BREAST MEXPMTRL-MVLNW-PR 30 y/o at 5 weeks calls reporting breast abcess in R breast near armpit, half dollar size. States she does not have a fever, and area is not hot or red. States she went to urgent care and was told that it was a breast abcess. States she thinks she had a plugged milk duct and has not been able to relieve it. States she has been using methods to relieve this, but they are not working. States she will go to her nearest ED to be seen today. ITY NURSE documented in this encounter Plan of Treatment Not on file documented as of this encounter Visit Diagnoses Not on filedocumented in this encounter Care Teams Inspector Packer Glass Container Relationship Specialty [place] [id number] [address] PCP - General 07/04/19 [place] [address] [facility] RA[address] [place] [address] 11/16/18 Ernie Shaw MD [address] [place] [address] [address] [place] [address] Linux Kernel Developer Obstetrics and Gynecology 06/10/20 documented as of this encounter
--- OUTSIDE RECORDS SUMMARY | 2024-02-24 20:00 | XMS_ITS | Encounter Summary ---
Author Organization [facility] [employer] [facility] Address [address] [place] [address] Phone Care Team Providers Care Board Setter Name Role Phone Huseyin Dangelo MD Unavailable [phone] Brian Mon MD Primary Care Provider + Ernie Shaw MD Unavailable [phone] Reason for Visit * Reason Onset Date Comments Call back from message left. 01/28/2021 Encounter Details Date Type Department Care Team (Late st Contact Info) Description 01/28/2021 Telephone [facility] Maternal- Medicine [address] [facility] Outpatient Health 7th Floor [address] [place] [address] Fariba Chin RN Call back from message left. Social History Tobacco Use Types Packs/Day Years [...] and Family Not on file 01/01/2021 Attends [employer] Not on file 01/01 Active Member [...] in a mcfp (including now)? No 01/01/2021 [place] Depression Scale Answer Date Recorded [place] Depression Scale Total 11 01/11/2021 The thought [...] encounter Miscellaneous Notes * Telephone Encounter - Fariba Chin RN - 01/28/2021 8:23 AM CST Carito called and left a message requesting a call back. I called her back this morning. She stated she thought her appt was zoom today and she will not be able to make it. She also asked what the appt was for. I reviewed her chart and she is 4 weeks . She has already had a [address] Sorto. She has problems with breast feeding and possible mastitis. I asked if she was still have issues with breast feeding and possible mastitis and clogged ducts. She stated everything is much better and she is not having anymore issues. I asked ifblanche had any concerns with her c/s incision site. She stated is is great and has been healed since 2weeks . She stated she does not wish to reschedule this appt and will come for the appt on 02/14 for 6 week check up. I let her know that if she has any issues between now and then to please call and schedule and apptto be seen. She verbalized understanding. EL COUNSELOR documented in this encounter Plan of Treatment Not on file documented as of this encounter Visit Diagnoses Not on filedocumented in this encounter Additional Health Concerns Infection Onset Date Last Indicated Resolved Time COVID: Suspected 01/14/2021 01/14/2021 01/28/2021 3:05 AM TRAVEL COUNSELOR documented as of this encounter Care Teams Board Setter Relationship Specialty [place] [address] [address] [place] [address] PCP - General 07/04/19 [place] [address] [address] [facility] [place] [address] 11/16/18 Ernie Shaw MD [address] [facility] [address] AUG[address] [place] [address] Special Education Secretary Obstetrics and Gynecology 06/10/20 documented as of this encounter
--- OUTSIDE RECORDS SUMMARY | 2024-02-24 20:00 | XMS_ITS | Encounter Summary ---
Author Organization [facility] [employer] [facility] Address [address] [place] [address] Phone Care Team Providers Care Certified Pharmacy Tech Name Role Phone Huseyin Dangelo MD Unavailable [phone] Brian Mon MD Primary Care Provider + Ernie Shaw MD Unavailable [phone] Reason for Visit * Reason Onset Date Comments breast concerns 01/24/2021 Encounter Details Date Type Department Care Team (Late st Contact Info) Description 01/24/2021 Telephone [facility] Maternal- Medicine [address] [facility] Outpatient Health 7th Floor [address] [place] [address] Leti Ricks breast concerns Social History Tobacco Use Types Packs/Day Years [...] in a half-way (including now)? No 01/01/2021 [place] Depression Scale Answer Date Recorded [place] Depression Scale Total 11 01/11/2021 The thought [...] * Telephone Encounter - Leti Ricks - 01/24/2021 11:57 AM CST Pt called to see if she could stop taking the Keflex that was prescribed to her for mastitis. Pt tells me that she does not think she is getting any better and it has been 3 days on the medication. She reports that she continues to have nipple itching and breasts are red and painful. She does report that the hard lump has gone away. She would like to stop the Keflex as she has been unable to givethe baby any breastmilk since starting it per neonatology. Pt told me that the NICU doctors told her that Keflex can cause projectile vomiting in baby. Pt currently denies fever but advised me that she never gets fevers due to Prednisone use. Advised pt that I would check with provider. After discussing with Dr Sorto, advised pt to contact her nurse to trouble shoot. Ok to discontinue Keflex if she does not feel it is helping. Call to see about moving appt currently set upfor Sunday if is not able to provide additional guidance. Pt tells me that she has the number for and will reach out to them for guidance. She is agreeable to this plan. TEGY ANALYST documented in this encounter Plan of Treatment Not on file documented as of this encounter Visit Diagnoses Not on filedocumented in this encounter Additional Health Concerns Infection Onset Date Last Indicated Resolved Time COVID: Suspected 01/14/2021 01/14/2021 01/28/2021 3:05 AM STRATEGY ANALYST documented as of this encounter Care Teams Certified Pharmacy Tech Relationship Specialty [place] [address] [address] [address] PCP - General 07/04/19 [place] [address] [address] [place] [address] 11/16/18 Ernie Shaw MD [address] [facility] [address] AUG[address] [place] [address] Parent Partner Obstetrics and Gynecology 06/10/20 documented as of this encounter
--- OUTSIDE RECORDS SUMMARY | 2024-02-24 20:00 | XMS_ITS | Encounter Summary ---
Author Organization [facility] Healthcare Address [address] [place] [address] Care Team Providers Care Workforce Management Coordinator Name Role Phone Huseyin Dangelo MD Unavailable [phone] Brian Mon MD Primary Care Provider + Ernie Shaw MD Unavailable [phone] Reason for Visit * Reason Comments Breast Pain Encounter Details Date Type Department Care Team (Late st Contact Info) Description 02/05/2021 9:54 AM ROLLING MILL OPERATOR HELPER - 02/05/2021 11:42 AM ROLLING MILL OPERATOR HELPER Emergency [facility] Emergency Department [address] [place] [address] Breast mass (Primary Dx) Discharge Disposition: Discharge to home [...] a long term (including now)? No 01/01/2021 Seanor Depression Scale Answer Date Recorded Seanor Depression Scale Total 11 01/11/2021 The thought [...] Sign Reading Time Taken Comments Blood Pressure 109/89 02/05/2021 9:54 AM ROLLING MILL OPERATOR HELPER Pulse 59 02/05/2021 9:52 AM ROLLING MILL OPERATOR HELPER Temperature 35.7 ??C (96.2 ??F) 02/05/2021 9:52 AM CS T Respiratory Rate 18 02/05/2021 9:52 AM ROLLING MILL OPERATOR HELPER Oxygen Saturation 99% 02/05/2021 9:52 AM ROLLING MILL OPERATOR HELPER Inhaled Oxygen Concentration - - Weight 77.1 kg (170 lb) 02/05/2021 9:52 AM ROLLING MILL OPERATOR HELPER Height 157.5 cm (5' 2 ) 02/05/2021 9:52 AM ROLLING MILL OPERATOR HELPER Body Mass Index 31.09 02/05/2021 9:52 AM ROLLING MILL OPERATOR HELPER documented in this encounter Discharge Diagnoses Diagnosis Unspecified lump in the right breast, unspecified quadrant - UNSPECIFIED LUMP IN THE RIGHT BREAST, UNSPECIFIED QUADRANT Rheumatoid arthritis, unspecified (HCC) - RHEUMATOID ARTHRITIS, UNSPECIFIED 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 * Breast Lump, Uncertain Cause ([place]) documented in this encounter Medications at Time [...] 30 tablet 11 01/03/2021 3 PNV with [id number] 27 mg iron- 1 mg tabletIndications:V itamin [...] documented in this encounter ED Notes * Saadia Pineda, AREA PLANT MANAGER - 02/05/2021 11:09 AM CST Images from the original note were not included. HPI Chief Complaint Patient presents with ??? Breast Pain 30 yo F with hx of Lupus and chronic prednisone use, presents to ED with complaints of a tender lump to the right side of her breast. Pt is 5 weeks post and has been exclusively pumping. Pt states she has had this lump for the last 3 weeks and was seen at the urgent care yesterday and was told it could be an abscess. Pt was given Keflex 3 weeks ago for this and was only able to take 3 doses due to a possible allergic reaction to baby. Denies any fevers, chills, vomiting, chest pain, or SOB. Pt states she has been trying everything to resolve a clogged duct including warm compresses, massage, dangle pumping, and OTC analgesics without relief. Patient History: Patient Active Problem List Diagnosis [...] anemia 12/24/2019 ??? Joint pain 12/24/2019 ??? 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 Epilepsy undetermined [...] Review of Systems Review of Systems Constitutional: Negative. Respiratory: Negative. Cardiovascular: Negative. Gastrointestinal: Negative. Genitourinary: Negative. Musculoskeletal: Negative. Skin: Negative. Neurological: Negative. All other systems reviewed and are negative. Breast: Positive for tenderness and lump(s). Physical Exam ED Triage Vitals Temp Pulse Resp BP SpO2 02/05/21 0952 02/05/21 0952 02/05/21 0952 02/05/21 0954 02/05/21 0952 (!) 35.7 ??C (96.2 ??F) 59 18 109/89 99 % Temp src Heart Rate Source Patient Position BP Location FiO2 (%) 02/05/21 0952 -- -- 02/05/21 0954 -- Temporal Right arm Physical Exam Vitals and nursing note reviewed. Exam conducted with a senior it engineer present (Angela MAST). Constitutional: General: She is not in acute distress. Appearance: Normal appearance. She is not ill-appearing, toxic-appearing or diaphoretic. HENT: Head: Normocephalic and atraumatic. Right Ear: External ear normal. Left Ear: External ear normal. Eyes: Extraocular Movements: Extraocular movements intact. Conjunctiva/sclera: Conjunctivae normal. Cardiovascular: Rate and Rhythm: Normal rate. Pulses: Normal pulses. Pulmonary: Effort: Pulmonary effort is normal. No respiratory distress. Chest: Breasts: Right: Mass and tenderness present. No swelling, bleeding, inverted nipple, nipple discharge or skin change. Musculoskeletal: General: Normal range of motion. Cervical back: Normal range of motion. Skin: General: Skin is warm and dry. Capillary Refill: Capillary refill takes less than 2 seconds. Findings: No bruising, erythema or rash. Neurological: General: No focal deficit present. Mental Status: She is alert and oriented to person, place, and time. Psychiatric: Mood and Affect: Mood normal. Behavior: Behavior normal. Thought Content: Thought content normal. Judgment: Judgment normal. MDM Medical Decision Making Differential Diagnosis or Management Options: Clogged duct Abscess Breast mass Adenopathy Lactating adenoma Critical care performed: No ED Course as of 02/05/21 1141 Time: 02/05 1048 Comment: Pt requesting a diflucan, stating she has had vaginal itching and discharge ever since shetook Keflex 3 weeks ago. By: Saadia Pineda NP Time: 02/05 1117 Comment: 1. Right breast 2.9 cm palpable mass at the 8 o'clock position is suspicious for malignancy (intermediate suspicion). Differential considerations include lactating adenoma and fibroadenoma. Ultrasound-guided biopsy is recommended. 2. No evidence of right axillary lymphadenopathy. ?? BIRAD 4b - Suspicious. Biopsy should be considered. COMMENT: The patient has been or will be notified of these findings and impression. ?? By: Saadia Pineda NP Time: 02/05 1139 Comment: Spoke to Elina CAGLE with general surgery who states Dr. Cooney can see pt on Sunday shanae Cosby. Pt made aware of US results and the need for a biopsy. Pt gave verbal understanding. By: Saadia Pineda NP Final diagnoses: Breast mass Saadia Pineda NP 02/05/21 114 Cosigned by Maryam Gomez MD at 02/05/2021 9:51 PM ROLLING MILL OPERATOR HELPER ING MILL OPERATOR HELPER ING MILL OPERATOR HELPER Associated attestation - Maryam Gomez MD - 02/05/2021 9:51 PM ROLLING MILL OPERATOR HELPER ED Attestation Based on the medical record the care appears appropriate. * Marci Madison RN - 02/05/2021 9:50 AM CST Pt reports that she is breast feeding and she has a large lump to the R breast x 1 week that has not changed in size ING MILL OPERATOR HELPER documented in this encounter Plan of Treatment Not on file documented as of this encounter Procedures Procedure Name Priority Date/Time Associated Diagnosis Comments US BREAST RIGHT LIMITED ED 02/05/2021 10:56 AM ROLLING MILL OPERATOR HELPER SEPSIS LACTATE WITH REFLEX STAT 02/05/2021 10:39 AM ROLLING MILL OPERATOR HELPER EGFR STAT 02/05/2021 10:39 AM ROLLING MILL OPERATOR HELPER DIFFERENTIAL AUTO STAT 02/05/2021 10: 39 AM ROLLING MILL OPERATOR HELPER CBC WITH AUTO DIFFERENTIAL STAT 02/05/2021 10:39 AM ROLLING MILL OPERATOR HELPER BLOOD CULTURE STAT 02/05/2021 10:39 AM ROLLING MILL OPERATOR HELPER ERYTHROCYTE SEDIMENTATION RATE STAT 02/05/2021 10:39 AM ROLLING MILL OPERATOR HELPER CRP (ACUTE PHASE) STAT 02/05/2021 10: 39 AM ROLLING MILL OPERATOR HELPER COMPREHENSIVE METABOLIC PANEL STAT 02/05/2021 10:39 AM ROLLING MILL OPERATOR HELPER documented in this encounter Results * US Breast Right Limited (02/05/2021 10:56 AM ROLLING MILL OPERATOR HELPER) Anatomical Region Laterality Modality Breast Right Ultrasound 02/05/2021 11:0 4 AM ROLLING MILL OPERATOR HELPER Narrative 02/05/2021 11:11 AM ROLLING MILL OPERATOR HELPER EXAM DESCRIPTION: ?US BREAST RIGHT LIMITED REASON FOR STUDY: ?? 30-year-old female presents for evaluation of a palpable nonpainful lump in her right breast for 1 week. ??The patient is 5 weeks and currently . COMPARISON: ?? None available TECHNIQUE: Limited grayscale and color Doppler ultrasound of the right breast was performed. FINDINGS: Targeted ultrasound of the right breast palpable area of concern at 8 o'clock, 6 cm from the nipple demonstrates a 2.5 x 2.3 x 2.9 cm heterogeneously hypoechoic mass with microlobulated margins, both increased through transmission and posterior acoustic shadowing, and evidence of internal blood flow on color Doppler imaging. ??Sonographic assessment of the right axilla demonstrates no evidence of suspicious axillary lymphadenopathy. IMPRESSION: ?? 1. ?? Right breast 2.9 cm palpable mass at the 8 o'clock position is suspicious for malignancy (intermediate suspicion). ??Differential considerations include lactating adenoma and fibroadenoma. ??Ultrasound-guided biopsy is recommended. 2. ?? No evidence of right axillary lymphadenopathy. BIRAD 4b - Suspicious. Biopsy should be considered. COMMENT: The patient has been or will be notified of these findings and impression. THIS IS AN ELECTRONICALLY VERIFIED FINAL REPORT 02/05/2021 11:11 AM - Electronically signed by ??Faizan Loya M.D., MD: D: ??02/05/2021 11:11 AM T: ??02/05/2021 11:11 AM Report ID: [id number] Reading Location: ??[id number] us Saadia Pineda NP IMG MAMMO PROCEDURES Final R esult * eGFR (02/05/2021 10:39 AM ROLLING MILL OPERATOR HELPER) eGFR 121 mL/min/1.7 3 m2 [facility] ([place]) Comment: Interpretive Data Reference Interval Normal ?>/= 90 mL/min/1.73m2 Mildly decreased* ? 60 - 89 mL/min/1.73m2 Mildly to moderately decreased ?45 - 59 mL/min/1.73m2 Moderately to severely decreased ??30 - 44 mL/min/1.73m2 Severely decreased ?15 - 29 mL/min/1.73m2 Kidney Failure ?< 15 ??mL/min/1.73m2 *Relative to young adult level Estimated glomerular filtration rate is determined by the CKD-EPI equation recommended by the National Kidney Foundation (KDIGO 2012 Clinical Practice Guideline for the Evaluation and Management of Chronic Kidney Disease. Kidney Intnl Suppl Feb 2012;3:1). The CKD-EPI equation should not be used for patients with unstable renal function and has not been validated in children and those over 70. Current interpretive data was last reviewed 2020 Blood 02/05/2021 10:3 9 AM ROLLING MILL OPERATOR HELPER 02/05/2021 10:42 AM ROLLING MILL OPERATOR HELPER us Saadia Pineda NP LAB BLOOD ORDERABLES Final R esult [facility] ([place]) 1 [facility] Department [place] [address] * Differential, auto (02/05/2021 10:39 AM ROLLING MILL OPERATOR HELPER) Neutrophil abs 5.3 1.7 - 6.5 K/cumm [facility] ([place]) Imm gran abs 0.0 0.0 - 0.1 K/cumm [facility] ([place]) Lymphocyte abs 1.7 0.8 - 3.3 K/cumm [facility] ([place]) Monocyte abs 0.5 0.2 - 0.8 K/cumm [facility] ([place]) Eosinophil abs 0.3 0.0 - 0.5 K/cumm [facility] ([place]) Basophil abs 0.0 0.0 - 0.1 K/cumm [facility] ([place]) Neutrophil pct 67.6 % [facility] ([place]) Comment: Interpretive [...] was last revised on 2017. Lymphocyte pct 21.3 % [facility] ([place]) Comment: Interpretive Data Percent cell count reference ranges are not reported, since discordance with absolute values may lead to misinterpretation of CBC data. Current Interpretive Data was last revised on 2017. Monocyte pct 6.1 % [facility] ([place]) Comment: Interpretive Data Percent cell count reference ranges are not reported, since discordance with absolute values may lead to misinterpretation of CBC data. Current Interpretive Data was last revised on 2017. Eosinophil pct 4.2 % [facility] ([place]) Comment: Interpretive Data Percent cell count reference ranges are not reported, since discordance with absolute values may lead to misinterpretation of CBC data. Current Interpretive Data was last revised on 2017. Basophil pct 0.5 % [facility] ([place]) Comment: Interpretive Data Percent cell count reference ranges are not reported, since discordance with absolute values may lead to misinterpretation of CBC data. Current Interpretive Data was last revised on 2017. Blood 02/05/2021 10:3 9 AM ROLLING MILL OPERATOR HELPER 02/05/2021 10:42 AM ROLLING MILL OPERATOR HELPER us Saadia Pineda AREA PLANT MANAGER LAB BLOOD ORDERABLES Final R esult [facility] ([place]) 1 [facility] [place] [address] * Erythrocyte sedimentation rate (02/05/2021 10:39 AM ROLLING MILL OPERATOR HELPER) Erythrocyte sedimentation rate 14 1 - 20 mm/hr [facility] ([place]) Blood 02/05/2021 10:3 9 AM ROLLING MILL OPERATOR HELPER 02/05/2021 10:42 AM ROLLING MILL OPERATOR HELPER us Saadia Pineda AREA PLANT MANAGER LAB BLOOD ORDERABLES Final R esult Performing Organization Address City/[facility] Co de Phone Number [facility] ([place]) 1 [facility] [place] [address] * (ABNORMAL) CRP (acute phase) (02/05/2021 10:39 AM ROLLING MILL OPERATOR HELPER) CRP 10.7(H) <=10.0 mg/L [facility] ([place]) Blood 02/05/2021 10:3 9 AM ROLLING MILL OPERATOR HELPER 02/05/2021 10:42 AM ROLLING MILL OPERATOR HELPER us Saadia Pineda AREA PLANT MANAGER LAB BLOOD ORDERABLES Final R esult Performing Organization Address City/[facility]/ZIP Co de Phone Number [facility] ([place]) 1 [facility] [place] [address] * Blood culture Blood Peripheral (02/05/2021 10:39 AM ROLLING MILL OPERATOR HELPER) Report Final Report: No growth [facility] ([place]) Comment:Testing performed by : [facility], [address] [facility], [place]., [address] Blood (Peripheral) 02/05/2021 10:39 AM ROLLING MILL OPERATOR HELPER 02/05/2021 2:22 PM ROLLING MILL OPERATOR HELPER Narrative [facility] ([place]) - 02/09/2021 4:00 PM ROLLING MILL OPERATOR HELPER Draw Blood cultures before administration of Antibiotics 1. ?Blood cultures are incubated for 4 days on a continuously monitored blood culture system. The first report of a negative culture is issued within 24 hours of receipt of the specimen in the laboratory. 2. ?Positive culture results are reported as soon as they are detected. 3. ?The most important factor for detection of microbes in the setting of bloodstream infection is the volume of blood submitted for culture. Failure to collect an optimal blood volume can result in false negative blood cultures. For pediatric patients, the recommended blood volume to collect is 1 mL of blood per year of patient age (up to 20 mL) per blood culture set. For adult patients, 20 mL of blood, divided equally between aerobic and anaerobic blood culture bottles, is recommended for each blood culture set. 4. ?For blood cultures with Gram-positive cocci, a rapid molecular test for organism identification may be performed using the CBLPathigene Gram-Positive Blood Culture Assay. This assay detects microbial DNA in positive blood culture broth via hybridization of target DNA to capture oligonucleotides on a microarray. This assay has been cleared by the [place] Food and Drug Administration and its performance characteristics have been verified by the [facility] Laboratory. 5. ?For questions about this culture, contact the Microbiology Laboratory at [phone]. Interpretive data was last revised on 2019. Saadia Pineda NP LAB MICROBIOLOGY - GENERAL O RDERABLES Final Result [facility] ([place]) 1 [facility] Department [place] [address] * Sepsis Lactate w/ Reflex (02/05/2021 10:39 AM ROLLING MILL OPERATOR HELPER) [facility] Sepsis Lactate 0.8 0.7 - 2.0 mmol/L [facility] ([place]) Blood 02/05/2021 10:3 9 AM ROLLING MILL OPERATOR HELPER 02/05/2021 10:42 AM ROLLING MILL OPERATOR HELPER us Saadia M. Pineda AREA PLANT MANAGER LAB BLOOD ORDERABLES Final R esult [facility] ([place]) 1 [facility] Department [place] [address] * Comprehensive metabolic panel (02/05/2021 10:39 AM ROLLING MILL OPERATOR HELPER) Sodium 143 135 - 145 mmol/L [facility] ([place]) Potassium, pl 4.0 3.3 - 4.9 mmol/L [facility] ([place]) Chloride 105 97 - 110 mmol/L [facility] ([place]) CO2 27 22 - 32 mmol/L [facility] ([place]) Anion gap 11 2 - 15 mmol/L [facility] ([place]) BUN 14 8 - 25 mg/dL [facility] ([place]) Creatinine 0.65 0.60 - 1.10 mg/dL [facility] ([place]) Glucose 99 70 - 199 [...] interpretive data was last revised 2017. Calcium 9.5 8.5 - 10.3 mg/dL [facility] ([place]) Bilirubin, total 0.3 0.1 - 1.2 mg/dL [facility] ([place]) Protein, pl 7.3 6.5 - 8.5 g/dL [facility] ([place]) Albumin 4.4 3.5 - 5.0 g/dL [facility] ([place]) Alk phos 79 40 - 130 Units/L [facility] ([place]) ALT 18 7 - 45 Units/L [facility] ([place]) AST 17 10 - 45 Units/L [facility] ([place]) Blood 02/05/2021 10:3 9 AM ROLLING MILL OPERATOR HELPER 02/05/2021 10:42 AM ROLLING MILL OPERATOR HELPER us Saadia Pineda AREA PLANT MANAGER LAB BLOOD ORDERABLES Final R esult [facility] ([place]) 1 [facility] [employer] [place] [address] * (ABNORMAL) CBC with auto differential (02/05/2021 10:39 AM ROLLING MILL OPERATOR HELPER) WBC 7.9 3.8 - 9.9 K/cumm [facility] ([place]) Hgb 12.1 11.9 - 15.5 g/dL [facility] ([place]) Hct 38.1 35.6 - 45.5 % [facility] ([place]) Plt 274 150 - 400 K/cumm [facility] ([place]) MPV 10.0 9.1 - 12.3 fL [facility] ([place]) RBC 4.12 3.90 - 5.20 M/cumm [facility] ([place]) MCV 92.5 81.3 - 96.4 fL [facility] ([place]) MCH 29.4 27.1 - 33.3 pg [facility] ([place]) MCHC 31.8(L) 32.3 - 35.7 g/dL [facility] ([place]) RDW CV 14.3 11.1 - 14.9 % [facility] ([place]) RDW SD 48.3(H) 35.7 - 48.1 fL [facility] ([place]) NRBC abs 0.00 0.00 - 0.01 K/cumm [facility] ([place]) Blood 02/05/2021 10:3 9 AM ROLLING MILL OPERATOR HELPER 02/05/2021 10:42 AM ROLLING MILL OPERATOR HELPER us Saadia Pineda AREA PLANT MANAGER LAB BLOOD ORDERABLES Final R esult [facility] ([place]) 1 [facility] [place] [address] documented in this encounter Visit Diagnoses Diagnosis Breast mass- Primary Lump or mass in breast documented in this encounter Administered Medications Inactive Administered Medications - up to 3 most recent administrations Medication Order MAR Action Action Date Dose Rate Site fluconazole (DIFLUCAN) tablet 200 mg 200 mg, oral, Once, On 02/05/21 at 1048, For 1 dose, Indications: Urinary Tract/Genitourinary InfectionIndications:Urinary Tract/Genitourinary Infection Given 02/05/2021 11:34 AM ROLLING MILL OPERATOR HELPER 200 mg documented in this encounter Active and Recently Administered Medications Times are shown in ROLLING MILL OPERATOR HELPER. Scheduled Medication Order 02/03/2021 02/04/2021 02/05/2021 fluconazole (DIFLUCAN) tablet 200 mg (COMPLETED) 200 mg, oral, Once, On 02/05/21 at 1048, For 1 dose, Indications: Urinary Tract/Genitourinary Infection 1134 (Given - Provid er: Angela Sumner RN) documented in this encounter Orders Medications Ordered That Omer ht Not Have Been Administered Count Last Ordered Date First Ordered Date fluconazole (DIFLUCAN) tablet 200 mg 1 01/26 documented in this encounter Care Teams Workforce Management Coordinator Relationship Specialty [place] [address] [address] [facility] [place] [address] PCP - General 07/04/19 [place] [address] [address] [facility] [place] [address] 11/16/18 Ernie Shaw MD [address] [place] [address] [address] [facility] [place] [address] Marine Engine Machinist Obstetrics and Gynecology 06/10/20 documented as of this encounter
--- OUTSIDE RECORDS SUMMARY | 2024-02-24 20:00 | XMS_ITS | Encounter Summary ---
Author Organization [facility] [place] Address [address] [place] [address] Phone Care Team Providers Care Broom Machine Operator Name Role Phone Huseyin Dangelo MD Unavailable [phone] Brian Mon MD Primary Care Provider + Ernie Shaw MD Unavailable [phone] Encounter Details Date Type Department Care Team (Late st Contact Info) Description 02/10/2021 Telephone [facility] Obstetrics and Gynecology [address] [place] [id number] Shanell Hodge Social History Tobacco Use Types Packs/Day Years [...] in a snf (including now)? No 01/01/2021 [place] Depression Scale Answer Date Recorded [place] Depression Scale Total 11 01/11/2021 The thought [...] encounter Miscellaneous Notes * Telephone Encounter - Shanell Ribeiro - 02/10/2021 10:54 AM CST Patient scheduled 02/14 @ 9:30 UCTION MAINTENANCE MECHANIC * Telephone Encounter - Shanell Ribeiro - 02/10/2021 10:54 AM CST ----- Message from Leti Ricks sent at 02/10/2021 10:44 AM PRODUCTION MAINTENANCE MECHANIC ----- [facility] morning, Could someone please reach out to Carito. She would like to be seen in person next week and not Zoom. Thank you Kellen UCTION MAINTENANCE MECHANIC documented in this encounter Plan of Treatment Not on file documented as of this encounter Visit Diagnoses Not on filedocumented in this encounter Care Teams Broom Machine Operator Relationship Specialty [place] [address] [place] [address] PCP - General 07/04/19 [place] [address] [address] [place] [address] 11/16/18 Ernie Shaw MD [address] [place] [address] [address] [place] [address] Developmental Training Counselor Obstetrics and Gynecology 06/10/20 documented as of this encounter
--- OUTSIDE RECORDS SUMMARY | 2024-02-24 20:00 | XMS_ITS | Encounter Summary ---
Author Organization [facility] Address [address] [facility] [address] [place] [address] Care Team Providers Care Building Materials Sales Attendant Name Role Phone Huseyin Dangelo MD Unavailable [phone] Brian Mon MD Primary Care Provider + Ernie Shaw MD Unavailable [phone] Encounter Details Date Type Department Care Team (Late st Contact Info) Description 03/06/2021 Orders Only [facility] Accountable Care Organization [address] [place] [address] Katie Sidhu RN [address] [place] [id number] Social History Tobacco Use Types Packs/Day Years [...] in a correction (including now)? No 01/01/2021 [place] Depression Scale Answer Date Recorded [place] Depression Scale Total 11 01/11/2021 The thought [...] filedocumented in this encounter Care Teams Building Materials Sales Attendant Relationship Specialty [place] [address] [address] [address] PCP - General 07/04/19 [place] [address] [address] [address] 11/16/18 Ernie Shaw MD [address] [place] [address] [address] [place] [address] Bankruptcy Law Specialist Obstetrics and Gynecology 06/10/20 documented as of this encounter
--- OUTSIDE RECORDS SUMMARY | 2024-02-24 20:00 | XMS_ITS | Encounter Summary ---
Author Organization [facility] Address [address] [place] [address] Care Team Providers Care Lace Weaver Name Role Phone Huseyin Dangelo MD Unavailable [phone] Brian Mon MD Primary Care Provider + Ernie Shaw MD Unavailable Reason for Visit * Reason Comments Mass Right Breast Encounter Details Date Type Department Care Team (Late st Contact Info) Description 02/10/2021 3:00 PM CLERICAL ASSIGNER Office Visit [facility] [address] [facility] [address] [place] [address] Cirilo Cooney MD [address] [place] [address] [address] [place] [address] Breast mass, right (Primary Dx) Social History Tobacco Use Types [...] and Family Not on file 01/01/2021 Attends Pentecostalism Services Not on file 01/01 Active Member [...] in a custodial (including now)? No 01/01/2021 [place] Depression Scale Answer Date Recorded [place] Depression Scale Total 11 01/11/2021 The thought [...] Sign Reading Time Taken Comments Blood Pressure 103/69 02/10/2021 3:03 PM CLERICAL ASSIGNER Pulse 66 02/10/2021 3:03 PM CLERICAL ASSIGNER Temperature 35.7 ??C (96.2 ??F) 02/10/2021 3:03 PM CS T Respiratory Rate - - Oxygen Saturation 98% 02/10/2021 3:03 PM CLERICAL ASSIGNER Inhaled Oxygen Concentration - - Weight 77.4 kg (170 lb 11.2 oz) 02/10/2021 3:03 PM CLERICAL ASSIGNER Height 160 cm (5' 3 ) 02/10/2021 3:03 PM CLERICAL ASSIGNER Body Mass Index 30.24 02/10/2021 3:03 PM CLERICAL ASSIGNER documented in this encounter Progress Notes * Cirilo Cooney MD - 02/10/2021 3:00 PM CST Images from the original note were not included. Subjective/Objective Patient ID: Carito Madison is a 30 y.o. female. Chief Complaint Mass (Right Breast) History of Present Illness 30-year-old woman presents with complaints of a right-sided breast mass. It has been present for about 2 weeks. It is not painful. No bloody nipple discharge. She is currently nursing. Recent . Patient noticed the mass herself. Ultrasound was obtained which showed an approximately 3 cm mass at the 8 o'clock position. BI-RADS 4b. Review of Systems Review of Systems Constitutional: Negative for appetite change, chills, fatigue, fever and unexpected weight change. HENT: Negative for hearing loss, tinnitus, trouble swallowing and voice change. Eyes: Negative for visual disturbance. Respiratory: Negative for cough, shortness of breath, wheezing and stridor. Cardiovascular: Negative for chest pain, palpitations and leg swelling. Gastrointestinal: Negative for abdominal distention, abdominal pain, constipation, diarrhea, nauseaand vomiting. Endocrine: Negative for cold intolerance and heat intolerance. Genitourinary: Negative for difficulty urinating, frequency, hematuria and urgency. Musculoskeletal: Negative for arthralgias, back pain and myalgias. Skin: Negative for color change and rash. Allergic/Immunologic: Negative for environmental allergies and food allergies. Neurological: Negative for dizziness, seizures, syncope, numbness and headaches. Hematological: Negative for adenopathy. Does not bruise/bleed easily. Psychiatric/Behavioral: Negative for agitation, behavioral problems and confusion. The patient is not nervous/anxious. Physical Exam Physical Exam Vitals reviewed. Constitutional: Appearance: She is well-developed. HENT: Head: Normocephalic and atraumatic. Eyes: General: No scleral icterus. Neck: Thyroid: No thyromegaly. Cardiovascular: Rate and Rhythm: Normal rate and regular rhythm. Heart sounds: Normal heart sounds. No murmur heard. No friction rub. No gallop. Pulmonary: Effort: Pulmonary effort is normal. No respiratory distress. Breath sounds: Normal breath sounds. No wheezing. Chest: Breasts: Right: Mass present. No swelling, bleeding, inverted nipple, nipple discharge, skin change, tenderness, axillary adenopathy or supraclavicular adenopathy. Left: Normal. No axillary adenopathy or supraclavicular adenopathy. Abdominal: General: Bowel sounds are normal. There is no distension. Palpations: Abdomen is soft. Musculoskeletal: General: Normal range of motion. Cervical back: Normal range of motion and neck supple. Lymphadenopathy: Cervical: No cervical adenopathy. Upper Body: Right upper body: No supraclavicular or axillary adenopathy. Left upper body: No supraclavicular or axillary adenopathy. Skin: General: Skin is warm and dry. Neurological: Mental Status: She is alert and oriented to person, place, and time. Psychiatric: Behavior: Behavior normal. Thought Content: Thought content normal. Judgment: Judgment normal. Assessment/Plan Diagnoses and all orders for this visit: Breast mass, right (N63.10) (Primary) We will schedule an ultrasound-guided biopsy. Explained to the patient that this is most likely a benign lesion but associated breast cancer must be ruled out. ICAL ASSIGNER documented in this encounter Plan of Treatment Not on file documented as of this encounter Visit Diagnoses Diagnosis Breast mass, right- Primary Lump or mass in breast documented in this encounter Historical Medications * This list may reflect changes made after this encounter. Medication Sig Dispense Quantity Refills Last Filled Start D ate End Date fluconazole (DIFLUCAN) 150 mg tablet 02/04/2021 07/25/2021 added in this encounter Care Teams Lace Weaver Relationship Specialty [place] [address] [address] [address] PCP - General 07/04/19 [place] [address] [address] [address] 11/16/18 Ernie Shaw MD [address] [place] [address] [address] [place] [address] Perforating Machine Operator Obstetrics and Gynecology 06/10/20 documented as of this encounter
--- OUTSIDE RECORDS SUMMARY | 2024-02-24 20:00 | XMS_ITS | Encounter Summary ---
Author Organization [facility] Address [address] [place] [address] Care Team Providers Care President + Publisher Name Role Phone Huseyin Dangelo MD Unavailable [phone] Brian Mon MD Primary Care Provider + Ernie Shaw MD Unavailable Reason for Visit * Reason Onset Date Comments Medical Question/Miscellaneous 01/26/2021 Encounter Details Date Type Department Care Team (Late st Contact Info) Description 01/26/[address] [address] Rachelle Elizabeth RN Medical Question/Miscellaneous Social History Tobacco Use Types Packs/Day Years [...] and Family Not on file 01/01/2021 Attends Taoist Services Not on file 01/01 Active Member [...] in a longterm (including now)? No 01/01/2021 [place] Depression Scale Answer Date Recorded [place] Depression Scale Total 11 01/11/2021 The thought [...] as of this encounter Progress Notes * Rachelle Elizabeth RN - 01/26/2021 5:08 PM CST PT called to ask if she would be able to take a bath now that she is 4 weeks post op . Pt states incision is completely closed, steri strip are off, and reports she has already had vaginal intercourse. Pt instructed OK to take a bath. Pt verbalizes understanding and denies further needs, WASHER documented in this encounter Plan of Treatment Not on file documented as of this encounter Visit Diagnoses Not on filedocumented in this encounter Additional Health Concerns Infection Onset Date Last Indicated Resolved Time COVID: Suspected 01/14/2021 01/14/2021 01/28/2021 3:05 AM HIDE WASHER documented as of this encounter Care Teams President + Publisher Relationship Specialty [place] [address] [address] [place] [address] PCP - General 07/04/19 [place] [address] [address] [facility] [place] [address] 11/16/18 Ernie Shaw MD [address] [place] [address] Tomography Technologist Obstetrics and Gynecology 06/10/20 documented as of this encounter
--- OUTSIDE RECORDS SUMMARY | 2024-02-24 20:00 | XMS_ITS | Encounter Summary ---
Author Organization [facility] Address [address] [place] [address] Phone Care Team Providers Care Professor Of Graphic Design Name Role Phone Huseyin Dangelo MD Unavailable [phone] Brian Mon MD Primary Care Provider + Ernie Shaw MD Unavailable [phone] Encounter Details Date Type Department Care Team (Late st Contact Info) Description 03/05/2021 Telephone [facility] [address] 5[address] [place] [address] [place] [address] Lee Morton MD [address] [facility] [id number] [place] [address] Social History Tobacco Use Types Packs/Day Years [...] and Family Not on file 01/01/2021 Attends Shinto Services Not on file 01/01 Active Member [...] health care facility (including now)? No 01/01/2021 [place] Depression Scale Answer Date Recorded [place] Depression Scale Total 11 01/11/2021 The thought [...] encounter Miscellaneous Notes * Telephone Encounter - Lee Morton MD - 03/05/2021 10:38 PM DRY CELL ASSEMBLY MACHINE TENDER Rheumatology After-Hours Telephone Clinic Note: Patient called stating she tested positive for COVID-19 today after developing symptoms this morning. She reports some mild chest pain but she has been checking her O2 sats at home and they are currently 99. She called asking regarding whether or not there were any medications that she can take andwhat to do with her lupus medications. Patient is on HCQ and prednisone 7.5mg daily (for adrenal insufficiency). We discussed that she should continue these medications. We discussed the monoclonal antibody infusions as she would qualify but we discussed how there is asignificant demand for these infusions and there may be a chance that patient would not receive it due to supply. She confirmed she is not currently . She states she lives closest to [facility]. Placing order for monoclonal antibody infusion. Informed patient that if her clinical condition worsens she should present to the ED for urgent evaluation. Lee Morton MD Rheumatology Fellow The patient will be given the Fact Sheet for Patients, Parents and Caregivers?? when they arrive at the infusion center which goes over this information that they have been given verbally today. The following has been discussed with the patient: The U.S. Food and Drug Administration (FDA) has issued an Emergency Use Authorization (EUA) to permit the emergency use of an unapproved intravenous monoclonal antibody therapy for the treatment of mild to moderate coronavirus disease 2019 (COVID19) or for post-exposure prophylaxis of COVID-19 in patients who are at high risk for progression to severe COVID-19, including hospitalization or .This therapy is given through a vein (intravenous or IV) over 30 minutes with an additional 1 hour observation period. There is limited information known about the safety or effectiveness of using these monoclonal antibodies to treat people with COVID-19. One of the possible side effects of this therapy is an allergic reaction. Allergic reactions can happen during and after the infusion. Symptoms can include chills, nausea, headache, shortness of breath, low blood pressure, wheezing, swelling of the lips, face, or throat, rash including hives, itching, muscle aches, and dizziness. The patient will be observed closely for this and treated as needed. Serious and unexpected side effects may happen. This therapy is still being studied so it is possible that all of the risks are not known at this time. It is possible that the treatment could interfere with the body's own ability to fight off a future infection of SARS-CoV-2. Similarly, it may reduce the body's immune response to a vaccine for SARS-CoV-2. Specific studies have not been conducted to address these possible risks. The CDC recommends deferring COVID vaccination for at least 90 days after this therapy as otherwiseit may interfere with vaccine efficacy. The side effects of getting any medicine by vein may include brief pain, bleeding, bruising of the skin, soreness, swelling, and possible infection at the infusion site. It is the patient's choice to be treated or not to be treated with this therapy. Should they decidenot to receive this infusion or stop it at any time, it will not change the standard medical care. An alternative to receiving this therapy is to receive current standard treatment, which is supportive care. The website ppdqs86uergbngsyioyrdkatso.nih.gov has more information on the emergency use of other medicines that are not approved by FDA to treat people with COVID-19 and clinical trials the patient may be eligible for. The patient agrees, at this time, to proceed with scheduling the infusion treatment. CELL ASSEMBLY MACHINE TENDER documented in this encounter Plan of Treatment Not on file documented as of this encounter Visit Diagnoses Diagnosis COVID-19- Primary documented in this encounter Orders Appointment Requests Count Last Ordered Date Fi rst Ordered Date INFUSION APPT REQUEST 150 MIN 1 03/07/2021 documented in this encounter Care Teams Professor Of Graphic Design Relationship Specialty [place] [address] [address] [facility] [place] [address] PCP - General 07/04/19 [place] [address] [address] [facility] [place] [address] 11/16/18 Ernie Shaw MD [address] [facility] [address] [place] [address] Contour Band Saw Operator Vertical Obstetrics and Gynecology 06/10/20 documented as of this encounter
--- OUTSIDE RECORDS SUMMARY | 2024-02-24 20:00 | XMS_ITS | Encounter Summary ---
Author Organization [facility] Address [address] [place] [address] Phone Care Team Providers Care Cheese Weigher Name Role Phone Huseyin Dangelo MD Unavailable [phone] Brian Mon MD Primary Care Provider + Ernie Shaw MD Unavailable [phone] Encounter Details Date Type Department Care Team (Late st Contact Info) Description 01/31/2021 Orders Only [facility] [address] [facility] [address] [place] [address] Fariba Chin RN Marginal insertion of umbilical cord affecting management of mother in second trimester (Primary Dx); Lupus (CMS/HCC) (HCC); care following delivery Social History Tobacco Use Types Packs/Day Years [...] in a halfway (including now)? No 01/01/2021 [place] Depression Scale Answer Date Recorded [place] Depression Scale Total 11 01/11/2021 The thought [...] as of this encounter Visit Diagnoses Diagnosis Marginal insertion of umbilical cord affecting management of mother in second trimester- Primary Lupus Systemic lupus erythematosus care following delivery documented in this encounter Care Teams Cheese Weigher Relationship Specialty [place] [address] [address] PCP - General 07/04/19 [place] [address] [address] [address] 11/16/18 Ernie Shaw MD [address] [place] [address] [address] [facility] [place] [address] Bench Lathe Operator Obstetrics and Gynecology 06/10/20 documented as of this encounter
--- OUTSIDE RECORDS SUMMARY | 2024-02-24 20:00 | XMS_ITS | Encounter Summary ---
Author Organization [facility] Address [address] [place] [address] Care Team Providers Care Mountain Guide Name Role Phone Huseyin Dangelo MD Unavailable [phone] Brian Mon MD Primary Care Provider + Ernie Shaw MD Unavailable Encounter Details Date Type Department Care Team (Late st Contact Info) Description 02/14/2021 Telephone [facility] [address] [place] [address] Yessenia Kerr RN Social History Tobacco Use [...] in a fci (including now)? No 01/01/2021 [place] Depression Scale Answer Date Recorded [place] Depression Scale Total 11 01/11/2021 The thought [...] Telephone Encounter - Yessenia Kerr RN - 02/14/2021 2:47 PM ELEMENT WINDING MACHINE TENDER Called patient to give pre-procedure instructions for a US Guided Breast Biopsy Right scheduled on 02/23/21 at 1130 with a arrival of 1100 in Medical Imaging and patient verbalized understanding to instructions. ENT WINDING MACHINE TENDER documented in this encounter Plan of Treatment Not on file documented as of this encounter Visit Diagnoses Not on filedocumented in this encounter Care Teams Mountain Guide Relationship Specialty [place] [address] [address] [address] PCP - General 07/04/19 [place] [address] [address] [place] [address] 11/16/18 Ernie Shaw MD [address] [place] [address] [address] [place] [address] Varnish Melter Helper Obstetrics and Gynecology 06/10/20 documented as of this encounter
--- OUTSIDE RECORDS SUMMARY | 2024-02-24 20:00 | XMS_ITS | Encounter Summary ---
Author Organization [facility] Healthcare Address [address] [place] [address] Care Team Providers Care Guyline Operator Name Role Phone Huseyin Dangelo MD Unavailable [phone] Brian Mon MD Primary Care Provider + Ernie Shaw MD Unavailable [phone] Reason for Visit * Reason Comments OP Infusion Encounter Details Date Type Department Care Team (Latest Contact Info) Description 03/07/2021 9:30 AM HYDROPONICS GROWER - 03/07/2021 11:59 PM HYDROPONICS GROWER Hospital Encounter [facility] [address] [facility] [address] [place] [address] Lee Morton MD [id number] [place] [address] COVID-19 (Primary Dx) Discharge Disposition: Discharge to home [...] and Family Not on file 01/01/2021 Attends Sikh Services Not on file 11/06 /2021 Active Member of Clubs or Organizations Not [...] in a jail (including now)? No 01/01/2021 [place] Depression Scale Answer Date Recorded [place] Depression Scale Total 11 01/11/2021 The thought [...] Sign Reading Time Taken Comments Blood Pressure 132/83 03/07/2021 11:35 AM HYDROPONICS GROWER Pulse 67 03/07/2021 11:35 AM HYDROPONICS GROWER Temperature 36.5 ??C (97.7 ??F) 03/07/2021 11:[address] Respiratory Rate 16 03/07/2021 11:35 AM HYDROPONICS GROWER Oxygen Saturation 99% 03/07/2021 11:35 AM HYDROPONICS GROWER Inhaled Oxygen Concentration - - Weight 77.1 kg (170 lb) 03/07/2021 9:56 AM HYDROPONICS GROWER Height 152.4 cm (5') 03/07/2021 9:56 AM HYDROPONICS GROWER Body Mass Index 33.2 03/07/2021 9:56 AM HYDROPONICS GROWER documented in this encounter Medications at Time of Discharge acetaminophen 500 mg capsuleIndications :Pain Take 2 capsules (1,000 mg total) by mouth every 6 (six) hours 30 tablet 01/03/2021 3 al & mag hydroxide with simethicone-diphen hydramine-lidocain e (MAGIC MOUTHWASH) suspension 1-1-1 Swish and swallow 10 mL every 4 (four) hours as needed (oral ulcers) 300 mL 12/09/2020 3 benzonatate (TESSALON) 100 mg capsule 03/05/2021 2 cephalexin (KEFLEX) 500 mg capsule Take 1 capsule (500 mg total) by mouth 4 (four) times a day 28 capsule 01/22/2021 2 cyclobenzaprine (FLEXERIL) 5 mg tablet Take 1 tablet (5 mg total) by mouth 3 (three) times a day as needed for muscle spasms 30 tablet 01/03/2021 3 fluconazole (DIFLUCAN) 150 mg tablet 02/04/2021 2 hydrocortisone (ANUSOL-HC) 2.5 % rectal cream Insert 1 applicator rectally 1-2 times daily as needed when hemorrhoids are flared up. 30 g 5 03/04/2021 3 hydrOXYchloroQUINE (PLAQUENIL) 200 mg tablet Take 2 tablets (400 mg total) by mouth daily 60 tablet 5 09/30/[address] (PROTONIX) 40 mg EC tabletIndications: Stress Ulcer Prophylaxis Take 1 tablet (40 mg total) by mouth daily 30 tablet 11 01/03/2021 3 PNV with [id number] 27 mg iron- 1 mg tabletIndications: Vitamin Deficiency Prevention Take 1 tablet by mouth daily 30 tablet 1 01/04/2021 3 predniSONE (DELTASONE) 2.5 mg tablet Take 3 tablets (7.5 mg) by mouth daily 30 tablet 2 01/04/2021 2 predniSONE (DELTASONE) 5 mg tabletIndications: Adrenal insufficiency (HCC) TAKE 1 TABLET BY MOUTH EVERY DAY 30 tablet 5 01/31/2021 2 sertraline (ZOLOFT) 25 mg tablet 10/18/2020 2 simethicone (MYLICON) 80 mg chewable tabletIndications: Flatulence Take 1 tablet (80 mg total) by mouth 4 (four) times a day as needed for flatulence 30 tablet 01/03/2021 3 documented as of this encounter Discharge Disposition Disposition Code Departure Means Destination Discharge to home or self care documented in this encounter Nursing Notes * Rianna Chaparro RN - 03/07/2021 11:59 AM CST Ambulatory pt drove herself to [facility] infusion clinic. Upon arrival, pt was brought back to infusionroom where VS were obtained. Infusion process was explained to patient who stated understanding. IVwas obtained with no complications. Here with symptoms of MARTINEZ, non productive cough, and nausea, vom iting, diarrhea. Once MAB infusion was completed, patient was monitored for 1 hr for adverse reactions. Pt toleratedinfusion well with no complaints. Education on infusion was given along with packet of information.Pt stated understanding and all questions answered. Once IV was removed, pt was escorted to parkinglot where she was visualized getting into car. OPONICS GROWER documented in this encounter Plan of Treatment Not on file documented as of this encounter Visit Diagnoses Diagnosis COVID-19- Primary documented in this encounter Administered Medications Inactive Administered Medications - up to 3 most recent administrations Medication Order MAR Action Action Date Dose Rate Site sodium chloride 0.9% flush 10 mL 10 mL, intravenous, As needed, line care, Starting on Sun03/07/21 at 0931, Flush pre and post IV catheter use.Indications:COVID-19 Given 03/07/2021 9:50 AM HYDROPONICS GROWER 10 mL sodium chloride 0.9% infusion 30 mL 30 mL, intravenous, Once, On Sun03/07/21 at 1015, For 1 doseIndications:COVID-19 New Bag 03/07/2021 9:50 AM HYDROPONICS GROWER 30 mL sotrovimab 500 mg/108 mL in 0.9% sodium chloride (premix) (EUA) 500 mg 500 mg, intravenous, Administer over 30 Minutes, Once, On Sun03/07/21 at 1015, For 1 dose, Do not shake. Use a polyvinyl chloride (PVC) or polyolefin (PO) infusion set containing a 0.2 micron polyethersulfone (PES) filter. If refrigerated, allow to equilibrate to room temperature for 15 minutes prior to administration. Clinically monitor patients during infusion and observe patients for at least 1 hour after infusion is complete., Does the patient have a laboratory-confirmed SARS-CoV-2 test (rapid antigen or PCR)? Yes, Date of test: 03/05/2021, Is the patient able to receive sotrovimab within 10 days of symptom onset? Yes, Date of symptom onset: 03/05/2021, Does the patient have mild to moderate COVID-19? Yes, Patient has at least one of the following high-risk conditions (select all that apply): Immunosuppressive disease or treatment, Patient meets at least one of the following restriction criteria (restricted during times of limited supply) (select all that apply): Moderately to severely immune compromised regardless of vaccination status, Is the patient or breasfeeding? Yes, I have directly provided appropriate counseling or arranged for counseling from Maternal Medicine ([phone]) on the use of this drug: Yes, I attest the patient meets all EUA requirements, the Fact Sheet has been communicated, and the patient/caregiver has been/will be provided a copy: Yes, By signing this order, I authorize that another COVID-19 monoclonal antibody regimen may be substituted for this specific order based on product availability and circulating variants, as recommended by the CDC and the authorized State agency. AcknowledgeIndications:COVID-19 Given 03/07/2021 10:29 AM HYDROPONICS GROWER 500 mg documented in this encounter Orders Medications Ordered That Omer ht Not Have Been Administered Count Last Ordered Date First Ordered Date albuterol HFA (PROVENTIL HFA ,VENTOLIN HFA,PROAIR HFA) 90 mcg/actuation inhaler 2 puff 1 03/07/2021 diphenhydrAMINE (BENADRYL) capsule 50 mg 1 03/07/2021 diphenhydrAMINE (BENADRYL) injection 25 mg 1 03/07/2021 diphenhydrAMINE (BENADRYL) injection 50 mg 1 03/07/2021 diphenhydrAMINE (BENADRYL) tab/cap 25 mg 1 03/07/2021 EPINEPHrine injection 0.3 mg 1 03/07/2021 methylPREDNISolone sodium martin ccinate (SOLU-medrol) preservative free injection 125 mg 1 03/07/2021 ondansetron (ZOFRAN) injection 4 mg 1 03/07 ondansetron (ZOFRAN) tablet 4 mg 1 03/07/19 ondansetron ODT (ZOFRAN-ODT) disintegrating tablet 4 mg 1 03/07/2021 sodium chloride 0.9% bolus 500 mL 1 022 Nursing Count Last Ordered Date First Orde red Date MONITOR PATIENT FOR HYPERSEN SITIVITY REACTIONS 1 03/07/2021 NURSING COMMUNICATION 4 03/07/2021 ONCBCN PROVIDER COMMUNICATION 1 1 2 ONCBCN PROVIDER COMMUNICATION 10 1 03/07/19 22 ONCBCN PROVIDER COMMUNICATION 2 1 2 VITAL SIGNS 2 03/07/2021 Appointment Requests Count Last Ordered Date Fi rst Ordered Date INFUSION APPT REQUEST 150 MIN 1 03/07/2021 documented in this encounter Care Teams Guyline Operator Relationship Specialty [place] [address] [address] PCP - General 07/04/19 [place] [address] [facility] [address] [place] [address] 11/16/18 Ernie Shaw MD [address] [place] [address] Top Polisher Obstetrics and Gynecology 06/10/20 documented as of this encounter
--- OUTSIDE RECORDS SUMMARY | 2024-02-24 20:01 | XMS_ITS | Encounter Summary ---
Author Organization [facility] Facility Care Team Providers Care Coach Professional Athletes Name Role Phone Huseyin Dangelo MD Unavailable [phone] Brian Mon MD Primary Care Provider + Ernie Shaw MD Unavailable [phone] Encounter Details Date Type Department Care Team (Latest Contact Info) Description 01/12/2021 Encounter Social History Tobacco Use Types Packs/Day Years [...] have a drink containing alc ohol? Never 01/09/2021 Average Number of Drinks Not on file 021 Q3: How often do you have si x or more drinks on one occasion? Never 01/09/2021 Overall Financial Resource Strain (CARDIA) Ans[place] r [...] a senior living (including now)? No 01/01/2021 [place] Depression Scale Answer Date Recorded [place] Depression Scale Total 11 01/11/2021 The thought [...] as of this encounter Miscellaneous Notes * Note - Iris Rodriguez RN - 01/12/2021 4:32 PM ADAPTIVE PHYSICAL EDUCATION SPECIALIST This note was copied from a baby's chart. Called to bedside, mom c/o breast pain, breast full- mom pumped 2.5 hours prior- mom states she feels like she is pumping all the time, she feels like she has sharp pains within breast just prior to pumping, she states the pains go away once she starts pumping-breast warm, small red area noted on left inner breast - was just laying on moms chest- no clogged ducts noted, breast soft after pumping. No fever, chills noted. No new meds. Discussed with mom if sx not improved to speak with OB, mom stated she was at [facility] the day before with no changes - no meds given or tx. Reviewed pumping frequency and duration- Mom states she has been pumping every 1.5-2 hours for 10 min each pump- getting3-5 oz per pumping- discussed pump settings- sx to start low and increase to comfort. Mom verbalized understanding and will try recommendations. Mom to reach out to LC's with any further questions concerns. TIVE PHYSICAL EDUCATION SPECIALIST documented in this encounter Plan of Treatment Not on file documented as of this encounter Visit Diagnoses Not on filedocumented in this encounter Care Teams Coach Professional Athletes Relationship Specialty [place] [address] [address] [place] [address] PCP - General 07/04/19 [place] [address] [address] [facility] [place] [address] 11/16/18 Ernie Shaw MD [address] [place] [address] [address] [place] [address] Senior Consumer Insights Consultant Obstetrics and Gynecology 06/10/20 documented as of this encounter
--- OUTSIDE RECORDS SUMMARY | 2024-02-24 20:01 | XMS_ITS | Encounter Summary ---
Author Organization [facility] Healthcare Address [address] [place] [address] Care Team Providers Care Sewing Machine Operator Plastic Zipper Name Role Phone Huseyin Dangelo MD Unavailable [phone] Brian Mon MD Primary Care Provider + Ernie Shaw MD Unavailable [phone] Encounter Details Date Type Department Care Team (Late st Contact Info) Description 01/14/2021 Telephone [facility] [address] [place] [address] Neisha Arevalo MD [address] [address] Social History Tobacco Use Types Packs/Day [...] and Family Not on file 01/01/2021 Attends [employer] Services Not on file 01/01 Active Member [...] in a intermediate (including now)? No 01/01/2021 [place] Depression Scale Answer Date Recorded [place] Depression Scale Total 11 01/11/2021 The thought [...] encounter Miscellaneous Notes * Telephone Encounter - Neisha Arevalo MD - 01/14/2021 1:48 PM SILK FINISHER Telephone Encounter 01/14/2021 Called patient to discuss presentation to the [facility] without being evaluated. She noted in her MyChartmessages that she had some concerns about breast engorgement and her breasts feeling hot and red. She reports the nurse in the [facility] told her based on her exam that she likely was engorged and needed to pump/let down more, which is why she left. She said she would try to do that and come back if thing s didn't get better. I reviewed the photos Carito sent in with her and verified that both breasts were symmetrically engorged, red, and hot and that there were no areas of particular pain or abrasions/cuts. She notes that she is pumping breastmilk every 2.5 hours and producing 5 oz each time. Has been talking with a remediation consultant who she feels is helping her. I offered to refer to another remediation consultant if she desired; she does not feel that she needs that now. We discussed that she is afebrile basedon her temperatures yesterday and today, and that her presentation based on the photos is indeed most consistent with engorged bilateral breasts. I recommend continued pumping every 2-3 hours. If shewould like to suppress breastmilk moving forward, we can discuss methods for that as well. Carito also has a question about the lump on the right side of her incision. She denies it being very painful, just uncomfortable. Otherwise she is happy with her incision and notes she has been showing it to people who say it looks perfect . We discussed that the location of the lump is likely most consistent with the knots from the fascial closure, and that these suture dissolve with time. Iadvised against baths or water immersion for at minimum 4-6 weeks for wound closure. We finally discussed recommendations for spacing. Ms. Madison notes that she would like tohave another baby NAHOMY. She and I spoke about the recommendations for spacing of at [id number] months between delivery of this child and with the next. We discussed this importance in the context of her surgical recovery and outcomes of a future , including decreasing the rates of . I advised pelvic rest for 6 weeks. She expressed understanding. I advised Ms. Madison to call us at our clinic number or represent to [facility] if she has any other concerns or questions. I confirmed she has an appointment 01/28. Neisha Arevalo MD Maternal Medicine Fellow, PGY-5 FINISHER FINISHER documented in this encounter Plan of Treatment Not on file documented as of this encounter Visit Diagnoses Not on filedocumented in this encounter Care Teams Sewing Machine Operator Plastic Zipper Relationship Specialty [place] [address] [address] [facility] [place] [address] PCP - General 07/04/19 [place] [address] [address] [facility] [place] [address] 11/16/18 Ernie Shaw MD [address] [place] [address] Sprinkler Inspector Obstetrics and Gynecology 06/10/20 documented as of this encounter
--- OUTSIDE RECORDS SUMMARY | 2024-02-24 20:01 | XMS_ITS | Encounter Summary ---
Author Organization [facility] Address [address] [place] [address] Phone Care Team Providers Care Snuff Grinder Name Role Phone Huseyin Dangelo MD Unavailable [phone] Brian Mon MD Primary Care Provider + Ernie Shaw MD Unavailable [phone] Encounter Details Date Type Department Care Team (Late st Contact Info) Description 01/13/2021 2:20 PM PARKING LOT SUPERVISOR Lab [facility] Endocrinology Metabolism and Lipid [address] [facility] [address] [place] [address] [place] [address] Systemic lupus erythematosus, unspecified SLE type, unspecified [...] and Family Not on file 01/01/2021 Attends Synagogue Services Not on file 01/01 Active Member [...] in a m[facility]p (including now)? No 01/01/2021 [place] Depression Scale [...] Procedure Name Priority Date/Time Associated Diagnosis Comments COMPREHENSIVE METABOLIC PANEL Routine 01/13/2021 2:19 PM PARKING LOT SUPERVISOR Systemic lupus erythematosus, unspecified SLE type, unspecified organ involvement status (HCC) documented in this encounter Results * Comprehensive metabolic panel (01/13/2021 2:19 PM PARKING LOT SUPERVISOR) Total Protein 6.6 6.1 - 8.4 g/dL [facility] Albumin 4.1 3.5 - 5.2 g/dL [facility] Calcium 9.2 8.6 - 10.3 mg/dL [facility] BUN 19 7 - 23 mg/dL [facility] Total Bilirubin 0.30 0.20 - 1.40 mg/dL [facility] Alk Phos, Total 75 35 - 129 IU/L [facility] AST (SGOT) 14 11 - 47 IU/L [facility] ALT (SGPT) 12 6 - 53 IU/L [facility] Creatinine 0.69 0.60 - 1.10 mg/dL [facility] Sodium 142 135 - 145 mmol/L [facility] Potassium 3.9 3.3 - 5.1 mmol/L [facility] Chloride 104 95 - 107 mmol/L [facility] CO2 Content 26 21 - 29 mmol/L [facility] Glucose 89 64 - 99 mg/dL [facility] Comment: NONFASTING GLUCOSE RANGE = 64-199 mg/dL FASTING GLUCOSE 64 - 99 = NORMAL FASTING GLUCOSE 100 - 125 = IMPAIRED FASTING GLUCOSE FASTING GLUCOSE >=126 = PROVISIONAL DIAGNOSIS OF DIABETES eGFR >90.0 >60.0 mL/min/1.7 3 m2 [facility] Comment:eGFR updated to new CKD-EPI (2020) calculation without race on 01/10/21. Blood specimen (specimen) 01/13/2021 2:19 PM PARKING LOT SUPERVISOR 01/13/2021 3:17 PM PARKING LOT SUPERVISOR Carolina Delarosa MD LAB BLOOD ORDERABLES Final Result [facility] documented in this encounter Visit Diagnoses Diagnosis Systemic lupus erythematosus, unspecified SLE type, unspecified organ involvement status (HCC) documented in this encounter Care Teams Snuff Grinder Relationship Specialty [place] [address] [address] [place] [address] PCP - General 07/04/19 [place] [address] [address] [place] [address] 11/16/18 Ernie Shaw MD [address] [place] [address] [address] [place] [address] Senior Project Manager Engineering Obstetrics and Gynecology 06/10/20 documented as of this encounter
--- OUTSIDE RECORDS SUMMARY | 2024-02-24 20:01 | XMS_ITS | Encounter Summary ---
Author Organization [facility] Address [address] [place] [address] Phone Care Team Providers Care Builder Beam Name Role Phone Huseyin Dangelo MD Unavailable [phone] Brian Mno MD Primary Care Provider + Ernie Shaw MD Unavailable [phone] Encounter Details Date Type Department Care Team (Late st Contact Info) Description 01/13/2021 1:30 PM ANODE BUILDER Office Visit [facility] Rheumatology [facility] Medicine 5th [place] [address] [place] [address] Systemic lupus erythematosus, unspecified SLE [...] a long term (including now)? No 01/01/2021 Hertford Depression Scale Answer Date Recorded Hertford Depression Scale Total 11 01/11/2021 The thought [...] Sign Reading Time Taken Comments Blood Pressure 112/69 01/13/2021 12:54 PM ANODE BUILDER Pulse 90 01/13/2021 12:54 PM ANODE BUILDER Temperature 36.5 ??C (97.7 ??F) 01/13/2021 12:[address] Respiratory Rate - - Oxygen Saturation - - Inhaled Oxygen Concentration - - Weight 79.6 kg (175 lb 6.4 oz) 01/13/2021 12:54 PM ANODE BUILDER Height 158.8 cm (5' 2.5 ) 01/13/2021 12:54 PM CS T Body Mass Index 31.57 01/13/2021 12:54 PM ANODE BUILDER documented in this encounter Progress Notes * Robert Bustamante MD - 01/13/2021 1:30 PM CST [facility] Division of Rheumatology SUBJECTIVE: Chief Complaint: back pain. Rheumatological disease: SLE Rheumatological medication: Hydroxychloroquine 200 mg daily (self tapered from 400 mg), prednisone 7.5 mg daily Last clinic visit: 11/2020 History of Present Illness: A pleasant 30 y.o. female with PMHx significant for SLE is here for follow up. Interval History: She underwent a that was complicated by blood loss of 2.5 L according to her, the baby iscurrently in the NICU. She underwent spinal anesthesia for the procedure. Three days after the spinal anesthesia, she developed dull constant pain in her occipital area that extends into her upper thoracic area, it is 4/10 at best, 10/10 at worst especially at night, associated with occipital headache that is squeezing in nature. She also noticed fatigue, she thinks she had a malar rash that improved. She has a follow [facility] to assess for the post delivery back pain. She denies fever, chills, other rashes, photosensitivity, morning pain or stiffness involving the joints, oral or nasal ulcers, alopecia, recent Raynaud's episodes, nausea, vomiting, weakness, or paresthesias. Disease History: The patient was diagnosed with SLE in 2018 when she flared after a 2nd trimester loss. She was previously healthy and reported no symptoms through her . She had for vaginal bleeding and was found to have placental separation and lost the and 6 and half months. She 1st developed symptoms of joint pain about 2 months after this episode when she found that she could not get up out of the bed. She had 1 other early first-trimester . She has a positive BARAK 1:1280 centromere and homogeneous positive. She also has a positive double-stranded DNA, ELEVATOR PILOT antibody and a low C4 and C3 level previously. She had borderline elevated inflammatory markers. Given her history of she has been worked up for APS and has borderline cardiolipin antibodies which were neg on repeat but other labs have been stable She has Hx of polyarticular joint pain and swelling with morning stiffness. She had recurrent oral ulcers. ?? Medication History: She did try azathioprine for 2 days but then developed hives with this and stop. Her last Benlysta was April 2020. In terms of her medications she has been chronically on steroids for the last 2 years. ROS: All systems negative except HPI. Past medical history is significant for recurrent genital herpes and lupus Family history she has an uncle with a diagnosis of ankylosing spondylitis Personal history occasional marijuana use PMHx: Past Medical History: Diagnosis Date ??? Anemia ??? Anxiety ??? Anxiety disorder currently on no meds ??? Asthma never hospitalized/intubated. albuterol as needed ??? Chronic diarrhea ??? Chronic kidney disease lupus nephritis ??? Depression ??? Headache, tension-type ??? Lupus (CMS/HCC) ([facility]) ??? PONV (postoperative nausea and vomiting) ??? 07/13/2015 ??? Rheumatoid arthritis (HCC) ??? Seizures (CMS/HCC) ([facility]) reaction to a medication PSHx: Past Surgical History: Procedure Laterality Date ??? APPENDECTOMY ??? COLONOSCOPY 07/29/2019 1st ??? DILATION AND CURETTAGE OF UTERUS 09/2017 ??? ESOPHAGOGASTRODUODENOSCOPY 07/2019 ??? HAND SURGERY ??? WRIST SURGERY Right 12/09/2018 rt wrist median nerve repair, allograft nerve wrap application Social Hx: reports that she quit smoking about 2 years ago. She has never used smokeless tobacco. She reports current alcohol use. She reports previous drug use. Drug: Marijuana. FHx: Family History Problem Relation Age of Onset ??? Gout Mother ??? Diabetes Mother ??? Hypertension Mother ??? Heart disease Father ??? Stroke Father ??? Colon cancer Other MEDICATIONS: Current Outpatient Medications Medication Sig Dispense Refill ??? acetaminophen 500 mg capsule Take 2 capsules (1,000 mg total) by mouth every 6 (six) hours 30 tablet 0 ? ? al & mag hydroxide with rnshtgleqvi-kiljtzsakkffala-insczozox (MAGIC MOUTHWASH) suspension 1-1-1 Swish and swallow 10 mL every 4 (four) hours as needed (oral ulcers) 300 mL 0 ??? cyclobenzaprine (FLEXERIL) 5 mg tablet Take 1 tablet (5 mg total) by mouth 3 (three) times a day as needed for muscle spasms 30 tablet 0 ??? hydrOXYchloroQUINE (PLAQUENIL) 200 mg tablet Take 2 tablets (400 mg total) by mouth daily 60 tablet 5 ??? ibuprofen (ADVIL,MOTRIN) 600 mg tablet Take 1 tablet (600 mg total) by mouth every 6 (six) hours 60 tablet 0 ??? pantoprazole DR (PROTONIX) 40 mg EC tablet Take 1 tablet (40 mg total) by mouth daily 30 ??? predniSONE (DELTASONE) 2.5 mg tablet Take 3 tablets (7.5 mg) by mouth daily 30 tablet 2 ??? sertraline (ZOLOFT) 25 mg tablet ??? simethicone (MYLICON) 80 mg chewable tablet Take 1 tablet (80 mg total) by mouth 4 (four) timesa day as needed for flatulence 30 tablet 0 ??? PNV with oeztpae-laqk-HA 27 mg iron- 1 mg tablet Take 1 tablet by mouth daily (Patient not taking: Reported on 01/11/2021) 30 tablet 1 ALLERGIES: Allergies Allergen Reactions ??? Macrobid [Nitrofurantoin [...] bactrim because of lupus ??? Venlafaxine Itching OBJECTIVE: Physical Examination: Vitals: BP 112/69 Pulse 90 Temp 36.5 ??C (97.7 ??F) Ht 158.8 cm (5' 2.5 ) Wt 79.6 kg (175 lb 6.4 oz) LMP (LMP Unknown) Comment: LMP end of Mar 2020 BMI 31.57 kg/m?? General: Alert, Cooperative, No distress Skin: (-) Rash , (-) Nodules MSK Joints including shoulders, elbows, wrists, hands, knees, ankles, and feet have full range of motion with no tenderness to palpation, increased warmth, or synovitis. HEENT (-) Scleral injection, (-) Oral ulcers, intact EOM Lungs: Clear to auscultation bilaterally Heart: Regular rate and rhythm, S1, S2 normal Abdomen: Soft , Non-tender, RLQ mass which feels like a hernia Investigations: Lab Results Component Value Date WBC 9.5 01/09/2021 HGB 10.9 (L) 01/09/2021 HCT 34.0 (L) 01/09/2021 MCV 92.9 01/09/2021 LABPLAT 361 01/09/2021 Lab Results Component Value Date AST 22 01/09/2021 ALT 18 01/09/2021 CREATININE 0.59 (L) 01/09/2021 Inflammatory markers: Lab Results Component Value Date SEDRATE 35 (H) 12/13/2020 CRP 7.9 12/13/2020 C3 150.0 12/13/2020 C4 21.1 12/13/2020 ASSESSMENT/PLAN: SLE She gave with C section in early 12/2020. At this point she is on hydroxychloroquine 200 mg a day; she self reduced as she was having GI symptoms on 400 mg a day, and on prednisone 7.5 mg a day (has adrenal insuffic) Her symptoms are stable today with no flare features. Last SLE labs from 11/2020 were stable. -Will continue the HCQ 200 mg daily and prednisone 7.5 mg daily. We will order SLE labs from today and update her. ?? -Return to clinic: 2 months Problem List Items Addressed This Visit None Visit Diagnoses Systemic lupus erythematosus, unspecified SLE type, unspecified organ involvement status (HCC) Robert Bustamante M.D Rheumatology Fellow Cosigned by Carolina Delarosa MD at 01/13/2021 2:53 PM ANODE BUILDER E BUILDER E BUILDER E BUILDER Associated attestation - Carolina Delarosa MD - 01/13/2021 2:53 PM ANODE BUILDER I have seen and examined the patient. I agree with the findings and plan of care as documented in the resident/fellow's note. My total encounter time on 01/13/2021 was 20 minutes which was spent in the activities documented in the note. This includes time spent prior to the visit and after the visit in direct care of the patient. This time does not include time spent in any separately reportable services. documented in this encounter Plan of Treatment Not on file documented as of this encounter Procedures Procedure Name Priority Date/Time Associated Diagnosis Comments POCT URINALYSIS DIPSTICK Routine 01/13/2021 1:39 PM ANODE BUILDER Systemic lupus erythematosus, unspecified SLE type, unspecified organ involvement status (HCC) documented in this encounter Results * C3 complement (01/13/2021 2:19 PM ANODE BUILDER) Pathologist [facility] Complement C3 143.0 90.0 - 180.0 mg/dL [facility] Blood 01/13/2021 2:19 PM ANODE BUILDER 01/13/2021 8:30 PM ANODE BUILDER Carolina Delarosa MD LAB BLOOD ORDERABLES Final Result [facility] Department [place] [address] * (ABNORMAL) CRP (acute phase) (01/13/2021 2:19 PM ANODE BUILDER) Pathologist [facility] CRP 13.6(H) <=10.0 mg/L [facility] Blood 01/13/2021 2:19 PM ANODE BUILDER 01/13/2021 8:30 PM ANODE BUILDER Carolina Delarosa MD LAB BLOOD ORDERABLES Final Result Performing Organization Address City/[facility] Co de Phone Number [facility] [place] [address] * Anti-double stranded DNA antibodies (01/13/2021 2:19 PM ANODE BUILDER) [facility] dsDNA Ab 4.0 <=4.0 IUnits/mL [facility] Comment: Interpretive Data Negative: < or = 4 IUnits/mL Indeterminate: 5 - 9 IUnits/mL Positive: > or = 10 IUnits/mL Current interpretive data was last revised on 2016. Blood 01/13/2021 2:1 9 PM ANODE BUILDER 01/13/2021 8:30 PM ANODE BUILDER Carolina Delarosa MD LAB BLOOD ORDERABLES Final Result Performing Organization Address [facility] Co de Phone Number [facility] Department [place] [address] * Erythrocyte sedimentation rate (01/13/2021 2:19 PM ANODE BUILDER) [facility] Erythrocyte sedimentation rate 14 1 - 20 mm/hr [facility] Blood 01/13/2021 2:19 PM ANODE BUILDER 01/13/2021 8:30 PM ANODE BUILDER Carolina Delarosa MD LAB BLOOD ORDERABLES Final Result Performing Organization Address [facility] Co de Phone Number [facility] Department [place] [address] * (ABNORMAL) Urinalysis reflex to microscopic and culture Urine (01/13/2021 2:19 PM ANODE BUILDER) Color, ur Yellow Yellow [facility] Clarity, ur Clear Clear [facility] Specific gravity, ur 1.031(H) 1.003 - 1.030 [facility] pH, urine 6 [facility] Protein, ur ql 1+(A) Negative [facility] Glucose, ur ql Negative Negative [facility] Ketones, ur Negative Negative [facility] Bilirubin, ur Negative Negative [facility] Blood, ur 2+(A) Negative [facility] Urobilinogen, ur <2.0 <2.0 mg/dL [facility] Nitrite, ur Negative Negative [facility] Leukocyte esterase, ur Negative Negative [facility] UA reflex comment Reflex to microscopic UA will be performed. [facility] Urine 01/13/2021 2:19 PM ANODE BUILDER 01/13/2021 8:30 PM ANODE BUILDER Narrative [facility] - 01/13/2021 9:08 PM ANODE BUILDER ?? Urine pH is affected by diet, medications, systemic acid-base disturbances, and renal tubular function. ??pH may affect urinary stone formation. ??For example, urine pH below 6.0 may help reduce the tendency for calcium phosphate stones and pH greater than 6.0 may reduce the tendency for uric acid stone formation. Source: [facility] [employer]. Last revised 03-08-2017 Carolina Delarosa MD LAB MICROBIOLOGY - GENERAL ORDERABLES Final Result Performing Organization Address City/[facility] Co de Phone Number [facility] [employer] [place] [address] * C4 complement (01/13/2021 2:19 PM ANODE BUILDER) Pathologist [facility] Complement C4 26.7 10.0 - 40.0 mg/dL [facility] Blood 01/13/2021 2:19 PM ANODE BUILDER 01/13/2021 8:30 PM ANODE BUILDER Carolina Delarosa MD LAB BLOOD ORDERABLES Final Result Performing Organization Address [facility] Co de Phone Number [facility] Department [place] [address] * Protein / creatinine ratio, urine, random (01/13/2021 2:19 PM ANODE BUILDER) Pathologist [facility] Protein, ur, quant 16.3 mg/dL [facility] Comment: Interpretive Data No reference range established. Current interpretive data was last revised 2018. Creatinine Ur 243.0 mg/dL [facility] Comment: Interpretive Data No reference range established. Current interpretive data was last revised 2018. Protein/creatinin e ratio 67.1 0.0 - 180.0 mg/g CR [facility] Urine 01/13/2021 2:19 PM ANODE BUILDER 01/13/2021 8:30 PM ANODE BUILDER us Carolina Delarosa MD LAB URINE ORDERABLES Final Result [facility] Department [place] [address] * Comprehensive metabolic panel (01/13/2021 2:19 PM ANODE BUILDER) Pathologist [facility] Total Protein 6.6 6.1 - 8.4 g/dL [...] DIABETES eGFR >90.0 >60.0 mL/min/1.7 3 m2 [facility] Comment:eGFR updated to new CKD-EPI (2020) calculation without race on 01/10/21. Blood specimen (specimen) 01/13/2021 2:19 PM ANODE BUILDER 01/13/2021 3:17 PM ANODE BUILDER us Carolina Delarosa MD LAB BLOOD ORDERABLES Final Result [facility] * (ABNORMAL) POCT urinalysis dipstick (01/13/2021 1:39 PM ANODE BUILDER) Glucose, ur, POC Negative Negative mg/dL Bilirubin, ur, POC Negative Negative, Small, Moderate, Large Ketones, ur, POC Negative Negative Specific [place], POC Comment:>=1.030 Blood, ur, POC Large(A) Negative pH, ur, POC 5.0 5.0 - 8.0 Protein, ur, POC Trace(A) Negative Urobilinogen, urine, POC 0.2 0.2 - 1.0 mg/dL Nitrite, ur, POC Positive(A) Negative Leukocytes, ur, POC Negative Negative Lot Number [id number] Urine 01/13/2021 1:39 PM ANODE BUILDER us Nolvia Ibarra MD POINT OF CARE TEST ORDERABL ES Final Result documented in this encounter Visit Diagnoses Diagnosis Systemic lupus erythematosus, unspecified SLE type, unspecified organ involvement status (HCC) Exposure to SARS-associated coronavirus Systemic lupus erythematosus, unspecified SLE type, unspecified organ involvement status (HCC) documented in this encounter Discontinued Medications Medication Sig Discontinue Reason Start Date End Da te vit no.[id number] (Classic ) 28 mg iron- 800 mcg tablet Take 1 tablet by mouth daily Therapy completed 01/13/2021 ramelteon (ROZEREM) 8 mg tabletIndications:Sleep -Onset Insomnia Take 1 tablet (8 mg total) by mouth nightly Therapy completed 01/03/2021 01/13/2021 oxyCODONE (ROXICODONE) 5 mg immediate release tabletIndications:Pain Take 1 tablet (5 mg total) by mouth every 4 (four) hours as needed for pain for up to 20 doses Therapy completed 01/03/2021 01/13/2021 lidocaine (LIDODERM) 5 % Place 2 patches on the skin daily Remove & discard patch within 12 hours or as directed by MD. Therapy completed 01/03/2021 01/13/2021 ferrous gluconate (ferrous gluconate) 324 mg (37.5 mg of elemental iron) tabletIndications:Iron deficiency Take 1 tablet (324 mg total) by mouth 3 (three) times a day Therapy completed 11/10/2020 01/13/2021 diphenhydrAMINE (BENADRYL) 25 mg capsule Take 1 tablet/capsule (25 mg total) by mouth nightly as needed for sleep Therapy completed 01/03/2021 01/13/2021 docusate sodium (COLACE) 100 mg capsuleIndications:cons tipation,Stool Softener Take 1 capsule (100 mg total) by mouth 2 (two) times a day Therapy completed 01/03/2021 01/13/2021 documented as of this encounter Care Teams Builder Beam Relationship Specialty [place] [address] [address] [facility] [place] [address] PCP - General 07/04/19 [place] [address] [address] [place] [address] 11/16/18 Ernie Shaw MD [address] [place] [address] [address] [place] [address] [employer] Obstetrics [facility] Gyne[facility] 06/10/20 documented as of this encounter
--- OUTSIDE RECORDS SUMMARY | 2024-02-24 20:01 | XMS_ITS | Encounter Summary ---
Author Organization [facility] Healthcare Address [address] [place] [address] Care Team Providers Care Biometry Teacher Name Role Phone Huseyin Dangelo MD Unavailable [phone] Brian Mon MD Primary Care Provider + Ernie Shaw MD Unavailable Encounter Details Date Type Department Care Team (Late st Contact Info) Description 01/13/2021 8:25 PM AUTOMATIC TOE LASTER Lab [place] [phone] Exposure to SARS-associated coronavirus; Systemic lupus erythematosus, unspecified SLE type, unspecified [...] and Family Not on file 01/01/2021 Attends [employer] Not on file 01/01 Active Member [...] in a jail (including now)? No 01/01/2021 Ashley Depression Scale Answer Date Recorded Ashley Depression Scale Total 11 01/11/2021 The thought [...] Diagnosis Comments ANTI-DOUBLE STRANDED DNA ANTIBODIES Routine 01/13/2021 2:19 PM AUTOMATIC TOE LASTER Systemic lupus erythematosus, unspecified SLE type, unspecified organ involvement status (HCC) C4 COMPLEMENT Routine 01/13/2021 2:19 PM AUTOMATIC TOE LASTER Systemic lupus erythematosus, unspecified SLE type, unspecified organ involvement status (HCC) URINALYSIS AND REFLEX TO MICROSCOPIC AND CULTURE Routine 01/13/2021 2:19 PM AUTOMATIC TOE LASTER Systemic lupus erythematosus, unspecified SLE type, unspecified organ involvement status (HCC) PROTEIN / CREATININE RATIO, URINE, RANDOM Routine 01/13/2021 2:19 PM AUTOMATIC TOE LASTER Systemic lupus erythematosus, unspecified SLE type, unspecified organ involvement status (HCC) URINALYSIS, MICROSCOPIC ONLY Routine 01/13/2021 2:19 PM AUTOMATIC TOE LASTER Systemic lupus erythematosus, unspecified SLE type, unspecified organ involvement status (HCC) ERYTHROCYTE SEDIMENTATION RATE Routine 01/13/2021 2:19 PM AUTOMATIC TOE LASTER Systemic lupus erythematosus, unspecified SLE type, unspecified organ involvement status (HCC) C3 COMPLEMENT Routine 01/13/2021 2:19 PM AUTOMATIC TOE LASTER Systemic lupus erythematosus, unspecified SLE type, unspecified organ involvement status (HCC) CRP (ACUTE PHASE) Routine 01/13/2021 2:1 9 PM AUTOMATIC TOE LASTER Systemic lupus erythematosus, unspecified SLE type, unspecified organ involvement status (HCC) documented in this encounter Results * (ABNORMAL) Urinalysis, microscopic only (01/13/2021 2:19 PM AUTOMATIC TOE LASTER) WBC, ur 0-5 0 - 5 /HPF [facility] RBC, ur 6-10(A) 0 - 2 /HPF [facility] Epithelial cells, squamous, ur 1-5 0 - 5 /HPF [facility] Mucous, ur Present(A) [facility] Culture Reflex Comment Reflex conditions for urine culture (WBC >10) not met. [facility] Urine 01/13/2021 2:19 PM AUTOMATIC TOE LASTER 01/13/2021 8:30 PM AUTOMATIC TOE LASTER Carolina Delarosa MD LAB URINE ORDERABLES Final Result Performing Organization Address [facility] de Phone Number [facility] [place] [address] * C3 complement (01/13/2021 2:19 PM AUTOMATIC TOE LASTER) Pathologist [facility] Complement C3 143.0 90.0 - 180.0 mg/dL [facility] Blood 01/13/2021 2:19 PM AUTOMATIC TOE LASTER 01/13/2021 8:30 PM AUTOMATIC TOE LASTER Carolina Delarosa MD LAB BLOOD ORDERABLES Final Result Performing Organization Address [facility] de Phone Number [facility] [place] [address] * (ABNORMAL) CRP (acute phase) (01/13/2021 2:19 PM AUTOMATIC TOE LASTER) [facility] CRP 13.6(H) <=10.0 mg/L [facility] Blood 01/13/2021 2:19 PM AUTOMATIC TOE LASTER 01/13/2021 8:30 PM AUTOMATIC TOE LASTER Result [facility] Carolina Delarosa MD LAB BLOOD ORDERABLES Final Result Performing Organization Address [facility] de Phone Number [facility] [place] [address] * Anti-double stranded DNA antibodies (01/13/2021 2:19 PM AUTOMATIC TOE LASTER) [facility] dsDNA Ab 4.0 <=4.0 IUnits/mL [facility] Comment: Interpretive Data Negative: < or = 4 IUnits/mL Indeterminate: 5 - 9 IUnits/mL Positive: > or = 10 IUnits/mL Current interpretive data was last revised on 2016. Blood 01/13/2021 2:19 PM AUTOMATIC TOE LASTER 01/13/2021 8:30 PM AUTOMATIC TOE LASTER Carolina Delarosa MD LAB BLOOD ORDERABLES Final Result Performing Organization Address [facility] Co de Phone Number [facility] [place] [address] * Erythrocyte sedimentation rate (01/13/2021 2:19 PM AUTOMATIC TOE LASTER) Erythrocyte sedimentation rate 14 1 - 20 mm/hr [facility] Blood 01/13/2021 2:19 PM AUTOMATIC TOE LASTER 01/13/2021 8:30 PM AUTOMATIC TOE LASTER Carolina Delarosa MD LAB BLOOD ORDERABLES Final Result Performing Organization Address [facility] de Phone Number [facility] Department [place] [address] * (ABNORMAL) Urinalysis reflex to microscopic and culture Urine (01/13/2021 2:19 PM AUTOMATIC TOE LASTER) Color, ur Yellow Yellow [facility] Clarity, ur Clear Clear [facility] Specific gravity, ur 1.031(H) 1.003 - 1.[address] [facility] pH, urine 6 [facility] Protein, ur ql 1+(A) Negative [facility] Glucose, ur ql Negative Negative [facility] Ketones, ur Negative Negative [facility] Bilirubin, ur Negative Negative [facility] Blood, ur 2+(A) Negative [facility] Urobilinogen, ur <2.0 <2.0 mg/dL [facility] Nitrite, ur Negative Negative [facility] Leukocyte esterase, ur Negative Negative [facility] UA reflex comment Reflex to microscopic UA will be performed. [facility] Urine 01/13/2021 2:19 PM AUTOMATIC TOE LASTER 01/13/2021 8:30 PM AUTOMATIC TOE LASTER Narrative [facility] - 01/13/2021 9:08 PM AUTOMATIC TOE LASTER ?? Urine pH is affected by diet, medications, systemic acid-base disturbances, and renal tubular function. ??pH may affect urinary stone formation. ??For example, urine pH below 6.0 may help reduce the tendency for calcium phosphate stones and pH greater than 6.0 may reduce the tendency for uric acid stone formation. Source: [facility] Need Fixed. Last revised 03-08-2017 Carolina Delarosa MD LAB MICROBIOLOGY - GENERAL ORDERABLES Final Result Performing Organization Address [facility] de Phone Number [facility] [place] [address] * C4 complement (01/13/2021 2:19 PM AUTOMATIC TOE LASTER) Pathologist [facility]plement C4 26.7 10.0 - 40.0 mg/dL [facility] Blood 01/13/2021 2:19 PM AUTOMATIC TOE LASTER 01/13/2021 8:30 PM AUTOMATIC TOE LASTER Result [facility] Carolina Delarosa MD LAB BLOOD ORDERABLES Final Result Performing Organization Address [facility] de Phone Number [facility] [place] [address] * Protein / creatinine ratio, urine, random (01/13/2021 2:19 PM AUTOMATIC TOE LASTER) Protein, ur, quant 16.3 mg/dL [facility] Comment: Interpretive Data No reference range established. Current interpretive data was last revised 2018. Creatinine Ur 243.0 mg/dL [facility] Comment: Interpretive Data No reference range established. Current interpretive data was last revised 2018. Protein/creatinin e ratio 67.1 0.0 - 180.0 mg/g CR [facility] Urine 01/13/2021 2:19 PM AUTOMATIC TOE LASTER 01/13/2021 8:30 PM AUTOMATIC TOE LASTER Carolina Delarosa MD LAB URINE ORDERABLES Final Result [facility] Department [place] [address] documented in this encounter Visit Diagnoses Diagnosis Exposure to SARS-associated coronavirus Systemic lupus erythematosus, unspecified SLE type, unspecified organ involvement status (HCC) documented in this encounter Care Teams Biometry Teacher Relationship Specialty [place] [address] [place] [address] PCP - General 07/04/19 [place] [address] [address] [place] [address] 11/16/18 Ernie Shaw MD [address] [facility] [address] [place] [address] Curing Press Maintainer Obstetrics and Gynecology 06/10/20 documented as of this encounter
--- OUTSIDE RECORDS SUMMARY | 2024-02-24 20:01 | XMS_ITS | Encounter Summary ---
Author Organization [facility] Address [address] [place] [address] Phone Care Team Providers Care Internal Salesperson Name Role Phone Huseyin Dangelo MD Unavailable [phone] Brian Mon MD Primary Care Provider + Ernie Shaw MD Unavailable [phone] Reason for Visit * Reason Onset Date Comments Breast Pain 01/13/2021 Encounter Details Date Type Department Care Team (Late st Contact Info) Description 01/13/2021 Telephone [facility] Maternal- Medicine [address] [facility] Out[facility] 7th Floor [address] [place] [address] Fariba Chin RN Breast Pain Social History Tobacco Use Types [...] and Family Not on file 01/01/2021 Attends [employer] Not on file 01/01 Active Member [...] in a mcfp (including now)? No 01/01/2021 Shelby Depression Scale Answer Date Recorded Shelby Depression Scale Total 11 01/11/2021 The thought [...] Telephone Encounter - Fariba Chin RN - 01/13/2021 1:23 PM CST Carito called stating that she is now having pain in her back, neck and head. She also states there is pain that seems to radiate from her hematoma to her sternum. She is concerned there is something wrong. I discussed her concerns with Dr. Genao and Dr. Bird and they recommend that she be evaluated at the [facility]. I called her back and let her know the recommendation and she verbalized understanding and will go to be evaluated. ER * Telephone Encounter - Fariba Chin RN - 01/13/2021 8:58 AM CST I discussed her concerns with Dr. Sorto. She recommended to add her to the schedule today to be seen. I have added her to the MD schedule at 2:30 and the patient is aware of the appt. ER * Telephone Encounter - Fariba Chin RN - 01/13/2021 8:43 AM CST Carito called this morning stating she has breast pain. She stated she went to the [facility] a couple of days ago and they assessed her breast and told her she didn't have an infection. She had an appt on Sunday and Dr. Sorto assessed her breasts and at that time they did not look infected either. She states she spoke with a hospice care sales consultant yesterday and she looked a her breasts and told her she might have a yeast infection in her breasts. Today she states her breasts are very painful bilaterally but the left one is worse. She has redness to both breasts and she will send a picture through my chart. She says they feel very full and rubbery . The pain was so bad last night that she vomited. She has no fever. She doesn't want to go back to the [facility] because she doesn't think they will do anything for her. I let her know I would wait for her picture and discuss this with a provider and get back to her. She verbalized understanding. ER documented in this encounter Plan of Treatment Not on file documented as of this encounter Visit Diagnoses Not on filedocumented in this encounter Care Teams Internal Salesperson Relationship Specialty [place] [address] [address] [place] [address] PCP - General 07/04/19 [place] [address] [address] [place] [address] 11/16/18 Ernie Shaw MD [address] [place] [address] [address] [place] [address] Ceramic Saw Tender Obstetrics and Gynecology 06/10/20 documented as of this encounter
--- OUTSIDE RECORDS SUMMARY | 2024-02-24 20:01 | XMS_ITS | Encounter Summary ---
Author Organization [facility] Healthcare Address [address] [place] [address] Care Team Providers Care Demonstrator Knitting Name Role Phone Huseyin Dangelo MD Unavailable [phone] Brian Mon MD Primary Care Provider + Ernie Shaw MD Unavailable [phone] Reason for Visit * Reason Onset Date Comments Breast Pain 01/12/2021 Chest Pain 01/12/2021 Encounter Details Date Type Department Care Team (Late st Contact Info) Description 01/12/2021 Nurse Triage [address] [phone] Margarita Olea MD [address] [facility] [address] [phone] [place], [place] [id number] Social History Tobacco Use Types Packs/Day Years [...] place to sleep or slept in a usp (including now)? No 01/01/2021 Perry Depression Scale [...] encounter Miscellaneous Notes * Telephone Encounter - Rodney Tawanapiedad Acosta RN - 01/12/2021 9:56 PM RIBBON WINDER Reason for Disposition ??? Major surgery in past month Answer Assessment - Initial Assessment Questions 1. LOCATION: Where does it hurt? Pt reports sternal pain, but also breast pain 2. RADIATION: Does the pain go anywhere else? (e.g., into neck, jaw, arms, back) Breast, back 3. ONSET: When did the chest pain begin? (Minutes, hours or days) Pain started around noon today 4. PATTERN Does the pain come and go, or has it been constant since it started? Does it get worse with exertion? Pt reports pain comes and goes 5. DURATION: How long does it last (e.g., seconds, minutes, hours) Lasts several minutes 6. SEVERITY: How bad is the pain? (e.g., Scale 1-10; mild, moderate, or severe) - MILD (1-3): doesn't interfere with normal activities - MODERATE (4-7): interferes with normal activities or awakens from sleep - SEVERE (8-10): excruciating pain, unable to do any normal activities 6/10 pain. Nausea associated with pain 7. CARDIAC RISK FACTORS: Do you have any history of heart problems or risk factors for heart disease? (e.g., angina, prior heart attack; diabetes, high blood pressure, high cholesterol, smoker, or strong family history of heart disease) Post-op; 8. PULMONARY RISK FACTORS: Do you have any history of lung disease? (e.g., blood clots in lung, asthma, emphysema, control pills) no 9. CAUSE: What do you think is causing the chest pain? Pt asks if incisional complications (s/p c/s 01/04/21) can cause clots in her lungs. Pt also reportsnipple soreness associated with breast feeding. 10. OTHER SYMPTOMS: Do you have any other symptoms? (e.g., dizziness, nausea, vomiting, sweating,fever, difficulty breathing, cough) Endorses intermittent nausea. Able to eat and drink today without difficulty. Denies other symptomsof concern. 11. : Is there any chance you are ? When was your last menstrual period? Delivered 01/04/21 Protocols used: CHEST [id number] ON WINDER documented in this encounter Plan of Treatment Not on file documented as of this encounter Visit Diagnoses Not on filedocumented in this encounter Care Teams Demonstrator Knitting Relationship Specialty [place] [address] [address] [facility] [address] [place] [address] PCP - General 07/04/19 [place] [address] [address] [facility] [address] [place] [address] 11/16/18 Ernie Shaw MD [address] [place] [address] [address] [place] [address] Elderly Caregiver Obstetrics and Gynecology 06/10/20 documented as of this encounter
--- OUTSIDE RECORDS SUMMARY | 2024-02-24 20:01 | XMS_ITS | Encounter Summary ---
Author Organization [facility] Healthcare Address [address] [place] [address] Care Team Providers Care Pin Chaser Name Role Phone Huseyin Dangelo MD Unavailable [phone] Brian Mon MD Primary Care Provider + Ernie Shaw MD Unavailable Reason for Visit * Reason Onset Date Comments Incoming Call 01/14/2021 post part um breast tenderness Encounter Details Date Type Department Care Team (Late st Contact Info) Description 01/14/2021 Nurse Triage [address] [phone] Karen Gibbs, RN Social History Tobacco Use Types Packs/Day [...] a senior care (including now)? No 01/01/2021 Quinton Depression Scale Answer Date Recorded Quinton Depression Scale Total 11 01/11/2021 The thought [...] Miscellaneous Notes * Telephone Encounter - Karen Gibbs, RN - 01/14/2021 5:39 AM CST Pt called to [facility] with c/o mastitis asking for antibiotics. Instructed pt of need to be evaluated prior to antibiotics. She plans to come to [facility] today. Reason for Disposition ??? [1] Breast looks infected (e.g., spreading redness) AND [2] no fever Protocols used: - BREAST PAIN AND [id number] ROUTER documented in this encounter Plan of Treatment Not on file documented as of this encounter Visit Diagnoses Not on filedocumented in this encounter Care Teams Pin Chaser Relationship Specialty [place] [address] [place] [address] PCP - General 07/04/19 [place] [address] [address] [facility] [place] [address] 11/16/18 Ernie Shaw MD [address] [place] [address] [address] [place] [address] Medical Field Representative Obstetrics and Gynecology 06/10/20 documented as of this encounter
--- OUTSIDE RECORDS SUMMARY | 2024-02-24 20:01 | XMS_ITS | Encounter Summary ---
Author Organization 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 [phone] [place] [address] Discharge Disposition: Discharge to home or self [...] in a mcc (including now)? No 01/01/2021 Comments No Sex and Gender Information Value [...] Sign Reading Time Taken Comments Blood Pressure 118/69 01/09/2021 1:01 PM NEURODIAGNOSTIC TECHNICIAN Pulse 88 01/09/2021 1:03 PM NEURODIAGNOSTIC TECHNICIAN Temperature 36.8 ??C (98.2 ??F) 01/09/2021 1:01 PM CS T Respiratory Rate 16 01/09/2021 1:01 PM NEURODIAGNOSTIC TECHNICIAN Oxygen Saturation 97% 01/09/2021 1:03 PM NEURODIAGNOSTIC TECHNICIAN Inhaled Oxygen Concentration - - Weight - - Height - - Body Mass Index - - documented in this encounter Discharge Diagnoses Diagnosis Encounter for routine follow-up - ENCOUNTER FOR ROUTINE FOLLOW-UP Unspecified abdominal pain - UNSPECIFIED ABDOMINAL PAIN Diarrhea, unspecified - DIARRHEA, UNSPECIFIED 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) - GLOMERULAR DISEASE IN SYSTEMIC LUPUS ERYTHEMATOSUS Chronic kidney disease, unspecified - CHRONIC KIDNEY DISEASE, UNSPECIFIED Generalized anxiety disorder - GENERALIZED ANXIETY DISORDER Other jail (current) drug therapy - OTHER CARE HOME (CURRENT) DRUG THERAPY Personal history of nicotine dependence - PERSONAL HISTORY OF NICOTINE DEPENDENCE correction (current) use of systemic steroids - ACCESS SPECIALIST (CURRENT) USE OF SYSTEMIC STEROIDS emt intermediate (current) use of non-steroidal anti-inflammatories (nsaid) - CARE HOME (CURRENT) USE OF NON-STEROIDAL ANTI-INFLAMMATORIES (NSAID) Allergy status to penicillin - ALLERGY STATUS TO PENICILLIN Allergy status to other antibiotic agents - ALLERGY STATUS TO OTHER ANTIBIOTIC AGENTS Allergy status to other drugs, medicaments and biological substances - ALLERGY STATUS TO OTHER DRUGS, MEDICAMENTS AND BIOLOGICAL SUBSTANCES History of uterine scar from previous surgery - HISTORY OF UTERINE SCAR FROM PREVIOUS SURGERY documented in this encounter Discharge Instructions * Discharge Instr - Activity* Gayla Blanca, RN - 01/09/2021 2:40 PM NEURODIAGNOSTIC TECHNICIAN Normal activity, please follow up with OB at your next follow up appointment. Continue with discharge instructions. ODIAGNOSTIC TECHNICIAN * Discharge Instr - Diet* Gayla Blanca, RN - 01/09/2021 2:47 PM NEURODIAGNOSTIC TECHNICIAN Regular diet, please drink 8-10 glasses a day. ODIAGNOSTIC TECHNICIAN documented in this encounter Medications at Time of Discharge ibuprofen (ADVIL,MOTRIN) 600 mg tabletIndications :Cramps Take 1 tablet (600 mg total) by mouth every 6 (six) hours 60 tablet 01/03/2021 1 acetaminophen 500 mg capsuleIndication s:Pain Take 2 capsules (1,000 mg total) by mouth every 6 (six) hours 30 tablet 01/03/2021 3 al & mag hydroxide with simethicone-diphe nhydramine-lidoca ine (MAGIC MOUTHWASH) suspension 1-1-1 Swish and swallow 10 mL every 4 (four) hours as needed (oral ulcers) 300 mL 12/09/2020 3 cyclobenzaprine (FLEXERIL) 5 mg tablet Take 1 tablet (5 mg total) by mouth 3 (three) times a day as needed for muscle spasms 30 tablet 01/03/2021 3 diphenhydrAMINE (BENADRYL) 25 mg capsule Take 1 tablet/capsule (25 mg total) by mouth nightly as needed for sleep 30 capsule 01/03/2021 1 docusate sodium (COLACE) 100 mg capsuleIndication s:constipation,St ool Softener Take 1 capsule (100 mg total) by mouth 2 (two) times a day 60 capsule 01/03/2021 1 ferrous gluconate (ferrous gluconate) 324 mg (37.5 mg of elemental iron) tabletIndications :Iron deficiency Take 1 tablet (324 mg total) by mouth 3 (three) times a day 90 tablet 2 11/10/2020 1 hydrOXYchloroQUIN E (PLAQUENIL) 200 mg tablet Take 2 tablets (400 mg total) by mouth daily 60 tablet 5 09/30/2020 2 lidocaine (LIDODERM) 5 % Place 2 patches on the skin daily Remove & discard patch within 12 hours or as directed by . 60 patch 01/03/2021 1 oxyCODONE (ROXICODONE) 5 mg immediate release tabletIndications :Pain Take 1 tablet (5 mg total) by mouth every 4 (four) hours as needed for pain for up to 20 doses 20 tablet 01/03/[address] (PROTONIX) 40 mg EC tabletIndications :Stress Ulcer Prophylaxis Take 1 tablet (40 mg total) by mouth daily 30 tablet 11 01/03/2021 3 PNV with nvryyue-xkpk-OC 27 mg iron- 1 mg tabletIndications :Vitamin Deficiency Prevention Take 1 tablet by mouth daily 30 tablet 1 01/04/2021 3 predniSONE (DELTASONE) 2.5 mg tablet Take 3 tablets (7.5 mg) by mouth daily 30 tablet 2 01/04/2021 2 vit no.[id number]-shacn (Classic ) 28 mg iron- 800 mcg tablet Take 1 tablet by mouth daily 1 ramelteon (ROZEREM) 8 mg tabletIndications :Sleep-Onset Insomnia Take 1 tablet (8 mg total) by mouth nightly 30 tablet 11 01/03/2021 1 sertraline (ZOLOFT) 25 mg tablet 10/18/2020 2 simethicone (MYLICON) 80 mg chewable tabletIndications :Flatulence Take 1 tablet (80 mg total) by mouth 4 (four) times a day as needed for flatulence 30 tablet 01/03/2021 3 documented as of this encounter Discharge Disposition Disposition Code Departure Means Destination Discharge to home or self care documented in this encounter H&P Notes * Margarita Olea MD - 01/09/2021 2:11 PM CST Images from the original note were not included. [facility] H&P Chief Complaint: diarrhea, incision pain Estimated Date of Delivery: 01/27/21 Provider: RENETTA HPI: Carito Madison is a 30 y.o. female POD#10 s/p pLTCS for complete previa c/b PPH. Her is complicated by complete previa, PPH, poly, marginal cord insertion, lupus, generalized anxiety disorder, GBS positive. Patient presents today with 1 day of worsening abdominal pain, and diarrhea. Reports some nausea and vomiting in the setting of pain, but has been tolerating PO. Reports not eating healthy, and has been eating a lot of cafeteria food. Denies fever at home, increased bleeding, abnormal discharge. Took APAP/IBU for pain, stopped taking oxy 1-2 days ago. Reports a few episodes of watery diarrhea at home. Voiding without issues. States mood stable, denies SI/HI. Reports abdominal pain, and feeling harder area near incision, denies bloating. Passing gas. Expresses concerns about endometriosis. Patient states, I feel something is wrong, like I'm infected. She states she feels like her stomach is like she has a stomach bug. Of note, patient has a chronic history of N/V, diarrhea and underwent work up with GI including EGD/Colonoscopy (07/2019) that were normal. She was recommended to take OTC meds for this. OB History Para Term AB Living 3 1 0 1 2 1 SAB IAB Ectopic Multiple Live Births 2 0 0 0 1 # Outcome Date GA Lbr Rojas/2nd Weight Sex Delivery Anes PTL Lv 3 12/30/20 36w0d 3.3 kg (7 lb 4.4 oz) F CS-LTranv Spinal N ALEXIA Complications: Placenta Previa, Post Hemorrhage Name: DEIRDRE MADISON Apgar1: 1 Apgar5: 3 2 2019 16w0d 1 2017 Past Medical History: Diagnosis Date ??? Anemia [...] nerve repair, allograft nerve wrap application Social History Socioeconomic History ??? Marital status: Tobacco Use ??? Smoking status: Former Smoker Quit date: 12/28/2018 Years since quittin.0 ??? Smokeless tobacco: Never Used Vaping Use ??? Vaping Use: Never used Substance and Sexual Activity ??? Alcohol use: Yes Comment: occasionally ??? Drug use: Not Currently Types: Marijuana Comment: 01/09 - denies ??? Sexual activity: Not Currently Partners: Male family history includes Colon cancer in an other family member; Diabetes in her mother; Gout in hermother; Heart disease in her father; Hypertension in her mother; Stroke in her father. Allergies Allergen Reactions ??? Macrobid [Nitrofurantoin Monohyd/M-Cryst] [...] bactrim because of lupus ??? Venlafaxine Itching HOME MEDICATIONS : acetaminophen 500 mg capsule al & mag hydroxide with yqyqjysugmf-rdjqjlujybkcwyn-oygayeozr (MAGIC MOUTHWASH) suspension 1-1-1 cyclobenzaprine (FLEXERIL) 5 mg tablet diphenhydrAMINE (BENADRYL) 25 mg capsule docusate sodium (COLACE) 100 mg capsule ferrous gluconate (ferrous gluconate) 324 mg (37.5 mg of elemental iron) tablet hydrOXYchloroQUINE (PLAQUENIL) 200 mg tablet ibuprofen (ADVIL,MOTRIN) 600 mg tablet lidocaine (LIDODERM) 5 % oxyCODONE (ROXICODONE) 5 mg immediate release tablet pantoprazole DR (PROTONIX) 40 mg EC tablet PNV with lqcksrc-smyu-WV 27 mg iron- 1 mg tablet predniSONE (DELTASONE) 2.5 mg tablet vit no.[id number]-uzoi-zfyrj (Classic ) 28 mg iron- 800 mcg tablet ramelteon (ROZEREM) 8 mg tablet sertraline (ZOLOFT) 25 mg tablet simethicone (MYLICON) 80 mg chewable tablet Review of Sys: Negative except per HPI Vitals: Temp: [36.8 ??C (98.2 ??F)] 36.8 ??C (98.2 ??F) Pulse: [83-88] 88 Resp: [16] 16 BP: (118)/(69) 118/69 Physical Exam: General: NAD, mood appropriate Cardiovascular: Regular rate and rhythm Pulmonary: Clear to ausculation bilaterally Abdomen: soft, mildly TTP in RUQ and lateral aspects of incision, incision c/d/i, no reboud or guarding, incision well healing, palpable area (~2cm each side) on the lateral aspects with mild firmness on the lateral aspects just superior to the incision c/w likely fascial sutures Extremities: Warm and well perfused BSUS: Uterus appropriate for PP Lateral aspect of incisions with small, heterogeneous reticular anechoic area c/f possible small hematoma, no fluid collection No FF in abdomen Labs: Lab Results Component Value Date ABORH A Positive 12/30/2020 IDCOOMB Negative 12/30/2020 [id number] Nonreactive 12/06/2020 LABRPR Nonreactive 12/30/2020 Recent Labs Lab Units 01/09/21 1433 01/05/21 1224 WBC K/cumm 9.5 11.0* HEMOGLOBIN g/dL 10.9* 9.5* HEMATOCRIT % 34.0* 29.4* PLATELETS K/cumm 361 250 NEUTROS ABS K/cumm 8.7* 9.7* SODIUM mmol/L 142 -- POTASSIUM PLASMA mmol/L 4.2 -- CHLORIDE mmol/L 106 -- CO2 mmol/L 23 -- ANIONGAP mmol/L 13 -- GLUCOSE mg/dL 92 -- BUN SERUM mg/dL 16 -- CREATININE mg/dL 0.59* -- CALCIUM mg/dL 9.1 -- ALBUMIN g/dL 3.8 -- ALK PHOS Units/L 73 -- ALT Units/L 18 -- AST Units/L 22 -- BILIRUBIN TOTAL mg/dL 0.3 -- Assessment and Plan Carito Madison is a 30 y.o. female POD#10 s/p pLTCS for complete previa c/b PPH. #Abdominal pain -P/w worsening abdominal pain -Abd exam benign, CBC/CMP wnl (WBC wnl now, LFTs wnl), VSS, afebrile, incision c/d/i -UA without infection -Suspect with appropriate postop pain, palpable area on lateral aspects of incision likely fascial sutures with possibly small hematoma. -Recommend massage, abdominal binder -Recommended ivon, but pt declines -Continue APAP/IBU/flexeril #Diarrhea -Offered pt COVID/RVP, declines -Suspect I/s/o cafeteria food, changes (decreased progesterone, off oxy), s/p constipation in , likely pt's chronic diarrhea -Encouraged hydration with electrolyte solns -No indication for stool studies or cdiff, but if persistent or worsening, to consider -Recommend OTC meds, BRAT diet Patient desired reassurance. Desired to leave prior to labs resulting. MD Olea to call pt with labs. Pt has follow up 01/11. Precautions reviewed. D/c home. Plan discussed with Dr. Olea, who was at bedside during US. Sandra Rosales MD 01/09/21 M Fellow Attestation I have seen and discussed Carito Madison with the resident, Dr. Rosales on 01/09/2021. I have evaluated the patient and reviewed the treatment plan and recommendations. I agree with the findings and the plan of care as documented in the resident???s note. POD10, presents with wound concerns. Superficially wellhealing. On BSUS, suspect there may be a small SQ hematoma on the right lateral aspect of the incision, which corresponds to the area of tenderness. This may also be where her sutures are tied down and we reviewed the time course for suture reabsorption. VSS, leukocytosis resolved. UAwith spec grav 1.030, encouraged PO hydration, low threshold to return to [facility] if symptoms of dehydra tion/worsening diarrhea. Previously had workup for diarrhea in 07/2019 without a specific diagnosis (may be attributed to her lupus?). Has outpatient visit on 01/11, plans on attending. Margarita Olea MD Maternal- Medicine Fellow Cosigned by Crystal Murray MD at 01/11/2021 2:03 PM NEURODIAGNOSTIC TECHNICIAN ODIAGNOSTIC TECHNICIAN ODIAGNOSTIC TECHNICIAN ODIAGNOSTIC TECHNICIAN ODIAGNOSTIC TECHNICIAN documented in this encounter Nursing Notes * Gayla Blanca, RN - 01/09/2021 2:47 PM CST Pt came into [facility] for incision check and with c/o abd. Pain. We sent lab work and urine. Pt expressed that she would like to go back to the NICU to be with her baby. Dr. Olea aware and will call her with her lab results. Pt verbalized an understanding and returned to the NICU to be with her family. ODIAGNOSTIC TECHNICIAN * Gayla Blanca, RN - 01/09/2021 2:36 PM CST Pt came with abd. Pain and wanted incision checked. Labs ordered, covid swab and urine ordered. Pt refused covid swab at this time. Dr. Mercy Rosales aware. ODIAGNOSTIC TECHNICIAN documented in this encounter Plan of Treatment Not on file documented as of this encounter Procedures Procedure Name Priority Date/Time Associated Diagnosis Comments URINALYSIS AND REFLEX TO MICROSCOPIC AND CULTURE Routine 01/09/2021 2:42 PM NEURODIAGNOSTIC TECHNICIAN URINALYSIS, MICROSCOPIC ONLY Routine 01/09/2021 2:42 PM NEURODIAGNOSTIC TECHNICIAN URINE CULTURE Routine 01/09/2021 2:42 PM NEURODIAGNOSTIC TECHNICIAN EGFR Routine 01/09/2021 2:33 PM NEURODIAGNOSTIC TECHNICIAN DIFFERENTIAL AUTO STAT 01/09/2021 2:3 3 PM NEURODIAGNOSTIC TECHNICIAN CBC WITH AUTO DIFFERENTIAL STAT 01/09/2021 2:33 PM NEURODIAGNOSTIC TECHNICIAN COMPREHENSIVE METABOLIC PANEL Routine 01/09/2021 2:33 PM NEURODIAGNOSTIC TECHNICIAN documented in this encounter Results * (ABNORMAL) Urinalysis, microscopic only (01/09/2021 2:42 PM NEURODIAGNOSTIC TECHNICIAN) WBC, ur 0-5 0 - 5 /HPF [facility] RBC, ur 6-10(A) 0 - 2 /HPF [facility] Epithelial cells, squamous, ur 1-5 0 - 5 /HPF [facility] Bacteria, ur Trace(A) [facility] Mucous, ur Present(A) [facility] Hyaline casts, ur 6-10 0 - 10 /LPF [facility] Urine, clean voided 01/09/2021 2:42 PM NEURODIAGNOSTIC TECHNICIAN 01/09/2021 2:55 PM NEURODIAGNOSTIC TECHNICIAN Margarita Olea MD LAB URINE ORDERABLES Final Result [facility] [place] [address] * (ABNORMAL) Urine culture Urine, clean voided (01/09/2021 2:42 PM NEURODIAGNOSTIC TECHNICIAN) Report Final Report: Less than 100,000 colonies/mL (clinically insignificant growth based on current clinical standards) Includes the following: Less than 100,000 colonies/mL Streptococcus agalactiae (Group B Streptococci) * ??* ??* ??* ??* ??* ??* ??* ??* ??* ??* ??* ??* ??* ??* ??* ??* ??* ??* ??* Resistance to penicillin in Group B Streptococcus has not been reported. ??Group B Streptococci are universally susceptible to beta-lactam antibiotics and vancomycin. Routine susceptibility testing is not performed. In penicillin allergic patients, please contact the laboratory at [phone] to request susceptibility testing * ??* ??* ??* ??* ??* ??* ??* ??* ??* ??* ??* ??* ??* ??* ??* ??* ??* ??* ??* This laboratory routinely screens urine cultures for any amount of Group B Streptococcus in reproductive age women. ??Recovery of this isolate may be significant in women, however, the recovery of this organism in small quantities in non- women represents contamination with periurethral geovanna. (.) [facility] Organism STREPTOCOCCUS AGALACTIAE (GROUP B STREPTOCOCCI) [facility] Organism (CLINICALLY INSIGNIFICANT GROWTH [facility] Urine, clean voided 01/09/2021 2:42 PM NEURODIAGNOSTIC TECHNICIAN 01/09/2021 2:57 PM NEURODIAGNOSTIC TECHNICIAN Narrative [facility] - 01/10/2021 4:51 PM NEURODIAGNOSTIC TECHNICIAN Indications for Culture:-> patient Testing performed by [facility] ([phone]) Margarita Olea MD LAB MICROBIOLOGY - GENERAL ORDERABLES Final Result [facility] [place] [address] * (ABNORMAL) Urinalysis reflex to microscopic and culture Urine, clean voided (01/09/2021 2:42 PM NEURODIAGNOSTIC TECHNICIAN) Color, ur Yellow Yellow [facility] Clarity, ur Clear Clear [facility] Specific gravity, ur 1.030 1.003 - 1.030 [facility] pH, urine 8 [facility] Protein, ur ql 1+(A) Negative [facility] Glucose, ur ql Negative Negative [facility] Ketones, ur Negative Negative [facility] Bilirubin, ur Negative Negative [facility] Blood, ur 2+(A) Negative [facility] Urobilinogen, ur <2.0 <2.0 mg/dL [facility] Nitrite, ur Negative Negative [facility] Leukocyte esterase, ur Negative Negative [facility] UA reflex comment Reflex to microscopic UA will be performed. [facility] Urine, clean voided 01/09/2021 2:42 PM NEURODIAGNOSTIC TECHNICIAN 01/09/2021 2:55 PM NEURODIAGNOSTIC TECHNICIAN Narrative [facility] - 01/09/2021 3:01 PM NEURODIAGNOSTIC TECHNICIAN ?? Urine pH is affected by diet, medications, systemic acid-base disturbances, and renal tubular function. ??pH may affect urinary stone formation. ??For example, urine pH below 6.0 may help reduce the tendency for calcium phosphate stones and pH greater than 6.0 may reduce the tendency for uric acid stone formation. Source: [employer]. Last revised 03-08-2017 us Margarita Olea MD LAB MICROBIOLOGY - GENERAL ORDERABLES Final Result [facility] [place] [address] * eGFR (01/09/2021 2:33 PM NEURODIAGNOSTIC TECHNICIAN) eGFR >90 90 - 130 mL/min/1.7 3 m2 [facility] Comment: Interpretive Data Reference Interval Normal ?>/= [...] interpretive data was last reviewed 2020 Blood 01/09/2021 2:33 PM NEURODIAGNOSTIC TECHNICIAN 01/09/2021 2:52 PM NEURODIAGNOSTIC TECHNICIAN us Margarita Olea MD LAB BLOOD ORDERABLES Final Result [facility] [place] [address] * (ABNORMAL) Differential, auto (01/09/2021 2:33 PM NEURODIAGNOSTIC TECHNICIAN) Neutrophil abs 8.7(H) 1.7 - 6.5 K/cumm [facility] gran abs 0.0 0.0 - 0.1 K/cumm [facility] Lymphocyte abs 0.5(L) 0.8 - 3.3 K/cumm [facility] Monocyte abs 0.3 0.2 - 0.8 K/cumm [facility] Eosinophil abs 0.0 0.0 - 0.5 K/cumm [facility] Basophil abs 0.0 0.0 - 0.1 K/cumm [facility] Neutrophil pct 91.1 % [facility] Comment: Interpretive Data Percent cell count reference ranges are not reported, since discordance with absolute values may lead to misinterpretation of CBC data. Current Interpretive Data was last revised on 2017. Imm gran pct 0.4 % [facility] Comment: Interpretive Data Percent cell count reference ranges are not reported, since discordance with absolute values may lead to misinterpretation of CBC data. Current Interpretive Data was last revised on 2017. Lymphocyte pct 5.3 % [facility] Comment: Interpretive Data Percent cell count reference ranges are not reported, since discordance with absolute values may lead to misinterpretation of CBC data. Current Interpretive Data was last revised on 2017. Monocyte pct 2.6 % [facility] Comment: Interpretive Data Percent cell count reference ranges are not reported, since discordance with absolute values may lead to misinterpretation of CBC data. Current Interpretive Data was last revised on 2017. Eosinophil pct 0.4 % [facility] Comment: Interpretive Data Percent cell count reference ranges are not reported, since discordance with absolute values may lead to misinterpretation of CBC data. Current Interpretive Data was last revised on 2017. Basophil pct 0.2 % [facility] Comment: Interpretive Data Percent cell count reference ranges are not reported, since discordance with absolute values may lead to misinterpretation of CBC data. Current Interpretive Data was last revised on 2017. Blood 01/09/2021 2:33 PM NEURODIAGNOSTIC TECHNICIAN 01/09/2021 2:52 PM NEURODIAGNOSTIC TECHNICIAN Zuleyma Stevenson [facility] LAB BLOOD ORDERABLES Final Result [facility] [place] [address] * (ABNORMAL) Comprehensive metabolic panel (01/09/2021 2:33 PM NEURODIAGNOSTIC TECHNICIAN) Sodium 142 135 - 145 mmol/L [facility] Potassium, pl 4.2 3.3 - 4.9 mmol/L [facility] Chloride 106 97 - 110 mmol/L [facility] CO2 23 22 - 32 mmol/L [facility] Anion gap 13 2 - 15 mmol/L [facility] BUN 16 8 - 25 mg/dL [facility] Creatinine 0.59(L) 0.60 - 1.10 mg/dL [facility] Glucose 92 70 - 199 mg/dL [facility] Comment: Interpretive Data Fasting glucose >/= 126 [...] 2017. Calcium 9.1 8.5 - 10.3 mg/dL [facility] Bilirubin, total 0.3 0.1 - 1.2 mg/dL [facility] Protein, pl 6.5 6.5 - 8.5 g/dL [facility] Albumin 3.8 3.5 - 5.0 g/dL [facility] Alk phos 73 40 - 130 Units/L [facility] ALT 18 7 - 45 Units/L [facility] AST 22 10 - 45 Units/L [facility] Blood 01/09/2021 2:33 PM NEURODIAGNOSTIC TECHNICIAN 01/09/2021 2:52 PM NEURODIAGNOSTIC TECHNICIAN Margarita Olea MD LAB BLOOD ORDERABLES Final Result [facility] [place] [address] * (ABNORMAL) CBC with auto differential (01/09/2021 2:33 PM NEURODIAGNOSTIC TECHNICIAN) Pathologist [facility] WBC 9.5 3.8 - 9.9 K/cumm [facility] Hgb 10.9(L) 11.9 - 15.5 g/dL [facility] Hct 34.0(L) 35.6 - 45.5 % [facility] Plt 361 150 - 400 K/cumm [facility] MPV 9.2 9.1 - 12.3 fL [facility] RBC 3.66(L) 3.90 - 5.20 M/cumm [facility] MCV 92.9 81.3 - 96.4 fL [facility] MCH 29.8 27.1 - 33.3 pg [facility] MCHC 32.1(L) 32.3 - 35.7 g/dL [facility] RDW CV 17.2(H) 11.1 - 14.9 % [facility] RDW SD 59.1(H) 35.7 - 48.1 fL [facility] NRBC abs 0.00 0.00 - 0.01 K/cumm [facility] Blood 01/09/2021 2:33 PM NEURODIAGNOSTIC TECHNICIAN 01/09/2021 2:52 PM NEURODIAGNOSTIC TECHNICIAN Zuleyma CISNEROS LAB BLOOD ORDERABLES Final Result [facility] [place] [address] documented in this encounter Visit Diagnoses Not on filedocumented in this encounter Care Teams Septic Tank Setter Relationship Specialty [place] [id number] [address] [id number] [place] [address] PCP - General 07/04/19 [place] [address] [address] [address] 11/16/18 Ernie Shaw MD [address] [place] [address] [address] [place] [address] [employer] Winding Operator Obstetrics and Gynecology 06/10/20 documented as of this encounter
--- OUTSIDE RECORDS SUMMARY | 2024-02-24 20:01 | XMS_ITS | Encounter Summary ---
Author Organization [facility] [employer] [facility] Address [address] [place] [address] Phone Care Team Providers Care Team Driver Name Role Phone Huseyin Dangelo MD Unavailable Brian Mon MD Primary Care Provider + Ernie Shaw MD Unavailable [phone] Reason for Visit * Reason Comments Follow-up Encounter Details Date Type Department Care Team (Late st Contact Info) Description 01/11/2021 2:45 PM SECONDARY EDUCATION PROFESSOR Office Visit [facility] Maternal- Medicine [address] [place] [address] Health 7th Floor [address] [place] [address] Kristin Sorto MD [address] [place] [id number] Adrenal insufficiency (CMS/HCC) (HCC) (Primary Dx); Encounter for routine follow-up; Anemia during in third trimester; Generalized anxiety disorder; Lupus (CMS/HCC) (HCC); Placenta previa Social History Tobacco Use Types Packs/Day Years [...] a nursing home (including now)? No 01/01/2021 Dauphin Depression Scale Answer Date Recorded Da[place]hin Depression Scale Total 11 01/11/2021 The thought [...] Sign Reading Time Taken Comments Blood Pressure 119/80 01/11/2021 2:56 PM SECONDARY EDUCATION PROFESSOR Pulse 88 01/11/2021 2:56 PM SECONDARY EDUCATION PROFESSOR Temperature - - Respiratory Rate - - Oxygen Saturation 97% 01/11/2021 2:56 PM SECONDARY EDUCATION PROFESSOR Inhaled Oxygen Concentration - - Weight 79.8 kg (176 lb) 01/11/2021 2:56 PM SECONDARY EDUCATION PROFESSOR Height 157.5 cm (5' 2 ) 01/11/2021 2:56 PM SECONDARY EDUCATION PROFESSOR Body Mass Index 32.19 01/11/2021 2:56 PM SECONDARY EDUCATION PROFESSOR documented in this encounter Progress Notes * Kristin Sorto MD - 01/11/2021 2:45 PM CST MFM Visit 01/11/2021 Delivery Date: 12/30/2020 Type: , Low Transverse [251] Delivery Details: primary for placenta previa with intrapartum hemorrhage course complicated by anemia with suspected bleed during delivery, now s/p cooling. Working on feeds, reassuring MRI x2 Subjective: Since delivery she has been spending time with her baby Mayra in the NICU as she increases her feeds. Lots of stress related to her daughter's care. Travel back and forth from home is burdensome. Some pain above incision, treating with modest releif with tylenol, ibuprofen, oxycodone. Lidocaine patch and support band did not help. Lochia is family medicine chair today. Denies localizing urinary complaints Objective: BP 119/80 Pulse 88 Ht 157.5 cm (5' 2 ) Wt 176 lb (79.8 kg) LMP (LMP Unknown) Comment: LMP end of Mar 2020 SpO2 97% BMI 32.19 kg/m?? General: Pleasant female in NAD CV: Breathing comfortably, regular heart rate Back: no CVA tenderness Abdomen: soft, NT, incision clean, dry, intact, some induration superior to the incision, without erythema or warmth Extremities: warm and well-perfused and non-tender, no edema Placental pathology and cbc reviewed. Hgb is improving since delivery, most recently 10.9 Urine culture < 100,000 CFU GBS Assessment and Plan: Carito Madison is a 30 y.o. yo now 12 days s/p delivery -Reviewed intraoperative course and course with Dr. Hazel Trejo and Dr. Santiago Neely (neonatology) in family meeting today. Patient and present- questions answered. -:meeting post-operative milestones. Area of induration may be scar tissue or hematoma, no evidence of expansion or infection - - pumping successfully -Medical issues: Lupus: visit with Rheumatology appointment 01/13. Currently on prednisone, hydroxychloroquine. Plans discussion re: use of Benlysta. Reviewed that oral bioavailability is likely low but insufficient data to determine safety in Anemia: continue PNV, start iron if tolerates -Will defer treating low level bacturia given low clinical suspicion for UTI. Reviewed precautions -Contraception: Carito deferred discussion today. Does request SALES REPRESENTATIVE PRINTING PAPER referral. -Pap smear insufficient, will need to be rescheduled -Anxiety/ADHD: depression surveillance: EPDS 11, reviewed precautions. On Zoloft 25 mg daily, declines referral to psychiatric care. Hopes to discuss continuing this medication with her PCP MANAGER ESTATE Gayla Barker Follow up 2 week for incision check given maternal concern/pain NDARY EDUCATION PROFESSOR documented in this encounter Plan of Treatment Not on file documented as of this encounter Visit Diagnoses Diagnosis Adrenal insufficiency (HCC)- Primary Glucocorticoid deficiency Encounter for routine follow-up Anemia during in third trimester Generalized anxiety disorder Lupus Systemic lupus erythematosus Placenta previa documented in this encounter Care Teams Team Driver Relationship Specialty [place] [address] [address] [address] PCP - General 07/04/19 [place] [address] [address] [place] [address], [place] [address] 11/16/18 Ernie Shaw MD [address] [facility] [address] [place] [address] Local Intermodal Truck Driver Obstetrics and Gynecology 06/10/20 documented as of this encounter
--- OUTSIDE RECORDS SUMMARY | 2024-02-24 20:01 | XMS_ITS | Encounter Summary ---
Author Organization [facility] Healthcare Address [address] [place] [address] Care Team Providers Care Puller Through Name Role Phone Huseyin Dangelo MD Unavailable [phone] Brian Mon MD Primary Care Provider + Ernie Shaw MD Unavailable [phone] Encounter Details Date Type Department Care Team (Latest Contact Info) Description 01/14/2021 12:32 PM SAUSAGE STRINGER - 01/14/2021 1:05 PM SAUSAGE STRINGER Hospital Encounter [address] [phone] Crystal Murray MD [address] [facility] [id number] [place] [address] Discharge Disposition: Discharge to home or self [...] and Family Not on file 01/01/2021 Attends Jainism Services Not on file 01/01 Active Member [...] in a intermediate (including now)? No 01/01/2021 Ackworth Depression Scale Answer Date Recorded Ackworth Depression Scale Total 11 01/11/2021 The thought [...] Sign Reading Time Taken Comments Blood Pressure 131/82 01/14/2021 12:36 PM SAUSAGE STRINGER Pulse 76 01/14/2021 12:36 PM SAUSAGE STRINGER Temperature 36.8 ??C (98.2 ??F) 01/14/2021 12:[address] Respiratory Rate 18 01/14/2021 12:36 PM SAUSAGE STRINGER Oxygen Saturation 99% 01/14/2021 12:36 PM SAUSAGE STRINGER Inhaled Oxygen Concentration - - Weight 79.4 kg (175 lb) 01/14/2021 12:36 PM SAUSAGE STRINGER Height 160 cm (5' 3 ) 01/14/2021 12:36 PM SAUSAGE STRINGER Body Mass Index 31 01/14/2021 12:36 PM SAUSAGE STRINGER documented in this encounter Medications at Time [...] for muscle spasms 30 tablet 01/03/2021 3 hydrOXYchloroQUIN E (PLAQUENIL) 200 mg tablet Take 2 tablets (400 mg total) by mouth daily 60 tablet 5 09/30/[address] (PROTONIX) 40 mg EC tabletIndications :Stress Ulcer Prophylaxis Take 1 tablet (40 mg total) by mouth daily 30 tablet 11 01/03/2021 3 PNV with mbwzrhz-fmdy-ZE 27 mg iron- 1 mg tabletIndications :Vitamin Deficiency Prevention Take 1 tablet by mouth daily 30 tablet 1 01/04/2021 3 predniSONE (DELTASONE) 2.5 mg tablet Take 3 tablets (7.5 mg) by mouth daily 30 tablet 2 01/04/2021 2 sertraline (ZOLOFT) 25 mg tablet 10/18/2020 2 simethicone (MYLICON) 80 mg chewable tabletIndications :Flatulence Take 1 tablet (80 mg total) by mouth 4 (four) times a day as needed for flatulence 30 tablet 01/03/2021 3 documented as of this encounter Discharge Disposition Disposition Code Departure Means Destination Discharge to home or self care documented in this encounter Progress Notes * Maya Murillo NP - 01/14/2021 1:05 PM CST Progress Note: Patient presented to [facility] for concern for mastitis vs yeast infection. Patient arrived at desk 1233.Vitals at 1236. Patient placed in [facility] 10 by RN approx 1250. RN discussed patient complaint with me.Triage orders placed at 1253. As I was reviewing chart to see patient, patient left the unit without being seen. Patient left unit at 1305. Dr. Arevalo notified. KATHRIN Moore- 01/14/21 Cosigned by Nathalie Shukla MD at 01/14/2021 2:01 PM SAUSAGE STRINGER AGE STRINGER AGE STRINGER documented in this encounter Nursing Notes * Svetlana Kern RN - 01/14/2021 12:58 PM CST Pt presented to [facility] with concerns about mastitis or a yeast infection. VS stable, upon assessment pts breasts appeared engorged. Pt stated pumping is painful and she still feels full after pumping for 20 min. Pt educated on the importance of emptying breasts with each pumping session to improve pain. Pt stated she would like to leave. AGE STRINGER documented in this encounter Plan of Treatment Not on file documented as of this encounter Visit Diagnoses Not on filedocumented in this encounter Care Teams Puller Through Relationship Specialty [place] [address] [address] [place] [address] PCP - General 07/04/19 [place] [address] [address] [place] [address] 11/16/18 Ernie Shaw MD [address] [place] [address] [address] [place] [address] Caption Writer Obstetrics and Gynecology 06/10/20 documented as of this encounter
--- OUTSIDE RECORDS SUMMARY | 2024-02-24 20:01 | XMS_ITS | Encounter Summary ---
Author Organization [facility] Healthcare Address [address] [place] [address] Care Team Providers Care Geriatric Nursing Assistant Name Role Phone Huseyin Dangelo MD Unavailable [phone] Brian Mon MD Primary Care Provider + Ernie Shaw MD Unavailable [phone] Encounter Details Date Type Department Care Team (Late st Contact Info) Description 01/21/[address] [phone] Harriett Higuera RN Social History Tobacco Use Types Packs/Day [...] in a mcc (including now)? No 01/01/2021 Luna Depression Scale Answer Date Recorded Luna Depression Scale Total 11 01/11/2021 The thought [...] as of this encounter Progress Notes * Harriett Higuera, PRO - 01/21/2021 6:09 PM CST Pt called with concerns that she has mastitis in her left breast. Pt denies fever but states that she's had chills since last night at 1900. Left breasts feels engorged and tender to the touch. No leaking, no redness, no pus. Pt took motrin last 5 minutes before she called, no change in sx. Advisedpt that her breasts are more than likely engorged vs mastitis but if pt is persistently uncomfortable, she should come in to be seen. Pt states she's been to the [facility] before with concerns about mastitis and she was found to not have mastitis but pt is sure she has mastitis. Pt also states that [facility] is 1 hour from her home so she would rather avoid the drive if possible. Pt mentioned going to a local urgent care for her concerns. This RN advised pt to go where she's seen at her earliest convenience. Pt decided to go to urgent care. Informed pt that she can call with any other questions or concerns. Y EQUIPMENT SALES ASSOCIATE documented in this encounter Plan of Treatment Not on file documented as of this encounter Visit Diagnoses Not on filedocumented in this encounter Additional Health Concerns Infection Onset Date Last Indicated Resolved Time COVID: Suspected 01/14/2021 01/14/2021 01/28/2021 3:05 AM HEAVY EQUIPMENT SALES ASSOCIATE documented as of this encounter Care Teams Geriatric Nursing Assistant Relationship Specialty [place] [address] [address] [place] [address] PCP - General 07/04/19 [place] [address] [address] [place] [address] 11/16/18 Ernie Shaw MD [address] [place] [address] [address] [place] [address] Pm Technician Obstetrics and Gynecology 06/10/20 documented as of this encounter
--- OUTSIDE RECORDS SUMMARY | 2024-02-24 20:01 | XMS_ITS | Encounter Summary ---
Author Organization [facility] Healthcare Address [address] [place] [address] Care Team Providers Care Photostat Operator Helper Name Role Phone Huseyin Dangelo MD Unavailable [phone] Brian Mon MD Primary Care Provider + Ernie Shaw MD Unavailable [phone] Encounter Details Date Type Department Care Team (Late st Contact Info) Description 01/09/[address] [facility] [address] [place] [address] Margarita Olea MD [address] [facility] [phone] [place] [address] Social History Tobacco Use Types [...] in a fdc (including now)? No 01/01/2021 Comments No Sex [...] Miscellaneous Notes * Telephone Encounter - Margarita Olea MD - 01/09/2021 8:53 PM UTILITY SALES AND SERVICE MANAGER Spoke to Ms. Madison on the phone after she called in to the [facility]. States that the right aspect of her incision is hurting more now and still feels very firm. She took an oxycodone x 1 without improvement. She plans on presenting to the [facility] tomorrow for assessment and declined re-presenting this evening. She inquired about a CT scan. We reviewed that CT scans are typically reserved for concerns of deep soft tissue infections/abscesses, fluid collections/ongoing bleeding, or dehiscence. We reviewed today's findings did not indicate any of these processes. I reassured her that she would be examined thoroughly and if the team thought a CT was warranted, then it could be ordered from the [facility]. All questions were answered to her satisfaction. Margarita Olea MD Maternal- Medicine Fellow Department of Obstetrics and Gynecology Pager: [phone] ITY SALES AND SERVICE MANAGER documented in this encounter Plan of Treatment Not on file documented as of this encounter Visit Diagnoses Not on filedocumented in this encounter Care Teams Photostat Operator Helper Relationship Specialty [place] [address] [address] [place] [address] PCP - General 07/04/19 [place] [address] [address] [facility] [place] [address] 11/16/18 Ernie Shaw MD [address] [facility] [address] [facility] [place] [address] Nut Chopper Obstetrics and Gynecology 06/10/20 documented as of this encounter
--- OUTSIDE RECORDS SUMMARY | 2024-02-24 20:01 | XMS_ITS | Encounter Summary ---
Author Organization [facility] Healthcare Address [address] [place] [address] Care Team Providers Care Seed Trucker Name Role Phone Huseyin Dangelo MD Unavailable [phone] Brian Mon MD Primary Care Provider + Ernie Shaw MD Unavailable [phone] Reason for Visit * Reason Comments Rectal Bleeding Encounter Details Date Type Department Care Team (Latest Contact Info) Description 01/21/2021 1:07 AM CHUTE OPERATOR - 01/21/2021 1:40 AM CHUTE OPERATOR Hospital Encounter [address] [phone] Alma Alves MD [address] [id number] Discharge Disposition: Discharge to home or self [...] a senior care (including now)? No 01/01/2021 [place] Depression Scale Answer Date Recorded [place] Depression Scale Total 11 01/11/2021 The thought [...] Sign Reading Time Taken Comments Blood Pressure 137/76 01/21/2021 1:10 AM CHUTE OPERATOR Pulse 67 01/21/2021 1:10 AM CHUTE OPERATOR Temperature 36.8 ??C (98.2 ??F) 01/21/2021 1:10 AM CS T Respiratory Rate 18 01/21/2021 1:10 AM CHUTE OPERATOR Oxygen Saturation - - Inhaled Oxygen Concentration - - Weight - - Height - - Body Mass Index - - documented in this encounter Discharge Diagnoses Diagnosis Other complications of the puerperium, not elsewhere classified - OTHER COMPLICATIONS OF THE PUERPERIUM, NOT ELSEWHERE CLASSIFIED Melena - MELENA Blood in stool Depression, unspecified - DEPRESSION, UNSPECIFIED Generalized anxiety disorder - GENERALIZED ANXIETY DISORDER Chronic kidney disease, unspecified - CHRONIC KIDNEY DISEASE, UNSPECIFIED 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) ([facility]) - GLOMERULAR DISEASE IN SYSTEMIC LUPUS ERYTHEMATOSUS Rheumatoid arthritis, unspecified ([facility]) - RHEUMATOID ARTHRITIS, UNSPECIFIED retirement (current) use of systemic steroids - TELEPHONE CLERKS SUPERVISOR (CURRENT) USE OF SYSTEMIC STEROIDS Other group home (current) drug therapy - OTHER TELEPHONE CLERKS SUPERVISOR (CURRENT) DRUG THERAPY Personal history of nicotine dependence - PERSONAL HISTORY OF NICOTINE DEPENDENCE Allergy status to penicillin - ALLERGY STATUS TO PENICILLIN Allergy status to other antibiotic agents - ALLERGY STATUS TO OTHER ANTIBIOTIC AGENTS Allergy status to other drugs, medicaments and biological substances - ALLERGY STATUS TO OTHER DRUGS, MEDICAMENTS AND BIOLOGICAL SUBSTANCES History of uterine scar from previous surgery - HISTORY OF UTERINE SCAR FROM PREVIOUS SURGERY Acquired absence of other specified parts of digestive tract - ACQUIRED ABSENCE OF OTHER SPECIFIED PARTS OF DIGESTIVE TRACT documented in this encounter Medications at Time [...] 30 tablet 11 01/03/2021 3 PNV with hqnygsh-nepc-AH 27 mg iron- 1 mg tabletIndications :Vitamin [...] documented in this encounter H&P Notes * Alma Genao MD - 01/21/2021 1:21 AM CST [facility] H&P Chief Complaint: diarrhea, incision pain Estimated Date of Delivery: 01/27/21 Provider: RENETTA HPI: Carito Madison is a 30 y.o. female POD#22 s/p pLTCS for complete previa c/b PPH. Her was complicated by complete previa, PPH, poly, marginal cord insertion, lupus, generalized anxiety disorder, GBS positive. Patient presents today after seeing some bright red blood in her stool this evening. She was in theNICU this evening and wanted to stop by the [facility] and check to make sure she was ok . She wanted to know if the hematoma from her scar could be the cause of the bleeding. She reports no change in medsor medical history since last visit. Denies nausea or vomiting. She did feel a pop in her abdomenwhen bending over today but it was accompanied by no additional symptoms-- no abdominal pain, no cramping, no rectal pain -- and she reports feeling well overall. She does state eating a lot of corn this evening and thinks her blood is from digesting the kernels. Provided a stool sample in [facility] which was medium brown in color, with visible kernels seen, and surrounded by a teaspoon or two of bright blood She states she's excited that her daughter is being discharged from the NICU tomorrow. Of note, patient has a chronic history [...] mg capsule al & mag hydroxide with kjottaeaddb-dycwkildwejzveb-kvsqksnju (MAGIC MOUTHWASH) suspension 1-1-1 cyclobenzaprine (FLEXERIL) 5 mg tablet hydrOXYchloroQUINE (PLAQUENIL) 200 mg tablet ibuprofen (ADVIL,MOTRIN) [address] (PROTONIX) 40 mg EC tablet PNV with orftbwl-qbbl-BN 27 mg iron- 1 mg tablet predniSONE (DELTASONE) 2.5 mg tablet sertraline (ZOLOFT) 25 mg tablet simethicone (MYLICON) 80 mg chewable tablet Review of Sys: Negative except per HPI Vitals: Temp: [36.8 ??C (98.2 ??F)] 36.8 ??C (98.2 ??F) Pulse: [67] 67 Resp: [18] 18 BP: (137)/(76) 137/76 Physical Exam: General: NAD, mood appropriate Cardiovascular: Regular rate and rhythm Pulmonary: Clear to ausculation bilaterally Abdomen: soft, non-distended, non-tender Extremities: Warm and well perfused Labs: Lab Results Component Value Date ABORH A Positive 12/30/2020 IDCOOMB Negative 12/30/2020 [id number] Nonreactive 12/06/2020 LABRPR Nonreactive 12/30/2020 Assessment and Plan Carito Madison is a 30 y.o. female POD#10 s/p pLTCS for complete previa c/b PPH. #Hematochezia, likely hemorrhoids vs lower GI abrasion from diet today. Low suspicion for upper GI bleed as stool is light brown and blood is bright red - VSS, pt denies s/s acute blood loss anemia - Pt denies pain - Pt unsure if she has hemorrhoids, declined my offer to look and evaluate - Recommend patient use hemorrhoid cream if she continues to have bleeding and see if helpful - If she tries the cream and continues to have bleeding more than a week, recommend to call her GI physician -No indication for stool studies or CBC at this time Patient desired reassurance. Plan discussed with Dr. Genao. Angie Mcnair MD 01/21/21 [facility] Fellow Attestation I have discussed Carito Madison with the above provider on 01/21/2021. I have reviewed the treatment plan and recommendations. I agree with the findings and the plan of care as documented in the note. Alma Genao MD Maternal- Medicine Fellow Cosigned by Roro Sherwood MD at 01/21/2021 7:43 AM CHUTE OPERATOR E OPERATOR E OPERATOR E OPERATOR Associated attestation - Roro Sherwood MD - 01/21/2021 7:43 AM CHUTE OPERATOR The resident/fellow saw and examined the patient, we discussed their findings, and I am in agreement with the plan based on the discussion with the resident/fellow. I did not personally examine the patient. Roro Sherwood MD Rn Documentation Division of Maternal- Medicine documented in this encounter Nursing Notes * Tricia Nolasco RN - 01/21/2021 1:40 AM CST Patient came to [facility] for rectal bleeding. VSS. HUBBARD assessed stool and patient. Discharged home and was told to consult her GI doctor if the bleeding continued for a week. Patient agreeable to plan. E OPERATOR documented in this encounter Plan of Treatment Not on file documented as of this encounter Visit Diagnoses Not on filedocumented in this encounter Additional Health Concerns Infection Onset Date Last Indicated Resolved Time COVID: Suspected 01/14/2021 01/14/2021 01/28/2021 3:05 AM CHUTE OPERATOR documented as of this encounter Care Teams Seed Trucker Relationship Specialty [place] [address] [address] [facility] [place] [address] PCP - General 07/04/19 [place] [address] [address] [place] [address] 11/16/18 Ernie Shaw MD [address] [place] [address] [address] [place] [address] Lidding Machine Operator Obstetrics and Gynecology 06/10/20 documented as of this encounter
--- OUTSIDE RECORDS SUMMARY | 2024-02-24 20:01 | XMS_ITS | Encounter Summary ---
Author Organization [facility] Healthcare Address [address] [place] [address] Care Team Providers Care Monitoring Specialist Name Role Phone Huseyin Dangelo MD Unavailable [phone] Brian Mon MD Primary Care Provider + Ernie Shaw MD Unavailable [phone] Reason for Visit * Reason Onset Date Comments Incoming Call 01/09/2021 postpartu m wound pain Encounter Details Date Type Department Care Team (Late st Contact Info) Description 01/09/2021 Nurse Triage [address] [address] Karen Gibbs, RN Social History Tobacco Use [...] in a fdc (including now)? No 01/01/2021 [place] Depression Scale Answer Date Recorded [place] Depression Scale Total 11 01/11/2021 The thought [...] Miscellaneous Notes * Telephone Encounter - Karen Gibbs RN - 01/09/2021 2:29 AM CST Pt called to [facility] with c/o firm, tender area around c/s incision. She has a baby in the NICUAnd said she will stop by [facility] in the morning when she comes to see baby. Reason for Disposition ? ? [1] INCREASING pain in incision AND [2] > 2 days (48 hours) since surgery Answer Assessment - Initial Assessment Questions 1. SYMPTOM: What's the main symptom you're concerned about? (e.g., redness, pain, drainage) Hard, tender area 2. ONSET: When did *No Answer* start? 3. SURGERY: What surgery was performed? 12/30/20 c/s 4. DATE of SURGERY: When was surgery performed? 12/30/20 5. INCISION SITE: Where is the incision located? Abdomen 6. REDNESS: Is there any redness at the incision site? If yes, ask: How wide across is the redness? (Inches, centimeters) no 7. PAIN: Is there any pain? If Yes, ask: How bad is it? (Scale 1-10; or mild, moderate, severe) yes 8. BLEEDING: Is there any bleeding? If Yes, ask: How much? and Where? no 9. DRAINAGE: Is there any drainage from the incision site? If yes, ask: What color and how much? (e.g., red, cloudy, pus; drops, teaspoon) no10. FEVER: Do you have a fever? If Yes, ask: What is your temperature, how was it measured, and when did it start? *No Answer* 11. OTHER SYMPTOMS: Do you have any other symptoms? (e.g., shaking chills, weakness, rash elsewhere on body) *No Answer* Protocols used: POST-OP INCISION SYMPTOMS AND [id number] GE ENTRY SPECIALIST documented in this encounter Plan of Treatment Not on file documented as of this encounter Visit Diagnoses Not on filedocumented in this encounter Care Teams Monitoring Specialist Relationship Specialty [place] [address] [address] [place] [id number] PCP - General 07/04/19 [place] [address] [address] [place] [address] 11/16/18 Ernie Shaw MD [address] [facility] [address] [place] [address] Overnight Stocker Obstetrics and Gynecology 06/10/20 documented as of this encounter
--- OUTSIDE RECORDS SUMMARY | 2024-02-24 20:01 | XMS_ITS | Encounter Summary ---
Author Organization [facility] Healthcare Address [address] [place] [address] Care Team Providers Care Energy Sales Broker Name Role Phone Huseyin Dangelo MD Unavailable Brian Mon MD Primary Care Provider + Ernie Shaw MD Unavailable [phone] Reason for Visit * Reason Onset Date Comments Follow-up 01/10/2021 Increased b leeding / Question about hematoma Encounter Details Date Type Department Care Team (Late st Contact Info) Description 01/10/2021 Nurse Triage [address] [address] Mariza Mccoy RN Social History Tobacco Use Types Packs/Day [...] in a chcf (including now)? No 01/01/2021 [place] Depression Scale Answer Date Recorded [place] Depression Scale Total 11 01/11/2021 The thought [...] encounter Miscellaneous Notes * Telephone Encounter - Mariza Mccoy, RN - 01/10/2021 10:11 PM EXPORT SALES ASSISTANT Reason for Disposition ??? Normal bleeding Answer Assessment - Initial Assessment Questions 1. AMOUNT: How much bleeding are you having today? - SPOTTING: spotting, or pinkish / brownish mucous discharge; does not fill panti-liner or pad - MILD: less than 1 pad / hour; less than patient's usual menstrual bleeding - MODERATE: 1-2 pads / hour; 1 menstrual cup every 6 hours; small-medium blood clots (e.g., pea, grape, small coin) - SEVERE: soaking 2 or more pads/hour for 2 or more hours; 1 menstrual cup every 2 hours; bleeding not contained by pads or continuous red blood from vagina; large blood clots (e.g., golf ball, largecoin) Mild- but concerned because she really hasn't bleed a lot since delivery 2. ABDOMINAL PAIN: Do you have any pain? How bad is the pain? What does it keep you from doing? - MILD - doesn't interfere with normal activities, abdomen soft and not tender to touch - MODERATE - interferes with normal activities or awakens from sleep, tender to touch - SEVERE - excruciating pain, doubled over, unable to do any normal activities Mild- Notices it more at end of the day, but it's because she is busy with baby in the NICU 3. OTHER SYMPTOMS: Do you have any other symptoms? (e.g., fever, chills, dizziness) Denies any other symptoms Protocols used: - VAGINAL BLEEDING AND [id number] Pt called with concerns about an increase in bleeding. 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 Informed that it is normal to have intermittent bleeding for the first few weeks after delivery and will notice it more often after being up and doing more during the day. Encouraged patient to rest and hydrate and to call ifbleeding is saturating pads or has not slowed after resting for two hours. Pt states was told she had a hematoma and wanted to know if it could be the cause of the increased bleeding, and is concerned about a small open spot on incision. Pt informed that hematomas are formed d/t stretching or stress put on her incision, most likely from bending and increased activity to care for her baby in the NICU. Informed pt that given time the blood in the hematoma will dissolve and be reabsorbed. Denies any fever, or increased drainage from small spot on incision. Instructed to monitor for sxs of infection and to call if they occur. Encouraged pt to rest often, hydrate and to keep her follow-up appointment. Pt verbalizes understanding. RT SALES ASSISTANT documented in this encounter Plan of Treatment Not on file documented as of this encounter Visit Diagnoses Not on filedocumented in this encounter Care Teams Energy Sales Broker Relationship Specialty [place] [address] [address] [place] [address] PCP - General 07/04/19 [place] [address] [address] [place] [address] 11/16/18 Ernie Shaw MD [address] [place] [address] [address] [place] [address] Truck Repair Supervisor Obstetrics and Gynecology 06/10/20 documented as of this encounter
--- OUTSIDE RECORDS SUMMARY | 2024-02-24 20:01 | XMS_ITS | Encounter Summary ---
Author Organization [facility] Healthcare Address [address] [place] [address] Care Team Providers Care Fur Finisher Tailor Name Role Phone Huseyin Dangelo MD Unavailable [phone] Brian Mon MD Primary Care Provider + Ernie Shaw MD Unavailable [phone] Encounter Details Date Type Department Care Team (Late st Contact Info) Description 01/22/2021 - 01/22/2021 11:01 AM [facility] Emergency [facility] Emergency Department [address] [place], [place] [id number] Unknown, Notinfile Discharge Disposition: ED Dismiss - Never Arrived Social History Tobacco Use Types Packs/Day Years [...] in a prison (including now)? No 01/01/2021 [place] Depression Scale Answer Date Recorded [place] Depression Scale Total 11 01/11/2021 The thought [...] 30 tablet 11 01/03/2021 3 PNV with [id number] 27 mg iron- 1 mg tabletIndications :Vitamin [...] Discharge Disposition Disposition Code Departure Means Destination ED Dismiss - Never Arrived documented in this encounter Plan of Treatment Not on file documented as of this encounter Visit Diagnoses Not on filedocumented in this encounter Additional Health Concerns Infection Onset Date Last Indicated Resolved Time COVID: Suspected 01/14/2021 01/14/2021 01/28/2021 3:05 AM REPRODUCTIVE ENDOCRINOLOGIST documented as of this encounter Care Teams Fur Finisher Tailor Relationship Specialty [place] [address] [address] [facility] [place] [address] PCP - General 07/04/19 [place] [address] [address] [place] [address] 11/16/18 Ernie Shaw MD 4 [facility] [address] [place] [address] Toll Gate Tender Obstetrics and Gynecology 06/10/20 documented as of this encounter
--- OUTSIDE RECORDS SUMMARY | 2024-02-24 20:01 | XMS_ITS | Encounter Summary ---
Author Organization [facility] Healthcare Address [address] [place] [address] Care Team Providers Care Overlock Elastic Attacher Name Role Phone Huseyin Dangelo MD Unavailable [phone] Brian Mon MD Primary Care Provider + Ernie Shaw MD Unavailable [phone] Encounter Details Date Type Department Care Team (Late st Contact Info) Description 01/22/2021 Documentation [facility] [address] [place] [address] Silas Lazo MD [address] [id number] Social History Tobacco Use Types Packs/Day Years [...] in a longterm (including now)? No 01/01/2021 [place] Depression Scale Answer Date Recorded [place] Depression Scale Total 11 01/11/2021 The thought [...] times a day 28 capsule 01/22/2021 2 documented in this encounter Progress Notes * Silas Lazo MD - 01/22/2021 11:00 AM CST MFM Fellow Calls with left breast pain. Has symptoms of malaise, chills, but no fevers. Area is tender but noterythematous. Discussed engorgment/blocked duct vs mastitis. Given symptoms of generalized infection, will start ABX. Keflex RX written as there is a penicillin allergy. Previously tolerated keflex. Silas Lazo MD MIDDLE SCHOOL TEACHER documented in this encounter Plan of Treatment Not on file documented as of this encounter Visit Diagnoses Not on filedocumented in this encounter Additional Health Concerns Infection Onset Date Last Indicated Resolved Time COVID: Suspected 01/14/2021 01/14/2021 01/28/2021 3:05 AM MOID MIDDLE SCHOOL TEACHER documented as of this encounter Care Teams Overlock Elastic Attacher Relationship Specialty [place] [address] [address] [place] [address] PCP - General 07/04/19 [place] [address] [address] [facility] [place] [address] 11/16/18 Ernie Shaw MD [address] [place] [address] [address] [place] [address] Online Marketing Coordinator Obstetrics and Gynecology 06/10/20 documented as of this encounter
--- OUTSIDE RECORDS SUMMARY | 2024-02-24 20:01 | XMS_ITS | Encounter Summary ---
Author Organization [facility] Healthcare Address [address] [place] [address] Care Team Providers Care Mohs Surgeon Name Role Phone Huseyin Dangelo MD Unavailable [phone] Brian Mon MD Primary Care Provider + Ernie Shaw MD Unavailable [phone] Encounter Details Date Type Department Care Team (Late st Contact Info) Description 01/09/2021 Telephone [facility] [address] [place] [address] Margarita Olea MD [address] [facility] [address] [address] [phone] [place] [address] Social History Tobacco Use Types [...] and Family Not on file 01/01/2021 Attends Islam Services Not on file 01/01 Active Member [...] in a snf (including now)? No 01/01/2021 Comments No Sex [...] Encounter - Margarita Olea MD - 01/09/2021 3:38 PM KILN MAINTENANCE Spoke to Ms. Madison on the phone regarding her labs. CBC unremarkable. Postop leukocytosis resolved. H/H stable. CMP notable for slight Cr bump in setting of diarrhea, consistent with specific gravity of 1.030 onurinalysis. Encouraged good PO hydration and low threshold to present to [facility] if she feels dehydrated. UA reflexing to microscopy, although no overt signs of UTI. No new recommendations at this time. Patient has outpatient follow up on 01/11. No questions or concerns at this time. Margarita Olea MD Maternal- Medicine Fellow Department of Obstetrics and Gynecology Pager: [phone] MAINTENANCE documented in this encounter Plan of Treatment Not on file documented as of this encounter Visit Diagnoses Not on filedocumented in this encounter Care Teams Mohs Surgeon Relationship Specialty [place] [address] [address] [facility] [place] [address] PCP - General 07/04/19 [place] [address] [address] [facility] [place] [address] 11/16/18 Ernie Shaw MD [address] [place] [address] [address] [place] [address] Facing Baster Jumpbasting Obstetrics and Gynecology 06/10/20 documented as of this encounter
--- OUTSIDE RECORDS SUMMARY | 2024-02-24 20:01 | XMS_ITS | Encounter Summary ---
Author Organization [facility] Address [address] [place] [address] Phone Care Team Providers Care Shaker Repairer Name Role Phone Huseyin Dangelo MD Unavailable [phone] Brian Mon MD Primary Care Provider + Ernie Shaw MD Unavailable [phone] Reason for Visit * Reason Onset Date Comments nipples itching 01/19/2021 Encounter Details Date Type Department Care Team (Late st Contact Info) Description 01/19/2021 Telephone [facility] Maternal- Medicine [address] [facility] 7th [address] [place] [address] Leti Ricks nipples itching Social History Tobacco Use Types Packs/Day Years [...] in a longterm (including now)? No 01/01/2021 [place] Depression Scale Answer Date Recorded [place] Depression Scale Total 11 01/11/2021 The thought [...] * Telephone Encounter - Leti Ricks - 01/19/2021 2:36 PM CST Advised pt to continue to use the gel pads. Keep breasts open to air after pumping to dry. May try to apply some otc hydrocortisone cream to the area but be sure to wipe it off before pumping. ERNITY HOUSE COOK * Telephone Encounter - Alma Genao MD - 01/19/2021 2:26 PM FRATERNITY HOUSE COOK I would just reassure her then. I don't think that there is any medication indicated ERNITY HOUSE COOK * Telephone Encounter - Leti Ricks - 01/19/2021 1:53 PM CST She is currently using the gel pads and per pt she is seeing security specialist thru the NICU. ERNITY HOUSE COOK * Telephone Encounter - Alma Genao MD - 01/19/2021 1:48 PM FRATERNITY HOUSE COOK Can we recommend that she gets lanolin gel pads and a consult? ERNITY HOUSE COOK * Telephone Encounter - Leti Ricks - 01/19/2021 1:37 PM CST Pt called to report that her nurse told her to call and request medication for her nippleitching. Pt tells me that she was seen in the [facility] and had breasts evaluated and was told they were fine. Pt reports that her nipples itch constantly. She tells me that they are cracked as well. Has been using Lanolin. Pt reports that it hurts to pump when she starts but gets a little better soon after she starts but then hurts again very quickly. She tells me that her breasts seem to go numb after awhile of pumping. Pt is only pumping and not putting baby to breast. Advised pt that I would check with providers for guidance and return her call. ERNITY HOUSE COOK documented in this encounter Plan of Treatment Not on file documented as of this encounter Visit Diagnoses Not on filedocumented in this encounter Additional Health Concerns Infection Onset Date Last Indicated Resolved Time COVID: Suspected 01/14/2021 01/14/2021 01/28/2021 3:05 AM FRATERNITY HOUSE COOK documented as of this encounter Care Teams Shaker Repairer Relationship Specialty [place] [address] [address] [facility] [place] [address] PCP - General 07/04/19 [place] [address] [address] [facility] [place] [address] 11/16/18 Ernie Shaw MD [address] [facility] [address] [place] [address] Global Program Manager Obstetrics and Gynecology 06/10/20 documented as of this encounter
--- OUTSIDE RECORDS SUMMARY | 2024-02-24 20:01 | XMS_ITS | Encounter Summary ---
Author Organization [facility] Healthcare Address [address] [place] [address] Care Team Providers Care Artificial Intelligence Specialist Name Role Phone Huseyin Dangelo MD Unavailable [phone] Brian Mon MD Primary Care Provider + Ernie Shaw MD Unavailable Reason for Visit * Reason Onset Date Comments Incoming Call 01/09/2021 spot on i ncision Encounter Details Date Type Department Care Team (Late st Contact Info) Description 01/09/[address] [address] Karen Gibbs RN Incoming Call (spot on incision) Social History Tobacco Use Types Packs/Day Years [...] place to sleep or slept in a detention (including now)? No 01/01/2021 Comments No Sex [...] Encounter - Karen Gibbs RN - 01/09/2021 8:55 PM CST Call received for pt Requesting to speak with Dr. Olea. Dr Olea contacted and is to return call to pt. RETE PUMP OPERATOR HELPER documented in this encounter Plan of Treatment Not on file documented as of this encounter Visit Diagnoses Not on filedocumented in this encounter Care Teams Artificial Intelligence Specialist Relationship Specialty [place] [address] [address] [facility] [place] [place] [address] PCP - General 07/04/19 [place] [address] [address] [facility] [place] [address] 11/16/18 Ernie Shaw MD [address] [place] [address] [address] [place] [address] Expressive Art Therapist Obstetrics and Gynecology 06/10/20 documented as of this encounter
--- OUTSIDE RECORDS SUMMARY | 2024-02-24 20:01 | XMS_ITS | Encounter Summary ---
Author Organization [facility] Healthcare Address [address] [place] [address] Care Team Providers Care Data Analyst Report Writer Name Role Phone Huseyin Dangelo MD Unavailable [phone] Brian Mon MD Primary Care Provider + Ernie Shaw MD Unavailable [phone] Encounter Details Date Type Department Care Team (Latest Contact Info) Description 01/13/2021 2:25 PM COIL SPRING ASSEMBLER - 01/13/2021 2:48 PM COIL SPRING ASSEMBLER Hospital Encounter [address] [phone] Crystal Murray MD [address] [facility] [phone] [place] [address] Discharge Disposition: Left without being seen Social [...] in a fdc (including now)? No 01/01/2021 [place] Depression Scale Answer Date Recorded [place] Depression Scale Total 11 01/11/2021 The thought [...] 30 tablet 11 01/03/2021 3 PNV with [id number]-[id number]-HX 27 mg iron- 1 mg tabletIndications :Vitamin [...] Discharge Disposition Disposition Code Departure Means Destination Left without being seen documented in this encounter Nursing Notes * Katie Tai RN - 01/13/2021 2:48 PM CST Patient left triage area without being seen. Patient stated to the financial secretary that she is going to see her baby and will be back . SPRING ASSEMBLER documented in this encounter Plan of Treatment Not on file documented as of this encounter Visit Diagnoses Not on filedocumented in this encounter Care Teams Data Analyst Report Writer Relationship Specialty [place] [address] [address] [place] [address] PCP - General 07/04/19 [place] [address] [address] [place] [address] 11/16/18 Ernie Shaw MD [address] [facility] [address] [place] [address] Reel Cart Operator Obstetrics and Gynecology 06/10/20 documented as of this encounter
--- OUTSIDE RECORDS SUMMARY | 2024-02-24 20:01 | XMS_ITS | Encounter Summary ---
Author Organization [facility] Address [address] [place] [address] Phone Care Team Providers Care Transformer Mechanic Name Role Phone Huseyin Dangelo MD Unavailable Brian Mon MD Primary Care Provider + Ernie Shaw MD Unavailable [phone] Reason for Visit * Reason Onset Date Comments concern for mastitis 01/14/2021 Encounter Details Date Type Department Care Team (Late st Contact Info) Description 01/14/[address] [facility] Maternal- Medicine [address] [facility] 7th [address] [place] [address] Fariba Chin RN concern for mastitis Social History Tobacco Use Types Packs/Day Years [...] in a fpc (including now)? No 01/01/2021 [place] Depression Scale Answer Date Recorded [place] Depression Scale Total 11 01/11/2021 The thought [...] Telephone Encounter - Fariba Chin RN - 01/14/2021 9:15 AM CST Kellen and I explained Carito's needs and concerns to Dr. Juarez and asked her to please review the picture she sent in. She review the photos and states it is hard to tell what is going on and she needs to be seen in person. I called Carito back and explained that Dr. Juarez reviewed the photos and states is it hard to tell what is going on and she needs to be evaluated in person. Yesterday Carito stated the rehabilitation consultant told her she could have a yeast infection of herbreast. If that is the case and we give her Keflex it will make is worse. I explained again the importance of her being seen in person. Unfortunately we don't have a slot to see her in clinic today so we recommend she go to the [facility]. She asked if she could go to her local doctor. I explained that we are the one taking care of her in the period and she would be best served with coming to the [facility] where our team of doctors can evaluated her. She verbalized understanding and stated that she will come in to be seen. UTIVE RECRUITER * Telephone Encounter - Fariba Chin RN - 01/14/2021 8:55 AM CST Carito called this morning stating her breast are very painful. She went to the [facility] yesterday forevaluation and they were slammed and it was going to be a long wait so she didn't go. She states she doesn't want to go back to the [facility] to just wait and they don't do anything for her anyway. She stated that she sent pictures and would like to provider to look at them and she wants to know if she can just get a prescription for Keflex. She spoke with the rehabilitation consultant and they toldher she is engorged from her milk coming in so fast but they are red and painful so she is concerned it is mastitis. She still does not have a fever. She stated again that Dr. Sorto evaluated her breasts at her appointment on Sunday and told her that if it continues that we may need to prescribe her Keflex. That is what she wants to do. I let her know that I will need to discuss this with the providers and get back to her. She verbalized understanding and asked me to make sure they look at her picture. I explained that I think they already have but I will check. UTIVE RECRUITER documented in this encounter Plan of Treatment Not on file documented as of this encounter Visit Diagnoses Not on filedocumented in this encounter Care Teams Transformer Mechanic Relationship Specialty [place] [address] [address] [facility] [place] [address] PCP - General 07/04/19 [place] [address] [address] [facility] [place] [address] 11/16/18 Erine Shaw MD [address] [place] [address] [address] [facility] [place] [address] Gas Line Repairer Obstetrics and Gynecology 06/10/20 documented as of this encounter
--- OUTSIDE RECORDS SUMMARY | 2024-02-24 20:02 | XMS_ITS | Encounter Summary ---
Author Organization [facility] Healthcare Address [address] [place] [address] Care Team Providers Care Regulatory Affairs Portfolio Leader Name Role Phone Huseyin Dangelo MD Unavailable [phone] Brian Mon MD Primary Care Provider + Ernie Shaw MD Unavailable [phone] Encounter Details Date Type Department Care Team (Late st Contact Info) Description 12/27/2020 11:05 AM CDT Lab [place] [phone] Supervision of high-risk , unspecified trimester Social History Tobacco Use Types Packs/Day Years Used Date Smoking Tobacco: Former Cigarettes Q uit: 12/28/2018 Smokeless Tobacco: Never Alcohol Use Standard Drinks/Week Comments Yes 0 (1 standard drink = 0.6 oz pur e alcohol) occasionally AUDIT-C Answer Date Recorded Q1: How often do you have a drink containing alc ohol? Never 12/30/2020 Average Number of Drinks Not on file 021 Q3: How often do you have si x or more drinks on one occasion? Never 12/30/2020 PHQ-2 Answer Date Recorded PHQ-2 Total Score (If total score is 3 or more points, staff should administer the PHQ-9) 0 05/25/2019 Comments Yes Sex and Gender Information Value [...] Procedure Name Priority Date/Time Associated Diagnosis Comments GROUP B STREPTOCOCCUS CULTURE, PENICILLIN ALLERGIC Routine 12/27/2020 11:05 AM CDT Supervision of high-risk , unspecified trimester documented in this encounter Results * (ABNORMAL) Group B streptococcus culture, penicillin allergic Vaginal/Rectal (12/27/2020 11:05 AM CDT) Report Final Report: Streptococcus agalactiae (Group B Streptococci) (.) [facility] Organism STREPTOCOCCUS AGALACTIAE (GROUP B STREPTOCOCCI) [facility] Vaginal/Rectal 12/27/2020 11 :05 AM CDT 12/27/2020 12:13 PM CDT Narrative [facility] - 12/30/2020 2:08 PM CDT Testing performed by [facility] ([phone]). Organism Antibiotic Method Susceptibility Streptococcus agalactiae (Gr oup B Streptococci) Penicillin (BENJAMIN) (BENJAMIN) INTERPRETATION Susceptible Streptococcus agalactiae (Gr oup B Streptococci) Ceftriaxone (BENJAMIN) (BENJAMIN) INTERPRETATION Susceptible Streptococcus agalactiae (Gr oup B Streptococci) Clindamycin (BENJAMIN) INTERPRETATION Resistant Streptococcus agalactiae (Gr oup B Streptococci) Levofloxacin (BENJAMIN) INTERPRETATION Susceptible Streptococcus agalactiae (Gr oup B Streptococci) Linezolid (BENJAMIN) INTERPRETATION Susceptible Streptococcus agalactiae (Gr oup B Streptococci) Vancomycin (BENJAMIN) INTERPRETATION Susceptible us Crystal Murray MD LAB MICROBIOLOGY - GEN ERAL ORDERABLES Final Result [facility] Department [place] [address] documented in this encounter Visit Diagnoses Diagnosis Supervision of high-risk , unspecified trimester documented in this encounter Care Teams Regulatory Affairs Portfolio Leader Relationship Specialty [place] [id number] [address] [place] [address] PCP - General 07/04/19 [place] [id number] [facility] [address] [place] [address] 11/16/18 Ernie Shaw MD [address] [place] [address] Public Health Outreach Worker Obstetrics and Gynecology 06/10/20 documented as of this encounter
--- OUTSIDE RECORDS SUMMARY | 2024-02-24 20:02 | XMS_ITS | Encounter Summary ---
Author Organization [facility] Healthcare Address [address] [place] [address] Care Team Providers Care Group Managing Director Name Role Phone Huseyin Dangelo MD Unavailable [phone] Brian Mon MD Primary Care Provider + Ernie Shaw MD Unavailable [phone] Encounter Details Date Type Department Care Team (Late st Contact Info) Description 12/30/2020 11:19 AM CDT Anesthesia Event [address] [id number] Josue Downing MD [address] [place] [address] Shima Kasper MD PhD [address] [place] [address] Anesthesia Record Procedure Summary Procedure Name Responsible Anesthesiologist Anesthesia Start Time Anesthesia Stop Time SECTION (Abdomen) Josue Downing MD 12/30/20 1119 12/30/20 1327 Events Date Time Event Comment 12/30/2020 1119 An Start 1134 An Start Data 1134 In Room 1140 An Block Induction The patie nt was reevaluated immediately before moderate or deep sedation and before anesthesia induction. 1148 Spinal Placed 1148 Left Uterine Displacement 1152 Anesthesia Ready 1207 Proc Start 1213 Uterine Incision 1304 Quick Note Patient trembli ng leading to poor pulse oximetry reading. 1311 Proc Fin 1321 an stop data 1321 Out of Room 1327 Handoff to RN I completed my handoff to the receiving nurse during which we: 1. Patient identified 2. Responsible provider identified 3. Pertinent medical history reviewed 4. Procedure type and surgical course discussed 5. Intraoperative anesthetic management and any significant issues discussed 6. Expectations and concerns for postop period discussed 7. Questions solicited from receiving nurse 8. Patient disposition at the time of handoff: PACU 1327 An Stop Meds Name Total fentaNYL 15 mcg bupivacaine 0.75 %-dextrose 8.25 % PF 1. 6 mL phenylephrine infusion 3.96 mg oxytocin 3 Units oxytocin (PITOCIN) 30 Units in Lactated Ringer's (LR) 500 mL (0.06 Units/mL) infusion 12.45 Units ketorolac 30 mg ondansetron PF (ZOFRAN) 2 mg/mL injectio n 4 mg famotidine PF 20 mg morphine (PF) 1 mg/ml 0.1 mg clindamycin 900 mg 900 mg gentamicin (GARAMYCIN) 130 m g in sodium chloride 0.9% 13 mL (10 mg/mL) syringe 130 mg midazolam PF 1 mg/mL 2 mg phenylephrine 1 mg/10 mL inj (100 mcg/mL ) 400 mcg methylergonovine 0.2 mg tranexamic acid 1,000 mg diphenhydrAMINE 12.5 mg albumin human bottle 5 % 250 mL * Agents Name O2% N2O * Blood No blood administrations on file. Lines, Drains, and Airways Type Details Placement Removal RETIRED Surgical Site 12/30/20; 0759; Abdomen; 01/29/24 (Retired LDA, Removed/Completed by [employer] with LDA Utility); 1213 (Retired LDA, Removed/Completed by [employer] with LDA Utility) 12/30/20 0759 by Nicole Johnson RN 01/29/24 1213 by Discharge Provider, Automatic Peripheral IV Placement Date: 12/30/20; Placement Time: 1006; Catheter Size: 18 G; Orientation: Distal, Left, Posterior; Location: Hand; Site Prep: Chlorhexidine; Inserted by: Najma Warren RN; Insertion Attempts: 1; Patient Tolerance: Tolerated well; Removal Date: 12/31/20; Removal Time: 1645; Removal Reason: Per protocol 12/30/20 1006 by Nicole Johnson RN 12/31/20 1645 by Breanna Osman RN Peripheral IV Placement Date: 12/30/20; Placement Time: 1010; Catheter Size: 18 G; Orientation: Anterior, Proximal, Right; Location: Forearm; Site Prep: Chlorhexidine; Inserted by: Najma Warren RN; Insertion Attempts: 1; Patient Tolerance: Tolerated well; Removal Date: 12/31/20; Removal Time: 1645; Removal Reason: Per protocol 12/30/20 1010 by Nicole Johnson RN 12/31/20 1645 by Breanna Osman RN Urethral Catheter Placement Date: 12/30/20; Placement Time: 1150; Inserted by: Nicole Johnson RN; Type: Double-lumen, Non-latex; Balloon Size: 10 mL; Urine Returned: Yes; Removal Date: 12/30/20; Removal Time: 1845; Removal Reason: Per protocol 12/30/20 1150 by Lisette Shukla RN 12/30/20 1845 by Breanna Osman RN documented in this encounter Social History Tobacco Use Types Packs/Day Years [...] and Family Not on file 01/01/2021 Attends [employer] Not on file 01/01 Active Member [...] Average Number of Drinks Not on file Q3: How often do you have si x or more drinks on one occasion? Never 12/30/2020 Overall Financial Resource Strain (CARDIA) Answe r [...] a long term (including now)? 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 Not on file Not on file Not on file documented as of this encounter OR Notes * Anesthesia Postprocedure Evaluation - Hilario Christensen MD - 01/03/2021 8:51 AM CST Patient: Carito Madison Procedure Summary Date: 12/30/20 Room / Location: [facility] ROOM 3 / [facility] L&D OR Anesthesia Start: 1119 Anesthesia Stop: 1327 Procedure: SECTION (N/A Abdomen) Diagnosis: Generalized anxiety disorder Marginal insertion of umbilical cord affecting management of mother in second trimester Placenta previa specified as without hemorrhage in second trimester Polyhydramnios in third trimester, not applicable or unspecified fetus Supervision of high-risk , unspecified trimester (Generalized anxiety disorder [F41.1]) (Marginal insertion of umbilical cord affecting management of mother in second trimester [O43.192]) (Placenta previa specified as without hemorrhage in second trimester [O44.02]) (Polyhydramnios in third trimester, not applicable or unspecified fetus [O40.3XX0]) (Supervision of high-risk , unspecified trimester [O09.90]) Surgeons: Kristin Sorto MD Responsible Provider: Josue Downing MD Anesthesia Type: spinal ASA Status: 3 Anesthesia Type: spinal Last vitals BP 120/73 Pulse 99 Temp 36.9 ??C (98.4 ??F) (Oral) Resp 18 SpO2 96% Anesthesia Post Evaluation Patient location during evaluation: floor Patient participation: complete - patient participated Level of consciousness: fully awake Pain management: adequate Airway patency: adequate Cardiovascular status: acceptable Respiratory status: acceptable Hydration status: acceptable Pt is: normothermic Nausea/Vomiting status: none Comments: Patient denies fevers, rigors, nausea/vomiting, tingling/weakness/numbness, excessive pain/edema/drainage/erythema at needle puncture site. Patient taking PO, ambulating, urinating without Saucedo catheter. Puncture site examined - no appreciable induration, erythema, swelling, drainage. She reports having nightly chills- most likely hormonal (afebrile; however, on steroids), and occasional neck pain when laying flat only that improves when she sits up. Her pain is well controlled with her current pain regimen (APAP, Ibuprofen, and oxy). She denies any new vision changes, yet reports one brief episode of tinnitus that lasted for a couple of seconds yesterday. Patient was reassured that her Spinal was uneventful and counseled on signs/symptoms of epidural abscess/hematoma and post dural puncture headache. Patient advised to seek immediate medical attentionshould she appreciate any of these. Patient voices understanding. No complications documented. Cosigned by Anthony Harvey MD at 01/04/2021 7:19 AM PICKLE MAKER LE MAKER LE MAKER LE MAKER LE MAKER * Anesthesia Procedure Notes - Otf Blackmon MD - 12/30/2020 11:54 AM CDT Associated Order(s): Spinal Block Spinal Block Patient location: OR Reason for block: primary anesthetic Staff: Supervising anesthesiologist: Josue Downing MD Placed by: Resident: Otf Blackmon MD Procedure prep: Preprocedure checklist: patient identified, procedure contraindications assessed, site marked, procedure consent, surgical consent, IV checked, risks, benefits and alternatives discussed, monitors and equipment checked and timeout performed Patient position: sitting Procedure performed while patient: awake Monitoring: ECG, oximetry and blood pressure Prep solution: chlorhexadine/alcohol PPE: provider hat/mask, sterile gloves and sterile drape Skin infiltrated with lidocaine 1%: yes Spinal: Approach: midline Introducer used: yes Ultrasound assisted: yes Location: L4-5 Spinal injection: CSF demonstrated, no aspiration of heme and no paresthesias noted Number of attempts: 2 Spinal Needle: Needle type: Ariella Needle gauge: 27 G Needle length: 5 cm Assessment: Sensory deficit - left: T6 Sensory deficit - right: T6 Events: patient tolerated procedure well with no complications * Anesthesia Preprocedure Evaluation - Josue Downing MD - 12/30/2020 11:03 AM CDT Images from the original note were not included. Anesthesia Evaluation Carito Madison is a 30 y.o. female Procedure(s): SECTION Pre-Op Diagnosis Codes: * Generalized anxiety disorder [F41.1] * Marginal insertion of umbilical cord affecting management of mother in second trimester [O43.192] * Placenta previa specified as without hemorrhage in second trimester [O44.02] * Polyhydramnios in third trimester, not applicable or unspecified fetus [O40.3XX0] * Supervision of high-risk , unspecified trimester [O09.90] HISTORY Past Medical History Information obtained from: patient and chart. Neurological + Seizures + Neuromuscular disease Respiratory + Asthma Hepatic / Heme + Liver disease + History of anemia Renal / + Renal disease Musculoskeletal/Pain Pertinent negatives: chronic pain Endocrine / Other + Rheumatological disease Functional Capacity Functional capacity: 4-6 METs Functional capacity limited by a non-cardiovascular, non-pulmonary condition. Day of Surgery assessments + Possibility of assessed - known to be . Review of Systems Pertinent negatives: productive cough; recent cold/flu; fever; orthopnea; pedal edema; Sickle Cell disease/trait; previous transfusion; easy bruising; bleeding problems; muscle weakness; chronic pain; vision loss; heartburn; diarrhea; dentures/partials and diaphoresis Patient Active Problem List Diagnosis ??? Laceration of flexor muscle, fascia and tendon of right little finger at wrist and hand level, initial encounter ??? Cough ??? Lupus (CMS/HCC) (HCC) ??? Miscarriage ??? Tachycardia ??? Liver lesion ??? BMI 29.0-29.9,adult ??? Epilepsy undetermined as to focal or generalized (CMS/HCC) (HCC) ??? Microcytic anemia ??? Joint pain ??? Anti-[employer] PL[employer] WORKER antibodies present ??? Adrenal insufficiency (CMS/HCC) (HCC) ??? Bilateral chronic serous otitis media ??? Right carpal tunnel syndrome ??? Secondary adrenal insufficiency (CMS/HCC) (HCC) ??? Supervision of high-risk , unspecified trimester ??? Generalized anxiety disorder ??? Attention deficit hyperactivity disorder (ADHD), combined type ??? Marginal insertion of umbilical cord affecting management of mother in second trimester ??? Placenta previa ??? Polyhydramnios in third trimester, not applicable or unspecified fetus ??? Rectal bleeding ??? Anemia during in third trimester ??? delivery Past Medical History: Diagnosis Date ??? Anemia [...] median nerve repair, allograft nerve wrap application OB History 3 Para 0 Term 0 AB 2 Living SAB 2 TAB Ectopic Multiple Live Births 0 Allergies Allergen Reactions ??? Macrobid [Nitrofurantoin Monohyd/M-Cryst] [...] bactrim because of lupus ??? Venlafaxine Itching Taking? Last Dose Start Date End Date Provider al & mag hydroxide with xuwhwbuhpwx-dgalixdhafhcpio-vhlenesgv (MAGIC MOUTHWASH) suspension 1-1-1 12/09/20 -- Carolina Delarosa MD Swish and swallow 10 mL every 4 (four) hours as needed (oral ulcers) Patient not taking: Reported on 12/27/2020 aspirin 81 mg enteric coated tablet -- -- Provider, MD Isis cyclobenzaprine (FLEXERIL) 5 mg tablet 12/18/20 -- Anneliese Beckman NP Take 1 tablet (5 mg total) by mouth 2 (two) times a day as needed for muscle spasms Patient not taking: Reported on 12/27/2020 ferrous gluconate (ferrous gluconate) 324 mg (37.5 mg of elemental iron) tablet 11/10/20 -- Latha Serrano MD Take 1 tablet (324 mg total) by mouth 3 (three) times a day hydrOXYchloroQUINE (PLAQUENIL) 200 mg tablet 09/30/20 -- Carolina Delarosa MD Take 2 tablets (400 mg total) by mouth daily Notes: Our office no longer accept paper fax request. Please send electronic request or contact [employer]. omeprazole (PriLOSEC) 20 mg capsule 06/21/19 -- Isis Sheffield MD predniSONE (DELTASONE) 5 mg tablet 10/23/20 -- Francois Fernandez MD TAKE 2 TABLETS(10 MG) BY MOUTH DAILY vit no.[id number]-[id number] (Classic ) 28 mg iron- 800 mcg tablet -- -- Isis Sheffield MD sertraline (ZOLOFT) 25 mg tablet 10/18/20 -- Isis Sheffield MD valACYclovir (VALTREX) 500 mg tablet 12/03/19 -- Isis Sheffield MD Current Facility-Administered Medications: ??? ceFAZolin (ANCEF) 2,000 mg/20 mL in sterile water (premix) 2,000 mg, 2,000 mg, intravenous, Once preop for OB ONLY ??? hydrocortisone (Solu-CORTEF) preservative free injection 100 mg, 100 mg, intravenous, Once ??? hydrOXYchloroQUINE (PLAQUENIL) tablet 400 mg, 400 mg, oral, Daily ??? Lactated Ringer's (LR) bolus 1,000 mL, 1,000 mL, intravenous, TID PRN ??? predniSONE (DELTASONE) tablet 7.5 mg, 7.5 mg, oral, Daily ??? sertraline (ZOLOFT) tablet 50 mg, 50 mg, oral, Nightly ??? sodium chloride 0.9% flush 0.5-20 mL, 0.5-20 mL, intra-catheter, Q8H YOSEPH ??? sodium chloride 0.9% flush 0.5-20 mL, 0.5-20 mL, intra-catheter, PRN Social History Tobacco Use Smoking Status Former Smoker ??? Quit date: 12/28/2018 ??? Years since quittin.0 Smokeless Tobacco Never Used Substance and Sexual Activity Alcohol Use Yes Comment: occasionally Substance and Sexual Activity Drug Use Not Currently ??? Types: Marijuana Family History Problem Relation Age of Onset ??? Gout Mother ??? Diabetes Mother ??? Hypertension Mother ??? Heart disease Father ??? Stroke Father ??? Colon cancer Other Vitals: 12/30/20 1030 12/30/20 1035 12/30/20 1040 BP: Pulse: 114 112 122 Resp: Temp: SpO2: 98% 98% 96% PT: No results found for requested labs within last 720 hours. INR: No results found for requested labs within last 720 hours. APTT: No results found for requested labs within last 720 hours. Hgb A1C: No results found for requested labs within last 720 hours. CBC RBC: 12/29/2020: 4.20 M/cumm RDW: No results found for requested labs within last 720 hours. MCHC: 12/29/2020: 32.4 g/dL MCH: 12/29/2020: 29.5 pg MCV: 12/29/2020: 91.2 fL Hct: 12/29/2020: 38.3 % Hgb: 12/29/2020: 12.4 g/dL WBC: 12/29/2020: 12.5 K/cumm (H) MPV: 12/29/2020: 10.1 fL Platelets: 12/29/2020: 217 K/cumm RDW CV: 12/29/2020: 18.7 % (H) RDW Sd: 12/29/2020: 62.1 fL (H) BMP Glucose: 12/29/2020: 100 mg/dL Calcium: 12/29/2020: 9.5 mg/dL Sodium: 12/29/2020: 137 mmol/L Potassium: 12/29/2020: 3.8 mmol/L CO2: 12/29/2020: 18 mmol/L (L) Chloride: 12/29/2020: 103 mmol/L BUN: 12/29/2020: 5 mg/dL (L) Creatinine: 12/29/2020: 0.45 mg/dL (L) STOP-Bang Total Score: 0 DOS Physical Exam Medical history, medications, and allergies reviewed. Attestation: This PAT evaluation 12/30/2020. Airway Exam: Mallampati: I Cervical ROM: FROM TM distance: 3.5 Jaw ROM: full Cardiovascular Exam: Rate: regular Rhythm: regular Pulmonary Exam: LCTA, bilat Anesthesia Plan ASA 3 My patient is approved for the Anesthesia Controlled Medication protocol when under care of a CONSULTING PSYCHOLOGIST Planned anesthesia: Spinal Induction: Induction: intravenous. Postoperative Plan: No plan for postoperative opioid use. Patient's planned disposition post procedure is Floor. Informed Consent: Discussed plan with resident. Anesthesia plan and risks discussed with patient and spouse. Plan and Consent Comments: Discussed risks, benefits, alternatives to neuraxial anesthesia, including but not limited to PDPH,risk of prolonged or permanent numbness/weakness/paralysis, nausea, aspiration, bleeding, infection, possible need to convert to GETA. Pt voiced understanding and acceptance of risks and a desire to proceed with labor neuraxial anesthesia. Consent and Attending signature: I and/or my designee have discussed the anesthesia plan, benefits, possible alternatives, parental presence at time of induction (if indicated), and clinically relevant risks that may include dental injury, unintentional awareness, and/or other complications. The patient and/or parent/legal guardian understand, and agree to proceed. All questions answered. documented in this encounter Plan of Treatment Not on file documented as of this encounter Procedures Procedure Name Priority Date/Time Associated Diagnosis Comments ANESTHESIA SPINAL BLOCK Routine 12/30/2020 11:54 AM CDT documented in this encounter Results * Spinal Block (12/30/2020 11:54 AM CDT) Narrative Otf Blackmon MD - 12/30/2020 11:54 AM CDT Otf Blackmon MD ? 12/30/2020 11:56 AM Spinal Block Patient location: OR Reason for block: primary anesthetic Staff: Supervising anesthesiologist: Josue Downing MD Placed by: Resident: Otf Blackmon MD Procedure prep: Preprocedure checklist: patient identified, procedure contraindications assessed, site marked, procedure consent, surgical consent, IV checked, risks, benefits and alternatives discussed, monitors and equipment checked and timeout performed Patient position: sitting Procedure performed while patient: awake Monitoring: ECG, oximetry and blood pressure Prep solution: chlorhexadine/alcohol PPE: provider hat/mask, sterile gloves and sterile drape Skin infiltrated with lidocaine 1%: yes Spinal: Approach: midline Introducer used: yes Ultrasound assisted: yes Location: L4-5 Spinal injection: CSF demonstrated, no aspiration of heme and no paresthesias noted Number of attempts: 2 Spinal Needle: Needle type: Ariella Needle gauge: 27 G Needle length: 5 cm Assessment: Sensory deficit - left: T6 Sensory deficit - right: T6 Events: patient tolerated procedure well with no complications Josue Downing MD ANESTHESIA ORDERABLES Final R esult documented in this encounter Visit Diagnoses Not on filedocumented in this encounter Administered Medications Inactive Administered Medications - up to 3 most recent administrations Medication Order MAR Action Action Date Dose Rate Site albumin 5 % bottle intravenous, Continuous PRN, Starting on Rachel 12/30/20 at 1227, Anesthesia Intra-op New Bag 12/30/2020 12:27 PM CDT bupivacaine 0.75% (MARCAINE SPINAL) preservative free injection in dextrose intrathecal, As needed, Starting on Rachel 12/30/20 at 1148, Anesthesia Intra-op, Indications: Spinal AnesthesiaIndications:Spinal Anesthesia Given 12/30/2020 11:48 AM CDT 1.6 mL clindamycin (CLEOCIN) 900 mg/50 mL in sodium chloride 0.9% (premix) piggyback intravenous, Administer over 30 Minutes, As needed, Starting on Rachel 12/30/20 at 1141, Anesthesia Intra-op Given 12/30/2020 11:41 AM CDT 900 mg diphenhydrAMINE (BENADRYL) injection intravenous, Administer over 2 Minutes, As needed, Starting on Rachel 12/30/20 at 1233, Anesthesia Intra-op Given 12/30/2020 12:33 PM CDT 12.5 mg famotidine (PEPCID) injection intravenous, Administer over 2 Minutes, As needed, Starting on Rachel 12/30/20 at 1119, Anesthesia Intra-op Given 12/30/2020 11:19 AM CDT 20 mg fentaNYL (SUBLIMAZE) preservative free injection intrathecal, As needed, Starting on Rachel 12/30/20 at 1148, Anesthesia Intra-op Given 12/30/2020 11:48 AM CDT 15 mcg gentamicin (GARAMYCIN) 130 mg in sodium chloride 0.9% 13 mL (10 mg/mL) syringe 130 mg (rounded from 130.8 mg = 1.5 mg/kg ? 87.2 kg), intravenous, Administer over 30 Minutes, Once preop for OB ONLY, On Rachel 12/30/20 at 1230, For 1 dose, L&D Pre-Delivery, Indications: Prophylaxis, SurgicalIndications:Prophylaxis, Surgical New Bag 12/30/2020 11:49 AM CDT 130 mg ketorolac (TORADOL) injection intravenous, As needed, Starting on Rachel 12/30/20 at 1308, Anesthesia Intra-op Given 12/30/2020 1:08 PM CDT 30 mg methylergonovine (METHERGINE) injection intramuscular, As needed, Starting on Rachel 12/30/20 at 1220, Anesthesia Intra-op Given 12/30/2020 12:20 PM CDT 0.2 mg midazolam (VERSED) 1 mg/mL preservative free injection intravenous, Administer over 2 Minutes, As needed, Starting on Rachel 12/30/20 at 1151, Anesthesia Intra-op Given 12/30/2020 12:32 PM CDT 0.5 mg Given 12/30/2020 12:30 PM CDT 0.5 mg Given 12/30/2020 11:51 AM CDT 1 mg morphine preservative free injection intrathecal, Administer over 4 Minutes, As needed, Starting on Rachel 12/30/20 at 1148, Anesthesia Intra-op Given 12/30/2020 11:48 AM CDT 0.1 mg ondansetron (ZOFRAN) injection intravenous, Administer over 2 Minutes, As needed, Starting on Rachel 12/30/20 at 1119, Anesthesia Intra-op Given 12/30/2020 11:19 AM CDT 4 mg oxytocin (PITOCIN) 30 Units in Lactated Ringer's (LR) 500 mL (0.06 Units/mL) infusion intravenous, Continuous PRN, Starting on Rachel 12/30/20 at 1216, Anesthesia Intra-op Rate/Dose Change 12/30/2020 12:28 PM CDT 9 Units/hr 150 mL/hr New Bag 12/30/2020 12:16 PM CDT 18 Units/hr 300 mL/hr oxytocin (PITOCIN) injection intravenous, As needed, Starting on Rachel 12/30/20 at 1216, Anesthesia Intra-op Given 12/30/2020 12:16 PM CDT 3 Unit s phenylephrine (MARISOL-SYNEPHRINE) 1 mg/10 mL (100 mcg/mL) in sodium chloride 0.9% (premix) intravenous, As needed, Starting on Rachel 12/30/20 at 1202, Anesthesia Intra-op Given 12/30/2020 1:00 PM CDT 100 mcg Given 12/30/2020 12:54 PM CDT 100 mcg Given 12/30/2020 12:30 PM CDT 100 mcg phenylephrine (MARISOL-SYNEPHRINE) 5 mg/50 mL (100 mcg/mL) in sodium chloride 0.9% (premix) intravenous, Continuous PRN, Starting on Rachel 12/30/20 at 1149, Anesthesia Intra-op Rate/Dose Change 12/30/2020 12:38 PM CDT 0.2 mcg/kg/min 10.464 mL/hr Rate/Dose Change 12/30/2020 12:35 PM CDT 0.4 mcg/kg/min 20 .928 mL/hr Rate/Dose Change 12/30/2020 12:32 PM CDT 0.6 mcg/kg/min 31 .392 mL/hr tranexamic acid (CYKLOKAPRON) 1,000 mg/10 mL (100 mg/mL) solution intravenous, As needed, Starting on Rachel 12/30/20 at 1223, Anesthesia Intra-op Given 12/30/2020 12:23 PM CDT 1,000 mg documented in this encounter Care Teams Group Managing Director Relationship Specialty [place] [id number] [address] [place] [id number] PCP - General 07/04/19 [place] [address] [address] [place] [id number] 11/16/18 Ernie Shaw MD [address] [place] [address] [address] [place] [id number] Papier Mache Molder Obstetrics and Gynecology 06/10/20 documented as of this encounter
--- OUTSIDE RECORDS SUMMARY | 2024-02-24 20:02 | XMS_ITS | Encounter Summary ---
Author Organization [facility] Address [address] [place] [address] Phone Care Team Providers Care Inside Sales Advertising Executive Name Role Phone Hsueyin Dangelo MD Unavailable [phone] Brian Mon MD Primary Care Provider + Ernie Shaw MD Unavailable [phone] Encounter Details Date Type Department Care Team (Late st Contact Info) Description 01/06/2021 Telephone [facility] Obstetrics and Gynecology [address] [place] [id number] Shanell Hodge Social History Tobacco Use [...] * Telephone Encounter - Shanell Ribeiro - 01/06/2021 9:49 AM CST Patient called in she would like to be seen sooner, on 01/11 I scheduled her for 2:45 with Bere[place], per her request. She said she has knot under skin at incision area, She has questions on if she should remove steri strips, Can you please call her and then let me know if I should move her appointment. Thanks Shanell CTOR OF EPIDEMIOLOGY documented in this encounter Plan of Treatment Not on file documented as of this encounter Visit Diagnoses Not on filedocumented in this encounter Care Teams Inside Sales Advertising Executive Relationship Specialty [place] [address] [address] [facility] [address] [place] [address] PCP - General 07/04/19 [place] [address] [address] [facility] [address] [place] [address] 11/16/18 Ernie Shaw MD [address] [place] [address] [address] [place] [address] Manager Research And Development Obstetrics and Gynecology 06/10/20 documented as of this encounter
--- OUTSIDE RECORDS SUMMARY | 2024-02-24 20:02 | XMS_ITS | Encounter Summary ---
Author Organization [facility] Facility Care Team Providers Care Senior Wind Turbine Technician Name Role Phone Huseyin Dangelo MD Unavailable [phone] Brian Mon MD Primary Care Provider + Ernie Shaw MD Unavailable [phone] Encounter Details Date Type Department Care Team (Latest Contact Info) Description 01/04/2021 Encounter Social History Tobacco Use Types Packs/Day [...] and Family Not on file 01/01/2021 Attends [employer] Services Not on file 01/01 Active Member [...] a senior care (including now)? 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 Consult Note Patient name: Mayra Madison Mother's Name: Carito Madison Mother's Age: 28 y.o. /Para/: Father's Name: Date of : 12/30/2020 Time of : 12:15 PM Delivery Type: , Low Transverse Today's Date: 01/04/2021 Admission Date: 12/30/2020 12:48 PM Weight: 3300 g (7 lb 4.4 oz) Length: 19.094 Current Gestational Age: 36w 5d Patient Active Problem List Diagnosis ??? Premature infant of 36 weeks gestation ??? Shock, unspecified (CMS/HCC) ([facility]) ??? Hypotension due to blood loss ??? Respiratory failure in ??? At risk for sepsis in ??? encephalopathy ??? Adrenal insufficiency (CMS/HCC) ([facility]) Note: Pumped with mom. Reviewed pump setting. Mother stated she had been pumping on level 10 with her spectra pump and experiencing nipple pain. Advised her to decrease her pump settings to a comfortable level. Gel pads given. Support and encouragement offered. ESS CUTTER documented in this encounter Plan of Treatment Not on file documented as of this encounter Visit Diagnoses Not on filedocumented in this encounter Care Teams Senior Wind Turbine Technician Relationship Specialty [place] [address] [facility] [place] [address] PCP - General 07/04/19 [place] [address] [address] [facility] [place] [address] 11/16/18 Ernie Shaw MD [address] [place] [address] [address] [place] [address] Manager Lean Obstetrics and Gynecology 06/10/20 documented as of this encounter
--- OUTSIDE RECORDS SUMMARY | 2024-02-24 20:02 | XMS_ITS | Encounter Summary ---
Author Organization [facility] Facility Care Team Providers Care Radiosonde Operator Name Role Phone Huseyin Dangelo MD Unavailable [phone] Brian Mon MD Primary Care Provider + Ernie Shaw MD Unavailable Encounter Details Date Type Department Care Team (Latest Contact Info) Description 01/05/2021 Encounter Social History Tobacco Use Types Packs/Day [...] in a usp (including now)? 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 Spoke with mom at bedside. She reports labs WNL at [facility] and benign eval. On assessment, both breastswarm, but soft. No clogged ducts appreciated. Skin intact. Mom pumping 2-3 oz q 3. Mom aware to contact with further questions or concerns. SERVICE DERRICK WORKER documented in this encounter Plan of Treatment Not on file documented as of this encounter Visit Diagnoses Not on filedocumented in this encounter Care Teams Radiosonde Operator Relationship Specialty [place] [address] [place] [address] PCP - General 07/04/19 [place] [address] [place] [address] 11/16/18 Ernie Shaw MD [address] [place] [address] [address] [place] [address] Parenting Skills Instructor Obstetrics and Gynecology 06/10/20 documented as of this encounter
--- OUTSIDE RECORDS SUMMARY | 2024-02-24 20:02 | XMS_ITS | Encounter Summary ---
Author Organization [facility] Address [address] [place] [address] Phone Care Team Providers Care Assembly Line Upholsterer Name Role Phone Huseyin Dangelo MD Unavailable [phone] Brian Mon MD Primary Care Provider + Ernie Shaw MD Unavailable [phone] Reason for Visit * Reason Onset Date Comments medications and C/Section 12/27/2020 Encounter Details Date Type Department Care Team (Late st Contact Info) Description 12/27/2020 Telephone [facility] Maternal- Medicine [address] [facility] [address] [place] [address] Fariba Chin RN medications and C/Section Social History Tobacco Use Types Packs/Day Years Used Date Smoking Tobacco: Former Cigarettes Q uit: 12/28/2018 Smokeless Tobacco: Never Alcohol Use Standard Drinks/Week Comments Yes 0 (1 standard drink = 0.6 oz pur e alcohol) occasionally AUDIT-C Answer Date Recorded Q1: How often do you have a drink containing alc ohol? Never 12/16/2020 Average Number of Drinks Not on file 021 Q3: How often do you have si x or more drinks on one occasion? Never 12/16/2020 PHQ-2 Answer Date Recorded PHQ-2 Total Score [...] Telephone Encounter - Fariba Chin RN - 12/27/2020 1:17 PM CDT Carito called and left a message stating that she has some question regarding what medications she can take on the day of her surgery. I called her back and she stated that she take her prednisone and baby aspirin in the morning and can should she take them the morning of surgery. I discussed this with Dr. Sherwood and she said she can take both of them but if she feels more comfortable she doesn't have to take the aspirin. She verbalized understanding. She also wanted to know if she needed to reach out to the anesthesia team regarding her stress doseof steroids the day of delivery. I let her know that I will reach out to their coordinator and ask her to have the team reach out to her. She verbalized understanding. I have sent an email to Kellen Rush today. documented in this encounter Plan of Treatment Not on file documented as of this encounter Visit Diagnoses Not on filedocumented in this encounter Care Teams Assembly Line Upholsterer Relationship Specialty [place] [address] [facility] [address] PCP - General 07/04/19 [place] [address] [address] [place] [address] 11/16/18 Ernie Shaw MD [address] [place] [address] [address] [place] [address] External Grinder Tool Obstetrics and Gynecology 06/10/20 documented as of this encounter
--- OUTSIDE RECORDS SUMMARY | 2024-02-24 20:02 | XMS_ITS | Encounter Summary ---
Author Organization [facility] Healthcare Address [address] [place] [address] Care Team Providers Care Crystal Evaluator Name Role Phone Huseyin Dangelo MD Unavailable Brian Mon MD Primary Care Provider + Ernie Shaw MD Unavailable [phone] Reason for Visit * Reason Comments Scheduled Encounter Details Date Type Department Care Team (Late st Contact Info) Description 12/30/2020 11:30 AM CDT - 12/30/2020 1:35 PM CDT Surgery [address] [phone] Kristin Sorto MD [address] [id number] SECTION Surgery Details Date/Time Status Location OR Service Patient Class Case Cl ass Case Type Trauma Case? 12/30/2020 11:30 AM Posted [facility] L[facility]D OR L&D OR 3 Obstetrics / Gynecology Outpatient in Bed Elective Panel 1 Procedure LRB Anes Op Region Wound Class Comments SECTION N/A Choice Abdomen Class II - Cl ruben Contaminated Surgeon Surgeon Role Service Panel Neisha Arevalo MD Fellow Obstetrics / Business Systems Analyst ecology 1 Kristin Sorto MD Primary Obstetrics / Business Systems Analyst ecology 1 Zane Hayden MD Resident - Assisting Obstetr ics / Gynecology 1 Juana Ivory MD Resident - Assisting Obstetric s / Gynecology 1 Case Notes Complete placenta previa documented in this encounter Social History Tobacco [...] should administer the PHQ-9) 0 05/25/2019 Comments No Sex and Gender Information Value [...] Sign Reading Time Taken Comments Blood Pressure 110/56 12/30/2020 1:35 PM CDT Pulse 99 12/30/2020 1:35 PM CDT Temperature 36.7 ??C (98.1 ??F) 12/30/2020 1:25 PM CD T Respiratory Rate 16 12/30/2020 1:35 PM CDT Oxygen Saturation 90% 12/30/2020 1:35 PM CDT Inhaled Oxygen Concentration - - Weight 87.2 kg (192 lb 3.2 oz) 12/30/2020 9:41 A M CDT Height 160 cm (5' 2.99 ) 12/30/2020 9:41 AM CDT Body Mass Index 34.05 12/30/2020 9:41 AM CDT documented in this encounter Discharge Summaries * Juana Ivory MD - 01/03/2021 5:07 PM CST Inpatient Discharge Summary BRIEF OVERVIEW Admitting Provider: Kristin Sorto MD Discharge Provider: Kristin Sorto MD Primary Care Physician at Discharge: Brian Mon MD [phone] Admission Date: 12/30/2020 Discharge Date: 01/03/2021 Admission Location: [facility] Problems/Diagnoses: Active Problems: Polyhydramnios in third trimester, not applicable or unspecified fetus Supervision of high-risk , unspecified trimester Generalized anxiety disorder Marginal insertion of umbilical cord affecting management of mother in second trimester Placenta previa delivery Resolved Problems: No resolved hospital problems. DETAILS OF HOSPITAL STAY Presenting Problem/History of Present Illness: Carito Bowen is a 30 y.o. female at 36w0d gestation, dated by L=1 ?? Her is complicated by : ?? #Placenta previa: s/p 4 bleeds, inpatient admission recommended multiple times but patient declined. No ultrasound findings c/f PAS. For pCS. S/p BMZ x1 dose on 10/18. ?? #Lupus: on hydroxychloroquine 200 mg alternating with 400 mg every other day, prednisone 7.5mg daily. S/p normal testing. ?? #Adrenal insufficiency: 2/2 chronic steroid use. Delivery plan: IV infusion of hydrocortisone 200 mg/24 hours and 15 mg/daily of prednisone for following 48 hours. After that, can decrease the dose to 5 mg daily. ?? #MARIMAR: recently started on sertraline 50mg nightly ?? #BRIAN: s/p iron infusion ?? #Marginal cord insertion ?? #GBS positive ?? She feels well today, just anxious for surgery. Hospital Course: Carito Bowen is a 30 y.o. at 36w0d who presented to L&D for repeat section due to transverse presentation and anterior placenta previa. Her was complicated by lupus, adrenal insufficiency, MARIMAR, BRIAN, anterior placenta previa, transverse presentation and MCI . She underwent a primary Low Transverse Section via Pfannensteil. Delivery was complicated by post- hemorrhage which resolved quickly. See operative report for full details. The patient was transferred to . Her course was complicated by headache- assessed twice by anesthesia- see note . Prior to discharge, her pain was well controlled, she was voiding, passing gas, ambulating, and meeting all postoperative milestones. # Heme: PPH: EBL 1750 mL (due [...] nightly, PRN hydroxyzine, nightly PRN ramelteon. # BRIAN: s/p iron infusion, discharge on po Fe # CV/Pulm: Vital signs stable, within normal limits. # GI/: Tolerating PO. Adequate urine output, voiding spontaneously. # Pain: Controlled with above regimen. Headache assessed by anesthesia- do not think related to epidural. # Post DVT prophylaxis: The patient has the following MAJOR risk factors lupus and the following MINOR risk factors BMI 30-39, PPH (EBL >/= 1000 mL) and delivery. enoxaparin 40 mg daily ordered for VTE prophylaxis. # MOC: partner vasectomy- declines bridge s/p counseling # MOF: Active Issues Requiring Follow-up: none Test Results Pending at Discharge: none Operative Procedures Performed: Procedure(s): SECTION Other Procedures: none Pertinent Test Results: none Discharge Details Physical Exam at Discharge: Discharge Condition: good Pulse: 99 Resp: 18 BP: 120/73 Temp: 36.9 ??C (98.4 ??F) Weight: 192 lb 3.2 oz (87.2 kg) Pertinent Exam Findings at Discharge: none Discharge Disposition: Discharge to home or self care Code Status at Discharge: Full Code Discharge Instructions: See AVS Discharge Medications: Current Medications TAKE these medications acetaminophen 500 mg capsule Take 2 capsules (1,000 mg total) by mouth every 6 (six) hours For: pain al & mag hydroxide with ebbrcvdaudi-ymxslcaewokdefi-wmgehbckm (MAGIC MOUTHWASH) suspension 1-1-1 Swish and swallow 10 mL every 4 (four) hours as needed (oral ulcers) Classic 28 mg iron- 800 mcg tablet Take 1 tablet by mouth daily Generic drug: vit no.[id number]-[id number] cyclobenzaprine 5 mg tablet Take 1 tablet (5 mg total) by mouth 3 (three) times a day as needed for muscle spasms Commonly known as: FLEXERIL diphenhydrAMINE 25 mg capsule Take 1 tablet/capsule (25 mg total) by mouth nightly as needed for sleep Commonly known as: BENADRYL docusate sodium 100 mg capsule Take 1 capsule (100 mg total) by mouth 2 (two) times a day For: constipation, Stool Softener Commonly known as: COLACE ferrous gluconate 324 mg (37.5 mg of elemental iron) tablet Take 1 tablet (324 mg total) by mouth 3 (three) times a day hydrOXYchloroQUINE 200 mg tablet Take 2 tablets (400 mg total) by mouth daily Commonly known as: PLAQUENIL ibuprofen 600 mg tablet Take 1 tablet (600 mg total) by mouth every 6 (six) hours For: cramps Commonly known as: ADVIL,MOTRIN lidocaine 5 % Place 2 patches on the skin daily Remove & discard patch within 12 hours or as directed by MD. Commonly known as: LIDODERM oxyCODONE 5 mg immediate release tablet Take 1 tablet (5 mg total) by mouth every 4 (four) hours as needed for pain for up to 20 doses For: pain Commonly known as: ROXICODONE pantoprazole DR 40 mg EC tablet Take 1 tablet (40 mg total) by mouth daily For: Stress Ulcer Prophylaxis Commonly known as: PROTONIX PNV with rqvtrtv-sxoo-FY 27 mg iron- 1 mg tablet Take 1 tablet by mouth daily For: treatment to prevent vitamin deficiency predniSONE 2.5 mg tablet Take 3 tablets (7.5 mg) by mouth daily Commonly known as: DELTASONE ramelteon 8 mg tablet Take 1 tablet (8 mg total) by mouth nightly For: difficulty falling asleep Commonly known as: ROZEREM sertraline 25 mg tablet Commonly known as: ZOLOFT simethicone 80 mg chewable tablet Take 1 tablet (80 mg total) by mouth 4 (four) times a day as needed for flatulence For: gas Commonly known as: MYLICON Outpatient Follow-Up: Future Appointments Date Time Provider Department Center 01/11/2021 2:45 PM [facility]FM DIGITAL MARKETING OFFICER [facility] OB 01/13/2021 1:30 PM [facility] 01/17/2021 1:15 PM MFM DIGITAL MARKETING OFFICER [facility] OB 02/14/2021 1:00 PM MFM DIGITAL MARKETING OFFICER [facility] OB Contact Information for Follow-ups Brian Mon MD Specialty: Internal Medicine Relationship: PCP - [facility] [place] [address] Next Steps: Follow up Cosigned by Avelino Triplett MD at 01/10/2021 11:04 AM LEASE ATTENDANT E ATTENDANT E ATTENDANT documented in this encounter Discharge Instructions * Discharge Instructions* Maya Murillo NP - 01/03/2021 4:39 PM LEASE ATTENDANT .. Discharge Instructions - Section In order to minimize social contact during COVID19 precautions, your visit maybe over the phone. Please remember to wash your hands frequently, do not touch your face, and avoid anyone with feversor cough. Stay at home as much as possible and practice social distancing. COVID19 Precautions: * Wash your hands frequently * Do not touch your face * Avoid anyone with fevers or cough * DO NOT come to clinic or the hospital with mild cold or flu-like symptoms, first call our OB communication center at [phone]. * If you have SEVERE illness including persistent shortness of breath, high fever not responsive totylenol, or nausea and vomiting preventing you from adequately orally hydrating, then call your doctor or go to the ER. Call Your Doctor If: * You have a fever of 100.4 degrees or higher. * You have vaginal bleeding more than your normal menstrual period. * You are passing large blood clots (larger than an egg). * You have a strong foul odor coming from your vagina. * You have burning, pain or difficulty urinating. * Your incision has redness, drainage, bad odor, or if the incision separates. * You have nausea, vomiting or increased abdominal pain. * You have redness or pain in your calves, legs or inner thighs. * You have red, swollen painful breasts. * You have other questions or concerns. * You have a headache, difficulty breathing, pain in your upper abdomen, or changes in your vision. * You have decreased urine output. * Your level of consciousness changes. * If you have a blood pressure cuff at home, check your blood pressure once a day and write it down. Call your doctor if your blood pressure is greater than 160 (top number) or 110 (bottom number). Diet: * Follow your regular diet. * Maintain liquid intake of 8 -10 glasses per day. * For constipation - drink prune juice or take stool softener medication ordered by your doctor. Eat foods with fiber (examples - raisins, prunes, washed raw vegetables, whole wheat bread, and bran). Activity: * Do not put anything in your vagina for 6 weeks. NO douching, tampons or sexual intercourse. * Weakness and fatigue are common. * Limit activities and visitors and increase as energy levels return. Rest as often as possible. * Lift nothing heavier than 10 pounds for 2 weeks. * No driving for 1-2 weeks or while taking narcotics. * If you are not , milk will come in between the 3rd and 4th day . Wear tight support bra and use ice packs to relieve discomfort. Care Instructions: * You may shower or shampoo your hair. You may take a full bath about 2 weeks after delivery. * Keep incision clean and dry. Every day, gently wash your incision with mild soap and warm water and pat dry. * If you have steri strips, you may still shower. The steri strips may fall of on their own, but ifthey do not, remove them after 5 days. * If you have surya, please make an appointment with your doctor to have them removed in 10 days. Contraception: PARTNER VASECTOMY Vasectomy is successful in more than 99 percent of men. A second method of control is necessary until testing is done to confirm that there are no sperm in the semen. The sperm count is checked, usually three months after the procedure, to ensure that no sperm remain in the ejaculate. A man needs to have ejaculated at least 20 times after vasectomy to clear the ducts of sperm before the follow- up sperm count. A sperm count requires that the man give a semen sample. A man who continues to have sperm in the ejaculate requires a second sperm count, usually performed two months later. If the follow-up check shows sperm that do not move, there is a small chance that a partner may become . Another method of contraception should be continued until clearance is given by the doctor. LACTATIONAL AMENORRHEA can be an effective method to prevent if ALL of the following are true: 1) you are on demand, with at least 80% of feeds at the breast (not pumped breast milk orformula), 2) you have not gotten your first menstrual period after delivery, and 3) your baby is less than 6 months old. Ask your doctor about other methods of control if any of those things are no longer true. DESIRES CONDOMS / DECLINES CONTRACEPTION: You can get within 2 weeks of giving , though we recommend no sexual intercourse for at least 6 weeks. Condoms can be an effective method of control. However, other methods of control are better at preventing . Use a new condom every time you have sex. If you do not use a condom, or the condom breaks, you can use emergency contraceptive pills (Plan B) to preventpregnancy. You can get them at a pharmacy without a prescription. You can also get a prescription by calling your doctor. Emergency contraception works best if used right away. However, you can stilluse it within 5 days after unprotected sex. Feeding: : Follow unrestricted . Feed your baby based on baby's hunger cues (or atleast 8-12 feedings per 24 hours). Do NOT supplement unless instructed by Service Cashier. Call your Service Cashier if your baby has poor eating habits (examples: feedings decrease, no feedings in 6 hours, or infant spits up more than ?? of their feeding for 2 consecutive feedings). Once your baby is 5-6 days old, you should expect at least 5 wet diapers and 3 soiled diapers per day. Outpatient Follow Up: Every patient needs a visit. We are currently scheduling some in person and some telemedicine visits for your visits. We are trying to keep you safe and minimize social contact due to COVID19 precautions. A member of our team will reach out by phone to check in with you in the next 2-6 weeks. If you do not hear from our office please call your primary provider to set up either an in person or phone appointment. Thank you for understanding and remember to wash your hands and avoid anyone with fevers or cough. Stay at home as much as possible and practice socialdistancing. If you yourself develop fever >100.4F, a new cough, or shortness of breath please call our centralized OB communication center at [phone]. Do not come to the hospital or clinic until you speak with a provider. Contact Information for your primary OB: * [facility] - MFMMATERNAL MEDICINE - [id number] [facility] [place]. [place], [place] [address]Zhex to schedule an appointment in 2 and 6 weeks. Future Appointments Date Time Provider Department Center 01/13/2021 1:30 PM [facility] 01/17/2021 1:15 PM MFM DIGITAL MARKETING OFFICER [facility] 7 OB 02/14/2021 1:00 PM MFM DIGITAL MARKETING OFFICER [facility] 7 OB Discharge Medications: Take the following medications. Your medication list START taking these medications acetaminophen 500 mg capsule Take 2 capsules (1,000 mg total) by mouth every 6 (six) hours diphenhydrAMINE 25 mg capsule Take 1 tablet/capsule (25 mg total) by mouth nightly as needed for sleep Commonly known as: BENADRYL docusate sodium 100 mg capsule Take 1 capsule (100 mg total) by mouth 2 (two) times a day Commonly known as: COLACE ibuprofen 600 mg tablet Take 1 tablet (600 mg total) by mouth every 6 (six) hours Commonly known as: ADVIL,MOTRIN lidocaine 5 % Place 2 patches on the skin daily Remove & discard patch within 12 hours or as directed by MD. Commonly known as: LIDODERM oxyCODONE 5 mg immediate release tablet Take 1 tablet (5 mg total) by mouth every 4 (four) hours as needed for pain for up to 20 doses Commonly known as: ROXICODONE pantoprazole DR 40 mg EC tablet Take 1 tablet (40 mg total) by mouth daily Commonly known as: PROTONIX PNV with dxtmdme-iimr-OY 27 mg iron- 1 mg tablet Take 1 tablet by mouth daily Start taking on: January 04, 2021 ramelteon 8 mg tablet Take 1 tablet (8 mg total) by mouth nightly Commonly known as: ROZEREM simethicone 80 mg chewable tablet Take 1 tablet (80 mg total) by mouth 4 (four) times a day as needed for flatulence Commonly known as: MYLICON CHANGE how you take these medications cyclobenzaprine 5 mg tablet Take 1 tablet (5 mg total) by mouth 3 (three) times a day as needed for muscle spasms Commonly known as: FLEXERIL What changed: when to take this predniSONE 2.5 mg tablet Take 3 tablets (7.5 mg) by mouth daily Commonly known as: DELTASONE Start taking on: January 04, 2021 What changed: medication strength See the new instructions. CONTINUE taking these medications al & mag hydroxide with eiutwlnwhvx-fisqrvkvuhvpxvf-fvljjljpa (MAGIC MOUTHWASH) suspension 1-1-1 Swish and swallow 10 mL every 4 (four) hours as needed (oral ulcers) Classic 28 mg iron- 800 mcg tablet Generic drug: vit no.915-[id number] ferrous gluconate 324 mg (37.5 mg of elemental iron) tablet Take 1 tablet (324 mg total) by mouth 3 (three) times a day hydrOXYchloroQUINE 200 mg tablet Take 2 tablets (400 mg total) by mouth daily Commonly known as: PLAQUENIL sertraline 25 mg tablet Commonly known as: ZOLOFT STOP taking these medications aspirin 81 mg enteric coated tablet omeprazole 20 mg capsule Commonly known as: PriLOSEC valACYclovir 500 mg tablet Commonly known as: VALTREX E ATTENDANT documented in this encounter Medications at Time [...] 30 tablet 11 01/03/2021 3 PNV with becwrtm-djle-MV 27 mg iron- 1 mg tabletIndications :Vitamin Deficiency Prevention Take 1 tablet by mouth daily 30 tablet 1 01/04/2021 3 predniSONE (DELTASONE) 2.5 mg tablet Take 3 tablets (7.5 mg) by mouth daily 30 tablet 2 01/04/2021 2 vit no.450-tulr-ijtuw (Classic ) 28 mg iron- 800 mcg [...] Refills Last Filled Start Date End Date simethicone (MYLICON) 80 mg chewable tabletIndications: Flatulence Take 1 tablet (80 mg total) by mouth 4 (four) times a day as needed for flatulence 30 tablet 01/03/2021 3 ramelteon (ROZEREM) 8 mg tabletIndications: Sleep-Onset Insomnia Take 1 tablet (8 mg total) by mouth nightly 30 tablet 11 01/03/2021 1 PNV with dtzoceg-fxkt-YY 27 mg iron- 1 mg tabletIndications: Vitamin Deficiency Prevention Take 1 tablet by mouth daily 30 tablet 1 01/04/[address] (PROTONIX) 40 mg EC tabletIndications: Stress Ulcer Prophylaxis Take 1 tablet (40 mg total) by mouth daily 30 tablet 11 01/03/2021 3 oxyCODONE (ROXICODONE) 5 mg immediate release tabletIndications: Pain Take 1 tablet (5 mg total) by mouth every 4 (four) hours as needed for pain for up to 20 doses 20 tablet 01/03/2021 1 lidocaine (LIDODERM) 5 % Place 2 patches on the skin daily Remove & discard patch within 12 hours or as directed by . 60 patch 01/03/2021 1 ibuprofen (ADVIL,MOTRIN) 600 mg tabletIndications: Cramps Take 1 tablet (600 mg total) by mouth every 6 (six) hours 60 tablet 01/03/2021 1 docusate sodium (COLACE) 100 mg capsuleIndications :constipation,Stoo l Softener Take 1 capsule (100 mg total) by mouth 2 (two) times a day 60 capsule 01/03/2021 1 diphenhydrAMINE (BENADRYL) 25 mg capsule Take 1 tablet/capsule (25 mg total) by mouth nightly as needed for sleep 30 capsule 01/03/2021 1 acetaminophen 500 mg capsuleIndications :Pain Take 2 capsules (1,000 mg total) by mouth every 6 (six) hours 30 tablet 01/03/2021 3 predniSONE (DELTASONE) 2.5 mg tablet Take 3 tablets (7.5 mg) by mouth daily 30 tablet 2 01/04/2021 2 cyclobenzaprine (FLEXERIL) 5 mg tablet Take 1 tablet (5 mg total) by mouth 3 (three) times a day as needed for muscle spasms 30 tablet 01/03/2021 3 documented in this encounter Discharge Disposition Disposition Code Departure Means Destination Discharge to home or self care documented in this encounter Progress Notes * Juana Ivory MD - 01/03/2021 5:50 AM CST Post Progress Note Delivery Date/Time: 12/30/2020 at 12:15 PM Delivery method: , Low Transverse [251] Obstetrical/Medical Problems: Medical Conditions Diagnosis Laceration of flexor muscle, fascia and tendon of right little finger at wrist and hand level, initial encounter Cough Lupus (CMS/HCC) (HCC) Miscarriage Tachycardia Liver lesion BMI 29.0-29.9,adult Epilepsy undetermined as to focal or generalized (CMS/HCC) (HCC) Microcytic anemia Joint pain Anti-HUMAN RESOURCES DESIGNATE antibodies present Adrenal insufficiency (CMS/HCC) (HCC) Bilateral chronic serous otitis media Right carpal tunnel syndrome Secondary adrenal insufficiency (CMS/HCC) (HCC) Supervision of high-risk , unspecified trimester Generalized anxiety disorder Attention deficit hyperactivity disorder (ADHD), combined type Marginal insertion of umbilical cord affecting management of mother in second trimester Placenta previa Polyhydramnios in third trimester, not applicable or unspecified fetus Rectal bleeding Anemia during in third trimester delivery Subjective Flatus: Yes Pain: Well controlled Diet: Tolerating regular diet. Ambulating independently Voiding spontaneously Lochia less than menses No leg swelling or pain. Slept better last night. She is okay with discharge later today. Her baby is doing better and she has less anxiety. Scheduled Medications acetaminophen, 1,000 mg, oral, Q6H docusate sodium, 100 mg, oral, BID enoxaparin, 40 mg, subcutaneous, Daily-2100 hydrOXYchloroQUINE, 200 mg, oral, Daily ibuprofen, 600 mg, oral, Q6H lidocaine, 2 patch, transdermal, Daily viatmin, 1 tablet, oral, Daily predniSONE, 7.5 mg, oral, Daily ramelteon, 8 mg, oral, Nightly sertraline, 50 mg, oral, Daily PRN Medications cyclobenzaprine diphenhydrAMINE hydrocortisone hydrOXYzine ondansetron ODT OR ondansetron oxyCODONE simethicone sodium chloride 0.9% sterile water Vitals: Temp: [36.5 ??C (97.7 ??F)-36.9 ??C (98.42 ??F)] 36.9 ??C (98.4 ??F) Pulse: [80-103] 80 BP: (114-128)/(59-75) 115/66 Resp: [18] 18 SpO2: [98 %-100 %] 98 % No intake or output data in the 24 hours ending 01/03/21 0700 Physical Exam General: No acute distress. Cardiovascular: Regular rate and rhythm. Lungs: Non-labored. Abdomen: Soft, non-distended, non-tender to palpation. Fundus below umbilicus. Incision c/d/i Extremities: Warm and well-perfused. Neuro: Globally intact Recent Labs Lab Units 12/31/20 0514 12/29/20 1120 WBC K/cumm 14.9* 12.5* HEMOGLOBIN g/dL 9.1* 12.4 HEMATOCRIT % 28.2* 38.3 PLATELETS K/cumm 186 217 CREATININE mg/dL -- 0.45* AST Units/L -- 24 ALT Units/L -- 17 GLUCOSE mg/dL -- 100 Labs: Lab Results Component Value Date ABORH A Positive 12/30/2020 IDCOOMB Negative 12/30/2020 [id number] Nonreactive 12/06/2020 LABRPR Nonreactive 12/30/2020 Assessment and Plan 30 y.o. POD#4 LTCS due to placenta previa and transverse presentation Problem delivery # ID: Afebrile. No signs/symptoms of infection. [...] nightly, PRN hydroxyzine, nightly PRN ramelteon. # BRIAN: s/p iron infusion, discharge on po Fe [...] not sent. Plan for discharge later today Juana Ivory MD 01/03/21 I have read and reviewed the above documentation and agree with the following additions or edits: PPH, resolved Lupus, continue hydroxychloroquine and prednisone, no s/sx of flare at this time Adrenal insufficiency 2/2 chronic steroids continue prednisone 7.5 daily MARIMAR on sertraline and hydroxyzine Brian for PO FeSO4 MOC is a vasectomy COVID vax'ed DC today Zane Hayden MD PGY-4 (ALARM INVESTIGATOR) [phone] Cosigned by Aissatou Espinoza MD at 01/03/2021 10:14 AM LEASE ATTENDANT E ATTENDANT E ATTENDANT E ATTENDANT E ATTENDANT Associated attestation - Aissatou Espinoza MD - 01/03/2021 10:14 AM LEASE ATTENDANT I have seen and examined the patient on 01/03/21. I agree with the findings and plan of care as documented in the resident's/fellow's note.. Patient reports bad headache today. Discussed differentialof headache including spinal headache, allergies, pending flare. Patient would like to treat allergies first, will assess if related to position over morning. She may request to check labs later today if not better as neck pain can be sign of flare for her. * Lexi Gates MD - 01/02/2021 11:35 AM CST Update MD to bedside with attending (). Discussed the following concerns with patient: ?? [place] off and disoriented this AM, more tired than usual, falling asleep after taking flexeril, ibuprofen, and oxycodone. First time taking flexeril in the AM. Discussed likely secondary to flexeril, as it can make people feel groggy and out of it. Will plan to change timing of flexeril. ?? Bruising. Patient with two small bruises on rib and upper arm. Provided reassurance, likely due to the repositioning. ?? Prednisone dosing. Concerned about plan to transition to 5mg as she have never been on that low of a dose. Shared-decision making to transition instead to 7.5mg daily. Will update rn security. ?? Posterior headache/pressure with laying back. Declined compazine or regalan for headache. Calledanesthesia, will evaluate patient. ?? Concern for bleeding. Orthostats within normal limits with normal vital signs with soft, reassuring abdomen. No concern for acute blood loss. Provided reassurance about vaginal bleeding. Lexi Gates MD E ATTENDANT * Juana Ivory MD - 01/02/2021 5:19 AM CST Post Progress Note Delivery Date/Time: 12/30/2020 at 12:15 PM Delivery method: , Low Transverse [251] Obstetrical/Medical Problems: Medical Conditions Diagnosis ??? Laceration of flexor muscle, fascia and tendon of right little finger at wrist and hand level, initial encounter ??? Cough ??? Lupus (CMS/HCC) (HCC) ??? Miscarriage ??? Tachycardia ??? Liver lesion ??? BMI 29.0-29.9,adult ??? Epilepsy undetermined as to focal or generalized (CMS/HCC) (HCC) ??? Microcytic anemia ??? Joint pain ??? Anti-HUMAN RESOURCES DESIGNATE antibodies present ??? Adrenal insufficiency (CMS/HCC) (HCC) [...] Anemia during in third trimester ??? delivery Subjective Flatus: Yes, no longer having diarrhea after holding bowel regimen Pain: cramping and sore back from being in bed, controlled on current regimen Diet: Tolerating regular diet. Ambulating independently Voiding spontaneously Lochia less than menses Scheduled Medications acetaminophen, 1,000 mg, oral, Q6H [Held by Provider] docusate sodium, 100 mg, oral, BID enoxaparin, 40 mg, subcutaneous, Daily-2100 hydrOXYchloroQUINE, 200 mg, oral, Daily ibuprofen, 600 mg, oral, Q6H lidocaine, 2 patch, transdermal, Daily viatmin, 1 tablet, oral, Daily predniSONE, 10 mg, oral, Once [START ON 01/03/2021] predniSONE, 5 mg, oral, Daily predniSONE, 5 mg, oral, Once ramelteon, 8 mg, oral, Nightly sertraline, 25 mg, oral, QAM sertraline, 50 mg, oral, Daily PRN Medications cyclobenzaprine ??? diphenhydrAMINE ??? hydrocortisone ??? hydrOXYzine ??? ondansetron ODT OR ondansetron ??? oxyCODONE ??? [Held by Provider] polyethylene glycol ??? simethicone ??? sodium chloride 0.9% ??? sterile water Vitals: Temp: [36.7 ??C (98.1 ??F)-37.1 ??C (98.8 ??F)] 36.9 ??C (98.4 ??F) Pulse: [57-91] 57 BP: (114-129)/(52-71) 114/52 Resp: [16-18] 18 SpO2: [99 %-100 %] 100 % No intake or output data in the 24 hours ending 01/02/21 0617 Physical Exam General: No acute distress. Cardiovascular: Regular rate and rhythm. Lungs: Non-labored. Abdomen: Soft, non-distended, appropriately tender to palpation. Fundus below umbilicus. Incision c/d/i Extremities: Warm and well-perfused. Neuro: Globally intact Recent Labs Lab Units 12/31/20 0514 12/29/20 1120 WBC K/cumm 14.9* 12.5* HEMOGLOBIN g/dL 9.1* 12.4 HEMATOCRIT % 28.2* 38.3 PLATELETS K/cumm 186 217 CREATININE mg/dL -- 0.45* AST Units/L -- 24 ALT Units/L -- 17 GLUCOSE mg/dL -- 100 Labs: Lab Results Component Value Date ABORH A Positive 12/30/2020 IDCOOMB Negative 12/30/2020 [id number] Nonreactive 12/06/2020 LABRPR Nonreactive 12/30/2020 Assessment and Plan 30 y.o. POD#3 LTCS due to placenta previa and transverse presentation Problem delivery # ID: Afebrile. No signs/symptoms of infection. [...] mg/daily of prednisone for following 48 hours. After that, can decrease the dose to 5 mg daily. # MARIMAR: On sertraline 50mg nightly, PRN hydroxyzine, nightly PRN ramelteon. # BRIAN: s/p iron infusion, discharge on po Fe [...] # Disposition: Follow up task not sent. Continue routine postoperative care. Juana Ivory MD 01/02/21 I have reviewed the above and agree with documentation. On prednisone 15 mg today and transition to5 mg tomorrow for adrenal insufficiency. Otherwise continue routine PP care. Sherri Garcias MD 01/02/2021 Cosigned by Latha Srerano MD at 01/03/2021 9:43 PM LEASE ATTENDANT E ATTENDANT E ATTENDANT E ATTENDANT Associated attestation - Latha Serrano MD - 01/03/2021 9:43 PM LEASE ATTENDANT I saw and examined the patient on 01/02/21. I agree with the findings and plan of care as documentedin this note. All questions answered. Latha Serrano MD MS Maternal- Medicine * Elise Riley LCSW - 01/01/2021 12:12 PM CDT Reason for Admission MOB (Carito Bowen 1990) was admitted on 12/30/2020 for SUPERVISION OF HIGH RISK ,UNSPECIFIED, UNSPECIFIED TRIMESTER. Social Work referral for hx of anxiety; nicu admission. 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 Pediatric follow-up to be scheduled. Medical insurance coverage is through [facility] [employer]. Information Baby girl was born on 12/30/2020 at EGA 36 weeks and has been named Mayra. Delivery was , Low Transverse . weighed 7lbs 4oz at delivery. Lacassine will be breast fed. This is mother's 1st child. Mayra was [facility] to [facility] NICU at delivery. Social History Current address is [address] [place] [id number], where she lives with her spouse. Currently [phone] (home) is the best phone number for future contact. Father of the baby, Britta, can be reached at [phone]. FOB has been present and supportive at the hospital. Mood and Anxiety Carito Bowen describes her mood during as anxious with increasing panic attacks during . Currently, mother of the baby feels very calm about returning home with the . ROSAURA and MD meet with Carito Bowen at bedside and discuss/normalize an increase in stress surrounding prior trauma and in NICU. Currently prescribed 50mg of Zoloft, plan to increase to 75mg (split 25mg AM/50mg HS). ROSAURA provides list of psyhiatrist and therapist in the [facility] that accept patient insurance. Social Work and Carito Bowen discussed the signs and symptoms of Mood and Anxiety Disorder. Social Work discussed and normalized increase in emotions and the importance of self-care. Social Work encouraged new mom to take time for herself and utilize supports available. Available support systems reviewed, including: medication, spouse. Warning signs reviewed and MOB encouraged to seek medical and mental health treatment if symptoms arise including possible medication management. Resources for counseling provided in Mother/Baby folder and MOB encouraged to contact if needed. MOBengaged in conversation and demonstrates knowledge. [facility] reviewed as mental health resource as well. Resources Provided and Goals Addressed Social Determinants of Health: Family asks about WIC and SW provided information about [place]IC. Family inquires about [facility], but does not qualify as they do not live 50+ miles from hospital. Strengths MOB is open and receptive to Social Work intervention, education, and resources. Safe Discharge Plan Mother bonding well with . Preparations have been made at home for and social supports are available. Follow-up medical care has been arranged. Family is connected to resources and will utilize services as needed. There are no concerns for a safe discharge for with family. Social Work will follow for support and additional needs should they arise. VESNA Smith, AUTO TOP MECH[employer]IC [facility] [employer] [facility] * Juana Ivory MD - 01/01/2021 6:44 AM CDT Post Progress Note Delivery Date/Time: 12/30/2020 at 12:15 PM Delivery method: , Low Transverse [251] Obstetrical/Medical Problems: Medical Conditions Diagnosis ??? Laceration of flexor muscle, fascia and tendon of right little finger at wrist and hand level, initial encounter ??? Cough ??? Lupus (CMS/HCC) (HCC) ??? Miscarriage ??? Tachycardia ??? Liver lesion ??? BMI 29.0-29.9,adult ??? Epilepsy undetermined as to focal or generalized (CMS/HCC) (HCC) ??? Microcytic anemia ??? Joint pain ??? Anti-HUMAN RESOURCES DESIGNATE antibodies present ??? Adrenal insufficiency (CMS/HCC) (HCC) [...] Anemia during in third trimester ??? delivery Subjective Flatus: Yes, requested a lot of stool softeners yesterday to the point of having watery loose BM this AM. Is concerned about infection. Plan to hold bowel regimen today Pain: Well controlled Diet: Tolerating regular diet. Ambulating independently Voiding spontaneously Lochia less than menses Scheduled Medications acetaminophen, 1,000 mg, oral, Q6H docusate sodium, 100 mg, oral, BID enoxaparin, 40 mg, subcutaneous, Daily-2100 hydrOXYchloroQUINE, 400 mg, oral, Daily ibuprofen, 600 mg, oral, Q6H lidocaine, 2 patch, transdermal, Daily viatmin, 1 tablet, oral, Daily predniSONE, 15 mg, oral, Daily [START ON 01/02/2021] predniSONE, 5 mg, oral, Daily ramelteon, 8 mg, oral, Nightly senna, 1 tablet, oral, BID sertraline, 50 mg, oral, Daily PRN Medications diphenhydrAMINE ??? hydrocortisone ??? hydrOXYzine ??? ondansetron ODT OR ondansetron ??? oxyCODONE ??? polyethylene glycol ??? simethicone ??? sodium chloride 0.9% ??? sterile water Vitals: Temp: [36.5 ??C (97.7 ??F)-36.6 ??C (97.9 ??F)] 36.6 ??C (97.9 ??F) Pulse: [65-82] 78 BP: (109-124)/(59-81) 124/81 Resp: [16-20] 18 SpO2: [98 %-100 %] 98 % No intake or output data in the 24 hours ending 01/01/21 0644 Physical Exam General: No acute distress. Cardiovascular: Regular rate and rhythm. Lungs: Non-labored. Abdomen: Soft, mildly distended in upper quadrants- tympanic. non-tender to palpation. Fundus belowumbilicus. Incision c/d/i Extremities: Warm and well-perfused. Neuro: Globally intact Recent Labs Lab Units 12/31/20 0514 12/29/20 1120 WBC K/cumm 14.9* 12.5* HEMOGLOBIN g/dL 9.1* 12.4 HEMATOCRIT % 28.2* 38.3 PLATELETS K/cumm 186 217 CREATININE mg/dL -- 0.45* AST Units/L -- 24 ALT Units/L -- 17 GLUCOSE mg/dL -- 100 Labs: Lab Results Component Value Date ABORH A Positive 12/30/2020 IDCOOMB Negative 12/30/2020 [id number] Nonreactive 12/06/2020 LABRPR Nonreactive 12/30/2020 Assessment and Plan 30 y.o. POD#2 LTCS due to placenta previa and transverse presentation. Problem delivery # ID: Afebrile. No signs/symptoms of infection. [...] mg/daily of prednisone for following 48 hours. After that, can decrease the dose to 5 mg daily. # MARIMAR: On sertraline 50mg nightly, PRN hydroxyzine, nightly PRN ramelteon. # BRIAN: s/p iron infusion # CV/Pulm: Vital signs stable, within normal limits. # GI/: Tolerating PO. Adequate urine output, voiding spontaneously # Pain: Controlled with above regimen. # [...] # Disposition: Follow up task not sent. Continue routine postoperative care. Juana Ivory MD 01/01/21 I agree with the above documentation. Will continue to monitor stool/bowel function today. Yamila Zhao MD, MPH PGY-4, Obstetrics & Gynecology Cosigned by Maura Moreno MD at 01/01/2021 8:49 AM CDT Associated attestation - Maura Moreno MD - 01/01/2021 8:49 AM CDT I have seen and examined the patient on 01/01/21. I agree with the findings and plan of care as documented in the resident's/fellow's note.. * Juana Ivory MD - 12/31/2020 6:11 AM CDT Post Progress Note Delivery Date/Time: 12/30/2020 at 12:15 PM Delivery method: , Low Transverse [251] Obstetrical/Medical Problems: Medical Conditions Diagnosis ??? Laceration of flexor muscle, fascia and tendon of right little finger at wrist and hand level, initial encounter ??? Cough ??? Lupus (CMS/HCC) (HCC) ??? Miscarriage ??? Tachycardia ??? Liver lesion ??? BMI 29.0-29.9,adult ??? Epilepsy undetermined as to focal or generalized (CMS/HCC) (HCC) ??? Microcytic anemia ??? Joint pain ??? Anti-HUMAN RESOURCES DESIGNATE antibodies present ??? Adrenal insufficiency (CMS/HCC) (HCC) [...] Anemia during in third trimester ??? delivery Subjective Flatus: No Pain: Well controlled Diet: Tolerating regular diet. Ambulating independently Voiding spontaneously Lochia equal to menses Lots of energy this morning, denies headache fatigue or feeling lightheaded Scheduled Medications acetaminophen, 1,000 mg, oral, Q6H acetaminophen, 1,000 mg, oral, Q6H YOSEPH docusate sodium, 100 mg, oral, BID enoxaparin, 40 mg, subcutaneous, Daily-2100 hydrOXYchloroQUINE, 200 mg, oral, Daily ibuprofen, 600 mg, oral, Q6H ketorolac, 30 mg, intravenous, Q6H viatmin, 1 tablet, oral, Daily [START ON 01/01/2021] predniSONE, 15 mg, oral, Daily senna, 1 tablet, oral, BID sertraline, 50 mg, oral, Daily sodium chloride 0.9%, 0.5-20 mL, intra-catheter, Q8H YOSEPH PRN Medications diphenhydrAMINE ??? diphenhydrAMINE ??? hydrocortisone ??? HYDROmorphone ??? HYDROmorphone ??? nalbuphine ??? naloxone ??? ondansetron ODT OR ondansetron ??? ondansetron ODT OR ondansetron ??? oxyCODONE ??? oxyCODONE ??? polyethylene glycol ??? simethicone ??? sodium chloride 0.9% ??? sodium chloride 0.9% ??? sterile water Vitals: Temp: [36.5 ??C (97.7 ??F)-36.7 ??C (98.1 ??F)] 36.7 ??C (98.1 ??F) Pulse: [70-156] 72 BP: (106-125)/(53-83) 112/59 Resp: [14-18] 18 SpO2: [78 %-100 %] 99 % Intake/Output Summary (Last 24 hours) at 12/31/2020 0701 Last data filed at 12/30/2020 1812 Gross per 24 hour Intake 465.5 ml Output 2495 ml Net -2029.5 ml Physical Exam General: No acute distress. Cardiovascular: Regular rate and rhythm. Lungs: Non-labored. Abdomen: Soft, non-distended, non-tender to palpation. Fundus below umbilicus. Bandage c/d/i, smallamount SS drainage on L side bandage Extremities: Warm and well-perfused. Neuro: Globally intact Recent Labs Lab Units 12/31/20 0514 12/29/20 1120 WBC K/cumm 14.9* 12.5* HEMOGLOBIN g/dL 9.1* 12.4 HEMATOCRIT % 28.2* 38.3 PLATELETS K/cumm 186 217 CREATININE mg/dL -- 0.45* AST Units/L -- 24 ALT Units/L -- 17 GLUCOSE mg/dL -- 100 Labs: Lab Results Component Value Date ABORH A Positive 12/30/2020 IDCOOMB Negative 12/30/2020 [id number] Nonreactive 12/06/2020 LABRPR Nonreactive 12/30/2020 Assessment and Plan 30 y.o. POD#1 LTCS due to placenta previa and transverse presentation. Problem delivery # ID: Afebrile. No signs/symptoms of infection. [...] mg/daily of prednisone for following 48 hours. After that, can decrease the dose to 5 mg daily. # MARIMAR: On sertraline 50mg nightly # BRIAN: s/p iron infusion # CV/Pulm: Vital signs stable, within normal limits. # GI/: Tolerating PO. Adequate urine output, voiding spontaneously # Pain: Controlled with above regimen. # [...] # Disposition: Follow up task not sent. Continue routine postoperative care. Juana Ivory MD 12/31/20 I have reviewed the above and agree with documentation. Delivery complicated by PPH in setting of atony. Continue stress dose steroids as noted above. Sherri Garcias MD 12/31/2020 Cosigned by Avelino Triplett MD at 12/31/2020 1:14 PM CDT Associated attestation - Avelino Triplett MD - 12/31/2020 1:14 PM CDT I have seen and examined the patient on 12/31/20. I agree with the findings and plan of care as documented in the resident's/fellow's note. POD 1 - continue routine postop care. Recovering appropriately. I reviewed postop restrictions on activity, lifting, and pelvic rest. Anxiety - continue on Zoloft Lupus - continue home dose Plaquenil, prednisone. Will also continue prednisone stress dosing per endocrinology recommendations documented in this encounter H&P Notes * Neisha Arevalo MD - 12/30/2020 11:53 AM CDT Images from the original note were not included. Obstetrics H&P Chief Complaint: primary Estimated Date of Delivery: 01/27/21 Provider: RENETTA HPI: Carito Bowen is a 30 y.o. female at 36w0d gestation, dated by L=1 Her is complicated by : #Placenta previa: s/p 4 bleeds, inpatient admission recommended multiple times but patient declined. No ultrasound findings c/f PAS. For pCS. S/p BMZ x1 dose on 10/18. #Lupus: on hydroxychloroquine 200 mg alternating with 400 mg every other day, prednisone 7.5mg daily. S/p normal testing. #Adrenal insufficiency: 2/2 chronic steroid use. Delivery plan: IV infusion of hydrocortisone 200 mg/24 hours and 15 mg/daily of prednisone for following 48 hours. After that, can decrease the dose to 5 mg daily. #MARIMAR: recently started on sertraline 50mg nightly #BRIAN: s/p iron infusion #Marginal cord insertion #GBS positive She feels well today, just anxious for surgery. 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 Patient is . History of Abnormal Pap: None STD History: none Past Medical History: Diagnosis Date ??? Anemia ??? Anxiety ??? Anxiety disorder currently on no meds ??? Asthma never hospitalized/intubated. albuterol as needed ??? Chronic diarrhea ??? Chronic kidney disease lupus nephritis ??? Depression ??? Headache, tension-type ??? Lupus (CMS/HCC) (HCC) ??? PONV (postoperative nausea and vomiting) ??? 07/13/2015 ??? Rheumatoid arthritis (HCC) ??? Seizures (CMS/HCC) (HCC) reaction to a medication Chronic hypertension: No Diabetes: No Asthma: No Past Surgical History: Procedure Laterality Date ??? APPENDECTOMY ??? COLONOSCOPY 07/29/2019 ??? DILATION AND CURETTAGE OF UTERUS 09/2017 ??? ESOPHAGOGASTRODUODENOSCOPY 07/2019 ??? HAND SURGERY ??? WRIST SURGERY Right 12/09/2018 rt wrist median nerve repair, allograft nerve wrap application Social History Socioeconomic History ??? Marital status: Spouse name: Not on file ??? Number of children: Not on file ??? Years of education: Not on file ??? Highest education level: Not on file Tobacco Use ??? Smoking status: Former Smoker Quit date: 12/28/2018 Years since quittin.0 ??? Smokeless tobacco: Never Used Vaping Use ??? Vaping Use: Never used Substance and Sexual Activity ??? Alcohol use: Yes Comment: occasionally ??? Drug use: Not Currently Types: Marijuana ??? Sexual activity: Yes Partners: Male Support System: Not addressed Safe at home: Yes family history includes Colon cancer in an other family member; Diabetes in her mother; Gout in hermother; Heart disease in her father; Hypertension in her mother; Stroke in her father. Family history of bleeding or clotting disorders: No Family history of defects, genetic disorders, or developmental delay: No Allergies Allergen Reactions ??? Macrobid [Nitrofurantoin Monohyd/M-Cryst] [...] lupus ??? Venlafaxine Itching HOME MEDICATIONS : al & mag hydroxide with offjqdsftyl-ketqdnhpvxlfuoa-yhquxxdbv (MAGIC MOUTHWASH) suspension aspirin 81 mg enteric coated tablet cyclobenzaprine (FLEXERIL) 5 mg tablet ferrous gluconate (ferrous gluconate) 324 mg (37.5 mg of elemental iron) tablet hydrOXYchloroQUINE (PLAQUENIL) 200 mg tablet omeprazole (PriLOSEC) 20 mg capsule predniSONE (DELTASONE) 5 mg tablet vit no.[id number] (Classic ) 28 mg iron- 800 mcg tablet sertraline (ZOLOFT) 25 mg tablet valACYclovir (VALTREX) 500 mg tablet Review of Sys: Negative except per HPI Vitals: Temp: [36.7 ??C (98.1 ??F)] 36.7 ??C (98.1 ??F) Pulse: [98-127] 122 Resp: [16] 16 BP: (123)/(72-83) 123/83 Physical Exam: General: NAD, mood appropriate Cardiovascular: Regular rate and rhythm Pulmonary: nonlabored Abdomen: Gravid, non-tender Extremities: Warm and well perfused Speculum Exam: deferred Cervix: / / Monitoring: Baseline: 150 bpm, Variability: Moderate, Accelerations: Present and Decelerations: None Uterine Activity: No contractions seen on toco Interpretation: Reactive Ultrasound: Transverse presentation Anterior placenta Previa: Yes Estimated Weight: 3123g (87%) by US, date performed 12/27/20 Labs: Lab Results Component Value Date ABORH A Positive 12/30/2020 IDCOOMB Negative 12/30/2020 [id number] Nonreactive 12/06/2020 LABRPR Nonreactive 12/06/2020 Rh +/Ab -/HIV NR/Rub Imm/RPR NR/HepB Neg/GC/CT -/- GBS + susceptibilities pending Assessment and Plan Carito Bowen is a 30 y.o. female at 36w0d who is being admitted for primary in the setting of placenta previa. delivery ?? 1. Scheduled primary : Admit to L&D. Consents signed and placed in chart. Send T&S. . 2. FWB: Continuous monitoring. tracing category I 3. ID: HIV negative. GBS positive, antibiotics not indicated. Membrane Status: intact. 4. Placenta previa: s/p 4 bleeds, inpatient admission recommended multiple times but patient declined. No ultrasound findings c/f PAS. For pCS. S/p BMZ x1 dose on 10/18. 5. Lupus: on hydroxychloroquine 200 mg alternating with 400 mg every other day, prednisone 7.5mg daily. S/p normal testing. 6. Adrenal insufficiency: 2/2 chronic steroid use. Delivery plan: IV infusion of hydrocortisone 200mg/24 hours and 15 mg/daily of prednisone for following 48 hours. After that, can decrease the doseto 5 mg daily. 7. MARIMAR: recently started on sertraline 8. BRIAN: s/p iron infusion 9. Marginal cord insertion 10. Indications for UDS: none. Verbal consent obtained for UDS: Not indicated 11. MOF: Plans to breastfeed. 12. MOC: Undecided on contraception. 13. Pain management: Epidural will be placed prior to surgery. 14. Post DVT prophylaxis: The patient has the following MAJOR risk factors lupus and the following MINOR risk factors BMI 30-39 and delivery. enoxaparin 40 mg daily will be ordered for VTE prophylaxis . 15. COVID Vaccine Status: Previously received 16. COVID Test Status: Preadmission testing negative Plan discussed with Dr. Sorto. Juana Ivory MD 12/30/2020 [facility] Fellow Attestation I have seen and discussed Carito Bowen with the resident, Dr. Ivory on 12/30/2020. I have evaluated the patient and reviewed the treatment plan and recommendations. I agree with the findings and the plan of care as documented in the resident???s note with the following addendum: Briefly, this is a 30 y.o. at 36w0d with complicated by placenta previa. BSUS consistent with transverse lie and persistent anterior placenta previa. Given adrenal insufficiency, will planfor hydrocortisone 100 mg at the time of delivery followed by 2 additional doses of 50 mg q8 dosing. Remainder of care as included above. Neisha Arevalo MD Maternal Medicine Fellow, PGY-5 Cosigned by Kristin Sorto MD at 12/30/2020 1:10 PM CDT Associated attestation - Kristin Sorto MD - 12/30/2020 1:10 PM CDT I have seen and examined the patient on 12/30/20. I agree with the findings and plan of care as documented in the resident's/fellow's note. Ultrasound prior to surgery confirmed persistent previa andmalpresentation of fetus with olbique/transverse lie ( head lower than breech) and funic presentation. documented in this encounter Nursing Notes * Roro Waldrop RN - 01/03/2021 4:36 PM CST Pt provided with parking pass. Discharge instructions provided with pt's expressed understanding. Pt safe for discharge home at this time. E ATTENDANT * Roro Waldrop RN - 01/03/2021 1:33 PM CST Pt complaining of worsening headache not relieved with oxycodone, ibuprofen, zyrtec, or tylenol. Ptstates pain is radiating down spine and her feet are tingly. MD Dianelys and MD Fermin with anesthesia is aware. Will continue to monitor pt for new or worsening symptoms. E ATTENDANT documented in this encounter Miscellaneous Notes * Hospital Course - Juana Ivory MD - 01/03/2021 10:09 AM CST Carito Bowen is a 30 y.o. at 36w0d who presented to L&D for repeat section due to transverse presentation and anterior placenta previa. Her was complicated by lupus, adrenal insufficiency, MARIMAR, BRIAN, anterior placenta previa, transverse presentation and MCI . She underwent a primary Low Transverse Section via Pfann[place]ste[place]. Delivery was complicated by post- hemorrhage which resolved quickly. See operative report for full details. The patient was transferred to . Her course was complicated by headache- assessed twice by anesthesia- see note . Prior to discharge, her pain was well controlled, she was voiding, passing gas, ambulating, and meeting all postoperative milestones. # Heme: PPH: EBL 1750 mL (due [...] nightly, PRN hydroxyzine, nightly PRN ramelteon. # BRIAN: s/p iron infusion, discharge on po Fe # CV/Pulm: Vital signs stable, within normal limits. # GI/: Tolerating PO. Adequate urine output, voiding spontaneously. # Pain: Controlled with above regimen. Headache assessed by anesthesia- do not think related to epidural. # Post DVT prophylaxis: The patient has the following MAJOR risk factors lupus and the following MINOR risk factors BMI 30-39, PPH (EBL >/= 1000 mL) and delivery. enoxaparin 40 mg daily ordered for VTE prophylaxis. # MOC: partner vasectomy- declines bridge s/p counseling # MOF: E ATTENDANT E ATTENDANT E ATTENDANT E ATTENDANT * Plan of Keith - Roro Waldrop RN - 01/03/2021 9:11 AM CST Problem: Activity: Goal: Ability to tolerate increased activity will improve Outcome: Progressing Problem: Bowel/Gastric: Goal: Gastrointestinal status for postoperative course will improve Outcome: Progressing Problem: Lack of Knowledge: Goal: Knowledge of Section Care will improve Outcome: Progressing Problem: Life Cycle: Goal: Chance of risk for complications during the period will decrease Outcome: Progressing Problem: Physical Regulation: Goal: Postoperative complications will be avoided or minimized Outcome: Progressing Problem: Respiratory: Goal: Ability to maintain adequate ventilation will improve Outcome: Progressing Problem: Role Relationship: Goal: Ability to demonstrate positive interaction with the child will improve Outcome: Progressing Problem: Sensory: Goal: Pain level will decrease Outcome: Progressing Goal: Satisfaction with pain management regimen will improve Outcome: Progressing Problem: Skin Integrity: Goal: Demonstration of wound healing without infection will improve Outcome: Progressing Goal: Ability to participate in self-care as condition permits will improve Outcome: Progressing Problem: Urinary Elimination: Goal: Ability to reestablish a normal urinary elimination pattern will improve Outcome: Progressing Goals: Clinical Goals for the Shift: vss, pain control, lower anxiety, visit baby in NICU Roro Waldrop RN E ATTENDANT * Plan of Keith - Leti Garcia RN - 01/03/2021 2:38 AM CST Problem: Activity: Goal: Ability to tolerate increased activity will improve Outcome: Progressing Problem: Bowel/Gastric: Goal: Gastrointestinal status for postoperative course will improve Outcome: Progressing Problem: Lack of Knowledge: Goal: Knowledge of Section Care will improve Outcome: Progressing Problem: Life Cycle: Goal: Chance of risk for complications during the period will decrease Outcome: Progressing Problem: Physical Regulation: Goal: Postoperative complications will be avoided or minimized Outcome: Progressing Problem: Respiratory: Goal: Ability to maintain adequate ventilation will improve Outcome: Progressing Problem: Role Relationship: Goal: Ability to demonstrate positive interaction with the child will improve Outcome: Progressing Problem: Sensory: Goal: Pain level will decrease Outcome: Progressing Goal: Satisfaction with pain management regimen will improve Outcome: Progressing Problem: Skin Integrity: Goal: Demonstration of wound healing without infection will improve Outcome: Progressing Goal: Ability to participate in self-care as condition permits will improve Outcome: Progressing Problem: Urinary Elimination: Goal: Ability to reestablish a normal urinary elimination pattern will improve Outcome: Progressing Goals: Clinical Goals for the Shift: vss, pain control, lower anxiety, visit baby in NICU Summary: Pt progressing toward goals. Pain controlled on oral medication. Pt able to ambulate independently and care for self. Voiding without difficulty. Encouraged to go visit baby in NICU. E ATTENDANT * Note - Saadia Adams RN - 01/02/2021 1:56 PM CST This note was copied from a baby's chart. Spoke with mother via phone. Reviewed Hands on pumping as well as tanana pump use. Guide reviewed as well as voucher program. Mother aware to reach out to for any follow up concerns. Mother has my contact information. Support and encouragement given. E ATTENDANT * Plan of Care - Radha Bright RN - 01/02/2021 9:59 AM CST Goals: Clinical Goals for the Shift: vitals WNL and pain control Summary: E ATTENDANT * Plan of Care - Leti Garcia RN - 01/02/2021 1:01 AM CDT Problem: Activity: Goal: Ability to tolerate increased activity will improve Outcome: Progressing Problem: Bowel/Gastric: Goal: Gastrointestinal status for postoperative course will improve Outcome: Progressing Problem: Lack of Knowledge: Goal: Knowledge of Section Care will improve Outcome: Progressing Problem: Life Cycle: Goal: Chance of risk for complications during the period will decrease Outcome: Progressing Problem: Physical Regulation: Goal: Postoperative complications will be avoided or minimized Outcome: Progressing Problem: Respiratory: Goal: Ability to maintain adequate ventilation will improve Outcome: Progressing Problem: Role Relationship: Goal: Ability to demonstrate positive interaction with the child will improve Outcome: Progressing Problem: Sensory: Goal: Pain level will decrease Outcome: Progressing Goal: Satisfaction with pain management regimen will improve Outcome: Progressing Problem: Skin Integrity: Goal: Demonstration of wound healing without infection will improve Outcome: Progressing Goal: Ability to participate in self-care as condition permits will improve Outcome: Progressing Problem: Urinary Elimination: Goal: Ability to reestablish a normal urinary elimination pattern will improve Outcome: Progressing Goals: Clinical Goals for the Shift: vss, pain control, visit baby Summary: Pt progressing toward goals. Pain somewhat controlled on oral medication. Pt able to ambulate independently and care for self. Voiding without difficulty. Visits baby in NICU. * Plan of Care - Radha Bright RN - 01/01/2021 11:47 AM CDT Goals: Clinical Goals for the Shift: vitals WNL and pain control Summary: * Plan of Care - Leti Garcia RN - 12/31/2020 10:57 PM CDT Problem: Activity: Goal: Ability to tolerate increased activity will improve Outcome: Progressing Problem: Bowel/Gastric: Goal: Gastrointestinal status for postoperative course will improve Outcome: Progressing Problem: Lack of Knowledge: Goal: Knowledge of Section Care will improve Outcome: Progressing Problem: Life Cycle: Goal: Chance of risk for complications during the period will decrease Outcome: Progressing Problem: Physical Regulation: Goal: Postoperative complications will be avoided or minimized Outcome: Progressing Problem: Respiratory: Goal: Ability to maintain adequate ventilation will improve Outcome: Progressing Problem: Role Relationship: Goal: Ability to demonstrate positive interaction with the child will improve Outcome: Progressing Problem: Sensory: Goal: Pain level will decrease Outcome: Progressing Goal: Satisfaction with pain management regimen will improve Outcome: Progressing Problem: Skin Integrity: Goal: Demonstration of wound healing without infection will improve Outcome: Progressing Goal: Ability to participate in self-care as condition permits will improve Outcome: Progressing Problem: Urinary Elimination: Goal: Ability to reestablish a normal urinary elimination pattern will improve Outcome: Progressing Goals: Clinical Goals for the Shift: vss, pain control, visit baby Summary: Pt progressing toward goals. Pain controlled on oral medication. Pt able to ambulate independently and care for self well. Voiding without difficulty. Goes to visit baby in NICU. * Note - Мария Fraser RN - 12/31/2020 3:11 PM CDT Discussed pumping for in NICU. Discussed benefits of breastmilk for her and benefits of early pumping on her milk supply. Discussed frequency of pumping and hand expression for adequate stimulation. Discussed importance of frequent breast stimulation for milk supply. Discussedmilk storage and amount expectations over the next few days. Mother is using appropriate flange size. Discussed obtaining loaner pump through NICU as well as pump for home use after infant is discharged. Support and encouragement provided. Instructed to reach out with additional questions or concerns. * Plan of Care - Breanna Osman RN - 12/31/2020 8:18 AM CDT Problem: Activity: Goal: Ability to tolerate increased activity will improve Outcome: Progressing Problem: Bowel/Gastric: Goal: Gastrointestinal status for postoperative course will improve Outcome: Progressing Problem: Lack of Knowledge: Goal: Knowledge of Section Care will improve Outcome: Progressing Problem: Life Cycle: Goal: Chance of risk for complications during the period will decrease Outcome: Progressing Problem: Physical Regulation: Goal: Postoperative complications will be avoided or minimized Outcome: Progressing Problem: Respiratory: Goal: Ability to maintain adequate ventilation will improve Outcome: Progressing Problem: Role Relationship: Goal: Ability to demonstrate positive interaction with the child will improve Outcome: Progressing Problem: Sensory: Goal: Pain level will decrease Outcome: Progressing Goal: Satisfaction with pain management regimen will improve Outcome: Progressing Problem: Skin Integrity: Goal: Demonstration of wound healing without infection will improve Outcome: Progressing Goal: Ability to participate in self-care as condition permits will improve Outcome: Progressing Problem: Urinary Elimination: Goal: Ability to reestablish a normal urinary elimination pattern will improve Outcome: Progressing Goals: Clinical Goals for the Shift: Pain management, pumping, mobility Summary: Patient adapting well to postoperative period. Now voiding spontaneously and ambulating independently. Will continue to assist with pumping today and manage pain as needed. * Plan of Care - Cassandra Larsen RN - 12/30/2020 10:39 PM CDT Problem: Activity: Goal: Ability to tolerate increased activity will improve Outcome: Progressing Problem: Bowel/Gastric: Goal: Gastrointestinal status for postoperative course will improve Outcome: Progressing Problem: Lack of Knowledge: Goal: Knowledge of Section Care will improve Outcome: Progressing Problem: Life Cycle: Goal: Chance of risk for complications during the period will decrease Outcome: Progressing Problem: Physical Regulation: Goal: Postoperative complications will be avoided or minimized Outcome: Progressing Problem: Respiratory: Goal: Ability to maintain adequate ventilation will improve Outcome: Progressing Problem: Role Relationship: Goal: Ability to demonstrate positive interaction with the child will improve Outcome: Progressing Problem: Sensory: Goal: Pain level will decrease Outcome: Progressing Goal: Satisfaction with pain management regimen will improve Outcome: Progressing Problem: Skin Integrity: Goal: Demonstration of wound healing without infection will improve Outcome: Progressing Goal: Ability to participate in self-care as condition permits will improve Outcome: Progressing Problem: Urinary Elimination: Goal: Ability to reestablish a normal urinary elimination pattern will improve Outcome: Progressing Goals: Clinical Goals for the Shift: VSS, pain management, up as tolerated Summary: VSS, progressing towards goals. * Plan of Care - Breanna Osman RN - 12/30/2020 4:47 PM CDT Problem: Activity: Goal: Ability to tolerate increased activity will improve Outcome: Progressing Problem: Bowel/Gastric: Goal: Gastrointestinal status for postoperative course will improve Outcome: Progressing Problem: Lack of Knowledge: Goal: Knowledge of Section Care will improve Outcome: Progressing Problem: Life Cycle: Goal: Chance of risk for complications during the period will decrease Outcome: Progressing Problem: Physical Regulation: Goal: Postoperative complications will be avoided or minimized Outcome: Progressing Problem: Respiratory: Goal: Ability to maintain adequate ventilation will improve Outcome: Progressing Problem: Role Relationship: Goal: Ability to demonstrate positive interaction with the child will improve Outcome: Progressing Problem: Sensory: Goal: Pain level will decrease Outcome: Progressing Goal: Satisfaction with pain management regimen will improve Outcome: Progressing Problem: Skin Integrity: Goal: Demonstration of wound healing without infection will improve Outcome: Progressing Goal: Ability to participate in self-care as condition permits will improve Outcome: Progressing Problem: Urinary Elimination: Goal: Ability to reestablish a normal urinary elimination pattern will improve Outcome: Progressing Goals: Clinical Goals for the Shift: admit to 6800 Summary: Patient adapting well to postoperative period. Will continue to monitor. * Op Note - Juana Ivory MD - 12/30/2020 3:21 PM CDT [facility] Section Delivery Note Patient's Name: Carito Bowen : 1990 Attending Physician: Kristin Sorto MD Surgical Team: Surgeon(s) and Role: * Kristin Sorto MD - Primary * Zane Hayden MD - Resident - Assisting * Juana Ivory MD - Resident - Assisting * Neisha Arevalo MD - Fellow Clinic: [facility] Primary Diagnosis: Intrauterine at 36w0d, delivered Placenta previa Transverse lie Obstetrical Medical Risk Factors: Medical Conditions Diagnosis ??? Laceration of flexor muscle, fascia and tendon of right little finger at wrist and hand level, initial encounter ??? Cough ??? Lupus (CMS/HCC) (HCC) ??? Miscarriage ??? Tachycardia ??? Liver lesion ??? BMI 29.0-29.9,adult ??? Epilepsy undetermined as to focal or generalized (CMS/HCC) (HCC) ??? Microcytic anemia ??? Joint pain ??? Anti-HUMAN RESOURCES DESIGNATE antibodies present ??? Adrenal insufficiency (CMS/HCC) (HCC) [...] Anemia during in third trimester ??? delivery Delivery method: , Low Transverse [251] Anesthesia: Spinal [252] Membranes: Artificial rupture, clear. Time ruptured prior to delivery: 0h 01m Antibiotics: Clindamycin/Gentamicin Delivery Date/Time: 12/30/2020 at 12:15 PM Placenta Delivery Date & Time: 12/30/2020 12:16 PM Cord: 3 vessels [3] Delayed cord clamping: No, per pediatrics : living 7 lb 4.4 oz (3.3 kg) female APGARs: 1 / 3 Disposition: NICU Operative Note Preoperative Diagnosis: Intrauterine at 36w0d placenta previa Transverse presentation Postoperative Diagnosis: Same Name of Operation: Primary Low Transverse Section via Pfannensteil Indication for Procedure: Carito Bowen is a 30 y.o. female at 36w0d weeks gestation, dated by L=1 who presented to L&D for Scheduled . Operative Findings: Viable female infant, in transverse presentation. APGARS were 1 / 3 at 1 and 5 minutes respectively. Pediatrics was present at delivery. Placenta with central 3 vessel cord. Normal uterus, bilateral tubes and ovaries. Description of Procedure: After obtaining the appropriate operative consents, the patient was takento the operating room, where spinal anesthesia was placed and confirmed to be adequate. She was given Clindamycin/Gentamicin. She was then prepared and draped in the normal sterile fashion in the supine position with a leftward tilt. A Pfannenstiel skin incision was then made with the scalpel and carried through to the underlying layer of fascia. The fascia was incised in the midline and the incision extended laterally with Acevedo scissors. The superior aspect of the fascial incision was then grasped with the Neelima clamps and elevated, the underlying rectus muscles were dissected off bluntly and sharply. Attention was then turned to the inferior aspect of the fascial incision, which, in a similar fashion, was grasped and tented up with the Neelima clamps, the underlying rectus muscles were dissected off bluntly and sharply. The rectus muscles were then in the midline, and the peritoneum was identified and entered bluntly. The peritoneal incision was then extended superiorly and inferiorly with good visualization of the bladder. The bladder blade was then inserted and the vesicouterine peritoneum identified. A low transverse hysterotomy was made with the scalpel. The uterine incision was then extended bluntly. The bladder blade was removed. The anterior placenta was encountered and swept laterally. Amniotomy was performed inferior to the placenta and the head and body were delivered in the standard fashion without complication. The cord was clamped 20 seconds after delivery per pediatrics as the baby was not vigorous. The cord was cut and the infant was handed off to the waiting pediatricians. Cord gases were sent. The placenta was then delivered using external massage. The uterus was exteriorized and cleared of all clots and debris. The uterus was noted to be boggy 0.2mg Methergine IM and TXA 1000mg were administered.The uterine incision was repaired with 0-vicryl in a running, locked fashion. A second imbricating layer of 0-monocryl suture was used to obtain excellent hemostasis. Good hemostasis was notedafter hysterotomy closure. The uterus was returned to the abdomen and the gutters were cleared of all clots and debris. The hysterotomy was examined in situ and hemostasis was satisfactory. The ventral aspect of the fascia wasinspected and no fascial defects were found. The rectus muscles were inspected and found to be intact. The fascia was reapproximated with looped 0 PDS in a running fashion. The subcutaneous tissue was then irrigated and the bovie was used to obtain excellent hemostasis. The subcutaneous tissue was closed with plain gut. The skin was closed with 3-0 monocryl in a subcuticular fashion. The patient tolerated the procedure well and was taken to the recovery room in stable condition. Complications: Post hemorrhage Estimated Blood Loss: 1750mL Intraoperative Fluids: 1500mL crystalloid, 500mL albumin Urine Output: 100mL clear yellow urine at the end of the procedure Sponge/Instrument/Needle Counts: The sponge, lap and needle counts were correct x3. Specimens Sent To Pathology: * No specimens in log * The attending, Kristin Sorto MD, was present for the iraheta portions of the procedure. Cosigned by Kristin Sorto MD at 12/30/2020 5:03 PM CDT Associated attestation - Kristin Sorto MD - 12/30/2020 5:03 PM CDT I was present for the iraheta portion of the procedure: The iraheta portions were from skin incision through fascial closure. I was immediately available for the remainder of the procedure. Placenta was encountered upon hysterotomy and amniotomy was performed medially and somewhat inferiorly to a portion of the placenta. The head followed by the body was delivered without complication throughthe amniotomy. Upon delivery of the infant, there was further separation of the placenta at the hysterotomy site and the fetus was not vigorous, so delayed cord clamping was not performed. The placenta was easily delivered. There was significant uterine atony however this was treated as above and improved during the course of uterine closure. * Plan of Care - Nicole Johnson RN - 12/30/2020 10:44 AM CDT Problem: Lack of Knowledge: Goal: Verbalization of understanding the information provided will improve Outcome: Progressing Problem: Coping: Goal: Ability to identify appropriate support needs for the childbearing process will improve Outcome: Progressing Goal: Ability to verbilize concerns and feelings about labor and delivery improve Outcome: Progressing Problem: Life Cycle: Goal: Ability to maintain clinical measurements within normal limits will improve Outcome: Progressing Goal: Ability to make normal progression through stages of labor will improve Outcome: Progressing Goal: Ability to effectively push during vaginal delivery will improve Outcome: Progressing Problem: Role Relationship: Goal: Ability to demonstrate positive interaction with the child will improve Outcome: Progressing Problem: Safety: Goal: Chance of risk for complications during labor and delivery will decrease Outcome: Progressing Problem: Sensory: Goal: Relief or control of pain from uterine contractions will improve Outcome: Progressing Goals: Clinical Goals for the Shift: Vss, pain control, safe delivery documented in this encounter Plan of Treatment Not on file documented as of this encounter Procedures Procedure Name Priority Date/Time Associated Diagnosis Comments RBC%, QUANTITATIVE Timed 01/01/2021 5:15 PM CDT CBC WITHOUT DIFFERENTIAL Timed 12/31/2020 5:14 AM CDT SURGICAL PATHOLOGY Routine 12/30/2020 12:16 PM CDT SECTION 12/30/2020 11:34 AM CDT Generalized anxiety disorder Marginal insertion of umbilical cord affecting management of mother in second trimester Placenta previa specified as without hemorrhage in second trimester Polyhydramnios in third trimester, not applicable or unspecified fetus Supervision of high-risk , unspecified trimester Case Notes Complete placenta previa PREPARE RBC Timed 12/30/2020 10:56 AM CDT RPR Routine 12/30/2020 10:08 AM CDT TYPE AND SCREEN STAT 12/30/2020 10:08 AM CDT documented in this encounter Results * RBC%, quantitative (01/01/2021 5:15 PM CDT) [facility] Hgb F, flow cytometry <0.05 0.05 - 0.10 % ARPITA SILVEIRA Comment: Interpretive data: ? ? RhIg administration is not needed for Rh-positive women with fetomaternal hemorrhage. ? ? Dosage of RhIG for the prevention of RhD alloimmunization following fetomaternal hemorrhage must be based on the individual clinical situation. ??The dosage recommendations provided here represent one published method and are voluntary. ? ? Dosage of RhIG, in number of 300 mcg vials, is based on the estimated volume of fetomaternal bleed, calculated by estimating the maternal blood volume and multiplying by the percent of cells in the maternal blood provided by the Kleihauer-Betke or flow cytometry test methods. ??The recommended dosage is the estimated volume of fetomaternal bleed, divided by 30 mL, rounded to the nearest integer, plus one. ??In the case of a negative screen for cells, the recommended dose is one vial. ? ? Fetomaternal bleed Recommended dose (vials) ? ? Negative screen ??1 ? ? <15 ml ?? 1 ? ? 15-44 ml ??2 ? ? 45-74 ml ??3 ? ? As an example, if the estimated maternal blood volume is 5,000 mL and the percent of cells is 1.5%, the dose would be calculated as: ? ? Estimated fetomaternal bleed = 5,000 ml X 0.015 = 75 mL ? ? Recommend dose = 75 mL / 30 mL = 2.5, round and add one = 4 vials ?These recommendations are published in the [employer] Technical Manual, 19th ed, 2017, pp. 603-605. ? This test was developed and its performance characteristics determined by the [facility] Flow Cytometry laboratory. It has not been cleared or approved by the [place] Food and Drug Administration. This test is used for clinical purposes. It should not be regarded as investigational or for research. This laboratory is certified under the Clinical Laboratory Improvement Amendments (CLIA) as qualified to perform high complexity clinical laboratory testing. Current Interpretative data was last revised on 19. Blood 01/01/2021 5:15 PM CDT 01/01/2021 5:29 PM CDT us Kristin Sorto MD LAB BLOOD BANK TEST ORDER ANAHI Final Result [facility] Department [place] [address] * (ABNORMAL) CBC without differential (12/31/2020 5:14 AM CDT) WBC 14.9(H) 3.8 - 9.9 K/cumm [facility] Hgb 9.1(L) 11.9 - 15.5 g/dL [facility] Comment:Post , called to Cassandra Larsen RN. Hct 28.2(L) 35.6 - 45.5 % [facility] Plt 186 150 - 400 K/cumm [facility] MPV 10.1 9.1 - 12.3 fL [facility] RBC 3.18(L) 3.90 - 5.20 M/cumm [facility] MCV 88.7 81.3 - 96.4 fL [facility] MCH 28.6 27.1 - 33.3 pg [facility] MCHC 32.3 32.3 - 35.7 g/dL [facility] RDW CV 18.3(H) 11.1 - 14.9 % [facility] RDW SD 60.0(H) 35.7 - 48.1 fL [facility] NRBC abs 0.00 0.00 - 0.01 K/cumm [facility] Blood 12/31/2020 5:14 AM CDT 12/31/2020 5:43 AM CDT us Kristin Sorto MD LAB BLOOD ORDERABLES Briana l Result [facility] Department [place] [address] * Surgical pathology (12/30/2020 12:16 PM CDT) Placenta 12/30/2020 12:1 6 PM CDT 12/31/2020 8:10 AM CDT Narrative 01/05/2021 3:16 PM LEASE ATTENDANT EPIC results best viewed via link to PDF [facility] [facility] [place] [address] Note to Patients: This report may contain [...] can answer questions and explain the details. SURGICAL PATHOLOGY REPORT FINAL Patient Name: ?? CARITO BOWEN Gender: ??F : ??1990 (Age: 30) Address: ??[address] [place] [id number] Hospital #: ??[id number] Taken:12/30/2020 Received:12/31/2020 Reported: 01/05/2021 Patient Type: [facility] Inpatient ?? Service: Obstetrics BJ Location: [facility] ??6800 Physician(s): ??Zane Hayden M.D. Diagnosis: Placenta, delivery ? - 507.0 gram, appropriate for gestational age, delivery johnson placenta - Trivascular umbilical cord with marginal insertion and history of placenta previa - membranes with focal acute deciduitis without evidence of acute chorioamnionitis - Basal plate and subchorionic fibrin deposition - Patchy areas of accelerated villous maturation [facility]/01/05/2021 10:24 By this signature, I attest that the above diagnosis is based upon my personal examination of the slides(and/or other material indicated in the diagnosis). Varun Dillon M.D. Report Electronically Reviewed and Signed Out By ??Varun Dillon M.D. 01/05/2021 15:16:43 Microscopic Description and Comment: Microscopic examination substantiates the above cited diagnosis. Riccardo Perdue M.D. History: The patient is a 30-year-old woman, , who delivered at 36 weeks () to a female . was complicated by placenta previa, maternal lupus (on hydroxychloroquine and prednisone, status post normal testing), adrenal insufficiency, iron deficiency anemia, marginal cord insertion, and GBS positivity. Operative procedure: section (delivered viable female ) Specimen(s) Received: A: Placenta, ??third trimester, gestational age 36.0 weeks Gross Description: The specimen is received fresh, labeled with the patient's name and medical record number. It consists of a single 17.5 x 12.6 x 3.07 placental disc with attached cord and membranes. ??The 2.0 cm length by 0.9 cm diameter three vessel umbilical cord inserts marginally. ??No knots, hemorrhage, or other lesions are identified. The detached portion of unremarkable umbilical cord is also present, measuring 17.0 cm in length with the same diameter. ??The membranes are altamirano, translucent and attached to the disc margin, and have a site of rupture 12.5 cm from the nearest disc margin. It weighs 507.0 grams (trimmed). The surface is reddish altamirano in color, though there are areas that have more of a bluegray appearance. The vessels arborize in the normal pattern and are unremarkable. ??The maternal surface is complete, though one cotyledon is very tenuously attached to the rest of the placenta, and many of the cotyledons appear macerated. ??Sections show that parenchyma closest to the surface is a darker red, with the basal plate and adjacent area being dark altamirnao in color throughout the placenta. Intervening parenchyma is the normal spongy consistency and red color. There are no hematomas or other lesions appreciated on sectioning. Labeled A1 - umbilical cord; A2 - membranes; A3- A4- normal placenta. ??Jar 3. [facility]/01/03/2021 14:57 Gross Resident:Riccardo Perdue M.D. By this signature, I attest that the above diagnosis is based upon my personal examination of the slides(and/or other material). Addenda/Procedures The performance characteristics of some immunohistochemical stains, fluorescence in-situ hybridization tests and immunophenotyping by flow cytometry cited in this report (if any) were determined by the Surgical Pathology and Flow Cytometry Departments at [facility] as part of an ongoing quality assurance director program and in compliance with federally mandated [...] a high complexity laboratory under CLIA '88. ??The FDA has determined that such clearance or approval is not necessary. ??This test is used for clinical purposes. ??It should not be regarded as investigational or for research. ??Nevertheless, federal rules concerning the medical use of analyte specific reagents require that the following disclaimer be attached to the report: This test was developed and its performance characteristics determined by the Surgical Pathology and Flow Cytometry Departments of [facility]. ??It has not been cleared or approved by the U. S. Food and Drug Administration. IMAGES AND SCANNED DOCUMENTS, IF INCLUDED, ONLY VIEWABLE IN PDF VERSION OF REPORT Zane Hayden MD LAB PATHOLOGY ORDERABLES Final Result * Prepare RBC: 2 Units (12/30/2020 10:56 AM CDT) Product code [id number] [facility] Unit Number [id number] 2-B [facility] Product Blood Type APOS [facility] Dispense Status RETURNED [facility] Product code [id number] [facility] Unit Number [id number] 8-W [facility] Product Blood Type APOS [facility] Dispense Status RETURNED [facility] Blood 12/30/2020 10:5 6 AM CDT 12/30/2020 10:56 AM CDT Narrative [facility] - 12/31/2020 8:51 AM CDT Are special requirements needed? (all products are leukoreduced)->No Donor Source->Allogeneic Has the patient been transfused in the past 3 months?->No Has the patient been in the past 3 months?->No Date required:-[id number] LRRBC # of [id number] Reasons:-Hemorrhagic shock/Life-threatening bleeding} Kristin Sorto MD BLOOD BANK PRODUCT ORDERA BLES Final Result Performing Organization Address [facility] Co de Phone Number [facility] [place] [address] * RPR (12/30/2020 10:08 AM CDT) RPR Nonreactive Nonreactive [facility] Blood 12/30/2020 10:0 8 AM CDT 12/30/2020 10:25 AM CDT Kristin Sorto MD LAB MICROBIOLOGY - GENERA L ORDERABLES Final Result Performing Organization Address [facility] Co de Phone Number [facility] [place] [address] * Type and screen (12/30/2020 10:08 AM CDT) Jose Antonio, indirect Negative [facility] ABO Rh A Positive [facility] Blood 12/30/2020 10:0 8 AM CDT 12/30/2020 10:19 AM CDT Narrative [facility] - 12/30/2020 11:08 AM CDT Has the patient had Daratumumab or Isatuximab in the past 6 months?->Unknown Kristin Sorto MD LAB BLOOD BANK TEST ORDER ANAHI Final Result Performing Organization Address [facility] Co de Phone Number [facility] [place] [address] documented in this encounter Visit Diagnoses Diagnosis Generalized anxiety disorder Marginal insertion of umbilical cord affecting management of mother in second trimester Placenta previa Polyhydramnios in third trimester, not applicable or unspecified fetus Supervision of high-risk , unspecified trimester delivery delivery, without mention of indication, delivered, with or without mention of antepartum condition Generalized anxiety disorder Marginal insertion of umbilical cord affecting management of mother in second trimester Placenta previa specified as without hemorrhage in second trimester Polyhydramnios in third trimester, not applicable or unspecified fetus Supervision of high-risk , unspecified trimester documented in this encounter Admitting Diagnoses Diagnosis Generalized anxiety disorder Marginal insertion of umbilical cord affecting management of mother in second trimester Placenta previa specified as without hemorrhage in second trimester Polyhydramnios in third trimester, not applicable or unspecified fetus Supervision of high-risk , unspecified trimester documented in this encounter Administered Medications Inactive Administered Medications - up to 3 most recent administrations Medication Order MAR Action Action Date Dose Rate Site acetaminophen (TYLENOL) tablet 1,000 mg 1,000 mg, oral, Every 6 hours, First dose on Sun12/31/20 at 1515, Start in 24 hours after Anesthesia no longer covering., Indications: PainIndications:Pain Given 01/03/2021 4:21 PM LEASE ATTENDANT 1,000 mg Given 01/03/2021 9:21 AM LEASE ATTENDANT 1,000 mg Given 01/03/2021 3:32 AM LEASE ATTENDANT 1,000 mg cetirizine (ZyrTEC) tablet 10 mg 10 mg, oral, Daily, First dose on 01/03/21 at 1045 Given 01/03/2021 10:38 AM LEASE ATTENDANT 10 mg cyclobenzaprine (FLEXERIL) tablet 5 mg 5 mg, oral, 3 times daily PRN, muscle spasms, Starting on 01/01/21 at 1943 Given 01/02/2021 6:29 AM LEASE ATTENDANT 5 mg Given 01/01/2021 8:33 PM CDT 5 mg diphenhydrAMINE (BENADRYL) tab/cap 25 mg 25 mg, oral, Nightly PRN, sleep, Starting on 12/31/20 at 0023 Given 01/01/2021 7:31 PM CDT 25 mg Given 12/31/2020 12:39 AM CDT 25 mg docusate sodium (COLACE) capsule 100 mg 100 mg, oral, 2 times daily, First dose on Rachel 12/30/20 at 1415, Hold if diarrhea., Indications: constipation, Stool SoftenerIndications:constipation,Stool Softener Given 01/03/2021 8:05 AM LEASE ATTENDANT 100 mg Given 01/02/2021 9:38 PM LEASE ATTENDANT 100 mg Given 01/02/2021 2:40 PM LEASE ATTENDANT 100 mg enoxaparin (LOVENOX) syringe 40 mg 40 mg, subcutaneous, Daily (for enoxaparin), First dose on Sun12/31/20 at 2100, Indications: Deep Vein Thrombosis PreventionIndications:Deep Vein Thrombosis Prevention hydrOXYchloroQUINE (PLAQUENIL) tablet 200 mg 200 mg, oral, Daily, First dose (after last modification) on Sun01/02/21 at 0900, Do not crush, break, or open. Administer with food to decrease GI adverse effects if tolerating a diet. Oral liquid is preferred for per tube administration. tered if oral liquid is unavailable. Given 01/02/2021 7:32 PM LEASE ATTENDANT 200 mg hydrOXYzine (ATARAX) tablet 25 mg 25 mg, oral, Every 4 hours PRN, anxiety, Starting on Sun12/31/20 at 1435 ibuprofen (ADVIL,MOTRIN) tablet 600 mg 600 mg, oral, Every 6 hours, First dose on Sun12/31/20 at 1515, Start in 24 hours after Anesthesia no longer covering., Indications: CrampsIndications:Cramps Given 01/03/2021 12:53 PM LEASE ATTENDANT 600 mg Given 01/03/2021 6:49 AM LEASE ATTENDANT 600 mg Given 01/02/2021 11:35 PM LEASE ATTENDANT 600 mg lidocaine (LIDODERM) 5 % patch 2 patch 2 patch, transdermal, Administer over 12 Hours, Daily, First dose on Sun12/31/20 at 1300, Do not cover the holes on the top side of the patch., Apply to affected area: abdomen Medication Applied 01/02/2021 7:31 PM LEASE ATTENDANT 2 patches Other (Comment) Medication Applied 01/01/2021 10:30 PM CDT 2 patches Other (Comment) Medication Applied 12/31/2020 12:51 PM CDT 2 patches Other (Comment) ondansetron (ZOFRAN) injection 4 mg 4 mg, intravenous, Administer over 2 Minutes, Every 6 hours PRN, nausea, vomiting, if not tolerating PO, Starting on Sun12/31/20 at 1103, Start in 24 hours after Anesthesia no longer covering., Indications: Nausea and VomitingIndications:Nausea and Vomiting ondansetron ODT (ZOFRAN-ODT) disintegrating tablet 4 mg 4 mg, oral, Every 6 hours PRN, nausea, vomiting, Starting on Sun12/31/20 at 1103, Start in 24 hours after Anesthesia no longer covering., Indications: Nausea and VomitingIndications:Nausea and Vomiting Given 01/01/2021 10:33 AM CDT 4 m g Given 01/01/2021 12:27 AM CDT 4 mg oxyCODONE (ROXICODONE) tablet 5 mg 5 mg, oral, Every 4 hours PRN, 1st line for pain, Starting on Sun12/31/20 at 1503, May administer 1 hour after 1st line agent for uncontrolled or increasing pain. Start in 24 hours after Anesthesia no longer covering., Indications: PainIndications:Pain Given 01/03/2021 4:49 PM LEASE ATTENDANT 5 mg Given 01/03/2021 12:20 PM LEASE ATTENDANT 5 mg Given 01/03/2021 6:49 AM LEASE ATTENDANT [address] (PROTONIX) extended release tablet 40 mg 40 mg, oral, Daily, First dose on Sun01/03/21 at 0830, Do not crush, chew, cut, dissolve, open or otherwise manipulate tablet/capsule., Indications: Stress Ulcer ProphylaxisIndications:Stress Ulcer Prophylaxis PNV with ucdwuft-[id number]-ZT tablet 1 tablet 1 tablet, oral, Daily, First dose on Sun12/30/20 at 1415, Begin when normal bowel activity resumes., Indications: Vitamin Deficiency PreventionIndications:Vitamin Deficiency Prevention Given 01/03/2021 7:31 AM LEASE ATTENDANT 1 tablet Given 01/02/2021 3:34 PM LEASE ATTENDANT 1 tablet Given 12/31/2020 10:20 AM CDT 1 tablet predniSONE (DELTASONE) tablet 7.5 mg 7.5 mg, oral, Daily, First dose (after last modification) on Sun01/03/21 at 0900 Given 01/03/2021 7:31 AM LEASE ATTENDANT 7.5 mg ramelteon (ROZEREM) tablet 8 mg 8 mg, oral, Nightly, First dose on Sun12/31/20 at 2100, Indications: Sleep-Onset InsomniaIndications:Sleep-Onset Insomnia sertraline (ZOLOFT) tablet 50 mg 50 mg, oral, Daily, First dose on Sun12/30/20 at 1700 Given 01/02/2021 7:33 PM LEASE ATTENDANT 50 mg Given 01/01/2021 6:37 PM CDT 50 mg Given 12/31/2020 11:54 AM CDT 50 mg simethicone (MYLICON) chewable tablet 80 mg 80 mg, oral, 4 times daily PRN (after meals, bedtime), flatulence, Starting on Rachel 12/30/20 at 1340, Indications: FlatulenceIndications:Flatulence Given 01/02/2021 7:45 AM LEASE ATTENDANT 80 mg Given 01/01/2021 10:19 AM CDT 80 mg Given 12/31/2020 8:22 PM CDT 80 mg sodium chloride 0.9% irrigation As needed, Starting on Rachel 12/30/20 at 1212, Intra-Op Given 12/30/2020 12:12 PM CDT 1,000 mL Surgical Site sterile water irrigation As needed, Starting on Rachel 12/30/20 at 1212, Intra-Op Given 12/30/2020 12:12 PM CDT 1,000 mL Other (Comment) valACYclovir (VALTREX) tablet 500 mg 500 mg, oral, Daily, First dose on 01/03/21 at 1500, Indications: Chronic SuppressionIndications:Chronic Suppression Given 01/03/2021 2:24 PM LEASE ATTENDANT 500 mg documented in this encounter Discontinued Medications Medication Sig Discontinue Reason Start Date End Da te omeprazole (PriLOSEC) 20 mg capsule Take 20 mg by mouth daily Stop Taking at Discharge 06/21/2019 01/03/2021 valACYclovir (VALTREX) 500 mg tablet TAKE 1 TAB BY MOUTH 3 TIMES DAILY FOR 7 DAYS. Stop Taking at Discharge 12/03/2019 01/03/2021 aspirin 81 mg enteric coated tablet Take 81 mg by mouth daily Stop Taking at Discharge 01/03/2021 predniSONE (DELTASONE) 5 mg tablet TAKE 2 TABLETS(10 MG) BY MOUTH DAILY Stop Taking at Discharge 10/23/2020 01/03/2021 cyclobenzaprine (FLEXERIL) 5 mg tablet Take 1 tablet (5 mg total) by mouth 2 (two) times a day as needed for muscle spasms Stop Taking at Discharge 12/18/2020 01/03/2021 documented as of this encounter Active and Recently Administered Medications Due to Daylight Saving Time, this section may contain times in both CDT and LEASE ATTENDANT. Scheduled Medication Order 01/01/2021 01/02/2021 01/03/2021 acetaminophen (TYLENOL) tablet 1,000 mg 1,000 mg, oral, Every 6 hours, First dose on Sun12/31/20 at 1515, Start in 24 hours after Anesthesia no longer covering., Indications: Pain 0019 (Given - Provider: eLti Garcia RN - Comment: dropped 1 tab)0029 (Given - Provider: Leti Garcia RN - Comment: 500 mgh given at this time, dropped 500mg a few minutes ago)0747 (Given - Provider: Leti Garcia RN)1354 (Given - Provider: Radha Bright, PRO)1515 (Hold - Provider: Radha Bright RN - Reason: Order parameters not met)2033 (Given - Provider: Leti Gacria RN) 0215 (Given - Provider: Leti Garcia RN)0931 (Given - Provider: Radha Bright RN)1535 (Given - Provider: Radha Bright RN)2139 (Given - Provider: Leti Garcia RN) 0332 (Given - Provider: Leti Garcia RN)0921 (Given - Provider: Roro Waldrop, PRO)1621 (Given - Provider: Roro Waldrop, PRO) cetirizine (ZyrTEC) tablet 10 mg 10 mg, oral, Daily, First dose on 01/03/21 at 1045 1038 (Given - Provider: Roro Waldrop, PRO) docusate sodium (COLACE) capsule 100 mg 100 mg, oral, 2 times daily, First dose on Rachel 12/30/20 at 1415, Hold if diarrhea., Indications: constipation, Stool Softener 0716 (Held by Provider - Provider: Juana Ivory MD - Reason: Other - Comment: diarrhea)0900 (Dose Auto Held - Provider: Juana Ivory MD)2100 (Dose Auto Held - Provider: Juana Ivory MD) 0900 (Dose Auto Held - Provider: Juana Ivory MD)1355 (Unheld by Provider - Provider: Lexi Gates MD)1440 (Given - Provider: Radha Bright RN - Comment: pt request)2137 (Given - Provider: Leti Garcia RN) 0805 (Given - Provider: Roro Waldrop RN) enoxaparin (LOVENOX) syringe 40 mg 40 mg, subcutaneous, Daily (for enoxaparin), First dose on Sun12/31/20 at 2100, Indications: Deep Vein Thrombosis Prevention 2034 (Not Given - Provider: Leti Garcia RN - Reason: Patient/family refused) 2139 (Not Given - Provider: Leti Garcia RN - Reason: Patient/family refused) hydrOXYchloroQUINE (PLAQUENIL) tablet 200 mg 200 mg, oral, Daily, First dose (after last modification) on Sun01/02/21 at 0900, Do not crush, break, or open. Administer with food to decrease GI adverse effects if tolerating a diet. Oral liquid is preferred for per tube administration. tered if oral liquid is unavailable. 1931 (Given - Provider: Radha Bright RN - Comment: Pt reports she takes this nightly) hydrOXYchloroQUINE (PLAQUENIL) tablet 400 mg (CANCELED) 400 mg, oral, Daily, First dose (after last modification) on Sun01/01/21 at 0900, Do not crush, break, or open. Administer with food to decrease GI adverse effects if tolerating a diet. Oral liquid is preferred for per tube administration. tered if oral liquid is unavailable. 183 (Given - Provider: Radha Bright RN - Comment: Pt request for this timeframe, pt only takes 200mg) ibuprofen (ADVIL,MOTRIN) tablet 600 mg 600 mg, oral, Every 6 hours, First dose on Sun12/31/20 at 1515, Start in 24 hours after Anesthesia no longer covering., Indications: Cramps 0510 (Given - Provider: Leti Garcia, PRO)1221 (Given - Provider: Radha Bright RN)1832 (Given - Provider: Radha Bright RN) 0031 (Given - Provider: Leti L. Jose, RN)0629 (Given - Provider: Leti Garcia RN)1118 (Given - Provider: Radha Bright, PRO)1745 (Given - Provider: Radha Bright RN)2335 (Given - Provider: Leti Garcia RN) 0649 (Given - Provider: Leti Garcia RN)1253 (Given - Provider: Roro Waldrop RN) lidocaine (LIDODERM) 5 % patch 2 patch 2 patch, transdermal, Administer over 12 Hours, Daily, First dose on Sun12/31/20 at 1300, Do not cover the holes on the top side of the patch., Apply to affected area: abdomen 0030 (Medication Removed - Provider: Leti Garcia RN)1048 (Hold - Provider: Radha Bright RN - Reason: Patient/family refused)2230 (Medication Applied - Provider: Leti Garcia RN - Comment: ABD and lumbar) 0859 (Due: Medication Removed - Provider: Leti Garcia RN)1931 (Medication Applied - Provider: Radha Bright RN - Comment: abdomen and front) 0650 (Medication Removed - Provider: Leti Garcia RN) pantoprazole DR (PROTONIX) extended release tablet 40 mg 40 mg, oral, Daily, First dose on 01/03/21 at 0830, Do not crush, chew, cut, dissolve, open or otherwise manipulate tablet/capsule., Indications: Stress Ulcer Prophylaxis 0914 (Not Given - Provider: Roro Waldorp RN - Reason: Patient/family refused - Comment: Pt prefers to take at night) PNV with [id number]-fsxy-ML tablet 1 tablet 1 tablet, oral, Daily, First dose on Rachel 12/30/20 at 1415, Begin when normal bowel activity resumes., Indications: Vitamin Deficiency Prevention 1049 (Hold - Provider: Radha Bright RN - Reason: Patient/family refused) 1534 (Given - Provider: Radha Bright RN - Comment: pt request) 0731 (Given - Provider: Leti Garcia RN) predniSONE (DELTASONE) tablet 10 mg (COMPLETED) 10 mg, oral, Once, On 01/01/21 at 0745, For 1 dose 0747 (Given - Provider: Leti Garcia RN) predniSONE (DELTASONE) tablet 10 mg (COMPLETED) 10 mg, oral, Once, On 01/02/21 at 0900, For 1 dose 0745 (Given - Provider: Radha Bright RN - Comment: pt request) predniSONE (DELTASONE) tablet 5 mg (COMPLETED) 5 mg, oral, Once, On 01/01/21 at 1500, For 1 dose 1624 (Given - Provider: Radha Bright, PRO) predniSONE (DELTASONE) tablet 5 mg (COMPLETED) 5 mg, oral, Once, On 01/02/21 at 1500, For 1 dose 1440 (Given - Provider: Radha Bright RN) predniSONE (DELTASONE) tablet 7.5 mg 7.5 mg, oral, Daily, First dose (after last modification) on Sun01/03/21 at 0900 0731 (Given - Provider: Leti Garcia RN - Comment: per pt request) ramelteon (ROZEREM) tablet 8 mg 8 mg, oral, Nightly, First dose on Sun12/31/20 at 2100, Indications: Sleep-Onset Insomnia 2049 (Not Given - Provider: Leti Garcia RN - Reason: Patient/family refused) 214 (Not Given - Provider: Leti Garcia RN - Reason: Patient/family refused) sertraline (ZOLOFT) tablet 50 mg 50 mg, oral, Daily, First dose on Sun12/30/20 at 1700 1837 (Given - Provider: Radha Bright, PRO) 1933 (Given - Provider: Radha Bright RN - Comment: Pt reports she takes this nightly) valACYclovir (VALTREX) tablet 500 mg 500 mg, oral, Daily, First dose on Sun01/03/21 at 1500, Indications: Chronic Suppression 1424 (Given - Provider: Roro Waldrop, PRO) Continuous Medication Order 01/01/2021 01/02/2021 01/03/2021 Lactated Ringer's (LR) infusion(Linked Group 1) 125 mL/hr, intravenous, Continuous, Starting on Rachel 12/30/20 at 1815, Until regular diet. PRN Medication Order 01/01/2021 01/02/2021 01/03/2021 cyclobenzaprine (FLEXERIL) tablet 5 mg 5 mg, oral, 3 times daily PRN, muscle spasms, Starting on 01/01/21 at 1943 2032 (Given - Provider: Leti Garcia RN) 0629 (Given - Provider: Leti Garcia RN)1344 (Return to [facility] - Provider: Emely Rosario RN) diphenhydrAMINE (BENADRYL) tab/cap 25 mg 25 mg, oral, Nightly PRN, sleep, Starting on 12/31/20 at 0023 1931 (Given - Provider: Radha Bright RN) hydrocortisone (ANUSOL-HC) 2.5 % rectal cream rectal, 3 times daily PRN, itching, irritation, Starting on Rachel 12/30/20 at 1340, Indications: Hemorrhoids hydrOXYzine (ATARAX) tablet 25 mg 25 mg, oral, Every 4 hours PRN, anxiety, Starting on 12/31/20 at 1435 ondansetron (ZOFRAN) injection 4 mg(Linked Group 2) 4 mg, intravenous, Administer over 2 Minutes, Every 6 hours PRN, nausea, vomiting, if not tolerating PO, Starting on Sun12/31/20 at 1103, Start in 24 hours after Anesthesia no longer covering., Indications: Nausea and Vomiting 0027 (See Alternative - Provider: Leti Garcia RN)1033 (See Alternative - Provider: Radha Bright RN) ondansetron ODT (ZOFRAN-ODT) disintegrating tablet 4 mg(Linked Group 2) 4 mg, oral, Every 6 hours PRN, nausea, vomiting, Starting on Sun12/31/20 at 1103, Start in 24 hours after Anesthesia no longer covering., Indications: Nausea and Vomiting 0027 (Given - Provider: Leti Garcia RN)1033 (Given - Provider: Radha Bright, PRO) oxyCODONE (ROXICODONE) tablet 5 mg 5 mg, oral, Every 4 hours PRN, 1st line for pain, Starting on Sun12/31/20 at 1503, May administer 1 hour after 1st line agent for uncontrolled or increasing pain. Start in 24 hours after Anesthesia no longer covering., Indications: Pain 0309 (Given - Provider: Leti Garcia RN)1354 (Given - Provider: Radha Bright, PRO)2239 (Given - Provider: Leti Garcia, PRO) 0339 (Given - Provider: Caitlin Cintron RN)0931 (Given - Provider: Radha Bright RN)1339 (Given - Provider: Emely Rosario RN)1745 (Given - Provider: Radha Bright, PRO)2139 (Given - Provider: Leti Garcia RN) 0137 (Given - Provider: Leti Garcia RN)0649 (Given - Provider: Leti Garcia, PRO)1220 (Given - Provider: Roro Waldrop, PRO)1649 (Given - Provider: Roro Waldrop RN) simethicone (MYLICON) chewable tablet 80 mg 80 mg, oral, 4 times daily PRN (after meals, bedtime), flatulence, Starting on Rachel 12/30/20 at 1340, Indications: Flatulence 1019 (Given - Provider: Radha Bright RN) 0745 (Given - Provider: Radha Bright RN) Linked Groups Order Group 1: oxytocin 30 unit/500 mL (0.06 unit/mL) in sodium chloride 0.9% (premix) solution () 95-334 milliunits/min (95-334 mL/hr), 0.06 units/mL, intravenous, Titrated, Starting on Rachel 12/30/20 at 1415, Until Rachel 12/30/20 at 1814, Indications: Hemorrhage Prevention, 334 arnold-units/minutes for 30 minutes then decrease infusion to 95 arnold-units/min for 3.5 hours. , Routine Followed by Lactated Ringer's (LR) infusionJump to med 125 mL/hr, intravenous, Continuous, Starting on Rachel 12/30/20 at 1815, Until regular diet. Group 2: ondansetron ODT (ZOFRAN-ODT) disintegrating tablet 4 mgJump to med 4 mg, oral, Every 6 hours PRN, nausea, vomiting, Starting on Sun12/31/20 at 1103, Start in 24 hours after Anesthesia no longer covering., Indications: Nausea and Vomiting Or ondansetron (ZOFRAN) injection 4 mgJump to med 4 mg, intravenous, Administer over 2 Minutes, Every 6 hours PRN, nausea, vomiting, if not tolerating PO, Starting on Sun12/31/20 at 1103, Start in 24 hours after Anesthesia no longer covering., Indications: Nausea and Vomiting documented in this encounter Orders Medications Ordered That Omer ht Not Have Been Administered Count Last Ordered Date First Ordered Date cetirizine (ZyrTEC) tablet 10 mg 1 01/04/[address] (PROTONIX) e xtended release tablet 40 mg 1 01/03/2021 valACYclovir (VALTREX) tablet 500 mg 1 09/2020 hydrOXYchloroQUINE (PLAQUENI L) tablet 200 mg 2 01/02/2021 12/30/2020 predniSONE (DELTASONE) tablet 7.5 mg 2 08/202012/30/2020 cyclobenzaprine (FLEXERIL) tablet 5 mg 1 hydrOXYchloroQUINE (PLAQUENI L) tablet 400 mg 2 01/01/2021 12/30/2020 predniSONE (DELTASONE) tablet 10 mg 2 01/01 predniSONE (DELTASONE) tablet 5 mg 4 2020 sertraline (ZOLOFT) tablet 25 mg 2 01/02/20 21 12/30/2020 diphenhydrAMINE (BENADRYL) tab/cap 25 mg 2 12/31/2020 12/30/2020 enoxaparin (LOVENOX) syringe 40 mg 1 2020 hydrOXYzine (ATARAX) tablet 25 mg 1 021 lidocaine (LIDODERM) 5 % patch 2 patch 1 polyethylene glycol (MIRALAX) packet 17 g 2 12/31/2020 12/30/2020 predniSONE (DELTASONE) tablet 15 mg 1 12/31 ramelteon (ROZEREM) tablet 8 mg 1 acetaminophen (TYLENOL) tablet 1,000 mg 2 1 03/01/2020 ceFAZolin (ANCEF) 2,000 mg/2 0 mL in sterile water (premix) 2,000 mg 1 12/30/2020 clindamycin (CLEOCIN) 600 mg /50 mL in sodium chloride 0.9% (premix) piggyback 600 mg 1 12/30/2020 clindamycin (CLEOCIN) 900 mg /50 mL in sodium chloride 0.9% (premix) piggyback 900 mg 1 12/30/2020 diphenhydrAMINE (BENADRYL) injection 25 mg 1 12/30/2020 docusate sodium (COLACE) capsule 100 mg 1 1 03/01/2020 gentamicin (GARAMYCIN) 130 m g in sodium chloride 0.9% 13 mL (10 mg/mL) syringe 1 12/30/2020 gentamicin 300 mg/30 mL in s odium chloride 0.9% (premix) - ADS Override Pull 1 12/30/2020 hydrocortisone (ANUSOL-HC) 2 .5 % rectal cream 1 12/30/2020 hydrocortisone (Solu-CORTEF) preservative free injection 100 mg 1 12/30/2020 hydrocortisone (Solu-CORTEF) preservative free injection 200 mg 1 12/30/2020 hydrocortisone (Solu-CORTEF) preservative free injection 50 mg 1 12/30/2020 HYDROmorphone (DILAUDID) injection 0.2 mg 1 12/30/2020 HYDROmorphone (DILAUDID) injection 0.4 mg 1 12/30/2020 ibuprofen (ADVIL,MOTRIN) tablet 600 mg 1 ketorolac (TORADOL) injection 30 mg 1 12/30 Lactated Ringer's (LR) bolus 1,000 mL 1 05/2020 Lactated Ringer's (LR) infusion 1 nalbuphine (NUBAIN) injection 5 mg 1 2020 naloxone (NARCAN) 0.4 mg/mL injection 0.04-0.4 mg 2 12/30/2020 ondansetron (ZOFRAN) injection 4 mg 2 12/30 ondansetron ODT (ZOFRAN-ODT) disintegrating tablet 4 mg 2 12/30/2020 oxyCODONE (ROXICODONE) tablet 5 mg 2 2020 oxytocin 30 unit/500 mL (0.0 6 unit/mL) in sodium chloride 0.9% (premix) solution 1 12/30/2020 PNV with cnmhoid-nzuz-GR tablet 1 tablet 1 12/30/2020 senna (SENOKOT) tablet 1 tablet 1 sertraline (ZOLOFT) tablet 50 mg 2 12/31/19 21 simethicone (MYLICON) chewab le tablet 80 mg 1 12/30/2020 sodium chloride 0.9% flush 0.5-20 mL 4 05/2020 tranexamic acid (CYKLOKAPRON ) 1,000 mg/100 mL (10 mg/mL) in sodium chloride (premix) - ADS Override Pull 1 12/30/2020 Nursing Count Last Ordered Date First Orde red Date BREAST PUMP TO BED 1 12/30/2020 HEIGHT AND WEIGHT 1 12/30/2020 NURSING COMMUNICATION 4 12/30/2020 SKIN PREP 2 12/30/2020 VERIFY INFORMED CONSENT 1 12/30/2020 Consult Count Last Ordered Date First Orde red Date IP CONSULT TO SOCIAL WORK 1 12/31/2020 CORE MEASURES Count Last Ordered Date First Ord ered Date REASON FOR NO VTE PROPHYLAXIS AT ADMISSION 1 12/30/2020 documented in this encounter Care Teams Crystal Evaluator Relationship Specialty [place] [id number] [address] [place] [id number] PCP - General 07/04/19 [place] [address] [address] [place] [id number] 11/16/18 Ernie Shaw MD [address] [place] [address] [address] [place] [address] Strategies Analyst Obstetrics and Gynecology 06/10/20 documented as of this encounter
--- OUTSIDE RECORDS SUMMARY | 2024-02-24 20:02 | XMS_ITS | Encounter Summary ---
Author Organization [facility] Healthcare Address [address] [place] [address] Care Team Providers Care Shoe Stock Associate Name Role Phone Huseyin Dangelo MD Unavailable [phone] Brian Mon MD Primary Care Provider + Ernie Shaw MD Unavailable [phone] Reason for Visit * Reason Comments Problem multiple complaints/ concerns...breast, incision and labwork. Encounter Details Date Type Department Care Team (Latest Contact Info) Description 01/05/2021 11:08 AM FISH HATCHERY SUPERVISOR - 01/05/2021 12:25 PM FISH HATCHERY SUPERVISOR Hospital Encounter [address] [id number] Dilan Riley MD [address] [facility] [phone] [place] [address] Discharge Disposition: Discharge to home or self [...] Sign Reading Time Taken Comments Blood Pressure 123/74 01/05/2021 11:20 AM FISH HATCHERY SUPERVISOR Pulse 88 01/05/2021 11:21 AM FISH HATCHERY SUPERVISOR Temperature 36.9 ??C (98.5 ??F) 01/05/2021 11:[address] Respiratory Rate - - Oxygen Saturation 99% 01/05/2021 11:20 AM FISH HATCHERY SUPERVISOR Inhaled Oxygen Concentration - - Weight - - Height - - Body Mass Index - - documented in this encounter Discharge Diagnoses Diagnosis Pyrexia of unknown origin following delivery - PYREXIA OF UNKNOWN ORIGIN FOLLOWING DELIVERY Other specified bacterial agents as the cause of diseases classified elsewhere - OTHER SPECIFIED BACTERIAL AGENTS THE CAUSE OF DISEASES CLASSIFIED ELSEWHERE Anemia of the puerperium - ANEMIA OF THE PUERPERIUM Anemia, unspecified - ANEMIA, UNSPECIFIED Other complications of the puerperium, not elsewhere classified - OTHER COMPLICATIONS OF THE PUERPERIUM, NOT ELSEWHERE CLASSIFIED 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) ([facility]) - GLOMERULAR DISEASE IN SYSTEMIC LUPUS ERYTHEMATOSUS Chronic kidney disease, unspecified - CHRONIC KIDNEY DISEASE, UNSPECIFIED Other mental disorders complicating the puerperium - OTHER MENTAL DISORDERS COMPLICATING THE PUERPERIUM Anxiety disorder, unspecified - ANXIETY DISORDER, UNSPECIFIED Depression, unspecified - DEPRESSION, UNSPECIFIED Diseases of the respiratory system complicating the puerperium - DISEASES OF THE RESPIRATORY SYSTEM COMPLICATING THE PUERPERIUM Unspecified asthma, uncomplicated - UNSPECIFIED ASTHMA, UNCOMPLICATED Rheumatoid arthritis, unspecified (HCC) - RHEUMATOID ARTHRITIS, UNSPECIFIED Diseases of the digestive system complicating the puerperium - DISEASES OF THE DIGESTIVE SYSTEM COMPLICATING THE PUERPERIUM Noninfective gastroenteritis and colitis, unspecified - NONINFECTIVE GASTROENTERITIS AND COLITIS, UNSPECIFIED Personal history of nicotine dependence - PERSONAL HISTORY OF NICOTINE DEPENDENCE Other termite renewal inspector (current) drug therapy - OTHER CLOTH PRESSER (CURRENT) DRUG THERAPY [facility] (current) use of opiate analgesic - ASSISTED (CURRENT) USE OF OPIATE ANALGESIC [facility] (current) use of non-steroidal anti-inflammatories (nsaid) - ASSISTED (CURRENT) USE OF NON-STEROIDAL ANTI-INFLAMMATORIES (NSAID) documented in this encounter Medications at Time [...] 30 tablet 11 01/03/2021 3 PNV with qevtsmg-dxbg-AM 27 mg iron- 1 mg tabletIndications :Vitamin Deficiency Prevention Take 1 tablet by mouth daily 30 tablet 1 01/04/2021 3 predniSONE (DELTASONE) 2.5 mg tablet Take 3 tablets (7.5 mg) by mouth daily 30 tablet 2 01/04/2021 2 vit no.842-spup-kxrhj (Classic ) 28 mg iron- 800 mcg [...] H&P Notes * Neisha Arevalo MD - 01/05/2021 11:39 AM CST Images from the original note were not included. [facility] Triage Note Chief Complaint: generalized pain Provider: RENETTA HPI: Carito Madison is a 30 y.o. female day 6 S/P primary LTCS who [facility] for complaints of low grade temp of 100.4 at home that resolved withpumping. Reports some generalized breast discomfort and abd discomfort. Denies incisional pain. States she has had some nausea and occasional diarrhea that has continued since delivery. Reports a decr ease in appetite r/t fear of diarrhea. Denies feeling unwell but that she is concerned she had a abd infection since they did not do any lab work after I delivered. Reviewed lab results and v/u. Her is complicated by complete previa, marginal cord insertion, Delivery complicated by PPH course uncomplicated OB History Para Term AB Living 3 1 0 1 2 1 SAB IAB Ectopic Multiple Live Births 2 0 0 0 1 # Outcome Date GA Lbr Rojas/2nd Weight Sex Delivery Anes PTL Lv 3 12/30/20 36w0d 3300 g (7 lb 4.4 oz) F CS-LTranv Spinal N ALEXIA Complications: Placenta Previa, Post Hemorrhage Name: DEIRDRE MADISON Apgar1: 1 Apgar5: 3 2 2019 16w0d 1 2017 Past Medical History: Past Medical History: Diagnosis [...] Seizures (CMS/HCC) (HCC) reaction to a medication Social history: Past Surgical History: Procedure Laterality Date ??? APPENDECTOMY ??? COLONOSCOPY 07/29/2019 ??? DILATION AND CURETTAGE OF UTERUS 09/2017 ??? ESOPHAGOGASTRODUODENOSCOPY 07/2019 ??? HAND SURGERY ??? WRIST SURGERY Right 12/09/2018 rt wrist median nerve repair, allograft nerve wrap application Social History Tobacco Use ??? Smoking status: Former Smoker Quit date: 12/28/2018 Years since quittin.0 ??? Smokeless tobacco: Never Used Vaping Use ??? Vaping Use: Never used Substance Use Topics ??? Alcohol use: Yes Comment: occasionally ??? Drug use: Not Currently Types: Marijuana Father of baby involved: Yes Support System: Not addressed Safe at home: Yes Family History: family history includes Colon cancer in an [...] mg capsule al & mag hydroxide with yhalemqnekw-khmjnmbtemmftxx-vgyeoyqek (MAGIC MOUTHWASH) suspension 1-1-1 cyclobenzaprine (FLEXERIL) 5 mg tablet diphenhydrAMINE (BENADRYL) 25 mg capsule docusate sodium (COLACE) 100 mg capsule ferrous gluconate (ferrous gluconate) 324 mg (37.5 mg of elemental iron) tablet hydrOXYchloroQUINE (PLAQUENIL) 200 mg tablet ibuprofen (ADVIL,MOTRIN) 600 mg tablet lidocaine (LIDODERM) 5 % oxyCODONE (ROXICODONE) 5 mg immediate release tablet pantoprazole DR (PROTONIX) 40 mg EC tablet PNV with qxvrphh-xcpj-WW 27 mg iron- 1 mg tablet predniSONE (DELTASONE) 2.5 mg tablet vit no.042-ypya-bxyke (Classic ) 28 mg iron- 800 mcg tablet ramelteon (ROZEREM) 8 mg tablet sertraline (ZOLOFT) 25 mg tablet simethicone (MYLICON) 80 mg chewable tablet Review of Systems: Negative except per HPI Vitals: Temp: [36.9 ??C (98.5 ??F)] 36.9 ??C (98.5 ??F) Pulse: [88-95] 88 BP: (123)/(74) 123/74 Physical Exam: General: NAD, mood appropriate Cardiovascular: Regular rate and rhythm Pulmonary: Clear to ausculation bilaterally Abdomen: soft, non-tender. Extremities: Warm and well perfused Breast: without redness swelling or warmth Labs: Lab Results Component Value Date WBC 11.0 (H) 01/05/2021 HGB 9.5 (L) 01/05/2021 HCT 29.4 (L) 01/05/2021 MCV 90.5 01/05/2021 LABPLAT 250 01/05/2021 Lab Results Component Value Date GLUCOSE 100 12/29/2020 CALCIUM 9.5 12/29/2020 SODIUM 137 12/29/2020 POTASSIUM 3.8 12/29/2020 CO2 18 (L) 12/29/2020 CHLORIDE 103 12/29/2020 BUNSER 5 (L) 12/29/2020 CREATININE 0.45 (L) 12/29/2020 Lab Results Component Value Date ALT 17 12/29/2020 AST 24 12/29/2020 ALKPHOS 112 12/29/2020 BILITOT 0.3 12/29/2020 No results found for: URICACID No results found for: AMYLASE Lab Results Component Value Date LIPASE 44 07/21/2019 US Ob Limited [facility] BSUS: transverse presentation Assessment and Plan Carito Madison is a 30 y.o. female day 6 who presented with multiple complaints. MWB Afebrile Breast with No firm areas or redness noted Pt recently pumped and feels well. Incision intact with steristrips. No evidence of infection noted. Reports nausea but no vomiting. Cbc ordered. Plan discussed with Dr. Arevalo. Pt left prior to sign out with provider. CBC pending. Strict return precautions. Wendi Ivey NP 01/05/21 [facility] Fellow Attestation I have discussed Carito Madison with the DIRECTOR OUTPATIENT SERVICES, eWndi Ivey on 01/05/2021. I have evaluated the patient and reviewed the treatment plan and recommendations. I agree with the findings and the plan ofcare as documented in the DIRECTOR OUTPATIENT SERVICES's note with the following addendum: Briefly, this is a 30 y.o. POD#6 from [facility] for placenta previa. She presents for nausea w/o vomiting, breast tenderness, and diarrhea. Afebrile in triage, CBC drawn with WBC 11.0, appropriate for post-operative/ setting and actually down from WBC 14.9 on .. Vitals wnl. No evidence of infection noted on exam, incision c/d/i. Return precautions reviewed with DIRECTOR OUTPATIENT SERVICES - patient left prior to evaluation by myself. Neisha Arevalo MD Maternal Medicine Fellow, PGY-5 Cosigned by Dilan Riley MD at 01/05/2021 4:00 PM FISH HATCHERY SUPERVISOR HATCHERY SUPERVISOR HATCHERY SUPERVISOR HATCHERY SUPERVISOR HATCHERY SUPERVISOR Associated attestation - Dilan Riley MD - 01/05/2021 4:00 PM FISH HATCHERY SUPERVISOR I have reviewed the above note for Carito Madison, and I agree with the documented plan by the resident/fellow/MEKHI. Dilan Riley MD 01/05/2021 documented in this encounter Nursing Notes * Christina Hubbard RN - 01/05/2021 12:34 PM CST The pt was seen for a c/o of bilateral breast pain, incision pain and the need for blood work. VSS and the pt delivered via C/S on 12/30/20. The DIRECTOR OUTPATIENT SERVICES has examined her breast and incision and no problemswere found @ this time. A blood specimen was set to the lab today and then the pt left before the DIRECTOR OUTPATIENT SERVICES reached the MD for a official discharge stating, I need to get back to my baby in the NICU. The DIRECTOR OUTPATIENT SERVICES is aware. HATCHERY SUPERVISOR documented in this encounter Miscellaneous Notes * Note - Kristin Davies RN - 01/05/2021 11:04 AM CST This note was copied from a baby's chart. Spoke with Ms. Madison on the phone. She describes feeling ill, intermittently febrile and breast tenderness and edema, particularly on right side. She reports breasts feel warm to touch with dimplingnoted on both sides. Mom was instructed to continue pumping, using heat before and cold after and to go for assessment at [facility] as soon as possible. HATCHERY SUPERVISOR HATCHERY SUPERVISOR documented in this encounter Plan of Treatment Not on file documented as of this encounter Procedures Procedure Name Priority Date/Time Associated Diagnosis Comments DIFFERENTIAL AUTO STAT 01/05/2021 12: 24 PM FISH HATCHERY SUPERVISOR CBC WITH AUTO DIFFERENTIAL STAT 01/05/2021 12:24 PM FISH HATCHERY SUPERVISOR documented in this encounter Results * (ABNORMAL) Differential, auto (01/05/2021 12:24 PM FISH HATCHERY SUPERVISOR) Neutrophil abs 9.7(H) 1.7 - 6.5 K/cumm [facility] Imm gran abs 0.1 0.0 - 0.1 K/cumm [facility] Lymphocyte abs 0.7(L) 0.8 - 3.3 K/cumm [facility] Monocyte abs 0.4 0.2 - 0.8 K/cumm [facility] Eosinophil abs 0.1 0.0 - 0.5 K/cumm [facility] Basophil abs 0.0 0.0 - 0.1 K/cumm [facility] Neutrophil pct 88.0 % [facility] Comment: Interpretive Data Percent cell count reference ranges are not reported, since discordance with absolute values may lead to misinterpretation of CBC data. Current Interpretive Data was last revised on 2017. Imm gran pct 0.7 % [facility] Comment: Interpretive Data Percent cell count reference ranges are not reported, since discordance with absolute values may lead to misinterpretation of CBC data. Current Interpretive Data was last revised on 2017. Lymphocyte pct 6.2 % [facility] Comment: Interpretive Data Percent cell count reference ranges are not reported, since discordance with absolute values may lead to misinterpretation of CBC data. Current Interpretive Data was last revised on 2017. Monocyte pct 3.8 % [facility] Comment: Interpretive Data Percent cell count reference ranges are not reported, since discordance with absolute values may lead to misinterpretation of CBC data. Current Interpretive Data was last revised on 2017. Eosinophil pct 1.0 % [facility] Comment: Interpretive Data Percent cell count reference ranges are not reported, since discordance with absolute values may lead to misinterpretation of CBC data. Current Interpretive Data was last revised on 2017. Basophil pct 0.3 % [facility] Comment: Interpretive Data Percent cell count reference ranges are not reported, since discordance with absolute values may lead to misinterpretation of CBC data. Current Interpretive Data was last revised on 2017. Blood 01/05/2021 12:2 4 PM FISH HATCHERY SUPERVISOR 01/05/2021 12:41 PM FISH HATCHERY SUPERVISOR Wendi Ivey NP LAB BLOOD ORDERABLES Briana narayan Result [facility] Department [place] [address] * (ABNORMAL) CBC with auto differential (01/05/2021 12:24 PM FISH HATCHERY SUPERVISOR) WBC 11.0(H) 3.8 - 9.9 K/cumm [facility] Hgb 9.5(L) 11.9 - 15.5 g/dL [facility] Hct 29.4(L) 35.6 - 45.5 % [facility] Plt 250 150 - 400 K/cumm [facility] MPV 9.2 9.1 - 12.3 fL [facility] RBC 3.25(L) 3.90 - 5.20 M/cumm [facility] MCV 90.5 81.3 - 96.4 fL [facility] MCH 29.2 27.1 - 33.3 pg [facility] MCHC 32.3 32.3 - 35.7 g/dL [facility] RDW CV 17.9(H) 11.1 - 14.9 % [facility] RDW SD 59.9(H) 35.7 - 48.1 fL [facility] NRBC abs 0.00 0.00 - 0.01 K/cumm [facility] Blood 01/05/2021 12:2 4 PM FISH HATCHERY SUPERVISOR 01/05/2021 12:41 PM FISH HATCHERY SUPERVISOR [facility] Naimamichelle Ivey DIRECTOR OUTPATIENT SERVICES LAB BLOOD ORDERABLES Briana narayan Result [facility] Department [place] [address] documented in this encounter Visit Diagnoses Not on filedocumented in this encounter Care Teams Shoe Stock Associate Relationship Specialty [place] [address] [address] [facility] [place] [address] PCP - General 07/04/19 [place] [address] [address] [facility] [place] [address] 11/16/18 Ernie Shaw MD [address] [place] [address] [address] [place] [address] Software Tester Obstetrics and Gynecology 06/10/20 documented as of this encounter
--- OUTSIDE RECORDS SUMMARY | 2024-02-24 20:02 | XMS_ITS | Encounter Summary ---
Author Organization [facility] Healthcare Address [address] [place] [address] Care Team Providers Care Surface Water Technician Name Role Phone Huseyin Dangelo MD Unavailable [phone] Brian Mon MD Primary Care Provider + Ernie Shaw MD Unavailable [phone] Reason for Visit * Reason Comments Problem elevated BOP & mirgr gela Encounter Details Date Type Department Care Team (Latest Contact Info) Description 12/23/2020 1:10 PM CDT - 12/23/2020 3:28 PM CDT Hospital Encounter [address] [address] Crystal Murray MD [address] [facility] [id number] [place], [place] [id number] Discharge Disposition: Discharge to home or self [...] Sign Reading Time Taken Comments Blood Pressure 98/48 12/23/2020 2:20 PM CDT Pulse 95 12/23/2020 2:55 PM CDT Temperature 36.7 ??C (98 ??F) 12/23/2020 1:15 PM CDT Respiratory Rate 18 12/23/2020 1:15 PM CDT Oxygen Saturation 98% 12/23/2020 2:55 PM CDT Inhaled Oxygen Concentration - - Weight 90.3 kg (199 lb 1.6 oz) 12/23/2020 1:15 P M CDT Height 160 cm (5' 3 ) 12/23/2020 1:15 PM CDT Body Mass Index 35.27 12/23/2020 1:15 PM CDT documented in this encounter Discharge Diagnoses Diagnosis related conditions, unspecified, third trimester - RELATED CONDITIONS, UNSPECIFIED, THIRD TRIMESTER Headache, unspecified - HEADACHE, UNSPECIFIED Elevated blood-pressure reading, without diagnosis of hypertension - ELEVATED BLOOD-PRESSURE READING, WITHOUT DIAGNOSIS OF HYPERTENSION Complete placenta previa nos or without hemorrhage, third trimester - COMPLETE PLACENTA PREVIA NOS OR WITHOUT HEMORRHAGE, THIRD TRIMESTER Diseases of the nervous system complicating , third trimester - DISEASES OF THE NERVOUS SYSTEM COMPLICATING , THIRD TRIMESTER Rheumatoid arthritis, unspecified (HCC) - RHEUMATOID ARTHRITIS, UNSPECIFIED related renal disease, third trimester - RELATED RENAL DISEASE, THIRD TRIMESTER 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) - GLOMERULAR DISEASE IN SYSTEMIC LUPUS ERYTHEMATOSUS Polyhydramnios, third trimester, not applicable or unspecified - POLYHYDRAMNIOS, THIRD TRIMESTER, NOT APPLICABLE OR UNSPECIFIED Other mental disorders complicating , third trimester - OTHER MENTAL DISORDERS COMPLICATING , THIRD TRIMESTER Anxiety disorder, unspecified - ANXIETY DISORDER, UNSPECIFIED Depression, unspecified - DEPRESSION, UNSPECIFIED Diseases of the respiratory system complicating , third trimester - DISEASES OF THE RESPIRATORY SYSTEM COMPLICATING , THIRD TRIMESTER Unspecified asthma, uncomplicated - UNSPECIFIED ASTHMA, UNCOMPLICATED 35 weeks gestation of - 35 WEEKS GESTATION OF termite helper (current) use of systemic steroids - SUBSTANCE ABUSE SPECIALIST (CURRENT) USE OF SYSTEMIC STEROIDS termite helper (current) use of aspirin - SUBSTANCE ABUSE SPECIALIST (CURRENT) USE OF ASPIRIN Other care home (current) drug therapy - OTHER CARE HOME (CURRENT) DRUG THERAPY Personal history of nicotine dependence - PERSONAL HISTORY OF NICOTINE DEPENDENCE Allergy status to penicillin - ALLERGY STATUS TO PENICILLIN Allergy status to other antibiotic agents - ALLERGY STATUS TO OTHER ANTIBIOTIC AGENTS Allergy status to other drugs, medicaments and biological substances - ALLERGY STATUS TO OTHER DRUGS, MEDICAMENTS AND BIOLOGICAL SUBSTANCES Acquired absence of other specified parts of digestive tract - ACQUIRED ABSENCE OF OTHER SPECIFIED PARTS OF DIGESTIVE TRACT Family history of malignant neoplasm of digestive organs - FAMILY HISTORY OF MALIGNANT NEOPLASM OF DIGESTIVE ORGANS Family history of stroke - FAMILY HISTORY OF STROKE Family history of stroke (cerebrovascular) Family history of diabetes mellitus - FAMILY HISTORY OF DIABETES MELLITUS documented in this encounter Medications at Time of Discharge al & mag hydroxide with simethicone-diphenhy dramine-lidocaine (MAGIC MOUTHWASH) suspension 1-1-1 Swish and swallow 10 mL every 4 (four) hours as needed (oral ulcers) 300 mL 12/09/2020 3 aspirin 81 mg enteric coated tablet Take 81 mg by mouth daily 1 cyclobenzaprine (FLEXERIL) 5 mg tablet Take 1 tablet (5 mg total) by mouth 2 (two) times a day as needed for muscle spasms 6 tablet 12/18/2020 1 ferrous gluconate (ferrous gluconate) 324 mg (37.5 mg of elemental iron) tabletIndications:Ir on deficiency Take 1 tablet (324 mg total) by mouth 3 (three) times a day 90 tablet 2 11/10/2020 1 hydrOXYchloroQUINE (PLAQUENIL) 200 mg tablet Take 2 tablets (400 mg total) by mouth daily 60 tablet 5 09/30/2020 2 omeprazole (PriLOSEC) 20 mg capsule Take 20 mg by mouth daily 06/21/2019 1 ondansetron ODT (ZOFRAN-ODT) 8 mg disintegrating tablet Dissolve 1 tablet on top of tongue then swallow with saliva every 8 hours as needed for nausea or vomiting 08/16/2020 1 polyethylene glycol (MIRALAX) 17 gram/dose powder Take 17 g by mouth 2 (two) times a day 08/24/2020 1 predniSONE (DELTASONE) 5 mg tablet TAKE 2 TABLETS(10 MG) BY MOUTH DAILY 60 tablet 10/23/2020 1 vit no.[id number] (Classic ) 28 mg iron- 800 mcg tablet Take 1 tablet by mouth daily 1 sertraline (ZOLOFT) 25 mg tablet 10/18/2020 2 valACYclovir (VALTREX) 500 mg tablet TAKE 1 TAB BY MOUTH 3 TIMES DAILY FOR 7 DAYS. 12/03/2019 1 documented as of this encounter Discharge Disposition Disposition Code Departure Means Destination Discharge to home or self care documented in this encounter H&P Notes * Alma Genao MD - 12/23/2020 1:57 PM CDT Obstetrics H&P Chief Complaint: SHELTON Estimated Date of Delivery: 01/27/21 Provider: RENETTA HPI: Carito Madison is a 30 y.o. female at 35w0d gestation, dated by L=1 Her is complicated by placenta previa, SLE with secondary adrenal insufficiency, anxiety,MAEVE and polyhydramnios Patient presents with c/o SHELTON. States it started yesterday morning and has not gone away. Located inthe back of head radiating to jaw and neck. Took tylenol athome with minimal relief. Denies changesin activity or trauma. Denies vision changes, RUQ pain, ctx's, LOF, and VB. Endorses good FM. She reports she talked to [facility] office today and was told to come here instead of her NST to r/o preE. 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 Patient [...] since quittin.9 ??? Smokeless tobacco: Never Used Vaping Use [...] MEDICATIONS : al & mag hydroxide with qihgmivsppd-silkhszjrvfnneo-ddzuvjjjk (MAGIC MOUTHWASH) suspension aspirin 81 mg enteric coated tablet cyclobenzaprine (FLEXERIL) 5 mg tablet ferrous gluconate (ferrous gluconate) 324 mg (37.5 mg of elemental iron) tablet hydrOXYchloroQUINE (PLAQUENIL) 200 mg tablet omeprazole (PriLOSEC) 20 mg capsule ondansetron ODT (ZOFRAN-ODT) 8 mg disintegrating tablet polyethylene glycol (MIRALAX) 17 gram/dose powder predniSONE (DELTASONE) 5 mg tablet vit no.[id number] (Classic ) 28 mg iron- 800 mcg tablet sertraline (ZOLOFT) 25 mg tablet valACYclovir (VALTREX) 500 mg tablet Review of Sys: Negative except per HPI Vitals: Temp: [36.7 ??C (98 ??F)] 36.7 ??C (98 ??F) Pulse: [103] 103 Resp: [18] 18 BP: (134)/(79) 134/79 Physical Exam: General: NAD, mood appropriate Cardiovascular: Regular rate and rhythm Pulmonary: Clear to ausculation bilaterally Abdomen: Gravid, non-tender Extremities: Warm and well perfused Speculum Exam: deferred Cervix: / / deferred Monitoring: Baseline: 145 bpm, Variability: Moderate, Accelerations: Present and Decelerations: None Uterine Activity: No contractions seen on toco Interpretation: Reactive Ultrasound: Not indicated Labs: Lab Results Component Value Date ABORH A Positive 11/29/2020 IDCOOMB Negative 11/29/2020 [id number] Nonreactive 12/06/2020 LABRPR Nonreactive 12/06/2020 Assessment and Plan Carito Madison is a 30 y.o. female at 35w0d who presented with SHELTON. #SHELTON - tension SHELTON x 2 days - Took tylenol at home with minimal relief - Offered fioricet & compazine, pt declined. - Pt reports taking her BP at home: 130/90 - no h/o hypertension - VSS, [facility]otensive in [facility] today - preE precautions reviewed, pt will continue to monitor BP at home. #FWB Reactive NST Plan discussed with Dr. Genao. PIH labs not sent - normotensive. Next appt 12/27. Margarita Phillips NP 12/23/20 [facility] Fellow Attestation I have discussed Carito Madison with the above provider on 12/23/2020. I have reviewed the treatment plan and recommendations. I agree with the findings and the plan of care as documented in the note with the following addendum: Briefly, this is a 30 y.o. at 35w0d with complicated by placenta previa and lupus. Patient presented with headache. Normotensive. Patient declined analgesics. NST reactive. Patient discharged home in stable condition. Alma Genao MD Maternal- Medicine Fellow documented in this encounter Nursing Notes * Christina Hubbard RN - 12/23/2020 3:26 PM CDT Pt was seen for c/o SHELTON and elevated BP. VSS and FHT's were difficult to trace but were reactive. The strip was reviewed by the [facility]. PO medication was offered but refused. The pt was encouraged to keepher scheduled OB visits and she verbalized an understanding @ this time. She is now being discharged to home in stable condition. documented in this encounter Plan of Treatment Not on file documented as of this encounter Visit Diagnoses Diagnosis Generalized anxiety disorder Marginal insertion of umbilical cord affecting management of mother in second trimester Placenta previa Polyhydramnios in third trimester, not applicable or unspecified fetus documented in this encounter Admitting Diagnoses Diagnosis Generalized anxiety disorder Marginal insertion of umbilical cord affecting management of mother in second trimester Placenta previa specified as without hemorrhage in second trimester Polyhydramnios in third trimester, not applicable or unspecified fetus Supervision of high-risk , unspecified trimester documented in this encounter Active and Recently Administered Medications Times are shown in CDT. Scheduled Medication Order 12/21/2020 12/22/2020 12/23/2020 dpijfsliws-zwjmhjcratahg-jlrgqju e (ESGIC) 50-325-40 mg per tablet 2 tablet 2 tablet, oral, Once, On Rachel 12/23/20 at 1445, For 1 dose 1445 (Not Given - Pr ovider: Christina Hubbard RN - Reason: Patient/family refused) documented in this encounter Orders Medications Ordered That Omer ht Not Have Been Administered Count Last Ordered Date First Ordered Date xtmuopnyir-iadhwdteivuxh-gew feine (ESGIC) 50-325-40 mg per tablet 2 tablet 1 12/23/2020 documented in this encounter Care Teams Surface Water Technician Relationship Specialty [place] [address] [place] [address] PCP - General 07/04/19 [place] [address] [address] [facility] [address] 11/16/18 Ernie Shaw MD [address] [place] [address] Proposal Coordinator Obstetrics and Gynecology 06/10/20 documented as of this encounter
--- OUTSIDE RECORDS SUMMARY | 2024-02-24 20:02 | XMS_ITS | Encounter Summary ---
Author Organization [facility] [employer] [facility] Address [address] [place] [address] Phone Care Team Providers Care Paintless Dent Repair Technician Name Role Phone Huseyin Dangelo MD Unavailable Brian Mon MD Primary Care Provider + Ernie Shaw MD Unavailable [phone] Encounter Details Date Type Department Care Team (Late st Contact Info) Description 01/06/2021 Telephone [facility] Maternal- Medicine [address] [facility] [address] [facility] [address] [place] [address] Ahn Marin, PRO Social History Tobacco Use Types Packs/Day [...] and Family Not on file 01/01/2021 Attends [employer] Not on file 01/01 Active Member [...] a nursing home (including now)? No 01/01/2021 Comments No Sex [...] encounter Miscellaneous Notes * Telephone Encounter - Anh Marin RN - 01/06/2021 12:45 PM COTTON TIER Pt. Calling, states she was in [facility] yesterday to have incision assessed. Pt. States no changes from yesterday but concerned. Pt. States she just wanted to make sure we were aware and wanted confirmation that this was normal. Discussed that since Dr. Arevalo assessed incision yesterday and pt. Is having no different sx. She should continue to allow healing and rest. Pt. Moved appt to 01/11 and understands that if she has concerns prior to that she should seek evaluation. ON TIER documented in this encounter Plan of Treatment Not on file documented as of this encounter Visit Diagnoses Not on filedocumented in this encounter Care Teams Paintless Dent Repair Technician Relationship Specialty [place] [address] [facility] [place] [address] PCP - General 07/04/19 [place] [address] [address] [facility] [place] [address] 11/16/18 Ernie Shaw MD [address] [place] [address] [address] [place] [address] Mechanical Striper Obstetrics and Gynecology 06/10/20 documented as of this encounter
--- OUTSIDE RECORDS SUMMARY | 2024-02-24 20:02 | XMS_ITS | Encounter Summary ---
Author Organization [facility] [employer] [facility] Address [address] [place] [address] Phone Care Team Providers Care Mannequin Mounter Name Role Phone Huseyin Dangelo MD Unavailable [phone] Brian Mon MD Primary Care Provider + Ernie Shaw MD Unavailable [phone] Encounter Details Date Type Department Care Team (Late st Contact Info) Description 01/07/2021 Telephone [facility] Maternal- Medicine [address] [facility] [address] [facility] 7[address] [place] [address] Fariba Chin RN Social History Tobacco Use Types Packs/Day [...] in a intermediate (including now)? No 01/01/2021 Comments No Sex [...] Telephone Encounter - Fariba Chin RN - 01/07/2021 10:57 AM CST I called Carito per the request of Dr. Arevalo and Dr. Sorto regarding her concerns about her delivery. She didn't answer and I left a detailed message letting her know the providers would prefer tospeak with her and her in person. Dr. Sorto will be at her appointment on 01/11/21 to discuss her concern and discuss questions. I left my direct phone number in case she calls back and would like to discuss this further. CAL INSURANCE CODING SPECIALIST documented in this encounter Plan of Treatment Not on file documented as of this encounter Visit Diagnoses Not on filedocumented in this encounter Care Teams Mannequin Mounter Relationship Specialty [place] [address] [facility] [place] [address] PCP - General 07/04/19 [place] [address] [address] [facility] [place] [address] 11/16/18 Ernie Shaw MD [address] [place] [address] [address] [place] [address] Benefits Administrator Obstetrics and Gynecology 06/10/20 documented as of this encounter
--- OUTSIDE RECORDS SUMMARY | 2024-02-24 20:02 | XMS_ITS | Encounter Summary ---
Author Organization [facility] Healthcare Address [address] [place] [address] Care Team Providers Care Auto Leasing Manager Name Role Phone Huseyin Dangelo MD Unavailable [phone] Brian Mon MD Primary Care Provider + Ernie Shaw MD Unavailable [phone] Reason for Visit * Reason Comments Scheduled Encounter Details Date Type Department Care Team (Late st Contact Info) Description 12/30/2020 9:25 AM CDT - 01/03/2021 5:07 PM CAR SHIFTER Hospital Encounter [address] [phone] Kristin Sorto MD [address] [facility] [address] [place] [address] Crystal Murray MD [address] [facility] [id number] [place] [address] Discharge Disposition: Discharge to home or self [...] and Family Not on file 01/01/2021 Attends [employer] Services Not on file 01/01 Active [...] in a long-term (including now)? No 01/01/2021 Comments No Sex [...] Sign Reading Time Taken Comments Blood Pressure 120/73 01/03/2021 7:30 AM CAR SHIFTER Pulse 99 01/03/2021 7:30 AM CAR SHIFTER Temperature 36.9 ??C (98.4 ??F) 01/03/2021 7:30 AM CS T Respiratory Rate 18 01/03/2021 7:30 AM CAR SHIFTER Oxygen Saturation 96% 01/03/2021 7:30 AM CAR SHIFTER Inhaled Oxygen Concentration - - Weight 87.2 kg (192 lb 3.2 oz) 12/30/2020 9:41 A M CDT Height 160 cm (5' 2.99 ) 12/30/2020 9:41 AM CDT Body Mass Index 34.05 12/30/2020 9:41 AM CDT documented in this encounter Discharge Diagnoses Diagnosis Complete placenta previa nos or without hemorrhage, third trimester - COMPLETE PLACENTA PREVIA NOS OR WITHOUT HEMORRHAGE, THIRD TRIMESTER Single live - SINGLE LIVE 36 weeks gestation of - 36 WEEKS GESTATION OF Drug-induced adrenocortical insufficiency (HCC) - DRUG-INDUCED ADRENOCORTICAL INSUFFICIENCY Other immediate hemorrhage - OTHER IMMEDIATE HEMORRHAGE Personal history of nicotine dependence - PERSONAL HISTORY OF NICOTINE DEPENDENCE Streptococcus B carrier state complicating childbirth - STREPTOCOCCUS B CARRIER STATE COMPLICATING CHILDBIRTH Adverse effect of glucocorticoids and synthetic analogues, initial encounter - ADVERSE EFFECT OF GLUCOCORTICOIDS AND SYNTHETIC ANALOGUES, INITIAL ENCOUNTER Generalized anxiety disorder - GENERALIZED ANXIETY DISORDER Iron deficiency anemia, unspecified - IRON DEFICIENCY ANEMIA, UNSPECIFIED Systemic lupus erythematosus, unspecified (HCC) - SYSTEMIC LUPUS ERYTHEMATOSUS, UNSPECIFIED Rheumatoid arthritis, unspecified (HCC) - RHEUMATOID ARTHRITIS, UNSPECIFIED Maternal care for transverse and oblique lie, not applicable or unspecified - MATERNAL CARE FOR TRANSVERSE AND OBLIQUE LIE, NOT APPLICABLE OR UNSPECIFIED Maternal care for low transverse scar from previous delivery - MATERNAL CARE FOR LOW TRANSVERSE SCAR FROM PREVIOUS DELIVERY Other malformation of placenta, third trimester - OTHER MALFORMATION OF PLACENTA, THIRD TRIMESTER Anemia complicating childbirth - ANEMIA COMPLICATING CHILDBIRTH Endocrine, nutritional and metabolic diseases complicating childbirth - ENDOCRINE, NUTRITIONAL AND METABOLIC DISEASES COMPLICATING CHILDBIRTH Other mental disorders complicating childbirth - OTHER MENTAL DISORDERS COMPLICATING CHILDBIRTH Exposure to other specified factors, initial encounter - EXPOSURE TO OTHER SPECIFIED FACTORS, INITIAL ENCOUNTER Activity, unspecified - ACTIVITY, UNSPECIFIED Unspecified place or not applicable - UNSPECIFIED PLACE OR NOT APPLICABLE documented in this encounter Discharge Summaries * Juana Ivory MD - 01/03/2021 5:07 PM CST Inpatient Discharge Summary BRIEF OVERVIEW Admitting Provider: Kristin Sorto MD Discharge Provider: Kristin Sorto MD Primary Care Physician at Discharge: Brian Mon MD [phone] Admission Date: 12/30/2020 Discharge Date: 01/03/2021 Admission Location: [facility] Problems/Diagnoses: Active Problems: Polyhydramnios in third [...] For: pain al & mag hydroxide with ppmhspfwrlm-tppglnhtngtxypi-etiowvviu (MAGIC MOUTHWASH) suspension 1-1-1 Swish and swallow 10 mL every 4 (four) hours as needed (oral ulcers) Classic 28 mg iron- 800 mcg tablet Take 1 tablet by mouth daily Generic drug: vit no.797-tijr-yzach cyclobenzaprine 5 mg tablet Take 1 tablet [...] Prophylaxis Commonly known as: PROTONIX PNV with xtjswiw-yrzz-SW 27 mg iron- 1 mg tablet Take [...] Provider Department Center 01/11/2021 2:45 PM MFM TAR PROCESSING TECHNICIAN MFM [facility] 7 OB 01/13/2021 1:30 PM [facility] SEN [facility] 5C [facility] Rheum 01/17/2021 1:15 PM MFM TAR PROCESSING TECHNICIAN MFM [facility] 7 OB 02/14/2021 1:00 PM MFM TAR PROCESSING TECHNICIAN MFM [facility] 7 OB Contact Information for Follow-ups Brian Mon MD Specialty: Internal Medicine Relationship: PCP - General [address] [place] [address] Next Steps: Follow up Cosigned by Avelino Triplett MD at 01/10/2021 11:04 AM CAR SHIFTER SHIFTER SHIFTER documented in this encounter Discharge Instructions * Discharge Instructions* Maya Murillo, TAR PROCESSING TECHNICIAN - 01/03/2021 4:39 PM CAR SHIFTER .. Discharge Instructions - Section In order [...] first call our OB communication center at [phone]. * If you have SEVERE illness including [...] clear the ducts of sperm before the follow-up sperm count. A sperm count requires that the man give a semen sample. A man who continues to have sperm in the ejaculate requires a second sperm count, usually performed two months later. If the follow-up check shows sperm that do not move, there is a small chance that a partner may become pre gnant. Another method of contraception should be continued [...] hours). Do NOT supplement unless instructed by Syrup Machine Laborer. Call your Syrup Machine Laborer if your baby has poor eating habits (examples: feedings decrease, no feedings in 6 hours, or spits up more than ?? of their [...] call our centralized OB communication center at [phone]. Do not come to the hospital or clinic until you speak with a provider. Contact Information for your primary OB: * [facility]) - MMATERNAL MEDICINE - [id number] [place], [place] [address]Abpf to schedule an appointment in 2 and 6 weeks. Future Appointments Date Time Provider Department Center 01/13/2021 1:30 PM [facility] 5C [facility] Rheum 01/17/2021 1:15 PM MFM TAR PROCESSING TECHNICIAN [facility] 7 OB 02/14/2021 1:00 PM MFM TAR PROCESSING TECHNICIAN [facility] OB Discharge Medications: Take the following medications. [...] daily Commonly known as: PROTONIX PNV with hhsgiot-boos-BN 27 mg iron- 1 mg tablet Take [...] these medications al & mag hydroxide with eajkevwfuau-cvtlvncilmqaubc-chetndqqc (MAGIC MOUTHWASH) suspension 1-1-1 Swish and swallow 10 mL every 4 (four) hours as needed (oral ulcers) Classic 28 mg iron- 800 mcg tablet Generic drug: vit no.715-ibye-ysovh ferrous gluconate 324 mg (37.5 mg of [...] 500 mg tablet Commonly known as: VALTREX SHIFTER documented in this encounter Medications at Time of Discharge ibuprofen (ADVIL,MOTRIN) 600 mg tabletIndications :Cramps Take 1 tablet (600 mg total) by mouth every 6 (six) hours 60 tablet 01/03/2021 12/08/202 1 acetaminophen 500 mg capsuleIndication s:Pain Take [...] 30 tablet 11 01/03/2021 3 PNV with htcormf-ijaj-UQ 27 mg iron- 1 mg tabletIndications :Vitamin Deficiency Prevention Take 1 tablet by mouth daily 30 tablet 1 01/04/2021 3 predniSONE (DELTASONE) 2.5 mg tablet Take 3 tablets (7.5 mg) by mouth daily 30 tablet 2 01/04/2021 2 vit no.161-txoj-xqmlh (Classic ) 28 mg iron- 800 mcg [...] 30 tablet 11 01/03/2021 1 PNV with bhqcwcn-xedd-TN 27 mg iron- 1 mg tabletIndications: Vitamin [...] generalized (CMS/HCC) (HCC) Microcytic anemia Joint pain Anti-NONDESTRUCTIVE TESTER antibodies present Adrenal insufficiency (CMS/HCC) (HCC) Bilateral [...] ABORH A Positive 12/30/2020 IDCOOMB Negative 12/30/2020 [id number] Nonreactive 12/06/2020 LABRPR Nonreactive 12/30/2020 Assessment and [...] vax'ed DC today Zane Hayden MD PGY-4 (BASKET HAND WEAVER) [phone] Cosigned by Aissatou Espinoza MD at 01/03/2021 10:14 AM CAR SHIFTER SHIFTER SHIFTER SHIFTER SHIFTER Associated attestation - Aissatou Espinoza MD - 01/03/2021 10:14 AM CAR SHIFTER I have seen and examined the patient [...] Discussed the following concerns with patient: ?? [place] off and disoriented this AM, more tired [...] transition instead to 7.5mg daily. Will update manager investment. ?? Posterior headache/pressure with laying back. Declined compazine or regalan for headache. Calledanesthesia, will evaluate patient. ?? Concern for bleeding. Orthostats within normal limits with normal vital signs with soft, reassuring abdomen. No concern for acute blood loss. Provided reassurance about vaginal bleeding. Lexi Gates MD SHIFTER * Juana Ivory MD - 01/02/2021 5:19 [...] ??? Microcytic anemia ??? Joint pain ??? Anti-NONDESTRUCTIVE TESTER antibodies present ??? Adrenal insufficiency (CMS/HCC) (HCC) [...] ABORH A Positive 12/30/2020 IDCOOMB Negative 12/30/2020 [id number] Nonreactive 12/06/2020 LABRPR Nonreactive 12/30/2020 Assessment and [...] Sherri Garcias MD 01/02/2021 Cosigned by Latha Serrano MD at 01/03/2021 9:43 PM CAR SHIFTER SHIFTER SHIFTER SHIFTER Associated attestation - Latha Serrano MD - 01/03/2021 9:43 PM CAR SHIFTER I saw and examined the patient on 01/02/21. I agree with the findings and plan of care as documentedin this note. All questions answered. Latha Serrano MD MS Maternal- Medicine * Saratammie Elise, OCEANOLOGIST - 01/01/2021 12:12 PM CDT Reason for Admission MOB (Carito Bowen 1990) was admitted on 12/30/2020 for SUPERVISION OF HIGH RISK ,UNSPECIFIED, UNSPECIFIED TRIMESTER. Social Work referral for hx of anxiety; nicu admission. Medical History OB-POLICE STENOGRAPHER care has been established with MFM. Pediatric follow-up to be scheduled. Medical insurance coverage is through [facility] [employer]. Information Baby girl was born on 12/30/2020 at EGA 36 weeks and has been named Mayra. Delivery was , Low Transverse . Rushford weighed 7lbs 4oz at delivery. Rushford will be breast fed. This is mother's 1st child. Mayra was admitted to [facility] NICU at delivery. Social History Current address is [address] [place] [phone], where she lives with her spouse. Currently [phone] (home) is the best phone number for future contact. Father of the baby, Britta, can be reached at [phone]. FOB has been present and supportive at the hospital. Mood and Anxiety Carito Bowen describes her mood during as anxious with increasing panic attacks during . Currently, mother of the baby feels very calm about returning home with the . ROSAURA and meet with Carito Bowen at bedside and discuss/normalize an increase in stress surrounding prior trauma and in NICU. Currently prescribed 50mg of Zoloft, plan to increase to 75mg (split 25mg AM/50mg HS). ROSAURA provides list of psyhiatrist and therapist in the [facility] that accept patient insurance. Social Work and [...] additional needs should they arise. VESNA Smith, OCEANOLOGIST Women and Infants Metalsmith Apprentice [facility] * Juana Ivory MD - 01/01/2021 6:44 [...] ??? Microcytic anemia ??? Joint pain ??? Anti-NONDESTRUCTIVE TESTER antibodies present ??? Adrenal insufficiency (CMS/HCC) (HCC) [...] ABORH A Positive 12/30/2020 IDCOOMB Negative 12/30/2020 [id number] Nonreactive 12/06/2020 LABRPR Nonreactive 12/30/2020 Assessment and [...] ??? Microcytic anemia ??? Joint pain ??? Anti-NONDESTRUCTIVE TESTER antibodies present ??? Adrenal insufficiency (CMS/HCC) (HCC) [...] ABORH A Positive 12/30/2020 IDCOOMB Negative 12/30/2020 [id number] Nonreactive 12/06/2020 LABRPR Nonreactive 12/30/2020 Assessment and [...] 3 Current 2 2019 16w0d 1 2017 POLICE STENOGRAPHER History: No LMP recorded (lmp unknown). Patient [...] MEDICATIONS : al & mag hydroxide with efmpmuqeugw-vpjzsepslunhrks-vulnfzeoj (MAGIC MOUTHWASH) suspension 1-1-1 aspirin 81 mg enteric coated tablet cyclobenzaprine (FLEXERIL) 5 mg tablet ferrous gluconate (ferrous gluconate) 324 mg (37.5 mg of elemental iron) tablet hydrOXYchloroQUINE (PLAQUENIL) 200 mg tablet omeprazole (PriLOSEC) 20 mg capsule predniSONE (DELTASONE) 5 mg tablet vit no.424-kflx-srpfl (Classic ) 28 mg iron- 800 mcg [...] ABORH A Positive 12/30/2020 IDCOOMB Negative 12/30/2020 [id number] Nonreactive 12/06/2020 LABRPR Nonreactive 12/06/2020 Rh +/Ab [...] with Dr. Sorto. Juana Ivory MD 12/30/2020 [facility] Fellow Attestation I have seen and discussed [...] safe for discharge home at this time. SHIFTER * Roro Waldrop RN - 01/03/2021 1:33 PM CST Pt complaining of worsening headache not relieved with oxycodone, ibuprofen, zyrtec, or tylenol. Ptstates pain is radiating down spine and her feet are tingly. MD Dianelys and MD Fermin with anesthesia is aware. Will continue to monitor pt for new or worsening symptoms. SHIFTER documented in this encounter Miscellaneous Notes * [...] vasectomy- declines bridge s/p counseling # MOF: SHIFTER SHIFTER SHIFTER SHIFTER * Plan of Care - Roro Waldrop RN - 01/03/2021 9:11 [...] visit baby in NICU Roro Waldrop RN SHIFTER * Plan of Care - Leti Garcia RN - 01/03/2021 2:38 [...] Encouraged to go visit baby in NICU. SHIFTER * Note - Saadia Adams RN - 01/02/2021 1:56 PM CST This note was copied from a baby's chart. Spoke with mother via phone. Reviewed Hands on pumping as well as lower elwha pump use. Guide reviewed as well as voucher program. Mother aware to reach out to for any follow up concerns. Mother has my contact information. Support and encouragement given. SHIFTER * Plan of Care - Radha Bright RN - 01/02/2021 9:59 AM CST Goals: Clinical Goals for the Shift: vitals WNL and pain control Summary: SHIFTER * Plan of Care - Leti Garcia [...] Ivory MD - 12/30/2020 3:21 PM CDT [facility] Section Delivery Note Patient's Name: Carito Bowen : 1990 Attending Physician: Kristin Sorto MD Surgical Team: Surgeon(s) and Role: * Kristin Sorto MD - Primary * Zane Hayden MD - Resident - Assisting * Juana Ivory MD - Resident - Assisting * Neisha Arevalo MD - Fellow Clinic: [facility] Primary Diagnosis: Intrauterine at 36w0d, delivered Placenta [...] ??? Microcytic anemia ??? Joint pain ??? Anti-NONDESTRUCTIVE TESTER antibodies present ??? Adrenal insufficiency (CMS/HCC) (HCC) [...] prior to delivery: 0h 01m Antibiotics: Clindamycin/Gentamicin Infant Delivery Date/Time: 12/30/2020 at 12:15 PM Placenta [...] * RBC%, quantitative (01/01/2021 5:15 PM CDT) Hgb F, flow cytometry <0.05 0.05 - 0.10 % [facility] MORAN Comment: Interpretive data: ? ? RhIg administration [...] and its performance characteristics determined by the [facility] Flow Cytometry laboratory. It has not [...] BLOOD BANK TEST ORDER ANAHI Final Result [facility] Department [place] [address] * (ABNORMAL) CBC without differential (12/31/2020 5:14 AM CDT) WBC 14.9(H) 3.8 - 9.9 K/cumm [facility] Hgb 9.1(L) 11.9 - 15.5 g/dL [facility] Comment:Post , called to Cassandra Larsen RN. Hct 28.2(L) 35.6 - 45.5 % [facility] Plt 186 150 - 400 K/cumm [facility] MPV 10.1 9.1 - 12.3 fL [facility] RBC 3.18(L) 3.90 - 5.20 M/cumm [facility] MCV 88.7 81.3 - 96.4 fL [facility] MCH 28.6 27.1 - 33.3 pg [facility] MCHC 32.3 32.3 - 35.7 g/dL [facility] RDW CV 18.3(H) 11.1 - 14.9 % [facility] RDW SD 60.0(H) 35.7 - 48.1 fL [facility] NRBC abs 0.00 0.00 - 0.01 K/cumm [facility] Blood 12/31/2020 5:14 AM CDT 12/31/2020 5:43 AM CDT us Kristin Sorto MD LAB BLOOD ORDERABLES Briana helene Result [facility] Department [place] [address] * Surgical pathology (12/30/2020 12:16 PM CDT) Placenta 12/30/2020 12:1 6 PM CDT 12/31/2020 8:10 AM CDT Narrative 01/05/2021 3:16 PM CAR SHIFTER EPIC results best viewed via link to PDF [facility] [place] [address] Note to Patients: This report may contain [...] REPORT FINAL Patient Name: ?? CARITO BOWEN Ganesh Gender: ??F : ??1990 (Age: 30) Address: ??[address] [place] [address] Hospital #: ??[id number] Taken:12/30/2020 Received:12/31/2020 Reported: 01/05/2021 Patient Type: [facility] Inpatient ?? Service: Obstetrics BJ Location: [facility] ??6800 Physician(s): ??Zane Hayden M.D. Diagnosis: Placenta, delivery ? - 507.0 gram, appropriate for gestational age, delivery johnson placenta - Trivascular umbilical cord with marginal insertion and history of placenta previa - membranes with focal acute deciduitis without evidence of acute chorioamnionitis - Basal plate and subchorionic fibrin deposition - Patchy areas of accelerated villous maturation [facility]/01/05/2021 10:24 By this signature, I attest that [...] basal plate and adjacent area being dark altamirano in color throughout the placenta. Intervening parenchyma is the normal spongy consistency and red color. There are no hematomas or other lesions appreciated on sectioning. Labeled A1 - umbilical cord; A2 - membranes; A3- A4- normal placenta. ??Jar 3. [facility]/01/03/2021 14:57 Gross Resident:Riccardo Perdue M.D. By this signature, I attest that the above diagnosis is based upon my personal examination of the slides(and/or other material). Addenda/Procedures The performance characteristics of some immunohistochemical stains, fluorescence in-situ hybridization tests and immunophenotyping by flow cytometry cited in this report (if any) were determined by the Surgical Pathology and Flow Cytometry Departments at [facility] as part of an ongoing construction quality control manager program and in compliance with federally mandated [...] Surgical Pathology and Flow Cytometry Departments of [facility]. ??It has not been cleared or approved by the U. S. Food and Drug Administration. IMAGES AND SCANNED DOCUMENTS, IF INCLUDED, ONLY VIEWABLE IN PDF VERSION OF REPORT us Zane Hayden MD LAB PATHOLOGY ORDERABLES Final Result * Prepare RBC: 2 Units (12/30/2020 10:56 AM CDT) Product code [id number] [facility] Unit Number [id number] 2-B [facility] Product Blood Type APOS [facility] Dispense Status RETURNED [facility]ITA [facility] Product code [id number] [facility] Unit Number [id number] 8-W [facility] Product Blood Type APOS [facility] Dispense Status RETURNED [facility] Blood 12/30/2020 10:5 6 AM CDT 12/30/2020 10:56 AM CDT Narrative [facility] - 12/31/2020 8:51 AM CDT Are special requirements needed? (all products are leukoreduced)->No Donor Source->Allogeneic Has the patient been transfused in the past 3 months?->No Has the patient been in the past 3 months?->No Date required:-[id number] LRRBC # of [id number] Reasons:-Hemorrhagic shock/Life-threatening bleeding} us Kristin Sorto MD BLOOD BANK PRODUCT ORDERA BLES Final Result Performing Organization Address City/[facility]/ZIP Co de Phone Number [facility] Department [place] [address] * RPR (12/30/2020 10:08 AM CDT) RPR Nonreactive Nonreactive [facility] Blood 12/30/2020 10:0 8 AM CDT 12/30/2020 10:25 AM CDT us Kristin Sorto MD LAB MICROBIOLOGY - GENERA L ORDERABLES Final Result Performing Organization Address [facility]/ZIP Co de Phone Number [facility] [place] [employer] [place] [address] * Type and screen (12/30/2020 10:08 AM CDT) Jose Antonio, indirect Negative [facility] ABO Rh A Positive [facility] Blood 12/30/2020 10:0 8 AM CDT 12/30/2020 10:19 AM CDT Narrative [facility] SILVEIRA - 12/30/2020 11:08 AM CDT Has the patient had Daratumumab or Isatuximab in the past 6 months?->Unknown us Kristin Sorto MD LAB BLOOD BANK TEST ORDER ANAHI Final Result [facility] [place] [address] documented in this encounter Visit Diagnoses Diagnosis Generalized anxiety disorder Marginal insertion of umbilical cord affecting management of mother in second trimester Placenta previa Polyhydramnios in third trimester, not applicable or unspecified fetus Supervision of high-risk , unspecified trimester delivery delivery, without mention of indication, delivered, with or without mention of antepartum condition documented in this encounter Admitting Diagnoses Diagnosis [...] covering., Indications: PainIndications:Pain Given 01/03/2021 4:21 PM CAR SHIFTER 1,000 mg Given 01/03/2021 9:21 AM CAR SHIFTER 1,000 mg Given 01/03/2021 3:32 AM CAR SHIFTER 1,000 mg acetaminophen (TYLENOL) tablet 1,000 mg 1,000 mg, oral, Every 6 hours scheduled, First dose on Rachel 12/30/20 at 1500, For 24 hours, When able to tolerate PO. Max 4 doses. Anesthesia orders for the first 24 hours ., Indications: PainIndications:Pain Given 12/31/2020 11:47 AM CDT 1,000 mg Given 12/31/2020 3:27 AM CDT 1,000 mg Given 12/30/2020 8:01 PM CDT 1,000 mg cetirizine (ZyrTEC) tablet 10 mg 10 mg, oral, Daily, First dose on 01/03/21 at 1045 Given 01/03/2021 10:38 AM CAR SHIFTER 10 mg cyclobenzaprine (FLEXERIL) tablet 5 mg 5 mg, oral, 3 times daily PRN, muscle spasms, Starting on 01/01/21 at 1943 Given 01/02/2021 6:29 AM CAR SHIFTER 5 mg Given 01/01/2021 8:33 PM CDT 5 mg diphenhydrAMINE (BENADRYL) tab/cap 25 mg 25 mg, oral, Once, On Rachel 12/30/20 at 1530, For 1 dose Given 12/30/2020 3:09 PM CDT 25 mg diphenhydrAMINE (BENADRYL) tab/cap 25 mg 25 mg, oral, Nightly PRN, sleep, Starting on Sun12/31/20 at 0023 Given 01/01/2021 7:31 PM CDT 25 mg Given 12/31/2020 12:39 AM CDT 25 mg docusate sodium (COLACE) capsule 100 mg 100 mg, oral, 2 times daily, First dose on Rachel 12/30/20 at 1415, Hold if diarrhea., Indications: constipation, Stool SoftenerIndications:constipation,Stool Softener Given 01/03/2021 8:05 AM CAR SHIFTER 100 mg Given 01/02/2021 9:38 PM CAR SHIFTER 100 mg Given 01/02/2021 2:40 PM CAR SHIFTER 100 mg enoxaparin (LOVENOX) syringe 40 mg 40 mg, subcutaneous, Daily (for enoxaparin), First dose on Sun12/31/20 at 2100, Indications: Deep Vein Thrombosis PreventionIndications:Deep Vein Thrombosis Prevention hydrocortisone (Solu-CORTEF) preservative free injection 100 mg 100 mg, intravenous, Once, On Rachel 12/30/20 at 1145, For 1 dose, For adults rapid IV push administer over 30 seconds Given 12/30/2020 11:27 AM CDT 100 mg hydrocortisone (Solu-CORTEF) preservative free injection 50 mg 50 mg, intravenous, Every 8 hours scheduled, First dose on Rachel 12/30/20 at 1900, For 2 doses, For adults rapid IV push administer over 30 seconds Given 12/31/2020 5:03 AM CDT 50 mg Given 12/30/2020 8:01 PM CDT 50 mg hydrOXYchloroQUINE (PLAQUENIL) tablet 200 mg 200 mg, oral, Daily, First dose on Sun12/31/20 at 0900, Do not crush, break, or open. Administer with food to decrease GI adverse effects if tolerating a diet. Oral liquid is preferred for per tube administration. tered if oral liquid is unavailable. Given 12/31/2020 9:01 PM CDT 200 mg hydrOXYchloroQUINE (PLAQUENIL) tablet 200 mg 200 mg, oral, Daily, First dose (after last modification) on 01/02/21 at 0900, Do not crush, break, or open. Administer with food to decrease GI adverse effects if tolerating a diet. Oral liquid is preferred for per tube administration. tered if oral liquid is unavailable. Given 01/02/2021 7:32 PM CAR SHIFTER 200 mg hydrOXYchloroQUINE (PLAQUENIL) tablet 400 mg 400 mg, oral, Daily, First dose (after last modification) on 01/01/21 at 0900, Do not crush, break, or open. Administer with food to decrease GI adverse effects if tolerating a diet. Oral liquid is preferred for per tube administration. tered if oral liquid is unavailable. Given 01/01/2021 6:37 PM CDT 200 mg hydrOXYzine (ATARAX) tablet 25 mg 25 mg, oral, Every 4 hours PRN, anxiety, Starting on Sun12/31/20 at 1435 ibuprofen (ADVIL,MOTRIN) tablet 600 mg 600 mg, oral, Every 6 hours, First dose on Sun12/31/20 at 1515, Start in 24 hours after Anesthesia no longer covering., Indications: CrampsIndications:Cramps Given 01/03/2021 12:53 PM CAR SHIFTER 600 mg Given 01/03/2021 6:49 AM CAR SHIFTER 600 mg Given 01/02/2021 11:35 PM CAR SHIFTER 600 mg ketorolac (TORADOL) injection 30 mg 30 mg, intravenous, Every 6 hours, First dose on Rachel 12/30/20 at 1900, For 24 hours, Max 4 doses. Anesthesia orders for the first 24 hours ., Indications: PainIndications:Pain Given 12/31/2020 10:21 AM CDT 30 mg Given 12/31/2020 3:26 AM CDT 30 mg Given 12/30/2020 8:01 PM CDT 30 mg lidocaine (LIDODERM) 5 % patch 2 patch 2 patch, transdermal, Administer over 12 Hours, Daily, First dose on Sun12/31/20 at 1300, Do not cover the holes on the top side of the patch., Apply to affected area: abdomen Medication Applied 01/02/2021 7:31 PM CAR SHIFTER 2 patches Other (Comment) Medication Applied 01/01/2021 [...] covering., Indications: PainIndications:Pain Given 01/03/2021 4:49 PM CAR SHIFTER 5 mg Given 01/03/2021 12:20 PM CAR SHIFTER 5 mg Given 01/03/2021 6:49 AM CAR SHIFTER 5 mg oxyCODONE (ROXICODONE) tablet 5 mg 5 mg, oral, Every 4 hours PRN, 1st line for pain, Starting on Rachel 12/30/20 at 1414, For 24 hours, When able to tolerate PO. Anesthesia orders for the first 24 hours ., Indications: PainIndications:Pain Given 12/31/2020 10:20 AM CDT 5 mg Given 12/31/2020 5:18 AM CDT 5 mg Given 12/30/2020 10:44 PM CDT [address] (PROTONIX) extended release tablet 40 mg 40 mg, oral, Daily, First dose on 01/03/21 at 0830, Do not crush, chew, cut, dissolve, open or otherwise manipulate tablet/capsule., Indications: Stress Ulcer ProphylaxisIndications:Stress Ulcer Prophylaxis PNV with [id number] tablet 1 tablet 1 tablet, oral, Daily, First dose on Rachel 12/30/20 at 1415, Begin when normal bowel activity resumes., Indications: Vitamin Deficiency PreventionIndications:Vitamin Deficiency Prevention Given 01/03/2021 7:31 AM CAR SHIFTER 1 tablet Given 01/02/2021 3:34 PM CAR SHIFTER 1 tablet Given 12/31/2020 10:20 AM CDT 1 tablet polyethylene glycol (MIRALAX) packet 17 g 17 g, oral, 3 times daily PRN, constipation, Starting on 12/31/20 at 0649, Hold if diarrhea., Indications: constipation, On hold since 01/01/2021 at 0716 until manually unheldIndications:constipation Given 12/31/2020 8:23 PM CDT 17 g Given 12/31/2020 10:21 AM CDT 17 g predniSONE (DELTASONE) tablet 10 mg 10 mg, oral, Once, On 01/01/21 at 0745, For 1 dose Given 01/01/2021 7:47 AM CDT 10 mg predniSONE (DELTASONE) tablet 10 mg 10 mg, oral, Once, On 01/02/21 at 0900, For 1 dose Given 01/02/2021 7:45 AM CAR SHIFTER 10 mg predniSONE (DELTASONE) tablet 5 mg 5 mg, oral, Once, On 01/01/21 at 1500, For 1 dose Given 01/01/2021 4:24 PM CDT 5 mg predniSONE (DELTASONE) tablet 5 mg 5 mg, oral, Once, On 01/02/21 at 1500, For 1 dose Given 01/02/2021 2:40 PM CAR SHIFTER 5 mg predniSONE (DELTASONE) tablet 7.5 mg 7.5 mg, oral, Daily, First dose (after last modification) on 01/03/21 at 0900 Given 01/03/2021 7:31 AM CAR SHIFTER 7.5 mg ramelteon (ROZEREM) tablet 8 mg 8 mg, oral, Nightly, First dose on Sun12/31/20 at 2100, Indications: Sleep-Onset InsomniaIndications:Sleep-Onset Insomnia senna (SENOKOT) tablet 1 tablet 1 tablet, oral, 2 times daily, First dose on Rachel 12/30/20 at 1415, Hold if diarrhea., Indications: constipationIndications:constipation Given 12/31/2020 8:23 PM CDT 1 table t Given 12/31/2020 10:19 AM CDT 1 tablet Given 12/30/2020 8:01 PM CDT 1 tablet sertraline (ZOLOFT) tablet 50 mg 50 mg, oral, Daily, First dose on Rachel 12/30/20 at 1700 Given 01/02/2021 7:33 PM CAR SHIFTER 50 mg Given 01/01/2021 6:37 PM CDT 50 mg Given 12/31/2020 11:54 AM CDT 50 mg simethicone (MYLICON) chewable tablet 80 mg 80 mg, oral, 4 times daily PRN (after meals, bedtime), flatulence, Starting on Rachel 12/30/20 at 1340, Indications: FlatulenceIndications:Flatulence Given 01/02/2021 7:45 AM CAR SHIFTER 80 mg Given 01/01/2021 10:19 AM CDT 80 mg Given 12/31/2020 8:22 PM CDT 80 mg valACYclovir (VALTREX) tablet 500 mg 500 mg, oral, Daily, First dose on Sun01/03/21 at 1500, Indications: Chronic SuppressionIndications:Chronic Suppression Given 01/03/2021 2:24 PM CAR SHIFTER 5 00 mg documented in this encounter Discontinued Medications [...] may contain times in both CDT and CAR SHIFTER. Scheduled Medication Order 01/01/2021 01/02/2021 01/03/2021 acetaminophen (TYLENOL) tablet 1,000 mg 1,000 mg, oral, Every 6 hours, First dose on Sun12/31/20 at 1515, Start in 24 hours after Anesthesia no longer covering., Indications: Pain 0019 (Given - Provider: Leti Garcia RN - Comment: dropped 1 tab)0029 (Given - Provider: Leti Garcia RN - Comment: 500 mgh given at this time, dropped 500mg a few minutes ago)0747 (Given - Provider: Leti Garcia RN)1354 (Given - Provider: Radha Bright RN)1515 (Hold - Provider: Radha Bright RN - Reason: Order parameters not met)2032 (Given - Provider: Leti Garcia RN) 0215 (Given - Provider: Leti Garcia [...] Lexi Gates MD)1440 (Given - Provider: Radha Bright, RN - Comment: pt request)2137 (Given - Provider: Leti Garcia RN) 08 (Given - Provider: Roro Waldrop RN) enoxaparin [...] Daily, First dose (after last modification) on 01/02/21 at 0900, Do not crush, break, or [...] Daily, First dose (after last modification) on 01/01/21 at 0900, Do not crush, break, or open. Administer with food to decrease GI adverse effects if tolerating a diet. Oral liquid is preferred for per tube administration. tered if oral liquid is unavailable. 1836 (Given - Provider: Radha Bright, RN - Comment: Pt request for this timeframe, pt only takes 200mg) ibuprofen (ADVIL,MOTRIN) tablet 600 mg 600 mg, oral, Every 6 hours, First dose on Sun12/31/20 at 1515, Start in 24 hours after Anesthesia no longer covering., Indications: Cramps 0510 (Given - Provider: Leti Garcia RN)1221 (Given - Provider: Radha Bright RN)1832 (Given - Provider: Radha Bright RN) 0031 (Given - Provider: Leti Garcia RN)0629 (Given - Provider: Leti Garcia RN)1118 (Given - Provider: Radha Bright RN)1745 (Given - Provider: Radha Bright RN)2335 (Given - Provider: Leti Garcia RN) 0649 (Given - Provider: Leti Garcia RN)1253 (Given - Provider: Roro Waldrop, PRO) lidocaine (LIDODERM) 5 % patch 2 patch [...] Prophylaxis 0914 (Not Given - Provider: Roro Waldrop RN - Reason: Patient/family refused - Comment: Pt prefers to take at night) PNV with [id number] tablet 1 tablet 1 tablet, oral, Daily, [...] 1 dose 1624 (Given - Provider: Radha Bright RN) predniSONE (DELTASONE) tablet 5 mg (COMPLETED) 5 mg, oral, Once, On 01/02/21 at 1500, For 1 dose 1440 (Given - Provider: Radha Bright RN) predniSONE (DELTASONE) tablet 7.5 mg 7.5 mg, oral, Daily, First dose (after last modification) on 01/03/21 at 0900 0731 (Given - Provider: Leti [...] 50 mg, oral, Daily, First dose on Rachel 12/30/20 at 1700 1837 (Given - Provider: Radha Bright, PRO) 1933 (Given - Provider: Radha Bright RN - Comment: Pt reports she takes this nightly) valACYclovir (VALTREX) tablet 500 mg 500 mg, oral, Daily, First dose on 01/03/21 at 1500, Indications: Chronic Suppression 1424 (Given - Provider: Roro Waldrop RN) Continuous Medication Order 01/01/2021 01/02/2021 01/03/2021 Lactated Ringer's (LR) infusion(Linked Group 1) 125 mL/hr, intravenous, Continuous, Starting on Rachel 12/30/20 at 1815, Until regular diet. PRN Medication Order 01/01/2021 01/02/2021 01/03/2021 cyclobenzaprine (FLEXERIL) tablet 5 mg 5 mg, oral, 3 times daily PRN, muscle spasms, Starting on 01/01/21 at 1943 3 (Given - Provider: Leti Garcia, PRO) 0629 (Given - Provider: Leti Garcia, PRO)1344 (Return to [facility] - Provider: Emely Rosario RN) diphenhydrAMINE (BENADRYL) tab/cap 25 mg 25 mg, oral, Nightly PRN, sleep, Starting on 12/31/20 at 0023 1931 (Given - Provider: Radha Bright, PRO) hydrocortisone (ANUSOL-HC) 2.5 % rectal cream rectal, 3 times daily PRN, itching, irritation, Starting on Rachel 12/30/20 at 1340, Indications: Hemorrhoids hydrOXYzine (ATARAX) tablet 25 mg 25 mg, oral, Every 4 hours PRN, anxiety, Starting on Sun12/31/20 at 1435 ondansetron (ZOFRAN) injection 4 mg(Linked Group 2) 4 mg, intravenous, Administer over 2 Minutes, Every 6 hours PRN, nausea, vomiting, if not tolerating PO, Starting on Sun12/31/20 at 1103, Start in 24 hours after Anesthesia no longer covering., Indications: Nausea and Vomiting 0027 (See Alternative - Provider: Leti Garcia, PRO)1033 (See Alternative - Provider: Radha Bright, PRO) ondansetron ODT (ZOFRAN-ODT) disintegrating tablet 4 mg(Linked Group 2) 4 mg, oral, Every 6 hours PRN, nausea, vomiting, Starting on Sun12/31/20 at 1103, Start in 24 hours after Anesthesia no longer covering., Indications: Nausea and Vomiting 0027 (Given - Provider: Leti Garcia RN)1033 (Given - Provider: Radha Bright RN) oxyCODONE (ROXICODONE) tablet 5 mg 5 mg, oral, Every 4 hours PRN, 1st line for pain, Starting on Sun12/31/20 at 1503, May administer 1 hour after 1st line agent for uncontrolled or increasing pain. Start in 24 hours after Anesthesia no longer covering., Indications: Pain 0309 (Given - Provider: Leti Garcia RN)1354 (Given - Provider: Radha Bright RN)2239 (Given - Provider: Leti Garcia RN) 0339 (Given - Provider: Caitlin Cintron RN)0931 (Given - Provider: Radha Bright RN)1339 (Given - Provider: Emely Rosario RN)1745 (Given - Provider: Radha Bright RN)2139 (Given - Provider: Leti Garcia, PRO) 0137 (Given - Provider: Leti Garcia RN)0649 (Given - Provider: Leti Garcia RN)1220 (Given - Provider: Roro Waldrop, PRO)1649 (Given - Provider: Roro Waldrop, PRO) simethicone (MYLICON) chewable tablet 80 mg 80 mg, oral, 4 times daily PRN (after meals, bedtime), flatulence, Starting on Sun12/30/20 at 1340, Indications: Flatulence 1019 (Given - [...] Count Last Ordered Date First Ordered Date pantoprazole DR (PROTONIX) e xtended release tablet 40 mg 1 01/03/2021 predniSONE (DELTASONE) tablet 5 mg 2 2020 sertraline (ZOLOFT) tablet 25 mg 2 01/02/20 21 12/30/2020 enoxaparin (LOVENOX) syringe 40 mg 1 2020 hydrOXYzine (ATARAX) tablet 25 mg 1 021 predniSONE (DELTASONE) tablet 15 mg 1 12/31 ramelteon (ROZEREM) tablet 8 mg 1 ceFAZolin (ANCEF) 2,000 mg/2 0 mL in sterile water (premix) 2,000 mg 1 12/30/2020 clindamycin (CLEOCIN) 600 mg /50 mL in sodium chloride 0.9% (premix) piggyback 600 mg 1 12/30/2020 clindamycin (CLEOCIN) 900 mg /50 mL in sodium chloride 0.9% (premix) piggyback 900 mg 1 12/30/2020 diphenhydrAMINE (BENADRYL) injection 25 mg 1 12/30/2020 gentamicin (GARAMYCIN) 130 m g in sodium chloride 0.9% 13 mL (10 mg/mL) syringe 1 12/30/2020 gentamicin 300 mg/30 mL in s odium chloride 0.9% (premix) - ADS Override Pull 1 12/30/2020 hydrocortisone (ANUSOL-HC) 2 .5 % rectal cream 1 12/30/2020 hydrocortisone (Solu-CORTEF) preservative free injection 200 mg 1 12/30/2020 HYDROmorphone (DILAUDID) injection 0.2 mg 1 12/30/2020 HYDROmorphone (DILAUDID) injection 0.4 mg 1 12/30/2020 hydrOXYchloroQUINE (PLAQUENI L) tablet 400 mg 1 12/30/2020 Lactated Ringer's (LR) bolus 1,000 mL 1 05/2020 Lactated Ringer's (LR) infusion 1 nalbuphine (NUBAIN) injection 5 mg 1 2020 naloxone (NARCAN) 0.4 mg/mL injection 0.04-0.4 mg 2 12/30/2020 ondansetron (ZOFRAN) injection 4 mg 2 12/30 ondansetron ODT (ZOFRAN-ODT) disintegrating tablet 4 mg 1 12/30/2020 oxytocin 30 unit/500 mL (0.0 6 unit/mL) in sodium chloride 0.9% (premix) solution 1 12/30/2020 polyethylene glycol (MIRALAX) packet 17 g 1 12/30/2020 predniSONE (DELTASONE) tablet 7.5 mg 1 05/2020 sertraline (ZOLOFT) tablet 50 mg 1 12/31/19 sodium chloride 0.9% flush 0.5-20 mL 4 05/2020 sodium chloride 0.9% irrigation 1 sterile water irrigation 1 12/30/2020 tranexamic acid (CYKLOKAPRON ) 1,000 mg/100 mL [...] 12/30/2020 documented in this encounter Care Teams Auto Le[employer] 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
--- OUTSIDE RECORDS SUMMARY | 2024-02-24 20:02 | XMS_ITS | Encounter Summary ---
Author Organization [facility] Healthcare Address [address] [place] [address] Care Team Providers Care Test Bore Helper Name Role Phone Huseyin Dangelo MD Unavailable [phone] Brian Mno MD Primary Care Provider + Ernie Shaw MD Unavailable [phone] Reason for Visit * Reason Comments Nausea And Vomitting Encounter Details Date Type Department Care Team (Late st Contact Info) Description 12/29/2020 10:44 AM CDT - 12/29/2020 2:28 PM CDT Hospital Encounter [address] [id number] Kristin Sorto MD [address] [id number] Discharge Disposition: Discharge to home or self [...] Sign Reading Time Taken Comments Blood Pressure 123/72 12/29/2020 12:55 PM CDT Pulse 108 12/29/2020 12:55 PM CDT Temperature 36.9 ??C (98.4 ??F) 12/29/2020 10:47 AM C DT Respiratory Rate 18 12/29/2020 10:47 AM CDT Oxygen Saturation 99% 12/29/2020 12:55 PM CDT Inhaled Oxygen Concentration - - Weight 87.2 kg (192 lb 3.2 oz) 12/29/2020 10:47 AM CDT Height - - Body Mass Index 34.05 12/27/2020 8:53 AM CDT documented in this encounter Discharge Diagnoses Diagnosis Late vomiting of - LATE VOMITING OF Diseases of the digestive system complicating , third trimester - DISEASES OF THE DIGESTIVE SYSTEM COMPLICATING , THIRD TRIMESTER Diarrhea, unspecified - DIARRHEA, UNSPECIFIED Complete placenta previa nos or without hemorrhage, third trimester - COMPLETE PLACENTA PREVIA NOS OR WITHOUT HEMORRHAGE, THIRD TRIMESTER Other mental disorders complicating , third trimester - OTHER MENTAL DISORDERS COMPLICATING , THIRD TRIMESTER Generalized anxiety disorder - GENERALIZED ANXIETY DISORDER Depression, unspecified - DEPRESSION, UNSPECIFIED Streptococcus B carrier state complicating - STREPTOCOCCUS B CARRIER STATE COMPLICATING Diseases of the respiratory system complicating , third trimester - DISEASES OF THE RESPIRATORY SYSTEM COMPLICATING , THIRD TRIMESTER Unspecified asthma, uncomplicated - UNSPECIFIED ASTHMA, UNCOMPLICATED Other specified diseases and conditions complicating - OTHER SPECIFIED DISEASES AND CONDITIONS COMPLICATING Rheumatoid arthritis, unspecified (HCC) - RHEUMATOID ARTHRITIS, UNSPECIFIED Systemic lupus erythematosus, unspecified (HCC) - SYSTEMIC LUPUS ERYTHEMATOSUS, UNSPECIFIED related renal disease, third trimester - RELATED RENAL DISEASE, THIRD TRIMESTER Chronic kidney disease, unspecified - CHRONIC KIDNEY DISEASE, UNSPECIFIED 35 weeks gestation of - 35 WEEKS GESTATION OF Personal history of nicotine dependence - PERSONAL HISTORY OF NICOTINE DEPENDENCE halfway (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 * Placenta Previa (AfterCare(R) Instructions(ER/ED)) (Turkish) * at 35 to 38 Weeks (AfterCare(R) Instructions(ER/ED)) (Turkish) documented in this encounter Medications at Time [...] for muscle spasms 6 tablet 12/18/2020 1 cyclobenzaprine (FLEXERIL) 5 mg tablet Take [...] directed by . 60 patch 01/03/2021 1 omeprazole (PriLOSEC) 20 mg capsule Take 20 mg by mouth daily 06/21/2019 1 oxyCODONE (ROXICODONE) 5 mg immediate release tabletIndications :Pain Take 1 tablet (5 mg total) by mouth every 4 (four) hours as needed for pain for up to 20 doses 20 tablet 01/03/[address] (PROTONIX) 40 mg EC tabletIndications :Stress Ulcer Prophylaxis Take 1 tablet (40 mg total) by mouth daily 30 tablet 11 01/03/2021 3 PNV with [id number] 27 mg iron- 1 mg tabletIndications :Vitamin Deficiency Prevention Take 1 tablet by mouth daily 30 tablet 1 01/04/2021 3 predniSONE (DELTASONE) 2.5 mg tablet Take 3 tablets (7.5 mg) by mouth daily 30 tablet 2 01/04/2021 2 predniSONE (DELTASONE) 5 mg tablet TAKE 2 TABLETS(10 MG) BY MOUTH DAILY 60 tablet 10/23/2020 1 vit no.[id number] (Classic ) 28 mg iron- 800 mcg [...] needed for flatulence 30 tablet 01/03/2021 3 valACYclovir (VALTREX) 500 mg tablet TAKE 1 TAB BY MOUTH 3 TIMES DAILY FOR 7 DAYS. 12/03/2019 1 documented as of this encounter Discharge Disposition Disposition Code Departure Means Destination Discharge to home or self care documented in this encounter H&P Notes * Neisha Arevalo MD - 12/29/2020 10:52 AM CDT Images from the original note were not included. Obstetrics H&P Chief Complaint: N/V/D Estimated Date of Delivery: 01/27/21 Provider: RENETTA HPI: Carito Madison is a 30 y.o. female at 35w6d gestation, dated by L=1 who presented today with complaints of nausea, vomiting, and diarrhea since last night. Denies ctx, bleeding, or lof. Endorses positive FM. Her is complicated by complete previa, poly, margina cord insert, lupus, generalized anxiety disorder, GBS positive. 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 Patient [...] MEDICATIONS : al & mag hydroxide with vrvstonzpib-grxmhvnjrlunyen-tycdmkqnq (MAGIC MOUTHWASH) suspension 1-1- aspirin 81 mg enteric coated tablet cyclobenzaprine (FLEXERIL) 5 mg tablet ferrous gluconate (ferrous gluconate) 324 mg (37.5 mg of elemental iron) tablet hydrOXYchloroQUINE (PLAQUENIL) 200 mg tablet omeprazole (PriLOSEC) 20 mg capsule predniSONE (DELTASONE) 5 mg tablet vit no.[id number] (Classic ) 28 mg iron- 800 mcg tablet sertraline (ZOLOFT) 25 mg tablet valACYclovir (VALTREX) 500 mg tablet Review of Sys: Negative except per HPI Vitals: Temp: [36.9 ??C (98.4 ??F)] 36.9 ??C (98.4 ??F) Pulse: [98-108] 108 Resp: [18] 18 BP: (121-123)/(72-76) 123/72 Physical Exam: General: NAD, mood appropriate Cardiovascular: Regular rate and rhythm Pulmonary: Clear to ausculation bilaterally Abdomen: Gravid, non-tender Extremities: Warm and well perfused Speculum Exam: deferred Cervix: / / deferred Monitoring: Baseline: 135 bpm, Variability: Moderate, Accelerations: Present and Decelerations: None Uterine Activity: No contractions seen on toco Interpretation: Reactive Ultrasound: Not indicated today Lab Review Recent Results (from the past 24 hour(s)) CBC with auto differential Collection Time: 12/29/20 11:20 AM Result Value Ref Range WBC 12.5 (H) 3.8 - 9.9 K/cumm Hgb 12.4 11.9 - 15.5 g/dL Hct 38.3 35.6 - 45.5 % Plt 217 150 - 400 K/cumm MPV 10.1 9.1 - 12.3 fL RBC 4.20 3.90 - 5.20 M/cumm MCV 91.2 81.3 - 96.4 fL MCH 29.5 27.1 - 33.3 pg MCHC 32.4 32.3 - 35.7 g/dL RDW CV 18.7 (H) 11.1 - 14.9 % RDW SD 62.1 (H) 35.7 - 48.1 fL NRBC abs 0.00 0.00 - 0.01 K/cumm Comprehensive metabolic panel Collection Time: 12/29/20 11:20 AM Result Value Ref Range Sodium 137 135 - 145 mmol/L Potassium, pl 3.8 3.3 - 4.9 mmol/L Chloride 103 97 - 110 mmol/L CO2 18 (L) 22 - 32 mmol/L Anion gap 16 (H) 2 - 15 mmol/L BUN 5 (L) 8 - 25 mg/dL Creatinine 0.45 (L) 0.60 - 1.10 mg/dL Glucose 100 70 - 199 mg/dL Calcium 9.5 8.5 - 10.3 mg/dL Bilirubin, total 0.3 0.1 - 1.2 mg/dL Protein, pl 6.8 6.5 - 8.5 g/dL Albumin 3.5 3.5 - 5.0 g/dL Alk phos 112 40 - 130 Units/L ALT 17 7 - 45 Units/L AST 24 10 - 45 Units/L Respiratory pathogen panel Nasopharyngeal Collection Time: 12/29/20 11:20 AM Specimen: Nasopharyngeal Result Value Ref Range Influenza A RNA Not Detected Not Detected Influenza B RNA Not Detected Not Detected RSV RNA Not Detected Not Detected COVID-19 RNA Not Detected Not Detected Coronavirus 229E RNA Not Detected Not Detected Coronavirus HKU1 RNA Not Detected Not Detected Coronavirus NL63 RNA Not Detected Not Detected Coronavirus OC43 RNA Not Detected Not Detected Adenovirus DNA Not Detected Not Detected Metapneumovirus RNA Not Detected Not Detected Rhinovirus/Enterovirus RNA Not Detected Not Detected Parainfluenza 1 RNA Not Detected Not Detected Parainfluenza 2 RNA Not Detected Not Detected Parainfluenza 3 RNA Not Detected Not Detected Parainfluenza 4 RNA Not Detected Not Detected B. pertussis DNA Not Detected Not Detected B. parapertussis DNA Not Detected Not Detected C. pneumoniae DNA Not Detected Not Detected M. pneumoniae DNA Not Detected Not Detected Employeed in healthcare? No status? Yes Group care resident? No Hospitalized? Yes Is patient in ICU? No Symptomatic as defined by CDC? Yes Differential, auto Collection Time: 12/29/20 11:20 AM Result Value Ref Range Neutrophil abs 10.6 (H) 1.7 - 6.5 K/cumm Imm gran abs 0.1 0.0 - 0.1 K/cumm Lymphocyte abs 1.0 0.8 - 3.3 K/cumm Monocyte abs 0.7 0.2 - 0.8 K/cumm Eosinophil abs 0.1 0.0 - 0.5 K/cumm Basophil abs 0.0 0.0 - 0.1 K/cumm Neutrophil pct 84.2 % Imm gran pct 0.9 % Lymphocyte pct 8.3 % Monocyte pct 5.7 % Eosinophil pct 0.6 % Basophil pct 0.3 % eGFR Collection Time: 12/29/20 11:20 AM Result Value Ref Range eGFR >90 (H) 90 - 130 mL/min/1.73 m2 POCT urinalysis dipstick Collection Time: 12/29/20 12:00 PM Result Value Ref Range Color, Urine, POC Dark Yellow Clarity, ur, POC Clear Clear Glucose, ur, POC Negative Negative mg/dL Bilirubin, ur, POC Negative Negative, Small, Moderate, Large Ketones, ur, POC Negative Negative Specific [place], POC 1.030 1.005 - 1.030 Blood, ur, POC Negative Negative pH, ur, POC 6.0 5.0 - 8.0 Protein, ur, POC Trace (A) Negative Urobilinogen, urine, POC 0.2 0.2 - 1.0 mg/dL Nitrite, ur, POC Negative Negative Leukocytes, ur, POC Negative Negative Lot Number [id number] Labs: Lab Results Component Value Date ABORH A Positive 11/29/2020 IDCOOMB Negative 11/29/2020 [id number] Nonreactive 12/06/2020 LABRPR Nonreactive 12/06/2020 GBS Positive Assessment and Plan Carito Madison is a 30 y.o. female at 35w6d who presented with complaints of nausea, vomiting and diarrhea. Nausea/vomiting/diarrhea: -Resolved with antiemetics zofran, and IVF -Diarrhea resolved declined imodium -ABD benign. -No vomiting noted, tolerating PO well prior to arrival. -No diarrhea noted. -CBC, CMP, and Respiratory panel unremarkable. -Encouraged small frequent meals and PO fluids. FWB Reactive NST Plan discussed with Dr. Arevalo. Pt to continue with scheduled c/s on tomorrow. Return precautions. Wendi Ivey NP 12/29/20 [facility] Fellow Attestation I have seen and discussed Carito Madison with the JOB CHANGE CREW MEMBER Wendi Ivey on 12/29/2020. I have evaluatedthe patient and reviewed the treatment plan and recommendations. I agree with the findings and the plan of care as documented in the JOB CHANGE CREW MEMBER's note with the following addendum: Briefly, this is a 30 y.o. at 35w6d with complicated by placenta previa who presents for nausea, vomiting, and diarrhea. Labs reassuring, symptoms improved. Planning for delivery [id number], tomorrow. Neisha Arevalo MD Maternal Medicine Fellow, PGY-5 Cosigned by Kristin Sorto MD at 12/30/2020 11:35 AM CDT Associated attestation - Kristin Sorto MD - 12/30/2020 11:35 AM CDT I did not evaluate the patient. I have reviewed the documentation and agree with the resident's decision making. documented in this encounter Procedure Notes * Avelino Triplett MD - 12/29/2020 2:28 PM CDT NST Note 30 y.o. at 35w6d FHR Baseline: 140 Variability: moderate Accelerations: present Decelerations: absent Contractions: absent Reactive: Yes I have reviewed the NST. Avelino Triplett MD * Wendi Ivey NP - 12/29/2020 1:56 PM CDT Procedures Date 12/29/20 Time [id number] FHR Baseline: 135bpm Variability: moderate Reactive: Yes Contractions: absent Comments: Overall reassuring tracing I have reviewed NST and instructed RN to take off monitor Wendi Ivey NP Cosigned by Avelino Triplett MD at 12/29/2020 3:49 PM CDT documented in this encounter Nursing Notes * Blair Martins RN - 12/29/2020 2:23 PM CDT Pt evaluated for c/o N/V and diarrhea x 1 day. Urine spec grav 1.030 and tachycardic. Labs sent. Covid and respiratory pathogens resulted negative. Treated with IVF bolus and antiemetic with decreasein resting heart rate and improvement in symptoms. Scheduled for primary c/sec tomorrow. documented in this encounter Plan of Treatment Not on file documented as of this encounter Procedures Procedure Name Priority Date/Time Associated Diagnosis Comments POCT URINALYSIS DIPSTICK Routine 12/29/2020 12:00 PM CDT EGFR STAT 12/29/2020 11:20 AM CDT DIFFERENTIAL AUTO STAT 12/29/2020 11: 20 AM CDT RESPIRATORY PATHOGEN PANEL STAT 12/29/2020 11:20 AM CDT CBC WITH AUTO DIFFERENTIAL STAT 12/29/2020 11:20 AM CDT COMPREHENSIVE METABOLIC PANEL STAT 12/29/2020 11:20 AM CDT documented in this encounter Results * (ABNORMAL) POCT urinalysis dipstick (12/29/2020 12:00 PM CDT) Color, Urine, POC Dark Yellow Clarity, ur, POC Clear Clear Glucose, ur, POC Negative Negative mg/dL Bilirubin, ur, POC Negative Negative, Small, Moderate, Large Ketones, ur, POC Negative Negative Specific [place], POC 1.030 1.005 - 1.030 Blood, ur, POC Negative Negative pH, ur, POC 6.0 5.0 - 8.0 Protein, ur, POC Trace(A) Negative Urobilinogen, urine, POC 0.2 0.2 - 1.0 mg/dL Nitrite, ur, POC Negative Negative Leukocytes, ur, POC Negative Negative Lot Number [id number] Urine 12/29/2020 12:0 0 PM CDT us Wendi Ivey [employer]BER POINT OF CARE TEST ORDERA BLES Final Result * (ABNORMAL) eGFR (12/29/2020 11:20 AM CDT) eGFR >90(H) 90 - 130 mL/min/1.7 3 m2 [facility] Comment: Interpretive Data Reference Interval Normal ?>/= [...] interpretive data was last reviewed 2020 Blood 12/29/2020 11:2 0 AM CDT 12/29/2020 11:39 AM CDT Wendi Ivey [employer]BER LAB BLOOD ORDERABLES Briana l Result [facility] Department [place] [address] * (ABNORMAL) Differential, auto (12/29/2020 11:20 AM CDT) Neutrophil abs 10.6(H) 1.7 - 6.5 K/cumm [facility] Imm gran abs 0.1 0.0 - 0.1 K/cumm [facility] Lymphocyte abs 1.0 0.8 - 3.3 K/cumm [facility] Monocyte abs 0.7 0.2 - 0.8 K/cumm [facility] Eosinophil abs 0.1 0.0 - 0.5 K/cumm [facility] Basophil abs 0.0 0.0 - 0.1 K/cumm [facility] Neutrophil pct 84.2 % [facility] Comment: Interpretive Data Percent cell count reference ranges are not reported, since discordance with absolute values may lead to misinterpretation of CBC data. Current Interpretive Data was last revised on 2017. Imm gran pct 0.9 % [facility] Comment: Interpretive Data Percent cell count reference ranges are not reported, since discordance with absolute values may lead to misinterpretation of CBC data. Current Interpretive Data was last revised on 2017. Lymphocyte pct 8.3 % [facility] Comment: Interpretive Data Percent cell count reference ranges are not reported, since discordance with absolute values may lead to misinterpretation of CBC data. Current Interpretive Data was last revised on 2017. Monocyte pct 5.7 % [facility] Comment: Interpretive Data Percent cell count reference ranges are not reported, since discordance with absolute values may lead to misinterpretation of CBC data. Current Interpretive Data was last revised on 2017. Eosinophil pct 0.6 % [facility] Comment: Interpretive Data Percent cell count reference ranges are not reported, since discordance with absolute values may lead to misinterpretation of CBC data. Current Interpretive Data was last revised on 2017. Basophil pct 0.3 % [facility] Comment: Interpretive Data Percent cell count reference ranges are not reported, since discordance with absolute values may lead to misinterpretation of CBC data. Current Interpretive Data was last revised on 2017. Blood 12/29/2020 11:2 0 AM CDT 12/29/2020 11:39 AM CDT Wendi Ivey NP LAB BLOOD ORDERABLES Briana narayan Result [facility] Department [place] [address] * Respiratory pathogen panel Nasopharyngeal (12/29/2020 11:20 AM CDT) Pathologist [facility] Influenza A RNA Not Detected Not Detected [facility] Influenza B RNA Not Detected Not Detected [facility] RSV RNA Not Detected Not Detected [facility] COVID-19 RNA Not Detected Not Detected [facility] Coronavirus 229E RNA Not Detected Not Detected [facility] Coronavirus HKU1 RNA Not Detected Not Detected [facility] Coronavirus NL63 RNA Not Detected Not Detected [facility] Coronavirus OC43 RNA Not Detected Not Detected [facility] Adenovirus DNA Not Detected Not Detected [facility] Metapneumovirus RNA Not Detected Not Detected [facility] Rhinovirus/Enterov irus RNA Not Detected Not Detected [facility] Parainfluenza 1 RNA Not Detected Not Detected [facility] Parainfluenza 2 RNA Not Detected Not Detected [facility] Parainfluenza 3 RNA Not Detected Not Detected [facility] Parainfluenza 4 RNA Not Detected Not Detected [facility] B. pertussis DNA Not Detected Not Detected [facility] B. parapertussis DNA Not Detected Not Detected [facility] C. pneumoniae DNA Not Detected Not Detected [facility] M. pneumoniae DNA Not Detected Not Detected [facility] Employeed in healthcare? No [facility] status? Yes [facility] Group care resident? No [facility] Hospitalized? Yes [facility] Is patient in ICU? No [facility] Symptomatic as defined by CDC? Yes [facility] Nasopharyngeal 12/29/2020 11 :20 AM CDT 12/29/2020 12:14 PM CDT Narrative [facility] - 12/29/2020 1:29 PM CDT Date of Symptom Onset->12/28/20 Reason for testing?->Symptomatic (not immunocompromised) Known exposure to confirmed or suspected COVID-19 case?->No Surveillance testing for transplant patient?->No ??Interpretive Data The [employer] FilmArray Respiratory Panel (RP2.1) assay is a multiplexed real-time PCR based nucleic acid test capable of simultaneous qualitative detection and identification of multiple respiratory viral and bacterial nucleic acids, including SARS Coronavirus 2 (the causative agent of COVID-19). The following bacteria, viruses and virus subtypes can be identified using the FilmArray RP2.1 assay: Bordetella pertussis, Bordetella parapertussis, Chlamydia pneumoniae, Mycoplasma pneumoniae, Adenovirus, SARS Coronavirus 2, seasonal coronaviruses (Coronavirus HKU1, Coronavirus NL63, Coronavirus 229E, and Coronavirus OC43), Influenza A, Influenza A subtype H1, Influenza A subtype H3, Influenza A subtype 2009 H1, Influenza B, Metapneumovirus, Parainfluenza 1, Parainfluenza 2, Parainfluenza 3, Parainfluenza 4, RSV, Rhinovirus/Enterovirus. Due to the genetic similarity between human Rhinovirus and Enterovirus, the FilmArray RP2.1 assay cannot reliably differentiate them. Coronavirus OC43 may cross-react with some isolates of Coronavirus HKU1. ??A dual positive result may be due to cross-reactivity or may indicate a co-infection. The detection and identification of specific viral and bacterial nucleic acids from individuals exhibiting signs and symptoms of a respiratory infection aids in the diagnosis of respiratory infection if used in conjunction with other clinical and epidemiological information. ??The results of this test should not be used as the sole basis for diagnosis, treatment, or other management decisions. ??Negative results in the setting of a respiratory illness may be due to infection with pathogens that are not detected by this test. ??Positive results do not rule out infection/co-infection with other organisms. ??The agent(s) detected by the FilmArray RP2.1 may not be the definite cause of disease. ??Additional testing (lab, imaging, etc.) may be necessary when evaluating a patient with possible respiratory tract infection. The FilmArray RP2.1 assay has FDA clearance for testing of J[employer]ANGE [employer]W MEMBER swabs. ??The performance characteristics of this assay have been determined by [facility]. Current interpretive data was last revised on 2020. ??Interpretive Data The [employer] FilmArray Respiratory Panel (RP2.1) assay is a multiplexed real-time PCR based nucleic acid test capable of simultaneous qualitative detection and identification of multiple respiratory viral and bacterial nucleic acids, including SARS Coronavirus 2 (the causative agent of COVID-19). The following bacteria, viruses and virus subtypes can be identified using the FilmArray RP2.1 assay: Bordetella pertussis, Bordetella parapertussis, Chlamydia pneumoniae, Mycoplasma pneumoniae, Adenovirus, SARS Coronavirus 2, seasonal coronaviruses (Coronavirus HKU1, Coronavirus NL63, Coronavirus 229E, and Coronavirus OC43), Influenza A, Influenza A subtype H1, Influenza A subtype H3, Influenza A subtype 2009 H1, Influenza B, Metapneumovirus, Parainfluenza 1, Parainfluenza 2, Parainfluenza 3, Parainfluenza 4, RSV, Rhinovirus/Enterovirus. Due to the genetic similarity between human Rhinovirus and Enterovirus, the FilmArray RP2.1 assay cannot reliably differentiate them. Coronavirus OC43 may cross-react with some isolates of Coronavirus HKU1. ??A dual positive result may be due to cross-reactivity or may indicate a co-infection. The detection and identification of specific viral and bacterial nucleic acids from individuals exhibiting signs and symptoms of a respiratory infection aids in the diagnosis of respiratory infection if used in conjunction with other clinical and epidemiological information. ??The results of this test should not be used as the sole basis for diagnosis, treatment, or other management decisions. ??Negative results in the setting of a respiratory illness may be due to infection with pathogens that are not detected by this test. ??Positive results do not rule out infection/co-infection with other organisms. ??The agent(s) detected by the FilmArray RP2.1 may not be the definite cause of disease. ??Additional testing (lab, imaging, etc.) may be necessary when evaluating a patient with possible respiratory tract infection. The FilmArray RP2.1 assay has FDA clearance for testing of [employer]BER swabs. ??The performance characteristics of this assay have been determined by [facility]. Current interpretive data was last revised on 2020. Wendi Ivey [employer] LAB MICROBIOLOGY - GENERA L ORDERABLES Final Result [facility] Department [place] [address] * (ABNORMAL) Comprehensive metabolic panel (12/29/2020 11:20 AM CDT) Sodium 137 135 - 145 mmol/L [facility] Potassium, pl 3.8 3.3 - 4.9 mmol/L [facility] Chloride 103 97 - 110 mmol/L [facility] CO2 18(L) 22 - 32 mmol/L [facility] Anion gap 16(H) 2 - 15 mmol/L [facility] BUN 5(L) 8 - 25 mg/dL [facility] Creatinine 0.45(L) 0.60 - 1.10 mg/dL [facility] Glucose 100 70 - 199 mg/dL [facility] Comment: Interpretive Data Fasting glucose >/= 126 [...] 2017. Calcium 9.5 8.5 - 10.3 mg/dL [facility] Bilirubin, total 0.3 0.1 - 1.2 mg/dL [facility] Protein, pl 6.8 6.5 - 8.5 g/dL [facility] Albumin 3.5 3.5 - 5.0 g/dL [facility] Alk phos 112 40 - 130 Units/L [facility] ALT 17 7 - 45 Units/L [facility] AST 24 10 - 45 Units/L [facility] Blood 12/29/2020 11:2 0 AM CDT 12/29/2020 11:39 AM CDT Wendi Ivey NP LAB BLOOD ORDERABLES Briana narayan Result [facility] Department [place] [address] * (ABNORMAL) CBC with auto differential (12/29/2020 11:20 AM CDT) WBC 12.5(H) 3.8 - 9.9 K/cumm [facility] Hgb 12.4 11.9 - 15.5 g/dL [facility] Hct 38.3 35.6 - 45.5 % [facility] Plt 217 150 - 400 K/cumm [facility] MPV 10.1 9.1 - 12.3 fL [facility] RBC 4.20 3.90 - 5.20 M/cumm [facility] MCV 91.2 81.3 - 96.4 fL [facility] MCH 29.5 27.1 - 33.3 pg [facility] MCHC 32.4 32.3 - 35.7 g/dL [facility] RDW CV 18.7(H) 11.1 - 14.9 % [facility] RDW SD 62.1(H) 35.7 - 48.1 fL [facility] NRBC abs 0.00 0.00 - 0.01 K/cumm [facility] Blood 12/29/2020 11:2 0 AM CDT 12/29/2020 11:39 AM CDT Wendi Ivey NP LAB BLOOD ORDERABLES Briana narayan Result [facility] One [facility] Department [place] [address] documented in this encounter Visit Diagnoses Not on filedocumented in this encounter Admitting Diagnoses Diagnosis Generalized [...] MAR Action Action Date Dose Rate Site dextrose 5% and Lactated Ringer's infusion 250 mL/hr, intravenous, Continuous, Starting on Sun12/29/20 at 1130, L&D Pre-Delivery New Bag 12/29/2020 11:27 AM CDT 250 mL/hr 250 mL/hr Lactated Ringer's (LR) bolus 1,000 mL 1,000 mL, intravenous, Once, On Sun12/29/20 at 1130, For 1 dose, L&D Pre-Delivery New Bag 12/29/2020 11:29 AM CDT 1,000 mL ondansetron (ZOFRAN) injection 8 mg 8 mg, intravenous, Administer over 2 Minutes, Once, On Sun12/29/20 at 1130, For 1 dose, L&D Pre-Delivery Given 12/29/2020 11:31 AM CDT 8 mg sodium chloride 0.9% flush 0.5-20 mL 0.5-20 mL, intra-catheter, Every 8 hours scheduled, First dose on Sun12/29/20 at 1400, L&D Pre-Delivery, Flush volume based on line type and size. sodium chloride 0.9% flush 0.5-20 mL 0.5-20 mL, intra-catheter, As needed, line care, Starting on Sun12/29/20 at 1046, L&D Pre-Delivery, Flush volume based on line type and size. Flush before and after each use. documented in this encounter Active and Recently Administered Medications Times are shown in CDT. Scheduled Medication Order 12/27/2020 12/28/2020 12/29/2020 Lactated Ringer's (LR) bolus 1,000 mL (COMPLETED) 1,000 mL, intravenous, Once, On Sun12/29/20 at 1130, For 1 dose, L&D Pre-Delivery 1129 (New Bag - Prov ider: Blair Martins RN)1235 (Stopped - Provider: Blair Martins RN) loperamide (IMODIUM) capsule 4 mg 4 mg, oral, Once, On Sun12/29/20 at 1130, For 1 dose, L&D Pre-Delivery, Maximum recommended dose 16 mg/day 1144 (Hold - Provide r: Blair Martins RN - Reason: Patient/family refused) ondansetron (ZOFRAN) injection 8 mg (COMPLETED) 8 mg, intravenous, Administer over 2 Minutes, Once, On Sun12/29/20 at 1130, For 1 dose, L&D Pre-Delivery 1131 (Given - Provid er: Blair Martins RN) sodium chloride 0.9% flush 0.5-20 mL 0.5-20 mL, intra-catheter, Every 8 hours scheduled, First dose on Sun12/29/20 at 1400, L&D Pre-Delivery, Flush volume based on line type and size. 1400 (Due) Continuous Medication Order 12/27/2020 12/28/2020 12/29/2020 dextrose 5% and Lactated Ringer's infusion 250 mL/hr, intravenous, Continuous, Starting on Sun12/29/20 at 1130, L&D Pre-Delivery 1127 (New Bag - Prov ider: Blair Martins RN)1240 (Stopped - Provider: Blair Martins RN) PRN Medication Order 12/27/2020 12/28/2020 12/29/2020 sodium chloride 0.9% flush 0.5-20 mL 0.5-20 mL, intra-catheter, As needed, line care, Starting on Sun12/29/20 at 1046, L&D Pre-Delivery, Flush volume based on line type and size. Flush before and after each use. documented in this encounter Orders Medications Ordered That Omer ht Not Have Been Administered Count Last Ordered Date First Ordered Date loperamide (IMODIUM) capsule 4 mg 1 021 sodium chloride 0.9% flush 0.5-20 mL 2 04/2020 documented in this encounter Additional Health Concerns Infection Onset Date Last Indicated Resolved Time COVID: Suspected 12/29/2020 12/29/2020 12/29/2020 1:30 PM CDT documented as of this encounter Care Teams Test Bore Helper Relationship Specialty [place] [address] [address] [place] [address] PCP - General 07/04/19 [place] [address] [address] [place] [address] 11/16/18 Ernie Shaw MD [address] [place] [address] [address] [address] Double Back Operator Obstetrics and Gynecology 06/10/20 documented as of this encounter
--- OUTSIDE RECORDS SUMMARY | 2024-02-24 20:02 | XMS_ITS | Encounter Summary ---
Author Organization [facility] Healthcare Address [address] [place] [address] Care Team Providers Care Air Conditioning Unit Tester Name Role Phone Huseyin Dangelo MD Unavailable [phone] Brian Mon MD Primary Care Provider + Ernie Shaw MD Unavailable [phone] Encounter Details Date Type Department Care Team (Late st Contact Info) Description 12/27/2020 4:25 PM CDT Lab [place] [phone] Pre-procedure lab exam Social History Tobacco Use Types Packs/Day Years [...] Procedure Name Priority Date/Time Associated Diagnosis Comments COVID-19 CORONAVIRUS RNA Routine 12/27/2020 9:35 AM CDT Pre-procedure lab exam documented in this encounter Results * COVID-19 Coronavirus RNA Nasopharyngeal (12/27/2020 9:35 AM CDT) COVID-19 RNA Not Detected [facility] Comment: Interpretive Data Synonyms for this test include: PCR and NAAT . ??Testing performed by the [facility] Molecular Infectious Disease Laboratory. The 2018-Novel Coronavirus Assay (COVID-19) Real Time RT-PCR assay is for in vitro diagnostic use under FDA emergency use authorization only. A negative RT-PCR result does not preclude infection with COVID-19 and should not be used as the sole basis for treatment or other patient management decisions. ??Additional sample types have been validated according to CLIA regulations. ?? Current Interpretive Data was last revised on April 01, 2020. First COVID-19 test? Unknown [facility] Employeed in healthcare? Unknown [facility] status? Yes [facility] Group care resident? No [facility] Hospitalized? No [facility] Is patient in ICU? No [facility] Symptomatic as defined by CDC? No [facility] Nasopharyngeal 12/27/2020 9: 35 AM CDT 12/27/2020 5:00 PM CDT Narrative [facility] - 12/28/2020 2:48 AM CDT What is the reason for testing?->Screening prior to scheduled procedure or surgery (batch) Margarita Marie MD LAB MICROBIOLOGY - GE NERAL ORDERABLES Final Result [facility] One [facility] [place] [address] documented in this encounter Visit Diagnoses Diagnosis Pre-procedure lab exam Pre-procedural laboratory examination documented in this encounter Care Teams Air Conditioning Unit Tester Relationship Specialty [place] [address] [address] [place] [address] PCP - General 07/04/19 [place] [address] [address] [place] [address] 11/16/18 Ernie Shaw MD [address] [place] [address] [address] [place] [address] Turn Sewer Obstetrics and Gynecology 06/10/20 documented as of this encounter
--- OUTSIDE RECORDS SUMMARY | 2024-02-24 20:02 | XMS_ITS | Encounter Summary ---
Author Organization [facility] Healthcare Address [address] [place] [address] Care Team Providers Care Med Asst Name Role Phone Huseyin Dangelo MD Unavailable [phone] Brian Mon MD Primary Care Provider + Ernie Shaw MD Unavailable [phone] Reason for Visit * Reason Onset Date Comments Incoming Call 12/29/2020 Encounter Details Date Type Department Care Team (Late st Contact Info) Description 12/29/2020 Nurse Triage [address] [address] Saúl Lo, PRO Social History Tobacco Use [...] Telephone Encounter - Saúl Lo RN - 12/29/2020 8:31 AM CDT Pt calling with c/o having really bad vomiting and diarrhea since last night around 2200. States she has been to the bathroom with diarrhea at least 10 times or more. Also started having lower abd cramping and pains on both sides of her back. Decreased appetite as well. Denies anyone else in the house being sick. States that she did take a COVID test on 12/27/20 that came back negative for her scheduled C/S tomorrow. Took flexeril and tylenol last night that helped some. Denies any chills/fevers. Baby is moving well. Pt is concerned and would like to be seen in the [facility]. Pt advised to come in now to be evaluated. Pt verbalizes understanding and states that she will be coming in. Reason for Disposition ? ? SEVERE diarrhea (e.g., 7 or more times / day more than normal) and age > 60 years Protocols used: [id number] documented in this encounter Plan of Treatment Not on file documented as of this encounter Visit Diagnoses Not on filedocumented in this encounter Care Teams Med Asst Relationship Specialty [place] [address] [address] [place] [address] PCP - General 07/04/19 [place] [address] [address] [facility] [place] [address] 11/16/18 Ernie Shaw MD [address] [place] [address] [address] [place] [address] Slicing Machine Operator Obstetrics and Gynecology 06/10/20 documented as of this encounter
--- OUTSIDE RECORDS SUMMARY | 2024-02-24 20:02 | XMS_ITS | Encounter Summary ---
Author Organization [facility] Healthcare Address [address] [place] [address] Care Team Providers Care Acquisition Marketing Coordinator Name Role Phone Huseyin Dangelo MD Unavailable Brian Mon MD Primary Care Provider + Ernie Shaw MD Unavailable [phone] Reason for Visit * Reason Onset Date Comments Incoming Call 12/21/2020 Encounter Details Date Type Department Care Team (Late st Contact Info) Description 12/21/2020 Nurse Triage [address] [address] Saúl Lo, PRO Social History Tobacco Use [...] Telephone Encounter - Saúl Lo RN - 12/21/2020 6:40 PM CDT Pt is 34.5 wks and calling to say that she is on her way in to the [facility] because she passed a huge clot a little while ago. After it happened she took a shower and washed up. Pt states that she has been having abd pain all day today. Also states that she has also been having diarrhea all day too. Says that she is currently not having any active vaginal bleeding. Also states that she senta picture of the clot to [facility]iba @ [facility]. Says she will be there soon. Reason for Disposition ??? MILD-MODERATE vaginal bleeding (e.g., small to medium clots; like mild menstrual period) (Exception: Single episode of faint spotting when wiping, or slight spotting after intercourse or pelvic exam) Protocols used: - VAGINAL BLEEDING GREATER THAN 20 WEEKS [id number] documented in this encounter Plan of Treatment Not on file documented as of this encounter Visit Diagnoses Not on filedocumented in this encounter Care Teams Acquisition Marketing Coordinator Relationship Specialty [place] [address] [address] [facility] [place] [address] PCP - General 07/04/19 [place] [address] [address] [place] [address] 11/16/18 Ernie Shaw MD [address] [place] [address] [address] [place] [address] Music Assistant Obstetrics and Gynecology 06/10/20 documented as of this encounter
--- OUTSIDE RECORDS SUMMARY | 2024-02-24 20:02 | XMS_ITS | Encounter Summary ---
Author Organization [facility] Healthcare Address [address] [place] [address] Care Team Providers Care Health Program Specialist Name Role Phone Huseyin Dangelo MD Unavailable [phone] Brian Mon MD Primary Care Provider + Ernie Shaw MD Unavailable [phone] Reason for Visit * Reason Onset Date Comments Incoming Call 12/26/2020 vaginal d ischarge Encounter Details Date Type Department Care Team (Late st Contact Info) Description 12/26/2020 Nurse Triage [address] [address] Fallon Callahan RN Social History Tobacco Use [...] Telephone Encounter - Fallon Callahan RN - 12/26/2020 7:41 AM CDT Reason for Disposition ??? [1] 24-36 weeks () AND [2] pinkish or brownish mucous discharge Answer Assessment - Initial Assessment Questions 1. DISCHARGE: Describe the discharge. (e.g., white, yellow, green, tejeda, foamy, cottage cheese-like) I had some dark brown, pink mucus discharge when I wiped this morning 2. ODOR: Is there a bad odor? no 3. ONSET: When did the discharge begin? This morning 4. RASH: Is there a rash in that area? If Yes, ask: Describe it. (e.g., redness, blisters, sores, bumps) no 5. ABDOMINAL PAIN: Are you having any abdominal pain? If Yes, ask: What does it feel like? (e.g., crampy, dull, intermittent, constant) Just some caramping, I had diarrhea this morning 6. ABDOMINAL PAIN SEVERITY: If present, ask: How bad is it? (e.g., Scale 1-10; mild, moderate, orsevere) - MILD (1-3): doesn't interfere with normal activities, abdomen soft and not tender to touch - MODERATE (4-7): interferes with normal activities or awakens from sleep, tender to touch - SEVERE (8-10): excruciating pain, doubled over, unable to do any normal activities mild 7. CAUSE: What do you think is causing the discharge? Unknown 8. OTHER SYMPTOMS: Do you have any other symptoms? (e.g., fever, itching, vaginal bleeding, pain with urination) no 9. MANE: What date are you expecting to deliver? 01/27/21 10. : How many weeks are you? 35 Protocols used: - VAGINAL [id number] 30 y/o with previa called with report of brown and pink mucus discharge after wiping this morning. States she had some cramping, had diarrhea this morning. Reports movement. Denies contractions. States she is to have C/S on this week and has MD appt. Tomorrow. Instructed to hydrate today and to come to [facility] if she has the discharge again or if she feels contractions, increasedabd. Pain, vaginal bleeding, LOF or decreased movement. Verbalizes understanding of instructions. documented in this encounter Plan of Treatment Not on file documented as of this encounter Visit Diagnoses Not on filedocumented in this encounter Care Teams Health Program Specialist Relationship Specialty [place] [address] [address] [facility] [address] [place] [address] PCP - General 07/04/19 [place] [address] [address] [place] [place] [address] 11/16/18 Ernie Shaw MD [address] [place] [address] [address] [place] [address] Associate Software Engineer Obstetrics and Gynecology 06/10/20 documented as of this encounter
--- OUTSIDE RECORDS SUMMARY | 2024-02-24 20:02 | XMS_ITS | Encounter Summary ---
Author Organization [facility] Healthcare Address [address] [place] [address] Care Team Providers Care Practice Support Specialist Name Role Phone Huseyin Dangelo MD Unavailable Brian Mon MD Primary Care Provider + Ernie Shaw MD Unavailable [phone] Encounter Details Date Type Department Care Team (Late st Contact Info) Description 01/07/2021 Telephone [facility] [address] [place] [id number] Angie Mcnair MD [address] [address] Social History Tobacco Use Types [...] encounter Miscellaneous Notes * Telephone Encounter - Angie Mcnair MD - 01/07/2021 7:44 AM ACQUISITION SPECIALIST Pt called labor desk to ask to speak to Dr. Arevalo. When informed that she would not be in the hospital until the morning, she asked to speak with a doctor who would relay the message. She states that her took a video of her section surgery and the patient just recently had the courage to watch it and was horrified and livid by what she saw. She states she saw the individualsin the OR shaking her baby and the baby looked like it was convulsing . She says she has shown it to other people, including a doctor, who she says are also horrified and have told her to get a bilingual branch manager. She says she will be in the hospital today to visit her baby in the NICU and wants to see Dr. Arevalo in person. She wants the truth and doesn't want it sugar coated . Notified Dr. Arevalo of this interaction. Angie Mcnair MD PGY-1 01/07/21 ISITION SPECIALIST documented in this encounter Plan of Treatment Not on file documented as of this encounter Visit Diagnoses Not on filedocumented in this encounter Care Teams Practice Support Specialist Relationship Specialty [place] [address] [address] [facility] [place] [address] PCP - General 07/04/19 [place] [address] [address] [facility] [place] [address] 11/16/18 Ernie Shaw MD [address] [place] [address] [address] [facility] [place] [address] School Guard Obstetrics and Gynecology 06/10/20 documented as of this encounter
--- OUTSIDE RECORDS SUMMARY | 2024-02-24 20:02 | XMS_ITS | Encounter Summary ---
Author Organization [facility] Address [address] [place] [address] Phone Care Team Providers Care Dial Marker Name Role Phone Huseyin Dangelo MD Unavailable [phone] Brian Mon MD Primary Care Provider + Ernie Shaw MD Unavailable Reason for Referral * (Routine) - Closed Specialty Diagnoses / Procedures Referred By Contac t Referred To Contact Diagnoses Antepartum tachycardia affecting care of mother Procedures nonstress test - Kristin Sorto MD [address] [place] [address] Phone: tel: fax: [facility] (All Locations) Referral ID Status Reason Start Date Expiration Date Visits Re quested Visits Authorized [id number] Closed 12/20/2020 01/19/2022 1 1 Reason for Visit * Reason Comments NST/BPP Visit Encounter Details Date Type Department Care Team (Latest Contact Info) Description 12/20/2020 9:00 AM CDT Clinical Support [facility] Obstetrics and Gynecology [address] [place] [address] Health 7[address] [place] [address] Antepartum tachycardia affecting care of mother (Primary Dx) Social History Tobacco Use Types [...] Procedure Name Priority Date/Time Associated Diagnosis Comments NONSTRESS TEST Routine 12/20/2020 Antepartum tachycardia affecting care of mother documented in this encounter Results * nonstress test - (12/20/2020) Kristin Sorto MD OB GYNE ORDERABLES Final Result documented in this encounter Visit Diagnoses Diagnosis Antepartum tachycardia affecting care of mother- Primary Abnormality in heart rate/rhythm, antepartum condition or complication documented in this encounter Care Teams Dial Marker Relationship Specialty [place] [address] [address] [place] [address] PCP - General 07/04/19 [place] [address] [address] [place] [address] 11/16/18 Ernie Shaw MD [address] [place] [address] [address] [place] [address] Eyeglass Frames Inspector Obstetrics and Gynecology 06/10/20 documented as of this encounter
--- OUTSIDE RECORDS SUMMARY | 2024-02-24 20:02 | XMS_ITS | Encounter Summary ---
Author Organization [facility] Healthcare Address [address] [place] [address] Care Team Providers Care Ceo & Co Founder Name Role Phone Huseyin Dangelo MD Unavailable [phone] Brian Mon MD Primary Care Provider + Ernie Shaw MD Unavailable [phone] Reason for Visit * Reason Onset Date Comments Follow-up 01/05/2021 Encounter Details Date Type Department Care Team (Late st Contact Info) Description 01/05/2021 Nurse Triage [address] [address] Saúl Lo, PRO Social History Tobacco Use [...] and Family Not on file 01/01/2021 Attends [employer] Not on file 01/01 Active Member [...] Telephone Encounter - Saúl Lo RN - 01/05/2021 10:01 AM CST Pt called back to say that she feels much better. She just got thru pumping and retook her temperature. States that her temp now is 98.5. She now states she took her b/p just now while she was talking to this RN and her b/p reading was 121/95. Asked if she is on any b/p medication and she states no. Says that she had no hx of Pre-E and no symptoms either. Asked what made her take her b/p and she stated that she was told by her doctor that if she gets an elevated temperature to take her b/p so that's what she did. Instructed to retake her b/p in about 15 minutes but make sure that she is not talking or doing any activity. Best to take it when she has been relaxed for about 10 minutes without running around doing different things or talking. Instructed to call this RN back with results fromher b/p. Pt verbalizes understanding and states she will do that. Pt also states she is going to call the clinic when they open up to let them know what's been going on. States that is a good idea togive them a call. Reason for Disposition ? ? [1] < 6 weeks AND [2] Systolic BP >= 140 OR Diastolic >= 90 Protocols used: BLOOD PRESSURE - [id number] T SALES ASSISTANT documented in this encounter Plan of Treatment Not on file documented as of this encounter Visit Diagnoses Not on filedocumented in this encounter Care Teams Ceo & Co Founder Relationship Specialty [place] [address] [address] [address] PCP - General 07/04/19 [place] [address] [address] [place] [address] 11/16/18 Ernie Shaw MD [address] [place] [address] [address] [place] [address] Die Cutter Obstetrics and Gynecology 06/10/20 documented as of this encounter
--- OUTSIDE RECORDS SUMMARY | 2024-02-24 20:02 | XMS_ITS | Encounter Summary ---
Author Organization [facility] Healthcare Address [address] [place] [address] Care Team Providers Care Braid Pattern Setter Name Role Phone Huseyin Dangelo MD Unavailable [phone] Brian Mon MD Primary Care Provider + Ernie Shaw MD Unavailable [phone] Reason for Referral * Diagnostic Imaging (Routine) - Canceled Specialty Diagnoses / Procedures Referred By Contac t Referred To Contact Diagnoses Tachycardia Supervision of high-risk , unspecified trimester Polyhydramnios in third trimester, not applicable or unspecified fetus Placenta previa specified as without hemorrhage in second trimester Marginal insertion of umbilical cord affecting management of mother in second trimester Procedures US Biophysical Profile WO Test Iris Bird MD Phone: tel: fax: [facility] (All Locations) Referral ID Status Reason Start Date Expiration Date V isits Requested Visits Authorized [id number] Canceled 12/06/2020 01/05/2022 5 5 Reason for Visit * Diagnostic Imaging (Routine) - Canceled Specialty Diagnoses / Procedures Referred By Contac t Referred To Contact Diagnoses Tachycardia Supervision of high-risk , unspecified trimester Polyhydramnios in third trimester, not applicable or unspecified fetus Placenta previa specified as without hemorrhage in second trimester Marginal insertion of umbilical cord affecting management of mother in second trimester Procedures US Biophysical Profile WO Test Iris Bird MD Phone: tel: fax: [facility] (All Locations) Referral ID Status Reason Start Date Expiration Date V isits Requested Visits Authorized [id number] Canceled 12/06/2020 01/05/2022 5 5 Encounter Details Date Type Department Care Team (Latest Contact Info) Description 12/27/2020 7:53 AM CDT - 12/27/2020 11:59 PM CDT Hospital Encounter [facility] [address], 7th Floor, [address] [place] [address] Iris Bird MD [address] [place] [phone] [place], [place] [id number] Tachycardia; Supervision of high-risk , unspecified trimester; Polyhydramnios in third trimester, not applicable or unspecified fetus; Placenta previa specified as without hemorrhage in second trimester; Marginal insertion of umbilical cord affecting management of mother in second trimester Discharge Disposition: Discharge to home or self [...] of Discharge al & mag hydroxide with simethicone-diphe nhydramine-lidoca ine (MAGIC MOUTHWASH) suspension 1-1-1 Swish and swallow 10 mL every 4 (four) hours as needed (oral ulcers) 300 mL 12/09/2020 03/16/2022 aspirin 81 mg enteric coated tablet Take 81 mg by mouth daily 01/03/2021 cyclobenzaprine (FLEXERIL) 5 mg tablet Take 1 tablet (5 mg total) by mouth 2 (two) times a day as needed for muscle spasms 6 tablet 12/18/2020 01/03/2021 ferrous gluconate (ferrous gluconate) 324 mg (37.5 mg of elemental iron) tabletIndications :Iron deficiency Take 1 tablet (324 mg total) by mouth 3 (three) times a day 90 tablet 2 11/10/2020 01/13/2021 hydrOXYchloroQUIN E (PLAQUENIL) 200 mg tablet Take 2 tablets (400 mg total) by mouth daily 60 tablet 5 09/30/2020 07/22/2021 omeprazole (PriLOSEC) 20 mg capsule Take 20 mg by mouth daily 06/21/2019 01/03/2021 predniSONE (DELTASONE) 5 mg tablet TAKE 2 TABLETS(10 MG) BY MOUTH DAILY 60 tablet 10/23/2020 01/03/2021 vit no.[id number] (Classic ) 28 mg iron- 800 mcg tablet Take 1 tablet by mouth daily 01/13/2021 sertraline (ZOLOFT) 25 mg tablet 10/18/2020 08/15/2021 valACYclovir (VALTREX) 500 mg tablet TAKE 1 TAB BY MOUTH 3 TIMES DAILY FOR 7 DAYS. 12/03/2019 01/03/2021 documented as of this encounter Discharge Disposition Disposition Code Departure Means Destination Discharge to home or self care documented in this encounter Plan of Treatment Not on file documented as of this encounter Procedures Procedure Name Priority Date/Time Associated Diagnosis Comments US BIOPHYSICAL PROFILE WO TEST Schedule Routine, Read Routine (OP Routine) 12/27/2020 7:53 AM CDT Tachycardia Supervision of high-risk , unspecified trimester Polyhydramnios in third trimester, not applicable or unspecified fetus Placenta previa specified as without hemorrhage in second trimester Marginal insertion of umbilical cord affecting management of mother in second trimester documented in this encounter Results * US Biophysical Profile WO Test (12/27/2020 7:53 AM CDT) Fetus# Fetus1 [facility] Placenta Details anterior, no placental masses, Previa-yes [facility] Estimated Weight 3,123 g&grams [facility] Presentation Transverse Lie [facility] Anatomical Region Laterality Modality N/A Ultrasound 12/27/2020 7:56 AM CDT us Iris Bird MD IMG OB US PROCEDURES Final Result documented in this encounter Visit Diagnoses Diagnosis Tachycardia Unspecified tachycardia Supervision of high-risk , unspecified trimester Polyhydramnios in third trimester, not applicable or unspecified fetus Placenta previa specified as without hemorrhage in second trimester Marginal insertion of umbilical cord affecting management of mother in second trimester documented in this encounter Care Teams Braid Pattern Setter Relationship Specialty [place] [address] [address] [facility] [place] [address] PCP - General 07/04/19 [place] [address] [address] [place] [address] 11/16/18 Ernie Shaw MD [address] [place] [address] Chief Projectionist Obstetrics and Gynecology 06/10/20 documented as of this encounter
--- OUTSIDE RECORDS SUMMARY | 2024-02-24 20:02 | XMS_ITS | Encounter Summary ---
Author Organization [facility] Medical Group Address [address] [place] [address] Care Team Providers Care Cell Changer Name Role Phone Huseyin Dangelo MD Unavailable [phone] Brian Mon MD Primary Care Provider + Ernie Shaw MD Unavailable [phone] Encounter Details Date Type Department Care Team (Late st Contact Info) Description 12/26/2020 Orders Only [facility] Testing Site - [facility]. Building [facility] [facility] [address] [place] [address] Margarita Marie MD [address] [facility] [place] [phone] [place] [phone] [place] [address] Pre-procedure lab exam (Primary Dx) Social History Tobacco Use Types [...] of this encounter Progress Notes * Blank Gonzalez MA - 12/26/2020 9:42 AM CDT Question Answer Comment Testing types: Pre-procedure ?? Date of Px/chemo/treatment/placement/transfer 12/30/2020 ?? Testing site patient will be sent to: [facility] ?? Date testing requested: 12/27/2020 ?? Testing: COVID-19 RNA ?? Does the patient currently work in a healthcare facility with direct patient contact? Unknown ?? Is the patient a resident of a congregate care or living setting? No ?? Is the patient ? Yes ?? Please select the performing region: [facility] documented in this encounter Plan of Treatment Not on file documented as of this encounter Results * COVID-19 Coronavirus RNA Nasopharyngeal (12/27/2020 9:35 AM CDT) COVID-19 RNA Not Detected [facility] Comment: Interpretive Data Synonyms for this test include: PCR and NAAT . ??Testing performed by the [facility] Molecular Infectious Disease Laboratory. The 2018-Novel Coronavirus [...] April 01, 2020. First COVID-19 test? Unknown [facility] Employeed in healthcare? Unknown [facility] status? Yes [facility] Group care resident? No [facility] Hospitalized? No [facility] Is patient in ICU? No [facility] Symptomatic as defined by CDC? No [facility] Nasopharyngeal 12/27/2020 9: 35 AM CDT 12/27/2020 5:00 PM CDT Narrative ARPITA SILVEIRA - 12/28/2020 2:48 AM CDT What is the reason for testing?->Screening prior to scheduled procedure or surgery (batch) Margarita Marie MD LAB MICROBIOLOGY - NERAL ORDERABLES Final Result [facility] Department [place] [address] documented in this encounter Visit Diagnoses Diagnosis Pre-procedure lab exam- Primary Pre-procedural laboratory examination Pre-procedure lab exam Pre-procedural laboratory examination documented in this encounter Care Teams Cell Changer Relationship Specialty [place] [address] [address] [facility] [place] [address] PCP - General 07/04/19 [place] [address] [address] [facility] [place] [address] 11/16/18 Ernie Shaw MD [address] [facility] [place] [address] Lock Operator Obstetrics and Gynecology 06/10/20 documented as of this encounter
--- OUTSIDE RECORDS SUMMARY | 2024-02-24 20:02 | XMS_ITS | Encounter Summary ---
Author Organization [facility] Address [address] [place] [address] Phone Care Team Providers Care Wireless Internet Installer Name Role Phone Huseyin Dangelo MD Unavailable [phone] Brian Mon MD Primary Care Provider + Ernie Shaw MD Unavailable [phone] Reason for Visit * Reason Comments High Risk Gestation Encounter Details Date Type Department Care Team (Latest Contact Info) Description 12/27/2020 8:30 AM CDT Office Visit [facility] Maternal- Medicine [address] [facility] 7th [address] [place] [address] Crystal Murray MD [address] [facility] [address] [phone] [place] [address] Adrenal insufficiency (CMS/HCC) ([facility]) (Primary Dx); Supervision of high-risk , unspecified trimester; Anemia during in third trimester; Generalized anxiety disorder; Lupus (CMS/HCC) (HCC); Marginal insertion of umbilical cord affecting management of mother in second trimester; Placenta previa ; Polyhydramnios in third trimester, not applicable or unspecified fetus Social History Tobacco Use Types Packs/Day Years [...] Sign Reading Time Taken Comments Blood Pressure 114/78 12/27/2020 8:53 AM CDT Pulse 107 12/27/2020 8:53 AM CDT Temperature - - Respiratory Rate - - Oxygen Saturation 98% 12/27/2020 8:53 AM CDT Inhaled Oxygen Concentration - - Weight 87.1 kg (192 lb) 12/27/2020 8:53 AM CDT Height 160 cm (5' 3 ) 12/27/2020 8:53 AM CDT Body Mass Index 34.01 12/27/2020 8:53 AM CDT documented in this encounter Progress Notes * Crystal Murray MD - 12/27/2020 8:30 AM CDT [facility] Return Visit 12/27/2020 Carito Spence is a 30 y.o. at 35w4d by 1st trimester Ultrasound who is here for a return OB visit. Her is complicated by Multiple medical comorbidities. Subjective: She reports movement normal, no bleeding, no contractions and no leaking. She is reporting cramping that she definitively states are not contractions and localizes to her inguinal region. Objective: BP 114/78 Pulse 107 Ht 160 cm (5' 3 ) Wt 192 lb (87.1 kg) LMP (LMP Unknown) Comment: LMP end of Mar 2020 SpO2 98% BMI 34.01 kg/m?? General: NAD Abdomen: Soft, gravid Extremities: WWP, no edema Ultrasound: 12/27/2020 35w4d EFW 3123 grams (87 %), transverse presentation, BRI 28.7 cm, placenta previa - anterior Assessment/Plan: Carito Spence is a 30 y.o. at 35w4d by 1st trimester Ultrasound with apregnancy complicated by the following: Problem List Polyhydramnios in third trimester, not applicable or unspecified fetus Overview Mild polyhydramnios previously noted and counseled; most recently normal diabetic screen normal 10/15: fluid normal 12/06: DVP 9.3, BRI 24.0 12/13/ DVP 5.7 cm BRI 15.6 cm 12/20; BRI 25 cm 12/27/2020 BRI 28.7 cm, BPP 10/03 Lupus (CMS/HCC) (HCC) Overview - S/p counseling at initial visit - [...] for renal surveillance. -Baseline preElabs, P:C 91 Adrenal insufficiency (CMS/HCC) (HCC) - Primary Overview Suspected secondary adrenal insufficiency- Current regimen: 7.5 mg daily - Delivery plan (per Dr. Cortes filter cloth maker): IV infusion of hydrocortisone 200 mg/24 hours and15 mg/daily of prednisone for the following 48 hours. After that, can decrease the dose to 5 mg daily. Supervision of high-risk , unspecified trimester Overview PREFERS TO NOT HAVE MEDICAL STUDENTS INVOLVED IN HER CARE [x] Full MFM Care; [x] Red Team- pt preference [x] Referring Provider: Dr. Sheldon Delgado [x] Dating Criteria: US 06/04/20 with MANE 01/30/21 [x] Labs: Rh [ A+], Ab [Neg ], Rubella [Imm ], HIV [Neg ], HepBSAg [Neg ], RPR [NR ], GC/CT [negative/negative] [x] Genetic Screening: [facility] low risk 07/09 [x] CBC/Hgb 11.7/35.0/306 [x] [...] Flu Shot (Oct-Jan): declines, previously had Guillian Trinchera [x] Tdap (27-36wks): 11/23/2020 [x] COVID Vaccine: s/p both doses 3rd Tri Labs: [x] CBC/HIV/RPR: 10./31.6/233/ HIV:NR/ RPR: NR [x] GBS: needs 12/27/2020 [x] COVID testing: set up for 12/27/20 at [facility] [x] hibiclens Provided 12/20 Counselling [x] MOD: [...] LARCS [] Method of feeding: Breast [] Livestock Inspector: [] PP Depression Discussed: Relevant Orders Group B streptococcus culture, penicillin allergic Vaginal/Rectal Generalized anxiety disorder Overview Ms spence reports severe anxiety and near panic in this thus far. This is not a new issuefor her, but it has significantly worsened in . S/p counseling at initial visit 12/27/2020 Still with anxiety regarding delivery. We discussed she can request short term anxiolyticafter baby is delivered. Offered music in OR which she was already aware and would desire. Plan: -Prescribed zoloft -psych referral Marginal insertion of umbilical cord affecting management of mother in second trimester Overview Marginal cord insertion can be associated with growth restriction. Serial growths- 12/27/2020 currently AGA Placenta previa Overview Update 11/23/20: S/p 4 bleeds, has been [...] GI consult. Dr. Shukla to room to counselling psychologist patient regarding risks of daily bleeding in thesetting of a previa and a dropping H&H. [...] PAS. We discussed recommendation for evaluation in [facility] secondary to nonspecific cramping in inguinal region. Patient declines as this is typical for her. [facility] precautions. She is scheduled for delivery on . Anemia during in third trimester Overview 11/09/20 [facility] POCT Hgb 9.3 - pt reported [...] with previa. Type and Cross on Admission. No F/U visit. Needs 2 week Post Op and 6 weeks PP. Crystal Murray MD documented in this encounter Plan of Treatment Not on file documented as of this encounter Results * (ABNORMAL) Group B streptococcus culture, penicillin allergic Vaginal/Rectal (12/27/2020 11:05 AM CDT) Report Final Report: Streptococcus agalactiae (Group B Streptococci) (.) [facility] Organism STREPTOCOCCUS AGALACTIAE (GROUP B STREPTOCOCCI) [facility] Vaginal/Rectal 12/27/2020 11 :05 AM CDT 12/27/2020 12:13 PM CDT Narrative [facility] - 12/30/2020 2:08 PM CDT Testing performed by [facility] ([phone]). Organism Antibiotic Method Susceptibility Streptococcus agalactiae (Gr [...] MICROBIOLOGY - GEN ERAL ORDERABLES Final Result [facility] Department [place] [address] documented in this encounter Visit Diagnoses Diagnosis Adrenal insufficiency (HCC)- Primary Glucocorticoid deficiency Supervision of high-risk , unspecified trimester Anemia during in third trimester Generalized anxiety disorder Lupus Systemic lupus erythematosus Marginal insertion of umbilical cord affecting management of mother in second trimester Placenta previa Polyhydramnios in third trimester, not applicable or unspecified fetus Supervision of high-risk , unspecified trimester documented in this encounter Discontinued Medications Medication Sig Discontinue Reason Start Date End Da te ondansetron ODT (ZOFRAN-ODT) 8 mg disintegrating tablet Dissolve 1 tablet on top of tongue then swallow with saliva every 8 hours as needed for nausea or vomiting Therapy completed 08/16/2020 12/27/2020 polyethylene glycol (MIRALAX) 17 gram/dose powder Take 17 g by mouth 2 (two) times a day Therapy completed 08/24/2020 12/27/2020 documented as of this encounter Additional Health Concerns Infection Onset Date Last Indicated Resolved Time COVID: Suspected 12/29/2020 12/29/2020 12/29/2020 1:30 PM CDT documented as of this encounter Care Teams Wireless Internet Installer Relationship Specialty [place] [address] [address] [place] [address] PCP - General 07/04/19 [place] [address] [address] [facility] [place] [address] 11/16/18 Ernie Shaw MD [address] [place] [address] [address] [place] [address] [employer] Obstetrics and Gynecology 06/10/20 documented as of this encounter
--- OUTSIDE RECORDS SUMMARY | 2024-02-24 20:02 | XMS_ITS | Encounter Summary ---
Author Organization [facility] Healthcare Address [address] [place] [address] Care Team Providers Care Material Disposition Inspector Name Role Phone Huseyin Dangelo MD Unavailable [phone] Brian Mon MD Primary Care Provider + Ernie Shaw MD Unavailable [phone] Reason for Visit * Reason Onset Date Comments Follow-up 01/05/2021 Encounter Details Date Type Department Care Team (Late st Contact Info) Description 01/05/2021 Nurse Triage [address] [address] Saúl Lo, PRO Social History Tobacco Use [...] Encounter - Saúl Lo RN - 01/05/2021 10:14 AM CST Pt calls back stating that she was starting to feel warm again and both her breast hurts. Think shemight be getting possible mastitis. Took her temperature while on the phone just now and temperature was 98.1. Pt states she was calling to get the number to the Flying Shear Operator. Asked if she retook her b/p. States that she did not take it again because she had fell asleep. Pt informed that its important to retake her b/p again after getting a elevated result to make sure b/p's aren't staying up. Instructed to retake b/p and call back with results. Also reminded to call the clinic and givethem an update on what's been going on with her. Pt verbalizes understanding and states she will dothat. Reason for Disposition ??? Patient's symptoms are safe to treat at home per nursing judgment Protocols used: NO PROTOCOL [id number] ENING TECHNICIAN documented in this encounter Plan of Treatment Not on file documented as of this encounter Visit Diagnoses Not on filedocumented in this encounter Care Teams Material Disposition Inspector Relationship Specialty [place] [address] [address] [place] [address] PCP - General 07/04/19 [place] [address] [address] [place] [address] 11/16/18 Ernie Shaw MD [address] [place] [address] [address] [facility] [place] [address] Licensing Manager Obstetrics and Gynecology 06/10/20 documented as of this encounter
--- OUTSIDE RECORDS SUMMARY | 2024-02-24 20:02 | XMS_ITS | Encounter Summary ---
Author Organization [facility] Healthcare Address [address] [place] [address] Care Team Providers Care Birthing Nurse Name Role Phone Huseyin Dangelo MD Unavailable [phone] Brian Mon MD Primary Care Provider + Ernie Shaw MD Unavailable [phone] Reason for Visit * Reason Onset Date Comments Patient Education 12/27/2020 Pre-procedure telephone call for scheduled Encounter Details Date Type Department Care Team (Late st Contact Info) Description 12/27/[address] [address] Violette Ludwig, RN Patient Education (Pre-procedure telephone call for scheduled ) Social History Tobacco Use Types Packs/Day [...] Miscellaneous Notes * Telephone Encounter - Violette Ludwig RN - 12/27/2020 12:09 PM CDT 1149: Contacted patient by telephone as pre-procedure call for scheduled C- section on 12/30/2020 at 1130 with hospital arrival at 0930. Patient verified her date. She has numerous allergies - reviewed all allergies and what they are with the patient.. Her is coming with her and will bein the operating room with her. Verified date and time of hospital arrival. Patient knows how to find [employer], parking, and the 5th floor. This is Carito's first child. Visiting guidelines reviewed: May have two visitors each day - cannot be switched out; no visitors under the age of 12 - including siblings; visitors will be signing in and out at the medical office secretary desk; our visitor day is considered to be from 0900 one day to 0859 the next day; if a visitor leaves the hospital, they cannotreturn until the next visitor day; please let us know if any of your visitors begins to feel sick; everyone is asked to wear a mask when coming to the hospital, whenever they are in the hallways, andwhenever hospital staff are in their room; if you are in the room by yourselves, you may take your masks off - please put them on again when hospital staff come in the room; everyone is screened for COVID 19 and have their temperature taken on hospital arrival; please bring all suitcases, bags, andthe car seat in at the time you arrive; your visitors are asked to stay in your room unless they need to go to the cafeteria, chapel, or the restroom; if your visitor is staying overnight, they are asked to check in with the lobby screeners each morning to be rescreened. COVID-19: COVID testing wasdone on 12/27/2020. Please stay home as much as possible, avoid as many people as possible, wash your hands frequently, and if you have to leave your house please wear a mask from the time of this call until hospital arrival. We do not want you to get sick before you come in to have your baby. Discussed: No solid food for 8 hours before surgery or anything to drink that you cannot see through, mayhave clear liquids until 2 hours before surgery, and nothing to eat or drink for 2 hours before surgery; requested not to smoke or drink alcohol for at least 24 hours before surgery; she will be discussing which medications she should take the morning of surgery with her provider; requested to shower, using clean washcloth and towel each time, with antibacterial soap the night before surgery and the morning of surgery, making sure to clean her abdomen well - 2 minutes, and putting on clean clothes each time, and using clean bedding the night before surgery; may brush her teeth and rinse her mouth the morning of surgery; requested not to wear makeup, nail greek, jewelry, body or tongue piercings; she does not wear glasses or contacts; requested to leave all valuables at home; she does nothave an Advance Directive or a written plan; provided the location of the Unit; visitor meals are not provided - may bring snacks from home or visitors may go to the cafeteria, coffee/gift shop, or pick-up food delivered to the lobby - provided the location and hours of operation for the cafeteria; patient parking pass; visitor parking is not validated; discussed discounted, multi-use parking pass. Questions were answered. Provided call back number for additional questions. Patient indicated understanding of all information provided. documented in this encounter Plan of Treatment Not on file documented as of this encounter Visit Diagnoses Not on filedocumented in this encounter Care Teams Birthing Nurse Relationship Specialty [place] [address] [address] [place] [address] PCP - General 07/04/19 [place] [address] [address] [place] [address] 11/16/18 Ernie Shaw MD 4 [facility] [address] [address] Farm Truck Driver Obstetrics and Gynecology 06/10/20 documented as of this encounter
--- OUTSIDE RECORDS SUMMARY | 2024-02-24 20:02 | XMS_ITS | Encounter Summary ---
Author Organization [facility] Healthcare Address [address] [place] [address] Care Team Providers Care Emergency Management Coordinator Name Role Phone Huseyin Dangelo MD Unavailable [phone] Brian Mon MD Primary Care Provider + Ernie Shaw MD Unavailable [phone] Reason for Visit * Reason Comments Vaginal Bleeding - Encounter Details Date Type Department Care Team (Latest Contact Info) Description 12/21/2020 4:25 PM CDT - 12/21/2020 6:54 PM CDT Hospital Encounter [address] [id number] Crystal Murray MD [address] [facility] [phone] [place] [address] Iris Bird MD [address] [facility] [address] [phone] [place] [address] Discharge Disposition: Discharge to home or self [...] Sign Reading Time Taken Comments Blood Pressure 127/86 12/21/2020 4:42 PM CDT Pulse 110 12/21/2020 4:42 PM CDT Temperature 36.6 ??C (97.8 ??F) 12/21/2020 5:08 PM CD T Respiratory Rate 18 12/21/2020 4:42 PM CDT Oxygen Saturation - - Inhaled Oxygen Concentration - - Weight - - Height - - Body Mass Index - - documented in this encounter Discharge Diagnoses Diagnosis Supervision of with history of pre-term labor, third trimester - SUPERVISION OF WITH HISTORY OF PRE-TERM LABOR, THIRD TRIMESTER Complete placenta previa with hemorrhage, third trimester - COMPLETE PLACENTA PREVIA WITH HEMORRHAGE, THIRD TRIMESTER Maternal care for low transverse scar from previous delivery - MATERNAL CARE FOR LOW TRANSVERSE SCAR FROM PREVIOUS DELIVERY related renal disease, third trimester - RELATED RENAL DISEASE, THIRD TRIMESTER Chronic kidney disease, unspecified - CHRONIC KIDNEY DISEASE, UNSPECIFIED 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) ([facility]) - GLOMERULAR DISEASE IN SYSTEMIC LUPUS ERYTHEMATOSUS [...] arthritis, unspecified (HCC) - RHEUMATOID ARTHRITIS, UNSPECIFIED 34 weeks gestation of - 34 WEEKS GESTATION OF Personal history of nicotine dependence - PERSONAL HISTORY OF NICOTINE DEPENDENCE prison (current) use of systemic steroids - COIL WINDER STRAP (CURRENT) USE OF SYSTEMIC STEROIDS prison (current) use of aspirin - COIL WINDER STRAP (CURRENT) USE OF ASPIRIN Other termite control servicer (current) drug therapy - OTHER COIL WINDER STRAP (CURRENT) DRUG THERAPY Acquired absence of other specified parts of digestive tract - ACQUIRED ABSENCE OF OTHER SPECIFIED PARTS OF DIGESTIVE TRACT Allergy status to other drugs, medicaments and biological substances - ALLERGY STATUS TO OTHER DRUGS, MEDICAMENTS AND BIOLOGICAL SUBSTANCES Allergy status to other antibiotic agents - ALLERGY STATUS TO OTHER ANTIBIOTIC AGENTS Allergy status to penicillin - ALLERGY STATUS TO PENICILLIN documented in this encounter Discharge Instructions * Attachments The following attachments cannot be sent through Care Everywhere. * Placenta Previa (Discharge Care) (Hungarian) * at 31 to 34 Weeks (Discharge Care) (Hungarian) documented in this encounter Medications at Time [...] MOUTH DAILY 60 tablet 10/23/2020 1 vit no.[id number] (Classic ) 28 mg iron- 800 mcg [...] documented in this encounter Progress Notes * Margarita Phillips, KINGA - 12/21/2020 4:44 PM CDT Obstetrics H&P Chief Complaint: vaginal bleeding Estimated Date of Delivery: 01/27/21 Provider: RENETTA HPI: Carito Madison is a 30 y.o. female at 34w5d gestation, dated by L=1st Her is complicated by placenta previa, SLE with secondary adrenal insufficiency, anxiety,MAEVE and polyhydramnios Patient presented today after having episode of bright red bleeding at 1500 today after using the bathroom. States she noticed the clot when she wiped, states it was about the size of her palm of stringy clots. Denies any bleeding since then. Endorses good FM. Reports cramping since this morning inlower abdomen and low back. Took flexeril at home with no improvement. Denies recent intercourse ortrauma. Patient Denies: [] Contractions [x] Shortness of Breath [x] Nausea/Vomitting [] Vaginal Bleeding [x] Headache [x] Abdominal Pain [x] Leaking of Fluid [x] Visual changes [x] Decreased Movement OB History Para Term AB Living 3 0 0 0 2 0 SAB TAB Ectopic Multiple Live Births 2 0 0 0 0 # Outcome Date GA Lbr Rojas/2nd Weight Sex Delivery Anes PTL Lv 3 Current 2 2019 16w0d 1 2017 TIE BUYER History: No LMP recorded (lmp unknown). Patient [...] MEDICATIONS : al & mag hydroxide with ourfvhbnsnl-hfoxmvghjgjjoyx-gqotagyja (MAGIC MOUTHWASH) suspension 1-1-1 aspirin 81 mg enteric coated tablet cyclobenzaprine (FLEXERIL) 5 mg tablet ferrous gluconate (ferrous gluconate) 324 mg (37.5 mg of elemental iron) tablet hydrOXYchloroQUINE (PLAQUENIL) 200 mg tablet omeprazole (PriLOSEC) 20 mg capsule ondansetron ODT (ZOFRAN-ODT) 8 mg disintegrating tablet polyethylene glycol (MIRALAX) 17 gram/dose powder predniSONE (DELTASONE) 5 mg tablet vit no.115-hyvr-pmxza (Classic ) 28 mg iron- 800 mcg tablet sertraline (ZOLOFT) 25 mg tablet valACYclovir (VALTREX) 500 mg tablet Review of Sys: Negative except per HPI Vitals: Temp: [36.6 ??C (97.8 ??F)-36.9 ??C (98.5 ??F)] 36.6 ??C (97.8 ??F) Pulse: [110] 110 Resp: [18] 18 BP: (127)/(86) 127/86 Physical Exam: General: NAD, mood appropriate Cardiovascular: Regular rate and rhythm Pulmonary: Clear to ausculation bilaterally Abdomen: Gravid, non-tender Extremities: Warm and well perfused Speculum Exam: Nitrizine test is negative, Ferning test is negative, cx visually closed. No blood noted in vault or at the cervical os. Clear/white physiologic discharge. wet prep results: resulted at bedside: no pathogens Cervix: / / vis closed. Monitoring: Baseline: 135 bpm, Variability: Moderate, Accelerations: Present and Decelerations: None Uterine Activity: No contractions seen on toco Interpretation: Reactive Ultrasound: Not indicated Labs: Lab Results Component Value Date ABORH A Positive 11/29/2020 IDCOOMB Negative 11/29/2020 [id number] Nonreactive 12/06/2020 LABRPR Nonreactive 12/06/2020 Assessment and Plan Carito A Los is a 30 y.o. female at 34w5d who presented with vaginal bleeding. #Vaginal Bleeding - Pt with known placenta previa - Denies recent trauma or intercourse - 1 episode of bright red bleeding today with associated mild cramping - SSE: - ferning, - valsalva, - nitrazine, no blood in vault or at cervical os. Cx visually closed. - recommended Inpatient observation in setting of bleeding previa. Dr Bird spoke in depth with patient on risks of bleeding previa and importance of close inpatient observation. Patient understand risks and still desires discharge today from [facility]. Bleeding precautions reviewed. #FWB Reactive NST Good FM Reviewed Kick counts pCS scheduled 12/[address] Bird. Recommended inpatient observation, patient declines. Discharge homewith strict return precautions. CS scheduled 12/30. Margarita Phillips NP 12/21/20 Cosigned by Iris Bird MD at 12/21/2020 7:16 PM CDT Associated attestation - Iris Bird MD - 12/21/2020 7:16 PM CDT I have seen and examined the patient on 12/21/20. I agree with the findings and plan of care as documented in the resident's/fellow's note.. documented in this encounter Procedure Notes * Maura Moreno MD - 12/21/2020 6:54 PM CDT Procedures FHR Baseline: 135 Variability: moderate Accelerations: present Decelerations: absent Contractions: absent Reactive: Yes I have reviewed the NST. Maura Moreno MD * Margarita Phillips NP - 12/21/2020 6:52 PM CDT Procedures FHR Baseline: 135 Variability: moderate Reactive: Yes Contractions: absent Comments: Overall reassuring tracing I have reviewed NST and instructed RN to take off monitor Margarita Phillips NP Cosigned by Maura Moreno MD at 12/21/2020 7:04 PM CDT documented in this encounter Nursing Notes * Shelley Brand, PRO - 12/21/2020 6:51 PM CDT Patient 34w5d with complete previa arrived to [facility] with reports of passing a large blood clot today at 1500 also reports having some lower abd cramping. VSS. +FM. Category [address] Bird at bedside discussing plan of care with pt. Patient evaluated by:Margarita Phillips NP/Dr. Bird Plan of care:Discharge home with labor precautions. Disposition:Discharged home with bleeding and labor precautions. documented in this encounter Plan of Treatment Not on file documented as of this encounter Procedures Procedure Name Priority Date/Time Associated Diagnosis Comments POCT URINALYSIS DIPSTICK Routine 12/21/2020 6:37 PM CDT documented in this encounter Results * POCT urinalysis dipstick (12/21/2020 6:37 PM CDT) Color, Urine, POC Yellow Clarity, ur, POC Clear Clear Glucose, ur, POC Negative Negative mg/dL Bilirubin, ur, POC Negative Negative, Small, Moderate, Large Ketones, ur, POC Negative Negative Specific [place], POC 1.015 1.005 - 1.030 Blood, ur, POC Negative Negative pH, ur, POC 6.5 5.0 - 8.0 Protein, ur, POC Negative Negative Urobilinogen, urine, POC 0.2 0.2 - 1.0 mg/dL Nitrite, ur, POC Negative Negative Leukocytes, ur, POC Negative Negative Lot Number [id number] Urine 12/21/2020 6:37 PM CDT Margarita Phillips WEB USER EXPERIENCE STRATEGIST POINT OF CARE TEST ORDERA BLES Final Result documented in this encounter Visit Diagnoses Diagnosis Marginal insertion of umbilical cord affecting management of mother in second trimester documented in this encounter Admitting Diagnoses [...] 1,000 mg 1,000 mg, oral, Once, On Sun12/21/20 at 1815, For 1 dose Given 12/21/2020 5:42 PM CDT 1,000 mg documented in this encounter Active and Recently Administered Medications Times are shown in CDT. Scheduled Medication Order 12/19/2020 12/20/2020 12/21/2020 acetaminophen (TYLENOL) tablet 1,000 mg (COMPLETED) 1,000 mg, oral, Once, On Sun12/21/20 at 1815, For 1 dose 1742 (Given - Provid er: Shelley Brand RN) documented in this encounter Orders Medications Ordered That Omer ht Not Have Been Administered Count Last Ordered Date First Ordered Date acetaminophen (TYLENOL) tablet 1,000 mg 1 1 Nursing Count Last Ordered Date First Orde red Date VITAL SIGNS 1 12/21/2020 documented in this encounter Care Teams Emergency Management Coordinator Relationship Specialty [place] [address] [place] [address] PCP - General 07/04/19 [place] [address] [address] [place] [address] 11/16/18 Ernie Shaw MD [address] [facility] [address] [place] [address] Health Coach Obstetrics and Gynecology 06/10/20 documented as of this encounter
--- OUTSIDE RECORDS SUMMARY | 2024-02-24 20:02 | XMS_ITS | Encounter Summary ---
Author Organization [facility] [employer] of [facility] Address [address] [place] [address] Phone Care Team Providers Care Corporate Trust Officer Name Role Phone Huseyin Dangelo MD Unavailable [phone] Brian Mon MD Primary Care Provider + Ernie Shaw MD Unavailable [phone] Encounter Details Date Type Department Care Team (Late st Contact Info) Description 01/07/2021 Telephone [facility] Maternal- Medicine [facility] [address] [facility] [address] [place] [address] Kristin Sorto MD [address] [facility] [address] [place] [address] Social History Tobacco Use Types [...] and Family Not on file 01/01/2021 Attends Confucianism Services Not on file 01/01 Active Member [...] Telephone Encounter - Kristin Sorto MD - 01/07/2021 1:06 PM AFTER SCHOOL COUNSELOR Called and spoke with Carito. She wants to review her delivery course so we will plan to scheduleher follow up with me next week. For now we will keep the date/time as scheduled. Will arrange for Carito to have meeting with Neonatology as well- if possible this will be a joint meeting. R SCHOOL COUNSELOR documented in this encounter Plan of Treatment Not on file documented as of this encounter Visit Diagnoses Not on filedocumented in this encounter Care Teams Corporate Trust Officer Relationship Specialty [place] [address] [place] [address] PCP - General 07/04/19 [place] [address] [address] [place] [address] 11/16/18 Ernie Shaw MD [address] [place] [address] [address] [place] [address] Dough Brake Machine Operator Obstetrics and Gynecology 06/10/20 documented as of this encounter
--- OUTSIDE RECORDS SUMMARY | 2024-02-24 20:02 | XMS_ITS | Encounter Summary ---
Author Organization [facility] Healthcare Address [address] [place] [address] Care Team Providers Care Pipe Foreman Name Role Phone Huseyin Dangelo MD Unavailable [phone] Brian Mon MD Primary Care Provider + Ernie Shaw MD Unavailable [phone] Reason for Visit * Reason Onset Date Comments Follow-up 01/05/2021 Encounter Details Date Type Department Care Team (Late st Contact Info) Description 01/05/2021 Nurse Triage [address] [address] Saúl Lo, PRO Social History Tobacco Use [...] and Family Not on file 01/01/2021 Attends Rastafari Services Not on file 01/01 Active Member [...] in a fci (including now)? No 01/01/2021 Comments No Sex [...] Encounter - Saúl Lo RN - 01/05/2021 9:50 AM CST Pt called stating that she delivered 6 days ago. States last night she started sweating profusely. Today she woke up feeling a little crappy and took her temperature. States her temp was 100.2 not long ago. Face feels really warm and cheeks are red. Took tylenol and ibuprofen at that time. Statesshe thinks that maybe the pain medicine is upsetting her stomach. Denies any chills or shakes. Babyin the NICU so she has been pumping well with no issues so far. Milk came in on day 2. No red areas, streaks or lumps in either breast. Says that her incision site looks great . Denies any red areas, oozing or odor from incision. Pt states her breast are filling so she thinks she needs to pump. Informed to go ahead and pump and take temperature again if she starts to feel warm/hot or getting chills or shakes. Verbalizes understanding and states ok. Reason for Disposition ? ? Fever < 100.4 F (38.0 C) Protocols used: - [id number]-[id number]-UP ING CLERK documented in this encounter Plan of Treatment Not on file documented as of this encounter Visit Diagnoses Not on filedocumented in this encounter Care Teams Pipe Foreman Relationship Specialty [place] [address] [facility] [place] [address] PCP - General 07/04/19 [place] [address] [address] [facility] [place] [address] 11/16/18 Ernie Shaw MD [address] [place] [address] [address] [facility] [place] [address] Sales Warehouse Driver Obstetrics and Gynecology 06/10/20 documented as of this encounter
--- OUTSIDE RECORDS SUMMARY | 2024-02-24 20:02 | XMS_ITS | Encounter Summary ---
Author Organization [facility] [employer] [facility] Address [address] [place] [address] Phone Care Team Providers Care Livestock Yard Attendant Name Role Phone Huseyin Dangelo MD Unavailable [phone] Brian Mon MD Primary Care Provider + Ernie Shaw MD Unavailable [phone] Encounter Details Date Type Department Care Team (Late st Contact Info) Description 12/27/2020 Telephone [facility] Obstetrics and Gynecology [address] [place] [address] Shanell Hodge Social History Tobacco Use [...] Encounter - Fariba Chin RN - 12/27/2020 5:18 PM CDT Thank you Shanell. * Telephone Encounter - Shanell Ribeiro - 12/27/2020 3:58 PM CDT Patient scheduled for 2 week and 6 week pop/par appts * Telephone Encounter - Shanell Ribeiro - 12/27/2020 2:38 PM CDT Called patient left voicemail for patient to call * Telephone Encounter - Shanell Ribeiro - 12/27/2020 2:38 PM CDT ----- Message from Fariba Chin RN sent at 12/27/2020 2:27 PM CDT ----- Regarding: visits Hi Team, Could one of you please reach out to Carito and schedule her visits, POP at 2 weeks and PAR at 6 weeks. Thank you, Fariba documented in this encounter Plan of Treatment Not on file documented as of this encounter Visit Diagnoses Not on filedocumented in this encounter Care Teams Livestock Yard Attendant Relationship Specialty [place] [address] [address] [address] PCP - General 07/04/19 [place] [address] [address] [address] 11/16/18 Ernie Shaw MD [address] [facility] [address] [place] [address] Rn Cardiovascular Obstetrics and Gynecology 06/10/20 documented as of this encounter
--- OUTSIDE RECORDS SUMMARY | 2024-02-24 20:03 | XMS_ITS | Encounter Summary ---
Author Organization [facility] Healthcare Address [address] [place] [address] Care Team Providers Care Industrial Gas Servicer Supervisor Name Role Phone Huseyin Dangelo MD Unavailable [phone] Brian Mon MD Primary Care Provider + Ernie Shaw MD Unavailable [phone] Encounter Details Date Type Department Care Team (Late st Contact Info) Description 12/01/2020 Telephone [facility] [address] [place] [address] Margarita Olea MD [address] [facility] [address] [phone] [place] [address] Social History Tobacco Use Types Packs/Day Years Used Date Smoking Tobacco: Former Cigarettes Q uit: 12/28/2018 Smokeless Tobacco: Never Alcohol Use Standard Drinks/Week Comments Yes 0 (1 standard drink = 0.6 oz pur e alcohol) occasionally AUDIT-C Answer Date Recorded Q1: How often do you have a drink containing alc ohol? Never 11/29/2020 Average Number of Drinks Not on file 021 Q3: How often do you have si x or more drinks on one occasion? Never 11/29/2020 PHQ-2 Answer Date Recorded PHQ-2 Total Score [...] Telephone Encounter - Margarita Olea MD - 12/01/2020 8:56 AM CDT Attempted to reach patient by phone. VM left. COH7 RN phone number provided. Margarita Olea MD Maternal- Medicine Fellow Department of Obstetrics and Gynecology Pager: [phone] documented in this encounter Plan of Treatment Not on file documented as of this encounter Visit Diagnoses Not on filedocumented in this encounter Care Teams Industrial Gas Servicer Supervisor Relationship Specialty [place] [address] [address] [facility] [address] PCP - General 07/04/19 [place] [address] [address] [place] [address] 11/16/18 Ernie Shaw MD [address] [place] [address] [address] [place] [address] Public Health Educator Obstetrics and Gynecology 06/10/20 documented as of this encounter
--- OUTSIDE RECORDS SUMMARY | 2024-02-24 20:03 | XMS_ITS | Encounter Summary ---
Author Organization [facility] [employer] of [facility] Address [address] [place] [address] Phone Care Team Providers Care Cut Out Stitcher Name Role Phone Huseyin Dangelo MD Unavailable [phone] Brian Mon MD Primary Care Provider + Ernie Shaw MD Unavailable [phone] Encounter Details Date Type Department Care Team (Late st Contact Info) Description 12/06/2020 Telephone [facility] Maternal- Medicine [address] [facility] Health 7th Floor [address] [place] [address] Margarita Olea MD [address] [phone] [place] [address] Social History Tobacco Use Types [...] Telephone Encounter - Margarita Olea MD - 12/06/2020 2:35 PM CDT Spoke to patient regarding most recent CBC Lab Results Component Value Date WBC 11.8 (H) 12/06/2020 HGB 10.1 (L) 12/06/2020 HCT 31.6 (L) 12/06/2020 MCV 87.1 12/06/2020 LABPLAT 233 12/06/2020 Reviewed that leukocytosis in is common. Further, was recently diagnosed with a sinusitisand is completing a course of azithromycin, which may contribute to this leukocytosis. In the absence of overt infectious symptoms, would recommend continued monitoring at home. Reviewed that the full effects from IV iron infusion may not be seen until 3-4 weeks post infusion. All questions answered. Margarita Olea MD Maternal- Medicine Fellow Department of Obstetrics and Gynecology Pager: [phone] documented in this encounter Plan of Treatment Not on file documented as of this encounter Visit Diagnoses Not on filedocumented in this encounter Care Teams Cut Out Stitcher Relationship Specialty [place] [address] [address] [place] [address] PCP - General 07/04/19 [place] [address] [address] [facility] [place] [address] 11/16/18 Ernie Shaw MD [address] [place] [address] [address] [place] [address] Sales Representative Adding Machines Obstetrics and Gynecology 06/10/20 documented as of this encounter
--- OUTSIDE RECORDS SUMMARY | 2024-02-24 20:03 | XMS_ITS | Encounter Summary ---
Author Organization [facility] Healthcare Address [address] [place] [address] Care Team Providers Care Candy Spreader Helper Name Role Phone Huseyin Dangelo MD Unavailable [phone] Brian Mon MD Primary Care Provider + Ernie Shaw MD Unavailable Reason for Visit * Reason Onset Date Comments Problem 12/17/2020 pelvic pressur e, back sore, feels hiccups from fetus Encounter Details Date Type Department Care Team (Late st Contact Info) Description 12/17/2020 Nurse Triage [address] [address] Remedios Middleton, PRO Social History Tobacco Use Types Packs/Day [...] Telephone Encounter - Remedios Middleton RN - 12/17/2020 8:24 PM CDT Patient calls stating that she is feeling more hiccups from fetus, she has pelvic pressure, and some back pain/soreness. She denies contractions, VB or LOF. She reports good +FM. Patient states she was on google and was worried about baby having too many hiccups. Patient educated about common discomforts of . Patient told to use warm shower and heat packs. Pt reports that she just got a heat pack. Pt told to come to be seen if any VB, sharp pain, DFM, or LOF occurs. Pt told that she can call back if she has anymore questions. Patient verbalized understanding. Remedios Middleton RN 12/17/2020 documented in this encounter Plan of Treatment Not on file documented as of this encounter Visit Diagnoses Not on filedocumented in this encounter Care Teams Candy Spreader Helper Relationship Specialty [place] [address] [address] [place] [address] PCP - General 07/04/19 [place] [address] [address] [place] [address] 11/16/18 Ernie Shaw MD [address] [place] [address] [address] [place] [address] Dude Ranch Manager Obstetrics and Gynecology 06/10/20 documented as of this encounter
--- OUTSIDE RECORDS SUMMARY | 2024-02-24 20:03 | XMS_ITS | Encounter Summary ---
Author Organization [facility] Address [address] [place] [address] Phone Care Team Providers Care Manager Route Name Role Phone Huseyin Dangelo MD Unavailable [phone] Brian Mon MD Primary Care Provider + Ernie Shaw MD Unavailable [phone] Reason for Referral * (Routine) - Closed Specialty Diagnoses / Procedures Referred By Jud freeman Referred To Contact Diagnoses Antepartum variable deceleration Procedures nonstress test - Crystal Murray MD [address] [facility] [phone] [place] [address] Phone: tel: fax: [facility] (All Locations) Referral ID Status Reason Start Date Expiration Date Visits Re quested Visits Authorized [id number] Closed 12/10/2020 01/09/2022 1 1 * Diagnostic Imaging (Routine) - Closed Specialty Diagnoses / Procedures Referred By Jud freeman Referred To Contact Diagnoses Antepartum variable deceleration Procedures US Ob Limited Crystal Murray MD [address] [facility] [phone] [place] [address] Phone: tel: fax: [facility] (All Locations) Referral ID Status Reason Start Date Expiration Date Visits Re quested Visits Authorized [id number] Closed 12/10/2020 01/09/2022 1 1 Reason for Visit * Reason Comments NST/BPP Visit Encounter Details Date Type Department Care Team (Latest Contact Info) Description 12/10/2020 9:15 AM CDT Clinical Support [facility] Obstetrics and Gynecology [facility] [address] [place] [address] Antepartum variable deceleration (Primary Dx); Lupus (CMS/HCC) (HCC) Social History [...] Date/Time Associated Diagnosis Comments NONSTRESS TEST Routine 12/10/2020 Antepartum variable deceleration documented in this encounter Results * US Ob Limited (12/10/2020 10:12 AM CDT) Fetus# Fetus1 VIEWPOINT Placenta Details anterior, Previa-yes VIEWPOINT Presentation Breech VIEWPOINT Anatomical Region Laterality Modality Abdomen N/A Ultrasound 12/10/2020 10:1 2 AM CDT us Crystal Joy Terri MD IMG OB US PROCEDURES F inal Result * nonstress test - (12/10/2020) Crystal Murray MD OB GYNE ORDERABLES Fin al Result documented in this encounter Visit Diagnoses Diagnosis Antepartum variable deceleration- Primary Lupus Systemic lupus erythematosus documented in this encounter Care Teams Manager Route Relationship Specialty [place] [address] [address] [place] [id number] [place] [address] PCP - General 07/04/19 [place] [address] [address] [facility] [place] [address] 11/16/18 Ernie Shaw MD [address] [place] [address] [address] [place] [address] Continuous Process Coffee Roaster Obstetrics and Gynecology 06/10/20 documented as of this encounter
--- OUTSIDE RECORDS SUMMARY | 2024-02-24 20:03 | XMS_ITS | Encounter Summary ---
Author Organization [facility] Healthcare Address [address] [place] [address] Care Team Providers Care Catalog Librarian Name Role Phone Huseyin Dangelo MD Unavailable [phone] Brian Mon MD Primary Care Provider + Ernie Shaw MD Unavailable [phone] Encounter Details Date Type Department Care Team (Late st Contact Info) Description 12/06/2020 12:30 PM CDT Lab [facility] [address] [place] [phone] Iris Bird MD [address] [phone] [place] [address] Supervision of high-risk , unspecified trimester Discharge Disposition: Discharge to home or [...] Procedure Name Priority Date/Time Associated Diagnosis Comments HIV 1/2 ANTIBODY PLUS P24 ANTIGEN Routine 12/06/2020 12:37 PM CDT Supervision of high-risk , unspecified trimester RPR Routine 12/06/2020 12:37 PM CDT Supervision of high-risk , unspecified trimester CBC WITHOUT DIFFERENTIAL Routine 12/06/2020 12:37 PM CDT Supervision of high-risk , unspecified trimester documented in this encounter Results * (ABNORMAL) CBC without differential (12/06/2020 12:37 PM CDT) WBC 11.8(H) 3.8 - 9.9 K/cumm [facility] Hgb 10.1(L) 11.9 - 15.5 g/dL [facility] Hct 31.6(L) 35.6 - 45.5 % [facility] Plt 233 150 - 400 K/cumm [facility] MPV 10.0 9.1 - 12.3 fL [facility] RBC 3.63(L) 3.90 - 5.20 M/cumm [facility] MCV 87.1 81.3 - 96.4 fL [facility] MCH 27.8 27.1 - 33.3 pg [facility] MCHC 32.0(L) 32.3 - 35.7 g/dL [facility] RDW CV 17.6(H) 11.1 - 14.9 % [facility] RDW SD 52.1(H) 35.7 - 48.1 fL [facility] NRBC abs 0.00 0.00 - 0.01 K/cumm [facility] Blood 12/06/2020 12:3 7 PM CDT 12/06/2020 12:52 PM CDT Iris Bird MD LAB BLOOD ORDERABLES Final Result Performing Organization Address [facility] [place] [address] * RPR (12/06/2020 12:37 PM CDT) RPR Nonreactive Nonreactive [facility] Blood 12/06/2020 12:3 7 PM CDT 12/06/2020 12:52 PM CDT Iris Bird MD LAB MICROBIOLOGY - GENERAL ORDERABLES Final Result Performing Organization Address [facility] [place] [address] * HIV 1/2 Antibody plus p24 Antigen (12/06/2020 12:37 PM CDT) HIV 1/2 ab + p24 ag Nonreactive Nonreactive [facility] Comment: Nonreactive for HIV-1 antigen and HIV-1/HIV-2 antibodies. No laboratory evidence of HIV infection. If acute HIV infection is suspected, consider testing for HIV-1 RNA. Blood 12/06/2020 12:3 7 PM CDT 12/06/2020 12:52 PM CDT Iris Bird MD LAB MICROBIOLOGY - GENERAL ORDERABLES Final Result Performing Organization Address [facility] [place] [address] documented in this encounter Visit Diagnoses Diagnosis Supervision of high-risk , unspecified trimester documented in this encounter Care Teams Catalog Librarian Relationship Specialty [place] [address] [address] [place] [address] PCP - General 07/04/19 [place] [address] [address] [place] [address] 11/16/18 Ernie Shaw MD [address] [place] [address] [address] [place] [address] Mill Supervisor Obstetrics and Gynecology 06/10/20 documented as of this encounter
--- OUTSIDE RECORDS SUMMARY | 2024-02-24 20:03 | XMS_ITS | Encounter Summary ---
Author Organization [facility] Healthcare Address [address] [place] [address] Care Team Providers Care Area Field Person Name Role Phone Huseyin Dangelo MD Unavailable [phone] Brian Mon MD Primary Care Provider + Ernie Shaw MD Unavailable [phone] Reason for Visit * Reason Comments Contractions Encounter Details Date Type Department Care Team (Latest Contact Info) Description 12/13/2020 7:22 PM CDT - 12/13/2020 10:55 PM CDT Hospital Encounter [address] [phone] Crystal Murray MD [address] [facility] [phone] [place] [address] Discharge Disposition: Discharge to home or self [...] Sign Reading Time Taken Comments Blood Pressure 131/80 12/13/2020 7:40 PM CDT Pulse 93 12/13/2020 7:40 PM CDT Temperature 36.8 ??C (98.2 ??F) 12/13/2020 7:40 PM CD T Respiratory Rate 20 12/13/2020 7:40 PM CDT Oxygen Saturation 98% 12/13/2020 7:40 PM CDT Inhaled Oxygen Concentration - - Weight 86.8 kg (191 lb 4.8 oz) 12/13/2020 7:40 P M CDT Height 160 cm (5' 3 ) 12/13/2020 7:40 PM CDT Body Mass Index 33.89 12/13/2020 7:40 PM CDT documented in this encounter Discharge Diagnoses Diagnosis False labor before 37 completed weeks of gestation, third trimester - FALSE LABOR BEFORE 37 COMPLETED WEEKS OF GESTATION, THIRD TRIMESTER Complete placenta previa nos or without hemorrhage, third trimester - COMPLETE PLACENTA PREVIA NOS OR WITHOUT HEMORRHAGE, THIRD TRIMESTER Other malformation of placenta, third trimester - OTHER MALFORMATION OF PLACENTA, THIRD TRIMESTER Other diseases of the blood and blood-forming organs and certain disorders involving the immune mechanism complicating , third trimester - OTHER DISEASES OF THE BLOOD AND BLOOD-FORMING ORGANS AND CERTAIN DISORDERS INVOLVING THE IMMUNE MECH 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) - GLOMERULAR DISEASE IN SYSTEMIC LUPUS ERYTHEMATOSUS Diseases of the respiratory system complicating , third trimester - DISEASES OF THE RESPIRATORY SYSTEM COMPLICATING , THIRD TRIMESTER Unspecified asthma, uncomplicated - UNSPECIFIED ASTHMA, UNCOMPLICATED Other mental disorders complicating , third trimester - OTHER MENTAL DISORDERS COMPLICATING , THIRD TRIMESTER Generalized anxiety disorder - GENERALIZED ANXIETY DISORDER Depression, unspecified - DEPRESSION, UNSPECIFIED Anemia complicating , third trimester - ANEMIA COMPLICATING , THIRD TRIMESTER Anemia, unspecified - ANEMIA, UNSPECIFIED 33 weeks gestation of - 33 WEEKS GESTATION OF residential (current) use of aspirin - LEVEL VIAL GRINDER (CURRENT) USE OF ASPIRIN Other long-term (current) drug therapy - OTHER LEVEL VIAL GRINDER (CURRENT) DRUG THERAPY Allergy status to penicillin - ALLERGY STATUS TO PENICILLIN Allergy status to other antibiotic agents - ALLERGY STATUS TO OTHER ANTIBIOTIC AGENTS Allergy status to other drugs, medicaments and biological substances - ALLERGY STATUS TO OTHER DRUGS, MEDICAMENTS AND BIOLOGICAL SUBSTANCES Personal history of nicotine dependence - PERSONAL HISTORY OF NICOTINE DEPENDENCE documented in this encounter Discharge Instructions * Discharge Instr - Activity* Alise Griffiths RN - 12/13/2020 10:44 PM CDT Activity as tolerated * Discharge Instr - Diet* Alise Griffiths RN - 12/13/2020 10:44 PM CDT Eat well balanced diet and drink 8-10 glasses of water each day * Attachments The following attachments cannot be sent through Care Everywhere. * Placenta Previa (AfterCare(R) Instructions(ER/ED)) (Barbadian) * at 31 to 34 Weeks (AfterCare(R) Instructions(ER/ED)) (Barbadian) documented in this encounter Medications at Time of Discharge al & mag hydroxide with simethicone-diphenhy dramine-lidocaine (MAGIC MOUTHWASH) suspension 1-1-1 Swish and swallow 10 mL every 4 (four) hours as needed (oral ulcers) 300 mL 12/09/2020 3 aspirin 81 mg enteric coated tablet Take 81 mg by mouth daily 1 azithromycin (ZITHROMAX) 250 mg tablet 12/04/2020 1 ferrous gluconate (ferrous gluconate) 324 mg [...] MOUTH DAILY 60 tablet 10/23/2020 1 vit no.[id number]-htqc-sauol (Classic ) 28 mg iron- 800 mcg [...] documented in this encounter H&P Notes * Maura Moreno MD - 12/13/2020 8:19 PM CDT [facility] Chief Complaint: contractions Estimated Date of Delivery: 01/27/21 Provider: RENETTA HPI: Carito Madison is a 30 y.o. female at 33w4d gestation, dated by L=1st trimester ultrasound who [facility] for contractions since 1830, painful and frequent. She denies any vaginal bleeding, leakage of fluid, dysuria, or vaginal discharge and reports positive movement. Her is complicated by complete previa, poly, margina cord insert, lupus, generalized anxiety disorder OB History Para Term AB Living 3 0 0 0 2 0 SAB TAB Ectopic Multiple Live Births 2 0 0 0 0 # Outcome Date GA Lbr Rojas/2nd Weight Sex Delivery Anes PTL Lv 3 Current 2 2019 16w0d 1 2017 Past Medical [...] Chronic hypertension: No Diabetes: No Asthma: No Social history: Past Surgical History: Procedure Laterality [...] Father of baby involved: Yes Support System: Supported by partner Safe at home: Yes Family History: family [...] MEDICATIONS : al & mag hydroxide with pyyosyortqo-qkyqpqppewjyqnd-pqhsqaidp (MAGIC MOUTHWASH) suspension 1-1-1 aspirin 81 mg enteric coated tablet azithromycin (ZITHROMAX) 250 mg tablet ferrous gluconate (ferrous gluconate) 324 mg (37.5 mg of elemental iron) tablet hydrOXYchloroQUINE (PLAQUENIL) 200 mg tablet omeprazole (PriLOSEC) 20 mg capsule ondansetron ODT (ZOFRAN-ODT) 8 mg disintegrating tablet polyethylene glycol (MIRALAX) 17 gram/dose powder predniSONE (DELTASONE) 5 mg tablet vit no.000-vlwg-jzgvd (Classic ) 28 mg iron- 800 mcg tablet sertraline (ZOLOFT) 25 mg tablet valACYclovir (VALTREX) 500 mg tablet Review of Systems: Negative except per HPI Vitals: Temp: [36.8 ??C (98.2 ??F)] 36.8 ??C (98.2 ??F) Pulse: [93-110] 93 Resp: [20] 20 BP: (120-131)/(80-84) 131/80 Physical Exam: General: NAD, mood appropriate Cardiovascular: deferred Pulmonary: deferred Abdomen: Gravid, non-tender Extremities: Warm and well perfused Speculum Exam: physiologic discharge Cervix: visually closed Wet Prep: normal Monitoring: Baseline: 120 bpm, Variability: Moderate, Accelerations: Present and Decelerations: None Uterine Activity: Irregular contractions Interpretation: Reactive Ultrasound: Not indicated today Labs: Lab Results Component Value Date ABORH A Positive 11/29/2020 IDCOOMB Negative 11/29/2020 [id number] Nonreactive 12/06/2020 LABRPR Nonreactive 12/06/2020 Assessment and Plan Carito Madison is a 30 y.o. female at 33w4d who presented with contractions # contractions - contractions Q5-20, that ceased after IV hydration - LR bolus and D5LR - SSE with physiologic discharge, no blood - Cevix visually closed - Urine culture sent #FWB -Reactive NST -Pt endorses movement Pt to be discharged home to self-care with strict return precautions. Plan discussed with Dr. Lazo. Jacqui Mcrae NP 12/13/20 Relinquished care to Alexei Jaimes at 2200 MFM Fellow Attestation I have discussed Carito Madison with the INCOME TAX ANALYST, on 12/14/2020. I have reviewed the treatment plan and recommendations. I agree with the findings and the plan of care as documented in the note. Silas Lazo MD I have reviewed and agree with the documentation by the resident/INCOME TAX ANALYST. I did not see the patient. Maura Moreno MD documented in this encounter Procedure Notes * Avelino Triplett MD - 12/13/2020 10:42 PM CDT NST Note 30 y.o. at 33w4d FHR Baseline: 120 Variability: moderate Accelerations: present Decelerations: absent Contractions: infrequent Reactive: Yes I have reviewed the NST. Avelino Triplett MD * Rachelle Jaimes NP - 12/13/2020 10:32 PM CDT Procedures NST FHR Baseline: 120 Variability: moderate Accelerations: present Decelerations: absent Contractions: irregular Reactive: Yes I have reviewed the NST with Dr. Lazo and was instructed to take the patient off the monitor. KATHRIN Dietrich 12/13/20 Cosigned by Avelino Triplett MD at 12/13/2020 10:42 PM CDT documented in this encounter Nursing Notes * Alise Griffiths RN - 12/13/2020 10:55 PM CDT Pt seen in [facility] for contractions. Pt seen by provider and given ivf bolus with contraction resolution. D/c to home with previa precautions. Pt verbalized understanding of information given. Dc to homewith spouse documented in this encounter Plan of Treatment Not on file documented as of this encounter Procedures Procedure Name Priority Date/Time Associated Diagnosis Comments URINE CULTURE Routine 12/13/2020 8:38 PM CDT POCT URINALYSIS DIPSTICK Routine 12/13/2020 8:23 PM CDT documented in this encounter Results * Urine culture Urine, clean voided (12/13/2020 8:38 PM CDT) Report Final Report: Less than 100,000 colonies/mL (clinically insignificant growth based on current clinical standards) [facility] Organism (CLINICALLY INSIGNIFICANT GROWTH [facility] Urine, clean voided 12/13/2020 8:38 PM CDT 12/13/2020 11:21 PM CDT Narrative [facility] - 12/15/2020 8:06 AM CDT Indications for Culture:-> patient Testing performed by [facility] ([phone]) Jacqui Mcrae NP LAB MICROBIOLOGY - GENERAL ORDERABLES Final Result [facility] One [facility] Department [place] [address] * (ABNORMAL) POCT urinalysis dipstick (12/13/2020 8:23 PM CDT) Color, Urine, POC [place] Clarity, ur, POC Clear Clear Glucose, ur, POC Negative Negative mg/dL Bilirubin, ur, POC Negative Negative, Small, Moderate, Large Ketones, ur, POC Moderate(A) Negative Specific [place], POC 1.015 1.005 - 1.030 Blood, ur, POC Negative Negative pH, ur, POC 7.0 5.0 - 8.0 Protein, ur, POC Negative Negative Urobilinogen, urine, POC 0.2 0.2 - 1.0 mg/dL Nitrite, ur, POC Negative Negative Leukocytes, ur, POC Negative Negative Lot Number [id number] Urine 12/13/2020 8:23 PM CDT Jacqui Mcrae INCOME TAX ANALYST POINT OF CARE TEST ORDERABL ES Final Result documented in this encounter Visit Diagnoses Diagnosis Generalized anxiety disorder Marginal insertion of umbilical cord affecting management of mother in second trimester Supervision of high-risk , unspecified trimester documented [...] MAR Action Action Date Dose Rate Site cyclobenzaprine (FLEXERIL) tablet 10 mg 10 mg, oral, Once, On Sun12/13/20 at 2100, For 1 dose Given 12/13/2020 8:34 PM CDT 5 mg dextrose 5% and Lactated Ringer's infusion 250 mL/hr, intravenous, Continuous, Starting on Sun12/13/20 at 2130 Lactated Ringer's (LR) bolus 1,000 mL 1,000 mL, intravenous, Once, On Sun12/13/20 at 2030, For 1 dose New Bag 12/13/2020 9:45 PM CDT 1,000 mL sodium chloride 0.9% flush 0.5-20 mL 0.5-20 mL, intra-catheter, Every 8 hours scheduled, First dose on Sun12/13/20 at 2200, L&D Pre-Delivery, Flush volume based on line type and size. sodium chloride 0.9% flush 0.5-20 mL 0.5-20 mL, intra-catheter, As needed, line care, Starting on Sun12/13/20 at 1950, L&D Pre-Delivery, Flush volume based on line type and size. Flush before and after each use. documented in this encounter Active and Recently Administered Medications Times are shown in CDT. Scheduled Medication Order 12/11/2020 12/12/2020 12/13/2020 acetaminophen (TYLENOL) tablet 1,000 mg 1,000 mg, oral, Once, On Sun12/13/20 at 2030, For 1 dose 2021 (Return to [facility] - Provider: Alise Griffiths RN - Comment: pt took tylenol prior to coming to [facility] at 1800) cyclobenzaprine (FLEXERIL) tablet 10 mg (COMPLETED) 10 mg, oral, Once, On Sun12/13/20 at 2100, For 1 dose 2033 (Given - Provid er: Alise Griffiths RN - Comment: pt refused full dose) Lactated Ringer's (LR) bolus 1,000 mL (COMPLETED) 1,000 mL, intravenous, Once, On Sun12/13/20 at 2030, For 1 dose 2144 (New Bag - Prov ider: Alise Griffiths RN - Comment: no iv access)2229 (Stopped - Provider: Alise Griffiths RN) sodium chloride 0.9% flush 0.5-20 mL 0.5-20 mL, intra-catheter, Every 8 hours scheduled, First dose on Sun12/13/20 at 2200, L&D Pre-Delivery, Flush volume based on line type and size. 2221 (Not Given - Pr ovider: Alise Griffiths RN - Reason: IV Infusing) Continuous Medication Order 12/11/2020 12/12/2020 12/13/2020 dextrose 5% and Lactated Ringer's infusion 250 mL/hr, intravenous, Continuous, Starting on Sun12/13/20 at 2130 2220 (Due)2222 (Not Given - Provider: Alise Griffiths RN - Reason: IV Infusing) PRN Medication Order 12/11/2020 12/12/2020 12/13/2020 sodium chloride 0.9% flush 0.5-20 mL 0.5-20 mL, intra-catheter, As needed, line care, Starting on Sun12/13/20 at 1950, L&D Pre-Delivery, Flush volume based on line type and size. Flush before and after each use. documented in this encounter Orders Medications Ordered That Omer ht Not Have Been Administered Count Last Ordered Date First Ordered Date acetaminophen (TYLENOL) tablet 1,000 mg 1 1 dextrose 5% and Lactated Ringer's infusion 1 12/13/2020 sodium chloride 0.9% flush 0.5-20 mL 2 11/26 Nursing Count Last Ordered Date First Orde red Date VITAL SIGNS 1 12/13/2020 documented in this encounter Care Teams Area Field Person Relationship Specialty [place] [address] [address] [place] [address] PCP - General 07/04/19 [place] [address] [address] [place] [address] 11/16/18 Ernie Shaw MD [address] [place] [address] [address] [place] [address] Ball Warper Tender Obstetrics and Gynecology 06/10/20 documented as of this encounter
--- OUTSIDE RECORDS SUMMARY | 2024-02-24 20:03 | XMS_ITS | Encounter Summary ---
Author Organization [facility] Healthcare Address [address] [place] [address] Care Team Providers Care Science Professor Name Role Phone Huseyin Dangelo MD Unavailable [phone] Brian Mon MD Primary Care Provider + Ernie Shaw MD Unavailable [phone] Reason for Visit * Reason Onset Date Comments Med Refill 12/18/2020 Encounter Details Date Type Department Care Team (Late st Contact Info) Description 12/18/2020 Nurse Triage [address] [phone] Remedios Middleton, RN Social History Tobacco Use [...] Telephone Encounter - Remedios Middleton RN - 12/18/2020 12:19 AM CDT Patient asked to speak with MEMORY CARE PROGRAM DIRECTOR. Patient asked if MEMORY CARE PROGRAM DIRECTOR could send flexeril prescription to pharmacy. Rx sent. Remedios Middleton RN 12/18/2020 documented in this encounter Plan of Treatment Not on file documented as of this encounter Visit Diagnoses Not on filedocumented in this encounter Care Teams Science Professor Relationship Specialty [place] [address] [address] [address] PCP - General 07/04/19 [place] [address] [address] [place] [address] 11/16/18 Ernie Shaw MD [address] [facility] [address] [place] [address] Car Shunter Obstetrics and Gynecology 06/10/20 documented as of this encounter
--- OUTSIDE RECORDS SUMMARY | 2024-02-24 20:03 | XMS_ITS | Encounter Summary ---
Author Organization [facility] Address [address] [place] [address] Phone Care Team Providers Care Chassis Inspector Name Role Phone Huseyin Dangelo MD Unavailable [phone] Brian Mon MD Primary Care Provider + Ernie Shaw MD Unavailable [phone] Reason for Visit * Reason Comments High Risk Gestation Encounter Details Date Type Department Care Team (Late st Contact Info) Description 12/20/2020 8:45 AM CDT [facility] [address] [facility] 7th [address] [place] [address] [place] [address] [place] [address] [address] [place] [address] Polyhydramnios in third trimester, not applicable or unspecified fetus (Primary Dx); Lupus (CMS/HCC) (HCC); Placenta previa ; Anemia during in third trimester; Supervision of high-risk , unspecified trimester; Generalized anxiety disorder; Marginal insertion of umbilical cord affecting management of mother in second trimester; Adrenal insufficiency (CMS/HCC) (HCC) Social History Tobacco [...] Sign Reading Time Taken Comments Blood Pressure 104/69 12/20/2020 8:25 AM CDT Pulse 127 12/20/2020 8:25 AM CDT Temperature - - Respiratory Rate - - Oxygen Saturation 97% 12/20/2020 8:25 AM CDT Inhaled Oxygen Concentration - - Weight 87.1 kg (192 lb) 12/20/2020 8:25 AM CDT Height 160 cm (5' 3 ) 12/20/2020 8:25 AM CDT Body Mass Index 34.01 12/20/2020 8:25 AM CDT documented in this encounter Progress Notes * Kristin Sorto MD - 12/20/2020 8:45 AM CDT [facility] Return Visit 12/20/2020 Carito Madison is a 30 y.o. at 34w4d who is here for a return OB visit. Her iscomplicated by lupus and h/o loss. Subjective: She reports general discomfort and some increase in joint stiffness. Recent visit to [facility] for contractions. Objective: BP 104/69 Pulse (!) 127 Ht 160 cm (5' 3 ) Wt 192 lb (87.1 kg) LMP (LMP Unknown) Comment: LMP end of Mar 2020 SpO2 97% BMI 34.01 kg/m?? General: NAD Abdomen: Gravid Ultrasound: 12/20/2020 34w4d transverse presentation, polyhydramnios 10/03 BPP FHR 168 bpm, will add on for NST NSt reactive without contractions, FHT baseline 160 bpm Assessment/Plan: Carito Madison is a 30 y.o. at 34w4d by with a complicated bythe following concerns: Problem List Endocrine and Metabolic Adrenal insufficiency (CMS/HCC) (HCC) Overview Suspected secondary adrenal insufficiency- Current regimen: 7.5 mg daily - Delivery plan (per Dr. Cortes germination testing manager): IV infusion of hydrocortisone 200 mg/24 hours and15 mg/daily of prednisone for the following 48 hours. After that, can decrease the dose to 5 mg daily. Gravid and Supervision of high-risk , unspecified trimester Overview [...] [NR ], GC/CT [negative/negative] [x] Genetic Screening: Clayton low risk 07/09 [x] CBC/Hgb 11.7/35.0/306 [x] [...] Flu Shot (Oct-Jan): declines, previously had Guillian Minot [x] Tdap (27-36wks): 11/23/2020 [x] COVID Vaccine: s/p both doses 3rd Tri Labs: [x] CBC/HIV/RPR: 10.1/31.6/233/ HIV:NR/ RPR: NR [] GBS: [x] COVID testing: set up for 12/27/20 at [facility] [] hibiclens Counselling [x] MOD: Current plan is for [...] LARCS [] Method of feeding: Breast [] Biscuit Factory Worker: [] PP Depression Discussed: Marginal insertion of umbilical cord affecting management of mother in second trimester Overview Marginal cord insertion can be associated with growth restriction. Serial growths- currently AGA Placenta previa Overview Update 11/23/20: [...] GI consult. Dr. Shukla to room to personal financial counselor patient regarding risks of daily bleeding in thesetting of a previa and a dropping H&H. Pt declines admission following extensive counseling. 11/23: Given that she has had 4 bleeds with her previa in the current , I reinforced that we still recommend inpatient hospitalization. Ms. Madison has been counseled on the risk of [...] weekend and has not had recent bleeding. Hematology and Neoplasia Anemia during in third trimester Overview 11/09/20 [facility] POCT Hgb 9.3 - pt reported fatigue and requested iron infusion Further review of Hgb on 10/19/20 [10.3] and 11/16/20 [10.1] Ferritin ordered for 11/23/20 and pt to follow up on 11/23/20 -- Ferritin 10 11/23/2020 Iron infusion completed 11/30/20 hgb 10.6 on 12/13 12/23: Patient advised to restart PO iron as tolerated Mental Health Generalized anxiety disorder Overview Ms bebe reports severe anxiety and near panic in this thus far. This is not a new issuefor her, but it has significantly worsened in . S/p counseling at initial visit Plan: -Prescribed zoloft -psych referral Multi-system (Lupus, Sarcoid...) Lupus (CMS/HCC) (HCC) Overview S/p counseling at initial visit 11/16: CMP, platelets WNL Plan: -Currently taking hydroxychloroquine to 200 mg alternating with 400 mg every other day, prednisone 7.5mg daily -Discussion with rheum in starting azothiaprine - discontinued benlysta after counseling d/t concerns -Serial growths- AGA -Continue testing -81 mg ASA at 12 weeks -BMP q trimester for renal surveillance. -Baseline preElabs, P:C 91 Other Polyhydramnios in third trimester, not applicable or unspecified fetus - Primary Overview Mild polyhydramnios previously noted and counseled; most recently normal diabetic screen normal 10/15: fluid normal 12/06: DVP 9.3, BRI 24.0 12/13/ DVP 5.7 cm BRI 15.6 cm 12/20; BRI 25 cm Patient will continue current testing plan and labor and bleeding precautions. documented in this encounter Plan of Treatment Not on file documented as of this encounter Visit Diagnoses Diagnosis Polyhydramnios in third trimester, not applicable or unspecified fetus- Primary Lupus Systemic lupus erythematosus Placenta previa Anemia during in third trimester Supervision of high-risk , unspecified trimester Generalized anxiety disorder Marginal insertion of umbilical cord affecting management of mother in second trimester Adrenal insufficiency (HCC) Glucocorticoid deficiency documented in this encounter Care Teams Chassis Inspector Relationship Specialty [place] [address] [address] [place] [address] PCP - General 07/04/19 [place] [address] [address] [place] [address] 11/16/18 Ernie Shaw MD [address] [place] [address] [address] [place] [address] Veneer Slicing Machine Operator Obstetrics and Gynecology 06/10/20 documented as of this encounter
--- OUTSIDE RECORDS SUMMARY | 2024-02-24 20:03 | XMS_ITS | Encounter Summary ---
Author Organization [facility] Healthcare Address [address] [place] [address] Care Team Providers Care Military Exchange Wireless Manager Name Role Phone Huseyin Dangelo MD Unavailable [phone] Brian Mon MD Primary Care Provider + Ernie Shaw MD Unavailable [phone] Reason for Visit * Reason Onset Date Comments Incoming Call 12/18/2020 Having he artburn really bad - what can she take for it? Encounter Details Date Type Department Care Team (Late st Contact Info) Description 12/18/2020 Nurse Triage [address] [address] Violette Ludwig RN Social History Tobacco Use Types Packs/Day [...] Telephone Encounter - Violette Ludwig RN - 12/18/2020 7:16 PM CDT 190: Patient called stating she is having bad heartburn and wants to know what she can take for it. Reports she gets heartburn from prednisone and she recently increased the prednisone dose she takes for her lupus. She has had heartburn for a few days. Her next appointment is 12/20/2020. She is taking Omeprazole for ulcer prevention. Explained that she can take TUMS, Maalox, or ouci-qrr-sxjhddf Pepcid. Patient states she will take some Maalox as she has tried the other medications and they do not work well for her. Reason for Disposition ??? [1] Upper abdominal pains AND [2] radiate into chest, with sour taste in mouth Answer Assessment - Initial Assessment Questions 1. LOCATION: Where does it hurt? Upper Abdomen 2. RADIATION: Does the pain shoot anywhere else? (e.g., chest, back, shoulder) No 3. ONSET: When did the pain begin? (e.g., minutes, hours or days ago) A few days ago 4. ONSET: Gradual or sudden onset? Sudden 5. PATTERN Does the pain come and go, or has it been constant since it started? Constant 6. SEVERITY: How bad is the pain? What does it keep you from doing? (e.g., Scale 1-10; mild, moderate, or severe) - MILD (1-3): doesn't interfere with normal activities, abdomen soft and not tender to touch - MODERATE (4-7): interferes with normal activities or awakens from sleep, tender to touch - SEVERE (8-10): excruciating pain, doubled over, unable to do any normal activities Mild to moderate 7. RECURRENT SYMPTOM: Have you ever had this type of stomach pain before? If Yes, ask: When was the last time? and What happened that time? Gets heartburn from prednisone she takes for lupus - just recently increased the dose of her prednisone 8. CAUSE: What do you think is causing the stomach pain? Increased prednisone dose 9. RELIEVING/AGGRAVATING FACTORS: What makes it better or worse? (e.g., antacids, bowel movement,movement) Has tried TUMS and Pepcid 10. OTHER SYMPTOMS: Has there been any vaginal bleeding, fever, vomiting, diarrhea, or urine problems? Denies 11. MANE: What date are you expecting to deliver? 01/27/2021 Protocols used: - ABDOMINAL PAIN LESS THAN 20 WEEKS [id number] documented in this encounter Plan of Treatment Not on file documented as of this encounter Visit Diagnoses Not on filedocumented in this encounter Care Teams Military Exchange Wireless Manager Relationship Specialty [place] [address] [address] [place] [address] PCP - General 07/04/19 [place] [address] [address] [place] [address] 11/16/18 Ernie Shaw MD [address] [place] [address] [address] [place] [address] Shop Superintendent Obstetrics and Gynecology 06/10/20 documented as of this encounter
--- OUTSIDE RECORDS SUMMARY | 2024-02-24 20:03 | XMS_ITS | Encounter Summary ---
Author Organization [facility] Address [address] [place] [address] Phone Care Team Providers Care Livestock Farmworker Name Role Phone Huseyin Dangelo MD Unavailable [phone] Brian Mon MD Primary Care Provider + Ernie Shaw MD Unavailable [phone] Encounter Details Date Type Department Care Team (Late st Contact Info) Description 12/16/2020 1:30 PM CDT Office Visit [facility] Rheumat[facility] 5th [place] [address] [place] [address] Lupus (CMS/HCC) (HCC) (Primary Dx); Supervision of high-risk , unspecified trimester Social [...] Sign Reading Time Taken Comments Blood Pressure 105/68 12/16/2020 1:56 PM CDT Pulse 92 12/16/2020 1:56 PM CDT Temperature 36.8 ??C (98.2 ??F) 12/16/2020 1:56 PM CD T Respiratory Rate - - Oxygen Saturation - - Inhaled Oxygen Concentration - - Weight 86.2 kg (190 lb) 12/16/2020 1:56 PM CDT Height 160 cm (5' 3 ) 12/16/2020 1:56 PM CDT Body Mass Index 33.66 12/16/2020 1:56 PM CDT documented in this encounter Progress Notes * Carolina Delarosa MD - 12/16/2020 1:30 PM CDT PATIENT NAME: Carito Madison : 1990 12/16/2020 HISTORY OF PRESENT ILLNESS: ia a 30 [...] the bed. She had 1 other early first-trimesterabortion. She has a positive BARAK 1:1280 centromere and homogeneous positive. She also has a positive double-stranded DNA, SALES MGR antibody and a low C4 and C3 [...] on steroids for the last 2 years Past medical history is significant for recurrent genital herpes and lupus Family history she has an uncle with a diagnosis of ankylosing spondylitis Personal history occasional marijuana use Interim She is doing well. She is a 34 weeks . She is currently on hydroxychloroquine 200 mg a day ( self reduced from 400 mg a day) and prednisone 7.5 mg a day. She did try azathioprine for 2 days but then developed hives with this and stop. We did of full set of lupus serologies in in November. Her last Benlysta was April 2020. ALLERGIES: Allergies Allergen Reactions ??? Macrobid [Nitrofurantoin [...] Venlafaxine Itching CURRENT MEDICATION: Current Outpatient Medications: ? ? al & mag hydroxide with aksbbuxodfw-iofobmyufpaxbbm-ilzsnoiul (MAGIC MOUTHWASH) suspension 1-1-1, Swish and swallow 10 mL every 4 (four) hours as needed (oral ulcers), Disp: 300 mL, Rfl: 0 ??? aspirin 81 mg enteric coated tablet, Take 81 mg by mouth daily , Disp: , Rfl: ??? azithromycin (ZITHROMAX) 250 mg tablet, , Disp: , Rfl: ??? ferrous gluconate (ferrous gluconate) 324 mg (37.5 mg of elemental iron) tablet, Take 1 tablet (324 mg total) by mouth 3 (three) times a day, Disp: 90 tablet, Rfl: 2 ??? hydrOXYchloroQUINE (PLAQUENIL) 200 mg tablet, Take 2 tablets (400 mg total) by mouth daily, Disp: 60 tablet, Rfl: 5 ??? omeprazole (PriLOSEC) 20 mg capsule, Take 20 mg by mouth daily , Disp: , Rfl: ??? predniSONE (DELTASONE) 5 mg tablet, TAKE 2 TABLETS(10 MG) BY MOUTH DAILY, Disp: 60 tablet, Rfl:0 ??? vit no.079-pvvc-[id number] (Classic ) 28 mg iron- 800 mcg tablet, Take 1 tablet by mouth daily, Disp: , Rfl: ??? sertraline (ZOLOFT) 25 mg tablet, , Disp: , Rfl: ??? ondansetron ODT (ZOFRAN-ODT) 8 mg disintegrating tablet, Dissolve 1 tablet on top of tongue then swallow with saliva every 8 hours as needed for nausea or vomiting (Patient not taking: Reported on 11/30/2020), Disp: , Rfl: ??? polyethylene glycol (MIRALAX) 17 gram/dose powder, Take 17 g by mouth 2 (two) times a day (Patient not taking: Reported on 11/30/2020), Disp: , Rfl: ??? valACYclovir (VALTREX) 500 mg tablet, TAKE 1 TAB BY MOUTH 3 TIMES DAILY FOR 7 DAYS. (Patient not taking: Reported on 11/30/2020), Disp: , Rfl: No current facility-administered medications for this visit. Facility-Administered Medications Ordered in Other Visits: ??? prochlorperazine (COMPAZINE) tablet 10 mg, 10 mg, oral, Once, Wendi Ivey, [place] PHYSICAL EXAM: Vitals BP 105/68 Pulse 92 Temp 36.8 ??C (98.2 ??F) Ht 160 cm (5' 3 ) Wt 86.2 kg (190 lb) LMP (LMP Unknown) BMI 33.66 kg/m?? Physical Exam General examination is unremarkable Per abdomen gravid uterus Skin without rash Joint examination is unremarkable RS is clear to auscultation S1-S2 is regular LABORATORY DATA: Lab Results Component Value Date WBC 9.9 12/13/2020 HGB 10.6 (L) 12/13/2020 HCT 33.5 (L) 12/13/2020 MCV 88.6 12/13/2020 LABPLAT 218 12/13/2020 Lab Results Component Value Date AST 24 12/13/2020 ALT 19 12/13/2020 CREATININE 0.48 (L) 12/13/2020 Lab Results Component Value Date SEDRATE 35 (H) 12/13/2020 Lab Results Component Value Date CRP 7.9 12/13/2020 ASSESSMENT AND PLAN: SLE In conclusion this is a 29-year-old female with a diagnosis of lupus. At this point she is at 34 weeks, and LCS is planned December , due to placenta previa. At this point she is on hydroxychloroquine 200 mg a day, she self reduced as she was having GI symptoms on 400 mg a day. She is on prednisone 7.5 mg a day I would like to get her on Benlysta as soon as possible, at this point she does plan to breast-feed and we decided that we will wait until she flares or start Benlysta 4-6 months . Since she has adrenal is insufficiency she will probably require stress dose steroids around her She is aware about the high risk for preeclampsia, and labor Her recent serologies from November were unremarkable DISPOSITION: The patient will return follow up in 2 months Carolina Delarosa MD documented in this encounter Plan of Treatment Not on file documented as of this encounter Visit Diagnoses Diagnosis Lupus- Primary Systemic lupus erythematosus Supervision of high-risk , unspecified trimester documented in this encounter Care Teams Livestock Farmworker Relationship Specialty [place] [address] [address] [place] [address] PCP - General 07/04/19 [place] [address] [address] [place] [address] 11/16/18 Ernie Shaw MD [address] [place] [address] [address] [place] [address] Dynamic Balancer Obstetrics and Gynecology 06/10/20 documented as of this encounter
--- OUTSIDE RECORDS SUMMARY | 2024-02-24 20:03 | XMS_ITS | Encounter Summary ---
Author Organization [facility] Healthcare Address [address] [place] [address] Care Team Providers Care Laundry Route Driver Name Role Phone Huseyin Dangelo MD Unavailable [phone] Brian Mon MD Primary Care Provider + Ernie Shaw MD Unavailable [phone] Reason for Visit * Reason Onset Date Comments Problem 12/17/2020 Pain worse, f eels like something bad is going to happen , wants to be admitted Encounter Details Date Type Department Care Team (Late st Contact Info) Description 12/17/2020 Nurse Triage [address] [address] Remedios Middleton, PRO Social History Tobacco Use [...] Encounter - Remedios Middleton RN - 12/17/2020 9:51 PM CDT Patient states her pain is worse. Tylenol and heat have not helped. She states I feel like something bad is going to happen . Denies VB or LOF. +FM. Patient told to come to [facility] for evaluation. Patient states that she was told she can be admitted whenever due to her previa. She states she thinks she might want to be admitted because she just sits at home worrying about what could happen. Patient told that that can be discussed further once she is here. Patient en route to [facility]. Remedios Middleton RN 12/17/2020 documented in this encounter Plan of Treatment Not on file documented as of this encounter Visit Diagnoses Not on filedocumented in this encounter Care Teams Laundry Route Driver Relationship Specialty [place] [address] [address] [place] [address] PCP - General 07/04/19 [place] [address] [address] [place] [address] 11/16/18 Ernie Shaw MD [address] [place] [address] [address] [place] [address] Marinator Obstetrics and Gynecology 06/10/20 documented as of this encounter
--- OUTSIDE RECORDS SUMMARY | 2024-02-24 20:03 | XMS_ITS | Encounter Summary ---
Author Organization [facility] Address [address] [place] [address] Phone Care Team Providers Care Music Therapy Specialist Name Role Phone Huseyin Dangelo MD Unavailable [phone] Brian Mon MD Primary Care Provider + Ernie Shaw MD Unavailable [phone] Reason for Visit * Reason Onset Date Comments Vaginal Bleeding 12/07/2020 Encounter Details Date Type Department Care Team (Late st Contact Info) Description 12/07/2020 Telephone [facility] Maternal- Medicine [facility] Outpatient Health 7th Floor [address] [place] [address] Fariba Chin RN Vaginal Bleeding Social History Tobacco Use Types Packs/Day Years [...] Telephone Encounter - Fariba Chin RN - 12/07/2020 10:49 AM CDT Carito called this morning to let us know that she is headed to the [facility] for evaluation because she is having vaginal bleeding. I told her I would make a note in her chart and going to be evaluated is the correct thing to do. She verbalized understanding and will be there shortly. documented in this encounter Plan of Treatment Not on file documented as of this encounter Visit Diagnoses Not on filedocumented in this encounter Care Teams Music Therapy Specialist Relationship Specialty [place] [address] [address] [facility] [place] [address] PCP - General 07/04/19 [place] [address] [address] [facility] [place] [address] 11/16/18 Ernie Shaw MD [address] [place] [address] [address] [place] [address] Cork Wirer Obstetrics and Gynecology 06/10/20 documented as of this encounter
--- OUTSIDE RECORDS SUMMARY | 2024-02-24 20:03 | XMS_ITS | Encounter Summary ---
Author Organization [facility] Healthcare Address [address] [place] [address] Care Team Providers Care Flight Radio Officer Name Role Phone Huseyin Dangelo MD Unavailable [phone] Brian Mon MD Primary Care Provider + Ernie Shaw MD Unavailable [phone] Reason for Referral * Diagnostic Imaging (Routine) - Closed Specialty Diagnoses / Procedures Referred By Contac t Referred To Contact Diagnoses Adrenal insufficiency (HCC) Placenta previa specified as without hemorrhage in second trimester Supervision of high-risk , unspecified trimester Procedures US Ob Follow Up Margarita Marie MD Phone: tel: fax: [facility] (All Locations) Referral ID Status Reason Start Date Expiration Date Visits Re quested Visits Authorized [id number] Closed 11/23/2020 12/23/2021 1 1 Reason for Visit * Diagnostic Imaging (Routine) - Closed Specialty Diagnoses / Procedures Referred By Contac t Referred To Contact Diagnoses Adrenal insufficiency (HCC) Placenta previa specified as without hemorrhage in second trimester Supervision of high-risk , unspecified trimester Procedures US Ob Follow Up Margarita Marie MD Phone: tel: fax: [facility] (All Locations) Referral ID Status Reason Start Date Expiration Date Visits Re quested Visits Authorized [id number] Closed 11/23/2020 12/23/2021 1 1 Encounter Details Date Type Department Care Team (Latest Contact Info) Description 12/06/2020 10:24 AM CDT - 12/06/2020 12:04 PM CDT Hospital Encounter [facility] [address] [facility], 7th Floor, [address] [place] [address] Margarita Marie MD [address] [phone] [address] [phone] [place] [address] Adrenal insufficiency (CMS/HCC) (HCC); Placenta previa specified as without hemorrhage in second trimester; Supervision of high-risk , unspecified trimester Discharge [...] encounter Medications at Time of Discharge aspirin 81 mg enteric coated tablet Take [...] MOUTH DAILY 60 tablet 10/23/2020 1 vit no.[id number]-[id number]-bqhin (Classic ) 28 mg iron- 800 mcg [...] Priority Date/Time Associated Diagnosis Comments US OB FOLLOW UP Schedule Routine, Read Routine (OP Routine) 12/06/2020 10:24 AM CDT Adrenal insufficiency (CMS/HCC) (HCC) Placenta previa specified as without hemorrhage in second trimester Supervision of high-risk , unspecified trimester documented in this encounter Results * US Ob Follow Up (12/06/2020 10:24 AM CDT) Fetus# Fetus1 VIEWPOINT Placenta Details anterior, Previa-yes VIEWPOINT Estimated Weight 2,234 g&grams VIEWPOINT Presentation Transverse Lie [facility]IEWPOINT Anatomical Region Laterality Modality Abdomen N/A Ultrasound 12/06/2020 10:2 6 AM CDT us Margarita Marie MD IMG OB US PROCEDURES Final Result documented in this encounter Visit Diagnoses Diagnosis Adrenal insufficiency (HCC) Glucocorticoid deficiency Placenta previa specified as without hemorrhage in second trimester Supervision of high-risk , unspecified trimester documented in this encounter Care Teams Flight Radio Officer Relationship Specialty [place] [address] [address] [facility] [place] [address] PCP - General 07/04/19 [place] [address] [address] [facility] [place] [address] 11/16/18 Ernie Shaw MD [address] [place] [address] [address] [facility] [place] [address] Access Clerk Obstetrics and Gynecology 06/10/20 documented as of this encounter
--- OUTSIDE RECORDS SUMMARY | 2024-02-24 20:03 | XMS_ITS | Encounter Summary ---
Author Organization [facility] Healthcare Address [address] [place] [address] Care Team Providers Care Tree Deadener Name Role Phone Huseyin Dangelo MD Unavailable [phone] Brian Mon MD Primary Care Provider + Ernie Shaw MD Unavailable [phone] Reason for Visit * Reason Onset Date Comments Incoming Call 12/09/2020 Having a lupus flare and wants to know what to do Encounter Details Date Type Department Care Team (Late st Contact Info) Description 12/09/2020 Nurse Triage [address] [address] Violette Ludwig RN Social History Tobacco Use [...] Telephone Encounter - Violette Ludwig RN - 12/09/2020 2:25 PM CDT 1040: Patient call stating she is having a lupus flare. States she was told by the OB office that [facility]. Stating she does not want to go to the [facility] because nothing ever gets done. She left a message for her Iron Setter about an hour ago but has not heard back. States it takes them a long time to respond. Suggested that she wait another 1-3 hours for a response from the Iron Setter. Patient stating she has an appointmentfor a non-stress test today and she is just going to go to that appointment. Reports that her baby is moving normally. Explained that she needs to take care of herself first and then we can take careof the baby. Patient indicated understanding, and states she will go to her NST. Reason for Disposition ??? Caller has already spoken to PCP or another triager ??? Caller has already spoken with another triager or PCP AND has further questions AND triager able to answer questions. Answer Assessment - Initial Assessment Questions 1. REASON FOR CALL or QUESTION: What is your reason for calling today? or How can I best help you? or What question do you have that I can help answer? Having a lupus flare and wants to know what to do Protocols used: INFORMATION ONLY CALL - NO [id number], NO CONTACT OR DUPLICATE CONTACT [id number] documented in this encounter Plan of Treatment Not on file documented as of this encounter Visit Diagnoses Not on filedocumented in this encounter Care Teams Tree Deadener Relationship Specialty [place] [address] [address] [facility] [address] [place] [address] PCP - General 07/04/19 [place] [address] [address] [place] [address] 11/16/18 Ernie Shaw MD [address] [place] [address] [address] [place] [address] Family Life Educator Obstetrics and Gynecology 06/10/20 documented as of this encounter
--- OUTSIDE RECORDS SUMMARY | 2024-02-24 20:03 | XMS_ITS | Encounter Summary ---
Author Organization [facility] Address [address] [place] [address] Phone Care Team Providers Care Clinical Education Manager Name Role Phone Huseyin Dangelo MD Unavailable [phone] Brian Mon MD Primary Care Provider + Ernie Shaw MD Unavailable [phone] Reason for Referral * Cardiology (Routine) - Closed Specialty Diagnoses / Procedures Referred By Contac t Referred To Contact Diagnoses Tachycardia Procedures ECG 12 lead Iris Bird MD Phone: tel: fax: [address] [address] Referral ID Status Reason Start Date Expiration Date Visits Re quested Visits Authorized [id number] Closed 12/06/2020 01/05/2022 1 1 Reason for Visit * Reason Comments High Risk Gestation Encounter Details Date Type Department Care Team (Late st Contact Info) Description 12/06/2020 11:15 AM CDT Office Visit [facility] Maternal- Medicine [address] [place] [address] Health 7th Floor [address] [place] [address] Iris Bird MD [address] [phone] [place] [address] Tachycardia (Primary Dx); Supervision of high-risk , unspecified trimester; Polyhydramnios in third trimester, not applicable or unspecified fetus; Placenta previa specified as without hemorrhage in second trimester; Marginal insertion of umbilical cord affecting management of mother in second trimester Social History Tobacco Use Types Packs/Day [...] Sign Reading Time Taken Comments Blood Pressure 135/85 12/06/2020 11:12 AM CDT Pulse 118 12/06/2020 11:12 AM CDT Temperature - - Respiratory Rate - - Oxygen Saturation 98% 12/06/2020 11: 12 AM CDT Inhaled Oxygen Concentration - - Weight 85.6 kg (188 lb 12.8 oz) 021 11:12 AM CDT Height - - Body Mass Index 34.53 12/01/2020 8:00 AM CDT documented in this encounter Progress Notes * Margarita Olea MD - 12/06/2020 11:15 AM CDT [facility] Return Visit 12/06/2020 Carito Madison is a 30 y.o. at 32w4d bywho is here for a return OB visit. Her is complicated by placenta previa, SLE with secondary adrenal insufficiency, iron deficiency anemia,anxiety, and mild polyhydramnios. Subjective: She denies contractions, vaginal bleeding, leakage of fluid; + FM. Has noted that ever since her IV iron infusion, she has had tachycardia. Denies palpitations, chest pain, chest pressure, shortness of breath. Had transient LE edema this weekend but has since resolved. Recently Rxd azithromycin for a sinus infection by a PCP. Objective: BP 135/85 Pulse 118 Wt 188 lb 12.8 oz (85.6 kg) LMP (LMP Unknown) Comment: LMP end of Mar 2020 SpO2 98% BMI 34.53 kg/m?? General: NAD Abdomen: Soft, gravid, NT Extremities: WWP, no edema Ultrasound: 12/06/2020 32w4d EFW 2234 (72%), transverse presentation, BRI 24cm, DVP 9.3 cm, placenta previa. BPP 8/8. Assessment/Plan: Carito Madison is a 30 y.o. at 32w4d here for return OB visit. Adrenal insufficiency (CMS/HCC) ([facility]) Endocrinology notes reviewed. Prednisone dose was increased on 11/30 to 7.5 mg/day. Plan for stress dose steroids intradelivery reviewed. Supervision of high-risk , unspecified trimester Patient declined flu vaccine given prior Guillan [place] reaction. Marginal insertion of umbilical cord affecting management of mother in second trimester Fetus remains AGA Placenta previa specified as without hemorrhage in second trimester No bleeding or contractions. Precautions were again reviewed. Generalized anxiety disorder Ms. Madison is intermittently taking her Zoloft. We stressed the importance of continuous use for maximal benefit, especially in preparation for possible mood disorder exacerbations in the period. Polyhydramnios in third trimester, not applicable or unspecified fetus We discussed the US findings today of [...] once weekly BPP for amniotic fluid assessment. Tachycardia Ms. Madison notes tachycardia starting around 12/01 following her IV iron infusion. We discussed thattachycardia may be expected during the infusion, but is less likely to persist after the infusion has been completed.This also coincided with her recent uptitration of daily prednisone. We have ordered an EKG for evaluation. She has no other cardiac symptoms. 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 Precautions reviewed. Anemia during in third trimester S/p IV iron infusion 11/30/20. She is aware that maximal benefit is typically seen 3-4 weeks post transfusion. Patient was seen and discussed with Dr. Bird who agree's with the above documented assessment andplan. Margarita Olea MD Maternal- Medicine Fellow Department of Obstetrics and Gynecology Pager: [phone] Cosigned by Iris Bird MD at 12/21/2020 7:13 PM CDT Associated attestation - Iris Bird MD - 12/21/2020 7:13 PM CDT I have seen and examined the patient. I agree with the findings and plan of care as documented in the resident/fellow's note. documented in this encounter Miscellaneous Notes * Assessment & Plan Note - Margarita Olea MD - 12/06/2020 5:09 PM CDT Associated Problem(s): Anemia during in third trimester S/p IV iron infusion 11/30/20. She is aware that maximal benefit is typically seen 3-4 weeks post transfusion. * Assessment & Plan Note - Margarita Olea MD - 12/06/2020 5:02 PM CDT Associated Problem(s): Tachycardia Ms. Madison notes tachycardia starting around 10/6 following her IV iron infusion. We discussed thattachycardia may be expected during the infusion, but is less likely to persist after the infusion has been completed.This also coincided with her recent uptitration of daily prednisone. We have ordered an EKG for evaluation. She has no other cardiac symptoms. 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 Precautions reviewed. * Assessment & Plan Note - Margarita Olea MD - 12/06/2020 4:59 PM CDT Associated Problem(s): Polyhydramnios in third trimester, not applicable or unspecified fetus We discussed the US findings today of [...] once weekly BPP for amniotic fluid assessment. * Assessment & Plan Note - Margarita Olea MD - 12/06/2020 4:58 PM CDT Associated Problem(s): Generalized anxiety disorder Ms. Madison is intermittently taking her Zoloft. We stressed the importance of continuous use for maximal benefit, especially in preparation for possible mood disorder exacerbations in the period. * Assessment & Plan Note - Margarita Olea MD - 12/06/2020 4:57 PM CDT Associated Problem(s): Placenta previa No bleeding or contractions. Precautions were again reviewed. * Assessment & Plan Note - Margarita Olea MD - 12/06/2020 4:57 PM CDT Associated Problem(s): Marginal insertion of umbilical cord affecting management of mother in second trimester Fetus remains AGA * Assessment & Plan Note - Margarita Olea MD - 12/06/2020 4:56 PM CDT Associated Problem(s): Supervision of high-risk , unspecified trimester Patient declined flu vaccine given prior Guillan [place] reaction. * Assessment & Plan Note - Margarita Olea MD - 12/06/2020 4:54 PM CDT Associated Problem(s): Adrenal insufficiency (CMS/HCC) (HCC) Endocrinology notes reviewed. Prednisone dose was increased on 11/30 to 7.5 mg/day. Plan for stress dose steroids intradelivery reviewed. documented in this encounter Plan of Treatment Not on file documented as of this encounter Procedures Procedure Name Priority Date/Time Associated Diagnosis Comments POCT OB URINE SHORT DIP (GLUCOSE, PROTEIN, KETONES) Routine 12/06/2020 11:39 AM CDT Supervision of high-risk , unspecified trimester documented in this encounter Results * HIV 1/2 Antibody plus p24 Antigen (12/06/2020 12:37 PM CDT) HIV 1/2 ab + p24 ag Nonreactive Nonreactive [facility] Comment: Nonreactive for HIV-1 antigen and HIV-1/HIV-2 antibodies. No laboratory evidence of HIV infection. If acute HIV infection is suspected, consider testing for HIV-1 RNA. Blood 12/06/2020 12:3 7 PM CDT 12/06/2020 12:52 PM CDT Iris Bird MD LAB MICROBIOLOGY - GENERAL ORDERABLES Final Result Performing Organization Address City/[facility]/ZIP Co de Phone Number [facility] [place] [address] * RPR (12/06/2020 12:37 PM CDT) [facility] RPR Nonreactive Nonreactive [facility] Blood 12/06/2020 12:3 7 PM CDT 12/06/2020 12:52 PM CDT Iris Bird MD LAB MICROBIOLOGY - GENERAL ORDERABLES Final Result Performing Organization Address [facility] de Phone Number [facility] [place] [address] * (ABNORMAL) CBC without differential (12/06/2020 12:37 PM CDT) [facility] WBC 11.8(H) 3.8 - 9.9 K/cumm [facility] Hgb 10.1(L) 11.9 - 15.5 g/dL [facility] Hct 31.6(L) 35.6 - 45.5 % [facility] Plt 233 150 - 400 K/cumm [facility] MPV 10.0 9.1 - 12.3 fL [facility] RBC 3.63(L) 3.90 - 5.20 M/cumm [facility] MCV 87.1 81.3 - 96.4 fL [facility] MCH 27.8 27.1 - 33.3 pg [facility] MCHC 32.0(L) 32.3 - 35.7 g/dL [facility] RDW CV 17.6(H) 11.1 - 14.9 % [facility] RDW SD 52.1(H) 35.7 - 48.1 fL [facility] NRBC abs 0.00 0.00 - 0.01 K/cumm [facility] Blood 12/06/2020 12:3 7 PM CDT 12/06/2020 12:52 PM CDT Iris Bird MD LAB BLOOD ORDERABLES Final Result Performing Organization Address City/[facility]/ZIP Co de Phone Number [facility] Department [place] [address] * ECG 12 lead (12/06/2020 12:25 PM CDT) Ventricular Rate EKG/Min 100 BPM [facility] Atrial Rate 100 BPM [facility] AL-Interval (MSEC) 126 ms [facility] QRS-Interval (MSEC) 74 ms [facility] QT-Interval (MSEC) 342 ms [facility] QTc 441 ms [facility] P [place] 21 degrees [facility] R [place] 5 degrees [facility] T [place] 3 degrees [facility] Diagnosis Normal sinus rhythm Nonspecific ST abnormality Abnormal ECG When compared with ECG of 06-SEP-2020 15:31, No significant change was found Confirmed by WILBERT JACOBS M.D ([id number]) on 12/07/2020 10:06:30 AM [facility] 12/06/2020 12:2 5 PM CDT 12/07/2020 10:06 AM CDT Iris Bird MD ECG ORDERABLES Final Resu lt Performing Organization Address City/[facility]/ZIP Co de Phone Number [facility] * (ABNORMAL) POCT OB urine short dip (glucose, protein, ketones) (12/06/2020 11:39 AM CDT) Glucose, ur, POC Negative Negative mg/dL Protein, ur, POC Trace(A) Negative Ketones, ur, POC Negative Negative Lot Number [id number] Urine 12/06/2020 11:3 9 AM CDT Iris Bird MD POINT OF CARE TEST ORDERAB LES Final Result documented in this encounter Visit Diagnoses Diagnosis Tachycardia- Primary Unspecified tachycardia Supervision of high-risk , unspecified trimester Polyhydramnios in third trimester, not applicable or unspecified fetus Placenta previa specified as without hemorrhage in second trimester Marginal insertion of umbilical cord affecting management of mother in second trimester documented in this encounter Historical Medications * This list may reflect changes made after this encounter. Medication Sig Dispense Quantity Refills Last Filled Start D ate End Date azithromycin (ZITHROMAX) 250 mg tablet 12/04/2020 12/17/2020 added in this encounter Care Teams Clinical Education Manager Relationship Specialty [place] [address] [address] [facility] [place] [address] PCP - General 07/04/19 [place] [address] [address] [facility] [place] [address] 11/16/18 Ernie Shaw MD [address] [facility] [address] [place] [address] Towel Distributor Obstetrics and Gynecology 06/10/20 documented as of this encounter
--- OUTSIDE RECORDS SUMMARY | 2024-02-24 20:03 | XMS_ITS | Encounter Summary ---
Author Organization [facility] Element Power of [facility] Address [address] [place] [address] Phone Care Team Providers Care Supervisor Twisting Department Name Role Phone Huseyin Dangelo MD Unavailable [phone] Brian Mon MD Primary Care Provider + Ernie Shaw MD Unavailable [phone] Reason for Visit * Reason Comments Routine Visit Encounter Details Date Type Department Care Team (Late st Contact Info) Description 12/13/2020 10:15 AM CDT Office Visit [facility] Maternal- Medicine [facility] 7th Floor [address] [place] [address] Iris Bird MD [address] [place] [phone] [place] [address] Supervision of high-risk , unspecified trimester (Primary Dx); Secondary adrenal insufficiency (CMS/HCC) (HCC); Polyhydramnios in third trimester, not applicable or unspecified fetus; Placenta previa specified as without hemorrhage in second trimester; Marginal insertion of umbilical cord affecting management of mother in second trimester; Lupus (CMS/HCC) (HCC); Generalized anxiety disorder; Anemia during in third trimester; Adrenal insufficiency (CMS/HCC) (HCC) Social History [...] Sign Reading Time Taken Comments Blood Pressure 120/84 12/13/2020 9:32 AM CDT Pulse 110 12/13/2020 9:32 AM CDT Temperature - - Respiratory Rate - - Oxygen Saturation 98% 12/13/2020 9:32 AM CDT Inhaled Oxygen Concentration - - Weight 86.6 kg (191 lb) 12/13/2020 9:32 AM CDT Height 157.5 cm (5' 2 ) 12/13/2020 9:32 AM CDT Body Mass Index 34.93 12/13/2020 9:32 AM CDT documented in this encounter Progress Notes * Iris Bird MD - 12/13/2020 10:15 AM CDT Images from the original note were not included. [facility] Return Visit 12/17/2020 Carito Spence is a 30 y.o. at 33w4d with 01/27/2021, Alternate MANE Entry who is here fora return OB visit. Her is complicated by placenta previa, SLE with secondary adrenal insufficiency, iron deficiency anemia, anxiety, and mild polyhydramnios. Subjective: She reports no complaints. No CTX/LOF/VB. +FM. No VB since [facility] visit 12/07. Objective: BP 120/84 Pulse 110 Ht 157.5 cm (5' 2 ) Wt 191 lb (86.6 kg) LMP (LMP Unknown) Comment: LMP end of Mar 2020 SpO2 98% BMI 34.93 kg/m?? General: NAD Abdomen: Soft, gravid, NT Extremities: WWP, no edema Ultrasound: 12/17/2020 33w4d EFW 2234 g (72%), transverse, anterior previa, BPP 10/03, nl fluid Assessment/Plan: Carito Spence is a 30 y.o. at 33w4d with 01/27/2021, Alternate MANE Entry with a complicated by placenta previa, SLE with secondary adrenal insufficiency, iron deficiency anemia, anxiety, and mild polyhydramnios. Problem List MANE 01/30/21 Polyhydramnios in third trimester, not applicable or unspecified fetus Overview Mild polyhydramnios previously noted and counseled; most recently normal diabetic screen normal 10/15: fluid normal 12/06: DVP 9.3, BRI 24.0 12/13/ DVP 5.7 cm BRI 15.6 cm Lupus (CMS/HCC) ([facility]) Overview S/p counseling at initial visit 11/16: CMP, platelets WNL Plan: -Currently taking hydroxychloroquine to 200 mg alternating with 400 mg every other day, prednisone 5mg daily -Discussion with rheum in starting azothiaprine - discontinued benlysta after counseling d/t concerns -Serial growths- AGA - testing at 32 weeks- discussed -81 mg ASA at 12 weeks -BMP q trimester for renal surveillance. -Baseline preElabs, P:C 91 Adrenal insufficiency (CMS/HCC) ([facility]) Overview - Current regimen: 7.5 mg daily (as of 11/30) - Delivery plan: 200 mg IV hydrocortisone x 24h on day of delivery followed by 15mg/d x 48h followed 5 mg/d thereafter Secondary adrenal insufficiency (CMS/HCC) ([facility]) Overview Carito has a history of possible secondary adrenal insufficiency 2/2 chronic steroid use for her lupus. She is currently on prednisone 5 mg for her lupus. She was advised to transition to hydrocortisone or higher dose prednisone by endocrinology during her and stress-dose steroids were discussed. S/p counseling at initial visit [ ] Endocrinology appt scheduled for 12/16 Supervision of high-risk , unspecified trimester - Primary Overview PREFERS TO NOT HAVE MEDICAL STUDENTS INVOLVED IN HER CARE [x] Full MFM Care; [x] Red Team- pt preference [x] Referring Provider: Dr. Sheldon Delgado [x] Dating Criteria: US 06/04/20 with MANE 01/30/21 [x] Labs: Rh [ A+], Ab [Neg ], Rubella [Imm ], HIV [Neg ], HepBSAg [Neg ], RPR [NR ], GC/CT [negative/negative] [x] Genetic Screening: [place] low risk 07/09 [x] CBC/Hgb 11.7/35.0/306 [x] [...] Flu Shot (Oct-Jan): declines, previously had Guillian Erie [x] Tdap (27-36wks): 11/23/2020 [x] COVID Vaccine: s/p both doses 3rd Tri Labs: [x] CBC/HIV/RPR: 10.1/31.6/233/ HIV:NR/ RPR: NR [] GBS: [x] COVID testing: set up for 12/27/20 at [facility] [] hibiclens Counselling [x] MOD: Current plan is for C/S at 36 weeks in the setting of a previa with 4 prior bleeds:36w0d on 12/30 @ 1130- letter sent and covid ordered. She has already received BMZ and would not be a candidate for rescue BMZ [x] Place of delivery: [facility] [] MOC: [] Method of feeding: [] Steam Bone Press Tender: [] PP Depression Discussed: Generalized anxiety disorder Overview Ms spence reports severe anxiety and near panic in this thus far. This is not a new issuefor her, but it has significantly worsened in . S/p counseling at initial visit Plan: -[facility] referral, following -Zoloft 25 mg/day -psych referral Marginal insertion of umbilical cord affecting management of mother in second trimester Overview Marginal cord insertion can be associated with growth restriction. Serial growths- currently AGA Placenta previa specified as without hemorrhage in second trimester Overview Update 11/23/20: S/p 4 bleeds, has [...] GI consult. Dr. Shukla to room to correctional counselor/case manager patient regarding risks of daily bleeding in [...] anxiety re: anesthesia at time of delivery) [ ] Per patient request, desires to revisit delivery at 36 weeks vs 37 weeks (with inpt admission at 36 weeks). She is aware that at this time, the recommendation is for delivery at 36 weeks. Anemia during in third trimester Overview 11/09/20 [facility] POCT Hgb 9.3 - pt reported fatigue and requested iron infusion Further review of Hgb on 10/19/20 [10.3] and 11/16/20 [10.1] Ferritin ordered for 11/23/20 and pt to follow up on 11/23/20 -- Ferritin 10 11/23/2020 Iron infusion completed 11/30/20 Specialty Infusion Treatment Lupus (CMS/HCC) (HCC) Overview S/p counseling at initial visit 11/16: CMP, platelets WNL Plan: -Currently taking hydroxychloroquine to 200 mg alternating with 400 mg every other day, prednisone 5mg daily -Discussion with rheum in starting azothiaprine - discontinued benlysta after counseling d/t concerns -Serial growths- AGA - testing at 32 weeks- discussed -81 mg ASA at 12 weeks -BMP q trimester for renal surveillance. -Baseline preElabs, P:C 91 Secondary adrenal insufficiency (CMS/HCC) (HCC) Overview Carito has a history of possible secondary adrenal insufficiency 2/2 chronic steroid use for her lupus. She is currently on prednisone 5 mg for her lupus. She was advised to transition to hydrocortisone or higher dose prednisone by endocrinology during her and stress-dose steroids were discussed. S/p counseling at initial visit [ ] Endocrinology appt scheduled for 12/16 Specialty Infusion Treatment 2 Adrenal insufficiency (CMS/HCC) (HCC) Overview - Current regimen: 7.5 mg daily (as of 11/30) - Delivery plan: 200 mg IV hydrocortisone x 24h on day of delivery followed by 15mg/d x 48h followed 5 mg/d thereafter Iris Bird MD, MPH Maternal Medicine documented in this encounter Plan of Treatment Not on file documented as of this encounter Visit Diagnoses Diagnosis Supervision of high-risk , unspecified trimester- Primary Secondary adrenal insufficiency (HCC) Polyhydramnios in third trimester, not applicable or unspecified fetus Placenta previa specified as without hemorrhage in second trimester Marginal insertion of umbilical cord affecting management of mother in second trimester Lupus Systemic lupus erythematosus Generalized anxiety disorder Anemia during in third trimester Adrenal insufficiency (HCC) Glucocorticoid deficiency documented in this encounter Care Teams Supervisor Twisting Department Relationship Specialty [place] [address] [address] [place] [address] PCP - General 07/04/19 [place] [address] [address] [facility] [place] [address] 11/16/18 Ernie Shaw MD [address] [place] [address] [address] [place] [address] Final Dressing Cutter Obstetrics and Gynecology 06/10/20 documented as of this encounter
--- OUTSIDE RECORDS SUMMARY | 2024-02-24 20:03 | XMS_ITS | Encounter Summary ---
Author Organization [facility] Healthcare Address [address] [place] [address] Care Team Providers Care Bowling Floor Manager Name Role Phone Huseyin Dangelo MD Unavailable Brian Mon MD Primary Care Provider + Ernie Shaw MD Unavailable [phone] Reason for Visit * Reason Onset Date Comments Incoming Call 12/04/2020 Medicatio n question Encounter Details Date Type Department Care Team (Late st Contact Info) Description 12/04/[address] [address] Fallon Callahan RN Incoming Call (Medication question) Social History Tobacco Use Types Packs/Day Years [...] Telephone Encounter - Fallon Callahan RN - 12/04/2020 5:12 PM CDT Patient called stating she had sinus and ear infection and went to urgent care. Stated she had a neg. COVID test. Was given RX for azithromycin(Zpack). Asked if it was okay to take in . Instructed she may take it for her sinus infection as prescribed. Verbalized understanding. documented in this encounter Plan of Treatment Not on file documented as of this encounter Visit Diagnoses Not on filedocumented in this encounter Care Teams Bowling Floor Manager Relationship Specialty [place] [address] [address] [place] [address] PCP - General 07/04/19 [place] [address] [address] [place] [address] 11/16/18 Ernie Shaw MD [address] [place] [address] [address] [place] [address] Solid Waste Division Supervisor Obstetrics and Gynecology 06/10/20 documented as of this encounter
--- OUTSIDE RECORDS SUMMARY | 2024-02-24 20:03 | XMS_ITS | Encounter Summary ---
Author Organization [facility] Healthcare Address [address] [place] [address] Care Team Providers Care Patrol Sergeant Name Role Phone Huseyin Dangelo MD Unavailable [phone] Brian Mon MD Primary Care Provider + Ernie Shaw MD Unavailable [phone] Reason for Visit * Reason Onset Date Comments Incoming Call 12/13/2020 Having lo w abdominal pain - it takes her breath away Encounter Details Date Type Department Care Team (Late st Contact Info) Description 12/13/2020 Nurse Triage [address] [address] Violette Ludwig RN Social History Tobacco Use [...] Telephone Encounter - Violette Ludwig RN - 12/13/2020 7:23 PM CDT 1850: Patient called stating she is feeling low abdominal pain that comes and goes and takes her breath away. Reports that this started when she felt like she had to poop , but was unable to do so. Denies any vaginal bleeding. Her baby is moving. Worried that she might be in labor. Advised to comein to be seen - patient has a placenta previa. Patient states she will do so. Reason for Disposition ? ? [1] Having contractions or other symptoms of labor (such as vaginal pressure) AND [2] < 37 weeks (i.e., ) ??? MODERATE-SEVERE abdominal pain Answer Assessment - Initial Assessment Questions 1. LOCATION: Where does it hurt? Low abdomen 2. RADIATION: Does the pain shoot anywhere else? (e.g., chest, back) Denies 3. ONSET: When did the pain begin? (Minutes, hours or days ago) Late this afternoonj 4. ONSET: Gradual or sudden onset? Sudden 5. PATTERN: Does the pain come and go, or has it been constant since it started? Comes and goes 6. SEVERITY: How bad is the pain? What does it keep you from doing? (e.g., Scale 1-10; mild, moderate, or severe) - MILD (1-3): doesn't interfere with normal activities, abdomen soft and not tender to touch - MODERATE (4-7): interferes with normal activities or awakens from sleep, tender to touch - SEVERE (8-10): excruciating pain, doubled over, unable to do any normal activities Moderate and severe 7. RECURRENT SYMPTOM: Have you ever had this type of stomach pain before? If Yes, ask: When was the last time? and What happened that time? Denies feeling this pain before 8. CAUSE: What do you think is causing the stomach pain? Worried that she is in labor 9. RELIEVING/AGGRAVATING FACTORS: What makes it better or worse? (e.g., antacids, bowel movement,movement) Has not tried anything 10. MOVEMENT: Has the baby's movement decreased or changed significantly from normal? Baby is moving normally 11. OTHER SYMPTOMS: Has there been any vaginal bleeding, fever, vomiting, diarrhea, or urine problems? Denies 12. MANE: What date are you expecting to deliver? MANE: 01/27/2021 Protocols used: - ABDOMINAL PAIN GREATER THAN 20 WEEKS [id number], - LABOR - [id number] documented in this encounter Plan of Treatment Not on file documented as of this encounter Visit Diagnoses Not on filedocumented in this encounter Care Teams Patrol Sergeant Relationship Specialty [place] [address] [address] [place] [address] PCP - General 07/04/19 [place] [address] [address] [place] [address] 11/16/18 Ernie Shaw MD [address] [place] [address] [address] [place] [address] Electric Power Machine Operator Obstetrics and Gynecology 06/10/20 documented as of this encounter
--- OUTSIDE RECORDS SUMMARY | 2024-02-24 20:03 | XMS_ITS | Encounter Summary ---
Author Organization [facility] Healthcare Address [address] [place] [address] Care Team Providers Care Commutator Inspector Name Role Phone Huseyin Dangelo MD Unavailable [phone] Brian Mon MD Primary Care Provider + Ernie Shaw MD Unavailable [phone] Reason for Visit * Reason Comments Problem bleed this morning, headache, lightheadedness, leaking Encounter Details Date Type Department Care Team (Latest Contact Info) Description 12/07/2020 11:02 AM CDT - 12/07/2020 12:15 PM CDT Hospital Encounter [address] [address] Lydia Juarez MD [address] [facility] [phone] [place] [address] Discharge Disposition: Discharge to home or self [...] Reading Time Taken Comments Blood Pressure 120/72 12/07/2020 11:12 AM CDT Pulse 123 12/07/2020 11:12 AM CDT Temperature 36.8 ??C (98.3 ??F) 12/07/2020 1 1:12 AM CDT Respiratory Rate 20 12/07/2020 11:1 2 AM CDT Oxygen Saturation 98% 12/07/2020 11: 12 AM CDT Inhaled Oxygen Concentration - - Weight 86.5 kg (190 lb 11.2 oz) 021 11:12 AM CDT Height 157.5 cm (5' 2 ) 12/07/2020 11:1 2 AM CDT Body Mass Index 34.88 12/07/2020 11:12 AM CDT documented in this encounter Discharge Diagnoses Diagnosis Complete placenta previa with hemorrhage, third trimester - COMPLETE PLACENTA PREVIA WITH HEMORRHAGE, THIRD TRIMESTER Other mental disorders complicating , third trimester - OTHER MENTAL DISORDERS COMPLICATING , THIRD TRIMESTER Depression, unspecified - DEPRESSION, UNSPECIFIED Anxiety disorder, unspecified - ANXIETY DISORDER, UNSPECIFIED Other specified diseases and conditions complicating - OTHER SPECIFIED DISEASES AND CONDITIONS COMPLICATING 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 ([facility]) ([facility]) - GLOMERULAR DISEASE IN SYSTEMIC LUPUS ERYTHEMATOSUS Rheumatoid arthritis, unspecified ([facility]) - RHEUMATOID ARTHRITIS, UNSPECIFIED Personal history of nicotine dependence - PERSONAL HISTORY OF NICOTINE DEPENDENCE 32 weeks gestation of - 32 WEEKS GESTATION OF FPC (current) use of aspirin - GOODS LAYER (CURRENT) USE OF ASPIRIN Other mapping technician (current) drug therapy - OTHER GOODS LAYER (CURRENT) DRUG THERAPY FPC (current) use of systemic steroids - GOODS LAYER (CURRENT) USE OF SYSTEMIC STEROIDS Allergy status to penicillin - ALLERGY STATUS [...] MOUTH DAILY 60 tablet 10/23/2020 1 vit no.[id number] (Classic ) 28 mg iron- 800 mcg [...] H&P Notes * Alma Genao MD - 12/07/2020 11:44 AM CDT Obstetrics H&P Chief Complaint: Bleeding today when urination Estimated Date of Delivery: 01/27/21 Provider: RENETTA HPI: Carito Madison is a 30 y.o. female at 32w5d gestation, dated by L=1st trimester ultrasound. Had light bleeding this morning while she was using the bathroom. States she only noticesbleeding when urinating and not every time. She is not reporting any bleeding right now. Has headache occasionally and has vision changes sometimes but neither right now. Her is complicated by adrenal insufficiency, margial cord insertion, placenta previa withoccasional bleeding, generalized anxiety disorder, polyhydramnios, tachycardia and anemia. 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 Patient is . History of Abnormal Pap: None STD History: HSV Past Medical History: Diagnosis Date ??? Anemia [...] Sexual activity: Yes Partners: Male Support System: Supported by . Safe at home: Yes family history includes Colon cancer in an other family member; Diabetes in her mother; Gout in hermother; Heart disease in her father; Hypertension in her mother; Stroke in her father. Family history of bleeding or clotting disorders: No Family history of defects, genetic disorders, or developmental delay: Yes, patient's nephew has Austism and CHD. Allergies Allergen Reactions ??? Macrobid [Nitrofurantoin Monohyd/M-Cryst] [...] lupus ??? Venlafaxine Itching HOME MEDICATIONS : aspirin 81 mg enteric coated tablet azithromycin (ZITHROMAX) 250 mg tablet ferrous gluconate (ferrous gluconate) 324 mg (37.5 mg of elemental iron) tablet hydrOXYchloroQUINE (PLAQUENIL) 200 mg tablet omeprazole (PriLOSEC) 20 mg capsule ondansetron ODT (ZOFRAN-ODT) 8 mg disintegrating tablet polyethylene glycol (MIRALAX) 17 gram/dose powder predniSONE (DELTASONE) 5 mg tablet vit no.645-[id number]-gnkir (Classic ) 28 mg iron- 800 mcg tablet sertraline (ZOLOFT) 25 mg tablet valACYclovir (VALTREX) 500 mg tablet Review of Sys: Negative except per HPI Vitals: Temp: [36.8 ??C (98.3 ??F)] 36.8 ??C (98.3 ??F) Pulse: [123] 123 Resp: [20] 20 BP: (120)/(72) 120/72 Physical Exam: General: NAD, mood appropriate Cardiovascular: Regular rate and rhythm Pulmonary: Clear to ausculation bilaterally Abdomen: Gravid, non-tender Extremities: Warm and well perfused Speculum Exam: deferred Cervix: deferred Monitoring: Baseline: 135 bpm, Variability: Moderate, Accelerations: Present and Decelerations: None Uterine Activity: No contractions seen on toco Interpretation: Reactive Ultrasound: Not indicated today Labs: Lab Results Component Value Date ABORH A Positive 11/29/2020 IDCOOMB Negative 11/29/2020 [id number] Nonreactive 12/06/2020 LABRPR Nonreactive 12/06/2020 Assessment and Plan Carito Madison is a 30 y.o. female at 32w5d who presented with bleeding when using the bathroom today. #Bleeding Patient declines to be admitted today to monitor bleeding. States she will come back if the bleeding starts again. Reports being less concerned because the previa is marginal on ultrasound yesterday. I discussed with patient the risks involved with a bleeding previa including and maternal . Patient clearly understands the risks and still wants to go home. No other acute complaints today. Will keep her next scheduled appointment. Plan discussed with Dr. Genao. OK to discharge patient home. Having no bleeding at this time andrefusing admission to monitor. Lorena Huerta NP 12/07/20 M Fellow Attestation I have discussed Carito Madison with the above provider on 12/07/2020. I have reviewed the treatment plan and recommendations. I agree with the findings and the plan of care as documented in the note with the following addendum: Briefly, this is a 30 y.o. at 32w5d with complicated by adrenal insufficiency, margial cord insertion, low lying placenta with occasional bleeding, generalized anxiety disorder, polyhydramnios, tachycardia and anemia who presents with vaginal bleeding prior to admission. Patient offered admission given ongoing bleeding and declined, have extensively discussed the risks/benefits of inpatient monitoring vs. Home in prior presentations. Patient discharged home with return precautions. Alma Genao MD Maternal- Medicine Fellow Cosigned by Lydia Juarez MD at 12/08/2020 8:22 AM CDT Associated attestation - Lydia Juarez MD - 12/08/2020 8:22 AM CDT Attending Attestation I agree with the findings and plan of care as documented in the resident's/fellow's note. documented in this encounter Procedure Notes * Maura Moreno MD - 12/07/2020 12:15 PM CDT Procedures FHR Baseline: 135 Variability: moderate Accelerations: present Decelerations: absent Contractions: absent Reactive: Yes I have reviewed the NST. Maura Moreno MD * Lorena Huerta NP - 12/07/2020 12:12 PM CDT Procedures FHR Baseline: 135 Variability: moderate Accelerations: present Decelerations: absent Contractions: absent Reactive: Yes I have reviewed the NST. Lorena Huerta NP Cosigned by Maura Moreno MD at 12/07/2020 1:16 PM CDT documented in this encounter Nursing Notes * Ritika Thayer RN - 12/07/2020 12:21 PM CDT Patient left without signing papers. * Ritika Thayer RN - 12/07/2020 12:15 PM CDT Patient presents to [facility] stating she was having vaginal bleeding this morning. Bleeding noted in toilet only, none on underwear or clothing. Denies gush off fluid, contractions. Endorses good movement. Patient declines tylenol and speculum exam. Reactive NST. Discussed continuing Sex restrictions. Patient verbalized understanding documented in this encounter Plan of Treatment Not on file documented as of this encounter Visit Diagnoses Diagnosis Generalized anxiety disorder Marginal insertion of umbilical cord affecting management of mother in second trimester Placenta previa specified as without hemorrhage in second trimester documented in this encounter [...] are shown in CDT. Scheduled Medication Order 12/05/2020 12/06/2020 12/07/2020 acetaminophen (TYLENOL) tablet 1,000 mg 1,000 mg, oral, Once, On Sun12/07/20 at 1215, For 1 dose 1215 (Due) documented in this encounter Orders Medications Ordered That Omer ht Not Have Been Administered Count Last Ordered Date First Ordered Date acetaminophen (TYLENOL) tablet 1,000 mg 1 1 documented in this encounter Care Teams Commutator Inspector Relationship Specialty [place] [address] [address] PCP - General 07/04/19 [place] [address] [address] [address] 11/16/18 Ernie Shaw MD [address] [facility] [address] [place] [id number] Medical Csr Obstetrics and Gynecology 06/10/20 documented as of this encounter
--- OUTSIDE RECORDS SUMMARY | 2024-02-24 20:03 | XMS_ITS | Encounter Summary ---
Author Organization [facility] Healthcare Address [address] [place] [address] Care Team Providers Care Brim Ironer Hand Name Role Phone Huseyin Dangelo MD Unavailable [phone] Brian Mon MD Primary Care Provider + Ernie Shaw MD Unavailable [phone] Reason for Visit * Reason Onset Date Comments Incoming Call 12/05/2020 Increased heart rate Encounter Details Date Type Department Care Team (Late st Contact Info) Description 12/05/[address] [address] Fallon Callahan RN Incoming Call (Increased heart rate) Social History Tobacco Use Types Packs/Day Years [...] Telephone Encounter - Fallon Callahan RN - 12/05/2020 9:53 AM CDT 30 y/o called this morning reporting that her heart rate was increased. BP 107/60, P-120. Noted history of tachycardia. Denies lightheadedness or dizziness, S OB, CP. Reports movement and denies cramping, LOF or vaginal bleeding. Does report diarrhea this morning since she is on antiobiotics for sinus infection. States she has not been drinking much fluid. Encouraged to po hydrate, bland diet, yogurt, rest. States she has her baby shower today. Has follow up appt. 12/06. Instructed to go to ED for lightheadedness, CP, SOB, fever, decreased movement or symptoms of labor. Verbalizes understanding of instructions. documented in this encounter Plan of Treatment Not on file documented as of this encounter Visit Diagnoses Not on filedocumented in this encounter Care Teams Brim Ironer Hand Relationship Specialty [place] [address] [address] [place] [address] PCP - General 07/04/19 [place] [address] [address] [place] [address] 11/16/18 Ernie Shaw MD [address] [place] [address] [address] [place] [address] Dry Cell And Battery Assembler Obstetrics and Gynecology 06/10/20 documented as of this encounter
--- OUTSIDE RECORDS SUMMARY | 2024-02-24 20:03 | XMS_ITS | Encounter Summary ---
Author Organization [facility] Healthcare Address [address] [place] [address] Care Team Providers Care Table Games Dealer Name Role Phone Huseyin Dangelo MD Unavailable [phone] Brian Mon MD Primary Care Provider + Ernie Shaw MD Unavailable [phone] Reason for Referral * Diagnostic Imaging (Routine) - Closed Specialty Diagnoses / Procedures Referred By Contac t Referred To Contact Diagnoses Antepartum variable deceleration Procedures Ob Limited Crystal [place] MD [address] [facility] [phone] [place] [address] Phone: tel: fax: [facility] (All Locations) Referral ID Status Reason Start Date Expiration Date Visits Re quested Visits Authorized [id number] Closed 12/10/2020 01/09/2022 1 1 Reason for Visit * Diagnostic Imaging (Routine) - Closed Specialty Diagnoses / Procedures Referred By Contac t Referred To Contact Diagnoses Antepartum variable deceleration Procedures Ob Limited Crystal [place] MD [address] [facility] [phone] [place] [address] Phone: tel: fax: [facility] (All Locations) Referral ID Status Reason Start Date Expiration Date Visits Re quested Visits Authorized [id number] Closed 12/10/2020 01/09/2022 1 1 Encounter Details Date Type Department Care Team (Latest Contact Info) Description 12/10/2020 10:12 AM CDT - 12/10/2020 11:59 PM CDT Hospital Encounter [facility] - Ultrasound [address] [facility], 7th Floor, [address] [place] [facility] [place] [address] Crystal [place] MD [address] [phone] [place] [address] Antepartum variable deceleration Discharge Disposition: Discharge to home or self [...] MOUTH DAILY 60 tablet 10/23/2020 1 vit no.[id number] (Classic ) 28 mg iron- 800 mcg [...] Priority Date/Time Associated Diagnosis Comments US OB LIMITED Schedule Routine, Read Routine (OP Routine) 12/10/2020 10:12 AM CDT Antepartum variable deceleration documented in this encounter Results * US Ob Limited (12/10/2020 10:12 AM CDT) Fetus# Fetus1 VIEWPOINT Placenta Details anterior, Previa-yes VIEWPOINT Presentation Breech VIEWPOINT Anatomical Region Laterality Modality Abdomen N/A Ultrasound 12/10/2020 10:1 2 AM CDT Crystal [place] MD IMG OB US PROCEDURES F inal Result documented in this encounter Visit Diagnoses Diagnosis Antepartum variable deceleration documented in this encounter Care Teams Table Games Dealer Relationship Specialty [place] [address] [address] [facility] [address] [place] [address] PCP - General 07/04/19 [place] [address] [address] [facility] [address] [place] [address] 11/16/18 Ernie Shaw MD [address] [place] [address] [address] [place] [address] Grain Operator Obstetrics and Gynecology 06/10/20 documented as of this encounter
--- OUTSIDE RECORDS SUMMARY | 2024-02-24 20:03 | XMS_ITS | Encounter Summary ---
Author Organization [facility] Address [address] [place] [address] Phone Care Team Providers Care Product Safety Specialist Name Role Phone Huseyin Dangelo MD Unavailable [phone] Brian Mon MD Primary Care Provider + Ernie Shaw MD Unavailable [phone] Reason for Visit * Reason Onset Date Comments Decreased Movement 12/15/2020 Encounter Details Date Type Department Care Team (Late st Contact Info) Description 12/15/2020 Telephone [facility] Maternal- Medicine [address] [facility] 7th Floor [address] [place] [address] Fariba Chin RN Decreased Movement Social History Tobacco Use Types Packs/Day Years [...] Telephone Encounter - Fariba Chin RN - 12/15/2020 3:57 PM CDT Carito called and asked if it was normal to not feel the baby move as much at 34 weeks. I let herknow that sometimes the movements may feel a little different but should not be decreased in frequency and should not be so different that she is worried. I explained that if she is having decreased movement she should go to the [facility] to be evaluated. She stated she drank a coffee because she was worried and still has not felt the baby move much. I again explained that she should be evaluatedat the [facility]. She asked if she could do to [facility] which is closer to her home. I explained that we would prefer that she come to the [facility] since she is our patient and plans to deliver with us but if she would like to go elsewhere that is her decision. She verbalized understanding. documented in this encounter Plan of Treatment Not on file documented as of this encounter Visit Diagnoses Not on filedocumented in this encounter Care Teams Product Safety Specialist Relationship Specialty [place] [address] [address] [place] [address] PCP - General 07/04/19 [place] [address] [address] [place] [address] 11/16/18 Ernie Shaw MD [address] [place] [address] [address] [place] [address] Dynamite Packing Machine Operator Obstetrics and Gynecology 06/10/20 documented as of this encounter
--- OUTSIDE RECORDS SUMMARY | 2024-02-24 20:03 | XMS_ITS | Encounter Summary ---
Author Organization [facility] Healthcare Address [address] [place] [address] Care Team Providers Care Steel Layout Worker Name Role Phone Huseyin Dangelo MD Unavailable [phone] Brian Mon MD Primary Care Provider + Ernie Shaw MD Unavailable [phone] Encounter Details Date Type Department Care Team (Late st Contact Info) Description 12/18/2020 12:10 AM CDT Ancillary Procedure [address] [address] Social History Tobacco Use Types Packs/Day Years [...] Date/Time Associated Diagnosis Comments US OB LIMITED IP Routine 12/18/2020 12:05 AM CDT Supervision of high-risk , unspecified trimester documented in this encounter Results * US Ob Limited (12/18/2020 12:05 AM CDT) Anatomical Region Laterality Modality Abdomen N/A Ultrasound Study GA Study Date Study MANE Working MANE (Source) Feta l Weight (Method) 12/18/2020 01/27/2021 (Alternate MANE Entry) Result Name Value Comments Amniotic fld cm Heart Rate bpm CRL cm Sac Diameter cm Narrative 12/18/2020 12:08 AM CDT [facility] BSUS: transverse presentation us Anneliese Beckman HAND TACKER IMG OB US PROCEDURES Final Re sult documented in this encounter Visit Diagnoses Not on filedocumented in this encounter Care Teams Steel Layout Worker Relationship Specialty [place] [address] [address] [place] [address] PCP - General 07/04/19 [place] [address] [address] [place] [address] 11/16/18 Ernie Shaw MD [address] [place] [address] [address] [place] [address] Telegraphic Service Dispatcher Obstetrics and Gynecology 06/10/20 documented as of this encounter
--- OUTSIDE RECORDS SUMMARY | 2024-02-24 20:03 | XMS_ITS | Encounter Summary ---
Author Organization [facility] [employer] [facility] Address [address] [place] [address] Phone Care Team Providers Care Java Web Services Developer Name Role Phone Huseyin Dangelo MD Unavailable [phone] Brian Mon MD Primary Care Provider + Ernie Shaw MD Unavailable [phone] Encounter Details Date Type Department Care Team (Late st Contact Info) Description 12/09/2020 Telephone [facility] Rheumatology [address] [place] [address] Carolina Delarosa MD [address] [place] [address] Social History Tobacco Use Types [...] encounter Miscellaneous Notes * Telephone Encounter - Carolina Delarosa MD - 12/09/2020 3:24 PM CDT Labs ordered documented in this encounter Plan of Treatment Not on file documented as of this encounter Results * Protein / creatinine ratio, urine, random (12/13/2020 8:44 AM CDT) Protein, ur, quant 14.3 mg/dL [facility] Comment: Interpretive Data No reference range established. Current interpretive data was last revised 2018. Creatinine Ur 142.0 mg/dL [facility] Comment: Interpretive Data No reference range established. Current interpretive data was last revised 2018. Protein/creatinin e ratio 100.7 0.0 - 180.0 mg/g CR [facility] Urine 12/13/2020 8:44 AM CDT 12/13/2020 9:25 AM CDT us Carolina Delarosa MD LAB URINE ORDERABLES Final Result [facility] Department [place] [address] * C4 complement (12/13/2020 8:44 AM CDT) Complement C4 21.1 10.0 - 40.0 mg/dL [facility] Blood 12/13/2020 8:44 AM CDT 12/13/2020 9:25 AM CDT us Carolina Delarosa MD LAB BLOOD ORDERABLES Final Result [facility] Department [place] [address] * (ABNORMAL) Urinalysis reflex to microscopic and culture Urine (12/13/2020 8:44 AM CDT) Color, ur Yellow Yellow [facility] Clarity, ur Cloudy(A) Clear [facility] Specific gravity, ur 1.018 1.003 - 1.030 [facility] pH, urine 6 [facility] Protein, ur ql 1+(A) Negative [facility] Glucose, ur ql Negative Negative [facility] Ketones, ur Negative Negative [facility] Bilirubin, ur Negative Negative [facility] Blood, ur Negative Negative [facility] Urobilinogen, ur <2.0 <2.0 mg/dL [facility] Nitrite, ur Negative Negative [facility] Leukocyte esterase, ur Negative Negative [facility] UA reflex comment Reflex to microscopic UA will be performed. [facility] Urine 12/13/2020 8:44 AM CDT 12/13/2020 9:25 AM CDT Narrative [facility] - 12/13/2020 9:30 AM CDT ?? Urine pH is affected by diet, medications, systemic acid-base disturbances, and renal tubular function. ??pH may affect urinary stone formation. ??For example, urine pH below 6.0 may help reduce the tendency for calcium phosphate stones and pH greater than 6.0 may reduce the tendency for uric acid stone formation. Source: [employer]. Last revised 03-08-2017 Carolina Delarosa MD LAB MICROBIOLOGY - GENERAL ORDERABLES Final Result [facility] Department [place] [address] * (ABNORMAL) Erythrocyte sedimentation rate (12/13/2020 8:44 AM CDT) Erythrocyte sedimentation rate 35(H) 1 - 20 mm/hr [facility] Blood 12/13/2020 8:44 AM CDT 12/13/2020 9:25 AM CDT Carolina Delarosa MD LAB BLOOD ORDERABLES Final Result Performing Organization Address [facility] [[email or web address]] de Phone Number [facility] [place] [address] * Anti-double stranded DNA antibodies (12/13/2020 8:44 AM CDT) Pathologist [facility] dsDNA Ab 4.0 <=4.0 IUnits/mL [facility] Comment: Interpretive Data Negative: < or = 4 IUnits/mL Indeterminate: 5 - 9 IUnits/mL Positive: > or = 10 IUnits/mL Current interpretive data was last revised on 2016. Blood 12/13/2020 8:44 AM CDT 12/13/2020 9:25 AM CDT Carolina Delarosa MD LAB BLOOD ORDERABLES Final Result Performing Organization Address [facility] Co de Phone Number [facility] Department of [place] [address] * CRP (acute phase) (12/13/2020 8:44 AM CDT) [facility] CRP 7.9 <=10.0 mg/L [facility] Blood 12/13/2020 8:44 AM CDT 12/13/2020 9:25 AM CDT Carolina Delarosa MD LAB BLOOD ORDERABLES Final Result Performing Organization Address [facility] [[email or web address] [place] [address] * C3 complement (12/13/2020 8:44 AM CDT) Pathologist [facility] Complement C3 150.0 90.0 - 180.0 mg/dL [facility] Blood 12/13/2020 8:44 AM CDT 12/13/2020 9:25 AM CDT us Carolina Delarosa MD LAB BLOOD ORDERABLES Final Result [facility] Department [place] [address] * (ABNORMAL) Comprehensive metabolic panel (12/13/2020 8:44 AM CDT) Pathologist [facility] Sodium 138 135 - 145 mmol/L [facility] Potassium, pl 3.6 3.3 - 4.9 mmol/L [facility] Chloride 105 97 - 110 mmol/L [facility] CO2 22 22 - 32 mmol/L [facility] Anion gap 11 2 - 15 mmol/L [facility] BUN 5(L) 8 - 25 mg/dL [facility] Creatinine 0.48(L) 0.60 - 1.10 mg/dL [facility] Glucose 106 70 - 199 mg/dL [facility] Comment: Interpretive Data Fasting glucose >/= [...] Calcium 9.4 8.5 - 10.3 mg/dL [facility] Bilirubin, total 0.2 0.1 - 1.2 mg/dL [facility] Protein, pl 6.6 6.5 - 8.5 g/dL [facility] Albumin 3.4(L) 3.5 - 5.0 g/dL [facility] Alk phos 91 40 - 130 Units/L [facility] ALT 19 7 - 45 Units/L [facility] AST 24 10 - 45 Units/L [facility] Blood 12/13/2020 8:44 AM CDT 12/13/2020 9:25 AM CDT us Carolina Delarosa MD LAB BLOOD ORDERABLES Final Result Performing Organization Address [facility]/ZIP Co de Phone Number [facility] Department [place] [address] * (ABNORMAL) CBC with auto differential (12/13/2020 8:44 AM CDT) Pathologist [facility] WBC 9.9 3.8 - 9.9 K/cumm [facility] Hgb 10.6(L) 11.9 - 15.5 g/dL [facility] Hct 33.5(L) 35.6 - 45.5 % [facility] Plt 218 150 - 400 K/cumm [facility] MPV 9.7 9.1 - 12.3 fL [facility] RBC 3.78(L) 3.90 - 5.20 M/cumm [facility] MCV 88.6 81.3 - 96.4 fL [facility] MCH 28.0 27.1 - 33.3 pg [facility] MCHC 31.6(L) 32.3 - 35.7 g/dL [facility] RDW CV 19.3(H) 11.1 - 14.9 % [facility] RDW SD 62.7(H) 35.7 - 48.1 fL [facility] NRBC abs 0.00 0.00 - 0.01 K/cumm [facility] Blood 12/13/2020 8:44 AM CDT 12/13/2020 9:25 AM CDT us Carolina Delarosa MD LAB BLOOD ORDERABLES Final Result [facility] One [facility] of [place] [address] documented in this encounter Visit Diagnoses Diagnosis Other systemic lupus erythematosus with other organ involvement (HCC)- Primary Other systemic lupus erythematosus with other organ involvement (HCC) documented in this encounter Care Teams Java Web Services Developer Relationship Specialty [place] [address] [place] [address] PCP - General 07/04/19 [place] [address] [place] [address] 11/16/18 Ernie Shaw MD [address] [place] [address] [address] [place] [address] [employer] Obstetrics and Gynecology 06/10/20 documented as of this encounter
--- OUTSIDE RECORDS SUMMARY | 2024-02-24 20:03 | XMS_ITS | Encounter Summary ---
Author Organization [facility] [employer] [facility] Address [address] [place] [address] Phone Care Team Providers Care Data Management Analyst Name Role Phone Huseyin Dangelo MD Unavailable [phone] Brian Mon MD Primary Care Provider + Ernie Shaw MD Unavailable [phone] Encounter Details Date Type Department Care Team (Late st Contact Info) Description 12/07/2020 Telephone [facility] Maternal- Medicine [address] [facility] [address] [place] [address] Margarita Olea MD [phone] [place] [address] Social History Tobacco Use Types [...] Telephone Encounter - Margarita Olea MD - 12/07/2020 1:27 PM CDT Spoke to the patient on the phone regarding EKG. Sinus rhythm, HR 100. The patient presented to [facility] for spotting, HR in [facility] 120s. Currently asymptomatic. Return precautions reviewed. Reviewed findings from 12/06 US. Persistent anterior placenta previa with margin of placenta covering the internal os. Presented to [facility] for spotting today, declined pelvic exam. Inquired as to whether or not intercourse was recommended. Specifically discussed that penetrative intercourse is not recommended in the setting of a previa. Also inquired as to whether or not she could be delivered at 37 weeks instead of 36 weeks. We reviewed that in the context of her bleeding previa, there is concern that she may have another significant bleed the longer her progresses or go into labor. We discussed that we will review timing of delivery at her next visit depending on her symptoms. Margarita Olea MD Maternal- Medicine Fellow Department of Obstetrics and Gynecology Pager: [phone] documented in this encounter Plan of Treatment Not on file documented as of this encounter Visit Diagnoses Not on filedocumented in this encounter Care Teams Data Management Analyst Relationship Specialty [place] [address], [place] [address] PCP - General 07/04/19 [place] [address] [place] [address] 11/16/18 Ernie Shaw MD [address] [facility] [address] [address] [place] [address] [place] Obstetrics and Gynecology 06/10/20 documented as of this encounter
--- OUTSIDE RECORDS SUMMARY | 2024-02-24 20:03 | XMS_ITS | Encounter Summary ---
Author Organization [facility] Address [address] [place] [address] Phone Care Team Providers Care Legal Office Administrator Name Role Phone Huseyin Dangelo MD Unavailable [phone] Brian Mon MD Primary Care Provider + Ernie Shaw MD Unavailable Encounter Details Date Type Department Care Team (Late st Contact Info) Description 12/09/2020 Telephone [facility] Obstetrics and Gynecology [address] [place] [id number] Cassandra Francisco Social History Tobacco Use Types Packs/Day Years [...] in a correction (including now)? No 01/01/2021 Comments Yes Sex and Gender Information Value [...] Telephone Encounter - Anh Marin RN - 12/09/2020 10:52 AM CDT I have spoken with patient via [employer] she is aware our recommendation is to go to the [facility] for evaluation of lupus flare and NST. * Telephone Encounter - Cassandra Francisco - 12/09/2020 10:29 AM CDT Patient called stating she sent a message through [employer], but would like to speak with a nurse colleen to lupus flare up, patient states she does not want to be sent to [facility]. Would like to see ifhcrise could see a physician today after NST. documented in this encounter Plan of Treatment Not on file documented as of this encounter Visit Diagnoses Not on filedocumented in this encounter Additional Health Concerns Infection Onset Date Last Indicated Resolved Time COVID: Suspected 12/29/2020 12/29/2020 12/29/2020 1:30 PM CDT documented as of this encounter Care Teams Legal Office Administrator Relationship Specialty [place] [address] [facility] [place] [address] PCP - General 07/04/19 [place] [address] [address] [facility] [place] [address] 11/16/18 Ernie Shaw MD [address] [place] [address] [address] [place] [address] Registered Dental Hygienist Obstetrics and Gynecology 06/10/20 documented as of this encounter
--- OUTSIDE RECORDS SUMMARY | 2024-02-24 20:03 | XMS_ITS | Encounter Summary ---
Author Organization [facility] Healthcare Address [address] [place] [address] Care Team Providers Care Freezer Tunnel Operator Name Role Phone Huseyin Dangelo MD Unavailable [phone] Brian Mon MD Primary Care Provider + Ernie Shaw MD Unavailable [phone] Reason for Visit * Reason Comments Back Pain Pt reports worsening back pain and vaginal pressure. Denies VB or LOF. +FM Encounter Details Date Type Department Care Team (Latest Contact Info) Description 12/17/2020 10:23 PM CDT - 12/18/2020 12:01 AM CDT Hospital Encounter [address] [phone] Crystal Murray MD [address] [facility] [phone] [place] [address] Supervision of high-risk , unspecified trimester (Primary Dx) Discharge Disposition: Discharge to home [...] Reading Time Taken Comments Blood Pressure 124/73 12/17/2020 10:33 PM CDT Pulse 94 12/17/2020 11:40 PM CDT Temperature 36.5 ??C (97.7 ??F) 12/17/2020 10:33 PM C DT Respiratory Rate 18 12/17/2020 10:33 PM CDT Oxygen Saturation 97% 12/17/2020 11:40 PM CDT Inhaled Oxygen Concentration - - Weight - - Height - - Body Mass Index - - documented in this encounter Discharge Diagnoses Diagnosis Supervision of other high risk pregnancies, third trimester - SUPERVISION OF OTHER HIGH RISK PREGNANCIES, THIRD TRIMESTER Other specified related conditions, third trimester - OTHER SPECIFIED RELATED CONDITIONS, THIRD TRIMESTER Dorsalgia, unspecified - DORSALGIA, UNSPECIFIED Pelvic and perineal pain - PELVIC AND PERINEAL PAIN Complete placenta previa nos or without hemorrhage, third trimester - COMPLETE PLACENTA PREVIA NOS OR WITHOUT HEMORRHAGE, THIRD TRIMESTER Other specified diseases and conditions complicating - OTHER SPECIFIED DISEASES AND CONDITIONS COMPLICATING Rheumatoid arthritis, unspecified (HCC) - RHEUMATOID ARTHRITIS, UNSPECIFIED 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) - GLOMERULAR DISEASE IN SYSTEMIC LUPUS ERYTHEMATOSUS Other mental disorders complicating , third trimester - OTHER MENTAL DISORDERS COMPLICATING , THIRD TRIMESTER Anxiety disorder, unspecified - ANXIETY DISORDER, UNSPECIFIED Depression, unspecified - DEPRESSION, UNSPECIFIED Polyhydramnios, third trimester, not applicable or unspecified - POLYHYDRAMNIOS, THIRD TRIMESTER, NOT APPLICABLE OR UNSPECIFIED Diseases of the respiratory system complicating , third trimester - DISEASES OF THE RESPIRATORY SYSTEM COMPLICATING , THIRD TRIMESTER Unspecified asthma, uncomplicated - UNSPECIFIED ASTHMA, UNCOMPLICATED 34 weeks gestation of - 34 WEEKS GESTATION OF Personal history of nicotine dependence - PERSONAL HISTORY OF NICOTINE DEPENDENCE Other lobsterman (current) drug therapy - OTHER CARE HOME (CURRENT) DRUG THERAPY nursing home (current) use of aspirin - CARE HOME (CURRENT) USE OF ASPIRIN nursing home (current) use of systemic steroids - CARE HOME (CURRENT) USE OF SYSTEMIC STEROIDS Allergy status to other antibiotic agents - ALLERGY STATUS TO OTHER ANTIBIOTIC AGENTS Allergy status to penicillin - ALLERGY STATUS TO PENICILLIN Allergy status to other drugs, medicaments and [...] MOUTH DAILY 60 tablet 10/23/2020 1 vit no.[id number] (Classic ) 28 mg iron- 800 mcg tablet Take 1 tablet by mouth daily 1 sertraline (ZOLOFT) 25 mg tablet 10/18/2020 2 valACYclovir (VALTREX) 500 mg tablet TAKE 1 TAB BY MOUTH 3 TIMES DAILY FOR 7 DAYS. 12/03/2019 1 documented as of this encounter Ordered Prescriptions Prescription Sig Dispense Quantity Refills Last Filled Start Date End Date cyclobenzaprine (FLEXERIL) 5 mg tablet Take 1 tablet (5 mg total) by mouth 2 (two) times a day as needed for muscle spasms 6 tablet 12/18/2020 01/03/2021 documented in this encounter Discharge Disposition Disposition Code Departure Means Destination Discharge to home or self care documented in this encounter H&P Notes * Margarita Olea MD - 12/17/2020 10:47 PM CDT Obstetrics H&P Chief Complaint: vaginal pressure and back pain Estimated Date of Delivery: 01/27/21 Provider: RENETTA HPI: Carito Madison is a 30 y.o. female at 34w1d gestation, dated by L=1st presents for vaginal pressure and back pain. She reports the pain worsened a few hours ago. She denies VB and or LOF. She endorses good movement. She denies dysuria and or concerns for STIs. 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 Patient [...] Yes Partners: Male Support System: Supported by family Safe at home: Yes family history includes [...] MEDICATIONS : al & mag hydroxide with ivxnwomjyme-kazynzbtpnvcqti-xpzmbfhmg (MAGIC MOUTHWASH) suspension 1-1- aspirin 81 mg enteric coated tablet ferrous gluconate (ferrous gluconate) 324 mg (37.5 mg of elemental iron) tablet hydrOXYchloroQUINE (PLAQUENIL) 200 mg tablet omeprazole (PriLOSEC) 20 mg capsule ondansetron ODT (ZOFRAN-ODT) 8 mg disintegrating tablet polyethylene glycol (MIRALAX) 17 gram/dose powder predniSONE (DELTASONE) 5 mg tablet vit no.666-[id number]-[id number] (Classic ) 28 mg iron- 800 mcg tablet sertraline (ZOLOFT) 25 mg tablet valACYclovir (VALTREX) 500 mg tablet azithromycin (ZITHROMAX) 250 mg tablet Review of Sys: Negative except per HPI Vitals: Temp: [36.5 ??C (97.7 ??F)] 36.5 ??C (97.7 ??F) Pulse: [100] 100 Resp: [18] 18 BP: (124)/(73) 124/73 Physical Exam: General: NAD, mood appropriate Cardiovascular: Regular rate and rhythm Pulmonary: unlabored breathing Abdomen: Gravid, non-tender Extremities: Warm and well perfused Speculum Exam: no pooling of fluid seen, Nitrizine test is negative, Ferning test is negative, vaginal discharge: moderate amount of white physiologic discharge noted, wet prep results: resulted at bedside: no pathogens and pH 3.5 Cervix: visually closed Monitoring: Baseline: 130 bpm, Variability: Moderate, Accelerations: Present and Decelerations: None Uterine Activity: No contractions seen on toco Interpretation: Reactive Ultrasound: transverse presentation Anterior placenta Previa: Yes Estimated Weight: 2234g, 72nd% by US, date performed 12/06/20 Labs: Lab Results Component Value Date ABORH A Positive 11/29/2020 IDCOOMB Negative 11/29/2020 [id number] Nonreactive 12/06/2020 LABRPR Nonreactive 12/06/2020 GBS Not yet done Assessment and Plan Carito Madison is a 30 y.o. female at 34w1d who presented with vaginal pressure and backpain #back and vaginal pressure -VSS -Urine dipstick: unremarkable -Abdomen benign -SSE: no pooling of fluid seen, no bleeding noted, Nitrizine test is negative, Ferning test is negative, vaginal discharge: moderate amount of white physiologic discharge noted, wet prep results: resulted at bedside: no pathogens and pH 3.5 -SVE: visually closed -Offered to send labs: coags-pt declined lab draw at this time -No e/o PTL. Will send 5mg Flexeril PO to pharmacy. #FWB -Reactive FHR tracing -Endorses good movement -[facility] BSUS: Transverse presentation Plan discussed with Dr. Olea. Okay to d/c home with strict return precautions. Patient reassured and discharged home in stable condition. Has appt on 12/20/20. Anneliese Beckman NP 12/17/20 M Fellow Attestation I have seen and discussed Carito Madison with the IRON PELLET TESTER on 12/18/2020. I have evaluated the patientand reviewed the treatment plan and recommendations. I agree with the findings and the plan of careas documented in the note. Ms. Madison was ruled out for labor. The tracing is reactive, without contractions or irritability. We discussed using flexeril for her musculoskeletal back pain. She endorses overwhelming anxiety, wondering if she is going to spontaneously bleed at home and not make it to [facility]. We talked about our transport system. We talked about when to seek evaluation. We reviewed the reassuring findings from tonights exam. She states she is taking her zoloft. When I asked about increasing her dose, she states she has already done and has been taking 50mg for the last week. We reviewed that again she has an appointment on 12/20. Margarita Olea MD Maternal- Medicine Fellow Cosigned by Roro Sherwood MD at 12/18/2020 2:44 PM CDT Associated attestation - Roro Sherwood MD - 12/18/2020 2:44 PM CDT The resident/fellow saw and examined the patient, and I am in agreement with the plan. I did not personally examine the patient. documented in this encounter Procedure Notes * Anneliese Beckman NP - 12/18/2020 12:33 AM CDT Procedures Monitoring: Baseline: 130 bpm, Variability: Moderate, Accelerations: Present and Decelerations: None Uterine Activity: No contractions seen on toco Interpretation: Reactive KATHRIN Francisco- 12/18/20 Cosigned by Maura Moreno MD at 12/18/2020 10:10 AM CDT * Maura Moreno MD - 12/18/2020 12:01 AM CDT Procedures FHR Baseline: 125 Variability: moderate Accelerations: present Decelerations: absent Contractions: absent Reactive: Yes I have reviewed the NST. Maura Moreno MD documented in this encounter Nursing Notes * Saadia Adame RN - 12/18/2020 12:01 AM CDT Pt presents to [facility] with c/o back pain. States she feels fucking miserable . Pt frequently moving, RN at bedside adjusting efm due to pt movement. Denies VB, LOF, reports frequent movement. Pt concerned baby has had hiccups 5 times today and I reaD that can mean they are being strangled by the umbilical cord. Pt educated extensively, pt verbalized understanding. Sterile spec exam and US by Anneliese DONATO. NST reactive. Pt requests to speak with Dr Moon. Dr Moon at bedside. Pt left without discharge paperwork. Pt then called [facility] and requested to speak with Anneliese DONATO, pt requested flexeril called into her pharmacy. documented in this encounter Plan of Treatment Not on file documented as of this encounter Procedures Procedure Name Priority Date/Time Associated Diagnosis Comments US OB LIMITED IP Routine 12/18/2020 12:05 AM CDT Supervision of high-risk , unspecified trimester POCT URINALYSIS DIPSTICK Routine 12/17/2020 10:53 PM CDT documented in this encounter Results * US Ob Limited (12/18/2020 12:05 AM CDT) Anatomical Region Laterality Modality Abdomen N/A Ultrasound Study GA Study Date Study MANE Working MANE (Source) Feta l Weight (Method) 12/18/2020 01/27/2021 (Alternate MANE Entry) Result Name Value Comments Amniotic fld cm Heart Rate bpm CRL cm Sac Diameter cm Narrative 12/18/2020 12:08 AM CDT [facility] BSUS: transverse presentation us Anneleise Beckman IRON PELLET TESTER IMG OB US PROCEDURES Final Re sult * POCT urinalysis dipstick (12/17/2020 10:53 PM CDT) Color, Urine, POC Yellow Clarity, ur, POC Clear Clear Glucose, ur, POC Negative Negative mg/dL Bilirubin, ur, POC Negative Negative, Small, Moderate, Large Ketones, ur, POC Negative Negative Specific [place], POC 1.020 1.005 - 1.030 Blood, ur, POC Negative Negative pH, ur, POC 6.0 5.0 - 8.0 Protein, ur, POC Negative Negative Urobilinogen, urine, POC 0.2 0.2 - 1.0 mg/dL Nitrite, ur, POC Negative Negative Leukocytes, ur, POC Negative Negative Lot Number [id number] Urine 12/17/2020 10:5 3 PM CDT Anneliese Beckman NP POINT OF CARE TEST ORDERABLES Final Result documented in this encounter Visit Diagnoses Diagnosis Supervision of high-risk , unspecified trimester- Primary Supervision of high-risk , unspecified trimester Generalized [...] 10 mg 10 mg, oral, Once, On 12/18/20 at 0045, For 1 dose documented in this encounter Discontinued Medications Medication Sig Discontinue Reason Start Date End Da te azithromycin (ZITHROMAX) 250 mg tablet 1 12/17/2020 documented as of this encounter Active and Recently Administered Medications Times are shown in CDT. Scheduled Medication Order 12/16/2020 12/17/2020 12/18/2020 cyclobenzaprine (FLEXERIL) tablet 10 mg 10 mg, oral, Once, On 12/18/20 at 0045, For 1 dose documented in this encounter Orders Medications Ordered That Omer ht Not Have Been Administered Count Last Ordered Date First Ordered Date cyclobenzaprine (FLEXERIL) tablet 10 mg 1 1 documented in this encounter Care Teams Freezer Tunnel Operator Relationship Specialty [place] [address] [address] [facility] [place] [address] PCP - General 07/04/19 [place] [address] [address] [place] [address] 11/16/18 Ernie Shaw MD [address] [place] [address] [address] [place] [address] Rn Case Manager Hospice Obstetrics and Gynecology 06/10/20 documented as of this encounter
--- OUTSIDE RECORDS SUMMARY | 2024-02-24 20:03 | XMS_ITS | Encounter Summary ---
Author Organization [facility] Healthcare Address [address] [place] [address] Care Team Providers Care Award Machine Operator Name Role Phone Huseyin Dangelo MD Unavailable [phone] Brian Mon MD Primary Care Provider + Ernie Shaw MD Unavailable [phone] Encounter Details Date Type Department Care Team (Latest Contact Info) Description 12/16/2020 11:25 AM CDT - 12/16/2020 1:15 PM CDT Hospital Encounter [address] [phone] Marilyn Conn MD [address] [facility] [phone] [place] [address] Discharge Disposition: Discharge to home or self [...] Sign Reading Time Taken Comments Blood Pressure 122/65 12/16/2020 11:31 AM CDT Pulse 95 12/16/2020 1:00 PM CDT Temperature 36.8 ??C (98.2 ??F) 12/16/2020 11:31 AM C DT Respiratory Rate 18 12/16/2020 11:31 AM CDT Oxygen Saturation 98% 12/16/2020 1:00 PM CDT Inhaled Oxygen Concentration - - Weight - - Height - - Body Mass Index - - documented in this encounter Discharge Diagnoses Diagnosis Other specified related conditions, third trimester - OTHER SPECIFIED RELATED CONDITIONS, THIRD TRIMESTER Headache, unspecified - HEADACHE, UNSPECIFIED Unspecified abdominal pain - UNSPECIFIED ABDOMINAL PAIN Personal history of nicotine dependence - PERSONAL HISTORY OF NICOTINE DEPENDENCE Acquired absence of other specified parts of digestive tract - ACQUIRED ABSENCE OF OTHER SPECIFIED PARTS OF DIGESTIVE TRACT Other mental disorders complicating , third trimester - OTHER MENTAL DISORDERS COMPLICATING , THIRD TRIMESTER Generalized anxiety disorder - GENERALIZED ANXIETY DISORDER Depression, unspecified - DEPRESSION, UNSPECIFIED related renal disease, third trimester - RELATED RENAL DISEASE, THIRD TRIMESTER 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) - GLOMERULAR DISEASE IN SYSTEMIC LUPUS ERYTHEMATOSUS Chronic kidney disease, unspecified - CHRONIC KIDNEY DISEASE, UNSPECIFIED Rheumatoid arthritis, unspecified (HCC) - RHEUMATOID ARTHRITIS, UNSPECIFIED Diseases of the respiratory system complicating , third trimester - DISEASES OF THE RESPIRATORY SYSTEM COMPLICATING , THIRD TRIMESTER Unspecified asthma, uncomplicated - UNSPECIFIED ASTHMA, UNCOMPLICATED 34 weeks gestation of - 34 WEEKS GESTATION OF detention (current) use of systemic steroids - SNF (CURRENT) USE OF SYSTEMIC STEROIDS moth exterminator (current) use of aspirin - TREND INVESTIGATOR (CURRENT) USE OF ASPIRIN Other fpc (current) drug therapy - OTHER SNF (CURRENT) DRUG THERAPY Allergy status to other drugs, medicaments and biological substances - ALLERGY STATUS TO OTHER DRUGS, MEDICAMENTS AND BIOLOGICAL SUBSTANCES Allergy status to penicillin - ALLERGY STATUS TO PENICILLIN Allergy status to other antibiotic agents - ALLERGY STATUS TO OTHER ANTIBIOTIC AGENTS documented in this encounter Medications at Time of Discharge al & mag hydroxide with simethicone-diphenhy dramine-lidocaine (MAGIC MOUTHWASH) suspension 1-1-1 Swish and swallow 10 mL every 4 (four) hours as needed (oral ulcers) 300 mL 12/09/2020 3 aspirin 81 mg enteric coated tablet Take 81 mg by mouth daily 1 azithromycin (ZITHROMAX) 250 mg tablet 12/04/2020 1 cyclobenzaprine (FLEXERIL) 5 mg tablet Take [...] MOUTH DAILY 60 tablet 10/23/2020 1 vit no.864-tspd-dcrep (Classic ) 28 mg iron- 800 mcg [...] H&P Notes * Alma Genao MD - 12/16/2020 11:45 AM CDT Obstetrics H&P Chief Complaint: SHELTON, Ctx, and failed NST Estimated Date of Delivery: 01/27/21 Provider: RENETTA HPI: Carito Madison is a 30 y.o. female at 34w0d gestation, dated by L=1 who presented with complaints SHELTON, Ctx, and Failed NST. Pt then stated SHELTON resolved upon arrival to room. Reports taking tylenol at 1000. Pain to right side of abd that increased with movement. Her is complicated by complete previa, poly, margina cord insert, lupus, generalized anxiety disorder Patient Denies: [] Contractions [] Shortness of Breath [] Nausea/Vomitting [x] Vaginal Bleeding [] Headache [] Abdominal Pain [x] Leaking of Fluid [] Visual changes [] Decreased Movement OB History Para Term AB Living 3 0 0 0 2 0 SAB TAB Ectopic Multiple Live Births 2 0 0 0 0 # Outcome Date GA Lbr Rojas/2nd Weight Sex Delivery Anes PTL Lv 3 Current 2 SAB 2019 16w0d 1 2017 BEEKEEPER History: No LMP recorded (lmp unknown). Patient [...] MEDICATIONS : al & mag hydroxide with kfmfhlqcewl-zywscwmpslamcjx-wcqxnbuzc (MAGIC MOUTHWASH) suspension 1-1-1 aspirin 81 mg enteric coated tablet azithromycin (ZITHROMAX) 250 mg tablet ferrous gluconate (ferrous gluconate) 324 mg (37.5 mg of elemental iron) tablet hydrOXYchloroQUINE (PLAQUENIL) 200 mg tablet omeprazole (PriLOSEC) 20 mg capsule ondansetron ODT (ZOFRAN-ODT) 8 mg disintegrating tablet polyethylene glycol (MIRALAX) 17 gram/dose powder predniSONE (DELTASONE) 5 mg tablet vit no.491-ywfi-ijhya (Classic ) 28 mg iron- 800 mcg tablet sertraline (ZOLOFT) 25 mg tablet valACYclovir (VALTREX) 500 mg tablet Review of Sys: Negative except per HPI Vitals: Temp: [36.8 ??C (98.2 ??F)] 36.8 ??C (98.2 ??F) Pulse: [110] 110 Resp: [18] 18 BP: (122)/(65) 122/65 Physical Exam: General: NAD, mood appropriate Cardiovascular: Regular rate and rhythm Pulmonary: Clear to ausculation bilaterally Abdomen: Gravid, non-tender Extremities: Warm and well perfused Speculum Exam: cervix poorly visualized but does not appear dilated, no evidence of pooling or bleeding. Negative nitrazine and ferning Cervix: / / deferred d/t previa. Monitoring: Baseline: 145 bpm, Variability: Moderate, Accelerations: Present and Decelerations: None Uterine Activity: No contractions seen on toco Interpretation: Reactive Lab Review Recent Results (from the past 24 hour(s)) POCT urinalysis dipstick Collection Time: 12/16/20 12:01 PM Result Value Ref Range Color, Urine, POC [place] Clarity, ur, POC Clear Clear Glucose, ur, POC Negative Negative mg/dL Bilirubin, ur, POC Negative Negative, Small, Moderate, Large Ketones, ur, POC Negative Negative Specific [place], POC 1.025 1.005 - 1.030 Blood, ur, POC Negative Negative pH, ur, POC 6.0 5.0 - 8.0 Protein, ur, POC Negative Negative Urobilinogen, urine, POC 0.2 0.2 - 1.0 mg/dL Nitrite, ur, POC Negative Negative Leukocytes, ur, POC Negative Negative Lot Number [id number] Labs: Lab Results Component Value Date ABORH A Positive 11/29/2020 IDCOOMB Negative 11/29/2020 [id number] Nonreactive 12/06/2020 LABRPR Nonreactive 12/06/2020 Assessment and Plan Carito Madison is a 30 y.o. female at 34w0d who presented with SHELTON, ctx, and Failed NST. No problems updated. Headache: -No N/V, or visual changes. No photophobia. Not the worst SHELTON ever in life. - Resolved without intervention. -Normotensive -Urine unremarkable . Encouraged increased PO hydration -Precautions reviewed. Contractions -No e/o PTL, UTI. SSE: no evidence of dilation or PROM -No e/o dehydration, however hydrated with po hydration. Urine dip negative -sparse contractions that resolved, patient comfortable. States contractions resolved upon arrival. -Abdomen benign, likely round ligament/musculoskeletal discomforts of . Pain improved withrest and Heat. -Discussed normal physiologic discomforts of . Encouraged tylenol, heat, PG support belt. PTL precautions reviewed. FWB: Reactive NST Plan discussed with Dr. Genao. Dena Campbell MD 12/16/20 [facility] Fellow Attestation I have discussed Carito Madison with the above provider on 12/16/2020. I have reviewed the treatment plan and recommendations. I agree with the findings and the plan of care as documented in the note with the following addendum: Briefly, this is a 30 y.o. at 34w0d with complicated by complete previa, poly, margina cord insert, lupus, generalized anxiety disorder. Patient presented with contractions and reports of a failed NST, however on review of chart, appears that no NSTwas completed at any of our clinical sites. NST reactive and reassuring in the [facility] with no contractions on toco. Patient with no evidence of labor, PPROM, or vaginal bleeding on speculum exam. Patient discharged home for routine follow-up with [facility] on 12/20. Alma Genao MD Maternal- Medicine Fellow Cosigned by Margarita Correa MD at 12/16/2020 4:39 PM CDT Associated attestation - Margarita Correa MD - 12/16/2020 4:39 PM CDT I have reviewed the note below for Carito Madison, and I agree with the documented plan by the resident/fellow/MEKHI. Margarita Correa MD 12/16/2020 documented in this encounter Procedure Notes * Maura Moreno MD - 12/16/2020 1:34 PM CDT Procedures NST @ 34w0d weeks FHR Baseline: 140 Variability: moderate Accelerations: present Decelerations: absent Contractions: absent Reactive: Yes I have reviewed the NST and instructed RN to take the patient off the monitor. Dena Campbell MD I have reviewed the NST and agree with documentation above. Maura Moreno MD documented in this encounter Nursing Notes * Ritika Thayer RN - 12/16/2020 1:53 PM CDT Patient arrived to [facility] stating she had a headache and contractions. Denies bleeding, gush of fluid.Endorses good movement. Patient states headache relieved with tylenol she took prior to presenting to [facility]. No medications given. No contractions noted. Reactive FHT. Speculum exam performed per . NE home Patient left without signing papers documented in this encounter Plan of Treatment Not on file documented as of this encounter Procedures Procedure Name Priority Date/Time Associated Diagnosis Comments POCT URINALYSIS DIPSTICK Routine 12/16/2020 12:01 PM CDT documented in this encounter Results * POCT urinalysis dipstick (12/16/2020 12:01 PM CDT) Color, Urine, POC Migdalia Clarity, ur, POC Clear Clear Glucose, ur, POC Negative Negative mg/dL Bilirubin, ur, POC Negative Negative, Small, Moderate, Large Ketones, ur, POC Negative Negative Specific [place], POC 1.025 1.005 - 1.030 Blood, ur, POC Negative Negative pH, ur, POC 6.0 5.0 - 8.0 Protein, ur, POC Negative Negative Urobilinogen, urine, POC 0.2 0.2 - 1.0 mg/dL Nitrite, ur, POC Negative Negative Leukocytes, ur, POC Negative Negative Lot Number [id number] Urine 12/16/2020 12:0 1 PM CDT [facility] Naima Ivey REEL MAN POINT OF CARE TEST ORDERA BLES Final [...] are shown in CDT. Scheduled Medication Order 12/14/2020 12/15/2020 12/16/2020 prochlorperazine (COMPAZINE) tablet 10 mg 10 mg, oral, Once, On Rachel 12/16/20 at 1230, For 1 dose 1230 (Due) documented in this encounter Orders Medications Ordered That Omer ht Not Have Been Administered Count Last Ordered Date First Ordered Date prochlorperazine (COMPAZINE) tablet 10 mg 1 12/16/2020 documented in this encounter Care Teams Award Machine Operator Relationship Specialty [place] [address] [address] [place] [id number] PCP - General 07/04/19 [place] [address] [address] [place] [id number] 11/16/18 Ernie Shaw MD [address] [place] [address] [address] [place] [id number] Warp Tension Tester Obstetrics and Gynecology 06/10/20 documented as of this encounter
--- OUTSIDE RECORDS SUMMARY | 2024-02-24 20:03 | XMS_ITS | Encounter Summary ---
Author Organization [facility] Healthcare Address [address] [place] [address] Care Team Providers Care Refinery Pipeline Operator Name Role Phone Huseyin Dangelo MD Unavailable [phone] Brian Mon MD Primary Care Provider + Ernie Shaw MD Unavailable [phone] Encounter Details Date Type Department Care Team (Late st Contact Info) Description 12/13/2020 8:45 AM CDT Lab [facility] [address] [place] [address] Outpatient Health [place], [place] [id number] Carolina Delarosa MD [address] [place] [address] [place] [address] [id number] Other systemic lupus erythematosus with other organ [...] Encounter Note - Carolina Delarosa MD - 12/13/2020 12:50 PM CDT She has a few red and white cells in her urine but nothing too concerning, if she has symptoms of UTI to d/w Ob it was not reflexed to culture Otherwise labs stable documented in this encounter Plan of Treatment Not on file documented as of this encounter Procedures Procedure Name Priority Date/Time Associated Diagnosis Comments ANTI-DOUBLE STRANDED DNA ANTIBODIES Routine 12/13/2020 8:44 AM CDT Other systemic lupus erythematosus with other organ involvement (HCC) EGFR Routine 12/13/2020 8:44 AM CDT Other systemic lupus erythematosus with other organ involvement (HCC) DIFFERENTIAL AUTO Routine 12/13/2020 8:4 4 AM CDT Other systemic lupus erythematosus with other organ involvement (HCC) C4 COMPLEMENT Routine 12/13/2020 8:44 AM CDT Other systemic lupus erythematosus with other organ involvement (HCC) URINALYSIS AND REFLEX TO MICROSCOPIC AND CULTURE Routine 12/13/2020 8:44 AM CDT Other systemic lupus erythematosus with other organ involvement (HCC) CBC WITH AUTO DIFFERENTIAL Routine 12/13/2020 8:44 AM CDT Other systemic lupus erythematosus with other organ involvement (HCC) PROTEIN / CREATININE RATIO, URINE, RANDOM Routine 12/13/2020 8:44 AM CDT Other systemic lupus erythematosus with other organ involvement (HCC) URINALYSIS, MICROSCOPIC ONLY Routine 12/13/2020 8:44 AM CDT Other systemic lupus erythematosus with other organ involvement (HCC) ERYTHROCYTE SEDIMENTATION RATE Routine 12/13/2020 8:44 AM CDT Other systemic lupus erythematosus with other organ involvement (HCC) C3 COMPLEMENT Routine 12/13/2020 8:44 AM CDT Other systemic lupus erythematosus with other organ involvement (HCC) CRP (ACUTE PHASE) Routine 12/13/2020 8:4 4 AM CDT Other systemic lupus erythematosus with other organ involvement (HCC) COMPREHENSIVE METABOLIC PANEL Routine 12/13/2020 8:44 AM CDT Other systemic lupus erythematosus with other organ involvement (HCC) documented in this encounter Results * (ABNORMAL) eGFR (12/13/2020 8:44 AM CDT) [facility] eGFR >90(H) 90 - 130 mL/min/1.7 3 m2 [facility] Comment: Interpretive Data Reference Interval Normal ?>/= [...] interpretive data was last reviewed 2020 Blood 12/13/2020 8:44 AM CDT 12/13/2020 9:34 AM CDT Carolina Delarosa MD LAB BLOOD ORDERABLES Final Result Performing Organization Address [facility] de Phone Number [facility] [place] [address] * (ABNORMAL) Urinalysis, microscopic only (12/13/2020 8:44 AM CDT) WBC, ur 6-10(A) 0 - 5 /HPF [facility] RBC, ur 6-10(A) 0 - 2 /HPF [facility] Epithelial cells, squamous, ur 1-5 0 - 5 /HPF [facility] Bacteria, ur 4+(A) [facility] Mucous, ur Present(A) [facility] Culture Reflex Comment Reflex conditions for urine culture (WBC >10) not met. [facility] Urine 12/13/2020 8:44 AM CDT 12/13/2020 9:25 AM CDT Carolina Delarosa MD LAB URINE ORDERABLES Final Result Performing Organization Address [facility] de Phone Number [facility] [place] [address] * (ABNORMAL) Differential, auto (12/13/2020 8:44 AM CDT) Neutrophil abs 7.9(H) 1.7 - 6.5 K/cumm [facility] Imm gran abs 0.1 0.0 - 0.1 K/cumm [facility] Lymphocyte abs 1.3 0.8 - 3.3 K/cumm [facility] Monocyte abs 0.5 0.2 - 0.8 K/cumm [facility] Eosinophil abs 0.1 0.0 - 0.5 K/cumm [facility] Basophil abs 0.0 0.0 - 0.1 K/cumm [facility] Neutrophil pct 79.9 % [facility] Comment: Interpretive Data Percent cell count reference ranges are not reported, since discordance with absolute values may lead to misinterpretation of CBC data. Current Interpretive Data was last revised on 2017. Imm gran pct 0.8 % [facility] Comment: Interpretive Data Percent cell count reference ranges are not reported, since discordance with absolute values may lead to misinterpretation of CBC data. Current Interpretive Data was last revised on 2017. Lymphocyte pct 12.9 % [facility] Comment: Interpretive Data Percent cell count reference ranges are not reported, since discordance with absolute values may lead to misinterpretation of CBC data. Current Interpretive Data was last revised on 2017. Monocyte pct 5.2 % [facility] Comment: Interpretive Data Percent cell count reference ranges are not reported, since discordance with absolute values may lead to misinterpretation of CBC data. Current Interpretive Data was last revised on 2017. Eosinophil pct 1.0 % [facility] Comment: Interpretive Data Percent cell count reference ranges are not reported, since discordance with absolute values may lead to misinterpretation of CBC data. Current Interpretive Data was last revised on 2017. Basophil pct 0.2 % [facility] Comment: Interpretive Data Percent cell count reference ranges are not reported, since discordance with absolute values may lead to misinterpretation of CBC data. Current Interpretive Data was last revised on 2017. Blood 12/13/2020 8:44 AM CDT 12/13/2020 9:25 AM CDT us Carolina Delarosa MD LAB BLOOD ORDERABLES Final Result [facility] Department [place] [address] * (ABNORMAL) CBC with auto differential (12/13/2020 8:44 AM CDT) WBC 9.9 3.8 - 9.9 K/cumm [facility] Hgb 10.6(L) 11.9 - 15.5 g/dL [facility] Hct 33.5(L) 35.6 - 45.5 % [facility] Plt 218 150 - 400 K/cumm [facility] MPV 9.7 9.1 - 12.3 fL [facility] RBC 3.78(L) 3.90 - 5.20 M/cumm [facility] MCV 88.6 81.3 - 96.4 fL [facility] MCH 28.0 27.1 - 33.3 pg [facility] MCHC 31.6(L) 32.3 - 35.7 g/dL [facility] RDW CV 19.3(H) 11.1 - 14.9 % [facility] RDW SD 62.7(H) 35.7 - 48.1 fL [facility] NRBC abs 0.00 0.00 - 0.01 K/cumm [facility] Blood 12/13/2020 8:44 AM CDT 12/13/2020 9:25 AM CDT us Carolina Delarosa MD LAB BLOOD ORDERABLES Final Result [facility] Department [place] [address] * (ABNORMAL) Comprehensive metabolic panel (12/13/2020 8:44 AM CDT) Sodium 138 135 - 145 mmol/L [facility] Potassium, pl 3.6 3.3 - 4.9 mmol/L [facility] Chloride 105 97 - 110 mmol/L [facility] CO2 22 22 - 32 mmol/L [facility] Anion gap 11 2 - 15 mmol/L [facility] BUN 5(L) 8 - 25 mg/dL [facility] Creatinine 0.48(L) 0.60 - 1.10 mg/dL [facility] Glucose 106 70 - 199 mg/dL [facility] Comment: Interpretive Data Fasting glucose >/= 126 [...] 2017. Calcium 9.4 8.5 - 10.3 mg/dL [facility] Bilirubin, total 0.2 0.1 - 1.2 mg/dL [facility] Protein, pl 6.6 6.5 - 8.5 g/dL [facility] Albumin 3.4(L) 3.5 - 5.0 g/dL [facility] Alk phos 91 40 - 130 Units/L [facility] ALT 19 7 - 45 Units/L [facility] AST 24 10 - 45 Units/L [facility] Blood 12/13/2020 8:44 AM CDT 12/13/2020 9:25 AM CDT us Carolina Delarosa MD LAB BLOOD ORDERABLES Final Result [facility] [place] [place] [address] * C3 complement (12/13/2020 8:44 AM CDT) Complement C3 150.0 90.0 - 180.0 mg/dL [facility] Blood 12/13/2020 8:44 AM CDT 12/13/2020 9:25 AM CDT Carolina Delarosa MD LAB BLOOD ORDERABLES Final Result [facility] [place] [place] [address] * CRP (acute phase) (12/13/2020 8:44 AM CDT) CRP 7.9 <=10.0 mg/L [facility] Blood 12/13/2020 8:44 AM CDT 12/13/2020 9:25 AM CDT Carolina Delarosa MD LAB BLOOD ORDERABLES Final Result Performing Organization Address [facility] Co de Phone Number [facility] Department [place] [address] * Anti-double stranded DNA antibodies (12/13/2020 8:44 AM CDT) Pathologist [facility] dsDNA Ab 4.0 <=4.0 IUnits/mL [facility] Comment: Interpretive Data Negative: < or = 4 IUnits/mL Indeterminate: 5 - 9 IUnits/mL Positive: > or = 10 IUnits/mL Current interpretive data was last revised on 2016. Blood 12/13/2020 8:44 AM CDT 12/13/2020 9:25 AM CDT Carolina Delarosa MD LAB BLOOD ORDERABLES Final Result Performing Organization Address [facility] Co de Phone Number [facility] Department [place] [address] * (ABNORMAL) Erythrocyte sedimentation rate (12/13/2020 8:44 AM CDT) [facility] Erythrocyte sedimentation rate 35(H) 1 - 20 mm/hr [facility] Blood 12/13/2020 8:44 AM CDT 12/13/2020 9:25 AM CDT Carolina Delarosa MD LAB BLOOD ORDERABLES Final Result Performing Organization Address City/[facility] Co de Phone Number [facility] [place] [address] * (ABNORMAL) Urinalysis reflex to microscopic and culture Urine (12/13/2020 8:44 AM CDT) Color, ur Yellow Yellow [facility] Clarity, ur Cloudy(A) Clear [facility] Specific gravity, ur 1.018 1.003 - 1.030 [facility] pH, urine 6 [facility] Protein, ur ql 1+(A) Negative [facility] Glucose, ur ql Negative Negative [facility] Ketones, ur Negative Negative [facility] Bilirubin, ur Negative Negative [facility] Blood, ur Negative Negative [facility] Urobilinogen, ur <2.0 <2.0 mg/dL [facility] Nitrite, ur Negative Negative [facility] Leukocyte esterase, ur Negative Negative [facility] UA reflex comment Reflex to microscopic UA will be performed. [facility] Urine 12/13/2020 8:44 AM CDT 12/13/2020 9:25 AM CDT Narrative [facility] - 12/13/2020 9:30 AM CDT ?? Urine pH is affected by diet, medications, systemic acid-base disturbances, and renal tubular function. ??pH may affect urinary stone formation. ??For example, urine pH below 6.0 may help reduce the tendency for calcium phosphate stones and pH greater than 6.0 may reduce the tendency for uric acid stone formation. Source: [facility] [employer]. Last revised 03-08-2017 Carolina Delarosa MD LAB MICROBIOLOGY - GENERAL ORDERABLES Final Result Performing Organization Address [facility] Co de Phone Number [facility] Department [place] [address] * C4 complement (12/13/2020 8:44 AM CDT) Complement C4 21.1 10.0 - 40.0 mg/dL [facility] Blood 12/13/2020 8:44 AM CDT 12/13/2020 9:25 AM CDT Carolina Delarosa MD LAB BLOOD ORDERABLES Final Result Performing Organization Address [facility] Co de Phone Number [facility] Department [place] [address] * Protein / creatinine ratio, urine, random (12/13/2020 8:44 AM CDT) Protein, ur, quant 14.3 mg/dL [facility] Comment: Interpretive Data No reference range established. Current interpretive data was last revised 2018. Creatinine Ur 142.0 mg/dL [facility] Comment: Interpretive Data No reference range established. Current interpretive data was last revised 2018. Protein/creatinin e ratio 100.7 0.0 - 180.0 mg/g CR [facility] Urine 12/13/2020 8:44 AM CDT 12/13/2020 9:25 AM CDT us Carolina Delarosa MD LAB URINE ORDERABLES Final Result [facility] Department [place] [address] documented in this encounter Visit Diagnoses Diagnosis Other systemic lupus erythematosus with other organ involvement (HCC) documented in this encounter Care Teams Refinery Pipeline Operator Relationship Specialty [place] [id number] [address] [place] [id number] PCP - General 07/04/19 [place] [id number] [address] [facility] [place] [address] 11/16/18 Ernie Shaw MD [address] [place] [address] DR [address]UG[address] [place] [id number] Community Service Manager Obstetrics and Gynecology 06/10/20 documented as of this encounter
--- OUTSIDE RECORDS SUMMARY | 2024-02-24 20:03 | XMS_ITS | Encounter Summary ---
Author Organization [facility] Healthcare Address [address] [place] [address] Care Team Providers Care Coat Operator Insulator Name Role Phone Huseyin Dangelo MD Unavailable [phone] Brian Mon MD Primary Care Provider + Ernie Shaw MD Unavailable [phone] Reason for Visit * Reason Onset Date Comments Outgoing Call 12/14/2020 Follow-up telephone call to [facility] admit on 12/13/2020 Encounter Details Date Type Department Care Team (Late st Contact Info) Description 12/14/[address] [phone] Violette Ludwig RN Outgoing Call (Follow-up telephone call to [facility] admit on 12/13/2020) Social History Tobacco Use Types Packs/Day Years [...] Telephone Encounter - Violette Ludwig RN - 12/14/2020 10:49 AM CDT 1043: Contacted patient by telephone as follow-up call to [facility] admit on 12/13/2020 for contractions.Patient states she is doing okay. She is drinking lots of water - encouraged to continue doing so. She is also resting a lot today. Her baby is moving normally. Denies any vaginal bleeding, unusual di scharge, gush of fluid, or constant leaking of fluid. Reports contractions as being a few in an hour. She is eating without difficulty. She received her discharge instructions and does not have any questions about them. She did not receive any prescriptions. Her next appointment is 12/16/2020. documented in this encounter Plan of Treatment Not on file documented as of this encounter Visit Diagnoses Not on filedocumented in this encounter Care Teams Coat Operator Insulator Relationship Specialty [place] [id number] [address] [place] [id number] PCP - General 07/04/19 [place] [address] [address] A[address]USTINE [facility] [place] [address] 11/16/18 Ernie Shaw MD [address] [place] [address] [address] [place] [phone] History Department Chair Obstetrics and Gynecology 06/10/20 documented as of this encounter
--- OUTSIDE RECORDS SUMMARY | 2024-02-24 20:03 | XMS_ITS | Encounter Summary ---
Author Organization [facility] Healthcare Address [address] [place] [address] Care Team Providers Care Natural Gas Treating Unit Operator Name Role Phone Huseyin Dangelo MD Unavailable [phone] Brian Mon MD Primary Care Provider + Ernie Shaw MD Unavailable [phone] Encounter Details Date Type Department Care Team (Late st Contact Info) Description 12/28/2020 9:03 AM CDT Anesthesia Event [facility] Anesthesia 1 [place] [address] Amy Del Toro MD [address] [place] [address] Shima Kasper MD PhD [address] [place] [address] Anesthesia Record Procedure Summary Procedure Name Responsible Anesthesiologist Anesthesia Start Time Anesthesia Stop Time Labor Consult Events No events on file. Meds * Agents No agents on file. * Blood No blood administrations on file. Lines, Drains, and Airways No LDAs on file. documented in this encounter Social History Tobacco [...] of this encounter OR Notes * Anesthesia Preprocedure Evaluation - Amy Del Toro MD - 12/15/2020 10:15 AM CDT Images from the original note were not included. Anesthesia Evaluation Carito Madison is a 30 y.o. female * No surgery found * HISTORY HPI Ms. Carito Madison is a 30 y/o 33w6d with a past medical history of SLE managed on hydroxychloroquine and prednisone c/b secondary adrenal insufficiency, seizures, and generalized anxiety disorder. Her is complicated by anterior complete placenta previa with 4 bleeds during the pr egnancy as well as marginal cord insertion, with planned primary for 12/30 (at that time patient will be 36w). Patient also reports hemorrhaging after a D&C she had for one of her past miscarriages, unclear etiology. Of note, IV access has routinely been a challenge for the patient, requiring ultrasound guidance for vascular access. Patient is also requesting that residents not be involved in her care if possible. Plan discussed with Dr. Cerda. Patient has no contraindications for neuraxial anesthesia. We willplan for a spinal anesthetic as this is a primary . We will to type and cross for two units on arrival. We will also plan to get two IVs due to history of difficult vascular access and potential to bleed with anterior placenta previa. Patient was informed that we will attempt to honor her request for residents to not be involved in her care, but this is a teaching hospital and that it may not be possible given staffing constraints. Patient voiced understanding. Of note, patient reports significant side effects with Reglan and does NOT want to receive it for PONV prophylaxis. Discussed risks, benefits, alternatives to neuraxial anesthesia, including but not limited to PDPH,risk of prolonged or permanent numbness/weakness/paralysis, nausea, aspiration, bleeding, infection, possible need to convert to GETA. Pt voiced understanding and acceptance of risks and a desire to proceed with labor neuraxial anesthesia. We also discussed the option of preoperative low-thoracic epidural for postoperative pain control if she likely needs a hysterectomy. 12/27/2020 Update: Spoke to patient regarding her questions about stress-dose steroids. Patient is currently taking 7.5mg prednisone daily and has been on chronic steroids for ~2 years. Patient expresses concern about receiving 200mg hydrocortisone on DOS as previously recommended by her Director Of Government Sales Dr. Fernandez. We touched base with Dr. Fernandez, who is okay with patient receiving 100mg or 150mg instead with subsequent taper. Past Medical History Information obtained from: patient and chart. Neurological + Seizures (initially thought to be provoked by escitalopram. However, patient canceled her follow up appointment with neurology, is not taking keppra as was recommended. 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 Cardiovascular Cardiac system: negative Respiratory Respiratory system: negative Hepatic / Heme + History of anemia - iron deficiency Gastrointestinal + GERD Renal / + Renal disease (in the setting of lupus nephritis. Current CrCl is normal. ) - CKD Musculoskeletal/Pain + Chronic pain (with ) - back pain. + Headaches (holocephalic, recently with , no N/V, visual changes, photophobia. ) Endocrine / Other + Rheumatological disease (See HPI) - systemic lupus erythematosus. Diabetes: Functional Capacity Functional capacity: 4-6 METs Day of Surgery assessments + Possibility of assessed - known to be . Review of Systems + chronic pain (with ) Pertinent negatives: productive cough; SOB; recent cold/flu; bleeding problems; muscle weakness; numbness/tingling; nausea and chipped/loose teeth Patient Active Problem List Diagnosis ??? Laceration of flexor muscle, fascia and tendon of right little finger at wrist and hand level, initial encounter ??? Cough ??? Lupus (CMS/HCC) (HCC) ??? Miscarriage ??? Tachycardia ??? Nausea and vomiting ??? Epigastric pain ??? Gastroesophageal reflux disease ??? Diarrhea ??? Abdominal pain ??? Liver lesion ??? BMI 29.0-29.9,adult ??? Nausea with vomiting ??? AP (abdominal pain) ??? Epilepsy undetermined as to focal or generalized (CMS/HCC) (HCC) ??? Microcytic anemia ??? Joint pain ??? Anti-INSPECTOR PACKAGER antibodies present ??? Adrenal insufficiency (CMS/HCC) (HCC) ??? Bilateral chronic serous otitis media ??? Right carpal tunnel syndrome ??? Secondary adrenal insufficiency (CMS/HCC) (HCC) ??? Supervision of high-risk , unspecified trimester ??? Generalized anxiety disorder ??? Attention deficit hyperactivity disorder (ADHD), combined type ??? Marginal insertion of umbilical cord affecting management of mother in second trimester ??? Placenta previa specified as without hemorrhage in second trimester ??? Polyhydramnios in third trimester, not applicable or unspecified fetus ??? Rectal bleeding ??? Anemia during in third trimester Past Medical History: Diagnosis Date ??? Anemia [...] Date Provider al & mag hydroxide with lsjiunnnosu-pjwxozctallybxu-zxqatejah (MAGIC MOUTHWASH) suspension 1-1-1 12/09/20 -- Carolina Delarosa MD Swish and swallow 10 mL every 4 (four) hours as needed (oral ulcers) aspirin 81 mg enteric coated tablet -- -- Issi Sheffield MD azithromycin (ZITHROMAX) 250 mg tablet 12/04/20 -- Isis Sheffield MD ferrous gluconate (ferrous gluconate) 324 mg (37.5 [...] mg capsule 06/21/19 -- Isis Sheffield MD ondansetron ODT (ZOFRAN-ODT) 8 mg disintegrating tablet 08/16/20 -- Isis Sheffield MD polyethylene glycol (MIRALAX) 17 gram/dose powder 08/24/20 -- Isis Sheffield MD predniSONE (DELTASONE) 5 mg tablet 10/23/20 -- Francois Fernandez MD TAKE 2 TABLETS(10 MG) BY MOUTH DAILY vit no.473-bjvc-vqocc (Classic ) 28 mg iron- 800 mcg tablet -- -- Isis Sheffield MD sertraline (ZOLOFT) 25 mg tablet 10/18/20 -- Isis Sheffield MD valACYclovir (VALTREX) 500 mg tablet 12/03/19 -- Isis Sheffield MD Current Outpatient Medications: ? ? al & mag hydroxide with shpzpnvqmpn-tbdxqmzbmfpjvrq-vbbpfkfpf (MAGIC MOUTHWASH) suspension -1- ??? aspirin 81 mg enteric coated tablet ??? azithromycin (ZITHROMAX) 250 mg tablet ??? ferrous gluconate (ferrous gluconate) 324 mg (37.5 mg of elemental iron) tablet ??? hydrOXYchloroQUINE (PLAQUENIL) 200 mg tablet ??? omeprazole (PriLOSEC) 20 mg capsule ??? ondansetron ODT (ZOFRAN-ODT) 8 mg disintegrating tablet ??? polyethylene glycol (MIRALAX) 17 gram/dose powder ??? predniSONE (DELTASONE) 5 mg tablet ??? vit no.[id number]-smuoo (Classic ) 28 mg iron- 800 mcg tablet ??? sertraline (ZOLOFT) 25 mg tablet ??? valACYclovir (VALTREX) 500 mg tablet Social History Tobacco Use Smoking Status Former Smoker ??? Quit date: 12/28/2018 ??? Years since quittin.9 Smokeless Tobacco Never Used Substance and Sexual Activity Alcohol Use Yes Comment: occasionally Substance and Sexual Activity Drug Use Not Currently ??? Types: Marijuana Family History Problem Relation Age of Onset ??? Gout Mother ??? Diabetes Mother ??? Hypertension Mother ??? Heart disease Father ??? Stroke Father ??? Colon cancer Other There were no vitals filed for this visit. PT: 11/29/2020: 10.8 sec INR: 11/29/2020: 1.0 APTT: 11/29/2020: 26 sec (L) Hgb A1C: No results found for requested labs within last 720 hours. CBC RBC: 12/13/2020: 3.78 M/cumm (L) RDW: No results found for requested labs within last 720 hours. MCHC: 12/13/2020: 31.6 g/dL (L) MCH: 12/13/2020: 28.0 pg MCV: 12/13/2020: 88.6 fL Hct: 12/13/2020: 33.5 % (L) Hgb: 12/13/2020: 10.6 g/dL (L) WBC: 12/13/2020: 9.9 K/cumm MPV: 12/13/2020: 9.7 fL Platelets: 12/13/2020: 218 K/cumm RDW CV: 12/13/2020: 19.3 % (H) RDW Sd: 12/13/2020: 62.7 fL (H) BMP Glucose: 12/13/2020: 106 mg/dL Calcium: 12/13/2020: 9.4 mg/dL Sodium: 12/13/2020: 138 mmol/L Potassium: 12/13/2020: 3.6 mmol/L CO2: 12/13/2020: 22 mmol/L Chloride: 12/13/2020: 105 mmol/L BUN: 12/13/2020: 5 mg/dL (L) Creatinine: 12/13/2020: 0.48 mg/dL (L) documented in this encounter Miscellaneous Notes * Addendum Note - Amy Del Toro MD - 12/28/2020 9:03 AM CDT Addendum created 12/28/20902 by Amy Del Toro MD Clinical Note Signed documented in this encounter Plan of Treatment Not on file documented as of this encounter Visit Diagnoses Not on filedocumented in this encounter Care Teams Natural Gas Treating Unit Operator Relationship Specialty [place] [address] [address] [place] [address] PCP - General 07/04/19 [place] [address] [address] [address] 11/16/18 Ernie Shaw MD [address] [facility] [address] [place] [address] Calculator Operator Obstetrics and Gynecology 06/10/20 documented as of this encounter
--- OUTSIDE RECORDS SUMMARY | 2024-02-24 20:03 | XMS_ITS | Encounter Summary ---
Author Organization [facility] Healthcare Address [address] [place] [address] Care Team Providers Care Microsoft Exchange Administrator Name Role Phone Huseyin Dangelo MD Unavailable [phone] Brian Mon MD Primary Care Provider + Ernie Shaw MD Unavailable [phone] Reason for Referral * Diagnostic Imaging (Routine) [...] Test Iris Bird MD Phone: tel: fax: [facility] (All Locations) Referral ID Status Reason Start Date Expiration Date V isits Requested Visits Authorized [id number] Canceled 12/06/2020 01/05/2022 5 5 Reason for [...] Test Iris Bird MD Phone: tel: fax: [facility] (All Locations) Referral ID Status Reason Start Date Expiration Date V isits Requested Visits Authorized [id number] Canceled 12/06/2020 01/05/2022 5 5 Encounter Details Date Type Department Care Team (Latest Contact Info) Description 12/20/2020 7:43 AM CDT - 12/20/2020 11:59 PM CDT Hospital Encounter [facility] for Out[facility] - Ultrasound [address] [facility], 7th Floor, [address] [place] [address] Iris Bird MD [address] [place] [phone] [place], [place] [id number] Tachycardia; Supervision of high-risk , unspecified trimester; [...] MOUTH DAILY 60 tablet 10/23/2020 1 vit no.487-mqko-sxqvd (Classic ) 28 mg iron- 800 mcg [...] TEST Schedule Routine, Read Routine (OP Routine) 12/20/2020 7:43 AM CDT Tachycardia Supervision of high-risk , unspecified trimester Polyhydramnios in third trimester, not applicable or unspecified fetus Placenta previa specified as without hemorrhage in second trimester Marginal insertion of umbilical cord affecting management of mother in second trimester documented in this encounter Results * US Biophysical Profile WO Test (12/20/2020 7:43 AM CDT) Fetus# Fetus1 VIEWPOINT Placenta Details anterior, Previa-yes, no placental masses VIEWPOINT Presentation Transverse Lie VIEWPOINT Anatomical Region Laterality Modality N/A Ultrasound 12/20/2020 7:47 AM CDT us Iris Bird MD IMG [...] trimester documented in this encounter Care Teams Microsoft Exchange Administrator Relationship Specialty [place] [address] [address] [place] [address] PCP - General 07/04/19 [place] [address] [address] [place] [address] 11/16/18 Ernie Shaw MD [address] [facility] [address] [place] [address] Double End Tenoner Setter Obstetrics and Gynecology 06/10/20 documented as of this encounter
--- OUTSIDE RECORDS SUMMARY | 2024-02-24 20:03 | XMS_ITS | Encounter Summary ---
Author Organization [facility] Healthcare Address [address] [place] [address] Care Team Providers Care Clinical Application Consultant Name Role Phone Huseyin Dangelo MD Unavailable [phone] Brian Mon MD Primary Care Provider + Ernie Shaw MD Unavailable [phone] Reason for Referral * Diagnostic Imaging (Routine) [...] Test Iris Bird MD Phone: tel: fax: [facility] (All Locations) Referral ID Status Reason Start Date Expiration Date V isits Requested Visits Authorized [id number] Canceled 12/06/2020 01/05/2022 5 5 Reason for [...] Test Iris Bird MD Phone: tel: fax: [facility] (All Locations) Referral ID Status Reason Start Date Expiration Date V isits Requested Visits Authorized [id number] Canceled 12/06/2020 01/05/2022 5 5 Encounter Details Date Type Department Care Team (Latest Contact Info) Description 12/13/2020 8:57 AM CDT - 12/13/2020 7:21 PM CDT Hospital Encounter [facility] Center for Outpatient Health - Ultrasound [address] [facility], 7th Floor, [address] [place] [address] Iris Bird MD [address] [place] [phone] [place], [place] [id number] Tachycardia; Supervision of high-risk , unspecified trimester; [...] MOUTH DAILY 60 tablet 10/23/2020 1 vit no.[id number] (Classic ) 28 mg iron- 800 mcg [...] TEST Schedule Routine, Read Routine (OP Routine) 12/13/2020 8:57 AM CDT Tachycardia Supervision of high-risk , unspecified trimester Polyhydramnios in third trimester, not applicable or unspecified fetus Placenta previa specified as without hemorrhage in second trimester Marginal insertion of umbilical cord affecting management of mother in second trimester documented in this encounter Results * US Biophysical Profile WO Test (12/13/2020 8:57 AM CDT) Fetus# Fetus1 VIEWPOINT Placenta Details anterior, Previa-yes VIEWPOINT Presentation Transverse Lie VIEWPOINT Anatomical Region Laterality Modality N/A Ultrasound 12/13/2020 9:02 AM CDT us Iris Bird MD IMG [...] trimester documented in this encounter Care Teams Clinical Application Consultant Relationship Specialty [place] [address] [address] [place] [address] PCP - General 07/04/19 [place] [address] [address] [place] [address] 11/16/18 Ernie Shaw MD [address] [place] [address] [address] [place] [address] Social Services Specialist Obstetrics and Gynecology 06/10/20 documented as of this encounter
--- OUTSIDE RECORDS SUMMARY | 2024-02-24 20:03 | XMS_ITS | Encounter Summary ---
Author Organization [facility] Healthcare Address [address] [place] [address] Care Team Providers Care Food And Beverage Attendant Name Role Phone Huseyin Dangelo MD Unavailable [phone] Brian Mon MD Primary Care Provider + Ernie Shaw MD Unavailable Reason for Visit * Reason Onset Date Comments Dizziness 12/02/2020 patient stated t hat she was here for iron infusion yesterday morning and about 330 today she developed dizziness and wanted to know if it was related to her iron infusion. Spoke with Dr. Genao and advised patient to take benedryl 25mg and if she develops any other symptoms or does not improve to present to [facility] for further evaluation. Patient verbalizes understanding. Encounter Details Date Type Department Care Team (Late st Contact Info) Description 12/02/2020 Telephone [facility] [address] [place] [address] Marilyn Villeda RN Dizziness (patient stated that she was here for iron infusion yesterday morning and about 330 today she developed dizziness and wanted to know if it was related to her iron infusion. Spoke with Dr. Genao and advised patient to take benedryl 25mg and if she develops any other symptoms or does not improve to present to [facility] for further evaluation. Patient verbalizes understanding. ) Social History Tobacco Use Types Packs/Day [...] as of this encounter Progress Notes * Marilyn Villeda RN - 12/02/2020 4:37 PM CDT Patient stated that she was here for iron infusion yesterday morning and about 330 today she developed dizziness and wanted to know if it was related to her iron infusion. ??Spoke with Dr. Genao and advised patient to take benedryl 25mg and if she develops any other symptoms or does not improve to present to [facility] for further evaluation. ??Patient verbalizes understanding documented in this encounter Plan of Treatment Not on file documented as of this encounter Visit Diagnoses Not on filedocumented in this encounter Care Teams Food And Beverage Attendant Relationship Specialty [place] [address] [address] [facility] [place] [address] PCP - General 07/04/19 [place] [address] [address] [facility] [place] [address] 11/16/18 Ernie Shaw MD [address] [place] [address] [address] [facility] [place] [address] Customer Service Associate Obstetrics and Gynecology 06/10/20 documented as of this encounter
--- OUTSIDE RECORDS SUMMARY | 2024-02-24 20:03 | XMS_ITS | Encounter Summary ---
Author Organization [facility] Address [address] [place] [address] Phone Care Team Providers Care Hospital Scientist Name Role Phone Huseyin Dangelo MD Unavailable Brian Mon MD Primary Care Provider + Ernie Shaw MD Unavailable [phone] Encounter Details Date Type Department Care Team (Late st Contact Info) Description 12/09/2020 Telephone [facility] Maternal- Medicine [address] [facility] 7th Floor [address] [place] [address] Anh Marin, PRO Social History Tobacco Use Types [...] Encounter - Anh Marin RN - 12/09/2020 10:16 AM CDT Call made to [facility] RN to make aware advised pt. To seek evaluation for lupus flare. Aware pt. Has NSTtoday and advised to have this done while being evaluated at women's assessment. documented in this encounter Plan of Treatment Not on file documented as of this encounter Visit Diagnoses Not on filedocumented in this encounter Care Teams Hospital Scientist Relationship Specialty [place] [address] [address] [facility] [place] [address] PCP - General 07/04/19 [place] [address] [address] [facility] [place] [address] 11/16/18 Ernie Shaw MD [address] [place] [address] [address] [place] [address] Recycling Manager Obstetrics and Gynecology 06/10/20 documented as of this encounter
--- OUTSIDE RECORDS SUMMARY | 2024-02-24 20:03 | XMS_ITS | Encounter Summary ---
Author Organization [facility] Healthcare Address [address] [place] [address] Care Team Providers Care Vineyard Supervisor Name Role Phone Huseyin Dangelo MD Unavailable [phone] Brian Mon MD Primary Care Provider + Ernie Shaw MD Unavailable [phone] Reason for Referral * Cardiology (Routine) - Closed Specialty Diagnoses / Procedures Referred By Contac t Referred To Contact Diagnoses Tachycardia Procedures ECG 12 lead Iris Bird MD Phone: tel: fax: [address] [phone] Referral ID Status Reason Start Date Expiration Date Visits Re quested Visits Authorized [id number] Closed 12/06/2020 01/05/2022 1 1 Reason for Visit * Cardiology (Routine) - Closed Specialty Diagnoses / Procedures Referred By Jud freeman Referred To Contact Diagnoses Tachycardia Procedures ECG 12 lead Iris Bird MD Phone: tel: fax: [address] [phone] Referral ID Status Reason Start Date Expiration Date Visits Re quested Visits Authorized [id number] Closed 12/06/2020 01/05/2022 1 1 Encounter Details Date Type Department Care Team (Latest Contact Info) Description 12/06/2020 12:05 PM CDT - 12/06/2020 11:59 PM CDT Hospital Encounter [facility] [place] [address] Iris Bird MD [address] [phone] [place] [address] Tachycardia Discharge Disposition: Discharge to home or self [...] MOUTH DAILY 60 tablet 10/23/2020 1 vit no.[id number]-wvzlv (Classic ) 28 mg iron- 800 mcg [...] Procedure Name Priority Date/Time Associated Diagnosis Comments ECG 12-LEAD Routine 12/06/2020 12:25 PM CDT Tachycardia documented in this encounter Results * ECG 12 lead (12/06/2020 12:25 PM CDT) Ventricular Rate EKG/Min 100 BPM [facility] Atrial Rate 100 BPM [facility] TX-Interval (MSEC) 126 ms [facility] QRS-Interval (MSEC) 74 ms [facility] QT-Interval (MSEC) 342 ms [facility] QTc 441 ms [facility] P [place] 21 degrees [facility] R [place] 5 degrees [facility] T [place] 3 degrees [facility] Diagnosis Normal sinus rhythm Nonspecific ST abnormality Abnormal ECG When compared with ECG of 06-SEP-2020 15:31, No significant change was found Confirmed by WILBERT JACOBS M.D ([id number]) on 12/07/2020 10:06:30 AM [facility] 12/06/2020 12:2 5 PM CDT 12/07/2020 10:06 AM CDT Iris Bird MD ECG ORDERABLES Final Resu lt [facility] documented in this encounter Visit Diagnoses Diagnosis Tachycardia Unspecified tachycardia documented in this encounter Care Teams Vineyard Supervisor Relationship Specialty [place] [address] [address] [place] [address] PCP - General 07/04/19 [place] [address] [address] [place] [address] 11/16/18 Ernie Shaw MD [address] [place] [address] [address] [place] [address] Baggage Clerk Obstetrics and Gynecology 06/10/20 documented as of this encounter
--- OUTSIDE RECORDS SUMMARY | 2024-02-24 20:03 | XMS_ITS | Encounter Summary ---
Author Organization [facility] Healthcare Address [address] [place] [address] Care Team Providers Care Engineering Project Designer Name Role Phone Huseyin Dangelo MD Unavailable [phone] Brian Mon MD Primary Care Provider + Ernie Shaw MD Unavailable [phone] Reason for Visit * Reason Onset Date Comments Incoming Call 12/10/2020 Round Lig ament Pain Encounter Details Date Type Department Care Team (Late st Contact Info) Description 12/10/2020 Nurse Triage [address] [address] Mariza Mccoy RN Social History Tobacco Use [...] Miscellaneous Notes * Telephone Encounter - Mariza Mccoy RN - 12/10/2020 9:02 PM CDT Reason for Disposition ??? Round ligament pain (previously diagnosed by physician), questions about Answer Assessment - Initial Assessment Questions 1. LOCATION: Where does it hurt? Left side groin area, and occasional back pain 2. RADIATION: Does the pain shoot anywhere else? (e.g., chest, back) No 3. ONSET: When did the pain begin? (Minutes, hours or days ago) Earlier this evening 4. ONSET: Gradual or sudden onset? Gradual 5. PATTERN: Does the pain come and go, or has it been constant since it started? constant 6. SEVERITY: How bad is the pain? [...] unable to do any normal activities Moderate Pain 7. RECURRENT SYMPTOM: Have you ever had this type of stomach pain before? If Yes, ask: When was the last time? and What happened that time? No 8. CAUSE: What do you think is causing the stomach pain? Thinks it's ligament pain 9. RELIEVING/AGGRAVATING FACTORS: What makes it better or worse? (e.g., antacids, bowel movement,movement) Rest and tylenol 10. MOVEMENT: Has the baby's movement decreased or changed significantly from normal? No 11. OTHER SYMPTOMS: Has there been any vaginal bleeding, fever, vomiting, diarrhea, or urine problems? Denies Protocols used: - ABDOMINAL PAIN GREATER THAN 20 WEEKS [id number] documented in this encounter Plan of Treatment Not on file documented as of this encounter Visit Diagnoses Not on filedocumented in this encounter Care Teams Engineering Project Designer Relationship Specialty [place] [address] [address] [place] [address] PCP - General 07/04/19 [place] [address] [address] [place] [address] 11/16/18 Ernie Shaw MD [address] [place] [address] [address] [place] [address] Car Chaser Obstetrics and Gynecology 06/10/20 documented as of this encounter
--- OUTSIDE RECORDS SUMMARY | 2024-02-24 20:03 | XMS_ITS | Encounter Summary ---
Author Organization [facility] Healthcare Address [address] [place] [address] Care Team Providers Care Choirmaster Name Role Phone Huseyin Dangelo MD Unavailable Brian Mon MD Primary Care Provider + Ernie Shaw MD Unavailable [phone] Reason for Visit * Reason Onset Date Comments Outgoing Call 12/08/2020 Post [facility] visit f/u Encounter Details Date Type Department Care Team (Late st Contact Info) Description 12/08/[address] [address] Amy Rodriges RN Outgoing Call (Post [facility] visit f/u) Social History Tobacco Use Types Packs/Day Years [...] encounter Miscellaneous Notes * Telephone Encounter - Amy Rodriges RN - 12/08/2020 10:47 AM CDT Contacted patient for post [facility] visit f/u for VB with known previa. Patient states she has had no VBor spotting today. Denies LOF, vaginal dc or V. States baby is active. Patient has f/u tomorrow 12/09. Patient able to teach back what to watch for and when to proceed to [facility] or closest hospital. No further questions or needs at this time. documented in this encounter Plan of Treatment Not on file documented as of this encounter Visit Diagnoses Not on filedocumented in this encounter Care Teams Choirmaster Relationship Specialty [place] [address] [address] [facility] [place] [address] PCP - General 07/04/19 [place] [address] [address] [facility] [place] [address] 11/16/18 Ernie Shaw MD [address] [place] [address] [address] [facility] [place] [address] Advanced Research Programs Director Obstetrics and Gynecology 06/10/20 documented as of this encounter
--- OUTSIDE RECORDS SUMMARY | 2024-02-24 20:04 | XMS_ITS | Encounter Summary ---
Author Organization [facility] Healthcare Address [address] [place] [address] Care Team Providers Care Instructor Physical Name Role Phone Huseyin Dangelo MD Unavailable [phone] Brian Mon MD Primary Care Provider + Ernie Shaw MD Unavailable [phone] Encounter Details Date Type Department Care Team (Late st Contact Info) Description 11/30/2020 Telephone [facility] [address] [place] [address] Margarita Olea MD [address] [facility] [address] [phone] [place] [address] Social History Tobacco Use Types [...] Telephone Encounter - Margarita Olea MD - 11/30/2020 9:48 AM CDT Received a message that patient had several questions regarding plan of care. Attempted to reach patient, went straight to . Left message with instructions to reach out to our office if there is a good time to connect over phone. Will attempt to reach later. Margarita Olea MD Maternal- Medicine Fellow Department of Obstetrics and Gynecology Pager: [phone] ADDENDUM: Attempted to reach pt at 10:30, unable to reach pt by phone (no ring, no answer). Message sent through [employer]. Margarita Olea MD Maternal- Medicine Fellow Department of Obstetrics and Gynecology Pager: [phone] documented in this encounter Plan of Treatment Not on file documented as of this encounter Visit Diagnoses Not on filedocumented in this encounter Care Teams Instructor Physical Relationship Specialty [place] [address] [address] [place] [address] PCP - General 07/04/19 [place] [address] [address] [place] [address] 11/16/18 Ernie Shaw MD [address] [place] [address] [address] [place] [address] Tax Compliance Representative Obstetrics and Gynecology 06/10/20 documented as of this encounter
--- OUTSIDE RECORDS SUMMARY | 2024-02-24 20:04 | XMS_ITS | Encounter Summary ---
Author Organization [facility] [employer] [facility] Address [address] [place] [address] Phone Care Team Providers Care Manager Case Management Name Role Phone Huseyin Dangelo MD Unavailable [phone] Brian Mon MD Primary Care Provider + Ernie Shaw MD Unavailable [phone] Reason for Visit * Reason Onset Date Comments Admission, iron infustion and no bleeding, pupps rash Other 11/16/2020 Encounter Details Date Type Department Care Team (Late st Contact Info) Description 11/16/2020 Telephone [facility] Maternal- Medicine [address] [facility] Health 7th Floor [address] [place] [address] Fariba Chin RN Admission, iron infustion and no bleeding, pupps rash Other Social History Tobacco Use Types Packs/Day Years Used Date Smoking Tobacco: Former Cigarettes Q uit: 12/28/2018 Smokeless Tobacco: Never Alcohol Use Standard Drinks/Week Comments Yes 0 (1 standard drink = 0.6 oz pur e alcohol) occasionally AUDIT-C Answer Date Recorded Q1: How often do you have a drink containing alc ohol? Never 11/09/2020 Average Number of Drinks Not on file 021 Q3: How often do you have si x or more drinks on one occasion? Never 11/09/2020 PHQ-2 Answer Date Recorded PHQ-2 Total Score [...] Telephone Encounter - Fariba Chin RN - 11/16/2020 12:12 PM CDT She has decided to not be admitted on Sunday. I will set up and iron infusion for her either Sunday or this week. She has a follow up appt with MD on 11/23 at [facility]. The itching she is experiencing is only on her belly and stretch missy area, not on her palms or soles of her feet. * Telephone Encounter - Kathia Rodríguez NP - 11/16/2020 10:34 AM CDT We talked with her at length about admission. If she does not want to be admitted that is fine, sheunderstands the risks. Please go ahead and set her up for an iron infusion and a visit with the MDsearly next week. Can you ask her if she has any itching on her palms or soles of her feet or is it just in the stretch dior? Thanks, Bereket * Telephone Encounter - Fariba Chin RN - 11/16/2020 9:46 AM CDT Carito called this morning to discuss her admission and lack of bleeding with her bowel movements. She states since she has stopped taking iron she has not had bleeding with her bowel movements. She states that last night and this morning she has had multiple bowel movements and no bleeding. She would prefer to not be admitted to the hospital as previously discussed and would like to discuss this with the doctor or nurse practioner further. She asked if she does not get admitted to the hospital Sunday could we set up her iron infusion for a different day. I explained that we would discuss and change her iron infusion once she has discussed her potential admission with a provider since she has not made a definitive decision. She verbalized understanding. Lastly, she stated that she has a rash on her belly that has bumps. She said that she showed Bereket the rash at the appt yesterday but it wasn't inflamed. She stated it is itching really bad and she isscratching it in her sleep so hard it bleeds. She said she could send a picture if needed. I told her that would be fine. She asked if she could get a cream or lotion prescribed to help. I told her Iwould have to discuss this with a provider and will let her know. documented in this encounter Plan of Treatment Not on file documented as of this encounter Visit Diagnoses Not on filedocumented in this encounter Care Teams Manager Case Management Relationship Specialty [place] [address] [address] [facility] [place] [address] PCP - General 07/04/19 [place] [address] [address] [facility] [place] [address] 11/16/18 Ernie Shaw MD [address] [place] [address] [address] [facility] [place] [address] Air Quality Engineer Obstetrics and Gynecology 06/10/20 documented as of this encounter
--- OUTSIDE RECORDS SUMMARY | 2024-02-24 20:04 | XMS_ITS | Encounter Summary ---
Author Organization [facility] [facility] Address [address] [place] [address] Phone Care Team Providers Care Pole Cutter Name Role Phone Huseyin Dangelo MD Unavailable [phone] Brian Mon MD Primary Care Provider + Ernie Shaw MD Unavailable [phone] Encounter Details Date Type Department Care Team (Late st Contact Info) Description 11/16/2020 Telephone [facility] Maternal- Medicine [address] [facility] 7th Floor [address] [place] [address] Fraiba Chin RN Social History Tobacco Use Types [...] Encounter - Fariba Chin RN - 11/16/2020 4:46 PM CDT I called Carito and had to leave a voice mail. I let her know we would be leaving for the day andwe can talk tomorrow more in detail about it. I am going to send her a my chart message. The cream that we would normally use to treat her itching is showing she has an allergy contraindication in the system and we will speak to the pharmacist to make sure it is ok before prescribing it or if there is an alternative we could prescribe. Also there are no available scheduling slot for the iron infusion on Sunday, or Sunday.She could come on Sunday or Sunday. documented in this encounter Plan of Treatment Not on file documented as of this encounter Visit Diagnoses Not on filedocumented in this encounter Care Teams Pole Cutter Relationship Specialty [place] [address] [address] [place] [address] PCP - General 07/04/19 [place] [address] [address] [place] [address] 11/16/18 Ernie Shaw MD [address] [place] [address] [address] [place] [address] Buckle Stapler Obstetrics and Gynecology 06/10/20 documented as of this encounter
--- OUTSIDE RECORDS SUMMARY | 2024-02-24 20:04 | XMS_ITS | Encounter Summary ---
Author Organization [facility] Address [address] [place] [address] Phone Care Team Providers Care Global President Name Role Phone Huseyin Dangelo MD Unavailable [phone] Brian Mon MD Primary Care Provider + Ernie Shaw MD Unavailable [phone] Reason for Visit * Reason Onset Date Comments questions regarding appts 11/24/2020 Encounter Details Date Type Department Care Team (Late st Contact Info) Description 11/24/2020 Telephone [facility] Maternal- Medicine [address] [facility] Health 7th Floor [address] [place] [address] Fariba Chin RN questions regarding appts Social History Tobacco Use Types Packs/Day Years Used Date Smoking Tobacco: Former Cigarettes Q uit: 12/28/2018 Smokeless Tobacco: Never Alcohol Use Standard Drinks/Week Comments Yes 0 (1 standard drink = 0.6 oz pur e alcohol) occasionally AUDIT-C Answer Date Recorded Q1: How often do you have a drink containing alc ohol? Never 11/19/2020 Average Number of Drinks Not on file 021 Q3: How often do you have si x or more drinks on one occasion? Never 11/19/2020 PHQ-2 Answer Date Recorded PHQ-2 Total Score [...] Telephone Encounter - Fariba Chin RN - 11/24/2020 9:07 AM CDT Carito called with questions regarding the appts she needs to schedule. I confirmed with her thatblanche will need to schedule 2/weekly NSTs starting at 32 weeks and an OBR with Growth/BPP in 2 weeks. She stated she thought she was supposed to have an ultrasound 2 weeks from the last one. I explained that the closest we would perform a growth ultrasound would be 3 weeks and that is what we are currently recommending. She verbalized understanding and will schedule accordingly. She also stated she spoke with Dr. Marie about delivery at 36 weeks instead of [address] Marie's note and it clearly states 37 weeks delivery. I explained this and she verbalized understanding. I transferred her to the scheduling line to make appts. documented in this encounter Plan of Treatment Not on file documented as of this encounter Visit Diagnoses Not on filedocumented in this encounter Care Teams Global President Relationship Specialty [place] [address] [address] [place] [address] PCP - General 07/04/19 [place] [address] [address] [place] [address] 11/16/18 Ernie Shaw MD [address] [place] [address] [address] [place] [address] Entry Level Account Executive Obstetrics and Gynecology 06/10/20 documented as of this encounter
--- OUTSIDE RECORDS SUMMARY | 2024-02-24 20:04 | XMS_ITS | Encounter Summary ---
Author Organization [facility] [facility] Address [address] [place] [address] Phone Care Team Providers Care Processing Technician Name Role Phone Huseyin Dangelo MD Unavailable [phone] Brian Mon MD Primary Care Provider + Ernie Shaw MD Unavailable [phone] Encounter Details Date Type Department Care Team (Late st Contact Info) Description 11/17/2020 Orders Only [facility] Maternal- Medicine [address] [facility] Health 7th Floor [address] [place] [address] Anh Marin, PRO Social History [...] Refills Last Filled Start Date End Date clobetasoL (TEMOVATE) 0.05 % ointment Apply topically 2 (two) times a day 30 g 1 11/17/2020 documented in this encounter Progress Notes * Anh Marin RN - 11/17/2020 4:07 PM CDT Per Babs PINON, clobetasol sent to pt. Pharmacy. Babs PINON has reviewed this rx with Nohemy Serrano and Carlos Thomas due to pt. Drug interaction. All agreed that topical ointment is appropriate for pt. S/s of reaction reviewed with pt. And pt. Verbalized understanding to stop rx, wash body and call provider if any s/s appear. documented in this encounter Plan of Treatment Not on file documented as of this encounter Visit Diagnoses Not on filedocumented in this encounter Discontinued Medications Medication Sig Discontinue Reason Start Date End Da te clobetasoL (TEMOVATE) 0.05 % ointment Apply topically 2 (two) times a day Reorder 09/29/2020 11/17/2020 documented as of this encounter Care Teams Processing Technician Relationship Specialty [place] [address] [address] [place] [address] PCP - General 07/04/19 [place] [address] [address] [place] [address] 11/16/18 Ernie Shaw MD [address] [place] [address] [address] [place] [address] Fiber Optic Assembly Worker Obstetrics and Gynecology 06/10/20 documented as of this encounter
--- OUTSIDE RECORDS SUMMARY | 2024-02-24 20:04 | XMS_ITS | Encounter Summary ---
Author Organization [facility] Address [address] [place] [address] Phone Care Team Providers Care Welt Edge Rounder Name Role Phone Huseyin Dangelo MD Unavailable [phone] Brian Mon MD Primary Care Provider + Ernie Shaw MD Unavailable [phone] Encounter Details Date Type Department Care Team (Late st Contact Info) Description 11/19/2020 Telephone [facility] Maternal- Medicine [facility] [address] [facility] Medical Office [address] [place] [address] Alivia Waite, PRO Social History Tobacco Use Types Packs/Day [...] encounter Miscellaneous Notes * Addendum Note - Alberto Costa CLT - 11/23/2020 7:40 AM CDTAddended by: ALBERTO COSTA on: 11/23/2020 07:40 AM Modules accepted: Orders * Addendum Note - Alivia Waite RN - 11/19/2020 9:58 AM CDTAddended by: ALIVIA WAITE on: 11/19/2020 09:58 AM Modules accepted: Orders * Telephone Encounter - Alivia Waite RN - 11/19/2020 9:18 AM CDT Images from the original note were not included. Response received from pt, will cancel Iron infusion and order Ferritin for appt that is scheduled Sunday. Carito Madison [facility] Clinical Pool Can we do that instead of tomorrow ? Contacted pt pre request below. Pt states that is no longer bleeding that the bleeding that she reported was caused by her shaving her and accidentally cutting her with the razor . Pt statesshe is now using just hydrocortisone for her rash. Pt also concerned about Iron infusion tomorrow and the potential to have a lupus flare. Discussed with Babs Rodríguez NP and per rheumatology note - okay to receive iron infusion. Babs Rodríguez NP also reviewed pt's previous labs and hemoglobin and it is stable for , so offered pt to have ferritin levels drawn and to follow up at her appt on Sunday to determine the need for iron. ----- Message from Carito [place] sent at 11/19/2020 8:40 AM CDT ----- Regarding: medication sent to pharmacy Can you call me please Hi Carito, ?? Did you go to the hospital to be evaluated for the bleeding you reported yesterday morning? ?? PRO Veliz Courtney A Brockman, Stella Danielle, PRO 12 hours ago (8:25 PM) Oh my goodness you were rite that is the stuff I???m allergic too it made it so much worse and it hurts so bad should I try something else? Carito [place] Stella Danielle, PRO 2 days ago Thank you! Anh Marin, Carito Thrasher 2 days ago SB DARIANA Arzate, ?? We have sent in the prescription for itching to your pharmacy. As discussed earlier on the phone ifyou experience any signs or symptoms from this cream, immediately stop use, wash off affected area and contact your provider or seek care at your nearest facility. ?? Please let me know if you have any questions. ?? Anh Marin RN documented in this encounter Plan of Treatment Not on file documented as of this encounter Results * (ABNORMAL) Ferritin (11/23/2020 7:46 AM CDT) Ferritin 10(L) 15 - 150 ng/mL ARPITA MARTIN (MERCEDES) Blood 11/23/2020 7:46 AM CDT 11/23/2020 8:21 AM CDT us Kathia Rodríguez PATIENT SUPPORT REPRESENTATIVE LAB BLOOD ORDERABLE S Final Result ARPITA MARTIN (MERCEDES) [address] [facility] Department [place] [address] documented in this encounter Visit Diagnoses Diagnosis Supervision of high-risk , unspecified trimester- Primary documented in this encounter Care Teams Welt Edge Rounder Relationship Specialty [place] [address] [address] [facility] [address] [place] [address] PCP - General 07/04/19 [place] [address] [address] [place] [address] [place] [address] 11/16/18 Ernie Shaw MD [address] [facility] [address] [place] [address] Rat Poisoner Obstetrics and Gynecology 06/10/20 documented as of this encounter
--- OUTSIDE RECORDS SUMMARY | 2024-02-24 20:04 | XMS_ITS | Encounter Summary ---
Author Organization [facility] [facility] Address [address] [place] [address] Phone Care Team Providers Care Director Learning And Development Name Role Phone Huseyin Dangelo MD Unavailable [phone] Brian Mon MD Primary Care Provider + Ernie Shaw MD Unavailable [phone] Encounter Details Date Type Department Care Team (Late st Contact Info) Description 11/23/2020 Telephone [facility] Obstetrics and Gynecology [address] [place] [address] Shanell Hodge Social History Tobacco Use [...] * Telephone Encounter - Shanell Ribeiro - 11/24/2020 9:18 AM CDT Patient scheduled as below: 12/03 nst 9am 12/06 growth/bpp 10:30 [facility] 11:15 1014 nst 9:30am 12/13 nst 9:30 12/16 nst 9:30 * Telephone Encounter - Shanell Ribeiro - 11/24/2020 8:55 AM CDT Patient wanted to talk to [facility] clinical nurses before scheduling, she will call back to schedule 11/24 * Telephone Encounter - Shanell Ribeiro - 11/23/2020 3:28 PM CDT Patient needs nst 2x week starting at 32 weeks 2week obr with growth/bpp Left vm for pt to call to schedule * Telephone Encounter - Shanell Ribeiro - 11/23/2020 3:28 PM CDT ----- Message from Katharina Yates RN sent at 11/23/2020 3:06 PM CDT ----- Please call pt to schedule appts - thank u documented in this encounter Plan of Treatment Not on file documented as of this encounter Visit Diagnoses Not on filedocumented in this encounter Care Teams Director Learning And Development Relationship Specialty [place] [address] [place] [address] PCP - General 07/04/19 [place] [address] [facility] [address] [place] [address] 11/16/18 Ernie Shaw MD [address] [place] [address] [address] [place] [address] Sound Tester Obstetrics and Gynecology 06/10/20 documented as of this encounter
--- OUTSIDE RECORDS SUMMARY | 2024-02-24 20:04 | XMS_ITS | Encounter Summary ---
Author Organization [facility] Healthcare Address [address] [place] [address] Care Team Providers Care Hvac Tech Name Role Phone Huseyin Dangelo MD Unavailable [phone] Brian Mon MD Primary Care Provider + Ernie Shaw MD Unavailable [phone] Reason for Visit * Reason Comments Problem abd cramping Encounter Details Date Type Department Care Team (Latest Contact Info) Description 11/29/2020 7:03 AM CDT - 11/29/2020 11:00 AM CDT Hospital Encounter [address] [phone] Crystal Murray MD [address] [facility] [id number] [place] [address] Discharge Disposition: Discharge to home or self [...] Sign Reading Time Taken Comments Blood Pressure 127/80 11/29/2020 7:09 AM CDT Pulse 101 11/29/2020 7:09 AM CDT Temperature 36.5 ??C (97.7 ??F) 11/29/2020 7:09 AM CD T Respiratory Rate 18 11/29/2020 7:09 AM CDT Oxygen Saturation 99% 11/29/2020 7:09 AM CDT Inhaled Oxygen Concentration - - Weight 84.9 kg (187 lb 1.6 oz) 11/29/2020 7:12 A M CDT Height 157.5 cm (5' 2 ) 11/29/2020 7:12 AM CDT Body Mass Index 34.22 11/29/2020 7:12 AM CDT documented in this encounter Discharge Diagnoses Diagnosis Other specified related conditions, third trimester - OTHER SPECIFIED RELATED CONDITIONS, THIRD TRIMESTER Unspecified abdominal pain - UNSPECIFIED ABDOMINAL PAIN 31 weeks gestation of - 31 WEEKS GESTATION OF Other mental disorders complicating , third trimester - OTHER MENTAL DISORDERS COMPLICATING , THIRD TRIMESTER Major depressive disorder, single episode, unspecified - MAJOR DEPRESSIVE DISORDER, SINGLE EPISODE, UNSPECIFIED Anxiety disorder, unspecified - ANXIETY DISORDER, UNSPECIFIED Other specified diseases and conditions complicating - OTHER SPECIFIED DISEASES AND CONDITIONS COMPLICATING Rheumatoid arthritis, unspecified (HCC) - RHEUMATOID ARTHRITIS, UNSPECIFIED Systemic lupus erythematosus, unspecified (HCC) - SYSTEMIC LUPUS ERYTHEMATOSUS, UNSPECIFIED Anemia complicating , third trimester - ANEMIA COMPLICATING , THIRD TRIMESTER Anemia, unspecified - ANEMIA, UNSPECIFIED 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 * at 31 to 34 Weeks (AfterCare(R) Instructions(ER/ED)) (Armenian) documented in this encounter Medications at Time of Discharge aspirin 81 mg enteric coated tablet Take 81 mg by mouth daily 1 ferrous gluconate (ferrous gluconate) 324 mg [...] MOUTH DAILY 60 tablet 10/23/2020 1 vit [id number] (Classic ) 28 mg iron- 800 mcg [...] documented in this encounter H&P Notes * Anneliese Beckman, KINGA - 11/29/2020 7:27 AM CDT Obstetrics H&P Chief Complaint: abdominal pain/cramping Estimated Date of Delivery: 01/27/21 Provider: RENETTA HPI: Carito Madison is a 30 y.o. female at 31w4d gestation, dated by L=1st presents for complaints of abdominal pain and cramping for the past 2 days. She denies VB, LOF and or concerns for STIs. She denies intercourse and or dysuria. She endorses good movement. She also reports feeling anxious about having a previa and is concerned her abdominal cramping will lead to VB. 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 Patient [...] : aspirin 81 mg enteric coated tablet clobetasoL (TEMOVATE) 0.05 % ointment ferrous gluconate (ferrous gluconate) 324 mg (37.5 mg of elemental iron) tablet hydrOXYchloroQUINE (PLAQUENIL) 200 mg tablet multivitamin capsule omeprazole (PriLOSEC) 20 mg capsule ondansetron ODT (ZOFRAN-ODT) 8 mg disintegrating tablet polyethylene glycol (MIRALAX) 17 gram/dose powder predniSONE (DELTASONE) 5 mg tablet vit [id number] (Classic ) 28 mg iron- 800 mcg tablet sertraline (ZOLOFT) 25 mg tablet valACYclovir (VALTREX) 500 mg tablet Review of Sys: Negative except per HPI Vitals: Temp: [36.5 ??C (97.7 ??F)] 36.5 ??C (97.7 ??F) Pulse: [101] 101 Resp: [18] 18 BP: (127)/(80) 127/80 Physical Exam: General: NAD, mood appropriate Cardiovascular: Regular rate and rhythm Pulmonary: unlabored breathing Abdomen: Gravid, non-tender Extremities: Warm and well perfused Speculum Exam: white physiologic discharge, no pooling, no blood Cervix: visually closedwith some appreciable length. Unable to determine internal os dilation Monitoring: Baseline: 135 bpm, Variability: Moderate, Accelerations: Present and Decelerations: Yes, occasional variable appropriate for gestationa age Uterine Activity: No contractions seen on toco Interpretation: Reactive Labs: Lab Results Component Value Date ABORH A Positive 10/18/2020 IDCOOMB Negative 10/18/2020 GBS Not yet done Assessment and Plan Carito Madison is a 30 y.o. female at 31w4d who presented with abdominal/back pain #abdominal pain/cramping -VSS -IVF: LR bolus -Labs: coags, CBC normal and T&S Rh Neg -Abd benign - no contractions on toco - SSE WNL and cervix visually closed with appreciable length - Strict PTL precautions #FWB -Reactive FHR tracing, occasional variable appropriate for gestational age, overall reassuring Plan discussed with Dr. Mercy Beckman NP Care relinquished to Alexei Mcrae NP @ [facility] 11/29/20 Cosigned by Dilan Riley MD at 11/29/2020 3:55 PM CDT Associated attestation - Dilan Riley MD - 11/29/2020 3:55 PM CDT I have reviewed the above note for Carito Madison, and I agree with the documented plan by the resident/fellow/MEKHI. Dilan Riley MD 11/29/2020 documented in this encounter Procedure Notes * Jacqui Mcrae NP - 11/29/2020 11:00 AM CDT Procedures Electronic Monitoring/Non-Stress Test Date: 11/29/20 Time: Carito Madison is a 30 y.o. female at 31w4d gestation FHR Baseline: 135 Variability: moderate Accelerations: present Decelerations: variable decel appropriate for gestational age Contractions: absent Reactive: Yes Comments: reassuring I have reviewed NST and instructed RN to take off monitor KATHRIN Fang Cosigned by Dilan Riley MD at 12/02/2020 12:31 PM CDT documented in this encounter Nursing Notes * Blair Martins RN - 11/29/2020 11:00 AM CDT Pt evaluated for crampy feeling like I'm going to get my period . Only occasional contractions detected. IVF bolus given and pt states she feels better. Scheduled for iron infusion (previously scheduled and refused) on 12/03. documented in this encounter Plan of Treatment Not on file documented as of this encounter Procedures Procedure Name Priority Date/Time Associated Diagnosis Comments DIFFERENTIAL AUTO STAT 11/29/2020 9:0 4 AM CDT CBC WITH AUTO DIFFERENTIAL STAT 11/29/2020 9:04 AM CDT TYPE AND SCREEN STAT 11/29/2020 9:04 AM CDT APTT STAT 11/29/2020 9:03 AM CDT PROTIME-INR STAT 11/29/2020 9:03 AM CDT FIBRINOGEN STAT 11/29/2020 9:03 AM CDT POCT URINALYSIS DIPSTICK Routine 11/29/2020 8:10 AM CDT documented in this encounter Results * (ABNORMAL) Differential, auto (11/29/2020 9:04 AM CDT) Neutrophil abs 8.2(H) 1.7 - 6.5 K/cumm [facility] Imm gran abs 0.1 0.0 - 0.1 K/cumm [facility] Lymphocyte abs 1.4 0.8 - 3.3 K/cumm [facility] Monocyte abs 0.6 0.2 - 0.8 K/cumm [facility] Eosinophil abs 0.1 0.0 - 0.5 K/cumm [facility] Basophil abs 0.0 0.0 - 0.1 K/cumm [facility] Neutrophil pct 79.2 % [facility] Comment: Interpretive Data Percent cell count reference ranges are not reported, since discordance with absolute values may lead to misinterpretation of CBC data. Current Interpretive Data was last revised on 2017. Imm gran pct 0.8 % [facility] Comment: Interpretive Data Percent cell count reference ranges are not reported, since discordance with absolute values may lead to misinterpretation of CBC data. Current Interpretive Data was last revised on 2017. Lymphocyte pct 13.5 % [facility] Comment: Interpretive Data Percent cell count reference ranges are not reported, since discordance with absolute values may lead to misinterpretation of CBC data. Current Interpretive Data was last revised on 2017. Monocyte pct 5.5 % [facility] Comment: Interpretive Data Percent cell count reference ranges are not reported, since discordance with absolute values may lead to misinterpretation of CBC data. Current Interpretive Data was last revised on 2017. Eosinophil pct 0.9 % [facility] Comment: Interpretive Data Percent cell count reference ranges are not reported, since discordance with absolute values may lead to misinterpretation of CBC data. Current Interpretive Data was last revised on 2017. Basophil pct 0.1 % [facility] Comment: Interpretive Data Percent cell count reference ranges are not reported, since discordance with absolute values may lead to misinterpretation of CBC data. Current Interpretive Data was last revised on 2017. Blood 11/29/2020 9:04 AM CDT 11/29/2020 9:09 AM CDT Anneliese Beckman NP LAB BLOOD ORDERABLES Final Re sult Performing Organization Address [facility] [place] [address] * Type and screen (11/29/2020 9:04 AM CDT) Pathologist [facility] Jose Antonio, indirect Negative [facility] ABO Rh A Positive [facility] Blood 11/29/2020 9:04 AM CDT 11/29/2020 9:22 AM CDT Narrative [facility] - 11/29/2020 10:27 AM CDT Has the patient had Daratumumab or Isatuximab in the past 6 months?->Unknown Anneliese Beckman NP LAB BLOOD BANK TEST ORDERABLE S Final Result Performing Organization Address [facility] Co de Phone Number [facility] [place] [address] * (ABNORMAL) CBC with auto differential (11/29/2020 9:04 AM CDT) WBC 10.3(H) 3.8 - 9.9 K/cumm [facility] Hgb 9.9(L) 11.9 - 15.5 g/dL [facility] Hct 31.3(L) 35.6 - 45.5 % [facility] Plt 246 150 - 400 K/cumm [facility] MPV 9.8 9.1 - 12.3 fL [facility] RBC 3.65(L) 3.90 - 5.20 M/cumm [facility] MCV 85.8 81.3 - 96.4 fL [facility] MCH 27.1 27.1 - 33.3 pg [facility] MCHC 31.6(L) 32.3 - 35.7 g/dL [facility] RDW CV 16.4(H) 11.1 - 14.9 % [facility] RDW SD 50.0(H) 35.7 - 48.1 fL [facility] NRBC abs 0.00 0.00 - 0.01 K/cumm [facility] Blood 11/29/2020 9:04 AM CDT 11/29/2020 9:09 AM CDT Anneliese Beckman NP LAB BLOOD ORDERABLES Final Re sult Performing Organization Address [facility] Co de Phone Number [facility] [place] [address] * (ABNORMAL) aPTT (11/29/2020 9:03 AM CDT) aPTT 26(L) 27 - 37 sec [facility] Comment: Interpretive Data Therapeutic heparin range: 60.0 - 94.0 seconds. Based on correlation with therapeutic heparin activity range of 0.3-0.7 Units/mL. Current interpretive data was last revised on 2020. Blood 11/29/2020 9:03 AM CDT 11/29/2020 9:09 AM CDT Anneliese Beckman NP LAB BLOOD ORDERABLES Final Re sult Performing Organization Address [facility] Co de Phone Number [facility] [place] [address] * Protime-INR (11/29/2020 9:03 AM CDT) PT 10.8 9.5 - 13.6 sec [facility] INR 1.0 0.9 - 1.2 [facility] Comment: Interpretive data Oral anticoagulant therapeutic ranges: Venous thromboembolism prophylaxis or treatment: 2.0-3.0 CARDIOLOGY Standard range: 2.0-3.0 High-intensity range: 2.5-3.5 Refer to indication-specific guidelines for appropriate target ranges for prosthetic heart valve replacement. Current interpretive data was last revised on 2019. Blood 11/29/2020 9:03 AM CDT 11/29/2020 9:09 AM CDT Anneliese Beckman NP LAB BLOOD ORDERABLES Final Re sult Performing Organization Address City/[facility]/ZIP Co de Phone Number [facility] [place] [address] * (ABNORMAL) Fibrinogen (11/29/2020 9:03 AM CDT) Pathologist [facility] Fibrinogen 500(H) 170 - 400 mg/dL [facility] Blood 11/29/2020 9:03 AM CDT 11/29/2020 9:09 AM CDT Anneliese Beckman NP LAB BLOOD ORDERABLES Final Re sult Performing Organization Address [facility] Co de Phone Number [facility] [place] [address] * POCT urinalysis dipstick (11/29/2020 8:10 AM CDT) Color, Urine, POC Dark Yellow Clarity, ur, POC Clear Clear Glucose, ur, POC Negative Negative mg/dL Bilirubin, ur, POC Negative Negative, Small, Moderate, Large Ketones, ur, POC Negative Negative Specific Gordon, POC 1.030 1.005 - 1.030 Blood, ur, POC Negative Negative pH, ur, POC 6.5 5.0 - 8.0 Protein, ur, POC Negative Negative Urobilinogen, urine, POC 0.2 0.2 - 1.0 mg/dL Nitrite, ur, POC Negative Negative Leukocytes, ur, POC Negative Negative Lot Number [id number] Urine 11/29/2020 8:10 AM CDT us Anneliese Beckman NP POINT OF CARE TEST ORDERABLES Final Result documented in this encounter Visit Diagnoses Diagnosis Generalized anxiety disorder Marginal insertion of umbilical cord affecting management of mother in second trimester Polyhydramnios in third trimester, [...] MAR Action Action Date Dose Rate Site Lactated Ringer's (LR) bolus 1,000 mL 1,000 mL, intravenous, Once, On Sun11/29/20 at 0845, For 1 dose New Bag 11/29/2020 8:31 AM CDT 1,000 mL sodium chloride 0.9% flush 0.5-20 mL 0.5-20 mL, intra-catheter, Every 8 hours scheduled, First dose on Sun11/29/20 at 0845, Flush volume based on line type and size. sodium chloride 0.9% flush 0.5-20 mL 0.5-20 mL, intra-catheter, As needed, line care, Starting on Sun11/29/20 at 0811, Flush volume based on line type and size. Flush before and after each use. documented in this encounter Discontinued Medications Medication Sig Discontinue Reason Start Date End Da te clobetasoL (TEMOVATE) 0.05 % ointment Apply topically 2 (two) times a day 11/17/2020 11/29/2020 multivitamin capsule Take 1 capsule by mouth daily Alternate therapy 11/29/2020 documented as of this encounter Active and Recently Administered Medications Times are shown in CDT. Scheduled Medication Order 11/27/2020 11/28/2020 11/29/2020 Lactated Ringer's (LR) bolus 1,000 mL (COMPLETED) 1,000 mL, intravenous, Once, On Sun11/29/20 at 0845, For 1 dose 0831 (New Bag - Prov ider: Blair Martins RN)0930 (Stopped - Provider: Blair Martins RN) sodium chloride 0.9% flush 0.5-20 mL 0.5-20 mL, intra-catheter, Every 8 hours scheduled, First dose on Sun11/29/20 at 0845, Flush volume based on line type and size. 0845 (Due) PRN Medication Order 11/27/2020 11/28/2020 11/29/2020 sodium chloride 0.9% flush 0.5-20 mL 0.5-20 mL, intra-catheter, As needed, line care, Starting on Sun11/29/20 at 0811, Flush volume based on line type and size. Flush before and after each use. documented in this encounter Orders Medications Ordered That Omer ht Not Have Been Administered Count Last Ordered Date First Ordered Date Lactated Ringer's (LR) bolus 1,000 mL 1 05/2020 sodium chloride 0.9% flush 0.5-20 mL 2 05/2020 documented in this encounter Care Teams Hvac Tech Relationship Specialty [place] [id number] [address] [place] [address] PCP - General 07/04/19 [place] [address] [address] [place] [address] 11/16/18 Ernie Shaw MD [address] [place] [address] [address] [place] [address] Painting Contractor Obstetrics and Gynecology 06/10/20 documented as of this encounter
--- OUTSIDE RECORDS SUMMARY | 2024-02-24 20:04 | XMS_ITS | Encounter Summary ---
Author Organization 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 [employer] Name Role Phone Huseyin Dangelo MD Unavailable [phone] Brian Mon MD Primary Care Provider + Ernie Shaw MD Unavailable [phone] Reason for Visit * Reason Comments Multiple Medical Complaints Encounter Details Date Type Department Care Team (Late st Contact Info) Description 11/16/2020 8:03 PM CDT - 11/16/2020 9:09 PM CDT Emergency [facility] Emergency Department [address] [place] [address] Discharge Disposition: Left Against Medical Advice Social [...] Sign Reading Time Taken Comments Blood Pressure 117/62 11/16/2020 8:30 PM CDT Pulse 101 11/16/2020 8:30 PM CDT Temperature 36.5 ??C (97.7 ??F) 11/16/2020 7:33 PM CD T Respiratory Rate 29 11/16/2020 8:30 PM CDT Oxygen Saturation 98% 11/16/2020 8:30 PM CDT Inhaled Oxygen Concentration - - Weight 84.4 kg (186 lb 1.1 oz) 11/16/2020 7:33 P M CDT Height - - Body Mass Index 34.03 11/15/2020 10:08 AM CDT documented in this encounter Discharge Diagnoses Diagnosis related conditions, unspecified, third trimester - RELATED CONDITIONS, UNSPECIFIED, THIRD TRIMESTER 29 weeks gestation of - 29 WEEKS GESTATION OF Dizziness and giddiness - DIZZINESS AND GIDDINESS Acute pharyngitis, unspecified - ACUTE PHARYNGITIS, UNSPECIFIED Unspecified adrenocortical insufficiency (HCC) - UNSPECIFIED ADRENOCORTICAL INSUFFICIENCY Contact with and (suspected) exposure to covid-19 - CONTACT WITH AND (SUSPECTED) EXPOSURE TO COVID-19 documented in this encounter Medications at Time of Discharge aspirin 81 mg enteric coated tablet Take 81 mg by mouth daily 1 clobetasoL (TEMOVATE) 0.05 % ointment Apply topically 2 (two) times a day 30 g 1 09/29/2020 1 ferrous gluconate (ferrous gluconate) 324 mg (37.5 mg of elemental iron) tabletIndications:Ir on deficiency Take 1 tablet (324 mg total) by mouth 3 (three) times a day 90 tablet 2 11/10/2020 1 hydrOXYchloroQUINE (PLAQUENIL) 200 mg tablet Take 2 tablets (400 mg total) by mouth daily 60 tablet 5 09/30/2020 2 multivitamin capsule Take 1 capsule by mouth daily 1 omeprazole (PriLOSEC) 20 mg capsule Take [...] MOUTH DAILY 60 tablet 10/23/2020 1 vit [id number] (Classic ) 28 mg iron- 800 mcg tablet Take 1 tablet by mouth daily 1 sertraline (ZOLOFT) 25 mg tablet 10/18/2020 2 valACYclovir (VALTREX) 500 mg tablet TAKE 1 TAB BY MOUTH 3 TIMES DAILY FOR 7 DAYS. 12/03/2019 1 documented as of this encounter Discharge Disposition Disposition Code Departure Means Destination Comment s Left Against Medical Advice Pt signed AMA papers. Pt out in coates asking to leave. Pt states she understood risks. documented in this encounter ED Notes * Silas Wayne MD - 11/16/2020 8:57 PM CDT HPI Chief Complaint Patient presents with ??? Multiple Medical Complaints Pt is a 30yo w/ a h/o lupus, adrenal insufficiency, and 2 prior miscarriages presenting forlight headedness. Pt says that she doesn't feel like the room is spinning but says that it feels more like she is about to pass out. Denies any positional changes that worsen the s/s, nothing makes it better. Says that last week she had a similar episode and called EMS for it but didn't go to the ED with them. Says that she went to her M yesterday and they did labs on her and found that she is doing fine. BP has been NL, no abnormal labs, mentioned that her last A1c was abnormal. Has had someabd itching. Also mentioned that she was exposed to covid at work. 2 colleagues of hers tested positive this week. She and her were fully vaccinated. Says that she has had some sore throat and is inquiring about this possibly causing her light headedness. Is being followed by MFM at [facility], is scheduled for due to placenta previa. Denies [place], blurred vision, tinnitus, CP, SOB, NVDC, rashes, dysuria, edema, vaginal bleeding, and abd pain. Patient History: Patient Active Problem List Diagnosis Date Noted ??? Rectal bleeding 11/16/2020 ??? Polyhydramnios in third trimester, not applicable or unspecified fetus 10/26/2020 ??? Marginal insertion of umbilical cord affecting management of mother in second trimester 08/26/2020 ??? Placenta previa specified as without hemorrhage in second trimester 08/26/2020 ??? Attention deficit hyperactivity disorder (ADHD), combined type 07/15/2020 ??? Generalized anxiety disorder 06/15/2020 ??? Supervision of high-risk , unspecified trimester 06/10/2020 ??? Secondary adrenal insufficiency (CMS/HCC) (HCC) 06/03/2020 ??? Right carpal tunnel syndrome 05/12/2020 ??? Bilateral chronic serous otitis media 03/31/2020 ??? Adrenal insufficiency (CMS/HCC) (HCC) 03/04/2020 ??? Microcytic anemia 12/24/2019 ??? Joint pain 12/24/2019 ??? Anti-BERRY PICKER MACHINE OPERATOR antibodies present 12/24/2019 ??? Epilepsy undetermined as to focal or generalized (CMS/HCC) (HCC) 08/26/2019 ??? Nausea and vomiting 07/16/2019 ??? Epigastric pain 07/16/2019 ??? Gastroesophageal reflux disease 07/16/2019 ??? Diarrhea 07/16/2019 ??? Abdominal pain 07/16/2019 ??? Liver lesion 07/16/2019 ??? BMI 29.0-29.9,adult 07/16/2019 ??? Nausea with vomiting 07/16/2019 ??? AP (abdominal pain) 07/16/2019 ??? Tachycardia ??? Cough 05/24/2019 ??? Lupus (CMS/HCC) (HCC) 05/24/2019 ??? Miscarriage 05/24/2019 ??? Laceration of flexor muscle, fascia and tendon of right little finger at wrist and hand level, initial encounter 12/06/2018 Past Medical History: Diagnosis Date ??? Anemia ??? Anxiety ??? Asthma ??? Chronic diarrhea ??? Chronic kidney disease ??? Depression ??? Headache, tension-type ??? Lupus (CMS/HCC) (HCC) ??? PONV (postoperative nausea and vomiting) ??? 07/13/2015 ??? Rheumatoid arthritis (HCC) ??? Seizures (CMS/HCC) (HCC) Past Surgical History: Procedure Laterality Date [...] Former Smoker Quit date: 12/28/2018 Years since quittin.8 ??? Smokeless tobacco: Never Used Vaping Use ??? Vaping Use: Never used Substance Use Topics ??? Alcohol use: Yes Comment: occasionally ??? Drug use: Not Currently Types: Marijuana Social History Social History Narrative ??? Not on file Review of Systems Review of Systems Constitutional: Negative for chills, fatigue and fever. HENT: Negative for tinnitus. Eyes: Negative for visual disturbance. Respiratory: Negative for cough and chest tightness. Cardiovascular: Negative for chest pain and leg swelling. Gastrointestinal: Negative for constipation and nausea. Genitourinary: Negative for dysuria. Skin: Negative for rash. Neurological: Negative for dizziness, syncope and headaches. Psychiatric/Behavioral: Negative for agitation. Physical Exam ED Triage Vitals [11/16/20 1933] Temp Pulse Resp BP SpO2 36.5 ??C (97.7 ??F) 98 18 120/88 99 % Temp src Heart Rate Source Patient Position BP Location FiO2 (%) Tympanic -- -- -- -- Physical Exam Constitutional: Appearance: She is not ill-appearing. Comments: 29wks HENT: Head: Normocephalic. Nose: No congestion. Eyes: General: No scleral icterus. Extraocular Movements: Extraocular movements intact. Cardiovascular: Rate and Rhythm: Normal rate and regular rhythm. Heart sounds: No murmur heard. No friction rub. No gallop. Pulmonary: Effort: Pulmonary effort is normal. No respiratory distress. Breath sounds: No wheezing, rhonchi or rales. Abdominal: Palpations: Abdomen is soft. Tenderness: There is no abdominal tenderness. Comments: 29wks Musculoskeletal: General: No swelling. Cervical back: Normal range of motion and neck supple. Lymphadenopathy: Cervical: No cervical adenopathy. Skin: General: Skin is warm and dry. Capillary Refill: Capillary refill takes less than 2 seconds. Coloration: Skin is not jaundiced. Neurological: Mental Status: She is alert and oriented to person, place, and time. Cranial Nerves: No cranial nerve deficit. Gait: Gait normal. Psychiatric: Mood and Affect: Mood normal. MDM MDM Pt has a hx of abnormal A1c, previous miscarriages, and high risk pregnancies. Is 29wks . Pt is at higher risk for HELLP syndrome, pre-eclampsia, and eclampsia. Recent hx of covid exposure puts her at risk for possible covid 19 infection. She is currently asymptomatic except for her subjective feelings of light headedness. - CBC - CMP - Mag level - UA w/ reflex Addendum: Pt left AMA. Risk of severe causes of her light headedness were explained to pt such as termite control representative morbidities and . Pt left before attending had an opportunity to see them. Explained to them the importance of being seen by the attending, still refused. Signed form and left. Attending Summary of Care No diagnosis found. Silas Wayne MD Resident 11/[id number]/[id number] Cosigned by Harry Santos MD at 11/16/2020 9:31 PM CDT * Kike Grossman RN - 11/16/2020 7:31 PM CDT PATIENT 29 WEEKS ,AMBULATORY TO TRIAGE WITH COMPLAINTS OF DIZZINESS, FATIGUE, SHORTNESS OF BREATH. PATIENT REPORTS SYMPTOMS STARTED A WHILE AGO, BUT HAVE GOTTEN WORSE THE PAST COUPLE DAYS. STATES SHE HAD BLOOD WORK DONE 1 WEEK AGO AND HAD A HEMOGLOBIN OF 9.3. STATES SHE IS SCHEDULED TO HAVEAN IRON INFUSION THIS UPCOMING Sunday documented in this encounter Plan of Treatment Not on file documented as of this encounter Procedures Procedure Name Priority Date/Time Associated Diagnosis Comments COVID-19 CORONAVIRUS RNA Routine 11/16/2020 9:00 PM CDT URINALYSIS AND REFLEX TO MICROSCOPIC AND CULTURE Routine 11/16/2020 8:45 PM CDT URINALYSIS, MICROSCOPIC ONLY Routine 11/16/2020 8:45 PM CDT EGFR STAT 11/16/2020 7:49 PM CDT DIFFERENTIAL AUTO STAT 11/16/2020 7:4 9 PM CDT CBC WITH AUTO DIFFERENTIAL STAT 11/16/2020 7:49 PM CDT MAGNESIUM Routine 11/16/2020 7:49 PM CDT COMPREHENSIVE METABOLIC PANEL STAT 11/16/2020 7:49 PM CDT ECG 12-LEAD Routine 11/16/2020 7:34 PM CDT documented in this encounter Results * COVID-19 Coronavirus RNA Nasopharyngeal (11/16/2020 9:00 PM CDT) COVID-19 RNA Negative Negative [facility] ([place]) Comment: Interpretive data: Synonyms for this test include: PCR and NAAT . ??This test is performed using the [employer] Xpert Xpress assay. This is a real-time RT-PCR test intended for the qualitative detection of nucleic acid from the SARS-CoV-2. This assay has been reviewed by the FDA for Emergency Use Authorization (EUA). The performance characteristics have been verified by the performing laboratory. Results must be considered in the clinical context and a negative result does not rule out infection. Interpretive data last revised April 01, 2020. First COVID-19 test? Yes [facility] ([place]) Employeed in healthcare? No [facility] ([place]) status? Yes [facility] ([place]) Group care resident? No [facility] ([place]) Hospitalized? No [facility] ([place]) Is patient in ICU? No [facility] ([place]) Symptomatic as defined by CDC? Yes [facility] ([place]) Nasopharyngeal 11/16/2020 9: 00 PM CDT 11/16/2020 9:11 PM CDT Narrative [facility]) - 11/16/2020 10:04 PM CDT What is the reason for testing?->Known exposure to confirmed or suspected COVID- 19 case Date of Symptom Onset->11/16/20 Silas Wayne MD LAB MICROBIOLOGY - GENERA L ORDERABLES Final Result [facility] ([place]) [facility] [place] [address] * (ABNORMAL) Urinalysis, microscopic only (11/16/2020 8:45 PM CDT) WBC, ur 0-5 0 - 5 /HPF [facility] ([place]) RBC, ur 0-2 0 - 2 /HPF [facility] ([place]) Epithelial cells, squamous, ur 1-5 0 - 5 /HPF [facility] ([place]) Bacteria, ur 2+(A) [facility] ([place]) Mucous, ur Present(A) [facility] ([place]) Culture Reflex Comment Reflex conditions for urine culture (WBC >10) not met. [facility] ([place]) Urine 11/16/2020 8:45 PM CDT 11/16/2020 9:00 PM CDT Silsa Wayne MD LAB URINE ORDERABLES Briana l Result [facility] ([place]) 1 [facility] [place] [address] * (ABNORMAL) Urinalysis reflex to microscopic and culture Urine (11/16/2020 8:45 PM CDT) Color, ur Yellow Yellow [facility] ([place]) Clarity, ur Clear Clear [facility] ([place]) Specific gravity, ur 1.025 1.010 - 1.025 [facility] ([place]) pH, urine 7.0 [facility] ([place]) Protein, ur ql 1+(A) [...] will be performed. [facility] ([place]) Urine 11/16/2020 8:45 PM CDT 11/16/2020 9:00 PM CDT Narrative [facility] ([place]) - 11/16/2020 9:04 PM CDT ?? Urine pH is affected by diet, medications, systemic acid-base disturbances, and renal tubular function. ??pH may affect urinary stone formation. ??For example, urine pH below 6.0 may help reduce the tendency for calcium phosphate stones and pH greater than 6.0 may reduce the tendency for uric acid stone formation. Source: [employer] Last revised 03-08-2017 Silas Wayne MD LAB MICROBIOLOGY - GENERA L ORDERABLES Final Result [facility] ([place]) [facility] [place] [address] * eGFR (11/16/2020 7:49 PM CDT) eGFR 134 mL/min/1.7 3 m2 [facility] ([place]) Comment: Interpretive Data Reference Interval Normal ?>/= [...] interpretive data was last reviewed 2020 Blood 11/16/2020 7:49 PM CDT 11/16/2020 8:04 PM CDT us Harry Santos MD LAB BLOOD ORDERABLES Final Res ult [facility] ([place]) 1 [facility] [place] [address] * Magnesium (11/16/2020 7:49 PM CDT) Magnesium 1.7 1.4 - 2.5 mg/dL [facility] ([place]) Blood 11/16/2020 7:49 PM CDT 11/16/2020 8:16 PM CDT us Silas Wayne MD LAB BLOOD ORDERABLES Briana narayan Result [facility] ([place]) 1 [facility] [place] [address] * (ABNORMAL) Differential, auto (11/16/2020 7:49 PM CDT) Neutrophil abs 8.7(H) 1.7 - 6.5 K/cumm [facility] ([place]) Imm gran abs 0.1 0.0 - 0.1 K/cumm [facility] ([place]) Lymphocyte abs 1.0 0.8 - 3.3 K/cumm [facility] ([place]) Monocyte abs 0.5 0.2 - 0.8 K/cumm [facility] ([place]) Eosinophil abs 0.1 0.0 - 0.5 K/cumm [facility] ([place]) Basophil abs 0.0 0.0 - 0.1 K/cumm [facility] ([place]) Neutrophil pct 83.9 % [facility] ([place]) Comment: Interpretive Data Percent cell count reference [...] was last revised on 2017. Lymphocyte pct 9.5 % [facility] ([place]) Comment: Interpretive Data Percent cell count reference ranges are not reported, since discordance with absolute values may lead to misinterpretation of CBC data. Current Interpretive Data was last revised on 2017. Monocyte pct 5.2 % [facility] ([place]) Comment: Interpretive Data [...] Data was last revised on 2017. Blood 11/16/2020 7:49 PM CDT 11/16/2020 8:04 PM CDT us Harry Santos MD LAB BLOOD ORDERABLES Final Res ult [facility] ([place]) [facility] [place] [address] * (ABNORMAL) Comprehensive metabolic panel (11/16/2020 7:49 PM CDT) Sodium 137 135 - 145 mmol/L [facility] ([place]) Potassium, pl 3.8 3.3 - 4.9 mmol/L [facility] ([place]) Chloride 102 97 - 110 mmol/L [facility] ([place]) CO2 23 22 - 32 mmol/L [facility] ([place]) Anion gap 12 2 - 15 mmol/L [facility] ([place]) BUN 7(L) 8 - 25 mg/dL [facility] ([place]) Creatinine 0.47(L) 0.60 - 1.10 mg/dL [facility] ([place]) Glucose 111 70 - 199 mg/dL [facility] ([place]) [...] interpretive data was last revised 2017. Calcium 9.3 8.5 - 10.3 mg/dL [facility] ([place]) Bilirubin, total 0.2 0.1 - 1.2 mg/dL [facility] ([place]) Protein, pl 6.8 6.5 - 8.5 g/dL [facility] ([place]) Albumin 3.6 3.5 - 5.0 g/dL [facility] ([place]) Alk phos 91 40 - 130 Units/L [facility] ([place]) ALT 15 7 - 45 Units/L [facility]) AST 18 10 - 45 Units/L [facility] ([place]) Blood 11/16/2020 7:49 PM CDT 11/16/2020 8:04 PM CDT us Harry Santos MD LAB BLOOD ORDERABLES Final Res ult [facility] ([place]) [facility] [place] [address] * (ABNORMAL) CBC with auto differential (11/16/2020 7:49 PM CDT) WBC 10.4(H) 3.8 - 9.9 K/cumm [facility] ([place]) Hgb 10.1(L) 11.9 - 15.5 g/dL [facility] ([place]) Hct 31.9(L) 35.6 - 45.5 % [facility] ([place]) Plt 280 150 - 400 K/cumm [facility] ([place]) MPV 9.7 9.1 - 12.3 fL [facility]) RBC 3.64(L) 3.90 - 5.20 M/cumm [facility] ([place]) MCV 87.6 81.3 - 96.4 fL [facility]) MCH 27.7 27.1 - 33.3 pg [facility]) MCHC 31.7(L) 32.3 - 35.7 g/dL [facility] ([place]) RDW CV 14.7 11.1 - 14.9 % [facility]) RDW SD 46.7 35.7 - 48.1 fL [facility]) NRBC abs 0.00 0.00 - 0.01 K/cumm [facility] ([place]) Blood 11/16/2020 7:49 PM CDT 11/16/2020 8:04 PM CDT Harry Santos MD LAB BLOOD ORDERABLES Final Res ult Performing Organization Address City/[facility] Co de Phone Number [facility] ([place]) [facility] [place] [address] * ECG 12 lead (11/16/2020 7:34 PM CDT) 11/16/2020 7:34 PM CDT Narrative [facility] - 11/17/2020 9:01 AM CDT Vent Rate: 90 bpm RR Interval: 664 msec NM Interval: 141 msec QRS Duration: 80 msec QT Interval: 346 msec QTC Interval: 394 msec P-R-T Dawson: 29 - 7 - 4 degrees SINUS RHYTHM NORMAL ECG No change from prior EKG Electronically Signed By: Tristan Edmondson MD Harry Santos MD ECG ORDERABLES Final Result Performing Organization Address [facility] de Phone Number [facility] documented in this encounter Visit Diagnoses Not on filedocumented in this encounter Additional Health Concerns Infection Onset Date Last Indicated Resolved Time COVID: Suspected 11/16/2020 11/16/2020 11/16/2020 10:05 PM CDT documented as of this encounter Care Teams Laborer [employer] Relationship Specialty [place] [id number] [place] [address] PCP - General 07/04/19 [place] [address] [place] [address] 11/16/18 Ernie Shaw MD [address] [place] [address] Yard Laborer Obstetrics and Gynecology 06/10/20 documented as of this encounter
--- OUTSIDE RECORDS SUMMARY | 2024-02-24 20:04 | XMS_ITS | Encounter Summary ---
Author Organization [facility] Healthcare Address [address] [place] [address] Care Team Providers Care Sweat Band Sewer Name Role Phone Huseyin Dangelo MD Unavailable [phone] Brian Mon MD Primary Care Provider + Ernie Shaw MD Unavailable [phone] Reason for Visit * Reason Comments Vaginal Bleeding - Encounter Details Date Type Department Care Team (Latest Contact Info) Description 11/21/2020 8:58 PM CDT - 11/21/2020 11:00 PM CDT Hospital Encounter [address] [address] Silas Lazo MD [address] [id number] Discharge Disposition: Discharge to home or self [...] Sign Reading Time Taken Comments Blood Pressure 121/75 11/21/2020 9:18 PM CDT Pulse 115 11/21/2020 9:18 PM CDT Temperature 37 ??C (98.6 ??F) 11/21/2020 9:18 PM CDT Respiratory Rate 18 11/21/2020 9:18 PM CDT Oxygen Saturation 99% 11/21/2020 9:18 PM CDT Inhaled Oxygen Concentration - - Weight - - Height - - Body Mass Index - - documented in this encounter Discharge Diagnoses Diagnosis Antepartum hemorrhage, unspecified, third trimester - ANTEPARTUM HEMORRHAGE, UNSPECIFIED, THIRD TRIMESTER 30 weeks gestation of - 30 WEEKS GESTATION OF related renal disease, third trimester - RELATED RENAL DISEASE, THIRD TRIMESTER Other mental disorders complicating , third trimester - OTHER MENTAL DISORDERS COMPLICATING , THIRD TRIMESTER Anxiety disorder, unspecified - ANXIETY DISORDER, UNSPECIFIED 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) - GLOMERULAR DISEASE IN SYSTEMIC LUPUS ERYTHEMATOSUS Other specified related conditions, third trimester - OTHER SPECIFIED RELATED CONDITIONS, THIRD TRIMESTER Diseases of the respiratory system complicating , third trimester - DISEASES OF THE RESPIRATORY SYSTEM COMPLICATING , THIRD TRIMESTER Unspecified asthma, uncomplicated - UNSPECIFIED ASTHMA, UNCOMPLICATED Attention-deficit hyperactivity disorder, unspecified type - ATTENTION-DEFICIT HYPERACTIVITY DISORDER, UNSPECIFIED TYPE Diseases of the nervous system complicating , third trimester - DISEASES OF THE NERVOUS SYSTEM COMPLICATING , THIRD TRIMESTER Rheumatoid arthritis, unspecified (HCC) - RHEUMATOID ARTHRITIS, UNSPECIFIED Other viral diseases complicating , third trimester - OTHER VIRAL DISEASES COMPLICATING , THIRD TRIMESTER Unspecified adrenocortical insufficiency (HCC) - UNSPECIFIED ADRENOCORTICAL INSUFFICIENCY 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 apprentice (current) use of aspirin - SKILLED NURSING (CURRENT) USE OF ASPIRIN 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 apprentice (current) use of systemic steroids - SKILLED NURSING (CURRENT) USE OF SYSTEMIC STEROIDS Other proposal manager (current) drug therapy - OTHER APPLIED MATHEMATICIAN (CURRENT) DRUG THERAPY Personal history of nicotine dependence - PERSONAL HISTORY OF NICOTINE DEPENDENCE Allergy status to penicillin - ALLERGY STATUS TO PENICILLIN Allergy status to other antibiotic agents - ALLERGY STATUS TO OTHER ANTIBIOTIC AGENTS Allergy status to other drugs, medicaments and biological substances - ALLERGY STATUS TO OTHER DRUGS, MEDICAMENTS AND BIOLOGICAL SUBSTANCES documented in this encounter Medications at Time of Discharge aspirin 81 mg enteric coated tablet Take 81 mg by mouth daily 1 clobetasoL (TEMOVATE) 0.05 % ointment Apply topically 2 (two) times a day 30 g 1 11/17/2020 1 ferrous gluconate (ferrous gluconate) 324 mg [...] MOUTH DAILY 60 tablet 10/23/2020 1 vit no.[id number] (Classic ) 28 mg iron- 800 mcg [...] H&P Notes * Maura Moreno MD - 11/21/2020 9:34 PM CDT Obstetrics H&P Chief Complaint: vaginal bleeding Estimated Date of Delivery: 01/27/21 Provider: RENETTA HPI: Carito Madison is a 30 y.o. 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 She has had 3 prior episodes of VB during this in setting of placenta previa, with priordiscussions of inpatient management and left AMA back on 10/19. She was scheduled to have an iron infusion on 11/20, but did not attend as she was concerned of sideeffects from the infusion. Patient Denies: [x] Contractions [x] Shortness of [...] 1 2017 Past Medical History: Diagnosis Date Anemia Anxiety Anxiety disorder currently on no meds Asthma never hospitalized/intubated. albuterol as needed Chronic diarrhea Chronic kidney disease lupus nephritis Depression Headache, tension-type Lupus (CMS/HCC) (HCC) PONV (postoperative nausea and vomiting) 07/13/2015 Rheumatoid arthritis (HCC) Seizures (CMS/HCC) (HCC) reaction to a medication Past Surgical History: Procedure Laterality Date APPENDECTOMY COLONOSCOPY 07/29/2019 1st DILATION AND CURETTAGE OF UTERUS 09/2017 ESOPHAGOGASTRODUODENOSCOPY 07/2019 HAND SURGERY WRIST SURGERY Right 12/09/2018 rt wrist median nerve repair, allograft nerve wrap application Social History Socioeconomic History Marital status: Spouse name: Not on file Number of children: Not on file Years of education: Not on file Highest education level: Not on file Tobacco Use Smoking status: Former Smoker Quit date: 12/28/2018 Years since quittin.9 Smokeless tobacco: Never Used Vaping Use Vaping Use: Never used Substance and Sexual Activity Alcohol use: Yes Comment: occasionally Drug use: Not Currently Types: Marijuana Sexual activity: Yes Partners: Male Allergies Allergen Reactions Macrobid [Nitrofurantoin Monohyd/M-Cryst] Rash and Blisters Rash and Blisters in her mouth. Methylprednisolone Anaphylaxis and Syncope Syncope Penicillins Hives and Rash Prescribed keflex 08/2020 Amoxicillin Rash Prescribed keflex in 08/2020 Azathioprine Hives Escitalopram Other (See comments) and Rash Caused seizures Caused seizures Caused seizures Reglan [Metoclopramide] Dizziness Sulfamethoxazole-Trimethoprim Other (See comments) Cannot take bactrim because of lupus Venlafaxine Itching HOME MEDICATIONS : aspirin 81 mg enteric coated tablet clobetasoL (TEMOVATE) 0.05 % ointment ferrous gluconate (ferrous gluconate) 324 mg (37.5 mg of elemental iron) tablet hydrOXYchloroQUINE (PLAQUENIL) 200 mg tablet multivitamin capsule omeprazole (PriLOSEC) 20 mg capsule ondansetron ODT (ZOFRAN-ODT) 8 mg disintegrating tablet polyethylene glycol (MIRALAX) 17 gram/dose powder predniSONE (DELTASONE) 5 mg tablet vit no.190-[id number]-[id number] (Classic ) 28 mg iron- 800 mcg tablet sertraline (ZOLOFT) 25 mg tablet valACYclovir (VALTREX) 500 mg tablet Review of Sys: Negative except per HPI Vitals: Temp: [37 ??C (98.6 ??F)] 37 ??C (98.6 ??F) Pulse: [115] 115 Resp: [18] 18 BP: (121)/(75) 121/75 Physical Exam: General: NAD, mood appropriate Abdomen: Gravid Speculum Exam: Deferred Monitoring: Baseline: 135 bpm, Variability: Moderate, Accelerations: Present and Decelerations: None Uterine Activity: No contractions seen on toco Interpretation: Reactive Labs: Lab Results Component Value Date ABORH A Positive 10/18/2020 IDCOOMB Negative 10/18/2020 Assessment and Plan Carito Madison is a 30 y.o. female at 30w3d who presented with vaginal bleeding with Hx of placenta previa. Discussed extensively our recommendation to be admitted to the hospital given her multiple episodes of vaginal bleeding. Risks of possible antepartum hemorrhage and associated neona alanna/maternal morbidity/mortality were discussed, particularly given patient's distance from [facility] (45minute commute), and patient voiced understanding. She states that she is unable to leave work for a prolonged hospital admission, and plans to follow-up with MFM at her scheduled appointment on 11/23. Initially discussed plan for speculum exam, but patient decided to leave to go home at 2300. Requested patient return if bleeding returns or any additional symptoms of labor occur, patient agreed. Plan discussed with Dr. Lazo. Michael Santana MD 11/21/20 MFM Fellow Attestation I have discussed Carito Madison with the resident, on 11/22/2020. I have reviewed the treatment plan and recommendations. I agree with the findings and the plan of care as documented in the note. We recommended admission and further evaluation, but she declined, understanding the serious risk to her and her fetus. Silas Lazo MD I have reviewed and agree with the documentation by the resident/PARACHUTE REPAIRER. I did not see the patient. Maura Moreno MD documented in this encounter Procedure Notes * Maura Moreno MD - 11/21/2020 11:00 PM CDT Indications: Patient is a 30 y.o. female at 30w3d who presented with vaginal bleeding with Hx of placenta previa. FHR Baseline: 135 Variability: moderate Reactive: Yes Contractions: absent Reactive from 2054 to 2329. I have reviewed the NST and instructed the RN to take the patient off the monitor. Michael Santana MD 11:41 PM I have reviewed the NST and agree with documentation above. Maura Moreno MD documented in this encounter Nursing Notes * Tricia Nolasco RN - 11/21/2020 11:00 PM CDT Patient seen in [facility] for an episode of bleeding at home with a known previa. Patient states that this is her fourth bleed. VSS, FHTs reactive. No other complaints. Patient seen by Md Santana. Patient declines to be admitted to the hospital at this time. Patient declined speculum exam. Patient discharged per Dr. Lazo with strict return precautions. documented in this encounter Plan of [...] trimester documented in this encounter Care Teams Sweat Band Sewer Relationship Specialty [place] [address] [address] [place] [id number] PCP - General 07/04/19 [place] [address] [address] [place] [address] 11/16/18 Ernie Shaw MD [address] [place] [address] DR [address] [facility] [place] [address] Ham Passer Obstetrics and Gynecology 06/10/20 documented as of this encounter
--- OUTSIDE RECORDS SUMMARY | 2024-02-24 20:04 | XMS_ITS | Encounter Summary ---
Author Organization [facility] Address [address] [place] [address] Phone Care Team Providers Care Gage Designer Name Role Phone Huseyin Dangelo MD Unavailable [phone] Brian Mon MD Primary Care Provider + Ernie Shaw MD Unavailable [phone] Reason for Referral * Diagnostic Imaging (Routine) - Closed Specialty Diagnoses / Procedures Referred By Contac t Referred To Contact Diagnoses Adrenal insufficiency (HCC) Placenta previa specified as without hemorrhage in second trimester Supervision of high-risk , unspecified trimester Procedures US Ob Follow Up Margarita Marie MD Phone: tel: fax: [facility] (All Locations) Referral ID Status Reason Start Date Expiration Date Visits Re quested Visits Authorized [id number] Closed 11/23/2020 12/23/2021 1 1 Reason for Visit * Reason Comments Routine Visit Encounter Details Date Type Department Care Team (Late st Contact Info) Description 11/23/2020 1:30 PM CDT Office Visit [facility] Maternal- Medicine [facility] [address] [facility] [address] [place] [address] Margarita Marie MD [address] [place] [id number] [place] [phone] [place] [address] Adrenal insufficiency (CMS/HCC) (HCC) (Primary Dx); Secondary adrenal insufficiency (CMS/HCC) (HCC); Rectal bleeding; Marginal insertion of umbilical cord affecting management of mother in second trimester; Miscarriage; Placenta previa specified as without hemorrhage in second trimester; Supervision of high-risk , unspecified trimester; Anemia during in third trimester; Generalized anxiety disorder; Lupus (CMS/HCC) (HCC); Polyhydramnios in third trimester, not [...] Reading Time Taken Comments Blood Pressure 112/68 11/23/2020 1:48 PM CDT Pulse 101 11/23/2020 1:48 PM CDT Temperature 36.5 ??C (97.7 ??F) 11/23/2020 1:48 PM CD T Respiratory Rate 16 11/23/2020 1:48 PM CDT Oxygen Saturation 98% 11/23/2020 1:48 PM CDT Inhaled Oxygen Concentration - - Weight 84.6 kg (186 lb 6.4 oz) 11/23/2020 1:48 P M CDT Height 157.5 cm (5' 2 ) 11/23/2020 1:48 PM CDT Body Mass Index 34.09 11/23/2020 1:48 PM CDT documented in this encounter Progress Notes * Margarita Marie MD - 11/23/2020 1:30 PM CDT [facility] Return Visit 11/24/2020 Carito Spence is a 30 y.o. at 30w5d who is here for a return OB visit. Her iscomplicated by placenta previa, marginal cord insert, anxiety (zolfot 25mg), adrenal insufficiency,Lupus, anemia. Subjective: She reports a significant amount of vaginal pressure today. No contractions, cramping, LOF or bleeding. She was seen in triage 2 days ago for vaginal bleeding in the setting of a placentaprevia and unfortunately had to leave although admission was recommended. Did have contractions a few days ago. She has been on the fence about an iron transfusion as she is worried about a transfusion reaction but she is unable to tolerate po iron. Reports no constipation but has had 5 bowel movements today (no blood but reports loss stool). She is also worried about a CS in the event her previadoes not resolve. 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 Objective: BP 112/68 Pulse 101 Temp 36.5 ??C (97.7 ??F) Resp 16 Ht 157.5 cm (5' 2 ) Wt 186 lb 6.4 oz(84.6 kg) LMP (LMP Unknown) Comment: LMP end of Mar 2020 SpO2 98% BMI 34.09 kg/m?? General: NAD Abdomen: Soft, gravid, NT Extremities: WWP, no edema SSE: cervix closed visually, no bleeding, no pooling, no abnormal discharge No SVE performed due to previa Assessment/Plan: Carito Spence is a 30 y.o. at 30w5d with a complicated by: Problem List Endocrine and Metabolic Adrenal insufficiency (CMS/HCC) (HCC) - Primary Overview Secondary to chronic steroid treatment. She is currently on prednisone for her lupus 5 mg daily. We discussed that she will likely require stress dose steroids at delivery Relevant Orders US Ob Follow Up Secondary adrenal insufficiency (CMS/HCC) (HCC) Overview Carito [...] [ ] Endocrinology appt scheduled for 12/16 Gastrointestinal and Abdominal Rectal bleeding Overview 11/16: Pt reports bleeding with most all BM for the last several weeks. She has BM 1-2x per day. States she has been straining and having pain 2/2 constipation from her PO iron and zofran. No history of hemorrhoids. No external hemorrhoids. Plan per Dr. Shukla is for admission for evaluation of bleeding in the setting of a known previa anddropping H&H with GI consult. Following extensive counseling regarding risks of bleeding pt declines admission and wishes to proceed with iron infusion. 11/23: Denies any rectal bleeding, still on the fence about an iron transfusion but is considering it. Gravid and Miscarriage Overview S/p miscarriage x with 2nd trimester loss,2, APLS and thrombophilia w/u neg S/p counseling Normal cervical length Supervision of high-risk , unspecified trimester Overview [...] [NR ], GC/CT [negative/negative] [x] Genetic Screening: [place] low risk 07/09 [x] CBC/Hgb 11.7/35.0/306 [x] [...] aware if normal result [] Flu Shot (Sep-Jan): [x] Tdap (27-36wks): 11/23/2020 [x] COVID Vaccine: s/p both doses 3rd Tri Labs: [] CBC/HIV/RPR: next visit [] GBS: [x] COVID testing: set up for 01/03 at [facility] [] hibiclens Counselling [x] MOD: Current plan is for C/S at 36 weeks in the setting of a previa with 4 prior bleeds: will reschedule 36w0d which is 12/30. She has already received BMZ and would not be a candidate for rescue BMZ [x] Place of delivery: [facility] [] MOC: [] Method of feeding: [] Associate Buyer: [] PP Depression Discussed: Relevant Orders US Ob Follow Up Marginal insertion of umbilical cord affecting management [...] GI consult. Dr. Shukla to room to counselor camp patient regarding risks of daily bleeding in [...] anxiety re: anesthesia at time of delivery) Current Assessment & Plan Ms. Spence had questions regarding previa today [...] accreta. She asked what her biggest risk iswith a previa and we reviewed that it is bleeding. I recommended today for inpatient hospitalization given her 4 prior bleeds, most recently 2 days ago, and she declines. Relevant Orders US Ob Follow Up Hematology and Neoplasia Anemia during in third trimester Overview 11/09/20 [facility] POCT Hgb 9.3 - pt reported fatigue and requested iron infusion Further review of Hgb on 10/19/20 [10.3] and 11/16/20 [10.1] Ferritin ordered for 11/23/20 and pt to follow up on 11/23/20 -- Ferritin 10 11/23/2020 Iron infusion scheduled 11/30/20 @ 0900 (date per pt preference) Current Assessment & Plan Counseling today that she is iron deficient [...] iron infusion which we will schedule today. Mental Health Generalized anxiety disorder Overview Ms spence reports severe anxiety and near panic in this thus far. This is not a new issuefor her, but it has significantly worsened in . S/p counseling at initial visit Plan: -[facility] referral, following -Zoloft 25 mg/day -psych referral Multi-system (Lupus, Sarcoid...) Lupus (CMS/HCC) ([facility]) Overview S/p counseling at initial visit 11/16: [...] fetus Overview Mild polyhydramnios previously noted and counseled diabetic screen normal 10/15: fluid normal - Vaginal pressure: SSE today (no digital exam) given her complaints of vaginal pressure- no evidence of PTL as cervix appears closed and no bleeding present. Strict PTL and bleeding precautions given. RTC in 2 weeks for MFM, growth, BPP. To start surveillance at 32 weeks- discussed today. Margarito Yates RN present for visit. Margarita Marie MD 11/24/2020 documented in this encounter Miscellaneous Notes * Assessment & Plan Note - Margarita Marie MD - 11/23/2020 5:21 PM CDT Associated Problem(s): Placenta previa Ms. Spence had questions regarding previa today [...] accreta. She asked what her biggest risk iswith a previa and we reviewed that it is bleeding. I recommended today for inpatient hospitalization given her 4 prior bleeds, most recently 2 days ago, and she declines. * Assessment & Plan Note - Margarita Marie MD - 11/23/2020 5:17 PM CDT Associated Problem(s): Anemia during in third trimester Counseling today that she is iron deficient [...] iron infusion which we will schedule today. documented in this encounter Plan of Treatment Not on file documented as of this encounter Results * US Ob Follow [...] Diagnosis Adrenal insufficiency (HCC)- Primary Glucocorticoid deficiency Secondary adrenal insufficiency (HCC) Rectal bleeding Hemorrhage of rectum and anus Marginal insertion of umbilical cord affecting management of mother in second trimester Miscarriage Unspecified spontaneous without mention of complication Placenta previa specified as without hemorrhage in second trimester Supervision of high-risk , unspecified trimester Anemia during in third trimester Generalized anxiety disorder Lupus Systemic lupus erythematosus Polyhydramnios in third trimester, not applicable or unspecified fetus documented in this encounter Orders Immunization/Injection Count Last Ordered Date First Ordered Date TDAP VACCINE GREATER THAN OR EQUAL TO 7YO IM 1 11/23/2020 documented in this encounter Care Teams Gage Designer Relationship Specialty [place] [address] [address] [place] [address] PCP - General 07/04/19 [place] [address] [address] [place] [phone] 11/16/18 Ernie Shaw MD [address] [facility] [address] [place] [id number] Health Plan Manager Obstetrics and Gynecology 06/10/20 documented as of this encounter
--- OUTSIDE RECORDS SUMMARY | 2024-02-24 20:04 | XMS_ITS | Encounter Summary ---
Author Organization [facility] Address [address] [place] [address] Phone Care Team Providers Care Thermite Welder Name Role Phone Huseyin Dangelo MD Unavailable [phone] Brian Mon MD Primary Care Provider + Ernie Shaw MD Unavailable [phone] Reason for Visit * Reason Onset Date Comments Vaginal Bleeding 11/18/2020 Encounter Details Date Type Department Care Team (Late st Contact Info) Description 11/18/2020 Telephone [facility] Maternal- Medicine [facility] 7th Floor [address] [place] [address] Anh Marin, RN Vaginal Bleeding Social History Tobacco Use [...] Telephone Encounter - Anh Marin RN - 11/18/2020 8:13 AM CDT Pt. Calling. States she woke up this am ~0530 and had some BRVB on her tissue when wiping. Pt. Advised that she should seek evaluation at the [facility]. Pt. hesitant to follow these directions, however after conversation of our threshold for her specific case and also that Babs PINON also recommends prompt evaluation, pt. Agreeable to seeking care. Pt. Also asking if they would deliver at this gestational age. Lengthy discussion on MD decision todeliver takes into account many factors, both maternal and . Pt. Verbalized understanding and has no further questions at this time. documented in this encounter Plan of Treatment Not on file documented as of this encounter Visit Diagnoses Not on filedocumented in this encounter Care Teams Thermite Welder Relationship Specialty [place] [address] [address] [place] [address] PCP - General 07/04/19 [place] [address] [address] [place] [address] 11/16/18 Ernie Shaw MD [address] [place] [address] DR AUG[address] [place] [address] Edge Trimmer Mechanic Obstetrics and Gynecology 06/10/20 documented as of this encounter
--- OUTSIDE RECORDS SUMMARY | 2024-02-24 20:04 | XMS_ITS | Encounter Summary ---
Author Organization [facility] Healthcare Address [address] [place] [address] Care Team Providers Care Green Building Design Specialist Name Role Phone Huseyin Dangelo MD Unavailable [phone] Brian Mon MD Primary Care Provider + Ernie Shaw MD Unavailable [phone] Reason for Visit * Reason Onset Date Comments Outgoing Call 11/22/2020 post [facility] visit f/u Encounter Details Date Type Department Care Team (Late st Contact Info) Description 11/22/[address] [address] Amy Rodriges RN Outgoing Call (post [facility] visit f/u) Social History Tobacco Use Types [...] Telephone Encounter - Amy Rodriges RN - 11/22/2020 12:39 PM CDT Contacted patient for post [facility] visit f/u for VB with known previa-declined admission. Patient states no further bleeding noted. Denies cramps, contrs, LOF, vaginal dc. States baby is moving a lot today. She is taking it easy today. Patient has f/u tomorrows. Patient able to teach back bleeding and PTL precautions. No further questions at this time. documented in this encounter Plan of Treatment Not on file documented as of this encounter Visit Diagnoses Not on filedocumented in this encounter Care Teams Green Building Design Specialist Relationship Specialty [place] [address] [address] [facility] [place] [address] PCP - General 07/04/19 [place] [address] [address] [facility] [place] [address] 11/16/18 Ernie Shaw MD [address] [place] [address] [address] [place] [address] Cistern Room Operator Obstetrics and Gynecology 06/10/20 documented as of this encounter
--- OUTSIDE RECORDS SUMMARY | 2024-02-24 20:04 | XMS_ITS | Encounter Summary ---
Author Organization [facility] Address [address] [place] [address] Phone Care Team Providers Care Professor Of Philosophy Name Role Phone Huseyin Dangelo MD Unavailable [phone] Brian Mon MD Primary Care Provider + Ernie Shaw MD Unavailable [phone] Encounter Details Date Type Department Care Team (Latest Contact Info) Description 11/30/2020 4:20 PM CDT Telemedicine [facility] Endocrinology Metabolism and Lipid [address] [facility] Advanced Medicine 5th [place] [address] [place] [address] Darius Fernandez MD [address] [facility] [address] [place] [address] Adrenal insufficiency (CMS/HCC) (HCC) (Primary [...] in a chcf (including now)? No 01/01/2021 Rienzi Depression Scale Answer Date Recorded Rienzi Depression Scale Total 11 01/11/2021 The thought of harming myself has occurred to me . Never 01/11/2021 Comments Yes Sex and Gender Information Value [...] - Inhaled Oxygen Concentration - - Weight 83.9 kg (185 lb) 11/30/2020 3:21 PM CDT Height 157.5 cm (5' 2 ) 11/30/2020 3:21 PM CDT Body Mass Index 33.84 11/30/2020 3:21 PM CDT documented in this encounter Progress Notes * Codi Fernandez MD - 11/30/2020 4:20 PM CDT Endocrine Patient Visit This was a telemedicine visit with Umer anglin which took place via real-time video connection with Zoom. During the visit, I was located in the office and the patient [facility]. The patient visit started at 4:20 PM and ended at 4:32 PM. My total encounter time on 11/30/2020 was 30 minutes which was spent in the activities [...] or video visit during the COVID-19 public health emergency to the patient. After [...] Initial visit on 10/24/2019 Patient is a 30 y.o. Lady with history of lupus which has required detention steriod use for 2.5 years. Has required high Dose in the past up to 60 mg daily. 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 She is currently. She is scheduled for C- section in 4 weeks. She is currently on 5 mg of prednisone. Had a recent morning cortisol of 5.8 mcg/dL ( after holdingprednisone for 24 hours) She would like to know is she can stop prednisone or if she need to do a stimulation test. Review of Systems Review of systems per HPI and otherwise all other systems are negative. OBJECTIVES Physical exam: Ht 157.5 cm (5' 2 ) Wt 83.9 kg (185 lb) LMP (LMP Unknown) Comment: LMP end of Mar 2020 BMI 33.84 kg/m?? Past Medical History: Diagnosis Date ??? Anemia ??? Anxiety ??? Anxiety disorder currently on no meds ??? Asthma never hospitalized/intubated. albuterol as needed ??? Chronic diarrhea ??? Chronic kidney disease lupus nephritis ??? Depression ??? Headache, tension-type ??? Lupus (CMS/HCC) (HCC) ??? PONV (postoperative nausea and vomiting) ??? 07/13/2015 ??? Rheumatoid arthritis (HCC) ??? Seizures (CMS/HCC) ([facility]) reaction to a medication Past Surgical [...] Stroke Father ??? Colon cancer Other Labs: Results for UMER MADISON ( ) as of 06/22/2020 17:50 Ref. Range 06/09/2020 15:55 TSH Latest Ref Range: 0.30 - 4.20 mcIUnit/mL 1.10 Results for UMER MADISON ( ) as of 06/22/2020 17:50 Ref. Range 06/10/2020 09:18 Sodium Latest Ref Range: 135 - 145 mmol/L 138 Potassium, pl Latest Ref Range: 3.3 - 4.9 mmol/L 3.8 Chloride Latest Ref Range: 97 - 110 mmol/L 102 CO2 Latest Ref Range: 22 - 32 mmol/L 26 Anion gap Latest Ref Range: 2 - 15 mmol/L 10 BUN Latest Ref Range: 8 - 25 mg/dL 10 Creatinine Latest Ref Range: 0.60 - 1.10 mg/dL 0.55 (L) Glucose Latest Ref Range: 70 - 199 mg/dL 84 Calcium Latest Ref Range: 8.5 - 10.3 mg/dL 9.5 Bilirubin, total Latest Ref Range: 0.1 - 1.2 mg/dL 0.3 Protein, pl Latest Ref Range: 6.5 - 8.5 g/dL 7.0 Albumin Latest Ref Range: 3.5 - 5.0 g/dL 3.9 GFR Latest Units: mL/min/1.73 m2 128 Alk phos Latest Ref Range: 40 - 130 Units/L 49 AST Latest Ref Range: 10 - 45 Units/L 19 ALT Latest Ref Range: 7 - 45 Units/L 13 ?? Cosyntropin stimulation test: Results for UMER MADISON ( ) as of 06/22/2020 17:50 Ref. Range 03/22/2020 09:03 03/22/2020 10:03 Cortisol, base Latest Ref Range: 4.8 - 19.5 mcg/dl 2.2 (L) Cortisol, 60 min Latest Ref Range: 4.8 - 19.5 mcg/dl 5.7 Cortisol, 30 min Latest Ref Range: 4.8 - 19.5 mcg/dl 5.5 ACTH Latest Units: pg/mL 11 Component Latest Ref Rng & Units 11/23/2020 7:46 AM Ferritin 15 - 150 ng/mL 10 (L) Vitamin D, 25-hydroxy 30 - 80 ng/mL 28 (L) Cortisol 4.8 - 19.5 mcg/dl 5.8 ACTH pg/mL 25 DHEA-S 98.8 - 340.0 mcg/dL 7.2 (L) IMAGING: EXAMINATION: Magnetic resonance imaging (MRI) of [...] the patient's seizures. Assessment/Plan: Patient is a 30 y.o. 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 Has required high Dose in the past up to 60 mg daily. 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 Current prednisone dose is 5 mg daily. Morning cortisol is 5.8mcg/dL. Dicussed with Ms. Madison that her current cortisol level is suggestive of persistent adrenal insuffiencey. Advise increasing prednisone dose to 7.5 mg daily until delivery. During delivery, recommend IV infusion of hydrocortisone 200 mg/24 hours and 15 mg/daily of prednisone for the following 48 hours. After that, can decrease the dose to 5 mg daily. Codi Fernandez MD Division of Endocrinology, Metabolism and Lipid Research [facility] documented in this encounter Miscellaneous Notes * Addendum Note - Codi Fernandez MD - 11/30/2020 4:20 PM CDTAddended by: CODI FERNANDEZ on: 06/21/2021 09:33 AM Modules accepted: Orders documented in this encounter Plan of Treatment Not on file documented as of this encounter Visit Diagnoses Diagnosis Adrenal insufficiency (HCC)- Primary Glucocorticoid deficiency documented in this encounter Additional Health Concerns Infection Onset Date Last Indicated Resolved Time COVID: Suspected 12/29/2020 12/29/2020 12/29/2020 1:30 PM CDT COVID: Suspected 01/14/2021 01/14/2021 01/28/2021 3:05 AM TOWER ERECTOR COVID: Suspected 02/13/2021 02/13/2021 02/13/2021 4:25 AM TOWER ERECTOR documented as of this encounter Care Teams Professor Of Philosophy Relationship Specialty [place] [address] [place] [address] PCP - General 07/04/19 [place] [address] [address] [place] [address] 11/16/18 Ernie Shaw MD [address] [place] [address] [address] [place] [address] Manager Poker Obstetrics and Gynecology 06/10/20 documented as of this encounter
--- OUTSIDE RECORDS SUMMARY | 2024-02-24 20:04 | XMS_ITS | Encounter Summary ---
Author Organization [facility] [employer] [facility] Address [address] [place] [address] Phone Care Team Providers Care Act English Tutor Name Role Phone Huseyin Dangelo MD Unavailable [phone] Brian Mon MD Primary Care Provider + Ernie Shaw MD Unavailable [phone] Encounter Details Date Type Department Care Team (Late st Contact Info) Description 11/30/2020 Telephone [facility] Maternal- Medicine [address] [facility] 7th Floor [address] [place] [address] Anh Marin, PRO Social History [...] Telephone Encounter - Anh Marin RN - 11/30/2020 9:11 AM CDT Pt. Calling with multiple questions regarding care. Requesting additional US this week or to speak with a provider. Spoke with Babs Rodríguez and agrees plan for US on 12/06 is best for pt. Care and nothing sooner will give us additional information that we are seeking. Pt. Requests MD to call her. Message out to Dr. Marie (as she is the last provider to see pt.) to inquire about calling pt. To help pt. Have questions answered. documented in this encounter Plan of Treatment Not on file documented as of this encounter Visit Diagnoses Not on filedocumented in this encounter Care Teams Act English Tutor Relationship Specialty [place] [address] [address] [place] [address] PCP - General 07/04/19 [place] [address] [address] [place] [address] 11/16/18 Ernie Shaw MD [address] [place] [address] [address] [place] [address] Bilingual Office Assistant Obstetrics and Gynecology 06/10/20 documented as of this encounter
--- OUTSIDE RECORDS SUMMARY | 2024-02-24 20:04 | XMS_ITS | Encounter Summary ---
Author Organization [facility] Healthcare Address [address] [place] [address] Care Team Providers Care Blast Hole Driller Name Role Phone Huseyin Dangelo MD Unavailable [phone] Brian Mon MD Primary Care Provider + Ernie Shaw MD Unavailable [phone] Encounter Details Date Type Department Care Team (Late st Contact Info) Description 11/23/2020 7:45 AM CDT Lab [address] [address] Darius Fernandez MD [id number] [place] [address] Adrenal insufficiency (CMS/HCC) (HCC); Fatigue, unspecified type; Vitamin D deficiency Discharge Disposition: Discharge to home or self [...] Procedure Name Priority Date/Time Associated Diagnosis Comments VITAMIN D 25 HYDROXY Routine 11/23/2020 7:46 AM CDT Adrenal insufficiency (CMS/HCC) (HCC) Fatigue, unspecified type DHEA-SULFATE Routine 11/23/2020 7:46 AM CDT Adrenal insufficiency (CMS/HCC) (HCC) ACTH Routine 11/23/2020 7:46 AM CDT Adrenal insufficiency (CMS/HCC) (HCC) FERRITIN Routine 11/23/2020 7:46 AM CDT Adrenal insufficiency (CMS/HCC) (HCC) Fatigue, unspecified type CORTISOL Routine 11/23/2020 7:46 AM CDT Adrenal insufficiency (CMS/HCC) (HCC) documented in this encounter Results * (ABNORMAL) DHEA-sulfate (11/23/2020 7:46 AM CDT) DHEA-S 7.2(L) 98.8 - 340.0 mcg/dL [facility] ([place]) Comment:Testing performed by : [facility], [address] [facility] [place]., [address] Blood 11/23/2020 7:46 AM CDT 11/23/2020 3:03 PM CDT us Darius Fernandez MD LAB BLOOD ORDERABLES Final Resul t [facility] ([place]) 1 [facility] Department [place] [address] * ACTH (11/23/2020 7:46 AM CDT) ACTH 25 pg/mL [facility] ([place]) Comment: REFERENCE VALUE 7.2-63 (a.m. collection) Test Performed by: [facility] [address] [place] [address] English As A Second Language Teacher: Dima Travis M.D. Ph.D.; CLIA# [id number] Blood 11/23/2020 7:46 AM CDT 11/23/2020 8:01 AM CDT Darius Fernandez MD LAB BLOOD ORDERABLES Final Resul t Performing Organization Address City/[facility] Co de Phone Number [facility] ([place]) 1 [facility] [place] [address] * Cortisol (11/23/2020 7:46 AM CDT) Cortisol 5.8 4.8 - 19.5 mcg/dl [facility] ([place]) Comment: Interpretive Data Normal Range: ??4.8 - 19.5 mcg/dL; ??Evening: ??Half of morning value. ?? This analyte undergoes marked diurnal variation. ??Ranges indicated apply to morning specimens. ?? Current interpretive data was last revised 2018. Testing performed by: [facility], [address] [place] [address], [id number] Blood 11/23/2020 7:46 AM CDT 11/23/2020 9:26 AM CDT Narrative [facility] ([place]) - 11/23/2020 11:10 AM CDT 8 am Cortisol Darius Fernandez MD LAB BLOOD ORDERABLES Final Resul t Performing Organization Address City/[facility]/ZIP Co de Phone Number [facility] ([place]) 1 [facility] [place] [address] * (ABNORMAL) Ferritin (11/23/2020 7:46 AM CDT) Ferritin 10(L) 15 - 150 ng/mL [facility] ([place]) Blood 11/23/2020 7:46 AM CDT 11/23/2020 8:21 AM CDT us Darius Fernandez MD LAB BLOOD ORDERABLES Final Resul t Performing Organization Address City/[facility]/ZIP Co de Phone Number [facility] ([place]) [address] [facility] [address] [address] * (ABNORMAL) Vitamin D 25 hydroxy (11/23/2020 7:46 AM CDT) Vitamin D 25-OH 28(L) 30 - 80 ng/mL [facility] ([place]) Blood 11/23/2020 7:46 AM CDT 11/23/2020 8:21 AM CDT us Darius Fernandez MD LAB BLOOD ORDERABLES Final Resul t Performing Organization Address City/[facility] Co de Phone Number [facility] ([place]) 1 [place] [address] documented in this encounter Visit Diagnoses Diagnosis Adrenal insufficiency (HCC) Glucocorticoid deficiency Fatigue, unspecified type Vitamin D deficiency documented in this encounter Care Teams Blast Hole Driller Relationship Specialty [place] [address] [place] [address] PCP - General 07/04/19 [place] [address] [address] [place] [address] 11/16/18 Ernie Shaw MD [address] [place] [address] [address] [place] [address] Information Clerk Brokerage Obstetrics and Gynecology 06/10/20 documented as of this encounter
--- OUTSIDE RECORDS SUMMARY | 2024-02-24 20:04 | XMS_ITS | Encounter Summary ---
Author Organization [facility] Healthcare Address [address] [place] [address] Care Team Providers Care Software Performance Engineer Name Role Phone Huseyin Dangelo MD Unavailable [phone] Brian Mon MD Primary Care Provider + Ernie Shaw MD Unavailable [phone] Reason for Visit * Reason Onset Date Comments Outgoing Call 11/20/2020 follow up to [facility] visit Encounter Details Date Type Department Care Team (Late st Contact Info) Description 11/20/[address] [address] Karen Gibbs RN Outgoing Call (follow up to [facility] visit) Social History Tobacco Use Types Packs/Day Years [...] Telephone Encounter - Karen Gibbs RN - 11/20/2020 8:55 PM CDT Contacted pt regarding follow up to [facility] visit. She presented to [facility] with abdominal pain. She statedshe is better today but feels as if she has cold type symptoms. She is taking zyrtec for that. She has follow up on 11/23. documented in this encounter Plan of Treatment Not on file documented as of this encounter Visit Diagnoses Not on filedocumented in this encounter Care Teams Software Performance Engineer Relationship Specialty [place] [address] [facility] [place] [address] PCP - General 07/04/19 [place] [address] [address] [facility] [address] 11/16/18 Ernie Shaw MD [address] [place] [address] [address] [place] [address] Cook Frozen Dessert Obstetrics and Gynecology 06/10/20 documented as of this encounter
--- OUTSIDE RECORDS SUMMARY | 2024-02-24 20:04 | XMS_ITS | Encounter Summary ---
Author Organization [facility] [employer] [facility] Address [address] [place] [address] Phone Care Team Providers Care Medical Housekeeper Name Role Phone Huseyin Dangelo MD Unavailable [phone] Brian Mon MD Primary Care Provider + Ernie Shaw MD Unavailable [phone] Reason for Visit * Reason Onset Date Comments Iron infusion 11/26/2020 Encounter Details Date Type Department Care Team (Late st Contact Info) Description 11/26/2020 Telephone [facility] Maternal- Medicine [facility] 7th Floor [address] [place] [address] Fariba Chin RN Iron infusion Social History Tobacco Use Types Packs/Day Years [...] Telephone Encounter - Fariba Chin RN - 11/26/2020 1:36 PM CDT Carito called stating she is going to try to take her iron supplement as suggested. She would like to cancel her iron infusion and schedule an NST for Wednesday 11/29 instead. I have call the [facility] and Cancelled the Iron infusion. Shanell has scheduled her for an NST on Wednesday 11/29 at 10. She verbalized understanding. * Telephone Encounter - Fariba Chin RN - 11/26/2020 1:35 PM CDT ----- Message from Carito Madison sent at 11/26/2020 1:18 PM CDT ----- Regarding: Iron Infusion Hi tahir I think I???m going to try what the dr said first and try the iron with orange juice because I am really scared of infusions would that be ok? documented in this encounter Plan of Treatment Not on file documented as of this encounter Visit Diagnoses Not on filedocumented in this encounter Care Teams Medical Housekeeper Relationship Specialty [place] [address] [address] [place] [address] PCP - General 07/04/19 [place] [address] [address] [place] [address] 11/16/18 Ernie Shaw MD [address] [place] [address] [address] [address] Priming Machine Operator Obstetrics and Gynecology 06/10/20 documented as of this encounter
--- OUTSIDE RECORDS SUMMARY | 2024-02-24 20:04 | XMS_ITS | Encounter Summary ---
Author Organization [facility] Healthcare Address [address] [place] [address] Care Team Providers Care International Marketing Intern Name Role Phone Huseyin Dangelo MD Unavailable [phone] Brian Mon MD Primary Care Provider + Ernie Shaw MD Unavailable [phone] Reason for Visit * Reason Onset Date Comments Incoming Call 11/29/2020 cramping, pre term labor Encounter Details Date Type Department Care Team (Late st Contact Info) Description 11/29/2020 Nurse Triage [address] [phone] Karen Gibbs RN Social History Tobacco Use Types Packs/Day [...] Telephone Encounter - Karen Gibbs RN - 11/29/2020 5:57 AM CDT Reason for Disposition ??? MODERATE-SEVERE abdominal pain Answer Assessment - Initial Assessment Questions 1. ONSET: When did the symptoms begin? yesterday 2. CONTRACTIONS: Describe the contractions that you are having. (e.g., duration, frequency, regularity, severity) Crampy, constant 3. MANE: What date are you expecting to deliver? 4. PARITY: Have you had a baby before? If Yes, ask: How long did the labor last? No 5. MOVEMENT: Has the baby's movement decreased or changed significantly from normal? no 6. OTHER SYMPTOMS: Do you have any other symptoms? (e.g., leaking fluid from vagina, fever, hand/facial swelling) no Protocols used: - LABOR - [id number] documented in this encounter Plan of Treatment Not on file documented as of this encounter Visit Diagnoses Not on filedocumented in this encounter Care Teams International Marketing Intern Relationship Specialty [place] [address] [address] [place] [address] PCP - General 07/04/19 [place] [address] [address] [place] [address] 11/16/18 Ernie Shaw MD [address] [place] [address] [address] [place] [address] Telephoto Engineer Obstetrics and Gynecology 06/10/20 documented as of this encounter
--- OUTSIDE RECORDS SUMMARY | 2024-02-24 20:04 | XMS_ITS | Encounter Summary ---
Author Organization [facility] Healthcare Address [address] [place] [address] Care Team Providers Care Roving Or Yarn Color Checker Name Role Phone Huseyin Dangelo MD Unavailable [phone] Brian Mon MD Primary Care Provider + Ernie Shaw MD Unavailable [phone] Encounter Details Date Type Department Care Team (Late st Contact Info) Description 11/23/2020 7:40 AM CDT [address] [address] Kathia Rodríguez, ASSISTANT SHIFT SUPERVISOR [address] [facility] [phone] [place] [address] Supervision of high-risk , unspecified trimester Discharge [...] Procedure Name Priority Date/Time Associated Diagnosis Comments FERRITIN Routine 11/23/2020 7:46 AM CDT Supervision of high-risk , unspecified trimester documented in this encounter Results * (ABNORMAL) Ferritin (11/23/2020 7:46 AM CDT) Ferritin 10(L) 15 - 150 ng/mL [facility] ([place]) Blood 11/23/2020 7:46 AM CDT 11/23/2020 8:21 AM CDT Kathia Washburnbull ASSISTANT SHIFT SUPERVISOR LAB BLOOD ORDERABLE S Final Result [facility] ([place]) 1 [facility] Department [place] [address] documented in this encounter Visit Diagnoses Diagnosis Supervision of high-risk , unspecified trimester documented in this encounter Care Teams Roving Or Yarn Color Checker Relationship Specialty Start [place] [address] [address] [place] [address] PCP - General 07/04/19 [place] [address] [address] [place] [address] 11/16/18 Ernie Shaw MD [address] [place] [address] [address] [place] [address] Handle Finisher Obstetrics and Gynecology 06/10/20 documented as of this encounter
--- OUTSIDE RECORDS SUMMARY | 2024-02-24 20:04 | XMS_ITS | Encounter Summary ---
Author Organization [facility] Address [address] [place] [address] Care Team Providers Care Shuttle Driver Name Role Phone Huseyin Dangelo MD Unavailable [phone] Brian Mon MD Primary Care Provider + Ernie Shaw MD Unavailable [phone] Reason for Visit * Reason Comments Abdominal Pain abd pain in upper mi d abd Encounter Details Date Type Department Care Team (Latest Contact Info) Description 11/19/2020 8:29 PM CDT - 11/19/2020 9:45 PM CDT Hospital Encounter [address] [address] Alma Alves MD [address] [id number] Discharge Disposition: Discharge to home or self [...] Reading Time Taken Comments Blood Pressure 120/72 11/19/2020 8:34 PM CDT Pulse 99 11/19/2020 8:55 PM CDT Temperature 37 ??C (98.6 ??F) 11/19/2020 8:58 PM CDT Respiratory Rate 18 11/19/2020 8:58 PM CDT Oxygen Saturation 98% 11/19/2020 8:55 PM CDT Inhaled Oxygen Concentration - - Weight - - Height - - Body Mass Index - - documented in this encounter Discharge Diagnoses Diagnosis Other specified related conditions, third trimester - OTHER SPECIFIED RELATED CONDITIONS, THIRD TRIMESTER Periumbilical pain - PERIUMBILICAL PAIN Abdominal pain, periumbilic 30 weeks gestation of - 30 WEEKS GESTATION OF Diseases of the respiratory system complicating , third trimester - DISEASES OF THE RESPIRATORY SYSTEM COMPLICATING , THIRD TRIMESTER Unspecified asthma, uncomplicated - UNSPECIFIED ASTHMA, UNCOMPLICATED related renal disease, third trimester - RELATED RENAL DISEASE, THIRD TRIMESTER 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) - GLOMERULAR DISEASE IN SYSTEMIC LUPUS ERYTHEMATOSUS Other mental disorders complicating , third trimester - OTHER MENTAL DISORDERS COMPLICATING , THIRD TRIMESTER Diseases of the nervous system complicating , third trimester - DISEASES OF THE NERVOUS SYSTEM COMPLICATING , THIRD TRIMESTER Diseases of the digestive system complicating , third trimester - DISEASES OF THE DIGESTIVE SYSTEM COMPLICATING , THIRD TRIMESTER Gastro-esophageal reflux disease without esophagitis - GASTRO-ESOPHAGEAL REFLUX DISEASE WITHOUT ESOPHAGITIS Rheumatoid arthritis, unspecified (HCC) - RHEUMATOID ARTHRITIS, UNSPECIFIED extermination inspector (current) use of systemic steroids - SNF (CURRENT) USE OF SYSTEMIC STEROIDS extermination inspector (current) use of aspirin - SNF (CURRENT) USE OF ASPIRIN Other extermination inspector (current) drug therapy - OTHER ROLLER TURNER (CURRENT) DRUG THERAPY Personal history of nicotine dependence - PERSONAL HISTORY OF NICOTINE DEPENDENCE Allergy status to penicillin - ALLERGY STATUS TO PENICILLIN Allergy status to other drugs, medicaments and biological substances - ALLERGY STATUS TO OTHER DRUGS, MEDICAMENTS AND BIOLOGICAL SUBSTANCES Allergy status to other antibiotic agents - ALLERGY STATUS TO OTHER ANTIBIOTIC AGENTS Unspecified convulsions (HCC) - UNSPECIFIED CONVULSIONS Chronic kidney disease, unspecified - CHRONIC KIDNEY DISEASE, UNSPECIFIED documented in this encounter Discharge Instructions * Discharge Instr - Diet* Shaye May RN - 11/19/2020 9:40 PM CDT Drink at least 8-10 glasses of water daily * Attachments The following attachments cannot be sent through Care Everywhere. * at 27 to 30 Weeks (Discharge Care) (Thai) documented in this encounter Medications at Time [...] MOUTH DAILY 60 tablet 10/23/2020 1 vit no.[id number] (Classic ) 28 mg iron- 800 mcg [...] documented in this encounter H&P Notes * Elina Covarrubias, KINGA - 11/19/2020 9:36 PM CDT Obstetrics H&P Chief Complaint: abdominal pain Estimated Date of Delivery: 01/27/21 Provider: RENETTA HPI: Carito Madison is a 30 y.o. female at 30w1d gestation, dated by L=1st presents withcomplaints of abdominal pain. The pain is periumbilical situated at the uterine fundus. She states the pain is a tightening feeling that comes and goes. When she was driving here the pain was at it worst. She has normal bowel movements and taken her GERD medications. Denies nausea and vomiting. Denies Contractions. + FM Her is complicated by??complete placenta previa, ??marginal cord insertion, SLE, secondary adrenal insufficiency, epilepsy, ADHD, MARIMAR Patient Denies: [x] Contractions [x] Shortness of [...] PTL Lv 3 Current 2 SAB 2019 1 SAB 2017 MANAGER SCIENCE History: No LMP recorded (lmp unknown). Patient is . History of Abnormal Pap: None STD History: none Past Medical History: Diagnosis Date ??? Anemia ??? Anxiety ??? Asthma ??? Chronic diarrhea ??? Chronic kidney disease ??? Depression ??? Headache, tension-type ??? Lupus (CMS/HCC) (HCC) ??? PONV (postoperative nausea and vomiting) ??? 07/13/2015 ??? Rheumatoid arthritis (HCC) ??? Seizures (CMS/HCC) (HCC) Chronic hypertension: No Diabetes: No Asthma: No [...] powder predniSONE (DELTASONE) 5 mg tablet vit no.[id number]-[id number] (Classic ) 28 mg iron- 800 mcg tablet sertraline (ZOLOFT) 25 mg tablet valACYclovir (VALTREX) 500 mg tablet Review of Sys: Negative except per HPI Vitals: Temp: [37 ??C (98.6 ??F)] 37 ??C (98.6 ??F) Pulse: [111] 111 Resp: [18] 18 BP: (120)/(72) 120/72 Physical Exam: General: NAD, mood appropriate Cardiovascular: Regular rate and rhythm Pulmonary: Clear to ausculation bilaterally Abdomen: Gravid, non-tender Extremities: Warm and well perfused Speculum Exam: deferred Cervix: / / deferred Monitoring: Baseline: 135 bpm, Variability: Moderate, Accelerations: Present and Decelerations: None Uterine Activity: No contractions seen on toco Interpretation: Reactive Ultrasound: Vertex presentation Labs: Lab Results Component Value Date ABORH A Positive 10/18/2020 IDCOOMB Negative 10/18/2020 Assessment and Plan Carito Madison is a 30 y.o. female at 30w1d who presented with abdominal pain Abdominal pain: toco with no evidence of ctx. No SVE: patient with previa. Uterine tone soft. No ctx palpated. No bleeding or LOF. Patient well and comfortable appearing. VSS. Reactive NST. Dicussed likely ethan nolen Plan discussed with Dr. Birgit Covarrubias NP 11/19/20 [facility] Fellow Attestation I have discussed Carito Madison with the above provider on 11/20/2020. I have reviewed the treatment plan and recommendations. I agree with the findings and the plan of care as documented in the note with the following addendum: Briefly, this is a 30 y.o. at 30w2d with complicated by placenta previa who presented with abdominal pain. No evidence of labor, no contractions. Patient discharged home comfortable Alma Genao MD Maternal- Medicine Fellow Cosigned by Margarita Correa MD at 11/20/2020 9:17 AM CDT Associated attestation - Margarita Correa MD - 11/20/2020 9:17 AM CDT I have reviewed the above note for Carito Madison, and I agree with the documented plan by the resident/fellow/MEKHI. Margarita Correa MD 11/20/2020 documented in this encounter Procedure Notes * Elina Covarrubias NP - 11/19/2020 9:45 PM CDT Procedures Monitoring: Baseline: 135 bpm, Variability: Moderate, Accelerations: Present and Decelerations: None Uterine Activity: No contractions seen on toco Interpretation: Reactive Comments: Overall reassuring tracing I have reviewed NST and instructed RN to take off monitor Elina Covarrubias NP Cosigned by Aissatou Espinoza MD at 11/20/2020 8:43 AM CDT * Aissatou Espinoza MD - 11/19/2020 9:45 PM CDT Procedures FHR Baseline: 130 Variability: moderate Accelerations: present Decelerations: absent Contractions: absent Reactive: Yes I have reviewed the NST. Aissatou Espinoza MD documented in this encounter Nursing Notes * Shaye May RN - 11/19/2020 9:45 PM CDT Pt came in with c/o upper mid and pain that she was not really concerned about and didn't think wasctx but wanted to get checked out. Pt seen and evaluated by Jomar Covarrubias NP. Pt dc'd home with PTL precautions. documented in this encounter Plan of Treatment Not on file documented as of this encounter Visit Diagnoses Diagnosis Generalized anxiety disorder documented in this encounter Admitting Diagnoses Diagnosis Generalized anxiety disorder Marginal insertion of umbilical cord affecting management of mother in second trimester Placenta previa specified as without hemorrhage in second trimester Polyhydramnios in third trimester, not applicable or unspecified fetus Supervision of high-risk , unspecified trimester documented in this encounter Care Teams Shuttle Driver Relationship Specialty [place] [address] [address] [place] [address] PCP - General 07/04/19 [place] [address] [address] [place] [address] 11/16/18 Ernie Shaw MD [address] [place] [address] [address] [place] [address] Platform Consultant Obstetrics and Gynecology 06/10/20 documented as of this encounter
--- OUTSIDE RECORDS SUMMARY | 2024-02-24 20:04 | XMS_ITS | Encounter Summary ---
Author Organization [facility] [employer] of [facility] Address [address] [place] [address] Phone Care Team Providers Care Processing Rep Name Role Phone Huseyin Dangelo MD Unavailable [phone] Brian Mon MD Primary Care Provider + Ernie Shaw MD Unavailable [phone] Encounter Details Date Type Department Care Team (Late st Contact Info) Description 11/15/2020 Telephone [facility] Maternal- Medicine [address] [facility] Outpatient Health 7th Floor [address] [place] [address] Anh Marin, PRO Social History [...] Telephone Encounter - Anh Marin RN - 11/15/2020 4:13 PM CDT Pt. Calling. States she does not want to continue with plan made this AM for admission for bleedingon Sunday. Instead she is requesting to forego admission and present to [facility] for iron infusion. Per Babs Rodríguez recommendation is still for admission for full evaluation and GI consult for bleedingof unknown source in setting of known placenta previa, however if pt. Declines we can set up for IVinfusion as long as she fully understands recommendations. CB to pt. No answer. VML. documented in this encounter Plan of Treatment Not on file documented as of this encounter Visit Diagnoses Not on filedocumented in this encounter Care Teams Processing Rep Relationship Specialty [place] [address] [place] [address] PCP - General 07/04/19 [place] [address] [address] [facility] [place] [address] 11/16/18 Ernie Shaw MD [address] [place] [address] [address] [place] [address] [employer] Sports Obstetrics and Gynecology 06/10/20 documented as of this encounter
--- OUTSIDE RECORDS SUMMARY | 2024-02-24 20:04 | XMS_ITS | Encounter Summary ---
Author Organization [facility] [employer] of [facility] Address [address] [place] [address] Phone Care Team Providers Care Crossing Tender Name Role Phone Huseyin Dangelo MD Unavailable [phone] Brian Mon MD Primary Care Provider + Ernie Shaw MD Unavailable [phone] Encounter Details Date Type Department Care Team (Late st Contact Info) Description 11/16/2020 Orders Only [facility] Maternal- Medicine [address] [facility] Health 7th Floor [address] [place] [address] Fariba Chin RN Social History [...] as of this encounter Progress Notes * Fariba Chin RN - 11/16/2020 4:42 PM CDT error documented in this encounter Plan of Treatment Not on file documented as of this encounter Visit Diagnoses Not on filedocumented in this encounter Care Teams Crossing Tender Relationship Specialty [place] [address] [address] [facility] [address] [place] [address] PCP - General 07/04/19 [place] [address] [address] [place] [address] 11/16/18 Ernie Shaw MD [address] [facility] [address] [place] [address] Almond Blancher Obstetrics and Gynecology 06/10/20 documented as of this encounter
--- OUTSIDE RECORDS SUMMARY | 2024-02-24 20:04 | XMS_ITS | Encounter Summary ---
Author Organization [facility] [employer] of [facility] Address [address] [place] [address] Phone Care Team Providers Care Automatic Packer Operator Name Role Phone Huseyin Dangelo MD Unavailable [phone] Brian Mon MD Primary Care Provider + Ernie Shaw MD Unavailable [phone] Reason for Visit * Reason Comments Routine Visit Encounter Details Date Type Department Care Team (Late st Contact Info) Description 11/15/2020 10:15 AM CDT Office Visit [facility] Maternal- Medicine [address] [facility] Health 7th Floor [address] [place] [address] Kathia Rodríguez, KINGA [address] [facility] [phone] [place] [address] Generalized anxiety disorder (Primary Dx); Lupus (CMS/HCC) (HCC); Marginal insertion of umbilical cord affecting management of mother in second trimester; Placenta previa specified as without hemorrhage in second trimester; Polyhydramnios in third trimester, not applicable or unspecified fetus; Secondary adrenal insufficiency (CMS/HCC) (HCC); Supervision of high-risk , unspecified trimester; Adrenal insufficiency (CMS/HCC) (HCC); Rectal bleeding Social History Tobacco Use Types Packs/Day Years [...] Sign Reading Time Taken Comments Blood Pressure 122/64 11/15/2020 10:08 AM CDT Pulse - - Temperature - - Respiratory Rate - - Oxygen Saturation - - Inhaled Oxygen Concentration - - Weight 84.4 kg (186 lb) 11/15/2020 10:08 AM CDT Height 157.5 cm (5' 2 ) 11/15/2020 10:08 AM CDT Body Mass Index 34.02 11/15/2020 10:08 AM CDT documented in this encounter Progress Notes * Kathia Rodríguez, KINGA - 11/15/2020 10:15 AM CDT MFM Return Visit 11/16/2020 Carito Spence is a 30 y.o. at 29w4d who is here for a return OB visit. Her iscomplicated by lupus, adrenal insufficeny, 2nd trimester loss and anxiety. Subjective: Today she reports feeling like she gets different information from different people this and that has been challenging for her. She is requesting to be a full MFM MD patient dueto the high risk nature of her . She states that she has been seeing Dr. Delgado at [facility] and was told that her placenta had moved on Sunday and is frustrated that today we said it was stillcovering the os. She does not want to continue to pay co-pays here with our team and is interested in becoming a full global MFM patient. She denies recent contractions or vaginal bleeding and statesshe continues to leak fluid. She has been r/o several times for rupture and her amniotic fluid is normal again on US today. She reports having BM 1-2 times a day with significant bleeding noted in the toilet with most all BM. She feels very strongly that the bleeding is rectal and not vaginal. She believes this is 2/2 internal hemorrhoids. She reports pain with BM and straining 2/2 the PO iron she is taking. She declines admission to [facility] today for evluation or a referral to GI and requests an iron infusion. She has itching in her stretch dior that she scratches at night until she bleeds. Shedenies itching of her palms or soles of her feet. She reports positive movement. Objective: BP 122/64 Ht 157.5 cm (5' 2 ) Wt 186 lb (84.4 kg) LMP (LMP Unknown) Comment: LMP end of Mar 2020 BMI 34.02 kg/m?? General: NAD Abdomen: Soft, gravid, NT, FHR + Extremities: WWP, no edema Ultrasound: 11/16/2020 AGA, previa still present- see finalized US report Assessment/Plan: Carito Spence is a 30 y.o. at 29w4d with a complicated by the following: Problem List MANE 01/30/21 Lupus (CMS/HCC) ([facility]) Overview S/p counseling at initial visit Plan: -Currently takinghydroxychloroquine to 200 mg alternating with 400 mg every other day, prednisone 5mg daily (pt has questions about d/c'ing prednisone 11/16/2020) -Discussion with rheum in starting azothiaprine - discontinued benlysta after counseling d/t concerns -Serial growths- AGA - testing at 32 weeks- discussed -81 mg ASA at 12 weeks -BMP q trimester for renal surveillance. -Baseline preElabs, P:C 91 Current Assessment & Plan Denies issues. Questions today regarding stopping prednisone. Will f/u with MFM and rheum. Adrenal insufficiency (CMS/HCC) ([facility]) Overview Secondary to chronic steroid treatment. She is currently on prednisone for her lupus 5 mg daily. Secondary adrenal insufficiency (CMS/HCC) ([facility]) Overview Carito has a history of possible secondary adrenal insufficiency 2/2 chronic steroid use for her lupus. She is currently on prednisone 5 mg for her lupus. She was advised to transition to hydrocortisone or higher dose prednisone by endocrinology during her and stress-dose steroids were discussed. S/p counseling at initial visit [] will discuss with RENETTA HUBBARD and rheum regarding need for continued prednisone Generalized anxiety disorder - Primary Overview Ms spence reports severe anxiety and near panic in this thus far. This is not a new issuefor her, but it has significantly worsened in . S/p counseling at initial visit Plan: -[facility] referral, following -Zoloft 25 mg/day -psych referral Relevant Orders Case Request Operating Room: SECTION Marginal insertion of umbilical cord affecting management of mother in second trimester Overview Marginal cord insertion can be associated with growth restriction. Serial growths- currently AGA Relevant Orders Case Request Operating Room: SECTION Placenta previa specified as without hemorrhage in second trimester Overview Anterior placenta previa. Reviewed bleeding precautions, avoidance of sex and digital exams. Re-evaluate placental location ~ 28 or sooner if clinically indicated 10/22/2020 left hospital AMA after 3rd bleed, [...] GI consult. Dr. Shukla to room to educational guidance counselor patient regarding risks of daily bleeding in thesetting of a previa and a dropping H&H. Pt declines admission following extensive counseling. Relevant Orders Case Request Operating Room: SECTION Polyhydramnios in third trimester, not applicable or unspecified fetus Overview Mild polyhydramnios previously noted and counseled diabetic screen normal 10/15: fluid normal Relevant Orders Case Request Operating Room: SECTION Rectal bleeding Overview Pt reports bleeding with most all BM [...] counseling regarding risks of bleeding pt declines and wishes to proceed with iron infusion. Will continue close monitoring at this time. Supervision of high-risk , unspecified trimester Overview [x] Full MFM Care; [x] Red Team- pt preference [x] Referring Provider: Dr. Sheldon Delgado [x] Dating Criteria: US 06/04/20 with MANE 01/30/21 [x] Labs: Rh [ A+], Ab [Neg ], Rubella [Imm ], HIV [Neg ], HepBSAg [Neg ], RPR [NR ], GC/CT [negative/negative] [x] Genetic Screening: [place] low risk 07/09 [x] CBC/Hgb 11.7/35.0/306 [x] [...] if normal result [] Flu Shot (Oct-Jan): [] Tdap (27-36wks): [x] COVID Vaccine: s/p both doses 3rd Tri Labs: [] CBC/HIV/RPR: [] GBS: [x] COVID testing: set up for 01/03 at [facility] [] hibiclens Counselling [x] MOD: Current plan is for C/S at 37 weeks in the setting of a previa: 01/06/21 @ 1130, letter inchart [x] Place of delivery: [facility] [] MOC: [] Method of feeding: [] Green Ware Caster: [] PP Depression Discussed: Relevant Orders Case Request Operating Room: SECTION Specialty Infusion Treatment Lupus (CMS/HCC) (HCC) Overview S/p counseling at initial visit Plan: -Currently takinghydroxychloroquine to 200 mg alternating with 400 mg every other day, prednisone 5mg daily (pt has questions about d/c'ing prednisone 11/16/2020) -Discussion with rheum in starting azothiaprine - discontinued benlysta after counseling d/t concerns -Serial growths- AGA - testing at 32 weeks- discussed -81 mg ASA at 12 weeks -BMP q trimester for renal surveillance. -Baseline preElabs, P:C 91 Current Assessment & Plan Denies issues. Questions today regarding stopping prednisone. Will f/u with MFM and rheum. Specialty Infusion Treatment 2 Adrenal insufficiency (CMS/HCC) (HCC) Overview Secondary to chronic steroid treatment. She is currently on prednisone for her lupus 5 mg daily. #puritic stretch dior - Would likely benefit from Triamcinolone, will discuss with MFM team/pharmacy 2/2 pts allergies listed in epic Will schedule MFM MD visit in 1 week to continue counseling. Strict bleeding/PTL/PEC/FKC precautions reviewed. Reviewed the importance of presenting to her closest hospital in the case of an emergency for evaluation and if necessary and safe will be transferred to [facility]. KATHRIN Carballo Cosigned by Latha Serrano MD at 11/17/2020 1:04 PM CDT documented in this encounter Miscellaneous Notes * Assessment & Plan Note - Kathia Rodríguez NP - 11/16/2020 4:24 PM CDTAssociated Problem(s): Lupus (CMS/HCC) (HCC) Denies issues. Questions today regarding stopping prednisone. Will f/u with MFM and rheum. documented in this encounter Plan of Treatment Not on file documented as of this encounter Visit Diagnoses Diagnosis Generalized anxiety disorder- Primary Lupus Systemic lupus erythematosus Marginal insertion of umbilical cord affecting management of mother in second trimester Placenta previa specified as without hemorrhage in second trimester Polyhydramnios in third trimester, not applicable or unspecified fetus Secondary adrenal insufficiency (HCC) Supervision of high-risk , unspecified trimester Adrenal insufficiency (HCC) Glucocorticoid deficiency Rectal bleeding Hemorrhage of rectum and anus documented in this encounter Orders Case Request Count Last Ordered Date First Orde red Date CASE REQUEST OPERATING ROOM 1 11/15/2020 documented in this encounter Care Teams Automatic Packer Operator Relationship Specialty [place] [address] [address] [place] [address] PCP - General 07/04/19 [place] [address] [address] [place] [address] 11/16/18 Ernie Shaw MD [address] [place] [address] [address] [place] [address] Spring Bender Obstetrics and Gynecology 06/10/20 documented as of this encounter
--- OUTSIDE RECORDS SUMMARY | 2024-02-24 20:04 | XMS_ITS | Encounter Summary ---
Author Organization [facility] [employer] of [facility] Address [address] [place] [address] Phone Care Team Providers Care Cassandra Architect Name Role Phone Huseyin Dangelo MD Unavailable [phone] Brian Mon MD Primary Care Provider + Ernie Shaw MD Unavailable Encounter Details Date Type Department Care Team (Late st Contact Info) Description 11/24/2020 Orders Only [facility] Maternal- Medicine [address] [facility] Health 7th Floor [address] [place] [address] Anh Marin, PRO Social History [...] as of this encounter Progress Notes * Anh Marin RN - 11/24/2020 10:27 AM CDT Co documented in this encounter Plan of Treatment Not on file documented as of this encounter Visit Diagnoses Not on filedocumented in this encounter Care Teams Cassandra Architect Relationship Specialty [place] [address] [address] [facility] [address] [place] [address] PCP - General 07/04/19 [place] [address] [address] [facility] [address] [place] [address] 11/16/18 Ernie Shaw MD [address] [facility] [address] [place] [address] Chainstitch Seat Joiner Obstetrics and Gynecology 06/10/20 documented as of this encounter
--- OUTSIDE RECORDS SUMMARY | 2024-02-24 20:04 | XMS_ITS | Encounter Summary ---
Author Organization [facility] Healthcare Address [address] [place] [address] Care Team Providers Care Production Control Expert Name Role Phone Huseyin Dangelo MD Unavailable [phone] Brian Mon MD Primary Care Provider + Ernie Shaw MD Unavailable [phone] Reason for Visit * Reason Onset Date Comments Outgoing Call 11/18/2020 Pre-Proce dure Phone Call Encounter Details Date Type Department Care Team (Late st Contact Info) Description 11/18/[address] [address] Mariza Mccoy RN Outgoing Call (Pre-Procedure Phone Call) Social History Tobacco Use Types Packs/Day Years [...] as of this encounter Progress Notes * Mariza Mccoy RN - 11/18/2020 8:09 PM CDT Contacted patient by telephone for pre-procedure call instructions. Patient verified. COVID screening done by phone-negative. Discussed: Wearing a face mask or covering to the hospital: screeningand temperature taking for herself and her visitor upon arrival. Reviewed updated policy of two visitors being allowed to visit per day. Visitors should stay in the patient's room unless visiting the cafeteria, chapel or restroom. If visitors stay overnight they must return to the lobby to be screened again. If the visitor leaves the hospital they are not allowed to return until the next day. Visitors will be signing in and out at the secretary of police's desk daily, no swapping of visitors. Requested to bring all suitcases , bags, and car seat in at time of arrival. Allergies verified. Verified time and date of procedure and arrival to hospital. Discussed directions to [facility] tower, parking, and [facility], L&D. Discussed: Diet the day before, during and after procedure, glasses and contacts, remove all jewelry; and requested to leave all valuables at home. Discussed Advance Directive, plan; unit; hours of operation of cafeteria and coffee/gift shop; and parking validation. Questions answered. Patient verbalized understanding of instructions and voiced no further questions at this time. documented in this encounter Plan of Treatment Not on file documented as of this encounter Visit Diagnoses Not on filedocumented in this encounter Care Teams Production Control Expert Relationship Specialty [place] [address] [address] [facility] [place] [address] PCP - General 07/04/19 [place] [address] [address] [place] [address] 11/16/18 Ernie Shaw MD [address] [facility] [address] [place] [address] Outsole Skiver Obstetrics and Gynecology 06/10/20 documented as of this encounter
--- OUTSIDE RECORDS SUMMARY | 2024-02-24 20:04 | XMS_ITS | Encounter Summary ---
Author Organization [facility] Healthcare Address [address] [place] [address] Care Team Providers Care Small Engine Trainer Name Role Phone Huseyin Dangelo MD Unavailable [phone] Brian Mon MD Primary Care Provider + Ernie Shaw MD Unavailable [phone] Reason for Visit * Reason Comments Problem Pt here for schedule d iron infusion Encounter Details Date Type Department Care Team (Latest Contact Info) Description 12/01/2020 7:55 AM CDT - 12/01/2020 11:41 AM CDT Hospital Encounter [address] [phone] Dilan Riley MD [address] [facility] [phone] [place] [address] Discharge Disposition: Discharge to home or self [...] Sign Reading Time Taken Comments Blood Pressure 127/63 12/01/2020 11:25 AM CDT Pulse 89 12/01/2020 11:25 AM CDT Temperature 36.7 ??C (98 ??F) 12/01/2020 10:55 AM CDT Respiratory Rate 18 12/01/2020 11:25 AM CDT Oxygen Saturation 97% 12/01/2020 11:25 AM CDT Inhaled Oxygen Concentration - - Weight 84.6 kg (186 lb 6.4 oz) 12/01/2020 8:00 A M CDT Height 157.5 cm (5' 2 ) 12/01/2020 8:00 AM CDT Body Mass Index 34.09 12/01/2020 8:00 AM CDT documented in this encounter Discharge Diagnoses Diagnosis Anemia complicating , third trimester - ANEMIA COMPLICATING , THIRD TRIMESTER Iron deficiency anemia, unspecified - IRON DEFICIENCY ANEMIA, UNSPECIFIED 31 weeks gestation of - 31 WEEKS GESTATION OF documented in this encounter Discharge Instructions * Attachments The following attachments cannot be sent through Care Everywhere. * at 31 to 34 Weeks (AfterCare(R) Instructions(ER/ED)) (Slovenian) documented in this encounter Medications at Time [...] MOUTH DAILY 60 tablet 10/23/2020 1 vit no.[id number] (Classic ) 28 mg iron- 800 mcg tablet Take 1 tablet by mouth daily 1 sertraline (ZOLOFT) 25 mg tablet 10/18/2020 2 valACYclovir (VALTREX) 500 mg tablet TAKE 1 TAB BY MOUTH 3 TIMES DAILY FOR 7 DAYS. 12/03/2019 1 documented as of this encounter Discharge Disposition Disposition Code Departure Means Destination Discharge to home or self care documented in this encounter Procedure Notes * Wendi Ivey NP - 12/01/2020 8:14 AM CDT Procedures Iron Infusion SOAP Carito Madison is a 30 y.o. female female at 31w6d gestation S: Presents for scheduled iron infusion as directed by her provider. Has iron- deficient anemia and has failed po iron supplementation. O: Vital signs: BP 129/79 Pulse 106 Temp 36.9 ??C (98.5 ??F) (Oral) Ht 157.5 cm (5' 2 ) Wt 84.6 kg (186 lb 6.4 oz) LMP (LMP Unknown) Comment: LMP end of Mar 2020 SpO2 100% BMI 34.09 kg/m?? Monitoring: Baseline: 135bpm, Variability: Moderate, Accelerations: Present and Decelerations: None Uterine Activity: No contractions seen on toco Interpretation: Reactive Diagnostic Review Lab Results Component Value Date WBC 10.3 (H) 11/29/2020 HGB 9.9 (L) 11/29/2020 HCT 31.3 (L) 11/29/2020 MCV 85.8 11/29/2020 LABPLAT 246 11/29/2020 A/P: Carito Madison is a 30 y.o. female female at 31w6d gestation MAEVE Premed received benadryl 25mg (at home) and 1000mg tylenol per pt request Received Iron dextran 1000 mg Tolerated well. No reaction noted. FWB- Reactive/reassuring monitoring. Disposition discussed with Dr. Urias- Discharge to home with follow up as scheduled. Wendi Ivey NP Cosigned by Avelino Triplett MD at 12/01/2020 1:27 PM CDT Associated attestation - Avelino Triplett MD - 12/01/2020 1:27 PM CDT I have reviewed and agree with the documentation by the resident/VETERINARIAN SMALL ANIMAL. I did not see the patient. Avelino Triplett MD documented in this encounter Nursing Notes * Blair Martins RN - 12/01/2020 11:34 AM CDT Iron infusion given without reaction. Discharged in stable condition. documented in this encounter Plan of Treatment Not on file documented as of this encounter Procedures Procedure Name Priority Date/Time Associated Diagnosis Comments POCT URINALYSIS DIPSTICK Routine 12/01/2020 9:36 AM CDT documented in this encounter Results * (ABNORMAL) POCT urinalysis dipstick (12/01/2020 9:36 AM CDT) Color, Urine, POC Migd[place] Clarity, ur, POC Cloudy(A) Clear Glucose, ur, POC Negative Negative mg/dL Bilirubin, ur, POC Negative Negative, Small, Moderate, Large Ketones, ur, POC Negative Negative Specific [place], POC 1.030 1.005 - 1.030 Blood, ur, POC Negative Negative pH, ur, POC 6.0 5.0 - 8.0 Protein, ur, POC Trace(A) Negative Urobilinogen, urine, POC 0.2 0.2 - 1.0 mg/dL Nitrite, ur, POC Negative Negative Leukocytes, ur, POC Negative Negative Lot Number [id number] Urine 12/01/2020 9:36 AM CDT [facility] Naima Ivey NP POINT OF CARE TEST ORDERA BLES Final [...] 1,000 mg 1,000 mg, oral, Once, On Sun12/01/20 at 0845, For 1 dose, L&D Pre-Delivery Given 12/01/2020 8:48 AM CDT 1,000 mg iron dextran complex (INFED) 25 mg in sodium chloride 0.9% 50 mL IVPB 25 mg, intravenous, at 202 mL/hr, Administer over 15 Minutes, Once, On Sun12/01/20 at 0845, For 1 dose, L&D Pre-Delivery, Proceed to remainder of dose if no reaction to test dose after 10 minutes., Indications: Iron Deficiency AnemiaIndications:Iron Deficiency Anemia New Bag 12/01/2020 8:59 AM CDT 25 mg 202 mL/hr iron dextran complex (INFED) 975 mg in sodium chloride 0.9% 250 mL IVPB 975 mg, intravenous, at 359.3 mL/hr, Administer over 45 Minutes, Once, On Sun12/01/20 at 0845, For 1 dose, L&D Pre-Delivery, Indications: Iron Deficiency AnemiaIndications:Iron Deficiency Anemia New Bag 12/01/2020 9:57 AM CDT 975 mg 359.3 mL/hr sodium chloride 0.9% flush 0.5-20 mL 0.5-20 mL, intra-catheter, Every 8 hours scheduled, First dose on Sun12/01/20 at 0845, L&D Pre-Delivery, Flush volume based on line type and size. Given 12/01/2020 8:45 AM CDT 10 mL sodium chloride 0.9% flush 0.5-20 mL 0.5-20 mL, intra-catheter, As needed, line care, Starting on Sun12/01/20 at 0812, L&D Pre-Delivery, Flush volume based on line type and size. Flush before and after each use. sodium chloride 0.9% infusion 50 mL/hr, intravenous, Continuous, Starting on Sun12/01/20 at 0845, L&D Pre-Delivery New Bag 12/01/2020 8:56 AM CDT 50 mL/hr 50 mL/hr documented in this encounter Active and Recently Administered Medications Times are shown in CDT. Scheduled Medication Order 11/29/2020 11/30/2020 12/01/2020 acetaminophen (TYLENOL) tablet 1,000 mg (COMPLETED) 1,000 mg, oral, Once, On Sun12/01/20 at 0845, For 1 dose, L&D Pre-Delivery 0848 (Given - Provid er: Blair Martins RN) iron dextran complex (INFED) 25 mg in sodium chloride 0.9% 50 mL IVPB (COMPLETED) 25 mg, intravenous, at 202 mL/hr, Administer over 15 Minutes, Once, On Sun12/01/20 at 0845, For 1 dose, L&D Pre-Delivery, Proceed to remainder of dose if no reaction to test dose after 10 minutes., Indications: Iron Deficiency Anemia 0859 (New Bag - Prov ider: Blair Martins RN)0916 (Stopped - Provider: Blair Martins RN) iron dextran complex (INFED) 975 mg in sodium chloride 0.9% 250 mL IVPB (COMPLETED) 975 mg, intravenous, at 359.3 mL/hr, Administer over 45 Minutes, Once, On Sun12/01/20 at 0845, For 1 dose, L&D Pre-Delivery, Indications: Iron Deficiency Anemia 0957 (New Bag - Prov ider: Blair Martins RN)1048 (Stopped - Provider: Blair Martins RN) sodium chloride 0.9% flush 0.5-20 mL 0.5-20 mL, intra-catheter, Every 8 hours scheduled, First dose on Sun12/01/20 at 0845, L&D Pre-Delivery, Flush volume based on line type and size. 0845 (Given - Provid er: Blair Martins RN) Continuous Medication Order 11/29/2020 11/30/2020 12/01/2020 sodium chloride 0.9% infusion 50 mL/hr, intravenous, Continuous, Starting on Sun12/01/20 at 0845, L&D Pre-Delivery 0856 (New Bag - Prov ider: Blair Martins RN)1129 (Stopped - Provider: Blair Martins RN) PRN Medication Order 11/29/2020 11/30/2020 12/01/2020 sodium chloride 0.9% flush 0.5-20 mL 0.5-20 mL, intra-catheter, As needed, line care, Starting on Sun12/01/20 at 0812, L&D Pre-Delivery, Flush volume based on line type and size. Flush before and after each use. documented in this encounter Orders Medications Ordered That Omer ht Not Have Been Administered Count Last Ordered Date First Ordered Date sodium chloride 0.9% flush 0.5-20 mL 1 07/2020 documented in this encounter Care Teams Small Engine Trainer Relationship Specialty [place] [address] [address] [place] [address] PCP - General 07/04/19 [place] [address] [address] [place] [address] 11/16/18 Ernie Shaw MD [address] [place] [address] [address] [place] [address] Lavatory Attendant Obstetrics and Gynecology 06/10/20 documented as of this encounter
--- OUTSIDE RECORDS SUMMARY | 2024-02-24 20:05 | XMS_ITS | Encounter Summary ---
Author Organization [facility] Address [address] [place] [address] Phone Care Team Providers Care Fugitive Investigator Name Role Phone Huseyin Dangelo MD Unavailable [phone] Brian Mon MD Primary Care Provider + Ernie Shaw MD Unavailable [phone] Reason for Visit * Reason Onset Date Comments Med Management 11/11/2020 Encounter Details Date Type Department Care Team (Late st Contact Info) Description 11/11/2020 Telephone [facility] Endocrinology Metabolism and Lipid [address] [facility] Office Building [address] [address] Tran Lauren RMA Med Management Social History Tobacco Use Types Packs/Day [...] Telephone Encounter - Tran Lauren RMA - 11/18/2020 12:27 PM CDT Called and spoke to the pt and notified her of the blood work and holding the prednisone. Pt statedthat she understood and wanted the labs done at [facility] * Telephone Encounter - Francois Fernandez MD - 11/18/2020 11:52 AM CDT Can you please order 8 AM cortisol, ACTH and DHEA-s. Ask her to hold prednisone the morning of the test. Let's see what that shows before doing the stimulation test. Thanks * Telephone Encounter - Tran Lauren RMA - 11/11/2020 10:00 AM CDT Pt called stating that she is taking Prednisone 5 mg daily now and was wondering if she can just come off the Prednisone as she feels it is giving her and upset stomach. Pt was also wanting if she can get a Nick Stem test while ? documented in this encounter Plan of Treatment Not on file documented as of this encounter Results * (ABNORMAL) DHEA-sulfate (11/23/2020 7:46 AM CDT) DHEA-S 7.2(L) 98.8 - 340.0 mcg/dL [facility] [facility] ([place]) Comment:Testing performed by : [facility], [address] [facility], [place]., [address] Blood 11/23/2020 7:46 AM CDT 11/23/2020 3:03 PM CDT Darius Fernandez MD LAB BLOOD ORDERABLES Final Resul t Performing Organization Address [facility] de Phone Number [facility] ([place]) 1 [facility] [employer] [place] [address] * ACTH (11/23/2020 7:46 AM CDT) Pathologist [facility] ACTH 25 pg/mL [facility] ([place]) Comment: REFERENCE VALUE 7.2-63 (a.m. collection) Test Performed by: [facility] [address] [place] [address] Mat Linker: Dima Travis M.D. Ph.D.; IA# [id number] Blood 11/23/2020 7:46 AM CDT 11/23/2020 8:01 AM CDT Darius Fernandez MD LAB BLOOD ORDERABLES Final Resul t Performing Organization Address [facility] de Phone Number [facility] ([place]) [address] [place] [phone] * Cortisol (11/23/2020 7:46 AM CDT) Pathologist [facility] Cortisol 5.8 4.8 - 19.5 mcg/dl [facility] ([place]) Comment: Interpretive Data Normal Range: ??4.8 - 19.5 mcg/dL; ??Evening: ??Half of morning value. ?? This analyte undergoes marked diurnal variation. ??Ranges indicated apply to morning specimens. ?? Current interpretive data was last revised 2018. Testing performed by: [facility], [address] [place] [address]., [address] Blood 11/23/2020 7:46 AM CDT 11/23/2020 9:26 AM CDT Narrative [facility] ([place]) - 11/23/2020 11:10 AM CDT 8 am Cortisol us Darius Fernandez MD LAB BLOOD ORDERABLES Final Resul t [facility] ([place]) 1 [facility] Department [place] [address] documented in this encounter Visit Diagnoses Diagnosis Adrenal insufficiency (HCC)- Primary Glucocorticoid deficiency Adrenal insufficiency (HCC) Glucocorticoid deficiency Fatigue, unspecified type Vitamin D deficiency documented in this encounter Additional Health Concerns Infection Onset Date Last Indicated Resolved Time COVID: Suspected 11/16/2020 11/16/2020 11/16/2020 10:05 PM CDT documented as of this encounter Care Teams Fugitive Investigator Relationship Specialty [place] [address] [address] [place] [address] PCP - General 07/04/19 [place] [address] [address] [place] [address] 11/16/18 Ernie Shaw MD [address] [place] [address] [address] [place] [address] Child Psychometrist Obstetrics and Gynecology 06/10/20 documented as of this encounter
--- OUTSIDE RECORDS SUMMARY | 2024-02-24 20:05 | XMS_ITS | Encounter Summary ---
Author Organization [facility] Healthcare Address [address] [place] [address] Care Team Providers Care Wastewater Analyst Name Role Phone Huseyin Dangelo MD Unavailable [phone] Brian Mon MD Primary Care Provider + Ernie Shaw MD Unavailable [phone] Reason for Visit * Reason Comments Hypertension light headed Encounter Details Date Type Department Care Team (Latest Contact Info) Description 11/10/2020 12:20 PM CDT - 11/10/2020 1:20 PM CDT Hospital Encounter [facility] [address] [place] [address] Aiden Mccoy MD [address] [place] [address] [address] [facility] [address] [place] [address] Discharge Disposition: Discharge to home or self [...] file documented as of this encounter Discharge Diagnoses Diagnosis Other specified related conditions, third trimester - OTHER SPECIFIED RELATED CONDITIONS, THIRD TRIMESTER Elevated blood-pressure reading, without diagnosis of hypertension - ELEVATED BLOOD-PRESSURE READING, WITHOUT DIAGNOSIS OF HYPERTENSION 30 weeks gestation of - 30 WEEKS GESTATION OF documented in this encounter Discharge Instructions * Attachments The following attachments cannot be sent through Care Everywhere. * at 27 to 30 Weeks (Discharge Care) (Greenlandic) documented in this encounter Medications at Time of Discharge aspirin 81 mg enteric coated tablet Take 81 mg by mouth daily 1 clobetasoL (TEMOVATE) 0.05 % ointment Apply topically 2 (two) times a day 30 g 1 09/29/2020 1 hydrOXYchloroQUINE (PLAQUENIL) 200 mg tablet Take [...] MOUTH DAILY 60 tablet 10/23/2020 1 vit no.763-ghyq-nfyra (Classic ) 28 mg iron- 800 mcg [...] in this encounter Nursing Notes * Saadia Beebe RN - 11/10/2020 1:20 PM CDT Patient came to OB with complaints of feeling like she was passing out at home and had called 911 and when EMS arrived her blood pressure was 154/88 but didn't want to go to the hospital via ambulance, pt was placed on monitor upon arrival and all BP's WDL and reactive EFM. After water and a cool rag the patient stated she was feeling much better. Report called to Dr. Mccoy and orders given for d ischarge home. Patient educated on discharge instructions and indicated understanding. Patient stable and ambulated off of unit. Saadia Beebe RN 11/10/2020 documented in this encounter Plan of Treatment Not on file documented as of this encounter Visit Diagnoses Not on filedocumented in this encounter Care Teams Wastewater Analyst Relationship Specialty [place] [address] [address] [place] [address] PCP - General 07/04/19 [place] [address] [address] [facility] [place] [address] 11/16/18 Ernie Shaw MD [address] [place] [address] [address] [facility] [place] [address] Windows Systems Architect Obstetrics and Gynecology 06/10/20 documented as of this encounter
--- OUTSIDE RECORDS SUMMARY | 2024-02-24 20:05 | XMS_ITS | Encounter Summary ---
Author Organization [facility] Lost My Name of [facility] Address [address] [place] [address] Phone Care Team Providers Care Occupational Health And Safety Officer Name Role Phone Huseyin Dangelo MD Unavailable [phone] Brian Mon MD Primary Care Provider + Ernie Shaw MD Unavailable [phone] Reason for Visit * Reason Onset Date Comments vaginal pressure 10/25/2020 Encounter Details Date Type Department Care Team (Late st Contact Info) Description 10/25/2020 Telephone [facility] Maternal- Medicine [address] [facility] 7th Floor [address] [place] [address] Fariba Chin RN vaginal pressure Social History Tobacco Use Types Packs/Day Years Used Date Smoking Tobacco: Former Cigarettes Q uit: 12/28/2018 Smokeless Tobacco: Never Alcohol Use Standard Drinks/Week Comments Yes 0 (1 standard drink = 0.6 oz pur e alcohol) occasionally AUDIT-C Answer Date Recorded Q1: How often do you have a drink containing alc ohol? Never 10/22/2020 Average Number of Drinks Not on file 021 Q3: How often do you have si x or more drinks on one occasion? Never 10/22/2020 PHQ-2 Answer Date Recorded PHQ-2 Total Score [...] Telephone Encounter - Fariba Chin RN - 10/25/2020 3:53 PM CDT Carito called stating she got home about an hour ago and starting having intense vaginal pressure. She states she has tried position changes and was getting ready to get in the bath. She states shelabia are firm to touch as well. The pressure has last about an hour without relief. I recommended she be seen in the [facility]. She states she doesn't want to go if it is nothing. I explained that without evaluating her we will not know what is going on. She stated she would go to the hospital near her home for evaluation. documented in this encounter Plan of Treatment Not on file documented as of this encounter Visit Diagnoses Not on filedocumented in this encounter Care Teams Occupational Health And Safety Officer Relationship Specialty [place] [address] [address] [place] [address] PCP - General 07/04/19 [place] [address] [address] [place] [address] 11/16/18 Ernie Shaw MD [address] [place] [address] [address] [place] [address] Trip Rider Obstetrics and Gynecology 06/10/20 documented as of this encounter
--- OUTSIDE RECORDS SUMMARY | 2024-02-24 20:05 | XMS_ITS | Encounter Summary ---
Author Organization [facility] Healthcare Address [address] [place] [address] Care Team Providers Care Health Policy Analyst Name Role Phone Huseyin Dangelo MD Unavailable [phone] Brian Mon MD Primary Care Provider + Ernie Shaw MD Unavailable [phone] Reason for Visit * Reason Onset Date Comments Incoming Call 11/08/2020 no FM x 1 day Encounter Details Date Type Department Care Team (Late st Contact Info) Description 11/08/[address] [phone] Amy Rodriges RN Incoming Call (no FM x 1 day) Social History Tobacco Use Types Packs/Day Years [...] Telephone Encounter - Amy Rodriges RN - 11/08/2020 9:41 AM CDT Patient calling [facility] stating she tried to call [facility] nurses but couldn't reach anyone. Patientstates she has felt no FM yesterday or today. States she listened with a doppler and hear a heart beat. During questioning, patient has felt no kicks or Fms. Wants to know if she should be concerned.To [facility] for evaluation. Patient agrees to this plan. documented in this encounter Plan of Treatment Not on file documented as of this encounter Visit Diagnoses Not on filedocumented in this encounter Care Teams Health Policy Analyst Relationship Specialty [place] [address] [address] [address] PCP - General 07/04/19 [place] [address] [address] [place] [address] 11/16/18 Ernie Shaw MD [address] [place] [address] [address] [place] [address] Validation Consultant Obstetrics and Gynecology 06/10/20 documented as of this encounter
--- OUTSIDE RECORDS SUMMARY | 2024-02-24 20:05 | XMS_ITS | Encounter Summary ---
Author Organization [facility] Healthcare Address [address] [place] [address] Care Team Providers Care Production Counter Name Role Phone Huseyin Dangelo MD Unavailable [phone] Brian Mon MD Primary Care Provider + Ernie Shaw MD Unavailable [phone] Reason for Visit * Reason Onset Date Comments Outgoing Call 10/23/2020 Follow up [facility] Encounter Details Date Type Department Care Team (Late st Contact Info) Description 10/23/[address] [address] Fallon Callahan RN Outgoing Call (Follow up [facility]) Social History Tobacco Use Types Packs/Day Years [...] Telephone Encounter - Fallon Callahan RN - 10/23/2020 2:21 PM CDT Contacted patient for post [facility] follow-up. Pt states she is doing well, denies sxs of labor and states baby is active. States she is still leaking clear fluid, a bit more than yesterday when she came in, but the test was neg. Yesterday. Instructed to wear a peripad, and if it gets saturated, come into [facility] for recheck. Denies any vaginal bleeding. Encouraged pt to rest frequently, stay hydrated, and to keep follow-up appointment. Pt states her care was excellent. Pt denies any continued symptoms since discharge and verified follow up appointments as scheduled. Pt was able to teach back symptoms for return to the hospital. documented in this encounter Plan of Treatment Not on file documented as of this encounter Visit Diagnoses Not on filedocumented in this encounter Care Teams Production Counter Relationship Specialty [place] [address] [address] [place] [address] PCP - General 07/04/19 [place] [address] [address] [place] [address] 11/16/18 Ernie Shaw MD [address] [facility] [address] A[address] [place] [address] Business Mail Entry Clerk Obstetrics and Gynecology 06/10/20 documented as of this encounter
--- OUTSIDE RECORDS SUMMARY | 2024-02-24 20:05 | XMS_ITS | Encounter Summary ---
Author Organization [facility] [facility] Address [address] [place] [address] Phone Care Team Providers Care Facility Designer Name Role Phone Huseyin Dangelo MD Unavailable Brian Mon MD Primary Care Provider + Ernie Shaw MD Unavailable [phone] Reason for Visit * Reason Onset Date Comments breast pump orders 10/21/2020 Encounter Details Date Type Department Care Team (Late st Contact Info) Description 10/21/2020 Telephone [facility] Maternal- Medicine [address] [facility] 7th Floor [address] [place] [address] Anh Marin, RN breast pump orders Social History Tobacco Use Types Packs/Day Years [...] Telephone Encounter - Anh Marin RN - 10/21/2020 11:58 AM CDT Pt. Calling. States she would like a breast pump order. Pt. Aware will need her insurance company to fax us the order to sign and return. Verbalized understanding. Also questioning upcoming appt. Aware will review and send message as to wether or not she needs the OV appt on 11/04. documented in this encounter Plan of Treatment Not on file documented as of this encounter Visit Diagnoses Not on filedocumented in this encounter Care Teams Facility Designer Relationship Specialty [place] [address] [address] [place] [address] PCP - General 07/04/19 [place] [address] [address] [place] [address] 11/16/18 Ernie Shaw MD [address] [place] [address] [address] A[address] [place] [address] Pension Fund Manager Obstetrics and Gynecology 06/10/20 documented as of this encounter
--- OUTSIDE RECORDS SUMMARY | 2024-02-24 20:05 | XMS_ITS | Encounter Summary ---
Author Organization [facility] [facility] Address [address] [place] [address] Phone Care Team Providers Care Electric Motor Control Assembler Name Role Phone Huseyin Dangelo MD Unavailable [phone] Brian Mon MD Primary Care Provider + Ernie Shaw MD Unavailable [phone] Reason for Visit * Reason Onset Date Comments Elevated Blood Pressure 11/10/2020 Encounter Details Date Type Department Care Team (Late st Contact Info) Description 11/10/2020 Telephone [facility] Maternal- Medicine [address] [facility] 7th Floor [address] [place] [address] Fariba Chin RN Elevated Blood Pressure Social History Tobacco Use Types Packs/Day Years [...] Telephone Encounter - Fariba Chin RN - 11/10/2020 12:03 PM CDT Carito called and stated she is at home and started to feel like she was going to faint and was seeing spots. She called an ambulance because her was not home. The ambulance arrived and took her blood pressure which was 154/88. She stated that she told them she didn't want to take and ambulance due to expense. She asked me if this was a high blood pressure. I let her know yes this is anelevation of her blood pressure. I asked if she was still seeing spots and she said yes. I let her know she should be evaluated in the [facility] and she stated that she will call her and go to [facility] because it is closer to her and she feels most comfortable with this plan. documented in this encounter Plan of Treatment Not on file documented as of this encounter Visit Diagnoses Not on filedocumented in this encounter Care Teams Electric Motor Control Assembler Relationship Specialty [place] [address] [address] [place] [address] PCP - General 07/04/19 [place] [address] [address] [place] [address] 11/16/18 Ernie Shaw MD [address] [place] [address] [address] [place] [address] Information Assistant Obstetrics and Gynecology 06/10/20 documented as of this encounter
--- OUTSIDE RECORDS SUMMARY | 2024-02-24 20:05 | XMS_ITS | Encounter Summary ---
Author Organization [facility] [employer] [facility] Address [address] [place] [address] Phone Care Team Providers Care Core Worker Name Role Phone Huseyin Dangelo MD Unavailable [phone] Brian Mon MD Primary Care Provider + Ernie Shaw MD Unavailable [phone] Encounter Details Date Type Department Care Team (Late st Contact Info) Description 11/09/2020 Telephone [facility] Maternal- Medicine [address] [facility] Outpatient Health 7th Floor [address] [place] [address] Anh Marin, PRO Social [...] Telephone Encounter - Anh Marin RN - 11/09/2020 10:15 AM CDT Pt. Calling. States she is heading to [facility]. Will notify inpatient team. documented in this encounter Plan of Treatment Not on file documented as of this encounter Visit Diagnoses Not on filedocumented in this encounter Care Teams Core Worker Relationship Specialty [place] [address] [address] PCP - General 07/04/19 [place] [address] [address] [address] 11/16/18 Ernie Shaw MD [address] [facility] [address] A[address] [place] [address] Drywall Taper Helper Obstetrics and Gynecology 06/10/20 documented as of this encounter
--- OUTSIDE RECORDS SUMMARY | 2024-02-24 20:05 | XMS_ITS | Encounter Summary ---
Author Organization [facility] Healthcare Address [address] [place] [address] Care Team Providers Care Motor Assembly Supervisor Name Role Phone Huseyin Dangelo MD Unavailable [phone] Brian Mon MD Primary Care Provider + Ernie Shaw MD Unavailable [phone] Reason for Referral * Diagnostic Imaging (Routine) - Closed Specialty Diagnoses / Procedures Referred By Contac t Referred To Contact Diagnoses Placenta previa specified as without hemorrhage in second trimester Procedures US Ob Follow Up Kathia Rodríguez NP [phone] [facility] 1805-10-2000 [place] [address] Phone: tel: fax: [facility] (All Locations) Referral ID Status Reason Start Date Expiration Date Visits Re quested Visits Authorized [id number] Closed 10/26/2020 11/25/2021 1 1 Reason for Visit * Diagnostic Imaging (Routine) - Closed Specialty Diagnoses / Procedures Referred By Contac t Referred To Contact Diagnoses Placenta previa specified as without hemorrhage in second trimester Procedures US Ob Follow Up Kathia Rodríguez NP [address] [facility] [phone] [place] [address] Phone: tel: fax: [facility] (All Locations) Referral ID Status Reason Start Date Expiration Date Visits Re quested Visits Authorized [id number] Closed 10/26/2020 11/25/2021 1 1 Encounter Details Date Type Department Care Team (Latest Contact Info) Description 11/15/2020 9:05 AM CDT - 11/15/2020 11:59 PM CDT Hospital Encounter [facility] Center for Outpatient [facility] - Ultrasound [address] [facility], 7th Floor, [address] [place] [address] Francisca Poon MD [address] [facility] [address] [place] [address] Kathia Rodríguez, KINGA [address] [facility] [phone] [place] [address] Supervision of high-risk , unspecified trimester (Primary Dx); Placenta previa specified as without hemorrhage in second trimester Discharge Disposition: Discharge to [...] MOUTH DAILY 60 tablet 10/23/2020 1 vit no.[id number] (Classic ) 28 mg iron- 800 mcg [...] UP Schedule Routine, Read Routine (OP Routine) 11/15/2020 9:05 AM CDT Placenta previa specified as without hemorrhage in second trimester documented in this encounter Results * US Ob Follow Up (11/15/2020 9:05 AM CDT) Fetus# Fetus1 [facility] Placenta Details anterior, Previa-yes [facility] Estimated Weight 1,650 g&grams [facility] Presentation Vertex [facility]POINT Anatomical Region Laterality Modality Abdomen N/A Ultrasound 11/15/2020 9:10 AM CDT us Kathia Rodríguez ACQUISITION CONSULTANT IMG OB US PROCEDURE S Final Result documented in this encounter Visit Diagnoses Diagnosis Supervision of high-risk , unspecified trimester- Primary Placenta previa specified as without hemorrhage in second trimester documented in this encounter Care Teams Motor Assembly Supervisor Relationship Specialty [place] [address] [address] [place] [address] PCP - General 07/04/19 [place] [address] [address] [place] [address] 11/16/18 Ernie Shaw MD [address] [facility] [address] [place] [address] Retort Loader Obstetrics and Gynecology 06/10/20 documented as of this encounter
--- OUTSIDE RECORDS SUMMARY | 2024-02-24 20:05 | XMS_ITS | Encounter Summary ---
Author Organization [facility] Healthcare Address [address] [place] [address] Care Team Providers Care Taping Machine Operator Name Role Phone Huseyin Dangelo MD Unavailable [phone] Brian Mon MD Primary Care Provider + Ernie Shaw MD Unavailable [phone] Reason for Visit * Reason Onset Date Comments Incoming Call 10/22/2020 Having a lot of drainage from her breasts during the night Encounter Details Date Type Department Care Team (Late st Contact Info) Description 10/22/[address] [address] Violette Ludwig RN Incoming Call (Having a lot of drainage from her breasts during the night) Social History Tobacco Use Types Packs/Day Years [...] Telephone Encounter - Violette Ludwig RN - 10/22/2020 7:28 AM CDT 0715: Patient called with a question about her breasts leaking during the night. She states she is using breast pads, but is still leaking through them and her bed is wet when she wakes up each morning. Advised continued use of breast pads. Leaking of the breasts is not unusual in . Patient indicated understanding of the information provided. documented in this encounter Plan of Treatment Not on file documented as of this encounter Visit Diagnoses Not on filedocumented in this encounter Care Teams Taping Machine Operator Relationship Specialty [place] [address] [address] [place] [address] PCP - General 07/04/19 [place] [address] [address] [facility] [place] [address] 11/16/18 Ernie Shaw MD [address] [place] [address] [address] [place] [address] Electric Meter Repairer Helper Obstetrics and Gynecology 06/10/20 documented as of this encounter
--- OUTSIDE RECORDS SUMMARY | 2024-02-24 20:05 | XMS_ITS | Encounter Summary ---
Author Organization [facility] Address [address] [place] [address] Phone Care Team Providers Care Agricultural Specialist Name Role Phone Huseyin Dangelo MD Unavailable [phone] Brian Mon MD Primary Care Provider + Ernie Shaw MD Unavailable [phone] Reason for Visit * Reason Onset Date Comments Decreased Movement 11/08/2020 Encounter Details Date Type Department Care Team (Late st Contact Info) Description 11/08/2020 Telephone [facility] Maternal- Medicine [address] [facility] Health 7th Floor [address] [place] [address] Fariba Chin RN Decreased Movement [...] Telephone Encounter - Fariba Chin RN - 11/08/2020 9:51 AM CDT Carito called this morning stating she had an appt today but she cancelled it because she has onenext week and is seeing her primary ob today. However, she states that she is not feeling the baby move much at all. I explained that she should go to the [facility] for evaluation. She asked if she could just come to her appt instead. I explained that she would be best served with going to the [facility] for evaluation in the case we would need to admit her for further monitoring or intervene if something was wrong. She verbalized understanding and stated she would got to be evaluated. documented in this encounter Plan of Treatment Not on file documented as of this encounter Visit Diagnoses Not on filedocumented in this encounter Care Teams Agricultural Specialist Relationship Specialty [place] [address] [address] [place] [address] PCP - General 07/04/19 [place] [address] [address] [place] [address] 11/16/18 Ernie Shaw MD [address] [place] [address] [address] AUG[address] [place] [address] Special Education Para Professional Obstetrics and Gynecology 06/10/20 documented as of this encounter
--- OUTSIDE RECORDS SUMMARY | 2024-02-24 20:05 | XMS_ITS | Encounter Summary ---
Author Organization [facility] Healthcare Address [address] [place] [address] Care Team Providers Care Examining Chair Assembler Name Role Phone Huseyin Dangelo MD Unavailable [phone] Brian Mon MD Primary Care Provider + Ernie Shaw MD Unavailable [phone] Encounter Details Date Type Department Care Team (Late st Contact Info) Description 11/09/[address] [phone] Zuleyma Amato MD [address] [address] Social History Tobacco Use Types [...] encounter Miscellaneous Notes * Telephone Encounter - Zuleyma Amato MD - 11/09/2020 8:44 AM CDT R2 OB Update Note Patient called MFM office to discussed decreased movement. Transferred to labor and delivery because MFM not in office. States she is feeling baby move only 2 times an hour and previously feeling baby baby move 10 times per hour. Denies vaginal bleeding or LOF. Patient is worried and plans tocome to [facility] but is concerned about losing her job. Counseling patient that she should come but evaluation for decreased movement. Patient verbalized understanding. Patient has next appointment with MFM scheduled 11/15. Zuleyma Amato MD documented in this encounter Plan of Treatment Not on file documented as of this encounter Visit Diagnoses Not on filedocumented in this encounter Care Teams Examining Chair Assembler Relationship Specialty [place] [address] [address] [place] [address] PCP - General 07/04/19 [place] [address] [address] [place] [address] 11/16/18 Ernie Shaw MD [address] [place] [address] [address] [place] [address] Conductor Yard Obstetrics and Gynecology 06/10/20 documented as of this encounter
--- OUTSIDE RECORDS SUMMARY | 2024-02-24 20:05 | XMS_ITS | Encounter Summary ---
Author Organization [facility] [facility] Address [address] [place] [address] Phone Care Team Providers Care Data Specialist Name Role Phone Huseyin Dangelo MD Unavailable [phone] Brian Mon MD Primary Care Provider + Ernie Shaw MD Unavailable [phone] Encounter Details Date Type Department Care Team (Late st Contact Info) Description 11/02/2020 Telephone [facility] Maternal- Medicine [facility] [address] [facility] Medical Office [address] [place] [address] Katharina Yates, PRO Social History Tobacco Use Types Packs/Day [...] Miscellaneous Notes * Telephone Encounter - Katharina Yates RN - 11/02/2020 3:57 PM CDT Call received from pt stating that she has a growth ultrasound scheduled with her primary OB, Dr. Sheldon Delgado, on 11/15/20. Pt questioning if she needs the growth US that is scheduled with us on . Questioned pt regarding seeing Dr. Delgado as we have been seeing her for full care. Pt states she would like to still see Dr. Delgado and potentially delivery with him if there is not an emergency . Instructed pt that this is up to Dr. Delgado, but if she is potentially delivering with MFM, we would recommend she have a growth US with MFM on 11/15 as scheduled. Pt questions cancelling her appointment with MFM on 11/08, since she saw Dr. Delgado today, instructed pt that she needed to discuss this with Dr. Delgado and pt states she will leave it scheduled for now and will cancel if needed. Pt also states that she spoke with her hand quilter who states that MFM should be checking her iron levels related to her fatigue and latia's. Notified pt that her Hgb/Hct were checked on 10/19 and if more frequent evaluation was needed, her hand quilter could order or we would discuss at upcoming appointment. Patient will discuss delivery plans at next appointment. documented in this encounter Plan of Treatment Not on file documented as of this encounter Visit Diagnoses Not on filedocumented in this encounter Care Teams Data Specialist Relationship Specialty [place] [address] [address] [place] [address] PCP - General 07/04/19 [place] [address] [address] [address] 11/16/18 Ernie Shaw MD [address] [facility] [address] [address] Electrical Engineering Director Obstetrics and Gynecology 06/10/20 documented as of this encounter
--- OUTSIDE RECORDS SUMMARY | 2024-02-24 20:05 | XMS_ITS | Encounter Summary ---
Author Organization [facility] Healthcare Address [address] [place] [address] Care Team Providers Care Packaging Operator Name Role Phone Huseyin Dangelo MD Unavailable [phone] Brian Mon MD Primary Care Provider + Ernie Shaw MD Unavailable [phone] Reason for Visit * Reason Onset Date Comments Incoming Call 10/28/2020 needs not for restricted work hours Encounter Details Date Type Department Care Team (Late st Contact Info) Description 10/28/[address] [address] Amy Rodriges RN Incoming Call (needs not for restricted work hours) Social History Tobacco Use Types Packs/Day Years [...] Telephone Encounter - Amy Rodriges RN - 10/28/2020 8:43 AM CDT Patient calling stating she was supposed to have a note in the letter section of my chart for her employer restricting her work hours to 5-6 a day. Patient was here last PM to r/o ROM. States saw andtalked with Dr Lazo and he was going to write the letter for her. Will send email to office for f/u. No further questions or needs at this time. documented in this encounter Plan of Treatment Not on file documented as of this encounter Visit Diagnoses Not on filedocumented in this encounter Care Teams Packaging Operator Relationship Specialty [place] [address] [address] [facility] [place] [address] PCP - General 07/04/19 [place] [address] [address]UG[address] [facility] [place] [address] 11/16/18 Ernie Shaw MD [address] [place] [address] [address] [place] [address] Supervisor Feed Mill Obstetrics and Gynecology 06/10/20 documented as of this encounter
--- OUTSIDE RECORDS SUMMARY | 2024-02-24 20:05 | XMS_ITS | Encounter Summary ---
Author Organization [facility] [employer] [facility] Address [address] [place] [address] Phone Care Team Providers Care Administrative Sales Assistant Name Role Phone Huseyin Dangelo MD Unavailable [phone] Brian Mon MD Primary Care Provider + Ernie Shaw MD Unavailable [phone] Reason for Visit * Reason Onset Date Comments decrease FM 11/09/2020 Encounter Details Date Type Department Care Team (Late st Contact Info) Description 11/09/2020 Telephone [facility] Maternal- Medicine [facility] Outpatient Health 7th Floor [address] [place] [address] Anh Marin, PRO decrease FM Social History Tobacco Use Types Packs/Day Years [...] Encounter - Anh Marin RN - 11/09/2020 8:18 AM CDT Pt. Calling. States yesterday she was in the [facility] for evaluation for decreased movement. States she was instructed upon discharge to present to [facility] again if decreased FM continues. Pt. States now still experiencing decreased movement this am. Specifically states that she isnot feeling adequate kicks when counting. Pt. Again advised that if she is experiencing decreased FM she should present to [facility] for evaluation. Pt. States she feels like they just do the same thing every time. Pt. Educated that this evaluation is the best standard of care for well being and that though it may seem repetitive will ensure the best outcome for both her and her fetus. Pt. Then requesting to be transferred to the [facility] line. Pt. transfer complete. documented in this encounter Plan of Treatment Not on file documented as of this encounter Visit Diagnoses Not on filedocumented in this encounter Care Teams Administrative Sales Assistant Relationship Specialty [place] [address] [address]INE [facility] [place] [address] PCP - General 07/04/19 [place] [address] [address] AUGUSTINE [facility] [place] [address] 11/16/18 Ernie Shaw MD [address] [place] [address] [address] [facility] [place] [address] Vp Cardiovascular Service Line Obstetrics and Gynecology 06/10/20 documented as of this encounter
--- OUTSIDE RECORDS SUMMARY | 2024-02-24 20:05 | XMS_ITS | Encounter Summary ---
Author Organization [facility] Healthcare Address [address] [place] [address] Care Team Providers Care Land Clearer Name Role Phone Huseyin Dangelo MD Unavailable [phone] Brian Mon MD Primary Care Provider + Ernie Shaw MD Unavailable [phone] Reason for Visit * Reason Comments Problem pain in suprapubic r egion Encounter Details Date Type Department Care Team (Latest Contact Info) Description 10/25/2020 6:35 PM CDT - 10/25/2020 7:30 PM CDT Hospital Encounter [facility] [address] [place] [address] Aiden Mccoy MD [address] [place] [address] [address] [place] [address] Discharge Disposition: Discharge to home or self [...] Sign Reading Time Taken Comments Blood Pressure 115/71 10/25/2020 6:53 PM CDT Pulse 96 10/25/2020 6:53 PM CDT Temperature 36.5 ??C (97.7 ??F) 10/25/2020 7:02 PM CD T Respiratory Rate - - Oxygen Saturation - - Inhaled Oxygen Concentration - - Weight - - Height - - Body Mass Index - - documented in this encounter Discharge Diagnoses Diagnosis Encounter for supervision of other normal , third trimester - ENCOUNTER FOR SUPERVISION OF OTHER NORMAL , THIRD TRIMESTER 28 weeks gestation of - 28 WEEKS GESTATION OF documented in this encounter Discharge Instructions * Attachments The following attachments cannot be sent through Care Everywhere. * at 23 to 26 Weeks (Discharge Care) (Turkish) documented in this encounter Medications at Time of Discharge aspirin 81 mg enteric coated tablet Take 81 mg by mouth daily 1 clobetasoL (TEMOVATE) 0.05 % ointment Apply topically 2 (two) times a day 30 g 1 09/29/2020 1 ferrous gluconate 324 mg (38 mg of elemental iron) tabletIndications:Ir on deficiency TAKE 1 TABLET BY MOUTH THREE TIMES A DAY 90 tablet 2 02/16/2020 1 fluconazole (DIFLUCAN) 150 mg tablet 10/01/2020 1 hydrOXYchloroQUINE (PLAQUENIL) 200 mg tablet Take 2 tablets (400 mg total) by mouth daily 60 tablet 5 09/30/2020 2 multivitamin capsule Take 1 capsule by mouth daily 1 nitrofurantoin monohydrate (MACROBID) 100 mg capsule Take 1 capsule (100 mg total) by mouth 2 (two) times a day 14 capsule 09/15/2020 1 omeprazole (PriLOSEC) 20 mg capsule Take [...] BY MOUTH DAILY 60 tablet 10/23/2020 1 sertraline (ZOLOFT) 25 mg tablet 10/18/2020 2 valACYclovir (VALTREX) 500 mg tablet TAKE 1 TAB BY MOUTH 3 TIMES DAILY FOR 7 DAYS. 12/03/2019 1 documented as of this encounter Discharge Disposition Disposition Code Departure Means Destination Discharge to home or self care documented in this encounter Progress Notes * Sara Rider RN - 10/25/2020 7:30 PM CDT Pt to OB with c/o suprapubic pressure. Fetus reactive and lots of movement felt. No bleeding or leaking of fluid. After evaluation, pt feeling better and ready to be discharged. Will follow up at already scheduled appointment in AM. Discharge instructions given and signed. Pt verbalized understanding and no further questions at this time. Pt ambulated off unit. Sara Rider RN documented in this encounter Plan of Treatment Not on file documented as of this encounter Procedures Procedure Name Priority Date/Time Associated Diagnosis Comments DRUG SCREEN, URINE L AND D WITH REFLEX CONFIRMATION STAT 10/25/2020 7:00 PM CDT URINALYSIS AND REFLEX TO MICROSCOPIC AND CULTURE STAT 10/25/2020 7:00 PM CDT URINALYSIS, MICROSCOPIC ONLY STAT 10/25/2020 7:00 PM CDT documented in this encounter Results * (ABNORMAL) Urinalysis, microscopic only (10/25/2020 7:00 PM CDT) WBC, ur 0-5 0 - 5 /HPF [facility] ([place]) RBC, ur 0-2 0 - 2 /HPF [facility] ([place]) Epithelial cells, squamous, ur 1-5 0 - 5 /HPF [facility] ([place]) Bacteria, ur 2+(A) [facility] ([place]) Mucous, ur Present(A) [facility] ([place]) Hyaline casts, ur 1-5 0 - 10 /LPF [facility] ([place]) Culture Reflex Comment Reflex conditions for urine culture (WBC >10) not met. [facility] ([place]) Urine, clean voided 10/25/2020 7:00 PM CDT 10/25/2020 7:04 PM CDT us Aiden Mccoy MD LAB URINE ORDERABLES F inal Result [facility] Department [place] [address] * (ABNORMAL) Urinalysis reflex to microscopic and culture Urine, clean voided (10/25/2020 7:00 PM CDT) Color, ur Yellow Yellow [facility] ([place]) Clarity, ur Clear Clear [facility] ([place]) Specific gravity, ur 1.033(H) 1.010 - 1.025 [facility] ([place]) pH, [...] UA will be performed. [facility] ([place]) Urine, clean voided 10/25/2020 7:00 PM CDT 10/25/2020 7:04 PM CDT Narrative [facility] ([place]) - 10/25/2020 7:07 PM CDT ?? Urine pH is affected by diet, medications, systemic acid-base disturbances, and renal tubular function. ??pH may affect urinary stone formation. ??For example, urine pH below 6.0 may help reduce the tendency for calcium phosphate stones and pH greater than 6.0 may reduce the tendency for uric acid stone formation. Source: [facility]. Last revised 03-08-2017 us Aiden Mccoy MD LAB MICROBIOLOGY - GEN ERAL ORDERABLES Final Result [facility] ([place]) [address] [facility] Department [place] [address] * Drug Screen, Urine L and D with Reflex Confirmation (10/25/2020 7:00 PM CDT) Amphetamine, ur Not Detected CutOff 500ng/mL [facility] ([place]) Comment: Interpretive Data - Amphetamines: ??Samples containing greater than 500 ng/mL d-methamphetamine ??or other cross-reacting amphetamine compounds are reported as positive. ??Amphetamine immunoassays are subject to significant false positive rates due to cross-reactivity of non-amphetamine drugs. Current Interpretive Data was last reviewed 2018. Barbiturates, ur Not Detected CutOff 200ng/mL [facility] ([place]) Comment: Interpretive Data - Barbiturates: ??Samples containing greater than 200 ng/mL secobarbital or other cross-reacting barbiturate compounds are reported as positive. ??False positive and false negative results are possible. Current Interpretive Data was last reviewed 2018. Benzodiazepines, ur Not Detected CutOff 100ng/mL [facility] ([place]) Comment: Interpretive Data - Benzodiazepines: ??Samples [...] 2018. Opiates, ur Not Detected CutOff 300ng/mL [facility] ([place]) Comment: Interpretive Data - Opiates: ??Samples containing greater than 300 ng/mL morphine or other cross-reacting compounds are reported as positive. ??False positive and false negative results are possible. Current Interpretive Data was last reviewed 2018. Oxycodone, ur Not Detected CutOff 100ng/mL [facility] ([place]) Comment: Interpretive Data - Oxycodone: ??Samples containing greater than 100 ng/mL oxycodone or other cross-reacting compounds are reported as positive. ??False positive and false negative results are possible. ?? Current Interpretive Data was last reviewed 2018. Phencyclidine, ur Not Detected CutOff 25 ng/mL [facility] ([place]) Comment: Interpretive Data - Phencyclidine: ??Samples containing greater than 25 ng/mL phencyclidine or other cross-reacting compounds are reported as positive. ??False positive and false negative results are possible. ?? Current Interpretive Data was last reviewed 2018. Urine Creatinine 157 mg/dL [facility] ([place]) Comment: Interpretive Data Urine Creatinine: < 10 mg/dL is extremely dilute = or > 10 but < 20 mg/dL is dilute = or > 20 mg/dL is normal Current Interpretive Data was last revised on 2017. Urine 10/25/2020 7:00 PM CDT 10/25/2020 7:04 PM CDT Narrative [facility] ([place]) - 10/25/2020 7:34 PM CDT Drug of Abuse screening is performed by immunoassay for medical purposes only. ??This is not to be used for Pain Management purposes. ??If Detected, confirmation testing will be performed for Amphetamines, Barbiturates, Benzodiazepines, Cannabinoids, Cocaine, Fentanyl, Methadone, Opiates, Oxycodone or Phencyclidine. Aiden Mccoy MD LAB URINE ORDERABLES F inal Result [facility] ([place]) [address] [facility] Department [place] [address] documented in this encounter Visit Diagnoses Not on filedocumented in this encounter Care Teams Land Clearer Relationship Specialty [place] [address] [place] [address] PCP - General 07/04/19 [place] [address] [address] [place] [address] 11/16/18 Ernie Shaw MD [address] [place] [address] [address] [place] [address] Chief Port Director Obstetrics and Gynecology 06/10/20 documented as of this encounter
--- OUTSIDE RECORDS SUMMARY | 2024-02-24 20:05 | XMS_ITS | Encounter Summary ---
Author Organization [facility] Healthcare Address [address] [place] [address] Care Team Providers Care Engineering Specialist Technician Name Role Phone Huseyin Dangelo MD Unavailable [phone] Brian Mon MD Primary Care Provider + Ernie Shaw MD Unavailable [phone] Reason for Visit * Reason Onset Date Comments Incoming Call 11/04/2020 Constipat ion Encounter Details Date Type Department Care Team (Late st Contact Info) Description 11/04/2020 Nurse Triage [address] [address] Mariza Mccoy RN Social History Tobacco Use [...] Telephone Encounter - Mariza Mccoy RN - 11/04/2020 8:20 PM CDT Reason for Disposition ? ? [1] Uses laxative (e.g., PEG / Miralax. Milk of magnesia) or enema AND [2] > once a month Answer Assessment - Initial Assessment Questions 1. STOOL PATTERN OR FREQUENCY: How often do you pass bowel movements (BMs)? (Normal range: tid toq 3 days) When was the last BM passed? Passed stool today 2. STRAINING: Do you have to strain to have a BM? Yes 3. RECTAL PAIN: Does your rectum hurt when the stool comes out? If so, ask: Do you have hemorrhoids? How bad is the pain? (Scale 1-10; or mild, moderate, severe) Yes 4. STOOL COMPOSITION: Are the stools hard? Yes 5. BLOOD ON STOOLS: Has there been any blood on the toilet tissue or on the surface of the BM? Ifso, ask: When was the last time? No 6. CHRONIC CONSTIPATION: Is this a new problem for you? If no, ask: How long have you had this problem? (days, weeks, months) Worsening over the last week 7. CHANGES IN DIET: Have there been any recent changes in your diet? No 8. MEDICATIONS: Have you been taking any new medications? What type of vitamins are youtaking? No 9. LAXATIVES: Have you been using any laxatives or enemas? If yes, ask What, how often, and whenwas the last time? No has tried stool softners, miralax and a suppository. Has senna at home and an enema and has not tried it yet. Wants to know if Lactalose can be ordered. 10. OTHER SYMPTOMS: Do you have any other symptoms? (e.g., abdominal pain, fever, vaginal bleeding, decreased movement) Abdominal pain, and pelvic pressure. Denies BLC, and decreased movement Protocols used: - [id number] documented in this encounter Plan of Treatment Not on file documented as of this encounter Visit Diagnoses Not on filedocumented in this encounter Care Teams Engineering Specialist Technician Relationship Specialty [place] [address] [address] [place] [place] [address] PCP - General 07/04/19 [place] [address] [address] [address] 11/16/18 Ernie Shaw MD [address] [place] [address] [address] [place] [address] Airfield Services Officer Obstetrics and Gynecology 06/10/20 documented as of this encounter
--- OUTSIDE RECORDS SUMMARY | 2024-02-24 20:05 | XMS_ITS | Encounter Summary ---
Author Organization [facility] Address [address] [place] [address] Phone Care Team Providers Care Checkman Name Role Phone Huseyin Dangelo MD Unavailable [phone] Brian Mon MD Primary Care Provider + Ernie Shaw MD Unavailable [phone] Reason for Referral * Diagnostic Imaging (Routine) - Closed Specialty Diagnoses / Procedures Referred By Contac t Referred To Contact Diagnoses Placenta previa specified as without hemorrhage in second trimester Procedures US Ob Follow Up Kathia Rodríguez NP [address] [facility] [phone] [place] [address] Phone: tel: fax: [facility] (All Locations) Referral ID Status Reason Start Date Expiration Date Visits Re quested Visits Authorized [id number] Closed 10/26/2020 11/25/2021 1 1 Reason for Visit * Reason Comments High Risk Gestation Encounter Details Date Type Department Care Team (Late st Contact Info) Description 10/26/2020 1:30 PM CDT Office Visit [facility] Maternal- Medicine [address] [facility] [address] [place] [id number] Kathia Rodríguez NP [address] [facility] [phone] [place] [address] Generalized anxiety disorder (Primary Dx); Left arm pain; Lupus (CMS/HCC) (HCC); Placenta previa specified as without hemorrhage in second trimester; Secondary adrenal insufficiency (CMS/HCC) (HCC); Supervision of high-risk , unspecified trimester; Polyhydramnios [...] Sign Reading Time Taken Comments Blood Pressure 116/72 10/26/2020 1:24 PM CDT Pulse 97 10/26/2020 1:24 PM CDT Temperature - - Respiratory Rate - - Oxygen Saturation 98% 10/26/2020 1:24 PM CDT Inhaled Oxygen Concentration - - Weight 82.6 kg (182 lb) 10/26/2020 1:24 PM CDT Height 160 cm (5' 3 ) 10/26/2020 1:24 PM CDT Body Mass Index 32.24 10/26/2020 1:24 PM CDT documented in this encounter Progress Notes * Kathia Rodríguez, KINGA - 10/26/2020 1:30 PM CDT [facility] Return Visit 10/26/2020 Carito Spence is a 30 y.o. at 26w5d who is here for a return OB visit. Her iscomplicated by lupus, adrenal insufficeny, 2nd trimester loss and anxiety. Subjective: Overall doing well. Some anxiety today regarding her previa, having to do her gtt today. She denies contractions, loss of fluid, or vaginal bleeding and reports positive movement. Questions today regarding TOD and scheduling. Objective: BP 116/72 Pulse 97 Ht 160 cm (5' 3 ) Wt 182 lb (82.6 kg) LMP (LMP Unknown) Comment: LMP endof Mar 2020 SpO2 98% BMI 32.24 kg/m?? General: NAD Abdomen: Soft, gravid, NT, FHR + Extremities: WWP, no edema Ultrasound: 10/26/2020 AGA, BRI 24.2cm- see finalized US report Assessment/Plan: Carito Spence is a 30 y.o. at 26w5d with a complicated by the following: Problem List MANE 01/30/21 Lupus ([facility]) ([facility]) Overview S/p counseling at initial visit Plan: -Currently takinghydroxychloroquine to 200 mg alternating with 400 mg every other day, prednisone 10mg daily -Discussion with rheum in starting azothiaprine - discontinued benlysta after counseling d/t concerns -Serial growths - testing at 32 weeks -81 mg ASA at 12 weeks -BMP q trimester for renal surveillance. -Baseline preElabs, P:C 91 Secondary adrenal insufficiency ([facility]) ([facility]) Overview Carito has a history of possible secondary adrenal insufficiency 2/2 chronic steroid use for her lupus. She is currently on prednisone 5 mg for her lupus. She was advised to transition to hydrocortisone or higher dose prednisone by endocrinology during her and stress-dose steroids were discussed. S/p counseling at initial visit Generalized anxiety disorder - Primary Overview Ms spence reports severe anxiety and near panic in this thus far. This is not a new issuefor her, but it has significantly worsened in . S/p counseling at initial visit Plan: -[facility] referral, following -Zoloft 25 mg/day -psych referral Current Assessment & Plan Will f/u with [facility] to make sure they are still following pt regularly. Placenta previa specified as without hemorrhage in second trimester Overview Anterior placenta previa. Reviewed bleeding precautions, avoidance of sex and digital exams. Re-evaluate placental location ~ 28 or sooner if clinically indicated 10/22/2020 left hospital AMA after 3rd bleed, previously counseled S/p 1 dose of BMZ but declined 2nd dose Counseling again today regarding the risks associated with a bleeding previa including the risk of maternal hemorrhage and . Voiced understanding and will consider admission later in the . Reviewed strong recommendation to present to her closest hospital with bleeding or contractions. Relevant Orders US Ob Follow Up Polyhydramnios in third trimester, not applicable or unspecified fetus Overview Mild polyhydramnios was noted again today. [] diabetic screen- ordered for today Discussed with Dr. Montoya and Dr. Serrano and plan for repeat US in 3 weeks with growth and placental evaulation Current Assessment & Plan We counseled her that the majority of cases are idiopathic; however, other causes include diabetes,aneuploidy, and congenital anomalies such as gastrointestinal, central nervous system, and cardiac.S/p low risk NIPT and normal anatomy scan. The risks of polyhydramnios, including maternal discomfort, labor, rupture of membranes, cord accident, and hemorrhage, were all briefly reviewed. Diabetes screen is ordered for today. We will repeat her fluid check in 3 weeks with her next growth. RESOLVED: Left arm pain Overview Reports pain started 5 days ago. She [...] we will discuss a referral for imagining. [facility] precautions reviewed. 10/26/2020 now resolved Supervision of high-risk , unspecified trimester Overview [x] Full MFM Care; [] Red Team [] Blue Team Referring Provider: Dr. Sheldon Delgado [x] Dating Criteria: US 06/04/20 with MANE 01/30/21 [x] Labs: Rh [ A+], Ab [Neg ], Rubella [Imm ], HIV [Neg ], HepBSAg [Neg ], RPR [NR ], GC/CT [negative/negative] [x] Genetic Screening: [place] low risk 07/09 [x] CBC/Hgb 11.7/35.0/306 [x] Early 1hr GTT (if indicated) [] UCx: [x] Pap: 05/31/20 unsatisfactory for evaluation due to insufficient squamous cellularity [x] LD ASA (if indicated) starting at 12 weeks: [] EPDS [ ]; [facility] referral (if indicated) 2nd Tri Labs: [x] Anatomy ultrasound [] CBC/1hr gtt at 24-28wks: 10/19: 10.3/30.9/272, gtt ordered for today [] Flu Shot (Oct-Jan): [] Tdap (27-36wks): [x] COVID Vaccine: s/p both doses 3rd Tri Labs: [] CBC/HIV/RPR: [] GBS: [] COVID testing: Counselling [] MOD: Current plan is for C/S at 37 weeks in the setting of a previa [x] Place of delivery: [facility] [] MOC: [] Method of feeding: [] Nursing Unit Clerk: [] PP Depression Discussed: Relevant Orders Glucose tolerance testing 50 gram gestational screen Specialty Infusion Treatment Lupus (CMS/HCC) (HCC) Overview S/p counseling at initial visit Plan: -Currently takinghydroxychloroquine to 200 mg alternating with 400 mg every other day, prednisone 10mg daily -Discussion with rheum in starting azothiaprine - discontinued benlysta after counseling d/t concerns -Serial growths - testing at 32 weeks -81 mg ASA at 12 weeks -BMP q trimester for renal surveillance. -Baseline preElabs, P:C 91 Strict PTL/PEC/FKC precautions reviewed. Reviewed the importance of presenting to her closest hospital in the case of an emergency for evaluation and if necessary and safe will be transferred to [facility]. KATHRIN [place] documented in this encounter Miscellaneous Notes * Assessment & Plan Note - Kathia Rodríguez NP - 10/26/2020 2:13 PM CDTAssociated Problem(s): Generalized anxiety disorder Will f/u with [facility] to make sure they are still following pt regularly. * Assessment & Plan Note - Kathia Rodríguez NP - 10/26/2020 1:48 PM CDTAssociated Problem(s): Polyhydramnios in third trimester, not applicable or unspecified fetus We counseled her that the majority of cases are idiopathic; however, other causes include diabetes,aneuploidy, and congenital anomalies such as gastrointestinal, central nervous system, and cardiac.S/p low risk NIPT and normal anatomy scan. The risks of polyhydramnios, including maternal discomfort, labor, rupture of membranes, cord accident, and hemorrhage, were all briefly reviewed. Diabetes screen is ordered for today. We will repeat her fluid check in 3 weeks with her next growth. documented in this encounter Plan of Treatment Not on file documented as of this encounter Results * US Ob Follow Up (11/15/2020 9:05 AM CDT) Fetus# Fetus1 VIEWPOINT Placenta Details anterior, Previa-yes VIEWPOINT Estimated Weight 1,650 g&grams VIEWPOINT Presentation Vertex VIEWPOINT Anatomical Region Laterality Modality Abdomen N/A Ultrasound 11/15/2020 9:10 AM CDT us Kathia Rodríguez NP IMG OB US PROCEDURE S Final Result * Glucose tolerance testing 50 gram gestational screen (10/26/2020 2:51 PM CDT) GTT 50g gest screen 120 <=140 mg/dL [facility] Comment: Interpretive Data Used for suspected gestational diabetes. The screening test uses 50 grams of glucose with sample obtained 1 hr later. Normal range: < 140 mg/dL. A glucose value of >140 mg/dL generally indicates the need for a full diagnostic tolerance test. Reference Interval Info: Diabetes Care 2005, Vol 28. Supplement 1,S37-S42. Report of the Expert Committee on the Diagnosis and Classification of Diabetes Mellitus. Diabetes Care 2020; 43(Supplement 1):S14-31. Current interpretive data was last revised on 2020. Blood 10/26/2020 2:51 PM CDT 10/26/2020 3:33 PM CDT us Kathia Rodríguez ROLL SHOP SUPERVISOR LAB BLOOD ORDERABLE S Final Result [facility] Department [place] [address] documented in this encounter Visit Diagnoses Diagnosis Generalized anxiety disorder- Primary Left arm pain Pain in soft tissues of limb Lupus Systemic lupus erythematosus Placenta previa specified as without hemorrhage in second trimester Secondary adrenal insufficiency (HCC) Supervision of high-risk , unspecified trimester Polyhydramnios in third trimester, not applicable or unspecified fetus documented in this encounter Historical Medications * This list may reflect changes made after this encounter. vit [id number] (Classic ) 28 mg iron- 800 mcg tablet Take 1 tablet by mouth daily 01/13/2021 added in this encounter Care Teams Checkman Relationship Specialty [place] [address] [address] [place] [address] PCP - General 07/04/19 [place] [address] [address] [place] [address] 11/16/18 Ernie Shaw MD [address] [place] [address] [address] [place] [address] Inclined Railway Operator Obstetrics and Gynecology 06/10/20 documented as of this encounter
--- OUTSIDE RECORDS SUMMARY | 2024-02-24 20:05 | XMS_ITS | Encounter Summary ---
Author Organization [facility] Healthcare Address [address] [place] [address] Care Team Providers Care Order Caller Name Role Phone Huseyin Dangelo MD Unavailable [phone] Brian Mon MD Primary Care Provider + Ernie Shaw MD Unavailable [phone] Reason for Visit * Reason Onset Date Comments Rupture of Membranes 10/27/2020 Encounter Details Date Type Department Care Team (Late st Contact Info) Description 10/27/2020 Nurse Triage [address] [address] Silas Lazo MD [address] [phone] Social History Tobacco Use Types Packs/Day Years [...] encounter Miscellaneous Notes * Telephone Encounter - Lex Holguin RN - 10/27/2020 11:20 PM CDT Patient called stating I think my water broke. Told patient to come in for evaluation. documented in this encounter Plan of Treatment Not on file documented as of this encounter Visit Diagnoses Not on filedocumented in this encounter Care Teams Order Caller Relationship Specialty [place] [address] [address] [facility] [place] [address] PCP - General 07/04/19 [place] [address] [address] [facility] [place] [address] 11/16/18 Ernie Shaw MD [address] [place] [address] [address] [place] [address] Utility Accounts Director Obstetrics and Gynecology 06/10/20 documented as of this encounter
--- OUTSIDE RECORDS SUMMARY | 2024-02-24 20:05 | XMS_ITS | Encounter Summary ---
Author Organization [facility] Healthcare Address [address] [place] [address] Care Team Providers Care Shipfitters Supervisor Name Role Phone Huseyin Dangelo MD Unavailable [phone] Brian Mon MD Primary Care Provider + Ernie Shaw MD Unavailable [phone] Encounter Details Date Type Department Care Team (Late st Contact Info) Description 11/08/2020 Nurse Triage [address] [address] Saúl Lo RN Social History Tobacco Use Types Packs/Day [...] Telephone Encounter - Saúl Lo RN - 11/08/2020 6:34 PM CDT Pt called in with c/o having not having any movement since she left the [facility] @ 1300. Pt statesthat she went home and ate and took a nap. When she woke up she has been drinking lots of fluids and laying on her side every since. Denies feeling the baby move at all. Pt instructed to come back into the [facility] to be evaluated. States she will try and drink some more fluids and see if the baby starts to move. If the baby doesn't start moving then pt states she will come in to the [facility]. Reason for Disposition ? ? [1] 23 or more weeks AND [2] baby moving less today by kick count (e.g., kick count < 5 in 1 hour or < 10 in 2 hours) Protocols used: - DECREASED [id number] documented in this encounter Plan of Treatment Not on file documented as of this encounter Visit Diagnoses Not on filedocumented in this encounter Care Teams Shipfitters Supervisor Relationship Specialty [place] [address] [address] [place] [address] PCP - General 07/04/19 [place] [address] [address] [place] [address] 11/16/18 Ernie Shaw MD [address] [place] [address] [address] [place] [address] Timber Estimator Obstetrics and Gynecology 06/10/20 documented as of this encounter
--- OUTSIDE RECORDS SUMMARY | 2024-02-24 20:05 | XMS_ITS | Encounter Summary ---
Author Organization [facility] of [facility] Address [address] [place] [address] Phone Care Team Providers Care Lead Care Manager Name Role Phone Huseyin Dangelo MD Unavailable [phone] Brian Mon MD Primary Care Provider + Ernie Shaw MD Unavailable [phone] Encounter Details Date Type Department Care Team (Late st Contact Info) Description 10/22/2020 Telephone [facility] Maternal- Medicine [address] [facility] Outpatient Health 7th Floor [address] [place] [address] Anh Marin, PRO Social [...] Telephone Encounter - Anh Marin RN - 10/22/2020 8:47 AM CDT Pt. Calling. States she has a lot of clear, odorless fluid coming out of her vagina. when I reach into my pants I fill the cup of my hand with fluid, pt. States having several episodes of gushing when she stands. Pt. Advised that she should seek care at the [facility]. Pt. States she has to work the next couple of days and does not know yet if she wants to go back to the [facility]. Pt. Did mention that she has been considering if she should have stayed in the hospital when she was admitted. I did tell her that she is welcome to bring a bag with her and go back, as it was her choice to leave during herlast admission. Educated pt. That due to the nature of her , we would advise taking extra precaution when any s/s out of the norm in occurs. Pt. States she will think about it. Then questioned can I just use a doppler to make sure the baby is ok? Pt. Educated that she is not medically trained to interpret heart tones and would require medical evaluation to check on status. Pt. Verbalized understanding. Pt. Encouraged again that she should seek care at the [facility] this am. Pt. States she may go in tomorrow for evaluation. Pt. Encouraged that if she refuses to seek care, she should at least call back with any further concerns that she has. documented in this encounter Plan of Treatment Not on file documented as of this encounter Visit Diagnoses Not on filedocumented in this encounter Care Teams Lead Care Manager Relationship Specialty [place] [address] [address] PCP - General 07/04/19 [place] [address] [address] [place] [address] 11/16/18 Ernie Shaw MD [address] [place] [address] [address] [place] [address] Clinical Services Professional Obstetrics and Gynecology 06/10/20 documented as of this encounter
--- OUTSIDE RECORDS SUMMARY | 2024-02-24 20:05 | XMS_ITS | Encounter Summary ---
Author Organization [facility] Address [address] [place] [address] Phone Care Team Providers Care Shipping Services Sales Representative Name Role Phone Huseyin Dangelo MD Unavailable [phone] Brian Mon MD Primary Care Provider + Ernie Shaw MD Unavailable [phone] Reason for Visit * Reason Onset Date Comments concern for US imaging 10/26/2020 Encounter Details Date Type Department Care Team (Late st Contact Info) Description 10/26/2020 Documentation [facility] Maternal- Medicine [address] [place] [address] Health 7th Floor [address] [place] [address] Anh Marin, PRO concern for US imaging Social History Tobacco Use Types Packs/Day Years [...] Progress Notes * Anh Marin RN - 10/26/2020 3:38 PM CDT Pt. Calling. States her babies, Mayra, nose looked slightly bigger on US imaging today in comparison to other imaging. Pt. Has concern for Trisomy 21 due to her interpretation of imagind today alongwith the presence of boarderline poly today. . Pt. Reassured that Polyhydramnios can be caused by avariety of different causes and can also be completely benign and that this is something we will continue to watch. Pt. Also aware we sent a routine 1hr GTT today which will also give us more data tocontribute to her care and could even explain an elevated fluid leve. Pt. Assured that no findings were noted on the US that made provider suspicious, other than the known complications in her . Pt. Also educated that the cffDNA screening looks for abnormal fractions in the mothers DNA, specifically for chromosomes 13, 18, 21, 23, and that the screening is sensitive to trisomy 21, all of which resulted low risk. Pt. States she feels better after having our discussion and she has no further questions at this time. documented in this encounter Plan of Treatment Not on file documented as of this encounter Visit Diagnoses Not on filedocumented in this encounter Care Teams Shipping Services Sales Representative Relationship Specialty [place] [address] [address] [facility] [place] [address] PCP - General 07/04/19 [place] [address] [address] [facility] [place] [address] 11/16/18 Ernie Shaw MD [address] [facility] [address] [place] [address] Continuity Tester Obstetrics and Gynecology 06/10/20 documented as of this encounter
--- OUTSIDE RECORDS SUMMARY | 2024-02-24 20:05 | XMS_ITS | Encounter Summary ---
Author Organization [facility] Healthcare Address [address] [place] [address] Care Team Providers Care Ski Instructor Name Role Phone Huseyin Dangelo MD Unavailable [phone] Brian Mon MD Primary Care Provider + Ernie Shaw MD Unavailable [phone] Reason for Visit * Reason Onset Date Comments Incoming Call 10/24/2020 Encounter Details Date Type Department Care Team (Late st Contact Info) Description 10/24/2020 Nurse Triage [address] [address] Saúl Lo, PRO Social History Tobacco Use [...] Telephone Encounter - Saúl Lo RN - 10/24/2020 6:07 PM CDT Pt calling with c/o bruising in the middle of her back. States that she sent in a picture thru her My Chart . Requesting a call back from the doctor. Talked with Dr. Saavedra who viewed picture that pt uploaded to her chart. States to let the pt know that it looks fine, looks like it could have come from the monitor belts rubbing up against her back. If it was bothering her she could put ice on it. Pt called back and informed of what Dr. Saavedra stated and pt verbalizes understanding and statesok. documented in this encounter Plan of Treatment Not on file documented as of this encounter Visit Diagnoses Not on filedocumented in this encounter Care Teams Ski Instructor Relationship Specialty [place] [address] [address] [facility] [place] [address] PCP - General 07/04/19 [place] [address] [address] [place] [address] 11/16/18 Ernie Shaw MD [address] [place] [address] [address] [facility] [place] [address] Funeral Attendant Obstetrics and Gynecology 06/10/20 documented as of this encounter
--- OUTSIDE RECORDS SUMMARY | 2024-02-24 20:05 | XMS_ITS | Encounter Summary ---
Author Organization [facility] Healthcare Address [address] [place] [address] Care Team Providers Care Online Merchandiser Name Role Phone Huseyin Dangelo MD Unavailable [phone] Brian Mon MD Primary Care Provider + Ernie Shaw MD Unavailable [phone] Reason for Visit * Reason Comments Problem Leaking Encounter Details Date Type Department Care Team (Latest Contact Info) Description 10/22/2020 10:30 AM CDT - 10/22/2020 1:45 PM CDT Hospital Encounter [address] [address] Dilan Riley MD [address] [facility] [phone] [place] [address] Discharge Disposition: Discharge to home or self [...] Sign Reading Time Taken Comments Blood Pressure 118/68 10/22/2020 10:49 AM CDT Pulse 114 10/22/2020 10:50 AM CDT Temperature 36.9 ??C (98.4 ??F) 10/22/2020 10:49 AM C DT Respiratory Rate 18 10/22/2020 10:49 AM CDT Oxygen Saturation 97% 10/22/2020 10:50 AM CDT Inhaled Oxygen Concentration - - Weight 81.6 kg (180 lb) 10/22/2020 10:49 AM CDT Height 160 cm (5' 3 ) 10/22/2020 10:49 AM CDT Body Mass Index 31.89 10/22/2020 10:49 AM CDT documented in this encounter Discharge Diagnoses Diagnosis Complete placenta previa nos or without hemorrhage, second trimester - COMPLETE PLACENTA PREVIA NOS OR WITHOUT HEMORRHAGE, SECOND TRIMESTER Other mental disorders complicating , second trimester - OTHER MENTAL DISORDERS COMPLICATING , SECOND TRIMESTER Generalized anxiety disorder - GENERALIZED ANXIETY DISORDER Attention-deficit hyperactivity disorder, unspecified type - ATTENTION-DEFICIT HYPERACTIVITY DISORDER, UNSPECIFIED TYPE Major depressive disorder, single episode, unspecified - MAJOR DEPRESSIVE DISORDER, SINGLE EPISODE, UNSPECIFIED Endocrine, nutritional and metabolic diseases complicating , second trimester - ENDOCRINE, NUTRITIONAL AND METABOLIC DISEASES COMPLICATING , SECOND TRIMESTER Other adrenocortical insufficiency (HCC) - OTHER ADRENOCORTICAL INSUFFICIENCY Diseases of the nervous system complicating , second trimester - DISEASES OF THE NERVOUS SYSTEM COMPLICATING , SECOND TRIMESTER Epilepsy, unspecified, not intractable, without status epilepticus (HCC) - EPILEPSY, UNSPECIFIED, NOT INTRACTABLE, WITHOUT STATUS EPILEPTICUS Other specified diseases and conditions complicating - OTHER SPECIFIED DISEASES AND CONDITIONS COMPLICATING Systemic lupus erythematosus, unspecified (HCC) - SYSTEMIC LUPUS ERYTHEMATOSUS, UNSPECIFIED Rheumatoid arthritis, unspecified (HCC) - RHEUMATOID ARTHRITIS, UNSPECIFIED Chronic kidney disease, unspecified - CHRONIC KIDNEY DISEASE, UNSPECIFIED Diseases of the respiratory system complicating , second trimester - DISEASES OF THE RESPIRATORY SYSTEM COMPLICATING , SECOND TRIMESTER Unspecified asthma, uncomplicated - UNSPECIFIED ASTHMA, UNCOMPLICATED Anemia complicating , second trimester - ANEMIA COMPLICATING , SECOND TRIMESTER Anemia in other chronic diseases classified elsewhere - ANEMIA IN OTHER CHRONIC DISEASES CLASSIFIED ELSEWHERE (MANIFESTATION) Diseases of the digestive system complicating childbirth - DISEASES OF THE DIGESTIVE SYSTEM COMPLICATING CHILDBIRTH Noninfective gastroenteritis and colitis, unspecified - NONINFECTIVE GASTROENTERITIS AND COLITIS, UNSPECIFIED 26 weeks gestation of - 26 WEEKS GESTATION OF Personal history of nicotine dependence - PERSONAL HISTORY OF NICOTINE DEPENDENCE [facility] (current) use of aspirin - INDUSTRIAL SALES REPRESENTATIVE (CURRENT) USE OF ASPIRIN intermediate accountant (current) use of antibiotics - INDUSTRIAL SALES REPRESENTATIVE (CURRENT) USE OF ANTIBIOTICS Other [facility] (current) drug therapy - OTHER HALF-WAY (CURRENT) DRUG THERAPY documented in this encounter Discharge Instructions * Attachments The following attachments cannot be sent through Care Everywhere. * AT 23 TO 26 WEEKS (DISCHARGE CARE) (MALAYSIAN) documented in this encounter Medications at Time [...] TABLETS(10 MG) BY MOUTH DAILY 60 tablet 08/09/2020 1 predniSONE (DELTASONE) 5 mg tablet TAKE [...] documented in this encounter H&P Notes * Kyra [place] MD - 10/22/2020 11:22 AM CDT Obstetrics H&P Chief Complaint: r/o SROM Estimated Date of Delivery: 01/27/21 Provider: RENETTA HPI: Carito Madison is a 30 y.o. female at 26w1d gestation, dated by 1st trimester ultrasound Her is complicated by complete placenta previa, marginal cord insertion, SLE, secondary adrenal insufficiency, epilepsy, ADHD, MARIMAR Presents reports large gush of fluid upon waking and getting up from bed this AM. No ongoing leakage of fluid. States that she has had similar episodes in the past, most recently 4 days ago when she presented to the [facility] and was ruled out for PPROM. Patient has not had any additional episodes of vaginal bleeding since leaving [facility] from [facility] on 10/19. 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 Patient is . History of Abnormal Pap: None STD History: herpes and trichomoniasis Past Medical History: Diagnosis Date ??? Anemia ??? Anxiety ??? Asthma ??? Chronic diarrhea ??? Chronic kidney disease ??? Depression ??? Headache, tension-type ??? Lupus (CMS/HCC) (HCC) ??? PONV (postoperative nausea and vomiting) ??? 07/13/2015 ??? Rheumatoid arthritis (HCC) ??? Seizures (CMS/HCC) (HCC) Chronic hypertension: No Diabetes: No Asthma: Yes Past Surgical History: Procedure Laterality Date ??? [...] Yes Partners: Male Support System: Supported by Safe at home: Yes family history includes [...] clobetasoL (TEMOVATE) 0.05 % ointment ferrous gluconate 324 mg (38 mg of elemental iron) tablet fluconazole (DIFLUCAN) 150 mg tablet hydrOXYchloroQUINE (PLAQUENIL) 200 mg tablet multivitamin capsule nitrofurantoin monohydrate (MACROBID) 100 mg capsule omeprazole (PriLOSEC) 20 mg capsule ondansetron ODT (ZOFRAN-ODT) 8 mg disintegrating tablet polyethylene glycol (MIRALAX) 17 gram/dose powder predniSONE (DELTASONE) 5 mg tablet sertraline (ZOLOFT) 25 mg tablet valACYclovir (VALTREX) 500 mg tablet Review of Sys: Negative except per HPI Vitals: Temp: [98.4 ??F] 98.4 ??F Pulse: [113-114] 114 Resp: [18] 18 BP: (118)/(68) 118/68 Physical Exam: General: NAD, mood appropriate Cardiovascular: Regular rate and rhythm Pulmonary: Clear to ausculation bilaterally Abdomen: Gravid, non-tender Extremities: Warm and well perfused Speculum Exam: no pooling of fluid seen, Nitrizine test is negative, Ferning test is negative, deferred Cervix: deferred given known complete previa ROM+ negative Monitoring: Baseline: 140 bpm, Variability: Moderate, Accelerations: Present and Decelerations: None Uterine Activity: No contractions seen on toco Interpretation: Reactive Ultrasound: Vertex presentation Anterior placenta Previa: Yes BRI 18.7cm Labs: Lab Results Component Value Date ABORH A Positive 10/18/2020 IDCOOMB Negative 10/18/2020 Assessment and Plan Carito Madison is a 30 y.o. female at 26w1d who presented with r/o SROM #r/o SROM - low concern for SROM with negative pooling, ferning, nitrazine and negative ROM+ - Reactive NST #Complete previa - No additional vaginal bleeding - Previously admitted to [facility] and left [facility], counseled extensively on risk of rebleeding at that time - Return precautions reviewed Dispo: Discharge home Plan discussed with Dr. Genao. Kyra [place] MD 10/22/20 [facility] Fellow Attestation I have discussed Carito Madison with the above provider on 10/22/2020. I have reviewed the treatment plan and recommendations. I agree with the findings and the plan of care as documented in the note with the following addendum: Briefly, this is a 30 y.o. at 26w1d who presented for rule out SROM. Patient not ruptured. Alma Genao MD Maternal- Medicine Fellow Cosigned by Dilan Riley MD at 10/22/2020 4:04 PM CDT Associated attestation - Dilan Riley MD - 10/22/2020 4:04 PM CDT I have reviewed the above note for Carito Madison, and I agree with the documented plan by the resident/fellow/MEKHI. Dilan Riley MD 10/22/2020 documented in this encounter Nursing Notes * Katie Tai RN - 10/22/2020 1:45 PM CDT Patient received to [facility] with reports of leaking clear fluid since 0900 this morning. VS WNL. monitoring reassuring. MD evaluation. Patient discharged to home with [facility] precautions and follow up instructions. * Layla Hanson, PRO - 10/22/2020 10:55 AM CDT Abd cramping, leaking breast documented in this encounter Plan of Treatment Not on file documented as of this encounter Procedures Procedure Name Priority Date/Time Associated Diagnosis Comments PAMG-1 PROTEIN MARKER (ROM) Timed 10/22/2020 12:11 PM CDT POCT URINALYSIS DIPSTICK Routine 10/22/2020 12:09 PM CDT documented in this encounter Results * ROM Plus (IGFBP-1/AFP) (10/22/2020 12:11 PM CDT) IFG Binding Protein-1 / AFP Negative [facility] Swab 10/22/2020 12:1 1 PM CDT 10/22/2020 12:19 PM CDT us Dilan Riley MD LAB BODY FLUIDS A ND STOOLS ORDERABLES Final Result [facility] Department [place] [address] * (ABNORMAL) POCT urinalysis dipstick (10/22/2020 12:09 PM CDT) Color, Urine, POC Yellow Clarity, ur, POC Clear Clear Glucose, ur, POC Negative Negative mg/dL Bilirubin, ur, POC Negative Negative, Small, Moderate, Large Ketones, ur, POC Negative Negative Specific [place], POC 1.010 1.005 - 1.030 Blood, ur, POC Negative Negative pH, ur, POC 7.0 5.0 - 8.0 Protein, ur, POC Trace(A) Negative Urobilinogen, urine, POC 0.2 0.2 - 1.0 mg/dL Nitrite, ur, POC Negative Negative Leukocytes, ur, POC Negative Negative Lot Number [id number] Urine 10/22/2020 12:0 9 PM CDT us Maya Murillo NP POINT OF CARE TEST ORDERABLES Final Result documented in this encounter Visit Diagnoses Not on filedocumented in this encounter Care Teams Online Merchandiser Relationship Specialty [place] [address] [address] [place] [address] PCP - General 07/04/19 [place] [address] [address] [place] [address] 11/16/18 Ernie Shaw MD [address] [place] [address] [address] [place] [address] Inspector And Sorter Obstetrics and Gynecology 06/10/20 documented as of this encounter
--- OUTSIDE RECORDS SUMMARY | 2024-02-24 20:05 | XMS_ITS | Encounter Summary ---
Author Organization [facility] Healthcare Address [address] [place] [address] Care Team Providers Care Electronic Security Specialist Name Role Phone Huseyin Dangelo MD Unavailable [phone] Brian Mon MD Primary Care Provider + Ernie Shaw MD Unavailable [phone] Reason for Visit * Reason Comments Rupture of Membranes Encounter Details Date Type Department Care Team (Latest Contact Info) Description 10/27/2020 10:53 PM CDT - 10/27/2020 11:59 PM CDT Hospital Encounter [address] [address] Silas Lazo MD [address] [id number] Discharge Disposition: Discharge to home or self [...] Sign Reading Time Taken Comments Blood Pressure 120/77 10/27/2020 11:00 PM CDT Pulse 94 10/27/2020 11:00 PM CDT Temperature 36.9 ??C (98.5 ??F) 10/27/2020 11:00 PM C DT Respiratory Rate 18 10/27/2020 11:00 PM CDT Oxygen Saturation 98% 10/27/2020 11:00 PM CDT Inhaled Oxygen Concentration - - Weight - - Height - - Body Mass Index - - documented in this encounter Discharge Diagnoses Diagnosis Complete placenta previa nos or without hemorrhage, second trimester - COMPLETE PLACENTA PREVIA NOS OR WITHOUT HEMORRHAGE, SECOND TRIMESTER 26 weeks gestation of - 26 WEEKS GESTATION OF Other specified related conditions, second trimester - OTHER SPECIFIED RELATED CONDITIONS, SECOND TRIMESTER Other specified noninflammatory disorders of vagina - OTHER SPECIFIED NONINFLAMMATORY DISORDERS OF VAGINA Systemic lupus erythematosus, unspecified (HCC) - SYSTEMIC LUPUS ERYTHEMATOSUS, UNSPECIFIED Other adrenocortical insufficiency (HCC) - OTHER ADRENOCORTICAL INSUFFICIENCY Attention-deficit hyperactivity disorder, unspecified type - ATTENTION-DEFICIT HYPERACTIVITY DISORDER, UNSPECIFIED TYPE Generalized anxiety disorder - GENERALIZED ANXIETY DISORDER Diseases of the nervous system complicating , second trimester - DISEASES OF THE NERVOUS SYSTEM COMPLICATING , SECOND TRIMESTER Epilepsy, unspecified, not intractable, without status epilepticus (HCC) - EPILEPSY, UNSPECIFIED, NOT INTRACTABLE, WITHOUT STATUS EPILEPTICUS Other fpc (current) drug therapy - OTHER CUSTODIAL (CURRENT) DRUG THERAPY documented in this encounter Discharge Instructions * Attachments The following attachments cannot be sent through Care Everywhere. * at 27 to 30 Weeks (AfterCare(R) Instructions(ER/ED)) (Northern Irish) documented in this encounter Medications at Time [...] MOUTH DAILY 60 tablet 10/23/2020 1 vit no.[id number] (Classic ) 28 mg iron- 800 mcg [...] documented in this encounter H&P Notes * Silas Lazo MD - 10/27/2020 11:12 PM CDT Obstetrics H&P Chief Complaint: SROM Estimated Date of Delivery: 01/27/21 Provider: RENETTA HPI: Carito Madison is a 30 y.o. female at 26w6d gestation, dated by 1st trimester ultrasound Her is complicated by complete placenta previa, marginal cord insertion, SLE, secondary adrenal insufficiency, epilepsy, ADHD, MARIMAR She was admitted for VB 10/18-10/19. She received first dose of betamethasone for lung maturityon 10/18, but declined second dose following counseling. On 10/19, patient expressed desire to leave AMA. She was counseled extensively on recommendations for inpatient management and given strict return precautions. Presented to [facility] on 10/22 for ruled out SROM. At 10:30PM she noticed a large gush of clear fluid andimmediately started driving to hospital. On the way soaked her pants again. She is having a little bit of cramping and occasionally feels her uterus firm up. Denies vaginal bleeding. 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 Patient is . History of Abnormal Pap: None STD History: herpes and trichomoniasis Past Medical History: Diagnosis Date Anemia Anxiety Asthma Chronic diarrhea Chronic kidney disease Depression Headache, tension-type Lupus (CMS/HCC) ([facility]) PONV (postoperative nausea and vomiting) 07/13/2015 Rheumatoid arthritis (HCC) Seizures (CMS/HCC) ([facility]) Chronic hypertension: No Diabetes: No Asthma: Yes Past Surgical History: Procedure Laterality Date APPENDECTOMY [...] Smoker Quit date: 12/28/2018 Years since quittin.8 Smokeless tobacco: Never Used Vaping Use Vaping Use: Never used Substance and Sexual Activity Alcohol use: Yes Comment: occasionally Drug use: Not Currently Types: Marijuana Sexual activity: Yes Partners: Male Support System: [...] or developmental delay: No Allergies Allergen Reactions Macrobid [Nitrofurantoin Monohyd/M-Cryst] Rash [...] powder predniSONE (DELTASONE) 5 mg tablet vit no.[id number] (Classic ) 28 mg iron- 800 mcg tablet sertraline (ZOLOFT) 25 mg tablet valACYclovir (VALTREX) 500 mg tablet Review of Sys: Negative except per HPI Vitals: Temp: [98.5 ??F] 98.5 ??F Pulse: [94] 94 Resp: [18] 18 BP: (120)/(77) 120/77 Physical Exam: General: NAD, mood appropriate Cardiovascular: Regular rate and rhythm Pulmonary: nonlabored Abdomen: Gravid, non-tender Extremities: Warm and well perfused Speculum Exam: no pooling of fluid seen, Nitrazine negative, Ferning negative. No bleeding Cervix: / / visually closed on speculum exam Monitoring: Baseline: 140 bpm, Variability: Moderate, Accelerations: Present and Decelerations: rare variable decels. Reassured by good variablity Uterine Activity: irritable and patient moving Interpretation: Reactive Labs: Lab Results Component Value Date ABORH A Positive 10/18/2020 IDCOOMB Negative 10/18/2020 negative ROM+ Assessment and Plan Carito Madison is a 30 y.o. female at 26w6d who presented with leakage of fluid #r/o SROM - low concern for SROM with negative pooling, ferning, nitrazine and negative ROM+ - Reactive NST #Complete previa - No vaginal bleeding - Previously admitted to [facility] and left AMA, counseled extensively on risk of rebleeding at that time - Return precautions reviewed Dispo: Discharge home Plan discussed with Dr. Sidra Ivory MD 10/27/20 M Fellow Attestation I have discussed Carito Madison with the resident, on 10/28/2020. I have reviewed the treatment plan and recommendations. I agree with the findings and the plan of care as documented in the note. Silas Lazo MD Cosigned by Aissatou Espinoza MD at 10/28/2020 10:31 AM CDT Associated attestation - Aissatou Espinoza MD - 10/28/2020 10:31 AM CDT I have reviewed and agree with the documentation by the resident/HAND CUTTER. I did not see the patient. Aissatou Espinoza MD documented in this encounter Procedure Notes * Sherri Garcias MD - 10/28/2020 12:32 AM CDT Procedures Gestational age: 27w0d FHR Baseline: 135 Variability: moderate Reactive: Yes Decels: No Contractions: absent Comments: reactive NST I have reviewed NST and instructed RN to take off monitor Sherri Garcias MD Cosigned by Avelino Triplett MD at 10/28/2020 6:52 AM CDT Associated attestation - Avelino Triplett MD - 10/28/2020 6:52 AM CDT I have reviewed NST and agree with resident's interpretation. Reactive and appropriate for gestational age. documented in this encounter Nursing Notes * Remedios Middleton RN - 10/28/2020 1:04 AM CDT RN called lab for ROM+ result. Lab states it will be 25 to 30 minutes before it is complete. Remedios Middleton 10/28/2020 documented in this encounter Plan of Treatment Not on file documented as of this encounter Procedures Procedure Name Priority Date/Time Associated Diagnosis Comments PAMG-1 PROTEIN MARKER (ROM) STAT 10/27/2020 11:55 PM CDT documented in this encounter Results * ROM Plus (IGFBP-1/AFP) (10/27/2020 11:55 PM CDT) IFG Binding Protein-1 / AFP Negative [facility] Swab 10/27/2020 11:5 5 PM CDT 10/28/2020 12:20 AM CDT us Silas Lazo MD LAB BODY FLUIDS AND STO OLS ORDERABLES Final Result [facility] Department [place] [address] documented in this encounter Visit Diagnoses Not on filedocumented in this encounter Care Teams Electronic Security Specialist Relationship Specialty [place] [address] [address] [place] [address] PCP - General 07/04/19 [place] [address] [address] [place] [address] 11/16/18 Ernie Shaw MD [address] [place] [address] [address] [place] [address] Structural Analysis Engineer Obstetrics and Gynecology 06/10/20 documented as of this encounter
--- OUTSIDE RECORDS SUMMARY | 2024-02-24 20:05 | XMS_ITS | Encounter Summary ---
Author Organization [facility] Healthcare Address [address] [place] [address] Care Team Providers Care Lumber Straightener Name Role Phone Huseyin Dangelo MD Unavailable [phone] Brian Mon MD Primary Care Provider + Ernie Shaw MD Unavailable Reason for Visit * Reason Comments Decreased Movement Encounter Details Date Type Department Care Team (Latest Contact Info) Description 11/08/2020 10:47 AM CDT - 11/08/2020 1:28 PM CDT Hospital Encounter [address] [address] Silas Lazo MD [address] [id number] Discharge Disposition: Discharge to home or self [...] Sign Reading Time Taken Comments Blood Pressure 106/63 11/08/2020 11:05 AM CDT Pulse 94 11/08/2020 11:15 AM CDT Temperature 36.8 ??C (98.3 ??F) 11/08/2020 1 1:05 AM CDT Respiratory Rate 18 11/08/2020 11:0 5 AM CDT Oxygen Saturation 98% 11/08/2020 11: 15 AM CDT Inhaled Oxygen Concentration - - Weight 83.9 kg (184 lb 14.4 oz) 021 11:05 AM CDT Height 157.5 cm (5' 2 ) 11/08/2020 11:0 5 AM CDT Body Mass Index 33.82 11/08/2020 11:05 AM CDT documented in this encounter Discharge Diagnoses Diagnosis Decreased movements, third trimester, not applicable or unspecified - DECREASED MOVEMENTS, THIRD TRIMESTER, NOT APPLICABLE OR UNSPECIFIED Complete placenta previa nos or without [...] THE NERVOUS SYSTEM COMPLICATING , THIRD TRIMESTER Epilepsy, unspecified, not intractable, without status epilepticus (HCC) - EPILEPSY, UNSPECIFIED, NOT INTRACTABLE, WITHOUT STATUS EPILEPTICUS Maternal care for other (suspected) abnormality and damage, not applicable or unspecified - MATERNAL CARE FOR OTHER (SUSPECTED) ABNORMALITY AND DAMAGE, NOT APPLICABLE OR UNSPECIFIED Other specified diseases and conditions complicating - OTHER SPECIFIED DISEASES AND CONDITIONS COMPLICATING Systemic lupus erythematosus, unspecified (HCC) - SYSTEMIC LUPUS ERYTHEMATOSUS, UNSPECIFIED Rheumatoid arthritis, unspecified (HCC) - RHEUMATOID ARTHRITIS, UNSPECIFIED Endocrine, nutritional and metabolic diseases complicating , third trimester - ENDOCRINE, NUTRITIONAL AND METABOLIC DISEASES COMPLICATING , THIRD TRIMESTER Other adrenocortical insufficiency (HCC) - OTHER ADRENOCORTICAL INSUFFICIENCY Anemia complicating , third trimester - ANEMIA COMPLICATING , THIRD TRIMESTER Anemia, unspecified - ANEMIA, UNSPECIFIED Diseases of the respiratory system complicating , third trimester - DISEASES OF THE RESPIRATORY SYSTEM COMPLICATING , THIRD TRIMESTER Unspecified asthma, uncomplicated - UNSPECIFIED ASTHMA, UNCOMPLICATED related renal disease, third trimester - RELATED RENAL DISEASE, THIRD TRIMESTER Chronic kidney disease, unspecified - CHRONIC KIDNEY DISEASE, UNSPECIFIED Diseases of the digestive system complicating , third trimester - DISEASES OF THE DIGESTIVE SYSTEM COMPLICATING , THIRD TRIMESTER Noninfective gastroenteritis and colitis, unspecified - NONINFECTIVE GASTROENTERITIS AND COLITIS, UNSPECIFIED 28 weeks gestation of - 28 WEEKS GESTATION OF Personal history of nicotine dependence - PERSONAL HISTORY OF NICOTINE DEPENDENCE 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 You may also have trouble sleeping or contractions. DISCHARGE INSTRUCTIONS: Return to the emergency department if: ?? You develop a severe headache that does not go away. ?? You have new or increased vision changes, such as blurred or spotted vision. ?? You have new or increased swelling in your face or hands. ?? You have vaginal spotting or bleeding. ?? Your water broke or you feel warm water gushing or trickling from your vagina. Contact your healthcare provider if: ?? You have more than 5 contractions in 1 hour. ?? You notice any changes in your baby's movements. ?? You have abdominal cramps, pressure, or tightening. ?? You have a change in vaginal discharge. ?? You have chills or a fever. ?? You have vaginal itching, burning, or pain. ?? You have yellow, green, white, or foul-smelling vaginal discharge. ?? You have pain or burning when you urinate, less urine than usual, or pink or bloody urine. ?? You have questions or concerns about your condition or care. How to care for yourself at this stage of your : ?? Eat a variety of healthy foods. Healthy foods include fruits, vegetables, whole-grain breads, low-fat dairy foods, beans, lean meats, and fish. Drink liquids as directed. Ask how much liquid to drink each day and which liquids are best for you. Limit caffeine to less than 200 milligrams each day. Limit your intake of fish to 2 servings each week. Choose fish low in mercury such as canned lighttuna, shrimp, salmon, cod, or tilapia. Do not eat fish high in mercury such as swordfish, tilefish,bryce mackerel, and shark. ?? Manage heartburn by eating 4 or 5 small meals each day instead of large meals. Avoid spicy food. ?? Manage swelling by lying down and putting your feet up. ?? Take vitamins as directed. Your need for certain vitamins and minerals, such as folic acid, increases during . vitamins provide some of the extra vitamins and minerals you need. vitamins may also help to decrease the risk of certain defects. ?? Talk to your healthcare provider about exercise. Moderate exercise can help you stay fit. Your healthcare provider will help you plan an exercise program that is safe for you during . ?? Do not smoke. If you smoke, it is never too late to quit. Smoking increases your risk of a miscarriage and other health problems during your . Smoking can cause your baby to be born too early or weigh less at . Ask your healthcare provider for information if you need help quitting. ?? Do not drink alcohol. Alcohol passes from your body to your baby through the placenta. It can affect your baby's brain development and cause alcohol syndrome (FAS). FAS is a group of conditions that causes mental, behavior, and growth problems. ?? Talk to your healthcare provider before you take any medicines. Many medicines may harm your baby if you take them when you are . Do not take any medicines, vitamins, herbs, or supplementswithout first talking to your healthcare provider. Never use illegal or street drugs (such as marijuana or cocaine) while you are . Safety tips during : ?? Avoid hot tubs and saunas. Do not use a hot tub or sauna while you are , especially during your first trimester. Hot tubs and saunas may raise your baby's temperature and increase the riskof defects. ?? Avoid toxoplasmosis. This is an infection caused by eating raw meat or being around infected catfeces. It can cause defects, miscarriages, and other problems. Wash your hands after you touch raw meat. Make sure any meat is well- cooked before you eat it. Avoid raw eggs and unpasteurized milk. Use gloves or ask someone else to clean your cat's litter box while you are . Changes that are happening with your baby: By 30 weeks, your baby may weigh more than 3 pounds. Your baby may be about 11 inches long from the top of the head to the rump (baby's bottom). Your baby'seyes open and close now. Your baby's kicks and movements are more forceful at this time. What you need to know about care: Your healthcare provider will check your blood pressure and weight. You may also need the following: ?? Blood tests may be done to check for anemia or blood type. ?? A urine test may also be done to check for sugar and protein. These can be signs of gestational diabetes or infection. Protein in your urine may also be a sign of preeclampsia. Preeclampsia is a condition that can develop during week 20 or later of your . It causes high blood pressure, and it can cause problems with your kidneys and other organs. ?? A Tdap vaccine and flu vaccine may be recommended by your healthcare provider. ?? A gestational diabetes screen will be done using an oral glucose tolerance test (OGTT). An OGTT starts with a blood sugar level check after you have not eaten for 8 hours. You are then given a glucose drink. Your blood sugar level is checked after 1 hour, 2 hours, and sometimes 3 hours. Healthcare providers look at how much your blood sugar level increases from the first check. ?? Fundal height is a measurement of your uterus to check your baby's growth. This number is usually the same as the number of weeks that you have been . Your healthcare provider may also check your baby's position. ?? Your baby's heart rate will be checked. ?? 2017 [employer] Information is for End User's use only and may not be sold, redistributed or otherwise used for commercial purposes. All illustrations and images included in CareNotes?? are the copyrighted property of [employer] or [employer]. The above information is an special education educational assistant only. It is not intended as medical [...] A DAY 90 tablet 2 02/16/2020 1 hydrOXYchloroQUINE (PLAQUENIL) 200 mg tablet Take [...] MOUTH DAILY 60 tablet 10/23/2020 1 vit no.912-qlih-[id number] (Classic ) 28 mg iron- 800 mcg [...] documented in this encounter Progress Notes * Julia Cobb RN - 11/08/2020 1:17 PM CDT Carito presented to [facility] with no movement since Sunday. tracing reactive with intermittent variable, bedside US completed. Pt took monitoring off self at 1300 and immediately ready to d/c home. Dr. Bird to come by and see pt prior to d/c. Paperwork understood, parking pass given, no further questions. Stable for d/c home. documented in this encounter H&P Notes * Shaye Cabrera NP - 11/08/2020 12:05 PM CDT Images from the original note were not included. Obstetrics H&P Chief Complaint: decreased FM Estimated Date of Delivery: 01/27/21 Provider: RENETTA HPI: Carito Madison is a 30 y.o. female at 28w4d gestation, dated by 1st trimester ultrasound. Pt c/o decreased FM x 2 days. Denies VB or LOF. Reports occ cramping, at her baseline, no change today. 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 Patient [...] mg (38 mg of elemental iron) tablet hydrOXYchloroQUINE (PLAQUENIL) 200 mg tablet multivitamin capsule omeprazole (PriLOSEC) 20 mg capsule ondansetron ODT (ZOFRAN-ODT) 8 mg disintegrating tablet polyethylene glycol (MIRALAX) 17 gram/dose powder predniSONE (DELTASONE) 5 mg tablet vit no.703-[id number]-kyxia (Classic ) 28 mg iron- 800 mcg tablet sertraline (ZOLOFT) 25 mg tablet valACYclovir (VALTREX) 500 mg tablet fluconazole (DIFLUCAN) 150 mg tablet nitrofurantoin monohydrate (MACROBID) 100 mg capsule Review of Sys: Negative except per HPI Vitals: Temp: [98.3 ??F] 98.3 ??F Pulse: [93-104] 94 Resp: [18] 18 BP: (106)/(63) 106/63 Labs Review: No results found for this or any previous visit (from the past 24 hour(s)). Physical Exam: General: NAD, mood appropriate Cardiovascular: Regular rate and rhythm Pulmonary: Clear to ausculation bilaterally Abdomen: Gravid, non-tender Extremities: Warm and well perfused Speculum Exam: deferred Cervix: deferred Monitoring: Baseline: 140 bpm, Variability: Moderate, Accelerations: Present and Decelerations: Yes, occasional variable appropriate for gestational age Uterine Activity: rare Interpretation: Reactive Bedside Ultrasound: Transverse presentation BRI 13.72cm DVP 4.90 cm Labs: Lab Results Component Value Date ABORH A Positive 10/18/2020 IDCOOMB Negative 10/18/2020 Assessment and Plan Carito Madison is a 30 y.o. female at 28w4d who presented with decreased movement #Decreased movement/FWB- 140, reactive, reassuring prolonged EFM, occasional variable decel appropriate for gestational age. BRI on bedside ultrasound within normal limits. Strict return precautions provided Plan discussed with Dr. Bird Dispo-D/C to home with f/u as scheduled Jacqui Mcrae NP 11/08/20 Cosigned by Iris Bird MD at 11/08/2020 5:51 PM CDT Associated attIris Colin MD - 11/08/2020 5:51 PM CDT I have reviewed the NST and agree with documentation above. Iris Bird MD documented in this encounter Procedure Notes * Jacqui Mcrae NP - 11/08/2020 1:28 PM CDT Procedures Electronic Monitoring/Non-Stress Test Date: 11/08/20 Time: 8925-9931 Carito Madison is a 30 y.o. female at 28w4d gestation FHR Baseline: 140 Variability: moderate Accelerations: present Decelerations: occasional variable appropriate for gestational age Contractions: rare Reactive: Yes Comments: overall reassuring with normal BRI I have reviewed NST and instructed RN to take off monitor KATHRIN Fang Cosigned by Iris Bird MD at 11/08/2020 5:50 PM CDT Associated attsupaation - Iris Bird MD - 11/08/2020 5:50 PM CDT I have reviewed the NST and agree with documentation above. Iris Bird MD documented in this encounter Plan of Treatment Not on file documented as of this encounter Visit Diagnoses Not on filedocumented in this encounter Discontinued Medications Medication Sig Discontinue Reason Start Date End Da te fluconazole (DIFLUCAN) 150 mg tablet Therapy completed 10/01/2020 11/08/2020 nitrofurantoin monohydrate (MACROBID) 100 mg capsule Take 1 capsule (100 mg total) by mouth 2 (two) times a day Therapy completed 09/15/2020 11/08/2020 documented as of this encounter Care Teams Lumber Straightener Relationship Specialty [place] [address] [place] [address] PCP - General 07/04/19 [place] [address] [address] [facility] [place] [address] 11/16/18 Ernie Shaw MD [address] [place] [address] [address] [place] [address] Auricular Therapist Obstetrics and Gynecology 06/10/20 documented as of this encounter
--- OUTSIDE RECORDS SUMMARY | 2024-02-24 20:05 | XMS_ITS | Encounter Summary ---
Author Organization [facility] [email or web address] [facility] Address [address] [place] [address] Phone Care Team Providers Care Sawmill Moulder Operator Name Role Phone Huseyin Dangelo MD Unavailable [phone] Brian Mon MD Primary Care Provider + Ernie Shaw MD Unavailable [phone] Encounter Details Date Type Department Care Team (Late st Contact Info) Description 11/04/2020 Telephone [facility] Maternal- Medicine [facility] [address] [facility] [address] [place] [address] Katharina Yates, PRO Social History [...] Telephone Encounter - Katharina Yates RN - 11/04/2020 1:53 PM CDT VM received from pt requesting call back - no other details. Attempted to call back and received voicemail. Instructed pt to call back or send [employer] message if she still needs to get in contact with MFM. documented in this encounter Plan of Treatment Not on file documented as of this encounter Visit Diagnoses Not on filedocumented in this encounter Care Teams Sawmill Moulder Operator Relationship Specialty [place] [address] [place] [address] PCP - General 07/04/19 [place] [address] [address] [place] [address] 11/16/18 Ernie Shaw MD [address] [place] [address] [address] [place] [address] Fruit Bar Maker Obstetrics and Gynecology 06/10/20 documented as of this encounter
--- OUTSIDE RECORDS SUMMARY | 2024-02-24 20:05 | XMS_ITS | Encounter Summary ---
Author Organization [facility] Healthcare Address [address] [place] [address] Care Team Providers Care Director Customer Name Role Phone Huseyin Dangelo MD Unavailable [phone] Brian Mon MD Primary Care Provider + Ernie Shaw MD Unavailable [phone] Reason for Referral * Diagnostic Imaging (Routine) - Closed Specialty Diagnoses / Procedures Referred By Contac t Referred To Contact Diagnoses Lupus Procedures US Ob Follow Up Kathia Rodríguez NP [address] [facility] [phone] [place] [address] Phone: tel: fax: [facility] (All Locations) Referral ID Status Reason Start Date Expiration Date Visits Re quested Visits Authorized [id number] Closed 10/07/2020 02/25/2021 1 12 Reason for Visit * Diagnostic Imaging (Routine) - Closed Specialty Diagnoses / Procedures Referred By Contac t Referred To Contact Diagnoses Lupus Procedures US Ob Follow Up Kathia Rodríguez NP [address] [facility] [phone] [place] [address] Phone: tel: fax: [facility] (All Locations) Referral ID Status Reason Start Date Expiration Date Visits Re quested Visits Authorized [id number] Closed 10/07/2020 02/25/2021 1 12 Encounter Details Date Type Department Care Team (Latest Contact Info) Description 10/26/2020 11:57 AM CDT - 10/26/2020 11:59 PM CDT Hospital Encounter [facility] - Ultrasound [address] [facility], 7th Floor, [address] [place] [facility] [place] [address] Francisca Poon MD [address] [facility] [place] [address] Kathia Rodríguez, KINGA [address] [facility] [phone] [place] [address] Lupus ([facility]/HCC) ([facility]) Discharge Disposition: Discharge to home or self [...] MOUTH DAILY 60 tablet 10/23/2020 1 vit no.[id number] (Classic ) 28 mg iron- 800 mcg [...] UP Schedule Routine, Read Routine (OP Routine) 10/26/2020 11:57 AM CDT Lupus (CMS/HCC) (HCC) documented in this encounter Results * US Ob Follow Up (10/26/2020 11:57 AM CDT) Fetus# Fetus1 VIEWPOINT Placenta Details anterior, Previa-yes VIEWPOINT Estimated Weight 1,040 g&grams VIEWPOINT Presentation Transverse Lie VIEWPOINT Anatomical Region Laterality Modality Abdomen N/A Ultrasound 10/26/2020 12:3 6 PM CDT us Kathia Rodríguez AUTOMATION AND CONTROL ENGINEER IMG OB US PROCEDURE S Final Result documented in this encounter Visit Diagnoses Diagnosis Lupus Systemic lupus erythematosus documented in this encounter Care Teams Director Customer Relationship Specialty [place] [address] [address] [place] [address] PCP - General 07/04/19 [place] [address] [address] [place] [address] 11/16/18 Ernie Shaw MD [address] [facility] [address] [place] [address] Drying Supervisor Obstetrics and Gynecology 06/10/20 documented as of this encounter
--- OUTSIDE RECORDS SUMMARY | 2024-02-24 20:05 | XMS_ITS | Encounter Summary ---
Author Organization [facility] [employer] [facility] Address [address] [place] [address] Phone Care Team Providers Care Telephone Plant Power Operator Name Role Phone Huseyin Dangelo MD Unavailable [phone] Brian Mon MD Primary Care Provider + Ernie Shaw MD Unavailable [phone] Reason for Visit * Reason Onset Date Comments [facility] visit 10/22/2020 Encounter Details Date Type Department Care Team (Late st Contact Info) Description 10/22/2020 Telephone [facility] Maternal- Medicine [address] [facility] Health 7th Floor [address] [place] [address] Anh Marin, PRO [facility] visit Social History Tobacco Use Types Packs/Day Years [...] Encounter - Anh Marin RN - 10/22/2020 10:18 AM CDT Pt. Calling. Questioning if she can come here for visit this afternoon rather than the [facility]. Pt. Aware she would need to go to the [facility] due to the nature of her complaint to r/o ROM. Pt. Verbalized understanding. documented in this encounter Plan of Treatment Not on file documented as of this encounter Visit Diagnoses Not on filedocumented in this encounter Care Teams Telephone Plant Power Operator Relationship Specialty [place] [address] [address] [place] [address] PCP - General 07/04/19 [place] [address] [address] [place] [address] 11/16/18 Ernie Shaw MD [address] [place] [address] [address] [facility] [place] [address] Transformation Consultant Obstetrics and Gynecology 06/10/20 documented as of this encounter
--- OUTSIDE RECORDS SUMMARY | 2024-02-24 20:05 | XMS_ITS | Encounter Summary ---
Author Organization [facility] Healthcare Address [address] [place] [address] Care Team Providers Care Track Liner Operator Name Role Phone Huseyin Dangelo MD Unavailable [phone] Brian Mon MD Primary Care Provider + Ernie Shaw MD Unavailable [phone] Reason for Visit * Reason Comments Decreased Movement Encounter Details Date Type Department Care Team (Latest Contact Info) Description 11/09/2020 10:38 AM CDT - 11/09/2020 12:45 PM CDT Hospital Encounter [address] [address] Silas Lazo MD [address] [id number] Discharge Disposition: Discharge to home or self [...] Sign Reading Time Taken Comments Blood Pressure 107/70 11/09/2020 12:02 PM CDT Pulse 90 11/09/2020 12:02 PM CDT Temperature 36.8 ??C (98.3 ??F) 11/09/2020 10:45 AM C DT Respiratory Rate 18 11/09/2020 10:45 AM CDT Oxygen Saturation 97% 11/09/2020 11:26 AM CDT Inhaled Oxygen Concentration - - Weight 83.5 kg (184 lb) 11/09/2020 10:45 AM CDT Height 160 cm (5' 3 ) 11/09/2020 10:45 AM CDT Body Mass Index 32.59 11/09/2020 10:45 AM CDT documented in this encounter Discharge Diagnoses Diagnosis Decreased movements, third trimester, not applicable or unspecified - DECREASED MOVEMENTS, THIRD TRIMESTER, NOT APPLICABLE OR UNSPECIFIED Other specified related conditions, third trimester - OTHER SPECIFIED RELATED CONDITIONS, THIRD TRIMESTER Nausea - NAUSEA Nausea alone Dizziness and giddiness - DIZZINESS AND GIDDINESS Complete placenta previa nos or without hemorrhage, third trimester - COMPLETE PLACENTA PREVIA NOS OR WITHOUT HEMORRHAGE, THIRD TRIMESTER Other mental disorders complicating , third trimester - OTHER MENTAL DISORDERS COMPLICATING , THIRD TRIMESTER Anxiety disorder, unspecified - ANXIETY DISORDER, UNSPECIFIED Major depressive disorder, single episode, unspecified - MAJOR DEPRESSIVE DISORDER, SINGLE EPISODE, UNSPECIFIED Attention-deficit hyperactivity disorder, unspecified type - ATTENTION-DEFICIT HYPERACTIVITY DISORDER, UNSPECIFIED TYPE Other viral diseases complicating , third trimester - OTHER VIRAL DISEASES COMPLICATING , THIRD TRIMESTER Herpesviral infection, unspecified - HERPESVIRAL INFECTION, UNSPECIFIED Diseases of the respiratory system complicating , third trimester - DISEASES OF THE RESPIRATORY SYSTEM COMPLICATING , THIRD TRIMESTER Unspecified asthma, uncomplicated - UNSPECIFIED ASTHMA, UNCOMPLICATED Endocrine, nutritional and metabolic diseases complicating , third trimester - ENDOCRINE, NUTRITIONAL AND METABOLIC DISEASES COMPLICATING , THIRD TRIMESTER Unspecified adrenocortical insufficiency (HCC) - UNSPECIFIED ADRENOCORTICAL INSUFFICIENCY Diseases of the nervous system complicating , third trimester - DISEASES OF THE NERVOUS SYSTEM COMPLICATING , THIRD TRIMESTER Epilepsy, unspecified, not intractable, without status epilepticus (HCC) - EPILEPSY, UNSPECIFIED, NOT INTRACTABLE, WITHOUT STATUS EPILEPTICUS related renal disease, third trimester - RELATED RENAL DISEASE, THIRD TRIMESTER Chronic kidney disease, unspecified - CHRONIC KIDNEY DISEASE, UNSPECIFIED Other specified diseases and conditions complicating - OTHER SPECIFIED DISEASES AND CONDITIONS COMPLICATING Rheumatoid arthritis, unspecified (HCC) - RHEUMATOID ARTHRITIS, UNSPECIFIED Systemic lupus erythematosus, unspecified (HCC) - SYSTEMIC LUPUS ERYTHEMATOSUS, UNSPECIFIED Diseases of the digestive system complicating , third trimester - DISEASES OF THE DIGESTIVE SYSTEM COMPLICATING , THIRD TRIMESTER Noninfective gastroenteritis and colitis, unspecified - NONINFECTIVE GASTROENTERITIS AND COLITIS, UNSPECIFIED 28 weeks gestation of - 28 WEEKS GESTATION OF Other willow machine operator (current) drug therapy - OTHER FDC (CURRENT) DRUG THERAPY Personal history of nicotine dependence - PERSONAL HISTORY OF NICOTINE DEPENDENCE 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 female at 28w5d gestation, dated by 1st trimester ultrasound Her is complicated by placenta previa, marginal cord insert, polyhydraminos, anxiety (zolfot 25mg), adrenal insufficiency, epilepsy, ADHD, Lupus, HSV, asthma (albuterol prn) Patient presents to [facility] for complaint of decreased movement. She was in [facility] yesterday for same issue. Feels like she has decreased movement at home, but when she comes here the baby movesa lot. Also notes fatigue, nausea and dizziness. Was taking iron and zofran before, but had major constipation issues, so she stopped taking the iron. Last CBC was 10/19 - Hgb 10.3/HCT 30.9. Denies pain, VB, or LOF. Reports feeling baby moving now. 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 Patient is . History of Abnormal Pap: no, last pap unsatisfactory STD History: herpes Past Medical History: Diagnosis Date ??? Anemia ??? Anxiety ??? Asthma ??? Chronic diarrhea ??? Chronic kidney disease ??? Depression ??? Headache, tension-type ??? Lupus (CMS/HCC) (HCC) ??? PONV (postoperative nausea and vomiting) ??? 07/13/2015 ??? Rheumatoid arthritis (HCC) ??? Seizures (CMS/HCC) (HCC) Chronic hypertension: No Diabetes: No Asthma: Yes, albuterol prn Past Surgical History: Procedure Laterality Date ??? [...] powder predniSONE (DELTASONE) 5 mg tablet vit no.[id number] (Classic ) 28 mg iron- 800 mcg tablet sertraline (ZOLOFT) 25 mg tablet valACYclovir (VALTREX) 500 mg tablet Review of Sys: Negative except per HPI Vitals: Temp: [98.3 ??F] 98.3 ??F Pulse: [90-116] 90 Resp: [18] 18 BP: (107-118)/(70-75) 107/70 Orthostatic BPs: Lying BP 107/70 HR 90 Sitting BP 112/66 HR 94 Standing BP 104/59 HR 93 Lab Review: Recent Results (from the past 24 hour(s)) POCT glucose Collection Time: 11/09/20 11:23 AM Result Value Ref Range Glucose, POC 88 70 - 199 mg/dL POCT hemoglobin Collection Time: 11/09/20 11:25 AM Result Value Ref Range Hemoglobin POC 9.3 (A) 12.1 - 15.1 g/dL reviewed the laboratory result(s) Physical Exam: General: NAD, mood appropriate Cardiovascular: Regular rate and rhythm Pulmonary: Clear to ausculation bilaterally Abdomen: Gravid, non-tender Extremities: Warm and well perfused Speculum Exam: deferred Cervix: / / deferred Monitoring: Baseline: 140 bpm, Variability: Moderate, Accelerations: Present and Decelerations: None Uterine Activity: No contractions seen on toco Interpretation: Reactive and reassuring tracing Ultrasound: Declined US today Anterior placenta Previa: Yes Estimated Weight: 1040g (58%) by US, date performed 10/26/20 Labs: Lab Results Component Value Date ABORH A Positive 10/18/2020 IDCOOMB Negative 10/18/2020 Patient Active Problem List Diagnosis ??? Laceration [...] ??? Microcytic anemia ??? Joint pain ??? Anti-ASSISTANT BUSINESS MANAGER antibodies present ??? Adrenal insufficiency (CMS/HCC) (HCC) [...] third trimester, not applicable or unspecified fetus Assessment and Plan Carito Madison is a 30 y.o. female at 28w5d who presented with decreased movement. #decreased FM/FWB reactive NST Reports good movement now Declined US today as had BRI/DVP yesterday #Nausea/dizziness POCT hgb 9.3 POCT gluocse 88 Orthostatic BPs unremarkable zofran 4mg ODT given Recommend restarting oral Fe (can consider iron infusion) Patient left unit before she could be signed out with attending. Did not want to stay any longer and left the unit. Has appointment scheduled Sunday. Return precautions given. Discussed with Dr. Bird. KATHRIN Moore-CARLOS 11/09/20 Cosigned by Iris Bird MD at 11/09/2020 5:31 PM CDT Associated attestation - Iris Bird MD - 11/09/2020 5:31 PM CDT I agree with the findings and plan of care. documented in this encounter Procedure Notes * Avelino Triplett MD - 11/09/2020 12:43 PM CDT NST Note 30 y.o. at 28w5d FHR Baseline: 140 Variability: moderate Accelerations: present Decelerations: absent Contractions: absent Reactive: Yes I have reviewed the NST. Avelino Triplett MD * Maya Murillo NP - 11/09/2020 11:38 AM CDT Procedures Carito Madison is a 30 y.o. female at 28w5d weeks gestation with Estimated Date of Delivery: 01/27/21. She presented with decreased movement and nausea/dizziness/fatigue Time on the monitor: [id number] FHR Baseline: 140 Variability: moderate Accelerations: present Decelerations: absent Contractions: absent Reactive: Yes and reassuring tracing I have reviewed the NST: reactive and reassuring tracing. I have instructed the RN to take the patient off the monitor. POPEYE Moore 11/09/20 Cosigned by Avelino Triplett MD at 11/09/2020 12:48 PM CDT documented in this encounter Plan of Treatment Not on file documented as of this encounter Procedures Procedure Name Priority Date/Time Associated Diagnosis Comments POCT HEMOGLOBIN Routine 11/09/2020 11:25 AM CDT POCT GLUCOSE DEVICE Routine 11/09/2020 1 1:23 AM CDT documented in this encounter Results * (ABNORMAL) POCT hemoglobin (11/09/2020 11:25 AM CDT) Hemoglobin POC 9.3(A) 12.1 - 15.1 g/dL Capillary blood 11/09/2020 1 1:25 AM CDT Maya Murillo NP POINT OF CARE TEST ORDERABLES Final Result * POCT glucose (11/09/2020 11:23 AM CDT) Glucose, POC 88 70 - 199 mg/dL [facility] Blood 11/09/2020 11:2 3 AM CDT 11/09/2020 11:23 AM CDT Silas Lazo MD LAB POCT ORDERABLES - D EVICE Final Result [facility] Department [place] [address] documented in this encounter Visit Diagnoses Not on filedocumented in this encounter Administered Medications Inactive Administered Medications - up to 3 most recent administrations Medication Order MAR Action Action Date Dose Rate Site ondansetron ODT (ZOFRAN-ODT) disintegrating tablet 4 mg 4 mg, oral, Once, On Sun11/09/20 at 1145, For 1 dose Given 11/09/2020 11:19 AM CDT 4 mg documented in this encounter Active and Recently Administered Medications Times are shown in CDT. Scheduled Medication Order 11/07/2020 11/08/2020 11/09/2020 ondansetron ODT (ZOFRAN-ODT) disintegrating tablet 4 mg (COMPLETED) 4 mg, oral, Once, On Sun11/09/20 at 1145, For 1 dose 1119 (Given - Provid er: Katie A. Statzel, RN) documented in this encounter Orders Medications Ordered That Omer ht Not Have Been Administered Count Last Ordered Date First Ordered Date ondansetron ODT (ZOFRAN-ODT) disintegrating tablet 4 mg 1 11/09/2020 documented in this encounter Care Teams Track Liner Operator Relationship Specialty [place] [address] [address] [place] [address] PCP - General 07/04/19 [place] [address] [address] [place] [address] 11/16/18 Ernie Shaw MD [address] [place] [address] [address] [place] [address] Automotive Hardware Engineer Obstetrics and Gynecology 06/10/20 documented as of this encounter
--- OUTSIDE RECORDS SUMMARY | 2024-02-24 20:05 | XMS_ITS | Encounter Summary ---
Author Organization [facility] [employer] [facility] Address [address] [place] [address] Phone Care Team Providers Care Manager Trainee Name Role Phone Huseyin Dangelo MD Unavailable [phone] Brian Mon MD Primary Care Provider + Ernie Shaw MD Unavailable [phone] Encounter Details Date Type Department Care Team (Late st Contact Info) Description 11/10/2020 Orders Only [facility] Maternal- Medicine [address] [facility] Outpatient Health 7th Floor [address] [place] [address] Anh Marin, PRO Iron deficiency Social History Tobacco Use Types Packs/Day Years [...] Refills Last Filled Start Date End Date ferrous gluconate (ferrous gluconate) 324 mg (37.5 mg of elemental iron) tabletIndications: Iron deficiency Take 1 tablet (324 mg total) by mouth 3 (three) times a day 90 tablet 2 11/10/2020 01/13/2021 documented in this encounter Progress Notes * Anh Marin, PRO - 11/10/2020 1:50 PM CDT Pt. Calling, states she is concerned that her hgb was 9.3 yesterday. States she is very tired. Pt. Questioning wether or not she needs iron infusion. RN discussed used of oral iron ordered in her chart. Pt. States she has been out of Fe but would like to continue taking it. RN sent refill and pt. Will continue with this plan and call back if s/s continue or worsen. Pt. Verbalized understanding. documented in this encounter Plan of Treatment Not on file documented as of this encounter Visit Diagnoses Diagnosis Iron deficiency Disorders of iron metabolism documented in this encounter Discontinued Medications Medication Sig Discontinue Reason Start Date End Da te ferrous gluconate 324 mg (38 mg of elemental iron) tabletIndications:Iron deficiency TAKE 1 TABLET BY MOUTH THREE TIMES A DAY Reorder 02/16/2020 11/10/2020 documented as of this encounter Care Teams Manager Trainee Relationship Specialty [place] [address] [address] [place] [address] PCP - General 07/04/19 [place] [address] [address] [place] [address] 11/16/18 Ernie Shaw MD [address] [place] [address] [address] [place] [address] Accountant Manager Obstetrics and Gynecology 06/10/20 documented as of this encounter
--- OUTSIDE RECORDS SUMMARY | 2024-02-24 20:05 | XMS_ITS | Encounter Summary ---
Author Organization [facility] Healthcare Address [address] [place] [address] Care Team Providers Care Catcher Filter Tip Name Role Phone Huseyin Dangelo MD Unavailable [phone] Brian Mon MD Primary Care Provider + Ernie Shaw MD Unavailable [phone] Encounter Details Date Type Department Care Team (Late st Contact Info) Description 10/26/2020 1:50 PM CDT Lab [facility] Outpatient Health [address] [place] [address] Health [place], [place] [id number] Supervision of high-risk , unspecified trimester Social [...] Procedure Name Priority Date/Time Associated Diagnosis Comments GTT 50GM 1HR GESTATIONAL SCREEN Routine 10/26/2020 2:51 PM CDT Supervision of high-risk , unspecified trimester documented in this encounter Results * Glucose tolerance testing 50 gram gestational screen (10/26/2020 2:51 PM CDT) GTT 50g gest screen 120 <=140 mg/dL [facility] Comment: Interpretive Data Used for suspected gestational [...] 10/26/2020 3:33 PM CDT us Kathia Rodríguez JUVENILE DETENTION OFFICER LAB BLOOD ORDERABLE S Final Result [facility] Department [place] [address] documented in this encounter Visit Diagnoses Diagnosis Supervision of high-risk , unspecified trimester documented in this encounter Care Teams Catcher Filter Tip Relationship Specialty [place] [address] [address] [place] [address] PCP - General 07/04/19 [place] [address] [address] [place] [address] 11/16/18 Ernie Shaw MD [address] [facility] [address] [place] [address] Brokerage Purchase And Sale Clerk Obstetrics and Gynecology 06/10/20 documented as of this encounter
--- OUTSIDE RECORDS SUMMARY | 2024-02-24 20:06 | XMS_ITS | Encounter Summary ---
Author Organization [facility] Healthcare Address [address] [place] [address] Care Team Providers Care Conditioning Yard Supervisor Name Role Phone Huseyin Dangelo MD Unavailable [phone] Brian Mon MD Primary Care Provider + Ernie Shaw MD Unavailable [phone] Reason for Visit * Reason Onset Date Comments Incoming Call 09/24/2020 Encounter Details Date Type Department Care Team (Late st Contact Info) Description 09/24/2020 Nurse Triage [address] [address] Saúl Lo, PRO Social History Tobacco Use Types Packs/Day Years Used Date Smoking Tobacco: Former Cigarettes Q uit: 12/28/2018 Smokeless Tobacco: Never Alcohol Use Standard Drinks/Week Comments Yes 0 (1 standard drink = 0.6 oz pur e alcohol) occasionally AUDIT-C Answer Date Recorded Q1: How often do you have a drink containing alc ohol? Never 09/24/2020 Average Number of Drinks Not on file 021 Q3: How often do you have si x or more drinks on one occasion? Never 09/24/2020 PHQ-2 Answer Date Recorded PHQ-2 Total Score [...] Telephone Encounter - Saúl Lo RN - 09/24/2020 6:04 PM CDT Pt called with c/o having a lot of lower abd pain. States pain is constant. Rates pain at a 5 on pain scale. Says that it feels like my uterus is falling out of my vagina . Also c/o lower abd pressure. Has been having pain now for the past 5 days. Had labs drawn today by her PCP. Thinks that shemay have a UTI. Pt instructed to come in to the [facility] now to be evaluated. Pt verbalizes understanding and states ok she will. Reason for Disposition ??? MODERATE-SEVERE abdominal pain (e.g., interferes with normal activities, awakens from sleep) Protocols used: - ABDOMINAL PAIN GREATER THAN 20 WEEKS [id number] documented in this encounter Plan of Treatment Not on file documented as of this encounter Visit Diagnoses Not on filedocumented in this encounter Care Teams Conditioning Yard Supervisor Relationship Specialty [place] [address] [address] [place] [address] PCP - General 07/04/19 [place] [address] [address] [place] [address] 11/16/18 Ernie Shaw MD [address] [place] [address] [address] [place] [address] Pier Master Assistant Obstetrics and Gynecology 06/10/20 documented as of this encounter
--- OUTSIDE RECORDS SUMMARY | 2024-02-24 20:06 | XMS_ITS | Encounter Summary ---
Author Organization [facility] Address [address] [place] [address] Phone Care Team Providers Care Web Pressman Name Role Phone Huseyin Dangelo MD Unavailable [phone] Brian Mon MD Primary Care Provider + Ernie Shaw MD Unavailable [phone] Encounter Details Date Type Department Care Team (Late st Contact Info) Description 09/23/2020 Telephone [facility] Rheumatology [address] [facility] Advanced Medicine 5th [place] [address] [place] [address] Lee Morton MD [address] [facility] [id number] [place] [address] Social History Tobacco Use Types Packs/Day Years [...] Telephone Encounter - Nallely Griffiths CMA - 09/23/2020 1:16 PM CDT S/w pt and gave Dr Delarosa instructions. Pt will hold medication and follow up in office Wednesday 09/27. Ptstated she went to the ER due to hives and symptoms worsening. Dr Delarosa will discuss further in office. * Telephone Encounter - Carolina Delarosa MD - 09/23/2020 1:09 PM CDT Dustin Howard * Telephone Encounter - Carolina Delarosa MD - 09/23/2020 1:08 PM CDT Can you let the patient know we will discuss this when she comes in 09/27. In the meanwhile if she feels the AZA not suiting her she can hold it for 4 days till her apt * Telephone Encounter - Lee Morton MD - 09/23/2020 12:12 AM CDT Rheumatology After Hours Telephone Note: Spoke with Ms. Madison who called initially regarding concerns about her AZA which she recently started taking. Reports that she took first dose yesterday and noted a burning sensation in her nostril.Took her dose tonight and began to notice hives on her arm. No SOB or wheezing. She took two benadryl and symptoms seem controlled. told her he thought the medication name (azathioprine) sounded familiar and feels as though she has reported allergy to it. Noting that her SLE symptoms seem to be starting to flare up, particularly noting pain that is worse in her back, which she states she has experienced before. She also states that she is beginning tonote multiple sores in her mouth with bleeding, including on the roof of her mouth, which she has never experienced before. Patient was previously on Benlysta and HCQ but given that she is currently , Benlysta was discontinued and patient was started on AZA. She has a follow-up appointment with Dr. Delarosa scheduled for 09/27, but in the meantime, I will reach out to Dr. Delarosa and her staff regarding further guidance on her SLE management. I informed the patientthat since her next AZA dose would not be due until tomorrow night, we can wait to see what Dr. Delarosawould like to do regarding this medication in the morning. I also suggested an option would be to premedicate with benadryl prior to taking the AZA, but another option would be to hold off until her appointment on 09/27. Regarding her symptoms flaring up, Dr. Delarosa would likely want to evaluate her at the visit on 09/27 and obtain some labs to determine the plan. Instructed patient to seek immediate care if she were to develop worsening respiratory symptoms. Patient agreed with plan and voiced understanding. Lee Morton MD documented in this encounter Plan of Treatment Not on file documented as of this encounter Visit Diagnoses Not on filedocumented in this encounter Care Teams Web Pressman Relationship Specialty [place] [address] [address] [place] [address] PCP - General 07/04/19 [place] [address] [address] [place] [address] 11/16/18 Ernie Shaw MD [address] [place] [address] DR [facility] [place] [address] Surgical Scheduler Obstetrics and Gynecology 06/10/20 documented as of this encounter
--- OUTSIDE RECORDS SUMMARY | 2024-02-24 20:06 | XMS_ITS | Encounter Summary ---
Author Organization [facility] Healthcare Address [address] [place] [address] Care Team Providers Care Va Underwriter Name Role Phone Huseyin Dangelo MD Unavailable [phone] Brian Mon MD Primary Care Provider + Ernie Shaw MD Unavailable [phone] Reason for Visit * Reason Onset Date Comments Incoming Call 09/29/2020 Medicatio n Request Encounter Details Date Type Department Care Team (Late st Contact Info) Description 09/29/[address] [address] Mariza Mccoy RN Incoming Call (Medication Request) Social History Tobacco Use Types Packs/Day Years [...] Progress Notes * Mariza Mccoy RN - 09/29/2020 8:10 PM CDT Pt called stating that she was seen in the [facility] earlier in the day and diagnosed with a yeast infection. Pt was given a Diflucan pill, but is requesting Nystatin be sent to the pharmacy for use as theOTC cream is not keeping her comfortable. Rachid Ivey NP notified of patient request and agrees to send medication to pharmacy. Pt notified, and denies any other needs or concerns at this time. documented in this encounter Plan of Treatment Not on file documented as of this encounter Visit Diagnoses Not on filedocumented in this encounter Care Teams Va Underwriter Relationship Specialty [place] [address] [address] [place] [address] PCP - General 07/04/19 [place] [address] [address] [place] [address] 11/16/18 Ernie Shaw MD [address] [place] [address] [address] [facility] [place] [address] Hop Picker Obstetrics and Gynecology 06/10/20 documented as of this encounter
--- OUTSIDE RECORDS SUMMARY | 2024-02-24 20:06 | XMS_ITS | Encounter Summary ---
Author Organization [facility] Healthcare Address [address] [place] [address] Care Team Providers Care Hatchery Manager Name Role Phone Huseyin Dangelo MD Unavailable [phone] Brian Mon MD Primary Care Provider + Ernie Shaw MD Unavailable [phone] Reason for Visit * Reason Onset Date Comments Outgoing Call 09/30/2020 post [facility] visit f/u Encounter Details Date Type Department Care Team (Late st Contact Info) Description 09/30/[address] [address] Amy Rodriges RN Outgoing Call (post [facility] visit f/u) Social History Tobacco Use [...] Telephone Encounter - Amy Rodriges RN - 09/30/2020 10:48 AM CDT Contacted patient for post [facility] Visit f/u. Patient states she is doing well today. Denies any further spotting or bleeding. Denies caio vaginal dc.or LOF. States does feel FM. Patient understands discharge precautions and know to come in if any VB occurs. No further questions or needs at this time. documented in this encounter Plan of Treatment Not on file documented as of this encounter Visit Diagnoses Not on filedocumented in this encounter Care Teams Hatchery Manager Relationship Specialty [place] [address] [address] [facility] [place] [address] PCP - General 07/04/19 [place] [address] [address] [facility] [place] [address] 11/16/18 Ernie Shaw MD [address] [place] [address] DR [address]UG[address] [place] [address] Dredge Engineer Obstetrics and Gynecology 06/10/20 documented as of this encounter
--- OUTSIDE RECORDS SUMMARY | 2024-02-24 20:06 | XMS_ITS | Encounter Summary ---
Author Organization [facility] [employer] [facility] Address [address] [place] [address] Phone Care Team Providers Care Fulling Machine Operator Name Role Phone Huseyin Dangelo MD Unavailable [phone] Brian Mon MD Primary Care Provider + Ernie Shaw MD Unavailable [phone] Reason for Visit * Reason Onset Date Comments vag bleeding and leaking of fluid 10/18/2020 Encounter Details Date Type Department Care Team (Late st Contact Info) Description 10/18/2020 Telephone [facility] Maternal- Medicine [address] [facility] 7th Floor [address] [place] [address] Fariba Chin RN vag bleeding and leaking of fluid Social History Tobacco Use Types Packs/Day Years Used Date Smoking Tobacco: Former Cigarettes Q uit: 12/28/2018 Smokeless Tobacco: Never Alcohol Use Standard Drinks/Week Comments Yes 0 (1 standard drink = 0.6 oz pur e alcohol) occasionally AUDIT-C Answer Date Recorded Q1: How often do you have a drink containing alc ohol? Never 10/18/2020 Average Number of Drinks Not on file 021 Q3: How often do you have si x or more drinks on one occasion? Never 10/18/2020 PHQ-2 Answer Date Recorded PHQ-2 Total Score [...] Telephone Encounter - Fariba Chin RN - 10/18/2020 9:59 AM CDT Carito called this morning with complaints for bright red bleeding and leaking for fluid. She denies cramping or pain. She has a documented placenta previa. I recommended she [facility]. She verbalized understanding. documented in this encounter Plan of Treatment Not on file documented as of this encounter Visit Diagnoses Not on filedocumented in this encounter Care Teams Fulling Machine Operator Relationship Specialty [place] [address] [address] [place] [address] PCP - General 07/04/19 [place] [address] [address] [facility] [place] [address] 11/16/18 Ernie Shaw MD [address] [place] [address] [address] [place] [address] Stick Roller Obstetrics and Gynecology 06/10/20 documented as of this encounter
--- OUTSIDE RECORDS SUMMARY | 2024-02-24 20:06 | XMS_ITS | Encounter Summary ---
Author Organization [facility] [employer] [facility] Address [address] [place] [address] Phone Care Team Providers Care Roller Checker Name Role Phone Huseyin Dangelo MD Unavailable [phone] Brian Mon MD Primary Care Provider + Ernie Shaw MD Unavailable [phone] Encounter Details Date Type Department Care Team (Late st Contact Info) Description 10/19/2020 Telephone [facility] Obstetrics and Gynecology [address] [place] [address] Shanell Hodge Social History Tobacco Use [...] encounter Miscellaneous Notes * Telephone Encounter - Ayesha Scanlon Shaenll - 10/19/2020 1:40 PM CDT Left patient message to call * Telephone Encounter - Hui Ribeirony - 10/19/2020 1:39 PM CDT ----- Message from Pooja Roche MD PhD sent at 10/19/2020 11:48 AM CDT ----- Regarding: outpatient follow up Pt is discharging today (against medical advice) after 3rd bleed with placenta previa. Could we please move her appointment up to next week so that we can check in. Thanks! documented in this encounter Plan of Treatment Not on file documented as of this encounter Visit Diagnoses Not on filedocumented in this encounter Care Teams Roller Checker Relationship Specialty [place] [address] [address] [place] [address] PCP - General 07/04/19 [place] [address] [address] [place] [address] 11/16/18 Ernie Shaw MD [address] [place] [address] [address] [place] [address] Crew Leader/Control Room Operator Obstetrics and Gynecology 06/10/20 documented as of this encounter
--- OUTSIDE RECORDS SUMMARY | 2024-02-24 20:06 | XMS_ITS | Encounter Summary ---
Author Organization [facility] [employer] [facility] Address [address] [place] [address] Phone Care Team Providers Care Endocrinology Nurse Name Role Phone Huseyin Dangelo MD Unavailable [phone] Brian Mon MD Primary Care Provider + Ernie Shaw MD Unavailable [phone] Encounter Details Date Type Department Care Team (Late st Contact Info) Description 10/01/2020 Orders Only [facility] Maternal- Medicine [address] [facility] 7th Floor [address] [place] [address] Fariba Chin RN Social History Tobacco Use Types Packs/Day Years Used Date Smoking Tobacco: Former Cigarettes Q uit: 12/28/2018 Smokeless Tobacco: Never Alcohol Use Standard Drinks/Week Comments Yes 0 (1 standard drink = 0.6 oz pur e alcohol) occasionally AUDIT-C Answer Date Recorded Q1: How often do you have a drink containing alc ohol? Never 10/04/2020 Average Number of Drinks Not on file 021 Q3: How often do you have si x or more drinks on one occasion? Never 10/04/2020 PHQ-2 Answer Date Recorded PHQ-2 Total Score [...] mouth once for 1 dose 1 tablet 10/01/2020 10/01/2020 documented in this encounter Plan of Treatment Not on file documented as of this encounter Visit Diagnoses Not on filedocumented in this encounter Care Teams Endocrinology Nurse Relationship Specialty [place] [address] [address] [facility] [address] [place] [address] PCP - General 07/04/19 [place] [address] [address] [facility] [address] [place] [address] 11/16/18 Ernie Shaw MD [address] [place] [address] [address] [place] [address] Technical Administrator Obstetrics and Gynecology 06/10/20 documented as of this encounter
--- OUTSIDE RECORDS SUMMARY | 2024-02-24 20:06 | XMS_ITS | Encounter Summary ---
Author Organization [facility] [employer] [facility] Address [address] [place] [address] Phone Care Team Providers Care Van Owner Operator Name Role Phone Huseyin Dangelo MD Unavailable [phone] Brian Mon MD Primary Care Provider + Ernie Shaw MD Unavailable [phone] Reason for Visit * Reason Onset Date Comments Gums bleeding 09/22/2020 Encounter Details Date Type Department Care Team (Late st Contact Info) Description 09/22/2020 Telephone [facility] Maternal- Medicine [address] [facility] 7th Floor [address] [place] [address] Fariba Chin RN Gums bleeding Social History Tobacco Use Types Packs/Day Years Used Date Smoking Tobacco: Former Cigarettes Q uit: 12/28/2018 Smokeless Tobacco: Never Alcohol Use Standard Drinks/Week Comments Yes 0 (1 standard drink = 0.6 oz pur e alcohol) occasionally AUDIT-C Answer Date Recorded Q1: How often do you have a drink containing alc ohol? Never 09/23/2020 Average Number of Drinks Not on file 021 Frequency of Binge Drinking Not on file 08/27 PHQ-2 Answer Date Recorded PHQ-2 Total Score [...] Telephone Encounter - Fariba Chin RN - 09/22/2020 4:00 PM CDT Carito called today stating that she has notice her gums bleeding. Even if she uses her water pick she noticed a little bit of bleeding. She states she has not had a cleaning in a while. I recommended she be evaluated be her dentist. After review of her chart she does not seem to be on any medications that would alter her gums. We also discussed increase blood volume and vascularity during pregn love. We also recommended the she contact her Primary OB to let them know and inquired if she was still planning on transferring her care to [facility]. She stated yes she still plans to transfer care but they have not called her for an appointment yet. documented in this encounter Plan of Treatment Not on file documented as of this encounter Visit Diagnoses Not on filedocumented in this encounter Additional Health Concerns Infection Onset Date Last Indicated Resolved Time COVID: Suspected 09/13/2020 01/13/2021 09/22/2020 9:40 AM CDT documented as of this encounter Care Teams Van Owner Operator Relationship Specialty [place] [address] [address] [facility] [place] [address] PCP - General 07/04/19 [place] [address] [address] [facility] [place] [address] 11/16/18 Ernie Shwa MD [address] [place] [address] [address] [place] [address] Supervisor Publications Obstetrics and Gynecology 06/10/20 documented as of this encounter
--- OUTSIDE RECORDS SUMMARY | 2024-02-24 20:06 | XMS_ITS | Encounter Summary ---
Author Organization [facility] Healthcare Address [address] [place] [address] Care Team Providers Care Boiler Tube Reamer Name Role Phone Huseyin Dangelo MD Unavailable [phone] Brian Mon MD Primary Care Provider + Ernie Shaw MD Unavailable Reason for Visit * Reason Onset Date Comments Incoming Call 10/11/2020 Wants to know if the COVID vaccine is safe in Encounter Details Date Type Department Care Team (Late st Contact Info) Description 10/11/2020 Nurse Triage [address] [address] Violette Ludwig RN Social History Tobacco Use [...] Telephone Encounter - Violette Ludwig RN - 10/11/2020 5:42 PM CDT 1724: Patient calling to ask if the COVID vaccine is safe in . Explained that she needs todiscuss this with her provider - next appointment is 11/02/2020. Patient stating that her doctor toldher to get it. Asking if a lot of women have gotten the vaccine while ? Stated that we haveseen a lot of women who have received the vaccine while . Patient stated she guessed she would go get the vaccine then. Reason for Disposition ??? Caller has medication question only, adult not sick, and triager answers question Answer Assessment - Initial Assessment Questions 1. NAME of MEDICATION: What medicine are you calling about? COVID vaccine 2. QUESTION: What is your question? Is the COVID vaccine safe in ? 3. PRESCRIBING HCP: Who prescribed it? Reason: if prescribed by specialist, call should be referred to that group. N/A 4. SYMPTOMS: Do you have any symptoms? None 5. SEVERITY: If symptoms are present, ask Are they mild, moderate or severe? N/A 6. : Is there any chance that you are ? When was your last menstrual period? , MANE: 01/27/2021 Protocols used: MEDICATION QUESTION [id number] documented in this encounter Plan of Treatment Not on file documented as of this encounter Visit Diagnoses Not on filedocumented in this encounter Care Teams Boiler Tube Reamer Relationship Specialty [place] [address] [address] [place] [address] PCP - General 07/04/19 [place] [address] [address] [place] [address] 11/16/18 Ernie Shaw MD [address] [facility] [address] [address] Blood Bank Custodian Obstetrics and Gynecology 06/10/20 documented as of this encounter
--- OUTSIDE RECORDS SUMMARY | 2024-02-24 20:06 | XMS_ITS | Encounter Summary ---
Author Organization [facility] Healthcare Address [address] [place] [address] Care Team Providers Care Hot Metal Car Operator Name Role Phone Huseyin Dangelo MD Unavailable [phone] Brian Mon MD Primary Care Provider + Ernie Shaw MD Unavailable [phone] Encounter Details Date Type Department Care Team (Late st Contact Info) Description 10/07/2020 4:45 PM CDT Lab [address] [id number] Carolina Delarosa MD [address] [place] [address] Other systemic lupus erythematosus with other [...] Encounter Note - Carolina Delarosa MD - 10/08/2020 1:44 PM CDT Carito one of you labs is still pending but the rest look stable Let me know how you do after the pred 10 mg next week documented in this encounter Plan of Treatment Not on file documented as of this encounter Procedures Procedure Name Priority Date/Time Associated Diagnosis Comments EGFR Routine 10/07/2020 4:54 PM CDT Other systemic lupus erythematosus with other organ involvement (HCC) DIFFERENTIAL AUTO Routine 10/07/2020 4:5 4 PM CDT Other systemic lupus erythematosus with other organ involvement (HCC) C4 COMPLEMENT Routine 10/07/2020 4:54 PM CDT Other systemic lupus erythematosus with other organ involvement (HCC) ANTI-DOUBLE STRANDED DNA ANTIBODIES Routine 10/07/2020 4:54 PM CDT CBC WITH AUTO DIFFERENTIAL Routine 10/07/2020 4:54 PM CDT Other systemic lupus erythematosus with other organ involvement (HCC) ERYTHROCYTE SEDIMENTATION RATE Routine 10/07/2020 4:54 PM CDT Other systemic lupus erythematosus with other organ involvement (HCC) C3 COMPLEMENT Routine 10/07/2020 4:54 PM CDT Other systemic lupus erythematosus with other organ involvement (HCC) CRP (ACUTE PHASE) Routine 10/07/2020 4:5 4 PM CDT Other systemic lupus erythematosus with other organ involvement (HCC) COMPREHENSIVE METABOLIC PANEL Routine 10/07/2020 4:54 PM CDT Other systemic lupus erythematosus with other organ involvement (HCC) PROTEIN / CREATININE RATIO, URINE, RANDOM Routine 10/07/2020 4:47 PM CDT Other systemic lupus erythematosus with other organ involvement (HCC) URINALYSIS AND REFLEX TO MICROSCOPIC AND CULTURE Routine 10/07/2020 3:19 PM CDT Other systemic lupus erythematosus with other organ involvement (HCC) documented in this encounter Results * Anti-double stranded DNA antibodies (10/07/2020 4:54 PM CDT) Anti-double stranded DNA, IgG Negative Negative [facility] ([place]) Comment:Testing performed by : [facility], [address] [place] [address]., [id number] Blood 10/07/2020 4:54 PM CDT 10/11/2020 11:55 AM CDT Carolina Delarosa MD LAB BLOOD ORDERABLES Final Result [facility] ([place]) 1 [facility] [place] [address] * eGFR (10/07/2020 4:54 PM CDT) eGFR 144 mL/min/1.7 3 m2 [facility] ([place]) Comment: Interpretive Data [...] interpretive data was last reviewed 2020 Blood specimen (specimen) 10/07/2020 4:54 PM CDT 10/07/2020 5:03 PM CDT us Carolina Delarosa MD LAB BLOOD ORDERABLES Final Result [facility] ([place]) 1 [facility] [place] [address] * (ABNORMAL) Differential, auto (10/07/2020 4:54 PM CDT) Neutrophil abs 8.5(H) 1.7 - 6.5 K/cumm [facility] ([place]) Imm gran abs 0.0 0.0 - 0.1 K/cumm [facility] ([place]) Lymphocyte abs 0.9 0.8 - 3.3 K/cumm [facility] ([place]) Monocyte abs 0.5 0.2 - 0.8 K/cumm [facility] ([place]) Eosinophil abs 0.0 0.0 - 0.5 K/cumm [facility] ([place]) Basophil abs 0.0 0.0 - 0.1 K/cumm [facility] ([place]) Neutrophil pct 85.6 % [facility] ([place]) Comment: Interpretive [...] was last revised on 2017. Lymphocyte pct 9.0 % [facility] ([place]) Comment: Interpretive Data Percent cell count reference ranges are not reported, since discordance with absolute values may lead to misinterpretation of CBC data. Current Interpretive Data was last revised on 2017. Monocyte pct 4.5 % [facility] ([place]) Comment: Interpretive Data [...] Data was last revised on 2017. Blood specimen (specimen) 10/07/2020 4:54 PM CDT 10/07/2020 5:03 PM CDT Carolina Delarosa MD LAB BLOOD ORDERABLES Final Result [facility] ([place]) 1 [facility] [place] [address] * C4 complement (10/07/2020 4:54 PM CDT) Complement C4 21 10 - 40 mg/dL [facility] ([place]) Comment:Testing performed by : [facility], [address] [place] [address], [place]., [address] Blood specimen (specimen) 10/07/2020 4:54 PM CDT 10/08/2020 10:08 AM CDT Carolina Delarosa MD LAB BLOOD ORDERABLES Final Result [facility] ([place]) 1 [facility] [place] [address] * (ABNORMAL) Erythrocyte sedimentation rate (10/07/2020 4:54 PM CDT) Pathologist [facility] Erythrocyte sedimentation rate 53(H) 1 - 20 mm/hr [facility] ([place]) Blood specimen (specimen) 10/07/2020 4:54 PM CDT 10/07/2020 5:03 PM CDT Carolina Delarosa MD LAB BLOOD ORDERABLES Final Result [facility] ([place]) [address] [place] [address] * (ABNORMAL) CRP (acute phase) (10/07/2020 4:54 PM CDT) Pathologist [facility] CRP 22.3(H) <=10.0 mg/L [facility] ([place]) Blood specimen (specimen) 10/07/2020 4:54 PM CDT 10/07/2020 5:03 PM CDT Carolina Delarosa MD LAB BLOOD ORDERABLES Final Result Performing Organization Address [facility]/ZIP Co de Phone Number [facility] ([place]) [address] [place] [address] * C3 complement (10/07/2020 4:54 PM CDT) Pathologist [facility] Complement C3 156 90 - 180 mg/dL [facility] ([place]) Comment:Testing performed by : [facility], [address] [place] [address], [place]., [address] Blood specimen (specimen) 10/07/2020 4:54 PM CDT 10/08/2020 10:08 AM CDT Carolina Delarosa MD LAB BLOOD ORDERABLES Final Result [facility] ([place]) 1 [facility] [place] [address] * (ABNORMAL) Comprehensive metabolic panel (10/07/2020 4:54 PM CDT) Sodium 134(L) 135 - 145 mmol/L [facility] ([place]) Potassium, pl 3.6 3.3 - 4.9 mmol/L [facility] ([place]) Chloride 102 97 - 110 mmol/L [facility] ([place]) CO2 20(L) 22 - 32 mmol/L [facility] ([place]) Anion gap 12 2 - 15 mmol/L [facility] ([place]) BUN 9 8 - 25 mg/dL [facility] ([place]) Creatinine 0.38(L) 0.60 - 1.10 mg/dL [facility] ([place]) Glucose 118 70 - 199 mg/dL [facility] ([place]) [...] interpretive data was last revised 2017. Calcium 8.9 8.5 - 10.3 mg/dL [facility] ([place]) Bilirubin, total <0.2 0.1 - 1.2 mg/dL [facility] ([place]) Protein, pl 6.3(L) 6.5 - 8.5 g/dL [facility] ([place]) Albumin 3.5 3.5 - 5.0 g/dL [facility] ([place]) Alk phos 67 40 - 130 Units/L [facility] ([place]) ALT 13 7 - 45 Units/L [facility] ([place]) AST 16 10 - 45 Units/L [facility] ([place]) Blood specimen (specimen) 10/07/2020 4:54 PM CDT 10/07/2020 5:03 PM CDT us Carolina Delarosa MD LAB BLOOD ORDERABLES Final Result [facility] ([place]) 1 [facility] [place] [address] * (ABNORMAL) CBC with auto differential (10/07/2020 4:54 PM CDT) Pathologist [facility] WBC 10.0(H) 3.8 - 9.9 K/cumm [facility] ([place]) Hgb 10.3(L) 11.9 - 15.5 g/dL [facility] ([place]) Hct 30.8(L) 35.6 - 45.5 % [facility] ([place]) Plt 275 150 - 400 K/cumm [facility] ([place]) MPV 9.7 9.1 - 12.3 fL [facility] ([place]) RBC 3.50(L) 3.90 - 5.20 M/cumm [facility] ([place]) MCV 88.0 81.3 - 96.4 fL [facility] ([place]) MCH 29.4 27.1 - 33.3 pg [facility] ([place]) MCHC 33.4 32.3 - 35.7 g/dL [facility] ([place]) RDW CV 14.1 11.1 - 14.9 % [facility] ([place]) RDW SD 44.5 35.7 - 48.1 fL [facility] ([place]) NRBC abs 0.00 0.00 - 0.01 K/cumm [facility] ([place]) Blood specimen (specimen) 10/07/2020 4:54 PM CDT 10/07/2020 5:03 PM CDT us Carolina Delarosa MD LAB BLOOD ORDERABLES Final Result [facility] ([place]) 1 [facility] [place] [address] * Protein / creatinine ratio, urine, random (10/07/2020 4:47 PM CDT) Pathologist [facility] Protein, ur, quant 7.0 mg/dL [facility] ([place]) Comment: Interpretive Data No reference range established. Current interpretive data was last revised 2018. Creatinine Ur 55.7 mg/dL [facility] ([place]) Comment: Interpretive Data No reference range established. Current interpretive data was last revised 2018. Protein/creatinin e ratio 125.7 0.0 - 180.0 mg/g CR [facility] ([place]) Urine 10/07/2020 4:47 PM CDT 10/07/2020 5:03 PM CDT us Carolina Delarosa MD LAB URINE ORDERABLES Final Result [facility] ([place]) 1 [facility] [place] [address] * Urinalysis reflex to microscopic and culture Urine (10/07/2020 3:19 PM CDT) Color, ur Yellow Yellow [facility] ([place]) Clarity, ur Clear Clear [facility] ([place]) Specific gravity, ur 1.010 1.010 - 1.025 [facility] ([place]) pH, urine 5.5 [facility] ([place]) Protein, ur ql Negative Negative [facility] ([place]) Glucose, ur ql Negative Negative [facility] ([place]) Ketones, ur Negative Negative [facility] ([place]) Bilirubin, ur Negative Negative [facility] ([place]) Blood, ur Negative Negative [facility] ([place]) Urobilinogen, ur <2.0 <2.0 mg/dL [facility] ([place]) Nitrite, ur Negative Negative [facility] ([place]) Leukocyte esterase, ur Negative Negative [facility] ([place]) UA reflex comment Reflex conditions for microscopic UA and culture not met. [facility] ([place]) Urine 10/07/2020 3:19 PM CDT 10/07/2020 5:03 PM CDT Narrative [facility] ([place]) - 10/07/2020 5:06 PM CDT ?? Urine pH is affected by diet, medications, systemic acid-base disturbances, and renal tubular function. ??pH may affect urinary stone formation. ??For example, urine pH below 6.0 may help reduce the tendency for calcium phosphate stones and pH greater than 6.0 may reduce the tendency for uric acid stone formation. Source: [employer]. Last revised 03-08-2017 us Carolina Delarosa MD LAB MICROBIOLOGY - GENERAL ORDERABLES Final Result [facility] ([place]) 1 [facility] [place] [address] documented in this encounter Visit Diagnoses Diagnosis Other systemic lupus erythematosus with other organ involvement (HCC) documented in this encounter Care Teams Hot Metal Car Operator Relationship Specialty [place] [address] [address] [facility] [place] [address] PCP - General 07/04/19 [place] [address] [address] [facility] [place] [address] 11/16/18 Ernie Shaw MD [address] [place] [address] Wardrobe Specialist Obstetrics and Gynecology 06/10/20 documented as of this encounter
--- OUTSIDE RECORDS SUMMARY | 2024-02-24 20:06 | XMS_ITS | Encounter Summary ---
Author Organization [facility] Healthcare Address [address] [place] [address] Care Team Providers Care Locomotive Crane Operator Helper Name Role Phone Huseyin Dangelo MD Unavailable [phone] Brian Mon MD Primary Care Provider + Ernie Shaw MD Unavailable [phone] Encounter Details Date Type Department Care Team (Latest Contact Info) Description 10/07/2020 Telephone Internal Medicine Ralph Cruz MD PhD [address] [address] Social History Tobacco Use Types Packs/Day [...] Encounter - Ralph Cruz MD PhD - 10/07/2020 6:13 PM CDT Phone Encounter Note Received call back request and contacted patient at her cell contact number. She reviewed her laboratory bloodwork in [facility] and was worried that her lupus had entered a flarebecause of elevated ESR/CRP. Explained that more sensitive markers of lupus activity usually associated with dsDNA antibody titer, complement C3, and complement C4, all of which had not resulted yet.Her urine prot/Cr ratio was low, which is reassuring: Reviewed CRP trend 26.5 > 15.5 > 22.3 ESR trend: 33 > 48 > 53 Over the past month Though slightly elevated from two weeks ago, I reassured her that I did not think the inflammatory marker exchange engineer the past month was strongly suggestive of a lupus flare. She is having increasing polyarthralgias and asked whether it would be appropriate to take 10 mg prednisone rather than 5 mg daily. Given the earlier concern for adrenal insufficiency, and Dr. Delarosa's concern that she may need stress dose steroids during delivery, I did recommend that at this point in gestation (24 weeks), would be safe and appropriate to try to control lupus flare with an increased prednisone dose. She expressed understanding. Also asked whether it would be okay to take Flexeril for pain control rather than Tylenol, which has not been helping much. Reviewed and while Flexeril is not contraindicated during , does not appear well studied and recommended she try to avoid if possible (had previously taken during a separate .) As more laboratory studies return back (C3, C4, dsDNA), explained that Dr. Delarosa would call back if there was additional concern. She had no further questions. Ralph Cruz MD PhD Rheumatology Fellow health education director documented in this encounter Plan of Treatment Not on file documented as of this encounter Visit Diagnoses Not on filedocumented in this encounter Care Teams Locomotive Crane Operator Helper Relationship Specialty [place] [address] [address] PCP - General 07/04/19 [place] [address] [address] [place] [address] 11/16/18 Ernie Shaw MD [address] [place] [address] Shipyard Painting Supervisor Obstetrics and Gynecology 06/10/20 documented as of this encounter
--- OUTSIDE RECORDS SUMMARY | 2024-02-24 20:06 | XMS_ITS | Encounter Summary ---
Author Organization [facility] Address [address] [place] [address] Care Team Providers Care Honeycomb Decapper Name Role Phone Huseyin Dangelo MD Unavailable [phone] Brian Mon MD Primary Care Provider + Ernie Shaw MD Unavailable [phone] Reason for Visit * Reason Comments Generalized Body Aches body aches all ov er/no known exposure/has one vaccine needs the second but is Fatigue fatigue/diarrhea/sta rted about 4-5 days ago Encounter Details Date Type Department Care Team (Late st Contact Info) Description 09/22/2020 9:15 AM CDT Office Visit [facility] [address] [place] [id number] Dayna Martinez, SUPERVISOR [employer] [address] [place] [address] Viral upper respiratory tract infection (Primary Dx); Fatigue, unspecified type; Sore throat Social History Tobacco Use Types [...] Sign Reading Time Taken Comments Blood Pressure 124/88 09/22/2020 9:10 AM CDT Pulse 98 09/22/2020 9:10 AM CDT Temperature 36.7 ??C (98.1 ??F) 09/22/2020 9:10 AM CD T Respiratory Rate 16 09/22/2020 9:10 AM CDT Oxygen Saturation 98% 09/22/2020 9:10 AM CDT Inhaled Oxygen Concentration - - Weight 81.7 kg (180 lb 3.2 oz) 09/22/2020 9:10 A M CDT Height 157.5 cm (5' 2 ) 09/22/2020 9:10 AM CDT Body Mass Index 32.96 09/22/2020 9:10 AM CDT documented in this encounter Patient Instructions * Patient Instructions* Dayna Martinez NP - 09/22/2020 9:15 AM CDT Recommendations and Information The main treatment for respiratory infections of any kind is to rest, eat healthy, and drink plentyof fluids. Cold symptoms will likely last anywhere from 7-10 days with symptoms feeling much worse on days 3-5. Antibiotic medications do not cure a cold nor do antibiotic medications help to shortenthe symptoms of viral illness. The following may help you feel better: ??? Check with POST DOC FELLOWSHIP for appropriate OTC symptom relief. ??? Breathe moist air from a humidifier, a hot shower, or a sink filled with hot water. The heat and moisture can help keep mucus in your airways moist so you can cough it out easily. ??? Use nonprescription medicine, such as acetaminophen, ibuprofen, or aspirin, to relieve fever and body aches. Don't give aspirin to anyone younger than age 20. ??? Rest more than usual. ??? Drink plenty of fluids so that you do not become dehydrated and to keep mucous thin. ??? Use an yzxt-can-tedyose cough medicine such as Delsym or Robitussin. (Cough medicines may not be safe for young children or for people who have certain health problems.) Cough suppressants may help you to stop coughing. Expectorants, such as Mucinex, can help you bring up mucus when you cough. ??? Follow up with primary care physician in 1 week, or sooner if symptoms worsen. If you experience worsening shortness of breath or fever >101, go to the Emergency Room. Results for orders placed or performed in visit on 09/22/20 POCT rapid strep A Result Value Ref Range Rapid Strep A, POC Negative POCT influenza A/B Result Value Ref Range Rapid Influenza A Ag Negative Negative, Invalid Rapid Influenza B Ag Negative Negative, Invalid COVID-19 POC Result Value Ref Range COVID-19 Ag POC Presumptive Negative Presumptive Negative, Invalid documented in this encounter Progress Notes * Dayna Martinez NP - 09/22/2020 9:15 AM CDT Images from the original note were not included. Patient ID: Carito Madison is a 30 y.o. female followed by Brian Mon MD Patient was wearing the following PPE: mask. Provider was wearing the following PPE: mask, gloves, goggles Patient presents to clinic for assessment of Chief Complaint Patient presents with ??? Generalized Body Aches body aches all over/no known exposure/has one vaccine needs the second but is ??? Fatigue fatigue/diarrhea/started about 4-5 days ago . Patient reports SORE THROAT, BODY ACHES and FATIGUE Patient reports this has been going on for 5 days. Patient with sick or suspected COVID-19 contacts: NO Patient has following risks for COVID-19: Patient is Past Medical History: Diagnosis Date ??? Anemia ??? Anxiety ??? Asthma ??? Chronic diarrhea ??? Chronic kidney disease ??? Depression ??? Fibromyalgia ??? Fibromyalgia ??? Headache, tension-type ??? Lupus (CMS/HCC) ??? Migraine ??? PONV (postoperative nausea and vomiting) ??? 07/13/2015 ??? Rheumatoid arthritis (CMS/HCC) ??? Seizures (CMS/HCC) Current Outpatient Medications Medication Sig Dispense Refill ??? hydrOXYchloroQUINE (PLAQUENIL) 200 mg tablet Take 2 tablets (400 mg total) by mouth daily 60 tablet 0 ??? ondansetron ODT (ZOFRAN-ODT) 8 mg disintegrating tablet Dissolve 1 tablet on top of tongue thenswallow with saliva every 8 hours as needed for nausea or vomiting ??? predniSONE (DELTASONE) 5 mg tablet TAKE 2 TABLETS(10 MG) BY MOUTH DAILY 60 tablet 0 ??? sertraline (ZOLOFT) 50 mg tablet Take 1.5 tablets (75 mg total) by mouth daily 45 tablet 2 ??? aspirin 81 mg enteric coated tablet Take 81 mg by mouth daily ??? azaTHIOprine (IMURAN) 50 mg tablet Take 1 tablet (50 mg total) by mouth daily (Patient not taking: Reported on 09/22/2020) 30 tablet 1 ??? ferrous gluconate 324 mg (38 mg of elemental iron) tablet TAKE 1 TABLET BY MOUTH THREE TIMES A DAY (Patient not taking: Reported on 06/22/2020) 90 tablet 2 ??? multivitamin capsule Take 1 capsule by mouth daily (Patient not taking: Reported on 09/22/2020) ??? nitrofurantoin monohydrate (MACROBID) 100 mg capsule Take 1 capsule (100 mg total) by mouth 2 (two) times a day (Patient not taking: Reported on 09/22/2020) 14 capsule 0 ??? omeprazole (PriLOSEC) 20 mg capsule Take 20 mg by mouth daily (Patient not taking: Reported on 09/22/2020) ??? ondansetron (ZOFRAN) 4 mg tablet Take 1 tablet (4 mg total) by mouth every 8 (eight) hours as needed for nausea or vomiting (Patient not taking: Reported on 09/22/2020) 20 tablet 0 ??? polyethylene glycol (MIRALAX) 17 gram/dose powder Take 17 g by mouth 2 (two) times a day ??? predniSONE (DELTASONE) 1 mg tablet prednisone 1 mg tablet TAKE 1 TABLET BY MOUTH EVERY DAY (Patient not taking: Reported on 09/22/2020) ??? progesterone (PROMETRIUM) 200 mg capsule Take by mouth daily (Patient not taking: Reported on 09/22/2020) ??? valACYclovir (VALTREX) 500 mg tablet TAKE 1 TAB BY MOUTH 3 TIMES DAILY FOR 7 DAYS. No current facility-administered medications for this visit. There is no immunization history on file for this patient. Social History Tobacco Use Smoking Status Former Smoker ??? Quit date: 12/28/2018 ??? Years since quittin.7 Smokeless Tobacco Never Used Vitals: 09/22/20 0910 BP: 124/88 BP Location: Right arm Patient Position: Sitting Pulse: 98 Resp: 16 Temp: 36.7 ??C (98.1 ??F) TempSrc: Temporal SpO2: 98% Weight: 81.7 kg (180 lb 3.2 oz) Height: 157.5 cm (5' 2 ) Chief Complaint Patient presents with ??? Generalized Body Aches body aches all over/no known exposure/has one vaccine needs the second but is ??? Fatigue fatigue/diarrhea/started about 4-5 days ago Patient reports 5 day history of fatigue and body aches. She denies any known fever but states she takes Tylenol frequently for the body aches. She is currently 22 weeks saw her Ob last on yesterday. She reports everything was normal at her last visit with the OB Gyne. She states she has vomiting on a normal basis with her . She has had 1 COVID vaccine in May. She did not havethe 2nd 1 due to . She denies any known exposures to COVID or similar. Review of Systems Constitutional: Positive for fatigue. Negative for activity change, appetite change and fever. HENT: Negative for congestion, ear discharge, ear pain, postnasal drip, rhinorrhea, sinus pressure and sore throat. Eyes: Negative for discharge. Respiratory: Negative for cough and shortness of breath. Gastrointestinal: Positive for nausea and vomiting. Negative for diarrhea. Musculoskeletal: Positive for myalgias. Skin: Negative for rash. Neurological: Negative for headaches. Hematological: Negative for adenopathy. Physical Exam Vitals reviewed. Constitutional: General: She is not in acute distress. Appearance: Normal appearance. She is well-developed. She is not ill-appearing. HENT: Head: Normocephalic. Right Ear: Ear canal and external ear normal. A middle ear effusion is present. Left Ear: Ear canal and external ear normal. A middle ear effusion is present. Nose: No congestion or rhinorrhea. Right Sinus: No maxillary sinus tenderness or frontal sinus tenderness. Left Sinus: No maxillary sinus tenderness or frontal sinus tenderness. Mouth/Throat: Lips: [place]. Mouth: Mucous membranes are moist. Pharynx: Posterior oropharyngeal erythema present. Eyes: General: Right eye: No discharge. Left [...] No tonsillar adenopathy. Left side of head: Tonsillar adenopathy present. Cervical: No cervical adenopathy. Skin: General: Skin is warm and dry. Findings: No rash. Neurological: Mental Status: She is alert and oriented to person, place, and time. Mental status is at baseline. Psychiatric: Attention and Perception: Attention normal. Mood and Affect: Mood normal. Behavior: Behavior normal. Behavior is cooperative. Thought Content: Thought content normal. Judgment: Judgment normal. Assessment/Plan Swabbed for COVID-19 today in clinic. neg Advise retesting if symptoms develop Patient instructed to self isolate Discussed COVID testing reasoning Reviewed isolation/quarantine protocols Discussed symptomatic relief of symptoms Discussed need to return to ER for further evaluation including worsening fevers, shortness of breath, of other concerning symptoms Advised to rest and stay adequately hydrated Diagnoses and all orders for this visit: Viral upper respiratory tract infection (Primary) Fatigue, unspecified type - POCT rapid strep A - POCT influenza A/B - COVID-19 POC Sore throat - Throat culture Throat; Future Recommendations and Information The main treatment for respiratory infections of any kind is to rest, eat healthy, and drink plentyof fluids. Cold symptoms will likely last anywhere from 7-10 days with symptoms feeling much worse on days 3-5. Antibiotic medications do not cure a cold nor do antibiotic medications help to shortenthe symptoms of viral illness. The following may help you feel better: ??? Check with POST DOC FELLOWSHIP for appropriate OTC symptom relief. ??? Breathe moist air from a humidifier, a hot shower, or a sink filled with hot water. The heat and moisture can help keep mucus in your airways moist so you can cough it out easily. ??? Use nonprescription medicine, such as acetaminophen, ibuprofen, or aspirin, to relieve fever and body aches. Don't give aspirin to anyone younger than age 20. ??? Rest more than usual. ??? Drink plenty of fluids so that you do not become dehydrated and to keep mucous thin. ??? Use an hqrq-dqa-fbkfmnq cough medicine such as Delsym or Robitussin. (Cough medicines may not be safe for young children or for people who have certain health problems.) Cough suppressants may help you to stop coughing. Expectorants, such as Mucinex, can help you bring up mucus when you cough. ??? Follow up with primary care physician in 1 week, or sooner if symptoms worsen. If you experience worsening shortness of breath or fever >101, go to the Emergency Room. Results for orders placed or performed in visit on 09/22/20 POCT rapid strep A Result Value Ref Range Rapid Strep A, POC Negative POCT influenza A/B Result Value Ref Range Rapid Influenza A Ag Negative Negative, Invalid Rapid Influenza B Ag Negative Negative, Invalid COVID-19 POC Result Value Ref Range COVID-19 Ag POC Presumptive Negative Presumptive Negative, Invalid Orders Placed This Encounter Procedures ??? Throat culture Throat Standing Status: Future Standing Expiration Date: 09/22/2021 ??? POCT rapid strep A ??? POCT influenza A/B ??? COVID-19 POC Order Specific Question: Is the Patient experiencing symptoms consistent with COVID? Answer: Yes Order Specific Question: Date of Symptom Onset Answer: 09/18/2020 Order Specific Question: Is the patient hospitalized? [...] living setting? Answer: No Order Specific Question: Is the patient ? Answer: Yes documented in this encounter Plan of Treatment Not on file documented as of this encounter Procedures Procedure Name Priority Date/Time Associated Diagnosis Comments COVID-19 POC Routine 09/22/2020 9:39 AM CDT Fatigue, unspecified type POCT INFLUENZA A/B Routine 09/22/2020 9: 31 AM CDT Fatigue, unspecified type POCT RAPID STREP Routine 09/22/2020 9:31 AM CDT Fatigue, unspecified type documented in this encounter Results * Throat culture Throat (09/22/2020 9:59 AM CDT) Report Final Report: No growth of pathogens. ARPITA POLLARD Comment:Testing performed by : [facility], [address] [place]., [address] Throat 09/22/2020 9:59 AM CDT 09/22/2020 3:56 PM CDT Narrative ARPITA POLLARD - 09/23/2020 11:47 PM CDT Testing performed by [facility] ([phone]). us Dayna Martinez NP LAB MICROBIOLOGY - GENERAL ORDERABLES Final Result [facility] [address] Department [place] [address] * COVID-19 POC (09/22/2020 9:39 AM CDT) COVID-19 Ag POC (BD Veritor) Presumptive Negative Presumptive Negative, Invalid [facility] 09/22/2020 9:39 AM CDT us Dayna Martinez NP POINT OF CARE TEST ORDERABL ES Final Result [facility] [address] [place] [address] * POCT influenza A/B (09/22/2020 9:31 AM CDT) Rapid Influenza A Ag Negative Negative, Invalid Rapid Influenza B Ag Negative Negative, Invalid Nasopharyngeal 09/22/2020 9: 31 AM CDT [facility] [employer]PER[employer] POINT OF CARE TEST ORDERABL ES Final Result * POCT rapid strep A (09/22/2020 9:31 AM CDT) Rapid Strep A, POC Negative Swab 09/22/2020 9:31 AM CDT aDyna Martinez SUPER[employer] POINT OF CARE TEST ORDERABL ES Final Result documented in this encounter Visit Diagnoses Diagnosis Viral upper respiratory tract infection- Primary Acute upper respiratory infections of unspecified site Fatigue, unspecified type Sore throat Acute pharyngitis Sore throat Acute pharyngitis documented in this encounter Additional Health Concerns Infection Onset Date Last Indicated Resolved Time COVID: Suspected 09/13/2020 01/13/2021 09/22/2020 9:40 AM CDT documented as of this encounter Care Teams Honeycomb Decapper Relationship Specialty [place] [address] [address] [place] [address] PCP - General 07/04/19 [place] [address] [address] [place] [address] 11/16/18 Ernie Shaw MD [address] [place] [address] [address] [place] [address] Plant Puller Obstetrics and Gynecology 06/10/20 documented as of this encounter
--- OUTSIDE RECORDS SUMMARY | 2024-02-24 20:06 | XMS_ITS | Encounter Summary ---
Author Organization [facility] [employer] [facility] Address [address] [place] [address] Phone Care Team Providers Care Staffing And Scheduling Coordinator Name Role Phone Huseyin Dangelo MD Unavailable [phone] Brian Mon MD Primary Care Provider + Ernie Shaw MD Unavailable Reason for Visit * Reason Onset Date Comments Incoming Call 10/13/2020 lower karley k pain Encounter Details Date Type Department Care Team (Late st Contact Info) Description 10/13/2020 Nurse Triage [facility] Maternal- Medicine [address] [facility] 7th Floor [address] [place] [address] Crystal Murray MD [address] [facility] [phone] [place] [address] Social History Tobacco Use Types [...] encounter Miscellaneous Notes * Telephone Encounter - Rachelle Elizabeth, PRO - 10/13/2020 4:50 PM CDT Pt called stating she has been having lower back pain since 1500 today. Pt states pain comes and goes, pt at work all day today, unable to drink much fluid. Pt reports issues with passing stool as well as receiving her second COVID vaccine yesterday. Pt advised to push fluids, try miralax, and go home and rest and report back in 30 min-1 hour if no relief. Pt denies vaginal bleeding, abdominal tightening, or LOF. Pt reports taking tylenol all day today without relief. Pt desires to go to local L&D ([facility]) to be evaluated for labor. Pt called back at 1840 stating she did not go to [facility] for eval, and pain is persisting, but she feels like it may be related to constipation or her COVID vaccine. Pt verbalizes feeling comfortable with trying heat, pushing fluids, and resting. Pt verbalizes she will come in for evaluationif pain continues or she will call her OB in the AM. Reason for Disposition ? ? [1] MODERATE back pain (e.g., interferes with normal activities or sleep) AND [2] present > 3 days Answer Assessment - Initial Assessment Questions 1. ONSET: When did the pain begin? Today around 1500 2. LOCATION: Where does it hurt? (upper, mid or lower back) Lower 3. SEVERITY: How bad is the pain? (e.g., Scale 1-10; mild, moderate, or severe) - MILD (1-3): doesn't interfere with normal activities - MODERATE (4-7): interferes with normal activities or awakens from sleep - SEVERE (8-10): excruciating pain, unable to do any normal activities Moderate 4. PATTERN: Is the pain constant? (e.g., yes, no; constant, intermittent) Intermittent 5. RADIATION: Does the pain shoot into your legs or elsewhere? no 6. CAUSE: What do you think is causing the back pain? Muscle aches after COVID vaccine #2 yesterday or back labor or constipation 7. BACK OVERUSE: Any recent lifting of heavy objects, strenuous work or exercise? Work all day today 8. MEDICATIONS: What have you taken so far for the pain? (e.g., nothing, acetaminophen) Tylenol 9. NEUROLOGIC SYMPTOMS: Do you have any weakness, numbness, or problems with bowel/bladder control? No 10. OTHER SYMPTOMS: Do you have any other symptoms? (e.g., fever, abdominal pain, burning with urination, blood in urine, fluid leaking from vagina) No 11. MANE: What date are you expecting to deliver? 01/27/2021 Protocols used: - BACK [id number] documented in this encounter Plan of Treatment Not on file documented as of this encounter Visit Diagnoses Not on filedocumented in this encounter Care Teams Staffing And Scheduling Coordinator Relationship Specialty [place] [address] [address] [place] [address] PCP - General 07/04/19 [place] [address] [address] [place] [address] 11/16/18 Ernie Shaw MD [address] [place] [address] [address] [place] [address] Tool Worker Obstetrics and Gynecology 06/10/20 documented as of this encounter
--- OUTSIDE RECORDS SUMMARY | 2024-02-24 20:06 | XMS_ITS | Encounter Summary ---
Author Organization [facility] Address [address] [place] [address] Care Team Providers Care Buyer Agent Name Role Phone Huseyin Dangelo MD Unavailable [phone] Brian Mon MD Primary Care Provider + Ernie Shaw MD Unavailable [phone] Reason for Referral * Diagnostic Imaging (Routine) - Closed Specialty Diagnoses / Procedures Referred By Contac t Referred To Contact Diagnoses Supervision of high-risk , unspecified trimester Procedures US Ob Follow Up Kristin Sorto MD [address] [place] [address] Phone: tel: fax: [facility] (All Locations) Referral ID Status Reason Start Date Expiration Date Visits Re quested Visits Authorized [id number] Closed 08/26/2020 02/24/2021 1 12 Reason for Visit * Diagnostic Imaging (Routine) - Closed Specialty Diagnoses / Procedures Referred By Contac t Referred To Contact Diagnoses Supervision of high-risk , unspecified trimester Procedures US Ob Follow Up Kristin Sorto MD [address] [place] [address] Phone: tel: fax: [facility] (All Locations) Referral ID Status Reason Start Date Expiration Date Visits Re quested Visits Authorized [id number] Closed 08/26/2020 02/24/2021 1 12 Encounter Details Date Type Department Care Team (Late st Contact Info) Description 10/07/2020 9:51 AM CDT - 10/07/2020 11:59 PM CDT Hospital Encounter [facility] for [facility] - Ultrasound [address] 7th Floor, [address] [place] [address] Kristin Sorto MD [address] [facility] [address] [place], [place] [id number] Supervision of high-risk , unspecified trimester Discharge [...] BY MOUTH DAILY 60 tablet 08/09/2020 1 sertraline (ZOLOFT) 25 mg tablet 10/18/2020 2 sertraline (ZOLOFT) 50 mg tablet Take 1.5 tablets (75 mg total) by mouth daily 45 tablet 2 08/12/2020 1 valACYclovir (VALTREX) 500 mg tablet TAKE 1 [...] UP Schedule Routine, Read Routine (OP Routine) 10/07/2020 9:51 AM CDT Supervision of high-risk , unspecified trimester documented in this encounter Results * US Ob Follow Up (10/07/2020 9:51 AM CDT) Fetus# Fetus1 VIEWPOINT Placenta Details anterior, Previa-yes VIEWPOINT Estimated Weight 691 g&grams VIEWPOINT Presentation Transverse Lie VIEWPOINT Anatomical Region Laterality Modality Abdomen N/A Ultrasound 10/07/2020 9:54 AM CDT us Kristin Sorto MD IMG OB US PROCEDURES Briana l Result documented in this encounter Visit Diagnoses Diagnosis Supervision of high-risk , unspecified trimester documented in this encounter Care Teams Buyer Agent Relationship Specialty [place] [address] [address] [place] [address] PCP - General 07/04/19 [place] [address] [address] [place] [address] 11/16/18 Ernie Shaw MD [address] [place] [address] [address] [place] [address] [employer] Rol[employer] Obstetrics and Gynecology 06/10/20 documented as of this encounter
--- OUTSIDE RECORDS SUMMARY | 2024-02-24 20:06 | XMS_ITS | Encounter Summary ---
Author Organization [facility] Healthcare Address [address] [place] [address] Care Team Providers Care Rotary Screen Printing Machine Operator Name Role Phone Huseyin Dangelo MD Unavailable [phone] Brian Mon MD Primary Care Provider + Ernie Shaw MD Unavailable [phone] Reason for Visit * Reason Onset Date Comments Incoming Call 10/09/2020 asthma Encounter Details Date Type Department Care Team (Late st Contact Info) Description 10/09/2020 Nurse Triage [address] [address] Harriett Higuera, PRO Social History Tobacco Use Types Packs/Day [...] encounter Miscellaneous Notes * Telephone Encounter - Harriett Higuera, PRO - 10/09/2020 5:18 PM CDT Pt called with questions about taking her albuterol inhaler. Pt is asthmatic and has lupus and is followed by M. Pt has developed SOB only when lying down and has been experiencing for about a week. Pt had negative COVID test 2 weeks ago and reports that her SpO2 are fine. Pt also reports body aches but states they are chronic due to her lupus and has no felt no change in them from her baselin e. Pt is wondering if she can start taking her albuterol inhaler for her SOB when lying down. Dr. Olea called. Pt is ok to use albuterol inhaler. Pt informed and instructed to come to [facility] if no improvement in symptoms. Pt aware that she would be considered a r/o COVID pt at this time if sx don't improve. Pt agreeable to this plan and has no further questions at this time. documented in this encounter Plan of Treatment Not on file documented as of this encounter Visit Diagnoses Not on filedocumented in this encounter Care Teams Rotary Screen Printing Machine Operator Relationship Specialty [place] [address] [address] [place] [address] PCP - General 07/04/19 [place] [address] [address] [place] [address] 11/16/18 Ernie Shaw MD [address] [place] [address] [address] [place] [address] Hotel Supplies Salesperson Obstetrics and Gynecology 06/10/20 documented as of this encounter
--- OUTSIDE RECORDS SUMMARY | 2024-02-24 20:06 | XMS_ITS | Encounter Summary ---
Author Organization [facility] Healthcare Address [address] [place] [address] Care Team Providers Care Distributor Of Directories Name Role Phone Huseyin Dangelo MD Unavailable [phone] Brian Mon MD Primary Care Provider + Ernie Shaw MD Unavailable [phone] Reason for Visit * Reason Comments Vaginal Bleeding Encounter Details Date Type Department Care Team (Latest Contact Info) Description 09/29/2020 12:36 PM CDT - 09/29/2020 3:04 PM CDT Hospital Encounter [address] [phone] Dilan Riley MD [address] [facility] [phone] [place] [address] Discharge Disposition: Discharge to home or self [...] Sign Reading Time Taken Comments Blood Pressure 130/72 09/29/2020 12:45 PM CDT Pulse 95 09/29/2020 12:45 PM CDT Temperature 36.7 ??C (98 ??F) 09/29/2020 12:45 PM CDT Respiratory Rate 20 09/29/2020 12:45 PM CDT Oxygen Saturation 99% 09/29/2020 12:45 PM CDT Inhaled Oxygen Concentration - - Weight 82.2 kg (181 lb 3.2 oz) 09/29/2020 12:45 PM CDT Height 157.5 cm (5' 2 ) 09/29/2020 12:45 PM CDT Body Mass Index 33.14 09/29/2020 12:45 PM CDT documented in this encounter Discharge Diagnoses Diagnosis Spotting complicating , second trimester - SPOTTING COMPLICATING , SECOND TRIMESTER Partial placenta previa with hemorrhage, second trimester - PARTIAL PLACENTA PREVIA WITH HEMORRHAGE, SECOND TRIMESTER Other maternal infectious and parasitic diseases complicating , second trimester - OTHER MATERNAL INFECTIOUS AND PARASITIC DISEASES COMPLICATING , SECOND TRIMESTER Candidiasis, unspecified - CANDIDIASIS, UNSPECIFIED Other diseases of the blood and blood-forming organs and certain disorders involving the immune mechanism complicating , second trimester - OTHER DISEASES OF THE BLOOD AND BLOOD-FORMING ORGANS AND CERTAIN DISORDERS INVOLVING THE IMMUNE MECH Systemic lupus erythematosus, unspecified (HCC) - SYSTEMIC LUPUS ERYTHEMATOSUS, UNSPECIFIED Other specified related conditions, second trimester - OTHER SPECIFIED RELATED CONDITIONS, SECOND TRIMESTER Primary adrenocortical insufficiency (HCC) - PRIMARY ADRENOCORTICAL INSUFFICIENCY Glucocorticoid deficiency Other mental disorders complicating , second trimester - OTHER MENTAL DISORDERS COMPLICATING , SECOND TRIMESTER Anxiety disorder, unspecified - ANXIETY DISORDER, UNSPECIFIED Diseases of the digestive system complicating , second trimester - DISEASES OF THE DIGESTIVE SYSTEM COMPLICATING , SECOND TRIMESTER Gastro-esophageal reflux disease without esophagitis - GASTRO-ESOPHAGEAL REFLUX DISEASE WITHOUT ESOPHAGITIS Other specified diseases and conditions complicating - OTHER SPECIFIED DISEASES AND CONDITIONS COMPLICATING Fibromyalgia - FIBROMYALGIA Unspecified myalgia and myositis Rheumatoid arthritis, unspecified (HCC) - RHEUMATOID ARTHRITIS, UNSPECIFIED Diseases of the nervous system complicating , second trimester - DISEASES OF THE NERVOUS SYSTEM COMPLICATING , SECOND TRIMESTER Epilepsy, unspecified, not intractable, without status epilepticus (HCC) - EPILEPSY, UNSPECIFIED, NOT INTRACTABLE, WITHOUT STATUS EPILEPTICUS 22 weeks gestation of - 22 WEEKS GESTATION OF Personal history of nicotine dependence - PERSONAL HISTORY OF NICOTINE DEPENDENCE Family history of diabetes mellitus - FAMILY HISTORY OF DIABETES MELLITUS Family history of ischemic heart disease and other diseases of the circulatory system - FAMILY HISTORY OF ISCHEMIC HEART DISEASE AND OTHER DISEASES OF THE CIRCULATORY SYSTEM Family history of stroke - FAMILY HISTORY OF STROKE Family history of stroke (cerebrovascular) Allergy status to penicillin - ALLERGY STATUS TO PENICILLIN Allergy status to other drugs, medicaments and biological substances - ALLERGY STATUS TO OTHER DRUGS, MEDICAMENTS AND BIOLOGICAL SUBSTANCES intermediate designer (current) use of aspirin - RESEARCH CHEMIST (CURRENT) USE OF ASPIRIN Other nursing home (current) drug therapy - OTHER USP (CURRENT) DRUG THERAPY documented in this encounter Discharge Instructions * Attachments The following attachments cannot be sent through Care Everywhere. * AT 23 TO 26 WEEKS (DISCHARGE CARE) (MALTESE) documented in this encounter Medications at Time [...] mg total) by mouth daily 60 tablet 06/14/2020 1 multivitamin capsule Take 1 capsule by mouth [...] a day 30 g 1 09/29/2020 1 documented in this encounter Discharge Disposition Disposition Code Departure Means Destination Discharge to home or self care documented in this encounter H&P Notes * Alma Genao MD - 09/29/2020 12:41 PM CDT Obstetrics H&P Chief Complaint: vaginal bleeding Estimated Date of Delivery: 01/27/21 Provider: RENETTA HPI: Carito Madison is a 30 y.o. female at 22w6d gestation, dated by 1st trimester ultrasound who presented today with complaint of vaginal bleeding this morning at 11am. Reports being in the restroom and noticed blood in the toilet. Denies hemorrhoids or recent sexual intercourse. Denies Denies any further bleeding or abd pain. Endorses positive fm. 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 Patient [...] Former Smoker Quit date: 12/28/2018 Years since quittin.7 ??? Smokeless tobacco: Never Used Vaping Use [...] Syncope Syncope ??? Penicillins Hives and Rash ??? Amoxicillin Rash ??? Escitalopram Other (See comments) and Rash Caused seizures Caused seizures Caused seizures ??? Reglan [Metoclopramide] Dizziness ??? Sulfamethoxazole-Trimethoprim Other (See comments) Cannot take bactrim because of lupus ??? Venlafaxine Itching HOME MEDICATIONS : aspirin 81 mg enteric coated tablet ferrous gluconate 324 mg (38 mg of elemental iron) tablet hydrOXYchloroQUINE (PLAQUENIL) 200 mg tablet multivitamin capsule nitrofurantoin monohydrate (MACROBID) 100 mg capsule omeprazole (PriLOSEC) 20 mg capsule ondansetron ODT (ZOFRAN-ODT) 8 mg disintegrating tablet polyethylene glycol (MIRALAX) 17 gram/dose powder predniSONE (DELTASONE) 5 mg tablet sertraline (ZOLOFT) 50 mg tablet valACYclovir (VALTREX) 500 mg tablet Review of Sys: Negative except per HPI Vitals: Temp: [36.7 ??C (98 ??F)] 36.7 ??C (98 ??F) Pulse: [95] 95 Resp: [20] 20 BP: (130)/(72) 130/72 Physical Exam: General: NAD, mood appropriate Cardiovascular: Regular rate and rhythm Pulmonary: Clear to ausculation bilaterally Abdomen: Gravid, non-tender Extremities: Warm and well perfused Speculum Exam: blood none, Nitrizine test is negative, Ferning test is negative, wet prep results: resulted at bedside: positive hyphae, positive yeast and pH 4.5 Cervix: / / visually closed Monitoring:FHT 138 bpm Ultrasound: Per Dr. Genao Lab Review Recent Results (from the past 24 hour(s)) POCT urinalysis dipstick Collection Time: 09/29/20 12:53 PM Result Value Ref Range Color, Urine, POC Yellow Clarity, ur, POC Clear Clear Glucose, ur, POC Negative Negative mg/dL Bilirubin, ur, POC Negative Negative, Small, Moderate, Large Ketones, ur, POC Negative Negative Specific Yolo, POC 1.010 1.005 - 1.030 Blood, ur, POC Negative Negative pH, ur, POC 7.0 5.0 - 8.0 Protein, ur, POC Negative Negative Urobilinogen, urine, POC 0.2 0.2 - 1.0 mg/dL Nitrite, ur, POC Negative Negative Leukocytes, ur, POC Negative Negative Lot Number [id number] CBC without differential Collection Time: 09/29/20 1:45 PM Result Value Ref Range WBC 9.9 3.8 - 9.9 K/cumm Hgb 10.4 (L) 11.9 - 15.5 g/dL Hct 30.7 (L) 35.6 - 45.5 % Plt 316 150 - 400 K/cumm MPV 10.1 9.1 - 12.3 fL RBC 3.52 (L) 3.90 - 5.20 M/cumm MCV 87.2 81.3 - 96.4 fL MCH 29.5 27.1 - 33.3 pg MCHC 33.9 32.3 - 35.7 g/dL RDW CV 14.6 11.1 - 14.9 % RDW SD 45.1 35.7 - 48.1 fL NRBC abs 0.00 0.00 - 0.01 K/cumm Type and screen Collection Time: 09/29/20 1:45 PM Result Value Ref Range Jose Antonio, indirect Negative ABO Rh A Positive Protime-INR Collection Time: 09/29/20 1:45 PM Result Value Ref Range PT 10.5 9.5 - 13.6 sec INR 0.9 0.9 - 1.2 aPTT Collection Time: 09/29/20 1:45 PM Result Value Ref Range aPTT 22 (L) 27 - 37 sec Fibrinogen Collection Time: 09/29/20 1:45 PM Result Value Ref Range Fibrinogen 442 (H) 170 - 400 mg/dL Labs: Lab Results Component Value Date ABORH A Positive 09/29/2020 IDCOOMB Negative 09/29/2020 Assessment and Plan Carito Madison is a 30 y.o. female at 22w6d who presented with vaginal bleeding. VAGINAL BLEEDING/Spotting: -No e/o PTL. Wet Prep consistent with Patti. -No e/o abruption, no pain. ABD Benign/NT/soft. -No active bleeding. No Blood noted to vaginal vault on SSE - valsalva. No clots. -Cervix non ectropic. SVE: visually closed. -Known Placenta Previa on formal Us. -No recent intercourse -No hemorrhoids -Rh positive Reassured. Precautions reviewed. FWB: Doptone 138bpm Plan discussed with Dr. Riley/Birgit. Dispo home. F/u as scheduled. Strict return precautions. Received Diflucan prior to discharge home. Wendi Ivey NP 09/29/20 M Fellow Attestation I have discussed Carito Madison with Wendi Ivey on 09/30/2020. I have reviewed the treatment plan and recommendations. I agree with the findings and the plan of care as documented in the resident???s note with the following addendum: Briefly, this is a 30 y.o. at 23w0d who presented withone self resolved episode of vaginal bleeding in the setting of known placenta previa. Exam and vitals stable. Labs also stable. Discussed with patient that we typically recommend inpatient admissionfor observation for bleeding placenta previa given risk for additional bleeding. Patient adamant that she is unable to be admitted at this time due to admission threatening her employment status. Patient also with reliable to a nearby hospital and given strict return precautions if additional bleeding occurs. Alma Genao MD Maternal- Medicine Fellow Cosigned by Dilan Riley MD at 10/01/2020 11:05 AM CDT Associated attestation - Dilan Riley MD - 10/01/2020 11:05 AM CDT I have reviewed the above note for Carito Madison, and I agree with the documented plan by the resident/fellow/MEKHI. Dilan Riley MD 10/01/2020 documented in this encounter Nursing Notes * Katie Tai RN - 09/29/2020 3:04 PM CDT Patient received to [facility] with reports of vaginal bleeding with previa. Moderate amount of bleeding noted on photo provided by patient, but has since stopped. Patient reports movement with some abdominal cramping. [facility]/MD evaluation with labs. Patient discharged to home with [facility] precautions and follow up instructions. * Kendra Kraft RN - 09/29/2020 12:53 PM CDT Assumed care of patient from charge nurse. Patient complaining of bleeding around 11am. [facility] notified. Patient not having any bleeding at this time. documented in this encounter Miscellaneous Notes * Plan of Care - Kendra Kraft RN - 09/29/2020 1:06 PM CDT Problem: Lack of Knowledge: Goal: Knowledge of safety precautions will improve Outcome: Adequate for Discharge Goal: Ability to identify signs and symptoms will improve Outcome: Adequate for Discharge Goal: Verbalization of understanding the information provided will improve Outcome: Adequate for Discharge Problem: Fluid Volume: Goal: Ability to achieve a balanced intake and output will improve Outcome: Adequate for Discharge Goal: Will show no signs and symptoms of excessive bleeding Outcome: Adequate for Discharge Problem: Physical Regulation: Goal: Diagnostic test results will improve Outcome: Adequate for Discharge Goal: Hemodynamic stability will improve Outcome: Adequate for Discharge Goals: Summary: documented in this encounter Plan of Treatment Not on file documented as of this encounter Procedures Procedure Name Priority Date/Time Associated Diagnosis Comments APTT STAT 09/29/2020 1:45 PM CDT PROTIME-INR STAT 09/29/2020 1:45 PM CDT FIBRINOGEN STAT 09/29/2020 1:45 PM CDT CBC WITHOUT DIFFERENTIAL STAT 09/29/2020 1:45 PM CDT TYPE AND SCREEN STAT 09/29/2020 1:45 PM CDT POCT URINALYSIS DIPSTICK Routine 09/29/2020 12:53 PM CDT documented in this encounter Results * (ABNORMAL) Fibrinogen (09/29/2020 1:45 PM CDT) Fibrinogen 442(H) 170 - 400 mg/dL [facility] Blood specimen (specimen) 09/29/2020 1:45 PM CDT 09/29/2020 2:15 PM CDT [facility] Naima Ivey [facility] LAB BLOOD ORDERABLES Briana l Result Performing Organization Address [facility] Co de Phone Number [facility] Department [place] [address] * (ABNORMAL) aPTT (09/29/2020 1:45 PM CDT) Pathologist [facility] aPTT 22(L) 27 - 37 sec [facility] Comment: Interpretive Data Therapeutic heparin range: 60.0 - 94.0 seconds. Based on correlation with therapeutic heparin activity range of 0.3-0.7 Units/mL. Current interpretive data was last revised on 2020. Blood specimen (specimen) 09/29/2020 1:45 PM CDT 09/29/2020 2:15 PM CDT [facility] Naima Ivey NP LAB BLOOD ORDERABLES Briana l Result Performing Organization Address [facility] Co [place] [address] * Protime-INR (09/29/2020 1:45 PM CDT) Pathologist [facility] PT 10.5 9.5 - 13.6 sec [facility] INR 0.9 0.9 - 1.2 [facility] Comment: Interpretive data Oral anticoagulant therapeutic ranges: Venous thromboembolism prophylaxis or treatment: 2.0-3.0 CARDIOLOGY Standard range: 2.0-3.0 High-intensity range: 2.5-3.5 Refer to indication-specific guidelines for appropriate target ranges for prosthetic heart valve replacement. Current interpretive data was last revised on 2019. Blood specimen (specimen) 09/29/2020 1:45 PM CDT 09/29/2020 2:15 PM CDT [facility] CAren Quitman [facility] LAB BLOOD ORDERABLES Briana l Result Performing Organization Address City/[facility]/ZIP Co de Phone Number [facility] [place] [address] * Type and screen (09/29/2020 1:45 PM CDT) [facility] Jose Antonio, indirect Negative [facility] ABO Rh A Positive [facility] Comment:28 - Hemolyzed speci men Blood specimen (specimen) 09/29/2020 1:45 PM CDT 09/29/2020 2:13 PM CDT [facility] LAB BLOOD BANK TEST [place] [address] * (ABNORMAL) CBC without differential (09/29/2020 1:45 PM CDT) [facility] WBC 9.9 3.8 - 9.9 K/cumm [facility] Hgb 10.4(L) 11.9 - 15.5 g/dL [facility] Hct 30.7(L) 35.6 - 45.5 % [facility] Plt 316 150 - 400 K/cumm [facility] MPV 10.1 9.1 - 12.3 fL [facility] RBC 3.52(L) 3.90 - 5.20 M/cumm [facility] MCV 87.2 81.3 - 96.4 fL [facility] MCH 29.5 27.1 - 33.3 pg [facility] MCHC 33.9 32.3 - 35.7 g/dL [facility] RDW CV 14.6 11.1 - 14.9 % [facility] RDW SD 45.1 35.7 - 48.1 fL [facility] NRBC abs 0.00 0.00 - 0.01 K/cumm [facility] Blood specimen (specimen) 09/29/2020 1:45 PM CDT 09/29/2020 2:13 PM CDT [facility] Naima Ivey [facility] LAB BLOOD ORDERABLES Briana l Result [facility] Department [place] [address] * POCT urinalysis dipstick (09/29/2020 12:53 PM CDT) Color, Urine, POC Yellow Clarity, ur, POC Clear Clear Glucose, ur, POC Negative Negative mg/dL Bilirubin, ur, POC Negative Negative, Small, Moderate, Large Ketones, ur, POC Negative Negative Specific [place], POC 1.010 1.005 - 1.030 Blood, ur, POC Negative Negative pH, ur, POC 7.0 5.0 - 8.0 Protein, ur, POC Negative Negative Urobilinogen, urine, POC 0.2 0.2 - 1.0 mg/dL Nitrite, ur, POC Negative Negative Leukocytes, ur, POC Negative Negative Lot Number [id number] Urine 09/29/2020 12:5 3 PM CDT [facility] Naima Ivey NP POINT OF CARE TEST ORDERA BLES Final Result documented in this encounter Visit Diagnoses Not on filedocumented in this encounter Administered Medications Inactive Administered Medications - up to 3 most recent administrations Medication Order MAR Action Action Date Dose Rate Site fluconazole (DIFLUCAN) tablet 150 mg 150 mg, oral, Once, On Sun09/29/20 at 1530, For 1 dose, Indications: Vulvovaginal CandidiasisIndications:Vulvovagina l Candidiasis Given 09/29/2020 3:01 PM CDT 150 mg sodium chloride 0.9% flush 0.5-20 mL 0.5-20 mL, intra-catheter, Every 8 hours scheduled, First dose on Sun09/29/20 at 1415, Flush volume based on line type and size. sodium chloride 0.9% flush 0.5-20 mL 0.5-20 mL, intra-catheter, As needed, line care, Starting on Sun09/29/20 at 1338, Flush volume based on line type and size. Flush before and after each use. documented in this encounter Active and Recently Administered Medications Times are shown in CDT. Scheduled Medication Order 09/27/2020 09/28/2020 09/29/2020 fluconazole (DIFLUCAN) tablet 150 mg (COMPLETED) 150 mg, oral, Once, On Sun09/29/20 at 1530, For 1 dose, Indications: Vulvovaginal Candidiasis 1501 (Given - Provid er: Harriett Higuera RN) sodium chloride 0.9% flush 0.5-20 mL 0.5-20 mL, intra-catheter, Every 8 hours scheduled, First dose on Sun09/29/20 at 1415, Flush volume based on line type and size. 1415 (Due) PRN Medication Order 09/27/2020 09/28/2020 09/29/2020 sodium chloride 0.9% flush 0.5-20 mL 0.5-20 mL, intra-catheter, As needed, line care, Starting on Sun09/29/20 at 1338, Flush volume based on line type and size. Flush before and after each use. documented in this encounter Orders Medications Ordered That Omer ht Not Have Been Administered Count Last Ordered Date First Ordered Date sodium chloride 0.9% flush 0.5-20 mL 2 05/2020 Discharge Count Last Ordered Date First Orde red Date DISCHARGE PATIENT 1 09/29/2020 documented in this encounter Care Teams Distributor Of Directories Relationship Specialty [place] [address] [address] PCP - General 07/04/19 [place] [address] [address] [place] [address] 11/16/18 Ernie Shaw MD [address] [place] [address] [address] [place] [place] [address] Interior Design Teacher Obstetrics and Gynecology 06/10/20 documented as of this encounter
--- OUTSIDE RECORDS SUMMARY | 2024-02-24 20:06 | XMS_ITS | Encounter Summary ---
Author Organization [facility] Healthcare Address [address] [place] [address] Care Team Providers Care Pocket Flap Creasing Machine Operator Name Role Phone Huseyin Dangelo MD Unavailable [phone] Brian Mon MD Primary Care Provider + Ernie Shaw MD Unavailable [phone] Encounter Details Date Type Department Care Team (Late st Contact Info) Description 09/22/2020 1:15 PM CDT Lab [address] [id number] Sore throat Social History Tobacco Use Types [...] Miscellaneous Notes * Result Encounter Note - Shakir, Shi, MA - 09/24/2020 10:41 AM CDT Spoke to patient. * Result Encounter Note - Dayna Martinez NP - 09/24/2020 8:00 AM CDT Please alert patient of negative strep culture. Patient should continue Tylenol/Ibuprofen as directed for discomfort and f/u with PCP if symptoms persist. documented in this encounter Plan of Treatment Not on file documented as of this encounter Procedures Procedure Name Priority Date/Time Associated Diagnosis Comments THROAT CULTURE Routine 09/22/2020 9:59 AM CDT Sore throat documented in this encounter Results * Throat culture Throat (09/22/2020 9:59 AM CDT) Report Final Report: No growth of pathogens. ARPITA POLLARD Comment:Testing performed by : [facility], [address] [place] [address] Throat 09/22/2020 9:59 AM CDT 09/22/2020 3:56 PM CDT Narrative ARPITA POLLARD - 09/23/2020 11:47 PM CDT Testing performed by [facility] Microbiology Laboratory ([phone]). us Dayna Martinez NP LAB MICROBIOLOGY - GENERAL ORDERABLES Final Result [facility] POLLARD [address] Department [place] [address] documented in this encounter Visit Diagnoses Diagnosis Sore throat Acute pharyngitis documented in this encounter Care Teams Pocket Flap Creasing Machine Operator Relationship Specialty [place] [address] [address] [place] [address] PCP - General 07/04/19 [place] [address] [facility] [address] [place] [address] 11/16/18 Ernie Shaw MD [address] [facility] [address] [place] [address] Nutrition Teacher Obstetrics and Gynecology 06/10/20 documented as of this encounter
--- OUTSIDE RECORDS SUMMARY | 2024-02-24 20:06 | XMS_ITS | Encounter Summary ---
Author Organization [facility] [employer] of [facility] Address [address] [place] [address] Phone Care Team Providers Care Quiller Machine Fixer Name Role Phone Huseyin Dangelo MD Unavailable [phone] Brian Mon MD Primary Care Provider + Ernie Shaw MD Unavailable [phone] Encounter Details Date Type Department Care Team (Late st Contact Info) Description 09/24/2020 Orders Only [facility] Rheumatology [address] [facility] [address] [facility] 5th [place] [address] [place] [address] Carolina Delarosa MD [address] [facility] [address] [place], [place] [id number] Systemic lupus erythematosus, unspecified SLE type, unspecified [...] documented as of this encounter Results * C4 complement (09/24/2020 11:59 AM CDT) Complement C4 20 10 - 40 mg/dL ARPITA COUNTS INCLUDE 234 BEDS AT THE [facility] ([place]) Comment:Testing performed by : [facility], [address] [place] [address], [id number] Blood specimen (specimen) 09/24/2020 11:59 AM CDT 09/24/2020 2:17 PM CDT Carolina Delarosa MD LAB BLOOD ORDERABLES Final Result ARPITA MARTIN ([place]) 1 [facility] [place] [address] * C3 complement (09/24/2020 11:59 AM CDT) Pathologist [facility] Complement C3 148 90 - 180 mg/dL ARPITA MARTIN ([place]) Comment:Testing performed by : [facility], [address] [place] [address], [id number] Blood specimen (specimen) 09/24/2020 11:59 AM CDT 09/24/2020 2:17 PM CDT Carolina Delarosa MD LAB BLOOD ORDERABLES Final Result ARPITA MARTIN ([place]) 1 [facility] [place] [address] * (ABNORMAL) Erythrocyte sedimentation rate (09/24/2020 11:59 AM CDT) Erythrocyte sedimentation rate 48(H) 1 - 20 mm/hr AR[facility]ITA MARTIN ([place]) Blood specimen (specimen) 09/24/2020 11:59 AM CDT 09/24/2020 12:16 PM CDT Carolina Delarosa MD LAB BLOOD ORDERABLES Final Result ARPITA MARTIN ([place]) 1 [facility] [place] [address] * (ABNORMAL) CRP (acute phase) (09/24/2020 11:59 AM CDT) CRP 15.5(H) <=10.0 mg/L ARPITA [facility] ([place]) Blood specimen (specimen) 09/24/2020 11:59 AM CDT 09/24/2020 12:16 PM CDT Carolina Delarosa MD LAB BLOOD ORDERABLES Final Result Performing Organization Address City/[facility] Co de Phone Number ARPITA MARTIN ([place]) 1 [facility] [place] [address] * (ABNORMAL) Comprehensive metabolic panel (09/24/2020 11:59 AM CDT) Sodium 135 135 - 145 mmol/L [facility] ([place]) Potassium, pl 3.6 3.3 - 4.9 mmol/L [facility] ([place]) Chloride 102 97 - 110 mmol/L [facility] ([place]) CO2 21(L) 22 - 32 mmol/L [facility] ([place]) Anion gap 11 2 - 15 mmol/L [facility] ([place]) BUN 7(L) 8 - 25 mg/dL [facility] ([place]) Creatinine 0.40(L) 0.60 - 1.10 mg/dL [facility] ([place]) Glucose 100 70 - 199 mg/dL [facility] ([place]) Comment: Interpretive Data Fasting glucose >/= [...] interpretive data was last revised 2017. Calcium 8.6 8.5 - 10.3 mg/dL [facility] ([place]) Bilirubin, total 0.2 0.1 - 1.2 mg/dL [facility] ([place]) Protein, pl 6.3(L) 6.5 - 8.5 g/dL [facility] ([place]) Albumin 3.6 3.5 - 5.0 g/dL [facility] ([place]) Alk phos 59 40 - 130 Units/L [facility] ([place]) ALT 13 7 - 45 Units/L [facility] ([place]) AST 14 10 - 45 Units/L [facility] ([place]) Blood specimen (specimen) 09/24/2020 11:59 AM CDT 09/24/2020 12:16 PM CDT Carolina Delarosa MD LAB BLOOD ORDERABLES Final Result ARPITA MARTIN ([place]) 1 [facility] [place] [address] * Protein / creatinine ratio, urine, random (09/24/2020 11:44 AM CDT) Protein, ur, quant 20.0 mg/dL [facility] ([place]) Comment: Interpretive Data No reference range established. Current interpretive data was last revised 2018. Creatinine Ur 262.2 mg/dL [facility] ([place]) Comment: Interpretive Data No reference range established. Current interpretive data was last revised 2018. Protein/creatinin e ratio 76.3 0.0 - 180.0 mg/g CR [facility] ([place]) Urine 09/24/2020 11:4 4 AM CDT 09/24/2020 1:04 PM CDT us Carolina Prabir Sen MD LAB URINE ORDERABLES Final Result ARPITA MARTIN ([place]) 1 [facility] [place] [address] * (ABNORMAL) Urinalysis reflex to microscopic and culture Urine (09/24/2020 11:44 AM CDT) Color, ur Yellow Yellow [facility] ([place]) Clarity, ur Turbid(A) Clear [facility] ([place]) Specific gravity, ur 1.028(H) 1.010 - 1.025 [facility] ([place]) pH, [...] will be performed. [facility] ([place]) Urine 09/24/2020 11:4 4 AM CDT 09/24/2020 1:04 PM CDT Narrative [facility] ([place]) - 09/24/2020 1:08 PM CDT ?? Urine pH is affected by diet, medications, systemic acid-base disturbances, and renal tubular function. ??pH may affect urinary stone formation. ??For example, urine pH below 6.0 may help reduce the tendency for calcium phosphate stones and pH greater than 6.0 may reduce the tendency for uric acid stone formation. Source: Bycler. Last revised 03-08-2017 us Carolina Delarosa MD LAB MICROBIOLOGY - GENERAL ORDERABLES Final Result ARPITA MARTIN ([place]) 1 [facility] [place] [address] documented in this encounter Visit Diagnoses Diagnosis Systemic lupus erythematosus, unspecified SLE type, unspecified organ involvement status (HCC)- Primary Systemic lupus erythematosus, unspecified SLE type, unspecified organ involvement status (HCC) High risk medication use documented in this encounter Care Teams Quiller Machine Fixer Relationship Specialty [place] [address] [facility] [place] [address] PCP - General 07/04/19 [place] [address] [address] [place] [address] 11/16/18 Ernie Shaw MD [address] [place] [address] [address] [place] [address] Concrete Paving Machine Operator Obstetrics and Gynecology 06/10/20 documented as of this encounter
--- OUTSIDE RECORDS SUMMARY | 2024-02-24 20:06 | XMS_ITS | Encounter Summary ---
Author Organization [facility] Address [address] [place] [address] Care Team Providers Care Crepe Sole Scourer Name Role Phone Huseyin Dangelo MD Unavailable [phone] Brian Mon MD Primary Care Provider + Ernie Shaw MD Unavailable [phone] Encounter Details Date Type Department Care Team (Late st Contact Info) Description 09/23/2020 6:28 AM CDT - 09/23/2020 8:32 AM CDT Hospital Encounter [facility] [address] [place] [address] Najma Mcclain MD [address] [place] [address] Discharge Disposition: Discharge to home or self [...] Sign Reading Time Taken Comments Blood Pressure 117/79 09/23/2020 8:18 AM CDT Pulse 83 09/23/2020 8:29 AM CDT Temperature 36.8 ??C (98.3 ??F) 09/23/2020 6:45 AM CD T Respiratory Rate 18 09/23/2020 6:45 AM CDT Oxygen Saturation 100% 09/23/2020 8:29 AM CDT Inhaled Oxygen Concentration - - Weight 81.6 kg (180 lb) 09/23/2020 6:45 AM CDT Height 157.5 cm (5' 2 ) 09/23/2020 6:45 AM CDT Body Mass Index 32.92 09/23/2020 6:45 AM CDT documented in this encounter Discharge Diagnoses Diagnosis Encounter for supervision of normal , unspecified, unspecified trimester - ENCOUNTER FOR SUPERVISION OF NORMAL , UNSPECIFIED, UNSPECIFIED TRIMESTER documented in this encounter Discharge Instructions * Attachments The following attachments cannot be sent through Care Everywhere. * at 19 to 22 Weeks (General Information) (New Zealander) documented in this encounter Medications at Time of Discharge aspirin 81 mg enteric coated tablet Take 81 mg by mouth daily 1 azaTHIOprine (IMURAN) 50 mg tabletIndications:S ystemic lupus erythematosus, unspecified SLE type, unspecified organ involvement status (HCC),High risk medication use Take 1 tablet (50 mg total) by mouth daily 30 tablet 1 09/20/2020 1 ferrous gluconate 324 mg (38 mg of elemental iron) tabletIndications:I anila deficiency TAKE 1 TABLET BY MOUTH THREE [...] mg by mouth daily 06/21/2019 1 ondansetron (ZOFRAN) 4 mg tablet Take 1 tablet (4 mg total) by mouth every 8 (eight) hours as needed for nausea or vomiting 20 tablet 10/03/2019 1 ondansetron ODT (ZOFRAN-ODT) 8 mg disintegrating tablet Dissolve 1 tablet on top of tongue then swallow with saliva every 8 hours as needed for nausea or vomiting 08/16/2020 1 polyethylene glycol (MIRALAX) 17 gram/dose powder Take 17 g by mouth 2 (two) times a day 08/24/2020 1 predniSONE (DELTASONE) 1 mg tablet prednisone 1 mg tablet TAKE 1 TABLET BY MOUTH EVERY DAY 1 predniSONE (DELTASONE) 5 mg tablet TAKE 2 TABLETS(10 MG) BY MOUTH DAILY 60 tablet 08/09/2020 1 progesterone (PROMETRIUM) 200 mg capsule Take by mouth daily 06/01/2020 1 sertraline (ZOLOFT) 50 mg tablet Take 1.5 tablets (75 mg total) by mouth daily 45 tablet 2 08/12/2020 1 valACYclovir (VALTREX) 500 mg tablet TAKE 1 TAB BY MOUTH 3 TIMES DAILY FOR 7 DAYS. 12/03/2019 1 documented as of this encounter Discharge Disposition Disposition Code Departure Means Destination Discharge to home or self care documented in this encounter Nursing Notes * Lidia Santiago RN - 09/23/2020 8:45 AM CDT Pt reports to L&D with c/o headache, nausea, feeling flush, abd pain that radiates to her back,and rash. Reports she started taking a new medication for her lupus and had a similar reaction whentaking it in the past. Pt placed on EFM. Labs: UA obtained. Dr. Mcclain notified, pt reports all complaints have resolved while here. Pt advised to establish her care with one facility and speak with her tag clerk. Orders received for D/C. Follow up and D/C instructions review with pt, no questions or concerns at this time and verbalizes d/c instructions. Ambulates out of L&D with no apparent distress. VSS. .Lidia Santiago RN documented in this encounter Plan of Treatment Not on file documented as of this encounter Procedures Procedure Name Priority Date/Time Associated Diagnosis Comments URINALYSIS AND REFLEX TO MICROSCOPIC AND CULTURE STAT 09/23/2020 6:58 AM CDT documented in this encounter Results * (ABNORMAL) Urinalysis reflex to microscopic and culture Urine, clean voided (09/23/2020 6:58 AM CDT) Color, ur Yellow Yellow [facility] ([place]) Clarity, ur Turbid(A) Clear [facility] ([place]) Specific gravity, ur 1.019 1.010 - 1.025 [facility] ([place]) pH, urine 5.5 [facility] ([place]) Protein, ur ql Trace Negative [facility] ([place]) Glucose, ur ql [...] and culture not met. [facility] ([place]) Urine, clean voided 09/23/2020 6:58 AM CDT 09/23/2020 7:07 AM CDT Narrative [facility] ([place]) - 09/23/2020 7:15 AM CDT ?? Urine pH is affected by diet, medications, systemic acid-base disturbances, and renal tubular function. ??pH may affect urinary stone formation. ??For example, urine pH below 6.0 may help reduce the tendency for calcium phosphate stones and pH greater than 6.0 may reduce the tendency for uric acid stone formation. Source: [employer]. Last revised 03-08-2017 Najma Mcclain MD LAB MICROBIOLOGY - GE NERAL ORDERABLES Final Result [facility] ([place]) 1 [facility] [place] [address] documented in this encounter Visit Diagnoses Not on filedocumented in this encounter Care Teams Crepe Sole Scourer Relationship Specialty [place] [address] [address] [facility] [place] [address] PCP - General 07/04/19 [place] [address] [address] [facility] [place] [address] 11/16/18 Ernie Shaw MD [address] [facility] [address] [address] [place] [address] Education Intern Obstetrics and Gynecology 06/10/20 documented as of this encounter
--- OUTSIDE RECORDS SUMMARY | 2024-02-24 20:06 | XMS_ITS | Encounter Summary ---
Author Organization [facility] [employer] [facility] Address [address] [place] [address] Phone Care Team Providers Care Supervisor Poultry Hatchery Name Role Phone Huseyin Dangelo MD Unavailable [phone] Brian Mon MD Primary Care Provider + Ernie Shaw MD Unavailable [phone] Reason for Visit * Reason Onset Date Comments bleeding with previa 09/29/2020 Encounter Details Date Type Department Care Team (Late st Contact Info) Description 09/29/2020 Telephone [facility] Maternal- Medicine [address] [facility] 7th [address] [place] [address] Fariba Chin RN bleeding with previa Social History Tobacco Use Types Packs/Day [...] Telephone Encounter - Fariba Chin RN - 09/29/2020 11:42 AM CDT Carito sent a message through my chart and then called. She states she had some bleeding when sheused the restroom. She is a known previa. She sent a picture of the toilet which had a moderate about of bright red blood in it. I asked if the bleeding and slowed down and she said yes. It was very weird. I went to the bathroom and it happened. She denies pain and cramping. Dr. Shukla viewed the photo as well. We both recommended she come the [facility] for evaluation. * Telephone Encounter - Fariba Chin RN - 09/29/2020 11:42 AM CDT ----- Message from Carito Madison sent at 09/29/2020 11:37 AM CDT ----- Regarding: RE: classes Contact: So I had a bleed attached is what it looks like but I haven't anymore should I go in or am I ok? ----- Message ----- From: Nurse Fariba Hicks Sent: 09/06/20, 11:36 AM To: Carito Madison Subject: RE: classes That sounds like a plan. Thank you for the update. Fariba Chin RN ----- Message ----- From:Carito Madison Sent:09/06/2020 11:35 AM CDT To:Nurse Leti Lopez Subject:RE: classes Maude Ames I'm going to [facility] now ----- Message ----- From:Nurse Leti Lopez Sent:08/26/2020 2:52 PM CDT To:Carito Madison Subject:classes Free Online Resources and : Free ???Labor with Confidence?? Class: https://www.StarChase/sijuaq-vbsiigs-fvzprk This free 9-part series, led by clinical childbirth experts, provides in-depth information for new parents on all stages of the childbirth journey: https://get.VoxPop [employer].Align Technology/en-us/fvowmcogny-rggbqwuva-kicdvj This FREE comprehensive class will cover all aspects of and includes a free printable PDF workbook: https://www.mother.ly/classes/welcome- [employer]'s online class is a special series of short videos that explain what labor is, what can happen during labor, and important things to know and decide ahead of time. You'll also learn about effective ways to manage labor pain: https://www.Zervant/childbirth-class This website offers free video clips and print materials that will educate and inform you on how tohave the you want for you and your baby: https://mothersadvocate.org/index.htm (available in [place] and [place]e) Lots of printable information and resources: http://www.childbirthconnection.org/ Online Stories: [place] - https://www.Arcarios/learn/course/lejcdokfmskpr-gqwow-rkdhbby-videos/marie h-stories/introduction Sen[place]alese - https://www.Arcarios/learn/course/uugtt-ar-engg-wa-xuhhiiyilfa-ac-parto-p r-cb-ca-sp-copy/eeefotckh-gp-vowpkx/introduccin : a is a natural, usually wonderful, experience for both mother and baby. Getting started with , though, does not always come naturally. There is a lot to learn: https ://med.trinity.edu/newborns/professional-education/.html Diana Ac Online support and resources: https://lllusa.org/bfinfo/ Education: https://www.ameda.com/kcgm-767-rzznxfsd/trujoc-zjzqjut-wqsfzyuoy/ If you have a Medela pump and you register that pump online, you'll get a code to access their University for free: https://www.[facility].//services/-university DISara aims to empower mothers through informational videos to help them overcome basic challenges: https://www.UrbanBuz.com/c/DIYbreastfeeding/playlists Tour: https://www.[facility]on[facility].org/Medical-Services/Women-Infants/-Childbirth /Nmpgysrwt-kuw-Wuuga-Delivery/Iihcnxhbs-Gtguxbemvf-Boczpwy-Qlmqkb-Fraklrck-Npekr documented in this encounter Plan of Treatment Not on file documented as of this encounter Visit Diagnoses Not on filedocumented in this encounter Care Teams Supervisor Poultry Hatchery Relationship Specialty [place] [address] [address] [place] [address] PCP - General 07/04/19 [place] [address] [address] [place] [address] 11/16/18 Ernie Shaw MD [address] [place] [address] [address] [place] [address] Buzzsaw Operator Helper Obstetrics and Gynecology 06/10/20 documented as of this encounter
--- OUTSIDE RECORDS SUMMARY | 2024-02-24 20:06 | XMS_ITS | Encounter Summary ---
Author Organization [facility] Healthcare Address [address] [place] [address] Care Team Providers Care Cell Installer Name Role Phone Huseyin Dangelo MD Unavailable [phone] Brian Mon MD Primary Care Provider + Ernie Shaw MD Unavailable [phone] Reason for Visit * Reason Comments Abdominal Cramping x1 week Pt states chris may was seen at [facility] Sunday and they did nothing . Pt sent urine specimen at corrections caseworker office today. Shortness of Breath Pt states when she w alks but not all the time. Problem Pt states she has hy peremesis, placenta previa. Reports decreased appetite. Reports she can keep a bagel and water down. Encounter Details Date Type Department Care Team (Latest Contact Info) Description 09/24/2020 6:50 PM CDT - 09/24/2020 9:20 PM CDT Hospital Encounter [address] [id number] Dilan Riley MD [address] [facility] [phone] [place] [address] Discharge Disposition: Discharge to home or self [...] Sign Reading Time Taken Comments Blood Pressure 128/76 09/24/2020 6:56 PM CDT Pulse 86 09/24/2020 6:59 PM CDT Temperature 36.8 ??C (98.2 ??F) 09/24/2020 6:56 PM CD T Respiratory Rate 18 09/24/2020 6:56 PM CDT Oxygen Saturation 100% 09/24/2020 6:56 PM CDT Inhaled Oxygen Concentration - - Weight - - Height - - Body Mass Index - - documented in this encounter Discharge Diagnoses Diagnosis Other specified diseases and conditions complicating - OTHER SPECIFIED DISEASES AND CONDITIONS COMPLICATING Lower abdominal pain, unspecified - LOWER ABDOMINAL PAIN, UNSPECIFIED Rheumatoid arthritis, unspecified (HCC) - RHEUMATOID ARTHRITIS, UNSPECIFIED Systemic lupus erythematosus, unspecified (HCC) - SYSTEMIC LUPUS ERYTHEMATOSUS, UNSPECIFIED Fibromyalgia - FIBROMYALGIA Unspecified myalgia and myositis Chronic kidney disease, unspecified - CHRONIC KIDNEY DISEASE, UNSPECIFIED Contact with and (suspected) exposure to covid-19 - CONTACT WITH AND (SUSPECTED) EXPOSURE TO COVID-19 Diseases of the respiratory system complicating , second trimester - DISEASES OF THE RESPIRATORY SYSTEM COMPLICATING , SECOND TRIMESTER Shortness of breath - SHORTNESS OF BREATH Unspecified asthma, uncomplicated - UNSPECIFIED ASTHMA, UNCOMPLICATED Other mental disorders complicating , second trimester - OTHER MENTAL DISORDERS COMPLICATING , SECOND TRIMESTER Anxiety disorder, unspecified - ANXIETY DISORDER, UNSPECIFIED Major depressive disorder, single episode, unspecified - MAJOR DEPRESSIVE DISORDER, SINGLE EPISODE, UNSPECIFIED Diseases of the nervous system complicating , second trimester - DISEASES OF THE NERVOUS SYSTEM COMPLICATING , SECOND TRIMESTER Epilepsy, unspecified, not intractable, without status epilepticus (HCC) - EPILEPSY, UNSPECIFIED, NOT INTRACTABLE, WITHOUT STATUS EPILEPTICUS 22 weeks gestation of - 22 WEEKS GESTATION OF Other termite treater (current) drug therapy - OTHER GELATIN MAKER UTILITY (CURRENT) DRUG THERAPY termite exterminator (current) use of aspirin - GELATIN MAKER UTILITY (CURRENT) USE OF ASPIRIN Allergy status to other drugs, medicaments and biological substances - ALLERGY STATUS TO OTHER DRUGS, MEDICAMENTS AND BIOLOGICAL SUBSTANCES Allergy status to penicillin - ALLERGY STATUS TO PENICILLIN Allergy status to other antibiotic agents - ALLERGY STATUS TO OTHER ANTIBIOTIC AGENTS Personal history of nicotine dependence - PERSONAL HISTORY OF NICOTINE DEPENDENCE documented in this encounter Discharge Instructions * Attachments The following attachments cannot be sent through Care Everywhere. * Urinary Tract Infection in (AfterCare(R) Instructions(ER/ED)) (Guinean) documented in this encounter Medications at Time [...] DAILY 60 tablet 08/09/2020 1 sertraline (ZOLOFT) 50 mg tablet Take [...] in this encounter H&P Notes * Margarita Marie MD - 09/24/2020 7:00 PM CDT Obstetrics H&P Chief Complaint: Abdominal cramping and pressure x 1 week, SOB Estimated Date of Delivery: 01/27/21 Provider: RENETTA HPI: Carito Madison is a 30 y.o. female at 22w1d gestation, dated by 1st trimester ultrasound who presents with multiple complaints. She has had abdominal cramping and pressure for 1 week. She has been evaluated for this but was notsatisfied because they did not do an ultrasound. She reports constant lower abdominal pressure. She reports SOB with activity like walking. She stated I just felt like I have covid, I have not gotten out of bed since Sunday. I had body aches and thought I had covid . She also reports having somenausea and vomiting but attributes this to her normal patterns of nausea and vomiting this . She had negative covid and flu swabs on 09/22/20 Her is complicated by Lupus, [place]'s disease, placenta previa with marginal cord insertion, severe anxiety- on Zoloft, carpal tunnel, epilepsy, GERD, Fibromyalgia, Rheumatoid Arthritis, Patient Denies: [x] Contractions [] Shortness of Breath [] Nausea/Vomitting [x] Vaginal Bleeding [x] Headache [] Abdominal Pain [x] Leaking of Fluid [x] Visual changes [x] Decreased Movement OB History Para Term AB Living 3 0 0 0 2 0 SAB TAB Ectopic Multiple Live Births 2 0 0 0 0 # Outcome Date GA Lbr Rojas/2nd Weight Sex Delivery Anes PTL Lv 3 Current 2 [address] History: No LMP recorded (lmp unknown). Patient is . History of Abnormal Pap: None STD History: none Past Medical History: Diagnosis Date Anemia Anxiety Asthma Chronic diarrhea Chronic kidney disease Depression Headache, tension-type Lupus (CMS/HCC) (HCC) PONV (postoperative nausea and vomiting) 07/13/2015 Rheumatoid arthritis (HCC) Seizures (CMS/HCC) (HCC) Chronic hypertension: No Diabetes: No Asthma: No Past Surgical History: Procedure Laterality Date APPENDECTOMY [...] Smoker Quit date: 12/28/2018 Years since quittin.7 Smokeless tobacco: Never Used Vaping Use Vaping Use: Never used Substance and Sexual Activity Alcohol use: Yes Comment: occasionally Drug use: Not Currently Types: Marijuana Sexual activity: Yes Partners: Male Support System: Supported by spouse Safe at home: Yes family history includes [...] and Syncope Syncope Penicillins Hives and Rash Amoxicillin Rash Escitalopram Other (See comments) and Rash [...] mg tablet valACYclovir (VALTREX) 500 mg tablet azaTHIOprine (IMURAN) 50 mg tablet ondansetron (ZOFRAN) 4 mg tablet predniSONE (DELTASONE) 1 mg tablet progesterone (PROMETRIUM) 200 mg capsule Review of Sys: General: No fever, chills, weight loss, night sweats, weakness. No recent trauma. HEENT: No headache, vision changes, pain or discharge. Cardiac: No chest pain or palpitations Pulmonary: No cough or wheezing. POSITIVE SOB Abdomen: POS vomiting and pain. No diarrhea or constipation. Urinary: No dysuria, urgency, or frequency. [address]: No vaginal bleeding, discharge, or loss of fluid. Vitals: Temp: [36.8 ??C (98.2 ??F)] 36.8 ??C (98.2 ??F) Pulse: [76-87] 86 Resp: [18] 18 BP: (128)/(76) 128/76 Physical Exam: General: awake, alert, oriented, in no acute distress, well developed, well nourished and anxious affect Head: Not examined Cardiovascular: Regular rate and rhythm Capillary refill brisk. Pulmonary: no respiratory distress or tachypnea, normal breath sounds to auscultation, no wheezing,no crackles Abdomen: Gravid, non-tender. No masses. No guarding or rebound tenderness. Extremities: Warm and well perfused.No lower extremity edema present. Speculum Exam: No pooling, no bleeding. Normal physiologic discharge of . Cervix pink, without lesions or irritation. Visually closed, long, and posterior. Monitoring: Doptones 140s Ultrasound: Breech presentation Positive movement, subjectively normal fluid Labs: Lab Results Component Value Date ABORH A Positive 08/02/2020 IDCOOMB Negative ABSC 08/02/2020 Urine dip: Lab Results Component Value Date COLORU Yellow 09/24/2020 CLARITYU Cloudy (A) 09/24/2020 SPECGRAVU 1.030 09/24/2020 SUSAN 6.0 09/24/2020 GLUCOSEUR Negative 09/24/2020 KETONESU Negative 09/24/2020 PROTUR Negative 09/24/2020 POCURNITRITE Negative 09/24/2020 LEUKOCYTESUR Negative 09/24/2020 Labs: Lab Results Component Value Date WBC 9.9 09/24/2020 HGB 10.2 (L) 09/24/2020 HCT 30.8 (L) 09/24/2020 MCV 87.7 09/24/2020 LABPLAT 287 09/24/2020 Lab Results Component Value Date GLUCOSE 100 09/24/2020 CALCIUM 8.6 09/24/2020 SODIUM 135 09/24/2020 POTASSIUM 3.6 09/24/2020 CO2 21 (L) 09/24/2020 CHLORIDE 102 09/24/2020 BUNSER 7 (L) 09/24/2020 CREATININE 0.40 (L) 09/24/2020 Lab Results Component Value Date ALT 13 09/24/2020 AST 14 09/24/2020 ALKPHOS 59 09/24/2020 BILITOT 0.2 09/24/2020 No results found for: URICACID No results found for: AMYLASE Lab Results Component Value Date LIPASE 44 07/21/2019 Assessment and Plan # Carito Madison is a 30 y.o. female at 22w1d who presented with lower abdominal cramping and pressure. 1. 30 y.o. at 22w1d gestation - wellbeing: + Doptones, + movement visualized 2. Abdominal pressure, cramping - toco with no evidence of ctx. Uterine tone soft. No ctx palpated or reported during exam. - cervix visually closed, long, and posterior. No bleeding. No evidence of PTL. - urine culture pending from outside provider. Keflex Rx'd but she has not picked up the medicationyet. Encouraged to pick it up in the am and take as prescribed. 3. SOB - no cough. Lung sounds CTA. O2 sats 98-100%. Negative COVID swab 2 days ago. - repeat swab sent due to increased concern from pt 4. Nausea/vomiting - no issues this evening. - tolerating PO. CMP from OSH today was WNL 5. Anxiety - feels better on Zoloft but reports continued anxiety - reassured by exam findings and reports feeling better about everything Plan discussed with Dr. Marie. Discharged home ambulatory in stable condition. Tricia Becerra CNM 09/24/20 I have reviewed and agree with the above documentation. Margarita Marie MD documented in this encounter Nursing Notes * Remedios Middleton RN - 09/24/2020 10:37 PM CDT Patient presented to [facility] from home complaining of lower abdominal pressure and pain, SOB with walking, body aches feels like I have COVID , and nausea and vomiting but states she has had it throughout . +FM, denies VB or LOF EFM & TOCO applied. VS WNL, Urine Dip0 SG 1.030 Pt presents with multiple complaints. She states she has been to another hospital and they did notdo anything . She reports having a rapid swab by [facility] but she is concerned it might be a false negative. She states she has had a UTI and sent a urine specimen at her corrections caseworker's office today. She reports nausea and vomiting throughout and states all she can keep down is a bagel and water (no ketones present on urine dip). COVID/Repiratory swab sent. HARPREET Beecrra assessed. FHR: 140s No contractions on TOCO Discharged home in stable condition with UTI reference. Follow up appointment 09/27/2020. 09/24/2020 Remedios Middleton RN documented in this encounter Plan of Treatment Not on file documented as of this encounter Procedures Procedure Name Priority Date/Time Associated Diagnosis Comments POCT URINALYSIS DIPSTICK Routine 09/24/2020 7:56 PM CDT RESPIRATORY PATHOGEN PANEL Routine 09/24/2020 7:34 PM CDT documented in this encounter Results * (ABNORMAL) POCT urinalysis dipstick (09/24/2020 7:56 PM CDT) [facility] Color, Urine, POC Yellow Clarity, ur, POC Cloudy(A) Clear Glucose, ur, POC Negative Negative mg/dL Bilirubin, ur, POC Negative Negative, Small, Moderate, Large Ketones, ur, POC Negative Negative Specific [place], POC 1.030 1.005 - 1.030 Blood, ur, POC Negative Negative pH, ur, POC 6.0 5.0 - 8.0 Protein, ur, POC Negative Negative Urobilinogen, urine, POC 0.2 0.2 - 1.0 mg/dL Nitrite, ur, POC Negative Negative Leukocytes, ur, POC Negative Negative Lot Number [id number] Urine 09/24/2020 7:56 PM CDT Tricia Becerra CN POINT OF CARE TEST ORDERA BLES Final Result * Respiratory pathogen panel Nasopharyngeal (09/24/2020 7:34 PM CDT) [facility] Influenza A RNA Not Detected Not Detected [facility] Influenza B RNA Not Detected Not Detected [facility] RSV RNA Not Detected Not Detected [facility] COVID-19 RNA Not Detected Not Detected [facility] Coronavirus 229E RNA Not Detected Not Detected [facility] Coronavirus HKU1 RNA Not Detected Not Detected [facility] Coronavirus NL63 RNA Not Detected Not Detected [facility] Coronavirus OC43 RNA Not Detected Not Detected [facility] Adenovirus DNA Not Detected Not Detected [facility] Metapneumovirus RNA Not Detected Not Detected [facility] Rhinovirus/Enterov irus RNA Not Detected Not Detected [facility] Parainfluenza 1 RNA Not Detected Not Detected [facility] Parainfluenza 2 RNA Not Detected Not Detected [facility] Parainfluenza 3 RNA Not Detected Not Detected [facility] Parainfluenza 4 RNA Not Detected Not Detected [facility] B. pertussis DNA Not Detected Not Detected [facility] B. parapertussis DNA Not Detected Not Detected [facility] C. pneumoniae DNA Not Detected Not Detected [facility] M. pneumoniae DNA Not Detected Not Detected [facility] Comment: Interpretive Data The [employer] FilmArray Respiratory Panel (RP2.1) assay is a [...] assay has FDA clearance for testing of ORE GRADER swabs. ??The performance characteristics of this assay have been determined by [facility]. Current interpretive data was last revised on 2020. Employeed in healthcare? No ARPITA MORAN status? Yes [facility] Group care resident? No [facility] Hospitalized? Yes [facility] Is patient in ICU? No [facility] Symptomatic as defined by CDC? Yes [facility] Nasopharyngeal 09/24/2020 7: 34 PM CDT 09/24/2020 8:58 PM CDT Narrative ARPITA MORAN - 09/24/2020 10:07 PM CDT Date of Symptom Onset->09/22/20 Reason for testing?->Symptomatic (not immunocompromised) Known exposure to confirmed or suspected COVID-19 case?->No Surveillance testing for transplant patient?->No Tricia Felixh Hernan [facility] MICROBIOLOGY - GENERA L ORDERABLES Final Result [facility] [place] [address] documented in this encounter Visit Diagnoses Not on filedocumented in this encounter Discontinued Medications Medication Sig Discontinue Reason Start Date End Da te progesterone (PROMETRIUM) 200 mg capsule Take by mouth daily Therapy completed 06/01/2020 09/24/2020 predniSONE (DELTASONE) 1 mg tablet prednisone 1 mg tablet TAKE 1 TABLET BY MOUTH EVERY DAY Therapy completed 09/24/2020 ondansetron (ZOFRAN) 4 mg tablet Take 1 tablet (4 mg total) by mouth every 8 (eight) hours as needed for nausea or vomiting Therapy completed 10/03/2019 09/24/2020 azaTHIOprine (IMURAN) 50 mg tabletIndications:Syste marie lupus erythematosus, unspecified SLE type, unspecified organ involvement status (HCC),High risk medication use Take 1 tablet (50 mg total) by mouth daily Therapy completed 09/20/2020 09/24/2020 documented as of this encounter Additional Health Concerns Infection Onset Date Last Indicated Resolved Time COVID: Suspected 09/24/2020 09/24/2020 09/24/2020 10:08 PM CDT documented as of this encounter Care Teams Cell Installer Relationship Specialty [place] [id number] [facility] [address] [place] [address] PCP - General 07/04/19 [place] [id number] [address] [place] [address] 11/16/18 Ernie Shaw MD [address] [place] [address] [address] [place] [address] [employer] Installer Obstetrics and Gynecology 06/10/20 documented as of this encounter
--- OUTSIDE RECORDS SUMMARY | 2024-02-24 20:06 | XMS_ITS | Encounter Summary ---
Author Organization [facility] [email or web address] of [facility] Address [address] [place] [address] Phone Care Team Providers Care Special Education Teachers Name Role Phone Huseyin Dangelo MD Unavailable [phone] Brian Mon MD Primary Care Provider + Ernie Shaw MD Unavailable [phone] Encounter Details Date Type Department Care Team (Late st Contact Info) Description 10/04/2020 1:40 PM CDT Office Visit [facility] Rheumatology [address] [facility] Medical Office Building 2 [address] [place] [address] Carolina Delarosa MD [address] [place] [address] Other systemic lupus erythematosus with other organ involvement (HCC) (Primary Dx); Supervision of high-risk , [...] Sign Reading Time Taken Comments Blood Pressure 113/72 10/04/2020 1:23 PM CDT Pulse 86 10/04/2020 1:23 PM CDT Temperature 36.6 ??C (97.9 ??F) 10/04/2020 1:23 PM CD T Respiratory Rate - - Oxygen Saturation - - Inhaled Oxygen Concentration - - Weight 82 kg (180 lb 11.2 oz) 10/04/2020 1:23 PM CDT Height 160 cm (5' 3 ) 10/04/2020 1:23 PM CDT Body Mass Index 32.01 10/04/2020 1:23 PM CDT documented in this encounter Progress Notes * Carolina Delarosa MD - 10/04/2020 1:40 PM CDT PATIENT NAME: Carito Madison : 1990 10/04/2020 HISTORY OF PRESENT ILLNESS: ia a 30 [...] She also has a positive double-stranded DNA, [employer] antibody and a low C4 and C3 [...] She is doing well. She is a 24 weeks . She is currently on hydroxychloroquine 400 mg a day and prednisone 5 mg a day. She did try azathioprine for 2 days but then developed hives with this and stop. We did of full set of lupus serologies in August and although she had elevated inflammatory markers her double-stranded DNA was negative and a complements were normal. . Her last Benlysta was April 2020. She has established with [facility] ALLERGIES: Allergies Allergen Reactions ??? Macrobid [Nitrofurantoin Monohyd/M-Cryst] Rash and Blisters Rash and Blisters in her mouth. ??? Methylprednisolone Anaphylaxis and Syncope Syncope ??? Penicillins Hives and Rash ??? Amoxicillin Rash ??? Azathioprine Hives ??? Escitalopram Other (See comments) and Rash Caused seizures Caused seizures Caused seizures ??? Reglan [Metoclopramide] Dizziness ??? Sulfamethoxazole-Trimethoprim Other (See comments) Cannot take bactrim because of lupus ??? Venlafaxine Itching CURRENT MEDICATION: Current Outpatient Medications: ??? aspirin 81 mg enteric coated tablet, Take 81 mg by mouth daily, Disp: , Rfl: ??? clobetasoL (TEMOVATE) 0.05 % ointment, Apply topically 2 (two) times a day, Disp: 30 g, Rfl: 1 ??? fluconazole (DIFLUCAN) 150 mg tablet, , Disp: , Rfl: ??? hydrOXYchloroQUINE (PLAQUENIL) 200 mg tablet, Take 2 tablets (400 mg total) by mouth daily, Disp: 60 tablet, Rfl: 5 ??? multivitamin capsule, Take 1 capsule by mouth daily , Disp: , Rfl: ??? nitrofurantoin monohydrate (MACROBID) 100 mg capsule, Take 1 capsule (100 mg total) by mouth 2 (two) times a day, Disp: 14 capsule, Rfl: 0 ??? omeprazole (PriLOSEC) 20 mg capsule, Take 20 mg by mouth daily , Disp: , Rfl: ??? ondansetron ODT (ZOFRAN-ODT) 8 mg disintegrating tablet, Dissolve 1 tablet on top of tongue then swallow with saliva every 8 hours as needed for nausea or vomiting, Disp: , Rfl: ??? polyethylene glycol (MIRALAX) 17 gram/dose powder, Take 17 g by mouth 2 (two) times a day, Disp: , Rfl: ??? predniSONE (DELTASONE) 5 mg tablet, TAKE 2 TABLETS(10 MG) BY MOUTH DAILY, Disp: 60 tablet, Rfl:0 ??? sertraline (ZOLOFT) 50 mg tablet, Take 1.5 tablets (75 mg total) by mouth daily, Disp: 45 tablet, Rfl: 2 ??? ferrous gluconate 324 mg (38 mg of elemental iron) tablet, TAKE 1 TABLET BY MOUTH THREE TIMES ADAY (Patient not taking: Reported on 06/22/2020), Disp: 90 tablet, Rfl: 2 ??? valACYclovir (VALTREX) 500 mg tablet, TAKE 1 TAB BY MOUTH 3 TIMES DAILY FOR 7 DAYS. (Patient not taking: Reported on 10/04/2020), Disp: , Rfl: PHYSICAL EXAM: Vitals BP 113/72 Pulse 86 Temp 36.6 ??C (97.9 ??F) Ht 160 cm (5' 3 ) Wt 82 kg (180 lb 11.2 oz) LMP (LMP Unknown) BMI 32.01 kg/m?? Physical Exam Not performed LABORATORY DATA: Lab Results Component Value Date WBC 9.9 09/29/2020 HGB 10.4 (L) 09/29/2020 HCT 30.7 (L) 09/29/2020 MCV 87.2 09/29/2020 LABPLAT 316 09/29/2020 Lab Results Component Value Date AST 14 09/24/2020 ALT 13 09/24/2020 CREATININE 0.40 (L) 09/24/2020 Lab Results Component Value Date SEDRATE 48 (H) 09/24/2020 Lab Results Component Value Date CRP 15.5 (H) 09/24/2020 ASSESSMENT AND PLAN: SLE In conclusion this is a 29-year-old female with a diagnosis of lupus. At this point she is at 24 weeks. In another 4 weeks she should be in a good place as far as it pertains to viability. She certainly has done very well through the so far. Atthis point we will just continue her on hydroxychloroquine 400 mg daily and prednisone 5 mg a day. I would like to get her on Benlysta as soon as possible, at this point she does plan to breast-feed and we decided that we will wait until she flares or start Benlysta 4-6 months . Eventually will have to reduce her hydroxychloroquine dose as she is somewhat higher than weight based but we will wait to do this about 4-6 months after she has delivered. Since she has adrenal is insufficiency she will probably require stress dose steroids around her She is aware about the high risk for preeclampsia, and labor We will plan to see her in November and get a full set of serologies at the time DISPOSITION: The patient will return follow up in 2 months Carolina Delarosa MD documented in this encounter Plan of Treatment Not on file documented as of this encounter Results * C4 complement (10/07/2020 4:54 PM CDT) Complement C4 21 10 - 40 mg/dL [facility]) Comment:Testing performed by : [facility], [address] [place] [address], [facility], [address] Blood specimen (specimen) 10/07/2020 4:54 PM CDT 10/08/2020 10:08 AM CDT us Carolina Delarosa MD LAB BLOOD ORDERABLES Final Result [facility]ITA [facility]) 1 [facility] Department [place] [address] * (ABNORMAL) Erythrocyte sedimentation rate (10/07/2020 4:54 PM CDT) Erythrocyte sedimentation rate 53(H) 1 - 20 mm/hr [facility]) Blood specimen (specimen) 10/07/2020 4:54 PM CDT 10/07/2020 5:03 PM CDT us Carolina Delarosa MD LAB BLOOD ORDERABLES Final Result Performing Organization Address City/[facility]/ZIP Co de Phone Number ARPITA [facility] ([place]) 1 [place] [address] * (ABNORMAL) CRP (acute phase) (10/07/2020 4:54 PM CDT) [facility] CRP 22.3(H) <=10.0 mg/L ARPITA [facility] ([place]) Blood specimen (specimen) 10/07/2020 4:54 PM CDT 10/07/2020 5:03 PM CDT Carolina Delarosa MD LAB BLOOD ORDERABLES Final Result Performing Organization Address [facility] Co de Phone Number ARPITA [facility] ([place]) 1 [place] [address] * C3 complement (10/07/2020 4:54 PM CDT) [facility] Complement C3 156 90 - 180 mg/dL [facility] ([place]) Comment:Testing performed by : [facility], [address] [place] [address], [address] Blood specimen (specimen) 10/07/2020 4:54 PM CDT 10/08/2020 10:08 AM CDT Carolina Delarosa MD LAB BLOOD ORDERABLES Final Result Performing Organization Address [facility] Co de Phone Number ARPITA [facility] ([place]) 1 [facility] [place] [address] * (ABNORMAL) Comprehensive metabolic panel (10/07/2020 4:54 PM CDT) [facility] Sodium 134(L) 135 - 145 mmol/L [facility] ([place]) Potassium, pl 3.6 3.3 - 4.9 mmol/L [facility] ([place]) Chloride 102 97 - 110 mmol/L [facility] ([place]) CO2 20(L) 22 - 32 mmol/L [facility] ([place]) Anion gap 12 2 - 15 [...] 16 10 - 45 Units/L [facility] ([place]) Blood specimen (specimen) 10/07/2020 4:54 PM CDT 10/07/2020 5:03 PM CDT us Carolina Delarosa MD LAB BLOOD ORDERABLES Final Result [facility] ([place]) 1 [facility] Department of Laboratories [place], [place] [id number] * (ABNORMAL) CBC with auto differential (10/07/2020 4:54 PM CDT) WBC 10.0(H) 3.8 - 9.9 K/cumm [facility] ([place]) Hgb 10.3(L) 11.9 - 15.5 g/dL [facility] ([place]) Hct 30.8(L) 35.6 - 45.5 % [facility] ([place]) Plt 275 150 - 400 K/cumm [facility] ([place]) MPV 9.7 9.1 - 12.3 fL [facility] ([place]) RBC 3.50(L) 3.90 - 5.20 M/cumm [facility] ([place]) MCV 88.0 81.3 - 96.4 fL [facility] ([place]) MCH 29.4 27.1 - 33.3 pg [facility] ([place]) MCHC 33.4 32.3 - 35.7 g/dL [facility] ([place]) RDW CV 14.1 11.1 - 14.9 % [facility] ([place]) RDW SD 44.5 35.7 - 48.1 fL [facility] ([place]) NRBC abs 0.00 0.00 - 0.01 K/cumm [facility] ([place]) Blood specimen (specimen) 10/07/2020 4:54 PM CDT 10/07/2020 5:03 PM CDT us Carolina Delarosa MD LAB BLOOD ORDERABLES Final Result [facility] ([place]) 1 [facility] Department [place] [address] * Protein / creatinine ratio, urine, random (10/07/2020 4:47 PM CDT) Protein, ur, quant 7.0 mg/dL [facility] ([place]) Comment: Interpretive Data No reference range established. Current interpretive data was last revised 2018. Creatinine Ur 55.7 mg/dL [facility] ([place]) Comment: Interpretive Data No reference range established. Current interpretive data was last revised 2018. Protein/creatinin e ratio 125.7 0.0 - 180.0 mg/g CR [facility] ([place]) Urine 10/07/2020 4:47 PM CDT 10/07/2020 5:03 PM CDT us Carolina Delarosa MD LAB URINE ORDERABLES Final Result Performing Organization Address City/[facility]/ZIP Co de Phone Number ARPITA [facility] ([place]) 1 [facility] [place] [address] * Urinalysis reflex to microscopic and culture [...] ([place]) Blood, ur Negative Negative [facility] ([place]) Urobilinogen, ur <2.0 <2.0 mg/dL [facility] [...] for uric acid stone formation. Source: [facility] [employer] [place]. Last revised 03-08-2017 us Carolina Delarosa MD LAB MICROBIOLOGY - GENERAL ORDERABLES Final Result Performing Organization Address City/[facility]/ZIP Co de Phone Number [facility]ITA [facility] ([place]) 1 [facility] [place] [address] documented in this encounter Visit Diagnoses Diagnosis Other systemic lupus erythematosus with other organ involvement (HCC)- Primary Supervision of high-risk , unspecified trimester Other systemic lupus erythematosus with other organ involvement (HCC) documented in this encounter Historical Medications * This list may reflect changes made after this encounter. Medication Sig Dispense Quantity Refills Last Filled Start D ate End Date fluconazole (DIFLUCAN) 150 mg tablet 10/01/2020 11/08/2020 added in this encounter Care Teams Special Education Teachers Relationship Specialty [place] [address] [address] [address] PCP - General 07/04/19 [place] [address] [address] [address] 11/16/18 Ernie Shaw MD [address] [place] [address] DR [address] [place] [address] Teaching Associate Obstetrics and Gynecology 06/10/20 documented as of this encounter
--- OUTSIDE RECORDS SUMMARY | 2024-02-24 20:06 | XMS_ITS | Encounter Summary ---
Author Organization [facility] Address [address] [place] [address] Care Team Providers Care Director Recreation Center Name Role Phone Huseyin Dangelo MD Unavailable [phone] Brian Mon MD Primary Care Provider + Ernie Shaw MD Unavailable [phone] Encounter Details Date Type Department Care Team (Late st Contact Info) Description 09/24/2020 11:45 AM CDT [address] [address] Carolina Delarosa MD [address] [place] [address] Systemic lupus erythematosus, unspecified SLE type, unspecified organ involvement status (HCC); High risk medication use Discharge Disposition: Discharge to home or self [...] Priority Date/Time Associated Diagnosis Comments EGFR Routine 09/24/2020 11:59 AM CDT Systemic lupus erythematosus, unspecified SLE type, unspecified organ involvement status (HCC) DIFFERENTIAL AUTO Routine 09/24/2020 11: 59 AM CDT Systemic lupus erythematosus, unspecified SLE type, unspecified organ involvement status (HCC) High risk medication use C4 COMPLEMENT Routine 09/24/2020 11:59 AM CDT Systemic lupus erythematosus, unspecified SLE type, unspecified organ involvement status (HCC) CBC WITH AUTO DIFFERENTIAL Routine 09/24/2020 11:59 AM CDT Systemic lupus erythematosus, unspecified SLE type, unspecified organ involvement status (HCC) High risk medication use ERYTHROCYTE SEDIMENTATION RATE Routine 09/24/2020 11:59 AM CDT Systemic lupus erythematosus, unspecified SLE type, unspecified organ involvement status (HCC) C3 COMPLEMENT Routine 09/24/2020 11:59 AM CDT Systemic lupus erythematosus, unspecified SLE type, unspecified organ involvement status (HCC) CRP (ACUTE PHASE) Routine 09/24/2020 11: 59 AM CDT Systemic lupus erythematosus, unspecified SLE type, unspecified organ involvement status (HCC) COMPREHENSIVE METABOLIC PANEL Routine 09/24/2020 11:59 AM CDT Systemic lupus erythematosus, unspecified SLE type, unspecified organ involvement status (HCC) ANTI-DOUBLE STRANDED DNA ANTIBODIES Routine 09/24/2020 11:44 AM CDT URINALYSIS AND REFLEX TO MICROSCOPIC AND CULTURE Routine 09/24/2020 11:44 AM CDT Systemic lupus erythematosus, unspecified SLE type, unspecified organ involvement status (HCC) PROTEIN / CREATININE RATIO, URINE, RANDOM Routine 09/24/2020 11:44 AM CDT Systemic lupus erythematosus, unspecified SLE type, unspecified organ involvement status (HCC) URINALYSIS, MICROSCOPIC ONLY Routine 09/24/2020 11:44 AM CDT Systemic lupus erythematosus, unspecified SLE type, unspecified organ involvement status (HCC) URINE CULTURE Routine 09/24/2020 11:44 AM CDT documented in this encounter Results * eGFR (09/24/2020 11:59 AM CDT) eGFR 142 mL/min/1.7 3 m2 [facility]IN ([place]) Comment: [...] was last reviewed 2020 Blood specimen (specimen) 09/24/2020 11:59 AM CDT 09/24/2020 12:16 PM CDT Carolina Delarosa MD LAB BLOOD ORDERABLES Final Result [facility] ([place]) 1 [facility] Department [place] [address] * (ABNORMAL) Differential, auto (09/24/2020 11:59 AM CDT) Neutrophil abs 7.8(H) 1.7 - 6.5 K/cumm [facility] ([place]) Imm gran abs 0.0 0.0 - 0.1 K/cumm [facility] ([place]) Lymphocyte abs 1.3 0.8 - 3.3 K/cumm [facility] ([place]) Monocyte abs 0.7 0.2 - 0.8 K/cumm [facility] ([place]) Eosinophil abs 0.1 0.0 - 0.5 K/cumm [facility] ([place]) Basophil abs 0.0 0.0 - 0.1 K/cumm [facility] ([place]) Neutrophil pct 78.7 % [facility] ([place]) Comment: Interpretive [...] was last revised on 2017. Lymphocyte pct 13.1 % [facility] ([place]) Comment: Interpretive Data Percent cell count reference ranges are not reported, since discordance with absolute values may lead to misinterpretation of CBC data. Current Interpretive Data was last revised on 2017. Monocyte pct 6.9 % [facility] ([place]) Comment: Interpretive Data [...] last revised on 2017. Blood specimen (specimen) 09/24/2020 11:59 AM CDT 09/24/2020 12:16 PM CDT Carolina Delarosa MD LAB BLOOD ORDERABLES Final Result [facility] ([place]) 1 [facility] Department [place] [address] * (ABNORMAL) CBC with auto differential (09/24/2020 11:59 AM CDT) WBC 9.9 3.8 - 9.9 K/cumm [facility] ([place]) Hgb 10.2(L) 11.9 - 15.5 g/dL [facility] ([place]) Hct 30.8(L) 35.6 - 45.5 % [facility] ([place]) Plt 287 150 - 400 K/cumm [facility] ([place]) MPV 9.5 9.1 - 12.3 fL [facility] ([place]) RBC 3.51(L) 3.90 - 5.20 M/cumm [facility] ([place]) MCV 87.7 81.3 - 96.4 fL [facility] ([place]) MCH 29.1 27.1 - 33.3 pg [facility] ([place]) MCHC 33.1 32.3 - 35.7 g/dL [facility] ([place]) RDW CV 13.7 11.1 - 14.9 % [facility] ([place]) RDW SD 43.8 35.7 - 48.1 fL [facility] ([place]) NRBC abs 0.00 0.00 - 0.01 K/cumm [facility] ([place]) Blood specimen (specimen) 09/24/2020 11:59 AM CDT 09/24/2020 12:16 PM CDT Carolina Delarosa MD LAB BLOOD ORDERABLES Final Result [facility] ([place]) 1 [facility] Department [place] [address] * (ABNORMAL) Comprehensive metabolic panel (09/24/2020 11:59 AM CDT) Sodium 135 135 - 145 mmol/L [facility] ([place]) Potassium, pl 3.6 3.3 - 4.9 mmol/L [facility] ([place]) Chloride 102 97 - 110 mmol/L [facility] ([place]) CO2 21(L) 22 - 32 mmol/L [facility] ([place]) Anion gap 11 2 - 15 mmol/L [facility] ([place]) BUN 7(L) 8 - 25 mg/dL [facility] ([place]) Creatinine 0.40(L) 0.60 - 1.10 mg/dL [facility] ([place]) Glucose 100 70 - 199 mg/dL [facility] ([place]) [...] ([place]) AST 14 10 - 45 Units/L [facility] ([place]) Blood specimen (specimen) 09/24/2020 11:59 AM CDT 09/24/2020 12:16 PM CDT Carolina Delarosa MD LAB BLOOD ORDERABLES Final Result AR[facility]ITA [facility] ([place]) 1 [facility] [place] [address] * (ABNORMAL) CRP (acute phase) (09/24/2020 11:59 AM CDT) CRP 15.5(H) <=10.0 mg/L [facility] ([place]) Blood specimen (specimen) 09/24/2020 11:59 AM CDT 09/24/2020 12:16 PM CDT us Carolina Delarosa MD LAB BLOOD ORDERABLES Final Result Performing Organization Address [facility]/ZIP Co de Phone Number AR[facility]ITA MARTIN ([place]) 1 [facility] [place] [address] * (ABNORMAL) Erythrocyte sedimentation rate (09/24/2020 11:59 AM CDT) Erythrocyte sedimentation rate 48(H) 1 - 20 mm/hr [facility] ([place]) Blood specimen (specimen) 09/24/2020 11:59 AM CDT 09/24/2020 12:16 PM CDT Carolina Delarosa MD LAB BLOOD ORDERABLES Final Result [facility]ITA MARTIN ([place]) 1 [facility] [place] [address] * C3 complement (09/24/2020 11:59 AM CDT) Complement C3 148 90 - 180 mg/dL [facility]IN ([place]) Comment:Testing performed by : [facility], [address] [place] [address], [address] Blood specimen (specimen) 09/24/2020 11:59 AM CDT 09/24/2020 2:17 PM CDT Carolina Delarosa MD LAB BLOOD ORDERABLES Final Result [facility] ([place]) 1 [facility] [place] [address] * C4 complement (09/24/2020 11:59 AM CDT) Complement C4 20 10 - 40 mg/dL [facility] MARTIN ([place]) Comment:Testing performed by : [facility], [address] [place] [address], [address] Blood specimen (specimen) 09/24/2020 11:59 AM CDT 09/24/2020 2:17 PM CDT Carolina Delarosa MD LAB BLOOD ORDERABLES Final Result Performing Organization Address [facility] Co de Phone Number ARPITA [facility] ([place]) 1 [facility] [place] [address] * Anti-double stranded DNA antibodies (09/24/2020 11:44 AM CDT) Anti-double stranded DNA, IgG Negative Negative [facility] ([place]) Comment:Testing performed by : [facility], [address] [place] [address], [place]., [address] Blood specimen (specimen) 09/24/2020 11:44 AM CDT 09/27/2020 10:30 AM CDT Carolina Delarosa MD LAB BLOOD ORDERABLES Final Result Performing Organization Address City/[facility]/ZIP Co de Phone Number AR[facility]ITA [facility]ARTIN ([place]) 1 [facility] [place] [address] * Urine culture Urine, clean voided (09/24/2020 11:44 AM CDT) Report Final Report: Less than 100,000 colonies/mL (clinically insignificant growth based on current clinical standards) [facility] MARTIN ([place]) Comment:Testing performed by : [facility], [address] [place]., [address] Organism (CLINICALLY INSIGNIFICANT GROWTH [facility]ART[facility] ([place]) Urine, clean voided 09/24/2020 11:44 AM CDT 09/24/2020 3:41 PM CDT Narrative AR[facility]ITA MRATIN ([place]) - 09/25/2020 7:29 PM CDT Urine culture reflexed based upon urinalysis results. Testing performed by [facility] Microbiology Laboratory ([phone]) us Carolina Delarosa MD LAB MICROBIOLOGY - GENERAL ORDERABLES Final Result AR[facility]ITA MARTIN ([place]) 1 [facility] Department [place] [address] * (ABNORMAL) Urinalysis, microscopic only (09/24/2020 11:44 AM CDT) WBC, ur 11-20(A) 0 - 5 /HPF [facility] ([place]) RBC, ur 0-2 0 - 2 /HPF [facility] ([place]) Epithelial cells, squamous, ur 1-5 0 - 5 /HPF [facility] ([place]) Bacteria, ur 3+(A) [facility] ([place]) Mucous, ur Present(A) [facility] ([place]) Hyaline casts, ur 1-5 0 - 10 /LPF [facility] ([place]) Culture Reflex Comment Reflex to urine culture will be performed. [facility] ([place]) Urine 09/24/2020 11:4 4 AM CDT 09/24/2020 1:04 PM CDT us Carolina Delarosa MD LAB URINE ORDERABLES Final Result [facility] MARTIN ([place]) 1 [facility] Department [place] [address] * (ABNORMAL) Urinalysis reflex to microscopic and [...] tendency for uric acid stone formation. Source: [employer]. Last revised 03-08-2017 us Carolina Delarosa MD LAB MICROBIOLOGY - GENERAL ORDERABLES Final Result [facility]ITA MARTIN ([place]) 1 [facility] Department [place] [address] * Protein / creatinine ratio, urine, random (09/24/2020 11:44 AM CDT) Protein, ur, quant 20.0 mg/dL [facility] ([place]) Comment: Interpretive Data No reference range established. Current interpretive data was last revised 2018. Creatinine Ur 262.2 mg/dL [facility] ([place]) Comment: Interpretive Data No reference range established. Current interpretive data was last revised 2018. Protein/creatinin e ratio 76.3 0.0 - 180.0 mg/g CR [facility] ([place]) Urine 09/24/2020 11:4 4 AM CDT 09/24/2020 1:04 PM CDT us Carolina Delarosa MD LAB URINE ORDERABLES Final Result [facility]ART[facility] ([place]) 1 [facility] Department [place] [address] documented in this encounter Visit Diagnoses Diagnosis Systemic lupus erythematosus, unspecified SLE type, unspecified organ involvement status (HCC) High risk medication use documented in this encounter Care Teams Director Recreation Center Relationship Specialty [place] [address] [address] [place] [address] PCP - General 07/04/19 [place] [address] [address] [place] [address] 11/16/18 Ernie Shaw MD [address] [place] [address] [address] [place] [address] Medical Office Coordinator Obstetrics and Gynecology 06/10/20 documented as of this encounter
--- OUTSIDE RECORDS SUMMARY | 2024-02-24 20:06 | XMS_ITS | Encounter Summary ---
Author Organization [facility] Healthcare Address [address] [place] [address] Care Team Providers Care Agent Telegrapher Name Role Phone Huseyin Dangelo MD Unavailable [phone] Brian Mon MD Primary Care Provider + Ernie Shaw MD Unavailable [phone] Reason for Visit * Reason Onset Date Comments Chest Pain 09/23/2020 Encounter Details Date Type Department Care Team (Late st Contact Info) Description 09/23/2020 Nurse Triage [address] [address] Leti Russ RN Social History Tobacco Use Types Packs/Day [...] encounter Miscellaneous Notes * Telephone Encounter - Jeb Leti RenoPRO Lee - 09/23/2020 1:26 AM CDT Direct call from pt. Her name and were verified. She states that since 2099 last night she has had chest pain. States it is in the center of the sternum between breasts. Radiates to her back and to the right and left of the sternum and up and down from the center of the sternum. States she has taken Tums and Mylanta and neither of them helped the pain go away. She states she took her Bp which was normal. I told her that if the Tums and Mylanta did not help, to please come to the [facility] for further evaluation. She ask what the pain could possibly be related to. I told her it could be a plethora of different things. That the doctor would have to examine her to make a proper diagnosis. I told her I would be putting this note in her chart for the doctors to view. Answer Assessment - Initial Assessment Questions 1. LOCATION: Where does it hurt? Center chest on the sternum. 2. RADIATION: Does the pain go anywhere else? (e.g., into neck, jaw, arms, back) States her back hurts. From the center of her chest she states it goes up and down and side to sidewith pain. 3. ONSET: When did the chest pain begin? (Minutes, hours or days) States it started at 2099 last night. 4. PATTERN Does the pain come and go, or has it been constant since it started? Does it get worse with exertion? States that it is constant, but worsens when she moves around. 5. DURATION: How long does it last (e.g., seconds, minutes, hours) It has hurt constantly since 2099 last night. 6. SEVERITY: How bad is the pain? (e.g., Scale 1-10; mild, moderate, or severe) - MILD (1-3): doesn't interfere with normal activities - MODERATE (4-7): interferes with normal activities or awakens from sleep - SEVERE (8-10): excruciating pain, unable to do any normal activities 7. CARDIAC RISK FACTORS: Do you have any history of heart problems or risk factors for heart disease? (e.g., angina, prior heart attack; diabetes, high blood pressure, high cholesterol, smoker, or strong family history of heart disease) Took her blood pressure and it was normal. 8. PULMONARY RISK FACTORS: Do you have any history of lung disease? (e.g., blood clots in lung, asthma, emphysema, control pills) 9. CAUSE: What do you think is causing the chest pain? no 10. OTHER SYMPTOMS: Do you have any other symptoms? (e.g., dizziness, nausea, vomiting, sweating,fever, difficulty breathing, cough) Not noted. 11. : Is there any chance you are ? When was your last menstrual period? Yes she is 22 weeks . [facility] 01/27/21 Protocols used: CHEST [id number] documented in this encounter Plan of Treatment Not on file documented as of this encounter Visit Diagnoses Not on filedocumented in this encounter Care Teams Agent Telegrapher Relationship Specialty [place] [address] [place] [address] PCP - General 07/04/19 [place] [address] [address] [place] [address] 11/16/18 Ernie Shaw MD [address] [place] [address] [address] [place] [address] Plate Finisher Obstetrics and Gynecology 06/10/20 documented as of this encounter
--- OUTSIDE RECORDS SUMMARY | 2024-02-24 20:06 | XMS_ITS | Encounter Summary ---
Author Organization [facility] [employer] [facility] Address [address] [place] [address] Phone Care Team Providers Care Supervisor Remelt Name Role Phone Huseyin Dangelo MD Unavailable [phone] Brian Mon MD Primary Care Provider + Ernie Shaw MD Unavailable [phone] Encounter Details Date Type Department Care Team (Late st Contact Info) Description 10/07/2020 Telephone [facility] Maternal- Medicine [address] [facility] 7th Floor [address] [place] [address] Anh Marin, PRO Social History [...] Telephone Encounter - Anh Marin RN - 10/07/2020 3:59 PM CDT ----- Message from Cartio Madison sent at 10/07/2020 3:48 PM CDT ----- Regarding: RE: questions following appt. Contact: I'm in so much pain in my chest and arm could something please be done I'm trying to be tough but it's painful ----- Message ----- From: Nurse Anh Lopez Sent: 10/07/20, 3:45 PM To: Carito Madison Subject: questions following appt. Radames Arzate, I got your voicemail regarding follow-up question from your appointment today. What can we help you with?? Ahn Marin RN documented in this encounter Plan of Treatment Not on file documented as of this encounter Visit Diagnoses Not on filedocumented in this encounter Care Teams Supervisor Remelt Relationship Specialty [place] [address] [address] [facility] [place] [address] PCP - General 07/04/19 [place] [address] [place] [address] 11/16/18 Ernie Shaw MD [address] [place] [address] [address] [place] [id number] Insurance Producer Obstetrics and Gynecology 06/10/20 documented as of this encounter
--- OUTSIDE RECORDS SUMMARY | 2024-02-24 20:06 | XMS_ITS | Encounter Summary ---
Author Organization [facility] Healthcare Address [address] [place] [address] Care Team Providers Care Mechanical Cad Drafter Name Role Phone Huseyin Dangelo MD Unavailable [phone] Brian Mon MD Primary Care Provider + Ernie Shaw MD Unavailable Encounter Details Date Type Department Care Team (Late st Contact Info) Description 10/19/2020 9:45 AM CDT Ancillary Procedure [address] [place] [address] Social History Tobacco Use Types Packs/Day Years [...] Diagnosis Comments US OB LIMITED IP Routine 10/19/2020 9:27 AM CDT documented in this encounter Results * US Ob Limited (10/19/2020 9:27 AM CDT) Fetus# Fetus1 VIEWPOINT Placenta Details anterior, Complete previa, no placental masses VIEWPOINT Presentation Transverse Lie - High VIEWPOINT Anatomical Region Laterality Modality Abdomen N/A Ultrasound 10/19/2020 9:28 AM CDT Dilan Riley MD IMG OB US PROCEDU RES Final Result documented in this encounter Visit Diagnoses Not on filedocumented in this encounter Care Teams Mechanical Cad Drafter Relationship Specialty [place] [address] [address] [place] [address] PCP - General 07/04/19 [place] [address] [address] [place] [address] 11/16/18 Ernie Shaw MD [address] [place] [address] [address] [place] [address] Supervisor Photoengraving Obstetrics and Gynecology 06/10/20 documented as of this encounter
--- OUTSIDE RECORDS SUMMARY | 2024-02-24 20:06 | XMS_ITS | Encounter Summary ---
Author Organization [facility] Healthcare Address [address] [place] [address] Care Team Providers Care Motor Scooter Mechanic Name Role Phone Huseyin Dangelo MD Unavailable [phone] Brian Mon MD Primary Care Provider + Ernie Shaw MD Unavailable [phone] Reason for Visit * Reason Onset Date Comments Chest & left arm pain 10/07/2020 Has been h aving chest and left arm pain for 4 days Encounter Details Date Type Department Care Team (Late st Contact Info) Description 10/07/2020 Nurse Triage [address] [address] Violette Ludwig RN Social History Tobacco Use [...] Telephone Encounter - Violette Ludwig RN - 10/07/2020 3:49 PM CDT 1545: Patient called asking where she should be seen for chest pain going down Her left arm. Statesit has been going on for 4 days. Denies any shortness of breath. She has had heartburn and this is not the same feeling. She had an OB appointment today and everything is fine with her baby. Her babyis moving normally. Patient advised that she should be seen in the Emergency Department for faster service. Patient questioning if [facility] and that she didnot want to go to the Emergency Department because of COVID - again advised to be seen in the Emergency Department that they keep the COVID patients separate from other patients. . Patient states that she will go to the Emergency Department. Reason for Disposition ??? Pain also in shoulder(s) or arm(s) or jaw Answer Assessment - Initial Assessment Questions 1. LOCATION: Where does it hurt? Chest pain 2. RADIATION: Does the pain go anywhere else? (e.g., into neck, jaw, arms, back) Down left arm 3. ONSET: When did the chest pain begin? (Minutes, hours or days) 4 days ago 4. PATTERN Does the pain come and go, or has it been constant since it started? Does it get worse with exertion? Constant 5. DURATION: How long does it last (e.g., seconds, minutes, hours) 4 days 6. SEVERITY: How bad is the pain? (e.g., Scale 1-10; mild, moderate, or severe) - MILD (1-3): doesn't interfere with normal activities - MODERATE (4-7): interferes with normal activities or awakens from sleep - SEVERE (8-10): excruciating pain, unable to do any normal activities Modeerate 7. CARDIAC RISK FACTORS: Do you have any history of heart problems or risk factors for heart disease? (e.g., angina, prior heart attack; diabetes, high blood pressure, high cholesterol, smoker, or strong family history of heart disease) Denies 8. PULMONARY RISK FACTORS: Do you have any history of lung disease? (e.g., blood clots in lung, asthma, emphysema, control pills) Denies 9. CAUSE: What do you think is causing the chest pain? Unsure 10. OTHER SYMPTOMS: Do you have any other symptoms? (e.g., dizziness, nausea, vomiting, sweating,fever, difficulty breathing, cough) Denies 11. : Is there any chance you are ? When was your last menstrual period? - MANE: 01/27/2021 Protocols used: CHEST [id number] documented in this encounter Plan of Treatment Not on file documented as of this encounter Visit Diagnoses Not on filedocumented in this encounter Care Teams Motor Scooter Mechanic Relationship Specialty [place] [address] [address] [place] [address] PCP - General 07/04/19 [place] [address] [address] [place] [address] 11/16/18 Ernie Shaw MD [address] [place] [address] [address] [place] [address] Rn Hematology Obstetrics and Gynecology 06/10/20 documented as of this encounter
--- OUTSIDE RECORDS SUMMARY | 2024-02-24 20:06 | XMS_ITS | Encounter Summary ---
Author Organization [facility] [facility] Address [address] [place] [address] Phone Care Team Providers Care Propeller Engineer Name Role Phone Huseyin Dangelo MD Unavailable [phone] Brian Mon MD Primary Care Provider + Ernie Shaw MD Unavailable [phone] Reason for Visit * Reason Onset Date Comments Incoming Call 09/22/2020 body ache s Encounter Details Date Type Department Care Team (Late st Contact Info) Description 09/22/2020 Nurse Triage [facility] Maternal- Medicine [address] [facility] 7th Floor [address] [place] [address] Nathalie Shukla MD [address] [place] [address] Social History Tobacco Use Types Packs/Day [...] Telephone Encounter - Amy Rodriges RN - 09/22/2020 7:37 AM CDT Reason for Disposition ??? [1] COVID-19 infection suspected by caller or triager AND [2] mild symptoms (cough, fever, or others) AND [3] no complications or SOB Protocols used: CORONAVIRUS (COVID-19) DIAGNOSED OR [id number] * Telephone Encounter - Amy Rodriges RN - 09/22/2020 7:20 AM CDT Patient calling stating she is almost sure she has COVID. States she is not sure if she was exposedor not. Had one dose of vaccinee but never had 2nd one. Patient reports has body aches and is exhausted. I'm so exhausted I can't get out of bed. Patient states she was told to get a test but just hasn't been able to get out of bed. Her will take her today. Wants to make sure it's not hurting the baby. Denies fever, but reports chills. States coughs only at night. Denies [place] or sore throat. Every muscle hurts. No loss of taste or smell. Denies respiratory issues or SOB. Pt reports starting to feel bad Sunday evening. Concerned it will hurt the baby. Encouraged patient to get tested today for definitive dx. Patient has not taken anything as of yet. Has tylenol cold and flu. Advised to take plain tylenol 1 gm every 6 hours. Mucinex for cough. Stay hydrated, rest. Encouraged to stayat home and let it run it's course. Mask if she needs to go out and at home to prevent infection ofothers in house. Reviewed when patient should go to ED- high fever, SOB or difficultly breathing. Patient is 22 wks IUP. Denies any cramps, contrs, LOF vaginal dc or VB. States has felt flutters of movements. Reinforced getting tested today. Tylenol and Mucinex, hydration and rest. Patient states she understand and plans to follow advise. documented in this encounter Plan of Treatment Not on file documented as of this encounter Visit Diagnoses Not on filedocumented in this encounter Additional Health Concerns Infection Onset Date Last Indicated Resolved Time COVID: Suspected 09/13/2020 01/13/2021 09/22/2020 9:40 AM CDT documented as of this encounter Care Teams Propeller Engineer Relationship Specialty [place] [address] [address] [place] [address] PCP - General 07/04/19 [place] [address] [address] [place] [address] 11/16/18 Ernie Shaw MD [address] [place] [address] [address] [place] [address] Supervisor Plastic Sheets Obstetrics and Gynecology 06/10/20 documented as of this encounter
--- OUTSIDE RECORDS SUMMARY | 2024-02-24 20:06 | XMS_ITS | Encounter Summary ---
Author Organization [facility] Healthcare Address [address] [place] [address] Care Team Providers Care Skip Load Driver Name Role Phone Huseyin Dangelo MD Unavailable [phone] Brian Mon MD Primary Care Provider + Ernie Shaw MD Unavailable [phone] Reason for Visit * Reason Comments Problem pt has had a steady trickle of clear fluid for the past 2 days and this AM saw a scant amount of blood in the toilet and lower abd pressure Encounter Details Date Type Department Care Team (Latest Contact Info) Description 10/18/2020 10:18 AM CDT - 10/19/2020 5:00 PM CDT Hospital Encounter [address] [id number] Dilan Riley MD [address] [facility] [id number] [place] [address] Discharge Disposition: Left Against Medical Advice Social [...] Sign Reading Time Taken Comments Blood Pressure 111/65 10/19/2020 12:57 PM CDT Pulse 95 10/19/2020 12:57 PM CDT Temperature 36.9 ??C (98.4 ??F) 10/19/2020 12:57 PM C DT Respiratory Rate 18 10/19/2020 12:57 PM CDT Oxygen Saturation 100% 10/19/2020 12:57 PM CDT Inhaled Oxygen Concentration - - Weight - - Height - - Body Mass Index - - documented in this encounter Discharge Diagnoses Diagnosis Complete placenta previa with hemorrhage, second trimester - COMPLETE PLACENTA PREVIA WITH HEMORRHAGE, SECOND TRIMESTER Other adrenocortical insufficiency (HCC) - OTHER ADRENOCORTICAL INSUFFICIENCY 25 weeks gestation of - 25 WEEKS GESTATION OF Other retirement (current) drug therapy - OTHER CHIEF LEGAL OFFICER (CURRENT) DRUG THERAPY Endocrine, nutritional and metabolic diseases complicating , second trimester - ENDOCRINE, NUTRITIONAL AND METABOLIC DISEASES COMPLICATING , SECOND TRIMESTER 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 systemic steroids - CHIEF LEGAL OFFICER (CURRENT) USE OF SYSTEMIC STEROIDS Generalized anxiety disorder - GENERALIZED ANXIETY DISORDER Other mental disorders complicating , second trimester - OTHER MENTAL DISORDERS COMPLICATING , SECOND TRIMESTER Attention-deficit hyperactivity disorder, unspecified type - ATTENTION-DEFICIT HYPERACTIVITY DISORDER, UNSPECIFIED TYPE Epilepsy, unspecified, not intractable, without status epilepticus (HCC) - EPILEPSY, UNSPECIFIED, NOT INTRACTABLE, WITHOUT STATUS EPILEPTICUS Diseases of the nervous system complicating , second trimester - DISEASES OF THE NERVOUS SYSTEM COMPLICATING , SECOND TRIMESTER Other malformation of placenta, second trimester - OTHER MALFORMATION OF PLACENTA, SECOND TRIMESTER Systemic lupus erythematosus, unspecified (HCC) - SYSTEMIC LUPUS ERYTHEMATOSUS, UNSPECIFIED Contact with and (suspected) exposure to covid-19 - CONTACT WITH AND (SUSPECTED) EXPOSURE TO COVID-19 Personal history of nicotine dependence - PERSONAL HISTORY OF NICOTINE DEPENDENCE Diseases of the respiratory system complicating , second trimester - DISEASES OF THE RESPIRATORY SYSTEM COMPLICATING , SECOND TRIMESTER Unspecified asthma, uncomplicated - UNSPECIFIED ASTHMA, UNCOMPLICATED Rheumatoid arthritis, unspecified (HCC) - RHEUMATOID ARTHRITIS, UNSPECIFIED Chronic kidney disease, unspecified - CHRONIC KIDNEY DISEASE, UNSPECIFIED Major depressive disorder, single episode, unspecified - MAJOR DEPRESSIVE DISORDER, SINGLE EPISODE, UNSPECIFIED Anxiety disorder, unspecified - ANXIETY DISORDER, UNSPECIFIED documented in this encounter Discharge Summaries * Chitra Fan MD - 10/19/2020 5:12 PM CDT Inpatient Discharge Summary BRIEF OVERVIEW Admitting Provider: Dilan Riley MD Discharge Provider: Dilan Riley MD Primary Care Physician at Discharge: Brian Mon MD [phone] Admission Date: 10/18/2020 Discharge Date: 10/19/2020 Admission Location: [facility] Problems/Diagnoses: Active Problems: No Active Problems: There are no active problems currently on the Problem List. Please update the Problem List and refresh. Resolved Problems: No resolved hospital problems. DETAILS OF HOSPITAL STAY Presenting Problem/History of Present Illness: Carito Bowen is a 30 y.o. female at 25w4d gestation, dated by 1st trimester ultrasound ?? Her is complicated by placenta previa, marginal cord insertion, SLE, secondary adrenal insufficiency, epilepsy, ADHD, MARIMAR ?? Endorses vaginal spotting this AM on toilet paper, no ongoing vaginal bleeding. Also endorses leakage of fluid for the last 3 days. Doesn't believe it's urine and states that the fluid occasionally runs down her leg. No contractions, feeling active movement. ?? Of note, also endorses shortness of breath and headache over the last three days that does not resolve with Tylenol. Currently does not have headache. Also endorses nausea, vomiting, and constant RUQpain. Has vomited after every meal, but is stable from the beginning of her . ?? Received the second dose of the COVID vaccine 6 days ago and associates these symptoms with that. Also endorses cough that began last night. Hospital Course: Carito Bowen is a 30 y/o at 25w5d admitted with vaginal bleeding in setting of known placenta previa. #Vaginal bleeding #Placenta previa #Marginal CI Patient presented to [facility] 10/18 with vaginal spotting on toilet paper. No ongoing vaginal bleeding onpresentation. She also endorsed leakage of fluid for 3 days. Denied contractions, feeling active movement. Patient known to have an anterior placenta previa, covering internal os. She has had two prior episodes of vaginal bleeding this , most recently 09/29. Inpatient admission was recommended at this time, patient declined. Labs on admission Hgb 10.1->10.2, PT/PTT/fibrinogen wnl,Rh pos. No active bleeding per os on speculum exam on admission. CBC 10/19 stable, patient denied further bleeding or spotting. Repeat formal US on 10/19 was consistent with anterior placenta with complete previa. Patient received first dose of betamethasone for lung maturity on 10/18, but declined second dose following counseling. On 10/19, patient expressed desire to leave [facility]. She was counseled extensively on recommendations for inpatient management and given strict return precautions. #SLE Current regimen Hydroxychloroquine 200/400mg alternating days, prednisone 5mg daily, ASA 81mg continued while inpatient. Baseline CBC/CMP, UPC <0.125. Patient followed by [facility]. 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 MRI neg. #Secondary adrenal insufficiency In s/o chronic steroid use. #MARIMAR Continued on Zoloft 25mg daily while admitted. #FWB -Dating criteria 1T US -Genetic screening LR harmony -Anatomy US 08/26/20 wnl -Date 10/07: fUS EFW 691g (59%), variable, BRI 12.8 -BMZ^10/20 -Mag deferred -dNST -Next US due 10/28 #MWB -PNL: Rh A+/Ab neg, Rub Imm, HIV neg, HepB neg, RPR NR, GC/CT neg/neg, UCx CIG -3T labs not yet indicated -Pap 05/31/20 unsatisfactory 03/30 insufficient squamous cellularity -1hr GTT not yet indicated -Tdap not yet indicated -Placenta anterior previa -GBS to collect -MOF: breast -MOD: If previa, pCS -MOC: considering vasectomy for partner -CVD vaccinated x2 Active Issues Requiring Follow-up: Placenta previa, continue to monitor for bleeding Test Results Pending at Discharge: Operative Procedures Performed: Other Procedures: None Pertinent Test Results: Results for CARITO BOWEN ( ) as of 10/19/2020 11:31 10/18/2020 12:30 WBC 10.5 (H) Hgb 10.1 (L) Hct 30.5 (L) Plt 285 Results for CARITO BOWEN ( ) as of 10/19/2020 11:31 10/18/2020 14:25 PT 11.1 INR 1.0 aPTT 27 Fibrinogen 524 (H) Formal ultrasound 10/19: IUP - 25w 5d The placenta is anterior and the lower margin con nues to cover the internal os. Mild polyhydramnios. The BPP is reassuring. Transverse lie presentation Discharge Details Physical Exam at Discharge: Discharge Condition: fair Pulse: 95 Resp: 18 BP: 111/65 Temp: 98.4 ??F Weight: Pertinent Exam Findings at Discharge: see progress note from day of discharge Discharge Disposition: Code Status at Discharge: full code Discharge Instructions: See AVS Discharge Medications: Current Medications TAKE these medications aspirin 81 mg enteric coated tablet Take 81 mg by mouth daily clobetasoL 0.05 % ointment Apply topically 2 (two) times a day Commonly known as: TEMOVATE ferrous gluconate 324 mg (37.5 mg of elemental iron) tablet TAKE 1 TABLET BY MOUTH THREE TIMES A DAY fluconazole 150 mg tablet Commonly known as: DIFLUCAN hydrOXYchloroQUINE 200 mg tablet Take 2 tablets (400 mg total) by mouth daily Commonly known as: PLAQUENIL multivitamin capsule Take 1 capsule by mouth daily nitrofurantoin monohydrate 100 mg capsule Take 1 capsule (100 mg total) by mouth 2 (two) times a day Commonly known as: MACROBID omeprazole 20 mg capsule Take 20 mg by mouth daily Commonly known as: PriLOSEC ondansetron ODT 8 mg disintegrating tablet Dissolve 1 tablet on top of tongue then swallow with saliva every 8 hours as needed for nausea or vomiting Commonly known as: ZOFRAN-ODT polyethylene glycol 17 gram/dose powder Take 17 g by mouth 2 (two) times a day Commonly known as: MIRALAX predniSONE 5 mg tablet TAKE 2 TABLETS(10 MG) BY MOUTH DAILY Commonly known as: DELTASONE sertraline 25 mg tablet Commonly known as: ZOLOFT valACYclovir 500 mg tablet TAKE 1 TAB BY MOUTH 3 TIMES DAILY FOR 7 DAYS. Commonly known as: VALTREX Outpatient Follow-Up: Future Appointments Date Time Provider Department Center 10/26/2020 2:00 PM OB US ROOM 2 [facility] [address] [facility] 7 [facility] 7 10/26/2020 2:45 PM MFM VICE PRESIDENT AND PORTFOLIO MANAGER MFM [facility] 7 OB 11/04/2020 10:45 AM OB US ROOM 6 [facility] [address] [facility] 7 [facility] 7 11/04/2020 11:45 AM MFM VICE PRESIDENT AND PORTFOLIO MANAGER MFM [facility] 7 OB 12/16/2020 1:30 PM [facility] Cosigned by Dilan Riley MD at 10/20/2020 12:32 PM CDT documented in this encounter Discharge Instructions * Discharge Instructions* Chitra Fan MD - 10/19/2020 11:34 AM CDT Discharge Instructions Call Your Doctor If: Labor Precautions: * Call your doctor or return to the ER/Triage area for fever of 100.4 degrees or higher. * You have increased cramping, six or more contractions in an hour, and/or leakage of amniotic fluids. * You have vaginal bleeding. * You notice a decrease in movement. Premature Rupture of Membrane Precautions: * Call your doctor or return to the ER/Triage area for fever of 100.4 degrees or higher. Remember to take your temperature every 4 hours or when you feel warm. * You have abdominal tenderness. * You have a change in odor, color, or amount of vaginal discharge. * You have increased cramping. * You have six or more contractions in an hour. * You notice a decrease in movement. Preeclamptic Precautions: * You have a headache, difficulty breathing, [...] number) or 110 (bottom number). Diet: * Eat a regular diet as tolerated. Follow Up: * It is important to keep your follow up appointments * If you need to make changes your appointments, please call the office to reschedule. documented in this encounter Medications at Time [...] Disposition Disposition Code Departure Means Destination Left Against Medical Advice documented in this encounter Progress Notes * Giana Nelson RN - 10/19/2020 3:44 PM CDT CM Initial Assessment Interview Note Information Obtained From: Patient (via phone) (10/19/201539) Admission Source: Non Health Care Facility Impression: 30 year old female at 25w5d gestation admitted for VB in the setting of known placenta previa Plan Includes: No anticipated home needs. If HH services were needed at discharge patient would be provided with a list of HH agencies Primary Source of Transportation: car/spouse Does the patient need discharge transport arranged?: No (10/19/201542) Health Insurance Coverage: [facility] Choice select Prescription Coverage: yes Pharmacy: [facility] at [address] at [address] Primary Care Provider: Maternal Medicine Brian Mon MD Prior to Admission: Primary Caregiver: Self Support System: Spouse/Significant Other, Family members Support system contact info (name, phone, availablity): Jack Bowen(spouse) [phone]/Andrea Parikh(grandfather) [phone] Home Care Services: No Durable Medical Equipment: None Living Arrangements: Spouse/significant other Type of Residence: Private residence (10/19/20 154) Potential discharge needs include: No anticipation of home needs Dialysis: No Behavioral Health Services: No Behavioral Health Services: No (10/19/20 154) Patient expects to be Discharged to: private residence 11/05/20 Private residence, (10/19/201542) Additional Information: pt. Plans to breast feed her baby, cm informed pt. To call her insurance company to see how to order a double electric breast pump for home use. Pt. Has baby items at home along with a crib and a car seat. [employer] House [employer] Supervisor: undecided Patient's Identified Problem/Goal Problem: Ensure acute medical needs are met and that patient has a safe discharge plan. Goal: Secure a discharge plan that patient/family are agreeable with and ensure patient has continuum of care. Case management will follow for discharge planning and send referrals as needed. Goals include: To assure continuity of care, To maximize coping skills, To assure patient is in a safe environment and To assure access to community resources. Plan includes: 1. Collaboration with patient, MD, direct care nurse, Skilled Nursing Case Manager, Nurse Coordinator and other members of the health care team to assure needed interventions completed. 2. Return patient to optimal level of self-care post discharge. 3. Education Instructor will follow for Discharge Planning - interventions as needed 4. Anticipated level of care at discharge 5. Planned Discharge Disposition Based on a comprehensive family assessment, assistance with instrumental activities of daily livingafter discharge will be provided by the pt. spouse Through the course of our work I determined that the pt. spouse possesses the skill and ability to provide and monitor the care of the patient when he or she returns home. The pt. spouse has the capacity to provide/monitor/arrange for the care of the patient. Finally, we determined that the pt. spouse has the knowledge of available resources and that combining them with their existing resources will suffice to sustain and care for the patient when he or she returns home. The treatment team is aware of this information. All are in agreement with the aftercare plan. Leida Nelson RN * Giana Nelson RN - 10/19/2020 3:44 PM CDT 10/19/20 1543 Discharge Summary Discharge Disposition Home Equipment/Provider Needs No Home Needs Identified Discharge Additional Assistance Does the patient need discharge transport arranged? No * Chitra Fan MD - 10/19/2020 7:45 AM CDT Antepartum Progress Note Gestational Age: 25w5d Admission Date: 10/18/2020 Length of stay: 1 Admission Diagnosis: VB in the setting of known placenta previa SUBJECTIVE -Overnight with some abdominal cramping and back pain, declined exam -Declines vaginal bleeding -H/H stable this AM at 10.3/30.9 -Reports active movement. No vaginal bleeding/leakage of fluid/contractions. -Requesting to go home this AM Review of Systems Negative except as per above. OBJECTIVE Vitals: Temp Min: 98.1 ??F Max: 98.7 ??F Pulse Min: 75 Max: 116 BP Min: 94/53 Max: 125/59 Resp Min: 16 Max: 18 SpO2 Min: 97 % Max: 100 % FHR: NST reactive [place]: no ctx Physical Exam General: No acute distress. Appears stated age and cooperative. Cardiovascular: Regular rate and rhythm. No murmurs, rubs, gallops. Lungs: Non-labored. Clear to auscultation bilaterally. No wheezing/crackles appreciated. Abdomen: Soft, non-tender, gravid. Extremities: Warm and well-perfused. No bilateral lower extremity edema or calf tenderness. Pelvic: Deferred. Neurologic: Alert and oriented x4, non-focal Lab Review: Recent Results (from the past 24 hour(s)) POCT urinalysis dipstick Collection Time: 10/18/20 10:40 AM Result Value Ref Range Color, Urine, POC Dark Yellow Clarity, ur, POC Clear Clear Glucose, ur, POC Negative Negative mg/dL Bilirubin, ur, POC Negative Negative, Small, Moderate, Large Ketones, ur, POC Negative Negative Specific [place], POC 1.030 1.005 - 1.030 Blood, ur, POC Negative Negative pH, ur, POC 6.0 5.0 - 8.0 Protein, ur, POC Trace (A) Negative Urobilinogen, urine, POC 0.2 0.2 - 1.0 mg/dL Nitrite, ur, POC Negative Negative Leukocytes, ur, POC Negative Negative Lot Number [id number] COVID-19 Coronavirus RNA Nasopharyngeal Collection Time: 10/18/20 12:05 PM Specimen: Nasopharyngeal Result Value Ref Range COVID-19 RNA Negative Negative First COVID-19 test? No Employeed in healthcare? No status? Yes Group care resident? No Hospitalized? No Is patient in ICU? No Symptomatic as defined by CDC? Yes Protein / creatinine ratio, urine, random Collection Time: 10/18/20 12:30 PM Result Value Ref Range Protein, ur, quant <5.0 mg/dL Creatinine Ur 39.7 mg/dL Protein/creatinine ratio <125.9 0.0 - 180.0 mg/g CR CBC without differential Collection Time: 10/18/20 12:30 PM Result Value Ref Range WBC 10.5 (H) 3.8 - 9.9 K/cumm Hgb 10.1 (L) 11.9 - 15.5 g/dL Hct 30.5 (L) 35.6 - 45.5 % Plt 285 150 - 400 K/cumm MPV 9.5 9.1 - 12.3 fL RBC 3.47 (L) 3.90 - 5.20 M/cumm MCV 87.9 81.3 - 96.4 fL MCH 29.1 27.1 - 33.3 pg MCHC 33.1 32.3 - 35.7 g/dL RDW CV 14.3 11.1 - 14.9 % RDW SD 45.2 35.7 - 48.1 fL NRBC abs 0.00 0.00 - 0.01 K/cumm Comprehensive metabolic panel Collection Time: 10/18/20 12:30 PM Result Value Ref Range Sodium 137 135 - 145 mmol/L Potassium, pl 4.0 3.3 - 4.9 mmol/L Chloride 104 97 - 110 mmol/L CO2 24 22 - 32 mmol/L Anion gap 9 2 - 15 mmol/L BUN 6 (L) 8 - 25 mg/dL Creatinine 0.52 (L) 0.60 - 1.10 mg/dL Glucose 80 70 - 199 mg/dL Calcium 9.4 8.5 - 10.3 mg/dL Bilirubin, total 0.2 0.1 - 1.2 mg/dL Protein, pl 6.8 6.5 - 8.5 g/dL Albumin 3.5 3.5 - 5.0 g/dL Alk phos 69 40 - 130 Units/L ALT 14 7 - 45 Units/L AST 18 10 - 45 Units/L eGFR Collection Time: 10/18/20 12:30 PM Result Value Ref Range eGFR >90 90 - 130 mL/min/1.73 m2 CBC without differential Collection Time: 10/18/20 2:25 PM Result Value Ref Range WBC 10.6 (H) 3.8 - 9.9 K/cumm Hgb 10.2 (L) 11.9 - 15.5 g/dL Hct 30.6 (L) 35.6 - 45.5 % Plt 282 150 - 400 K/cumm MPV 9.7 9.1 - 12.3 fL RBC 3.51 (L) 3.90 - 5.20 M/cumm MCV 87.2 81.3 - 96.4 fL MCH 29.1 27.1 - 33.3 pg MCHC 33.3 32.3 - 35.7 g/dL RDW CV 14.4 11.1 - 14.9 % RDW SD 45.1 35.7 - 48.1 fL NRBC abs 0.00 0.00 - 0.01 K/cumm Type and screen Collection Time: 10/18/20 2:25 PM Result Value Ref Range Jose Antonio, indirect Negative ABO Rh A Positive Protime-INR Collection Time: 10/18/20 2:25 PM Result Value Ref Range PT 11.1 9.5 - 13.6 sec INR 1.0 0.9 - 1.2 aPTT Collection Time: 10/18/20 2:25 PM Result Value Ref Range aPTT 27 27 - 37 sec Fibrinogen Collection Time: 10/18/20 2:25 PM Result Value Ref Range Fibrinogen 524 (H) 170 - 400 mg/dL RBC%, quantitative Collection Time: 10/18/20 2:25 PM Result Value Ref Range Hgb F, flow cytometry <0.05 0.05 - 0.10 % CBC without differential Collection Time: 10/19/20 6:13 AM Result Value Ref Range WBC 10.5 (H) 3.8 - 9.9 K/cumm Hgb 10.3 (L) 11.9 - 15.5 g/dL Hct 30.9 (L) 35.6 - 45.5 % Plt 272 150 - 400 K/cumm MPV 9.7 9.1 - 12.3 fL RBC 3.54 (L) 3.90 - 5.20 M/cumm MCV 87.3 81.3 - 96.4 fL MCH 29.1 27.1 - 33.3 pg MCHC 33.3 32.3 - 35.7 g/dL RDW CV 14.1 11.1 - 14.9 % RDW SD 44.0 35.7 - 48.1 fL NRBC abs 0.00 0.00 - 0.01 K/cumm ASSESSMENT/PLAN Carito Bowen is a 30 y.o. at 25w5d admitted for VB in the setting of known placenta previa. #Vaginal bleeding #Placenta previa #Marginal CI -Anterior placenta previa, covers internal os -Pelvic rest, avoid digital exams -VB x2 in current , most recently 09/29, rec'ed admission, pt declined -Spotting 10/18, [facility]: Hgb 10.1->10.2, PT/PTT/fibrinogen wnl, Rh pos -No active bleeding per os on speculum exam on admission -CBC this AM stable, denies further spotting or bleeding -CTM #SLE -Current regimen: Hydroxychloroquine 200/400mg alternating days, prednisone 5mg daily, ASA 81mg -Baseline CBC/CMP, UPC <0.125 -Followed by [facility] #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 -Never saw Neuro -MRI neg #Secondary adrenal insufficiency -In s/o chronic steroid use #MARIMAR -On Zoloft 25mg daily #FWB -Dating criteria 1T US -Genetic screening LR harmony -Anatomy US 08/26/20 wnl -Date 10/07: fUS EFW 691g (59%), variable lie, BRI 12.8 -BMZ^10/20 -Mag deferred -Peds c/s pending -Next US due 10/28 -MONITORING PLAN: dNST #MWB -PNL: Rh A+/Ab neg, Rub Imm, HIV neg, HepB neg, RPR NR, GC/CT neg/neg, UCx CIG -3T labs not yet indicated -Pap 05/31/20 unsatisfactory 2/2 insufficient squamous cellularity -1hr GTT not yet indicated -Tdap not yet indicated -Placenta anterior previa -GBS to collect -MOF: TBD -MOD: If previa, pCS -MOC: TBD -CVD vaccinated x2 Dispo: continue inpatient management Chitra Fan MD 10/19/20 Cosigned by Dilan Riley MD at 10/19/2020 12:00 PM CDT Associated attestation - Dilan Riley MD - 10/19/2020 12:00 PM CDT I have seen and examined the patient on 10/19/20. I agree with the findings and plan of care as documented in the resident's/fellow's note. Long discussion that although the amount of bleeding has been minimal each time, this is the third episode of unprovoked bleeding in the setting of placenta previa, and we have concerns that future bleeding could be higher volume and pose risk to maternal or life. The most conservative option(and our recommendation) is to remain inpatient with serial assessment of placenta location, and ifit resolves in a few weeks, we can consider DC then. * Dayna Lee MD - 10/18/2020 10:42 PM CDT R2 OB Antepartum Update Patient c/o abdominal cramping and back pain and evaluated at bedside. Patient reports feeling the pain come and go but is not sure if they are ctx. Has been feeling it for about a week. Denies vaginal bleeding or LOF. Recommendation patient be placed on monitor for well being and monitoring ctx. Despite counseling, patient declines but is amendable to SSE. SSE notable for moderate amt of physiologic discharge, no bleeding. Will CTM symptoms. S/p Flexeril. Offered Tylenol, heat packs, and IVF bolus, patient amendable to tylenol. Dayna Lee MD PGY-2, Obstetrics & Gynecology documented in this encounter H&P Notes * Kyra Beatty MD - 10/18/2020 12:03 PM CDT Obstetrics H&P Chief Complaint: r/o SROM, vaginal bleeding Estimated Date of Delivery: 01/27/21 Provider: RENETTA HPI: Carito Bowen is a 30 y.o. female at 25w4d gestation, dated by 1st trimester ultrasound Her is complicated by placenta previa, marginal cord insertion, SLE, secondary adrenal insufficiency, epilepsy, ADHD, MARIMAR Endorses vaginal spotting this AM on toilet paper, no ongoing vaginal bleeding. Also endorses leakage of fluid for the last 3 days. Doesn't believe it's urine and states that the fluid occasionally runs down her leg. No contractions, feeling active movement. Of note, also endorses shortness of breath and headache over the last three days that does not resolve with Tylenol. Currently does not have headache. Also endorses nausea, vomiting, and constant RUQpain. Has vomited after every meal, but is stable from the beginning of her . Received the second dose of the COVID vaccine 6 days ago and associates these symptoms with that. Also endorses cough that began last night. 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 Patient [...] Chronic hypertension: No Diabetes: No Asthma: Yes, uses albuterol inhaler almost nightly but does not have a daily medication Past Surgical History: Procedure Laterality Date [...] Vitals: Temp: [98.3 ??F] 98.3 ??F Pulse: [89-94] 94 BP: (114)/(65) 114/65 Physical Exam: General: NAD, mood appropriate Cardiovascular: Regular rate and rhythm Pulmonary: Clear to ausculation bilaterally Abdomen: Gravid, non-tender Extremities: Warm and well perfused Speculum Exam: no pooling of fluid seen with cough/valsalva, Nitrizine test is negative, Ferning test is negative, no blood in vaginal vault, wet prep results: resulted at bedside: no pathogens Cervix: deferred in setting of known placenta previa Monitoring: Baseline: 145 bpm, Variability: Moderate, Accelerations: Present and Decelerations: None Uterine Activity: Irregular contractions Interpretation: Reactive Ultrasound: Vertex presentation Anterior placenta Previa: Yes Estimated Weight: 691g by US, date performed 10/07/20 Labs: Lab Results Component Value Date ABORH A Positive 09/29/2020 IDCOOMB Negative 09/29/2020 Rh +/Ab neg/HIV neg/Rub Imm/RPR NR/HepB Neg/HepC unk/VZV unk/GC/CT neg GBS not collected Assessment and Plan Carito Bowen is a 30 y.o. female at 25w4d who is being admitted for observation following third episode of vaginal bleeding in setting of known placenta previa. #Vaginal bleeding #Placenta previa #Marginal CI -Anterior placenta previa, covers internal os -Pelvic rest, avoid digital exams -VB x2 in current , most recently 09/29, rec'ed admission, pt declined -Spotting 10/18, [facility] labs: Hgb 10.1->10.2, PT/PTT/fibrinogen wnl, Rh pos - RBC% pending -No active bleeding per os on speculum exam - Given third episode of bleeding with known placenta previa, will admit for observation # r/o PreE - Patient with symptoms concerning for pre-eclampsia - Normotensive in [facility] - 114/ - CBC/CMP wnl, UPC <0.126 - low concern for preE at this time given normal labs #r/o SROM - SSE with no pooling, ferning negative, nitrazine negative - Low concern for PPROM given reassuring speculum exam - Low concern for vaginitis with negative wet prep - Likely physiologic discharge #SLE -Current regimen: Hydroxychloroquine 200/400mg alternating days, prednisone 5mg daily, ASA 81mg -Baseline CBC/CMP, UPC <0.125 -Followed by [facility] #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 Per pharmacy ([facility]), betamethasone has a different structure than prednisone and methylprednisolone and suspicion for allergic reaction to betamethasone is very low. -Mag deferred -Peds c/s - texted -dNST -Next US due 10/28 #MWB -PNL: Rh A+/Ab neg, Rub Imm, HIV neg, HepB neg, RPR NR, GC/CT neg/neg, UCx CIG -3T labs not yet indicated -Pap 05/31/20 unsatisfactory 03/30 insufficient squamous cellularity -1hr GTT not yet indicated -Tdap not yet indicated -Placenta anterior previa -GBS to collect -MOF: TBD -MOD: If previa, pCS -MOC: TBD -CVD vaccinated x2 Plan discussed with Dr. Genao. Kyra Beatty MD 10/18/20 Cosigned by Dilan Riley MD at 10/19/2020 11:56 AM CDT Associated attestation - Dilan Riley MD - 10/19/2020 11:56 AM CDT I have seen and examined the patient on 10/19/20. I agree with the findings and plan of care as documented in the resident's/fellow's note.. documented in this encounter Consult Notes * Segun SimmsDO - 10/19/2020 12:36 PM CDT Neonatology Consult Requesting Service: OB Requesting Provider: Dr. Riley Reason for Consult: Prematurity Counseling Details: I had the pleasure of speaking with Carito about the complications of having a premature infant at 25w5d. Carito is aware that she is having a girl and the chosen name is Mayra. Carito does have experience with premature infants, as her uncle had an with a congenital heart defect and she has a friend with a 27week in the NICU. Carito intends to breast feed her . We encouraged breast feeding during our discussion andthe importance of early initiation of pumping shortly after delivery. Carito was attentive duringour conversation and asked appropriate questions. We discussed the delivery room management of an infant born at 25w5d, describing that there would be two teams of nurses and doctors, one team for Carito and one team for her infant. We would firstassess her breathing and provide support as needed. Breathing support may include positive pressureventilation, oxygen supplementation or endotracheal intubation. We discussed the possible need for s upport such as epinephrine or chest compressions if ventilation does not facilitate adequate heart rate response. In addition, we covered the placement of a peripheral IV or an umbilical venous catheter to provide necessary medications. We then discussed the hospital course by system for infants born at 25w5d with the expectation thatthe baby would likely remain hospitalized until at least her due date, Estimated Date of Delivery: 01/27/21, in our NICU. Neurological: We discussed that the brains of infants born at 25 weeks gestation are still developing. Infants at25 weeks gestation are at risk of developmental delay, cerebral palsy, autism and ADHD. In addition, there is a risk for intracranial hemorrhage which can increase incidence of these complications. We monitor infants for intracranial hemorrhage with serial head ultrasounds during their early stay in the NICU. Ophthalmology: We discussed that the eyes of infants born at 25 weeks gestation are still developing. Infants are at risk for retinopathy of prematurity which can result in decrease in visual acuity or blindness. The pediatric ophthalmologists are [facility] will monitor Mayra at regular intervals to see if there is any concern in the eye development. At times, infants need either an intraocular medication or surgery if there is significant retinopathy of prematurity noted. Respiratory: We discussed that the lungs of infants born at 25 weeks gestation are still developing. As we discussed, in the delivery room Mayra may need an endotracheal tube and require mechanical ventilation. The amount of time that she requires the amount of help with her breathing will be variable. This time frame can be from days to weeks and will be constantly assessed during his/her time in the NICU. When she is able to tolerate having the endotracheal tube removed, we will transition her to breathing help through nasal prongs. We briefly touched on chronic lung disease as a potential complicationof prematurity. Cardiovascular: We discussed the transition from in utero environment where the ductus arteriosus is necessary to life where it is expected to close. We discussed that Mayra will be monitored for evidenceof persistence of the ductus arteriosus, which may require intervention if it is causing difficultyto the infant. Feeding: We discussed the normal developmental feeding pattern with the expectation that somewhere between 34-36 weeks of gestation, infants will begin to develop the ability to take food by mouth. Until taking food by mouth, we discussed first providing nutrition through the IV and then transitioning slowly to breast milk that will be given through a small soft tube that is inserted through her nose and goes to the stomach. We discussed the importance of breast milk especially for premature infants. Inaddition, we briefly discussed the possible complication of necrotizing enterocolitis. Infection: We discussed the possible need for antibiotics during the time in the NICU as infants are at increased risk for infection. Hematology: We discussed the possibility of jaundice as well as anemia in infants born prematurely. Thermoregulation: We discussed the need for an isolette to help keep Mayra warm and that this would be used until she is able to maintain their temperature on their own in an open crib. Finally, we discussed that before going home, the would need to be able to keep warm on their own, breathe room air, and grow while taking all food by mouth. Thank you for allowing us to participate in the care of Carito. We remain available to answer anyfurther questions and to participate in care of the baby after delivery. Counseling time to be documented by attending. Cosigned by Hazel Trejo MD at 10/19/2020 3:56 PM CDT Associated attestation - Hazel Trejo MD - 10/19/2020 3:56 PM CDT OB INPATIENT Consult Attestation: I have reviewed the medical record and have seen and met the patient for consultation on 10/19/2020. I have reviewed and agree with the findings and assessment documented by the clinical fellow. I personally discussed the documented plan with thefamily and spent a total of 35 minutes in care of this patient, of which more than 50% was spent oncoordinating with DOPE [employer]ER, counseling of the patient/family, and NICU care coordination. Hazel Trejo MD 10/19/2020 3:55 PM Attending Performance Improvement Coordinator documented in this encounter Nursing Notes * Stacie Mcmullen, RN - 10/18/2020 10:15 PM CDT Pt reports lower abdominal cramping and pressure to this nurse. Pt denies bleeding and denies changes in LOF at this time. Reports pain is intermittent and radiating to lower back. This nurse attempted to place patient on monitoring for wellbeing, however patient only agreed to the Tocomonitor for contraction like symptoms. Rc Lee MD aware. New orders for PRN Tylenol and Flexeril (See MAR). Patient accepted the Flexeril however declined PRN Tylenol at this time. Pt willing to try monitoring for short time then proceeded to take off both monitoring and toco monitoring. Pt states. I don't like the way the straps squeeze my belly. It makes my pain worse . Rc Lee MD aware patient removed themselves from the monitor then presented to patient's bedside.Pt agreed to speculum exam. Pt offered IVF bolus and Tylenol for contraction like pain which patient declined. Pt offered abdominal binder versus monitoring straps and heat packs for monitoring which were declined. documented in this encounter Miscellaneous Notes * Significant Event - Pooja Roche MD PhD - 10/19/2020 5:10 PM CDT R3 APU Notified by RN that patient desiring to be discharged from hospital. Does not believe bleeding fromyesterday was significant enough to warrant remaining inpatient. To bedside to discuss risks/benefits of continued inpatient management. Pt counseled that today's formal US still demonstrated a complete placenta previa overlying the internal os. In the setting of complete placenta previa, now s/p 3 bleeding episodes in the outpatient setting, recommendation would be for inpatient management until delivery or resolution of previa. Wediscussed the unpredictable nature of bleeding from a placenta previa, and that while her most recent bleed was not large volume, this does not predict the severity of any future events, and bleedingfrom a placenta previa could be potentially life threatening (both maternal and risk). We discussed that in the event of significant bleeding, if hospitalized this would allow timely and adequate maternal resuscitation as well as management in the form of delivery via section. We also discussed that if this were to occur at her current gestational age, by remaining inpatient NICU personal would be available for resuscitation. She voices understands of risks and is able to verbalize back the risk of possible life threatening hemorrhage. She states that if she were to bleed she would present to the nearest available hospital ([facility]) for management. Ms. Bowen is aware that support and resuscitation at that facility may be limited at this gestational age. We also discussed that she has received 1 dose of betamethasone to aid in lung maturity, and would be leaving prior to second dose. She was counseled that clinical data regarding the benefit ofBMZ on lung maturity and outcomes, especially at her current early gestational age, have only demonstrated benefit with a 2 dose regimen, and that by not receiving the second dose those studies would suggest there will not be a derived benefit from the single dose received. Shevoices understanding of this. Offered to patient that she could return outpatient to triage for administration of second dose this evening, she states she does not like the way the steroid makes her feel and declines the second dose at this time. Ultimately, patient voices understanding of the risks she assumes by discharging. She knows that she may present at any time for further care should she desire. We will schedule follow up in the outpatient setting to appropriately follow her for her current conditions. Pooja Roche MD PhD Cosigned by Dilan Riley MD at 10/20/2020 12:32 PM CDT * Plan of Care - Kendra Kraft RN - 10/19/2020 8:43 AM CDT Problem: Lack of Knowledge: Goal: Knowledge of disease or condition and prescribed therapeutic regimen will improve Outcome: Progressing Problem: Coping: Goal: Level of anxiety will decrease Outcome: Progressing Problem: Fluid Volume: Goal: Will achieve and/or maintain a balanced intake and output Outcome: Progressing Problem: Physical Regulation: Goal: Complications related to the disease process, condition or treatment will be avoided or minimized Outcome: Progressing Problem: Sensory: Goal: Pain level will decrease Outcome: Progressing Problem: Tissue Perfusion: Goal: Will achieve and/or maintain hemodynamic stability Outcome: Progressing Problem: Coping: Goal: Level of anxiety will decrease Outcome: Progressing Problem: Fluid Volume: Goal: Will achieve and/or maintain a balanced intake and output Outcome: Progressing Problem: Physical Regulation: Goal: Complications related to the disease process, condition or treatment will be avoided or minimized Outcome: Progressing Problem: Sensory: Goal: Pain level will decrease Outcome: Progressing Goals: Clinical Goals for the Shift: VSS Summary: * Hospital Course - Munday, Chitra Miller MD - 10/19/2020 7:35 AM CDT Carito Bowen is a 30 y/o at 25w5d admitted with vaginal bleeding in setting of known placenta previa. #Vaginal bleeding #Placenta previa #Marginal CI Patient presented to [facility] 10/18 with vaginal spotting on toilet paper. No ongoing vaginal bleeding onpresentation. She also endorsed leakage of fluid for 3 days. Denied contractions, feeling active movement. Patient known to have an anterior placenta previa, covering internal os. She has had two prior episodes of vaginal bleeding this , most recently 09/29. Inpatient admission was recommended at this time, patient declined. Labs on admission Hgb 10.1->10.2, PT/PTT/fibrinogen wnl,Rh pos. No active bleeding per os on speculum exam on admission. CBC 10/19 stable, patient denied further bleeding or spotting. Repeat formal US on 10/19 was consistent with anterior placenta with complete previa. Patient received first dose of betamethasone for lung maturity on 10/18, but declined second dose following counseling. On 10/19, patient expressed desire to leave [facility]. She was counseled extensively on recommendations for inpatient management and given strict return precautions. #SLE Current regimen Hydroxychloroquine 200/400mg alternating days, prednisone 5mg daily, ASA 81mg continued while inpatient. Baseline CBC/CMP, UPC <0.125. Patient followed by [facility]. 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 MRI neg. #Secondary adrenal insufficiency In s/o chronic steroid use. #MARIMAR Continued on Zoloft 25mg daily while admitted. #FWB -Dating criteria 1T US -Genetic screening LR harmony -Anatomy US 08/26/20 wnl -Date 10/07: fUS EFW 691g (59%), variable, BRI 12.8 -BMZ^10/20 -Mag deferred -dNST -Next US due 10/28 #MWB -PNL: Rh A+/Ab neg, Rub Imm, HIV neg, HepB neg, RPR NR, GC/CT neg/neg, UCx CIG -3T labs not yet indicated -Pap 05/31/20 unsatisfactory 2/2 insufficient squamous cellularity -1hr GTT not yet indicated -Tdap not yet indicated -Placenta anterior previa -GBS to collect -MOF: breast -MOD: If previa, pCS -MOC: considering vasectomy for partner -CVD vaccinated x2 * Plan of Care - Stacie Mcmullen RN - 10/18/2020 8:55 PM CDT Problem: Lack of Knowledge: Goal: Knowledge of disease or condition and prescribed therapeutic regimen will improve Outcome: Progressing Problem: Coping: Goal: Level of anxiety will decrease Outcome: Progressing Problem: Fluid Volume: Goal: Will achieve and/or maintain a balanced intake and output Outcome: Progressing Problem: Physical Regulation: Goal: Complications related to the disease process, condition or treatment will be avoided or minimized Outcome: Progressing Problem: Sensory: Goal: Pain level will decrease Outcome: Progressing Problem: Tissue Perfusion: Goal: Will achieve and/or maintain hemodynamic stability Outcome: Progressing Goals: Clinical Goals for the Shift: VSS Summary: Vitals WNL upon 2000 set. Pt resting in bed. documented in this encounter Plan of Treatment Not on file documented as of this encounter Procedures Procedure Name Priority Date/Time Associated Diagnosis Comments US OB LIMITED IP Routine 10/19/2020 9:27 AM CDT CBC WITHOUT DIFFERENTIAL Routine 10/19/2020 6:13 AM CDT RBC%, QUANTITATIVE Timed 10/18/2020 2:25 PM CDT APTT Timed 10/18/2020 2:25 PM CDT PROTIME-INR Timed 10/18/2020 2:25 PM CDT FIBRINOGEN Routine 10/18/2020 2:25 PM CDT CBC WITHOUT DIFFERENTIAL Timed 10/18/2020 2:25 PM CDT TYPE AND SCREEN Timed 10/18/2020 2:25 PM CDT EGFR Routine 10/18/2020 12:30 PM CDT PROTEIN / CREATININE RATIO, URINE, RANDOM Routine 10/18/2020 12:30 PM CDT CBC WITHOUT DIFFERENTIAL Routine 10/18/2020 12:30 PM CDT COMPREHENSIVE METABOLIC PANEL Routine 10/18/2020 12:30 PM CDT COVID-19 CORONAVIRUS RNA Routine 10/18/2020 12:05 PM CDT POCT URINALYSIS DIPSTICK Routine 10/18/2020 10:40 AM CDT documented in this encounter Results * US Ob Limited (10/19/2020 9:27 AM CDT) Fetus# Fetus1 VIEWPOINT Placenta Details anterior, Complete previa, no placental masses VIEWPOINT Presentation Transverse Lie - High VIEWPOINT Anatomical Region Laterality Modality Abdomen N/A Ultrasound 10/19/2020 9:28 AM CDT us Dilan Riley MD IMG OB US PROCEDU RES Final Result * (ABNORMAL) CBC without differential (10/19/2020 6:13 AM CDT) WBC 10.5(H) 3.8 - 9.9 K/cumm [facility] Hgb 10.3(L) 11.9 - 15.5 g/dL [facility] Hct 30.9(L) 35.6 - 45.5 % [facility] Plt 272 150 - 400 K/cumm [facility] MPV 9.7 9.1 - 12.3 fL [facility] RBC 3.54(L) 3.90 - 5.20 M/cumm [facility] MCV 87.3 81.3 - 96.4 fL [facility] MCH 29.1 27.1 - 33.3 pg [facility] MCHC 33.3 32.3 - 35.7 g/dL [facility] RDW CV 14.1 11.1 - 14.9 % [facility] RDW SD 44.0 35.7 - 48.1 fL [facility] NRBC abs 0.00 0.00 - 0.01 K/cumm [facility] Blood 10/19/2020 6:13 AM CDT 10/19/2020 6:30 AM CDT Dilan Riley MD LAB BLOOD ORDERAB LES Final Result [facility] Department [place] [address] * RBC%, quantitative (10/18/2020 2:25 PM CDT) Hgb F, flow cytometry <0.05 0.05 - 0.10 % [facility] Comment: Interpretive data: ? ? RhIg administration [...] and its performance characteristics determined by the [facility] Flow Cytometry laboratory. It has not been cleared or approved by the [place] Food and Drug Administration. This test is used for clinical purposes. It should not be regarded as investigational or for research. This laboratory is certified under the Clinical Laboratory Improvement Amendments (CLIA) as qualified to perform high complexity clinical laboratory testing. Current Interpretative data was last revised on 19. Blood 10/18/2020 2:25 PM CDT 10/18/2020 2:57 PM CDT us Dilan Riley MD LAB BLOOD BANK TE ST ORDERABLES Final Result [facility] Department [place] [address] * (ABNORMAL) Fibrinogen (10/18/2020 2:25 PM CDT) Fibrinogen 524(H) 170 - 400 mg/dL [facility] Blood 10/18/2020 2:25 PM CDT 10/18/2020 2:55 PM CDT Dilan Riley MD LAB BLOOD ORDERAB LES Final Result Performing Organization Address [facility] de Phone Number [facility] [place] [address] * aPTT (10/18/2020 2:25 PM CDT) aPTT 27 27 - 37 sec [facility] Comment: Interpretive Data Therapeutic heparin range: 60.0 - 94.0 seconds. Based on correlation with therapeutic heparin activity range of 0.3-0.7 Units/mL. Current interpretive data was last revised on 2020. Blood 10/18/2020 2:25 PM CDT 10/18/2020 2:55 PM CDT Dilan Riley MD LAB BLOOD ORDERAB LES Final Result Performing Organization Address [facility] [place] [address] * Protime-INR (10/18/2020 2:25 PM CDT) PT 11.1 9.5 - 13.6 sec [facility] INR 1.0 0.9 - 1.2 [facility] Comment: Interpretive data Oral anticoagulant therapeutic ranges: Venous thromboembolism prophylaxis or treatment: 2.0-3.0 CARDIOLOGY Standard range: 2.0-3.0 High-intensity range: 2.5-3.5 Refer to indication-specific guidelines for appropriate target ranges for prosthetic heart valve replacement. Current interpretive data was last revised on 2019. Blood 10/18/2020 2:25 PM CDT 10/18/2020 2:55 PM CDT Dilan Riley MD LAB BLOOD ORDERAB LES Final Result Performing Organization Address [facility]/ZIP Co de Phone Number [facility] [place] [address] * Type and screen (10/18/2020 2:25 PM CDT) [facility] Jose Antonio, indirect Negative [facility] ABO Rh A Positive [facility] Blood 10/18/2020 2:25 PM CDT 10/18/2020 2:51 PM CDT Narrative [facility] - 10/18/2020 3:51 PM CDT Has the patient had Daratumumab or Isatuximab in the past 6 months?->Unknown Dilan Riley MD LAB BLOOD BANK ST ORDERABLES Final Result Performing Organization Address [facility] de Phone Number [facility] Department [place] [address] * (ABNORMAL) CBC without differential (10/18/2020 2:25 PM CDT) [facility] WBC 10.6(H) 3.8 - 9.9 K/cumm [facility] Hgb 10.2(L) 11.9 - 15.5 g/dL [facility] Hct 30.6(L) 35.6 - 45.5 % [facility] Plt 282 150 - 400 K/cumm [facility] MPV 9.7 9.1 - 12.3 fL [facility] RBC 3.51(L) 3.90 - 5.20 M/cumm [facility] MCV 87.2 81.3 - 96.4 fL [facility] MCH 29.1 27.1 - 33.3 pg [facility] MCHC 33.3 32.3 - 35.7 g/dL [facility] RDW CV 14.4 11.1 - 14.9 % [facility] RDW SD 45.1 35.7 - 48.1 fL [facility] NRBC abs 0.00 0.00 - 0.01 K/cumm [facility] Blood 10/18/2020 2:25 PM CDT 10/18/2020 2:57 PM CDT us Dilan Riley MD LAB BLOOD ORDERAB LES Final Result Performing Organization Address [facility] Co de Phone Number [facility] Department [place] [address] * eGFR (10/18/2020 12:30 PM CDT) Pathologist [facility] eGFR >90 90 - 130 mL/min/1.7 3 m2 [facility] Comment: Interpretive Data Reference Interval Normal [...] interpretive data was last reviewed 2020 Blood 10/18/2020 12:3 0 PM CDT 10/18/2020 1:05 PM CDT us Dilan Riley MD LAB BLOOD ORDERAB LES Final Result Performing Organization Address [facility] Co de Phone Number [facility] Department [place] [address] * (ABNORMAL) Comprehensive metabolic panel (10/18/2020 12:30 PM CDT) Sodium 137 135 - 145 mmol/L [facility] Potassium, pl 4.0 3.3 - 4.9 mmol/L [facility] Chloride 104 97 - 110 mmol/L [facility] CO2 24 22 - 32 mmol/L [facility] Anion gap 9 2 - 15 mmol/L [facility] BUN 6(L) 8 - 25 mg/dL [facility] Creatinine 0.52(L) 0.60 - 1.10 mg/dL [facility] Glucose 80 70 - 199 mg/dL [facility] Comment: Interpretive Data Fasting glucose >/= [...] 2017. Calcium 9.4 8.5 - 10.3 mg/dL [facility] Bilirubin, total 0.2 0.1 - 1.2 mg/dL [facility] Protein, pl 6.8 6.5 - 8.5 g/dL [facility] Albumin 3.5 3.5 - 5.0 g/dL [facility] Alk phos 69 40 - 130 Units/L [facility] ALT 14 7 - 45 Units/L [facility] AST 18 10 - 45 Units/L [facility] Blood 10/18/2020 12:3 0 PM CDT 10/18/2020 1:02 PM CDT us Dilan Riley MD LAB BLOOD ORDERAB LES Final Result [facility] Department [place] [address] * (ABNORMAL) CBC without differential (10/18/2020 12:30 PM CDT) [facility] WBC 10.5(H) 3.8 - 9.9 K/cumm [facility] Hgb 10.1(L) 11.9 - 15.5 g/dL [facility] Hct 30.5(L) 35.6 - 45.5 % [facility] Plt 285 150 - 400 K/cumm [facility] MPV 9.5 9.1 - 12.3 fL [facility] RBC 3.47(L) 3.90 - 5.20 M/cumm [facility] MCV 87.9 81.3 - 96.4 fL [facility] MCH 29.1 27.1 - 33.3 pg [facility] MCHC 33.1 32.3 - 35.7 g/dL [facility] RDW CV 14.3 11.1 - 14.9 % [facility] RDW SD 45.2 35.7 - 48.1 fL [facility] NRBC abs 0.00 0.00 - 0.01 K/cumm [facility] Blood 10/18/2020 12:3 0 PM CDT 10/18/2020 1:02 PM CDT Dilan Riley MD LAB BLOOD ORDERAB LES Final Result [facility] Department [place] [address] * Protein / creatinine ratio, urine, random (10/18/2020 12:30 PM CDT) [facility] Protein, ur, quant <5.0 mg/dL [facility] Comment: Interpretive Data No reference range established. Current interpretive data was last revised 2018. Creatinine Ur 39.7 mg/dL [facility] Comment: Interpretive Data No reference range established. Current interpretive data was last revised 2018. Protein/creatinin e ratio <125.9 0.0 - 180.0 mg/g CR [facility] Urine 10/18/2020 12:3 0 PM CDT 10/18/2020 1:02 PM CDT Dilan Riley MD LAB URINE ORDERAB LES Final Result Performing Organization Address City/[facility]/ZIP Co de Phone Number [facility] Department [place] [address] * COVID-19 Coronavirus RNA Nasopharyngeal (10/18/2020 12:05 PM CDT) COVID-19 RNA Negative Negative [facility] Comment: Interpretive data: Synonyms for this test include: PCR and NAAT . ??This test is performed using the PlasmaSi Xpert Xpress assay. This is a real-time [...] revised April 01, 2020. First COVID-19 test? No [facility] Employeed in healthcare? No [facility] status? Yes [facility] Group care resident? No [facility] Hospitalized? No [facility] Is patient in ICU? No [facility] Symptomatic as defined by CDC? Yes [facility] Nasopharyngeal 10/18/2020 12 :05 PM CDT 10/18/2020 1:11 PM CDT Narrative [facility] - 10/18/2020 2:24 PM CDT What is the reason for testing?->Symptomatic (not immunocompromised) Date of Symptom Onset->10/15/20 Dilan Riley MD LAB MICROBIOLOGY - GENERAL ORDERABLES Final Result Performing Organization Address City/[facility]/ZIP Co de Phone Number [facility] Department [place] [address] * (ABNORMAL) POCT urinalysis dipstick (10/18/2020 10:40 AM CDT) Color, Urine, POC Dark Yellow Clarity, ur, POC Clear Clear Glucose, ur, POC Negative Negative mg/dL Bilirubin, ur, POC Negative Negative, Small, Moderate, Large Ketones, ur, POC Negative Negative Specific [place], POC 1.030 1.005 - 1.030 Blood, ur, POC Negative Negative pH, ur, POC 6.0 5.0 - 8.0 Protein, ur, POC Trace(A) Negative Urobilinogen, urine, POC 0.2 0.2 - 1.0 mg/dL Nitrite, ur, POC Negative Negative Leukocytes, ur, POC Negative Negative Lot Number [id number] Urine 10/18/2020 10:4 0 AM CDT Lorena Huerta NP POINT OF CARE TEST ORDERABLES Final Result documented in this encounter Visit Diagnoses Not on filedocumented in this encounter Administered Medications Inactive Administered Medications - up to 3 most recent administrations Medication Order MAR Action Action Date Dose Rate Site acetaminophen (TYLENOL) tablet 1,000 mg 1,000 mg, oral, Every 6 hours PRN, 1st line for pain, Starting on Sun10/18/20 at 2138 aspirin enteric coated tablet 81 mg 81 mg, oral, Daily, First dose (after last modification) on Sun10/19/20 at 0900, Do not crush, chew, cut, dissolve, open or otherwise manipulate tablet/capsule. Given 10/19/2020 9:16 AM CDT 81 mg betamethasone (CELESTONE) injection 12 mg 12 mg, intramuscular, Every 24 hours, First dose on Sun10/18/20 at 1745, For 2 doses Given 10/18/2020 7:45 PM CDT 12 mg Right Dorsogluteal/B uttock cyclobenzaprine (FLEXERIL) tablet 10 mg 10 mg, oral, 3 times daily PRN, muscle spasms, Starting on Sun10/18/20 at 2139 Given 10/18/2020 9:54 PM CDT 10 mg diphenhydrAMINE (BENADRYL) tab/cap 25 mg 25 mg, oral, 4 times daily PRN, itching, other, flushing, Starting on Sun10/19/20 at 1645 hydrOXYchloroQUINE (PLAQUENIL) tablet 200 mg 200 mg, oral, Nightly, First dose on Sun10/18/20 at 2145, Do not crush, break, or open. Administer with food to decrease GI adverse effects if tolerating a diet. Oral liquid is preferred for per tube administration. tered if oral liquid is unavailable. Given 10/18/2020 9:27 PM CDT 200 mg Lactated Ringer's (LR) bolus 1,000 mL 1,000 mL, intravenous, at 1,000 mL/hr, Administer over 1 Hours, Once, On Sun10/18/20 at 1700, For 1 dose New Bag 10/18/2020 4:24 PM CDT 1,000 mL 1000 mL/hr ondansetron ODT (ZOFRAN-ODT) disintegrating tablet 8 mg 8 mg, oral, 2 times daily, First dose on Sun10/18/20 at 2100 Given 10/19/2020 9:16 AM CDT 8 mg predniSONE (DELTASONE) tablet 5 mg 5 mg, oral, Daily, First dose (after last modification) on Sun10/19/20 at 0700 Given 10/19/2020 6:32 AM CDT 5 mg sertraline (ZOLOFT) tablet 25 mg 25 mg, oral, Nightly, First dose (after last modification) on Sun10/18/20 at 2145 Given 10/18/2020 9:27 PM CDT 25 mg documented in this encounter Discontinued Medications Medication Sig Discontinue Reason Start Date End Da te sertraline (ZOLOFT) 50 mg tablet Take 1.5 tablets (75 mg total) by mouth daily Dose adjustment 08/12/2020 10/19/2020 documented as of this encounter Historical Medications * This list may reflect changes made after this encounter. Medication Sig Dispense Quantity Refills Last Filled Start D ate End Date sertraline (ZOLOFT) 25 mg tablet 10/18/2020 08/15/2021 added in this encounter Active and Recently Administered Medications Times are shown in CDT. Scheduled Medication Order 10/17/2020 10/18/2020 10/19/2020 aspirin enteric coated tablet 81 mg 81 mg, oral, Daily, First dose (after last modification) on Sun10/19/20 at 0900, Do not crush, chew, cut, dissolve, open or otherwise manipulate tablet/capsule. 915 (Given - Provid er: Kendra Kraft, PRO) betamethasone (CELESTONE) injection 12 mg 12 mg, intramuscular, Every 24 hours, First dose on Sun10/18/20 at 1745, For 2 doses 1945 (Given - Provider: Stacie Mcmullen RN) hydrOXYchloroQUINE (PLAQUENIL) tablet 200 mg 200 mg, oral, Nightly, First dose on Sun10/18/20 at 2145, Do not crush, break, or open. Administer with food to decrease GI adverse effects if tolerating a diet. Oral liquid is preferred for per tube administration. tered if oral liquid is unavailable. 2126 (Given - Provider: Stacie Mcmullen RN) Lactated Ringer's (LR) bolus 1,000 mL (COMPLETED) 1,000 mL, intravenous, at 1,000 mL/hr, Administer over 1 Hours, Once, On Sun10/18/20 at 1700, For 1 dose 1624 (New Bag - Provider: Ritika Thayer RN)1734 (Stopped - Provider: Elena Sanchez RN) ondansetron ODT (ZOFRAN-ODT) disintegrating tablet 8 mg 8 mg, oral, 2 times daily, First dose on Sun10/18/20 at 2100 2128 (Not Given - Provider: Stacie Mcmullen RN - Reason: Patient/family refused) 915 (Given - Provider: Kendra Kraft, PRO) predniSONE (DELTASONE) tablet 5 mg 5 mg, oral, Daily, First dose (after last modification) on Sun10/19/20 at 0700 0632 (Given - Provid er: Shaye Rodney RN) sertraline (ZOLOFT) tablet 25 mg 25 mg, oral, Nightly, First dose (after last modification) on Sun10/18/20 at 2145 2127 (Given - Provider: Stacie Mcmullen RN) sodium chloride 0.9% flush 0.5-20 mL 0.5-20 mL, intra-catheter, Every 8 hours scheduled, First dose on Sun10/18/20 at 2200, L&D Pre-Delivery, Flush volume based on line type and size. 2200 (Due) 0600 (Due)1504 (Not Given - Provider: Kendra Kraft RN - Reason: IV Infusing) PRN Medication Order 10/17/2020 10/18/2020 10/19/2020 acetaminophen (TYLENOL) tablet 1,000 mg 1,000 mg, oral, Every 6 hours PRN, 1st line for pain, Starting on Sun10/18/20 at 2138 2158 (Not Given - Provider: Stacie Mcmullen RN - Reason: Patient/family refused) cyclobenzaprine (FLEXERIL) tablet 10 mg 10 mg, oral, 3 times daily PRN, muscle spasms, Starting on Sun10/18/20 at 2139 2154 (Given - Provider: Joni Mcmullen RN) 0914 (Due) diphenhydrAMINE (BENADRYL) tab/cap 25 mg 25 mg, oral, 4 times daily PRN, itching, other, flushing, Starting on Sun10/19/20 at 1645 sodium chloride 0.9% flush 0.5-20 mL 0.5-20 mL, intra-catheter, As needed, line care, Starting on Sun10/18/20 at 1811, L&D Pre-Delivery, Flush volume based on line type and size. Flush before and after each use. documented in this encounter Orders Medications Ordered That Omer ht Not Have Been Administered Count Last Ordered Date First Ordered Date diphenhydrAMINE (BENADRYL) tab/cap 25 mg 1 10/19/2020 acetaminophen (TYLENOL) tablet 1,000 mg 1 0 10/18/2020 aspirin enteric coated tablet 81 mg 1 10/18 hydrOXYchloroQUINE (PLAQUENI L) tablet 200 mg 2 10/18/2020 hydrOXYchloroQUINE (PLAQUENI L) tablet 400 mg 3 10/18/2020 predniSONE (DELTASONE) tablet 5 mg 2 2020 sertraline (ZOLOFT) tablet 25 mg 2 10/19/19 21 sertraline (ZOLOFT) tablet 75 mg 1 10/19/19 21 sodium chloride 0.9% flush 0.5-20 mL 4 09/27 Nursing Count Last Ordered Date First Orde red Date VITAL SIGNS 1 10/18/2020 CORE MEASURES Count Last Ordered Date First Ord ered Date REASON FOR NO VTE PROPHYLAXIS AT ADMISSION 1 10/18/2020 documented in this encounter Additional Health Concerns Infection Onset Date Last Indicated Resolved Time COVID: Suspected 10/18/2020 10/18/2020 10/18/2020 2:26 PM CDT documented as of this encounter Care Teams Skip Load Driver Relationship Specialty [place] [address] [place] [address] PCP - General 07/04/19 [place] [address] [place] [address] 11/16/18 Ernie Shaw MD [address] [facility] [address] [place] [address] Colorer Machine Obstetrics and Gynecology 06/10/20 documented as of this encounter
--- OUTSIDE RECORDS SUMMARY | 2024-02-24 20:06 | XMS_ITS | Encounter Summary ---
Author Organization [facility] Address [address] [place] [address] Phone Care Team Providers Care Display Card Writer Name Role Phone Huseyin Dangelo MD Unavailable [phone] Brian Mon MD Primary Care Provider + Ernie Shaw MD Unavailable [phone] Reason for Referral * Diagnostic Imaging (Routine) - Closed Specialty Diagnoses / Procedures Referred By Contac t Referred To Contact Diagnoses Lupus Procedures US Ob Follow Up Kathia Rodríguez NP [address] [facility] [phone] [place] [address] Phone: tel: fax: [facility] (All Locations) Referral ID Status Reason Start Date Expiration Date Visits Re quested Visits Authorized [id number] Closed 10/07/2020 02/25/2021 1 12 Reason for Visit * Reason Comments High Risk Gestation Encounter Details Date Type Department Care Team (Late st Contact Info) Description 10/07/2020 11:15 AM CDT [facility] [address] [facility] Health 7th Floor [address] [place] [id number] Kathia Rodríguez NP [phone] [facility] [phone] [place] [address] Lupus (CMS/HCC) (HCC) (Primary Dx); Marginal insertion of umbilical cord affecting management of mother in second trimester; Supervision of high-risk , unspecified trimester; Generalized anxiety disorder; Placenta previa specified as without hemorrhage in second trimester; Secondary adrenal insufficiency (CMS/HCC) (HCC); Left arm pain Social History Tobacco Use Types Packs/Day [...] Sign Reading Time Taken Comments Blood Pressure 102/78 10/07/2020 10:41 AM CDT Pulse 98 10/07/2020 10:41 AM CDT Temperature - - Respiratory Rate - - Oxygen Saturation 98% 10/07/2020 10:41 AM CDT Inhaled Oxygen Concentration - - Weight 81.7 kg (180 lb 3.2 oz) 10/07/2020 10:41 AM CDT Height 160 cm (5' 3 ) 10/07/2020 10:41 AM CDT Body Mass Index 31.92 10/07/2020 10:41 AM CDT documented in this encounter Progress Notes * Kathia Rodríguez, KINGA - 10/07/2020 11:15 AM CDT [facility] Return Visit 10/07/2020 Carito Spence is a 30 y.o. at 24w0d who is here for a return OB visit. Her iscomplicated by lupus, adrenal insufficeny, 2nd trimester loss and anxiety. Subjective: Reports pain in her left breast and down her left arm. She denies SOB or chest pain andfeels it is nerve or muscular in nature. The pain started 5 days ago. Recently went to her PCP who r/o for a blood clot. The pain shoots down into her left hand. She denies contractions, loss of fluid, or vaginal bleeding and reports positive movement. Objective: BP 102/78 Pulse 98 Ht 160 cm (5' 3 ) Wt 180 lb 3.2 oz (81.7 kg) LMP (LMP Unknown) Comment: LMP end of Mar 2020 SpO2 98% BMI 31.92 kg/m?? General: NAD Breast: normal breast exam bilaterally, no abnormal lumps, skin changes or nipple discharge noted Abdomen: Soft, gravid, NT, FHR + Extremities: WWP, no edema Ultrasound: 10/07/2020 AGA, previa noted- see finalized US report Assessment/Plan: Carito Spence is a 30 y.o. at 24w0d with a complicated by the following: Problem List MANE 01/30/21 Lupus ([facility]) ([facility]) - Primary Overview S/p counseling at initial visit Plan: -Currently takinghydroxychloroquine to 200 mg alternating with 400 mg every other day, prednisone 5mg daily -Discussion with rheum in starting azothiaprine - discontinued benlysta after counseling d/t concerns -Serial growths - testing at 32 weeks -81 mg ASA at 12 weeks -BMP q trimester for renal surveillance. -Baseline preElabs, P:C 91 Relevant Orders US Ob Follow Up Secondary adrenal insufficiency (CMS/[facility]) ([facility]) Overview Carito has a history of possible secondary adrenal insufficiency 2/2 chronic steroid use for her lupus. She is currently on prednisone 5 mg for her lupus. She was advised to transition to hydrocortisone or higher dose prednisone by endocrinology during her and stress-dose steroids were discussed. S/p counseling at initial visit Generalized anxiety disorder Overview Ms spence reports severe anxiety and near panic in this thus far. This is not a new issuefor her, but it has significantly worsened in . 08/26: feels Zoloft is helping. S/p counseling at initial visit Plan: -[facility] referral, following -Zoloft 25 mg/day - psych referral Marginal insertion of umbilical cord affecting management of mother in second trimester Overview Marginal cord insertion can be associated with growth restriction. Will plan on growth assessment every 3-4 weeks starting around 24 weeks gestation. Placenta previa specified as without hemorrhage in second trimester Overview Anterior placenta previa. Reviewed bleeding precautions, avoidance of sex and digital exams. Re-evaluate placental location ~ 28 or sooner if clinically indicated Left arm pain Overview Reports pain started [...] we will discuss a referral for imagining. [facility] precautions reviewed. Supervision of high-risk , unspecified trimester Overview Patient is requesting full JCARLOS to [facility]. She will speak with her primary OB. [] Co-management vs. [x] Full [facility] Care; [] Red Team [] Blue Team Referring Provider: Dr. Sheldon Delgado [x] Dating Criteria: US 06/04/20 with MANE 01/30/21 [] Labs: Rh [ A+], Ab [Neg ], Rubella [Imm ], HIV [Neg ], HepBSAg [Neg ], RPR [NR ], GC/CT[negative/negative] [x] Genetic Screening: [place] low risk 07/09 [x] CBC/Hgb 11.7/35.0/306 [x] Early 1hr GTT (if indicated) [] UCx: [x] Pap: 05/31/20 unsatisfactory for evaluation due to insufficient squamous cellularity [x] LD ASA (if indicated) starting at 12 weeks: [] EPDS [ ]; PNBHS referral (if indicated) 2nd Tri Labs: [x] Anatomy ultrasound [] CBC/1hr gtt at 24-28wks: [] Flu Shot (Sep-Jan): [] Tdap (27-36wks): [] COVID Vaccine: s/p 1st dose, plans to get 2nd dose 10/07/2020 3rd Tri Labs: [] CBC/HIV/RPR: [] GBS: [] COVID testing: Counselling [] MOD: [] Place of delivery: desires delivery at T [] MOC: [] Method of feeding: [] Recreation Assistant: [] PP Depression Discussed: Specialty Infusion Treatment Lupus (CMS/HCC) (HCC) - Primary Overview S/p counseling at initial visit Plan: -Currently takinghydroxychloroquine to 200 mg alternating with 400 mg every other day, prednisone 5mg daily -Discussion with rheum in starting azothiaprine - discontinued benlysta after counseling d/t concerns -Serial growths - testing at 32 weeks -81 mg ASA at 12 weeks -BMP q trimester for renal surveillance. -Baseline preElabs, P:C 91 Relevant Orders US Ob Follow Up PTL/PEC/FKC precautions reviewed. Reviewed the importance of presenting to her closest hospital in the case of an emergency for evaluation and if necessary and safe will be transferred to T. Thank you for allowing me to participate in the care of this manohar patient. If you have any questions or concerns do not hesitate to contact our office. Sincerely, KATHRIN Carballo documented in this encounter Plan of Treatment Not on file documented as of this encounter Results * US Ob Follow Up (10/26/2020 11:57 AM CDT) Fetus# Fetus1 VIEWPOINT Placenta Details anterior, Previa-yes VIEWPOINT Estimated Weight 1,040 g&grams VIEWPOINT Presentation Transverse Lie VIEWPOINT Anatomical Region Laterality Modality Abdomen N/A Ultrasound 10/26/2020 12:3 6 PM CDT us Kathia Rodríguez ONLINE USER EXPERIENCE STRATEGIST IMG OB US PROCEDURE S Final Result documented in this encounter Visit Diagnoses Diagnosis Lupus- Primary Systemic lupus erythematosus Marginal insertion of umbilical cord affecting management of mother in second trimester Supervision of high-risk , unspecified trimester Generalized anxiety disorder Placenta previa specified as without hemorrhage in second trimester Secondary adrenal insufficiency (HCC) Left arm pain Pain in soft tissues of limb documented in this encounter Care Teams Display Card Writer Relationship Specialty [place] [address] [place] [address] PCP - General 07/04/19 [place] [address] [address] [place] [address] 11/16/18 Ernie Shaw MD [address] [place] [address] [address] [place] [address] Manager Unit Obstetrics and Gynecology 06/10/20 documented as of this encounter
--- OUTSIDE RECORDS SUMMARY | 2024-02-24 20:06 | XMS_ITS | Encounter Summary ---
Author Organization [facility] Address [address] [place] [address] Care Team Providers Care End User Consultant Name Role Phone Huseyin Dangelo MD Unavailable [phone] Brian Mon MD Primary Care Provider + Ernie Shaw MD Unavailable [phone] Encounter Details Date Type Department Care Team (Late st Contact Info) Description 09/24/2020 - 09/24/2020 11:36 AM CDT Emergency [facility] Emergency Department [address] [place], [place] [id number] Unknown, Notinfile Discharge Disposition: ED Dismiss - [...] on filedocumented in this encounter Care Teams End User Consultant Relationship Specialty [place] [address] [place] [address] PCP - General 07/04/19 [place] [address] [place] [address] 11/16/18 Ernie Shaw MD [address] [place] [address] [address] [place] [address] Glass Mould Cleaner Obstetrics and Gynecology 06/10/20 documented as of this encounter
--- OUTSIDE RECORDS SUMMARY | 2024-02-24 20:07 | XMS_ITS | Encounter Summary ---
Author Organization [facility] [employer] [facility] Address [address] [place] [address] Phone Care Team Providers Care Refrigeration Engine Operator Name Role Phone Huseyin Dangelo MD Unavailable [phone] Brian Mon MD Primary Care Provider + Ernie Shaw MD Unavailable [phone] Reason for Visit * Reason Onset Date Comments Abdominal Pain 09/06/2020 Encounter Details Date Type Department Care Team (Late st Contact Info) Description 09/06/2020 Telephone [facility] Maternal- Medicine [address] [place] [address] Health 7th Floor [address] [place] [address] Leti Ricks Abdominal Pain Social History Tobacco Use Types Packs/Day Years Used Date Smoking Tobacco: Former Cigarettes Q uit: 12/28/2018 Smokeless Tobacco: Never Alcohol Use Standard Drinks/Week Comments Yes 0 (1 standard drink = 0.6 oz pur e alcohol) occasionally PHQ-2 Answer Date Recorded PHQ-2 Total Score [...] Telephone Encounter - Fariba Chin RN - 09/06/2020 11:53 AM CDT Pt wrote back via my chart and is going to go to the [facility] for evaluation. * Telephone Encounter - Leti Ricks - 09/06/2020 9:41 AM CDT Pt calling with two concerns: 1. Pt is c/o right lower quadrant pain that shoots into her vagina. She tells me that she feels it is a UTI. She was seen at [facility] on Sunday and treated for dehydration and N/V. Pt says her urine was brown. She also tells me that she had a foul vaginal odor for which they gave her Flagyl but she has discontinued taking that because they told her it is not BV but a yeast infection. She is t aking apple cider vinegar baths for that. She tells me today that it is painful to urinate and she has extreme frequency and urgency. Denies any vaginal discharge, leaking of fluid, vaginal odor at this time. Advised pt that I recommended she come to the [facility] for evaluation. Pt declines stating she has to work. Asked if she could come in for an office visit tomorrow as today just will not work for her Advised pt will check with provider for guidance. 2. Pt is concerned that her next growth ultrasound is not for 6 weeks. She feels she needs to be seen sooner for a growth. Advised pt that Dr Sorto recommended a growth at 24 weeks on her 08/26/20 appt and she is indeed scheduled for that at this time on 10/07/20. Pt would like to see if that appt can be moved up. Advised pt will check with provider for guidance on this as well. documented in this encounter Plan of Treatment Not on file documented as of this encounter Visit Diagnoses Not on filedocumented in this encounter Care Teams Refrigeration Engine Operator Relationship Specialty [place] [address] [place] [address] PCP - General 07/04/19 [place] [address] [address] [place] [address] 11/16/18 Ernie Shaw MD [address] [place] [address] [address] [place] [address] [employer] Crewmember Obstetrics and Gynecology 06/10/20 documented as of this encounter
--- OUTSIDE RECORDS SUMMARY | 2024-02-24 20:07 | XMS_ITS | Encounter Summary ---
Author Organization [facility] Healthcare Address [address] [place] [address] Care Team Providers Care Warp Drawer Name Role Phone Huseyin Dangelo MD Unavailable [phone] Brian Mon MD Primary Care Provider + Ernie Shaw MD Unavailable [phone] Encounter Details Date Type Department Care Team (Late st Contact Info) Description 09/01/2020 Telephone [facility] 1 [place] [id number] Kristin Saavedra MD [address] [facility] [phone] [place] [address] Social History Tobacco Use Types Packs/Day Years [...] Miscellaneous Notes * Telephone Encounter - Kristin Saavedra MD - 09/01/2020 4:16 PM CDT Returned patient's call. She was reading about placenta previa and is concerned that she has PAS. We discussed that without a prior CS, the risk is about 3% with a complete previa but that I reviewedher images and they were reviewed prior by Dr. Murray and we don't see any findings concerning for PAS. We discussed plan for f/u US to assess the placenta previa resolving. She desires 24w TVUS as well with her growth at that time. We also discussed the safety of lactulose in . She feels like it is helping her constipation but doesn't want to take too much. I ensured her that this medication is safe. Kamila Saavedra MD documented in this encounter Plan of Treatment Not on file documented as of this encounter Visit Diagnoses Not on filedocumented in this encounter Care Teams Warp Drawer Relationship Specialty [place] [address] [address] [place] [address] PCP - General 07/04/19 [place] [address] [address] [place] [address] 11/16/18 Ernie Shaw MD [address] [place] [address] [address] [place] [address] Train Crew Member Obstetrics and Gynecology 06/10/20 documented as of this encounter
--- OUTSIDE RECORDS SUMMARY | 2024-02-24 20:07 | XMS_ITS | Encounter Summary ---
Author Organization [facility] Address [address] [place] [address] Phone Care Team Providers Care Extract Wringer Name Role Phone Huseyin Dangelo MD Unavailable [phone] Brian Mon MD Primary Care Provider + Ernie Shaw MD Unavailable [phone] Reason for Visit * Reason Onset Date Comments Appointment 08/23/2020 Encounter Details Date Type Department Care Team (Late st Contact Info) Description 08/23/2020 Telephone [facility] [address] [facility] Medical Office Building 2 [address] [place] [address] Nallely Griffiths [facility] Appointment Social History Tobacco Use Types Packs/Day [...] Telephone Encounter - Nallely Griffiths CMA - 08/23/2020 9:04 AM CDT Pt called to request a TM type for her visit today. She is aware this visit would need to be in office due to prior medication questions and reported symptoms. Pt stated she's not able to drive up here to the office for today's visit. Information was discussed with provider and apt changed to TM. Pt is aware her next visits will needed to be in person. Pt verbally understood. documented in this encounter Plan of Treatment Not on file documented as of this encounter Visit Diagnoses Not on filedocumented in this encounter Care Teams Extract Wringer Relationship Specialty [place] [address] [address] [place] [address] PCP - General 07/04/19 [place] [address] [address] [facility] [place] [address] 11/16/18 Ernie Shaw MD [address] [facility] [address] [facility] [place] [address] Spa Therapist Obstetrics and Gynecology 06/10/20 documented as of this encounter
--- OUTSIDE RECORDS SUMMARY | 2024-02-24 20:07 | XMS_ITS | Encounter Summary ---
Author Organization [facility] Healthcare Address [address] [place] [address] Care Team Providers Care Leaf Sucker Operator Name Role Phone Huseyin Dangelo MD Unavailable [phone] Brian Mon MD Primary Care Provider + Ernie Shaw MD Unavailable [phone] Reason for Visit * Reason Onset Date Comments Review Medications 08/24/2020 Encounter Details Date Type Department Care Team (Late st Contact Info) Description 08/24/[address] [address] Leti Russ, dry cell assembly machine tender Medications Social History Tobacco Use Types Packs/Day Years [...] as of this encounter Progress Notes * Leti Russ RN - 08/24/2020 8:58 PM CDT Direct call from pt. Her name and were verified. She is calling this evening because she went to [facility] ER today for constipation and they gave her 4 medications to take daily. She is calling to see if they are ok to take. 1. Miralax 2. Colace 3. Lactulose 4. Bisacodyl suppository. She states she has taken all of theses except Lactulose. She wants to know if it is safe to take. I toldher that Lactulose is something that is by prescription and is not something that the after hours line would tell someone to take. I told her that since she was seen in the ER and was prescribed thatmedication I would follow the directions of the doctor who saw her. She states that she has had a long hx of constipation even before she was . She has an appointment on 08/26/20 and I suggested she discuss this with her doctor and together they will be able to come up with a good combinationof medications that will help her with the constipation. She agreed with this plan of care. documented in this encounter Plan of Treatment Not on file documented as of this encounter Visit Diagnoses Not on filedocumented in this encounter Care Teams Leaf Sucker Operator Relationship Specialty [place] [address] [address] [place] [address] PCP - General 07/04/19 [place] [address] [address] [facility] [place] [address] 11/16/18 Ernie Shaw MD [address] [place] [address] [address] [facility] [place] [address] Net Trainer Obstetrics and Gynecology 06/10/20 documented as of this encounter
--- OUTSIDE RECORDS SUMMARY | 2024-02-24 20:07 | XMS_ITS | Encounter Summary ---
Author Organization [facility] [employer] [facility] Address [address] [place] [address] Phone Care Team Providers Care Log Hauler Name Role Phone Huseyin Dangelo MD Unavailable Brian Mon MD Primary Care Provider + Ernie Shaw MD Unavailable [phone] Reason for Visit * Reason Onset Date Comments allergic reaction to Macrobid 09/16/2020 Encounter Details Date Type Department Care Team (Late st Contact Info) Description 09/16/2020 Telephone [facility] Maternal- Medicine [address] [facility] 7th Floor [address] [place] [address] Fariba Chin RN allergic reaction to Macrobid Social History Tobacco Use Types Packs/Day Years [...] encounter Miscellaneous Notes * Addendum Note - Fariba Chin RN - 09/16/2020 9:16 AM CDTAddended by: FARIBA CHIN on: 09/16/2020 09:16 AM Modules accepted: Orders * Telephone Encounter - Fariba Chin RN - 09/16/2020 9:03 AM CDT I called Carito to let her know that Dr. Saavedra reviewed her chart and would like her to performa urine culture as it is unclear if she has UTI from the test already done. Carito stated the ER told her they did one and they would call her with the results. I explained that I didn't see a urine culture in the system. I explained I would be happy to order a new one to a lab near her home. She verbalized understanding and asked if I could order it for [facility]. I said yes and the order was placed. Carito then called back stating she called the ER and they told her an urine culture was performed. I reviewed her chart again and discussed both her UA and UA with Micro results and let her know that the microscopic results didn't meet criteria for a Urine culture and it doesn't appear that one was sent. I explained that we would like her to have one performed so we can see a bigger picture ofwhat is going on. She agreed and stated she would go today. * Telephone Encounter - Fariba Chin RN - 09/16/2020 9:02 AM CDT Yes, I will call her and let her know and order the urine culture. Thank you, Fariba * Telephone Encounter - Kristin Saavedra MD - 09/16/2020 8:57 AM CDT I can see the results from yesterday and it's a little unclear whether she has a UTI on not. Can she leave a urine sample for culture at a local [facility] or something and then we can decide on antibx based on that? Thanks! * Telephone Encounter - Fariba Chin RN - 09/16/2020 8:37 AM CDT Carito called a few days ago with complaints of lower abdominal pain. She has a previa. I recommended she be evaluated in the [facility]. She called this morning and stated she did go to the ER closer to her home and they diagnosed her with a UTI. They prescribed her Macrobid 100 mg twice daily for 7 days. She has taken a total of two doses. She states that today she has a rash on her neck and blisters on the corners of her mouth. She stated she has taken benadryl. I recommended she stop taking Macrobid and I will send a message toone of the providers to see what they would like to switch her too. She stated since she has Lupus she can not take Bactrim. I told her I would let them know. documented in this encounter Plan of Treatment Not on file documented as of this encounter Visit Diagnoses Diagnosis Abdominal pain- Primary Abdominal pain, unspecified site Frequent urination Urinary frequency documented in this encounter Additional Health Concerns Infection Onset Date Last Indicated Resolved Time COVID: Suspected 09/13/2020 01/13/2021 09/22/2020 9:40 AM CDT documented as of this encounter Care Teams Log Hauler Relationship Specialty [place] [address] [address] [place] [address] PCP - General 07/04/19 [place] [address] [address] [place] [address] 11/16/18 Ernie Shaw MD [address] [facility] [address] [address] Shopper Marketing Manager Obstetrics and Gynecology 06/10/20 documented as of this encounter
--- OUTSIDE RECORDS SUMMARY | 2024-02-24 20:07 | XMS_ITS | Encounter Summary ---
Author Organization [facility] Address [address] [place] [address] Phone Care Team Providers Care Transverse Abdominal Muscle Nurse Name Role Phone Huseyin Dangelo MD Unavailable [phone] Brian Mon MD Primary Care Provider + Ernie Shaw MD Unavailable [phone] Encounter Details Date Type Department Care Team (Late st Contact Info) Description 08/12/2020 Telephone [facility] Department of Psychiatry [address] [facility] [address] [place] [address] Rianna Cruz MD [address] [facility] [address] [place] [address] Social History Tobacco Use Types Packs/Day Years [...] encounter Miscellaneous Notes * Telephone Encounter - Rianna Cruz MD - 08/12/2020 11:53 AM CDT Spoke to Jack [place] [phone]. He expressed concerns that he was working two jobs to support both of them. He reported that she isless physically active herself due to pain, and he wondered if having less structure in her day wasworsening her psychiatric symptoms. He was quite irritable on the phone. It sounds like the two of them don't have a huge amount of support for when the baby comes, maybe his mother but that was it. I let him know that moms are at lower risk of depression and anxiety if they have more help with the baby. Babies do better if their parents are doing well psychiatrically. documented in this encounter Plan of Treatment Not on file documented as of this encounter Visit Diagnoses Not on filedocumented in this encounter Care Teams Transverse Abdominal Muscle Nurse Relationship Specialty [place] [address] [address] [facility] [place] [address] PCP - General 07/04/19 [place] [address] [address] [place] [address] 11/16/18 Ernie Shaw MD [address] [place] [address] [address] [place] [address] Billiard Table Mechanic Obstetrics and Gynecology 06/10/20 documented as of this encounter
--- OUTSIDE RECORDS SUMMARY | 2024-02-24 20:07 | XMS_ITS | Encounter Summary ---
Author Organization [facility] Healthcare Address [address] [place] [address] Care Team Providers Care Irrigator Name Role Phone Huseyin Dangelo MD Unavailable [phone] Brian Mon MD Primary Care Provider + Ernie Shaw MD Unavailable [phone] Encounter Details Date Type Department Care Team (Late st Contact Info) Description 08/22/2020 Telephone [facility] 1 [place] [phone] Kristin Saavedra MD [address] [facility] [phone] [place] [address] Social History Tobacco Use Types Packs/Day Years [...] Telephone Encounter - Kristin Saavedra MD - 08/22/2020 9:17 AM CDT MFM Telephone Note Received call from answering service and returned patient's call. She is a 30 y.o. at [id number] is complicated by lupus and significant anxiety. She called comm center with lightheadedness and thirst. She is worried she has diabetes because sheis on prednisone for lupus. She has a glucometer and took her fasting this AM and it was 85. An A1con 08/17 was 4.7%. Hgb was >11 then as well. We discussed hydration with the summer and . I offered assessment in [facility] which she declines. She is agreement with plan. She also self-weaned her prednisone to 5mg. I counseled her to not wean further as lupus flare in has significant risks. She voices understanding. Teach-back was provided and all questions answered. The patient is in agreement with the plan as stated above. Kristin Saavedra MD Maternal Medicine Fellow 08/22/20 documented in this encounter Plan of Treatment Not on file documented as of this encounter Visit Diagnoses Not on filedocumented in this encounter Care Teams Irrigator Relationship Specialty [place] [address] [address] [place] [address] PCP - General 07/04/19 [place] [address] [address] [facility] [place] [address] 11/16/18 Ernie Shaw MD [address] [place] [address] [address] [facility] [place] [address] Marine Plumber Obstetrics and Gynecology 06/10/20 documented as of this encounter
--- OUTSIDE RECORDS SUMMARY | 2024-02-24 20:07 | XMS_ITS | Encounter Summary ---
Author Organization [facility] Healthcare Address [address] [place] [address] Care Team Providers Care Automated Logistics Specialist Name Role Phone Huseyin Dangelo MD Unavailable Brian Mon MD Primary Care Provider + Ernie Shaw MD Unavailable [phone] Reason for Visit * Reason Onset Date Comments Constipation 08/25/2020 medication verif ication Encounter Details Date Type Department Care Team (Late st Contact Info) Description 08/25/2020 Nurse Triage [facility] Clinic [address] [facility] 3rd Floor [address] [place] [address] [place] [address] [place] [address] [address] ST[address] [phone] [place] [address] Social History Tobacco Use [...] encounter Miscellaneous Notes * Telephone Encounter - Ritika Thayer RN - 08/25/2020 6:13 PM CDT Reason for Disposition ??? Taking new prescription medication ??? Treating constipation with Yahb-Pxm-Ddwarbs (OTC) medicines, questions about Protocols used: [id number] Patient prescribed medications at outside hospital yesterday. Lactulose, Colace, Miralaxx and Bisacodyl suppository. Discussed medications with , advised patient to continue taking medications and will review again at appointment tomorrow. documented in this encounter Plan of Treatment Not on file documented as of this encounter Visit Diagnoses Not on filedocumented in this encounter Care Teams Automated Logistics Specialist Relationship Specialty [place] [address] [address] [facility] [place] [address] PCP - General 07/04/19 [place] [address] [address] [place] [address] 11/16/18 Ernie Shaw MD [address] [facility] [address] [place] [address] Sand Mixer Operator Obstetrics and Gynecology 06/10/20 documented as of this encounter
--- OUTSIDE RECORDS SUMMARY | 2024-02-24 20:07 | XMS_ITS | Encounter Summary ---
Author Organization [facility] Healthcare Address [address] [place] [address] Care Team Providers Care Rn Iv Therapy Name Role Phone Huseyin Dangelo MD Unavailable [phone] Brian Mon MD Primary Care Provider + Ernie Shaw MD Unavailable [phone] Reason for Visit * Reason Onset Date Comments Outgoing Call 08/22/2020 Encounter Details Date Type Department Care Team (Late st Contact Info) Description 08/22/2020 Nurse Triage [address] [address] Saúl Lo, PRO Social History Tobacco Use [...] Telephone Encounter - Saúl Lo RN - 08/22/2020 9:04 AM CDT Pt called stating that she is 17+wks. States that she has been feeling lightheaded and her vision has been blurry for a couple of days. Scheduled to go to work today but doesn't know if she should go. Pt says that she is anxious and nervous. Requesting to speak with the OB doctor on-call. Informed that this RN will contact the doctor and inform them that she would like a call back. Pt verbalizes understanding and states ok. Dr. Saavedra phoned. Informed of pt's complaints as stated above and pt's request to speak with her. Says that she will give the pt a call. Reason for Disposition ??? Nursing judgment or information in reference Protocols used: NO GUIDELINE [id number] documented in this encounter Plan of Treatment Not on file documented as of this encounter Visit Diagnoses Not on filedocumented in this encounter Care Teams Rn Iv Therapy Relationship Specialty [place] [address] [address] [place] [address] PCP - General 07/04/19 [place] [address] [address] [place] [address] 11/16/18 Ernie Shaw MD [address] [place] [address] [address] [place] [address] Ground Defence Officer Obstetrics and Gynecology 06/10/20 documented as of this encounter
--- OUTSIDE RECORDS SUMMARY | 2024-02-24 20:07 | XMS_ITS | Encounter Summary ---
Author Organization [facility] Address [address] [facility] [address] [place] [address] Care Team Providers Care Loading Unit Operator Seating Name Role Phone Huseyin Dangelo MD Unavailable [phone] Brian Mon MD Primary Care Provider + Ernie Shaw MD Unavailable [phone] Reason for Visit * Reason Onset Date Comments Test Results 08/20/2020 Encounter Details Date Type Department Care Team (Late st Contact Info) Description 08/20/2020 Telephone [facility] Care at [address] [place] [address] Jennifer Leon MA Test Results Social History Tobacco Use Types Packs/Day [...] encounter Miscellaneous Notes * Telephone Encounter - Roro Gallardo MA - 08/23/2020 11:08 AM CDT Left message for patient to call back to discuss negative covid results. Patient can also view her results on [employer]. * Telephone Encounter - Jennifer Leon MA - 08/20/2020 8:38 AM CDT Left message for patient to call back to discuss negative COVID results. * Telephone Encounter - Jennifer Leon MA - 08/20/2020 8:38 AM CDT ----- Message from Janet Barton NP sent at 08/20/2020 8:18 AM CDT ----- Please notify patient of negative Strep culture. There is no need for antibiotics at this time as this is likely a vial upper respiratory infection. Encourages salt water gargles and good oral hygiene. Please make patient aware that management is continued symptomatic relief. Follow up with PCP if symptoms persist. documented in this encounter Plan of Treatment Not on file documented as of this encounter Visit Diagnoses Not on filedocumented in this encounter Care Teams Loading Unit Operator Seating Relationship Specialty [place] [address] [address] [place] [address] PCP - General 07/04/19 [place] [address] [address] [place] [address] 11/16/18 Ernie Shaw MD [address] [place] [address] [address] [facility] [place] [address] Bookstore Manager Obstetrics and Gynecology 06/10/20 documented as of this encounter
--- OUTSIDE RECORDS SUMMARY | 2024-02-24 20:07 | XMS_ITS | Encounter Summary ---
Author Organization [facility] Healthcare Address [address] [place] [address] Care Team Providers Care Greige Goods Examiner Name Role Phone Huseyin Dangelo MD Unavailable [phone] Brian Mon MD Primary Care Provider + Ernie Shaw MD Unavailable [phone] Reason for Visit * Reason Onset Date Comments Incoming Call 09/21/2020 Encounter Details Date Type Department Care Team (Late st Contact Info) Description 09/21/[address] [phone] Mariza Mccoy RN Incoming Call Social History Tobacco Use Types Packs/Day Years [...] Progress Notes * Mariza Mccoy RN - 09/21/2020 7:58 PM CDT Patient left a message on the [facility] communication voicemail identifying herself and asking for a return phone call but no problem stated. Attempted to contact patient twice for follow-up triage phone call. Patient did not answer, no message left for return phone call. documented in this encounter Plan of Treatment Not on file documented as of this encounter Visit Diagnoses Not on filedocumented in this encounter Additional Health Concerns Infection Onset Date Last Indicated Resolved Time COVID: Suspected 09/13/2020 01/13/2021 09/22/2020 9:40 AM CDT documented as of this encounter Care Teams Greige Goods Examiner Relationship Specialty [place] [address] [address] [facility] [place] [address] PCP - General 07/04/19 [place] [address] [address] [facility] [place] [address] 11/16/18 Ernie Shaw MD [address] [facility] [address] [place] [address] Supply Assistant Obstetrics and Gynecology 06/10/20 documented as of this encounter
--- OUTSIDE RECORDS SUMMARY | 2024-02-24 20:07 | XMS_ITS | Encounter Summary ---
Author Organization [facility] Address [address] [place] [address] Phone Care Team Providers Care Blueprinting And Photocopy Supervisor Name Role Phone Huseyin Dangelo MD Unavailable [phone] Brian Mon MD Primary Care Provider + Ernie Shaw MD Unavailable [phone] Encounter Details Date Type Department Care Team (Late st Contact Info) Description 08/18/2020 Telephone [facility] Department of Psychiatry [address] [facility] [address] [place] [address] Rianna Cruz MD [address] [facility] [address] [place] [address] Social History Tobacco Use Types Packs/Day Years [...] Telephone Encounter - Rianna Cruz MD - 08/18/2020 11:38 AM CDT Patient and her were upset about how the recent phone conversation went with her . It sounds like he found it very confusing. The patient spoke with her PCP and MFM about this because she was very frustrated with me. I spoke with Courtney June in [facility] about what happened. I was not intending to upset her or her and I'm very sorry if it came across wrong. I have sent her a [employer] message apologizing aswell. I am happy to keep working with her if she wants, or she is welcome to transfer to a new doctor if she prefers. documented in this encounter Plan of Treatment Not on file documented as of this encounter Visit Diagnoses Not on filedocumented in this encounter Care Teams Blueprinting And Photocopy Supervisor Relationship Specialty [place] [address] [address] [place] [address] PCP - General 07/04/19 [place] [address] [address] [place] [address] 11/16/18 Ernie Shaw MD [address] [place] [address] [address] [place] [address] Energy Conservation Representative Obstetrics and Gynecology 06/10/20 documented as of this encounter
--- OUTSIDE RECORDS SUMMARY | 2024-02-24 20:07 | XMS_ITS | Encounter Summary ---
Author Organization [facility] [employer] [facility] Address [address] [place] [address] Phone Care Team Providers Care Access Services Assistant Name Role Phone Huseyin Dangelo MD Unavailable [phone] Brian Mon MD Primary Care Provider + Ernie Shaw MD Unavailable [phone] Reason for Visit * Reason Onset Date Comments anatomy ultrasound 08/11/2020 Encounter Details Date Type Department Care Team (Late st Contact Info) Description 08/11/2020 Telephone [facility] Maternal- Medicine [address] [place] [address] Health 7th Floor [address] [place] [address] Leti Ricks anatomy ultrasound Social History Tobacco Use Types Packs/Day Years [...] * Telephone Encounter - Leti Ricks - 08/11/2020 3:35 PM CDT Pt advised ok to have anatomy scan with primary OB. She would like to come for a COM visit the nextweek and I will have the scheduling hub contact her to arrange. I reached out to Monica with financial services and the self pay cost for the appointment only is $120. Pt was fine with that cost. * Telephone Encounter - Aimee Paris MD - 08/11/2020 3:16 PM CDT Yes she can have your anatomy scan with her primary OB. * Telephone Encounter - Aimee Paris MD - 08/11/2020 3:16 PM CDT Yes she can have your anatomy scan with her primary OB. Aimee Paris MD Maternal Medicine Fellow Pager # * Telephone Encounter - Leti Ricks - 08/11/2020 9:47 AM CDT Pt called to see if she can have her anatomy ultrasound done at her primary OB office and not here on 08/26/20. Pt lost her insurance and the scan will cost her $634 here but is included in her global with primary OB. Will check with provider about her having the anatomy scan done with primary OB. documented in this encounter Plan of Treatment Not on file documented as of this encounter Visit Diagnoses Not on filedocumented in this encounter Care Teams Access Services Assistant Relationship Specialty [place] [address] [place] [address] PCP - General 07/04/19 [place] [address] [address] [place] [address] 11/16/18 Ernie Shaw MD [address] [facility] [address] [place] [address] Obstetrics and Gynecology 06/10/20 documented as of this encounter
--- OUTSIDE RECORDS SUMMARY | 2024-02-24 20:07 | XMS_ITS | Encounter Summary ---
Author Organization [facility] [employer] [facility] Address [address] [place] [address] Phone Care Team Providers Care Fire Control Technician Name Role Phone Huseyin Dangelo MD Unavailable [phone] Brian Mon MD Primary Care Provider + Ernie Shaw MD Unavailable [phone] Encounter Details Date Type Department Care Team (Late st Contact Info) Description 08/12/2020 Telephone [facility] [place] [address] Becky Anthony BS Social History Tobacco Use Types Packs/Day Years [...] encounter Miscellaneous Notes * Telephone Encounter - Becky Anthony - 08/12/2020 11:19 AM CDT ----- Message from Gary Hollingsworth MD sent at 08/12/2020 8:26 AM CDT ----- Regarding: Reschedule Please reschedule Carito Madison for a visit with Dr. Cruz within the next week or at patient's earliest convenience. Thank you Gary documented in this encounter Plan of Treatment Not on file documented as of this encounter Visit Diagnoses Not on filedocumented in this encounter Care Teams Fire Control Technician Relationship Specialty [place] [address] [address] [facility] [address] [place] [address] PCP - General 07/04/19 [place] [address] [address] [facility] [address] [place] [address] 11/16/18 Ernie Shaw MD [address] [place] [address] [address] [place] [address] Building Operator Obstetrics and Gynecology 06/10/20 documented as of this encounter
--- OUTSIDE RECORDS SUMMARY | 2024-02-24 20:07 | XMS_ITS | Encounter Summary ---
Author Organization [facility] [employer] [facility] Address [address] [place] [address] Phone Care Team Providers Care Head Rose Grower Name Role Phone Huseyin Dangelo MD Unavailable [phone] Brian Mon MD Primary Care Provider + Ernie Shaw MD Unavailable Encounter Details Date Type Department Care Team (Late st Contact Info) Description 08/12/2020 Telephone [facility] Psychiatry [facility] [place] [address] Remedios Nj Social History Tobacco Use Types Packs/Day Years [...] Miscellaneous Notes * Telephone Encounter - Remedios Nj - 08/12/2020 9:39 AM CDT ----- Message from Remeidos Nj sent at 08/12/2020 9:38 AM CDT ----- I left a voice message and sent a MyChart message to schedule. Thank you, Remedios ----- Message ----- From: Rianna Cruz MD Sent: 08/12/2020 8:26 AM CDT To: [facility], [facility] Please call to reschedule, I could squeeze her in tomorrow 08/13 9:00-9:30am or 10:30-11:30am if notalready booked. I could also get her in next week. Please let me know if you reach her. documented in this encounter Plan of Treatment Not on file documented as of this encounter Visit Diagnoses Not on filedocumented in this encounter Care Teams Head Rose Grower Relationship Specialty [place] [address] [place] [address] PCP - General 07/04/19 [place] [address] [address] [place] [address] 11/16/18 Ernie Shaw MD [address] [place] [address] [address] [facility] [place] [address] Hand Decorator Obstetrics and Gynecology 06/10/20 documented as of this encounter
--- OUTSIDE RECORDS SUMMARY | 2024-02-24 20:07 | XMS_ITS | Encounter Summary ---
Author Organization [facility] Address [address] [place] [address] Care Team Providers Care Aircraft Structure Mechanic Name Role Phone Huseyin Dangelo MD Unavailable [phone] Brian Mon MD Primary Care Provider + Ernie Shaw MD Unavailable [phone] Encounter Details Date Type Department Care Team (Late st Contact Info) Description 08/26/2020 10:45 AM CDT Lab [facility] Outpatient Health [address] [place] [address] Outpatient Health [place], [place] [id number] Carolina Delarosa MD [address] [place] [address] [place] [phone] Other systemic lupus erythematosus with other organ involvement (CMS/HCC) Discharge Disposition: Discharge to home or self [...] Encounter Note - Carolina Delarosa MD - 08/26/2020 1:40 PM CDT Please let her know her inflamamtory marker a slightly sabrina but that can happen even with So far lupus marker including er kidneys look fine ' Please increase HCQS and later start AZA as discussed documented in this encounter Plan of Treatment Not on file documented as of this encounter Procedures Procedure Name Priority Date/Time Associated Diagnosis Comments ANTI-DOUBLE STRANDED DNA ANTIBODIES Routine 08/26/2020 10:46 AM CDT Other systemic lupus erythematosus with other organ involvement (CMS/HCC) DIFFERENTIAL AUTO Routine 08/26/2020 10: 46 AM CDT Other systemic lupus erythematosus with other organ involvement (CMS/HCC) C4 COMPLEMENT Routine 08/26/2020 10:46 AM CDT Other systemic lupus erythematosus with other organ involvement (CMS/HCC) URINALYSIS AND REFLEX TO MICROSCOPIC AND CULTURE Routine 08/26/2020 10:46 AM CDT Other systemic lupus erythematosus with other organ involvement (CMS/HCC) CBC WITH AUTO DIFFERENTIAL Routine 08/26/2020 10:46 AM CDT Other systemic lupus erythematosus with other organ involvement (CMS/HCC) PROTEIN / CREATININE RATIO, URINE, RANDOM Routine 08/26/2020 10:46 AM CDT Other systemic lupus erythematosus with other organ involvement (CMS/HCC) ERYTHROCYTE SEDIMENTATION RATE Routine 08/26/2020 10:46 AM CDT Other systemic lupus erythematosus with other organ involvement (CMS/HCC) C3 COMPLEMENT Routine 08/26/2020 10:46 AM CDT Other systemic lupus erythematosus with other organ involvement (CMS/HCC) CRP (ACUTE PHASE) Routine 08/26/2020 10: 46 AM CDT Other systemic lupus erythematosus with other organ involvement (CMS/HCC) COMPREHENSIVE METABOLIC PANEL Routine 08/26/2020 10:46 AM CDT Other systemic lupus erythematosus with other organ involvement (CMS/HCC) documented in this encounter Results * (ABNORMAL) Differential, auto (08/26/2020 10:46 AM CDT) Neutrophil abs 8.0(H) 1.7 - 6.5 K/cumm [facility] Imm gran abs 0.1 0.0 - 0.1 K/cumm [facility] Lymphocyte abs 0.7(L) 0.8 - 3.3 K/cumm [facility] Monocyte abs 0.6 0.2 - 0.8 K/cumm [facility] Eosinophil abs 0.1 0.0 - 0.5 K/cumm [facility] Basophil abs 0.0 0.0 - 0.1 K/cumm [facility] Neutrophil pct 84.5 % [facility] Comment: Interpretive Data Percent cell count reference ranges are not reported, since discordance with absolute values may lead to misinterpretation of CBC data. Current Interpretive Data was last revised on 2017. Imm gran pct 0.5 % [facility] Comment: Interpretive Data Percent cell count reference ranges are not reported, since discordance with absolute values may lead to misinterpretation of CBC data. Current Interpretive Data was last revised on 2017. Lymphocyte pct 7.9 % [facility] Comment: Interpretive Data Percent cell count reference ranges are not reported, since discordance with absolute values may lead to misinterpretation of CBC data. Current Interpretive Data was last revised on 2017. Monocyte pct 6.0 % [facility] Comment: Interpretive Data Percent cell count reference ranges are not reported, since discordance with absolute values may lead to misinterpretation of CBC data. Current Interpretive Data was last revised on 2017. Eosinophil pct 0.9 % [facility] Comment: Interpretive Data Percent cell count reference ranges are not reported, since discordance with absolute values may lead to misinterpretation of CBC data. Current Interpretive Data was last revised on 2017. Basophil pct 0.2 % [facility] Comment: Interpretive Data Percent cell count reference ranges are not reported, since discordance with absolute values may lead to misinterpretation of CBC data. Current Interpretive Data was last revised on 2017. Blood specimen (specimen) 08/26/2020 10:46 AM CDT 08/26/2020 11:30 AM CDT us Carolina eDlarosa MD LAB BLOOD ORDERABLES Final Result Performing Organization Address City/[facility]/ZIP Co de Phone Number [facility] Department [place] [address] * (ABNORMAL) CBC with auto differential (08/26/2020 10:46 AM CDT) WBC 9.4 3.8 - 9.9 K/cumm [facility] Hgb 10.9(L) 11.9 - 15.5 g/dL [facility] Hct 32.5(L) 35.6 - 45.5 % [facility] Plt 264 150 - 400 K/cumm [facility] MPV 9.9 9.1 - 12.3 fL [facility] RBC 3.65(L) 3.90 - 5.20 M/cumm [facility] MCV 89.0 81.3 - 96.4 fL [facility] MCH 29.9 27.1 - 33.3 pg [facility] MCHC 33.5 32.3 - 35.7 g/dL [facility] RDW CV 13.3 11.1 - 14.9 % [facility] RDW SD 43.6 35.7 - 48.1 fL [facility] NRBC abs 0.00 0.00 - 0.01 K/cumm [facility] Blood specimen (specimen) 08/26/2020 10:46 AM CDT 08/26/2020 11:30 AM CDT us Carolina Delarosa MD LAB BLOOD ORDERABLES Final Result [facility] Department [place] [address] * (ABNORMAL) Comprehensive metabolic panel (08/26/2020 10:46 AM CDT) Sodium 138 135 - 145 mmol/L [facility] Potassium, pl 4.0 3.3 - 4.9 mmol/L [facility] Chloride 104 97 - 110 mmol/L [facility] CO2 24 22 - 32 mmol/L [facility] Anion gap 10 2 - 15 mmol/L [facility] BUN 6(L) 8 - 25 mg/dL [facility] Creatinine 0.55(L) 0.60 - 1.10 mg/dL [facility] Glucose 78 70 - 199 mg/dL [facility] Comment: Interpretive Data Fasting glucose >/= 126 [...] 2017. Calcium 9.5 8.5 - 10.3 mg/dL [facility] Bilirubin, total 0.2 0.1 - 1.2 mg/dL [facility] Protein, pl 6.9 6.5 - 8.5 g/dL [facility] Albumin 3.8 3.5 - 5.0 g/dL [facility] Alk phos 53 40 - 130 Units/L [facility] ALT 20 7 - 45 Units/L [facility] AST 20 10 - 45 Units/L [facility] Blood specimen (specimen) 08/26/2020 10:46 AM CDT 08/26/2020 11:30 AM CDT Carolina Delarosa MD LAB BLOOD ORDERABLES Final Result [facility] [place] [address] * C3 complement (08/26/2020 10:46 AM CDT) Pathologist [facility] Complement C3 143.0 90.0 - 180.0 mg/dL [facility] Blood specimen (specimen) 08/26/2020 10:46 AM CDT 08/26/2020 11:30 AM CDT Carolina Delarosa MD LAB BLOOD ORDERABLES Final Result Performing Organization Address City/[facility]/[place] [address] * (ABNORMAL) CRP (acute phase) (08/26/2020 10:46 AM CDT) [facility] CRP 26.5(H) <=10.0 mg/L [facility] Blood specimen (specimen) 08/26/2020 10:46 AM CDT 08/26/2020 11:30 AM CDT Carolina Delarosa MD LAB BLOOD ORDERABLES Final Result Performing Organization Address City/[facility] Co de Phone Number [facility] [place] [address] * Anti-double stranded DNA antibodies (08/26/2020 10:46 AM CDT) Pathologist [facility] dsDNA Ab 4.0 <=4.0 IUnits/mL [facility] Comment: Interpretive Data Negative: < or = 4 IUnits/mL Indeterminate: 5 - 9 IUnits/mL Positive: > or = 10 IUnits/mL Current interpretive data was last revised on 2016. Blood specimen (specimen) 08/26/2020 10:46 AM CDT 08/26/2020 11:30 AM CDT Carolina Delarosa MD LAB BLOOD ORDERABLES Final Result Performing Organization Address City/[facility]/ZIP Co de Phone Number [facility] Department [place] [address] * (ABNORMAL) Erythrocyte sedimentation rate (08/26/2020 10:46 AM CDT) Erythrocyte sedimentation rate 33(H) 1 - 20 mm/hr [facility] Blood specimen (specimen) 08/26/2020 10:46 AM CDT 08/26/2020 11:30 AM CDT Carolina Delarosa MD LAB BLOOD ORDERABLES Final Result Performing Organization Address [facility] de Phone Number [facility] Department [place] [address] * (ABNORMAL) Urinalysis reflex to microscopic and culture Urine (08/26/2020 10:46 AM CDT) Color, ur Yellow Yellow [facility] Clarity, ur Cloudy(A) Clear [facility] Specific gravity, ur 1.019 1.010 - 1.025 [facility] pH, urine 7 [facility] Protein, ur ql Negative Negative [facility] Glucose, ur ql Negative Negative [facility] Ketones, ur Negative Negative [facility] Bilirubin, ur Negative Negative [facility] Blood, ur Negative Negative [facility] Urobilinogen, ur <2.0 <2.0 mg/dL [facility] Nitrite, ur Negative Negative [facility] Leukocyte esterase, ur Negative Negative [facility] UA reflex comment Reflex conditions for microscopic UA and culture not met. [facility] Urine 08/26/2020 10:4 6 AM CDT 08/26/2020 11:30 AM CDT Narrative [facility] - 08/26/2020 11:39 AM CDT ?? Urine pH is affected by diet, medications, systemic acid-base disturbances, and renal tubular function. ??pH may affect urinary stone formation. ??For example, urine pH below 6.0 may help reduce the tendency for calcium phosphate stones and pH greater than 6.0 may reduce the tendency for uric acid stone formation. Source: [facility] [employer] Last revised 03-08-2017 Result [facility] Carolina Delarosa MD LAB MICROBIOLOGY - GENERAL ORDERABLES Final Result Performing Organization Address [facility] [place] [address] * C4 complement (08/26/2020 10:46 AM CDT) Pathologist [facility] Complement C4 20.9 10.0 - 40.0 mg/dL [facility] Blood specimen (specimen) 08/26/2020 10:46 AM CDT 08/26/2020 11:30 AM CDT Result [facility] Carolina Delarosa MD LAB BLOOD ORDERABLES Final Result Performing Organization Address [facility] de Phone Number [facility] [employer] [place] [address] * Protein / creatinine ratio, urine, random (08/26/2020 10:46 AM CDT) Protein, ur, quant 10.4 mg/dL [facility] Comment: Interpretive Data No reference range established. Current interpretive data was last revised 2018. Creatinine Ur 127.5 mg/dL [facility] Comment: Interpretive Data No reference range established. Current interpretive data was last revised 2018. Protein/creatinin e ratio 81.6 0.0 - 180.0 mg/g CR [facility] Urine 08/26/2020 10:4 6 AM CDT 08/26/2020 11:30 AM CDT Result [facility] Carolina Delarosa MD LAB URINE ORDERABLES Final Result Performing Organization Address [facility] [place] [address] documented in this encounter Visit Diagnoses Diagnosis Other systemic lupus erythematosus with other organ involvement (HCC) documented in this encounter Care Teams Aircraft Structure Mechanic Relationship Specialty [place] [address] [address] [facility] [place] [address] PCP - General 07/04/19 [place] [address] [place] [address] 11/16/18 Ernie Shaw MD [address] [place] [address] [address] [place] [address] Marble Helper Obstetrics and Gynecology 06/10/20 documented as of this encounter
--- OUTSIDE RECORDS SUMMARY | 2024-02-24 20:07 | XMS_ITS | Encounter Summary ---
Author Organization [facility] Address [address] [place] [address] Phone Care Team Providers Care Signwriter Name Role Phone Huseyin Dangelo MD Unavailable [phone] Brian Mon MD Primary Care Provider + Ernie Shaw MD Unavailable [phone] Encounter Details Date Type Department Care Team (Late st Contact Info) Description 08/23/2020 3:40 PM CDT Telemedicine [facility] Rheumatology [address] [facility] Medical Office Building [address] [place] [address] Carolina Delarosa MD [address] [place] [address] Other systemic lupus erythematosus with other organ involvement (CMS/HCC) (Primary Dx) Social History Tobacco Use Types [...] as of this encounter Progress Notes * Carolina Delarosa MD - 08/23/2020 3:40 PM CDT PATIENT NAME: Carito Madison : 1990 08/23/2020 This was a telemedicine visit with Carito Madison alone which took place via Telephone During the visit, I was located in the office and the patient was located at home in the state [facility]. The patient visit started at 2.30 pm and ended at2.52 pm. My total encounter time on 08/23/2020 was 22 minutes which was spent in the activities documented in the note. This includes time spent prior to the visit and after the visit in direct care of the patient. This time does not include time spent in anyseparately reportable services. The patient: has been informed that the visit may not be secure and acknowledged the information. The option of participating in a telephone or video visit during the [facility] [place] [address] emergencywas explained to them. After being given [...] She also has a positive double-stranded DNA, HEADWAITER/HEADWAITRESS antibody and a low C4 and C3 [...] Interim She is doing well. She is 18 weeks . Her last Benlysta was April. She has established with [facility] Last visit I had advised her to increase her hydroxychloroquine to 200 alternating with 400 every other day and add azathioprine 50 mg to her regimen. However she has not implemented any of this in continues to be on hydroxychloroquine 200 mg daily She is doing well today. She is on hydroxychloroquine 200 MG. [facility] did finally get a eye exam.. She was seen by Endocrinology and diagnosed with adrenal insufficiency and they have been taping her prednisone she is currently down to 5 mg She is worried about the outcome of ALLERGIES: Allergies Allergen Reactions ??? Methylprednisolone Anaphylaxis and Syncope Syncope ??? Penicillins Hives and Rash ??? Amoxicillin Rash ??? Escitalopram Other (See comments) and Rash Caused seizures Caused seizures Caused seizures ??? Aripiprazole Other (See comments) ??? Venlafaxine Itching CURRENT MEDICATION: Current Outpatient Medications: ??? aspirin 81 mg enteric coated tablet, Take 81 mg by mouth daily, Disp: , Rfl: ??? azaTHIOprine (IMURAN) 50 mg tablet, Take 1 tablet (50 mg total) by mouth daily (Patient not taking: Reported on 06/22/2020), Disp: 30 tablet, Rfl: 1 ??? belimumab (Benlysta) auto-injector, Inject 1 mL (200 mg total) under the skin every 7 days (Patient not taking: Reported on 06/11/2020), Disp: 4 Syringe, Rfl: 3 ??? bromocriptine (PARLODEL) 2.5 mg tablet, Take 2.5 mg by mouth 2 (two) times a day, Disp: , Rfl: ??? ergocalciferol (VITAMIN D) 50,000 unit capsule, TAKE 1 CAPSULE BY MOUTH ONE TIME PER WEEK, Disp: , Rfl: ??? ferrous gluconate 324 mg (38 mg of elemental iron) tablet, TAKE 1 TABLET BY MOUTH THREE TIMES ADAY (Patient not taking: Reported on 06/22/2020), Disp: 90 tablet, Rfl: 2 ??? hydrocortisone (CORTEF) 5 mg tablet, Take 2 tabs (10 mg) in morning and 1 tab (5 mg) in afternoon (Patient not taking: Reported on 06/14/2020), Disp: 270 tablet, Rfl: 3 ??? hydrOXYchloroQUINE (PLAQUENIL) 200 mg tablet, Take 2 tablets (400 mg total) by mouth daily, Disp: 60 tablet, Rfl: 0 ??? ipratropium (ATROVENT) 0.03 % nasal spray, INSTILL 1 SPRAY IN EACH NOSTRIL TWICE DAILY, Disp: ,Rfl: ??? meclizine (ANTIVERT) 25 mg tablet, Take 1 tablet (25 mg total) by mouth 3 (three) times a day as needed for dizziness (Patient not taking: Reported on 05/14/2020), Disp: 30 tablet, Rfl: 0 ??? multivitamin capsule, Take 1 capsule by mouth daily (Patient not taking: Reported on 08/18/2020), Disp: , Rfl: ??? omeprazole (PriLOSEC) 20 mg capsule, Take 20 mg by mouth daily, Disp: , Rfl: ??? ondansetron (ZOFRAN) 4 mg tablet, Take 1 tablet (4 mg total) by mouth every 8 (eight) hours as needed for nausea or vomiting (Patient not taking: Reported on 07/08/2020), Disp: 20 tablet, Rfl: 0 ??? ondansetron ODT (ZOFRAN-ODT) 8 mg disintegrating tablet, Dissolve 1 tablet on top of tongue then swallow with saliva every 8 hours as needed for nausea or vomiting, Disp: , Rfl: ??? predniSONE (DELTASONE) 1 mg tablet, prednisone 1 mg tablet TAKE 1 TABLET BY MOUTH EVERY DAY (Patient not taking: Reported on 08/18/2020), Disp: , Rfl: ??? predniSONE (DELTASONE) 5 mg tablet, TAKE 2 TABLETS(10 MG) BY MOUTH DAILY, Disp: 60 tablet, Rfl:0 ??? progesterone (PROMETRIUM) 200 mg capsule, Take by mouth daily (Patient not taking: Reported on 08/18/2020), Disp: , Rfl: ??? sertraline (ZOLOFT) 50 mg tablet, Take 1.5 tablets (75 mg total) by mouth daily, Disp: 45 tablet, Rfl: 2 ??? triamcinolone (KENALOG) 0.1 % cream, Apply topically 2 (two) times a day (Patient not taking: Reported on 05/14/2020), Disp: 30 g, Rfl: 0 ??? valACYclovir (VALTREX) 500 mg tablet, TAKE 1 TAB BY MOUTH 3 TIMES DAILY FOR 7 DAYS., Disp: , Rfl: ??? Ventolin HFA 90 mcg/actuation inhaler, INHALE TWO PUFFS BY MOUTH EVERY FOUR HOURS NEEDED FORWHEEZING/COUGH, Disp: , Rfl: PHYSICAL EXAM: Vitals LMP (LMP Unknown) Physical Exam Not performed LABORATORY DATA: Lab Results Component Value Date WBC 10.4 (H) 08/02/2020 HGB 11.5 (L) 08/02/2020 HCT 33.7 (L) 08/02/2020 MCV 88.9 08/02/2020 LABPLAT 260 08/02/2020 Lab Results Component Value Date AST 13 08/02/2020 ALT 12 08/02/2020 CREATININE 0.35 (L) 08/02/2020 Lab Results Component Value Date SEDRATE 12 05/13/2020 Lab Results Component Value Date CRP 7.5 05/13/2020 ASSESSMENT AND PLAN: SLE In conclusion this is a 29-year-old female with a diagnosis of lupus. At this point she is at 18 weeks. We will get a full set of lupus serologies today. She iscurrently only on daily aspirin, prednisone 5 and hydroxychloroquine 200 mg daily. After discussionshe is willing to consider an increase in hydroxychloroquine to 200 mg alternating with 400 mg every other day. She tolerates this we had azathioprine 50 mg daily Hopefully with this we will be able to get her through safely She seems to be in clinical remission which is reassuring , I am not sure if it will stay that way off Benlysta I discussed with her that I would not recommend she cont Benlysta because we have no data on safetythrough . DISPOSITION: The patient will return follow up in 2 months Carolina Delarosa MD documented in this encounter Plan of Treatment Not on file documented as of this encounter Results * Protein / creatinine ratio, urine, random (08/26/2020 10:46 AM CDT) Pathologist [facility] Protein, ur, quant 10.4 mg/dL [facility] 6 AM CDT 08/26/2020 11:30 AM CDT Carolina Delarosa MD LAB URINE ORDERABLES Final Result Performing Organization Address City/[facility]/ZIP Co de Phone Number [facility] Department [place] [address] * C4 complement (08/26/2020 10:46 AM CDT) [facility] Complement C4 20.9 10.0 - 40.0 mg/dL [facility] Blood specimen (specimen) 08/26/2020 10:46 AM CDT 08/26/2020 11:30 AM CDT Carolina Delarosa MD LAB BLOOD ORDERABLES Final Result Performing Organization Address [facility] Co de Phone Number [facility] Department [place] [address] * (ABNORMAL) Urinalysis reflex to microscopic and culture Urine (08/26/2020 10:46 AM CDT) Pathologist [facility] Color, ur Yellow Yellow [facility] Clarity, ur Cloudy(A) Clear [facility] [...] AM CDT 08/26/2020 11:30 AM CDT Narrative [facility] - 08/26/2020 11:39 AM CDT ?? Urine pH is affected by diet, medications, systemic acid-base disturbances, and renal tubular function. ??pH may affect urinary stone formation. ??For example, urine pH below 6.0 may help reduce the tendency for calcium phosphate stones and pH greater than 6.0 may reduce the tendency for uric acid stone formation. Source: [facility] [employer]. Last revised 03-08-2017 Carolina Delarosa MD LAB MICROBIOLOGY - GENERAL ORDERABLES Final Result Performing Organization Address [facility] Co de Phone Number [facility] Department [place] [address] * (ABNORMAL) Erythrocyte sedimentation rate (08/26/2020 10:46 AM CDT) [facility] Erythrocyte sedimentation rate 33(H) 1 - 20 mm/hr [facility] Blood specimen (specimen) 08/26/2020 10:46 AM CDT 08/26/2020 11:30 AM CDT Carolina Delarosa MD LAB BLOOD ORDERABLES Final Result Performing Organization Address [facility] Co de Phone Number [facility] [place] [address] * Anti-double stranded DNA antibodies (08/26/2020 10:46 AM CDT) Pathologist [facility] dsDNA Ab 4.0 <=4.0 IUnits/mL [facility] Comment: Interpretive Data Negative: < or = 4 IUnits/mL Indeterminate: 5 - 9 IUnits/mL Positive: > or = 10 IUnits/mL Current interpretive data was last revised on 2016. Blood specimen (specimen) 08/26/2020 10:46 AM CDT 08/26/2020 11:30 AM CDT Carolina Delarosa MD LAB BLOOD ORDERABLES Final Result Performing Organization Address City/[facility] Co de Phone Number [facility] [place] [address] * (ABNORMAL) CRP (acute phase) (08/26/2020 10:46 AM CDT) CRP 26.5(H) <=10.0 mg/L [facility] Blood specimen (specimen) 08/26/2020 10:46 AM CDT 08/26/2020 11:30 AM CDT Carolina Delarosa MD LAB BLOOD ORDERABLES Final Result Performing Organization Address [facility] Co de Phone Number [facility] [place] [address] * C3 complement (08/26/2020 10:46 AM CDT) Complement C3 143.0 90.0 - 180.0 mg/dL [facility] Blood specimen (specimen) 08/26/2020 10:46 AM CDT 08/26/2020 11:30 AM CDT Carolina Delarosa MD LAB BLOOD ORDERABLES Final Result Performing Organization Address City/[facility] [place] [address] * (ABNORMAL) Comprehensive metabolic panel (08/26/2020 10:46 AM CDT) Sodium 138 135 - 145 mmol/L [facility] Potassium, pl 4.0 3.3 - 4.9 mmol/L [facility] Chloride 104 97 - 110 mmol/L [facility] CO2 24 22 - 32 mmol/L [facility] Anion gap 10 2 - 15 mmol/L [facility] BUN 6(L) 8 - 25 mg/dL [facility] Creatinine 0.55(L) 0.60 - 1.10 mg/dL [facility] Glucose 78 70 - 199 mg/dL [facility] [...] 2017. Calcium 9.5 8.5 - 10.3 mg/dL [facility] Bilirubin, total 0.2 0.1 - 1.2 mg/dL [facility] Protein, pl 6.9 6.5 - 8.5 g/dL [facility] Albumin 3.8 3.5 - 5.0 g/dL [facility] Alk phos 53 40 - 130 Units/L [facility] ALT 20 7 - 45 Units/L [facility] AST 20 10 - 45 Units/L [facility] Blood specimen (specimen) 08/26/2020 10:46 AM CDT 08/26/2020 11:30 AM CDT us Carolina Delarosa MD LAB BLOOD ORDERABLES Final Result [facility] [place] [address] * (ABNORMAL) CBC with auto differential (08/26/2020 [...] Delarosa MD LAB BLOOD ORDERABLES Final Result [facility] Department [place] [address] documented in this encounter Visit Diagnoses Diagnosis Other systemic lupus erythematosus with other organ involvement (HCC)- Primary Other systemic lupus erythematosus with other organ involvement (HCC) documented in this encounter Care Teams Signwriter Relationship Specialty [place] [id number] [address] [place] [address] PCP - General 07/04/19 [place] [address] [address] [facility] [place] [address] 11/16/18 Ernie Shaw MD [address] [place] [address] [address] [place] [address] [employer]indergarten T[employer] Obstetrics and Gynecology 06/10/20 documented as of this encounter
--- OUTSIDE RECORDS SUMMARY | 2024-02-24 20:07 | XMS_ITS | Encounter Summary ---
Author Organization [facility] Address [address] [place] [address] Phone Care Team Providers Care Broomcorn Scraper Name Role Phone Huseyin Dangelo MD Unavailable [phone] Brian Mon MD Primary Care Provider + Ernie Shaw MD Unavailable [phone] Reason for Referral * Diagnostic Imaging (Routine) - Closed Specialty Diagnoses / Procedures Referred By Contac t Referred To Contact Diagnoses Supervision of high-risk , unspecified trimester Procedures US Ob Follow Up Kristin Sorto MD [address] [place] [address] Phone: tel: fax: [facility] (All Locations) Referral ID Status Reason Start Date Expiration Date Visits Re quested Visits Authorized [id number] Closed 08/26/2020 02/24/2021 1 12 Reason for Visit * Reason Comments High Risk Gestation Encounter Details Date Type Department Care Team (Late st Contact Info) Description 08/26/2020 1:45 PM CDT Office Visit [facility] Maternal- Medicine [address] [place] [address] Health 7th Floor [address] [place] [id number] Kristin Sorto MD [address] [place] [address] Supervision of high-risk , unspecified trimester (Primary Dx); Secondary adrenal insufficiency (CMS/HCC); Miscarriage; Generalized anxiety disorder; Marginal insertion of umbilical cord affecting management of mother in second trimester; Placenta previa specified as without hemorrhage in second trimester; Lupus (CMS/HCC) Social History Tobacco Use Types Packs/Day Years [...] Sign Reading Time Taken Comments Blood Pressure 121/79 08/26/2020 2:14 PM CDT Pulse 102 08/26/2020 2:14 PM CDT Temperature - - Respiratory Rate - - Oxygen Saturation 97% 08/26/2020 2:14 PM CDT Inhaled Oxygen Concentration - - Weight 82.1 kg (181 lb) 08/26/2020 2:14 PM CDT Height 157.5 cm (5' 2 ) 08/26/2020 2:14 PM CDT Body Mass Index 33.11 08/26/2020 2:14 PM CDT documented in this encounter Progress Notes * Kristin Sorto MD - 08/26/2020 1:45 PM CDT M Return Consult Visit 08/26/[address] Delgado, It was a pleasure meeting again with our mutual patient in continued consultation. Carito Spence is a 30 y.o. at 18w0d whose is complicated by history of lupus,adrenal insufficeny, 2nd trimester loss and anxiety. Subjective: She reports continueing to have persistnat aches and pains rafat lower back, discomfort with sleep, anxiety, nausea, vomiting and constipation. No new complaints Objective: BP 121/79 Pulse 102 Ht 157.5 cm (5' 2 ) Wt 181 lb (82.1 kg) LMP (LMP Unknown) Comment: LMP end of Mar 2020 SpO2 97% BMI 33.11 kg/m?? General: NAD Abdomen: Gravid Extremities: scant edema Ultrasound: 08/26/2020 18w0d EFW 147 grams (79%), variable presentation, ant placenta previa, marginal cord insertion, Cervical length 49 mm. Anatomic survey read pending Assessment/Plan: Carito Spence is a 30 y.o. at 18w0d with a complicated by the following: Problem List Endocrine and Metabolic Secondary adrenal insufficiency (CMS/HCC) Overview Carito has a history of possible secondary adrenal insufficiency 2/2 chronic steroid use for her lupus. She is currently on prednisone 5 mg for her lupus. She was advised to transition to hydrocortisone or higher dose prednisone by endocrinology during her and stress-dose steroids were discussed. S/p counseling at initial visit Gravid and Miscarriage Overview S/p miscarriage x with 2nd trimester loss,2, APLS and thrombophilia w/u neg S/p counseling Normal cervical length Supervision of high-risk , unspecified trimester - Primary Overview [x] Co-management vs. [] Full [facility] Care; [x] Red Team [] Blue Team Referring Provider: Dr. Sheldon Delgado [x] Dating Criteria: US 06/04/20 with MANE 01/30/21 [] Labs: Rh [ A+], Ab [Neg ], Rubella [Imm ], HIV [Neg ], HepBSAg [Neg ], RPR [NR ], GC/CT[negative/negative] [x] Genetic Screening: [place] low risk 07/09 [x] CBC/Hgb 11.7/35.0/306 [x] Early 1hr GTT (if indicated) [] UCx: [x] Pap: 05/31/20 unsatisfactory for evaluation due to insufficient squamous cellularity [x] LD ASA (if indicated) starting at 12 weeks: [] EPDS [ ]; PNBHS referral (if indicated) 2nd Tri Labs: [] Anatomy ultrasound: 08/26/20 [] CBC/1hr gtt at 24-28wks: [] Flu Shot (Oct-Jan): [] Tdap (27-36wks): [] COVID Vaccine: [] Rhogam at 28 wks (if Rh neg): 3rd Tri Labs: [] CBC/HIV/RPR/T&S: [] GBS: [] GC/CT (if indicated): [] COVID testing: Counselling [] MOD: [] Place of delivery: [] MOC: [] Method of feeding: [] Infusion Nurse: [] PP Depression Discussed: [x] COVID VACCINE: received 1st Pfizer dose, not interested in 2nd shot after counseling Relevant Orders US Ob Follow Up Marginal [...] ~ 28 or sooner if clinically indicated Mental Health Generalized anxiety disorder Overview Ms spence reports severe anxiety and near panic in this thus far. This is not a new issuefor her, but it has significantly worsened in . 08/26: feels Zoloft is helping. S/p counseling at initial visit Plan: -[facility] referral, following -Zoloft 25 mg/day - psych referral Multi-system (Lupus, Sarcoid...) Lupus (CMS/HCC) Overview S/p counseling at initial visit Plan: -Currently takinghydroxychloroquine to 200 mg alternating with 400 mg every other day, prednisone 5mg daily -Discussion with rheum in starting azothiaprine - discontinued benlysta after counseling d/t concerns -Serial growths - testing at 32 weeks -81 mg ASA at 12 weeks -BMP q trimester for renal surveillance. -Baseline preElabs, P:C 91 Thank you for your consultation. Please don't hesitate to contact me with any questions. We will continue to follow along with Ms. Carito Spence , and will plan to see her back at about 24 weeks gestation for MFM visit and growth assessment. Kristin Sorto MD documented in this encounter Plan of Treatment Not on file documented as of this encounter Procedures Procedure Name Priority Date/Time Associated Diagnosis Comments HARMONY TEST Routine 07/14/2020 documented in this encounter Results * US Ob Follow Up (10/07/2020 9:51 AM CDT) Fetus# Fetus1 [place] Placenta Details anterior, Previa-yes [place] Estimated Weight 691 g&grams [place] Presentation Transverse Lie [place] Anatomical Region Laterality Modality Abdomen N/A Ultrasound 10/07/2020 9:54 AM CDT us Kristin Sorto MD IMG OB US PROCEDURES Briana l Result * [place] Test (07/14/2020) us Lydia Juarez MD LAB BLOOD ORDERAB LES Final Result EXTERNAL LAB documented in this encounter Visit Diagnoses Diagnosis Supervision of high-risk , unspecified trimester- Primary Secondary adrenal insufficiency (HCC) Miscarriage Unspecified spontaneous without mention of complication Generalized anxiety disorder Marginal insertion of umbilical cord affecting management of mother in second trimester Placenta previa specified as without hemorrhage in second trimester Lupus Systemic lupus erythematosus documented in this encounter Historical Medications * This list may reflect changes made after this encounter. polyethylene glycol (MIRALAX) 17 gram/dose powder Take 17 g by mouth 2 (two) times a day 08/24/2020 12/27/2020 lactulose solution 10 gram/15mL Take 20 g by mouth 2 (two) times a day 08/25/2020 08/28/2020 docusate sodium (COLACE) 100 mg capsule Take 100 mg by mouth 2 (two) times a day 08/24/2020 09/08/2020 bisacodyL (DULCOLAX) 10 mg suppository Insert 10 mg into the rectum daily as needed 08/24/2020 09/03/2020 added in this encounter Care Teams Broomcorn Scraper Relationship Specialty [place] [id number] [address] PCP - General 07/04/19 [place] [address] [facility] [address] [place] [address] 11/16/18 Ernie Shaw MD [address] [facility] [facility] [address] [place] [address] Cell Stripper Final Obstetrics and Gynecology 06/10/20 documented as of this encounter
--- OUTSIDE RECORDS SUMMARY | 2024-02-24 20:07 | XMS_ITS | Encounter Summary ---
Author Organization [facility] Address [address] [place] [address] Care Team Providers Care Release And Technical Records Clerk Name Role Phone Huseyin Dangelo MD Unavailable [phone] Brian Mon MD Primary Care Provider + Ernie Shaw MD Unavailable [phone] Reason for Visit * Reason Comments COVID-19 EVALUATION Symptom onset x4 day s, c/o sore throat, body aches, fever 101.2, sob. Denies nasal congestion. Pt was exposed to covid + individual 08/09. Pt has no hx of covid vaccine, received first dose of covid vaccine around 05/2020. Encounter Details Date Type Department Care Team (Late st Contact Info) Description 08/18/2020 4:30 PM CDT Office Visit [facility] [address] [place] [id number] Dayna Cruz, [place] [address] [place] [address] Sore throat Social History Tobacco Use Types [...] Sign Reading Time Taken Comments Blood Pressure 112/60 08/18/2020 4:19 PM CDT Pulse 79 08/18/2020 4:19 PM CDT Temperature 36.8 ??C (98.3 ??F) 08/18/2020 4:19 PM CD T Respiratory Rate 22 08/18/2020 4:19 PM CDT Oxygen Saturation 98% 08/18/2020 4:19 PM CDT Inhaled Oxygen Concentration - - Weight 82.1 kg (181 lb) 08/18/2020 4:19 PM CDT Height 157.5 cm (5' 2 ) 08/18/2020 4:19 PM CDT Body Mass Index 33.11 08/18/2020 4:19 PM CDT documented in this encounter Patient Instructions * Patient Instructions* Dayna Cruz NP - 08/18/2020 4:30 PM CDT You have an upper respiratory infection with is viral. It is the common cold. Treatment is supportive over the counter therapy. You may use Tylenol for pain or fever. You can use a cough expectorant like Mucinex if you have chest congestion with thick mucus. Benadrylcan be used to dry up a runny nose, and sudafed can help with nasal congestion. A humidifier may provide some relief. Drink plenty of fluids and stay hydrated. Get plenty of rest documented in this encounter Progress Notes * Dayna Cruz NP - 08/18/2020 5:00 PM CDT Images from the original note were not included. Patient ID: Carito Madison is a 30 y.o. female followed by Brian Mon MD Patient was wearing the following PPE: mask. MA was wearing the following PPE: mask, gown, gloves and face shield. Provider was wearing the following PPE: mask, gown, gloves and face shield. Chief Complaint Patient presents with ??? COVID-19 EVALUATION Symptom onset x4 days, c/o sore throat, body aches, fever 101.2, sob. Denies nasal congestion. Pt was exposed to covid + individual 08/09. Pt has no hx of covid vaccine, received first dose of covid vaccine around 05/2020. URI This is a new problem. The current episode started in the past 7 days (4-5 days). The problem has been unchanged. The maximum temperature recorded prior to her arrival was 101 - 101.9 F. The fever has been present for less than 1 day. Associated symptoms include coughing, headaches (few days ago), shortness of breath, a sore throat and swollen glands. Pertinent negatives include no abdominal pain, chest pain, congestion, diarrhea, dysuria, ear pain, nausea, neck pain, plugged ear sensation, rash, rhinorrhea, sinus pain, sneezing, vomiting or wheezing. She has tried acetaminophen (tylenol PM) for the symptoms. The treatment provided mild relief. Patient presents to clinic for assessment of Chief Complaint Patient presents with ??? COVID-19 EVALUATION Symptom onset x4 days, c/o sore throat, body aches, fever 101.2, sob. Denies nasal congestion. Pt was exposed to covid + individual 08/09. Pt has no hx of covid vaccine, received first dose of covid vaccine around 05/2020. . Patient reports SORE THROAT and BODY ACHES Patient reports this has been going on for 4-5 days. Patient with sick or suspected COVID-19 contacts: No Patient has following risks for COVID-19: Patient is immunosuppressed Review of Systems Constitutional: Negative for appetite change, chills, fatigue and fever. HENT: Positive for sore throat. Negative for congestion, ear pain, postnasal drip, rhinorrhea, sinus pain, sneezing and trouble swallowing. Eyes: Negative for pain, discharge, redness and itching. Respiratory: Positive for cough and shortness of breath. Negative for chest tightness and wheezing. Cardiovascular: Negative for chest pain and leg swelling. Gastrointestinal: Negative for abdominal pain, constipation, diarrhea, nausea and vomiting. Genitourinary: Negative for difficulty urinating, dysuria, frequency and urgency. EDC 01/27/2021 Musculoskeletal: Positive for myalgias. Negative for back pain and neck pain. Skin: Negative for rash and wound. Allergic/Immunologic: Negative for environmental allergies and food allergies. Neurological: Positive for headaches (few days ago). Negative for dizziness and weakness. Current Outpatient Medications Medication Sig Dispense Refill ??? aspirin 81 mg enteric coated tablet Take 81 mg by mouth daily ??? hydrOXYchloroQUINE (PLAQUENIL) 200 mg tablet Take 2 tablets (400 mg total) by mouth daily 60 tablet 0 ??? omeprazole (PriLOSEC) 20 mg capsule Take 20 mg by mouth daily ??? ondansetron ODT (ZOFRAN-ODT) 8 mg disintegrating tablet Dissolve 1 tablet on top of tongue thenswallow with saliva every 8 hours as needed for nausea or vomiting ??? predniSONE (DELTASONE) 5 mg tablet TAKE 2 TABLETS(10 MG) BY MOUTH DAILY 60 tablet 0 ??? sertraline (ZOLOFT) 50 mg tablet Take 1.5 tablets (75 mg total) by mouth daily 45 tablet 2 ??? azaTHIOprine (IMURAN) 50 mg tablet Take 1 tablet (50 mg total) by mouth daily (Patient not taking: Reported on 06/22/2020) 30 tablet 1 ??? belimumab (Benlysta) auto-injector Inject 1 mL (200 mg total) under the skin every 7 days (Patient not taking: Reported on 06/11/2020) 4 Syringe 3 ??? bromocriptine (PARLODEL) 2.5 mg tablet Take 2.5 mg by mouth 2 (two) times a day ??? ergocalciferol (VITAMIN D) 50,000 unit capsule TAKE 1 CAPSULE BY MOUTH ONE TIME PER WEEK ??? ferrous gluconate 324 mg (38 mg of elemental iron) tablet TAKE 1 TABLET BY MOUTH THREE TIMES A DAY (Patient not taking: Reported on 06/22/2020) 90 tablet 2 ??? hydrocortisone (CORTEF) 5 mg tablet Take 2 tabs (10 mg) in morning and 1 tab (5 mg) in afternoon (Patient not taking: Reported on 06/14/2020) 270 tablet 3 ??? ipratropium (ATROVENT) 0.03 % nasal spray INSTILL 1 SPRAY IN EACH NOSTRIL TWICE DAILY ??? meclizine (ANTIVERT) 25 mg tablet Take 1 tablet (25 mg total) by mouth 3 (three) times a day asneeded for dizziness (Patient not taking: Reported on 05/14/2020) 30 tablet 0 ??? multivitamin capsule Take 1 capsule by mouth daily (Patient not taking: Reported on 08/18/2020) ??? ondansetron (ZOFRAN) 4 mg tablet Take 1 tablet (4 mg total) by mouth every 8 (eight) hours as needed for nausea or vomiting (Patient not taking: Reported on 07/08/2020) 20 tablet 0 ??? predniSONE (DELTASONE) 1 mg tablet prednisone 1 mg tablet TAKE 1 TABLET BY MOUTH EVERY DAY (Patient not taking: Reported on 08/18/2020) ??? progesterone (PROMETRIUM) 200 mg capsule Take by mouth daily (Patient not taking: Reported on 08/18/2020) ??? triamcinolone (KENALOG) 0.1 % cream Apply topically 2 (two) times a day (Patient not taking: Reported on 05/14/2020) 30 g 0 ??? valACYclovir (VALTREX) 500 mg tablet TAKE 1 TAB BY MOUTH 3 TIMES DAILY FOR 7 DAYS. ??? Ventolin HFA 90 mcg/actuation inhaler INHALE TWO PUFFS BY MOUTH EVERY FOUR HOURS NEEDED FOR WHEEZING/COUGH No current facility-administered medications for this visit. Past Medical History: Diagnosis Date ??? Anemia ??? Anxiety ??? Asthma ??? Chronic diarrhea ??? Chronic kidney disease ??? Depression ??? Fibromyalgia ??? Fibromyalgia ??? Headache, tension-type ??? Lupus (CMS/HCC) ??? Migraine ??? PONV (postoperative nausea and vomiting) ??? 07/13/2015 ??? Rheumatoid arthritis (CMS/HCC) ??? Seizures (CMS/HCC) There is no immunization history on file for this patient. Social History Tobacco Use Smoking Status Former Smoker ??? Quit date: 12/28/2018 ??? Years since quittin.6 Smokeless Tobacco Never Used Vitals: 08/18/20 1619 BP: 112/60 BP Location: Left arm Patient Position: Sitting Pulse: 79 Resp: 22 Temp: 36.8 ??C (98.3 ??F) TempSrc: Oral SpO2: 98% Weight: 82.1 kg (181 lb) Height: 157.5 cm (5' 2 ) Physical Exam Vitals and nursing note reviewed. Constitutional: General: She is awake. Appearance: Normal appearance. She is well-developed, well-groomed and overweight. HENT: Head: Normocephalic and atraumatic. Right Ear: Tympanic membrane and external ear normal. Left Ear: Tympanic membrane and external ear normal. Nose: Nose normal. Mouth/Throat: Lips: Atkinson. Mouth: Mucous membranes are moist. Pharynx: Oropharynx is clear. Eyes: General: Lids are normal. Conjunctiva/sclera: Conjunctivae normal. Pupils: Pupils are equal, round, and reactive to light. Cardiovascular: Rate and Rhythm: Normal rate and regular rhythm. Pulmonary: Effort: Pulmonary effort is normal. Breath sounds: Normal breath sounds. No wheezing. Abdominal: General: Bowel sounds are normal. Palpations: Abdomen is soft. Musculoskeletal: General: Normal range of motion. Cervical back: Normal range of motion and neck supple. Skin: General: Skin is warm and dry. Capillary Refill: Capillary refill takes less than 2 seconds. Neurological: Mental Status: She is alert and oriented to person, place, and time. Psychiatric: Behavior: Behavior normal. Behavior is cooperative. Assessment/Plan Diagnoses and all orders for this visit: Sore throat - POCT rapid strep A - COVID-19 POC - Throat culture Throat; Future Results for orders placed or performed in visit on 08/18/20 POCT rapid strep A Result Value Ref Range Rapid Strep A, POC Negative COVID-19 POC Result Value Ref Range COVID-19 Ag POC Presumptive Negative Presumptive Negative, Invalid You have an upper respiratory infection with is viral. It is the common cold. Treatment is supportive over the counter therapy. You may use Tylenol for pain or fever. You can use a cough expectorant like Mucinex if you have chest congestion with thick mucus. Benadrylcan be used to dry up a runny nose, and sudafed can help with nasal congestion. A humidifier may provide some relief. Drink plenty of fluids and stay hydrated. Get plenty of rest Discussed COVID testing reasoning Reviewed isolation/quarantine protocols Discussed symptomatic relief of symptoms Discussed need to return to ER for further evaluation including worsening fevers, shortness of breath, of other concerning symptoms Advised to rest and stay adequately hydrated Orders Placed This Encounter Procedures ??? Throat culture Throat Standing Status: Future Standing Expiration Date: 08/18/2021 ??? POCT rapid strep A ??? COVID-19 POC Order Specific Question: Is the Patient experiencing symptoms consistent with COVID? Answer: Yes Order Specific Question: Date of Symptom Onset Answer: 08/15/2020 Order Specific Question: Is the patient hospitalized? [...] Question: Is the patient ? Answer: Yes Dayna Cruz NP documented in this encounter Plan of Treatment Not on file documented as of this encounter Procedures Procedure Name Priority Date/Time Associated Diagnosis Comments COVID-19 POC Routine 08/18/2020 4:49 PM CDT Sore throat POCT RAPID STREP Routine 08/18/2020 4:44 PM CDT Sore throat documented in this encounter Results * COVID-19 POC (08/18/2020 4:49 PM CDT) [facility] COVID-19 Ag POC (BD Veritor) Presumptive Negative Presumptive Negative, Invalid [facility] Nasal 08/18/2020 4:49 PM CDT Dayna Cruz NP POINT OF CARE TEST ORDERABLES Final Result [facility] My Ad BoxMER[facility] HOSPITALMacuCLEAR [address] [place] [address] * POCT rapid strep A (08/18/2020 4:44 PM CDT) [facility] Rapid Strep A, POC Negative Swab 08/18/2020 4:44 PM CDT Dayna Cruz NP POINT OF CARE TEST ORDERABLES Final Result * Throat culture Throat (08/18/2020 4:40 PM CDT) Report Final Report: No growth of pathogens. [facility] POLLARD Comment:Testing performed by : [facility], [address] [place]., [address] Throat 08/18/2020 4:40 PM CDT 08/18/2020 9:55 PM CDT Narrative [facility] - 08/20/2020 12:20 AM CDT Testing performed by [facility] ([phone]). Dayna Cruz NP LAB MICROBIOLOGY - GENERAL OR DERABLES Final Result [facility] [address] Department [place] [address] documented in this encounter Visit Diagnoses Diagnosis Sore throat Acute pharyngitis Sore throat Acute pharyngitis documented in this encounter Historical Medications * This list may reflect changes made after this encounter. aspirin 81 mg enteric coated tablet Take 81 mg by mouth daily 1 ondansetron ODT (ZOFRAN-ODT) 8 mg disintegrating tablet Dissolve 1 tablet on top of tongue then swallow with saliva every 8 hours as needed for nausea or vomiting 08/16/2020 1 added in this encounter Additional Health Concerns Infection Onset Date Last Indicated Resolved Time COVID: Suspected 08/18/2020 08/18/2020 08/18/2020 4:51 PM CDT documented as of this encounter Care Teams Release And Technical Records Clerk Relationship Specialty [place] [id number] [address] [facility] [address] [place] [address] PCP - General 07/04/19 [place] [address] [facility] [address] [place] [address] 11/16/18 Ernie Shaw MD [address] [place] [address] [address] [place] [address] [employer] Obstetrics and Gynecology 06/10/20 documented as of this encounter
--- OUTSIDE RECORDS SUMMARY | 2024-02-24 20:07 | XMS_ITS | Encounter Summary ---
Author Organization [facility] Address [address] [place] [address] Phone Care Team Providers Care Disease Control Inspector Name Role Phone Huseyin Dangelo MD Unavailable [phone] Brian Mon MD Primary Care Provider + Ernie Shaw MD Unavailable [phone] Encounter Details Date Type Department Care Team (Late st Contact Info) Description 08/19/2020 Telephone [facility] Psychiatry [address] [place] [address] Courtney June BS Social History Tobacco Use Types Packs/Day [...] encounter Miscellaneous Notes * Telephone Encounter - Courtney June BS - 08/19/2020 1:39 PM CDT Behavioral Health Service ATTEMPTED Phone Contact By SAMSON Benitez to Carito Madison 1990 Objective of Call: Follow up on initial referral Outcome:Left Voicemail with standard instructions to call [facility] Office at [phone] Notes, if applicable: Coordinator reached out to discuss plan of care moving forward after meeting with Dr. Cruz. Left pt a voicemail. SAMSON Benitez [facility] Department of Psychiatry [phone] documented in this encounter Plan of Treatment Not on file documented as of this encounter Visit Diagnoses Not on filedocumented in this encounter Care Teams Disease Control Inspector Relationship Specialty [place] [address] [address] [facility] [place] [address] PCP - General 07/04/19 [place] [address] [address] [place] [address] 11/16/18 Ernie Shaw MD [address] [place] [address] [address] [place] [address] [address] Officer Obstetrics and Gynecology 06/10/20 documented as of this encounter
--- OUTSIDE RECORDS SUMMARY | 2024-02-24 20:07 | XMS_ITS | Encounter Summary ---
Author Organization [facility] Address [address] [place] [address] Care Team Providers Care Wireline Field Operator Name Role Phone Huseyin Dangelo MD Unavailable [phone] Brian Mon MD Primary Care Provider + Ernie Shaw MD Unavailable [phone] Encounter Details Date Type Department Care Team (Latest Contact Info) Description 09/06/2020 12:41 PM CDT - 09/06/2020 7:00 PM CDT Hospital Encounter [address] [address] Nathalie Shukla MD [address] [id number] Discharge Disposition: Discharge to home or self [...] Sign Reading Time Taken Comments Blood Pressure 136/75 09/06/2020 3:20 PM CDT Pulse 90 09/06/2020 3:20 PM CDT Temperature 36.5 ??C (97.7 ??F) 09/06/2020 1:28 PM CD T Respiratory Rate 16 09/06/2020 1:28 PM CDT Oxygen Saturation 92% 09/06/2020 3:20 PM CDT Inhaled Oxygen Concentration - - Weight - - Height - - Body Mass Index - - documented in this encounter Discharge Diagnoses Diagnosis Mild hyperemesis gravidarum - MILD HYPEREMESIS GRAVIDARUM Other specified related conditions, second trimester - OTHER SPECIFIED RELATED CONDITIONS, SECOND TRIMESTER Dizziness and giddiness - DIZZINESS AND GIDDINESS 19 weeks gestation of - 19 WEEKS 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 OF oil heaterman (current) use of aspirin - SENIOR CARE (CURRENT) USE OF ASPIRIN Other penitentiary (current) drug therapy - OTHER PAINTINGS CONSERVATOR (CURRENT) DRUG THERAPY Personal history of nicotine dependence - PERSONAL HISTORY OF NICOTINE DEPENDENCE Other mental disorders complicating , second trimester - OTHER MENTAL DISORDERS COMPLICATING , SECOND TRIMESTER Anxiety disorder, unspecified - ANXIETY DISORDER, UNSPECIFIED Major depressive disorder, single episode, unspecified - MAJOR DEPRESSIVE DISORDER, SINGLE EPISODE, UNSPECIFIED Systemic lupus erythematosus, unspecified (HCC) - SYSTEMIC LUPUS ERYTHEMATOSUS, UNSPECIFIED related renal disease, second trimester - RELATED RENAL DISEASE, SECOND TRIMESTER Chronic kidney disease, unspecified - CHRONIC KIDNEY DISEASE, UNSPECIFIED Diseases of the respiratory system complicating , second trimester - DISEASES OF THE RESPIRATORY SYSTEM COMPLICATING , SECOND TRIMESTER Unspecified asthma, uncomplicated - UNSPECIFIED ASTHMA, UNCOMPLICATED documented in this encounter Discharge Instructions * Discharge Instructions* Rachelle Elizabeth, PRO - 09/06/2020 6:54 PM CDT at 19 to 22 Weeks WHAT YOU NEED TO KNOW: Now that you are in your second trimester, you have more energy. You may also be feeling hungrier than usual. You may be gaining about ?? to 1 pound a week, and your is beginning to show. You may need to start wearing maternity clothes. As your baby gets larger, you may have other symptoms. These may include body aches or stretch dior on your abdomen, breasts, thighs, or buttocks. DISCHARGE INSTRUCTIONS: Return to the emergency department [...] your healthcare provider if: ?? You have abdominal cramps, pressure, or tightening. ?? You have a change in vaginal discharge. ?? You cannot keep food or drinks down, and you are losing weight. ?? You have chills or a fever. [...] as swordfish, tilefish,bryce mackerel, and shark. ?? Take vitamins as directed. Your need [...] that are happening with your baby: By 22 weeks, your baby is about 8 inches long from the top of the head to the rump (baby's bottom). Your baby also weighs about 1 pound. Your baby is becoming much more active. You may be able to feel the baby move inside you now. The first movements may not be that noticeable. They may feel like a fluttering sensation. As time goes on, your baby's movements will become stronger and more noticeable. What you need to know about care: During the first 28 weeks of your , you will see your healthcare provider once a month. Your healthcare provider will check your blood pressure andweight. You may also need the following: ?? A urine test may also be [...] with your kidneys and other organs. ?? Fundal height is a measurement of your uterus to check your baby's growth. This number is usually the same as the number of weeks that you have been . ?? A ultrasound shows pictures of your baby inside your uterus. It shows your baby's development. The movement and position of your baby can also be seen. Your healthcare provider may be able to tell you what your baby's gender is during the ultrasound. ?? Your baby's heart rate will be checked. ?? 2017 [employer] Information is for End User's use only and may not be sold, redistributed or otherwise used for commercial purposes. All illustrations and images included in CareNotes?? are the copyrighted property of [employer], [employer] or [employer]. The above information is an environmental engineering aide only. It is not intended as medical advice for individual conditions or treatments. Talk to your doctor, nurse or pharmacist before following any medical regimen to see if it is safe and effective for you. documented in this encounter Medications at Time of Discharge docusate sodium (COLACE) 100 mg capsule Take 100 mg by mouth 2 (two) times a day 08/24/2020 1 aspirin 81 mg enteric coated tablet Take 81 mg by mouth daily 1 azaTHIOprine (IMURAN) 50 mg tablet Take 1 tablet (50 mg total) by mouth daily 30 tablet 1 06/14/2020 1 belimumab (Benlysta) auto-injector Inject 1 mL (200 mg total) under the skin every 7 days 4 Syringe 3 07/23/2019 1 bromocriptine (PARLODEL) 2.5 mg tablet Take 2.5 mg by mouth 2 (two) times a day 05/12/2020 1 ergocalciferol (VITAMIN D) 50,000 unit capsule TAKE 1 CAPSULE BY MOUTH ONE TIME PER WEEK 06/21/2019 1 ferrous gluconate 324 mg (38 mg of elemental iron) tabletIndications:I anila deficiency TAKE 1 TABLET BY MOUTH THREE TIMES A DAY 90 tablet 2 02/16/2020 1 hydrocortisone (CORTEF) 5 mg tabletIndications:A drenal Cortical Insufficiency Take 2 tabs (10 mg) in morning and 1 tab (5 mg) in afternoon 270 tablet 3 05/31/2020 1 hydrOXYchloroQUINE (PLAQUENIL) 200 mg tablet Take 2 tablets (400 mg total) by mouth daily 60 tablet 06/14/2020 1 ipratropium (ATROVENT) 0.03 % nasal spray INSTILL 1 SPRAY IN EACH NOSTRIL TWICE DAILY 01/28/2020 1 meclizine (ANTIVERT) 25 mg tabletIndications:D izziness Take 1 tablet (25 mg total) by mouth 3 (three) times a day as needed for dizziness 30 tablet 02/03/2020 1 multivitamin capsule Take 1 capsule by [...] mouth daily 45 tablet 2 08/12/2020 1 triamcinolone (KENALOG) 0.1 % cream Apply topically 2 (two) times a day 30 g 01/31/2020 1 valACYclovir (VALTREX) 500 mg tablet TAKE 1 TAB BY MOUTH 3 TIMES DAILY FOR 7 DAYS. 12/03/2019 1 Ventolin HFA 90 mcg/actuation inhaler INHALE TWO PUFFS BY MOUTH EVERY FOUR HOURS NEEDED FOR WHEEZING/COUGH 12/28/2019 1 documented as of this encounter Discharge Disposition Disposition Code Departure Means Destination Discharge to home or self care documented in this encounter H&P Notes * Maura Moreno MD - 09/06/2020 2:10 PM CDT Obstetrics H&P Chief Complaint: lightheadedness Estimated Date of Delivery: 01/27/21 Provider: RENETTA HPI: Carito Madison is a 30 y.o. female at 19w4d gestation, dated by 1st trimester ultrasound. Pt c/o vomiting x 2 days, after eating some seafood. Also c/o persistent lightheadedness. Pt reports that she feels achy, denies fever. Reports taking tylenol just prior to coming to [facility] for body aches. Reports that she has been f/b is complicated by history of lupus, adrenal insufficeny, 2nd trimester loss and anxiety. Patient Denies: [] Contractions [] Shortness of Breath [] Nausea/Vomitting [] Vaginal Bleeding [] Headache [] Abdominal Pain [] Leaking of Fluid [] Visual changes [] Decreased Movement OB History Para Term AB Living 3 1 0 1 1 0 SAB TAB Ectopic Multiple Live Births 1 0 0 0 1 # Outcome Date GA Lbr Rojas/2nd Weight Sex Delivery Anes PTL Lv 3 Current 2 20w0d ND 1 SAB ORDNANCE OFFICER History: No LMP recorded (lmp unknown). Patient is . History of Abnormal Pap: None STD History: none Past Medical History: Diagnosis Date Anemia Anxiety Asthma Chronic diarrhea Chronic kidney disease Depression Fibromyalgia Fibromyalgia Headache, tension-type Lupus (CMS/HCC) Migraine PONV (postoperative nausea and vomiting) 07/13/2015 Rheumatoid arthritis (CMS/HCC) Seizures (CMS/HCC) Chronic hypertension: No Diabetes: No Asthma: No [...] Former Smoker Quit date: 12/28/2018 Years since quittin.6 Smokeless tobacco: Never Used Vaping Use Vaping Use: Never used Substance and Sexual Activity Alcohol use: Yes Comment: occasionally Drug use: Not Currently Types: Marijuana Comment: smoked last night Sexual activity: Yes Partners: Male Support System: [...] or developmental delay: No Allergies Allergen Reactions Methylprednisolone Anaphylaxis and Syncope Syncope Penicillins Hives and Rash Amoxicillin Rash Escitalopram Other (See comments) and Rash Caused seizures Caused seizures Caused seizures Aripiprazole Other (See comments) Reglan [Metoclopramide] Dizziness Venlafaxine Itching HOME MEDICATIONS : aspirin 81 mg enteric coated tablet azaTHIOprine (IMURAN) 50 mg tablet belimumab (Benlysta) auto-injector bromocriptine (PARLODEL) 2.5 mg tablet docusate sodium (COLACE) 100 mg capsule ergocalciferol (VITAMIN D) 50,000 unit capsule ferrous gluconate 324 mg (38 mg of elemental iron) tablet hydrocortisone (CORTEF) 5 mg tablet hydrOXYchloroQUINE (PLAQUENIL) 200 mg tablet ipratropium (ATROVENT) 0.03 % nasal spray meclizine (ANTIVERT) 25 mg tablet multivitamin capsule omeprazole (PriLOSEC) 20 mg capsule ondansetron (ZOFRAN) 4 mg tablet ondansetron ODT (ZOFRAN-ODT) 8 mg disintegrating tablet polyethylene glycol (MIRALAX) 17 gram/dose powder predniSONE (DELTASONE) 1 mg tablet predniSONE (DELTASONE) 5 mg tablet progesterone (PROMETRIUM) 200 mg capsule sertraline (ZOLOFT) 50 mg tablet triamcinolone (KENALOG) 0.1 % cream valACYclovir (VALTREX) 500 mg tablet Ventolin HFA 90 mcg/actuation inhaler Review of Sys: Negative except per HPI Vitals: Temp: [36.5 ??C (97.7 ??F)] 36.5 ??C (97.7 ??F) Pulse: [88-103] 90 Resp: [16] 16 BP: (131-133)/(77-84) 132/84 Labs Review: Recent Results (from the past 24 hour(s)) CBC without differential Collection Time: 09/06/20 2:49 PM Result Value Ref Range WBC 8.9 3.8 - 9.9 K/cumm Hgb 10.8 (L) 11.9 - 15.5 g/dL Hct 32.4 (L) 35.6 - 45.5 % Plt 264 150 - 400 K/cumm MPV 9.6 9.1 - 12.3 fL RBC 3.67 (L) 3.90 - 5.20 M/cumm MCV 88.3 81.3 - 96.4 fL MCH 29.4 27.1 - 33.3 pg MCHC 33.3 32.3 - 35.7 g/dL RDW CV 13.8 11.1 - 14.9 % RDW SD 44.3 35.7 - 48.1 fL NRBC abs 0.00 0.00 - 0.01 K/cumm POCT urinalysis dipstick Collection Time: 09/06/20 2:58 PM Result Value Ref Range Color, Urine, POC Yellow Clarity, ur, POC Clear Clear Glucose, ur, POC Negative Negative mg/dL Bilirubin, ur, POC Negative Negative, Small, Moderate, Large Ketones, ur, POC Small (A) Negative Specific [place], POC 1.020 1.005 - 1.030 Blood, ur, POC Negative Negative pH, ur, POC 7.0 5.0 - 8.0 Protein, ur, POC Negative Negative Urobilinogen, urine, POC 0.2 0.2 - 1.0 mg/dL Nitrite, ur, POC Negative Negative Leukocytes, ur, POC Negative Negative Lot Number [id number] Comprehensive metabolic panel Collection Time: 09/06/20 5:52 PM Result Value Ref Range Sodium 139 135 - 145 mmol/L Potassium, pl 3.5 3.3 - 4.9 mmol/L Chloride 102 97 - 110 mmol/L CO2 23 22 - 32 mmol/L Anion gap 14 2 - 15 mmol/L BUN 5 (L) 8 - 25 mg/dL Creatinine 0.50 (L) 0.60 - 1.10 mg/dL Glucose 96 70 - 199 mg/dL Calcium 9.6 8.5 - 10.3 mg/dL Bilirubin, total 0.2 0.1 - 1.2 mg/dL Protein, pl 6.7 6.5 - 8.5 g/dL Albumin 3.7 3.5 - 5.0 g/dL Alk phos 57 40 - 130 Units/L ALT 25 7 - 45 Units/L AST 17 10 - 45 Units/L Physical Exam: General: NAD, mood appropriate Cardiovascular: Regular rate and rhythm Pulmonary: Clear to ausculation bilaterally Abdomen: Gravid, non-tender Extremities: Warm and well perfused Speculum Exam: no pooling of fluid seen, blood: none, vaginal discharge white Cervix: vis closed Wet prep: no clue cells, no trich, few WBC, pH 4 Monitoring: FHR 138 Ultrasound: 08/26 variable presentation presentation Anterior placenta Previa: Yes Estimated Weight: 247g (79th%) by US, date performed 08/26 Labs: Lab Results Component Value Date ABORH A Positive 08/02/2020 IDCOOMB Negative ABSC 08/02/2020 Assessment and Plan Carito Madison is a 30 y.o. female at 19w4d who presented with lightheadedness #FWB: FHR 138, +FM #MWB: VSS Nausea/Vomiting VSS, Labs: CBC/CMP - stable, unchanged from previous Resolved with zofran, Pt has Rx at home PO challenge completed, pt tolerated well ABD exam benign, no e/o intra-abd pathology Discussed interventions to minimize nausea/vomiting #Lightheadedness No e/o dehyration - ortho stats neg No e/o cardiac etiology - heart rate wnl, EKG wnl Encouraged to f/u w/ ENT as previously seen for same complaint Electrolytes wnl Plan discussed with Dr. Homer Cabrera, PIECE WORK INSPECTOR 09/06/20 Fellow Attestation I have not seen or examined the patient but agree with the above documented assessment and plan. Briefly, the patient is a at 19w4d who presents for lightheadedness. This is actually a chronic issue for her but she felt it worsened after mild GI distress. CBC, CMP, ekg all reassuring. She reports symptomatic relief, discharge with return precautions. Faizan Coronel MD Maternal- Medicine Fellow, PGY-6 I have reviewed and agree with the documentation by the resident/PIECE WORK INSPECTOR. I did not see the patient. Maura Moreno MD documented in this encounter Nursing Notes * Rachelle Elizabeth, PRO - 09/06/2020 7:00 PM CDT Patient presented to [facility] from home complaining of n/v, lightheadedness, lower abd pain, and overalljust not feeling well. Has not started feeling FM yet, VB on Sunday, went to ED, since resolved, denies LOF FHT obtained via doppler VSS, Urine Dip abnormal IV started, labs drawn and sent, orthostatics and EKG preformed. Pt called out requesting her dose of prednisone because she vomited after taking her scheduled dosethis morning. Given to pt. Pt called out to ask about CMP results and to see if she could dc home. Roman Cabrera NP cleared for d/c home at this time. Discharged home in stable condition with reference, strict bleeding precautions, and [place] precautions. Pt instructed to keep all follow up appts as scheduled. Pt verbalizes understanding anddenies further needs at present. 09/06/2020 Rachelle Simpson RN documented in this encounter Plan of Treatment Not on file documented as of this encounter Procedures Procedure Name Priority Date/Time Associated Diagnosis Comments COMPREHENSIVE METABOLIC PANEL STAT 09/06/2020 5:52 PM CDT ECG 12-LEAD Routine 09/06/2020 3:31 PM CDT POCT URINALYSIS DIPSTICK Routine 09/06/2020 2:58 PM CDT CBC WITHOUT DIFFERENTIAL STAT 09/06/2020 2:49 PM CDT documented in this encounter Results * (ABNORMAL) Comprehensive metabolic panel (09/06/2020 5:52 PM CDT) Sodium 139 135 - 145 mmol/L [facility] Potassium, pl 3.5 3.3 - 4.9 mmol/L [facility] Chloride 102 97 - 110 mmol/L [facility] CO2 23 22 - 32 mmol/L [facility] Anion gap 14 2 - 15 mmol/L [facility] BUN 5(L) 8 - 25 mg/dL [facility] Creatinine 0.50(L) 0.60 - 1.10 mg/dL [facility] Glucose 96 70 - 199 mg/dL [facility] Comment: Interpretive Data Fasting glucose >/= 126 [...] Calcium 9.6 8.5 - 10.3 mg/dL [facility] Bilirubin, total 0.2 0.1 - 1.2 mg/dL [facility] Protein, pl 6.7 6.5 - 8.5 g/dL [facility] Albumin 3.7 3.5 - 5.0 g/dL [facility] Alk phos 57 40 - 130 Units/L [facility] ALT 25 7 - 45 Units/L [facility] AST 17 10 - 45 Units/L [facility] Blood specimen (specimen) 09/06/2020 5:52 PM CDT 09/06/2020 6:07 PM CDT us Shaye Cabrera NP LAB BLOOD ORDERABLES Final Result Performing Organization Address [facility]/ZIP Co de Phone Number [facility] Department [place] [address] * ECG 12 lead (09/06/2020 3:31 PM CDT) Pathologist [facility] Ventricular Rate EKG/Min 80 BPM [facility] Atrial Rate 80 BPM [facility] MO-Interval (MSEC) 132 ms [facility] QRS-Interval (MSEC) 86 ms [facility] QT-Interval (MSEC) 382 ms [facility] QTc 440 ms [facility] P [place] 32 degrees [facility] R [place] 58 degrees [facility] T [place] 13 degrees [facility] Diagnosis Normal sinus rhythm Normal ECG When compared with ECG of 23-JUN-2020 15:21, No significant change was found Confirmed by LAURA LOPES M.D ([id number]) on 09/07/2020 11:53:31 AM [facility] 09/06/2020 3:31 PM CDT 09/07/2020 11:53 AM CDT Shaye Cabrera NP ECG ORDERABLES Final Resu lt Performing Organization Address [facility] Co de Phone Number [facility] * (ABNORMAL) POCT urinalysis dipstick (09/06/2020 2:58 PM CDT) Color, Urine, POC Yellow Clarity, ur, POC Clear Clear Glucose, ur, POC Negative Negative mg/dL Bilirubin, ur, POC Negative Negative, Small, Moderate, Large Ketones, ur, POC Small(A) Negative Specific [place], POC 1.020 1.005 - 1.030 Blood, ur, POC Negative Negative pH, ur, POC 7.0 5.0 - 8.0 Protein, ur, POC Negative Negative Urobilinogen, urine, POC 0.2 0.2 - 1.0 mg/dL Nitrite, ur, POC Negative Negative Leukocytes, ur, POC Negative Negative Lot Number [id number] Urine 09/06/2020 2:58 PM CDT Shaye Cabrera NP POINT OF CARE TEST ORDERAB LES Final Result * (ABNORMAL) CBC without differential (09/06/2020 2:49 PM CDT) [facility] WBC 8.9 3.8 - 9.9 K/cumm [facility] Hgb 10.8(L) 11.9 - 15.5 g/dL [facility] Hct 32.4(L) 35.6 - 45.5 % [facility] Plt 264 150 - 400 K/cumm [facility] MPV 9.6 9.1 - 12.3 fL [facility] RBC 3.67(L) 3.90 - 5.20 M/cumm [facility] MCV 88.3 81.3 - 96.4 fL [facility] MCH 29.4 27.1 - 33.3 pg [facility] MCHC 33.3 32.3 - 35.7 g/dL [facility] RDW CV 13.8 11.1 - 14.9 % [facility] RDW SD 44.3 35.7 - 48.1 fL [facility] NRBC abs 0.00 0.00 - 0.01 K/cumm [facility] Blood specimen (specimen) 09/06/2020 2:49 PM CDT 09/06/2020 3:21 PM CDT Shaye Cabrera NP LAB BLOOD ORDERABLES Final Result [facility] Department [place] [address] documented in this encounter Visit Diagnoses Not on filedocumented in this encounter Administered Medications Inactive Administered Medications - up to 3 most recent administrations Medication Order MAR Action Action Date Dose Rate Site Lactated Ringer's (LR) bolus 1,000 mL 1,000 mL, intravenous, Once, On Sun09/06/20 at 1530, For 1 dose New Bag 09/06/2020 3:06 PM CDT 1,000 mL ondansetron (ZOFRAN) tablet 4 mg 4 mg, oral, Once, On Sun09/06/20 at 1730, For 1 dose Given 09/06/2020 4:56 PM CDT 4 mg predniSONE (DELTASONE) tablet 5 mg 5 mg, oral, Once, On Sun09/06/20 at 1730, For 1 dose Given 09/06/2020 5:05 PM CDT 5 mg sodium chloride 0.9% flush 0.5-20 mL 0.5-20 mL, intra-catheter, Every 8 hours scheduled, First dose on Sun09/06/20 at 1515, L&D Pre-Delivery, Flush volume based on line type and size. sodium chloride 0.9% flush 0.5-20 mL 0.5-20 mL, intra-catheter, As needed, line care, Starting on Sun09/06/20 at 1432, L&D Pre-Delivery, Flush volume based on line type and size. Flush before and after each use. documented in this encounter Active and Recently Administered Medications Times are shown in CDT. Scheduled Medication Order 09/04/2020 09/05/2020 09/06/2020 Lactated Ringer's (LR) bolus 1,000 mL (COMPLETED) 1,000 mL, intravenous, Once, On Sun09/06/20 at 1530, For 1 dose 1506 (New Bag - Prov ider: Rachelle Elizabeth RN)1606 (Stopped - Provider: Rachelle Elizabeth RN) ondansetron (ZOFRAN) tablet 4 mg (COMPLETED) 4 mg, oral, Once, On Sun09/06/20 at 1730, For 1 dose 1656 (Given - Provid er: Rachelle Elizabeth RN) predniSONE (DELTASONE) tablet 5 mg (COMPLETED) 5 mg, oral, Once, On Sun09/06/20 at 1730, For 1 dose 1705 (Given - Provid er: Rachelle Elizabeth RN) sodium chloride 0.9% flush 0.5-20 mL 0.5-20 mL, intra-catheter, Every 8 hours scheduled, First dose on Sun09/06/20 at 1515, L&D Pre-Delivery, Flush volume based on line type and size. 1627 (Not Given - Pr ovider: Rachelle Elizabeth RN - Reason: IV Infusing) PRN Medication Order 09/04/2020 09/05/2020 09/06/2020 sodium chloride 0.9% flush 0.5-20 mL 0.5-20 mL, intra-catheter, As needed, line care, Starting on 09/06/20 at 1432, L&D Pre-Delivery, Flush volume based on line type and size. Flush before and after each use. documented in this encounter Orders Medications Ordered That Omer ht Not Have Been Administered Count Last Ordered Date First Ordered Date sodium chloride 0.9% flush 0.5-20 mL 2 08/26 Nursing Count Last Ordered Date First Orde red Date VITAL SIGNS 1 09/06/2020 documented in this encounter Care Teams Wireline Field Operator Relationship Specialty [place] [address] [address] [facility] [place] [address] PCP - General 07/04/19 [place] [id number] [address] [facility] [place] [address] 11/16/18 Ernie Shaw MD [address] [place] [address] [address] [place] [address] Medical Office Receptionist Obstetrics and Gynecology 06/10/20 documented as of this encounter
--- OUTSIDE RECORDS SUMMARY | 2024-02-24 20:07 | XMS_ITS | Encounter Summary ---
Author Organization [facility] eTelemetry of [facility] Address [address] [place] [address] Phone Care Team Providers Care Process Improvement Specialist Name Role Phone Huseyin Dangelo MD Unavailable [phone] Brian Mon MD Primary Care Provider + Ernie Shaw MD Unavailable [phone] Encounter Details Date Type Department Care Team (Late st Contact Info) Description 08/11/2020 Telephone [facility] Obstetrics and Gynecology [address] [place] [id number] No, Physician Social History Tobacco Use Types Packs/Day Years [...] * Telephone Encounter - Shanell Ribeiro - 08/11/2020 3:52 PM CDT Called patient to schedule she will call back once she has her work schedule * Telephone Encounter - Shanell Ribeiro - 08/11/2020 3:52 PM CDT ----- Message from Leti Ricks sent at 08/11/2020 3:38 PM CDT ----- Regarding: reschedule 08/26 appt Hi there Could someone please call this pt and reschedule the 08/26 COM visit to the following week. She does not need an ultrasound with the appt. She canceled her anatomy ultrasound for that day and will have with her primary OB. She does not have insurance any longer, cannot get Medicaid. Per Monica, $120 for the COM visit. Please let me know if you have any questions. Kellen documented in this encounter Plan of Treatment Not on file documented as of this encounter Visit Diagnoses Not on filedocumented in this encounter Care Teams Process Improvement Specialist Relationship Specialty [place] [id number] [address] [place] [id number] PCP - General 07/04/19 [place] [address] [address] [facility] [place] [address] 11/16/18 Ernie Shaw MD [address] [place] [address] Research Recruiter Obstetrics and Gynecology 06/10/20 documented as of this encounter
--- OUTSIDE RECORDS SUMMARY | 2024-02-24 20:07 | XMS_ITS | Encounter Summary ---
Author Organization [facility] Healthcare Address [address] [place] [address] Care Team Providers Care Parking Cashier Name Role Phone Huseyin Dangelo MD Unavailable [phone] Brian Mon MD Primary Care Provider + Ernie Shaw MD Unavailable [phone] Encounter Details Date Type Department Care Team (Latest Contact Info) Description 08/12/2020 Telephone Psychiatry Gary Hollingsworth MD [address] [facility] [address] [place], [place] [id number] Social History Tobacco Use Types Packs/Day Years [...] encounter Miscellaneous Notes * Telephone Encounter - Gary Hollingsworth MD - 08/12/2020 8:19 AM CDT Patient missed scheduled appointment. Attempted to contact over the phone, she picked up around 8:15 and was told we would call her for a conference virtual visit. Unfortunately we were not able to reach her over the phone after that. Will reschedule her for as early as possible. Gary Hollingsworth MD Painter Structural Steel, PGY-2 documented in this encounter Plan of Treatment Not on file documented as of this encounter Visit Diagnoses Not on filedocumented in this encounter Care Teams Parking Cashier Relationship Specialty [place] [address] [address] [facility] [address] [place] [address] PCP - General 07/04/19 [place] [address] [address] [facility] [address] [place] [address] 11/16/18 Ernie Shaw MD [address] [place] [address] [address] [place] [address] Mine Development Engineer Obstetrics and Gynecology 06/10/20 documented as of this encounter
--- OUTSIDE RECORDS SUMMARY | 2024-02-24 20:07 | XMS_ITS | Encounter Summary ---
Author Organization [facility] Address [address] [place] [address] Phone Care Team Providers Care Gift Shop Clerk Name Role Phone Huseyin Dangelo MD Unavailable [phone] Brian Mon MD Primary Care Provider + Ernie Shaw MD Unavailable [phone] Reason for Visit * Reason Onset Date Comments lower abdominal pain, exercise 09/14/2020 Encounter Details Date Type Department Care Team (Late st Contact Info) Description 09/14/2020 Telephone [facility] M[facility]- Medicine [address] [place] [address] Health 7th Floor [address] [place] [address] Fariba Chin RN lower abdominal pain, exercise Social History Tobacco Use Types Packs/Day Years [...] Telephone Encounter - Fariba Chin RN - 09/14/2020 3:39 PM CDT Carito called earlier today stating that she was feeling much better and all of her symtpoms weregone from her cold. She asked if she could exercise with a previa. I recommended that she hold off on exercise until her next appointment. She called back again this afternoon and asked if she why her next ultrasound was so far out and ifshe could move it up. She stated she thought she was supposed to be having ultrasounds every 4 weeks. I reviewed her chart and she is to have growth ultrasounds for marginal cord insertion starting at 24 weeks. She is scheduled correctly and I discussed this with her. She then stated that she keepshaving lower abdominal pain. 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 I recommended she be evaluated in the [facility]. She stated she didn't want to do that. I asked if she is staying well hydrated and if she has a belly band to wear while on her feet. She stated she feels she is hydrated and will wear the belly band starting tonight. I asked where the pain is and she stated above her pelvic bone in the center. I again recommended if she is having pain she should be evaluated. She asked if she could go to a hospital closer to her home. I told her that would be fine. She said it is more convenient. She said she would go if it got worse. I recommended she not wait. She verbalized understanding. documented in this encounter Plan of Treatment Not on file documented as of this encounter Visit Diagnoses Not on filedocumented in this encounter Additional Health Concerns Infection Onset Date Last Indicated Resolved Time COVID: Suspected 09/13/2020 01/13/2021 09/22/2020 9:40 AM CDT documented as of this encounter Care Teams Gift Shop Clerk Relationship Specialty [place] [address] [address] [facility] [address] [place] [address] PCP - General 07/04/19 [place] [address] [facility] [address] [place] [address] 11/16/18 Ernie Shaw MD [address] [place] [address] [address] [place] [address] Spring Intern Obstetrics and Gynecology 06/10/20 documented as of this encounter
--- OUTSIDE RECORDS SUMMARY | 2024-02-24 20:07 | XMS_ITS | Encounter Summary ---
Author Organization [facility] [employer] [facility] Address [address] [place] [address] Phone Care Team Providers Care Water Softener Servicer Name Role Phone Huseyin Dangelo MD Unavailable [phone] Brian Mon MD Primary Care Provider + Ernie Shaw MD Unavailable [phone] Reason for Visit * Reason Onset Date Comments questions about medications 08/13/2020 Encounter Details Date Type Department Care Team (Late st Contact Info) Description 08/13/2020 Telephone [facility] Maternal- Medicine [address] [place] [address] Health 7th Floor [address] [place] [address] Leti Ricks questions about medications Social History Tobacco Use Types Packs/Day [...] * Telephone Encounter - Leti Ricks - 08/13/2020 11:37 AM CDT Pt called to see if M would be willing to prescribe her Zoloft instead of her psychiatrist. Pt tells me that she is very unhappy with her current psychiatrist. Pt tells me that Dr Cruz talked with her yesterday and per pt was very mean to him on the phone and belittling him Pt reports that she feels she is stable on the Zoloft and does not need the psych services any longer anyway. I advised pt that she should speak with the [facility] providers about this at her upcoming visit on 08/26/20. She was agreeable to that plan. documented in this encounter Plan of Treatment Not on file documented as of this encounter Visit Diagnoses Not on filedocumented in this encounter Care Teams Water Softener Servicer Relationship Specialty [place] [address] [address] [facility] [place] [address] PCP - General 07/04/19 [place] [address] [address] [facility] [place] [address] 11/16/18 Ernie Shaw MD [address] [place] [address] [address] [facility] [place] [address] Rapid Transit Operator Obstetrics and Gynecology 06/10/20 documented as of this encounter
--- OUTSIDE RECORDS SUMMARY | 2024-02-24 20:07 | XMS_ITS | Encounter Summary ---
Author Organization [facility] Address [address] [place] [address] Phone Care Team Providers Care Installation Superintendent Name Role Phone Huseyin Dangelo MD Unavailable [phone] Brian Mon MD Primary Care Provider + Ernie Shaw MD Unavailable [phone] Reason for Visit * Reason Onset Date Comments questions about placenta 09/01/2020 Encounter Details Date Type Department Care Team (Late st Contact Info) Description 09/01/2020 Telephone [facility] Maternal- Medicine [address] [place] [address] Health 7th Floor [address] [place] [address] Leti Ricks questions about placenta Social History Tobacco Use Types Packs/Day Years [...] * Telephone Encounter - Leti Ricks - 09/01/2020 3:48 PM CDT Pt called requesting to speak with a physician about her placenta previa and what are the odds of it becoming accreta. Advised pt will reach out to one of the physicians to call her. documented in this encounter Plan of Treatment Not on file documented as of this encounter Visit Diagnoses Not on filedocumented in this encounter Care Teams Installation Superintendent Relationship Specialty [place] [address] [address] [facility] [address] [place] [address] PCP - General 07/04/19 [place] [address] [address] [facility] [address] [place] [address] 11/16/18 Ernie Shaw MD [address] [facility] [address] [place] [address] Lining Printer Obstetrics and Gynecology 06/10/20 documented as of this encounter
--- OUTSIDE RECORDS SUMMARY | 2024-02-24 20:07 | XMS_ITS | Encounter Summary ---
Author Organization [facility] [facility] Address [address] [place] [address] Phone Care Team Providers Care Servicing Manager Name Role Phone Huseyin Dangelo MD Unavailable [phone] Brian Mon MD Primary Care Provider + Ernie Shaw MD Unavailable [phone] Encounter Details Date Type Department Care Team (Late st Contact Info) Description 09/13/2020 Telephone [facility] Maternal- Medicine [address] [facility] Health 7th Floor [address] [place] [address] Fariba Chin RN Social History [...] Telephone Encounter - Fariba Chin RN - 09/13/2020 2:06 PM CDT Carito called stating she has another cold. Her symptoms include, cough, chest congestions, tickle in her throat and fatigue. She asked if she could take mucinex. I discussed the over the counter medications we feel comfortable and with and made sure she had the list. She said that she would try Tylenol Cold and Flu. I discussed COVID testing with Dr. Saavedra and she would like Carito to be tested. I will send [facility] to [facility]. She also stated she doesn't have an appointment for an ultrasound until 10/07/20. She states when she is at work and on her feet she feels discomfort and pressure in her lower abdomen. She states is feel like the baby is going to come out. She is also a previa. She denies vaginal bleeding, leaking of fluid and cramping. I explained that if she is having vaginal pressure and discomfort then she should be evalutated at the [facility]. She stated that is only when she is working. I again stated that if she is having vaginal pressure she should be evaluated. I explained that she could try a belly band for support while working as well. documented in this encounter Plan of Treatment Not on file documented as of this encounter Visit Diagnoses Not on filedocumented in this encounter Care Teams Servicing Manager Relationship Specialty [place] [address] [address] [place] [address] PCP - General 07/04/19 [place] [address] [address] [place] [address] 11/16/18 Ernie Shaw MD [address] [place] [address] [address] [place] [address] News Director Obstetrics and Gynecology 06/10/20 documented as of this encounter
--- OUTSIDE RECORDS SUMMARY | 2024-02-24 20:07 | XMS_ITS | Encounter Summary ---
Author Organization [facility] Healthcare Address [address] [place] [address] Care Team Providers Care Asthma Educator Name Role Phone Huseyin Dangelo MD Unavailable [phone] Brian Mon MD Primary Care Provider + Ernie Shaw MD Unavailable [phone] Reason for Visit * Reason Onset Date Comments Incoming Call 09/17/2020 Leaking o f Fluid Encounter Details Date Type Department Care Team (Late st Contact Info) Description 09/17/2020 Nurse Triage [address] [address] Mariza Mccoy RN Social History Tobacco Use [...] Telephone Encounter - Mariza Mccoy RN - 09/17/2020 7:03 AM CDT Reason for Disposition ??? Possible incontinence of urine, BUT patient uncertain Answer Assessment - Initial Assessment Questions 1. ONSET: When did the symptoms begin? 0630 2. CONTRACTIONS: Are you having any contractions? If yes, ask: Describe the contractions that you are having. (e.g., duration, frequency, regularity, severity) No 3. MANE: What date are you expecting to deliver? 01/27/21 4. OTHER SYMPTOMS: Do you have any other symptoms? (e.g., abdominal pain, vaginal bleeding, fever, hand/facial swelling) Denies Protocols used: - RUPTURE OF [id number] Pt called stating she was vomiting and felt a gush of fluid and was unsure if her water had broken.Pt states did not smell the fluid so was unsure if was urine. Denies any continued leaking at this time, states no pain and no bleeding. Care advice given and patient encouraged to come into the [facility] for evaluation if continued leaking noted. Pt verbalizes understanding. documented in this encounter Plan of Treatment Not on file documented as of this encounter Visit Diagnoses Not on filedocumented in this encounter Additional Health Concerns Infection Onset Date Last Indicated Resolved Time COVID: Suspected 09/13/2020 01/13/2021 09/22/2020 9:40 AM CDT documented as of this encounter Care Teams Asthma Educator Relationship Specialty [place] [address] [address] [place] [address] PCP - General 07/04/19 [place] [address] [address] [place] [address] 11/16/18 Ernie Shaw MD [address] [place] [address] [address] [place] [address] Saw Edge Fuser Circular Obstetrics and Gynecology 06/10/20 documented as of this encounter
--- OUTSIDE RECORDS SUMMARY | 2024-02-24 20:07 | XMS_ITS | Encounter Summary ---
Author Organization [facility] Healthcare Address [address] [place] [address] Care Team Providers Care Class C Truck Driver Name Role Phone Huseyin Dangelo MD Unavailable [phone] Brian Mon MD Primary Care Provider + Ernie Shaw MD Unavailable Reason for Visit * Reason Onset Date Comments Incoming Call 09/07/2020 Bright re d vaginal spotting and passed a little clot with placenta previa Encounter Details Date Type Department Care Team (Late st Contact Info) Description 09/07/2020 Nurse Triage [address] [address] Violette Ludwig RN Social History Tobacco Use [...] Telephone Encounter - Violette Ludwig RN - 09/07/2020 6:17 PM CDT 1747: Patient called stating she is 20 weeks with a placenta previa. She has had bright red vaginal spotting and has passed a little clot. She has not felt her baby move yet this . Patient states she was told to call if she passed a clot, and she is anxious about this . Patient advised [facility]. Reason for Disposition ? ? SPOTTING lasts > 48 hours or spotting happens more than once in a week Answer Assessment - Initial Assessment Questions 1. ONSET: When did this bleeding start? Just prior to 1747 on 09/07/2020 2. DESCRIPTION: Describe the bleeding that you are having. How much bleeding is there? - SPOTTING: spotting, or pinkish / brownish mucous discharge; does not fill panti-liner or pad - MILD: less than 1 pad / hour; less than patient's usual menstrual bleeding - MODERATE: 1-2 pads / hour; small-medium blood clots (e.g., pea, grape, small coin) - SEVERE: soaking 2 or more pads/hour for 2 or more hours; bleeding not contained by pads or continuous red blood from vagina; large blood clots (e.g., golf ball, large coin) Spotting with a little clot 3. ABDOMINAL PAIN SEVERITY: If present, ask: How bad is it? (e.g., Scale 1-10; mild, moderate, orsevere) - MILD (1-3): doesn't interfere with normal activities, abdomen soft and not tender to touch - MODERATE (4-7): interferes with normal activities or awakens from sleep, tender to touch - SEVERE (8-10): excruciating pain, doubled over, unable to do any normal activities N/A 4. : Do you know how many weeks or months you are? When was the first day of your last normal menstrual period? 19 weeks, 5 days 5. HEMODYNAMIC STATUS: Are you weak or feeling lightheaded? If so, ask: Can you stand and walk normally? Denies 6. OTHER SYMPTOMS: What other symptoms are you having with the bleeding? (e.g., passed tissue, vaginal discharge, fever, menstrual-type cramps) None noted Protocols used: - VAGINAL BLEEDING LESS THAN 20 WEEKS [id number] documented in this encounter Plan of Treatment Not on file documented as of this encounter Visit Diagnoses Not on filedocumented in this encounter Care Teams Class C Truck Driver Relationship Specialty [place] [address] [address] [place] [place] [address] PCP - General 07/04/19 [place] [address] [address] [place] [place] [address] 11/16/18 Ernie Shaw MD [address] [place] [address] [address] [place] [address] Stained Glass Glazier Helper Obstetrics and Gynecology 06/10/20 documented as of this encounter
--- OUTSIDE RECORDS SUMMARY | 2024-02-24 20:07 | XMS_ITS | Encounter Summary ---
Author Organization [facility] Address [address] [place] [address] Care Team Providers Care Burling And Joining Supervisor Name Role Phone Huseyin Dangelo MD Unavailable [phone] Brian Mon MD Primary Care Provider + Ernie Shaw MD Unavailable [phone] Encounter Details Date Type Department Care Team (Late st Contact Info) Description 09/13/2020 Orders Only [facility] Testing Site - [facility]. [address] [facility] [address] [place] [address] Kristin Saavedra MD [address] [facility] [phone] [place], [place] [id number] Exposure to SARS-associated coronavirus (Primary Dx) Social History Tobacco Use Types [...] a care home (including now)? No 01/01/2021 Latta Depression Scale Answer Date Recorded Latta Depression Scale Total 11 01/11/2021 The thought [...] as of this encounter Progress Notes * Lexi Segovia - 09/13/2020 2:18 PM CDT Order Specific Questions Question Answer Comment Testing types: Symptomatic with high risk condition ?? High risk condition: ?? Date of Symptom Onset 09/12/2020 ?? Testing site patient will be sent to: [facility], ordered to be faxed Date testing requested: 09/13/2020 ?? Testing: COVID/FLU ?? Does the patient currently work in a healthcare facility with direct patient contact? No ?? Is the patient a resident of a congregate care or living setting? No ?? Is the patient ? Yes ?? Please select the performing region: [facility] Medical Group ?? documented in this encounter Miscellaneous Notes * Addendum Note - Liset Del Real - 09/13/2020 2:18 PM CDTAddended by: LISET DEL REAL on: 01/14/2021 03:37 PM Modules accepted: Orders ATTENDANT documented in this encounter Plan of Treatment Not on file documented as of this encounter Visit Diagnoses Diagnosis Exposure to SARS-associated coronavirus- Primary documented in this encounter Additional Health Concerns Infection Onset Date Last Indicated Resolved Time COVID: Suspected 09/13/2020 01/13/2021 09/22/2020 9:40 AM CDT COVID: Suspected 09/24/2020 09/24/2020 09/24/2020 10:08 PM CDT COVID: Suspected 10/18/2020 10/18/2020 10/18/2020 2:26 PM CDT COVID: Suspected 11/16/2020 11/16/2020 11/16/2020 10:05 PM CDT COVID: Suspected 12/29/2020 12/29/2020 12/29/2020 1:30 PM CDT COVID: Suspected 01/14/2021 01/14/2021 01/28/2021 3:05 AM FUEL ATTENDANT documented as of this encounter Care Teams Burling And Joining Supervisor Relationship Specialty [place] [address] [address] [place] [address] PCP - General 07/04/19 [place] [address] [address] [place] [address] 11/16/18 Ernie Shaw MD [address] [place] [address] [address] [place] [address] Pan Operator Obstetrics and Gynecology 06/10/20 documented as of this encounter
--- OUTSIDE RECORDS SUMMARY | 2024-02-24 20:07 | XMS_ITS | Encounter Summary ---
Author Organization [facility] Healthcare Address [address] [place] [address] Care Team Providers Care Head Teacher Name Role Phone Huseyin Dangelo MD Unavailable [phone] Brian Mon MD Primary Care Provider + Ernie Shaw MD Unavailable [phone] Encounter Details Date Type Department Care Team (Late st Contact Info) Description 08/18/2020 8:05 PM CDT Lab [address] [id number] Sore throat Social History Tobacco Use Types [...] Miscellaneous Notes * Result Encounter Note - Jennifer Leon MA - 08/20/2020 8:37 AM CDT Left message for patient to call back to discuss negative COVID results. documented in this encounter Plan of Treatment Not on file documented as of this encounter Procedures Procedure Name Priority Date/Time Associated Diagnosis Comments THROAT CULTURE Routine 08/18/2020 4:40 PM CDT Sore throat documented in this encounter Results * Throat culture Throat (08/18/2020 4:40 PM CDT) Report Final Report: No growth of pathogens. ARPITA Comment:Testing performed by : [facility], [address] [place]., [address] Throat 08/18/2020 4:40 PM CDT 08/18/2020 9:55 PM CDT Narrative ARPITA POLLARD - 08/20/2020 12:20 AM CDT Testing performed by [facility] Microbiology Laboratory ([phone]). Dayna Cruz CORRECTION OFFICER LAB MICROBIOLOGY - GENERAL OR DERABLES Final Result [facility] [address] [address] Department [place] [address] documented in this encounter Visit Diagnoses Diagnosis Sore throat Acute pharyngitis documented in this encounter Care Teams Head Teacher Relationship Specialty [place] [address] [address] [facility] [address] [place] [address] PCP - General 07/04/19 [place] [address] [address] [facility] [address] [place] [address] 11/16/18 Ernie Shaw MD [address] [place] [address] [address] [place] [address] Cop Winder Obstetrics and Gynecology 06/10/20 documented as of this encounter
--- OUTSIDE RECORDS SUMMARY | 2024-02-24 20:07 | XMS_ITS | Encounter Summary ---
Author Organization [facility] Healthcare Address [address] [place] [address] Care Team Providers Care Research Subject Name Role Phone Huseyin Dangelo MD Unavailable [phone] Brian Mon MD Primary Care Provider + Ernie Shaw MD Unavailable [phone] Reason for Visit * Reason Comments Rupture of Membranes Encounter Details Date Type Department Care Team (Latest Contact Info) Description 09/15/2020 3:42 AM CDT - 09/15/2020 5:15 AM CDT Hospital Encounter [facility] [address] [place] [address] Aiden Mccoy MD [address] [place] [address] DR WISDOM B [facility] [address] [place] [address] Discharge Disposition: Discharge to home or self [...] as of this encounter Discharge Diagnoses Diagnosis Encounter for supervision of normal , unspecified, unspecified trimester - ENCOUNTER FOR SUPERVISION OF NORMAL , UNSPECIFIED, UNSPECIFIED TRIMESTER documented in this encounter Discharge Instructions * Attachments The following attachments cannot be sent through Care Everywhere. * at 19 to 22 Weeks (General Information) (Slovenian) documented in this encounter Medications at Time of Discharge aspirin 81 mg enteric coated tablet Take 81 mg by mouth daily 1 ferrous gluconate 324 mg (38 mg [...] Refills Last Filled Start Date End Date nitrofurantoin monohydrate (MACROBID) 100 mg capsule Take 1 capsule (100 mg total) by mouth 2 (two) times a day 14 capsule 09/15/2020 1 documented in this encounter Discharge Disposition Disposition Code Departure Means Destination Discharge to home or self care documented in this encounter Plan of Treatment Not on file documented as of this encounter Procedures Procedure Name Priority Date/Time Associated Diagnosis Comments PAMG-1 PROTEIN MARKER (ROM) STAT 09/15/2020 4:13 AM CDT URINALYSIS AND REFLEX TO MICROSCOPIC AND CULTURE STAT 09/15/2020 4:13 AM CDT URINALYSIS, MICROSCOPIC ONLY STAT 09/15/2020 4:13 AM CDT documented in this encounter Results * (ABNORMAL) Urinalysis, microscopic only (09/15/2020 4:13 AM CDT) WBC, ur 6-10(A) 0 - 5 /HPF ARPITA MARTIN ([place]) RBC, ur 0-2 0 - 2 /HPF ARPITA MARTIN ([place]) Epithelial cells, squamous, ur 1-5 0 - 5 /HPF [facility] ([place]) Bacteria, ur 2+(A) ARPITA MARTIN ([place]) Mucous, ur Present(A) ARPITA [facility] ([place]) Culture Reflex Comment Reflex conditions for urine culture (WBC >10) not met. ARPITA MARTIN ([place]) Urine, clean voided 09/15/2020 4:13 AM CDT 09/15/2020 4:16 AM CDT us Aiden Mccoy MD LAB URINE ORDERABLES F inal Result Performing Organization Address [facility]/ZIP Co de Phone Number ARPITA MARTIN ([place]) 1 [facility] Department [place] [employer] [place] [address] * (ABNORMAL) Urinalysis reflex to microscopic and culture Urine, clean voided (09/15/2020 4:13 AM CDT) Color, ur Yellow Yellow [facility] ([place]) Clarity, ur Turbid(A) Clear [facility] ([place]) Specific gravity, ur 1.032(H) 1.010 - 1.025 [facility] ([place]) pH, urine 6.0 CERNER [...] performed. [facility] ([place]) Urine, clean voided 09/15/2020 4:13 AM CDT 09/15/2020 4:16 AM CDT Narrative [facility] ([place]) - 09/15/2020 4:21 AM CDT ?? Urine pH is affected by diet, medications, systemic acid-base disturbances, and renal tubular function. ??pH may affect urinary stone formation. ??For example, urine pH below 6.0 may help reduce the tendency for calcium phosphate stones and pH greater than 6.0 may reduce the tendency for uric acid stone formation. Source: [employer]. Last revised 03-08-2017 us Aiden Mccoy MD LAB MICROBIOLOGY - GEN ERAL ORDERABLES Final Result Performing Organization Address City/[facility]/ZIP Co de Phone Number ARPITA MARTIN ([place]) 1 [facility] Department [place] [employer] [place] [address] * ROM Plus (IGFBP-1/AFP) (09/15/2020 4:13 AM CDT) IFG Binding Protein-1 / AFP Negative ARPITA VERONICA ([place]) Swab 09/15/2020 4:13 AM CDT 09/15/2020 4:16 AM CDT Aiden Mccoy MD LAB BODY FLUIDS AND ST OOLS ORDERABLES Final Result ARPITA VERONICA ([place]) 1 [facility] [place] [address] documented in this encounter Visit Diagnoses Not on filedocumented in this encounter Discontinued Medications Medication Sig Discontinue Reason Start Date End Da te triamcinolone (KENALOG) 0.1 % cream Apply topically 2 (two) times a day Other 01/31/2020 09/15/2020 meclizine (ANTIVERT) 25 mg tabletIndications:Dizzin ess Take 1 tablet (25 mg total) by mouth 3 (three) times a day as needed for dizziness Other 02/03/2020 09/15/2020 ipratropium (ATROVENT) 0.03 % nasal spray INSTILL 1 SPRAY IN EACH NOSTRIL TWICE DAILY Other 01/28/2020 09/15/2020 hydrocortisone (CORTEF) 5 mg tabletIndications:Adrena l Cortical Insufficiency Take 2 tabs (10 mg) in morning and 1 tab (5 mg) in afternoon Other 05/31/2020 09/15/2020 ergocalciferol (VITAMIN D) 50,000 unit capsule TAKE 1 CAPSULE BY MOUTH ONE TIME PER WEEK Other 06/21/2019 09/15/2020 bromocriptine (PARLODEL) 2.5 mg tablet Take 2.5 mg by mouth 2 (two) times a day Other 05/12/2020 09/15/2020 belimumab (Benlysta) auto-injector Inject 1 mL (200 mg total) under the skin every 7 days Other 07/23/2019 09/15/2020 azaTHIOprine (IMURAN) 50 mg tablet Take 1 tablet (50 mg total) by mouth daily Other 06/14/2020 09/15/2020 Ventolin HFA 90 mcg/actuation inhaler INHALE TWO PUFFS BY MOUTH EVERY FOUR HOURS NEEDED FOR WHEEZING/COUGH Other 12/28/2019 09/15/2020 documented as of this encounter Additional Health Concerns Infection Onset Date Last Indicated Resolved Time COVID: Suspected 09/13/2020 01/13/2021 09/22/2020 9:40 AM CDT documented as of this encounter Care Teams Research Subject Relationship Specialty [place] [address] [address] [place] [address] PCP - General 07/04/19 [place] [address] [address] [facility] [place] [address] 11/16/18 Ernie Shaw MD [address] [place] [address] DR AUGUST[address] [place] [address] Engine Designer Obstetrics and Gynecology 06/10/20 documented as of this encounter
--- OUTSIDE RECORDS SUMMARY | 2024-02-24 20:07 | XMS_ITS | Encounter Summary ---
Author Organization [facility] Healthcare Address [address] [place] [address] Care Team Providers Care Telecommunications Manager Name Role Phone Huseyin Dangelo MD Unavailable [phone] Brian Mon MD Primary Care Provider + Ernie Shaw MD Unavailable [phone] Reason for Referral * Diagnostic Imaging (Routine) - Closed Specialty Diagnoses / Procedures Referred By Jud t Referred To Contact Diagnoses Supervision of high-risk , unspecified trimester Miscarriage Procedures US Ob Detail Anatomy Single Or First Gestation Lydia Juarez MD [address] [place] [address] [phone] [place] [address] Phone: tel: fax: [facility] (All Locations) Referral ID Status Reason Start Date Expiration Date Visits Re quested Visits Authorized [id number] Closed 07/08/2020 02/25/2021 1 1 Reason for Visit * Diagnostic Imaging (Routine) - Closed Specialty Diagnoses / Procedures Referred By Jud freeman Referred To Contact Diagnoses Supervision of high-risk , unspecified trimester Miscarriage Procedures US Ob Detail Anatomy Single Or First Gestation Lydia Juarez MD [address] [facility] [phone] [place] [address] Phone: tel: fax: [facility] (All Locations) Referral ID Status Reason Start Date Expiration Date Visits Re quested Visits Authorized [id number] Closed 07/08/2020 02/25/2021 1 1 Encounter Details Date Type Department Care Team (Latest Contact Info) Description 08/26/2020 12:01 PM CDT - 08/26/2020 11:59 PM CDT Hospital Encounter [facility] [address] [facility], 7th Floor, [address] [facility] [place] [address] Lydia Juarez MD [address] [phone] [place], [place] [id number] Supervision of high-risk , unspecified trimester; Miscarriage Discharge Disposition: Discharge to home or self [...] this encounter Medications at Time of Discharge bisacodyL (DULCOLAX) 10 mg suppository Insert 10 mg into the rectum daily as needed 08/24/2020 1 docusate sodium (COLACE) 100 mg capsule Take 100 mg by mouth 2 (two) times a day 08/24/2020 1 lactulose solution 10 gram/15mL Take 20 g by mouth 2 (two) times a day 08/25/2020 1 aspirin 81 mg enteric coated tablet [...] Priority Date/Time Associated Diagnosis Comments US OB DETAIL ANATOMY SINGLE OR FIRST GESTATION Schedule Routine, Read Routine (OP Routine) 08/26/2020 12:01 PM CDT Supervision of high-risk , unspecified trimester Miscarriage documented in this encounter Results * US Ob Detail Anatomy Single Or First Gestation (08/26/2020 12:01 PM CDT) Fetus# Fetus1 VIEWPOINT Placenta Details anterior, Previa-yes, no placental masses [place] Estimated Weight 247 g&grams [place] Presentation Variable [place] Anatomical Region Laterality Modality Body N/A Ultrasound 08/26/2020 12:2 5 PM CDT us Lydia Juarez MD IMG OB US PROCEDU RES Final Result documented in this encounter Visit Diagnoses Diagnosis Supervision of high-risk , unspecified trimester Miscarriage Unspecified spontaneous without mention of complication documented in this encounter Care Teams Telecommunications Manager Relationship Specialty [place] [address] [address] [place] [address] PCP - General 07/04/19 [place] [address] [address] [facility] [place] [address] 11/16/18 Ernie Shaw MD [address] [place] [address] [address] [place] [address] Packaging Sales Obstetrics and Gynecology 06/10/20 documented as of this encounter
--- OUTSIDE RECORDS SUMMARY | 2024-02-24 20:07 | XMS_ITS | Encounter Summary ---
Author Organization [facility] [facility] Address [address] [place] [address] Phone Care Team Providers Care Wagon Washer Name Role Phone Huseyin Dangelo MD Unavailable [phone] Brian Mon MD Primary Care Provider + Ernie Shaw MD Unavailable [phone] Encounter Details Date Type Department Care Team (Late st Contact Info) Description 08/20/2020 Telephone [facility] Psychiatry [address] [facility] 2nd Floor [address] [place] [address] Courtney June BS Social History [...] Telephone Encounter - Courtney June BS - 08/20/2020 11:50 AM CDT Behavioral Health Service ATTEMPTED Phone Contact By SAMSON Benitez to Carito [place] 1990 Objective of Call: Follow up on initial referral Outcome:Left Voicemail with standard instructions to call [facility] Office at [phone] Notes, if applicable: Coordinator left a voicemail for pt to return call. SAMSON Benitez Behavioral Health Service [facility] Department of Psychiatry [phone] documented in this encounter Plan of Treatment Not on file documented as of this encounter Visit Diagnoses Not on filedocumented in this encounter Care Teams Wagon Washer Relationship Specialty [place] [address] [address] [place] [address] PCP - General 07/04/19 [place] [address] [address] [facility] [place] [address] 11/16/18 Ernie Shaw MD [address] [facility] [address] [place] [address] Assembly Mechanic Obstetrics and Gynecology 06/10/20 documented as of this encounter
--- OUTSIDE RECORDS SUMMARY | 2024-02-24 20:07 | XMS_ITS | Encounter Summary ---
Author Organization [facility] Address [address] [place] [address] Phone Care Team Providers Care Landfill Gas Collection System Operator Name Role Phone Huseyin Dangelo MD Unavailable [phone] Brian Mon MD Primary Care Provider + Ernie Shaw MD Unavailable [phone] Encounter Details Date Type Department Care Team (Late st Contact Info) Description 08/13/2020 Telephone [facility] Endocrinology Metabolism and Lipid [address] [facility] [address] [address] Tran Lauren RMA Social History Tobacco Use [...] Telephone Encounter - Tran Lauren RMA - 08/13/2020 10:39 AM CDT Pt called stating that she was on her way to work and got light headed. Pt stated that she got homeand took and extra 5mg of prednisone. She stated that the [facility] office told her to contact our officeabout this. Spoke with Dr. Fernandez and she stated that she is to follow sick day protocol and she is to take her bp when she gets light headed and to follow up with with the [facility] or facility that has labor and delivery as [facility] documented as their recommendation. Called and notified the pt and she stated that she understood and scheduled a follow up. documented in this encounter Plan of Treatment Not on file documented as of this encounter Visit Diagnoses Not on filedocumented in this encounter Care Teams Landfill Gas Collection System Operator Relationship Specialty [place] [address] [address] [place] [address] PCP - General 07/04/19 [place] [address] [address] [place] [address] 11/16/18 Ernie Shaw MD [address] [place] [address] [address] AUG[address]INE [facility] [place] [address] Pediatric Hospitalist Obstetrics and Gynecology 06/10/20 documented as of this encounter
--- OUTSIDE RECORDS SUMMARY | 2024-02-24 20:07 | XMS_ITS | Encounter Summary ---
Author Organization [facility] Healthcare Address [address] [place] [address] Care Team Providers Care Event Management Consultant Name Role Phone Huseyin Dangelo MD Unavailable [phone] Brian Mon MD Primary Care Provider + Ernie Shaw MD Unavailable Reason for Visit * Reason Onset Date Comments Incoming Call 09/18/2020 Encounter Details Date Type Department Care Team (Late st Contact Info) Description 09/18/2020 Nurse Triage [address] [address] Saúl Lo, PRO Social History Tobacco Use [...] Telephone Encounter - Saúl Lo RN - 09/18/2020 10:47 AM CDT Pt called with c/o having little pains with what she thinks might be contractions. States she really doesn't know how contractions feel. Pain comes and goes. Not really painful. Just feels a littletwinge. Pain is 1-2 inches above umbilicus and on her left side of abd. Pain started 1 hour ago. Pt informed that she can stay home and monitor. Stay hydrated by drinking lots of fluids/water. May take 2 extra-strength tylenols if pain gets more painful. Call back if symptoms worsens or have any questions. Pt verbalizes understanding and states ok. Reason for Disposition ??? Mild abdominal pain Protocols used: - ABDOMINAL PAIN GREATER THAN 20 WEEKS [id number] documented in this encounter Plan of Treatment Not on file documented as of this encounter Visit Diagnoses Not on filedocumented in this encounter Additional Health Concerns Infection Onset Date Last Indicated Resolved Time COVID: Suspected 09/13/2020 01/13/2021 09/22/2020 9:40 AM CDT documented as of this encounter Care Teams Event Management Consultant Relationship Specialty [place] [address] [address] [facility] [place] [address] PCP - General 07/04/19 [place] [address] [address] [facility] [place] [address] 11/16/18 Ernie Shaw MD [address] [facility] [address] [place] [address] Pipefitter Obstetrics and Gynecology 06/10/20 documented as of this encounter
--- OUTSIDE RECORDS SUMMARY | 2024-02-24 20:07 | XMS_ITS | Encounter Summary ---
Author Organization [facility] Address [address] [place] [address] Phone Care Team Providers Care News Library Director Name Role Phone Huseyin Dangelo MD Unavailable [phone] Brian Mon MD Primary Care Provider + Ernie Shaw MD Unavailable [phone] Encounter Details Date Type Department Care Team (Late st Contact Info) Description 08/13/2020 Telephone [facility] Obstetrics and Gynecology [address] [place] [address] Minal Brady Social History Tobacco Use Types Packs/Day Years [...] encounter Miscellaneous Notes * Telephone Encounter - Minal Brady - 08/13/2020 11:37 AM CDT Monica called to confirm with [facility] that patient has not had any lapse of coverage. Call placed to patient and voicemail left RE: adding her for an US on 08/26 and reminder of her $75 copay. Patient returned call: informed her of the US appointment on 08/26 @ 12:30pm and [facility] appointment after. Reminded her of the $75 copay for the OB appt. No questions from patient. * Telephone Encounter - Minal Brady - 08/13/2020 10:07 AM CDT Patient called to inform that she has [facility] insurance still. Pulled plan up on [facility] website and does show active from 04/26-02/25. Reached out to Monica, who stated she would call [facility] to see if it is a cobra plan or if there was a break in coverage and to see if she met her deductible. Monica will inform when she finds out from [facility]. Tentatively scheduled US prior to appt on 08/26 @ 1230pm. Patient will need to be notified of appt and if she has any financial obligations to pay at time of visit. documented in this encounter Plan of Treatment Not on file documented as of this encounter Visit Diagnoses Not on filedocumented in this encounter Care Teams News Library Director Relationship Specialty [place] [address] [address] [place] [address] PCP - General 07/04/19 [place] [address] [address] [place] [address] 11/16/18 Ernie Shaw MD [address] [place] [address] DR AUG[address] [place] [address] [employer] Combination Teacher Obstetrics and Gynecology 06/10/20 documented as of this encounter
--- OUTSIDE RECORDS SUMMARY | 2024-02-24 20:07 | XMS_ITS | Encounter Summary ---
Author Organization [facility] Address [address] [place] [address] Phone Care Team Providers Care Transitional Studies Instructor Name Role Phone Huseyin Dangelo MD Unavailable [phone] Brian Mon MD Primary Care Provider + Ernie Shaw MD Unavailable [phone] Encounter Details Date Type Department Care Team (Late st Contact Info) Description 08/12/2020 8:00 AM CDT Telemedicine [facility] Department of Psychiatry [address] [facility] [address] [place] [address] Rianna Cruz MD [address] [facility] [address] [place] [address] Generalized anxiety disorder (Primary Dx); Attention deficit hyperactivity disorder (ADHD), combined type Social History Tobacco Use Types Packs/Day [...] on file documented as of this encounter Patient Instructions * Patient Instructions* Rianna Cruz MD - 08/12/2020 8:00 AM CDT Please continue Zoloft 75mg daily with food Please let us know if your symptoms worsen. Please call 911 and go to an ER if you are in danger ofhurting yourself or others. Please follow-up as soon as possible documented in this encounter Ordered Prescriptions Prescription Sig Dispense Quantity Refills Last Filled Start Date End Date sertraline (ZOLOFT) 50 mg tablet Take 1.5 tablets (75 mg total) by mouth daily 45 tablet 2 08/12/2020 documented in this encounter Progress Notes * Rianna Cruz MD - 08/12/2020 8:00 AM CDT Patient did not attend Zoom visit. Tried to get her on the phone but was unable to. Please call back and reschedule. documented in this encounter Plan of Treatment Not on file documented as of this encounter Visit Diagnoses Diagnosis Generalized anxiety disorder- Primary Attention deficit hyperactivity disorder (ADHD), combined type documented in this encounter Discontinued Medications Medication Sig Discontinue Reason Start Date End Da te sertraline (ZOLOFT) 50 mg tablet Take 1.5 tablets (75 mg total) by mouth daily Reorder 07/15/2020 08/12/2020 documented as of this encounter Care Teams Transitional Studies Instructor Relationship Specialty [place] [address] [address] [place] [address] PCP - General 07/04/19 [place] [address] [address] [place] [address] 11/16/18 Ernie Shaw MD [address] [facility] [address] [place] [address] [place] Stayer Machine Operator Obstetrics and Gynecology 06/10/20 documented as of this encounter
--- OUTSIDE RECORDS SUMMARY | 2024-02-24 20:07 | XMS_ITS | Encounter Summary ---
Author Organization [facility] [facility] Address [address] [place] [address] Phone Care Team Providers Care Frame Hand Name Role Phone Huseyin Dangelo MD Unavailable [phone] Brian Mon MD Primary Care Provider + Ernie Shaw MD Unavailable Reason for Visit * Reason Onset Date Comments Dizziness 08/13/2020 Encounter Details Date Type Department Care Team (Late st Contact Info) Description 08/13/2020 Telephone [facility] Maternal- Medicine [address] [place] [address] Health 7th Floor [address] [place] [address] Leti Ricks Dizziness Social History Tobacco Use Types Packs/Day [...] Telephone Encounter - Leti Ricks - 08/13/2020 9:42 AM CDT Pt called to report that she has been feeling dizzy and lightheaded the last couple of weeks. She tells me that is was so bad yesterday while driving that she could not go to work and had to turn around. Her face is feeling very hot. She reports that her bp has been very high, like 140's I asked for specific numbers and she advised yesterday 142/78 and 140/76. Denies any swelling or headache. Pt states she is not dehydrated and eats a very healthy diet and did not think that was contributing to her dizziness. I advised pt that she should be evaluated either here in the [facility] or at her nearest facility with labor and delivery facilities. Pt also advised me that her insurance coverage is actually still active and she wishes to reschedule her anatomy ultrasound that she cancelled here earlier this week. Advised pt that I would have my partner from the scheduling hub reach out to her to verify insurance and find a spot to reschedule. documented in this encounter Plan of Treatment Not on file documented as of this encounter Visit Diagnoses Not on filedocumented in this encounter Care Teams Frame Hand Relationship Specialty [place] [address] [address] [place] [address] PCP - General 07/04/19 [place] [address] [address] [place] [address] 11/16/18 Ernie Shaw MD [address] [place] [address] [address] [place] [address] Import Manager Obstetrics and Gynecology 06/10/20 documented as of this encounter
--- OUTSIDE RECORDS SUMMARY | 2024-02-24 20:07 | XMS_ITS | Encounter Summary ---
Author Organization [facility]Tr[employer] of [facility] Address [address] [place] [address] Phone Care Team Providers Care Breaker Layer Name Role Phone Huseyin Dangelo MD Unavailable [phone] Brian Mon MD Primary Care Provider + Ernie Shaw MD Unavailable [phone] Reason for Visit * Reason Onset Date Comments glucose test 08/26/2020 Encounter Details Date Type Department Care Team (Late st Contact Info) Description 08/26/[address] [facility] Maternal- Medicine [address] [place] [address] Health 7th Floor [address] [place] [address] Leti Ricks glucose test Social History Tobacco Use Types Packs/Day Years [...] * Telephone Encounter - Leti Ricks - 08/26/2020 10:39 AM CDT Pt called to report that she thought she was supposed to have a 1 hour gtt today and there is not an order. Discussed the need for the test at [address] Shukla, she advised that she prefers pt have done at 24 weeks but ok to do today if pt feels strongly about it. Pt reports she had a normal A1C recently so she will wait until 24 weeks. documented in this encounter Plan of Treatment Not on file documented as of this encounter Visit Diagnoses Not on filedocumented in this encounter Care Teams Breaker Layer Relationship Specialty [place] [address] [address] [place] [address] PCP - General 07/04/19 [place] [address] [address] [place] [address] 11/16/18 Ernie Shaw MD [address] [place] [address] [address] A[address]INE [facility] [place] [address] Commercial Banker Obstetrics and Gynecology 06/10/20 documented as of this encounter
--- OUTSIDE RECORDS SUMMARY | 2024-02-24 20:07 | XMS_ITS | Encounter Summary ---
Author Organization [facility] [employer] [facility] Address [address] [place] [address] Phone Care Team Providers Care Print Line Operator Name Role Phone Huseyin Dangelo MD Unavailable Brian Mon MD Primary Care Provider + Ernie Shaw MD Unavailable [phone] Encounter Details Date Type Department Care Team (Late st Contact Info) Description 08/13/2020 Telephone [facility] Psychiatry [address] [facility] 2nd Floor [address] [place] [address] Courtney June BS Social History [...] Telephone Encounter - Courtney June BS - 08/13/2020 1:25 PM CDT Behavioral Health Service SUCCESSFUL Phone Contact By SAMSON Benitez to Carito [place] 1990 Objective of Call: Other:pt care Outcome:Successful Contact Notes, if applicable: Coordinator received a voicemail from pt. Coordinator returned pts call. Coordinator spoke with pt regarding issue surrounding pt care. Coordinator advised pt that situation would be discussed in detail with immediate brick chimney supervisor and pt would be called back with a resolution some time next week. SAMSON Benitez Behavioral Health Service [facility] Department of Psychiatry [phone] documented in this encounter Plan of Treatment Not on file documented as of this encounter Visit Diagnoses Not on filedocumented in this encounter Care Teams Print Line Operator Relationship Specialty [place] [address] [address] [place] [address] PCP - General 07/04/19 [place] [address] [address] [place] [address] 11/16/18 Ernie Shaw MD [address] [place] [address] [address] [place] [address] Tree Planter Obstetrics and Gynecology 06/10/20 documented as of this encounter
--- OUTSIDE RECORDS SUMMARY | 2024-02-24 20:07 | XMS_ITS | Encounter Summary ---
Author Organization [facility] [employer] of [facility] Address [address] [place] [address] Phone Care Team Providers Care Soaking Pit Operator Name Role Phone Huseyin Dangelo MD Unavailable [phone] Brian Mon MD Primary Care Provider + Ernie Shaw MD Unavailable [phone] Reason for Visit * Reason Onset Date Comments ultrasound request and JCARLOS request 09/21/2020 Encounter Details Date Type Department Care Team (Late st Contact Info) Description 09/21/2020 Telephone [facility] Maternal- Medicine [address] [place] [address] Health 7th Floor [address] [place] [address] Anh Marin RN ultrasound request and JCARLOS request Social History Tobacco Use Types Packs/Day Years [...] Telephone Encounter - Anh Marin RN - 09/21/2020 3:35 PM CDT Pt. Calling requesting US to be faxed to her pOB, Dr. Sheldon Delgado @ [phone]. Pt. Also notified us that Dr. Delgado has sent referral to [facility] for JCARLOS. Pt. States she will call back to cancel appt. With us once she has been seen by their MFM team. documented in this encounter Plan of Treatment Not on file documented as of this encounter Visit Diagnoses Not on filedocumented in this encounter Additional Health Concerns Infection Onset Date Last Indicated Resolved Time COVID: Suspected 09/13/2020 01/13/2021 09/22/2020 9:40 AM CDT documented as of this encounter Care Teams Soaking Pit Operator Relationship Specialty [place] [address] [address] [place] [address] PCP - General 07/04/19 [place] [address] [address] [place] [address] 11/16/18 Ernie Shaw MD [address] [place] [address] [address] [place] [address] Switchboard Operator Helper Obstetrics and Gynecology 06/10/20 documented as of this encounter
--- OUTSIDE RECORDS SUMMARY | 2024-02-24 20:08 | XMS_ITS | Encounter Summary ---
Author Organization [facility] [email or web address] of [facility] Address [address] [place] [address] Phone Care Team Providers Care Demolition Engineer Name Role Phone Huseyin Dangelo MD Unavailable [phone] Brian Mon MD Primary Care Provider + Ernie Shaw MD Unavailable [phone] Encounter Details Date Type Department Care Team (Late st Contact Info) Description 06/24/2020 Telephone [facility] Psychiatry [facility] [place] [address] Remedios Nj Social History Tobacco [...] * Telephone Encounter - Remedios Nj - 06/24/2020 10:13 AM CDT ----- Message from Remedios Nj sent at 06/24/2020 10:09 AM CDT ----- Regarding: RE: New pt appt Dr. Garcia's new patient slots are Sunday at 1:00 pm & 2:00 pm. Both times are available on Friday 07/14. Thank you, Remedios ----- Message ----- From: Lois Hyde LCSW Sent: 06/24/2020 9:57 AM CDT To: Remedios Nj Subject: RE: New pt appt Hi again, Just checking to see if Radha sees pts after noon on . I can't recall her new hours. THANK YOU! ----- Message ----- From: Remedios Nj Sent: 06/23/2020 4:35 PM CDT To: Lois Hyde LCSW Subject: RE: New pt appt There are no later times available on 07/01. Dr. Cruz's latest slot is at 11:15 am. That time is available on 07/08. Thank you, Remedios ----- Message ----- From: Lois Hyde LCSW Sent: 06/23/2020 3:55 PM CDT To: Remedios Nj Subject: RE: New pt appt Thanks Remedios! I just let the pt know and she is asking if there is anything available later in the day, after 12? ----- Message ----- From: Remedios Nj Sent: 06/23/2020 10:58 AM CDT To: Lois Hyde LCSW, [facility] Sched Pool Subject: RE: New pt appt Patient's appointment is scheduled with Dr Brown on 07/01/20 at 10:30 am and instructions have been sent. Thank you! Scheduling Team ----- Message ----- From: Lois Hyde LCSW Sent: 06/22/2020 12:51 PM CDT To: [facility] Sched Pool Subject: New pt appt Hello, Can we please schedule this pt for the next available with Dr. Garcia or Nancy? Thanks! Lois documented in this encounter Plan of Treatment Not on file documented as of this encounter Visit Diagnoses Not on filedocumented in this encounter Care Teams Demolition Engineer Relationship Specialty [place] [address] [address] [place] [address] PCP - General 07/04/19 [place] [address] [address] [place] [address] 11/16/18 Ernie Shaw MD [address] [place] [address] [address] [place] [address] Filling Station Laborer Obstetrics and Gynecology 06/10/20 documented as of this encounter
--- OUTSIDE RECORDS SUMMARY | 2024-02-24 20:08 | XMS_ITS | Encounter Summary ---
Author Organization [facility] Healthcare Address [address] [place] [address] Care Team Providers Care Cracker Dough Mixer Name Role Phone Huseyin Dangelo MD Unavailable [phone] Brian Mon MD Primary Care Provider + Ernie Shaw MD Unavailable [phone] Reason for Visit * Reason Onset Date Comments Outgoing Call 06/24/2020 post [facility] visit f/u Encounter Details Date Type Department Care Team (Late st Contact Info) Description 06/24/[address] [address] Amy Rodriges RN Outgoing Call (post [facility] visit f/u) Social History Tobacco [...] Telephone Encounter - Amy Rodriges RN - 06/24/2020 11:20 AM CDT Contacted patient for post [facility] visit f/u. Patient states she does not feel better and is on the other line with MFM. documented in this encounter Plan of Treatment Not on file documented as of this encounter Visit Diagnoses Not on filedocumented in this encounter Care Teams Cracker Dough Mixer Relationship Specialty [place] [address] [address] [place] [address] PCP - General 07/04/19 [place] [address] [address] [place] [address] 11/16/18 Ernie Shaw MD [address] [place] [address] [address] [place] [address] Auto Mechanic Supervisor Obstetrics and Gynecology 06/10/20 documented as of this encounter
--- OUTSIDE RECORDS SUMMARY | 2024-02-24 20:08 | XMS_ITS | Encounter Summary ---
Author Organization [facility] [employer] of [facility] Address [address] [place] [address] Phone Care Team Providers Care Electrical Engineering Professor Name Role Phone Huseyin Dangelo MD Unavailable [phone] Brian Mon MD Primary Care Provider + Ernie Shaw MD Unavailable [phone] Reason for Visit * Reason Onset Date Comments [place] results 07/14/2020 Encounter Details Date Type Department Care Team (Late st Contact Info) Description 07/14/2020 Telephone [facility] Maternal- Medicine [address] [place] [address] Health 7th Floor [address] [place] [address] Leti Ricks results Social History Tobacco Use Types Packs/Day Years [...] * Telephone Encounter - Leti Ricks - 07/14/2020 1:42 PM CDT Pt advised of [place] results and gender. documented in this encounter Plan of Treatment Not on file documented as of this encounter Visit Diagnoses Not on filedocumented in this encounter Care Teams Electrical Engineering Professor Relationship Specialty [place] [address] [address] [place] [address] PCP - General 07/04/19 [place] [address] [address] [facility] [place] [address] 11/16/18 Ernie Shaw MD [address] [place] [address] [address] [place] [address] Consumer Experience Consultant Obstetrics and Gynecology 06/10/20 documented as of this encounter
--- OUTSIDE RECORDS SUMMARY | 2024-02-24 20:08 | XMS_ITS | Encounter Summary ---
Author Organization [facility] Healthcare Address [address] [place] [address] Care Team Providers Care Sales Compensation Analyst Name Role Phone Huseyin Dangelo MD Unavailable [phone] Brian Mon MD Primary Care Provider + Ernie Shaw MD Unavailable [phone] Reason for Visit * Reason Onset Date Comments Outgoing Call 08/07/2020 Follow up [facility] Encounter Details Date Type Department Care Team (Late st Contact Info) Description 08/07/[address] [address] Fallon Callahan RN Outgoing Call (Follow up [facility]) Social History Tobacco Use Types Packs/Day Years [...] Telephone Encounter - Fallon Callahan RN - 08/07/2020 11:39 AM CDT Attempted to contact patient for follow-up after discharge. Patient did not answer, no ID, no voicemail left for return phone call. documented in this encounter Plan of Treatment Not on file documented as of this encounter Visit Diagnoses Not on filedocumented in this encounter Care Teams Sales Compensation Analyst Relationship Specialty [place] [address] [address] [address] PCP - General 07/04/19 [place] [address] [address] [address] 11/16/18 Ernie Shaw MD [address] [place] [address] [address] [place] [address] Tape Recorder Repairer Obstetrics and Gynecology 06/10/20 documented as of this encounter
--- OUTSIDE RECORDS SUMMARY | 2024-02-24 20:08 | XMS_ITS | Encounter Summary ---
Author Organization [facility] [employer] of [facility] Address [address] [place] [address] Phone Care Team Providers Care Superintendent Recreation Name Role Phone Huseyin Dangelo MD Unavailable [phone] Brian Mon MD Primary Care Provider + Ernie Shaw MD Unavailable [phone] Reason for Visit * Reason Onset Date Comments Scheduling Appointments 07/15/2020 Encounter Details Date Type Department Care Team (Late st Contact Info) Description 07/15/2020 Telephone [address] [place] [address] Kelsey Saleh Scheduling Appointments Social History Tobacco Use Types Packs/Day Years [...] encounter Miscellaneous Notes * Telephone Encounter - Kelsey Saleh - 07/15/2020 3:46 PM CDT ----- Message from Rianna Cruz MD sent at 07/15/2020 3:10 PM CDT ----- When you call to schedule in 4 weeks please offer in-person on 08/11, thanks! documented in this encounter Plan of Treatment Not on file documented as of this encounter Visit Diagnoses Not on filedocumented in this encounter Care Teams Superintendent Recreation Relationship Specialty [place] [address] [address] [facility] [address] [place] [address] PCP - General 07/04/19 [place] [address] [address] [facility] [address] [place] [address] 11/16/18 Ernie Shaw MD [address] [place] [address] [address] [place] [address] Closet Builder Obstetrics and Gynecology 06/10/20 documented as of this encounter
--- OUTSIDE RECORDS SUMMARY | 2024-02-24 20:08 | XMS_ITS | Encounter Summary ---
Author Organization [facility] [employer] of [facility] Address [address] [place] [address] Phone Care Team Providers Care Line Erector Name Role Phone Huseyin Dangelo MD Unavailable [phone] Brian Mon MD Primary Care Provider + Ernie Shaw MD Unavailable [phone] Encounter Details Date Type Department Care Team (Late st Contact Info) Description 06/24/2020 Documentation [facility] Psychiatry Lois Hyde LCSW [address] [facility] [address] [place] [address] Social History Tobacco Use Types [...] as of this encounter Progress Notes * Lois Hyde LCSW - 06/24/2020 7:33 PM CDT Behavioral Health Service SUCCESSFUL Phone Contact By Lois Hyde LCSW to Carito [place] 1990 Objective of Call: Check-In Outcome:Other:Pt unable to attend the offered times for new pt psychiatry appointment. Requested that psych scheduling make contact to offer other available appointments. Notified pt of plan via [employer]. Notes, if applicable: Lois Hyde LCSW Behavioral Health Service [facility] Department of Psychiatry [phone] documented in this encounter Plan of Treatment Not on file documented as of this encounter Visit Diagnoses Not on filedocumented in this encounter Care Teams Line Erector Relationship Specialty [place] [address] [address] [place] [address] PCP - General 07/04/19 [place] [address] [address] [place] [address] 11/16/18 Ernie Shaw MD [address] [facility] [address] [place] [address] Dish Up Person Obstetrics and Gynecology 06/10/20 documented as of this encounter
--- OUTSIDE RECORDS SUMMARY | 2024-02-24 20:08 | XMS_ITS | Encounter Summary ---
Author Organization [facility] [employer] of [facility] Address [address] [place] [address] Phone Care Team Providers Care Computer Animator Name Role Phone Huseyin Dangelo MD Unavailable [phone] Brian Mon MD Primary Care Provider + Ernie Shaw MD Unavailable [phone] Reason for Visit * Reason Onset Date Comments Lab Results 07/13/2020 Encounter Details Date Type Department Care Team (Late st Contact Info) Description 07/13/2020 Telephone [facility] Maternal- Medicine [address] [place] [address] Health 7th Floor [address] [place] [address] Fariba Chin messenger office Results Social History Tobacco Use Types Packs/Day [...] Telephone Encounter - Fariba Chin RN - 07/13/2020 3:43 PM CDT Carito called wanting to know if her NIPT results were back yet. I let her know that we have not received her results. I confirmed that she the test drawn on 07/08/20. I let her know the test results take up to 7-10 buisness days to get back and we will call her when we receive them. She verbalized understanding and stated she was just anxious. documented in this encounter Plan of Treatment Not on file documented as of this encounter Visit Diagnoses Not on filedocumented in this encounter Care Teams Computer Animator Relationship Specialty [place] [address] [address] [place] [address] PCP - General 07/04/19 [place] [address] [address] [place] [address] 11/16/18 Ernie Shaw MD [address] [place] [address] [address] [place] [address] Senior Materials Scientist Obstetrics and Gynecology 06/10/20 documented as of this encounter
--- OUTSIDE RECORDS SUMMARY | 2024-02-24 20:08 | XMS_ITS | Encounter Summary ---
Author Organization [facility] [employer] [facility] Address [address] [place] [address] Phone Care Team Providers Care Hand Rug Cleaner Name Role Phone Huseyin Dangelo MD Unavailable [phone] Brian Mon MD Primary Care Provider + Ernie Shaw MD Unavailable [phone] Encounter Details Date Type Department Care Team (Late st Contact Info) Description 07/30/2020 Telephone [facility] Maternal- Medicine [address] [facility] Outpatient Health 7th Floor [address] [place] [address] Fariba Chin RN Social History [...] Telephone Encounter - Fariba Chin RN - 07/30/2020 2:54 PM CDT Carito called stating she would prefer to only have a letter stating she needs to be off today and not through Sunday. I explained that Dr. Juarez asked me to write her a note to be off work through Sunday08/02/2020 toensure she had ample time to get better. I explained that if she has a fever we would not want her working because she could be contagious. She states since she took tylenol she no longer has a fever. I explained the tylenol has helped break her fever but we would want her to be fever free, off of tylenol for 24 hours before returning to work. She verbalized understanding but stated she is worried she will loose her job and only wants a letter for today. She stated that if she has a fever tomorrow they will send her home anyway. I let her know I would write her another letter but we do recommend she stay home from work unless she is fever free without medication. documented in this encounter Plan of Treatment Not on file documented as of this encounter Visit Diagnoses Not on filedocumented in this encounter Care Teams Hand Rug Cleaner Relationship Specialty [place] [address] [address] [place] [address] PCP - General 07/04/19 [place] [address] [address] [place] [address] 11/16/18 Ernie Shaw MD [address] [place] [address] [address] [facility] [place] [address] Web Services Developer Obstetrics and Gynecology 06/10/20 documented as of this encounter
--- OUTSIDE RECORDS SUMMARY | 2024-02-24 20:08 | XMS_ITS | Encounter Summary ---
Author Organization [facility] [employer] of [facility] Address [address] [place] [address] Phone Care Team Providers Care Customer Account Administrator Name Role Phone Huseyin Dangelo MD Unavailable [phone] Brian Mon MD Primary Care Provider + Ernie Shaw MD Unavailable [phone] Encounter Details Date Type Department Care Team (Late st Contact Info) Description 06/24/2020 Telephone [facility] Maternal- Medicine [address] [facility] Health 7th Floor [address] [place] [address] Fariba Chin RN Social History [...] Telephone Encounter - Fariba Chin RN - 06/24/2020 11:19 AM CDT I discussed the telephone call I had with Guillermo with Dr. Lazo. He recommends that she go to the [facility] for evaluation as well. I did let him know that she may refuse and he understood. I called Carito back and explained that I had spoken with Dr. Lazo regarding her concerns and relayed the recommendation of going to the [facility] to be evaluated. She stated she was just there yesterday and they didn't help her and it is expensive. I asked her if she told them she was having feelings of wanted to hurt herself and she didn't have and answer. She stated at the end of our conversation she would not go and would see us at her next appt. She then called back stating she needed to reschedule her appt for next week. I transferred her to the schedulers line. * Telephone Encounter - Fariba Chin RN - 06/24/2020 10:58 AM CDT Carito called stating she is having trouble with her medication. She has not been able to sleep, is sweaty and shaky. She states she took her off of Xanax and she has been taking it for 3 years and she feels she is having withdrawal symptoms. She then stated we prescribed zoloft for her but it made her sleepy and she called to see if she could be prescribed a different medication. I reviewed her chart and Dr. Lazo stated he would prefer that she continue on the zoloft and give it a few days to see if the symptoms of sleepiness getsbetter. We also discussed a referral to psychiatry and she agreed to that. She stated we then switched her medication to Buspar but in reading the notes and chart we were notthe ones to prescribe Buspar. I asked her who prescribed her this medication. She stated her Primary OB. I then asked which doctor was her primary OB and she stated Dr. Sheldon Delgado. She stated onceshe was switched to Buspar by Dr. Delgado she spoke with Dr. Lazo and he was ok with this plan. Since she feels these symptoms are related to not taking Xanax, she took 0.25mg last night and thismorning and is feeling better. She states she was able to sleep last night. She does still have sweats and shakiness. She also stated that she thinks the Buspar is causing bad symptoms as well so she stopped taking that. She stated her last dose was last night and she has started taking Zoloft again today. At the end of our conversation she stated she didn't know what else to do and she is having bad feelings I asked her, Are you have thoughts of wanting to harm yourself , She stated I don't know what these thoughts are, I know they are not me but I am having thoughts . I recommended that she go to be evaluated at the [facility] immediately. She stated she was there yesterday and they didn't do anything to help her. She stated that she felt like they were blowing her off. I again recommended she to the [facility] to be evaluated. She stated she didn't want to go. I told her that was our recommendation and in the mean time I would contact Dr. Lazo and call her back. documented in this encounter Plan of Treatment Not on file documented as of this encounter Visit Diagnoses Not on filedocumented in this encounter Care Teams Customer Account Administrator Relationship Specialty [place] [address] [address] [facility] [place] [address] PCP - General 07/04/19 [place] [address] [address] [facility] [place] [address] 11/16/18 Ernie Shaw MD [address] [place] [address] [address] [facility] [place] [address] Senior Corporate Recruiter Obstetrics and Gynecology 06/10/20 documented as of this encounter
--- OUTSIDE RECORDS SUMMARY | 2024-02-24 20:08 | XMS_ITS | Encounter Summary ---
Author Organization [facility] [place] of [facility] Address [address] [place] [address] Phone Care Team Providers Care Veterinary Laboratory Diagnostician Name Role Phone uHseyin Dangelo MD Unavailable [phone] Brian Mon MD Primary Care Provider + Ernie Shaw MD Unavailable [phone] Reason for Visit * Reason Onset Date Comments medication questions and fatigue 07/27/2020 Encounter Details Date Type Department Care Team (Late st Contact Info) Description 07/27/2020 Telephone [facility] Maternal- Medicine [address] [place] [address] Health 7th Floor [address] [place] [address] Fariba Chin RN medication questions and fatigue Social History Tobacco Use Types Packs/Day Years [...] encounter Miscellaneous Notes * Telephone Encounter - Aimee Paris MD - 07/27/2020 1:49 PM CDT It is a safe medication for her to take and she can continue. Aimee Paris MD Maternal Medicine Fellow Pager # * Telephone Encounter - Fariba Chin RN - 07/27/2020 12:16 PM CDT Carito called stating she has been very tired. She was prescribed Ferrous Gluconate in January by Dr. Fernandez and wants to know if she can continue to take it during . I let her know that Iwould check with the providers and get back to her. She verbalized understanding. She also stated that every once in a while when she bends over she gets a shock like feeling her belly and wanted to know if that was her feeling the baby move. I review her chart and noted she is 135/7 weeks and explained that movement is not usually felt until 18-22 weeks and verytypically not until closer to 22 weeks. I explained that she is more than likely feeling gas bubbles or a muscle spasm. She verbalized understanding. documented in this encounter Plan of Treatment Not on file documented as of this encounter Visit Diagnoses Not on filedocumented in this encounter Care Teams Veterinary Laboratory Diagnostician Relationship Specialty [place] [address] [address] [facility] [place] [address] PCP - General 07/04/19 [place] [address] [address] [facility] [place] [address] 11/16/18 Ernie Shaw MD [address] [place] [address] [address] [facility] [place] [address] Hatch Supervisor Obstetrics and Gynecology 06/10/20 documented as of this encounter
--- OUTSIDE RECORDS SUMMARY | 2024-02-24 20:08 | XMS_ITS | Encounter Summary ---
Author Organization [facility] [employer] of [facility] Address [address] [place] [address] Phone Care Team Providers Care Industrial Maintenance Instructor Name Role Phone Huseyin Dangelo MD Unavailable [phone] Brian Mon MD Primary Care Provider + Ernie Shaw MD Unavailable [phone] Reason for Visit * Reason Onset Date Comments Strep throat and antibiotics 07/28/2020 Encounter Details Date Type Department Care Team (Late st Contact Info) Description 07/28/[address] [facility] Maternal- Medicine [address] [place] [address] Health 7th Floor [address] [place] [address] Fariba Chin RN Strep throat and antibiotics Social History Tobacco Use Types Packs/Day Years [...] Telephone Encounter - Fariba Chin RN - 07/28/2020 11:06 AM CDT Carito called back stating she was unable to go to the urgent care yet because she has had to work and hasn't had time. She states that she is going to try to go today. 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 I explained that yes she could. She stated that she has not had oral or regular intercourse recently because she hasn't felt well. She said she looked at the back of her throat and she has a sore there. I encouraged her to get tested and evaluated and they would suggest treatment. She would like to go somewhere local since [place] hour away. She will keep us posted. * Telephone Encounter - Fariba Chin RN - 07/28/2020 9:19 AM CDT I called Carito to check in with her regarding possible strep throat and her questions about antibiotics. She didn't answer and I left a message and my direct phone number. I will also send her a my chart message. documented in this encounter Plan of Treatment Not on file documented as of this encounter Visit Diagnoses Not on filedocumented in this encounter Care Teams Industrial Maintenance Instructor Relationship Specialty [place] [address] [address] [place] [address] PCP - General 07/04/19 [place] [address] [address] [place] [address] 11/16/18 Ernie Shaw MD [address] [place] [address] [address] AUG[address] [facility] [place] [address] Meter Setter Obstetrics and Gynecology 06/10/20 documented as of this encounter
--- OUTSIDE RECORDS SUMMARY | 2024-02-24 20:08 | XMS_ITS | Encounter Summary ---
Author Organization [facility] [employer] of [facility] Address [address] [place] [address] Phone Care Team Providers Care Production Roustabout Name Role Phone Huseyin Dangelo MD Unavailable [phone] Brian Mon MD Primary Care Provider + Ernie Shaw MD Unavailable [phone] Encounter Details Date Type Department Care Team (Late st Contact Info) Description 06/25/2020 Telephone [facility] Psychiatry [facility] [place] [address] Remedios Nj Social History Tobacco [...] * Telephone Encounter - Remedios Nj - 06/25/2020 4:39 PM CDT ----- Message from Remedios Nj sent at 06/25/2020 4:38 PM CDT ----- Regarding: FW: Zoom visit Contact: ----- Message ----- From: Rianna Cruz MD Sent: 06/25/2020 1:51 PM CDT To: [facility], [facility] Sched Pool Subject: FW: Zoom visit ----- Message ----- From: Remedios Nj Sent: 06/25/2020 9:29 AM CDT To: Rianna Cruz MD, # Subject: FW: Zoom visit Dr. Cruz, Could you see this new patient who is only available on after 12:00? Thank you, Remedios ----- Message ----- From: Andrea Krishnan Sent: 06/23/2020 3:49 PM CDT To: Remedios Nj Subject: FW: Zoom visit ----- Message ----- From: Carito [place] Sent: 06/23/2020 1:18 PM CDT To: [facility] Administ[facility] Subject: RE: Zoom visit I will have to do it after 12 ----- Message ----- From: Remedios Nj Sent: 06/23/20, 10:18 AM To: Carito [place] Subject: Zoom visit Hello, Your Appointment Details Your Zoom visit is scheduled with the following provider: Dr. Rianna Cruz Department of Psychiatry 07/01/20 at 10:30 am Preparing for Your Zoom Appointment You will need to eCheck-in your [employer] Patient Portal up to 7 days before your appointment. Zoom is available for free in the Cognitum, Adspringr and on the M[employer] website: Download Zoom from the mBlox Store Download Zoom from the CogniFit Store Install from Zoom Website On the date of your appointment: Please log into your [employer] Patient Portal. Go to the appointment tab & select Begin Video Visit. You are able to join your visit up to 30 minutes before your appointment time and will be placed in a virtual waiting room. Make sure Zoom is NOT open on your device before you begin. If you join early, refresh the page frequently. During your video visit: You must be physically located in a state where your provider is licensed to practice medicine. If you've blocked your camera for privacy reasons, you will need to unblock it. No audio or video is recorded. If necessary, you can mute your microphone or stop your outgoing video at any time. Please select a quiet, private space for your visit and be sure you're connected to Wi-Fi to avoid additional charges from your wireless provider. To cancel or reschedule your appointment, please call [phone]. Thank you! Scheduling Team documented in this encounter Plan of Treatment Not on file documented as of this encounter Visit Diagnoses Not on filedocumented in this encounter Care Teams Production Roustabout Relationship Specialty [place] [address] [address] [place] [address] PCP - General 07/04/19 [place] [address] [address] [facility] [place] [address] 11/16/18 Ernie Shaw MD [address] [place] [address] [address] [place] [address] Children'S Nursery Assistant Obstetrics and Gynecology 06/10/20 documented as of this encounter
--- OUTSIDE RECORDS SUMMARY | 2024-02-24 20:08 | XMS_ITS | Encounter Summary ---
Author Organization [facility] [employer] of [facility] Address [address] [place] [address] Phone Care Team Providers Care Porcelain Technician Name Role Phone Huseyin Dangelo MD Unavailable [phone] Brian Mon MD Primary Care Provider + Ernie Shaw MD Unavailable [phone] Reason for Visit * Reason Onset Date Comments Scheduling Appointments 08/03/2020 Encounter Details Date Type Department Care Team (Late st Contact Info) Description 08/03/2020 Telephone [facility] [id number] [place] [address] Kelsey Saleh Scheduling Appointments Social [...] * Telephone Encounter - Kelsey Saleh - 08/03/2020 1:55 PM CDT ----- Message from SAMSON Benitez sent at 08/03/2020 1:42 PM CDT ----- Sarah Please schedule new therapy appt via telehealth ([phone]) 08/03 @ 4pm. with Rohan Griffiths he needs externalzoom link. Consent process was explained. Thanks documented in this encounter Plan of Treatment Not on file documented as of this encounter Visit Diagnoses Not on filedocumented in this encounter Care Teams Porcelain Technician Relationship Specialty [place] [address] [address] [facility] [address] [place] [address] PCP - General 07/04/19 [place] [address] [address] [facility] [address] [place] [address] 11/16/18 Ernie Shaw MD [address] [facility] [address] [place] [address] Shanker Out Obstetrics and Gynecology 06/10/20 documented as of this encounter
--- OUTSIDE RECORDS SUMMARY | 2024-02-24 20:08 | XMS_ITS | Encounter Summary ---
Author Organization [employer] [facility] Address [address] [place] [address] Phone Care Team Providers Care Animal Shelter Clerk Name Role Phone Huseyin Dangelo MD Unavailable [phone] Brian Mon MD Primary Care Provider + rEnie Shaw MD Unavailable [phone] Reason for Referral * Diagnostic Imaging (Routine) - Closed Specialty Diagnoses / Procedures Referred By Contac t Referred To Contact Diagnoses Supervision of high-risk , unspecified trimester Miscarriage Procedures US Ob Detail Anatomy Single Or First Gestation Lydia Juarez MD [address] [facility] [id number] [place] [address] Phone: tel: fax: [facility] (All Locations) Referral ID Status Reason Start Date Expiration Date Visits Re quested Visits Authorized [id number] Closed 07/08/2020 02/25/2021 1 1 Reason for Visit * Reason Comments High Risk Gestation Encounter Details Date Type Department Care Team (Late st Contact Info) Description 07/08/2020 3:30 PM CDT Office Visit [facility] Maternal- Medicine [facility] Health 7th Floor [address] [place] [address] Lydia Juarez MD [address] [facility] [phone] [place] [address] Supervision of high-risk , unspecified trimester (Primary Dx); Miscarriage; Lupus (CMS/HCC); Generalized anxiety disorder; Gume disease (CMS/HCC) Social History Tobacco Use Types Packs/Day [...] Sign Reading Time Taken Comments Blood Pressure 110/68 07/08/2020 3:31 PM CDT Pulse 104 07/08/2020 3:31 PM CDT Temperature - - Respiratory Rate - - Oxygen Saturation 97% 07/08/2020 3:31 PM CDT Inhaled Oxygen Concentration - - Weight 79.7 kg (175 lb 9.6 oz) 07/08/2020 3:31 P M CDT Height 160 cm (5' 3 ) 07/08/2020 3:31 PM CDT Body Mass Index 31.11 07/08/2020 3:31 PM CDT documented in this encounter Progress Notes * Faizan Coronel MD - 07/08/2020 3:30 PM CDT [facility] Return Visit 07/08/2020 Carito Spence is a 30 y.o. at 11w0d by LMP consistent with first trimester Ultrasound who is here for a return OB visit. Her is complicated by Gume disease, SLE, anxiety, andprior miscarriage. Subjective: She reports doing well today, no complaints. She denies any recent cramping or vaginal bleeding at this time. Reports mood stable. Reports no lupus flare symptoms. Objective: BP 110/68 Pulse 104 Ht 160 cm (5' 3 ) Wt 175 lb 9.6 oz (79.7 kg) LMP (LMP Unknown) Comment:LMP end of Mar 2020 SpO2 97% BMI 31.11 kg/m?? General: NAD Abdomen: Soft, nontender Extremities: WWP, no edema Ultrasound: 07/08/2020 11w0d CRL appropriate, pos FHT Assessment/Plan: Carito Spence is a 30 y.o. 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 She is maintained on 5mg daily of prednisone. Shewas transitioned to hydrocortisone when she found out the was . S/p counseling at initial visit Plan: -Specialized anatomy -Early 1 hr gtt -follow with endo -stress dose steroids at delivery Lupus ([facility]) Overview S/p counseling at initial visit Plan: -continue plaquenil, started on azathioprine and following with rheum - discontinued benlysta after counseling d/t concerns -Serial growths - testing at 32 weeks -81 mg ASA at 12 weeks -BMP q trimester for renal surveillance. -Baseline preElabs, P:C 91 Supervision of high-risk , unspecified trimester - Primary Overview [x] Co-management vs. [] Full [facility] Care; [x] Red Team [] Blue Team Referring Provider: Ernie Shaw [phone] Specialty Infusion Treatment Lupus ([facility]) Overview S/p counseling at initial visit Plan: -continue plaquenil, started on azathioprine and following with rheum - discontinued benlysta after counseling d/t concerns -Serial growths - testing at 32 weeks -81 mg ASA at 12 weeks -BMP q trimester for renal surveillance. -Baseline preElabs, P:C 91 Other Generalized anxiety disorder Overview Ms spence reports severe anxiety and near panic in this thus far. This is not a new issuefor her, but it has significantly worsened in . She is interested in seeing a counselor and starting medications. We reviewed SSRI use in . She reports that she was told she had partial seizures while on escitalipram so we will avoid this medication. We discussed sertraline has good data for its use in . S/p counseling at initial visit Plan: -[facility] referral, following -Zoloft 25 mg/day (patient did not tolerate)-> psych referral Miscarriage Overview S/p miscarriage x2, APLS and thrombophilia w/u neg S/p counseling Plan: -16 week cervical length Relevant Orders US Ob Detail Anatomy Single Or First Gestation RTC 3 weeks Patient was seen and discussed with Dr. Juarez who agrees with the above documented assessment andplan. Faizan Coronel MD Maternal- Medicine Fellow, PGY-5 Cosigned by Lydia Juarez MD at 07/14/2020 11:14 AM CDT Associated attestation - Lyida Juarez MD - 07/14/2020 11:14 AM CDT Attending Attestation I have seen, examined, and discussed Carito Spence with Dr. Coronel. I have evaluated the patientand reviewed the treatment plan and recommendations. I agree with the findings and the plan of careas documented. documented in this encounter Plan of Treatment Not on file documented as of this encounter Results * US Ob Detail [...] Supervision of high-risk , unspecified trimester- Primary Miscarriage Unspecified spontaneous without mention of complication Lupus Systemic lupus erythematosus Generalized anxiety disorder Gume disease (HCC) Glucocorticoid deficiency documented in this encounter Care Teams Animal Shelter Clerk Relationship Specialty [place] [address] [address] [facility] [address] [place] [address] PCP - General 07/04/19 [place] [address] [address] [facility] [address] [place] [address] 11/16/18 Ernie Shaw MD [address] [facility] [address] [place] [address] Head Trimmer Obstetrics and Gynecology 06/10/20 documented as of this encounter
--- OUTSIDE RECORDS SUMMARY | 2024-02-24 20:08 | XMS_ITS | Encounter Summary ---
Author Organization [facility] [employer] of [facility] Address [address] [place] [address] Phone Care Team Providers Care Friend Of The Court Name Role Phone Huseyin Dangelo MD Unavailable [phone] Brian Mon MD Primary Care Provider + Ernie Shaw MD Unavailable [phone] Encounter Details Date Type Department Care Team (Late st Contact Info) Description 07/19/2020 Orders Only [facility] Maternal- Medicine [address] [facility] Outpatient Health 7th Floor [address] [place] [address] Fariba Chin, RN Supervision of high-risk , unspecified trimester (Primary Dx); UTI symptoms Social History Tobacco [...] mouth 2 (two) times a day for 7 days 14 capsule 07/19/2020 documented in this encounter Plan of Treatment Scheduled Orders Name Type Priority Associated Diagnoses Orde r Schedule Urinalysis reflex to microscopic and culture Urine Microbiology Routine Supervision of high-risk , unspecified trimester UTI symptoms Expected: 07/19/2020, Expires: 07/19/2021 documented as of this encounter Visit Diagnoses Diagnosis Supervision of high-risk , unspecified trimester- Primary UTI symptoms documented in this encounter Care Teams Friend Of The Court Relationship Specialty [place] [address] [address] [place] [address] PCP - General 07/04/19 [place] [address] [address] [place] [address] 11/16/18 Ernie Shaw MD [address] [facility] [address] [place] [address] Elevator Constructor Helper Obstetrics and Gynecology 06/10/20 documented as of this encounter
--- OUTSIDE RECORDS SUMMARY | 2024-02-24 20:08 | XMS_ITS | Encounter Summary ---
Author Organization [facility] Healthcare Address [address] [place] [address] Care Team Providers Care Lens Cleaner Name Role Phone Huseyin Dangelo MD Unavailable [phone] Brian Mon MD Primary Care Provider + Ernie Shaw MD Unavailable [phone] Encounter Details Date Type Department Care Team (Late st Contact Info) Description 06/23/2020 5:15 PM CDT Ancillary Procedure [address] [address] Social History Tobacco Use Types Packs/Day Years [...] as of this encounter Plan of Treatment Pending Results Name Type Priority Associated Diagnoses Date /Time US Ob Limited Imaging IP Routine Supervision of high-risk , unspecified trimester 06/23/2020 5:11 PM CDT documented as of this encounter Procedures Procedure Name Priority Date/Time Associated Diagnosis Comments US OB LIMITED IP Routine 06/23/2020 5:11 PM CDT Supervision of high-risk , unspecified trimester Procedure Note - Wendi Ivey NP - 06/23/2020 5:11 PM CDTThis note is in progress. CRL 1.85cm/8w2d FHT 165bpm Wendi Ivey NP documented in this encounter Visit Diagnoses Not on filedocumented in this encounter Care Teams Lens Cleaner Relationship Specialty [place] [address] [address] [address] PCP - General 07/04/19 [place] [address] [address] [address] 11/16/18 Ernie Shaw MD [address] [place] [address] [address] [facility] [address] Folder Machine Operator Obstetrics and Gynecology 06/10/20 documented as of this encounter
--- OUTSIDE RECORDS SUMMARY | 2024-02-24 20:08 | XMS_ITS | Encounter Summary ---
Author Organization [facility] Healthcare Address [address] [place] [address] Care Team Providers Care Debug Technician Name Role Phone Huseyin Dangelo MD Unavailable [phone] Brian Mon MD Primary Care Provider + Ernie Shaw MD Unavailable [phone] Reason for Visit * Reason Onset Date Comments Incoming Call 07/18/2020 Having a Herpes break out and it hurts to walk Encounter Details Date Type Department Care Team (Late st Contact Info) Description 07/18/2020 Nurse Triage [address] [address] Violette Ludwig RN Social History Tobacco Use [...] Telephone Encounter - Violette Ludwig RN - 07/18/2020 11:45 AM CDT 1134: Patient called stating she is having a herpes outbreak. She is very sore and it is painful towalk. She is scheduled to work today and tomorrow. She has ordered her antiviral medication and states it will be working by Sunday when she works again. Patient is asking for a letter stating that she should not be working today or tomorrow (07/18/2020 - 07/19/2020) because of the pain she has when walking. 1143: Spoke with Dr. Lazo and gave report on patient and her request. A letter will be sent toher tomorrow. 1144: Contacted patient by telephone and explained that the letter will be sent to her tomorrow. Patient indicated understanding. Reason for Disposition ??? [1] Shingles rash already diagnosed and [2] taking antiviral medication Answer Assessment - Initial Assessment Questions 1. APPEARANCE of RASH: Describe the rash. Small blisters - some of them open 2. LOCATION: Where is the rash located? On the perineum 3. ONSET: When did the rash start? This morning. 4. ITCHING: Does the rash itch? If so, ask: How bad is the itch? (Scale 1- 10; or mild, moderate, severe) Moderate 5. PAIN: Does the rash hurt? If so, ask: How bad is the pain? (Scale 1-10; or mild, moderate, severe) Moderate 6. OTHER SYMPTOMS: Do you have any other symptoms? (e.g., fever) Denies 7. : Is there any chance you are ? When was your last menstrual period? at 12 weeks, 3 days Protocols used: [id number] documented in this encounter Plan of Treatment Not on file documented as of this encounter Visit Diagnoses Not on filedocumented in this encounter Care Teams Debug Technician Relationship Specialty [place] [address] [address] [place] [address] PCP - General 07/04/19 [place] [address] [address] [place] [address] 11/16/18 Ernie Shaw MD [address] [place] [address] [address] [place] [address] Postdoctoral Fellow Obstetrics and Gynecology 06/10/20 documented as of this encounter
--- OUTSIDE RECORDS SUMMARY | 2024-02-24 20:08 | XMS_ITS | Encounter Summary ---
Author Organization [facility] Address [address] [place] [address] Phone Care Team Providers Care Supervisor Modern Languages Name Role Phone Huseyin Dangelo MD Unavailable [phone] Brian Mon MD Primary Care Provider + Ernie Shaw MD Unavailable [phone] Encounter Details Date Type Department Care Team (Late st Contact Info) Description 07/02/2020 Orders Only [facility] Endocrinology Metabolism and Lipid 10 [facility] Medical Office Building [address] [address] Tran Lauren RMA Social History [...] Date predniSONE (DELTASONE) 5 mg tablet Take 2 tablets (10 mg) by mouth daily 60 tablet 07/02/2020 documented in this encounter Plan of Treatment Not on file documented as of this encounter Visit Diagnoses Not on filedocumented in this encounter Discontinued Medications Medication Sig Discontinue Reason Start Date End Da te predniSONE (DELTASONE) 5 mg tablet Take 2 tablets (10 mg) by mouth daily Reorder 06/28/2020 07/02/2020 documented as of this encounter Care Teams Supervisor Modern Languages Relationship Specialty [place] [address] [address] [address] PCP - General 07/04/19 [place] [address] [address] [address] 11/16/18 Ernie Shaw MD [address] [place] [address] [address] [place] [address] Mason Apprentice Obstetrics and Gynecology 06/10/20 documented as of this encounter
--- OUTSIDE RECORDS SUMMARY | 2024-02-24 20:08 | XMS_ITS | Encounter Summary ---
Author Organization [facility] Healthcare Address [address] [place] [address] Care Team Providers Care C Java Developer Name Role Phone Huseyin Dangelo MD Unavailable [phone] Brian Mon MD Primary Care Provider + Ernie Shaw MD Unavailable [phone] Reason for Visit * Reason Onset Date Comments Incoming Call 08/07/2020 question about MD note Encounter Details Date Type Department Care Team (Late st Contact Info) Description 08/07/[address] [phone] Fallon Callahan, RN Incoming Call (question about MD note) Social History Tobacco Use Types Packs/Day Years [...] Encounter - Fallon Callahan RN - 08/07/2020 2:20 PM CDT Called requesting note for work from visit yesterday. Instructed to call her MD office on Sunday torequest note. Verbalized understanding of instructions. documented in this encounter Plan of Treatment Not on file documented as of this encounter Visit Diagnoses Not on filedocumented in this encounter Care Teams C Java Developer Relationship Specialty [place] [address] [address] [address] PCP - General 07/04/19 [place] [address] [address] [place] [address] 11/16/18 Ernie Shaw MD [address] [place] [address] [address] [place] [address] Varnish Filterer Obstetrics and Gynecology 06/10/20 documented as of this encounter
--- OUTSIDE RECORDS SUMMARY | 2024-02-24 20:08 | XMS_ITS | Encounter Summary ---
Author Organization [facility] Healthcare Address [address] [place] [address] Care Team Providers Care Director Of Nursing Name Role Phone Huseyin Dangelo MD Unavailable [phone] Brian Mon MD Primary Care Provider + Ernie Shaw MD Unavailable [phone] Reason for Visit * Reason Onset Date Comments Incoming Call 07/27/2020 question about antibiotics for strep throat Encounter Details Date Type Department Care Team (Late st Contact Info) Description 07/27/[address] [phone] Amy Rodriges RN Incoming Call (question about antibiotics for strep throat) Social History Tobacco Use Types Packs/Day Years [...] Encounter - Fariba Chin RN - 07/28/2020 9:18 AM CDT I will reach out to the patient. Thank you, Fariba * Telephone Encounter - Crystal Murray MD - 07/27/2020 8:30 PM CDT Jonatan Em. I was in the OR. Now seeing this message. Will send to Dr. Saavedra who is contracting support specialist in theevent she call back. [facility] nurses - Can someone follow up with her tomorrow.? * Telephone Encounter - Amy Rodriges RN - 07/27/2020 5:03 PM CDT Patient calling after hour line asking what antibiotics are safe in for strep throat if you have a PCN allergy? Patient states she has strep throat. I asked where she had her throat culturedone and they didn't treat her? She stated she is going to an urgent care now to have that done because she lives 1 hour away. She wanted to be able to tell them what antibiotics to give her. I explained that the providers would know what antibiotics are safe for PCN allergies and and they could always call us if they have questions. Patient still wants to know what antibiotics she could have. Can I have Zithromax? Again informed patient that I was a nurse and did not prescribe meds. That if she indeed does have a strep throat, they will order the appropriate treatment. Patient going now to local urgent care. documented in this encounter Plan of Treatment Not on file documented as of this encounter Visit Diagnoses Not on filedocumented in this encounter Care Teams Director Of Nursing Relationship Specialty [place] [address] [address] [place] [address] PCP - General 5/8/20 [place] [address] [facility] [address] [place] [address] 11/16/18 Ernie Shaw MD [address] [place] [address] [address] [place] [address] Duct Maker Obstetrics and Gynecology 06/10/20 documented as of this encounter
--- OUTSIDE RECORDS SUMMARY | 2024-02-24 20:08 | XMS_ITS | Encounter Summary ---
Author Organization [facility] Address [address] [place] [address] Phone Care Team Providers Care Refinery Operator Polymerization Plant Name Role Phone Huseyin Dangelo MD Unavailable [phone] Brian Mon MD Primary Care Provider + Ernie Shaw MD Unavailable [phone] Reason for Visit * Reason Comments Psychotherapy Encounter Details Date Type Department Care Team (Late st Contact Info) Description 08/03/2020 4:00 PM CDT Telemedicine [facility] Psychiatry [address] [place] [address] Generalized anxiety disorder (Primary Dx) Social History Tobacco Use Types [...] as of this encounter Progress Notes * Jermaine Griffiths, IVÁN - 08/03/2020 4:00 PM CDT Behavioral Health Service SUCCESSFUL Phone Contact By VESNA Hamilton to Carito Madison 1990 Objective of Call: Check-In Outcome:Successful Contact and Other:The therapist was unable to have therapy with the pt due to lack of [place] certification. The therapist completed the wellness check and the pt plans to reschedule therapy appointment, Notes, if applicable: The pt expressed that she does not see the need for therapy and was attendingby recommendation of her psychiatrist. VESNA Hamilton Behavioral Health Service [facility] Department of Psychiatry [phone] documented in this encounter Plan of Treatment Not on file documented as of this encounter Visit Diagnoses Diagnosis Generalized anxiety disorder- Primary documented in this encounter Care Teams Refinery Operator Polymerization Plant Relationship Specialty [place] [address] [address] [place] [address] PCP - General 07/04/19 [place] [address] [address] [place] [address] 11/16/18 Ernie Shaw MD [address] [place] [address] [address] [place] [address] Rail Bonder Obstetrics and Gynecology 06/10/20 documented as of this encounter
--- OUTSIDE RECORDS SUMMARY | 2024-02-24 20:08 | XMS_ITS | Encounter Summary ---
Author Organization [facility] of [facility] Address [address] [place] [address] Phone Care Team Providers Care Sack Department Supervisor Name Role Phone Huseyin Dangelo MD Unavailable [phone] Brian Mon MD Primary Care Provider + Ernie Shaw MD Unavailable [phone] Encounter Details Date Type Department Care Team (Late st Contact Info) Description 06/25/2020 Telephone [facility] Psych[facility] [place] [address] Remedios Nj Social History Tobacco [...] Telephone Encounter - Remedios Nj - 06/25/2020 11:09 AM CDT ----- Message from Remedios Nj sent at 06/25/2020 9:29 AM CDT ----- Regarding: FW: Zoom visit Contact: Dr. Cruz, Could you see this new patient who is only available on after 12:00? Thank you, Remedios ----- Message ----- From: Andrea Krishnan Sent: 06/23/2020 3:49 PM CDT To: Remedios Nj Subject: FW: Zoom visit ----- Message ----- From: Carito Madison Sent: 06/23/2020 1:18 PM CDT To: [employer] Subject: RE: Zoom visit I will have to do it after 12 ----- Message ----- From: Remedios Nj Sent: 06/23/20, 10:18 AM To: Carito Madison Subject: Zoom visit [place], Your Appointment Details Your Zoom visit is scheduled with the following provider: Dr. Rianna Cruz Department of Psychiatry 07/01/20 at 10:30 am Preparing for Your Zoom Appointment You will need to eCheck-in your [facility] Patient Portal up to 7 days before your appointment. Zoom is available for free in the [employer], [employer] and on the [employer] website: Download Zoom from the [employer] Store Download Zoom from the [employer] Store Install from Zoom Website On the date of your appointment: Please log into your [facility] Patient Portal. Go to the appointment tab [...] visit and be sure you're connected to [employer] to avoid additional charges from your wireless provider. To cancel or reschedule your appointment, please call [phone]. Thank you! Scheduling Team documented in this encounter Plan of Treatment Not on file documented as of this encounter Visit Diagnoses Not on filedocumented in this encounter Care Teams Sack Department Supervisor Relationship Specialty [place] [address] [address] [facility] [place] [address] PCP - General 07/04/19 [place] [address] [address] [facility] [place] [address] 11/16/18 Ernie Shaw MD [address] [place] [address] [address] [place] [address] Society Reporter Obstetrics and Gynecology 06/10/20 documented as of this encounter
--- OUTSIDE RECORDS SUMMARY | 2024-02-24 20:08 | XMS_ITS | Encounter Summary ---
Author Organization [facility] [email or web address] [facility] Address [address] [place] [address] Phone Care Team Providers Care Certified Ethical Hacker Name Role Phone Huseyin Dangelo MD Unavailable [phone] Brian Mon MD Primary Care Provider + Ernie Shaw MD Unavailable [phone] Reason for Visit * Reason Onset Date Comments Incoming Call 08/05/2020 constipat ion in Encounter Details Date Type Department Care Team (Late st Contact Info) Description 08/05/2020 Nurse Triage [facility] Maternal- Medicine [facility] 7th Floor [address] [place] [address] Crystal Murray MD [address] [place] [address] [phone] [place] [address] Social History Tobacco Use Types [...] Telephone Encounter - Amy Rodriges RN - 08/05/2020 5:57 PM CDT Patient called after hour line c/o constipation, feeling bloated, and nothing working. Patient wants to know if people come in for this or is there anything else she can try? States has only been able to pass small hard rock like pieces of stool despite taking miralax, sennakot, MOM, suppositories.States is drinking enough water. Patient just feels uncomfortable. Can she try a Fleets enema-she has one. Patient denies uterine cramping, vaginal dc or VB. Per [facility] MATHEMATICAL ENGINEER patient can take Fleets normalsaline enema to see if that helps. Advised patient to call back if no result from Fleets. No further questions or needs at this time. Reason for Disposition ? ? Last bowel movement (BM) > 4 days ago Answer Assessment - Initial Assessment Questions 1. STOOL PATTERN OR FREQUENCY: How often do you pass bowel movements (BMs)? (Normal range: tid toq 3 days) When was the last BM passed? I had a little pebble yesterday. I haven't had a good BM in days. 2. STRAINING: Do you have to strain to have a BM? Yes and all that comes out is a little hard rock like stool 3. RECTAL PAIN: Does your rectum hurt when the stool comes out? If so, ask: Do you have hemorrhoids? How bad is the pain? (Scale 1-10; or mild, moderate, severe) No hemorrhoids that I know of. . I'm just so bloated and fell so full. 4. STOOL COMPOSITION: Are the stools hard? yes 5. BLOOD ON STOOLS: Has there been any blood on the toilet tissue or on the surface of the BM? Ifso, ask: When was the last time? None that I have seen but I haven't really had a BM 6. CHRONIC CONSTIPATION: Is this a new problem for you? If no, ask: How long have you had this problem? (days, weeks, months) A few weeks 7. CHANGES IN DIET: Have there been any recent changes in your diet? no 8. MEDICATIONS: Have you been taking any new medications? What type of vitamins are youtaking? Just PNvits 9. LAXATIVES: Have you been using any laxatives or enemas? If yes, ask What, how often, and whenwas the last time? I've tried everything-the sennekot, MOM, miralax twice a day. Suppositories. Do people take enemas?Can I take a Fleets enama? 10. OTHER SYMPTOMS: Do you have any other symptoms? (e.g., abdominal pain, fever, vaginal bleeding, decreased movement) No contrs, LOF, vaginal dc or VB. Baby is moving. I just feel lI need to go to the BR. 11. MANE: What date are you expecting to deliver? Protocols used: - [id number] documented in this encounter Plan of Treatment Not on file documented as of this encounter Visit Diagnoses Not on filedocumented in this encounter Care Teams Certified Ethical Hacker Relationship Specialty [place] [address] [address] [place] [address] PCP - General 07/04/19 [place] [address] [address] [facility] [place] [address] 11/16/18 Ernie Shaw MD [address] [place] [address] [address] [place] [address] Deputy County Counsel Obstetrics and Gynecology 06/10/20 documented as of this encounter
--- OUTSIDE RECORDS SUMMARY | 2024-02-24 20:08 | XMS_ITS | Encounter Summary ---
Author Organization [facility] Address [address] [place] [address] Phone Care Team Providers Care Whipped Topping Mixer Name Role Phone Huseyin Dangelo MD Unavailable [phone] Brian Mon MD Primary Care Provider + Ernie Shaw MD Unavailable [phone] Encounter Details Date Type Department Care Team (Late st Contact Info) Description 08/03/2020 Telephone [facility] Psychiatry [address] [facility] 2nd Floor [address] [place] [address] Courtney June BS Social History [...] Telephone Encounter - Courtney June BS - 08/03/2020 2:12 PM CDT Behavioral Health Service SUCCESSFUL Phone Contact By SAMSON Benitez to Carito Madison 1990 Objective of Call: Return pt call Outcome:Successful Contact Notes, if applicable: Coordinator returned pts call. Coordinator scheduled pt for therapy with RohanTunde on 08/03 @ 4pm. SAMSON Benitez Behavioral Health Service [facility] Department of Psychiatry [phone] documented in this encounter Plan of Treatment Not on file documented as of this encounter Visit Diagnoses Not on filedocumented in this encounter Care Teams Whipped Topping Mixer Relationship Specialty [place] [address] [address] [place] [address] PCP - General 07/04/19 [place] [address] [address] [place] [address] 11/16/18 Ernie Shaw MD [address] [facility] [address] [place] [address] Longwall Headgate Operator Obstetrics and Gynecology 06/10/20 documented as of this encounter
--- OUTSIDE RECORDS SUMMARY | 2024-02-24 20:08 | XMS_ITS | Encounter Summary ---
Author Organization [facility] Healthcare Address [address] [place] [address] Care Team Providers Care Jail Manager Name Role Phone Huseyin Dangelo MD Unavailable [phone] Brian Mon MD Primary Care Provider + Ernie Shaw MD Unavailable [phone] Reason for Visit * Reason Comments Problem abd pain Encounter Details Date Type Department Care Team (Latest Contact Info) Description 08/06/2020 3:56 PM CDT - 08/06/2020 5:28 PM CDT Hospital Encounter [address] [address] Nathalie Shukla MD [address] [id number] Discharge Disposition: Discharge to home or self [...] Sign Reading Time Taken Comments Blood Pressure 144/89 08/06/2020 4:02 PM CDT Pulse 115 08/06/2020 4:08 PM CDT Temperature 36.7 ??C (98.1 ??F) 08/06/2020 4:01 PM CD T Respiratory Rate 18 08/06/2020 4:01 PM CDT Oxygen Saturation 98% 08/06/2020 4:08 PM CDT Inhaled Oxygen Concentration - - Weight 81.7 kg (180 lb 3.2 oz) 08/06/2020 4:01 P M CDT Height 160 cm (5' 3 ) 08/06/2020 4:01 PM CDT Body Mass Index 31.92 08/06/2020 4:01 PM CDT documented in this encounter Discharge Diagnoses Diagnosis Other specified related conditions, second trimester - OTHER SPECIFIED RELATED CONDITIONS, SECOND TRIMESTER Unspecified abdominal pain - UNSPECIFIED ABDOMINAL PAIN Constipation, unspecified - CONSTIPATION, UNSPECIFIED 15 weeks gestation of - 15 WEEKS GESTATION OF Other specified diseases and conditions complicating - OTHER SPECIFIED DISEASES AND CONDITIONS COMPLICATING Chronic kidney disease, unspecified - CHRONIC KIDNEY DISEASE, UNSPECIFIED Epilepsy, unspecified, not intractable, without status epilepticus (HCC) - EPILEPSY, UNSPECIFIED, NOT INTRACTABLE, WITHOUT STATUS EPILEPTICUS Systemic lupus erythematosus, unspecified (HCC) - SYSTEMIC LUPUS ERYTHEMATOSUS, UNSPECIFIED Fibromyalgia - FIBROMYALGIA Unspecified myalgia and myositis Primary adrenocortical insufficiency (HCC) - PRIMARY ADRENOCORTICAL INSUFFICIENCY Glucocorticoid deficiency Diseases of the respiratory system complicating , second trimester - DISEASES OF THE RESPIRATORY SYSTEM COMPLICATING , SECOND TRIMESTER Unspecified asthma, uncomplicated - UNSPECIFIED ASTHMA, UNCOMPLICATED Noninfective gastroenteritis and colitis, unspecified - NONINFECTIVE GASTROENTERITIS AND COLITIS, UNSPECIFIED Rheumatoid arthritis, unspecified (HCC) - RHEUMATOID ARTHRITIS, UNSPECIFIED Migraine, unspecified, not intractable, without status migrainosus - MIGRAINE, UNSPECIFIED, NOT INTRACTABLE, WITHOUT STATUS MIGRAINOSUS Other mental disorders complicating , second trimester - OTHER MENTAL DISORDERS COMPLICATING , SECOND TRIMESTER Anxiety disorder, unspecified - ANXIETY DISORDER, UNSPECIFIED Major depressive disorder, single episode, unspecified - MAJOR DEPRESSIVE DISORDER, SINGLE EPISODE, UNSPECIFIED Personal history of nicotine dependence - PERSONAL HISTORY OF NICOTINE DEPENDENCE USP (current) use of systemic steroids - [facility]CI (CURRENT) USE OF SYSTEMIC STEROIDS documented in this encounter Discharge Instructions * Discharge Instructions* Layla Hanson RN - 08/06/2020 5:21 PM CDT May take mag citrate as per label for constipation, increase fruits and vegetables and water for constitipation. documented in this encounter Medications at Time of Discharge azaTHIOprine (IMURAN) 50 mg tablet Take 1 [...] nausea or vomiting 20 tablet 10/03/2019 1 predniSONE (DELTASONE) 1 mg tablet prednisone 1 mg tablet TAKE 1 TABLET BY MOUTH EVERY DAY 1 predniSONE (DELTASONE) 5 mg tablet Take 2 tablets (10 mg) by mouth daily 60 tablet 07/02/2020 1 progesterone (PROMETRIUM) 200 mg capsule Take by mouth daily 06/01/2020 1 sertraline (ZOLOFT) 50 mg tablet Take 1.5 tablets (75 mg total) by mouth daily 45 tablet 2 07/15/2020 1 triamcinolone (KENALOG) 0.1 % cream Apply [...] H&P Notes * Margarita Olea MD - 08/06/2020 4:21 PM CDT Obstetrics H&P Chief Complaint: Abdominal pain Estimated Date of Delivery: 01/27/21 Provider: RENETTA HPI: Carito Madison is a 30 y.o. female at 15w1d gestation, dated by 1st trimester ultrasound. Patient reports 7 days of cramping abdominal pain. Patient reports she has needed to use enemas daily for bowel movements. Reports taking miralax since Sunday. Endorses flatus and tolerating PO intake. Patient also anxious about cervical dilation due to history of SAB at 16 weeks. Denies contractions, vaginal bleeding or LOF. Reports feeling faint movement. 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 Patient [...] ??? Rheumatoid arthritis (CMS/HCC) ??? Seizures (CMS/HCC) Chronic hypertension: No Diabetes: No [...] Smoker Quit date: 12/28/2018 Years since quittin.6 ??? Smokeless tobacco: Never Used Vaping Use ??? Vaping Use: Never used Substance and Sexual Activity ??? Alcohol use: Yes Comment: occasionally ??? Drug use: Not Currently Types: Marijuana Comment: smoked last night ??? Sexual activity: Yes Partners: Male Support [...] developmental delay: No Allergies Allergen Reactions ??? Methylprednisolone Anaphylaxis and Syncope Syncope ??? Penicillins Hives and Rash ??? Amoxicillin Rash ??? Escitalopram Other (See comments) and Rash Caused seizures Caused seizures Caused seizures ??? Aripiprazole Other (See comments) ??? Venlafaxine Itching HOME MEDICATIONS : azaTHIOprine (IMURAN) 50 mg tablet belimumab (Benlysta) auto-injector bromocriptine (PARLODEL) 2.5 mg tablet ergocalciferol (VITAMIN D) 50,000 unit capsule ferrous gluconate 324 mg (38 mg of elemental iron) tablet hydrocortisone (CORTEF) 5 mg tablet hydrOXYchloroQUINE (PLAQUENIL) 200 mg tablet ipratropium (ATROVENT) 0.03 % nasal spray meclizine (ANTIVERT) 25 mg tablet multivitamin capsule omeprazole (PriLOSEC) 20 mg capsule ondansetron (ZOFRAN) 4 mg tablet predniSONE (DELTASONE) 1 mg tablet progesterone (PROMETRIUM) 200 mg capsule sertraline (ZOLOFT) 50 mg tablet triamcinolone (KENALOG) 0.1 % cream valACYclovir (VALTREX) 500 mg tablet Ventolin HFA 90 mcg/actuation inhaler Review of Systems: Negative except per HPI Vitals: Temp: [36.7 ??C (98.1 ??F)] 36.7 ??C (98.1 ??F) Pulse: [110] 110 Resp: [18] 18 BP: (144)/(89) 144/89 Physical Exam: General: NAD, anxious Cardiovascular: Regular rate and rhythm Pulmonary: Clear to ausculation bilaterally Abdomen: Gravid, non-tender Extremities: Warm and well perfused Speculum Exam: No vaginal pooling, ferning negative, nitrazine negative. Wet preop negative x3. Whiff negative Cervix: deferred Ultrasound: FHR 139 bpm Labs: Lab Results Component Value Date ABORH A Positive 08/02/2020 IDCOOMB Negative ABSC 08/02/2020 Assessment and Plan Carito Madison is a 30 y.o. female at 15w1d who presented with abdominal pain and constipation. #Abdominal pain - Reports daily enema use for bowel movements - VS notable for tachycardiac, patient visibly anxious - Patient reports improvement in abdominal pain after US and speculum exam - Reassured by benign abdominal exam, flatus, and tolerating PO intake - Discussed daily bowel regimen with miralax BID and colace - Discussed using enemas PRN, no intended for daily use - Patient requesting discharge after exam - Given and obstruction return precautions Discussed with Dr. Olea. Zuleyma Amato MD 08/06/20 [facility] Fellow Attestation I have discussed Carito Madison with the resident, Dr. Diaz. I have reviewed the treatment plan and recommendations. I agree with the findings and the plan of care as documented in the resident???s note. Bowel regimen and counseling provided. Margarita Olea MD Maternal- Medicine Fellow Cosigned by Nathalie Shukla MD at 08/07/2020 9:28 AM CDT Associated attestation - Nathalie Shukla MD - 08/07/2020 9:28 AM CDT The resident/fellow saw and examined the patient, we discussed their findings, and I am in agreement with the plan based on the discussion with the resident/fellow. I did not personally examine the patient. documented in this encounter Nursing Notes * Layla Hanson, RN - 08/06/2020 5:24 PM CDT Pt presents to [facility] with complaint of lower and pain and feeling bloated. Took Fleets enema at home and had small hard manuela. Pt denies any vaginal bleeding. Encouraged pt to increase water consumption along with more fruits and vegetables. Pt has Miralx at home. Dischargeded to home documented in this encounter Plan of Treatment Not on file documented as of this encounter Procedures Procedure Name Priority Date/Time Associated Diagnosis Comments POCT URINALYSIS DIPSTICK Routine 08/06/2020 4:27 PM CDT documented in this encounter Results * (ABNORMAL) POCT urinalysis dipstick (08/06/2020 4:27 PM CDT) Color, Urine, POC Yellow Clarity, ur, POC Clear Clear Glucose, ur, POC Negative Negative mg/dL Ketones, ur, POC Negative Negative Specific [place], POC 1.030 1.005 - 1.030 Blood, ur, POC Negative Negative pH, ur, POC 7.0 5.0 - 8.0 Protein, ur, POC Negative Negative Nitrite, ur, POC Negative Negative Leukocytes, ur, POC Negative Negative Lot Number [id number] Urine 08/06/2020 4:27 PM CDT Zuleyma Amato MD POINT OF CARE TEST ORDERABLES Final Result documented in this encounter Visit Diagnoses Not on filedocumented in this encounter Administered Medications Inactive Administered Medications - up to 3 most recent administrations Medication Order MAR Action Action Date Dose Rate Site acetaminophen (TYLENOL) tablet 1,000 mg 1,000 mg, oral, Once, On Sun08/06/20 at 1730, For 1 dose magnesium citrate oral solution 296 mL 296 mL, oral, Once, On Sun08/06/20 at 1745, For 1 dose polyethylene glycol (MIRALAX) packet 17 g 17 g, oral, Daily, First dose on Sun08/06/20 at 1730, Indications: constipationIndications:constipation documented in this encounter Active and Recently Administered Medications Times are shown in CDT. Scheduled Medication Order 08/04/2020 08/05/2020 08/06/2020 acetaminophen (TYLENOL) tablet 1,000 mg 1,000 mg, oral, Once, On Sun08/06/20 at 1730, For 1 dose magnesium citrate oral solution 296 mL 296 mL, oral, Once, On Sun08/06/20 at 1745, For 1 dose polyethylene glycol (MIRALAX) packet 17 g 17 g, oral, Daily, First dose on Sun08/06/20 at 1730, Indications: constipation documented in this encounter Orders Medications Ordered That Omer ht Not Have Been Administered Count Last Ordered Date First Ordered Date acetaminophen (TYLENOL) tablet 1,000 mg 1 0 08/06/2020 magnesium citrate oral solution 296 mL 1 polyethylene glycol (MIRALAX) packet 17 g 1 08/06/2020 documented in this encounter Care Teams Jail Manager Relationship Specialty [place] [address] [address] [facility] [place] [address] PCP - General 07/04/19 [place] [address] [address] [facility] [place] [address] 11/16/18 Ernie Shaw MD [address] [place] [address] [address] [place] [address] Bed Setter Obstetrics and Gynecology 06/10/20 documented as of this encounter
--- OUTSIDE RECORDS SUMMARY | 2024-02-24 20:08 | XMS_ITS | Encounter Summary ---
Author Organization [facility] Address [address] [place] [address] Phone Care Team Providers Care Food Beverage Attendant Name Role Phone Huseyin Dangelo MD Unavailable Brian Mon MD Primary Care Provider + Ernie Shaw MD Unavailable [phone] Encounter Details Date Type Department Care Team (Late st Contact Info) Description 08/03/2020 Telephone [facility] Psychiatry [address] [facility] 2nd [address] [place] [address] Courtney June BS Social History [...] Encounter - Courtney June BS - 08/03/2020 1:03 PM CDT Behavioral Health Service ATTEMPTED Phone Contact By SAMSON Benitez to Carito Madison 1990 Objective of Call: Return pt call Outcome:Left Voicemail with standard instructions to call [facility] Office at [phone] Notes, if applicable: Coordinator returned pts call to schedule therapy appt. Coordinator left pt a voicemail. SAMSON Benitez Behavioral Health Service [facility] Department of Psychiatry [phone] documented in this encounter Plan of Treatment Not on file documented as of this encounter Visit Diagnoses Not on filedocumented in this encounter Care Teams Food Beverage Attendant Relationship Specialty [place] [address] [address] PCP - General 07/04/19 [place] [address] [address] [place] [address] 11/16/18 Ernie Shaw MD [address] [place] [address] Ripening Room Hand Obstetrics and Gynecology 06/10/20 documented as of this encounter
--- OUTSIDE RECORDS SUMMARY | 2024-02-24 20:08 | XMS_ITS | Encounter Summary ---
Author Organization [facility] Healthcare Address [address] [place] [address] Care Team Providers Care Delivery Lead Name Role Phone Huseyin Dangelo MD Unavailable [phone] Brian Mon MD Primary Care Provider + Ernie Shaw MD Unavailable [phone] Reason for Visit * Reason Onset Date Comments Incoming Call 08/06/2020 constipat ion f/u Encounter Details Date Type Department Care Team (Late st Contact Info) Description 08/06/[address] [id number] Amy Rodriges RN Incoming Call (constipation f/u) Social History Tobacco Use Types Packs/Day [...] Telephone Encounter - Amy Rodriges RN - 08/06/2020 10:52 AM CDT [address] calling on her way to work stating she had good results from fleets enema last night but now has some upper right sided pain. States it really hurts and doesn't go away. Patient has not taken any tylenol and is on her way to work. Pain could be from hard stool that is now working it's way down. Patient has gas. Patient advised the only way to know what is going on is to be evaluated in [facility]. Patient has to work and states she will come afterwards. Encouraged patient to force fluids,fruit juice and see if pain improves today while working. If still there, patient will come to [facility]. documented in this encounter Plan of Treatment Not on file documented as of this encounter Visit Diagnoses Not on filedocumented in this encounter Care Teams Delivery Lead Relationship Specialty [place] [address] [address] [facility] [place] [address] PCP - General 07/04/19 [place] [address] [address] [facility] [place] [address] 11/16/18 Ernie Shaw MD [address] [place] [address] [address] [place] [address] Manager Of Transportation Obstetrics and Gynecology 06/10/20 documented as of this encounter
--- OUTSIDE RECORDS SUMMARY | 2024-02-24 20:08 | XMS_ITS | Encounter Summary ---
Author Organization [facility] Address [address] [place] [address] Phone Care Team Providers Care Application Designer Name Role Phone Huseyin Dangelo MD Unavailable [phone] Brian Mon MD Primary Care Provider + Ernie Shaw MD Unavailable Encounter Details Date Type Department Care Team (Late st Contact Info) Description 07/30/2020 Telephone [facility] Department of Psychiatry [address] [place] [address] Rianna Cruz MD [address] [facility] [address] [place] [address] Social History Tobacco Use Types Packs/Day Years [...] Telephone Encounter - Rianna Cruz MD - 07/30/2020 12:15 PM CDT ----- Message from VESNA Dove sent at 07/30/2020 10:46 AM CDT ----- To follow-up, we tried to reach her twice and haven't heard back. Should she express interest in therapy, have her give us a call at [phone]. Thanks! ----- Message ----- From: Rianna Cruz MD Sent: 07/15/2020 4:51 PM CDT To: VESNA Dove This might be a good patient for the resident, she is quite insightful. -Rianna documented in this encounter Plan of Treatment Not on file documented as of this encounter Visit Diagnoses Not on filedocumented in this encounter Care Teams Application Designer Relationship Specialty [place] [address] [address] [facility] [place] [address] PCP - General 07/04/19 [place] [address] [address] [place] [address] 11/16/18 Ernie Shaw MD [address] [place] [address] [address] [place] [address] Gun Striper Obstetrics and Gynecology 06/10/20 documented as of this encounter
--- OUTSIDE RECORDS SUMMARY | 2024-02-24 20:08 | XMS_ITS | Encounter Summary ---
Author Organization [facility] Address [address] [place] [address] Phone Care Team Providers Care Wide Area Network Engineer Name Role Phone Huseyin Dangelo MD Unavailable [phone] Brian Mon MD Primary Care Provider + Ernie Shaw MD Unavailable [phone] Reason for Visit * Reason Onset Date Comments herpes outbreak 07/19/2020 Encounter Details Date Type Department Care Team (Late st Contact Info) Description 07/19/2020 Telephone [facility] Maternal- Medicine [address] [place] [address] Health 7th Floor [address] [place] [address] Fariba Chin RN herpes outbreak Social History Tobacco Use Types Packs/Day Years [...] Telephone Encounter - Fariba Chin RN - 07/19/2020 9:10 AM CDT Carito called this morning stating she has a bad herpes outbreak and needs guidance on now much valacyclovir to take. She already has prescriptions from her primary OB that are refills. Secondly, she needs a note for work. She has been in so much pain from the outbreak that she can hardly work. She had to call in to work on and 07/19. She stated she called the after hours line yesterday and they paged and spoke with Dr. Lazo. He stated that we could write a letter for her to be off work. Lastly, she states she has had some watery discharge and her underwear has been wet. She states it is not enough to wear a pad and happen usually after she has just voided and wiped, then has a trickle. She states that she feels like she needs to use the bathroom all the time. I discussed all of items with Dr. Coronel. Here are his recommendations: Valacylcovir 1gm daily for 5 days. She already has a prescription. Letter may be written for her to be off work 07/18-07/19. Urine analysis with reflex to culture to be ordered and obtained. In the mean time treat with Macrobid 100 mg BID for 7 days. I called Carito back and let her know that above plan of care. She verbalized understanding. documented in this encounter Plan of Treatment Not on file documented as of this encounter Visit Diagnoses Not on filedocumented in this encounter Care Teams Wide Area Network Engineer Relationship Specialty [place] [address] [address] [place] [address] PCP - General 07/04/19 [place] [address] [address] [place] [address] 11/16/18 Ernie Shaw MD [address] [facility] [address] [place] [address] Inorganic Chemical Technician Obstetrics and Gynecology 06/10/20 documented as of this encounter
--- OUTSIDE RECORDS SUMMARY | 2024-02-24 20:08 | XMS_ITS | Encounter Summary ---
Author Organization [facility] Address [address] [place] [address] Phone Care Team Providers Care Learning Program Manager Name Role Phone Huseyin Dangeol MD Unavailable [phone] Brian Mon MD Primary Care Provider + Ernie Shaw MD Unavailable Encounter Details Date Type Department Care Team (Late st Contact Info) Description 06/25/[address] [facility] Rheumatology [address] [facility] 2nd Floor [address] [place] [address] Lex Wagoner Social History Tobacco Use Types Packs/Day Years [...] encounter Miscellaneous Notes * Telephone Encounter - Marlene Gonzalez NP - 06/28/2020 11:12 AM CDT I did not send this info to her. The name of the practice is [facility]. She would need to call them and facilitate transfer. No need for you to do anything if she is the one that wants a second opinion * Telephone Encounter - Lex Wagoner - 06/28/2020 8:49 AM CDT Did you call her with her questions and did you tell her this or give me the number and I will * Telephone Encounter - Marlene Gonzalez NP - 06/25/2020 1:06 PM CDT She is not allowed to switch within [facility] but I can give her the info for the [facility] group at [facility] * Telephone Encounter - Lex Wagoner - 06/25/2020 1:03 PM CDT Pt is calling she is she stopped the AZA but she is having issues with the HCQ She has questions about meds FYI She doesn't like dr rodriguez or ashley and wants to switch to a different provider So I dont know how you handle that. She is having a bad time right now. documented in this encounter Plan of Treatment Not on file documented as of this encounter Visit Diagnoses Not on filedocumented in this encounter Care Teams Learning Program Manager Relationship Specialty [place] [address] [address] [facility] [place] [address] PCP - General 07/04/19 [place] [address] [address] [place] [address] 11/16/18 Ernie Shaw MD [address] [facility] [address] [place] [address] Brokerage Office Manager Obstetrics and Gynecology 06/10/20 documented as of this encounter
--- OUTSIDE RECORDS SUMMARY | 2024-02-24 20:08 | XMS_ITS | Encounter Summary ---
Author Organization [facility] Healthcare Address [address] [place] [address] Care Team Providers Care Technician Automatic Name Role Phone Huseyin Dangelo MD Unavailable [phone] Brian Mon MD Primary Care Provider + Ernie Shaw MD Unavailable [phone] Reason for Referral * Diagnostic Imaging (Routine) - Closed Specialty Diagnoses / Procedures Referred By Contac t Referred To Contact Diagnoses Gume disease (HCC) Lupus History of recurrent miscarriages Supervision of high-risk , unspecified trimester Procedures Ob Limited Iris Bird MD Phone: tel: fax: [facility] (All Locations) Referral ID Status Reason Start Date Expiration Date Visits Re quested Visits Authorized [id number] Closed 06/11/2020 07/11/2021 1 1 Reason for Visit * Diagnostic Imaging (Routine) - Closed Specialty Diagnoses / Procedures Referred By Contac t Referred To Contact Diagnoses Gaines[place] disease (HCC) Lupus History of recurrent miscarriages Supervision of high-risk , unspecified trimester Procedures Ob Limited Iris Bird MD Phone: tel: fax: [facility] (All Locations) Referral ID Status Reason Start Date Expiration Date Visits Re quested Visits Authorized [id number] Closed 06/11/2020 07/11/2021 1 1 Encounter Details Date Type Department Care Team (Latest Contact Info) Description 07/08/2020 2:15 PM CDT - 07/08/2020 11:59 PM CDT Hospital Encounter [facility] Ul[facility]ound [address], [address] [facility] [place] [address] Iris Bird MD [phone] [place] [address] [place] disease ([facility]/HCC); Lupus (CMS/[facility]); History of recurrent miscarriages; Supervision of high-risk , unspecified trimester Discharge [...] at Time of Discharge ALPRAZolam (XANAX) 0.25 mg tablet Take 0.25 mg by mouth 3 (three) times a day as needed 1 azaTHIOprine (IMURAN) 50 mg tablet Take 1 tablet (50 mg total) by mouth daily 30 tablet 1 06/14/2020 1 belimumab (Benlysta) auto-injector Inject 1 mL (200 mg total) under the skin every 7 days 4 Syringe 3 07/23/2019 1 bromocriptine (PARLODEL) 2.5 mg tablet Take 2.5 mg by mouth 2 (two) times a day 05/12/2020 1 busPIRone (BUSPAR) 7.5 mg tablet Take 7.5 mg by mouth 2 (two) times a day 06/17/2020 1 ergocalciferol (VITAMIN D) 50,000 unit capsule [...] by mouth daily 60 tablet 06/14/2020 1 hydrOXYzine (ATARAX) 25 mg tablet Take 1 tablet (25 mg total) by mouth 3 (three) times a day as needed for anxiety 90 tablet 06/23/2020 1 ipratropium (ATROVENT) 0.03 % nasal spray [...] capsule Take by mouth daily 06/01/2020 1 propranoloL (INDERAL) 10 mg tablet Take 10 mg by mouth 3 (three) times a day 03/26/2020 1 sertraline (ZOLOFT) 25 mg tablet Take 1 tablet (25 mg total) by mouth daily 30 tablet 5 06/11/2020 1 triamcinolone (KENALOG) 0.1 % cream Apply [...] LIMITED Schedule Routine, Read Routine (OP Routine) 07/08/2020 2:15 PM CDT Gainesville disease (CMS/HCC) Lupus (CMS/HCC) History of recurrent miscarriages Supervision of high-risk , unspecified trimester documented in this encounter Results * US Ob Limited (07/08/2020 2:15 PM CDT) Anatomical Region Laterality Modality Abdomen N/A Ultrasound 07/08/2020 2:59 PM CDT Narrative 07/08/2020 3:35 PM CDT There are no Discrete Measurement Components for this test result - Please see .pdf Procedure Note Moose Montoya MD - 07/08/2020 There are no Discrete Measurement Components for this test result - Pleasesee .pdf us Iris Bird MD IMG OB US PROCEDURES Final Result documented in this encounter Visit Diagnoses Diagnosis Gainesville disease (HCC) Glucocorticoid deficiency Lupus Systemic lupus erythematosus History of recurrent miscarriages Supervision of high-risk , unspecified trimester documented in this encounter Care Teams Technician Automatic Relationship Specialty [place] [address] [address] [place] [address] PCP - General 07/04/19 [place] [address] [address] [place] [address] 11/16/18 Ernie Shaw MD [address] [place] [address] [address] [place] [address] Electrical Assembler Obstetrics and Gynecology 06/10/20 documented as of this encounter
--- OUTSIDE RECORDS SUMMARY | 2024-02-24 20:08 | XMS_ITS | Encounter Summary ---
Author Organization [facility] [place] [employer] [facility] Address [address] [place] [address] Phone Care Team Providers Care Batch Mixer Operator Name Role Phone Huseyin Dangelo MD Unavailable [phone] Brian Mon MD Primary Care Provider + Ernie Shaw MD Unavailable [phone] Encounter Details Date Type Department Care Team (Late st Contact Info) Description 08/02/2020 Telephone [facility] Psychiatry [address] 2nd [address] [place] [address] Courtney June BS Social History [...] Telephone Encounter - Courtney June BS - 08/02/2020 11:16 AM CDT [facility]CCESSFUL Phone Contact By SAMSON Benitez to Carito [place] 1990 Objective of Call: Follow up on initial referral Outcome:Successful Contact Notes, if applicable: Coordinator f/u to get pt scheduled for therapy. Pt states she doesn't have her schedule for work yet therefore, she will call me back on tomorrow. Coordinator gave pt contact information to reach back out for scheduling. Pt also states she prefers to have telehealth appt overface to face. SAMSON Benitez [facility] Department of Psychiatry [phone] documented in this encounter Plan of Treatment Not on file documented as of this encounter Visit Diagnoses Not on filedocumented in this encounter Care Teams Batch Mixer Operator Relationship Specialty [place] [address] [address] [facility] [place] [address] PCP - General 07/04/19 [place] [address] [address] [place] [address] 11/16/18 Ernie Shaw MD [address] [place] [address] [address] [place] [address] Transcribing Machine Operator Obstetrics and Gynecology 06/10/20 documented as of this encounter
--- OUTSIDE RECORDS SUMMARY | 2024-02-24 20:08 | XMS_ITS | Encounter Summary ---
Author Organization [facility] Healthcare Address [address] [place] [address] Care Team Providers Care Computer Meteorologist Name Role Phone Huseyin Dangelo MD Unavailable [phone] Brian Mon MD Primary Care Provider + Ernie Shaw MD Unavailable [phone] Encounter Details Date Type Department Care Team (Late st Contact Info) Description 07/30/2020 Telephone [facility] [address] [place] [id number] Lydia Juarez MD [address] [facility] [phone] [place] [address] Social History Tobacco Use Types Packs/Day Years [...] encounter Miscellaneous Notes * Telephone Encounter - Lydia Juarez MD - 07/30/2020 1:38 PM CDT Returned pt call. States was seen in ED for fever and fatigue. Negative flu, strep and COVID. Feverthis AM, now normal temp. No other symptoms (cough, SOB, CP, emesis, etc). Recommend continues expectant management with Tylenol, hydration, rest. Reviewed precautions and indications to present to ED or triage. Would like note for work, which we will provide. Patient also states she went to [facility] near her home and was told she has a placenta previa, which made her nervous. I discussed that this is difficult to comment on without reviewing the images. We reviewed what a previa is and implications, I recommended deferring any placental location imaging until at least the second trimester. Lydia Juarez MD, PhD Maternal Medicine documented in this encounter Plan of Treatment Not on file documented as of this encounter Visit Diagnoses Not on filedocumented in this encounter Care Teams Computer Meteorologist Relationship Specialty [place] [address] [address] [facility] [place] [address] PCP - General 07/04/19 [place] [address] [address] [place] [address] 11/16/18 Ernie Shaw MD [address] [place] [address] [address] [place] [address] Ventilating Engineer Obstetrics and Gynecology 06/10/20 documented as of this encounter
--- OUTSIDE RECORDS SUMMARY | 2024-02-24 20:08 | XMS_ITS | Encounter Summary ---
Author Organization [facility] Address [address] [place] [address] Phone Care Team Providers Care Masonry Supervisor Name Role Phone Huseyin Dangelo MD Unavailable [phone] Brian Mon MD Primary Care Provider + Ernie Shaw MD Unavailable [phone] Encounter Details Date Type Department Care Team (Late st Contact Info) Description 07/22/2020 Telephone [facility] Maternal- Medicine [address] [facility] 7[address] [place] [address] Fariba Chin RN Social History [...] Telephone Encounter - Fariba Chin RN - 07/22/2020 10:30 AM CDT I attempted to call Carito to let her know we recommend she undergo COVID testing, I will order the test and which location would she like to go to. She didn't answer and I left a message asking for a return call and left my direct phone number. I will attempt to send a my chart message as well. * Telephone Encounter - Fariba Chin RN - 07/22/2020 10:29 AM CDT Thank you. I will let her know and order the testing. Fariba * Telephone Encounter - Silas Lazo MD - 07/22/2020 9:56 AM CDT Yes, I would recommend COVID testing. * Telephone Encounter - Fariba Chin RN - 07/22/2020 9:28 AM CDT Carito Madison called stating she doesn't feel well and has Cold/Flu like symptoms. I asked if sheas been tested for COVID or around anyone she knows is positive. She stated she has not been aroundanyone that she knows that is positive but she is around a lot of people daily. She states that she got the first dose of the vaccine before she found out she was . However, she was instructed by her primary OB not get the second dose. I explained that I would reach out to our providers to ask if they would like her to get tested. She asked if there was anything she could take over the counter for her cold symptoms, Stuffy nose, Swollen eyes, headache for 3 days, fatigue and feels warm with chills but when she takes her temp it is normal. I told her I will send her the medication list through my chart. documented in this encounter Plan of Treatment Not on file documented as of this encounter Visit Diagnoses Not on filedocumented in this encounter Care Teams Masonry Supervisor Relationship Specialty [place] [address] [address] [place] [address] PCP - General 07/04/19 [place] [address] [address] [facility] [place] [address] 11/16/18 Ernie Shaw MD [address] [place] [address] [address] [place] [address] Obstetrics/Gynecology Nurse Obstetrics and Gynecology 06/10/20 documented as of this encounter
--- OUTSIDE RECORDS SUMMARY | 2024-02-24 20:08 | XMS_ITS | Encounter Summary ---
Author Organization [facility] Healthcare Address [address] [place] [address] Care Team Providers Care Complaint Specialist Name Role Phone Huseyin Dangelo MD Unavailable [phone] Brian Mon MD Primary Care Provider + Ernie Shaw MD Unavailable [phone] Encounter Details Date Type Department Care Team (Late st Contact Info) Description 06/24/2020 11:35 AM CDT Ancillary Procedure [address] [address] Aissatou Espinoza MD [address] [facility] [phone] [place] [address] Social History Tobacco Use Types Packs/Day Years [...] Diagnosis Comments US OB LIMITED IP Routine 06/24/2020 11:30 AM CDT Supervision of high-risk , unspecified trimester documented in this encounter Results * US Ob Limited (06/24/2020 11:30 AM CDT) Anatomical Region Laterality Modality Abdomen N/A Ultrasound Study GA Study Date Study MANE Working MANE (Source) Feta l Weight (Method) 06/24/2020 01/27/2021 (Alternate MANE Entry) Result Name Value Comments Amniotic fld cm Heart Rate bpm CRL cm Sac Diameter cm Narrative 06/24/2020 11:31 AM CDT CRL c/w 8w2d FHR 180s I have reviewed the images and documentation by the resident and agree with above. Aissatou Espinoza MD us Aissatou Espinoza MD IMG OB US PROCEDURES Final Res ult documented in this encounter Visit Diagnoses Not on filedocumented in this encounter Care Teams Complaint Specialist Relationship Specialty [place] [address] [address] [place] [address] PCP - General 07/04/19 [place] [address] [address] [place] [address] 11/16/18 Ernie Shaw MD [address] [place] [address] [address] [place] [address] Fire Operations Forester Obstetrics and Gynecology 06/10/20 documented as of this encounter
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
--- OUTSIDE RECORDS SUMMARY | 2024-02-24 20:08 | XMS_ITS | Encounter Summary ---
Author Organization [facility] Healthcare Address [address] [place] [address] Care Team Providers Care Iron Carrier Name Role Phone Huseyin Dangelo MD Unavailable [phone] Brian Mon MD Primary Care Provider + Ernie Shaw MD Unavailable [phone] Reason for Visit * Reason Comments Abdominal Cramping Vaginal Bleeding - Encounter Details Date Type Department Care Team (Late st Contact Info) Description 08/02/2020 6:19 PM CDT - 08/02/2020 7:49 PM CDT Emergency [facility] Emergency Department [address] [place] [address] Svetlana Samano MD [address] [place] [address] Vaginal bleeding in , second trimester (Primary Dx) Discharge Disposition: Discharge to [...] Sign Reading Time Taken Comments Blood Pressure 140/94 08/02/2020 6:17 PM CDT Pulse 91 08/02/2020 6:17 PM CDT Temperature 36.4 ??C (97.5 ??F) 08/02/2020 6:17 PM CD T Respiratory Rate 18 08/02/2020 6:17 PM CDT Oxygen Saturation 98% 08/02/2020 6:17 PM CDT Inhaled Oxygen Concentration - - Weight 78.5 kg (173 lb) 08/02/2020 6:17 PM CDT Height 157.5 cm (5' 2 ) 08/02/2020 6:17 PM CDT Body Mass Index 31.64 08/02/2020 6:17 PM CDT documented in this encounter Discharge Diagnoses Diagnosis Antepartum hemorrhage, unspecified, second trimester - ANTEPARTUM HEMORRHAGE, UNSPECIFIED, SECOND TRIMESTER 15 weeks gestation of - 15 WEEKS GESTATION OF Other specified related conditions, second trimester - OTHER SPECIFIED RELATED CONDITIONS, SECOND TRIMESTER Systemic lupus erythematosus, unspecified (HCC) - SYSTEMIC LUPUS ERYTHEMATOSUS, UNSPECIFIED Other specified diseases and conditions complicating [...] OTHER MENTAL DISORDERS COMPLICATING , SECOND TRIMESTER Major depressive disorder, single episode, unspecified - MAJOR DEPRESSIVE DISORDER, SINGLE EPISODE, UNSPECIFIED Personal history of nicotine dependence - PERSONAL HISTORY OF NICOTINE DEPENDENCE documented in this encounter Discharge Instructions * Attachments The following attachments cannot be sent through Care Everywhere. * Threatened Miscarriage (AfterCare(R) Instructions(ER/ED)) (Bermudian) * Placenta Previa (AfterCare(R) Instructions(ER/ED)) (Bermudian) documented in this encounter Medications at Time [...] documented in this encounter ED Notes * Svetlana Samano MD - 08/02/2020 7:38 PM CDT HPI Chief Complaint Patient presents with ??? Abdominal Cramping ??? Vaginal Bleeding - Carito is a 30 y/o F, former smoker at 14 w and 5 d today per ultrasound done on 2020 who comes to the ER today for abdominal pain and vaginal bleed. The patient states this started earlier at work today. She is also complaining of constipation. She notes when she went to use the restroom she had a moderate amount of bright red blood that she noticed in the toilet. She is complaining of abdominal cramps. Complains of mild nausea. No recent vomiting fevers or chills. Patient hasa complicated past OB history as well as medical history. She has multiple medical issues includingAddison's disease as well as lupus and seizure disorder, she is on several medications for these con ditions. She also has a history of 2 miscarriages in the past the latest 1 at 16 weeks for which she required emergent surgery due to severe hemorrhage. Her OB is at [facility] she sees high-risk OB there. Patient was admitted at [facility] earlier in the for dizziness she was also seen at [facility] 5 days ago for abdominal pain. She has an appointment with her OBGYN tomorrow. Patient History: Patient Active Problem List Diagnosis Date Noted ??? Marginal insertion of umbilical cord affecting management of mother in second trimester 08/26/2020 ??? Placenta previa specified as without hemorrhage in second trimester 08/26/2020 ??? Attention deficit hyperactivity disorder (ADHD), combined type 07/15/2020 ??? Generalized anxiety disorder 06/15/2020 ??? Supervision of high-risk , unspecified trimester 06/10/2020 ??? Secondary adrenal insufficiency (CMS/HCC) 06/03/2020 ??? Right carpal tunnel syndrome 05/12/2020 ??? Bilateral chronic serous otitis media 03/31/2020 ??? Adrenal insufficiency (CMS/HCC) 03/04/2020 ??? Microcytic anemia 12/24/2019 ??? Joint pain 12/24/2019 ??? Anti-VETERINARY PARASITOLOGIST antibodies present 12/24/2019 ??? Epilepsy undetermined as to focal or generalized (CMS/HCC) 08/26/2019 ??? Nausea and vomiting 07/16/2019 ??? Epigastric pain 07/16/2019 ??? Gastroesophageal reflux disease 07/16/2019 ??? Diarrhea 07/16/2019 ??? Abdominal pain 07/16/2019 ??? Liver lesion 07/16/2019 ??? BMI 29.0-29.9,adult 07/16/2019 ??? Nausea with vomiting 07/16/2019 ??? AP (abdominal pain) 07/16/2019 ??? Tachycardia ??? Cough 05/24/2019 ??? Lupus (CMS/HCC) 05/24/2019 ??? Miscarriage 05/24/2019 ??? Laceration of [...] ??? Rheumatoid arthritis (CMS/HCC) ??? Seizures (CMS/HCC) Past Surgical History: Procedure Laterality Date [...] Currently Types: Marijuana Comment: smoked last night Social History Social History Narrative ??? Not on file Review of Systems Review of Systems Constitutional: Negative. Negative for activity change, appetite change, chills, diaphoresis, fatigue and fever. HENT: Negative. Negative for congestion, drooling, rhinorrhea and sore throat. Eyes: Negative. Negative for photophobia, redness and visual disturbance. Respiratory: Negative. Negative for cough, chest tightness and shortness of breath. Cardiovascular: Negative. Negative for chest pain, palpitations and leg swelling. Gastrointestinal: Positive for constipation. Negative for abdominal pain, anal bleeding, blood in stool, diarrhea, nausea and vomiting. Endocrine: Negative. Genitourinary: Positive for vaginal bleeding. Negative for decreased urine volume, difficulty urinating, dysuria, frequency, hematuria and urgency. Musculoskeletal: Negative. Negative for arthralgias and myalgias. Skin: Negative. Negative for rash and wound. Allergic/Immunologic: Negative for immunocompromised state. Neurological: Negative. Negative for dizziness, weakness and headaches. Hematological: Negative. Does not bruise/bleed easily. Psychiatric/Behavioral: Negative. Negative for confusion. All other systems reviewed and are negative. Physical Exam ED Triage Vitals [08/02/20 1817] Temp Pulse Resp BP SpO2 36.4 ??C (97.5 ??F) 91 18 140/94 98 % Temp src Heart Rate Source Patient Position BP Location FiO2 (%) -- -- -- -- -- Physical Exam Vitals and nursing note reviewed. Constitutional: General: She is not in acute distress. Appearance: She is well-developed. She is not ill-appearing, toxic-appearing or diaphoretic. HENT: Head: Normocephalic and atraumatic. Eyes: General: No scleral icterus. Extraocular Movements: Extraocular movements intact. Conjunctiva/sclera: Conjunctivae normal. Pupils: Pupils are equal, round, and reactive to light. Neck: Thyroid: No thyromegaly. Vascular: No JVD. Trachea: No tracheal deviation. Cardiovascular: Rate and Rhythm: Normal rate. Pulmonary: Effort: Pulmonary effort is normal. No respiratory distress. Abdominal: Palpations: Abdomen is soft. Tenderness: There is no abdominal tenderness. There is no guarding. Comments: Gravid abdomen Musculoskeletal: General: Normal range of motion. Cervical back: Normal range of motion and neck supple. Right lower leg: No edema. Left lower leg: No edema. Skin: General: Skin is warm and dry. Neurological: General: No focal deficit present. Mental Status: She is alert and oriented to person, place, and time. Mental status is at baseline. Motor: No abnormal muscle tone. Psychiatric: Mood and Affect: Mood normal. Behavior: Behavior normal. Thought Content: Thought content normal. Judgment: Judgment normal. MDM MDM heart tones. In the 170s which is reassuring I told the patient and her to monitor bleeding as well as cramping return if bleeding worsens otherwise follow-up with OBGYN in the morning as scheduled. Final diagnoses: Vaginal bleeding in , second trimester There may be grammatical errors in this note due to use of voice recognition software. DISPOSITION:DISCHARGED Svetlana Samano MD 08/02/202005 Svetlana Samano MD 09/07/20618 * Sylvain Koch RN - 08/02/2020 6:15 PM CDT Patient arrives to the Ed with complaints of vaginal bleeding while 15 weeks . Patient had a miscarriage at 16 weeks and stated she delivered the baby in the toilet and is scared this will happen again. Patient denies any clots at this time. Patient states this is her 3rd with 2 previous miscarriages. Patient states she has placenta previa and states her OB is Dr mauro butler at [facility] documented in this encounter Miscellaneous Notes * ED Triage Provider Note - Taiwo Rodriguez PA - 08/02/2020 6:21 PM CDT Rapid Medical Evaluation: S - 30-year-old 16 week female presents with chief complaint of vaginal bleeding and pelvic cramping. Onset this afternoon. Patient states she has a history of miscarriages. Denies nausea orvomiting. States she has been noting small amount of bleeding whenever she wipes after urinating. O - CONSTITUTIONAL: Well-appearing; well-nourished; in no apparent distress HEAD: Normocephalic; atraumatic EYES: PERRL; conjunctiva and sclera are clear bilaterally. CARD: Regular rhythm. Rate WNL. RESP: Normal respiratory effort; breath sounds clear and equal bilaterally. ABD: Normal bowel sounds; non-distended; suprapubic tenderness. MUSCULOSKELETAL: Normal ROM in all four extremities. SKIN: warm; dry; good turgor. A - bleeding during P - IV, labs,. To go to main ER when room available. Voice recognition software [employer] Direct was used to dictate and transcribe this document. Shaft Repairer variances may occur. Despite proofreading, typographical errors may occur. documented in this encounter Plan of Treatment Not on file documented as of this encounter Procedures Procedure Name Priority Date/Time Associated Diagnosis Comments EGFR STAT 08/02/2020 6:30 PM CDT DIFFERENTIAL AUTO STAT 08/02/2020 6:3 0 PM CDT URINALYSIS AND REFLEX TO MICROSCOPIC AND CULTURE STAT 08/02/2020 6:30 PM CDT CBC WITH AUTO DIFFERENTIAL STAT 08/02/2020 6:30 PM CDT ABO/RH STAT 08/02/2020 6:30 PM CDT ANTIBODY SCREEN STAT 08/02/2020 6:30 PM CDT TYPE AND SCREEN STAT 08/02/2020 6:30 PM CDT HCG, BLOOD, QUANTITATIVE STAT 08/02/2020 6:30 PM CDT COMPREHENSIVE METABOLIC PANEL STAT 08/02/2020 6:30 PM CDT documented in this encounter Results * eGFR (08/02/2020 6:30 PM CDT) eGFR 148 mL/min/1.7 3 m2 [facility] ([place]) Comment: [...] was last reviewed 2020 Blood specimen (specimen) 08/02/2020 6:30 PM CDT 08/02/2020 6:31 PM CDT us Taiwo [facility] LAB BLOOD ORDERABLES Final R esult [facility] ([place]) 1 [facility] Department [place] [address] * (ABNORMAL) Differential, auto (08/02/2020 6:30 PM CDT) Neutrophil abs 8.6(H) 1.7 - 6.5 K/cumm [facility] ([place]) Imm gran abs 0.0 0.0 - 0.1 K/cumm [facility] ([place]) Lymphocyte abs 1.1 0.8 - 3.3 K/cumm [facility] ([place]) Monocyte abs 0.5 0.2 - 0.8 K/cumm [facility] ([place]) Eosinophil abs 0.1 0.0 - 0.5 K/cumm [facility] ([place]) Basophil abs 0.0 0.0 - 0.1 K/cumm [facility] ([place]) Neutrophil pct 83.0 % [facility] ([place]) Comment: Interpretive [...] was last revised on 2017. Lymphocyte pct 10.9 % [facility] ([place]) Comment: Interpretive Data Percent cell count reference ranges are not reported, since discordance with absolute values may lead to misinterpretation of CBC data. Current Interpretive Data was last revised on 2017. Monocyte pct 5.1 % [facility] ([place]) Comment: Interpretive Data Percent cell count reference ranges are not reported, since discordance with absolute values may lead to misinterpretation of CBC data. Current Interpretive Data was last revised on 2017. Eosinophil pct 0.5 % [facility] ([place]) Comment: Interpretive [...] last revised on 2017. Blood specimen (specimen) 08/02/2020 6:30 PM CDT 08/02/2020 6:31 PM CDT Taiwo [facility]LE LAB BLOOD ORDERABLES Final R esult Performing Organization Address City/[facility]/ZIP Co de Phone Number [facility] ([place]) 1 [facility] [employer] [place] [address] * Antibody screen (08/02/2020 6:30 PM CDT) Jose Antonio, indirect, Gel Interpretation Negative ABSC [facility] ([place]) Blood specimen (specimen) 08/02/2020 6:30 PM CDT 08/02/2020 6:31 PM CDT Narrative [facility] ([place]) - 08/02/2020 7:34 PM CDT Has the patient had Daratumumab or Isatuximab in the past 6 months?->Unknown Taiwo [facility] LAB BLOOD BANK TEST ORDERABL ES Final Result [facility] ([place]) 1 [facility] [employer] [place] [address] * ABO/Rh (08/02/2020 6:30 PM CDT) ABO/Rh A Positive [facility] ([place]) Blood specimen (specimen) 08/02/2020 6:30 PM CDT 08/02/2020 6:31 PM CDT Narrative [facility] ([place]) - 08/02/2020 7:34 PM CDT Has the patient had Daratumumab or Isatuximab in the past 6 months?->Unknown Taiwo [facility]LE LAB BLOOD BANK TEST ORDERABL ES Final Result [facility] ([place]) 1 [facility] Department [place] [address] * Urinalysis reflex to microscopic and culture Urine (08/02/2020 6:30 PM CDT) Color, ur Yellow Yellow [facility] [...] culture not met. [facility] ([place]) Urine 08/02/2020 6:30 PM CDT 08/02/2020 6:31 PM CDT Narrative [facility] ([place]) - 08/02/2020 6:39 PM CDT ?? Urine pH is affected by diet, medications, systemic acid-base disturbances, and renal tubular function. ??pH may affect urinary stone formation. ??For example, urine pH below 6.0 may help reduce the tendency for calcium phosphate stones and pH greater than 6.0 may reduce the tendency for uric acid stone formation. Source: [email or web address].pl. Last revised 03-08-2017 Tai[facility] LAB MICROBIOLOGY - GENERAL O RDERABLES Final Result [facility] ([place]) 1 [facility] Department [place] [address] * (ABNORMAL) Comprehensive metabolic panel (08/02/2020 6:30 PM CDT) Sodium 136 135 - 145 mmol/L [facility] ([place]) Potassium, pl 3.6 3.3 - 4.9 mmol/L [facility] ([place]) Chloride 102 97 - 110 mmol/L [facility] ([place]) CO2 21(L) 22 - 32 mmol/L [facility] ([place]) Anion gap 12 2 - 15 mmol/L [facility] ([place]) BUN 6(L) 8 - 25 mg/dL [facility] ([place]) Creatinine 0.35(L) 0.60 - 1.10 mg/dL [facility] ([place]) [...] 1.2 mg/dL [facility] ([place]) Protein, pl 6.6 6.5 - 8.5 g/dL [facility] ([place]) Albumin 3.6 3.5 - 5.0 g/dL [facility] ([place]) Alk phos 48 40 - 130 Units/L [facility] ([place]) ALT 12 7 - 45 Units/L [facility] ([place]) AST 13 10 - 45 Units/L [facility] ([place]) Blood specimen (specimen) 08/02/2020 6:30 PM CDT 08/02/2020 6:31 PM CDT Taiwo [facility]LE LAB BLOOD ORDERABLES Final R esult [facility] ([place]) 1 [facility] [employer] [place] [address] * (ABNORMAL) CBC with auto differential (08/02/2020 6:30 PM CDT) WBC 10.4(H) 3.8 - 9.9 K/cumm [facility] ([place]) Hgb 11.5(L) 11.9 - 15.5 g/dL [facility] ([place]) Hct 33.7(L) 35.6 - 45.5 % [facility] ([place]) Plt 260 150 - 400 K/cumm [facility] ([place]) MPV 9.4 9.1 - 12.3 fL [facility] ([place]) RBC 3.79(L) 3.90 - 5.20 M/cumm [facility] ([place]) MCV 88.9 81.3 - 96.4 fL [facility] ([place]) MCH 30.3 27.1 - 33.3 pg [facility] ([place]) MCHC 34.1 32.3 - 35.7 g/dL [facility] ([place]) RDW CV 12.9 11.1 - 14.9 % [facility] ([place]) RDW SD 41.2 35.7 - 48.1 fL [facility] ([place]) NRBC abs 0.00 0.00 - 0.01 K/cumm [facility] ([place]) Blood specimen (specimen) 08/02/2020 6:30 PM CDT 08/02/2020 6:31 PM CDT Taiwo [facility]LE LAB BLOOD ORDERABLES Final R esult [facility] ([place]) 1 [facility] [place] [address] * (ABNORMAL) hCG, blood, quantitative (08/02/2020 6:30 PM CDT) hCG, quant 74,608.0( H) 0.0 - 5.0 IUnits/L [facility] ([facility]) Comment: Interpretive Data Non- Female premenopausal: < or = 5.0 IUnits/L Men: < 5.0 IUnits/L Weeks of Gestation ? Reference Interval ?? 3 to 6 ? 5.8-31,795 IUnits/L ?? 7 to 10 ? 3,697-186,977 IUnits/L ??12 to 15 ?27,832- 70,791 IUnits/L ??16 to 18 ? 9,040- 58,179 IUnits/L Current Interpretive Data was last revised on 2017. Blood specimen (specimen) 08/02/2020 6:30 PM CDT 08/02/2020 6:31 PM CDT Taiwo [facility]LE LAB BLOOD ORDERABLES Final R esult [facility] ([facility]) 1 [facility] Department [place] [address] documented in this encounter Visit Diagnoses Diagnosis Vaginal bleeding in , second trimester- Primary documented in this encounter Care Teams Iron Carrier Relationship Specialty [place] [address] [address] [place] [address] PCP - General 07/04/19 [place] [address] [address] [place] [address] 11/16/18 Ernie Shaw MD [address] [facility] [address] [place] [address] Levi Maker Obstetrics and Gynecology 06/10/20 documented as of this encounter
--- OUTSIDE RECORDS SUMMARY | 2024-02-24 20:08 | XMS_ITS | Encounter Summary ---
Author Organization [facility] Address [address] [place] [address] Phone Care Team Providers Care Associate Partner Name Role Phone Huseyin Dangelo MD Unavailable [phone] Brian Mon MD Primary Care Provider + Ernie Shaw MD Unavailable [phone] Encounter Details Date Type Department Care Team (Late st Contact Info) Description 07/05/2020 Telephone [facility] Scheduling [address] [place] [address] Carolina Delarosa MD [address] [place], [place] [id number] Social History Tobacco Use Types Packs/Day Years [...] encounter Miscellaneous Notes * Telephone Encounter - Zeynep Caraballo CPhT - 07/05/2020 10:38 AM CDT ----- Message from Nallely Griffiths CMA sent at 07/05/2020 9:07 AM CDT ----- Regarding: RE: Reschedule patient from telehealth visit This is a Dr Delarosa pt. She only follow Dr Delarosa and was seen on 06/[address] Delarosa was out of office. Ispoke with the patient before my Vacation 2 weeks ago and she was wanting to see another provider in the office. I discussed in detail with the patient our policy on our call. She is aware Dr Delarosa would be out of office until 07/06. I will discuss with Dr Delarosa and talk with the patient verbally. If she calls please forward call to me. Thanks ----- Message ----- From: Zeynep Caraballo CPhT Sent: 06/30/2020 8:46 AM CDT To: Nallely Griffiths CMA, # Subject: Reschedule patient from telehealth visit Can you please let me know who you would like this patient to schedule their return visit with? Shehas been seen by [place], and [facility]. Thanks so much for your feedback. documented in this encounter Plan of Treatment Not on file documented as of this encounter Visit Diagnoses Not on filedocumented in this encounter Care Teams Associate Partner Relationship Specialty [place] [address] [address] [place] [address] PCP - General 07/04/19 [place] [address] [address] [place] [address] 11/16/18 Ernie Shaw MD [address] [place] [address] [address] [facility] [place] [address] Color Developer Obstetrics and Gynecology 06/10/20 documented as of this encounter
--- OUTSIDE RECORDS SUMMARY | 2024-02-24 20:08 | XMS_ITS | Encounter Summary ---
Author Organization [facility] Healthcare Address [address] [place] [address] Care Team Providers Care Environmental Health Physician Name Role Phone Huseyin Dangelo MD Unavailable [phone] Brian Mon MD Primary Care Provider + Ernie Shaw MD Unavailable [phone] Reason for Visit * Reason Onset Date Comments Medication 06/24/2020 Encounter Details Date Type Department Care Team (Late st Contact Info) Description 06/24/[address] [address] Leti Russ, cemetery keeper Social History Tobacco Use Types Packs/Day Years [...] Progress Notes * Leti Russ RN - 06/24/2020 6:40 AM CDT Direct call from pt. Her name and were verified. She is calling this morning with questions about her medication she is taking. She states she was seen in the [facility] yesterday. She states she was onXanax then switched to Zoloft and is currently on Busbar. She states she does not feel like herselfand is feeling very anxious and would like to take Xanax again. She states that she took .25 of Xanax and feels so much better. I told her not to take any medication that her doctor's are not aware of her taking. I told her I will send this message to the [facility] group and she will send a message via [employer] to discuss her medications with her doctors. documented in this encounter Plan of Treatment Not on file documented as of this encounter Visit Diagnoses Not on filedocumented in this encounter Care Teams Environmental Health Physician Relationship Specialty [place] [address] [address] [facility] [place] [address] PCP - General 07/04/19 [place] [address] [address] [facility] [place] [address] 11/16/18 Ernie Shaw MD [address] [place] [address] [address] [address] Registered Dental Hygienist Obstetrics and Gynecology 06/10/20 documented as of this encounter
--- OUTSIDE RECORDS SUMMARY | 2024-02-24 20:08 | XMS_ITS | Encounter Summary ---
Author Organization [facility] Address [address] [place] [address] Phone Care Team Providers Care Explosives Worker Name Role Phone Huseyin Dangelo MD Unavailable [phone] Brian Mon MD Primary Care Provider + Ernie Shaw MD Unavailable [phone] Encounter Details Date Type Department Care Team (Late st Contact Info) Description 07/28/2020 Telephone [facility] Maternal- Medicine [address] [facility] 7th [address] [place] [address] Fariba Cihn RN Social History Tobacco Use Types Packs/Day [...] Encounter - Fariba Chin RN - 07/28/2020 3:11 PM CDT Carito called and stated she found out her insurance lapsed and she will not have coverage until September. She stated her next appointment with [facility] and ultrasound in 08/26. She asked if she can still come to that appointment and how it would work. I explained that it would be best for her to speak with the financial counselor. I put her on a brief hold and called Monica. I was able to talk to Dayna, the other financial counselor. She stated she would need to look into what was going on and see what options she has. She stated she would call her back, more than likely tomorrow. I thanked Dayna for her help. I picked up the line and let Carito know that Dayna would look into it and may have to talk to her mortuary operations manager and she would call her back. She verbalized understanding. I asked she was able to go to the urgent care for her sore throat. She stated that she was going togo today. documented in this encounter Plan of Treatment Not on file documented as of this encounter Visit Diagnoses Not on filedocumented in this encounter Care Teams Explosives Worker Relationship Specialty [place] [address] [address] [place] [address] PCP - General 07/04/19 [place] [address] [address] [place] [address] 11/16/18 Ernie Shaw MD [address] [facility] [address] [place] [address] Fleet Sales Manager Obstetrics and Gynecology 06/10/20 documented as of this encounter
--- OUTSIDE RECORDS SUMMARY | 2024-02-24 20:08 | XMS_ITS | Encounter Summary ---
Author Organization [facility] [facility] Address [address] [place] [address] Phone Care Team Providers Care Revenue Enforcement Agent Name Role Phone Huseyin Dangelo MD Unavailable [phone] Brian Mon MD Primary Care Provider + Ernie Shaw MD Unavailable [phone] Encounter Details Date Type Department Care Team (Late st Contact Info) Description 07/20/2020 Telephone [facility] Psychiatry [address] [facility] 2nd [address] [place] [address] Courtney June BS Social History [...] Telephone Encounter - Courtney June BS - 07/20/2020 3:02 PM CDT Behavioral Health Service ATTEMPTED Phone Contact By SAMSON Benitez to Carito [place] 1990 Objective of Call: Follow up on initial referral Outcome:Left Voicemail with standard instructions to call [facility] Office at [phone] Notes, if applicable: Coordinator attempted to reach pt to schedule a therapy visit as pt already sees Dr. Cruz. Someone answered pts phone and stated that pt is currently in the hospital and wasunavailable. Coordinator advised that she would send a written message so that pt would have contact information. Person answering also stated they would have pt to call me. SAMSON Benitez Behavioral Health Service [facility] Department of Psychiatry [phone] documented in this encounter Plan of Treatment Not on file documented as of this encounter Visit Diagnoses Not on filedocumented in this encounter Care Teams Revenue Enforcement Agent Relationship Specialty [place] [address] [place] [address] PCP - General 07/04/19 [place] [address] [place] [address] 11/16/18 Ernie Shaw MD [address] [place] [address] [address] [facility] [place] [address] Supervisor Maintenance And Custodians Obstetrics and Gynecology 06/10/20 documented as of this encounter
--- OUTSIDE RECORDS SUMMARY | 2024-02-24 20:09 | XMS_ITS | Encounter Summary ---
Author Organization [facility] Healthcare Address [address] [place] [address] Care Team Providers Care Folder Gluer Operator Name Role Phone Huseyin Dangelo MD Unavailable [phone] Brian Mon MD Primary Care Provider + Ernie Shaw MD Unavailable [phone] Reason for Visit * Reason Onset Date Comments Incoming Call 06/10/2020 severe cr amping in early Encounter Details Date Type Department Care Team (Late st Contact Info) Description 06/10/2020 Nurse Triage [address] [address] No, Physician Social History Tobacco Use Types [...] Telephone Encounter - Amy Rodriges RN - 06/10/2020 7:27 AM CDT Patient [facility] concerning severed LBP and abdominal cramping started yesterday and hasgotten worse.Was seen in [facility] yesterday. Has not had any bleeding. IUP confirmed with heart motion 12/05. Denies bleeding, passing tissue. Patient wants D&C since this is what happened last time and the doctor told her she almost . 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 Patient declines home care and comfort measures and is coming to [facility]. Has someone to drive her. Reason for Disposition ??? [1] Abdomen pain is main symptom and [2] NO vaginal bleeding in past 24 hours ??? Followed an abdomen (stomach) injury Answer Assessment - Initial Assessment Questions 1. DIAGNOSIS CONFIRMATION: When was the threatened miscarriage (threatened ) diagnosed? By whom? I was in [facility] yesterday and I think I am miscarrying. 2. ULTRASOUND: Was an ultrasound performed at that time? If so, Do you know what it showed? IUP with +FHTs 3. : Do you know how many weeks or months you are? When was the first day of your last normal menstrual period? 7 maybe. 4. MAIN CONCERN: What is your main concern right now? What questions do you have? I have severe cramping. It's so bad I couldn't sleep. Nothing helps. This is what happened last time. I never had bleeding but almost . Can I come in for a D&C? 5. VAGINAL BLEEDING: Describe the bleeding that you are having. How much bleeding is there? - SPOTTING: spotting or pinkish / brownish mucous discharge; 1-2 pads a day - MILD: less than 1 pad / hour; similar to mild menstrual bleeding - MODERATE: 1-2 pads / hour; small-medium blood clots (e.g., pea, grape, small coin) - SEVERE: soaking 2 or more pads/hour; bleeding not contained by pads or continuous red blood from vagina; large blood clots (e.g., golf ball, large coin) none 6. ABDOMINAL PAIN: Do you have any abdominal pain? If present, ask: How bad is it? (e.g., Scale1-10; mild, moderate, or severe) - MILD (1-3): doesn't interfere with normal activities, abdomen soft and not tender to touch - MODERATE (4-7): interferes with normal activities or awakens from sleep, tender to touch - SEVERE (8-10): excruciating pain, doubled over, unable to do any normal activities 10/10 cramps and low back pain. 7. HEMODYNAMIC STATUS: Are you weak or feeling lightheaded? If so, ask: Can you stand and walk normally? yes, but my back is so painful 8. OTHER SYMPTOMS: What other symptoms are you having with the bleeding? (e.g., passed tissue, vaginal discharge, fever, menstrual-type cramps, nausea, vomiting) none Protocols used: - THREATENED MISCARRIAGE FOLLOW-UP [id number], - ABDOMINAL PAIN LESS THAN 20 WEEKS [id number] documented in this encounter Plan of Treatment Not on file documented as of this encounter Visit Diagnoses Not on filedocumented in this encounter Care Teams Folder Gluer Operator Relationship Specialty [place] [address] [address] [place] [address] PCP - General 07/04/19 [place] [address] [address] [facility] [place] [address] 11/16/18 Ernie Shaw MD [address] [place] [address] [address] [place] [address] Denial Management Representative Obstetrics and Gynecology 06/10/20 documented as of this encounter
--- OUTSIDE RECORDS SUMMARY | 2024-02-24 20:09 | XMS_ITS | Encounter Summary ---
Author Organization [facility] [employer] [facility] Address [address] [place] [address] Phone Care Team Providers Care Plsql Developer Name Role Phone Huseyin Dangelo MD Unavailable [phone] Brian Mon MD Primary Care Provider + Ernie Shaw MD Unavailable [phone] Reason for Visit * Reason Onset Date Comments medication changes 06/17/2020 Encounter Details Date Type Department Care Team (Late st Contact Info) Description 06/17/2020 Telephone [facility] Maternal- Medicine [address] [place] [address] Health 7th Floor [address] [place] [address] Leti Ricks medication changes Social History Tobacco Use Types Packs/Day Years [...] * Telephone Encounter - Leti Ricks - 06/17/2020 3:12 PM CDT Spoke with pt via phone after she called with concerns about feeling dizzy and lightheaded since starting the Zoloft. She wonders if this is normal with this medication. She reports that her primary OB had mentioned perhaps trying Buspar instead. She tells me that she has heard bad things about that drug from her dad but asked that I check with Dr Lazo. I also discussed with pt what doctor she plans to see as her primary OB since she has seen 2 primary OB's for NOB already and is scheduled to see a third tomorrow. Pt and I discussed that [facility] team would like to know which doctor she will be seeing consistently so we can provide updated records after each visit. I reviewed the current symptoms with Dr Lazo and asked about the Buspar. He advised that thosecan be common side effects of Zoloft when just starting the medication. She can continue for now and see if the side effects resolve if that is ok with pt otherwise can consider Buspar. Pt tells me that she saw Dr Sheldon Delgado today and that is going to be her primary OB from now on.She tells me that he advised her to come off the Zoloft if it is making her feel bad and he prescribed Buspar to start immediately. documented in this encounter Plan of Treatment Not on file documented as of this encounter Visit Diagnoses Not on filedocumented in this encounter Care Teams Plsql Developer Relationship Specialty [place] [address] [address] [place] [address] PCP - General 07/04/19 [place] [address] [address] [place] [address] 11/16/18 Ernie Shaw MD [address] [place] [address] [address] [place] [address] Powder And Primer Canning Leader Obstetrics and Gynecology 06/10/20 documented as of this encounter
--- OUTSIDE RECORDS SUMMARY | 2024-02-24 20:09 | XMS_ITS | Encounter Summary ---
Author Organization [facility] Healthcare Address [address] [place] [address] Care Team Providers Care Terminal Make Up Operator Name Role Phone Huseyin Dangelo MD Unavailable [phone] Brian Mon MD Primary Care Provider + Ernie Shaw MD Unavailable [phone] Reason for Visit * Reason Onset Date Comments Medications in 06/13/2020 Asking what medications she can take for cold type symptoms Encounter Details Date Type Department Care Team (Late st Contact Info) Description 06/13/2020 Nurse Triage [address] [address] Violette Ludwig RN Social History Tobacco Use [...] Telephone Encounter - Violette Ludwig RN - 06/13/2020 4:40 PM CDT 1610: Patient called stating she is tired, having sweats, feels terrible, and is clammy. It is hardfor her to tell how sick she is because she has adrenal insufficiency and many of these symptoms goalong with this disease. She is wanting to know what medications she can take for cold type symptoms because she is . Explained that she can take plain Robitussin for a cough. She can also take Benadry, Claritin, Zyrtec, nasal saline spray, and she can use cough drops. Explained that these medications should not be taken is they have any letters after them. She is also able to take Tylenol for discomfort - reviewed dose and frequency of Tylenol Regular Strength and Tylenol Extra Strength. Patient indicated understanding and will follow medication guidelines. Reason for Disposition ??? Caller requesting information about medication during ; adult is not ill AND triager answers question Answer Assessment - Initial Assessment Questions 1. NAME of MEDICATION: What medicine are you calling about? Medications for cold type symptoms 2. QUESTION: What is your question? What medications can I take at home since I am for cold type symptoms? 3. PRESCRIBING HCP: Who prescribed it? Reason: if prescribed by specialist, call should be referred to that group. N/A 4. SYMPTOMS: Do you have any symptoms? She is tired, having sweats, clammy, feels terrible 5. SEVERITY: If symptoms are present, ask Are they mild, moderate or severe? Moderate 6. : Is there any chance that you are ? When was your last menstrual period? at 7 weeks 3 days Protocols used: MEDICATION QUESTION [id number] documented in this encounter Plan of Treatment Not on file documented as of this encounter Visit Diagnoses Not on filedocumented in this encounter Care Teams Terminal Make Up Operator Relationship Specialty [place] [address] [address] [facility] [place] [address] PCP - General 07/04/19 [place] [address] [address] [place] [address] 11/16/18 Ernie Shaw MD [address] [facility] [address] [place] [address] Ribbon Winder Obstetrics and Gynecology 06/10/20 documented as of this encounter
--- OUTSIDE RECORDS SUMMARY | 2024-02-24 20:09 | XMS_ITS | Encounter Summary ---
Author Organization [facility] Healthcare Address [address] [place] [address] Care Team Providers Care Relief Pharmacist Name Role Phone Huseyin Dangelo MD Unavailable [phone] Brian Mon MD Primary Care Provider + Ernie Shaw MD Unavailable [phone] Encounter Details Date Type Department Care Team (Late st Contact Info) Description 06/11/2020 4:25 PM CDT Lab [place] [phone] Supervision of high-risk , unspecified trimester Social [...] Name Priority Date/Time Associated Diagnosis Comments PROTEIN / CREATININE RATIO, URINE, RANDOM Routine 06/11/2020 4:25 PM CDT Supervision of high-risk , unspecified trimester documented in this encounter Results * Protein / creatinine ratio, urine, random (06/11/2020 4:25 PM CDT) Protein, ur, quant 32.4 mg/dL [facility] Comment: Interpretive Data No reference range established. Current interpretive data was last revised 2018. Creatinine Ur 355.2 mg/dL [facility] Comment: Interpretive Data No reference range established. Current interpretive data was last revised 2018. Protein/creatinin e ratio 91.2 0.0 - 180.0 mg/g CR [facility] Urine 06/11/2020 4:25 PM CDT 06/11/2020 4:58 PM CDT us Iris Bird MD LAB URINE ORDERABLES Final Result [facility] [place] [address] documented in this encounter Visit Diagnoses Diagnosis Supervision of high-risk , unspecified trimester documented in this encounter Care Teams Relief Pharmacist Relationship Specialty [place] [address] [address] [facility] [address] PCP - General 07/04/19 [place] [address] [address] [facility] [address] 11/16/18 Ernie Shaw MD [address] [place] [address] [address] [facility] [place] [address] Post Partum Nurse Obstetrics and Gynecology 06/10/20 documented as of this encounter
--- OUTSIDE RECORDS SUMMARY | 2024-02-24 20:09 | XMS_ITS | Encounter Summary ---
Author Organization [facility] Healthcare Address [address] [place] [address] Care Team Providers Care Senior Web Services Developer Name Role Phone Huseyin Dangelo MD Unavailable [phone] Brian Mon MD Primary Care Provider + Ernie hSaw MD Unavailable [phone] Reason for Referral * Diagnostic Imaging (Routine) - Closed Specialty Diagnoses / Procedures Referred By Contac t Referred To Contact Diagnoses Gume disease (HCC) Lupus History of recurrent miscarriages Procedures Ob Limited Ernie Shaw MD [address] [place] [address] [address] [place] [address] Phone: tel: fax: [facility] (All Locations) Referral ID Status Reason Start Date Expiration Date Visits Re quested Visits Authorized [id number] Closed 06/03/2020 02/25/2021 1 12 Reason for Visit * Diagnostic Imaging (Routine) - Closed Specialty Diagnoses / Procedures Referred By Contac t Referred To Contact Diagnoses [place] disease (HCC) Lupus History of recurrent miscarriages Procedures Ob Limited Ernie Shaw MD [address] [facility] [address] [place] [address] Phone: tel: fax: [facility] (All Locations) Referral ID Status Reason Start Date Expiration Date Visits Re quested Visits Authorized [id number] Closed 06/03/2020 02/25/2021 1 12 Encounter Details Date Type Department Care Team (Latest Contact Info) Description 06/11/2020 9:44 AM CDT - 06/11/2020 11:59 PM CDT Hospital Encounter [facility] - Ultrasound [address] [facility], 7th Floor, [address] [facility] [place] [address] Ernie Shaw MD [address] [place] [address] [address] [place] [address] [place] disease ([facility]); Lupus (CMS/[facility]); History of recurrent miscarriages Discharge Disposition: Discharge to home or self [...] (three) times a day as needed 1 belimumab (Benlysta) auto-injector Inject 1 mL [...] 05/31/2020 1 hydrOXYchloroQUINE (PLAQUENIL) 200 mg tablet TAKE 1 TABLET BY MOUTH EVERY DAY AT NIGHT 30 tablet 04/05/2020 1 hydrOXYzine (ATARAX) 25 mg tablet Take 1 tablet (25 mg total) by mouth 3 (three) times a day as needed for anxiety 90 tablet 06/23/2020 1 hydrOXYzine (ATARAX) 25 mg tablet Take [...] 1 predniSONE (DELTASONE) 5 mg tablet Take 5 mg by mouth 11/11/2019 1 progesterone (PROMETRIUM) 200 mg capsule Take [...] LIMITED Schedule Routine, Read Routine (OP Routine) 06/11/2020 9:44 AM CDT [place] disease (CMS/HCC) Lupus (CMS/HCC) History of recurrent miscarriages documented in this encounter Results * US Ob Limited (06/11/2020 9:44 AM CDT) Anatomical Region Laterality Modality Abdomen N/A Ultrasound 06/11/2020 9:44 AM CDT Narrative 06/11/2020 10:44 AM CDT There are no Discrete Measurement Components for this test result - Please see .pdf Procedure Note Kristin Sorto MD - 06/11/2020 There are no Discrete Measurement Components for this test result - Pleasesee .pdf Ernie Shaw MD IMG OB US PROCEDURES Final Result documented in this encounter Visit Diagnoses Diagnosis [place] disease (HCC) Glucocorticoid deficiency Lupus Systemic lupus erythematosus History of recurrent miscarriages documented in this encounter Care Teams Senior Web Services Developer Relationship Specialty [place] [address] [address] [facility] [address] [place] [address] PCP - General 07/04/19 [place] [address] [address] [place] [address] 11/16/18 Ernie Shaw MD [address] [place] [address] [address] [place] [address] Investigation Specialist Obstetrics and Gynecology 06/10/20 documented as of this encounter
--- OUTSIDE RECORDS SUMMARY | 2024-02-24 20:09 | XMS_ITS | Encounter Summary ---
Author Organization [facility] [employer] [facility] Address [address] [place] [address] Phone Care Team Providers Care Restaurant Kitchen And Service Manager Name Role Phone Huseyin Dangelo MD Unavailable [phone] Brian Mon MD Primary Care Provider + Ernie Shaw MD Unavailable [phone] Encounter Details Date Type Department Care Team (Late st Contact Info) Description 06/23/2020 Telephone [facility] Psychiatry Lois Hyde LCSW [address] [facility] [address] [place] [address] Social History Tobacco Use Types [...] encounter Miscellaneous Notes * Telephone Encounter - Lois Hyde LCSW - 06/23/2020 1:10 PM CDT Behavioral Health Service ATTEMPTED Phone Contact By Lois Hyde LCSW to Carito Madison 1990 Objective of Call: Follow up on initial referral Outcome:Left voicemail Notes, if applicable: [facility] Coordinator LVM for pt informing of upcoming appt. Lois Hyde LCSW Behavioral Health Service [facility] Department of Psychiatry [phone] documented in this encounter Plan of Treatment Not on file documented as of this encounter Visit Diagnoses Not on filedocumented in this encounter Care Teams Restaurant Kitchen And Service Manager Relationship Specialty [place] [address] [address] [facility] [place] [address] PCP - General 07/04/19 [place] [address] [address] [facility] [place] [address] 11/16/18 Ernie Shaw MD [address] [facility] [address] [place] [address] Manager Programs Obstetrics and Gynecology 06/10/20 documented as of this encounter
--- OUTSIDE RECORDS SUMMARY | 2024-02-24 20:09 | XMS_ITS | Encounter Summary ---
Author Organization [facility] Healthcare Address [address] [place] [address] Care Team Providers Care Camp Manager Name Role Phone Huseyin Dangelo MD Unavailable Brian Mon MD Primary Care Provider + Reason for Visit * Reason Onset Date Comments UX DEVELOPER Problem 06/09/2020 7 weeks and having severe abdominal cramping, and occasional red spotting Encounter Details Date Type Department Care Team (Late st Contact Info) Description 06/09/2020 Nurse Triage [address] [address] Violette Ludwig RN Social History Tobacco Use [...] Telephone Encounter - Violette Ludwig RN - 06/09/2020 12:54 PM CDT 1236: Patient called asking how [facility] works - Does she need to register or is it like the emergency department. Explained that this is an emergency department for patients. Patient states that for the last week she has had severe lower abdominal cramping and red spotting. She is not wearing a pad and states the spotting is occasional. Gives a history of Giles's disease and feels like her medications are out of wack . C/O dizziness and feels like passing out. Patient has spoken with the [facility] physicians and was referred to the [facility]. Patient given directions to [facility], parking, and the 5th floor. Her initial OB appointment is 2020 with [facility]. Patient is on her way in. Reason for Disposition ??? MODERATE-SEVERE abdominal pain Answer Assessment - Initial Assessment Questions 1. LOCATION: Where does it hurt? Severe low abdominal cramping 2. RADIATION: Does the pain shoot anywhere else? (e.g., chest, back, shoulder) Denies 3. ONSET: When did the pain begin? (e.g., minutes, hours or days ago) One week ago 4. ONSET: Gradual or sudden onset? Gradual 5. PATTERN Does the pain come and go, or has it been constant since it started? Intermittent 6. SEVERITY: How bad is the pain? [...] unable to do any normal activities Moderate to severe 7. RECURRENT SYMPTOM: Have you ever had this type of abdominal pain before? If so, ask: When wasthe last time? and What happened that time? Denies 8. CAUSE: What do you think is causing the abdominal pain? Unsure 9. RELIEVING/AGGRAVATING FACTORS: What makes it better or worse? (e.g., antacids, bowel movement,movement) Has noted noted anything that makes it better or worse 10. OTHER SYMPTOMS: Has there been any vaginal bleeding, fever, vomiting, diarrhea, or urine problems? Reports red spotting - is not wearing a pad 11. MANE: What date are you expecting to deliver? Unsure - has not been seen for this at this time Protocols used: - ABDOMINAL PAIN LESS THAN 20 WEEKS [id number] documented in this encounter Plan of Treatment Not on file documented as of this encounter Visit Diagnoses Not on filedocumented in this encounter Care Teams Camp Manager Relationship Specialty [place] [address] [address] [address] PCP - General 07/04/[place] [address] [address] [address] 11/16/18 documented as of this encounter
--- OUTSIDE RECORDS SUMMARY | 2024-02-24 20:09 | XMS_ITS | Encounter Summary ---
Author Organization [facility] [employer] [facility] Address [address] [place] [address] Phone Care Team Providers Care Web Designer Name Role Phone Huseyin Dangelo MD Unavailable [phone] Brian oMn MD Primary Care Provider + Ernie Shaw MD Unavailable [phone] Encounter Details Date Type Department Care Team (Late st Contact Info) Description 06/22/2020 Telephone [facility] Psychiatry Lois Hyde LCSW [address] [facility] [address] [place] [address] Social History Tobacco Use Types [...] Telephone Encounter - Lois Hyde LCSW - 06/22/2020 12:59 PM CDT Behavioral Health Service Progress Note Carito [place] 1990 Contact Type: Telephone EPDS:Not Administered at this time SI/HI:Not Indicated Safety Planning:N/A Status: Impression/Assessment: [facility] Coordinator made contact with pt referred to service by [facility] provider. Pt was initially referred for therapy, spoke with Physical Therapy Assistant who shared referral resources as HS not accepting newtherapy pts. Pt was later referred for psychiatry support, which pt notes is preferred service. Pt is 9 weeks and currently experiencing worsening sx related to health condition- Lupus and [place]'s disease- and change in meds. Pt started on Buspar last week, and discontinued Xanex, which she had taken for 3 years. Pt notes dx of Anxiety, MDD and hx of trauma and loss at 18. Ptreports she is hopeful and motivated to engage in treatment. Pt is starting new job soon and requests appt on a , however is open to next available appt. Phone assessment was cut short as pt was getting call from doctor's office - will contact pt once appt is scheduled. ActionTaken/Interventions:Reviewed medical chart, Provided emotional support, Provided psychoeducational information on PMADs, Explored existing coping skills, Discussed Coping Skills and Strategies,Reviewed on-campus resources and supports available and Provided information and contact for PB Services Follow-Up Plan:PB staff will continue to follow patient to provide ongoing support, sx managementand referrals as indicated PB Therapy:Not scheduled at this time, Coordinator will revisit [facility] Psychiatry:Scheduled Appointment for: TBD Lois Hyde LCSW Behavioral Health Service [facility] Department of Psychiatry [phone] documented in this encounter Plan of Treatment Not on file documented as of this encounter Visit Diagnoses Not on filedocumented in this encounter Care Teams Web Designer Relationship Specialty [place] [address] [facility] [address] [place] [address] PCP - General 07/04/19 [place] [address] [address] [place] [address] 11/16/18 Ernie Shaw MD [address] [place] [address] [address] [place] [address] Passenger Relations Representative Obstetrics and Gynecology 06/10/20 documented as of this encounter
--- OUTSIDE RECORDS SUMMARY | 2024-02-24 20:09 | XMS_ITS | Encounter Summary ---
Author Organization [facility] [employer] [facility] Address [address] [place] [address] Phone Care Team Providers Care Housekeeper/Laundry Assistant Name Role Phone Huseyin Dangelo MD Unavailable [phone] Brian Mon MD Primary Care Provider + Ernie Shaw MD Unavailable [phone] Encounter Details Date Type Department Care Team (Late st Contact Info) Description 06/14/[address] [facility] Psychiatry [address] [facility] 2nd [address] [place] [address] Courtney June BS Social History [...] Telephone Encounter - Courtney June BS - 06/14/2020 12:31 PM CDT Behavioral Health Service ATTEMPTED Phone Contact By SAMSON Benitez to Carito [place] 1990 Objective of Call: Follow up on initial referral Outcome:Successful Contact Notes, if applicable: Coordinator f/u on referral. Coordinator advised that currently [facility] is full for therapy services. Pt states she may have already found a place.Coordinator sent pt list for local providers via email. SAMSON Benitez Behavioral Health Service [facility] Department of Psychiatry [phone] documented in this encounter Plan of Treatment Not on file documented as of this encounter Visit Diagnoses Not on filedocumented in this encounter Care Teams Housekeeper/Laundry Assistant Relationship Specialty [place] [address] [address] [address] PCP - General 07/04/19 [place] [address] [address] [place] [address] 11/16/18 Ernie Shaw MD [address] [place] [address] [address] [facility] [place] [address] Institutional Commodity Analyst Obstetrics and Gynecology 06/10/20 documented as of this encounter
--- OUTSIDE RECORDS SUMMARY | 2024-02-24 20:09 | XMS_ITS | Encounter Summary ---
Author Organization [facility] [employer] [facility] Address [address] [place] [address] Phone Care Team Providers Care Condominium Property Manager Name Role Phone Huseyin Dangelo MD Unavailable [phone] Brian Mon MD Primary Care Provider + Ernie Shaw MD Unavailable [phone] Reason for Visit * Reason Onset Date Comments Abdominal Cramping 06/14/2020 Encounter Details Date Type Department Care Team (Late st Contact Info) Description 06/14/2020 Telephone [facility] Maternal- Medicine [address] [place] [address] Health 7th Floor [address] [place] [address] Leti Ricks Abdominal Cramping Social History Tobacco Use Types Packs/Day Years [...] encounter Miscellaneous Notes * Telephone Encounter - Silas Lazo MD - 06/15/2020 10:34 AM CDT Can you let her know I will coordinate with her cmo to come up with a plan this week. Thanks Matthieu * Telephone Encounter - Leti Ricks - 06/14/2020 4:17 PM CDT I spoke with pt and advised her of the recommendation for psychiatry referral and she advised that she actually prefers that. I have reached out to [facility] to arrange. 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 ( notes are in Epic from this visit) Pt wants to know what to do now as she is afraid this will send her back into a flare up and she will loose this . To Dr Lazo to advise. * Telephone Encounter - Silas Lazo MD - 06/14/2020 12:58 PM CDT Lets put in a psych referral for her. I don't feel comfortable prescribing her lexapro with that history. Silas Lazo MD * Telephone Encounter - Leti Ricks - 06/14/2020 11:48 AM CDT Contacted pt regarding her cramping and spotting and request for an ultrasound. Pt tells me that she passed a good amount of tissue on Sunday and was having bright red bleeding all weekend but denies any at this time. She tells me that she is having cramping in her vagina. She is requesting an ultrasound. Advised pt that she could come to the [facility] for evaluation or contact her primary OB. She advised me that she would contact her primary OB to see if they are able to do an ultrasound. Pt also requested that I check with Dr Lazo about being prescribed Lexapro instead of Zoloft. Pt tells me that she started on Zoloft over the weekend and it caused her to be dizzy, clammy and her heart was racing. She prefers Lexapro and states she advised provider of this on Sunday but they started Zoloft instead. She felt it might have been due to her past history of taking Lexapro and previous providers thinking it may have triggered seizures. Advised pt that I would check with Dr Lazo about Lexapro. * Telephone Encounter - Leti Ricks - 06/14/2020 11:36 AM CDT ----- Message from Shanell Scanlon sent at 06/14/2020 10:54 AM CDT ----- Regarding: callback Hi Team, Patient called in she is little over 7 weeks, she was seen on Sunday but over weekend had discharge(looked like what happen last time when she miscarried) and bad cramping. She is asking if ultrasound can be scheduled. Callback # [phone] She is asking for callback. Dustin Reece documented in this encounter Plan of Treatment Not on file documented as of this encounter Visit Diagnoses Not on filedocumented in this encounter Care Teams Condominium Property Manager Relationship Specialty [place] [address] [address] [facility] [address] [place] [address] PCP - General 07/04/19 [place] [address] [address] [facility] [address] [place] [address] 11/16/18 Ernie Shaw MD [address] [place] [address] [address] [place] [address] Solar/Renewable Energy Sales Obstetrics and Gynecology 06/10/20 documented as of this encounter
--- OUTSIDE RECORDS SUMMARY | 2024-02-24 20:09 | XMS_ITS | Encounter Summary ---
Author Organization [facility] Address [address] [facility] [address] [place] [address] Care Team Providers Care Journeyman Operator Assistant Name Role Phone Huseyin Dangelo MD Unavailable [phone] Brian Mon MD Primary Care Provider + Ernie Shaw MD Unavailable [phone] Reason for Visit * Reason Comments Threatened 020.0 Encounter Details Date Type Department Care Team (Late st Contact Info) Description 06/18/2020 9:30 AM CDT Office Visit [facility] Salgu[facility] [address] [place] [address] [address], [place] [address] Threatened in early (Primary Dx) Social History Tobacco Use Types [...] as of this encounter Progress Notes * Ernie Shaw MD - 06/18/2020 9:30 AM CDT [facility] Obstetric Ultrasound Date of exam: 06/18/2020 Diagnoses and all orders for this visit: Threatened in early (Primary) - US Ob Transvaginal Clinical history: Patient presents for early OB sono with bleeding and cramping and previously scheduled NOB exam. No LMP recorded (lmp unknown). Patient is . 8 weeks 1 day by prior ultrasound. Findings: An early TV OB ultrasound is performed. The uterus is anteverted and enlarged and measures 11.3 x 6.6 x 7.6 cm and contains an intrauterine with gestational sac, pole and CRL measuring 168 mm or 8 weeks 1 day giving an MANE of 01/27/21. FHR is 168 bpm. The right ovary measures 1.4 x 1.5 x 1.7 cm. The left ovary measures 3.4 x 2.3 x 3.2 cm and contains a 1.5 x 1.4 x 1.1 cm cyst. The ovaries appear normal. Impression: 1. 8 week 1 day AGA by this ultrasound. 2. Normal appearing ovaries bilaterally. 3. Ultrasound findings were discussed with patient at visit. Patient did not feel well enough to stay for her NOB exam. She had 2 prior ultrasounds and 2 prior NOB exams this week. Patient is seeing multiple providers, 3 OBs and 2 MFMs. Secondary to her Gume's disease, will transfer care completely to [facility] to avoid unnecessarily repeating diagnostic tests and for [facility] care for this medical condition. Interpreting physician: Ernie Shaw MD Obstetrics and Gynecology documented in this encounter Plan of Treatment Not on file documented as of this encounter Visit Diagnoses Diagnosis Threatened in early - Primary documented in this encounter Care Teams Journeyman Operator Assistant Relationship Specialty [place] [address] [address], [place] [address] PCP - General 07/04/19 [place] [address] [address] [place] [address] 11/16/18 Ernie Shaw MD [address] [facility] [address] [place] [address] Transit Clerk Obstetrics and Gynecology 06/10/20 documented as of this encounter
--- OUTSIDE RECORDS SUMMARY | 2024-02-24 20:09 | XMS_ITS | Encounter Summary ---
Author Organization [facility] [employer] [facility] Address [address] [place] [address] Phone Care Team Providers Care Supplier Quality Specialist Name Role Phone Huseyin Dangelo MD Unavailable [phone] Brian Mon MD Primary Care Provider + Ernie Shaw MD Unavailable [phone] Encounter Details Date Type Department Care Team (Latest Contact Info) Description 06/22/2020 2:40 PM CDT Telemedicine [facility] Endocrinology Metabolism and Lipid [address] [facility] Advanced Medicine 5th [place] [address] [place] [address] Darius Fernandez MD [address] [facility] [address] [place] [address] Adrenal insufficiency (CMS/HCC) (Primary Dx) Social History Tobacco Use [...] - Inhaled Oxygen Concentration - - Weight 76.2 kg (168 lb) 06/22/2020 12:50 PM CDT Height 160 cm (5' 3 ) 06/22/2020 12:50 PM CDT Body Mass Index 29.76 06/22/2020 12:50 PM CDT documented in this encounter Progress Notes * Codi Fernandez MD - 06/22/2020 2:40 PM CDT Endocrine Patient Visit This was a telemedicine visit with Umer Dianelys Gonzalezo linnette which took place via real-time video connection with [employer]. During the visit, I was located in the office and the patient [facility]. The patient visit started at 2:40 PM and ended at 3:00 PM. My total encounter time on 06/22/2020 was 30 minutes which was spent in [...] with history of lupus which has required salvage determiner steriod use for 2.5 years. Has required high Dose in the past up to 60 mg daily. 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 She is currently 8 weeks . She is feeling extremely fatigued. Before , she was on 5 mg of prednisone. Switched to Hydrocortisone at week 4 of but felt very worn out when she was taking it. She switched to prednisone. She had two ER visit since she got due to nausea and vomiting. She is currently on 15 mg of prednisone daily. Current Outpatient Medications Medication ??? busPIRone (BUSPAR) 7.5 mg tablet ??? ergocalciferol (VITAMIN D) 50,000 unit capsule ??? hydrOXYchloroQUINE (PLAQUENIL) 200 mg tablet ??? multivitamin capsule ??? omeprazole (PriLOSEC) 20 mg capsule ??? ondansetron (ZOFRAN) 4 mg tablet ??? predniSONE (DELTASONE) 1 mg tablet ??? predniSONE (DELTASONE) 5 mg tablet ??? progesterone (PROMETRIUM) 200 mg capsule ??? ALPRAZolam (XANAX) 0.25 mg tablet ??? azaTHIOprine (IMURAN) 50 mg tablet ??? belimumab (Benlysta) auto-injector ??? bromocriptine (PARLODEL) 2.5 mg tablet ??? ferrous gluconate 324 mg (38 mg of elemental iron) tablet ??? hydrocortisone (CORTEF) 5 mg tablet ??? ipratropium (ATROVENT) 0.03 % nasal spray ??? meclizine (ANTIVERT) 25 mg tablet ??? propranoloL (INDERAL) 10 mg tablet ??? sertraline (ZOLOFT) 25 mg tablet ??? triamcinolone (KENALOG) 0.1 % cream ??? valACYclovir (VALTREX) 500 mg tablet ??? Ventolin HFA 90 mcg/actuation inhaler No current facility-administered medications for this visit. Review of Systems Review of systems per HPI and otherwise all other systems are negative. OBJECTIVES Physical exam: Ht 160 cm (5' 3 ) Wt 76.2 kg (168 lb) LMP (LMP Unknown) Comment: LMP end of Mar 2020 BMI 29.76 kg/m?? Past Medical History: Diagnosis Date ??? [...] a hospital admission) Allergies Allergen Reactions ??? Methylprednisolone Anaphylaxis and Syncope Syncope ??? Penicillins Hives and Rash ??? Amoxicillin Rash ??? Escitalopram Other (See comments) and Rash Caused seizures Caused seizures Caused seizures ??? Aripiprazole Other (See comments) ??? Venlafaxine Itching Social History Tobacco Use ??? Smoking status: Former Smoker Quit date: 12/28/2018 Years since quittin.4 ??? Smokeless tobacco: Never Used Substance Use [...] with history of lupus which has required salvage determiner steriod use for 2.5 years. Has required high Dose in the past up to 60 mg daily. 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 She is currently 8 weeks . Currently she is on 15 mg daily of prednisone. I have dicussed with her today that the preferred steroid during is hydrocortisone. but if she has to use prednisone, she soul try to exceed 10 mg daily. Discussed stress doses I will see her back in 4 weeks. Codi Fernandez MD Instructor in Medicine Division of Endocrinology, Metabolism and Lipid Research [facility] documented in this encounter Miscellaneous Notes * Addendum Note - Codi Fernandez MD - 06/22/2020 2:40 PM CDTAddended by: CODI FERNANDEZ on: 11/26/2020 09:53 AM Modules accepted: Orders documented in this encounter Plan of Treatment Not on file documented as of this encounter Visit Diagnoses Diagnosis Adrenal insufficiency (HCC)- Primary Glucocorticoid deficiency documented in this encounter Historical Medications * This list may reflect changes made after this encounter. busPIRone (BUSPAR) 7.5 mg tablet Take 7.5 mg by mouth 2 (two) times a day 06/17/2020 07/15/2020 added in this encounter Additional Health Concerns Infection Onset Date Last Indicated Resolved Time COVID: Suspected 08/18/2020 08/18/2020 08/18/2020 4:51 PM CDT COVID: Suspected 09/13/2020 01/13/2021 09/22/2020 9:40 AM CDT COVID: Suspected 09/24/2020 09/24/2020 09/24/2020 10:08 PM CDT COVID: Suspected 10/18/2020 10/18/202010/1810/18/2020 2:26 PM CDT COVID: Suspected 11/16/2020 11/16/2020 11/16/2020 10:05 PM CDT documented as of this encounter Care Teams Supplier Quality Specialist Relationship Specialty [place] [address] [address] [place] [address] PCP - General 07/04/19 [place] [address] [address] [place] [address] 11/16/18 Ernie Shaw MD [address] [place] [address] [address] [place] [address] Gear Hobber Operator Obstetrics and Gynecology 06/10/20 documented as of this encounter
--- OUTSIDE RECORDS SUMMARY | 2024-02-24 20:09 | XMS_ITS | Encounter Summary ---
Author Organization [facility] Healthcare Address [address] [place] [address] Care Team Providers Care Cathead Operator Name Role Phone Huseyin Dangelo MD Unavailable [phone] Brian Mon MD Primary Care Provider + Reason for Visit * Reason Comments Dizziness Encounter Details Date Type Department Care Team (Latest Contact Info) Description 06/09/2020 1:24 PM CDT - 06/09/2020 5:53 PM CDT Hospital Encounter [address] [address] [place] [address] [place] [address] [id number] Discharge Disposition: Discharge to home or self [...] Sign Reading Time Taken Comments Blood Pressure 136/86 06/09/2020 1:45 PM CDT Pulse 87 06/09/2020 1:45 PM CDT Temperature - - Respiratory Rate - - Oxygen Saturation 98% 06/09/2020 1:45 PM CDT Inhaled Oxygen Concentration - - Weight 79.4 kg (175 lb) 06/09/2020 1:35 PM CDT Height 160 cm (5' 3 ) 06/09/2020 1:35 PM CDT Body Mass Index 31 06/09/2020 1:35 PM CDT documented in this encounter Discharge Diagnoses Diagnosis Other specified related conditions, unspecified trimester - OTHER SPECIFIED RELATED CONDITIONS, UNSPECIFIED TRIMESTER related exhaustion and fatigue, unspecified trimester - RELATED EXHAUSTION AND FATIGUE, UNSPECIFIED TRIMESTER Spotting complicating , unspecified trimester - SPOTTING COMPLICATING , UNSPECIFIED TRIMESTER 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) - GLOMERULAR DISEASE IN SYSTEMIC LUPUS ERYTHEMATOSUS Endocrine, nutritional and metabolic diseases complicating , unspecified trimester - ENDOCRINE, NUTRITIONAL AND METABOLIC DISEASES COMPLICATING , UNSPECIFIED TRIMESTER Primary adrenocortical insufficiency (HCC) - PRIMARY ADRENOCORTICAL INSUFFICIENCY Glucocorticoid deficiency Other specified diseases and conditions complicating - OTHER SPECIFIED DISEASES AND CONDITIONS COMPLICATING Fibromyalgia - FIBROMYALGIA Unspecified myalgia and myositis Rheumatoid arthritis, unspecified (HCC) - RHEUMATOID ARTHRITIS, UNSPECIFIED Diseases of the nervous system complicating , unspecified trimester - DISEASES OF THE NERVOUS SYSTEM COMPLICATING , UNSPECIFIED TRIMESTER Epilepsy, unspecified, not intractable, without status epilepticus (HCC) - EPILEPSY, UNSPECIFIED, NOT INTRACTABLE, WITHOUT STATUS EPILEPTICUS care for patient with recurrent loss, unspecified trimester - CARE FOR PATIENT WITH RECURRENT LOSS, UNSPECIFIED TRIMESTER Personal history of nicotine dependence - PERSONAL HISTORY OF NICOTINE DEPENDENCE Other jail (current) drug therapy - OTHER ELECTRONICS RECYCLER (CURRENT) DRUG THERAPY Allergy status to penicillin - ALLERGY STATUS TO PENICILLIN Weeks of gestation of not specified - WEEKS OF GESTATION OF NOT SPECIFIED documented in this encounter Medications at Time of Discharge ALPRAZolam (XANAX) 0.25 mg tablet Take 0.25 mg by mouth 3 (three) times a day as needed belimumab (Benlysta) auto-injector Inject 1 mL (200 mg total) under the skin every 7 days 4 Syringe 3 07/23/2019 1 bromocriptine (PARLODEL) 2.5 mg tablet Take 2.5 mg by mouth 2 (two) times a day 05/12/2020 1 diclofenac sodium (VOLTAREN) 1 % gel APPLY 2 GRAMS TOPICALLY TO ARTHRITIS JOINTS 3 TIMES A DAY NEEDED 12/11/2019 1 ergocalciferol (VITAMIN D) 50,000 unit capsule [...] vomiting 20 tablet 10/03/2019 1 predniSONE (DELTASONE) 5 mg tablet Take 5 mg by mouth 11/11/2019 1 progesterone (PROMETRIUM) 200 mg capsule Take by mouth daily 06/01/2020 1 propranoloL (INDERAL) 10 mg tablet Take 10 mg by mouth 3 (three) times a day 03/26/2020 1 triamcinolone (KENALOG) 0.1 % cream Apply [...] in this encounter H&P Notes * Shaye Cabrera, LICENSED INSURANCE SALES AGENT - 06/09/2020 2:28 PM CDT Obstetrics H&P Chief Complaint: fatigue Estimated Date of Delivery: None noted. Provider: MFM - scheduled 06/25 HPI: Carito Madison is a 30 y.o. female at Unknown gestation, dated by 1st trimester ultrasound Pt reports having U/S at primary OBs office this week and confirmed EDC. Pt c/o spotting x several days, did not pass any clots and worsening fatigue. Pt reports freq becoming more fatigued when her benlysta infusion is due, but her mobile application development lead canceled her infusion (prev scheduled 06/10).Pt prev. Expressed frustration with not having infusion. Her is complicated by Lupus, [place] disease, epilepsy and h/o SAB x 2 OB History Para Term AB Living 3 1 0 1 1 0 SAB TAB Ectopic Multiple Live Births 1 0 0 0 1 # Outcome Date GA Lbr Rojas/2nd Weight Sex Delivery Anes PTL Lv 3 Current 2 20w0d ND 1 SAB NURSING CLERK History: No LMP recorded (lmp unknown). Patient is . History of Abnormal Pap: None STD History: HSV, trich Past Medical History: Diagnosis Date ??? Anemia ??? Anxiety ??? Asthma ??? Chronic diarrhea ??? Chronic kidney disease ??? Depression ??? Fibromyalgia ??? Fibromyalgia ??? Headache, tension-type ??? Lupus (CMS/HCC) ??? Migraine ??? PONV (postoperative nausea and vomiting) ??? 07/13/2015 ??? Rheumatoid arthritis (CMS/HCC) ??? Seizures (CMS/HCC) Chronic hypertension: No Diabetes: No Asthma: Yes, [place] asthma, last used inhaler 1 yr ago. Past Surgical History: Procedure Laterality Date ??? [...] quittin.4 ??? Smokeless tobacco: Never Used Substance and Sexual Activity ??? Alcohol use: Yes Comment: occasionally ??? Drug use: Yes Types: Marijuana Comment: smoked last night ??? [...] defects, genetic disorders, or developmental delay: Yes, nephew w/ heart defect/deafness Allergies Allergen Reactions ??? Methylprednisolone Anaphylaxis and Syncope Syncope ??? Penicillins Hives and Rash ??? Amoxicillin Rash ??? Escitalopram Other (See comments) and Rash Caused seizures Caused seizures Caused seizures ??? Aripiprazole Other (See comments) ??? Venlafaxine Itching HOME MEDICATIONS : ALPRAZolam (XANAX) 0.25 mg tablet belimumab (Benlysta) auto-injector bromocriptine (PARLODEL) 2.5 mg tablet diclofenac sodium (VOLTAREN) 1 % gel ergocalciferol (VITAMIN D) 50,000 unit capsule ferrous gluconate 324 mg (38 mg of elemental iron) tablet hydrocortisone (CORTEF) 5 mg tablet hydrOXYchloroQUINE (PLAQUENIL) 200 mg tablet ipratropium (ATROVENT) 0.03 % nasal spray meclizine (ANTIVERT) 25 mg tablet multivitamin capsule omeprazole (PriLOSEC) 20 mg capsule ondansetron (ZOFRAN) 4 mg tablet propranoloL (INDERAL) 10 mg tablet triamcinolone (KENALOG) 0.1 % cream valACYclovir (VALTREX) 500 mg tablet Ventolin HFA 90 mcg/actuation inhaler Review of Sys: Negative except per HPI Vitals: Pulse: [76-87] 87 BP: (121-136)/(68-86) 136/86 Labs Review: Recent Results (from the past 24 hour(s)) POCT glucose Collection Time: 06/09/20 2:01 PM Result Value Ref Range Glucose, POC 103 70 - 199 mg/dL POCT hemoglobin Collection Time: 06/09/20 2:36 PM Result Value Ref Range Hemoglobin POC 11.7 (A) 12.1 - 15.1 g/dL POCT urinalysis dipstick Collection Time: 06/09/20 2:36 PM Result Value Ref Range Color, Urine, POC Yellow Clarity, ur, POC Clear Clear Glucose, ur, POC Negative Negative mg/dL Bilirubin, ur, POC Negative Negative, Small, Moderate, Large Ketones, ur, POC Negative Negative Specific [place], POC 1.010 1.005 - 1.030 Blood, ur, POC Negative Negative pH, ur, POC 8.5 (A) 5.0 - 8.0 Protein, ur, POC Negative Negative Urobilinogen, urine, POC 0.2 0.2 - 1.0 mg/dL Nitrite, ur, POC Negative Negative Leukocytes, ur, POC Negative Negative Lot Number [id number] CBC with auto differential Collection Time: 06/09/20 3:55 PM Result Value Ref Range WBC 9.3 3.8 - 9.9 K/cumm Hgb 12.9 11.9 - 15.5 g/dL Hct 38.2 35.6 - 45.5 % Plt 291 150 - 400 K/cumm MPV 9.6 9.1 - 12.3 fL RBC 4.18 3.90 - 5.20 M/cumm MCV 91.4 81.3 - 96.4 fL MCH 30.9 27.1 - 33.3 pg MCHC 33.8 32.3 - 35.7 g/dL RDW CV 12.8 11.1 - 14.9 % RDW SD 42.1 35.7 - 48.1 fL NRBC abs 0.00 0.00 - 0.01 K/cumm C3 complement Collection Time: 06/09/20 3:55 PM Result Value Ref Range Complement C3 132.0 90.0 - 180.0 mg/dL C4 complement Collection Time: 06/09/20 3:55 PM Result Value Ref Range Complement C4 20.6 10.0 - 40.0 mg/dL Differential, auto Collection Time: 06/09/20 3:55 PM Result Value Ref Range Neutrophil abs 7.7 (H) 1.7 - 6.5 K/cumm Imm gran abs 0.0 0.0 - 0.1 K/cumm Lymphocyte abs 1.0 0.8 - 3.3 K/cumm Monocyte abs 0.5 0.2 - 0.8 K/cumm Eosinophil abs 0.1 0.0 - 0.5 K/cumm Basophil abs 0.0 0.0 - 0.1 K/cumm Neutrophil pct 82.5 % Imm gran pct 0.3 % Lymphocyte pct 10.3 % Monocyte pct 5.8 % Eosinophil pct 0.8 % Basophil pct 0.3 % Physical Exam: General: NAD, mood appropriate Cardiovascular: Regular rate and rhythm Pulmonary: Clear to ausculation bilaterally Abdomen: Gravid, non-tender Extremities: Warm and well perfused Speculum Exam: deferred Cervix: deferred Ultrasound: +IUP completed by Dr. Shukla Labs: Assessment and Plan Carito Madison is a 30 y.o. female at Unknown who presented with fatigue Dr. Shukla came to BS to see pt. #FWB: +IUP #MWB: VSS Labs: CMP, CBC, TSH reflex to T4, C3, C4 Dr Shukla consulted w/ pt mobile application development lead - will coordinate benlysta infusions going forward Reviewed bleeding prec Plan of care reviewed w/ pt - message sent to schedulers re: MFM appt. Pt agreeable to plan of care. Shaye Cabrera NP 06/09/20 Cosigned by Nathalie Shukla MD at 06/10/2020 8:18 AM CDT Associated attestation - Nathalie Shukla MD - 06/10/2020 8:18 AM CDT Attending Attestation I have seen, examined, and discussed Carito Madison on 06/10/2020. I have evaluated the patient and reviewed the treatment plan and recommendations. I agree with the findings and the plan of care as documented. Reviewed that there is no data for Benlysta in , and this is only reserved for cases wherethere are no alternative regimens. Upping prednisone to 10mg daily and has Rheum followup 06/14/20. +IUP +FHR on bedside ultrasound. Labs pending. Precautions reviewed. documented in this encounter Nursing Notes * Ritika Thayer RN - 06/09/2020 5:49 PM CDT Patient presents to [facility] stating she was have excessive fatigue. Patient states she has taken her double dose of prednisone as ordered. Labs WNL. Viable IUP with visual heart movement noted by . DC home documented in this encounter Plan of Treatment Not on file documented as of this encounter Procedures Procedure Name Priority Date/Time Associated Diagnosis Comments DIFFERENTIAL AUTO STAT 06/09/2020 3:5 5 PM CDT C4 COMPLEMENT STAT 06/09/2020 3:55 PM CDT THYROID FUNCTION CASCADE STAT 06/09/2020 3:55 PM CDT CBC WITH AUTO DIFFERENTIAL STAT 06/09/2020 3:55 PM CDT C3 COMPLEMENT STAT 06/09/2020 3:55 PM CDT COMPREHENSIVE METABOLIC PANEL STAT 06/09/2020 3:55 PM CDT POCT URINALYSIS DIPSTICK Routine 06/09/2020 2:36 PM CDT POCT HEMOGLOBIN Routine 06/09/2020 2:36 PM CDT POCT GLUCOSE DEVICE Routine 06/09/2020 2 :01 PM CDT documented in this encounter Results * (ABNORMAL) Differential, auto (06/09/2020 3:55 PM CDT) Neutrophil abs 7.7(H) 1.7 - 6.5 K/cumm [facility] Imm gran abs 0.0 0.0 - 0.1 K/cumm [facility] Lymphocyte abs 1.0 0.8 - 3.3 K/cumm [facility] Monocyte abs 0.5 0.2 - 0.8 K/cumm [facility] Eosinophil abs 0.1 0.0 - 0.5 K/cumm [facility] Basophil abs 0.0 0.0 - 0.1 K/cumm [facility] Neutrophil pct 82.5 % [facility] Comment: Interpretive Data Percent cell count reference ranges are not reported, since discordance with absolute values may lead to misinterpretation of CBC data. Current Interpretive Data was last revised on 2017. Imm gran pct 0.3 % [facility] Comment: Interpretive Data Percent cell count reference ranges are not reported, since discordance with absolute values may lead to misinterpretation of CBC data. Current Interpretive Data was last revised on 2017. Lymphocyte pct 10.3 % [facility] Comment: Interpretive Data Percent cell count reference ranges are not reported, since discordance with absolute values may lead to misinterpretation of CBC data. Current Interpretive Data was last revised on 2017. Monocyte pct 5.8 % [facility] Comment: Interpretive Data Percent cell count reference ranges are not reported, since discordance with absolute values may lead to misinterpretation of CBC data. Current Interpretive Data was last revised on 2017. Eosinophil pct 0.8 % [facility] Comment: Interpretive Data Percent cell count reference ranges are not reported, since discordance with absolute values may lead to misinterpretation of CBC data. Current Interpretive Data was last revised on 2017. Basophil pct 0.3 % [facility] Comment: Interpretive Data Percent cell count reference ranges are not reported, since discordance with absolute values may lead to misinterpretation of CBC data. Current Interpretive Data was last revised on 2017. Blood specimen (specimen) 06/09/2020 3:55 PM CDT 06/09/2020 4:05 PM CDT Shaye Cabrera NP LAB BLOOD ORDERABLES Final Result Performing Organization Address City/[facility]/ZIP Co de Phone Number [facility] Department [place] [place] [address] * C4 complement (06/09/2020 3:55 PM CDT) Complement C4 20.6 10.0 - 40.0 mg/dL [facility] Blood specimen (specimen) 06/09/2020 3:55 PM CDT 06/09/2020 4:05 PM CDT Shaye Cabrera NP LAB BLOOD ORDERABLES Final Result [facility] Department [place] [employer] [place] [address] * C3 complement (06/09/2020 3:55 PM CDT) Complement C3 132.0 90.0 - 180.0 mg/dL [facility] Blood specimen (specimen) 06/09/2020 3:55 PM CDT 06/09/2020 4:05 PM CDT Shaye Cabrera NP LAB BLOOD ORDERABLES Final Result Performing Organization Address City/[facility]/ZIP Co de Phone Number [facility] [place] [address] * TSH reflex to free T4 (06/09/2020 3:55 PM CDT) Pathologist [facility] [place] TSH 1.10 0.30 - 4.20 mcIUnit/mL [facility] Blood specimen (specimen) 06/09/2020 3:55 PM CDT 06/09/2020 4:05 PM CDT Shaye Cabrera NP LAB BLOOD ORDERABLES Final Result Performing Organization Address [facility] Co de Phone Number [facility] [place] [address] * Comprehensive metabolic panel (06/09/2020 3:55 PM CDT) Pathologist [facility] [place] Sodium 136 135 - 145 mmol/L [facility] Potassium, pl 3.9 3.3 - 4.9 mmol/L [facility] Chloride 106 97 - 110 mmol/L [facility] CO2 23 22 - 32 mmol/L [facility] Anion gap 7 2 - 15 mmol/L [facility] BUN 9 8 - 25 mg/dL [facility] Creatinine 0.63 0.60 - 1.10 mg/dL [facility] Glucose 94 70 - 199 mg/dL [facility] Comment: Interpretive Data Fasting glucose [...] Calcium 9.8 8.5 - 10.3 mg/dL [facility] Bilirubin, total 0.2 0.1 - 1.2 mg/dL [facility] Protein, pl 7.4 6.5 - 8.5 g/dL [facility] Albumin 4.3 3.5 - 5.0 g/dL [facility] Alk phos 55 40 - 130 Units/L [facility] ALT 19 7 - 45 Units/L [facility] AST 21 10 - 45 Units/L [facility] Blood specimen (specimen) 06/09/2020 3:55 PM CDT 06/09/2020 4:05 PM CDT us Shaye Cabrera NP LAB BLOOD ORDERABLES Final Result [facility] Department [place] [address] * CBC with auto differential (06/09/2020 3:55 PM CDT) Pathologist [facility] [place] WBC 9.3 3.8 - 9.9 K/cumm [facility] Hgb 12.9 11.9 - 15.5 g/dL [facility] Hct 38.2 35.6 - 45.5 % [facility] Plt 291 150 - 400 K/cumm [facility] MPV 9.6 9.1 - 12.3 fL [facility] RBC 4.18 3.90 - 5.20 M/cumm [facility] MCV 91.4 81.3 - 96.4 fL [facility] MCH 30.9 27.1 - 33.3 pg [facility] MCHC 33.8 32.3 - 35.7 g/dL [facility] RDW CV 12.8 11.1 - 14.9 % [facility] RDW SD 42.1 35.7 - 48.1 fL [facility] NRBC abs 0.00 0.00 - 0.01 K/cumm [facility] Blood specimen (specimen) 06/09/2020 3:55 PM CDT 06/09/2020 4:05 PM CDT Shaye Cabrera NP LAB BLOOD ORDERABLES Final Result [facility] Department [place] [address] * (ABNORMAL) POCT hemoglobin (06/09/2020 2:36 PM CDT) Hemoglobin POC 11.7(A) 12.1 - 15.1 g/dL Capillary blood 06/09/2020 2 :36 PM CDT Shaye Cabrera NP POINT OF CARE TEST ORDERAB LES Final Result * (ABNORMAL) POCT urinalysis dipstick (06/09/2020 2:36 PM CDT) Color, Urine, POC Yellow Clarity, ur, POC Clear Clear Glucose, ur, POC Negative Negative mg/dL Bilirubin, ur, POC Negative Negative, Small, Moderate, Large Ketones, ur, POC Negative Negative Specific [place], POC 1.010 1.005 - 1.030 Blood, ur, POC Negative Negative pH, ur, POC 8.5(A) 5.0 - 8.0 Protein, ur, POC Negative Negative Urobilinogen, urine, POC 0.2 0.2 - 1.0 mg/dL Nitrite, ur, POC Negative Negative Leukocytes, ur, POC Negative Negative Lot Number [id number] Urine 06/09/2020 2:36 PM CDT Shaye Cabrera NP POINT OF CARE TEST ORDERAB LES Final Result * POCT glucose (06/09/2020 2:01 PM CDT) Glucose, POC 103 70 - 199 mg/dL [facility] Blood specimen (specimen) 06/09/2020 2:01 PM CDT 06/09/2020 2:01 PM CDT Nathalie Shukla MD LAB POCT ORDERABLES - ELAINE CE Final Result [facility] Department [place] [address] documented in this encounter Visit Diagnoses Not on filedocumented in this encounter Orders Lab Orders Without Results Count Last Ordered D ate First Ordered Date POCT GLUCOSE DEVICE 1 06/09/2020 Nursing Count Last Ordered Date First Orde red Date VITAL SIGNS 1 06/09/2020 documented in this encounter Care Teams Cathead Operator Relationship Specialty [place] [address] [place] [address] PCP - General 07/04/19 [place] [address] [place] [address] 11/16/18 documented as of this encounter
--- OUTSIDE RECORDS SUMMARY | 2024-02-24 20:09 | XMS_ITS | Encounter Summary ---
Author Organization [facility] Address [address] [place] [address] Phone Care Team Providers Care Preservative Filler Machine Operator Name Role Phone Huseyin Dangelo MD Unavailable [phone] Brian Mon MD Primary Care Provider + Ernie Shaw MD Unavailable [phone] Encounter Details Date Type Department Care Team (Late st Contact Info) Description 06/19/2020 Telephone [facility] Rheumatology [address] [facility] Advanced Medicine 5th [place] [address] [place] [address] Дмитрий Garcia MD [address] [place] [address] Social History Tobacco Use Types [...] encounter Miscellaneous Notes * Telephone Encounter - Дмитрий Garcia MD - 06/19/2020 8:23 PM CDT Discussed with outside ED since patient is currently in their facility for nausea and generalized fatigue. Patient has SLE and adrenal insufficiency. She is currently on HCQ and recently started on Azathioprine 50mg given her , and Benlysta was held given limited data for . She was recently seen in clinic on 06/15/2020 with normal CBC/CMP/dsDNA/C3/C4/urine protein. Low suspicion for active SLE flare currently. Patient takes chronic prednisone for adrenal insufficiency and follows with endocrine clinic. She recently contacted Endocrine on 05/31/2020 for nausea, diarrhea and fatigue and was instructed to switch from prednisone 5-15mg (self-titration) to hydrocortisone 10mg AM/5mg PM and may double dose if symptom worsens. Informed the outside ED regarding that conversation. documented in this encounter Plan of Treatment Not on file documented as of this encounter Visit Diagnoses Not on filedocumented in this encounter Care Teams Preservative Filler Machine Operator Relationship Specialty [place] [address] [facility] [place] [address] PCP - General 07/04/19 [place] [address] [address] [facility] [place] [address] 11/16/18 Ernie Shaw MD [address] [place] [address] [address] [place] [address] Deputy Chief Sheriff Obstetrics and Gynecology 06/10/20 documented as of this encounter
--- OUTSIDE RECORDS SUMMARY | 2024-02-24 20:09 | XMS_ITS | Encounter Summary ---
Author Organization [facility] Address [address] [place] [address] Phone Care Team Providers Care Leather Sprayer Name Role Phone Huseyin Dangelo MD Unavailable Brian Mon MD Primary Care Provider + Ernie Shaw MD Unavailable [phone] Encounter Details Date Type Department Care Team (Latest Contact Info) Description 06/14/2020 3:30 PM CDT Office Visit [facility] Rheumatology [address] [facility] Medical Office Building [address] [place] [address] Other systemic lupus erythematosus with other organ [...] Reading Time Taken Comments Blood Pressure 119/80 06/14/2020 3:06 PM CDT Pulse 79 06/14/2020 3:06 PM CDT Temperature 36.4 ??C (97.5 ??F) 06/14/2020 3:06 PM CD T Respiratory Rate - - Oxygen Saturation - - Inhaled Oxygen Concentration - - Weight 78.6 kg (173 lb 4.8 oz) 06/14/2020 3:06 P M CDT Height 160 cm (5' 3 ) 06/14/2020 3:06 PM CDT Body Mass Index 30.7 06/14/2020 3:06 PM CDT documented in this encounter Ordered Prescriptions Prescription Sig Dispense Quantity Refills Last Filled Start Date End Date azaTHIOprine (IMURAN) 50 mg tablet Take 1 tablet (50 mg total) by mouth daily 30 tablet 1 06/14/2020 hydrOXYchloroQUINE (PLAQUENIL) 200 mg tablet Take 2 tablets (400 mg total) by mouth daily 60 tablet 06/14/2020 1 documented in this encounter Progress Notes * Carolina Delarosa MD - 06/14/2020 3:30 PM CDT PATIENT NAME: Carito Madison : 1990 06/14/2020 HISTORY OF PRESENT ILLNESS: ia a 30 [...] She also has a positive double-stranded DNA, ROTOPRINTER antibody and a low C4 and C3 [...] history occasional marijuana use Interim She is here for a urgent visit. She is 7 weeks . She reports this is a accidental . Her last Benlysta was 6 weeks ago. She has established with MFM She is doing well today. She is on hydroxychloroquine 200 MG. Of note she has not had an eye examination hydroxychloroquine the last 3 years. She was seen by Endocrinology and diagnosed with adrenal insufficiency and they have been taping her prednisone she is currently down to 5 mg She is worried about the outcome of and wants to know if she can continue Benlysta ALLERGIES: Allergies Allergen Reactions ??? Methylprednisolone Anaphylaxis and Syncope Syncope ??? Penicillins Hives and Rash ??? Amoxicillin Rash ??? Escitalopram Other (See comments) and Rash Caused seizures Caused seizures Caused seizures ??? Aripiprazole Other (See comments) ??? Venlafaxine Itching CURRENT MEDICATION: Current Outpatient Medications: ??? ALPRAZolam (XANAX) 0.25 mg tablet, Take 0.25 mg by mouth 3 (three) times a day as needed , Disp: , Rfl: ??? ferrous gluconate 324 mg (38 mg of elemental iron) tablet, TAKE 1 TABLET BY MOUTH THREE TIMES ADAY, Disp: 90 tablet, Rfl: 2 ??? hydrOXYchloroQUINE (PLAQUENIL) 200 mg tablet, Take 2 tablets (400 mg total) by mouth daily, Disp: 60 tablet, Rfl: 0 ??? multivitamin capsule, Take 1 capsule by mouth daily, Disp: , Rfl: ??? predniSONE (DELTASONE) 1 mg tablet, prednisone 1 mg tablet TAKE 1 TABLET BY MOUTH EVERY DAY, Disp: , Rfl: ??? predniSONE (DELTASONE) 5 mg tablet, Take 5 mg by mouth, Disp: , Rfl: ??? progesterone (PROMETRIUM) 200 mg capsule, Take by mouth daily, Disp: , Rfl: ??? sertraline (ZOLOFT) 25 mg tablet, Take 1 tablet (25 mg total) by mouth daily, Disp: 30 tablet, Rfl: 5 ??? valACYclovir (VALTREX) 500 mg tablet, TAKE 1 TAB BY MOUTH 3 TIMES DAILY FOR 7 DAYS., Disp: , Rfl: ??? belimumab (Benlysta) auto-injector, Inject 1 mL [...] TIME PER WEEK, Disp: , Rfl: ??? hydrocortisone (CORTEF) 5 mg tablet, Take 2 tabs (10 mg) in morning and 1 tab (5 mg) in afternoon (Patient not taking: Reported on 06/14/2020), Disp: 270 tablet, Rfl: 3 ??? ipratropium (ATROVENT) 0.03 % nasal spray, INSTILL 1 SPRAY IN EACH NOSTRIL TWICE DAILY, Disp: ,Rfl: ??? meclizine (ANTIVERT) 25 mg tablet, Take 1 tablet (25 mg total) by mouth 3 (three) times a day as needed for dizziness (Patient not taking: Reported on 05/14/2020), Disp: 30 tablet, Rfl: 0 ??? omeprazole (PriLOSEC) 20 mg capsule, Take 20 mg by mouth daily, Disp: , Rfl: ??? ondansetron (ZOFRAN) 4 mg tablet, Take 1 tablet (4 mg total) by mouth every 8 (eight) hours as needed for nausea or vomiting (Patient not taking: Reported on 05/14/2020), Disp: 20 tablet, Rfl: 0 ??? propranoloL (INDERAL) 10 mg tablet, Take 10 mg by mouth 3 (three) times a day, Disp: , Rfl: ??? triamcinolone (KENALOG) 0.1 % cream, Apply topically 2 (two) times a day (Patient not taking: Reported on 05/14/2020), Disp: 30 g, Rfl: 0 ??? Ventolin HFA 90 mcg/actuation inhaler, INHALE TWO PUFFS BY MOUTH EVERY FOUR HOURS NEEDED FORWHEEZING/COUGH, Disp: , Rfl: PHYSICAL EXAM: Vitals BP 119/80 Pulse 79 Temp 36.4 ??C (97.5 ??F) Ht 160 cm (5' 3 ) Wt 78.6 kg (173 lb 4.8 oz) LMP (LMP Unknown) BMI 30.70 kg/m?? Physical Exam General examination patient looks cushingoid. She does not have a rash today. Joint examination is essentially within normal limits The no palpable cervical lymph nodes. No oral ulcers RS is clear to auscultation CVS S1-S2 is regular with no rub murmur or gallop LABORATORY DATA: Lab Results Component Value Date WBC 8.6 06/10/2020 HGB 13.1 06/10/2020 HCT 38.1 06/10/2020 MCV 90.5 06/10/2020 LABPLAT 280 06/10/2020 Lab Results Component Value Date AST 19 06/10/2020 ALT 13 06/10/2020 CREATININE 0.55 (L) 06/10/2020 Lab Results Component Value Date SEDRATE 12 05/13/2020 Lab Results Component Value Date CRP 7.5 05/13/2020 ASSESSMENT AND PLAN: SLE In conclusion this is a 29-year-old female with a diagnosis of lupus. She still has not her eyes examined despite reminders , at this point since she has to stop Benlysta we will increase her HCQS to 2 tabs/ 400 mg which she gets for a month hopefully able to finish her eye exam by then Plan would be to do a baby aspirin , pred 5 mg and add AZA 50 mg Hopefully with this we will be able [...] as of this encounter Results * (ABNORMAL) Anti-double stranded DNA antibodies (06/14/2020 4:01 PM CDT) dsDNA Ab 7.0(H) <=4.0 IUnits/mL ARPITA ROSADO Comment: Interpretive Data Negative: < or = 4 IUnits/mL Indeterminate: 5 - 9 IUnits/mL Positive: > or = 10 IUnits/mL Current interpretive data was last revised on 2016. Testing performed by: [facility], [address] [place] [address]., [id number] Blood specimen (specimen) 06/14/2020 4:01 PM CDT 06/14/2020 6:27 PM CDT Carolina Delarosa MD LAB BLOOD ORDERABLES Final Result Performing Organization Address [facility] de Phone Number [facility] [address] [employer]. [facility] [place] [address] * Sjogrens syndrome-B antibody (06/14/2020 4:01 PM CDT) Anti-PHUONG, SS-B <0.2 <=0.9 Ab Index [facility] Comment: Interpretive Data Negative: < 1.0 Ab Index Positive: > or = 1.0 Ab Index Current interpretive data was last revised on 2016. Testing performed by: [facility], [address] [place] [address]., [id number] Blood specimen (specimen) 06/14/2020 4:01 PM CDT 06/14/2020 6:27 PM CDT Carolina Delarosa MD LAB BLOOD ORDERABLES Final Result Performing Organization Address [facility] de Phone Number [facility] [address] [address] [facility]. [facility] [place] [address] * Sjogrens syndrome-A antibody (06/14/2020 4:01 PM CDT) Anti-PHUONG, SS-A <0.2 <=0.9 Ab Index [facility] Comment: Interpretive Data Negative: < 1.0 Ab Index Positive: > or = 1.0 Ab Index Current interpretive data was last revised on 2016. 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 (HCC)- Primary documented in this encounter Discontinued Medications Medication Sig Discontinue Reason Start Date End Da te hydrOXYchloroQUINE (PLAQUENIL) 200 mg tablet TAKE 1 TABLET BY MOUTH EVERY DAY AT NIGHT Reorder 04/05/2020 06/14/2020 documented as of this encounter Care Teams Leather Sprayer Relationship Specialty [place] [address] [address] [facility] [place] [address] PCP - General 07/04/19 [place] [address] [address] [facility] [place] [address] 11/16/18 Ernie Shaw MD [address] [place] [address] [address] [place] [address] Cargo Handler Obstetrics and Gynecology 06/10/20 documented as of this encounter
--- OUTSIDE RECORDS SUMMARY | 2024-02-24 20:09 | XMS_ITS | Encounter Summary ---
Author Organization [facility] Address [address] [place] [address] Phone Care Team Providers Care Real Estate Account Executive Name Role Phone Huseyin Dangelo MD Unavailable [phone] Brian Mon MD Primary Care Provider + Ernie Shaw MD Unavailable [phone] Encounter Details Date Type Department Care Team (Late st Contact Info) Description 06/23/2020 Telephone [facility] Psychiatry [facility] [place] [address] Remedios Nj Social History Tobacco [...] * Telephone Encounter - Remedios Nj - 06/23/2020 10:58 AM CDT ----- Message from Remedios Nj sent at 06/23/2020 10:58 AM CDT ----- Regarding: RE: New pt appt Patient's appointment is scheduled with Dr Brown on 07/01/20 at 10:30 am and instructions have been sent. Thank you! Scheduling Team ----- Message ----- From: Lois Hyde LCSW Sent: 06/22/2020 12:51 PM CDT To: Bishnu Pillai Subject: New pt appt Hello, Can we please schedule this pt for the next available with Dr. Garcia or Nancy? Thanks! Lois documented in this encounter Plan of Treatment Not on file documented as of this encounter Visit Diagnoses Not on filedocumented in this encounter Care Teams Real Estate Account Executive Relationship Specialty [place] [address] [address] [place] [address] PCP - General 07/04/19 [place] [address] [address] [place] [address] 11/16/18 Ernie Shaw MD [address] [place] [address] [address] [facility] [place] [address] Director Clinical Information Services Obstetrics and Gynecology 06/10/20 documented as of this encounter
--- OUTSIDE RECORDS SUMMARY | 2024-02-24 20:09 | XMS_ITS | Encounter Summary ---
Author Organization [facility] [employer] [facility] Address [address] [place] [address] Phone Care Team Providers Care Plant Assigner Name Role Phone Huseyin Dangelo MD Unavailable [phone] Brian Mon MD Primary Care Provider + Ernie Shaw MD Unavailable [phone] Reason for Visit * Reason Onset Date Comments Dizziness 06/21/2020 Encounter Details Date Type Department Care Team (Late st Contact Info) Description 06/21/2020 Telephone [facility] Maternal- Medicine [address] [place] [address] Health 7th Floor [address] [place] [address] Leti Ricks Dizziness Social History [...] * Telephone Encounter - Leti Ricks - 06/21/2020 2:55 PM CDT Pt called to report that she is feeling extremely dizzy and lightheaded and feels like she is goingto pass out. She tells me that she is afraid to leave the house or drive. Pt reports that she been able to eat and drink today and does not feel that is what is causing this feeling. I advised pt that I would recommend that she present to the [facility] here at [facility] and not an outside ER if possible since she has been seen by multiple ER facilities in the last week or so and pt is getting conflicting information. I discussed with her the benefits of continuity of care here at [facility] and recommended that she come here if at all possible. She advised that the last time she was seen they told her nothing was wrong and sent her home. Again I advised that if she continues to feel this way and has eaten and had plenty to drink she should not attempt to drive and should presen to the [facility] for evaluation. I reviewed directions with pt and she verbalized an understanding. documented in this encounter Plan of Treatment Not on file documented as of this encounter Visit Diagnoses Not on filedocumented in this encounter Care Teams Plant Assigner Relationship Specialty [place] [address] [address] [place] [address] PCP - General 07/04/19 [place] [address] [address] [place] [address] 11/16/18 Ernie Shaw MD [address] [place] [address] [address] [place] [address] Store Grocery Merchandiser Obstetrics and Gynecology 06/10/20 documented as of this encounter
--- OUTSIDE RECORDS SUMMARY | 2024-02-24 20:09 | XMS_ITS | Encounter Summary ---
Author Organization [facility] Address [address] [facility] [address] [place] [address] Care Team Providers Care Coin Machine Operator Name Role Phone Huseyin Dangelo MD Unavailable [phone] Brian Mon MD Primary Care Provider + Ernie Shaw MD Unavailable [phone] Reason for Visit * Reason Onset Date Comments Pre Cert 06/17/2020 OB Ultrasound sc heduled 06/18/2020 Encounter Details Date Type Department Care Team (Late st Contact Info) Description 06/17/2020 Telephone [facility] [address] [facility] [address], [place] [address] Ruthy Faith MA Pre Cert (OB Ultrasound scheduled 06/18/2020) Social History Tobacco Use Types Packs/Day Years [...] encounter Miscellaneous Notes * Telephone Encounter - Ruthy Faith MA - 06/17/2020 11:45 AM CDT Patient is scheduled for OB Ultrasound 06/18/2020 Per Jorge @ [facility], no authorization is required. CPT codes: 00213, 16412, 22734, 93497 ICD 10 Code: O20.0 Ref # [id number] documented in this encounter Plan of Treatment Not on file documented as of this encounter Visit Diagnoses Not on filedocumented in this encounter Care Teams Coin Machine Operator Relationship Specialty Start [place] [address] [address] [place] [address] PCP - General 07/04/19 [place] [address] [address] [place] [address] 11/16/18 Ernie Shaw MD [address] [facility] [address] [place] [address] Cash Management Coordinator Obstetrics and Gynecology 06/10/20 documented as of this encounter
--- OUTSIDE RECORDS SUMMARY | 2024-02-24 20:09 | XMS_ITS | Encounter Summary ---
Author Organization [facility] Address [address] [place] [address] Care Team Providers Care Residential Property Manager Name Role Phone Huseyin Dangelo MD Unavailable [phone] Brian Mon MD Primary Care Provider + Ernie Shaw MD Unavailable [phone] Encounter Details Date Type Department Care Team (Late st Contact Info) Description 06/22/[address] [address] Silas Lazo MD [address] [address] Social History Tobacco Use Types [...] as of this encounter Progress Notes * Silas Lazo MD - 06/22/2020 9:37 AM CDT I called Ms. Madison to discuss the specific data from the benlysta registry, ophelia: Data through May 03 N=558 Outcomes 303 pregnancies 79 SAB 3 IUFD 214 live births 199 normal Dandy-walker, extrarenal pelvis, pulmonic stenosis, club foot, heart block No clear pattern or difference difference between SLE ACR- recommends discontinuation After joint counseling Carito has decided to NOT resume Benlysta at this time. If she were to flair, she would consider treatment later in . Silas Lazo MD documented in this encounter Plan of Treatment Not on file documented as of this encounter Visit Diagnoses Not on filedocumented in this encounter Care Teams Residential Property Manager Relationship Specialty [place] [address] [address] [facility] [place] [address] PCP - General 07/04/19 [place] [address] [address] [place] [address] 11/16/18 Ernie Shaw MD [address] [facility] [address] [place] [address] Senior Control Systems Engineer Obstetrics and Gynecology 06/10/20 documented as of this encounter
--- OUTSIDE RECORDS SUMMARY | 2024-02-24 20:09 | XMS_ITS | Encounter Summary ---
Author Organization [facility] [employer] [facility] Address [address] [place] [address] Phone Care Team Providers Care Traffic Rate Computer Name Role Phone Huseyin Dangelo MD Unavailable [phone] Brian Mon MD Primary Care Provider + Reason for Visit * Reason Onset Date Comments Med Management 06/09/2020 Encounter Details Date Type Department Care Team (Late st Contact Info) Description 06/09/2020 Telephone [facility] Rheumatology [address] [facility] Medical Office Building [address] [place] [address] Nallely Griffiths CMA Med Management Social History Tobacco Use Types [...] Telephone Encounter - Nallely Griffiths CMA - 06/09/2020 3:26 PM CDT Pt called with question on Receiving her Benlysta this week. Stated she is in the hospital today [facility]. Per patient she was informed by MFM to get her Benlysta due to her levels being low. Wanted Dr Delarosa to know she is falling to sleep behind the wheel. Patient stated the provider will be sending a email / message directly to Dr Delarosa. Pt aware Dr Delarosa will discuss further in office on Sunday with her and her with next steps during . Dr Delarosa was updated with this call. documented in this encounter Plan of Treatment Not on file documented as of this encounter Visit Diagnoses Not on filedocumented in this encounter Care Teams Traffic Rate Computer Relationship Specialty [place] [address] [address] PCP - General 07/04/19 [place] [address] [address] [address] 11/16/18 documented as of this encounter
--- OUTSIDE RECORDS SUMMARY | 2024-02-24 20:09 | XMS_ITS | Encounter Summary ---
Author Organization [facility] Healthcare Address [address] [place] [address] Care Team Providers Care Registered Occupational Therapist Name Role Phone Huseyin Dangelo MD Unavailable [phone] Brian Mon MD Primary Care Provider + Ernie Shaw MD Unavailable [phone] Reason for Visit * Reason Comments Problem dizziness Encounter Details Date Type Department Care Team (Latest Contact Info) Description 06/23/2020 2:36 PM CDT - 06/23/2020 5:25 PM CDT Hospital Encounter [address] [address] Nathalie Shukla MD [address] [address] Supervision of high-risk , unspecified trimester [...] Sign Reading Time Taken Comments Blood Pressure 127/70 06/23/2020 3:02 PM CDT Pulse 69 06/23/2020 3:16 PM CDT Temperature 36.9 ??C (98.4 ??F) 06/23/2020 2:47 PM CD T Respiratory Rate 18 06/23/2020 2:47 PM CDT Oxygen Saturation 100% 06/23/2020 3:16 PM CDT Inhaled Oxygen Concentration - - Weight 78 kg (172 lb) 06/23/2020 2:47 PM CDT Height 160 cm (5' 3 ) 06/23/2020 2:47 PM CDT Body Mass Index 30.47 06/23/2020 2:47 PM CDT documented in this encounter Discharge Diagnoses Diagnosis Other specified related conditions, first trimester - OTHER SPECIFIED RELATED CONDITIONS, FIRST TRIMESTER Dizziness and giddiness - DIZZINESS AND GIDDINESS Other specified diseases and conditions complicating - OTHER SPECIFIED DISEASES AND CONDITIONS COMPLICATING 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) - GLOMERULAR DISEASE IN SYSTEMIC LUPUS ERYTHEMATOSUS Rheumatoid arthritis, unspecified (HCC) - RHEUMATOID ARTHRITIS, UNSPECIFIED Endocrine, nutritional and metabolic diseases complicating , first trimester - ENDOCRINE, NUTRITIONAL AND METABOLIC DISEASES COMPLICATING , FIRST TRIMESTER Primary adrenocortical insufficiency (HCC) - PRIMARY ADRENOCORTICAL INSUFFICIENCY Glucocorticoid deficiency Other mental disorders complicating , first trimester - OTHER MENTAL DISORDERS COMPLICATING , FIRST TRIMESTER Anxiety disorder, unspecified - ANXIETY DISORDER, UNSPECIFIED related renal disease, first trimester - RELATED RENAL DISEASE, FIRST TRIMESTER Chronic kidney disease, unspecified - CHRONIC KIDNEY DISEASE, UNSPECIFIED Diseases of the respiratory system complicating , first trimester - DISEASES OF THE RESPIRATORY SYSTEM COMPLICATING , FIRST TRIMESTER Unspecified asthma, uncomplicated - UNSPECIFIED ASTHMA, UNCOMPLICATED Personal history of nicotine dependence - PERSONAL HISTORY OF NICOTINE DEPENDENCE 8 weeks gestation of - 8 WEEKS GESTATION OF Other nursing home (current) drug therapy - OTHER ASSOCIATE PROFESSOR OF GEOLOGY (CURRENT) DRUG THERAPY Allergy status to penicillin [...] 12/28/2019 1 documented as of this encounter Ordered Prescriptions Prescription Sig Dispense Quantity Refills Last Filled Start Date End Date hydrOXYzine (ATARAX) 25 mg tablet Take 1 tablet (25 mg total) by mouth 3 (three) times a day as needed for anxiety 90 tablet 06/23/2020 1 hydrOXYzine (ATARAX) 25 mg tablet Take 1 tablet (25 mg total) by mouth 3 (three) times a day as needed for anxiety 90 tablet 06/23/2020 1 documented in this encounter Discharge Disposition Disposition Code Departure Means Destination Discharge to home or self care documented in this encounter H&P Notes * Wendi Ivey NP - 06/23/2020 4:04 PM CDT Obstetrics H&P Chief Complaint: dizzy Estimated Date of Delivery: 01/27/21 Provider: RENETTA HPI: Carito Madison is a 30 y.o. female at 8w6d gestation, dated by 1st trimester ultrasound who presented with complaints of feeling dizzy for several weeks. Pt states she does not feel like herself and is not sure why. Pt questioned whether it is r/t stress vs vertigo vs cortisol abnormality. Reports hx of recurrent ear infections for which she was going to have tubes placed but provider was unable to do so. Denies any bleeding, abd pain, or lof. Denies any recent sick contacts or exposures. 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 [...] MEDICATIONS : ALPRAZolam (XANAX) 0.25 mg tablet azaTHIOprine (IMURAN) 50 mg tablet belimumab (Benlysta) auto-injector bromocriptine (PARLODEL) 2.5 mg tablet busPIRone (BUSPAR) 7.5 mg tablet ergocalciferol (VITAMIN D) 50,000 unit capsule ferrous gluconate 324 mg (38 mg of elemental iron) tablet hydrocortisone (CORTEF) 5 mg tablet hydrOXYchloroQUINE (PLAQUENIL) 200 mg tablet ipratropium (ATROVENT) 0.03 % nasal spray meclizine (ANTIVERT) 25 mg tablet multivitamin capsule omeprazole (PriLOSEC) 20 mg capsule ondansetron (ZOFRAN) 4 mg tablet predniSONE (DELTASONE) 1 mg tablet predniSONE (DELTASONE) 5 mg tablet progesterone (PROMETRIUM) 200 mg capsule propranoloL (INDERAL) 10 mg tablet sertraline (ZOLOFT) 25 mg tablet triamcinolone (KENALOG) 0.1 % cream valACYclovir (VALTREX) 500 mg tablet Ventolin HFA 90 mcg/actuation inhaler Review of Sys: Negative except per HPI Vitals: Temp: [36.9 ??C (98.4 ??F)] 36.9 ??C (98.4 ??F) Pulse: [70-82] 82 Resp: [18] 18 BP: (119-124)/(70-75) 124/75 Physical Exam: General: reports dizziness and has significant anxiety currently. Pt tearful and frustrated. Cardiovascular: Regular rate and rhythm Pulmonary: Clear to ausculation bilaterally Abdomen: Gravid, non-tender Extremities: Warm and well perfused Bilateral ears without redness. Scant fluid to right drum. No e/o acute infection. Speculum Exam: deferred Cervix: / / deferred Monitoring: FHT 165 per [facility] Lab Review Recent Results (from the past 24 hour(s)) POCT glucose Collection Time: 06/23/20 2:56 PM Result Value Ref Range Glucose, POC 96 70 - 199 mg/dL POCT hemoglobin Collection Time: 06/23/20 4:14 PM Result Value Ref Range Hemoglobin POC 11.2 (A) 12.1 - 15.1 g/dL POCT urinalysis dipstick Collection Time: 06/23/20 4:14 PM Result Value Ref Range Color, Urine, POC Yellow Clarity, ur, POC Clear Clear Glucose, ur, POC Negative Negative mg/dL Bilirubin, ur, POC Negative Negative, Small, Moderate, Large Ketones, ur, POC Negative Negative Specific [place], POC 1.015 1.005 - 1.030 Blood, ur, POC Negative Negative pH, ur, POC 7.5 5.0 - 8.0 Protein, ur, POC Negative Negative Urobilinogen, urine, POC 0.2 0.2 - 1.0 mg/dL Nitrite, ur, POC Negative Negative Leukocytes, ur, POC Negative Negative Lot Number [id number] Assessment and Plan Carito Madison is a 30 y.o. female at 8w6d who presented with dizziness. Dizziness EKG NSR Hgb 11.2 Glucose 96 Urine dip unremarkable Neg hallpike. Ear pain/pressure Minimal fluid noted to right drum. No e/o infection Pt states she takes Claritin daily Encouraged to continue Claritin Anxiety Pt takes buspar 7.5 BID Pt has concern for continued anxiety. Pt to start Hydroxyzine at home. Script provided. Plan discussed with Dr. Shukla. Dispo home. Pt has appt with psychiatrist scheduled. Script for hydroxyzine. F/u as scheduled. Wendi Ivey NP 06/23/20 Cosigned by Nathalie Shukla MD at 06/24/2020 9:37 AM CDT Associated attestation - Nathalie Shukla MD - 06/24/2020 9:37 AM CDT I have reviewed the above note for Carito Madison, and I agree with the documentation by the resident/fellow. Nathalie Shukla MD 06/24/2020 documented in this encounter Nursing Notes * Fallon Callahan, RN - 06/23/2020 5:28 PM CDT Arrived in [facility] 3 reporting dizziness and not feeling normal. VS WNL, orthostatics WNL, HGB. 11.2, accucheck 96, EKG NSR. Discharge to home with discharge instructions reviewed with patient. Verbalizes understanding. documented in this encounter Plan of Treatment Pending Results Name Type Priority Associated Diagnoses Date /Time US Ob Limited Imaging IP Routine Supervision of high-risk , unspecified trimester 06/23/2020 5:11 PM CDT documented as of this encounter Procedures Procedure Name Priority Date/Time Associated Diagnosis Comments US OB LIMITED IP Routine 06/24/2020 11:30 AM CDT Supervision of high-risk , unspecified trimester US OB LIMITED IP Routine 06/23/2020 5:11 PM CDT Supervision of high-risk , unspecified trimester Procedure Note - Wendi Ivey NP - 06/23/2020 5:11 PM CDTThis note is in progress. CRL 1.85cm/8w2d FHT 165bpm Wendi Ivey NP POCT URINALYSIS DIPSTICK Routine 06/23/2020 4:14 PM CDT POCT HEMOGLOBIN Routine 06/23/2020 4:14 PM CDT ECG 12-LEAD STAT 06/23/2020 3:21 PM CDT POCT GLUCOSE DEVICE Routine 06/23/2020 2:56 PM CDT documented in this encounter Results [...] IMG OB US PROCEDURES Final Res ult * POCT urinalysis dipstick (06/23/2020 4:14 PM CDT) Color, Urine, POC Yellow Clarity, ur, POC Clear Clear Glucose, ur, POC Negative Negative mg/dL Bilirubin, ur, POC Negative Negative, Small, Moderate, Large Ketones, ur, POC Negative Negative Specific [place], POC 1.015 1.005 - 1.030 Blood, ur, POC Negative Negative pH, ur, POC 7.5 5.0 - 8.0 Protein, ur, POC Negative Negative Urobilinogen, urine, POC 0.2 0.2 - 1.0 mg/dL Nitrite, ur, POC Negative Negative Leukocytes, ur, POC Negative Negative Lot Number [id number] Urine 06/23/2020 4:14 PM CDT us Shaye Cabrera TELEVISION SERVICER POINT OF CARE TEST ORDERAB LES Final Result * (ABNORMAL) POCT hemoglobin (06/23/2020 4:14 PM CDT) [facility] Hemoglobin POC 11.2(A) 12.1 - 15.1 g/dL Capillary blood 06/23/2020 4 :14 PM CDT Shaye Cabrera NP POINT OF CARE TEST ORDERAB LES Final Result * ECG 12 lead (06/23/2020 3:21 PM CDT) [facility] Ventricular Rate EKG/Min 66 BPM [facility] Atrial Rate 66 BPM [facility] [place]-Interval (MSEC) 126 ms [facility] QRS-Interval (MSEC) 76 ms [facility] QT-Interval (MSEC) 398 ms [facility] QTc 417 ms [facility] P [place] 21 degrees [facility] R [place] 31 degrees [facility] T [place] 7 degrees [facility] Diagnosis Normal sinus rhythm with sinus arrhythmia Normal ECG No previous ECGs available Confirmed by WILBERT JACOBS M.D ([id number]) on 06/25/2020 4:03:39 PM [facility] 06/23/2020 3:21 PM CDT 06/25/2020 4:03 PM CDT Wendi Ivey TELEVISION SERVICER ECG ORDERABLES Final Res ult [facility] * POCT glucose (06/23/2020 2:56 PM CDT) [facility] Glucose, POC 96 70 - 199 mg/dL [facility] Blood specimen (specimen) 06/23/2020 2:56 PM CDT 06/23/2020 2:56 PM CDT Nathalie Shukla MD LAB POCT ORDERABLES - ELAINE CE Final Result [facility] [address] [facility] Department [place] [address] documented in this encounter Visit Diagnoses Diagnosis Supervision of high-risk , unspecified trimester- Primary documented in this encounter Discontinued Medications Medication Sig Discontinue Reason Start Date End Da te hydrOXYzine (ATARAX) 25 mg tablet Take 1 tablet (25 mg total) by mouth 3 (three) times a day as needed for anxiety Reorder 06/23/2020 06/23/2020 documented as of this encounter Care Teams Registered Occupational Therapist Relationship Specialty [place] [address] [address] [facility] [place] [address] PCP - General 07/04/19 [place] [address] [address] [facility] [place] [address] 11/16/18 Ernie Shaw MD [address] [place] [address] [address] [place] [address] Cloth Printer Helper Obstetrics and Gynecology 06/10/20 documented as of this encounter
--- OUTSIDE RECORDS SUMMARY | 2024-02-24 20:09 | XMS_ITS | Encounter Summary ---
Author Organization [facility] Address [address] [place] [address] Phone Care Team Providers Care Chemistry Specialist Name Role Phone Huseyin Dangelo MD Unavailable Brian Mon MD Primary Care Provider + Ernie Shaw MD Unavailable [phone] Encounter Details Date Type Department Care Team (Late st Contact Info) Description 06/22/[address] [facility] Rheumatology [address] [facility] Medical Office Building [address] [place] [address] Nallely Griffiths, [facility] [address] High risk medication use (Primary Dx) Social [...] as of this encounter Visit Diagnoses Diagnosis High risk medication use- Primary documented in this encounter Care Teams Chemistry Specialist Relationship Specialty [place] [address] [address] [place] [address] PCP - General 07/04/19 [place] [address] [address] [place] [address] 11/16/18 Ernie Shaw MD [address] [place] [address] [address] [place] [address] Utility Plant Operative Obstetrics and Gynecology 06/10/20 documented as of this encounter
--- OUTSIDE RECORDS SUMMARY | 2024-02-24 20:09 | XMS_ITS | Encounter Summary ---
Author Organization [facility] Address [address] [place] [address] Phone Care Team Providers Care Goodyear Welter Name Role Phone Huseyin Dangelo MD Unavailable [phone] Brian Mon MD Primary Care Provider + Ernie Shaw MD Unavailable [phone] Reason for Visit * Reason Onset Date Comments Treatment Plan Update 06/21/2020 Encounter Details Date Type Department Care Team (Late st Contact Info) Description 06/21/2020 Telephone [facility] Maternal- Medicine [address] [place] [address] Health 7th Floor [address] [place] [address] Leti Ricks Treatment Plan Update Social History Tobacco Use Types Packs/Day [...] Telephone Encounter - Silas Lazo MD - 06/22/2020 11:00 AM CDT No need for ultrasound at this time. * Telephone Encounter - Leti Ricks - 06/22/2020 10:24 AM CDT Hi there, Does Carito need to have an ultrasound with her appt next week? Thank you Kellen * Telephone Encounter - Silas Lazo MD - 06/21/2020 3:38 PM CDT I spoke with Ms. Madison at length over the phone this afternoon. She is not feeling well. She is very fatigued, very lightheaded and having double vision. She is currently on her way to the [facility] to beevaluated. She is frustrated with her this far. She wants to get back on her benlysta andfeels like her adrenal insuffiencey is acting up. I advised her to follow up as scheduled tomorrow with her trouble clerk or present to [facility] if she has any concerning symptoms. We will also attempt to move up her appointment with our service. Silas Lazo MD * Telephone Encounter - Leti Ricks - 06/21/2020 12:52 PM CDT Pt called to see if Dr Lazo has had the chance to discuss Benlysta with her Communications Scientist yettoday. 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 Pt has many questions about this. She was seen in the ER over the weekend due to vomiting and they increased her Prednisone to 20mg. Advised pt that I would get a message to Dr Lazo to check on both of these things. documented in this encounter Plan of Treatment Not on file documented as of this encounter Visit Diagnoses Not on filedocumented in this encounter Care Teams Goodyear Welter Relationship Specialty [place] [address] [address] [facility] [place] [address] PCP - General 07/04/19 [place] [address] [address] [facility] [place] [address] 11/16/18 Ernie Shaw MD [address] [place] [address] [address] [place] [address] Yield Analyst Obstetrics and Gynecology 06/10/20 documented as of this encounter
--- OUTSIDE RECORDS SUMMARY | 2024-02-24 20:09 | XMS_ITS | Encounter Summary ---
Author Organization [facility] Address [address] [place] [address] Phone Care Team Providers Care Sport Internship Name Role Phone Huseyin Dangelo MD Unavailable Brian Mon MD Primary Care Provider + Ernie Shaw MD Unavailable [phone] Reason for Visit * Reason Onset Date Comments Vaginal Bleeding 06/23/2020 Encounter Details Date Type Department Care Team (Late st Contact Info) Description 06/23/2020 Telephone [facility] Maternal- Medicine [address] [place] [address] Health 7th Floor [address] [place] [address] Fariba Chin RN Vaginal Bleeding [...] Telephone Encounter - Fariba Chin RN - 06/23/2020 10:18 AM CDT Carito called today and was transferred from the [facility] our ed transporter to my direct line. She stated she was having some vaginal bleeding and needed an ultrasound performed today. I had seen a message regarding this concern earlier today that my colleague Kellen was working on and had replied to Carito. I asked Carito if she had already spoken to someone regarding what to do moving forward and she stated she had spoke with Kellen through my chart and had gotten one response but didn't know who to call. I put her on hold to review her chart and when I went to speak with her again she had hung up. documented in this encounter Plan of Treatment Not on file documented as of this encounter Visit Diagnoses Not on filedocumented in this encounter Care Teams Sport Internship Relationship Specialty [place] [address] [address] [facility] [place] [address] PCP - General 07/04/19 [place] [address] [address] [facility] [place] [address] 11/16/18 Ernie Shaw MD [address] [place] [address] [address] [place] [address] Personal Property Assessor Obstetrics and Gynecology 06/10/20 documented as of this encounter
--- OUTSIDE RECORDS SUMMARY | 2024-02-24 20:09 | XMS_ITS | Encounter Summary ---
Author Organization [facility] zintin of [facility] Address [address] [place] [address] Phone Care Team Providers Care Campground Attendant Name Role Phone Huseyin Dangelo MD Unavailable [phone] Brian Mon MD Primary Care Provider + Ernie Shaw MD Unavailable [phone] Reason for Referral * Diagnostic Imaging (Routine) - Closed Specialty Diagnoses / Procedures Referred By Contac t Referred To Contact Diagnoses Latia disease (HCC) Lupus History of recurrent miscarriages Supervision of high-risk , unspecified trimester Procedures US Ob Limited Iris Bird MD Phone: tel: fax: [facility] (All Locations) Referral ID Status Reason Start Date Expiration Date Visits Re quested Visits Authorized [id number] Closed 06/11/2020 07/11/2021 1 1 Reason for Visit * Reason Comments Consult * Consultation (Routine) - Closed Specialty Diagnoses / Procedures Referred By Contac t Referred To Contact Maternal and Medicine Diagnoses Latia disease (HCC) Lupus History of recurrent miscarriages Ernie Shaw MD [address] [place] [address] [address] [place] [id number] Phone: tel: fax: [facility] (All Locations) Referral ID Status Reason Start Date Expiration Date V isits Requested Visits Authorized [id number] Closed Specialty Services Required 06/03/2020 02/25/2021 1 12 Encounter Details Date Type Department Care Team (Late st Contact Info) Description 06/11/2020 10:30 AM CDT Office Visit [facility] Maternal- Medicine [address] [facility] [address] [place] [id number] Iris Bird MD [address] [id number] [place] [address] Supervision of high-risk , unspecified trimester (Primary Dx); [place] disease (CMS/HCC); Lupus (CMS/HCC); History of recurrent miscarriages; Generalized anxiety disorder; Miscarriage Social History Tobacco Use Types Packs/Day Years [...] Sign Reading Time Taken Comments Blood Pressure 120/71 06/11/2020 10:19 AM CDT Pulse 97 06/11/2020 10:19 AM CDT Temperature - - Respiratory Rate - - Oxygen Saturation 98% 06/11/2020 10:19 AM CDT Inhaled Oxygen Concentration - - Weight 79.4 kg (175 lb) 06/11/2020 10:19 AM CDT Height 160 cm (5' 3 ) 06/11/2020 10:19 AM CDT Body Mass Index 31 06/11/2020 10:19 AM CDT documented in this encounter Ordered Prescriptions Prescription Sig Dispense Quantity Refills Last Filled Start Date End Date sertraline (ZOLOFT) 25 mg tablet Take 1 tablet (25 mg total) by mouth daily 30 tablet 5 06/11/2020 07/15/2020 documented in this encounter Progress Notes * Leti Ricks - 06/11/2020 10:30 AM CDT Referral To [facility] Carito Spence 1990 *Note: patient must first accept and consent to this referral prior to submission. [facility] typically calls patients within 1 week of receipt of referral* Referral Reason: Requesting therapy services Patient Referral Source: MATERNAL MEDICINE Status: 7wks, EDC 01/27/21, /Para: G 3 P0 Mental Health Hx/Dx: anxiety, starting on Sertraline today Current Sx/Functional Difficulties: previous loss Most recent EPDS Date, if administered:na Score: na SI/HI: na Safety Planning: na Leti Ricks * Silas Lazo MD - 06/11/2020 10:30 AM CDT Maternal Medicine Consult Note Reason for Consult: Lupus Requesting Provider: Ernie Shaw Dear Dr. Shaw, We had the pleasure of seeing your patient Carito Spence in our office today. As you know, she is a 30 y.o. at 7w1d by LMP consistent with 1st trimester Ultrasound here today for a consult regarding SLE. Her is also complicated by latia's disease, anxiety, and prior 16 week loss. Today she is doing well, she reports no bleeding, no contractions, no cramping and no leaking. Patient Active Problem List Diagnosis Code ??? Laceration of flexor muscle, fascia and tendon of right little finger at wrist and hand level, initial encounter S66.126A ??? Cough R05 ??? Lupus (CMS/HCC) M32.9 ??? Miscarriage O03.9 ??? Tachycardia R00.0 ??? Nausea and vomiting R11.2 ??? Epigastric pain R10.13 ??? Gastroesophageal reflux disease K21.9 ??? Diarrhea R19.7 ??? Abdominal pain R10.9 ??? Liver lesion K76.9 ??? BMI 29.0-29.9,adult Z68.29 ??? Nausea with vomiting R11.2 ??? AP (abdominal pain) R10.9 ??? 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 Microcytic anemia D50.9 ??? Joint pain M25.50 ??? Anti-RECEIVING [employer]ARN CUSTODIAN antibodies present R76.8 ??? Adrenal insufficiency (CMS/HCC) E27.40 ??? Bilateral chronic serous otitis media H65.23 ??? Right carpal tunnel syndrome G56.01 ??? [place] disease (CMS/HCC) E27.1 ??? Supervision of high-risk , unspecified trimester O09.90 ??? Generalized anxiety disorder F41.1 Past Medical History: Diagnosis Date ??? Anemia [...] median nerve repair, allograft nerve wrap application Past Gynecologic History: No LMP recorded (lmp unknown). Patient is ., Menses: irregular, Prior STIs: none. Her last pap smear was insuficient. Prior control methods: nothing. She has no history of infertility, ART treatment, gynecologic surgery, or breast cancer. She has no history of blood transfusions. OB History Para Term AB Living 3 1 1 1 SAB TAB Ectopic Multiple Live Births 1 1 # Outcome Date GA Lbr Rojas/2nd Weight Sex Delivery Anes PTL Lv 3 Current 2 20w0d ND 1 SAB Medications: Scheduled Meds: Continuous Infusions:No current facility-administered medications for this visit. PRN Meds:. Family History: Family History Problem Relation Age of Onset ??? Gout Mother ??? Diabetes Mother ??? Hypertension Mother ??? Heart disease Father ??? Stroke Father ??? Colon cancer Other Specifically, she denies a family history of defects including spina bifida, congenital heartdefects, limb defects, or kidney defects. She denies a family history of genetic abnormalities including Down Syndrome, cognitive delays, or learning disabilities including autism spectrum disorders.She denies a family history of inherited disorders including cystic fibrosis, thalassemia, sickle cell disease, or muscular dystrophy. Allergies Allergen Reactions ??? Methylprednisolone Anaphylaxis and Syncope Syncope ??? Penicillins Hives and Rash ??? Amoxicillin Rash ??? Escitalopram Other (See comments) and Rash Caused seizures Caused seizures Caused seizures ??? Aripiprazole Other (See comments) ??? Venlafaxine Itching Social History Socioeconomic History ??? Marital status: [...] night ??? Sexual activity: Yes Partners: Male Dating: No LMP recorded (lmp unknown). Patient is . > MANE unk 1st trimester ultrasound 7.1 > MANE 01/27/2021 Review of Systems Review of systems per HPI and otherwise all systems are negative Physical Exam Vitals BP 120/71 Pulse 97 Ht 160 cm (5' 3 ) Wt 175 lb (79.4 kg) LMP (LMP Unknown) SpO2 98% BMI 31.00 kg/m?? General: Healthy, alert, active, cooperative, and in no distress Heart Rate: 135 Labs: Reviewed Ultrasound at our [facility]: Ultrasound 06/11/2020: 7w1d CRL 01/27/21 Assessment: Ms. Carito Spence is a manohar 30 y.o. at 7w5d by LMP consistent with 1st trimester Ultrasound here today for a consult regarding SLE. Her is also complicated by latia's disease, anxiety, and prior 16 week loss. 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 She is maintained on 5mg daily of prednisone. Shewas transitioned to hydrocortisone when she found out the was . She reports she has not tolerated this treatment very well. We discussed that prednisone use in may increase her risk of gestational diabetes. We also discussed that she will need stress dose steroids at delivery given her adrenal insufficiency. We reviewed the literature on prednisone in ([id number]) and that the most recent publications have not found a link between prednisone use and cleft lip/palate. Given this and her poor tolerance of the hydrocortisone, she prefers to switch back to prednisone. We agree with this decision. Plan: -Specialized anatomy -Early 1 hr gtt -follow with endo -stress dose steroids at delivery Relevant Orders US Ob Limited Immune Lupus ([facility]) Overview Ms. Spence and Chris reviewed the expected course and management of lupus in . We discussed that lupus flares are reported to occur in up to 50% of the time; however, this is dependenton disease status at the beginning of . As Ms. Spence has been in remission for over 6 months, her risk of having a flare during is lower, about 7-33%. She is additionally at risk for hypertensive disorders of , VTE, hemorrhage, and delivery. Studies have shown that in the absence of renal disease, 13% of women with lupus will develop preeclampsia during . We reviewed the well-known safety profile of Plaquenil in and stressed the importance of medical adherence to ensure control of her disease. We also discussed Benlysta use in . This monoclonal antibody has limited data. The largest case series of patients is without a comparator population and thus it is difficult to draw safety conclusions from that data. There are multiple case reports of successful use in pregnancywithout maternal or complication. We discussed that there are hypothetical risks of this poorly studied treatment but that the benefits of well controlled disease are unquestionable. After prolonged discussion this patient would prefer to continue her infusion. We support that decision and agree that in her case, the benefits outweigh the risks. In terms of risk, pregnancies in patients with lupus are more likely to be complicated by loss, IUGR, and delivery (both iatrogenic and spontaneous). Additionally, the patient is not positive for Anti-Ro/SSA and/or Anti-La/SSB antibodies. Structural anomalies are not typically associated with lupus. Additionally, scalp and periorbital rash has been reported in cases of lupus, that may or may not be present at delivery, and usually develops after UV light exposure. The rash almost always resolves spontaneously in about 6-8 months, due to the half-life of IgG antibodies. Other rare manifestations include hepatobiliary disease and hematologic abnormalities. surveillance starting at 32 weeks, and monthly ultrasounds to follow growth until delivery are also recommended in this setting. Strict precautions and close followup by Rheumatology and Maternal- Medicine is recommended during , in addition to medical adherence to her Plaquenil. Given the increased risk for renal disease and preeclampsia, we recommend sending a baseline preeclampsia workup, including a 24 hoururine in the first trimester, in addition to starting ASA 81mg at 12 wks. Plan: -continue plaquenil and benlysta -Serial growths - testing at 32 weeks -81 mg ASA at 12 weeks -BMP q trimester for renal surveillance. -Baseline preElabs Relevant Medications predniSONE (DELTASONE) 5 mg tablet predniSONE (DELTASONE) 1 mg tablet Other Relevant Orders US Ob Limited Other Miscarriage Overview Ms spence reports the loss of a 5 week and a 16 week . She delivered the 16 weekpregnancy while on the toilet at home. The pathology report is not detailed, but she was told therewas complete placental separation. Images of the passed tissue seems consistent with an [id number] week loss and potentially passed for some period of time. I provide these details to clarify that I believe this was a miscarriage and unlikely to represent cervical insufficiency. She has had APLS and thrombophilia evaluation, both of which were normal. Plan: -16 week cervical length Generalized anxiety disorder Overview Ms spence reports [...] good data for its use in . The risks of depression and SSRI exposure have been explored by multiple studies, but theresults from these studies are conflicting and limited by confounders. Maternal depression has beenassociated with increased risk of and IUGR/SGA in some studies. Sertraline, in general, has not been shown to increase risk of teratogenicity, stillbirth/infant mortality, or major congenital anomalies. However, there may be an increased association of SSRI use with , low weight, and preeclampsia. behavioral syndrome may be seen in infants exposed to SSRIs, although the course is usually mild and short. Additionally, a 2-fold increased risk for persistent pulmonary hypertension has been seen in a large meta-analysis of these infants, although the absolute risk was still low (3.0 per 1000 live births). Furthermore, the available long-term data on these infants is conflicting. Some studies suggest associations with behavioral pathology (anx iety, depression, ADHD, autism) in the infants of depressed mothers or with exposure to SSRIs. However, these studies are small and limited, and the causative etiology of these outcomes is unclear. For these reasons, if weaning from SSRIs is not possible due to the severity of maternal depression, the smallest effective dose of SSRIs is recommended in , with regular psychiatricfollow-up. Plan: -[facility] referral -Zoloft 25 mg/day (patient did not tolerate)-> psych referral Relevant Medications sertraline (ZOLOFT) 25 mg tablet Supervision of high-risk , unspecified trimester - Primary Overview SEROLOGIES NEEDED [x] Co-management vs. [] Full [facility] Care; [] Red Team [] Blue Team Referring Provider: Ernie Shaw [phone] [x] Dating Criteria: US 06/04/20 with MANE 01/30/21 [] Labs: Rh [ ], Ab [ ], Rubella [ ], HIV [ ], HepBSAg [ ], RPR [ ], GC/CT [negative/negative] [] Genetic Screening: Desires cffDNA, precert pending [] CBC/Hgb [x] Early 1hr GTT (if indicated) [] UCx: [x] Pap: 05/31/20 unsatisfactory for evaluation due to insufficient squamous cellularity [x] LD ASA (if indicated) starting at 12 weeks: [] EPDS [ ]; [facility] referral (if indicated) 2nd Tri Labs: [] Anatomy ultrasound: [] CBC/1hr gtt at 24-28wks: [] Flu Shot (Oct-Jan): [] Tdap (27-36wks): [] COVID Vaccine: [] Rhogam at 28 wks (if Rh neg): 3rd Tri Labs: [] CBC/HIV/RPR/T&S: [] GBS: [] GC/CT (if indicated): [] COVID testing: Counselling [] MOD: [] Place of delivery: [] MOC: [] Method of feeding: [] Licensed Insurance Sales Agent: [] PP Depression Discussed: [x] COVID VACCINE: received 1st Pfizer dose, not interested in 2nd shot after counseling Relevant Orders US Ob Limited Protein / creatinine ratio, urine, random (Completed) Thank you for involving the Maternal- Medicine practice in the care of this manohar patient. Inthe interim, Ms. Spence should continue her routine care with you. We would like to see Ms. Spence again in approximately 4 weeks' time. Should you have any further questions or concerns, please do not hesitate to contact our office. She was seen and examined with Dr. Bird who is in agreement with the documented assessment and plan. Cosigned by Iris Bird MD at 06/21/2020 1:37 PM CDT Associated attestation - Iris Bird MD - 06/21/2020 1:37 PM CDT I have seen and examined the patient. I agree with the findings and plan of care as documented in the resident/fellow's note. documented in this encounter Plan of Treatment Not on file documented as of this encounter Results * US Ob Limited (07/08/2020 2:15 PM CDT) Anatomical Region Laterality Modality Abdomen N/A Ultrasound 07/08/2020 2:59 PM CDT Narrative 07/08/2020 3:35 PM CDT There are no Discrete Measurement Components for this test result - Please see .pdf Procedure Note Moose Montoya MD - 07/08/2020 There are no Discrete Measurement Components for this test result - Pleasesee .pdf Result [facility] Iris Bird MD IMG OB US PROCEDURES Final Result * Protein / creatinine ratio, urine, random (06/11/2020 4:25 PM CDT) Protein, ur, quant 32.4 mg/dL [facility] Comment: Interpretive Data No reference range established. Current interpretive data was last revised 2018. Creatinine Ur 355.2 mg/dL [facility] Comment: Interpretive Data No reference range established. Current interpretive data was last revised 2018. Protein/creatinin e ratio 91.2 0.0 - 180.0 mg/g CR [facility] Urine 06/11/2020 4:25 PM CDT 06/11/2020 4:58 PM CDT Result [facility] Iris Bird MD LAB URINE ORDERABLES Final Result [facility] Department [place] [address] documented in this encounter Visit Diagnoses Diagnosis Supervision of high-risk , unspecified trimester- Primary [place] disease (HCC) Glucocorticoid deficiency Lupus Systemic lupus erythematosus History of recurrent miscarriages Generalized anxiety disorder Miscarriage Unspecified spontaneous without mention of complication [place] disease (HCC) Glucocorticoid deficiency Lupus Systemic lupus erythematosus History of recurrent miscarriages Supervision of high-risk , unspecified trimester documented in this encounter Discontinued Medications Medication Sig Discontinue Reason Start Date End Da te diclofenac sodium (VOLTAREN) 1 % gel APPLY 2 GRAMS TOPICALLY TO ARTHRITIS JOINTS 3 TIMES A DAY NEEDED Therapy completed 12/11/2019 06/11/2020 documented as of this encounter Historical Medications * This list may reflect changes made after this encounter. progesterone (PROMETRIUM) 200 mg capsule Take by mouth daily 06/01/2020 1 predniSONE (DELTASONE) 1 mg tablet prednisone 1 mg tablet TAKE 1 TABLET BY MOUTH EVERY DAY 1 predniSONE (DELTASONE) 5 mg tablet Take 5 mg by mouth 11/11/2019 1 added in this encounter Orders Outpatient Referral Count Last Ordered Date Fir st Ordered Date AMB REFERRAL TO MATERNAL AND MEDICINE 1 06/11/2020 documented in this encounter Care Teams Campground Attendant Relationship Specialty [place] [id number] [place] [address] PCP - General 07/04/19 [place] [id number] [place] [address] 11/16/18 Ernie Shaw MD [address] [place] [address] [address] [place] [address] Padded Products Inspector Trimmer Obstetrics and Gynecology 06/10/20 documented as of this encounter
--- OUTSIDE RECORDS SUMMARY | 2024-02-24 20:09 | XMS_ITS | Encounter Summary ---
Author Organization [facility] Address [address] [place] [address] Care Team Providers Care Hoop Punch And Coiler Operator Name Role Phone Huseyin Dangelo MD Unavailable [phone] Brian Mon MD Primary Care Provider + Ernie Shaw MD Unavailable [phone] Reason for Visit * Reason Comments Vaginal Bleeding Encounter Details Date Type Department Care Team (Late st Contact Info) Description 06/10/2020 8:54 AM CDT - 06/10/2020 11:50 AM CDT Emergency [facility] Emergency Department [address] [place] [address] Dalila Bradford MD [address] [place] [id number] Threatened miscarriage in early (Primary Dx) Discharge Disposition: Discharge to home [...] Sign Reading Time Taken Comments Blood Pressure 121/82 06/10/2020 8:51 AM CDT Pulse 77 06/10/2020 8:51 AM CDT Temperature 37 ??C (98.6 ??F) 06/10/2020 8:51 AM CDT Respiratory Rate 14 06/10/2020 8:51 AM CDT Oxygen Saturation 100% 06/10/2020 8:51 AM CDT Inhaled Oxygen Concentration - - Weight - - Height - - Body Mass Index - - documented in this encounter Discharge Diagnoses Diagnosis Threatened - THREATENED Less than 8 weeks gestation of - LESS THAN 8 WEEKS GESTATION OF Primary adrenocortical insufficiency (HCC) - PRIMARY ADRENOCORTICAL INSUFFICIENCY Glucocorticoid deficiency Major depressive disorder, single episode, unspecified - MAJOR DEPRESSIVE DISORDER, SINGLE EPISODE, UNSPECIFIED Anxiety disorder, unspecified - ANXIETY DISORDER, UNSPECIFIED Unspecified asthma, uncomplicated - UNSPECIFIED ASTHMA, UNCOMPLICATED Rheumatoid arthritis, unspecified (HCC) - RHEUMATOID ARTHRITIS, UNSPECIFIED 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 * Threatened Miscarriage (Advertising Writer) (Kiswahili) documented in this encounter Medications at Time [...] documented in this encounter ED Notes * Dalila Bradford MD - 06/10/2020 9:56 AM CDT Triage Chief Complaint: Chief Complaint Patient presents with ??? Vaginal Bleeding Portions of the record may have been created with voice recognition software. Occasional wrong-word or '[id number]' substitutions may have occurred due to the inherent limitations of voice recognition software. Read the chart carefully and recognize, using context, where substitutions have occurred. H&P: Carito Madison is a 30 y.o. female with h/o lupus and [place]'s disease as well as anxiety and previous miscarriages, G 3 P 0020 at 6 weeks 5 days by 1st trimester ultrasound presents for vaginal bleeding and abdominal cramping radiating down the legs that became worse yesterday after being seenby OB. Patient had live IUP yesterday. She has been getting serial HCGs. She has had multiple ultrasounds. She is very nervous she is going to have a miscarriage. This was an unplanned . Shehad previously been trying to get but could not and had given up and then became .So while on planned, it is a desired . She has appointment with Maternal- Medicine nessa claros. Vaginal bleeding is small spotting in nature. Not passing large clots or tissue. She was having tender breasts and there are no longer tender and she is very concerned she is having miscarriage and has presented today to get repeat ultrasound and hCG. Denies any fever. Was treated for yeast infection prior to knowing she was and at that time was having white discharge and itching. She is no longer having any of those symptoms. No vomiting or diarrhea. No dysuria frequency urgency. Reports feeling very anxious. Says that she has already had discussion with physician and that she has been taking her Xanax as prescribed because with informed decision making with her OB itis thought that the benefit to her outweighs the risk. ROS: At least 10 systems reviewed and [...] allograft nerve wrap application HOME MEDICATIONS : ALPRAZolam (XANAX) 0.25 mg [...] mg tablet Ventolin HFA 90 mcg/actuation inhaler Allergies Allergen Reactions ??? Methylprednisolone Anaphylaxis and Syncope Syncope ??? Penicillins Hives and Rash ??? Amoxicillin Rash ??? Escitalopram Other (See comments) and Rash Caused seizures Caused seizures Caused seizures ??? Aripiprazole Other (See comments) ??? Venlafaxine Itching Social history: Accompanied by Nursing Notes Reviewed. Physical Exam: ED Triage Vitals [06/10/20 0851] Temp Pulse Resp BP SpO2 37 ??C (98.6 ??F) 77 14 121/82 100 % Temp src Heart Rate Source Patient Position BP Location FiO2 (%) Temporal -- -- -- -- GENERAL APPEARANCE: Awake and alert. No acute distress. HEAD: Atraumatic. EYES: Sclera anicteric. EOMI. ENT: Tolerates saliva. NECK: Supple. Trachea midline. HEART: RRR. Radial pulses 2+. LUNGS: Respirations unlabored. CTAB. ABDOMEN: Soft. Non-tender. No guarding or rebound. EXTREMITIES: No acute deformities. SKIN: Warm and dry. NEUROLOGICAL: No gross facial drooping. Moves all 4 extremities spontaneously. Normal speech and mental status. No ataxia noted. PSYCHIATRIC: Anxious affect. Not responding to internal stimuli. I have reviewed and interpreted all of the currently available lab results from this visit (if applicable): Labs Reviewed COMPREHENSIVE METABOLIC PANEL - Abnormal Result Value Sodium 138 Potassium, pl 3.8 Chloride 102 CO2 26 Anion gap 10 BUN 10 Creatinine 0.55 (*) Glucose 84 Calcium 9.5 Bilirubin, total 0.3 Protein, pl 7.0 Albumin 3.9 Alk phos 49 ALT 13 AST 19 HCG, BLOOD, QUANTITATIVE - Abnormal hCG, quant 72,212.0 (*) CBC WITH AUTO DIFFERENTIAL WBC 8.6 Hgb 13.1 Hct 38.1 Plt 280 MPV 9.4 RBC 4.21 MCV 90.5 MCH 31.1 MCHC 34.4 RDW CV 12.5 RDW SD 41.0 NRBC abs 0.00 DIFFERENTIAL AUTO Neutrophil abs 5.8 Imm gran abs 0.0 Lymphocyte abs 1.9 Monocyte abs 0.7 Eosinophil abs 0.1 Basophil abs 0.0 Neutrophil pct 68.1 Imm gran pct 0.2 Lymphocyte pct 22.3 Monocyte pct 7.6 Eosinophil pct 1.3 Basophil pct 0.5 EGFR GFR 128 Radiographs (if obtained): Report Reviewed: US Ob Under 14 Weeks W Endovaginal Final Result Single live intrauterine gestation with estimated gestational age 6 weeks and 5 days and heart rate 116 bpm. This is concordant with the date of the patient's last menstrual period. Small subchorionic hemorrhage. Electronically signed by: Supriya Gomez MD EKG (if obtained): (All EKGs are interpreted by myself in the absence of a pipe liner) Procedures Chart review shows: ED course/MDM: Vitals: 06/10/20 0851 BP: 121/82 Pulse: 77 Resp: 14 Temp: 37 ??C (98.6 ??F) TempSrc: Temporal SpO2: 100% ED Course as of Jun 10 1440 Time: 06/11 943 Comment: Patient had blood type done at [facility] on 06/01/2020 and patient is A positive which was able to show me on her phone, no need to repeat type and screen today. By: Dalila Bradford MD MDM: Patient's blood type is A-positive. No indication for RhoGAM. Imaging obtained per patient's request given her severe anxiety related to threatened A/B. Patient's results returned. She has my chart was able to review them herself. She felt comfortable leaving at that time before the nurse was able to give her her paperwork. So she eloped from the emergency department prior to being given her discharge paperwork. Since there is no indication for admission or emergent medical condition identified at this time, no reason to call back or have her return to the ED. Patient has good follow-up with M tomorrow. Hemodynamically stable and appropriate for outpatient follow-up. Clinical Impression: 1. Threatened miscarriage in early Disposition: Discharge (Please note that portions of this note may have been completed with a voice recognition program. E Commerce Merchandising Coordinator errors occur. Please contact me for any clarification.) Dalila Bradford MD 06/10/20 1444 * Ann Tabares RN - 06/10/2020 9:00 AM CDT Per patient she was seen at the Emergency Room at [place] yesterday for extreme cramping. Denied any bleeding at the time. She states this is what happened last time I had a miscarrage Patient states she had positive FHT yesterday. After her discharge from [facility] she did have some spotting. She denies any bleeding today. States I have an appoinment with [facility] tomorrow. I just want an ultrasound to make sure it still has a heartbeat * Harpal Fontenot RN - 06/10/2020 8:48 AM CDT Pt presents to the ED for a possible miscarriage. Pt complains . Pt states she is 6.5 weeks . Pt complains of bleeding and cramping documented in this encounter Plan of Treatment Not on file documented as of this encounter Procedures Procedure Name Priority Date/Time Associated Diagnosis Comments US OB UNDER 14 WEEKS W ENDOVAGINAL ED 06/10/2020 11:01 AM CDT EGFR STAT 06/10/2020 9:18 AM CDT DIFFERENTIAL AUTO STAT 06/10/2020 9:1 8 AM CDT CBC WITH AUTO DIFFERENTIAL STAT 06/10/2020 9:18 AM CDT HCG, BLOOD, QUANTITATIVE STAT 06/10/2020 9:18 AM CDT COMPREHENSIVE METABOLIC PANEL STAT 06/10/2020 9:18 AM CDT documented in this encounter Results * US Ob Under 14 Weeks W Endovaginal (06/10/2020 11:01 AM CDT) Anatomical Region Laterality Modality Abdomen N/A Ultrasound 06/10/2020 11:1 4 AM CDT Impressions 06/10/2020 11:17 AM CDT Single live intrauterine gestation with estimated gestational age 6 weeks and 5 days and heart rate 116 bpm. ??This is concordant with the date of the patient's last menstrual period. Small subchorionic hemorrhage. Electronically signed by: Supriya Gomez MD Narrative 06/10/2020 11:17 AM CDT EXAMINATION: US OB UNDER 14 WEEKS W ENDOVAGINAL ORDERING HEALTHCARE PROVIDER: DALILA BRADFORD HISTORY: Threatened miscarriage. Light abdominal cramping since yesterday. ?? COMPARISON: None TECHNIQUE: Multiple sonographic images of the pelvis FINDINGS: Clinical gestational age is 6 weeks and 4 days with EDC of 01/30/2021. Estimated Gestational Age (crown rump length): 8 mm EDC: 01/29/2021 giving a sonographic age of 6 weeks and 5 days. Heart Rate: 116 bpm Adjacent to the gestational sac, there is a small subchorionic hemorrhage measuring 1.6 x 1.0 x 1.0 cm. The maternal ovaries are visualized. The cervix is closed measuring 3.8 cm. Procedure Note Supriya Gomez MD - 06/10/2020 EXAMINATION: US OB UNDER 14 WEEKS W ENDOVAGINAL ORDERING HEALTHCARE PROVIDER: DALILA BRADFORD HISTORY: Threatened miscarriage. Light abdominal cramping since yesterday. COMPARISON: None TECHNIQUE: Multiple sonographic images of the pelvis FINDINGS: Clinical gestational age is 6 weeks and 4 days with EDC of 01/30/2021. Estimated Gestational Age (crown rump length): 8 mm EDC: 01/29/2021 giving a sonographic age of 6 weeks and 5 days. Heart Rate: 116 bpm Adjacent to the gestational sac, there is a small subchorionic hemorrhage measuring 1.6 x 1.0 x 1.0 cm. The maternal ovaries are visualized. The cervix is closed measuring 3.8 cm. IMPRESSION: Single live intrauterine gestation with estimated gestational age 6 weeks and 5 days and heart rate 116 bpm. This is concordant with the date of the patient's last menstrual period. Small subchorionic hemorrhage. Electronically signed by: Supriya Gomez MD us Dalila Bradford MD IMG OB US PROCEDURES Fin al Result * eGFR (06/10/2020 9:18 AM CDT) eGFR 128 mL/min/1.7 3 m2 [facility] ([place]) Comment: Interpretive Data Reference Interval Normal [...] was last reviewed 2020 Blood specimen (specimen) 06/10/2020 9:18 AM CDT 06/10/2020 9:21 AM CDT us Dalila Bradford MD LAB BLOOD ORDERABLES Fin al Result [facility] ([place]) [facility] Department [place] [address] * Differential, auto (06/10/2020 9:18 AM CDT) Neutrophil abs 5.8 1.7 - 6.5 K/cumm [facility] ([place]) Imm gran abs 0.0 0.0 - 0.1 K/cumm [facility] ([place]) Lymphocyte abs 1.9 0.8 - 3.3 K/cumm [facility] ([place]) Monocyte abs 0.7 0.2 - 0.8 K/cumm [facility] ([place]) Eosinophil abs 0.1 0.0 - 0.5 K/cumm [facility] ([place]) Basophil abs 0.0 0.0 - 0.1 K/cumm [facility] ([place]) Neutrophil pct 68.1 % [facility] ([place]) Comment: Interpretive [...] was last revised on 2017. Lymphocyte pct 22.3 % [facility] ([place]) Comment: Interpretive Data Percent cell count reference ranges are not reported, since discordance with absolute values may lead to misinterpretation of CBC data. Current Interpretive Data was last revised on 2017. Monocyte pct 7.6 % [facility] ([place]) Comment: Interpretive Data Percent cell count reference ranges are not reported, since discordance with absolute values may lead to misinterpretation of CBC data. Current Interpretive Data was last revised on 2017. Eosinophil pct 1.3 % [facility] ([place]) Comment: Interpretive [...] last revised on 2017. Blood specimen (specimen) 06/10/2020 9:18 AM CDT 06/10/2020 9:21 AM CDT us Dalila Bradford MD LAB BLOOD ORDERABLES Fin al Result [facility] ([place]) [facility] Department [place] [address] * (ABNORMAL) hCG, blood, quantitative (06/10/2020 9:18 AM CDT) Pathologist [facility] hCG, quant 72,212.0( H) 0.0 - 5.0 IUnits/L [facility] ([place]) Comment: Interpretive Data Non- Female premenopausal: < or = 5.0 IUnits/L Men: < 5.0 IUnits/L Weeks of Gestation ? Reference Interval ?? 3 to 6 ? 5.8-31,795 IUnits/L ?? 7 to 10 ? 3,697-186,977 IUnits/L ??12 to 15 ?27,832- 70,791 IUnits/L ??16 to 18 ? 9,040- 58,179 IUnits/L Current Interpretive Data was last revised on 2017. Blood specimen (specimen) 06/10/2020 9:18 AM CDT 06/10/2020 9:21 AM CDT us Dalila Bradford MD LAB BLOOD ORDERABLES Fin al Result [facility] ([place] Department [place] [address] * (ABNORMAL) Comprehensive metabolic panel (06/10/2020 9:18 AM CDT) Pathologist [facility] Sodium 138 135 - 145 mmol/L [facility] ([place]) Potassium, pl 3.8 3.3 - 4.9 mmol/L [facility] ([place]) Chloride 102 97 - 110 mmol/L [facility] ([place]) CO2 26 22 - 32 mmol/L [facility]) Anion gap 10 2 - 15 mmol/L [facility] ([place]) BUN 10 8 - 25 mg/dL [facility] ([place]) Creatinine 0.55(L) 0.60 - 1.10 mg/dL [facility] ([place]) Glucose 84 70 - 199 mg/dL [facility] ([place]) Comment: Interpretive Data Fasting glucose [...] 1.2 mg/dL [facility] ([place]) Protein, pl 7.0 6.5 - 8.5 g/dL [facility] ([place]) Albumin 3.9 3.5 - 5.0 g/dL [facility] ([place]) Alk phos 49 40 - 130 Units/L [facility] ([place]) ALT 13 7 - 45 Units/L [facility] ([place]) AST 19 10 - 45 Units/L [facility] ([place]) Comment: Hemolysis present. ??Results may be affected. Slightly Hemolyzed Specimen Blood specimen (specimen) 06/10/2020 9:18 AM CDT 06/10/2020 9:21 AM CDT us Dalila Bradford MD LAB BLOOD ORDERABLES Fin al Result [facility] ([place]) [facility] Department [place] [address] * CBC with auto differential (06/10/2020 9:18 AM CDT) WBC 8.6 3.8 - 9.9 K/cumm [facility] ([place]) Hgb 13.1 11.9 - 15.5 g/dL [facility] ([place]) Hct 38.1 35.6 - 45.5 % [facility] ([place]) Plt 280 150 - 400 K/cumm [facility] ([place]) MPV 9.4 9.1 - 12.3 fL [facility] ([place]) RBC 4.21 3.90 - 5.20 M/cumm [facility] ([place]) MCV 90.5 81.3 - 96.4 fL [facility] ([place]) MCH 31.1 27.1 - 33.3 pg [facility] ([place]) MCHC 34.4 32.3 - 35.7 g/dL [facility] ([place]) RDW CV 12.5 11.1 - 14.9 % [facility] ([place]) RDW SD 41.0 35.7 - 48.1 fL [facility] ([place]) NRBC abs 0.00 0.00 - 0.01 K/cumm [facility] ([place]) Blood specimen (specimen) 06/10/2020 9:18 AM CDT 06/10/2020 9:21 AM CDT us Dalila Bradford MD LAB BLOOD ORDERABLES Fin al Result Performing Organization Address City/State/[facility] Co de Phone Number [facility] ([place]) [facility] Department [place] [address] documented in this encounter Visit Diagnoses Diagnosis Threatened miscarriage in early - Primary documented in this encounter Care Teams Hoop Punch And Coiler Operator Relationship Specialty [place] [address] [address] [place] [address] PCP - General 07/04/19 [place] [address] [facility] [place] [address] 11/16/18 Ernie Shaw MD [address] [place] [address] [address] [place] [address] Burlap Spreader Obstetrics and Gynecology 06/10/20 documented as of this encounter
--- OUTSIDE RECORDS SUMMARY | 2024-02-24 20:09 | XMS_ITS | Encounter Summary ---
Author Organization [facility] Address [address] [place] [address] Care Team Providers Care Dry Room Attendant Name Role Phone Huseyin Dangelo MD Unavailable [phone] Brian Mon MD Primary Care Provider + Ernie Shaw MD Unavailable [phone] Encounter Details Date Type Department Care Team (Late st Contact Info) Description 06/18/2020 Orders Only [facility] [address] [place] [address] Provider, MD Isis [address] [place], [place] [id number] Social History Tobacco Use Types Packs/Day Years [...] Procedure Name Priority Date/Time Associated Diagnosis Comments PROGESTERONE Routine 06/01/2020 HCG, BLOOD, QUALITATIVE Routine 06/01/2020 HCG, BLOOD, QUALITATIVE Routine 05/30/2020 documented in this encounter Results * hCG, blood, qualitative (06/01/2020) Blood specimen (specimen) [facility] Provider MD LAB BLOOD ORDERABLES Briana l Result * Progesterone (06/01/2020) Blood specimen (specimen) [facility] Provider MD LAB BLOOD ORDERABLES Braina l Result * hCG, blood, qualitative (05/30/2020) Blood specimen (specimen) [facility] Provider LAB BLOOD ORDERABLES Briana l Result documented in this encounter Visit Diagnoses Not on filedocumented in this encounter Care Teams Dry Room Attendant Relationship Specialty [place] [address] [address] [facility] [place] [address] PCP - General 07/04/19 [place] [address] [address] [facility] [place] [address] 11/16/18 Ernie Shaw MD [address] [place] [address] DR AUG[address] [facility] [address] Accounts Payables Clerk Obstetrics and Gynecology 06/10/20 documented as of this encounter
--- OUTSIDE RECORDS SUMMARY | 2024-02-24 20:09 | XMS_ITS | Encounter Summary ---
Author Organization [facility] Medical [facility] Address [address] [place] [address] Care Team Providers Care Trademark Affixer Name Role Phone Huseyin Dangelo MD Unavailable [phone] Brian Mon MD Primary Care Provider + Ernie Shaw MD Unavailable [phone] Reason for Visit * Reason Onset Date Comments Transfer of Care 06/22/2020 Encounter Details Date Type Department Care Team (Late st Contact Info) Description 06/22/2020 Telephone [facility] [address], [place] [address] Fallon Ortiz, child and adolescent therapist of Care Social History Tobacco Use Types Packs/Day [...] Miscellaneous Notes * Telephone Encounter - Fallon Ortiz RN - 06/24/2020 12:44 PM CDT Pt cancelled appt. No need to call. * Telephone Encounter - Fallon Ortiz RN - 06/22/2020 12:24 PM CDT Please call pt to explain the rationale of transferring her care to [facility]. Thanks! documented in this encounter Plan of Treatment Not on file documented as of this encounter Visit Diagnoses Not on filedocumented in this encounter Care Teams Trademark Affixer Relationship Specialty [place] [address] [address] [place] [address] PCP - General 07/04/19 [place] [address] [address] [place] [address] 11/16/18 Ernie Shaw MD [address] [place] [address] DR [address] [place] [address] Child And Adolescent Therapist Obstetrics and Gynecology 06/10/20 documented as of this encounter
--- OUTSIDE RECORDS SUMMARY | 2024-02-24 20:09 | XMS_ITS | Encounter Summary ---
Author Organization [facility] Address [address] [place] [address] Phone Care Team Providers Care Ore Roaster Name Role Phone Huseyin Dangelo MD Unavailable [phone] Brian Mon MD Primary Care Provider + Ernie Shaw MD Unavailable [phone] Encounter Details Date Type Department Care Team (Late st Contact Info) Description 06/22/2020 Telephone [facility] [address] [place] [address] Minal Brady Social History Tobacco Use [...] * Telephone Encounter - Minal Brady - 06/22/2020 11:08 AM CDT Phone call placed to patient and message left asking patient to call back to schedule a 30 min MFM appointment with MD only next week. NO US this time per Dr. Lazo. documented in this encounter Plan of Treatment Not on file documented as of this encounter Visit Diagnoses Not on filedocumented in this encounter Care Teams Ore Roaster Relationship Specialty [place] [address] [address] [address] PCP - General 07/04/19 [place] [address] [address] [place] [address] 11/16/18 Ernie Shaw MD [address] [place] [address] [address] [place] [address] Parking Lot Laborer Obstetrics and Gynecology 06/10/20 documented as of this encounter
--- OUTSIDE RECORDS SUMMARY | 2024-02-24 20:09 | XMS_ITS | Encounter Summary ---
Author Organization [facility] Address [address] [place] [address] Phone Care Team Providers Care Conference Translator Name Role Phone Huseyin Dangelo MD Unavailable [phone] [place] Mon MD Primary Care Provider + Ernie Shaw MD Unavailable [phone] Encounter Details Date Type Department Care Team (Late st Contact Info) Description 06/14/2020 4:00 PM CDT Lab [facility] Oncology [address] [place] [address] Carolina Delarosa MD [address] [place] [address] Other systemic lupus erythematosus with [...] Encounter Note - Carolina Delarosa MD - 06/15/2020 1:23 PM CDT Please let her know labs are stable I called in AZA 50 mg Please do cbc,cmp in 1 month documented in this encounter Plan of Treatment Not on file documented as of this encounter Procedures Procedure Name Priority Date/Time Associated Diagnosis Comments ANTI-DOUBLE STRANDED DNA ANTIBODIES Routine 06/14/2020 4:01 PM CDT Other systemic lupus erythematosus with other organ involvement (CMS/HCC) SJOGRENS SYNDROME-B ANTIBODY Routine 06/14/2020 4:01 PM CDT Other systemic lupus erythematosus with other organ involvement (CMS/HCC) SJOGRENS SYNDROME-A ANTIBODY Routine 06/14/2020 4:01 PM CDT Other systemic lupus erythematosus with other organ involvement (CMS/HCC) documented in this encounter Results * Sjogrens syndrome-A antibody (06/14/2020 4:01 PM CDT) Anti-PHUONG, SS-A <0.2 <=0.9 Ab Index ARPITA ROSADO Comment: Interpretive Data Negative: < 1.0 Ab Index Positive: > or = 1.0 Ab Index Current interpretive data was last revised on 2016. Testing performed by: [facility], [address], [place]., [address] Blood specimen (specimen) 06/14/2020 4:01 PM CDT 06/14/2020 6:27 PM CDT us Carolina Delarosa MD LAB BLOOD ORDERABLES Final Result ARPITA ROSADO [address] [facility] [facility] [place] [address] * Sjogrens syndrome-B antibody (06/14/2020 4:01 PM CDT) Pathologist [facility] Anti-PHUONG, SS-B <0.2 <=0.9 Ab Index ARPITA ROSADO Comment: Interpretive Data Negative: < 1.0 Ab Index Positive: > or = 1.0 Ab Index Current interpretive data was last revised on 2016. Testing performed by: [facility], [address] [place] [address]., [id number] Blood specimen (specimen) 06/14/2020 4:01 PM CDT 06/14/2020 6:27 PM CDT Carolina Delarosa MD LAB BLOOD ORDERABLES Final Result Performing Organization Address [facility] de Phone Number [facility] [address] [facility] [facility] [place] [address] * (ABNORMAL) Anti-double stranded DNA antibodies (06/14/2020 4:01 PM CDT) Pathologist [facility] dsDNA Ab 7.0(H) <=4.0 IUnits/mL ARPITA BARNES Comment: Interpretive Data Negative: < or = 4 IUnits/mL Indeterminate: 5 - 9 IUnits/mL Positive: > or = 10 IUnits/mL Current interpretive data was last revised on 2016. Testing performed by: [facility], [address] [place] [address]., [id number] Blood specimen (specimen) 06/14/2020 4:01 PM CDT 06/14/2020 6:27 PM CDT Carolina Delarosa MD LAB BLOOD ORDERABLES Final Result Performing Organization Address City/[facility] Co de Phone Number [facility] [address] [facility] [facility] [place] [address] documented in this encounter Visit Diagnoses Diagnosis Other systemic lupus erythematosus with other organ involvement (HCC) documented in this encounter Care Teams Conference Translator Relationship Specialty [place] [address] [address] [facility] [place] [address] PCP - General 07/04/19 [place] [address] [address] [facility] [place] [address] 11/16/18 Ernie Shaw MD [address] [place] [address] [address] [place] [address] Lead Technician Obstetrics and Gynecology 06/10/20 documented as of this encounter
--- OUTSIDE RECORDS SUMMARY | 2024-02-24 20:09 | XMS_ITS | Encounter Summary ---
Author Organization [facility] Address [address] [place] [address] Care Team Providers Care Bookbinder Chief Name Role Phone Huseyin Dangelo MD Unavailable [phone] [place] Mon MD Primary Care Provider + Ernie Shaw MD Unavailable [phone] Reason for Visit * Reason Onset Date Comments Vitaliying, 7 weeks 06/10/2020 Encounter Details Date Type Department Care Team (Late st Contact Info) Description 06/10/2020 Telephone [facility] [address] [facility] [address] [place] [address] Fallon Ortiz RN Cramping, 7 weeks Social History Tobacco Use Types Packs/Day Years [...] Telephone Encounter - Fallon Ortiz RN - 06/10/2020 2:58 PM CDT Pt called today stating that she left [facility] ER prior to seeing an MD, pt requested to speak to an MD and states she was disregarded. Pt has an MFM appt tomorrow at [facility]. BQHCG appropriate and US WNL. * Telephone Encounter - Fallon Ortiz RN - 06/10/2020 10:31 AM CDT Pt ended up going to [facility] ER. * Telephone Encounter - Fallon Ortiz RN - 06/10/2020 8:16 AM CDT Pt called today, early , c/o cramping, no bleeding. Pt was seen in [facility] yesterday with an US that showed FHTs. See note from [facility] from 06-09-20. Pt called the [facility] again this morning, see note, 06-10-20, 30 minutes prior to calling our office and the noted stated she was going there. I spoke to pt and pt states she is not going to the [facility], she wanted to call JT first and that norma far drive. Pt aware that JT and US is not here today. Pt made aware that she does not need another US as this would be her 5 US this . Will order a STAT BQHCG at [facility]. documented in this encounter Plan of Treatment Not on file documented as of this encounter Visit Diagnoses Diagnosis Abdominal cramping affecting - Primary documented in this encounter Care Teams Bookbinder Chief Relationship Specialty [place] [address] [facility] [address] [place] [address] PCP - General 07/04/19 [place] [address] [address] [place] [address] 11/16/18 Ernie Shaw MD [address] [place] [address] [address] [place] [address] Insurance Verify Rep Obstetrics and Gynecology 06/10/20 documented as of this encounter
--- OUTSIDE RECORDS SUMMARY | 2024-02-24 20:10 | XMS_ITS | Encounter Summary ---
Author Organization [facility] Address [address] [place] [address] Care Team Providers Care Security Patrol Officer Name Role Phone Huseyin Dangelo MD Unavailable [place] Mon MD Primary Care Provider + Reason for Visit * Reason Onset Date Comments New Patient, History of Miscarriage, Currently P regnant 06/01/2020 Encounter Details Date Type Department Care Team (Late st Contact Info) Description 06/01/2020 Telephone [facility] [address] [facility] [address], [place] [address] Fallon Ortiz RN New Patient, History of Miscarriage, Currently Social History Tobacco Use Types Packs/Day Years [...] encounter Miscellaneous Notes * Telephone Encounter - Ernie Shaw MD - 06/01/2020 5:34 PM CDT call center trainer phone call. Patient is having mild cramping x 2 weeks. She had an office sono that showed IUP but no FHR. 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 She had a six month loss when her SLE was diagnosed. She has had a prior miscarriage. Recommend vaginal progesterone 200 mg qhs. Will await sono Sunday. To ER if severe pain. Discussed with patient that she has to make it past 12 weeks to be clear of most first trimester miscarriages. Will await 4 test thrombophilia w/u with hx of losses and consider ASA 81 mg daily after 6 wks. * Telephone Encounter - Fallon Ortiz RN - 06/01/2020 2:13 PM CDT Pt called back stating that she take Xanax 0.5 mg daily. Pt states her anxiety is very bad and wenthome early because of it the past 2 days. Pt asking what she can take instead? Please advise. Thanks! * Telephone Encounter - Fallon Ortiz RN - 06/01/2020 2:06 PM CDT Pt aware of all. US made for 06-04-20 per pt request, JT ok with appt. NOB appt made for 06-18-20. Labs faxed to [facility]. Per JT: OK for pt to continue Prednisone 10 mg. Pt to speak to JT after US 06-04-20. * Telephone Encounter - Fallon Ortiz RN - 06/01/2020 1:41 PM CDT Pts labs from today are 14,281 and 13.4. Appropriate rise. Per JT: US next week and NOB in 2 weeks.Pt was prescribed Progesterone and JT suggests vaginal insertion. He also recommends a Thrombo workup: Factor V Leiden, Prothrombin Gene Mutation, Anti Cardiolipin Antibody and Lupus Anticoagulant. * Telephone Encounter - Fallon Ortiz RN - 06/01/2020 8:56 AM CDT Pt called today, new patient, . Pt had a 6 month stillborn delivery in 2017 and a 6 week loss . She does not have a living child. She was seeing an OB [place], but [facility] ER on 05-30-20 due to cramping. Her BQHCG was 6,874. Her OB in [place] ordered a STAT BQHCG and Progesterone level for today which pt did at [facility] this morning. Pt to have results faxed to our office. They also called her in Progesterone 200 mg for pt to start tonight. Pt has a history of Lupus and Santa Cruz's disease which she see an Parlor Maid for. Pt states shehas to take Prednisone 10 mg daily. Pt enc to contact her Parlor Maid to see what she needs to do. Will discuss plan once labs are resulted and when JT wants to see pt. documented in this encounter Plan of Treatment Not on file documented as of this encounter Procedures Procedure Name Priority Date/Time Associated Diagnosis Comments PROTHROMBIN GENE MUTATION Routine 06/03/2020 8:15 AM CDT History of recurrent miscarriages LUPUS ANTICOAGULANT Routine 06/03/2020 8 :15 AM CDT History of recurrent miscarriages CARDIOLIPIN ANTIBODY, IGG AND IGM Routine 06/03/2020 8:15 AM CDT History of recurrent miscarriages FACTOR V LEIDEN Routine 06/03/2020 8:15 AM CDT History of recurrent miscarriages documented in this encounter Results * Lupus anticoagulant (06/03/2020 8:15 AM CDT) Lupus anticoagulant see note [facility] [place] Comment: A Lupus Anticoagulant is not detected. Reference Range: ??Not Detected For additional information, please refer to http://education.[employer]/faq/SYV21n0 (This link is being provided for informational/ educational purposes only.) ? This interpretation is based on the following test results. Lupus anticoagulant, PTT 33 <=40 sec [facility] [place] [facility] DRVVT screen 41 <=45 sec [facility] [place] [facility] DRVVT MIX INTERPRETATION Not Indicated [facility] [place] [facility] Blood specimen (specimen) 06/03/2020 8:15 AM CDT 06/03/2020 8:18 AM CDT Narrative [facility] - 06/08/2020 9:09 AM CDT FASTING:YES FASTING: YES us Ernie Shaw MD LAB BLOOD ORDERABLES Final Result [facility] [address] [facility] [place] [address] * Cardiolipin antibody, IgG and IgM (06/03/2020 8:15 AM CDT) Anticardiolipin Ab, IgG <14 GPL [facility], Anticardiolipin Ab, IgM <12 MPL [facility], Comment: The antiphospholipid antibody syndrome (APS) is a clinical-pathologic correlation that includes a clinical event (e.g. thrombosis, loss, thrombocytopenia) and persistent positive antiphospholipid antibodies (IgM or IgG URBANO >40 MPL/GPL,IgM or IgG anti-b2GPI antibodies or a lupus anticoagulant). International consensus guidelines for APS suggest waiting at least 12 weeks before retesting to confirm antibody persistence. The Systemic Lupus International [facility] immunological classification criteria for systemic lupus erythematosus (SLE) include testing for isotype IgA, which has yet to be incorporated into APS criteria. Low level antiphospholipid antibodies may sometimes be detected in the setting of infection, drug therapy or aging. Cardiolipin Ab (IgG) Value ?Interpretation GPL ----- ? < or = 14 ??Negative ?15-20 ??Indeterminate ?21-80 ??Low to Medium Positive ?>80 ??High Positive >40 GPL is a risk factor for thrombosis and loss. Cardiolipin Ab (IgM) Value ?Interpretation ----- ? < or = 12 ??Negative ?13-20 ??Indeterminate ?21-80 ??Low to Medium Positive ?>80 ??High Positive >40 MPL is a risk factor for thrombosis and loss. Blood specimen (specimen) 06/03/2020 8:15 AM CDT 06/03/2020 8:18 AM CDT [facility] - 06/08/2020 9:09 AM CDT FASTING:YES FASTING: YES Ernie Shaw MD LAB BLOOD ORDERABLES Final Result [facility] [employer], [address] [place] [address] * Prothrombin gene mutation (06/03/2020 8:15 AM CDT) Pathologist [facility] PROTHROMBIN (FACTOR II) 28815W>A MUTATION SEE NOTE [employer], Comment:RESULT: [id number] vari ant not detected Recurrent miscarriage, interp SEE NOTE [employer], Comment: INTERPRETATION: This individual is negative (normal) for the [id number] variant in the Prothrombin/Factor II gene. Increased risk of thrombophilia can be caused by a variety of genetic and non-genetic factors not screened for by this assay. ?? Laboratory testing supervised and results monitored by Estella Sauceda, Ph.D., [facility], [facility]. Blood specimen (specimen) 06/03/2020 8:15 AM CDT 06/03/2020 8:18 AM CDT Narrative [facility] - 06/08/2020 9:09 AM CDT FASTING:YES FASTING: YES Ernie Shaw MD LAB BLOOD ORDERABLES Final Result [facility] [employer], [address] [place] [address] * Factor V Leiden (06/03/2020 8:15 AM CDT) [facility] Factor v (leiden) mutation SEE NOTE [facility], Comment:RESULT: FACTOR V LEI DEN (R506Q) VARIANT NOT DETECTED Interpretation SEE NOTE [facility], Comment: INTERPRETATION: This individual is negative (normal) for the Factor V Leiden (R506Q) variant in the Factor V gene. Increased risk of thrombophilia can be caused by a variety of genetic and non-genetic factors not screened for by this assay. ?? Laboratory testing supervised and results monitored by Mercedes Huff MD, PhD, [facility], [facility]. MUTATION ANALYSIS: The Factor V Leiden (R506Q) mutation [NM 561402.2: c.1601G>A (p.R534Q)] in the Factor V gene is one of the most common causes of inherited thrombophilia. This mutation causes resistance to degradation of activated Factor V protein by activated protein C (APC). The Factor V Leiden (R506Q) mutation is detected by amplification of the selected region of Factor V gene by polymerase chain reaction (PCR) and fluorescent probe hybridization to the targeted region, followed by melting curve analysis with a real time PCR system. Although rare, false positive or false negative results may occur. All results should be interpreted in context of clinical findings, relevant history, and other laboratory data. This test was developed and its analytical performance characteristics have been determined by [employer] [facility]. It has not been cleared or approved by FDA. This assay has been validated pursuant to the CLIA regulations and is used for clinical purposes. Health care providers, please contact your local [employer]' genetic counselor or call [phone] ([phone]) for assistance with interpretation of these results. Blood specimen (specimen) 06/03/2020 8:15 AM CDT 06/03/2020 8:18 AM CDT Narrative [facility] - 06/08/2020 9:09 AM CDT FASTING:YES FASTING: YES Ernie Shaw MD LAB BLOOD ORDERABLES Final Result [facility] [employer], [address] [place] [address] documented in this encounter Visit Diagnoses Diagnosis History of recurrent miscarriages- Primary documented in this encounter Care Teams Security Patrol Officer Relationship Specialty [place] [address] [address] [place] [address] PCP - General 07/04/19 [place] [address] [address] [facility] [place] [address] 11/16/18 documented as of this encounter
--- OUTSIDE RECORDS SUMMARY | 2024-02-24 20:10 | XMS_ITS | Encounter Summary ---
Author Organization [facility] Address [address] [place] [address] Phone Care Team Providers Care Manager Crisis Name Role Phone Huseyin Dangelo MD Unavailable [phone] [place] Mon MD Primary Care Provider + Encounter Details Date Type Department Care Team (Late st Contact Info) Description 05/04/2020 Telephone [facility] ([facility] - [facility] ENT [address] [place] [address] [place] [phone] Niurka Richardson MD [address] [place] [address] Social History Tobacco Use Types [...] encounter Miscellaneous Notes * Telephone Encounter - Niurka Richardson MD - 05/25/2020 5:22 PM CDT A user error has taken place: documented in this encounter Plan of Treatment Not on file documented as of this encounter Visit Diagnoses Not on filedocumented in this encounter Additional Health Concerns Infection Onset Date Last Indicated Resolved Time COVID: Suspected 05/14/2020 05/14/2020 05/14/2020 6:45 PM CDT COVID: Suspected 05/14/2020 05/14/2020 05/16/2020 4:21 AM CDT documented as of this encounter Care Teams Manager Crisis Relationship Specialty [place] [address] [address] [address] PCP - General 07/04/19 [place] [address] [address] [place] [address] 11/16/18 documented as of this encounter
--- OUTSIDE RECORDS SUMMARY | 2024-02-24 20:10 | XMS_ITS | Encounter Summary ---
Author Organization [facility] Healthcare Address [address] [place] [address] Care Team Providers Care Wired Sweatband Cutter Name Role Phone Huseyin Dangelo MD Unavailable [phone] Brian Mon MD Primary Care Provider + Encounter Details Date Type Department Care Team (Late st Contact Info) Description 03/31/2020 12:40 PM INDEPENDENT FREIGHT AGENT Lab [address] [address] Niurka Richardson MD [address] [facility] [address] [place], [place] [id number] Bilateral chronic serous otitis media Discharge Disposition: Discharge to home or self [...] Priority Date/Time Associated Diagnosis Comments EGFR Routine 03/31/2020 12:42 PM INDEPENDENT FREIGHT AGENT Bilateral chronic serous otitis media DIFFERENTIAL AUTO Routine 03/31/2020 12: 42 PM INDEPENDENT FREIGHT AGENT Bilateral chronic serous otitis media CBC WITH AUTO DIFFERENTIAL Routine 03/31/2020 12:42 PM INDEPENDENT FREIGHT AGENT Bilateral chronic serous otitis media VITAMIN D 25 HYDROXY Routine 03/31/2020 12:42 PM INDEPENDENT FREIGHT AGENT Bilateral chronic serous otitis media COMPREHENSIVE METABOLIC PANEL Routine 03/31/2020 12:42 PM INDEPENDENT FREIGHT AGENT Bilateral chronic serous otitis media documented in this encounter Results * eGFR (03/31/2020 12:42 PM INDEPENDENT FREIGHT AGENT) eGFR 128 mL/min/1.7 3 m2 [facility] Comment: Interpretive Data Reference Interval Normal ?>/= [...] was last reviewed 2020 Blood specimen (specimen) 03/31/2020 12:42 PM INDEPENDENT FREIGHT AGENT 03/31/2020 5:08 PM INDEPENDENT FREIGHT AGENT us Niurka Richardson MD LAB BLOOD ORDERABLES Final Re sult [place] [address] [address] Department [place] [address] * (ABNORMAL) Differential, auto (03/31/2020 12:42 PM INDEPENDENT FREIGHT AGENT) Neutrophil abs 7.7(H) 1.7 - 6.5 K/cumm [facility] Imm gran abs 0.0 0.0 - 0.1 K/cumm [facility] Lymphocyte abs 0.6(L) 0.8 - 3.3 K/cumm [facility] Monocyte abs 0.2 0.2 - 0.8 K/cumm [facility] Eosinophil abs 0.0 0.0 - 0.5 K/cumm [facility] Basophil abs 0.0 0.0 - 0.1 K/cumm [facility] Neutrophil pct 90.2 % [facility] Comment: Interpretive Data Percent cell count reference ranges are not reported, since discordance with absolute values may lead to misinterpretation of CBC data. Current Interpretive Data was last revised on 2017. Imm gran pct 0.4 % [facility] Comment: Interpretive Data Percent cell count reference ranges are not reported, since discordance with absolute values may lead to misinterpretation of CBC data. Current Interpretive Data was last revised on 2017. Lymphocyte pct 6.9 % [facility] Comment: Interpretive Data Percent cell count reference ranges are not reported, since discordance with absolute values may lead to misinterpretation of CBC data. Current Interpretive Data was last revised on 2017. Monocyte pct 1.9 % [facility] Comment: Interpretive Data Percent cell count reference ranges are not reported, since discordance with absolute values may lead to misinterpretation of CBC data. Current Interpretive Data was last revised on 2017. Eosinophil pct 0.2 % [facility] Comment: Interpretive Data Percent cell count reference ranges are not reported, since discordance with absolute values may lead to misinterpretation of CBC data. Current Interpretive Data was last revised on 2017. Basophil pct 0.4 % [facility] Comment: Interpretive Data Percent cell count reference ranges are not reported, since discordance with absolute values may lead to misinterpretation of CBC data. Current Interpretive Data was last revised on 2017. Blood specimen (specimen) 03/31/2020 12:42 PM INDEPENDENT FREIGHT AGENT 03/31/2020 4:53 PM INDEPENDENT FREIGHT AGENT Niurka Richardson MD LAB BLOOD ORDERABLES Final Re sult Performing Organization Address [facility] Co de Phone Number [place] [address] [address] Department of [employer] [place], [place] [id number] * (ABNORMAL) Vitamin D 25 hydroxy (03/31/2020 12:42 PM INDEPENDENT FREIGHT AGENT) Pathologist [facility] Vitamin D 25-OH 22(L) 30 - 80 ng/mL [facility] Blood specimen (specimen) 03/31/2020 12:42 PM INDEPENDENT FREIGHT AGENT 03/31/2020 4:53 PM INDEPENDENT FREIGHT AGENT Niurka Richardson MD LAB BLOOD ORDERABLES Final Re sult Performing Organization Address [facility] de Phone Number [place] [address] [address] [facility] [employer] [place], [place] [id number] * (ABNORMAL) Comprehensive metabolic panel (03/31/2020 12:42 PM INDEPENDENT FREIGHT AGENT) Pathologist [facility] Sodium 139 135 - 145 mmol/L [facility] Potassium, pl 4.4 3.3 - 4.9 mmol/L [facility] Chloride 105 97 - 110 mmol/L [facility] CO2 24 22 - 32 mmol/L [facility] Anion gap 10 2 - 15 mmol/L [facility] BUN 9 8 - 25 mg/dL [facility] Creatinine 0.56(L) 0.60 - 1.10 mg/dL [facility] Glucose 101 70 - 199 mg/dL [facility] Comment: Interpretive Data Fasting glucose >/= [...] Calcium 9.5 8.5 - 10.3 mg/dL [facility] Bilirubin, total 0.2 0.1 - 1.2 mg/dL [facility] Protein, pl 7.3 6.5 - 8.5 g/dL [facility] Albumin 4.2 3.5 - 5.0 g/dL [facility] Alk phos 59 40 - 130 Units/L [facility] ALT 14 7 - 45 Units/L [facility] AST 17 10 - 45 Units/L [facility] Blood specimen (specimen) 03/31/2020 12:42 PM INDEPENDENT FREIGHT AGENT 03/31/2020 4:53 PM INDEPENDENT FREIGHT AGENT us Niurka Richardson MD LAB BLOOD ORDERABLES Final Re sult [facility] [address] [address] Department [place] [address] * CBC with auto differential (03/31/2020 12:42 PM INDEPENDENT FREIGHT AGENT) WBC 8.6 3.8 - 9.9 K/cumm [facility] Hgb 13.1 11.9 - 15.5 g/dL [facility] Hct 40.6 35.6 - 45.5 % [facility] Plt 342 150 - 400 K/cumm [facility] MPV 9.9 9.1 - 12.3 fL [facility] RBC 4.26 3.90 - 5.20 M/cumm [facility] MCV 95.3 81.3 - 96.4 fL [facility] MCH 30.8 27.1 - 33.3 pg [facility] MCHC 32.3 32.3 - 35.7 g/dL [facility] RDW CV 13.6 11.1 - 14.9 % [facility] RDW SD 47.8 35.7 - 48.1 fL [facility] NRBC abs 0.00 0.00 - 0.01 K/cumm [facility] Blood specimen (specimen) 03/31/2020 12:42 PM INDEPENDENT FREIGHT AGENT 03/31/2020 4:53 PM INDEPENDENT FREIGHT AGENT Niurka Richardson MD LAB BLOOD ORDERABLES Final Re sult [facility] [address] [address] Department [place] [address] documented in this encounter Visit Diagnoses Diagnosis Bilateral chronic serous otitis media Simple or unspecified chronic serous otitis media documented in this encounter Care Teams Wired Sweatband Cutter Relationship Specialty [place] [address] [address] PCP - General 07/04/19 [place] [address] [address] 11/16/18 documented as of this encounter
--- OUTSIDE RECORDS SUMMARY | 2024-02-24 20:10 | XMS_ITS | Encounter Summary ---
Author Organization [facility] Address [address] [place] [address] Phone Care Team Providers Care Bottoming Room Supervisor Name Role Phone Huseyin Dangelo MD Unavailable [phone] Brian Mon MD Primary Care Provider + Encounter Details Date Type Department Care Team (Late st Contact Info) Description 05/04/2020 1:40 PM GAME PROGRAMMER Telemedicine [facility] Rheumatology [address] [facility] Medical Office Building [address] [place] [address] Carolina Delarosa MD [facility] [place] [address] Lupus (CMS/HCC) (Primary Dx) Social History Tobacco Use [...] Progress Notes * Carolina Delarosa MD - 05/04/2020 1:40 PM CST PATIENT NAME: Carito Madison : 1990 05/04/2020 This was a telemedicine visit with Carito Madison alone which took place via Telephone. During the visit, I was located at home and the patient was located at home in the state of [place]. The patient visit started at 1.40 pm and ended at 1.55 pm. My total encounter time on 05/04/2020 was 15 minutes which was spent in the activities documented in the note. This includes time spent prior to the visit and after the visit in direct care of the patient. This time does not include time spent in any separately reportable services.. The patient: has been informed that the visit may not be secure and acknowledged the information. The option of participating in a telephone or video visit during the [address] emergencywas explained to them. After being given an opportunity to ask questions about and discuss this type of visit, they verbally consented to proceeding with the telephone/video visit and understand thatthis service replaces an office visit. HISTORY OF PRESENT ILLNESS: ia a 29 y.o. female with SLE. The patient underwent of spontaneous 2nd trimester 2018 years ago. She was previously healthy and reported no symptoms through her . She hadfor vaginal bleeding and was found to have placental separation and lost the and 6 and half months. She 1st developed symptoms of joint pain about 2 months after this episode when she foundthat she could not get up out of the bed. She has since been diagnosed with lupus. She had 1 other early first-trimester a couple of months ago. She seems to have very clear diagnosis she has a positive BARAK 1:1280 centromere and homogeneous positive. She also has a positive double-stranded DNA, PHP MAGENTO DEVELOPER antibody and a low C4 and C3 level. She has borderline elevated inflammatory markers. Given her history of she has been worked up for APS and has borderline cardiolipin antibodies but other labs have been stable Symptomatic [...] occasional marijuana use Interim She is doing well today. She is on hydroxychloroquine She she started Benlysta in October 2019. Of note she has not had an eye examination hydroxychloroquine the last 3 years. At her last Benlysta infusion she has a nurse to stop the infusion when there was 50 mL left, she decided on this herselfbecause she feels she does better with the lower dose She was seen by Endocrinology and diagnosed with adrenal insufficiency and they have been taping her prednisone she is currently down to 5 mg ALLERGIES: Allergies Allergen Reactions ??? Methylprednisolone Anaphylaxis and Syncope Syncope ??? Amoxicillin Rash ??? Penicillins Hives ??? Aripiprazole Other (See comments) ??? Escitalopram Other (See comments) Caused seizures ??? Venlafaxine Itching CURRENT MEDICATION: Current Outpatient Medications: ??? ALPRAZolam (XANAX) 0.25 mg tablet, Take 0.25 mg by mouth 3 (three) times a day as needed , Disp: , Rfl: ??? belimumab (Benlysta) auto-injector, Inject 1 mL (200 mg total) under the skin every 7 days, Disp: 4 Syringe, Rfl: 3 ??? diclofenac sodium (VOLTAREN) 1 % gel, APPLY 2 GRAMS TOPICALLY TO ARTHRITIS JOINTS 3 TIMES A DAYAS NEEDED, Disp: , Rfl: ??? ergocalciferol (VITAMIN D) 50,000 unit capsule, TAKE 1 CAPSULE BY MOUTH ONE TIME PER WEEK, Disp: , Rfl: ??? ferrous gluconate 324 mg (38 mg of elemental iron) tablet, TAKE 1 TABLET BY MOUTH THREE TIMES ADAY, Disp: 90 tablet, Rfl: 2 ??? hydrOXYchloroQUINE (PLAQUENIL) 200 mg tablet, TAKE 1 TABLET BY MOUTH EVERY DAY AT NIGHT, Disp: 30 tablet, Rfl: 0 ??? ipratropium (ATROVENT) 0.03 % nasal spray, INSTILL 1 SPRAY IN EACH NOSTRIL TWICE DAILY, Disp: ,Rfl: ??? meclizine (ANTIVERT) 25 mg tablet, Take 1 tablet (25 mg total) by mouth 3 (three) times a day as needed for dizziness, Disp: 30 tablet, Rfl: 0 ??? multivitamin capsule, Take 1 capsule by mouth daily, Disp: , Rfl: ??? omeprazole (PriLOSEC) 20 mg capsule, Take 20 mg by mouth daily, Disp: , Rfl: ??? ondansetron (ZOFRAN) 4 mg tablet, Take 1 tablet (4 mg total) by mouth every 8 (eight) hours as needed for nausea or vomiting, Disp: 20 tablet, Rfl: 0 ??? predniSONE (DELTASONE) 1 mg tablet, Take 1 mg by mouth daily, Disp: , Rfl: ??? predniSONE (DELTASONE) 10 mg tablet, Take 10 mg by mouth daily, Disp: , Rfl: ??? predniSONE (DELTASONE) 5 mg tablet, Take 1 tablet (5 mg) by mouth daily, Disp: 90 tablet, Rfl: 1 ??? propranoloL (INDERAL) 10 mg tablet, Take 10 mg by mouth 3 (three) times a day, Disp: , Rfl: ??? triamcinolone (KENALOG) 0.1 % cream, Apply topically 2 (two) times a day, Disp: 30 g, Rfl: 0 ??? valACYclovir (VALTREX) 500 mg tablet, TAKE 1 TAB BY MOUTH 3 TIMES DAILY FOR 7 DAYS., Disp: , Rfl: ??? Ventolin HFA 90 mcg/actuation inhaler, INHALE TWO PUFFS BY MOUTH EVERY FOUR HOURS NEEDED FORWHEEZING/COUGH, Disp: , Rfl: PHYSICAL EXAM: There were no vitals taken for this visit. Physical Exam Not done LABORATORY DATA: Lab Results Component Value Date WBC 9.8 04/05/2020 HGB 12.6 04/05/2020 HCT 37.6 04/05/2020 MCV 92.2 04/05/2020 LABPLAT 302 04/05/2020 Lab Results Component Value Date AST 13 04/05/2020 ALT 10 04/05/2020 CREATININE 0.46 (L) 04/05/2020 Lab Results Component Value Date SEDRATE 12 01/26/2020 Lab Results Component Value Date CRP 9.2 01/26/2020 ASSESSMENT AND PLAN: SLE In conclusion this is a 29-year-old female with a diagnosis of lupus. She is doing much better since starting Benlysta. She has also had an improvement in a serologies. She should continue with infusions and continue with hydroxychloroquine 200 mg a day. Advised her toget an eye exam on an NAHOMY basis Previously she was chronically on steroids for 3 years and we now know that she is adrenally insufficient. She is now being managed by an director of sports medicine and is taking prednisone under the guidance and is on currently at 5 mg /d Labs to be done with next infusion I advised her not to stop the Benlysta infusion before her complete dose has been infused DISPOSITION: The patient will return follow up in 3 month s Carolina Delarosa MD PROGRAMMER documented in this encounter Plan of Treatment Not on file documented as of this encounter Visit Diagnoses Diagnosis Lupus- Primary Systemic lupus erythematosus documented in this encounter Care Teams Bottoming Room Supervisor Relationship Specialty [place] [address] [address] [place] [address] PCP - General 07/04/19 [place] [address] [address] [place] [address] 11/16/18 documented as of this encounter
--- OUTSIDE RECORDS SUMMARY | 2024-02-24 20:10 | XMS_ITS | Encounter Summary ---
Author Organization [facility] Address [address] [place] [address] Phone Care Team Providers Care Fourdrinier Machine Tender Name Role Phone Huseyin Dangelo MD Unavailable [phone] Brian Mon MD Primary Care Provider + Encounter Details Date Type Department Care Team (Late st Contact Info) Description 05/04/2020 Telephone [place] [facility] ([facility]) - [facility] ENT [address] [facility] Advanced Medicine [address]th [place] [address] [place] [address] Niurka Richardson MD [address] [place] [address] Social History Tobacco Use Types [...] Encounter - Niurka Richardson MD - 05/25/2020 5:21 PM CDT A user error has taken [...] documented as of this encounter Care Teams Fourdrinier Machine Tender Relationship Specialty [place] [address] [address] [address] PCP - General 07/04/19 [place] [address] [address] [place] [address] 11/16/18 documented as of this encounter
--- OUTSIDE RECORDS SUMMARY | 2024-02-24 20:10 | XMS_ITS | Encounter Summary ---
Author Organization [facility] Address [address] [place] [address] Phone Care Team Providers Care Bottle Washing Machine Operator Name Role Phone Huseyin Dangelo MD Unavailable [phone] Brian Mon MD Primary Care Provider + Encounter Details Date Type Department Care Team (Late st Contact Info) Description 04/20/2020 Orders Only [facility] Endocrinology Metabolism and Lipid [address] [facility] Advanced Medicine 5th [place] [address] [place] [address] Tadeo Aceves MD [address] [place] [address] Adrenal insufficiency (CMS/HCC) Social History Tobacco Use Types Packs/Day [...] Date End Date predniSONE (DELTASONE) 5 mg tabletIndications:A drenal insufficiency (HCC) Take 1 tablet (5 mg) by mouth daily 90 tablet 1 04/20/2020 documented in this encounter Plan of Treatment Not on file documented as of this encounter Visit Diagnoses Diagnosis Adrenal insufficiency (HCC) Glucocorticoid deficiency documented in this encounter Discontinued Medications Medication Sig Discontinue Reason Start Date End Da te predniSONE (DELTASONE) 5 mg tabletIndications:Adrenal insufficiency (HCC) Take 1 tablet (5 mg) by mouth daily Reorder 03/23/2020 04/20/2020 documented as of this encounter Care Teams Bottle Washing Machine Operator Relationship Specialty [place] [address] [address] [address] PCP - General 07/04/19 [place] [address] [address] [address] 11/16/18 documented as of this encounter
--- OUTSIDE RECORDS SUMMARY | 2024-02-24 20:10 | XMS_ITS | Encounter Summary ---
Author Organization [facility] Address [address] [place] [address] Phone Care Team Providers Care Loom Mechanic Name Role Phone Huseyin Dangelo MD Unavailable [phone] Brian Mon MD Primary Care Provider + Encounter Details Date Type Department Care Team (Late st Contact Info) Description 05/04/2020 Telephone [place] [facility] ([facility]) - [facility] ENT [address] [facility] Advanced Medicine 11th [place] [address] [place] [address] Niurka Richardson MD [address] [place] [address] Social History Tobacco Use Types [...] Encounter - Niurka Richardson MD - 05/25/2020 5:20 PM CDT A user error has taken [...] as of this encounter Care Teams Loom Mechanic Relationship Specialty [place] [address] [address] [address] PCP - General 07/04/19 [place] [address] [address] [place] [address] 11/16/18 documented as of this encounter
--- OUTSIDE RECORDS SUMMARY | 2024-02-24 20:10 | XMS_ITS | Encounter Summary ---
Author Organization [facility] Address [address] [place] [address] Phone Care Team Providers Care Spray Drier Operator Name Role Phone Huseyin Dangelo MD Unavailable [phone] Brian Mon MD Primary Care Provider + Encounter Details Date Type Department Care Team (Late st Contact Info) Description 05/13/2020 2:45 PM CDT Lab [facility] [address] [facility] [address] [place] [phone] Lupus (CMS/HCC) Social History Tobacco Use Types [...] Diagnosis Comments ANTI-DOUBLE STRANDED DNA ANTIBODIES Routine 05/13/2020 12:25 PM CDT Lupus (CMS/HCC) EGFR Routine 05/13/2020 12:25 PM CDT Lupus (CMS/HCC) DIFFERENTIAL AUTO Routine 05/13/2020 12: 25 PM CDT Lupus (CMS/HCC) C4 COMPLEMENT Routine 05/13/2020 12:25 PM CDT Lupus (CMS/HCC) URINALYSIS AND REFLEX TO MICROSCOPIC AND CULTURE Routine 05/13/2020 12:25 PM CDT Lupus (CMS/HCC) CBC WITH AUTO DIFFERENTIAL Routine 05/13/2020 12:25 PM CDT Lupus (CMS/HCC) PROTEIN / CREATININE RATIO, URINE, RANDOM Routine 05/13/2020 12:25 PM CDT Lupus (CMS/HCC) ERYTHROCYTE SEDIMENTATION RATE Routine 05/13/2020 12:25 PM CDT Lupus (CMS/HCC) C3 COMPLEMENT Routine 05/13/2020 12:25 PM CDT Lupus (CMS/HCC) CRP (ACUTE PHASE) Routine 05/13/2020 12: 25 PM CDT Lupus (CMS/HCC) COMPREHENSIVE METABOLIC PANEL Routine 05/13/2020 12:25 PM CDT Lupus (CMS/HCC) documented in this encounter Results * eGFR (05/13/2020 12:25 PM CDT) eGFR >90 mL/min/1.7 3 m2 ARPITA ROSADO Comment: Interpretive Data Reference Interval Normal ?>/= [...] was last reviewed 2020 Blood specimen (specimen) 05/13/2020 12:25 PM CDT 05/13/2020 3:30 PM CDT Carolina Delarosa MD LAB BLOOD ORDERABLES Final Result [facility] [address] [facility]. [place] [address] * Differential, auto (05/13/2020 12:25 PM CDT) Neutrophil abs 5.6 1.7 - 6.5 K/cumm [facility] Imm gran abs 0.0 0.0 - 0.1 K/cumm [facility] Lymphocyte abs 1.4 0.8 - 3.3 K/cumm [facility] Monocyte abs 0.6 0.2 - 0.8 K/cumm [facility] Eosinophil abs 0.1 0.0 - 0.5 K/cumm [facility] Basophil abs 0.0 0.0 - 0.1 K/cumm [facility] Neutrophil pct 72.3 % CERNER [facility] Comment: Interpretive Data Percent cell count reference ranges are not reported, since discordance with absolute values may lead to misinterpretation of CBC data. Current Interpretive Data was last revised on 2017. Imm gran pct 0.4 % CERNER W Comment: Interpretive Data Percent cell count reference ranges are not reported, since discordance with absolute values may lead to misinterpretation of CBC data. Current Interpretive Data was last revised on 2017. Lymphocyte pct 17.7 % ARPITA ROSADO Comment: Interpretive Data Percent cell count reference ranges are not reported, since discordance with absolute values may lead to misinterpretation of CBC data. Current Interpretive Data was last revised on 2017. Monocyte pct 7.4 % ARPITA MORANATUL Comment: Interpretive Data Percent cell count reference ranges are not reported, since discordance with absolute values may lead to misinterpretation of CBC data. Current Interpretive Data was last revised on 2017. Eosinophil pct 1.7 % ARPITA ROSADO Comment: Interpretive Data Percent cell count reference ranges are not reported, since discordance with absolute values may lead to misinterpretation of CBC data. Current Interpretive Data was last revised on 2017. Basophil pct 0.5 % ARPITA ROSADO Comment: Interpretive Data Percent cell count reference ranges are not reported, since discordance with absolute values may lead to misinterpretation of CBC data. Current Interpretive Data was last revised on 2017. Blood specimen (specimen) 05/13/2020 12:25 PM CDT 05/13/2020 3:30 PM CDT us Carolina Delarosa MD LAB BLOOD ORDERABLES Final Result [facility] [address] [facility]. [place] [address] * CBC with auto differential (05/13/2020 12:25 PM CDT) WBC 7.7 3.8 - 9.9 K/cumm ARPITA MORANATUL Hgb 12.7 11.9 - 15.5 g/dL ARPITA ROSADO Hct 37.6 35.6 - 45.5 % ARPITA ROSADO Plt 292 150 - 400 K/cumm [facility] MPV 10.1 9.1 - 12.3 fL [facility] RBC 4.04 3.90 - 5.20 M/cumm [facility] MCV 93.1 81.3 - 96.4 fL [facility] MCH 31.4 27.1 - 33.3 pg [facility] MCHC 33.8 32.3 - 35.7 g/dL [facility] RDW CV 13.0 11.1 - 14.9 % [facility] RDW SD 44.6 35.7 - 48.1 fL [facility] NRBC abs 0.00 0.00 - 0.01 K/cumm [facility] Blood specimen (specimen) 05/13/2020 12:25 PM CDT 05/13/2020 3:30 PM CDT us Carolina Delarosa MD LAB BLOOD ORDERABLES Final Result [facility] [address] [facility]. [place] [address] * (ABNORMAL) Comprehensive metabolic panel (05/13/2020 12:25 PM CDT) Pathologist [facility] Sodium 138 135 - 145 mmol/L ARPITA BARNES Comment:Outpatient Potassium, pl 3.5 3.3 - 4.9 mmol/L ARPITA BARNES Comment:Outpatient Chloride 103 97 - 110 mmol/L ARPITA BARNES Comment:Outpatient CO2 23 22 - 32 mmol/L ARPITA BARNES Comment:Outpatient Anion gap 12 2 - 15 mmol/L ARPITA BARNES Comment:Outpatient BUN 10 8 - 25 mg/dL ARPITA BARNES Comment:Outpatient Creatinine 0.56(L) 0.60 - 1.10 mg/dL ARPITA BARNES Comment:Outpatient Glucose 68(L) 70 - 199 mg/dL [facility] Comment: Result called by [id number] at 2020-05-13 16:10:40. Result Read Back by Outpatient Interpretive Data Fasting glucose >/= 126 mg/dl [...] 2017. Calcium 8.9 8.5 - 10.3 mg/dL CERANNAMARIA MORANCH Comment:Outpatient Bilirubin, total 0.3 0.1 - 1.2 mg/dL ARPITA MORANWCH Comment:Outpatient Protein, pl 6.5 6.5 - 8.5 g/dL [facility]ANNAMARIA [facility] Comment:Outpatient Albumin 4.1 3.5 - 5.0 g/dL ARPITA [facility] Comment:Outpatient Alk phos 53 40 - 130 Units/L [facility]ERANNAMARIA MORANW[facility] Comment:Outpatient ALT 10 7 - 45 Units/L ARPITA MORANWCH Comment:Outpatient AST 19 10 - 45 Units/L ARPITA MORANWCH Comment:Outpatient Blood specimen (specimen) 05/13/2020 12:25 PM CDT 05/13/2020 3:30 PM CDT Carolina Delarosa MD LAB BLOOD ORDERABLES Final Result Performing Organization Address City/[facility]/ZIP Co de Phone Number [facility] [address] [place] [address] * C3 complement (05/13/2020 12:25 PM CDT) Complement C3 136 90 - 180 mg/dL [facility] Comment:Testing performed by : [facility], [address] [place] [address]., [address] Blood specimen (specimen) 05/13/2020 12:25 PM CDT 05/13/2020 5:13 PM CDT Carolina Delarosa MD LAB BLOOD ORDERABLES Final Result Performing Organization Address City/[facility]/ZIP Co de Phone Number [facility] [address] [facility] [employer] [place], [place] [id number] * CRP (acute phase) (05/13/2020 12:25 PM CDT) Pathologist [facility] CRP 7.5 <=10.0 mg/L ARPITA ROSADO Comment:Outpatient Blood specimen (specimen) 05/13/2020 12:25 PM CDT 05/13/2020 3:30 PM CDT Carolina Delarosa MD LAB BLOOD ORDERABLES Final Result Performing Organization Address [facility] Co de Phone Number [facility] [address] [facility] [place] [address] * (ABNORMAL) Anti-double stranded DNA antibodies (05/13/2020 12:25 PM CDT) [facility] dsDNA Ab 7.0(H) <=4.0 IUnits/mL ARPITA ORSADO Comment: Interpretive Data Negative: < or = 4 IUnits/mL Indeterminate: 5 - 9 IUnits/mL Positive: > or = 10 IUnits/mL Current interpretive data was last revised on 2016. Testing performed by: [facility], [address] [place] [address]., [address] Blood specimen (specimen) 05/13/2020 12:25 PM CDT 05/13/2020 4:30 PM CDT Carolina Delarosa MD LAB BLOOD ORDERABLES Final Result Performing Organization Address [facility] Co de Phone Number [facility] [address] [facility] [place] [address] * Erythrocyte sedimentation rate (05/13/2020 12:25 PM CDT) [facility] Erythrocyte sedimentation rate 12 1 - 20 mm/hr ARPITA ROSADO Blood specimen (specimen) 05/13/2020 12:25 PM CDT 05/13/2020 3:30 PM CDT Carolina Delarosa MD LAB BLOOD ORDERABLES Final Result Performing Organization Address City/[facility]/ZIP Co de Phone Number ARPITA ROSADO [address] [address] [employer]. [place] [address] * (ABNORMAL) Urinalysis reflex to microscopic and culture Urine (05/13/2020 12:25 PM CDT) Color, ur Straw Yellow [facility] Clarity, ur Turbid(A) Clear [facility] Specific gravity, ur 1.016 1.010 - 1.025 [facility] pH, urine 6.0 [facility] Protein, ur ql Negative Negative [facility] Glucose, ur ql Negative Negative [facility] Ketones, ur Negative Negative [facility] Bilirubin, ur Negative Negative [facility] Blood, ur Negative Negative [facility] Urobilinogen, ur <2.0 <2.0 mg/dL [facility] Nitrite, ur Negative Negative [facility] Leukocyte esterase, ur Negative Negative [facility] UA reflex comment Reflex conditions for microscopic UA and culture not met. [facility] Urine 05/13/2020 12:2 5 PM CDT 05/13/2020 3:30 PM CDT Narrative [facility] - 05/13/2020 3:45 PM CDT ?? Urine pH is affected by diet, medications, systemic acid-base disturbances, and renal tubular function. ??pH may affect urinary stone formation. ??For example, urine pH below 6.0 may help reduce the tendency for calcium phosphate stones and pH greater than 6.0 may reduce the tendency for uric acid stone formation. Source: [facility] [employer]. Last revised 03-08-2017 us Carolina Delarosa MD LAB MICROBIOLOGY - GENERAL ORDERABLES Final Result Performing Organization Address City/[facility]/ZIP Co de Phone Number ARPITA BARNESCH [address] [address] [employer]. [place] [address] * C4 complement (05/13/2020 12:25 PM CDT) Pathologist [facility] Complement C4 19 10 - 40 mg/dL C[facility]ER [facility] Comment:Testing performed by : [facility], [address] [place] [address]., [address] Blood specimen (specimen) 05/13/2020 12:25 PM CDT 05/13/2020 5:13 PM CDT Carolina Delarosa MD LAB BLOOD ORDERABLES Final Result Performing Organization Address City/[facility] Co de Phone Number ARPITA MORANCH [address] [facility] [place] [address] * Protein / creatinine ratio, urine, random (05/13/2020 12:25 PM CDT) Protein, ur, quant 7.2 mg/dL ARPITA ROSADO Comment: Interpretive Data No reference range established. Current interpretive data was last revised 2018. Testing performed by: [facility], [address] [place] [address]., [address] Creatinine Ur 79.8 mg/dL ARPITA ROSADO Comment: Interpretive Data No reference range established. Current interpretive data was last revised 2018. Testing performed by: [facility], [address] [place] [address]., [address] Protein/creatinin e ratio 90.2 0.0 - 180.0 mg/g CR ARPITA BARNES Comment:Testing performed by : [facility], [address] [place] [address]., [address] Urine 05/13/2020 12:2 5 PM CDT 05/13/2020 5:14 PM CDT Carolina Delarosa MD LAB URINE ORDERABLES Final Result Performing Organization Address [facility] Co de Phone Number ARPITA [facility] [address] [facility] [place] [address] documented in this encounter Visit Diagnoses Diagnosis Lupus Systemic lupus erythematosus documented in this encounter Care Teams Spray Drier Operator Relationship Specialty [place] [address] [address] PCP - General 07/04/19 [place] [address] [address] [place] [address] [place] [address] 11/16/18 documented as of this encounter
--- OUTSIDE RECORDS SUMMARY | 2024-02-24 20:10 | XMS_ITS | Encounter Summary ---
Author Organization [facility] Address [address] [place] [address] Care Team Providers Care Almond Blancher Hand Name Role Phone Huseyin Dangelo MD Unavailable [phone] Brian Mon MD Primary Care Provider + Reason for Referral * Diagnostic Imaging (Routine) - Closed Specialty Diagnoses / Procedures Referred By Jud t Referred To Contact Diagnoses Threatened Procedures US Ob Transvaginal Ernie Shaw MD [address] [place] [address] [address], [place] [address] Phone: tel: fax: Idris Salguero [address] [place] [address] [place] [phone] Phone: tel: fax: Referral ID Status Reason Start Date Expiration Date Visits Re quested Visits Authorized [id number] Closed 06/02/2020 07/02/2021 1 1 Reason for Visit * Reason Comments Threatened 020.0 Encounter Details Date Type Department Care Team (Latest Contact Info) Description 06/02/2020 9:30 AM CDT Clinical Support Idris Salguero [address] [place] [phone] Threatened (Primary Dx) Social History Tobacco Use Types [...] Progress Notes * Ernie Shaw MD - 06/02/2020 9:30 AM CDT [facility] Obstetric Ultrasound Date of exam: 06/02/2020 Diagnoses and all orders for this visit: Threatened (Primary) - US Ob Transvaginal Clinical history: Patient presents for early OB sono to establish gestational age and viability. No LMP recorded (lmp unknown). Patient is . Findings: An early OB ultrasound is performed. The uterus is enlarged and measures 8.1 x 4.8 x 6.2 cm and contains an intrauterine with gestational sac, yolk sac but no definite pole.MSD is 11.2 which gives an AGA of 5 weeks 6 days. A 11 x 6 x 10 mm subchorionic bleed is seen. The right ovary measures 2.2 x 1.6 x 2.5 cm. The left ovary measures 3.0 x 2.1 x 3.6 cm and contains a 1.5 x 1.3 x 1.4 cm cyst. The ovaries appear normal. Impression: 1. 5 week 6 day AGA by this ultrasound based on mean sac diameter with threatened miscarriage. Findings discussed at visit with plans for repeat ultrasound in 10-14 days. 2. Normal appearing ovaries bilaterally. Interpreting physician: Ernie Shaw MD Obstetrics and Gynecology documented in this encounter Plan of Treatment Scheduled Orders Name Type Priority Associated Diagnoses Orde r Schedule US Ob Transvaginal Imaging Schedule Rout ine, Read Routine (OP Routine) Threatened Ordered: 06/02/2020 documented as of this encounter Visit Diagnoses Diagnosis Threatened - Primary documented in this encounter Care Teams Almond Blancher Hand Relationship Specialty [place] [address] [address] [place] [address] PCP - General 07/04/19 [place] [address] [address] [facility] [place] [address] 11/16/18 documented as of this encounter
--- OUTSIDE RECORDS SUMMARY | 2024-02-24 20:10 | XMS_ITS | Encounter Summary ---
Author Organization [facility] Address [address] [place] [address] Phone Care Team Providers Care Router Operator Pin Name Role Phone Huseyin Dangelo MD Unavailable [phone] Brian Mon MD Primary Care Provider + Ernie Shaw MD Unavailable [phone] Encounter Details Date Type Department Care Team (Late st Contact Info) Description 05/04/2020 Telephone [facility] ([facility]) - [facility] ENT [address] [facility] [facility] [address]th [place] [address] [place] [phone] Niurka Richardson MD [address] [place] [address] Social History Tobacco Use Types [...] Telephone Encounter - Niurka Richardson MD - 10/13/2020 5:27 PM CDT duplicate documented in this encounter Plan of Treatment Not on file documented as of this encounter Visit Diagnoses Not on filedocumented in this encounter Additional Health Concerns Infection Onset Date Last Indicated Resolved Time COVID: Suspected 05/14/2020 05/14/2020 05/14/2020 6:45 PM CDT COVID: Suspected 05/14/2020 05/14/2020 05/16/2020 4:21 AM CDT COVID: Suspected 08/18/2020 08/18/2020 08/18/2020 4:51 PM CDT COVID: Suspected 09/13/2020 01/13/2021 09/22/2020 9:40 AM CDT COVID: Suspected 09/24/2020 09/24/2020 09/24/2020 10:08 PM CDT documented as of this encounter Care Teams Router Operator Pin Relationship Specialty [place] [address] [address] [place] [address] PCP - General 07/04/19 [place] [address] [address] [facility] [place] [address] 11/16/18 Ernie Shaw MD [address] [place] [address] [address] [facility] [place] [address] Dipper Machine Operator Obstetrics and Gynecology 06/10/20 documented as of this encounter
--- OUTSIDE RECORDS SUMMARY | 2024-02-24 20:10 | XMS_ITS | Encounter Summary ---
Author Organization [facility] Medical Group Address [address] [place] [address] Care Team Providers Care Steam And Power Superintendent Name Role Phone Huseyin Dangelo MD Unavailable [phone] Brian Mon MD Primary Care Provider + Ernie Shaw MD Unavailable [phone] Reason for Visit * Reason Comments COVID-19 EVALUATION Symptoms started on the with a headache, sore throat, body ache, chills, vomiting. Encounter Details Date Type Department Care Team (Late st Contact Info) Description 05/14/2020 6:00 PM CDT Office Visit [facility] [address] [place] [address] Chitra Dumont, KINAG [address] [place] [address] Upper respiratory tract infection, unspecified type (Primary Dx); Non-recurrent acute suppurative otitis media of right ear without spontaneous rupture of tympanic membrane Social History Tobacco Use Types Packs/Day Years [...] Reading Time Taken Comments Blood Pressure 110/70 05/14/2020 6:19 PM CDT Pulse 87 05/14/2020 6:19 PM CDT Temperature 36.9 ??C (98.5 ??F) 05/14/2020 6:19 PM CD T Respiratory Rate 18 05/14/2020 6:19 PM CDT Oxygen Saturation 97% 05/14/2020 6:19 PM CDT Inhaled Oxygen Concentration - - Weight 80.3 kg (177 lb) 05/14/2020 6:19 PM CDT Height 160 cm (5' 3 ) 05/14/2020 6:19 PM CDT Body Mass Index 31.35 05/14/2020 6:19 PM CDT documented in this encounter Patient Instructions * Patient Instructions* Chitra Dumont NP - 05/14/2020 6:00 PM CDT Images from the original note were not included. Your rapid COVID-19 test was negative today in clinic. However since the tests are not 100% accurate it is still recommend you self isolate at home for 10 days from symptom onset, be fever free (without the use of fever reducing medications), and have symptom improvement before discontinuing isolation. The rapid strep test performed at the [facility] today was negative. The following is recommended treatment for pharyngitis (sore throat). ??? Take Tylenol or Motrin for fever/pain. ??? May use over the counter sore throat spray like chloraseptic for pain. ??? Gargle with warm salt water (1tsp salt/1 cup water) . ??? Drink warm tea with honey and lemon or broth to soothe pain. ??? Suck on ice chips, popsicles, cough drops, or throat lozenges. ??? You may return to work, daycare, or school 24 hours after you are fever free without use of Tylenol or Motrin. ??? Do not share food, drinks, or utensils. If signs/symptoms do not improve within 5 to 7 days or worsen, follow up with your PCP. If you develop difficulty breathing, drooling due to an inability to swallow, or severe neck swelling go to the ER. A picture of a healthy ear on top and an infected ear on bottom. Including outer, middle, and innerear, showing inflammation and fluid in the ear. Treatment for ear infections (acute otitis media): Antibiotics are often not needed for middle ear infections because the body???s immune system can fight off the infection on its own. However, sometimes antibiotics, such as amoxicillin, are needed to treat severe cases right away or cases that last longer than 2-3 days. For mild cases of middle ear infection, your doctor might recommend watchful waiting or delayed antibiotic prescribing. ??? Watchful waiting: Your doctor may suggest watching and waiting to see if you/your child needs antibiotics. This gives the immune system time to fight off the infection. If you/your child doesn???t feel better after 2-3 days of rest, extra fluids, and pain relievers, the doctor may write a prescription for an antibiotic. ??? Delayed prescribing: Your child???s doctor may give an antibiotic prescription but suggest thatyou wait 2-3 days to see if your child is still sick before filling it. If prescribed antibiotics: ??? Take antibiotics as prescribed until they are gone. Take antibiotic with food and a glass of water. Eat yogurt or take probiotic daily while on antibiotics. ??? Take Tylenol or Motrin as directed for fever and/or discomfort. ??? A warm (not hot) heating pad held over the ear can also help relieve the pain from the earache.You should use a thin cloth such as a dry washcloth between your skin and the heating pad. ??? Rest and drink lots of fluids. ??? Follow up with your Primary Care Physician in 1 month for ear recheck or sooner if symptoms worsen or are not improving as planned. Prevention You can help prevent ear infections by doing your best to stay healthy and keep others healthy, including: ??? Receive recommended vaccines, such as flu vaccine and pneumonia vaccine if appropriate. Pneumococcal vaccine protects against a common cause of middle ear infections, Streptococcus pneumonia. ??? Wash your hands frequently. ??? Breastfeed exclusively until your baby is 6 months old and continue to breastfeed for at least 12 months. ??? Don???t smoke and avoid exposure to secondhand smoke. ??? Dry your ears thoroughly after swimming. documented in this encounter Ordered Prescriptions Prescription Sig Dispense Quantity Refills Last Filled Start Date End Date doxycycline (VIBRAMYCIN) 100 mg capsuleIndications: Non-recurrent acute suppurative otitis media of right ear without spontaneous rupture of tympanic membrane Take 1 tablet/caps ule (100 mg total) by mouth 2 (two) times a day for 7 days 14 tablet/capsule 05/14/2020 05/21/2020 documented in this encounter Progress Notes * Chitra Dumont NP - 05/14/2020 6:00 PM CDT Images from the original note were not included. Patient ID: Carito Madison is a 30 y.o. female followed by Brian Mon MD Patient was wearing the following PPE: mask. MA was wearing the following PPE: mask, gown, gloves and face shield. Provider was wearing the following PPE: mask, gown, gloves and face shield. Chief Complaint Patient presents with ??? COVID-19 EVALUATION Symptoms started on the with a headache, sore throat, body ache, chills, vomiting. Presents to clinic with complaints of nasal congestion/drainage, sore throat, bilateral ear pain, headaches, fatigue, body aches, chills, nausea, vomiting, and diarrhea. Patient states her symptoms started 05/11/2020 and have remained constant. Denies fever, cough, shortness of breath, loss of tasteor smell. Denies N/V today. Reports taking toradol for ear pain and body aches with relief. Denies other home treatments. Denies know sick or COVID-19 positive exposures. Patient presents to clinic for assessment of Chief Complaint Patient presents with ??? COVID-19 EVALUATION Symptoms started on the with a headache, sore throat, body ache, chills, vomiting. . Patient reports SORE THROAT, NASAL CONGESTION, NASAL DRAINAGE, EAR PAIN, VOMITING, DIARRHEA, HEADACHE, BODY ACHES, FATIGUE and CHILLS Patient reports this has been going on for 4 days. Patient with sick or suspected COVID-19 contacts: No Patient has following risks for COVID-19: Patient is immunosuppressed Review of Systems Constitutional: Positive for appetite change, chills and fatigue. Negative for fever. HENT: Positive for congestion, ear pain (R>L), postnasal drip, rhinorrhea and sore throat. Negative for sinus pressure, sinus pain and trouble swallowing. Respiratory: Negative for cough and shortness of breath. Gastrointestinal: Positive for diarrhea, nausea and vomiting. Negative for abdominal pain. Musculoskeletal: Positive for myalgias. Neurological: Positive for headaches. Current Outpatient Medications Medication Sig Dispense Refill ??? ALPRAZolam (XANAX) 0.25 mg tablet Take 0.25 mg by mouth 3 (three) times a day as needed ??? belimumab (Benlysta) auto-injector Inject 1 mL (200 mg total) under the skin every 7 days 4 Syringe 3 ??? bromocriptine (PARLODEL) 2.5 mg tablet Take 2.5 mg by mouth 2 (two) times a day ??? predniSONE (DELTASONE) 1 mg tablet Take 1 mg by mouth daily ??? diclofenac sodium (VOLTAREN) 1 % gel APPLY 2 GRAMS TOPICALLY TO ARTHRITIS JOINTS 3 TIMES A DAY NEEDED ??? doxycycline (VIBRAMYCIN) 100 mg capsule Take 1 tablet/capsule (100 mg total) by mouth 2 (two) times a day for 7 days 14 tablet/capsule 0 ??? ergocalciferol (VITAMIN D) 50,000 unit capsule TAKE 1 CAPSULE BY MOUTH ONE TIME PER WEEK ??? ferrous gluconate 324 mg (38 mg of elemental iron) tablet TAKE 1 TABLET BY MOUTH THREE TIMES A DAY (Patient not taking: Reported on 05/14/2020) 90 tablet 2 ??? hydrOXYchloroQUINE (PLAQUENIL) 200 mg tablet TAKE 1 TABLET BY MOUTH EVERY DAY AT NIGHT (Patientnot taking: Reported on 05/14/2020) 30 tablet 0 ??? ipratropium (ATROVENT) 0.03 % nasal spray INSTILL 1 SPRAY IN EACH NOSTRIL TWICE DAILY ??? meclizine (ANTIVERT) 25 mg tablet Take 1 tablet (25 mg total) by mouth 3 (three) times a day asneeded for dizziness (Patient not taking: Reported on 05/14/2020) 30 tablet 0 ??? multivitamin capsule Take 1 capsule by mouth daily ??? omeprazole (PriLOSEC) 20 mg capsule Take 20 mg by mouth daily ??? ondansetron (ZOFRAN) 4 mg tablet Take 1 tablet (4 mg total) by mouth every 8 (eight) hours as needed for nausea or vomiting (Patient not taking: Reported on 05/14/2020) 20 tablet 0 ??? predniSONE (DELTASONE) 10 mg tablet Take 10 mg by mouth daily ??? predniSONE (DELTASONE) 5 mg tablet Take 1 tablet (5 mg) by mouth daily (Patient not taking: Reported on 05/14/2020) 90 tablet 1 ??? propranoloL (INDERAL) 10 mg tablet Take 10 mg by mouth 3 (three) times a day ??? triamcinolone (KENALOG) 0.1 % cream Apply [...] ??? Quit date: 12/28/2018 ??? Years since quittin.3 Smokeless Tobacco Never Used Vitals: 05/14/20 1819 BP: 110/70 BP Location: Right arm Patient Position: Sitting Pulse: 87 Resp: 18 Temp: 36.9 ??C (98.5 ??F) TempSrc: Temporal SpO2: 97% Weight: 80.3 kg (177 lb) Height: 160 cm (5' 3 ) Physical Exam Constitutional: General: She is not in acute distress. Appearance: Normal appearance. She is well-developed and well-groomed. She is not ill-appearing. HENT: Right Ear: Ear canal and external ear normal. A middle ear effusion (cloudy) is present. Tympanic membrane is erythematous and bulging. Left Ear: Ear canal and external ear normal. A middle ear effusion (cloudy) is present. Tympanic membrane is not erythematous or bulging. Mouth/Throat: Pharynx: Posterior oropharyngeal erythema present. No pharyngeal swelling, oropharyngeal exudate oruvula swelling. Cardiovascular: Rate and Rhythm: Normal rate and regular rhythm. Heart sounds: Normal heart sounds. Pulmonary: Effort: Pulmonary effort is normal. Breath sounds: Normal breath sounds and air entry. Lymphadenopathy: Head: Right side of head: No submental, submandibular, tonsillar, preauricular or posterior auricular adenopathy. Left side of head: No submental, submandibular, tonsillar, preauricular or posterior auricular adenopathy. Cervical: No cervical adenopathy. Skin: General: Skin is warm and dry. Neurological: General: No focal deficit present. Mental Status: She is alert and oriented to person, place, and time. GCS: GCS eye subscore is 4. GCS verbal subscore is 5. GCS motor subscore is 6. Psychiatric: Attention and Perception: Attention normal. Mood and Affect: Mood normal. Speech: Speech normal. Behavior: Behavior normal. Behavior is cooperative. Results for orders placed or performed in visit on 05/14/20 POCT rapid strep A Result Value Ref Range Rapid Strep A, POC Negative COVID-19 POC Result Value Ref Range COVID-19 Ag POC Presumptive Negative Presumptive Negative, Invalid Assessment/Plan Rapid COVID-19 test negative today in clinic. PCR sent per patient request. States she needs a PCR result for her work. Advised to continue home isolation for 10 days from symptom onset. Also instruction to be fever free for 24 hours and have symptom improvement before discontinuing self isolation. Rapid strep also negative today in clinic. Verbal and written instructions on home care and ER precautions given to patient. Doxycycing prescribed for AOM. Tylenol or Motrin as needed for pain. If symptoms do not improve after 2-3 days of antibiotic therapy or symptoms worsen follow up with your PCP. Diagnoses and all orders for this visit: Upper respiratory tract infection, unspecified type (Primary) - POCT rapid strep A - COVID-19 POC - COVID-19 Coronavirus RNA Nasopharyngeal; Future Non-recurrent acute suppurative otitis media of right ear without spontaneous rupture of tympanic membrane - POCT rapid strep A - COVID-19 POC - COVID-19 Coronavirus RNA Nasopharyngeal; Future - doxycycline (VIBRAMYCIN) 100 mg capsule; Take 1 tablet/capsule (100 mg total) by mouth 2 (two) times a day for 7 days Discussed COVID testing reasoning Reviewed isolation/quarantine protocols Discussed symptomatic relief of symptoms Discussed need to return to ER for further evaluation including worsening fevers, shortness of breath, of other concerning symptoms Advised to rest and stay adequately hydrated Advised to stay out of work and explanation given for when patient can return. Declines need for work note. Orders Placed This Encounter Procedures ??? COVID-19 Coronavirus RNA Nasopharyngeal Standing Status: Future Standing Expiration Date: 05/14/2021 Order Specific Question: Is the patient experiencing any symptoms consistent with COVID (eg. Fever, cough, shortness of breath)? Answer: Yes Order Specific Question: What is the reason for testing? Answer: Symptoms of COVID-19 in high-risk group, without concurrent influenza testing Order Specific Question: Date of Symptom Onset Answer: 05/11/2020 Order Specific Question: Is the patient hospitalized? Answer: No Order Specific Question: Is the patient admitted to an ICU? 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 Answer: Yes Order Specific Question: Is the patient a resident of a congregate care or living setting? Answer: No Order Specific Question: Is the patient ? Answer: No ??? POCT rapid strep A ??? COVID-19 POC Order Specific Question: Is the Patient experiencing symptoms consistent with COVID? Answer: Yes Order Specific Question: Date of Symptom Onset Answer: 05/11/2020 Order Specific Question: Is the patient hospitalized? Answer: No Order Specific Question: Is the patient admitted to an ICU? 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 Answer: Yes Order Specific Question: Is the patient a resident of a congregate care or living setting? Answer: No Order Specific Question: Is the patient ? Answer: No Chitra E. Bernat, ADMINISTRATIVE MANAGER documented in this encounter Plan of Treatment Not on file documented as of this encounter Procedures Procedure Name Priority Date/Time Associated Diagnosis Comments COVID-19 POC Routine 05/14/2020 6:44 PM CDT Upper respiratory tract infection, unspecified type Non-recurrent acute suppurative otitis media of right ear without spontaneous rupture of tympanic membrane POCT RAPID STREP Routine 05/14/2020 6:39 PM CDT Upper respiratory tract infection, unspecified type Non-recurrent acute suppurative otitis media of right ear without spontaneous rupture of tympanic membrane documented in this encounter Results * COVID-19 Coronavirus RNA Nasopharyngeal (05/15/2020 2:47 AM CDT) COVID-19 RNA Not Detected ARPITA POLLARD Comment: Testing performed as a component of ??a specimen pool. ??Negative results should be treated as presumptive and, if inconsistent with clinical signs and symptoms or necessary for patient management, pooled samples should be tested individually. Negative results do not preclude SARS-CoV-2 infection and must not be used as the sole basis for patient management decisions. Negative results must be considered in the context of a patient? s recent exposures, history, presence of clinical signs and symptoms consistent with COVID-19. Interpretive Data Synonyms for this test include: PCR and NAAT . ??Testing performed by the [facility] Infectious Disease [facility]. The Novel Coronavirus Assay (COVID-19) Real Time RT-PCR assay [...] was last revised on April 01, 2020. 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 No FRANCISCONER Comment:Testing performed by : [facility], [address] [place]., [address] Group care resident? No FRANCISCONER Comment:Testing performed by : [facility], [address] [facility], [address] Hospitalized? No CERNER Comment:Testing performed by : [facility], [address] [facility], [address] Is patient in ICU? No FRANCISCONER Comment:Testing performed by : [facility], [address] [facility], [address] Symptomatic as defined by CDC? Yes ARPITA Comment:Testing performed by : [facility], [address] [facility], [address] Nasopharyngeal 05/15/2020 2: 47 AM CDT 05/15/2020 5:22 AM CDT Narrative CERNER CH - 05/16/2020 4:20 AM CDT What is the reason for testing?->Symptoms of COVID-19 in high-risk group, without concurrent influenza testing Date of Symptom Onset->05/11/20 Chitra Dumont NP LAB MICROBIOLOGY - NERAL ORDERABLES Final Result [facility] [address] Department [place] [address] * COVID-19 POC (05/14/2020 6:44 PM CDT) COVID-19 Ag POC (BD Veritor) Presumptive Negative Presumptive Negative, Invalid [facility] [place] Nasal 05/14/2020 6:44 PM CDT Chitra Dumont ADMINISTRATIVE MANAGER POINT OF CARE TEST OR DERABLES Edited Result - Final [facility] [place] [address] * POCT rapid strep A (05/14/2020 6:39 PM CDT) Rapid Strep A, POC Negative Swab 05/14/2020 6:39 PM CDT Result [facility] Chitra Dumont ADMINISTRATIVE MANAGER POINT OF CARE TEST OR DERABLES Final Result documented in this encounter Visit Diagnoses Diagnosis Upper respiratory tract infection, unspecified type- Primary Non-recurrent acute suppurative otitis media of right ear without spontaneous rupture of tympanic membrane Upper respiratory tract infection, unspecified type Non-recurrent acute suppurative otitis media of right ear without spontaneous rupture of tympanic membrane documented in this encounter Historical Medications * This list may reflect changes made after this encounter. bromocriptine (PARLODEL) 2.5 mg tablet Take 2.5 mg by mouth 2 (two) times a day 05/12/2020 09/15/2020 added in this encounter Additional Health Concerns Infection Onset Date Last Indicated Resolved Time COVID: Suspected 05/14/2020 05/14/2020 05/14/2020 6:45 PM CDT COVID: Suspected 05/14/2020 05/14/2020 05/16/2020 4:21 AM CDT documented as of this encounter Care Teams Steam And Power Superintendent Relationship Specialty [place] [address] [address] [place] [address] PCP - General 07/04/19 [place] [address] [address] [place] [address] 11/16/18 Ernie Shaw MD [address] [place] [address] [address] [place] [address] Deputy Editor In Chief Obstetrics and Gynecology 06/10/20 documented as of this encounter
--- OUTSIDE RECORDS SUMMARY | 2024-02-24 20:10 | XMS_ITS | Encounter Summary ---
Author Organization [facility] Healthcare Address [address] [place] [address] Care Team Providers Care Spring Coiling Machine Setter Name Role Phone Huseyin Dangelo MD Unavailable [phone] Brian Mon MD Primary Care Provider + Reason for Visit * Reason Comments Abdominal Cramping Encounter Details Date Type Department Care Team (Late st Contact Info) Description 05/30/2020 8:53 PM CDT - 05/30/2020 9:49 PM CDT [facility] Emergency Department [address] [place] [address] Discharge Disposition: Left without being seen Social [...] Sign Reading Time Taken Comments Blood Pressure 122/85 05/30/2020 9:07 PM CDT Pulse 89 05/30/2020 9:07 PM CDT Temperature 36.5 ??C (97.7 ??F) 05/30/2020 9:07 PM CD T Respiratory Rate 16 05/30/2020 9:07 PM CDT Oxygen Saturation 98% 05/30/2020 9:07 PM CDT Inhaled Oxygen Concentration - - Weight 78 kg (172 lb) 05/30/2020 9:07 PM CDT Height 157.5 cm (5' 2 ) 05/30/2020 9:07 PM CDT Body Mass Index 31.46 05/30/2020 9:07 PM CDT documented in this encounter Discharge Diagnoses Diagnosis Procedure and treatment not carried out due to patient leaving prior to being seen by health care provider - PROCEDURE AND TREATMENT NOT CARRIED OUT DUE TO PATIENT LEAVING PRIOR TO BEING SEEN BY HEALTH CARE [place] documented in this encounter Medications at Time [...] 02/16/2020 1 hydrOXYchloroQUINE (PLAQUENIL) 200 mg tablet TAKE 1 TABLET BY MOUTH EVERY DAY AT NIGHT 30 tablet 04/05/2020 1 ipratropium (ATROVENT) 0.03 % nasal spray [...] 10/03/2019 1 predniSONE (DELTASONE) 1 mg tablet Take 1 mg by mouth daily 03/24/2020 1 predniSONE (DELTASONE) 10 mg tablet Take 10 mg by mouth daily 12/11/2019 1 predniSONE (DELTASONE) 5 mg tabletIndications:A drenal insufficiency (HCC) Take 1 tablet (5 mg) by mouth daily 90 tablet 1 04/20/2020 1 predniSONE (DELTASONE) 5 mg tablet Take 5 mg by mouth 11/11/2019 1 propranoloL (INDERAL) 10 mg tablet Take [...] without being seen documented in this encounter ED Notes * Sara Matute RN - 05/30/2020 9:04 PM CDT Pt has had low abd cramping since this AM. Pt was recently seen and given diflucan for a yeast infection. Pt was at an urgent care today and a urinalysis and test were performed. UA was negative, pt tested positive for today. documented in this encounter Plan of Treatment Not on file documented as of this encounter Visit Diagnoses Not on filedocumented in this encounter Care Teams Spring Coiling Machine Setter Relationship Specialty [place] [address] [address] PCP - General 07/04/19 [place] [address] [address] [address] 11/16/18 documented as of this encounter
--- OUTSIDE RECORDS SUMMARY | 2024-02-24 20:10 | XMS_ITS | Encounter Summary ---
Author Organization [facility] Medical Group Address [address] [place] [address] Care Team Providers Care Pump Servicer Helper Name Role Phone Huseyin Dangelo MD Unavailable [phone] Brian Mon MD Primary Care Provider + Reason for Visit * Reason Onset Date Comments Bleeding over weekend 06/07/2020 Encounter Details Date Type Department Care Team (Late st Contact Info) Description 06/07/2020 Telephone [email or web address] [address], [place] [address] Fallon Ortiz RN Bleeding over weekend Social History Tobacco Use Types Packs/Day Years [...] Telephone Encounter - Fallon Ortiz RN - 06/07/2020 12:11 PM CDT Pt called today stating that she had bleeding over the weekend. Pt is requesting an appt or US. Pt advised per JT that an US is not appropriate at this time as she has had several US already. Pt enc to continue current plan. Pt states she can get into her old OB today. Pt advised to do so if she wishes. documented in this encounter Plan of Treatment Not on file documented as of this encounter Visit Diagnoses Not on filedocumented in this encounter Care Teams Pump Servicer Helper Relationship Specialty [place] [address] [facility] [address] [place] [address] PCP - General 07/04/19 [place] [address] [facility] [address] [place] [address] 11/16/18 documented as of this encounter
--- OUTSIDE RECORDS SUMMARY | 2024-02-24 20:10 | XMS_ITS | Encounter Summary ---
Author Organization [facility] Address [address] [place] [address] Phone Care Team Providers Care Enterprise Manager Name Role Phone Huseyin Dangelo MD Unavailable [phone] Brian Mon MD Primary Care Provider + Reason for Visit * Reason Onset Date Comments Fatigue 04/08/2020 Encounter Details Date Type Department Care Team (Late st Contact Info) Description 04/08/2020 Telephone [facility] Endocrinology Metabolism and Lipid [address] [facility] Advanced Medicine 5th [place] [address] [place] [address] Mckayla Matos MD [address] [facility] [address] [place] [address] Fatigue Social History Tobacco Use Types Packs/Day [...] encounter Miscellaneous Notes * Telephone Encounter - Mckayla Matos MD - 04/08/2020 7:55 PM CST Pt called stating that she has been extremely fatigued for the past 2 weeks and can barely keep hereyes open. Also having lightheadedness, denies syncope. Denies n/v. BP runs 100s/70-80s. She went to ED at [facility] on 04/05 and had labs drawn which were unremarkable. She has been taking prednisone 5mg daily and sometimes takes 7mg if feeling extra tired. She really wants to be seen by Dr. Jim COREA. I advised her that I would send a message to Dr. Fernandez notifying her of pt's concerns. Maybe worth rechecking TFTs. AIR WARFARE OPERATIONS OFFICER documented in this encounter Plan of Treatment Not on file documented as of this encounter Visit Diagnoses Not on filedocumented in this encounter Additional Health Concerns Infection Onset Date Last Indicated Resolved Time Respiratory Infection (BLANCA), contact + droplet Comment:Automatically added due to negative COVID-19 result. 04/05/2020 04/05/2020 04/19/2020 3:0 7 AM ANTI AIR WARFARE OPERATIONS OFFICER documented as of this encounter Care Teams Enterprise Manager Relationship Specialty [place] [address] [address] [address] PCP - General 07/04/19 [place] [address] [address] [place] [address] 11/16/18 documented as of this encounter
--- OUTSIDE RECORDS SUMMARY | 2024-02-24 20:10 | XMS_ITS | Encounter Summary ---
Author Organization [facility] Address [address] [place] [address] Phone Care Team Providers Care Acid Bath Mixer Name Role Phone Huseyin Dangelo MD Unavailable [phone] Brian Mon MD Primary Care Provider + Encounter Details Date Type Department Care Team (Late st Contact Info) Description 04/07/2020 Orders Only [facility] ENT [address] [facility] Medical Office Building [address] [place] [address] Niurka Richardson MD [address] [place] [address] Conductive hearing loss, unspecified laterality (Primary Dx) Social History Tobacco Use Types [...] as of this encounter Visit Diagnoses Diagnosis Conductive hearing loss, unspecified laterality- Primary documented in this encounter Additional Health Concerns Infection Onset Date Last Indicated Resolved Time Respiratory Infection (BLANCA), contact + droplet Comment:Automatically added due to negative COVID-19 result. 04/05/2020 04/05/2020 04/19/2020 3:0 7 AM FUNERAL SERVICE MANAGER documented as of this encounter Care Teams Acid Bath Mixer Relationship Specialty [place] [address] [address] [address] PCP - General 07/04/19 [place] [address] [address] [place] [address] [place] [address] 11/16/18 documented as of this encounter
--- OUTSIDE RECORDS SUMMARY | 2024-02-24 20:10 | XMS_ITS | Encounter Summary ---
Author Organization [facility] Address [address] [place] [address] Phone Care Team Providers Care Legal Librarian Name Role Phone Huseyin Dangelo MD Unavailable Brian Mon MD Primary Care Provider + Encounter Details Date Type Department Care Team (Late st Contact Info) Description 06/09/2020 Telephone [facility] Maternal- Medicine [address] [facility] 7th Floor [address] [place] [address] Fariba Chin RN Social History [...] Telephone Encounter - Fariba Chin RN - 06/09/2020 12:25 PM CDT Carito called stating she is soon to be our patient and is scheduled on 06/25. 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 She has seen her building mechanic and this want her to be seen by MFM sooner. The patient states that she is very worried and is also cramping a lot. I let her know we can work on moving her appointment but if she is worried she could be evaluated at the [facility]. She stated she felt most comfortable with this plan. documented in this encounter Plan of Treatment Not on file documented as of this encounter Visit Diagnoses Not on filedocumented in this encounter Care Teams Legal Librarian Relationship Specialty [place] [address] [address] [address] PCP - General 07/04/19 [place] [address] [address] [address] 11/16/18 documented as of this encounter
--- OUTSIDE RECORDS SUMMARY | 2024-02-24 20:10 | XMS_ITS | Encounter Summary ---
Author Organization [facility] Address [address] [place] [address] Phone Care Team Providers Care Green End Worker Name Role Phone Huseyin Dangelo MD Unavailable [phone] Brian Mon MD Primary Care Provider + Encounter Details Date Type Department Care Team (Late st Contact Info) Description 05/04/[address] [facility] Rheumatology [address] [facility] Medical Office Building [address] [place] [address] Augusta Duque RMA Social History Tobacco Use Types Packs/Day [...] encounter Miscellaneous Notes * Telephone Encounter - Augusta Duque MA - 05/04/2020 2:29 PM CST Patient will call back to schedule follow up. LOADER documented in this encounter Plan of Treatment Not on file documented as of this encounter Visit Diagnoses Not on filedocumented in this encounter Care Teams Green End Worker Relationship Specialty [place] [address] [address] [address] PCP - General 07/04/19 [place] [address] [address] [address] 11/16/18 documented as of this encounter
--- OUTSIDE RECORDS SUMMARY | 2024-02-24 20:10 | XMS_ITS | Encounter Summary ---
Author Organization [facility] Address [address] [place] [address] Phone Care Team Providers Care Elevator Repair Mechanic Name Role Phone Huseyin Dangelo MD Unavailable [phone] Brian Mon MD Primary Care Provider + Encounter Details Date Type Department Care Team (Late st Contact Info) Description 05/30/2020 Documentation [facility] Rheumatology [address] [facility] Advanced Medicine 5th [place] [address] [place] [address] Tadeo Liriano MD [address] [place] [address] Social History Tobacco Use Types [...] as of this encounter Progress Notes * Tadeo Liriano MD - 05/30/2020 7:17 PM CDT Patient called to ask if she could continue her current medications since they just found out she is . Told her it was ok to continue 5 mg prednisone and hydroxychloroquine. In regards to Benlysta it is possible she will have to discontinue it but she will discuss this with Dr Delarosa who is her primary atomizer assembler. documented in this encounter Plan of Treatment Not on file documented as of this encounter Visit Diagnoses Not on filedocumented in this encounter Care Teams Elevator Repair Mechanic Relationship Specialty [place] [address] [address] [place] [address] PCP - General 07/04/19 [place] [address] [address] [facility] [place] [address] 11/16/18 documented as of this encounter
--- OUTSIDE RECORDS SUMMARY | 2024-02-24 20:10 | XMS_ITS | Encounter Summary ---
Author Organization [facility] Address [address] [place] [address] Care Team Providers Care Director Of Critical Care Name Role Phone Huseyin Dangelo MD Unavailable [phone] Brian Mon MD Primary Care Provider + Reason for Referral * Diagnostic Imaging (Routine) - Closed Specialty Diagnoses / Procedures Referred By Contac t Referred To Contact Diagnoses Bilateral chronic serous otitis media Procedures CT Orbits Sella PF Ear WO Contrast Niurka Richardson MD [address] [address] Phone: tel: fax: External Order Referral ID Status Reason Start Date Expiration Date Visits Re quested Visits Authorized [id number] Closed 04/01/2020 05/16/2020 1 1 T METAL JOURNEYMAN Reason for Visit * Diagnostic Imaging (Routine) - Closed Specialty Diagnoses / Procedures Referred By Jud freeman Referred To Contact Diagnoses Bilateral chronic serous otitis media Procedures CT Orbits Sella PF Ear WO Contrast Niurka Richardson MD [address] [address] Phone: tel: fax: External Order Referral ID Status Reason Start Date Expiration Date Visits Re quested Visits Authorized [id number] Closed 04/01/2020 05/16/2020 1 1 Encounter Details Date Type Department Care Team (Latest Contact Info) Description 04/09/2020 8:06 AM SHEET METAL JOURNEYMAN - 04/09/2020 11:59 PM SHEET METAL JOURNEYMAN Hospital Encounter [facility] Imaging and Radiology [address] [place] [address] Niurka Richardson MD [address] [place] [address] Bilateral chronic serous otitis media Discharge Disposition: [...] 7 days 4 Syringe 3 07/23/2019 1 diclofenac sodium (VOLTAREN) 1 % gel [...] mg) by mouth daily 90 tablet 1 03/23/2020 1 predniSONE (DELTASONE) 5 mg tablet Take [...] Name Priority Date/Time Associated Diagnosis Comments CT ORBITS SELLA PF EAR WO CONTRAST Schedule Routine, Read Routine (OP Routine) 04/09/2020 10:17 AM SHEET METAL JOURNEYMAN Bilateral chronic serous otitis media documented in this encounter Results * CT Orbits Sella PF Ear WO Contrast (04/09/2020 10:17 AM SHEET METAL JOURNEYMAN) Anatomical Region Laterality Modality Head and Neck N/A Computed Tomogra phy 04/09/2020 10:5 4 AM SHEET METAL JOURNEYMAN Impressions 04/09/2020 10:57 AM SHEET METAL JOURNEYMAN NO ACTIVE EVIDENCE OF OTITIS MEDIA. THERE IS THICKENING OF THE TYMPANIC MEMBRANE AND RETRACTION BILATERALLY. NO OTHER SIGNIFICANT FINDINGS Electronically signed by: Abiel Pastrana M.D. Narrative 04/09/2020 10:57 AM SHEET METAL JOURNEYMAN EXAMINATION: CT ORBITS SELLA PF EAR WO CONTRAST ORDER DATE: 04/09/2020 8:15 AM HISTORY: 29-year-old woman bilateral chronic serous otitis media. History of seizures, lupus, adrenal insufficiency FINDINGS: Noncontrast high-resolution bone algorithm CT performed through the petrous temporal bones with coronal and sagittal reformatted images. No priors. Patient has a CT of the brain from 09/28/2019. The visualized paranasal sinuses demonstrate minimal mucosal thickening in the anterior medial aspect of the left sphenoid sinus. The remaining paranasal sinuses are normally aerated. The mastoid air cells are normally aerated without mucoperiosteal disease sclerosis or bone destruction. Middle ear cavities are normally aerated without fluid or mucosal thickening. Right petrous temporal bone external auditory canal intact. Scutum intact. There is thickening and retraction of the tympanic membrane. Ossicles are intact without displacement or obstruction. Oval and round windows normal. Normal aeration of the middle ear cavity without bone destruction. Inner ear structures normal. Left petrous temporal bone, normal external auditory canal with normal scutum. Mastoid air cells normally aerated. Thickening and retraction of the tympanic membrane. Ossicles normal. Normal aeration middle ear. No destruction. Inner ear structures normal. Facial nerve canals normal bilaterally. Procedure Note Abiel Pastrana MD - 04/09/2020 EXAMINATION: CT ORBITS SELLA PF EAR WO CONTRAST ORDER DATE: 04/09/2020 8:15 AM HISTORY: 29-year-old woman bilateral chronic serous otitis media. History of seizures, lupus, adrenal insufficiency FINDINGS: Noncontrast high-resolution bone algorithm CT performed through the petrous temporal bones with coronal and sagittal reformatted images. No priors. Patient has a CT of the brain from 09/28/2019. The visualized paranasal sinuses demonstrate minimal mucosal thickening in the anterior medial aspect of the left sphenoid sinus. The remaining paranasal sinuses are normally aerated. The mastoid air cells are normally aerated without mucoperiosteal disease sclerosis or bone destruction. Middle ear cavities are normally aerated without fluid or mucosal thickening. Right petrous temporal bone external auditory canal intact. Scutum intact. There is thickening and retraction of the tympanic membrane. Ossicles are intact without displacement or obstruction. Oval and round windows normal. Normal aeration of the middle ear cavity without bone destruction. Inner ear structures normal. Left petrous temporal bone, normal external auditory canal with normal scutum. Mastoid air cells normally aerated. Thickening and retraction of the tympanic membrane. Ossicles normal. Normal aeration middle ear. No destruction. Inner ear structures normal. Facial nerve canals normal bilaterally. IMPRESSION: NO ACTIVE EVIDENCE OF OTITIS MEDIA. THERE IS THICKENING OF THE TYMPANIC MEMBRANE AND RETRACTION BILATERALLY. NO OTHER SIGNIFICANT FINDINGS Electronically signed by: Abiel Pastrana M.D. Niurka Richardson MD IMG CT PROCEDURES Final Resul t documented in this encounter Visit Diagnoses Diagnosis Bilateral chronic serous otitis media Simple or unspecified chronic serous otitis media documented in this encounter Additional Health Concerns Infection Onset Date Last Indicated Resolved Time Respiratory Infection (BLANCA), contact + droplet Comment:Automatically added due to negative COVID-19 result. 04/05/2020 04/05/2020 04/19/2020 3:0 7 AM SHEET METAL JOURNEYMAN documented as of this encounter Care Teams Director Of Critical Care Relationship Specialty [place] [address] [address] [place] [address] PCP - General 07/04/19 [place] [address] [address] [place] [address] 11/16/18 documented as of this encounter
--- OUTSIDE RECORDS SUMMARY | 2024-02-24 20:10 | XMS_ITS | Encounter Summary ---
Author Organization [facility] Address [address] [facility] [address] [place] [address] Care Team Providers Care Guest Relation Officer Name Role Phone Huseyin Dangelo MD Unavailable [phone] Brian Mon MD Primary Care Provider + Reason for Visit * Reason Onset Date Comments Spotting 06/02/2020 Encounter Details Date Type Department Care Team (Late st Contact Info) Description 06/02/2020 Telephone [facility] [address] [facility] [address], [place] [address] Fallon Ortiz RN Spotting Social History Tobacco Use Types Packs/Day Years [...] Miscellaneous Notes * Result Encounter Note - Ernie Shaw MD - 06/04/2020 9:20 PM CDT Please call patient with results. Looks good. * Telephone Encounter - Fallon Ortiz RN - 06/04/2020 2:52 PM CDT JT said for pt to wait to take ASA, but her STL MD, who she saw today, her old OB, told her to start it. Pt wishes to start it now. * Telephone Encounter - Fallon Ortiz RN - 06/04/2020 10:28 AM CDT Pt aware that her BQHCG had an appropriate rise to 23,227. Pt has an appt with MFM on 06-25-20. * Telephone Encounter - Fallon Ortiz RN - 06/03/2020 9:38 AM CDT Spoke to JT. Will repeat US in 2 weeks. Offered 06-16, but pt has to work. Pt scheduled for NOB appton 06-18-20, US to be done before NOB appt. Also, JT wants to refer to MFM. Will fax referral. * Telephone Encounter - Fallon Ortiz RN - 06/02/2020 10:01 AM CDT Spoke with pt after US. Pt very worried. Pt showed picture of IUFD that she passed in the toilet. Baby looked to be 16-17 weeks. She is very traumatized. See US report, small bleed. Pt to do thrombo work up tomorrow with another BQHCG as well. Pt will be 6 weeks tomorrow, do you want to start her on ASA? When should she have another US? NOB appt 06-18-20. Please advise. Thanks! * Telephone Encounter - Fallon Ortiz RN - 06/02/2020 8:54 AM CDT Pt called in today stating that she call Dr Shaw last night diamond polisher due to cramping. Pt states she started spotting today. Pt is very worried due to her history of miscarriage. Pt feels that she has to have a BM. US ordered for this morning. documented in this encounter Plan of Treatment Not on file documented as of this encounter Procedures Procedure Name Priority Date/Time Associated Diagnosis Comments HCG, BLOOD, QUANTITATIVE Routine 06/03/2020 8:23 AM CDT Threatened documented in this encounter Results * (ABNORMAL) hCG, blood, quantitative (06/03/2020 8:23 AM CDT) HCG, quant 23,227(H) mIU/mL [facility] Comment: Reference Range Non or premenopausal ?<5 Postmenopausal ? <10 Values from different assay methods may vary. The use of this assay to monitor or to diagnose patients with cancer or any condition unrelated to has not been cleared or approved by the FDA or the cartographic drafter of the assay. Blood specimen (specimen) 06/03/2020 8:23 AM CDT 06/03/2020 8:23 AM CDT Narrative [facility] - 06/04/2020 1:04 AM CDT FASTING:YES FASTING: YES Ernie Shaw MD LAB BLOOD ORDERABLES Final Result [facility] [address] [id number] documented in this encounter Visit Diagnoses Diagnosis Threatened - Primary documented in this encounter Care Teams Guest Relation Officer Relationship Specialty [place] [address] [address] [place] [address] [place] [address] PCP - General 07/04/19 [place] [address] [address] [facility] [address] 11/16/18 documented as of this encounter
--- OUTSIDE RECORDS SUMMARY | 2024-02-24 20:10 | XMS_ITS | Encounter Summary ---
Author Organization [facility] Address [address] [place] [address] Phone Care Team Providers Care Communicable Disease Specialist Name Role Phone Huseyin Dangelo MD Unavailable [phone] Brian Mon MD Primary Care Provider + Reason for Visit * Episode Based Medications (Routine) - Closed Specialty Diagnoses / Procedures Referred By Contac t Referred To Contact Diagnoses Lupus Procedures UT BELIMUMAB INJECTION Carolina Delarosa MD [address] [place] [address] Phone: tel: fax: [facility] Infusion Therapy [address] [place] [address] [address] [place] [address] Phone: tel: Referral ID Status Reason Start Date Expiration Date Visits Re quested Visits Authorized [id number] Closed 09/18/2019 09/16/2020 15 15 Encounter Details Date Type Department Care Team (Late st Contact Info) Description 05/13/2020 10:30 AM CDT Infusion [facility] Infusion Therapy [address] [place] [address] [address] [place] [address] Lupus (CMS/HCC) (Primary Dx) Social History Tobacco [...] Sign Reading Time Taken Comments Blood Pressure 107/56 05/13/2020 11:32 AM CDT Pulse 74 05/13/2020 11:32 AM CDT Temperature 36.8 ??C (98.2 ??F) 05/13/2020 10:00 AM C DT Respiratory Rate - - Oxygen Saturation - - Inhaled Oxygen Concentration - - Weight - - Height - - Body Mass Index - - documented in this encounter Progress Notes * Maryam Boles RN - 05/13/2020 10:30 AM CDT Patient here today for benlysta infusion. Patient denies any active infections. PIV placed, labs obtained and dose infused. With 22ml left patient states she wants to stop and have IV removed. She states she feels better when she stops a couple minutes early. Encouraged her to discuss this with Emmett and she states she has. PIV removed and patient discharged. documented in this encounter Plan of Treatment Not on file documented as of this encounter Visit Diagnoses Diagnosis Lupus- Primary Systemic lupus erythematosus documented in this encounter Administered Medications Inactive Administered Medications - up to 3 most recent administrations Medication Order MAR Action Action Date Dose Rate Site acetaminophen (TYLENOL) tablet 650 mg 650 mg, oral, Once, On Rachel 05/13/20 at 1030, For 1 dose, Give 30 minutes prior to infusion for infusion reaction prophylaxis.Indications:Lupus Given 05/13/2020 10:00 AM CDT 650 mg beliMUMAB (BENLYSTA) 720 mg in sodium chloride 0.9% 250 mL IVPB 720 mg, intravenous, at 250 mL/hr, Administer over 60 Minutes, Once, On Rachel 05/13/20 at 1100, For 1 dose, Maintenance Dose Please use non-filter tubing. Protect from light, Indications: Systemic Lupus ErythematosusIndications:Syste marie Lupus Erythematosus New Bag 05/13/2020 10:35 AM CDT 720 mg 250 mL/hr diphenhydrAMINE (BENADRYL) tab/cap 25 mg 25 mg, oral, Once, On Rachel 05/13/20 at 1030, For 1 dose, Please order either PO or IV. DO NOT give both IV and PO. Please give 30 minutes prior to infusion for infusion reaction prophylaxis.Indications:Lupus Given 05/13/2020 10:00 AM CDT 25 mg ondansetron (ZOFRAN) injection 4 mg 4 mg, intravenous, Administer over 2 Minutes, Once, On Rachel 05/13/20 at 1030, For 1 dose, Give 30 minutes prior to infusion for infusion reaction prophylaxis.Indications:Lupus Given 05/13/2020 10:10 AM CDT 4 mg sodium chloride 0.9% flush 10 mL 10 mL, intravenous, As needed, line care, Starting on Rachel 05/13/20 at 0955, Flush pre and post IV catheter use.Indications:Lupus Given 05/13/2020 10:10 AM CDT 10 mL documented in this encounter Orders Nursing Count Last Ordered Date First Orde red Date ONCBCN NURSING COMMUNICATION [id number] 1 0 05/13/2020 documented in this encounter Care Teams Communicable Disease Specialist Relationship Specialty [place] [address] [address] [facility] [address] [place] [address] PCP - General 07/04/19 [place] [address] [address] [facility] [address] [place] [address] 11/16/18 documented as of this encounter
--- OUTSIDE RECORDS SUMMARY | 2024-02-24 20:10 | XMS_ITS | Encounter Summary ---
Author Organization [facility] Address [address] [place] [address] Phone Care Team Providers Care Packing Room Worker Name Role Phone Huseyin Dangelo MD Unavailable [phone] Brian Mon MD Primary Care Provider + Encounter Details Date Type Department Care Team (Late st Contact Info) Description 05/05/2020 Documentation [facility] Rheumatology [address] [facility] Advanced Medicine 5th [place] [address] [place] [address] Tadeo Liriano MD [address] [place] [address] Social History Tobacco Use Types [...] Progress Notes * Tadeo Liriano MD - 05/05/2020 5:35 PM CST Patient called concerned that she is going to get lip fillers and wanted to make sure she could do that since she is on Benlysta and prednisone. She saw her primary switch crew supervisor yesterday and forgot to mention this. I told her that to my knowledge there is no contraindication. She was also askingif she should get the COVID vaccine that is scheduled for on 05/07. It seems that there have been some reports of mild allergic reactions in patients with dermal fillers to the Moderna vaccine. She doesn't know which one she will get but will let us know. IER MANAGER documented in this encounter Plan of Treatment Not on file documented as of this encounter Visit Diagnoses Not on filedocumented in this encounter Care Teams Packing Room Worker Relationship Specialty [place] [address] [address] [address] PCP - General 07/04/19 [place] [address] [address] [address] 11/16/18 documented as of this encounter
--- OUTSIDE RECORDS SUMMARY | 2024-02-24 20:10 | XMS_ITS | Encounter Summary ---
Author Organization [facility] Healthcare Address [address] [place] [address] Care Team Providers Care Drag Down Name Role Phone Huseyin Dangelo MD Unavailable [phone] Brian Mon MD Primary Care Provider + Encounter Details Date Type Department Care Team (Late st Contact Info) Description 05/15/2020 2:50 AM CDT Lab [address] [address] Upper respiratory tract infection, unspecified type; Non-recurrent acute suppurative otitis media of right [...] Miscellaneous Notes * Result Encounter Note - Breanna Bruno MA - 05/16/2020 11:27 AM CDT Patient informed of results. * Result Encounter Note - Treva Kate NP - 05/16/2020 8:30 AM CDT Please notify patient of negative covid-19 test. Patient should continue to self isolate until at least 7 days have passed since symptom onset and they have been fever free without the use of fever reducing medications for at least 24 hours documented in this encounter Plan of Treatment Not on file documented as of this encounter Procedures Procedure Name Priority Date/Time Associated Diagnosis Comments COVID-19 CORONAVIRUS RNA Routine 05/15/2020 2:47 AM CDT Upper respiratory tract infection, unspecified type [...] and NAAT . ??Testing performed by the [facility] Molecular Infectious Disease Laboratory. The 2019-Novel Coronavirus Assay (COVID-19) Real Time RT-PCR assay [...] on April 01, 2020. Testing performed by: [facility], [address] [place]., [address] Employeed in healthcare? Yes ARPITA Comment:Testing performed by : [facility], [address] [facility], [address] status? No ARPITA Comment:Testing performed by : [facility], [address] [facility], [address] Group care resident? No ARPITA Comment:Testing performed by : [facility], [address] [facility], [address] Hospitalized? No ARPITA Comment:Testing performed by : [facility], [address] [facility], [address] Is patient in ICU? No ARPITA Comment:Testing performed by : [facility], [address] [facility], [address] Symptomatic as defined by CDC? Yes ARPITA Comment:Testing performed by : [facility], [address] [facility], [address] Nasopharyngeal 05/15/2020 2: 47 AM CDT 05/15/2020 5:22 AM CDT Narrative ARPITA - 05/16/2020 4:20 AM CDT What is the reason for testing?->Symptoms of COVID-19 in high-risk group, without concurrent influenza testing Date of Symptom Onset->05/11/20 Chitra Dumont NP LAB MICROBIOLOGY - [facility] ORDERABLES Final Result [facility] [address] Department [place] [address] documented in this encounter Visit Diagnoses Diagnosis Upper respiratory tract infection, unspecified type Non-recurrent acute suppurative otitis media of right ear without spontaneous rupture of tympanic membrane documented in this encounter Additional Health Concerns Infection Onset Date Last Indicated Resolved Time COVID: Suspected 05/14/2020 05/14/2020 05/16/2020 4:21 AM CDT documented as of this encounter Care Teams Drag Down Relationship Specialty [place] [address] [address] [facility] [address] [place] [address] PCP - General 07/04/19 [place] [address] [address] [place] [address] [place] [address] 11/16/18 documented as of this encounter
--- OUTSIDE RECORDS SUMMARY | 2024-02-24 20:10 | XMS_ITS | Encounter Summary ---
Author Organization [facility] Address [address] [place] [address] Phone Care Team Providers Care E Learning Manager Name Role Phone Huseyin Dangelo MD Unavailable [phone] Brian Mon MD Primary Care Provider + Encounter Details Date Type Department Care Team (Late st Contact Info) Description 05/31/2020 Orders Only [facility] Endocrinology Metabolism and Lipid [address] [facility] Advanced Medicine 5th [place] [address] [place] [address] Ingrid Cotton MD [address] [facility] [address] [place] [address] Adrenal insufficiency (CMS/HCC) (Primary Dx) [...] Last Filled Start Date End Date hydrocortisone (CORTEF) 5 mg tabletIndications:A drenal Cortical Insufficiency Take 2 tabs (10 mg) in morning and 1 tab (5 mg) in afternoon 270 tablet 3 05/31/2020 documented in this encounter Progress Notes * Ingrid Cotton MD - 05/31/2020 5:55 PM CDT Received [employer] mobile message through on-call endocrine phone. Patient reports she is 5.5 weeks . She sent a message to Dr. Fernandez for recommendations, but called in due to symptoms of fatigue,also notes some nausea, diarrhea over the past day. She reports history of adrenal insufficiency onprednisone 5 mg daily at baseline. She self increased her prednisone to 5mg plus an additional 10 mg once today since she was feeling unwell. She states she is still tolerating fluids and PO intake, drinking a good amount of water, enough to stay hydrated. We discussed that hydrocortisone is the preferred steroid in since prednisone crosses theplacenta. I have sent a prescription for hydrocortisone 10mg QAM/5mg QPM to her pharmacy. I let herknow she can take double this dose for a couple days while feeling ill, similar to what she normally does with prednisone. She also asked about the need for Vit D and Vit B12 replacement. I let her know I would notify Dr. Fernandez about this. She is following with an ELECTRICIAN WIRING, states she will be referred to high school special education teacher. She would also like to know if Dr. Fernandez has any recommendations for a specific high school special education teacher provider. Ingrid Cotton MD Endocrinology Fellow Cosigned by Francois Fernandez MD at 06/02/2020 5:08 PM CDT documented in this encounter Plan of Treatment Not on file documented as of this encounter Visit Diagnoses Diagnosis Adrenal insufficiency (HCC)- Primary Glucocorticoid deficiency documented in this encounter Discontinued Medications Medication Sig Discontinue Reason Start Date End Da te predniSONE (DELTASONE) 5 mg tabletIndications:Adrenal insufficiency (HCC) Take 1 tablet (5 mg) by mouth daily Alternate therapy 04/20/2020 05/31/2020 predniSONE (DELTASONE) 1 mg tablet Take 1 mg by mouth daily Alternate therapy 03/24/2020 05/31/2020 predniSONE (DELTASONE) 10 mg tablet Take 10 mg by mouth daily Alternate therapy 12/11/2019 05/31/2020 documented as of this encounter Care Teams E Learning Manager Relationship Specialty [place] [address] [address] [address] PCP - General 07/04/19 [place] [address] [address] [place] [address] 11/16/18 documented as of this encounter
--- OUTSIDE RECORDS SUMMARY | 2024-02-24 20:10 | XMS_ITS | Encounter Summary ---
Author Organization [facility] Address [address] [place] [address] Phone Care Team Providers Care Director Financial Planning Name Role Phone Huseyin Dangelo MD Unavailable [phone] Brian Mon MD Primary Care Provider + Reason for Visit * Episode Based Medications (Routine) - Closed Specialty Diagnoses / Procedures Referred By Contac t Referred To Contact Diagnoses Lupus Procedures [place] BELIMUMAB INJECTION Carolina Delarosa MD [address] [place] [address] Phone: tel: fax: [facility] [address] [place] [address] [address] [place] [address] Phone: tel: Referral ID Status Reason Start Date Expiration Date Visits Re quested Visits Authorized [id number] Closed 09/18/2019 09/16/2020 15 15 Encounter Details Date Type Department Care Team (Late st Contact Info) Description 04/16/2020 10:30 AM UNIT TRUST MANAGER Infusion [facility] [address] [place] [address] [address] [place] [address] Lupus (CMS/HCC) (Primary Dx) Social [...] Reading Time Taken Comments Blood Pressure 126/79 04/16/2020 11:26 AM UNIT TRUST MANAGER Pulse 73 04/16/2020 11:26 AM UNIT TRUST MANAGER Temperature 37.2 ??C (99 ??F) 04/16/2020 11:26 AM UNIT TRUST MANAGER Respiratory Rate - - Oxygen Saturation - - Inhaled Oxygen Concentration - - Weight - - Height - - Body Mass Index - - documented in this encounter Progress Notes * Harriett Miles RN - 04/16/2020 10:30 AM CST Pt here today for Benlysta infusion. Pt states that she feels well today and has not had any recentfevers or infections. PIV started and pt tolerated well. Will continue to monitor. Pt infusion stopped at 1129 per pt request. States that she did not need the rest of the infusion. States that when she has the full infusion she does not feel well for several days after infusion. Pt states that shefeels well upon discharge. Instructed pt to contact Dr. Delarosa about the way she feels with the infusion. Pt expresses understanding. Pt has no questions or concerns at this time. Pt infusion stopped with approximately 50 ml left with the infusion. TRUST MANAGER documented in this encounter Plan of Treatment Not on file documented as of this encounter Visit Diagnoses Diagnosis Lupus- Primary Systemic lupus erythematosus documented in this encounter Administered Medications Inactive Administered Medications - up to 3 most recent administrations Medication Order MAR Action Action Date Dose Rate Site acetaminophen (TYLENOL) tablet 650 mg 650 mg, oral, Once, On Sun04/16/20 at 1030, For 1 dose, Give 30 minutes prior to infusion for infusion reaction prophylaxis.Indications:Lupus Given 04/16/2020 10:00 AM UNIT TRUST MANAGER 650 mg beliMUMAB (BENLYSTA) 720 mg in sodium chloride 0.9% 250 mL IVPB 720 mg, intravenous, at 250 mL/hr, Administer over 60 Minutes, Once, On Sun04/16/20 at 1100, For 1 dose, Maintenance Dose Please use non-filter tubing. Protect from light, Indications: Systemic Lupus ErythematosusIndications:Syste marie Lupus Erythematosus New Bag 04/16/2020 10:34 AM UNIT TRUST MANAGER 720 mg 250 mL/hr diphenhydrAMINE (BENADRYL) tab/cap 25 mg 25 mg, oral, Once, On Sun04/16/20 at 1030, For 1 dose, Please order either PO or IV. DO NOT give both IV and PO. Please give 30 minutes prior to infusion for infusion reaction prophylaxis.Indications:Lupus Given 04/16/2020 10:00 AM UNIT TRUST MANAGER 25 mg ondansetron (ZOFRAN) injection 4 mg 4 mg, intravenous, Administer over 2 Minutes, Once, On Sun04/16/20 at 1030, For 1 dose, Give 30 minutes prior to infusion for infusion reaction prophylaxis.Indications:Lupus Given 04/16/2020 10:15 AM UNIT TRUST MANAGER 4 mg sodium chloride 0.9% flush 10 mL 10 mL, intravenous, As needed, line care, Starting on Sun04/16/20 at 0953, Flush pre and post IV catheter use.Indications:Lupus Given 04/16/2020 10:15 AM UNIT TRUST MANAGER 10 mL documented in this encounter Orders Nursing Count Last Ordered Date First Orde red Date DAILY WEIGHTS 1 04/16/2020 ONCBCN NURSING COMMUNICATION [id number] 2 0 04/16/2020 PATIENT EDUCATION (SPECIFY) 1 04/16/2020 VITAL SIGNS PRE-INFUSION 1 04/16/2020 documented in this encounter Additional Health Concerns Infection Onset Date Last Indicated Resolved Time Respiratory Infection (BLANCA), contact + droplet Comment:Automatically added due to negative COVID-19 result. 04/05/2020 04/05/2020 04/19/2020 3:0 7 AM UNIT TRUST MANAGER documented as of this encounter Care Teams Director Financial Planning Relationship Specialty [place] [id number] [address] PCP - General 07/04/19 [place] [address] [address] 11/16/18 documented as of this encounter
--- OUTSIDE RECORDS SUMMARY | 2024-02-24 20:10 | XMS_ITS | Encounter Summary ---
Author Organization [facility] Address [address] [place] [address] Phone Care Team Providers Care Cable Armorer Operator Name Role Phone Huseyin Dangelo MD Unavailable [phone] Brian Mon MD Primary Care Provider + Reason for Visit * Reason Onset Date Comments Follow-up 06/01/2020 Encounter Details Date Type Department Care Team (Late st Contact Info) Description 06/01/2020 Telephone [facility] Rheumatology [address] [facility] [address] [place] [address] Nallely Griffiths CMA Follow-up Social History Tobacco Use Types Packs/Day [...] Telephone Encounter - Nallely Griffiths CMA - 06/01/2020 4:34 PM CDT Pt called with questions after specking with her OB/ TRACK SUPERINTENDENT today. Returned pt call today and lmor of Dr Delarosa suggest discussing in office at her 06/14 visit. Mention to bring all her questions and concerns to her visit to be discuss directly with Dr Delarosa. documented in this encounter Plan of Treatment Not on file documented as of this encounter Visit Diagnoses Not on filedocumented in this encounter Care Teams Cable Armorer Operator Relationship Specialty [place] [address] [address] [facility] [address] [place] [address] PCP - General 07/04/19 [place] [address] [address] [place] [address] 11/16/18 documented as of this encounter
--- OUTSIDE RECORDS SUMMARY | 2024-02-24 20:10 | XMS_ITS | Encounter Summary ---
Author Organization [facility] Healthcare Address [address] [place] [address] Care Team Providers Care Formstone Fitter Name Role Phone Huseyin Dangelo MD Unavailable [phone] Brian Mon MD Primary Care Provider + Reason for Visit * Reason Comments COVID-19 EVALUATION Encounter Details Date Type Department Care Team (Late st Contact Info) Description 04/05/2020 2:56 PM CONVEYOR MAN - 04/05/2020 4:20 PM CONVEYOR MAN [facility] Department [address] [place] [address] Viral illness (Primary Dx) Discharge Disposition: Discharge to home [...] Sign Reading Time Taken Comments Blood Pressure 146/97 04/05/2020 2:51 PM CONVEYOR MAN Pulse 88 04/05/2020 2:51 PM CONVEYOR MAN Temperature 36.3 ??C (97.3 ??F) 04/05/2020 2:51 PM CS T Respiratory Rate 18 04/05/2020 2:51 PM CONVEYOR MAN Oxygen Saturation 100% 04/05/2020 2:51 PM CONVEYOR MAN Inhaled Oxygen Concentration - - Weight 78.5 kg (173 lb) 04/05/2020 2:51 PM CONVEYOR MAN Height 160 cm (5' 3 ) 04/05/2020 2:51 PM CONVEYOR MAN Body Mass Index 30.65 04/05/2020 2:51 PM CONVEYOR MAN documented in this encounter Discharge Diagnoses Diagnosis Viral infection, unspecified - VIRAL INFECTION, UNSPECIFIED Contact with and (suspected) exposure to covid-19 - CONTACT WITH AND (SUSPECTED) EXPOSURE TO COVID-19 Unspecified asthma, uncomplicated - UNSPECIFIED ASTHMA, UNCOMPLICATED Fibromyalgia - FIBROMYALGIA Unspecified myalgia and myositis Chronic kidney disease, unspecified - CHRONIC KIDNEY DISEASE, UNSPECIFIED Family history of ischemic heart disease [...] through Care Everywhere. * Viral Syndrome (Adult) ([place]) documented in this encounter Medications at Time [...] documented in this encounter ED Notes * Ninoska Pineda, ATTORNEY LAW CLERK - 04/05/2020 3:19 PM CST HPI Chief Complaint Patient presents with ??? COVID-19 EVALUATION 29-year-old female with history of lupus, presents to ED with complaints of generalized fatigue, cough, body aches, and headache x4 days. Patient states she was tested for COVID -19 on Sunday with negative results. Patient denies any fevers, chills, vomiting, diarrhea, or chest pain. Patient does report taking prednisone chronically and states her dose was decreased from 10 mg to 5 mg approximately 2 weeks ago. Patient History: Patient Active Problem List Diagnosis Date Noted ??? Bilateral chronic serous otitis media 03/31/2020 ??? Adrenal insufficiency (CMS/HCC) 03/04/2020 ??? Microcytic anemia 12/24/2019 ??? Joint pain 12/24/2019 ??? 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 Epilepsy undetermined as [...] 1st ??? DILATION AND CURETTAGE OF UTERUS ??? [...] since quittin.2 ??? Smokeless tobacco: Never Used Substance Use Topics ??? Alcohol use: Yes Comment: occasionally ??? Drug use: Yes Types: Marijuana Comment: smoked last night Social History Social History Narrative ??? Not on file Review of Systems Review of Systems Constitutional: Positive for fatigue. HENT: Negative. Respiratory: Positive for cough. Cardiovascular: Negative. Gastrointestinal: Negative. Genitourinary: Negative. Musculoskeletal: Positive for myalgias. Skin: Negative. Neurological: Positive for headaches. All other systems reviewed and are negative. Physical Exam ED Triage Vitals [04/05/20 1451] Temp Pulse Resp BP SpO2 36.3 ??C (97.3 ??F) 88 18 146/97 100 % Temp src Heart Rate Source Patient Position BP Location FiO2 (%) Temporal -- -- -- -- Physical Exam Vitals signs and nursing note reviewed. Constitutional: General: She is not in acute distress. Appearance: Normal appearance. She is not ill-appearing, toxic-appearing or diaphoretic. HENT: Head: Normocephalic and atraumatic. Right Ear: External ear normal. Left Ear: External ear normal. Eyes: Extraocular Movements: Extraocular movements intact. Conjunctiva/sclera: Conjunctivae normal. Neck: Musculoskeletal: Normal range of motion. Cardiovascular: Rate and Rhythm: Normal rate. Pulses: Normal pulses. Pulmonary: Effort: Pulmonary effort is normal. No respiratory distress. Breath sounds: Normal breath sounds. Abdominal: General: There is no distension. Palpations: Abdomen is soft. Tenderness: There is no abdominal tenderness. There is no guarding. Musculoskeletal: Normal range of motion. Skin: General: [...] Decision Making Differential Diagnosis or Management Options: Viral illness UTI Pneumonia Critical care performed: No ED Course as of Apr 05 1617 Time: 04/05 1552 Value: [place] Screen: Negative Comment: (Reviewed) By: Ninoska Pineda NP Time: 04/05 1553 Value: HCG, ur, POC: Negative Comment: (Reviewed) By: Ninoska Pineda NP Time: 04/05 1553 Value: Strep A DNA: Not Detected Comment: (Reviewed) By: Ninoska Pineda NP Time: 04/05 1553 Comment: 1. No acute cardiopulmonary process is identified. By: Ninoska Pineda NP Final diagnoses: Viral illness Ninoska Pineda NP 04/05/201617 Cosigned by Maryam Gomez MD at 04/05/2020 8:10 PM CONVEYOR MAN EYOR MAN EYOR MAN Associated attestation - Maryam Gomez MD - 04/05/2020 8:10 PM CONVEYOR MAN ED Attestation Based on the medical record the care appears appropriate. * Breanna De Leon RN - 04/05/2020 2:49 PM CST Pt c/o fatigue, cough, and dizziness for 3 days. EYOR MAN documented in this encounter Plan of Treatment Not on file documented as of this encounter Procedures Procedure Name Priority Date/Time Associated Diagnosis Comments POCT HCG, URINE Routine 04/05/2020 3:37 PM CONVEYOR MAN URINALYSIS AND REFLEX TO MICROSCOPIC AND CULTURE STAT 04/05/2020 3:36 PM CONVEYOR MAN XR CHEST 1 VIEW ED 04/05/2020 3:29 PM CONVEYOR MAN STREPTOCOCCUS GROUP A PCR STAT 04/05/2020 3:21 PM CONVEYOR MAN MONONUCLEOSIS SCREEN STAT 04/05/2020 3:21 PM CONVEYOR MAN EGFR STAT 04/05/2020 3:16 PM CONVEYOR MAN DIFFERENTIAL AUTO STAT 04/05/2020 3:1 6 PM CONVEYOR MAN RESPIRATORY PATHOGEN PANEL Routine 04/05/2020 3:16 PM CONVEYOR MAN CBC WITH AUTO DIFFERENTIAL STAT 04/05/2020 3:16 PM CONVEYOR MAN TROPONIN T STAT 04/05/2020 3:16 PM CONVEYOR MAN COMPREHENSIVE METABOLIC PANEL STAT 04/05/2020 3:16 PM CONVEYOR MAN ECG 12-LEAD STAT 04/05/2020 3:06 PM CONVEYOR MAN documented in this encounter Results * POCT hCG, urine (04/05/2020 3:37 PM CONVEYOR MAN) HCG, ur, POC Negative Lot Number [id number] QC Backgroud Clear Acceptable QC Control Line Acceptable Urine 04/05/2020 3:37 PM CONVEYOR MAN Ninoska Pineda NP POINT OF CARE TEST ORDERABLE S Final Result * Urinalysis reflex to microscopic and culture Urine (04/05/2020 3:36 PM CONVEYOR MAN) Color, ur Yellow Yellow [facility] ([place]) Clarity, ur Clear Clear [facility] ([place]) Specific gravity, ur 1.017 1.010 - 1.025 [facility] ([place]) pH, urine 6.0 [facility] ([place]) Protein, ur ql Trace [...] culture not met. [facility] ([place]) Urine 04/05/2020 3:36 PM CONVEYOR MAN 04/05/2020 3:41 PM CONVEYOR MAN Narrative [facility] ([place]) - 04/05/2020 3:44 PM CONVEYOR MAN ?? Urine pH is affected by diet, medications, systemic acid-base disturbances, and renal tubular function. ??pH may affect urinary stone formation. ??For example, urine pH below 6.0 may help reduce the tendency for calcium phosphate stones and pH greater than 6.0 may reduce the tendency for uric acid stone formation. Source: [employer]. Last revised 03-08-2017 Ninoska Pineda NP LAB MICROBIOLOGY - GENERAL O RDERABLES Final Result [facility] ([place]) 1 [facility] Department [place] [address] * XR Chest 1 Vw Portable (04/05/2020 3:29 PM CONVEYOR MAN) Anatomical Region Laterality Modality Body, Chest N/A Computed Radiogr aphy 04/05/2020 3:31 PM CONVEYOR MAN Impressions 04/05/2020 3:32 PM CONVEYOR MAN 1. ??No acute cardiopulmonary process is identified. Electronically signed by: Ezra Whitley D.O. Narrative 04/05/2020 3:32 PM CONVEYOR MAN EXAMINATION: XR CHEST 1 VIEW ORDERING HEALTHCARE PROVIDER: NINOSKA PINEDA HISTORY: Fatigue, cough and dizziness for 3 days. TECHNIQUE: Frontal radiograph of the chest. COMPARISON: 09/11/2019 FINDINGS: HEART/MEDIASTINUM: The cardiomediastinal silhouette and pulmonary vasculature are normal. LUNGS/PLEURA: There is no airspace consolidation or pleural effusion. HARDWARE/LINES/TUBES: None. BONES: No acute findings. OTHER: No other acute findings. Procedure Note Ezra Whitley DO - 04/05/2020 EXAMINATION: XR CHEST 1 VIEW ORDERING HEALTHCARE PROVIDER: NINOSKA PINEDA HISTORY: Fatigue, cough and dizziness for 3 days. TECHNIQUE: Frontal radiograph of the chest. COMPARISON: 09/11/2019 FINDINGS: HEART/MEDIASTINUM: The cardiomediastinal silhouette and pulmonary vasculature are normal. LUNGS/PLEURA: There is no airspace consolidation or pleural effusion. HARDWARE/LINES/TUBES: None. BONES: No acute findings. OTHER: No other acute findings. IMPRESSION: 1. No acute cardiopulmonary process is identified. Electronically signed by: Ezra Whitley D.O. us Ninoska Pineda ATTORNEY LAW CLERK IMG XR PROCEDURES Final Resu lt * Mononucleosis screen (04/05/2020 3:21 PM CONVEYOR MAN) [place] Screen Negative Negative [facility] ([place]) Blood specimen (specimen) 04/05/2020 3:21 PM CONVEYOR MAN 04/05/2020 3:26 PM CONVEYOR MAN Ninoska Pineda NP LAB BLOOD ORDERABLES Final R esult Performing Organization Address [facility]/ZIP Co de Phone Number [facility] ([place]) [address] [place] [address] * Streptococcus Group A PCR (04/05/2020 3:21 PM CONVEYOR MAN) Pathologist [facility] [place] Strep A DNA Not Detected Not Detected [facility] ([place]) Comment: This test is performed using the [employer] Xpert Group A Streptococcal Assay. This is [...] been verified by the performing laboratory. Throat 04/05/2020 3:21 PM CONVEYOR MAN 04/05/2020 3:27 PM CONVEYOR MAN Ninoska Pineda NP LAB MICROBIOLOGY - GENERAL O RDERABLES Final Result Performing Organization Address [facility] Co de Phone Number [facility] ([place]) 1 [facility] [place] [address] * eGFR (04/05/2020 3:16 PM CONVEYOR MAN) Pathologist [facility] eGFR 136 mL/min/1.7 3 m2 [facility] ([place]) Comment: Interpretive Data Reference Interval Normal ?>/= [...] was last reviewed 2020 Blood specimen (specimen) 04/05/2020 3:16 PM CONVEYOR MAN 04/05/2020 3:21 PM CONVEYOR MAN Ninoska Pineda NP LAB BLOOD ORDERABLES Final R esult [facility] ([place]) 1 [facility] Department [place] [address] * (ABNORMAL) Differential, auto (04/05/2020 3:16 PM CONVEYOR MAN) Neutrophil abs 8.1(H) 1.7 - 6.5 K/cumm [facility] ([place]) Imm gran abs 0.0 0.0 - 0.1 K/cumm [facility] ([place]) Lymphocyte abs 1.1 0.8 - 3.3 K/cumm [facility] ([place]) Monocyte abs 0.5 0.2 - 0.8 K/cumm [facility] ([place]) Eosinophil abs 0.1 0.0 - 0.5 K/cumm [facility] ([place]) Basophil abs 0.0 0.0 - 0.1 K/cumm [facility] ([place]) Neutrophil pct 82.5 % [facility] ([place]) Comment: Interpretive [...] was last revised on 2017. Lymphocyte pct 11.3 % [facility] ([place]) Comment: Interpretive Data Percent cell count reference ranges are not reported, since discordance with absolute values may lead to misinterpretation of CBC data. Current Interpretive Data was last revised on 2017. Monocyte pct 4.9 % [facility] ([place]) Comment: Interpretive Data [...] last revised on 2017. Blood specimen (specimen) 04/05/2020 3:16 PM CONVEYOR MAN 04/05/2020 3:21 PM CONVEYOR MAN Ninoska Pineda ATTORNEY LAW CLERK LAB BLOOD ORDERABLES Final R esult [facility] ([place]) 1 [facility] Department [place] [address] * Respiratory pathogen panel Nasopharyngeal (04/05/2020 3:16 PM CONVEYOR MAN) Influenza A RNA Not Detected Not Detected [facility] ([place]) Comment:Testing performed by : [facility], [address] [place] [address], [place]., [address] Influenza B RNA Not Detected Not Detected [facility] ([place]) Comment:Testing performed by : [facility], [address] [place] [address], [place]., [address] RSV RNA Not Detected Not Detected [facility] ([place]) Comment:Testing performed by : [facility], [address] [place] [address]., [id number] COVID-19 RNA Not Detected Not Detected [facility] ([place]) Comment:Testing performed by : [facility], [address] [place] [address]., [address] Coronavirus 229E RNA Not Detected Not Detected [facility] ([place]) Comment:Testing performed by : [facility], [address] [place] [address]., [address] Coronavirus HKU1 RNA Not Detected Not Detected [facility] ([place]) Comment:Testing performed by : [facility], [address] [place] [address]., [id number] Coronavirus NL63 RNA Not Detected Not Detected [facility] ([place]) Comment:Testing performed by : [facility], [address] [place] [address]., [address] Coronavirus OC43 RNA Not Detected Not Detected [facility] ([place]) Comment:Testing performed by : [facility], [address] [place] [address]., [phone] Adenovirus DNA Not Detected Not Detected [facility] ([place]) Comment:Testing performed by : [facility], [address] [place] [address], [address] Metapneumovirus RNA Not Detected Not Detected [facility] ([place]) Comment:Testing performed by : [facility], [address] [place] [address]., [address] Rhinovirus/Enterov irus RNA Not Detected Not Detected [facility] ([place]) Comment:Testing performed by : [facility], [address] [place] [address]., [address] Parainfluenza 1 RNA Not Detected Not Detected [facility] ([place]) Comment:Testing performed by : [facility], [address] [place] [address]., [phone] Parainfluenza 2 RNA Not Detected Not Detected [facility] ([place]) Comment:Testing performed by : [facility], [address] [place] [address]., [address] Parainfluenza 3 RNA Not Detected Not Detected [facility] ([place]) Comment:Testing performed by : [facility], [address] [place] [address], [phone] Parainfluenza 4 RNA Not Detected Not Detected [facility] ([place]) Comment:Testing performed by : [facility], [address] [place] [address]., [phone] B. pertussis DNA Not Detected Not Detected [facility] ([place]) Comment:Testing performed by : [facility], [address] [place] [address]., [id number] B. parapertussis DNA Not Detected Not Detected [facility] ([place]) Comment:Testing performed by : [facility], [address] [place] [address]., [id number] C. pneumoniae DNA Not Detected Not Detected [facility] ([place]) Comment:Testing performed by : [facility], [address] [place] [address]., [phone] M. pneumoniae DNA Not Detected Not Detected [facility] ([place]) Comment: The [employer] FilmArray Respiratory Panel (RP2.1) assay is a multiplexed nucleic acid test capable of simultaneous qualitative detection and identification of multiple respiratory viral and bacterial nucleic acids, including SARS Coronavirus 2 (the causative agent of COVID-19). The following bacteria, viruses and virus subtypes can be identified using the FilmArray RP2 assay: Bordetella pertussis, Bordetella parapertussis, Chlamydophila pneumoniae, Mycoplasma pneumoniae, Adenovirus, SARS Coronavirus 2, [...] tract infection. The [employer] RP2.1 assay has emergency use authorization from the FDA for testing of ATTORNEY LAW CLERK swabs. ??The performance characteristics of this assay have been determined by [facility]. Current interpretive data was last revised on 2019. Testing performed by: [facility], [address] [place] [address], [phone] Employeed in healthcare? Unknown [facility] ([place]) Comment:Testing performed by : [address], [address] status? Unknown CE SAMANTHA [facility] ([place]) Comment:Testing performed by : [address], [address] Group care resident? Unknown [facility] ([place]) Comment:Testing performed by : [address], [address] Hospitalized? No [facility] ([place]) Comment:Testing performed by : [address], [address] Is patient in ICU? No Rima [facility] ([place]) Comment:Testing performed by : [address], [address] Symptomatic as defined by CDC? Yes [facility] ([place]) Comment:Testing performed by : [address], [address] Nasopharyngeal 04/05/2020 3: 16 PM CONVEYOR MAN 04/05/2020 9:30 PM CONVEYOR MAN Narrative [facility] ([place]) - 04/05/2020 10:26 PM CONVEYOR MAN Date of symptom onset->04/02/20 Known exposure to confirmed or suspected COVID-19 case?->No Surveillance testing for transplant patient?->No Ninoska Pineda ATTORNEY LAW CLERK LAB MICROBIOLOGY - GENERAL O RDERABLES Final Result [facility] ([place]) 1 [facility] [place] [address] * Troponin T (04/05/2020 3:16 PM CONVEYOR MAN) Pathologist [facility] [place] Troponin T <0.01 0.00 - 0.01 ng/mL [facility] ([place]) Comment: Interpretive Data Reference ranges for children <18 years of age have not been established. - > or = 18 years: Serial determinations are recommended for the diagnosis of myocardial infarction. ??Temporal rise and fall are consistent with myocardial infarction when at least one value is above the 99th percentile upper reference limit for troponin assay. ??Journal of the [place] College [employer] 2012;60:1581-98. Current Interpretive Data Last Revised Date: 2017. Blood specimen (specimen) 04/05/2020 3:16 PM CONVEYOR MAN 04/05/2020 3:21 PM CONVEYOR MAN Ninoska Pineda ATTORNEY LAW CLERK LAB BLOOD ORDERABLES Final R esult Performing Organization Address [facility] Co de Phone Number [facility] ([place]) 1 [facility] [place] [address] * (ABNORMAL) Comprehensive metabolic panel (04/05/2020 3:16 PM CONVEYOR MAN) Pathologist [facility] Sodium 138 135 - 145 mmol/L [facility] ([place]) Potassium, pl 3.9 3.3 - 4.9 mmol/L [facility] ([place]) Chloride 103 97 - 110 mmol/L [facility] ([place]) CO2 25 22 - 32 mmol/L [facility] ([place]) Anion gap 9 2 - 15 mmol/L [facility] ([place]) BUN 15 8 - 25 mg/dL [facility] ([place]) Creatinine 0.46(L) 0.60 - 1.10 mg/dL [facility] Glucose 102 70 - 199 mg/dL [facility] ([place]) Comment: Interpretive Data Fasting [...] 1.2 mg/dL [facility] ([place]) Protein, pl 6.9 6.5 - 8.5 g/dL [facility] ([place]) Albumin 4.1 3.5 - 5.0 g/dL [facility] ([place]) Alk phos 54 40 - 130 Units/L [facility] ([place]) ALT 10 7 - 45 Units/L [facility] ([place]) AST 13 10 - 45 Units/L [facility] ([place]) Blood specimen (specimen) 04/05/2020 3:16 PM CONVEYOR MAN 04/05/2020 3:21 PM CONVEYOR MAN us Ninoska Pineda ATTORNEY LAW CLERK LAB BLOOD ORDERABLES Final R esult [facility] ([place]) 1 [facility] Department [place] [address] * CBC with auto differential (04/05/2020 3:16 PM CONVEYOR MAN) WBC 9.8 3.8 - 9.9 K/cumm [facility] ([place]) Hgb 12.6 11.9 - 15.5 g/dL [facility] ([place]) Hct 37.6 35.6 - 45.5 % [facility] ([place]) Plt 302 150 - 400 K/cumm [facility] ([place]) MPV 9.4 9.1 - 12.3 fL [facility] ([place]) RBC 4.08 3.90 - 5.20 M/cumm [facility] ([place]) MCV 92.2 81.3 - 96.4 fL [facility] ([place]) MCH 30.9 27.1 - 33.3 pg [facility] ([place]) MCHC 33.5 32.3 - 35.7 g/dL [facility] ([place]) RDW CV 13.2 11.1 - 14.9 % [facility] ([place]) RDW SD 45.5 35.7 - 48.1 fL [facility] ([place]) NRBC abs 0.00 0.00 - 0.01 K/cumm [facility] ([place]) Blood specimen (specimen) 04/05/2020 3:16 PM CONVEYOR MAN 04/05/2020 3:21 PM CONVEYOR MAN Ninoska Pineda NP LAB BLOOD ORDERABLES Final R esult Performing Organization Address City/[facility] Co de Phone Number [facility] ([place]) 1 [facility] [place] [address] * ECG 12 lead (04/05/2020 3:06 PM CONVEYOR MAN) 04/05/2020 3:06 PM CONVEYOR MAN Narrative [facility] - 04/05/2020 5:16 PM CONVEYOR MAN Vent Rate: 83 bpm RR Interval: 720 msec [place] Interval: 147 msec QRS Duration: 87 msec QT Interval: 381 msec QTC Interval: 421 msec P-R-T [place]: 39 - 59 - 10 degrees SINUS RHYTHM NONSPECIFIC T-WAVE ABNORMALITY BORDERLINE ECG no change from prior EKG Electronically Signed By: Tristan Edmondson MD Ninoska Pineda ATTORNEY LAW CLERK ECG ORDERABLES Final Result Performing Organization Address [facility] Co de Phone Number [facility] documented in this encounter Visit Diagnoses Diagnosis Viral illness- Primary Unspecified viral infection, in conditions classified elsewhere and of unspecified site documented in this encounter Active and Recently Administered Medications Times are shown in CONVEYOR MAN. Scheduled Medication Order 04/03/2020 04/04/2020 04/05/2020 sodium chloride 0.9% bolus 1,000 mL 1,000 mL, intravenous, at 1,000 mL/hr, Administer over 1 Hours, Once, On Sun04/05/20 at 1523, For 1 dose 1618 (Not Given - Pr ovider: Leti Gutierres RN - Reason: Other - Comment: Pt wanting to go home) documented in this encounter Orders Medications Ordered That Omer ht Not Have Been Administered Count Last Ordered Date First Ordered Date sodium chloride 0.9% bolus 1,000 mL 1 04/05 documented in this encounter Additional Health Concerns Infection Onset Date Last Indicated Resolved Time COVID: Suspected 04/05/2020 04/05/2020 04/05/2020 10:27 PM CONVEYOR MAN documented as of this encounter Care Teams Formstone Fitter Relationship Specialty [place] [address] [address] [place] [address] PCP - General 07/04/19 [place] [address] [address] [place] [address] 11/16/18 documented as of this encounter
--- OUTSIDE RECORDS SUMMARY | 2024-02-24 20:10 | XMS_ITS | Encounter Summary ---
Author Organization [facility] Address [address] [place] [address] Phone Care Team Providers Care Knife Changer Name Role Phone Huseyin Dangelo MD Unavailable [phone] Brian Mon MD Primary Care Provider + Reason for Visit * Consultation (Routine) - Closed Specialty Diagnoses / Procedures Referred By Contac t Referred To Contact Audiology Diagnoses Bilateral chronic serous otitis media Niurka Richardson MD [address] [place] [address] Phone: tel: fax: [facility] (All Locations) Referral ID Status Reason Start Date Expiration Date V isits Requested Visits Authorized [id number] Closed Specialty Services Required 03/31/2020 04/30/2021 3 3 Encounter Details Date Type Department Care Team (Latest Contact Info) Description 03/31/2020 11:45 AM CHIEF CLERK Procedure visit [facility] Otolaryngology [address] [facility] Medical Office Building [address] [place] [address] Ade Smith CCC-Dianelys [address] DEPT OTOLARYNGOLOGY, [facility] [address] [place] [address] History of ear infections (Primary Dx); Bilateral chronic serous otitis media; Conductive hearing loss, bilateral Social History Tobacco Use Types Packs/Day Years [...] on file documented as of this encounter Procedure Notes * Ade Smith CCC-A - 03/31/2020 11:45 AM CST Procedures Carito Rausch 1990 03/31/2020 Audiogram completed per physician referral. See scanned audiogram for results. Medical history was obtained by durable medical equipment repairer and reviewed. Results were reviewed with the patient by physician. Ade Smith MS, DONNA F CLERK documented in this encounter Plan of Treatment Not on file documented as of this encounter Procedures Procedure Name Priority Date/Time Associated Diagnosis Comments AUDBASE RESULTS 03/31/2020 11:45 AM CHIEF CLERK documented in this encounter Results * AUDBASE RESULTS (03/31/2020 11:45 AM CHIEF CLERK) Provider Scanning AUDIOLOGY SERVICES ORDERABLES Final Result documented in this encounter Visit Diagnoses Diagnosis History of ear infections- Primary Bilateral chronic serous otitis media Simple or unspecified chronic serous otitis media Conductive hearing loss, bilateral documented in this encounter Orders Outpatient Referral Count Last Ordered Date Fir st Ordered Date AMB REFERRAL TO AUDIOLOGY (ADULT) 1 021 AMB REFERRAL TO ENT 1 03/31/2020 documented in this encounter Care Teams Knife Changer Relationship Specialty [place] [address] [place] [address] PCP - General 07/04/19 [place] [address] [address] 11/16/18 documented as of this encounter
--- OUTSIDE RECORDS SUMMARY | 2024-02-24 20:10 | XMS_ITS | Encounter Summary ---
Author Organization [facility] Address [address] [place] [address] Phone Care Team Providers Care Senior Asset Manager Name Role Phone Huseyin Dangelo MD Unavailable [phone] Brian Mon MD Primary Care Provider + Encounter Details Date Type Department Care Team (Late st Contact Info) Description 05/12/2020 Telephone [facility] Orthopaedic Surgery [address] [facility] 2nd Floor [address] [place] [address] Jorge Fernandes MD [address] [facility] [address] [place] [address] Social History Tobacco Use Types [...] encounter Miscellaneous Notes * Telephone Encounter - Stacy Perla RMA - 05/12/2020 2:06 PM CDT Received a call from [facility] letting us know that Carito would like to cancel her surgery for 05/20/20. This is the 3rd time that she has canceled. She will need to come back in to see Dr Fernandes if she would like to reschedule documented in this encounter Plan of Treatment Not on file documented as of this encounter Visit Diagnoses Not on filedocumented in this encounter Care Teams Senior Asset Manager Relationship Specialty [place] [address] [address] [address] PCP - General 07/04/19 [place] [address] [address] [address] 11/16/18 documented as of this encounter
--- OUTSIDE RECORDS SUMMARY | 2024-02-24 20:10 | XMS_ITS | Encounter Summary ---
Author Organization [facility] [employer] [facility] Address [address] [place] [address] Phone Care Team Providers Care Physical Therapy Professor Name Role Phone Huseyin Dangelo MD Unavailable [phone] Brian Mon MD Primary Care Provider + Encounter Details Date Type Department Care Team (Late st Contact Info) Description 06/03/2020 Telephone [facility] Obstetrics and Gynecology [address] [place] [address] Minal Brady Social History Tobacco Use Types [...] * Telephone Encounter - Minal Brady - 06/03/2020 11:47 AM CDT 06/03-called to schedule. no answer, voicemail full. needs scheduled after her 1st ob visit with her OB on 06/18. kac Needs Initial US and OBC OBC COM DX: SAMANTHA DX; LUPUS; RECURRENT SAB MANE 01/27 RECS IN [employer] documented in this encounter Plan of Treatment Not on file documented as of this encounter Visit Diagnoses Not on filedocumented in this encounter Care Teams Physical Therapy Professor Relationship Specialty [place] [address] [address] [place] [address] PCP - General 07/04/19 [place] [address] [address] [place] [address] 11/16/18 documented as of this encounter
--- OUTSIDE RECORDS SUMMARY | 2024-02-24 20:11 | XMS_ITS | Encounter Summary ---
Author Organization [facility] Address [address] [place] [address] Phone Care Team Providers Care Oil Refinery Process Technician Name Role Phone Huseyin Dangelo MD Unavailable [phone] Brian Mon MD Primary Care Provider + Encounter Details Date Type Department Care Team (Late st Contact Info) Description 03/18/2020 Orders Only [facility] Infusion Therapy [address] [facility] Advanced Medicine 5th [place] [address] [place] [address] Darius Fernandez MD [address] [facility] [address] [address] [place] [address] Adrenal insufficiency (CMS/HCC) Social History Tobacco Use [...] (HCC) Glucocorticoid deficiency documented in this encounter Orders Appointment Requests Count Last Ordered Date Fi rst Ordered Date INFUSION APPT REQUEST 60 MIN 1 03/18/2020 documented in this encounter Care Teams Oil Refinery Process Technician Relationship Specialty [place] [address] [address] [address] PCP - General 07/04/19 [place] [address] [address] [address] 11/16/18 documented as of this encounter
--- OUTSIDE RECORDS SUMMARY | 2024-02-24 20:11 | XMS_ITS | Encounter Summary ---
Author Organization [facility] Address [address] [facility] [address] [place] [address] Care Team Providers Care Car Barn Laborer Name Role Phone Huseyin Dangelo MD Unavailable [phone] Brian Mon MD Primary Care Provider + Reason for Visit * Reason Comments Earache both ears, was put o n amox had reaction ended up in hospital, then was on Zpak and not helping Encounter Details Date Type Department Care Team (Late st Contact Info) Description 02/03/2020 9:30 AM GROCERY STOCKER Office Visit [facility] [address] [facility] [place] [address] [place] [address] Treva Kate, OIL LEASE BROKER [address] [facility] [place] [address] Acute otalgia, bilateral (Primary Dx); Dizziness Social History Tobacco Use [...] Reading Time Taken Comments Blood Pressure 112/70 02/03/2020 9:35 AM GROCERY STOCKER Pulse 90 02/03/2020 9:35 AM GROCERY STOCKER Temperature 36 ??C (96.8 ??F) 02/03/2020 9:35 AM GROCERY STOCKER Respiratory Rate 16 02/03/2020 9:35 AM GROCERY STOCKER Oxygen Saturation 98% 02/03/2020 9:35 AM GROCERY STOCKER Inhaled Oxygen Concentration - - Weight 72.6 kg (160 lb) 02/03/2020 9:35 AM GROCERY STOCKER Height 160 cm (5' 3 ) 02/03/2020 9:35 AM GROCERY STOCKER Body Mass Index 28.34 02/03/2020 9:35 AM GROCERY STOCKER documented in this encounter Patient Instructions * Patient Instructions* Treva Kate NP - 02/03/2020 9:30 AM GROCERY STOCKER You can take Tylenol/Motrin for pain/fever Complete any medications as prescribed If you were prescribed ear drops- they contain a steroid & will help reduce redness, swelling, pain in the ear You can use warm moist heat to decrease pain Sudafed or Flonase for fluid in ears Meclizine for dizziness Follow up w PCP if you are not getting better in 3 days ERY STOCKER documented in this encounter Ordered Prescriptions Prescription Sig Dispense Quantity Refills Last Filled Start Date End Date meclizine (ANTIVERT) 25 mg tabletIndications: Dizziness Take 1 tablet (25 mg total) by mouth 3 (three) times a day as needed for dizziness 30 tablet 02/03/2020 1 documented in this encounter Progress Notes * Treva Kate NP - 02/03/2020 9:30 AM CST Images from the original note were not included. Subjective/Objective Patient ID: Carito Rausch is a 29 y.o. female. Chief Complaint Earache (both ears, was put on amox had reaction ended up in hospital, then was on Zpak and not helping) Presents to clinic for bilateral hearing loss after having an ear infection. She was treated w Amoxicillin, had a reaction that put her in the hospital. She completed a zpak, but now she cannot hear.Ears still feel full. She has also been using nasal sprays. Earache There is pain in both ears. This is a recurrent problem. The current episode started 1 to 4 weeks ago. The problem occurs constantly. The problem has been unchanged. There has been no fever. Associated symptoms include hearing loss. Pertinent negatives include no coughing, ear discharge, headaches,sore throat or vomiting. She has tried antibiotics for the symptoms. The treatment provided no relief. Review of Systems Constitutional: Negative for chills and fever. HENT: Positive for ear pain and hearing loss. Negative for ear discharge and sore throat. Respiratory: Negative for cough and shortness of breath. Gastrointestinal: Negative for nausea and vomiting. Neurological: Positive for dizziness. Negative for headaches. Physical Exam Vitals signs reviewed. Constitutional: General: She is not in acute distress. Appearance: Normal appearance. She is well-developed. HENT: Head: Normocephalic. Right Ear: Hearing, tympanic membrane, ear canal and external ear normal. Left Ear: Hearing, tympanic membrane, ear canal and external ear normal. Nose: Right Sinus: No maxillary sinus tenderness or frontal sinus tenderness. Left Sinus: No maxillary sinus tenderness or frontal sinus tenderness. Mouth/Throat: Mouth: Mucous membranes are moist. Pharynx: Oropharynx is clear. Eyes: Conjunctiva/sclera: Conjunctivae normal. Neck: Musculoskeletal: Normal range of motion and neck supple. Cardiovascular: Rate and Rhythm: Normal rate and regular rhythm. Pulmonary: Effort: Pulmonary effort is normal. Breath sounds: Normal breath sounds and air entry. Musculoskeletal: Normal range of motion. Lymphadenopathy: Cervical: No cervical adenopathy. Skin: General: Skin is warm and dry. Neurological: General: No focal deficit present. Mental Status: She is alert and oriented to person, place, and time. GCS: GCS eye subscore is 4. GCS verbal subscore is 5. GCS motor subscore is 6. Sensory: Sensation is intact. Gait: Gait is intact. Psychiatric: Speech: Speech normal. Behavior: Behavior normal. Vitals: 02/03/20 0935 BP: 112/70 BP Location: Left arm Patient Position: Sitting Pulse: 90 Resp: 16 Temp: 36 ??C (96.8 ??F) TempSrc: Temporal SpO2: 98% Weight: 72.6 kg (160 lb) Height: 160 cm (5' 3 ) Assessment/Plan You can take Tylenol/Motrin for pain/fever Complete any medications as prescribed If you were prescribed ear drops- they contain a steroid & will help reduce redness, swelling, pain in the ear You can use warm moist heat to decrease pain Sudafed or Flonase for fluid in ears Follow up w PCP if you are not getting better in 3 days Discussed seeing ENT- she has an appt on 02/14 Diagnoses and all orders for this visit: Acute otalgia, bilateral (Primary) Dizziness - meclizine (ANTIVERT) 25 mg tablet; Take 1 tablet (25 mg total) by mouth 3 (three) times a day as needed for dizziness Disposition- Discussed medications dosages, usage & potential [...] in agreement with the plan of care Treva Kate NP ERY STOCKER documented in this encounter Plan of Treatment Not on file documented as of this encounter Visit Diagnoses Diagnosis Acute otalgia, bilateral- Primary Dizziness Dizziness and giddiness documented in this encounter Historical Medications * This list may reflect changes made after this encounter. predniSONE (DELTASONE) 1 mg tablet Take 1 mg by mouth daily 01/25/2020 02/16/2020 ipratropium (ATROVENT) 0.03 % nasal spray INSTILL 1 SPRAY IN EACH NOSTRIL TWICE DAILY 01/28/2020 09/15/2020 added in this encounter Care Teams Car Barn Laborer Relationship Specialty [place] [address] [address] [place] [address] PCP - General 07/04/19 [place] [address] [address] [place] [address] 11/16/18 documented as of this encounter
--- OUTSIDE RECORDS SUMMARY | 2024-02-24 20:11 | XMS_ITS | Encounter Summary ---
Author Organization [facility] [employer] [facility] Address [address] [place] [address] Phone Care Team Providers Care Medical Appliance Maker Name Role Phone Huseyin Dangelo MD Unavailable [phone] Brian Mon MD Primary Care Provider + Reason for Visit * Episode Based Medications (Routine) - Closed Specialty Diagnoses / Procedures Referred By Contac t Referred To Contact Diagnoses Lupus Procedures DC BELIMUMAB INJECTION Carolina Delarosa MD [address] [place] [address] Phone: tel: fax: [facility] Infusion Therapy [address] [place] [address] [address] [place] [address] Phone: tel: Referral ID Status Reason Start Date Expiration Date Visits Re quested Visits Authorized [id number] Closed 09/18/2019 09/16/2020 15 15 Encounter Details Date Type Department Care Team (Late st Contact Info) Description 03/19/2020 10:00 AM PROGRAMMING MANAGER Infusion [facility] Infusion Therapy [address] [place] [address] [address] [place] [address] Lupus (CMS/HCC) (Primary Dx) Social [...] Sign Reading Time Taken Comments Blood Pressure 110/74 03/19/2020 11:15 AM PROGRAMMING MANAGER Pulse 80 03/19/2020 11:15 AM PROGRAMMING MANAGER Temperature 36.9 ??C (98.4 ??F) 03/19/2020 9:43 AM CS T Respiratory Rate - - Oxygen Saturation - - Inhaled Oxygen Concentration - - Weight - - Height - - Body Mass Index - - documented in this encounter Progress Notes * Carito Guajardo, PRO - 03/19/2020 10:00 AM CST Pt here for Benlysta infusion. Pt denies any recent fevers or illness. PIV started and VSS. Infusion started. Pt instructed to ring call light for any help or needs and pt verbalized understanding. Infusion complete and pt tolerated well. RAMMING MANAGER documented in this encounter Plan of Treatment Not on file documented as of this encounter Visit Diagnoses Diagnosis Lupus- Primary Systemic lupus erythematosus documented in this encounter Administered Medications Inactive Administered Medications - up to 3 most recent administrations Medication Order MAR Action Action Date Dose Rate Site acetaminophen (TYLENOL) tablet 650 mg 650 mg, oral, Once, On Sun03/19/20 at 1015, For 1 dose, Give 30 minutes prior to infusion for infusion reaction prophylaxis.Indications:Lupus Given 03/19/2020 9:50 AM PROGRAMMING MANAGER 650 mg beliMUMAB (BENLYSTA) 720 mg in sodium chloride 0.9% 250 mL IVPB 720 mg, intravenous, at 250 mL/hr, Administer over 60 Minutes, Once, On Sun03/19/20 at 1045, For 1 dose, Maintenance Dose Please use non-filter tubing. Protect from light, Indications: Systemic Lupus ErythematosusIndications:Syste marie Lupus Erythematosus New Bag 03/19/2020 10:07 AM PROGRAMMING MANAGER 720 mg 250 mL/hr diphenhydrAMINE (BENADRYL) tab/cap 25 mg 25 mg, oral, Once, On Sun03/19/20 at 1015, For 1 dose, Please order either PO or IV. DO NOT give both IV and PO. Please give 30 minutes prior to infusion for infusion reaction prophylaxis.Indications:Lupus Given 03/19/2020 9:50 AM PROGRAMMING MANAGER 25 mg ondansetron (ZOFRAN) injection 4 mg 4 mg, intravenous, Administer over 2 Minutes, Once, On Sun03/19/20 at 1015, For 1 dose, Give 30 minutes prior to infusion for infusion reaction prophylaxis.Indications:Lupus Given 03/19/2020 9:50 AM PROGRAMMING MANAGER 4 mg sodium chloride 0.9% flush 10 mL 10 mL, intravenous, As needed, line care, Starting on Sun03/19/20 at 0937, Flush pre and post IV catheter use.Indications:Lupus Given 03/19/2020 9:50 AM PROGRAMMING MANAGER 10 mL documented in this encounter Orders Nursing Count Last Ordered Date First Orde red Date DAILY WEIGHTS 03/19/2020 ONCBCN NURSING COMMUNICATION [id number] 2 0 03/19/2020 PATIENT EDUCATION (SPECIFY) 03/19/2020 VITAL SIGNS PRE-INFUSION 1 03/19/2020 Appointment Requests Count Last Ordered Date Fi rst Ordered Date INFUSION APPT REQUEST 90 MIN 1 03/19/2020 documented in this encounter Care Teams Medical Appliance Maker Relationship Specialty [place] [address] [address] [place] [address] PCP - General 07/04/19 [place] [address] [address] [place] [address] 11/16/18 documented as of this encounter
--- OUTSIDE RECORDS SUMMARY | 2024-02-24 20:11 | XMS_ITS | Encounter Summary ---
Author Organization [facility] Address [address] [place] [address] Phone Care Team Providers Care Colors Custodian Name Role Phone Huseyin Dangelo MD Unavailable [phone] Brian Mon MD Primary Care Provider + Reason for Visit * Reason Onset Date Comments Med Management 02/10/2020 prednisone Encounter Details Date Type Department Care Team (Late st Contact Info) Description 02/10/2020 Telephone [facility] Endocrinology Metabolism and Lipid [address] [facility] 5th [place] [address] [place] [address] Etienne Hernandez EMT Med Management (prednisone) Social History Tobacco Use Types Packs/Day Years [...] encounter Miscellaneous Notes * Telephone Encounter - Etienne Hernandez EMT - 02/10/2020 2:06 PM CST Patient has been tapering down her prednisone 1mg every week. She is down to 8mg. States her Lupus is in remission and is requesting repeat labs to check status of latia's disease and how her body is reacting to tapered steroids. Advised message would be sent to provider and we will f/u with answer. She agreed and asked that wecall her first and if she doesn't answer to send a [employer] message. E RUNNER documented in this encounter Plan of Treatment Not on file documented as of this encounter Visit Diagnoses Not on filedocumented in this encounter Care Teams Colors Custodian Relationship Specialty [place] [address] [address] [place] [address] PCP - General 07/04/19 [place] [address] [address] [place] [address] 11/16/18 documented as of this encounter
--- OUTSIDE RECORDS SUMMARY | 2024-02-24 20:11 | XMS_ITS | Encounter Summary ---
Author Organization [facility] Address [address] [place] [address] Care Team Providers Care Citrix Architect Name Role Phone Huseyin Dangelo MD Unavailable [phone] Brian Mon MD Primary Care Provider + Encounter Details Date Type Department Care Team (Late st Contact Info) Description 02/06/2020 Telephone [facility] Surgeon [address] [place] [address] Sheron Mukherjee MD [address] [facility] [address] [place], [place] [id number] Social History Tobacco Use Types Packs/Day Years [...] encounter Miscellaneous Notes * Telephone Encounter - Sheron Mukherjee MD - 02/06/2020 9:32 PM CST OTOLARYNGOLOGY - HEAD & NECK SURGERY TELEPHONE NOTE Carito Rausch , 29 y[address]o. [address] Richardson Hx: Patient has not previously been evaluated at [place] in our otolaryngology clinic. Per patient report she have a history of bilateral ear infections a few weeks prior, endorses continued hearing loss for about the past week that she has been seen in urgent care for and has been told that she hasfluid behind both ears. Patient called today because she has ongoing hearing loss for the past week, no acute changes. She denies any acute current issues but notes that hearing loss has been a contributing to her yelling loudly at work, having difficulty hearing others. Discussed with patient she should wait to be evaluated in Otolaryngology Clinic, she can discuss with clinician schedulers regarding earlier appointment. Patient pushed for further advice as far as her concern for fluid behind her ears. Discussed with patient that without evaluating her ears again offered based on whether she has fluid or not. Discussed conservative management of fluid includes that fluid tends to persist for up to 6 weeks following an ear infection. Discussed that she could try NeilMed saline irrigations to her nose with twicea day. Patient asked if using an ear candle would be a good idea, advised against this as a cause of perforation or other injury to the ear canal. Patient will follow-up as scheduled. Sheron Mukherjee MD Otolaryngology-Head and Neck Surgery Resident Physician, PGY-2 Weekends/afterhours: ENT Consult R SAW OPERATOR documented in this encounter Plan of Treatment Not on file documented as of this encounter Visit Diagnoses Not on filedocumented in this encounter Care Teams Citrix Architect Relationship Specialty [place] [address] [address] [place] [address] PCP - General 07/04/19 [place] [address] [address] [place] [address] 11/16/18 documented as of this encounter
--- OUTSIDE RECORDS SUMMARY | 2024-02-24 20:11 | XMS_ITS | Encounter Summary ---
Author Organization [facility] Address [address] [place] [address] Phone Care Team Providers Care Geographic Information Systems Analyst Name Role Phone Huseyin Dangelo MD Unavailable [phone] Brian Mon MD Primary Care Provider + Encounter Details Date Type Department Care Team (Late st Contact Info) Description 02/17/2020 2:40 PM PRODUCTION ASSEMBLER Telemedicine [facility] Endocrinology Metabolism and Lipid [address] [facility] Advanced Medicine 5th [place] [address] [place] [address] Darius Fernandez MD [address] [facility] [address] [place] [address] 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 Endocrine Patient Visit This was a telemedicine visit with Umer anglin which took place via real-time video connection with [employer]. During the visit, I was located in the office and the patient was located at home.The patient visit started at 2:40 and ended at 2:55 . Total encounter time was 30 minutes, which includes time spent today on pre charting, the patient encounter, and post charting. The patient has been informed that the visit may not be secure and acknowledged the information. I have explained the option of participating in a telephone or video visit during the [facility] to the patient. After being given an opportunity to ask questions about and discuss this type of visit, the patient verbally consented to proceeding with the telephone/video visit.The patient understands that this service replaces an office visit and they may be billed and/or responsible for any applicable copayments. Francois Fernandez MD Referring provider: Griffin Burr MD Chief Complaint: Fatigue HPI: Initial visit on 10/24/2019 Patient is a 29 y.o. Lady with history of lupus which has required terminal gauger steriod use for 2.5 years. Has required high Dose in the past up to 60 mg daily. Currently attempting taper. Current dose is 6 mg daily. She has been tolerating the taper. She noticed Her Face has become less puffy. She ishappy. Current Outpatient Medications Medication ??? ALPRAZolam (XANAX) 0.25 mg tablet ??? belimumab (Benlysta) auto-injector ??? diclofenac sodium (VOLTAREN) 1 % gel ??? ergocalciferol (VITAMIN D) 50,000 unit capsule ??? ferrous gluconate 324 mg (38 mg of elemental iron) tablet ??? hydrOXYchloroQUINE (PLAQUENIL) 200 mg tablet ??? ipratropium (ATROVENT) 0.03 % nasal spray ??? meclizine (ANTIVERT) 25 mg tablet ??? multivitamin capsule ??? omeprazole (PriLOSEC) 20 mg capsule ??? ondansetron (ZOFRAN) 4 mg tablet ??? predniSONE (DELTASONE) 1 mg tablet ??? predniSONE (DELTASONE) 10 mg tablet ??? predniSONE (DELTASONE) 5 mg tablet ??? triamcinolone (KENALOG) 0.1 % cream ??? valACYclovir (VALTREX) 500 mg tablet ??? Ventolin HFA 90 mcg/actuation inhaler No current facility-administered medications for this visit. Review of Systems Review of systems per HPI and otherwise all other systems are negative. OBJECTIVES Physical exam: There were no vitals taken for this visit. General Appearance: NAD, well developed Head: No obvious abnormality, Skin: Color/texture normal, Neurologic: AAOX4. Psychosocial: Normal affect and mood. Past Medical History: Diagnosis Date ??? Anemia [...] and Syncope Syncope ??? Amoxicillin Rash ??? Escitalopram Other (See comments) Caused seizures ??? Venlafaxine Itching Social History Tobacco Use ??? Smoking status: Former Smoker Quit date: 12/28/2018 Years since quittin.1 ??? Smokeless tobacco: Never Used Substance Use Topics ??? Alcohol use: Yes Comment: occasionally Family History Problem Relation Age of Onset ??? Gout Mother ??? Diabetes Mother ??? Hypertension Mother ??? Heart disease Father ??? Stroke Father ??? Colon cancer Other Labs: Results for UMER ELDER ( ) as of 11/16/2019 22:38 ?? Ref. Range 08/25/2019 08:19 TSH Latest Ref Range: 0.30 - 4.20 mcIUnit/mL 2.96 Prolactin Latest Ref Range: 4.8 - 23.3 ng/mL 27.3 (H) ?? Results for UMER ELDER ( ) as of 11/16/2019 22:38 ?? Ref. Range 09/28/2019 10:16 Sodium Latest Ref Range: 135 - 145 mmol/L 141 Potassium, pl Latest Ref Range: 3.3 - 4.9 mmol/L 3.6 Chloride Latest Ref Range: 97 - 110 mmol/L 102 CO2 Latest Ref Range: 22 - 32 mmol/L 27 Anion gap Latest Ref Range: 2 - 15 mmol/L 12 BUN Latest Ref Range: 8 - 25 mg/dL 12 Creatinine Latest Ref Range: 0.60 - 1.10 mg/dL 0.65 Glucose Latest Ref Range: 70 - 199 mg/dL 97 Calcium Latest Ref Range: 8.5 - 10.3 mg/dL 9.6 GFR Latest Units: mL/min/1.73 m2 122 ?? Results for UMER ELDER ( ) as of 11/16/2019 23:07 ?? Ref. Range 10/28/2019 08:16 ACTH Latest Units: pg/mL <5.0 (L) Cortisol Latest Ref Range: 4.8 - 19.5 mcg/dl <0.1 (L) DHEA-S Latest Ref Range: 98.8 - 340.0 mcg/dL 5.8 (L) IMAGING: EXAMINATION: Magnetic resonance imaging (MRI) [...] the patient's seizures. Assessment/Plan: Patient is a 29 y.o. Lady with history of lupus which has required terminal gauger steriod use for 2.5 years. She is now on steroid taper. Current prednisone dose is 6 mg daily. Will continue 6 mg daily for one week and then drip the dose to 5 mg daily. Will get cosyntropin stim test after she is on 5 mg daily I have answered her questions. 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
--- OUTSIDE RECORDS SUMMARY | 2024-02-24 20:11 | XMS_ITS | Encounter Summary ---
Author Organization [facility] Address [address] [place] [address] Phone Care Team Providers Care Product Builder Name Role Phone Huseyin Dangelo MD Unavailable Brian Mon MD Primary Care Provider + Reason for Visit * Reason Onset Date Comments Successful Phone Call 02/24/2020 Encounter Details Date Type Department Care Team (Late st Contact Info) Description 02/24/2020 Telephone [facility] Endocrinology Metabolism and Lipid [address] [facility] Advanced Medicine 5th [place] [address] [place] [address] Neisha Wolf MD [address] [facility] [address] [place] [address] Successful Phone Call Social History Tobacco Use Types Packs/Day [...] encounter Miscellaneous Notes * Telephone Encounter - Francois Fernandez MD - 03/01/2020 1:08 AM CST Thank you for talking to her. ICAL ASSISTANT * Telephone Encounter - Neisha Wolf MD - 02/24/2020 6:31 PM CLINICAL ASSISTANT Returned paged. She is down to 5 mg of prednisone today. She developed some shortness of breath, fatigue for the past 2 weeks (since she was on 6 mg daily) - starts getting tired at 3pm, she feels puffy not swollen like a lupus flare but puffy in head and face. She has dizziness for which she takes meclizine which was prescribed for ear infection, but now feels super dizzy all the time, not related to standing. She takes her prednisone between 8-9am. She checked her BP while we were on the phone, it was 117/77, HR 68. Reassured her. Advised to check her blood pressure daily and heart rate. Discussed signs of adrenal crisis. She would like a call from Dr. Fernandez. ICAL ASSISTANT documented in this encounter Plan of Treatment Not on file documented as of this encounter Visit Diagnoses Not on filedocumented in this encounter Care Teams Product Builder Relationship Specialty [place] [address] [address] PCP - General 07/04/19 [place] [address] [address] [facility] [place] [address] 11/16/18 documented as of this encounter
--- OUTSIDE RECORDS SUMMARY | 2024-02-24 20:11 | XMS_ITS | Encounter Summary ---
Author Organization [facility] Address [address] [place] [address] Care Team Providers Care Bakery Machine Mechanic Supervisor Name Role Phone Huseyin Dangelo MD Unavailable [phone] Brian Mon MD Primary Care Provider + Encounter Details Date Type Department Care Team (Late st Contact Info) Description 03/27/2020 Telephone [facility] Surgeon [address] [place] [address] Kristin Shaikh MD [address] [facility] [address] [place], [place] [address] Social History Tobacco Use Types Packs/Day Years [...] Miscellaneous Notes * Telephone Encounter - Kristin Shaikh MD - 03/27/2020 10:45 AM WARNING ANALYST Patient called regarding scheduling an outpatient appointment for ear tubes with Dr. Richardson. Discussed would send a message to his nurse and that she should call the clinic on Sunday to follow-up. Kristin Shaikh MD Resident Physician Otolaryngology - Head and Neck Surgery [phone] ING ANALYST documented in this encounter Plan of Treatment Not on file documented as of this encounter Visit Diagnoses Not on filedocumented in this encounter Additional Health Concerns Infection Onset Date Last Indicated Resolved Time COVID: Suspected 04/05/2020 04/05/2020 04/05/2020 10:27 PM WARNING ANALYST Respiratory Infection (BLANCA), contact + droplet Comment:Automatically added due to negative COVID-19 result. 04/05/2020 04/05/2020 04/19/2020 3:0 7 AM WARNING ANALYST documented as of this encounter Care Teams Bakery Machine Mechanic Supervisor Relationship Specialty [place] [address] [address] [address] PCP - General 07/04/19 [place] [address] [address] [address] 11/16/18 documented as of this encounter
--- OUTSIDE RECORDS SUMMARY | 2024-02-24 20:11 | XMS_ITS | Encounter Summary ---
Author Organization [facility] Address [address] [place] [address] Phone Care Team Providers Care Shuttle Preparation Supervisor Name Role Phone Huseyin Dangelo MD Unavailable [phone] Brian Mon MD Primary Care Provider + Reason for Visit * Reason Onset Date Comments Med Management 02/16/2020 Steroid taper Encounter Details Date Type Department Care Team (Late st Contact Info) Description 02/16/2020 Telephone [facility] Endocrinology Metabolism and Lipid [address] [facility] 5th [place] [address] [place] [address] Etienne Hernandez EMT Med Management (Steroid taper) Social History Tobacco Use Types Packs/Day Years [...] Telephone Encounter - Etienne Hernandez EMT - 02/16/2020 4:34 PM CST Patient down from 7 to 6mg prednisone now c/o aching, chest pain, tired. Would like to speak with provider. Scheduled zoom visit for 02/16 with provider EY ENGINEER documented in this encounter Plan of Treatment Not on file documented as of this encounter Visit Diagnoses Not on filedocumented in this encounter Care Teams Shuttle Preparation Supervisor Relationship Specialty [place] [address] [address] [address] PCP - General 07/04/19 [place] [address] [address] [address] 11/16/18 documented as of this encounter
--- OUTSIDE RECORDS SUMMARY | 2024-02-24 20:11 | XMS_ITS | Encounter Summary ---
Author Organization [facility] [employer] [facility] Address [address] [place] [address] Phone Care Team Providers Care Application Support Name Role Phone Huseyin Dangelo MD Unavailable [phone] Brian Mon MD Primary Care Provider + Encounter Details Date Type Department Care Team (Latest Contact Info) Description 03/04/2020 4:00 PM UTILITY WORKER [place] Telemedicine [facility] Endocrinology Metabolism and Lipid [address] [facility] Advanced Medicine 5th [place] [address] [place] [address] Darius Fernandez MD [address] [facility] [address] [place] [address] Adrenal insufficiency (CMS/HCC) (Primary Dx) [...] Pressure - - Pulse - - Temperature 36.6 ??C (97.8 ??F) 03/04/2020 1:00 PM CS T Respiratory Rate - - Oxygen Saturation - - Inhaled Oxygen Concentration - - Weight 74.8 kg (165 lb) 03/04/2020 1:00 PM UTILITY WORKER [place] Height 160 cm (5' 3 ) 03/04/2020 1:00 PM UTILITY WORKER [place] Body Mass Index 29.23 03/04/2020 1:00 PM UTILITY WORKER [employer] [place] documented in this encounter Progress Notes * Francois Fernandez MD - 03/04/2020 4:00 PM CST Images from the original note were not included. Endocrine Patient Visit This was a telemedicine visit with Umer anglin which took place via Telephone. During the visit, I was located at home and the patient was located at home in the [facility]. The patient visit started at 4:00 PM and ended at 4:10 My total encounter time on 03/05/2020 was 15 minutes whichwas spent in the activities documented above. This includes time spent prior to the visit and afterthe visit in direct care of the patient. This time does not include time spent in any separately reportable services. The patient has been informed that the visit may not be secure and acknowledged the information. I have explained the option of participating in a telephone or video visit during the [facility]- [facility] emergency to the patient. After being given [...] history of lupus which has required terminal manager steriod use for 2.5 years. Has required [...] other systems are negative. OBJECTIVES Physical exam: Temp 36.6 ??C (97.8 ??F) Ht 160 cm (5' 3 ) Wt 74.8 kg (165 lb) BMI 29.23 kg/m?? Past Medical History: Diagnosis Date ??? [...] 07/29/2019 ??? DILATION AND CURETTAGE OF UTERUS ??? HAND SURGERY ??? WRIST SURGERY Right 12/09/2018 rt wrist median nerve repair, allograft nerve wrap application (Not in a hospital admission) Allergies Allergen Reactions ??? Methylprednisolone Anaphylaxis and Syncope Syncope ??? Amoxicillin Rash ??? Penicillins Hives ??? Escitalopram Other (See comments) Caused seizures [...] history of lupus which has required terminal manager steriod use for 2.5 years. She is now on steroid taper. Current prednisone dose is 5 mg daily. She is ready for stimulation test Plan Will get cosyntropin stim test I have answered her questions. RTC will be determined based on test results Francois Fernandez MD Instructor in Medicine Division of Endocrinology, Metabolism and Lipid Research [facility] ITY WORKER [place] documented in this encounter Plan of Treatment Not on file documented as of this encounter Visit Diagnoses Diagnosis Adrenal insufficiency (HCC)- Primary Glucocorticoid deficiency documented in this encounter Orders Appointment Requests Count Last Ordered Date Fi rst Ordered Date INFUSION APPT REQUEST 60 MIN 1 03/18/2020 documented in this encounter Care Teams Application Support Relationship Specialty [place] [address] [address] [place] [address] PCP - General 07/04/19 [place] [address] [address] [place] [address] 11/16/18 documented as of this encounter
--- OUTSIDE RECORDS SUMMARY | 2024-02-24 20:11 | XMS_ITS | Encounter Summary ---
Author Organization [facility] [employer] [facility] Address [address] [place] [address] Phone Care Team Providers Care Anesthesiologist Physician Name Role Phone Huseyin Dangelo MD Unavailable [phone] Brian Mon MD Primary Care Provider + Reason for Visit * Episode Based Medications (Routine) - Pending Review Specialty Diagnoses / Procedures Referred By Contac t Referred To Contact Diagnoses Adrenal insufficiency (HCC) Secondary adrenal insufficiency (HCC) Procedures CHG TOTAL CORTISOL Darius Fernandez MD [address] [place] [address] Phone: tel: fax: [facility] Injection Therapy [address] [place] [address] [address] [place] [address] Phone: tel: Referral ID Status Reason Start Date Expiration Date V isits Requested Visits Authorized [id number] Pending Review 03/04/2020 02/25/2021 99 99 Encounter Details Date Type Department Care Team (Late st Contact Info) Description 03/22/2020 9:00 AM VESSEL CAPTAIN Infusion [facility] Infusion Therapy [address] [place] [address] [address] [place] [address] Adrenal insufficiency (CMS/HCC) (Primary Dx) Social History [...] Sign Reading Time Taken Comments Blood Pressure 120/62 03/22/2020 10:05 AM VESSEL CAPTAIN Pulse 84 03/22/2020 10:05 AM VESSEL CAPTAIN Temperature 36.7 ??C (98.1 ??F) 03/22/2020 8:50 AM CS T Respiratory Rate - - Oxygen Saturation - - Inhaled Oxygen Concentration - - Weight - - Height - - Body Mass Index - - documented in this encounter Progress Notes * Shelley Candelaria RN - 03/22/2020 9:00 AM CST Pt here for cosyntropin stim test. Pt confirms she did not take any p.o meds this am. Pt tolerated mike stim test well, [facility] CAPTAIN documented in this encounter Plan of Treatment Not on file documented as of this encounter Results * ACTH (03/22/2020 9:03 AM VESSEL CAPTAIN) [facility] ACTH 11 pg/mL [facility] Comment: REFERENCE VALUE 7.2-63 (a.m. collection) Test Performed by: [facility] [address] [place] [address] Ex Assistant/Program Director: Dima Travis M.D. Ph.D.; CLIA# [id number] Blood specimen (specimen) 03/22/2020 9:03 AM VESSEL CAPTAIN 03/22/2020 11:10 AM VESSEL CAPTAIN us Darius Fernandez MD LAB BLOOD ORDERABLES Final Resul t [facility] [address] [facility]. Department [place] [address] documented in this encounter Visit Diagnoses Diagnosis Adrenal insufficiency (HCC)- Primary Glucocorticoid deficiency documented in this encounter Administered Medications Inactive Administered Medications - up to 3 most recent administrations Medication Order MAR Action Action Date Dose Rate Site cosyntropin (ACTH,CORTISOL) injection 250 mcg 250 mcg, intravenous, Administer over 2 Minutes, Once, On 03/22/20 at 0915, For 1 dose, Reconstitute 250 mcg vial with 1 mL 0.9% sodium chloride and remove dose. For IV push, further dilute dose with equal volume 0.9% sodium chloride to a final concentration of 125 mcg/mLIndications:Adrenal insufficiency (HCC) Given 03/22/2020 9:03 AM VESSEL CAPTAIN 250 mcg documented in this encounter Orders Medications Ordered That Omer ht Not Have Been Administered Count Last Ordered Date First Ordered Date cosyntropin (ACTH,CORTISOL) injection 250 mcg 1 03/22/2020 Nursing Count Last Ordered Date First Orde red Date NURSING COMMUNICATION 1 03/22/2020 documented in this encounter Care Teams Anesthesiologist Physician Relationship Specialty [place] [address] [facility] [address] [place] [address] PCP - General 07/04/19 [place] [address] [address] [place] [address] 11/16/18 documented as of this encounter
--- OUTSIDE RECORDS SUMMARY | 2024-02-24 20:11 | XMS_ITS | Encounter Summary ---
Author Organization [facility] Address [address] [place] [address] Phone Care Team Providers Care Grain Weigher Name Role Phone Huseyin Dangelo MD Unavailable [phone] Brian Mon MD Primary Care Provider + Encounter Details Date Type Department Care Team (Late st Contact Info) Description 02/01/2020 Telephone [facility] Rheumatology [address] [facility] Advanced Medicine 5th [place] [address] [place] [address] Дмитрий Garcia MD [address] [place] [address] Social History Tobacco Use Types [...] Telephone Encounter - Дмитрий Garcia MD - 02/01/2020 2:27 PM CST Called patient back. She reported that she went to urgent care yesterday for rash and received steroid injection as well as benadryl. The rash has improved but she has been feeling burning sensationson her face. This is not consistent with her typical SLE flare. Informed patient that her original rash is more likely eczema vs antibiotic-related. She is off augmentin now and has received topical steroid cream. Her current burning sensation is possible due to high dose steroid that she received yesterday. IV steroid half-life 1-5 hours and should be out of her system in 24 hours. Instructed patient to resume PO prednisone at home dose tomorrow NESS TECHNOLOGY TEACHER documented in this encounter Plan of Treatment Not on file documented as of this encounter Visit Diagnoses Not on filedocumented in this encounter Additional Health Concerns Infection Onset Date Last Indicated Resolved Time COVID: Suspected 01/19/2020 01/19/2020 02/02/2020 3:06 AM BUSINESS TECHNOLOGY TEACHER documented as of this encounter Care Teams Grain Weigher Relationship Specialty [place] [address] [address] [place] [address] PCP - General 07/04/19 [place] [address] [address] [place] [address] 11/16/18 documented as of this encounter
--- OUTSIDE RECORDS SUMMARY | 2024-02-24 20:11 | XMS_ITS | Encounter Summary ---
Author Organization [facility] [employer] [facility] Address [address] [place] [address] Phone Care Team Providers Care Account Analyst Name Role Phone Huseyin Dangelo MD Unavailable [phone] Brian Mon MD Primary Care Provider + Encounter Details Date Type Department Care Team (Latest Contact Info) Description 03/18/2020 Orders Only [facility] Infusion Therapy [address] [facility] Advanced Medicine 5th [place] [address] [place] [address] Tricia Smith RN Spondyloarthritis (Primary Dx); Lupus (CMS/[facility]) Social History Tobacco Use Types Packs/Day Years [...] as of this encounter Visit Diagnoses Diagnosis Spondyloarthritis- Primary Lupus Systemic lupus erythematosus documented in this encounter Care Teams Account Analyst Relationship Specialty [place] [address] [address] [facility] [address] [place] [address] PCP - General 07/04/19 [place] [address] [address] [facility] [place] [address] 11/16/18 documented as of this encounter
--- OUTSIDE RECORDS SUMMARY | 2024-02-24 20:11 | XMS_ITS | Encounter Summary ---
Author Organization [facility] Address [address] [place] [address] Phone Care Team Providers Care Filter Bed Placer Name Role Phone Huseyin Dangelo MD Unavailable [phone] Brian Mon MD Primary Care Provider + Reason for Visit * Reason Comments Bilateral chronic serous otitis media tu be placement Encounter Details Date Type Department Care Team (Late st Contact Info) Description 03/25/2020 4:00 PM MED SPECIALIST Office Visit [facility]) - [facility] ENT [address] [facility] Medical Office Building [address] [place] [address] [place] [id number] [place] [address] [address] [place] [address] Bilateral chronic serous otitis media (Primary Dx) Social History Tobacco Use Types [...] Pressure - - Pulse - - Temperature 36.9 ??C (98.4 ??F) 03/25/2020 3:55 PM CS T Respiratory Rate - - Oxygen Saturation - - Inhaled Oxygen Concentration - - Weight - - Height - - Body Mass Index - - documented in this encounter Progress Notes * Ray Moreno MD - 03/25/2020 4:00 PM CST Images from the original note were not included. Subjective/Objective Patient ID: Carito Rausch is a 29 y.o. female. Chief Complaint Bilateral chronic serous otitis media (tube placement ) HPI Mrs. Rausch is a 29-year-old who was seen a few days ago because of a chronic secretory otitis involving both ears. She is here to have tympanostomy tubes placed in both ears. She has had an audiogramwhich showed: Review of Systems Constitutional: Negative. Respiratory: Negative. Cardiovascular: Negative. Musculoskeletal: Negative. Skin: Negative. Neurological: Negative. Physical Exam HENT: Retracted tympanic membranes Assessment/Plan Chronic secretory otitis Diagnoses and all orders for this visit: Bilateral chronic serous otitis media (H65.23) (Primary) An attempt was made to place a tympanostomy in the right ear. The tympanic membrane was anesthetized with phenol. A small incision was made and an attempt was made to place an Cook type tube. She could not tolerate having the tube placed. We did discuss injecting the ear canal with 2% xylocaine and epinephrine, she was reluctant to have that done. The tube was removed from the canal. The decision was made to refer her to otology for placement of tympanostomy tubes under general anesthesia. SPECIALIST documented in this encounter Plan of Treatment Not on file documented as of this encounter Visit Diagnoses Diagnosis Bilateral chronic serous otitis media- Primary Simple or unspecified chronic serous otitis media documented in this encounter Care Teams Filter Bed Placer Relationship Specialty [place] [id number] [address] PCP - General 07/04/19 [place] [address] [address] 11/16/18 documented as of this encounter
--- OUTSIDE RECORDS SUMMARY | 2024-02-24 20:11 | XMS_ITS | Encounter Summary ---
Author Organization [facility] Address [address] [place] [address] Care Team Providers Care Show Dog Trainer Name Role Phone Huseyin Dangelo MD Unavailable [phone] Brian Mon MD Primary Care Provider + Encounter Details Date Type Department Care Team (Latest Contact Info) Description 01/31/2020 11:28 AM MANAGER UTILIZATION REVIEW - 01/31/2020 11:59 PM MANAGER UTILIZATION REVIEW Hospital Encounter [facility] Discharge Disposition: Discharge to home or self [...] WEEK 06/21/2019 1 ferrous gluconate 324 mg (37.5 mg of elemental iron) tabletIndications:I anila deficiency Take 1 tablet (324 mg total) by mouth 3 (three) times a day 90 tablet 2 11/03/2019 0 hydrOXYchloroQUINE (PLAQUENIL) 200 mg tablet TAKE 1 TABLET BY MOUTH NIGHTLY 90 tablet 01/06/2020 1 ipratropium (ATROVENT) 0.03 % nasal spray INSTILL 1 SPRAY IN EACH NOSTRIL TWICE DAILY 01/28/2020 1 multivitamin capsule Take 1 capsule by mouth daily 1 omeprazole (PriLOSEC) 20 mg capsule Take 20 mg by mouth daily 06/21/2019 1 ondansetron (ZOFRAN) 4 mg tablet Take 1 tablet (4 mg total) by mouth every 8 (eight) hours as needed for nausea or vomiting 20 tablet 10/03/2019 1 predniSONE (DELTASONE) 1 mg tablet Take 1 mg by mouth daily 01/25/2020 0 predniSONE (DELTASONE) 10 mg tablet Take 10 mg by mouth daily 12/11/2019 1 predniSONE (DELTASONE) 5 mg tabletIndications:A drenal insufficiency (HCC) Take 1 tablet (5 mg) by mouth daily 90 tablet 3 11/11/2019 1 predniSONE (DELTASONE) 5 mg tablet Take 5 mg by mouth 11/11/2019 1 triamcinolone (KENALOG) 0.1 % cream Apply [...] COVID: Suspected 01/19/2020 01/19/2020 02/02/2020 3:06 AM MANAGER UTILIZATION REVIEW documented as of this encounter Care Teams Show Dog Trainer Relationship Specialty [place] [address] [address] [address] PCP - General 07/04/19 [place] [address] [address] [place] [place] [address] 11/16/18 documented as of this encounter
--- OUTSIDE RECORDS SUMMARY | 2024-02-24 20:11 | XMS_ITS | Encounter Summary ---
Author Organization [facility] Address [address] [place] [address] Phone Care Team Providers Care Crewman Main Battle Tank Name Role Phone Huseyin Dangelo MD Unavailable [phone] Brian Mon MD Primary Care Provider + Encounter Details Date Type Department Care Team (Late st Contact Info) Description 02/12/2020 Telephone [facility] Endocrinology Metabolism and Lipid [address] [facility] 5th [place] [address] [place] [address] Neisha Wolf MD [address] [facility] [address] [place] [address] Social History Tobacco Use Types [...] Miscellaneous Notes * Telephone Encounter - Neisha Wolf MD - 02/12/2020 5:34 PM STEAM CRANE OPERATOR She has secondary adrenal insufficiency and she is cutting down her prednisone dose, she was prev on 10 mg and is now on 7 mg this week. She is feeling well on the current dose. She is curious what the lowest she should go. I advised her that she should not go lower than 5 mg without speaking with Dr[address] Fernandez. She has questions about further testing and trying to come off of steroids, I let her know these will questions be addressed by Dr. Fernandez. M CRANE OPERATOR documented in this encounter Plan of Treatment Not on file documented as of this encounter Visit Diagnoses Not on filedocumented in this encounter Care Teams Crewman Main Battle Tank Relationship Specialty [place] [address] [facility] [address] [place] [address] PCP - General 07/04/19 [place] [address] [facility] [address] [place] [address] 11/16/18 documented as of this encounter
--- OUTSIDE RECORDS SUMMARY | 2024-02-24 20:11 | XMS_ITS | Encounter Summary ---
Author Organization [facility] Address [address] [place] [address] Phone Care Team Providers Care Cotton Ginner Name Role Phone Huseyin Dangelo MD Unavailable [phone] Brian Mon MD Primary Care Provider + Encounter Details Date Type Department Care Team (Late st Contact Info) Description 03/16/2020 Telephone [facility] Infusion Therapy [address] [facility] Medical Office Building [address] [place] [address] Shelley Candelaria, PRO Social History Tobacco Use Types Packs/Day [...] Miscellaneous Notes * Telephone Encounter - Shelley Candelaria RN - 03/16/2020 2:38 PM CST Precert sent a message stating patient's insurance was not active and she would need to be rescheduled this week. I called patient and left that message. INSPECTOR documented in this encounter Plan of Treatment Not on file documented as of this encounter Visit Diagnoses Not on filedocumented in this encounter Care Teams Cotton Ginner Relationship Specialty [place] [address] [address] [address] PCP - General 07/04/19 [place] [address] [address] [address] 11/16/18 documented as of this encounter
--- OUTSIDE RECORDS SUMMARY | 2024-02-24 20:11 | XMS_ITS | Encounter Summary ---
Author Organization [facility] Address [address] [place] [address] Phone Care Team Providers Care Radiation Engineer Name Role Phone Huseyin Dangelo MD Unavailable [phone] Brian Mon MD Primary Care Provider + Encounter Details Date Type Department Care Team (Late st Contact Info) Description 02/17/2020 Telephone [facility] Endocrinology Metabolism and Lipid [address] [facility] 5th [place] [address] [place] [address] Shannon Hall CMA Social History Tobacco Use Types Packs/Day [...] encounter Miscellaneous Notes * Telephone Encounter - Shannon Hall - 02/17/2020 1:25 PM CST Called pt to be checked in for appointment with Dr. Fernandez. Left a message to call back OPERATOR documented in this encounter Plan of Treatment Not on file documented as of this encounter Visit Diagnoses Not on filedocumented in this encounter Care Teams Radiation Engineer Relationship Specialty [place] [address] [address] [address] PCP - General 07/04/19 [place] [address] [address] [address] 11/16/18 documented as of this encounter
--- OUTSIDE RECORDS SUMMARY | 2024-02-24 20:11 | XMS_ITS | Encounter Summary ---
Author Organization [facility] Address [address] [place] [address] Phone Care Team Providers Care Gizzard Puller Name Role Phone Huseyin Dangelo MD Unavailable [phone] Brian Mon MD Primary Care Provider + Encounter Details Date Type Department Care Team (Late st Contact Info) Description 03/23/2020 Orders Only [facility] Endocrinology Metabolism and Lipid [address] [facility] 5th [place] [address] [place] [address] Etienne Hernandez, FLAVIA Adrenal insufficiency (CMS/HCC) Social History Tobacco Use [...] by mouth daily 90 tablet 1 03/23/2020 documented in this encounter Plan of Treatment Not on file documented as of this encounter Visit Diagnoses Diagnosis Adrenal insufficiency (HCC) Glucocorticoid deficiency documented in this encounter Discontinued Medications Medication Sig Discontinue Reason Start Date End Da te predniSONE (DELTASONE) 5 mg tabletIndications:Adrenal insufficiency (HCC) Take 1 tablet (5 mg) by mouth daily Reorder 11/11/2019 03/23/2020 documented as of this encounter Care Teams Gizzard Puller Relationship Specialty [place] [address] [address] [address] PCP - General 07/04/19 [place] [address] [address] [address] 11/16/18 documented as of this encounter
--- OUTSIDE RECORDS SUMMARY | 2024-02-24 20:11 | XMS_ITS | Encounter Summary ---
Author Organization [facility] Address [address] [place] [address] Phone Care Team Providers Care Environment Coordinator Name Role Phone Huseyin Dangelo MD Unavailable [phone] Brian Mon MD Primary Care Provider + Encounter Details Date Type Department Care Team (Late st Contact Info) Description 01/26/2020 1:35 PM RECEPTION AGENT Lab [facility] Oncology [address] [place] [address] Carolina Delarosa MD [address] [place] [address] Lupus ([facility]/HCC) Discharge Disposition: Discharge to home or self [...] PROTEIN / CREATININE RATIO, URINE, RANDOM Routine 01/27/2020 1:34 PM RECEPTION AGENT Lupus (CMS/HCC) ANTI-DOUBLE STRANDED DNA ANTIBODIES Routine 01/26/2020 1:46 PM RECEPTION AGENT Lupus (CMS/HCC) EGFR Routine 01/26/2020 1:46 PM RECEPTION AGENT Lupus (CMS/HCC) DIFFERENTIAL AUTO Routine 01/26/2020 1:4 6 PM RECEPTION AGENT Lupus (CMS/HCC) C4 COMPLEMENT Routine 01/26/2020 1:46 PM RECEPTION AGENT Lupus (CMS/HCC) CBC WITH AUTO DIFFERENTIAL Routine 01/26/2020 1:46 PM RECEPTION AGENT Lupus (CMS/HCC) VITAMIN D 25 HYDROXY Routine 01/26/2020 1:46 PM RECEPTION AGENT Lupus (CMS/HCC) ERYTHROCYTE SEDIMENTATION RATE Routine 01/26/2020 1:46 PM RECEPTION AGENT Lupus (CMS/HCC) C3 COMPLEMENT Routine 01/26/2020 1:46 PM RECEPTION AGENT Lupus (CMS/HCC) CRP (ACUTE PHASE) Routine 01/26/2020 1:4 6 PM RECEPTION AGENT Lupus (CMS/HCC) COMPREHENSIVE METABOLIC PANEL Routine 01/26/2020 1:46 PM RECEPTION AGENT Lupus (CMS/HCC) URINALYSIS AND REFLEX TO MICROSCOPIC AND CULTURE Routine 01/26/2020 1:43 PM RECEPTION AGENT Lupus (CMS/HCC) URINALYSIS, MICROSCOPIC ONLY Routine 01/26/2020 1:43 PM RECEPTION AGENT Lupus (CMS/HCC) documented in this encounter Results * (ABNORMAL) Protein / creatinine ratio, urine, random (01/27/2020 1:34 PM RECEPTION AGENT) [facility] Protein, ur, quant 40.2 mg/dL ARPITA ROSADO Comment: Interpretive Data No reference range established. Current interpretive data was last revised 2018. Testing performed by: [facility], [address] [place] [address]., [address] Creatinine Ur 80.9 mg/dL ARPITA ROSADO Comment: Interpretive Data No reference range established. Current interpretive data was last revised 2018. Testing performed by: [facility], [address] [place] [address]., [address] Protein/creatinin e ratio 496.9(H) 0.0 - 180.0 mg/g CR ARPITA ROSADO Comment:Testing performed by : [facility], [address] [place] [address]., [address] Urine 01/27/2020 1:34 PM RECEPTION AGENT 01/27/2020 9:52 PM RECEPTION AGENT us Carolina Delarosa MD LAB URINE ORDERABLES Final Result [facility] [address] [facility]. [place] [address] * eGFR (01/26/2020 1:46 PM RECEPTION AGENT) [facility] eGFR >90 mL/min/1.7 3 m2 ARPITA ROSADO Comment: Interpretive Data Reference Interval Normal ?>/= 90 mL/min/1.73m2 Mildly decreased* ? 60 - 89 mL/min/1.73m2 Mildly to moderately decreased ?45 - 59 mL/min/1.73m2 Moderately to severely decreased ??30 - 44 mL/min/1.73m2 Severely decreased ?15 - 29 mL/min/1.73m2 Kidney Failure ?< 15 ??mL/min/1.73m2 *Relative to young adult level If -Cambodian multiply value by 1.16. Estimated glomerular filtration rate is determined by [...] 70. Current interpretive data was last reviewed 2015. Blood specimen (specimen) 01/26/2020 1:46 PM RECEPTION AGENT 01/26/2020 2:23 PM RECEPTION AGENT us Carolina Delarosa MD LAB BLOOD ORDERABLES Final Result [facility] [address] [facility]. [place] [address] * (ABNORMAL) Differential, auto (01/26/2020 1:46 PM RECEPTION AGENT) Neutrophil abs 10.0(H) 1.7 - 6.5 K/cumm [facility] Imm gran abs 0.0 0.0 - 0.1 K/cumm [facility] Lymphocyte abs 0.6(L) 0.8 - 3.3 K/cumm [facility] Monocyte abs 0.2 0.2 - 0.8 K/cumm [facility] Eosinophil abs 0.0 0.0 - 0.5 K/cumm [facility] Basophil abs 0.0 0.0 - 0.1 K/cumm [facility] Neutrophil pct 91.8 % [facility] Comment: Interpretive Data Percent cell count reference ranges are not reported, since discordance with absolute values may lead to misinterpretation of CBC data. Current Interpretive Data was last revised on 2017. Imm gran pct 0.4 % [facility] Comment: Interpretive Data Percent cell count reference ranges are not reported, since discordance with absolute values may lead to misinterpretation of CBC data. Current Interpretive Data was last revised on 2017. Lymphocyte pct 5.5 % [facility] Comment: Interpretive Data Percent cell count reference ranges are not reported, since discordance with absolute values may lead to misinterpretation of CBC data. Current Interpretive Data was last revised on 2017. Monocyte pct 1.9 % ARPITA ROSADO Comment: Interpretive Data Percent cell count reference ranges are not reported, since discordance with absolute values may lead to misinterpretation of CBC data. Current Interpretive Data was last revised on 2017. Eosinophil pct 0.1 % ARPITA ROSADO Comment: Interpretive Data Percent cell count reference ranges are not reported, since discordance with absolute values may lead to misinterpretation of CBC data. Current Interpretive Data was last revised on 2017. Basophil pct 0.3 % ARPITA ROSADO Comment: Interpretive Data Percent cell count reference ranges are not reported, since discordance with absolute values may lead to misinterpretation of CBC data. Current Interpretive Data was last revised on 2017. Blood specimen (specimen) 01/26/2020 1:46 PM RECEPTION AGENT 01/26/2020 1:46 PM RECEPTION AGENT Carolina Delarosa MD LAB BLOOD ORDERABLES Final Result Performing Organization Address City/[facility]/ZIP Co de Phone Number [facility] [address] [email or web address] [address] * C4 complement (01/26/2020 1:46 PM RECEPTION AGENT) Complement C4 19 10 - 40 mg/dL ARPITA ROSADO Comment:Testing performed by : [facility], [address] [place] [address]., [address] Blood specimen (specimen) 01/26/2020 1:46 PM RECEPTION AGENT 01/26/2020 4:55 PM RECEPTION AGENT Carolina Delarosa MD LAB BLOOD ORDERABLES Final Result Performing Organization Address City/[facility]/ZIP Co de Phone Number [facility] [address] [email or web address] [facility] [place], [place] [id number] * (ABNORMAL) Vitamin D 25 hydroxy (01/26/2020 1:46 PM RECEPTION AGENT) Vitamin D 25-OH 25(L) 30 - 80 ng/mL ARPITA BARNES Comment:Testing performed by : [facility], [address] [place]., [address] Blood specimen (specimen) 01/26/2020 1:46 PM RECEPTION AGENT 01/26/2020 4:49 PM RECEPTION AGENT Carolina Delarosa MD LAB BLOOD ORDERABLES Final Result Performing Organization Address [facility]/ZIP Co de Phone Number [facility] [address] [place] [address] * (ABNORMAL) CBC with auto differential (01/26/2020 1:46 PM RECEPTION AGENT) Pathologist [facility] WBC 10.9(H) 3.8 - 9.9 K/cumm [facility] Hgb 13.6 11.9 - 15.5 g/dL [facility] Hct 41.3 35.6 - 45.5 % [facility] Plt 313 150 - 400 K/cumm [facility] MPV 9.3 9.1 - 12.3 fL [facility] RBC 4.53 3.90 - 5.20 M/cumm [facility] MCV 91 81 - 96 fL [facility] MCH 30.0 27.1 - 33.3 pg [facility] MCHC 32.9 32.3 - 35.7 g/dL [facility] RDW CV 13.5 11.1 - 14.9 % [facility] R[facility] SD 44.9 35.7 - 48.1 fL [facility] Blood specimen (specimen) 01/26/2020 1:46 PM RECEPTION AGENT 01/26/2020 1:46 PM RECEPTION AGENT Carolina Delarosa MD LAB BLOOD ORDERABLES Final Result Performing Organization Address City/[facility]/ZIP Co de Phone Number [facility] [address] [place] [address] * C3 complement (01/26/2020 1:46 PM RECEPTION AGENT) Pathologist [facility] Complement C3 139 90 - 180 mg/dL ARPITA BARNES Comment:Testing performed by : [facility], [facility] [facility], [place]., [address] Blood specimen (specimen) 01/26/2020 1:46 PM RECEPTION AGENT 01/26/2020 4:55 PM RECEPTION AGENT Carolina Delarosa MD LAB BLOOD ORDERABLES Final Result [facility] [address] [facility] [place] [place] [address] * CRP (acute phase) (01/26/2020 1:46 PM RECEPTION AGENT) Pathologist [facility] CRP 9.2 <=10.0 mg/L ARPITA BARNES Blood specimen (specimen) 01/26/2020 1:46 PM RECEPTION AGENT 01/26/2020 2:23 PM RECEPTION AGENT Carolina Delarosa MD LAB BLOOD ORDERABLES Final Result Performing Organization Address City/[facility]/ZIP Co de Phone Number [facility] [address] [facility] [place] [place] [address] * Erythrocyte sedimentation rate (01/26/2020 1:46 PM RECEPTION AGENT) Pathologist [facility] Erythrocyte sedimentation rate 12 1 - 20 mm/hr [facility]PITA BARNES Blood specimen (specimen) 01/26/2020 1:46 PM RECEPTION AGENT 01/26/2020 6:16 PM RECEPTION AGENT Carolina Delarosa MD LAB BLOOD ORDERABLES Final Result Performing Organization Address City/[facility]/ZIP Co de Phone Number [facility] [address] [facility] [place] [place] [address] * Comprehensive metabolic panel (01/26/2020 1:46 PM RECEPTION AGENT) Pathologist [facility] Sodium 139 135 - 145 mmol/L [facility] Potassium, pl 4.2 3.3 - 4.9 mmol/L [facility] Chloride 102 97 - 110 mmol/L [facility] CO2 24 22 - 32 mmol/L [facility] Anion gap 13 2 - 15 mmol/L [facility] BUN 14 8 - 25 mg/dL [facility] Creatinine 0.61 0.60 - 1.10 mg/dL [facility] Glucose 110 70 - 199 mg/dL [facility] Comment: Interpretive Data Fasting glucose >/= 126 [...] Calcium 9.8 8.5 - 10.3 mg/dL [facility] Bilirubin, total 0.4 0.1 - 1.2 mg/dL [facility] Protein, pl 7.5 6.5 - 8.5 g/dL [facility] Albumin 4.5 3.5 - 5.0 g/dL [facility] Alk phos 59 40 - 130 Units/L [facility] ALT 15 7 - 45 Units/L [facility] AST 23 10 - 45 Units/L [facility] Blood specimen (specimen) 01/26/2020 1:46 PM RECEPTION AGENT 01/26/2020 2:23 PM RECEPTION AGENT Carolina Delarosa MD LAB BLOOD ORDERABLES Final Result [facility] [address] [facility]. [place] [address] * (ABNORMAL) Anti-double stranded DNA antibodies (01/26/2020 1:46 PM RECEPTION AGENT) dsDNA Ab 14.0(H) <=4.0 IUnits/mL [facility] Comment: Interpretive Data Negative: < or = 4 IUnits/mL Indeterminate: 5 - 9 IUnits/mL Positive: > or = 10 IUnits/mL Current interpretive data was last revised on 2016. Testing performed by: [facility], [address] [place]., [address] Blood specimen (specimen) 01/26/2020 1:46 PM RECEPTION AGENT 01/26/2020 4:49 PM RECEPTION AGENT Carolina Delarosa MD LAB BLOOD ORDERABLES Final Result Performing Organization Address [facility] Co de Phone Number [facility] [address] [email or web address] [place], [place] [id number] * (ABNORMAL) Urinalysis, microscopic only (01/26/2020 1:43 PM RECEPTION AGENT) WBC, ur 0-5 0 - 5 /HPF [facility] RBC, ur 0-2 0 - 2 /HPF [facility] Epithelial cells, squamous, ur 11-20(A) 0 - 5 /HPF [facility] Comment:Suggestive of contam ination. Consider recollection by clean catch. Bacteria, ur Trace(A) [facility] Mucous, ur Present(A) [facility] Culture Reflex Comment Reflex conditions for urine culture (WBC >10) not met. [facility] Urine 01/26/2020 1:43 PM RECEPTION AGENT 01/26/2020 2:24 PM RECEPTION AGENT Narrative [facility] - 01/26/2020 3:27 PM RECEPTION AGENT UA Micro Reflexed Carolina Delarosa MD LAB URINE ORDERABLES Final Result Performing Organization Address [facility] Co de Phone Number [facility] [address] [email or web address] [employer] [place], [place] [id number] * (ABNORMAL) Urinalysis reflex to microscopic and culture Urine (01/26/2020 1:43 PM RECEPTION AGENT) Color, ur Straw Yellow [facility] Clarity, ur Clear Clear [facility] Specific gravity, ur 1.019 1.010 - 1.025 [facility] pH, urine 7.0 [facility] Protein, ur ql 1+(A) Negative [facility] Glucose, ur ql Negative Negative [facility] Ketones, ur Negative Negative [facility] Bilirubin, ur Negative Negative [facility] Blood, ur Negative Negative [facility] Urobilinogen, ur <2.0 <2.0 mg/dL [facility] Nitrite, ur Negative Negative [facility] Leukocyte esterase, ur Negative Negative [facility] UA reflex comment Reflex to microscopic UA will be performed. [facility] Urine 01/26/2020 1:43 PM RECEPTION AGENT 01/26/2020 2:24 PM RECEPTION AGENT Narrative [facility] - 01/26/2020 2:54 PM RECEPTION AGENT ?? Urine pH is affected by diet, medications, systemic acid-base disturbances, and renal tubular function. ??pH may affect urinary stone formation. ??For example, urine pH below 6.0 may help reduce the tendency for calcium phosphate stones and pH greater than 6.0 may reduce the tendency for uric acid stone formation. Source: [employer]. Last revised 03-08-2017 Carolina Delarosa MD LAB MICROBIOLOGY - GENERAL ORDERABLES Final Result Performing Organization Address City/State/[facility] Co ca Phone Number [facility] [address] [facility] [place] [address] documented in this encounter Visit Diagnoses Diagnosis Lupus Systemic lupus erythematosus documented in this encounter Additional Health Concerns Infection Onset Date Last Indicated Resolved Time COVID: Suspected 01/19/2020 01/19/2020 02/02/2020 3:06 AM RECEPTION AGENT documented as of this encounter Care Teams Environment Coordinator Relationship Specialty [place] [address] [facility] [address] [place] [address] PCP - General 07/04/19 [place] [id number] [address] 11/16/18 documented as of this encounter
--- OUTSIDE RECORDS SUMMARY | 2024-02-24 20:11 | XMS_ITS | Encounter Summary ---
Author Organization [facility] Address [address] [place] [address] Phone Care Team Providers Care Steel Fabricating Supervisor Name Role Phone Huseyin Dangelo MD Unavailable [phone] Brian Mon MD Primary Care Provider + Reason for Referral * Diagnostic Imaging (Routine) - Closed Specialty Diagnoses / Procedures Referred By Contac t Referred To Contact Diagnoses Bilateral chronic serous otitis media Procedures CT Orbits Sella PF Ear WO Contrast Niurka Richardson MD [address] [place] [address] Phone: tel: fax: External Order Referral ID Status Reason Start Date Expiration Date Visits Re quested Visits Authorized [id number] Closed 04/01/2020 05/16/2020 1 1 STILE COLLECTOR * Consultation (Routine) - Closed Specialty Diagnoses / Procedures Referred By Contac t Referred To Contact Audiology Diagnoses Bilateral chronic serous otitis media Niurka Richardson MD [address] [place] [address] Phone: tel: fax: [facility] (All Locations) Referral ID Status Reason Start Date Expiration Date V isits Requested Visits Authorized [id number] Closed Specialty Services Required 03/31/2020 04/30/2021 3 3 Question Answer Please select the performing region: [facility] (All Locations) [[id number]] # of visits: 1 STILE COLLECTOR Reason for Visit * Reason Comments Otitis Media Encounter Details Date Type Department Care Team (Late st Contact Info) Description 03/31/2020 11:00 AM TURNSTILE COLLECTOR Office Visit [facility]) - [facility] ENT [address] [facility] [address] [place] [address] Niurka Richardson MD [address] [place] [address] Bilateral chronic serous otitis media (Primary Dx) [...] as of this encounter Progress Notes * Niurka Richardson MD - 03/31/2020 11:00 AM CST Referring Provider: Brian Mon MD Primary Care Physician: Brian Mon MD Chief Complaint: Chief Complaint Patient presents with ??? Otitis Media HPI: This is a 29 y.o. female who presents today for evaluation of hearing loss and feeling like her ear is under water. Symptoms started 2.5 months ago. She is on 10mg of prednisone daily for lupus.She is allergic to methyprednisolone. She has been on a variety of nasal sprays. She has also been on a variety of oral antibiotics. She has been to the emergency room for this. She also notes symptoms of vertigo. She was prescribed Meclizine for this three times a day. She denies any otologic problems prior to this. [place] She reports as a child she did have otologic infections. She had a recent attempted tympanostomy tube placement. Relevant co-morbidities include lupus, anxiety, and headaches. Past Medical/Surgical History Past Medical History: Diagnosis Date ??? Anemia [...] nerve repair, allograft nerve wrap application Past Family/Social History Family History Problem Relation Age of Onset ??? Gout Mother ??? Diabetes Mother ??? Hypertension Mother ??? Heart disease Father ??? Stroke Father ??? Colon cancer Other Social History Socioeconomic History ??? Marital status: Spouse name: Not on file ??? Number of children: Not on file ??? Years of education: Not on file ??? Highest education level: Not on file Occupational History ??? 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 Financial resource strain: Not on file ??? Food insecurity Worry: Not on file Inability: Not on file ??? Transportation needs Medical: Not on file Non-medical: Not on file Tobacco Use ??? Smoking status: Former Smoker Quit date: 12/28/2018 Years since quittin.2 ??? Smokeless tobacco: Never Used Substance and Sexual Activity ??? Alcohol use: Yes Comment: occasionally ??? Drug use: Yes Types: Marijuana Comment: smoked last night ??? Sexual activity: Defer Lifestyle ??? Physical activity Days per week: [...] Social History Narrative ??? Not on file Medications/Allergies/Immunizations Current Outpatient Medications Medication Sig Dispense Refill ??? ALPRAZolam (XANAX) 0.25 mg tablet Take 0.25 mg by mouth 3 (three) times a day as needed ??? belimumab (Benlysta) auto-injector Inject 1 mL (200 mg total) under the skin every 7 days 4 Syringe 3 ??? diclofenac sodium (VOLTAREN) 1 % gel APPLY 2 GRAMS TOPICALLY TO ARTHRITIS JOINTS 3 TIMES A DAY NEEDED ??? ergocalciferol (VITAMIN D) 50,000 unit capsule TAKE 1 CAPSULE BY MOUTH ONE TIME PER WEEK ??? ferrous gluconate 324 mg (38 mg of elemental iron) tablet TAKE 1 TABLET BY MOUTH THREE TIMES A DAY 90 tablet 2 ??? hydrOXYchloroQUINE (PLAQUENIL) 200 mg tablet TAKE 1 TABLET BY MOUTH NIGHTLY 90 tablet 0 ??? ipratropium (ATROVENT) 0.03 % nasal spray INSTILL 1 SPRAY IN EACH NOSTRIL TWICE DAILY ??? meclizine (ANTIVERT) 25 mg tablet Take 1 tablet (25 mg total) by mouth 3 (three) times a day asneeded for dizziness 30 tablet 0 ??? multivitamin capsule Take 1 capsule by mouth daily ??? omeprazole (PriLOSEC) 20 mg capsule Take 20 mg by mouth daily ??? ondansetron (ZOFRAN) 4 mg tablet Take 1 tablet (4 mg total) by mouth every 8 (eight) hours as needed for nausea or vomiting 20 tablet 0 ??? predniSONE (DELTASONE) 1 mg tablet Take 1 mg by mouth daily ??? predniSONE (DELTASONE) 10 mg tablet Take 10 mg by mouth daily ??? predniSONE (DELTASONE) 5 mg tablet Take 1 tablet (5 mg) by mouth daily 90 tablet 1 ??? propranoloL (INDERAL) 10 mg tablet Take 10 mg by mouth 3 (three) times a day ??? triamcinolone (KENALOG) 0.1 % cream Apply topically 2 (two) times a day 30 g 0 ??? valACYclovir (VALTREX) 500 mg tablet TAKE 1 TAB BY MOUTH 3 TIMES DAILY FOR 7 DAYS. ??? Ventolin HFA 90 mcg/actuation inhaler INHALE TWO PUFFS BY MOUTH EVERY FOUR HOURS NEEDED FOR WHEEZING/COUGH No current facility-administered medications for this visit. Allergies: Methylprednisolone, Amoxicillin, Penicillins, Aripiprazole, Escitalopram, and Venlafaxine, Immunizations: There is no immunization history on file for this patient. Review of Systems Review of Systems: Pertinent positives in HPI. Intake sheet reviewed covering a full 10-systems review of systems. Physical Exam Vital Signs: There were no vitals taken for this visit. GENERAL: Pleasant female, sitting up in NAD, normal appearance and voice. RESPIRATION: Breathing comfortably, no stridor. CV: No clubbing/cyanosis/edema in hands, RRR. HEAD AND FACE: General Inspection reveals no lesions or masses. HEENT: EARS:Examination of the external ears was normal using visual inspection. Otoscopic and/or microscope reveals: Right External auditory canal: normal Tympanic Membrane: normal Middle ear: normal Left: External auditory canal: normal Tympanic Membrane: normal Middle ear: normal EYES: EOM Intact, sclera anicteric, no conjunctival injection. NOSE: External inspection of nose reveals no lesions, no masses. Inspection of nasal mucosa, septum, and turbinates is normal to anterior rhinoscopy. ORAL CAVITY/OROPHARYNX: Lips and gums are normal. Oropharynx, including the mucosa of oral cavity, hard and soft palates, tongue, and posterior pharyngeal wall showed normal symmetry without lesion and normal hydration of mucosal surfaces. NECK: Normal symmetry and overall appearance as well as tracheal position; no masses. Thyroid gland shows no tenderness or masses. NEURO: A&Ox3, Cranial nerves 2-12 intact and symmetric. Normal affect. GAIT: Normal. Diagnostic/Laboratory/Imaging Studies Reviewed: Audiometric evaluation reviewed and consistent with mild conductive hearing loss. Prior MRI reviewed and otherwise unremarkable. ASSESSMENT/PLAN 29-year-old female presents to clinic for evaluation of mild bilateral conductive hearing loss without evidence of middle ear pathology on examination. Some of her symptoms are associated with systemic symptoms including fatigue and thus will obtain laboratory studies in the form of CBC, CMP, and vitamin-D level. I would also like to obtain a CT temporal bone to rule out mastoid pathology and superior semicircular canal dehiscence given the mild conductive hearing loss and otherwise unremarkable middle ear examination. I will plan on calling her back with the results of this evaluation. Addendum 05/04/2020: I reviewed the CT with the patient which was unremarkable. Her symptoms improvedwith coming off of Meclizine and observation. I do not see a role for tympanostomy tube placement and the patient agrees. I will see her as needed. She will continue follow-up with her neurologist with regard to seizure history and continued optimization of migraines. Niurka Richardson M.D. Manager Credit Risk Director, [facility] Otology and Neurotology Department of Otolaryngology [facility] [email or web address] Office: Clinic: This note was created in part with the assistance of [employer] voice recognition software. Pipe Fittings Molder variances may occur. STILE COLLECTOR STILE COLLECTOR documented in this encounter Plan of Treatment Scheduled Referrals Name Type Priority Associated Diagnoses Order Schedule Ambulatory referral to Audiology (ADULT) Outpatient Referral Routine Bilateral chronic serous otitis media Expected: 03/31/2020 (Approximate), Expires: 03/31/2021 documented as of this encounter Results * CT Orbits Sella PF Ear WO Contrast (04/09/2020 10:17 AM TURNSTILE COLLECTOR) Anatomical Region Laterality Modality Head and Neck N/A Computed Tomogra phy 04/09/2020 10:5 4 AM TURNSTILE COLLECTOR Impressions 04/09/2020 10:57 AM TURNSTILE COLLECTOR NO ACTIVE EVIDENCE OF OTITIS MEDIA. THERE IS THICKENING OF THE TYMPANIC MEMBRANE AND RETRACTION BILATERALLY. NO OTHER SIGNIFICANT FINDINGS Electronically signed by: Abiel Pastrana M.D. Narrative 04/09/2020 10:57 AM TURNSTILE COLLECTOR EXAMINATION: CT ORBITS SELLA PF EAR WO [...] MD IMG CT PROCEDURES Final Resul t * CBC with auto differential (03/31/2020 12:42 PM TURNSTILE COLLECTOR) WBC 8.6 3.8 - 9.9 K/cumm [facility] [...] 0.00 - 0.01 K/cumm [facility] Blood specimen (specimen) 03/31/2020 12:42 PM TURNSTILE COLLECTOR 03/31/2020 4:53 PM TURNSTILE COLLECTOR Niurka Richardson MD LAB BLOOD ORDERABLES Final Re sult [facility] [address] [address] Department [place] [address] * (ABNORMAL) Comprehensive metabolic panel (03/31/2020 12:42 PM TURNSTILE COLLECTOR) Sodium 139 135 - 145 mmol/L [facility] Potassium, pl 4.4 3.3 - 4.9 mmol/L [facility] Chloride 105 97 - 110 mmol/L [facility] CO2 24 22 - 32 mmol/L [facility] Anion gap 10 2 - 15 mmol/L [facility] BUN 9 8 - 25 mg/dL [facility] Creatinine 0.56(L) 0.60 - 1.10 mg/dL [facility] Glucose 101 70 - 199 mg/dL [facility] Comment: [...] CH Blood specimen (specimen) 03/31/2020 12:42 PM TURNSTILE COLLECTOR 03/31/2020 4:53 PM TURNSTILE COLLECTOR Niurka Richardson MD LAB BLOOD ORDERABLES Final Re sult [facility] [address] [address] Department [place] [address] * (ABNORMAL) Vitamin D 25 hydroxy (03/31/2020 12:42 PM TURNSTILE COLLECTOR) Vitamin D 25-OH 22(L) 30 - 80 ng/mL [facility] Blood specimen (specimen) 03/31/2020 12:42 PM TURNSTILE COLLECTOR 03/31/2020 4:53 PM TURNSTILE COLLECTOR Niurka Richardson MD LAB BLOOD [place] [address] [address] Department [place] [address] documented in this encounter Visit Diagnoses Diagnosis Bilateral chronic serous otitis media- Primary Simple or unspecified chronic serous otitis media Bilateral chronic serous otitis media Simple or unspecified chronic serous otitis media documented in this encounter Historical Medications * This list may reflect changes made after this encounter. predniSONE (DELTASONE) 1 mg tablet Take 1 mg by mouth daily 03/24/2020 05/31/2020 propranoloL (INDERAL) 10 mg tablet Take 10 mg by mouth 3 (three) times a day 03/26/2020 07/15/2020 added in this encounter Additional Health Concerns Infection Onset Date Last Indicated Resolved Time COVID: Suspected 04/05/2020 04/05/2020 04/05/2020 10:27 PM TURNSTILE COLLECTOR Respiratory Infection (BLANCA), contact + droplet Comment:Automatically added due to negative COVID-19 result. 04/05/2020 04/05/2020 04/19/2020 3:0 7 AM TURNSTILE COLLECTOR documented as of this encounter Care Teams Steel Fabricating Supervisor Relationship Specialty [place] [address] [address] [address] PCP - General 07/04/19 [place] [address] [address] [address] 11/16/18 documented as of this encounter
--- OUTSIDE RECORDS SUMMARY | 2024-02-24 20:11 | XMS_ITS | Encounter Summary ---
Author Organization [facility] [employer] [facility] Address [address] [place] [address] Phone Care Team Providers Care Station Air Traffic Control Specialist Name Role Phone Huseyin Dangelo MD Unavailable [phone] Brian Mon MD Primary Care Provider + Reason for Visit * Episode Based Medications (Routine) - Closed Specialty Diagnoses / Procedures Referred By Contac t Referred To Contact Diagnoses Lupus Procedures [place] BELIMUMAB INJECTION Carolina Delarosa MD [address] [place] [address] Phone: tel: fax: [facility] Infusion Therapy [address] [place] [address] [address] [place] [address] Phone: tel: Referral ID Status Reason Start Date Expiration Date Visits Re quested Visits Authorized [id number] Closed 09/18/2019 09/16/2020 15 15 Encounter Details Date Type Department Care Team (Late st Contact Info) Description 02/11/2020 11:30 AM SIGN ERECTOR Infusion [facility] Infusion Therapy [address] [place] [address] [address] [place] [address] Lupus (CMS/HCC) (Primary Dx) Social [...] Sign Reading Time Taken Comments Blood Pressure 104/71 02/11/2020 1:00 PM SIGN ERECTOR Pulse 69 02/11/2020 1:00 PM SIGN ERECTOR Temperature 37.1 ??C (98.7 ??F) 02/11/2020 11:[address] Respiratory Rate - - Oxygen Saturation - - Inhaled Oxygen Concentration - - Weight - - Height - - Body Mass Index - - documented in this encounter Progress Notes * Shelley Candelaria, PRO - 02/11/2020 11:30 AM CST Pt here for Benlysta infusion, afebrile. PIV placed and infusion initiated. Pt tolerated infusion well, ambulatory upon discharge. ERECTOR documented in this encounter Plan of Treatment Not on file documented as of this encounter Visit Diagnoses Diagnosis Lupus- Primary Systemic lupus erythematosus documented in this encounter Administered Medications Inactive Administered Medications - up to 3 most recent administrations Medication Order MAR Action Action Date Dose Rate Site acetaminophen (TYLENOL) tablet 650 mg 650 mg, oral, Once, On Sun02/11/20 at 1130, For 1 dose, Give 30 minutes prior to infusion for infusion reaction prophylaxis.Indications:Lupus Given 02/11/2020 11:20 AM SIGN ERECTOR 650 mg beliMUMAB (BENLYSTA) 720 mg in sodium chloride 0.9% 250 mL IVPB 720 mg, intravenous, at 250 mL/hr, Administer over 60 Minutes, Once, On Sun02/11/20 at 1200, For 1 dose, Maintenance Dose Please use non-filter tubing. Protect from light, Indications: Systemic Lupus ErythematosusIndications:Syste marie Lupus Erythematosus New Bag 02/11/2020 12:00 PM SIGN ERECTOR 720 mg 250 mL/hr diphenhydrAMINE (BENADRYL) tab/cap 25 mg 25 mg, oral, Once, On Sun02/11/20 at 1130, For 1 dose, Please order either PO or IV. DO NOT give both IV and PO. Please give 30 minutes prior to infusion for infusion reaction prophylaxis.Indications:Lupus Given 02/11/2020 11:20 AM SIGN ERECTOR 25 mg ondansetron (ZOFRAN) injection 4 mg 4 mg, intravenous, Administer over 2 Minutes, Once, On Sun02/11/20 at 1130, For 1 dose, Give 30 minutes prior to infusion for infusion reaction prophylaxis.Indications:Lupus Given 02/11/2020 11:26 AM SIGN ERECTOR 4 mg documented in this encounter Orders Medications Ordered That Omer ht Not Have Been Administered Count Last Ordered Date First Ordered Date sodium chloride 0.9% flush 10 mL 1 02/11/20 Nursing Count Last Ordered Date First Orde red Date DAILY WEIGHTS 1 02/11/2020 ONCBCN NURSING COMMUNICATION [id number] 2 1 04/13/2019 PATIENT EDUCATION (SPECIFY) 1 02/11/2020 VITAL SIGNS PRE-INFUSION 1 02/11/2020 documented in this encounter Care Teams Station Air Traffic Control Specialist Relationship Specialty [place] [address] [address] [address] PCP - General 07/04/19 [place] [address] [address] [address] 11/16/18 documented as of this encounter
--- OUTSIDE RECORDS SUMMARY | 2024-02-24 20:11 | XMS_ITS | Encounter Summary ---
Author Organization [facility] [employer] [facility] Address [address] [place] [address] Phone Care Team Providers Care Electrical Integrator Name Role Phone Huseyin Dangelo MD Unavailable [phone] Brian Mon MD Primary Care Provider + Encounter Details Date Type Department Care Team (Latest Contact Info) Description 03/18/2020 Orders Only [facility] Infusion Therapy [address] [facility] 5th [place] [address] [place] [address] Tricia Smith RN Spondyloarthritis (Primary Dx) Social History Tobacco Use Types [...] this encounter Visit Diagnoses Diagnosis Spondyloarthritis- Primary documented in this encounter Orders Appointment Requests Count Last Ordered Date Fi rst Ordered Date INFUSION APPT REQUEST 60 MIN 1 03/18/2020 documented in this encounter Care Teams Electrical Integrator Relationship Specialty [place] [address] [address] [place] [address] PCP - General 07/04/19 [place] [address] [address] [place] [address] 11/16/18 documented as of this encounter
--- OUTSIDE RECORDS SUMMARY | 2024-02-24 20:11 | XMS_ITS | Encounter Summary ---
Author Organization [facility] Address [address] [place] [address] Phone Care Team Providers Care Orthodontic Band Maker Name Role Phone Huseyin Dangelo MD Unavailable [phone] Brian Mon MD Primary Care Provider + Encounter Details Date Type Department Care Team (Late st Contact Info) Description 01/31/2020 Telephone [facility] Rheumatology [facility] Advanced Medicine 5th [place] [address] [place] [address] Дмитрий Garcia MD [address] [place] [address] Social History Tobacco Use Types [...] Refills Last Filled Start Date End Date triamcinolone (KENALOG) 0.1 % cream Apply topically 2 (two) times a day 30 g 01/31/2020 1 documented in this encounter Miscellaneous Notes * Telephone Encounter - Дмитрий Garcia MD - 01/31/2020 8:44 AM CST Called patient back regarding skin rash. Patient was recently treated for ear infection with amoxicillin and has received 2 doses so far. She noticed new onset left neck erythematous rash with pruritis but denied malar rash, eye inflammation, oral ulcers, fever, chill, chest pain, SOB. Her amoxicillin was stopped and switched to Zpack yesterday. Reviewed images sent by patient by email, and it appeared erythematous plaque over left anterior neck. Currently suspicious of eczema vs antibiotics-side effect and low suspicion for SLE flare. Going to send 0.1 triamcinolone cream to pharmacy and asked patient to continue monitoring her symptoms PUNCHING MACHINE OPERATOR documented in this encounter Plan of Treatment Not on file documented as of this encounter Visit Diagnoses Not on filedocumented in this encounter Discontinued Medications Medication Sig Discontinue Reason Start Date End Da te triamcinolone (KENALOG) 0.1 % cream Apply topically 2 (two) times a day DO NOT USE ON FACE 11/07/2019 01/31/2020 documented as of this encounter Additional Health Concerns Infection Onset Date Last Indicated Resolved Time COVID: Suspected 01/19/2020 01/19/2020 02/02/2020 3:06 AM CARD PUNCHING MACHINE OPERATOR documented as of this encounter Care Teams Orthodontic Band Maker Relationship Specialty Start [place] [address] [address] [address] PCP - General 07/04/19 [place] [address] [address] [address] 11/16/18 documented as of this encounter
--- OUTSIDE RECORDS SUMMARY | 2024-02-24 20:11 | XMS_ITS | Encounter Summary ---
Author Organization [facility] Address [address] [place] [address] Phone Care Team Providers Care Corrosion Control Engineer Name Role Phone Huseyin Dangelo MD Unavailable [phone] Brian Mon MD Primary Care Provider + Encounter Details Date Type Department Care Team (Late st Contact Info) Description 03/22/2020 10:30 AM CREDENTIALING ANALYST Office Visit [facility] Rheumatology [address] [facility] Medical Office Building [address] [place] [address] Carolina Delarosa MD [address] [place] [address] Lupus (CMS/HCC) (Primary Dx) Social [...] Reading Time Taken Comments Blood Pressure 118/76 03/22/2020 10:09 AM CREDENTIALING ANALYST Pulse 80 03/22/2020 10:09 AM CREDENTIALING ANALYST Temperature 36.7 ??C (98.1 ??F) 03/22/2020 1 0:09 AM CREDENTIALING ANALYST Respiratory Rate - - Oxygen Saturation - - Inhaled Oxygen Concentration - - Weight 78.4 kg (172 lb 14.4 oz) 021 10:09 AM CREDENTIALING ANALYST Height 160 cm (5' 3 ) 03/22/2020 10:09 AM CREDENTIALING ANALYST Body Mass Index 30.63 03/22/2020 10:09 AM CREDENTIALING ANALYST documented in this encounter Progress Notes * Carolina Delarosa MD - 03/22/2020 10:30 AM CST PATIENT NAME: Carito Rausch : 1990 03/22/2020 HISTORY OF PRESENT ILLNESS: ia a 29 y.o. female with SLE. The patient underwent of spontaneous 2nd trimester [id number] years ago. She was previously healthy and [...] She also has a positive double-stranded DNA, DELIVERY PERSON antibody and a low C4 and C3 [...] examination hydroxychloroquine the last 3 years. She notes that she feels like out of Benlysta for the 1st 24- 48 hours. Her lupus markers are completely normalized. She was seen by Endocrinology and diagnosed [...] days, Disp: 4 Syringe, Rfl: 3 ??? ferrous gluconate 324 mg (38 mg of elemental iron) tablet, TAKE 1 TABLET BY MOUTH THREE TIMES ADAY, Disp: 90 tablet, Rfl: 2 ??? hydrOXYchloroQUINE (PLAQUENIL) 200 mg tablet, TAKE 1 TABLET BY MOUTH NIGHTLY, Disp: 90 tablet, Rfl: 0 ??? meclizine (ANTIVERT) 25 mg tablet, Take [...] 20 tablet, Rfl: 0 ??? predniSONE (DELTASONE) 5 mg tablet, Take 1 tablet (5 mg) by mouth daily, Disp: 90 tablet, Rfl: 3 ??? triamcinolone (KENALOG) 0.1 % cream, Apply topically 2 (two) times a day, Disp: 30 g, Rfl: 0 ??? Ventolin HFA 90 mcg/actuation inhaler, INHALE TWO PUFFS BY MOUTH EVERY FOUR HOURS NEEDED FORWHEEZING/COUGH, Disp: , Rfl: ??? diclofenac sodium (VOLTAREN) 1 % gel, APPLY 2 GRAMS TOPICALLY TO ARTHRITIS JOINTS 3 TIMES A DAYAS NEEDED, Disp: , Rfl: ??? ergocalciferol (VITAMIN D) 50,000 unit capsule, TAKE 1 CAPSULE BY MOUTH ONE TIME PER WEEK, Disp: , Rfl: ??? ipratropium (ATROVENT) 0.03 % nasal spray, INSTILL 1 SPRAY IN EACH NOSTRIL TWICE DAILY, Disp: ,Rfl: ??? omeprazole (PriLOSEC) 20 mg capsule, Take 20 mg by mouth daily, Disp: , Rfl: ??? predniSONE (DELTASONE) 10 mg tablet, Take 10 mg by mouth daily, Disp: , Rfl: ??? valACYclovir (VALTREX) 500 mg tablet, TAKE 1 TAB BY MOUTH 3 TIMES DAILY FOR 7 DAYS., Disp: , Rfl: No current facility-administered medications for this visit. PHYSICAL EXAM: Vitals BP 118/76 Pulse 80 Temp 36.7 ??C (98.1 ??F) Ht 160 cm (5' 3 ) Wt 78.4 kg (172 lb 14.4 oz) BMI 30.63 kg/m?? Physical Exam General examination patient looks cushingoid. She does not have a rash today. Joint examination is essentially within normal limits The no palpable cervical lymph nodes. She has 1 small oral ulcer. RS is clear to auscultation CVS S1-S2 is regular with no rub murmur or gallop LABORATORY DATA: Lab Results Component Value Date WBC 10.9 (H) 01/26/2020 HGB 13.6 01/26/2020 HCT 41.3 01/26/2020 MCV 91 01/26/2020 LABPLAT 313 01/26/2020 Lab Results Component Value Date AST 23 01/26/2020 ALT 15 01/26/2020 CREATININE 0.61 01/26/2020 Lab Results Component Value Date SEDRATE 12 [...] She is now being managed by an gericare aide and is taking prednisone under the guidance and is on currently at 5 mg /d Labs to be done with next infusion DISPOSITION: The patient will return follow up in 3 month s Carolina Delarosa MD ENTIALING ANALYST documented in this encounter Plan of Treatment Not on file documented as of this encounter Results * Protein / creatinine ratio, urine, random (05/13/2020 12:25 PM CDT) Protein, ur, quant 7.2 mg/dL ARPITA ROSADO Comment: Interpretive Data No reference range established. Current interpretive data was last revised 2018. Testing performed by: [facility], [address] [place] [address]., [address] Creatinine Ur 79.8 mg/dL ARPITA ROSADO Comment: Interpretive Data No reference range established. Current interpretive data was last revised 2018. Testing performed by: [facility] [place], [address] [place] [address]., [address] Protein/creatinin e ratio 90.2 0.0 - 180.0 mg/g CR ARPITA ROSADO Comment:Testing performed by : [facility] [place], [address] [place] [address]., [address] Urine 05/13/2020 12:2 5 PM CDT 05/13/2020 5:14 PM CDT Carolina Delarosa MD LAB URINE ORDERABLES Final Result ARPITA [facility]ORANIRA [facility] [address] [facility] Department [place] [address] * C4 complement (05/13/2020 12:25 PM CDT) Complement C4 19 10 - 40 mg/dL ARPITA ROSADO Comment:Testing performed by : [facility] [place], [address] [place] [address]., [address] Blood specimen (specimen) 05/13/2020 12:25 PM CDT 05/13/2020 5:13 PM CDT Carolina Delarosa MD LAB BLOOD ORDERABLES Final Result ARPITA ROSADO [address] [address] [facility] [place] [address] * (ABNORMAL) Urinalysis reflex to microscopic and [...] tendency for uric acid stone formation. Source: [facility] [place]. Last revised 03-08-2017 Carolina Delarosa MD LAB MICROBIOLOGY - GENERAL ORDERABLES Final Result Performing Organization Address City/[facility]/ZIP Co de Phone Number ARPITA BARNESCH [address] [facility] Department [place] [address] * Erythrocyte sedimentation rate (05/13/2020 12:25 PM CDT) Pathologist [facility] Erythrocyte sedimentation rate 12 1 - 20 mm/hr ARPITA ROSADO Blood specimen (specimen) 05/13/2020 12:25 PM CDT 05/13/2020 3:30 PM CDT Carolina Delarosa MD LAB BLOOD ORDERABLES Final Result Performing Organization Address [facility] de Phone Number ARPITA MORANIRA [facility] [address] [facility] [place] [address] * (ABNORMAL) Anti-double stranded DNA antibodies (05/13/2020 12:25 PM CDT) Pathologist [facility] dsDNA Ab 7.0(H) <=4.0 IUnits/mL ARPITA BARNES Comment: Interpretive Data Negative: < or = 4 IUnits/mL Indeterminate: 5 - 9 IUnits/mL Positive: > or = 10 IUnits/mL Current interpretive data was last revised on 2016. Testing performed by: [facility], [address] [place]., [address] Blood specimen (specimen) 05/13/2020 12:25 PM CDT 05/13/2020 4:30 PM CDT Carolina Delarosa MD LAB BLOOD ORDERABLES Final Result Performing Organization Address [facility] Co de Phone Number ARPITA MORANIRA [facility] [address] [facility] [place] [address] * CRP (acute phase) (05/13/2020 12:25 PM CDT) Pathologist [facility] CRP 7.5 <=10.0 mg/L ARPITA [facility]ANIR[facility] Comment:Outpatient Blood specimen (specimen) 05/13/2020 12:25 PM CDT 05/13/2020 3:30 PM CDT Carolina Delarosa MD LAB BLOOD ORDERABLES Final Result Performing Organization Address [facility] Co de Phone Number [facility] [address] [facility] Department [place], [place] [id number] * C3 complement (05/13/2020 12:25 PM CDT) Pathologist [facility] Complement C3 136 90 - 180 mg/dL [facility]ITA [facility] Comment:Testing performed by : [facility], [facility] [facility], [place]., [address] Blood specimen (specimen) 05/13/2020 12:25 PM CDT 05/13/2020 5:13 PM CDT Carolina Delarosa MD LAB BLOOD ORDERABLES Final Result Performing Organization Address [facility] Co de Phone Number [facility] [address] [facility] [place] [address] * (ABNORMAL) Comprehensive metabolic panel (05/13/2020 12:25 PM CDT) Pathologist [facility] Sodium 138 135 - 145 mmol/L AR[facility]ITA [facility] Comment:Outpatient Potassium, pl 3.5 3.3 - 4.9 mmol/L ARPITA ROSADO Comment:Outpatient Chloride 103 97 - 110 mmol/L ARPITA BARNESCH Comment:Outpatient CO2 23 22 - 32 mmol/L ARPITA ROSADO Comment:Outpatient Anion gap 12 2 - 15 mmol/L ARPITA ROSADO Comment:Outpatient BUN 10 8 - 25 mg/dL ARPITA BARNESCH Comment:Outpatient Creatinine 0.56(L) 0.60 - 1.10 mg/dL ARPITA BARNESCH Comment:Outpatient Glucose 68(L) 70 - 199 mg/dL ARPITA MORANWCH Comment: Result called by [id number] at 2020-05-13 16:10:40. Result Read Back by [...] 2017. Calcium 8.9 8.5 - 10.3 mg/dL [facility] Comment:Outpatient Bilirubin, total 0.3 0.1 - 1.2 mg/dL [facility] Comment:Outpatient Protein, pl 6.5 6.5 - 8.5 g/dL [facility] Comment:Outpatient Albumin 4.1 3.5 - 5.0 g/dL [facility] Comment:Outpatient Alk phos 53 40 - 130 Units/L [facility] Comment:Outpatient ALT 10 7 - 45 Units/L [facility] Comment:Outpatient AST 19 10 - 45 Units/L [facility] Comment:Outpatient Blood specimen (specimen) 05/13/2020 12:25 PM CDT 05/13/2020 3:30 PM CDT us Caroilna Delarosa MD LAB BLOOD ORDERABLES Final Result [facility] [address] [facility]. [place] [address] * CBC with auto differential (05/13/2020 12:25 PM CDT) WBC 7.7 3.8 - 9.9 K/cumm [facility] Hgb 12.7 11.9 - 15.5 g/dL [facility] Hct 37.6 35.6 - 45.5 % [facility] Plt 292 150 - 400 K/cumm [facility] MPV 10.1 9.1 - 12.3 fL [facility] RBC 4.04 3.90 - 5.20 M/cumm [facility] MCV 93.1 81.3 - 96.4 fL [facility] MCH 31.4 27.1 - 33.3 pg [facility] MCHC 33.8 32.3 - 35.7 g/dL [facility] RDW CV 13.0 11.1 - 14.9 % [facility] RDW SD 44.6 35.7 - 48.1 fL [facility] NRBC abs 0.00 0.00 - 0.01 K/cumm [facility]ITA MORANWCH Blood specimen (specimen) 05/13/2020 12:25 PM CDT 05/13/2020 3:30 PM CDT Carolina Delarosa MD LAB BLOOD ORDERABLES Final Result [facility]PITA BARNESCH [address] [facility]. Department [place] [address] documented in this encounter Visit Diagnoses Diagnosis Lupus- Primary Systemic lupus erythematosus Lupus Systemic lupus erythematosus documented in this encounter Care Teams Corrosion Control Engineer Relationship Specialty [place] [address] [address] [address] PCP - General 07/04/19 [place] [address] [address] [facility] [place] [address] 11/16/18 documented as of this encounter
--- OUTSIDE RECORDS SUMMARY | 2024-02-24 20:11 | XMS_ITS | Encounter Summary ---
Author Organization [facility] Address [address] [place] [address] Phone Care Team Providers Care Construction Trades Teacher Name Role Phone Huseyin Dangelo MD Unavailable [phone] Brian Mon MD Primary Care Provider + Encounter Details Date Type Department Care Team (Late st Contact Info) Description 02/16/2020 Orders Only [facility] Endocrinology Metabolism and Lipid [address] [facility] Advanced Medicine 5th [place] [address] [place] [address] Etienne Hernandez, FLAVIA Adrenal insufficiency (CMS/HCC) (Primary Dx) Social History [...] Filled Start Date End Date predniSONE (DELTASONE) 1 mg tabletIndications:A drenal insufficiency (HCC) Take 1 tablet (1 mg) by mouth daily 15 tablet 02/16/2020 1 documented in this encounter Plan of Treatment Not on file documented as of this encounter Visit Diagnoses Diagnosis Adrenal insufficiency (HCC)- Primary Glucocorticoid deficiency documented in this encounter Discontinued Medications Medication Sig Discontinue Reason Start Date End Da te predniSONE (DELTASONE) 1 mg tablet Take 1 mg by mouth daily Reorder 01/25/2020 02/16/2020 documented as of this encounter Care Teams Construction Trades Teacher Relationship Specialty [place] [address] [address] [address] PCP - General 07/04/19 [place] [address] [address] [address] 11/16/18 documented as of this encounter
--- OUTSIDE RECORDS SUMMARY | 2024-02-24 20:11 | XMS_ITS | Encounter Summary ---
Author Organization [facility] Address [address] [place] [address] Phone Care Team Providers Care Business Loan Processor Name Role Phone Huseyin Dangelo MD Unavailable Brian Mon MD Primary Care Provider + Reason for Visit * Reason Onset Date Comments questions 03/04/2020 Encounter Details Date Type Department Care Team (Late st Contact Info) Description 03/04/2020 Telephone [facility] Rheumatology [facility] Medicine 5th [place] [address] [place] [address] Nallely Griffiths CMA questions Social History Tobacco Use Types Packs/Day Years [...] Telephone Encounter - Nallely Griffiths CMA - 03/04/2020 10:15 AM CST Pt called to see if she can have Botox injections while on Benlysta infusions. I let her know we will discuss with Dr Delarosa and update her after. Other questions came up regarding her prednisone and tapering instructions currently on 5mg. I explain Dr Fernandez her window display designer is managing her steroids and will discuss with Dr Delarosa to keep her in the loop as her lupus doctor. Advise she contact that office to discuss and get refills if needed. Pt got upset and stated she should not have to see another provider and Dr Delarosa should be able to manage seeing she put her the prednisone. I was not able to speak further with the patient due being aggravated. Pt used profanity and statedwe talk to her like she is a kid. I put her on Dr Delarosa schedule to discuss in office on 03/08 while at for infusion. FYI: F/u message sent today for advise. PLOYMENT SPECIALIST documented in this encounter Plan of Treatment Not on file documented as of this encounter Visit Diagnoses Not on filedocumented in this encounter Care Teams Business Loan Processor Relationship Specialty [place] [address] [address] [address] PCP - General 07/04/19 [place] [address] [address] [address] 11/16/18 documented as of this encounter
--- OUTSIDE RECORDS SUMMARY | 2024-02-24 20:11 | XMS_ITS | Encounter Summary ---
Author Organization [facility] [employer] [facility] Address [address] [place] [address] Phone Care Team Providers Care Pipe Straightener Name Role Phone Huseyin Dangelo MD Unavailable [phone] Brian Mon MD Primary Care Provider + Reason for Visit * Reason Comments Ear Fullness Encounter Details Date Type Department Care Team (Late st Contact Info) Description 03/22/2020 2:40 PM BRIDGE TEACHER Office Visit [facility] ENT [address] [facility] Medical Office Building [address] [place] [address] [place] [id number] [place] [address] [address] [place] [address] Bilateral chronic serous otitis media [...] Sign Reading Time Taken Comments Blood Pressure 105/72 03/22/2020 2:33 PM BRIDGE TEACHER Pulse 87 03/22/2020 2:33 PM BRIDGE TEACHER Temperature 36.8 ??C (98.3 ??F) 03/22/2020 2:33 PM CS T Respiratory Rate - - Oxygen Saturation - - Inhaled Oxygen Concentration - - Weight 78.5 kg (173 lb) 03/22/2020 2:33 PM BRIDGE TEACHER Height - - Body Mass Index 30.65 03/22/2020 10:09 AM BRIDGE TEACHER documented in this encounter Progress Notes * Ray Moreno MD - 03/22/2020 2:40 PM CST Images from the original note were not included. Subjective/Objective Patient ID: Carito Rausch is a 29 y.o. female. Chief Complaint Ear Fullness HPI Mrs. Rausch is a 29-year-old who has had difficulty with an ear infection involving both ears about 2 months ago. Since that time she has continues to have a sensation of fullness involving both ears along with hearing loss. She notes she has previously been on decongestants, nose sprays and also has been on steroids because of having lupus. None of those medications have proved to be helpful in clearing the condition. Review of Systems Constitutional: Negative for appetite change, chills, fatigue, fever and unexpected weight change. HENT: Negative for congestion, dental problem, ear discharge, ear pain, facial swelling, hearing loss, postnasal drip, rhinorrhea, sinus pressure, sneezing, sore throat, tinnitus, trouble swallowing and voice change. Eyes: Negative for discharge, redness, itching and visual disturbance. Respiratory: Negative for cough, shortness of breath and wheezing. Cardiovascular: Negative for chest pain and palpitations. Gastrointestinal: Negative for abdominal distention, abdominal pain, constipation, diarrhea, nauseaand vomiting. Endocrine: Negative for cold intolerance, heat intolerance, polydipsia, polyphagia and polyuria. Musculoskeletal: Negative for arthralgias, gait problem and myalgias. Skin: Negative for rash. Allergic/Immunologic: Negative for environmental allergies and food allergies. Neurological: Negative for dizziness, light-headedness and headaches. Psychiatric/Behavioral: Negative for agitation, confusion, decreased concentration and sleep disturbance. The patient is not nervous/anxious. Physical Exam Constitutional: She appears well-developed. HENT: Clinical examination showed that both tympanic membranes were retracted and showed evidence of an effusion. Tympanograms were done which supported the presence of middle ear pathology. Nasal examination shows a septal deviation no masses or lesions are noted no purulent drainage is noted The oral cavity shows no masses or lesions there is no sign of inflammation or infection. Indirect mirror laryngoscopy was not possible because of gagging. The cervical examination showed no masses or lesions there was no tenderness. Neck: Trachea normal and normal range of motion. Neck supple. Normal carotid pulses and no JVD present. Carotid bruit is not present. Cardiovascular: Normal rate and regular rhythm. Pulmonary/Chest: Effort normal and breath sounds normal. Abdominal: Soft. Normal appearance. Musculoskeletal: Normal range of motion. Neurological: She is alert. She has normal reflexes. Skin: Skin is warm and dry. Psychiatric: Her speech is normal and behavior is normal. Thought content normal. Assessment/Plan Diagnoses and all orders for this visit: Bilateral chronic serous otitis media (H65.23) (Primary) She has not had any response to conservative management. We also tried doing politerization today which did not help the situation. Discussing the problem with her I suggested that tympanostomy tubeswould be appropriate. I also suggested considering all her medical problems it would be helpful and informative for her to have an audiogram prior to having tubes placed. She [facility] an [facility] which showed conductive hearing loss involving both ears. The plan will be to place tympanostomy tubes in both ears in the near future. GE TEACHER documented in this encounter Plan of Treatment Not on file documented as of this encounter Visit Diagnoses Diagnosis Bilateral chronic serous otitis media- Primary Simple or unspecified chronic serous otitis media documented in this encounter Care Teams Pipe Straightener Relationship Specialty [place] [address] [address] [facility] [address] [place] [address] PCP - General 07/04/19 [place] [address] [address] [facility] [address] [place] [address] 11/16/18 documented as of this encounter
--- OUTSIDE RECORDS SUMMARY | 2024-02-24 20:11 | XMS_ITS | Encounter Summary ---
Author Organization [facility] Healthcare Address [address] [place] [address] Care Team Providers Care Vacuum Cooker Operator Name Role Phone Huseyin Dangelo MD Unavailable Brian Mon MD Primary Care Provider + Encounter Details Date Type Department Care Team (Late st Contact Info) Description 03/22/2020 11:00 AM EKG TECHNICIAN Lab [facility] [address] [place] [address] Adrenal insufficiency (CMS/HCC) Social History Tobacco Use [...] Procedure Name Priority Date/Time Associated Diagnosis Comments CORTISOL 30 MIN Timed 03/22/2020 10:03 AM EKG TECHNICIAN Adrenal insufficiency (CMS/HCC) COSYNTROPIN STIMULATION TEST Timed 03/22/2020 10:03 AM EKG TECHNICIAN Adrenal insufficiency (CMS/HCC) CORTISOL BASELINE Timed 03/22/2020 10: 03 AM EKG TECHNICIAN Adrenal insufficiency (CMS/HCC) CORTISOL 60 MIN Timed 03/22/2020 10:03 AM EKG TECHNICIAN Adrenal insufficiency (CMS/HCC) ACTH Routine 03/22/2020 9:03 AM EKG TECHNICIAN Adrenal insufficiency (CMS/HCC) documented in this encounter Results * Cortisol 60 min (03/22/2020 10:03 AM EKG TECHNICIAN) Cortisol, 60 min 5.7 4.8 - 19.5 mcg/dl ARPITA ROSADO Comment:Testing performed by : [facility], [address] [place] [address]., [address] Blood specimen (specimen) 03/22/2020 10:03 AM EKG TECHNICIAN 03/22/2020 12:55 PM EKG TECHNICIAN Narrative ARPITA ROSADO - 03/22/2020 1:32 PM EKG TECHNICIAN Obtain pre, 30 minutes, and 60 minutes post cosyntropin adminstration. Darius Fernandez MD LAB BLOOD ORDERABLES Final Resul t ARPITA MORANCH [address] [facility] Department of Laboratories [place], [place] [id number] * Cortisol 30 min (03/22/2020 10:03 AM EKG TECHNICIAN) Cortisol, 30 min 5.5 4.8 - 19.5 mcg/dl ARPITA ROSADO Comment:Testing performed by : [facility], [address] [place] [address], [place]., [address] Blood specimen (specimen) 03/22/2020 10:03 AM EKG TECHNICIAN 03/22/2020 12:54 PM EKG TECHNICIAN Narrative ARPITA ROSADO - 03/22/2020 1:28 PM EKG TECHNICIAN Obtain pre, 30 minutes, and 60 minutes post cosyntropin adminstration. us Darius Fernandez MD LAB BLOOD ORDERABLES Final Resul t Performing Organization Address [facility] de Phone Number [facility] [address] [address] [facility] [place] [address] * (ABNORMAL) Cortisol baseline (03/22/2020 10:03 AM EKG TECHNICIAN) Pathologist [facility] Cortisol, base 2.2(L) 4.8 - 19.5 mcg/dl [facility] Comment:Testing performed by : [facility], [address] [place] [address]., [address] Blood specimen (specimen) 03/22/2020 10:03 AM EKG TECHNICIAN 03/22/2020 12:54 PM EKG TECHNICIAN Narrative ARPITA ROSADO - 03/22/2020 1:26 PM EKG TECHNICIAN Obtain pre, 30 minutes, and 60 minutes post cosyntropin adminstration. Darius Fernandez MD LAB BLOOD ORDERABLES Final Resul t Performing Organization Address [facility] de Phone Number ARPITA BJWCH [address] [address] [facility] [email or web address] [address] * ACTH (03/22/2020 9:03 AM EKG TECHNICIAN) [facility] ACTH 11 pg/mL ARPITA BJW Comment: REFERENCE VALUE 7.2-63 (a.m. collection) Test Performed by: [facility] [address] [place] [address] Heel Seat Fitter Machine: Dima Travis M.D. Ph.D.; CLIA# [id number] Blood specimen (specimen) 03/22/2020 9:03 AM EKG TECHNICIAN 03/22/2020 11:10 AM EKG TECHNICIAN Darius Fernandez MD LAB BLOOD ORDERABLES Final Resul t ARPITA [facility]JW[facility] [address] [address] [facility]. [place] [address] documented in this encounter Visit Diagnoses Diagnosis Adrenal insufficiency (HCC) Glucocorticoid deficiency documented in this encounter Care Teams Vacuum Cooker Operator Relationship Specialty [place] [address] [address] [address] PCP - General 07/04/19 [place] [address] [address] [address] 11/16/18 documented as of this encounter
--- OUTSIDE RECORDS SUMMARY | 2024-02-24 20:12 | XMS_ITS | Encounter Summary ---
Author Organization [facility] Address [address] [place] [address] Phone Care Team Providers Care Call Or Contact Centre Manager Name Role Phone Huseyin Dangelo MD Unavailable [phone] Brian Mon MD Primary Care Provider + Reason for Visit * Neurology (Routine) - Closed Specialty Diagnoses / Procedures Referred By Contac t Referred To Contact Diagnoses Laceration of flexor muscle, fascia and tendon of right little finger at wrist and hand level, initial encounter Procedures EMG/NCV WITH ULTRASOUND -Please select the performing region: [facility] (All Locations); Procedure performed at: [facility] Ortho Physiatry Jorge Fernandes MD Phone: tel: fax: [facility] (All Locations) Referral ID Status Reason Start Date Expiration Date Visits Re quested Visits Authorized [id number] Closed 10/17/2019 11/15/2020 1 1 Encounter Details Date Type Department Care Team (Late st Contact Info) Description 12/10/2019 3:15 PM CDT Diagnostic [facility] Orthopaedic Surgery [address] [facility] Medical Office Building [address] [place] [address] Bon Agosto MD [address] [facility] [address] [place] [address] Laceration of flexor muscle, fascia and tendon of right little finger at wrist and hand level, initial encounter Social History Tobacco Use Types Packs/Day [...] Procedure Name Priority Date/Time Associated Diagnosis Comments EMG/NCV Routine 12/12/2019 9:14 AM CDT Laceration of flexor muscle, fascia and tendon of right little finger at wrist and hand level, initial encounter documented in this encounter Results * EMG/NCV WITH ULTRASOUND -Please select the performing region: [facility] (All Locations); Procedure performed at: [facility] Physiatry (12/12/2019 9:14 AM CDT) Anatomical Region Laterality Modality Other Jorge Fernadnes MD NEUROLOGY ORDERABLES Final Result documented in this encounter Visit Diagnoses Diagnosis Laceration of flexor muscle, fascia and tendon of right little finger at wrist and hand level, initial encounter documented in this encounter Care Teams Call Or Contact Centre Manager Relationship Specialty [place] [address] [address] [address] PCP - General 07/04/19 [place] [address] [address] [address] 11/16/18 documented as of this encounter
--- OUTSIDE RECORDS SUMMARY | 2024-02-24 20:12 | XMS_ITS | Encounter Summary ---
Author Organization [facility] Address [address] [place] [address] Phone Care Team Providers Care Substation Operator Chief Name Role Phone Huseyin Dangelo MD Unavailable [phone] Brian Mon MD Primary Care Provider + Encounter Details Date Type Department Care Team (Latest Contact Info) Description 11/11/2019 2:00 PM CDT Telemedicine [facility] Endocrinology Metabolism and Lipid [address] [facility] Advanced Medicine 5th [place] [address] [place] [address] Darius Fernandez MD [address] [facility] [address] [place] [address] Adrenal insufficiency (CMS/HCC) (Primary Dx) [...] Sign Reading Time Taken Comments Blood Pressure 127/76 11/11/2019 2:01 PM CDT Pulse 83 11/11/2019 2:01 PM CDT Temperature 36.8 ??C (98.3 ??F) 11/11/2019 2:01 PM CD T Respiratory Rate - - Oxygen Saturation - - Inhaled Oxygen Concentration - - Weight 74.8 kg (165 lb) 11/11/2019 2:01 PM CDT Height 157.5 cm (5' 2 ) 11/11/2019 2:01 PM CDT Body Mass Index 30.18 11/11/2019 2:01 PM CDT documented in this encounter Progress Notes * Francois Fernandez MD - 11/11/2019 2:00 PM CDT Images from the original note were not included. Endocrine Patient Visit This was a telemedicine visit with Umer anglin which took place via real-time video connection with [employer]. During the visit, I was located in the office and the patient was located at home.The patient visit started at 2:00 and ended at 2:20 . Total encounter time was 30 minutes, which includes time spent today on pre charting, the patient encounter, and post charting. The patient has been informed that the visit may not be secure and acknowledged the information. I have explained the option of participating in a telephone or video visit during the [address] emergency to the patient. 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 Has required high Dose in the past up to 60 mg daily. Currently attempting taper. Current dose is 11 mg daily which has been on ( down form 12 mg daily) for the last 2 weeks. She is feeling fatigued all the time. When she tried to decrease her dose to 10 mg she flet very tired and had to increase her dose back to 11 mg daily. Her other symptoms include nausea every nausea every day. Abdominal pain. Dizzy all the time. But when she checks Her blood pressure it is usually in the 120/80 range. Feeling dizzy. Can't focus on things. No spinning. Feels dizzy even when she is in bed. Not changedby posistion, turing or standing. Feels that she is going to pass out. She thinks her symptoms start after taking prednisone every day. She reports being evaluated by neurology for this and reports that testing and imaging has not identified any abnormality. She believes that taking a lower dose ofprednisone might help. Current Outpatient Medications Medication ??? ALPRAZolam (XANAX) 0.25 mg tablet ??? ergocalciferol (VITAMIN D) 50,000 unit capsule ??? ferrous gluconate 324 mg (37.5 mg of elemental iron) tablet ??? hydrOXYchloroQUINE (PLAQUENIL) 200 mg tablet ??? multivitamin capsule ??? omeprazole (PriLOSEC) 20 mg capsule ??? predniSONE (DELTASONE) 5 mg tablet ??? triamcinolone (KENALOG) 0.1 % cream ??? acidophilus-pectin, citrus 100 million cell-10 mg capsule ??? albuterol (PROAIR RESPICLICK) 90 mcg/actuation inhaler ??? ALPRAZolam (XANAX) 0.25 mg tablet ??? belimumab (Benlysta) auto-injector ??? carBAMazepine (TEGretol) 100 mg chewable tablet ??? divalproex DR (DEPAKOTE) 250 mg EC tablet ??? escitalopram (LEXAPRO) 5 mg tablet ??? fexofenadine (KERI) 60 mg tablet ??? HYDROcodone-acetaminophen (NORCO) 5-325 mg per tablet ??? hydrOXYzine (ATARAX) 25 mg tablet ??? ketorolac (TORADOL) 10 mg tablet ??? levETIRAcetam (KEPPRA) 500 mg tablet ??? ondansetron (ZOFRAN) 4 mg tablet ??? predniSONE (DELTASONE) 1 mg tablet ??? prochlorperazine (COMPAZINE) 10 mg tablet ??? traZODone (DESYREL) 150 mg tablet No current facility-administered medications for this visit. Review of Systems Review of systems per HPI and otherwise all other systems are negative. OBJECTIVES Physical exam: BP 127/76 Pulse 83 Temp 36.8 ??C (98.3 ??F) Ht 157.5 cm (5' 2 ) Wt 74.8 kg (165 lb) BMI 30.18 kg/m?? General Appearance: NAD, well developed Head: No [...] ??? Methylprednisolone Anaphylaxis and Syncope Syncope ??? Escitalopram Other (See comments) Caused seizures ??? Venlafaxine Itching Social History Tobacco Use ??? Smoking status: Former Smoker Quit date: 12/28/2018 Years since quittin.8 ??? Smokeless tobacco: Never Used Substance Use [...] history of lupus which has required terminal operations manager steriod use for 2.5 years. This is a follow up visit for likely steroid withdrawal syndrome and secondary adrenal insuffiencey. She requested this appointment to discuss her dizziness which she believes is related to steroid use. She would like to try a lower dose of prednisone to see if this helps her dizziness. We will try a physiologic dose of prednisone that is enough to replace her daily cortisol needs. She will try 5 mg of prednisone daily and let me know if this alleviates her dizziness. I have answered her questions. RTC as previously scheduled. Francois Fernandez MD Instructor in Medicine Division of Endocrinology, Metabolism and Lipid Research [facility] documented in this encounter Plan of Treatment Not on file documented as of this encounter Visit Diagnoses Diagnosis Adrenal insufficiency (HCC)- Primary Glucocorticoid deficiency documented in this encounter Care Teams Substation Operator Chief Relationship Specialty [place] [address] [address] [address] PCP - General 07/04/19 [place] [address] [address] [address] 11/16/18 documented as of this encounter
--- OUTSIDE RECORDS SUMMARY | 2024-02-24 20:12 | XMS_ITS | Encounter Summary ---
Author Organization [facility] Address [address] [facility] [address] [place] [address] Care Team Providers Care Medical Claims Assistant Name Role Phone Huseyin Dangelo MD Unavailable [phone] Brian Mon MD Primary Care Provider + Encounter Details Date Type Department Care Team (Late st Contact Info) Description 01/18/2020 5:15 PM SOLAR ENERGY SYSTEMS DESIGNER Telemedicine [facility] Virtual Care [address] [place] [address] Rachelle Saunders, KINGA [address] [place] [address] Cough (Primary Dx) Social History Tobacco Use Types [...] of this encounter Progress Notes * Rachelle Saunders NP - 01/18/2020 5:15 PM CST Images from the original note were not included. This was a telemedicine visit with Carito anglin which took place via real-time video connection with [employer]. During the visit, I was located in the office and the patient was located at home in the state [facility]. The patient visit started at 1716 and ended at 1720. Total encounter time was 4 minutes, which includes time spent today on [...] billed and/or responsible for any applicable copayments. Patient presents today for video visit due recently having pneumonia 4 weeks ago. She states she has been on leviquin and azithromycin. Patient states her friend tested positive COVID recently, but she has had multiple negative test. She was retested yesterday morning Review of Systems Physical Exam Assessment/Plan Diagnoses and all orders for this visit: Cough (Primary) Assessment & Plan: Patient awaiting COVID results instructed to quarantine until 10 days after symptoms started. Other orders - Request for Ambulatory Collection Site Testing - Adult; Future Rachelle Saunders NP R ENERGY SYSTEMS DESIGNER documented in this encounter Miscellaneous Notes * Assessment & Plan Note - Rachelle Saunders NP - 01/18/2020 5:22 PM SOLAR ENERGY SYSTEMS DESIGNER Associated Problem(s): Cough Patient awaiting COVID results instructed to quarantine until 10 days after symptoms started. R ENERGY SYSTEMS DESIGNER documented in this encounter Plan of Treatment Not on file documented as of this encounter Visit Diagnoses Diagnosis Cough- Primary documented in this encounter Care Teams Medical Claims Assistant Relationship Specialty [place] [address] [address] PCP - General 07/04/19 [place] [address] [facility] [address] [address] 11/16/18 documented as of this encounter
--- OUTSIDE RECORDS SUMMARY | 2024-02-24 20:12 | XMS_ITS | Encounter Summary ---
Author Organization [facility] Address [address] [place] [address] Phone Care Team Providers Care Animal Anatomist Name Role Phone Huseyin Dangelo MD Unavailable [phone] Brian Mon MD Primary Care Provider + Encounter Details Date Type Department Care Team (Late st Contact Info) Description 12/11/2019 Telephone [facility] Orthopaedic Surgery [address] [facility] 2nd Floor [address] [place] [address] Jorge Fernandes MD [address] [facility] [address] [place] [address] Social History Tobacco Use Types [...] Telephone Encounter - Stacy Perla RMA - 12/11/2019 9:38 AM CDT Patient had EMG completed yesterday and scheduled for Her Zoom visit as first available on 12/24/19. She is wanting to come in sooner to see Dr Fernandes bc she wanted to get scheduled for surgery if needed, before her Chemo. I explained that she rescheduled her EMG a few times and the 3rd attempt of the EMG was completed due to her own schedule. She understood and will be available for her zoom appointment in 12/24/19 documented in this encounter Plan of Treatment Not on file documented as of this encounter Visit Diagnoses Not on filedocumented in this encounter Care Teams Animal Anatomist Relationship Specialty [place] [address] [address] PCP - General 07/04/19 [place] [address] [address] [place] [address] [place] [address] 11/16/18 documented as of this encounter
--- OUTSIDE RECORDS SUMMARY | 2024-02-24 20:12 | XMS_ITS | Encounter Summary ---
Author Organization [facility] Address [address] [place] [address] Phone Care Team Providers Care Quenching Machine Operator Name Role Phone Huseyin Dangelo MD Unavailable [phone] Brian Mon MD Primary Care Provider + Encounter Details Date Type Department Care Team (Late st Contact Info) Description 11/11/2019 Telephone [facility] Rheumatology [address] [facility] Advanced Medicine 5th [place] [address] [place] [address] Raji Johnson, LICENSED SALES PRODUCER [address] [place] [address] Social History Tobacco Use Types [...] Notes * Telephone Encounter - Raji Johnson MSW - 11/11/2019 2:58 PM CDT Spoke with pt re: mental health issues. Attempted to ask pt what biggest barrier is, pt states thatissue is related to provider care and communication. Attempted to redirect pt to focus more on specific mental health issues, but pt states, I think my medical issues are making me crazy . Pt continued to express concerns with communication. Validated pt's feelings of frustration and anxiety, and a ttempted to transition the conversation to focus on psychiatry. Attempted to focus on bridging issues with communication and focusing on discussing this at upcoming appointment. Informed pt that SW would inform provider and staff of her concerns. Provided pt with resources for psychiatry. To f/u atupcoming clinic apt. VESNA Lucio 11/11/2019 3:27 PM [phone] documented in this encounter Plan of Treatment Not on file documented as of this encounter Visit Diagnoses Not on filedocumented in this encounter Care Teams Quenching Machine Operator Relationship Specialty [place] [address] [address] PCP - General 07/04/19 [place] [address] [address] [address] 11/16/18 documented as of this encounter
--- OUTSIDE RECORDS SUMMARY | 2024-02-24 20:12 | XMS_ITS | Encounter Summary ---
Author Organization [facility] Address [address] [place] [address] Phone Care Team Providers Care Landing Signal Officer Name Role Phone Huseyin Dangelo MD Unavailable [phone] Brian Mon MD Primary Care Provider + Encounter Details Date Type Department Care Team (Late st Contact Info) Description 01/19/[address] [facility] Orthopaedic Surgery [address] [facility] 2nd Floor [address] [place] [address] Jorge Fernandes MD [address] [facility] [address] [place] [address] Social History Tobacco Use Types [...] Telephone Encounter - Stacy Perla RMA - 01/19/2020 2:54 PM CST Called pt to see if she was ready to schedule. At this time she would like to hold off on surgery until February and will give us a call when she is ready to schedule her RIGHT CARPAL TUNNEL RELEASE HOLOGY LECTURER documented in this encounter Plan of Treatment Not on file documented as of this encounter Visit Diagnoses Not on filedocumented in this encounter Additional Health Concerns Infection Onset Date Last Indicated Resolved Time COVID: Suspected 01/19/2020 01/19/2020 02/02/2020 3:06 AM PSYCHOLOGY LECTURER documented as of this encounter Care Teams Landing Signal Officer Relationship Specialty [place] [address] [address] [address] PCP - General 07/04/19 [place] [address] [address] [address] 11/16/18 documented as of this encounter
--- OUTSIDE RECORDS SUMMARY | 2024-02-24 20:12 | XMS_ITS | Encounter Summary ---
Author Organization [facility] Address [address] [place] [address] Phone Care Team Providers Care Licensed Guide Name Role Phone Huseyin Dangelo MD Unavailable [phone] Brian Mon MD Primary Care Provider + Encounter Details Date Type Department Care Team (Late st Contact Info) Description 11/23/[address] [facility] Rheumatology [address] [facility] Advanced Medicine 5th [place] [address] [place] [address] Tadeo Liriano MD [address] [place] [address] Social History Tobacco Use Types [...] encounter Miscellaneous Notes * Telephone Encounter - Nolvia Ibarra MD - 12/01/2019 4:09 PM CDT Thanks for the update. Agree with taking valtrex with benlysta (ok to take) * Telephone Encounter - Nallely Griffiths CMA - 12/01/2019 3:52 PM CDT Patient called today with questions on taking Valtrex with Benlysta infusion. I consulted with Dr Alvarado and she confirmed this is okay to do. Pt has Genital Herpes and has has not had a break on in a while. Will take 500mg daily as a preventative. At the end of the call I asked about her symptoms after stopping the HCQ. She stated she started back and has been taking 100mg alt with 200mg every other day to self build the medication in her system. I explain she should follow the advise of 100mg due to the symptoms she continue to report to the office. Pt verbally understand. I will place her on our appt lit and will call her back with a Swift Shift appt after Dr Delarosa returns. * Telephone Encounter - Nolvia Ibarra MD - 11/24/2019 10:10 AM CDT Could you see if Carito can cut the pill in half so HCQ 100mg daily * Telephone Encounter - Nolvia Ibarra MD - 11/23/2019 2:01 PM CDT Thanks for the update Was she taking only 1/2 tablet? * Telephone Encounter - Tadeo Liriano MD - 11/23/2019 12:57 PM CDT Patient called c/o nausea, vomiting and diarrhea since she restarted HCQ on three days ago. No other symptoms. Will stop and and I'll let her primary booker know. documented in this encounter Plan of Treatment Not on file documented as of this encounter Visit Diagnoses Not on filedocumented in this encounter Care Teams Licensed Guide Relationship Specialty [place] [address] [address] [address] PCP - General 07/04/19 [place] [address] [address] [place] [address] 11/16/18 documented as of this encounter
--- OUTSIDE RECORDS SUMMARY | 2024-02-24 20:12 | XMS_ITS | Encounter Summary ---
Author Organization [facility] Address [address] [place] [address] Phone Care Team Providers Care Fancy Needleworker Name Role Phone Huseyin Dangelo MD Unavailable [phone] Brian Mon MD Primary Care Provider + Encounter Details Date Type Department Care Team (Late st Contact Info) Description 11/07/2019 Orders Only [facility] Rheumatology [address] [facility] Advanced Medicine 5th [place] [address] [place] [id number] Jt Hines, [address] [id number] [place] [address] Social History Tobacco Use Types Packs/Day Years [...] a day DO NOT USE ON FACE 30 g 11/07/2019 0 documented in this encounter Progress Notes * Jt Hines DO - 11/07/2019 12:33 PM CDT Order placed for triamcinolone 0.1% applied twice daily for left side and thigh rash. documented in this encounter Plan of Treatment Not on file documented as of this encounter Visit Diagnoses Not on filedocumented in this encounter Care Teams Fancy Needleworker Relationship Specialty [place] [address] [address] [address] PCP - General 07/04/19 [place] [address] [address] [address] 11/16/18 documented as of this encounter
--- OUTSIDE RECORDS SUMMARY | 2024-02-24 20:12 | XMS_ITS | Encounter Summary ---
Author Organization [facility] Address [address] [place] [address] Phone Care Team Providers Care Card Clothier Name Role Phone Huseyin Dangelo MD Unavailable [phone] Brian Mon MD Primary Care Provider + Encounter Details Date Type Department Care Team (Late st Contact Info) Description 11/05/2019 Telephone [facility] Rheumatology [address] [facility] Advanced Medicine 5th [place] [address] [place] [address] Rishi Davis MD [address] [place] [address] Social History Tobacco Use Types [...] encounter Miscellaneous Notes * Telephone Encounter - Rishi Davis MD - 11/05/2019 7:33 AM CDT Ms Rausch called this morning after receiving her Benlysta infusion yesterday stating she had repeated episodes of vomiting and diarrhea since yesterday This is a reported adverse effect with Benlysta seen in about 10% of patients Advised her to stay hydrated and if unable to do so or if she develops a fever to report to the nearest ED Rishi Davis MD 11/05/2019 7:35 AM documented in this encounter Plan of Treatment Not on file documented as of this encounter Visit Diagnoses Not on filedocumented in this encounter Additional Health Concerns Infection Onset Date Last Indicated Resolved Time COVID: Recovered Comment:Flag applied in error. Added based on recent COVID infection. 09/04/2019 10/15/2019 11/06/2019 11:15 AM CDT documented as of this encounter Care Teams Card Clothier Relationship Specialty [place] [address] [address] PCP - General 07/04/19 [place] [address] [address] [address] 11/16/18 documented as of this encounter
--- OUTSIDE RECORDS SUMMARY | 2024-02-24 20:12 | XMS_ITS | Encounter Summary ---
Author Organization [facility] Address [address] [place] [address] Phone Care Team Providers Care Seed Cutter Name Role Phone Huseyin Dangelo MD Unavailable [phone] Brian Mon MD Primary Care Provider + Reason for Visit * Reason Onset Date Comments Med question 12/19/2019 Encounter Details Date Type Department Care Team (Late st Contact Info) Description 12/19/[address] [facility] Endocrinology Metabolism and Lipid [address] [facility] Advanced Medicine 5th [place] [address] [place] [address] Mckayla Matos MD [address] [facility] [address] [place] [address] Med question Social History Tobacco Use Types Packs/Day Years [...] Telephone Encounter - Francois Fernandez MD - 12/22/2019 4:[address] you Dr. Matos. I agree. It is a good idea. * Telephone Encounter - Mckayla Matos MD - 12/19/2019 7:51 PM CDT Pt called stating that lately she has felt like she is running into a wall around 5pm daily. Currently takes prednisone 10mg around 6:30am daily. She asks if there would be benefit in splitting dose. Currently has 10 and 5mg prednisone tabs at home. I suggested that she trying taking 5mg BID, first in AM and 2nd dose around 5pm. Advised her to contact Dr. Fernandez on Sunday for further guidance onlong term med changes. Pt agreeable to plan. documented in this encounter Plan of Treatment Not on file documented as of this encounter Visit Diagnoses Not on filedocumented in this encounter Care Teams Seed Cutter Relationship Specialty [place] [address] [address] [address] PCP - General 07/04/19 [place] [address] [address] [address] 11/16/18 documented as of this encounter
--- OUTSIDE RECORDS SUMMARY | 2024-02-24 20:12 | XMS_ITS | Encounter Summary ---
Author Organization [facility] Address [address] [facility] [address] [place] [address] Care Team Providers Care Meal Cooker Name Role Phone Huseyin Dangelo MD Unavailable [phone] Brian Mon MD Primary Care Provider + Encounter Details Date Type Department Care Team (Late st Contact Info) Description 01/19/2020 Orders Only [facility] Testing Site - [address] [id number] Rachelle Saunders, KINGA [address] [place], [place] [id number] Exposure to SARS-associated coronavirus (Primary Dx) Social [...] as of this encounter Progress Notes * Griffin Lundy - 01/19/2020 7:51 AM CST Symptomatic with high risk condition ?? High risk condition: Immunosuppression (e.g. bone marrow or ogan transplantation, poorly controlledHIV) ?? Date of symptom onset 01/16/2020 ?? Testing site patient will be sent to: [facility] ?? Date testing requested: 01/19/2020 ?? Testing: COVID-RNA ?? Does the patient currently work in a healthcare facility with direct patient contact? No ?? Is the patient a resident of a congregate care or living setting? No ?? Is the patient ? No ?? Please select the performing region: [facility] IMEDIA PRODUCER documented in this encounter Plan of Treatment Not on file documented as of this encounter Visit Diagnoses Diagnosis Exposure to SARS-associated coronavirus- Primary documented in this encounter Additional Health Concerns Infection Onset Date Last Indicated Resolved Time COVID: Suspected 01/19/2020 01/19/2020 02/02/2020 3:06 AM MULTIMEDIA PRODUCER documented as of this encounter Care Teams Meal Cooker Relationship Specialty [place] [address] [address] [place] [address] PCP - General 07/04/19 [place] [address] [address] [place] [address] 11/16/18 documented as of this encounter
--- OUTSIDE RECORDS SUMMARY | 2024-02-24 20:12 | XMS_ITS | Encounter Summary ---
Author Organization [facility] Address [address] [place] [address] Phone Care Team Providers Care Edger Operator Name Role Phone Huseyin Dangelo MD Unavailable [phone] Brian Mon MD Primary Care Provider + Reason for Visit * Reason Onset Date Comments Med Management 11/05/2019 Encounter Details Date Type Department Care Team (Late st Contact Info) Description 11/05/2019 Telephone [facility] Internal Medicine [address] [place] [address] [place] [address] Nallely Griffiths, [facility] Med Management Social History Tobacco Use Types [...] Telephone Encounter - Nallely Griffiths CMA - 11/05/2019 12:25 PM CDT She has some Zofran on hand. She ask me was it ok to take when I spoke to her and I said yes. * Telephone Encounter - Jt Hines DO - 11/05/2019 12:10 PM CDT Noted. Thank you. We can provide her some Zofran ODT if she would like to try to help with the nausea. Review of last 6 EKGs in chart form 2019 shows no prolonged QTc. Reviewed allergy list. * Telephone Encounter - Nallely Griffiths CMA - 11/05/2019 10:02 AM CDT Pt called with concerns of the HCQS and Benlysta being to much for her and the cause of the the vomiting, diarrhea, nausea and dizziness. The patient strongly request to stop the HCQS. I stated she Ionly on 1 tab and this medication is for her lupus. I left her know the only way to know if this isfrom the medication is to hold if for 1-2 weeks at max. She was advise to give an update on her symptoms at the OV with Dr Ibarra on 11/19 which would be the 2 week missy. Pt verbally understood. Side Note: Patient sent a mychart before office open and call spoke with the machine stone polisher apprentice provider at 7:35am regarding the same concerns. Pt has had reported these symptoms before starting the infusion. We called and set up an appt with GI for the pt to be seen and evaluated. Pt stated she was informed that this appt was not needed. Stated she has has test ran in the pass and everything was normal. I will forward this message to the clinic fellows that has spoken given pt advise in the pass as [email or web address] documented in this encounter Plan of Treatment Not on file documented as of this encounter Visit Diagnoses Not on filedocumented in this encounter Additional Health Concerns Infection Onset Date Last Indicated Resolved Time COVID: Recovered Comment:Flag applied in error. Added based on recent COVID infection. 09/04/2019 10/15/2019 11/06/2019 11:15 AM CDT documented as of this encounter Care Teams Edger Operator Relationship Specialty [place] [address] [address] [facility] [place] [address] PCP - General 07/04/19 [place] [address] [address] [place] [address] 11/16/18 documented as of this encounter
--- OUTSIDE RECORDS SUMMARY | 2024-02-24 20:12 | XMS_ITS | Encounter Summary ---
Author Organization [facility] Address [address] [place] [address] Care Team Providers Care Assurance Senior Name Role Phone Huseyin Dangelo MD Unavailable [phone] Brian Mon MD Primary Care Provider + Reason for Visit * Reason Comments Nausea Encounter Details Date Type Department Care Team (Late st Contact Info) Description 11/07/2019 8:39 AM CDT - 11/07/2019 9:31 AM CDT Emergency [facility] Emergency Department [address] [place] [address] Nausea (Primary Dx); Dizziness; Diarrhea, unspecified type Discharge Disposition: Left Against Medical Advice Social [...] Sign Reading Time Taken Comments Blood Pressure 127/79 11/07/2019 8:58 AM CDT Pulse 96 11/07/2019 8:58 AM CDT Temperature 36.4 ??C (97.5 ??F) 11/07/2019 8:58 AM CD T Respiratory Rate 18 11/07/2019 8:58 AM CDT Oxygen Saturation 99% 11/07/2019 8:58 AM CDT Inhaled Oxygen Concentration - - Weight - - Height - - Body Mass Index - - documented in this encounter Discharge Diagnoses Diagnosis Nausea - NAUSEA Nausea alone Dizziness and giddiness - DIZZINESS AND GIDDINESS Diarrhea, unspecified - DIARRHEA, UNSPECIFIED 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) ([facility]) - GLOMERULAR DISEASE IN SYSTEMIC LUPUS ERYTHEMATOSUS Chronic kidney disease, unspecified - CHRONIC KIDNEY DISEASE, UNSPECIFIED Unspecified asthma, uncomplicated - UNSPECIFIED ASTHMA, UNCOMPLICATED Fibromyalgia - FIBROMYALGIA Unspecified myalgia and myositis Rheumatoid arthritis, unspecified (HCC) - RHEUMATOID ARTHRITIS, UNSPECIFIED Major depressive disorder, single episode, unspecified - MAJOR DEPRESSIVE DISORDER, SINGLE EPISODE, UNSPECIFIED Unspecified convulsions (HCC) - UNSPECIFIED CONVULSIONS Other senior living (current) drug therapy - OTHER SENIOR LIVING (CURRENT) DRUG THERAPY Personal history of nicotine dependence - PERSONAL HISTORY OF NICOTINE DEPENDENCE Procedure and treatment not carried out because of patient's decision for other reasons - PROCEDURE AND TREATMENT NOT CARRIED OUT BECAUSE OF PATIENT'S DECISION FOR OTHER REASONS documented in this encounter Medications at Time of Discharge acidophilus-pectin, citrus 100 million cell-10 mg capsule Take by mouth 0 albuterol (PROAIR RESPICLICK) 90 mcg/actuation inhalerIndications: Acute Asthma Attack Inhale 2 puffs every 6 (six) hours as needed for wheezing 0 ALPRAZolam (XANAX) 0.25 mg tablet Take 0.25 mg by mouth 3 (three) times a day as needed 1 ALPRAZolam (XANAX) 0.25 mg tablet Take 1 tablet (0.25 mg total) by mouth nightly as needed for anxiety for up to 3 days 3 tablet 10/06/2019 0 belimumab (Benlysta) auto-injector Inject 1 mL (200 mg total) under the skin every 7 days 4 Syringe 3 07/23/2019 1 carBAMazepine (TEGretol) 100 mg chewable tabletIndications:E pilepsy undetermined as to focal or generalized ([facility]) Take one tablet by mouth twice a day for one week, then 2 tablets twice a day 120 tablet 3 08/26/[address] (DEPAKOTE) 250 mg EC tablet Take 250 mg by mouth 3 (three) times a day 09/21/2019 0 ergocalciferol (VITAMIN D) 50,000 unit capsule TAKE 1 CAPSULE BY MOUTH ONE TIME PER WEEK 06/21/2019 1 escitalopram (LEXAPRO) 5 mg tablet Take 5 mg by mouth daily 0 ferrous gluconate 324 mg (37.5 mg of elemental iron) tabletIndications:I anila deficiency Take 1 tablet (324 mg total) by mouth 3 (three) times a day 90 tablet 2 11/03/2019 0 fexofenadine (KERI) 60 mg tablet Take 1 tablet (60 mg total) by mouth 2 (two) times a day 20 tablet 08/20/2019 0 HYDROcodone-acetami nophen (NORCO) 5-325 mg per tabletIndications:P ain Take 1 tablet by mouth every 4 (four) hours as needed for pain (1 tablet for mild to moderate pain or 2 tablets for severe pain) Do not exceed 8 tablets/day. 12 tablet 09/28/2019 0 hydrOXYchloroQUINE (PLAQUENIL) 200 mg tabletIndications:S ystemic Lupus Erythematosus Take 1 tablet (200 mg total) by mouth nightly 90 tablet 10/15/2019 0 hydrOXYzine (ATARAX) 25 mg tabletIndications:U rticaria Take 1 tablet (25 mg total) by mouth every 6 (six) hours 12 tablet 08/20/2019 0 ketorolac (TORADOL) 10 mg tablet Take 10 mg by mouth every 6 (six) hours as needed for pain 0 levETIRAcetam (KEPPRA) 500 mg tablet Take 1 tablet (500 mg total) by mouth 2 (two) times a day 50 tablet 3 09/19/2019 0 multivitamin capsule Take 1 capsule by mouth daily 1 omeprazole (PriLOSEC) 20 mg capsule Take 20 mg by mouth daily 06/21/2019 1 ondansetron (ZOFRAN) 4 mg tablet Take 1 tablet (4 mg total) by mouth every 8 (eight) hours as needed for nausea or vomiting 20 tablet 10/03/2019 1 predniSONE (DELTASONE) 1 mg tabletIndications:C urrent chronic use of systemic steroids Take 1 tablet every day in addition to 10 mg for total of 11 mg daily. 90 tablet 1 11/05/2019 0 predniSONE (DELTASONE) 5 mg tablet Take 2.5 tablets (12.5 mg) by mouth daily 74 tablet 2 09/10/2019 0 prochlorperazine (COMPAZINE) 10 mg tablet Take 1 tablet (10 mg total) by mouth every 6 (six) hours as needed for nausea or vomiting 30 tablet 10/03/2019 0 traZODone (DESYREL) 150 mg tabletIndications:t akes on 75mg Take 150 mg by mouth nightly 0 documented as of this encounter Discharge Disposition Disposition Code Departure Means Destination Left Against Medical Advice documented in this encounter ED Notes * Megan Torres, KINGA - 11/07/2019 9:31 AM CDT HPI Chief Complaint Patient presents with ??? Nausea 29 y.o. year old female with PMHX Anemia Anxiety Asthma Chronic diarrhea Chronic kidney disease Depression Fibromyalgia Fibromyalgia Headache, tension-type Lupus (CMS/HCC) Migraine PONV (postoperative nausea and vomiting) 07/13/2015: Rheumatoid arthritis (CMS/HCC) Seizures (CMS/HCC); accompanied by self presents to ED with c/o Nausea, diarrhea, and dizziness Denies fever, chills, vomiting, SOB, CP, numbness, tingling. Pt had a bio-infusion 3 days ago for her lupus. Pt states approximately 12 hours after infusion nausea, diarrhea, and dizziness started. Pt has not taken OTC medication for relief of symptoms. Pt called infusion center and advised to come to ER. Denies other complaint at this time. Patient History Patient Active Problem List Diagnosis Date Noted ??? 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 Negative for chills and fever. HENT: Negative. Negative for ear pain and sore throat. Eyes: Negative for pain and visual disturbance. Respiratory: Negative. Negative for cough and shortness of breath. Cardiovascular: Negative. Negative for chest pain and palpitations. Gastrointestinal: Positive for diarrhea and nausea. Negative for abdominal pain and vomiting. Genitourinary: Negative. Negative for dysuria and hematuria. Musculoskeletal: Negative. Negative for arthralgias and back pain. Skin: Negative. Negative for color change and rash. Neurological: Positive for dizziness. Negative for seizures and syncope. Psychiatric/Behavioral: Negative. All other systems reviewed and are negative. Physical Exam ED Triage Vitals [11/07/19 0858] Temp Pulse Resp BP SpO2 36.4 ??C (97.5 ??F) 96 18 127/79 99 % Temp src Heart Rate Source Patient Position BP Location FiO2 (%) Temporal -- -- -- -- Physical Exam Vitals signs and nursing note reviewed. Constitutional: General: She is awake. She is not in acute distress. Appearance: Normal appearance. She is well-developed. She is not ill-appearing, toxic-appearing or diaphoretic. HENT: Head: Normocephalic and atraumatic. Right Ear: Hearing and external ear normal. Left Ear: Hearing and external ear normal. Nose: Nose normal. Mouth/Throat: Lips: [place]. Mouth: Mucous membranes are moist. Eyes: General: Lids are normal. Conjunctiva/sclera: Conjunctivae normal. Neck: Musculoskeletal: Full passive range of motion without pain, normal range of motion and neck supple. Cardiovascular: Rate and Rhythm: Normal rate and regular rhythm. Pulses: Normal pulses. No decreased pulses. Heart sounds: Normal heart sounds. No murmur. Pulmonary: Effort: Pulmonary effort is normal. No respiratory distress. Breath sounds: Normal breath sounds and air entry. No stridor, decreased air movement or transmitted upper airway sounds. No decreased breath sounds, wheezing, rhonchi or rales. Abdominal: General: Bowel sounds are normal. There is no distension. Palpations: Abdomen is soft. Tenderness: There is no abdominal tenderness. There is no guarding. Skin: General: Skin is warm. Capillary Refill: Capillary refill takes less than 2 seconds. Neurological: General: No focal deficit present. Mental Status: She is alert, oriented to person, place, and time and easily aroused. Psychiatric: Attention and Perception: Attention normal. Mood and Affect: Mood normal. Speech: Speech normal. Behavior: Behavior normal. Behavior is cooperative. Thought Content: Thought content normal. Judgment: Judgment normal. [facility] ED Course as of Nov 06 942 Time: 11/06 932 Comment: Pt no longer wanted to be evaluated in ER. Pt walked out of ER unassisted. AMA: Carito Rausch patient refuses additional testing and evaluation. The patient understands the risks of refusal, which include the potential for permanent disability or possibly . The patient is A & O x 4, clearly understands the meaning of leaving here against medical advice , and in no way appears to be incompetent. Carito Rausch is able to verbalize in own words understanding of the decision to leave against medical advice. The patient has been clearly instructed that should change her mind regarding this decision, she is certainly welcome to return here for further evaluation as deemed necessary upon reassessment. I recommended following up with the manufacturing coordinator courtney as possible. Carito Rausch understands and agrees. Disposition: Left Against Medical Advice By: Megan Torres NP Final diagnoses: Nausea Dizziness Diarrhea, unspecified type Megan Torres NP 11/07/1941 Cosigned by Svetlana Samano MD at 11/07/2019 3:10 PM CDT * Christina Bal RN - 11/07/2019 8:56 AM CDT Pt to the ED with complaints of N/V and itching since her infusion for Lupus two days ago, states she had 6 episodes of emesis yesterday, none today, also complaining of dizziness with standing. documented in this encounter Plan of Treatment Not on file documented as of this encounter Visit Diagnoses Diagnosis Nausea- Primary Nausea alone Dizziness Dizziness and giddiness Diarrhea, unspecified type documented in this encounter Active and Recently Administered Medications Orders Medications Ordered That [facility] [place] [place] ht Not Have Been Administered Count Last Ordered Date First Ordered Date ondansetron (ZOFRAN) injection 4 mg 1 11/06 sodium chloride 0.9% bolus 1,000 mL 1 11/06 documented in this encounter Care Teams Assurance Senior Relationship Specialty [place] [address] [address] [place] [address] PCP - General 07/04/19 [place] [address] [address] [place] [address] 11/16/18 documented as of this encounter
--- OUTSIDE RECORDS SUMMARY | 2024-02-24 20:12 | XMS_ITS | Encounter Summary ---
Author Organization [facility] Address [address] [place] [address] Phone Care Team Providers Care Grain Ii Farmworker Name Role Phone Huseyin Dangelo MD Unavailable [phone] Brian Mon MD Primary Care Provider + Reason for Visit * Reason Onset Date Comments Case Management- Basic Needs 11/20/2019 Encounter Details Date Type Department Care Team (Late st Contact Info) Description 11/21/2019 Documentation [facility] Hematology [address] [facility] 7th [place] [address] [place] [address] Raji Johnson, [facility] [address] [place] [address] Case Management- Basic Needs Social History Tobacco Use Types Packs/Day Years [...] as of this encounter Progress Notes * AlexRaji, VESNA - 11/21/2019 3:54 PM CDT SW met with pt per communication barriers. Per pt, she is feeling better and her needs have significantly changed. Pt apologized for her recent behaviors. SW worked with pt to develop connection between feeling ill and how it can impact our perspective, citing how she felt like things were way worse than they are. Attempted to create a plan with pt if she feels like this again of how to maintain appropriate communication with staff. Pt acknowledged that during times of physical illness she gets overwhelmed. Ptagreed to work closely with SW during these times to work on breaking down tasks into smaller, moreattainable tasks. SW to f/u with pt re: insurance next week. Raji Pacheco VESNA Johnson 11/20/2019 04:21 PM [phone] documented in this encounter Plan of Treatment Not on file documented as of this encounter Visit Diagnoses Not on filedocumented in this encounter Care Teams Grain Ii Farmworker Relationship Specialty [place] [address] [address] PCP - General 07/04/19 [place] [address] [address] [address] 11/16/18 documented as of this encounter
--- OUTSIDE RECORDS SUMMARY | 2024-02-24 20:12 | XMS_ITS | Encounter Summary ---
Author Organization [facility] Address [address] [place] [address] Phone Care Team Providers Care Free Lance Artist Name Role Phone Huseyin Dangelo MD Unavailable [phone] Brian Mon MD Primary Care Provider + Encounter Details Date Type Department Care Team (Late st Contact Info) Description 11/07/2019 Telephone [facility] Rheumatology [address] [facility] 5th [place] [address] [place] [address] Krista Granger CMA Social History Tobacco Use Types Packs/Day [...] Telephone Encounter - Nolvia Ibarra MD - 11/10/2019 9:29 AM CDT prince Sommers for reaching out to her. This is Dr Delarosa's patient that is why I had the oncall fellow call her since I don't know this patient. If she doesn't feel better she may need to be seen by the oncall fellow in the fellow's clinic unless I have openings. (if I do I am more than happy to see her) * Telephone Encounter - Jt Hines DO - 11/07/2019 12:01 PM CDT Called patient back. She left the ER because she was concerned that they didn't know anything aboutBenlysta - she was at the [facility] ER. She is home now and says that her blood pressure was fine there and they were going to give her IV fluids but she left because she was concerned about their unfamiliarity with the Benlysta. She tells me her diarrhea and N/V have stopped since starting on Zofran and Lomotil. She has minimal appetite at this time, muscle cramps, and dizziness (which was present before ever receiving the Benlysta). She also sent pictures of a rash on her left side and leg which I reviewed - she said the rash is flat, not itchy, and not painful. I recommended to eat bland foods and drink plenty of water as tolerated, and she thinks she can tolerate this. If she develops increased lightheadedness or inability to tolerated PO intake she shouldreturn to the ER for evaluation and possibly IV hydration. I For her rash, I am going to send some topical steroid for it and I instructed her to let us know at her follow up with Dr. Ibarra if not getting better. Unclear etiology at this time. She also had numerous questions about her medications, namely her vitamin D and ferrous gluconate. I told her it was safe to take these, but the ferrous gluconate may upset her stomach so she should hold this if she notices this is an issue. * Telephone Encounter - Krista Granger CMA - 11/07/2019 9:[address] Hines, Please call this patient * Telephone Encounter - Nolvia Ibarra MD - 11/07/2019 9:51 AM CDT Please have the field control inspector fellow give her a call and discuss * Telephone Encounter - Krista Granger CMA - 11/07/2019 9:27 AM CDT Patient called and said she is having vomiting and diarrhea and dizzy since 2am on Sunday.She had her Benlysta infusion on Sunday. The ER told her they know nothing about biologics so she is waiting to talk to the airplane pilot supervisor. She would like a call back to let her know what to do. documented in this encounter Plan of Treatment Not on file documented as of this encounter Visit Diagnoses Not on filedocumented in this encounter Care Teams Free Lance Artist Relationship Specialty [place] [address] [address] [address] PCP - General 07/04/19 [place] [address] [address] [address] 11/16/18 documented as of this encounter
--- OUTSIDE RECORDS SUMMARY | 2024-02-24 20:12 | XMS_ITS | Encounter Summary ---
Author Organization [facility] [employer] [facility] Address [address] [place] [address] Phone Care Team Providers Care Pharmaceutical Botanist Name Role Phone Huseyin Dangelo MD Unavailable [phone] Brian Mon MD Primary Care Provider + Reason for Visit * Episode Based Medications (Routine) - Closed Specialty Diagnoses / Procedures Referred By Contac t Referred To Contact Diagnoses Lupus Procedures UT BELIMUMAB INJECTION Carolina Delarosa MD [address] [place] [address] Phone: tel: fax: [facility] Infusion Therapy [address] [place] [address] [address] [place] [address] Phone: tel: Referral ID Status Reason Start Date Expiration Date Visits Re quested Visits Authorized [id number] Closed 09/18/2019 09/16/2020 15 15 Encounter Details Date Type Department Care Team (Late st Contact Info) Description 12/02/2019 1:30 PM CDT Infusion [facility]fusion Therapy [address] [place] [address] [address] [place] [address] Lupus (CMS/HCC) (Primary Dx) Social [...] Sign Reading Time Taken Comments Blood Pressure 118/80 12/02/2019 3:40 PM CDT Pulse 67 12/02/2019 3:40 PM CDT Temperature 36.7 ??C (98 ??F) 12/02/2019 1:26 PM CDT Respiratory Rate - - Oxygen Saturation - - Inhaled Oxygen Concentration - - Weight - - Height - - Body Mass Index - - documented in this encounter Progress Notes * Carito Guajardo, RN - 12/02/2019 1:30 PM CDT Pt here for Benlysta infusion. Pt denies any recent fevers or illness. PIV started and VSS. Infusion started. Pt instructed to ring coppola for any needs and verbalized understanding. Pt educated on 30 min wait as this is her 3rd infusion and agreed to stay. Infusion complete and pt tolerated well. documented in this encounter Plan of Treatment Not on file documented as of this encounter Visit Diagnoses Diagnosis Lupus- Primary Systemic lupus erythematosus documented in this encounter Administered Medications Inactive Administered Medications - up to 3 most recent administrations Medication Order MAR Action Action Date Dose Rate Site acetaminophen (TYLENOL) tablet 650 mg 650 mg, oral, Once, On Sun12/02/19 at 1400, For 1 dose, Give 30 minutes prior to infusion for infusion reaction prophylaxis.Indications:Lupus Given 12/02/2019 1:40 PM CDT 650 mg beliMUMAB (BENLYSTA) 720 mg in sodium chloride 0.9% 250 mL IVPB 720 mg, intravenous, at 250 mL/hr, Administer over 60 Minutes, Once, On Sun12/02/19 at 1430, For 1 dose, Initial Dose Please use non-filter tubing. Protect from light, Indications: Systemic Lupus ErythematosusIndications:Syste marie Lupus Erythematosus New Bag 12/02/2019 2:09 PM CDT 720 mg 250 mL/ hr diphenhydrAMINE (BENADRYL) tab/cap 25 mg 25 mg, oral, Once, On Sun12/02/19 at 1400, For 1 dose, Please order either PO or IV. DO NOT give both IV and PO. Please give 30 minutes prior to infusion for infusion reaction prophylaxis.Indications:Lupus Given 12/02/2019 1:40 PM CDT 25 mg ondansetron (ZOFRAN) injection 4 mg 4 mg, intravenous, Administer over 2 Minutes, Once, On Sun12/02/19 at 1400, For 1 dose, Give 30 minutes prior to infusion for infusion reaction prophylaxis.Indications:Lupus Given 12/02/2019 1:50 PM CDT 4 mg sodium chloride 0.9% flush 10 mL 10 mL, intravenous, As needed, line care, Starting on Sun12/02/19 at 1319, Flush pre and post IV catheter use.Indications:Lupus Given 12/02/2019 1:50 PM CDT 10 mL documented in this encounter Orders Nursing Count Last Ordered Date First Orde red Date DAILY WEIGHTS 1 12/02/2019 ONCBCN NURSING COMMUNICATION [id number] 2 1 PATIENT EDUCATION (SPECIFY) 1 12/02/2019 VITAL SIGNS PRE-INFUSION 1 12/02/2019 documented in this encounter Care Teams Pharmaceutical Botanist Relationship Specialty [place] [address] [address] [address] PCP - General 07/04/19 [place] [address] [address] [address] 11/16/18 documented as of this encounter
--- OUTSIDE RECORDS SUMMARY | 2024-02-24 20:12 | XMS_ITS | Encounter Summary ---
Author Organization [facility] Address [address] [place] [address] Phone Care Team Providers Care Editor Producer Name Role Phone Huseyin Dangelo MD Unavailable [phone] Brian Mon MD Primary Care Provider + Encounter Details Date Type Department Care Team (Late st Contact Info) Description 12/26/2019 Telephone [facility] [address] [facility] Advanced Medicine 6th [place] [address] [place] [address] Jorge Fernandes MD [address] [facility] [address] [place] [address] Social History Tobacco Use Types Packs/Day Years [...] Telephone Encounter - Stacy Perla RMA - 12/26/2019 5:15 PM CDT Reached out to patient to schedule surgery for 01/13/20, she does not feel well today and got covidtested. She will reach out to me next week with results and how to proceed documented in this encounter Plan of Treatment Not on file documented as of this encounter Visit Diagnoses Not on filedocumented in this encounter Care Teams Editor Producer Relationship Specialty [place] [address] [address] [facility] [address] [place] [address] PCP - General 07/04/19 [place] [address] [address] [facility] [address] [place] [address] 11/16/18 documented as of this encounter
--- OUTSIDE RECORDS SUMMARY | 2024-02-24 20:12 | XMS_ITS | Encounter Summary ---
Author Organization [facility] Address [address] [place] [address] Phone Care Team Providers Care Shingle Carrier Name Role Phone Huseyin Dangelo MD Unavailable [phone] Brian Mon MD Primary Care Provider + Encounter Details Date Type Department Care Team (Late st Contact Info) Description 12/24/2019 12:30 PM CDT Telemedicine [facility] Orthopaedic Surgery [address] [facility] 2nd Floor [address] [place] [address] Jorge Fernandes MD [address] [facility] 6A/6B[address] [place] [address] Carpal tunnel syndrome, right (Primary Dx) Social History Tobacco Use [...] as of this encounter Progress Notes * Jorge Fernandes MD - 12/24/2019 12:30 PM CDT Images from the original note were not included. Orthopaedic Surgery Telemedicine Follow Up CC: Follow-up of nerve conduction studies Subjective: This is a 29-year-old female with history of a volar laceration to her right distal forearm in October of last year. She underwent nerve repair by an outside physician, she had a failure of the repair and then had subsequent grafting with nerve wrap. Since then she has had persistent pain. A previous MRI demonstrate evidence of neuroma, at her last visit we discussed possible treatment options.Of note she has never had carpal tunnel release. Her main concern today is persistent pain, at and just distal to her incision. She was sent for nerve conduction studies to further evaluate her median nerve function, she returns today via telemedicine appointment discuss the results. Objective: Gen.: The patient is awake, alert and in no acute distress. Head: Normocephalic, atraumatic Eyes: Extraocular movements intact, sclerae anicteric Lungs: Nonlabored respirations on room air Cardiac: No evidence of cyanosis, clubbing or edema, fingertips are warm and well-perfused. Examination of the right wrist demonstrates well-healed oblique incision just proximal to the volarwrist crease. She has not had a previous carpal tunnel release. She is able to fire her extrinsic finger flexors. Minimal sensation in median nerve distribution. 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 A single motor unit was seen suggesting some degree of axonal continuity. Assessment and Plan: 1. History of right median nerve transection with subsequent repair and revision repair with nerve graft and wrap The nature of the clinical findings reviewed in detail with patient. We discussed her nerve conduction studies. I discussed with her that I do not think that revision surgery with nerve grafting would likely alleviate her pain, she is quite functional currently and is able to play softball and perform daily activities. However she is bothered by the scar, and what she feels is pain pressing down her nerve. Her request today is a carpal tunnel release. I think it is reasonable to consider carpaltunnel release given fact that she likely has some postoperative swelling and has a known neuroma. We discussed that additional surgery to include sural nerve graft would likely put her through quitea bit of surgery without any clear benefit. I think potential for a simple neurolysis is reasonable, although we will focus on the carpal tunnel release. She expressed understanding the above. Risks,benefits alternatives were discussed in detail, she would like to proceed with right carpal tunnel release. She is on medication for her lupus, her next dose is December 29, she stated that she would be cleared for surgery on January 12, therefore we will schedule surgery on January 12 to fit that window. Follow-up: 2 weeks after surgery This was a telemedicine visit with Carito anglin which took place via a real-time video connection (Zoom/similar). During the visit, I was located in the clinic and the patient was located at work. The session started at 12:25 and ended at 12:45. The patient has been informed that the visit may not be secure and acknowledged the information. I have explained the option of participating in a telephone or video visit during the [facility] public health emergency to the patient. After being given an opportunity to ask questions about and discuss this type of visit, the patient verbally consented to proceeding with the telephone/video visit.The patient understands that this service replaces an office visit and they may be billed and/or responsible for any applicable copayments. MD Jorge Winter M.D., M.Sc. Contact Center Representative, Department of Orthopaedic Surgery [facility] in [address] [place], [place] [address] documented in this encounter Plan of Treatment Not on file documented as of this encounter Visit Diagnoses Diagnosis Carpal tunnel syndrome, right- Primary Carpal tunnel syndrome documented in this encounter Historical Medications * This list may reflect changes made after this encounter. diclofenac sodium (VOLTAREN) 1 % gel APPLY 2 GRAMS TOPICALLY TO ARTHRITIS JOINTS 3 TIMES A DAY NEEDED 12/11/2019 1 valACYclovir (VALTREX) 500 mg tablet TAKE 1 TAB BY MOUTH 3 TIMES DAILY FOR 7 DAYS. 12/03/2019 11/08/202 1 added in this encounter Care Teams Shingle Carrier Relationship Specialty [place] [address] [address] [place] [address] PCP - General 07/04/19 [place] [address] [address] [place] [address] 11/16/18 documented as of this encounter
--- OUTSIDE RECORDS SUMMARY | 2024-02-24 20:12 | XMS_ITS | Encounter Summary ---
Author Organization [facility] Address [address] [place] [address] Phone Care Team Providers Care Paper Coating Machine Operator Name Role Phone Huseyin Dangelo MD Unavailable [phone] Brian Mon MD Primary Care Provider + Reason for Visit * Reason Onset Date Comments Med Management 12/30/2019 Encounter Details Date Type Department Care Team (Late st Contact Info) Description 12/30/2019 Telephone [facility] Rheumatology [address] [facility] Building [address] [place] [address] Nallely Griffiths CMA Med Management [...] Telephone Encounter - Nallely Griffiths CMA - 12/30/2019 9:37 AM CST Pt was scheduled for Benlysta today. She called yesterday stating she is very fatigue and tired. Advised patient to minimize non urgent daily activity to have with fatigue. Also with the weather change and starting a new infusion it could be possible to get some fatigue. Wanted to know if she couldget the infusion every 2 weeks and not monthly. Spent over 15 mins on the call discussing the medications. Pt called back to inform the office that she went to the urgent care and was started on a Z-Maximilian forPneumonia and Bronchitis. We advise notes be faxed. Pt will finish medication and wait 1 week before next infusion. Ok to resume if no S/S of infection. 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
--- OUTSIDE RECORDS SUMMARY | 2024-02-24 20:12 | XMS_ITS | Encounter Summary ---
Author Organization [facility] Address [address] [place] [address] Phone Care Team Providers Care Lcpc Name Role Phone Huseyin Dangelo MD Unavailable [phone] Brian Mon MD Primary Care Provider + Encounter Details Date Type Department Care Team (Late st Contact Info) Description 11/12/2019 Telephone [facility] Orthopaedic Surgery [address] [facility] 2nd Floor [address] [place] [address] Jorge Fernandes MD [address] [facility] [address] [place] [address] Social History Tobacco Use Types [...] Telephone Encounter - Stacy Perla RMA - 11/12/2019 8:29 AM CDT Patient called the exchange last night to have her EMG rescheduled as she had to cancel it due to her own schedule. documented in this encounter Plan of Treatment Not on file documented as of this encounter Visit Diagnoses Not on filedocumented in this encounter Care Teams Lcpc Relationship Specialty [place] [address] [address] [address] PCP - General 07/04/19 [place] [address] [address] [address] 11/16/18 documented as of this encounter
--- OUTSIDE RECORDS SUMMARY | 2024-02-24 20:12 | XMS_ITS | Encounter Summary ---
Author Organization [facility] Address [address] [place] [address] Phone Care Team Providers Care Employee Benefits Coordinator Name Role Phone Huseyin Dangelo MD Unavailable [phone] Brian Mon MD Primary Care Provider + Encounter Details Date Type Department Care Team (Late st Contact Info) Description 12/29/2019 Documentation [facility] Rheumatology [address] [facility] Advanced Medicine 5th [place] [address] [place] [address] Tadeo Liriano MD [address] [place] [address] Social History Tobacco Use Types [...] Progress Notes * Tadeo Liriano MD - 12/29/2019 6:21 PM CST Patient called stating she received the diagnosis of pneumonia or bronchitis at an urgent care. Shesays she feels ok only has fatigue and mild cough and COVID- 19 was negative. She has a Benlysta infusion scheduled for tomorrow, I advised her that she reschedules this infusion after she's completedantibiotic treatment. She will call the infusion center in the morning Will forward this to primary outside rigger [employer] documented in this encounter Plan of Treatment Not on file documented as of this encounter Visit Diagnoses Not on filedocumented in this encounter Care Teams Employee Benefits Coordinator Relationship Specialty [place] [address] [address] [address] PCP - General 07/04/19 [place] [address] [address] [address] 11/16/18 documented as of this encounter
--- OUTSIDE RECORDS SUMMARY | 2024-02-24 20:12 | XMS_ITS | Encounter Summary ---
Author Organization [facility] Address [address] [place] [address] Phone Care Team Providers Care Student Union Consultant Name Role Phone Huseyin Dangelo MD Unavailable [phone] Brian Mon MD Primary Care Provider + Encounter Details Date Type Department Care Team (Late st Contact Info) Description 12/26/2019 Documentation [facility] Rheumatology [address] [facility] Advanced Medicine 5th [place] [address] [place] [address] Tadeo Liriano MD [address] [place] [address] Social History Tobacco Use Types [...] Progress Notes * Tadeo Liriano MD - 12/26/2019 5:56 PM CDT Patient called complaining of fever of 100.0, chills, body aches, diarrhea, nausea. She was recently exposed to a co-worker with COVID -19. Se went to the emergency department today and was told thateverything looked okay. COVID -19 results are still pending. Patient will continue the 5 mg of prednisone, received Benlysta a couple of weeks ago and is due to get the next infusion on 12/29. Explained alarm symptoms and to go to the ED if symptoms worsen, and that if test is positive we will likely have to hold off on Benlysta infusion documented in this encounter Plan of Treatment Not on file documented as of this encounter Visit Diagnoses Not on filedocumented in this encounter Care Teams Student Union Consultant Relationship Specialty [place] [address] [address] [place] [address] PCP - General 07/04/19 [place] [address] [address] [place] [address] 11/16/18 documented as of this encounter
--- OUTSIDE RECORDS SUMMARY | 2024-02-24 20:12 | XMS_ITS | Encounter Summary ---
Author Organization [facility] Address [address] [place] [address] Phone Care Team Providers Care Claim Manager Name Role Phone Huseyin Dangelo MD Unavailable [phone] Brian Mon MD Primary Care Provider + Encounter Details Date Type Department Care Team (Late st Contact Info) Description 11/06/2019 Telephone [facility] Rheumatology [address] [facility] Advanced Medicine 5th [place] [address] [place] [address] Rishi Davis MD [address] [place] [address] Social History Tobacco Use Types [...] Telephone Encounter - Rishi Davis MD - 11/06/2019 8:49 PM CDT Received a call from Ms Rausch this evening with a chief compliant of GI disturbance in the form of nausea and vomiting. She states this has been ongoing since her Benlysta infusion 11/03 and now she feels light headed, mostly on standing. I expressed concern for these ongoing symptoms as she had first called about them two days ago. I explained I was worried about her being hypotensive and she told me she had been checking her blood pressure and it was normal. I explained that she might still be hypotensive, orthostatically and I advised her to visit the nearest ED to rule this out. I also expressed concern regarding the adequacy of her intake and she said she had been able to keep things down. She denies fever or other systemicsymptoms. I explained that there might be an underlying viral cause or something else that might bediscovered if she visited the ED, she will watch and wait tonight and if her symptoms persist by tomorrow she says she will go in. I offered some Zofran, she already has some and has been taking them at home. She will let us know if her symptoms persist or worsen. Rishi Davis MD 11/06/2019 8:54 PM documented in this encounter Plan of Treatment Not on file documented as of this encounter Visit Diagnoses Not on filedocumented in this encounter Additional Health Concerns Infection Onset Date Last Indicated Resolved Time COVID: Recovered Comment:Flag applied in error. Added based on recent COVID infection. 09/04/2019 10/15/2019 11/06/2019 11:15 AM CDT documented as of this encounter Care Teams Claim Manager Relationship Specialty [place] [address] [place] [address] PCP - General 07/04/19 [place] [address] [address] [place] [address] 11/16/18 documented as of this encounter
--- OUTSIDE RECORDS SUMMARY | 2024-02-24 20:12 | XMS_ITS | Encounter Summary ---
Author Organization [facility] Address [address] [place] [address] Phone Care Team Providers Care Maternity Nurse Name Role Phone Huseyin Dangelo MD Unavailable [phone] Brian Mon MD Primary Care Provider + Reason for Visit * Episode Based Medications (Routine) - Closed Specialty Diagnoses / Procedures Referred By Contac t Referred To Contact Diagnoses Lupus Procedures [place] BELIMUMAB INJECTION Carolina Delarosa MD [address] [place] [address] Phone: tel: fax: [facility] Infusion Therapy [address] [place] [address] [address] [place] [address] Phone: tel: Referral ID Status Reason Start Date Expiration Date Visits Re quested Visits Authorized [id number] Closed 09/18/2019 09/16/2020 15 15 Encounter Details Date Type Department Care Team (Late st Contact Info) Description 11/18/2019 1:30 PM CDT Infusion [facility] Infusion Therapy [address] [place] [address] [address] [place] [address] Lupus (CMS/HCC) (Primary Dx) Social [...] Reading Time Taken Comments Blood Pressure 125/85 11/18/2019 3:13 PM CDT Pulse 82 11/18/2019 3:13 PM CDT Temperature 36.4 ??C (97.5 ??F) 11/18/2019 1:26 PM CD T Respiratory Rate - - Oxygen Saturation - - Inhaled Oxygen Concentration - - Weight - - Height - - Body Mass Index - - documented in this encounter Progress Notes * Carito Guajardo, PRO - 11/18/2019 1:30 PM CDT Pt here for Benlysta infusion. Pt denies any recent fevers or illness. PIV started and VSS. Infusion started and pt instructed to ring coppola for any needs. Pt verbalized understanding. Pt educated on 30 min wait post infusion as this is her 2nd infusion. Pt agreed to stay. Infusion complete and pt [...] 650 mg 650 mg, oral, Once, On Sun11/18/19 at 1400, For 1 dose, Give 30 minutes prior to infusion for infusion reaction prophylaxis.Indications:Lupus Given 11/18/2019 1:40 PM CDT 650 mg beliMUMAB (BENLYSTA) 720 mg in sodium chloride 0.9% 250 mL IVPB 720 mg, intravenous, at 250 mL/hr, Administer over 60 Minutes, Once, On Sun11/18/19 at 1430, For 1 dose, Initial Dose Please use non-filter tubing. Protect from light, Indications: Systemic Lupus ErythematosusIndications:Syste marie Lupus Erythematosus New Bag 11/18/2019 2:06 PM CDT 720 mg 250 mL/ hr diphenhydrAMINE (BENADRYL) tab/cap 25 mg 25 mg, oral, Once, On Sun11/18/19 at 1400, For 1 dose, Please order either PO or IV. DO NOT give both IV and PO. Please give 30 minutes prior to infusion for infusion reaction prophylaxis.Indications:Lupus Given 11/18/2019 1:40 PM CDT 25 mg ondansetron (ZOFRAN) injection 4 mg 4 mg, intravenous, Administer over 2 Minutes, Once, On Sun11/18/19 at 1400, For 1 dose, Give 30 minutes prior to infusion for infusion reaction prophylaxis.Indications:Lupus Given 11/18/2019 1:45 PM CDT 4 mg sodium chloride 0.9% flush 10 mL 10 mL, intravenous, As needed, line care, Starting on Sun11/18/19 at 1321, Flush pre and post IV catheter use.Indications:Lupus Given 11/18/2019 1:45 PM CDT 10 mL documented in this encounter Orders Nursing Count Last Ordered Date First Orde red Date DAILY WEIGHTS 1 11/18/2019 ONCBCN NURSING COMMUNICATION [id number] 1 0 11/18/2019 PATIENT EDUCATION (SPECIFY) 1 11/18/2019 VITAL SIGNS PRE-INFUSION 1 11/18/2019 Appointment Requests Count Last Ordered Date Fi rst Ordered Date INFUSION APPT REQUEST 90 MIN 1 11/18/2019 documented in this encounter Care Teams Maternity Nurse Relationship Specialty [place] [address] [address] [address] PCP - General 07/04/19 [place] [address] [address] [place] [id number] 11/16/18 documented as of this encounter
--- OUTSIDE RECORDS SUMMARY | 2024-02-24 20:12 | XMS_ITS | Encounter Summary ---
Author Organization [facility] Address [address] [place] [address] Phone Care Team Providers Care Mine Inspector Federal Name Role Phone Huseyin Dangelo MD Unavailable [phone] Brian Mon MD Primary Care Provider + Encounter Details Date Type Department Care Team (Late st Contact Info) Description 01/26/2020 1:00 PM GSE MECHANIC Office Visit [facility] Rheumatology [address] [facility] Building [address] [place] [address] Carolina Delarosa MD [address] [place] [address] Lupus (CMS/HCC) (Primary Dx) Social [...] Reading Time Taken Comments Blood Pressure 131/82 01/26/2020 12:47 PM GSE MECHANIC Pulse 89 01/26/2020 12:47 PM GSE MECHANIC Temperature 36.4 ??C (97.5 ??F) 01/26/2020 12:[address] Respiratory Rate - - Oxygen Saturation - - Inhaled Oxygen Concentration - - Weight 78 kg (171 lb 14.4 oz) 01/26/2020 12:47 P M GSE MECHANIC Height 160 cm (5' 3 ) 01/26/2020 12:47 PM GSE MECHANIC Body Mass Index 30.45 01/26/2020 12:47 PM GSE MECHANIC documented in this encounter Progress Notes * Carolina Delarosa MD - 01/26/2020 1:00 PM CST PATIENT NAME: Carito Rausch : 1990 01/26/2020 HISTORY OF PRESENT ILLNESS: ia a 29 y.o. female with SLE. The patient underwent of spontaneous 2nd trimester [id number] years ago. She was previously healthy and [...] She also has a positive double-stranded DNA, NURSE INTERN antibody and a low C4 and C3 [...] spondylitis Personal history occasional marijuana use Interim I last saw her in August 2019, since then she has seen 1 of my colleagues in November of 2019. She shestarted Benlysta in October and has had 4 infusions so far. There was a 6 week gap between her infusion in November and December. Even then she notes that she is better with Benlysta. She is also taking hydroxychloroquine 200 mg a day and tolerating it well. She was seen by Endocrinology and diagnosed with adrenal insufficiency and is currently on prednisone 9 mg a day ALLERGIES: Allergies Allergen Reactions ??? Methylprednisolone Anaphylaxis [...] A DAYAS NEEDED, Disp: , Rfl: ??? ferrous gluconate 324 mg (37.5 mg of elemental iron) tablet, Take 1 tablet (324 mg total) by mouth 3 (three) times a day, Disp: 90 tablet, Rfl: 2 ??? hydrOXYchloroQUINE (PLAQUENIL) 200 mg tablet, TAKE 1 TABLET BY MOUTH NIGHTLY, Disp: 90 tablet, Rfl: 0 ??? multivitamin capsule, Take 1 capsule by mouth daily, Disp: , Rfl: ??? omeprazole (PriLOSEC) 20 mg capsule, Take 20 mg by mouth daily, Disp: , Rfl: ??? ondansetron (ZOFRAN) 4 mg tablet, Take 1 tablet (4 mg total) by mouth every 8 (eight) hours as needed for nausea or vomiting, Disp: 20 tablet, Rfl: 0 ??? predniSONE (DELTASONE) 10 mg tablet, Take 10 mg by mouth daily, Disp: , Rfl: ??? predniSONE (DELTASONE) 5 mg tablet, Take 1 tablet (5 mg) by mouth daily, Disp: 90 tablet, Rfl: 3 ??? Ventolin HFA 90 mcg/actuation inhaler, INHALE TWO PUFFS BY MOUTH EVERY FOUR HOURS NEEDED FORWHEEZING/COUGH, Disp: , Rfl: ??? ergocalciferol (VITAMIN D) 50,000 unit capsule, TAKE 1 CAPSULE BY MOUTH ONE TIME PER WEEK, Disp: , Rfl: ??? triamcinolone (KENALOG) 0.1 % cream, Apply topically 2 (two) times a day DO NOT USE ON FACE (Patient not taking: Reported on 01/26/2020), Disp: 30 g, Rfl: 0 ??? valACYclovir (VALTREX) 500 mg tablet, TAKE 1 TAB BY MOUTH 3 TIMES DAILY FOR 7 DAYS., Disp: , Rfl: PHYSICAL EXAM: Vitals BP 131/82 Pulse 89 Temp 36.4 ??C (97.5 ??F) Ht 160 cm (5' 3 ) Wt 78 kg (171 lb 14.4 oz) BMI 30.45 kg/m?? Physical Exam General examination patient looks cushingoid. She does not have a rash today. Joint examination is essentially within normal limits The no palpable cervical lymph nodes. She has 1 small oral ulcer. RS is clear to auscultation CVS S1-S2 is regular with no rub murmur or gallop LABORATORY DATA: Lab Results Component Value Date WBC 10.5 (H) 12/02/2019 HGB 12.5 12/02/2019 HCT 39.1 12/02/2019 MCV 90.3 12/02/2019 LABPLAT 316 12/02/2019 Lab Results Component Value Date AST 19 12/02/2019 ALT 12 12/02/2019 CREATININE 1.05 12/02/2019 Lab Results Component Value Date SEDRATE 19 09/11/2019 Lab Results Component Value Date CRP 6.6 09/11/2019 ASSESSMENT AND PLAN: SLE In conclusion this is a 29-year-old female with a diagnosis of lupus. She is doing much better since starting Benlysta. She has also had an improvement in a serologies. She should continue with infusions and continue with hydroxychloroquine 200 mg a day. Previously she was chronically on steroids for 2 years and we now know that she is adrenally insufficient. She is now being managed by an hair sample matcher and is taking prednisone under the guidance and is on currently at 9 mg /d She already had labs in November and they were significantly improved compared to before. We will doanother set of serologies today DISPOSITION: The patient will return follow up in 3 month s Carolina Delarosa MD MECHANIC documented in this encounter Plan of Treatment Not on file documented as of this encounter Results * (ABNORMAL) Protein / creatinine ratio, urine, random (01/27/2020 1:34 PM GSE MECHANIC) Protein, ur, quant 40.2 mg/dL ARPITA ROSADO Comment: Interpretive Data No reference range established. Current interpretive data was last revised 2018. Testing performed by: [facility], [address] [place] [address]., [id number] Creatinine Ur 80.9 mg/dL ARPITA ROSADO Comment: Interpretive Data No reference range established. Current interpretive data was last revised 2018. Testing performed by: [facility], [address] [place] [address]., [address] Protein/creatinin e ratio 496.9(H) 0.0 - 180.0 mg/g CR ARPITA BARNESCH Comment:Testing performed by : [facility], [address] [place] [address]., [address] Urine 01/27/2020 1:34 PM GSE MECHANIC 01/27/2020 9:52 PM GSE MECHANIC Carolina Delarosa MD LAB URINE ORDERABLES Final Result Performing Organization Address City/[facility]/ZIP Co de Phone Number [facility] [address] [employer] [place] [address] * C4 complement (01/26/2020 1:46 PM GSE MECHANIC) Complement C4 19 10 - 40 mg/dL ARPITA ROSADO Comment:Testing performed by : [facility], [address] [place] [address]., [id number] Blood specimen (specimen) 01/26/2020 1:46 PM GSE MECHANIC 01/26/2020 4:55 PM GSE MECHANIC Carolina Delarosa MD LAB BLOOD ORDERABLES Final Result [facility] [address] [facility] [place] [address] * Erythrocyte sedimentation rate (01/26/2020 1:46 PM GSE MECHANIC) Pathologist [facility] [place] Erythrocyte sedimentation rate 12 1 - 20 mm/hr ARPITA BARNES Blood specimen (specimen) 01/26/2020 1:46 PM GSE MECHANIC 01/26/2020 6:16 PM GSE MECHANIC Carolina Delarosa MD LAB BLOOD ORDERABLES Final Result Performing Organization Address [facility] de Phone Number [facility] [address] [facility] [place] [address] * (ABNORMAL) Anti-double stranded DNA antibodies (01/26/2020 1:46 PM GSE MECHANIC) [facility] dsDNA Ab 14.0(H) <=4.0 IUnits/mL [facility] Comment: Interpretive Data Negative: < or = 4 IUnits/mL Indeterminate: 5 - 9 IUnits/mL Positive: > or = 10 IUnits/mL Current interpretive data was last revised on 2016. Testing performed by: [facility], [address] [facility], [place]., [address] Blood specimen (specimen) 01/26/2020 1:46 PM GSE MECHANIC 01/26/2020 4:49 PM GSE MECHANIC Carolina Delarosa MD LAB BLOOD ORDERABLES Final Result Performing Organization Address [facility] de Phone Number [facility] [address] [facility] [place] [address] * CRP (acute phase) (01/26/2020 1:46 PM GSE MECHANIC) [facility] CRP 9.2 <=10.0 mg/L [facility] Blood specimen (specimen) 01/26/2020 1:46 PM GSE MECHANIC 01/26/2020 2:23 PM GSE MECHANIC Carolina Delarosa MD LAB BLOOD ORDERABLES Final Result Performing Organization Address [facility]/ZIP Co de Phone Number ARPITA MORANWCH [address] [address] [facility]. [place] [address] * C3 complement (01/26/2020 1:46 PM GSE MECHANIC) Complement C3 139 90 - 180 mg/dL CERNER BJWCH Comment:Testing performed by : [facility], [address] [facility], [place]., [address] Blood specimen (specimen) 01/26/2020 1:46 PM GSE MECHANIC 01/26/2020 4:55 PM GSE MECHANIC Carolina Delarosa MD LAB BLOOD ORDERABLES Final Result Performing Organization Address [facility] Co de Phone Number ARPITA MORANCH [address] [facility]. [place] [address] * Comprehensive metabolic panel (01/26/2020 1:46 PM GSE MECHANIC) Sodium 139 135 - 145 mmol/L CERNER [...] Alk phos 59 40 - 130 Units/L CERANNAMARIA BJWCH ALT 15 7 - 45 Units/L CERNER [facility] AST 23 10 - 45 Units/L CERANNAMARIA [facility] Blood specimen (specimen) 01/26/2020 1:46 PM GSE MECHANIC 01/26/2020 2:23 PM GSE MECHANIC Carolina Delarosa MD LAB BLOOD ORDERABLES Final Result Performing Organization Address City/State/[facility] Co de Phone Number ARPITA ROSADO [address] [facility]. [place] [address] * (ABNORMAL) CBC with auto differential (01/26/2020 1:46 PM GSE MECHANIC) Pathologist [facility] [place] WBC 10.9(H) 3.8 - 9.9 K/cumm [facility] Hgb 13.6 11.9 - 15.5 g/dL [facility] Hct 41.3 35.6 - 45.5 % BANNERANNAMARIA MORANWCH Plt 313 150 - 400 K/cumm [facility]ANNAMAR[facility]AN[facility] MPV 9.3 9.1 - 12.3 fL [facility] RBC 4.53 3.90 - 5.20 M/cumm BANNERANNAMARIA MORANWCH MCV 91 81 - 96 fL [facility]ANNERANNAMARIA M[facility]AN[facility] MCH 30.0 27.1 - 33.3 pg BANNERANNAMARIA MORANW MCHC 32.9 32.3 - 35.7 g/dL BANNERANNAMARIA MORANW RDW CV 13.5 11.1 - 14.9 % FRANCISCOANNAMARIA MORANWCH RDW SD 44.9 35.7 - 48.1 fL BANNERANNAMARIA MORANW Blood specimen (specimen) 01/26/2020 1:46 PM GSE MECHANIC 01/26/2020 1:46 PM GSE MECHANIC Carolina Delarosa MD LAB BLOOD ORDERABLES Final Result Performing Organization Address City/[facility] Co de Phone Number ARPITA BARNESCH [address] [facility] [place] [address] * (ABNORMAL) Vitamin D 25 hydroxy (01/26/2020 1:46 PM GSE MECHANIC) Vitamin D 25-OH 25(L) 30 - 80 ng/mL CERNER BJWCH Comment:Testing performed by : [facility], [address] [place]., [address] Blood specimen (specimen) 01/26/2020 1:46 PM GSE MECHANIC 01/26/2020 4:49 PM GSE MECHANIC Carolina Delarosa MD LAB BLOOD ORDERABLES Final Result Performing Organization Address [facility] de Phone Number ARPITA BARNESCH [address] [address] [place] [address] * (ABNORMAL) Urinalysis reflex to microscopic and culture Urine (01/26/2020 1:43 PM GSE MECHANIC) Color, ur Straw Yellow CERNER [facility] Clarity, [...] performed. CERNER BJW[facility] Urine 01/26/2020 1:43 PM GSE MECHANIC 01/26/2020 2:24 PM GSE MECHANIC Narrative CERNER [facility] - 01/26/2020 2:54 PM GSE MECHANIC ?? Urine pH is affected by diet, medications, systemic acid-base disturbances, and renal tubular function. ??pH may affect urinary stone formation. ??For example, urine pH below 6.0 may help reduce the tendency for calcium phosphate stones and pH greater than 6.0 may reduce the tendency for uric acid stone formation. Source: [facility] [employer]. Last revised 03-08-2017 us Carolina Delarosa MD LAB MICROBIOLOGY - GENERAL ORDERABLES Final Result Performing Organization Address City/State/ZIP Co ne Phone Number ARPITA [facility] [address] [facility] [place] [address] documented in this encounter Visit Diagnoses Diagnosis Lupus- Primary Systemic lupus erythematosus Lupus Systemic lupus erythematosus documented in this encounter Additional Health Concerns Infection Onset Date Last Indicated Resolved Time COVID: Suspected 01/19/2020 01/19/2020 02/02/2020 3:06 AM GSE MECHANIC documented as of this encounter Care Teams Mine Inspector Federal Relationship Specialty [place] [address] [address] [facility] [address] [place] [address] PCP - General 07/04/19 [place] [address] [address] [place] [address] 11/16/18 documented as of this encounter
--- OUTSIDE RECORDS SUMMARY | 2024-02-24 20:12 | XMS_ITS | Encounter Summary ---
Author Organization [facility] Address [address] [place] [address] Phone Care Team Providers Care Sales Engagement Manager Name Role Phone Huseyin Dangelo MD Unavailable [phone] Brian Mon MD Primary Care Provider + Reason for Visit * Reason Onset Date Comments Appointment 01/07/2020 Encounter Details Date Type Department Care Team (Late st Contact Info) Description 01/07/2020 Telephone [facility] Rheumatology [address] [facility] [address] [place] [address] Nallely Griffiths [facility] Appointment Social History Tobacco Use Types [...] Telephone Encounter - Nallely Griffiths CMA - 01/07/2020 2:52 PM CST Pt call for an appt and insurance questions. She is on Benlysta infusions and stated she maybe loosing her insurance. I stated if that happens she will need to call the [place] patient assistance and request to sign up for the program. They will send our office the information to complete and enroll her in the program. If she is unable to getassistance we will let Dr Delarosa know and she will give further advise on her treatment plan. Pt verbally understood information given. We also gave her the billing dept number to discuss any concerns related to billing for her infusion. ER VARNISHER documented in this encounter Plan of Treatment Not on file documented as of this encounter Visit Diagnoses Not on filedocumented in this encounter Care Teams Sales Engagement Manager Relationship Specialty [place] [address] [address] [facility] [address] [place] [address] PCP - General 07/04/19 [place] [address] [address] [facility] [address] [place] [address] 11/16/18 documented as of this encounter
--- OUTSIDE RECORDS SUMMARY | 2024-02-24 20:12 | XMS_ITS | Encounter Summary ---
Author Organization [facility] Healthcare Address [address] [place] [address] Care Team Providers Care Math And Sciences Department Chair Name Role Phone Huseyin Dangelo MD Unavailable Brian Mon MD Primary Care Provider + Encounter Details Date Type Department Care Team (Late st Contact Info) Description 12/02/2019 4:[address] [facility] [address] [place] [address] Systemic lupus erythematosus, unspecified SLE type, unspecified organ involvement status (CMS/HCC) Social History Tobacco Use Types Packs/Day [...] Diagnosis Comments ANTI-DOUBLE STRANDED DNA ANTIBODIES Routine 12/02/2019 4:14 PM CDT Systemic lupus erythematosus, unspecified SLE type, unspecified organ involvement status (CMS/HCC) EGFR Routine 12/02/2019 4:14 PM CDT Systemic lupus erythematosus, unspecified SLE type, unspecified organ involvement status (CMS/HCC) DIFFERENTIAL AUTO Routine 12/02/2019 4:1 4 PM CDT Systemic lupus erythematosus, unspecified SLE type, unspecified organ involvement status (CMS/HCC) C4 COMPLEMENT Routine 12/02/2019 4:14 PM CDT Systemic lupus erythematosus, unspecified SLE type, unspecified organ involvement status (CMS/HCC) URINALYSIS AND REFLEX TO MICROSCOPIC AND CULTURE Routine 12/02/2019 4:14 PM CDT Systemic lupus erythematosus, unspecified SLE type, unspecified organ involvement status (CMS/HCC) CBC WITH AUTO DIFFERENTIAL Routine 12/02/2019 4:14 PM CDT Systemic lupus erythematosus, unspecified SLE type, unspecified organ involvement status (CMS/HCC) PROTEIN / CREATININE RATIO, URINE, RANDOM Routine 12/02/2019 4:14 PM CDT Systemic lupus erythematosus, unspecified SLE type, unspecified organ involvement status (CMS/HCC) C3 COMPLEMENT Routine 12/02/2019 4:14 PM CDT Systemic lupus erythematosus, unspecified SLE type, unspecified organ involvement status (CMS/HCC) COMPREHENSIVE METABOLIC PANEL Routine 12/02/2019 4:14 PM CDT Systemic lupus erythematosus, unspecified SLE type, unspecified organ involvement status (CMS/HCC) documented in this encounter Results * eGFR (12/02/2019 4:14 PM CDT) [facility] eGFR 73 mL/min/1.7 3 m2 [facility] Comment: Interpretive Data Reference Interval Normal ?>/= 90 mL/min/1.73m2 Mildly decreased* ? 60 - 89 mL/min/1.73m2 Mildly to moderately decreased ?45 - 59 mL/min/1.73m2 Moderately to severely decreased ??30 - 44 mL/min/1.73m2 Severely decreased ?15 - 29 mL/min/1.73m2 Kidney Failure ?< 15 ??mL/min/1.73m2 *Relative to young adult level If -Mozambican multiply value by 1.16. Estimated glomerular filtration [...] was last reviewed 2015. Blood specimen (specimen) 12/02/2019 4:14 PM CDT 12/02/2019 5:30 PM CDT us Nolvia Ibarra MD LAB BLOOD ORDERABLES Final Result [facility] [address] [facility]. Department [place] [address] * (ABNORMAL) Differential, auto (12/02/2019 4:14 PM CDT) Neutrophil abs 9.3(H) 1.7 - 6.5 K/cumm [facility] Imm gran abs 0.0 0.0 - 0.1 K/cumm [facility] Lymphocyte abs 0.8 0.8 - 3.3 K/cumm [facility] Monocyte abs 0.3 0.2 - 0.8 K/cumm [facility] Eosinophil abs 0.0 0.0 - 0.5 K/cumm [facility] Basophil abs 0.0 0.0 - 0.1 K/cumm [facility] W Neutrophil pct 88.6 % [facility] Comment: Interpretive Data Percent cell count reference ranges are not reported, since discordance with absolute values may lead to misinterpretation of CBC data. Current Interpretive Data was last revised on 2017. Imm gran pct 0.4 % CERANNAMARIA ROSADO Comment: Interpretive Data Percent cell count reference ranges are not reported, since discordance with absolute values may lead to misinterpretation of CBC data. Current Interpretive Data was last revised on 2017. Lymphocyte pct 7.2 % [facility] Comment: Interpretive Data Percent cell count reference ranges are not reported, since discordance with absolute values may lead to misinterpretation of CBC data. Current Interpretive Data was last revised on 2017. Monocyte pct 3.2 % [facility] Comment: Interpretive Data Percent cell count reference ranges are not reported, since discordance with absolute values may lead to misinterpretation of CBC data. Current Interpretive Data was last revised on 2017. Eosinophil pct 0.3 % [facility] Comment: Interpretive Data Percent cell count reference ranges are not reported, since discordance with absolute values may lead to misinterpretation of CBC data. Current Interpretive Data was last revised on 2017. Basophil pct 0.3 % [facility] Comment: Interpretive Data Percent cell count reference ranges are not reported, since discordance with absolute values may lead to misinterpretation of CBC data. Current Interpretive Data was last revised on 2017. Blood specimen (specimen) 12/02/2019 4:14 PM CDT 12/02/2019 5:30 PM CDT Nolvia Ibarra MD LAB BLOOD ORDERABLES Final Result [facility] [address] [facility]. Department of Laboratories [place], [place] [id number] * (ABNORMAL) CBC with auto differential (12/02/2019 4:14 PM CDT) WBC 10.5(H) 3.8 - 9.9 K/cumm [facility] Hgb 12.5 11.9 - 15.5 g/dL [facility] Hct 39.1 35.6 - 45.5 % [facility] Plt 316 150 - 400 K/cumm [facility] MPV 10.1 9.1 - 12.3 fL [facility] RBC 4.33 3.90 - 5.20 M/cumm [facility] MCV 90.3 81.3 - 96.4 fL [facility] MCH 28.9 27.1 - 33.3 pg [facility] MCHC 32.0(L) 32.3 - 35.7 g/dL [facility] RDW CV 16.3(H) 11.1 - 14.9 % [facility] RDW SD 54.3(H) 35.7 - 48.1 fL [facility] NRBC abs 0.00 0.00 - 0.01 K/cumm [facility] Blood specimen (specimen) 12/02/2019 4:14 PM CDT 12/02/2019 5:30 PM CDT Nolvia Ibarra MD LAB BLOOD ORDERABLES Final Result [facility] [address] [facility] Department [place] [address] * (ABNORMAL) Comprehensive metabolic panel (12/02/2019 4:14 PM CDT) Sodium 140 135 - 145 mmol/L [facility] Potassium, pl 3.9 3.3 - 4.9 mmol/L [facility] Chloride 102 97 - 110 mmol/L [facility] CO2 22 22 - 32 mmol/L [facility] Anion gap 16(H) 2 - 15 mmol/L [facility] BUN 13 8 - 25 mg/dL [facility] Creatinine 1.05 0.60 - 1.10 mg/dL [facility] Glucose 89 70 - 199 mg/dL [facility] Comment: Interpretive Data Fasting glucose >/= [...] Calcium 9.5 8.5 - 10.3 mg/dL [facility] Bilirubin, total 0.2 0.1 - 1.2 mg/dL [facility] Protein, pl 7.0 6.5 - 8.5 g/dL [facility] Albumin 4.2 3.5 - 5.0 g/dL [facility] Alk phos 56 40 - 130 Units/L [facility] ALT 12 7 - 45 Units/L [facility] AST 19 10 - 45 Units/L [facility] Comment:Hemolyzed; result ma y be falsely elevated. Blood specimen (specimen) 12/02/2019 4:14 PM CDT 12/02/2019 5:30 PM CDT Nolvia Ibarra MD LAB BLOOD ORDERABLES Edited Result - Final [facility] [address] [facility] Department [place] [address] * (ABNORMAL) Anti-double stranded DNA antibodies (12/02/2019 4:14 PM CDT) dsDNA Ab 18.0(H) <=4.0 IUnits/mL [facility] Comment: Interpretive Data Negative: < or = 4 IUnits/mL Indeterminate: 5 - 9 IUnits/mL Positive: > or = 10 IUnits/mL Current interpretive data was last revised on 2016. Testing performed by: [facility], [address] [place] [address] Blood specimen (specimen) 12/02/2019 4:14 PM CDT 12/02/2019 10:14 PM CDT Nolvia Ibarra MD LAB BLOOD ORDERABLES Final Result Performing Organization Address [facility] de Phone Number [facility] [address] [facility] [employer] [place], [place] [id number] * C4 complement (12/02/2019 4:14 PM CDT) Complement C4 17 10 - 40 mg/dL [facility] Comment:Testing performed by : [facility], [address] [place] [address]., [address] Blood specimen (specimen) 12/02/2019 4:14 PM CDT 12/02/2019 10:46 PM CDT Nolvia Ibarra MD LAB BLOOD ORDERABLES Final Result Performing Organization Address [facility] de Phone Number [facility] [address] [employer] [facility] [employer] [place], [place] [id number] * C3 complement (12/02/2019 4:14 PM CDT) [facility] Complement C3 117 90 - 180 mg/dL [facility] Comment:Testing performed by : [facility], [address] [place] [address]., [address] Blood specimen (specimen) 12/02/2019 4:14 PM CDT 12/02/2019 10:46 PM CDT Nolvia Ibarra MD LAB BLOOD ORDERABLES Final Result Performing Organization Address [facility] de Phone Number [facility] [address] [employer] [facility] [place] [address] * Urinalysis reflex to microscopic and culture Urine (12/02/2019 4:14 PM CDT) Color, ur Straw Yellow [facility] Clarity, ur Clear Clear [facility] Specific gravity, ur 1.010 1.010 - 1.025 [facility] pH, urine 6.0 [facility] Protein, ur ql Negative Negative [facility] Glucose, ur ql Negative Negative [facility] Ketones, ur Negative Negative [facility] Bilirubin, ur Negative Negative [facility] Blood, ur Negative Negative [facility] Urobilinogen, ur 0.2 <2.0 mg/dL [facility] Nitrite, ur Negative Negative [facility] Leukocyte esterase, ur Negative Negative [facility] UA reflex comment Reflex conditions for microscopic UA and culture not met. [facility] Urine 12/02/2019 4:14 PM CDT 12/02/2019 5:30 PM CDT Narrative [facility] - 12/02/2019 8:26 PM CDT ?? Urine pH is affected by diet, medications, systemic acid-base disturbances, and renal tubular function. ??pH may affect urinary stone formation. ??For example, urine pH below 6.0 may help reduce the tendency for calcium phosphate stones and pH greater than 6.0 may reduce the tendency for uric acid stone formation. Source: [employer]. Last revised 03-08-2017 us Nolvia Ibarra MD LAB MICROBIOLOGY - GENERAL ORDERABLES Final Result [facility] [address] [facility]. Department [place] [address] * Protein / creatinine ratio, urine, random (12/02/2019 4:14 PM CDT) Protein, ur, quant 10.0 mg/dL [facility] Comment: Interpretive Data No reference range established. Current interpretive data was last revised 2018. Testing performed by: [facility], [address] [place] [address]., [address] Creatinine Ur 65.4 mg/dL [facility] Comment: Interpretive Data No reference range established. Current interpretive data was last revised 2018. Testing performed by: [facility], [address] [place] [address]., [address] Protein/creatinin e ratio 152.9 0.0 - 180.0 mg/g CR [facility] Comment:Testing performed by : [facility], [address] [facility], [place]., [address] Urine 12/02/2019 4:14 PM CDT 12/02/2019 8:50 PM CDT us Nolvia Ibarra MD LAB URINE ORDERABLES Final Result Performing Organization Address City/State/[facility] Co in Phone Number [facility] [address] [facility] Department [place] [address] documented in this encounter Visit Diagnoses Diagnosis Systemic lupus erythematosus, unspecified SLE type, unspecified organ involvement status (HCC) documented in this encounter Care Teams Math And Sciences Department Chair Relationship Specialty [place] [address] [address] [address] PCP - General 07/04/19 [place] [address] [address] [address] 11/16/18 documented as of this encounter
--- OUTSIDE RECORDS SUMMARY | 2024-02-24 20:12 | XMS_ITS | Encounter Summary ---
Author Organization [facility] Address [address] [place] [address] Phone Care Team Providers Care Refinery Pipeline Operator Name Role Phone Huseyin Dangelo MD Unavailable [phone] Brian Mon MD Primary Care Provider + Encounter Details Date Type Department Care Team (Late st Contact Info) Description 11/05/2019 Orders Only [facility] Endocrinology Metabolism and Lipid [address] [facility] Advanced Medicine 13th [place] [address] [place] [address] Etienne Hernandez, EMT Current chronic use of systemic steroids Social [...] Date End Date predniSONE (DELTASONE) 1 mg tabletIndications: Current chronic use of systemic steroids Take 1 tablet every day in addition to 10 mg for total of 11 mg daily. 90 tablet 1 11/05/2019 0 documented in this encounter Plan of Treatment Not on file documented as of this encounter Visit Diagnoses Diagnosis Current chronic use of systemic steroids documented in this encounter Discontinued Medications Medication Sig Discontinue Reason Start Date End Da te predniSONE (DELTASONE) 1 mg tabletIndications:Currlalo nt chronic use of systemic steroids Take as directed by MD. Tapering steroid dose. Other 11/03/2019 11/05/2019 documented as of this encounter Additional Health Concerns Infection Onset Date Last Indicated Resolved Time COVID: Recovered Comment:Flag applied in error. Added based on recent COVID infection. 09/04/2019 10/15/2019 11/06/2019 11:15 AM CDT documented as of this encounter Care Teams Refinery Pipeline Operator Relationship Specialty [place] [address] [address] [address] PCP - General 07/04/19 [place] [address] [address] [address] 11/16/18 documented as of this encounter
--- OUTSIDE RECORDS SUMMARY | 2024-02-24 20:12 | XMS_ITS | Encounter Summary ---
Author Organization [facility] [employer] [facility] Address [address] [place] [address] Phone Care Team Providers Care Reversing Mill Roller Name Role Phone Huseyin Dangelo MD Unavailable [phone] Brian Mon MD Primary Care Provider + Reason for Visit * Reason Onset Date Comments Follow-up 11/19/2019 Encounter Details Date Type Department Care Team (Late st Contact Info) Description 11/19/2019 Telephone [facility] Rheumatology [address] [facility] [address] [place] [address] Nallely Griffiths CMA Follow-up Social [...] Telephone Encounter - Nallely Griffiths CMA - 11/19/2019 10:12 AM CDT Pt request a call back. Wanted to inform the office that she went for her 2nd infusion. Stated after she received this infusion she felt GREAT. She want to continue with the infusion as advised. She is aware of her visit with Dr Ibarra tomorrow at [facility]. documented in this encounter Plan of Treatment Not on file documented as of this encounter Visit Diagnoses Not on filedocumented in this encounter Care Teams Reversing Mill Roller Relationship Specialty [place] [address] [address] [facility] [address] [place] [address] PCP - General 07/04/19 [place] [address] [address] [facility] [address] [place] [address] 11/16/18 documented as of this encounter
--- OUTSIDE RECORDS SUMMARY | 2024-02-24 20:12 | XMS_ITS | Encounter Summary ---
Author Organization [facility] Healthcare Address [address] [place] [address] Care Team Providers Care Supervisor Malted Milk Name Role Phone Huseyin Dangelo MD Unavailable [phone] Brian Mon MD Primary Care Provider + Encounter Details Date Type Department Care Team (Late st Contact Info) Description 01/18/2020 Patient Self-Triage [facility] Health[facility] [address] [place] [address] Mychart, Generic Provider [address] [place], [place] [id number] Social History Tobacco Use Types Packs/Day Years [...] filedocumented in this encounter Care Teams Supervisor Malted Milk Relationship Specialty [place] [address] [facility] [address] [place] [address] PCP - General 07/04/19 [place] [address] [address] 11/16/18 documented as of this encounter
--- OUTSIDE RECORDS SUMMARY | 2024-02-24 20:12 | XMS_ITS | Encounter Summary ---
Author Organization [facility] Address [address] [place] [address] Phone Care Team Providers Care Hr Director Name Role Phone Huseyin Dangelo MD Unavailable [phone] Brian Mon MD Primary Care Provider + Encounter Details Date Type Department Care Team (Late st Contact Info) Description 11/08/2019 Telephone [facility] Rheumatology [address] [facility] Advanced Medicine 5th [place] [address] [place] [address] Дмитрий Garcia MD [address] [place] [address] Social History Tobacco Use Types [...] Telephone Encounter - Дмитрий Garcia MD - 11/08/2019 12:55 PM CDT Returned patient's phone call. She reported worsening anxiety and depression symptoms since Benlysta infusion. She had history of generalized anxiety and currently being treated with Xanax 0.25mg PRNdaily by PCP, and she was treated with depression in lexapro until 1 month ago. She reported that since Benlysta infusion, her symptom has been worsening (more prominent with anxiety than depression). She reported Xanax helped with her symptoms and denied suicidal/homicial ideation currently. Instructed patient to increase Xanax to 0.5mg BID as needed for symptom control and inform PCP office. Instructed patient to go to local ED if she started to have suicidal/homical ideations. Patient requested to see psychiatry at [facility] for management of her depression. Will place psychiatry referral documented in this encounter Plan of Treatment Not on file documented as of this encounter Visit Diagnoses Diagnosis Depression, unspecified depression type- Primary documented in this encounter Care Teams Hr Director Relationship Specialty [place] [address] [address] [address] PCP - General 07/04/19 [place] [address] [address] [place] [address] 11/16/18 documented as of this encounter
--- OUTSIDE RECORDS SUMMARY | 2024-02-24 20:12 | XMS_ITS | Encounter Summary ---
Author Organization [facility] [employer] [facility] Address [address] [place] [address] Phone Care Team Providers Care Advanced Analytics Associate Name Role Phone Huseyin Dangelo MD Unavailable [phone] Brian Mon MD Primary Care Provider + Reason for Visit * Episode Based Medications (Routine) - Closed Specialty Diagnoses / Procedures Referred By Contac t Referred To Contact Diagnoses Lupus Procedures OR BELIMUMAB INJECTION Carolina Delarosa MD [address] [place] [address] Phone: tel: fax: [facility] Infusion Therapy [address] [place] [address] [address] [place] [address] Phone: tel: Referral ID Status Reason Start Date Expiration Date Visits Re quested Visits Authorized [id number] Closed 09/18/2019 09/16/2020 15 15 Encounter Details Date Type Department Care Team (Late st Contact Info) Description 01/13/2020 2:30 PM SENIOR LOSS CONTROL SPECIALIST Infusion [facility] Infusion Therapy [address] [place] [address] [address] [place] [address] Lupus (CMS/HCC) (Primary Dx) Social [...] Reading Time Taken Comments Blood Pressure 122/78 01/13/2020 4:10 PM SENIOR LOSS CONTROL SPECIALIST Pulse 81 01/13/2020 4:10 PM SENIOR LOSS CONTROL SPECIALIST Temperature 36.9 ??C (98.4 ??F) 01/13/2020 4:10 PM CS T Respiratory Rate - - Oxygen Saturation 96% 01/13/2020 3:44 PM SENIOR LOSS CONTROL SPECIALIST Inhaled Oxygen Concentration - - Weight - - Height - - Body Mass Index - - documented in this encounter Progress Notes * Carito Guajardo RN - 01/13/2020 2:30 PM CST Pt here for Benlysta infusion. Pt denies any recent fevers or illness. PIV started and VSS. Infusion started and pt instructed to ring coppola for any needs. Pt verbalized understanding Went into pt's room at 1610 to get end VS. Pt stated can we just stop my infusion now? I'm done with it. I feel hot and have a headache . Pt stated prior to the start of the infusion that she had a headache. Pt did not appear flushed and VSS. I informed the pt she had about 15 mins left and she stated she wanted to stop it early. Infusion stopped with approximately 25mls left per pt request. Infusion complete and pt ambulatory at baseline upon discharge. OR LOSS CONTROL SPECIALIST documented in this encounter Plan of Treatment Not on file documented as of this encounter Visit Diagnoses Diagnosis Lupus- Primary Systemic lupus erythematosus documented in this encounter Administered Medications Inactive Administered Medications - up to 3 most recent administrations Medication Order MAR Action Action Date Dose Rate Site acetaminophen (TYLENOL) tablet 650 mg 650 mg, oral, Once, On Sun01/13/20 at 1500, For 1 dose, Give 30 minutes prior to infusion for infusion reaction prophylaxis.Indications:Lupus Given 01/13/2020 2:45 PM SENIOR LOSS CONTROL SPECIALIST 650 mg beliMUMAB (BENLYSTA) 720 mg in sodium chloride 0.9% 250 mL IVPB 720 mg, intravenous, at 250 mL/hr, Administer over 60 Minutes, Once, On Sun01/13/20 at 1530, For 1 dose, Maintenance Dose Please use non-filter tubing. Protect from light, Indications: Systemic Lupus ErythematosusIndications:Syste marie Lupus Erythematosus New Bag 01/13/2020 3:10 PM SENIOR LOSS CONTROL SPECIALIST 720 mg 250 mL/ hr diphenhydrAMINE (BENADRYL) tab/cap 25 mg 25 mg, oral, Once, On Sun01/13/20 at 1500, For 1 dose, Please order either PO or IV. DO NOT give both IV and PO. Please give 30 minutes prior to infusion for infusion reaction prophylaxis.Indications:Lupus Given 01/13/2020 2:45 PM SENIOR LOSS CONTROL SPECIALIST 25 mg ondansetron (ZOFRAN) injection 4 mg 4 mg, intravenous, Administer over 2 Minutes, Once, On Sun01/13/20 at 1500, For 1 dose, Give 30 minutes prior to infusion for infusion reaction prophylaxis.Indications:Lupus Given 01/13/2020 2:50 PM SENIOR LOSS CONTROL SPECIALIST 4 mg sodium chloride 0.9% flush 10 mL 10 mL, intravenous, As needed, line care, Starting on Sun01/13/20 at 1428, Flush pre and post IV catheter use.Indications:Lupus Given 01/13/2020 2:50 PM SENIOR LOSS CONTROL SPECIALIST 10 mL documented in this encounter Orders Nursing Count Last Ordered Date First Orde red Date DAILY WEIGHTS 01/13/2020 ONCBCN NURSING COMMUNICATION [id number] 2 1 03/14/2019 PATIENT EDUCATION (SPECIFY) 1 01/13/2020 VITAL SIGNS PRE-INFUSION 1 01/13/2020 Appointment Requests Count Last Ordered Date Fi rst Ordered Date INFUSION APPT REQUEST 90 MIN 1 03/19/2020 documented in this encounter Care Teams Advanced Analytics Associate Relationship Specialty [place] [address] [address] [place] [address] PCP - General 07/04/19 [place] [address] [address] [place] [address] 11/16/18 documented as of this encounter
--- OUTSIDE RECORDS SUMMARY | 2024-02-24 20:12 | XMS_ITS | Encounter Summary ---
Author Organization [facility] Address [address] [place] [address] Phone Care Team Providers Care Dispatcher Service Name Role Phone Huseyin Dangelo MD Unavailable Brian Mon MD Primary Care Provider + Encounter Details Date Type Department Care Team (Latest Contact Info) Description 11/20/2019 3:00 PM CDT Office Visit [facility] Rheumatology 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 Social History Tobacco Use Types Packs/Day Years [...] Reading Time Taken Comments Blood Pressure 135/86 11/20/2019 3:03 PM CDT Pulse 72 11/20/2019 3:03 PM CDT Temperature 36.5 ??C (97.7 ??F) 11/20/2019 3:03 PM CD T Respiratory Rate - - Oxygen Saturation - - Inhaled Oxygen Concentration - - Weight 78.7 kg (173 lb 6.4 oz) 11/20/2019 3:03 P M CDT Height - - Body Mass Index 31.72 11/11/2019 2:01 PM CDT documented in this encounter Patient Instructions * Patient Instructions* Nolvia Ibarra MD - 11/20/2019 3:00 PM CDT Restart hydroxychloroquine 100mg daily if no worsening of dizziness, diarrhea after 2 weeks then increase to 200mg daily Continue prednisone 10mg daily and taper per endo Dr Fernandez Take calcium with vit D twice daily Sunscreen SPF 50 Exercise daily for at least 10 min : yoga ,pilate, ti chi, resistence bands Good sleep hygiene F/u in 3-4 months documented in this encounter Progress Notes * Nolvia Ibarra MD - 11/20/2019 3:00 PM CDT Subjective/Objective Patient ID: Carito Rausch is a 29 y.o.Whitefemale. Patient of Dr. Delarosa's Patient with SLE ~ 3 years ago with h/o 2 miscarriages, joint pains, myalgias, fatigue, dizziness, pleurisy, oral ulcers, malar rash. She was last seen by Dr Delarosa 09/01/2019 at that time she was already on HCQ 200mg daily for 7 months. She was on prednisone 10mg AM and 2.5mg daily. She was on cellcept for renal disease but has been off 2 years. She was on AZA for her joints (she thinks) but stopped soon after starting because of dizziness and nausea . Since the last visit she has called our office multiple times at various times of the day includingafter hours. She called us after the first infusion because she was vomiting, increased fatigue, dizzy but we reassured her that it was not the medication. She received her 2nd infusion sunday and feels like it is working. She stopped HCQ 200mg because of the dizziness and feels the dizziness was little better. She also had vomiting and diarrhea which is better on HCQ. She had vomiting day after infusion. She had tapered on her prednisone to10mg daily She feels the joints are better and can run. She has better energy. She feels her muscles are better. Review of Systems Constitutional: Positive for fatigue. Negative for appetite change, chills, diaphoresis, fever and unexpected weight change. HENT: Negative for congestion, ear pain, facial swelling, hearing loss, mouth sores, nosebleeds, rhinorrhea, sinus pressure, sinus pain, sore throat, trouble swallowing and voice change. Nasal ulcers none Eyes: Negative for photophobia, pain, redness, itching and visual disturbance. Respiratory: Negative for cough, chest tightness, shortness of breath and wheezing. Cardiovascular: Negative for chest pain. Gastrointestinal: Positive for nausea and vomiting. Negative for abdominal pain, blood in stool, constipation and diarrhea. Genitourinary: Negative for genital sores and hematuria. Musculoskeletal: Negative for arthralgias, back pain, gait problem, joint swelling, myalgias, neck pain and neck stiffness. Skin: Negative for color change, pallor and rash. Malar rash none Raynaud yes stable Neurological: Positive for dizziness. Negative for syncope, speech difficulty, weakness, light-headedness and headaches. Psychiatric/Behavioral: Negative for decreased concentration, dysphoric mood and sleep disturbance.The patient is not nervous/anxious. Past Medical History: Diagnosis Date ??? Anemia [...] (three) times a day as needed ??? ergocalciferol (VITAMIN D) 50,000 unit capsule TAKE 1 CAPSULE BY MOUTH ONE TIME PER WEEK ??? ferrous gluconate 324 mg (37.5 mg of elemental iron) tablet Take 1 tablet (324 mg total) by mouth 3 (three) times a day 90 tablet 2 ??? multivitamin capsule Take 1 capsule by mouth daily ??? omeprazole (PriLOSEC) 20 mg capsule Take 20 mg by mouth daily ??? ondansetron (ZOFRAN) 4 mg tablet Take 1 tablet (4 mg total) by mouth every 8 (eight) hours as needed for nausea or vomiting 20 tablet 0 ??? predniSONE (DELTASONE) 1 mg tablet Take 1 tablet every day in addition to 10 mg for total of 11mg daily. 90 tablet 1 ??? predniSONE (DELTASONE) 5 mg tablet Take 1 tablet (5 mg) by mouth daily 90 tablet 3 ??? triamcinolone (KENALOG) 0.1 % cream Apply topically 2 (two) times a day DO NOT USE ON FACE 30 g0 ??? belimumab (Benlysta) auto-injector Inject 1 mL (200 mg total) under the skin every 7 days (Patient not taking: Reported on 11/20/2019) 4 Syringe 3 ??? hydrOXYchloroQUINE (PLAQUENIL) 200 mg tablet Take 1 tablet (200 mg total) by mouth nightly (Patient not taking: Reported on 11/20/2019) 90 tablet 0 No current facility-administered medications for this visit. Family History Problem Relation Age of Onset [...] Yes Types: Marijuana Comment: smoked last night Vitals BP 135/86 Pulse 72 Temp 36.5 ??C (97.7 ??F) Wt 78.7 kg (173 lb 6.4 oz) BMI 31.72 kg/m?? Physical Exam Vitals signs reviewed. Constitutional: Appearance: Normal appearance. She is well-developed. HENT: Head: Normocephalic and atraumatic. Mouth/Throat: Pharynx: No oropharyngeal exudate or posterior oropharyngeal erythema. Eyes: General: No scleral icterus. Right eye: No discharge. Left eye: No discharge. Extraocular Movements: Extraocular movements intact. Conjunctiva/sclera: Conjunctivae normal. Pupils: Pupils are equal, round, and reactive to light. Neck: Musculoskeletal: Normal range of motion and neck supple. Thyroid: No thyromegaly. Cardiovascular: Rate and Rhythm: Normal rate. Pulmonary: Effort: Pulmonary effort is normal. Abdominal: Palpations: Abdomen is soft. Musculoskeletal: Normal range of motion. General: No swelling, tenderness (T0S0 FROM no PROM, 5/5 strength no muscle tenderness or weaknesss), deformity or signs of injury. Right lower leg: No edema. Left lower leg: No edema. Lymphadenopathy: Cervical: No cervical adenopathy. Skin: General: Skin is warm and dry. Capillary Refill: Capillary refill takes less than 2 seconds. Coloration: Skin is not jaundiced or pale. Findings: No erythema or rash (tattoos but no concerning rashes). Neurological: Mental Status: She is alert and oriented to person, place, and time. Motor: No abnormal muscle tone. Psychiatric: Mood and Affect: Mood normal. Behavior: Behavior normal. Thought Content: Thought content normal. Judgment: Judgment normal. 11/13/2019 OSH records C3 117 C4 18 Ds DNA 22 ESR 16 CRP 4.11 Assessment: The primary encounter diagnosis was Systemic lupus erythematosus, unspecified SLE type, unspecifiedorgan involvement status ([facility]). 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 She feels much better since receiving her benlysta infusion which we will continue I have asked her to restart HCQ but at a lower dose (see below) and see if she can tolerate it. Shedeveloped dizziness the last time. Plan: Patient Instructions Restart hydroxychloroquine 100mg daily if no worsening of dizziness, diarrhea after 2 weeks then increase to 200mg daily Continue prednisone 10mg daily and taper per endo Dr Fernandez Take calcium with vit D twice daily Sunscreen SPF 50 Exercise daily for at least 10 min : yoga ,pilate, ti chi, resistence bands Good sleep hygiene F/u in 3-4 months Orders Placed This Encounter Procedures ??? Urinalysis reflex to microscopic and culture Urine Standing Status: Future Standing Expiration Date: 11/19/2020 ??? CBC with auto differential Standing Status: Future Standing Expiration Date: 05/19/2020 ??? Comprehensive metabolic panel Standing Status: Future Standing Expiration Date: 11/19/2020 ??? Anti-double stranded DNA antibodies Standing Status: Future Standing Expiration Date: 11/19/2020 ??? C4 complement Standing Status: Future Standing Expiration Date: 11/19/2020 ??? C3 complement Standing Status: Future Standing Expiration Date: 11/19/2020 ??? Protein / creatinine ratio, urine, random Standing Status: Future Standing Expiration Date: 11/19/2020 ??? POCT urinalysis dipstick Standing Status: Standing Number of Occurrences: 8 Standing Expiration Date: 11/19/2021 documented in this encounter Plan of Treatment Not on file documented as of this encounter Procedures Procedure Name Priority Date/Time Associated Diagnosis Comments POCT URINALYSIS DIPSTICK Routine 11/20/2019 3:18 PM CDT Systemic lupus erythematosus, unspecified SLE type, unspecified organ involvement status (CMS/HCC) documented in this encounter Results * Protein / creatinine ratio, urine, random (12/02/2019 4:14 PM CDT) Protein, ur, quant 10.0 mg/dL ARPITA ROSADO Comment: Interpretive Data No reference range established. Current interpretive data was last revised 2018. Testing performed by: [facility], [address] [place] [address], [place]., [address] Creatinine Ur 65.4 mg/dL ARPITA ROSADO Comment: Interpretive Data No reference range established. Current interpretive data was last revised 2018. Testing performed by: [facility], [address] [place] [address]., [id number] Protein/creatinin e ratio 152.9 0.0 - 180.0 mg/g CR CERNER [facility] Comment:Testing performed by : [facility], Formerly named [facility] [facility], [place]., [address] Urine 12/02/2019 4:14 PM CDT 12/02/2019 8:50 PM CDT us Nolvia Ibarra MD LAB URINE ORDERABLES Final Result Performing Organization Address [facility] Co de Phone Number ARPITA MORANE.[facility] [address] [facility] Department [place] [address] * Urinalysis reflex to microscopic and culture [...] ur Negative Negative CERNER [facility] Urobilinogen, ur 0.2 <2.0 mg/dL CERNER [facility] Nitrite, ur Negative Negative CERNER [facility] Leukocyte esterase, ur Negative Negative CERNER [facility] UA reflex comment Reflex conditions for microscopic UA and culture not met. ARPITA [facility] Urine 12/02/2019 4:14 PM CDT 12/02/2019 5:30 [...] tendency for uric acid stone formation. Source: Publish2. Last revised 03-08-2017 us Nolvia Ibarra MD LAB MICROBIOLOGY - GENERAL ORDERABLES Final Result Performing Organization Address [facility] Co de Phone Number [facility] [address] [facility]. [facility] [place] [address] * C3 complement (12/02/2019 4:14 PM CDT) [facility] Complement C3 117 90 - 180 mg/dL ARPITA BARNES Comment:Testing performed by : [facility], [address] [place] [address]., [address] Blood specimen (specimen) 12/02/2019 4:14 PM CDT 12/02/2019 10:46 PM CDT Nolvia Ibarra MD LAB BLOOD ORDERABLES Final Result Performing Organization Address [facility] Co de Phone Number [facility] [address] [facility] [place] [address] * C4 complement (12/02/2019 4:14 PM CDT) [facility] Complement C4 17 10 - 40 mg/dL [facility]ITA [facility] Comment:Testing performed by : [facility], [address] [place] [address]., [address] Blood specimen (specimen) 12/02/2019 4:14 PM CDT 12/02/2019 10:46 PM CDT Nolvia Ibarra MD LAB BLOOD ORDERABLES Final Result Performing Organization Address City/[facility] Co de Phone Number [facility] [address] [facility] [place] [address] * (ABNORMAL) Anti-double stranded DNA antibodies (12/02/2019 4:14 PM CDT) [facility] dsDNA Ab 18.0(H) <=4.0 IUnits/mL ARPITA MORANATUL Comment: Interpretive Data Negative: < or = 4 IUnits/mL Indeterminate: 5 - 9 IUnits/mL Positive: > or = 10 IUnits/mL Current interpretive data was last revised on 2016. Testing performed by: [facility], [address] [facility], [place]., [address] Blood specimen (specimen) 12/02/2019 4:14 PM CDT 12/02/2019 10:14 PM CDT us Nolvia Ibarra MD LAB BLOOD ORDERABLES Final Result [facility] [address] [facility] Department [place] [address] * (ABNORMAL) Comprehensive metabolic panel (12/02/2019 4:14 PM CDT) Sodium 140 135 - 145 mmol/L CERNER [facility] Potassium, pl 3.9 3.3 - 4.9 mmol/L C[facility] Chloride 102 97 - 110 mmol/L [facility] CO2 22 22 - 32 mmol/L [facility] Anion gap 16(H) 2 - 15 mmol/L C[facility]ER [facility] BUN 13 8 - 25 mg/dL [facility]ER [facility] Creatinine 1.05 0.60 - 1.10 mg/dL CERNER [facility] Glucose 89 70 - 199 mg/dL CERNER [facility] Comment: [...] us Nolvia Ibarra MD LAB BLOOD ORDERABLES Edited Result - Final Performing Organization Address [facility] Co de Phone Number ARPITA BARNES [address] [facility]. [place] [address] * (ABNORMAL) CBC with auto differential (12/02/2019 4:14 PM CDT) WBC 10.5(H) 3.8 - 9.9 K/cumm [facility]ANN[facility] Hgb 12.5 11.9 - 15.5 g/dL [facility] Hct 39.1 35.6 - 45.5 % [facility] Plt 316 150 - 400 K/cumm [facility] MPV 10.1 9.1 - 12.3 fL [facility] RBC 4.33 3.90 - 5.20 M/cumm [facility] MCV 90.3 81.3 - 96.4 fL [facility] MCH 28.9 27.1 - 33.3 pg [facility] MCHC 32.0(L) 32.3 - 35.7 g/dL [facility] RDW CV 16.3(H) 11.1 - 14.9 % [facility] RDW SD 54.3(H) 35.7 - 48.1 fL [facility] NRBC abs 0.00 0.00 - 0.01 K/cumm [facility] Blood specimen (specimen) 12/02/2019 4:14 PM CDT 12/02/2019 5:30 PM CDT us Nolvia Ibarra MD LAB BLOOD ORDERABLES Final Result Performing Organization Address City/[facility]/ZIP Co de Phone Number ARPITA ROSADO [address] [facility]. Department [place] [address] * POCT urinalysis dipstick (11/20/2019 3:18 PM CDT) Glucose, ur, POC Negative Negative mg/dL Bilirubin, ur, POC Negative Negative, Small, Moderate, Large Ketones, ur, POC Negative Negative Specific [place], POC 1.020 1.005 - 1.030 Blood, ur, POC Negative Negative pH, ur, POC 7.0 5.0 - 8.0 Protein, ur, POC Comment:30mg/dL Urobilinogen, urine, POC 0.2 0.2 - 1.0 mg/dL Nitrite, ur, POC Negative Negative Leukocytes, ur, POC Negative Negative Lot Number [id number] Urine 11/20/2019 3:18 PM CDT Nolvia Ibarra MD POINT OF CARE TEST ORDERABL ES Final Result documented in this encounter Visit Diagnoses Diagnosis Systemic lupus erythematosus, unspecified SLE type, unspecified organ involvement status (HCC)- Primary 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 Systemic lupus erythematosus, unspecified SLE type, unspecified organ involvement status (HCC) documented in this encounter Discontinued Medications Medication Sig Discontinue Reason Start Date End Da te albuterol (PROAIR RESPICLICK) 90 mcg/actuation inhalerIndications:Acute Asthma Attack Inhale 2 puffs every 6 (six) hours as needed for wheezing 11/20/2019 ALPRAZolam (XANAX) 0.25 mg tablet Take 1 tablet (0.25 mg total) by mouth nightly as needed for anxiety for up to 3 days 10/06/2019 11/20/2019 carBAMazepine (TEGretol) 100 mg chewable tabletIndications:Epilep sy undetermined as to focal or generalized (HCC) Take one tablet by mouth twice a day for one week, then 2 tablets twice a day 08/26/2019 11/20/[address] (DEPAKOTE) 250 mg EC tablet Take 250 mg by mouth 3 (three) times a day 09/21/2019 11/20/2019 escitalopram (LEXAPRO) 5 mg tablet Take 5 mg by mouth daily 11/20/2019 fexofenadine (KERI) 60 mg tablet Take 1 tablet (60 mg total) by mouth 2 (two) times a day 08/20/2019 11/20/2019 HYDROcodone-acetaminophe n (NORCO) 5-325 mg per tabletIndications:Pain Take 1 tablet by mouth every 4 (four) hours as needed for pain (1 tablet for mild to moderate pain or 2 tablets for severe pain) Do not exceed 8 tablets/day. 09/28/2019 11/20/2019 hydrOXYzine (ATARAX) 25 mg tabletIndications:Urtica annalise Take 1 tablet (25 mg total) by mouth every 6 (six) hours 08/20/2019 11/20/2019 ketorolac (TORADOL) 10 mg tablet Take 10 mg by mouth every 6 (six) hours as needed for pain 11/20/2019 acidophilus-pectin, citrus 100 million cell-10 mg capsule Take by mouth 11/20/2019 levETIRAcetam (KEPPRA) 500 mg tablet Take 1 tablet (500 mg total) by mouth 2 (two) times a day 09/19/2019 11/20/2019 prochlorperazine (COMPAZINE) 10 mg tablet Take 1 tablet (10 mg total) by mouth every 6 (six) hours as needed for nausea or vomiting 10/03/2019 11/20/2019 traZODone (DESYREL) 150 mg tabletIndications:takes on 75mg Take 150 mg by mouth nightly 11/20/2019 documented as of this encounter Care Teams Dispatcher Service Relationship Specialty [place] [address] [address] [address] PCP - General 07/04/19 [place] [address] [address] [address] 11/16/18 documented as of this encounter
--- OUTSIDE RECORDS SUMMARY | 2024-02-24 20:12 | XMS_ITS | Encounter Summary ---
Author Organization [facility] Address [address] [place] [address] Phone Care Team Providers Care Hydrator Name Role Phone Huseyin Dangelo MD Unavailable [phone] Brian Mon MD Primary Care Provider + Encounter Details Date Type Department Care Team (Late st Contact Info) Description 11/10/2019 Telephone [facility] Rheumatology [address] [facility] Medical Office [address] [place] [address] Nallely Griffiths CMA Social History Tobacco Use Types Packs/Day [...] Telephone Encounter - Nallely Griffiths CMA - 11/12/2019 9:59 AM CDT This sounds like a great plan. Given her anxiety she was questioning having reaction at home with the self injections. Given her history of multiple calls before, after and during business hours before starting the treatments Dr Delarosa felt it would be best to do infusions. We tried to start with the injections and get her set up with patient assistance due to no insurance a that time. After the patient received insurance Dr Delarosa moved forward with getting the infusion approved so patient can be in safe area incase of reactions. Please let me know if you need me to assist with anything. * Telephone Encounter - Nolvia Ibarra MD - 11/10/2019 10:07 PM CDT I have other patients who have also reported depression with benlysta We can either decrease the infusion by 50% or See if we can approve the subcutaneous injection Have her start SQ 200 mg MONTHLY initially * Telephone Encounter - Nallely Griffiths CMA - 11/10/2019 12:25 PM CDT Received multiple calls form the patient today and a Frankly Chat message. She s/w Dr Hoyos on Sat. Referral was placed per pt request. She stated the Benlysta was causing herdepression and anxiety to worsen after first dose las week. Patient stated at 2am on Sunday worsening depression and anxiety started. She was happy her was home during this time. I reviewedthe call she had with Dr Garcia that stated she denied S/S of suicide. I advise the pt to follow theinstructions of Dr Hoyos. If her S/S worsen to go to the nearest ED right away for evaluation. Pt was given the number to Psychiatry to call and follow up. She is aware the referral was placed over the weekend and records will need to be reviewed. Side note: Prior to this call pt called on 11/04 requesting to stop HCQS. She believed the HCQS and Benlysta was to much for her system and is the cause of the GI symptoms. I explained she has been on HCQS as a maintenance Lupus medication for awhile. It is unlikely due to the medication. Stated the only way to know if to hold it for 1-2 weeks max and update the office on symptoms. On the today's call pt stated she stopped HCQS for 1 night and felt a difference in her lupus and resumed the next day. She has her 2nd infusion 11/17 which she is concerned about. I explained as her Rheumatology care team we can offer treatment and care plans. We can not focus patients to continue with the plan if they're uncomfortable, have side effects or worsening symptoms. I strongly advise she make the final decision and keep her visit with Dr Ibarra to discuss concerns. She stated she will send a Frankly Chat message and would like me to forward this to the covering staff to advise what she should do regarding the next infusion. I will CC Dr Garcia, Dr Davis, Dr Hines and Dr Ibarra as an FYI. documented in this encounter Plan of Treatment Not on file documented as of this encounter Visit Diagnoses Not on filedocumented in this encounter Care Teams Hydrator Relationship Specialty [place] [id number] [address] [address] PCP - General 07/04/19 [place] [address] [address] [address] 11/16/18 documented as of this encounter
--- OUTSIDE RECORDS SUMMARY | 2024-02-24 20:13 | XMS_ITS | Encounter Summary ---
Author Organization [facility] Address [address] [place] [address] Care Team Providers Care Equipment Engineer Name Role Phone Huseyin Dangelo MD Unavailable Brian Mon MD Primary Care Provider + Encounter Details Date Type Department Care Team (Late st Contact Info) Description 09/24/[address] [facility] [address] [facility] [address] [place] [address] Shaina Bruno MA Social History Tobacco Use Types Packs/Day Years Used Date Smoking Tobacco: Every Day Cigarettes Last attempted to quit: 12/28/2018 Smokeless Tobacco: Never Alcohol Use Standard [...] encounter Miscellaneous Notes * Telephone Encounter - Shaina Bruno MA - 09/25/2019 2:01 PM CDT I called patient to let her know she needs to call the physician who ordered the MRI for results, she hung up the phone. * Telephone Encounter - Dilan Del Toro MD - 09/25/2019 10:01 AM CDT I did not order MRI. She should talk to physician who ordered the test. * Telephone Encounter - Shaina Bruno MA - 09/24/2019 3:05 PM CDT Patient would like MRI results, She said it depends on the MRI if she will keep her Sunday appt. Please advise documented in this encounter Plan of Treatment Not on file documented as of this encounter Visit Diagnoses Not on filedocumented in this encounter Additional Health Concerns Infection Onset Date Last Indicated Resolved Time Exposure, COVID-19 Comment:Added automatically based on COVID19 lab answers indicating exposure risk 09/11/2019 09/11/2019 09/26/2019 3:05 AM C DT documented as of this encounter Care Teams Equipment Engineer Relationship Specialty [place] [address] [address] [address] PCP - General 07/04/19 [place] [address] [address] [address] 11/16/18 documented as of this encounter
--- OUTSIDE RECORDS SUMMARY | 2024-02-24 20:13 | XMS_ITS | Encounter Summary ---
Author Organization [facility] Address [address] [facility] [address] [place] [address] Care Team Providers Care Oncology Transplant Network Manager Name Role Phone Huseyin Dangelo MD Unavailable [phone] Brian Mon MD Primary Care Provider + Encounter Details Date Type Department Care Team (Late st Contact Info) Description 10/03/2019 Orders Only [facility] Gastroenterology at [address] [place] [id number] Anneliese Alvarenga, ENVELOPE PRESS OPERATOR [address] [facility] [address] [address] Social History Tobacco Use Types Packs/Day Years [...] Refills Last Filled Start Date End Date prochlorperazine (COMPAZINE) 10 mg tablet Take 1 tablet (10 mg total) by mouth every 6 (six) hours as needed for nausea or vomiting 30 tablet 10/03/2019 0 ondansetron (ZOFRAN) 4 mg tablet Take 1 tablet (4 mg total) by mouth every 8 (eight) hours as needed for nausea or vomiting 20 tablet 10/03/2019 1 documented in this encounter Plan of Treatment Not on file documented as of this encounter Visit Diagnoses Not on filedocumented in this encounter Discontinued Medications Medication Sig Discontinue Reason Start Date End Da te ondansetron (ZOFRAN) 4 mg tablet Take 4-8 mg by mouth every 8 (eight) hours as needed Reorder 08/31/2019 10/03/2019 documented as of this encounter Care Teams Oncology Transplant Network Manager Relationship Specialty [place] [address] [address] [address] PCP - General 07/04/19 [place] [address] [address] [address] 11/16/18 documented as of this encounter
--- OUTSIDE RECORDS SUMMARY | 2024-02-24 20:13 | XMS_ITS | Encounter Summary ---
Author Organization [facility] Healthcare Address [address] [place] [address] Care Team Providers Care Speech And Language Clinician Name Role Phone Huseyin Dangelo MD Unavailable [phone] Brian Mon MD Primary Care Provider + Reason for Visit * Reason Comments Abdominal Pain pt states had had ep igastric pain since she woke up, dizziness Chest Pain Encounter Details Date Type Department Care Team (Late st Contact Info) Description 10/04/2019 2:18 PM CDT - 10/04/2019 5:03 PM CDT Emergency [facility] Emergency Department [address] [place], [place] [id number] Discharge Disposition: Left without being seen Social [...] Reading Time Taken Comments Blood Pressure 121/82 10/04/2019 1:35 PM CDT Pulse 91 10/04/2019 1:35 PM CDT Temperature 37 ??C (98.6 ??F) 10/04/2019 1:35 PM CDT Respiratory Rate 18 10/04/2019 1:35 PM CDT Oxygen Saturation 100% 10/04/2019 1:35 PM CDT Inhaled Oxygen Concentration - - Weight 74.8 kg (165 lb) 10/04/2019 1:35 PM CDT Height 160 cm (5' 3 ) 10/04/2019 1:35 PM CDT Body Mass Index 29.23 10/04/2019 1:35 PM CDT documented in this encounter Discharge Diagnoses Diagnosis Procedure and treatment not carried out due to patient leaving prior to being seen by health care provider - PROCEDURE AND TREATMENT NOT CARRIED OUT DUE TO PATIENT LEAVING PRIOR TO BEING SEEN BY HEALTH CARE MD documented in this encounter Medications at Time of Discharge acidophilus-pectin , citrus 100 million cell-10 mg capsule Take by mouth 0 albuterol (PROAIR RESPICLICK) 90 mcg/actuation inhalerIndications :Acute Asthma Attack Inhale 2 puffs every 6 (six) hours as needed for wheezing 0 ALPRAZolam (XANAX) 0.25 mg tablet Take 0.25 mg by mouth 3 (three) times a day as needed 1 belimumab (Benlysta) auto-injector Inject 1 mL (200 mg total) under the skin every 7 days 4 Syringe 3 07/23/2019 1 carBAMazepine (TEGretol) 100 mg chewable tabletIndications: Epilepsy undetermined as to focal or generalized [...] Take 5 mg by mouth daily 0 fexofenadine (KERI) 60 mg tablet Take 1 tablet (60 mg total) by mouth 2 (two) times a day 20 tablet 08/20/2019 0 HYDROcodone-acetam inophen (NORCO) 5-325 mg per tabletIndications: Pain Take 1 tablet by mouth every 4 (four) hours as needed for pain (1 tablet for mild to moderate pain or 2 tablets for severe pain) Do not exceed 8 tablets/day. 12 tablet 09/28/2019 0 hydroxychloroquine (PLAQUENIL) 200 mg tablet Take 100 mg by mouth nightly 0 hydrOXYzine (ATARAX) 25 mg tabletIndications: Urticaria Take 1 tablet (25 mg total) by [...] tablet Take 1 mg by mouth daily 0 predniSONE (DELTASONE) 5 mg tablet Take 2.5 tablets (12.5 mg) by mouth daily 74 tablet 2 09/10/2019 0 prochlorperazine (COMPAZINE) 10 mg tablet Take 1 tablet (10 mg total) by mouth every 6 (six) hours as needed for nausea or vomiting 30 tablet 10/03/2019 0 traZODone (DESYREL) 150 mg tabletIndications: takes on 75mg Take 150 mg by mouth nightly 0 documented as of this encounter Discharge Disposition Disposition Code Departure Means Destination Left without being seen documented in this encounter ED Notes * Esau Seaz RN - 10/04/2019 1:39 PM CDT pt states had had epigastric pain since she woke up, dizziness documented in this encounter Plan of Treatment Not on file documented as of this encounter Procedures Procedure Name Priority Date/Time Associated Diagnosis Comments ECG 12-LEAD STAT 10/04/2019 1:53 PM CDT documented in this encounter Results * ECG 12 lead (10/04/2019 1:53 PM CDT) 10/04/2019 1:53 PM CDT Narrative [facility] - 10/04/2019 6:43 PM CDT Vent Rate: 81 bpm RR Interval: 738 msec MD Interval: 131 msec QRS Duration: 78 msec QT Interval: 359 msec QTC Interval: 396 msec P-R-T [place]ometown: 33 - 29 - 15 degrees SINUS RHYTHM NORMAL ECG NO CHANGE COMPARED TO PRIOR TRACING Electronically Signed By: Anneliese Schroeder MD, [facility] us Keena Dickens MD ECG ORDERABLES Final Result [facility] documented in this encounter Visit Diagnoses Not on filedocumented in this encounter Care Teams Speech And Language Clinician Relationship Specialty [place] [address] [address] [facility] [address] [place] [address] PCP - General 07/04/19 [place] [address] [address] [facility] [address] [place] [address] 11/16/18 documented as of this encounter
--- OUTSIDE RECORDS SUMMARY | 2024-02-24 20:13 | XMS_ITS | Encounter Summary ---
Author Organization [facility] Address [address] [facility] [address] [place] [address] Care Team Providers Care Av Specialist Name Role Phone Huseyin Dangelo MD Unavailable [phone] Brian Mon MD Primary Care Provider + Encounter Details Date Type Department Care Team (Late st Contact Info) Description 09/25/2019 Telephone [facility] Gastroenterology at [address] [place] [phone] Migdalia Bruno MA Social History Tobacco Use Types [...] encounter Miscellaneous Notes * Telephone Encounter - Dang Denis MD - 09/25/2019 11:55 AM CDT She can use any medication [id number] for the diarrhea at this time. Please give the patient follow-up appointment in the office so I discussed with her her condition and see what other treatments she may need. * Telephone Encounter - Migdalia Bruno MA - 09/25/2019 11:37 AM CDT Pt called in stating she had an EGD/Colonoscopy done a while ago but everything came back normal. Pt c/o diarrhea and vomiting and is wanting to know what to do. Pt wants to know if these symptoms could be from anxiety or something else. Pt sates that you prescribed her promethazine last time. Callback number [phone]. documented in this encounter Plan of Treatment Not on file documented as of this encounter Visit Diagnoses Not on filedocumented in this encounter Additional Health Concerns Infection Onset Date Last Indicated Resolved Time Exposure, COVID-19 Comment:Added automatically based on COVID19 lab answers indicating exposure risk 09/11/2019 09/11/2019 09/26/2019 3:05 AM C DT documented as of this encounter Care Teams Av Specialist Relationship Specialty [place] [address] [address] [address] PCP - General 07/04/19 [place] [address] [address] [address] 11/16/18 documented as of this encounter
--- OUTSIDE RECORDS SUMMARY | 2024-02-24 20:13 | XMS_ITS | Encounter Summary ---
Author Organization [facility] Healthcare Address [address] [place] [address] Care Team Providers Care Packaging Operator Name Role Phone Huseyin Dangelo MD Unavailable [phone] Brian Mon MD Primary Care Provider + Reason for Visit * Reason Comments Syncope Post-op Problem Encounter Details Date Type Department Care Team (Late st Contact Info) Description 10/06/2019 1:52 AM CDT - 10/06/2019 3:47 AM CDT Emergency [facility] Emergency Department [address] [place] [id number] Lauren Stevenson MD [address] [place] [address] Neuroma (Primary Dx); Laceration of right median nerve, subsequent encounter Discharge Disposition: Discharge to home or self [...] Sign Reading Time Taken Comments Blood Pressure 139/91 10/06/2019 1:33 AM CDT Pulse 104 10/06/2019 1:33 AM CDT Temperature 36.8 ??C (98.2 ??F) 10/06/2019 1:33 AM CD T Respiratory Rate 18 10/06/2019 1:33 AM CDT Oxygen Saturation 96% 10/06/2019 1:33 AM CDT Inhaled Oxygen Concentration - - Weight 74.8 kg (165 lb) 10/06/2019 1:33 AM CDT Height 160 cm (5' 3 ) 10/06/2019 1:33 AM CDT Body Mass Index 29.23 10/06/2019 1:33 AM CDT documented in this encounter Discharge Diagnoses Diagnosis Benign neoplasm of peripheral nerves and autonomic nervous system, upper limb, including shoulder - BENIGN NEOPLASM OF PERIPHERAL NERVES AND AUTONOMIC NERVOUS SYSTEM, UPPER LIMB, INCLUDING SHOULDER Injury of median nerve at wrist and hand level of right arm, subsequent encounter - INJURY OF MEDIAN NERVE AT WRIST AND HAND LEVEL OF RIGHT ARM, SUBSEQUENT ENCOUNTER Unspecified asthma, uncomplicated - UNSPECIFIED ASTHMA, UNCOMPLICATED Rheumatoid arthritis, unspecified (HCC) - RHEUMATOID ARTHRITIS, UNSPECIFIED Fibromyalgia - FIBROMYALGIA Unspecified myalgia and myositis Nicotine dependence, unspecified, uncomplicated - NICOTINE DEPENDENCE, UNSPECIFIED, UNCOMPLICATED Exposure to other specified factors, subsequent encounter - EXPOSURE TO OTHER SPECIFIED FACTORS, SUBSEQUENT ENCOUNTER Unspecified place or not applicable - UNSPECIFIED PLACE OR NOT APPLICABLE documented in this encounter Discharge Instructions * Discharge Instructions* Kristin Martin MD - 10/06/2019 3:21 AM CDT You were seen in the Emergency Department for wrist pain. The plastic surgery team was contacted and as Dr. Saleh is no longer at [facility], recommended Dr. Riley for you for follow up (his contact information is available). Additionally a referral was placed to the [facility] specialists here. You were also provided with a lidocaine patch and a splint as well as yourhome prescription of a few doses of Xanax to help spot you until you can see your primary care doctor for a refill. documented in this encounter Medications at Time [...] a day 50 tablet 3 09/19/2019 0 lidocaine (LIDODERM) 5 % Apply 1 patch topically daily Remove after 12 hours (need 12 hour patch free period). 15 patch 10/06/2019 0 multivitamin capsule Take 1 capsule by [...] nightly 0 documented as of this encounter Ordered Prescriptions Prescription Sig Dispense Quantity Refills Last Filled Start Date End Date lidocaine (LIDODERM) 5 % Apply 1 patch topically daily Remove after 12 hours (need 12 hour patch free period). 15 patch 10/06/2019 0 ALPRAZolam (XANAX) 0.25 mg tablet Take 1 tablet (0.25 mg total) by mouth nightly as needed for anxiety for up to 3 days 3 tablet 10/06/2019 0 documented in this encounter Discharge Disposition Disposition Code Departure Means Destination Discharge to home or self care documented in this encounter ED Notes * Lauren Stevenson MD - 10/06/2019 2:29 AM CDT HPI Chief Complaint Patient presents with ??? Syncope ??? Post-op Problem Carito Rausch is a 29 y.o. female with history of median nerve laceration s/p repair (2018), GERD, possible epilepsy presenting with chief complaint of wrist pain. She reports chronic pain that isunchanged in severity. She has presented to an [facility] ED multiple times over the past couple months for these complaints. She reports that her epilepsy has been caused by the wrist pain. Per chart review she has had a brain MRI in late August that was normal as well as another head CT eight days ago that was also normal. She had an appointment with an epileptologist but canceled it. She reports havingtried every kind of pain medication including norco, oxycodone, gabapentin, SSRIs, lidocaine, splints, and states that none of it has worked. She reports that her orthopedic surgeon told her that shewas too complicated and that she should come to [place] to be operated on by Sara Saleh. Patient alsoendorses nearly reynolds positive review of systems. Patient History Patient Active Problem List Diagnosis [...] History Tobacco Use ??? Smoking status: Current Every Day Smoker Last attempt to quit: 12/28/2018 Years since quittin.7 ??? Smokeless tobacco: Never Used Substance Use Topics ??? Alcohol use: Yes Comment: occasionally ??? Drug use: Yes Types: Marijuana Comment: smoked last night Social History Social History Narrative ??? Not on file Review of Systems Review of Systems Constitutional: Positive for chills and fever. HENT: Positive for congestion. Eyes: Negative for visual disturbance. Respiratory: Positive for cough and shortness of breath. Gastrointestinal: Positive for abdominal pain, nausea and vomiting. Genitourinary: Negative for decreased urine volume. Musculoskeletal: + wrist pain Skin: Negative for wound. Neurological: Positive for seizures and headaches. Psychiatric/Behavioral: The patient is nervous/anxious. Physical Exam ED Triage Vitals [10/06/19 0133] Temp Pulse Resp BP SpO2 36.8 ??C (98.2 ??F) 104 18 139/91 96 % Temp src Heart Rate Source Patient Position BP Location FiO2 (%) Oral -- -- -- -- Physical Exam Vitals signs and nursing note reviewed. Constitutional: General: She is not in acute distress. Appearance: She is well-developed. Comments: + tearful HENT: Head: Normocephalic and atraumatic. Eyes: Conjunctiva/sclera: Conjunctivae normal. Neck: Musculoskeletal: Neck supple. Cardiovascular: Rate and Rhythm: Normal rate and regular rhythm. Heart sounds: Normal heart sounds. No murmur. Pulmonary: Effort: Pulmonary effort is normal. No respiratory distress. Breath sounds: Normal breath sounds. Abdominal: General: Bowel sounds are normal. There is no distension. Palpations: Abdomen is soft. Tenderness: There is no abdominal tenderness. There is no guarding. Musculoskeletal: Comments: + right thumb with some thenar wasting + horizontal scar across volar wrist + no sensation over thumb, second finger, third finger + able to make thumbs up, A OK, and cross fingers Skin: General: Skin is warm and dry. Neurological: Mental Status: She is alert and oriented to person, place, and time. [facility] MDM: Assessment: Carito Rausch is a 29 y.o.-old female with history of median nerve laceration s/p repair (2019), GERD, possible epilepsy presenting with chief complaint of wrist pain. Physical exam asabove. Ddx: neuroma of wrist, chronic pain, Plan: 1) Labs: N/A 2) Imaging: N/A 3) Interventions: #Wrist pain - Offered lidocaine patch and splint - [facility] plastic surgery regarding who patient can follow up with #Other medical complaints - Patient also complaining of N/V from the pain- had CT scan at [facility] yesterday reportedly that was normal - Patient reports frequent seizures from the pain (most recent head imaging normal) and canceled appointment with epileptologist 4) Dispo pending results and clinical course- anticipate discharge Attending Summary of Care ED Course as of Oct 06 339 Time: 10/05 258 Comment: Attending summary: 29 year old female presents with chronic right wrist pain with hand numbness tingling secondary to a reported neuroma. States that she has episodes of pain so severe that it causes her to pass out. States she was told to follow-up plastic surgery here and is requesting admission. Exam with scar noted to ventral portion right wrist with thenar atrophy but with good circulation. Rec lidocaine patch and wrist splint and follow-up as an outpatient. By: Lauren Stevenson MD Time: 10/05 338 Comment: Patient requested home med xanax. By: Kristin Martin MD Time: 10/05 338 Comment: Plastic surgery recommends Dr. Riley for follow up. Put in discharge paperwork. By: Kristin Martin MD Neuroma Laceration of right median nerve, subsequent encounter I have seen and examined the patient on 10/06/2019 . I agree with the findings and plan of care as documented in the resident's note. Lauren Stevenson MD 10/06/19 0347 * Cassandra Mccoy, PRO - 10/06/2019 1:52 AM CDT Bed: ED2-21 Expected date: Expected time: Means of arrival: Car Comments: Cassandra Mccoy RN 10/06/19 0152 * Najma Rockwell RN - 10/06/2019 1:34 AM CDT Pt to ED with c/o I've been passing out every day for the last week. Pt states she had surgery onher R wrist in November 2018 when she cut her median nerve. Pt now states that after the surgery shehas developed seizures, pain, numbness and passing out. When asked COVID screening questions pt states she has all the symptoms but was recently tested and was negative. Pt states her surgery site now has large mass underneath of it. Surgery site healed, mass noted by this RN. Pt frustrated, statesher surgeon told her the surgery was too complex and she needed to come to [facility]. Pt states they keep wanting to prescribe her pain medication. Pt states recent MRI and was told the mass is a large neuroma and its pressing on the nerves in her wrist. Pt appears uncomfortable, AOx4, VSS. documented in this encounter Plan of Treatment Not on file documented as of this encounter Visit Diagnoses Diagnosis Neuroma- Primary Other benign neoplasm of connective and other soft tissue of unspecified site Laceration of right median nerve, subsequent encounter documented in this encounter Administered Medications Inactive Administered Medications - up to 3 most recent administrations Medication Order MAR Action Action Date Dose Rate Site ALPRAZolam (XANAX) tablet 0.25 mg 0.25 mg, oral, Once, On Sun10/06/19 at 0259, For 1 dose Given 10/06/2019 3:13 AM CDT 0.25 mg lidocaine (LIDODERM) 5 % patch 1 patch 1 patch, transdermal, Administer over 12 Hours, Daily, First dose on Sun10/06/19 at 0900, Do not cover the holes on the top side of the patch., Apply to affected area: other Medication Applied 10/06/2019 3:15 AM CDT 1 patch Other (Comment) documented in this encounter Active and Recently Administered Medications Times are shown in CDT. Scheduled Medication Order 10/04/2019 10/05/2019 10/06/2019 ALPRAZolam (XANAX) tablet 0.25 mg (COMPLETED) 0.25 mg, oral, Once, On Sun10/06/19 at 0259, For 1 dose 0313 (Given - Provid er: Renetta Membreno RN) lidocaine (LIDODERM) 5 % patch 1 patch 1 patch, transdermal, Administer over 12 Hours, Daily, First dose on Sun10/06/19 at 0900, Do not cover the holes on the top side of the patch., Apply to affected area: other 0315 (Medication Franklin lied - Provider: Renetta Membreno RN - Comment: R wrist)0347 (Due: Medication Removed - Provider: Automatic Discharge Provider - Comment: Time automatically adjusted from order being discontinued) documented in this encounter Care Teams Packaging Operator Relationship Specialty [place] [address] [address] [place] [address] PCP - General 07/04/19 [place] [address] [address] [facility] [place] [address] 11/16/18 documented as of this encounter
--- OUTSIDE RECORDS SUMMARY | 2024-02-24 20:13 | XMS_ITS | Encounter Summary ---
Author Organization [facility] Healthcare Address [address] [place] [address] Care Team Providers Care Control Clerk Subassembly Name Role Phone Huseyin Dangelo MD Unavailable [phone] Brian Mon MD Primary Care Provider + Encounter Details Date Type Department Care Team (Late st Contact Info) Description 10/03/2019 Patient Self-Triage [facility] [address] [place] [address] Mychart, Generic Provider [address] [place], [place] [id number] Social History Tobacco Use Types Packs/Day Years [...] on filedocumented in this encounter Care Teams Control Clerk Subassembly Relationship Specialty [place] [address] [facility] [address], [place] [address] PCP - General 07/04/19 [place] [address] [facility] [address], [place] [address] 11/16/18 documented as of this encounter
--- OUTSIDE RECORDS SUMMARY | 2024-02-24 20:13 | XMS_ITS | Encounter Summary ---
Author Organization [facility] Address [address] [place] [address] Phone Care Team Providers Care Shoe Repairer Apprentice Name Role Phone Huseyin Dangelo MD Unavailable [phone] Brian Mon MD Primary Care Provider + Encounter Details Date Type Department Care Team (Late st Contact Info) Description 10/05/2019 Telephone [facility] Rheumatology [address] [facility] Advanced Medicine 5th [place] [address] [place] [address] Jt Hines DO [address] [phone] [place] [address] Social History Tobacco Use Types Packs/Day Years [...] encounter Miscellaneous Notes * Telephone Encounter - Jt Hines DO - 10/05/2019 7:27 PM CDT Received page that patient called this afternoon. No indication for reason of the call listed. I returned call to the patient ([phone]) and no answer. Left voicemail that I was returning her call and that if she has an urgent issue she can call back, or if non-urgent may call again during weekday business hours. Will forward to patient's primary coffee weigher. Jt Hines DO Rheumatology Fellow documented in this encounter Plan of Treatment Not on file documented as of this encounter Visit Diagnoses Not on filedocumented in this encounter Care Teams Shoe Repairer Apprentice Relationship Specialty [place] [address] [address] [address] PCP - General 07/04/19 [place] [address] [address] [address] 11/16/18 documented as of this encounter
--- OUTSIDE RECORDS SUMMARY | 2024-02-24 20:13 | XMS_ITS | Encounter Summary ---
Author Organization [facility] Address [address] [place] [address] Phone Care Team Providers Care Spring Repairer Helper Hand Name Role Phone Huseyin Dangelo MD Unavailable [phone] Brian Mon MD Primary Care Provider + Encounter Details Date Type Department Care Team (Late st Contact Info) Description 10/03/2019 Telephone [facility] Epilepsy [address] [facility] 6th [place] [address] [place] [address] Teresa Echols RN Social History Tobacco Use Types Packs/Day [...] Miscellaneous Notes * Telephone Encounter - Teresa Echols RN - 10/07/2019 1:48 PM CDT Noted. Pt cancelled appt * Telephone Encounter - Darwin Dalal MD PhD - 10/03/2019 4:52 PM CDT If she has never established with me, then I am not her doctor and cannot direct her care. She has autonomy to cancel the appointment if she wants. She should do that by contacting the scheduling team ideally, but you can let them know. In general, I would advise her to talk to the referring physician for guidance about whether she should follow through with the appointment or not as that physician knows her and is following her clinical course and workup and coordinating her care. Daniel * Telephone Encounter - Teresa Echols RN - 10/03/2019 1:37 PM CDT Pt wants to cancel appt with Dr Dalal next week, this is a new appt, we have not seen pt yet. Will check with Dr Dalal * Telephone Encounter - Teresa Echols RN - 10/03/2019 1:37 PM CDT ----- Message from Carito Rausch sent at 10/03/2019 1:17 PM CDT ----- Regarding: Non-Urgent Medical Question Contact: Hi I believe I have an apt with you next Sunday I haven't been having seizures so I think I am ok and my mri looked good so you can go ahead and cancel documented in this encounter Plan of Treatment Not on file documented as of this encounter Visit Diagnoses Not on filedocumented in this encounter Care Teams Spring Repairer Helper Hand Relationship Specialty [place] [id number] [address] PCP - General 07/04/19 [place] [address] [address] 11/16/18 documented as of this encounter
--- OUTSIDE RECORDS SUMMARY | 2024-02-24 20:13 | XMS_ITS | Encounter Summary ---
Author Organization [facility] Address [address] [facility] [address] [place] [address] Care Team Providers Care Scale Assembly Set Up Worker Name Role Phone Huseyin Dangleo MD Unavailable [phone] Brian Mon MD Primary Care Provider + Encounter Details Date Type Department Care Team (Late st Contact Info) Description 10/21/2019 Telephone [facility] Gastroenterology at [address] [place] [address] Jacqui Mccloud MA Social History [...] Telephone Encounter - Jacqui Mccloud MA - 10/21/2019 11:41 AM CDT Pt called wanting to know if she could speak to you, states she unable to keep any food down and does not know what she should do, has an appt 9-1-20 for an office visit documented in this encounter Plan of Treatment Not on file documented as of this encounter Visit Diagnoses Not on filedocumented in this encounter Additional Health Concerns Infection Onset Date Last Indicated Resolved Time COVID: Recovered Comment:Flag applied in error. Added based on recent COVID infection. 09/04/2019 10/15/2019 11/06/2019 11:15 AM CDT documented as of this encounter Care Teams Scale Assembly Set Up Worker Relationship Specialty [place] [address] [address] [facility] [address] [place] [address] PCP - General 07/04/19 [place] [address] [address] [facility] [address] [place] [address] 11/16/18 documented as of this encounter
--- OUTSIDE RECORDS SUMMARY | 2024-02-24 20:13 | XMS_ITS | Encounter Summary ---
Author Organization [facility] Address [address] [facility] [address] [place] [address] Care Team Providers Care Senior Loan Officer Name Role Phone Huseyin Dangelo MD Unavailable [phone] Brian Mon MD Primary Care Provider + Encounter Details Date Type Department Care Team (Late st Contact Info) Description 09/25/2019 Orders Only [facility] [address] [facility] [address] [place] [address] [place] [address] [facility] [address] [place] [address] Laceration of flexor muscle, fascia and tendon [...] as of this encounter Care Teams Senior Loan Officer Relationship Specialty [place] [address] [address] [place] [address] PCP - General 07/04/19 [place] [address] [address] [place] [address] 11/16/18 documented as of this encounter
--- OUTSIDE RECORDS SUMMARY | 2024-02-24 20:13 | XMS_ITS | Encounter Summary ---
Author Organization [facility] Address [address] [place] [address] Phone Care Team Providers Care Optician Manager Name Role Phone Huseyin Dangelo MD Unavailable [phone] Brian Mon MD Primary Care Provider + Encounter Details Date Type Department Care Team (Late st Contact Info) Description 09/26/2019 Documentation [facility] Rheumatology [address] [facility] Advanced Medicine 5th [place] [address] [place] [address] Rishi Davis MD [address] [place] [address] Social History Tobacco Use Types [...] as of this encounter Progress Notes * Rishi Davis MD - 09/26/2019 6:26 PM CDT Ms Rausch, a 29 year old female patient of Dr Delarosa'makeda with lupus called the after hours line today with a complaint of dizziness. She had called yesterday saying she had a fever and diarrhea, which have resolved at this time. She says she has had this constant light headedness not related to postural or head changes for thepast 3 months but worse in the past few weeks with associated blurring of her vision, tinnitus, nausea, gait imbalance and slurred speech. She denies LOC, focal weakness or falls. She is worried she might have multiple sclerosis and is worried about taking Benlysta as she questions her diagnosis. She had a Normal MRI brain 09/23 and unremarkable CMP a few days ago. She checks her blood pressureat home and it usually runs in the 120s/80s. A/P Discussed other potential causes of dizziness including dehydration and encouraged oral intake Advised her to report to the ED immediately if she developed slurred speech or focal weakness. Will route note to primary trackman to let her know Rishi Davis MD 09/26/2019 6:35 PM Cosigned by Carolina Delarosa MD at 09/29/2019 11:10 AM CDT documented in this encounter Plan of Treatment Not on file documented as of this encounter Visit Diagnoses Not on filedocumented in this encounter Additional Health Concerns Infection Onset Date Last Indicated Resolved Time Exposure, COVID-19 Comment:Added automatically based on COVID19 lab answers indicating exposure risk 09/11/2019 09/11/2019 09/26/2019 3:05 AM C DT documented as of this encounter Care Teams Optician Manager Relationship Specialty [place] [address] [facility] [address] [place] [address] PCP - General 07/04/19 [place] [address] [address] [facility] [address] [place] [address] 11/16/18 documented as of this encounter
--- OUTSIDE RECORDS SUMMARY | 2024-02-24 20:13 | XMS_ITS | Encounter Summary ---
Author Organization [facility] [employer] [facility] Address [address] [place] [address] Phone Care Team Providers Care Professor Of Special Education Name Role Phone Huseyin Dangelo MD Unavailable Brian Mon MD Primary Care Provider + Reason for Visit * Consultation (Routine) - Closed Specialty Diagnoses / Procedures Referred By Contac t Referred To Contact Endocrinology Diagnoses Fatigue, unspecified type Griffin Burr MD Phone: tel: fax: [facility] (All Locations) Referral ID Status Reason Start Date Expiration Date V isits Requested Visits Authorized [id number] Closed Specialty Services Required 09/25/2019 10/24/2020 1 1 Encounter Details Date Type Department Care Team (Latest Contact Info) Description 10/24/2019 4:00 PM CDT Telemedicine [facility] Endocrinology Metabolism and Lipid 10 [facility] Medical Office Building [address] [address] Darius Fernandez MD [address] [place] [address] Adrenal insufficiency (CMS/HCC) (Primary Dx); Fatigue, unspecified type Social History Tobacco Use Types [...] Reading Time Taken Comments Blood Pressure 126/78 10/24/2019 2:17 PM CDT Pulse 90 10/24/2019 2:17 PM CDT Temperature - - Respiratory Rate - - Oxygen Saturation - - Inhaled Oxygen Concentration - - Weight 74.8 kg (165 lb) 10/24/2019 2:17 PM CDT Height 157.5 cm (5' 2 ) 10/24/2019 2:17 PM CDT Body Mass Index 30.18 10/24/2019 2:17 PM CDT documented in this encounter Progress Notes * Frnacois Fernandez MD - 10/24/2019 4:00 PM CDT Images from the original note were not included. Endocrine Patient Visit This was a telemedicine visit with Umer anglin which took place via real-time video connection with [employer]. During the visit, I was located in the office and the patient was located at home.The patient visit started at 4:00 pm and ended at 4:40 pm . Total encounter time was 70 minutes, which includes time spent today on [...] with history of lupus which has required correction steriod use for 2.5 years. Has required high Dose in the past up to 60 mg daily. Currently attempting taper. Current dose is 11 mg daily which has been on for the last 2 weeks ( down form 12 mg daily). She is feeling fatigued all the time. When she tried to decrease her dose to 10 mg she felt very tired and had to increase her dose back to 11 mg daily. Her other symptoms include nausea every day, abdominal pain, dizziness. But when she checks her blood pressure it is usually in the 120/80 range. Current Outpatient Medications Medication ??? albuterol (PROAIR RESPICLICK) 90 mcg/actuation inhaler ??? ALPRAZolam (XANAX) 0.25 mg tablet ??? ergocalciferol (VITAMIN D) 50,000 unit capsule ??? hydrOXYchloroQUINE (PLAQUENIL) 200 mg tablet ??? multivitamin capsule ??? omeprazole (PriLOSEC) 20 mg capsule ??? ondansetron (ZOFRAN) 4 mg tablet ??? predniSONE (DELTASONE) 5 mg tablet ??? acidophilus-pectin, citrus 100 million cell-10 mg capsule ??? ALPRAZolam (XANAX) 0.25 mg [...] ??? levETIRAcetam (KEPPRA) 500 mg tablet ??? lidocaine (LIDODERM) 5 % ??? predniSONE (DELTASONE) 1 mg tablet ??? prochlorperazine (COMPAZINE) 10 mg tablet ??? traZODone (DESYREL) 150 mg tablet No current facility-administered medications for this visit. Review of Systems Review of systems per HPI and otherwise all other systems are negative. OBJECTIVES Physical exam: BP 126/78 Pulse 90 Ht 157.5 cm (5' 2 ) Wt 74.8 kg (165 lb) LMP 10/10/2019 BMI 30.18 kg/m?? General Appearance: NAD, well developed Head: No obvious abnormality, Eyes: No obvious abnormality. Neck: Thyroid: No obvious abnormality No Visible enlargement Skin: Color appears normal Neurologic: AAOX4. Psychosocial: Normal affect and mood. [...] ??? Methylprednisolone Anaphylaxis and Syncope Syncope ??? Venlafaxine Itching Social History Tobacco Use ??? Smoking status: Current Every Day Smoker Last attempt to quit: 12/28/2018 Years since quittin.8 ??? Smokeless tobacco: Never Used Substance Use Topics ??? Alcohol use: Yes Comment: occasionally Family History Problem Relation Age of Onset ??? Gout Mother ??? Diabetes Mother ??? Hypertension Mother ??? Heart disease Father ??? Stroke Father ??? Colon cancer Other Labs: Results for UMER RAUSCH ( ) as of 11/16/2019 22:38 Ref. Range 08/25/2019 08:19 TSH Latest Ref Range: 0.30 - 4.20 mcIUnit/mL 2.96 Prolactin Latest Ref Range: 4.8 - 23.3 ng/mL 27.3 (H) Results for UMER RAUSCH ( ) as of 11/16/2019 22:38 Ref. Range 09/28/2019 10:16 Sodium Latest Ref [...] 9.6 GFR Latest Units: mL/min/1.73 m2 122 IMAGING: EXAMINATION: Magnetic resonance imaging (MRI) of [...] with history of lupus which has required correction steriod use for 2.5 years wo is currently on 11 mg of prednisone daily and having symptoms of fatigue, nausea, abdominal pain, dizziness. No hypotension. discussed with Ms. Rausch that symptoms she is having could be due to going through steroid withdrawal ( steroid withdrawal syndrome) discussed that these symptoms should improve with time. Will plan on tapering steriod very slowly. Would wait first to make sure her lupus is in remission. Also discussed that because she been on steroid it for long time hypothalamic- pituitary- adrenal axis is most likely Suppressed which gives her the diagnosis of adrenal insuffiencey. Will check her 8 AM cortisol, ACTH and DHEAS after holding morning prednisone to confirm. Discussed sick day rules and advised her to wear a medical ID that states her diagnosis. Will prescribe IM steroid to [facility] for emergencies. Will need to discuss with pharmacy as she has hadand anaphylactic reaction to methylprednisolone in the past. Thank you for allowing me to participate in the care of Ms. Rausch. Will continue to follow. Francois Fernandez MD Instructor in Medicine Division of Endocrinology, Metabolism and Lipid Research [facility] documented in this encounter Plan of Treatment Not on file documented as of this encounter Results * (ABNORMAL) ACTH (10/28/2019 8:16 AM CDT) ACTH <5.0(L) pg/mL [facility] ([place]) Comment: REFERENCE VALUE 7.2-63 (a.m. collection) Test Performed by: [place] [id number] Educational Program Assistant: Dima Travis M.D. Ph.D.; CLIA# [id number] Blood specimen (specimen) 10/28/2019 8:16 AM CDT 10/28/2019 8:32 AM CDT us Darius Fernandez MD LAB BLOOD ORDERABLES Final Resul t [facility] ([place]) 1 [facility] Department [place] [address] * (ABNORMAL) DHEA-sulfate (10/28/2019 8:16 AM CDT) DHEA-S 5.8(L) 98.8 - 340.0 mcg/dL [facility] ([place]) Comment:Testing performed by : [facility], [address] [place]., [address] Blood specimen (specimen) 10/28/2019 8:16 AM CDT 10/28/2019 12:23 PM CDT Darius Fernandez MD LAB BLOOD ORDERABLES Final Resul t Performing Organization Address [facility] Co de Phone Number [facility] M[facility]IN ([place]) 1 [facility] [place] [place] [address] * (ABNORMAL) Cortisol (10/28/2019 8:16 AM CDT) Cortisol <0.1(L) 4.8 - 19.5 mcg/dl [facility] ([place]) Comment: Interpretive Data Normal Range: ??4.8 - 19.5 mcg/dL; ??Evening: ??Half of morning value. ?? This analyte undergoes marked diurnal variation. ??Ranges indicated apply to morning specimens. ?? Current interpretive data was last revised 2018. Testing performed by: [facility], [address] [place] [address], [id number] Blood specimen (specimen) 10/28/2019 8:16 AM CDT 10/28/2019 11:57 AM CDT Darius Fernandez MD LAB BLOOD ORDERABLES Final Resul t Performing Organization Address [facility] Co de Phone Number [facility] M[facility]IN ([place]) 1 [facility] [place] [address] documented in this encounter Visit Diagnoses Diagnosis Adrenal insufficiency (HCC)- Primary Glucocorticoid deficiency Fatigue, unspecified type documented in this encounter Orders Outpatient Referral Count Last Ordered Date Fir st Ordered Date AMB REFERRAL TO ENDOCRINOLOGY 10/24/2019 documented in this encounter Additional Health Concerns Infection Onset Date Last Indicated Resolved Time COVID: Recovered Comment:Flag applied in error. Added based on recent COVID infection. 09/04/2019 10/15/2019 11/06/2019 11:15 AM CDT documented as of this encounter Care Teams Professor Of Special Education Relationship Specialty [place] [address] [address] [place] [address] PCP - General 07/04/19 [place] [address] [address] [facility] [place] [address] 11/16/18 documented as of this encounter
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
--- OUTSIDE RECORDS SUMMARY | 2024-02-24 20:13 | XMS_ITS | Encounter Summary ---
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 ??There will be no report generated by a [facility] Radiologist. Narrative [facility] - 10/17/2019 8:07 AM CDT EXAMINATION: ??Images For Reference Purposes Only Molina Swenson MD IMG CT PROCEDURES Final Result [facility] documented in this encounter Visit Diagnoses Not on filedocumented in this encounter Additional Health Concerns Infection Onset Date Last Indicated Resolved Time COVID: Recovered Comment:Flag applied in error. Added based on recent COVID infection. 09/04/2019 10/15/2019 11/06/2019 11:15 AM CDT documented as of this encounter Care Teams Case Finishing Machine Adjuster Relationship Specialty [place] [address] [address] [facility] [address] [place] [address] PCP - General 07/04/19 [place] [address] [address] [facility] [address] [place] [address] 11/16/18 documented as of this encounter
--- OUTSIDE RECORDS SUMMARY | 2024-02-24 20:13 | XMS_ITS | Encounter Summary ---
Author Organization [facility] Healthcare Address [address] [place] [address] Care Team Providers Care Lot Porter Name Role Phone Huseyin Dangelo MD Unavailable Brian Mon MD Primary Care Provider + Reason for Referral * Diagnostic Imaging (Routine) - Closed Specialty Diagnoses / Procedures Referred By Contac t Referred To Contact Diagnoses Nausea and vomiting, intractability of vomiting not specified, unspecified vomiting type Upper abdominal pain Procedures NM Hepatobiliary Imaging [facility] Dang Mcdowell MD Phone: tel: fax: [address] [address] Referral ID Status Reason Start Date Expiration Date Visits Re quested Visits Authorized [id number] Closed 10/27/2019 12/11/2019 2 2 Encounter Details Date Type Department Care Team (Late st Contact Info) Description 10/22/2019 Orders Only [facility] [address] [place] [id number] Dang Mcdowell MD [address] [place] [address] Nausea and vomiting, intractability of vomiting not specified, unspecified vomiting type (Primary Dx); Upper abdominal pain Social History Tobacco Use Types Packs/Day [...] as of this encounter Progress Notes * Dang Mcdowell MD - 10/22/2019 4:39 PM CDT Patient call today. She is having recurrent episodes of nausea and vomiting and upper abdominal pain and of the medications help. Most of these episodes are after eating solid food. Will order HIDA scan with ejection fraction with gallbladder. documented in this encounter Plan of Treatment Not on file documented as of this encounter Results * NM Hepatobiliary Imaging W [facility] (10/28/2019 3:21 PM CDT) Anatomical Region Laterality Modality Body N/A Nuclear Medicine 10/28/2019 1:29 PM CDT Impressions 10/28/2019 4:32 PM CDT ??1. ??No evidence of cystic duct obstruction. 2. ??Normal gallbladder ejection fraction. THIS IS AN ELECTRONICALLY VERIFIED FINAL REPORT 10/28/2019 4:29 PM - Electronically signed by Toy Dimas M.D. CH: ATUL D: ??10/28/2019 4:29 PM T: ??10/28/2019 4:29 PM Report ID: [id number] Reading Location: ??[id number] Narrative 10/28/2019 4:32 PM CDT [facility] ?Imaging Result Name: JERROD UMER Dianelys ? Ordering Phys: DANG MCDOWELL Age: 29 ?Date of : 1990 ? Accession Number: [id number] Date of Service: 10/28/2019 ??Gender: F EXAM DESCRIPTION: ?? NM HEPATOBILIARY IMAGING W PHARMACEUTICAL INTERVENTION REASON FOR STUDY: ??Abdominal pain since May 2019. RADIOPHARMACEUTICAL: ??5.1 mCi Tc-99m mebrofenin via a right antecubital IV site and 8 oz Ensure Plus or equivalent p.o. COMPARISON: ??CT abdomen and pelvis 07/15/2019. TECHNIQUE: ??Following the intravenous administration of the radiopharmaceutical, sequential abdominal images were obtained. A region of interest was drawn around the gallbladder with an ejection fraction calculated. ??There is prompt, homogenous tracer localization throughout the liver. There is normal visualization of the intrahepatic ducts, common bile duct, and gallbladder. ??There is normal biliary to bowel transit. Following the oral administration of Ensure Plus, the gallbladder ejection fraction was calculated and was 86% (normal: greater than 40%, equivocal: 30-40%, and abnormal: less than 30%). Procedure Note Toy Dimas Jr., MD - 10/28/2019 [facility] Imaging Result Name: UMER ELDER Ordering Phys: DANG MCDOWELL Age: 29 Date of : 1990 Accession Number: [id number] Date of Service: 10/28/2019 Gender: F EXAM DESCRIPTION: NM HEPATOBILIARY IMAGING W PHARMACEUTICALINTERVENTION REASON FOR STUDY: Abdominal pain since May 2019. RADIOPHARMACEUTICAL: 5.1 mCi Tc-99m mebrofenin via a right antecubitalIV site and 8 oz Ensure Plus or equivalent p.o. COMPARISON: CT abdomen and pelvis 07/15/2019. TECHNIQUE: Following the intravenous administration of the radiopharmaceutical, sequential abdominal images were obtained. A regionof interest was drawn around the gallbladder with an ejection fraction calculated. There is prompt, homogenous tracer localization throughout the liver. There is normal visualization of the intrahepatic ducts, commonbile duct, and gallbladder. There is normal biliary to bowel transit. Following the oral administration of Ensure Plus, the gallbladderejection fraction was calculated and was 86% (normal: greater than 40%,equivocal: 30-40%, and abnormal: less than 30%). IMPRESSION: 1. No evidence of cystic duct obstruction. 2. Normal gallbladder ejection fraction. THIS IS AN ELECTRONICALLY VERIFIED FINAL REPORT 10/28/2019 4:29 PM - Electronically signed by Toy Dimas M.D. CH: Report ID: [id number] Reading Location: [place] [address] Dang Mcdowell MD IMG NM PROCEDURES Final Re sult documented in this encounter Visit Diagnoses Diagnosis Nausea and vomiting, intractability of vomiting not specified, unspecified vomiting type- Primary Upper abdominal pain Nausea and vomiting, intractability of vomiting not specified, unspecified vomiting type Upper abdominal pain documented in this encounter Additional Health Concerns Infection Onset Date Last Indicated Resolved Time COVID: Recovered Comment:Flag applied in error. Added based on recent COVID infection. 09/04/2019 10/15/2019 11/06/2019 11:15 AM CDT documented as of this encounter Care Teams Lot Porter Relationship Specialty [place] [address] [address] [address] PCP - General 07/04/19 [place] [address] [address] [place] [address] 11/16/18 documented as of this encounter
--- OUTSIDE RECORDS SUMMARY | 2024-02-24 20:13 | XMS_ITS | Encounter Summary ---
Author Organization [facility] Address [address] [place] [address] Phone Care Team Providers Care Rope Cutter Name Role Phone Huseyin Dangelo MD Unavailable [phone] Brian Mon MD Primary Care Provider + Reason for Visit * Reason Onset Date Comments Labs Only 10/28/2019 Encounter Details Date Type Department Care Team (Late st Contact Info) Description 10/28/2019 Telephone [facility] Endocrinology Metabolism and Lipid [address] [facility] 2nd Floor [address] [place] [address] Maryam Venegas LPN Labs Only Social History Tobacco Use Types Packs/Day [...] encounter Miscellaneous Notes * Telephone Encounter - Maryam Venegas LPN - 10/28/2019 2:56 PM CDT Received a call from patient stating she spoke with you last evening after hours. She would like tospeak with you again regarding the labs she had done this am. Would not give me any further details. documented in this encounter Plan of Treatment Not on file documented as of this encounter Visit Diagnoses Not on filedocumented in this encounter Additional Health Concerns Infection Onset Date Last Indicated Resolved Time COVID: Recovered Comment:Flag applied in error. Added based on recent COVID infection. 09/04/2019 10/15/2019 11/06/2019 11:15 AM CDT documented as of this encounter Care Teams Rope Cutter Relationship Specialty [place] [address] [address] [address] PCP - General 07/04/19 [place] [address] [address] [place] [address] 11/16/18 documented as of this encounter
--- OUTSIDE RECORDS SUMMARY | 2024-02-24 20:13 | XMS_ITS | Encounter Summary ---
Author Organization [facility] Address [address] [facility] [address] [place] [address] Care Team Providers Care Hospital Account Manager Name Role Phone Huseyin Dangelo MD Unavailable [phone] Brian Mon MD Primary Care Provider + Encounter Details Date Type Department Care Team (Late st Contact Info) Description 09/25/2019 Telephone [facility] [address] [facility] [address] [place] [address] Dilan Del Toro MD 4 [facility] [address] [place] [address] Social History Tobacco Use Types [...] encounter Miscellaneous Notes * Telephone Encounter - Flor Deleon - 09/25/2019 11:47 AM CDT Patient requests results of MRI done at [facility] yesterday. documented in this encounter Plan of Treatment Not on file documented as of this encounter Visit Diagnoses Not on filedocumented in this encounter Additional Health Concerns Infection Onset Date Last Indicated Resolved Time COVID: Recovered Comment:Flag applied in error. Added based on recent COVID infection. 09/04/2019 10/15/2019 11/06/2019 11:15 AM CDT Exposure, COVID-19 Comment:Added automatically based on COVID19 lab answers indicating exposure risk 09/11/2019 09/11/2019 09/26/2019 3:05 AM C DT documented as of this encounter Care Teams Hospital Account Manager Relationship Specialty [place] [address] [address] [facility] [address] [place] [address] PCP - General 07/04/19 [place] [address] [address] [address] 11/16/18 documented as of this encounter
--- OUTSIDE RECORDS SUMMARY | 2024-02-24 20:13 | XMS_ITS | Encounter Summary ---
Author Organization [facility] Address [address] [facility] [address] [place] [address] Care Team Providers Care Farmworker Chicken Farm Name Role Phone Huseyin Dangelo MD Unavailable [phone] Brian Mon MD Primary Care Provider + Encounter Details Date Type Department Care Team (Late st Contact Info) Description 10/21/2019 Telephone [facility] Gastroenterology at [address] [place] [address] Anneliese Alvarenga NP [address] [address] Social History Tobacco Use Types Packs/Day Years [...] encounter Miscellaneous Notes * Telephone Encounter - Anneliese Alvarenga NP - 10/21/2019 3:22 PM CDT Pt called and says that she feels as if things are getting stuck in her throat often. She tries to eat and then has to make herself throw up because it feels as if it just sits there. She is also getting nauseous. She also has been having alternating diarrhea and constipation. We have done EGD and colonoscopy 07/29/19 and both of those were normal. She had CT with contrast done 06/2019 which showed possible indeterminate liver nodule. US was done to f/u on these findings and showed normal liver. Pt does have history of lupus and on infusions for this. She does admit to having lots of anxiety and stress We discussed that this is possible cause of GI issues given that testing has been negative. She says she takes xanax prn for anxiety but isn't sure this helps very much. She says she is about to go in for an appointment with her PCP and I encouraged her to discuss using something daily for anxiety rather than prn benzo. She has an appointment scheduled on 10/27 with our office and I encouraged her to come in so we can discuss her symptoms further. documented in this encounter Plan of Treatment Not on file documented as of this encounter Visit Diagnoses Not on filedocumented in this encounter Additional Health Concerns Infection Onset Date Last Indicated Resolved Time COVID: Recovered Comment:Flag applied in error. Added based on recent COVID infection. 09/04/2019 10/15/2019 11/06/2019 11:15 AM CDT documented as of this encounter Care Teams Farmworker Chicken [employer] Relationship Specialty [place] [address] [address] [address] PCP - General 07/04/19 [place] [address] [address] [address] 11/16/18 documented as of this encounter
--- OUTSIDE RECORDS SUMMARY | 2024-02-24 20:13 | XMS_ITS | Encounter Summary ---
Author Organization [facility] Address [address] [place] [address] Phone Care Team Providers Care Permanent Waver Name Role Phone Huseyin Dangelo MD Unavailable [phone] Brian Mon MD Primary Care Provider + Encounter Details Date Type Department Care Team (Latest Contact Info) Description 10/30/2019 2:00 PM CDT Telemedicine [facility] Endocrinology Metabolism and Lipid [address] [facility] Advanced Medicine 5th [place] [address] [place] [address] Darius Fernandez MD [address] [facility] [address] [place] [address] Hyperprolactinemia (CMS/HCC) (Primary Dx); Current chronic use of systemic steroids; Iron deficiency Social History Tobacco Use Types [...] Sign Reading Time Taken Comments Blood Pressure 120/96 10/30/2019 1:09 PM CDT Pulse 92 10/30/2019 1:09 PM CDT Temperature 36.5 ??C (97.7 ??F) 10/30/2019 1:09 PM CD T Respiratory Rate - - Oxygen Saturation - - Inhaled Oxygen Concentration - - Weight 74.8 kg (165 lb) 10/30/2019 1:09 PM CDT Height 157.5 cm (5' 2 ) 10/30/2019 1:09 PM CDT Body Mass Index 30.18 10/30/2019 1:09 PM CDT documented in this encounter Ordered Prescriptions Prescription Sig Dispense Quantity Refills Last Filled Start Date End Date ferrous gluconate 324 mg (37.5 mg of elemental iron) tabletIndications: Iron deficiency Take 1 tablet (324 mg total) by mouth 3 (three) times a day 90 tablet 2 11/03/2019 0 predniSONE (DELTASONE) 1 mg tabletIndications: Current chronic use of systemic steroids Take as directed by MD. Tapering steroid dose. 90 tablet 1 11/03/2019 0 documented in this encounter Progress Notes * Francois Fernandez MD - 10/30/2019 2:00 PM CDT Images from the original note were not included. Endocrine Patient Visit This was a telemedicine visit with Umer anglin which took place via real-time video connection with Zoom. During the visit, I was located in the office and the patient was located at home.The patient visit started at 2:10 pm and ended at 2:40 pm . . The patient has been informed that the [...] with history of lupus which has required manager long term care steriod use for 2.5 years. This is a follow up visit for likely steroid withdrawal syndrome and secondary adrenal insuffiencey. She continues to take 11 mg of prednisone. Symptoms are still the same. We discussed her lab results today. She is also concerned that her prolactin was elevated at 27 and that she might have diabetes form correction steroid use. Current Outpatient Medications Medication ??? ALPRAZolam (XANAX) 0.25 mg tablet ??? ergocalciferol (VITAMIN D) 50,000 unit capsule ??? hydrOXYchloroQUINE (PLAQUENIL) 200 mg tablet ??? multivitamin capsule ??? omeprazole (PriLOSEC) 20 mg capsule ??? acidophilus-pectin, citrus 100 million cell-10 mg capsule ??? albuterol (PROAIR RESPICLICK) 90 mcg/actuation inhaler ??? ALPRAZolam (XANAX) 0.25 mg tablet ??? belimumab (Benlysta) auto-injector ??? carBAMazepine (TEGretol) 100 mg chewable tablet ??? divalproex DR (DEPAKOTE) 250 mg EC tablet ??? escitalopram (LEXAPRO) 5 mg tablet ??? ferrous gluconate 324 mg (37.5 mg of elemental iron) tablet ??? fexofenadine (KERI) 60 mg tablet ??? HYDROcodone-acetaminophen (NORCO) 5-325 mg per tablet ??? hydrOXYzine (ATARAX) 25 mg tablet ??? ketorolac (TORADOL) 10 mg tablet ??? levETIRAcetam (KEPPRA) 500 mg tablet ??? ondansetron (ZOFRAN) 4 mg tablet ??? predniSONE (DELTASONE) 1 mg tablet ??? predniSONE (DELTASONE) 5 mg tablet ??? prochlorperazine (COMPAZINE) 10 mg tablet ??? traZODone (DESYREL) 150 mg tablet ??? triamcinolone (KENALOG) 0.1 % cream No current facility-administered medications for this visit. Review of Systems Review of systems per HPI and otherwise all other systems are negative. OBJECTIVES Physical exam: BP 120/96 Pulse 92 Temp 36.5 ??C (97.7 ??F) Ht 157.5 cm (5' 2 ) [...] ELDER ( ) as of 11/16/2019 22:38 Ref. Range 08/25/2019 08:19 TSH Latest Ref Range: 0.30 - 4.20 mcIUnit/mL 2.96 Prolactin Latest Ref Range: 4.8 - 23.3 ng/mL 27.3 (H) Results for UMER ELDER ( ) as of 11/16/2019 22:38 Ref. [...] 9.6 GFR Latest Units: mL/min/1.73 m2 122 Results for UMER ELDER ( ) as of 11/16/2019 23:07 Ref. Range 10/28/2019 08:16 ACTH Latest Units: [...] required correction steriod use for 2.5 years. This is a follow up visit for likely steroid withdrawal syndrome and secondary adrenal insuffiencey. We discussed her lab results today and answered all her questions. emphasized the importance of taking steroids daily Discussed sick day rules and advised her to wear a medical ID that states her diagnosis. Will check prolactin again and A1c. RTC in 4 weeks. Francois Fernandez MD Instructor in Medicine Division of Endocrinology, Metabolism and Lipid Research [facility] documented in this encounter Plan of Treatment Not on file documented as of this encounter Visit Diagnoses Diagnosis Hyperprolactinemia (HCC)- Primary Other and unspecified anterior pituitary hyperfunction Current chronic use of systemic steroids Iron deficiency Disorders of iron metabolism documented in this encounter Discontinued Medications Medication Sig Discontinue Reason Start Date End Da te predniSONE (DELTASONE) 1 mg tablet Take 1 mg by mouth daily Reorder 11/03/2019 documented as of this encounter Additional Health Concerns Infection Onset Date Last Indicated Resolved Time COVID: Recovered Comment:Flag applied in error. Added based on recent COVID infection. 09/04/2019 10/15/2019 11/06/2019 11:15 AM CDT documented as of this encounter Care Teams Permanent Waver Relationship Specialty [place] [address] [address] [address] PCP - General 07/04/19 [place] [address] [address] [facility] [address] [place] [address] 11/16/18 documented as of this encounter
--- OUTSIDE RECORDS SUMMARY | 2024-02-24 20:13 | XMS_ITS | Encounter Summary ---
Author Organization [facility] Address [address] [place] [address] Phone Care Team Providers Care Basket Braider Name Role Phone Huseyin Dangelo MD Unavailable Brian Mon MD Primary Care Provider + Reason for Referral * Consultation (Routine) - Closed Specialty Diagnoses / Procedures Referred By Contac t Referred To Contact Endocrinology Diagnoses Fatigue, unspecified type Griffin Burr MD Phone: tel: fax: [facility] (All Locations) Referral ID Status Reason Start Date Expiration Date V isits Requested Visits Authorized [id number] Closed Specialty Services Required 09/25/2019 10/24/2020 1 1 Question Answer Please select the performing region: [facility] (All Locations) [167] # of visits: 1 Comments Trouble weaning down prednisone, persistent fatigue. Encounter Details Date Type Department Care Team (Late st Contact Info) Description 09/25/2019 Telephone [facility] Rheumatology [address] [facility] Advanced Medicine 5th [place] [address] [place] [address] Griffin Burr MD [address] [facility] [address] [place] [address] Social History Tobacco Use Types [...] encounter Miscellaneous Notes * Telephone Encounter - Griffin Burr MD - 09/25/2019 6:11 PM CDT Pt called stating she had fever up to 102 (that has now broken) and persistent fatigue. States symptoms seemed to start once she tapered to 11 mg. No other associated symptoms. A/P Unclear etiology for fever. Discussed with patient that she may have mild covid given fever/fatigueand that she should strongly consider getting retested and avoid others. Fatigue seems to be related to weaning prednisone, will place a referral to endocrine for evaluation of adrenal insufficiency related to chronic prednisone use. Will route this message to her primary sample washer. documented in this encounter Plan of Treatment Scheduled Referrals Name Type Priority Associated Diagnoses Order Schedule Ambulatory referral to Endocrinology Outpatient Referral Routine Fatigue, unspecified type Expected: 10/09/2019 (Approximate), Expires: 09/24/2020 documented as of this encounter Visit Diagnoses Diagnosis Fatigue, unspecified type- Primary documented in this encounter Additional Health Concerns Infection Onset Date Last Indicated Resolved Time Exposure, COVID-19 Comment:Added automatically based on COVID19 lab answers indicating exposure risk 09/11/2019 09/11/2019 09/26/2019 3:05 AM C DT documented as of this encounter Care Teams Basket Braider Relationship Specialty [place] [address] [place] [address] [place] [address] PCP - General 07/04/19 [place] [address] [address] 11/16/18 documented as of this encounter
--- OUTSIDE RECORDS SUMMARY | 2024-02-24 20:13 | XMS_ITS | Encounter Summary ---
Author Organization [facility] Address [address] [place] [address] Phone Care Team Providers Care Industrial Therapist Name Role Phone Huseyin Dangelo MD Unavailable [phone] Brian Mon MD Primary Care Provider + Encounter Details Date Type Department Care Team (Late st Contact Info) Description 10/19/2019 Telephone [facility] Rheumatology [address] [facility] Advanced Medicine 5th [place] [address] [place] [address] Rishi Davis MD [address] [place] [address] Social History Tobacco Use Types [...] Schedule CBC with auto differential Lab Routine Lower urinary tract symptoms Expected: 10/19/2019, Expires: 10/18/2020 Urinalysis reflex to microscopic and culture Urine, clean voided Microbiology Routine Lower urinary tract symptoms Expected: 10/19/2019, Expires: 10/18/2020 documented as of this encounter Visit Diagnoses Diagnosis Lower urinary tract symptoms- Primary Other symptoms involving urinary system documented in this encounter Additional Health Concerns Infection Onset Date Last Indicated Resolved Time COVID: Recovered Comment:Flag applied in error. Added based on recent COVID infection. 09/04/2019 10/15/2019 11/06/2019 11:15 AM CDT documented as of this encounter Care Teams Industrial Therapist Relationship Specialty [place] [address] [address] [place] [address] PCP - General 07/04/19 [place] [address] [address] [place] [address] 11/16/18 documented as of this encounter
--- OUTSIDE RECORDS SUMMARY | 2024-02-24 20:13 | XMS_ITS | Encounter Summary ---
Author Organization [facility] Address [address] [place] [address] Phone Care Team Providers Care Bunch Breaker Name Role Phone Huseyin Dangelo MD Unavailable [phone] Brian Mon MD Primary Care Provider + Encounter Details Date Type Department Care Team (Late st Contact Info) Description 11/03/2019 Telephone [facility] Rheumatology [address] [facility] Advanced Medicine 5th [place] [address] [place] [address] Rishi Davis MD [address] [place] [address] Social History Tobacco Use Types [...] Telephone Encounter - Rishi Davis MD - 11/03/2019 9:52 AM CDT Patient called the on-call number today. Returned her call but got no answer. documented in this encounter Plan of Treatment Not on file documented as of this encounter Visit Diagnoses Not on filedocumented in this encounter Additional Health Concerns Infection Onset Date Last Indicated Resolved Time COVID: Recovered Comment:Flag applied in error. Added based on recent COVID infection. 09/04/2019 10/15/2019 11/06/2019 11:15 AM CDT documented as of this encounter Care Teams Bunch Breaker Relationship Specialty Start [place] [address] [address] [address] PCP - General 07/04/19 [place] [address] [address] [address] 11/16/18 documented as of this encounter
--- OUTSIDE RECORDS SUMMARY | 2024-02-24 20:13 | XMS_ITS | Encounter Summary ---
Author Organization [facility] Healthcare Address [address] [place] [address] Care Team Providers Care Brake Drum Lathe Operator Name Role Phone Huseyin Dangelo MD Unavailable [phone] Brian Mon MD Primary Care Provider + Reason for Referral * Diagnostic Imaging (Routine) - Closed Specialty Diagnoses / Procedures Referred By Jud freeman Referred To Contact Diagnoses Nausea and vomiting, intractability of vomiting not specified, unspecified vomiting type Upper abdominal pain Procedures NM Hepatobiliary Imaging W Dang Moe MD Phone: tel: fax: [address] [phone] Referral ID Status Reason Start Date Expiration Date Visits Re quested Visits Authorized [id number] Closed 10/27/2019 12/11/2019 2 2 Reason for Visit * Diagnostic Imaging (Routine) - Closed Specialty Diagnoses / Procedures Referred By Jud freeman Referred To Contact Diagnoses Nausea and vomiting, intractability of vomiting not specified, unspecified vomiting type Upper abdominal pain Procedures NM Hepatobiliary Imaging W Dang Moe MD Phone: tel: fax: [address] [phone] Referral ID Status Reason Start Date Expiration Date Visits Re quested Visits Authorized [id number] Closed 10/27/2019 12/11/2019 2 2 Encounter Details Date Type Department Care Team (Latest Contact Info) Description 10/28/2019 1:49 PM CDT - 10/28/2019 11:59 PM CDT Hospital Encounter [facility] [address] [place] [address] Dang Mcdowell MD [address] [place] [address] [address] Nausea and vomiting, intractability of vomiting not specified, unspecified vomiting type; Upper abdominal pain Discharge Disposition: Discharge to home or self [...] Procedure Name Priority Date/Time Associated Diagnosis Comments NM HEPATOBILIARY IMAGING W PHARMACEUTICAL INTERVENTION Schedule NAHOMY, Read Routine (Patient lives out of area) 10/28/2019 3:21 PM CDT Nausea and vomiting, intractability of vomiting not specified, unspecified vomiting type Upper abdominal pain documented in this encounter Results * NM Hepatobiliary Imaging [...] PM T: ??10/28/2019 4:29 PM Report ID: [id number] Reading Location: ??[id number] Narrative 10/28/2019 4:32 PM CDT [facility] ?Imaging Result Name: CARITO ELDER ? Ordering Phys: DANG MCDOWELL Age: 29 ?Date of : 1990 ? Accession Number: [id number] Date of Service: 10/28/2019 ??Gender: F EXAM [...] Note Toy Dimas Jr., MD - 10/28/2019 [facility] Imaging Result Name: CARITO ELDER Ordering Phys: DANG MCDOWELL Age: 29 Date of : 1990 Accession Number: [id number] Date of Service: 10/28/2019 Gender: F EXAM [...] by Toy Dimas M.D. CH: Report ID: [id number] Reading Location: [place] [address] Dang Mcdowell MD [facility] PROCEDURES Final Re sult documented in this encounter Visit Diagnoses Diagnosis Nausea and vomiting, intractability of vomiting not specified, unspecified vomiting type Upper abdominal pain documented in this encounter Administered Medications Inactive Administered Medications - up to 3 most recent administrations Medication Order MAR Action Action Date Dose Rate Site tc-99m mebrofenin (choletec) injection 5.1 millicurie 5.1 millicurie, intravenous, Once in imaging, radiopharmaceutical, Starting on Sun10/28/19 at 1407, For 1 dose, Indications: Diagnostic RadiographyIndicatio ns:Diagnostic Radiography Given 10/28/2019 1:55 PM CDT 5.1 millicuries Right Antecubital documented in this encounter Orders Medications Ordered That Omer ht Not Have Been Administered Count Last Ordered Date First Ordered Date tc-99m mebrofenin (choletec) injection 5.1 millicurie 1 10/28/2019 documented in this encounter Additional Health Concerns Infection Onset Date Last Indicated Resolved Time COVID: Recovered Comment:Flag applied in error. Added based on recent COVID infection. 09/04/2019 10/15/2019 11/06/2019 11:15 AM CDT documented as of this encounter Care Teams Brake Drum Lathe Operator Relationship Specialty [place] [address] [address] [place] [address] PCP - General 07/04/19 [place] [address] [address] [facility] [place] [address] 11/16/18 documented as of this encounter
--- OUTSIDE RECORDS SUMMARY | 2024-02-24 20:13 | XMS_ITS | Encounter Summary ---
Author Organization [facility] Address [address] [place] [address] Phone Care Team Providers Care Retail Maintenance Technician Name Role Phone Huseyin Dangelo MD Unavailable [phone] Brian Mno MD Primary Care Provider + Reason for Visit * Episode Based Medications (Routine) - Closed Specialty Diagnoses / Procedures Referred By Contac t Referred To Contact Diagnoses Lupus Procedures MI BELIMUMAB INJECTION [place] [address] [place] [address] Phone: tel: fax: [facility] Infusion Therapy [address] [place] [address] [address] [place] [address] Phone: tel: Referral ID Status Reason Start Date Expiration Date Visits Re quested Visits Authorized [id number] Closed 09/18/2019 09/16/2020 15 15 Encounter Details Date Type Department Care Team (Late st Contact Info) Description 11/04/2019 1:00 PM CDT Infusion [facility] Infusion Therapy [address] [place] [address] [address] [place] [address] Lupus (CMS/HCC) (Primary Dx) Social [...] Sign Reading Time Taken Comments Blood Pressure 130/80 11/04/2019 2:45 PM CDT Pulse 96 11/04/2019 2:45 PM CDT Temperature 36.7 ??C (98 ??F) 11/04/2019 1:00 PM CDT Respiratory Rate - - Oxygen Saturation - - Inhaled Oxygen Concentration - - Weight - - Height - - Body Mass Index - - documented in this encounter Progress Notes * Maryam Boles, RN - 11/04/2019 1:00 PM CDT Patient here today for first dose of benlysta. Patient denies any active infections. Patient statesshe feels nervous for infusion today. Questions answered and patient feeling better. PIV placed anddose infused over 1 hour. Patient observed for 30 minutes after with no s/sx of reaction. PIV removed and patient discharged. documented in this encounter Plan of Treatment Not on file documented as of this encounter Visit Diagnoses Diagnosis Lupus- Primary Systemic lupus erythematosus documented in this encounter Administered Medications Inactive Administered Medications - up to 3 most recent administrations Medication Order MAR Action Action Date Dose Rate Site acetaminophen (TYLENOL) tablet 650 mg 650 mg, oral, Once, On Sun11/04/19 at 1345, For 1 dose, Give 30 minutes prior to infusion for infusion reaction prophylaxis.Indications:Lupus Given 11/04/2019 1:30 PM CDT 650 mg beliMUMAB (BENLYSTA) 720 mg in sodium chloride 0.9% 250 mL IVPB 720 mg, intravenous, at 250 mL/hr, Administer over 60 Minutes, Once, On Sun11/04/19 at 1415, For 1 dose, Initial Dose Please use non-filter tubing. Protect from light, Indications: Systemic Lupus ErythematosusIndications:Syste marie Lupus Erythematosus New Bag 11/04/2019 1:45 PM CDT 720 mg 250 mL/ hr diphenhydrAMINE (BENADRYL) tab/cap 25 mg 25 mg, oral, Once, On Sun11/04/19 at 1345, For 1 dose, Please order either PO or IV. DO NOT give both IV and PO. Please give 30 minutes prior to infusion for infusion reaction prophylaxis.Indications:Lupus Given 11/04/2019 1:30 PM CDT 25 mg ondansetron (ZOFRAN) injection 4 mg 4 mg, intravenous, Administer over 2 Minutes, Once, On Sun11/04/19 at 1345, For 1 dose, Give 30 minutes prior to infusion for infusion reaction prophylaxis.Indications:Lupus Given 11/04/2019 1:20 PM CDT 4 mg documented in this encounter Orders Medications Ordered That Omer ht Not Have Been Administered Count Last Ordered Date First Ordered Date sodium chloride 0.9% flush 10 mL 1 11/04/19 20 Nursing Count Last Ordered Date First Orde red Date DAILY WEIGHTS 1 11/04/2019 ONCBCN NURSING COMMUNICATION [id number] 2 0 11/04/2019 ONCBCN PROVIDER COMMUNICATION 1 2 0 PATIENT EDUCATION (SPECIFY) 1 11/04/2019 VITAL SIGNS PRE-INFUSION 1 11/04/2019 Appointment Requests Count Last Ordered Date Fi rst Ordered Date INFUSION APPT REQUEST 90 MIN 1 11/18/2019 documented in this encounter Additional Health Concerns Infection Onset Date Last Indicated Resolved Time COVID: Recovered Comment:Flag applied in error. Added based on recent COVID infection. 09/04/2019 10/15/2019 11/06/2019 11:15 AM CDT documented as of this encounter Care Teams Retail Maintenance Technician Relationship Specialty [place] [address] [address] PCP - General 07/04/19 [place] [address] [address] [address] 11/16/18 documented as of this encounter
--- OUTSIDE RECORDS SUMMARY | 2024-02-24 20:13 | XMS_ITS | Encounter Summary ---
Author Organization [facility] Address [address] [place] [address] Care Team Providers Care Lines Tender Name Role Phone Huseyin Dangelo MD Unavailable [phone] Brian Mon MD Primary Care Provider + Encounter Details Date Type Department Care Team (Late st Contact Info) Description 09/29/2019 11:30 AM CDT Office Visit [facility] Hand Surgery [address] [place] [address] Chino Zaldivar MD [address] [place] [address] Laceration of flexor muscle, fascia and tendon [...] as of this encounter Progress Notes * Chino Zaldivar MD - 09/29/2019 11:30 AM CDT Images from the original note were not included. Patient ID: Carito Rausch is a 29 y.o. female. Visit Date: 09/29/2019 Chief Complaint: Status post right wrist surgery HPI: She returns with 5/10 pain. She obtained an MRI recently. She comes in today with multiple questions. Review of Systems There were no vitals taken for this visit. 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 Laceration of flexor muscle, fascia and tendon of right little finger at wrist and hand level, initial encounter PLAN: She is very dissatisfied with the results of her surgery. 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 I am unwilling to do any surgery on her as she believes I called her symptoms even though she sustained the laceration to her right wrist on her own prior to her 1st surgery. We will give her her records today. Procedures documented in this encounter Plan of Treatment Not on file documented as of this encounter Visit Diagnoses Diagnosis Laceration of flexor muscle, fascia and tendon of right little finger at wrist and hand level, initial encounter- Primary documented in this encounter Care Teams Lines Tender Relationship Specialty [place] [address] [address] PCP - General 07/04/19 [place] [address] [address] [address] 11/16/18 documented as of this encounter
--- OUTSIDE RECORDS SUMMARY | 2024-02-24 20:13 | XMS_ITS | Encounter Summary ---
Author Organization [facility] Address [address] [place] [address] Phone Care Team Providers Care Autobody Technician Name Role Phone Huseyin Dangelo MD Unavailable [phone] Brian Mon MD Primary Care Provider + Encounter Details Date Type Department Care Team (Late st Contact Info) Description 10/25/2019 Telephone [facility] Rheumatology [address] [facility] 5th [place] [address] [place] [address] Tadeo Liriano MD [address] [place] [address] Social History Tobacco Use Types [...] encounter Miscellaneous Notes * Telephone Encounter - Tadeo Liriano MD - 10/25/2019 2:12 PM CDT Patient called concerned for a flare because of generalized pain and fatigue, no other symptoms that would suggest an SLE flare. Has been to the ED twice in the last 4 days, labs from 10/22 they all look wnl, was told she had yeast infection and was given diflucan but is not feeling better. Is also very stressed about starting a new job on Sunday. I explained to her that her symptoms are not suggestive of SLE flare at this time and she should just take tylenol for pain and monitor her symptoms. documented in this encounter Plan of Treatment Not on file documented as of this encounter Visit Diagnoses Not on filedocumented in this encounter Additional Health Concerns Infection Onset Date Last Indicated Resolved Time COVID: Recovered Comment:Flag applied in error. Added based on recent COVID infection. 09/04/2019 10/15/2019 11/06/2019 11:15 AM CDT documented as of this encounter Care Teams Autobody Technician Relationship Specialty [place] [address] [address] [address] PCP - General 07/04/19 [place] [address] [address] [place] [address] 11/16/18 documented as of this encounter
--- OUTSIDE RECORDS SUMMARY | 2024-02-24 20:13 | XMS_ITS | Encounter Summary ---
Author Organization [facility] Address [address] [place] [address] Phone Care Team Providers Care Home Care Consultant Name Role Phone Huseyin Dangelo MD Unavailable [phone] Brian Mon MD Primary Care Provider + Reason for Visit * Reason Onset Date Comments Med Management 10/20/2019 Encounter Details Date Type Department Care Team (Late st Contact Info) Description 10/20/[address] [facility] Rheumatology [address] [facility] [address] [facility] [address] [place] [address] Nallely Griffiths CMA Med Management [...] Telephone Encounter - Nallely Griffiths CMA - 10/20/2019 12:22 PM CDT Sent [facility] message and left a VM with updates. * Telephone Encounter - Nallely Griffiths CMA - 10/20/2019 12:20 PM CDT Images from the original note were not included. MARIO Santiago MD ?? I agree! I told her the exact same thing. Given her symptoms I wasn't ok with her going incase she has in infection. I called her PCP office and spoke with Maxine to see if she has been true to following up with their office. She stated last OV was August 2019. Current symptoms reported were given topcp office to possible reach out to her for follow up. There were no appts on file with pcp office for a GI doctor. Stated she may have seen someone outside. We will have pt to postpone the infusion for 1 week due to symptoms and results for COVID test. Previous Messages ----- Message ----- From: Rishi Davis MD Sent: 10/20/2019 ?? 9:49 AM CDT To: Nallely Griffiths CMA Subject: RE: External Labs ? Good morning Nallely! Thank you for getting back to me so quickly! I spent the same amount of time with this patient yesterday and also two weekends ago when I was oncall! I didn???t think she had a UTI, but I also wasn???t sure where to draw the line per her PCP and us you know especially since she was going to get an infusion soon. I think it might be prudent to get her covid results first, on the off chance that it???s positive and we make things worse by immunosuppressing her Please let me know if there is anything I need to do. Thank you! documented in this encounter Plan of Treatment Not on file documented as of this encounter Visit Diagnoses Not on filedocumented in this encounter Additional Health Concerns Infection Onset Date Last Indicated Resolved Time COVID: Recovered Comment:Flag applied in error. Added based on recent COVID infection. 09/04/2019 10/15/2019 11/06/2019 11:15 AM CDT documented as of this encounter Care Teams Home Care Consultant Relationship Specialty [place] [address] [address] [address] PCP - General 07/04/19 [place] [address] [address] [address] 11/16/18 documented as of this encounter
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
--- OUTSIDE RECORDS SUMMARY | 2024-02-24 20:13 | XMS_ITS | Encounter Summary ---
Author Organization [facility] Address [address] [place] [address] Care Team Providers Care Tools Developer Name Role Phone Huseyin Dangelo MD Unavailable [phone] Brian Mon MD Primary Care Provider + Encounter Details Date Type Department Care Team (Late st Contact Info) Description 10/28/2019 8:15 AM CDT [address] [address] Darius Fernandez MD [address] [address] Adrenal insufficiency (CMS/HCC) Discharge Disposition: Discharge to home or [...] Priority Date/Time Associated Diagnosis Comments DHEA-SULFATE Routine 10/28/2019 8:16 AM CDT Adrenal insufficiency (CMS/HCC) ACTH Routine 10/28/2019 8:16 AM CDT Adrenal insufficiency (CMS/HCC) CORTISOL Routine 10/28/2019 8:16 AM CDT Adrenal insufficiency (CMS/HCC) documented in this encounter Results * (ABNORMAL) ACTH (10/28/2019 8:16 AM CDT) ACTH <5.0(L) pg/mL ARPITA MARTIN ([place]ERCEDES) Comment: REFERENCE VALUE 7.2-63 (a.m. collection) Test Performed by: [address] [address] [place] Supervisor: Dima Travis M.D. Ph.D.; CLIA# [id number] Blood specimen (specimen) 10/28/2019 8:16 AM CDT 10/28/2019 8:32 AM CDT Darius Fernandez MD LAB BLOOD ORDERABLES Final Resul t ARPITA OWUSU) [address] [facility] Department [place] [address] * (ABNORMAL) DHEA-sulfate (10/28/2019 8:16 AM CDT) DHEA-S 5.8(L) 98.8 - 340.0 mcg/dL ARPITA MARTIN ([place]ERCEDES) Comment:Testing performed by : [facility], [address] [facility] [place]., [address] Blood specimen (specimen) 10/28/2019 8:16 AM CDT 10/28/2019 12:23 PM CDT us Darius Fernandez MD LAB BLOOD ORDERABLES Final Resul t ARPITA MARTIN (ERIE) [address] [facility] [address] * (ABNORMAL) Cortisol (10/28/2019 8:16 AM CDT) Cortisol <0.1(L) 4.8 - 19.5 mcg/dl ARPITA MARTIN (ERIE) Comment: Interpretive Data Normal Range: ??4.8 - 19.5 mcg/dL; ??Evening: ??Half of morning value. ?? This analyte undergoes marked diurnal variation. ??Ranges indicated apply to morning specimens. ?? Current interpretive data was last revised 2018. Testing performed by: [facility], [address] [place] [address]., [address] Blood specimen (specimen) 10/28/2019 8:16 AM CDT 10/28/2019 11:57 AM CDT us Darius Fernandez MD LAB BLOOD ORDERABLES Final Resul t Performing Organization Address City/[facility]/ZIP Co de Phone Number ARPITA MARTIN (ERIE) [address] [facility] [place] [address] documented in this encounter Visit Diagnoses Diagnosis Adrenal insufficiency (HCC) Glucocorticoid deficiency documented in this encounter Additional Health Concerns Infection Onset Date Last Indicated Resolved Time COVID: Recovered Comment:Flag applied in error. Added based on recent COVID infection. 09/04/2019 10/15/2019 11/06/2019 11:15 AM CDT documented as of this encounter Care Teams Tools Developer Relationship Specialty [place] [address] [address], [place] [address] PCP - General 07/04/19 [place] [address] [address] [place] [address] 11/16/18 documented as of this encounter
--- OUTSIDE RECORDS SUMMARY | 2024-02-24 20:13 | XMS_ITS | Encounter Summary ---
Author Organization [facility] Address [address] [place] [address] Phone Care Team Providers Care Manager Procurement Name Role Phone Huseyin Dangelo MD Unavailable [phone] Brian Mon MD Primary Care Provider + Encounter Details Date Type Department Care Team (Late st Contact Info) Description 11/03/2019 Telephone [facility] Rheumatology [address] [facility] [place] Advanced Medicine 5th [place] [address] [place] [address] Rishi Davis MD [address] [place] [address] Social History Tobacco Use Types [...] Encounter - Rishi Davis MD - 11/03/2019 8:32 PM CDT Patient called today stating she had some questions regarding her Benlysta infusion which she will be starting tomorrow She wanted to know if a lot of people are on this medication to which I answered we have a good number of patients on this whom have done very well in terms of tolerance and disease activity She stated that she was worried about putting this foreign medicine in her body. I explained the rationale behind the use of the medication and offered to send her some reading material about the drug through care everywhere- she stated she had been doing her own reading about the drug. She stated that she did not feel that she needed the medication. I tried to explain that Dr Washington evansought this was the best course of action for her when she evaluated her a few months ago and she was in excellent hands and would be monitored closely during her infusion. documented in this encounter Plan of Treatment Not on file documented as of this encounter Visit Diagnoses Not on filedocumented in this encounter Additional Health Concerns Infection Onset Date Last Indicated Resolved Time COVID: Recovered Comment:Flag applied in error. Added based on recent COVID infection. 09/04/2019 10/15/2019 11/06/2019 11:15 AM CDT documented as of this encounter Care Teams Manager Procurement Relationship Specialty [place] [address] [address] [facility] [address] [place] [address] PCP - General 07/04/19 [place] [address] [address] [facility] [address] [place] [address] 11/16/18 documented as of this encounter
--- OUTSIDE RECORDS SUMMARY | 2024-02-24 20:14 | XMS_ITS | Encounter Summary ---
Author Organization [facility] [email or web address] [facility] Address [address] [place] [address] Phone Care Team Providers Care Alteration Worker Name Role Phone Huseyin Dangelo MD Unavailable [phone] Brian Mon MD Primary Care Provider + Encounter Details Date Type Department Care Team (Late st Contact Info) Description 08/28/2019 Telephone [facility] Rheumatology [facility] 5th [place] [address] [place] [address] Nallely Griffiths CMA Social History Tobacco Use Types Packs/Day Years Used Date Smoking Tobacco: Former Cigarettes Q uit: 12/28/2018 Smokeless Tobacco: Never Alcohol Use Standard Drinks/Week Comments Yes 0 (1 standard drink = 0.6 oz pur e alcohol) occasionally PHQ-2 Answer Date Recorded PHQ-2 Total Score (If total score is 3 or more points, staff should administer the PHQ-9) 0 05/25/2019 Comments Unknown Sex and Gender Information Value Date Recorded Sex Assigned at Not on file Legal Sex Female 10:58 PM CDT Gender Identity Not on file Sexual Orientation Not on file documented as of this encounter Miscellaneous Notes * Telephone Encounter - Nallely Griffiths CMA - 08/28/2019 11:42 AM CDT Patient was retested again for her job today for confirmation of COVID. Spoke with [facility] that didtesting on 08/20 and pt was negative for COVID on 08/20 and all other test dates. Pt went in to get tested again today to confirm. documented in this encounter Plan of Treatment Not on file documented as of this encounter Visit Diagnoses Not on filedocumented in this encounter Additional Health Concerns Infection Onset Date Last Indicated Resolved Time COVID19 08/21/2019 08/21/2019 09/04/2019 3:05 AM CDT documented as of this encounter Care Teams Alteration Worker Relationship Specialty [place] [address] [address] [facility] [address] [place] [address] PCP - General 07/04/19 [place] [address] [address] [facility] [address] [place] [address] 11/16/18 documented as of this encounter
--- OUTSIDE RECORDS SUMMARY | 2024-02-24 20:14 | XMS_ITS | Encounter Summary ---
Author Organization [facility] [employer] [facility] Address [address] [place] [address] Phone Care Team Providers Care Drywall Worker Name Role Phone Huseyin Dangelo MD Unavailable Brian Mon MD Primary Care Provider + Reason for Visit * Reason Onset Date Comments questions 09/18/2019 Encounter Details Date Type Department Care Team (Late st Contact Info) Description 09/18/2019 Telephone [facility] Rheumatology [address] [facility] [address] [place] [address] Nallely Griffiths CMA questions Social History Tobacco [...] Telephone Encounter - Nallely Griffiths CMA - 09/18/2019 11:30 AM CDT Pt called with concerns if constant seizures and night sweats are related to her lupus. She had a EKG that was normal and an EEG that had some abnormalities. Pt is following with Neurology now and has an appt on 09/22. She was started on a seizure medicationcalled Carbamazepine 100mg BID and will start on 400mg every day next week. She want to know: 1. If this medication is ok with the Benlysta? 2. If we can put in a new referral for Neurology here at [facility]. . documented in this encounter Plan of Treatment Not on file documented as of this encounter Visit Diagnoses Not on filedocumented in this encounter Additional Health Concerns Infection Onset Date Last Indicated Resolved Time Exposure, COVID-19 Comment:Added automatically based on COVID19 lab answers indicating exposure risk 09/11/2019 09/11/2019 09/26/2019 3:05 AM C DT documented as of this encounter Care Teams Drywall Worker Relationship Specialty [place] [address] [address] [address] PCP - General 07/04/19 [place] [address] [address] [address] 11/16/18 documented as of this encounter
--- OUTSIDE RECORDS SUMMARY | 2024-02-24 20:14 | XMS_ITS | Encounter Summary ---
Author Organization [facility] Address [address] [facility] [address] [place] [address] Care Team Providers Care Precinct Police Sergeant Name Role Phone Huseyin Dangelo MD Unavailable [phone] Brian Mon MD Primary Care Provider + Encounter Details Date Type Department Care Team (Late st Contact Info) Description 09/19/2019 Orders Only [facility] [address] [facility] [address] [place] [address] Dilan Del Toro MD [address] [facility] [address] [place] [address] Social History Tobacco Use Types [...] Refills Last Filled Start Date End Date levETIRAcetam (KEPPRA) 500 mg tablet Take 1 tablet (500 mg total) by mouth 2 (two) times a day 50 tablet 3 09/19/2019 11/20/2019 documented in this encounter Progress Notes * Dilan Del Toro MD - 09/19/2019 3:38 PM CDT Talked to patient over the phone. She reported that she had mouth skin peeling and itchiness. Instructed her to stop Carbamazepine. I sent script for Keppra 500 mg bid. documented in this encounter Plan of Treatment Not on file documented as of this encounter Visit Diagnoses Not on filedocumented in this encounter Discontinued Medications Medication Sig Discontinue Reason Start Date End Da te levETIRAcetam (KEPPRA) 500 mg tablet Take 1 tablet (500 mg total) by mouth 2 (two) times a day Reorder 08/25/2019 09/19/2019 documented as of this encounter Additional Health Concerns Infection Onset Date Last Indicated Resolved Time Exposure, COVID-19 Comment:Added automatically based on COVID19 lab answers indicating exposure risk 09/11/2019 09/11/2019 09/26/2019 3:05 AM C DT documented as of this encounter Care Teams Precinct Police Sergeant Relationship Specialty Start [place] [address] [address] [place] [address] PCP - General 07/04/19 [place] [address] [address] [place] [address] 11/16/18 documented as of this encounter
--- OUTSIDE RECORDS SUMMARY | 2024-02-24 20:14 | XMS_ITS | Encounter Summary ---
Author Organization [facility] [employer] [facility] Address [address] [place] [address] Phone Care Team Providers Care Protection Specialist Name Role Phone Huseyin Dangelo MD Unavailable [phone] Brian Mon MD Primary Care Provider + Encounter Details Date Type Department Care Team (Late st Contact Info) Description 09/11/2019 Telephone [facility] Rheumatology [facility] 5th [place] [address] [place] [address] Nallely Griffiths CMA Social History [...] Telephone Encounter - Nallely Griffiths CMA - 09/11/2019 4:41 PM CDT Called patient regarding mychart message. Left her know if symptoms worsen to please go to the ER for evaluation. documented in this encounter Plan of Treatment Not on file documented as of this encounter Visit Diagnoses Not on filedocumented in this encounter Care Teams Protection Specialist Relationship Specialty [place] [address] [address] [address] PCP - General 07/04/19 [place] [address] [address] [address] 11/16/18 documented as of this encounter
--- OUTSIDE RECORDS SUMMARY | 2024-02-24 20:14 | XMS_ITS | Encounter Summary ---
Author Organization [facility] [employer] [facility] Address [address] [place] [address] Phone Care Team Providers Care Interpretive Program Coordinator Name Role Phone Huseyin Dangelo MD Unavailable [phone] Brian Mon MD Primary Care Provider + Reason for Visit * Reason Onset Date Comments Med Management 07/24/2019 Encounter Details Date Type Department Care Team (Late st Contact Info) Description 07/24/2019 Telephone [facility] Rheumatology [address] [facility] Medical Office Building [address] [place] [address] Nallely Griffiths [facility] Med Management Social History Tobacco Use Types Packs/Day Years Used Date Smoking Tobacco: Former Smokeless Tobacco: Never Alcohol Use Standard Drinks/Week Comments Not Currently 0 (1 standard drink = 0.6 oz pur e alcohol) PHQ-2 Answer Date Recorded PHQ-2 Total Score [...] Telephone Encounter - Nallely Griffiths CMA - 07/24/2019 9:03 AM CDT I spoke in detail with patient this morning regarding the next steps for medication. 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 She confired the form was received and will fill out and fax back to the office. Pt it aware off documented calls are sent to Dr Delarosa for updates. Explained to patient that this process for assistance is not completed in our office therefore we have no time frame of when or if sheis approved. Pt understands to continue with Hcqs and prednisone for now. documented in this encounter Plan of Treatment Not on file documented as of this encounter Visit Diagnoses Not on filedocumented in this encounter Care Teams Interpretive Program Coordinator Relationship Specialty [place] [address] [address] [facility] [address] [place] [address] PCP - General 07/04/19 [place] [address] [address] [place] [address] 11/16/18 documented as of this encounter
--- OUTSIDE RECORDS SUMMARY | 2024-02-24 20:14 | XMS_ITS | Encounter Summary ---
Author Organization [facility] Address [address] [place] [address] Phone Care Team Providers Care Manager Unit Name Role Phone Huseyin Dangelo MD Unavailable [phone] Brian Mon MD Primary Care Provider + Encounter Details Date Type Department Care Team (Late st Contact Info) Description 07/29/2019 9:00 AM CDT Telemedicine [facility] Rheumatology [address] [facility] Medical Office Building [address] [place] [address] Carolina Delarosa MD [facility] [address] [place] [address] Lupus (CMS/HCC) (Primary Dx) Social [...] Progress Notes * Carolina Delarosa MD - 07/29/2019 9:00 AM CDT PATIENT NAME: Carito Rausch : 1990 07/29/2019 This was a telemedicine visit with Carito Rausch alone which took place via Telephone. During the visit, I was located at home in [place] and the patient was located at home in [place]. The session started at 8.55 am and ended at 9.15 am. The patient has been informed that the [...] billed and/or responsible for any applicable copayments. Carolina Delarosa MD HISTORY OF PRESENT ILLNESS: ia a 29 y.o. female who has been referred for a 2nd opinion for lupus by her current bond analyst. Dr. Lobo. The patient underwent of spontaneous 2nd trimester loss 2 years ago.She was previously healthy and reported no symptoms [...] She also has a positive double-stranded DNA, CORD CUTTER antibody and a low C4 and C3 level. She has borderline elevated inflammatory markers. Given her history of she has been worked up for APS and has borderline cardiolipin antibodies but other labs have been stable Symptomatic we she has polyarticular joint pain and swelling with morning stiffness. She has recurrent oral ulcers. She has chest pain which is more central and towards the left arm but does not sound like classical pleuritic pain. She also has diffuse pain, dizziness, back pain and a lot of GI issues with nausea and diarrhea. She has not had a GI workup for diarrhea as yet. In terms of her medications she has been chronically on steroids for the last 2 years currently on 10 mg in the morning and 2.5 mg at night. She reports she is currently in a flare. She also takes hydroxychloroquine 200 mg a day having only had been on this for the last 7 months. Previously she has tried mycophenolate, azathioprine for a couple of weeks each and discontinued dueto GI side effects and oral ulcers respectively. She was also on leflunomide for 6-7 months with seem to have helped her joint symptoms but this was stopped due to low white counts. She has tried gabapentin in the past for pain with dizziness. It appears dizziness is a pretty chronic symptom for her. She has also tried Flexeril, NSAIDs and tramadol in the past. She takes Xanax for anxiety on a daily basis Past medical history is significant for recurrent genital herpes and lupus Family history she has an uncle with a diagnosis of ankylosing spondylitis Personal history occasional marijuana use Interim She has been calling for a lot with flares but does not take high dose steroid if prescribed due toconcerns of side effects and because she feels she gets swollen. She does seem to have active lupusbased on low complement levels. However her symptoms are primarily of pain and dizziness including back pain. The patient has actually recently started Lexapro, trazodone and Xanax and these seem to have helped his symptoms significantly suggesting that part of her symptoms were driven by depression and anxiety. She has not really been on a steady regimen because she self discontinues meds due to perceived side effects. I have advised her to try Benlysta and we have been working to get her Benlysta through patient assistance. ALLERGIES: Allergies Allergen Reactions ??? Methylprednisolone Anaphylaxis and Syncope Syncope ??? Venlafaxine Itching CURRENT MEDICATION: Current Outpatient Medications: ??? albuterol (PROAIR RESPICLICK) 90 mcg/actuation inhaler, Inhale 2 puffs every 6 (six) hours as needed for wheezing, Disp: , Rfl: ??? ALPRAZolam (XANAX) 0.25 mg tablet, Take 0.25 mg by mouth 3 (three) times a day as needed , Disp: , Rfl: ??? belimumab (Benlysta) auto-injector, Inject 1 mL (200 mg total) under the skin every 7 days, Disp: 4 Syringe, Rfl: 3 ??? diclofenac sodium (VOLTAREN) 1 % gel, Apply 2 g topically 3 (three) times a day Apply to arthritis joints PRN, Disp: 2 Tube, Rfl: 2 ??? ergocalciferol (VITAMIN D) 50,000 unit capsule, TAKE 1 CAPSULE BY MOUTH ONE TIME PER WEEK, Disp: , Rfl: ??? escitalopram (LEXAPRO) 10 mg tablet, Take 10 mg by mouth daily, Disp: , Rfl: ??? hydroxychloroquine (PLAQUENIL) 200 mg tablet, Take 100 mg by mouth nightly, Disp: , Rfl: ??? metoclopramide (REGLAN) 10 mg tablet, Take 1 tablet (10 mg total) by mouth every 8 (eight) hours as needed (Nausea), Disp: 15 tablet, Rfl: 0 ??? omeprazole (PriLOSEC) 20 mg capsule, Take 20 mg by mouth daily, Disp: , Rfl: ??? predniSONE (DELTASONE) 1 mg tablet, Please take 2 tablets at night for 2 weeks and then 1 tablet at night for 2 weeks and stop, Disp: 50 tablet, Rfl: 0 ??? predniSONE (DELTASONE) 10 mg tablet, Take 10 mg by mouth daily , Disp: , Rfl: ??? predniSONE (DELTASONE) 5 mg tablet, Take 5 mg by mouth daily , Disp: , Rfl: PHYSICAL EXAM: There were no vitals taken for this visit. Physical Exam Physical examination could not be performed as this was a video visit. The patient did seem to havesome puffiness in her hands on the screen. She also had a small erythematous area on the right elbow LABORATORY DATA: Lab Results Component Value Date WBC 6.9 07/21/2019 HGB 11.0 (L) 07/21/2019 HCT 33.5 (L) 07/21/2019 MCV 89.3 07/21/2019 LABPLAT 251 07/21/2019 Lab Results Component Value Date AST 10 07/21/2019 ALT 9 07/21/2019 CREATININE 0.73 07/21/2019 Lab Results Component Value Date SEDRATE 25 (H) 05/24/2019 Lab Results Component Value Date CRP 13.8 (H) 05/24/2019 ASSESSMENT AND PLAN: SLE In conclusion this is a 29-year-old female with a diagnosis of lupus Again I think her diagnosis pretty clear she has a positive BARAK 1:1280, positive double-stranded DNA, low C3, C4, positive CORD CUTTER. Her APS serologies are largely negative. I discussed with the patient that I do not think her diagnosis of lupus is in question. She does have some back pain but this is not limiting to her, there is family history of ankylosingspondylitis. If she has persistent back issues we may have to work this up with SI joint films. At this point the patient feels more settled since she has been on Lexapro and Xanax. I have advised her to stay with prednisone 15 mg for now. She will also continue with hydroxychloroquine. As soonas she is able to start the Benlysta I would advise that she does. I spoke at length to Carito and explain to her that she needs to be on a steady regimen for lupusbefore she sees her symptoms improve. Till date she has used medicines for a week or 2 and has alsobeen on fluctuating doses of prednisone which really have not allow her to get on a stable medication regimen. The only drug that she took for appeared of time was leflunomide which was discontinued due to low counts. At this point she seems to be agreeable to the plan of care. We also went over her labs which showed active disease. I will see her back in clinic where we can actually do of full physical assess DISPOSITION: The patient will return follow up in 3 month s Carolina Delarosa MD documented in this encounter Plan of Treatment Not on file documented as of this encounter Visit Diagnoses Diagnosis Lupus- Primary Systemic lupus erythematosus documented in this encounter Care Teams Manager Unit Relationship Specialty [place] [address] [address] [address] PCP - General 07/04/19 [place] [address] [address] [address] 11/16/18 documented as of this encounter
--- OUTSIDE RECORDS SUMMARY | 2024-02-24 20:14 | XMS_ITS | Encounter Summary ---
Author Organization [facility] [employer] [facility] Address [address] [place] [address] Phone Care Team Providers Care Driver Manager Name Role Phone Huseyin Dangelo MD Unavailable [phone] Brian Mon MD Primary Care Provider + Reason for Referral * Consultation (Routine) - Closed Specialty Diagnoses / Procedures Referred By Contac t Referred To Contact Otolaryngology Diagnoses History of ear infections Griffin Burr MD Phone: tel: fax: [facility] (All Locations) Referral ID Status Reason Start Date Expiration Date V isits Requested Visits Authorized [id number] Closed Specialty Services Required 08/22/2019 03/02/2021 3 3 Question Answer Please select the performing region: [facility] (All Locations) [167] # of visits: 1 Comments Recurrent vertigo and ear infections Encounter Details Date Type Department Care Team (Late st Contact Info) Description 08/22/2019 Telephone [facility] Rheumatology [address] [facility] Medicine 5th [place] [address] [place] [address] Griffin Burr MD [address] [facility] [address] [place] [address] Social History Tobacco Use Types [...] Telephone Encounter - Griffin Burr MD - 08/22/2019 7:49 AM CDT Pt called this morning reporting seizure yesterday. Stated she was at work and felt dizzy, stood up, and then had seizure for about 20 s. Was seen at OSH and was told she had elevated prolactin level. She was told she should have follow up with neurology and ENT but these were not scheduled. Pt currently states she is doing okay and does not have any symptoms. States 2 days prior to seizure was seen in ED for vaginal discharge and was diagnosed with BV/trichomonas. Got IV ceftriaxone. Pt states she has had seizure with CTX in the past as well. Will refer to neuro/ENT. Will route this to her primary rhuematologist, Dr. Delarosa. Pt is requesting acall back. documented in this encounter Plan of Treatment Scheduled Referrals Name Type Priority Associated Diagnoses Order Schedule Ambulatory referral to ENT Outpatient Referral Routine History of ear infections Expected: 09/05/2019 (Approximate), Expires: 08/21/2020 documented as of this encounter Visit Diagnoses Diagnosis Seizures (HCC)- Primary Other convulsions History of ear infections documented in this encounter Additional Health Concerns Infection Onset Date Last Indicated Resolved Time COVID19 08/21/2019 08/21/2019 09/04/2019 3:05 AM CDT documented as of this encounter Care Teams Driver Manager Relationship Specialty [place] [address] [facility] [address] [place] [address] PCP - General 07/04/19 [place] [address] [address] 11/16/18 documented as of this encounter
--- OUTSIDE RECORDS SUMMARY | 2024-02-24 20:14 | XMS_ITS | Encounter Summary ---
Author Organization [facility] [employer] [facility] Address [address] [place] [address] Phone Care Team Providers Care Hand Etcher Name Role Phone Huseyin Dangelo MD Unavailable [phone] Brian Mon MD Primary Care Provider + Encounter Details Date Type Department Care Team (Late st Contact Info) Description 09/12/2019 Telephone [facility] Rheumatology [address] [facility] Advanced Medicine 5th [place] [address] [place] [address] Carolina Delarosa MD [address] [facility] [address] [place] [address] Social History Tobacco Use Types [...] Telephone Encounter - Carolina Delarosa MD - 09/12/2019 1:00 PM CDT Benlysta ordered. Please let pre auth know documented in this encounter Plan of Treatment Not on file documented as of this encounter Visit Diagnoses Not on filedocumented in this encounter Additional Health Concerns Infection Onset Date Last Indicated Resolved Time Exposure, COVID-19 Comment:Added automatically based on COVID19 lab answers indicating exposure risk 09/11/2019 09/11/2019 09/26/2019 3:05 AM C DT documented as of this encounter Care Teams Hand Etcher Relationship Specialty [place] [address] [address] [place] [address] PCP - General 07/04/19 [place] [address] [address] [place] [address] 11/16/18 documented as of this encounter
--- OUTSIDE RECORDS SUMMARY | 2024-02-24 20:14 | XMS_ITS | Encounter Summary ---
Author Organization [facility] Address [address] [place] [address] Care Team Providers Care Assistant Professor Of Mathematics Name Role Phone Huseyin Dangelo MD Unavailable [phone] Brian Mon MD Primary Care Provider + Encounter Details Date Type Department Care Team (Late st Contact Info) Description 08/12/2019 Orders Only [facility] [address] [place] [address] Dang Denis MD [address] [place] [id number] Rectal bleeding (Primary Dx); Abdominal pain Social History Tobacco Use Types Packs/Day [...] as of this encounter Visit Diagnoses Diagnosis Rectal bleeding- Primary Hemorrhage of rectum and anus Abdominal pain Abdominal pain, unspecified site documented in this encounter Care Teams Assistant Professor Of Mathematics Relationship Specialty [place] [address] [address] [place] [address] PCP - General 07/04/19 [place] [address] [address] [place] [address] 11/16/18 documented as of this encounter
--- OUTSIDE RECORDS SUMMARY | 2024-02-24 20:14 | XMS_ITS | Encounter Summary ---
Author Organization [facility] Healthcare Address [address] [place] [address] Care Team Providers Care Coupler Name Role Phone Huseyin Dangelo MD Unavailable [phone] Brian Mon MD Primary Care Provider + Reason for Visit * Reason Comments Allergic Reaction Encounter Details Date Type Department Care Team (Late st Contact Info) Description 08/20/2019 9:58 AM CDT - 08/20/2019 10:23 AM CDT Emergency [facility] Emergency Department [address] [place] [address] Urticaria (Primary Dx) Discharge Disposition: Discharge to home [...] Sign Reading Time Taken Comments Blood Pressure 127/73 08/20/2019 10:07 AM CDT Pulse 94 08/20/2019 10:07 AM CDT Temperature 36.7 ??C (98 ??F) 08/20/2019 10:07 AM CDT Respiratory Rate 12 08/20/2019 10:07 AM CDT Oxygen Saturation 98% 08/20/2019 10:07 AM CDT Inhaled Oxygen Concentration - - Weight - - Height - - Body Mass Index - - documented in this encounter Discharge Diagnoses Diagnosis Urticaria, unspecified - URTICARIA, UNSPECIFIED Hypertensive chronic kidney disease with stage 1 through stage 4 chronic kidney disease, or unspecified chronic kidney disease - HYPERTENSIVE CHRONIC KIDNEY DISEASE WITH STAGE 1 THROUGH STAGE 4 CHRONIC KIDNEY DISEASE, OR UNSPECIF Chronic kidney disease, unspecified - CHRONIC KIDNEY DISEASE, UNSPECIFIED Anemia, unspecified - ANEMIA, UNSPECIFIED Unspecified asthma, uncomplicated - UNSPECIFIED ASTHMA, UNCOMPLICATED Major depressive disorder, single episode, unspecified - MAJOR DEPRESSIVE DISORDER, SINGLE EPISODE, UNSPECIFIED Fibromyalgia - FIBROMYALGIA Unspecified myalgia and myositis Systemic lupus erythematosus, unspecified (HCC) - SYSTEMIC LUPUS ERYTHEMATOSUS, UNSPECIFIED Rheumatoid arthritis, unspecified (HCC) - RHEUMATOID ARTHRITIS, UNSPECIFIED Unspecified convulsions (HCC) - UNSPECIFIED CONVULSIONS Personal history of nicotine dependence - PERSONAL HISTORY OF NICOTINE DEPENDENCE Gastro-esophageal reflux disease without esophagitis - GASTRO-ESOPHAGEAL REFLUX DISEASE WITHOUT ESOPHAGITIS documented in this encounter Discharge Instructions * Discharge Instructions* Megan Torres NP - 08/20/2019 10:[address] while taking Atarax as it may cause drowsiness and sedation. Follow up with Dr. Mon without fail. * Attachments The following attachments cannot be sent through Care Everywhere. * Urticaria (Church Organist) (Bengali) documented in this encounter Medications at Time of Discharge albuterol (PROAIR RESPICLICK) 90 mcg/actuation inhalerIndicatio ns:Acute Asthma Attack Inhale 2 puffs every 6 (six) hours as needed for wheezing 11/20/2019 ALPRAZolam (XANAX) 0.25 mg tablet Take 0.25 mg by mouth 3 (three) times a day as needed 07/15/2020 belimumab (Benlysta) auto-injector Inject 1 mL (200 mg total) under the skin every 7 days 4 Syringe 3 07/23/2019 09/15/2020 ergocalciferol (VITAMIN D) 50,000 unit capsule TAKE 1 CAPSULE BY MOUTH ONE TIME PER WEEK 06/21/2019 09/15/2020 escitalopram (LEXAPRO) 10 mg tablet Take 10 mg by mouth daily 07/11/2019 08/26/2019 fexofenadine (KERI) 60 mg tablet Take 1 tablet (60 mg total) by mouth 2 (two) times a day 20 tablet 08/20/2019 11/20/2019 hydroxychloroqui ne (PLAQUENIL) 200 mg tablet Take 100 mg by mouth nightly 10/15/2019 hydrOXYzine (ATARAX) 25 mg tabletIndication s:Urticaria Take 1 tablet (25 mg total) by mouth every 6 (six) hours 12 tablet 08/20/2019 11/20/2019 ketorolac (TORADOL) 10 mg tablet Take 10 mg by mouth every 6 (six) hours as needed for pain 11/20/2019 omeprazole (PriLOSEC) 20 mg capsule Take 20 mg by mouth daily 06/21/2019 01/03/2021 predniSONE (DELTASONE) 1 mg tablet Take 1 mg by mouth daily 11/03/2019 predniSONE (DELTASONE) 10 mg tablet Take 12.5 mg by mouth daily 09/10/2019 traZODone (DESYREL) 150 mg tabletIndication s:takes on 75mg Take 150 mg by mouth nightly 11/20/2019 documented as of this encounter Ordered Prescriptions Prescription Sig Dispense Quantity Refills Last Filled Start Date End Date fexofenadine (KERI) 60 mg tablet Take 1 tablet (60 mg total) by mouth 2 (two) times a day 20 tablet 08/20/2019 11/20/2019 hydrOXYzine (ATARAX) 25 mg tabletIndications: Urticaria Take 1 tablet (25 mg total) by mouth every 6 (six) hours 12 tablet 08/20/2019 11/20/2019 documented in this encounter Discharge Disposition Disposition Code Departure Means Destination Discharge to home or self care documented in this encounter ED Notes * Megan Torres NP - 08/20/2019 10:16 AM CDT HPI Chief Complaint Patient presents with ??? Allergic Reaction 29 y.o. year old female with PMHX Anemia Asthma Chronic diarrhea Chronic kidney disease Depression Fibromyalgia Fibromyalgia Hypertension Lupus (CMS/HCC) PONV (postoperative nausea and vomiting) 07/13/2015: Rheumatoid arthritis (CMS/HCC) Seizures (CMS/HCC); accompanied by self presents to ED with c/o itching Denies fever, chills, nausea, vomiting, diarrhea, SOB, CP, numbness, tingling. Pt noticed redness and itching to bilateral eyes 1 night ago. Pt took Benadryl for relief. Pt denies new soaps, tolietries or detergents. No other complaint at this time. Patient History Patient Active Problem List Diagnosis Date Noted ??? Nausea and vomiting 07/16/2019 ??? Epigastric [...] Medical History: Diagnosis Date ??? Anemia ??? Asthma ??? Chronic diarrhea ??? Chronic kidney disease ??? Depression ??? Fibromyalgia ??? Fibromyalgia ??? Hypertension ??? Lupus (CMS/HCC) ??? PONV (postoperative nausea and vomiting) ??? 07/13/2015 ??? Rheumatoid arthritis (CMS/HCC) ??? Seizures (CMS/HCC) Past Surgical History: Procedure Laterality Date ??? APPENDECTOMY ??? COLONOSCOPY 07/29/2019 1st ??? DILATION AND CURETTAGE OF UTERUS ??? HAND SURGERY ??? WRIST SURGERY Right 12/09/2018 rt wrist median nerve repair, allograft nerve wrap application Family History Problem Relation Age of Onset ??? Gout Mother ??? Heart disease Father ??? Stroke Father ??? Colon cancer Other Social History Tobacco Use ??? Smoking status: Former Smoker Last attempt to quit: 12/28/2018 Years since quittin.6 ??? Smokeless tobacco: Never Used Substance Use Topics ??? Alcohol use: Yes Comment: occasionally ??? Drug use: Yes Types: Marijuana Comment: smoked last night Social History Social History Narrative ??? Not on file Review of Systems Review of Systems Constitutional: Negative. Negative for chills and fever. HENT: Negative. Negative for ear pain and sore throat. Eyes: Positive for itching. Negative for pain and visual disturbance. Respiratory: Negative. Negative for cough and shortness of breath. Cardiovascular: Negative. Negative for chest pain and palpitations. Gastrointestinal: Negative. Negative for abdominal pain and vomiting. Genitourinary: Negative. Negative for dysuria and hematuria. Musculoskeletal: Negative. Negative for arthralgias and back pain. Skin: Negative. Negative for color change and rash. Neurological: Negative. Negative for seizures and syncope. Psychiatric/Behavioral: Negative. All other systems reviewed and are negative. Physical Exam ED Triage Vitals [08/20/19 1007] Temp Pulse Resp BP SpO2 36.7 ??C (98 ??F) 94 12 127/73 98 % Temp src Heart Rate Source [...] ear normal. Nose: Nose normal. Mouth/Throat: Lips: [place]. Mouth: Mucous membranes are moist. Eyes: General: Lids are normal. No visual field deficit. Conjunctiva/sclera: Conjunctivae normal. Right eye: No exudate. Left eye: No exudate. Neck: Musculoskeletal: Full passive range of motion [...] no abdominal tenderness. There is no guarding. Lymphadenopathy: Cervical: No cervical adenopathy. Skin: General: [...] is cooperative. Thought Content: Thought content normal. Cognition and Memory: Cognition normal. Judgment: Judgment normal. MDM MDM Final diagnoses: Urticaria Megan Torres NP 08/20/19 1021 Cosigned by Esau Perry MD at 08/20/2019 3:13 PM CDT Associated attestation - Esau Perry MD - 08/20/2019 3:13 PM CDT ED Attestation I agree with management. * Chaitanya Jang RN - 08/20/2019 10:03 AM CDT Pt arrives with C/O possible allergic reaction to medication yesterday. Pt was treated for STI yesterday and relays her eyes began itching approx 5 hours after receiving medication. Pt also relays she can not taste anything and believes she has Covid now. Pt has no other sx. documented in this encounter Plan of Treatment Not on file documented as of this encounter Visit Diagnoses Diagnosis Urticaria- Primary Unspecified urticaria documented in this encounter Care Teams Coupler Relationship Specialty [place] [id number] [address] PCP - General 07/04/19 [place] [address] [address] 11/16/18 documented as of this encounter
--- OUTSIDE RECORDS SUMMARY | 2024-02-24 20:14 | XMS_ITS | Encounter Summary ---
Author Organization [facility] Address [address] [place] [address] Care Team Providers Care Hand Salter Name Role Phone Huseyin Dangelo MD Unavailable [phone] Brian Mon MD Primary Care Provider + Encounter Details Date Type Department Care Team (Late st Contact Info) Description 08/01/2019 Telephone [facility] Gastroenterology at [address] [place] [address] Migdalia Bruno MA Social History Tobacco Use [...] encounter Miscellaneous Notes * Telephone Encounter - Migdalia Bruno MA - 08/01/2019 4:01 PM CDT Pt called in c/o being hot, says she feels like she has a fever, abd pain and she says she feels like she is having an allergic reaction. States she will go to the ER if it gets worse. Call back number [phone] documented in this encounter Plan of Treatment Not on file documented as of this encounter Visit Diagnoses Not on filedocumented in this encounter Care Teams Hand Salter Relationship Specialty [place] [address] [address] [address] PCP - General 07/04/19 [place] [address] [address] [place] [address] 11/16/18 documented as of this encounter
--- OUTSIDE RECORDS SUMMARY | 2024-02-24 20:14 | XMS_ITS | Encounter Summary ---
Author Organization [facility] Address [address] [place] [address] Phone Care Team Providers Care Radiotelephone Operator Name Role Phone Huseyin Dangelo MD Unavailable [phone] Brian Mon MD Primary Care Provider + Encounter Details Date Type Department Care Team (Late st Contact Info) Description 09/12/2019 Documentation [facility] Rheumatology [address]th [place] [address] [place] [address] Tadeo Liriano MD [address] [place] [address] Social History Tobacco Use Types [...] Progress Notes * Tadeo Liriano MD - 09/12/2019 5:14 AM CDT Patient called at 5 am to get her lab results from an ER visit from yesterday because she wasn't able to see the results in 'MyChart'. Tells me she is having fever, chills, chest pain 'under her boobs'. No other symptoms and stated she just wanted to know her labs results. Vitals signs were normal at her ED visit. Labs were overall unremarkable, including (-) COVID test, (-) troponin, normal ESR and CRP, normal ECG and CXR. I will let her primary production control pegboard clerk, Dr Delarosa, know since patient wishes to speak with her. Cosigned by Carolina Delarosa MD at 09/12/2019 1:08 PM CDT documented in this encounter Plan of Treatment Not on file documented as of this encounter Visit Diagnoses Not on filedocumented in this encounter Additional Health Concerns Infection Onset Date Last Indicated Resolved Time Exposure, COVID-19 Comment:Added automatically based on COVID19 lab answers indicating exposure risk 09/11/2019 09/11/2019 09/26/2019 3:05 AM C DT documented as of this encounter Care Teams Radiotelephone Operator Relationship Specialty [place] [address] [address] [address] PCP - General 07/04/19 [place] [address] [address] [address] 11/16/18 documented as of this encounter
--- OUTSIDE RECORDS SUMMARY | 2024-02-24 20:14 | XMS_ITS | Encounter Summary ---
Author Organization [facility] Healthcare Address [address] [place] [address] Care Team Providers Care Oil Sprayer Name Role Phone Huseyin Dangelo MD Unavailable [phone] Brian Mon MD Primary Care Provider + Encounter Details Date Type Department Care Team (Late st Contact Info) Description 07/27/2019 Orders Only [facility] [address] [place], [place] [id number] Dang Denis MD [address] [place] [address] Pre-op testing (Primary Dx) Social History Tobacco Use Types [...] of this encounter Progress Notes * Harriett Childers MA - 07/27/2019 9:53 AM CDT Pre-op COVID-19 testing at [facility] documented in this encounter Miscellaneous Notes * Addendum Note - Heidi Calix - 07/27/2019 9:53 AM CDTAddended by: HEIDI CALIX on: 07/27/2019 01:34 PM Modules accepted: Orders documented in this encounter Plan of Treatment Not on file documented as of this encounter Results * COVID-19 Coronavirus RNA Nasopharyngeal (07/27/2019 10:00 AM CDT) COVID-19 RNA Negative Negative ARPITA POLLARD Comment: Testing performed by [facility] ([phone]). This test is performed using the [employer] Xpert Xpress SARS-CoV-2 assay. ??This is a real-time RT-PCR test intended for the qualitative detection of nucleic acid from the SARS-CoV-2. ??This assay has been reviewed by the FDA for Emergency Use Authorization (EUA). The performance characteristics have been verified by the [facility]. ??Results must be considered in the clinical context and a negative result does not rule out infection. Nasopharyngeal 07/27/2019 10 :00 AM CDT 07/27/2019 2:19 PM CDT Narrative ARPITA POLLARD - 07/27/2019 3:34 PM CDT Is the patient experiencing any symptoms consistent with COVID (eg. Fever, cough, shortness of breath)?->No What is the reason for testing?->Resident of congregate living facility, e.g. half-way, SNF Dang Denis MD LAB MICROBIOLOGY - GENERAL ORDERABLES Final Result ARPITA [address] [address] Department [place] [address] documented in this encounter Visit Diagnoses Diagnosis Pre-op testing- Primary Unspecified pre-operative examination Pre-op testing Unspecified pre-operative examination documented in this encounter Additional Health Concerns Infection Onset Date Last Indicated Resolved Time COVID: Suspected 07/27/2019 07/27/2019 07/28/2019 3:34 PM CDT documented as of this encounter Care Teams Oil Sprayer Relationship Specialty [place] [address] [address] [place] [address] PCP - General 07/04/19 [place] [address] [address] [place] [address] 11/16/18 documented as of this encounter
--- OUTSIDE RECORDS SUMMARY | 2024-02-24 20:14 | XMS_ITS | Encounter Summary ---
Author Organization [facility] Address [address] [place] [address] Care Team Providers Care Railroad Firer/Fireman Name Role Phone Huseyin Dangelo MD Unavailable [phone] Brian Mon MD Primary Care Provider + Encounter Details Date Type Department Care Team (Late st Contact Info) Description 08/14/2019 Orders Only [facility] Gastroenterology at [address] [place] [phone] Migdalia Bruno MA Social History Tobacco Use [...] Discontinue Reason Start Date End Da te metoclopramide (REGLAN) 10 mg tablet Take 1 tablet (10 mg total) by mouth every 8 (eight) hours as needed (Nausea) 07/21/2019 08/14/2019 documented as of this encounter Care Teams Railroad Firer/Fireman Relationship Specialty [place] [address] [address] [facility] [address] [place] [address] PCP - General 07/04/19 [place] [address] [address] [facility] [place] [address] 11/16/18 documented as of this encounter
--- OUTSIDE RECORDS SUMMARY | 2024-02-24 20:14 | XMS_ITS | Encounter Summary ---
Author Organization [facility] Address [address] [place] [address] Care Team Providers Care Guard Captain Name Role Phone Huseyin Dangelo MD Unavailable [phone] Brian Mon MD Primary Care Provider + Encounter Details Date Type Department Care Team (Late st Contact Info) Description 09/24/2019 Orders Only [facility] [address] [facility] [address] [address] [place] [phone] [place] [address] [facility] [address] [place] [address] Laceration of flexor muscle, fascia [...] documented as of this encounter Care Teams Guard Captain Relationship Specialty [place] [address] [address] [place] [address] PCP - General 07/04/19 [place] [address] [address] [place] [address] 11/16/18 documented as of this encounter
--- OUTSIDE RECORDS SUMMARY | 2024-02-24 20:14 | XMS_ITS | Encounter Summary ---
Author Organization [facility] Address [address] [place] [address] Care Team Providers Care Loading Inspector Name Role Phone Huseyin Dangelo MD Unavailable Brian Mon MD Primary Care Provider + Encounter Details Date Type Department Care Team (Late st Contact Info) Description 09/24/2019 Orders Only [facility] Information Management [address] [place] [address] Scanning, Provider Social History Tobacco Use Types Packs/Day [...] Procedure Name Priority Date/Time Associated Diagnosis Comments SCAN - RADIOLOGY/IMAGING 09/24/2019 1:28 PM CDT documented in this encounter Results * SCAN - RADIOLOGY/IMAGING (09/24/2019 1:28 PM CDT) Anatomical Region Laterality Modality Other us Provider Scanning Final Result documented in this encounter Visit Diagnoses Not on filedocumented in this encounter Additional Health Concerns Infection Onset Date Last Indicated Resolved Time Exposure, COVID-19 Comment:Added automatically based on COVID19 lab answers indicating exposure risk 09/11/2019 09/11/2019 09/26/2019 3:05 AM C DT documented as of this encounter Care Teams Loading Inspector Relationship Specialty [place] [address] [address] [address] PCP - General 07/04/19 [place] [address] [address] [address] 11/16/18 documented as of this encounter
--- OUTSIDE RECORDS SUMMARY | 2024-02-24 20:14 | XMS_ITS | Encounter Summary ---
Author Organization [facility] Address [address] [place] [address] Phone Care Team Providers Care Resident Care Coordinator Name Role Phone Huseyin Dangelo MD Unavailable Brian Mon MD Primary Care Provider + Encounter Details Date Type Department Care Team (Late st Contact Info) Description 09/18/2019 Telephone [facility] Rheumatology [address] [place] [address] Carolina Delarosa MD [address] [place] [address] Social History Tobacco Use Types [...] Telephone Encounter - Carolina Delarosa MD - 09/18/2019 2:25 PM CDT Spoke with patient 09/17 Pt had a abnormal EEG with temporal lobe activity Sheis scheduled to see neurology in [facility] I will order MRI brain with contrast to make sure there is no temporal lobe lesion. I would would imagine she would be more symptomatic if there was temporal encephalitis Might need a LP if MRI abn Nallely 1. Please set her up for a MRI with contrast as urgent . 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 Please refer to neurology as NAHOMY for temporal seizures , see EEG in Epic documented in this encounter Plan of Treatment Not on file documented as of this encounter Visit Diagnoses Not on filedocumented in this encounter Additional Health Concerns Infection Onset Date Last Indicated Resolved Time Exposure, COVID-19 Comment:Added automatically based on COVID19 lab answers indicating exposure risk 09/11/2019 09/11/2019 09/26/2019 3:05 AM C DT documented as of this encounter Care Teams Resident Care Coordinator Relationship Specialty [place] [address] [address] [place] [address] PCP - General 07/04/19 [place] [address] [address] [place] [address] 11/16/18 documented as of this encounter
--- OUTSIDE RECORDS SUMMARY | 2024-02-24 20:14 | XMS_ITS | Encounter Summary ---
Author Organization [facility] Medical [facility] Address [address] [place] [address] Care Team Providers Care Front End Developer Designer Name Role Phone Huseyin Dangelo MD Unavailable [phone] Brian Mon MD Primary Care Provider + Encounter Details Date Type Department Care Team (Late st Contact Info) Description 08/26/2019 9:00 AM CDT Office Visit [facility] [place] [facility] [address] [place] [id number] Dilan Del Toro MD [address] [facility] [address] [place] [address] Epilepsy undetermined as to focal or generalized (CMS/HCC) (Primary Dx) Social History Tobacco Use [...] Sign Reading Time Taken Comments Blood Pressure 110/77 08/26/2019 8:59 AM CDT Pulse 83 08/26/2019 8:59 AM CDT Temperature - - Respiratory Rate - - Oxygen Saturation - - Inhaled Oxygen Concentration - - Weight 75.1 kg (165 lb 9.6 oz) 08/26/2019 8:59 A M CDT Height 165.1 cm (5' 5 ) 08/26/2019 8:59 AM CDT Body Mass Index 27.56 08/26/2019 8:59 AM CDT documented in this encounter Ordered Prescriptions Prescription Sig Dispense Quantity Refills Last Filled Start Date End Date carBAMazepine (TEGretol) 100 mg chewable tabletIndications: 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) Take one tablet by mouth twice a day for one week, then 2 tablets twice a day 120 tablet 3 08/26/2019 0 documented in this encounter Progress Notes * Dilan Del Toro MD - 08/26/2019 9:00 AM CDT Subjective/Objective Patient ID: Carito Rausch is a 29 y.o. female. Chief Complaint I am seeing this 29 y.o. female in consultation requested by Dr. Brian Mon MD for seizure. HPI The last seizure was about 3 days. She was sleeping and had seizure during sleep around midnight. She fell out of bed. I talked to her who reported that her both upper extremities tensed up alternating with relaxation. She had postictal confusion. No tongue biting or incontinence of bladder. Sometimes she felt tunnel vision and dizzy before seizure. She has been having dizziness all the time . She had first seizure around 2015. She did not have seizure until 12/2018. She had about 7 seizure seizure between 12/2018 to now. She declined seizure medicine. She had MRI of brain at [facility]. She has lupus. She does have anxiety and has been on Lexapro. Past Medical History: Diagnosis Date ??? Anemia ??? Anxiety ??? Asthma ??? Chronic diarrhea ??? Chronic kidney disease ??? Depression ??? Fibromyalgia ??? Fibromyalgia ??? Headache, tension-type ??? Hypertension ??? Lupus (CMS/HCC) ??? Migraine ??? PONV (postoperative nausea and vomiting) ??? 07/13/2015 ??? Rheumatoid arthritis (CMS/HCC) ??? Seizures (CMS/HCC) Allergies Allergen Reactions ??? Methylprednisolone Anaphylaxis and Syncope Syncope ??? Venlafaxine Itching Current Outpatient Medications Medication Sig Dispense Refill ??? acidophilus-pectin, citrus 100 million cell-10 mg capsule Take by mouth ??? albuterol (PROAIR RESPICLICK) 90 mcg/actuation inhaler Inhale 2 puffs every 6 (six) hours as needed for wheezing ??? ALPRAZolam (XANAX) 0.25 mg tablet Take 0.25 mg by mouth 3 (three) times a day as needed ??? escitalopram (LEXAPRO) 5 mg tablet Take 5 mg by mouth daily ??? hydroxychloroquine (PLAQUENIL) 200 mg tablet Take 100 mg by mouth nightly ??? multivitamin capsule Take 1 capsule by mouth daily ??? omeprazole (PriLOSEC) 20 mg capsule Take 20 mg by mouth daily ??? predniSONE (DELTASONE) 1 mg tablet Take 1 mg by mouth daily ??? predniSONE (DELTASONE) 10 mg tablet Take 12.5 mg by mouth daily ??? amoxicillin (amoxicillin) 500 mg tablet/capsule Take 500 mg by mouth 3 (three) times a day ??? belimumab (Benlysta) auto-injector Inject 1 mL (200 mg total) under the skin every 7 days (Patient not taking: Reported on 08/26/2019) 4 Syringe 3 ??? carBAMazepine (TEGretol) 100 mg chewable tablet Take one tablet by mouth twice a day for one week, then 2 tablets twice a day (Patient not taking: Reported on 09/01/2019) 120 tablet 3 ??? ergocalciferol (VITAMIN D) 50,000 unit capsule TAKE 1 CAPSULE BY MOUTH ONE TIME PER WEEK ??? fexofenadine (KERI) 60 mg tablet Take 1 tablet (60 mg total) by mouth 2 (two) times a day (Patient not taking: Reported on 08/26/2019) 20 tablet 0 ??? hydrOXYzine (ATARAX) 25 mg tablet Take 1 tablet (25 mg total) by mouth every 6 (six) hours 12 tablet 0 ??? ketorolac (TORADOL) 10 mg tablet Take 10 mg by mouth every 6 (six) hours as needed for pain ??? levETIRAcetam (KEPPRA) 500 mg tablet Take 1 tablet (500 mg total) by mouth 2 (two) times a day (Patient not taking: Reported on 08/26/2019) 50 tablet 0 ??? ondansetron (ZOFRAN) 4 mg tablet Take 4-8 mg by mouth every 8 (eight) hours as needed ??? traZODone (DESYREL) 150 mg tablet Take 150 mg by mouth nightly No current facility-administered medications for this visit. has a current medication list which includes the following prescription(s): acidophilus-pectin, citrus, albuterol, alprazolam, escitalopram, hydroxychloroquine, multivitamin, omeprazole, prednisone, prednisone, amoxicillin, benlysta, carbamazepine, ergocalciferol, fexofenadine, hydroxyzine, ketorolac, levetiracetam, ondansetron, and trazodone. Family History Problem Relation Age of Onset [...] quittin.6 ??? Smokeless tobacco: Never Used Substance and [...] file Gets together: Not on file Attends quaker service: Not on file Active member of [...] ??? Not on file Review of Systems Constitutional: No weight loss/gain, has Fatigue, excessive sweating, fever, chills HEENT: has headache/migraine, no hearing loss, has change in vision, no cataracts Respiratory: No trouble breathing, coughing/wheezing, asthma, snoring Muscle skeletal: No joint pain, muscle pain, back pain, neck pain, limb pain Cardiovascular: No chest pain, palpitations, irregular heart beat, passing out, fainting Vascular: NoTingling, numbness, swelling, discoloration of the extremities Gastrointestinal: No nausea, vomiting, diarrhea, abdominal pain Neurologic: No tremors, weakness, numbness, changes in gait, changes in memory Genitourinary: No painful urination, difficulty urination, frequent urination, urinary incontinence, discoloration of urine Reproductive: No hot flash, changes in libido, sexual transmitted disease Metabolic//Endocrine: No sensitivity to heat/cold, abnormal sleep pattern, skin change No hot flash. Psychiatric: No anxiety, depression, mood swings BP 110/77 Pulse 83 Ht 165.1 cm (5' 5 ) Wt 75.1 kg (165 lb 9.6 oz) LMP 08/25/2019 BMI 27.56 kg/m?? Physical Exam Constitutional: well-developed, well-nourished and in no acute stress. Head/Neck: atraumatic, no deformity or stiffness of neck Ears, Nose, Mouth and Throat: No ear tenderness, rhinorrhea, dry mouth or redness of throat. Eyes: Conjunctiva is clear. Sclera normal in color. Eyelid is normal Cardiovascular: S1, S2 are regular. No rubs or gallops Respiratory: clear bilaterally. No rales or wheezing. Adequate air entry Musculoskeletal: no atrophy, Tenderness or abnormal movement Extremities: no edema, cyanosis or deformities Skin: no rashes or lesions. No discoloration. Psychiatric: normal mood and affect. Judgment and insight appear intact Mental status: alert, speech fluent, comprehension intact, follow command appropriately Cranial nerve: EFRAIN, corneal reflex present. EOMI, VFF by confrontation method. Facial sensations symmetrical. Face symmetrical. shoulder shrug symmetrical b/l. tongue midline. Motor: bulk normal, tone normal, pronator drift negative. Strength 5/5. No abnormal movement. Coordination: FTN normal Reflexes: Biceps 2+ b/l, Triceps 2+ b/l, Knee reflex 2+ b/l, Achilles reflex 2+ b/l. plantar downward b/l. Sensation: LT Normal and symmetrical. Gait: Normal Assessment/Plan I am seeing this 29 y.o. female in consultation requested by Dr. Brian Mon MD for seizure. Diagnoses and all orders for this visit: Epilepsy undetermined as to focal or generalized (CMS/HCC) (Primary) - carBAMazepine (TEGretol) 100 mg chewable tablet; Take one tablet by mouth twice a day for one week, then 2 tablets twice a day (Patient not taking: Reported on 09/01/2019) - EEG Review of investigations: 1. 06/25/2019 CT of head without: No acute intracranial process. I reviewed image. 2. 08/25/2019 EKG: Sinus rhythm. HR 78. 3. 08/25/2019: Urine drug screen showed positive benzodiazepine. CMP normal. CBC unremarkable. Return in about 3 months (around 11/26/2019) for with [place]. documented in this encounter Plan of Treatment Not on file documented as of this encounter Visit Diagnoses Diagnosis 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)- Primary documented in this encounter Discontinued Medications Medication Sig Discontinue Reason Start Date End Da te escitalopram (LEXAPRO) 10 mg tablet Take 10 mg by mouth daily 07/11/2019 08/26/2019 documented as of this encounter Historical Medications * This list may reflect changes made after this encounter. acidophilus-pecti n, citrus 100 million cell-10 mg capsule Take by mouth 11/20/2019 multivitamin capsule Take 1 capsule by mouth daily 11/29/2020 escitalopram (LEXAPRO) 5 mg tablet Take 5 mg by mouth daily 11/20/2019 added in this encounter Additional Health Concerns Infection Onset Date Last Indicated Resolved Time COVID19 08/21/2019 08/21/2019 09/04/2019 3:05 AM CDT documented as of this encounter Care Teams Front End Developer Designer Relationship Specialty [place] [id number] [facility] [address] [place] [id number] PCP - General 07/04/19 [place] [id number] [address] [place] [id number] 11/16/18 documented as of this encounter
--- OUTSIDE RECORDS SUMMARY | 2024-02-24 20:14 | XMS_ITS | Encounter Summary ---
Author Organization [facility] Healthcare Address [address] [place] [address] Care Team Providers Care Switchboard Mechanic Name Role Phone Huseyin Dangelo MD Unavailable Brian Mon MD Primary Care Provider + Reason for Visit * Reason Comments Cough Headache Generalized Body Aches COVID-19 EVALUATION Encounter Details Date Type Department Care Team (Late st Contact Info) Description 08/21/2019 1:21 PM CDT - 08/21/2019 2:04 PM CDT Emergency [facility] Emergency Department [address] [place], [place] [id number] Discharge Disposition: Left without being seen Social [...] Reading Time Taken Comments Blood Pressure 131/92 08/21/2019 12:50 PM CDT Pulse 110 08/21/2019 12:50 PM CDT Temperature 37 ??C (98.6 ??F) 08/21/2019 12:50 PM CDT Respiratory Rate 20 08/21/2019 12:50 PM CDT Oxygen Saturation 100% 08/21/2019 12:50 PM CDT Inhaled Oxygen Concentration - - Weight 70.3 kg (155 lb) 08/21/2019 12:50 PM CDT Height 165.1 cm (5' 5 ) 08/21/2019 12:50 PM CDT Body Mass Index 25.79 08/21/2019 12:50 PM CDT documented in this encounter Discharge Diagnoses Diagnosis Cough - COUGH Headache - HEADACHE Myalgia, unspecified site - MYALGIA, UNSPECIFIED SITE Procedure and treatment not carried out due to patient leaving prior to being seen by health care provider - PROCEDURE AND TREATMENT NOT CARRIED OUT DUE TO PATIENT LEAVING PRIOR TO BEING SEEN BY HEALTH CARE [place] Other manager long term care (current) drug therapy - OTHER [facility] (CURRENT) DRUG THERAPY [facility] (current) use of systemic steroids - HEATING REPAIR TECHNICIAN (CURRENT) USE OF SYSTEMIC STEROIDS Allergy status to other drugs, medicaments and biological substances status - ALLERGY STATUS TO OTHER DRUGS, MEDICAMENTS AND BIOLOGICAL SUBSTANCES STATUS documented in this encounter Medications at Time [...] nightly 11/20/2019 documented as of this encounter Discharge Disposition Disposition Code Departure Means Destination Left without being seen documented in this encounter Plan of Treatment Not on file documented as of this encounter Visit Diagnoses Not on filedocumented in this encounter Additional Health Concerns Infection Onset Date Last Indicated Resolved Time COVID19 08/21/2019 08/21/2019 09/04/2019 3:05 AM CDT documented as of this encounter Care Teams Switchboard Mechanic Relationship Specialty [place] [id number] [address] [id number] PCP - General 07/04/19 [place] [id number] [address] [address] 11/16/18 documented as of this encounter
--- OUTSIDE RECORDS SUMMARY | 2024-02-24 20:14 | XMS_ITS | Encounter Summary ---
Author Organization [facility] Healthcare Address [address] [place] [address] Care Team Providers Care Aeronautical Engineering Technologist Name Role Phone Huseyin Dangelo MD Unavailable [phone] Brian Mon MD Primary Care Provider + Reason for Visit * Reason Comments COVID-19 EVALUATION Cough Generalized Body Aches Encounter Details Date Type Department Care Team (Late st Contact Info) Description 09/11/2019 5:51 PM CDT - 09/11/2019 9:14 PM CDT Emergency [facility] [address] [place] [id number] Body aches (Primary Dx); Chest wall pain; Shortness of breath Discharge Disposition: Left Against Medical Advice Social [...] Sign Reading Time Taken Comments Blood Pressure 126/98 09/11/2019 8:30 PM CDT Pulse 85 09/11/2019 8:45 PM CDT Temperature 36.7 ??C (98.1 ??F) 09/11/2019 5:40 PM CD T Respiratory Rate 16 09/11/2019 5:40 PM CDT Oxygen Saturation 98% 09/11/2019 8:45 PM CDT Inhaled Oxygen Concentration - - Weight - - Height - - Body Mass Index - - documented in this encounter Discharge Diagnoses Diagnosis Pain, unspecified - PAIN, UNSPECIFIED Procedure and treatment not carried out due to patient leaving prior to being seen by health care provider - PROCEDURE AND TREATMENT NOT CARRIED OUT DUE TO PATIENT LEAVING PRIOR TO BEING SEEN BY HEALTH CARE [facility] Shortness of breath - SHORTNESS OF BREATH Contact with and (suspected) exposure to other viral communicable diseases - CONTACT WITH AND (SUSPECTED) EXPOSURE TO OTHER VIRAL COMMUNICABLE DISEASES Other penitentiary (current) drug therapy - OTHER [facility] (CURRENT) DRUG THERAPY documented in this encounter Medications at Time [...] a day 120 tablet 3 08/26/2019 0 ergocalciferol (VITAMIN D) 50,000 unit capsule TAKE 1 CAPSULE BY MOUTH ONE TIME PER WEEK 06/21/2019 1 escitalopram (LEXAPRO) 5 mg tablet Take 5 mg by mouth daily 0 fexofenadine (KERI) 60 mg tablet Take 1 tablet (60 mg total) by mouth 2 (two) times a day 20 tablet 08/20/2019 0 hydroxychloroquine (PLAQUENIL) 200 mg tablet Take [...] 2 (two) times a day 50 tablet 08/25/2019 0 multivitamin capsule Take 1 capsule by [...] documented in this encounter ED Notes * Krista Anthony PA - 09/11/2019 9:14 PM CDT HPI Chief Complaint Patient presents with ??? COVID-19 EVALUATION ??? Cough ??? Generalized Body Aches Carito Rausch is a 29 y.o. female with PMHx of Lupus, rheumatoid arthritis, anxiety, migraines who presents to the Emergency Department for evaluation of myalgias and cough. Patient endorses 1 wk of myalgias and cough mildly productive of clear sputum. She endorses +COVID contacts at work. Additionally, she reports chest wall pain to her lower chest wall x2 months. Pain is dull ache, mild, tender to touch. She has not had recorded fever but takes steroids daily and is concerned a fever mightbe masked. Denies SOB, sore throat, rash, abdominal pain, NVD or any other acute sx or complaints at this time. Patient History Patient Active [...] Systems Review of Systems Constitutional: Positive for chills. HENT: Negative. Respiratory: Positive for cough. Cardiovascular: Negative. Gastrointestinal: Negative. Genitourinary: Negative. Musculoskeletal: Positive for arthralgias (chest wall) and myalgias. Skin: Negative. Neurological: Negative. All other systems reviewed and are negative. Physical Exam ED Triage Vitals [09/11/19 1740] Temp Pulse Resp BP SpO2 36.7 ??C (98.1 ??F) 90 16 134/81 100 % Temp src Heart Rate Source Patient Position BP Location FiO2 (%) Oral -- -- -- -- Physical Exam Vitals signs and nursing note reviewed. Constitutional: General: She is not in acute distress. Appearance: Normal appearance. She is not diaphoretic. HENT: Head: Normocephalic and atraumatic. Mouth/Throat: Mouth: Mucous membranes are moist. Eyes: Extraocular Movements: Extraocular movements intact. Conjunctiva/sclera: Conjunctivae normal. Neck: Musculoskeletal: Normal range of motion and neck supple. Cardiovascular: Rate and Rhythm: Normal rate and regular rhythm. Heart sounds: Normal heart sounds. Pulmonary: Effort: Pulmonary effort is normal. No respiratory distress. Breath sounds: Normal breath sounds. Chest: Chest wall: Tenderness (mild ttp of lower anterior chest wall b/l) present. Abdominal: General: There is no distension. Palpations: Abdomen is soft. Tenderness: There is no abdominal tenderness. Musculoskeletal: Normal range of motion. General: No deformity. Skin: General: Skin is warm and dry. Findings: No rash. Neurological: Mental Status: She is alert and oriented to person, place, and time. Psychiatric: Mood and Affect: Mood normal. Behavior: Behavior normal. MDM Medical Decision Making Differential Diagnosis or Management Options: 29 yo F pmhx lupus, migraines, RA presenting with myalgias, cough, +COVID contacts, and 2 mos of chest wall pain. Suspect viral URI vs bronchitis vs costochondritis vs rheumatoid arthritis flare vs COVID vs anxiety. Plan for labs, including esr, crp, troponin x1, COVID swab, CXR. Anticipate dc w/ rheumatology f/u ED Course as of Sep 30 524 Time: 09/10 2054 Comment: Patient wishing to leave and see her stereotype caster outpatient By: TSERING Fatima Final diagnoses: Body aches Chest wall pain Shortness of breath TSERING Fatima 10/01/19 0525 * Ian Hwang RN - 09/11/2019 5:51 PM CDT Bed: ED3-04 Expected date: Expected time: Means of arrival: Car Comments: Ian Hwang RN 09/11/191750 * Teresa Briseno RN - 09/11/2019 5:37 PM CDT Pt presents to ED c/o body aches in back, chest, and arms. Also reports cough that stated a few days ago. Reports coming in contact with people that tested positive for COVID at work. They were not wearing masks. documented in this encounter Miscellaneous Notes * Result Encounter Note - Rocky Cifuentes MD - 09/11/2019 9:14 PM CDT Negative result; will notify patient. * ED Procedure Note - Dilan Martinez MD - 09/11/2019 7:58 PM CDTAssociated Order(s): ECG 12 lead Procedure ECG 12 lead Date/Time: 09/11/2019 7:58 PM Performed by: Dilan Martinez MD Authorized by: TSERING Fatima Rate: ECG rate: 79 ECG rate assessment: normal Rhythm: Rhythm: sinus rhythm Ectopy: Ectopy: none QRS: QRS axis: Normal QRS intervals: Normal Conduction: Conduction: normal ST segments: ST segments: Normal T waves: T waves: normal Previous ECG: Previous ECG: Compared to current Date of previous EC09/23/2018 Similarity: No change Interpretation: Interpretation: normal Recommended Follow-up: Recommended follow up: further workup in the ED Dilan Martinez MD 09/11/191958 documented in this encounter Plan of Treatment Not on file documented as of this encounter Procedures Procedure Name Priority Date/Time Associated Diagnosis Comments URINALYSIS AND REFLEX TO MICROSCOPIC AND CULTURE STAT 09/11/2019 8:29 PM CDT URINALYSIS, MICROSCOPIC ONLY STAT 09/11/2019 8:29 PM CDT POCT HCG, URINE Routine 09/11/2019 8:25 PM CDT ECG 12-LEAD STAT 09/11/2019 7:58 PM CDT COVID-19 CORONAVIRUS RNA STAT 09/11/2019 7:46 PM CDT XR CHEST 1 VIEW ED 09/11/2019 7:17 PM CDT POCT RAPID HIV ANTIBODY COMMUNITY SCREENING-ASCENCION ELIGIBLE Routine 09/11/2019 7:09 PM CDT DIFFERENTIAL AUTO STAT 09/11/2019 7:0 4 PM CDT CBC WITH AUTO DIFFERENTIAL STAT 09/11/2019 7:04 PM CDT TROPONIN I STAT 09/11/2019 7:04 PM CDT ERYTHROCYTE SEDIMENTATION RATE STAT 09/11/2019 7:04 PM CDT CRP (ACUTE PHASE) STAT 09/11/2019 7:0 4 PM CDT BASIC METABOLIC PANEL STAT 09/11/2019 7:04 PM CDT documented in this encounter Results * (ABNORMAL) Urinalysis, microscopic only (09/11/2019 8:29 PM CDT) WBC, ur 0-5 0 - 5 /HPF [facility] RBC, ur 0-2 0 - 2 /HPF [facility] Epithelial cells, squamous, ur 1-5 0 - 5 /HPF [facility] Mucous, ur Present(A) [facility] Culture Reflex Comment Reflex conditions for urine culture (WBC >10) not met. [facility] Urine 09/11/2019 8:29 PM CDT 09/11/2019 8:39 PM CDT Krista CAGLE LAB URINE ORDERABLES Fi nal Result [facility] Department [place] [address] * (ABNORMAL) Urinalysis reflex to microscopic and culture Urine (09/11/2019 8:29 PM CDT) Color, ur Yellow Yellow [facility] Clarity, ur Clear Clear [facility] Specific gravity, ur 1.025 1.010 - 1.025 [facility] pH, urine 7 [facility] Protein, ur ql 2+(A) Negative [facility] Glucose, ur ql Negative Negative [facility] Ketones, ur Negative Negative [facility] Bilirubin, ur Negative Negative [facility] Blood, ur Negative Negative [facility] Comment:Ascorbic acid identi fied in urine; possible false negative blood result. A microscopic exam will be added to identify RBCs. Urobilinogen, ur <2.0 <2.0 mg/dL [facility] Nitrite, ur Negative Negative [facility] Leukocyte esterase, ur Negative Negative [facility] UA reflex comment Reflex to microscopic UA will be performed. [facility] Urine 09/11/2019 8:29 PM CDT 09/11/2019 8:39 PM CDT Narrative [facility] - 09/11/2019 8:46 PM CDT THE COLLECTION LOCATION IS [place] [address] Urine pH is affected by diet, medications, systemic acid-base disturbances, and renal tubular function. ??pH may affect urinary stone formation. ??For example, urine pH below 6.0 may help reduce the tendency for calcium phosphate stones and pH greater than 6.0 may reduce the tendency for uric acid stone formation. Source: [facility] [employer]. Last revised 03-08-2017 us Krista CAGLE LAB MICROBIOLOGY - GENE RAL ORDERABLES Final Result [facility] Department [place] [address] * POCT hCG, urine (09/11/2019 8:25 PM CDT) HCG, ur, POC Negative Lot Number [id number] QC Backgroud Clear Acceptable QC Control Line Acceptable Urine 09/11/2019 8:25 PM CDT us Krista CAGLE POINT OF CARE TEST ORDE RABLES Final Result * ECG 12-LEAD (09/11/2019 7:58 PM CDT) Narrative [facility] - 09/11/2019 7:58 PM CDT Dilan Martinez MD ? 09/11/2019 ??7:59 PM ECG 12 lead Date/Time: 09/11/2019 7:58 PM Performed by: Dilan Martinez MD Authorized by: TSERING Fatima Rate: ??ECG rate: ??79 ??ECG rate assessment: normal ?? Rhythm: ??Rhythm: sinus rhythm ?? Ectopy: ??Ectopy: none ?? QRS: ??QRS axis: ??Normal ??QRS intervals: ??Normal Conduction: ??Conduction: normal ?? ST segments: ??ST segments: ??Normal T waves: ??T waves: normal ?? Previous ECG: ??Previous ECG: ??Compared to current ??Date of previous ECG: ??09/23/2018 ??Similarity: ??No change Interpretation: ??Interpretation: normal ?? Recommended Follow-up: ??Recommended follow up: further workup in the ED ?? Procedure Note Dilan Martinez MD - 09/11/2019 7:58 PM CDT Procedure ECG 12 lead Date/Time: 09/11/2019 7:58 PM Performed by: Dilan Martinez MD Authorized by: TSERING Fatima Rate: ECG rate: 79 ECG rate assessment: normal Rhythm: Rhythm: sinus rhythm Ectopy: Ectopy: none QRS: QRS axis: Normal QRS intervals: Normal Conduction: Conduction: normal ST segments: ST segments: Normal T waves: T waves: normal Previous ECG: Previous ECG: Compared to current Date of previous EC09/23/2018 Similarity: No change Interpretation: Interpretation: normal Recommended Follow-up: Recommended follow up: further workup in the ED Dilan Martinez MD 09/11/191958 Krista CAGLE ECG ORDERABLES Final R esult [facility] * COVID-19 Coronavirus RNA Nasopharyngeal (09/11/2019 7:46 PM CDT) COVID-19 RNA Not Detected [facility] Comment: Interpretive Data Testing performed at [facility]. The 2019-Novel Coronavirus Assay (COVID-19) Real Time RT-PCR assay is for in vitro diagnostic use under FDA emergency use authorization only. A negative RT-PCR result does not preclude infection with COVID-19 and should not be used as the sole basis for treatment or other patient management decisions. Additional sample types have been validated according to CLIA regulations. ?? Current Interpretive Data was last revised on 2019. Nasopharyngeal 09/11/2019 7: 46 PM CDT 09/11/2019 9:26 PM CDT Jovana [facility] - 09/12/2019 4:05 AM CDT Is the patient experiencing any symptoms consistent with COVID (eg. Fever, cough, shortness of breath)?->No What is the reason for testing?->Known exposure to confirmed or suspected COVID- 19 case THE [facility] COLLECTION LOCATION IS [facility] ED3-04 us Krista CAGLE LAB MICROBIOLOGY - GENE RAL ORDERABLES Final Result [facility] Department [place] [address] * XR Chest 1 Vw portable (09/11/2019 7:17 PM CDT) Anatomical Region Laterality Modality Body, Chest N/A Computed Radiogr aphy 09/11/2019 8:00 PM CDT Impressions 09/11/2019 9:44 PM CDT Comparison to prior dated 08/19/2019. Lungs are clear. ??No focal consolidation, pleural effusion, pneumothorax, or pulmonary edema. ??Cardiomediastinal silhouette is normal. Dictated by: Dilan Meza M.D. The radiology attending physician has personally reviewed this study, and had reviewed and/or edited this written report and agrees with it. Electronically signed by: Andrey Prather M.D. Narrative 09/11/2019 9:44 PM CDT EXAMINATION: 1 view chest radiograph Procedure Note Andrey Prather MD - 09/11/2019 EXAMINATION: 1 view chest radiograph IMPRESSION: Comparison to prior dated 08/19/2019. Lungs are clear. No focal consolidation, pleural effusion, pneumothorax, or pulmonary edema. Cardiomediastinal silhouette is normal. Dictated by: Dilan Meza M.D. The radiology attending physician has personally reviewed this study, and had reviewed and/or edited this written report and agrees with it. Electronically signed by: Andrey Prather M.D. us Krista CAGLE IMG XR PROCEDURES Final Result * POCT rapid HIV (09/11/2019 7:09 PM CDT) [facility] Rapid HIV, POC Negative Negative Lot Number [id number] QC Control Line Acceptable Blood specimen (specimen) 09/11/2019 7:09 PM CDT us Dilan Martinez MD POINT OF CARE TEST ORDERAB LES Final Result * Erythrocyte sedimentation rate (09/11/2019 7:04 PM CDT) [facility] Erythrocyte sedimentation rate 19 1 - 20 mm/hr [facility] Blood specimen (specimen) 09/11/2019 7:04 PM CDT 09/11/2019 7:23 PM CDT us Notinfile Unknown LAB BLOOD ORDERABLES Final Res ult [facility] Department [place] [address] * CRP (acute phase) (09/11/2019 7:04 PM CDT) [facility] CRP 6.6 <=10.0 mg/L [facility] Blood specimen (specimen) 09/11/2019 7:04 PM CDT 09/11/2019 7:19 PM CDT Notinfile Unknown LAB BLOOD ORDERABLES Final Res ult Performing Organization Address City/[facility] Co de Phone Number [facility] [place] [address] * (ABNORMAL) Differential, auto (09/11/2019 7:04 PM CDT) [facility] Neutrophil abs 7.7(H) 1.7 - 6.5 K/cumm [facility] Imm gran abs 0.0 0.0 - 0.1 K/cumm [facility] Lymphocyte abs 1.2 0.8 - 3.3 K/cumm [facility] Monocyte abs 0.6 0.2 - 0.8 K/cumm [facility] Eosinophil abs 0.1 0.0 - 0.5 K/cumm [facility] Basophil abs 0.0 0.0 - 0.1 K/cumm [facility] Neutrophil pct 80.0 % [facility] Comment: Interpretive Data Percent cell count reference ranges are not reported, since discordance with absolute values may lead to misinterpretation of CBC data. Current Interpretive Data was last revised on 2017. Imm gran pct 0.4 % [facility] Comment: Interpretive Data Percent cell count reference ranges are not reported, since discordance with absolute values may lead to misinterpretation of CBC data. Current Interpretive Data was last revised on 2017. Lymphocyte pct 12.8 % [facility] Comment: Interpretive Data Percent cell count reference ranges are not reported, since discordance with absolute values may lead to misinterpretation of CBC data. Current Interpretive Data was last revised on 2017. Monocyte pct 5.9 % [facility] Comment: Interpretive Data Percent cell count reference ranges are not reported, since discordance with absolute values may lead to misinterpretation of CBC data. Current Interpretive Data was last revised on 2017. Eosinophil pct 0.6 % [facility] Comment: Interpretive Data Percent cell count reference ranges are not reported, since discordance with absolute values may lead to misinterpretation of CBC data. Current Interpretive Data was last revised on 2017. Basophil pct 0.3 % [facility] Comment: Interpretive Data Percent cell count reference ranges are not reported, since discordance with absolute values may lead to misinterpretation of CBC data. Current Interpretive Data was last revised on 2017. Blood specimen (specimen) 09/11/2019 7:04 PM CDT 09/11/2019 7:14 PM CDT Krista CAGLE LAB BLOOD ORDERABLES nal Result [facility] Department [place] [address] * Troponin I (09/11/2019 7:04 PM CDT) Troponin I <0.03 0.00 - 0.03 ng/mL [facility] Comment: Interpretive Data: Normal plasma Troponin I concentrations can reach 1 ng/mL in the first two weeks of life and slowly decrease to adult levels (<0.03 ng/mL) by the age of 3 months. > 3 months ??<0.03 ng/mL > or = 18 years Serial determinations are recommended for the diagnosis of myocardial infarction. ??Temporal rise and fall are consistent with myocardial infarction when at least one value is above the 99th percentile upper reference limit for Troponin assay. References: 1. Clin Chem 2013;[id number]:[id number] 2. Journal of the [place] [employer] 2012;60:1581-98 Current Interpretive Data Last Revised Date: 2017. Blood specimen (specimen) 09/11/2019 7:04 PM CDT 09/11/2019 7:14 PM CDT Narrative [facility] - 09/11/2019 7:51 PM CDT THE [facility] COLLECTION LOCATION IS [facility] ED3-04 Krista CAGLE LAB BLOOD ORDERABLES Fi nal Result [facility] Department [place] [address] * (ABNORMAL) CBC with auto differential (09/11/2019 7:04 PM CDT) WBC 9.6 3.8 - 9.9 K/cumm [facility] Hgb 11.0(L) 11.9 - 15.5 g/dL [facility] Hct 35.1(L) 35.6 - 45.5 % [facility] Plt 338 150 - 400 K/cumm [facility] MPV 9.8 9.1 - 12.3 fL [facility] RBC 3.97 3.90 - 5.20 M/cumm [facility] MCV 88.4 81.3 - 96.4 fL [facility] MCH 27.7 27.1 - 33.3 pg [facility] MCHC 31.3(L) 32.3 - 35.7 g/dL [facility] RDW CV 14.3 11.1 - 14.9 % [facility] RDW SD 45.6 35.7 - 48.1 fL [facility] NRBC abs 0.00 0.00 - 0.01 K/cumm [facility] Blood specimen (specimen) (Blood, Venous) 09/11/2019 7:04 PM CDT 09/11/2019 7:14 PM CDT Narrative [facility] - 09/11/2019 7:25 PM CDT THE [facility] COLLECTION LOCATION IS [facility] ED3-04 Krista CAGLE LAB BLOOD ORDERABLES Fi nal Result [facility] Department [place] [address] * Basic metabolic panel (09/11/2019 7:04 PM CDT) Pathologist [facility] Sodium 138 135 - 145 mmol/L [facility] Potassium, pl 4.1 3.3 - 4.9 mmol/L [facility] Comment:Hemolyzed; Potassium value may be falsely elevated by as much as 0.3-0.5 mmol/L. Suggest redraw and reanalysis. Chloride 104 97 - 110 mmol/L [facility] CO2 26 22 - 32 mmol/L [facility] Anion gap 8 2 - 15 mmol/L [facility] BUN 12 8 - 25 mg/dL [facility] Creatinine 0.65 0.60 - 1.10 mg/dL [facility] Glucose 90 70 - 199 mg/dL [facility] Comment: Interpretive Data Fasting glucose [...] 2017. Calcium 9.4 8.5 - 10.3 mg/dL [facility] Blood specimen (specimen) 09/11/2019 7:04 PM CDT 09/11/2019 7:14 PM CDT Narrative [facility] - 09/11/2019 7:44 PM CDT THE [facility] COLLECTION LOCATION IS [facility] ED3-04 us Krista CAGLE LAB BLOOD ORDERABLES Fi nal Result [facility] Department [place] [address] documented in this encounter Visit Diagnoses Diagnosis Body aches- Primary Generalized pain Chest wall pain Painful respiration Shortness of breath documented in this encounter Orders Lab Orders Without Results Count Last Ordered D ate First Ordered Date CRP (ACUTE PHASE) 1 09/11/2019 ERYTHROCYTE SEDIMENTATION RATE 1 09/11/2019 Nursing Count Last Ordered Date First Orde red Date NURSING COMMUNICATION 2 09/11/2019 IV Count Last Ordered Date First Orde red Date SALINE LOCK IV 1 09/11/2019 documented in this encounter Additional Health Concerns Infection Onset Date Last Indicated Resolved Time Exposure, COVID-19 Comment:Added automatically based on COVID19 lab answers indicating exposure risk 09/11/2019 09/11/2019 09/26/2019 3:05 AM C DT documented as of this encounter Care Teams Aeronautical Engineering Technologist Relationship Specialty [place] [address] [address] [address] PCP - General 07/04/19 [place] [address] [address] [facility] [address] [place] [address] 11/16/18 documented as of this encounter
--- OUTSIDE RECORDS SUMMARY | 2024-02-24 20:14 | XMS_ITS | Encounter Summary ---
Author Organization [facility] Address [address] [place] [address] Phone Care Team Providers Care Computer Builder Name Role Phone Huseyin Dangelo MD Unavailable [phone] Brian Mon MD Primary Care Provider + Reason for Referral * Diagnostic Imaging (Emergency) - Closed Specialty Diagnoses / Procedures Referred By Contac t Referred To Contact Radiology Diagnoses Lupus cerebritis (HCC) Procedures MRI Brain W WO Contrast Carolina Delarosa MD [address] [place] [address] Phone: tel: fax: [address] [address] Referral ID Status Reason Start Date Expiration Date Visits Re quested Visits Authorized [id number] Closed 09/19/2019 11/03/2019 1 1 Encounter Details Date Type Department Care Team (Late st Contact Info) Description 09/18/2019 Orders Only [facility] Rheumatology [address] [facility] Medical [facility] Building [address] [place] [address] Nallely Griffiths CMA Lupus cerebritis (CMS/HCC) (Primary Dx); Seizures (CMS/HCC) Social History Tobacco Use Types Packs/Day [...] documented as of this encounter Results * MRI Brain W WO Contrast (09/24/2019 8:07 AM CDT) Anatomical Region Laterality Modality Head and Neck N/A Magnetic Resonan ce 09/24/2019 10:1 9 AM CDT Impressions 09/24/2019 10:39 AM CDT No findings to explain the patient's seizures. Dictated by: Gabriele Barajas M.D. The radiology attending physician has personally reviewed this study, and had reviewed and/or edited this written report and agrees with it. Electronically signed by: Gertrude Child M.D. Narrative 09/24/2019 10:39 AM CDT EXAMINATION: Magnetic resonance imaging (MRI) of the [...] in the carotid arteries and basilar artery. Procedure Note Gertrude Child MD - 09/24/2019 EXAMINATION: Magnetic resonance imaging (MRI) of the [...] No findings to explain the patient's seizures. Dictated by: Gabriele Barajas M.D. The radiology attending physician has personally reviewed this study, and had reviewed and/or edited this written report and agrees with it. Electronically signed by: Gertrude Child M.D. [facility] Mabel Delarosa MD IM MRI PROCEDURES Final R esult documented in this encounter Visit Diagnoses Diagnosis Lupus cerebritis (HCC)- Primary Seizures (HCC) Other convulsions Lupus cerebritis (HCC) documented in this encounter Additional Health Concerns Infection Onset Date Last Indicated Resolved Time Exposure, COVID-19 Comment:Added automatically based on COVID19 lab answers indicating exposure risk 09/11/2019 09/11/2019 09/26/2019 3:05 AM C DT documented as of this encounter Care Teams Computer Builder Relationship Specialty [place] [address] [address] PCP - General 07/04/19 [place] [address] [address] [facility] [address], [place] [address] 11/16/18 documented as of this encounter
--- OUTSIDE RECORDS SUMMARY | 2024-02-24 20:14 | XMS_ITS | Encounter Summary ---
Author Organization [facility] [employer] [facility] Address [address] [place] [address] Phone Care Team Providers Care Poacher Wringer Operator Name Role Phone Huseyni Dangelo MD Unavailable [phone] Brian Mon MD Primary Care Provider + Encounter Details Date Type Department Care Team (Late st Contact Info) Description 08/23/2019 Telephone [facility] Rheumatology [address] [facility] 5th [place] [address] [place] [address] Griffin Burr MD [address] [facility] [address] [place] [address] Social History Tobacco Use Types [...] Telephone Encounter - Nallely Griffiths CMA - 08/26/2019 9:25 AM CDT Called this morning. Pt picked up and call dropped. Called back X2 and left 1 VM to call back for Sunday appt in office at on 08/31 1pm. * Telephone Encounter - Carolina Delarosa MD - 08/25/2019 6:26 PM CDT She already called the fellow again today at 4.40 pm * Telephone Encounter - Nallely Griffiths CMA - 08/25/2019 5:02 PM CDT Left pt message to call back for appt. I will try to reach her again * Telephone Encounter - Carolina Delarosa MD - 08/25/2019 2:13 PM CDT Is she coming for office visit ? * Telephone Encounter - Griffin Burr MD - 08/23/2019 12:39 PM CDT Had another witnessed seizure. Pt states she was sleeping and she fell out of bed because of the seizure. states her whole body shaking . Arms are flexed up by her face the whole time. Legs are generally shaky. Eyes are closed. Pt does not remember the seizure. She states she feels completely out of it and did not even remember her husbands name. Seizure Lasted for about 5 min. Still feels groggy and out of it . I informed pt that this could be serious/life threatening and she should go to the ER. She stated she is hesitant to do this as she does not have health insurance. I reiterated that this could be life threatening so she should go to an ER. She stated she would consider it now and would definitely go if she had another seizure. A/P: Pt needs expedited workup for recurrent seizures. Recommended pt go to ER for urgent neurologic evaluation. documented in this encounter Plan of Treatment Not on file documented as of this encounter Visit Diagnoses Not on filedocumented in this encounter Additional Health Concerns Infection Onset Date Last Indicated Resolved Time COVID19 08/21/2019 08/21/2019 09/04/2019 3:05 AM CDT documented as of this encounter Care Teams Poacher Wringer Operator Relationship Specialty [place] [address] [address] [address] PCP - General 07/04/19 [place] [address] [address] [place] [address] 11/16/18 documented as of this encounter
--- OUTSIDE RECORDS SUMMARY | 2024-02-24 20:14 | XMS_ITS | Encounter Summary ---
Author Organization [facility] Address [address] [facility] [address] [place] [address] Care Team Providers Care Intelligence Operations Specialist Name Role Phone Huseyin Dangelo MD Unavailable [phone] Brian Mon MD Primary Care Provider + Reason for Visit * Reason Onset Date Comments MRI Auth 09/24/2019 Encounter Details Date Type Department Care Team (Late st Contact Info) Description 09/24/2019 Telephone [facility] Hand Surgery [address] [facility] [address] [place] [address] Chino Zaldivar MD [address] [place] [address] [phone] MRI Auth Social History Tobacco Use Types Packs/Day Years [...] encounter Miscellaneous Notes * Telephone Encounter - Kyra Zuñiga MA - 09/26/2019 1:01 PM CDT Working with [facility] on this. * Telephone Encounter - AlonsoAida ryan - 09/24/2019 9:28 AM CDT TLB her MRI needed an auth from [facility] and this per stated that they usually do not back date. She gave me a number of [phone] documented in this encounter Plan of Treatment [...] documented as of this encounter Care Teams Intelligence Operations Specialist Relationship Specialty [place] [address] [address] PCP - General 07/04/19 [place] [address] [address] [address] 11/16/18 documented as of this encounter
--- OUTSIDE RECORDS SUMMARY | 2024-02-24 20:14 | XMS_ITS | Encounter Summary ---
Author Organization [facility] Address [address] [place] [address] Phone Care Team Providers Care Mica Builder Name Role Phone Huseyin Dangelo MD Unavailable [phone] Brian Mon MD Primary Care Provider + Encounter Details Date Type Department Care Team (Late st Contact Info) Description 07/23/2019 Telephone [facility] Rheumatology [address] [facility] 5th [place] [address] [place] [address] Griffin Brur MD [address] [facility] [address] [place] [address] Social History Tobacco Use Types [...] Miscellaneous Notes * Telephone Encounter - Nallely Griffiths, [facility] - 07/25/2019 8:04 AM CDT Sent patient a [employer] message. She has a scope at 12:30pm same day and has to be there an hour early for prep. I put her on at 9am but, stated the call will be between 9-11am. * Telephone Encounter - Carolina Delarosa MD - 07/24/2019 2:44 PM CDT Put her on the call schedule for next Friday 07/28. Let her know it will be a phone call not a video * Telephone Encounter - Griffin Burr MD - 07/23/2019 7:49 PM CDT Pt called stating she is still having diffuse joint pain and swelling. Prior increases of prednisone have only made her feel worse. States that diclofenac gel/toradol have been helping. States this does feel like prior lupus flares. She states that she would like a call from her primary special education secretary regarding her refractory flares and starting benlysta. She is worried about affording the medication as she does not have insurance. A/P: Unclear if related to SLE vs. Fibro. Instructed pt she could increase prednisone back to 40 mg for a few days but she stated she would prefer to avoid that right now given previous side effects. Willincrease diclofenac gel to QID from BID. Will route this to her primary special education secretary. documented in this encounter Plan of Treatment Not on file documented as of this encounter Visit Diagnoses Not on filedocumented in this encounter Care Teams Mica Builder Relationship Specialty [place] [address] [address] [place] [id number] PCP - General 07/04/19 [place] [address] [address] [place] [address] 11/16/18 documented as of this encounter
--- OUTSIDE RECORDS SUMMARY | 2024-02-24 20:14 | XMS_ITS | Encounter Summary ---
Author Organization [facility] Healthcare Address [address] [place] [address] Care Team Providers Care Housecalls Nurse Name Role Phone Huseyin Dangelo MD Unavailable Brian Mon MD Primary Care Provider + Reason for Referral * Neurology (Routine) - Closed Specialty Diagnoses / Procedures Referred By Contac t Referred To Contact Diagnoses Lupus Procedures [place] [address] [place], [place] [address] [id number] Phone: tel: fax: Referral ID Status Reason Start Date Expiration Date Visits Re quested Visits Authorized [id number] Closed 08/25/2019 03/05/2021 1 1 * Neurology (Routine) - Closed Specialty Diagnoses / Procedures Referred By Jud freeman Referred To Contact Diagnoses Seizure (HCC) Lupus Procedures [place] [address] [place], [place] [address] [address] Phone: tel: fax: Referral ID Status Reason Start Date Expiration Date Visits Re quested Visits Authorized [id number] Closed 08/25/2019 03/05/2021 1 1 Reason for Visit * Reason Comments Seizures Encounter Details Date Type Department Care Team (Late st Contact Info) Description 08/25/2019 7:08 AM CDT - 08/25/2019 10:59 AM CDT Emergency [facility] Emergency Department [address] [place] [address] Jorge Arriaga MD [address] [facility] [address] [place] [address] [place] [id number] [address] Seizure (CMS/HCC) (Primary Dx); Lupus (CMS/HCC) Discharge Disposition: Left Against Medical Advice Social [...] Sign Reading Time Taken Comments Blood Pressure 94/67 08/25/2019 8:30 AM CDT Pulse 84 08/25/2019 8:35 AM CDT Temperature 36.6 ??C (97.8 ??F) 08/25/2019 7:13 AM CD T Respiratory Rate 18 08/25/2019 7:13 AM CDT Oxygen Saturation 100% 08/25/2019 8:35 AM CDT Inhaled Oxygen Concentration - - Weight - - Height - - Body Mass Index - - documented in this encounter Discharge Diagnoses Diagnosis Unspecified convulsions (HCC) - UNSPECIFIED CONVULSIONS Systemic lupus erythematosus, unspecified (HCC) - SYSTEMIC LUPUS ERYTHEMATOSUS, UNSPECIFIED Procedure and treatment not carried out because of patient's decision for unspecified reasons - PROCEDURE AND TREATMENT NOT CARRIED OUT BECAUSE OF PATIENT'S DECISION FOR UNSPECIFIED REASONS documented in this encounter Discharge Instructions * Attachments The following attachments cannot be sent through Care Everywhere. * Seizure, New Onset, Unknown Cause (Adult) (Uzbek) documented in this encounter Medications at Time [...] (six) hours as needed for pain 11/20/2019 levETIRAcetam (KEPPRA) 500 mg tablet Take 1 tablet (500 mg total) by mouth 2 (two) times a day 50 tablet 08/25/2019 09/19/2019 omeprazole (PriLOSEC) 20 mg capsule Take 20 [...] (two) times a day 50 tablet 08/25/2019 09/19/2019 documented in this encounter Discharge Disposition Disposition Code Departure Means Destination Left Against Medical Advice documented in this encounter ED Notes * Jorge Arriaga MD - 08/25/2019 7:59 AM CDT HPI Chief Complaint Patient presents with ??? Seizures HPI [7:27 AM 08/25/2019]: 29 y/o Carito Rausch, with a PMHx of lupus, fibromyalgia, anemia, depression,chronic kidney disease, rheumatoid arthritis, HTN, asthma, and seizures, presenting to the ED for the evaluation of a seizure episode onset 2 days ago. Pt reports speaking with Dr. Griffin Burr, andhe advised her to present to the ED to have an EEG done. She states, I feel out of it and not myself. She denies SOB, chest pain, abdominal pain, N/V/D, fevers, or chills. She is currently taking Cephalexin for a UTI and Prednisone for Lupus. No recent ill contacts or travel. No significant change in activity. No further complaints. Per chart review, on 08/23/19, she had a phone consult with Dr. Griffin Burr and he noted, she was sleeping and fell out of bed due to a seizure. Her reports shaking to the entire body, arms were flexed by her face, eyes were closed, and it lasted for a duration of about 5 minutes. She doesnot recall the seizure. Dr. Burr informed her this could be life threatening and she should present to the ED. Patient History Patient Active Problem List Diagnosis [...] for activity change, chills and fever. HENT: Negative for ear pain and sore throat. Eyes: Negative for pain and visual disturbance. Respiratory: Negative for cough and shortness of breath. Cardiovascular: Negative for chest pain and palpitations. Gastrointestinal: Negative for abdominal pain, diarrhea, nausea and vomiting. Genitourinary: Negative for dysuria and hematuria. Musculoskeletal: Negative for arthralgias and back pain. Skin: Negative for color change and rash. Neurological: Positive for seizures. Negative for syncope. All other systems reviewed and are negative. Physical Exam ED Triage Vitals [08/25/19 0713] Temp Pulse Resp BP SpO2 36.6 ??C (97.8 ??F) 89 18 121/80 100 % Temp src Heart Rate Source Patient Position BP Location FiO2 (%) Temporal -- -- -- -- Physical Exam Vitals signs and nursing note reviewed. Constitutional: General: She is not in acute distress. Appearance: She is well-developed. HENT: Head: Normocephalic and atraumatic. Nose: Nose normal. Mouth/Throat: Mouth: Mucous membranes are moist. Eyes: Extraocular Movements: Extraocular movements intact. Conjunctiva/sclera: Conjunctivae normal. Pupils: Pupils are equal, round, and reactive to light. Neck: Musculoskeletal: Neck supple. Cardiovascular: Rate and [...] oriented to person, place, and time. Vitals: 08/25/19 0820 08/25/19 0825 08/25/19 0830 08/25/19 0835 BP: 94/67 Pulse: 91 70 97 84 Resp: Temp: TempSrc: SpO2: 100% 100% 100% 100% Labs Reviewed URINALYSIS AND REFLEX TO MICROSCOPIC AND CULTURE - Abnormal Result Value Color, ur Yellow Clarity, ur Clear Specific gravity, ur >1.030 (*) pH, urine 5.5 Protein, ur ql 1+ (*) Glucose, ur ql Negative Ketones, ur Negative Bilirubin, ur Negative Blood, ur 1+ (*) Urobilinogen, ur <2.0 Nitrite, ur Negative Leukocyte esterase, ur Trace (*) UA reflex comment Reflex to microscopic UA will be performed. Narrative: Urine pH is affected by diet, medications, systemic acid-base disturbances, and renal tubular function. pH may affect urinary stone formation. For example, urine pH below 6.0 may help reduce the tendency for calcium phosphate stones and pH greater than 6.0 may reduce the tendency for uric acid stone formation. Source: [employer].Last revised 03-08-2017 CBC WITH AUTO DIFFERENTIAL - Abnormal WBC 6.5 Hgb 10.8 (*) Hct 34.6 (*) Plt 307 MPV 9.1 RBC 3.84 (*) MCV 90.1 MCH 28.1 MCHC 31.2 (*) RDW CV 14.0 RDW SD 45.4 NRBC abs 0.00 ERYTHROCYTE SEDIMENTATION RATE - Abnormal Erythrocyte sedimentation rate 31 (*) DRUGS OF ABUSE SCREEN, URINE WITHOUT CONFIRMATION - Abnormal Amphetamine, ur Not Detected Barbiturates, ur Not Detected Benzodiazepines, ur Detected (*) Cannabinoids, ur Not Detected Cocaine, ur Not Detected Fentanyl, Ur Not Detected Methadone, ur Not Detected Opiates, ur Not Detected Oxycodone, ur Not Detected Phencyclidine, ur Not Detected Urine Creatinine 238 Narrative: Drug of Abuse screening is performed by immunoassay for medical purposes only. This is not to be used for Pain Management purposes. PROLACTIN - Abnormal Prolactin 27.3 (*) URINALYSIS, MICROSCOPIC ONLY - Abnormal WBC, ur 0-5 RBC, ur 3-5 (*) Epithelial cells, squamous, ur 6-10 (*) Bacteria, ur Trace (*) Mucous, ur Present (*) Hyaline casts, ur 1-5 Culture Reflex Comment Value: Reflex conditions for urine culture (WBC >10) not met. COMPREHENSIVE METABOLIC PANEL Sodium 136 Potassium, pl 3.7 Chloride 100 CO2 27 Anion gap 9 BUN 12 Creatinine 0.61 Glucose 91 Calcium 9.0 Bilirubin, total 0.3 Protein, pl 6.7 Albumin 3.8 Alk phos 46 ALT 12 AST 13 MAGNESIUM Magnesium 1.7 TSH Thyroid Stimulating Hormone 2.96 T4, FREE Free T4 1.03 PROTIME-INR PT 11.7 INR 1.0 HCG, URINE, QUALITATIVE HCG, ur Negative DIFFERENTIAL AUTO Neutrophil abs 4.9 Imm gran abs 0.0 Lymphocyte abs 1.1 Monocyte abs 0.4 Eosinophil abs 0.1 Basophil abs 0.0 Neutrophil pct 75.8 Imm gran pct 0.5 Lymphocyte pct 16.5 Monocyte pct 5.7 Eosinophil pct 1.2 Basophil pct 0.3 EGFR GFR 124 EEG (Results Pending) EEG (Results Pending) Procedures [facility] ED Course as of Aug 24 1424 Time: 08/24 4030 Comment: Discussed case with Dr. Fernando, who agrees with the plan of care. By: Dianna Gutierres Time: 08/24 1048 Comment: Pt wants to do everything outpatient, will sign out AMA. Pays sandoval, but [facility]. Will See Dr Abdullahi JOSUE Advised getting EEG might be difficult, pt understands. By: Jorge Arriaga MD Time: 08/24 1410 Comment: Normal EKG 08:01 AM Sinus rate 78 By: Dianna Gutierres Final diagnoses: Seizure ([facility]) Lupus ([facility]) This note was prepared by Dianna Gutierres, acting as a Scribe for Jorge Arriaga MD . I electronically signed this note at 8:01 AM on 08/25/2019. I, Jorge Arriaga MD, have personally performed the services described in the documentation, reviewed the documentation, as recorded by the scribe in my presence. Jorge Arriaga MD 08/25/19 1425 * Christina Bal, RN - 08/25/2019 7:11 AM CDT Pt to the ED with complaints of a seizure two days ago, states she feels another one coming on. documented in this encounter Plan of Treatment Scheduled Orders Name Type Priority Associated Diagnoses Orde r Schedule EEG Neurology Routine Lupus ([facility]) Ordered: 08/25/2019 documented as of this encounter Procedures Procedure Name Priority Date/Time Associated Diagnosis Comments URINALYSIS AND REFLEX TO MICROSCOPIC AND CULTURE STAT 08/25/2019 8:40 AM CDT DRUGS OF ABUSE SCREEN, URINE WITHOUT CONFIRMATION STAT 08/25/2019 8:40 AM CDT HCG, URINE, QUALITATIVE STAT 08/25/2019 8:40 AM CDT URINALYSIS, MICROSCOPIC ONLY STAT 08/25/2019 8:40 AM CDT EGFR STAT 08/25/2019 8:19 AM CDT DIFFERENTIAL AUTO STAT 08/25/2019 8:1 9 AM CDT CBC WITH AUTO DIFFERENTIAL STAT 08/25/2019 8:19 AM CDT PROLACTIN Routine 08/25/2019 8:19 AM CDT ERYTHROCYTE SEDIMENTATION RATE STAT 08/25/2019 8:19 AM CDT PROTIME-INR STAT 08/25/2019 8:19 AM CDT TSH STAT 08/25/2019 8:19 AM CDT T4, FREE STAT 08/25/2019 8:19 AM CDT MAGNESIUM Routine 08/25/2019 8:19 AM CDT COMPREHENSIVE METABOLIC PANEL STAT 08/25/2019 8:19 AM CDT ECG 12-LEAD Routine 08/25/2019 8:01 AM CDT documented in this encounter Results * EEG (09/16/2019 11:14 AM CDT) Anatomical Region Laterality Modality EEG Narrative 09/16/2019 10:00 AM CDT Dilan Del Toro MD ? 09/16/2019 ??3:48 PM History: This is a 29 years old female with history of seizure. The condition of the patient during the tracing was reported to be awake and drowsy. The quality of study is compromised by excessive artifact over right temporal region. The background activity consisted of posterior dominant alpha activity of moderate amplitude. ??There was occasional sharp wave with phase reversal over T5 region. EKG showed regular rate and rhythm. Impressions: This is an abnormal EEG because of occasional sharp wave with phase reversal over left posterior temporal region. ??The finding may represent underlying cortical hyperexcitability. ??The study is limited by excessive artifact over right temporal region. ??The clinical correlation is recommended. Jorge Arriaga MD NEUROLOGY ORDERABLES Final Result * (ABNORMAL) Urinalysis, microscopic only (08/25/2019 8:40 AM CDT) WBC, ur 0-5 0 - 5 /HPF [facility] ([place]) RBC, ur 3-5(A) 0 - 2 /HPF [facility] ([place]) Epithelial cells, squamous, ur 6-10(A) 0 - 5 /HPF [facility] ([place]) Bacteria, ur Trace(A) [facility] ([place]) Mucous, ur Present(A) [facility] ([place]) Hyaline casts, ur 1-5 0 - 10 /LPF [facility] ([place]) Culture Reflex Comment Reflex conditions for urine culture (WBC >10) not met. [facility] ([place]) Urine, clean voided 08/25/2019 8:40 AM CDT 08/25/2019 8:55 AM CDT Jorge Arriaga MD LAB URINE ORDERABLES Final Result Performing Organization Address City/[facility]/ZIP Co de Phone Number ARPITA MARTIN ([place]) 1 [facility] [place] [address] * hCG, urine, qualitative (08/25/2019 8:40 AM CDT) HCG, ur Negative Negative [facility] ([place]) Urine 08/25/2019 8:40 AM CDT 08/25/2019 8:55 AM CDT Jorge Arriaga MD LAB URINE ORDERABLES Final Result [facility] ([place]) 1 [facility] [place] [address] * (ABNORMAL) Drugs of Abuse Screen, Urine without Confirmation (08/25/2019 8:40 AM CDT) [facility] Amphetamine, ur Not Detected CutOff 500ng/mL [facility] [...] Data was last reviewed 2018. Benzodiazepines, ur Detected(A) CutOff 100ng/mL [facility] ([place]) Comment: Interpretive [...] 2018. Methadone, ur Not Detected CutOff 300ng/mL [facility] ([place]) Comment: Interpretive Data - Methadone: ??Samples containing greater than 300 ng/mL d,l-methadone or other cross-reacting compounds are reported as positive. ??False positive and false negative results are possible. Current Interpretive Data was last reviewed 2018. Opiates, ur Not Detected CutOff 300ng/mL [facility] ([place]) Comment: Interpretive Data - Opiates: ??Samples [...] Not Detected CutOff 25 ng/mL [facility] ([place]) Comment: Interpretive Data - Phencyclidine: ??Samples containing greater than 25 ng/mL phencyclidine or other cross-reacting compounds are reported as positive. ??False positive and false negative results are possible. ?? Current Interpretive Data was last reviewed 2018. Urine Creatinine 238 mg/dL FRANCISCO MARTIN ([place]) Comment: Interpretive Data Urine Creatinine: < 10 mg/dL is extremely dilute = or > 10 but < 20 mg/dL is dilute = or > 20 mg/dL is normal Current Interpretive Data was last revised on 2017. Urine 08/25/2019 8:40 AM CDT 08/25/2019 8:44 AM CDT Narrative [facility] ([place]) - 08/25/2019 9:12 AM CDT Drug of Abuse screening is performed by immunoassay for medical purposes only. ??This is not to be used for Pain Management purposes. us Jorge Arriaga MD LAB URINE ORDERABLES Final Result Performing Organization Address City/[facility]/ZIP Co de Phone Number [facility] ([place]) 1 [facility] [place] [address] * (ABNORMAL) Urinalysis reflex to microscopic and culture Urine, clean voided (08/25/2019 8:40 AM CDT) Color, ur Yellow Yellow [facility] ([place]) Clarity, ur Clear Clear [facility] ([place]) Specific gravity, ur >1.030(H) 1.010 - 1.025 [facility] ([place]) pH, urine 5.5 [facility] ([place]) Protein, ur ql 1+(A) Negative [facility] ([place]) Glucose, ur ql Negative Negative [facility] ([place]) Ketones, ur Negative Negative [facility] ([place]) Bilirubin, ur Negative Negative [facility] ([place]) Blood, ur 1+(A) Negative [facility] ([place]) Urobilinogen, ur <2.0 <2.0 mg/dL [facility] ([place]) Nitrite, ur Negative Negative [facility] ([place]) Leukocyte esterase, ur Trace(A) Negative [facility] ([place]) UA reflex comment Reflex to microscopic UA will be performed. [facility] ([place]) Urine, clean voided 08/25/2019 8:40 AM CDT 08/25/2019 8:44 AM CDT Narrative [facility] ([place]) - 08/25/2019 8:58 AM CDT ?? Urine pH is affected by diet, medications, systemic acid-base disturbances, and renal tubular function. ??pH may affect urinary stone formation. ??For example, urine pH below 6.0 may help reduce the tendency for calcium phosphate stones and pH greater than 6.0 may reduce the tendency for uric acid stone formation. Source: [employer]. Last revised 03-08-2017 Jorge Arriaga MD LAB MICROBIOLOGY - GENERAL ORDERABLES Final Result Performing Organization Address City/[facility]/ZIP Co de Phone Number [facility]ITA MARTIN ([place]) 1 [facility] [place] [address] * eGFR (08/25/2019 8:19 AM CDT) eGFR 124 mL/min/1.7 3 m2 [facility] ([place]) Comment: Interpretive Data Reference Interval Normal ?>/= 90 mL/min/1.73m2 Mildly decreased* ? 60 - 89 mL/min/1.73m2 Mildly to moderately decreased ?45 - 59 mL/min/1.73m2 Moderately to severely decreased ??30 - 44 mL/min/1.73m2 Severely decreased ?15 - 29 mL/min/1.73m2 Kidney Failure ?< 15 ??mL/min/1.73m2 *Relative to young adult level If -Stateless multiply value by 1.16. Estimated glomerular filtration [...] was last reviewed 2015. Blood specimen (specimen) 08/25/2019 8:19 AM CDT 08/25/2019 8:31 AM CDT us Jorge Arriaga MD LAB BLOOD ORDERABLES Final Result [facility]ART[facility] ([place]) 1 [facility] [place] [address] * Differential, auto (08/25/2019 8:19 AM CDT) Neutrophil abs 4.9 1.7 - 6.5 K/cumm [facility] ([place]) Imm gran abs 0.0 0.0 - 0.1 K/cumm [facility] ([place]) Lymphocyte abs 1.1 0.8 - 3.3 K/cumm [facility] ([place]) Monocyte abs 0.4 0.2 - 0.8 K/cumm [facility] ([place]) Eosinophil abs 0.1 0.0 - 0.5 K/cumm [facility] ([place]) Basophil abs 0.0 0.0 - 0.1 K/cumm [facility] ([place]) Neutrophil pct 75.8 % [facility] ([place]) Comment: Interpretive [...] was last revised on 2017. Lymphocyte pct 16.5 % [facility] ([place]) Comment: Interpretive Data Percent cell count reference ranges are not reported, since discordance with absolute values may lead to misinterpretation of CBC data. Current Interpretive Data was last revised on 2017. Monocyte pct 5.7 % [facility] ([place]) Comment: Interpretive Data Percent cell count reference ranges are not reported, since discordance with absolute values may lead to misinterpretation of CBC data. Current Interpretive Data was last revised on 2017. Eosinophil pct 1.2 % [facility] ([place]) Comment: Interpretive [...] last revised on 2017. Blood specimen (specimen) 08/25/2019 8:19 AM CDT 08/25/2019 8:31 AM CDT Jorge Arriaga MD LAB BLOOD ORDERABLES Final Result Performing Organization Address [facility] Co de Phone Number ARPITA MARITN ([place]) 1 [facility] [place] [address] * (ABNORMAL) Prolactin (08/25/2019 8:19 AM CDT) Prolactin 27.3(H) 4.8 - 23.3 ng/mL ARPITA MARTIN ([place]) Comment:Testing performed by : [facility], [address] [place] [address], [address] Blood specimen (specimen) 08/25/2019 8:19 AM CDT 08/25/2019 11:54 AM CDT Jorge Arriaga MD LAB BLOOD ORDERABLES Final Result Performing Organization Address [facility] de Phone Number ARPITA MARTIN ([place]) 1 [facility] [place] [place] [address] * Protime-INR (08/25/2019 8:19 AM CDT) PT 11.7 9.5 - 13.0 sec ARP[facility] MARTIN ([place]) INR 1.0 0.9 - 1.2 [facility] ([place]) Comment: Interpretive data Oral anticoagulant therapeutic ranges: Venous thromboembolism prophylaxis or treatment: 2.0-3.0 CARDIOLOGY Standard range: 2.0-3.0 High-intensity range: 2.5-3.5 Refer to indication-specific guidelines for appropriate target ranges for prosthetic heart valve replacement. Current interpretive data was last revised on 2019. Blood specimen (specimen) 08/25/2019 8:19 AM CDT 08/25/2019 8:31 AM CDT Jorge Arriaga MD LAB BLOOD ORDERABLES Final Result Performing Organization Address [facility] Co de Phone Number ARPITA MARTIN ([place]) 1 [facility] [place] [place] [address] * T4, free (08/25/2019 8:19 AM CDT) Free T4 1.03 0.90 - 1.70 ng/dL [facility] ([place]) Blood specimen (specimen) 08/25/2019 8:19 AM CDT 08/25/2019 8:31 AM CDT Jorge Arriaga MD LAB BLOOD ORDERABLES Final Result ARPITA MARTIN ([place]) 1 [facility] [place] [address] * TSH (08/25/2019 8:19 AM CDT) Thyroid Stimulating Hormone 2.96 0.30 - 4.20 mcIUnit/mL [facility] ([place]) Blood specimen (specimen) 08/25/2019 8:19 AM CDT 08/25/2019 8:31 AM CDT Jorge Arriaga MD LAB BLOOD ORDERABLES Final Result Performing Organization Address City/[facility] Co de Phone Number ARPITA MARTIN ([place]) 1 [facility] [place] [address] * (ABNORMAL) Erythrocyte sedimentation rate (08/25/2019 8:19 AM CDT) Erythrocyte sedimentation rate 31(H) 1 - 20 mm/hr [facility] ([place]) Blood specimen (specimen) 08/25/2019 8:19 AM CDT 08/25/2019 8:31 AM CDT Jorge Arriaga MD LAB BLOOD ORDERABLES Final Result ARP[facility] MARTIN ([place]) 1 [facility] [place] [address] * Magnesium (08/25/2019 8:19 AM CDT) Magnesium 1.7 1.4 - 2.5 mg/dL [facility] ([place]) Blood specimen (specimen) 08/25/2019 8:19 AM CDT 08/25/2019 8:31 AM CDT us Jorge Arriaga MD LAB BLOOD ORDERABLES Final Result ARPITA MARTIN ([place]) 1 [facility] [place] [address] * Comprehensive metabolic panel (08/25/2019 8:19 AM CDT) Sodium 136 135 - 145 mmol/L [facility] ([place]) Potassium, pl 3.7 3.3 - 4.9 mmol/L [facility] ([place]) Chloride 100 97 - 110 mmol/L [facility] ([place]) CO2 27 22 - 32 mmol/L [facility] ([place]) Anion gap 9 2 - 15 mmol/L [facility] ([place]) BUN 12 8 - 25 mg/dL [facility] ([place]) Creatinine 0.61 0.60 - 1.10 mg/dL [facility] ([place]) [...] interpretive data was last revised 2017. Calcium 9.0 8.5 - 10.3 mg/dL [facility] ([place]) Bilirubin, total 0.3 0.1 - 1.2 mg/dL [facility] ([place]) Protein, pl 6.7 6.5 - 8.5 g/dL [facility] ([place]) Albumin 3.8 3.5 - 5.0 g/dL [facility] ([place]) Alk phos 46 40 - 130 Units/L [facility] ([place]) ALT 12 7 - 45 Units/L [facility] ([place]) AST 13 10 - 45 Units/L [facility] ([place]) Blood specimen (specimen) 08/25/2019 8:19 AM CDT 08/25/2019 8:31 AM CDT Jorge Arriaga MD LAB BLOOD ORDERABLES Final Result [facility] ([place]) 1 [facility] [place] [address] * (ABNORMAL) CBC with auto differential (08/25/2019 8:19 AM CDT) WBC 6.5 3.8 - 9.9 K/cumm [facility] ([place]) Hgb 10.8(L) 11.9 - 15.5 g/dL [facility] ([place]) Hct 34.6(L) 35.6 - 45.5 % [facility] ([place]) Plt 307 150 - 400 K/cumm [facility] ([place]) MPV 9.1 9.1 - 12.3 fL [facility] ([place]) RBC 3.84(L) 3.90 - 5.20 M/cumm [facility] ([place]) MCV 90.1 81.3 - 96.4 fL [facility] ([place]) MCH 28.1 27.1 - 33.3 pg [facility] ([place]) MCHC 31.2(L) 32.3 - 35.7 g/dL [facility] ([place]) RDW CV 14.0 11.1 - 14.9 % [facility] ([place]) RDW SD 45.4 35.7 - 48.1 fL [facility] ([place]) NRBC abs 0.00 0.00 - 0.01 K/cumm [facility] ([place]) Blood specimen (specimen) 08/25/2019 8:19 AM CDT 08/25/2019 8:31 AM CDT Jorge Arriaga MD LAB BLOOD ORDERABLES Final Result Performing Organization Address City/[facility]/ZIP Co de Phone Number [facility] ([place]) 1 [facility] [place] [address] * ECG 12 lead (08/25/2019 8:01 AM CDT) 08/25/2019 8:01 AM CDT Narrative [facility] - 08/25/2019 10:34 AM CDT Vent Rate: 78 bpm RR Interval: 766 msec IN Interval: 140 msec QRS Duration: 88 msec QT Interval: 368 msec QTC Interval: 401 msec P-R-T [place]: 37 - 19 - 10 degrees SINUS RHYTHM NORMAL ECG COMPARED TO PRIOR EKG, NO SIGNIFICANT CHANGE Electronically Signed By: Dr Huseyin Castrejon us Jorge Arriaga MD ECG ORDERABLES Final Resul t [facility] documented in this encounter Visit Diagnoses Diagnosis Seizure (HCC)- Primary Other convulsions Lupus Systemic lupus erythematosus Seizure (HCC) Other convulsions Lupus Systemic lupus erythematosus documented in this encounter Additional Health Concerns Infection Onset Date Last Indicated Resolved Time COVID19 08/21/2019 08/21/2019 09/04/2019 3:05 AM CDT documented as of this encounter Care Teams Housecalls Nurse Relationship Specialty [place] [id number] [address] [address] PCP - General 07/04/19 [place] [address] [address] [address] 11/16/18 documented as of this encounter
--- OUTSIDE RECORDS SUMMARY | 2024-02-24 20:14 | XMS_ITS | Encounter Summary ---
Author Organization [facility] Healthcare Address [address] [place] [address] Care Team Providers Care Chief Deputy Name Role Phone Huseyin Dangelo MD Unavailable [phone] Brian Mon MD Primary Care Provider + Encounter Details Date Type Department Care Team (Late st Contact Info) Description 07/27/2019 1:35 PM CDT Lab [address] [address] Pre-op testing Social History Tobacco Use Types Packs/Day Years [...] Associated Diagnosis Comments COVID-19 CORONAVIRUS RNA Routine 07/27/2019 10:00 AM CDT Pre-op testing documented in this encounter Results * COVID-19 Coronavirus RNA Nasopharyngeal (07/27/2019 10:00 AM CDT) COVID-19 RNA Negative Negative ARPITA POLLARD Comment: Testing performed by [facility] ([phone]). This test is performed using the [place] REI Xpert Xpress SARS-CoV-2 assay. ??This is a real-time RT-PCR test intended for the qualitative detection of nucleic acid from the SARS-CoV-2. ??This assay has been reviewed by the FDA for Emergency Use Authorization (EUA). The performance characteristics have been verified by the [facility]. ??Results must be considered in the clinical context and a negative result does not rule out infection. Nasopharyngeal 07/27/2019 10 :00 AM CDT 07/27/2019 2:19 PM CDT Narrative [facility] 07/27/2019 3:34 PM CDT Is the patient experiencing any symptoms consistent with COVID (eg. Fever, cough, shortness of breath)?->No What is the reason for testing?->Resident of congregate living facility, e.g. long term, SNF Dang Denis MD LAB MICROBIOLOGY - GENERAL ORDERABLES Final Result [facility] [address] [place] [address] documented in this encounter Visit Diagnoses Diagnosis Pre-op testing Unspecified pre-operative examination documented in this encounter Additional Health Concerns Infection Onset Date Last Indicated Resolved Time COVID: Suspected 07/27/2019 07/27/2019 07/28/2019 3:34 PM CDT documented as of this encounter Care Teams Chief Deputy Relationship Specialty [place] [address] [address] [address] PCP - General 07/04/19 [place] [address] [address] [place] [address] 11/16/18 documented as of this encounter
--- OUTSIDE RECORDS SUMMARY | 2024-02-24 20:14 | XMS_ITS | Encounter Summary ---
Author Organization [facility] Address [address] [place] [address] Phone Care Team Providers Care Trimming Machine Set Up Operator Name Role Phone Huseyin Dangelo MD Unavailable [phone] Brian Mon MD Primary Care Provider + Encounter Details Date Type Department Care Team (Late st Contact Info) Description 09/01/2019 1:00 PM CDT Office Visit [facility] Rheumatology [address] [facility] [address] [place] [address] Carolina Delarosa MD [address] [place] [address] Lupus (CMS/HCC) (Primary Dx) Social [...] Sign Reading Time Taken Comments Blood Pressure 116/78 09/01/2019 12:51 PM CDT Pulse 78 09/01/2019 12:51 PM CDT Temperature 36.8 ??C (98.2 ??F) 09/01/2019 12:51 PM C DT Respiratory Rate - - Oxygen Saturation - - Inhaled Oxygen Concentration - - Weight 75.5 kg (166 lb 6.4 oz) 09/01/2019 12:51 PM CDT Height 160 cm (5' 3 ) 09/01/2019 12:51 PM CDT Body Mass Index 29.48 09/01/2019 12:51 PM CDT documented in this encounter Progress Notes * Carolina Delarosa MD - 09/01/2019 1:00 PM CDT PATIENT NAME: Carito Rausch : 1990 09/01/2019 HISTORY OF PRESENT ILLNESS: ia a 29 y.o. 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 Dr. Lobo. The patient underwent of spontaneous [...] She also has a positive double-stranded DNA, GAS REVERSER antibody and a low C4 and C3 [...] history occasional marijuana use Interim She has come in for her [id number] visit today. She has been calling our office after hours with symptoms pretty much on a daily basis. When I did a IOV video in June I had advised her Benlysta however she has yet not initiated Benlysta. She now tells me that she is going to get insurance throughher work starting September 10. Prior to this we were trying to process her patient assistance for Benlysta. She continues to be on hydroxychloroquine 200 mg a day and prednisone 10 mg in the morning and 2.5 mg at night ALLERGIES: Allergies Allergen Reactions ??? Methylprednisolone Anaphylaxis and Syncope Syncope ??? Venlafaxine Itching CURRENT MEDICATION: Current Outpatient Medications: ??? acidophilus-pectin, citrus 100 million cell-10 mg capsule, Take by mouth, Disp: , Rfl: ??? albuterol (PROAIR RESPICLICK) 90 mcg/actuation inhaler, Inhale 2 puffs every 6 (six) hours as needed for wheezing, Disp: , Rfl: ??? ALPRAZolam (XANAX) 0.25 mg tablet, Take 0.25 mg by mouth 3 (three) times a day as needed , Disp: , Rfl: ??? amoxicillin (amoxicillin) 500 mg tablet/capsule, Take 500 mg by mouth 3 (three) times a day, Disp: , Rfl: ??? escitalopram (LEXAPRO) 5 mg tablet, Take 5 mg by mouth daily, Disp: , Rfl: ??? hydroxychloroquine (PLAQUENIL) 200 mg tablet, Take 100 mg by mouth nightly, Disp: , Rfl: ??? hydrOXYzine (ATARAX) 25 mg tablet, Take 1 tablet (25 mg total) by mouth every 6 (six) hours, Disp: 12 tablet, Rfl: 0 ??? multivitamin capsule, Take 1 capsule by mouth daily, Disp: , Rfl: ??? omeprazole (PriLOSEC) 20 mg capsule, Take 20 mg by mouth daily, Disp: , Rfl: ??? ondansetron (ZOFRAN) 4 mg tablet, Take 4-8 mg by mouth every 8 (eight) hours as needed, Disp: ,Rfl: ??? predniSONE (DELTASONE) 1 mg tablet, Take 1 mg by mouth daily , Disp: , Rfl: ??? predniSONE (DELTASONE) 10 mg tablet, Take 12.5 mg by mouth daily , Disp: , Rfl: ??? belimumab (Benlysta) auto-injector, Inject 1 mL (200 mg total) under the skin every 7 days (Patient not taking: Reported on 08/26/2019), Disp: 4 Syringe, Rfl: 3 ??? carBAMazepine (TEGretol) 100 mg chewable tablet, Take one tablet by mouth twice a day for one week, then 2 tablets twice a day (Patient not taking: Reported on 09/01/2019), Disp: 120 tablet, Rfl: 3 ??? ergocalciferol (VITAMIN D) 50,000 unit capsule, TAKE 1 CAPSULE BY MOUTH ONE TIME PER WEEK, Disp: , Rfl: ??? fexofenadine (KERI) 60 mg tablet, Take 1 tablet (60 mg total) by mouth 2 (two) times a day (Patient not taking: Reported on 08/26/2019), Disp: 20 tablet, Rfl: 0 ??? ketorolac (TORADOL) 10 mg tablet, Take 10 mg by mouth every 6 (six) hours as needed for pain, Disp: , Rfl: ??? levETIRAcetam (KEPPRA) 500 mg tablet, Take 1 tablet (500 mg total) by mouth 2 (two) times a day(Patient not taking: Reported on 08/26/2019), Disp: 50 tablet, Rfl: 0 ??? traZODone (DESYREL) 150 mg tablet, Take 150 mg by mouth nightly, Disp: , Rfl: PHYSICAL EXAM: Vitals BP 116/78 Pulse 78 Temp 36.8 ??C (98.2 ??F) Ht 160 cm (5' 3 ) Wt 75.5 kg (166 lb 6.4 oz) LMP 08/25/2019 BMI 29.48 kg/m?? Physical Exam General examination patient looks cushingoid. She does not have a rash today. Joint examination is essentially within normal limits The no palpable cervical lymph nodes. She has 1 small oral ulcer. RS is clear to auscultation CVS S1-S2 is regular with no rub murmur or gallop LABORATORY DATA: Lab Results Component Value Date WBC 6.5 08/25/2019 HGB 10.8 (L) 08/25/2019 HCT 34.6 (L) 08/25/2019 MCV 90.1 08/25/2019 LABPLAT 307 08/25/2019 Lab Results Component Value Date AST 13 08/25/2019 ALT 12 08/25/2019 CREATININE 0.61 08/25/2019 Lab Results Component Value Date SEDRATE 31 (H) 08/25/2019 Lab Results Component Value Date CRP 13.8 (H) 05/24/2019 ASSESSMENT AND PLAN: SLE In conclusion this is a 29-year-old female with a diagnosis of lupus. She has been diagnosed over 2 years ago but has not been on any study medications other than prednisone. She recently started taking hydroxychloroquine. The patient is worried about multiple things including is her diagnosis correct, the other medications out that, she has multiple symptoms that a nonspecific and hardto attribute to lupus. She seems to be having a hard time mentally with a diagnosis , she tends to ask the same questions several times and has been even calling our after hours line on a regular basis Again I think her diagnosis pretty clear she has a positive BARAK 1:1280, positive double-stranded DNA, low C3, C4, positive GAS REVERSER. Her APS serologies are largely negative. I discussed with the patient that I do not think her diagnosis of lupus is in question. At this point the patient feels more settled since she has been on Lexapro and Xanax. I suspect there is a component of anxiety and depression here. Since she now has is going to have insurance I advised her to try Benlysta infusions. This will allow us to monitor her and we can document if there are any reactions. The patient also prefers infusions and agree to call us when her insurance has gone through I advised her to stay with prednisone 10 mg in the morning 2 and half at night eventually we will try and get her to 10 mg once a day. She will continue with hydroxychloroquine 1 tablet a day DISPOSITION: The patient will return follow up in 3 month s Carolina Delarosa MD documented in this encounter Plan of Treatment Not on file documented as of this encounter Visit Diagnoses Diagnosis Lupus- Primary Systemic lupus erythematosus documented in this encounter Historical Medications * This list may reflect changes made after this encounter. ondansetron (ZOFRAN) 4 mg tablet Take 4-8 mg by mouth every 8 (eight) hours as needed 08/31/2019 10/03/2019 amoxicillin (amoxicillin) 500 mg tablet/capsule Take 500 mg by mouth 3 (three) times a day 08/31/2019 09/07/2019 added in this encounter Additional Health Concerns Infection Onset Date Last Indicated Resolved Time COVID19 08/21/2019 08/21/2019 09/04/2019 3:05 AM CDT documented as of this encounter Care Teams Trimming Machine Set Up Operator Relationship Specialty [place] [address] [address] [address] PCP - General 07/04/19 [place] [address] [address] [address] 11/16/18 documented as of this encounter
--- OUTSIDE RECORDS SUMMARY | 2024-02-24 20:14 | XMS_ITS | Encounter Summary ---
Author Organization [facility] Healthcare Address [address] [place] [address] Care Team Providers Care Squeegeer And Former Name Role Phone Huseyin Dangelo MD Unavailable [phone] Brian Mon MD Primary Care Provider + Reason for Referral * Neurology (Routine) - Closed Specialty Diagnoses / Procedures Referred By Maryac t Referred To Contact Diagnoses Seizure (HCC) Lupus [place] [address] [place], [place] [address] [address] [address] Phone: tel: fax: Referral ID Status Reason Start Date Expiration Date Visits Re quested Visits Authorized [id number] Closed 08/25/2019 03/05/2021 1 1 Reason for Visit * Neurology (Routine) - Closed Specialty Diagnoses / Procedures Referred By Jud freeman Referred To Contact Diagnoses Seizure (HCC) Lupus Procedures EEG Jorge Arriaga MD [facility] [employer] [address] [address] Phone: tel: fax: Referral ID Status Reason Start Date Expiration Date Visits Re quested Visits Authorized [id number] Closed 08/25/2019 03/05/2021 1 1 Encounter Details Date Type Department Care Team (Late st Contact Info) Description 09/16/2019 9:52 AM CDT - 09/16/2019 11:59 PM CDT Hospital Encounter [facility] Neurological Disorders Testing [address] [place] [address] Jorge Arriaga MD [address] [place] [address] Seizure (CMS/HCC); Lupus (CMS/HCC) Discharge Disposition: Discharge to home or [...] documented in this encounter Procedure Notes * Dilan Del Toro MD - 09/16/2019 10:00 AM CDTAssociated Order(s): EEG History: This is a 29 years old female with history of seizure. The condition of the patient during the tracing was reported to be awake and drowsy. The quality of study is compromised by excessive artifact over right temporal region. The background activity consisted of posterior dominant alpha activity of moderate amplitude. Therewas occasional sharp wave with phase reversal over T5 region. EKG showed regular rate and rhythm. Impressions: This is an abnormal EEG because of occasional sharp wave with phase reversal over left posterior temporal region. The finding may represent underlying cortical hyperexcitability. The study is limitedby excessive artifact over right temporal region. The clinical correlation is recommended. documented in this encounter Plan of Treatment Not on file documented as of this encounter Procedures Procedure Name Priority Date/Time Associated Diagnosis Comments EEG Routine 09/16/2019 11:14 AM CDT Seizure (CMS/HCC) Lupus (CMS/HCC) documented in this encounter Results * EEG [...] Jorge Arriaga MD NEUROLOGY ORDERABLES Final Result documented in this encounter Visit Diagnoses Diagnosis Seizure (HCC) Other convulsions Lupus Systemic lupus erythematosus documented in this encounter Additional Health Concerns Infection Onset Date Last Indicated Resolved Time Exposure, COVID-19 Comment:Added automatically based on COVID19 lab answers indicating exposure risk 09/11/2019 09/11/2019 09/26/2019 3:05 AM C DT documented as of this encounter Care Teams Squeegeer And Former Relationship Specialty [place] [address] [address] [place] [address] PCP - General 07/04/19 [place] [address] [address] 11/16/18 documented as of this encounter
--- OUTSIDE RECORDS SUMMARY | 2024-02-24 20:14 | XMS_ITS | Encounter Summary ---
Author Organization [facility] Address [address] [place] [address] Phone Care Team Providers Care Multiple Resaw Operator Name Role Phone Huseyin Dangelo MD Unavailable [phone] Brian Mon MD Primary Care Provider + Reason for Visit * Reason Onset Date Comments Test Results 08/28/2019 Encounter Details Date Type Department Care Team (Late st Contact Info) Description 08/28/[address] [facility] Rheumatology [facility] [address]th [place] [address] [place] [address] Nallely Griffiths CMA Test Results Social History Tobacco Use Types [...] Encounter - Nallely Griffiths CMA - 08/28/2019 11:17 AM CDT I called and spoke to pt who confirmed she was not told she was positive for COVID. I also called [facility] where the test was completed. Spoke with Franca who confirmed the rest was negative and there was no document of positive testing in ER note. Patient was tested 3 other times and they where all negative. We will forward this to Dr Delarosa for advise for pt F2F visit on Thursday 08/31. This call was made due to the alert in the patients chart of positive test on 08/20. documented in this encounter Plan of Treatment Not on file documented as of this encounter Visit Diagnoses Not on filedocumented in this encounter Additional Health Concerns Infection Onset Date Last Indicated Resolved Time COVID19 08/21/2019 08/21/2019 09/04/2019 3:05 AM CDT documented as of this encounter Care Teams Multiple Resaw Operator Relationship Specialty [place] [address] [address] [address] PCP - General 07/04/19 [place] [address] [address] [address] 11/16/18 documented as of this encounter
--- OUTSIDE RECORDS SUMMARY | 2024-02-24 20:14 | XMS_ITS | Encounter Summary ---
Author Organization [facility] Healthcare Address [address] [place] [address] Care Team Providers Care Licensed Nuclear Control Room Operator Name Role Phone Huseyin Dangelo MD Unavailable [phone] Brian oMn MD Primary Care Provider + Encounter Details Date Type Department Care Team (Late st Contact Info) Description 07/21/2019 Orders Only [facility] IMU [address] [place] [address] Dang Denis MD [address] [place] [address] Social History Tobacco Use Types Packs/Day [...] Refills Last Filled Start Date End Date promethazine (PHENERGAN) 12.5 mg tablet Take 1 tablet (12.5 mg total) by mouth every 6 (six) hours as needed for nausea or vomiting for up to 7 days 30 tablet 07/21/2019 0 documented in this encounter Plan of Treatment Not on file documented as of this encounter Visit Diagnoses Not on filedocumented in this encounter Additional Health Concerns Infection Onset Date Last Indicated Resolved Time Respiratory Infection (BLANCA), contact + droplet Comment:Automatically added due to negative COVID-19 result. 07/08/2019 07/08/2019 07/22/2019 3:0 5 AM CDT documented as of this encounter Care Teams Licensed Nuclear Control Room Operator Relationship Specialty [place] [address] [address] [address] PCP - General 07/04/19 [place] [address] [address] [place] [address] 11/16/18 documented as of this encounter
--- OUTSIDE RECORDS SUMMARY | 2024-02-24 20:14 | XMS_ITS | Encounter Summary ---
Author Organization [facility] Healthcare Address [address] [place] [address] Care Team Providers Care Retarder Operator Name Role Phone Huseyin Dangelo MD Unavailable Brian Mon MD Primary Care Provider + Encounter Details Date Type Department Care Team (Late st Contact Info) Description 09/24/2019 9:00 AM CDT Lab [facility] [address] [place] [address] Lupus (CMS/HCC) Social History Tobacco Use Types [...] Procedure Name Priority Date/Time Associated Diagnosis Comments LUPUS ANTICOAGULANT PANEL PLUS REFLEXES Routine 09/24/2019 8:35 AM CDT Lupus (CMS/HCC) CARDIOLIPIN ANTIBODY, IGG Routine 09/24/2019 8:35 AM CDT Lupus (CMS/HCC) BETA 2 GLYCOPROTEIN IGM AB Routine 09/24/2019 8:35 AM CDT Lupus (CMS/HCC) BETA 2 GLYCOPROTEIN IGG AB Routine 09/24/2019 8:35 AM CDT Lupus (CMS/HCC) CARDIOLIPIN ANTIBODY, IGM Routine 09/24/2019 8:35 AM CDT Lupus (CMS/HCC) documented in this encounter Results * Cardiolipin antibody, IgG (09/24/2019 8:35 AM CDT) Cardiolipin, IgG 3.1 <=19.9 GPL U/mL ARPITA ROSADO Comment: Interpretive Data Negative: <20 GPL U/mL Positive: > or = 20 GPL U/mL Anticardiolipin antibodies are associated with certain clinical events including unexplained arterial and venous thromboemboli, and unexplained morbidity. However, detection of low levels of anticardiolipin antibodies occurs in both healthy individuals and patients with co-morbidities not associated with the antiphospholipid antibody (APA) syndrome including inflammatory and infectious conditions. In order to improve specificity, the International Congress on Antiphospholipid Antibodies recommends ACL antibodies of IgG or IgM isotype present in medium or high titer (e.g. > 40 GPL, or >the 99th percentile), on two or more occasions, at least 12 weeks apart, to support a diagnosis of antiphospholipid syndrome. The cutoff for this assay was developed from data based on the 99th percentile. In addition, the International Congress on Antiphospholipid Antibodies does not recommend testing for IgA URBANO. These results were obtained with the Jobspot 2200 System. Cardiolipin IgG values obtained with different manufacturers' assay methods may not be used interchangeably. Current interpretive data was last revised on 2016. Testing performed by: [facility], [address] [facility], [place]., [address] Blood specimen (specimen) 09/24/2019 8:35 AM CDT 09/24/2019 1:10 PM CDT us Carolina Prabir Sen MD LAB BLOOD ORDERABLES Final Result Performing Organization Address City/[facility]/ZIP Co de Phone Number ARPITA BARNESCH [address] [facility] [place] [address] * Cardiolipin antibody, IgM (09/24/2019 8:35 AM CDT) Cardiolipin, IgM 1.7 <=19.9 MPL U/mL ARPITA ROSADO Comment: Interpretive Data Negative: <20 MPL U/mL Positive: > or = 20 MPL U/mL Anticardiolipin antibodies are associated with certain clinical events including unexplained arterial and venous thromboemboli, and unexplained morbidity. However, detection of low levels of anticardiolipin antibodies occurs in both healthy individuals and patients with co-morbidities not associated with the antiphospholipid antibody (APA) syndrome including inflammatory and infectious conditions. In order to improve specificity, the International Congress on Antiphospholipid Antibodies recommends ACL antibodies of IgG or IgM isotype present in medium or high titer (e.g. > 40 MPL, or >the 99th percentile), on two or more occasions, at least 12 weeks apart, to support a diagnosis of antiphospholipid syndrome. The cutoff for this assay was developed from data based on the 99th percentile. ?? In addition, the International Congress on Antiphospholipid Antibodies does not recommend testing for IgA URBANO. The ACL IgM test can produce false positive results due to cross- reactivity with Rheumatoid factor, dsDNA or certain infectious disease antibodies. ??These results were obtained with the Jobspot 2200 System. Cardiolipin IgM values obtained with different manufacturers' assay methods may not be used interchangeably. Current interpretive data was last revised on 2016. Testing performed by: [facility], [address] [place]., [address] Blood specimen (specimen) 09/24/2019 8:35 AM CDT 09/24/2019 1:10 PM CDT Carolina Delarosa MD LAB BLOOD ORDERABLES Final Result Performing Organization Address City/[facility]/ZIP Co de Phone Number ARPITA BARNESCH [phone] [place] [address] * Beta 2 glycoprotein IgG Ab (09/24/2019 8:35 AM CDT) [facility] Beta-2 glycoprotein I, IgG <9.4 <15.0 (Negative) units/mL ARPITA ROSADO Comment: Test Performed by: [place] [address] Distribution A Class Lineman: Dima Travis M.D. Ph.D.; CLIA# [id number] Blood specimen (specimen) 09/24/2019 8:35 AM CDT 09/24/2019 9:45 AM CDT Carolina Delarosa MD LAB BLOOD ORDERABLES Final Result Performing Organization Address [facility] Co de Phone Number ARPITA BJW[facility] [address] [facility] [place] [address] * Beta 2 glycoprotein IgM Ab (09/24/2019 8:35 AM CDT) [facility] Beta-2 glycoprotein I, IgM <9.4 <15.0 (Negative) units/mL [facility] Comment: Test Performed by: [place] [address] Distribution A Class Lineman: Dima Travis M.D. Ph.D.; CLIA# [id number] Blood specimen (specimen) 09/24/2019 8:35 AM CDT 09/24/2019 9:45 AM CDT Carolina Delarosa MD LAB BLOOD ORDERABLES Final Result [facility] BJW[facility] [address] [facility] [place] [address] * Lupus Anticoagulant Panel plus Reflexes (09/24/2019 8:35 AM CDT) Pathologist [facility] PT 10.4 8.6 - 13.0 sec ARPITA ROSADO Comment:Testing performed by : [facility], [address] [facility], [place]., [address] INR 1.0 0.8 - 1.2 CERNER BJW[facility] Comment: Interpretive data Oral anticoagulant therapeutic ranges: Venous thromboembolism prophylaxis or treatment: 2.0-3.0 CARDIOLOGY Standard range: 2.0-3.0 High-intensity range: 2.5-3.5 Refer to indication-specific guidelines for appropriate target ranges for prosthetic heart valve replacement. Current interpretive data was last revised on 2019. Testing performed by: [facility], [address] [place]., [address] aPTT 28 25 - 37 sec CERNER [facility] Comment: Interpretive data Heparin therapeutic range: 60-90 seconds Range based on correlation with therapeutic heparin activity range of 0.3-0.7 units/ml. Current interpretive data was last revised on 2019. Testing performed by: [facility], [address] [facility], [address] DRVVT screen ratio 1.07 0.00 - 1.20 Ratio CERNER [facility] Comment:Testing performed by : [facility], [address] [place]., [address] SCT Screen Ratio 0.84 0.00 - 1.16 Ratio CERNER [facility] Comment:Testing performed by : [facility], [address] [place]., [address] Lupus anticoagulant, interp Negative CERNER [facility] Comment: Interpretive data ?? Lupus anticoagulants (LA) are acquired autoantibodies that interfere with invitro clotting in a phospholipid-dependent manner and are associated with an increased risk of thromboembolic events and complications. ?? Routine APTT and PT reagents are not sensitive to inhibition by LA, and should not be used as screening tests. ? The laboratory follows ISTH 2009 guidelines (Pengo, 2009) for LA testing and interpretation: Two sensitive methods performed in parallel improve sensitivity. One activates the intrinsic pathway (Silica-APTT) and one activates the common pathway (dilute Josh's viper venom time - dRVVT). ?? Each method begins with a SCREEN step, and if neither is prolonged, no further testing is performed and the interpretation is: NO LA DETECTED. ?? If either screening test is prolonged, then additional steps are performed to provide specificity. A POSITIVE LA result occurs if either one or both tests produce a positive CONFIRM result. ?? An INDETERMINATE result means results cannot distinguish between coagulopathy and a weak LA. Consider retesting when PT/INR is less prolonged, if clinical indicated. ?? To support laboratory confirmation of antiphospholipid syndrome, persistence of a positive LA result should be verified by repeat testing at least 12 weeks later (Cuong, 2006). ?? Prior to LA testing, the laboratory screens patient plasma samples for evidence of heparin contamination, which is neutralized prior to LA testing, and the following interfering conditions which require canceling LA testing: INR >3.0, fibrinogen < 100 mg/dl, use of direct oral or IV anticoagulants other than heparin. ?? References: 1) Almas V, Jerrica A, Beverly JH, Ormahsa TL, Marina M, De Sandeep PG. Update of the guidelines for lupus anticoagulant detection. J Thromb Haemost. 2009; 7:5682-0589. 2. Cuong Carey. et al. International consensus statement on an update of the classification criteria for definite antiphospholipid syndrome (APS). J Thromb Haemost. 2006; 4:295-306. Current interpretive data was last revised on 2018 Testing performed by: [facility], [address] [place]., [address] Blood specimen (specimen) 09/24/2019 8:35 AM CDT 09/24/2019 3:41 PM CDT Carolina Delarosa MD LAB BLOOD ORDERABLES Final Result ARPITA [facility] [address] [facility] Department of [employer] [place], [place] [id number] documented in this encounter Visit Diagnoses Diagnosis Lupus Systemic lupus erythematosus documented in this encounter Additional Health Concerns Infection Onset Date Last Indicated Resolved Time Exposure, COVID-19 Comment:Added automatically based on COVID19 lab answers indicating exposure risk 09/11/2019 09/11/2019 09/26/2019 3:05 AM C DT documented as of this encounter Care Teams Retarder Operator Relationship Specialty [place] [address] [address] [address] PCP - General 07/04/19 [place] [address] [address] [address] 11/16/18 documented as of this encounter
--- OUTSIDE RECORDS SUMMARY | 2024-02-24 20:14 | XMS_ITS | Encounter Summary ---
Author Organization [facility] Address [address] [place] [address] Phone Care Team Providers Care Riding Double Name Role Phone Huseyin Dangelo MD Unavailable [phone] Brian Mon MD Primary Care Provider + Encounter Details Date Type Department Care Team (Late st Contact Info) Description 09/17/2019 Documentation [facility] Rheumatology [address] [facility] Advanced Medicine 5th [place] [address] [place] [address] Tadeo Liriano MD [address] [place] [address] Social History Tobacco Use Types [...] Progress Notes * Tadeo Liriano MD - 09/17/2019 5:15 PM CDT Entered in error documented in this encounter Plan of Treatment Not on file documented as of this encounter Visit Diagnoses Not on filedocumented in this encounter Additional Health Concerns Infection Onset Date Last Indicated Resolved Time Exposure, COVID-19 Comment:Added automatically based on COVID19 lab answers indicating exposure risk 09/11/2019 09/11/2019 09/26/2019 3:05 AM C DT documented as of this encounter Care Teams Riding Double Relationship Specialty [place] [address] [address] [facility] [address] [place] [address] PCP - General 07/04/19 [place] [address] [address] [facility] [address] [place] [address] 11/16/18 documented as of this encounter
--- OUTSIDE RECORDS SUMMARY | 2024-02-24 20:14 | XMS_ITS | Encounter Summary ---
Author Organization [facility] Address [address] [facility] [address] [place] [address] Care Team Providers Care Site Medical Director Name Role Phone Huseyin Dangelo MD Unavailable [phone] Brian Mon MD Primary Care Provider + Encounter Details Date Type Department Care Team (Late st Contact Info) Description 08/01/2019 Telephone [facility] Gastroenterology at [address] [place] [address] Migdalia Bruno MA Social History [...] Encounter - Migdalia Bruno MA - 08/01/2019 9:19 AM CDT Pt called in this morning wanting to schedule an office visit today. A phone note was sent to Dr. Denis this morning via [employer]. Pt is scheduled with you this morning at 11:30 am. Pt c/o abd pain, vomiting and sores in her mouth. She is wanting to know the results as well. Pt is wanting a callback to see if she needs to come in today. I left her on the schedule, please advise. Pt is scheduled for a one week follow up after EGD and Colonoscopy with you on Sunday08/05/2019. Call back number is [phone]. documented in this encounter Plan of Treatment Not on file documented as of this encounter Visit Diagnoses Not on filedocumented in this encounter Care Teams Site Medical Director Relationship Specialty [place] [address] [address] [place] [address] PCP - General 07/04/19 [place] [address] [address] [place] [address] 11/16/18 documented as of this encounter
--- OUTSIDE RECORDS SUMMARY | 2024-02-24 20:14 | XMS_ITS | Encounter Summary ---
Author Organization [facility] [employer] [facility] Address [address] [place] [address] Phone Care Team Providers Care Tire Service Technician Name Role Phone Huseyin Dangelo MD Unavailable [phone] Brian Mon MD Primary Care Provider + Encounter Details Date Type Department Care Team (Late st Contact Info) Description 07/23/2019 Telephone [facility] Rheumatology [address] [facility] Advanced Medicine 5th [place] [address] [place] [address] Carolina Delarosa MD [address] [facility] [address] [place] [address] Social History Tobacco Use Types [...] Refills Last Filled Start Date End Date belimumab (Benlysta) auto-injector Inject 1 mL (200 mg total) under the skin every 7 days 4 Syringe 3 07/23/2019 09/15/2020 documented in this encounter Miscellaneous Notes * Telephone Encounter - Carolina Delarosa MD - 07/23/2019 2:13 PM CDT Benlysta prescribed documented in this encounter Plan of Treatment Not on file documented as of this encounter Visit Diagnoses Not on filedocumented in this encounter Care Teams Tire Service Technician Relationship Specialty [place] [address] [address] [facility] [address] [place] [address] PCP - General 07/04/19 [place] [address] [address] [place] [address] [place] [address] 11/16/18 documented as of this encounter
--- OUTSIDE RECORDS SUMMARY | 2024-02-24 20:14 | XMS_ITS | Encounter Summary ---
Author Organization [facility] [employer] [facility] Address [address] [place] [address] Phone Care Team Providers Care Patching Machine Operator Name Role Phone Huseyin Dangelo MD Unavailable [phone] Brian Mon MD Primary Care Provider + Reason for Visit * Reason Onset Date Comments Prior Auth 09/15/2019 Encounter Details Date Type Department Care Team (Late st Contact Info) Description 09/15/2019 Telephone [facility] Rheumatology [address] [facility] [address] [place] [address] Nallely Griffiths CMA Prior Auth Social History Tobacco Use Types Packs/Day [...] Telephone Encounter - Nallely Griffiths CMA - 09/15/2019 8:19 AM CDT Pt need PA for Benlysta infusion. Pt has new insurance that stated this month. Images of her insurance cards are in media documented in this encounter Plan of Treatment Not on file documented as of this encounter Visit Diagnoses Not on filedocumented in this encounter Additional Health Concerns Infection Onset Date Last Indicated Resolved Time Exposure, COVID-19 Comment:Added automatically based on COVID19 lab answers indicating exposure risk 09/11/2019 09/11/2019 09/26/2019 3:05 AM C DT documented as of this encounter Care Teams Patching Machine Operator Relationship Specialty [place] [address] [address] [place] [address] PCP - General 07/04/19 [place] [address] [address] [place] [address] 11/16/18 documented as of this encounter
--- OUTSIDE RECORDS SUMMARY | 2024-02-24 20:14 | XMS_ITS | Encounter Summary ---
Author Organization [facility] Healthcare Address [address] [place] [address] Care Team Providers Care Line Installer Repairer Name Role Phone Huseyin Dangelo MD Unavailable [phone] Brian Mon MD Primary Care Provider + Encounter Details Date Type Department Care Team (Late st Contact Info) Description 08/05/2019 Patient Self-Triage [facility] [address] [place] [address] Mychart, Generic Provider [address] [place], [place] [address] Social History Tobacco Use Types Packs/Day Years [...] filedocumented in this encounter Care Teams Line Installer Repairer Relationship Specialty [place] [address] [facility] [address], [place] [address] PCP - General 07/04/19 [place] [address] [address] 11/16/18 documented as of this encounter
--- OUTSIDE RECORDS SUMMARY | 2024-02-24 20:14 | XMS_ITS | Encounter Summary ---
Author Organization [facility] Address [address] [place] [address] Care Team Providers Care Personnel Research Scientist Name Role Phone Huseyin Dangelo MD Unavailable [phone] Brian Mon MD Primary Care Provider + Encounter Details Date Type Department Care Team (Late st Contact Info) Description 08/01/2019 4:15 PM CDT Telemedicine [facility]/ Physicians [address] [place] [address] Aida Urban, APICULTURE TEACHER [address] [address] Sore throat (Primary Dx); Fever, unspecified fever cause; Shortness of breath; Cough Social History Tobacco Use Types Packs/Day [...] this encounter Patient Instructions * Patient Instructions* Aida Urban NP - 08/01/2019 4:15 PM CDT Images from the original note were not included. Patient Education General Allergic Reaction SQL DATABASE PROGRAMMER: An allergic reaction is your body's response to an allergen. Allergens include medicines, food, insect stings, animal dander, mold, latex, chemicals, and dust mites. Pollen from trees, grass, and weeds can also cause an allergic reaction. An allergic reaction can range from mild to severe. Common signs and symptoms: ?? Sneezing and a runny, itchy, or stuffy nose ?? Swollen, watery, or itchy eyes ?? Mild or severe skin itching or swelling ?? Swelling or pain where an insect bit or stung you ?? Trouble breathing or swallowing, a cough, or wheezing ?? A rash or hives ?? Feeling lightheaded or dizzy Call 911 for signs or symptoms of anaphylaxis, such as trouble breathing, swelling in your mouth orthroat, or wheezing. You may also have itching, a rash, hives, or feel like you are going to faint. Seek care immediately if: ?? You have a skin rash, hives, swelling, or itching that is starting to get worse. ?? Your throat tightens, or your lips or tongue swell. ?? You have trouble swallowing or speaking. ?? You have worsening nausea, diarrhea, or abdominal cramps, or you are vomiting. ?? You have chest pain or tightness. Contact your healthcare provider if: ?? You have questions or concerns about your condition or care. Treatment for a general allergic reaction may include medicines to relieve certain allergy symptomssuch as itching, sneezing, and swelling. You may take them as a pill or use drops in your nose or eyes. Topical treatments may be given to put directly on your skin to help decrease itching or swelling. Epinephrine may be prescribed if you are at risk for anaphylaxis. This is a severe allergic reaction that can be life-threatening. Your healthcare provider will tell you if you need to keep epinephrine with you. You will be taught when and how to use it. Manage your symptoms: ?? Avoid allergens. You may need to have allergy testing with your healthcare provider or a specialist to find your allergens. ?? Use cold compresses on your skin or eyes. This will help soothe skin or eyes affected by the allergic reaction. You can make a cold compress by soaking a washcloth in cool water. Wring out the extra water before you apply the washcloth. ?? Rinse your nasal passages with a saline solution. Daily rinsing may help clear allergens out of your nose. Use distilled water if possible. You can also boil tap water and then let it cool before you use it. Do not use tap water without boiling it first. ?? Do not smoke. Nicotine and other chemicals in cigarettes and cigars can make an allergic reaction worse, and can also cause lung damage. Ask your healthcare provider for information if you currently smoke and need help to quit. E- cigarettes or smokeless tobacco still contain nicotine. Talk to your healthcare provider before you use these products. Follow up with your healthcare provider as directed: Write down your questions so you remember to ask them during your visits. ?? 2017 [employer] Information is for End User's use only and may not be sold, redistributed or otherwise used for commercial purposes. All illustrations and images included in CareNotes?? are the copyrighted property of [employer]. or [employer]. The above information is an utility aide only. It is not intended as medical advice for individual conditions or treatments. Talk to your doctor, nurse or pharmacist before following any medical regimen to see if it is safe and effective for you. Patient Education Pharyngitis SQL DATABASE PROGRAMMER: Pharyngitis , or sore throat, is inflammation of the tissues and structures in your pharynx (throat). Pharyngitis is most often caused by bacteria. It may also be caused by a cold or flu virus. Othercauses include smoking, allergies, or acid reflux. Signs and symptoms that may occur with pharyngitis: ?? Sore throat or pain when you swallow ?? Fever, chills, and body aches ?? Hoarse or raspy voice ?? Cough, runny or stuffy nose, itchy or watery eyes ?? Headache ?? Upset stomach and loss of appetite ?? Mild neck stiffness ?? Swollen glands that feel like hard lumps when you touch your neck ?? White and yellow pus-filled blisters in the back of your throat Call 911 for any of the following: ?? You have trouble breathing or swallowing because your throat is swollen or sore. Seek care immediately if: ?? You are drooling because it hurts too much to swallow. ?? Your fever is higher than 102?F (39?C) or lasts longer than 3 days. ?? You are confused. ?? You taste blood in your throat. Contact your healthcare provider if: ?? Your throat pain gets worse. ?? You have a painful lump in your throat that does not go away after 5 days. ?? Your symptoms do not improve after 5 days. ?? You have questions or concerns about your condition or care. Treatment for pharyngitis: Viral pharyngitis will go away on its own without treatment. Your sore throat should start to feel better in 3 to 5 days for both viral and bacterial infections. You may need any of the following: ?? Antibiotics treat a bacterial infection. ?? NSAIDs , such as ibuprofen, help decrease swelling, pain, and fever. NSAIDs can cause stomach bleeding or kidney problems in certain people. If you take blood thinner medicine, always ask your healthcare provider if NSAIDs are safe for you. Always read the medicine label and follow directions. ?? Acetaminophen decreases pain and fever. It is available without a doctor's order. Ask how much to take and how often to take it. Follow directions. Acetaminophen can cause liver damage if not taken correctly. Manage your symptoms: ?? Gargle salt water. Mix ?? teaspoon salt in an 8 ounce glass of warm water and gargle. This may help decrease swelling in your throat. ?? Drink liquids as directed. You may need to drink more liquids than usual. Liquids may help soothe your throat and prevent dehydration. Ask how much liquid to drink each day and which liquids are best for you. ?? Use a cool-steam humidifier to help moisten the air in your room and calm your cough. ?? Soothe your throat with cough drops, ice, soft foods, or popsicles. Prevent the spread of pharyngitis: Cover your mouth and nose when you cough or sneeze. Do not sharefood or drinks. Wash your hands often. Use soap and water. If soap and water are unavailable, use an alcohol based hand energy conservation specialist. Follow up with your healthcare provider as directed: Write down your questions so you remember to ask them during your visits. ?? 2017 [employer] Information is for End User's use only and may not be sold, redistributed or otherwise used for commercial purposes. All illustrations and images included in CareNotes?? are the copyrighted property of [employer]. or [employer]. The above information is an utility aide only. It is not intended as medical advice for individual conditions or treatments. Talk to your doctor, nurse or pharmacist before following any medical regimen to see if it is safe and effective for you. Patient Education Shortness of Breath SQL DATABASE PROGRAMMER: Shortness of breath is a feeling that you cannot get enough air when you breathe in. You may have this feeling only during activity, or all the time. Your symptoms can range from mild to severe. Shortness of breath may be a sign of a serious health condition that needs immediate care. Seek care immediately if: ?? Your signs and symptoms are the same or worse within 24 hours of treatment. ?? The skin over your ribs or on your neck sinks in when you breathe. ?? You feel confused or dizzy. Contact your healthcare provider if: ?? You have new or worsening symptoms. ?? You have questions or concerns about your condition or care. Treatment: ?? Medicines may be used to treat the cause of your symptoms. You may need medicine to treat a bacterial infection or reduce anxiety. Other medicines may be used to open your airway, reduce swelling,or remove extra fluid. If you have a heart condition, you may need medicine to help your heart beatmore strongly or regularly. ?? Oxygen may be given to help you breathe more easily. Manage shortness of breath: ?? Create an [...] ask them during your visits. ?? 2017 [employer] Information is for End User's use only and may not be sold, redistributed or otherwise used for commercial purposes. All illustrations and images included in CareNotes?? are the copyrighted property of [employer]. or [employer]. The above information is an utility aide only. It is not intended as medical advice for individual conditions or treatments. Talk to your doctor, nurse or pharmacist before following any medical regimen to see if it is safe and effective for you. documented in this encounter Progress Notes * Aida Urban NP - 08/01/2019 4:15 PM CDT [facility] Virtual Care Screening Evaluation for COVID-19 This was a telemedicine visit with Carito anglin which took place via Telephone. During the visit, I was located in the office and the patient was located at home. The patient visit started at 4:06pm and ended at 4:20pm. Total encounter time was 25 minutes, which includes time spent today on [...] billed and/or responsible for any applicable copayments. Assessment and Recommendations: Patient was found to be Symptomatic with high risk conditions COVID testing indicated No Patient was tested 07/27/2019 and was negative Diagnosis and Orders: (J02.9) Sore throat (primary encounter diagnosis) (R50.9) Fever, unspecified fever cause Comment: May use tylenol for fever and aches. Drink lots of fluids. Get plenty of rest (R06.02) Shortness of breath (R05) Cough Comment: May use OTC cough medicine for cough Additional guidance or treatments: Advised patient to go to call 911 and go to ER for reports of feeling like I'm drowning and my throat closing of, itchy feeling, and face flushedf . Patient instructions were included in the After Visit Summary sent to the patient's [employer] account. Focused HPI: The patient-submitted questionnaire was assessed for pertinent information and the patient's problem list, medication list, and allergies were reviewed as part of the virtual care visit. The chart was updated to identify any changes in these areas. No flowsheet data found. Symptoms: Patient reports shortness of breath, cough, sore throat, fever, and fatigue. Reports had EGD 07/29/2019 and has felt bad since. Reports that last night she called EMS to evaluate her for feeling like can't breath. Reports EMS didn't find anything abnormal in vital signs and assessment. Wentto Urgent Care today for sore throat and temp of 100.6. Was swabbed for strep and negative. They told her to call GI. Reports spoke with GI today after going to Urgent Care for sore throat. Reports GI told her the EGD was ok and didn't find anything. She states she is itchy feeling and her facet isflushed. Reports I feel like I'm drowning and I can't get enough air. It feels like I have fluid in my chest. Duration: ongoing since Sunday Exposure risk (travel or close contact): unknown exposure Review of Systems: Fever: Yes New Rhinorrhea or nasal congestion: No New Sore Throat:Yes New Muscle Aches: No New sudden loss of taste or smell: Yes New Cough: Yes New Shortness of Breath: Yes New Diarrhea: Yes Other: fatigue Focused physical exam: General appearance: In obvious distress N/A Neuro: Alert Yes Respiratory Distress: No audible sound of distress; able to speak full sentences. documented in this encounter Plan of Treatment Not on file documented as of this encounter Visit Diagnoses Diagnosis Sore throat- Primary Acute pharyngitis Fever, unspecified fever cause Shortness of breath Cough documented in this encounter Care Teams Personnel Research Scientist Relationship Specialty [place] [id number] [address] [address] PCP - General 07/04/19 [place] [address] [address] [address] 11/16/18 documented as of this encounter
--- OUTSIDE RECORDS SUMMARY | 2024-02-24 20:14 | XMS_ITS | Encounter Summary ---
Author Organization [facility] Address [address] [place] [address] Care Team Providers Care Mold Dumper Name Role Phone Huseyin Dangelo MD Unavailable Brian Mon MD Primary Care Provider + Encounter Details Date Type Department Care Team (Late st Contact Info) Description 08/01/2019 Patient Self-Triage [facility] Phys[facility] [address] [place] [address] Mychart, Generic Provider [address] [place], [place] [id number] Social History Tobacco Use Types Packs/Day Years [...] on filedocumented in this encounter Care Teams Mold Dumper Relationship Specialty [place] [address] [facility] [address], [place] [address] PCP - General 07/04/19 [place] [address] [address] 11/16/18 documented as of this encounter
--- OUTSIDE RECORDS SUMMARY | 2024-02-24 20:14 | XMS_ITS | Encounter Summary ---
Author Organization [facility] Healthcare Address [address] [place] [address] Care Team Providers Care Portrait Studio Photographer Name Role Phone Huseyin Dangelo MD Unavailable [phone] Brian Mon MD Primary Care Provider + Encounter Details Date Type Department Care Team (Latest Contact Info) Description 07/29/2019 12:10 PM CDT - 07/29/2019 12:50 PM CDT Surgery [facility] Digestive [facility] [address] [place] [id number] Dang Denis MD [address] [place] [id number] Esophagogastroduodenoscopy Biopsy Surgery Details Date/Time Status Location OR Service Patient Class Case Class Case Type Trauma Case? 07/29/2019 12:10 PM Posted [facility] ENDOSCOPY GI 01 Gastroenterology Outpatient Elective Panel 1 Procedure LRB Anes Op Region Wound Class Comments Esophagogastroduodenoscopy Biopsy N/A Choice Colon Biopsy N/A Choice Surgeon Surgeon Role Service Panel Dang Denis MD Primary Gastroenterology 1 documented in this encounter Social History Tobacco [...] Sign Reading Time Taken Comments Blood Pressure 120/70 07/29/2019 12:50 PM CDT Pulse 75 07/29/2019 12:50 PM CDT Temperature 36.8 ??C (98.2 ??F) 07/29/2019 10:42 AM C DT Respiratory Rate 18 07/29/2019 12:50 PM CDT Oxygen Saturation 100% 07/29/2019 12:50 PM CDT Inhaled Oxygen Concentration - - Weight 73.5 kg (162 lb) 07/29/2019 10:42 AM CDT Height 160 cm (5' 3 ) 07/29/2019 10:42 AM CDT Body Mass Index 28.7 07/29/2019 10:42 AM CDT documented in this encounter Medications at Time of Discharge diclofenac sodium (VOLTAREN) 1 % gelIndications:O steoarthritis Apply 2 g topically 3 (three) times a day Apply to arthritis joints PRN 2 Tube 2 07/18/2019 0 albuterol (PROAIR RESPICLICK) 90 mcg/actuation inhalerIndicatio ns:Acute Asthma Attack Inhale 2 puffs every 6 (six) hours as needed for wheezing 0 ALPRAZolam (XANAX) 0.25 mg tablet Take 0.25 mg by mouth 3 (three) times a day as needed 1 belimumab (Benlysta) auto-injector Inject 1 mL (200 mg total) under the skin every 7 days 4 Syringe 3 07/23/2019 1 ergocalciferol (VITAMIN D) 50,000 unit capsule TAKE 1 CAPSULE BY MOUTH ONE TIME PER WEEK 06/21/2019 1 escitalopram (LEXAPRO) 10 mg tablet Take 10 mg by mouth daily 07/11/2019 0 hydroxychloroqui ne (PLAQUENIL) 200 mg tablet Take 100 mg by mouth nightly 0 ketorolac (TORADOL) 10 mg tablet Take 10 mg by mouth every 6 (six) hours as needed for pain 0 metoclopramide (REGLAN) 10 mg tablet Take 1 tablet (10 mg total) by mouth every 8 (eight) hours as needed (Nausea) 15 tablet 07/21/2019 0 omeprazole (PriLOSEC) 20 mg capsule Take 20 mg by mouth daily 06/21/2019 1 predniSONE (DELTASONE) 1 mg tablet Take 1 mg by mouth daily 0 predniSONE (DELTASONE) 10 mg tablet Take 12.5 mg by mouth daily 0 traZODone (DESYREL) 150 mg tabletIndication s:takes on 75mg Take 150 mg by mouth nightly 0 documented as of this encounter Discharge Disposition Disposition Code Departure Means Destination Discharge to home or self care documented in this encounter H&P Notes * Dang Denis MD - 07/29/2019 12:30 PM CDT History and Physical Date of visit: 07/29/2019 Subjective: Patient is a 29 y.o. female presented for evaluation for abdominal pain, diarrhea, dyspepsia.. Past Medical History: Diagnosis Date ??? Anemia [...] median nerve repair, allograft nerve wrap application Medications Prior to Admission Medication Sig Dispense Refill Last Dose ??? ALPRAZolam (XANAX) 0.25 mg tablet Take 0.25 mg by mouth 3 (three) times a day as needed 07/28/2019 at Unknown time ??? diclofenac sodium (VOLTAREN) 1 % gel Apply 2 g topically 3 (three) times a day Apply to arthritis joints PRN 2 Tube 2 Past Week at Unknown time ??? ergocalciferol (VITAMIN D) 50,000 unit capsule TAKE 1 CAPSULE BY MOUTH ONE TIME PER WEEK Past Week at Unknown time ??? escitalopram (LEXAPRO) 10 mg tablet Take 10 mg by mouth daily 07/28/2019 at Unknown time ??? hydroxychloroquine (PLAQUENIL) 200 mg tablet Take 100 mg by mouth nightly Past Week at Unknown time ??? ketorolac (TORADOL) 10 mg tablet Take 10 mg by mouth every 6 (six) hours as needed for pain Past Week at Unknown time ??? omeprazole (PriLOSEC) 20 mg capsule Take 20 mg by mouth daily 07/29/2019 at Unknown time ??? predniSONE (DELTASONE) 10 mg tablet Take 10 mg by mouth daily 07/29/2019 at Unknown time ??? predniSONE (DELTASONE) 5 mg tablet Take 5 mg by mouth daily 07/28/2019 at Unknown time ??? traZODone (DESYREL) 150 mg tablet Take 150 mg by mouth nightly Past Week at Unknown time ??? albuterol (PROAIR RESPICLICK) 90 mcg/actuation inhaler Inhale 2 puffs every 6 (six) hours as needed for wheezing Not Taking ??? belimumab (Benlysta) auto-injector Inject 1 mL (200 mg total) under the skin every 7 days 4 Syringe 3 ??? metoclopramide (REGLAN) 10 mg tablet Take 1 tablet (10 mg total) by mouth every 8 (eight) hoursas needed (Nausea) 15 tablet 0 ??? predniSONE (DELTASONE) 1 mg tablet Please take 2 tablets at night for 2 weeks and then 1 tabletat night for 2 weeks and stop 50 tablet 0 Taking ??? [] promethazine (PHENERGAN) 12.5 mg tablet Take 1 tablet (12.5 mg total) by mouth every 6 (six) hours as needed for nausea or vomiting for up to 7 days 30 tablet 0 Allergies Allergen Reactions ??? Methylprednisolone Anaphylaxis and Syncope Syncope ??? Venlafaxine Itching Social History Tobacco Use ??? Smoking status: Former Smoker Last attempt to quit: 12/28/2018 Years since quittin.5 ??? Smokeless tobacco: Never Used Substance Use Topics ??? Alcohol use: Yes Comment: occasionally Family History Problem Relation Age of Onset ??? Gout Mother ??? Heart disease Father ??? Stroke Father ??? Colon cancer Other Physical Exam: Patient is awake and answers well. Eyes: no jaundice. Lungs: CTA anteriorly. ENT: no mouth ulcers. Abdomen: soft, no distention, no tenderness, bowel sounds positive. Extremities: no edema. Skin: no rash. GI IMPRESSION: 1. Chronic diarrhea. 2. Chronic abdominal pain GI PLAN/RECOMMENDATIONS: 1. EGD and colonoscopy Dang Denis MD documented in this encounter Procedure Notes * Dang Denis MD - 07/29/2019 12:08 PM CDTAssociated Order(s): EGD [facility] [[email or web address] Patient Name: Carito Rausch Procedure Date: 07/29/2019 12:08 PM Date of : 1990 Admit Type: Outpatient Age: 29 Gender: Female Attending MD: Dang Denis M.D. Room: [facility] ENDOSCOPY ROOM 1 Note Status: Finalized Patient Profile: This is a 29 year old female. Patient had multiple chronic GI complaint including abdominal pain, dyspepsia and diarrhea. Procedure: Upper GI endoscopy Indications: Generalized abdominal pain, Functional Dyspepsia Referring MD: Kenny Lo, Brian Mon M.D. Providers: Dang Denis M.D. Impression: - Normal examined duodenum. - Normal stomach. Biopsied. - Normal esophagus. Recommendation: - Continue present medications. - Return to GI office as previously scheduled. - Consider functional symptoms and life style changes. Medicines: Monitored Anesthesia Care Complications: No immediate complications. Estimated Blood Loss: Estimated blood loss: none. Procedure: Pre-Anesthesia Assessment: - Prior to the procedure, a History and Physical was performed, and patient medications and allergies were reviewed. The patient's tolerance of previous anesthesia was also reviewed. The risks and benefits of the procedure and the sedation options and risks were discussed with the patient. All questions were answered, and informed consent was obtained. Prior Anticoagulants: The patient has taken no previous anticoagulant or antiplatelet agents. ASA Grade Assessment: II - A patient with mild systemic disease. After reviewing the risks and benefits, the patient was deemed in satisfactory condition to undergo the procedure. The benefits, risks, and alternatives to the procedure and sedation were discussed and informed consent was obtained. The scope was passed under direct vision. The Endoscope GIF-H190 [id number] was introduced through the mouth, and advanced to the second part of duodenum. The upper GI endoscopy was accomplished without difficulty. The patient tolerated the procedure well. Findings: The examined duodenum was normal. Mucosal pattern was normal The entire examined stomach was normal. Biopsies were taken with a cold forceps for Helicobacter pylori testing using CLOtest. Retroflexion of the stomach in the gastric fundus and cardia were normal. The examined esophagus was normal. The GE junction was normal per Electronically signed by Dang Denis M.D. Dang Denis M.D. 07/29/2019 12:41:25 PM Number of Addenda: 0 Note Initiated On: 07/29/2019 12:08 PM Procedure Code(s): --- Professional --- 16228, Esophagogastroduodenoscopy, flexible, transoral; with biopsy, single or multiple Diagnosis Code(s): --- Professional --- R10.84, Generalized abdominal pain K30, Functional dyspepsia CPT copyright 2017 [employer]. All rights reserved. The codes documented in this report are preliminary and upon cad librarian review may be revised to meet current compliance requirements. Recognized by the [place] [employer] for promoting quality in endoscopy * Dang Denis MD - 07/29/2019 12:05 PM CDTAssociated Order(s): COLONOSCOPY [facility] [[email or web address]] Patient Name: Carito Rausch Procedure Date: 07/29/2019 12:05 PM Date of : 1990 Admit Type: Outpatient Age: 29 Gender: Female Attending MD: Dang Denis M.D. Room: [facility] ENDOSCOPY ROOM 1 Note Status: Finalized Patient Profile: This is a 29 year old female. Patient has chronic diarrhea and chronic abdominal pain symptoms. Procedure: Colonoscopy Indications: This is the patient's first colonoscopy, Generalized abdominal pain, Chronic diarrhea Referring MD: Kenny Lo, Brian Mon M.D. Providers: Dang Denis M.D. Impression: - The entire examined colon is normal. Biopsied. - The rectum is normal. Recommendation: - Discharge patient to home. - Await pathology results. - Continue present medications. - Repeat colonoscopy at age 47 for screening purposes. Medicines: Monitored Anesthesia Care Complications: No immediate complications. Estimated Blood Loss: Estimated blood loss: none. Procedure: Pre-Anesthesia Assessment: - Prior to the procedure, a History and Physical was performed, and patient medications and allergies were reviewed. The patient's tolerance of previous anesthesia was also reviewed. The risks and benefits of the procedure and the sedation options and risks were discussed with the patient. All questions were answered, and informed consent was obtained. Prior Anticoagulants: The patient has taken no previous anticoagulant or antiplatelet agents. ASA Grade Assessment: II - A patient with mild systemic disease. After reviewing the risks and benefits, the patient was deemed in satisfactory condition to undergo the procedure. The benefits, risks and alternatives of the procedure and sedation were discussed and informed consent was obtained. All questions were answered. Please refer to the signed informed consent document in the medical record. The scope was passed under direct vision. The Pediatric Colonoscope PCF-H190L [id number] was introduced through the anus and advanced to the the cecum, identified by appendiceal orifice and ileocecal valve. Bowel prep was administered using a split dose. The bowel preparation used was Miralax. The bowel preparation used was bisacodyl tablets. The quality of the bowel preparation was excellent. Findings: The perianal and digital rectal examinations were normal. The ileum appeared normal. The cecum appeared normal. The colon (entire examined portion) appeared normal. Biopsies for histology were taken with a cold forceps from the entire colon for evaluation of microscopic colitis. The rectum appeared normal. Electronically signed by Dang Denis M.D. Dang Denis M.D. 07/29/2019 12:43:40 PM Number of Addenda: 0 Note Initiated On: 07/29/2019 12:05 PM Procedure Code(s): --- Professional --- 13733, Colonoscopy, flexible; with biopsy, single or multiple Diagnosis Code(s): --- Professional --- R10.84, Generalized abdominal pain K52.9, Noninfective gastroenteritis and colitis, unspecified CPT copyright 2017 [employer]. All rights reserved. The codes documented in this report are preliminary and upon cad librarian review may be revised to meet current compliance requirements. Recognized by the [place] [employer] for promoting quality in endoscopy documented in this encounter Plan of Treatment Not on file documented as of this encounter Procedures Procedure Name Priority Date/Time Associated Diagnosis Comments SURGICAL PATHOLOGY STAT 07/29/2019 4:13 PM CDT Nausea and vomiting, intractability of vomiting not specified, unspecified vomiting type Epigastric pain Gastroesophageal reflux disease, esophagitis presence not specified Diarrhea, unspecified type Abdominal pain, unspecified abdominal location H. PYLORI UREASE SCREEN (LIZANDRO TEST) STAT 07/29/2019 12:17 PM CDT EGD 07/29/2019 12:08 PM CDT COLONOSCOPY 07/29/2019 12:05 PM CDT COLON BIOPSY 07/29/2019 12:02 PM CDT Nausea and vomiting, intractability of vomiting not specified, unspecified vomiting type Epigastric pain Gastroesophageal reflux disease, esophagitis presence not specified Diarrhea, unspecified type Abdominal pain, unspecified abdominal location ESOPHAGOGASTRODUODENOSCOPY BIOPSY 07/29/2019 12:02 PM CDT Nausea and vomiting, intractability of vomiting not specified, unspecified vomiting type Epigastric pain Gastroesophageal reflux disease, esophagitis presence not specified Diarrhea, unspecified type Abdominal pain, unspecified abdominal location POCT HCG, URINE Routine 07/29/2019 11:02 AM CDT documented in this encounter Results * Surgical pathology (07/29/2019 4:13 PM CDT) Tissue (Colon, Biopsy) 07/29/2019 12:25 PM CDT Narrative PATHOLOGY [facility] ([facility]) - 07/30/2019 12:15 PM CDT [facility] results best viewed via link to PDF [facility] Department of Pathology [address] [place] [address] Final Report Patient Name: ??CARITO RAUSCH Address: ??[address] [place] [address], ??[place], [place] ??[facility] Gender: ??F : ??1990 (Age: 29) Service: ??Gastro Location: ??[facility] #: ??[id number] Patient Type: ??[facility] Accession # ?[id number] Taken: ??07/29/2019 Received: ??07/29/2019 Accessioned: ??07/29/2019 Reported: ??07/30/2019 Physician(s):Dr. Dang Denis M.D. Brian Mon M.D. Diagnosis: Colon, random biopsies: ? - No pathologic diagnosis Ade Reyes M.D. Report Electronically Reviewed and Signed Out By ??Ade Reyes M.D. ??07/30/2019 12:15:22 Specimen(s) Received: A: Random colon biopsies Microscopic Description: Microscopic examination of the colonic mucosal biopsies, all examined at multiple levels, reveals a benign pattern throughout. ??The biopsies all have a fairly similar microscopic appearance. ??None show any distortion of the mucosal and crypt architecture. In addition, the pattern and degree of inflammation are within normal limits. ??No abnormal thickening of the subsurface epithelial collagen layer is identified by routine light microscopy. Clinical History: Nausea and vomiting, epigastric pain, gastroesophageal reflux disease, diarrhea, abdominal pain. EGD, colonoscopy Gross Description: The specimen is submitted in a single container labeled Carito Rausch and random colon . ??It is multiple altamirano soft tissue fragments measuring 1-2 mm. ??All in one cassette. ??Madison Szymanski M.D./Florentino Mcclure, P.A. REPORT IMAGES AND SCANNED DOCUMENTS, IF INCLUDED, ONLY VIEWABLE IN PDF VERSION OF REPORT The performance characteristics of some immunohistochemical stains, fluorescence in-situ hybridization tests and immunophenotyping by flow cytometry cited in this report (if any) were determined by the Surgical Pathology Department at [facility] as part of an ongoing quality facilitator program and in compliance with federally mandated [...] characteristics determined by the Surgical Pathology Department [facility]. ??It has not been cleared or approved by the U. S. Food and Drug Administration. Dang Denis MD LAB PATHOLOGY ORDERABLES F inal Result PATHOLOGY [facility] ([facility] [address] [place] [address] * H. pylori urease screen (LIZANDRO test) Tissue (07/29/2019 12:17 PM CDT) H. pylori, rapid (LIZANDRO) Negative Negative [facility]ERN[facility] Tissue 07/29/2019 12:1 7 PM CDT 07/29/2019 2:57 PM CDT Dang Denis MD LAB MICROBIOLOGY - GENERAL ORDERABLES Final Result [facility] [address] [facility] Department [place] [address] * EGD (07/29/2019 12:08 PM CDT) Anatomical Region Laterality Modality Other Narrative Procedure Note Dang Denis MD - 07/29/2019 12:08 PM CDT [facility] Patient Name: Carito Rausch Procedure Date: 07/29/2019 12:08 PM Date of : 1990 Admit Type: Outpatient Age: 29 Gender: Female Attending MD: Dang Denis M.D. Room: [facility] ENDOSCOPY ROOM 1 Note Status: Finalized Patient Profile: This is a 29 year old female. Patient had multiple chronic GI complaint including abdominal pain, dyspepsia and diarrhea. Procedure: Upper GI endoscopy Indications: Generalized abdominal pain, Functional Dyspepsia Referring MD: Kenny Lo, Brian Mno M.D. Providers: Dang Denis M.D. Impression: - Normal examined duodenum. - Normal stomach. Biopsied. - Normal esophagus. Recommendation: - Continue present medications. - Return to GI office as previously scheduled. - Consider functional symptoms and life stylechanges. Medicines: Monitored Anesthesia Care Complications: No immediate complications. Estimated Blood Loss: Estimated blood loss: none. Procedure: Pre-Anesthesia Assessment: - Prior to the procedure, a History and Physical was performed, and patient medications and allergieswere reviewed. The patient's tolerance of previous anesthesia was also reviewed. The risks and benefitsof the procedure and the sedation options and riskswere discussed with the patient. All questions were answered, and informed consent was obtained. Prior Anticoagulants: The patient has taken no previous anticoagulant or antiplatelet agents. ASA Grade Assessment: II - A patient with mild systemicdisease. After reviewing the risks and benefits, the patientwas deemed in satisfactory condition to undergo the procedure. The benefits, risks, and alternatives to theprocedure and sedation were discussed and informed consent was obtained. The scope was passed under direct vision.The Endoscope GIF-H190 [id number] was introduced throughthe mouth, and advanced to the second part of duodenum.The upper GI endoscopy was accomplished withoutdifficulty. The patient tolerated the procedure well. Findings: The examined duodenum was normal. Mucosal pattern was normal The entire examined stomach was normal. Biopsies were taken with acold forceps for Helicobacter pylori testing using CLOtest. Retroflexionof the stomach in the gastric fundus and cardia were normal. The examined esophagus was normal. The GE junction was normal per Electronically signed by Dang Denis M.D. Dang Denis M.D. 07/29/2019 12:41:25 PM Number of Addenda: 0 Note Initiated On: 07/29/2019 12:08 PM Procedure Code(s): --- Professional --- 55435, Esophagogastroduodenoscopy, flexible, transoral; with biopsy, single or multiple Diagnosis Code(s): --- Professional --- R10.84, Generalized abdominal pain K30, Functional dyspepsia CPT copyright 2017 [employer]. All rights reserved. The codes documented in this report are preliminary and upon cad librarian reviewmay be revised to meet current compliance requirements. Recognized by the [place] [employer] for promoting quality in endoscopy Dang Denis MD ENDOSCOPY PROCEDURES Final Result * COLONOSCOPY (07/29/2019 12:05 PM CDT) Anatomical Region Laterality Modality Other Narrative Procedure Note Dang Denis MD - 07/29/2019 12:05 PM CDT [facility] [[email or web address] Patient Name: Carito Rausch Procedure Date: 07/29/2019 12:05 PM Date of : 1990 Admit Type: Outpatient Age: 29 Gender: Female Attending MD: Dang Denis M.D. Room: [facility] ENDOSCOPY ROOM 1 Note Status: Finalized Patient Profile: This is a 29 year old female. Patient has chronic diarrhea and chronic abdominal pain symptoms. Procedure: Colonoscopy Indications: This is the patient's first colonoscopy, Generalized abdominal pain, Chronic diarrhea Referring MD: Kenny Lo, Brian Mon M.D. Providers: Dang Denis M.D. Impression: - The entire examined colon is normal. Biopsied. - The rectum is normal. Recommendation: - Discharge patient to home. - Await pathology results. - Continue present medications. - Repeat colonoscopy at age 47 for screeningpurposes. Medicines: Monitored Anesthesia Care Complications: No immediate complications. Estimated Blood Loss: Estimated blood loss: none. Procedure: Pre-Anesthesia Assessment: - Prior to the procedure, a History and Physical was performed, and patient medications and allergieswere reviewed. The patient's tolerance of previous anesthesia was also reviewed. The risks and benefitsof the procedure and the sedation options and riskswere discussed with the patient. All questions were answered, and informed consent was obtained. Prior Anticoagulants: The patient has taken no previous anticoagulant or antiplatelet agents. ASA Grade Assessment: II - A patient with mild systemicdisease. After reviewing the risks and benefits, the patientwas deemed in satisfactory condition to undergo the procedure. The benefits, risks and alternatives of theprocedure and sedation were discussed and informed consent was obtained. All questions were answered. Please referto the signed informed consent document in the medical record. The scope was passed under direct vision.The Pediatric Colonoscope PCF-H190L [id number] was introduced through the anus and advanced to the the cecum, identified by appendiceal orifice andileocecal valve. Bowel prep was administered using a splitdose. The bowel preparation used was Miralax. The bowel preparation used was bisacodyl tablets. The qualityof the bowel preparation was excellent. Findings: The perianal and digital rectal examinations were normal. The ileum appeared normal. The cecum appeared normal. The colon (entire examined portion) appeared normal. Biopsies for histology were taken with a cold forceps from the entire colon for evaluation of microscopic colitis. The rectum appeared normal. Electronically signed by Dang Denis M.D. Dang Denis M.D. 07/29/2019 12:43:40 PM Number of Addenda: 0 Note Initiated On: 07/29/2019 12:05 PM Procedure Code(s): --- Professional --- 28727, Colonoscopy, flexible; with biopsy, single or multiple Diagnosis Code(s): --- Professional --- R10.84, Generalized abdominal pain K52.9, Noninfective gastroenteritis and colitis, unspecified CPT copyright 2017 [employer]. All rights reserved. The codes documented in this report are preliminary and upon cad librarian reviewmay be revised to meet current compliance requirements. Recognized by the [place] [employer] for promoting quality in endoscopy us Dang Denis MD ENDOSCOPY PROCEDURES Final Result * POCT hCG, urine (07/29/2019 11:02 AM CDT) HCG, ur, POC Negative Lot Number [id number] QC Backgroud Clear Acceptable QC Control Line Acceptable Urine 07/29/2019 11:0 2 AM CDT us Dang Denis MD POINT OF CARE TEST ORDERAB LES Final Result documented in this encounter Visit Diagnoses Diagnosis Nausea and vomiting, intractability of vomiting not specified, unspecified vomiting type Epigastric pain Abdominal pain, epigastric Gastroesophageal reflux disease, esophagitis presence not specified Diarrhea, unspecified type Abdominal pain, unspecified abdominal location Nausea and vomiting Nausea with vomiting Epigastric pain Abdominal pain, epigastric Gastroesophageal reflux disease Esophageal reflux Diarrhea Abdominal pain Abdominal pain, unspecified site Nausea with vomiting AP (abdominal pain) Abdominal pain, unspecified site Nausea and vomiting, intractability of vomiting not specified, unspecified vomiting type Epigastric pain Abdominal pain, epigastric Gastroesophageal reflux disease, esophagitis presence not specified Diarrhea, unspecified type Abdominal pain, unspecified abdominal location documented in this encounter Admitting Diagnoses Diagnosis Nausea and vomiting Nausea with vomiting Epigastric pain Abdominal pain, epigastric Gastroesophageal reflux disease Esophageal reflux Diarrhea Abdominal pain Abdominal pain, unspecified site Nausea with vomiting AP (abdominal pain) Abdominal pain, unspecified site documented in this encounter Administered Medications Inactive Administered Medications - up to 3 most recent administrations Medication Order MAR Action Action Date Dose Rate Site ondansetron (ZOFRAN) injection 4 mg 4 mg, intravenous, Administer over 2 Minutes, Every 30 min PRN, nausea, vomiting, Starting on Sun07/29/19 at 1026, For 2 doses, Recovery (GI), Indications: Nausea and VomitingIndications:Nausea and Vomiting sodium chloride 0.9% flush 0.5-20 mL 0.5-20 mL, intra-catheter, Every 8 hours scheduled, First dose on Sun07/29/19 at 1400, Pre-Procedure (GI), Flush volume based on line type and size. sodium chloride 0.9% flush 0.5-20 mL 0.5-20 mL, intra-catheter, As needed, line care, Starting on Sun07/29/19 at 1027, Pre-Procedure (GI), Flush volume based on line type and size. Flush before and after each use. sodium chloride 0.9% infusion 30 mL/hr, intravenous, Continuous, Starting on Sun07/29/19 at 1100, Pre-Procedure (GI) Rate/Dose Verify 07/29/2019 12:05 PM CDT New Bag 07/29/2019 11:24 AM CDT 30 mL/hr 30 mL/hr L eft Hand sodium chloride 0.9% infusion 125 mL/hr, intravenous, Continuous, Starting on Sun07/29/19 at 1100, Recovery (GI) documented in this encounter Discontinued Medications Medication Sig Discontinue Reason Start Date End Da te predniSONE (DELTASONE) 1 mg tablet Please take 2 tablets at night for 2 weeks and then 1 tablet at night for 2 weeks and stop Stop Taking at Discharge 07/02/2019 07/29/2019 promethazine (PHENERGAN) 12.5 mg tablet Take 1 tablet (12.5 mg total) by mouth every 6 (six) hours as needed for nausea or vomiting for up to 7 days Stop Taking at Discharge 07/21/2019 07/29/2019 documented as of this encounter Historical Medications * This list may reflect changes made after this encounter. traZODone (DESYREL) 150 mg tabletIndications :takes on 75mg Take 150 mg by mouth nightly 11/20/2019 ketorolac (TORADOL) 10 mg tablet Take 10 mg by mouth every 6 (six) hours as needed for pain 11/20/2019 predniSONE (DELTASONE) 1 mg tablet Take 1 mg by mouth daily 11/03/2019 predniSONE (DELTASONE) 10 mg tablet Take 12.5 mg by mouth daily 09/10/2019 added in this encounter Active and Recently Administered Medications Times are shown in CDT. Scheduled Medication Order 07/27/2019 07/28/2019 07/29/2019 sodium chloride 0.9% flush 0.5-20 mL 0.5-20 mL, intra-catheter, Every 8 hours scheduled, First dose on Sun07/29/19 at 1400, Pre-Procedure (GI), Flush volume based on line type and size. Continuous Medication Order 07/27/2019 07/28/2019 07/29/2019 sodium chloride 0.9% infusion 30 mL/hr, intravenous, Continuous, Starting on Sun07/29/19 at 1100, Pre-Procedure (GI) 1124 (New Bag - Prov ider: Kristie Pollard RN)1205 (Rate/Dose Verify - Provider: Alexander Huff MD PhD) sodium chloride 0.9% infusion 125 mL/hr, intravenous, Continuous, Starting on Sun07/29/19 at 1100, Recovery (GI) 1100 (Due) PRN Medication Order 07/27/2019 07/28/2019 07/29/2019 ondansetron (ZOFRAN) injection 4 mg 4 mg, intravenous, Administer over 2 Minutes, Every 30 min PRN, nausea, vomiting, Starting on Sun07/29/19 at 1026, For 2 doses, Recovery (GI), Indications: Nausea and Vomiting sodium chloride 0.9% flush 0.5-20 mL 0.5-20 mL, intra-catheter, As needed, line care, Starting on Sun07/29/19 at 1027, Pre-Procedure (GI), Flush volume based on line type and size. Flush before and after each use. documented in this encounter Orders Medications Ordered That Omer ht Not Have Been Administered Count Last Ordered Date First Ordered Date ondansetron (ZOFRAN) injection 4 mg 1 07/28 sodium chloride 0.9% flush 0.5-20 mL 2 03/2019 sodium chloride 0.9% infusion 1 07/29/2019 documented in this encounter Care Teams Portrait Studio Photographer Relationship Specialty [place] [address] [address] [address] PCP - General 07/04/19 [place] [address] [address] [address] 11/16/18 documented as of this encounter
--- OUTSIDE RECORDS SUMMARY | 2024-02-24 20:14 | XMS_ITS | Encounter Summary ---
Author Organization [facility] Healthcare Address [address] [place] [address] Care Team Providers Care Logistics Planner Name Role Phone Huseyin Dangelo MD Unavailable [phone] Brian Mon MD Primary Care Provider + Encounter Details Date Type Department Care Team (Latest Contact Info) Description 07/29/2019 10:08 AM CDT - 07/29/2019 1:25 PM CDT Hospital Encounter [facility] [address] [place] [address] Dang Denis MD [address] [place], [place] [id number] Nausea and vomiting, intractability of vomiting not specified, unspecified vomiting type; Epigastric pain; Gastroesophageal reflux disease, esophagitis presence not specified; Diarrhea, unspecified type; Abdominal pain, unspecified abdominal location Discharge Disposition: Discharge to home or self [...] Sign Reading Time Taken Comments Blood Pressure 106/79 07/29/2019 1:05 PM CDT Pulse 73 07/29/2019 1:05 PM CDT Temperature 36.8 ??C (98.2 ??F) 07/29/2019 10:42 AM C DT Respiratory Rate 18 07/29/2019 1:05 PM CDT Oxygen Saturation 100% 07/29/2019 1:05 PM CDT Inhaled Oxygen Concentration - - Weight 73.5 kg (162 lb) 07/29/2019 10:42 AM CDT Height 160 cm (5' 3 ) 07/29/2019 10:42 AM CDT Body Mass Index 28.7 07/29/2019 10:42 AM CDT documented in this encounter Discharge Diagnoses Diagnosis Noninfective gastroenteritis and colitis, unspecified - NONINFECTIVE GASTROENTERITIS AND COLITIS, UNSPECIFIED Functional dyspepsia - FUNCTIONAL DYSPEPSIA Dyspepsia and other specified disorders of function of stomach Generalized abdominal pain - GENERALIZED ABDOMINAL PAIN Abdominal pain, generalized Gastro-esophageal reflux disease without esophagitis - GASTRO-ESOPHAGEAL REFLUX DISEASE WITHOUT ESOPHAGITIS Fibromyalgia - FIBROMYALGIA Unspecified myalgia and myositis Discoid lupus erythematosus - DISCOID LUPUS ERYTHEMATOSUS Rheumatoid arthritis, unspecified (HCC) - RHEUMATOID ARTHRITIS, UNSPECIFIED Unspecified asthma, uncomplicated - UNSPECIFIED ASTHMA, UNCOMPLICATED Hypertensive chronic kidney disease with stage 1 through stage 4 chronic kidney disease, or unspecified chronic kidney disease - HYPERTENSIVE CHRONIC KIDNEY DISEASE WITH STAGE 1 THROUGH STAGE 4 CHRONIC KIDNEY DISEASE, OR UNSPECIF Chronic kidney disease, unspecified - CHRONIC KIDNEY DISEASE, UNSPECIFIED Personal history of nicotine dependence - PERSONAL HISTORY OF NICOTINE DEPENDENCE Other skilled nursing (current) drug therapy - OTHER CARE HOME (CURRENT) DRUG THERAPY Allergy status to other [...] - 07/29/2019 12:08 PM CDTAssociated Order(s): [facility] Patient Name: Carito Rausch Procedure Date: 07/29/2019 12:08 PM Date of : 1990 Admit Type: Outpatient Age: 29 Gender: Female Attending MD: Dang Denis M.D. Room: [facility] 1 Note Status: Finalized Patient [...] passed under direct vision. The Endoscope GIF-H190 [id number] was introduced through the mouth, and advanced [...] 12:08 PM Procedure Code(s): --- Professional --- 12390, Esophagogastroduodenoscopy, flexible, transoral; with biopsy, single or multiple Diagnosis Code(s): --- Professional --- R10.84, Generalized abdominal pain K30, Functional dyspepsia CPT copyright 2017 [employer]. All rights reserved. The codes documented in this report are preliminary and upon insurance coder review may be revised to meet current compliance requirements. Recognized by the [employer] [employer] for promoting quality in endoscopy * Dang Denis MD - 07/29/2019 12:05 PM CDTAssociated Order(s): COLONOSCOPY [facility] Patient Name: Carito Rausch Procedure Date: 07/29/2019 12:05 PM Date of : 1990 Admit Type: Outpatient Age: 29 Gender: Female Attending MD: Dang Denis M.D. Room: [facility] 1 Note Status: Finalized Patient [...] under direct vision. The Pediatric Colonoscope PCF-H190L [id number] was introduced through the anus and advanced [...] 12:05 PM Procedure Code(s): --- Professional --- 84577, Colonoscopy, flexible; with biopsy, single or multiple Diagnosis Code(s): --- Professional --- R10.84, Generalized abdominal pain K52.9, Noninfective gastroenteritis and colitis, unspecified CPT copyright 2017 [employer]. All rights reserved. The codes documented in this report are preliminary and upon insurance coder review may be revised to meet current compliance requirements. Recognized by the [employer] for promoting quality [...] Biopsy) 07/29/2019 12:25 PM CDT Narrative PATHOLOGY [facility] - 07/30/2019 12:15 PM CDT [facility] results best viewed via link to PDF [facility] Department of Pathology [address] [place] [address] Final Report Patient Name: ??CARITO RAUSCHRosa Address: ??[address] [place] [address], ??[place], [place] ??[facility] Gender: ??F : ??1990 (Age: 29) Service: ??Gastro Location: ??[facility] #: ??[id number] Patient Type: ??[facility] Accession # ?[id number] Taken: ??07/29/2019 Received: ??07/29/2019 Accessioned: ??07/29/2019 Reported: [...] mm. ??All in one cassette. ??Madison Szymanski M.D./[employer]. REPORT IMAGES AND SCANNED DOCUMENTS, IF INCLUDED, ONLY VIEWABLE IN PDF VERSION OF REPORT The performance characteristics of some immunohistochemical stains, fluorescence in-situ hybridization tests and immunophenotyping by flow cytometry cited in this report (if any) were determined by the Surgical Pathology Department at [facility] as part of an ongoing quality rn program and in compliance with federally mandated [...] characteristics determined by the Surgical Pathology Department [facility]. ??It has not been cleared or approved by the U. S. Food and Drug Administration. Dang Denis MD LAB PATHOLOGY ORDERABLES F inal Result PATHOLOGY [facility] [address] [place] [address] * H. pylori urease screen (LIZANDRO test) Tissue (07/29/2019 12:17 PM CDT) H. pylori, rapid (LIZANDRO) Negative Negative [facility] Tissue 07/29/2019 12:1 7 PM CDT 07/29/2019 2:57 PM CDT Dang Denis MD LAB MICROBIOLOGY - GENERAL ORDERABLES Final Result [facility] Department [place] [address] * EGD (07/29/2019 12:08 PM CDT) Anatomical Region Laterality Modality Other Narrative Procedure Note Dang Denis MD - 07/29/2019 12:08 PM CDT [facility] Patient Name: Carito Rausch Procedure Date: 07/29/2019 12:08 PM Date of : 1990 Admit Type: Outpatient Age: 29 Gender: Female Attending MD: Dang Denis M.D. Room: [facility] 1 Note Status: Finalized Patient [...] was passed under direct vision.The Endoscope GIF-H190 [id number] was introduced throughthe mouth, and advanced to [...] 12:08 PM Procedure Code(s): --- Professional --- 31786, Esophagogastroduodenoscopy, flexible, transoral; with biopsy, single or multiple Diagnosis Code(s): --- Professional --- R10.84, Generalized abdominal pain K30, Functional dyspepsia CPT copyright 2017 [employer]. All rights reserved. The codes documented in this report are preliminary and upon insurance coder reviewmay be revised to meet current compliance requirements. Recognized by the [employer] [employer] for promoting quality in endoscopy us Dang Denis MD ENDOSCOPY PROCEDURES Final Result * COLONOSCOPY (07/29/2019 12:05 PM CDT) Anatomical Region Laterality Modality Other Narrative Procedure Note Dang Denis MD - 07/29/2019 12:05 PM CDT [facility] Patient Name: Carito Rausch Procedure Date: 07/29/2019 12:05 PM Date of : 1990 Admit Type: Outpatient Age: 29 Gender: Female Attending MD: Dang Denis M.D. Room: [facility] 1 Note Status: Finalized Patient [...] passed under direct vision.The Pediatric Colonoscope PCF-H190L [id number] was introduced through the anus and advanced [...] 12:05 PM Procedure Code(s): --- Professional --- 18155, Colonoscopy, flexible; with biopsy, single or multiple Diagnosis Code(s): --- Professional --- R10.84, Generalized abdominal pain K52.9, Noninfective gastroenteritis and colitis, unspecified CPT copyright 2017 [employer]. All rights reserved. The codes documented in this report are preliminary and upon insurance coder reviewmay be revised to meet current compliance requirements. Recognized by the [employer] for promoting quality in endoscopy Dang Denis MD ENDOSCOPY PROCEDURES Final Result * POCT hCG, urine (07/29/2019 11:02 AM CDT) HCG, ur, POC Negative Lot Number [id number] QC Backgroud Clear Acceptable QC Control Line Acceptable Urine 07/29/2019 11:0 2 AM CDT Dang Denis MD POINT OF CARE TEST [...] pain, unspecified site documented in this encounter Admitting Diagnoses Diagnosis [...] 07/29/2019 documented in this encounter Care Teams Logistics Planner Relationship Specialty [place] [address] [address] [place] [place] [place] [address] PCP - General 07/04/19 [place] [address] [address] [address] 11/16/18 documented as of this encounter
--- OUTSIDE RECORDS SUMMARY | 2024-02-24 20:14 | XMS_ITS | Encounter Summary ---
Author Organization [facility] Address [address] [place] [address] Care Team Providers Care Fire Warden Name Role Phone Huseyin Dangelo MD Unavailable Brian Mon MD Primary Care Provider + Encounter Details Date Type Department Care Team (Late st Contact Info) Description 08/01/2019 Telephone [facility] Gastroenterology at [address] [place] [address] Anneliese Alvarenga NP [address] [facility] [address] [address] Social History Tobacco Use Types Packs/Day Years [...] Telephone Encounter - Anneliese Alvarenga NP - 08/01/2019 11:00 AM CDT Pt called and wanting to know results of EGD and colonoscopy. She says that Dr. Denis had told her they were normal and wasn't sure where to go from here. She says she did start on lexapro about 2.5 weeks ago and overall GI symptoms have been getting a little bit better; however, last night shewoke up feeling as if she couldn't breathe. She called an ambulance and we evaluated by EMT but they were unable to find anything wrong. She says she feels fine this morning. She also says she did have an episode of vomiting yesterday but that was after she had some greasy food. We discussed that recent imaging, labs, EGD and colonoscopy did not find any explanation for her symptoms. We discussed that this could either be due to snf use of prednisone/lupus medication or function GI issues. Pt was instructed to continue her Lexapro as this can take several weeks to experience full benefits. She is also working with her RA provider to try and get off the prednisone and may start on some injections for the lupus. She should clean up her diet and avoid greasy/heavy foods. Pt was instructed to call our office right away if she continues to have symptoms or they worsen despite taking Lexapro or red flag symptoms discussed. She verbalized understanding. documented in this encounter Plan of Treatment Not on file documented as of this encounter Visit Diagnoses Not on filedocumented in this encounter Care Teams Fire Warden Relationship Specialty [place] [address] [address] [facility] [address] [place] [address] PCP - General 07/04/19 [place] [address] [address] [facility] [address] [place] [address] 11/16/18 documented as of this encounter
--- OUTSIDE RECORDS SUMMARY | 2024-02-24 20:14 | XMS_ITS | Encounter Summary ---
Author Organization [facility] Address [address] [place] [address] Care Team Providers Care Dealer Card Room Name Role Phone Huseyin Dangelo MD Unavailable [phone] Brian Mon MD Primary Care Provider + Encounter Details Date Type Department Care Team (Late st Contact Info) Description 07/29/2019 12:07 PM CDT Anesthesia Event [address] [address] Alexander Huff MD PhD [address] [place] [id number] [place] [address] [address] Anesthesia Record Procedure Summary Procedure Name Responsible Anesthesiologist Anesthesia Start Time Anesthesia Stop Time Esophagogastroduodenoscopy Biopsy Alexander Huff MD PhD 07/29/19 1207 07/29/19 1226 Events Date Time Event Comment 07/29/2019 1135 1207 In Room 1207 An Start 1207 An Start Data 1209 Start Supplemental O2 1209 Patient Positioned Laterally 1210 Proc Start 1212 An Induction The patient was reevaluated immediately before moderate or deep sedation use and before anesthesia induction. 1217 Anesthesia Ready 1226 Handoff to RN I completed my handoff [...] Patient disposition at the time of handoff: No value filed. 1226 An Stop 1228 Proc Fin 1230 Out of Room Meds Name Total lidocaine (cardiac) syringe 2 % 100 mg propofol 210 mg sodium chloride 0.9% infusion 0 mL * Agents Name O2 * Blood No blood administrations on file. Lines, Drains, and Airways Type Details Placement Removal Peripheral IV Placement Date: 07/29/19; Placement Time: 112; Catheter Size: 22 G; Orientation: Left; Location: Wrist; Site Prep: Chlorhexidine; Inserted by: Ludy Mario RN; Insertion Attempts: 2; Patient Tolerance: Tolerated well; Removal Date: 07/29/19; Removal Time: 1305 07/29/19 1121 by Kristie Pollard RN 07/29/19 1305 by Мария Mcmullen RN documented in this encounter Social History [...] OR Notes * Anesthesia Postprocedure Evaluation - Alexander Huff MD PhD - 07/29/2019 1:37 PM CDT Patient: Carito Rausch Procedure Summary Date: 07/29/19 Room / Location: [facility] ROOM 1 / [facility] Anesthesia Start: 1207 Anesthesia Stop: 1226 Procedures: Esophagogastroduodenoscopy Biopsy (N/A ) Colon Biopsy (N/A ) Diagnosis: Nausea and vomiting, intractability of vomiting not specified, unspecified vomiting type Epigastric pain Gastroesophageal reflux disease, esophagitis presence not specified Diarrhea, unspecified type Abdominal pain, unspecified abdominal location (Nausea and vomiting, intractability of vomiting not specified, unspecified vomiting type [R11.2]) (Epigastric pain [R10.13]) (Gastroesophageal reflux disease, esophagitis presence not specified [K21.9]) (Diarrhea, unspecified type [R19.7]) (Abdominal pain, unspecified abdominal location [R10.9]) Provider: aDng Denis MD Responsible Provider: Alexander Huff MD PhD Anesthesia Type: general/TIVA ASA Status: 3 Anesthesia Type: general/TIVA Last vitals BP 106/79 Pulse 73 Temp 36.8 ??C (98.2 ??F) (Temporal) Resp 18 SpO2 100% Anesthesia Post Evaluation Patient location during evaluation: PACU Patient participation: complete - patient participated Level of consciousness: fully awake Pain score: 0 Pain management: adequate Airway patency: adequate Anesthetic complications: no Cardiovascular status: acceptable Respiratory status: acceptable Hydration status: acceptable Pt is: normothermic Nausea/Vomiting status: none * Anesthesia Preprocedure Evaluation - Augustin Watters MD - 07/29/2019 10:13 AM CDT Images from the original note were not included. Anesthesia Evaluation Carito Rausch is a 29 y.o. female Procedure(s): ESOPHAGOGASTRODUODENOSCOPY COLONOSCOPY Pre-Op Diagnosis Codes: * Nausea and vomiting, intractability of vomiting not specified, unspecified vomiting type [R11.2] * Epigastric pain [R10.13] * Gastroesophageal reflux disease, esophagitis presence not specified [K21.9] * Diarrhea, unspecified type [R19.7] * Abdominal pain, unspecified abdominal location [R10.9] HISTORY HPI Covid 19 neg 07/27/19 Past Medical History Information obtained from: patient and chart. Neurological + Seizures Cardiovascular + Hypertension Respiratory + Asthma Cigarette smoker: MJ. Hepatic / Heme + History of anemia Gastrointestinal + GERD - on daily therapy. Renal / + Renal disease - CKD Musculoskeletal/Pain + Chronic pain - fibromyalgia. Functional Capacity Functional capacity: 4-6 METs Review of Systems + chronic pain Patient Active Problem List Diagnosis ??? Laceration of flexor muscle, fascia and tendon of right little finger at wrist and hand level, initial encounter ??? Cough ??? Lupus (CMS/HCC) ??? Miscarriage ??? Tachycardia ??? Nausea and vomiting ??? Epigastric pain ??? Gastroesophageal reflux disease ??? Diarrhea ??? Abdominal pain ??? Liver lesion ??? BMI 29.0-29.9,adult ??? Nausea with vomiting ??? AP (abdominal pain) Past Medical History: Diagnosis Date ??? Anemia ??? Chronic kidney disease ??? Depression ??? Fibromyalgia ??? Fibromyalgia ??? Lupus (CMS/HCC) ??? 07/13/2015 ??? Rheumatoid arthritis (CMS/HCC) Past Surgical History: Procedure Laterality Date ??? APPENDECTOMY ??? DILATION AND CURETTAGE OF UTERUS ??? HAND SURGERY ??? WRIST SURGERY Right 12/09/2018 rt wrist median nerve repair, allograft nerve wrap application OB History 2 Para Term AB Living SAB TAB Ectopic Multiple Live Births Allergies Allergen Reactions ??? Methylprednisolone Anaphylaxis and Syncope Syncope ??? Venlafaxine Itching Taking? Last Dose Start Date End Date Provider albuterol (PROAIR RESPICLICK) 90 mcg/actuation inhaler -- -- Historical Provider, ALPRAZolam (XANAX) 0.25 mg tablet -- -- Historical Provider, belimumab (Benlysta) auto-injector 07/23/19 -- Carolina Delarosa MD Inject 1 mL (200 mg total) under the skin every 7 days diclofenac sodium (VOLTAREN) 1 % gel 07/18/19 08/17/19 Can Vinicius Scott MD PhD Apply 2 g topically 3 (three) times a day Apply to arthritis joints PRN escitalopram (LEXAPRO) 10 mg tablet 07/11/19 -- Historical Provider, hydroxychloroquine (PLAQUENIL) 200 mg tablet -- -- Historical Provider, metoclopramide (REGLAN) 10 mg tablet 07/21/19 -- Michael Alvarado MD Take 1 tablet (10 mg total) by mouth every 8 (eight) hours as needed (Nausea) omeprazole (PriLOSEC) 20 mg capsule 06/21/19 -- Historical Provider, predniSONE (DELTASONE) 10 mg tablet -- -- Historical Provider, predniSONE (DELTASONE) 5 mg tablet -- -- Historical Provider, promethazine (PHENERGAN) 12.5 mg tablet () 07/21/19 07/28/19 Dang Denis MD Take 1 tablet (12.5 mg total) by mouth every 6 (six) hours as needed for nausea or vomiting for up to 7 days Flag for Review Taking? Last Dose Start Date End Date Provider ergocalciferol (VITAMIN D) 50,000 unit capsule 06/21/19 -- Historical Provider, predniSONE (DELTASONE) 1 mg tablet 07/02/19 -- Carolina Delarosa MD Please take 2 tablets at night for 2 weeks and then 1 tablet at night for 2 weeks and stop No current facility-administered medications for this encounter. Social History Tobacco Use Smoking Status Former Smoker Smokeless Tobacco Never Used Substance and Sexual Activity Alcohol Use Not Currently Substance and Sexual Activity Drug Use Never Family History Problem Relation Age of Onset ??? Gout Mother ??? Heart disease Father ??? Stroke Father There were no vitals filed for this visit. PT: 07/15/2019: 10.9 sec INR: 07/15/2019: 1.0 APTT: 07/15/2019: 25 sec Hgb A1C: No results found for requested labs within last 720 hours. CBC RBC: 07/21/2019: 3.75 M/cumm* RDW: No results found for requested labs within last 720 hours. MCHC: 07/21/2019: 32.8 g/dL MCH: 07/21/2019: 29.3 pg MCV: 07/21/2019: 89.3 fL Hct: 07/21/2019: 33.5 %* Hgb: 07/21/2019: 11.0 g/dL* WBC: 07/21/2019: 6.9 K/cumm MPV: 07/21/2019: 9.4 fL Platelets: 07/21/2019: 251 K/cumm RDW CV: 07/21/2019: 14.8 % RDW Sd: 07/21/2019: 47.7 fL BMP Glucose: 07/21/2019: 97 mg/dL Calcium: 07/21/2019: 9.2 mg/dL Sodium: 07/21/2019: 141 mmol/L Potassium: 07/21/2019: 3.6 mmol/L CO2: 07/21/2019: 25 mmol/L Chloride: 07/21/2019: 103 mmol/L BUN: 07/21/2019: 13 mg/dL Creatinine: 07/21/2019: 0.73 mg/dL DOS Physical Exam Medical history, medications, and allergies reviewed. Attestation: I endorse the findings of the anesthesia pre-evaluation assessment dated: 07/29/2019. Airway Exam: Mallampati: I Cervical ROM: FROM TM distance: >4 Jaw ROM: full Cardiovascular Exam: Rate: regular Rhythm: regular Pulmonary Exam: LCTA, bilat EENT Exam: trachea midline Dental Exam: Appears intact Skin Exam: Skin is warm. Current state: Patient's current state is cooperative. Anesthesia Plan ASA 3 Planned anesthesia: General/TIVA Induction: Induction: intravenous. Postoperative Plan: No plan for postoperative opioid use. No postoperative mechanical ventilation intended. Patient's planned disposition post procedure is Outpatient. Informed Consent: Discussed plan with RISK PROFESSIONAL. Anesthesia plan and risks discussed with patient. Consent and Attending signature: I and/or my [...] MAR Action Action Date Dose Rate Site lidocaine (cardiac) (XYLOCAINE) preservative free injection intravenous, As needed, Starting on Sun07/29/19 at 1213, Anesthesia Intra-op, Indications: Ventricular ArrhythmiasIndications:Ventricula r Arrhythmias Given 07/29/2019 12:13 PM CDT 100 mg propofoL (DIPRIVAN) IV intravenous, As needed, Starting on Sun07/29/19 at 1213, Anesthesia Intra-op Given 07/29/2019 12:21 PM CDT 40 mg Given 07/29/2019 12:19 PM CDT 40 mg Given 07/29/2019 12:16 PM CDT 40 mg sodium chloride 0.9% infusion 30 mL/hr, intravenous, Continuous, Starting on Sun07/29/19 at 1100, Pre-Procedure (GI) Rate/Dose Verify 07/29/2019 12:05 PM CDT New Bag 07/29/2019 11:24 AM CDT 30 mL/hr 30 mL/hr L eft Hand documented in this encounter Care Teams Dealer Card Room Relationship Specialty [place] [address] [address] [facility] [address] [place] [address] PCP - General 07/04/19 [place] [address] [address] [facility] [address] [place] [address] 11/16/18 documented as of this encounter
--- OUTSIDE RECORDS SUMMARY | 2024-02-24 20:14 | XMS_ITS | Encounter Summary ---
Author Organization [facility] [employer] [facility] Address [address] [place] [address] Phone Care Team Providers Care Compensation Associate Name Role Phone Huseyin Dangelo MD Unavailable [phone] Brian Mon MD Primary Care Provider + Reason for Visit * Reason Onset Date Comments Prior Auth 09/11/2019 Encounter Details Date Type Department Care Team (Late st Contact Info) Description 09/11/2019 Telephone [facility] Rheumatology [facility] Advanced Medicine 5th [place] [address] [place] [address] Nallely Griffiths, [facility] Prior Auth Social History Tobacco Use Types [...] encounter Miscellaneous Notes * Telephone Encounter - Sabrina Adamson - 09/23/2019 7:52 AM CDT approved * Telephone Encounter - Nallely Griffiths CMA - 09/11/2019 8:05 AM CDT Pt need PA for Benlysta infusion. New [facility] insurance is updated in the patient chart as well as photos of cards documented in this encounter Plan of Treatment Not on file documented as of this encounter Results * Lupus Anticoagulant Panel plus Reflexes (09/24/2019 8:35 AM CDT) PT 10.4 8.6 - 13.0 sec ARPITA ROSADO Comment:Testing performed by : [facility], [address] [place]., [address] INR 1.0 0.8 - 1.2 ARPITA BARNESCH Comment: Interpretive data Oral anticoagulant therapeutic ranges: Venous thromboembolism prophylaxis or treatment: 2.0-3.0 CARDIOLOGY Standard range: 2.0-3.0 High-intensity range: 2.5-3.5 Refer to indication-specific guidelines for appropriate target ranges for prosthetic heart valve replacement. Current interpretive data was last revised on 2019. Testing performed by: [facility], [address] [place]., [address] aPTT 28 25 - 37 sec ARPITA BARNESCH Comment: Interpretive data Heparin therapeutic range: 60-90 seconds Range based on correlation with therapeutic heparin activity range of 0.3-0.7 units/ml. Current interpretive data was last revised on 2019. Testing performed by: [facility], [address] [place]., [address] DRVVT screen ratio 1.07 0.00 - 1.20 Ratio CERNER BJWCH Comment:Testing performed by : [facility], [address] [place]., [address] SCT Screen Ratio 0.84 0.00 - 1.16 Ratio CERNER BJWCH Comment:Testing performed by : [facility], [address] [facility], [place]., [address] Lupus anticoagulant, interp Negative ARPITA [facility] Comment: Interpretive data ?? Lupus anticoagulants (LA) [...] ?? References: 1) Almas V, Jerrica A, Cragford JH, Ormahsa TL, Marina M, De Sandeep PG. Update of the guidelines for lupus anticoagulant detection. J Thromb Haemost. 2009; 7:0714-4030. 2. Cuong SRosa et al. International consensus statement on an update of the classification criteria for definite antiphospholipid syndrome (APS). J Thromb Haemost. 2006; 4:295-306. Current interpretive data was last revised on 2018 Testing performed by: [facility], [address] [place]., [address] Blood specimen (specimen) 09/24/2019 8:35 AM CDT 09/24/2019 3:41 PM CDT Carolina Delarosa MD LAB BLOOD ORDERABLES Final Result Performing Organization Address City/[facility] Co de Phone Number ARPITA BARNESCH [address] [facility]. [facility] [place] [address] * Beta 2 glycoprotein IgM Ab (09/24/2019 8:35 AM CDT) Beta-2 glycoprotein I, IgM <9.4 <15.0 (Negative) units/mL [facility]ITA [facility] Comment: Test Performed by: [place] [address] Field Underwriter: Dima Travis M.D. Ph.D.; CLIA# [id number] Blood specimen (specimen) 09/24/2019 8:35 AM CDT 09/24/2019 9:45 AM CDT Carolina Delarosa MD LAB BLOOD ORDERABLES Final Result Performing Organization Address [facility] de Phone Number ARPITA MORANWCH [address] [facility] [place] [address] * Beta 2 glycoprotein IgG Ab (09/24/2019 8:35 AM CDT) Beta-2 glycoprotein I, IgG <9.4 <15.0 (Negative) units/mL ARPITA [facility] Comment: Test Performed by: [place] [address] Field Underwriter: Dima Travis M.D. Ph.D.; CLIA# [id number] Blood specimen (specimen) 09/24/2019 8:35 AM CDT 09/24/2019 9:45 AM CDT Carolina Delarosa MD LAB BLOOD ORDERABLES Final Result Performing Organization Address City/[facility]/ZIP Co de Phone Number ARPITA MORANWCH [address] [facility]. [facility] [place] [address] * Cardiolipin antibody, IgM (09/24/2019 8:35 AM [...] antibodies. ??These results were obtained with the [employer] 2200 System. Cardiolipin IgM values obtained with different manufacturers' assay methods may not be used interchangeably. Current interpretive data was last revised on 2016. Testing performed by: [facility], [address] [place]., [address] Blood specimen (specimen) 09/24/2019 8:35 AM CDT 09/24/2019 1:10 PM CDT us Carolina Delarosa MD LAB BLOOD ORDERABLES Final Result ARPITA MORANCH [address] [facility]. Department [place] [address] * Cardiolipin antibody, IgG (09/24/2019 8:35 AM [...] URBANO. These results were obtained with the [employer] 2200 System. Cardiolipin IgG values obtained with different manufacturers' assay methods may not be used interchangeably. Current interpretive data was last revised on 2016. Testing performed by: [facility], [address] [place]., [address] Blood specimen (specimen) 09/24/2019 8:35 AM CDT 09/24/2019 1:10 PM CDT Carolina Delarosa MD LAB BLOOD ORDERABLES Final Result Performing Organization Address City/State/[facility] Number ARPITA [facility] [address] [facility] Department [place] [address] documented in this encounter Visit Diagnoses Diagnosis Lupus- Primary Systemic lupus erythematosus documented in this encounter Additional Health Concerns Infection Onset Date Last Indicated Resolved Time Exposure, COVID-19 Comment:Added automatically based on COVID19 lab answers indicating exposure risk 09/11/2019 09/11/2019 09/26/2019 3:05 AM C DT documented as of this encounter Care Teams Compensation Associate Relationship Specialty Start [place] [id number] [address] PCP - General 07/04/19 [place] [address] [facility] [address] [address] 11/16/18 documented as of this encounter
--- OUTSIDE RECORDS SUMMARY | 2024-02-24 20:14 | XMS_ITS | Encounter Summary ---
Author Organization [facility] Healthcare Address [address] [place] [address] Care Team Providers Care Block Captain Name Role Phone Huseyin Dangelo MD Unavailable [phone] Brian Mon MD Primary Care Provider + Reason for Visit * Reason Comments Vomiting Encounter Details Date Type Department Care Team (Late st Contact Info) Description 08/19/2019 7:33 AM CDT - 08/19/2019 10:31 AM CDT Emergency [facility] Emergency Department [address] [place] [address] Michael Alvarado MD 1 [facility] [place] [address] Trichomonas vaginalis infection (Primary Dx); STD exposure Discharge Disposition: Discharge to home or self [...] Reading Time Taken Comments Blood Pressure 121/75 08/19/2019 10:30 AM CDT Pulse 82 08/19/2019 10:30 AM CDT Temperature 36.7 ??C (98 ??F) 08/19/2019 7:48 AM CDT Respiratory Rate 14 08/19/2019 10:30 AM CDT Oxygen Saturation 98% 08/19/2019 10:30 AM CDT Inhaled Oxygen Concentration - - Weight 72.6 kg (160 lb) 08/19/2019 7:48 AM CDT Height 157.5 cm (5' 2 ) 08/19/2019 7:48 AM CDT Body Mass Index 29.26 08/19/2019 7:48 AM CDT documented in this encounter Discharge Diagnoses Diagnosis Trichomonal vulvovaginitis - TRICHOMONAL VULVOVAGINITIS Nausea with vomiting, unspecified - NAUSEA WITH VOMITING, UNSPECIFIED Diarrhea, unspecified - DIARRHEA, UNSPECIFIED Myalgia, unspecified site - MYALGIA, UNSPECIFIED SITE Acute pharyngitis, unspecified - ACUTE PHARYNGITIS, UNSPECIFIED Systemic lupus erythematosus, unspecified (HCC) - SYSTEMIC LUPUS ERYTHEMATOSUS, UNSPECIFIED Hypertensive chronic kidney disease with stage 1 through stage 4 chronic kidney disease, or unspecified chronic kidney disease - HYPERTENSIVE CHRONIC KIDNEY DISEASE WITH STAGE 1 THROUGH STAGE 4 CHRONIC KIDNEY DISEASE, OR UNSPECIF Chronic kidney disease, unspecified - CHRONIC KIDNEY DISEASE, UNSPECIFIED Contact with and (suspected) exposure to infections with a predominantly sexual mode of transmission - CONTACT WITH AND (SUSPECTED) EXPOSURE TO INFECTIONS WITH A PREDOMINANTLY SEXUAL MODE OF TRANSMISSION Allergy status to other drugs, medicaments and biological substances status - ALLERGY STATUS TO OTHER DRUGS, MEDICAMENTS AND BIOLOGICAL SUBSTANCES STATUS Rheumatoid arthritis, unspecified (HCC) - RHEUMATOID ARTHRITIS, UNSPECIFIED documented in this encounter Discharge Instructions * Discharge Instructions* Michael Alvarado MD - 08/19/2019 10:00 AM CDT As discussed please return to the ED if you have fevers, dramatic change in abdominal pain, any newsymptoms or for any other concerns. * Attachments The following attachments cannot be sent through Care Everywhere. * Sexually Transmitted Diseases (AfterCare(R) Instructions(ER/ED)) (Pakistani) * Trichomoniasis (AfterCare(R) Instructions(ER/ED)) (Pakistani) documented in this encounter Medications at Time [...] 10 mg by mouth daily 07/11/2019 08/26/2019 hydroxychloroqui ne (PLAQUENIL) 200 mg tablet Take 100 mg by mouth nightly 10/15/2019 ketorolac (TORADOL) 10 mg tablet Take 10 [...] documented in this encounter ED Notes * Dougie Cruz RN - 08/19/2019 7:41 AM CDT Pt presents to the ed with n/v/d since yesterday. Pt also suffering from sore throat and body aches. Pt currently afebrile * Michael Alvarado MD - 08/19/2019 7:38 AM CDT Chief Complaint Patient presents with ??? Vomiting 7:42 AM 08/19/2019 Pt is a 29 y/o female with hx of lupus, RA, fibromyalgia, CKD, asthma, HTN, and Sz's presenting to the ED c/o persistent sore throat for the last 2 days. Pt reports associated chills, nausea, myalgias, diarrhea, and abnormal vaginal discharge. 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 Pt denies any alleviating or exacerbating factors for Sx. Pt denies any CP, SOB, vomiting, abdominal pain, [place], and all other medical complaints at this time. chronic daily prednisone SHx former smoker of cigarettes PMD: Brian Mon MD Pt was last admitted on 05/23-05/24 here at [facility] for suspectied COVID-19. Swab was negative. CXR clear. Nursing Note reviewed Past Medical History: Diagnosis [...] (XANAX) 0.25 mg tablet belimumab (Benlysta) auto-injector ergocalciferol (VITAMIN D) 50,000 unit capsule escitalopram (LEXAPRO) 10 mg tablet hydroxychloroquine (PLAQUENIL) 200 mg tablet ketorolac (TORADOL) 10 mg tablet omeprazole (PriLOSEC) 20 mg capsule predniSONE (DELTASONE) 10 mg tablet predniSONE (DELTASONE) 5 mg tablet traZODone (DESYREL) 150 mg tablet Allergies Allergen Reactions ??? Methylprednisolone Anaphylaxis and Syncope Syncope ??? Venlafaxine Itching Review of Systems Constitutional: Positive for chills. Negative for fatigue and fever. HENT: Positive for sore throat. Negative for ear pain, rhinorrhea and sneezing. Eyes: Negative for pain and itching. Respiratory: Negative for cough, shortness of breath and wheezing. Cardiovascular: Negative for chest pain and palpitations. Gastrointestinal: Positive for diarrhea and nausea. Negative for abdominal pain, constipation and vomiting. Genitourinary: Positive for vaginal discharge. Negative for dysuria and frequency. Musculoskeletal: Positive for myalgias. Negative for arthralgias, back pain and neck pain. Skin: Negative for rash and wound. Neurological: Negative for dizziness, syncope, weakness, light-headedness and headaches. All other systems reviewed and are negative. Physical Exam Vitals signs and nursing note reviewed. Exam conducted with a highway patrol commander present. Constitutional: General: She is not in acute distress. Appearance: She is well-developed. HENT: Head: Normocephalic and atraumatic. Right Ear: External ear normal. No drainage. Left Ear: External ear normal. No drainage. Nose: No rhinorrhea. Mouth/Throat: Mouth: Mucous membranes are moist. Eyes: [...] There is no abdominal tenderness. Genitourinary: Vagina: No foreign body. Vaginal discharge present. No tenderness. Musculoskeletal: Right lower leg: No edema. Left lower leg: No edema. Skin: General: Skin is warm and dry. Neurological: Mental Status: She is alert. Motor: Motor function is intact. Psychiatric: Behavior: Behavior is cooperative. Vitals: 08/19/19 0748 08/19/19 0925 BP: 130/82 117/68 Pulse: 82 78 Resp: 14 14 Temp: 36.7 ??C (98 ??F) SpO2: 98% 99% Weight: 72.6 kg (160 lb) Height: 157.5 cm (5' 2 ) XR Chest 1 Vw Portable Final Result 1. No acute cardiopulmonary process. Electronically signed by: Dilan Trejo M.D. Procedures MDM Number of Diagnoses or Management Options STD exposure: Trichomonas vaginalis infection: Diagnosis management comments: 29-year-old female with multiple comorbidities who presents today for multiple complaints. Amount and/or Complexity of Data Reviewed Clinical lab tests: ordered and reviewed Tests in the radiology section of CPT??: ordered and reviewed ED Course as of Aug 18 1001 Time: 08/18 100 Comment: Discussion of STD with her and her partner. Will treat her partner as well. Discussion of safe sex practices. Patient comfortable discharge. Patient discharged in stable condition. All questions answered. We had an extensive conversation regarding return precautions and need for follow up prior to disposition. By: Michael Alvarado MD IMPRESSION: 1. Trichomonas vaginalis infection 2. STD exposure ATTESTATIONS: This note is prepared by Maria Elena Sparrow acting as a scribe for Michael Alvarado MD I electronically signed this note at 10:02 AM on 08/19/2019. I, Michael Alvarado MD have personally performed the services described in the documentation , reviewed the documentation, as recorded by the scribe in my presence, and it accurately and completely records my words and actions. Any errors in translation of speech to the EMR are related to software and not the clinician. Michael Alvarado MD 08/19/19 1003 documented in this encounter Plan of Treatment Not on file documented as of this encounter Procedures Procedure Name Priority Date/Time Associated Diagnosis Comments XR CHEST 1 VIEW ED 08/19/2019 8:53 AM CDT N. GONORRHOEAE/C. TRACHOMATIS AMPLIFICATION STAT 08/19/2019 8:44 AM CDT GRAM STAIN YEAST STAT 08/19/2019 8:44 AM CDT TRICHOMONAS ANTIGEN STAT 08/19/2019 8 :44 AM CDT EGFR STAT 08/19/2019 8:25 AM CDT DIFFERENTIAL AUTO STAT 08/19/2019 8:2 5 AM CDT CBC WITH AUTO DIFFERENTIAL STAT 08/19/2019 8:25 AM CDT POCT HCG, URINE Routine 08/19/2019 8:25 AM CDT BASIC METABOLIC PANEL STAT 08/19/2019 8:25 AM CDT URINALYSIS AND REFLEX TO MICROSCOPIC AND CULTURE STAT 08/19/2019 8:24 AM CDT documented in this encounter Results * XR Chest 1 Vw Portable (08/19/2019 8:53 AM CDT) Anatomical Region Laterality Modality Body, Chest N/A Computed Radiogr aphy 08/19/2019 8:58 AM CDT Impressions 08/19/2019 8:59 AM CDT 1. No acute cardiopulmonary process. Electronically signed by: Dilan Trejo M.D. Narrative 08/19/2019 8:59 AM CDT EXAMINATION: XR CHEST 1 VIEW HISTORY: weakness. FINDINGS: Single view submitted with comparison 06/22/2019. The lungs are clear without focal consolidation or pneumothorax. The heart size is within normal limits. Procedure Note Dilan Trejo MD - 08/19/2019 EXAMINATION: XR CHEST 1 VIEW HISTORY: weakness. FINDINGS: Single view submitted with comparison 06/22/2019. The lungs are clear without focal consolidation or pneumothorax. The heart size is within normal limits. IMPRESSION: 1. No acute cardiopulmonary process. Electronically signed by: Dilan Trejo M.D. us Michael Alvarado MD IMG XR PROCEDURES Final Resu lt * N. gonorrhoeae/C. trachomatis Amplification Vaginal (08/19/2019 8:44 AM CDT) C. trachomatis Not detected Not detected [facility] ([place]) Comment:Testing performed by : [facility], [address] [place] [address]., [id number] N. gonorrhoeae Not detected Not detected [facility] ([place]) Comment: Testing performed by the [facility]. This assay detects Chlamydia trachomatis and Neisseria gonorrhoeae by nucleic acid amplification testing (NAAT). This test is approved by the [facility] Food and Drug Administration and the performance characteristics have been verified by the laboratory. The performance characteristics of this test have not been evaluated in women or individuals less than 16 years of age. Testing performed by: [facility], [address] [place] [address]., [id number] Vaginal (None) 08/19/2019 8: 44 AM CDT 08/19/2019 2:13 PM CDT Michael Alvarado MD LAB MICROBIOLOGY - GENERAL O RDERABLES Final Result [facility] ([place]) 1 [facility] [place] [address] * Gram stain yeast Vaginal (08/19/2019 8:44 AM CDT) Direct Specimen Exam Stain: No Yeast or Fungal elements seen [facility] ([place]) Vaginal 08/19/2019 8:44 AM CDT 08/19/2019 8:49 AM CDT Michael Alvarado MD LAB MICROBIOLOGY - GENERAL O RDERABLES Final Result [facility] ([place]) 1 [facility] [place] [address] * (ABNORMAL) Trichomonas antigen detection Vaginal (08/19/2019 8:44 AM CDT) Report Final Report: Positi ve Trichomonas Antigen detected (.) [facility] ([place]) Vaginal 08/19/2019 8:44 AM CDT 08/19/2019 8:49 AM CDT us Michael Alvarado MD LAB MICROBIOLOGY - GENERAL O RDERABLES Final Result Performing Organization Address [facility] Co de Phone Number [facility] ([place]) 1 [facility] [place] [address] * eGFR (08/19/2019 8:25 AM CDT) eGFR 122 mL/min/1.7 3 m2 [facility] ([place]) Comment: Interpretive Data Reference Interval Normal ?>/= 90 mL/min/1.73m2 Mildly decreased* ? 60 - 89 mL/min/1.73m2 Mildly to moderately decreased ?45 - 59 mL/min/1.73m2 Moderately to severely decreased ??30 - 44 mL/min/1.73m2 Severely decreased ?15 - 29 mL/min/1.73m2 Kidney Failure ?< 15 ??mL/min/1.73m2 *Relative to young adult level If -Ch[place] multiply value by 1.16. Estimated glomerular filtration [...] was last reviewed 2015. Blood specimen (specimen) 08/19/2019 8:25 AM CDT 08/19/2019 8:29 AM CDT us Michael Alvarado MD LAB BLOOD ORDERABLES Final R esult Performing Organization Address City/[facility]/ZIP Co de Phone Number [facility] ([place]) 1 [facility] Department [place] [address] * (ABNORMAL) Differential, auto (08/19/2019 8:25 AM CDT) Neutrophil abs 6.6(H) 1.7 - 6.5 K/cumm [facility] ([place]) Imm gran abs 0.0 0.0 - 0.1 K/cumm [facility] ([place]) Lymphocyte abs 1.5 0.8 - 3.3 K/cumm [facility] ([place]) Monocyte abs 0.6 0.2 - 0.8 K/cumm [facility] ([place]) Eosinophil abs 0.1 0.0 - 0.5 K/cumm [facility] ([place]) Basophil abs 0.0 0.0 - 0.1 K/cumm [facility] ([place]) Neutrophil pct 75.1 % [facility] ([place]) Comment: Interpretive [...] was last revised on 2017. Lymphocyte pct 17.1 % [facility] ([place]) Comment: Interpretive Data Percent cell count reference ranges are not reported, since discordance with absolute values may lead to misinterpretation of CBC data. Current Interpretive Data was last revised on 2017. Monocyte pct 6.5 % [facility] ([place]) Comment: Interpretive Data [...] last revised on 2017. Blood specimen (specimen) 08/19/2019 8:25 AM CDT 08/19/2019 8:29 AM CDT Michael Alvarado MD LAB BLOOD ORDERABLES Final R esult [facility] ([place]) 1 [facility] Department [place] [address] * POCT hCG, urine (08/19/2019 8:25 AM CDT) HCG, ur, POC Negative Lot Number [id number] QC Backgroud Clear Acceptable QC Control Line Acceptable Urine 08/19/2019 8:25 AM CDT Michael Alvarado MD POINT OF CARE TEST ORDERABLE S Final Result * Basic metabolic panel (08/19/2019 8:25 AM CDT) Sodium 138 135 - 145 mmol/L [facility] ([place]) Potassium, pl 3.8 3.3 - 4.9 mmol/L [facility] ([place]) Chloride 101 97 - 110 mmol/L [facility] ([place]) CO2 27 22 - 32 mmol/L [facility] ([place]) Anion gap 10 2 - 15 mmol/L [facility] ([place]) BUN 10 8 - 25 mg/dL [facility] ([place]) Creatinine 0.64 0.60 - 1.10 mg/dL [facility] ([place]) Glucose 87 70 - 199 mg/dL [facility] ([place]) Comment: Interpretive Data Fasting glucose >/= [...] mg/dL [facility] ([place]) Blood specimen (specimen) 08/19/2019 8:25 AM CDT 08/19/2019 8:29 AM CDT us Michael Alvarado MD LAB BLOOD ORDERABLES Final R esult [facility] ([place]) 1 [facility] Department [place] [address] * (ABNORMAL) CBC with auto differential (08/19/2019 8:25 AM CDT) WBC 8.8 3.8 - 9.9 K/cumm [facility] ([place]) Hgb 11.0(L) 11.9 - 15.5 g/dL [facility] ([place]) Hct 34.9(L) 35.6 - 45.5 % [facility] ([place]) Plt 324 150 - 400 K/cumm [facility] ([place]) MPV 9.2 9.1 - 12.3 fL [facility] ([place]) RBC 3.89(L) 3.90 - 5.20 M/cumm [facility] ([place]) MCV 89.7 81.3 - 96.4 fL [facility] ([place]) MCH 28.3 27.1 - 33.3 pg [facility] ([place]) MCHC 31.5(L) 32.3 - 35.7 g/dL [facility] ([place]) RDW CV 13.9 11.1 - 14.9 % [facility] ([place]) RDW SD 45.0 35.7 - 48.1 fL [facility] ([place]) NRBC abs 0.00 0.00 - 0.01 K/cumm [facility] ([place]) Blood specimen (specimen) 08/19/2019 8:25 AM CDT 08/19/2019 8:29 AM CDT us Michael Alvarado MD LAB BLOOD ORDERABLES Final R esult Performing Organization Address City/[facility]/ZIP Co de Phone Number [facility] ([place]) 1 [facility] Department [place] [address] * Urinalysis reflex to microscopic and culture Urine (08/19/2019 8:24 AM CDT) Color, ur Yellow Yellow [facility] ([place]) Clarity, ur Clear Clear [facility] ([place]) Specific gravity, ur 1.017 1.010 - 1.025 [facility] ([place]) pH, urine 7.0 [facility] ([place]) Protein, ur ql Trace [...] culture not met. [facility] ([place]) Urine 08/19/2019 8:24 AM CDT 08/19/2019 8:29 AM CDT Narrative [facility] ([place]) - 08/19/2019 8:32 AM CDT ?? Urine pH is affected by diet, medications, systemic acid-base disturbances, and renal tubular function. ??pH may affect urinary stone formation. ??For example, urine pH below 6.0 may help reduce the tendency for calcium phosphate stones and pH greater than 6.0 may reduce the tendency for uric acid stone formation. Source: Aniika. Last revised 03-08-2017 us Michael Alvarado MD LAB MICROBIOLOGY - GENERAL O RDERABLES Final Result [facility] ([place]) 1 [facility] Department [place] [address] documented in this encounter Visit Diagnoses Diagnosis Trichomonas vaginalis infection- Primary Trichomonal vulvovaginitis STD exposure documented in this encounter Administered Medications Inactive Administered Medications - up to 3 most recent administrations Medication Order MAR Action Action Date Dose Rate Site acetaminophen (TYLENOL) tablet 1,000 mg 1,000 mg, oral, Once, On Sun08/19/19 at 0918, For 1 dose Given 08/19/2019 9:23 AM CDT 1,000 mg azithromycin (ZITHROMAX) tablet 1,000 mg 1,000 mg, oral, Once, On Sun08/19/19 at 0953, For 1 dose, Indications: Pneumonia, Community Acquired, Sexually Transmitted InfectionIndications:Pneum onia, Community Acquired,Sexually Transmitted Infection Given 08/19/2019 10:24 AM CDT 1,000 mg cefTRIAXone (ROCEPHIN) 250 mg/mL intramuscular injection 250 mg 250 mg, intramuscular, Once, On Sun08/19/19 at 0953, For 1 dose, Dilute vial with 0.9 mL of sterile water for a concentration of 250 mg/mL., Indications: Sexually Transmitted InfectionIndications:Sexua lly Transmitted Infection Given 08/19/2019 10:24 AM CDT 250 mg Left Dorsogluteal/But tock metroNIDAZOLE (FLAGYL) tablet 2,000 mg 2,000 mg, oral, Once, On Sun08/19/19 at 0926, For 1 dose, Indications: Sexually Transmitted InfectionIndications:Sexua lly Transmitted Infection Given 08/19/2019 10:23 AM CDT 2,000 mg ondansetron ODT (ZOFRAN-ODT) disintegrating tablet 4 mg 4 mg, oral, Once, On Sun08/19/19 at 0954, For 1 dose, Indications: Nausea, VomitingIndications:Nausea ,Vomiting Given 08/19/2019 10:24 AM CDT 4 mg documented in this encounter Active and Recently Administered Medications Times are shown in CDT. Scheduled Medication Order 08/17/2019 08/18/2019 08/19/2019 acetaminophen (TYLENOL) tablet 1,000 mg (COMPLETED) 1,000 mg, oral, Once, On Sun08/19/19 at 0918, For 1 dose 0923 (Given - Provid er: Dougie Cruz RN) azithromycin (ZITHROMAX) tablet 1,000 mg (COMPLETED) 1,000 mg, oral, Once, On Sun08/19/19 at 0953, For 1 dose, Indications: Pneumonia, Community Acquired, Sexually Transmitted Infection 1024 (Given - Provid er: Dougie Cruz RN) cefTRIAXone (ROCEPHIN) 250 mg/mL intramuscular injection 250 mg (COMPLETED) 250 mg, intramuscular, Once, On Sun08/19/19 at 0953, For 1 dose, Dilute vial with 0.9 mL of sterile water for a concentration of 250 mg/mL., Indications: Sexually Transmitted Infection 1024 (Given - Provid er: Dougie Cruz RN) metroNIDAZOLE (FLAGYL) tablet 2,000 mg (COMPLETED) 2,000 mg, oral, Once, On Sun08/19/19 at 0926, For 1 dose, Indications: Sexually Transmitted Infection 1023 (Given - Provid er: Dougie Cruz RN) ondansetron ODT (ZOFRAN-ODT) disintegrating tablet 4 mg (COMPLETED) 4 mg, oral, Once, On Sun08/19/19 at 0954, For 1 dose, Indications: Nausea, Vomiting 1024 (Given - Provid er: Dougie Cruz RN) documented in this encounter Care Teams Block Captain Relationship Specialty [place] [address] [address] [address] PCP - General 07/04/19 [place] [address] [address] [address] 11/16/18 documented as of this encounter
--- OUTSIDE RECORDS SUMMARY | 2024-02-24 20:14 | XMS_ITS | Encounter Summary ---
Author Organization [facility] Healthcare Address [address] [place] [address] Care Team Providers Care Trading Specialist Name Role Phone Huseyin Dangelo MD Unavailable [phone] Brian Mon MD Primary Care Provider + Reason for Referral * Diagnostic Imaging (Emergency) - Closed Specialty Diagnoses / Procedures Referred By Contac t Referred To Contact Radiology Diagnoses Lupus cerebritis (HCC) Procedures MRI Brain W WO Contrast [place] Delarosa MD [address] [place] [address] [address] Phone: tel: fax: [place] [phone] [place] [address] Referral ID Status Reason Start Date Expiration Date Visits Re quested Visits Authorized [id number] Closed 09/19/2019 11/03/2019 1 1 Reason for Visit * Diagnostic Imaging (Emergency) - Closed Specialty Diagnoses / Procedures Referred By Contac t Referred To Contact Radiology Diagnoses Lupus cerebritis (HCC) Procedures MRI Brain W WO Contrast [place] Delarosa MD [address] [place] [address] [address] Phone: tel: fax: [place] [phone] [place] [address] Referral ID Status Reason Start Date Expiration Date Visits Re quested Visits Authorized [id number] Closed 09/19/2019 11/03/2019 1 1 Encounter Details Date Type Department Care Team (Latest Contact Info) Description 09/24/2019 7:28 AM CDT - 09/24/2019 11:59 PM CDT Hospital Encounter [facility] Imaging [address] [address] [place] Delarosa MD [address] [place], [place] [id number] Lupus cerebritis (CMS/HCC) Discharge Disposition: Discharge to home or [...] Priority Date/Time Associated Diagnosis Comments MRI BRAIN W WO CONTRAST STAT 09/24/2019 8:07 AM CDT Lupus cerebritis (CMS/HCC) documented in this encounter Results * MRI Brain W [...] signed by: Gertrude Child M.D. [facility] Mabel Delarosa MD IM MRI PROCEDURES Final R esult documented in this encounter Visit Diagnoses Diagnosis Lupus cerebritis (HCC) documented in this encounter Administered Medications Inactive Administered Medications - up to 3 most recent administrations Medication Order MAR Action Action Date Dose Rate Site gadoterate meglumine (DOTAREM) 0.5 mmol/mL injection 15.06 mL 15.06 mL (0.1 mmol/kg ? 75.3 kg), intravenous, Once in imaging, contrast, Starting on Sun09/24/19 at 0745, For 1 dose, Imaging Protocol Orders Given 09/24/2019 8:07 AM CDT 15.06 mL sodium chloride 0.9% flush 125 mL 125 mL, intravenous, Once in imaging, line care, Starting on Sun09/24/19 at 0744, For 1 dose Given 09/24/2019 8:08 AM CDT 125 mL documented in this encounter Additional Health Concerns Infection Onset Date Last Indicated Resolved Time Exposure, COVID-19 Comment:Added automatically based on COVID19 lab answers indicating exposure risk 09/11/2019 09/11/2019 09/26/2019 3:05 AM C DT documented as of this encounter Care Teams Trading Specialist Relationship Specialty [place] [address] [address] [place] [id number] [place] [address] PCP - General 07/04/19 [place] [address] [address] [facility] [place] [address] 11/16/18 documented as of this encounter
--- OUTSIDE RECORDS SUMMARY | 2024-02-24 20:15 | XMS_ITS | Encounter Summary ---
Author Organization [facility] Healthcare Address [address] [place] [address] Care Team Providers Care Inspector Scales Name Role Phone Huseyin Dangelo MD Unavailable [phone] Brian Mon MD Primary Care Provider + Reason for Visit * Reason Comments Abdominal Pain Encounter Details Date Type Department Care Team (Late st Contact Info) Description 07/15/2019 3:06 AM CDT - 07/15/2019 5:55 AM CDT Emergency [facility] Emergency Department [address] [place] [address] Rishi Perry MD [address] [place] [address] Right upper quadrant abdominal pain (Primary Dx) Discharge Disposition: Discharge to home [...] Sign Reading Time Taken Comments Blood Pressure 139/86 07/15/2019 5:00 AM CDT Pulse 80 07/15/2019 5:00 AM CDT Temperature 36.7 ??C (98.1 ??F) 07/15/2019 3:12 AM CD T Respiratory Rate 16 07/15/2019 3:48 AM CDT Oxygen Saturation 98% 07/15/2019 5:00 AM CDT Inhaled Oxygen Concentration - - Weight 70.3 kg (155 lb) 07/15/2019 3:12 AM CDT Height 157.5 cm (5' 2 ) 07/15/2019 3:12 AM CDT Body Mass Index 28.35 07/15/2019 3:12 AM CDT documented in this encounter Discharge Diagnoses Diagnosis Right upper quadrant pain - RIGHT UPPER QUADRANT PAIN Abdominal pain, right upper quadrant Nausea with vomiting, unspecified - NAUSEA WITH VOMITING, UNSPECIFIED Diarrhea, unspecified - DIARRHEA, UNSPECIFIED Dorsalgia, unspecified - DORSALGIA, UNSPECIFIED Systemic lupus erythematosus, unspecified (HCC) - SYSTEMIC LUPUS ERYTHEMATOSUS, UNSPECIFIED Chronic kidney disease, unspecified - CHRONIC KIDNEY DISEASE, UNSPECIFIED Rheumatoid arthritis, unspecified (HCC) - RHEUMATOID ARTHRITIS, UNSPECIFIED Major depressive disorder, single episode, unspecified - MAJOR DEPRESSIVE DISORDER, SINGLE EPISODE, UNSPECIFIED documented in this encounter Discharge Instructions * Discharge Instructions* Rishi Perry MD - 07/15/2019 5:34 AM CDT Take Bentyl as directed. Call and schedule a colonoscopy as soon as you can. * Attachments The following attachments cannot be sent through Care Everywhere. * Acute Abdominal Pain (Admin Assistant) (Uzbek) documented in this encounter Medications at Time of Discharge albuterol (PROAIR RESPICLICK) 90 mcg/actuation inhalerIndications:Ac pechanga Asthma Attack Inhale 2 puffs every 6 (six) hours as needed for wheezing 0 ALPRAZolam (XANAX) 0.25 mg tablet Take 0.25 mg by mouth 3 (three) times a day as needed 1 aluminum-magnesium hydroxide-simethicone & diphenhydramine 1:1 (MAGIC MOUTHWASH) suspension Take 10 mL by mouth every 8 (eight) hours as needed (mouth ulcers) Swish and spit every 8 hours as needed for mouth pain. 240 mL 06/22/2019 0 dicyclomine (BENTYL) 20 mg tablet Take 1 tablet (20 mg total) by mouth 2 (two) times a day for 14 days 28 tablet 07/15/2019 0 diphenoxylate-atropin e (LOMOTIL) 2.5-0.025 mg per tabletIndications:taylor rrhea Take 1 tablet by mouth 4 (four) times a day as needed for diarrhea 20 tablet 05/28/2019 0 ergocalciferol (VITAMIN D) 50,000 unit capsule TAKE 1 CAPSULE BY MOUTH ONE TIME PER WEEK 06/21/2019 1 escitalopram (LEXAPRO) 10 mg tablet Take 10 mg by mouth daily 07/11/2019 0 hydroxychloroquine (PLAQUENIL) 200 mg tablet Take 100 mg by mouth nightly 0 hydrOXYzine (ATARAX) 10 mg tablet Take 1 tablet (10 mg total) by mouth 3 (three) times a day as needed for anxiety 30 tablet 07/10/2019 0 ketorolac (TORADOL) 10 mg tablet Take 1 tablet (10 mg total) by mouth 4 (four) times a day as needed for pain Take with food. 20 tablet 07/04/2019 0 omeprazole (PriLOSEC) 20 mg capsule Take 20 mg by mouth daily 06/21/2019 1 ondansetron ODT (ZOFRAN-ODT) 4 mg disintegrating tablet Dissolve 1 tablet oral every 6 hours as needed for nausea or vomiting. 6 tablet 05/28/2019 0 predniSONE (DELTASONE) 1 mg tablet Please take 2 tablets at night for 2 weeks and then 1 tablet at night for 2 weeks and stop 50 tablet 07/02/2019 0 predniSONE (DELTASONE) 5 mg tabletIndications:aut oimmune disease Take 12.5 mg by mouth daily 0 documented as of this encounter Ordered Prescriptions Prescription Sig Dispense Quantity Refills Last Filled Start Date End Date dicyclomine (BENTYL) 20 mg tablet Take 1 tablet (20 mg total) by mouth 2 (two) times a day for 14 days 28 tablet 07/15/2019 07/21/2019 documented in this encounter Discharge Disposition Disposition Code Departure Means Destination Discharge to home or self care documented in this encounter ED Notes * Rishi Perry MD - 07/15/2019 3:18 AM CDTAssociated Order(s): ECG 12 lead HPI Chief Complaint Patient presents with ??? Abdominal Pain HPI 3:20 AM Carito Rausch is a 29 y.o. female nonsmoker with a h/o lupus, anemia, CKD, RA, fibromyalgia, and depression who presents to the ED with intermittent 8/10 right-sided abdominal pain radiating to her chest, arm, and back for 2 days. Associated symptoms include nausea, vomiting, diarrhea, and green stool. Patient states her symptoms are exacerbated by eating. She denies fever, sore throat, and SOB. She denies sick contact. She reports h/o appendectomy, but denies other abdominal surgery. She reports she recently started taking lexapro, and has been taking hydroxychloroquine for 2 years. She denies drinking alcohol. No other complaints at this time. Per chart review: Patient has presented to ED multiple times with various medical complaints. Patient History Past Medical History: Diagnosis Date ??? [...] ??? Heart disease Father ??? Stroke Father Social History Tobacco Use ??? Smoking status: Never Smoker ??? Smokeless tobacco: Never Used Substance Use Topics ??? Alcohol use: Not Currently ??? Drug use: Never Review of Systems Review of Systems Constitutional: Negative for chills and fever. HENT: Negative for ear pain and sore throat. Eyes: Negative for pain and visual disturbance. Respiratory: Negative for cough and shortness of breath. Cardiovascular: Negative for chest pain and palpitations. Gastrointestinal: Positive for abdominal pain, diarrhea, nausea and vomiting. Green stool Genitourinary: Negative for dysuria and hematuria. Musculoskeletal: Positive for back pain. Negative for arthralgias. Skin: Negative for color change and rash. Neurological: Negative for seizures and syncope. All other systems reviewed and are negative. Physical Exam ED Triage Vitals Temp Pulse Resp BP SpO2 07/15/19 0312 07/15/19 0312 07/15/19 0312 07/15/19 03107/15/19 031 36.7 ??C (98.1 ??F) 93 18 140/100 100 % Temp src Heart Rate Source Patient Position BP Location FiO2 (%) 07/15/19 031 -- 07/15/19 0348 07/15/19 0348 -- Temporal Sitting Left arm Physical Exam Vitals signs and nursing note reviewed. Constitutional: General: She is not in acute distress. Appearance: She is well-developed. HENT: Head: Normocephalic and atraumatic. Ears: Comments: Normal Nose: Nose normal. Mouth/Throat: Comments: Normal Eyes: Conjunctiva/sclera: Conjunctivae normal. Neck: Musculoskeletal: Neck supple. Cardiovascular: Rate and Rhythm: Normal rate and regular rhythm. Heart sounds: Normal heart sounds. No murmur. Pulmonary: Effort: Pulmonary effort is normal. No respiratory distress. Breath sounds: Normal breath sounds. Abdominal: General: Bowel sounds are normal. There is no distension. Palpations: Abdomen is soft. Tenderness: There is abdominal tenderness in the epigastric area. There is no guarding. Skin: General: Skin is warm and dry. Neurological: Mental Status: She is alert and oriented to person, place, and time. ECG 12 lead Date/Time: 07/15/2019 3:25 AM Performed by: Rishi Perry MD Authorized by: Rishi Perry MD Rate: ECG rate: 81 ECG rate assessment: normal Rhythm: Rhythm: sinus rhythm Interpretation: Interpretation: No acute injury pattern MDM Labs Reviewed URINALYSIS AND REFLEX TO MICROSCOPIC AND CULTURE - Abnormal Result Value Color, ur Yellow Clarity, ur Clear Specific gravity, ur 1.025 pH, urine 6.5 Protein, ur ql 1+ (*) Glucose, ur ql Negative Ketones, ur Negative Bilirubin, ur Negative Blood, ur Negative Urobilinogen, ur <2.0 Nitrite, ur Negative Leukocyte esterase, ur Negative UA reflex comment Reflex to microscopic UA will be performed. Narrative: Urine pH is affected by diet, medications, systemic acid-base disturbances, and renal tubular function. pH may affect urinary stone formation. For example, urine pH below 6.0 may help reduce the tendency for calcium phosphate stones and pH greater than 6.0 may reduce the tendency for uric acid stone formation. Source: [employer].Last revised 03-08-2017 CBC WITH AUTO DIFFERENTIAL - Abnormal WBC 8.7 Hgb 12.0 Hct 37.6 Plt 358 MPV 9.2 RBC 4.19 MCV 89.7 MCH 28.6 MCHC 31.9 (*) RDW CV 15.0 (*) RDW SD 49.0 (*) NRBC abs 0.00 DIFFERENTIAL AUTO - Abnormal Neutrophil abs 6.6 (*) Imm gran abs 0.1 Lymphocyte abs 1.5 Monocyte abs 0.5 Eosinophil abs 0.1 Basophil abs 0.0 Neutrophil pct 75.2 Imm gran pct 0.7 Lymphocyte pct 17.5 Monocyte pct 5.9 Eosinophil pct 0.6 Basophil pct 0.1 URINALYSIS, MICROSCOPIC ONLY - Abnormal WBC, ur 0-5 RBC, ur 0-2 Epithelial cells, squamous, ur 1-5 Bacteria, ur Trace (*) Mucous, ur Present (*) Culture Reflex Comment Value: Reflex conditions for urine culture (WBC >10) not met. POCT HCG, URINE - Normal HCG, ur, POC Negative Lot Number [id number] QC Backgroud Clear Acceptable QC Control Line Acceptable LIPASE Lipase 32 APTT aPTT 25 COMPREHENSIVE METABOLIC PANEL Sodium 139 Potassium, pl 4.0 Chloride 100 CO2 26 Anion gap 13 BUN 15 Creatinine 0.62 Glucose 108 Calcium 9.0 Bilirubin, total 0.2 Protein, pl 7.1 Albumin 4.1 Alk phos 45 ALT 9 AST 14 PROTIME-INR PT 10.9 INR 1.0 TROPONIN T Troponin T <0.[address] Abdomen Pelvis W Contrast Final Result BP 139/86 Pulse 80 Temp 36.7 ??C (98.1 ??F) (Temporal) Resp 16 Ht 157.5 cm (5' 2 ) Wt 70.3 kg (155 lb) SpO2 98% BMI 28.35 kg/m?? MDM Number of Diagnoses or Management Options Right upper quadrant abdominal pain: Amount and/or Complexity of Data Reviewed Clinical lab tests: ordered and reviewed Tests in the radiology section of CPT??: reviewed and ordered Tests in the medicine section of CPT??: ordered and reviewed Risk of Complications, Morbidity, and/or Mortality Presenting problems: moderate Diagnostic procedures: moderate Management options: moderate General comments: Patient with multiple ER visits presents with right upper quadrant pain, concern for gallbladder. Differential diagnosis includes gallbladder, colitis, adhesions, UTI. Labs are normal. CT shows only a nodule in the liver which is small. It will need follow-up. I informed the patient. Patient did not get her Bentyl filled that Dr. Gomez prescribed. Will have her start Bentyl. She needs a colonoscopy. Patient Progress Patient progress: stable ED Course as of Jul 14 537 Time: 07/14 412 Comment: Patient did not want opiate pain medication. By: Rishi Perry MD Right upper quadrant abdominal pain This note is prepared by Soni Dietz, acting as a scribe for Rishi Perry MD. I electronically signed this note at 5:38 AM on 07/15/2019. I, Rishi Perry MD, have personally performed the services described in the documentation, reviewed the documentation, as recorded by the scribe in my presence, and it accurately and completely records my words and actions. Rishi Perry MD 07/15/19 0557 * Leti Gutierres RN - 07/15/2019 3:11 AM CDT Pt to er 3 c/o RUQ/mid ab pain x 2 days. Pt has been seen multiple times here and other ERs for same c/o. Pt states pain worse this time. States woke her up and going down her arm and into back. Pt also c/o n/v/d. Pt states worse after eating pizza last night. documented in this encounter Plan of Treatment Not on file documented as of this encounter Procedures Procedure Name Priority Date/Time Associated Diagnosis Comments CT ABDOMEN PELVIS W CONTRAST ED 07/15/2019 4:38 AM CDT POCT HCG, URINE Routine 07/15/2019 3:39 AM CDT URINALYSIS AND REFLEX TO MICROSCOPIC AND CULTURE STAT 07/15/2019 3:36 AM CDT URINALYSIS, MICROSCOPIC ONLY STAT 07/15/2019 3:36 AM CDT ECG 12-LEAD Routine 07/15/2019 3:25 AM CDT EGFR STAT 07/15/2019 3:23 AM CDT DIFFERENTIAL AUTO STAT 07/15/2019 3:2 3 AM CDT CBC WITH AUTO DIFFERENTIAL STAT 07/15/2019 3:23 AM CDT APTT STAT 07/15/2019 3:23 AM CDT PROTIME-INR STAT 07/15/2019 3:23 AM CDT TROPONIN T STAT 07/15/2019 3:23 AM CDT LIPASE STAT 07/15/2019 3:23 AM CDT COMPREHENSIVE METABOLIC PANEL STAT 07/15/2019 3:23 AM CDT documented in this encounter Results * CT Abdomen Pelvis W Contrast (07/15/2019 4:38 AM CDT) Anatomical Region Laterality Modality Body N/A Computed Tomogra phy 07/15/2019 4:31 AM CDT Narrative 07/15/2019 5:25 AM CDT [facility] ?Imaging Result Name: CARITO RAUSCH ? Ordering Phys: RISHI PERRY Age: 29 ?Date of : 1990 ? Accession Number: [id number] Date of Service: 07/15/2019 ??Gender: F EXAM DESCRIPTION: ?? CT ABDOMEN PELVIS W CONTRAST REASON FOR STUDY: ?? Right upper quadrant abdominal pain for 2 days TECHNIQUE: ??CT scan of the abdomen and pelvis performed with intravenous and without oral contrast using helical scanning technique with dynamic intravenous contrast injection. Reconstructed coronal and sagittal MPR images reviewed. All images stored on PACS. Automated exposure control was used as a dose optimization technique for this examination. CONTRAST TYPE/DOSE: ?? 100 mL Optiray 320 injected via ??right antecubital fossa COMPARISON: ?? None available ??LOWER CHEST: ??No significant pulmonary abnormalities. No effusion. LIVER: ??Normal size. ??Subtle enhancing focus measures 11 mm in greatest dimension within the right hepatic lobe at the dome at axial image 16, nonspecific. GALLBLADDER: ??No stones identified. No wall thickening or inflammatory changes. BILE DUCTS: ??No intrahepatic or extrahepatic ductal dilatation. SPLEEN: ??Normal size. ??No focal lesions. PANCREAS: ??No identified cystic or solid masses. No significant calcifications. No adjacent inflammation or peripancreatic fluid collections. Pancreatic duct not dilated. ADRENALS: ??Normal. KIDNEYS/URINARY TRACT: ??No identified significant cystic or solid masses. No visible stones. ??No hydronephrosis or hydroureter. Symmetric enhancement. Urinary bladder is unremarkable. GI: ??No dilated bowel loops. No obvious wall thickening. ??Postoperative change at the cecum. ??No significant diverticular disease. PERITONEUM: ??No ascites or free air. RETROPERITONEUM: ??No mass or adenopathy. REPRODUCTIVE: ??There is a hypodensity with peripheral enhancement at the right adnexa which is probably physiologic measuring approximately 1.7 cm in greatest dimension. ??The left adnexal soft tissues and uterus are unremarkable. VASCULATURE: ??No abdominal aortic aneurysm. MUSCULOSKELETAL: ??No significant abnormality. OTHER: ??No other abnormality. ?? Suspected physiologic lesion at the right adnexa. Subtle enhancing 11 mm nodule within the liver, indeterminate. ??Follow-up would be helpful. ??Consider sonogram. THIS IS AN ELECTRONICALLY VERIFIED FINAL REPORT 07/15/2019 5:21 AM - Electronically signed by Leti June M.D. JS: JAMES D: ??07/15/2019 5:21 AM T: ??07/15/2019 5:21 AM Report ID: [id number] Reading Location: ??[id number] Procedure Note Leti June MD - 07/15/2019 [facility] Imaging Result Name: JERROD CARITO Dianelys Ordering Phys: RISHI PERRY Age: 29 Date of : 1990 Accession Number: [id number] Date of Service: 07/15/2019 Gender: F EXAM DESCRIPTION: CT ABDOMEN PELVIS W CONTRAST REASON FOR STUDY: Right upper quadrant abdominal pain for 2 days TECHNIQUE: CT scan of the abdomen and pelvis performed with intravenousand without oral contrast using helical scanning technique with dynamic intravenous contrast injection. Reconstructed coronal and sagittal MPRimages reviewed. All images stored on PACS. Automated exposure control was used as a dose optimization technique forthis examination. CONTRAST TYPE/DOSE: 100 mL Optiray 320 injected via right antecubitalfossa COMPARISON: None available LOWER CHEST: No significant pulmonary abnormalities. No effusion. LIVER: Normal size. Subtle enhancing focus measures 11 mm in greatest dimension within the right hepatic lobe at the dome at axial image 16, nonspecific. GALLBLADDER: No stones identified. No wall thickening or inflammatorychanges. BILE DUCTS: No intrahepatic or extrahepatic ductal dilatation. SPLEEN: Normal size. No focal lesions. PANCREAS: No identified cystic or solid masses. No significant calcifications. No adjacent inflammation or peripancreatic fluidcollections. Pancreatic duct not dilated. ADRENALS: Normal. KIDNEYS/URINARY TRACT: No identified significant cystic or solid masses.No visible stones. No hydronephrosis or hydroureter. Symmetricenhancement. Urinary bladder is unremarkable. GI: No dilated bowel loops. No obvious wall thickening. Postoperativechange at the cecum. No significant diverticular disease. PERITONEUM: No ascites or free air. RETROPERITONEUM: No mass or adenopathy. REPRODUCTIVE: There is a hypodensity with peripheral enhancement at theright adnexa which is probably physiologic measuring approximately 1.7 cm in greatest dimension. The left adnexal soft tissues and uterus areunremarkable. VASCULATURE: No abdominal aortic aneurysm. MUSCULOSKELETAL: No significant abnormality. OTHER: No other abnormality. Suspected physiologic lesion at the right adnexa. Subtle enhancing 11 mm nodule within the liver, indeterminate.Follow-up would be helpful. Consider sonogram. THIS IS AN ELECTRONICALLY VERIFIED FINAL REPORT 07/15/2019 5:21 AM - Electronically signed by Leti June M.D. JS: JAMES Report ID: [id number] Reading Location: [place] [address] Rishi Perry MD IMG CT PROCEDURES Final Resu lt * POCT hCG, urine (07/15/2019 3:39 AM CDT) HCG, ur, POC Negative Lot Number [id number] QC Backgroud Clear Acceptable QC Control Line Acceptable Urine 07/15/2019 3:39 AM CDT Rishi Perry MD POINT OF CARE TEST ORDERABLE S Final Result * (ABNORMAL) Urinalysis, microscopic only (07/15/2019 3:36 AM CDT) WBC, ur 0-5 0 - 5 /HPF [facility] ([place]) RBC, ur 0-2 0 - 2 /HPF [facility] ([place]) Epithelial cells, squamous, ur 1-5 0 - 5 /HPF [facility] ([place]) Bacteria, ur Trace(A) [facility] ([place]) Mucous, ur Present(A) [facility] ([place]) Culture Reflex Comment Reflex conditions for urine culture (WBC >10) not met. [facility] ([place]) Urine 07/15/2019 3:36 AM CDT 07/15/2019 3:43 AM CDT Rishi Perry MD LAB URINE ORDERABLES Final R esult Performing Organization Address [facility]/ZIP Co de Phone Number [facility] ([place]) 1 [facility] Department [place] [address] * (ABNORMAL) Urinalysis reflex to microscopic and culture Urine (07/15/2019 3:36 AM CDT) Color, ur Yellow Yellow [facility] ([place]) Clarity, ur Clear Clear [facility] ([place]) Specific gravity, ur 1.025 1.010 - 1.025 [facility] ([place]) pH, urine 6.5 [facility] ([place]) Protein, ur ql 1+(A) [...] will be performed. [facility] ([place]) Urine 07/15/2019 3:36 AM CDT 07/15/2019 3:43 AM CDT Narrative [facility] ([place]) - 07/15/2019 3:45 AM CDT ?? Urine pH is affected by diet, medications, systemic acid-base disturbances, and renal tubular function. ??pH may affect urinary stone formation. ??For example, urine pH below 6.0 may help reduce the tendency for calcium phosphate stones and pH greater than 6.0 may reduce the tendency for uric acid stone formation. Source: [employer]. Last revised 03-08-2017 us Rishi Perry MD LAB MICROBIOLOGY - GENERAL O RDERABLES Final Result [facility] ([place]) 1 [facility] Department [place] [address] * ECG 12 lead (07/15/2019 3:25 AM CDT) 07/15/2019 3:25 AM CDT Narrative [facility] - 07/15/2019 12:42 PM CDT Vent Rate: 81 bpm RR Interval: 733 msec MT Interval: 149 msec QRS Duration: 86 msec QT Interval: 342 msec QTC Interval: 380 msec P-R-T [place]: 22 - 23 - 11 degrees SINUS RHYTHM NORMAL ECG No change from prior each Electronically Signed By: Tristan Edmondson MD us Rishi Perry MD ECG ORDERABLES Final Result [facility] * eGFR (07/15/2019 3:23 AM CDT) eGFR 124 mL/min/1.7 3 m2 [facility] ([place]) Comment: Interpretive Data Reference Interval Normal ?>/= 90 mL/min/1.73m2 Mildly decreased* ? 60 - 89 mL/min/1.73m2 Mildly to moderately decreased ?45 - 59 mL/min/1.73m2 Moderately to severely decreased ??30 - 44 mL/min/1.73m2 Severely decreased ?15 - 29 mL/min/1.73m2 Kidney Failure ?< 15 ??mL/min/1.73m2 *Relative to young adult level If -Algerian multiply value by 1.16. Estimated glomerular filtration [...] was last reviewed 2015. Blood specimen (specimen) 07/15/2019 3:23 AM CDT 07/15/2019 3:25 AM CDT us Rishi Perry MD LAB BLOOD ORDERABLES Final R esult [facility] ([place]) 1 [facility] Department [place] [address] * (ABNORMAL) Differential, auto (07/15/2019 3:23 AM CDT) Neutrophil abs 6.6(H) 1.7 - 6.5 K/cumm [facility] ([place]) Imm gran abs 0.1 0.0 - 0.1 K/cumm [facility] ([place]) Lymphocyte abs 1.5 0.8 - 3.3 K/cumm [facility] ([place]) Monocyte abs 0.5 0.2 - 0.8 K/cumm [facility] ([place]) Eosinophil abs 0.1 0.0 - 0.5 K/cumm [facility] ([place]) Basophil abs 0.0 0.0 - 0.1 K/cumm [facility] ([place]) Neutrophil pct 75.2 % [facility] ([place]) Comment: Interpretive Data Percent cell count reference ranges are not reported, since discordance with absolute values may lead to misinterpretation of CBC data. Current Interpretive Data was last revised on 2017. Imm gran pct 0.7 % [facility] ([place]) Comment: Interpretive Data Percent cell count reference ranges are not reported, since discordance with absolute values may lead to misinterpretation of CBC data. Current Interpretive Data was last revised on 2017. Lymphocyte pct 17.5 % [facility] ([place]) Comment: Interpretive Data Percent cell count reference ranges are not reported, since discordance with absolute values may lead to misinterpretation of CBC data. Current Interpretive Data was last revised on 2017. Monocyte pct 5.9 % [facility] ([place]) Comment: Interpretive Data Percent cell count reference ranges are not reported, since discordance with absolute values may lead to misinterpretation of CBC data. Current Interpretive Data was last revised on 2017. Eosinophil pct 0.6 % [facility] ([place]) Comment: Interpretive Data Percent cell count reference ranges are not reported, since discordance with absolute values may lead to misinterpretation of CBC data. Current Interpretive Data was last revised on 2017. Basophil pct 0.1 % [facility] ([place]) Comment: Interpretive Data Percent cell count reference ranges are not reported, since discordance with absolute values may lead to misinterpretation of CBC data. Current Interpretive Data was last revised on 2017. Blood specimen (specimen) 07/15/2019 3:23 AM CDT 07/15/2019 3:25 AM CDT Rishi Perry MD LAB BLOOD ORDERABLES Final R esult Performing Organization Address City/[facility] Co de Phone Number [facility] ([place]) 1 [facility] [place] [address] * Troponin T (07/15/2019 3:23 AM CDT) Troponin T <0.01 0.00 - 0.01 ng/mL [facility] ([place]) Comment: Interpretive Data Reference ranges for children <18 years of age have not been established. - > or = 18 years: Serial determinations are recommended for the diagnosis of myocardial infarction. ??Temporal rise and fall are consistent with myocardial infarction when at least one value is above the 99th percentile upper reference limit for troponin assay. ??Journal of the [place] [employer] 2012;60:1581-98. Current Interpretive Data Last Revised Date: 2017. Blood specimen (specimen) 07/15/2019 3:23 AM CDT 07/15/2019 3:25 AM CDT Rishi Perry MD LAB BLOOD ORDERABLES Final R esult [facility] ([place]) 1 [facility] [place] [address] * Protime-INR (07/15/2019 3:23 AM CDT) PT 10.9 9.5 - 13.0 sec [facility] ([place]) INR 1.0 0.9 - 1.2 [facility] ([place]) Comment: Interpretive data Oral anticoagulant therapeutic ranges: Venous thromboembolism prophylaxis or treatment: 2.0-3.0 CARDIOLOGY Standard range: 2.0-3.0 High-intensity range: 2.5-3.5 Refer to indication-specific guidelines for appropriate target ranges for prosthetic heart valve replacement. Current interpretive data was last revised on 2019. Blood specimen (specimen) 07/15/2019 3:23 AM CDT 07/15/2019 3:25 AM CDT us Rishi Perry MD LAB BLOOD ORDERABLES Final R esult [facility] ([place]) 1 [facility] Department [place] [address] * (ABNORMAL) CBC with auto differential (07/15/2019 3:23 AM CDT) WBC 8.7 3.8 - 9.9 K/cumm [facility] ([place]) Hgb 12.0 11.9 - 15.5 g/dL [facility] ([place]) Hct 37.6 35.6 - 45.5 % [facility] ([place]) Plt 358 150 - 400 K/cumm [facility] ([place]) MPV 9.2 9.1 - 12.3 fL [facility] ([place]) RBC 4.19 3.90 - 5.20 M/cumm [facility] ([place]) MCV 89.7 81.3 - 96.4 fL [facility] ([place]) MCH 28.6 27.1 - 33.3 pg [facility] ([place]) MCHC 31.9(L) 32.3 - 35.7 g/dL [facility] ([place]) RDW CV 15.0(H) 11.1 - 14.9 % [facility] ([place]) RDW SD 49.0(H) 35.7 - 48.1 fL [facility] ([place]) NRBC abs 0.00 0.00 - 0.01 K/cumm [facility] ([place]) Blood specimen (specimen) 07/15/2019 3:23 AM CDT 07/15/2019 3:25 AM CDT us Rishi Perry MD LAB BLOOD ORDERABLES Final R esult [facility] ([place]) 1 [facility] Department [place] [address] * Comprehensive metabolic panel (07/15/2019 3:23 AM CDT) Sodium 139 135 - 145 mmol/L [facility] ([place]) Potassium, pl 4.0 3.3 - 4.9 mmol/L [facility] ([place]) Chloride 100 97 - 110 mmol/L [facility] ([place]) CO2 26 22 - 32 mmol/L [facility] ([place]) Anion gap 13 2 - 15 mmol/L [facility] ([place]) BUN 15 8 - 25 mg/dL [facility] ([place]) Creatinine 0.62 0.60 - 1.10 mg/dL [facility] ([place]) Glucose 108 70 - 199 mg/dL [facility] ([place]) [...] ([place]) AST 14 10 - 45 Units/L [facility] ([place]) Blood specimen (specimen) 07/15/2019 3:23 AM CDT 07/15/2019 3:25 AM CDT Rishi Perry MD LAB BLOOD ORDERABLES Final R esult Performing Organization Address City/[facility] Co de Phone Number [facility] ([place]) 1 [facility] [employer] [place] [address] * aPTT (07/15/2019 3:23 AM CDT) aPTT 25 25 - 37 sec [facility] ([place]) Comment: Interpretive data Heparin therapeutic range: 60-94 seconds Range based on correlation with therapeutic heparin activity range of 0.3-0.7 units/ml. Current interpretive data was last revised on 2019. Blood specimen (specimen) 07/15/2019 3:23 AM CDT 07/15/2019 3:25 AM CDT Rishi Perry MD LAB BLOOD ORDERABLES Final R esult Performing Organization Address [facility] Co de Phone Number [facility] ([place]) [address] [place] [address] * Lipase (07/15/2019 3:23 AM CDT) Lipase 32 10 - 99 Units/L [facility] ([place]) Blood specimen (specimen) 07/15/2019 3:23 AM CDT 07/15/2019 3:25 AM CDT Rishi Perry MD LAB BLOOD ORDERABLES Final R esult Performing Organization Address City/[facility] Co de Phone Number [facility] ([place]) 1 [facility] [employer] [address] documented in this encounter Visit Diagnoses Diagnosis Right upper quadrant abdominal pain- Primary documented in this encounter Administered Medications Inactive Administered Medications - up to 3 most recent administrations Medication Order MAR Action Action Date Dose Rate Site al & mag hydroxide simethicone-lidocaine oral suspension mixture 40 mL, oral, Once, On e 07/15/19 at 0322, For 1 dose Given 07/15/2019 3:32 AM CDT 40 mL ioversoL (OPTIRAY 320) intravenous syringe 100 mL 100 mL, intravenous, Once in imaging, contrast, Starting on Sun07/15/19 at 0430, For 1 dose Given 07/15/2019 4:38 AM CDT 100 mL ondansetron (ZOFRAN) injection 4 mg 4 mg, intravenous, Administer over 2 Minutes, Once, On Sun07/15/19 at 0322, For 1 dose Given 07/15/2019 3:33 AM CDT 4 mg sodium chloride 0.9% infusion 150 mL/hr, intravenous, Continuous, Starting on Sun07/15/19 at 0322 New Bag 07/15/2019 3:32 AM CDT 150 mL/hr 150 mL/hr documented in this encounter Discontinued Medications Medication Sig Discontinue Reason Start Date End Da te dicyclomine (BENTYL) 20 mg tablet Take 1 tablet (20 mg total) by mouth 2 (two) times a day 07/06/2019 07/15/2019 documented as of this encounter Active and Recently Administered Medications Times are shown in CDT. Scheduled Medication Order 07/13/2019 07/14/2019 07/15/2019 al & mag hydroxide simethicone-lidocaine oral suspension mixture (COMPLETED) 40 mL, oral, Once, On Sun07/15/19 at 0322, For 1 dose 0332 (Given - Provid er: Leti Gutierres RN) ondansetron (ZOFRAN) injection 4 mg (COMPLETED) 4 mg, intravenous, Administer over 2 Minutes, Once, On Sun07/15/19 at 0322, For 1 dose 0333 (Given - Provid er: Leti Gutierres RN) Continuous Medication Order 07/13/2019 07/14/2019 07/15/2019 sodium chloride 0.9% infusion 150 mL/hr, intravenous, Continuous, Starting on Sun07/15/19 at 0322 0332 (New Bag - Prov ider: Leti Gutierres RN)[id number] (Stopped - Provider: Juanita eWinstein RN) PRN Medication Order 07/13/2019 07/14/201907/1407/15/2019 ioversoL (OPTIRAY 320) intravenous syringe 100 mL (COMPLETED) 100 mL, intravenous, Once in imaging, contrast, Starting on Sun07/15/19 at 0430, For 1 dose 0438 (Given - Provid er: Denae Hwang, RT) documented in this encounter Additional Health Concerns Infection Onset Date Last Indicated Resolved Time Respiratory Infection (BLANCA), contact + droplet Comment:Automatically added due to negative COVID-19 result. 07/08/2019 07/08/2019 07/22/2019 3:0 5 AM CDT documented as of this encounter Care Teams Inspector Scales Relationship Specialty [place] [id number] [address] [place] [id number] PCP - General 07/04/19 [place] [id number] [address] [place] [id number] 11/16/18 documented as of this encounter
--- OUTSIDE RECORDS SUMMARY | 2024-02-24 20:15 | XMS_ITS | Encounter Summary ---
Author Organization [facility] Address [address] [place] [address] Phone Care Team Providers Care Resources Representative Name Role Phone Huseyin Dangelo MD Unavailable [phone] Brian Mon MD Primary Care Provider + Reason for Visit * Reason Onset Date Comments Joint Pain 07/06/2019 Encounter Details Date Type Department Care Team (Late st Contact Info) Description 07/06/2019 Documentation [facility] Rheumatology [address] Advanced Medicine 5th [place] [address] [place] [address] Tadeo Liriano MD [address] [place] [address] Joint Pain Social History Tobacco Use Types [...] Progress Notes * Tadeo Liriano MD - 07/06/2019 2:23 PM CDT Patient called complaining of joint swelling. Tells me she recently had a visit with Dr Delarosa where she mentioned she was having a flare manifestedby arthralgias in hands and feet and oral ulcers. Dr Delarosa prescribed a steroid burst, starting at 40mg.States she didn't take 40 but instead 30 mg and since then has felt worse. Continues to have oral ulcers and joint pain and has now developed edema, feels like her face, hands and feet are very swollen which prompted her to go to [facility] ED on 07/03. CBC showed baseline anemia Hb 11.4 but otherwise normal, CMP and BNP normal and negative test. Was told it was part of her flare and was given toradol. Today she went again to the ED since the swelling had persisted and had now developed nausea and vomiting. GI symptoms were attributed to NSAIDs, was instructed to stop the toradol and increase prednisone to 40 mg. She was not satisfied with the plan so she called us. Tells me her flare symptoms are the same she's had with previous flares, but this was the first time she had gone up to such high dose of prednisone and developed swelling. Denies fever, chills, rash, nasal ulcers, raynaud's, shortness of breath, cough, abdominal pain, hematuria, dysuria, neurologic deficits or any other symptoms. No recent sick contacts. Plan It seems that she is experiencing edema secondary to high dose of steroids. Recommended decrease inprednisone dose to 20 mg, stop ketorolac and take Tylenol instead for pain and elevate extremities. Reassured her that they are working on getting Benlysta approved. Will forward this note to Dr Delarosa for follow up. documented in this encounter Plan of Treatment Not on file documented as of this encounter Visit Diagnoses Not on filedocumented in this encounter Additional Health Concerns Infection Onset Date Last Indicated Resolved Time COVID: Suspected 06/25/2019 07/07/2019 07/08/2019 2:20 AM CDT documented as of this encounter Care Teams Resources Representative Relationship Specialty [place] [id number] [id number] PCP - General 07/04/19 [place] [id number] [address] 11/16/18 documented as of this encounter
--- OUTSIDE RECORDS SUMMARY | 2024-02-24 20:15 | XMS_ITS | Encounter Summary ---
Author Organization [facility] Healthcare Address [address] [place] [address] Care Team Providers Care Boston Cutter Name Role Phone Huseyin Dangelo MD Unavailable [phone] Brian Mon MD Primary Care Provider + Reason for Visit * Reason Comments Arm Swelling Encounter Details Date Type Department Care Team (Late st Contact Info) Description 07/04/2019 10:14 PM CDT - 07/04/2019 11:46 PM CDT Emergency [facility] Emergency Department [address] [place] [address] Esau Perry MD [address] [place] [address] Edema, unspecified type (Primary Dx) Discharge Disposition: Discharge to home [...] Sign Reading Time Taken Comments Blood Pressure 165/97 07/04/2019 10:28 PM CDT Pulse 98 07/04/2019 10:28 PM CDT Temperature 36.7 ??C (98 ??F) 07/04/2019 10:28 PM CDT Respiratory Rate 18 07/04/2019 10:28 PM CDT Oxygen Saturation 100% 07/04/2019 10:28 PM CDT Inhaled Oxygen Concentration - - Weight 74.8 kg (165 lb) 07/04/2019 10:28 PM CDT Height 157.5 cm (5' 2 ) 07/04/2019 10:28 PM CDT Body Mass Index 30.18 07/04/2019 10:28 PM CDT documented in this encounter Discharge Diagnoses Diagnosis Edema, unspecified - EDEMA, UNSPECIFIED Localized enlarged lymph nodes - LOCALIZED ENLARGED LYMPH NODES Systemic lupus erythematosus, unspecified (HCC) - SYSTEMIC LUPUS ERYTHEMATOSUS, UNSPECIFIED Rheumatoid arthritis, unspecified (HCC) - RHEUMATOID ARTHRITIS, UNSPECIFIED Fibromyalgia - FIBROMYALGIA Unspecified myalgia and myositis Chronic kidney disease, unspecified - CHRONIC KIDNEY DISEASE, UNSPECIFIED documented in this encounter Discharge Instructions * Discharge Instructions* Esau Perry MD - 07/04/2019 11:24 PM CDT Take Toradol as needed for pain. Follow-up with your doctor. Get outpatient ultrasound of your arm. * Attachments The following attachments cannot be sent through Care Everywhere. * Lupus Erythematosus (General Information) (Peruvian) documented in this encounter Medications at Time of Discharge albuterol (PROAIR RESPICLICK) 90 mcg/actuation inhalerIndications:Ac seminole Asthma Attack Inhale 2 puffs every 6 [...] for mouth pain. 240 mL 06/22/2019 0 diphenoxylate-atropin e (LOMOTIL) 2.5-0.025 mg per tabletIndications:taylor rrhea Take 1 tablet by mouth 4 (four) times a day as needed for diarrhea 20 tablet 05/28/2019 0 ergocalciferol (VITAMIN D) 50,000 unit capsule TAKE 1 CAPSULE BY MOUTH ONE TIME PER WEEK 06/21/2019 1 folic acid (FOLVITE) 1 mg tabletIndications:Fol ate Deficiency Take 1 mg by mouth daily 0 hydroxychloroquine (PLAQUENIL) 200 mg tablet Take [...] Refills Last Filled Start Date End Date ketorolac (TORADOL) 10 mg tablet Take 1 tablet (10 mg total) by mouth 4 (four) times a day as needed for pain Take with food. 20 tablet 07/04/2019 07/21/2019 documented in this encounter Discharge Disposition Disposition Code Departure Means Destination Discharge to home or self care documented in this encounter ED Notes * Esau Perry MD - 07/04/2019 10:21 PM CDT HPI Chief Complaint Patient presents with ??? Arm Swelling 10:21 PM Carito Rausch is a 29 y.o. female nonsmoker with a h/o Lupus, RA, fibromyalgia, and CKD presenting to the ED via private vehicle c/o moderate right hand edema for the last 3-4 days. Pt reports NVDsecondary to Lupus, right hand phalangeal numbness (chronic; thumb, index, middle), chest tenderness secondary to swollen lymph nodes, LUE myalgias. She denies SOB and abd pain. There are no alleviating or exacerbating factors. Pt reports that she saw her PCP for her current sx who had concerns fora blood clot and instructed her to present to the ED. She had cut her right wrist when trying to fix a window in May and had two surgeries the last of which was 12/25/2018 without successfully returning sensation to her phalanges. 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 Pt has no furthe r concerns at this time. 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 Cardiovascular: Negative for leg swelling. +chest tenderness secondary to swollen lymph nodes Gastrointestinal: Positive for diarrhea (secondary to Lupus), nausea (secondary to Lupus) and vomiting (secondary to Lupus). Negative for abdominal pain. Genitourinary: Negative for difficulty urinating. Musculoskeletal: Positive for myalgias (LUE). Skin: Negative for rash. Neurological: Positive for numbness (in right hand, chronic). Negative for dizziness and headaches. Psychiatric/Behavioral: Negative for behavioral problems. Physical Exam ED Triage Vitals [07/04/192227] Temp Pulse Resp BP SpO2 36.7 ??C (98 ??F) 98 18 165/97 100 % Temp src Heart Rate Source [...] Heart sounds: Normal heart sounds. No murmur. Comments: Pt has a good right radial pulse Pulmonary: Effort: Pulmonary effort is normal. No respiratory distress. Breath sounds: Normal breath sounds. Chest: Comments: Pt has palpable lymph nodes in chest which are tender Abdominal: General: Bowel sounds are normal. There is no distension. Palpations: Abdomen is soft. Tenderness: There is no abdominal tenderness. There is no guarding. Musculoskeletal: Right hand: She exhibits swelling (minimal). Right lower leg: Edema (trace) present. Left lower leg: Edema (trace) present. Comments: Pt has a scar to her right wrist. Skin: General: Skin is warm and dry. Neurological: Mental Status: She is alert and oriented to person, place, and time. Comments: Decreased sensation to thumb, index finger, and middle finger of right hand but has good motor strength Vitals: 07/04/192227 BP: 165/97 Pulse: 98 Resp: 18 Temp: 36.7 ??C (98 ??F) TempSrc: Oral SpO2: 100% Weight: 74.8 kg (165 lb) Height: 157.5 cm (5' 2 ) Labs Reviewed COMPREHENSIVE METABOLIC PANEL - Abnormal Result Value Sodium 138 Potassium, pl 4.2 Chloride 100 CO2 26 Anion gap 12 BUN 13 Creatinine 0.56 (*) Glucose 120 Calcium 9.6 Bilirubin, total 0.3 Protein, pl 6.8 Albumin 4.1 Alk phos 42 ALT 10 AST 12 D-DIMER, QUANTITATIVE - Abnormal D-Dimer 807 (*) CBC WITH AUTO DIFFERENTIAL - Abnormal WBC 8.7 Hgb 11.4 (*) Hct 35.1 (*) Plt 276 MPV 9.3 RBC 3.91 MCV 89.8 MCH 29.2 MCHC 32.5 RDW CV 14.9 RDW SD 48.6 (*) NRBC abs 0.00 DIFFERENTIAL AUTO - Abnormal Neutrophil abs 7.4 (*) Imm gran abs 0.0 Lymphocyte abs 0.7 (*) Monocyte abs 0.5 Eosinophil abs 0.0 Basophil abs 0.0 Neutrophil pct 86.0 Imm gran pct 0.2 Lymphocyte pct 8.0 Monocyte pct 5.2 Eosinophil pct 0.5 Basophil pct 0.1 HCG, BLOOD, QUANTITATIVE hCG, quant <5.0 EGFR GFR 128 US Vein Duplex Upper Extremity Right Limited (Results Pending) Procedures MDM Number of Diagnoses or Management Options Edema, unspecified type: Amount and/or Complexity of Data Reviewed Clinical lab tests: ordered and reviewed Risk of Complications, Morbidity, and/or Mortality Presenting problems: moderate Diagnostic procedures: moderate Management options: moderate General comments: Patient has swelling to the right hand in the setting of lupus and multiple wristsurgeries. Most likely etiology would be venous insufficiency. D-dimer is mildly elevated. Will getoutpatient ultrasound. Ultimately I think she needs to optimize her lupus treatment. She is in touch with her abrasive mixer helper regarding that. Patient Progress Patient progress: stable Clinical Impression: Edema, unspecified type Edith Watters scribed for Esau Perry in the doctor's presence. I electronically signed this note at 2:06 AM on 07/05/2019. I, Esau Perry, have personally performed the services described in the documentation , reviewed the documentation, as recorded by the scribe in my presence, and it accurately and completely records my words and actions. Any errors in translation of speech to the EMR are related to software and not the clinician. Esau Perry MD 07/05/19 0153 Esau Perry MD 07/05/19 0206 * Maranda Singleton RN - 07/04/2019 10:21 PM CDT Patient arrives to ER with complaint of right hand swelling. Patient states that she saw PCP today and states sent out for PE evaluation in right arm. documented in this encounter Plan of Treatment Not on file documented as of this encounter Procedures Procedure Name Priority Date/Time Associated Diagnosis Comments EGFR STAT 07/04/2019 10:40 PM CDT DIFFERENTIAL AUTO STAT 07/04/2019 10: 40 PM CDT CBC WITH AUTO DIFFERENTIAL STAT 07/04/2019 10:40 PM CDT D-DIMER, QUANTITATIVE STAT 07/04/2019 10:40 PM CDT HCG, BLOOD, QUANTITATIVE STAT 07/04/2019 10:40 PM CDT COMPREHENSIVE METABOLIC PANEL STAT 07/04/2019 10:40 PM CDT documented in this encounter Results * eGFR (07/04/2019 10:40 PM CDT) eGFR 128 mL/min/1.7 3 m2 [facility] ([place]) Comment: Interpretive Data Reference Interval Normal ?>/= 90 mL/min/1.73m2 Mildly decreased* ? 60 - 89 mL/min/1.73m2 Mildly to moderately decreased ?45 - 59 mL/min/1.73m2 Moderately to severely decreased ??30 - 44 mL/min/1.73m2 Severely decreased ?15 - 29 mL/min/1.73m2 Kidney Failure ?< 15 ??mL/min/1.73m2 *Relative to young adult level If -Nepalese multiply value by 1.16. Estimated glomerular filtration [...] was last reviewed 2015. Blood specimen (specimen) 07/04/2019 10:40 PM CDT 07/04/2019 10:50 PM CDT us Esau Perry MD LAB BLOOD ORDERABLES Final R esult [facility] ([place]) 1 [facility] Department [place] [address] * (ABNORMAL) Differential, auto (07/04/2019 10:40 PM CDT) Neutrophil abs 7.4(H) 1.7 - 6.5 K/cumm [facility] ([place]) Imm gran abs 0.0 0.0 - 0.1 K/cumm [facility] ([place]) Lymphocyte abs 0.7(L) 0.8 - 3.3 K/cumm [facility] ([place]) Monocyte abs 0.5 0.2 - 0.8 K/cumm [facility] ([place]) Eosinophil abs 0.0 0.0 - 0.5 K/cumm [facility] ([place]) Basophil abs 0.0 0.0 - 0.1 K/cumm [facility] ([place]) Neutrophil pct 86.0 % [facility] ([place]) Comment: Interpretive [...] was last revised on 2017. Lymphocyte pct 8.0 % [facility] ([place]) Comment: Interpretive [...] last revised on 2017. Blood specimen (specimen) 07/04/2019 10:40 PM CDT 07/04/2019 10:50 PM CDT us Esau Perry MD LAB BLOOD ORDERABLES Final R esult [facility] ([place]) 1 [facility] Department [place] [address] * (ABNORMAL) CBC with auto differential (07/04/2019 10:40 PM CDT) WBC 8.7 3.8 - 9.9 K/cumm [facility] ([place]) Hgb 11.4(L) 11.9 - 15.5 g/dL [facility] ([place]) Hct 35.1(L) 35.6 - 45.5 % [facility] ([place]) Plt 276 150 - 400 K/cumm [facility] ([place]) MPV 9.3 9.1 - 12.3 fL [facility] ([place]) RBC 3.91 3.90 - 5.20 M/cumm [facility] ([place]) MCV 89.8 81.3 - 96.4 fL [facility] ([place]) MCH 29.2 27.1 - 33.3 pg [facility] ([place]) MCHC 32.5 32.3 - 35.7 g/dL [facility] ([place]) RDW CV 14.9 11.1 - 14.9 % [facility] ([place]) RDW SD 48.6(H) 35.7 - 48.1 fL [facility] ([place]) NRBC abs 0.00 0.00 - 0.01 K/cumm [facility] ([place]) Blood specimen (specimen) 07/04/2019 10:40 PM CDT 07/04/2019 10:50 PM CDT Esau Perry MD LAB BLOOD ORDERABLES Final R esult [facility] ([place]) 1 [facility] Department [place] [address] * (ABNORMAL) D-dimer, quantitative (07/04/2019 10:40 PM CDT) D-Dimer 807(H) <=499 ng/mL FEU [facility] ([place]) Comment: Interpretive data FDA approved the D-dimer, in conjunction with a low or moderate pretest probability score, to exclude venous thromboembolic events (VTE) {PE and DVT} in outpatients when the D-dimer result is < 500 ng/ml FEU. ?? Evidence supports using an age-adjusted D-dimer cut-off for outpatients older than 50 {age x 10) to improve specificity without sacrificing sensitivity. Example: age 68, VTE cut-off 680 ng/ml FEU. References; Schouten HT et al. Brit Med J. 2013;346:f2492. Jimi et al. Annals Int Med. 2015;163:701-11. Current interpretive data was last revised on 2019. Blood specimen (specimen) 07/04/2019 10:40 PM CDT 07/04/2019 10:50 PM CDT Esau Perry MD LAB BLOOD ORDERABLES Final R esult Performing Organization Address [facility] Co de Phone Number [facility] ([place]) 1 [facility] [place] [address] * hCG, blood, quantitative (07/04/2019 10:40 PM CDT) hCG, quant <5.0 0.0 - 5.0 IUnits/L [facility] ([place]) Comment: Interpretive Data Non- Female premenopausal: < or = 5.0 IUnits/L Men: < 5.0 IUnits/L Weeks of Gestation ? Reference Interval ?? 3 to 6 ? 5.8-31,795 IUnits/L ?? 7 to 10 ? 3,697-186,977 IUnits/L ??12 to 15 ?27,832- 70,791 IUnits/L ??16 to 18 ? 9,040- 58,179 IUnits/L Current Interpretive Data was last revised on 2017. Blood specimen (specimen) 07/04/2019 10:40 PM CDT 07/04/2019 10:50 PM CDT Esau Perry MD LAB BLOOD ORDERABLES Final R esult Performing Organization Address [facility] Co de Phone Number [facility] ([place]) 1 [facility] Department [place] [employer] [place] [address] * (ABNORMAL) Comprehensive metabolic panel (07/04/2019 10:40 PM CDT) Pathologist [facility] Sodium 138 135 - 145 mmol/L [facility] ([place] Potassium, pl 4.2 3.3 - 4.9 mmol/L [facility] ([place]) Chloride 100 97 - 110 mmol/L [facility] ([place]) CO2 26 22 - 32 mmol/L [facility] ([place]) Anion gap 12 2 - 15 mmol/L [facility] ([place]) BUN 13 8 - 25 mg/dL [facility] ([place]) Creatinine 0.56(L) 0.60 - 1.10 mg/dL [facility] ([place]) Glucose 120 70 - 199 mg/dL [facility] ([place]) Comment: Interpretive Data Fasting glucose [...] 2017. Calcium 9.6 8.5 - 10.3 mg/dL [facility] ([place]) Bilirubin, total 0.3 0.1 - 1.2 mg/dL [facility] ([place]) Protein, pl 6.8 6.5 - 8.5 g/dL [facility] ([place]) Albumin 4.1 3.5 - 5.0 g/dL [facility] ([place]) Alk phos 42 40 - 130 Units/L [facility]) ALT 10 7 - 45 Units/L [facility] ([place] AST 12 10 - 45 Units/L [facility] ([place]) Blood specimen (specimen) 07/04/2019 10:40 PM CDT 07/04/2019 10:50 PM CDT Esau Perry MD LAB BLOOD ORDERABLES Final R esult [facility] ([place]) 1 [facility] Department of Laboratories [place], [place] [address] documented in this encounter Visit Diagnoses Diagnosis Edema, unspecified type- Primary documented in this encounter Administered Medications Inactive Administered Medications - up to 3 most recent administrations Medication Order MAR Action Action Date Dose Rate Site ketorolac (TORADOL) injection 30 mg 30 mg, intramuscular, Once, On Sun07/04/19 at 2324, For 1 dose, For Adult IV push, administer over 15 seconds Given 07/04/2019 11:37 PM CDT 30 mg Right Deltoid documented in this encounter Active and Recently Administered Medications Times are shown in CDT. Scheduled Medication Order 07/02/2019 07/03/2019 07/04/2019 ketorolac (TORADOL) injection 30 mg (COMPLETED) 30 mg, intramuscular, Once, On Sun07/04/19 at 2324, For 1 dose, For Adult IV push, administer over 15 seconds 2337 (Given - Provid er: Maranda Singleton RN) documented in this encounter Orders Medications Ordered That Omer ht Not Have Been Administered Count Last Ordered Date First Ordered Date ketorolac (TORADOL) injection 30 mg 1 07/03 documented in this encounter Additional Health Concerns Infection Onset Date Last Indicated Resolved Time COVID: Suspected 06/25/2019 07/07/2019 07/08/2019 2:20 AM CDT documented as of this encounter Care Teams [place] Cutter Relationship Specialty [place] [id number] [address] PCP - General 07/04/19 [place] [address] [address] [address] 11/16/18 documented as of this encounter
--- OUTSIDE RECORDS SUMMARY | 2024-02-24 20:15 | XMS_ITS | Encounter Summary ---
Author Organization [facility] Address [address] [place] [address] Care Team Providers Care Traveling Engineer Name Role Phone Huseyin Dangelo MD Unavailable [phone] Brian Mon MD Primary Care Provider + Encounter Details Date Type Department Care Team (Late st Contact Info) Description 07/09/2019 Telephone [facility] Hand Surgery [address] [place] [address] Chino Zaldivar MD [facility] [address] [address] Social History Tobacco Use Types Packs/Day Years [...] Telephone Encounter - Kyra Zuñiga MA - 07/09/2019 8:54 AM CDT This was done. * Telephone Encounter - Lupis Guaman - 07/09/2019 8:18 AM CDT TLB Patient is calling stating that [facility] in [facility] Will not take a paper order for an MRI from the patient. They need the order faxed to them Fax - [phone] documented in this encounter Plan of Treatment [...] [place] [address] [address] PCP - General 07/04/19 [place] [address] [address] [address] 11/16/18 documented as of this encounter
--- OUTSIDE RECORDS SUMMARY | 2024-02-24 20:15 | XMS_ITS | Encounter Summary ---
Author Organization [facility] [facility] Address [address] [place] [address] Phone Care Team Providers Care In Store Representative Name Role Phone Huseyin Dangelo MD Unavailable [phone] Brian Mon MD Primary Care Provider + Encounter Details Date Type Department Care Team (Late st Contact Info) Description 07/13/2019 Orders Only [facility] Scanning, Provider Social History Tobacco Use Types [...] Priority Date/Time Associated Diagnosis Comments SCAN - LABS 07/13/2019 documented in this encounter Results * SCAN - LABS (07/13/2019) us Provider Scanning Edited Result - Final documented in this encounter Visit Diagnoses Not on filedocumented in this encounter Additional Health Concerns Infection Onset Date Last Indicated Resolved Time Respiratory Infection (BLANCA), contact + droplet Comment:Automatically added due to negative COVID-19 result. 07/08/2019 07/08/2019 07/22/2019 3:0 5 AM CDT documented as of this encounter Care Teams In Store Representative Relationship Specialty [place] [address] [address] PCP - General 07/04/19 [place] [address] [address] [address] 11/16/18 documented as of this encounter
--- OUTSIDE RECORDS SUMMARY | 2024-02-24 20:15 | XMS_ITS | Encounter Summary ---
Author Organization [facility] Healthcare Address [address] [place] [address] Care Team Providers Care Travelift Operator Name Role Phone Huseyin Dangelo MD Unavailable [phone] Brian Mon MD Primary Care Provider + Encounter Details Date Type Department Care Team (Late st Contact Info) Description 07/13/2019 2:05 AM CDT - 07/13/2019 2:14 AM CDT Emergency [facility] Emergency Department [address] [place] [address] Chronic diarrhea (Primary Dx) Discharge Disposition: Discharge to home [...] as of this encounter Discharge Diagnoses Diagnosis Systemic lupus erythematosus, unspecified (HCC) - SYSTEMIC LUPUS ERYTHEMATOSUS, UNSPECIFIED Allergy status to other drugs, medicaments and biological substances status - ALLERGY STATUS TO OTHER DRUGS, MEDICAMENTS AND BIOLOGICAL SUBSTANCES STATUS Noninfective gastroenteritis and colitis, unspecified - NONINFECTIVE GASTROENTERITIS AND COLITIS, UNSPECIFIED documented in this encounter Medications at Time [...] by mouth 2 (two) times a day 30 tablet 1 07/06/2019 0 diphenoxylate-atropin e (LOMOTIL) 2.5-0.025 mg per [...] daily 0 documented as of this encounter Discharge Disposition Disposition Code Departure Means Destination Discharge to home or self care documented in this encounter ED Notes * Dalila Cornejo MD - 07/13/2019 2:14 AM [...] Depression ??? Fibromyalgia ??? Fibromyalgia ??? Lupus ([facility]) ??? 07/13/2015 ??? Rheumatoid arthritis ([facility]) Past Surgical History: Procedure Laterality Date ??? [...] by myself in the absence of a biochemical engineer) Procedures Chart review shows: Frequent visits with similar complaints ED course/MDM: [facility]. See paper documentation. There were no [...] been completed with a voice recognition program. Vice Principal errors occur. Please contact me for any clarification.) IDalila MD, have personally performed the services described in the documentation aDlila Cornejo MD 07/13/19 0236 documented in this encounter Plan of Treatment Not on file documented as of this encounter Visit Diagnoses Diagnosis Chronic diarrhea- Primary Diarrhea documented in this encounter Additional Health Concerns Infection Onset Date Last Indicated Resolved Time Respiratory Infection (BLANCA), contact + droplet Comment:Automatically added due to negative COVID-19 result. 07/08/2019 07/08/2019 07/22/2019 3:0 5 AM CDT documented as of this encounter Care Teams Travelift Operator Relationship Specialty Start [place] [address] [address] [address] PCP - General 07/04/19 [place] [address] [address] [address] 11/16/18 documented as of this encounter
--- OUTSIDE RECORDS SUMMARY | 2024-02-24 20:15 | XMS_ITS | Encounter Summary ---
Author Organization [facility] Healthcare Address [address] [place] [address] Care Team Providers Care Chemical Packager Name Role Phone Huseyin Dangelo MD Unavailable [phone] Brian Mon MD Primary Care Provider + Reason for Visit * Reason Comments COVID-19 EVALUATION Leg Pain Encounter Details Date Type Department Care Team (Late st Contact Info) Description 07/06/2019 11:11 PM CDT - 07/07/2019 1:20 AM CDT Emergency [facility] Emergency Department [address] [place] [address] Arthur Rodriguez MD [address] [place] [address] Swelling of both hands (Primary Dx) Discharge Disposition: Discharge to home [...] Reading Time Taken Comments Blood Pressure 133/86 07/07/2019 12:30 AM CDT Pulse 93 07/07/2019 12:30 AM CDT Temperature 36.6 ??C (97.9 ??F) 07/06/2019 10:31 PM C DT Respiratory Rate 18 07/06/2019 10:31 PM CDT Oxygen Saturation 99% 07/07/2019 12:30 AM CDT Inhaled Oxygen Concentration - - Weight - - Height - - Body Mass Index - - documented in this encounter Discharge Diagnoses Diagnosis Localized swelling, mass and lump, upper limb, bilateral - LOCALIZED SWELLING, MASS AND LUMP, UPPER LIMB, BILATERAL Systemic lupus erythematosus, unspecified (HCC) - SYSTEMIC LUPUS ERYTHEMATOSUS, UNSPECIFIED Rheumatoid arthritis, unspecified (HCC) - RHEUMATOID ARTHRITIS, UNSPECIFIED Fibromyalgia - FIBROMYALGIA Unspecified myalgia and myositis Contact with and (suspected) exposure to other viral communicable diseases - CONTACT WITH AND (SUSPECTED) EXPOSURE TO OTHER VIRAL COMMUNICABLE DISEASES Personal history of other diseases of urinary system - PERSONAL HISTORY OF OTHER DISEASES OF URINARY SYSTEM Personal history of diseases of the blood and blood-forming organs and certain disorders involving the immune mechanism - PERSONAL HISTORY OF DISEASES OF THE BLOOD AND BLOOD-FORMING ORGANS AND CERTAIN DISORDERS INVOLVING T documented in this encounter Discharge Instructions * Discharge Instructions* Estella Aguila MD - 07/07/2019 1:17 AM CDT You evaluated in the emergency department today for painful hand swelling as well as left leg swelling. This is most likely due to your Rheumatologic disease. You may continue to take prednisone as previously prescribed as well as your other maintenance medicines. Please follow-up with your global chief creative officer tomorrow for further guidance. You also tested for COVID -19 which did not result before youleft the hospital. Please maintain the social distancing, wear a face mask, wash your hands often and stay home if you experience fever (T>100.5), shortness of breath, cough, sore throat, profoundfatigue * Attachments The following attachments cannot be sent through Care Everywhere. * Infection, Preventing the Spread of: Understanding Isolation Procedures (Icelandic) documented in this encounter Medications at Time of Discharge albuterol (PROAIR RESPICLICK) 90 mcg/actuation inhalerIndications:Ac [place] Asthma Attack Inhale 2 puffs every 6 [...] MOUTH ONE TIME PER WEEK 06/21/2019 1 hydroxychloroquine (PLAQUENIL) 200 mg tablet Take 100 [...] documented in this encounter ED Notes * Estella Aguila MD - 07/07/2019 12:32 AM CDT HPI Chief Complaint Patient presents with ??? COVID-19 EVALUATION ??? Leg Pain Patient is a 29-year-old female with history of lupus, rheumatoid arthritis, fibromyalgia, CKD, anemia who presents with myalgia and hand swelling. Patient reports a 3 day history of progressive bilateral hand swelling, left foot and leg swelling with associated polyarticular pain and swelling. He reports compliance with her lupus regimen (hydroxychloroquine and prednisone 20mg daily) and noted progressive bilateral hand and wrist pain and swelling later progressed to left calf and left foot pain and swelling. She has had seven recent ED visits for various complaints (cough, diarrhea/vomiting, shortness of breath, hand swelling) for which she was given short courses of antibiotics, tested negative for COVID and was advised that the swelling was related to her lupus flare vs generalized edema from steroid use. Patient was evaluated ED ye with unremarkable labs except elevated d-dimer. Patient was instructed to increase prednisone to 40 mg daily until a follow-up for her global chief creative officer. NSAIDs was suggested for pain control the patient was reluctant to take it due to possible GI side effects. Patient returned home, took someTylenol and decided to seek additional medical attention today due to concern that she may have COVI D -19 or a blood clot. Of note, patient acknowledge being tested for COVID but states she has a co- worker who is COVID-PUI. She is also concerned about blood clots due to her elevated D-dimer level, and was instructed by her PCP that swelling can be due to blood clots. 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 Tachycardia ??? Cough 05/24/2019 ??? Lupus (CMS/HCC) 05/24/2019 ??? Miscarriage 05/24/2019 ??? Diarrhea of presumed infectious origin 05/24/2019 ??? Laceration of flexor muscle, fascia [...] use: Not Currently ??? Drug use: Never Social History Social History Narrative ??? Not on file Review of Systems Review of Systems Constitutional: Positive for chills. Negative for fatigue and fever. HENT: Positive for sore throat. Negative for congestion and rhinorrhea. Respiratory: Positive for cough. Negative for shortness of breath. Cardiovascular: Positive for leg swelling. Negative for chest pain and palpitations. Gastrointestinal: Positive for diarrhea and nausea. Negative for abdominal pain. Genitourinary: Negative for dysuria and urgency. Musculoskeletal: Positive for arthralgias, back pain, joint swelling and myalgias. Neurological: Negative for dizziness, syncope, weakness, numbness and headaches. Psychiatric/Behavioral: The patient is nervous/anxious. Physical Exam ED Triage Vitals Temp Pulse Resp BP SpO2 07/06/19 2231 07/06/19 2231 07/06/19 2231 07/06/19 2231 07/06/19 2231 36.6 ??C (97.9 ??F) 89 18 137/100 98 % Temp src Heart Rate Source Patient Position BP Location FiO2 (%) -- 07/06/19 2330 -- -- -- Monitor Physical Exam Vitals signs reviewed. Constitutional: General: She is not in acute distress. Appearance: Normal appearance. She is obese. HENT: Head: Normocephalic and atraumatic. Nose: Nose normal. Mouth/Throat: Mouth: Mucous membranes are moist. Pharynx: Oropharynx is clear. No oropharyngeal exudate or posterior oropharyngeal erythema. Eyes: Extraocular Movements: Extraocular movements intact. Conjunctiva/sclera: Conjunctivae normal. Pupils: Pupils are equal, round, and reactive to light. Neck: Musculoskeletal: Normal range of motion. Cardiovascular: Rate and Rhythm: Normal rate and regular rhythm. Pulses: Normal pulses. Heart sounds: No murmur. No gallop. Pulmonary: Effort: Pulmonary effort is normal. No respiratory distress. Breath sounds: No wheezing. Abdominal: General: There is no distension. Palpations: Abdomen is soft. Tenderness: There is no abdominal tenderness. There is no guarding. Musculoskeletal: Normal range of motion. General: Swelling and tenderness present. Comments: Bilateral hand swelling with PIP joint swelling, bilateral wrist tenderness w/o fluid collection No bilateral lower extremities swelling, tenderness of right calf Skin: General: Skin is warm and dry. Findings: No bruising or erythema. Neurological: General: No focal deficit present. Mental Status: She is alert and oriented to person, place, and time. Psychiatric: Comments: Very anxious, tangential speech w/o pressure MDM Medical Decision Making Differential Diagnosis or Management Options: Patient is a 29-year-old female with history of lupus, rheumatoid arthritis, fibromyalgia, CKD, anemia who presents with myalgia and hand swelling. Given the symmetric involvement of joints and non rheumatology disorder, most likely etiology is anacute on chronic inflammatory process (lupus or RA flare); low suspicion for acute DVT (based on history and exam, Well's criteria -1; elevated D-dimer could be related to known history of lupus). Although patient has had concerning symptoms at flashes been tested negative for COVID -19. Will retest today however is given her possible exposure from a co-worker. Plan- will plan to obtain COVID swab, will acknowledge patient concerns and fears about her currenthealth status and provide reassurance. Will also emphasize need to follow up with global chief creative officer asearly as tomorrow. Dispo: tentative discharge home with COVID -19 precautions Attending Summary of Care ED Course as of Jul 06 525 Time: 07/06 116 Comment: ATTENDING SUMMARY: 29 y F hx of lupus here with multiple complaints. Has been having bilateral upper and lower extremity swelling over the past few days, also left calf pain. [facility] with similar issues. Had a D-dimer about 800 three days ago, but this was down from 1200. Cough over the past 1 day. Recently increased her prednisone due to concern for lupus flare. No fever. ROS negative for SOB, chest pain, abdominal pain. On examination, anxious appearing, nonlabored respirations, no stridor, abdomen soft, NT ND, bilateral upper and lower extremity edema that is moderate, unable to elicit calf or popliteal tenderness bilaterally. Bilateral lower extremities appear symmetric. DP pulses 2+ bilaterally. Strength and sensation grossly intact to all extremities, clear speech. Ddx includes lupus flare, steroid side effect, lower probability DVT given low risk Wells. Patient concerned with COVID given new onset cough, and she interfaces with the public at work, so will check COVID swab (though my clinical concern is low--no fever, no SOB, normal O2 sats, no coughing on my exam) and discharge with quarantine precautions. Recommended f/u with rheum for further treatment of likely lupus flare. --Dayday Rodriguez MD. By: Arthur Rodriguez MD Time: 07/06 525 Comment: Pt informed over the phone that COVID result is negative By: Estella Aguila MD Swelling of both hands Estella Aguila MD Resident 07/07/19525 Cosigned by Arthur Rodriguez MD at 07/07/2019 7:14 AM CDT Associated attestation - Arthur Rodriguez MD - 07/07/2019 7:14 AM CDT I have seen and examined the patient on 07/07/2019. I reviewed the resident's note and agree with the findings and plan of care as documented in the resident's note with modifications as documented inmy note. --Dayday Rodriguez MD. * Анна Clement RN - 07/07/2019 12:17 AM CDT Pt arrives with multiple medical concerns. Pt endorses SOB and cough that started tonight. 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 Pt denies fever, or loss in sense of taste and smell. Pt states has been vomiting blood multiple times today, endorses LLE pain and BLE swelling in feet and BUE in hands. Pt history of lupus. Pt states [facility] concern for possible blood clot. Pt went to ED today and they did not do anything stating they didn't even draw blood. Pt states has had 3 negative COVID tests. Pt A&Ox4. VSS. Анна Clement RN 07/07/19 0018 * Damion Triplett RN - 07/06/2019 11:11 PM CDT Bed: ED1-05 Expected date: Expected time: Means of arrival: Car Comments: Damion Triplett RN 07/06/19 5066 * Damion Triplett RN - 07/06/2019 10:31 PM CDT Patient states she is having swelling to arms and legs, also having pain to legs, states she was concern for blood clots, seen at OSH that did not have US. Patient states she is also having a cough and SOB that started tonight. documented in this encounter Plan of Treatment Not on file documented as of this encounter Procedures Procedure Name Priority Date/Time Associated Diagnosis Comments COVID-19 CORONAVIRUS RNA STAT 07/07/2019 1:03 AM CDT POCT RAPID HIV ANTIBODY COMMUNITY SCREENING-ASCENCION ELIGIBLE Routine 07/07/2019 12:23 AM CDT documented in this encounter Results * COVID-19 Coronavirus RNA Nasopharyngeal (07/07/2019 1:03 AM CDT) COVID-19 RNA Negative Negative [facility] Comment: Interpretive Data Testing performed by [facility] ([phone]). This test is performed using the [employer] Xpert Xpress SARS-CoV-2 assay. ??This is a real-time RT-PCR test intended for the qualitative detection of nucleic acid from the SARS-CoV-2. ??This assay has been reviewed by the FDA for Emergency Use Authorization (EUA). The performance characteristics have been verified by the [facility]. ??Additional sample types have been validated according to CLIA regulations. ??Results must be considered in the clinical context and a negative result does not rule out infection. ?? Interpretive Data last revised 2019. Nasopharyngeal 07/07/2019 1: 03 AM CDT 07/07/2019 1:21 AM CDT Narrative [facility] - 07/07/2019 2:19 AM CDT Is the patient experiencing any symptoms consistent with COVID (eg. Fever, cough, shortness of breath)?->Yes What is the reason for testing?->Likely to be admitted THE COLLECTION LOCATION IS [facility] ED1-05 us Estella Aguila MD LAB MICROBIOLOGY - GENERAL O RDERABLES Final Result [facility] Department [place] [address] * POCT rapid HIV (07/07/2019 12:23 AM CDT) Rapid HIV, POC Negative Negative QC Control Line Acceptable Blood specimen (specimen) 07/07/2019 12:23 AM CDT Daniel Bunch MD POINT OF CARE TEST ORDERABLE S Final Result documented in this encounter Visit Diagnoses Diagnosis Swelling of both hands- Primary documented in this encounter Discontinued Medications Medication Sig Discontinue Reason Start Date End Da te folic acid (FOLVITE) 1 mg tabletIndications:Folate Deficiency Take 1 mg by mouth daily Therapy completed 07/06/2019 documented as of this encounter Orders Nursing Count Last Ordered Date First Orde red Date NURSING COMMUNICATION 1 07/06/2019 documented in this encounter Additional Health Concerns Infection Onset Date Last Indicated Resolved Time COVID: Suspected 06/25/2019 07/07/2019 07/08/2019 2:20 AM CDT documented as of this encounter Care Teams Chemical Packager Relationship Specialty [place] [address] [address] [place] [id number] PCP - General 07/04/19 [place] [address] [address] [place] [id number] 11/16/18 documented as of this encounter
--- OUTSIDE RECORDS SUMMARY | 2024-02-24 20:15 | XMS_ITS | Encounter Summary ---
Author Organization [facility] Address [address] [place] [address] Phone Care Team Providers Care Front Worker Name Role Phone Huseyin Dangelo MD Unavailable [phone] Brian Mon MD Primary Care Provider + Encounter Details Date Type Department Care Team (Late st Contact Info) Description 07/07/2019 Orders Only [facility] Rheumatology [address] [facility] Medical Office [address] [place] [id number] Nallely Griffiths, PENSION ADMINISTRATOR Lupus ([facility]/HCC) (Primary Dx) Social History Tobacco Use Types [...] Type Priority Associated Diagnoses Orde r Schedule C3 complement Lab Routine Lupus (CMS/HCC) Expected: 07/07/2019, Expires: 07/06/2020 C4 complement Lab Routine Lupus (CMS/HCC) Expected: 07/07/2019, Expires: 07/06/2020 Anti-double stranded DNA antibodies Lab Routine Lupus ([facility]) Expected: 07/07/2019, Expires: 07/06/2020 Protein / creatinine ratio, urine, random Lab Routine Lupus ([facility]) Expected: 07/07/2019, Expires: 07/06/2020 Urinalysis reflex to microscopic and culture Urine Microbiology Routine Lupus ([facility]) Expected: 07/07/2019, Expires: 07/06/2020 TB test, quantiferon gold Lab Routine Lupus ([facility]) Expected: 07/07/2019, Expires: 07/06/2020 documented as of this encounter Visit Diagnoses Diagnosis Lupus- Primary Systemic lupus erythematosus documented in this encounter Additional Health Concerns Infection Onset Date Last Indicated Resolved Time COVID: Suspected 06/25/2019 07/07/2019 07/08/2019 2:20 AM CDT documented as of this encounter Care Teams Front Worker Relationship Specialty [place] [address] [address] [place] [address] PCP - General 07/04/19 [place] [address] [address] [place] [id number] 11/16/18 documented as of this encounter
--- OUTSIDE RECORDS SUMMARY | 2024-02-24 20:15 | XMS_ITS | Encounter Summary ---
Author Organization [facility] Healthcare Address [address] [place] [address] Care Team Providers Care Felt Cementer Name Role Phone Huseyin Dangelo MD Unavailable [phone] Brian Mon MD Primary Care Provider + Reason for Referral * Diagnostic Imaging (Routine) - Closed Specialty Diagnoses / Procedures Referred By Jud freeman Referred To Contact Diagnoses Liver lesion Procedures US Liver Anneliese Alvarenga NP Phone: tel: [address] [address] Referral ID Status Reason Start Date Expiration Date Visits Re quested Visits Authorized [id number] Closed 07/16/2019 01/24/2021 1 1 Reason for Visit * Diagnostic Imaging (Routine) - Closed Specialty Diagnoses / Procedures Referred By Jud freeman Referred To Contact Diagnoses Liver lesion Procedures US Liver Anneliese Alvarenga NP Phone: tel: [address] [address] Referral ID Status Reason Start Date Expiration Date Visits Re quested Visits Authorized [id number] Closed 07/16/2019 01/24/2021 1 1 Encounter Details Date Type Department Care Team (Latest Contact Info) Description 07/17/2019 8:38 AM CDT - 07/17/2019 11:59 PM CDT Hospital Encounter [facility] ` [address] [place] [address] Dang Denis MD [address] [place] [address] [address] [place] [address] Anneliese Alvarenga OFFICE SYSTEM ANALYST [address] [place] [address] Liver lesion Discharge Disposition: Discharge to home or self [...] Discharge albuterol (PROAIR RESPICLICK) 90 mcg/actuation inhalerIndications:Ac [place] Asthma Attack Inhale 2 puffs every 6 [...] Take with food. 20 tablet 07/04/2019 0 ketorolac (TORADOL) 10 mg tablet Take 10 mg by mouth every 6 (six) hours as needed for pain 0 omeprazole (PriLOSEC) 20 mg capsule Take [...] stop 50 tablet 07/02/2019 0 predniSONE (DELTASONE) 1 mg tablet Take 1 mg by mouth daily 0 predniSONE (DELTASONE) 10 mg tablet Take by mouth 0 predniSONE (DELTASONE) 10 mg tablet Take 12.5 mg by mouth daily 0 predniSONE (DELTASONE) 5 mg tabletIndications:aut oimmune disease Take 12.5 mg by mouth daily 0 traZODone (DESYREL) 150 mg tabletIndications:margarita es on 75mg Take 150 mg by mouth nightly 0 documented as of this encounter Discharge Disposition Disposition Code Departure Means Destination Discharge to home or self care documented in this encounter Plan of Treatment Not on file documented as of this encounter Procedures Procedure Name Priority Date/Time Associated Diagnosis Comments US LIVER Schedule NAHOMY, Read Routine (Patient lives out of area) 07/17/2019 9:55 AM CDT Liver lesion documented in this encounter Results * US Liver (07/17/2019 9:55 AM CDT) Anatomical Region Laterality Modality Abdomen N/A Ultrasound 07/17/2019 10:0 0 AM CDT Impressions 07/17/2019 10:04 AM CDT No definite abnormality. ??In particular, the liver parenchyma is normal in appearance with no focal liver lesions seen. Electronically signed by: Richard Garcia M.D. Narrative 07/17/2019 10:04 AM CDT EXAMINATION: US LIVER HISTORY: The patient is a 29-year-old female who had a recent CT scan of the abdomen which raises the possibility of a small, 11 mm sized lesion in the right hepatic lobe. ??This sonogram is being done to better evaluate the CT findings. ??The patient also presents with nausea, vomiting and right upper quadrant pain. TECHNIQUE: Transverse and sagittal images were obtained along with color Doppler imaging. FINDINGS: The gallbladder is normal in appearance with no calculi within it. No gallbladder wall thickening seen nor was any pericholecystic fluid noted. ??Biliary tree is not dilated with the common duct measuring 5 mm in diameter. The liver measures 15.3 cm in sagittal length. ??Echotexture is grossly normal. ??No focal liver lesion is seen within the liver parenchyma. ??Liver surface is smooth. ??Portal vein patent with normal hepatopedal flow within it. Pancreas is grossly normal. ??The right kidney measures 13.0 x 4.2 x 5.6 cm in size and has a normal sonographic appearance. ??The abdominal aorta and inferior vena cava are normal in appearance. ??No ascites seen. Procedure Note Richard Garcia MD - 07/17/2019 EXAMINATION: US LIVER HISTORY: The patient is a 29-year-old female who had a recent CT scan of the abdomen which raises the possibility of a small, 11 mm sized lesion in the right hepatic lobe. This sonogram is being done to better evaluate the CT findings. The patient also presents with nausea, vomiting and right upper quadrant pain. TECHNIQUE: Transverse and sagittal images were obtained along with color Doppler imaging. FINDINGS: The gallbladder is normal in appearance with no calculi within it. No gallbladder wall thickening seen nor was any pericholecystic fluid noted. Biliary tree is not dilated with the common duct measuring 5 mm in diameter. The liver measures 15.3 cm in sagittal length. Echotexture is grossly normal. No focal liver lesion is seen within the liver parenchyma. Liver surface is smooth. Portal vein patent with normal hepatopedal flow within it. Pancreas is grossly normal. The right kidney measures 13.0 x 4.2 x 5.6 cm in size and has a normal sonographic appearance. The abdominal aorta and inferior vena cava are normal in appearance. No ascites seen. IMPRESSION: No definite abnormality. In particular, the liver parenchyma is normal in appearance with no focal liver lesions seen. Electronically signed by: Richard Garcia M.D. Anneliese Alvarenga OFFICE SYSTEM ANALYST IMG US PROCEDURES Final Result documented in this encounter Visit Diagnoses Diagnosis Liver lesion Other specified disorders of liver documented in this encounter Additional Health Concerns Infection Onset Date Last Indicated Resolved Time Respiratory Infection (BLANCA), contact + droplet Comment:Automatically added due to negative COVID-19 result. 07/08/2019 07/08/2019 07/22/2019 3:0 5 AM CDT documented as of this encounter Care Teams Felt Cementer Relationship Specialty [place] [address] [address] [address] PCP - General 07/04/19 [place] [address] [address] [address] 11/16/18 documented as of this encounter
--- OUTSIDE RECORDS SUMMARY | 2024-02-24 20:15 | XMS_ITS | Encounter Summary ---
Author Organization [facility] Address [address] [place] [address] Care Team Providers Care On Site Wastewater Systems Technician Name Role Phone Huseyin Dangelo MD Unavailable [phone] Brian Mon MD Primary Care Provider + Reason for Referral * Diagnostic Imaging (Routine) - Closed Specialty Diagnoses / Procedures Referred By Jud freeman Referred To Contact Diagnoses Liver lesion Procedures US Liver Anneliese Alvarenga NP Phone: tel: [facility] [address] [place] [address] Referral ID Status Reason Start Date Expiration Date Visits Re quested Visits Authorized [id number] Closed 07/16/2019 01/24/2021 1 1 Reason for Visit * Reason Comments Follow-up Per Cira Encounter Details Date Type Department Care Team (Latest Contact Info) Description 07/16/2019 11:00 AM CDT Office Visit [facility] Gastroenterology at [place] [address] [facility] [address] [place] [address] Anneliese Alvarenga, BODYWORK THERAPIST [address] [place] [id number] Epigastric pain (Primary Dx); Diarrhea, unspecified type; Nausea and vomiting, intractability of vomiting not specified, unspecified vomiting type; Liver lesion; BMI 29.0-29.9,adult Social History Tobacco Use Types Packs/Day Years [...] Reading Time Taken Comments Blood Pressure 120/70 07/16/2019 10:11 AM CDT Pulse 99 07/16/2019 10:11 AM CDT Temperature 36 ??C (96.8 ??F) 07/16/2019 10:11 AM CDT Respiratory Rate 20 07/16/2019 10:11 AM CDT Oxygen Saturation 99% 07/16/2019 10:11 AM CDT Inhaled Oxygen Concentration - - Weight 72.6 kg (160 lb) 07/16/2019 10:11 AM CDT Height 157.5 cm (5' 2 ) 07/16/2019 10:11 AM CDT Body Mass Index 29.26 07/16/2019 10:11 AM CDT documented in this encounter Progress Notes * Anneliese Alvarenga NP - 07/16/2019 11:00 AM CDT Images from the original note were not included. NEW PATIENT VISIT Chief Complaint Patient presents with ??? Follow-up Per Cira SUBJECTIVE: HPI: This is a pleasant 29 y.o. female who is being seen for Follow-up (Per Cira ) Pt with history of lupus here after multiple ED visit for complaints of right sided abdominal pain that radiate to chest, arm, and back along with N/V, diarrhea. Pt says she has been having issues with diarrhea since the end of April. She is having at least 10 BM's daily and are loose to watery. She denies blood. She says if she eats, she has urgent BM's shortly after. She has tried Lomotil QID and recently taking imodium without much relief. She has woken up at night to have BM. About 2 days ago, she started to have severe epigastric pain. She has also been having severe nausea and vomiting (mostly self induced because of severity of nausea) for a few weeks. She is able to keep liquids down but more solid foods cause more severe nausea. Pt also noted to have liver lesion on recent CT. She had a CT back in Dec 2018 which showed multiple liver lesions; however, the one done yesterday, only showed one at 11mm. She denies alcohol or drug use. Her maternal and paternal grandfathers had colon cancer. Her paternal grandfather also had liver cancer found along with the colon. Abdominal pain: Yes, describe: Epigastric pain for about 2 days. Bowel Movements: Diarrhea at least 10 times daily. Black or bloody stools: No Nausea or vomiting: Yes, describe: Nausea daily and after every meal. Heartburn: No Difficulty swallowing: No Weight changes: No Appetite: Poor ROS: Review of Systems Constitutional: Positive for appetite change. Negative for activity change, chills, fatigue, fever and unexpected weight change. HENT: Negative for trouble swallowing. Eyes: Negative for visual disturbance. Respiratory: Negative for shortness of breath. Cardiovascular: Negative for chest pain and leg swelling. Gastrointestinal: Positive for abdominal pain, diarrhea, nausea and vomiting. Negative for abdominal distention, anal bleeding, blood in stool, constipation and rectal pain. Musculoskeletal: Negative for arthralgias. Skin: Negative for color change. Neurological: Negative for dizziness, light-headedness and headaches. Hematological: Negative for adenopathy. Does not bruise/bleed easily. Past Medical History: Diagnosis Date ??? Anemia ??? Chronic kidney disease ??? Depression ??? Fibromyalgia ??? Fibromyalgia ??? Lupus (CMS/HCC) ??? 07/13/2015 ??? Rheumatoid arthritis (CMS/HCC) Past Surgical History: Procedure Laterality Date ??? APPENDECTOMY ??? DILATION AND CURETTAGE OF UTERUS ??? HAND SURGERY ??? WRIST SURGERY Right 12/09/2018 rt wrist median nerve repair, allograft nerve wrap application Patient Active Problem List Diagnosis ??? Laceration of flexor muscle, fascia and tendon of right little finger at wrist and hand level, initial encounter ??? Cough ??? Lupus (CMS/HCC) ??? Miscarriage ??? Tachycardia ??? Nausea and vomiting ??? Epigastric pain ??? Gastroesophageal reflux disease ??? Diarrhea ??? Abdominal pain ??? Liver lesion ??? BMI 29.0-29.9,adult Current Outpatient Medications on File Prior to Visit Medication Sig Dispense Refill ??? ALPRAZolam (XANAX) 0.25 mg tablet Take 0.25 mg by mouth 3 (three) times a day as needed ??? ergocalciferol (VITAMIN D) 50,000 unit capsule TAKE 1 CAPSULE BY MOUTH ONE TIME PER WEEK ??? escitalopram (LEXAPRO) 10 mg tablet Take 10 mg by mouth daily ??? hydroxychloroquine (PLAQUENIL) 200 mg tablet Take 100 mg by mouth nightly ??? omeprazole (PriLOSEC) 20 mg capsule Take 20 mg by mouth daily ??? predniSONE (DELTASONE) 1 mg tablet Please take 2 tablets at night for 2 weeks and then 1 tabletat night for 2 weeks and stop 50 tablet 0 ??? predniSONE (DELTASONE) 10 mg tablet Take by mouth ??? predniSONE (DELTASONE) 5 mg tablet Take 12.5 mg by mouth daily ??? albuterol (PROAIR RESPICLICK) 90 mcg/actuation inhaler Inhale 2 puffs every 6 (six) hours as needed for wheezing ? ? aluminum-magnesium hydroxide-simethicone & diphenhydramine 1:1 (MAGIC MOUTHWASH) suspensionTake 10 mL by mouth every 8 (eight) hours as needed (mouth ulcers) Swish and spit every 8 hours as needed for mouth pain. (Patient not taking: Reported on 07/16/2019) 240 mL 0 ??? dicyclomine (BENTYL) 20 mg tablet Take 1 tablet (20 mg total) by mouth 2 (two) times a day for 14 days (Patient not taking: Reported on 07/16/2019) 28 tablet 0 ??? diphenoxylate-atropine (LOMOTIL) 2.5-0.025 mg per tablet Take 1 tablet by mouth 4 (four) times a day as needed for diarrhea 20 tablet 0 ??? hydrOXYzine (ATARAX) 10 mg tablet Take 1 tablet (10 mg total) by mouth 3 (three) times a day asneeded for anxiety (Patient not taking: Reported on 07/16/2019) 30 tablet 0 ??? ketorolac (TORADOL) 10 mg tablet Take 1 tablet (10 mg total) by mouth 4 (four) times a day as needed for pain Take with food. (Patient not taking: Reported on 07/16/2019) 20 tablet 0 ??? ondansetron ODT (ZOFRAN-ODT) 4 mg disintegrating tablet Dissolve 1 tablet oral every 6 hours asneeded for nausea or vomiting. 6 tablet 0 No current facility-administered medications on file prior to visit. Family History Problem Relation Age of Onset ??? Gout Mother ??? Heart disease Father ??? Stroke Father Social History Tobacco Use ??? Smoking status: Former Smoker ??? Smokeless tobacco: Never Used Substance Use Topics ??? Alcohol use: Not Currently ??? Drug use: Never Allergies Allergen Reactions ??? Methylprednisolone Anaphylaxis and Syncope Syncope OBJECTIVE: Vitals BP 120/70 (BP Location: Left arm, Patient Position: Sitting) Pulse 99 Temp 36 ??C (96.8 ??F) (Temporal) Resp 20 Ht 157.5 cm (5' 2 ) Wt 72.6 kg (160 lb) SpO2 99% BMI 29.26 kg/m?? EXAM: Physical Exam Vitals signs and nursing note reviewed. Constitutional: Appearance: Normal appearance. She is well-developed. HENT: Head: Normocephalic. Eyes: Conjunctiva/sclera: Conjunctivae normal. Pulmonary: Effort: Pulmonary effort is normal. Abdominal: General: Bowel sounds are normal. There is no distension. Palpations: Abdomen is soft. There is no hepatomegaly, splenomegaly or mass. Tenderness: There is generalized abdominal tenderness. There is no guarding or rebound. Hernia: No hernia is present. Musculoskeletal: Normal range of motion. Skin: General: Skin is warm and dry. Neurological: Mental Status: She is alert and oriented to person, place, and time. Psychiatric: Thought Content: Thought content normal. Judgment: Judgment normal. Comments: Pt seems very anxious LABS AND X RAYS: - I reviewed all pertinent labs, imaging, and procedures. GI ASSESSMENT AND PLAN: Diagnoses and all orders for this visit: Epigastric pain (Primary) Assessment & Plan: Epigastric abdominal pain that started 2 days ago. Also having diarrhea, N/V. Will schedule EGD andcolonoscopy. Diarrhea, unspecified type Assessment & Plan: Pt says has at least 10 BM's daily. She says sometimes she wakes up at night with diarrhea as well.She said eating definitely triggers a BM and [...] help her eat. Drink plenty of fluid. Nausea and vomiting, intractability of vomiting not specified, unspecified vomiting type Assessment & Plan: Ongoing for several weeks. Occurs mostly after eating. She can have severe nausea and sometimes vomits. Pt did say that vomiting is mostly self induced as a way to try and get herself to feel better.She denies blood or coffee ground emesis. Scheduled EGD. Liver lesion Assessment & Plan: CT back in Dec 2018 showed multiple small liver lesions and CT done yesterday showed one small 11mmlesion on liver. Will get liver US to further evaluate. Recent CMP showed normal LFT's. Orders: - US Liver; Future BMI 29.0-29.9,adult Anneliese Alvarenga NP documented in this encounter Miscellaneous Notes * Assessment & Plan Note - Anneliese Alvarenga NP - 07/16/2019 11:44 AM CDTAssociated Problem(s): Liver lesion CT back in Dec 2018 showed multiple small liver lesions and CT done yesterday showed one small 11mmlesion on liver. Will get liver US to further evaluate. Recent CMP showed normal LFT's. * Assessment & Plan Note - Anneliese Alvarenga NP - 07/16/2019 11:42 AM CDTAssociated Problem(s): Diarrhea (Resolved 12/27/2020) Pt says has at least 10 BM's daily. She says sometimes she wakes up at night with diarrhea as well.She said eating definitely triggers a BM and [...] help her eat. Drink plenty of fluid. * Assessment & Plan Note - Anneliese Alvarenga NP - 07/16/2019 11:41 AM CDTAssociated Problem(s): Abdominal pain (Resolved 12/27/2020) Epigastric abdominal pain that started 2 days ago. Also having diarrhea, N/V. Will schedule EGD andcolonoscopy. * Assessment & Plan Note - Anneliese Alvarenga NP - 07/16/2019 11:40 AM CDTAssociated Problem(s): Nausea and vomiting (Resolved 12/27/2020) Ongoing for several weeks. Occurs mostly after eating. She can have severe nausea and sometimes vomits. Pt did say that vomiting is mostly self induced as a way to try and get herself to feel better.She denies blood or coffee ground emesis. Scheduled EGD. documented in this encounter Plan of Treatment Not on file documented as of this encounter Results * US Liver (07/17/2019 [...] Electronically signed by: Richard Garcia M.D. Anneliese RenoRosa Alvarenga BODYWORK THERAPIST IMG US PROCEDURES Final Result documented in this encounter Visit Diagnoses Diagnosis Epigastric pain- Primary Abdominal pain, epigastric Diarrhea, unspecified type Nausea and vomiting, intractability of vomiting not specified, unspecified vomiting type Liver lesion Other specified disorders of liver BMI 29.0-29.9,adult Liver lesion Other specified disorders of liver documented in this encounter Historical Medications * This list may reflect changes made after this encounter. predniSONE (DELTASONE) 10 mg tablet Take by mouth 07/21/2019 ergocalciferol (VITAMIN D) 50,000 unit capsule TAKE 1 CAPSULE BY MOUTH ONE TIME PER WEEK 06/21/2019 09/15/2020 escitalopram (LEXAPRO) 10 mg tablet Take 10 mg by mouth daily 07/11/2019 08/26/2019 omeprazole (PriLOSEC) 20 mg capsule Take 20 mg by mouth daily 06/21/2019 01/03/2021 added in this encounter Additional Health Concerns Infection Onset Date Last Indicated Resolved Time Respiratory Infection (BLANCA), contact + droplet Comment:Automatically added due to negative COVID-19 result. 07/08/2019 07/08/2019 07/22/2019 3:0 5 AM CDT documented as of this encounter Care Teams On Site Wastewater Systems Technician Relationship Specialty [place] [address] [address] PCP - General 07/04/19 [place] [address] [address] [address] 11/16/18 documented as of this encounter
--- OUTSIDE RECORDS SUMMARY | 2024-02-24 20:15 | XMS_ITS | Encounter Summary ---
Author Organization [facility] Address [address] [place] [address] Care Team Providers Care Meal Attendant Name Role Phone Huseyin Dangelo MD Unavailable [phone] Brian Mon MD Primary Care Provider + Encounter Details Date Type Department Care Team (Late st Contact Info) Description 07/07/2019 Telephone [facility] Orthopedics and Sports Medicine [facility] [facility] [address] [place] [phone] Chino Zaldivar MD [address] [place] [address] [address] [place] [address] Social History Tobacco Use Types Packs/Day [...] encounter Miscellaneous Notes * Telephone Encounter - Lupis Guaman - 07/07/2019 3:46 PM CDT error documented in this encounter Plan of Treatment Not on file documented as of this encounter Visit Diagnoses Not on filedocumented in this encounter Additional Health Concerns Infection Onset Date Last Indicated Resolved Time COVID: Suspected 06/25/2019 07/07/2019 07/08/2019 2:20 AM CDT documented as of this encounter Care Teams Meal Attendant Relationship Specialty [place] [address] [address] [facility] [place] [address] PCP - General 07/04/19 [place] [address] [address] [facility] [place] [address] 11/16/18 documented as of this encounter
--- OUTSIDE RECORDS SUMMARY | 2024-02-24 20:15 | XMS_ITS | Encounter Summary ---
Author Organization [facility] Address [address] [place] [address] Care Team Providers Care Roof Fitter Name Role Phone Huseyin Dangelo MD Unavailable [phone] Brian Mon MD Primary Care Provider + Encounter Details Date Type Department Care Team (Late st Contact Info) Description 07/17/2019 Telephone [facility] Gastroenterology at [address] [place] [address] Migdalia Bruno MA Social History [...] Telephone Encounter - Anneliese Alvarenga NP - 07/17/2019 11:38 AM CDT Pt called back and had questions about US. She was informed it showed normal liver and no lesions. She asked if gallbladder looked normal and I informed her that CT and US both showed normal gallbladder and biliary system. She is scheduled for colonoscopy and will f/u after this. Pt verbalized understanding. * Telephone Encounter - Migdalia Bruno MA - 07/17/2019 11:07 AM CDT Pt called back and left a message wanting talk to you. She sated she has a couple of questions for you. Call back number [phone]. documented in this encounter Plan of Treatment Not on file documented as of this encounter Visit Diagnoses Not on filedocumented in this encounter Additional Health Concerns Infection Onset Date Last Indicated Resolved Time Respiratory Infection (BLANCA), contact + droplet Comment:Automatically added due to negative COVID-19 result. 07/08/2019 07/08/2019 07/22/2019 3:0 5 AM CDT documented as of this encounter Care Teams Roof Fitter Relationship Specialty [place] [address] [address] PCP - General 07/04/19 [place] [address] [address] [place] [address] 11/16/18 documented as of this encounter
--- OUTSIDE RECORDS SUMMARY | 2024-02-24 20:15 | XMS_ITS | Encounter Summary ---
Author Organization [facility] Address [address] [place] [address] Phone Care Team Providers Care Advertising Copywriter Name Role Phone Huseyin Dangelo MD Unavailable [phone] Brian Mon MD Primary Care Provider + Encounter Details Date Type Department Care Team (Late st Contact Info) Description 07/20/2019 Documentation [facility] Rheumatology [address] [facility] 5th [place] [address] [place] [address] Abhilash Scott MD PhD [address] [place] [address] Social History Tobacco Use Types Packs/Day Years [...] as of this encounter Progress Notes * Abhilash Scott MD PhD - 07/20/2019 7:57 AM CDT Patient called with concern of painful, erythematous patches/papules that have appeared on bilateral elbows that are transient. Have been occurring the past couple of weeks. Denies having them previously. No new exposures, insect bites, or travel. Discussed taking photos of them and sending it through [employer]. Discussed trial of OTC steroid creams if she wants to try something on it in the meantime. She is also concerned about other autoimmune disease she might have like scleroderma. She does not puffy hands and digits for number of years. Discussed various autoimmune diseases with her includingSLE and Scleroderma and went over her past serologies and how everything so far seems most consistent with SLE. She also discussed ongoing GI issues and has EGD and c-scope scheduled for this week and discussed how that will be useful in determining the etiology of her symptoms. documented in this encounter Plan of Treatment Not on file documented as of this encounter Visit Diagnoses Not on filedocumented in this encounter Additional Health Concerns Infection Onset Date Last Indicated Resolved Time Respiratory Infection (BLANCA), contact + droplet Comment:Automatically added due to negative COVID-19 result. 07/08/2019 07/08/2019 07/22/2019 3:0 5 AM CDT documented as of this encounter Care Teams Advertising Copywriter Relationship Specialty [place] [address] [address] PCP - General 07/04/19 [place] [address] [address] [address] 11/16/18 documented as of this encounter
--- OUTSIDE RECORDS SUMMARY | 2024-02-24 20:15 | XMS_ITS | Encounter Summary ---
Author Organization [facility] Address [address] [place] [address] Care Team Providers Care 3Rd Pressman Name Role Phone Huseyin Dangelo MD Unavailable [phone] Brian Mon MD Primary Care Provider + Reason for Visit * Reason Comments Pain Pain Encounter Details Date Type Department Care Team (Late st Contact Info) Description 07/09/2019 7:00 AM CDT Office Visit [facility] Hand Surgery [address] [facility] [address] [place] [phone] Chino Zaldivar MD [address] [place] [address] Laceration of flexor muscle, fascia and tendon [...] Progress Notes * Chino Zaldivar MD - 07/09/2019 7:00 AM CDT Patient ID: Carito Rausch is a 29 y.o. female. Visit Date: 07/09/2019 Chief Complaint: Wrist and hand pain HPI: This 29-year-old female is well known to me after having a traumatic laceration to the median nerveof the right hand and undergoing 2 separate procedures the 1st of which was a repair the 2nd of which was an exploration and lysis of adhesions. She was doing extremely well when I saw her last in January of 2019 with 0/10 pain but states over the last several weeks she has had increasing pain andhas been to the emergency room several times. She reports no fevers or chills no feeling of instability no traumatic events. Of note she does take prednisone daily for lupus. She is taking tramadol for pain at this time that was given to her by her medical doctors. Review of Systems Constitutional: Negative for chills and fever. HENT: Negative for facial swelling and tinnitus. Respiratory: Negative for shortness of breath. Cardiovascular: Negative for chest pain and palpitations. Skin: Negative for color change. Neurological: Negative for seizures. Psychiatric/Behavioral: Negative for self-injury. There were no vitals taken for this visit. Physical Exam: Her gait is within normal limits. Her mood and affect are appropriate. She is well nourished. She is alert and oriented to time and place. Her right wrist range of motion motor strength stability is within normal limits she has diminished light touch at the radial digits of the hand. Her previous incisions heal well although just proximal to her incision at the volar surface of the wrist there norma slight mass formation with a Tinel sign. Xray / Imaging: None 1. Laceration of flexor muscle, fascia and tendon of right little finger at wrist and hand level, initial encounter PLAN: She states there was an ultrasound that was performed in 1 of her urgent care visits to rule out a bilateral upper extremity DVT as a result of her hand swelling and she states that was negative. At this point we can order an MRI to assess the area around her nerve repair. To assess a mass formation. I will see her after the MRI and discuss further care and she agrees with this plan Procedures documented in this encounter Plan of [...] documented as of this encounter Care Teams 3Rd Pressman Relationship Specialty [place] [address] [address] PCP - General 07/04/19 [place] [address] [address] [address] 11/16/18 documented as of this encounter
--- OUTSIDE RECORDS SUMMARY | 2024-02-24 20:15 | XMS_ITS | Encounter Summary ---
Author Organization [facility] Address [address] [place] [address] Phone Care Team Providers Care Population Geneticist Name Role Phone Huseyin Dangelo MD Unavailable [phone] Brian Mon MD Primary Care Provider + Encounter Details Date Type Department Care Team (Late st Contact Info) Description 07/07/2019 Orders Only [facility] Scanning, Provider [...] Date/Time Associated Diagnosis Comments SCAN - RADIOLOGY/IMAGING 07/07/2019 SCAN - LABS 07/07/2019 documented in this encounter Results * SCAN - LABS (07/07/2019) us Provider Scanning Final Result * SCAN - RADIOLOGY/IMAGING (07/07/2019) Anatomical Region Laterality Modality Other us Provider Scanning Final Result documented in this encounter Visit Diagnoses Not on filedocumented in this encounter Additional Health Concerns Infection Onset Date Last Indicated Resolved Time COVID: Suspected 06/25/2019 07/07/2019 07/08/2019 2:20 AM CDT Respiratory Infection (BLANCA), contact + droplet Comment:Automatically added due to negative COVID-19 result. 07/08/2019 07/08/2019 07/22/2019 3:0 5 AM CDT documented as of this encounter Care Teams Population Geneticist Relationship Specialty [place] [address] [address] [address] PCP - General 07/04/19 [place] [address] [address] [address] 11/16/18 documented as of this encounter
--- OUTSIDE RECORDS SUMMARY | 2024-02-24 20:15 | XMS_ITS | Encounter Summary ---
Author Organization [facility] Address [address] [place] [address] Care Team Providers Care Marine Equipment Test Engineer Name Role Phone Huseyin Dangelo MD Unavailable [phone] Brian Mon MD Primary Care Provider + Encounter Details Date Type Department Care Team (Late st Contact Info) Description 07/16/2019 Telephone [facility] Gastroenterology at [address] [place] [address] Migdalia Bruno MA Social History [...] Telephone Encounter - Migdalia Bruno MA - 07/16/2019 10:59 AM CDT Pt was in the office today and is scheduled for an EGD and Colonoscopy with Dr. Denis on 07-29-2019 at 12:00 pm with an arrival at 11:00am. Prep instructions were given to pt and she will call ifshe has any questions. COVID test is required 2-3 days prior to procedure pt informed and order putin. Last colonoscopy: first one Family history colon cancer (if yes, relationship to pt): yes, grandfather on both mother and father side Personal history colon polyps or colon cancer: n/a Pt on blood thinner (if yes, list medication and reason for taking): no Has pt had recent stent placement within the last year: no Pt have pacemaker/defibrillator: no Pt diabetic (if yes, insulin or oral meds): no Pt have kidney disease or on dialysis: no Pt on iron: yes, informed to stop taking one week prior to procedures Hx of Constipation: no Mechanical Heart valve: no Instructed pt to call with any medical changes and/or medications/insurance. documented in this encounter Plan of Treatment Not on file documented as of this encounter Visit Diagnoses Diagnosis Nausea and vomiting, intractability of vomiting not specified, unspecified vomiting type- Primary Epigastric pain Abdominal pain, epigastric Gastroesophageal reflux disease, esophagitis presence not specified Diarrhea, unspecified type Abdominal pain, unspecified abdominal location Pre-procedure lab exam Pre-procedural laboratory examination documented in this encounter Orders Case Request Count Last Ordered Date First Orde red Date CASE REQUEST GI 1 07/16/2019 documented in this encounter Additional Health Concerns Infection Onset Date Last Indicated Resolved Time Respiratory Infection (BLANCA), contact + droplet Comment:Automatically added due to negative COVID-19 result. 07/08/2019 07/08/2019 07/22/2019 3:0 5 AM CDT documented as of this encounter Care Teams Marine Equipment Test Engineer Relationship Specialty [place] [address] [address] [address] PCP - General 07/04/19 [place] [id number] [address] [address] 11/16/18 documented as of this encounter
--- OUTSIDE RECORDS SUMMARY | 2024-02-24 20:15 | XMS_ITS | Encounter Summary ---
Author Organization [facility] Address [address] [place] [address] Care Team Providers Care Maid Cleaning Cooking Name Role Phone Huseyin Dangelo MD Unavailable [phone] Brian Mon MD Primary Care Provider + Reason for Visit * Reason Onset Date Comments Test Results 07/07/2019 Encounter Details Date Type Department Care Team (Late st Contact Info) Description 07/07/2019 Telephone [facility] [address] [place], [place] [id number] [place] [address] [place] [address] Test Results Social History Tobacco Use Types [...] Miscellaneous Notes * Telephone Encounter - Leti Garcia RN - 07/07/2019 9:34 AM CDT Negative Covid test result-patient was called and message left on voicemail to check my chart message. documented in this encounter Plan of Treatment Not on file documented as of this encounter Visit Diagnoses Not on filedocumented in this encounter Additional Health Concerns Infection Onset Date Last Indicated Resolved Time COVID: Suspected 06/25/2019 07/07/2019 07/08/2019 2:20 AM CDT documented as of this encounter Care Teams Maid Cleaning Cooking Relationship Specialty [place] [address] [address] [address] PCP - General 07/04/19 [place] [address] [address] [address] 11/16/18 documented as of this encounter
--- OUTSIDE RECORDS SUMMARY | 2024-02-24 20:15 | XMS_ITS | Encounter Summary ---
Author Organization [facility] Address [address] [place] [address] Phone Care Team Providers Care Home Health Registered Nurse Name Role Phone Huseyin Dangelo MD Unavailable [phone] Brian Mon MD Primary Care Provider + Encounter Details Date Type Department Care Team (Late st Contact Info) Description 07/07/2019 Telephone [facility] Rheumatology [address] [facility] [place] [address] [place] [address] Carolina Delarosa MD [address] [facility] [address] [place] [address] Social History Tobacco Use Types [...] Telephone Encounter - Carolina Delarosa MD - 07/07/2019 3:59 PM CDT She is having a flare. I had adv her pred 40 but she only take 30 mg. She went to ER twice - once got Toradol. Once decadron She also tapered pred to 10 mg I have advised the patient Benlysta but she needs to complete her labs and TB test prior to that. Iexplained to the patient in the meanwhile she should take prednisone as much as it takes for her winston reasonably controlled. She tells me that she is flaring and is agreeable to take prednisone 40 mg right now. She also tells me that the Decadron she got in the ER helps her and therefore she will start taking the higher dose of prednisone tomorrow Incident she had a CRP from [facility] which is 0.5. She also has a normal CBC and CMP documented in this encounter Plan of Treatment Not on file documented as of this encounter Visit Diagnoses Not on filedocumented in this encounter Additional Health Concerns Infection Onset Date Last Indicated Resolved Time COVID: Suspected 06/25/2019 07/07/2019 07/08/2019 2:20 AM CDT documented as of this encounter Care Teams Home Health Registered Nurse Relationship Specialty [place] [address] [address] [place] [id number] PCP - General 07/04/19 [place] [address] [address] [address] 11/16/18 documented as of this encounter
--- OUTSIDE RECORDS SUMMARY | 2024-02-24 20:15 | XMS_ITS | Encounter Summary ---
Author Organization [facility] Healthcare Address [address] [place] [address] Care Team Providers Care Flat Lock Operator Name Role Phone Huseyin Dangelo MD Unavailable [phone] Gayla Barker NP Primary Care Provider [phone] Reason for Visit * Reason Comments Dizziness Shortness of Breath Encounter Details Date Type Department Care Team (Late st Contact Info) Description 06/25/2019 6:21 PM CDT - 06/25/2019 9:33 PM CDT Emergency [facility] Emergency Department [address] [place] [id number] Margarita Cullen MD [address] [place] [id number] Dizziness (Primary Dx); Generalized anxiety disorder Discharge Disposition: Discharge to home or self [...] or suspected to have Coronavirus / COVID-19? Unable to assess 05/28/2019 1:00 PM CDT documented as of this encounter Last Filed Vital Signs Vital Sign Reading Time Taken Comments Blood Pressure 130/92 06/25/2019 9:00 PM CDT Pulse 96 06/25/2019 9:00 PM CDT Temperature 36.8 ??C (98.2 ??F) 06/25/2019 6:23 PM CD T Respiratory Rate 18 06/25/2019 6:23 PM CDT Oxygen Saturation 100% 06/25/2019 9:00 PM CDT Inhaled Oxygen Concentration - - Weight 70.3 kg (155 lb) 06/25/2019 6:17 PM CDT Height 157.5 cm (5' 2 ) 06/25/2019 6:17 PM CDT Body Mass Index 28.35 06/25/2019 6:17 PM CDT documented in this encounter Discharge Diagnoses Diagnosis Generalized anxiety disorder - GENERALIZED ANXIETY DISORDER Dizziness and giddiness - DIZZINESS AND GIDDINESS Rheumatoid arthritis, unspecified (HCC) - RHEUMATOID ARTHRITIS, [...] cannot be sent through Care Everywhere. * Dizziness, Uncertain Cause (Cameroonian) * Generalized Anxiety Disorder (General Information) (Cameroonian) documented in this encounter Medications at Time of Discharge valACYclovir (VALTREX) 1 gram tablet Take 1 tablet (1,000 mg total) by mouth 2 (two) times a day for 7 days 14 tablet 06/22/2019 0 albuterol (PROAIR RESPICLICK) 90 mcg/actuation inhalerIndications:Ac sony Asthma Attack Inhale 2 puffs every 6 [...] Take 100 mg by mouth nightly 0 omeprazole (PriLOSEC) 20 mg capsule Take 20 mg by mouth daily 06/21/2019 1 ondansetron ODT (ZOFRAN-ODT) 4 mg disintegrating tablet Dissolve 1 tablet oral every 6 hours as needed for nausea or vomiting. 6 tablet 05/28/2019 0 predniSONE (DELTASONE) 5 mg tabletIndications:aut oimmune disease Take 12.5 mg by mouth daily 0 documented as of this encounter Discharge Disposition Disposition Code Departure Means Destination Discharge to home or self care documented in this encounter ED Notes * Margarita Cullen MD - 06/25/2019 6:49 PM CDT HPI Chief Complaint Patient presents with ??? Dizziness ??? Shortness of Breath Nursing note reviewed HPI 6:49 PM Carito Rausch a 29 y.o. female with a PMHx that includes lupus, fibromyalgia, RA and CKDpresents to the ED c/o dizziness x 1-2 weeks w/associated 3/10 left sided paz. Occasionally sob precedes the dizziness. The dizziness makes her feel as if she may pass out. She states she had an MRI today at [facility]. Pt denies n/v. There are no alleviating or exacerbating factors reported. No other complaints or injuries reported at this time. EMR shows patient evaluation for c/o dizziness and sob at [facility] on 06/18. At that time her c/o dizziness was dxas a medication reaction due to recent adjustment of lupus meds. Sochx: works at a car [employer] Shx: appendectomy Famhx: stroke, heart disease, gout PCP: Gayla Barker NP Patient History Past Medical History: Diagnosis Date [...] Genitourinary: Negative for dysuria and frequency. Musculoskeletal: Negative for arthralgias, back pain, myalgias and neck pain. Skin: Negative for rash and wound. Neurological: Positive for dizziness and headaches. Negative for syncope, weakness and light-headedness. All other systems reviewed and are negative. Physical Exam ED Triage Vitals [06/25/19 1823] Temp Pulse Resp BP SpO2 36.8 ??C (98.2 ??F) 90 18 129/88 98 % Temp src Heart Rate Source Patient Position BP Location FiO2 (%) Tympanic -- -- Left arm -- Physical Exam Vitals signs and nursing [...] sounds. No wheezing or rales. Abdominal: General: There is no distension. Palpations: Abdomen is soft. Tenderness: There is no abdominal tenderness. Musculoskeletal: Normal range of motion. General: No tenderness or deformity. Skin: General: Skin is warm and dry. Capillary Refill: Capillary refill takes less than 2 seconds. Coloration: Skin is not pale. Findings: No erythema or rash. Neurological: Mental Status: She is alert and oriented to person, place, and time. Psychiatric: Behavior: Behavior normal. Procedures MDM Labs Reviewed URINALYSIS AND REFLEX TO MICROSCOPIC AND CULTURE - Abnormal Result Value Color, ur Straw Clarity, ur Clear Specific gravity, ur 1.006 (*) pH, urine 6.0 Protein, ur ql Negative Glucose, ur ql Negative Ketones, ur Negative Bilirubin, ur Negative Blood, ur Negative Urobilinogen, ur <2.0 Nitrite, ur Negative Leukocyte esterase, ur Negative UA reflex comment Value: Reflex conditions for microscopic UA and culture not met. Narrative: Urine pH is affected by diet, medications, systemic acid-base disturbances, and renal tubular function. pH may affect urinary stone formation. For example, urine pH below 6.0 may help reduce the tendency for calcium phosphate stones and pH greater than 6.0 may reduce the tendency for uric acid stone formation. Source: [facility] Couple.Last revised 03-08-2017 CBC WITH AUTO DIFFERENTIAL - Abnormal WBC 6.3 Hgb 11.8 (*) Hct 37.4 Plt 312 MPV 9.4 RBC 4.18 MCV 89.5 MCH 28.2 MCHC 31.6 (*) RDW CV 14.6 RDW SD 48.0 COMPREHENSIVE METABOLIC PANEL - Abnormal Sodium 139 Potassium, pl 4.1 Chloride 102 CO2 22 Anion gap 15 BUN 13 Creatinine 0.56 (*) Glucose 97 Calcium 9.3 Bilirubin, total 0.2 Protein, pl 7.5 Albumin 4.2 Alk phos 45 ALT 10 AST 16 DIFFERENTIAL AUTO - Abnormal Neutrophil abs 5.1 Imm gran abs 0.0 Lymphocyte abs 0.7 (*) Monocyte abs 0.4 Eosinophil abs 0.0 Basophil abs 0.0 Neutrophil pct 80.8 Imm gran pct 0.3 Lymphocyte pct 11.4 Monocyte pct 7.0 Eosinophil pct 0.3 Basophil pct 0.2 POCT HCG, URINE - Normal HCG, ur, POC Negative Lot Number [id number] QC Backgroud Clear Acceptable QC Control Line Acceptable EGFR GFR 128 CT Head WO Contrast Final Result Negative study. No bleed or mass. Results transmitted to the ER by [facility]. Electronically signed by: Richard Garcia M.D. BP 130/92 Pulse 96 Temp 36.8 ??C (98.2 ??F) (Tympanic) Resp 18 Ht 157.5 cm (5' 2 ) Wt 70.3 kg (155 lb) SpO2 100% BMI 28.35 kg/m?? [facility] ED Course as of Jun 24 2249 Time: 06/24 1958 Comment: Updated patient on care plan. By: Clarisse Hahn Time: 06/24 2099 Comment: CT head reveals no evidence of bleeding or masses. By: Clarisse Hahn Time: 06/24 2110 Comment: Re-evaluated pt comfort and reviewed recently obtained labs and imaging with patient. Recommended patient seek Neurology evaluation. Discussed plan for discharge, pt is agreeable. Patient stable for discharge at this time. By: Clarisse Hahn Dizziness Generalized anxiety disorder This note is prepared by Clarisse Hahn, acting as a scribe for Dr. Margarita Cullen MD. I electronically signed this note at 6:49 PM on 06/25/2019. I, Dr. Margarita Cullen MD have personally performed the services described in the documentation, reviewed the documentation, as recorded by the scribe in my presence, and it accurately and completely records my words and actions. Margarita Cullen MD 06/25/19 2250 * Taylor Boone RN - 06/25/2019 6:15 PM CDT Also c/o SOB * Taylor Boone RN - 06/25/2019 6:14 PM CDT Dizziness x 1 week. Was seen in ED last week, had MRI of brain today documented in this encounter Plan of Treatment Not on file documented as of this encounter Procedures Procedure Name Priority Date/Time Associated Diagnosis Comments CT HEAD WO CONTRAST ED 06/25/2019 8 :27 PM CDT POCT HCG, URINE Routine 06/25/2019 7:50 PM CDT EGFR STAT 06/25/2019 7:24 PM CDT DIFFERENTIAL AUTO STAT 06/25/2019 7:2 4 PM CDT URINALYSIS AND REFLEX TO MICROSCOPIC AND CULTURE STAT 06/25/2019 7:24 PM CDT CBC WITH AUTO DIFFERENTIAL STAT 06/25/2019 7:24 PM CDT COMPREHENSIVE METABOLIC PANEL STAT 06/25/2019 7:24 PM CDT documented in this encounter Results * CT Head WO Contrast (06/25/2019 8:27 PM CDT) Anatomical Region Laterality Modality Head and Neck N/A Computed Tomogra phy 06/25/2019 10:3 7 PM CDT Impressions 06/25/2019 10:39 PM CDT Negative study. No bleed or mass. Results transmitted to the ER by [facility]. Electronically signed by: Richard Garcia M.D. Narrative 06/25/2019 10:39 PM CDT EXAMINATION: CT HEAD WO CONTRAST HISTORY: The patient is a 29-year-old female who presents with dizziness of one week duration. Comparison made with the previous study dated 03/18/2019. TECHNIQUE: Axial images were obtained through the brain with thin sections and viewed both at soft tissue and bone window settings. Following this coronal and sagittal reconstructions were performed. FINDINGS: The fourth, third and lateral ventricles are normal in size and position. Cerebral sulci are not prominent. No intracerebral hemorrhage or extra-axial fluid collection is seen. Images obtained in the coronal and sagittal planes adds no further information. Axial images obtained at bone window settings reveal the cranial vault to be intact. Mastoid air cells and paranasal sinuses are normally aerated. Procedure Note Richard Garcia MD - 06/25/2019 EXAMINATION: CT HEAD WO CONTRAST HISTORY: The patient is a 29-year-old female who presents with dizziness of one week duration. Comparison made with the previous study dated 03/18/2019. TECHNIQUE: Axial images were obtained through the brain with thin sections and viewed both at soft tissue and bone window settings. Following this coronal and sagittal reconstructions were performed. FINDINGS: The fourth, third and lateral ventricles are normal in size and position. Cerebral sulci are not prominent. No intracerebral hemorrhage or extra-axial fluid collection is seen. Images obtained in the coronal and sagittal planes adds no further information. Axial images obtained at bone window settings reveal the cranial vault to be intact. Mastoid air cells and paranasal sinuses are normally aerated. IMPRESSION: Negative study. No bleed or mass. Results transmitted to the ER by [facility]. Electronically signed by: Richard Garcia M.D. Margarita Cullen MD IM CT PROCEDURES Final Result * POCT hCG, urine (06/25/2019 7:50 PM CDT) HCG, ur, POC Negative Lot Number [id number] QC Backgroud Clear Acceptable QC Control Line Acceptable Urine 06/25/2019 7:50 PM CDT Margarita Cullen MD POINT OF CARE TEST GREGORY RABAURORA Final Result * eGFR (06/25/2019 7:24 PM CDT) eGFR 128 mL/min/1.7 3 m2 [facility] Comment: Interpretive Data Reference Interval Normal ?>/= 90 mL/min/1.73m2 Mildly decreased* ? 60 - 89 mL/min/1.73m2 Mildly to moderately decreased ?45 - 59 mL/min/1.73m2 Moderately to severely decreased ??30 - 44 mL/min/1.73m2 Severely decreased ?15 - 29 mL/min/1.73m2 Kidney Failure ?< 15 ??mL/min/1.73m2 *Relative to young adult level If -Greenlandic multiply value by 1.16. Estimated glomerular filtration [...] Current interpretive data was last reviewed 2015. Testing performed by: [facility], [address], [place] [address] Blood specimen (specimen) 06/25/2019 7:24 PM CDT 06/25/2019 7:31 PM CDT Margarita Cullen MD LAB BLOOD ORDERABLES Fi nal Result [facility] [address] Department [place] [address] * (ABNORMAL) Differential, auto (06/25/2019 7:24 PM CDT) Neutrophil abs 5.1 1.7 - 6.5 K/cumm [facility] Comment:Testing performed by : [facility], [facility], [place] [address] Imm gran abs 0.0 0.0 - 0.1 K/cumm [facility] Comment:Testing performed by : [address], [place] [address] Lymphocyte abs 0.7(L) 0.8 - 3.3 K/cumm [facility]ER Comment:Testing performed by : [facility], [address] [place] [address] [address], [place] [address] Monocyte abs 0.4 0.2 - 0.8 K/cumm [facility]ER Comment:Testing performed by : [facility], [address] [place] [address] [address], [place] [address] Eosinophil abs 0.0 0.0 - 0.5 K/cumm [facility]ER Comment:Testing performed by : [facility], [address] [place] [address] [address], [place] [address] Basophil abs 0.0 0.0 - 0.1 K/cumm [facility]ER Comment:Testing performed by : [facility], [facility], [place] [address] Neutrophil pct 80.8 % [facility] Comment: Interpretive Data Percent cell count reference ranges are not reported, since discordance with absolute values may lead to misinterpretation of CBC data. Current Interpretive Data was last revised on 2017. Testing performed by: [facility], [address] [place] [address] [address], [place] [address] Imm gran pct 0.3 % [facility] Comment: Interpretive Data Percent cell count reference ranges are not reported, since discordance with absolute values may lead to misinterpretation of CBC data. Current Interpretive Data was last revised on 2017. Testing performed by: [facility], [address] [place] [address] [address], [place] [address] Lymphocyte pct 11.4 % [facility] Comment: Interpretive Data Percent cell count reference ranges are not reported, since discordance with absolute values may lead to misinterpretation of CBC data. Current Interpretive Data was last revised on 2017. Testing performed by: [address], [place] [address] Monocyte pct 7.0 % [facility] Comment: Interpretive Data Percent cell count reference ranges are not reported, since discordance with absolute values may lead to misinterpretation of CBC data. Current Interpretive Data was last revised on 2017. Testing performed by: [address], [place] [address] Eosinophil pct 0.3 % [facility] Comment: Interpretive Data Percent cell count reference ranges are not reported, since discordance with absolute values may lead to misinterpretation of CBC data. Current Interpretive Data was last revised on 2017. Testing performed by: [address], [place] [address] Basophil pct 0.2 % [facility] Comment: Interpretive Data Percent cell count reference ranges are not reported, since discordance with absolute values may lead to misinterpretation of CBC data. Current Interpretive Data was last revised on 2017. Testing performed by: [address], [place] [address] Blood specimen (specimen) 06/25/2019 7:24 PM CDT 06/25/2019 7:31 PM CDT Margarita Cullen MD LAB BLOOD ORDERABLES Fi nal Result [facility] [address] Department of Laboratories [place], [place] [id number] * (ABNORMAL) Urinalysis reflex to microscopic and culture Urine (06/25/2019 7:24 PM CDT) Color, ur Straw Yellow [facility] Comment:Testing performed by : [address], [place] [address] Clarity, ur Clear Clear [facility] Comment:Testing performed by : [address], [place] [address] Specific gravity, ur 1.006(L) 1.010 - 1.025 [facility] Comment:Testing performed by : [address], [place] [address] pH, urine 6.0 [facility] CH Comment:Testing performed by : [facility], [address] [place] [address] Protein, ur ql Negative Negative [facility] CH Comment:Testing performed by : [facility], [address] [place] [address] Glucose, ur ql Negative Negative [facility] CH Comment:Testing performed by : [facility], [address] [address] Ketones, ur Negative Negative [facility] CH Comment:Testing performed by : [facility], [address] [place] [address] Bilirubin, ur Negative Negative [facility] CH Comment:Testing performed by : [facility], [facility] [place] [address] Blood, ur Negative Negative [facility] CH Comment:Testing performed by : [facility], [address], [place] [address] Urobilinogen, ur <2.0 <2.0 mg/dL [facility] CH Comment:Testing performed by : [facility], [facility] [place] [address] Nitrite, ur Negative Negative [facility] CH Comment:Testing performed by : [facility], [facility] [place] [address] Leukocyte esterase, ur Negative Negative [facility] CH Comment:Testing performed by : [facility], [facility] [place] [address] UA reflex comment Reflex conditions for microscopic UA and culture not met. [facility] CH Comment:Testing performed by : [facility], [address] [place] [address] Urine 06/25/2019 7:24 PM CDT 06/25/2019 7:32 PM CDT Narrative [facility] - 06/25/2019 7:37 PM CDT ?? Urine pH is affected by diet, medications, systemic acid-base disturbances, and renal tubular function. ??pH may affect urinary stone formation. ??For example, urine pH below 6.0 may help reduce the tendency for calcium phosphate stones and pH greater than 6.0 may reduce the tendency for uric acid stone formation. Source: [employer]. Last revised 03-08-2017 Margarita Cullen MD LAB MICROBIOLOGY - GENE RAL ORDERABLES Final Result [facility] [address] Department [place] [address] * (ABNORMAL) Comprehensive metabolic panel (06/25/2019 7:24 PM CDT) Sodium 139 135 - 145 mmol/L [facility] Comment:Testing performed by : [address], [place] [address] Potassium, pl 4.1 3.3 - 4.9 mmol/L [facility] Comment:Testing performed by : [address], [place] [address] Chloride 102 97 - 110 mmol/L [facility] Comment:Testing performed by : [address], [place] [address] CO2 22 22 - 32 mmol/L [facility] Comment:Testing performed by : [address], [place] [address] Anion gap 15 2 - 15 mmol/L [facility] Comment:Testing performed by : [address], [place] [address] BUN 13 8 - 25 mg/dL [facility] Comment:Testing performed by : [facility] [place] [address] Creatinine 0.56(L) 0.60 - 1.10 mg/dL [facility] Comment:Testing performed by : [facility] [place] [address] Glucose 97 70 - 199 mg/dL [facility] Comment: Interpretive Data Fasting glucose >/= [...] Current interpretive data was last revised 2017. Testing performed by: [facility] [place] [address] Calcium 9.3 8.5 - 10.3 mg/dL [facility]ER Comment:Testing performed by : [address], [place] [address] Bilirubin, total 0.2 0.1 - 1.2 mg/dL [facility] CH Comment:Testing performed by : [address], [place] [address] Protein, pl 7.5 6.5 - 8.5 g/dL [facility] CH Comment:Testing performed by : [address], [place] [address] Albumin 4.2 3.5 - 5.0 g/dL [facility] CH Comment:Testing performed by : [address], [place] [address] Alk phos 45 40 - 130 Units/L [facility] CH Comment:Testing performed by : [address], [place] [address] ALT 10 7 - 45 Units/L [facility] Comment:Testing performed by : [address], [place] [address] AST 16 10 - 45 Units/L [facility] Comment:Testing performed by : [address], [place] [address] Blood specimen (specimen) 06/25/2019 7:24 PM CDT 06/25/2019 7:31 PM CDT Margarita Cullen MD LAB BLOOD ORDERABLES Fi nal Result [facility] [address] Department [place] [address] * (ABNORMAL) CBC with auto differential (06/25/2019 7:24 PM CDT) WBC 6.3 3.8 - 9.9 K/cumm [facility] CH Comment:Testing performed by : [address], [place] [address] Hgb 11.8(L) 11.9 - 15.5 g/dL [facility] CH Comment:Testing performed by : [address], [place] [address] Hct 37.4 35.6 - 45.5 % [facility] CH Comment:Testing performed by : [address], [place] [address] Plt 312 150 - 400 K/cumm [facility]ERNER Comment:Testing performed by : [facility] [address] [place], [place] [address] MPV 9.4 9.1 - 12.3 fL [facility] Comment:Testing performed by : [facility] [address] [place], [place] [address] RBC 4.18 3.90 - 5.20 M/cumm [facility] CH Comment:Testing performed by : [facility] [place] [address] MCV 89.5 81.3 - 96.4 fL [facility] Comment:Testing performed by : [address], [place] [address] MCH 28.2 27.1 - 33.3 pg [facility] Comment:Testing performed by : [facility] [place] [address] MCHC 31.6(L) 32.3 - 35.7 g/dL [facility] Comment:Testing performed by : [facility] [address] [place] [address] RDW CV 14.6 11.1 - 14.9 % [facility] Comment:Testing performed by : [facility] [address] [place], [place] [address] RDW SD 48.0 35.7 - 48.1 fL [facility] Comment:Testing performed by : [facility] [address] [place] [address] Blood specimen (specimen) 06/25/2019 7:24 PM CDT 06/25/2019 7:31 PM CDT Margarita Clulen MD LAB BLOOD ORDERABLES nal Result [facility] [address] Department [place] [address] documented in this encounter Visit Diagnoses Diagnosis Dizziness- Primary Dizziness and giddiness Generalized anxiety disorder documented in this encounter Administered Medications Inactive Administered Medications - up to 3 most recent administrations Medication Order MAR Action Action Date Dose Rate Site acetaminophen (TYLENOL) tablet 1,000 mg 1,000 mg, oral, Once, On Sun06/25/19 at 2105, For 1 dose Given 06/25/2019 9:14 PM CDT 1,000 mg documented in this encounter Active and Recently Administered Medications Times are shown in CDT. Scheduled Medication Order 06/23/2019 06/24/2019 06/25/2019 acetaminophen (TYLENOL) tablet 1,000 mg (COMPLETED) 1,000 mg, oral, Once, On Sun06/25/19 at 2105, For 1 dose 2114 (Given - Provid er: Shauna Griffiths RN) documented in this encounter Orders Medications Ordered That Omer ht Not Have Been Administered Count Last Ordered Date First Ordered Date acetaminophen (TYLENOL) tablet 1,000 mg 1 0 06/25/2019 documented in this encounter Additional Health Concerns Infection Onset Date Last Indicated Resolved Time COVID: Suspected 06/25/2019 07/07/2019 07/08/2019 2:20 AM CDT documented as of this encounter Care Teams Flat Lock Operator Relationship Specialty [place] [address] [address] [place] [address] PCP - General 06/25/19 07/03/19 [place] [address] [address] [facility] [place] [address] 11/16/18 documented as of this encounter
--- OUTSIDE RECORDS SUMMARY | 2024-02-24 20:15 | XMS_ITS | Encounter Summary ---
Author Organization [facility] Address [address] [place] [address] Phone Care Team Providers Care Industrial Order Clerk Name Role Phone Huseyin Dangelo MD Unavailable [phone] Brian Mon MD Primary Care Provider + Encounter Details Date Type Department Care Team (Late st Contact Info) Description 07/04/2019 Telephone [facility] Rheumatology [address] [facility] [address] [place] [address] Augusta Duque RMA Social History [...] Telephone Encounter - Augusta Duque MA - 07/04/2019 12:28 PM CDT LMOR for pt to call back to make f/u appt with Dr. Delarosa. documented in this encounter Plan of Treatment Not on file documented as of this encounter Visit Diagnoses Not on filedocumented in this encounter Additional Health Concerns Infection Onset Date Last Indicated Resolved Time COVID: Suspected 06/25/2019 07/07/2019 07/08/2019 2:20 AM CDT documented as of this encounter Care Teams Industrial Order Clerk Relationship Specialty [place] [address] [address] [place] [address] PCP - General 07/04/19 [place] [address] [address] [facility] [place] [address] 11/16/18 documented as of this encounter
--- OUTSIDE RECORDS SUMMARY | 2024-02-24 20:15 | XMS_ITS | Encounter Summary ---
Author Organization [facility] Address [address] [place] [address] Phone Care Team Providers Care Back Feeder [employer] Layup Line Name Role Phone Huseyin Dangelo MD Unavailable [phone] Gayla Barker NP Primary Care Provider [phone] Encounter Details Date Type Department Care Team (Late st Contact Info) Description 07/03/2019 9:00 AM CDT Telemedicine [facility] Rheumatology [address] [facility] Medicine 5th [place] [address] [place] [address] Lupus (CMS/HCC) (Primary Dx) Social History Tobacco [...] Date End Date predniSONE (DELTASONE) 1 mg tablet Please take 2 tablets at night for 2 weeks and then 1 tablet at night for 2 weeks and stop 50 tablet 07/02/2019 0 documented in this encounter Progress Notes * Carolina Delarosa MD - 07/03/2019 9:00 AM CDT PATIENT NAME: Carito Rausch : 1990 07/02/2019 This was a telemedicine visit with Carito Rausch alone which took place via a real-time video connection (Zoom/similar). During the visit, I was located in office at and the patient was locatedat home in [place]. The session started at 9.10 AMand ended at 9.55 AMN. The patient has been informed that the [...] 2nd opinion for lupus by her current gym instructor. Dr. Lobo. The patient underwent of spontaneous [...] She also has a positive double-stranded DNA, WHEEL TUNER antibody and a low C4 and C3 [...] ankylosing spondylitis Personal history occasional marijuana use ALLERGIES: Allergies Allergen Reactions ??? Methylprednisolone Anaphylaxis and Syncope Syncope CURRENT MEDICATION: Current Outpatient Medications: ??? albuterol (PROAIR RESPICLICK) 90 mcg/actuation inhaler, Inhale 2 puffs every 6 (six) hours as needed for wheezing, Disp: , Rfl: ??? ALPRAZolam (XANAX) 0.25 mg tablet, Take 0.25 mg by mouth 3 (three) times a day as needed , Disp: , Rfl: ? ? aluminum-magnesium hydroxide-simethicone & diphenhydramine 1:1 (MAGIC MOUTHWASH) suspension, Take 10 mL by mouth every 8 (eight) hours as needed (mouth ulcers) Swish and spit every 8 hours asneeded for mouth pain., Disp: 240 mL, Rfl: 0 ??? diphenoxylate-atropine (LOMOTIL) 2.5-0.025 mg per tablet, Take 1 tablet by mouth 4 (four) timesa day as needed for diarrhea, Disp: 20 tablet, Rfl: 0 ??? folic acid (FOLVITE) 1 mg tablet, Take 1 mg by mouth daily, Disp: , Rfl: ??? hydroxychloroquine (PLAQUENIL) 200 mg tablet, Take 100 mg by mouth nightly, Disp: , Rfl: ??? ondansetron ODT (ZOFRAN-ODT) 4 mg disintegrating tablet, Dissolve 1 tablet oral every 6 hours as needed for nausea or vomiting., Disp: 6 tablet, Rfl: 0 ??? predniSONE (DELTASONE) 5 mg tablet, Take 12.5 mg by mouth daily, Disp: , Rfl: PHYSICAL EXAM: There were no vitals taken for this visit. Physical Exam Physical examination could not be performed as this was a video visit. The patient did seem to havesome puffiness in her hands on the screen. She also had a small erythematous area on the right elbow LABORATORY DATA: Lab Results Component Value Date WBC 6.3 06/25/2019 HGB 11.8 (L) 06/25/2019 HCT 37.4 06/25/2019 MCV 89.5 06/25/2019 LABPLAT 312 06/25/2019 Lab Results Component Value Date AST 16 06/25/2019 ALT 10 06/25/2019 CREATININE 0.56 (L) 06/25/2019 Lab Results Component Value Date SEDRATE 25 (H) 05/24/2019 Lab Results Component Value Date CRP 13.8 (H) 05/24/2019 ASSESSMENT AND PLAN: SLE In conclusion this is a 29-year-old female with a diagnosis of lupus Again I think her diagnosis pretty clear she has a positive BARAK 1:1280, positive double-stranded DNA, low C3, C4, positive WHEEL TUNER. Her APS serologies are largely negative. I discussed with the patient that I do not think her diagnosis of lupus is in question. She does have some back pain but this is not limiting to her, there is family history of ankylosingspondylitis. If she has persistent back issues we may have to work this up with SI joint films. At present she has a flare and would like to increase her steroids I advised her to take 40 mg for 3 days, 30 mg for 3 days, 20 mg for 2 days and then go back to 10 mg in the morning. She can continue with 2.5 mg at bedtime. For future steroid tapers have advised her to reduce her nighttime dose to 2 mg for 2 weeks followed by 1 mg for 2 weeks and stop. I would advise her to continue the daytime prednisone 10 mg till such time that she has been able to get to a stable disease modifying agent In terms of her immunomodulatory therapy I would recommend that she continue with hydroxychloroquine 200 mg a day with annual eye examination. I would like to add Benlysta to her regimen. We discussed that subacute Benlysta may be a good option for her to avoid traveled to an infusion center duringthe COVID-19 crisis. Previously she has had negative hepatitis panel in September 2018 which is in Care everywhere. She hadan indeterminate QuantiFERON gold and I would like for her to do a T spot at this point. Once a TB test has been documented negative we will proceed with prescribing Benlysta. I think it would also be beneficial for her to be on of pain modulating medication. She previously tried gabapentin with some symptoms of fatigue and dizziness. We could consider Lyrica. Unfortunately at this point the patient does not have insurance. We will get her paperwork for Benlysta assistance. She anticipates she may have insurance at the end of the month in which case I would like to see if we can get her started on Lyrica I would attempt a slow prednisone taper about 3 months after she has been on the Benlysta DISPOSITION: The patient will return follow up in 3 month s Carolina Delarosa MD documented in this encounter Plan of Treatment Scheduled Orders Name Type Priority Associated Diagnoses Orde r Schedule [id number].TB Lab Routine Lupus (CMS/HCC) Expected: 07/02/2019, Expires: 07/01/2020 documented as of this encounter Visit Diagnoses Diagnosis Lupus- Primary Systemic lupus erythematosus documented in this encounter Additional Health Concerns Infection Onset Date Last Indicated Resolved Time COVID: Suspected 06/25/2019 07/07/2019 07/08/2019 2:20 AM CDT documented as of this encounter Care Teams Back Feeder [employer] Layup Line Relationship Specialty [place] [address] [address] [facility] [address] [place] [address] PCP - General 06/25/19 07/03/19 [place] [address] [address] [facility] [address] [place] [address] 11/16/18 documented as of this encounter
--- OUTSIDE RECORDS SUMMARY | 2024-02-24 20:15 | XMS_ITS | Encounter Summary ---
Author Organization [facility] Address [address] [place] [address] Phone Care Team Providers Care Special Forces Specialist Name Role Phone Huseyin Dangelo MD Unavailable [phone] Brian Mon MD Primary Care Provider + Encounter Details Date Type Department Care Team (Late st Contact Info) Description 07/18/2019 Orders Only [facility] Rheumatology [address] [facility] [address] Medicine 5th [place] [address] [place] [address] Abhilash Scott MD PhD [address] [place] [address] Social History Tobacco Use Types [...] Refills Last Filled Start Date End Date diclofenac sodium (VOLTAREN) 1 % gelIndications:Ost eoarthritis Apply 2 g topically 3 (three) times a day Apply to arthritis joints PRN 2 Tube 2 07/18/2019 0 documented in this encounter Progress Notes * Abhilash Scott MD PhD - 07/18/2019 7:39 PM CDT Patient called with concern she was in recurrent SLE flare with worsening joint pains with decreasein prednisone to 20 mg. Discussed that sometimes might have rebound arthritis/inflammatuion with drops in prednisone. Advised to return to 30 mg for a week and see if symptoms improve and taper slowly by 5 mg after that. Will also provide Voltaren gel to see if helps joints further. She has recent labs with mildly elevated CRP and UA with 1+ proteinuria which has had similar findings on past UAs. She has had T-spot that was negative and hep testing as well. She is wondering about Benlysta and when she is able to start that and will discuss with Dr. Delarosa about initiation of Benlysta and if it is approved. She does not have insurance and will need patient assistance most likely. Patient to call with worsening symptoms. documented in this encounter Plan of Treatment Not on file documented as of this encounter Visit Diagnoses Not on filedocumented in this encounter Additional Health Concerns Infection Onset Date Last Indicated Resolved Time Respiratory Infection (BLANCA), contact + droplet Comment:Automatically added due to negative COVID-19 result. 07/08/2019 07/08/2019 07/22/2019 3:0 5 AM CDT documented as of this encounter Care Teams Special Forces Specialist Relationship Specialty [place] [address] [address] [address] PCP - General 07/04/19 [place] [address] [address] [address] 11/16/18 documented as of this encounter
--- OUTSIDE RECORDS SUMMARY | 2024-02-24 20:15 | XMS_ITS | Encounter Summary ---
Author Organization [facility] Healthcare Address [address] [place] [address] Care Team Providers Care Perioperative Tech Name Role Phone Huseyin Dangelo MD Unavailable [phone] Brian Mon MD Primary Care Provider + Reason for Visit * Reason Comments Vomiting Diarrhea Encounter Details Date Type Department Care Team (Late st Contact Info) Description 07/20/2019 11:37 PM CDT - 07/21/2019 12:56 AM CDT Emergency [facility] Emergency Department [address] [place] [address] Michael Alvarado MD [address] [place] [address] [place] [address] Nausea and vomiting, intractability of vomiting not specified, unspecified vomiting type (Primary Dx) Discharge Disposition: Discharge to [...] Sign Reading Time Taken Comments Blood Pressure 117/95 07/21/2019 12:30 AM CDT Pulse 110 07/21/2019 12:45 AM CDT Temperature 36.4 ??C (97.6 ??F) 07/20/2019 11:43 PM C DT Respiratory Rate 18 07/20/2019 11:43 PM CDT Oxygen Saturation 100% 07/21/2019 12:45 AM CDT Inhaled Oxygen Concentration - - Weight 74.8 kg (165 lb) 07/20/2019 11:43 PM CDT Height 160 cm (5' 3 ) 07/20/2019 11:43 PM CDT Body Mass Index 29.23 07/20/2019 11:43 PM CDT documented in this encounter Discharge Diagnoses Diagnosis Nausea with vomiting, unspecified - NAUSEA WITH VOMITING, UNSPECIFIED Rheumatoid arthritis, unspecified (HCC) - RHEUMATOID [...] * Discharge Instructions* Michael Alvarado MD - 07/21/2019 12:47 AM CDT As discussed please return to the ED if you have uncontrolled nausea vomiting, high fevers, severe abdominal pain, any new symptoms or for any other concerns. Please try any medication as prescribed. Please avoid solid foods as much as possible drinking things like protein shakes to help with your calorie count. * Attachments The following attachments cannot be sent through Care Everywhere. * Vomiting and Diarrhea, Nonspecific (Adult) (Lao) documented in this encounter Medications at Time [...] (three) times a day as needed 1 ergocalciferol (VITAMIN D) 50,000 unit capsule [...] 06/21/2019 1 predniSONE (DELTASONE) 1 mg tablet Please take [...] Refills Last Filled Start Date End Date metoclopramide (REGLAN) 10 mg tablet Take 1 tablet (10 mg total) by mouth every 8 (eight) hours as needed (Nausea) 15 tablet 07/21/2019 08/14/2019 documented in this encounter Discharge Disposition Disposition Code Departure Means Destination Discharge to home or self care documented in this encounter ED Notes * Michael Alvarado MD - 07/20/2019 11:51 PM CDT HPI Chief Complaint Patient presents with ??? Vomiting ??? Diarrhea HPI 12:08 AM Carito Rausch is a 29 y.o. female former smoker with a h/o lupus, fibromyalgia, CKD, RA, and depression who presents to the ED with vomiting for 2 months. Associated symptoms include nausea, diarrhea, and myalgias, as well as abdominal pain relieved by vomiting and diarrhea. Patient also reports headache since this morning, as well as difficulty sleeping since she started taking Lexapro last week. She states she cannot tolerate solid food. She denies fever. Patient states she has anappointment with Dr. Denis for EGD and colonoscopy on 07/28. No other complaints at this time. Per chart review: Patient has presented to [facility], [facility], [facility], and [facility] EDs 12 times in the last month. 07/14 CT abdomen pelvis w/ contrast: suspected physiologic lesion at the right adnexa; subtle enhancing 11 mm nodule within the liver, indeterminate; otherwise normal. 07/16 US liver: no definite abnormality; liver parenchyma is normal in appearance with no focal liver lesions seen. Patient tested negative for COVID on 05/23, 06/01, 07/06, and 07/14. Patient History Past Medical History: Diagnosis Date [...] Systems Review of Systems Constitutional: Negative for fever. HENT: Negative for congestion. Eyes: Negative for redness. Respiratory: Negative for shortness of breath. Cardiovascular: Negative for chest pain. Gastrointestinal: Positive for abdominal pain, diarrhea, nausea and vomiting. Genitourinary: Negative for difficulty urinating. Musculoskeletal: Positive for myalgias. Negative for joint swelling. Skin: Negative for rash. Neurological: Positive for headaches. Psychiatric/Behavioral: Positive for sleep disturbance. Negative for agitation. Physical Exam ED Triage Vitals [07/20/19 2343] Temp Pulse Resp BP SpO2 36.4 ??C (97.6 ??F) 101 18 (!) 142/101 100 % Temp src Heart Rate Source [...] Tenderness: There is no abdominal tenderness. Musculoskeletal: Right lower leg: No edema. Left lower leg: No edema. Skin: General: Skin is warm and dry. Neurological: Mental Status: She is alert. Motor: Motor function is intact. Psychiatric: Behavior: Behavior is cooperative. Procedures MDM Labs Reviewed CBC WITH AUTO DIFFERENTIAL - Abnormal Result Value WBC 6.9 Hgb 11.0 (*) Hct 33.5 (*) Plt 251 MPV 9.4 RBC 3.75 (*) MCV 89.3 MCH 29.3 MCHC 32.8 RDW CV 14.8 RDW SD 47.7 NRBC abs 0.00 POCT HCG, URINE - Normal HCG, ur, POC Negative Lot Number [id number] QC Backgroud Clear Acceptable QC Control Line Acceptable DIFFERENTIAL AUTO Neutrophil abs 5.3 Imm gran abs 0.0 Lymphocyte abs 1.2 Monocyte abs 0.4 Eosinophil abs 0.0 Basophil abs 0.0 Neutrophil pct 76.3 Imm gran pct 0.3 Lymphocyte pct 16.7 Monocyte pct 6.1 Eosinophil pct 0.3 Basophil pct 0.3 COMPREHENSIVE METABOLIC PANEL MAGNESIUM LIPASE No orders to display BP 131/96 Pulse 99 Temp 36.4 ??C (97.6 ??F) (Oral) Resp 18 Ht 160 cm (5' 3 ) Wt 74.8 kg (165 lb) SpO2 100% BMI 29.23 kg/m?? MDM Number of Diagnoses or Management Options Diagnosis management comments: 29-year-old female with history of lupus, fibromyalgia, depression, the presents to the [facility] ED for nausea vomiting and inability to swallow solids. Differential diagnosis includes gastroparesis versus esophageal stricture versus IBD versus other acute pathology. Amount and/or Complexity of Data Reviewed Clinical lab tests: ordered and reviewed ED Course as of Jul 20 48 Time: 07/21 47 Comment: Patient states to nursing that she is feeling much better. Workup is incomplete but I feelcomfortable discharging the patient at this time. Advised keep appointment with Dr. Denis. Patient discharged in stable condition. All questions answered. We had an extensive conversation regarding return precautions and need for follow up prior to disposition. By: Michael Alvarado MD Nausea and vomiting, intractability of vomiting not specified, unspecified vomiting type This note is prepared by Soni Dietz, acting as a scribe for Michael Alvarado MD. I electronically signed this note at 12:49 AM on 07/21/2019. I, Michael Alvarado MD, have personally performed the services described in the documentation, reviewed the documentation, as recorded by the scribe in my presence, and it accurately and completely records my words and actions. Any errors in translation of speech to the EMR are related to software and not the clinician. Michael Alvarado MD 07/21/1946 * Maranda Singleton RN - 07/20/2019 11:48 PM CDT Patient arrives to ER for complaint of N/V/D. C/o lower quadrant abdominal pain. Symptoms occurringfor approximately 1-2 months. Patient c/o headache, body aches, and not being able to sleep. Patient states frontal headache that began this AM and has had no relief. Patient states that she has an EGD and colonoscopy scheduled with Dr. Denis on 07/28. Patient alert and oriented x4, vitals stable, skin PWD, sitting up on stretcher. Call light within reach. Maranda Singleton RN 07/20/19 2901 * Harriett Newman RN - 07/20/2019 11:35 PM CDT Every time she eats solid food she vomits and has had diarrhea x 1 month. Has an EGD and a colonoscopy with Dr. Denis next week. Has been able to hold down fluids a little documented in this encounter Plan of Treatment Not on file documented as of this encounter Procedures Procedure Name Priority Date/Time Associated Diagnosis Comments POCT HCG, URINE Routine 07/21/2019 12:25 AM CDT EGFR STAT 07/21/2019 12:21 AM CDT DIFFERENTIAL AUTO STAT 07/21/2019 12: 21 AM CDT CBC WITH AUTO DIFFERENTIAL STAT 07/21/2019 12:21 AM CDT MAGNESIUM Routine 07/21/2019 12:21 AM CDT LIPASE STAT 07/21/2019 12:21 AM CDT COMPREHENSIVE METABOLIC PANEL STAT 07/21/2019 12:21 AM CDT documented in this encounter Results * POCT hCG, urine (07/21/2019 12:25 AM CDT) HCG, ur, POC Negative Lot Number [id number] QC Backgroud Clear Acceptable QC Control Line Acceptable Urine 07/21/2019 12:2 5 AM CDT us Michael Alvarado MD POINT OF CARE TEST ORDERABLE S Final Result * eGFR (07/21/2019 12:21 AM CDT) eGFR 113 mL/min/1.7 3 m2 [facility] ([place]) Comment: Interpretive Data Reference Interval Normal ?>/= 90 mL/min/1.73m2 Mildly decreased* ? 60 - 89 mL/min/1.73m2 Mildly to moderately decreased ?45 - 59 mL/min/1.73m2 Moderately to severely decreased ??30 - 44 mL/min/1.73m2 Severely decreased ?15 - 29 mL/min/1.73m2 Kidney Failure ?< 15 ??mL/min/1.73m2 *Relative to young adult level If -Spanish multiply value by 1.16. Estimated glomerular filtration [...] was last reviewed 2015. Blood specimen (specimen) 07/21/2019 12:21 AM CDT 07/21/2019 12:36 AM CDT us Michael Alvarado MD LAB BLOOD ORDERABLES Final R esult [facility] ([place]) [address] [facility] [place] [address] * Differential, auto (07/21/2019 12:21 AM CDT) Neutrophil abs 5.3 1.7 - 6.5 K/cumm [facility] ([place]) Imm gran abs 0.0 0.0 - 0.1 K/cumm [facility] ([place]) Lymphocyte abs 1.2 0.8 - 3.3 K/cumm [facility] ([place]) Monocyte abs 0.4 0.2 - 0.8 K/cumm [facility] ([place]) Eosinophil abs 0.0 0.0 - 0.5 K/cumm [facility] ([place]) Basophil abs 0.0 0.0 - 0.1 K/cumm [facility] ([place]) Neutrophil pct 76.3 % [facility] ([place]) Comment: Interpretive [...] was last revised on 2017. Lymphocyte pct 16.7 % [facility] ([place]) Comment: Interpretive [...] revised on 2017. Eosinophil pct 0.3 % [facility] ([place]) Comment: Interpretive [...] last revised on 2017. Blood specimen (specimen) 07/21/2019 12:21 AM CDT 07/21/2019 12:36 AM CDT Michael Alvarado MD LAB BLOOD ORDERABLES Final R esult Performing Organization Address [facility] Co de Phone Number [facility] ([place]) [address] [facility] [place] [address] * Lipase (07/21/2019 12:21 AM CDT) Lipase 44 10 - 99 Units/L [facility] ([place]) Blood specimen (specimen) 07/21/2019 12:21 AM CDT 07/21/2019 12:36 AM CDT Michael Alvarado MD LAB BLOOD ORDERABLES Final R esult Performing Organization Address [facility] Co de Phone Number [facility] ([place]) [address] [facility] [place] [address] * Magnesium (07/21/2019 12:21 AM CDT) Magnesium 1.6 1.4 - 2.5 mg/dL [facility] ([place]) Blood specimen (specimen) 07/21/2019 12:21 AM CDT 07/21/2019 12:36 AM CDT Michael Alvarado MD LAB BLOOD ORDERABLES Final R esult Performing Organization Address [facility] Co de Phone Number [facility] ([place]) [address] [facility] [place] [address] * (ABNORMAL) Comprehensive metabolic panel (07/21/2019 12:21 AM CDT) Sodium 141 135 - 145 mmol/L [facility] ([place]) Potassium, pl 3.6 3.3 - 4.9 mmol/L [facility] ([place]) Chloride 103 97 - 110 mmol/L [facility] ([place]) CO2 25 22 - 32 mmol/L [facility] ([place]) Anion gap 13 2 - 15 mmol/L [facility] ([place]) BUN 13 8 - 25 mg/dL [facility] ([place]) Creatinine 0.73 0.60 - 1.10 mg/dL [facility] ([place]) Glucose 97 70 - 199 mg/dL [facility] ([place]) [...] interpretive data was last revised 2017. Calcium 9.2 8.5 - 10.3 mg/dL [facility] ([place]) Bilirubin, total 0.2 0.1 - 1.2 mg/dL [facility] ([place]) Protein, pl 6.4(L) 6.5 - 8.5 g/dL [facility] ([place]) Albumin 3.7 3.5 - 5.0 g/dL [facility] ([place]) Alk phos 43 40 - 130 Units/L [facility] ([place]) ALT 9 7 - 45 Units/L [facility] ([place]) AST 10 10 - 45 Units/L [facility] ([place]) Blood specimen (specimen) 07/21/2019 12:21 AM CDT 07/21/2019 12:36 AM CDT us Michael Alvarado MD LAB BLOOD ORDERABLES Final R esult [facility] ([place]) [address] [facility] Department of Laboratories [place], [place] [id number] * (ABNORMAL) CBC with auto differential (07/21/2019 12:21 AM CDT) WBC 6.9 3.8 - 9.9 K/cumm [facility] ([place]) Hgb 11.0(L) 11.9 - 15.5 g/dL [facility] ([place]) Hct 33.5(L) 35.6 - 45.5 % [facility] ([place]) Plt 251 150 - 400 K/cumm [facility] ([place]) MPV 9.4 9.1 - 12.3 fL [facility] ([place]) RBC 3.75(L) 3.90 - 5.20 M/cumm [facility] ([place]) MCV 89.3 81.3 - 96.4 fL [facility] ([place]) MCH 29.3 27.1 - 33.3 pg [facility] ([place]) MCHC 32.8 32.3 - 35.7 g/dL [facility] ([place]) RDW CV 14.8 11.1 - 14.9 % [facility] ([place]) RDW SD 47.7 35.7 - 48.1 fL [facility] NRBC abs 0.00 0.00 - 0.01 K/cumm [facility] Blood specimen (specimen) 07/21/2019 12:21 AM CDT 07/21/2019 12:36 AM CDT us Michael Alvarado MD LAB BLOOD ORDERABLES Final R esult [facility] ([place]) [address] [facility] Department of Laboratories [place], [place] [id number] documented in this encounter Visit Diagnoses Diagnosis Nausea and vomiting, intractability of vomiting not specified, unspecified vomiting type- Primary documented in this encounter Administered Medications Inactive Administered Medications - up to 3 most recent administrations Medication Order MAR Action Action Date Dose Rate Site droperidoL (INAPSINE) injection 1.25 mg 1.25 mg, intravenous, Administer over 5 Minutes, Once, On 07/20/19 at 2354, For 1 dose Given 07/21/2019 12:04 AM CDT 1.25 mg ketorolac (TORADOL) 15 mg/mL injection 15 mg 15 mg, intravenous, Once, On 07/20/19 at 2354, For 1 dose, For Adult IV push, administer over 15 seconds, Indications: PainIndications:Pain Given 07/21/2019 12:04 AM CDT 15 mg sodium chloride 0.9% bolus 1,000 mL 1,000 mL, intravenous, at 1,000 mL/hr, Administer over 1 Hours, Once, On 07/20/19 at 2354, For 1 dose New Bag 07/21/2019 12:04 AM CDT 1,000 mL 1000 mL/hr documented in this encounter Discontinued Medications Medication Sig Discontinue Reason Start Date End Da te aluminum-magnesium hydroxide-simethicone & diphenhydramine 1:1 (MAGIC MOUTHWASH) suspension Take 10 mL by mouth every 8 (eight) hours as needed (mouth ulcers) Swish and spit every 8 hours as needed for mouth pain. 06/22/2019 07/21/2019 dicyclomine (BENTYL) 20 mg tablet Take 1 tablet (20 mg total) by mouth 2 (two) times a day for 14 days 07/15/2019 07/21/2019 diphenoxylate-atropine (LOMOTIL) 2.5-0.025 mg per tabletIndications:diarrhea Take 1 tablet by mouth 4 (four) times a day as needed for diarrhea 05/28/2019 07/21/2019 hydrOXYzine (ATARAX) 10 mg tablet Take 1 tablet (10 mg total) by mouth 3 (three) times a day as needed for anxiety 07/10/2019 07/21/2019 ketorolac (TORADOL) 10 mg tablet Take 1 tablet (10 mg total) by mouth 4 (four) times a day as needed for pain Take with food. 07/04/2019 07/21/2019 ondansetron ODT (ZOFRAN-ODT) 4 mg disintegrating tablet Dissolve 1 tablet oral every 6 hours as needed for nausea or vomiting. 05/28/2019 07/21/2019 predniSONE (DELTASONE) 10 mg tablet Take by mouth 07/21/2019 predniSONE (DELTASONE) 5 mg tabletIndications:autoimmu ne disease Take 12.5 mg by mouth daily 07/21/2019 documented as of this encounter Active and Recently Administered Medications Times are shown in CDT. Scheduled Medication Order 07/19/2019 07/20/2019 07/21/2019 droperidoL (INAPSINE) injection 1.25 mg (COMPLETED) 1.25 mg, intravenous, Administer over 5 Minutes, Once, On 07/20/19 at 2354, For 1 dose 0004 (Given - Provid er: Maranda Singleton RN) ketorolac (TORADOL) 15 mg/mL injection 15 mg (COMPLETED) 15 mg, intravenous, Once, On 07/20/19 at 2354, For 1 dose, For Adult IV push, administer over 15 seconds, Indications: Pain 0004 (Given - Provid er: Maranda Singleton RN) sodium chloride 0.9% bolus 1,000 mL (COMPLETED) 1,000 mL, intravenous, at 1,000 mL/hr, Administer over 1 Hours, Once, On 07/20/19 at 2354, For 1 dose 0004 (New Bag - Prov ider: Maranda Singleton RN)[id number] (Stopped - Provider: Maranda Singleton RN) documented in this encounter Orders Nursing Count Last Ordered Date First Orde red Date CARDIO RESPIRATORY MONITORING 1 07/20/2019 CONTINUOUS PULSE OXIMETRY 1 07/20/2019 IV Count Last Ordered Date First Orde red Date INSERT PERIPHERAL IV 1 07/20/2019 documented in this encounter Additional Health Concerns Infection Onset Date Last Indicated Resolved Time Respiratory Infection (BLANCA), contact + droplet Comment:Automatically added due to negative COVID-19 result. 07/08/2019 07/08/2019 07/22/2019 3:0 5 AM CDT documented as of this encounter Care Teams Perioperative Tech Relationship Specialty [place] [id number] [address] [place] [id number] PCP - General 07/04/19 [place] [id number] [address] [place] [id number] 11/16/18 documented as of this encounter
--- OUTSIDE RECORDS SUMMARY | 2024-02-24 20:15 | XMS_ITS | Encounter Summary ---
Author Organization [facility] Address [address] [place] [address] Care Team Providers Care [facility] [employer] [facility] Manager Name Role Phone Huseyin Dangelo MD Unavailable [phone] Brian Mon MD Primary Care Provider + Reason for Visit * Reason Comments Leg Swelling Encounter Details Date Type Department Care Team (Late st Contact Info) Description 07/06/2019 6:40 AM CDT - 07/06/2019 7:36 AM CDT Emergency [facility] Department [address] [place] [address] Maryam Gomez MD [address] [place] [id number] Lupus (CMS/HCC) (Primary Dx); Anxiety; Dyspepsia Discharge Disposition: Discharge to home or self [...] Sign Reading Time Taken Comments Blood Pressure 117/82 07/06/2019 7:00 AM CDT Pulse 85 07/06/2019 6:51 AM CDT Temperature 36.6 ??C (97.8 ??F) 07/06/2019 6:51 AM CD T Respiratory Rate 18 07/06/2019 6:51 AM CDT Oxygen Saturation 98% 07/06/2019 6:51 AM CDT Inhaled Oxygen Concentration - - Weight - - Height - - Body Mass Index - - documented in this encounter Discharge Diagnoses Diagnosis Systemic lupus erythematosus, unspecified (HCC) - SYSTEMIC LUPUS ERYTHEMATOSUS, UNSPECIFIED Anxiety disorder, unspecified - ANXIETY DISORDER, UNSPECIFIED Epigastric pain - EPIGASTRIC PAIN Abdominal pain, epigastric Rheumatoid arthritis, unspecified (HCC) - RHEUMATOID ARTHRITIS, UNSPECIFIED Chronic kidney disease, unspecified - CHRONIC KIDNEY DISEASE, UNSPECIFIED Fibromyalgia - FIBROMYALGIA Unspecified myalgia and myositis Family history of ischemic heart disease and other diseases of the circulatory system - FAMILY HISTORY OF ISCHEMIC HEART DISEASE AND OTHER DISEASES OF THE CIRCULATORY SYSTEM documented in this encounter Discharge Instructions * Discharge Instructions* Maraym Gomez MD - 07/06/2019 7:24 AM CDT Continue medication as directed, but discontinue Toradol. Bentyl as directed. Prednisone 40mg dailyfor next 2 days,and contact [facility] for further evaluation. * Attachments The following attachments cannot be sent through Care Everywhere. * Lupus (Systemic Lupus Erythematosus) (Armenian) documented in this encounter Medications at Time of Discharge albuterol (PROAIR RESPICLICK) 90 mcg/actuation inhalerIndications:[place] Asthma Attack Inhale 2 puffs every 6 [...] times a day 30 tablet 1 07/06/2019 07/15/2019 documented in this encounter Discharge Disposition Disposition Code Departure Means Destination Discharge to home or self care documented in this encounter ED Notes * Christina Bal, RN - 07/06/2019 6:50 AM CDT Pt returning to the ED from two days ago with same complaint of swelling to both legs, pt has been to this ED multiple times with multiple complaints, pt in NAD. * Maryam Gomez MD - 07/06/2019 6:49 AM CDT HPI Chief Complaint Patient presents with ??? Leg Swelling HPI 7:01 AM Carito Rausch is a 29 y.o. female with a history of lupus, rheumatoid arthritis, chronickidney disease, anemia, and fibromyalgia presenting to the ED c/o arthralgias and lower extremity swelling that began 1 week ago. Patient reports pain to her bilateral feet, posterior knees, elbows, and hands (R>L). She also endorses swelling to her hands and lower extremities. Patient notes her pain exacerbates at work but states she is unable to take off work. She states she had a Tele-Med appointment on 07/02 with her hourly shift who would like to start her on Benlysta. She reports chronic Prednisone use without relief of her symptoms. She also notes that she is taking Hydroxychloroquinw, Omeprazole, and Xanax without relief. Additionally, patient states she has had frequent diarrhea and vomiting, noting she has seen streaks of blood in her vomit. She has not had any GI follow ups.No other complaints were expressed at this time. Patient History Patient Active [...] HENT: Negative for congestion and sore throat. Eyes: Negative for pain and visual disturbance. Respiratory: Negative for cough, shortness of breath and wheezing. Cardiovascular: Positive for leg swelling. Negative for chest pain and palpitations. Gastrointestinal: Positive for diarrhea and vomiting. Negative for abdominal pain and nausea. Genitourinary: Negative for difficulty urinating, dysuria and frequency. Musculoskeletal: Positive for arthralgias and joint swelling. Neurological: Negative for weakness and headaches. All other systems reviewed and are negative. Physical Exam ED Triage Vitals [07/06/19 0651] Temp Pulse Resp BP SpO2 36.6 ??C (97.8 ??F) 85 18 124/90 98 % Temp src Heart Rate Source Patient Position BP Location FiO2 (%) Temporal -- -- -- -- Physical Exam Vitals signs and nursing note reviewed. Constitutional: Appearance: She is well-developed. Comments: Patient is anxious but cooperative. She laughs at times and shows some humor. HENT: Head: Normocephalic. Nose: Nose normal. Eyes: Conjunctiva/sclera: Conjunctivae normal. Pupils: Pupils [...] abdominal tenderness. Musculoskeletal: Normal range of motion. Comments: Tenderness to palpation over the extensor surface of her elbows bilaterally. No erythema or obvious palpable mass. Tenderness to palpation over the tendons of the popliteal area bilaterally. Right hand with noted muscle atrophy and thinning of the skin, concerning for chronic atrophy. Skin: General: Skin is warm and dry. Neurological: Mental Status: She is alert and oriented to person, place, and time. MDM Vitals: 07/06/19 0651 07/06/19 0655 07/06/19 0700 BP: 124/90 124/90 117/82 Pulse: 85 Resp: 18 Temp: 36.6 ??C (97.8 ??F) TempSrc: Temporal SpO2: 98% Labs Reviewed - No data to display No orders to display MDM ED Course as of Jul 06 1239 Time: 07/05 725 Comment: Patient does exhibit signs of a lupus flare and anxiety/stress. Her GI symptoms may be improved with Bentyl. I asked her to increase her Prednisone dose to 40 mg daily for 2 days and to callthe lupus clinic for further guidance. I also asked her to discontinue the Toradol as she had complained about seeing blood in her emesis. Lab work done on 07/03 was 11.4 which is stable for her, so I do not think further blood work is warranted today. I do believe she would benefit with a GI consult and a counseling consultation for evaluation of possible depression. I asked the patient if she has been treated with narcotics like Hydrocodone or Oxycodone in the past and she states they don't work for her and make her sick. By: Jonny Ponce Final diagnoses: Lupus (CMS/HCC) Anxiety Dyspepsia 7:26 AM: Jonny Ponce, scribing for and in the presence of Maryam Gomez MD. I electronicallysigned this note at 7:26 AM on 07/06/2019. I, Maryam Gomez MD, have personally performed the services described in the documentation , reviewed the documentation, as recorded by the scribe in my presence, and it accurately and completely records my words and actions. Maryam Gomez MD 07/06/191239 documented in this encounter Plan of Treatment Not on file documented as of this encounter Visit Diagnoses Diagnosis Lupus- Primary Systemic lupus erythematosus Anxiety Anxiety state, unspecified Dyspepsia Dyspepsia and other specified disorders of function of stomach documented in this encounter Additional Health Concerns Infection Onset Date Last Indicated Resolved Time COVID: Suspected 06/25/2019 07/07/2019 07/08/2019 2:20 AM CDT documented as of this encounter Care Teams [employer] [employer] Manager Relationship Specialty [place] [address] [id number] [place] [address] PCP - General 07/04/[place] [id number] [address] [address] 11/16/18 documented as of this encounter
--- OUTSIDE RECORDS SUMMARY | 2024-02-24 20:15 | XMS_ITS | Encounter Summary ---
Author Organization [facility] Healthcare Address [address] [place] [address] Care Team Providers Care Sport Internship Name Role Phone Huseyin Dangelo MD Unavailable [phone] Brian Mon MD Primary Care Provider + Reason for Visit * Reason Comments Shortness of Breath Cough Encounter Details Date Type Department Care Team (Late st Contact Info) Description 07/10/2019 11:15 AM CDT - 07/10/2019 3:54 PM CDT Emergency [facility] Emergency Department [address] [place] [id number] Acute bronchitis, unspecified organism (Primary Dx) Discharge Disposition: Discharge to home [...] Sign Reading Time Taken Comments Blood Pressure 119/84 07/10/2019 3:00 PM CDT Pulse 70 07/10/2019 3:00 PM CDT Temperature 36.8 ??C (98.2 ??F) 07/10/2019 11:05 AM C DT Respiratory Rate 19 07/10/2019 11:05 AM CDT Oxygen Saturation 90% 07/10/2019 3:00 PM CDT Inhaled Oxygen Concentration - - Weight 70.3 kg (155 lb) 07/10/2019 11:11 AM CDT Height 157.5 cm (5' 2 ) 07/10/2019 11:11 AM CDT Body Mass Index 28.35 07/10/2019 11:11 AM CDT documented in this encounter Discharge Diagnoses Diagnosis Acute bronchitis, unspecified - ACUTE BRONCHITIS, UNSPECIFIED Systemic lupus erythematosus, unspecified (HCC) - SYSTEMIC LUPUS ERYTHEMATOSUS, UNSPECIFIED Rheumatoid arthritis, unspecified (HCC) - RHEUMATOID ARTHRITIS, UNSPECIFIED Fibromyalgia - FIBROMYALGIA Unspecified myalgia and myositis Chronic kidney disease, unspecified - CHRONIC KIDNEY DISEASE, UNSPECIFIED documented in this encounter Discharge Instructions * Discharge Instructions* Ann Martinez PA - 07/10/2019 3:21 PM CDT THERE WERE NO CONCERNING ABNORMALITIES ON YOUR LABS OR IMAGING TODAY. PLEASE FOLLOW UP WITH YOUR VISUAL ARTIST. CALL SOON POSSIBLE TO SCHEDULE AN APPOINTMENT. DECREASE USE OF YOUR ALBUTEROL INHALER TO SEE IF THIS IMPROVES YOUR ANXIETY. RETURN TO THE EMERGENCY DEPARTMENT IF YOU HAVE INCREASED DIFFICULTY BREATHING, CHEST PAIN, FEEL FAINT OR PASS OUT, HAVE HIGH FEVER, OR OTHER NEW OR CONCERNING SYMPTOMS. * Attachments The following attachments cannot be sent through Care Everywhere. * Acute Bronchitis (AfterCare(R) Instructions(ER/ED)) (Khmer) documented in this encounter Medications at Time of Discharge albuterol (PROAIR RESPICLICK) 90 mcg/actuation inhalerIndications:Ac chitina Asthma Attack Inhale 2 puffs every 6 [...] Filled Start Date End Date hydrOXYzine (ATARAX) 10 mg tablet Take 1 tablet (10 mg total) by mouth 3 (three) times a day as needed for anxiety 30 tablet 07/10/2019 0 documented in this encounter Discharge Disposition Disposition Code Departure Means Destination Discharge to home or self care documented in this encounter ED Notes * Ann Martinez PA - 07/10/2019 12:13 PM CDT HPI Chief Complaint Patient presents with ??? Shortness of Breath ??? Cough The patient is a 29-year-old female with history of lupus, RA, fibromyalgia, and CKD who presents with cough and shortness of breath increased over the last 2 days. Today is the patient's 8th ED visit in the last month. She states that she has been tested for COVID -19 on [address] a [address] PE protocol 06/22/19 after elevated D-dimer. Repeat D-dimer on 07/04/2019 was still elevated but decreased. She has also followed up with rheumatology through [facility] and [facility] with various changes in her lupus medications and steroid dosing. 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 She states that she feels like her shortness of breath is in her throat and upper chest. This started 2 days ago, which was 2 days after receiving the Decadron. She has been using her albuterol inhaler every 4 hours without significant improvement. She is also taking Delsym for her cough. She is currently on 30 mg of prednisone daily, previously on 15 mg daily for 2 years. She denies any known contact with COVID positive individuals, however states that ???a few of my coworkers tested positive for pneumonia.?? She denies fevers. Patient History Patient Active Problem List Diagnosis [...] pain and visual disturbance. Respiratory: Positive for cough and shortness of breath. Negative for wheezing and stridor. Cardiovascular: Negative for chest pain, palpitations and leg swelling. Gastrointestinal: Positive for nausea. Negative for abdominal pain and vomiting. Genitourinary: Negative for dysuria and hematuria. Musculoskeletal: Negative for arthralgias and back pain. Skin: Negative for color change and rash. Neurological: Negative for seizures, syncope and headaches. Psychiatric/Behavioral: The patient is nervous/anxious. All other systems reviewed and are negative. Physical Exam ED Triage Vitals [07/10/19 1105] Temp Pulse Resp BP SpO2 36.8 ??C (98.2 ??F) 80 19 143/98 99 % Temp src Heart Rate Source Patient Position BP Location FiO2 (%) Oral Monitor Sitting Left arm -- Physical Exam Vitals signs and nursing note reviewed. Constitutional: General: She is not in acute distress. Appearance: She is well-developed. HENT: Head: Normocephalic and atraumatic. Mouth/Throat: Lips: [place]. Mouth: Mucous membranes are moist. No angioedema. Pharynx: Oropharynx is clear. Uvula midline. No pharyngeal swelling, oropharyngeal exudate, posterior oropharyngeal erythema or uvula swelling. Eyes: Extraocular Movements: Extraocular movements intact. Conjunctiva/sclera: Conjunctivae normal. Neck: Musculoskeletal: Normal range of motion and neck supple. Cardiovascular: Rate and Rhythm: Normal rate and regular rhythm. Pulses: Dorsalis pedis pulses are 2+ on the right side and 2+ on the left side. Heart sounds: Normal heart sounds. No murmur. No friction rub. No gallop. Pulmonary: Effort: Pulmonary effort is normal. No respiratory distress. Breath sounds: Normal breath sounds. No wheezing or rales. Abdominal: General: Bowel sounds are normal. Palpations: Abdomen is soft. Tenderness: There is no abdominal tenderness. There is no guarding. Musculoskeletal: Normal range of motion. Right lower leg: No edema. Left lower leg: No edema. Skin: General: Skin is warm and dry. Findings: No rash. Neurological: Mental Status: She is alert and oriented to person, place, and time. Psychiatric: Mood and Affect: Affect normal. Mood is anxious. Behavior: Behavior normal. MDM Medical Decision Making Differential Diagnosis or Management Options: Differential includes medication reaction from steroids, anxiety, bronchitis, less likely pneumonia or COVID, as she has been tested 4 times in the last 2 months with similar symptoms. Plan for EKG, CXR, labs, reassurance. Reviewed social history and family history w/patient. Reviewed previous records: Care everywhere Summarize previous history: EPIC chart review of previous visits. See HPI. Patient has had multipleED visits recently for related complaints with essentially negative workups. ED Course as of Jul 10 1523 Time: 07/09 1505 Comment: No concerning abnormalities on labs or imaging. Discussed ED results with patient and wentover discharge diagnosis, medications, follow-up plan and return precautions. Shared decision making used. Pt verbalizes understanding of all and agrees with POC. By: TSERING Cortes Time: 07/09 1523 Comment: Patient reports that she has been using her albuterol inhaler every 4 hours. She has just thought that her anxiety and jittery-feeling is associated with her use of the inhaler. Recommend decreased use, as some of her symptoms may be exacerbated by the side effects of the albuterol. By: TSERING Cortes Final diagnoses: Acute bronchitis, unspecified organism TSERING Cortes 07/10/19 1524 * Ian Hwang RN - 07/10/2019 11:06 AM CDT 29 y/o CF with PMHx of lupus, fibromyalgia, depression, and CKD presents to the ED with SOB, cough,and dizziness for the past few days. Pt seen at [facility] ED over the past few days forhand swelling and nerve pain. Pt tested for COVID on 07/05 and was negative. VSS. documented in this encounter Miscellaneous Notes * ED Procedure Note - Jorge Ramirez MD - 07/10/2019 12:47 PM CDTAssociated Order(s): ECG 12 lead Procedure ECG 12 lead Date/Time: 07/10/2019 11:56 AM Performed by: Jorge Ramirez MD Authorized by: TSERING Cortes Rate: ECG rate: 89 ECG rate assessment: normal Rhythm: Rhythm: sinus rhythm Ectopy: Ectopy: none QRS: QRS axis: Normal QRS intervals: Normal Conduction: Conduction: normal ST segments: ST segments: Normal T waves: T waves: normal Previous ECG: Previous ECG: Compared to current Date of previous EC06/02/2019 Similarity: No change Interpretation: Interpretation: normal Jorge Ramirez MD 07/10/19 1248 documented in this encounter Plan of Treatment Not on file documented as of this encounter Procedures Procedure Name Priority Date/Time Associated Diagnosis Comments XR CHEST 1 VIEW ED 07/10/2019 1:32 PM CDT ECG 12-LEAD STAT 07/10/2019 12:47 PM CDT DIFFERENTIAL AUTO STAT 07/10/2019 12: 22 PM CDT CBC WITH AUTO DIFFERENTIAL STAT 07/10/2019 12:22 PM CDT TROPONIN I STAT 07/10/2019 12:22 PM CDT BASIC METABOLIC PANEL STAT 07/10/2019 12:22 PM CDT POCT HCG, URINE Routine 07/10/2019 11:52 AM CDT documented in this encounter Results * XR Chest 1 Vw Portable (07/10/2019 1:32 PM CDT) Anatomical Region Laterality Modality Body, Chest N/A Computed Radiogr aphy 07/10/2019 2:12 PM CDT Impressions 07/10/2019 2:17 PM CDT The current study is compared with the prior radiograph dated ??06/22/2019. No focal consolidation. No pleural effusion or pneumothorax. Heart size and mediastinal contours are normal. Dictated by: Marta Harris M.D. The radiology attending physician has personally reviewed this study, and had reviewed and/or edited this written report and agrees with it. Electronically signed by: Jorge Zamudio M.D. Narrative 07/10/2019 2:17 PM CDT EXAMINATION: 1 view chest radiograph Procedure Note Jorge Zamudio MD - 07/10/2019 EXAMINATION: 1 view chest radiograph IMPRESSION: The current study is compared with the prior radiograph dated 06/22/2019. No focal consolidation. No pleural effusion or pneumothorax. Heart size and mediastinal contours are normal. Dictated by: Marta Harris M.D. The radiology attending physician has personally reviewed this study, and had reviewed and/or edited this written report and agrees with it. Electronically signed by: Jorge Zamudio M.D. us Sylvia CAGLE IMG XR PROCEDURES Fin al Result * ECG 12-LEAD (07/10/2019 12:47 PM CDT) Narrative [facility] - 07/10/2019 12:47 PM CDT Jorge Ramirez MD ? 07/10/2019 12:48 PM ECG 12 lead Date/Time: 07/10/2019 11:56 AM Performed by: Jorge Ramirez MD Authorized by: TSERING Cortes Rate: ??ECG rate: ??89 ??ECG rate assessment: normal ?? Rhythm: ??Rhythm: sinus rhythm ?? Ectopy: ??Ectopy: none ?? QRS: ??QRS axis: ??Normal ??QRS intervals: ??Normal Conduction: ??Conduction: normal ?? ST segments: ??ST segments: ??Normal T waves: ??T waves: normal ?? Previous ECG: ??Previous ECG: ??Compared to current ??Date of previous ECG: ??06/02/2019 ??Similarity: ??No change Interpretation: ??Interpretation: normal ?? Procedure Note Jorge Rmairez MD - 07/10/2019 12:47 PM CDT Procedure ECG 12 lead Date/Time: 07/10/2019 11:56 AM Performed by: Jorge Ramirez MD Authorized by: TSERING Cortes Rate: ECG rate: 89 ECG rate assessment: normal Rhythm: Rhythm: sinus rhythm Ectopy: Ectopy: none QRS: QRS axis: Normal QRS intervals: Normal Conduction: Conduction: normal ST segments: ST segments: Normal T waves: T waves: normal Previous ECG: Previous ECG: Compared to current Date of previous EC06/02/2019 Similarity: No change Interpretation: Interpretation: normal Jorge Ramirez MD 07/10/19 1248 us Ann CAGLE ECG ORDERABLES Final R esult [facility] * (ABNORMAL) Differential, auto (07/10/2019 12:22 PM CDT) Neutrophil abs 7.9(H) 1.7 - 6.5 K/cumm [facility] Imm gran abs 0.0 0.0 - 0.1 K/cumm [facility] Lymphocyte abs 0.6(L) 0.8 - 3.3 K/cumm [facility] Monocyte abs 0.2 0.2 - 0.8 K/cumm [facility] Eosinophil abs 0.0 0.0 - 0.5 K/cumm [facility] Basophil abs 0.0 0.0 - 0.1 K/cumm [facility] Neutrophil pct 90.0 % [facility] Comment: Interpretive Data Percent cell count reference ranges are not reported, since discordance with absolute values may lead to misinterpretation of CBC data. Current Interpretive Data was last revised on 2017. Imm gran pct 0.5 % [facility] Comment: Interpretive Data Percent cell count reference ranges are not reported, since discordance with absolute values may lead to misinterpretation of CBC data. Current Interpretive Data was last revised on 2017. Lymphocyte pct 7.2 % [facility] Comment: Interpretive Data Percent cell count reference ranges are not reported, since discordance with absolute values may lead to misinterpretation of CBC data. Current Interpretive Data was last revised on 2017. Monocyte pct 2.2 % [facility] Comment: Interpretive Data Percent cell count reference ranges are not reported, since discordance with absolute values may lead to misinterpretation of CBC data. Current Interpretive Data was last revised on 2017. Eosinophil pct 0.0 % [facility] Comment: Interpretive Data Percent cell count reference ranges are not reported, since discordance with absolute values may lead to misinterpretation of CBC data. Current Interpretive Data was last revised on 2017. Basophil pct 0.1 % [facility] Comment: Interpretive Data Percent cell count reference ranges are not reported, since discordance with absolute values may lead to misinterpretation of CBC data. Current Interpretive Data was last revised on 2017. Blood specimen (specimen) 07/10/2019 12:22 PM CDT 07/10/2019 1:20 PM CDT us Ann CAGLE LAB BLOOD ORDERABLES Fi nal Result [facility] Department [place] [address] * Basic metabolic panel (07/10/2019 12:22 PM CDT) Pathologist [facility] Sodium 138 135 - 145 mmol/L [facility] Potassium, pl 4.1 3.3 - 4.9 mmol/L [facility] Chloride 102 97 - 110 mmol/L [facility] CO2 25 22 - 32 mmol/L [facility] Anion gap 11 2 - 15 mmol/L [facility] BUN 12 8 - 25 mg/dL [facility] Creatinine 0.60 0.60 - 1.10 mg/dL [facility] Glucose 94 70 - 199 mg/dL [facility] Comment: Interpretive Data Fasting glucose >/= 126 [...] interpretive data was last revised 2017. Calcium 9.7 8.5 - 10.3 mg/dL [facility] Blood specimen (specimen) 07/10/2019 12:22 PM CDT 07/10/2019 1:20 PM CDT Narrative [facility] - 07/10/2019 1:44 PM CDT THE COLLECTION LOCATION IS [place] [address] us Ann CAGLE LAB BLOOD ORDERABLES Fi nal Result [facility] Department [place] [address] * (ABNORMAL) CBC with auto differential (07/10/2019 12:22 PM CDT) Pathologist [facility] WBC 8.7 3.8 - 9.9 K/cumm [facility] Hgb 11.9 11.9 - 15.5 g/dL [facility] Hct 37.8 35.6 - 45.5 % [facility] Plt 334 150 - 400 K/cumm [facility] MPV 9.7 9.1 - 12.3 fL [facility] RBC 4.16 3.90 - 5.20 M/cumm [facility] MCV 90.9 81.3 - 96.4 fL [facility] MCH 28.6 27.1 - 33.3 pg [facility] MCHC 31.5(L) 32.3 - 35.7 g/dL [facility] RDW CV 15.4(H) 11.1 - 14.9 % [facility] RDW SD 51.2(H) 35.7 - 48.1 fL [facility] NRBC abs 0.00 0.00 - 0.01 K/cumm [facility] Blood specimen (specimen) 07/10/2019 12:22 PM CDT 07/10/2019 1:20 PM CDT Narrative [facility] - 07/10/2019 1:27 PM CDT THE COLLECTION LOCATION IS [facility] [id number] Ann CAGLE LAB BLOOD ORDERABLES [facility] Result [facility] Department [place] [address] * Troponin I (07/10/2019 12:22 PM CDT) Troponin I <0.03 0.00 - 0.03 ng/mL [facility] Comment: Interpretive Data: Normal plasma Troponin I [...] for Troponin assay. References: 1. Clin Chem 2013;[id number] 2. Journal of the [place] [employer] 2012;60:1581-98 Current Interpretive Data Last Revised Date: 2017. Blood specimen (specimen) 07/10/2019 12:22 PM CDT 07/10/2019 1:20 PM CDT Narrative [facility] - 07/10/2019 2:06 PM CDT THE BJ COLLECTION LOCATION IS [facility] ED3-08 Ann CAGLE LAB BLOOD ORDERABLES Fi nal Result [facility] Department [place] [address] * POCT hCG, urine (07/10/2019 11:52 AM CDT) HCG, ur, POC Negative Lot Number [id number] QC Backgroud Clear Acceptable QC Control Line Acceptable Urine 07/10/2019 11:5 2 AM CDT Ann CAGLE POINT OF CARE TEST ORDJose EDITHAURORA Final Result documented in this encounter Visit Diagnoses Diagnosis Acute bronchitis, unspecified organism- Primary documented in this encounter Administered Medications Inactive Administered Medications - up to 3 most recent administrations Medication Order MAR Action Action Date Dose Rate Site hydrOXYzine (ATARAX) tablet 25 mg 25 mg, oral, Once, On Rachel 07/10/19 at 1242, For 1 dose Given 07/10/2019 12:48 PM CDT 25 mg documented in this encounter Active and Recently Administered Medications Times are shown in CDT. Scheduled Medication Order 07/08/2019 07/09/2019 07/10/2019 hydrOXYzine (ATARAX) tablet 25 mg (COMPLETED) 25 mg, oral, Once, On Rachel 07/10/19 at 1242, For 1 dose 1248 (Given - Provid er: Dayna Juarez RN) documented in this encounter Orders Medications Ordered That Omer ht Not Have Been Administered Count Last Ordered Date First Ordered Date hydrOXYzine (ATARAX) tablet 25 mg 1 020 documented in this encounter Additional Health Concerns Infection Onset Date Last Indicated Resolved Time Respiratory Infection (BLANCA), contact + droplet Comment:Automatically added due to negative COVID-19 result. 07/08/2019 07/08/2019 07/22/2019 3:0 5 AM CDT documented as of this encounter Care Teams Sport Internship Relationship Specialty [place] [id number] [place] [address] PCP - General 07/04/19 [place] [address] [address] [facility] [place] [address] 11/16/18 documented as of this encounter
--- OUTSIDE RECORDS SUMMARY | 2024-02-24 20:15 | XMS_ITS | Encounter Summary ---
Author Organization [facility] Healthcare Address [address] [place] [address] Care Team Providers Care Stone Driller Helper Name Role Phone Huseyin Dangelo MD Primary Care Provider [phone] Huseyin Dangelo MD Unavailable [phone] Reason for Visit * Reason Comments Multiple Medical Complaints Encounter Details Date Type Department Care Team (Late st Contact Info) Description 06/19/2019 2:19 PM CDT - 06/19/2019 3:00 PM CDT Emergency [facility] Emergency Department [address] [place] [address] Discharge Disposition: Left without being seen Social [...] Reading Time Taken Comments Blood Pressure 118/76 06/19/2019 2:40 PM CDT Pulse 104 06/19/2019 2:40 PM CDT Temperature 36.7 ??C (98 ??F) 06/19/2019 2:38 PM CDT Respiratory Rate 16 06/19/2019 2:38 PM CDT Oxygen Saturation 99% 06/19/2019 2:40 PM CDT Inhaled Oxygen Concentration - - Weight 70.3 kg (155 lb) 06/19/2019 2:38 PM CDT Height 160 cm (5' 3 ) 06/19/2019 2:38 PM CDT Body Mass Index 27.46 06/19/2019 2:38 PM CDT documented in this encounter Discharge Diagnoses Diagnosis Procedure and treatment not carried out due to patient leaving prior to being seen by health care provider - PROCEDURE AND TREATMENT NOT CARRIED OUT DUE TO PATIENT LEAVING PRIOR TO BEING SEEN BY HEALTH CARE AL Other group home (current) drug therapy - OTHER PRISON (CURRENT) DRUG THERAPY documented in this encounter Medications at Time of Discharge albuterol (PROAIR RESPICLICK) 90 mcg/actuation inhalerIndications:A cute Asthma Attack Inhale 2 puffs every 6 (six) hours as needed for wheezing 0 ALPRAZolam (XANAX) 0.25 mg tablet Take 0.25 mg by mouth 3 (three) times a day as needed 1 diphenoxylate-atropi ne (LOMOTIL) 2.5-0.025 mg per tabletIndications:di arrhea Take 1 tablet by mouth 4 (four) times a day as needed for diarrhea 20 tablet 05/28/2019 0 folic acid (FOLVITE) 1 mg tabletIndications:Fo late Deficiency Take 1 mg by mouth daily 0 hydroxychloroquine (PLAQUENIL) 200 mg tablet Take 100 mg by mouth nightly 0 ondansetron ODT (ZOFRAN-ODT) 4 mg disintegrating tablet Dissolve 1 tablet oral every 6 hours as needed for nausea or vomiting. 6 tablet 05/28/2019 0 predniSONE (DELTASONE) 5 mg tabletIndications:au toimmune disease Take 12.5 mg by mouth daily 0 documented as of this encounter Discharge Disposition Disposition Code Departure Means Destination Left without being seen documented in this encounter ED Notes * Amy Higgins RN - 06/19/2019 2:36 PM CDT Patient states her lupus medications were switching recently and patient states she is aching all over and feels like she is going to pass out at night. Patient also states she has worse headaches and her scalp is very sensitive to touch. Patient also c/o sore throat and bilateral ear pain. documented in this encounter Plan of Treatment Not on file documented as of this encounter Procedures Procedure Name Priority Date/Time Associated Diagnosis Comments STREPTOCOCCUS GROUP A PCR STAT 06/19/2019 2:48 PM CDT documented in this encounter Results * Streptococcus Group A PCR (06/19/2019 2:48 PM CDT) Strep A DNA Not Detected Not Detected [facility] Comment: This test is performed using the Flux Xpert Group A Streptococcal Assay. This is [...] been verified by the performing laboratory. Throat 06/19/2019 2:48 PM CDT 06/19/2019 2:50 PM CDT us Maraym Gomez MD LAB MICROBIOLOGY - GENERAL ORDERABLES Final Result [facility] Department [place] [address] documented in this encounter Visit Diagnoses Not on filedocumented in this encounter Care Teams Stone Driller Helper Relationship Specialty Start [place] [address] [address] [facility] [address] [place] [address] PCP - General 11/16/18 06/24/19 [place] [id number] [address] 11/16/18 documented as of this encounter
--- OUTSIDE RECORDS SUMMARY | 2024-02-24 20:15 | XMS_ITS | Encounter Summary ---
Author Organization [facility] Healthcare Address [address] [place] [address] Care Team Providers Care Manager [place] Name Role Phone Huseyin Dangelo MD Primary Care Provider [phone] Huseyin Dangelo MD Unavailable [phone] Reason for Visit * Reason Comments Shortness of Breath Encounter Details Date Type Department Care Team (Late st Contact Info) Description 06/22/2019 3:18 AM CDT - 06/22/2019 6:59 AM CDT Emergency [facility] Emergency Department [address] [place] [address] Kim Gomez MD [address] [place] [id number] Systemic lupus erythematosus, unspecified SLE type, unspecified organ involvement status (CMS/HCC) (Primary Dx); Shortness of breath Discharge Disposition: Discharge to home or self [...] Sign Reading Time Taken Comments Blood Pressure 125/79 06/22/2019 6:00 AM CDT Pulse 99 06/22/2019 6:00 AM CDT Temperature 36.4 ??C (97.5 ??F) 06/22/2019 3:22 AM CD T Respiratory Rate 21 06/22/2019 6:00 AM CDT Oxygen Saturation 100% 06/22/2019 6:00 AM CDT Inhaled Oxygen Concentration - - Weight 68 kg (150 lb) 06/22/2019 3:22 AM CDT Height 157.5 cm (5' 2 ) 06/22/2019 3:22 AM CDT Body Mass Index 27.44 06/22/2019 3:22 AM CDT documented in this encounter Discharge Diagnoses Diagnosis Systemic lupus erythematosus, unspecified (HCC) - SYSTEMIC LUPUS ERYTHEMATOSUS, UNSPECIFIED Shortness of breath - SHORTNESS OF BREATH Chronic kidney disease, unspecified - CHRONIC KIDNEY DISEASE, UNSPECIFIED Anemia in chronic kidney disease (CODE) - ANEMIA IN CHRONIC KIDNEY DISEASE (MANIFESTATION) Major depressive disorder, single episode, unspecified - MAJOR DEPRESSIVE DISORDER, SINGLE EPISODE, UNSPECIFIED Rheumatoid arthritis, unspecified (HCC) - RHEUMATOID ARTHRITIS, UNSPECIFIED Fibromyalgia - FIBROMYALGIA Unspecified myalgia and myositis correction (current) use of inhaled steroids - GROUP HOME (CURRENT) USE OF INHALED STEROIDS Personal history of immunosupression therapy - PERSONAL HISTORY OF IMMUNOSUPRESSION THERAPY documented in this encounter Discharge Instructions * Discharge Instructions* Kim Gomez MD - 06/22/2019 6:40 AM CDT Continue current medications as directed, but discontinue azathiaprine. Magic mouthwash as directed. See your PMD this week. Follow up with rheumatology at [facility]. As already scheduled. * Attachments The following attachments cannot be sent through Care Everywhere. * Lupus (Systemic Lupus Erythematosus) ([place]) documented in this encounter Medications at Time of Discharge valACYclovir (VALTREX) 1 gram tablet Take 1 tablet (1,000 mg total) by mouth 2 (two) times a day for 7 days 14 tablet 06/22/2019 0 albuterol (PROAIR RESPICLICK) 90 mcg/actuation inhalerIndications:Ac kar[place] Asthma Attack Inhale 2 puffs every 6 [...] Refills Last Filled Start Date End Date valACYclovir (VALTREX) 1 gram tablet Take 1 tablet (1,000 mg total) by mouth 2 (two) times a day for 7 days 14 tablet 06/22/2019 0 aluminum-magnesium hydroxide-simethicone & diphenhydramine 1:1 (MAGIC MOUTHWASH) suspension Take 10 mL by mouth every 8 (eight) hours as needed (mouth ulcers) Swish and spit every 8 hours as needed for mouth pain. 240 mL 06/22/2019 0 documented in this encounter Discharge Disposition Disposition Code Departure Means Destination Discharge to home or self care documented in this encounter ED Notes * Kim Gomez MD - 06/22/2019 3:28 AM CDTAssociated Order(s): ECG 12 lead Chief Complaint Patient presents with ??? Shortness of Breath 3:28 AM 06/22/2019 - 29 y/o F with a h/o lupus, chronic kidney disease, anemia, and fibromyalgia presents to the ED with complaints of mouth sores and chest pain with cough, SOB, and sore throat onsetapproximately 2 days [employer]. She notes that she used her inhaler at home with no improvement. She alsoc/o intermittent diarrhea and right sided scalp pain and swelling that worsens with touch. Per pt, she was admitted for 2 days about one month ago after having 18 days of diarrhea. She notes that at that time she was tested for COVID-19 twice, both of which were negative. Pt confirms that she currently takes steroid and 3 immunosuppressants. Per chart review, patient was seen on 06/18/2019 at [facility] for generalized myalgias for 1 week after starting azathioprine for lupus. She also had a CBC done with no elevated white count. Her urinalysisat that visit showed a few bacteria, 30mg/dL protein, and 10 pierre/uL of blood. Nursing Note reviewed Past Medical History: Diagnosis [...] hydroxide-simethicone & diphenhydramine 1:1 (MAGIC MOUTHWASH) suspension diphenoxylate-atropine (LOMOTIL) 2.5-0.025 mg per tablet folic acid (FOLVITE) 1 mg tablet hydroxychloroquine (PLAQUENIL) 200 mg tablet ondansetron ODT (ZOFRAN-ODT) 4 mg disintegrating tablet predniSONE (DELTASONE) 5 mg tablet Allergies Allergen Reactions ??? Methylprednisolone Anaphylaxis and Syncope Syncope Review of Systems Constitutional: Negative for chills and fever. HENT: Positive for mouth sores and sore throat. Negative for congestion. Positive for right sided scalp pain and swelling Eyes: Negative for pain and visual disturbance. Respiratory: Positive for cough and shortness of breath. Negative for wheezing. Cardiovascular: Positive for chest pain. Negative for palpitations and leg swelling. Gastrointestinal: Positive for diarrhea. Negative for abdominal pain, nausea and vomiting. Genitourinary: Negative for difficulty urinating, dysuria and frequency. Neurological: Negative for weakness and headaches. All other systems reviewed and are negative. Physical Exam Vitals signs and nursing note reviewed. Constitutional: General: She is not in acute distress. Appearance: She is well-developed. HENT: Head: Normocephalic. Nose: Nose normal. Mouth/Throat: Mouth: Mucous membranes are moist. Comments: Mucus membranes show shallow ulceration in the buccal mucosa bilaterally Eyes: Conjunctiva/sclera: Conjunctivae normal. Pupils: Pupils are equal, round, and reactive to light. Neck: Musculoskeletal: Normal range of motion and neck supple. Cardiovascular: Rate and Rhythm: Normal rate and regular rhythm. Heart sounds: Normal heart sounds. No murmur. No gallop. Pulmonary: Effort: Pulmonary effort is normal. Breath sounds: Normal breath sounds. Abdominal: General: Bowel sounds are normal. Palpations: Abdomen is soft. Tenderness: There is abdominal tenderness (bilateral lower abdomen). There is no guarding or rebound. Musculoskeletal: Normal range of motion. Right lower leg: No edema. Left lower leg: No edema. Skin: General: Skin is warm and dry. Neurological: Mental Status: She is alert and oriented to person, place, and time. Vitals: 06/22/19 0322 06/22/19 0400 06/22/19 0600 BP: (!) 139/105 122/83 125/79 BP Location: Left arm Patient Position: Sitting Pulse: 89 95 99 Resp: Temp: 36.4 ??C (97.5 ??F) TempSrc: Temporal SpO2: 100% 99% 100% Weight: 68 kg (150 lb) Height: 157.5 cm (5' 2 ) Labs Reviewed URINALYSIS AND REFLEX TO MICROSCOPIC AND CULTURE - Abnormal Result Value Color, ur Yellow Clarity, ur Clear Specific gravity, ur 1.019 pH, urine 5.5 Protein, ur ql 1+ [...] tendency for uric acid stone formation. Source: [email or web address].Last revised 03-08-2017 CBC WITH AUTO DIFFERENTIAL - Abnormal WBC 6.2 Hgb 11.3 (*) Hct 35.8 Plt 285 MPV 9.3 RBC 4.00 MCV 89.5 MCH 28.3 MCHC 31.6 (*) RDW CV 15.0 (*) RDW SD 48.7 (*) NRBC abs 0.00 COMPREHENSIVE METABOLIC PANEL - Abnormal Sodium 141 Potassium, pl 4.0 Chloride 103 CO2 26 Anion gap 13 BUN 13 Creatinine 0.54 (*) Glucose 92 Calcium 9.4 Bilirubin, total <0.2 Protein, pl 6.7 Albumin 3.9 Alk phos 44 ALT 9 AST 11 D-DIMER, QUANTITATIVE - Abnormal D-Dimer 1,162 (*) URINALYSIS, MICROSCOPIC ONLY - Abnormal WBC, ur 0-5 RBC, ur 0-2 Epithelial cells, squamous, ur 6-10 (*) Bacteria, ur Trace (*) Mucous, ur Present (*) Culture Reflex Comment Value: Reflex conditions for urine culture (WBC >10) not met. TROPONIN T Troponin T <0.01 PRO B-TYPE NATRIURETIC PEPTIDE NT-proBNP 15 HCG, BLOOD, QUANTITATIVE hCG, quant <5.0 DIFFERENTIAL AUTO Neutrophil abs 4.5 Imm gran abs 0.1 Lymphocyte abs 1.2 Monocyte abs 0.4 Eosinophil abs 0.1 Basophil abs 0.0 Neutrophil pct 72.4 Imm gran pct 0.8 Lymphocyte pct 19.2 Monocyte pct 6.3 Eosinophil pct 1.0 Basophil pct 0.[address] Chest PE W Contrast Final Result XR Chest 1 Vw Portable ED Interpretation Nothing acute Final Result ECG 12 lead Date/Time: 06/22/2019 5:36 AM Performed by: Kim Gomez MD Authorized by: Kim Gomez MD Comments: NSR, 81bpm MDM IMPRESSION: 1. Systemic lupus erythematosus, unspecified SLE type, unspecified organ involvement status (CMS/HCC) 2. Shortness of breath ATTESTATIONS: This note is prepared by Paulina Singleton acting as a scribe for Kim Gomez MD electronically signed this note at 6:43 AM on 06/22/2019. I, Kim Gomez MD have personally performed the services described in the documentation , reviewed the documentation, as recorded by the scribe in my presence, and it accurately and completely records my words and actions. Kim Gomez MD 06/22/19 0643 * Leti Gutierres RN - 06/22/2019 3:20 AM CDT Pt to er 14 c/o SOB x 2 days--states hx asthma. 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 Pt states hx lupus. Pt states worried due to working in the public. Pt also c/o mouth sores, sore throat. Pt states SOB wakes her up through the night. documented in this encounter Miscellaneous Notes * ED Re-evaluation Note - Kim Gomez MD - 06/22/2019 6:48 AM CDT ED Re-evaluation Patient complains of right sided scalp pain for several days; has no obvious rash or pustules. Because of current immunosuppression, will treat with Valcyclovir 1000mg twice daily for 7 days for possible herpes zoster. Patient given instructions and voiced understanding. Kim Gomez MD 06/22/19 0651 documented in this encounter Plan of Treatment Not on file documented as of this encounter Procedures Procedure Name Priority Date/Time Associated Diagnosis Comments CT CHEST PE W CONTRAST ED 0 5:35 AM CDT EGFR STAT 06/22/2019 4:23 AM CDT DIFFERENTIAL AUTO STAT 06/22/2019 4:2 3 AM CDT PRO B-TYPE NATRIURETIC PEPTIDE STAT 06/22/2019 4:23 AM CDT CBC WITH AUTO DIFFERENTIAL STAT 06/22/2019 4:23 AM CDT D-DIMER, QUANTITATIVE STAT 06/22/2019 4:23 AM CDT HCG, BLOOD, QUANTITATIVE STAT 06/22/2019 4:23 AM CDT TROPONIN T STAT 06/22/2019 4:23 AM CDT COMPREHENSIVE METABOLIC PANEL STAT 06/22/2019 4:23 AM CDT XR CHEST 1 VIEW ED 06/22/2019 4:03 AM CDT URINALYSIS AND REFLEX TO MICROSCOPIC AND CULTURE STAT 06/22/2019 3:47 AM CDT URINALYSIS, MICROSCOPIC ONLY STAT 06/22/2019 3:47 AM CDT ECG 12-LEAD STAT 06/22/2019 3:27 AM CDT documented in this encounter Results * CT Chest PE W Contrast (06/22/2019 5:35 AM CDT) Anatomical Region Laterality Modality Body N/A Computed Tomogra phy 06/22/2019 5:27 AM CDT Narrative 06/22/2019 5:54 AM CDT [facility] ?Imaging Result Name: CARITO ELDER ? Ordering Phys: KIM GOMEZ Age: 29 ?Date of : 1990 ? Accession Number: [id number] Date of Service: 06/22/2019 ??Gender: F EXAM DESCRIPTION: ??CT CHEST PE W CONTRAST REASON FOR STUDY: ??29 y/o F with a h/o lupus, chronic kidney disease, anemia, and fibromyalgia presents to the ED with complaints of mouth sores and chest pain with cough, SOB, and sore throat onset approximately 2 days [employer]. ??Non smoker, elevated d-dimer 1162. Duration: 2 days TECHNIQUE: ??CT angiogram of the chest performed with intravenous contrast using helical scanning technique with dynamic intravenous contrast injection. Reconstructed coronal and sagittal MPR images reviewed. All images stored on PACS. 3D MIP images rendered on scanning unit and reviewed at time of interpretation. Automated exposure control was used as a dose optimization technique for this examination. CONTRAST TYPE/DOSE: ??120ml of Opti 350 injected via right AC COMPARISON: ??None available ??VASCULATURE: No identified pulmonary emboli. LUNGS: No nodules or masses. No pneumonia. PLEURA: No effusion. No pneumothorax. MEDIASTINUM/KALA: No identified masses or abnormal nodes. HEART: Heart size is normal with no pericardial effusion. AXILLA: Bilateral axillary lymphadenopathy. ??The largest right axillary lymph node measures 1.3 cm in the short axis. ??The largest left axillary lymph node measures 1.4 cm in the short axis. CHEST WALL: No masses. ??No subcutaneous air. HARDWARE/LINES/TUBES: None. UPPER ABDOMEN: No significant abnormality. MUSCULOSKELETAL: No significant abnormality. OTHER: No significant abnormality. IMPRESSION: 1. ??No evidence of pulmonary embolism. ??No acute cardiopulmonary findings. 2. ??Nonspecific bilateral axillary lymphadenopathy which can be seen with lupus. ??Correlate clinically. THIS IS AN ELECTRONICALLY VERIFIED FINAL REPORT 06/22/2019 5:51 AM - Electronically signed by Bruce Woo M.D. MARIAA: MARIAA D: ??06/22/2019 5:51 AM T: ??06/22/2019 5:51 AM Report ID: [id number] Reading Location: ??[id number] Procedure Note Bruce Woo MD - 06/22/2019 [facility] Imaging Result Name: CARITO ELDER Ordering Phys: KIM GOMEZ Age: 29 Date of : 1990 Accession Number: [id number] Date of Service: 06/22/2019 Gender: F EXAM DESCRIPTION: CT CHEST PE W CONTRAST REASON FOR STUDY: 29 y/o F with a h/o lupus, chronic kidney disease,anemia, and fibromyalgia presents to the ED with complaints of mouth sores andchest pain with cough, SOB, and sore throat onset approximately 2 days [employer].Non smoker, elevated d-dimer 1162. Duration: 2 days TECHNIQUE: CT angiogram of the chest performed with intravenouscontrast using helical scanning technique with dynamic intravenous contrastinjection. Reconstructed coronal and sagittal MPR images reviewed. All images storedon PACS. 3D MIP images rendered on scanning unit and reviewed at time of interpretation. Automated exposure control was used as a doseoptimization technique for this examination. CONTRAST TYPE/DOSE: 120ml of Opti 350 injected via right AC COMPARISON: None available VASCULATURE: No identified pulmonary emboli. LUNGS: No nodules or masses. No pneumonia. PLEURA: No effusion. No pneumothorax. MEDIASTINUM/KALA: No identified masses or abnormal nodes. HEART: Heart size is normal with no pericardial effusion. AXILLA: Bilateral axillary lymphadenopathy. The largest right axillarylymph node measures 1.3 cm in the short axis. The largest left axillary lymphnode measures 1.4 cm in the short axis. CHEST WALL: No masses. No subcutaneous air. HARDWARE/LINES/TUBES: None. UPPER ABDOMEN: No significant abnormality. MUSCULOSKELETAL: No significant abnormality. OTHER: No significant abnormality. IMPRESSION: 1. No evidence of pulmonary embolism. No acute cardiopulmonaryfindings. 2. Nonspecific bilateral axillary lymphadenopathy which can be seenwith lupus. Correlate clinically. THIS IS AN ELECTRONICALLY VERIFIED FINAL REPORT 06/22/2019 5:51 AM - Electronically signed by Bruce Woo M.D. MARIAA: MARIAA Report ID: [id number] Reading Location: [id number] us Kim Gomez MD IMG CT PROCEDURES Final Re sult * eGFR (06/22/2019 4:23 AM CDT) eGFR 129 mL/min/1.7 3 m2 [facility]PITA MARTIN ([place]) Comment: Interpretive Data Reference Interval Normal ?>/= 90 mL/min/1.73m2 Mildly decreased* ? 60 - 89 mL/min/1.73m2 Mildly to moderately decreased ?45 - 59 mL/min/1.73m2 Moderately to severely decreased ??30 - 44 mL/min/1.73m2 Severely decreased ?15 - 29 mL/min/1.73m2 Kidney Failure ?< 15 ??mL/min/1.73m2 *Relative to young adult level If -Irish multiply value by 1.16. Estimated glomerular filtration [...] was last reviewed 2015. Blood specimen (specimen) 06/22/2019 4:23 AM CDT 06/22/2019 4:26 AM CDT us Kim Gomez MD LAB BLOOD ORDERABLES Final Result ARPITA VERONICA ([place]) 1 [facility] Department [place] [address] * Differential, auto (06/22/2019 4:23 AM CDT) Neutrophil abs 4.5 1.7 - 6.5 K/cumm [facility] ([place]) Imm gran abs 0.1 0.0 - 0.1 K/cumm [facility] ([place]) Lymphocyte abs 1.2 0.8 - 3.3 K/cumm [facility] ([place]) Monocyte abs 0.4 0.2 - 0.8 K/cumm [facility] ([place]) Eosinophil abs 0.1 0.0 - 0.5 K/cumm [facility] ([place]) Basophil abs 0.0 0.0 - 0.1 K/cumm [facility] ([place]) Neutrophil pct 72.4 % [facility] ([place]) Comment: Interpretive Data Percent cell count reference ranges are not reported, since discordance with absolute values may lead to misinterpretation of CBC data. Current Interpretive Data was last revised on 2017. Imm gran pct 0.8 % [facility] ([place]) Comment: Interpretive Data Percent cell count reference ranges are not reported, since discordance with absolute values may lead to misinterpretation of CBC data. Current Interpretive Data was last revised on 2017. Lymphocyte pct 19.2 % [facility] ([place]) Comment: Interpretive Data Percent cell count reference ranges are not reported, since discordance with absolute values may lead to misinterpretation of CBC data. Current Interpretive Data was last revised on 2017. Monocyte pct 6.3 % [facility] ([place]) Comment: Interpretive Data Percent cell count reference ranges are not reported, since discordance with absolute values may lead to misinterpretation of CBC data. Current Interpretive Data was last revised on 2017. Eosinophil pct 1.0 % [facility] ([place]) Comment: Interpretive Data Percent cell count reference ranges are not reported, since discordance with absolute values may lead to misinterpretation of CBC data. Current Interpretive Data was last revised on 2017. Basophil pct 0.3 % [facility] ([place]) Comment: Interpretive Data Percent cell count reference ranges are not reported, since discordance with absolute values may lead to misinterpretation of CBC data. Current Interpretive Data was last revised on 2017. Blood specimen (specimen) 06/22/2019 4:23 AM CDT 06/22/2019 4:26 AM CDT Kim Gomez MD LAB BLOOD ORDERABLES Final Result Performing Organization Address City/[facility]/ZIP Co de Phone Number ARPITA MARTIN ([place]) 1 [facility] [employer] [place] [address] * (ABNORMAL) D-dimer, quantitative (06/22/2019 4:23 AM CDT) D-Dimer 1,162(H) <=499 ng/mL FEU ARPITA MARTIN ([place]) Comment: Interpretive data FDA approved the D-dimer, [...] last revised on 2019. Blood specimen (specimen) 06/22/2019 4:23 AM CDT 06/22/2019 4:26 AM CDT Kim Gomez MD LAB BLOOD ORDERABLES Final Result Performing Organization Address City/[facility]/ZIP Co de Phone Number ARPITA MARTIN ([place]) 1 [facility] [place] [address] * hCG, blood, quantitative (06/22/2019 4:23 AM CDT) hCG, quant <5.0 0.0 - 5.0 IUnits/L ARPITA MARTIN ([place]) Comment: Interpretive Data Non- Female premenopausal: < or = 5.0 IUnits/L Men: < 5.0 IUnits/L Weeks of Gestation ? Reference Interval ?? 3 to 6 ? 5.8-31,795 IUnits/L ?? 7 to 10 ? 3,697-186,977 IUnits/L ??12 to 15 ?27,832- 70,791 IUnits/L ??16 to 18 ? 9,040- 58,179 IUnits/L Current Interpretive Data was last revised on 2017. Blood specimen (specimen) 06/22/2019 4:23 AM CDT 06/22/2019 4:26 AM CDT Kim Gomez MD LAB BLOOD ORDERABLES Final Result ARPITA MARTIN ([place]) 1 [facility] [place] [address] * Pro B-type natriuretic peptide (06/22/2019 4:23 AM CDT) NT-proBNP 15 <=300 pg/mL [facility]PITA MARTIN ([place]) Comment: Interpretive Comments: A. Dyspnea in Acute Care Setting All Ages: ?< 300 pg/ml, acute heart failure unlikely. < 50 yrs: ?300 - 450 pg/ml, further investigation warranted. ? > 450 pg/ml, acute heart failure likely. 50 - 74 yrs: ? 300 - 900 pg/ml, further investigation warranted. ? > 900 pg/ml, acute heart failure likely . > or = 75 yrs: ? 450 - 1800 pg/ml, further investigation warranted. ? > 1800 pg/ml, acute heart failure likely. B. Non-acute Setting < 75 yrs ? < 125 pg/ml, rules out heart failure. ? > or = 125 pg/ml, further investigation warranted. > or = 75 yrs ?< 450 pg/ml, rules out heart failure. ? > or = 450 pg/ml, further investigation warranted. - Knowledge of each individual patient's NT-proBNP range may be more useful than using similar cut-points for every patient. Please note that marked elevations in NT-proBNP levels may be observed in state other than Left Ventricular Congestive Failure, including: acute coronary syndromes, right heart strain/failure (including pulmonary embolism and cor pulmonale), critical illness, renal failure, as well as advanced age. - References: 1. Zackary PROCOTR et.al. Eur Heart J. 2006:27:330-337. 2. Yvan RW, Anne JOSEPH. J. AM Hema Cardiol: Cardiovasc Imag. 2009;2: 216- 225. Interpretive Data Last Revised Date: 2017. Blood specimen (specimen) 06/22/2019 4:23 AM CDT 06/22/2019 4:26 AM CDT us Kim Gomez MD LAB BLOOD ORDERABLES Final Result ARPITA MARTIN ([place]) 1 [facility] Department of Laboratories [place], [place] [id number] * Troponin T (06/22/2019 4:23 AM CDT) Pathologist [facility] Troponin T <0.01 0.00 - 0.01 ng/mL ARPITA MARTIN ([place]) Comment: Interpretive Data Reference ranges for children <18 years of age have not been established. - > or = 18 years: Serial determinations are recommended for the diagnosis of myocardial infarction. ??Temporal rise and fall are consistent with myocardial infarction when at least one value is above the 99th percentile upper reference limit for troponin assay. ??Journal of the [place] [employer] 2012;60:1581-98. Current Interpretive Data Last Revised Date: 2017. Blood specimen (specimen) 06/22/2019 4:23 AM CDT 06/22/2019 4:26 AM CDT us Kim Gomez MD LAB BLOOD ORDERABLES Final Result [facility] ([place]) 1 [facility] [place] [address] * (ABNORMAL) Comprehensive metabolic panel (06/22/2019 4:23 AM CDT) Sodium 141 135 - 145 mmol/L [facility] ([place]) Potassium, pl 4.0 3.3 - 4.9 mmol/L [facility] ([place]) Chloride 103 97 - 110 mmol/L [facility] ([place]) CO2 26 22 - 32 mmol/L [facility] ([place]) Anion gap 13 2 - 15 mmol/L [facility] ([place]) BUN 13 8 - 25 mg/dL [facility] ([place]) Creatinine 0.54(L) 0.60 - 1.10 mg/dL [facility] ([place]) Glucose 92 70 - 199 mg/dL [facility] ([place]) [...] - 45 Units/L [facility] ([place]) AST 11 10 - 45 Units/L [facility] ([place]) Blood specimen (specimen) 06/22/2019 4:23 AM CDT 06/22/2019 4:26 AM CDT us Kim Gomez MD LAB BLOOD ORDERABLES Final Result [facility] ([place]) 1 [facility] [place] [address] * (ABNORMAL) CBC with auto differential (06/22/2019 4:23 AM CDT) WBC 6.2 3.8 - 9.9 K/cumm [facility] ([place]) Hgb 11.3(L) 11.9 - 15.5 g/dL [facility] ([place]) Hct 35.8 35.6 - 45.5 % [facility] ([place]) Plt 285 150 - 400 K/cumm [facility] ([place]) MPV 9.3 9.1 - 12.3 fL [facility] ([place]) RBC 4.00 3.90 - 5.20 M/cumm [facility] ([place]) MCV 89.5 81.3 - 96.4 fL [facility] ([place]) MCH 28.3 27.1 - 33.3 pg [facility] ([place]) MCHC 31.6(L) 32.3 - 35.7 g/dL [facility] ([place]) RDW CV 15.0(H) 11.1 - 14.9 % [facility] ([place]) RDW SD 48.7(H) 35.7 - 48.1 fL [facility] ([place]) NRBC abs 0.00 0.00 - 0.01 K/cumm [facility] ([place]) Blood specimen (specimen) 06/22/2019 4:23 AM CDT 06/22/2019 4:26 AM CDT us Kim Gomez MD LAB BLOOD ORDERABLES Final Result [facility] ([place]) 1 [facility] Department [place] [address] * XR Chest 1 Vw Portable (06/22/2019 4:03 AM CDT) Anatomical Region Laterality Modality Body, Chest N/A Computed Radiogr aphy 06/22/2019 3:50 AM CDT Narrative 06/22/2019 4:14 AM CDT [facility] ?Imaging Result Name: CARITO ELDER ? Ordering Phys: KIM GOMEZ Age: 29 ?Date of : 1990 ? Accession Number: [id number] Date of Service: 06/22/2019 ??Gender: F EXAM DESCRIPTION: ??XR CHEST 1 VIEW REASON FOR STUDY: ??History of lupus and asthma presents to the ED with complaints of mouth sores and chest pain with cough, SOB, and sore throat, x 2 days, non smokerDuration: 2 days TECHNIQUE: ??Frontal radiographic view of the chest acquired. COMPARISON: ??Chest radiograph from 05/28/2019 ??LUNGS/PLEURA: No focal consolidation or pneumothorax. No pleural effusion. HEART/MEDIASTINUM: Heart size is normal. Normal mediastinal and hilar contours. HARDWARE/LINES/TUBES: None. BONES: No acute findings. OTHER: No other significant finding. ??No acute cardiopulmonary disease. THIS IS AN ELECTRONICALLY VERIFIED FINAL REPORT 06/22/2019 4:10 AM - Electronically signed by Bruce Woo M.D. MARIAA: MARIAA D: ??06/22/2019 4:10 AM T: ??06/22/2019 4:10 AM Report ID: [id number] Reading Location: ??[id number] Procedure Note Bruce Woo MD - 06/22/2019 [facility] Imaging Result Name: CARITO ELDER Ordering Phys: KIM GOMEZ Age: 29 Date of : 1990 Accession Number: [id number] Date of Service: 06/22/2019 Gender: F EXAM DESCRIPTION: XR CHEST 1 VIEW REASON FOR STUDY: History of lupus and asthma presents to the ED with complaints of mouth sores and chest pain with cough, SOB, and sore throat,x 2 days, non smokerDuration: 2 days TECHNIQUE: Frontal radiographic view of the chest acquired. COMPARISON: Chest radiograph from 05/28/2019 LUNGS/PLEURA: No focal consolidation or pneumothorax. No pleural effusion. HEART/MEDIASTINUM: Heart size is normal. Normal mediastinal and hilarcontours. HARDWARE/LINES/TUBES: None. BONES: No acute findings. OTHER: No other significant finding. No acute cardiopulmonary disease. THIS IS AN ELECTRONICALLY VERIFIED FINAL REPORT 06/22/2019 4:10 AM - Electronically signed by Bruce Woo M.D. MARIAA: MARIAA Report ID: [id number] Reading Location: [place] [address] Kim Gomez MD IMG XR PROCEDURES Final Re sult * (ABNORMAL) Urinalysis, microscopic only (06/22/2019 3:47 AM CDT) WBC, ur 0-5 0 - 5 /HPF [facility] MARTIN ([place]) RBC, ur 0-2 0 - 2 /HPF [facility]ITA MARTIN ([place]) Epithelial cells, squamous, ur 6-10(A) 0 - 5 /HPF [facility]PITA MARTIN ([place]) Bacteria, ur Trace(A) ARPITA MARTIN ([place]) Mucous, ur Present(A) ARPITA Ivory ([place]) Culture Reflex Comment Reflex conditions for urine culture (WBC >10) not met. [facility] MARTIN ([place]) Urine 06/22/2019 3:47 AM CDT 06/22/2019 3:50 AM CDT Kim Gomez MD LAB URINE ORDERABLES Final Result Performing Organization Address [facility] Co de Phone Number ARPITA MARTIN ([place]) 1 [facility] [employer] [place] [address] * (ABNORMAL) Urinalysis reflex to microscopic and culture Urine (06/22/2019 3:47 AM CDT) Color, ur Yellow Yellow [facility] [...] will be performed. [facility] ([place]) Urine 06/22/2019 3:47 AM CDT 06/22/2019 3:50 AM CDT Narrative [facility] ([place]) - 06/22/2019 3:53 AM CDT ?? Urine pH is affected by diet, medications, systemic acid-base disturbances, and renal tubular function. ??pH may affect urinary stone formation. ??For example, urine pH below 6.0 may help reduce the tendency for calcium phosphate stones and pH greater than 6.0 may reduce the tendency for uric acid stone formation. Source: [employer]. Last revised 03-08-2017 Kim Gomez MD LAB MICROBIOLOGY - GENERAL ORDERABLES Final Result Performing Organization Address City/[facility]/ZIP Co de Phone Number ARPITA MARTIN ([place]) 1 [facility] [employer] [place] [address] * ECG 12 lead (06/22/2019 3:27 AM CDT) 06/22/2019 3:27 AM CDT Narrative [facility] - 06/23/2019 8:02 AM CDT Vent Rate: 81 bpm RR Interval: 734 msec TX Interval: 132 msec QRS Duration: 85 msec QT Interval: 351 msec QTC Interval: 389 msec P-R-T [place]: 33 - 29 - 10 degrees SINUS RHYTHM NORMAL ECG No change from prior EKG Electronically Signed By: Trsitan Edmondson MD us Kim Gomez MD ECG ORDERABLES Final Resu lt [facility] documented in this encounter Visit Diagnoses Diagnosis Systemic lupus erythematosus, unspecified SLE type, unspecified organ involvement status (HCC)- Primary Shortness of breath documented in this encounter Administered Medications Inactive Administered Medications - up to 3 most recent administrations Medication Order MAR Action Action Date Dose Rate Site al & mag hydroxide mbfltajcfcm-gyxoliveprzwrfl-ltiqww ine-nystatin (MAGIC MOUTHWASH) suspension - 10 mL, swish & spit, Every 4 hours PRN, mucositis, Starting on 06/22/19 at 0540 Given 06/22/2019 6:23 AM CDT 10 mL ioversoL (OPTIRAY 350) syringe syringe 125 mL 125 mL, intravenous, Once in imaging, contrast, Starting on 06/22/19 at 0526, For 1 dose Given 06/22/2019 5:26 AM CDT 125 mL documented in this encounter Active and Recently Administered Medications Times are shown in CDT. PRN Medication Order 06/20/2019 06/21/2019 06/22/2019 al & mag hydroxide ljbgiinadvj-zhyudjbvmlumlax-aohn candelario-nystatin (MAGIC MOUTHWASH) suspension - 10 mL, swish & spit, Every 4 hours PRN, mucositis, Starting on 06/22/19 at 0540 0623 (Given - Provid er: Leti Gutierres RN) ioversoL (OPTIRAY 350) syringe syringe 125 mL (COMPLETED) 125 mL, intravenous, Once in imaging, contrast, Starting on 06/22/19 at 0526, For 1 dose 0526 (Given - Provid er: Ade Lombardi, RT - Comment: [id number] ) documented in this encounter Orders Medications Ordered That Omer ht Not Have Been Administered Count Last Ordered Date First Ordered Date ioversoL (OPTIRAY 350) syrin ge syringe 125 mL 1 06/22/2019 documented in this encounter Care Teams Manager Mass Relationship Specialty Start [place] [id number] [address] [place] [id number] PCP - General 11/16/18 06/24/19 [place] [id number] [address] [place] [address] 11/16/18 documented as of this encounter
--- OUTSIDE RECORDS SUMMARY | 2024-02-24 20:16 | XMS_ITS | Encounter Summary ---
Author Organization [facility] Address [address] [place] [address] Care Team Providers Care Home Administrator Name Role Phone Huseyin Dangelo MD Primary Care Provider [phone] Huseyin Dangelo MD Unavailable [phone] Reason for Visit * Reason Comments Post-op Encounter Details Date Type Department Care Team (Late st Contact Info) Description 02/17/2019 8:00 AM PRODUCE TEAM MEMBER Office Visit [facility] Hand Surgery [address] [place] [address] [address] [place] [phone] Chino Zaldivar MD [address] [place] [address] Laceration of flexor muscle, fascia and tendon [...] Progress Notes * Chino Zaldivar MD - 02/17/2019 8:00 AM CST Patient ID: Carito Rausch is a 28 y.o. female. Visit Date: 02/17/2019 Chief Complaint: Status post right wrist median nerve repair HPI: She returns with 0/10 pain no fevers or chills Review of Systems There were no vitals taken for this visit. Physical Exam: Healed incision with no signs of infection Xray / Imaging: None 1. Laceration of flexor muscle, fascia and tendon of right little finger at wrist and hand level, initial encounter PLAN: I answered multiple questions I'll follow-up with her on an as-needed basis Procedures UCE TEAM MEMBER documented in this encounter Plan of Treatment Not on file documented as of this encounter Visit Diagnoses Diagnosis Laceration of flexor muscle, fascia and tendon of right little finger at wrist and hand level, initial encounter- Primary documented in this encounter Care Teams Home Administrator Relationship Specialty Start [place] [id number] [address] [place] [address] PCP - General 11/16/18 06/24/19 [place] [id number] [address] [place] [address] 11/16/18 documented as of this encounter
--- OUTSIDE RECORDS SUMMARY | 2024-02-24 20:16 | XMS_ITS | Encounter Summary ---
Author Organization [facility] Address [address] [place] [address] Care Team Providers Care Career Consultant Name Role Phone Huseyin Dangelo MD Primary Care Provider [phone] Huseyin Dangelo MD Unavailable [phone] Encounter Details Date Type Department Care Team (Late st Contact Info) Description 01/06/2019 Telephone [facility] Hand Surgery [address] [place] [address] Chino Zaldivar MD [address] [place] [phone] Social History Tobacco Use Types Packs/Day [...] encounter Miscellaneous Notes * Telephone Encounter - Rachna Vogel MA - 01/06/2019 12:25 PM CST Spoke with pt and advised her paperwork was faxed in. 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
--- OUTSIDE RECORDS SUMMARY | 2024-02-24 20:16 | XMS_ITS | Encounter Summary ---
Author Organization [facility] Healthcare Address [address] [place] [address] Care Team Providers Care Securities Underwriter Name Role Phone Huseyin Dangelo MD Primary Care Provider [phone] Huseyin Dangelo MD Unavailable [phone] Reason for Visit * Reason Comments Vomiting Alcohol Intoxication Encounter Details Date Type Department Care Team (Late st Contact Info) Description 01/19/2019 5:34 AM [facility] - 01/19/2019 8:22 AM [facility] Emergency [facility] Emergency Department [address] [place] [address] Maryam Gomez MD [address] [place] [address] Nausea and vomiting, intractability of vomiting not specified, unspecified vomiting type (Primary Dx); Toxic effect of alcohol, unintentional, initial encounter Discharge Disposition: Discharge to home [...] Sign Reading Time Taken Comments Blood Pressure 140/98 01/19/2019 8:00 AM [facility] Pulse 106 01/19/2019 8:00 AM [facility] Temperature 36.7 ??C (98 ??F) 01/19/2019 5:53 AM [facility] Respiratory Rate 18 01/19/2019 5:53 AM [facility] Oxygen Saturation 93% 01/19/2019 8:00 AM [facility] Inhaled Oxygen Concentration - - Weight 63.5 kg (140 lb) 01/19/2019 5:53 AM [facility] Height 157.5 cm (5' 2 ) 01/19/2019 5:53 AM [facility] Body Mass Index 25.61 01/19/2019 5:53 AM [facility] documented in this encounter Discharge Diagnoses Diagnosis Toxic effect of unspecified alcohol, accidental (unintentional), initial encounter - TOXIC EFFECT OF UNSPECIFIED ALCOHOL, ACCIDENTAL (UNINTENTIONAL), INITIAL ENCOUNTER Nausea with vomiting, unspecified - NAUSEA WITH VOMITING, UNSPECIFIED Diarrhea, unspecified - DIARRHEA, UNSPECIFIED Other specified events, undetermined intent, initial encounter - OTHER SPECIFIED EVENTS, UNDETERMINED INTENT, INITIAL ENCOUNTER Unspecified place or not applicable - UNSPECIFIED PLACE OR NOT APPLICABLE Systemic lupus erythematosus, unspecified (HCC) - SYSTEMIC LUPUS ERYTHEMATOSUS, UNSPECIFIED Fibromyalgia - FIBROMYALGIA Unspecified myalgia and myositis Anemia, unspecified - ANEMIA, UNSPECIFIED Chronic kidney disease, unspecified - CHRONIC KIDNEY DISEASE, UNSPECIFIED Rheumatoid arthritis, unspecified (HCC) - RHEUMATOID ARTHRITIS, UNSPECIFIED documented in this encounter Discharge Instructions * Discharge Instructions* Maryam Gomez MD - 01/19/2019 8:09 AM [facility] Plenty of clear liquids. Zofran 4mg every 6 hours as needed for nausea. Continue omeprazole as directed. Do not drink alcohol. Make an appointment with your primary physician this week. Make an appointment with Dr. Denis (gastroenterology) next available appointment. [facility] * Attachments The following attachments cannot be sent through Care Everywhere. * Acute Nausea and Vomiting (AfterCare(R) Instructions(ER/ED)) (Micronesian) documented in this encounter Medications at Time of Discharge ALPRAZolam (XANAX) 0.25 mg tablet Take 0.25 mg by mouth 3 (three) times a day as needed 1 leflunomide (ARAVA) 10 mg tablet Take 10 mg by mouth daily 0 omeprazole (PriLOSEC) 20 mg capsule Take 20 mg by mouth daily 0 ondansetron ODT (ZOFRAN-ODT) 4 mg disintegrating tablet Dissolve 1 tablet for mild to moderate nausea or vomiting or 2 tablets for severe nausea or vomiting oral twice a day as needed. 15 tablet 01/19/2019 0 predniSONE (DELTASONE) 10 mg tablet Take 10 mg by mouth daily 0 documented as of this encounter Ordered Prescriptions Prescription Sig Dispense Quantity Refills Last Filled Start Date End Date ondansetron ODT (ZOFRAN-ODT) 4 mg disintegrating tablet Dissolve 1 tablet for mild to moderate nausea or vomiting or 2 tablets for severe nausea or vomiting oral twice a day as needed. 15 tablet 01/19/2019 0 documented in this encounter Discharge Disposition Disposition Code Departure Means Destination Discharge to home or self care documented in this encounter ED Notes * Maryam Gomez MD - 01/19/2019 6:22 AM CST HPI Chief Complaint Patient presents with ??? Vomiting ??? Alcohol Intoxication ( 6:12 AM 01/19/2019 ): A 28 y/o female with a PMHx of lupus, fibromyalgia, anemia, depression, CKD, and RA presents to the ED for evaluation of vomiting that began around 1:00 am this morning. Associated symptoms include nausea and diarrhea. She denies any fever, cough, SOB, chest pain, dizziness,or lightheadedness. Patient states that she was out with her friends last evening and ended up consuming large amounts of alcohol. She states that her current symptoms are consistent with previous times she has consumed a lot of alcohol. She also notes that she doesn't remember a time recently where she has been able to go out and not experience these symptoms. Patient notes she recently began her menstrual cycle. No other alleviating or exacerbating factors were noted at this time. The patient's current PCP is Dr. Huseyin Dangelo. Patient History Patient Active Problem List Diagnosis Date Noted ??? Laceration of flexor muscle, fascia and [...] Currently ??? Drug use: Never Social History Patient does not qualify to have social determinant information on file (likely too young). Social History Narrative ??? Not on file Review of Systems Review of Systems Constitutional: Negative for chills, fatigue and fever. HENT: Negative for congestion, ear pain, rhinorrhea, sneezing and sore throat. Respiratory: Negative for cough, shortness of breath and wheezing. Cardiovascular: Negative for chest pain and palpitations. Gastrointestinal: Positive for diarrhea, nausea and vomiting. Negative for abdominal pain and constipation. Genitourinary: Negative for dysuria and frequency. Musculoskeletal: Negative for arthralgias, back pain, myalgias and neck pain. Skin: Negative for rash and wound. Neurological: Negative for dizziness, syncope, weakness, light-headedness and headaches. All other systems reviewed and are negative. Physical Exam ED Triage Vitals [01/19/19 0553] Temp Pulse Resp BP SpO2 36.7 ??C (98 ??F) 115 18 143/90 98 % Temp src Heart Rate Source Patient Position BP Location FiO2 (%) Oral -- -- -- -- Physical Exam Vitals signs and nursing note reviewed. Constitutional: General: She is not in acute distress. Appearance: She is well-developed. Comments: Appears tearful and anxious. HENT: Head: Normocephalic and atraumatic. Eyes: Conjunctiva/sclera: [...] Abdomen is soft. Tenderness: There is no tenderness. Musculoskeletal: Normal range of motion. General: No tenderness or deformity. Skin: General: Skin is warm and dry. Capillary Refill: Capillary refill takes less than 2 seconds. Coloration: Skin is not pale. Findings: No erythema or rash. Neurological: Mental Status: She is alert and oriented to person, place, and time. Psychiatric: Behavior: Behavior normal. Vitals: 01/19/19 0553 01/19/19 0800 BP: 143/90 140/98 Pulse: 115 106 Resp: 18 Temp: 36.7 ??C (98 ??F) TempSrc: Oral SpO2: 98% 93% Weight: 63.5 kg (140 lb) Height: 157.5 cm (5' 2 ) Labs Reviewed COMPREHENSIVE METABOLIC PANEL - Abnormal Result Value Sodium 143 Potassium, pl 3.3 Chloride 105 CO2 23 Anion gap 15 BUN 9 Creatinine 0.48 (*) Glucose 99 Calcium 9.4 Bilirubin, total <0.2 Protein, pl 6.8 Albumin 4.0 Alk phos 45 ALT 29 AST 22 CBC WITH AUTO DIFFERENTIAL - Abnormal WBC 2.9 (*) Hgb 11.0 (*) Hct 33.2 (*) Plt 215 MPV 10.7 RBC 3.80 (*) MCV 87.4 MCH 28.9 MCHC 33.1 RDW CV 14.0 RDW SD 44.2 NRBC abs 0.00 DIFFERENTIAL AUTO - Abnormal Neutrophil abs 1.6 (*) Imm gran abs 0.0 Lymphocyte abs 0.8 Monocyte abs 0.4 Eosinophil abs 0.0 Basophil abs 0.0 Neutrophil pct 55.3 Imm gran pct 0.3 Lymphocyte pct 27.8 Monocyte pct 15.3 Eosinophil pct 1.0 Basophil pct 0.3 LIPASE Lipase 63 ETHANOL Ethanol <10 HCG, BLOOD, QUANTITATIVE hCG, quant <5.0 EGFR GFR 135 No orders to display Procedures MDM MDM Nausea and vomiting, intractability of vomiting not specified, unspecified vomiting type Toxic effect of alcohol, unintentional, initial encounter Mitra Pastrana scribing for and in the presence of Dr. Maryam Gomez M.D. I electronically sign this document at 6:03 PM on 01/19/19 I, . Dr. Maryam Gomez M.D. have personally performed the services described in the documentation , reviewed the documentation, as recorded by the scribe in my presence, and it accurately and completely records my words and actions. Maryam Gomez MD 01/19/19 1803 [facility] * Iva Perez RN - 01/19/2019 5:57 AM CST Pt arrives to ED with c/o multiple episodes of vomiting and diarrhea after heavy drinking last night. [facility] documented in this encounter Miscellaneous Notes * ED Re-evaluation Note - Maryam Gomez MD - 01/19/2019 7:45 AM [facility] Her nausea is improved. Concerned because she has had an episode of colitis around two weeks ago. She is concerned her prednisone is causing her GI issues. She is also concerned that since she hasn'tbeen able to keep her prednisone down if she should have a round of steroids while she is here. Plan to give patient a round of decadron IV. Recommended her to follow up with a GI doctore and her RA doctor. Vitals: 01/19/19 0553 01/19/19 0800 BP: 143/90 140/98 Pulse: 115 106 Resp: 18 Temp: 36.7 ??C (98 ??F) TempSrc: Oral SpO2: 98% 93% Weight: 63.5 kg (140 lb) Height: 157.5 cm (5' 2 ) Labs Reviewed COMPREHENSIVE METABOLIC PANEL - Abnormal Result Value Sodium 143 Potassium, pl 3.3 Chloride 105 CO2 23 Anion gap 15 BUN 9 Creatinine 0.48 (*) Glucose 99 Calcium 9.4 Bilirubin, total <0.2 Protein, pl 6.8 Albumin 4.0 Alk phos 45 ALT 29 AST 22 CBC WITH AUTO DIFFERENTIAL - Abnormal WBC 2.9 (*) Hgb 11.0 (*) Hct 33.2 (*) Plt 215 MPV 10.7 RBC 3.80 (*) MCV 87.4 MCH 28.9 MCHC 33.1 RDW CV 14.0 RDW SD 44.2 NRBC abs 0.00 DIFFERENTIAL AUTO - Abnormal Neutrophil abs 1.6 (*) Imm gran abs 0.0 Lymphocyte abs 0.8 Monocyte abs 0.4 Eosinophil abs 0.0 Basophil abs 0.0 Neutrophil pct 55.3 Imm gran pct 0.3 Lymphocyte pct 27.8 Monocyte pct 15.3 Eosinophil pct 1.0 Basophil pct 0.3 LIPASE Lipase 63 ETHANOL Ethanol <10 HCG, BLOOD, QUANTITATIVE hCG, quant <5.0 EGFR GFR 135 No orders to display Procedures Mitrajuanita Pastrana scribing for and in the presence of Dr. Maryam Gomez M.D. I electronically sign this document at 2:30 AM on 01/27/19 I, . Dr. Maryam Gomez M.D. have personally performed the services described in the documentation , reviewed the documentation, as recorded by the scribe in my presence, and it accurately and completely records my words and actions. Maryam Gomez MD 01/27/19 0231 [facility] documented in this encounter Plan of Treatment Not on file documented as of this encounter Procedures Procedure Name Priority Date/Time Associated Diagnosis Comments EGFR STAT 01/19/2019 6:37 AM [facility] DIFFERENTIAL AUTO STAT 01/19/2019 6:3 7 AM [facility] CBC WITH AUTO DIFFERENTIAL STAT 01/19/2019 6:37 AM [facility] HCG, BLOOD, QUANTITATIVE STAT 01/19/2019 6:37 AM [facility] LIPASE STAT 01/19/2019 6:37 AM FINISH[facility]IES ETHANOL STAT 01/19/2019 6:37 AM [facility] COMPREHENSIVE METABOLIC PANEL STAT 01/19/2019 6:37 AM [facility] documented in this encounter Results * (ABNORMAL) Differential, auto (01/19/2019 6:37 AM [facility]) Neutrophil abs 1.6(L) 1.7 - 6.5 K/cumm [facility] ([place]) Imm gran abs 0.0 0.0 - 0.1 K/cumm [facility] ([place]) Lymphocyte abs 0.8 0.8 - 3.3 K/cumm [facility] ([place]) Monocyte abs 0.4 0.2 - 0.8 K/cumm [facility] ([place]) Eosinophil abs 0.0 0.0 - 0.5 K/cumm [facility] ([place]) Basophil abs 0.0 0.0 - 0.1 K/cumm [facility] ([place]) Neutrophil pct 55.3 % [facility] ([place]) Comment: Interpretive [...] was last revised on 2017. Lymphocyte pct 27.8 % [facility] ([place]) Comment: Interpretive Data Percent cell count reference ranges are not reported, since discordance with absolute values may lead to misinterpretation of CBC data. Current Interpretive Data was last revised on 2017. Monocyte pct 15.3 % [facility] ([place]) Comment: Interpretive Data [...] last revised on 2017. Blood specimen (specimen) 01/19/2019 6:37 AM [facility] 01/19/2019 7:14 AM [facility] Maryam Gomez MD LAB BLOOD ORDERABLES Final Result [facility] ([place] [place] [address] * (ABNORMAL) CBC with auto differential (01/19/2019 6:37 AM [facility]) WBC 2.9(L) 3.8 - 9.9 K/cumm [facility] ([place]) Hgb 11.0(L) 11.9 - 15.5 g/dL [facility] ([place]) Hct 33.2(L) 35.6 - 45.5 % [facility] ([place]) Plt 215 150 - 400 K/cumm [facility] ([place]) MPV 10.7 9.1 - 12.3 fL [facility] ([place]) RBC 3.80(L) 3.90 - 5.20 M/cumm [facility] ([place]) MCV 87.4 81.3 - 96.4 fL [facility] ([place]) MCH 28.9 27.1 - 33.3 pg [facility] ([place]) MCHC 33.1 32.3 - 35.7 g/dL [facility] ([place]) RDW CV 14.0 11.1 - 14.9 % [facility]) RDW SD 44.2 35.7 - 48.1 fL [facility]) NRBC abs 0.00 0.00 - 0.01 K/cumm [facility] ([place]) Blood specimen (specimen) 01/19/2019 6:37 AM [facility] 01/19/2019 7:14 AM [facility] us Maryam Gomez MD LAB BLOOD ORDERABLES Final Result Performing Organization Address City/[facility]/ZIP Co de Phone Number [facility] ([place]) [facility] [place] [address] * eGFR (01/19/2019 6:37 AM [facility]) eGFR 135 mL/min/1.7 3 m2 [facility] ([place]) Comment: Interpretive Data Reference Interval Normal ?>/= 90 mL/min/1.73m2 Mildly decreased* ? 60 - 89 mL/min/1.73m2 Mildly to moderately decreased ?45 - 59 mL/min/1.73m2 Moderately to severely decreased ??30 - 44 mL/min/1.73m2 Severely decreased ?15 - 29 mL/min/1.73m2 Kidney Failure ?< 15 ??mL/min/1.73m2 *Relative to young adult level If -Maldivian multiply value by 1.16. Estimated glomerular filtration [...] was last reviewed 2015. Blood specimen (specimen) 01/19/2019 6:37 AM [facility] 01/19/2019 6:52 AM [facility] us Maryam Gomez MD LAB BLOOD ORDERABLES Final Result [facility] ([place]) 1 [facility] [place] [address] * hCG, blood, quantitative (01/19/2019 6:37 AM [facility]) hCG, quant <5.0 0.0 - 5.0 IUnits/L [facility] ([place]) Comment: Interpretive Data Non- Female premenopausal: < or = 5.0 IUnits/L Men: < 5.0 IUnits/L Weeks of Gestation ? Reference Interval ?? 3 to 6 ? 5.8-31,795 IUnits/L ?? 7 to 10 ? 3,697-186,977 IUnits/L ??12 to 15 ?27,832- 70,791 IUnits/L ??16 to 18 ? 9,040- 58,179 IUnits/L Current Interpretive Data was last revised on 2017. Blood specimen (specimen) 01/19/2019 6:37 AM [facility] 01/19/2019 6:53 AM [facility] Maryam Gomez MD LAB BLOOD ORDERABLES Final Result Performing Organization Address [facility] Co de Phone Number [facility] ([place]) [address] [place] [address] [employer] [place] [address] * Ethanol (01/19/2019 6:37 AM [facility]) Ethanol <10 <=10 mg/dL [facility] ([place]) Comment: Interpretive Data Legal limit of intoxication > or = 80 mg/dL Levels > or = 400 mg/dL are potentially TOXIC. Current interpretive data was last revised on 2018. Blood specimen (specimen) 01/19/2019 6:37 AM [facility] 01/19/2019 6:52 AM [facility] Maryam Gomez MD LAB BLOOD ORDERABLES Final Result Performing Organization Address City/[facility]/ZIP Co de Phone Number [facility] ([place]) [address] [place] [address] [place] [address] * Lipase (01/19/2019 6:37 AM [facility]) Lipase 63 10 - 99 Units/L [facility] ([place]) Blood specimen (specimen) 01/19/2019 6:37 AM [facility] 01/19/2019 6:52 AM [facility] us Maryam Gomez MD LAB BLOOD ORDERABLES Final Result [facility] ([place] [place] [address] * (ABNORMAL) Comprehensive metabolic panel (01/19/2019 6:37 AM [facility]) Sodium 143 135 - 145 mmol/L [facility] ([place]) Potassium, pl 3.3 3.3 - 4.9 mmol/L [facility] ([place]) Chloride 105 97 - 110 mmol/L [facility]) CO2 23 22 - 32 mmol/L [facility]) Anion gap 15 2 - 15 mmol/L [facility] ([place]) BUN 9 8 - 25 mg/dL [facility]) Creatinine 0.48(L) 0.60 - 1.10 mg/dL [facility] ([place]) [...] - 8.5 g/dL [facility] ([place]) Albumin 4.0 3.5 - 5.0 g/dL [facility] ([place]) Alk phos 45 40 - 130 Units/L [facility] ([place]) ALT 29 7 - 45 Units/L [facility]) AST 22 10 - 45 Units/L [facility] ([place]) Blood specimen (specimen) 01/19/2019 6:37 AM [facility] 01/19/2019 6:52 AM FIN[facility] us Maryam Gomez MD LAB BLOOD ORDERABLES Final Result [facility] ([place]) 1 [facility] [place] [address] documented in this encounter Visit Diagnoses Diagnosis Nausea and vomiting, intractability of vomiting not specified, unspecified vomiting type- Primary Toxic effect of alcohol, unintentional, initial encounter documented in this encounter Administered Medications Inactive Administered Medications - up to 3 most recent administrations Medication Order MAR Action Action Date Dose Rate Site dexAMETHasone (DECADRON) 4 mg/mL injection 4 mg 4 mg, intravenous, Administer over 2 Minutes, Once, On 01/19/19 at 0746, For 1 dose Given 01/19/2019 8:18 AM [facility] 4 mg famotidine (PEPCID) injection 20 mg 20 mg, intravenous, Administer over 2 Minutes, Once, On 01/19/19 at 0653, For 1 dose Given 01/19/2019 6:52 AM [facility] 20 mg LORazepam (ATIVAN) injection 0.25 mg 0.25 mg, intravenous, Once, On 01/19/19 at 0622, For 1 dose, For IV administration, dilute with equal volume of 0.9% sodium chloride. Do not exceed a rate of 2 mg/minute Given 01/19/2019 6:49 AM [facility] 0.25 mg ondansetron (ZOFRAN) injection 4 mg 4 mg, intravenous, Administer over 2 Minutes, Once, On 01/19/19 at 0622, For 1 dose, Indications: Nausea, VomitingIndications:Nausea, Vomiting Given 01/19/2019 6:50 AM [facility] 4 mg sodium chloride 0.9% bolus 1,000 mL 1,000 mL, intravenous, at 1,000 mL/hr, Administer over 1 Hours, Once, On 01/19/19 at 0622, For 1 dose New Bag 01/19/2019 6:49 AM [facility] 1,000 mL 1000 mL/hr sodium chloride 0.9% bolus 1,000 mL 1,000 mL, intravenous, at 1,000 mL/hr, Administer over 1 Hours, Once, On 01/19/19 at 0727, For 1 dose New Bag 01/19/2019 7:30 AM [facility] 1,000 mL 1000 mL/hr documented in this encounter Discontinued Medications Medication Sig Discontinue Reason Start Date End Da te predniSONE (DELTASONE) 5 mg tablet Take 5-15 mg by mouth daily Other 01/19/2019 pregabalin (LYRICA) 75 mg capsule Take 1 capsule (75 mg total) by mouth 2 (two) times a day Other 12/17/2018 01/19/2019 documented as of this encounter Historical Medications * This list may reflect changes made after this encounter. predniSONE (DELTASONE) 10 mg tablet Take 10 mg by mouth daily 05/24/2019 added in this encounter Active and Recently Administered Medications Times are shown in [facility]. Scheduled Medication Order 01/17/2019 01/18/2019 01/19/2019 dexAMETHasone (DECADRON) 4 mg/mL injection 4 mg (COMPLETED) 4 mg, intravenous, Administer over 2 Minutes, Once, On 01/19/19 at 0746, For 1 dose 0818 (Given - Provid er: Rachel Metzger RN) famotidine (PEPCID) injection 20 mg (COMPLETED) 20 mg, intravenous, Administer over 2 Minutes, Once, On 01/19/19 at 0653, For 1 dose 0652 (Given - Provid er: Rachel Metzger RN) LORazepam (ATIVAN) injection 0.25 mg (COMPLETED) 0.25 mg, intravenous, Once, On 01/19/19 at 0622, For 1 dose, For IV administration, dilute with equal volume of 0.9% sodium chloride. Do not exceed a rate of 2 mg/minute 0649 (Given - Provid er: Rachel Metzger RN) ondansetron (ZOFRAN) injection 4 mg (COMPLETED) 4 mg, intravenous, Administer over 2 Minutes, Once, On 01/19/19 at 0622, For 1 dose, Indications: Nausea, Vomiting 0650 (Given - Provid er: Rachel Metzger RN) sodium chloride 0.9% bolus 1,000 mL (COMPLETED) 1,000 mL, intravenous, at 1,000 mL/hr, Administer over 1 Hours, Once, On 01/19/19 at 0622, For 1 dose 0649 (New Bag - Prov ider: Rachel Metzger RN)0813 (Stopped - Provider: Rachel Metzger RN) sodium chloride 0.9% bolus 1,000 mL (COMPLETED) 1,000 mL, intravenous, at 1,000 mL/hr, Administer over 1 Hours, Once, On 01/19/19 at 0727, For 1 dose 0730 (New Bag - Prov ider: Rachel Metzger RN)0819 (Stopped - Provider: Rachel Metzger, PRO) documented in this encounter Orders Medications Ordered That Omer ht Not Have Been Administered Count Last Ordered Date First Ordered Date famotidine (PEPCID) injection 20 mg 1 01/19 IV Count Last Ordered Date First Orde red Date INSERT PERIPHERAL IV 1 01/19/2019 documented in this encounter Care Teams Securities Underwriter Relationship Specialty Start [place] [address] [address] [place] [id number] PCP - General 11/16/18 06/24/19 [place] [address] [address] [place] [id number] 11/16/18 documented as of this encounter
--- OUTSIDE RECORDS SUMMARY | 2024-02-24 20:16 | XMS_ITS | Encounter Summary ---
Author Organization [facility] Facility Care Team Providers Care Hotel Night Auditor Name Role Phone Huseyin Dangelo MD Primary Care Provider [phone] Huseyin Dangelo MD Unavailable [phone] Encounter Details Date Type Department Care Team (Latest Contact Info) Description 03/18/2019 Travel Social History Tobacco Use Types Packs/Day [...] on filedocumented in this encounter Care Teams Hotel Night Auditor Relationship Specialty Start [place] [address] [address] [place] [id number] PCP - General 11/16/18 06/24/19 [place] [address] [address] [place] [id number] 11/16/18 documented as of this encounter
--- OUTSIDE RECORDS SUMMARY | 2024-02-24 20:16 | XMS_ITS | Encounter Summary ---
Author Organization [facility] Address [address] [place] [address] Care Team Providers Care Recapper Name Role Phone Huseyin Dangelo MD Primary Care Provider [phone] Huseyin Dangelo MD Unavailable [phone] Reason for Visit * Reason Comments Pain Encounter Details Date Type Department Care Team (Late st Contact Info) Description 01/08/2019 10:00 AM TIRE MAKER Office Visit [facility] Hand Surgery [address] [place] [address] [address] [place] [phone] Chino Zaldivar MD [address] [place] [id number] Laceration of flexor muscle, fascia and tendon [...] Progress Notes * Chino Zaldivar MD - 01/08/2019 10:00 AM CST Images from the original note were not included. Patient ID: Carito Rausch is a 28 y.o. female. Visit Date: 01/08/2019 Chief Complaint: Status post right wrist nerve repair HPI: She returns with minimal pain no fevers or chills Review of Systems There were no vitals taken for this visit. Physical Exam: Healed incision with no signs of infection at today's exam Xray / Imaging: None 1. Laceration of flexor muscle, fascia and tendon of right little finger at wrist and hand level, initial encounter PLAN: She is doing significantly better than prior to her most recent surgery. Will place her in a removable brace she is educated as to range of motion. Will remove her sutures today see her back in 2 weeks for examination and she agrees with this plan Procedures MAKER documented in this encounter Plan of Treatment Not on file documented as of this encounter Visit Diagnoses Diagnosis Laceration of flexor muscle, fascia and tendon of right little finger at wrist and hand level, initial encounter- Primary documented in this encounter Care Teams Recapper Relationship Specialty Start [place] [address] [address] [place] [address] PCP - General 11/16/18 06/24/19 [place] [address] [address] [place] [address] 11/16/18 documented as of this encounter
--- OUTSIDE RECORDS SUMMARY | 2024-02-24 20:16 | XMS_ITS | Encounter Summary ---
Author Organization [facility] Care Team Providers Care Branch Store Manager Name Role Phone Huseyin Dangelo MD Primary Care Provider [phone] Huseyin Dangelo MD Unavailable [phone] Encounter Details Date Type Department Care Team (Latest Contact Info) Description 05/28/2019 Travel Social History Tobacco Use Types Packs/Day [...] on filedocumented in this encounter Care Teams Branch Store Manager Relationship Specialty Start [place] [address] [address] [place] [address] PCP - General 11/16/18 06/24/19 [place] [address] [address] [place] [address] 11/16/18 documented as of this encounter
--- OUTSIDE RECORDS SUMMARY | 2024-02-24 20:16 | XMS_ITS | Encounter Summary ---
Author Organization [facility] Address [address] [place] [address] Care Team Providers Care Revenue Inspector Name Role Phone Huseyin Dangelo MD Primary Care Provider [phone] Huseyin Dangelo MD Unavailable [phone] Reason for Visit * Reason Comments Cough Diarrhea Encounter Details Date Type Department Care Team (Late st Contact Info) Description 05/28/2019 9:07 AM CDT - 05/28/2019 10:26 AM CDT Emergency [facility] Emergency Department [address] [place] [address] Esau Perry MD [address] [place] [address] Viral syndrome (Primary Dx) Discharge Disposition: Discharge [...] Sign Reading Time Taken Comments Blood Pressure 121/91 05/28/2019 10:00 AM CDT Pulse 83 05/28/2019 10:00 AM CDT Temperature 36.9 ??C (98.4 ??F) 05/28/2019 9:16 AM CD T Respiratory Rate 16 05/28/2019 9:16 AM CDT Oxygen Saturation 100% 05/28/2019 10:00 AM CDT Inhaled Oxygen Concentration - - Weight 72.6 kg (160 lb) 05/28/2019 9:16 AM CDT Height 160 cm (5' 3 ) 05/28/2019 9:16 AM CDT Body Mass Index 28.34 05/28/2019 9:16 AM CDT documented in this encounter Discharge Diagnoses Diagnosis Viral infection, unspecified - VIRAL INFECTION, UNSPECIFIED documented in this encounter Discharge Instructions * Discharge Instructions* Esau Perry MD - 05/28/2019 10:12 AM CDT Take nausea medicine as needed. Take diarrhea medicine as needed. Drink plenty of clear liquids. * Attachments The following attachments cannot be sent through Care Everywhere. * Viral Syndrome (Jack Frame Tender) (Faroese) documented in this encounter Medications at Time [...] Refills Last Filled Start Date End Date diphenoxylate-atropi ne (LOMOTIL) 2.5-0.025 mg per tabletIndications:di arrhea Take 1 tablet by mouth 4 (four) times a day as needed for diarrhea 20 tablet 05/28/2019 0 ondansetron ODT (ZOFRAN-ODT) 4 mg disintegrating tablet Dissolve 1 tablet oral every 6 hours as needed for nausea or vomiting. 6 tablet 05/28/2019 0 documented in this encounter Discharge Disposition Disposition Code Departure Means Destination Comment s Discharge to home or self assisted documented in this encounter ED Notes * Esau Perry MD - 05/28/2019 9:16 AM CDT HPI Chief Complaint Patient presents with ??? Cough ??? Diarrhea Room (11) 9:11 AM 05/28/2019 Umer Rausch, non-smoker, is a 29 year old female with a PMHx of lupus, anemia and CKD who presents to the ED with a chief complaint of worsening cough and diarrhea, onset last week. Patient reports that she was here on May 23 to be tested for COVID-19, results were negative. States that since coming to the ED her symptoms have worsened. Reports that she has a waxing and waning productive cough, nausea, vomiting, diarrhea, abdominal pain, SOB, sore throat and has difficulty keeping food down. She also complains of ear pain. Patient claims she has been taking Pedialyte to stay hydrated. Also reports she took 4 Imodium yesterday with no relief of symptoms. Patient endorses having a miscarriage while she was admitted on May 23, states her OB is Dr. Sheldon Delgado. She also reports that she was seen at [facility] for a blood test yesterday. Patientreports she has had no vaginal bleeding. Denies fever, urinary issues, headache. PCP: Huseyin Dangelo MD Patient History Patient Active Problem List Diagnosis [...] Positive for ear pain and sore throat. Negative for congestion and rhinorrhea. Eyes: Negative for pain. Respiratory: Positive for cough and shortness of breath. Cardiovascular: Negative for chest pain and leg swelling. Gastrointestinal: Positive for abdominal pain, diarrhea, nausea and vomiting. Genitourinary: Negative for difficulty urinating and vaginal bleeding. Musculoskeletal: Negative for myalgias. Skin: Negative for rash. Neurological: Negative for dizziness and headaches. Psychiatric/Behavioral: Negative for behavioral problems. Physical Exam ED Triage Vitals [05/28/19 0916] Temp Pulse Resp BP SpO2 36.9 ??C (98.4 ??F) 93 16 137/94 100 % Temp src Heart Rate Source Patient Position BP Location FiO2 (%) -- -- -- -- -- Labs Reviewed CBC WITH AUTO DIFFERENTIAL - Abnormal Result Value WBC 5.4 Hgb 10.8 (*) Hct 33.7 (*) Plt 249 MPV 9.0 (*) RBC 3.74 (*) MCV 90.1 MCH 28.9 MCHC 32.0 (*) RDW CV 14.7 RDW SD 48.1 NRBC abs 0.00 COMPREHENSIVE METABOLIC PANEL - Abnormal Sodium 138 Potassium, pl 3.6 Chloride 102 CO2 25 Anion gap 11 BUN 7 (*) Creatinine 0.63 Glucose 101 Calcium 9.4 Bilirubin, total 0.3 Protein, pl 6.8 Albumin 4.0 Alk phos 39 (*) ALT 17 AST 17 HCG, BLOOD, QUANTITATIVE - Abnormal hCG, quant 44.0 (*) DIFFERENTIAL AUTO - Abnormal Neutrophil abs 4.5 Imm gran abs 0.0 Lymphocyte abs 0.6 (*) Monocyte abs 0.3 Eosinophil abs 0.0 Basophil abs 0.0 Neutrophil pct 83.3 Imm gran pct 0.2 Lymphocyte pct 11.1 Monocyte pct 4.8 Eosinophil pct 0.4 Basophil pct 0.2 STREPTOCOCCUS GROUP A PCR Strep A PCR Not Detected LIPASE Lipase 26 EGFR GFR 123 XR Chest 1 View Final Result BP 121/91 Pulse 83 Temp 36.9 ??C (98.4 ??F) Resp 16 Ht 160 cm (5' 3 ) Wt 72.6 kg (160 lb) LMP 04/14/2019 SpO2 100% BMI 28.34 kg/m?? Procedures Physical Exam Vitals signs and nursing note reviewed. Constitutional: General: She is not in acute distress. Appearance: She is well-developed. She is not diaphoretic. HENT: Head: Normocephalic and atraumatic. Mouth/Throat: Pharynx: Posterior oropharyngeal erythema present. No oropharyngeal exudate. Eyes: Conjunctiva/sclera: Conjunctivae normal. Pupils: Pupils are equal, round, and reactive to light. Neck: Musculoskeletal: Normal range of motion and neck supple. Thyroid: No thyromegaly. Vascular: No JVD. Trachea: No tracheal deviation. Cardiovascular: Rate and Rhythm: Normal rate and regular rhythm. Heart sounds: Normal heart sounds. Comments: Patient is not orthostatic. Pulmonary: Effort: Pulmonary effort is normal. No respiratory distress. Breath sounds: Normal breath sounds. No stridor. No wheezing or rales. Abdominal: General: Bowel sounds are normal. There is no distension. Palpations: Abdomen is soft. There is no mass. Tenderness: There is abdominal tenderness in the epigastric area. There is no guarding or rebound. Musculoskeletal: Normal range of motion. General: No tenderness or deformity. Lymphadenopathy: Cervical: No cervical adenopathy. Skin: General: Skin is warm and dry. Capillary Refill: Capillary refill takes less than 2 seconds. Coloration: Skin is not pale. Findings: No erythema or rash. Neurological: Mental Status: She is alert and oriented to person, place, and time. Cranial Nerves: No cranial nerve deficit. Sensory: No sensory deficit. Motor: No abnormal muscle tone. Coordination: Coordination normal. Psychiatric: Behavior: Behavior normal. Thought Content: Thought content normal. MDM MDM:Patient presents with multiple symptoms. Had recent negative Covid-19 testing. Summarize history: CXR is negative. Sats are 100%. Covid-19 very unlikely. Recommend penitentiary in place. I prescribed zofran and lomitil for viral syndrome. HCG shows miscarriage. Hg. Is a little lower. Final diagnoses: Viral syndrome ATTESTATION STATEMENT I, Rocio Yue, scribed for Esau Perry in the doctor's presence. I electronically signed this note 12:35 PM on 05/28/2019. I, Dr. Perry, have personally performed the services described in the documentation , reviewed thedocumentation, as recorded by the scribe in my presence, and it accurately and completely records my words and actions. Esau Perry MD 05/28/19 1033 Esau Perry MD 05/28/19 1235 * Tran Denney RN - 05/28/2019 9:11 AM CDT Pt c/o cough, chest pain with breathing, sore throat, diarrhea. Pt was admitted was tested for COVID-19 on May 23. Test was negative but pt states that her symptoms are getting worse. documented in this encounter Plan of Treatment Not on file documented as of this encounter Procedures Procedure Name Priority Date/Time Associated Diagnosis Comments XR CHEST 1 VIEW ED 05/28/2019 9:45 AM CDT EGFR STAT 05/28/2019 9:33 AM CDT DIFFERENTIAL AUTO STAT 05/28/2019 9:3 3 AM CDT CBC WITH AUTO DIFFERENTIAL STAT 05/28/2019 9:33 AM CDT HCG, BLOOD, QUANTITATIVE STAT 05/28/2019 9:33 AM CDT LIPASE STAT 05/28/2019 9:33 AM CDT COMPREHENSIVE METABOLIC PANEL STAT 05/28/2019 9:33 AM CDT STREPTOCOCCUS GROUP A PCR STAT 05/28/2019 9:21 AM CDT documented in this encounter Results * XR Chest 1 View (05/28/2019 9:45 AM CDT) Anatomical Region Laterality Modality Body, Chest N/A Computed Radiogr aphy 05/28/2019 9:36 AM CDT Narrative 05/28/2019 10:07 AM CDT [facility] ?Imaging Result Name: UMER RAUSCH Dianelys ? Ordering Phys: ESAU PERRY Age: 29 ?Date of : 1990 ? Accession Number: [id number] Date of Service: 05/28/2019 ??Gender: F EXAM DESCRIPTION: ??XR CHEST 1 VIEW REASON FOR STUDY: ??Worsening cough and diarrhea since last week. ??Nausea, vomiting, abdominal pain, shortness of breath, and sore throat. ??Ear pain. Recent COVID-19 testing was negative. TECHNIQUE: ??Frontal radiographic view of the chest acquired. COMPARISON: ??Chest radiograph from 05/24/2019. ?? LUNGS/PLEURA: There is no evidence of airspace consolidation, pleural effusion, or pneumothorax. HEART/MEDIASTINUM: The heart size is normal. The mediastinal and hilar contours are normal. HARDWARE/LINES/TUBES: None. BONES: There are no acute or aggressive appearing osseous abnormalities. ??No evidence of an acute cardiopulmonary abnormality. THIS IS AN ELECTRONICALLY VERIFIED FINAL REPORT 05/28/2019 10:00 AM - Electronically signed by Raji Kraus M.D. AB: D: ??05/28/2019 10:00 AM T: ??05/28/2019 10:00 AM Report ID: [id number] Reading Location: ??[id number] Procedure Note Raji Kraus MD - 05/28/2019 [facility] Imaging Result Name: UMER RAUSCH Ordering Phys: ESAU PERRY Age: 29 Date of : 1990 Accession Number: [id number] Date of Service: 05/28/2019 Gender: F EXAM DESCRIPTION: XR CHEST 1 VIEW REASON FOR STUDY: Worsening cough and diarrhea since last week.Nausea, vomiting, abdominal pain, shortness of breath, and sore throat. [place]. Recent COVID-19 testing was negative. TECHNIQUE: Frontal radiographic view of the chest acquired. COMPARISON: Chest radiograph from 05/24/2019. LUNGS/PLEURA: There is no evidence of airspace consolidation, pleural effusion, or pneumothorax. HEART/MEDIASTINUM: The heart size is normal. The mediastinal and hilar contours are normal. HARDWARE/LINES/TUBES: None. BONES: There are no acute or aggressive appearing osseous abnormalities. No evidence of an acute cardiopulmonary abnormality. THIS IS AN ELECTRONICALLY VERIFIED FINAL REPORT 05/28/2019 10:00 AM - Electronically signed by Raji Kraus M.D. AB: Report ID: [id number] Reading Location: [id number] us Esau Perry MD IMG XR PROCEDURES Final Resu lt * eGFR (05/28/2019 9:33 AM CDT) [facility] Signature eGFR 123 mL/min/1.7 3 m2 [facility] ([place]) Comment: Interpretive Data Reference Interval Normal ?>/= 90 mL/min/1.73m2 Mildly decreased* ? 60 - 89 mL/min/1.73m2 Mildly to moderately decreased ?45 - 59 mL/min/1.73m2 Moderately to severely decreased ??30 - 44 mL/min/1.73m2 Severely decreased ?15 - 29 mL/min/1.73m2 Kidney Failure ?< 15 ??mL/min/1.73m2 *Relative to young adult level If -[place] Islander multiply value by 1.16. Estimated glomerular filtration [...] was last reviewed 2015. Blood specimen (specimen) 05/28/2019 9:33 AM CDT 05/28/2019 9:36 AM CDT us Esau Perry MD LAB BLOOD ORDERABLES Final R esult [facility] ([place]) [address] [facility] Department [place] [address] * (ABNORMAL) Differential, auto (05/28/2019 9:33 AM CDT) Neutrophil abs 4.5 1.7 - 6.5 K/cumm [facility] ([place]) Imm gran abs 0.0 0.0 - 0.1 K/cumm [facility] ([place]) Lymphocyte abs 0.6(L) 0.8 - 3.3 K/cumm [facility] ([place]) Monocyte abs 0.3 0.2 - 0.8 K/cumm [facility] ([place]) Eosinophil abs 0.0 0.0 - 0.5 K/cumm [facility] ([place]) Basophil abs 0.0 0.0 - 0.1 K/cumm [facility] ([place]) Neutrophil pct 83.3 % [facility] ([place]) Comment: Interpretive [...] was last revised on 2017. Lymphocyte pct 11.1 % [facility] ([place]) Comment: Interpretive Data Percent cell count reference ranges are not reported, since discordance with absolute values may lead to misinterpretation of CBC data. Current Interpretive Data was last revised on 2017. Monocyte pct 4.8 % [facility] ([place]) Comment: Interpretive Data [...] last revised on 2017. Blood specimen (specimen) 05/28/2019 9:33 AM CDT 05/28/2019 9:36 AM CDT us Esau Perry MD LAB BLOOD ORDERABLES Final R esult [facility] ([place]) [address] [facility] Department [place] [address] * (ABNORMAL) hCG, blood, quantitative (05/28/2019 9:33 AM CDT) hCG, quant 44.0(H) 0.0 - 5.0 IUnits/L [facility] ([place]) Comment: Interpretive Data Non- Female premenopausal: < or = 5.0 IUnits/L Men: < 5.0 IUnits/L Weeks of Gestation ? Reference Interval ?? 3 to 6 ? 5.8-31,795 IUnits/L ?? 7 to 10 ? 3,697-186,977 IUnits/L ??12 to 15 ?27,832- 70,791 IUnits/L ??16 to 18 ? 9,040- 58,179 IUnits/L Current Interpretive Data was last revised on 2017. Blood specimen (specimen) 05/28/2019 9:33 AM CDT 05/28/2019 9:36 AM CDT Esau Perry MD LAB BLOOD ORDERABLES Final R esult Performing Organization Address [facility] Co de Phone Number [facility] ([place]) [address] [facility] [place] [address] * Lipase (05/28/2019 9:33 AM CDT) Lipase 26 10 - 99 Units/L [facility] ([place]) Blood specimen (specimen) 05/28/2019 9:33 AM CDT 05/28/2019 9:36 AM CDT Esau Perry MD LAB BLOOD ORDERABLES Final R esult Performing Organization Address City/[facility]/ZIP Co de Phone Number [facility] ([place]) [address] [facility] [place] [address] * (ABNORMAL) Comprehensive metabolic panel (05/28/2019 9:33 AM CDT) Pathologist [facility] Sodium 138 135 - 145 mmol/L [facility] ([place]) Potassium, pl 3.6 3.3 - 4.9 mmol/L [facility] ([place]) Chloride 102 97 - 110 mmol/L [facility] ([place]) CO2 25 22 - 32 mmol/L [facility] ([place]) Anion gap 11 2 - 15 mmol/L [facility] ([place]) BUN 7(L) 8 - 25 mg/dL [facility] ([place]) Creatinine 0.63 0.60 - 1.10 mg/dL [facility] ([place]) Glucose 101 70 - 199 mg/dL [facility] ([place]) [...] 4.0 3.5 - 5.0 g/dL [facility] ([place]) Alk phos 39(L) 40 - 130 Units/L [facility] ([place]) ALT 17 7 - 45 Units/L [facility] ([place]) AST 17 10 - 45 Units/L [facility] ([place]) Blood specimen (specimen) 05/28/2019 9:33 AM CDT 05/28/2019 9:36 AM CDT us Esau Perry MD LAB BLOOD ORDERABLES Final R esult [facility] ([place]) [address] [facility] Department [place] [address] * (ABNORMAL) CBC with auto differential (05/28/2019 9:33 AM CDT) Pathologist [facility] WBC 5.4 3.8 - 9.9 K/cumm [facility] ([place]) Hgb 10.8(L) 11.9 - 15.5 g/dL [facility] ([place]) Hct 33.7(L) 35.6 - 45.5 % [facility] ([place]) Plt 249 150 - 400 K/cumm [facility] ([place]) MPV 9.0(L) 9.1 - 12.3 fL [facility] RBC 3.74(L) 3.90 - 5.20 M/cumm [facility] MCV 90.1 81.3 - 96.4 fL [facility] ([place] MCH 28.9 27.1 - 33.3 pg [facility] MCHC 32.0(L) 32.3 - 35.7 g/dL [facility] ([place] RDW CV 14.7 11.1 - 14.9 % [facility] ([place]) RDW SD 48.1 35.7 - 48.1 fL [facility] NRBC abs 0.00 0.00 - 0.01 K/cumm [facility] Blood specimen (specimen) 05/28/2019 9:33 AM CDT 05/28/2019 9:36 AM CDT Esau Perry MD LAB BLOOD ORDERABLES Final R esult [facility] ([place]) [address] [facility] Department [place] [address] * Streptococcus Group A PCR (05/28/2019 9:21 AM CDT) Pathologist [facility] Strep A DNA Not Detected Not Detected [facility] ([place]) Comment: This test is performed using the [employer] Xpert Group A Streptococcal Assay. This is [...] been verified by the performing laboratory. Throat 05/28/2019 9:21 AM CDT 05/28/2019 9:23 AM CDT Esau Perry MD LAB MICROBIOLOGY - GENERAL O RDERABLES Final Result [facility] [place]) [address] [facility] Department [place] [address] documented in this encounter Visit Diagnoses Diagnosis Viral syndrome- Primary Unspecified viral infection, in conditions classified elsewhere and of unspecified site documented in this encounter Administered Medications Inactive Administered Medications - up to 3 most recent administrations Medication Order MAR Action Action Date Dose Rate Site diphenoxylate-atropine (LOMOTIL) 2.5-0.025 mg per tablet 2 tablet 2 tablet, oral, Once, On Sun05/28/19 at 09, For 1 dose, Indications: diarrheaIndications:diarrhea Given 05/28/2019 9:23 AM CDT 2 tablets ondansetron ODT (ZOFRAN-ODT) disintegrating tablet 4 mg 4 mg, oral, Once, On Sun05/28/19 at 0919, For 1 dose Given 05/28/2019 9:23 AM CDT 4 mg documented in this encounter Active and Recently Administered Medications Times are shown in CDT. Scheduled Medication Order 05/26/2019 05/27/2019 05/28/2019 diphenoxylate-atropine (LOMOTIL) 2.5-0.025 mg per tablet 2 tablet (COMPLETED) 2 tablet, oral, Once, On Sun05/28/19 at 0919, For 1 dose, Indications: diarrhea 922 (Given - Provid er: Tran Denney RN) ondansetron ODT (ZOFRAN-ODT) disintegrating tablet 4 mg (COMPLETED) 4 mg, oral, Once, On Sun05/28/19 at 0919, For 1 dose 0923 (Given - Provid er: Tran Denney, PRO) documented in this encounter Care Teams Revenue Inspector Relationship Specialty Start [place] [address] [address] [address] PCP - General 11/16/18 06/24/19 [place] [address] [address] [address] 11/16/18 documented as of this encounter
--- OUTSIDE RECORDS SUMMARY | 2024-02-24 20:16 | XMS_ITS | Encounter Summary ---
Author Organization [facility] Address [address] [place] [address] Care Team Providers Care Testing Engineer Name Role Phone Huseyin Dangelo MD Primary Care Provider [phone] Huseyin Dangelo MD Unavailable [phone] Encounter Details Date Type Department Care Team (Late st Contact Info) Description 12/27/2018 Telephone [facility] Hand Surgery [address] [place] [address] Chino Zaldivar MD [address] [place] [address] [address] Social History Tobacco Use Types [...] encounter Miscellaneous Notes * Telephone Encounter - Aida Gupta - 01/31/2019 11:54 AM CST error X SYSTEMS ANALYST documented in this encounter Plan of Treatment Not on file documented as of this encounter Visit Diagnoses Not on filedocumented in this encounter Care Teams Testing Engineer Relationship Specialty Start [place] [address] [address] [facility] [address] [place] [address] PCP - General 11/16/18 06/24/19 [place] [address] [address] [facility] [address] [place] [address] 11/16/18 documented as of this encounter
--- OUTSIDE RECORDS SUMMARY | 2024-02-24 20:16 | XMS_ITS | Encounter Summary ---
Author Organization [facility] Address [address] [place] [address] Care Team Providers Care Supervisor Photoengraving Name Role Phone Huseyin Dangelo MD Primary Care Provider [phone] Huseyin Dangelo MD Unavailable [phone] Encounter Details Date Type Department Care Team (Late st Contact Info) Description 01/03/2019 Telephone [facility] Medical [facility] Hand Surgery [address] [facility] [address] [place] [address] Chino Zaldivar MD [address] [place] [address] [address] Social History Tobacco Use Types [...] Telephone Encounter - Rachna Vogel MA - 01/03/2019 2:54 PM CST Pt notified rec'd paperwork, will have TLB sign and fax in on Sunday. S DEVELOPER * Telephone Encounter - Cassandra Francisco - 01/03/2019 1:01 PM CST Patient called to update MA she will be faxing medical paperwork today. S DEVELOPER documented in this encounter Plan of Treatment Not on file documented as of this encounter Visit Diagnoses Not on filedocumented in this encounter Care Teams Supervisor Photoengraving Relationship Specialty Start [place] [address] [address] [address] PCP - General 11/16/18 06/24/19 [place] [address] [address] [address] 11/16/18 documented as of this encounter
--- OUTSIDE RECORDS SUMMARY | 2024-02-24 20:16 | XMS_ITS | Encounter Summary ---
Author Organization [facility] Care Team Providers Care Terrazzo Installer Name Role Phone Huseyin Dangelo MD Primary Care Provider [phone] Huseyin Dangelo MD Unavailable [phone] Encounter Details Date Type Department Care Team (Latest Contact Info) Description 01/08/2019 Travel Social History Tobacco Use Types Packs/Day [...] on filedocumented in this encounter Care Teams Terrazzo Installer Relationship Specialty Start [place] [address] [address] [place] [id number] PCP - General 11/16/18 06/24/19 [place] [address] [address] [place] [address] 11/16/18 documented as of this encounter
--- OUTSIDE RECORDS SUMMARY | 2024-02-24 20:16 | XMS_ITS | Encounter Summary ---
Author Organization [facility] Healthcare Address [address] [place] [address] Care Team Providers Care Tube Machine Operator Helper Name Role Phone Huesyin Dangelo MD Primary Care Provider [phone] Huseyin Dangelo MD Unavailable [phone] Reason for Visit * Reason Comments Generalized Body Aches Encounter Details Date Type Department Care Team (Late st Contact Info) Description 03/18/2019 10:41 AM BUSHEL GIRL - 03/18/2019 1:21 PM BUSHEL GIRL Emergency [facility] Emergency Department [address] [place] [address] Lupus (CMS/HCC) (Primary Dx); New onset seizure (CMS/HCC); Generalized body aches; Musculoskeletal back pain Discharge Disposition: Discharge to home or [...] Sign Reading Time Taken Comments Blood Pressure 111/77 03/18/2019 12:00 PM BUSHEL GIRL Pulse 72 03/18/2019 12:00 PM BUSHEL GIRL Temperature 36 ??C (96.8 ??F) 03/18/2019 10:35 AM BUSHEL GIRL Respiratory Rate 17 03/18/2019 12:00 PM BUSHEL GIRL Oxygen Saturation 100% 03/18/2019 12:00 PM BUSHEL GIRL Inhaled Oxygen Concentration - - Weight 68 kg (150 lb) 03/18/2019 10:35 AM BUSHEL GIRL Height 157.5 cm (5' 2 ) 03/18/2019 10:35 AM BUSHEL GIRL Body Mass Index 27.44 03/18/2019 10:35 AM BUSHEL GIRL documented in this encounter Discharge Diagnoses Diagnosis Systemic lupus erythematosus, unspecified (HCC) - SYSTEMIC LUPUS ERYTHEMATOSUS, UNSPECIFIED Unspecified convulsions (HCC) - UNSPECIFIED CONVULSIONS Dorsalgia, unspecified - DORSALGIA, UNSPECIFIED Anemia, unspecified - ANEMIA, UNSPECIFIED Chronic kidney disease, unspecified - CHRONIC KIDNEY DISEASE, UNSPECIFIED Major depressive disorder, single episode, unspecified - MAJOR DEPRESSIVE DISORDER, SINGLE EPISODE, UNSPECIFIED Fibromyalgia - FIBROMYALGIA Unspecified myalgia and myositis Rheumatoid arthritis, unspecified (HCC) - RHEUMATOID ARTHRITIS, UNSPECIFIED 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 Follow up with your document advisor without fail Follow up with a neurologist at [facility] without fail. EL GIRL * Attachments The following attachments cannot be sent through Care Everywhere. * Acute Low Back Pain (AfterCare(R) Instructions(ER/ED)) (Togolese) * Seizure, New Onset, Unknown Cause (Adult) (Togolese) * Lupus (Systemic Lupus Erythematosus) (Togolese) * Musculoskeletal Pain (References) (Togolese) documented in this encounter Medications at Time [...] documented in this encounter ED Notes * Helen Torres NP - 03/18/2019 11:14 AM CST HPI Chief Complaint Patient presents with ??? Generalized Body Aches 28 y.o. year old female with PMHX Past Medical History: Anemia Chronic kidney disease Depression Fibromyalgia Lupus (CMS/HCC) 07/13/2015: Rheumatoid arthritis ([facility]); accompanied by family presents to ED with c/o Generalized Body Aches, fatigue, dizziness, seizure Denies fever, chills, nausea, vomiting, diarrhea, SOB, CP, numbness, tingling. Pt states symptoms started a few days ago. Pt denies history of seizures. Pt significant other witnessed a seizure lasting 15 minutes. Pt states she feels seizure coming on, due to her eye twitching.Pt started a new medication a few weeks ago for lupus. Pt states she is in a lupus flair. Pt has not taken OTC medication for relief of pain. Pt has pain to lower back. Denies urinary urgency, frequency or burning. No other complaints at this time. Patient History Patient [...] Systems Constitutional: Positive for fatigue. Negative for chills and fever. Generalized body aches HENT: Negative. Negative for ear pain and sore throat. Eyes: Negative. Negative for pain and visual disturbance. Respiratory: Negative. Negative for cough and shortness of breath. Cardiovascular: Negative. Negative for chest pain and palpitations. Gastrointestinal: Negative. Negative for abdominal pain and vomiting. Genitourinary: Negative. Negative for dysuria and hematuria. Musculoskeletal: Negative. Negative for arthralgias and back pain. Skin: Negative. Negative for color change and rash. Neurological: Positive for seizures. Negative for syncope. Psychiatric/Behavioral: Negative. All other systems reviewed and are negative. Physical Exam ED Triage Vitals [03/18/19 1035] Temp Pulse Resp BP SpO2 36 ??C (96.8 ??F) 80 16 127/90 98 % Temp src Heart Rate Source Patient Position BP Location FiO2 (%) Temporal -- -- -- -- Physical Exam Vitals signs and nursing note reviewed. Constitutional: General: She is awake. She is not in acute distress. Appearance: Normal appearance. She is well-developed. She is not ill-appearing, toxic-appearing or diaphoretic. HENT: Head: Normocephalic and atraumatic. Right Ear: Hearing, tympanic membrane, ear canal and external ear normal. Left Ear: Hearing, tympanic membrane, ear canal and external ear normal. Nose: Nose normal. Right Sinus: No maxillary sinus tenderness or frontal sinus tenderness. Left Sinus: No maxillary sinus tenderness or frontal sinus tenderness. Mouth/Throat: Lips: [place]. Mouth: Mucous membranes are moist. Pharynx: Oropharynx is clear. Uvula midline. No pharyngeal swelling, oropharyngeal exudate, posterior oropharyngeal erythema or uvula swelling. Tonsils: No tonsillar exudate or tonsillar abscesses. Swellin+ on the right. 1+ on the left. Eyes: General: Lids are normal. Conjunctiva/sclera: Conjunctivae normal. Neck: Musculoskeletal: Full passive range of motion without pain, normal range of motion and neck supple. Trachea: Trachea and phonation normal. Cardiovascular: Rate and Rhythm: Normal rate and regular rhythm. Chest Wall: PMI is not displaced. No thrill. Pulses: Normal pulses. No decreased pulses. Heart sounds: Normal heart sounds. No murmur. Pulmonary: Effort: Pulmonary effort is normal. No respiratory distress. Breath sounds: Normal breath sounds and air entry. No stridor, decreased air movement or transmitted upper airway sounds. No decreased breath sounds, wheezing, rhonchi or rales. Abdominal: General: Bowel sounds are normal. There is no distension or abdominal bruit. There are no signs of injury. Palpations: Abdomen is soft. Tenderness: There is no tenderness. There is no guarding. Lymphadenopathy: Cervical: No cervical adenopathy. Skin: General: Skin is warm and dry. Capillary Refill: Capillary refill takes less than 2 seconds. Neurological: General: No focal deficit present. Mental Status: She is alert, oriented to person, place, and time and easily aroused. GCS: GCS eye subscore is 4. GCS verbal subscore is 5. GCS motor subscore is 6. Cranial Nerves: Cranial nerves are intact. Sensory: Sensation is intact. Motor: Motor function is intact. Coordination: Coordination is intact. Gait: Gait is intact. Deep Tendon Reflexes: Reflexes are normal and symmetric. Psychiatric: Attention and Perception: Attention normal. Mood and Affect: Mood normal. Speech: Speech normal. Behavior: Behavior normal. Behavior is cooperative. Thought Content: Thought content normal. Cognition and Memory: Cognition normal. Judgment: Judgment normal. [facility] ED Course as of Mar 18 1755 Time: 03/18 1259 Comment: Pt is refusing pain medication. Pt states no relief of pain after IV fluids. Discussed lab work and radiology results with patient. Advised to use Tylenol and Motrin for reliefof fever and pain, to follow up with PMD and Neurologist for further evaluation and treatment. Pt verbalized understanding. All questions answered at this time. Pt states she has been tapering prednisone and symptoms become worse when on 10 mg prednisone daily. By: Helen Torres NP Lupus (CMS/HCC) New onset seizure (CMS/HCC) Generalized body aches Musculoskeletal back pain Helen Torres NP 03/18/19 9635 Cosigned by Chino Paul MD at 03/18/2019 7:56 PM BUSHEL GIRL EL GIRL EL GIRL Associated attestation - Chino Paul MD - 03/18/2019 7:56 PM BUSHEL GIRL ED Attestation Based on the medical record the care appears appropriate. * Rachel Metzger RN - 03/18/2019 10:36 AM CST Pt C/O generalized body achesX 2 weeks. Pt vitals stable. EL GIRL documented in this encounter Plan of Treatment Not on file documented as of this encounter Procedures Procedure Name Priority Date/Time Associated Diagnosis Comments XR CHEST PA LATERAL 2 VIEWS ED 03/18/2019 12:10 PM BUSHEL GIRL INFLUENZA A/B AND RSV PCR STAT 03/18/2019 11:52 AM [facility] GIRL EGFR STAT 03/18/2019 11:52 AM [facility] GIRL DIFFERENTIAL AUTO STAT 03/18/2019 11: 52 AM BUSHEL GIRL CBC WITH AUTO DIFFERENTIAL STAT 03/18/2019 11:52 AM [facility] GIRL ERYTHROCYTE SEDIMENTATION RATE Add-On 03/18/2019 11:52 AM BUSHEL GIRL CRP (ACUTE PHASE) Add-On 03/18/2019 11: 52 AM [facility]HEL GIRL COMPREHENSIVE METABOLIC PANEL STAT 03/18/2019 11:52 AM BUSHEL GIRL ECG 12-LEAD STAT 03/18/2019 11:35 AM BUSHEL GIRL URINALYSIS AND REFLEX TO MICROSCOPIC AND CULTURE STAT 03/18/2019 11:[address] HEAD WO CONTRAST ED 03/18/2019 1 1:27 AM BUSHEL GIRL documented in this encounter Results * XR Chest Pa Lateral 2 Vw (03/18/2019 12:10 PM BUSHEL GIRL) Anatomical Region Laterality Modality Body, Chest N/A Computed Radiogr aphy 03/18/2019 12:2 2 PM BUSHEL GIRL Impressions 03/18/2019 12:22 PM BUSHEL GIRL No acute cardiopulmonary findings. Electronically signed by: Huseyin Lockwood M.D. Narrative 03/18/2019 12:22 PM BUSHEL GIRL EXAMINATION: XR CHEST PA LATERAL 2 VIEWS. ?? TECHNIQUE: PA and lateral chest radiographs were obtained HISTORY: Dizziness and weakness today COMPARISON: 01/27/2019 FINDINGS: Lungs are clear. ??No pleural effusion or pneumothorax. ??Heart size is normal. Procedure Note Huseyin Lockwood MD - 03/18/2019 EXAMINATION: XR CHEST PA LATERAL 2 VIEWS. TECHNIQUE: PA and lateral chest radiographs were obtained HISTORY: Dizziness and weakness today COMPARISON: 01/27/2019 FINDINGS: Lungs are clear. No pleural effusion or pneumothorax. Heart size is normal. IMPRESSION: No acute cardiopulmonary findings. Electronically signed by: Huseyin Lockwood M.D. Helen Torres NP IMG XR PROCEDURES Final Res ult * CRP (acute phase) (03/18/2019 11:52 AM BUSHEL GIRL) CRP 5.0 <=10.0 mg/L [facility] ([place]) Blood specimen (specimen) 03/18/2019 11:52 AM BUSHEL GIRL 03/18/2019 12:44 PM [facility] GIRL Helen Torres NP LAB BLOOD ORDERABLES Final Result [facility] 1 [facility] [place] [address] * (ABNORMAL) Erythrocyte sedimentation rate (03/18/2019 11:52 AM BUSHEL GIRL) Erythrocyte sedimentation rate 28(H) 1 - 20 mm/hr [facility] Blood specimen (specimen) 03/18/2019 11:52 AM [facility] GIRL 03/18/2019 12:44 PM [facility] GIRL Helen Torres ELECTRONIC DEVICE REPAIRER LAB BLOOD ORDERABLES Final Result [facility] [address] [facility] [place] [address] * eGFR (03/18/2019 11:52 AM BUSHEL GIRL) eGFR 132 mL/min/1.7 3 m2 [facility] Comment: Interpretive Data Reference Interval Normal ?>/= 90 mL/min/1.73m2 Mildly decreased* ? 60 - 89 mL/min/1.73m2 Mildly to moderately decreased ?45 - 59 mL/min/1.73m2 Moderately to severely decreased ??30 - 44 mL/min/1.73m2 Severely decreased ?15 - 29 mL/min/1.73m2 Kidney Failure ?< 15 ??mL/min/1.73m2 *Relative to young adult level If -Grenadian multiply value by 1.16. Estimated glomerular filtration [...] was last reviewed 2015. Blood specimen (specimen) 03/18/2019 11:52 AM BUSHEL GIRL 03/18/2019 11:58 AM [facility] GIRL Helen Torres NP LAB BLOOD ORDERABLES Final Result [facility] ([place]) [address] [facility] [place] [address] * (ABNORMAL) Differential, auto (03/18/2019 11:52 AM BUSHEL GIRL) Neutrophil abs 5.4 1.7 - 6.5 K/cumm [facility] ([place]) [...] revised on 2017. Lymphocyte pct 8.3 % [facility] ([place]) Comment: Interpretive [...] revised on 2017. Eosinophil pct 0.2 % [facility] ([place]) Comment: Interpretive Data Percent cell count reference ranges are not reported, since discordance with absolute values may lead to misinterpretation of CBC data. Current Interpretive Data was last revised on 2017. Basophil pct 0.2 % [facility] ([place] Comment: Interpretive Data Percent cell count reference ranges are not reported, since discordance with absolute values may lead to misinterpretation of CBC data. Current Interpretive Data was last revised on 2017. Blood specimen (specimen) 03/18/2019 11:52 AM BUSHEL GIRL 03/18/2019 11:58 AM [facility] GIRL Helen Torres ELECTRONIC DEVICE REPAIRER LAB BLOOD ORDERABLES Final Result Performing Organization Address City/[facility]/ZIP Co de Phone Number [facility] [address] [facility] [place] [address] * Influenza A/B and RSV PCR Nasopharyngeal (03/18/2019 11:52 AM BUSHEL GIRL) Influenza A RNA Not Detected Not Detected [facility] ([place]) Influenza B RNA Not Detected Not Detected [facility] ([place]) RSV RNA Not Detected Not Detected [facility] Nasopharyngeal 03/18/2019 11 :52 AM [facility] GIRL 03/18/2019 11:58 AM [facility] GIRL Narrative [facility] - 03/18/2019 12:31 PM BUSHEL GIRL This test is performed using the [employer] Xpert Flu/RSV Assay. This is a multiplex, real-time reverse transcriptase PCR assay that detects influenza A, influenza B, and respiratory syncytial virus RNA. This assay has been cleared by the [place] Food and Drug Administration, and its performance characteristics have been verified by the [facility]. ??This test is performed using the [employer] Xpert Flu/RSV Assay. This is a multiplex, real-time reverse transcriptase PCR assay that detects influenza A, influenza B, and respiratory syncytial virus RNA. This assay has been cleared by the [place] Food and Drug Administration, and its performance characteristics have been verified by the [facility]. Helen Torres NP LAB MICROBIOLOGY - GENERAL ORDERABLES Final Result [facility] ([place]) [address] [facility] [place] [address] * (ABNORMAL) CBC with auto differential (03/18/2019 11:52 AM BUSHEL GIRL) WBC 6.4 3.8 - 9.9 K/cumm [facility] ([place]) Hgb 11.1(L) 11.9 - 15.5 g/dL [facility] ([place]) Hct 34.1(L) 35.6 - 45.5 % [facility] ([place]) Plt 291 150 - 400 K/cumm [facility] ([place]) MPV 10.0 9.1 - 12.3 fL [facility] ([place]) RBC 3.77(L) 3.90 - 5.20 M/cumm [facility] ([place]) MCV 90.5 81.3 - 96.4 fL [facility] ([place]) MCH 29.4 27.1 - 33.3 pg [facility] ([place]) MCHC 32.6 32.3 - 35.7 g/dL [facility] ([place]) RDW CV 14.6 11.1 - 14.9 % [facility] ([place]) RDW SD 47.8 35.7 - 48.1 fL [facility] ([place]) NRBC abs 0.00 0.00 - 0.01 K/cumm [facility] ([place]) Blood specimen (specimen) 03/18/2019 11:52 AM [facility] GIRL 03/18/2019 11:58 AM [facility] GIRL Helen Torres NP LAB BLOOD ORDERABLES Final Result [facility] 1 [facility] Department [place] [address] * (ABNORMAL) Comprehensive metabolic panel (03/18/2019 11:52 AM BUSHEL GIRL) Pathologist [facility] Sodium 139 135 - 145 mmol/L [facility] ([place]) Potassium, pl 4.0 3.3 - 4.9 mmol/L [facility] ([place]) Chloride 102 97 - 110 mmol/L [facility] ([place]) CO2 26 22 - 32 mmol/L [facility] ([place]) Anion gap 11 2 - 15 mmol/L [facility] ([place]) BUN 14 8 - 25 mg/dL [facility] ([place]) Creatinine 0.52(L) 0.60 - 1.10 mg/dL [facility] ([place]) Glucose 103 70 - 199 mg/dL [facility] ([place] [...] - 8.5 g/dL [facility] ([place]) Albumin 4.2 3.5 - 5.0 g/dL [facility] ([place]) Alk phos 46 40 - 130 Units/L [facility] ([place]) ALT 23 7 - 45 Units/L [facility] ([place]) AST 24 10 - 45 Units/L [facility] ([place]) Blood specimen (specimen) 03/18/2019 11:52 AM [facility] GIRL 03/18/2019 11:58 AM [facility] GIRL us Helen Torres NP LAB BLOOD ORDERABLES Final Result [facility] ([place]) 1 [facility] Department of Laboratories [place], [place] [id number] * ECG 12 lead (03/18/2019 11:35 AM BUSHEL GIRL) 03/18/2019 11:3 5 AM [facility] GIRL Narrative [facility] - 03/18/2019 12:16 PM BUSHEL GIRL Vent Rate: 81 bpm RR Interval: 736 msec DE Interval: 126 msec QRS Duration: 82 msec QT Interval: 356 msec QTC Interval: 393 msec P-R-T [place]: 25 - 25 - 5 degrees SINUS RHYTHM WITH SINUS ARRHYTHMIA NORMAL ECG Electronically Signed By: Cirilo Adame MD Helen Torres NP ECG ORDERABLES Final Resul t [facility] * Urinalysis reflex to microscopic and culture Urine, clean voided (03/18/2019 11:33 AM BUSHEL GIRL) Color, ur Yellow Yellow [facility] ([place]) [...] Negative Negative [facility] ([place]) Urobilinogen, ur 0.2 mg/dL [facility] ([place]) Nitrite, ur Negative Negative [facility] ([place]) Leukocyte esterase, ur Negative Negative [facility] ([place]) UA reflex comment Reflex conditions for microscopic UA and culture not met. [facility] ([place]) Urine, clean voided 03/18/2019 11:33 AM [facility] GIRL 03/18/2019 11:35 AM [facility] GIRL Narrative [facility] ([place]) - 03/18/2019 11:47 AM BUSHEL GIRL ?? Urine pH is affected by diet, medications, systemic acid-base disturbances, and renal tubular function. ??pH may affect urinary stone formation. ??For example, urine pH below 6.0 may help reduce the tendency for calcium phosphate stones and pH greater than 6.0 may reduce the tendency for uric acid stone formation. Source: Qlue. Last revised 03-08-2017 Helen Torres NP LAB MICROBIOLOGY - GENERAL ORDERABLES Final Result [facility] ([place]) 1 [facility] [place] [address] * CT Head WO Contrast (03/18/2019 11:27 AM BUSHEL GIRL) Anatomical Region Laterality Modality Head and Neck N/A Computed Tomogra phy 03/18/2019 12:3 2 PM [facility] GIRL Impressions 03/18/2019 12:35 PM BUSHEL GIRL No abnormality is visualized. ??Given the reported new onset of seizure activity over the past few months, a baseline brain MRI could be obtained on a nonemergent basis if clinically indicated. Electronically signed by: Easton Sultana M.D. Narrative 03/18/2019 12:35 PM [facility] GIRL EXAMINATION: ??CT HEAD WO CONTRAST ORDERING HEALTHCARE PROVIDER: HELEN TORRES HISTORY: New onset of seizures over the past few months. TECHNIQUE: Axial images acquired through the brain without intravenous contrast. ??Images stored on PACS. ??Automated exposure control was used as a dose optimization technique for this examination. COMPARISON: No prior available FINDINGS: BRAIN: No intracranial hemorrhage or loss of tejeda-white matter differentiation. ??No mass effect. Normal white matter. EXTRA-AXIAL SPACES: No fluid collections. ??No masses. CALVARIUM: There is no calvarial fracture. SINUSES/MASTOIDS: The mastoid air cells and the visualized paranasal sinuses appear normal. OTHER: No other significant abnormality. Procedure Note Easton Sultana MD - 03/18/2019 EXAMINATION: CT HEAD WO CONTRAST ORDERING HEALTHCARE PROVIDER: HELEN TORRES HISTORY: New onset of seizures over the past few months. TECHNIQUE: Axial images acquired through the brain without intravenous contrast. Images stored on PACS. Automated exposure control was used as a dose optimization technique for this examination. COMPARISON: No prior available FINDINGS: BRAIN: No intracranial hemorrhage or loss of tejeda-white matter differentiation. No mass effect. Normal white matter. EXTRA-AXIAL SPACES: No fluid collections. No masses. CALVARIUM: There is no calvarial fracture. SINUSES/MASTOIDS: The mastoid air cells and the visualized paranasal sinuses appear normal. OTHER: No other significant abnormality. IMPRESSION: No abnormality is visualized. Given the reported new onset of seizure activity over the past few months, a baseline brain MRI could be obtained on a nonemergent basis if clinically indicated. Electronically signed by: Easton Sultana M.D. Helen Saab Brian DONATO IMG CT PROCEDURES Final Res ult documented in this encounter Visit Diagnoses Diagnosis Lupus- Primary Systemic lupus erythematosus New onset seizure (HCC) Generalized body aches Musculoskeletal back pain documented in this encounter Administered Medications Inactive Administered Medications - up to 3 most recent administrations Medication Order MAR Action Action Date Dose Rate Site sodium chloride 0.9% bolus 1,000 mL 1,000 mL, intravenous, at 1,000 mL/hr, Administer over 1 Hours, Once, On Sun03/18/19 at 1114, For 1 dose New Bag 03/18/2019 11:53 AM BUSHEL GIRL 1,000 mL 1000 mL/hr documented in this encounter Active and Recently Administered Medications Times are shown in BUSHEL GIRL. Scheduled Medication Order 03/16/2019 03/17/2019 03/18/2019 HYDROcodone-acetaminophen (NORCO) 5-325 mg per tablet 1 tablet 1 tablet, oral, Once, On Sun03/18/19 at 1242, For 1 dose, Indications: Pain 1241 (Not Given - Pr ovider: Carito Venegas RN - Reason: Patient/family refused) sodium chloride 0.9% bolus 1,000 mL (COMPLETED) 1,000 mL, intravenous, at 1,000 mL/hr, Administer over 1 Hours, Once, On Sun03/18/19 at 1114, For 1 dose 1153 (New Bag - Prov ider: Amy Higgins RN)1253 (Stopped - Provider: Carito Venegas, PRO) documented in this encounter Orders Medications Ordered That Omer ht Not Have Been Administered Count Last Ordered Date First Ordered Date HYDROcodone-acetaminophen (N ORCO) 5-325 mg per tablet 1 tablet 1 03/18/2019 ketorolac (TORADOL) injection 30 mg 1 03/18 sodium chloride 0.9% bolus 1,000 mL 1 03/18 Nursing Count Last Ordered Date First Orde red Date CARDIORESPIRATORY MONITOR 1 03/18/2019 IV Count Last Ordered Date First Orde red Date SALINE LOCK IV 03/18/2019 documented in this encounter Care Teams Tube Machine Operator Helper Relationship Specialty Start [place] [id number] [address] [place] [address] PCP - General 11/16/18 06/24/19 [place] [id number] [address] [place] [address] 11/16/18 documented as of this encounter
--- OUTSIDE RECORDS SUMMARY | 2024-02-24 20:16 | XMS_ITS | Encounter Summary ---
Author Organization [facility] Healthcare Address [address] [place] [address] Care Team Providers Care Early Childhood Aide Classroom Name Role Phone Huseyin Dangelo MD Primary Care Provider [phone] Huseyin Dangelo MD Unavailable [phone] Reason for Visit * Reason Comments Vomiting Diarrhea Encounter Details Date Type Department Care Team (Late st Contact Info) Description 06/06/2019 6:56 AM CDT - 06/06/2019 8:35 AM CDT Emergency [facility] Emergency Department [address] [place] [address] Harry Santos MD [address] [place] [id number] Vomiting and diarrhea (Primary Dx) Discharge Disposition: Discharge to [...] Sign Reading Time Taken Comments Blood Pressure 148/97 06/06/2019 7:06 AM CDT Pulse 100 06/06/2019 7:03 AM CDT Temperature 36.7 ??C (98 ??F) 06/06/2019 7:03 AM CDT Respiratory Rate 15 06/06/2019 7:03 AM CDT Oxygen Saturation 100% 06/06/2019 7:03 AM CDT Inhaled Oxygen Concentration - - Weight - - Height - - Body Mass Index - - documented in this encounter Discharge Diagnoses Diagnosis Vomiting, unspecified - VOMITING, UNSPECIFIED Diarrhea, unspecified - DIARRHEA, UNSPECIFIED Systemic lupus erythematosus, unspecified (HCC) - SYSTEMIC LUPUS ERYTHEMATOSUS, UNSPECIFIED Fibromyalgia - FIBROMYALGIA Unspecified myalgia and myositis Rheumatoid arthritis, unspecified (HCC) - RHEUMATOID ARTHRITIS, UNSPECIFIED Chronic kidney disease, unspecified - CHRONIC KIDNEY DISEASE, UNSPECIFIED Major depressive disorder, single episode, unspecified - MAJOR DEPRESSIVE DISORDER, SINGLE EPISODE, UNSPECIFIED documented in this encounter Discharge Instructions * Discharge Instructions* Harry Santos MD - 06/06/2019 8:25 AM CDT Continue home medication, follow with your doctor. * Attachments The following attachments cannot be sent through Care Everywhere. * Acute Nausea and Vomiting (AfterCare(R) Instructions(ER/ED)) (Citizen Of [place]) documented in this encounter Medications at Time [...] Comment s Discharge to home or self prison documented in this encounter ED Notes * Harry Santos MD - 06/06/2019 7:01 AM CDT HPI Chief Complaint Patient presents with ??? Vomiting ??? Diarrhea HPI 7:01 AM Carito Rausch is a 29 y.o. female with a hx of lupus, anemia, fibromyalgia, and CKD presenting to the ED c/o constant N/V/D that began 20 days ago. Pt also reports moderate abdominal pain (5/10) in association with her N/V/D sx. Pt also adds that she has been unable to tolerate food during this time. She was seen here in the ED 2 weeks ago with similar sx and was discharged with zofran and lomotil for treatment. She states that the medications have not been relieving her sx. She states that she saw her PCP yesterday for a follow-up appointment. She states that her PCP advised her to come to the ED for further evaluation. At this time she denies any fever, chills, cough, or SOB. She notes that her COVID-19 test was negative the last time she was seen here in the ED. Pt has had right wrist surgery and an appendectomy in the past. She currently lives at home and is a non smoker. PMSFHx: Nursing note reviewed. Patient History Past Medical History: Diagnosis Date [...] Constitutional: Negative for chills, fatigue and fever. Unable to tolerate food HENT: Negative for congestion, ear pain, rhinorrhea, sneezing and sore throat. Respiratory: Negative for cough, shortness of breath and wheezing. Cardiovascular: Negative for chest pain and palpitations. Gastrointestinal: Positive for abdominal pain (moderate), diarrhea, nausea and vomiting. Negative for constipation. Genitourinary: Negative for dysuria and frequency. Musculoskeletal: Negative for arthralgias, back pain, myalgias and neck pain. Skin: Negative for rash and wound. Neurological: Negative for dizziness, syncope, weakness, light-headedness and headaches. All other systems reviewed and are negative. Physical Exam ED Triage Vitals Temp Pulse Resp BP SpO2 06/06/19 0703 06/06/19 0703 06/06/19 0703 06/06/19 0706 06/06/19 0703 36.7 ??C (98 ??F) 100 15 148/97 100 % Temp src Heart Rate Source Patient Position BP Location FiO2 (%) 06/06/19 0703 -- -- -- -- Oral Physical Exam Vitals signs and nursing note [...] is soft. Tenderness: There is abdominal tenderness. Comments: Mild epigastric tenderness Musculoskeletal: Normal range of motion. Skin: General: Skin is warm. Capillary Refill: Capillary refill takes less than 2 seconds. Neurological: General: No focal deficit present. Mental Status: She is alert and oriented to person, place, and time. Procedures [facility] Labs Reviewed URINALYSIS AND REFLEX TO MICROSCOPIC AND CULTURE - Abnormal Result Value Color, ur Yellow Clarity, ur Turbid (*) Specific gravity, ur 1.018 pH, urine 5.5 Protein, ur ql Trace Glucose, ur ql Negative Ketones, ur Negative Bilirubin, ur Negative Blood, ur Negative Urobilinogen, ur <2.0 Nitrite, ur Negative Leukocyte esterase, ur 2+ (*) UA reflex comment Reflex to microscopic [...] stone formation. Source: [facility] [employer].Last revised 03-08-2017 CBC WITH AUTO DIFFERENTIAL - Abnormal WBC 4.5 Hgb 10.8 (*) Hct 34.3 (*) Plt 293 MPV 9.1 RBC 3.78 (*) MCV 90.7 MCH 28.6 MCHC 31.5 (*) RDW CV 14.7 RDW SD 49.1 (*) NRBC abs 0.00 COMPREHENSIVE METABOLIC PANEL - Abnormal Sodium 141 Potassium, pl 3.8 Chloride 103 CO2 27 Anion gap 11 BUN 11 Creatinine 0.57 (*) Glucose 87 Calcium 9.2 Bilirubin, total 0.2 Protein, pl 6.7 Albumin 4.0 Alk phos 39 (*) ALT 9 AST 11 URINALYSIS, MICROSCOPIC ONLY - Abnormal WBC, ur 0-5 RBC, ur 0-2 Epithelial cells, squamous, ur 11-20 (*) Bacteria, ur 1+ (*) Mucous, ur Present (*) Sperm, ur Present (*) Culture Reflex Comment Value: Reflex conditions for urine culture (WBC >10) not met. DIFFERENTIAL AUTO Neutrophil abs 3.3 Imm gran abs 0.0 Lymphocyte abs 0.9 Monocyte abs 0.2 Eosinophil abs 0.1 Basophil abs 0.0 Neutrophil pct 73.6 Imm gran pct 0.7 Lymphocyte pct 19.1 Monocyte pct 4.4 Eosinophil pct 2.0 Basophil pct 0.2 EGFR GFR 127 HCG, BLOOD, QUANTITATIVE hCG, quant <5.0 No orders to display BP 148/97 Pulse 100 Temp 36.7 ??C (98 ??F) (Oral) Resp 15 LMP 04/14/2019 SpO2 100% MDM Clinical Impression: Vomiting and diarrhea This note is prepared by Tima Beach, acting as a scribe for Harry Santos MD. I electronically signed this note at 7:01 AM on 06/06/2019. I, Harry Santos MD have personally performed the services described in the documentation, reviewed the documentation, as recorded by the scribe in my presence, and it accurately and completely records my words and actions. Harry Santos MD 06/06/19 0826 * Leti Mcleod, RN - 06/06/2019 7:01 AM CDT Pt presents to the Ed with N/V/D x 20 days. Pt reports that she is able to eat but has diarrhea shortly after eating. Pt has been tested for covid and has tested negative. documented in this encounter Plan of Treatment Not on file documented as of this encounter Procedures Procedure Name Priority Date/Time Associated Diagnosis Comments EGFR STAT 06/06/2019 7:25 AM CDT DIFFERENTIAL AUTO STAT 06/06/2019 7:2 5 AM CDT CBC WITH AUTO DIFFERENTIAL STAT 06/06/2019 7:25 AM CDT HCG, BLOOD, QUANTITATIVE STAT 06/06/2019 7:25 AM CDT COMPREHENSIVE METABOLIC PANEL STAT 06/06/2019 7:25 AM CDT URINALYSIS AND REFLEX TO MICROSCOPIC AND CULTURE STAT 06/06/2019 7:12 AM CDT URINALYSIS, MICROSCOPIC ONLY STAT 06/06/2019 7:12 AM CDT documented in this encounter Results * hCG, blood, quantitative (06/06/2019 7:25 AM CDT) Pathologist [facility] hCG, quant <5.0 0.0 - 5.0 IUnits/L [facility] Comment: Interpretive Data Non- Female premenopausal: < or = 5.0 IUnits/L Men: < 5.0 IUnits/L Weeks of Gestation ? Reference Interval ?? 3 to 6 ? 5.8-31,795 IUnits/L ?? 7 to 10 ? 3,697-186,977 IUnits/L ??12 to 15 ?27,832- 70,791 IUnits/L ??16 to 18 ? 9,040- 58,179 IUnits/L Current Interpretive Data was last revised on 2017. Blood specimen (specimen) 06/06/2019 7:25 AM CDT 06/06/2019 7:57 AM CDT us Harry Santos MD LAB BLOOD ORDERABLES Edited Re sult - Final [facility] 1 [facility] Department of Laboratories [place], [place] [id number] * eGFR (06/06/2019 7:25 AM CDT) Pathologist [facility] eGFR 127 mL/min/1.7 3 m2 [facility] Comment: Interpretive Data Reference Interval Normal ?>/= 90 mL/min/1.73m2 Mildly decreased* ? 60 - 89 mL/min/1.73m2 Mildly to moderately decreased ?45 - 59 mL/min/1.73m2 Moderately to severely decreased ??30 - 44 mL/min/1.73m2 Severely decreased ?15 - 29 mL/min/1.73m2 Kidney Failure ?< 15 ??mL/min/1.73m2 *Relative to young adult level If -Icelandic multiply value by 1.16. Estimated glomerular filtration [...] was last reviewed 2015. Blood specimen (specimen) 06/06/2019 7:25 AM CDT 06/06/2019 7:32 AM CDT us Harry Santos MD LAB BLOOD ORDERABLES Final Res ult [facility] 1 [facility] Department [place] [address] * Differential, auto (06/06/2019 7:25 AM CDT) Neutrophil abs 3.3 1.7 - 6.5 K/cumm [facility] Imm gran abs 0.0 0.0 - 0.1 K/cumm [facility] Lymphocyte abs 0.9 0.8 - 3.3 K/cumm [facility] Monocyte abs 0.2 0.2 - 0.8 K/cumm [facility] Eosinophil abs 0.1 0.0 - 0.5 K/cumm [facility] Basophil abs 0.0 0.0 - 0.1 K/cumm [facility] Neutrophil pct 73.6 % [facility] Comment: Interpretive [...] was last revised on 2017. Lymphocyte pct 19.1 % [facility] Comment: Interpretive Data Percent cell count reference ranges are not reported, since discordance with absolute values may lead to misinterpretation of CBC data. Current Interpretive Data was last revised on 2017. Monocyte pct 4.4 % [facility] Comment: Interpretive Data [...] last revised on 2017. Blood specimen (specimen) 06/06/2019 7:25 AM CDT 06/06/2019 7:32 AM CDT us Harry Santos MD LAB BLOOD ORDERABLES Final Res ult [facility] ([place]) 1 [facility] Department [place] [address] * (ABNORMAL) Comprehensive metabolic panel (06/06/2019 7:25 AM CDT) Sodium 141 135 - 145 mmol/L [facility] Potassium, pl 3.8 3.3 - 4.9 mmol/L [facility] Chloride 103 97 - 110 mmol/L [facility] CO2 27 22 - 32 mmol/L [facility] Anion gap 11 2 - 15 mmol/L [facility] BUN 11 8 - 25 mg/dL [facility] Creatinine 0.57(L) 0.60 - 1.10 mg/dL [facility] Glucose 87 70 - 199 mg/dL [facility] [...] Units/L [facility]) Blood specimen (specimen) 06/06/2019 7:25 AM CDT 06/06/2019 7:32 AM CDT us Harry Santos MD LAB BLOOD ORDERABLES Final Res ult [facility] 1 [facility] Department [place] [address] * (ABNORMAL) CBC with auto differential (06/06/2019 7:25 AM CDT) WBC 4.5 3.8 - 9.9 K/cumm [facility] Hgb 10.8(L) 11.9 - 15.5 g/dL [facility] Hct 34.3(L) 35.6 - 45.5 % [facility] Plt 293 150 - 400 K/cumm [facility] MPV 9.1 9.1 - 12.3 fL [facility] RBC 3.78(L) 3.90 - 5.20 M/cumm [facility] MCV 90.7 81.3 - 96.4 fL [facility] MCH 28.6 27.1 - 33.3 pg [facility] MCHC 31.5(L) 32.3 - 35.7 g/dL [facility] RDW CV 14.7 11.1 - 14.9 % [facility] RDW SD 49.1(H) 35.7 - 48.1 fL [facility] NRBC abs 0.00 0.00 - 0.01 K/cumm [facility] Blood specimen (specimen) 06/06/2019 7:25 AM CDT 06/06/2019 7:32 AM CDT us Harry Santos MD LAB BLOOD ORDERABLES Final Res ult [facility] ([place] 1 [facility] Department [place] [address] * (ABNORMAL) Urinalysis, microscopic only (06/06/2019 7:12 AM CDT) WBC, ur 0-5 0 - 5 /HPF [facility] RBC, ur 0-2 0 - 2 /HPF [facility] Epithelial cells, squamous, ur 11-20(A) 0 - 5 /HPF [facility] Bacteria, ur 1+(A) [facility] Mucous, ur Present(A) [facility] Sperm, ur Present(A) [facility] Culture Reflex Comment Reflex conditions for urine culture (WBC >10) not met. [facility] Urine 06/06/2019 7:12 AM CDT 06/06/2019 7:15 AM CDT Harry Santos MD LAB URINE ORDERABLES Final Res ult Performing Organization Address City/State/[facility] Co de Phone Number [facility] ([place] 1 [facility] Department [place] [address] * (ABNORMAL) Urinalysis reflex to microscopic and culture Urine (06/06/2019 7:12 AM CDT) Color, ur Yellow Yellow [facility] Clarity, ur Turbid(A) Clear [facility]) Specific gravity, ur 1.018 1.010 - 1.025 [facility] pH, urine 5.5 [facility] Protein, ur ql Trace Negative [facility] Glucose, ur ql Negative Negative [facility] Ketones, ur Negative Negative [facility] Bilirubin, ur Negative Negative [facility] Blood, ur Negative Negative [facility] Urobilinogen, ur <2.0 <2.0 mg/dL [facility] Nitrite, ur Negative Negative [facility]) Leukocyte esterase, ur 2+(A) Negative [facility]) UA reflex comment Reflex to microscopic UA will be performed. [facility] Urine 06/06/2019 7:12 AM CDT 06/06/2019 7:15 AM CDT Narrative [facility] - 06/06/2019 7:18 AM CDT ?? Urine pH is affected by diet, medications, systemic acid-base disturbances, and renal tubular function. ??pH may affect urinary stone formation. ??For example, urine pH below 6.0 may help reduce the tendency for calcium phosphate stones and pH greater than 6.0 may reduce the tendency for uric acid stone formation. Source: [employer]. Last revised 03-08-2017 Harry Santos MD LAB MICROBIOLOGY - GENERAL ORD ERABLES Final Result [facility] 1 [facility] Department [place] [address] documented in this encounter Visit Diagnoses Diagnosis Vomiting and diarrhea- Primary documented in this encounter Care Teams Early Childhood Aide Classroom Relationship Specialty [place] [address] [address] [facility] [place] [address] PCP - General 11/16/18 06/24/19 [place] [address] [address] [facility] [place] [address] 11/16/18 documented as of this encounter
--- OUTSIDE RECORDS SUMMARY | 2024-02-24 20:16 | XMS_ITS | Encounter Summary ---
Author Organization [facility] Address [address] [place] [address] Care Team Providers Care Computer Trainer Name Role Phone Huseyin Dangelo MD Primary Care Provider [phone] Huseyin Dangelo MD Unavailable [phone] Reason for Visit * Reason Comments Pain Encounter Details Date Type Department Care Team (Late st Contact Info) Description 12/30/2018 10:00 AM COSMETIC SALES ASSISTANT Office Visit [facility] Hand Surgery [address] [place] [phone] Chino Zaldivar MD [address] [place] [address] Laceration of flexor muscle, fascia and tendon [...] Progress Notes * Chino Zaldivar MD - 12/30/2018 10:00 AM CSTAssociated Order(s): Ortho Casting/Splinting Documentation Pre-Procedure Diagnose(s): Laceration of flexor muscle, fascia and tendon of right little finger atwrist and hand level, initial encounter Post-Procedure Diagnose(s): Laceration of flexor muscle, fascia and tendon of right little finger at wrist and hand level, initial encounter Images from the original note were not included. Patient ID: Carito Rausch is a 28 y.o. female. Visit Date: 12/30/2018 Chief Complaint: Right wrist surgery HPI: she reports 6/10 pain no fevers or chills Review of Systems There were no vitals taken for this visit. Physical Exam: Healing incision with no signs of infection at today's exam Xray / Imaging: None 1. Laceration of flexor muscle, fascia and tendon of right little finger at wrist and hand level, initial encounter PLAN: Will place her in a short-arm splint she will keep her previously scheduled visit she agrees with this plan her pain is controlled at this time Ortho Casting/Splinting Documentation Date/Time: 12/30/2018 9:25 AM Performed by: Chino Zaldivar MD Authorized by: Chino Zaldivar MD Sensation: Normal Cast Applied: No Location: Wrist Wrist: R wrist Spint type: Short arm splint Supplies: Fiberglass, cotton stocking/sleeve and cotton Padding Number of fiberglass rolls used: 1 Capillary Refill: Normal Patient tolerance of procedure: Tolerated well, no immediate complications ETIC SALES ASSISTANT documented in this encounter Plan of Treatment Not on file documented as of this encounter Procedures Procedure Name Priority Date/Time Associated Diagnosis Comments ORTHO CASTING/SPLINTING Routine 12/30/2018 10:00 AM COSMETIC SALES ASSISTANT Laceration of flexor muscle, fascia and tendon of right little finger at wrist and hand level, initial encounter documented in this encounter Results * Ortho Casting/Splinting Documentation (12/30/2018 10:00 AM COSMETIC SALES ASSISTANT) Narrative Chino Zaldivar MD - 12/30/2018 10:00 AM COSMETIC SALES ASSISTANT Chino Zaldivar MD ? 12/30/2018 ??9:26 AM Ortho Casting/Splinting Documentation Date/Time: 12/30/2018 9:25 AM Performed by: Chino Zaldivar MD Authorized by: Chino Zaldivar MD Sensation: ??Normal Cast Applied: No ?? Location: ??Wrist Wrist: ??R wrist Spint type: ??Short arm splint Supplies: ??Fiberglass, cotton stocking/sleeve and cotton Padding Number of fiberglass rolls used: ??1 Capillary Refill: ??Normal Patient tolerance of procedure: ??Tolerated well, no immediate complications us Chino Zaldivar MD IN CLINIC[facility]IDE [facility]A BLES Final Result documented in this encounter Visit Diagnoses Diagnosis Laceration of flexor muscle, fascia and tendon of right little finger at wrist and hand level, initial encounter- Primary documented in this encounter Care Teams Computer Trainer Relationship Specialty [place] [address] [address] [place] [address] PCP - General 11/16/18 06/24/19 [place] [address] [address] [place] [address] 11/16/18 documented as of this encounter
--- OUTSIDE RECORDS SUMMARY | 2024-02-24 20:16 | XMS_ITS | Encounter Summary ---
Author Organization [facility] Facility Care Team Providers Care Roadway Designer Name Role Phone Huseyin Dangelo MD Primary Care Provider Huseyin Dangelo MD Unavailable [phone] Encounter Details Date Type Department Care Team (Latest Contact Info) Description 02/17/2019 Travel Social History Tobacco Use Types Packs/Day [...] on filedocumented in this encounter Care Teams Roadway Designer Relationship Specialty Start [place] [address] [address] [place] [address] PCP - General 11/16/18 06/24/19 [place] [address] [address] [place] [address] 11/16/18 documented as of this encounter
--- OUTSIDE RECORDS SUMMARY | 2024-02-24 20:16 | XMS_ITS | Encounter Summary ---
Author Organization [facility] Facility Care Team Providers Care Veterinarian Epidemiologist Name Role Phone Huseyin Dangelo MD Primary Care Provider [phone] Huseyin Dangelo MD Unavailable [phone] Encounter Details Date Type Department Care [...] on filedocumented in this encounter Care Teams Veterinarian Epidemiologist Relationship Specialty Start [place] [address] [address] [place] [address] PCP - General 11/16/18 06/24/19 [place] [address] [address] [place] [phone] 11/16/18 documented as of this encounter
--- OUTSIDE RECORDS SUMMARY | 2024-02-24 20:16 | XMS_ITS | Encounter Summary ---
Author Organization [facility] Healthcare Address [address] [place] [address] Care Team Providers Care International Sales Manager Name Role Phone Huseyin Dangelo MD Primary Care Provider [phone] Huseyin Dangelo MD Unavailable [phone] Encounter Details Date Type Department Care Team (Late st Contact Info) Description 12/26/2018 8:09 AM CDT - 12/26/2018 11:59 PM CDT Hospital Encounter [facility] Chino Zaldivar MD [address] [facility] [address] [address] Discharge Disposition: Discharge to home or self [...] Sign Reading Time Taken Comments Blood Pressure 135/88 12/26/2018 9:06 AM CDT Pulse 87 12/26/2018 9:06 AM CDT Temperature 36.9 ??C (98.5 ??F) 12/26/2018 9:06 AM CD T Respiratory Rate - - Oxygen Saturation 93% 12/26/2018 9:06 AM CDT Inhaled Oxygen Concentration - - Weight 65.5 kg (144 lb 6.4 oz) 12/26/2018 9:06 A M CDT Height 157.5 cm (5' 2 ) 12/26/2018 9:06 AM CDT Body Mass Index 26.41 12/26/2018 9:06 AM CDT documented in this encounter Medications at Time of Discharge ALPRAZolam (XANAX) 0.25 mg tablet Take 0.25 mg by mouth 3 (three) times a day as needed 07/15/2020 omeprazole (PriLOSEC) 20 mg capsule Take 20 mg by mouth daily 05/24/2019 predniSONE (DELTASONE) 5 mg tablet Take 5-15 mg by mouth daily 01/19/2019 pregabalin (LYRICA) 75 mg capsule Take 1 capsule (75 mg total) by mouth 2 (two) times a day 60 capsule 12/17/2018 01/19/2019 documented as of this encounter Discharge Disposition Disposition Code Departure Means Destination Discharge to home or self care documented in this encounter Plan of Treatment Not on file documented as of this encounter Visit Diagnoses Not on filedocumented in this encounter Care Teams International Sales Manager Relationship Specialty Start [place] [address] [address] [place] [address] PCP - General 11/16/18 06/24/19 [place] [address] [address] [place] [address] 11/16/18 documented as of this encounter
--- OUTSIDE RECORDS SUMMARY | 2024-02-24 20:16 | XMS_ITS | Encounter Summary ---
Author Organization [facility] Healthcare Address [address] [place] [address] Care Team Providers Care Dairy Science Teacher Name Role Phone Huseyin Dangelo MD Primary Care Provider [phone] Huseyin Dangelo MD Unavailable Reason for Visit * Reason Comments Chest Pain Encounter Details Date Type Department Care Team (Late st Contact Info) Description 01/27/2019 9:37 AM TURBINE ROOM ATTENDANT - 01/27/2019 12:31 PM TURBINE ROOM ATTENDANT Emergency [facility] Emergency Department [address] [place] [address] Discharge Disposition: Left without being seen Social [...] Sign Reading Time Taken Comments Blood Pressure 126/93 01/27/2019 9:51 AM TURBINE ROOM ATTENDANT Pulse 89 01/27/2019 9:51 AM TURBINE ROOM ATTENDANT Temperature 36.7 ??C (98.1 ??F) 01/27/2019 9:51 AM CS T Respiratory Rate 18 01/27/2019 9:51 AM TURBINE ROOM ATTENDANT Oxygen Saturation 99% 01/27/2019 9:51 AM TURBINE ROOM ATTENDANT Inhaled Oxygen Concentration - - Weight 63.5 kg (140 lb) 01/27/2019 9:52 AM TURBINE ROOM ATTENDANT Height 157.5 cm (5' 2 ) 01/27/2019 9:52 AM TURBINE ROOM ATTENDANT Body Mass Index 25.61 01/27/2019 9:52 AM TURBINE ROOM ATTENDANT documented in this encounter Discharge Diagnoses Diagnosis Procedure and treatment not carried out because [...] documented in this encounter ED Notes * Dayna Ricks RN - 01/27/2019 9:49 AM CST Stabbing left sided chest pain radiating in back for 2 days. Pt denies any dizziness, SOB, N/V/D. Pt states a slight cough. Hx of Lupus INE ROOM ATTENDANT documented in this encounter Plan of Treatment Not on file documented as of this encounter Procedures Procedure Name Priority Date/Time Associated Diagnosis Comments XR CHEST PA LATERAL 2 VIEWS ED 01/27/2019 11:00 AM TURBINE ROOM ATTENDANT EGFR STAT 01/27/2019 10:01 AM TURBINE ROOM ATTENDANT DIFFERENTIAL AUTO STAT 01/27/2019 10: 01 AM TURBINE ROOM ATTENDANT CBC WITH AUTO DIFFERENTIAL STAT 01/27/2019 10:01 AM TURBINE ROOM ATTENDANT TROPONIN T STAT 01/27/2019 10:01 AM TURBINE ROOM ATTENDANT COMPREHENSIVE METABOLIC PANEL STAT 01/27/2019 10:01 AM TURBINE ROOM ATTENDANT documented in this encounter Results * XR Chest Pa Lateral 2 Views (01/27/2019 11:00 AM TURBINE ROOM ATTENDANT) Anatomical Region Laterality Modality Body, Chest N/A Computed Radiogr aphy 01/27/2019 11:1 9 AM TURBINE ROOM ATTENDANT Impressions 01/27/2019 11:21 AM TURBINE ROOM ATTENDANT NO ACTIVE DISEASE. Electronically signed by: Andrey Hernandez M.D. Narrative 01/27/2019 11:21 AM TURBINE ROOM ATTENDANT XR CHEST PA LATERAL 2 VIEWS HISTORY: Shortness of breath. ??Chest pain COMPARISON: None available. FINDINGS: Heart size is normal. ??Lungs are clear. Procedure Note Andrey Hernandez MD - 01/27/2019 XR CHEST PA LATERAL 2 VIEWS HISTORY: Shortness of breath. Chest pain COMPARISON: None available. FINDINGS: Heart size is normal. Lungs are clear. IMPRESSION: NO ACTIVE DISEASE. Electronically signed by: Andrey Hernandez M.D. Nina Faith MD IMG XR PROCEDURES Final R esult * eGFR (01/27/2019 10:01 AM TURBINE ROOM ATTENDANT) eGFR 135 mL/min/1.7 3 m2 [facility] ([place]) Comment: Interpretive Data Reference Interval Normal ?>/= 90 mL/min/1.73m2 Mildly decreased* ? 60 - 89 mL/min/1.73m2 Mildly to moderately decreased ?45 - 59 mL/min/1.73m2 Moderately to severely decreased ??30 - 44 mL/min/1.73m2 Severely decreased ?15 - 29 mL/min/1.73m2 Kidney Failure ?< 15 ??mL/min/1.73m2 *Relative to young adult level If -Malian multiply value by 1.16. Estimated glomerular filtration [...] was last reviewed 2015. Blood specimen (specimen) 01/27/2019 10:01 AM TURBINE ROOM ATTENDANT 01/27/2019 10:05 AM TURBINE ROOM ATTENDANT Nina Faith MD LAB BLOOD ORDERABLES Briana narayan Result [facility] ([place]) 1 [facility] Department [place] [address] * (ABNORMAL) Differential, auto (01/27/2019 10:01 AM TURBINE ROOM ATTENDANT) Neutrophil abs 3.8 1.7 - 6.5 K/cumm [facility] ([place]) Imm gran abs 0.0 0.0 - 0.1 K/cumm [facility] ([place]) Lymphocyte abs 0.5(L) 0.8 - 3.3 K/cumm [facility] ([place]) Monocyte abs 0.3 0.2 - 0.8 K/cumm [facility] ([place]) Eosinophil abs 0.0 0.0 - 0.5 K/cumm [facility] ([place]) Basophil abs 0.0 0.0 - 0.1 K/cumm [facility] ([place]) Neutrophil pct 81.0 % [facility] ([place]) Comment: Interpretive [...] was last revised on 2017. Lymphocyte pct 11.5 % [facility] ([place]) Comment: Interpretive Data Percent cell count reference ranges are not reported, since discordance with absolute values may lead to misinterpretation of CBC data. Current Interpretive Data was last revised on 2017. Monocyte pct 7.1 % [facility] ([place]) Comment: Interpretive Data Percent cell count reference ranges are not reported, since discordance with absolute values may lead to misinterpretation of CBC data. Current Interpretive Data was last revised on 2017. Eosinophil pct 0.0 % [facility] ([place]) Comment: Interpretive Data Percent cell count reference ranges are not reported, since discordance with absolute values may lead to misinterpretation of CBC data. Current Interpretive Data was last revised on 2017. Basophil pct 0.2 % [facility] ([place]) Comment: Interpretive Data Percent cell count reference ranges are not reported, since discordance with absolute values may lead to misinterpretation of CBC data. Current Interpretive Data was last revised on 2017. Blood specimen (specimen) 01/27/2019 10:01 AM TURBINE ROOM ATTENDANT 01/27/2019 10:05 AM TURBINE ROOM ATTENDANT Nina Faith MD LAB BLOOD ORDERABLES Briana narayan Result [facility] ([place]) 1 [facility] Department [place] [address] * Troponin T (01/27/2019 10:01 AM TURBINE ROOM ATTENDANT) Troponin T <0.01 0.00 - 0.01 ng/mL [...] limit for troponin assay. ??Journal of the [place] [employer] 2012;60:1581-98. Current Interpretive Data Last Revised Date: 2017. Blood specimen (specimen) 01/27/2019 10:01 AM TURBINE ROOM ATTENDANT 01/27/2019 10:05 AM TURBINE ROOM ATTENDANT Nina Faith MD LAB BLOOD ORDERABLES Briana helene Result [facility] ([place]) 1 [facility] Department [place] [address] * (ABNORMAL) Comprehensive metabolic panel (01/27/2019 10:01 AM TURBINE ROOM ATTENDANT) Sodium 139 135 - 145 mmol/L [facility] ([place]) Potassium, pl 3.9 3.3 - 4.9 mmol/L [facility] ([place]) Chloride 101 97 - 110 mmol/L [facility] ([place]) CO2 26 22 - 32 mmol/L [facility] ([place]) Anion gap 12 2 - 15 mmol/L [facility] ([place]) BUN 13 8 - 25 mg/dL [facility] ([place]) Creatinine 0.48(L) 0.60 - 1.10 mg/dL [facility] ([place]) Glucose 116 70 - 199 mg/dL [facility] ([place]) [...] 1.2 mg/dL [facility] ([place]) Protein, pl 7.7 6.5 - 8.5 g/dL [facility] ([place]) Albumin 4.4 3.5 - 5.0 g/dL [facility] ([place]) Alk phos 53 40 - 130 Units/L [facility] ([place]) ALT 26 7 - 45 Units/L [facility] ([place]) AST 19 10 - 45 Units/L [facility] ([place]) Blood specimen (specimen) 01/27/2019 10:01 AM TURBINE ROOM ATTENDANT 01/27/2019 10:05 AM TURBINE ROOM ATTENDANT Nina Faith MD LAB BLOOD ORDERABLES Briana l Result Performing Organization Address City/[facility]/ZIP Co de Phone Number [facility] ([place]) 1 [facility] [employer] [address] * (ABNORMAL) CBC with auto differential (01/27/2019 10:01 AM TURBINE ROOM ATTENDANT) WBC 4.7 3.8 - 9.9 K/cumm [facility] ([place]) Hgb 12.1 11.9 - 15.5 g/dL [facility] ([place]) Hct 38.7 35.6 - 45.5 % [facility] ([place]) Plt 258 150 - 400 K/cumm [facility] ([place]) MPV 9.5 9.1 - 12.3 fL [facility] ([place]) RBC 4.26 3.90 - 5.20 M/cumm [facility] ([place]) MCV 90.8 81.3 - 96.4 fL [facility] ([place]) MCH 28.4 27.1 - 33.3 pg [facility] ([place]) MCHC 31.3(L) 32.3 - 35.7 g/dL [facility] ([place]) RDW CV 13.8 11.1 - 14.9 % [facility] ([place]) RDW SD 46.2 35.7 - 48.1 fL [facility] ([place]) NRBC abs 0.00 0.00 - 0.01 K/cumm [facility] ([place]) Blood specimen (specimen) 01/27/2019 10:01 AM TURBINE ROOM ATTENDANT 01/27/2019 10:05 AM TURBINE ROOM ATTENDANT Nina Faith MD LAB BLOOD ORDERABLES Briana l Result Performing Organization Address City/[facility]/ZIP Co de Phone Number [facility] ([place]) [address] Department [place] [address] documented in this encounter Visit Diagnoses Not on filedocumented in this encounter Orders EKG Orders Without Results Count Last Ordered D ate First Ordered Date ECG 12-LEAD 1 01/27/2019 documented in this encounter Care Teams Dairy Science Teacher Relationship Specialty Start [place] [id number] [address] [place] [address] PCP - General 11/16/18 06/24/19 [place] [id number] [address] [place] [phone] 11/16/18 documented as of this encounter
--- OUTSIDE RECORDS SUMMARY | 2024-02-24 20:16 | XMS_ITS | Encounter Summary ---
Author Organization [facility] Facility Care Team Providers Care Pole Tester Name Role Phone Huseyin Dangelo MD Primary Care Provider [phone] Huseyin Dangelo MD Unavailable [phone] Encounter Details Date Type Department Care Team (Latest Contact Info) Description 01/19/2019 Travel Social History Tobacco Use Types Packs/Day [...] filedocumented in this encounter Care Teams Pole Tester Relationship Specialty Start [place] [id number] [address] [place] [address] PCP - General 11/16/18 06/24/19 [place] [id number] [address] [place] [phone] 11/16/18 documented as of this encounter
--- OUTSIDE RECORDS SUMMARY | 2024-02-24 20:16 | XMS_ITS | Encounter Summary ---
Author Organization [facility] Healthcare Address [address] [place] [address] Care Team Providers Care Dental Treatment Coordinator Name Role Phone Huseyin Dangelo MD Primary Care Provider [phone] Huseyin Dangelo MD Unavailable [phone] Reason for Visit * Reason Comments COVID-19 EVALUATION Encounter Details Date Type Department Care Team (Late st Contact Info) Description 05/24/2019 10:11 AM CDT - 05/25/2019 4:55 PM CDT Hospital Encounter [facility] [address] [place] [address] Jorge Arriaga MD [address] [address] [place] [id number] [address] Yvette Ansari MD [address] [place] [id number] Tachycardia (Primary Dx); Acute viral syndrome; Lupus (CMS/HCC); On prednisone therapy; Suspected Covid-19 Virus Infection; Spontaneous miscarriage Discharge Disposition: Discharge to home or self [...] Sign Reading Time Taken Comments Blood Pressure 112/75 05/25/2019 2:53 PM CDT Pulse 113 05/25/2019 3:30 PM CDT Temperature 36.4 ??C (97.5 ??F) 05/25/2019 2:53 PM CD T Respiratory Rate 18 05/25/2019 2:53 PM CDT Oxygen Saturation 100% 05/25/2019 2:53 PM CDT Inhaled Oxygen Concentration - - Weight 69.9 kg (154 lb) 05/24/2019 2:20 PM CDT Height 167.6 cm (5' 6 ) 05/24/2019 2:20 PM CDT Body Mass Index 24.86 05/24/2019 2:20 PM CDT documented in this encounter Discharge Diagnoses Diagnosis Cough - COUGH Viral infection, unspecified - VIRAL INFECTION, UNSPECIFIED Complete or unspecified spontaneous without complication - COMPLETE OR UNSPECIFIED SPONTANEOUS WITHOUT COMPLICATION Other specified intestinal infections - OTHER SPECIFIED INTESTINAL INFECTIONS Rheumatoid arthritis, unspecified (HCC) - RHEUMATOID ARTHRITIS, UNSPECIFIED Fibromyalgia - FIBROMYALGIA Unspecified myalgia and myositis Other forms of systemic lupus erythematosus (HCC) - OTHER FORMS OF SYSTEMIC LUPUS ERYTHEMATOSUS Chronic kidney disease, unspecified - CHRONIC KIDNEY DISEASE, UNSPECIFIED Allergy status to other drugs, medicaments and biological substances status - ALLERGY STATUS TO OTHER DRUGS, MEDICAMENTS AND BIOLOGICAL SUBSTANCES STATUS [facility] (current) use of systemic steroids - SKILLED NURSING (CURRENT) USE OF SYSTEMIC STEROIDS documented in this encounter Discharge Summaries * Yvette Ansari MD - 05/25/2019 3:27 PM CDT Inpatient Discharge Summary BRIEF OVERVIEW Admitting Provider: Negro Campos MD Discharge Provider: Yvette Ansari MD Primary Care Physician at Discharge: Huseyin Dangelo MD [phone] Admission Date: 05/24/2019 Discharge Date: 05/25/2019 Date of Service: May 25, 2019 Primary Discharge Diagnosis: Cough Secondary Discharge Diagnosis: Active Problems: Cough Lupus (CMS/HCC) Miscarriage Diarrhea of presumed infectious origin DETAILS OF HOSPITAL STAY Presenting Problem/History of Present Illness: Cough Hospital Course on admission: 1. Cough and body ache, ED physician suspected COVID-19. Test is pending. She is in isolation. Natalee follow with results. Patient is already on Plaquenil but the smaller does. I do not think patienta necessarily need COVID -19 treatment at this point. Chest X x-ray clear, she does not have significant cough all the time I was in the room she did not have any cough, lung sounds coarse but otherwise no crackles rales or wheezing. She did not have fever have mild lymphopenia but white cells are within normal limits. S 2. Systemic lupus erythematosus, will continue Plaquenil and small dose of prednisone. 3. Nausea vomiting diarrhea, could be the secondary to some viral syndrome and also possibility of COVID-19. Will continue symptomatic treatment. If she continues nausea vomiting then will start IV fluids. 4. Miscarriage suspected. The hCG was positive. She thinks she has 4-6 week . But she is also sure that she is having a miscarriage. Will monitor she is stable and hemoglobin is stable does not have any abdominal pain or excessive blood or clots. 5. Code status full code Service: Hospitalists Today Patient is feeling much better, but only complaint she has is discomfort in her throat. She denies having any pain or dysphagia or odynophagia but she has some discomfort. On examination with light Dwight not see any significant change or tonsillitis or redness or exudates. Recommending Peridex swishand spit and I recommended to call primary care physician tomorrow if he does not get better. COVID-19 was negative Patient is very happy to go home. Patient thinks she is having miscarriage. I recommended in a few days to check the hCG level again with her OBGYN. Patient agreed with the plan. Active Issues Requiring Follow-up: Miscarriage Test Results Pending at Discharge: Pending Labs Order Current Status Blood culture Blood Preliminary result Operative Procedures Performed: Other Procedures: Pertinent Test Results: Xr Chest 1 View Result Date: 05/24/2019 Narrative: PROCEDURE INFORMATION: Exam: XR Chest, 1 View Exam date and time: 05/24/2019 11:04 AM Age: 29 years old Clinical indication: Patient HX: Tachycardia; SOB, ? covid, early miscarriage suspected. Body aches and cough; Additional info: Tachycardia; SOB, ? covid, early misscariage suspect TECHNIQUE: Imaging protocol: XR of the chest Views: 1 view. COMPARISON: CR XR CHEST PA LATERAL 2 VIEWS 03/18/2019 12:02 PM FINDINGS: Lungs: There is no focal pulmonary consolidation. Pleural space: There are no pleural effusions present. There is no evidence of pneumothorax. Heart/Mediastinum: The cardiac silhouette is within normal limits. Bones/joints: The visualized bones demonstr ate no acute abnormalities. IMPRESSION: No acute cardiopulmonary disease. THIS DOCUMENT HAS BEEN ELECTRONICALLY SIGNED BY JACQUIE MARSHALL MD Discharge Details Physical Exam at Discharge: Discharge Condition: improved and stable. Pulse: 120 Resp: 18 BP: 112/75 Temp: 36.4 ??C (97.5 ??F) Pertinent Exam Findings at Discharge: No apparent distress, chest S1-S2, regular, no murmur gallop.Lungs clear to auscultation bilaterally. Abdomen is soft, nontender, bowel sounds are present, no organomegaly. Neck no lymphadenopathy or tenderness, throat does not have exudate or redness. Extremit ies no edema, pedal artery pulses are present bilaterally. Neuro examination nonfocal Discharge Disposition: Discharge to home or self care Code Status at Discharge: No Order Discharge Instructions: Activity Instructions Discharge activity: Resume normal activity Diet Instructions Adult Discharge Diet Diet Type: Return to previous diet Other Instructions Call provider for: Temperature -Temperature greater than 101 degrees F Call provider for: difficulty breathing or chest pain Call provider for: hives Call provider for: persistent nausea or vomiting Call provider for: redness, tenderness, or signs of infection (pain, swelling, redness, odor or green/yellow discharge around incision site) Call provider for: severe uncontrolled pain Call provider for: headache, visual disturbances, weakness and speech changes Discharge Medications: Your medication list CONTINUE taking these medications albuterol 90 mcg/actuation inhaler Commonly known as: PROAIR RESPICLICK ALPRAZolam 0.25 mg tablet Commonly known as: XANAX folic acid 1 mg tablet Commonly known as: FOLVITE hydroxychloroquine 200 mg tablet Commonly known as: PLAQUENIL predniSONE 5 mg tablet Commonly known as: DELTASONE Outpatient Follow-Up: Future Appointments Date Time Provider Department Center 06/12/2019 12:00 PM [facility] Rheum spent total of 35 minutes documented in this encounter Discharge Instructions * Discharge Instructions* Rima Barton RN - 05/25/2019 4:36 PM CDT Images from the original note were not included. Atrial Tachycardia WHAT YOU NEED TO KNOW: Atrial tachycardia is a condition that causes your heart to beat more than 100 times each minute. Atrial tachycardia is also called supraventricular tachycardia. It can develop because of problems with your heart's electrical system. Any of the following may also put you at risk for atrial tachycardia: ?? A heart condition, hypertension, or fatigue ?? Anxiety, stress, or pain ?? Large amounts of caffeine from coffee, tea, and energy drinks ?? Heavy alcohol use or cigarette smoking ?? Use of some medicines or street drugs DISCHARGE INSTRUCTIONS: Call 911 or have someone call if: ?? You have any of the following signs of a heart attack: ?? Squeezing, pressure, or pain in your chest that lasts longer than a few minutes. Chest pain may come and go. ?? Pain in your jaw, neck, one or both arms, upper and lower back, or stomach. ?? Shortness of breath, or panting ?? Nausea or vomiting ?? Lightheadedness ?? You cannot be woken. Contact your healthcare provider if: ?? Your pulse is faster than your healthcare provider said it should be. ?? You have frequent periods of a fast heart rate. ?? You feel weak or dizzy. ?? You have questions or concerns about your condition or care. Follow up with your healthcare provider as directed: You may need more tests. Write down your questions so you remember to ask them during your visits. Prevention and Management: ?? Decrease the amount of caffeine you drink. Caffeine can increase your heart rate. ?? Limit or do not drink alcohol. Alcohol can increase your heart rate. Ask your healthcare provider if it is safe for you to drink alcohol. Also ask how much is safe for you to drink. ?? Do not smoke. Nicotine and other chemicals in cigarettes can cause damage to your heart. Ask your healthcare provider for information if you currently smoke and need help to quit. E-cigarettes or smokeless tobacco still contain nicotine. Talk to your healthcare provider before you use these products. ?? Do not use illegal drugs. Drugs such as meth and cocaine can increase your heart rate. Talk to your healthcare provider if you use illegal drugs and need help to quit. ?? Get more rest. Fatigue can cause your heart rate to increase. ?? Learn ways to cope with stress. Stress, fear, and anxiety can cause a fast heart rate. Your healthcare provider may recommend relaxation techniques and deep breathing exercises. Your healthcare provider may recommend you talk to someone about your stress or anxiety, such as a counselor or a trusted friend. Check your pulse as directed: Your healthcare provider will show you how to check your pulse, and how often to check it. Write down how fast your pulse is and if it feels regular or like it is skipping beats. Also write down the activity you were doing if your heart rate is above 100. Bring the information with you to your follow-up appointment. ?? 2017 [employer] Information is for End User's use only and may not be sold, redistributed or otherwise used for commercial purposes. All illustrations and images included in CareNotes?? are the copyrighted property of [employer], [employer]. or [employer]. The above information is an pharmacist's aide only. It is not intended as medical advice for individual conditions or treatments. Talk to your doctor, nurse or pharmacist before following any medical regimen to see if it is safe and effective for you. THANK YOU for choosing our team to provide your health care. Your HEALTH AND SAFETY are important to us. We hope you feel your care on [facility] was ALWAYS EXCELLENT! Please call [facility] at [phone] if you have any questions regarding your care. Wishing you continued improvement during your recovery. Your Surgical Care Unit Team Maxine Brown Denise, Leena, Lupis, Blank, Margarita, Luzma, Caitlin, Almaz, Amanda, Leanne, Rima, Carol Dias Judy, Neisha, Samina Olmedo and Judy. * Attachments The following attachments cannot be sent through Care Everywhere. * Acute Cough (General Information) (Jordanian) * Anxiety (Discharge Care) (Jordanian) documented in this encounter Medications at Time of Discharge albuterol (PROAIR RESPICLICK) 90 mcg/actuation inhalerIndicatio ns:Acute Asthma Attack Inhale 2 puffs every 6 (six) hours as needed for wheezing 11/20/2019 ALPRAZolam (XANAX) 0.25 mg tablet Take 0.25 mg by mouth 3 (three) times a day as needed 07/15/2020 folic acid (FOLVITE) 1 mg tabletIndication s:Folate Deficiency Take 1 mg by mouth daily 07/06/2019 hydroxychloroqui ne (PLAQUENIL) 200 mg tablet Take 100 mg by mouth nightly 10/15/2019 predniSONE (DELTASONE) 5 mg tabletIndication s:autoimmune disease Take 12.5 mg by mouth daily 07/21/2019 documented as of this encounter Discharge Disposition Disposition Code Departure Means Destination Discharge to home or self care documented in this encounter H&P Notes * Yvette Ansari MD - 05/24/2019 3:58 PM CDT History and Physical Date of service May 16, [address] Huseyin Dangelo SUBJECTIVE HPI: This is a very pleasant 29-year-old female, past medical history of systemic lupus erythematosus with the joint involvement, he chronic kidney disease, probable myalgia, anxiety, rheumatoidarthritis, anemia of chronic disease, presented to hospital emergency room twice. On May 18 patient was at [facility] emergency room with the symptoms of body ache, cough, nausea vomiting diarrhea and brown spotting going on for couple of days and she was told at [facility] that she may have new Coronavirus and scheduled to test at [facility] coming next Sunday. Patient went home and continue to have the same symptoms, did not keep anything blood down and was having some nausea, more diarrhea and then she started having some it chest ache and came to our hospital emergency room. ED physician suspected possible COVID -19, nasal swab was negative for influenza and RSV. Call with swab was sent out to [facility]. Test results are still pending. Currently patient denies having any shortness of breath or cough, denies any chest pain. She is pretty comfortable. On physical examination there was no apparent distress. Chest x-ray shows shows a clear lungs Blood work is pretty good Patient takes daily prednisone 12.5 mg, Plaquenil in the morning and in the evening total of 300 mgdaily for at least a year. Currently she has some a joint tenderness and swelling in bilateral hands which is chronic for her. Past Medical History: Diagnosis Date ??? Anemia [...] Medication Sig Dispense Refill Last Dose ??? albuterol (PROAIR RESPICLICK) 90 mcg/actuation inhaler Inhale 2 puffs every 6 (six) hours as needed for wheezing 05/24/2019 at Unknown time ??? folic acid (FOLVITE) 1 mg tablet Take 1 mg by mouth daily 05/24/2019 at Unknown time ??? hydroxychloroquine (PLAQUENIL) 200 mg tablet Take 100 mg by mouth nightly ??? hydroxychloroquine sulfate (HYDROXYCHLOROQUINE ORAL) Take 200 mg by mouth business insight and analytics manager before breakfast 05/24/2019 at Unknown time ??? predniSONE (DELTASONE) 5 mg tablet Take 12.5 mg by mouth daily 05/24/2019 at Unknown time ??? ALPRAZolam (XANAX) 0.25 mg tablet Take 0.25 mg by mouth 3 (three) times a day as needed 05/23/2019 at Unknown time Allergies Allergen Reactions ??? Methylprednisolone Anaphylaxis and Syncope Syncope Social History Tobacco Use ??? Smoking status: Never Smoker ??? Smokeless tobacco: Never Used Substance Use Topics ??? Alcohol use: Not Currently Family History Problem Relation Age of Onset ??? Gout Mother ??? Heart disease Father ??? Stroke Father Review of Systems: 1. Constitutional Denies: weight loss, weight gain, fever, chills, night sweats, fatigue 2. Eyes Denies: change in vision, double vision, eye pain, eye discharge, icterus 3. ENT Denies: change in hearing, ear pain, ear discharge, nose bleed, nasal congestion, sore throat 4. Respiratory Positive for cough Denies: SOB, wheezing, sputum, hemoptysis 5. CV Denies: chest pain, palpitations, syncope, edema, dyspnea 6. GI Positive for nausea vomiting and diarrhea Denies: abdominal pain, decreased appetite, constipation, melena, BRBPR 7. Positive for brown spotting and possibly miscarriage Denies: dysuria, frequency, hematuria, nocturia, urgency 8. Metabolic Denies: cold intolerance, heat intolerance, polyphagia, polydipsia 9. Neurologic Denies: headache, dizziness, seizure, change in mental status, focal weakness, focal numbness 10. Musculoskeletal Positive for chronic bilateral small joint pain and swelling Denies: myalgia, joint pain, joint redness, joint swelling, extremity pain 11. Hematologic Denies: bleeding, bruising, hematoma, lymphadenopathy, icterus OBJECTIVE Vitals: Arrival Vitals [05/24/19 1020] Temp 36.6 ??C (97.9 ??F) Pulse 116 Resp 18 BP 118/91 SpO2 100 % Temp src Temporal Heart Rate Source Patient Position BP Location FiO2 (%) 24hr Min/Max: Temp Min: 36.6 ??C (97.9 ??F) Max: 36.9 ??C (98.4 ??F) Pulse Min: 104 Max: 139 BP Min: 118/80 Max: 148/88 Resp Min: 15 Max: 30 SpO2 Min: 97 % Max: 100 % Most Recent : Vitals: 05/24/19 1420 BP: 129/93 Pulse: 112 Resp: 20 Temp: 36.9 ??C (98.4 ??F) SpO2: 100% No intake or output data in the 24 hours ending 05/24/19 1558 Physical exam: Eyes: EOMI, ANN MARIE, sclare non icteric Neck: supple, no nuchal ridigity, no gross carotid bruits appreciated Pharynx: No gross oral lesion, tongue midline, mucosa moist Lungs coarse respiration bilaterally Heart: [id number], no murmur or gallop Abd: +BS, Non Tender, Non distended, No gross hepatomegaly Lower Ext: No gross edema Neuro: No new gross deficits appreciated Musculoskeletal: no gross joint erythema, edema, tenderness Genitourinary deferred Skin: No change Lab/Radiology/Diagnostic Review: Recent Results (from the past 24 hour(s)) Urinalysis reflex to microscopic and culture Urine, clean voided Collection Time: 05/24/19 10:33 AM Result Value Ref Range Color, ur Yellow Yellow Clarity, ur Turbid (A) Clear Specific gravity, ur 1.032 (H) 1.010 - 1.025 pH, urine 6.0 Protein, ur ql 2+ (A) Negative Glucose, ur ql Negative Negative Ketones, ur Negative Negative Bilirubin, ur Negative Negative Blood, ur 2+ (A) Negative Urobilinogen, ur <2.0 <2.0 mg/dL Nitrite, ur Negative Negative Leukocyte esterase, ur Negative Negative UA reflex comment Reflex to microscopic UA will be performed. Urinalysis, microscopic only Collection Time: 05/24/19 10:33 AM Result Value Ref Range WBC, ur 6-10 (A) 0 - 5 /HPF RBC, ur 6-10 (A) 0 - 2 /HPF Epithelial cells, squamous, ur 11-20 (A) 0 - 5 /HPF Bacteria, ur 4+ (A) Mucous, ur Present (A) Hyaline casts, ur 6-10 0 - 10 /LPF Culture Reflex Comment Reflex conditions for urine culture (WBC >10) not met. Influenza A/B and RSV PCR Nasopharyngeal Collection Time: 05/24/19 11:25 AM Result Value Ref Range Influenza A RNA Not Detected Not Detected Influenza B RNA Not Detected Not Detected RSV RNA Not Detected Not Detected CBC with auto differential Collection Time: 05/24/19 11:29 AM Result Value Ref Range WBC 6.5 3.8 - 9.9 K/cumm Hgb 11.6 (L) 11.9 - 15.5 g/dL Hct 36.5 35.6 - 45.5 % Plt 285 150 - 400 K/cumm MPV 9.2 9.1 - 12.3 fL RBC 3.99 3.90 - 5.20 M/cumm MCV 91.5 81.3 - 96.4 fL MCH 29.1 27.1 - 33.3 pg MCHC 31.8 (L) 32.3 - 35.7 g/dL RDW CV 14.6 11.1 - 14.9 % RDW SD 47.5 35.7 - 48.1 fL NRBC abs 0.00 0.00 - 0.01 K/cumm Comprehensive metabolic panel Collection Time: 05/24/19 11:29 AM Result Value Ref Range Sodium 139 135 - 145 mmol/L Potassium, pl 4.1 3.3 - 4.9 mmol/L Chloride 102 97 - 110 mmol/L CO2 24 22 - 32 mmol/L Anion gap 13 2 - 15 mmol/L BUN 12 8 - 25 mg/dL Creatinine 0.65 0.60 - 1.10 mg/dL Glucose 94 70 - 199 mg/dL Calcium 9.9 8.5 - 10.3 mg/dL Bilirubin, total 0.3 0.1 - 1.2 mg/dL Protein, pl 7.7 6.5 - 8.5 g/dL Albumin 4.5 3.5 - 5.0 g/dL Alk phos 44 40 - 130 Units/L ALT 26 7 - 45 Units/L AST 26 10 - 45 Units/L hCG, blood, quantitative Collection Time: 05/24/19 11:29 AM Result Value Ref Range hCG, quant 246.0 (H) 0.0 - 5.0 IUnits/L Erythrocyte sedimentation rate Collection Time: 05/24/19 11:29 AM Result Value Ref Range Erythrocyte sedimentation rate 25 (H) 1 - 20 mm/hr Sepsis Lactate w/ Reflex Collection Time: 05/24/19 11:29 AM Result Value Ref Range Sepsis Lactate 1.5 0.7 - 2.0 mmol/L CRP (acute phase) Collection Time: 05/24/19 11:29 AM Result Value Ref Range C-RP 13.8 (H) <=10.0 mg/L eGFR Collection Time: 05/24/19 11:29 AM Result Value Ref Range GFR 122 mL/min/1.73 m2 Manual Differential Collection Time: 05/24/19 11:29 AM Result Value Ref Range Differential Manual Cells Counted 100 Neutrophil abs 6.0 1.7 - 6.5 K/cumm Lymphocyte abs 0.3 (L) 0.8 - 3.3 K/cumm Monocyte abs 0.1 (L) 0.2 - 0.8 K/cumm Eosinophil abs 0.1 0.0 - 0.5 K/cumm Basophil abs 0.1 0.0 - 0.1 K/cumm Neutrophil pct 91.0 % Lymphocyte pct 4.0 % Monocyte pct 2.0 % Eosinophil pct 1.0 % Basophil pct 1.0 % Variant lymphs 1.0 (H) 0.0 - 0.0 % RBC morphology Normal Platelet estimate Adequate Xr Chest 1 View Result Date: 05/24/2019 Narrative: PROCEDURE INFORMATION: Exam: XR Chest, 1 View Exam date and time: 05/24/2019 11:04 AM Age: 29 years old Clinical indication: Patient HX: Tachycardia; SOB, ? covid, early miscarriage suspected. Body aches and cough; Additional info: Tachycardia; SOB, ? covid, early misscariage suspect TECHNIQUE: Imaging protocol: XR of the chest Views: 1 view. COMPARISON: CR XR CHEST PA LATERAL 2 VIEWS 03/18/2019 12:02 PM FINDINGS: Lungs: There is no focal pulmonary consolidation. Pleural space: There are no pleural effusions present. There is no evidence of pneumothorax. Heart/Mediastinum: The cardiac silhouette is within normal limits. Bones/joints: The visualized bones demonstr ate no acute abnormalities. IMPRESSION: No acute cardiopulmonary disease. THIS DOCUMENT HAS BEEN ELECTRONICALLY SIGNED BY JACQUIE MARSHALL MD Current Facility-Administered Medications Medication Dose Route Frequency Provider Last Rate Last Dose ??? albuterol HFA (PROVENTIL HFA,VENTOLIN HFA,PROAIR HFA) 90 mcg/actuation inhaler 2 puff 2 puff inhalation Q6H PRN (RT) Yvette Ansari MD ??? ALPRAZolam (XANAX) tablet 0.25 mg 0.25 mg oral TID PRN Yvette Ansari MD ??? folic acid (FOLVITE) tablet 1 mg 1 mg oral Daily Yvette Ansari MD ??? hydroxychloroquine (PLAQUENIL) tablet 100 mg 100 mg oral Nightly Negro Campos MD ??? [START ON 05/25/2019] hydroxychloroquine (PLAQUENIL) tablet 200 mg 200 mg oral Daily - 0600 Negro Campos MD ??? [START ON 05/25/2019] predniSONE (DELTASONE) tablet 5 mg 5 mg oral Daily Yvette Ansari MD A/P 1. Cough and body ache, ED physician suspected COVID-19. Test is pending. She is in isolation. Natalee follow with results. Patient is already on Plaquenil but the smaller does. I do not think patienta necessarily need COVID -19 treatment at this point. Chest X x-ray clear, she does not have significant cough all the time I was in the room she did not have any cough, lung sounds coarse but otherwise no crackles rales or wheezing. She did not have fever have mild lymphopenia but white cells are within normal limits. S 2. Systemic lupus erythematosus, will continue Plaquenil and small dose of prednisone. 3. Nausea vomiting diarrhea, could be the secondary to some viral syndrome and also possibility of COVID-19. Will continue symptomatic treatment. If she continues nausea vomiting then will start IV fluids. 4. Miscarriage suspected. The hCG was positive. She thinks she has 4-6 week . But she is also sure that she is having a miscarriage. Will monitor she is stable and hemoglobin is stable does not have any abdominal pain or excessive blood or clots. 5. Code status full code Moderate complexity On spent to stay to exceed 2 midnight Spent 50 minutes Service: Hospitalists Active Problems: Cough Lupus (CMS/HCC) Miscarriage Diarrhea of presumed infectious origin Resolved Problems: No resolved hospital problems. Yvette Ansari MD Date of Service: 05/24/2019 documented in this encounter Nursing Notes * Rima Barton RN - 05/25/2019 4:49 PM CDT Reviewed discharge instructions with patient answered all questions. All personal be longings discharged with patient. To curbside per wheelchair where picked patient up. documented in this encounter ED Notes * Jorge Arriaga MD - 05/24/2019 10:25 AM CDT HPI Chief Complaint Patient presents with ??? COVID-19 EVALUATION 10:17 AM 05/24/2019 29 y/o female with a PMHx of Lupus, anemia, CKD, fibromyalgia and depression presents to ED for [facility]. Patient states that she has been experiencing diarrhea, myalgias, inability to eat, persistent cough and emesis for the past few days. Notes that she was currently for what she believes wasaround 4 weeks time. Patient scheduled to received COVID swab in 4 days. No modifying or alleviating factors. No other complaints noted at this time. Patient History Patient Active Problem List Diagnosis Date Noted ??? Cough 05/24/2019 ??? Lupus (CMS/HCC) 05/24/2019 [...] pain, rhinorrhea, sneezing and sore throat. Respiratory: Positive for cough. Negative for shortness of breath and wheezing. Cardiovascular: Negative [...] Triage Vitals Temp Pulse Resp BP SpO2 05/24/19 1020 05/24/19 1020 05/24/19 1020 05/24/19 1020 05/24/19 1020 36.6 ??C (97.9 ??F) 116 18 118/91 100 % Temp src Heart Rate Source Patient Position BP Location FiO2 (%) 05/24/19 1020 -- -- 05/24/191935 -- Temporal Right arm Physical Exam Vitals signs and nursing note reviewed. Constitutional: General: She is not in acute distress. Appearance: She is well-developed. Comments: Very anxious but well appearing female speaking in full sentences. HENT: Head: Normocephalic and atraumatic. Comments: Face symmetric. Mouth/Throat: Mouth: Mucous membranes are moist. Comments: Speech clear and fluent. Eyes: Conjunctiva/sclera: Conjunctivae normal. Right eye: Right conjunctiva is not injected. Left eye: Left conjunctiva is not injected. Comments: Conjunctiva clear. No injection. Neck: Musculoskeletal: Normal range of motion and neck supple. Vascular: No JVD. Cardiovascular: Rate and Rhythm: Regular rhythm. Tachycardia present. Heart sounds: Normal heart sounds. No murmur. No friction rub. No gallop. Comments: Peripheral pulses are 2+. Pulmonary: Effort: Pulmonary effort is normal. No respiratory distress. Breath sounds: Normal breath sounds. No wheezing or rales. Comments: Good airflow. Abdominal: General: There is no distension. Palpations: Abdomen is soft. Tenderness: There is no abdominal tenderness. There is no right CVA tenderness, left CVA tenderness, guarding or rebound. Musculoskeletal: Normal range of motion. General: No tenderness or deformity. Comments: No calf pain. Skin: General: Skin is warm and dry. Capillary Refill: Capillary refill takes less than 2 seconds. Coloration: Skin is not pale. Findings: No erythema or rash. Neurological: Mental Status: She is alert and oriented to person, place, and time. Comments: Non-focal. Psychiatric: Behavior: Behavior normal. Procedures BP 121/71 (BP Location: Right arm) Pulse 104 Temp 36.4 ??C (97.6 ??F) (Temporal) Resp 20 Ht167.6 cm (5' 6 ) Wt 69.9 kg (154 lb) LMP 01/17/2019 SpO2 100% BMI 24.86 kg/m?? Labs Reviewed URINALYSIS AND REFLEX TO MICROSCOPIC AND CULTURE - Abnormal Result Value Color, ur Yellow Clarity, ur Turbid (*) Specific gravity, ur 1.032 (*) pH, urine 6.0 Protein, ur ql 2+ (*) Glucose, ur ql Negative Ketones, ur Negative Bilirubin, ur Negative Blood, ur 2+ (*) Urobilinogen, ur <2.0 Nitrite, ur Negative [...] tendency for uric acid stone formation. Source: [facility] [employer].Last revised 03-08-2017 CBC WITH AUTO DIFFERENTIAL - Abnormal WBC 6.5 Hgb 11.6 (*) Hct 36.5 Plt 285 MPV 9.2 RBC 3.99 MCV 91.5 MCH 29.1 MCHC 31.8 (*) RDW CV 14.6 RDW SD 47.5 NRBC abs 0.00 HCG, BLOOD, QUANTITATIVE - Abnormal hCG, quant 246.0 (*) ERYTHROCYTE SEDIMENTATION RATE - Abnormal Erythrocyte sedimentation rate 25 (*) CRP (ACUTE PHASE) - Abnormal C-RP 13.8 (*) URINALYSIS, MICROSCOPIC ONLY - Abnormal WBC, ur 6-10 (*) RBC, ur 6-10 (*) Epithelial cells, squamous, ur 11-20 (*) Bacteria, ur 4+ (*) Mucous, ur Present (*) Hyaline casts, ur 6-10 Culture Reflex Comment Value: Reflex conditions for urine culture (WBC >10) not met. MANUAL DIFFERENTIAL - Abnormal Differential Manual Cells Counted 100 Neutrophil abs 6.0 Lymphocyte abs 0.3 (*) Monocyte abs 0.1 (*) Eosinophil abs 0.1 Basophil abs 0.1 Neutrophil pct 91.0 Lymphocyte pct 4.0 Monocyte pct 2.0 Eosinophil pct 1.0 Basophil pct 1.0 Variant lymphs 1.0 (*) RBC morphology Normal Platelet estimate Adequate INFLUENZA A/B AND RSV PCR Influenza A RNA Not Detected Influenza B RNA Not Detected RSV RNA Not Detected Narrative: This test is performed using the [facility] [employer] Xpert Flu/RSV Assay. This is a multiplex, real-time reverse transcriptase PCR assay that detects influenza A, influenza B, and respiratory syncytial virus RNA. This assay has been cleared by the US Food and Drug Administration, and its performance characteristics have been verified by the [facility]. This test is performed using the [facility] [employer] Xpert Flu/RSV Assay. This is a multiplex, real-time reverse transcriptase PCR assay that detects influenza A, influenza B, and respiratory syncytial virus RNA. This assay has been cleared by the US Food and Drug Administration, and its performance characteristics have been verified by the [facility]. BLOOD CULTURE COVID-19 CORONAVIRUS RNA C. DIFFICILE TESTING COMPREHENSIVE METABOLIC PANEL Sodium 139 Potassium, pl 4.1 Chloride 102 CO2 24 Anion gap 13 BUN 12 Creatinine 0.65 Glucose 94 Calcium 9.9 Bilirubin, total 0.3 Protein, pl 7.7 Albumin 4.5 Alk phos 44 ALT 26 AST 26 SEPSIS LACTATE WITH REFLEX Sepsis Lactate 1.5 EGFR GFR 122 PRO B-TYPE NATRIURETIC PEPTIDE NT-proBNP 23 Narrative: Please use the blood in the lab if okay BASIC METABOLIC PANEL CBC WITH AUTO DIFFERENTIAL XR Chest 1 View Final Result [facility] ED Course as of May 24 2019 Time: 05/23 1024 Comment: Informed patient that covid swab is currently only available to admitted patients. By: Kade Elkins Time: 05/23 1039 Comment: Pt has been [facility] several times same complaints. Scheduled for covid test Wed. 100% sats room air. By: Jorge Arriaga MD Time: 05/23 1136 Comment: Informed patient of XR findings and recommendation for admission. Patient agreeable to plan. By: Kade Elkins Time: 05/23 1243 Comment: On 05/21 Quant was 346. On 05/18 Quant was 424 Today 246. Non viable fetus 1st trimester By: Jorge Arriaga MD Time: 05/23 1307 Comment: Presentation, lab and imaging findings discussed with Dr. Campos, hospitalist, who acceptspatient for admission. By: Kade Elkins Final diagnoses: Tachycardia Acute viral syndrome Lupus (CMS/HCC) On prednisone therapy Suspected Covid-19 Virus Infection Spontaneous miscarriage This note is prepared by Kade Elkins acting as a scribe for Jorge Arriaga MD. I electronically signed this note at 8:20 PM on 05/24/2019. I, Jorge Arriaga MD., have personally performed the services described in the documentation, reviewed the documentation, as recorded by the scribe in my presence, and it accurately and completely records my words and actions. Jorge Arriaga MD 05/24/192019 * Christina Bal RN - 05/24/2019 10:18 AM CDT Pt to the ED with complaints of N/V/D, body aches, cough, and states she is 6 weeks and has been seeing a brown substance for the last three days, denies any bleeding or clots. States she was seen at [facility] on the and was told she may have COVID, states she is scheduled for testing at [facility] this next Sun. documented in this encounter Miscellaneous Notes * Plan of Care - Rima Barton RN - 05/25/2019 4:31 PM CDT Goals: Clinical Goals for the Shift: pt. c/o inability to sleep, xanax given. Summary: discharge today * Plan of Care - Rima Barton RN - 05/25/2019 3:07 PM CDT Goals: Clinical Goals for the Shift: pt. c/o inability to sleep, xanax given. Summary: VSS, free from falls/injury keep patient updated on test results. * Plan of Care - Caitlin Majano RN - 05/25/2019 5:50 AM CDT Problem: Health Behavior: Goal: Understanding of discharge needs will improve Outcome: Progressing Problem: Respiratory Goal: Achieves optimal ventilation and oxygenation Description: INTERVENTIONS: 1. Assess for changes in respiratory status 2. Assess for changes in mentation and behavior 3. Position to facilitate oxygenation and minimize respiratory effort 4. Oxygen supplementation based on oxygen saturation or ABGs 5. Initiate Smoking cessation Protocol as indicated 6. Encourage broncho-pulmonary hygiene including cough, deep breathe, Incentive Spirometry 7. Assess the need for suctioning and suction as needed 8. Assess and instruct to report SOB or any respiratory difficulty Outcome: Progressing Goals: Clinical Goals for the Shift: pt. c/o inability to sleep, xanax given. Summary: after taking tylenol headache relieved and pt was able to sleep. Awoke this morning feeling a little nauseated. But requested another dose of tylenol, given. Anxious about the results of hercovid 19, no report available yet. Anticipate discharge possibly today, no resp. Distress. * Plan of Care - Мария Lee RN - 05/24/2019 2:32 PM CDT Goals: Maintain safety, maintain resp status on RA, admit this shift and monitor Summary: Patient admitted this shift documented in this encounter Plan of Treatment Not on file documented as of this encounter Procedures Procedure Name Priority Date/Time Associated Diagnosis Comments C. DIFFICILE TESTING Routine 05/25/2019 8:28 AM CDT EGFR Routine 05/25/2019 4:55 AM CDT DIFFERENTIAL AUTO Routine 05/25/2019 4:5 5 AM CDT CBC WITH AUTO DIFFERENTIAL Routine 05/25/2019 4:55 AM CDT BASIC METABOLIC PANEL Routine 05/25/2019 4:55 AM CDT SEPSIS LACTATE WITH REFLEX Routine 05/24/2019 11:29 AM CDT EGFR STAT 05/24/2019 11:29 AM CDT PRO B-TYPE NATRIURETIC PEPTIDE Routine 05/24/2019 11:29 AM CDT CBC WITH AUTO DIFFERENTIAL STAT 05/24/2019 11:29 AM CDT MANUAL DIFFERENTIAL STAT 05/24/2019 1 1:29 AM CDT BLOOD CULTURE STAT 05/24/2019 11:29 AM CDT ERYTHROCYTE SEDIMENTATION RATE STAT 05/24/2019 11:29 AM CDT CRP (ACUTE PHASE) STAT 05/24/2019 11: 29 AM CDT HCG, BLOOD, QUANTITATIVE STAT 05/24/2019 11:29 AM CDT COMPREHENSIVE METABOLIC PANEL STAT 05/24/2019 11:29 AM CDT COVID-19 CORONAVIRUS RNA STAT 05/24/2019 11:25 AM CDT INFLUENZA A/B AND RSV PCR STAT 05/24/2019 11:25 AM CDT XR CHEST 1 VIEW ED 05/24/2019 11:08 AM CDT URINALYSIS AND REFLEX TO MICROSCOPIC AND CULTURE STAT 05/24/2019 10:33 AM CDT URINALYSIS, MICROSCOPIC ONLY STAT 05/24/2019 10:33 AM CDT documented in this encounter Results * C. difficile testing Stool (05/25/2019 8:28 AM CDT) C. diff result Negative, free toxin Negative , free toxin [facility] ([place]) C. diff interp Negative for toxigenic Clostridioides (Clostridium) difficile. Analysis was performed using an enzyme immunoassay that detects C. difficile toxin(s) in feces. [facility] ([place]) Stool 05/25/2019 8:28 AM CDT 05/25/2019 8:34 AM CDT Yvette Ansari MD LAB MICROBIOLOGY - GENERAL OR DERABLES Final Result [facility] ([place]) 1 [facility] Department [place] [address] * eGFR (05/25/2019 4:55 AM CDT) eGFR 127 mL/min/1.7 3 m2 [facility] ([place]) Comment: Interpretive Data Reference Interval Normal ?>/= 90 mL/min/1.73m2 Mildly decreased* ? 60 - 89 mL/min/1.73m2 Mildly to moderately decreased ?45 - 59 mL/min/1.73m2 Moderately to severely decreased ??30 - 44 mL/min/1.73m2 Severely decreased ?15 - 29 mL/min/1.73m2 Kidney Failure ?< 15 ??mL/min/1.73m2 *Relative to young adult level If -Baham[place] multiply value by 1.16. Estimated glomerular filtration [...] was last reviewed 2015. Blood specimen (specimen) 05/25/2019 4:55 AM CDT 05/25/2019 5:06 AM CDT us Yvette Ansari MD LAB BLOOD ORDERABLES Final Re sult [facility] ([place]) 1 [facility] Department [place] [address] * Differential, auto (05/25/2019 4:55 AM CDT) Neutrophil abs 3.8 1.7 - 6.5 K/cumm [facility] ([place]) Imm gran abs 0.0 0.0 - 0.1 K/cumm [facility] ([place]) Lymphocyte abs 0.8 0.8 - 3.3 K/cumm [facility] ([place]) Monocyte abs 0.3 0.2 - 0.8 K/cumm [facility] ([place]) Eosinophil abs 0.1 0.0 - 0.5 K/cumm [facility] ([place]) Basophil abs 0.0 0.0 - 0.1 K/cumm [facility] ([place]) Neutrophil pct 75.9 % [facility] ([place]) Comment: Interpretive [...] was last revised on 2017. Lymphocyte pct 16.0 % [facility] ([place]) Comment: Interpretive Data Percent cell count reference ranges are not reported, since discordance with absolute values may lead to misinterpretation of CBC data. Current Interpretive Data was last revised on 2017. Monocyte pct 6.3 % [facility] ([place]) Comment: Interpretive Data [...] last revised on 2017. Blood specimen (specimen) 05/25/2019 4:55 AM CDT 05/25/2019 5:06 AM CDT us Yvette Ansari MD LAB BLOOD ORDERABLES Final Re sult [facility] ([place]) 1 [facility] Department [place] [address] * (ABNORMAL) CBC with auto differential (05/25/2019 4:55 AM CDT) WBC 5.0 3.8 - 9.9 K/cumm [facility] ([place]) Hgb 11.4(L) 11.9 - 15.5 g/dL [facility] ([place]) Hct 35.7 35.6 - 45.5 % [facility] ([place]) Plt 307 150 - 400 K/cumm [facility] ([place]) MPV 9.0(L) 9.1 - 12.3 fL [facility] ([place]) RBC 4.09 3.90 - 5.20 M/cumm [facility] ([place]) MCV 87.3 81.3 - 96.4 fL [facility] ([place]) MCH 27.9 27.1 - 33.3 pg [facility] ([place]) MCHC 31.9(L) 32.3 - 35.7 g/dL [facility] ([place]) RDW CV 14.4 11.1 - 14.9 % [facility] ([place]) RDW SD 45.5 35.7 - 48.1 fL [facility] ([place]) NRBC abs 0.00 0.00 - 0.01 K/cumm [facility] ([place]) Blood specimen (specimen) 05/25/2019 4:55 AM CDT 05/25/2019 5:06 AM CDT us Yvette Ansari MD LAB BLOOD ORDERABLES Final Re sult [facility] ([place]) 1 [facility] Department [place] [address] * (ABNORMAL) Basic metabolic panel (05/25/2019 4:55 AM CDT) Sodium 138 135 - 145 mmol/L [facility] ([place]) Potassium, pl 4.1 3.3 - 4.9 mmol/L [facility]) Chloride 103 97 - 110 mmol/L [facility] ([place]) CO2 22 22 - 32 mmol/L [facility] ([place]) Anion gap 13 2 - 15 mmol/L [facility] BUN 14 8 - 25 mg/dL [facility]) Creatinine 0.57(L) 0.60 - 1.10 mg/dL [facility] ([place]) Glucose 97 70 - 199 mg/dL [facility] ([place]) Comment: Interpretive Data Fasting [...] 2017. Calcium 9.5 8.5 - 10.3 mg/dL [facility] ([place]) Blood specimen (specimen) 05/25/2019 4:55 AM CDT 05/25/2019 5:06 AM CDT us Yvette Ansari MD LAB BLOOD ORDERABLES Final Re sult [facility] ([place]) 1 [facility] Department [place] [address] * Pro B-type natriuretic peptide (05/24/2019 11:29 AM CDT) NT-proBNP 23 <=300 pg/mL [facility] ([place]) Comment: Interpretive Comments: A. Dyspnea in Acute [...] as advanced age. - References: 1. Zackary PROCTOR et.al. Eur Heart J. 2006:27:330-337. 2. Yvan EMERSON, Anne JOSEPH. J. AM Hema Cardiol: Cardiovasc Imag. 2009;2: 216- 225. Interpretive Data Last Revised Date: 2017. Blood specimen (specimen) 05/24/2019 11:29 AM CDT 05/24/2019 4:08 PM CDT Narrative [facility] ([place]) - 05/24/2019 4:31 PM CDT Please use the blood in the lab if okay us Yvette Ansari MD LAB BLOOD ORDERABLES Final Re sult [facility] ([place]) 1 [facility] Department [place] [address] * (ABNORMAL) Manual Differential (05/24/2019 11:29 AM CDT) Differential Manual [facility] ([place]) Cells Counted 100 [facility] ([place]) Neutrophil abs 6.0 1.7 - 6.5 K/cumm [facility] ([place]) Lymphocyte abs 0.3(L) 0.8 - 3.3 K/cumm [facility] ([place]) Monocyte abs 0.1(L) 0.2 - 0.8 K/cumm [facility] ([place]) Eosinophil abs 0.1 0.0 - 0.5 K/cumm [facility] ([place]) Basophil abs 0.1 0.0 - 0.1 K/cumm [facility] ([place]) Neutrophil pct 91.0 % [facility] ([place]) Comment: Interpretive Data Percent cell count reference ranges are not reported, since discordance with absolute values may lead to misinterpretation of CBC data. Current Interpretive Data was last revised on 2017. Lymphocyte pct 4.0 % [facility] ([place]) Comment: Interpretive Data Percent cell count reference ranges are not reported, since discordance with absolute values may lead to misinterpretation of CBC data. Current Interpretive Data was last revised on 2017. Monocyte pct 2.0 % [facility] ([place]) Comment: Interpretive Data [...] was last revised on 2017. Basophil pct 1.0 % [facility] ([place]) Comment: Interpretive Data Percent cell count reference ranges are not reported, since discordance with absolute values may lead to misinterpretation of CBC data. Current Interpretive Data was last revised on 2017. Variant lymph pct 1.0(H) 0.0 - 0.0 % [facility] ([place]) RBC morphology Normal [facility] ([place]) Platelet estimate Adequate [facility] ([place]) Blood specimen (specimen) 05/24/2019 11:29 AM CDT 05/24/2019 11:49 AM CDT Jorge Arriaga MD LAB BLOOD ORDERABLES Final Result [facility] ([place]) 1 [facility] Department [place] [address] * eGFR (05/24/2019 11:29 AM CDT) eGFR 122 mL/min/1.7 3 m2 [facility] ([place]) Comment: Interpretive Data Reference Interval Normal ?>/= 90 mL/min/1.73m2 Mildly decreased* ? 60 - 89 mL/min/1.73m2 Mildly to moderately decreased ?45 - 59 mL/min/1.73m2 Moderately to severely decreased ??30 - 44 mL/min/1.73m2 Severely decreased ?15 - 29 mL/min/1.73m2 Kidney Failure ?< 15 ??mL/min/1.73m2 *Relative to young adult level If -Baham[place] multiply value by 1.16. Estimated glomerular filtration [...] was last reviewed 2015. Blood specimen (specimen) 05/24/2019 11:29 AM CDT 05/24/2019 11:49 AM CDT Jorge Arriaga MD LAB BLOOD ORDERABLES Final Result [facility] ([place]) 1 [facility] Department [place] [address] * Blood culture Blood (05/24/2019 11:29 AM CDT) Report Final Report: No growth [facility] ([place]) Comment:Testing performed by : [facility], 1 [facility] [place]., [address] Blood specimen (specimen) 05/24/2019 11:29 AM CDT 05/24/2019 4:06 PM CDT Narrative [facility] ([place]) - 05/30/2019 7:00 AM CDT 1. Blood cultures are incubated for 5 days on a continuously monitored blood culture system. The first report of a negative culture is issued within 24 hours of receipt of the specimen in the laboratory. 2. Positive culture results are reported as soon as they are detected. 3. The most important factor for detection of microbes [...] recommended for each blood culture set. 4. For blood cultures with Gram-positive cocci, a rapid molecular test for organism identification may be performed using the [employer] Gram-Positive Blood Culture Assay. This assay detects microbial DNA in positive blood culture broth via hybridization of target DNA to capture oligonucleotides on a microarray. This assay has been cleared by the [place] Food and Drug Administration and its performance characteristics have been verified by the [facility]. 5. For questions about this culture, contact the Microbiology Laboratory at [phone]. Interpretive data was last revised on 2017. Jorge Arriaga MD LAB MICROBIOLOGY - GENERAL ORDERABLES Final Result [facility] ([place]) 1 [facility] [place] [address] * (ABNORMAL) CRP (acute phase) (05/24/2019 11:29 AM CDT) Pathologist [facility] CRP 13.8(H) <=10.0 mg/L [facility] ([place]) Blood specimen (specimen) 05/24/2019 11:29 AM CDT 05/24/2019 11:45 AM CDT Jorge Arriaga MD LAB BLOOD ORDERABLES Final Result [facility] ([place]) 1 [facility] [place] [address] * Sepsis Lactate w/ Reflex (05/24/2019 11:29 AM CDT) Sepsis Lactate 1.5 0.7 - 2.0 mmol/L [facility] ([place]) Blood specimen (specimen) 05/24/2019 11:29 AM CDT 05/24/2019 11:45 AM CDT Jorge Arriaga MD LAB BLOOD ORDERABLES Final Result Performing Organization Address City/[facility]/ZIP Co de Phone Number [facility] ([place]) 1 [facility] [place] [address] * (ABNORMAL) Erythrocyte sedimentation rate (05/24/2019 11:29 AM CDT) Erythrocyte sedimentation rate 25(H) 1 - 20 mm/hr [facility] ([place]) Blood specimen (specimen) 05/24/2019 11:29 AM CDT 05/24/2019 11:45 AM CDT us Jorge Arriaga MD LAB BLOOD ORDERABLES Final Result Performing Organization Address City/[facility] Co de Phone Number [facility] ([place]) [address] [place] [address] [place] [address] * (ABNORMAL) hCG, blood, quantitative (05/24/2019 11:29 AM CDT) hCG, quant 246.0(H) 0.0 - 5.0 IUnits/L [facility] ([place]) Comment: Interpretive Data Non- Female premenopausal: < or = 5.0 IUnits/L Men: < 5.0 IUnits/L Weeks of Gestation ? Reference Interval ?? 3 to 6 ? 5.8-31,795 IUnits/L ?? 7 to 10 ? 3,697-186,977 IUnits/L ??12 to 15 ?27,832- 70,791 IUnits/L ??16 to 18 ? 9,040- 58,179 IUnits/L Current Interpretive Data was last revised on 2017. Blood specimen (specimen) 05/24/2019 11:29 AM CDT 05/24/2019 11:49 AM CDT Jorge Arriaga MD LAB BLOOD ORDERABLES Final Result [facility] ([place]) 1 [facility] Department [place] [address] * Comprehensive metabolic panel (05/24/2019 11:29 AM CDT) Sodium 139 135 - 145 mmol/L [facility] ([place]) Potassium, pl 4.1 3.3 - 4.9 mmol/L [facility] ([place]) Chloride 102 97 - 110 mmol/L [facility] ([place]) CO2 24 22 - 32 mmol/L [facility] ([place]) Anion gap 13 2 - 15 mmol/L [facility] ([place]) BUN 12 8 - 25 mg/dL [facility] ([place]) Creatinine 0.65 0.60 - 1.10 mg/dL [facility] ([place]) Glucose 94 70 - 199 mg/dL [facility] ([place]) [...] interpretive data was last revised 2017. Calcium 9.9 8.5 - 10.3 mg/dL [facility] ([place]) Bilirubin, total 0.3 0.1 - 1.2 mg/dL [facility] ([place]) Protein, pl 7.7 6.5 - 8.5 g/dL [facility] ([place]) Albumin 4.5 3.5 - 5.0 g/dL [facility] ([place]) Alk phos 44 40 - 130 Units/L [facility] ([place]) ALT 26 7 - 45 Units/L [facility] ([place]) AST 26 10 - 45 Units/L [facility] ([place]) Blood specimen (specimen) 05/24/2019 11:29 AM CDT 05/24/2019 11:45 AM CDT us Jorge Arriaga MD LAB BLOOD ORDERABLES Final Result [facility] ([place]) 1 [facility] [place] [address] * (ABNORMAL) CBC with auto differential (05/24/2019 11:29 AM CDT) WBC 6.5 3.8 - 9.9 K/cumm [facility] ([place]) Hgb 11.6(L) 11.9 - 15.5 g/dL [facility] ([place]) Hct 36.5 35.6 - 45.5 % [facility] ([place]) Plt 285 150 - 400 K/cumm [facility] ([place]) MPV 9.2 9.1 - 12.3 fL [facility] ([place]) RBC 3.99 3.90 - 5.20 M/cumm [facility] ([place]) MCV 91.5 81.3 - 96.4 fL [facility] ([place]) MCH 29.1 27.1 - 33.3 pg [facility] ([place]) MCHC 31.8(L) 32.3 - 35.7 g/dL [facility] ([place]) RDW CV 14.6 11.1 - 14.9 % [facility] ([place]) RDW SD 47.5 35.7 - 48.1 fL [facility] ([place]) NRBC abs 0.00 0.00 - 0.01 K/cumm [facility] ([place]) Blood specimen (specimen) 05/24/2019 11:29 AM CDT 05/24/2019 11:45 AM CDT us Jorge Arriaga MD LAB BLOOD ORDERABLES Final Result Performing Organization Address City/[facility]/ZIP Co de Phone Number [facility] ([place]) 1 [facility] [place] [address] * Influenza A/B and RSV PCR Nasopharyngeal (05/24/2019 11:25 AM CDT) Influenza A RNA Not Detected Not Detected [facility] ([place]) Influenza B RNA Not Detected Not Detected [facility] ([place]) RSV RNA Not Detected Not Detected [facility] ([place]) Nasopharyngeal 05/24/2019 11 :25 AM CDT 05/24/2019 11:31 AM CDT Narrative [facility] ([place]) - 05/24/2019 12:04 PM CDT This test is performed using the [employer] Xpert Flu/RSV Assay. This is a multiplex, real-time reverse transcriptase PCR assay that detects influenza A, influenza B, and respiratory syncytial virus RNA. This assay has been cleared by the [place] Food and Drug Administration, and its performance characteristics have been verified by the [facility]. ??This test is performed using the [employer] Xpert Flu/RSV Assay. This is a multiplex, real-time reverse transcriptase PCR assay that detects influenza A, influenza B, and respiratory syncytial virus RNA. This assay has been cleared by the [place] Food and Drug Administration, and its performance characteristics have been verified by the [facility]. Jorge Arriaga MD LAB MICROBIOLOGY - GENERAL ORDERABLES Final Result [facility]) 1 [facility] Department [place] [address] * COVID-19 Coronavirus RNA Nasopharyngeal (05/24/2019 11:25 AM CDT) COVID-19 RNA Not Detected [facility] ([place]) Comment: Interpretive Data Testing performed at [facility]. The 2019-Novel Coronavirus [...] Interpretive Data was last revised on 2019. Testing performed by: [facility], [address] [facility], [place]., [address] Nasopharyngeal 05/24/2019 11 :25 AM CDT 05/24/2019 3:39 PM CDT Jorge Arriaga MD LAB MICROBIOLOGY - GENERAL ORDERABLES Final Result [facility] ([place]) 1 [facility] Department [place] [address] * XR Chest 1 View (05/24/2019 11:08 AM CDT) Anatomical Region Laterality Modality Body, Chest N/A Computed Radiogr aphy 05/24/2019 11:0 4 AM CDT Narrative 05/24/2019 11:54 AM CDT PROCEDURE INFORMATION: Exam: XR Chest, 1 View Exam date and time: 05/24/2019 11:04 AM Age: 29 years old Clinical indication: Patient HX: Tachycardia; SOB, ? covid, early miscarriage suspected. Body aches and cough; Additional info: Tachycardia; SOB, ? covid, early misscariage suspect TECHNIQUE: Imaging protocol: XR of the chest Views: 1 view. COMPARISON: CR XR CHEST PA LATERAL 2 VIEWS 03/18/2019 12:02 PM FINDINGS: Lungs: There is no focal pulmonary consolidation. Pleural space: There are no pleural effusions present. There is no evidence of pneumothorax. Heart/Mediastinum: The cardiac silhouette is within normal limits. Bones/joints: The visualized bones demonstrate no acute abnormalities. IMPRESSION: No acute cardiopulmonary disease. THIS DOCUMENT HAS BEEN ELECTRONICALLY SIGNED BY JACQUIE MARSHALL MD Procedure Note Jacquie Marshall MD - 05/24/2019 PROCEDURE INFORMATION: Exam: XR Chest, 1 View Exam date and time: 05/24/2019 11:04 AM Age: 29 years old Clinical indication: Patient HX: Tachycardia; SOB, ? covid, earlypregnancy miscarriage suspected. Body aches and cough; Additional info: Tachycardia;SOB, ? covid, early misscariage suspect TECHNIQUE: Imaging protocol: XR of the chest Views: 1 view. COMPARISON: CR XR CHEST PA LATERAL 2 VIEWS 03/18/2019 12:02 PM FINDINGS: Lungs: There is no focal pulmonary consolidation. Pleural space: There are no pleural effusions present. There is noevidence of pneumothorax. Heart/Mediastinum: The cardiac silhouette is within normal limits. Bones/joints: The visualized bones demonstrate no acute abnormalities. IMPRESSION: No acute cardiopulmonary disease. THIS DOCUMENT HAS BEEN ELECTRONICALLY SIGNED BY JACQUIE MARSHALL MD us Jorge Arriaga MD IMG XR PROCEDURES Final Res ult * (ABNORMAL) Urinalysis, microscopic only (05/24/2019 10:33 AM CDT) WBC, ur 6-10(A) 0 - 5 /HPF [facility] ([place]) RBC, ur 6-10(A) 0 - 2 /HPF [facility] ([place]) Epithelial cells, squamous, ur 11-20(A) 0 - 5 /HPF [facility] ([place]) Bacteria, ur 4+(A) [facility] ([place]) Mucous, ur Present(A) [facility] ([place]) Hyaline casts, ur 6-10 0 - 10 /LPF [facility] ([place]) Culture Reflex Comment Reflex conditions for urine culture (WBC >10) not met. [facility] ([place]) Urine, clean voided 05/24/2019 10:33 AM CDT 05/24/2019 10:39 AM CDT Jorge Arriaga MD LAB URINE ORDERABLES Final Result [facility] ([place]) 1 [facility] Department [place] [address] * (ABNORMAL) Urinalysis reflex to microscopic and culture Urine, clean voided (05/24/2019 10:33 AM CDT) Color, ur Yellow Yellow [facility] ([place]) Clarity, ur Turbid(A) Clear [facility] ([place]) Specific gravity, ur 1.032(H) 1.010 - 1.025 [facility] ([place]) pH, urine 6.0 [facility] ([place]) Protein, ur ql 2+(A) [...] Reflex to microscopic [facility]A will be performed. [facility] Urine, clean voided 05/24/2019 10:33 AM CDT 05/24/2019 10:39 AM CDT Narrative [facility] ([place]) - 05/24/2019 10:44 AM CDT ?? Urine pH is affected by diet, medications, systemic acid-base disturbances, and renal tubular function. ??pH may affect urinary stone formation. ??For example, urine pH below 6.0 may help reduce the tendency for calcium phosphate stones and pH greater than 6.0 may reduce the tendency for uric acid stone formation. Source: [facility] [employer]. Last revised 03-08-2017 us Jorge Arriaga MD LAB MICROBIOLOGY - GENERAL ORDERABLES Final Result [facility] ([place]) 1 [facility] Department [place] [address] documented in this encounter Visit Diagnoses Diagnosis Tachycardia- Primary Unspecified tachycardia Tachycardia Unspecified tachycardia Acute viral syndrome Lupus Systemic lupus erythematosus On prednisone therapy Suspected COVID-19 virus infection Spontaneous miscarriage Cough Lupus Systemic lupus erythematosus Miscarriage Unspecified spontaneous without mention of complication Diarrhea of presumed infectious origin documented in this encounter Administered Medications Inactive Administered Medications - up to 3 most recent administrations Medication Order MAR Action Action Date Dose Rate Site acetaminophen (TYLENOL) tablet 650 mg 650 mg, oral, Every 6 hours PRN, 1st line for pain, Starting on 05/24/19 at 2152 Given 05/25/2019 4:55 AM CDT 650 mg Given 05/24/2019 10:16 PM CDT 650 mg ALPRAZolam (XANAX) tablet 0.25 mg 0.25 mg, oral, 3 times daily PRN, anxiety, Starting on 05/24/19 at 1429 Given 05/25/2019 11:31 AM CDT 0.25 mg Given 05/24/2019 7:59 PM CDT 0.25 mg cefTRIAXone (ROCEPHIN) 1,000 mg/10 mL in sterile water (premix) 1,000 mg 1,000 mg, intravenous, at 120 mL/hr, Administer over 5 Minutes, Once, On 05/24/19 at 1334, For 1 dose, Indications: Urinary Tract/Genitourinary InfectionIndications:Urinary Tract/Genitourinary Infection New Bag 05/24/2019 2:04 PM CDT 1,000 mg 1 20 mL/hr chlorhexidine (PERIDEX) 0.12 % solution 15 mL 15 mL, swish & spit, 2 times daily, First dose on 05/25/19 at 1645 folic acid (FOLVITE) tablet 1 mg 1 mg, oral, Daily, First dose on 05/24/19 at 1515, Indications: Folate DeficiencyIndications:Folate Deficiency Given 05/25/2019 10:23 AM CDT 1 mg hydroxychloroquine (PLAQUENIL) tablet 100 mg 100 mg, oral, Nightly, First dose on 05/24/19 at 2100, Administer with food if tolerating a diet. Oral liquid is preferred for per tube administration. Crushed tablets may be administered if oral liquid is unavailable. Please use patients home supply of medication, pharmacy does not carry and we have no automatic substitution., Indications: Connective Tissue DiseaseIndications:Connective Tissue Disease Given 05/24/2019 8:03 PM CDT 100 mg hydroxychloroquine (PLAQUENIL) tablet 200 mg 200 mg, oral, Daily (early AM), First dose on 05/25/19 at 0600, Please use patients home supply of medication, pharmacy does not carry and we have no automatic substitution., Indications: Connective Tissue DiseaseIndications:Connective Tissue Disease Given 05/25/2019 5:01 AM CDT 200 mg LORazepam (ATIVAN) tablet 2 mg 2 mg, oral, Once, On 05/24/19 at 1136, For 1 dose Given 05/24/2019 11:44 AM CDT 2 mg predniSONE (DELTASONE) tablet 10 mg 10 mg, oral, Daily, First dose on 05/25/19 at 1300 Given 05/25/2019 1:39 PM CDT 10 mg predniSONE (DELTASONE) tablet 2.5 mg 2.5 mg, oral, Daily, First dose on 05/25/19 at 1700 predniSONE (DELTASONE) tablet 5 mg 5 mg, oral, Daily, First dose on 05/24/19 at 2100, Indications: autoimmune diseaseIndications:autoimmune disease Given 05/24/2019 8:06 PM CDT 2.5 mg sodium chloride 0.9% bolus 500 mL 500 mL, intravenous, at 166.7 mL/hr, Administer over 3 Hours, Once, On 05/25/19 at 0930, For 1 dose New Bag 05/25/2019 10:00 AM CDT 500 mL 166.7 mL/hr documented in this encounter Discontinued Medications Medication Sig Discontinue Reason Start Date End Da te leflunomide (ARAVA) 10 mg tablet Take 10 mg by mouth daily Therapy completed 05/24/2019 omeprazole (PriLOSEC) 20 mg capsule Take 20 mg by mouth daily Therapy completed 05/24/2019 predniSONE (DELTASONE) 10 mg tablet Take 10 mg by mouth daily Alternate therapy 05/24/2019 ondansetron ODT (ZOFRAN-ODT) 4 mg disintegrating tablet Dissolve 1 tablet for mild to moderate nausea or vomiting or 2 tablets for severe nausea or vomiting oral twice a day as needed. 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 hydroxychloroqui ne (PLAQUENIL) 200 mg tablet Take 100 mg by mouth nightly 0 hydroxychloroqui ne sulfate (HYDROXYCHLOROQU INE ORAL) Take 200 mg by mouth business insight and analytics manager before breakfast 0 folic acid (FOLVITE) 1 mg tabletIndication s:Folate Deficiency Take 1 mg by mouth daily 0 predniSONE (DELTASONE) 5 mg tabletIndication s:autoimmune disease Take 12.5 mg by mouth daily 0 albuterol (PROAIR RESPICLICK) 90 mcg/actuation inhalerIndicatio ns:Acute Asthma Attack Inhale 2 puffs every 6 (six) hours as needed for wheezing 0 added in this encounter Active and Recently Administered Medications Times are shown in CDT. Scheduled Medication Order 05/23/2019 05/24/2019 05/25/2019 cefTRIAXone (ROCEPHIN) 1,000 mg/10 mL in sterile water (premix) 1,000 mg (COMPLETED) 1,000 mg, intravenous, at 120 mL/hr, Administer over 5 Minutes, Once, On 05/24/19 at 1334, For 1 dose, Indications: Urinary Tract/Genitourinary Infection 1404 (New Bag - Provider: Christina Bal, RN)1409 (Due: Stopped - Provider: Christina Bal RN) chlorhexidine (PERIDEX) 0.12 % solution 15 mL 15 mL, swish & spit, 2 times daily, First dose on 05/25/19 at 1645 1645 (Due) folic acid (FOLVITE) tablet 1 mg 1 mg, oral, Daily, First dose on 05/24/19 at 1515, Indications: Folate Deficiency 1637 (Not Given - Provider: Мария Lee RN - Reason: Other - Comment: Took at home) 1023 (Given - Provider: Rima Barton RN) hydroxychloroquine (PLAQUENIL) tablet 100 mg 100 mg, oral, Nightly, First dose on 05/24/19 at 2100, Administer with food if tolerating a diet. Oral liquid is preferred for per tube administration. Crushed tablets may be administered if oral liquid is unavailable. Please use patients home supply of medication, pharmacy does not carry and we have no automatic substitution., Indications: Connective Tissue Disease 2002 (Given - Provider: Caitlin Majano RN - Comment: has no bottle to identify just in pill box) hydroxychloroquine (PLAQUENIL) tablet 200 mg 200 mg, oral, Daily (early AM), First dose on 05/25/19 at 0600, Please use patients home supply of medication, pharmacy does not carry and we have no automatic substitution., Indications: Connective Tissue Disease 0501 (Given - Provid er: Caitlin Majano RN) LORazepam (ATIVAN) tablet 2 mg (COMPLETED) 2 mg, oral, Once, On 05/24/19 at 1136, For 1 dose 1144 (Given - Provider: Christina Bal RN) predniSONE (DELTASONE) tablet 10 mg 10 mg, oral, Daily, First dose on 05/25/19 at 1300 1339 (Given - Provid er: Rima Barton RN) predniSONE (DELTASONE) tablet 2.5 mg 2.5 mg, oral, Daily, First dose on 05/25/19 at 1700 predniSONE (DELTASONE) tablet 5 mg (CANCELED) 5 mg, oral, Daily, First dose on 05/24/19 at 2100, Indications: autoimmune disease 2005 (Given - Provider: Caitlin Majano RN - Comment: this is dose pt takes) sodium chloride 0.9% bolus 500 mL (COMPLETED) 500 mL, intravenous, at 166.7 mL/hr, Administer over 3 Hours, Once, On 05/25/19 at 0930, For 1 dose 1000 (New Bag - Provider: Letty Sanchez, PRO) PRN Medication Order 05/23/2019 05/24/2019 05/25/2019 acetaminophen (TYLENOL) tablet 650 mg 650 mg, oral, Every 6 hours PRN, 1st line for pain, Starting on 05/24/19 at 2152 2216 (Given - Provider: Caitlin Majano RN) 0455 (Given - Provider: Caitlin Majano RN) albuterol HFA (PROVENTIL HFA,VENTOLIN HFA,PROAIR HFA) 90 mcg/actuation inhaler 2 puff 2 puff, inhalation, Every 6 hours PRN (supervisor respiratory), wheezing, Starting on 05/24/19 at 1428, Indications: Acute Asthma Attack ALPRAZolam (XANAX) tablet 0.25 mg 0.25 mg, oral, 3 times daily PRN, anxiety, Starting on 05/24/19 at 1429 1959 (Given - Provider: Caitlin Majano RN) 1131 (Given - Provider: Letty Sanchez, PRO) documented in this encounter Orders Medications Ordered That Omer ht Not Have Been Administered Count Last Ordered Date First Ordered Date chlorhexidine (PERIDEX) 0.12 % solution 15 mL 1 05/25/2019 predniSONE (DELTASONE) tablet 2.5 mg 1 04/27 albuterol HFA (PROVENTIL HFA ,VENTOLIN HFA,PROAIR HFA) 90 mcg/actuation inhaler 2 puff 1 05/24/2019 oxyCODONE-acetaminophen (PER COCET) 5-325 mg per tablet 1 tablet 1 05/24/2019 Diet Count Last Ordered Date First Orde red Date ADULT DISCHARGE DIET 1 05/25/2019 Nursing Count Last Ordered Date First Orde red Date DISCHARGE ACTIVITY 1 05/25/2019 DISCHARGE CALL PROVIDER 7 05/25/2019 Isolation Count Last Ordered Date First Orde red Date INITIATE CONTACT ISOLATION 1 05/24/2019 INITIATE DROPLET ISOLATION 1 05/24/2019 ADT Patient Update Count Last Ordered Date Firs t Ordered Date ED IP DECISION TO ADMIT 1 05/24/2019 documented in this encounter Additional Health Concerns Infection Onset Date Last Indicated Resolved Time COVID19 05/24/2019 05/24/2019 05/25/2019 2:58 PM CDT documented as of this encounter Care Teams Dental Treatment Coordinator Relationship Specialty Start [place] [id number] [address] [place] [id number] PCP - General 11/16/18 06/24/19 [place] [address] [address] [place] [id number] 11/16/18 documented as of this encounter
--- OUTSIDE RECORDS SUMMARY | 2024-02-24 20:16 | XMS_ITS | Encounter Summary ---
Author Organization [facility] Facility Care Team Providers Care Hide Worker Name Role Phone Huseyin Dangelo MD Primary Care Provider [phone] Huseyin Dangelo MD Unavailable [phone] Encounter Details Date Type Department Care Team (Latest Contact Info) Description 12/30/2018 Travel Social History Tobacco Use Types Packs/Day [...] on filedocumented in this encounter Care Teams Hide Worker Relationship Specialty Start [place] [address] [address] [place] [id number] PCP - General 11/16/18 06/24/19 [place] [address] [address] [place] [id number] 11/16/18 documented as of this encounter
--- OUTSIDE RECORDS SUMMARY | 2024-02-24 20:16 | XMS_ITS | Encounter Summary ---
Author Organization [facility] Address [address] [place] [address] Care Team Providers Care Manager Lean Name Role Phone Huseyin Dangelo MD Primary Care Provider [phone] Huseyin Dangelo MD Unavailable [phone] Reason for Visit * Reason Onset Date Comments paperwork fax # 01/09/2019 Encounter Details Date Type Department Care Team (Late st Contact Info) Description 01/09/2019 Telephone [facility] Hand Surgery [address] [place] [address] [place] [address] Chino Zaldivar MD [address] [place] [phone] paperwork fax # Social History Tobacco Use Types Packs/Day Years [...] * Telephone Encounter - Aida Gupta - 01/09/2019 8:15 AM CST TLB She is calling to give you the fax number for her paperwork to be sent 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
--- OUTSIDE RECORDS SUMMARY | 2024-02-24 20:16 | XMS_ITS | Encounter Summary ---
Author Organization [facility] Healthcare Address [address] [place] [address] Care Team Providers Care Protein Scientist Name Role Phone Huseyin Dangelo MD Primary Care Provider [phone] Huseyin Dangelo MD Unavailable [phone] Reason for Visit * Reason Comments Vomiting Diarrhea Black or Bloody Stool Encounter Details Date Type Department Care Team (Late st Contact Info) Description 12/31/2018 8:44 AM SUSTAINABILITY ANALYST - 12/31/2018 12:51 PM SUSTAINABILITY ANALYST Emergency [facility] Emergency Department [address] [place] [address] Svetlana Samano MD [address] [place] [address] Rectal bleeding (Primary Dx); Colitis Discharge Disposition: Discharge to home or self [...] Sign Reading Time Taken Comments Blood Pressure 136/97 12/31/2018 8:55 AM SUSTAINABILITY ANALYST Pulse 82 12/31/2018 8:52 AM SUSTAINABILITY ANALYST Temperature 36.6 ??C (97.8 ??F) 12/31/2018 8:52 AM CS T Respiratory Rate 11 12/31/2018 8:52 AM SUSTAINABILITY ANALYST Oxygen Saturation 98% 12/31/2018 8:52 AM SUSTAINABILITY ANALYST Inhaled Oxygen Concentration - - Weight - - Height - - Body Mass Index - - documented in this encounter Discharge Diagnoses Diagnosis Noninfective gastroenteritis and colitis, unspecified - NONINFECTIVE GASTROENTERITIS AND COLITIS, UNSPECIFIED Hemorrhage of anus and rectum - HEMORRHAGE OF ANUS AND RECTUM Hemorrhage of rectum and anus Elevated blood-pressure reading, without diagnosis of hypertension - ELEVATED BLOOD-PRESSURE READING, WITHOUT DIAGNOSIS OF HYPERTENSION Other specified postprocedural states - OTHER SPECIFIED POSTPROCEDURAL STATES Fibromyalgia - FIBROMYALGIA Unspecified myalgia and myositis Systemic lupus erythematosus, unspecified (HCC) - SYSTEMIC LUPUS ERYTHEMATOSUS, UNSPECIFIED Rheumatoid arthritis, unspecified (HCC) - RHEUMATOID ARTHRITIS, UNSPECIFIED Anemia, unspecified - ANEMIA, UNSPECIFIED Chronic kidney disease, unspecified - CHRONIC KIDNEY DISEASE, UNSPECIFIED Acquired absence of other specified parts of digestive tract - ACQUIRED ABSENCE OF OTHER SPECIFIED PARTS OF DIGESTIVE TRACT Personal history of other mental and behavioral disorders - PERSONAL HISTORY OF OTHER MENTAL AND BEHAVIORAL DISORDERS documented in this encounter Discharge Instructions * Attachments The following attachments cannot be sent through Care Everywhere. * Gastrointestinal Bleeding (Discharge Care) (Taiwanese) * Colitis (AfterCare(R) Instructions(ER/ED)) (Tai[place]ese) documented in this encounter Medications at Time of Discharge amoxicillin-clavu lanate (AUGMENTIN) 875-125 mg per tabletIndications :Abdominal/Pelvic Infection Take 1 tablet by mouth every 12 (twelve) hours for 10 days 20 tablet 12/31/2018 01/10/2019 ALPRAZolam (XANAX) 0.25 mg tablet Take 0.25 mg by mouth 3 (three) times a day as needed 07/15/2020 leflunomide (ARAVA) 10 mg tablet Take 10 mg by mouth daily 05/24/2019 omeprazole (PriLOSEC) 20 mg capsule Take 20 mg by mouth daily 05/24/2019 predniSONE (DELTASONE) 5 mg tablet Take 5-15 mg by mouth daily 01/19/2019 pregabalin (LYRICA) 75 mg capsule Take 1 capsule (75 mg total) by mouth 2 (two) times a day 60 capsule 12/17/2018 01/19/2019 documented as of this encounter Ordered Prescriptions Prescription Sig Dispense Quantity Refills Last Filled Start Date End Date amoxicillin-clavul anate (AUGMENTIN) 875-125 mg per tabletIndications: Abdominal/Pelvic Infection Take 1 tablet by mouth every 12 (twelve) hours for 10 days 20 tablet 12/31/2018 01/10/2019 documented in this encounter Discharge Disposition Disposition Code Departure Means Destination Discharge to home or self care documented in this encounter ED Notes * Svetlana Samano MD - 12/31/2018 10:35 AM CST HPI Chief Complaint Patient presents with ??? Vomiting ??? Diarrhea ??? Black or Bloody Stool 8:56 AM 12/31/2018 Carito Rausch is a 28 y.o. F with a history of CKD, appendectomy, anemia, lupus, fibromyalgia, rheumatoid arthritis, and depression, presenting to the ED, complaining of diarrhea onset 6 days ago s/p right wrist surgery. She describes the diarrhea as yellow and looks like bile, noting 2 episodesof hematochezia. Last menstrual period She reports diffuse abdominal pain, vomiting, and myalgias. She also reports an episode of pyrosis with pain radiating to her mid back that worsened with deep breathing. She notes a decreased appetite and diaphoresis. She notes that she has been taking Hydrocodone, Percocet, and Ibuprofen for pain s/p surgery. She also notes that she has been taking Prednisone for 1.5 for lupus. She reports a follow-up appointment with her orthopedic surgeon yesterday and states that the wound is healing well. No other alleviating or exacerbating factors. She denies any fevers. She denies any recent courses of antibiotics. PCP: [facility] Surgeon: Ann Per Chart Review: Patient was seen by Dr. Juarez, orthopedic surgeon, on 12/30/2018 for a follow-up appointment. Patient was placed in a short-arm splint as her pain was controlled at that time. Patient was instructed to follow-up as scheduled. History provided by: Patient interpreter for the deaf used: No Patient History Patient Active Problem List Diagnosis [...] for activity change, appetite change, chills, diaphoresis, fatigue, fever and unexpected weight change. HENT: Negative. Negative for congestion, facial swelling, nosebleeds, rhinorrhea and sore throat. Eyes: Negative. Negative for photophobia, discharge, redness and visual disturbance. Respiratory: Negative. Negative for apnea, cough, chest tightness, shortness of breath and wheezing. Cardiovascular: Negative. Negative for chest pain, palpitations and leg swelling. Gastrointestinal: Positive for abdominal pain, blood in stool (hematochezia), diarrhea and vomiting. Negative for abdominal distention, anal bleeding, constipation, nausea and rectal pain. Pyrosis with pain radiating to mid back. Endocrine: Negative. Negative for cold intolerance, heat intolerance, polydipsia, polyphagia and polyuria. Genitourinary: Negative. Negative for decreased urine volume, difficulty urinating, dysuria, flank pain, frequency, hematuria and urgency. Musculoskeletal: Positive for myalgias. Negative for arthralgias, back pain, gait problem, joint swelling, neck pain and neck stiffness. Skin: Negative. Negative for color change, pallor, rash and wound. Allergic/Immunologic: Negative for immunocompromised state. Neurological: Negative. Negative for dizziness, tremors, seizures, syncope, facial asymmetry, speech difficulty, weakness, light-headedness, numbness and headaches. Hematological: Negative. Does not bruise/bleed easily. Psychiatric/Behavioral: Negative. Negative for agitation, behavioral problems and confusion. All other systems reviewed and are negative. Physical Exam ED Triage Vitals Temp Pulse Resp BP SpO2 12/31/18 0852 12/31/18 0852 12/31/18 0852 12/31/18 0855 12/31/18 0852 36.6 ??C (97.8 ??F) 82 11 136/97 98 % Temp src Heart Rate Source Patient Position BP Location FiO2 (%) 12/31/18 0852 -- -- -- -- Oral Physical Exam Vitals signs and nursing note reviewed. Constitutional: General: She is not in acute distress. Appearance: She is well-developed. She is not diaphoretic. HENT: Head: Normocephalic and atraumatic. Mouth/Throat: Pharynx: No oropharyngeal exudate. Eyes: Conjunctiva/sclera: Conjunctivae normal. [...] There is no mass. Tenderness: There is tenderness (lower, mild). There is no guarding or rebound. Musculoskeletal: Normal range of motion. General: No tenderness or deformity. Comments: No swelling to the right wrist. Lymphadenopathy: Cervical: No cervical adenopathy. Skin: General: Skin is warm and dry. Capillary Refill: Capillary refill takes less than 2 seconds. Coloration: Skin is not pale. Findings: No erythema or rash. Comments: Surgical wound to the right wrist with sutures in place. No drainage. No erythema. Ecchymosis proxima to the incision. Neurological: Mental Status: She is alert and oriented to person, place, and time. Cranial Nerves: No cranial nerve deficit. Sensory: No sensory deficit. Motor: No abnormal muscle tone. Coordination: Coordination normal. Psychiatric: Behavior: Behavior normal. Thought Content: Thought content normal. [facility] Labs Reviewed CBC WITH AUTO DIFFERENTIAL - Abnormal Result Value WBC 2.2 (*) Hgb 11.2 (*) Hct 34.0 (*) Plt 210 MPV 9.9 RBC 3.84 (*) MCV 88.5 MCH 29.2 MCHC 32.9 RDW CV 14.6 RDW SD 46.7 NRBC abs 0.00 COMPREHENSIVE METABOLIC PANEL - Abnormal Sodium 140 Potassium, pl 3.5 Chloride 103 CO2 24 Anion gap 13 BUN 10 Creatinine 0.44 (*) Glucose 92 Calcium 9.5 Bilirubin, total 0.3 Protein, pl 7.1 Albumin 4.2 Alk phos 40 ALT 22 AST 17 DIFFERENTIAL AUTO - Abnormal Neutrophil abs 1.4 (*) Imm gran abs 0.0 Lymphocyte abs 0.5 (*) Monocyte abs 0.3 Eosinophil abs 0.0 Basophil abs 0.0 Neutrophil pct 63.1 Imm gran pct 0.4 Lymphocyte pct 22.8 Monocyte pct 12.9 Eosinophil pct 0.4 Basophil pct 0.4 URINALYSIS AND REFLEX TO MICROSCOPIC AND CULTURE Color, ur Yellow Clarity, ur Clear Specific gravity, ur 1.011 pH, urine 7.5 Protein, ur ql Negative Glucose, ur ql Negative Ketones, ur Negative Bilirubin, ur Negative Blood, ur Negative Urobilinogen, ur 0.2 Nitrite, ur Negative Leukocyte esterase, ur Negative Narrative: Urine pH is affected by diet, medications, systemic acid-base disturbances, and renal tubular function. pH may affect urinary stone formation. For example, urine pH below 6.0 may help reduce the tendency for calcium phosphate stones and pH greater than 6.0 may reduce the tendency for uric acid stone formation. Source: [employer].Last revised 03-08-2017 CLOSTRIDIUM DIFFICILE ASSAY Report Value: Final Report: Negative Clostridium difficile toxin not detected PROTIME-INR PT 11.8 INR 1.04 APTT aPTT 25.4 HCG, BLOOD, QUANTITATIVE hCG, quant <5.[address] Abdomen Pelvis W Contrast Final Result 1. FINDINGS SUGGEST COLITIS INVOLVING DESCENDING SIGMOID COLON, ALTHOUGH THIS IS UNDERDISTENDED. COLITIS MAY BE INFECTIOUS, INFLAMMATORY, OR ISCHEMIC. 2. PRIOR APPENDECTOMY. 3. TRACE OF FREE FLUID IN THE PELVIS. 4. 3 HYPODENSE LESIONS WITHIN THE LIVER. INDETERMINATE NATURE. FOLLOW-UP RECOMMENDED. Electronically signed by: Taiwo Aceves M.D BP 136/97 Pulse 82 Temp 36.6 ??C (97.8 ??F) (Oral) Resp 11 SpO2 98% Procedures MDM Number of Diagnoses or Management Options Amount and/or Complexity of Data Reviewed Clinical lab tests: ordered and reviewed Tests in the radiology section of CPT??: ordered and reviewed Tests in the medicine section of CPT??: ordered and reviewed Decide to obtain previous medical records or to obtain history from someone other than the patient:yes Risk of Complications, Morbidity, and/or Mortality Presenting problems: moderate Diagnostic procedures: moderate Management options: moderate Patient Progress Patient progress: stable ED Course as of Jan 01 1412 Time: 12/31 103 Comment: Rechecked patient. Condition is improved. Patient will try to provide us with a stool sample. Discussed the results of ED findings, including lab work and CT results, and the plan for discharge. Discussed starting on Augmentin for colitis. Discussed contacting physical fitness teacher for leukopenia. Recommended follow up with PCP or return to ED for new or worsening symptoms. Discussed return prec autions for excessive bleeding. Patient understands and agrees with plan. All other questions have been addressed. By: Marlene Wesley Time: 12/31 1041 Comment: Pre-hypertension/Hypertension: The patient has been informed that they may have pre-hypertension or Hypertension based on a blood pressure reading in the Emergency Department. I recommend that the patient call the primary care provider listed on their discharge instructions or a physician of their choice this week to arrange follow up for further evaluation of possible pre- hypertension or Hypertension. By: Marlene Wesley Time: 12/31 1241 Comment: Re-checked patient. Patient reports that blood in her stool has stopped. Advised patient to call her physical fitness teacher concerning her low white count and see her PCP in a few days for repeat stool collection since not all of the stool testing could be performed and to insure that the rectal bleeding stops. By: Marlene Wesley Rectal bleeding Colitis Disposition: Discharge Condition: Stable Marlene Wesley scribed for Svetlana Samano MD, in the doctor's presence. I electronically signed this note at 10:40 AM on 12/31/2018. I, Svetlana Samano MD, have personally performed the services described in the documentation , reviewed the documentation, as recorded by the scribe in my presence, and it accurately and completely records my words and actions. Svetlana Samano MD 12/31/18 1412 AINABILITY ANALYST * Dorene Sykes, PRO - 12/31/2018 8:49 AM CST Pt presents to the ED for c/o vomiting and diarrhea since 12/26 after she had a surgery on her R arm for nerve damage. Pt noticed blood in her stool yesterday. She is also achey AINABILITY ANALYST documented in this encounter Plan of Treatment Not on file documented as of this encounter Procedures Procedure Name Priority Date/Time Associated Diagnosis Comments CLOSTRIDIUM DIFFICILE ASSAY STAT 12/31/2018 10:[address] ABDOMEN PELVIS W CONTRAST ED 12/31/2018 10:06 AM SUSTAINABILITY ANALYST EGFR STAT 12/31/2018 9:18 AM SUSTAINABILITY ANALYST DIFFERENTIAL AUTO STAT 12/31/2018 9:1 8 AM SUSTAINABILITY ANALYST URINALYSIS AND REFLEX TO MICROSCOPIC AND CULTURE STAT 12/31/2018 9:18 AM SUSTAINABILITY ANALYST CBC WITH AUTO DIFFERENTIAL STAT 12/31/2018 9:18 AM SUSTAINABILITY ANALYST APTT STAT 12/31/2018 9:18 AM SUSTAINABILITY ANALYST PROTIME-INR STAT 12/31/2018 9:18 AM SUSTAINABILITY ANALYST HCG, BLOOD, QUANTITATIVE STAT 12/31/2018 9:18 AM SUSTAINABILITY ANALYST COMPREHENSIVE METABOLIC PANEL STAT 12/31/2018 9:18 AM SUSTAINABILITY ANALYST documented in this encounter Results * Clostridium difficile assay Stool (12/31/2018 10:46 AM SUSTAINABILITY ANALYST) Report Final Report: Negative Clostridium difficile toxin not detected [facility] Stool 12/31/2018 10:4 6 AM SUSTAINABILITY ANALYST 12/31/2018 11:29 AM SUSTAINABILITY ANALYST Svetlana Samano MD LAB MICROBIOLOGY - GENERAL ORDERABLES Final Result [facility]) 1 [facility] Department [place] [address] * CT Abdomen Pelvis W Contrast (12/31/2018 10:06 AM SUSTAINABILITY ANALYST) Anatomical Region Laterality Modality Body N/A Computed Tomogra phy 12/31/2018 10:0 8 AM SUSTAINABILITY ANALYST Impressions 12/31/2018 10:14 AM SUSTAINABILITY ANALYST 1. ??FINDINGS SUGGEST COLITIS INVOLVING DESCENDING SIGMOID COLON, ALTHOUGH THIS IS UNDERDISTENDED. ??COLITIS MAY BE INFECTIOUS, INFLAMMATORY, OR ISCHEMIC. 2. ??PRIOR APPENDECTOMY. 3. ??TRACE OF FREE FLUID IN THE PELVIS. 4. ??3 HYPODENSE LESIONS WITHIN THE LIVER. ??INDETERMINATE NATURE. FOLLOW-UP RECOMMENDED. Electronically signed by: Taiwo Aceves M.D Narrative 12/31/2018 10:[address] ABDOMEN PELVIS W CONTRAST HISTORY: Pain. ??Diarrhea. ??Blood in stool. TECHNIQUE: Helical CT scan of the abdomen and pelvis obtained with intravenous contrast. ??100 mL Optiray 320. ??No oral contrast as requested. COMPARISON: None available. FINDINGS: 11 mm hypodense focus right hepatic lobe at the dome of liver is indeterminate nature, with some minimal enhancement. Another hypodense focus right hepatic lobe on axial image #16 measures 8 mm. ??Small focus of enhancement. ??Very small evidence focus right hepatic lobe on axial image #27. ??This may represent cyst. ??Gallbladder unremarkable. ??Spleen size within normal range. No pancreatic mass identified. ??For the kidneys, no hydronephrosis. No adrenal mass identified. ??No small bowel dilatation identified. Evaluation the gastrointestinal tract is limited without oral contrast. ??Evidence of prior appendectomy. ??Underdistention the descending and sigmoid colon. ??There appear to be some mural prominence of the descending and sigmoid colon for possible colitis. Small bilateral adnexal cystic foci, largest is on the left measuring 14 mm. ??Most consistent with functional cyst. ??Urinary bladder is fairly well distended with urine. ??Uterus is present. ??Trace of free fluid in the pelvis. ??Fairly small umbilical hernia containing only adipose tissue. Procedure Note Taiwo Aceves MD - 12/31/2018 CT ABDOMEN PELVIS W CONTRAST HISTORY: Pain. Diarrhea. Blood in stool. TECHNIQUE: Helical CT scan of the abdomen and pelvis obtained with intravenous contrast. 100 mL Optiray 320. No oral contrast as requested. COMPARISON: None available. FINDINGS: 11 mm hypodense focus right hepatic lobe at the dome of liver is indeterminate nature, with some minimal enhancement. Another hypodense focus right hepatic lobe on axial image #16 measures 8 mm. Small focus of enhancement. Very small evidence focus right hepatic lobe on axial image #27. This may represent cyst. Gallbladder unremarkable. Spleen size within normal range. No pancreatic mass identified. For the kidneys, no hydronephrosis. No adrenal mass identified. No small bowel dilatation identified. Evaluation the gastrointestinal tract is limited without oral contrast. Evidence of prior appendectomy. Underdistention the descending and sigmoid colon. There appear to be some mural prominence of the descending and sigmoid colon for possible colitis. Small bilateral adnexal cystic foci, largest is on the left measuring 14 mm. Most consistent with functional cyst. Urinary bladder is fairly well distended with urine. Uterus is present. Trace of free fluid in the pelvis. Fairly small umbilical hernia containing only adipose tissue. IMPRESSION: 1. FINDINGS SUGGEST COLITIS INVOLVING DESCENDING SIGMOID COLON, ALTHOUGH THIS IS UNDERDISTENDED. COLITIS MAY BE INFECTIOUS, INFLAMMATORY, OR ISCHEMIC. 2. PRIOR APPENDECTOMY. 3. TRACE OF FREE FLUID IN THE PELVIS. 4. 3 HYPODENSE LESIONS WITHIN THE LIVER. INDETERMINATE NATURE. FOLLOW-UP RECOMMENDED. Electronically signed by: Taiwo Aceves M.D Svetlana Samano MD IMG CT PROCEDURES F inal Result * eGFR (12/31/2018 9:18 AM SUSTAINABILITY ANALYST) eGFR 139 mL/min/1.7 3 m2 [facility] Comment: Interpretive Data Reference Interval Normal ?>/= 90 mL/min/1.73m2 Mildly decreased* ? 60 - 89 mL/min/1.73m2 Mildly to moderately decreased ?45 - 59 mL/min/1.73m2 Moderately to severely decreased ??30 - 44 mL/min/1.73m2 Severely decreased ?15 - 29 mL/min/1.73m2 Kidney Failure ?< 15 ??mL/min/1.73m2 *Relative to young adult level If -[place] multiply value by 1.16. Estimated glomerular filtration [...] was last reviewed 2015. Blood specimen (specimen) 12/31/2018 9:18 AM SUSTAINABILITY ANALYST 12/31/2018 9:26 AM SUSTAINABILITY ANALYST Svetlana Samano MD LAB BLOOD ORDERABLE S Final Result [facility] ([place]) 1 [facility] Department [place] [address] * (ABNORMAL) Differential, auto (12/31/2018 9:18 AM SUSTAINABILITY ANALYST) Neutrophil abs 1.4(L) 1.7 - 6.5 K/cumm [facility] ([place]) Imm gran abs 0.0 0.0 - 0.1 K/cumm [facility] ([place]) Lymphocyte abs 0.5(L) 0.8 - 3.3 K/cumm [facility] ([place]) Monocyte abs 0.3 0.2 - 0.8 K/cumm [facility] ([place]) Eosinophil abs 0.0 0.0 - 0.5 K/cumm [facility] ([place]) Basophil abs 0.0 0.0 - 0.1 K/cumm [facility] ([place]) Neutrophil pct 63.1 % [facility] ([place]) Comment: Interpretive Data Percent cell count reference ranges are not reported, since discordance with absolute values may lead to misinterpretation of CBC data. Current Interpretive Data was last revised on 2017. Imm gran pct 0.4 % [facility] ([place]) Comment: Interpretive Data Percent cell count reference ranges are not reported, since discordance with absolute values may lead to misinterpretation of CBC data. Current Interpretive Data was last revised on 2017. Lymphocyte pct 22.8 % [facility] ([place]) Comment: Interpretive Data Percent cell count reference ranges are not reported, since discordance with absolute values may lead to misinterpretation of CBC data. Current Interpretive Data was last revised on 2017. Monocyte pct 12.9 % [facility] ([place]) Comment: Interpretive Data Percent cell count reference ranges are not reported, since discordance with absolute values may lead to misinterpretation of CBC data. Current Interpretive Data was last revised on 2017. Eosinophil pct 0.4 % [facility] ([place]) Comment: Interpretive Data Percent cell count reference ranges are not reported, since discordance with absolute values may lead to misinterpretation of CBC data. Current Interpretive Data was last revised on 2017. Basophil pct 0.4 % [facility] ([place]) Comment: Interpretive Data Percent cell count reference ranges are not reported, since discordance with absolute values may lead to misinterpretation of CBC data. Current Interpretive Data was last revised on 2017. Blood specimen (specimen) 12/31/2018 9:18 AM SUSTAINABILITY ANALYST 12/31/2018 9:26 AM SUSTAINABILITY ANALYST Svetlana Samano MD LAB BLOOD ORDERABLE S Final Result Performing Organization Address [facility] Co de Phone Number [facility] ([place]) 1 [facility] [place] [address] * hCG, blood, quantitative (12/31/2018 9:18 AM SUSTAINABILITY ANALYST) hCG, quant <5.0 0.0 - 5.0 IUnits/L [facility] ([place]) Comment: Interpretive Data Non- Female premenopausal: < or = 5.0 IUnits/L Men: < 5.0 IUnits/L Weeks of Gestation ? Reference Interval ?? 3 to 6 ? 5.8-31,795 IUnits/L ?? 7 to 10 ? 3,697-186,977 IUnits/L ??12 to 15 ?27,832- 70,791 IUnits/L ??16 to 18 ? 9,040- 58,179 IUnits/L Current Interpretive Data was last revised on 2017. Blood specimen (specimen) 12/31/2018 9:18 AM SUSTAINABILITY ANALYST 12/31/2018 11:36 AM SUSTAINABILITY ANALYST Svetlana Samano MD LAB BLOOD ORDERABLE S Edited Result - Final Performing Organization Address [facility] Co de Phone Number [facility] ([place]) 1 [facility] [place] [address] * Urinalysis reflex to microscopic and culture Urine (12/31/2018 9:18 AM SUSTAINABILITY ANALYST) Color, ur Yellow Yellow [facility] ([place]) Clarity, ur Clear Clear [facility] ([place]) Specific gravity, ur 1.011 1.010 - 1.025 [facility] ([place]) pH, urine 7.5 [facility] ([place]) Protein, ur ql Negative Negative [facility] ([place]) Glucose, ur ql Negative Negative [facility] ([place]) Ketones, ur Negative Negative [facility] ([place]) Bilirubin, ur Negative Negative [facility] ([place]) Blood, ur Negative Negative [facility] ([place]) Urobilinogen, ur 0.2 mg/dL [facility] ([place]) Nitrite, ur Negative Negative [facility] ([place]) Leukocyte esterase, ur Negative Negative [facility] ([place]) Urine 12/31/2018 9:18 AM SUSTAINABILITY ANALYST 12/31/2018 9:26 AM SUSTAINABILITY ANALYST Narrative [facility] ([place] - 12/31/2018 9:30 AM SUSTAINABILITY ANALYST ?? Urine pH is affected by diet, medications, systemic acid-base disturbances, and renal tubular function. ??pH may affect urinary stone formation. ??For example, urine pH below 6.0 may help reduce the tendency for calcium phosphate stones and pH greater than 6.0 may reduce the tendency for uric acid stone formation. Source: [facility] [employer]. Last revised 03-08-2017 Svetlana Samano MD LAB MICROBIOLOGY - GENERAL ORDERABLES Final Result [facility] ([place] 1 [facility] Department [place] [address] * aPTT (12/31/2018 9:18 AM SUSTAINABILITY ANALYST) aPTT 25.4 25.0 - 37.0 sec [facility] ([place]) Blood specimen (specimen) 12/31/2018 9:18 AM SUSTAINABILITY ANALYST 12/31/2018 9:26 AM SUSTAINABILITY ANALYST Svetlana Samano MD LAB BLOOD ORDERABLE S Final Result Performing Organization Address City/[facility]/ZIP Co de Phone Number [facility] ([place]) 1 [facility] [place] [address] * Protime-INR (12/31/2018 9:18 AM SUSTAINABILITY ANALYST) PT 11.8 9.5 - 13.0 sec [facility] ([place] INR 1.04 0.90 - 1.20 [facility] ([place]) Comment: Interpretive Data Recommended ranges for Protime INR: 2.0 - 3.0 Most indications for Warfarin therapy (e.g. Treatment of DVT, PE, bioprosthetic valve replacement, prophylaxis venous thrombosis, atrial fibrillation). 2.5 - 3.5 Mechanical mitral valve or dual mechanical mitral and Aortic valve replacement. Current Interpretive Data was last revised on 2014. Blood specimen (specimen) 12/31/2018 9:18 AM SUSTAINABILITY ANALYST 12/31/2018 9:26 AM SUSTAINABILITY ANALYST Svetlana Samano MD LAB BLOOD ORDERABLE S Final Result Performing Organization Address [facility] Co de Phone Number [facility] ([place]) 1 [facility] [place] [address] * (ABNORMAL) Comprehensive metabolic panel (12/31/2018 9:18 AM SUSTAINABILITY ANALYST) Sodium 140 135 - 145 mmol/L [facility] ([place]) Potassium, pl 3.5 3.3 - 4.9 mmol/L [facility] ([place]) Chloride 103 97 - 110 mmol/L [facility] ([place] CO2 24 22 - 32 mmol/L [facility] ([place] Anion gap 13 2 - 15 mmol/L [facility] ([place]) BUN 10 8 - 25 mg/dL [facility] ([place]) Creatinine 0.44(L) 0.60 - 1.10 mg/dL [facility] ([place]) Glucose 92 70 - 199 mg/dL [facility] ([place]) Comment: Interpretive Data Fasting [...] 5.0 g/dL [facility] ([place]) Alk phos 40 40 - 130 Units/L [facility] ([place]) ALT 22 7 - 45 Units/L [facility] ([place]) AST 17 10 - 45 Units/L [facility] ([place]) Blood specimen (specimen) 12/31/2018 9:18 AM SUSTAINABILITY ANALYST 12/31/2018 9:26 AM SUSTAINABILITY ANALYST us Svetlana Samano MD LAB BLOOD ORDERABLE S Final Result [facility] ([place]) 1 [facility] Department [place] [address] * (ABNORMAL) CBC with auto differential (12/31/2018 9:18 AM SUSTAINABILITY ANALYST) WBC 2.2(L) 3.8 - 9.9 K/cumm [facility] ([place]) Hgb 11.2(L) 11.9 - 15.5 g/dL [facility] ([place]) Hct 34.0(L) 35.6 - 45.5 % [facility] ([place]) Plt 210 150 - 400 K/cumm [facility] ([place]) MPV 9.9 9.1 - 12.3 fL [facility] ([place]) RBC 3.84(L) 3.90 - 5.20 M/cumm [facility] ([place]) MCV 88.5 81.3 - 96.4 fL [facility] ([place]) MCH 29.2 27.1 - 33.3 pg [facility] ([place]) MCHC 32.9 32.3 - 35.7 g/dL [facility] ([place]) RDW CV 14.6 11.1 - 14.9 % [facility] ([place]) RDW SD 46.7 35.7 - 48.1 fL [facility] ([place]) NRBC abs 0.00 0.00 - 0.01 K/cumm [facility] ([place]) Blood specimen (specimen) 12/31/2018 9:18 AM SUSTAINABILITY ANALYST 12/31/2018 9:26 AM SUSTAINABILITY ANALYST us Svetlana Samano MD LAB BLOOD ORDERABLE S Final Result [facility] ([place]) 1 [facility] Department [place] [address] documented in this encounter Visit Diagnoses Diagnosis Rectal bleeding- Primary Hemorrhage of rectum and anus Colitis Other and unspecified noninfectious gastroenteritis and colitis documented in this encounter Administered Medications Inactive Administered Medications - up to 3 most recent administrations Medication Order MAR Action Action Date Dose Rate Site acetaminophen (TYLENOL) tablet 1,000 mg 1,000 mg, oral, Once, On Sun12/31/18 at 1028, For 1 dose Given 12/31/2018 10:38 AM SUSTAINABILITY ANALYST 1,000 mg amoxicillin-clavulana te (AUGMENTIN) 875-125 mg per tablet 875 mg of amoxicillin 875 mg of amoxicillin, oral, Once, On Sun12/31/18 at 1042, For 1 dose, Indications: Abdominal/Pelvic InfectionIndications: Abdominal/Pelvic Infection Given 12/31/2018 10:53 AM SUSTAINABILITY ANALYST 875 mg of amoxicillin ioversol intravenous syringe 100 mL 100 mL, intravenous, Once in imaging, contrast, Starting on Sun12/31/18 at 0955, For 1 dose Given 12/31/2018 9:59 AM SUSTAINABILITY ANALYST 100 mL sodium chloride 0.9% bolus 1,000 mL 1,000 mL, intravenous, at 1,000 mL/hr, Administer over 1 Hours, Once, On Sun12/31/18 at 0916, For 1 dose New Bag 12/31/2018 9:26 AM SUSTAINABILITY ANALYST 1,000 mL 1000 mL/hr documented in this encounter Historical Medications * This list may reflect changes made after this encounter. leflunomide (ARAVA) 10 mg tablet Take 10 mg by mouth daily 05/24/2019 added in this encounter Active and Recently Administered Medications Due to Daylight Saving Time, this section may contain times in both CDT and SUSTAINABILITY ANALYST. Scheduled Medication Order 12/29/2018 12/30/2018 12/31/2018 acetaminophen (TYLENOL) tablet 1,000 mg (COMPLETED) 1,000 mg, oral, Once, On Sun12/31/18 at 1028, For 1 dose 1038 (Given - Provid er: Amy Higgins RN) amoxicillin-clavulanate (AUGMENTIN) 875-125 mg per tablet 875 mg of amoxicillin (COMPLETED) 875 mg of amoxicillin, oral, Once, On Sun12/31/18 at 1042, For 1 dose, Indications: Abdominal/Pelvic Infection 1053 (Given - Provid er: Dorene Sykes RN) sodium chloride 0.9% bolus 1,000 mL (COMPLETED) 1,000 mL, intravenous, at 1,000 mL/hr, Administer over 1 Hours, Once, On Sun12/31/18 at 0916, For 1 dose 0926 (New Bag - Prov ider: Dorene Sykes RN)1037 (Stopped - Provider: Amy Higgins RN) PRN Medication Order 12/29/2018 12/30/2018 12/31/2018 ioversol intravenous syringe 100 mL (COMPLETED) 100 mL, intravenous, Once in imaging, contrast, Starting on Sun12/31/18 at 0955, For 1 dose 0959 (Given - Provid er: Мария Villalpando, RT - Comment: [id number]) documented in this encounter Care Teams Protein Scientist Relationship Specialty [place] [address] [facility] [address], [place] [address] PCP - General 11/16/18 06/24/19 [place] [address] [address] 11/16/18 documented as of this encounter
--- OUTSIDE RECORDS SUMMARY | 2024-02-24 20:16 | XMS_ITS | Encounter Summary ---
Author Organization [facility] Facility Care Team Providers Care Aeronautical Engineering Officer Name Role Phone Huseyin Dangelo MD Primary Care Provider [phone] Huseyni Dangelo MD Unavailable [phone] Encounter Details Date Type Department Care Team (Latest Contact Info) Description 01/27/2019 Travel Social History Tobacco Use Types Packs/Day [...] on filedocumented in this encounter Care Teams Aeronautical Engineering Officer Relationship Specialty Start [place] [address] [address] [place] [address] PCP - General 11/16/18 06/24/19 [place] [address] [address] [place] [address] 11/16/18 documented as of this encounter
--- OUTSIDE RECORDS SUMMARY | 2024-02-24 20:16 | XMS_ITS | Encounter Summary ---
Author Organization [facility] Healthcare Address [address] [place] [address] Care Team Providers Care Drafter Detail Name Role Phone Huseyin Dangelo MD Primary Care Provider [phone] Huseyin Dangelo MD Unavailable [phone] Encounter Details Date Type Department Care Team (Latest Contact Info) Description 01/27/2019 10:54 AM WOODYARD CRANE OPERATOR - 01/27/2019 11:59 PM WOODYARD CRANE OPERATOR Hospital Encounter [facility] [address] [place] [address] Nina Faith MD 1 [facility] [place] [address] Discharge Disposition: Discharge to home or self [...] LATERAL 2 VIEWS ED 01/27/2019 11:00 AM WOODYARD CRANE OPERATOR documented in this encounter Results * XR Chest Pa Lateral 2 Views (01/27/2019 11:00 AM WOODYARD CRANE OPERATOR) Anatomical Region Laterality Modality Body, Chest N/A Computed Radiogr aphy 01/27/2019 11:1 9 AM WOODYARD CRANE OPERATOR Impressions 01/27/2019 11:21 AM WOODYARD CRANE OPERATOR NO ACTIVE DISEASE. Electronically signed by: Andrey Hernandez M.D. Narrative 01/27/2019 11:21 AM WOODYARD CRANE OPERATOR XR CHEST PA LATERAL 2 VIEWS HISTORY: [...] MD IMG XR PROCEDURES Final R esult documented in this encounter Visit Diagnoses Not on filedocumented in this encounter Care Teams Drafter Detail Relationship Specialty Start [place] [address] [address] [facility] [address] [place] [address] PCP - General 11/16/18 06/24/19 [place] [address] [address] [facility] [address] [place] [address] 11/16/18 documented as of this encounter
--- OUTSIDE RECORDS SUMMARY | 2024-02-24 20:16 | XMS_ITS | Encounter Summary ---
Author Organization [facility] Facility Care Team Providers Care Manufacturers Agent Name Role Phone Huseyin Dangelo MD Primary Care Provider [phone] Huseyin Dangelo MD Unavailable [phone] Encounter Details Date Type Department Care Team (Latest Contact Info) Description 12/31/2018 Travel Social History Tobacco Use Types Packs/Day [...] on filedocumented in this encounter Care Teams Manufacturers Agent Relationship Specialty Start [place] [address] [address] [place] [address] PCP - General 11/16/18 06/24/19 [place] [address] [address] [place] [address] 11/16/18 documented as of this encounter
--- OUTSIDE RECORDS SUMMARY | 2024-02-24 20:16 | XMS_ITS | Encounter Summary ---
Author Organization [facility] Facility Care Team Providers Care Dinkey Dispatcher Name Role Phone Huseyin Dangelo MD Primary Care Provider [phone] Huseyin Dangelo MD Unavailable [phone] Encounter Details Date Type Department Care Team (Latest Contact Info) Description 03/31/2019 Travel Social History Tobacco Use Types Packs/Day [...] on filedocumented in this encounter Care Teams Dinkey Dispatcher Relationship Specialty Start [place] [address] [address] [place] [address] PCP - General 11/16/18 06/24/19 [place] [address] [address] [place] [address] 11/16/18 documented as of this encounter
--- OUTSIDE RECORDS SUMMARY | 2024-02-24 20:16 | XMS_ITS | Encounter Summary ---
Author Organization [facility] Address [address] [place] [address] Care Team Providers Care Pharmacists Name Role Phone Huseyin Dangelo MD Primary Care Provider [phone] Huseyin Dangelo MD Unavailable [phone] Encounter Details Date Type Department Care Team (Late st Contact Info) Description 01/10/2019 Telephone [facility] Hand Surgery [address] [facility] [address] [place] [address] Chino Zaldivar MD [address] [place] [address] [address] Social History Tobacco Use Types [...] Telephone Encounter - Rachna Vogel MA - 01/10/2019 11:08 AM CST Pt notified that paperwork was submitted. Y BACTERIOLOGIST * Telephone Encounter - Lupis Guaman - 01/10/2019 8:45 AM CST TLB Patient had paperwork faxed to the office yesterday. This has to be faxed back to her employer today or she will be fired. Fax number is attached to paperwork [phone] - ATTN; Leave of Absence Y BACTERIOLOGIST documented in this encounter Plan of Treatment Not on file documented as of this encounter Visit Diagnoses Not on filedocumented in this encounter Care Teams Pharmacists Relationship Specialty [place] [address] [address] [place] [address] PCP - General 11/16/18 06/24/19 [place] [address] [address] [place] [address] 11/16/18 documented as of this encounter
--- OUTSIDE RECORDS SUMMARY | 2024-02-24 20:17 | XMS_ITS | Encounter Summary ---
Author Organization [facility] Address [address] [facility] [address] [place] [address] Care Team Providers Care Survey And Mapping Technician Name Role Phone Huseyin Dangelo MD Primary Care Provider [phone] Huseyin Dangelo MD Unavailable [phone] Encounter Details Date Type Department Care Team (Late st Contact Info) Description 12/24/2018 Telephone [facility] Hand Surgery [address] [facility] [address] [place] [address] Rachna Vogel MA Social History Tobacco Use Types Packs/Day [...] Telephone Encounter - Rachna Vogel MA - 12/24/2018 3:42 PM CDT Spoke with pt to discuss upcoming surgery on 12/26/18. Discussed ED visit to [facility] on 12/23/18, states she was seen and recommended to use 5% Lidocaine ointment and capsaicin ointment. Rec taking Gabapentin instead of Lyrica. She was seen in our office that same day by TLB and discussed treatment and surgery. Pt wishes to proceed with surgery on 12/26/18. documented in this encounter Plan of Treatment Not on file documented as of this encounter Visit Diagnoses Not on filedocumented in this encounter Care Teams Survey And Mapping Technician Relationship Specialty Start [place] [address] [address] [facility] [address] [place] [address] PCP - General 11/16/18 06/24/19 [place] [address] [address] [place] [address] [place] [address] 11/16/18 documented as of this encounter
--- OUTSIDE RECORDS SUMMARY | 2024-02-24 20:17 | XMS_ITS | Encounter Summary ---
Author Organization [facility] Address [address] [facility] [address] [place] [address] Care Team Providers Care Bush Regenerator Name Role Phone Huseyin Dangelo MD Primary Care Provider [phone] Huseyin Dangelo MD Unavailable [phone] Reason for Visit * Reason Comments Pain Encounter Details Date Type Department Care Team (Late st Contact Info) Description 12/23/2018 10:00 AM CDT Office Visit [facility] Hand Surgery [address] [facility] [address] [place] [phone] Chino Zaldivar MD [address] [place] [address] Laceration of flexor muscle, fascia and tendon [...] Progress Notes * Chino Zaldivar MD - 12/23/2018 10:00 AM CDT Images from the original note were not included. Patient ID: Carito Rausch is a 28 y.o. female. Visit Date: 12/23/2018 Chief Complaint: Status post wrist surgery HPI: She returns today with increased pain. No fevers or chills Review of Systems There were no vitals taken for this visit. Physical Exam: Healed incision with no signs of infection at today's exam Xray / Imaging: None 1. Laceration of flexor muscle, fascia and tendon of right little finger at wrist and hand level, initial encounter PLAN: We have entertain multiple phone calls since her surgery. Today she states that the day of surgery she had to move because of personal reasons if she did a lot of heavy lifting the day of surgery. She believes that her nerve repair could have been disrupted the day of surgery because of her increased activity that day and she only tells me this at today's visit. I have entertain multiple phone calls as it pertains to her discomfort she has been to the emergency room and urgent cares multiple times. After long discussion and answering multiple questions we have decided to proceed with an exploration to determine if she did disrupt her previous nerve repair risks benefits and alternatives were discussed in detail. She does wish to proceed with surgical intervention Procedures documented in this encounter Plan of Treatment Not on file documented as of this encounter Visit Diagnoses Diagnosis Laceration of flexor muscle, fascia and tendon of right little finger at wrist and hand level, initial encounter- Primary documented in this encounter Care Teams Bush Regenerator Relationship Specialty Start [place] [address] [address] [place] [address] PCP - General 11/16/18 06/24/19 [place] [address] [address] [place] [address] 11/16/18 documented as of this encounter
--- OUTSIDE RECORDS SUMMARY | 2024-02-24 20:17 | XMS_ITS | Encounter Summary ---
Author Organization [facility] Address [address] [facility] [address] [place] [address] Care Team Providers Care Medical Office Technologist Name Role Phone Huseyin Dangelo MD Primary Care Provider [phone] Huseyin Dangelo MD Unavailable [phone] Reason for Visit * Reason Comments Post-op Encounter Details Date Type Department Care Team (Late st Contact Info) Description 12/18/2018 9:00 AM CDT Office Visit [facility] Hand Surgery [address] [facility] [address] [place] [phone] Chino Zaldivar MD [address] [place] [address] Laceration of flexor muscle, fascia and tendon [...] Progress Notes * Chino Zaldivar MD - 12/18/2018 9:00 AM CDT Images from the original note were not included. Patient ID: Carito Rausch is a 28 y.o. female. Visit Date: 12/18/2018 Chief Complaint: Status post right median nerve repair at the wrist HPI: She returns with 8/10 pain no fevers or chills Review of Systems There were no vitals taken for this visit. Physical Exam: Healed incision with no signs of infection at today's exam she has good digital and wrist range of motion motor strength instability Xray / Imaging: None 1. Laceration of flexor muscle, fascia and tendon of right little finger at wrist and hand level, initial encounter PLAN: Will follow-up with her in 1 month for examination and will perform 2 point discrimination at that time Procedures documented in this encounter Plan of Treatment Not on file documented as of this encounter Visit Diagnoses Diagnosis Laceration of flexor muscle, fascia and tendon of right little finger at wrist and hand level, initial encounter- Primary documented in this encounter Care Teams Medical Office Technologist Relationship Specialty Start [place] [address] [address] [place] [address] PCP - General 11/16/18 06/24/19 [place] [address] [address] [place] [address] 11/16/18 documented as of this encounter
--- OUTSIDE RECORDS SUMMARY | 2024-02-24 20:17 | XMS_ITS | Encounter Summary ---
Author Organization [facility] Facility Care Team Providers Care Telecommunications Consultant Name Role Phone Huseyin Dangelo MD Primary Care Provider [phone] Encounter Details Date Type Department Care Team (Latest Contact Info) Description 10/03/2018 Travel Social History Tobacco Use Types Packs/Day [...] on filedocumented in this encounter Care Teams Telecommunications Consultant Relationship Specialty Start [place] [address] [address] PCP - General 10/03/18 11/15/18 documented as of this encounter
--- OUTSIDE RECORDS SUMMARY | 2024-02-24 20:17 | XMS_ITS | Encounter Summary ---
Author Organization [facility] Medical [facility] Address [address] [facility] [address] [place] [address] Care Team Providers Care Tennis Player Name Role Phone Huseyin Dangelo MD Primary Care Provider [phone] Huseyin Dangelo MD Unavailable [phone] Reason for Visit * Reason Comments Wound Check Encounter Details Date Type Department Care Team (Late st Contact Info) Description 12/06/2018 8:00 AM CDT Office Visit [facility] Hand Surgery [address] [facility] [address] [place] [phone] Chino Zaldivar MD [address] [place] [address] [address] Laceration of flexor muscle, fascia and tendon [...] Progress Notes * Chino Zaldivar MD - 12/06/2018 8:00 AM CDT Patient ID: Carito Rausch is a 28 y.o. female. Visit Date: 12/06/2018 Chief Complaint: Wrist laceration HPI: This is a 28-year-old female who sustained a laceration to her right wrist last Sunday and she was seen in the emergency room and was sutured and she comes in today with numbness involving the radialsided digits with no modifying factors 6/10 pain in the area of her laceration no fevers or chills no feeling of instability. Review of Systems Constitutional: Negative for chills. HENT: Negative for congestion. Respiratory: Negative for cough. Neurological: Negative for seizures. There were no vitals taken for this visit. Physical Exam: Her gait is within normal limits. Her mood and affect are appropriate. She is well nourished. She is alert and oriented to time and place. She has a laceration starting at the distal wrist flexion crease extending proximally. She has tenderness associated with the laceration. She has absolutely no sensation at the thumb index long and the radial border of the ring finger. She has good flexion involving the digits of the right hand her abductor pollicis brevis strength is 3/5 on the right her hands warm to the touch. Xray / Imaging: AP lateral and oblique x-rays of the right wrist show no obvious pathology previously performed 1. Laceration of flexor muscle, fascia and tendon of right little finger at wrist and hand level, initial encounter PLAN: I believe she has an injury to her median nerve and risks benefits and alternatives of wrist exploration nerve treatment is indicated was discussed in detail multiple questions were answered. Procedures documented in this encounter Plan of Treatment Not on file documented as of this encounter Visit Diagnoses Diagnosis Laceration of flexor muscle, fascia and tendon of right little finger at wrist and hand level, initial encounter- Primary documented in this encounter Care Teams Tennis Player Relationship Specialty Start [place] [address] [address] [place] [address] PCP - General 11/16/18 06/24/19 [place] [address] [address] [place] [address] 11/16/18 documented as of this encounter
--- OUTSIDE RECORDS SUMMARY | 2024-02-24 20:17 | XMS_ITS | Encounter Summary ---
Author Organization [facility] Facility Care Team Providers Care Flaker Operator Name Role Phone Huseyin Dangelo MD Primary Care Provider [phone] Huseyin Dangelo MD Unavailable [phone] Encounter Details Date Type Department Care Team (Latest Contact Info) Description 12/23/2018 Travel Social History Tobacco Use Types Packs/Day [...] on filedocumented in this encounter Care Teams Flaker Operator Relationship Specialty Start [place] [address] [address] [place] [address] PCP - General 11/16/18 06/24/19 [place] [address] [address] [place] [address] 11/16/18 documented as of this encounter
--- OUTSIDE RECORDS SUMMARY | 2024-02-24 20:17 | XMS_ITS | Encounter Summary ---
Author Organization [facility] Healthcare Address [address] [place] [address] Care Team Providers Care Bean Roaster Name Role Phone Huseyin Dangelo MD Primary Care Provider [phone] Huseyin Dangelo MD Unavailable [phone] Encounter Details Date Type Department Care Team (Late st Contact Info) Description 11/16/2018 9:46 AM CDT - 11/16/2018 1:49 PM CDT Hospital Encounter [address] [address] Unknown, Prakash Donovan MD [address] [place] [address] Discharge Disposition: Discharge to home or self care Social History Tobacco Use Types Packs/Day Years Used Date Smoking Tobacco: Never Assessed Comments Unknown Sex and Gender Information Value Date Recorded Sex Assigned at Not on file Legal Sex Female 10:58 PM CDT Gender Identity Not on file Sexual Orientation Not on file documented as of this encounter Last Filed Vital Signs Vital Sign Reading Time Taken Comments Blood Pressure 126/92 11/16/2018 9:49 AM CDT Pulse 94 11/16/2018 9:49 AM CDT Temperature 36.9 ??C (98.4 ??F) 11/16/2018 9:49 AM CD T Respiratory Rate - - Oxygen Saturation 96% 11/16/2018 9:49 AM CDT Inhaled Oxygen Concentration - - Weight 65.9 kg (145 lb 4.6 oz) 11/16/2018 9:49 A M CDT Height 160 cm (5' 3 ) 11/16/2018 9:49 AM CDT Body Mass Index 25.74 11/16/2018 9:49 AM CDT documented in this encounter Medications at Time of Discharge ALPRAZolam (XANAX) 0.25 mg tablet Take 0.25 mg by mouth 3 (three) times a day as needed 07/15/2020 omeprazole (PriLOSEC) 20 mg capsule Take 20 mg by mouth daily 05/24/2019 predniSONE (DELTASONE) 5 mg tablet Take 5-15 mg by mouth daily 01/19/2019 documented as of this encounter Discharge Disposition Disposition Code Departure Means Destination Discharge to home or self care documented in this encounter Plan of Treatment Not on file documented as of this encounter Procedures Procedure Name Priority Date/Time Associated Diagnosis Comments CBC WITH AUTO DIFFERENTIAL Routine 11/16/2018 10:17 AM CDT LIPASE Routine 11/16/2018 10:17 AM CDT COMPREHENSIVE METABOLIC PANEL Routine 11/16/2018 10:17 AM CDT D-DIMER, QUANTITATIVE Routine 11/16/2018 10:14 AM CDT B-TYPE NATRIURETIC PEPTIDE Routine 11/16/2018 10:14 AM CDT URINALYSIS, COMPLETE W/REFLEX TO CULTURE Routine 11/16/2018 10:07 AM CDT XR HAND LEFT 3 OR MORE VIEWS 11/16/2018 12:00 AM CDT documented in this encounter Results * Lipase (11/16/2018 10:17 AM CDT) Lipase 40 13 - 60 U/L [facility] 11/16/2018 10:1 7 AM CDT 11/16/2018 10:22 AM CDT Narrative Resulting Agency Comment ER Prakash Ochoa MD LAB BLOOD ORDERABLES Final Result [facility] [address] [place] [address], [facility] [phone] * (ABNORMAL) Comprehensive metabolic panel (11/16/2018 10:17 AM CDT) Sodium 139 135 - 145 mmol/L [facility] Potassium 3.8 3.3 - 5.1 mmol/L [facility] Chloride 103 96 - 108 mmol/L [facility] Carbon Dioxide 26 22 - 32 mmol/L [facility] Anion Gap 10 7 - 16 [facility] Glucose 85 70 - 100 mg/dL [facility] BUN 15 8 - 25 mg/dL [facility] Creatinine 0.6 0.5 - 1.1 mg/dL [facility] Comment: NOTE: Estimated GFR (Cockroft-Gault) will NOT be calculated unless patient Height and Weight were entered. Also, Kidney Disease Stage (GFR) and Estimated GFR (Cockroft-Gault) will NOT be calculated if Creatinine result is <0.2. Kidney Disease Stage >90 mL/MIN [facility] Comment: NOTE; ??The GFR is an estimated value using the creatinine, sex, age, and race of the patient. THE Estimated Kidney Disease GFR is validated for AGES 18-70 YEARS STAGE ?mL/Min ?DESCRIPTION ??1 ?90 mL/min or more ?Normal or elevated GFR ??2 ? 60-89 mL/min ?Mildly decreased GFR ??3 ? 30-59 mL/min ?Moderately decreased GFR ??4 ? 15-29 mL/min ?Severely decreased GFR ??5 ? <15 mL/min ? Kidney failure or on dialysis Est GFR (Cockcroft-G) 130 ml/MIN [facility] Comment: Estimated GFR(Cockroft-Gault)is used to calculate patient medication dosage Calcium 8.9 8.6 - 10.3 mg/dL [facility] Total Protein 7.3 6.4 - 8.3 g/dL [facility] Albumin 4.1 3.5 - 5.0 g/dL [facility] Globulin 3.2 2.3 - 3.5 gm/dL [facility] Albumin/Globulin Ratio 1.3 1.1 - 1.8 [facility] Total Bilirubin 0.5 0.0 - 1.2 mg/dL [facility] AST 39(H) 0 - 32 U/L [facility] ALT 67(H) 0 - 33 U/L [facility] Alkaline Phosphatase 46 35 - 104 U/L [facility] 11/16/2018 10:1 7 AM CDT 11/16/2018 10:22 AM CDT Narrative Resulting Agency Comment ER Prakash Ochoa MD LAB BLOOD ORDERABLES Final Result [facility] [address] [place] [address], [facility] [phone] * (ABNORMAL) CBC with auto differential (11/16/2018 10:17 AM CDT) WBC 3.1(L) 3.8 - 9.9 X10 3/ul [facility] RBC 4.23 3.90 - 5.20 x10 6/ul [facility] Hemoglobin 11.5(L) 11.9 - 15.5 g/dL [facility] Hct 36.5 35.6 - 45.5 % [facility] MCV 86.3 81.3 - 96.4 fl [facility] MCH 27.2 27.1 - 33.3 pg [facility] MCHC 31.5(L) 32.3 - 35.7 g/dl [facility] RDW 16.5(H) 11.1 - 14.9 % [facility] Plt Count 228 150 - 400 x10 3/ul [facility] MPV 9.8 9.1 - 12.3 fl [facility] Neut % 59.4 % [facility] Immature Gran % 0.3 % [facility] Lymph % 28.6 % [facility] [place] % 10.1 % [facility] Eos % 1.0 % [facility] AUTO BASO % 0.6 % [facility] NEUTROPHIL ABS # 1.8 1.7 - 6.5 x10 3/ul [facility] Immature Gran # 0.0 0.0 - 0.1 x10 3/ul [facility] Absolute Lymphs (auto) 0.9 0.8 - 3.3 x10 3/ul [facility] Absolute Monos (auto) 0.3 0.2 - 0.8 x10 3/ul [facility] Absolute Eos (auto) 0.0 0.0 - 0.5 x10 3/ul [facility] BASOPHIL ABS # 0.0 0.0 - 0.1 x10 3/ul [facility] Nucleat RBC Rel Count 0.0 #/100WBC [facility] NRBC abs 0.00 0.00 - 0.01 x10 3/ul [facility] Absolute Neutrophils 1,800 200 - 8,000 /ul [facility] 11/16/2018 10:1 7 AM CDT 11/16/2018 10:22 AM CDT Narrative Resulting Agency Comment ER us Notinfile Unknown LAB BLOOD ORDERABLES Final Res ult [facility] [address] [place] [address], [facility] [phone] * B-type natriuretic peptide (11/16/2018 10:14 AM CDT) Pathologist [facility] B-Natriuretic Peptide 10 0 - 100 pg/mL [facility] Comment: B Natriutetic Peptide METHOD: ??Siemens Centaur XP using DION. Decision threshold of 100 pg/mL has been demonstrated to provide the maximal combination of sensitivity, specificity, and predictive value for the diagnosis of congestive heart failure (CHF). ??Virtually all patients with no evidence of CHF have BNP values <100 pg/mL. NOTE: ??Nesiritide (Natrecor) interferes with the BNP assay. BNP result will be invalid if drawn within 2 hours of bolus or infusion of nesiritide. 11/16/2018 10:1 4 AM CDT 11/16/2018 11:14 AM CDT Narrative Resulting Agency Comment ER Prakash Ochoa MD LAB BLOOD ORDERABLES Final Result Performing Organization Address [facility]/ZIP Co de Phone Number [address] [phone] * D-dimer, quantitative (11/16/2018 10:14 AM CDT) [facility] D-Dimer, Quantitative 0.45 0.00 - 0.50 FEUug/ml [facility] Comment: Studies indicate that a D-Dimer level of <0.50 FEUug/ml has a >95% negative predictive value for DVT,DIC,PE and other embolus conditions. ??Levels >0.50 FEUug/ml may be present in a wide variety of conditions and should not be considered diagnostic of any disease state. 11/16/2018 10:1 4 AM CDT 11/16/2018 11:12 AM CDT Narrative Resulting Agency Comment ER us Prakash Ochoa MD LAB BLOOD ORDERABLES Final Result Performing Organization Address City/[facility]/ZIP Co de Phone Number [address] [phone] * (ABNORMAL) URINALYSIS, COMPLETE W/REFLEX TO CULTURE (11/16/2018 10:07 AM CDT) Ur Collection Type CLEAN CATCH [facility] Ur Culture Indicated? C S NOT INDICATED [facility] Urine Color YELLOW YELLOW [facility] Urine Clarity Slightly-Keihsa udy CLEAR [facility] Urine Glucose (UA) NORMAL NORMAL mg/dL [facility] Urine Bilirubin NEGATIVE NEGATIVE mg/dl [facility] Urine Ketones NEGATIVE NEGATIVE mg/dL [facility] Ur Specific Dawson 1.024 1.005 - 1.025 [facility] Urine Blood NEGATIVE NEGATIVE mg/dl [facility] Urine pH 5.0 5.0 - 8.0 [facility] Urine Protein 30(A) NEGATIVE mg/dL [facility] Urine Urobilinogen NORMAL NORMAL mg/dL [facility] Urine Nitrite NEGATIVE NEGATIVE [facility] Ur Leukocyte Esterase NEGATIVE NEGATIVE Murphy/ul [facility] Ur Microscopic Review Indicated or Ordered [facility] Urine RBC 3 0 - 2 /HPF [facility] Urine WBC 2 0 - 2 /HPF [facility] Urine Mucus RARE /LPF [facility] Ur Squamous Epith Cells Few /HPF [facility] 11/16/2018 10:0 7 AM CDT 11/16/2018 12:09 PM CDT Narrative [facility] - 11/16/2018 12:21 PM CDT Indication(s) for ordering ?? Other - enter in comments ag Clean catch Resulting Agency Comment ER us Prakash Ochoa MD LAB URINE ORDERABLES Final Result [facility] [address] [place] [address], [facility] [phone] * XR Hand Left 3 or More Views (11/16/2018 12:00 AM CDT) Anatomical Region Laterality Modality Upper Extremities, Hand Left Radiogra phic Imaging 11/16/2018 10:4 4 AM CDT Narrative 11/16/2018 10:48 AM CDT Patient Name: UMER ELDER ?Ordering Dr: Minal May PA-C ?? D.O.B: 1990 ? Exam Date: 11/16/18 ?? 0000 ?? Age: 28 ?Sex: Female ? MR#: [id number] ?? Loc: ? RADIOLOGY REPORT ?? Order #[id number] ?? Radiology ? Hand Left 3 View Min ? Signed ?? EXAM DESCRIPTION: ??Hand Left 3 View Min ? REASON FOR STUDY: ??Fall with hyperextension injury to the fingers yesterday ? TECHNIQUE: ??Frontal, lateral, and oblique radiographic views acquired of the ?? left hand. ? COMPARISON: ??None ? FINDINGS: ?BONES/JOINTS: There is no acute fracture or dislocation.The joint spaces are ?? normal. ? SOFT TISSUES: Unremarkable. ? IMPRESSION: ??No acute osseous abnormality. ? THIS IS AN ELECTRONICALLY VERIFIED FINAL REPORT ?? 11/16/2018 10:48 AM - Electronically signed by Niles Gutierres M.D. ?? Niles Gutierres M.D. ? RIK ?? D: ??11/16/2018 10:48 AM ?? T: ? Report ID: [id number] ?? Reading Location: ??[id number] ? REPORT ELECTRONICALLY SIGNED IN OTHER VENDOR SYSTEM ?? Resulting Agency Comment E Procedure Note Niles Gutierres MD - 11/16/2018 Patient Name: UMER ELDER Dr: Minal May PA-C, D.O.B: 1990 Exam Date: 11/16/18 0000 Age: 28 Sex: Female MR#: [id number] Loc: RADIOLOGY REPORT Order #[id number] Radiology Hand Left 3 View Min Signed EXAM DESCRIPTION: Hand Left 3 View Min REASON FOR STUDY: Fall with hyperextension injury to the fingersyester TECHNIQUE: Frontal, lateral, and oblique radiographic views acquired ofthe left hand. COMPARISON: None FINDINGS: BONES/JOINTS: There is no acute fracture or dislocation.The joint spacesare normal. SOFT TISSUES: Unremarkable. IMPRESSION: No acute osseous abnormality. THIS IS AN ELECTRONICALLY VERIFIED FINAL REPORT 11/16/2018 10:48 AM - Electronically signed by Niles JOLLY T: Report ID: [id number] Reading Location: [place] [address] REPORT ELECTRONICALLY SIGNED IN OTHER VENDOR SYSTEM us [facility] IMG XR PROCEDURES Final Result documented in this encounter Visit Diagnoses Not on filedocumented in this encounter Care Teams Bean Roaster Relationship Specialty [place] [address] [place] [address] PCP - General 11/16/18 06/24/19 [place] [address] [address] [place] [address] 11/16/18 documented as of this encounter
--- OUTSIDE RECORDS SUMMARY | 2024-02-24 20:17 | XMS_ITS | Encounter Summary ---
Author Organization [facility] Address [address] [place] [address] Care Team Providers Care Spray Painter Name Role Phone Huseyin Dangelo MD Primary Care Provider [phone] Huseyin Dangelo MD Unavailable [phone] Encounter Details Date Type Department Care Team (Late st Contact Info) Description 12/17/2018 Telephone [facility] Hand Surgery [address] [place] [address] Chino Zaldivar MD [address] [place] [address] Social History Tobacco Use Types Packs/Day [...] Refills Last Filled Start Date End Date pregabalin (LYRICA) 75 mg capsule Take 1 capsule (75 mg total) by mouth 2 (two) times a day 60 capsule 12/17/2018 9 documented in this encounter Miscellaneous Notes * Telephone Encounter - Kyra Zuñiga MA - 12/17/2018 10:58 AM CDT Discussed with TLB and pt to try Lyrica 75mg bid x 30 days. * Telephone Encounter - Lupis Guaman - 12/17/2018 9:01 AM CDT TLB Pt is calling because she states her surgery was over a week ago and she is still in an excruciating amount of pain documented in this encounter Plan of Treatment Not on file documented as of this encounter Visit Diagnoses Not on filedocumented in this encounter Care Teams Spray Painter Relationship Specialty [place] [address] [address] [place] [address] PCP - General 11/16/18 06/24/19 [place] [address] [address] [place] [address] 11/16/18 documented as of this encounter
--- OUTSIDE RECORDS SUMMARY | 2024-02-24 20:17 | XMS_ITS | Encounter Summary ---
Author Organization [facility] Healthcare Address [address] [place] [address] Care Team Providers Care Electronics Research Engineer Name Role Phone Huseyin Dangelo MD Primary Care Provider [phone] Huseyin Dangelo MD Unavailable [phone] Encounter Details Date Type Department Care Team (Late st Contact Info) Description 12/09/2018 9:08 AM CDT - 12/09/2018 11:59 PM CDT Hospital Encounter [facility] Chino Zaldivar MD [address] [facility] [address] [address] Discharge Disposition: Discharge to home or self [...] Sign Reading Time Taken Comments Blood Pressure 124/89 12/09/2018 12:05 PM CDT Pulse 92 12/09/2018 12:05 PM CDT Temperature 36.7 ??C (98.1 ??F) 12/09/2018 12:05 PM C DT Respiratory Rate - - Oxygen Saturation 99% 12/09/2018 12:05 PM CDT Inhaled Oxygen Concentration - - Weight 67 kg (147 lb 12.8 oz) 12/09/2018 12:05 P M CDT Height 157.5 cm (5' 2 ) 12/09/2018 12:05 PM CDT Body Mass Index 27.03 12/09/2018 12:05 PM CDT documented in this encounter Medications [...] on filedocumented in this encounter Care Teams Electronics Research Engineer Relationship Specialty Start [place] [address] [address] [place] [address] PCP - General 11/16/18 06/24/19 [place] [address] [address] [place] [address] 11/16/18 documented as of this encounter
--- OUTSIDE RECORDS SUMMARY | 2024-02-24 20:17 | XMS_ITS | Encounter Summary ---
Author Organization [facility] Care Team Providers Care Well Cleaner Name Role Phone Huseyin Dangelo MD Primary Care Provider [phone] Huseyin Dangelo MD Unavailable Encounter Details Date Type Department Care Team (Latest Contact Info) Description 12/18/2018 Travel Social History Tobacco Use Types Packs/Day [...] filedocumented in this encounter Care Teams Well Cleaner Relationship Specialty Start [place] [address] [address] [place] [address] PCP - General 11/16/18 06/24/19 [place] [address] [address] [place] [address] 11/16/18 documented as of this encounter
--- OUTSIDE RECORDS SUMMARY | 2024-02-24 20:17 | XMS_ITS | Encounter Summary ---
Author Organization [facility] Healthcare Address [address] [place] [address] Care Team Providers Care Manager Cash Name Role Phone Huseyin Dangelo MD Primary Care Provider [phone] Huseyin Dangelo MD Unavailable [phone] Encounter Details Date Type Department Care Team (Late st Contact Info) Description 12/25/2018 6:27 AM CDT - 12/25/2018 10:50 AM CDT Hospital Encounter [facility] [address] [place] [address] Unknown, [place] [address] [facility] [address] [place], [place] [id number] Discharge Disposition: Discharge to home or self [...] Sign Reading Time Taken Comments Blood Pressure 138/80 12/25/2018 6:28 AM CDT Pulse 82 12/25/2018 6:28 AM CDT Temperature 36.6 ??C (97.8 ??F) 12/25/2018 6:28 AM CD T Respiratory Rate - - Oxygen Saturation 97% 12/25/2018 6:28 AM CDT Inhaled Oxygen Concentration - - Weight 66.8 kg (147 lb 4.3 oz) 12/25/2018 6:28 A M CDT Height 157.5 cm (5' 2 ) 12/25/2018 6:28 AM CDT Body Mass Index 26.94 12/25/2018 6:28 AM CDT documented in this encounter Medications [...] Procedure Name Priority Date/Time Associated Diagnosis Comments SEPSIS LACTATE Routine 12/25/2018 9:32 AM CDT CBC WITH AUTO DIFFERENTIAL Routine 12/25/2018 9:32 AM CDT TROPONIN I Routine 12/25/2018 9:32 AM CDT BLOOD CULTURE Routine 12/25/2018 9:32 AM CDT APTT Routine 12/25/2018 9:32 AM CDT PROTIME-INR Routine 12/25/2018 9:32 AM CDT D-DIMER, QUANTITATIVE Routine 12/25/2018 9:32 AM CDT ETHANOL Routine 12/25/2018 9:32 AM CDT BASIC METABOLIC PANEL Routine 12/25/2018 9:32 AM CDT URINALYSIS AND REFLEX TO MICROSCOPIC AND CULTURE Routine 12/25/2018 8:05 AM CDT DRUGS OF ABUSE SCREEN, URINE WITHOUT CONFIRMATION Routine 12/25/2018 8:05 AM CDT ECG 12-LEAD 12/25/2018 8:03 AM CDT XR WRIST RIGHT 3 OR MORE VIEWS 12/25/2018 7:57 AM CDT XR CHEST PA LATERAL 2 VIEWS 12/25/2018 7:[address] HEAD WO CONTRAST 12/25/2018 1 2:00 AM CDT documented in this encounter Results * Blood culture Blood (12/25/2018 9:32 AM CDT) Pathologist [facility] CULTURE BLOOD ADULT (SET OF 2) NO GROWTH DAY 5 [facility] Blood 12/25/2018 9:32 AM CDT 12/25/2018 10:00 AM CDT us Golden Alvarado MD LAB MICROBIOLOGY - GENERA L ORDERABLES Final Result [facility] [address] [phone] * Ethanol (12/25/2018 9:32 AM CDT) [facility] Ethyl Alcohol <10 mg/dL [facility] Comment: % = mg/dL x .001 12/25/2018 9:32 AM CDT 12/25/2018 10:02 AM CDT Narrative Resulting Agency Comment ER us Golden Alvarado MD LAB BLOOD ORDERABLES Briana l Result Performing Organization Address City/[facility]/ZIP Co de Phone Number [address] [phone] * Troponin I (12/25/2018 9:32 AM CDT) Pathologist [facility] Troponin I <0.300 0.000 - 0.300 ng/mL [facility] Comment: Reference using FLORIDALMA Chemiluminescence ? Negative: Repeat in 4-6 hours as indicated. 12/25/2018 9:32 AM CDT 12/25/2018 10:02 AM CDT Narrative Resulting Agency Comment ER us Golden Alvarado MD LAB BLOOD ORDERABLES Briana l Result [address] [place] [address], [facility] [phone] * (ABNORMAL) Basic metabolic panel (12/25/2018 9:32 AM CDT) [facility] Sodium 141 135 - 145 mmol/L [facility] Potassium 3.3 3.3 - 5.1 mmol/L [facility] Chloride 105 96 - 108 mmol/L [facility] Carbon Dioxide 23 22 - 32 mmol/L [facility] Anion Gap 13 7 - 16 [facility] Glucose 86 70 - 100 mg/dL [facility] BUN 10 8 - 25 mg/dL [facility] Creatinine 0.4(L) 0.5 - 1.1 mg/dL [facility] Comment: NOTE: Estimated GFR (Cockroft-Gault) will NOT be calculated unless patient Height and Weight were entered. Also, Kidney Disease Stage (GFR) and Estimated GFR (Cockroft-Gault) will NOT be calculated if Creatinine result is <0.2. Kidney Disease Stage >90 mL/MIN [facility] Comment: NOTE; ??The GFR is an estimated [...] failure or on dialysis Est GFR (Cockcroft-G) 191 ml/MIN [facility] Comment: Estimated GFR(Cockroft-Gault)is used to calculate patient medication dosage Calcium 9.2 8.6 - 10.3 mg/dL [facility] 12/25/2018 9:32 AM CDT 12/25/2018 10:02 AM CDT Narrative Resulting Agency Comment ER us Golden Alvarado MD LAB BLOOD ORDERABLES Briana l Result Performing Organization Address [facility] de Phone Number [address] [phone] * Sepsis Lactate (12/25/2018 9:32 AM CDT) [facility] Sepsis lactate 1.3 mmol/L [facility] Comment: Lactate Reference Range: 0.5 - 2.2 mmol/L 12/25/2018 9:32 AM CDT 12/25/2018 10:00 AM CDT Narrative Resulting Agency Comment ER Golden Alvarado MD LAB BLOOD ORDERABLES Briana l Result Performing Organization Address [facility] de Phone Number [address] [phone] * D-dimer, quantitative (12/25/2018 9:32 AM CDT) Pathologist [facility] D-Dimer, Quantitative 0.29 0.00 - 0.50 FEUug/ml [facility] Comment: Studies indicate that a D-Dimer level of <0.50 FEUug/ml has a >95% negative predictive value for DVT,DIC,PE and other embolus conditions. ??Levels >0.50 FEUug/ml may be present in a wide variety of conditions and should not be considered diagnostic of any disease state. 12/25/2018 9:32 AM CDT 12/25/2018 10:02 AM CDT Narrative Resulting Agency Comment ER Golden Alvarado MD LAB BLOOD ORDERABLES Briana l Result Performing Organization Address [facility] Co de Phone Number [address] [phone] * (ABNORMAL) aPTT (12/25/2018 9:32 AM CDT) APTT 25(L) 27 - 36 SECONDS [facility] Comment: New reference ranges in use 08-23-18. 12/25/2018 9:32 AM CDT 12/25/2018 10:02 AM CDT Narrative Resulting Agency Comment ER Golden Alvarado MD LAB BLOOD ORDERABLES Briana l Result Performing Organization Address [facility] Co de Phone Number [address] [phone] * Protime-INR (12/25/2018 9:32 AM CDT) PT 12.8 12.2 - 14.8 SECONDS [facility] Comment: New reference ranges in use 08-23-18. INR 0.93 [facility] Comment: Recommended Therapeutic range for Oral Anticoagulant Therapy No anti-coagulation therapy ? Normal Range: ?0.8-1.4 Anti-coagulation therapy ? Low intensity therapy ?2.0-3.0 ? High intensity therapy ?? 2.5-3.5 Critical Value ? Greater than or equal to 5.0 Patients should be monitored for serious bleeding. 12/25/2018 9:32 AM CDT 12/25/2018 10:02 AM CDT Narrative Resulting Agency Comment ER us Golden Alvarado MD LAB BLOOD ORDERABLES Briana l Result [facility] [address] [phone] * (ABNORMAL) CBC with auto differential (12/25/2018 9:32 AM CDT) WBC 3.0(L) 3.8 - 9.9 X10 3/ul [facility] RBC 4.08 3.90 - 5.20 x10 6/ul [facility] Hemoglobin 11.8(L) 11.9 - 15.5 g/dL [facility] Hct 36.8 35.6 - 45.5 % [facility] MCV 90.2 81.3 - 96.4 fl [facility] MCH 28.9 27.1 - 33.3 pg [facility] MCHC 32.1(L) 32.3 - 35.7 g/dl [facility] RDW 15.5(H) 11.1 - 14.9 % [facility] Plt Count 127(L) 150 - 400 x10 3/ul [facility] MPV 11.4 9.1 - 12.3 fl [facility] Neut % 57.5 % [facility] WaveMAX AST - Destination [employer] Immature Gran % 0.0 % [facility] Lymph % 28.3 % [facility] E AST - [employer]ination [employer] [place] % 13.2 % [facility] E AST - Latio Eos % 0.7 % [facility] E AST - Latio AUTO BASO % 0.3 % [facility] NEUTROPHIL ABS # 1.8 1.7 - 6.5 x10 3/ul [facility] Immature Gran # 0.0 0.0 - 0.1 x10 3/ul [facility] Absolute Lymphs (auto) 0.9 0.8 - 3.3 x10 3/ul [facility] Absolute Monos (auto) 0.4 0.2 - 0.8 x10 3/ul [facility] Absolute Eos (auto) 0.0 0.0 - 0.5 x10 3/ul [facility] BASOPHIL ABS # 0.0 0.0 - 0.1 x10 3/ul [facility] Nucleat RBC Rel Count 0.0 #/100WBC [facility] NRBC abs 0.00 0.00 - 0.01 x10 3/ul [facility] Absolute Neutrophils 1,800 200 - 8,000 /ul [facility] 12/25/2018 9:32 AM CDT 12/25/2018 10:02 AM CDT Narrative Resulting Agency Comment ER us Golden Alvarado MD LAB BLOOD ORDERABLES Briana l Result [address] [phone] * Drugs of Abuse Screen, Urine without Confirmation (12/25/2018 8:05 AM CDT) Amphetamines NOT DETECTED [facility] Comment: This assay uses 500 ng/mL as a cutoff for a positive result. Barbiturates NOT DETECTED [facility] Comment: This assay uses 200 ng/mL as a cutoff for a positive result. Urine Fentanyl NOT DETECTED [facility] Comment: This assay uses 1 ng/mL as a cutoff for a positive result. Benzodiazepines NOT DETECTED [facility] Comment: This assay uses 100 ng/mL as a cutoff for a positive result. Cannabinoids NOT DETECTED [facility] Comment: This assay uses 50 ng/mL as a cutoff for a positive result. Cocaine NOT DETECTED [facility] Comment: This assay uses 150 ng/mL as a cutoff for a positive result. Opiates NOT DETECTED [facility] Comment: This assay uses 300 ng/mL as a cutoff for a positive result. Urine methadone NOT DETECTED [facility] Comment: This assay uses 300 ng/mL as a cutoff for a positive result. Urine phencyclidine plus NOT DETECTED [facility] Comment: This assay uses 25 ng/mL as a cutoff for a positive result. Oxycodone NOT DETECTED [facility] Comment: This assay uses 100 ng/mL as a cutoff for a positive result. Urine Creatinine/CHRISTINA 64.5 mg/dL [facility] Comment: If Creatinine is < 40 mg/dL, recollection is suggested. 12/25/2018 8:05 AM CDT 12/25/2018 8:14 AM CDT Narrative [facility] - 12/25/2018 8:40 AM CDT Collected By JK Resulting Agency Comment ER us Golden Alvarado MD LAB URINE ORDERABLES Briana narayan Result [address] [phone] * Urinalysis reflex to microscopic and culture (12/25/2018 8:05 AM CDT) Ur Collection Type CLEAN CATCH [facility] Ur Culture Indicated? C S NOT INDICATED [facility] Urine Color STRAW YELLOW [facility] Urine Clarity CLEAR CLEAR [facility] Urine Glucose (UA) NORMAL NORMAL mg/dL [facility] Urine Bilirubin NEGATIVE NEGATIVE mg/dl [facility] Urine Ketones NEGATIVE NEGATIVE mg/dL [facility] Ur Specific [place] 1.014 1.005 - 1.025 [facility] Urine Blood NEGATIVE NEGATIVE mg/dl [facility] Urine pH 7.0 5.0 - 8.0 [facility] Urine Protein NEGATIVE NEGATIVE mg/dL [facility] Urine Urobilinogen NORMAL NORMAL mg/dL [facility] Urine Nitrite NEGATIVE NEGATIVE [facility] Ur Leukocyte Esterase NEGATIVE NEGATIVE Murphy/ul [facility] Ur Microscopic Review Not Indicated [facility] 12/25/2018 8:05 AM CDT 12/25/2018 8:14 AM CDT Narrative [facility] - 12/25/2018 8:24 AM CDT Indication(s) for ordering ?? Delirium/malaise/lethargy JK Clean catch Resulting Agency Comment ER us Golden Alvarado MD LAB MICROBIOLOGY - GENERA L ORDERABLES Final Result Performing Organization Address [facility] [place] [address], [facility] [phone] * ECG 12 lead (12/25/2018 8:03 AM CDT) Ventricular Rate EKG/Min 80 BPM [facility] Atrial Rate 80 BPM [facility] [place]-Interval (MSEC) 132 ms [facility] QRS-Interval (MSEC) 82 ms [facility] QT-Interval (MSEC) 386 ms [facility] QTc 445 ms [facility] P [place] 38 degrees [facility] R [place] 16 degrees [facility] T [place] 9 degrees [facility] Diagnosis Normal sinus rhythm Normal ECG No previous ECGs available [facility] 12/25/2018 8:03 AM CDT 12/25/2018 2:38 PM CDT Narrative Resulting Agency Comment JAMA us Golden Alvarado MD ECG ORDERABLES Final Res ult Performing Organization Address [facility] de Phone Number [facility] * XR Wrist Right 3 or More Views (12/25/2018 7:57 AM CDT) Anatomical Region Laterality Modality Upper Extremities, Wrist Right Radiogr aphic Imaging 12/25/2018 8:06 AM CDT Narrative 12/25/2018 8:07 AM CDT Patient Name: UMER ELDER ?Ordering : Golden Alvarado MD ?? D.O.B: 1990 ? Exam Date: 12/25/19 ?? 0757 ?? Age: 28 ?Sex: Female ? MR#: [id number] ?? Loc: ? RADIOLOGY REPORT ?? Order #[id number] ?? Radiology ? Wrist RT 3 View Min ? Signed ? EXAM DESCRIPTION: ??Wrist RT 3 View Min ? REASON FOR STUDY: ??Right wrist pain, onset 2 weeks ago after surgery ? TECHNIQUE: ??Frontal, lateral, and oblique radiographic views acquired of the ?? right wrist. ? COMPARISON: ??Right wrist radiographs 12/01/2018 ? FINDINGS: ? BONES/JOINTS: The right wrist is in normal anatomic alignment with no fracture ?? or other osseous abnormality. ??The joint spaces of the right wrist are normal. ? SOFT TISSUES: There are no radiopaque foreign bodies in the right wrist. ? OTHER: No other significant finding. ? IMPRESSION: ??Normal alignment of the right wrist with no fracture or other ?? osseous abnormality. ? THIS IS AN ELECTRONICALLY VERIFIED FINAL REPORT ?? 12/25/2018 8:07 AM - Electronically signed by Cirilo Joiner M.D. ?? Cirilo Joiner M.D. ? CN: CN ?? D: ??12/25/2018 8:07 AM ?? T: ??12/25/2018 8:07 AM ? Report ID: [id number] ?? Reading Location: ??[id number] ? REPORT ELECTRONICALLY SIGNED IN OTHER VENDOR SYSTEM ?? Resulting Agency Comment E Procedure Note Cirilo Joiner MD - 12/25/2018 Patient Name: UMER ELDER Dr: Golden Alvarado MD D.O.B: 1990 Exam Date: 12/25/18 0757 Age: 28 Sex: Female MR#: [id number] Loc: RADIOLOGY REPORT Order #[id number] Radiology Wrist RT 3 View Min Signed EXAM DESCRIPTION: Wrist RT 3 View Min REASON FOR STUDY: Right wrist pain, onset 2 weeks ago after surgery TECHNIQUE: Frontal, lateral, and oblique radiographic views acquired ofthe right wrist. COMPARISON: Right wrist radiographs 12/01/2018 FINDINGS: BONES/JOINTS: The right wrist is in normal anatomic alignment with nofracture or other osseous abnormality. The joint spaces of the right wrist arenormal. SOFT TISSUES: There are no radiopaque foreign bodies in the right wrist. OTHER: No other significant finding. IMPRESSION: Normal alignment of the right wrist with no fracture orother osseous abnormality. THIS IS AN ELECTRONICALLY VERIFIED FINAL REPORT 12/25/2018 8:07 AM - Electronically signed by Cirilo Joiner M.D. CN: BLAYNE Report ID: [id number] Reading Location: [id number] REPORT ELECTRONICALLY SIGNED IN OTHER VENDOR SYSTEM us Golden Alvarado MD IMG XR PROCEDURES Final R esult * XR Chest Pa Lateral 2 Views (12/25/2018 7:56 AM CDT) Anatomical Region Laterality Modality Body, Chest N/A Radiographic Simin ging 12/25/2018 8:06 AM CDT Narrative 12/25/2018 8:06 AM CDT Patient Name: UMER ELDER ?Ordering Dr: Golden Alvarado MD ?? D.O.B: 1990 ? Exam Date: 12/25/18 ?? 075 ?? Age: 28 ?Sex: Female ? MR#: [id number] ?? Loc: ? RADIOLOGY REPORT ?? Order #[id number] ?? Radiology ? Chest 2 Views ? Signed ? EXAM DESCRIPTION: ??Chest 2 Views ? REASON FOR STUDY: ??Syncope, nausea, and vomiting, onset 2 weeks ago ? TECHNIQUE: ??Frontal and lateral radiographic views of the chest acquired. ? COMPARISON: ??None available ? FINDINGS: ? LUNGS/PLEURA: No focal consolidation or pneumothorax. No pleural effusion. ? HEART/MEDIASTINUM: The cardiac silhouette and mediastinal contours are within ?? normal limits. ? HARDWARE/LINES/TUBES: None. ? BONES: No acute findings. ? OTHER: No other significant finding. ? IMPRESSION: ??No acute cardiopulmonary process. ? THIS IS AN ELECTRONICALLY VERIFIED FINAL REPORT ?? 12/25/2018 8:06 AM - Electronically signed by Cirilo Joiner M.D. ?? Cirilo Joiner M.D. ? CN: CN ?? D: ??12/25/2018 8:06 AM ?? T: ??12/25/2018 8:06 AM ? Report ID: [id number] ?? Reading Location: ??[id number] ? REPORT ELECTRONICALLY SIGNED IN OTHER VENDOR SYSTEM ?? Resulting Agency Comment E Procedure Note Cirilo Joiner MD - 12/25/2018 Patient Name: UMER ELDER Dr: Golden Alvarado MD D.O.B: 1990 Exam Date: 12/25/18 0756 Age: 28 Sex: Female MR#: [id number] Loc: RADIOLOGY REPORT Order #[id number] Radiology Chest 2 Views Signed EXAM DESCRIPTION: Chest 2 Views REASON FOR STUDY: Syncope, nausea, and vomiting, onset 2 weeks ago TECHNIQUE: Frontal and lateral radiographic views of the chest acquired. COMPARISON: None available FINDINGS: LUNGS/PLEURA: No focal consolidation or pneumothorax. No pleuraleffusion. HEART/MEDIASTINUM: The cardiac silhouette and mediastinal contours arewithin normal limits. HARDWARE/LINES/TUBES: None. BONES: No acute findings. OTHER: No other significant finding. IMPRESSION: No acute cardiopulmonary process. THIS IS AN ELECTRONICALLY VERIFIED FINAL REPORT 12/25/2018 8:06 AM - Electronically signed by Christophwilliam Joiner M.D. CN: CN Report ID: [id number] Reading Location: [id number] REPORT ELECTRONICALLY SIGNED IN OTHER VENDOR SYSTEM us Golden Alvarado MD IMG XR PROCEDURES Final R esult * CT Head WO Contrast (12/25/2018 12:00 AM CDT) Anatomical Region Laterality Modality Head and Neck N/A Computed Tomogra phy 12/25/2018 7:51 AM CDT Narrative 12/25/2018 7:53 AM CDT Patient Name: UMER ELDER ?Ordering Dr: Golden Alvarado MD ?? D.O.B: 1990 ? Exam Date: 12/25/18 ?? 0000 ?? Age: 28 ?Sex: Female ? MR#: [id number] ?? Loc: ? RADIOLOGY REPORT ?? Order #[id number] ?? CT Scan ? CT Head WO IV Contrast ? Signed ? EXAM DESCRIPTION: ??CT Head WO IV Contrast ? REASON FOR STUDY: ??Syncope, nausea, and vomiting, onset 1 week ago ? TECHNIQUE: ??Axial computed tomographic images acquired through the brain ?? without intravenous contrast. ??Images stored on PACS. ?? Automated exposure ?? control was used as a dose optimization technique for this examination. ? COMPARISON: ??None available ? FINDINGS: ? BRAIN: No hemorrhage, edema or mass effect. No recent infarct. Normal white ?? matter. ? EXTRA-AXIAL SPACES: No fluid collections. No masses. ? CALVARIUM: No fracture. ? SINUSES/MASTOIDS: No fluid or mucosal thickening. ? ORBITS: No significant abnormality. ? OTHER: No other significant abnormality. ? IMPRESSION: ??No CT evidence of an acute intracranial process. ? THIS IS AN ELECTRONICALLY VERIFIED FINAL REPORT ?? 12/25/2018 7:53 AM - Electronically signed by Cirilo Joiner M.D. ?? Cirilo Joiner M.D. ? CN: CN ?? D: ??12/25/2018 7:53 AM ?? T: ??12/25/2018 7:53 AM ? Report ID: [id number] ?? Reading Location: ??[id number] ? REPORT ELECTRONICALLY SIGNED IN OTHER VENDOR SYSTEM ?? Resulting Agency Comment E Procedure Note Cirilo Joiner MD - 12/25/2018 Patient Name: UMER ELDER Dr: Golden Alvarado MD D.O.B: 1990 Exam Date: 12/25/18 0000 Age: 28 Sex: Female MR#: [id number] Loc: RADIOLOGY REPORT Order #[id number] CT Scan CT Head WO IV Contrast Signed EXAM DESCRIPTION: CT Head WO IV Contrast REASON FOR STUDY: Syncope, nausea, and vomiting, onset 1 week ago TECHNIQUE: Axial computed tomographic images acquired through the brain without intravenous contrast. Images stored on PACS. Automatedexposure control was used as a dose optimization technique for this examination. COMPARISON: None available FINDINGS: BRAIN: No hemorrhage, edema or mass effect. No recent infarct. Normalwhite matter. EXTRA-AXIAL SPACES: No fluid collections. No masses. CALVARIUM: No fracture. SINUSES/MASTOIDS: No fluid or mucosal thickening. ORBITS: No significant abnormality. OTHER: No other significant abnormality. IMPRESSION: No CT evidence of an acute intracranial process. THIS IS AN ELECTRONICALLY VERIFIED FINAL REPORT 12/25/2018 7:53 AM - Electronically signed by Cirilo Joiner M.D. CN: BLAYNE Report ID: [id number] Reading Location: [place] [address] REPORT ELECTRONICALLY SIGNED IN OTHER VENDOR SYSTEM Golden Alvarado MD IMG CT PROCEDURES Final R esult documented in this encounter Visit Diagnoses Not on filedocumented in this encounter Care Teams Manager Cash Relationship Specialty [place] [address] [address] [place] [address] PCP - General 11/16/18 06/24/19 [place] [address] [address] [place] [address] 11/16/18 documented as of this encounter
--- OUTSIDE RECORDS SUMMARY | 2024-02-24 20:17 | XMS_ITS | Encounter Summary ---
Author Organization [facility] Address [address] [place] [address] Care Team Providers Care Tuber Machine Operator Helper Name Role Phone Huseyin Dangelo MD Primary Care Provider [phone] Huseyin Dangelo MD Unavailable [phone] Reason for Visit * Reason Comments Post-op Encounter Details Date Type Department Care Team (Late st Contact Info) Description 12/13/2018 9:15 AM CDT Office Visit [facility] Hand Surgery [address] [place] [id number] Chino Zaldivar MD [address] [place] [address] [address] Laceration of flexor muscle, fascia and tendon [...] Progress Notes * Chino Zaldivar MD - 12/13/2018 9:15 AM CDT Images from the original note were not included. Patient ID: Carito Rausch is a 28 y.o. female. Visit Date: 12/13/2018 Chief Complaint: She reports continue numbness involving the median nerve digits. HPI: She reports no fevers or chills no feeling of instability Review of Systems There were no vitals taken for this visit. Physical Exam: Healing incision with no signs of infection Xray / Imaging: None 1. Laceration of flexor muscle, fascia and tendon of right little finger at wrist and hand level, initial encounter PLAN: Answered multiple questions. I will follow-up with her a at her previously scheduled visit Procedures documented in this encounter Plan of Treatment Not on file documented as of this encounter Visit Diagnoses Diagnosis Laceration of flexor muscle, fascia and tendon of right little finger at wrist and hand level, initial encounter- Primary documented in this encounter Care Teams Tuber Machine Operator Helper Relationship Specialty Start [place] [address] [address] [place] [address] PCP - General 11/16/18 06/24/19 [place] [address] [address] [place] [address] 11/16/18 documented as of this encounter
--- OUTSIDE RECORDS SUMMARY | 2024-02-24 20:17 | XMS_ITS | Encounter Summary ---
Author Organization [facility] Healthcare Address [address] [place] [address] Care Team Providers Care Churn Operator Name Role Phone Huseyin Dangelo MD Primary Care Provider Reason for Visit * Reason Comments Leg Swelling Vomiting Encounter Details Date Type Department Care Team (Latest Contact Info) Description 10/03/2018 1:32 PM CDT - 10/03/2018 4:55 PM CDT Emergency [facility] Emergency Department [address] [place] [address] Gastroesophageal reflux disease without esophagitis (Primary Dx); Myalgia Discharge Disposition: Discharge to home or self [...] Sign Reading Time Taken Comments Blood Pressure 125/86 10/03/2018 1:08 PM CDT Pulse 100 10/03/2018 1:08 PM CDT Temperature 36.7 ??C (98 ??F) 10/03/2018 1:08 PM CDT Respiratory Rate 20 10/03/2018 1:08 PM CDT Oxygen Saturation 98% 10/03/2018 1:08 PM CDT Inhaled Oxygen Concentration - - Weight 63.5 kg (140 lb) 10/03/2018 1:08 PM CDT Height 157.5 cm (5' 2 ) 10/03/2018 1:08 PM CDT Body Mass Index 25.61 10/03/2018 1:08 PM CDT documented in this encounter Discharge Diagnoses Diagnosis Gastro-esophageal reflux disease without esophagitis - GASTRO-ESOPHAGEAL REFLUX DISEASE WITHOUT ESOPHAGITIS Myalgia, unspecified site - MYALGIA, UNSPECIFIED SITE Systemic lupus erythematosus (CMS/HCC) (HCC) - SYSTEMIC LUPUS ERYTHEMATOSUS, UNSPECIFIED Systemic lupus erythematosus Chronic pain syndrome - CHRONIC PAIN SYNDROME documented in this encounter Discharge Instructions * Discharge Instructions* Remedios Moses NP - 10/03/2018 4:06 PM CDT Please continue take the daily omeprazole, may take an additional Mylanta or Maalox as needed. Please go to the rheumatology appointment as scheduled next Sunday. documented in this encounter Medications at Time [...] documented in this encounter ED Notes * Remedios Moses NP - 10/03/2018 3:13 PM CDT HPI Chief Complaint Patient presents with ??? Leg Swelling ??? Vomiting HPI Patient is 28-year-old female with a PMHx lupus, fibromyalgia, chronic pain syndrome presents to the emergency department diffuse joint pain and cramping. Patient endorses symptoms have been going onfor several months. Of note patient has a 9 ER visits in the last 30 days with same complaint, over20 ER visits since 05/2018 with variations of same complaint in which she has undergone extensive workup and imaging. Most recently, she had a chest CT on 10/01 which was unremarkable for blood clot and Doppler of bilateral lower extremities on 10/02 was unremarkable for blood clots, patient presents requesting further testing for blood clots. Additionally patient reports right upper quadrant pain exacerbated with eating and endorses multiple episodes of emesis today. Denies bloody emesis, fever, body aches or chills. Patient currently under evaluation of a coring machine operator for workup for possible rheumatoid arthritis. Recently started on ARAVA and daily prednisone, has stopped the Arava by her own decision because she did not like ???the moist made her feel.?? Patient denies dysuria, vaginal bleeding, vaginal discharge. Denies unexplained weight loss. Has a coring machine operator appointment on10/08/2018. Allergies: Methylprednisolone Patient History There are no active problems to display for this patient. Past Medical History: Diagnosis Date ??? Fibromyalgia ??? Lupus (CMS/HCC) ??? 07/13/2015 Past Surgical History: Procedure Laterality Date ??? APPENDECTOMY ??? DILATION AND CURETTAGE OF UTERUS History reviewed. No pertinent family history. Social History Tobacco Use ??? Smoking status: [...] visual disturbance. Respiratory: Negative for cough, chest tightness and shortness of breath. Cardiovascular: Negative for chest pain and palpitations. Gastrointestinal: Positive for abdominal pain and vomiting. Negative for blood in stool. Endocrine: Negative. Genitourinary: Negative for difficulty urinating, dysuria, flank pain, hematuria, pelvic pain, vaginal bleeding, vaginal discharge and vaginal pain. Musculoskeletal: Positive for arthralgias. Negative for back pain, neck pain and neck stiffness. Skin: Negative for color change and rash. Neurological: Negative for dizziness, seizures, syncope and headaches. Hematological: Negative. Psychiatric/Behavioral: The patient is nervous/anxious. All other systems reviewed and are negative. Breast: Negative. Physical Exam ED Triage Vitals [10/03/18 1308] Temp Pulse Resp BP SpO2 36.7 ??C (98 ??F) 100 20 125/86 98 % Temp src Heart Rate Source Patient Position BP Location FiO2 (%) Oral Monitor Sitting Left arm -- Physical Exam Constitutional: She is oriented to person, place, and time. She appears well- developed and well-nourished. No distress. HENT: Head: Normocephalic and atraumatic. Mouth/Throat: Oropharynx is clear and moist. Eyes: Conjunctivae and EOM are normal. Neck: Normal range of motion. Neck supple. No JVD present. Cardiovascular: Normal rate, regular rhythm, normal heart sounds and intact distal pulses. No murmur heard. Pulmonary/Chest: Effort normal and breath sounds normal. No respiratory distress. She has no wheezes. Abdominal: Soft. Bowel sounds are normal. She exhibits no distension. There is no tenderness. Thereis no guarding. Musculoskeletal: Normal range of motion. She exhibits no edema or deformity. Distal pulses intact, 5/5 strength in all 4 extremities. No obvious edema or swelling. Neurological: She is alert and oriented to person, place, and time. No cranial nerve deficit. Skin: Skin is warm and dry. All 4 extremities warm, dry, pink. Psychiatric: She has a normal mood and affect. Nursing note and vitals reviewed. MDM MDM Number of Diagnoses or Management Options Diagnosis management comments: Medical decision making: Patient is 28 year old female with past medical history of lupus, fibromyalgia, and possibly rheumatoid arthritis currently under the care of Rheumatology presents emergency para diffuse myalgias and arthralgias which have been present for several months. Patient has been to over 4 ERs in the [facility] at least 20 times a since May/2018. Most recently she presented to [facility] emergency department on 10/01/2018 and 10/02/2018 inich she was concern for blood clot, underwent chest CT and bilateral lower extremity Dopplers which were both on diagnostic for blood clot. Patient presents to this emergency department for furtherevaluation of blood clots and new epigastric/right upper quadrant abdominal pain exacerbated with eating. Plan for labs, UA, IV hydration, and right upper quadrant ultrasound to rule out acute gallbladder. Amount and/or Complexity of Data Reviewed Clinical lab tests: reviewed and ordered Tests in the radiology section of CPT??: ordered and reviewed Review and summarize past medical records: yes (Previous emergency department visit summary is) ED Course as of Oct 05 1131 Time: 10/03 1538 Value: US RUQ Comment: Impression Normal right upper quadrant sonogram. By: Remedios Moses NP Time: 10/03 1607 Comment: Patient afebrile, labs unremarkable, and ultrasound unremarkable, she is safe for discharge. No episodes of emesis since arrival to emergency department approximately 5 hours. Patient has had extensive workup in the recent months. She has an appointment with Rheumatology on Sunday, plans to follow up without fail By: Remedios Moses NP Gastroesophageal reflux disease without esophagitis Myalgia Remedios Moses NP 10/04/18 1133 * Chente Reynolds RN - 10/03/2018 2:49 PM CDT Bed: ED3-10 Expected date: Expected time: Means of arrival: Comments: Shalom: Chente Reynolds RN 10/03/18 1449 * Lisa Salvador RN - 10/03/2018 1:15 PM CDT Patient presents with epigastric pain onset today, +Nausea and has had twelve episodes of vomiting since this morning, patient also voices that she feels the her legs are swollen bilaterally, patientwas seen at OSH yesterday and had a chest CT scan and ultrasound on bilateral legs for suspicion ofa blood clot due to her D-dimer being high, reports all exams were negative, patient voices that she feels that they are missing something and wants further evaluation documented in this encounter Plan of Treatment Not on file documented as of this encounter Procedures Procedure Name Priority Date/Time Associated Diagnosis Comments US RUQ ED 10/03/2018 3:13 PM CDT URINALYSIS AND REFLEX TO MICROSCOPIC STAT 10/03/2018 3:00 PM CDT URINALYSIS, MICROSCOPIC ONLY STAT 10/03/2018 3:00 PM CDT DIFFERENTIAL AUTO STAT 10/03/2018 2:0 9 PM CDT CBC WITH AUTO DIFFERENTIAL STAT 10/03/2018 2:09 PM CDT LIPASE STAT 10/03/2018 2:09 PM CDT COMPREHENSIVE METABOLIC PANEL STAT 10/03/2018 2:09 PM CDT documented in this encounter Results * US RUQ (10/03/2018 3:13 PM CDT) Anatomical Region Laterality Modality Abdomen N/A Ultrasound 10/03/2018 3:19 PM CDT Impressions 10/03/2018 3:37 PM CDT Normal right upper quadrant sonogram. Dictated by: Dima Xavier IV, M.D. The radiology attending physician has personally reviewed this study, and had reviewed and/or edited this written report and agrees with it. Electronically signed by: Emily Russo M.D. Narrative 10/03/2018 3:37 PM CDT EXAMINATION: ??LIMITED ABDOMINAL SONOGRAM HISTORY: ??Epigastric pain, right upper quadrant pain, history of lupus COMPARISON: ??None FINDINGS: ?? Liver: The liver is normal in size. ??The echotexture is normal. ??The echogenicity is normal. There is no surface nodularity. No focal solid lesions are visualized. ?? Gallbladder: The gallbladder is normal in size. There are no stones or sludge within the gallbladder. There is no gallbladder wall thickening. Bile Duct: There is no intrahepatic bile duct dilatation. The common duct measures prox, mid, and distal measurements as appropriate in the proximal, mid and distal segments respectively. ?? Right Kidney: There is no hydronephrosis in the visualized portions of the right kidney. Pancreas: The visualized portions of the head and body of the pancreas are normal. Inferior vena cava: The proximal IVC is normal. Procedure Note Emily Russo MD - 10/03/2018 EXAMINATION: LIMITED ABDOMINAL SONOGRAM HISTORY: Epigastric pain, right upper quadrant pain, history of lupus COMPARISON: None FINDINGS: Liver: The liver is normal in size. The echotexture is normal. The echogenicity is normal. There is no surface nodularity. No focal solid lesions are visualized. Gallbladder: The gallbladder is normal in size. There are no stones or sludge within the gallbladder. There is no gallbladder wall thickening. Bile Duct: There is no intrahepatic bile duct dilatation. The common duct measures prox, mid, and distal measurements as appropriate in the proximal, mid and distal segments respectively. Right Kidney: There is no hydronephrosis in the visualized portions of the right kidney. Pancreas: The visualized portions of the head and body of the pancreas are normal. Inferior vena cava: The proximal IVC is normal. IMPRESSION: Normal right upper quadrant sonogram. Dictated by: Dima Xavier IV, M.D. The radiology attending physician has personally reviewed this study, and had reviewed and/or edited this written report and agrees with it. Electronically signed by: Emily Russo M.D. Remedios Moses NP IMG US PROCEDURES Fi nal Result * (ABNORMAL) Urinalysis, microscopic only (10/03/2018 3:00 PM CDT) WBC, ur 0-5 0 - 5 /HPF [facility] RBC, ur 3-5(A) 0 - 2 /HPF [facility] Epithelial cells, squamous, ur 1-5 0 - 5 /HPF [facility] Mucous, ur Present(A) [facility] Calcium oxalate crystals, ur 2+(A) [facility] Urine 10/03/2018 3:00 PM CDT 10/03/2018 3:58 PM CDT Remedios Moses NP LAB URINE ORDERABLES Final Result [facility] [place] [address] * (ABNORMAL) Urinalysis reflex to microscopic (10/03/2018 3:00 PM CDT) Color, ur Yellow Yellow [facility] Clarity, ur Cloudy(A) Clear [facility] Specific gravity, ur 1.027(H) 1.010 - 1.025 [facility] pH, urine 6 [facility] Protein, ur ql 1+(A) Negative [facility] Glucose, ur ql Negative Negative [facility] Ketones, ur Negative Negative [facility] Bilirubin, ur Negative Negative [facility] Blood, ur Negative Negative [facility] Urobilinogen, ur <2.0 <2.0 mg/dL [facility] Nitrite, ur Negative Negative [facility] Leukocyte esterase, ur Negative Negative [facility] Urine 10/03/2018 3:00 PM CDT 10/03/2018 3:58 PM CDT Narrative [facility] - 10/03/2018 4:08 PM CDT THE B[facility] COLLECTION LOCATION IS [facility] ED3-10 Urine pH is affected by diet, medications, systemic acid-base disturbances, and renal tubular function. ??pH may affect urinary stone formation. ??For example, urine pH below 6.0 may help reduce the tendency for calcium phosphate stones and pH greater than 6.0 may reduce the tendency for uric acid stone formation. Source: [facility]. Last revised 03-08-2017 Remedios Moses NP LAB URINE ORDERABLES Final Result [facility] [place] [address] * (ABNORMAL) Differential, auto (10/03/2018 2:09 PM CDT) Neutrophil abs 4.8 1.7 - 6.5 K/cumm [facility] Imm gran abs 0.0 0.0 - 0.1 K/cumm [facility] Lymphocyte abs 0.5(L) 0.8 - 3.3 K/cumm [facility] Monocyte abs 0.3 0.2 - 0.8 K/cumm [facility] Eosinophil abs 0.0 0.0 - 0.5 K/cumm [facility] Basophil abs 0.0 0.0 - 0.1 K/cumm [facility] Neutrophil pct 84.8 % [facility] Comment: Interpretive Data Percent cell count reference ranges are not reported, since discordance with absolute values may lead to misinterpretation of CBC data. Current Interpretive Data was last revised on 2017. Imm gran pct 0.5 % [facility] Comment: Interpretive Data Percent cell count reference ranges are not reported, since discordance with absolute values may lead to misinterpretation of CBC data. Current Interpretive Data was last revised on 2017. Lymphocyte pct 9.5 % [facility] Comment: Interpretive Data Percent cell count reference ranges are not reported, since discordance with absolute values may lead to misinterpretation of CBC data. Current Interpretive Data was last revised on 2017. Monocyte pct 4.8 % [facility] Comment: Interpretive Data Percent cell count reference ranges are not reported, since discordance with absolute values may lead to misinterpretation of CBC data. Current Interpretive Data was last revised on 2017. Eosinophil pct 0.2 % [facility] Comment: [...] last revised on 2017. Blood specimen (specimen) 10/03/2018 2:09 PM CDT 10/03/2018 2:45 PM CDT us Remedios Moses NP LAB BLOOD ORDERABLES Final Result [facility] [place] [address] * Lipase (10/03/2018 2:09 PM CDT) Lipase 37 10 - 99 Units/L [facility] Blood specimen (specimen) 10/03/2018 2:09 PM CDT 10/03/2018 2:45 PM CDT Narrative [facility] - 10/03/2018 3:14 PM CDT THE BJ COLLECTION LOCATION IS [facility] ED3-10 Remedios Moses CUSTOMER ENGINEER LAB BLOOD ORDERABLES Final Result [facility] [place] [address] * Comprehensive metabolic panel (10/03/2018 2:09 PM CDT) Sodium 142 135 - 145 mmol/L [facility] Potassium, pl 3.9 3.3 - 4.9 mmol/L [facility] Chloride 107 97 - 110 mmol/L [facility] CO2 24 22 - 32 mmol/L [facility] Anion gap 11 2 - 15 mmol/L [facility] BUN 19 8 - 25 mg/dL [facility] Creatinine 0.63 0.60 - 1.10 mg/dL [facility] Glucose 88 70 - 199 mg/dL [facility] [...] 2017. Calcium 9.4 8.5 - 10.3 mg/dL [facility] Bilirubin, total 0.3 0.1 - 1.2 mg/dL [facility] Protein, pl 7.4 6.5 - 8.5 g/dL [facility] Albumin 3.8 3.5 - 5.0 g/dL [facility] Alk phos 42 40 - 130 Units/L [facility] ALT 27 7 - 45 Units/L [facility] AST 27 10 - 45 Units/L [facility] Blood specimen (specimen) 10/03/2018 2:09 PM CDT 10/03/2018 2:45 PM CDT Narrative [facility] - 10/03/2018 3:14 PM CDT THE B[facility] COLLECTION LOCATION IS [facility] ED3-10 Remedios Moses CUSTOMER ENGINEER LAB BLOOD ORDERABLES Final Result [facility] [place] [address] * (ABNORMAL) CBC with auto differential (10/03/2018 2:09 PM CDT) WBC 5.7 3.8 - 9.9 K/cumm [facility] Hgb 10.9(L) 11.9 - 15.5 g/dL [facility] Hct 34.2(L) 35.6 - 45.5 % [facility] Plt 243 150 - 400 K/cumm [facility] MPV 10.4 9.1 - 12.3 fL [facility] RBC 4.12 3.90 - 5.20 M/cumm [facility] MCV 83.0 81.3 - 96.4 fL [facility] MCH 26.5(L) 27.1 - 33.3 pg [facility] MCHC 31.9(L) 32.3 - 35.7 g/dL [facility] RDW CV 17.0(H) 11.1 - 14.9 % [facility] RDW SD 51.0(H) 35.7 - 48.1 fL [facility] NRBC abs 0.00 0.00 - 0.01 K/cumm [facility] Blood specimen (specimen) 10/03/2018 2:09 PM CDT 10/03/2018 2:45 PM CDT Narrative [facility] - 10/03/2018 2:56 PM CDT THE [facility] COLLECTION LOCATION IS [facility] ED3-10 Remedios Moses NP LAB BLOOD ORDERABLES Final Result [facility] [place] [address] documented in this encounter Visit Diagnoses Diagnosis Gastroesophageal reflux disease without esophagitis- Primary Esophageal reflux Myalgia Unspecified myalgia and myositis documented in this encounter Administered Medications Inactive Administered Medications - up to 3 most recent administrations Medication Order MAR Action Action Date Dose Rate Site al & mag hydroxide simethicone-lidocaine oral suspension mixture 40 mL, oral, Once, On Rachel 10/03/18 at 1357, For 1 dose Given 10/03/2018 2:09 PM CDT 40 mL sodium chloride 0.9% bolus 1,000 mL 1,000 mL, intravenous, at 1,000 mL/hr, Administer over 1 Hours, Once, On Rachel 10/03/18 at 1500, For 1 dose New Bag 10/03/2018 3:21 PM CDT 1,000 mL 1000 mL/hr documented in this encounter Historical Medications * This list may reflect changes made after this encounter. omeprazole (PriLOSEC) 20 mg capsule Take 20 mg by mouth daily 05/24/2019 ALPRAZolam (XANAX) 0.25 mg tablet Take 0.25 mg by mouth 3 (three) times a day as needed 07/15/2020 predniSONE (DELTASONE) 5 mg tablet Take 5-15 mg by mouth daily 01/19/2019 added in this encounter Active and Recently Administered Medications Times are shown in CDT. Scheduled Medication Order 10/01/2018 10/02/2018 10/03/2018 al & mag hydroxide simethicone-lidocaine oral suspension mixture (COMPLETED) 40 mL, oral, Once, On Rachel 10/03/18 at 1357, For 1 dose 1409 (Given - Provid er: Katie Griffiths RN) sodium chloride 0.9% bolus 1,000 mL (COMPLETED) 1,000 mL, intravenous, at 1,000 mL/hr, Administer over 1 Hours, Once, On Rachel 10/03/18 at 1500, For 1 dose 1521 (New Bag - Prov ider: Katie Griffiths, RN)[id number] (Stopped - Provider: Katie Griffiths RN) documented in this encounter Care Teams Churn Operator Relationship Specialty [place] [address] [facility] [address] [address] PCP - General 10/03/18 11/15/18 documented as of this encounter
--- OUTSIDE RECORDS SUMMARY | 2024-02-24 20:17 | XMS_ITS | Encounter Summary ---
Author Organization [facility] Facility Care Team Providers Care Pediatric Speech Therapist Name Role Phone Huseyin Dangelo MD Primary Care Provider [phone] Huseyin Dangelo MD Unavailable [phone] Encounter Details Date Type Department Care Team (Latest Contact Info) Description 12/06/2018 Travel Social History Tobacco Use Types Packs/Day [...] on filedocumented in this encounter Care Teams Pediatric Speech Therapist Relationship Specialty [place] [address] [address] [place] [id number] PCP - General 11/16/18 06/24/19 [place] [address] [address] [place] [id number] 11/16/18 documented as of this encounter
--- OUTSIDE RECORDS SUMMARY | 2024-02-24 20:17 | XMS_ITS | Encounter Summary ---
Author Organization [facility] Address [address] [place] [address] Care Team Providers Care Merchandise Collector Name Role Phone Huseyin Dangelo MD Primary Care Provider [phone] Huseyin Dangelo MD Unavailable [phone] Encounter Details Date Type Department Care Team (Late st Contact Info) Description 12/06/2018 Telephone [facility] Hand Surgery [address] [place] [address] Chino Zaldivar MD [address] [place] [address] [address] Social History Tobacco Use Types [...] Telephone Encounter - Kyra Zuñiga MA - 12/06/2018 11:34 AM CDT Rachna is scheduling. * Telephone Encounter - Cassandra Francisco - 12/06/2018 10:45 AM CDT Patient called asking if her surgery has been scheduled, patient was seen today documented in this encounter Plan of Treatment Not on file documented as of this encounter Visit Diagnoses Not on filedocumented in this encounter Care Teams Merchandise Collector Relationship Specialty Start [place] [address] [address] PCP - General 11/16/18 06/24/19 [place] [address] [address] [facility] [place] [address] 11/16/18 documented as of this encounter
--- OUTSIDE RECORDS SUMMARY | 2024-02-24 20:17 | XMS_ITS | Encounter Summary ---
Author Organization [facility] Address [address] [facility] [address] [place] [address] Care Team Providers Care Project Controller Name Role Phone No, Physician Primary Care Provider [phone] Huseyin Dangelo MD Primary Care Provider [phone] Reason for Visit * Reason Onset Date Comments Dr. Riley - Appointment Request 09/04/2018 Encounter Details Date Type Department Care Team (Late st Contact Info) Description 09/04/2018 Telephone [facility] [address] [facility] [address] [place] [address] Madiha Riley MD [address] [facility] [address] [place], [place] [id number] Dr. Riley - Appointment Request Social History Tobacco Use Types Packs/Day Years Used Date Smoking Tobacco: Never Assessed Comments Yes Sex and Gender Information Value Date Recorded Sex Assigned at Not on file Legal Sex Female 10:58 PM CDT Gender Identity Not on file Sexual Orientation Not on file documented as of this encounter Miscellaneous Notes * Telephone Encounter - Мария Arguello MA - 09/05/2018 11:17 AM CDT Spoke with pt, informed of new pt protocol, per pt she would be self pay and will speak with PCP regarding referral, per pt she will contact us back if necessary. * Telephone Encounter - Sandy Maloney - 09/04/2018 3:22 PM CDT Appointment Request: Visit Type: Establish Care; New Patient for Rheumatology Reason for visit: Establish Care with Rheumatology Patient???s appointment request: Did not convey Caller???s Callback#: [phone] Additional Comments: patient seeking to establish care with Rheumatology. Unable to warm transfer no answer. Sending high priority. Did you relay expectation for processing (allow up to 24 hours for call back)? Yes documented in this encounter Plan of Treatment Not on file documented as of this encounter Visit Diagnoses Not on filedocumented in this encounter Care Teams Project Controller Relationship Specialty Start Date End Date No, Physician PCP - General 08/25/17 10/02/18 [place] [id number] [address] PCP - General 10/03/18 11/15/18 documented as of this encounter
--- OUTSIDE RECORDS SUMMARY | 2024-02-24 20:17 | XMS_ITS | Encounter Summary ---
Author Organization [facility] Facility Care Team Providers Care Superintendent Local Name Role Phone Huseyin Dangelo MD Primary Care Provider [phone] Huseyin Dangelo MD Unavailable [phone] Encounter Details Date Type Department Care Team (Latest Contact Info) Description 12/13/2018 Travel Social History Tobacco Use Types Packs/Day [...] filedocumented in this encounter Care Teams Superintendent Local Relationship Specialty Start [place] [address] [address] [place] [address] PCP - General 11/16/18 06/24/19 [place] [address] [address] [place] [address] 11/16/18 documented as of this encounter
--- OUTSIDE RECORDS SUMMARY | 2024-02-24 20:17 | XMS_ITS | Encounter Summary ---
Author Organization [facility] Address [address] [facility] [address] [place] [address] Care Team Providers Care Fiberglasser Name Role Phone Huseyin Dangelo MD Primary Care Provider [phone] Huseyin Dangelo MD Unavailable [phone] Encounter Details Date Type Department Care Team (Late st Contact Info) Description 12/16/2018 Telephone [facility] Hand Surgery [address] [facility] [address] [place] [address] Chino Zaldivar MD [address] [place] [address] Social History Tobacco Use Types Packs/Day [...] Miscellaneous Notes * Telephone Encounter - Cassandra Francisco - 12/16/2018 10:17 AM CDT error documented in this encounter Plan of Treatment Not on file documented as of this encounter Visit Diagnoses Not on filedocumented in this encounter Care Teams Fiberglasser Relationship Specialty Start [place] [address] [address] [facility] [address] [place] [address] PCP - General 11/16/18 06/24/19 [place] [address] [address] [facility] [address] [place] [address] 11/16/18 documented as of this encounter
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
--- OUTSIDE RECORDS SUMMARY | 2024-02-24 20:17 | XMS_ITS | Encounter Summary ---
Author Organization [facility] Address [address] [address] [place] [address] Care Team Providers Care Vocational Rehabilitation Teacher Name Role Phone Huseyin Dangelo MD Primary Care Provider [phone] Huseyin Dangelo MD Unavailable [phone] Encounter Details Date Type Department Care Team (Late st Contact Info) Description 12/20/2018 Telephone [facility] Hand Surgery [address] [facility] [address] [place] [address] Rachna Vogel MA Social History [...] Telephone Encounter - Rachna Vogel MA - 12/20/2018 8:46 AM CDT Patient called concerned about swelling in her fingers. I advised her this is normal following surgery, keep hand elevated and use ice if she can tolerate it. States she hasn't gotten relief from Lyrica, I advised her she needs to give it more time. documented in this encounter Plan of Treatment Not on file documented as of this encounter Visit Diagnoses Not on filedocumented in this encounter Care Teams Vocational Rehabilitation Teacher Relationship Specialty Start [place] [address] [address] [place] [address] PCP - General 11/16/18 06/24/19 [place] [address] [address] [place] [address] 11/16/18 documented as of this encounter
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
--- OUTSIDE RECORDS SUMMARY | 2024-02-24 20:34 | XMS_ITS | Encounter Summary ---
Author Organization [facility] Address [address] [place] [address] Care Team Providers Care Community Health Education Coordinator Name Role Phone Brian Mon MD Primary Care Provider Encounter Details Date Type Department Care Team (Late st Contact Info) Description 09/10/2023 Orders Only [facility] OBGYN [address] [facility] [address] [address] [facility] [address] [place] [address] [place] [address] [place] [address] Bacterial vaginosis (Primary Dx) Social History Tobacco Use Types Packs/Day Years Used Date Smoking Tobacco: Former Cigarettes Q uit: 12/11/2017 Smokeless Tobacco: Never Alcohol Use Standard Drinks/Week Comments Not Currently 0 (1 standard drink = 0.6 oz pur e alcohol) socially Sex and Gender Information Value Date Recorded Sex Assigned at Not on file Gender Identity Not on file Sexual Orientation Not on file documented as of this encounter Plan of Treatment Not on file documented as of this encounter Visit Diagnoses Diagnosis Bacterial vaginosis- Primary Vaginitis and vulvovaginitis, unspecified documented in this encounter Care Teams Community Health Education Coordinator Relationship Specialty Start Date End Date Brian Mon MD [address] [place] [address] PCP - General Internal Medicine 07/15/19 documented as of this encounter
--- OUTSIDE RECORDS SUMMARY | 2024-02-24 20:34 | XMS_ITS | Encounter Summary ---
Author Organization [facility] Address [address] [place]: [place] [address] Care Team Providers Care Biomass Technician Name Role Phone Brian Mon MD Primary Care Provider Encounter Details Date Type Department Care Team (Late st Contact Info) Description 09/14/2023 Orders Only Initial Department [address] [place]: [place] [address] Provider, Historical Social History Tobacco Use Types Packs/Day Years [...] Procedure Name Priority Date/Time Associated Diagnosis Comments PROLACTIN Routine 09/14/2023 11:57 AM CDT documented in this encounter Results * PROLACTIN (09/14/2023 11:57 AM CDT) PROLACTIN 8.2 ng/mL [facility] Comment: ?Reference Range Females ?Non- ?3.0-30.0 ? 10.0-209.0 ?Postmenopausal ?2.0-20.0 ? FASTING:NO FASTING: NO Test Performed at: [facility] [address] [place], [place] ??[address] Amanda Manzano MD 09/14/2023 11:5 7 AM CDT 09/14/2023 12:00 PM CDT Lisette De Santiago REIMBURSEMENT REP CHEMISTRY ORDERABL ES [facility] [phone] [facility] [address] [place] [address] documented in this encounter Visit Diagnoses Not on filedocumented in this encounter Care Teams Biomass Technician Relationship Specialty Start Date End Date Brian Mon MD [address] [place] [address] PCP - General Internal Medicine 07/15/19 documented as of this encounter
--- OUTSIDE RECORDS SUMMARY | 2024-02-24 20:34 | XMS_ITS | Encounter Summary ---
Author Organization [facility] Address [address] [place] [address] Care Team Providers Care Library Clerk Name Role Phone Brian Mon MD Primary Care Provider Encounter Details Date Type Department Care Team (Late st Contact Info) Description 12/04/2023 External Device Data [facility] ABSTRACTION Provider, Abstract NO ADDRESS ON FILE Social History Tobacco Use Types Packs/Day Years [...] on filedocumented in this encounter Care Teams Library Clerk Relationship Specialty Start Date End Date Brian Mon MD [address] [place] [address] PCP - General Internal Medicine 07/15/19 documented as of this encounter
--- OUTSIDE RECORDS SUMMARY | 2024-02-24 20:34 | XMS_ITS | Encounter Summary ---
Author Organization [facility] Address [address] [place] [address] Care Team Providers Care Rubber Attacher Name Role Phone Brian Mon MD Primary Care Provider Reason for Visit * Reason Comments Yeast Infection Sexually Transmitted Disease Vaginal/Vulvar Lesions Encounter Details Date Type Department Care Team (Late st Contact Info) Description 11/13/2023 12:30 PM CDT Office Visit [facility] OBGYN [address] [facility] [address] [place] [address] [address] [place] [address] [place] [address] [facility] [address] [address] Vulvar ulcer (Primary Dx) Social History Tobacco Use Types [...] Sign Reading Time Taken Comments Blood Pressure 118/82 11/13/2023 12:48 PM CDT Pulse - - Temperature - - Respiratory Rate - - Oxygen Saturation - - Inhaled Oxygen Concentration - - Weight 78.8 kg (173 lb 12.8 oz) 12:48 PM CDT Height - - Body Mass Index 31.79 04/26/2023 1:29 PM DISASTER DIRECTOR documented in this encounter Progress Notes * Sheldon Delgado MD - 11/13/2023 12:56 PM CDT CDU systems Exam office visit [facility] FLEXO FOLDER GLUER OPERATOR [facility] on [facility] Carito Madison 33 y.o. 1990 HISTORY Chief Complaint Patient presents with Yeast Infection Sexually Transmitted Disease Vaginal/Vulvar Lesions HPI: 33 y.o., , No LMP recorded., This patient has recently taken 3 fluconazole and treated herself with [id number] terconazole for what she thought was a yeast infection. She is on daily suppressive dose of Valtrex for genital herpes. She complains of persistent vaginal ulcerations. She denies any ulcerations in her oropharynx. She has lupus. Past Medical History: Diagnosis Date Gume's disease Connective tissue disease Fibromyalgia Gastroesophageal reflux in in second trimester 10/14/2020 Herpes Hx of hyperprolactinemia Lupus Past Surgical History: Procedure Laterality Date HX APPENDECTOMY HX BREAST REDUCTION Bilateral 10/28/2023 HX SECTION HX MEDIAN NERVE REPAIR Family History Problem Relation Name Age of Onset Breast Cancer Paternal Grandmother unsure age of onset Uterine Cancer Neg Hx Ovarian Cancer Neg Hx Current Outpatient Medications: hydrocortisone acetate (ANUSOL-HC) 25 mg Suppository, 1 Suppository (25 mg) by See Admin Instructions route daily for 7 days., Disp: 7 Suppository, Rfl: 0 sertraline (Zoloft) 25 mg tablet, Take 1 Tablet (25 mg) by mouth daily., Disp: 90 Tablet, Rfl: 0 hydrOXYzine HCL (ATARAX) 10 mg tablet, Take 1 Tablet (10 mg) by mouth 3 times daily as needed for Itching., Disp: 30 Tablet, Rfl: 1 valACYclovir (Valtrex) 1 gram tablet, Take 1 Tablet by mouth 2 times daily., Disp: 14 Tablet, Rfl: 1 terconazole (TERAZOL) 80 mg Suppository, Insert 1 Suppository (80 mg) vaginally daily at bedtime., Disp: 3 Suppository, Rfl: 0 clotrimazole (LOTRIMIN) 1 % Cream, Apply to affected area 2 times daily., Disp: 45 Gram, Rfl: 0 busPIRone (BUSPAR) 10 mg tablet, Take 1 Tablet (10 mg) by mouth 2 times daily., Disp: 60 Tablet, Rfl: 11 clomiPHENE citrate (CLOMID) 50 mg tablet, Take 3 tablets daily on days 5 through 9., Disp: 15 Tablet, Rfl: 5 predniSONE (DELTASONE) 5 mg tablet, Take 5 mg by mouth daily., Disp: , Rfl: omeprazole (PriLOSEC) 20 mg Capsule, Delayed Release(E.C.), Take 20 mg by mouth daily., Disp: , Rfl: hydroxychloroquine (PLAQUENIL) 200 mg tablet, Take 200 mg by mouth daily., Disp: , Rfl: Allergies Allergen Reactions Penicillins Hives and Rash Methylprednisolone Syncope Metoclopramide Hcl Other (See Comments) nausea Sulfamethoxazole-Trimethoprim Other (See Comments) Cannot take bactrim because of lupus Escitalopram Rash Caused seizures Caused seizures Nitrofurantoin Monohyd/M-Cryst Itching OB History Para Term AB Living 3 0 0 0 2 0 SAB IAB Ectopic Multiple Live Births 2 0 0 0 0 # Outcome Date GA Lbr Rojas/2nd Weight Sex Type Anes PTL Lv 3 2 SAB SAB 1 SAB SAB Social History Socioeconomic History Marital status: Tobacco Use Smoking status: Former Current packs/day: 0.00 Types: Cigarettes Quit date: 12/11/2017 Years since quittin.9 Smokeless tobacco: Never Vaping Use Vaping status: Never Used Substance and Sexual Activity Alcohol use: Not Currently Comment: socially Drug use: Not Currently Types: Marijuana, Cocaine Comment: one time use 12/2017 Sexual activity: Yes Partners: Male control/protection: None Social Determinants of Health Financial Resource Strain: Low Risk (01/01/2021) Received from [facility], [facility] Overall Financial Resource Strain (CARDIA) Difficulty of Paying Living Expenses: Not hard at all Food Insecurity: No Food Insecurity (01/01/2021) Received from [facility], [facility] Hunger Vital Sign Worried About Running Out of Food in the Last Year: Never true Ran Out of Food in the Last Year: Never true Transportation Needs: No Transportation Needs (01/01/2021) Received from [facility], [facility] PRAPARE - Transportation Lack of Transportation (Medical): No Lack of Transportation (Non-Medical): No Social Connections: Unknown (01/01/2021) Received from [facility], [facility] Social Connection and Isolation Panel [NHANES] Frequency of Communication with Friends and Family: More than three times a week Marital Status: Housing Stability: Unknown (01/01/2021) Received from [facility], [facility] Housing Stability Vital Sign Unable to Pay for Housing in the Last Year: No Unstable Housing in the Last Year: No ROS: Constitutional: no high fevers, chills, extreme fatigue Psychosocial: no depression, delusions, Cardiovascular: no severe chest pain Respiratory: no SOB, productive cough HEENT: no edema or trauma Breast: no mastitis or masses Gastrointestinal: no watery diarrhea, stool changes, incontinence of flatus Endocrine: dry skin, hair growth, hair loss, increase thirst, Genitourinary: urinary incontinence, urinary urgency, dysuria, vasomotor symptoms, PHYSICAL EXAMINATION Vitals: 11/13/23 1248 BP: 118/82 Weight: 78.8 kg (173 lb 12.8 oz) Body mass index is 31.79 kg/m??. Head: normocephalic and atraumatic Neck: normal without enlarged thyroid, no thyroid nodules are noted. Skin: warm and dry. Cardiovascular: RRR, I do not appreciate a gallop. Lungs: Clear without crackles and wheezes Abdomen: soft, not an acute abdomen, not distended, no guarding Lower Extremities: She has no evidence of a deep venous thrombosis. Pelvic: She has some small ulcerations around the vulva and vagina not consistent with HSV or yeast. Patient is currently treated for yeast infection therefore I did not do a culture. There is some terconazole cream inside the vagina. Encounter Diagnoses Code Name Primary? 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 I am going to treat her with hydrocortisone vaginal suppositories for a week and have her follow-up with her data consultant regarding the Behcet's syndrome. Patient declined vulvar and vaginal biopsies today. A total of 20 minutes were spent in the examination room managing this patient's care today, of which greater than 50% was spent in face to face counseling and/or coordination of care with the patient, office staff and office services. The nature of this counseling and coordination of care is as noted above. This care may have included diagnosing, testing, counseling, reviewing test ordered, reviewing CT or ultrasound images, explaining procedures and managing the patients expectations. This report was transcribed using [employer] speaking voice recognition system. Despite editing there may be minor grammatical and/or minor typographical errors in this plant ecologist due to thelimitations inherent with voice activated computer dictation. This should not adversely affect the overall integrity of the document. Please call for any questions or clarifications as needed. I did not do a culture today secondary to the terconazole cream being inside the vagina currently. She has also been referred to the vaginitis clinic at [facility]. documented in this encounter Plan of Treatment Not on file documented as of this encounter Visit Diagnoses Diagnosis Vulvar ulcer- Primary Ulceration of vulva, unspecified documented in this encounter Care Teams Rubber Attacher Relationship Specialty Start Date End Date Brian Mon MD [address] [place] [id number] PCP - General Internal Medicine 07/15/19 documented as of this encounter
--- OUTSIDE RECORDS SUMMARY | 2024-02-24 20:34 | XMS_ITS | Encounter Summary ---
Author Organization [facility] Address [address] [place] [address] Care Team Providers Care Slicing Machine Tender Name Role Phone Brian Mon MD Primary Care Provider [phone] Reason for Visit * Reason Comments Breast Problem Encounter Details Date Type Department Care Team (Late st Contact Info) Description 09/14/2023 11:30 AM CDT Office Visit [facility] OBGYN [address] [facility] [address] [address] [facility] [address] [place] [address] [place] [address] [place] [address] Breast discharge (Primary Dx) Social History Tobacco Use Types [...] Sign Reading Time Taken Comments Blood Pressure 128/84 09/14/2023 11:29 AM CDT Pulse - - Temperature - - Respiratory Rate - - Oxygen Saturation - - Inhaled Oxygen Concentration - - Weight 79.5 kg (175 lb 3.2 oz) 09/14/2023 11:29 AM CDT Height - - Body Mass Index 32.04 04/26/2023 1:29 PM OCCUPATIONAL MEDICINE OFFICER documented in this encounter Progress Notes * Jonnathan Lisette Keena, MANAGER [employer] - 09/14/2023 12:46 PM CDT CC: breast discharge HPI: Carito Madison is a 33 y.o. , presenting to the office with complaints of breast discharge. She has had these symptoms since she weaned her daughter. She nursed her for 3 months and then stopped. Her daughter is 2.5 so she has been having the discharge for about 2 years. It only happens when she is squeezing her nipples. Happens bilaterally. 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 She currently has a breast reduction scheduled in September but her surgeon wanted her to get checked out due to this possibly causing complications during her surgery. OB History Para Term AB Living 3 0 0 0 2 0 SAB IAB Ectopic Multiple Live Births 2 0 0 0 0 # Outcome Date GA Lbr Rojas/2nd Weight Sex Type Anes PTL Lv 3 2 SAB SAB 1 SAB SAB Past Medical History: Diagnosis Date Gume's disease Connective tissue disease Fibromyalgia Gastroesophageal reflux in in second trimester 10/14/2020 Herpes Hx of hyperprolactinemia Lupus Past Surgical History: Procedure Laterality Date HX APPENDECTOMY HX SECTION HX MEDIAN NERVE REPAIR Current Outpatient Medications: metroNIDAZOLE (METROGEL) 0.75 % (37.5mg/5 gram) vaginal gel, Insert 1 Applicator vaginally daily atbedtime for 5 days., Disp: 25 Gram, Rfl: 0 sertraline (Zoloft) 25 mg tablet, [...] times daily., Disp: 45 Gram, Rfl: 0 clomiPHENE citrate (CLOMID) 50 mg tablet, Take [...] mg by mouth daily., Disp: , Rfl: busPIRone (BUSPAR) 10 mg tablet, Take 1 Tablet (10 mg) by mouth 2 times daily., Disp: 60 Tablet, Rfl: 11 Allergies Allergen Reactions Penicillins Hives and Rash Methylprednisolone Syncope Metoclopramide Hcl Other (See Comments) nausea Sulfamethoxazole-Trimethoprim Other (See Comments) Cannot take bactrim because of lupus Escitalopram Rash Caused seizures Caused seizures Nitrofurantoin Monohyd/M-Cryst Itching Physical Exam: Vitals: 09/14/23 1129 BP: 128/84 Weight: 79.5 kg (175 lb 3.2 oz) Body mass index is 32.04 kg/m??. GEN: NAD, well-developed PULM: Regular breathing rate and effort ABD: nondistended NEURO: A&Ox3 BREASTS: breasts appear normal, no suspicious masses, no skin or nipple changes or axillary nodes. There is a small amount of milky white discharge from both nipples bilaterally when squeezed Labs: No results found for this visit on 09/14/23. ASSESSMENT/PLAN: Encounter Diagnoses Code Name Primary? N64.52 Breast discharge Yes - breast discharge on exam - will check prolactin level for further evaluation and call with results - discussed possibility of pituitary microadenoma if prolactin level is elevated, may need Bromocriptine if results are elevated - will also consider pituitary MRI if needed, will await results - likely will need to push surgery if breast discharge is still occurring, discussed this RTC for Well Woman Exam or prn Orders Placed This Encounter PROLACTIN documented in this encounter Plan of Treatment Scheduled Orders Name Type Priority Associated Diagnoses Orde r Schedule PROLACTIN Lab Routine Breast discharge Expected: 09/14/2023, Expires: 09/13/2024 documented as of this encounter Visit Diagnoses Diagnosis Breast discharge- Primary Other sign and symptom in breast documented in this encounter Care Teams Slicing Machine Tender Relationship Specialty Start Date End Date Brian Mon MD [address] [place] [address] PCP - General Internal Medicine 07/15/19 documented as of this encounter
--- OUTSIDE RECORDS SUMMARY | 2024-02-24 20:34 | XMS_ITS | Encounter Summary ---
Author Organization [facility] Address [address] [place] [address] Care Team Providers Care Diamond Cleaver Name Role Phone Brian Mon MD Primary Care Provider Encounter Details Date Type Department Care Team (Late st Contact Info) Description 08/29/[address] [facility] OBGYN [address] [facility] [address] [address] [facility] [address] [address] [place] [address] [place] [address] Social History Tobacco Use Types Packs/Day Years [...] on filedocumented in this encounter Care Teams Diamond Cleaver Relationship Specialty Start Date End Date Brian Mon MD [address] [place] [phone] PCP - General Internal Medicine 07/15/19 documented as of this encounter
--- OUTSIDE RECORDS SUMMARY | 2024-02-24 20:34 | XMS_ITS | Encounter Summary ---
Author Organization [facility] Address [address] [place] [address] Care Team Providers Care Customer Leader Name Role Phone Brian Mon MD Primary Care Provider Reason for Visit * Reason Comments Med Change Request Encounter Details Date Type Department Care Team (Late st Contact Info) Description 11/13/2023 [facility] OBGYN [address] [facility] [address] [address] [facility] [address] [place] [address] [place] [address] [facility] [address] [place] [address] Vulvar ulcer Social History Tobacco Use Types Packs/Day Years [...] of this encounter Visit Diagnoses Diagnosis Vulvar ulcer Ulceration of vulva, unspecified documented in this encounter Care Teams Customer Leader Relationship Specialty Start Date End Date Brian Mon MD [address] [place] [address] PCP - General Internal Medicine 07/15/19 documented as of this encounter
--- OUTSIDE RECORDS SUMMARY | 2024-02-24 20:34 | XMS_ITS | Encounter Summary ---
Author Organization [facility] Address [address] [place] [address] Care Team Providers Care Occupational Work Experience Teacher Name Role Phone Brian Mon MD Primary Care Provider [phone] Reason for Visit * Reason Onset Date Comments Med Change Request 08/29/2023 Encounter Details Date Type Department Care Team (Late st Contact Info) Description 08/29/2023 Telephone [facility] OBGYN [address] [facility] [address] [address] [facility] [address] [place] [address] [place] [address] [place] [address] Med Change Request Social History Tobacco Use Types Packs/Day [...] encounter Miscellaneous Notes * Telephone Encounter - Julia Miller RN - 08/29/2023 9:14 AM CDT Spoke with pt, she is wanting to switch back to her Zoloft. She sent a refill request for it yesterday .04.21 that was denied because she has Wellbutrin on her med list. Called patient to get clarification and she states that she talked about switching back to her Zoloft at her last OV in June, I do not see anything of that in the office notes. Please Advise Chantelle RN, BSN documented in this encounter Plan of Treatment Not on file documented as of this encounter Visit Diagnoses Not on filedocumented in this encounter Care Teams Occupational Work Experience Teacher Relationship Specialty Start Date End Date Brian Mon MD [address] [place] [phone] PCP - General Internal Medicine 07/15/19 documented as of this encounter
--- OUTSIDE RECORDS SUMMARY | 2024-02-24 20:34 | XMS_ITS | Clinical Summary ---
Author Organization [employer] [facility] Address [address] [place] [address] Care Team Providers Care Electrician Rectifier Maintenance Name Role Phone Brian Mon MD Primary Care Provider Allergies Active Allergy Reactions Criticality Noted Date Comments Escitalopram Rash Low 11/05/2019 Caused seizures Caused seizures Methylprednisolone Syncope Medium 07/11/2018 Metoclopramide Hcl Other (See Comments) 11/12/2020 nausea Nitrofurantoin Monohyd/M-Cryst Itching Low 09/17/2020 Penicillins Hives,Rash High 01/31/2020 Sulfamethoxazole-Trimethopr im Other (See Comments) 09/17/2020 Cannot take bactrim because of lupus Medications Medication Sig Dispensed Refills Start Date End Date Status hydroxychloroquin e (PLAQUENIL) 200 mg tablet Take 200 mg by mouth daily. Active omeprazole (PriLOSEC) 20 mg Capsule, Delayed Release(E.C.) Take 20 mg by mouth daily. Active predniSONE (DELTASONE) 5 mg tablet Take 5 mg by mouth daily. Active clomiPHENE citrate (CLOMID) 50 mg tabletIndications :Anovular Take 3 tablets daily on days 5 through 9. 15 Tablet 5 03/20/2023 Active busPIRone (BUSPAR) 10 mg tabletIndications :Anxiety state Take 1 Tablet (10 mg) by mouth 2 times daily. 60 Tablet 11 04/26/2023 Active terconazole (TERAZOL) 80 mg Suppository Insert 1 Suppository (80 mg) vaginally daily at bedtime. 3 Suppository 04/27/2023 Active clotrimazole (LOTRIMIN) 1 % Cream Apply to affected area 2 times daily. 45 Gram 04/27/2023 Active hydrOXYzine HCL (ATARAX) 10 mg tablet Take 1 Tablet (10 mg) by mouth 3 times daily as needed for Itching. 30 Tablet 1 07/02/2023 Active sertraline (ZOLOFT) 25 mg tablet Take 1 tablet by mouth once daily 90 Tablet 11/23/2023 Active acyclovir (ZOVIRAX) 5 % Cream Apply to affected area 5 times daily. 5 Gram 1 12/18/2023 Active valACYclovir (VALTREX) 500 mg tablet TAKE 1 TABLET (500 MG) BY MOUTH 4 TIMES DAILY. 360 Tablet 1 01/08/2024 Active Active Problems Problem Noted Date Diagnosed Date Gastroesophageal reflux in in second t rimester 10/14/2020 Miscarriage, threatened, early 021 Low serum progesterone 05/31/2020 Herpes simplex vulvovaginitis 05/31/2020 Myalgia, unspecified site 07/11/2018 Musculoskeletal pain 07/11/2018 Weakness 07/11/2018 Lupus 07/11/2018 Hemorrhage in early Encounters Date Type Department Care Team Description 01/08/2024 Refill [facility] OBGYN [address] [facility] [address] [address] [address] [facility] [address] [place] [address] Sheldon Delgado MD 12/18/2023 Orders Only [facility] OBGYN [address] [facility] [address] [address] [facility] [address] [place] [address] Sheldon Delgado MD 12/11/2023 External Device Data STL ABSTRACTION Provider, Abstract 12/04/2023 External Device Data STL ABSTRACTION Provider, Abstract 12/04/2023 External Device Data STL ABSTRACTION Provider, Abstract 12/04/2023 External Device Data STL ABSTRACTION Provider, Abstract from Last 3 Months Family History Medical History Relation Name Comments Breast Cancer Paternal Grandmother unsure age of onset Ovarian Cancer Neg Hx Uterine Cancer Neg Hx Relation Name Status Comments Paternal Grandmother Social History Tobacco Use Types Packs/Day Years Used Date Smoking Tobacco: Former Cigarettes Q uit: 12/11/2017 Smokeless Tobacco: Never Tobacco Cessation:Counseling Given: Not Answered Alcohol Use Standard Drinks/Week Comments Not Currently 0 (1 standard drink = 0.6 oz pur e alcohol) socially Sex and Gender Information Value Date Recorded Sex Assigned at Not on file Gender Identity Not on file Sexual Orientation Not on file Last Filed Vital Signs Vital Sign Reading Time Taken Comments Blood Pressure 118/82 11/13/2023 12:48 PM CDT Pulse 75 03/15/2021 10:26 AM PUBLIC ADDRESS SYSTEM MECHANIC Temperature 36.9 ??C (98.4 ??F) 03/15/2021 1 0:26 AM PUBLIC ADDRESS SYSTEM MECHANIC Respiratory Rate 18 03/15/2021 10:2 6 AM PUBLIC ADDRESS SYSTEM MECHANIC Oxygen Saturation 100% 03/15/2021 10: 26 AM PUBLIC ADDRESS SYSTEM MECHANIC Inhaled Oxygen Concentration - - Weight 78.8 kg (173 lb 12.8 oz) 024 12:48 PM CDT Height 157.5 cm (5' 2 ) 04/26/2023 1:29 PM PUBLIC ADDRESS SYSTEM MECHANIC Body Mass Index 31.79 04/26/2023 1:29 PM PUBLIC ADDRESS SYSTEM MECHANIC Plan of Treatment Health Maintenance Due Date Last Done Comments PNEUMOCOCCAL VACCINE 0-64 YEARS (1 of 2 - PCV) 1998 HEPATITIS B VACCINES (1 of 3 - 19+ 3-dose series) 05/11/2011 COVID-19 Vaccine (3 - Pfizer risk series) 11/09/2020 10/12/2020, 05/20/2020 INFLUENZA VACCINE (#1) 2023 CERVICAL CANCER SCREENING 03/20/20262023, 11/08/2022, 05/31/2020 DTAP/TDAP/TD VACCINES (3 - T d or Tdap) 11/23/2030 11/23/2020, 12/01/2018 HPV VACCINES Aged Out No longer eligi ble based on patient's age to complete this topic Procedures Procedure Name Priority Date/Time Associated Diagnosis Comments CERV/VAG CYTO AGE BASED SCREEN PAP Routine 03/20/2023 1:28 PM PUBLIC ADDRESS SYSTEM MECHANIC Encounter for gynecological examination with abnormal finding from Last 3 Months or Most Recently Relevant to Health Maintenance Results * CERV/VAG CYTO AGE BASED SCREEN PAP (03/20/2023 1:28 PM PUBLIC ADDRESS SYSTEM MECHANIC) COMMENT (PAP): [facility] [place] Comment: This order for age-based cervical cancer and STI screening follows ACOG guidelines(PB 168, 140, OPC615). See individual assays for performing site location. CLINICAL INFORMATION [facility] [place] Comment:None given LAST MENSTRUAL PERIOD [facility] [place] Comment:03/16/2023 PREV PAP: [facility] [place] Comment:NONE GIVEN PREV BX: [facility] [place] Comment:NONE GIVEN SOURCE [facility] [place] Comment:Endocervix ADEQUACY: [facility] [place] Comment: Satisfactory for evaluation. Endocervical/transformation zone component present. PAP INTERP [facility] [place] Comment: Cytology Results: Negative for intraepithelial lesion or malignancy. COMMENT (PAP TEST) [facility] Comment: This Pap test has been evaluated with computer assisted technology. TECHNOLOGY APPLICATIONS TEACHER: Cailin est [facility] Comment: MDG, CT(ASCP) CT screening location: [place] [address] [place] [address] REVIEW TECHNOLOGY APPLICATIONS TEACHER: Tremayne [facility]ms[facility] Comment: MVB, CT(ASCP) CT Screening Location: [place] [address] [place] [address] EXPLANATORY NOTE Que [facility] Valente Comment: EXPLANATORY NOTE: The Pap is a screening test for cervical cancer. It is not a diagnostic test and is subject to false negative and false positive results. It is most reliable when a satisfactory sample, regularly obtained, is submitted with relevant clinical findings and history, and when the Pap result is evaluated along with historic and current clinical information. HPV E6/E7 Not Detected Not Detected [facility] Comment: Methodology: Baggage Agent-Mediated Amplification This assay detects E6/E7 viral messenger RNA (mRNA) from 14 high-risk HPV types (16,18,31,33,35,39,45,51,52,56,58,59,66,68). Cervical sources are required for HPV testing. If a vaginal source from a patient who has had a total hysterectomy with removal of cervix was submitted, please contact the testing laboratory for alternative testing options. For additional information, please refer to http://education.Mobilygen/faq/CPG206m4 (This link if provided for information/ educational purposes only.) Test Performed at: [facility] [address] ??[id number] Amanda Manzano MD SL Genital SWAB OF ENDOCERVIX / Unknown 03/20/2023 1:28 PM PUBLIC ADDRESS SYSTEM MECHANIC 03/21/2023 5:37 AM PUBLIC ADDRESS SYSTEM MECHANIC Sheldon Delgado MD PATHOLOGY/CYTOLOGY O RDERABLES [facility] [phone] [facility] [address] [place] [address] from Last 3 Months or Most Recently Relevant to Health Maintenance Advance Directives For more information, please contact: [phone] * Full Code (Latest Code Status on File) Date Activated Date Inactivated Comments 10/14/2020 4:19 PM 10/14/2020 8:03 PM * Full Code Date Activated Date Inactivated Comments 09/04/2020 7:28 AM 09/04/2020 11:12 AM * Full Code Date Activated Date Inactivated Comments 07/14/2020 9:10 PM 07/15/2020 12:20 AM * Full Code Date Activated Date Inactivated Comments 07/11/2018 9:28 PM 07/12/2018 8:34 PM Care Teams Electrician Rectifier Maintenance Relationship Specialty Start Date End Date Brian Mon MD [address] [place] [address] PCP - General Internal Medicine 07/15/19
--- OUTSIDE RECORDS SUMMARY | 2024-02-24 20:34 | XMS_ITS | Encounter Summary ---
Author Organization [facility] Address [address] [place] [address] Care Team Providers Care Boat Camp Operator Name Role Phone Brian Mon MD Primary Care Provider Reason for Visit * Reason Onset Date Comments Yeast Infection 07/03/2023 Encounter Details Date Type Department Care Team (Late st Contact Info) Description 07/03/2023 Nurse Triage [facility] Clinical Support [address] [place] [address] Cassandra Salvador RN Social History Tobacco Use Types Packs/Day [...] Miscellaneous Notes * Telephone Encounter - Cassandra Salvador RN - 07/03/2023 6:06 PM CDT Reason for Disposition [1] Symptoms of a yeast infection (i.e., itchy, white discharge, not bad smelling) AND [2] feels like prior vaginal yeast infections Protocols used: Vulvar Ymtlgetv-D-YX Called pt regarding complaints of a yeast infection. Per pt is very prone to these. Pt was seen in [facility] ER on 06/29 for vaginal itching. Vaginal panel done and was normal. Pt followed up in providers office yesterday for the same complaint. Vaginal panel, mycoplasma/ureaplasma detection andUA ordered. Results pending. Pt received a phone call from ER provider at [facility] regarding result and sent miconazole cream to pharmacy. Spoke to patient on phone regarding vaginal Patti infection. Prescription for miconazole cream sent to patient's preferred pharmacy. Patient also states that she is following up with her OBGYN. Pt was asking for a different medication to help. This RN could not find a positive result from ER visit. This RN offered to call on-call provider regarding matter, but could not guarantee that the provider would want to send something different, since there is no + yeast result. Pt agreeable to wait till morning and will follow up with the officeregarding treatment. Discussed home care for the time being. Pt verbalized understanding. No additional concerns at this time. documented in this encounter Plan of Treatment Not on file documented as of this encounter Visit Diagnoses Not on filedocumented in this encounter Care Teams Boat Camp Operator Relationship Specialty Start Date End Date Brian Mon MD [address] [place] [address] PCP - General Internal Medicine 07/15/19 documented as of this encounter
--- OUTSIDE RECORDS SUMMARY | 2024-02-24 20:34 | XMS_ITS | Encounter Summary ---
Author Organization [facility] Address [address] [place] [address] Care Team Providers Care Blood Donor Recruiter Supervisor Name Role Phone Brian Mon MD Primary Care Provider [phone] Encounter Details Date Type Department Care Team [...] on filedocumented in this encounter Care Teams Blood Donor Recruiter Supervisor Relationship Specialty Start Date End Date Brian Mon MD [address] [place] [address] PCP - General Internal Medicine 07/15/19 documented as of this encounter
--- OUTSIDE RECORDS SUMMARY | 2024-02-24 20:34 | XMS_ITS | Encounter Summary ---
Author Organization [facility] Address [address] [place] [address] Care Team Providers Care Steel Die Printer Name Role Phone Brian Mon MD Primary Care Provider Reason for Visit * Reason Onset Date Comments Medication Question 11/14/2023 Encounter Details Date Type Department Care Team (Late st Contact Info) Description 11/14/2023 Telephone [facility] OBGYN [address], [place] [address] [place] [address] [facility] [address], [place] [address] Medication Question Social History Tobacco Use Types Packs/Day [...] encounter Miscellaneous Notes * Telephone Encounter - Lazarus Fry RN - 11/14/2023 9:43 AM CDT [facility] called to clarify order for suppository. Since a rectal prescription is prescribedto insert vaginally, the pharmacy did not think insurance would cover the cost. They recommended sending a new prescription into a compound pharmacy. documented in this encounter Plan of Treatment Not on file documented as of this encounter Visit Diagnoses Not on filedocumented in this encounter Care Teams Steel Die Printer Relationship Specialty Start Date End Date Brian Mon MD [address] [place] [phone] PCP - General Internal Medicine 07/15/19 documented as of this encounter
--- OUTSIDE RECORDS SUMMARY | 2024-02-24 20:34 | XMS_ITS | Encounter Summary ---
Author Organization [facility] Address [address] [place] [address] Care Team Providers Care Oil Well Perforator Operator Name Role Phone Brian Mon MD Primary Care Provider Encounter Details Date Type Department Care Team (Late st Contact Info) Description 12/18/2023 Orders Only [facility] OBGYN [address] [facility] [address] [address] [facility] [address] [place] [address] [place] [address] [facility] [address] [place], [place] [id number] Social History Tobacco Use Types Packs/Day Years [...] on filedocumented in this encounter Care Teams Oil Well Perforator Operator Relationship Specialty Start Date End Date Brian Mon MD [address] [place] [address] PCP - General Internal Medicine 07/15/19 documented as of this encounter
--- OUTSIDE RECORDS SUMMARY | 2024-02-24 20:34 | XMS_ITS | Encounter Summary ---
Author Organization [facility] Address [address] [place] [address] Care Team Providers Care Back Maker Name Role Phone Brian Mon MD Primary Care Provider [phone] Reason for Visit * Reason Comments Med Refill Encounter Details Date Type Department Care Team (Late st Contact Info) Description 11/23/2023 Refill [facility] OBGYN [address] [facility] [address] [address] [facility] [address] [place] [address] [place] [address] [place] [address] Social History Tobacco Use Types Packs/Day Years [...] on filedocumented in this encounter Care Teams Back Maker Relationship Specialty Start Date End Date Brian Mon MD [address] [place] [phone] PCP - General Internal Medicine 07/15/19 documented as of this encounter
--- OUTSIDE RECORDS SUMMARY | 2024-02-24 20:34 | XMS_ITS | Encounter Summary ---
Author Organization [facility] Address [address] [place] [address] Care Team Providers Care Spindle Repairer Name Role Phone Brian Mon MD Primary Care Provider Encounter Details Date Type Department Care Team (Late st Contact Info) Description 11/14/2023 Orders Only [facility] OBGYN [address] [facility] [address] [address] [facility] [address] [place] [address] Lazarus Fry RN Vulvar ulcer Social History Tobacco Use Types [...] as of this encounter Progress Notes * Lazarus Fry RN - 11/14/2023 11:05 AM CDT Pharmacy cancelled original order. documented in this encounter Plan of Treatment Not on file documented as of this encounter Visit Diagnoses Diagnosis Vulvar ulcer Ulceration of vulva, unspecified documented in this encounter Care Teams Spindle Repairer Relationship Specialty Start Date End Date Brian Mon MD [address] [place] [phone] PCP - General Internal Medicine 07/15/19 documented as of this encounter
--- OUTSIDE RECORDS SUMMARY | 2024-02-24 20:34 | XMS_ITS | Encounter Summary ---
Author Organization [facility] Address [address] [place] [address] Care Team Providers Care Extension Service Supervisor Name Role Phone Brian Mon MD Primary Care Provider Encounter Details Date Type Department Care Team (Late st Contact Info) Description 07/31/2023 External Device Data STL ABSTRACTION Provider, Abstract [...] on filedocumented in this encounter Care Teams Extension Service Supervisor Relationship Specialty Start Date End Date Brian Mon MD [address] [place] [address] PCP - General Internal Medicine 07/15/19 documented as of this encounter
--- OUTSIDE RECORDS SUMMARY | 2024-02-24 20:34 | XMS_ITS | Encounter Summary ---
Author Organization [facility] Address [address] [place] [address] Care Team Providers Care Gaming Worker Name Role Phone Brian Mon MD Primary Care Provider Encounter Details Date Type Department Care Team (Late st Contact Info) Description 10/02/2023 External Device Data STL ABSTRACTION Provider, Abstract [...] on filedocumented in this encounter Care Teams Gaming Worker Relationship Specialty Start Date End Date Brian Mon MD [address] [place] [address] PCP - General Internal Medicine 07/15/19 documented as of this encounter
--- OUTSIDE RECORDS SUMMARY | 2024-02-24 20:34 | XMS_ITS | Encounter Summary ---
Author Organization [facility] Address [address] [place] [address] Care Team Providers Care Instructor Adjunct Pharmacy Technician Name Role Phone Brian Mon MD Primary Care Provider Encounter Details Date Type Department Care Team (Late st Contact Info) Description 10/24/2023 External Device Data STL ABSTRACTION Provider, Abstract [...] filedocumented in this encounter Care Teams Instructor Adjunct Pharmacy Technician Relationship Specialty Start Date End Date Brian Mon MD [address] [place] [address] PCP - General Internal Medicine 07/15/19 documented as of this encounter
--- OUTSIDE RECORDS SUMMARY | 2024-02-24 20:34 | XMS_ITS | Encounter Summary ---
Author Organization [facility] Address [address] [place] [address] Care Team Providers Care Him Assistant Name Role Phone Brian Mon MD Primary Care Provider Reason for Visit * Reason Onset Date Comments bacterial vaginosis 09/10/2023 Encounter Details Date Type Department Care Team (Late st Contact Info) Description 09/10/2023 Telephone [facility] OBGYN [address] [facility] [address] [address] [facility] [address] [place] [address] [place] [address] [place] [address] bacterial vaginosis Social History Tobacco Use Types Packs/Day Years [...] Telephone Encounter - Julia Miller RN - 09/10/2023 11:08 AM CDT Incoming call from pt, she states she had intercourse with her and is now experiencing another episode of BV and would like to have metrogel called in. She does have an appt with the [facility] but it is not until September. Please Advise Chantelle RN, BSN documented in this encounter Plan of Treatment Not on file documented as of this encounter Visit Diagnoses Not on filedocumented in this encounter Care Teams Him Assistant Relationship Specialty Start Date End Date Brian Mon MD [address] [place] [address] PCP - General Internal Medicine 07/15/19 documented as of this encounter
--- OUTSIDE RECORDS SUMMARY | 2024-02-24 20:34 | XMS_ITS | Encounter Summary ---
Author Organization [facility] Address [address] [place] [address] Care Team Providers Care School Coordinator Name Role Phone Brian Mon MD Primary Care Provider Reason for Visit * Reason Onset Date Comments Breast Problem 09/13/2023 Encounter Details Date Type Department Care Team (Late st Contact Info) Description 09/13/2023 Telephone [facility] OBGYN [address] [place] [address] [place] [address] [facility] [address] [place] [address] Breast Problem Social History Tobacco Use Types Packs/Day [...] Miscellaneous Notes * Telephone Encounter - Karen Kraft - 09/13/2023 3:27 PM CDT Patient left voicemail stating she is producing excess breast milk for over two years and would like a prescription called in for this condition. Patient did not specify a pharmacy but did note she has surgery scheduled for 09/27/2023 documented in this encounter Plan of Treatment Not on file documented as of this encounter Visit Diagnoses Not on filedocumented in this encounter Care Teams School Coordinator Relationship Specialty Start Date End Date Brian Mon MD [address] [place] [address] PCP - General Internal Medicine 07/15/19 documented as of this encounter
--- OUTSIDE RECORDS SUMMARY | 2024-02-24 20:34 | XMS_ITS | Encounter Summary ---
Author Organization [facility] Address [address] [place] [address] Care Team Providers Care Director Behavioral Health Name Role Phone Brian Mon MD Primary Care Provider [phone] Encounter Details Date Type Department Care Team (Late st Contact Info) Description 12/11/2023 External Device Data STL ABSTRACTION Provider, [...] filedocumented in this encounter Care Teams Director Behavioral Health Relationship Specialty Start Date End Date Brian Mon MD [address] [place] [address] PCP - General Internal Medicine 07/15/19 documented as of this encounter
--- OUTSIDE RECORDS SUMMARY | 2024-02-24 20:34 | XMS_ITS | Encounter Summary ---
Author Organization [facility] Address [address] [place] [address] Care Team Providers Care Dining Room Manager Name Role Phone Brian Mon MD Primary Care Provider Encounter Details Date Type Department Care Team (Late st Contact Info) Description 07/16/2023 Orders Only [facility] OBGYN [address] [facility] [address] [address] [facility] [address] [place] [address] [place] [address] [place] [address] Social History Tobacco Use Types Packs/Day Years [...] on filedocumented in this encounter Care Teams Dining Room Manager Relationship Specialty Start Date End Date Brian Mon MD [address] [place] [phone] PCP - General Internal Medicine 07/15/19 documented as of this encounter
--- OUTSIDE RECORDS SUMMARY | 2024-02-24 20:34 | XMS_ITS | Encounter Summary ---
Author Organization [facility] Address [address] [place] [address] Care Team Providers Care Proposal Coordinator Name Role Phone Brian Mon MD Primary Care Provider Encounter Details Date Type Department Care Team (Late st Contact Info) Description 07/17/2023 External Device Data STL ABSTRACTION Provider, Abstract [...] on filedocumented in this encounter Care Teams Proposal Coordinator Relationship Specialty Start Date End Date Brian Mon MD [address] [place] [address] PCP - General Internal Medicine 07/15/19 documented as of this encounter
--- OUTSIDE RECORDS SUMMARY | 2024-02-24 20:34 | XMS_ITS | Encounter Summary ---
Author Organization [facility] Address [address] [place] [address] Care Team Providers Care Hvac Design Mechanical Engineer Name Role Phone Brian Mon MD Primary Care Provider Reason for Visit * Reason Comments Med Change Request Encounter Details Date Type Department Care Team (Late st Contact Info) Description 01/08/[facility]24 [facility] OBGYN [address] [facility] [address] [address] [facility] [address] [place] [address] [place] [address] [facility] [address] [place] [address] Social History Tobacco Use Types Packs/Day Years [...] on filedocumented in this encounter Care Teams Hvac Design Mechanical Engineer Relationship Specialty Start Date End Date Brian Mon MD [address] [place] [address] PCP - General Internal Medicine 07/15/19 documented as of this encounter
--- OUTSIDE RECORDS SUMMARY | 2024-02-24 20:34 | XMS_ITS | Encounter Summary ---
Author Organization [facility] Address [address] [place] [address] Care Team Providers Care Supervisor Insulation Name Role Phone Brian Mon MD Primary Care Provider Reason for Visit * Reason Comments Med Refill Encounter Details Date Type Department Care Team (Late st Contact Info) Description 08/28/2023 Refill [facility] OBGYN [address] [facility] [address] [address] [facility] [address] [place] [address] [place] [address] [place] [address] Social History Tobacco Use Types [...] filedocumented in this encounter Care Teams Supervisor Insulation Relationship Specialty Start Date End Date Brian Mon MD [address] [place] [address] PCP - General Internal Medicine 07/15/19 documented as of this encounter
--- OUTSIDE RECORDS SUMMARY | 2024-02-24 20:34 | XMS_ITS | Encounter Summary ---
Author Organization [facility] Address [address] [place] [address] Care Team Providers Care Delimer Name Role Phone Brian Mon MD Primary [...] on filedocumented in this encounter Care Teams Delimer Relationship Specialty Start Date End Date Brian Mon MD [address] [place] [address] PCP - General Internal Medicine 07/15/19 documented as of this encounter
--- OUTSIDE RECORDS SUMMARY | 2024-02-24 20:35 | XMS_ITS | Encounter Summary ---
Author Organization [facility] Address [address] [place] [address] Care Team Providers Care Zinc Etcher Name Role Phone Brian Mon MD Primary Care Provider Reason for Visit * Reason Comments Bladder Infection Encounter Details Date Type Department Care Team (Late st Contact Info) Description 03/01/2022 2:00 PM REHEAT FURNACE OPERATOR Office Visit [facility] OBGYN [address] [facility] [address] [address] [facility] [address] [place] [address] [place] [address] [place] [address] UTI symptoms (Primary Dx); Female pelvic pain; Encounter for test, result negative Social History Tobacco Use Types Packs/Day Years [...] suspected to have Coronavirus/COVID-19? No / Unsure 03/01/2022 1:42 PM REHEAT FURNACE OPERATOR documented as of this encounter Last Filed Vital Signs Vital Sign Reading Time Taken Comments Blood Pressure 118/76 03/01/2022 1:55 PM REHEAT FURNACE OPERATOR Pulse - - Temperature - - Respiratory Rate - - Oxygen Saturation - - Inhaled Oxygen Concentration - - Weight 77.6 kg (171 lb) 03/01/2022 1:55 PM REHEAT FURNACE OPERATOR Height 160 cm (5' 3 ) 03/01/2022 1:55 PM REHEAT FURNACE OPERATOR Body Mass Index 30.29 03/01/2022 1:55 PM REHEAT FURNACE OPERATOR documented in this encounter Progress Notes * Lisette De Santiago, AUTO BODY REPAIRER FIBERGLASS - 03/01/2022 4:28 PM CST CC: urinary tract infection HPI: Carito Madison is a 31 y.o. , presenting to the office with signs and symptoms of a urinary tract infection. She has had symptoms for 3 days. She has lower pelvic pain that comes and goes. It is cramping in nature. She is unsure if she has a UTI or not. NUCLEAR SUPERVISING OPERATOR History: Menses: regular, but heavy SA: yes, male partner Contraception: none Last pap: 01/29/2019, NIL Hx of HSV OB History Para Term AB Living 3 0 0 0 2 0 SAB IAB Ectopic Multiple Live Births 2 0 0 0 0 # Outcome Date GA Lbr Rojas/2nd Weight Sex Delivery Anes PTL Lv 3 2 SAB SAB 1 SAB SAB Current Outpatient Medications: valACYclovir (Valtrex) 500 mg tablet, Take 1 Tablet (500 mg) by mouth daily., Disp: 90 Tablet, Rfl:1 valACYclovir (Valtrex) 500 mg tablet, Take 1 Tablet (500 mg) by mouth 2 times daily., Disp: 14 Tablet, Rfl: 6 predniSONE (DELTASONE) 5 mg tablet, Take 5 mg by mouth daily., Disp: , Rfl: sertraline (ZOLOFT) 25 mg tablet, Take 25 mg by mouth daily., Disp: , Rfl: [...] Caused seizures Caused seizures Nitrofurantoin Monohyd/M-Cryst Itching ROS Review of Systems Constitutional: Negative. HENT: Negative. Eyes: Negative. Respiratory: Negative. Cardiovascular: Negative. Gastrointestinal: Negative. Musculoskeletal: Negative. Skin: Negative. Neurological: Negative. Endo/Heme/Allergies: Negative. Psychiatric/Behavioral: Negative. : pelvic pain - intermittent, Denies abnormal vaginal discharge and odor. No urinary problems. Physical Exam: Vitals: 03/01/22 1355 BP: 118/76 Weight: 77.6 kg (171 lb) Height: 5' 3 (1.6 m) Body mass index is 30.29 kg/m??. GEN: NAD, well-developed PULM: Regular breathing rate and effort ABD: nondistended : CVA tenderness not present NEURO: A&Ox3 PELVIC: not indicated Labs: Results for orders placed or performed in visit on 03/01/22 POC URINALYSIS DIPSTICK AUTOMATED Result Value Ref Range COLOR UA POC Yellow Pale to Dark Yellow CLARITY UA POC Clear Clear GLUCOSE UA POC Negative Negative, Normal BILIRUBIN UA POC Negative Negative KETONES UA POC Negative Negative SPECIFIC GRAVITY UA POC >=1.030 1.000 - 1.030 BLOOD UA POC Negative Negative PH UA POC 6.5 5.0 - 8.0 PROTEIN UA POC Negative Negative UROBILINOGEN UA POC 0.2 <2.0 mg/dL NITRITE UA POC Negative Negative LEUKOCYTE ESTERASE UA POC Negative Negative KIT LOT NUMBER POC [id number] KIT EXP DATE POC 06/26/23 POC , URINE Result Value Ref Range HCG QUAL URINE POC Negative Negative INTERNAL KIT QC POC Pass Pass KIT LOT NUMBER POC [id number] KIT EXP DATE POC 04/26/2023 ASSESSMENT/PLAN: Encounter Diagnoses Code Name Primary? R39.9 UTI symptoms Yes R10.2 Female pelvic pain Z32.02 Encounter for test, result negative - No UTI on urinalysis - Negative UPT - She states has a history of fibroids, curious if she could get ultrasound scheduled due to her pain. She scheduled this before she left. - Dr. Delgado will review her results and either myself or him will give her a call. Verbalized understanding RTC for ultrasound or prn AT FURNACE OPERATOR documented in this encounter Plan of Treatment Not on file documented as of this encounter Procedures Procedure Name Priority Date/Time Associated Diagnosis Comments POC , URINE Routine 03/01/2022 2:16 PM REHEAT FURNACE OPERATOR Encounter for test, result negative POC URINALYSIS DIPSTICK AUTOMATED Routine 03/01/2022 2:12 PM REHEAT FURNACE OPERATOR UTI symptoms documented in this encounter Results * POC , URINE (03/01/2022 2:16 PM REHEAT FURNACE OPERATOR) HCG QUAL URINE POC Negative Negative [facility] [address] INTERNAL KIT QC POC Pass Pass [facility] [address] [address] KIT LOT NUMBER POC [id number] [facility] [address] [address] KIT EXP DATE POC 04/26/2023 [facility] [address] Urine 03/01/2022 2:16 PM REHEAT FURNACE OPERATOR Lisette De Santiago NP POINT OF CARE TEST ING [facility] [address] CLIA [id number] [place] [address] * POC URINALYSIS DIPSTICK AUTOMATED (03/01/2022 2:12 PM REHEAT FURNACE OPERATOR) COLOR UA POC Yellow Pale to Dark Yellow [facility] [address] [address] CLARITY UA POC Clear Clear [facility] [address] [address] GLUCOSE UA POC Negative Negative, Normal [facility] [address] [address] BILIRUBIN UA POC Negative Negative [facility]BGYN [address] [address] KETONES UA POC Negative Negative [facility] [address] [address] SPECIFIC GRAVITY UA POC >=1.030 1.000 - 1.030 [facility] [address] [address] BLOOD UA POC Negative Negative [facility] BGY[facility] [address] [address] PH UA POC 6.5 5.0 - 8.0 [facility] N [address] [address] PROTEIN UA POC Negative Negative [facility] [address] [address] UROBILINOGEN UA POC 0.2 <2.0 mg/dL [facility] [address] [address] NITRITE UA POC Negative Negative [facility] [address] [address] LEUKOCYTE ESTERASE UA POC Negative Negative [facility] [address] [address] KIT LOT NUMBER POC 110,047 [facility] [address] [address] KIT EXP DATE POC 06/26/23 [facility] OBGYN [address] [address] Urine 03/01/2022 2:12 PM REHEAT FURNACE OPERATOR Lisette De Santiago AUTO BODY REPAIRER FIBERGLASS POINT OF CARE TEST ING [facility] [address] [address] CLIA [id number] [address] [place] [address] documented in this encounter Visit Diagnoses Diagnosis UTI symptoms- Primary Female pelvic pain Unspecified symptom associated with female genital organs Encounter for test, result negative documented in this encounter Care Teams Zinc Etcher Relationship Specialty Start Date End Date Brian Mon MD [address] [place] [address] PCP - General Internal Medicine 07/15/19 documented as of this encounter
--- OUTSIDE RECORDS SUMMARY | 2024-02-24 20:35 | XMS_ITS | Encounter Summary ---
Author Organization [facility] Address [address] [place] [address] Care Team Providers Care Manager Supply Chain Planning Name Role Phone Brian Mon MD Primary Care Provider [phone] Reason for Visit * Reason Onset Date Comments Medical Records 08/12/2021 Encounter Details Date Type Department Care Team (Late st Contact Info) Description 08/12/2021 Telephone [facility] OBGYN [address], [place] [address] [place] [address] [facility] 230[place] [address] Medical Records Social History Tobacco Use Types Packs/Day Years [...] encounter Miscellaneous Notes * Telephone Encounter - Francie Albright - 08/24/2021 9:55 AM CDT Called and spoke with pt, explained that she will need to contact [facility] [phone] to get US Images, pt stated she will contact them. * Telephone Encounter - Iris Lucio RN - 08/12/2021 1:01 PM CDT States that she requested records on pt, she received part of the records but did not receive the US reports. Please advise. documented in this encounter Plan of Treatment Not on file documented as of this encounter Visit Diagnoses Not on filedocumented in this encounter Care Teams Manager Supply Chain Planning Relationship Specialty Start Date End Date Brian Mon MD [address] [place] [address] PCP - General Internal Medicine 07/15/19 documented as of this encounter
--- OUTSIDE RECORDS SUMMARY | 2024-02-24 20:35 | XMS_ITS | Encounter Summary ---
Author Organization [facility] Address [address] [place] [address] Care Team Providers Care Liquid Hydrogen Plant Operator Name Role Phone Brian Mon MD Primary Care Provider Reason for Visit * Reason Onset Date Comments Yeast Infection 04/26/2023 Encounter Details Date Type Department Care Team (Late st Contact Info) Description 04/26/2023 Telephone [facility] OBGYN [address] [address] [place] [address] [facility] [address] [address] Yeast Infection Social History Tobacco Use Types Packs/Day Years [...] Telephone Encounter - Julia Miller RN - 04/26/2023 8:42 AM INTRAVENOUS THERAPY NURSE Patient called in stating she has another bad yeast infection and wanted to have something sent in?She is having itching, white chunky discharge and no odor. She asked if she could have the suppositories if you will send something in over her coming into the office. Please Advise Thank You, Chantelle, RN, BSN AVENOUS THERAPY NURSE documented in this encounter Plan of Treatment Not on file documented as of this encounter Visit Diagnoses Not on filedocumented in this encounter Care Teams Liquid Hydrogen Plant Operator Relationship Specialty Start Date End Date Brian Mon MD [address] [place] [address] PCP - General Internal Medicine 07/15/19 documented as of this encounter
--- OUTSIDE RECORDS SUMMARY | 2024-02-24 20:35 | XMS_ITS | Encounter Summary ---
Author Organization [facility] Address [address] [place] [address] Care Team Providers Care Pattern Room Attendant Name Role Phone Brian Mon MD Primary Care Provider [phone] Reason for Visit * Reason Onset Date Comments Medication Refill 04/30/2023 Encounter Details Date Type Department Care Team (Late st Contact Info) Description 04/30/2023 Refill [facility] OBGYN [address] [facility] [address] [address] [facility] [address] [place] [address] [place] [address] [facility] [address] [place], [place] [id number] Social History Tobacco Use Types Packs/Day Years [...] on filedocumented in this encounter Care Teams Pattern Room Attendant Relationship Specialty Start Date End Date Brian Mon MD [address] [place] [address] PCP - General Internal Medicine 07/15/19 documented as of this encounter
--- OUTSIDE RECORDS SUMMARY | 2024-02-24 20:35 | XMS_ITS | Encounter Summary ---
Author Organization [facility] Address [address] [place] [address] Care Team Providers Care Survey Chief Name Role Phone Brian Mon MD Primary Care Provider Reason for Visit * Reason Comments Routine Visit Encounter Details Date Type Department Care Team (Late st Contact Info) Description 09/04/2020 8:45 AM CDT visit [facility] OBGYN [address] [facility] [address], [place] [address] [place] [id number] [place] [address] [address], [place] [address] 18 weeks gestation of (Primary Dx); Situational mixed anxiety and depressive disorder; Nausea Social History Tobacco Use Types Packs/Day Years Used Date Smoking Tobacco: Former Cigarettes Q uit: 12/11/2017 Smokeless Tobacco: Never Alcohol Use Standard Drinks/Week Comments Not Currently 0 (1 standard drink = 0.6 oz pur e alcohol) socially Comments Yes Sex and Gender Information Value Date Recorded Sex Assigned at Not on file Gender Identity Not on file Sexual Orientation Not on file COVID-19 Exposure Response Date Recorded In the last month, have you been in contact with someone who was confirmed or suspected to have Coronavirus / COVID-19? No / Unsure 09/04/2020 8:28 AM CDT documented as of this encounter Last Filed Vital Signs Vital Sign Reading Time Taken Comments Blood Pressure 118/72 09/04/2020 9:18 AM CDT Pulse - - Temperature - - Respiratory Rate - - Oxygen Saturation - - Inhaled Oxygen Concentration - - Weight 81.4 kg (179 lb 6.4 oz) 09/04/2020 9:18 A M CDT Height - - Body Mass Index 33.9 09/04/2020 8:38 AM CDT documented in this encounter Progress Notes * Sheldon Delgado MD - 09/04/2020 9:25 AM CDT [facility] Visit 30 y.o. S: This patient denies bleeding, loss of fluid, cramping and emesis. O: Vitals: 09/04/20 0918 BP: 118/72 Fundus is normal in size. heart tones are within normal limits. Her abdomen is , soft and not tender. There is no evidence of a DVT. A/P EDC- 01/30/2021 Prior : This patient had a spontaneous miscarriage at 12 weeks. She had a spontaneous miscarriage at 6 weeks. Herpes history: YES G1PO Neg AFP High Risk Category Placenta Previa HERPES LUPUS ADDISONS Baby ASA On prednisone/hydroxychloroquine and Zoloft. She did take progesterone until 12 weeks gestation. She is being followed in the maternal- medicine Center at [facility] because it is close to her house. documented in this encounter Plan of Treatment Not on file documented as of this encounter Visit Diagnoses Diagnosis 18 weeks gestation of - Primary state, incidental Situational mixed anxiety and depressive disorder Adjustment disorder with mixed anxiety and depressed mood Nausea Nausea alone documented in this encounter Care Teams Survey Chief Relationship Specialty Start Date End Date Brian Mon MD [address] [place] [address] PCP - General Internal Medicine 07/15/19 documented as of this encounter
--- OUTSIDE RECORDS SUMMARY | 2024-02-24 20:35 | XMS_ITS | Encounter Summary ---
Author Organization [facility] Address [address] [place] [address] Care Team Providers Care Materials And Processes Manager Name Role Phone Brian Mon MD Primary Care Provider Encounter Details Date Type Department Care Team (Late st Contact Info) Description 03/17/2022 Orders Only [facility] OBGYN [address] [facility] [address] [facility] [address] [place] [address] [place] [address] [place] [address] Social History Tobacco Use Types [...] suspected to have Coronavirus/COVID-19? No / Unsure 03/15/2022 11:35 AM MEDIA PRODUCER documented as of this encounter Plan of Treatment Not on file documented as of this encounter Visit Diagnoses Not on filedocumented in this encounter Care Teams Materials And Processes Manager Relationship Specialty Start Date End Date Brian Mon MD [address] [place] [address] PCP - General Internal Medicine 07/15/19 documented as of this encounter
--- OUTSIDE RECORDS SUMMARY | 2024-02-24 20:35 | XMS_ITS | Encounter Summary ---
Author Organization [facility] Address [address] [place] [address] Care Team Providers Care Roll Forming Machine Set Up Mechanic Name Role Phone Brian Mon MD Primary Care Provider Reason for Referral * Eval and Treat (Routine) - Closed Specialty Diagnoses / Procedures Referred By Jud t Referred To Contact Urology Diagnoses Pelvic pain in female H/O bladder problems Urinary frequency Procedures AR OFFICE/OUTPATIENT ESTABLISHED MOD MDM 30-39 MIN AR OFFICE/OUTPATIENT NEW MODERATE MDM 45-[place] [address] [place] [address] [facility] [address] [facility] [address] [place] [address] Referral ID Status Reason Start Date Expiration Date Visits Re quested Visits Authorized [id number] Closed 11/15/2022 11/15/2023 1 1 Reason for Visit * Reason Comments /fu after us Encounter Details Date Type Department Care Team (Late st Contact Info) Description 11/15/2022 9:00 AM CDT Office Visit [facility] OBGYN [address] [address] [address] [facility] [address] [place] [address] [place] [address] [place] [address] Pelvic pain in female (Primary Dx); H/O bladder problems; Urinary frequency Social History Tobacco Use Types Packs/Day Years [...] Reading Time Taken Comments Blood Pressure 114/80 11/15/2022 8:55 AM CDT Pulse - - Temperature - - Respiratory Rate - - Oxygen Saturation - - Inhaled Oxygen Concentration - - Weight 79.8 kg (176 lb) 11/15/2022 8:55 AM CDT Height 157.5 cm (5' 2 ) 11/15/2022 8:55 AM CDT Body Mass Index 32.19 11/15/2022 8:55 AM CDT documented in this encounter Progress Notes * Lisette De Santiago, KINGA - 11/15/2022 10:46 AM CDT CC: Ultrasound follow up HPI: Carito Madison is a 32 y.o. , presenting to the office to follow up after her ultrasound. She had the ultrasound done due to pelvic pain. The pain comes and goes and has been going on for months. Periods are heavy and painful. Sex is also painful. Hx of a section on 12/30/2020. States she had a traumatic delivery and her baby had to be in the NICU. She had a placenta previa and marginal insertion of umbilical cord during that . Had a hemorrhage during that delivery. She delivered at [place]. Does have a history of bladder problems. Has consistent urinary urgency and frequency. She had a negative urine culture last week. REGISTERED CLIENT ASSOCIATE History: Menses: regular SA: yes, male Contraception: none, would be happy with Last pap: 11/08/2022, ASCUS. HPV negative OB History Para Term AB Living 3 [...] HX MEDIAN NERVE REPAIR Current Outpatient Medications: sertraline (ZOLOFT) 25 mg tablet, Take 1 Tablet (25 mg) by mouth daily., Disp: 90 Tablet, Rfl: 0 valACYclovir (Valtrex) 500 mg tablet, Take 1 [...] seizures Nitrofurantoin Monohyd/M-Cryst Itching Physical Exam: Vitals: 11/15/22 0855 BP: 114/80 Weight: 79.8 kg (176 lb) Height: 5' 2 (1.575 m) Body mass index is 32.19 kg/m??. GEN: NAD, well-developed PULM: Regular breathing rate and effort ABD: nondistended NEURO: A&Ox3 PELVIC: examination not indicated due to recent exam Labs: No results found for this visit on 11/15/22. ASSESSMENT/PLAN: Encounter Diagnoses Code Name Primary? R10.2 Pelvic pain in female Yes Z87.448 H/O bladder problems R35.0 Urinary frequency - Discussed ultrasound results, pending Dr. Delgado's review - Ultrasound results: - Uterus: 88 x 42 x 50 mm - Endometrial linin.2 mm - Right ovary: 24 x 17 x 22 mm - Left ovary: 18 x 23 x 10 mm - Ultrasound normal from REGISTERED CLIENT ASSOCIATE standpoint. - During her scan she had been asked to empty her bladder. She states she emptied it fully but on her ultrasound her bladder was still full. She states she urinates all the time. Does have a family hx of bladder problems. - Discussed possible urinary relation due to her bladder being full on her scan and her other urinary symptoms. Recommended urology follow up. Referral placed - Hx of a pretty traumatic per her reports. She is concerned there could possible be a bladder injury. - Discussed possibility of pelvic floor dysfunction due to her delivery. Discussed pelvic floor PT,not interested in this at this time - Also discussed endometriosis due to her painful periods and pain with sex. Not interested in evaluation for this currently. Will keep it in the back of her mind RTC in 1 year or prn Orders Placed This Encounter *[facility] ([facility]) documented in this encounter Plan of Treatment Scheduled Referrals Name Type Priority Associated Diagnoses Orde r Schedule AMB REFERRAL TO UROLOGY Outpatient Referral Routine Pelvic pain in female H/O bladder problems Urinary frequency Ordered: 11/15/2022 documented as of this encounter Visit Diagnoses Diagnosis Pelvic pain in female- Primary Unspecified symptom associated with female genital organs H/O bladder problems Personal history of other disorder of urinary system Urinary frequency documented in this encounter Care Teams Roll Forming Machine Set Up Mechanic Relationship Specialty Start Date End Date Brian Mon MD [address] [place] [address] PCP - General Internal Medicine 07/15/19 documented as of this encounter
--- OUTSIDE RECORDS SUMMARY | 2024-02-24 20:35 | XMS_ITS | Encounter Summary ---
Author Organization [facility] Address [address] [place] [address] Care Team Providers Care Financial Sales Associate Name Role Phone Brian Mon MD Primary Care Provider Reason for Visit * Reason Onset Date Comments Eyelid Lesion 12/24/2022 Encounter Details Date Type Department Care Team (Late st Contact Info) Description 12/24/2022 Nurse Triage [facility] Clinical Support [address] [place] [address] Matilde Iyer RN Social History Tobacco Use Types Packs/Day [...] encounter Miscellaneous Notes * Telephone Encounter - Matilde Iyer RN - 12/24/2022 9:26 AM CDT Carito Madison calls after hours exchange with concern for herpes lesions on her eye. Reports redness, swelling, burning sensation on upper and lower R eyelid. Sent image via MMM. Reports being stressed recently. Has a few doses of Valtrex at home. Patient does not want to go to ED or UC near her. Contacted provider commercial litigation attorney, Dr. Martines. Per Dr. Martines, patient to contact PCP or eye doctor. Provider not comfortable treating eye infection, only genital herpes. Notified patient of MD's recommendation. Patient verbalized understanding. Reason for Disposition Redness spreads around the eye (both upper and lower eyelid are red) Protocols used: Sty-A-AH documented in this encounter Plan of Treatment Not on file documented as of this encounter Visit Diagnoses Not on filedocumented in this encounter Care Teams Financial Sales Associate Relationship Specialty Start Date End Date Brian Mon MD [address] [place] [address] PCP - General Internal Medicine 07/15/19 documented as of this encounter
--- OUTSIDE RECORDS SUMMARY | 2024-02-24 20:35 | XMS_ITS | Encounter Summary ---
Author Organization [facility] Address [address] [place] [address] Care Team Providers Care Graphics Artist Name Role Phone Brian Mon MD Primary Care Provider Encounter Details Date Type Department Care Team (Late st Contact Info) Description 04/27/2023 Orders Only [facility] Clinical Support [address] [place] [id number] Dyllan Bruner, RN Social History Tobacco Use Types Packs/Day [...] on filedocumented in this encounter Care Teams Graphics Artist Relationship Specialty Start Date End Date Brian Mon MD [address] [place] [address] PCP - General Internal Medicine 07/15/19 documented as of this encounter
--- OUTSIDE RECORDS SUMMARY | 2024-02-24 20:35 | XMS_ITS | Encounter Summary ---
Author Organization [facility] Address [address] [place] [address] Care Team Providers Care Fence Installer Helper Name Role Phone Brian Mon MD Primary Care Provider Encounter Details Date Type Department Care Team (Late st Contact Info) Description 10/05/2020 Orders Only [facility] O[facility]YN [address] [place] [address] Iris Lucio RN [address] [place] [address] Herpes simplex vulvovaginitis Social History Tobacco Use Types Packs/Day Years [...] have Coronavirus / COVID-19? No / Unsure 09/21/2020 12:00 PM CDT documented as of this encounter Progress Notes * Iris Lucio RN - 10/05/2020 9:59 AM CDT Pt requested refill of Valtrex to pharmacy of choice. documented in this encounter Plan of Treatment Not on file documented as of this encounter Visit Diagnoses Diagnosis Herpes simplex vulvovaginitis documented in this encounter Care Teams Fence Installer Helper Relationship Specialty Start Date End Date Brian Mon MD [address] [place] [address] PCP - General Internal Medicine 07/15/19 documented as of this encounter
--- OUTSIDE RECORDS SUMMARY | 2024-02-24 20:35 | XMS_ITS | Encounter Summary ---
Author Organization [facility] Address [address] [place] [address] Care Team Providers Care Substance Abuse Counselor Name Role Phone Brian Mon MD Primary Care Provider Encounter Details Date Type Department Care Team (Late st Contact Info) Description 04/09/2023 Nurse Triage [facility]'s [facility] Clinical Support [address] [place] [address] Dyllan Bruner, RN Social History Tobacco Use [...] on filedocumented in this encounter Care Teams Substance Abuse Counselor Relationship Specialty Start Date End Date Brian Mon MD [address] [place] [address] PCP - General Internal Medicine 07/15/19 documented as of this encounter
--- OUTSIDE RECORDS SUMMARY | 2024-02-24 20:35 | XMS_ITS | Encounter Summary ---
Author Organization [facility] Address [address] [place] [address] Care Team Providers Care Dietetic Technician Registered Name Role Phone Brian Mon MD Primary Care Provider Reason for Referral * Laboratory Services (Routine) - Open Specialty Diagnoses / Procedures Referred By Contac t Referred To Contact Diagnoses Vaginal itching Routine screening for STI (sexually transmitted infection) Procedures VAGINOSIS/[place] [address] [place] [address] Referral ID Status Reason Start Date Expiration Date Visits Re quested Visits Authorized [id number] Open 07/02/2023 08/01/2024 1 1 Reason for Visit * Reason Comments Bladder Infection Pain, itching, disom fort. ER visit on Sat * Laboratory Services (Routine) - Open Specialty Diagnoses / Procedures Referred By Contac t Referred To Contact Diagnoses Vaginal itching Routine screening for STI (sexually transmitted infection) Procedures VAGINOSIS/V[place] [address] [place] [address] Referral ID Status Reason Start Date Expiration Date Visits Re quested Visits Authorized [id number] Open 07/02/2023 08/01/2024 1 1 Encounter Details Date Type Department Care Team (Late st Contact Info) Description 07/02/2023 9:30 AM CDT Office Visit [facility] OBGYN [address] [facility] [address] [address] [facility] [address] [place] [address] [place] [address] [place] [address] Vaginal itching (Primary Dx); Routine screening for STI (sexually transmitted infection); UTI symptoms Social History Tobacco Use Types [...] Sign Reading Time Taken Comments Blood Pressure 122/68 07/02/2023 9:31 AM CDT Pulse - - Temperature - - Respiratory Rate - - Oxygen Saturation - - Inhaled Oxygen Concentration - - Weight 79.8 kg (176 lb) 07/02/2023 9:31 AM CDT Height - - Body Mass Index 32.19 04/26/2023 1:29 PM CREDIT VERIFICATION CLERK documented in this encounter Progress Notes * Lisette De Santiago NP - 07/02/2023 9:55 AM CDT CC: vaginal itching HPI: Carito Madison is a 33 y.o. , Patient's last menstrual period was 06/05/2023 (approximate). presenting to the office with complaints of vaginal itching. She notices symptoms reoccur 4-5 days ago but this has been coming and going for months. Has this problem every time after she has intercourse with her . Went to the ER on Sunday due to the itching being so bad. Itches mainly on the outside near her vaginal opening, also itches near her urethra. Had a negative vaginitis panel in the ER. Has tried Diflucan multiple times. Has also done metrogel, monistat, and Lotrisone with no relief. Denies vaginal discharge and odor. Has tried switching soaps, avoiding triggers, doing probiotics and boric acid with no relief. This is an ongoing issue. 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: Menses: regular LMP: 06/05/2023 SA: yes, male Contraception: none Last pap: unknown OB History Para Term AB Living 3 0 0 0 2 0 SAB IAB Ectopic Multiple Live Births 2 0 0 0 0 # Outcome Date GA Lbr Rojas/2nd Weight Sex Delivery Anes PTL Lv 3 2 SAB SAB 1 SAB SAB Current Outpatient Medications: clobetasoL (TEMOVATE) 0.05 % Cream, Apply to affected area 2 times daily for 14 days., Disp: 45 Gram, Rfl: 0 hydrOXYzine HCL (ATARAX) 10 mg tablet, Take 1 Tablet (10 mg) by mouth 3 times daily as needed for Itching., Disp: 30 Tablet, Rfl: 1 lidocaine 3 % Cream, Apply to affected area 3 times daily., Disp: 43 Gram, Rfl: 0 valACYclovir (Valtrex) 1 gram tablet, Take 1 [...] times daily., Disp: 60 Tablet, Rfl: 11 buPROPion HCL (Wellbutrin XL) 150 mg Extended Release 24 hour tablet, Take 1 Tablet (150 mg) by mouth daily in the morning. (Patient not taking: Reported on 04/26/2023), Disp: 90 Tablet, Rfl: 1 cephALEXin (KEFLEX) 500 mg capsule, Take 1 Capsule (500 mg) by mouth 2 times daily. (Patient not taking: Reported on 04/26/2023), Disp: 10 Capsule, Rfl: 0 clomiPHENE citrate (CLOMID) 50 mg tablet, Take 3 tablets daily on days 5 through 9. (Patient not taking: Reported on 04/26/2023), Disp: 15 Tablet, Rfl: 5 predniSONE (DELTASONE) [...] seizures Nitrofurantoin Monohyd/M-Cryst Itching Physical Exam: Vitals: 07/02/23 0931 BP: 122/68 Weight: 79.8 kg (176 lb) Body mass index is 32.19 kg/m??. GEN: NAD, well-developed PULM: Regular breathing rate and effort ABD: soft, nondistended NEURO: A&Ox3 PELVIC: Labia majora and minora are erythematic, vaginal introitus is erythematic, Vaginal canal has a thick chunky white discharge, metrogel also present in vaginal canal, Cervix is WNL without lesions. No CMT tenderness. Uterus and adnexa both WNL. Labs: Results for orders placed or performed in visit on 07/02/23 POC URINALYSIS DIPSTICK AUTOMATED Result Value Ref Range COLOR UA POC Yellow Pale to Dark Yellow CLARITY UA POC Cloudy (A) Clear GLUCOSE UA POC Negative Negative, Normal BILIRUBIN UA POC Negative Negative KETONES UA POC Negative Negative SPECIFIC GRAVITY UA POC 1.015 1.000 - 1.030 BLOOD UA POC Negative Negative PH UA POC 5.5 5.0 - 8.0 PROTEIN UA POC Negative Negative UROBILINOGEN UA POC 0.2 <2.0 mg/dL NITRITE UA POC Negative Negative LEUKOCYTE ESTERASE UA POC Negative Negative KIT LOT NUMBER POC [phone] KIT EXP DATE POC [id number] ASSESSMENT/PLAN: Encounter Diagnoses Code Name Primary? N89.8 Vaginal itching Yes Z11.3 Routine screening for STI (sexually transmitted infection) R39.9 UTI symptoms - very inflammed and irritated externally, has tried Diflucan multiple times without relief. Negative vaginitis swab at [place] ER - there is a thick chunky discharge present internally but she does admit to recently using monistat and metrogel - No relief with Lotrisone, will try Clobetasol BID for 14 days, if no improvement consider vulvar biopsy - repeat vaginitis panel sent per her request, if yeast is present will try Brexafemme - Atarax sent to use as needed for itching - mycoplasma/ureaplasma panel also sent - discussed considering to go to [facility] due to this being a chronic and recurrentissue, will send her information for this RTC prn or for well woman exam documented in this encounter Plan of Treatment Not on file documented as of this encounter Procedures Procedure Name Priority Date/Time Associated Diagnosis Comments VAGINOSIS/VAGINITIS PANEL PLUS Routine 07/02/2023 10:42 AM CDT Vaginal itching Routine screening for STI (sexually transmitted infection) MYCOPLASMA AND UREAPLASMA DETECTION Routine 07/02/2023 10:42 AM CDT Vaginal itching Routine screening for STI (sexually transmitted infection) POC URINALYSIS DIPSTICK AUTOMATED Routine 07/02/2023 9:34 AM CDT UTI symptoms documented in this encounter Results * MYCOPLASMA AND UREAPLASMA DETECTION (07/02/2023 10:42 AM CDT) MYCOPLASMA HOMINIS, PCR NOT DETECTED [facility], Comment: REFEERENCE RANGE: NOT DETECTED Methodology: Real-Time PCR This test was developed and its analytical performance characteristics have been determined by [facility]. It has not been cleared or approved by FDA. This assay has been validated pursuant to the CLIA regulations and is used for clinical purposes. MYCOPLASMA GENITALIUM, rRNA, TMA NOT DETECTED [facility], Comment: REFERENCE RANGE: NOT DETECTED UREAPLASMA PARVUM PCR NOT DETECTED [facility]/ [facility], UREAPLASMA UREALYTICUM PCR NOT DETECTED [facility]/ [facility], Comment: REFERENCE RANGE: NOT DETECTED Methodology: Real-Time PCR This test was developed and its analytical performance characteristics have been determined by [facility]. It has not been cleared or approved by FDA. This assay has been validated pursuant to the CLIA regulations and is used for clinical purposes. Test Performed at: [facility] [facility], [address] [place] [address] ??[phone] Dyan Hemphill MD,PhD,DEAN Genital SPECIMEN FROM VAGINA / Unknown 07/02/2023 10:42 AM CDT 07/03/2023 5:24 AM CDT Lisette De Santiago NP MICROBIOLOGY - GEN ERAL ORDERABLES [facility] [phone] [facility], [address] [place] [phone] * (ABNORMAL) VAGINOSIS/VAGINITIS PANEL PLUS (07/02/2023 10:42 AM CDT) BACTERIAL VAGINOSIS NEGATIVE [facility], Comment: REFERENCE RANGE: NEGATIVE PATTI SPECIES DETECTED(A) Qu est [facility]/ [facility], PATTI GLABRATA NOT DETECTED [facility], Comment: REFERENCE RANGE: NOT DETECTED Patti species C. albicans, C. tropicalis, C. parapsilosis, and/or C. dubliniensis can be detected but not differentiated, in the Patti spp. result. TRICHOMONAS VAGINALIS (TV), TMA NOT DETECTED [facility], Comment: REFERENCE RANGE: NOT DETECTED C TRAC RNA NOT DETECTED [facility], N.GONORRHOEAE RNA, TMA NOT DETECTED [facility], Comment: REFERENCE RANGE: ??NOT DETECTED For additional information, please refer to https://education.Integrien/faq/ABE556 (This link is being provided for informational/ educational purposes only.) Test Performed at: [facility], [address] [place], [place] ??[phone] Dyan Hemphill MD,PhD,DEAN Genital SPECIMEN FROM VAGINA / Unknown 07/02/2023 10:42 AM CDT 07/03/2023 5:24 AM CDT Lisette De Santiago NP MICROBIOLOGY - GEN ERAL ORDERABLES [facility] [phone] [facility], [address] [place] [address] * (ABNORMAL) POC URINALYSIS DIPSTICK AUTOMATED (07/02/2023 9:34 AM CDT) COLOR UA POC Yellow Pale to Dark Yellow [facility] [address] CLARITY UA POC Cloudy(A) Clear [facility] [address] GLUCOSE UA POC Negative Negative, Normal [facility] [address] BILIRUBIN UA POC Negative Negative [facility] [address] KETONES UA POC Negative Negative [facility] [address] SPECIFIC GRAVITY UA POC 1.015 1.000 - 1.030 [facility] [address] BLOOD UA POC Negative Negative [facility] [address] PH UA POC 5.5 5.0 - 8.0 [facility] N [address] PROTEIN UA POC Negative Negative [facility] [address] UROBILINOGEN UA POC 0.2 <2.0 mg/dL [facility] [address] NITRITE UA POC Negative Negative [facility] [address] LEUKOCYTE ESTERASE UA POC Negative Negative [facility] [address] KIT LOT NUMBER POC [id number] [facility] [address] KIT EXP DATE POC [id number] [facility] [address] [address] Urine 07/02/2023 9:34 AM CDT Lisette De Santiago PUBLIC HEALTH SPECIALIST POINT OF CARE TEST ING [facility] [address] CLIA [id number] [address] [place] [address] documented in this encounter Visit Diagnoses Diagnosis Vaginal itching- Primary Pruritus of genital organs Routine screening for STI (sexually transmitted infection) Screening examination for venereal disease UTI symptoms documented in this encounter Care Teams Dietetic Technician Registered Relationship Specialty Start Date End Date Brian Mon MD [address] [place] [address] PCP - General Internal Medicine 07/15/19 documented as of this encounter
--- OUTSIDE RECORDS SUMMARY | 2024-02-24 20:35 | XMS_ITS | Encounter Summary ---
Author Organization [facility] Address [address] [place] [address] Care Team Providers Care Shingle Carrier Name Role Phone Brian Mon MD Primary Care Provider Reason for Visit * Reason Onset Date Comments Medication Question 09/17/2020 Encounter Details Date Type Department Care Team (Late st Contact Info) Description 09/17/2020 Nurse Triage [facility] Nurse television anchor [address] [place] [address] Jen Saeed RN Social History Tobacco Use Types Packs/Day [...] have Coronavirus / COVID-19? No / Unsure 09/10/2020 7:17 AM CDT documented as of this encounter Miscellaneous Notes * Telephone Encounter - Jen Saeed RN - 09/17/2020 1:27 PM CDT Reason for Disposition ??? [1] Caller has URGENT medication question about med that PCP or specialist prescribed AND [2] triager unable to answer question Protocols used: MEDICATION QUESTION CALL-A-AH Dx with UTI on 09/15/20 at [facility] L&D, Pt states she had an Allergic reaction (itching and lips blistered) to macrobid and was told to stop macrobid by [facility] and call Dr Delgado. (took two doses of macrobid) Dr Almaz Martines, rail bonder, paged. Dr Martines repaged. Report given to Dr Martines's nurse, Dr Martines's nurse will call the pt back. Pt notified, pt verbalized understanding. documented in this encounter Plan of Treatment Not on file documented as of this encounter Visit Diagnoses Not on filedocumented in this encounter Care Teams Shingle Carrier Relationship Specialty Start Date End Date Brian Mon MD [address] [place] [phone] PCP - General Internal Medicine 07/15/19 documented as of this encounter
--- OUTSIDE RECORDS SUMMARY | 2024-02-24 20:35 | XMS_ITS | Encounter Summary ---
Author Organization [facility] Address [address] [place] [address] Care Team Providers Care Burling And Joining Supervisor Name Role Phone Brian Mon MD Primary Care Provider Encounter Details Date Type Department Care Team (Late st Contact Info) Description 03/28/2023 External Device Data ST[facility] ABSTRACTION Provider, Abstract [...] on filedocumented in this encounter Care Teams Burling And Joining Supervisor Relationship Specialty Start Date End Date Brian Mon MD [address] [place] [address] PCP - General Internal Medicine 07/15/19 documented as of this encounter
--- OUTSIDE RECORDS SUMMARY | 2024-02-24 20:35 | XMS_ITS | Encounter Summary ---
Author Organization [facility] Address [address] [place] [address] Care Team Providers Care Continuous Pickling Line Pickler Name Role Phone Brian Mon MD Primary Care Provider Encounter Details Date Type Department Care Team (Late st Contact Info) Description 03/30/2023 External Device Data STL ABSTRACTION Provider, Abstract [...] on filedocumented in this encounter Care Teams Continuous Pickling Line Pickler Relationship Specialty Start Date End Date Brian Mon MD [address] [place] [address] PCP - General Internal Medicine 07/15/19 documented as of this encounter
--- OUTSIDE RECORDS SUMMARY | 2024-02-24 20:35 | XMS_ITS | Encounter Summary ---
Author Organization [facility] Address [address] [place] [address] Care Team Providers Care Rubber Tile Floor Layer Name Role Phone Brian Mon MD Primary Care Provider Reason for Visit * Reason Onset Date Comments paperwork 10/28/2020 Encounter Details Date Type Department Care Team (Late st Contact Info) Description 10/28/2020 Telephone [facility] OBGYN [address], [place] [address] [place] [address] [facility] [address], [place] [address] paperwork Social History Tobacco Use Types Packs/Day Years [...] have Coronavirus / COVID-19? No / Unsure 10/14/2020 3:43 PM CDT documented as of this encounter Miscellaneous Notes * Telephone Encounter - Krista Mullins - 10/28/2020 8:33 AM CDT This patient is requesting to be put on work rescritions of only working 5-6 hours a day. This patients want you to do because you have handled it previously. documented in this encounter Plan of Treatment Not on file documented as of this encounter Visit Diagnoses Not on filedocumented in this encounter Care Teams Rubber Tile Floor Layer Relationship Specialty Start Date End Date Brian Mon MD [address] [place] [address] PCP - General Internal Medicine 07/15/19 documented as of this encounter
--- OUTSIDE RECORDS SUMMARY | 2024-02-24 20:35 | XMS_ITS | Encounter Summary ---
Author Organization [facility] Address [address] [place] [address] Care Team Providers Care Jute Bag Clipper Name Role Phone Brian Mon MD Primary Care Provider Encounter Details Date Type Department Care Team (Late st Contact Info) Description 12/05/2022 Nurse Triage [facility] Clinical Support [address] [place] [address] Leti Dunn RN Social History Tobacco Use Types Packs/Day [...] Miscellaneous Notes * Telephone Encounter - Leti Dunn RN - 12/05/2022 7:33 PM CDT Reason for Disposition [1] Unable to urinate (or only a few drops) > 4 hours AND [2] bladder feels very full (e.g., palpable bladder or strong urge to urinate) Protocols used: Urination Pain - Female-A-AH Pt calling to report she was in [facility] ER earlier today with urinary retention. Unable to empty bladder fully. States they did scan & she was told there were no obstructions, and that her bladder was full at that time, as well as blood work (pt states WNL). States they referred her to follow up with a urologist & she has appt on , 12/07/22, but now sitting at home in the bathtub having bladder spasms, because now bladder so full & she is unable to empty. States she has tried everything to relax her pelvic muscles on the toilet, but unable to empty. Advised pt to returnto ER to be catheterized and have her bladder emptied. Pt verbalized understanding & is agreeable with plan of care. documented in this encounter Plan of Treatment Not on file documented as of this encounter Visit Diagnoses Not on filedocumented in this encounter Care Teams Jute Bag Clipper Relationship Specialty Start Date End Date Brian Mon MD [address] [place] [address] PCP - General Internal Medicine 07/15/19 documented as of this encounter
--- OUTSIDE RECORDS SUMMARY | 2024-02-24 20:35 | XMS_ITS | Encounter Summary ---
Author Organization [facility] Address [address] [place]: Epic Prelude ADT [place] [address] Care Team Providers Care Physical Chemistry Professor Name Role Phone Brian Mon MD Primary Care Provider Encounter Details Date Type Department Care Team (Latest Contact Info) Description 10/12/2020 Travel Social History Tobacco Use Types Packs/Day [...] have Coronavirus / COVID-19? Unable to assess 10/12/2020 10:06 AM CDT documented as of this encounter Plan of Treatment Not on file documented as of this encounter Visit Diagnoses Not on filedocumented in this encounter Care Teams Physical Chemistry Professor Relationship Specialty Start Date End Date Brian Mon MD [address] [place] [address] PCP - General Internal Medicine 07/15/19 documented as of this encounter
--- OUTSIDE RECORDS SUMMARY | 2024-02-24 20:35 | XMS_ITS | Encounter Summary ---
Author Organization [facility] Address [address] [place] [address] Care Team Providers Care Recorder Gravity Prospecting Name Role Phone Brian Mon MD Primary Care Provider Reason for Visit * Reason Onset Date Comments Constipation 11/05/2020 Encounter Details Date Type Department Care Team (Late st Contact Info) Description 11/05/2020 Telephone [facility] OBGYN [address], [place] [address] [place] [address] [facility] [address], [place] [address] Constipation Social History Tobacco Use Types Packs/Day Years [...] have Coronavirus / COVID-19? No / Unsure 11/02/2020 10:41 AM CDT documented as of this encounter Miscellaneous Notes * Telephone Encounter - Iris Lucio RN - 11/05/2020 10:26 AM CDT Pt states that she has been severely constipated since the beginning of her . She has taken mirilax, stool softeners, laxatives, and enemas without much relief. Also, pt talked to commercial sales director regarding fatigue and wanted to know if we were checking her levels for anemia. Pt instructed to try mag citrate per Dr. Delgado and her H&H was drawn on 10/14 and WNL. Pt verbalized understanding. documented in this encounter Plan of Treatment Not on file documented as of this encounter Visit Diagnoses Not on filedocumented in this encounter Care Teams Recorder Gravity Prospecting Relationship Specialty Start Date End Date Brian Mon MD [address] [place] [id number] PCP - General Internal Medicine 07/15/19 documented as of this encounter
--- OUTSIDE RECORDS SUMMARY | 2024-02-24 20:35 | XMS_ITS | Encounter Summary ---
Author Organization [facility] Address [address] [place]: Epic Prelude ADT [place] [address] Care Team Providers Care Press Maintainer Name Role Phone Brian Mon MD Primary Care Provider Encounter Details Date Type Department Care Team (Latest Contact Info) Description 01/27/2022 Travel Social History Tobacco Use Types Packs/Day [...] suspected to have Coronavirus/COVID-19? No / Unsure 01/27/2022 8:17 AM ENERGY ADMINISTRATOR documented as of this encounter Plan of Treatment Not on file documented as of this encounter Visit Diagnoses Not on filedocumented in this encounter Care Teams Press Maintainer Relationship Specialty Start Date End Date Brian Mon MD [address] [place] [phone] PCP - General Internal Medicine 07/15/19 documented as of this encounter
--- OUTSIDE RECORDS SUMMARY | 2024-02-24 20:35 | XMS_ITS | Encounter Summary ---
Author Organization [facility] Address [address] [place] [address] Care Team Providers Care Print Developer Automatic Name Role Phone Brian Mon MD Primary Care Provider Reason for Visit * Reason Onset Date Comments Blood Sugar Problem 01/19/2023 Patient call ed and stated she got her glucose test done and is worried about reoccurent yeast infections and if she could be diabetic. Patient stated she will wait for her period to end and wait for glucose results to follow up with doctor Encounter Details Date Type Department Care Team (Late st Contact Info) Description 01/19/2023 Telephone [facility] OBGYN [address] [facility] [address] [place] [address] [address] [place] [address] [place] [address] [facility] [address] [place] [address] Blood Sugar Problem (Patient called and stated she got her glucose test done and is worried about reoccurent yeast infections and if she could be diabetic. Patient stated she will wait for her period to end and wait for glucose results to follow up with doctor ) Social History Tobacco Use Types Packs/Day [...] filedocumented in this encounter Care Teams Print Developer Automatic Relationship Specialty Start Date End Date Brian Mon MD [address] [place] [phone] PCP - General Internal Medicine 07/15/19 documented as of this encounter
--- OUTSIDE RECORDS SUMMARY | 2024-02-24 20:35 | XMS_ITS | Encounter Summary ---
Author Organization [facility] Address [address] [place] [address] Care Team Providers Care Rectifier Operator Name Role Phone Brian Mon MD Primary Care Provider Reason for Visit * Reason Onset Date Comments Medication Refill 04/27/2023 Encounter Details Date Type Department Care Team (Late st Contact Info) Description 04/27/2023 Refill [facility] OBGYN [address] [facility] [id number] [place] [address] [address] [place] [address] [place] [address] [facility] [address] [address] Social History Tobacco Use Types Packs/Day Years [...] encounter Miscellaneous Notes * Telephone Encounter - [place] Delgado MD - 04/27/2023 1:25 PM CST Culture is positive for YEAST. HMALLOW MACHINE OPERATOR documented in this encounter Plan of Treatment Not on file documented as of this encounter Visit Diagnoses Not on filedocumented in this encounter Care Teams Rectifier Operator Relationship Specialty Start Date End Date Brian Mon MD [address] [place] [phone] PCP - General Internal Medicine 07/15/19 documented as of this encounter
--- OUTSIDE RECORDS SUMMARY | 2024-02-24 20:35 | XMS_ITS | Encounter Summary ---
Author Organization [facility] Address [address] [facility] [address] [place]: Epic Prelude ADT [place] [address] Care Team Providers Care Economic Development Director Name Role Phone Brian Mon MD Primary Care Provider Encounter Details Date Type Department Care Team (Latest Contact Info) Description 09/21/2020 Travel Social History Tobacco Use Types Packs/Day [...] on filedocumented in this encounter Care Teams Economic Development Director Relationship Specialty Start Date End Date Brian Mon MD [address] [place] [phone] PCP - General Internal Medicine 07/15/19 documented as of this encounter
--- OUTSIDE RECORDS SUMMARY | 2024-02-24 20:35 | XMS_ITS | Encounter Summary ---
Author Organization [facility] Address [address] [place] [address] Care Team Providers Care Color Control Supervisor Name Role Phone Brian Mon MD [...] on filedocumented in this encounter Care Teams Color Control Supervisor Relationship Specialty Start Date End Date Brian Mon MD [address] [place] [address] PCP - General Internal Medicine 07/15/19 documented as of this encounter
--- OUTSIDE RECORDS SUMMARY | 2024-02-24 20:35 | XMS_ITS | Encounter Summary ---
Author Organization [facility] Address [address] [place] [address] Care Team Providers Care Health Type Technician Name Role Phone Brian Mon MD Primary Care Provider Reason for Visit * Reason Onset Date Comments Sexually Transmitted Disease 06/18/2023 Encounter Details Date Type Department Care Team (Late st Contact Info) Description 06/18/2023 Telephone [facility] OBGYN [address], [place] [address] [place] [address] [facility] [address] [address] Sexually Transmitted Disease Social History Tobacco Use Types Packs/Day Years [...] encounter Miscellaneous Notes * Telephone Encounter - Treva Pozo RN - 06/18/2023 10:23 AM CDT Pt called describing genital herpes outbreak. Pt is requesting topical medication to help with painful sore. documented in this encounter Plan of Treatment Not on file documented as of this encounter Visit Diagnoses Not on filedocumented in this encounter Care Teams Health Type Technician Relationship Specialty Start Date End Date Brian oMn MD [address] [place] [phone] PCP - General Internal Medicine 07/15/19 documented as of this encounter
--- OUTSIDE RECORDS SUMMARY | 2024-02-24 20:35 | XMS_ITS | Encounter Summary ---
Author Organization [facility] Address [address] [place]: Epic Prelude ADT [place] [address] Care Team Providers Care Mill Manager Name Role Phone Brian Mon MD Primary Care Provider [phone] Encounter Details Date Type Department Care Team (Latest Contact Info) Description 03/15/2022 Travel Social History Tobacco Use Types Packs/Day [...] Coronavirus/COVID-19? 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
--- OUTSIDE RECORDS SUMMARY | 2024-02-24 20:35 | XMS_ITS | Encounter Summary ---
Author Organization [facility] Address [address] [place] [address] Care Team Providers Care Manager Solution Name Role Phone Brian Mon MD Primary Care Provider Reason for Visit * Reason Comments Shortness of Breath Pt To ED with c/o CO VID + on 03/05/21. States had antibody infusion on 03/07/21 and states feels worse. Pt reports ROMMEL flank pain, worsening cough that is dry, increasing SOB and moderate chest congestion. Denies fever. SOB worse with speaking. Speaking with ease in triage. HX of lupus. * Auth/Cert Specialty Diagnoses / Procedures Referred By Jud freeman Referred To Contact Emergency Medicine [facility] Emergency Dept [address] [place] [address] Referral ID Status Reason Start Date Expiration Date Visits Re quested Visits Authorized [id number] 1 1 Encounter Details Date Type Department Care Team (Late st Contact Info) Description 03/15/2021 7:53 AM THERMIT WELDING MACHINE OPERATOR - 03/15/2021 10:29 AM THERMIT WELDING MACHINE OPERATOR Emergency [facility] Emergency Department [address] [place] [address] Gabriele Mtz MD [address] [place] [place] [address] COVID-19 virus infection (Primary Dx) Discharge Disposition: Home or Self [...] have Coronavirus / COVID-19? No / Unsure 03/15/2021 7:47 AM THERMIT WELDING MACHINE OPERATOR documented as of this encounter Last Filed Vital Signs Vital Sign Reading Time Taken Comments Blood Pressure 128/73 03/15/2021 10:26 AM THERMIT WELDING MACHINE OPERATOR Pulse 75 03/15/2021 10:26 AM THERMIT WELDING MACHINE OPERATOR Temperature 36.9 ??C (98.4 ??F) 03/15/2021 10:[address] Respiratory Rate 18 03/15/2021 10:26 AM THERMIT WELDING MACHINE OPERATOR Oxygen Saturation 100% 03/15/2021 10:26 AM THERMIT WELDING MACHINE OPERATOR Inhaled Oxygen Concentration - - Weight 77.1 kg (170 lb) 03/15/2021 7:42 AM THERMIT WELDING MACHINE OPERATOR Height 160 cm (5' 3 ) 03/15/2021 7:42 AM THERMIT WELDING MACHINE OPERATOR Body Mass Index 30.11 03/15/2021 7:42 AM THERMIT WELDING MACHINE OPERATOR documented in this encounter Discharge Instructions * Attachments The following attachments cannot be sent through Care Everywhere. * Coronavirus Disease (COVID-19): General Info (Pakistani) documented in this encounter Medications at Time of Discharge Medication Sig Dispensed Refills Start Date End Date predniSONE (DELTASONE) 5 mg tablet Take 5 mg by mouth daily. omeprazole (PriLOSEC) 20 mg Capsule, Delayed Release(E.C.) Take 20 mg by mouth daily. hydroxychloroquine (PLAQUENIL) 200 mg tablet Take 200 mg by mouth daily. vit-iron fumarate-fa (DARIEN ) 28 mg iron- 800 mcg Tablet Take 1 Tablet by mouth daily. 01/27/2022 aspirin (ECOTRIN EC) 81 mg Tablet, Delayed Release (E.C.) Take 81 mg by mouth daily. 01/27/2022 valACYclovir (Valtrex) 500 mg tabletIndications:Herpes simplex vulvovaginitis Take 1 Tablet (500 mg) by mouth 2 times daily. 14 Tablet 6 10/05/2020 03/20/2023 ondansetron (Zofran) 8 mg TabletIndications:18 weeks gestation of ,Situational mixed anxiety and depressive disorder,Nausea Take 1 Tablet (8 mg) by mouth every 8 hours as needed for Nausea/Emesis. 30 Tablet 6 09/04/2020 01/27/2022 ondansetron (Zofran ODT) 8 mg Tablet, Rapid Dissolve Dissolve 1 tablet on top of tongue then swallow with saliva every 8 hours as needed for nausea or vomiting 30 Tablet 08/16/2020 01/27/2022 sertraline (ZOLOFT) 25 mg tablet Take 25 mg by mouth daily. 09/18/2022 documented as of this encounter ED Notes * Luana Macias RN - 03/15/2021 10:28 AM CST Discharge instructions given to patient, patient verbalizes understanding. Questions answered. Vital signs stable. PIV removed. Patient ambulated out of ED. MIT WELDING MACHINE OPERATOR * Luana Macias RN - 03/15/2021 8:10 AM CST Pt comes to ED with c/o body aches. COVID +03/05/21. Went to [facility] on 03/07[facility]21 and received the monoclonal antibody infusion and states that she has felt worse since. States that her kidneys and insides feel inflamed. Reports increased cough and SOB. S/p c section 2 months ago. Hx Lupus. MIT WELDING MACHINE OPERATOR * Gabriele Mtz MD - 03/15/2021 7:40 AM CST HISTORY OF PRESENT ILLNESS Carito [place], a 30 y.o. female presents to the ED with a Chief Complaint of Shortness of Breath Subjective Documented Triage Chief Complaint: Shortness of breath 8:05 AM: Carito Madison is a 30 y.o. female with a history of lupus, who presents to the Emergency Department for evaluation. 10 days ago the patient began to feel sick and tested positive for COVID-19. She went back 2 days later because she was feeling worse and received medications and a monoclonal antibody infusion. Since the antibody infusion, the patient's symptoms have been progressively worsening every day andwishes that she never got it done. The patient states she feels like her insides are swollen and that her kidneys are sore. She has been having myalgias and headaches. She also states that it feels similar to when she is about to start her period, but she gave via 2 months ago so she is unsure if she would start her period soon. The patient has noticed heart palpitations. She has been checking her oxygen levels at home with a pulse ox and states that it has been normal. She denies fever, hematuria, dysuria, cloudiness of urine. The patient states that her lupus has been in remission for a while. In the past the patient has gotten monoclonal antibody treatments for her lupus. Physician(s): Brian Mon MD History provided by: The patient Arrived by: Private vehicle Arrived from: Home General Location: Full body myalgias Severity: Moderate Onset quality: Gradual Duration: 10 days Timing: Intermittent Progression: Worsening Chronicity: New Worsened by: Monoclonal antibody infusion Associated symptoms: headaches and myalgias Associated symptoms: no fever REVIEW OF SYSTEMS Review of Systems Constitutional: Negative for fever. Cardiovascular: Positive for palpitations. Genitourinary: Negative for dysuria and hematuria. Urine not cloudy Musculoskeletal: Positive for myalgias. Neurological: Positive for headaches. All other systems reviewed and are negative. PAST MEDICAL HISTORY REVIEWED MEDICAL: Patient has a past medical history of Gume's disease, Anxiety, Connective tissue disease, Depression, Fibromyalgia, Gastroesophageal reflux in in second trimester (10/14/2020), Herpes, HTN (hypertension), hyperprolactinemia, and Lupus. She has no past medical history of Arthritis, Asthma, Atrial fibrillation, Breast cancer, CAD (coronary artery disease), CHF (congestive heart failure), Chronic hepatic failure, Clostridium difficileenterocolitis, COPD (chronic obstructive pulmonary disease), CRI (chronic renal insufficiency), CVD (cerebrovascular disease), Dementia, Diabetes mellitus, Headache, Hemorrhagic diathesis, Human immunodeficiency virus (HIV) disease, Hyperlipidemia, Hyperthyroidism, Hypothyroidism, IBS (irritable bowel syndrome), Kidney calculus, Malignant neoplasm of lung, Malignant tumor of colon, MRSA (methicill in resistant Staphylococcus aureus), Osteoporosis, Pancreatitis, Psychosis, PUD (peptic ulcer disease), PVD (peripheral vascular disease), Seizure disorder, Substance abuse, Thromboembolism, Ventricular arrhythmia, or VRE (vancomycin- resistant Enterococci). SURGICAL: Patient has a past surgical history that includes appendectomy and median nerve repair. FAMILY: Patient's family history includes Breast Cancer in her paternal grandmother. SOCIAL: reports that she quit smoking about 3 years ago. Her smoking use included cigarettes. She smoked 0.25 packs per day. She has never used smokeless tobacco. She reports previous alcohol use. She reports previous drug use. Drugs: Marijuana and Cocaine. She reports previously being sexually active and has had partner(s) who are male. No history on file. Social History Other Topics Concern ??? Not on file ALLERGIES Penicillins, Methylprednisolone, Metoclopramide hcl, Sulfamethoxazole- trimethoprim, Escitalopram, and Nitrofurantoin monohyd/m-cryst HOME MEDICATIONS Discharge Medication List as of 03/15/2021 10:17 AM CONTINUE these medications which have NOT CHANGED Details vit-iron fumarate-fa (DARIEN ) 28 mg iron- 800 mcg Tablet Take 1 Tablet by mouth daily. aspirin (ECOTRIN EC) 81 mg Tablet, Delayed Release (E.C.) Take 81 mg by mouth daily. valACYclovir (Valtrex) 500 mg tablet Take 1 Tablet (500 mg) by mouth 2 times daily., Disp-14 Tablet, R-6 predniSONE (DELTASONE) 5 mg tablet Take 5 mg by mouth daily. ondansetron (Zofran) 8 mg Tablet Take 1 Tablet (8 mg) by mouth every 8 hours as needed for Nausea/Emesis., Disp-30 Tablet, R-6 ondansetron (Zofran ODT) 8 mg Tablet, Rapid Dissolve Dissolve 1 tablet on top of tongue then swallow with saliva every 8 hours as needed for nausea or vomiting, Disp-30 Tablet, R-0 sertraline (ZOLOFT) 25 mg tablet Take 25 mg by mouth daily. omeprazole (PriLOSEC) 20 mg Capsule, Delayed Release(E.C.) Take 20 mg by mouth daily. hydroxychloroquine (PLAQUENIL) 200 mg tablet Take 200 mg by mouth daily. Objective PHYSICAL EXAM INITIAL VS BP: 108/82 (03/15/21 0742), Heart Rate: 74 bpm (01/18/22 0742), Resp: 18 (03/15/21741), Pulse: 74(03/15/21741), Temp: 98 ??F (36.7 ??C) (03/15/21741), Temp src: Oral (03/15/21741), SpO2: 100% (03/15/21741), Height: 5' 3 (160 cm) (03/15/21741), Weight: 77.1 kg (170 lb) (03/15/21741), BMI (Calculated): 30.12 (03/15/21741) No LMP recorded (lmp unknown). Physical Exam Vitals and nursing note reviewed. Constitutional: General: She is not in acute distress. HENT: Head: Normocephalic. Eyes: General: Lids are normal. Conjunctiva/sclera: Conjunctivae normal. Cardiovascular: Rate and Rhythm: Normal rate and regular rhythm. Heart sounds: No murmur heard. Pulmonary: Effort: Pulmonary effort is normal. No accessory muscle usage. Breath sounds: Normal breath sounds. No decreased breath sounds or rhonchi. Chest: Chest wall: No tenderness. Abdominal: General: Bowel sounds are normal. Palpations: Abdomen is soft. Tenderness: There is no abdominal tenderness. Musculoskeletal: General: Normal range of motion. Cervical back: Neck supple. Comments: No CVA tenderness. Skin: General: Skin is warm and dry. Capillary Refill: Capillary refill takes less than 2 seconds. Neurological: General: No focal deficit present. Mental Status: She is alert. Sensory: No sensory deficit. Psychiatric: Mood and Affect: Mood normal. DIAGNOSTICS LAB: POC URINALYSIS DIPSTICK AUTOMATED - Abnormal Result Value COLOR UA Yellow CLARITY UA Clear GLUCOSE UA Negative BILIRUBIN UA Negative KETONES UA Negative BLOOD UA Negative PH UA 6.0 PROTEIN UA 1+ (*) UROBILINOGEN UA 0.2 NITRITE UA Negative LEUKOCYTE ESTERASE UA Negative SPECIFIC GRAVITY UA POC >=1.030 D-DIMER - Normal D-DIMER QUANT <0.27 POC , URINE - Normal HCG QUAL URINE Negative SPECIFIC GRAVITY UA POC >=1.030 CBC WITH DIFFERENTIAL WBC 8.2 RBC 4.44 HEMOGLOBIN 12.8 HEMATOCRIT 40.5 MCV 91.2 MCH 28.8 MCHC 31.6 RDW 13.8 RDW-STDEV 46.1 PLATELETS 263 MPV 9.7 NEUTROPHILS 77 LYMPHOCYTES 16 MONOCYTES 6 EOSINOPHILS 1 BASOPHILS 0 IMMATURE GRANULOCYTES 0 NEUTROPHIL ABSOLUTE 6.24 LYMPHOCYTE ABSOLUTE 1.32 MONOCYTE ABSOLUTE 0.48 EOSINOPHIL ABSOLUTE 0.09 BASOPHILS ABSOLUTE 0.01 IMMATURE GRANULOCYTES ABSOLUTE 0.02 COMPREHENSIVE METABOLIC PANEL SODIUM 139 POTASSIUM 3.6 CHLORIDE 102 CO2 25 CALCIUM 9.7 BUN 11 CREATININE 0.66 GLUCOSE 83 TOTAL PROTEIN 7.1 ALBUMIN 4.4 BILIRUBIN TOTAL 0.5 ALKALINE PHOSPHATASE 76 AST 18 ALT 29 GFR >60 GFR, >60 ANION GAP 12 POC , URINE POC URINALYSIS DIPSTICK AUTOMATED RADIOLOGY: XR CHEST PA OR AP 1 VW Radiologist Impression IMPRESSION: No acute cardiopulmonary pathology. DICTATION LOCATION: [address] EKG: PROCEDURES Procedures MEDICAL DECISION MAKING AND PLAN OF CARE Upon initial evaluation, patient was seen and examined by me. Discussed with patient plan to obtainlabs, imaging for further evaluation. Patient is agreeable with this plan. 10:29 AM: I discussed the results of the diagnostic studies, my clinical impression, and the plan for further treatment with the patient. Patient will be discharged home. Recommended follow up with Dr. Mon. I explained to the patient that emergent conditions may arise and to return to the ED for new, worsening, or any persistent conditions. Patient understands and agrees with the plan. All questions and concerns addressed. The patient is stable for discharge. ED provider and ED nurse verbally discussed patient plan of care at this time. [facility] Summary Statement: 30-year-old female recent COVID diagnosis now coming in with feeling sick . Reports some back painfeels like her back swollen. Some cough some shortness of breath. Her work appears been unremarkable. No signs of active COVID. Vitals look stable. She is safe for discharge Discharge Medication List as of 03/15/2021 10:17 AM CONTINUE these medications which have NOT CHANGED Details vit-iron fumarate-fa (DARIEN ) 28 mg iron- 800 mcg Tablet Take 1 Tablet by mouth daily. aspirin (ECOTRIN EC) 81 mg Tablet, Delayed Release (E.C.) Take 81 mg by mouth daily. valACYclovir (Valtrex) 500 mg tablet Take 1 Tablet (500 mg) by mouth 2 times daily., Disp-14 Tablet, R-6 predniSONE (DELTASONE) 5 mg tablet Take 5 mg by mouth daily. ondansetron (Zofran) 8 mg Tablet Take 1 Tablet (8 mg) by mouth every 8 hours as needed for Nausea/Emesis., Disp-30 Tablet, R-6 ondansetron (Zofran ODT) 8 mg Tablet, Rapid Dissolve Dissolve 1 tablet on top of tongue then swallow with saliva every 8 hours as needed for nausea or vomiting, Disp-30 Tablet, R-0 sertraline (ZOLOFT) 25 mg tablet Take 25 mg by mouth daily. omeprazole (PriLOSEC) 20 mg Capsule, Delayed Release(E.C.) Take 20 mg by mouth daily. hydroxychloroquine (PLAQUENIL) 200 mg tablet Take 200 mg by mouth daily. LAST VS BP: 128/73 (03/15/21 1026), Heart Rate: 75 bpm (03/15/21 1026), Resp: 18 (03/15/21 1026), Pulse: 75(03/15/21 1026), Temp: 98.4 ??F (36.9 ??C) (03/15/21 1026), Temp src: Oral (03/15/21 1026), SpO2: 100 % (03/15/21 1026) CLINICAL IMPRESSION Final diagnoses: [U07.1] COVID-19 virus infection (Primary) DISPOSITION, EDUCATION AND MEDICATION RECONCILIATION Medications reconciled. See after visit summary for patient education on discharged patients. ED Disposition ED Disposition Condition User Date/Time Comment Discharge Stable Gabriele Mtz MD Tue Mar 15, 2021 10:16 AM ATTESTATION STATEMENTS This note has been prepared by Maxx Thomas acting as a scribe for Dr. Gabriele Mtz on 03/15/2021 at 2:22 PM. The scribe's documentation has been prepared under my direction and personally reviewed by me, cha, in its entirety on 03/15/21 at 3:08 PM. I confirm that the note above accurately reflects all work, treatment, procedures, and medical decision making performed by me. MIT WELDING MACHINE OPERATOR documented in this encounter Plan of Treatment Not on file documented as of this encounter Procedures Procedure Name Priority Date/Time Associated Diagnosis Comments XR CHEST PA OR AP 1 VW Stat 01/18/202 2 9:16 AM THERMIT WELDING MACHINE OPERATOR POC URINALYSIS DIPSTICK AUTOMATED Stat 03/15/2021 9:06 AM THERMIT WELDING MACHINE OPERATOR POC , URINE Stat 03/15/2021 9:05 AM THERMIT WELDING MACHINE OPERATOR D-DIMER Stat 03/15/2021 8:56 AM THERMIT WELDING MACHINE OPERATOR CBC WITH DIFFERENTIAL Stat 03/15/2021 8:21 AM THERMIT WELDING MACHINE OPERATOR COMPREHENSIVE METABOLIC PANEL Stat 03/15/2021 8:21 AM THERMIT WELDING MACHINE OPERATOR documented in this encounter Results * XR CHEST PA OR AP 1 VW (03/15/2021 9:16 AM THERMIT WELDING MACHINE OPERATOR) Anatomical Region Laterality Modality Chest Computed Radiogr aphy 03/15/2021 9:16 AM THERMIT WELDING MACHINE OPERATOR Impressions 03/15/2021 9:19 AM THERMIT WELDING MACHINE OPERATOR IMPRESSION: ?? No acute cardiopulmonary pathology. ?? DICTATION LOCATION: [address] Narrative 03/15/2021 9:19 AM THERMIT WELDING MACHINE OPERATOR AP VIEW OF THE CHEST ?? DATE: 03/15/2021 9:16 AM HISTORY: Chest pain COMPARISON: 08/10/2019 FINDINGS: ?? The cardiomediastinal silhouette is normal in size. ??The lungs are clear. No focal consolidation, pleural effusion or pneumothorax is noted. Procedure Note Patricia Garcia MD - 03/15/2021 AP VIEW OF THE CHEST DATE: 03/15/2021 9:16 AM HISTORY: Chest pain COMPARISON: 08/10/2019 FINDINGS: The cardiomediastinal silhouette is normal in size. The lungs are clear. No focal consolidation, pleural effusion or pneumothorax is noted. IMPRESSION: No acute cardiopulmonary pathology. DICTATION LOCATION: Location [address] [place] [address] Gabriele Mtz MD DIAGNOSTIC IMAGING O RDERABLES * (ABNORMAL) POC URINALYSIS DIPSTICK AUTOMATED (03/15/2021 9:06 AM THERMIT WELDING MACHINE OPERATOR) COLOR UA Yellow Pale to Dark Yellow 03/15/2021 9:06 AM [facility] [employer] [facility] CLARITY UA Clear Clear 03/15/2021 9:06 AM [facility] GLUCOSE UA Negative Negative 03/15/2021 9:06 AM [facility] BILIRUBIN UA Negative Negative 03/15/2021 9:06 AM [facility] KETONES UA Negative Negative 03/15/2021 9:06 AM [facility] BLOOD UA Negative Negative 03/15/2021 9:06 AM [facility] PH UA 6.0 5.0 - 8.0 03/15/2021 9:06 AM [facility] [employer] [facility] PROTEIN UA 1+(A) Negative 03/15/2021 9:06 AM [facility] [employer] [facility] UROBILINOGEN UA 0.2 <2.0 mg/dL 9:06 AM [facility] NITRITE UA Negative Negative 03/15/2021 9:06 AM [facility] LEUKOCYTE ESTERASE UA Negative Negative 03/15/2021 9:06 AM [facility] [employer] [facility] SPECIFIC GRAVITY UA POC >=1.030 1.000 - 1.030 03/15/2021 9:06 AM [facility] [employer] [facility] Urine 03/15/2021 9:06 AM THERMIT WELDING MACHINE OPERATOR 03/15/2021 9:10 AM [facility] - 03/15/2021 9:06 AM [facility] Recommend Urine Microcopic ([id number])and Urine Culture ([id number]) if indicated. Gabriele Mtz MD POINT OF CARE TESTIN G [facility]# [id number] [address] [place] [address] * POC , URINE (03/15/2021 9:05 AM THERMIT WELDING MACHINE OPERATOR) HCG QUAL URINE Negative Negative 03/15/2021 9:05 AM [facility] SPECIFIC GRAVITY UA POC >=1.030 1.000 - 1.030 03/15/2021 9:05 AM [facility] Urine 03/15/2021 9:05 AM THERMIT WELDING MACHINE OPERATOR 03/15/2021 9:13 AM THERMIT WELDING MACHINE OPERATOR Gabriele Mtz MD POINT OF CARE TESTIN G Performing Organization Address [facility] Co de Phone Number [facility] CLIA# [id number] [address] [place] [address] * D-DIMER (03/15/2021 8:56 AM THERMIT WELDING MACHINE OPERATOR) Pathologist [facility] D-DIMER QUANT <0.27 <0.42 ug/mL FEU 03/15/2021 9:51 AM [facility] Comment: The DIC reference range is not clearly established in uncomplicated pregnancies. ??Values above the upper limit of the reference range are common from the 31st to 40th week of . ??High negative predictive values for DVT have been reported with the current methodology, as part of a comprehensive medical examination, including risk stratification. Various clinical studies utilizing this method have shown that a result of <0.5 mcg/ml FEU excludes deep vein thrombosis and pulmonary embolism with high sensitivity when used in conjunction with a non-high clinical pre-test probability assessment. Blood Venipuncture / Unknown 03/15/2021 8:56 AM THERMIT WELDING MACHINE OPERATOR 03/15/2021 8:58 AM THERMIT WELDING MACHINE OPERATOR Gabriele Mtz MD HEMATOLOGY ORDERABLE S Performing Organization Address [facility]/ZIP Co de Phone Number [facility] CLIA# [id number] [address] [place] [address] * COMPREHENSIVE METABOLIC PANEL (03/15/2021 8:21 AM THERMIT WELDING MACHINE OPERATOR) [facility] SODIUM 139 136 - 145 mmol/L 03/15/2021 9:08 AM [facility] POTASSIUM 3.6 3.5 - 5.0 mmol/L 03/15/2021 9:08 AM [facility] CHLORIDE 102 98 - 107 mmol/L 03/15/2021 9:08 AM [facility] CO2 25 22 - 29 mmol/L 03/15/2021 9:08 AM [facility] CALCIUM 9.7 8.6 - 10.2 mg/dL 03/15/2021 9:08 AM [facility] BUN 11 6 - 20 mg/dL 03/15/2021 9:08 AM [facility] CREATININE 0.66 0.51 - 0.95 mg/dL 03/15/2021 9:08 AM [facility] GLUCOSE 83 74 - 99 mg/dL 03/15/2021 9:08 AM [facility] TOTAL PROTEIN 7.1 6.7 - 8.6 g/dL 03/15/2021 9:08 AM [facility] ALBUMIN 4.4 3.5 - 5.2 g/dL 03/15/2021 9:08 AM [facility] BILIRUBIN TOTAL 0.5 0.3 - 1.2 mg/dL 03/15/2021 9:08 AM [facility] ALKALINE PHOSPHATASE 76 35 - 104 U/L 03/15/2021 9:08 AM [facility] AST 18 <33 U/L 03/15/2021 9:08 AM [facility] ALT 29 <34 U/L 03/15/2021 9:08 AM [facility] GFR >60 mL/min/1.7 3 sq meter 03/15/2021 9:08 AM [facility] Comment: eGFR has not been validated for use in the elderly (> 70 years of age), women, patients with serious co-morbid conditions, or persons with extremes of body size or muscle mass and should also be interpreted with caution in patients with acute kidney failure, dialysis dependent patients, patients reporting exceptional dietary intake (e.g. vegetarian diet, high protein diets, creatine supplementation), and patients with severe liver disease. Based on National Kidney Disease Education Program If patient is , please refer to the GFR result. GFR, >60 mL/min/1.7 3 sq meter 03/15/2021 9:08 AM [facility] [employer] [facility] ANION GAP 12 8 - 16 mmol/L 03/15/2021 9:08 AM [facility] Blood Venipuncture / Unknown 03/15/2021 8:21 AM THERMIT WELDING MACHINE OPERATOR 03/15/2021 8:25 AM [facility] [employer] [facility] - 03/15/2021 9:08 AM [facility] Samples containing indocyanine green cause interferences on Total and/or Direct Bilirubin and must not be measured. Gabriele Mtz MD CHEMISTRY ORDERABLES [facility] [employer] [facility]# [id number] [address] [place] [address] * CBC WITH DIFFERENTIAL (03/15/2021 8:21 AM THERMIT WELDING MACHINE OPERATOR) WBC 8.2 4.0 - 9.8 K/uL 03/15/2021 8:39 AM [facility] [employer] [facility] RBC 4.44 3.90 - 4.90 M/uL 03/15/2021 8:39 AM [facility] [employer] [facility] HEMOGLOBIN 12.8 11.8 - 14.8 g/dL 03/15/2021 8:39 AM [facility] [employer] HEMATOCRIT 40.5 35.5 - 44.0 % 03/15/2021 8:39 AM [facility] [employer] MCV 91.2 82.0 - 99.0 fL 03/15/2021 8:39 AM [facility] [employer] [facility] MCH 28.8 27.2 - 32.6 pg 03/15/2021 8:39 AM [facility] [employer] MCHC 31.6 31.5 - 35.5 g/dL 03/15/2021 8:39 AM [facility] LABORATORY SERVICES - [facility] RDW 13.8 11.5 - 14.5 % 03/15/2021 8:39 AM [facility] - [facility] RDW-STDEV 46.1 37.1 - 48.7 fL 03/15/2021 8:39 AM THERMIT WELDING MACHINE OPERATOR [facility] - [facility] PLATELETS 263 140 - 350 K/uL 03/15/2021 8:39 AM [facility] - [facility] MPV 9.7 9.3 - 12.4 fL 03/15/2021 8:39 AM [facility] - [facility] NEUTROPHILS 77 % 03/15/2021 8:39 AM [facility] - [facility] LYMPHOCYTES 16 % 03/15/2021 8:39 AM [facility] - [facility] MONOCYTES 6 % 03/15/2021 8:39 AM [facility] - [facility] EOSINOPHILS 1 % 03/15/2021 8:39 AM [facility] - [facility] BASOPHILS 0 % 03/15/2021 8:39 AM [facility] - [facility] IMMATURE GRANULOCYTES 0 % 03/15/2021 8:39 AM [facility] - [facility] NEUTROPHIL ABSOLUTE 6.24 1.90 - 7.00 K/uL 03/15/2021 8:39 AM THERMIT WELDING MACHINE OPERATOR [facility] - [facility] LYMPHOCYTE ABSOLUTE 1.32 0.70 - 4.50 K/uL 03/15/2021 8:39 AM [facility] - [facility] MONOCYTE ABSOLUTE 0.48 0.10 - 1.30 K/uL 03/15/2021 8:39 AM [facility] - [facility] EOSINOPHIL ABSOLUTE 0.09 0.00 - 0.70 K/uL 03/15/2021 8:39 AM [facility] - [facility] BASOPHILS ABSOLUTE 0.01 0.00 - 0.20 K/uL 03/15/2021 8:39 AM [facility] - [facility] IMMATURE GRANULOCYTES ABSOLUTE 0.02 0.00 - 0.03 K/uL 03/15/2021 8:39 AM [facility] Blood Venipuncture / Unknown 03/15/2021 8:21 AM THERMIT WELDING MACHINE OPERATOR 03/15/2021 8:25 AM THERMIT WELDING MACHINE OPERATOR Gabriele Mtz MD HEMATOLOGY ORDERABLE S [facility] LABORATORY SERVICES [facility]# [id number] [address] [place] [address] documented in this encounter Visit Diagnoses Diagnosis COVID-19 virus infection- Primary documented in this encounter Care Teams Manager Solution Relationship Specialty Start Date End Date Brian Mon MD [address] [place] [address] PCP - General Internal Medicine 07/15/19 documented as of this encounter
--- OUTSIDE RECORDS SUMMARY | 2024-02-24 20:35 | XMS_ITS | Encounter Summary ---
Author Organization [facility] Address [address] [place] [address] Care Team Providers Care Check Writer Salesperson Name Role Phone Brian Mon MD Primary Care Provider [phone] Reason for Referral * Laboratory Services (Routine) - Open Specialty Diagnoses / Procedures Referred By Jud freeman Referred To Contact Diagnoses Yeast infection involving the vagina and surrounding area Vulvar ulcer VD (venereal disease) screening Potential exposure to STD Procedures VAGINOSIS/VAGINITIS PANEL PLUS Sheldon Deglado MD [address] [place] [address] Referral ID Status Reason Start Date Expiration Date Visits Re quested Visits Authorized [id number] Open 04/26/2023 05/26/2024 1 1 OMER TECHNICAL SERVICES MANAGER Reason for Visit * Reason Comments Yeast Infection * Laboratory Services (Routine) - Open Specialty Diagnoses / Procedures Referred By Jud freeman Referred To Contact Diagnoses Yeast infection involving the vagina and surrounding area Vulvar ulcer VD (venereal disease) screening Potential exposure to STD Procedures VAGINOSIS/VAGINITIS PANEL PLUS Sheldon Delgado MD [address] [place] [address] Referral ID Status Reason Start Date Expiration Date Visits Re quested Visits Authorized [id number] Open 04/26/2023 05/26/2024 1 1 Encounter Details Date Type Department Care Team (Late st Contact Info) Description 04/26/2023 1:20 PM CUSTOMER TECHNICAL SERVICES MANAGER Office Visit [facility] OBGYN [address] [facility] [address] [address] [facility] [address] [place] [address] [place] [address] [facility] [address] [place], [place] [id number] Yeast infection involving the vagina and surrounding area (Primary Dx); Vulvar ulcer; VD (venereal disease) screening; Potential exposure to STD; Anxiety state Social History Tobacco Use Types Packs/Day Years [...] Reading Time Taken Comments Blood Pressure 116/68 04/26/2023 1:29 PM CUSTOMER TECHNICAL SERVICES MANAGER Pulse - - Temperature - - Respiratory Rate - - Oxygen Saturation - - Inhaled Oxygen Concentration - - Weight - - Height 157.5 cm (5' 2 ) 04/26/2023 1:29 PM CUSTOMER TECHNICAL SERVICES MANAGER Body Mass Index - - documented in this encounter Progress Notes * Sheldon Delgado MD - 04/26/2023 1:31 PM CST CDU systems Exam office visit [facility] on [facility] Carito Madison 32 y.o. 1990 HISTORY Chief Complaint Patient presents with Yeast Infection HPI: 32 y.o., , No LMP recorded (lmp unknown)., This patient is going to discontinue her Zoloft secondary to diminished libido and weight gain. She did not tolerate Wellbutrin in the past. Shealso complains of potential STD exposure, vaginal irritation and ulceration. She has a history of herpes. She also complains of vaginal itching and burning without discharge. Past Medical History: Diagnosis Date Butte's disease Connective tissue disease Fibromyalgia Gastroesophageal reflux in in second trimester 10/14/2020 Herpes Hx of hyperprolactinemia Lupus Past Surgical History: Procedure Laterality Date HX APPENDECTOMY HX SECTION HX MEDIAN NERVE REPAIR Family History Problem Relation Name Age of Onset Breast Cancer Paternal Grandmother unsure age of onset Uterine Cancer Neg Hx Ovarian Cancer Neg Hx Current Outpatient Medications: busPIRone (BUSPAR) 10 mg tablet, Take 1 [...] on 04/26/2023), Disp: 10 Capsule, Rfl: 0 valACYclovir (Valtrex) 1 gram tablet, Take 1 Tablet by mouth 2 times daily., Disp: 14 Tablet, Rfl: 1 clomiPHENE citrate (CLOMID) 50 mg tablet, Take [...] Types: Cigarettes Quit date: 12/11/2017 Years since quittin.3 Smokeless tobacco: Never Vaping Use Vaping status: Never Used Substance and Sexual Activity Alcohol use: Not Currently Comment: socially Drug use: Not Currently Types: Marijuana, Cocaine Comment: one time use 12/2017 Sexual activity: Yes Partners: Male Social Determinants of Health Financial Resource Strain: Low Risk (01/01/2021) Received from [facility] Overall Financial Resource Strain (CARDIA) Difficulty of Paying Living Expenses: Not hard at all Food Insecurity: No Food Insecurity (01/01/2021) Received from [facility] Hunger Vital Sign Worried About Running Out of Food in the Last Year: Never true Ran Out of Food in the Last Year: Never true Transportation Needs: No Transportation Needs (01/01/2021) Received from [facility] PRAPARE - Transportation Lack of Transportation (Medical): No Lack of Transportation (Non-Medical): No Social Connections: Unknown (01/01/2021) Received from [facility] Social Connection and Isolation Panel [NHANES] Frequency of Communication with Friends and Family: More than three times a week Marital Status: Housing Stability: Unknown (01/01/2021) Received from [facility] Housing Stability Vital Sign Unable [...] urgency, dysuria, vasomotor symptoms, PHYSICAL EXAMINATION Vitals: 04/26/23 1329 BP: 116/68 Height: 5' 2 (1.575 m) Body mass index is 32.92 kg/m??. Head: normocephalic and atraumatic Neck: normal without enlarged thyroid, no thyroid nodules are noted. Skin: warm and dry. Cardiovascular: RRR, I do not appreciate a gallop. Lungs: Clear without crackles and wheezes Abdomen: soft, not an acute abdomen, not distended, no guarding Lower Extremities: She has no evidence of a deep venous thrombosis. Pelvic: gymnastic coach present at exam, patient had a small vaginal ulcer however grossly more consistent with a yeast infection with surrounding erythema. However herpes culture was obtained. Breast Examination: Not done Encounter Diagnoses Code Name Primary? B37.31 Yeast infection involving the vagina and surrounding area Yes N76.6 Vulvar ulcer Z11.3 VD (venereal disease) screening Z20.2 Potential exposure to STD F41.1 Anxiety state PLAN: I am going to discontinue her Zoloft and start her on BuSpar 10 mg twice daily. This medication was explained to the patient in great detail including its risk, benefits and alternatives. Herpes culture obtained. Other STD cultures obtained. Will treat patient and partner with fluconazole secondary to recurrent yeast infections, associatedwith intercourse. Patient requested testosterone injections. I asked the patient to see how she feels after discontinuing the Zoloft prior to initiating any injections. Also told patient she would need a fasting lipidprofile, CMP and testosterone level. A total of 30 minutes were spent in the examination room [...] patients expectations. This report was transcribed using [employer] speaking voice recognition system. Despite editing there may be minor grammatical and/or minor typographical errors in this button buttonhole marker due to thelimitations inherent with voice activated computer dictation. This should not adversely affect the overall integrity of the document. Please call for any questions or clarifications as needed. My medical assembler was present throughout the entire history and physical examination. OMER TECHNICAL SERVICES MANAGER documented in this encounter Plan of Treatment Not on file documented as of this encounter Procedures Procedure Name Priority Date/Time Associated Diagnosis Comments VAGINOSIS/VAGINITIS PANEL PLUS Routine 04/26/2023 2:37 PM CUSTOMER TECHNICAL SERVICES MANAGER Yeast infection involving the vagina and surrounding area Vulvar ulcer VD (venereal disease) screening Potential exposure to STD HSV BY PCR Routine 04/26/2023 2:37 PM CUSTOMER TECHNICAL SERVICES MANAGER Vulvar ulcer VD (venereal disease) screening Potential exposure to STD documented in this encounter Results * (ABNORMAL) VAGINOSIS/VAGINITIS PANEL PLUS (04/26/2023 2:37 PM CUSTOMER TECHNICAL SERVICES MANAGER) BACTERIAL VAGINOSIS NEGATIVE NEGATIVE [facility] PATTI SPECIES DETECTED(A) NOT DETECTED [facility] PATTI GLABRATA NOT DETECTED NOT DETECTED [facility] Comment: Patti species C. albicans, C. tropicalis, C. parapsilosis, and/or C. dubliniensis can be detected, but not differentiated, in the Patti spp. result. TRICHOMONAS VAGINALIS (TV), TMA NOT DETECTED NOT DETECTED [facility] C TRAC RNA NOT DETECTED NOT DETECTED [facility] N.GONORRHOEAE RNA, TMA NOT DETECTED NOT DETECTED [facility] Comment: For additional information, please refer to [email or web address]/faq/WYJ290 (This link is being provided for information/ educational purposes only.) Test Performed at: [facility] [address] [place], [place] ??[phone] Amanda Manzano MD Genital SPECIMEN FROM VAGINA / Unknown 04/26/2023 2:37 PM CUSTOMER TECHNICAL SERVICES MANAGER 04/27/2023 3:05 AM CUSTOMER TECHNICAL SERVICES MANAGER Sheldon Delgado MD MICROBIOLOGY - [facility] ORDERABLES [facility] [phone] [facility] [address] * HSV BY PCR (04/26/2023 2:37 PM CUSTOMER TECHNICAL SERVICES MANAGER) Pathologist [facility] HSV PCR SOURCE VAGINA [facility], HSV 1 DNA NOT DETECTED [facility], HSV 2 DNA NOT DETECTED [facility], Comment: REFERENCE RANGE: NOT DETECTED This test was developed and its analytical performance characteristics have been determined by [facility]. It has not been cleared or approved by FDA. This assay has been validated pursuant to the CLIA regulations and is used for clinical purposes. Test Performed at: [facility], [address] [place], [place] ??[phone] Dyan Hemphill MD,PhD,DEAN Genital SPECIMEN FROM VAGINA / Unknown 04/26/2023 2:37 PM CUSTOMER TECHNICAL SERVICES MANAGER 04/27/2023 3:05 AM CUSTOMER TECHNICAL SERVICES MANAGER Sheldon Delgado MD BODY FLUIDS AND STOO LS [facility] [phone] [facility], [address] [place] [address] documented in this encounter Visit Diagnoses Diagnosis Yeast infection involving the vagina and surrounding area- Primary Candidiasis of vulva and vagina Vulvar ulcer Ulceration of vulva, unspecified VD (venereal disease) screening Screening examination for venereal disease Potential exposure to STD Other specified personal history presenting hazards to health Anxiety state Anxiety state, unspecified documented in this encounter Care Teams Check Writer Salesperson Relationship Specialty Start Date End Date Brian Mon MD [address] [place] [address] PCP - General Internal Medicine 07/15/19 documented as of this encounter
--- OUTSIDE RECORDS SUMMARY | 2024-02-24 20:35 | XMS_ITS | Encounter Summary ---
Author Organization [facility] Address [address] [place] [address] Care Team Providers Care Wringer Operator Name Role Phone Brian Mon MD Primary Care Provider Encounter Details Date Type Department Care Team (Late st Contact Info) Description 03/13/2022 Orders Only [facility] OBGYN [address] [facility] [address] [facility] [address] [place] [address] [place] [address] [place] [address] Social History Tobacco Use Types [...] Coronavirus/COVID-19? No / Unsure 03/01/2022 1:42 PM HANDCREW FOREMAN documented as of this encounter Plan of Treatment Not on file documented as of this encounter Visit Diagnoses Not on filedocumented in this encounter Care Teams Wringer Operator Relationship Specialty Start Date End Date Brian Mon MD [address] [place] [address] PCP - General Internal Medicine 07/15/19 documented as of this encounter
--- OUTSIDE RECORDS SUMMARY | 2024-02-24 20:35 | XMS_ITS | Encounter Summary ---
Author Organization [facility] Address [address] [place] [address] Care Team Providers Care Elementary Special Education Teacher Name Role Phone Brian Mon MD Primary Care Provider Encounter Details Date Type Department Care Team (Latest Contact Info) Description 11/12/2020 9:30 AM CDT Ancillary Procedure [facility] OBGYN [address] [facility] [address] [address] [facility] [address] [place] [address] Obesity (BMI 30.0-34.9); Placenta previa in second trimester; Marginal insertion of umbilical cord affecting management of mother; Polyhydramnios affecting in third trimester Social History Tobacco Use Types Packs/Day [...] have Coronavirus / COVID-19? No / Unsure 11/12/2020 9:21 AM CDT documented as of this encounter Plan of Treatment Not on file documented as of this encounter Procedures Procedure Name Priority Date/Time Associated Diagnosis Comments US OB LTD 1 OR MORE FETUS + TV Routine 11/12/2020 9:51 AM CDT Obesity (BMI 30.0-34.9) Placenta previa in second trimester Marginal insertion of umbilical cord affecting management of mother Polyhydramnios affecting in third trimester documented in this encounter Results * US OB LTD 1 OR MORE FETUS + TV (11/12/2020 9:51 AM CDT) Anatomical Region Laterality Modality Pelvis Ultrasound Study GA Study Date Study MANE Working MANE (Source) Feta l Weight (Method) 11/12/2020 01/30/2021 (Ultrasound) Result Name Value Comments BPD (Hadlock) cm HC (Hadlock) cm AC (Hadlock) cm FL (Hadlock) cm Humerus Length cm Cerebellum cm Nuchal Fold mm HC/AC Narrative 11/12/2020 10:17 AM CDT Transvaginal and transabdominal images obtained. Indication: Placenta previa Results: The placenta is anterior. ??Placenta previa is appreciated with increased blood flow. ??The ventricular heart rate is 153 bpm. ??Cephalic presentation is appreciated on today's exam. ??The amniotic fluid index is 24.62 cm. ??The cervical length is 4.76 cm. Impression: Placenta previa, anterior Recommendation: Repeat ultrasound as clinically indicated. ??This patient is scheduled for a section. She also gets ultrasounds at [facility]. Sheldon Delgado MD US ORDERABLES documented in this encounter Visit Diagnoses Diagnosis Obesity (BMI 30.0-34.9) Obesity, unspecified Placenta previa in second trimester Marginal insertion of umbilical cord affecting management of mother Polyhydramnios affecting in third trimester documented in this encounter Care Teams Elementary Special Education Teacher Relationship Specialty Start Date End Date Brian Mon MD [address] [place] [place] [address] PCP - General Internal Medicine 07/15/19 documented as of this encounter
--- OUTSIDE RECORDS SUMMARY | 2024-02-24 20:35 | XMS_ITS | Encounter Summary ---
Author Organization [facility] Address [address] [place] [address] Care Team Providers Care Boiler Inspector Name Role Phone Brian Mon MD Primary Care Provider Reason for Visit * Reason Comments Routine Visit Encounter Details Date Type Department Care Team (Late st Contact Info) Description 09/10/2020 7:30 AM CDT visit [facility] OBGYN [address] [facility] [address] [place] [address] [address] [place] [address] [place] [address] [facility] [address], [place] [address] Primiparity, second trimester (Primary Dx) Social History Tobacco Use Types [...] Sign Reading Time Taken Comments Blood Pressure 132/70 09/10/2020 7:26 AM CDT Pulse - - Temperature - - Respiratory Rate - - Oxygen Saturation - - Inhaled Oxygen Concentration - - Weight 81.8 kg (180 lb 6.4 oz) 09/10/2020 7:26 A M CDT Height - - Body Mass Index 34.09 09/04/2020 8:38 AM CDT documented in this encounter Progress Notes * Sheldon Delgado MD - 09/10/2020 7:45 AM CDT [facility] Visit 30 y.o. S: This patient denies bleeding, loss of fluid, cramping and emesis. O: Vitals: 09/10/20 07 BP: 132/70 Fundus is normal in size. heart tones [...] followed in the maternal- medicine Center at [facility] because it is close to her house. documented in this encounter Plan of Treatment Not on file documented as of this encounter Visit Diagnoses Diagnosis Primiparity, second trimester- Primary documented in this encounter Care Teams Boiler Inspector Relationship Specialty Start Date End Date Brian Mon MD [address] [place] [address] PCP - General Internal Medicine 07/15/19 documented as of this encounter
--- OUTSIDE RECORDS SUMMARY | 2024-02-24 20:35 | XMS_ITS | Encounter Summary ---
Author Organization [facility] Address [address] [place] [address] Care Team Providers Care Industrial Engineering Analyst Name Role Phone Brian Mon MD Primary Care Provider Reason for Visit * Reason Onset Date Comments Lab Results 01/22/2023 Encounter Details Date Type Department Care Team (Late st Contact Info) Description 01/22/2023 Telephone [facility] OBGYN [address] [address] [place] [address] [facility] [address], [place] [address] Lab Results Social History Tobacco Use Types Packs/Day [...] encounter Miscellaneous Notes * Telephone Encounter - Elysia Causey - 01/22/2023 3:21 PM CST Spoke with patient and advised her she does not have diabetes. NG FINISHER * Telephone Encounter - Elysia Causey - 01/22/2023 3:21 PM CST ----- Message from Sheldon Delgado MD sent at 01/22/2023 2:58 PM AWNING FINISHER ----- Please tell her that her fasting glucose is normal. She does not have diabetes. NG FINISHER documented in this encounter Plan of Treatment Not on file documented as of this encounter Visit Diagnoses Not on filedocumented in this encounter Care Teams Industrial Engineering Analyst Relationship Specialty Start Date End Date Brian Mon MD [address] [place] [address] PCP - General Internal Medicine 07/15/19 documented as of this encounter
--- OUTSIDE RECORDS SUMMARY | 2024-02-24 20:35 | XMS_ITS | Encounter Summary ---
Author Organization [facility] Address [address] [place] [address] Care Team Providers Care Legal Billing Coordinator Name Role Phone Brian Mon MD Primary Care Provider Reason for Visit * Reason Comments Yeast Infection Encounter Details Date Type Department Care Team (Late st Contact Info) Description 03/20/2023 12:50 PM WIRE WHEELER Office Visit [facility] [address] [facility] [address] [place] [address] [address] [place] [address] [place] [address] [facility] [address] [place] [address] Encounter for gynecological examination with abnormal finding (Primary Dx); Herpes; Anovular Social History Tobacco Use Types Packs/Day Years [...] Reading Time Taken Comments Blood Pressure 118/68 03/20/2023 1:02 PM WIRE WHEELER Pulse - - Temperature - - Respiratory Rate - - Oxygen Saturation - - Inhaled Oxygen Concentration - - Weight 81.6 kg (180 lb) 03/20/2023 1:02 PM WIRE WHEELER Height 157.5 cm (5' 2 ) 03/20/2023 1:02 PM WIRE WHEELER Body Mass Index 32.92 03/20/2023 1:02 PM WIRE WHEELER documented in this encounter Progress Notes * Sheldon Delgado MD - 03/20/2023 1:16 PM CST CDU systems Exam office visit [facility] Carito Madison 32 y.o. 1990 HISTORY Chief Complaint Patient presents with Yeast Infection HPI: 32 y.o., , Patient's last menstrual period was 03/16/2023 (exact date)., Patient wants to get . Last time she got easily on Clomid. Past Medical History: Diagnosis Date Nolan's disease Connective tissue disease Fibromyalgia Gastroesophageal reflux in in second trimester 10/14/2020 Herpes Hx of hyperprolactinemia Lupus Past Surgical History: Procedure Laterality Date HX APPENDECTOMY HX SECTION HX MEDIAN NERVE REPAIR Family History Problem Relation Name Age of Onset Breast Cancer Paternal Grandmother unsure age of onset Uterine Cancer Neg Hx Ovarian Cancer Neg Hx Current Outpatient Medications: valACYclovir (Valtrex) 1 gram tablet, Take 1 Tablet by mouth 2 times daily., Disp: 14 Tablet, Rfl: 1 clomiPHENE citrate (CLOMID) 50 mg tablet, Take 3 tablets daily on days 5 through 9., Disp: 15 Tablet, Rfl: 5 sertraline (ZOLOFT) 25 mg tablet, Take 1 tablet by mouth once daily, Disp: 90 Tablet, Rfl: 1 [DISCONTINUED] valACYclovir (Valtrex) 500 mg tablet, Take 1 [...] Types: Cigarettes Quit date: 12/11/2017 Years since quittin.2 Smokeless tobacco: Never Vaping Use Vaping status: Never Used Substance and Sexual Activity Alcohol use: Not Currently Comment: socially Drug use: Not Currently Types: Marijuana, Cocaine Comment: one time use 12/2017 Sexual activity: Yes Partners: Male Social Determinants of Health Financial Resource Strain: Low Risk (01/01/2021) Received from [facility] Overall Financial Resource Strain (CARDIA) Difficulty of Paying Living Expenses: Not hard at all Food Insecurity: No Food Insecurity (01/01/2021) Received from [facility] Hunger Vital Sign Worried About Running Out of Food in the Last Year: Never true Ran Out of Food in the Last Year: Never true Transportation Needs: No Transportation Needs (01/01/2021) Received from [facility] PRAPARE - Transportation Lack of Transportation (Medical): No Lack of Transportation (Non-Medical): No Social Connections: Unknown (01/01/2021) Received from [facility] Social Connection and Isolation Panel [NHANES] Frequency of Communication with Friends and Family: More than three times a week Marital Status: Housing Stability: Unknown (01/01/2021) Received from [facility] Housing Stability Vital Sign Unable [...] urgency, dysuria, vasomotor symptoms, PHYSICAL EXAMINATION Vitals: 03/20/23 1302 BP: 118/68 Weight: 81.6 kg (180 lb) Height: 5' 2 (1.575 m) Body [...] evidence of a deep venous thrombosis. Pelvic: bacteriology professor present at exam, the vulva is without lesions, the clitoris is within normal limits without irritation or erythema, the perineal body is intact, the vagina is without masses or discharge, normal vaginal rugae are noted. Both adnexa palpate within normal limits. The anus is normal. The clitoral prepuce is normal. The labia minora are normal and intact. The labia majora is normal bilaterally. The cervix and uterus are both normal, and without tenderness. Breast Examination: Encounter Diagnoses Code Name Primary? Z01.411 Encounter for gynecological examination with abnormal finding Yes B00.9 Herpes N97.0 Anovular PLAN: I prescribed her Clomid with instructions and precautions. We discussed this medication in great detail including its risk, directions, benefits and alternatives. Papanicolaou test was obtained. Patient declined chlamydia and gonorrhea testing. She is currently having a herpetic outbreak. Herurinalysis is negative. I am going to treat her herpetic outbreak with Valtrex 1000 mg twice daily for 7 days. Instructions and precautions given. My medical lab director was present throughout the entire history and physical examination. A total of 20 minutes were spent [...] patients expectations. This report was transcribed using Gemfire speaking voice recognition system. Despite editing there may be minor grammatical and/or minor typographical errors in this qualitative field coordinator due to thelimitations inherent with voice activated computer dictation. This should not adversely affect the overall integrity of the document. Please call for any questions or clarifications as needed.2 WHEELER documented in this encounter Plan of Treatment Not on file documented as of this encounter Procedures Procedure Name Priority Date/Time Associated Diagnosis Comments CERV/VAG CYTO AGE BASED SCREEN PAP Routine 03/20/2023 1:28 PM WIRE WHEELER Encounter for gynecological examination with abnormal finding documented in this encounter Results * CERV/VAG CYTO AGE BASED SCREEN PAP (03/20/2023 1:28 PM WIRE WHEELER) COMMENT (PAP): [facility] Comment: This order for age-based cervical cancer and STI screening follows ACOG guidelines(PB 168, 140, VRQ496). See individual assays for performing site location. CLINICAL INFORMATION [facility] Comment:None given LAST MENSTRUAL PERIOD [facility] Comment:03/16/2023 PREV PAP: [facility] Comment:NONE GIVEN PREV BX: [facility] Comment:NONE GIVEN SOURCE [facility] Comment:Endocervix ADEQUACY: [facility] Comment: Satisfactory for evaluation. Endocervical/transformation zone component present. PAP INTERP [facility] Comment: Cytology Results: Negative for intraepithelial lesion or malignancy. COMMENT (PAP TEST) [facility] [place] Comment: This Pap test has been evaluated with computer assisted technology. SUPERVISORY IT SPECIALIST: Cailin Reece- Sidra Comment: JASON CT(ASCP) CT screening location: [place] [address] [address] [place] [address] RE[address] SUPERVISORY IT SPECIALIST: Tremayne WozityouKary Valente Comment: MONTSE CT(ASCP) CT Screening Location: [place] [address] Administration [place] [address] [address]PLAN[address] NOTE Que [facility] Doc Valente Comment: EXPLANATORY NOTE: The Pap is [...] information. HPV E6/E7 Not Detected Not Detected [facility] Comment: Methodology: Electromedical Equipment Repairer-Mediated Amplification This assay detects E6/E7 viral messenger RNA (mRNA) from 14 high-risk HPV types (16,18,31,33,35,39,45,51,52,56,58,59,66,68). Cervical sources are required for HPV testing. If a vaginal source from a patient who has had a total hysterectomy with removal of cervix was submitted, please contact the testing laboratory for alternative testing options. For additional information, please refer to http://education.SuperTruper/faq/ZNR791f3 (This link if provided for information/ educational purposes only.) Test Performed at: [facility] [address] [place], [place] ??[phone] Amanda Manzano MD SL Genital SWAB OF ENDOCERVIX / Unknown 03/20/2023 1:28 PM WIRE WHEELER 03/21/2023 5:37 AM WIRE WHEELER Sheldon Delgado MD PATHOLOGY/CYTOLOGY O RDERABLES [facility] [phone] [facility] [address] [place] [address] documented in this encounter Visit Diagnoses Diagnosis Encounter for gynecological examination with abnormal finding- Primary Routine gynecological examination Herpes Herpes simplex without mention of complication Anovular Female infertility associated with anovulation documented in this encounter Care Teams Legal Billing Coordinator Relationship Specialty Start Date End Date Brian Mon MD [address] [place] [address] PCP - General Internal Medicine 07/15/19 documented as of this encounter
--- OUTSIDE RECORDS SUMMARY | 2024-02-24 20:35 | XMS_ITS | Encounter Summary ---
Author Organization [facility] Address [address] [place] [address] Care Team Providers Care Utility Forester Name Role Phone Brian Mon MD Primary Care Provider Reason for Visit * Reason Onset Date Comments Reschedule Appointment 06/08/2023 Encounter Details Date Type Department Care Team (Late st Contact Info) Description 06/08/2023 Telephone [facility] Plastic Surgery at the [facility] [address] [place] [id number] Dilan Cox MD [address] [facility] [address] [place], [place] [id number] Reschedule Appointment Social History Tobacco Use Types Packs/Day [...] encounter Miscellaneous Notes * Telephone Encounter - Sue Painter - 06/08/2023 10:30 AM CDT Patient canceled her consult and wanted to r/s called patient to r/s no answer left VM to call backto r/s documented in this encounter Plan of Treatment Not on file documented as of this encounter Visit Diagnoses Not on filedocumented in this encounter Care Teams Utility Forester Relationship Specialty Start Date End Date Brian Mon MD [address] [place] [address] PCP - General Internal Medicine 07/15/19 documented as of this encounter
--- OUTSIDE RECORDS SUMMARY | 2024-02-24 20:35 | XMS_ITS | Encounter Summary ---
Author Organization [facility] Address [address] [place]: Epic Prelude ADT [place] [address] Care Team Providers Care Operations Accountant Name Role Phone Brian Mon MD Primary Care Provider [phone] Encounter Details Date Type Department Care Team (Latest Contact Info) Description 03/01/2022 Travel Social History Tobacco Use Types Packs/Day [...] Coronavirus/COVID-19? No / Unsure 03/01/2022 1:42 PM DEV TECHNICAL MGR documented as of this encounter Plan of Treatment Not on file documented as of this encounter Visit Diagnoses Not on filedocumented in this encounter Care Teams Operations Accountant Relationship Specialty Start Date End Date Brian Mon MD [address] [place] [address] PCP - General Internal Medicine 07/15/19 documented as of this encounter
--- OUTSIDE RECORDS SUMMARY | 2024-02-24 20:35 | XMS_ITS | Encounter Summary ---
Author Organization [facility] Address [address] [place] [address] Care Team Providers Care Cow Puncher Name Role Phone Brian Mon MD Primary Care Provider Reason for Visit * Auth/Cert Specialty Diagnoses / Procedures Referred By Contac t Referred To Contact Obstetrics Rust Ob Triage [address] [place] [address] Referral ID Status Reason Start Date Expiration Date Visits Re quested Visits Authorized [id number] 1 1 Encounter Details Date Type Department Care Team (Latest Contact Info) Description 10/14/2020 3:44 PM CDT - 10/14/2020 5:40 PM CDT Hospital Encounter [facility] OB Triage [address] [place] [address] Esau Belcher MD [address] [address] Gastroesophageal reflux in in second trimester Discharge Disposition: Home or Self Care Social [...] Sign Reading Time Taken Comments Blood Pressure 117/67 10/14/2020 3:52 PM CDT Pulse 102 10/14/2020 3:52 PM CDT Temperature 36.6 ??C (97.8 ??F) 10/14/2020 3:52 PM CD T Respiratory Rate 18 10/14/2020 3:52 PM CDT Oxygen Saturation - - Inhaled Oxygen Concentration - - Weight 82.8 kg (182 lb 8 oz) 10/14/2020 3:53 PM CDT Height 160 cm (5' 3 ) 10/14/2020 3:53 PM CDT Body Mass Index 32.33 10/14/2020 3:53 PM CDT documented in this encounter Discharge Instructions * Discharge Instructions* Elise Galarza RN - 10/14/2020 5:37 PM CDT Follow-up: Follow-up with your doctor at your next scheduled appointment. Prescriptions given? Yes: Flexeril Return to Labor and Delivery or notify your physician regarding: ?? Vaginal Bleeding: A small amount of spotting after sexual intercourse or vaginal examination is considered normal. Bloody show is a pink-tinged or blood- streaked mucousy discharge that occurs nearthe onset of labor. If bleeding is heavy enough to require you to wear a pad, saturates your underpants or is accompanied by abdominal pain or cramping, notify your doctor or come to Labor and Delivery. Please notify staff of your placenta previa. ?? Decreased Movement: If you think your baby is less active than usual, drink a glass of juice and lie down on your side. Count the number of kicks that you feel during a one-hour period. If your baby is still less active than usual, notify your doctor or come to Labor and Delivery. ?? General: If you experience any of the following signs/symptoms, notify your physician or come toLabor and Delivery: Headache, blurred vision, severe indigestion, abdominal pain, or increased swelling of face, hands, or feet. Additional Instructions: Drink plenty of water Activity: Your activity level is no restrictions and no smoking. If you smoke you are advised to quit. Ask your health care provider for advice if you need assistance to stop smoking. Avoid second-hand smoke exposure and do not let people smoke in your home. Diet: Your diet is regular * Attachments The following attachments cannot be sent through Care Everywhere. * cyclobenzaprine ([place]) documented in this encounter Medications at Time of Discharge Medication Sig Dispensed Refills Start Date End Date predniSONE (DELTASONE) 5 mg tablet Take 5 mg by mouth daily. omeprazole (PriLOSEC) 20 mg Capsule, Delayed Release(E.C.) Take 20 mg by mouth daily. hydroxychloroquine (PLAQUENIL) 200 mg tablet Take 200 mg by mouth daily. cyclobenzaprine (FLEXERIL) 10 mg tablet Take 1 Tablet (10 mg) by mouth 3 times daily as needed for Spasm. 24 Tablet 10/14/2020 10/17/2020 vit-iron fumarate-fa (DARIEN ) 28 mg iron- [...] daily. 09/18/2022 documented as of this encounter Progress Notes * Elise Galarza RN - 10/14/2020 5:41 PM CDT Order received for patient discharge. Prescription for Flexeril given to patient by HARPREET. RN to bedside with discharge paperwork to find patient had already left. Instructions for follow-up had previously been discussed with patient. * Elise Galarza RN - 10/14/2020 5:25 PM CDT Patient reports heartburn has significantly decreased since her IV pepcid. She feels comfortable leaving with prescription for Flexeril for lower abdominal/back pain. Discussed with A HARPREET Garcia. documented in this encounter H&P Notes * Maryam Garcia CNM - 10/14/2020 4:20 PM CDT house decorator History and Physical CC: abd pain with reflux HPI: Carito Madison is a 30 y.o. @ 24w4d, who presents from home with report of having abd pain and severe acid reflux. Pain started in back last night and has moved to right inguinal area. She has been vomiting due to the reflux. She declines Flexeril or Tylenol now. She has been takingtylenol since her COVID shot 48 hours ago. Contractions: none. Vaginal bleeding: None. Leakage of fluid: denies. States normal movement. OB Provider: Esau Belcher MD (Dr. Delgado does not have priviledges here ) OB Complications: Placenta Previa -Followed by [facility]FM at [facility] Hx of g Herpes Lupus -Hydroxychloroquine -bASA Gume's -Prednisone ROS: Comprehensive ROS done. Denies heachache, visual disturbances or epigastric pain. All others neg. OB History: OB History Para Term AB Living 3 0 2 0 SAB TAB Ectopic Multiple Live Births 2 # Outcome Date GA Lbr Rojas/2nd Weight Sex Delivery Anes PTL Lv 3 Current 2 SAB SAB 1 SAB SAB PMHx: Past Medical History: Diagnosis Date ??? Gume's disease ??? Anxiety ??? Connective tissue disease ??? Depression ??? Fibromyalgia ??? Herpes ??? HTN (hypertension) ??? Hx of hyperprolactinemia ??? Lupus PSHx: Past Surgical History: Procedure Laterality Date ??? HX APPENDECTOMY ??? HX MEDIAN NERVE REPAIR PSocHX: Social History Tobacco Use ??? Smoking status: Former Smoker Packs/day: 0.25 Types: Cigarettes Quit date: 12/11/2017 Years since quittin.8 ??? Smokeless tobacco: Never Used Vaping Use ??? Vaping Use: Never used Substance Use Topics ??? Alcohol use: Not Currently Comment: socially ??? Drug use: Not Currently Types: Marijuana, Cocaine Comment: one time use 12/2017 Medications: No current facility-administered medications on file prior to encounter. Current Outpatient Medications on File Prior to Encounter Medication Sig Dispense Refill ??? vit-iron fumarate-fa (DARIEN ) 28 mg iron- 800 mcg Tablet Take 1 Tablet by mouth daily. ??? aspirin (ECOTRIN EC) 81 mg Tablet, Delayed Release (E.C.) Take 81 mg by mouth daily. ??? predniSONE (DELTASONE) 5 mg tablet Take 5 mg by mouth daily. ??? sertraline (ZOLOFT) 25 mg tablet Take 25 mg by mouth daily. ??? hydroxychloroquine (PLAQUENIL) 200 mg tablet Take 200 mg by mouth daily. ??? valACYclovir (Valtrex) 500 mg tablet Take 1 Tablet (500 mg) by mouth 2 times daily. 14 Tablet 6 ??? ondansetron (Zofran) 8 mg Tablet Take 1 Tablet (8 mg) by mouth every 8 hours as needed for Nausea/Emesis. 30 Tablet 6 ??? ondansetron (Zofran ODT) 8 mg Tablet, Rapid Dissolve Dissolve 1 tablet on top of tongue then swallow with saliva every 8 hours as needed for nausea or vomiting 30 Tablet 0 ??? progesterone micronized (Prometrium) 200 mg Capsule Take 1 Capsule (200 mg) by mouth daily. 30 Capsule 4 ??? omeprazole (PriLOSEC) 20 mg Capsule, Delayed Release(E.C.) Take 20 mg by mouth daily. Allergies Allergen Reactions ??? Penicillins Hives and Rash ??? Methylprednisolone Syncope ??? Sulfamethoxazole-Trimethoprim Other (See Comments) Cannot take bactrim because of lupus ??? Escitalopram Rash Caused seizures Caused seizures ??? Nitrofurantoin Monohyd/M-Cryst Itching Physical Exam: Vitals: 10/14/20 1552 10/14/20 1553 BP: 117/67 Patient Position (BP): Sitting Pulse: (!) 102 Resp: 18 Temp: 97.8 ??F (36.6 ??C) TempSrc: Oral Weight: 82.8 kg (182 lb 8 oz) Height: 5' 3 (1.6 m) General: Well-developed, well-nourished female in NAD HEENT: Normocephalic, atraumatic. Mucus membranes moist Heart: acyanotic Lungs: unlabored Abdomen: soft, gravid, NT Extremities: No clubbing or cyanosis. Negative edema. No calf tenderness. Wt Readings from Last 3 Encounters: 10/14/20 82.8 kg (182 lb 8 oz) 09/21/20 81.2 kg (179 lb) 09/10/20 81.8 kg (180 lb 6.4 oz) FHR: Non-Stress Test Indication: abdominal pain Gestational Age: 24w4d Baseline: 140 bpm Variability: moderate Accelerations: present Decelerations: Absent TOCO: CTXs occasional Interpretation: reassuring for EGA Labs: Results for orders placed or performed during the hospital encounter of 10/14/20 (from the past 24 hour(s)) COMPREHENSIVE METABOLIC PANEL Result Value Ref Range SODIUM 136 136 - 145 mmol/L POTASSIUM 3.8 3.5 - 5.0 mmol/L CHLORIDE 103 98 - 107 mmol/L CO2 18 (L) 22 - 29 mmol/L CALCIUM 9.0 8.6 - 10.2 mg/dL BUN 5 (L) 6 - 20 mg/dL CREATININE 0.38 (L) 0.51 - 0.95 mg/dL GLUCOSE 99 74 - 99 mg/dL TOTAL PROTEIN 6.7 6.7 - 8.6 g/dL ALBUMIN 3.6 3.5 - 5.2 g/dL BILIRUBIN TOTAL <0.2 (L) 0.3 - 1.2 mg/dL ALKALINE PHOSPHATASE 69 35 - 104 U/L AST 22 <33 U/L ALT 18 <34 U/L GFR >60 mL/min/1.73 sq meter GFR, >60 mL/min/1.73 sq meter ANION GAP 15 8 - 16 mmol/L CBC WITH DIFFERENTIAL Result Value Ref Range WBC 8.6 4.0 - 9.8 K/uL RBC 3.46 (L) 3.90 - 4.90 M/uL HEMOGLOBIN 10.1 (L) 11.8 - 14.8 g/dL HEMATOCRIT 30.7 (L) 35.5 - 44.0 % MCV 88.7 82.0 - 99.0 fL MCH 29.2 27.2 - 32.6 pg MCHC 32.9 31.5 - 35.5 g/dL RDW 14.1 11.5 - 14.5 % RDW-STDEV 45.5 37.1 - 48.7 fL PLATELETS 292 140 - 350 K/uL MPV 9.9 9.3 - 12.4 fL NEUTROPHILS 86 % LYMPHOCYTES 9 % MONOCYTES 4 % EOSINOPHILS 0 % BASOPHILS 0 % IMMATURE GRANULOCYTES 0 % NEUTROPHIL ABSOLUTE 7.38 (H) 1.90 - 7.00 K/uL LYMPHOCYTE ABSOLUTE 0.73 0.70 - 4.50 K/uL MONOCYTE ABSOLUTE 0.38 0.10 - 1.30 K/uL EOSINOPHIL ABSOLUTE 0.03 0.00 - 0.70 K/uL BASOPHILS ABSOLUTE 0.02 0.00 - 0.20 K/uL IMMATURE GRANULOCYTES ABSOLUTE 0.03 0.00 - 0.03 K/uL URINALYSIS WITH REFLEX MICROSCOPIC Result Value Ref Range COLOR UA Yellow Pale to Dark Yellow CLARITY UA Clear Clear SPECIFIC GRAVITY UA 1.015 1.003 - 1.035 PH UA 7.0 5.0 - 8.0 LEUKOCYTE ESTERASE UA Negative Negative NITRITE UA Negative Negative PROTEIN UA Negative Negative GLUCOSE UA Negative Negative KETONES UA Negative Negative UROBILINOGEN UA Normal <2.0 mg/dL BILIRUBIN UA Negative Negative BLOOD UA Negative Negative AMYLASE Result Value Ref Range AMYLASE 61 28 - 100 U/L LIPASE Result Value Ref Range LIPASE 44 13 - 60 U/L Labs Reviewed Lab Results Component Value Date/Time WBC 8.6 10/14/2020 04:37 PM HGB 10.1 (L) 10/14/2020 04:37 PM HCT 30.7 (L) 10/14/2020 04:37 PM PLT 292 10/14/2020 04:37 PM MCV 88.7 10/14/2020 04:37 PM Lab Results Component Value Date/Time NA 136 10/14/2020 04:37 PM K 3.8 10/14/2020 04:37 PM CL 103 10/14/2020 04:37 PM CO2 18 (L) 10/14/2020 04:37 PM CA 9.0 10/14/2020 04:37 PM BUN 5 (L) 10/14/2020 04:37 PM CREAT 0.38 (L) 10/14/2020 04:37 PM GLUCOSE 99 10/14/2020 04:37 PM TOTALPROTEIN 6.7 10/14/2020 04:37 PM ALBUMIN 3.6 10/14/2020 04:37 PM BILITOTAL <0.2 (L) 10/14/2020 04:37 PM ALKPHOS 69 10/14/2020 04:37 PM AST 22 10/14/2020 04:37 PM ALT 18 10/14/2020 04:37 PM ANIONGAP 15 10/14/2020 04:37 PM Lab Results Component Value Date/Time RUBELLAIGG 4.55 08/17/2020 11:33 AM Lab Results Component Value Date/Time HIV1X2 NON-REACTIVE 08/17/2020 11:48 AM Lab Results Component Value Date/Time HEPBSAG NON-REACTIVE 08/17/2020 11:46 AM Lab Results Component Value Date/Time ABOGROUP A 08/17/2020 11:27 AM RHTYPE RH(D) POSITIVE 08/17/2020 11:27 AM No results found for: PROTEINUR Lab Results Component Value Date/Time CREAT 0.38 (L) 10/14/2020 04:37 PM GFR >60 10/14/2020 04:37 PM Lab Results Component Value Date/Time RPR NON-REACTIVE 08/17/2020 11:50 AM Radiology Results for orders placed in visit on 06/29/20 US OB TRANSVAGINAL Assessment/ 30 y.o. IUP @ 24w4d 1. Chronic Reflux -2/2 meds: prednisone and tylenol -s/p Pepcid: feeling much better -Labs: WNL 2. status reassuring: FHR tracing AGA 3. Musculoskeletal pain -d/c to home with flexeril Plan: 1. Dr. Fortune updated 2. D/C to home with precautions for which to return 3. Pepcid BID 4. Rx for flexeril prn for pain 5. F/U as scheduled 6. Px informed, vu and agrees with plan of care Maryam Garcia CNM documented in this encounter Plan of Treatment Not on file documented as of this encounter Procedures Procedure Name Priority Date/Time Associated Diagnosis Comments CBC WITH DIFFERENTIAL Stat 10/14/2020 4:37 PM CDT URINALYSIS W/REFLEX MICROSCOPIC Stat 10/14/2020 4:37 PM CDT LIPASE Stat 10/14/2020 4:37 PM CDT AMYLASE Stat 10/14/2020 4:37 PM CDT COMPREHENSIVE METABOLIC PANEL Stat 10/14/2020 4:37 PM CDT documented in this encounter Results * LIPASE (10/14/2020 4:37 PM CDT) LIPASE 44 13 - 60 U/L 10/14/2020 5:20 PM CDT [facility] Blood Venipuncture / Unknown 10/14/2020 4:37 PM CDT 10/14/2020 4:45 PM CDT Maryam Garcia CNM CHEMISTRY ORDERABLES [facility] CLIA# [id number] [address] [place] [address] * AMYLASE (10/14/2020 4:37 PM CDT) AMYLASE 61 28 - 100 U/L 10/14/2020 5:20 PM CDT [facility] Blood Venipuncture / Unknown 10/14/2020 4:37 PM CDT 10/14/2020 4:45 PM CDT Maryam Garcia CNM CHEMISTRY ORDERABLES [facility] SERVICES - [facility] CLND# [id number] 5 [facility] [address] [place] [address] * URINALYSIS WITH REFLEX MICROSCOPIC (10/14/2020 4:37 PM CDT) COLOR UA Yellow Pale to Dark Yellow 10/14/2020 5:02 PM CDT [facility] - [facility] CLARITY UA Clear Clear 10/14/2020 5:02 PM CDT [facility] - [facility] SPECIFIC GRAVITY UA 1.015 1.003 - 1.035 10/14/2020 5:[address] [facility] - . [facility] PH UA 7.0 5.0 - 8.0 10/14/2020 5:02 PM CDT [facility] - [facility] LEUKOCYTE ESTERASE UA Negative Negative 10/14/2020 5:02 PM CDT [facility] - [facility] NITRITE UA Negative Negative 10/14/2020 5:02 PM CDT [facility] - [facility] PROTEIN UA Negative Negative 10/14/2020 5:[address] [facility] - . [facility] GLUCOSE UA Negative Negative 10/14/2020 5:[address] [facility] - . [facility] KETONES UA Negative Negative 10/14/2020 5:02 PM CDT [facility] - . [facility] UROBILINOGEN UA Normal <2.0 mg/dL 5:02 PM CDT [facility] - [facility] BILIRUBIN UA Negative Negative 10/14/2020 5:02 PM CDT [facility] - . [facility] BLOOD UA Negative Negative 10/14/2020 5:02 PM CDT [facility] - [facility] Urine URINE SPECIMEN OBTAINED BY CLEAN CATCH PROCEDURE / Unknown Collection / Unknown 10/14/2020 4:37 PM CDT 10/14/2020 4:45 PM CDT Maryam Garcia CNM URINE ORDERABLES [facility] CLIA# [id number] [address] [place] [address] * (ABNORMAL) CBC WITH DIFFERENTIAL (10/14/2020 4:37 PM CDT) WBC 8.6 4.0 - 9.8 K/uL 10/14/2020 4:52 PM CDT [facility] RBC 3.46(L) 3.90 - 4.90 M/uL 10/14/2020 4:52 PM CDT [facility] - [facility] HEMOGLOBIN 10.1(L) 11.8 - 14.8 g/dL 10/14/2020 4:52 PM CDT [facility] - . [facility] HEMATOCRIT 30.7(L) 35.5 - 44.0 % 10/14/2020 4:52 PM CDT [facility] - [facility] MCV 88.7 82.0 - 99.0 fL 10/14/2020 4:52 PM CDT [facility] - . [facility] MCH 29.2 27.2 - 32.6 pg 10/14/2020 4:52 PM CDT [facility] - . [facility] MCHC 32.9 31.5 - 35.5 g/dL 10/14/2020 4:52 PM CDT [facility] - [facility] RDW 14.1 11.5 - 14.5 % 10/14/2020 4:52 PM CDT [facility] - [facility] RDW-STDEV 45.5 37.1 - 48.7 fL 10/14/2020 4:52 PM CDT [facility] - [facility] PLATELETS 292 140 - 350 K/uL 10/14/2020 4:52 PM CDT [facility] - [facility] MPV 9.9 9.3 - 12.4 fL 10/14/2020 4:52 PM CDT [facility] - [facility] NEUTROPHILS 86 % 10/14/2020 4:52 PM CDT [facility] - [facility] LYMPHOCYTES 9 % 10/14/2020 4:52 PM CDT [facility] - [facility] MONOCYTES 4 % 10/14/2020 4:52 PM CDT [facility] EOSINOPHILS 0 % 10/14/2020 4:52 PM CDT [facility] BASOPHILS 0 % 10/14/2020 4:52 PM CDT [facility] IMMATURE GRANULOCYTES 0 % 10/14/2020 4:[address] [facility] - [facility] NEUTROPHIL ABSOLUTE 7.38(H) 1.90 - 7.00 K/uL 10/14/2020 4:52 PM CDT [facility] - [facility] LYMPHOCYTE ABSOLUTE 0.73 0.70 - 4.50 K/uL 10/14/2020 4:52 PM CDT [facility] - [facility] MONOCYTE ABSOLUTE 0.38 0.10 - 1.30 K/uL 10/14/2020 4:52 PM CDT [facility] - [facility] EOSINOPHIL ABSOLUTE 0.03 0.00 - 0.70 K/uL 10/14/2020 4:52 PM CDT [facility] - [facility] BASOPHILS ABSOLUTE 0.02 0.00 - 0.20 K/uL 10/14/2020 4:52 PM CDT [facility] - [facility] IMMATURE GRANULOCYTES ABSOLUTE 0.03 0.00 - 0.03 K/uL 10/14/2020 4:52 PM CDT [facility] - [facility] Blood Venipuncture / Unknown 10/14/2020 4:37 PM CDT 10/14/2020 4:45 PM CDT Maryam Garcia [facility] HEMATOLOGY ORDERABLE [facility] - [facility] CLIA# [id number] [address] [facility] [place] [address] * (ABNORMAL) COMPREHENSIVE METABOLIC PANEL (10/14/2020 4:37 PM CDT) Pathologist [facility] SODIUM 136 136 - 145 mmol/L 10/14/2020 5:[address] [facility] - [facility] POTASSIUM 3.8 3.5 - 5.0 mmol/L 10/14/2020 5:21 PM [facility] - . [facility] CHLORIDE 103 98 - 107 mmol/L 10/14/2020 5:21 PM T [facility] - . [facility] CO2 18(L) 22 - 29 mmol/L 10/14/2020 5:21 PM T [facility] - . [facility] CALCIUM 9.0 8.6 - 10.2 mg/dL 10/14/2020 5:21 PM [facility] - . [facility] BUN 5(L) 6 - 20 mg/dL 10/14/2020 5:21 PM [facility] - . [facility] CREATININE 0.38(L) 0.51 - 0.95 mg/dL 10/14/2020 5:21 PM [facility] - . [facility] GLUCOSE 99 74 - 99 mg/dL 10/14/2020 5:21 PM [facility] TOTAL PROTEIN 6.7 6.7 - 8.6 g/dL 10/14/2020 5:21 PM [facility] LAB[facility]ORY [facility] ALBUMIN 3.6 3.5 - 5.2 g/dL 10/14/2020 5:21 PM [facility] SERVICES - . [facility] BILIRUBIN TOTAL <0.2(L) 0.3 - 1.2 mg/dL 10/14/2020 5:21 PM [facility] LABORATORY [facility] ALKALINE PHOSPHATASE 69 35 - 104 U/L 10/14/2020 5:21 PM [facility] AST 22 <33 U/L 10/14/2020 5:21 PM [facility] Comment:Hemolysis present. R esult may be falsely elevated. ALT 18 <34 U/L 10/14/2020 5:21 PM [facility] LABORATORY SERVICES [facility] GFR >60 mL/min/1.7 3 sq meter 10/14/2020 5:21 PM [facility] Comment: eGFR has not been validated for [...] result. GFR, >60 mL/min/1.7 3 sq meter 10/14/2020 5:[address] [facility] ANION GAP 15 8 - 16 mmol/L 10/14/2020 5:[address] [facility] Blood Venipuncture / Unknown 10/14/2020 4:37 PM CDT 10/14/2020 4:[address] [facility] - 10/14/2020 5:21 PM CDT Samples containing indocyanine green cause interferences on Total and/or Direct Bilirubin and must not be measured. Maryam Garcia [facility] CHEMISTRY ORDERABLES [facility] LAB[facility]ORY [facility]# [id number] [address] [facility] [address] documented in this encounter Visit Diagnoses Diagnosis Gastroesophageal reflux in in second trimester Musculoskeletal pain Mylagia and myositis, unspecified documented in this encounter Administered Medications Inactive Administered Medications - up to 3 most recent administrations Medication Order MAR Action Action Date Dose Rate Site famotidine PF (PEPCID) 20 mg/2 mL injection 20 mg 20 mg, IV, ONE TIME ONLY, 1 dose, On Rachel 10/14/20 at 1630, Stat Given 10/14/2020 4:42 PM CDT 20 mg documented in this encounter Active and Recently Administered Medications Times are shown in CDT. Scheduled Medication Order 10/12/2020 10/13/2020 10/14/2020 famotidine PF (PEPCID) 20 mg/2 mL injection 20 mg (COMPLETED) 20 mg, IV, ONE TIME ONLY, 1 dose, On Rachel 10/14/20 at 1630, Stat 1642 (Given - Provid er: Elise Galraza RN) documented in this encounter Care Teams Cow Puncher Relationship Specialty Start Date End Date Brian Mon MD [address] [place] [address] PCP - General Internal Medicine 07/15/19 documented as of this encounter
--- OUTSIDE RECORDS SUMMARY | 2024-02-24 20:35 | XMS_ITS | Encounter Summary ---
Author Organization [facility] Address [address] [place]: Epic Prelude ADT [place] [address] Care Team Providers Care Sewer Pipe Sorter Name Role Phone Brian Mon MD Primary Care Provider Encounter Details Date Type Department Care Team (Latest Contact Info) Description 10/14/2020 Travel Social History Tobacco Use Types Packs/Day [...] on filedocumented in this encounter Care Teams Sewer Pipe Sorter Relationship Specialty Start Date End Date Brian Mon MD [address] [place] [address] PCP - General Internal Medicine 07/15/19 documented as of this encounter
--- OUTSIDE RECORDS SUMMARY | 2024-02-24 20:35 | XMS_ITS | Encounter Summary ---
Author Organization [facility] Address [address] [place] [address] Care Team Providers Care Metal Products Viewer Name Role Phone Brian Mon MD Primary Care Provider Reason for Referral * Eval and Treat (Routine) - Closed Specialty Diagnoses / Procedures Referred By Contdouglas t Referred To Contact Diagnoses 2019 novel coronavirus disease (COVID-19) [place] [address] [place] [address] Referral ID Status Reason Start Date Expiration Date V isits Requested Visits Authorized [id number] Closed Performing Dept To Review 03/15/2021 03/15/2022 1 1 LY DINNER SERVICE SPECIALIST Encounter Details Date Type Department Care Team (Late st Contact Info) Description 03/15/2021 Orders Only [facility] CARE [address] [place] [address] [place] [address] [place] [address] 2018 novel coronavirus disease (COVID-19) (Primary Dx) Social History Tobacco Use Types [...] COVID-19? No / Unsure 03/15/2021 7:47 AM FAMILY DINNER SERVICE SPECIALIST documented as of this encounter Plan of Treatment Scheduled Referrals Name Type Priority Associated Diagnoses Orde r Schedule AMB REFERRAL TO [facility] ADULT MONITORING PROGRAM Outpatient Referral Routine 2019 novel coronavirus disease (COVID-19) Ordered: 03/15/2021 documented as of this encounter Visit Diagnoses Diagnosis 2019 novel coronavirus disease (COVID-19)- Primary documented in this encounter Care Teams Metal Products Viewer Relationship Specialty Start Date End Date Brian Mon MD [address] [place] [id number] PCP - General Internal Medicine 07/15/19 documented as of this encounter
--- OUTSIDE RECORDS SUMMARY | 2024-02-24 20:35 | XMS_ITS | Encounter Summary ---
Author Organization [facility] Address [address] [place] [address] Care Team Providers Care State Attorney Name Role Phone Brian Mon MD Primary Care Provider Reason for Visit * Reason Onset Date Comments Medication Problem 04/27/2023 Carito pres cribed tablets vs. Suppository for yeast infection, yesterday. Encounter Details Date Type Department Care Team (Late st Contact Info) Description 04/27/2023 Nurse Triage [facility] Health Clinical Support [address] [place] [id number] Dyllan Bruner RN Social History Tobacco Use Types Packs/Day [...] encounter Miscellaneous Notes * Telephone Encounter - Dyllan Bruner RN - 04/27/2023 10:40 PM CST Reason for Disposition [1] Caller has medicine question about med NOT prescribed by PCP AND [2] triager unable to answer question (e.g., compatibility with other med, storage) Protocols used: Medication Question Call-A-ELBA Carito was seen in the office yesterday for recurrent yeast infections and prescribed Diflucan. She called theresa because she believes she was meant to have a suppository sent in to the pharmacy instead as Diflucan has not worked in the past. She reports being in 5/10 pain with a strong burning sensation. She also reports that Dr Delgado verbally said he would send in a cream for a vulvar ulcer; this part of the note in chart does state it looks more yeast related, but Herpes culture obtained and not yet resulted. I called Dr. Silva extrusion die coordinator theresa for Dr. Delgado and explained the above. She gave TO to send in Terazol 80mg suppository daily once at bedtime for 3 days and clotrimazole BID until wound heals. She gave instructions if herpes culture came back positive, to d/c the cream. I returned call to [address] leaving 2 VM's to call back. No call back received for >15 minutes. Orders placed and sent to [facility] pharmacy on file. Note routed to Dr. Delgado and office for f/uwith patient. Dyllan Bruner RN [facility] Specialty RN KURTIS Fox Test Borer Helper [facility] RONMENTAL SAMPLER documented in this encounter Plan of Treatment Not on file documented as of this encounter Visit Diagnoses Not on filedocumented in this encounter Care Teams State Attorney Relationship Specialty Start Date End Date Brian Mon MD [address] [place] [address] PCP - General Internal Medicine 07/15/19 documented as of this encounter
--- OUTSIDE RECORDS SUMMARY | 2024-02-24 20:35 | XMS_ITS | Encounter Summary ---
Author Organization [facility] Address [address] [place] [address] Care Team Providers Care Subsystems Engineer Name Role Phone Brian Mon MD Primary Care Provider [phone] Encounter Details Date Type Department Care Team (Latest Contact Info) Description 11/15/2022 8:30 AM CDT Ancillary Procedure [facility] OBGYN [address] [address] [place] [address] Dysmenorrhea; Pelvic pain in female Social History Tobacco Use Types Packs/Day Years [...] Name Priority Date/Time Associated Diagnosis Comments US PELVIC TRANSVAGINAL Routine 11/15/2022 8:40 AM CDT Dysmenorrhea Pelvic pain in female documented in this encounter Results * US PELVIC TRANSVAGINAL (11/15/2022 8:40 AM CDT) Anatomical Region Laterality Modality Pelvis Ultrasound 11/15/2022 8:33 AM CDT Narrative 11/16/2022 2:14 PM CDT CLINIC PELVIC ULTRASOUND ----- Pat. Name: UMER MADISON Study Date: 11/15/2022 8:33am Pat. NO: [id number] Referring ??MD: KATHRIN Jasmine Site: [address] Captain: Sydney Madrid RDMS : 1990 Age: 32 ----- INDICATION ----- Pelvic Pain Dysmenorrhea CODING ----- Diagnoses ? N94.6: Dysmenorrhea ?R10.2: Pelvic pain Procedures ?29115: Ultrasound non OB transvaginal ?22447: Limited follow-up Non OB ASSESSMENT ----- LMP on 10/25/2022 METHOD ----- HEEL DIPPER Transvaginal US Examination UTERUS ----- Long 88 mm x ap 42 mm x tr 50 mm. Vol 94.8 cm?? Position: anteverted Myometrium: scar noted, homogeneous Endometrium: normal. Endometrial thickness, total 13.2 mm Cervix details: unremarkable. RIGHT OVARY ----- appears normal in size, shape, structure and morphology. Size 24 mm x 17 mm x 22 mm. Vol 4.7 cm?? LEFT OVARY ----- appears normal in size, shape, structure and morphology. Size 18 mm x 23 mm x 10 mm. Vol 2.1 cm?? CUL DE SAC ----- Free fluid is seen: mild IMPRESSION ----- Normal exam. Procedure Note Sheldon Delgado MD - 11/16/2022 [facility] PELVIC ULTRASOUND ----- Pat. Name:Glen MADISON Date:11/15/2022 8:33am Pat. NO: [id number] MD:KATHRIN Jasmine Site:[place] [address]ASonographer:Sydney Madrid RDMS :1990Age:32 ----- INDICATION ----- Pelvic Pain Dysmenorrhea CODING ----- Diagnoses N94.6: Dysmenorrhea R10.2: Pelvic pain Procedures 33523: Ultrasound non OB transvaginal 33720: Limited follow-up Non OB ASSESSMENT ----- LMP on 10/25/2022 METHOD ----- HEEL DIPPER Transvaginal US Examination UTERUS ----- Long 88 mm x ap 42 mm x tr 50 mm. Vol 94.8 cm?? Position: anteverted Myometrium: scar noted, homogeneous Endometrium: normal. Endometrial thickness, total 13.2 mm Cervix details: unremarkable. RIGHT OVARY ----- appears normal in size, shape, structure and morphology. Size 24 mm x 17 mm x 22 mm. Vol 4.7 cm?? LEFT OVARY ----- appears normal in size, shape, structure and morphology. Size 18 mm x 23 mm x 10 mm. Vol 2.1 cm?? CUL DE SAC ----- Free fluid is seen: mild IMPRESSION ----- Normal exam. Lisette De Santiago NP ORDERABLES documented in this encounter Visit Diagnoses Diagnosis Dysmenorrhea Pelvic pain in female Unspecified symptom associated with female genital organs documented in this encounter Care Teams Subsystems Engineer Relationship Specialty Start Date End Date Brian Mon MD [address] [place] [address] PCP - General Internal Medicine 07/15/19 documented as of this encounter
--- OUTSIDE RECORDS SUMMARY | 2024-02-24 20:35 | XMS_ITS | Encounter Summary ---
Author Organization [facility] Address [address] [place]: Epic Prelude ADT [place] [address] Care Team Providers Care Event Marketing Assistant Name Role Phone Brian Mon MD Primary Care Provider Encounter Details Date Type Department Care Team (Latest Contact Info) Description 09/20/2020 Travel Social History Tobacco Use Types Packs/Day [...] have Coronavirus / COVID-19? Unable to assess 09/20/2020 9:51 AM CDT documented as of this encounter Plan of Treatment Not on file documented as of this encounter Visit Diagnoses Not on filedocumented in this encounter Care Teams Event Marketing Assistant Relationship Specialty Start Date End Date Brian Mon MD [address] [place] [address] PCP - General Internal Medicine 07/15/19 documented as of this encounter
--- OUTSIDE RECORDS SUMMARY | 2024-02-24 20:35 | XMS_ITS | Encounter Summary ---
Author Organization [facility] Address [address] [place] [address] Care Team Providers Care Offline Editor Name Role Phone Brian Mon MD Primary Care Provider Reason for Referral * Radiology Services (Routine) - Closed Specialty Diagnoses / Procedures Referred By Jud freeman Referred To Contact Diagnoses Breast lump on right side at 8 o'clock position Procedures MAMMO [place] [address] [place] [address] Referral ID Status Reason Start Date Expiration Date Visits Re quested Visits Authorized [id number] Closed 11/08/2022 12/09/2023 1 1 Reason for Visit * Reason Comments Bladder Infection Encounter Details Date Type Department Care Team (Late st Contact Info) Description 11/08/2022 9:15 AM CDT Office Visit [facility]YN [address] [place] [address] [place] [address] [place] [address] Pelvic pain in female (Primary Dx); Breast lump on right side at 8 o'clock position; Frequent UTI; Encounter for cervical Pap smear with pelvic exam; Deep dyspareunia in female; Menorrhagia with regular cycle; Dysmenorrhea Social History Tobacco Use Types Packs/Day Years [...] Sign Reading Time Taken Comments Blood Pressure 112/80 11/08/2022 9:24 AM CDT Pulse - - Temperature - - Respiratory Rate - - Oxygen Saturation - - Inhaled Oxygen Concentration - - Weight 79.8 kg (176 lb) 11/08/2022 9:24 AM CDT Height 157.5 cm (5' 2 ) 11/08/2022 9:24 AM CDT Body Mass Index 32.19 11/08/2022 9:24 AM CDT documented in this encounter Progress Notes * Lisette De Santiago, IKNGA - 11/08/2022 10:24 AM CDT CC: pelvic pain HPI: Carito Madison is a 32 y.o. , presenting to the office with complaints of pelvic pain on her left side. The pain started yesterday. She states it comes and goes but is very painful when she has it. She has struggled with intermittent pelvic pain for a while now. She has been told to get a ultrasound in the past but admits she didn't do it. Interested in this now. Periods are regular but extremely heavy and painful. She also has pain with sex. Has not had sex shyam while due to the pain. 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 She statesit can become tender and is bothering her. She is interested in a breast reduction in general but would like to get this removed at the same time if possible. Also complains of a cyst or bump in her back that is on the lower left side. Also hoping to get a pap while she is here, states it has been a while. She is self pay. 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 GEN: NAD, well-developed PULM: Regular breathing rate and effort ABD: nondistended NEURO: A&Ox3 BREAST: 3 cm mobile mass palpated at 8 o'clock in right breast, mild tenderness to palpation PELVIC: VULVA: normal appearing vulva with no masses, tenderness or lesions, VAGINA: normal appearing vagina with normal color and discharge, no lesions, CERVIX: normal appearing cervix without discharge or lesions, UTERUS: uterus is normal size, shape, consistency and nontender, ADNEXA: normal adnexa in size, left adnexa is tender to palpation, right adnexa is nontender Labs: No results found for this visit on 11/08/22. ASSESSMENT/PLAN: Encounter Diagnoses Code Name Primary? R10.2 Pelvic pain in female Yes N63.13 Breast lump on right side at 8 o'clock position N39.0 Frequent UTI Z01.419 Encounter for cervical Pap smear with pelvic exam N94.12 Deep dyspareunia in female N92.0 Menorrhagia with regular cycle N94.6 Dysmenorrhea Pelvic Pain in Female - tenderness on left adnexa during exam - discussed need for ultrasound for further evaluation, she scheduled this before she left - STD testing refluxed off pap smear - discussed possibility of pain including ovarian cysts, fibroids, and endometriosis Breast Lump - this is in the same location that her lactating fibroadenoma has been diagnosed and biopsied - due to her wanting surgery, recommended repeat scan - she is considering seeing a plastic surgeon for breast reduction, she will reach out to our office if she needs a referral Frequent UTI - no urinary tract infection on today's dipstick in office, this is not causing her pain Encounter for Pap Smear - pap smear collected after verbal consent obtained Deep Dyspareunia, Menorrhagia, and Dysmenorrhea - discussed painful sex and painful periods - did schedule ultrasound before she left - pap refluxed to rule out infections - discussed possible endometriosis, does not want surgery at this time for evaluation Other: - recommended she follow with a PCP regarding the bump on her back she is feeling RTC for ultrasound or prn Orders Placed This Encounter URINE CULTURE MAMMO BREAST US RIGHT LTD CERV/VAG CYTO AGE BASED SCREEN PAP W CT/NG, TRICH documented in this encounter Plan of Treatment Scheduled Orders Name Type Priority Associated Diagnoses Orde r Schedule MAMMO BREAST US RIGHT LTD Imaging Routine Breast lump on right side at 8 o'clock position 1 Occurrences starting 11/08/2022 until 05/08/2024 documented as of this encounter Procedures Procedure Name Priority Date/Time Associated Diagnosis Comments CERV/VAG CYTO AGE BASED SCREEN PAP W CT/NG, TRICH Routine 11/08/2022 10:24 AM CDT Encounter for cervical Pap smear with pelvic exam URINE CULTURE Routine 11/08/2022 10:24 AM CDT Frequent UTI documented in this encounter Results * (ABNORMAL) CERV/VAG CYTO AGE BASED SCREEN PAP W CT/NG, TRICH (11/08/2022 10:24 AM CDT) COMMENT (PAP): [facility] [employer] [place] Comment: This order for age-based cervical cancer and STI screening follows ACOG guidelines(PB 168, 140, DYJ918). See individual assays for performing site location. CLINICAL INFORMATION [facility] Comment:None given LAST MENSTRUAL PERIOD [facility] [employer] [place] Comment:NONE GIVEN PREV PAP: [facility] [place] Comment:NONE GIVEN PREV BX: [facility] [place] Comment:NONE GIVEN SOURCE [facility] [employer] [place] Comment:Endocervix ADEQUACY: [facility] [employer] [place] Comment: Satisfactory for evaluation. Endocervical/transformation zone component present. Age and/or menstrual status not provided GENERAL CATEGORIZATION: (A) [facility] [employer] [place] Comment:Cytology Results: Ep ithelial Cell Abnormality PAP INTERP (A) [facility] Comment: Atypical Squamous Cells of Undetermined Significance (ASC-US) COMMENT (PAP TEST) [facility] [employer] [place] Comment: This Pap test has been evaluated with computer assisted technology. INSPECTOR OPEN DIE: Cailin Roach [place] Comment: ELIA MATHUR(ASCP) CT Screening Location: [place] [address] [place] [address] [facility] [facility] Comment: eMena Del Toro M.D. Board Certified in Anatomic Pathology, Clinical Pathology and Cytopathology, Specializing in Urologic Pathology [phone] (electronic signature) EXPLANATORY NOTE Que [facility] [place] Comment: EXPLANATORY NOTE: The Pap is a [...] information. HPV E6/E7 Not Detected Not Detected [facility] [employer] [place] Comment: Methodology: Surgical Instrument Technician-Mediated Amplification This assay detects E6/E7 viral messenger RNA (mRNA) from 14 high-risk HPV types (16,18,31,33,35,39,45,51,52,56,58,59,66,68). Cervical sources are required for HPV testing. If a vaginal source from a patient who has had a total hysterectomy with removal of cervix was submitted, please contact the testing laboratory for alternative testing options. For additional information, please refer to http://[employer]/faq/SGO503r9 (This link if provided for information/ educational purposes only.) C TRAC RNA NOT DETECTED NOT DETECTED [facility] [place] N.GONORRHOEAE RNA, TMA NOT DETECTED NOT DETECTED [facility] [place] COMMENT INFECTIOUS DISEASE [facility] [employer] [place] Comment: The analytical performance characteristics of this assay, when used to test SurePath(TM) specimens have been determined by [facility]. The modifications have not been cleared or approved by the FDA. This assay has been validated pursuant to the CLIA regulations and is used for clinical purposes. For additional information, please refer to https://GetSocial/faq/MFL377 (This link is being provided for information/ educational purposes only.) TRICHOMONAS VAGINALIS,QUALITAT FAZAL,PAP VIAL NOT DETECTED NOT DETECTED [facility] [employer] [place] Comment: The analytical performance characteristics of this assay have been determined by [facility]. The modifications have not been cleared or approved by the FDA. This assay has been validated pursuant to the CLIA regulations and is used for clinical purposes. For additional information, please refer to http://GetSocial/ faq/Trichomonastma (This link is being provided for information/ educational purposes only.) Test Performed at: [address] ??[phone] Pako ZAVALA Genital SWAB OF ENDOCERVIX / Unknown 11/08/2022 10:24 AM CDT 11/09/2022 3:41 AM CDT Lisette De Santiago NP PATHOLOGY/CYTOLOGY ORDERABLES [facility] [phone] [address] * URINE CULTURE (11/08/2022 10:24 AM CDT) URINE CULTURE SEE NOTE [facility] CommunicationsAurelio lydia Varun Comment: ??CULTURE, URINE, ROUTINE ?Micro Number: ?[id number] ??Test Status: ? Final ??Specimen Source: ?? Urine, clean catch ??Specimen Quality: ??Adequate ??Result: ?No Growth Test Performed at: [place] [address] [place] ??[address] Amanda Manzano Urine URINE SPECIMEN OBTAINED BY CLEAN CATCH PROCEDURE / Unknown 11/08/2022 10:24 AM CDT 11/09/2022 3:49 AM CDT Lisette De Santiago NP MICROBIOLOGY - GEN ERAL ORDERABLES [facility] [phone] [place] [address] [place] [address] documented in this encounter Visit Diagnoses Diagnosis Pelvic pain in female- Primary Unspecified symptom associated with female genital organs Breast lump on right side at 8 o'clock position Lump or mass in breast Frequent UTI Urinary tract infection, site not specified Encounter for cervical Pap smear with pelvic exam Screening for malignant neoplasm of the cervix Deep dyspareunia in female Menorrhagia with regular cycle Excessive or frequent menstruation Dysmenorrhea documented in this encounter Care Teams Offline Editor Relationship Specialty Start Date End Date Brian Mon MD [address] [place] [phone] PCP - General Internal Medicine 07/15/19 documented as of this encounter
--- OUTSIDE RECORDS SUMMARY | 2024-02-24 20:35 | XMS_ITS | Encounter Summary ---
Author Organization [facility] Address [address] [place] [address] Care Team Providers Care Smudger Name Role Phone Brian Mon MD Primary Care Provider [phone] Reason for Visit * Reason Onset Date Comments Medication Refill 05/01/2022 Encounter Details Date Type Department Care Team (Late st Contact Info) Description 05/01/2022 Refill [facility] OBGYN [address] [facility] [address] [address] [facility] [address] [place] [address] [place] [address] [facility] [address] [place], [place] [phone] Cystitis (Primary Dx) Social History Tobacco Use Types [...] as of this encounter Visit Diagnoses Diagnosis Cystitis- Primary Cystitis, unspecified documented in this encounter Care Teams Smudger Relationship Specialty Start Date End Date Brian Mon MD [address] [place] [address] PCP - General Internal Medicine 07/15/19 documented as of this encounter
--- OUTSIDE RECORDS SUMMARY | 2024-02-24 20:35 | XMS_ITS | Encounter Summary ---
Author Organization [facility] Address [address] [place] [address] Care Team Providers Care Utility Worker Film Processing Name Role Phone Brian Mon MD Primary Care Provider Reason for Visit * Reason Onset Date Comments transfer of care 10/07/2020 Encounter Details Date Type Department Care Team (Late st Contact Info) Description 10/07/2020 Telephone [facility] OBGYN [address] [place] [address] [place] [address] [facility] [address] [address] transfer of care Social History Tobacco Use Types Packs/Day [...] encounter Miscellaneous Notes * Telephone Encounter - Harpreet Krista - 10/07/2020 11:53 AM CDT This patient is currently 23 weeks and asked to cancel her appointment with Dr. Delgado today. Patient states that she is going to be transferring her care to [facility] [place]. Dr. 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 The patient said that she is going to see one of the ten [facility] doctors at [place]. I notifed Bradley and she marked her as a transferin her charting. I also notified Dr. Delgado of the transfer. documented in this encounter Plan of Treatment Not on file documented as of this encounter Visit Diagnoses Not on filedocumented in this encounter Care Teams Utility Worker Film Processing Relationship Specialty Start Date End Date Brian Mon MD [address] [place] [address] PCP - General Internal Medicine 07/15/19 documented as of this encounter
--- OUTSIDE RECORDS SUMMARY | 2024-02-24 20:35 | XMS_ITS | Encounter Summary ---
Author Organization [facility] Address [address] [place] [address] Care Team Providers Care Agricultural Purchasing Agent Name Role Phone Brian Mon MD Primary Care Provider Reason for Referral * Laboratory Services (Routine) - Closed Specialty Diagnoses / Procedures Referred By Jud freeman Referred To Contact Diagnoses Acute vaginitis VD (venereal disease) screening Possible exposure to STD Procedures VAGINOSIS/VAGINITIS PANEL PLUS Sheldon Delgado MD [address] [place] [address] Referral ID Status Reason Start Date Expiration Date Visits Re quested Visits Authorized [id number] Closed 01/16/2023 02/16/2024 1 1 MANAGEMENT COORDINATOR Reason for Visit * Reason Comments Vaginal Itching * Laboratory Services (Routine) - Closed Specialty Diagnoses / Procedures Referred By Jud freeman Referred To Contact Diagnoses Acute vaginitis VD (venereal disease) screening Possible exposure to STD Procedures VAGINOSIS/V[place] [address] [facility] [address] [place] [id number] Referral ID Status Reason Start Date Expiration Date Visits Re quested Visits Authorized [id number] Closed 01/16/2023 02/16/2024 1 1 Encounter Details Date Type Department Care Team (Late st Contact Info) Description 01/16/2023 1:10 PM CASH MANAGEMENT COORDINATOR Office Visit [facility] OBGYN [address] [facility] [address] [address] [facility] [address] [place] [address] [place] [address] [facility] [address] [place], [place] [id number] Acute vaginitis (Primary Dx); VD (venereal disease) screening; Possible exposure to STD Social History Tobacco Use Types Packs/Day Years [...] Sign Reading Time Taken Comments Blood Pressure 122/72 01/16/2023 12:56 PM CASH MANAGEMENT COORDINATOR Pulse - - Temperature - - Respiratory Rate - - Oxygen Saturation - - Inhaled Oxygen Concentration - - Weight 80.3 kg (177 lb) 01/16/2023 12:56 PM CASH MANAGEMENT COORDINATOR Height 157.5 cm (5' 2 ) 01/16/2023 12:56 PM CASH MANAGEMENT COORDINATOR Body Mass Index 32.37 01/16/2023 12:56 PM CASH MANAGEMENT COORDINATOR documented in this encounter Progress Notes * Sheldon Delgado MD - 01/16/2023 1:22 PM CST CDU systems Exam office visit [facility] WASH TEST CHECKER Clinic on [facility] Carito Madison 32 y.o. 1990 HISTORY Chief Complaint Patient presents with Vaginal Itching HPI: 32 y.o., , No LMP recorded (lmp unknown)., Patient complains of vaginal itching and burning. She denies having a discharge. She was concerned that she may be having a herpetic outbreak. Past Medical History: Diagnosis Date Joseph's disease Connective tissue disease Fibromyalgia Gastroesophageal reflux in in second trimester 10/14/2020 Herpes Hx of hyperprolactinemia Lupus Past Surgical History: Procedure Laterality Date HX APPENDECTOMY HX SECTION HX MEDIAN NERVE REPAIR Family History Problem Relation Name Age of Onset Breast Cancer Paternal Grandmother unsure age of onset Uterine Cancer Neg Hx Ovarian Cancer Neg Hx Current Outpatient Medications: sertraline (ZOLOFT) 25 mg tablet, Take 1 tablet by mouth once daily, Disp: 90 Tablet, Rfl: 1 valACYclovir (Valtrex) 500 mg tablet, Take 1 [...] Marital status: Tobacco Use Smoking status: Former Packs/day: .25 Types: Cigarettes Quit date: 12/11/2017 Years since quittin.1 Smokeless tobacco: Never Vaping Use Vaping Use: Never used Substance and Sexual Activity Alcohol use: Not Currently Comment: socially Drug use: Not Currently Types: Marijuana, Cocaine Comment: one time use 12/2017 Sexual activity: Not Currently Partners: Male ROS: Constitutional: no high fevers, chills, extreme fatigue Psychosocial: no depression, delusions, Cardiovascular: no severe chest pain Respiratory: no SOB, productive cough HEENT: no edema or trauma Breast: no mastitis or masses Gastrointestinal: no watery diarrhea, stool changes, incontinence of flatus Endocrine: dry skin, hair growth, hair loss, increase thirst, Genitourinary: urinary incontinence, urinary urgency, dysuria, vasomotor symptoms, PHYSICAL EXAMINATION Vitals: 01/16/23 1256 BP: 122/72 Weight: 80.3 kg (177 lb) Height: 5' 2 (1.575 m) Body mass index is 32.37 kg/m??. Head: normocephalic and atraumatic Neck: normal without enlarged thyroid, no thyroid nodules are noted. Skin: warm and dry. Cardiovascular: RRR, I do not appreciate a gallop. Lungs: Clear without crackles and wheezes Abdomen: soft, not an acute abdomen, not distended, no guarding Lower Extremities: She has no evidence of a deep venous thrombosis. Pelvic: resaw tailer present at exam, the vulva is without [...] Breast Examination: Encounter Diagnoses Code Name Primary? N76.0 Acute vaginitis Yes Z11.3 VD (venereal disease) screening Z20.2 Possible exposure to STD PLAN: My lpn or medical assistant was present throughout the entire history and physical examination. This patient went to be tested for diabetes mellitus. I ordered a fasting glucose level. I am going to treat the patient with terconazole suppositories. She very well may have Patti Galla product. She took 2 Diflucan which did not work. This is another reason to test her for diabetes mellitus. A total of 20 minutes were spent [...] patients expectations. This report was transcribed using [employer] speaking voice recognition system. Despite editing there may be minor grammatical and/or minor typographical errors in this stocklayer due to thelimitations inherent with voice activated computer dictation. This should not adversely affect the overall integrity of the document. Please call for any questions or clarifications as needed. MANAGEMENT COORDINATOR documented in this encounter Miscellaneous Notes * Result Encounter Note - Sheldon Delgado MD - 01/22/2023 2:58 PM CASH MANAGEMENT COORDINATOR Please tell her that her fasting glucose is normal. She does not have diabetes. MANAGEMENT COORDINATOR documented in this encounter Plan of Treatment Not on file documented as of this encounter Procedures Procedure Name Priority Date/Time Associated Diagnosis Comments GLUCOSE FASTING Routine 01/19/2023 8:22 AM CASH MANAGEMENT COORDINATOR Acute vaginitis VAGINOSIS/VAGINITIS PANEL PLUS Routine 01/16/2023 1:25 PM CASH MANAGEMENT COORDINATOR Acute vaginitis VD (venereal disease) screening Possible exposure to STD documented in this encounter Results * GLUCOSE FASTING (01/19/2023 8:22 AM CASH MANAGEMENT COORDINATOR) GLUCOSE FASTING 82 65 - 99 mg/dL [facility] Comment: ? Fasting reference interval FASTING:YES FASTING: YES Test Performed at: [facility] [address] [place], [place] ??[phone] Amanda Manzano MD Blood 01/19/2023 8:22 AM CASH MANAGEMENT COORDINATOR 01/19/2023 8:23 AM CASH MANAGEMENT COORDINATOR Sheldon Delgado MD CHEMISTRY ORDERABLES [facility] [phone] [facility] [address] [place] [address] * (ABNORMAL) VAGINOSIS/VAGINITIS PANEL PLUS (01/16/2023 1:25 PM CASH MANAGEMENT COORDINATOR) BACTERIAL VAGINOSIS NEGATIVE NEGATIVE [facility] PATTI SPECIES DETECTED(A) NOT DETECTED [facility] PATTI GLABRATA NOT DETECTED NOT DETECTED [facility] Comment: Patti species C. albicans, C. tropicalis, C. parapsilosis, and/or C. dubliniensis can be detected, but not differentiated, in the Patti spp. result. TRICHOMONAS VAGINALIS (TV), TMA NOT DETECTED NOT DETECTED [facility] C TRAC RNA NOT DETECTED NOT DETECTED [facility] N.GONORRHOEAE RNA, TMA NOT DETECTED NOT DETECTED [facility] Comment: For additional information, please refer to https://education.Bazinga/faq/XDC688 (This link is being provided for information/ educational purposes only.) Test Performed at: [facility] [address] [place], [place] ??[phone] Amanda Manzano MD Genital SPECIMEN FROM VAGINA / Unknown 01/16/2023 1:25 PM CASH MANAGEMENT COORDINATOR 01/18/2023 6:03 AM CASH MANAGEMENT COORDINATOR Sheldon Delgado MD MICROBIOLOGY - [facility] AL ORDERABLES [facility] [phone] [facility] [address] [place] [address] documented in this encounter Visit Diagnoses Diagnosis Acute vaginitis- Primary Vaginitis and vulvovaginitis, unspecified VD (venereal disease) screening Screening examination for venereal disease Possible exposure to STD Other specified personal history presenting hazards to health documented in this encounter Care Teams Agricultural Purchasing Agent Relationship Specialty Start Date End Date Brian Mon MD [address] [place] [address] PCP - General Internal Medicine 07/15/19 documented as of this encounter
--- OUTSIDE RECORDS SUMMARY | 2024-02-24 20:35 | XMS_ITS | Encounter Summary ---
Author Organization [facility] Address [address] [place] [address] Care Team Providers Care Business Analysis Professional Name Role Phone Brian Mon MD Primary Care Provider Encounter Details Date Type Department Care Team (Late st Contact Info) Description 09/06/2020 Orders Only [facility] OBGYN [address] [facility] [address] [address] [facility] [address] [place] [address] [place] [address] [place] [address] Social History Tobacco Use Types [...] filedocumented in this encounter Care Teams Business Analysis Professional Relationship Specialty Start Date End Date Brian Mon MD [address] [place] [phone] PCP - General Internal Medicine 07/15/19 documented as of this encounter
--- OUTSIDE RECORDS SUMMARY | 2024-02-24 20:35 | XMS_ITS | Encounter Summary ---
Author Organization [facility] Address [address] [place]: Epic Prelude ADT [place] [address] Care Team Providers Care Research Chemical Engineer Name Role Phone Brian Mon MD Primary Care Provider Encounter Details Date Type Department Care Team (Latest Contact Info) Description 03/15/2021 Travel Social History Tobacco Use Types Packs/Day [...] COVID-19? No / Unsure 03/15/2021 7:47 AM AIR VALVE REPAIRER documented as of this encounter Plan of Treatment Not on file documented as of this encounter Visit Diagnoses Not on filedocumented in this encounter Care Teams Research Chemical Engineer Relationship Specialty Start Date End Date Brian Mon MD [address] [place] [address] PCP - General Internal Medicine 07/15/19 documented as of this encounter
--- OUTSIDE RECORDS SUMMARY | 2024-02-24 20:35 | XMS_ITS | Encounter Summary ---
Author Organization [facility] Address [address] [place] [address] Care Team Providers Care Pump Oiler Name Role Phone Brian Mon MD Primary Care Provider Reason for Visit * Reason Onset Date Comments Low Hemoglobin 11/09/2020 Encounter Details Date Type Department Care Team (Late st Contact Info) Description 11/09/2020 Telephone [facility] OBGYN [address], [place] [address] [place] [address] [facility] [address] [address] Low Hemoglobin Social History Tobacco Use Types Packs/Day Years [...] Telephone Encounter - Iris Lucio RN - 11/09/2020 3:09 PM CDT Pt states she went to [place] today and they tested her Hgb with a finger stick and it was 9.3. Theytold her to follow up with her OB regarding an iron infusion. Please advise. documented in this encounter Plan of Treatment Not on file documented as of this encounter Visit Diagnoses Not on filedocumented in this encounter Care Teams Pump Oiler Relationship Specialty Start Date End Date Brian Mon MD [address] [place] [address] PCP - General Internal Medicine 07/15/19 documented as of this encounter
--- OUTSIDE RECORDS SUMMARY | 2024-02-24 20:35 | XMS_ITS | Encounter Summary ---
Author Organization [facility] Address [address] [place] [address] Care Team Providers Care Mild Disabilities Teacher Name Role Phone Brian Mon MD Primary Care Provider Reason for Visit * Reason Comments Routine Visit Encounter Details Date Type Department Care Team (Late st Contact Info) Description 11/02/2020 11:10 AM CDT visit [facility] OBGYN [address] [facility] [address], [place] [address] Sheldon Delgado MD [address] [place] [address] [address], [place] [address] 27 weeks gestation of (Primary Dx) Social History Tobacco Use Types [...] Sign Reading Time Taken Comments Blood Pressure 110/78 11/02/2020 11:31 AM CDT Pulse - - Temperature - - Respiratory Rate - - Oxygen Saturation - - Inhaled Oxygen Concentration - - Weight 83.7 kg (184 lb 9.6 oz) 11/02/2020 11:31 AM CDT Height - - Body Mass Index 32.7 10/14/2020 3:53 PM CDT documented in this encounter Progress Notes * Sheldon Delgado MD - 11/02/2020 11:53 AM CDT [facility] Obstetrical Clinic Visit 30 y.o. S: This patient denies bleeding, loss of fluid, cramping and emesis. O: Vitals: 11/02/20 1131 BP: 110/78 Fundus is normal in size. heart tones are within normal limits. Her abdomen is , soft and not tender. There is no evidence of a DVT. A/P EDC- 01/30/2021 Prior : This patient had a spontaneous miscarriage at 12 weeks. She had a spontaneous miscarriage at 6 weeks. Herpes history: YES G1PO Neg AFP GCT Normal per patient. She is going to [facility] for her Care. High Risk Category Placenta Previa HERPES LUPUS ADDISONS Baby ASA On prednisone/hydroxychloroquine and Zoloft. She did take progesterone until 12 weeks gestation. She is being followed in the maternal- medicine Center at [facility] because it is close to her house. documented in this encounter Plan of Treatment Not on file documented as of this encounter Visit Diagnoses Diagnosis 27 weeks gestation of - Primary state, incidental documented in this encounter Care Teams Mild Disabilities Teacher Relationship Specialty Start Date End Date Brian Mon MD [address] [place] [address] PCP - General Internal Medicine 07/15/19 documented as of this encounter
--- OUTSIDE RECORDS SUMMARY | 2024-02-24 20:35 | XMS_ITS | Encounter Summary ---
Author Organization [facility] Address [address] [place] [address] Care Team Providers Care Research Development Manager Name Role Phone Brian Mon MD Primary Care Provider Encounter Details Date Type Department Care Team (Late st Contact Info) Description 05/01/2023 External Device Data ST[facility] ABSTRACTION Provider, Abstract [...] filedocumented in this encounter Care Teams Research Development Manager Relationship Specialty Start Date End Date Brian Mon MD [address] [place] [address] PCP - General Internal Medicine 07/15/19 documented as of this encounter
--- OUTSIDE RECORDS SUMMARY | 2024-02-24 20:35 | XMS_ITS | Encounter Summary ---
Author Organization [facility] Address [address] [place] [address] Care Team Providers Care Meat Curer Name Role Phone Brian Mon MD Primary Care Provider Reason for Visit * Reason Onset Date Comments Delivery 11/16/2020 Encounter Details Date Type Department Care Team (Late st Contact Info) Description 11/16/2020 Telephone [facility] OBGYN [address] [place] [address] [place] [address] [facility] 230[place], [place] [address] Delivery Social History Tobacco Use Types Packs/Day Years [...] encounter Miscellaneous Notes * Telephone Encounter - Bradley Burr - 11/16/2020 11:16 AM CDT I received an email from patient on 11/15/2020 at 11:09 am. Maude Huerta so after meeting with [facility] today and my lupus dr they have decided it is best I deliver at [place] so I will be discontinuing care there until a later time thank you guys for everything! My response was: Ok, I have canceled your csection on 01/05/2021 and wish you the best of luck! documented in this encounter Plan of Treatment Not on file documented as of this encounter Visit Diagnoses Not on filedocumented in this encounter Care Teams Meat Curer Relationship Specialty Start Date End Date Brian Mon MD [address] [place] [address] PCP - General Internal Medicine 07/15/19 documented as of this encounter
--- OUTSIDE RECORDS SUMMARY | 2024-02-24 20:35 | XMS_ITS | Encounter Summary ---
Author Organization [facility] Address [address] [place] [address] Care Team Providers Care Human Resources Training Manager Name Role Phone Brian Mon MD Primary Care Provider Reason for Visit * Reason Comments Routine Visit Encounter Details Date Type Department Care Team (Late st Contact Info) Description 09/21/2020 12:30 PM CDT visit [facility] OBGYN [address] [facility] [address] [place] [address] [address] [address] Sheldon Delgado [place] [id number] [place] [address] 230[place] [address] Primiparity, second trimester (Primary Dx); Urine frequency Social History Tobacco Use Types Packs/Day [...] Sign Reading Time Taken Comments Blood Pressure 110/72 09/21/2020 12:40 PM CDT Pulse - - Temperature - - Respiratory Rate - - Oxygen Saturation - - Inhaled Oxygen Concentration - - Weight 81.2 kg (179 lb) 09/21/2020 12:40 PM CDT Height - - Body Mass Index 33.82 09/04/2020 8:38 AM CDT documented in this encounter Progress Notes * Sheldon Delgado MD - 09/21/2020 1:20 PM CDT [facility] Obstetrical Clinic Visit 30 y.o. S: This patient denies bleeding, loss of fluid, cramping and emesis. O: Vitals: 09/21/20 1240 BP: 110/72 Fundus is normal in size. heart tones [...] Name Priority Date/Time Associated Diagnosis Comments POC URINALYSIS DIPSTICK AUTOMATED Routine 09/21/2020 12:44 PM CDT Urine frequency documented in this encounter Results * (ABNORMAL) POC URINALYSIS DIPSTICK AUTOMATED (09/21/2020 12:44 PM CDT) COLOR UA Migdalia(A) Pale to Dark Yellow [facility] OBGYN [address] [address] CLARITY UA Clear [place] [facility] [place] [address] [address] GLUCOSE UA Negative Negative, Normal [facility]YN [address] [address] BILIRUBIN UA Negative Negative [facility] BGYN [address] [address] KETONES UA Negative [place] [facility] [address] [address] SPECIFIC GRAVITY UA POC >=1.030 1.000 - 1.030 [facility] O[facility]YN [address] [address] BLOOD UA Negative Negative [facility] N [address] [address] PH UA 5.0 5.0 - 8.0 [facility] OBG[facility] N [address] [address] PROTEIN UA Trace(A) [place] [facility] [address] [address] UROBILINOGEN UA 0.2 <2.0 mg/dL [facility] OBGYN [address] [address] NITRITE U[place] Negative [place] [facility] [place] [address] [address] LEUKOCYTE ESTERASE UA Negative Negative [facility] OBGYN [address] [address] KIT LOT NUMBER POC 6,075 [facility] [address] KIT EXPIRATION DATE POC 02/25/2022 [facility] OBGYN [address] [address] Urine 09/21/2020 12:4 4 PM CDT Sheldon Delgado MD POINT OF CARE TESTIN G [facility] OBN [address] [address] CLIA [id number] [address] [place] [phone] documented in this encounter Visit Diagnoses Diagnosis Primiparity, second trimester- Primary Urine frequency Urinary frequency documented in this encounter Care Teams Human Resources Training Manager Relationship Specialty Start Date End Date Brian Mon MD [address] [place] [phone] PCP - General Internal Medicine 07/15/19 documented as of this encounter
--- OUTSIDE RECORDS SUMMARY | 2024-02-24 20:35 | XMS_ITS | Encounter Summary ---
Author Organization [facility] Address [address] [facility] [address] [place]: Epic Prelude ADT [place] [address] Care Team Providers Care Family Psychologist Name Role Phone Brian Mon MD Primary Care Provider Encounter Details Date Type Department Care Team (Latest Contact Info) Description 11/12/2020 Travel Social History Tobacco Use Types Packs/Day [...] on filedocumented in this encounter Care Teams Family Psychologist Relationship Specialty Start Date End Date Brian Mon MD [address] [place] [address] PCP - General Internal Medicine 07/15/19 documented as of this encounter
--- OUTSIDE RECORDS SUMMARY | 2024-02-24 20:35 | XMS_ITS | Encounter Summary ---
Author Organization [facility] Address [address] [place] [address] Care Team Providers Care Surgeon Chief Name Role Phone Brian Mon MD Primary Care Provider Reason for Visit * Auth/Cert Specialty Diagnoses / Procedures Referred By Jud freeman Referred To Contact Obstetrics [facility] Labor And Delivery [address] [place] [address] Referral ID Status Reason Start Date Expiration Date Visits Re quested Visits Authorized [id number] 1 1 Encounter Details Date Type Department Care Team (Latest Contact Info) Description 09/04/2020 7:04 AM CDT - 09/04/2020 9:00 AM CDT Hospital Encounter [facility] Labor and Delivery [address] [place] [address] [place] [address] [facility] [address] [place] [address] Discharge Disposition: Home or Self Care Social [...] Sign Reading Time Taken Comments Blood Pressure 129/75 09/04/2020 7:00 AM CDT Pulse - - Temperature 36.9 ??C (98.4 ??F) 09/04/2020 7 :00 AM CDT charted for Ty, OBT Respiratory Rate 16 09/04/2020 7:00 AM CDT charted for Ty, OBT. Oxygen Saturation 100% 09/04/2020 7:0 0 AM CDT Inhaled Oxygen Concentration - - Weight 82.6 kg (182 lb) 09/04/2020 8:38 AM CDT Height 154.9 cm (5' 1 ) 09/04/2020 8:38 AM CDT Body Mass Index 34.39 09/04/2020 8:38 AM CDT documented in this encounter Discharge Instructions * Discharge Instructions* Ann Manning RN - 09/04/2020 8:55 AM CDT Under 20 weeks gestation Pain: Call your compliance paralegal for worsening or new-onset abdominal pain, especially if associated with vaginal bleeding, fevers, or unusual discharge. Vaginal bleeding: Some spotting may occur if a vaginal exam or sexual activity has occurred in the past 24-48 hours. This is considered normal. Please come to the hospital for any vaginal bleeding soaking over 1 pad per hour. Come to the hospital for vaginal bleeding associated with dizziness, weakness, or fainting. Nausea and Vomiting : Nausea and vomiting is common in . Come to the hospital if you are unable to keep fluids down or if you are dizzy, weak, or fainting. Come to the the hospital if the vomiting is associated with fevers or abdominal pain. Do not hesitate to call your compliance paralegal or Labor and Delivery with questions. documented in this encounter Medications at Time of Discharge Medication Sig Dispensed Refills Start Date End Date omeprazole (PriLOSEC) 20 mg Capsule, Delayed Release(E.C.) Take 20 mg by mouth daily. hydroxychloroquine (PLAQUENIL) 200 mg tablet Take 200 mg by mouth daily. metroNIDAZOLE (FLAGYL) 500 mg tablet Take 1 Tablet (500 mg) by mouth 2 times daily for 7 days. 14 Tablet 09/04/2020 09/11/2020 valACYclovir (Valtrex) 500 mg tabletIndications:Herpes simplex vulvovaginitis Take 1 Tablet (500 mg) by mouth 2 times daily. 14 Tablet 6 08/16/2020 10/05/2020 ondansetron (Zofran ODT) 8 mg Tablet, Rapid Dissolve Dissolve 1 tablet on top of tongue then swallow with saliva every 8 hours as needed for nausea or vomiting 30 Tablet 08/16/2020 01/27/2022 sertraline (ZOLOFT) 25 mg tablet Take 25 mg by mouth daily. 09/18/2022 documented as of this encounter Progress Notes * Savanna Woo MD - 09/04/2020 8:57 AM CDT Patient feeling better. Wants to go home. Has appointment at [address] Delgado said could be rescheduled. Advised patient of this. Reviewed precautions Rx sent for Flagyl Follow up 1-2 weeks. Dispo: home in stable condition Medical decision making complexity: Moderate I spent 45 minutes with this encounter including observation, management, testing interpretation aswell as counseling. Of this time, greater than 50% was spent in counseling for nausea, vomiting, reassurance as well as coordination of care by ensuring follow up to be arranged. Savanna Woo MD * Savanna Woo MD - 09/04/2020 8:20 AM CDT Obstetric Triage History and Physical Exam Chief Complaint: nausea, vomiting, swelling, epigastric pain, swelling, vaginal discharge, spotting HPI: Carito Madison is a 30 y.o. female at 18w6d gestation with complaints of the above. She notes she has had daily nausea and vomiting. Her epigastric pain started a couple of days ago and radiates to her back and is not relieved with Tylenol. She also reports her swelling is in her legs and face and started a couple of days ago as well. Her discharge has been present for the past 1-2 weeks and is clear and associated with foul odor. She was evaluated for rupture of membranes and was negative. No itching. No heavy bleeding but does have a previa and reports she is on bed rest but states she gets up to walk every 30 minutes to prevent DVT. care has been with Dr. Delgado and [facility] complicated by Patient Active Problem List Diagnosis Code ??? Myalgia, unspecified site M79.10 ??? Arthralgia M25.50 ??? Weakness R53.1 ??? Lupus M32.9 ??? Low serum progesterone R79.89 ??? Herpes simplex vulvovaginitis A60.04 ??? Miscarriage, threatened, early O20.0 ??? Hemorrhage in early O20.9 OB History Para Term AB Living 3 0 2 0 SAB TAB Ectopic Multiple Live Births 2 # Outcome Date GA Lbr Rojas/2nd Weight Sex Delivery Anes PTL Lv 3 Current 2 SAB SAB 1 SAB SAB Past Medical History: Diagnosis Date ??? Louise's disease ??? Anxiety ??? Connective tissue disease ??? Depression ??? Fibromyalgia ??? Herpes ??? HTN (hypertension) ??? Hx of hyperprolactinemia ??? Lupus Past Surgical History: Procedure Laterality Date ??? HX APPENDECTOMY ??? HX MEDIAN NERVE REPAIR No family history on file. Social History Tobacco Use ??? Smoking status: Former Smoker Packs/day: 0.25 Types: Cigarettes Quit date: 12/11/2017 Years since quittin.7 ??? Smokeless tobacco: Never Used Substance Use Topics ??? Alcohol use: Not Currently Comment: socially No current facility-administered medications on file prior to encounter. Current Outpatient Medications on File Prior to Encounter Medication Sig Dispense Refill ??? sertraline (ZOLOFT) 25 mg tablet Take 25 mg by mouth daily. ??? omeprazole (PriLOSEC) 20 mg Capsule, Delayed Release(E.C.) Take 20 mg by mouth daily. ??? predniSONE (DELTASONE) 10 mg tablet Take 10 mg by mouth 2 times daily with meals. 7.5 mg qd ??? hydroxychloroquine (PLAQUENIL) 200 mg tablet Take 200 mg by mouth daily. ??? progesterone micronized (Prometrium) 200 mg Capsule Take 1 Capsule (200 mg) by mouth daily. 30 Capsule 4 Allergies Allergen Reactions ??? Penicillins Hives and Rash ??? Methylprednisolone Syncope ??? Escitalopram Rash Caused seizures Caused seizures Review of Systems: Gen: Deniesfevers or chills HEENT: denies congestion, rhinorrhea CV: Denies chest pain Pulm: Denies shortness of breath or cough GI: Denies diarrhea, constipation. : Denies dysuria Neuro: Denies headaches or visual changes Psych: Denies current symptoms of depression Skin: Denies rashes or lesions Physical Exam: Vitals: 09/04/20 0700 BP: 129/75 Resp: 16 Temp: 98.4 ??F (36.9 ??C) TempSrc: Oral SpO2: 100% General: alert, well appearing, in no apparent distress, anxious HEENT: NCAT CV: Mild tachycardia with pulse 102, reg rhythm Lungs: unlabored, regular rate, Abdomen: soft, nontender, nondistended, no abnormal masses, no epigastric pain tenderness, FHT present Extremities: no redness or tenderness in the calves or thighs, no edema : normal external genitalia and vagina without masses or lesions, clear-white discharge present in vault with odor Cervix: closed visually, no blood present. Deferred digital exam Neuro: awake, alert and grossly oriented, FHT: 141 on doppler Labs: Results for orders placed or performed during the hospital encounter of 09/04/20 (from the past 24 hour(s)) CBC WITH DIFFERENTIAL Result Value Ref Range WBC 9.8 4.5 - 10.5 K/uL RBC 3.93 3.90 - 4.90 M/uL HEMOGLOBIN 11.9 11.8 - 14.8 g/dL HEMATOCRIT 34.7 (L) 35.5 - 44.0 % MCV 88.3 82.0 - 99.0 fL MCH 30.2 27.8 - 34.5 pg MCHC 34.2 32.5 - 35.5 g/dL RDW 14.0 11.5 - 14.5 % PLATELETS 291 160 - 420 K/uL MPV 7.6 (L) 8.7 - 12.7 fL NEUTROPHILS 81 % LYMPHOCYTES 12 % MONOCYTES 5 % EOSINOPHILS 1 % BASOPHILS 1 % NEUTROPHIL ABSOLUTE 8.00 (H) 1.90 - 7.00 K/uL LYMPHOCYTE ABSOLUTE 1.20 0.70 - 4.50 K/uL MONOCYTE ABSOLUTE 0.50 0.10 - 1.30 K/uL EOSINOPHIL ABSOLUTE 0.10 0.00 - 0.70 K/uL BASOPHILS ABSOLUTE 0.00 0.00 - 0.20 K/uL Lab Review: Blood type A+ Assessment: 1. 30 y.o. female, at 18w6d with an Estimated Date of Delivery: 01/30/21 2. Vaginal discharge, suspect Bacterial vaginitis 3. Nausea, vomiting 4. Epigastric pain 5. Vaginal spotting Plan: 1. Swab collected although negative a couple days ago. Will treat empirically. May need GC/CT if not improving. 2. IVF and Benadryl/reglan for treatment. Declined zofran. Labs pending 3. Suspect either gallbladder etiology vs GERD vs ulcer. Labs pending and will try protonix 4. No bleeding on exam today Dispo: pending labs and treatment. Savanna Woo MD 09/04/2020 8:20 AM documented in this encounter Miscellaneous Notes * Care Plan - Ann Manning RN - 09/04/2020 8:44 AM CDT Patient arrived to L&D complaining of N/V, spotting, swelling in the feet, and a weird smell from her vagina. Patient instructed on how to obtain clean catch urine. Voided and collected. Donned gown. Patient verbalizes understanding. Vital signs taken. History obtained. , 18w6d. 0800 IV started labs sent. 0810 Dr Woo at bedside. SSE done, no bleeding noted. Swabs collected and sent 0830 patient sleeping 0900 Patient ready to go, IV removed discharge instructions given. Patient has appointment with today @ 0900. Patient on her way to see him. documented in this encounter Plan of Treatment Not on file documented as of this encounter Procedures Procedure Name Priority Date/Time Associated Diagnosis Comments BACTERIAL VAGINOSIS, PCR Routine 09/04/2020 8:18 AM CDT Miscarriage, threatened, early KINGS VAGINITIS, PCR Routine 8:18 AM CDT Miscarriage, threatened, early TRICHOMONAS VAGINALIS BY NUCLEIC ACID AMP Routine 09/04/2020 8:18 AM CDT Miscarriage, threatened, early TRICHOMONAS VAGINALIS BY NUCLEIC ACID AMP (FEMALE) Routine 09/04/2020 8:18 AM CDT Miscarriage, threatened, early CBC WITH DIFFERENTIAL Stat 09/04/2020 7:50 AM CDT COMPREHENSIVE METABOLIC PANEL Stat 09/04/2020 7:50 AM CDT documented in this encounter Results * TRICHOMONAS VAGINALIS BY NUCLEIC ACID AMP (FEMALE) (09/04/2020 8:18 AM CDT) TRICHOMONAS VAGINALIS BY PCR Not Detected Not Detected 09/06/2020 10:22 AM CDT [facility] Other, specify SWAB OF ENDOCERVIX / Unknown Collection / Unknown 09/04/2020 8:18 AM CDT 09/06/2020 10:11 AM CDT Savanna Woo MD MICROBIOLOGY - GENERAL ORDERABLES [facility]# [id number] [address] [place] [address] * BACTERIAL VAGINOSIS, PCR (09/04/2020 8:18 AM CDT) BACTERIAL VAGINOSIS BY PCR Not Detected Not Detected 09/06/2020 10:22 AM CDT [facility] Genital SPECIMEN FROM VAGINA / Unknown Collection / Unknown 09/04/2020 8:18 AM CDT 09/06/2020 9:04 AM CDT Savanna Woo MD MICROBIOLOGY - GENERAL ORDERABLES [facility]# [id number] [address] [place] [address] * KINGS VAGINITIS, PCR (09/04/2020 8:18 AM CDT) Pathologist [facility] KINGS SPECIES, NOT GLABRATA BY PCR Not Detected Not Detected 09/06/2020 10:22 AM CDT [facility] KINGS GLABRATA BY PCR NOT DETECTED Not Detected 09/06/2020 10:22 AM CDT [facility] Genital SPECIMEN FROM VAGINA / Unknown Collection / Unknown 09/04/2020 8:18 AM CDT 09/06/2020 9:04 AM CDT Savanna Woo MD MICROBIOLOGY - GENERAL ORDERABLES Performing Organization Address [facility]/ZIP Co de Phone Number [facility] [email or web address] [facility]# [id number] [facility] [place] [address] * (ABNORMAL) COMPREHENSIVE METABOLIC PANEL (09/04/2020 7:50 AM CDT) Pathologist [facility] SODIUM 135(L) 136 - 145 mmol/L 09/04/2020 8:38 AM CDT [facility] - [facility] POTASSIUM 3.4 3.4 - 5.1 mmol/L 09/04/2020 8:38 AM CDT [facility] - [facility] CHLORIDE 101 98 - 107 mmol/L 09/04/2020 8:38 AM CDT [facility] - [facility] CO2 23 22 - 29 mmol/L 09/04/2020 8:38 AM CDT [facility] - [facility] CALCIUM 9.5 8.6 - 10.4 mg/dL 09/04/2020 8:38 AM CDT [facility] - [facility] BUN 7 6 - 20 mg/dL 09/04/2020 8:38 AM [facility] CREATININE 0.54 0.51 - 0.95 mg/dL 09/04/2020 8:38 AM [facility] GLUCOSE 95 74 - 99 mg/dL 09/04/2020 8:38 AM [facility] TOTAL PROTEIN 6.6 6.3 - 8.7 g/dL 09/04/2020 8:38 AM [facility] ALBUMIN 3.7 3.5 - 5.2 g/dL 09/04/2020 8:38 AM [facility] BILIRUBIN TOTAL 0.2(L) 0.3 - 1.2 mg/dL 09/04/2020 8:38 AM [facility] ALKALINE PHOSPHATASE 53 40 - 150 U/L 09/04/2020 8:38 AM [facility] AST 21 0 - 33 U/L 09/04/2020 8:38 AM [facility] ALT 24 0 - 33 U/L 09/04/2020 8:38 AM [facility] GFR >60 mL/min/1.7 3 sq meter 09/04/2020 8:38 AM [facility] Comment: eGFR has not been [...] result. GFR, >60 mL/min/1.7 3 sq meter 09/04/2020 8:38 AM [facility] ANION GAP 11 8 - 16 mmol/L 09/04/2020 8:38 AM [facility] Blood Venipuncture / Unknown 09/04/2020 7:50 AM CDT 09/04/2020 8:04 AM CDT Savanna Woo MD CHEMISTRY ORD ERABLES [facility] CLIA# [id number] [address] [place] [address] * (ABNORMAL) CBC WITH DIFFERENTIAL (09/04/2020 7:50 AM CDT) Pathologist [facility] WBC 9.8 4.5 - 10.5 K/uL 09/04/2020 8:07 AM CDT [facility] SERVICES [facility] RBC 3.93 3.90 - 4.90 M/uL 09/04/2020 8:07 AM CDT [facility]OR[facility] HEMOGLOBIN 11.9 11.8 - 14.8 g/dL 09/04/2020 8:07 AM CDT [facility] HEMATOCRIT 34.7(L) 35.5 - 44.0 % 09/04/2020 8:07 AM CDT [facility] MCV 88.3 82.0 - 99.0 fL 09/04/2020 8:07 AM CDT [facility] MCH 30.2 27.8 - 34.5 pg 09/04/2020 8:07 AM CDT [facility] MCHC 34.2 32.5 - 35.5 g/dL 09/04/2020 8:07 AM CDT [facility] RDW 14.0 11.5 - 14.5 % 09/04/2020 8:07 AM CDT [facility] PLATELETS 291 160 - 420 K/uL 09/04/2020 8:07 AM CDT [facility] MPV 7.6(L) 8.7 - 12.7 fL 09/04/2020 8:07 AM CDT [facility] SERVICES [facility] NEUTROPHILS 81 % 09/04/2020 8:07 AM CDT [facility] LYMPHOCYTES 12 % 09/04/2020 8:07 AM CDT [facility] MONOCYTES 5 % 09/04/2020 8:07 AM CDT [facility] SERVICES [facility] EOSINOPHILS 1 % 09/04/2020 8:07 AM CDT [facility] BASOPHILS 1 % 09/04/2020 8:07 AM CDT [facility] NEUTROPHIL ABSOLUTE 8.00(H) 1.90 - 7.00 K/uL 09/04/2020 8:07 AM CDT [facility] LYMPHOCYTE ABSOLUTE 1.20 0.70 - 4.50 K/uL 09/04/2020 8:07 AM CDT [facility] MONOCYTE ABSOLUTE 0.50 0.10 - 1.30 K/uL 09/04/2020 8:07 AM CDT [facility] SERVICES [facility] EOSINOPHIL ABSOLUTE 0.10 0.00 - 0.70 K/uL 09/04/2020 8:07 AM CDT [facility] BASOPHILS ABSOLUTE 0.00 0.00 - 0.20 K/uL 09/04/2020 8:07 AM CDT [facility] Blood Venipuncture / Unknown 09/04/2020 7:50 AM CDT 09/04/2020 8:04 AM CDT Savanna Woo MD HEMATOLOGY OR DERABLES [facility] CLIA# [id number] [address] [place] [address] documented in this encounter Visit Diagnoses Diagnosis Miscarriage, threatened, early - Primary Threatened , unspecified as to episode of care documented in this encounter Administered Medications Inactive Administered Medications - up to 3 most recent administrations Medication Order MAR Action Action Date Dose Rate Site diphenhydrAMINE (BENADRYL) injection 50 mg 50 mg, IV, ONE TIME ONLY, 1 dose, On 09/04/20 at 0815, Routine Given 09/04/2020 8:11 AM CDT 50 mg lactated ringers bolus solution 1,000 mL 1,000 mL, IV, ONE TIME ONLY, 1 dose, On 09/04/20 at 0800, at 2,000 mL/hr, Administer over 30 Minutes, Routine New Bag 09/04/2020 8:07 AM CDT 1,000 mL 2000 mL/hr metoclopramide (REGLAN) 5 mg/mL injection 10 mg 10 mg, IV, ONE TIME ONLY, 1 dose, On 09/04/20 at 0815, Routine Given 09/04/2020 8:11 AM CDT 10 mg documented in this encounter Active and Recently Administered Medications Times are shown in CDT. Scheduled Medication Order 09/02/2020 09/03/2020 09/04/2020 diphenhydrAMINE (BENADRYL) injection 50 mg (COMPLETED) 50 mg, IV, ONE TIME ONLY, 1 dose, On 09/04/20 at 0815, Routine 0811 (Given - Provid er: Ann Manning RN) lactated ringers bolus solution 1,000 mL (COMPLETED) 1,000 mL, IV, ONE TIME ONLY, 1 dose, On 09/04/20 at 0800, at 2,000 mL/hr, Administer over 30 Minutes, Routine 0807 (New Bag - Prov ider: Ann Manning RN)0837 (Stopped - Provider: Ann Manning RN) metoclopramide (REGLAN) 5 mg/mL injection 10 mg (COMPLETED) 10 mg, IV, ONE TIME ONLY, 1 dose, On 09/04/20 at 0815, Routine 0811 (Given - Provid er: Ann Manning RN) pantoprazole (PROTONIX) injection 40 mg 40 mg, IV, ONE TIME ONLY, 1 dose, On 09/04/20 at 0830, Routine, Indication: Gastroesophageal reflux disease (GERD) 0830 (Due) documented in this encounter Care Teams Surgeon Chief Relationship Specialty Start Date End Date Brian Mon MD [address] [place] [address] PCP - General Internal Medicine 07/15/19 documented as of this encounter
--- OUTSIDE RECORDS SUMMARY | 2024-02-24 20:35 | XMS_ITS | Encounter Summary ---
Author Organization [facility] Address [address] [place] [address] Care Team Providers Care Talent Scout Name Role Phone Brian Mon MD Primary Care Provider Encounter Details Date Type Department Care Team (Late st Contact Info) Description 09/18/2022 Orders Only [facility] OBGYN [address] [facility] [address] [address] [facility] [address] [address] [place] [address] Iris Lucio RN [address] [place] [address] Social History Tobacco Use Types Packs/Day Years [...] on filedocumented in this encounter Care Teams Talent Scout Relationship Specialty Start Date End Date Brian Mon MD [address] [place] [id number] PCP - General Internal Medicine 07/15/19 documented as of this encounter
--- OUTSIDE RECORDS SUMMARY | 2024-02-24 20:35 | XMS_ITS | Encounter Summary ---
Author Organization [facility] Address [address] [place] [address] Care Team Providers Care Health Occupations Instructor Name Role Phone Brian Mon MD Primary Care Provider Reason for Visit * Reason Onset Date Comments Medication Follow Up 05/09/2023 Encounter Details Date Type Department Care Team (Late st Contact Info) Description 05/09/2023 Telephone [facility] OBGYN [address] [facility] [address] [place] [address] [place] [address] [facility] [address] [place] [address] Medication Follow Up Social History Tobacco Use Types Packs/Day Years [...] * Telephone Encounter - Elysia Causey - 05/09/2023 11:13 AM CDT Spoke with patient about the terconazole she advised that it was not working for her so she went [facility] and they gave her more diflucan and that seemed to work for her. She has no concerns atthis time documented in this encounter Plan of Treatment Not on file documented as of this encounter Visit Diagnoses Not on filedocumented in this encounter Care Teams Health Occupations Instructor Relationship Specialty Start Date End Date Brian Mon MD [address] [place] [address] PCP - General Internal Medicine 07/15/19 documented as of this encounter
--- OUTSIDE RECORDS SUMMARY | 2024-02-24 20:35 | XMS_ITS | Encounter Summary ---
Author Organization [facility] Address [address] [place] [address] Care Team Providers Care Third Officer Name Role Phone Brian Mon MD Primary Care Provider Encounter Details Date Type Department Care Team (Late st Contact Info) Description 04/11/[address] [facility] OBGYN [address] [facility] [address] [address] [facility] [address] [place] [address] [place] [address] [place] [address] Social History Tobacco Use Types Packs/Day Years [...] on filedocumented in this encounter Care Teams Third Officer Relationship Specialty Start Date End Date Brian Mon MD [address] [place] [phone] PCP - General Internal Medicine 07/15/19 documented as of this encounter
--- OUTSIDE RECORDS SUMMARY | 2024-02-24 20:35 | XMS_ITS | Encounter Summary ---
Author Organization [facility] Address [address] [place] [address] Care Team Providers Care Heater Tender Name Role Phone Brian Mon MD Primary Care Provider [phone] Reason for Visit * Reason Comments Routine Visit Encounter Details Date Type Department Care Team (Late st Contact Info) Description 11/12/2020 10:[address] [facility] OBGYN [address] [facility] [address] [address] [place] [address] [facility] [address] [address] 28 weeks gestation of (Primary Dx) Social History [...] Sign Reading Time Taken Comments Blood Pressure 102/68 11/12/2020 10:09 AM CDT Pulse - - Temperature - - Respiratory Rate - - Oxygen Saturation - - Inhaled Oxygen Concentration - - Weight 83.5 kg (184 lb) 11/12/2020 10:09 AM CDT Height - - Body Mass Index 32.59 10/14/2020 3:53 PM CDT documented in this encounter Progress Notes * Sheldon Delgado MD - 11/12/2020 10:29 AM CDT [facility] Obstetrical Clinic Visit 30 y.o. S: This patient denies bleeding, loss of fluid, cramping and emesis. O: Vitals: 11/12/20 1009 BP: 102/68 Fundus is normal in size. heart tones are within normal limits. Her abdomen is , soft and not tender. There is no evidence of a DVT. A/P EDC- 01/30/2021 Prior : This patient had a spontaneous miscarriage at 12 weeks. She had a spontaneous miscarriage at 6 weeks. Herpes history: YES G1PO Neg AFP GCT Normal per patient. Done at [facility]. She is going to [facility] for her Care. High Risk Category Placenta Previa-anterior and vascular. Patient is on pelvic rest. HERPES LUPUS I would like to wean this patient off of her prednisone and a baby aspirin prior to delivery. ADDISONS Baby ASA On prednisone/hydroxychloroquine and Zoloft. She did take progesterone until 12 weeks gestation. She is being followed in the maternal- medicine Center at [facility] because it is close to her house. documented in this encounter Plan of Treatment Not on file documented as of this encounter Visit Diagnoses Diagnosis 28 weeks gestation of - Primary state, incidental documented in this encounter Care Teams Heater Tender Relationship Specialty Start Date End Date Brian Mon MD [address] [place] [address] PCP - General Internal Medicine 07/15/19 documented as of this encounter
--- OUTSIDE RECORDS SUMMARY | 2024-02-24 20:35 | XMS_ITS | Encounter Summary ---
Author Organization [facility] Address [address] [place] [address] Care Team Providers Care Cable Installer Name Role Phone Brian Mon MD Primary Care Provider [phone] Reason for Visit * Reason Onset Date Comments Bladder Infection 04/09/2023 Encounter Details Date Type Department Care Team (Late st Contact Info) Description 04/09/2023 Nurse Triage [facility] Clinical Support [address] [place] [address] Matilde Iyer RN Social History Tobacco Use [...] Telephone Encounter - Matilde Iyer RN - 04/09/2023 7:39 PM CST Carito Madison calls after hours exchange with concern for UTI s/s. Reports dysuria, urgency, frequency, incomplete emptying. Currently covid+ in isolation. Denies fever. Reports body aches; denies flank pain. Requests abx. Requests RN to contact provider commissioning manager, Dr. Morales. Patient reports taking cephalexin in the past for UTI. Per Dr. Morales, keflex 500mg BID x 5 days. If patient is not improved with abx, needs to be seen in office. Notified patient of POC. Rx sent. Patient verbalized understanding and is agreeable to care advice and dispo. Reason for Disposition [1] SEVERE pain with urination (e.g., excruciating) AND [2] not improved after 2 hours of pain medicine and Sitz bath Protocols used: Urination Pain - Female-A-AH AZZO WORKER APPRENTICE documented in this encounter Plan of Treatment Not on file documented as of this encounter Visit Diagnoses Not on filedocumented in this encounter Care Teams Cable Installer Relationship Specialty Start Date End Date Brian Mon MD [address] [place] [address] PCP - General Internal Medicine 07/15/19 documented as of this encounter
--- OUTSIDE RECORDS SUMMARY | 2024-02-24 20:35 | XMS_ITS | Encounter Summary ---
Author Organization [facility] Address [address] [place]: Epic Prelude ADT [place] [address] Care Team Providers Care Twister Doffer Name Role Phone Brian Mon MD Primary Care Provider Encounter Details Date Type Department Care Team (Latest Contact Info) Description 09/04/2020 Travel Social History Tobacco Use Types Packs/Day [...] on filedocumented in this encounter Care Teams Twister Doffer Relationship Specialty Start Date End Date Brian Mon MD [address] [place] [address] PCP - General Internal Medicine 07/15/19 documented as of this encounter
--- OUTSIDE RECORDS SUMMARY | 2024-02-24 20:35 | XMS_ITS | Encounter Summary ---
Author Organization [facility] Address [address] [place] [address] Care Team Providers Care Technical Support Associate Name Role Phone Brian Mon MD Primary Care Provider [phone] Reason for Visit * Reason Onset Date Comments Bladder Infection 09/15/2022 Encounter Details Date Type Department Care Team (Late st Contact Info) Description 09/15/2022 Telephone [facility] OBGYN [address] [facility] [address] [address] [facility] [address] [address] [place] [address] [place] [address] Bladder Infection Social History Tobacco Use Types Packs/Day [...] Telephone Encounter - Iris Lucio RN - 09/15/2022 10:57 AM CDT Pt states she has a UTI and would like some abx sent to her pharmacy. She has tried Diflucan and Metronidazole without relief so she is certain it is a UTI. Spoke with provider and will send Cipro topharmacy of choice. Pt to call office for appt if sx persist or worsen. documented in this encounter Plan of Treatment Not on file documented as of this encounter Visit Diagnoses Not on filedocumented in this encounter Care Teams Technical Support Associate Relationship Specialty Start Date End Date Brian Mon MD [address] [place] [address] PCP - General Internal Medicine 07/15/19 documented as of this encounter
--- OUTSIDE RECORDS SUMMARY | 2024-02-24 20:35 | XMS_ITS | Encounter Summary ---
Author Organization [facility] Address [address] [place] [address] Care Team Providers Care Metal Expediter Name Role Phone Brian Mon MD Primary Care Provider Reason for Visit * Reason Onset Date Comments Appt 11/21/2022 Encounter Details Date Type Department Care Team (Late st Contact Info) Description 11/21/2022 Telephone [facility] Urology [facility] [address] [facility] [address] [place] [address] [place] [address] [facility] [address] [place] [address] Appt Social History Tobacco Use Types Packs/Day Years [...] Miscellaneous Notes * Telephone Encounter - Мария Hwang - 11/22/2022 8:21 AM CDT Patient called, called pt back and left a voicemail * Telephone Encounter - Мария Hwang - 11/21/2022 11:15 AM CDT Patient called for an appt called pt back and left a voicemail documented in this encounter Plan of Treatment Not on file documented as of this encounter Visit Diagnoses Not on filedocumented in this encounter Care Teams Metal Expediter Relationship Specialty Start Date End Date Brian Mon MD [address] [place] [address] PCP - General Internal Medicine 07/15/19 documented as of this encounter
--- OUTSIDE RECORDS SUMMARY | 2024-02-24 20:35 | XMS_ITS | Encounter Summary ---
Author Organization [facility] Address [address] [place] [address] Care Team Providers Care Analyst Geochemical Prospecting Name Role Phone Brian Mon MD Primary Care Provider Reason for Visit * Reason Comments Med Refill Encounter Details Date Type Department Care Team (Late st Contact Info) Description 12/09/2022 Refill [facility] OBGYN [address] [facility] [address] [address] [facility] [address] [place] [address] [place] [address] [place] [address] Social History Tobacco Use Types [...] on filedocumented in this encounter Care Teams Analyst Geochemical Prospecting Relationship Specialty Start Date End Date Brian Mon MD [address] [place] [address] PCP - General Internal Medicine 07/15/19 documented as of this encounter
--- OUTSIDE RECORDS SUMMARY | 2024-02-24 20:35 | XMS_ITS | Encounter Summary ---
Author Organization [facility] Address [address] [place] [address] Care Team Providers Care Senior Research Consultant Name Role Phone Brian Mon MD Primary Care Provider Encounter Details Date Type Department Care Team (Late st Contact Info) Description 02/09/2023 External Device Data [facility] ABSTRACTION Provider, Abstract [...] filedocumented in this encounter Care Teams Senior Research Consultant Relationship Specialty Start Date End Date Brian Mon MD [address] [place] [address] PCP - General Internal Medicine 07/15/19 documented as of this encounter
--- OUTSIDE RECORDS SUMMARY | 2024-02-24 20:35 | XMS_ITS | Encounter Summary ---
Author Organization [facility] Address [address] [place]: Epic Prelude ADT [place] [address] Care Team Providers Care Business System Consultant Name Role Phone Brian Mon MD Primary Care Provider [phone] Encounter Details Date Type Department Care Team (Latest Contact Info) Description 09/10/2020 Travel Social History Tobacco Use Types Packs/Day [...] filedocumented in this encounter Care Teams Business System Consultant Relationship Specialty Start Date End Date Brian Mon MD [address] [place] [address] PCP - General Internal Medicine 07/15/19 documented as of this encounter
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
--- OUTSIDE RECORDS SUMMARY | 2024-02-24 20:35 | XMS_ITS | Encounter Summary ---
Author Organization [facility] Address [address] [place] [address] Care Team Providers Care Echocardiography Technologist Name Role Phone Brian Mon MD Primary Care Provider Reason for Referral * Laboratory Services (Routine) - Closed Specialty Diagnoses / Procedures Referred By Contdouglas t Referred To Contact Diagnoses Screening for STDs (sexually transmitted diseases) Vaginal infection Procedures VAGINOSIS/V[place] [address] [place] [address] Referral ID Status Reason Start Date Expiration Date Visits Re quested Visits Authorized [id number] Closed 03/15/2022 04/15/2023 1 1 HER MACHINE Reason for Visit * Reason Comments Vaginal Itching vaginal burning vaginal irration Encounter Details Date Type Department Care Team (Late st Contact Info) Description 03/15/2022 11:45 AM BUNCHER MACHINE Office Visit [facility] OBGYN [address] [place] [address] [place] [address] [place] [address] Screening for STDs (sexually transmitted diseases) (Primary Dx); Vaginal infection; HSV infection; UTI symptoms Social History Tobacco Use Types [...] Coronavirus/COVID-19? No / Unsure 03/15/2022 11:35 AM BUNCHER MACHINE documented as of this encounter Last Filed Vital Signs Vital Sign Reading Time Taken Comments Blood Pressure 118/76 03/15/2022 11:56 AM BUNCHER MACHINE Pulse - - Temperature - - Respiratory Rate - - Oxygen Saturation - - Inhaled Oxygen Concentration - - Weight 78.5 kg (173 lb) 03/15/2022 11:56 AM BUNCHER MACHINE Height 160 cm (5' 3 ) 03/15/2022 11:56 AM BUNCHER MACHINE Body Mass Index 30.65 03/15/2022 11:56 AM BUNCHER MACHINE documented in this encounter Progress Notes * Lisette De Santiago, KINGA - 03/15/2022 1:27 PM CST Images from the original note were not included. CC: vaginal irritation and pain HPI: Carito Madison is a 31 y.o. , presenting to the office with complaints of vaginal irritation and pain. She first noticed symptoms several weeks ago. Was treated for yeast with Diflucan, she states her symptoms have not improved. Does have a hx of HSV, wondering if she could have a breakout. States she is having bad vaginal pain. She states it just hurts on the outside and hurts with urination. Denies vaginal odor and discharge. OPERATIONS ASSISTANT History: Menses: regular, but heavy SA: yes, male partner Contraception: none Last pap: 01/29/2019, NIL Hx of HSV OB History Para Term AB Living 3 0 0 0 2 0 SAB IAB Ectopic Multiple Live Births 2 0 0 0 0 # Outcome Date GA Lbr Rojas/2nd Weight Sex Delivery Anes PTL Lv 3 2 SAB SAB 1 SAB SAB Current Outpatient Medications: ??? clotrimazole-betamethasone (LOTRISONE) 1-0.05 % Cream, Apply to affected area 2 times daily for7 days., Disp: 15 Gram, Rfl: 0 ??? valACYclovir (Valtrex) 500 mg tablet, Take 1 Tablet (500 mg) by mouth daily., Disp: 90 Tablet, Rfl: 1 ??? valACYclovir (Valtrex) 500 mg tablet, Take 1 Tablet (500 mg) by mouth 2 times daily., Disp: 14 Tablet, Rfl: 6 ??? predniSONE (DELTASONE) 5 mg tablet, Take 5 mg by mouth daily., Disp: , Rfl: ??? sertraline (ZOLOFT) 25 mg tablet, Take 25 mg by mouth daily., Disp: , Rfl: ??? omeprazole (PriLOSEC) 20 mg Capsule, Delayed Release(E.C.), Take 20 mg by mouth daily., Disp: ,Rfl: ??? hydroxychloroquine (PLAQUENIL) 200 mg tablet, Take 200 mg by mouth daily., Disp: , Rfl: Allergies Allergen Reactions ??? Penicillins Hives and Rash ??? Methylprednisolone Syncope ??? Metoclopramide Hcl Other (See Comments) nausea ??? Sulfamethoxazole-Trimethoprim Other (See Comments) Cannot take bactrim because of lupus ??? Escitalopram Rash Caused seizures Caused seizures ??? Nitrofurantoin Monohyd/M-Cryst Itching ROS Review of Systems Constitutional: Negative. HENT: Negative. Eyes: Negative. Respiratory: Negative. Cardiovascular: Negative. Gastrointestinal: Negative. Musculoskeletal: Negative. Skin: Negative. Neurological: Negative. Endo/Heme/Allergies: Negative. Psychiatric/Behavioral: Negative. : vaginal pain and irritation, denies abnormal vaginal discharge and odor. No pelvic pain. Physical Exam: Vitals: 03/15/22 1156 BP: 118/76 Weight: 78.5 kg (173 lb) Height: 5' 3 (1.6 m) Body mass index is 30.65 kg/m??. GEN: NAD, well-developed PULM: Regular breathing rate and effort ABD: soft, nondistended NEURO: A&Ox3 PELVIC: HSV ulcer present at between labia majora near the top, tender to touch. Some external irritation. Vaginal canal has a white vaginal discharge. Cervix is WNL without lesions. No CMT tenderness. Uterus and adnexa both WNL. Physical Exam Genitourinary: Labs: Results for orders placed or performed in visit on 03/15/22 POC URINALYSIS DIPSTICK AUTOMATED Result Value Ref Range COLOR UA POC Yellow Pale to Dark Yellow CLARITY UA POC Clear Clear GLUCOSE UA POC Negative Negative, Normal BILIRUBIN UA POC Negative Negative KETONES UA POC Negative Negative SPECIFIC GRAVITY UA POC >=1.030 1.000 - 1.030 BLOOD UA POC Negative Negative PH UA POC 5.0 5.0 - 8.0 PROTEIN UA POC Negative Negative UROBILINOGEN UA POC 0.2 <2.0 mg/dL NITRITE UA POC Negative Negative LEUKOCYTE ESTERASE UA POC Trace (A) Negative KIT LOT NUMBER POC 110,047 KIT EXP DATE POC 06/25/2022 ASSESSMENT/PLAN: Encounter Diagnoses Code Name Primary? Z11.3 Screening for STDs (sexually transmitted diseases) Yes ??? N76.0 Vaginal infection ??? B00.9 HSV infection ??? R39.9 UTI symptoms - HSV ulceration on exam. Encouraged her to take Valtrex BID for 5 days, she has this script at home - Strong hx of bacterial vaginosis, no improvement with internal irritation with Diflucan. Will send vaginitis panel to rule out infections - No UTI on urinalysis RTC for Well Woman Exam or prn HER MACHINE documented in this encounter Plan of Treatment Not on file documented as of this encounter Procedures Procedure Name Priority Date/Time Associated Diagnosis Comments POC URINALYSIS DIPSTICK AUTOMATED Routine 03/15/2022 12:51 PM BUNCHER MACHINE UTI symptoms documented in this encounter Results * (ABNORMAL) POC URINALYSIS DIPSTICK AUTOMATED (03/15/2022 12:51 PM BUNCHER MACHINE) Pathologist [facility] COLOR UA POC Yellow Pale to Dark Yellow [facility] OBGYN [address] CLARITY UA POC Clear Clear [facility] OBGYN [address] GLUCOSE UA POC Negative Negative, Normal [facility] OBGYN [address] BILIRUBIN UA POC Negative Negative [facility] OBGYN [address] KETONES UA POC Negative Negative [facility] OBGYN [address] SPECIFIC GRAVITY UA POC >=1.030 1.000 - 1.030 [facility] OBGYN [address] BLOOD UA POC Negative Negative [facility] O BGYN [address] PH UA POC 5.0 5.0 - 8.0 [facility] OBGY N [address] PROTEIN UA POC Negative Negative [facility] OBGYN [address] UROBILINOGEN UA POC 0.2 <2.0 mg/dL [facility] OBGYN [address] NITRITE UA POC Negative Negative [facility] OBGYN [address] LEUKOCYTE ESTERASE UA POC Trace(A) Negative [facility] OBGYN [address] [address] KIT LOT NUMBER POC 110,047 [facility] OBGYN [address] [address] KIT EXP DATE POC 06/25/2022 [facility] OBGYN [address] [address] Urine 03/15/2022 12:5 1 PM BUNCHER MACHINE Lisette De Santiago NP POINT OF CARE TEST ING [facility] OBGYN [address] [address] CLIA [id number] [address] [place] [address] * (ABNORMAL) VAGINOSIS/VAGINITIS PANEL PLUS (03/15/2022 12:50 PM BUNCHER MACHINE) BACTERIAL VAGINOSIS NEGATIVE NEGATIVE [facility] PATTI SPECIES DETECTED(A) NOT DETECTED [facility] PATTI GLABRATA NOT DETECTED NOT DETECTED [facility] Comment: Patti species C. albicans, C. tropicalis, C. parapsilosis, and/or C. dubliniensis can be detected, but not differentiated, in the Patti spp. result. TRICHOMONAS VAGINALIS (TV), TMA NOT DETECTED NOT DETECTED [facility] C TRAC RNA NOT DETECTED NOT DETECTED [facility] N.GONORRHOEAE RNA, TMA NOT DETECTED NOT DETECTED [facility] Comment: For additional information, please refer to https://education.[employer] ([employer])/faq/RMK105 (This link is being provided for information/ educational purposes only.) Test Performed at: [facility] [address] [place], [place] ??[address] Dima Ogden D.O., MPH Genital SPECIMEN FROM VAGINA / Unknown 03/15/2022 12:50 PM BUNCHER MACHINE 03/15/2022 8:10 PM BUNCHER MACHINE Lisette De Santiago NP MICROBIOLOGY - GEN ERAL ORDERABLES [facility] [phone] [facility] [address] [place] [address] documented in this encounter Visit Diagnoses Diagnosis Screening for STDs (sexually transmitted diseases)- Primary Screening examination for venereal disease Vaginal infection Vaginitis and vulvovaginitis, unspecified HSV infection Herpes simplex without mention of complication UTI symptoms documented in this encounter Care Teams Echocardiography Technologist Relationship Specialty Start Date End Date Brian Mon MD [address] [place] [address] PCP - General Internal Medicine 07/15/19 documented as of this encounter
--- OUTSIDE RECORDS SUMMARY | 2024-02-24 20:35 | XMS_ITS | Encounter Summary ---
Author Organization [facility] Address [address] [place] [address] Care Team Providers Care Pantograph Ii Engraver Name Role Phone Brian Mon MD Primary Care Provider Reason for Visit * Reason Comments Yeast Infection heavy bleeding Changing pads every 30 mins/huge blood clots Encounter Details Date Type Department Care Team (Late st Contact Info) Description 01/27/2022 8:15 AM VARNISH MELTER HELPER Office Visit [facility] OBGYN [address] [facility] [address] [address] [facility] [address] [place] [address] [place] [address] [place] [address] Yeast infection (Primary Dx); Vaginal infection; Menorrhagia with regular cycle; Herpes Social History Tobacco Use Types Packs/Day Years [...] Coronavirus/COVID-19? No / Unsure 01/27/2022 8:17 AM VARNISH MELTER HELPER documented as of this encounter Last Filed Vital Signs Vital Sign Reading Time Taken Comments Blood Pressure 116/76 01/27/2022 8:27 AM VARNISH MELTER HELPER Pulse - - Temperature - - Respiratory Rate - - Oxygen Saturation - - Inhaled Oxygen Concentration - - Weight 78.5 kg (173 lb) 01/27/2022 8:27 AM VARNISH MELTER HELPER Height 160 cm (5' 3 ) 01/27/2022 8:27 AM VARNISH MELTER HELPER Body Mass Index 30.65 01/27/2022 8:27 AM VARNISH MELTER HELPER documented in this encounter Progress Notes * Lisette De Santiago, KINGA - 01/27/2022 9:28 AM CST CC: vaginal itching; heavy periods HPI: Carito Madison is a 31 y.o. , presenting to the office with complaints of vaginal itching. She first noticed symptoms days ago. She has been itching for several days. She denies abnormal vaginal odor. She does have a thin white discharge, unsure if she has BV. She states she has a strong history of this. She states her 1 year old is currently being treated for a external yeast infection. Unsure if she could also have one. She also states her periods are heavy and painful. They are regulated, come at the same time every month. Last 5-7 days in duration. She states she goes through pads every 30 minutes some days. Currently not on control. Does not want to do anything hormonal due to the side effects. Also has a hx of HSV. She states she has felt like she has been getting several breakouts recently.Curious if she needs to switch to suppressive therapy, takes Valtrex as needed for outbreaks. SUPPORT ASSISTANT History: Menses: regular, but heavy SA: [...] SAB 1 SAB SAB Current Outpatient Medications: metroNIDAZOLE (Nuvessa) 1.3 % (65 mg/5 gram) Gel, Insert 5 Grams vaginally one time only for 1 dose., Disp: 5 Gram, Rfl: 0 fluconazole (DIFLUCAN) 150 mg tablet, Take 1 Tablet (150 mg) by mouth one time only for 1 dose., Disp: 1 Tablet, Rfl: 1 valACYclovir (Valtrex) 500 mg tablet, Take 1 Tablet (500 mg) by mouth daily., Disp: 90 Tablet, Rfl:1 clotrimazole-betamethasone (LOTRISONE) 1-0.05 % Cream, Apply to affected area 2 times daily for 7 days., Disp: 45 Gram, Rfl: 0 [DISCONTINUED] vit-iron fumarate-fa (DARIEN ) 28 mg iron- 800 mcg Tablet, Take 1 Tablet by mouth daily., Disp: , Rfl: [DISCONTINUED] aspirin (ECOTRIN EC) 81 mg Tablet, Delayed Release (E.C.), Take 81 mg by mouth daily., Disp: , Rfl: valACYclovir (Valtrex) 500 mg tablet, Take 1 Tablet (500 mg) by mouth 2 times daily., Disp: 14 Tablet, Rfl: 6 predniSONE (DELTASONE) 5 mg tablet, Take 5 mg by mouth daily., Disp: , Rfl: [DISCONTINUED] ondansetron (Zofran) 8 mg Tablet, Take 1 Tablet (8 mg) by mouth every 8 hours as needed for Nausea/Emesis., Disp: 30 Tablet, Rfl: 6 [DISCONTINUED] ondansetron (Zofran ODT) 8 mg Tablet, Rapid Dissolve, Dissolve 1 tablet on top of tongue then swallow with saliva every 8 hours as needed for nausea or vomiting, Disp: 30 Tablet, Rfl: 0 sertraline (ZOLOFT) 25 mg tablet, [...] Negative. Endo/Heme/Allergies: Negative. Psychiatric/Behavioral: Negative. : vaginal itching and irritation, heavy menses, frequent outbreaks. Physical Exam: Vitals: 01/27/22 0827 BP: 116/76 Weight: 78.5 kg (173 lb) Height: 5' 3 (1.6 m) Body mass index is 30.65 kg/m??. GEN: NAD, well-developed PULM: Regular breathing rate and effort ABD: soft, nondistended NEURO: A&Ox3 PELVIC: Labia majora and minora are erythmatic, signs of vulvar dermatitis/external yeast. Vaginal canal has a thin white vaginal discharge. No CMT tenderness. Uterus and adnexa both WNL. Labs: No results found for this visit on 01/27/22. ASSESSMENT/PLAN: Encounter Diagnoses Code Name Primary? B37.9 Yeast infection Yes N76.0 Vaginal infection N92.0 Menorrhagia with regular cycle B00.9 Herpes Yeast Infection/Vaginal Infection - exam suggestive of yeast/bacterial vaginosis. Will treat for both. - Diflucan and Nuvessa sent to pharmacy. She does not tolerate Metronidazole well. - Currently on Plaquenil, aware she should not take this with Diflucan. She states she normally holds her dose for the day - Lotrisone sent for external irritation, will take BID for 7 days - Vaginal habits reviewed. Encouraged probiotic use - Vaginitis panel not sent, she does not have insurance - Follow up if no symptom resolution Menorrhagia with regular cycle - discussed her cycles in great detail - scheduled Motrin q6h can help if she starts it the night before her period, however due to the amount of bleeding she is having I do think she needs a ultrasound - She is going to try the Motrin first, will get a ultrasound scheduled if it does not help. Did not schedule at this time due to possible cost but does state she will get it if her periods don't improve. - I also discussed that a IUD would likely help with her symptoms. Will consider this but is skeptical due to the hormones Herpes - can start suppressive Valtrex therapy due to frequent outbreaks. Will take 500 mg Valtrex daily, script sent to pharmacy RTC for Well Woman Exam or Ultrasound ISH MELTER HELPER documented in this encounter Plan of Treatment Not on file documented as of this encounter Visit Diagnoses Diagnosis Yeast infection- Primary Other and unspecified mycoses Vaginal infection Vaginitis and vulvovaginitis, unspecified Menorrhagia with regular cycle Excessive or frequent menstruation Herpes Herpes simplex without mention of complication documented in this encounter Care Teams Pantograph Ii Engraver Relationship Specialty Start Date End Date Brian Mon MD [address] [place] [address] PCP - General Internal Medicine 07/15/19 documented as of this encounter
--- OUTSIDE RECORDS SUMMARY | 2024-02-24 20:35 | XMS_ITS | Encounter Summary ---
Author Organization [facility] Address [address] [place] [address] Care Team Providers Care Track Broom Operator Name Role Phone Brian Mon MD Primary Care Provider [phone] Encounter Details Date Type Department Care Team (Late st Contact Info) Description 06/05/2023 External Device Data STL ABSTRACTION Provider, Abstract [...] on filedocumented in this encounter Care Teams Track Broom Operator Relationship Specialty Start Date End Date Brian Mon MD [address] [place] [address] PCP - General Internal Medicine 07/15/19 documented as of this encounter
--- OUTSIDE RECORDS SUMMARY | 2024-02-24 20:35 | XMS_ITS | Encounter Summary ---
Author Organization [facility] Address [address] Alicea: Epic Prelude ADT [place] [address] Care Team Providers Care Barrel Lathe Operator Name Role Phone Brian Mon MD Primary Care Provider Encounter Details Date Type Department Care Team (Latest Contact Info) Description 11/02/2020 Travel Social History Tobacco Use Types Packs/Day [...] on filedocumented in this encounter Care Teams Barrel Lathe Operator Relationship Specialty Start Date End Date Brian Mon MD [address] [place] [address] PCP - General Internal Medicine 07/15/19 documented as of this encounter
--- OUTSIDE RECORDS SUMMARY | 2024-02-24 20:35 | XMS_ITS | Encounter Summary ---
Author Organization [facility] Address [address] [place] [address] Care Team Providers Care Surveyor Instrument Assistant Name Role Phone Brian Mon MD Primary Care Provider [phone] Encounter Details Date Type Department Care Team (Late st Contact Info) Description 03/15/2022 Orders Only [facility] OBGYN [address] [facility] [address] [place] [address] Adelita Gudino Screening for STDs (sexually transmitted diseases); Vaginal infection Social History Tobacco Use Types Packs/Day [...] Coronavirus/COVID-19? No / Unsure 03/15/2022 11:35 AM MORTAR MAN documented as of this encounter Plan of Treatment Not on file documented as of this encounter Procedures Procedure Name Priority Date/Time Associated Diagnosis Comments VAGINOSIS/VAGINITIS PANEL PLUS Routine 03/15/2022 12:50 PM MORTAR MAN Screening for STDs (sexually transmitted diseases) Vaginal infection documented in this encounter Results * (ABNORMAL) VAGINOSIS/VAGINITIS PANEL PLUS (03/15/2022 12:50 PM MORTAR MAN) BACTERIAL VAGINOSIS NEGATIVE NEGATIVE [facility] PATTI SPECIES DETECTED(A) NOT DETECTED [facility] PATTI GLABRATA NOT DETECTED NOT DETECTED [facility] Comment: Patti species C. albicans, C. tropicalis, C. parapsilosis, and/or C. dubliniensis can be detected, but not differentiated, in the Patti spp. result. TRICHOMONAS VAGINALIS (TV), TMA NOT DETECTED NOT DETECTED [facility] C TRAC RNA NOT DETECTED NOT DETECTED [facility] N.GONORRHOEAE RNA, TMA NOT DETECTED NOT DETECTED [facility] Comment: For additional information, please refer to https://education.WebNotes/faq/MUC525 (This link is being provided for information/ educational purposes only.) Test Performed at: [facility] [address] [place], [place] ??[phone] Dima Ogden D.O., MPH Genital SPECIMEN FROM VAGINA / Unknown 03/15/2022 12:50 PM MORTAR MAN 03/15/2022 8:10 PM MORTAR MAN Lisette De Santiago NP MICROBIOLOGY - GEN ERAL ORDERABLES [facility] [phone] [facility] [address] [place] [address] documented in this encounter Visit Diagnoses Diagnosis Screening for STDs (sexually transmitted diseases) Screening examination for venereal disease Vaginal infection Vaginitis and vulvovaginitis, unspecified documented in this encounter Care Teams Surveyor Instrument Assistant Relationship Specialty Start Date End Date Brian Mon MD [address] [place] [address] PCP - General Internal Medicine 07/15/19 documented as of this encounter
--- OUTSIDE RECORDS SUMMARY | 2024-02-24 20:35 | XMS_ITS | Encounter Summary ---
Author Organization [facility] Address [address] [place] [address] Care Team Providers Care Marketing Sales Manager Name Role Phone Brian Mon MD Primary Care Provider Reason for Visit * Reason Onset Date Comments Medication Refill 06/18/2023 Encounter Details Date Type Department Care Team (Late st Contact Info) Description 06/18/2023 Refill [facility] OBGYN [address] [facility] [id number] [place] [address] [address] [place] [address] [place] [address] [facility] [address] [place] [address] Vulvar ulcer (Primary Dx); Herpes Social History Tobacco Use Types Packs/Day [...] Telephone Encounter - Sheldon Delgado MD - 06/18/2023 4:31 PM CDT Valtrex and lidocaine sent to the patient's pharmacy. documented in this encounter Plan of Treatment Not on file documented as of this encounter Visit Diagnoses Diagnosis Vulvar ulcer- Primary Ulceration of vulva, unspecified Herpes Herpes simplex without mention of complication documented in this encounter Care Teams Marketing Sales Manager Relationship Specialty Start Date End Date Brian Mon MD [address] [place] [address] PCP - General Internal Medicine 07/15/19 documented as of this encounter
--- OUTSIDE RECORDS SUMMARY | 2024-02-24 20:35 | XMS_ITS | Encounter Summary ---
Author Organization [facility] Address [address] [place] [address] Care Team Providers Care Institution Director Name Role Phone Brian Mon MD Primary Care Provider [phone] Reason for Visit * Reason Onset Date Comments Medication Refill 03/13/2022 Encounter Details Date Type Department Care Team (Late st Contact Info) Description 03/13/2022 Refill [facility] OBGYN [address] [facility] [address] [address] [address] [place] [address] Lisette De Santiago RN Social History Tobacco Use Types Packs/Day [...] Coronavirus/COVID-19? No / Unsure 03/01/2022 1:42 PM TECHNICAL OPERATIONS VICE PRESIDENT documented as of this encounter Plan of Treatment Not on file documented as of this encounter Visit Diagnoses Not on filedocumented in this encounter Care Teams Institution Director Relationship Specialty Start Date End Date Brian Mon MD [address] [place] [phone] PCP - General Internal Medicine 07/15/19 documented as of this encounter
--- OUTSIDE RECORDS SUMMARY | 2024-02-24 20:36 | XMS_ITS | Encounter Summary ---
Author Organization [facility] Address [address] [place] [address] Care Team Providers Care Lawyer Name Role Phone Brian Mon MD Primary Care Provider Reason for Referral * Laboratory Services (Routine) - Closed Specialty Diagnoses / Procedures Referred By Contac t Referred To Contact Diagnoses Vaginal discharge Procedures VAGINOSIS/V[place] [address] [place] [address] Referral ID Status Reason Start Date Expiration Date Visits Re quested Visits Authorized [id number] Closed 08/31/2020 10/01/2021 1 1 Reason for Visit * Reason Comments leaking fluid * Laboratory Services (Routine) - Closed Specialty Diagnoses / Procedures Referred By Contdouglas freeman Referred To Contact Diagnoses Vaginal discharge Procedures VAGINOSIS/V[place] [address] [place] [address] Referral ID Status Reason Start Date Expiration Date Visits Re quested Visits Authorized [id number] Closed 08/31/2020 10/01/2021 1 1 Encounter Details Date Type Department Care Team (Late st Contact Info) Description 08/31/2020 2:15 PM CDT visit [facility] OBGYN [address] [place] [address] Lisette De Santiago, KINGA [address] [place] [address] 18 weeks gestation of (Primary Dx); Vaginal discharge; Placenta previa in second trimester Social History Tobacco Use [...] have Coronavirus / COVID-19? No / Unsure 08/31/2020 1:50 PM CDT documented as of this encounter Last Filed Vital Signs Vital Sign Reading Time Taken Comments Blood Pressure 126/62 08/31/2020 2:02 PM CDT Pulse - - Temperature - - Respiratory Rate - - Oxygen Saturation - - Inhaled Oxygen Concentration - - Weight 82.6 kg (182 lb) 08/31/2020 2:02 PM CDT Height - - Body Mass Index 32.24 08/17/2020 7:32 AM CDT documented in this encounter Progress Notes * Lisette De Santiago, KINGA - 08/31/2020 3:49 PM CDT S: Here for visit. Denies cramping and bleeding. She states she has been leaking fluid forthe last 3 days, mainly occurs in the morning and at night. She states the fluid is clear and does not have an odor to it. O: Pelvic exam: VULVA: normal appearing vulva with no masses, tenderness or lesions, VAGINA: normal appearing vagina with normal color and discharge, no lesions, CERVIX: normal appearing cervix without discharge or lesions, no pooling of amniotic fluid. UTERUS: gravid uterus. Nitrazine of 4.5 A/P: 30 y.o. @ 18w2d - MWB: Doing well. Not ruptured. ROM plus negative. Vaginitis panel collected to rule out infections. Discharge likely related to normal . - Placenta previa - currently on pelvic rest. Pelvic rest should continue. She verbalized understanding. - FWB: Reassuring by DT and FM - PNL: Up to date. - She has had her anatomy scan at [facility] in 4 weeks for next appointment documented in this encounter Miscellaneous Notes * Result Encounter Note - Lisette De Santiago NP - 09/06/2020 11:03 AM CDT Positive yeast, patient already treated per patient report. * Result Encounter Note - Amanda Arguello - 09/01/2020 12:11 PM CDT Pt aware of results documented in this encounter Plan of Treatment Not on file documented as of this encounter Procedures Procedure Name Priority Date/Time Associated Diagnosis Comments RUPTURE OF MEMBRANES Stat 08/31/2020 2:35 PM CDT 18 weeks gestation of VAGINOSIS/VAGINITIS PANEL PLUS Routine 08/31/2020 2:34 PM CDT Vaginal discharge documented in this encounter Results * RUPTURE OF MEMBRANES (08/31/2020 2:35 PM CDT) RUPTURE OF MEMBRANES Negative Negative 08/31/2020 3:17 PM CDT [facility] Genital SPECIMEN FROM VAGINA / Unknown Collection / Unknown 08/31/2020 2:35 PM CDT 08/31/2020 2:50 PM CDT Narrative [facility] - 08/31/2020 3:17 PM CDT IGFBP-1 or AFP was not above the limit of detection. Lisette De Santiago NP BODY FLUIDS AND ST OOLS [facility] Organization Address City/State/ZIP Co de Phone Number [facility] SERVICES [facility] CLIA# [id number] [address] [place] [address] * (ABNORMAL) VAGINOSIS/VAGINITIS PANEL PLUS (08/31/2020 2:34 PM CDT) Pathologist [facility] C TRA RNA NOT DETECTED [facility] N.GONORRHOEAE RNA, TMA NOT DETECTED [facility] Comment: REFERENCE RANGE: NOT DETECTED Methodology: Butcher Supervisor Mediated Amplification (TMA) to detect RNA. The analytical performance characteristics of this assay, when used to test SurePath(TM) specimens have been determined by [facility]. The modifications have not been cleared or approved by the FDA. This assay has been validated pursuant to the CLIA regulations and is used for clinical purposes. For additional information, please refer to https://education.Body & Soul/faq/EUL038 (This link is being provided for informational/ educational purposes only.) LACTOBACILLUS SPECIES 6.6 Log (cells/m L) [facility] BV SCOT - ATOPOBIUM VAGINAE NOT DETECTED Log (cells/m L) [facility] BV SCOT - MEGASPHAERA SPECIES NOT DETECTED Log (cells/m L) [facility] GARDNERELLA VAGINALIS NOT DETECTED Log (cells/m L) [facility] BV CATEGORY NOT SUPPORTIVE [facility] Comment: REFERENCE RANGE: ??BV Category: NOT SUPPORTIVE Methodology: Real-Time PCR NOT SUPPORTIVE OF BV: The pattern of results is not supportive of a diagnosis of BV: 1) Presence of Lactobacillus spp., G. vaginalis levels less than 6.0 log cells/mL, and absence of A. vaginae and Megasphaera spp; or 2) Absence of all targeted organisms; or 3) Absence of Lactobacillus spp. plus G. vaginalis detected at levels less than 6.0 log cells/mL and absence of A. vaginae and Megasphaera spp. EQUIVOCAL FOR BV: The pattern of results is neither supportive nor not supportive of a diagnosis of BV. The patient may be in transition into or out of BV: Presence of Lactobacillus spp. plus G. vaginalis (greater or equal to 6.0 log cells/mL) and/or one of the other BV-associated pathogens. SUPPORTIVE OF BV: The pattern of results is supportive of a diagnosis of BV: Absence of Lactobacillus spp. and presence of G. vaginalis greater than or equal to 6.0 log cells/mL and/or one or both of the other BV-associated pathogens. Concentration for Lactobacilli (L. acidophilus/crispatus, L. jensenii) are collectively reported under the term Lactobacillus spp. , as these species are among the peroxide producing Lactobacilli thought to be protective against bacterial vaginosis. Atopobium vaginae, Megasphaera spp., and Gardnerella (greater than 6.0 log cells/mL) have been associated with vaginosis when present in the absence of peroxidase producing Lactobacilli. This test was developed and its analytical performance characteristics have been determined by [facility]. It has not been cleared or approved by FDA. This assay has been validated pursuant to the CLIA regulations and is used for clinical purposes. SURESWAB(R) TRICHOMONAS VAGINALIS RNA QL TMA NOT DETECTED [facility] Comment: REFERENCE RANGE: NOT DETECTED Methodology: Butcher Supervisor Mediated Amplification (TMA) For additional information, please refer to http://education.Body & Soul/faq/Trichomonastma (This link is being provided for informational/educational purposes only.) Patti albicans DETECTED(A) [facility] Patti glabrata NOT DETECTED [facility]. TROPICALIS DNA NOT DETECTED [facility] CLI RICHARD Patti Parapsilosis NOT DETECTED [facility] Comment: REFERENCE RANGE: NOT DETECTED Methodology: Real-Time PCR This test was developed and its analytical performance characteristics have been determined by [facility]. It has not been cleared or approved by FDA. This assay has been validated pursuant to the CLIA regulations and is used for clinical purposes. Test Performed at: [facility] [address] [place] [address] ??[phone] Morris Barrett MD Genital SPECIMEN FROM VAGINA / Unknown 08/31/2020 2:34 PM CDT 09/01/2020 4:27 AM CDT Lisette De Santiago NP MICROBIOLOGY - GEN ERAL ORDERABLES [facility] [address] [place] [address] documented in this encounter Visit Diagnoses Diagnosis 18 weeks gestation of - Primary state, incidental Vaginal discharge Leukorrhea, not specified as infective Placenta previa in second trimester documented in this encounter Care Teams Lawyer Relationship Specialty Start Date End Date Brian Mon MD [address] [place] [phone] PCP - General Internal Medicine 07/15/19 documented as of this encounter
--- OUTSIDE RECORDS SUMMARY | 2024-02-24 20:36 | XMS_ITS | Encounter Summary ---
Author Organization [facility] Address [address] [place]: Epic Prelude ADT [place] [address] Care Team Providers Care Butcher Name Role Phone Brian Mon MD Primary Care Provider Encounter Details Date Type Department Care Team (Latest Contact Info) Description 07/22/2020 Travel Social History Tobacco Use Types Packs/Day [...] have Coronavirus / COVID-19? No / Unsure 07/22/2020 12:28 PM CDT documented as of this encounter Plan of Treatment Not on file documented as of this encounter Visit Diagnoses Not on filedocumented in this encounter Care Teams Butcher Relationship Specialty Start Date End Date Brian Mon MD [address] [place] [address] PCP - General Internal Medicine 07/15/19 documented as of this encounter
--- OUTSIDE RECORDS SUMMARY | 2024-02-24 20:36 | XMS_ITS | Encounter Summary ---
Author Organization [facility] Address [address] [place] [address] Care Team Providers Care Log Roller Name Role Phone Brian Mon MD Primary Care Provider Reason for Visit * Reason Comments Routine Visit Encounter Details Date Type Department Care Team (Late st Contact Info) Description 08/17/2020 7:30 AM CDT visit [facility] OBGYN [address] [facility] [address] [place] [address] [place]on [place]gado [place] [id number] [place] [address] [address], [place] [address] Placenta previa in second trimester (Primary Dx); Encounter for screening Social History Tobacco Use Types Packs/Day Years [...] have Coronavirus / COVID-19? No / Unsure 08/17/2020 7:14 AM CDT documented as of this encounter Last Filed Vital Signs Vital Sign Reading Time Taken Comments Blood Pressure 122/72 08/17/2020 7:32 AM CDT Pulse - - Temperature - - Respiratory Rate - - Oxygen Saturation - - Inhaled Oxygen Concentration - - Weight 80.7 kg (178 lb) 08/17/2020 7:32 AM CDT Height 160 cm (5' 3 ) 08/17/2020 7:32 AM CDT Body Mass Index 31.53 08/17/2020 7:32 AM CDT documented in this encounter Progress Notes * Sheldon Delgado MD - 08/17/2020 7:[address] [facility] Obstetrical Clinic Visit 30 y.o. S: This patient denies bleeding, loss of fluid, cramping and emesis. O: Vitals: 08/17/20 0732 BP: 122/72 Fundus is normal in size. heart tones are within normal limits. Her abdomen is , soft and not tender. There is no evidence of a DVT. A/P EDC- 01/30/2021 Herpes history: YES G1PO High Risk Category Placenta Previa HERPES LUPUS ADDISONS Baby ASA On prednisone/hydroxychloroquine and Zoloft. She did take progesterone until 12 weeks gestation. She is being followed in the maternal- medicine Center at [facility] because it is close to her house. documented in this encounter Plan of Treatment Not on file documented as of this encounter Procedures Procedure Name Priority Date/Time Associated Diagnosis Comments ALPHA FETOPROTEIN MATERNAL Routine 08/17/2020 12:25 PM CDT Encounter for screening documented in this encounter Results * ALPHA FETOPROTEIN MATERNAL (08/17/2020 12:25 PM CDT) AFP RISK INTERP [facility] Comment:Screen negative for open NTD. AFP COMMENTS <1 IN [facility] AFP COMMENTS 31.6 ng/mL [facility] ADJ MULTIPL MED AFP 1.03 [facility] COMMENT [facility] Comment: This patient's MANE (estimated date of delivery) was used to calculate the gestational age. Performance of maternal AFP provides a useful screening test for detection of open neural tube defects. The single AFP marker is not recommended for Down syndrome and other chromosomal abnormalities screening. Much greater sensitivity is achieved with multiple markers, such as AFP, hCG, unconjugated estriol, and/or dimeric inhibin A, as recommended by the [place] [employer]. ??It should be noted that normal test results can never guarantee the of a normal baby and that 2-3% of newborns have some type of physical or mental defect, many of which are undetectable through any known diagnostic technique. SEE NOTE [facility] Comment: This is a screening test, not a diagnostic test. This risk assessment report is based in part on demographic data provided by the ordering physician. Please notify the laboratory promptly if any data are incorrect. For assistance with recalculations, please call your local [facility] laboratory. For assistance with interpretation of these results, please contact your Local [facility] genetic counselor or call [phone]). Interpretive Cutoffs Screen Positive for Open NTD: > or = 2.50 adjusted MOM ?> or = 1.90 adjusted MOM for ?Insulin-dependent diabetics ?> or = 4.00 adjusted MOM for ?twins ?> or = 3.50 adjusted MOM for ?Twins insulin-dependent ?diabetics ?> or = 4.50 adjusted MOM for ?triplets GESTATIONAL AGE 16.3 weeks [facility] PATIENT'S WEIGHT 177 lbs [facility] PATIENT'S EST DELIVERY DATE 01/30/2021 [facility] MANE DETERMINED BY LMP [facility] RACE [facility] NUMBER OF FETUS 1 [facility] INSULIN DEPENDANT NO [facility] REPEAT SPECIMEN? NO [facility] HISTORY OF NTD NO [facility] HISTORY OF DOWN SYNDROME NO [facility] DONOR EGG NO [facility] DONOR AGE NOT GIVEN [facility] Comment: Test Performed at: [facility] ??[phone] Dima Ogden D.O., MPH Blood 08/17/2020 12:2 5 PM CDT Sheldon Delgado MD CHEMISTRY ORDERABLES Performing Organization Address City/State/[facility] Co de Phone Number [facility] [address] [place] [address] documented in this encounter Visit Diagnoses Diagnosis Placenta previa in second trimester- Primary Encounter for screening documented in this encounter Care Teams Log Roller Relationship Specialty Start Date End Date Brian Mon MD [address] [place] [address] PCP - General Internal Medicine 07/15/19 documented as of this encounter
--- OUTSIDE RECORDS SUMMARY | 2024-02-24 20:36 | XMS_ITS | Encounter Summary ---
Author Organization [facility] Address [address] [place]: Epic Prelude ADT [place] [address] Care Team Providers Care Hearing Impaired Itinerant Teacher Name Role Phone Brian Mon MD Primary Care Provider Encounter Details Date Type Department Care Team (Latest Contact Info) Description 06/17/2020 Travel Social History Tobacco Use Types Packs/Day [...] have Coronavirus / COVID-19? No / Unsure 06/17/2020 2:10 PM CDT documented as of this encounter Plan of Treatment Not on file documented as of this encounter Visit Diagnoses Not on filedocumented in this encounter Care Teams Hearing Impaired Itinerant Teacher Relationship Specialty Start Date End Date Brian Mon MD [address] [place] [address] PCP - General Internal Medicine 07/15/19 documented as of this encounter
--- OUTSIDE RECORDS SUMMARY | 2024-02-24 20:36 | XMS_ITS | Encounter Summary ---
Author Organization [facility] Address [address] [place] [address] Care Team Providers Care Manager Credit Collections Name Role Phone Brian Mon MD Primary Care Provider Reason for Visit * Reason Onset Date Comments Results 06/09/2020 Encounter Details Date Type Department Care Team (Late st Contact Info) Description 06/09/2020 Telephone [facility] OBGYN [address], [place] [address] [place] [address] [facility] [address], [place] [address] Results Social History Tobacco Use Types Packs/Day [...] have Coronavirus / COVID-19? No / Unsure 06/08/2020 9:04 AM CDT documented as of this encounter Miscellaneous Notes * Telephone Encounter - Krista Mullins - 06/09/2020 1:31 PM CDT Pt is notified of having pap at her next visit. documented in this encounter Plan of Treatment Not on file documented as of this encounter Visit Diagnoses Not on filedocumented in this encounter Care Teams Manager Credit Collections Relationship Specialty Start Date End Date Brian Mon MD [address] [place] [address] PCP - General Internal Medicine 07/15/19 documented as of this encounter
--- OUTSIDE RECORDS SUMMARY | 2024-02-24 20:36 | XMS_ITS | Encounter Summary ---
Author Organization [facility] Address [address] [place] [address] Care Team Providers Care Flatwork Assembler Name Role Phone Brian Mon MD Primary Care Provider Reason for Visit * Reason Comments Routine Visit Encounter Details Date Type Department Care Team (Late st Contact Info) Description 08/03/2020 7:30 AM CDT visit [facility] OBGYN [address] [facility] [address] [place] [address] [address] [place] [address] [place] [address] [facility] [address] [address] Primiparity, second trimester (Primary Dx) [...] have Coronavirus / COVID-19? No / Unsure 08/03/2020 7:30 AM CDT documented as of this encounter Last Filed Vital Signs Vital Sign Reading Time Taken Comments Blood Pressure 110/70 08/03/2020 7:43 AM CDT Pulse - - Temperature - - Respiratory Rate - - Oxygen Saturation - - Inhaled Oxygen Concentration - - Weight 80.6 kg (177 lb 12.8 oz) 08/03/2020 7:43 AM CDT Height 160 cm (5' 3 ) 08/03/2020 7:43 AM CDT Body Mass Index 31.5 08/03/2020 7:43 AM CDT documented in this encounter Progress Notes * Sheldon Delgado MD - 08/03/2020 7:53 AM CDT [facility] Obstetrical Clinic Visit 30 y.o. S: This patient denies bleeding, loss of fluid, cramping and emesis. O: Vitals: 08/03/20 0743 BP: 110/70 Fundus is normal in size. heart tones [...] followed in the maternal- medicine Center at [facility] because it is close to her house. documented in this encounter Plan of Treatment Not on file documented as of this encounter Visit Diagnoses Diagnosis Primiparity, second trimester- Primary documented in this encounter Care Teams Flatwork Assembler Relationship Specialty Start Date End Date Brian Mon MD [address] [place] [address] PCP - General Internal Medicine 07/15/19 documented as of this encounter
--- OUTSIDE RECORDS SUMMARY | 2024-02-24 20:36 | XMS_ITS | Encounter Summary ---
Author Organization [facility] Address [address] [place] [address] Care Team Providers Care Resp Ther Name Role Phone Brian Mon MD Primary Care Provider Reason for Visit * Reason Comments Routine Visit Encounter Details Date Type Department Care Team (Late st Contact Info) Description 07/22/2020 1:10 PM CDT visit [facility] OBGYN [address] [facility] [address] [place] [address] [address] [place] [address] [place] [address] [facility] [address] [address] Primiparity, first trimester (Primary Dx) Social History Tobacco Use [...] Sign Reading Time Taken Comments Blood Pressure 114/74 07/22/2020 1:30 PM CDT Pulse - - Temperature - - Respiratory Rate - - Oxygen Saturation - - Inhaled Oxygen Concentration - - Weight 80.7 kg (178 lb) 07/22/2020 1:30 PM CDT Height 160 cm (5' 3 ) 07/22/2020 1:30 PM CDT Body Mass Index 31.53 07/22/2020 1:30 PM CDT documented in this encounter Progress Notes * Sheldon Delgado MD - 07/22/2020 1:43 PM CDT [facility] Obstetrical Clinic Visit 30 y.o. S: This patient denies bleeding, loss of fluid, cramping and emesis. O: Vitals: 07/22/20 1330 BP: 114/74 Fundus is normal in size. heart tones are within normal limits. Her abdomen is , soft and not tender. There is no evidence of a DVT. A/P EDC- 01/30/2021 Herpes history: YES G1PO High Risk Category HERPES LUPUS ADDISONS Baby ASA On prednisone/hydroxychloroquine and Zoloft. She did take progesterone until 12 weeks gestation. She is being followed in the maternal- medicine Center at [facility] because it is close to her house. documented in this encounter Plan of Treatment Not on file documented as of this encounter Procedures Procedure Name Priority Date/Time Associated Diagnosis Comments RPR Routine 08/17/2020 11:50 AM CDT Primiparity, first trimester HIV DETECTION W/REFLX CONFIRMATION Routine 08/17/2020 11:48 AM CDT Primiparity, first trimester HEPATITIS B SURFACE ANTIGEN Routine 08/17/2020 11:46 AM CDT Primiparity, first trimester HEMOGLOBIN A1C Routine 08/17/2020 11:40 AM CDT Primiparity, first trimester RUBELLA IGG Routine 08/17/2020 11:33 AM CDT Primiparity, first trimester URINALYSIS WITH REFLEX CULTURE Routine 08/17/2020 11:31 AM CDT Primiparity, first trimester CBC WITHOUT DIFFERENTIAL Routine 08/17/2020 11:29 AM CDT Primiparity, first trimester TYPE AND SCREEN Routine 08/17/2020 11:27 AM CDT Primiparity, first trimester documented in this encounter Results * RPR (08/17/2020 11:50 AM CDT) RPR NON-REACTI VE NON-REACTI VE [facility] Comment: Test Performed at: [facility] [address] [place] ??[address] Dima Ogden D.O., MPH Blood 08/17/2020 11:5 0 AM CDT Sheldon Delgado MD CHEMISTRY ORDERABLES [facility] [address] [place] [address] * HIV DETECTION W/REFLX CONFIRMATION (08/17/2020 11:48 AM CDT) HIV-1/2 AG AND AB SCREEN NON-REACT FAZAL NON-REACT FAZAL [facility] Comment: HIV-1 antigen and HIV-1/HIV-2 antibodies were not detected. There is no laboratory evidence of HIV infection. PLEASE NOTE: This information has been disclosed to you from records whose confidentiality may be protected by state law. ??If your state requires such protection, then the state law prohibits you from making any further disclosure of the information without the specific written consent of the person to whom it pertains, or as otherwise permitted by law. A general authorization for the release of medical or other information is NOT sufficient for this purpose. For additional information please refer to http://education.C[employer].mySBX/faq/ZZO580 (This link is being provided for informational/ educational purposes only.) The performance of this assay has not been clinically validated in patients less than 2 years old. Test Performed at: [facility] [employer] [address] [place], [place] ??[phone] Dima Ogden D.O., MPH Blood 08/17/2020 11:4 8 AM CDT Sheldon Delgado MD CHEMISTRY ORDERABLES Performing Organization Address [facility] Co de Phone Number [facility] [address] [place] [address] * HEPATITIS B SURFACE ANTIGEN (08/17/2020 11:46 AM CDT) Pathologist [facility] HEPATITIS B SURFACE AG NON-REACTI VE NON-REACTI VE [facility] Comment: Test Performed at: [facility] ??[phone] Dima Ogden D.O., MPH Blood 08/17/2020 11:4 6 AM CDT Sheldon Delgado MD CHEMISTRY ORDERABLES Performing Organization Address [facility] de Phone Number [facility] [address] [place] [address] * HEMOGLOBIN A1C (08/17/2020 11:40 AM CDT) Pathologist [facility] HEMOGLOBIN A1C 4.7 <5.7 % of total Hgb [facility] Comment: For the purpose of screening for the presence of diabetes: <5.7% ? Consistent with the absence of diabetes 5.7-6.4% ?Consistent with increased risk for diabetes ?(prediabetes) > or =6.5% ??Consistent with diabetes This assay result is consistent with a decreased risk of diabetes. Currently, no consensus exists regarding use of hemoglobin A1c for diagnosis of diabetes in children. According to [place] [employer] (ADA) guidelines, hemoglobin A1c <7.0% represents optimal control in non- diabetic patients. Different metrics may apply to specific patient populations. Standards of Medical Care in Diabetes(ADA). Test Performed at: [facility] ??[phone] Dima Ogden D.O., MPH Blood 08/17/2020 11:4 0 AM CDT Sheldon Delgado MD CHEMISTRY ORDERABLES Performing Organization Address [facility] Phone Number [facility] [address] [place] [address] * RUBELLA IGG (08/17/2020 11:33 AM CDT) RUBELLA IMMUNE STATUS 4.55 Index [facility] Comment: ?Index ?Interpretation ?----- ?<0.90 ?Not consistent with immunity ?0.90-0.99 ?Equivocal ?> or = 1.00 ?Consistent with immunity The presence of rubella IgG antibody suggests immunization or past or current infection with rubella virus. Test Performed at: [facility] [address] [place] [address] ??[phone] Dima Ogden D.O., MPH Blood 08/17/2020 11:3 3 AM CDT Sheldon Delgado MD CHEMISTRY ORDERABLES Performing Organization Address [facility] de Phone Number [facility] [address] [place] [address] * (ABNORMAL) URINALYSIS WITH REFLEX CULTURE (08/17/2020 11:31 AM CDT) COLOR UA YELLOW YELLOW [facility] CLARITY UA CLEAR CLEAR [facility] SPECIFIC GRAVITY UA 1.020 1.001 - 1.035 [facility] PH UA 7.5 5.0 - 8.0 [facility] GLUCOSE UA NEGATIVE NEGATIVE [facility] BILIRUBIN UA NEGATIVE NEGATIVE [facility] KETONES UA NEGATIVE NEGATIVE [facility] BLOOD UA NEGATIVE NEGATIVE [facility] PROTEIN UA NEGATIVE NEGATIVE [facility] NITRITE UA NEGATIVE NEGATIVE [facility] LEUKOCYTE ESTERASE UA NEGATIVE NEGATIVE [facility] WBC UA 0-5 < OR = 5 /HPF [facility] RBC UA NONE SEEN < OR = 2 /HPF [facility] EPITHELIAL CELLS, URINE 0-5 < OR = 5 /HPF [facility] BACTERIA UA FEW(A) NONE SEEN /HPF [facility] HYALINE CAST NONE SEEN NONE SEEN /LPF [facility] SEE NOTE [facility] Comment: NO CULTURE INDICATED Test Performed at: [facility] [address] [place], [place] ??[phone] Dima Ogden D.O., MPH Urine URINE SPECIMEN OBTAINED BY CLEAN CATCH PROCEDURE / Unknown 08/17/2020 11:31 AM CDT Sheldon Delgado MD URINE ORDERABLES Performing Organization Address [facility] Co de Phone Number [facility] [address] [place] [address] * CBC WITHOUT DIFFERENTIAL (08/17/2020 11:29 AM CDT) WBC 10.8 3.8 - 10.8 Thousand/u L [facility] RBC 3.88 3.80 - 5.10 Million/uL [facility] HEMOGLOBIN 11.7 11.7 - 15.5 g/dL [facility] HEMATOCRIT 35.0 35.0 - 45.0 % [facility] MCV 90.2 80.0 - 100.0 fL [facility] MCH 30.2 27.0 - 33.0 pg [facility] MCHC 33.4 32.0 - 36.0 g/dL [facility] RDW 12.8 11.0 - 15.0 % [facility] PLATELETS 306 140 - 400 Thousand/u L [facility] MPV 10.0 7.5 - 12.5 fL [facility] Comment: Test Performed at: [facility] [address] [place], [place] ??[phone] Dima Ogden D.O., MPH Blood 08/17/2020 11:2 9 AM CDT Sheldon Delgado MD HEMATOLOGY ORDERABLE S Performing Organization Address City/[facility]/ZIP Co de Phone Number [facility] [address] [place] [address] * TYPE AND SCREEN (08/17/2020 11:27 AM CDT) ANTIBODY SCREEN NO ANTIBODIES DETECTED [facility] Comment: ?Reference range ?No antibodies detected This assay is a screening test for the detection of red blood cell antibodies. The test is not to be used for pretransfusion screening or for the medical management of an alloimmunized . ? ABO GROUP A [facility] RH (D) TYPE RH(D) POSITIVE [facility] Comment: For additional information, please refer to http://education.[employer]/faq/NEQ047 (This link is being provided for informational/ educational purposes only.) Test Performed at: [facility] [address] [place] [address] ??[phone] Dima Ogden D.O., MPH Blood 08/17/2020 11:2 7 AM CDT Sheldon Delgado MD BLOOD BANK ORDERABLE S [facility] [address] [place] [address] documented in this encounter Visit Diagnoses Diagnosis Primiparity, first trimester- Primary documented in this encounter Care Teams Resp Ther Relationship Specialty Start Date End Date Brian Mon MD [address] [place] [address] PCP - General Internal Medicine 07/15/19 documented as of this encounter
--- OUTSIDE RECORDS SUMMARY | 2024-02-24 20:36 | XMS_ITS | Encounter Summary ---
Author Organization [facility] Address [address] [place]: Epic Prelude ADT [place] [address] Care Team Providers Care Loss Prevention Guard Name Role Phone Brian Mon MD Primary Care Provider Encounter Details Date Type Department Care Team (Latest Contact Info) Description 08/31/2020 Travel Social History Tobacco Use Types Packs/Day [...] on filedocumented in this encounter Care Teams Loss Prevention Guard Relationship Specialty Start Date End Date Brian Mon MD [address] [place] [address] PCP - General Internal Medicine 07/15/19 documented as of this encounter
--- OUTSIDE RECORDS SUMMARY | 2024-02-24 20:36 | XMS_ITS | Encounter Summary ---
Author Organization [facility] Address [address] [place] [address] Care Team Providers Care Sheep Farm Worker Name Role Phone Brian Mon MD Primary Care Provider Reason for Visit * Reason Comments Problem Encounter Details Date Type Department Care Team (Late st Contact Info) Description 07/05/2020 4:40 PM CDT visit [facility] OBGYN [address] [facility] [address] [place] [address] [place] [address] [facility] [address] [address] Primiparity, first trimester (Primary Dx) [...] have Coronavirus / COVID-19? No / Unsure 06/29/2020 10:46 AM CDT documented as of this encounter Last Filed Vital Signs Vital Sign Reading Time Taken Comments Blood Pressure 118/72 07/05/2020 4:38 PM CDT Pulse - - Temperature - - Respiratory Rate - - Oxygen Saturation - - Inhaled Oxygen Concentration - - Weight 79.1 kg (174 lb 6.4 oz) 07/05/2020 4:38 P M CDT Height 160 cm (5' 3 ) 07/05/2020 4:38 PM CDT Body Mass Index 30.89 07/05/2020 4:38 PM CDT documented in this encounter Progress Notes * Sheldon Delgado MD - 07/05/2020 5:29 PM CDT [facility] Obstetrical Clinic Visit 30 y.o. S: This patient denies bleeding, loss of fluid, cramping and emesis. O: Vitals: 07/05/20 1638 BP: 118/72 Fundus is normal in size. heart tones are within normal limits. Her abdomen is , soft and not tender. There is no evidence of a DVT. A/P EDC- 01/30/2021 Herpes history: YES G1PO High Risk Category HERPES documented in this encounter Plan of Treatment Not on file documented as of this encounter Visit Diagnoses Diagnosis Primiparity, first trimester- Primary documented in this encounter Care Teams Sheep Farm Worker Relationship Specialty Start Date End Date Brian Mon MD [address] [place] [phone] PCP - General Internal Medicine 07/15/19 documented as of this encounter
--- OUTSIDE RECORDS SUMMARY | 2024-02-24 20:36 | XMS_ITS | Encounter Summary ---
Author Organization [facility] Address [address] [place] [address] Care Team Providers Care Log Loader Helper Name Role Phone Brian Mon MD Primary Care Provider Reason for Visit * Reason Onset Date Comments Wants Appointment 06/14/2020 Encounter Details Date Type Department Care Team (Late st Contact Info) Description 06/14/2020 Telephone [facility] OBGYN [address] [place] [address] [place] [address] [facility] [address], [place] [address] Wants Appointment Social History Tobacco Use Types Packs/Day [...] encounter Miscellaneous Notes * Telephone Encounter - Rosaura Chaudhary - 06/14/2020 10:21 AM CDT Made Carito an appt. For 06/15/20. * Telephone Encounter - Rosaura Chaudhary - 06/14/2020 10:21 AM CDT ----- Message from Carito MADISON sent at 06/14/2020 9:19 AM CDT ----- Regarding: RE: Visit Follow-Up Question Contact: So is there anyway i can come in today or tomorrow?? ----- Message ----- From: Office of Dr. Tiffany Delgado Sent: 06/12/20, 11:31 AM To: Carito MADISON Subject: RE: Visit Follow-Up Question No worries Carito that's what we are here for! Brendan ----- Message ----- From:Carito MADISON Sent:06/12/2020 11:25 AM CDT To:Dr. Tiffany Delgado Subject:RE: Visit Follow-Up Question Thank you I don't wanna keep worrying if it's meant to be it will happen dr Delgado is amazing for even allowing me to come today I felt bad for him having to cram me in I'm sorry ----- Message ----- From:Office of Dr. Tiffany Delgado Sent:06/12/2020 11:23 AM CDT To:Carito MADISON Subject:RE: Visit Follow-Up Question Carito, Call the office Sunday a.m. to set up an appointment. Brendan ----- Message ----- From:Carito MADISON Sent:06/12/2020 10:10 AM CDT To:Dr. Tiffany Delgado Subject:RE: Visit Follow-Up Question I'll just wait cordell I'm not bleeding can I get in sometime next week? Or should I just call Sunday thank you ----- Message ----- From:Office of Dr. Tiffany Delgado Sent:06/12/2020 9:23 AM CDT To:Carito MADISON Subject:RE: Visit Follow-Up Question I'm so sorry but there is no attachment on my end. Are you bleeding? If you are bleeding more than a pad an hour you should go to the ER. ----- Message ----- From:Carito MADISON Sent:06/12/2020 9:03 AM CDT To:Dr. Tiffany Delgado Subject:RE: Visit Follow-Up Question So should I go to hospital? I sent you the pic is that the baby again how could this happen again ----- Message ----- From:Office of Dr. Tiffany Delgado Sent:06/12/2020 9:02 AM CDT To:Carito MADISON Subject:RE: Visit Follow-Up Question Hi, please call my office on Sunday to set up that appointment. We do not have any openings today. ----- Message ----- From:Carito MADISON Sent:06/12/2020 6:23 AM CDT To:Dr. Tiffany Delgado Subject:Visit Follow-Up Question Hi I was supposed to have an apt today can I please still have that because my would reallylike to come and I have one next week already?? Plus I had apt with maternal medicine yesterday and need to discuss with dr Delgado documented in this encounter Plan of Treatment Not on file documented as of this encounter Visit Diagnoses Not on filedocumented in this encounter Care Teams Log Loader Helper Relationship Specialty Start Date End Date Brian Mon MD [address] [place] [id number] PCP - General Internal Medicine 07/15/19 documented as of this encounter
--- OUTSIDE RECORDS SUMMARY | 2024-02-24 20:36 | XMS_ITS | Encounter Summary ---
Author Organization [facility] Address [address] [place] [address] Care Team Providers Care Quality Engineer Name Role Phone Brian Mon MD Primary Care Provider Reason for Visit * Reason Onset Date Comments Problem 07/18/2020 Encounter Details Date Type Department Care Team (Late st Contact Info) Description 07/18/2020 Nurse Triage [facility] Nurse ux information architect [address] [place] [address] Valeri Rossi RN Social History Tobacco Use Types Packs/Day [...] have Coronavirus / COVID-19? No / Unsure 07/14/2020 9:45 PM CDT documented as of this encounter Miscellaneous Notes * Telephone Encounter - Valeri Rossi RN - 07/18/2020 11:07 AM CDT Patient's address on file: [address] [place] [address] Patient's current location: Same as above Reason for Disposition ??? Diabetes mellitus or weak immune system (e.g., HIV positive, cancer chemo, splenectomy, organ transplant, chronic steroids) Has Lupus Additional Information ??? Negative: Blood in urine (red, pink, or tea-colored) yellow Protocols used: - URINATION PAIN-A-AH Patient states she has a herpes outbreak and needs Valtrex. RN notified patient that she has refills on the Valtrex prescription written for her last month; she verbalized understanding and states she will get a refill. She also states she has been having frequency/urgency with urination x 3 days. Assessment completed. See HCP Within 4 hours: RN will page Dr Sheldon Delgado or environmental sustainability manager provider for possible redirection.Patient also wants to call in sick to work for the next couple of days due to the herpes pain and is requesting a work excuse. Dr. Karen Martines (non-integrated) is taking call. Call back to patient: RN advised her she needs to be seen within 4 hours regarding her urinary issues. She verbalized understanding and states she may go be seen or she may wait until Dr. Delgado's office opens tomorrow. She also states she has hiscell number and may text him today. documented in this encounter Plan of Treatment Not on file documented as of this encounter Visit Diagnoses Not on filedocumented in this encounter Care Teams Quality Engineer Relationship Specialty Start Date End Date Brian Mon MD [address] [place] [phone] PCP - General Internal Medicine 07/15/19 documented as of this encounter
--- OUTSIDE RECORDS SUMMARY | 2024-02-24 20:36 | XMS_ITS | Encounter Summary ---
Author Organization [facility] Address [address] [place]: Epic Prelude ADT [place] [address] Care Team Providers Care Bracelet Maker Novelty Name Role Phone Brian Mon MD Primary Care Provider Encounter Details Date Type Department Care Team (Latest Contact Info) Description 07/05/2020 Travel Social History Tobacco Use Types Packs/Day [...] on filedocumented in this encounter Care Teams Bracelet Maker Novelty Relationship Specialty Start Date End Date Brian Mon MD [address] [place] [phone] PCP - General Internal Medicine 07/15/19 documented as of this encounter
--- OUTSIDE RECORDS SUMMARY | 2024-02-24 20:36 | XMS_ITS | Encounter Summary ---
Author Organization [facility] Address [address] [place] [address] Care Team Providers Care Citrus Peeler Name Role Phone Brian Mon MD Primary Care Provider [phone] Encounter Details Date Type Department Care Team (Latest Contact Info) Description 06/08/2020 9:20 AM CDT Ancillary Procedure [facility] OBGYN [address] [facility] [address] [place] [address] Threatened in early ; H/O miscarriage, currently , first trimester Social History Tobacco Use Types Packs/Day [...] Priority Date/Time Associated Diagnosis Comments US OB TRANSVAGINAL Routine 06/08/2020 1: 31 PM CDT Threatened in early H/O miscarriage, currently , first trimester documented in this encounter Results * US OB TRANSVAGINAL (06/08/2020 1:31 PM CDT) CRL ([place]) [facility] OBGYN [address] Sac Diameter [facility] O BGYN [address] FHR [facility] OBGY N [address] Anatomical Region Laterality Modality Pelvis Ultrasound Narrative 06/08/2020 1:31 PM CDT The indication for this ultrasound is uterine cramping. ??This is a transvaginal ultrasound. ??A single viable intrauterine with positive cardiac activity with a ventricular heart rate of 111 bpm was identified. ??The estimated due date of January 30, 2021 was confirmed. ??Plan is expectant management. ??My impression is that this is a single viable intrauterine with threatened . ??She is 6 weeks . Sheldon Delgado MD ORDERABLES documented in this encounter Visit Diagnoses Diagnosis Threatened in early Threatened , unspecified as to episode of care H/O miscarriage, currently , first trimester documented in this encounter Care Teams Citrus Peeler Relationship Specialty Start Date End Date Brian Mon MD [address] [place] [address] PCP - General Internal Medicine 07/15/19 documented as of this encounter
--- OUTSIDE RECORDS SUMMARY | 2024-02-24 20:36 | XMS_ITS | Encounter Summary ---
Author Organization [facility] Address [address] [place]: Epic Prelude ADT [place] [address] Care Team Providers Care Rack Cleaner Name Role Phone Brian Mon MD Primary Care Provider Encounter Details Date Type Department Care Team (Latest Contact Info) Description 06/21/2020 Travel Social History Tobacco Use Types Packs/Day [...] have Coronavirus / COVID-19? No / Unsure 06/21/2020 8:48 AM CDT documented as of this encounter Plan of Treatment Not on file documented as of this encounter Visit Diagnoses Not on filedocumented in this encounter Care Teams Rack Cleaner Relationship Specialty Start Date End Date Brian Mon MD [address] [place] [phone] PCP - General Internal Medicine 07/15/19 documented as of this encounter
--- OUTSIDE RECORDS SUMMARY | 2024-02-24 20:36 | XMS_ITS | Encounter Summary ---
Author Organization [facility] Address [address] [place]: Epic Prelude ADT [place] [address] Care Team Providers Care Coal Pipeline Operator Name Role Phone Brian Mon MD Primary Care Provider Encounter Details Date Type Department Care Team (Latest Contact Info) Description 07/13/2020 Travel Social History Tobacco Use Types Packs/Day [...] have Coronavirus / COVID-19? No / Unsure 07/13/2020 8:24 AM CDT documented as of this encounter Plan of Treatment Not on file documented as of this encounter Visit Diagnoses Not on filedocumented in this encounter Care Teams Coal Pipeline Operator Relationship Specialty Start Date End Date Brian Mon MD [address] [place] [phone] PCP - General Internal Medicine 07/15/19 documented as of this encounter
--- OUTSIDE RECORDS SUMMARY | 2024-02-24 20:36 | XMS_ITS | Encounter Summary ---
Author Organization [facility] Address [address] [place] [address] Care Team Providers Care Box Truck Driver Name Role Phone Brian Mon MD Primary Care Provider Encounter Details Date Type Department Care Team (Late st Contact Info) Description 06/08/2020 Orders Only [facility] OBGYN [address] [facility] [address] [place] [address] Provider, Abstract NO ADDRESS ON FILE Social [...] Date/Time Associated Diagnosis Comments PROGESTERONE Routine 06/01/2020 documented in this encounter Results * PROGESTERONE (06/01/2020) Blood Impressions [facility] - 06/01/2020 Progesterone 13.4 ng/[place] [id number] H Abstract Provider CHEMISTRY ORDERABLES [facility] [address] [place] [address] documented in this encounter Visit Diagnoses Not on filedocumented in this encounter Care Teams Box Truck Driver Relationship Specialty Start Date End Date Brian Mon MD [address] [place] [phone] PCP - General Internal Medicine 07/15/19 documented as of this encounter
--- OUTSIDE RECORDS SUMMARY | 2024-02-24 20:36 | XMS_ITS | Encounter Summary ---
Author Organization [facility] Address [address] [place] [address] Care Team Providers Care Stone And Concrete Washer Name Role Phone Brian Mon MD Primary Care Provider [phone] Reason for Visit * Reason Onset Date Comments Abdominal Pain 06/08/2020 Encounter Details Date Type Department Care Team (Late st Contact Info) Description 06/08/2020 Nurse Triage [facility] Nurse deputy sheriff civil division [address] [place] [address] Sariah Vincent RN Social History Tobacco Use Types Packs/Day [...] have Coronavirus / COVID-19? No / Unsure 06/04/2020 11:16 AM CDT documented as of this encounter Miscellaneous Notes * Telephone Encounter - Sariah Vincent RN - 06/08/2020 6:50 AM CDT Disposition was given to pt, was looking at [facility] office to potentially schedule an appointment per pt request, call was disconnected. Attempted to call pt back, message left on identifiable VM to callback if services are still needed. Reason for Disposition ??? MODERATE-SEVERE abdominal pain (e.g., interferes with normal activities, awakens from sleep) Protocols used: - ABDOMINAL PAIN LESS THAN 20 WEEKS EGA-A-AH * Telephone Encounter - Sariah Vincent RN - 06/08/2020 6:39 AM CDT Patient's address on file: [address] [place] [address] Patient's current location: Same as above documented in this encounter Plan of Treatment Not on file documented as of this encounter Visit Diagnoses Not on filedocumented in this encounter Care Teams Stone And Concrete Washer Relationship Specialty Start Date End Date Brian Mon MD [address] [phone] PCP - General Internal Medicine 07/15/19 documented as of this encounter
--- OUTSIDE RECORDS SUMMARY | 2024-02-24 20:36 | XMS_ITS | Encounter Summary ---
Author Organization [facility] Address [address] [place] [address] Care Team Providers Care Professional Development Manager Name Role Phone Brian Mon MD Primary Care Provider Reason for Visit * Reason Comments Problem cramping Encounter Details Date Type Department Care Team (Late st Contact Info) Description 06/08/2020 9:20 AM CDT visit [facility] OBGYN [address] [facility] [address] [place] [address] [address] [place] [address] [place] [address] [facility] [address] [place] [address] Threatened in early (Primary Dx); H/O miscarriage, currently , first trimester Social [...] Sign Reading Time Taken Comments Blood Pressure 114/66 06/08/2020 9:25 AM CDT Pulse - - Temperature - - Respiratory Rate - - Oxygen Saturation - - Inhaled Oxygen Concentration - - Weight 79.7 kg (175 lb 9.6 oz) 06/08/2020 9:25 A M CDT Height 160 cm (5' 3 ) 06/08/2020 9:25 AM CDT Body Mass Index 31.11 06/08/2020 9:25 AM CDT documented in this encounter Progress Notes * Sheldon Delgado MD - 06/08/2020 9:56 AM CDT [facility] Visit 30 y.o. S: This patient denies bleeding, loss of fluid, cramping and emesis. O: Vitals: 06/08/20 0925 BP: 114/66 Fundus is normal in size. heart tones are within normal limits. Her abdomen is , soft and not tender. There is no evidence of a DVT. A/P EDC- 01/30/2021 Herpes history: YES Prior history: none GDM in prior pregancy: na GBS in prior : na High Risk Category HERPES documented in this encounter Plan of Treatment Not on file documented as of this encounter Results * US OB TRANSVAGINAL (06/08/2020 1:31 PM CDT) CRL ([place]) [facility] OBGYN [address] [facility] O BGYN [address] [facility] OBGY N [address] [address] Anatomical Region Laterality Modality [...] care H/O miscarriage, currently , first trimester Threatened in early - Primary Threatened , unspecified as to episode of care H/O miscarriage, currently , first trimester documented in this encounter Care Teams Professional Development Manager Relationship Specialty Start Date End Date Brian Mon MD [address] [place] [phone] PCP - General Internal Medicine 07/15/19 documented as of this encounter
--- OUTSIDE RECORDS SUMMARY | 2024-02-24 20:36 | XMS_ITS | Encounter Summary ---
Author Organization [facility] Address [address] [place] [address] Care Team Providers Care Auto Suspension And Steering Mechanic Name Role Phone Brian Mon MD Primary Care Provider [phone] Reason for Visit * Auth/Cert Specialty Diagnoses / Procedures Referred By Jud freeman Referred To Contact Obstetrics [facility] [address] [place] [address] Referral ID Status Reason Start Date Expiration Date Visits Re quested Visits Authorized [id number] 1 1 Encounter Details Date Type Department Care Team (Latest Contact Info) Description 07/14/2020 8:54 PM CDT - 07/14/2020 10:10 PM CDT Hospital Encounter [facility] Labor and Delivery [address] [place] [address] [place] [address] [facility] [address] [place] [address] Hemorrhage in early Discharge Disposition: Home or Self Care Social [...] Sign Reading Time Taken Comments Blood Pressure 130/83 07/14/2020 8:59 PM CDT Pulse - - Temperature 37 ??C (98.6 ??F) 07/14/2020 8:59 PM CDT Respiratory Rate 18 07/14/2020 8:59 PM CDT Oxygen Saturation 95% 07/14/2020 8:59 PM CDT Inhaled Oxygen Concentration - - Weight 79.8 kg (176 lb) 07/14/2020 8:59 PM CDT Height 154.9 cm (5' 1 ) 07/14/2020 8:59 PM CDT Body Mass Index 33.25 07/14/2020 8:59 PM CDT documented in this encounter Discharge Instructions * Discharge Instructions* Lizzie Che RN - 07/14/2020 9:59 PM CDT Under 20 weeks gestation Pain: Call your second rigger for worsening or new-onset abdominal pain, especially [...] pain. Do not hesitate to call your second rigger or Labor and Delivery with questions. documented [...] for 7 days. 14 Tablet 09/04/2020 09/11/2020 sertraline (ZOLOFT) 25 mg tablet Take 25 mg by mouth daily. 09/18/2022 valACYclovir (Valtrex) 500 mg tabletIndications:Herpes simplex vulvovaginitis Take 1 Tablet (500 mg) by mouth 2 times daily. 14 Tablet 6 06/04/2020 08/16/2020 documented as of this encounter H&P Notes * Tricia Warner MD - 07/14/2020 9:40 PM CDT Obstetric Triage History and Physical Exam Chief Complaint: bleeding HPI: Carito MADISON is a 30 y.o. female at 11w3d gestation with complaints of vaginal bleeding intermittently since 1 pm - two episodes of moderate bleeding. No pelvic pain or cramping. She is anxious because she had a 16w loss with an abruption in a previous . care has been with Dr. Delgado complicated by Patient Active Problem List Diagnosis Code ??? Myalgia, unspecified site M79.10 ??? Arthralgia M25.50 ??? Weakness R53.1 ??? Lupus M32.9 ??? Low serum progesterone R79.89 ??? Herpes simplex vulvovaginitis A60.04 ??? Miscarriage, threatened, early O20.0 OB History Para Term AB Living 3 0 2 0 SAB TAB Ectopic Multiple Live Births 2 # Outcome Date GA Lbr Rojas/2nd Weight Sex Delivery Anes PTL Lv 3 Current 2 SAB SAB 1 SAB SAB Past Medical History: Diagnosis Date ??? Fork's disease ??? Anxiety ??? Connective tissue disease ??? Depression ??? Fibromyalgia ??? Herpes ??? HTN (hypertension) ??? Hx of hyperprolactinemia ??? Lupus Past Surgical History: Procedure Laterality Date ??? HX APPENDECTOMY ??? HX MEDIAN NERVE REPAIR Social History Tobacco Use ??? Smoking status: Former Smoker Packs/day: 0.25 Types: Cigarettes Quit date: 12/11/2017 Years since quittin.5 ??? Smokeless tobacco: Never Used Substance Use Topics ??? Alcohol use: Yes Comment: socially No current facility-administered medications on file prior to encounter. Current Outpatient Medications on File Prior to Encounter Medication Sig Dispense Refill ??? sertraline (ZOLOFT) 25 mg tablet Take 25 mg by mouth daily. ??? progesterone micronized (Prometrium) 200 mg Capsule Take 1 Capsule (200 mg) by mouth daily. 30 Capsule 0 ??? valACYclovir (Valtrex) 500 mg tablet Take 1 Tablet (500 mg) by mouth 2 times daily. 14 Tablet 6 ??? progesterone micronized (Prometrium) 200 mg Capsule Take 1 Capsule (200 mg) by mouth daily. 30 Capsule 4 ??? omeprazole (PriLOSEC) 20 mg Capsule, Delayed Release(E.C.) Take 20 mg by mouth daily. ??? predniSONE (DELTASONE) 10 mg tablet Take 10 mg by mouth 2 times daily with meals. 7.5 mg qd ??? hydroxychloroquine (PLAQUENIL) 200 mg tablet Take 200 mg by mouth daily. Allergies Allergen Reactions ??? Penicillins Hives and Rash ??? Methylprednisolone Syncope ??? Escitalopram Rash Caused seizures Caused seizures Review of Systems: Gen: Denies fevers or chills CV: Denies chest pain Pulm: Denies shortness of breath or cough GI: Denies nausea/vomiting, diarrhea, constipation. : Denies dysuria, vaginal bleeding present Neuro: Denies headaches or visual changes Psych: Denies current symptoms of depression or anxiety Physical Exam: There were no vitals filed for this visit. General: alert, well appearing, in no apparent distress HEENT: anicteric, atraumatic CV: regular rate, rhythm Lungs: regular, unlabored Abdomen: soft, nontender, nondistended, no abnormal masses, no epigastric pain Extremities: no redness or tenderness in the calves or thighs, no edema Psychiatric: appropriate affect, insight Cervix: closed, no blood in vagina Ultrasound: Limited bedside ultrasound performed: live johnson , breech, size grossly appropriate for dates, +FM seen, FCA 161 bpm Labs: No results found for this visit on 07/14/20 (from the past 24 hour(s)). Lab Review: Blood type: A+ per patient report, confirmatory testing ordered. Assessment: 1. 30 y.o. female, at 11w3d with an Estimated Date of Delivery: 01/30/21 2. Bleeding in early - cervix closed, well being reassuring. Plan: 1. bleeding precautions reviewed; plan discharge home in stable condition to follow up with Dr. Delgado as scheduled. Discussed with Dr. Lieberman. Tricia Warner MD 07/14/2020 9:40 PM documented in this encounter Miscellaneous Notes * Care Plan - Lizzie Che, RN - 07/14/2020 9:49 PM CDT 2053 Arrived to Labor and Delivery, ambulatory, for intermittent vaginal bleeding since this afternoon. Escorted to Triage 2. Vital signs taken. Permits signed. History reviewed. 2109 Dr. Warner notified of arrival. New orders received. 2123 Blood drawn and sent to lab. 2129 Dr. Warner in room to evaluate. Ultrasound done. FHT 161. 2209 Reviewed discharge instructions; verbalizes understanding. Discharged home ambulatory. documented in this encounter Plan of Treatment Not on file documented as of this encounter Procedures Procedure Name Priority Date/Time Associated Diagnosis Comments CBC WITH DIFFERENTIAL Stat 07/14/2020 9:24 PM CDT TYPE AND SCREEN Stat 07/14/2020 9:24 PM CDT documented in this encounter Results * (ABNORMAL) CBC WITH DIFFERENTIAL (07/14/2020 9:24 PM CDT) [facility] WBC 9.9 4.5 - 10.5 K/uL 07/14/2020 9:44 PM CDT [facility] RBC 4.08 3.90 - 4.90 M/uL 07/14/2020 9:44 PM CDT [facility] HEMOGLOBIN 12.4 11.8 - 14.8 g/dL 07/14/2020 9:44 PM CDT [facility] HEMATOCRIT 35.8 35.5 - 44.0 % 07/14/2020 9:44 PM CDT [facility] MCV 87.8 82.0 - 99.0 fL 07/14/2020 9:44 PM CDT [facility] MCH 30.3 27.8 - 34.5 pg 07/14/2020 9:44 PM CDT [facility] MCHC 34.5 32.5 - 35.5 g/dL 07/14/2020 9:44 PM CDT [facility] RDW 13.2 11.5 - 14.5 % 07/14/2020 9:44 PM CDT [facility] PLATELETS 280 160 - 420 K/uL 07/14/2020 9:44 PM CDT [facility] MPV 7.6(L) 8.7 - 12.7 fL 07/14/2020 9:44 PM CDT [facility] NEUTROPHILS 75(H) 45 - 70 % 07/14/2020 9:44 PM CDT [facility] LYMPHOCYTES 18 16 - 45 % 07/14/2020 9:44 PM CDT [facility] MONOCYTES 6 3 - 13 % 07/14/2020 9:44 PM CDT [facility] EOSINOPHILS 1 0 - 7 % 07/14/2020 9:44 PM CDT [facility] BASOPHILS 1 0 - 2 % 07/14/2020 9:44 PM CDT [facility] NEUTROPHIL ABSOLUTE 7.40(H) 1.90 - 7.00 K/uL 07/14/2020 9:44 PM CDT [facility] LYMPHOCYTE ABSOLUTE 1.70 0.70 - 4.50 K/uL 07/14/2020 9:44 PM CDT [facility] MONOCYTE ABSOLUTE 0.60 0.10 - 1.30 K/uL 07/14/2020 9:44 PM CDT [facility] EOSINOPHIL ABSOLUTE 0.10 0.00 - 0.70 K/uL 07/14/2020 9:44 PM CDT [facility] BASOPHILS ABSOLUTE 0.10 0.00 - 0.20 K/uL 07/14/2020 9:44 PM CDT [facility] Blood Venipuncture / Unknown 07/14/2020 9:24 PM CDT 07/14/2020 9:40 PM CDT Tricia Warenr MD HEMATOLOGY O RDERABLES Performing Organization Address [facility]/ZIP Co de Phone Number [facility] [id number] [address] [place] [address] * TYPE AND SCREEN (07/14/2020 9:24 PM CDT) ABO GROUP A 07/14/2020 10:43 PM CDT [facility] RH (D) TYPE Positive 07/14/2020 10:43 PM CDT [facility] ANTIBODY SCREEN Negative 07/14/2020 10:43 PM CDT [facility] Blood Venipuncture / Unknown 07/14/2020 9:24 PM CDT 07/14/2020 9:29 PM CDT Tricia Warner MD BLOOD BANK O RDERABLES Performing Organization Address [facility]/ZIP Co de Phone Number [facility] [id number] [address] [place] [address] documented in this encounter Visit Diagnoses Diagnosis Hemorrhage in early Unspecified hemorrhage in early , unspecified as to episode of care documented in this encounter Care Teams Auto Suspension And Steering Mechanic Relationship Specialty Start Date End Date Brian Mon MD [address] [place] [address] PCP - General Internal Medicine 07/15/19 documented as of this encounter
--- OUTSIDE RECORDS SUMMARY | 2024-02-24 20:36 | XMS_ITS | Encounter Summary ---
Author Organization [facility] Address [address] [place] [address] Care Team Providers Care Fine Unhairer Name Role Phone Brian Mon MD Primary Care Provider Reason for Visit * Reason Comments Abstract Encounter Details Date Type Department Care Team (Late st Contact Info) Description 08/26/2020 Abstract [facility] OBGYN [address] [facility] [address] [address] [facility] [address] [place] [address] [place] [address] [facility] [address] [place] [address] Social History Tobacco Use Types [...] on filedocumented in this encounter Care Teams Fine Unhairer Relationship Specialty Start Date End Date Brian Mon MD [address] [place] [address] PCP - General Internal Medicine 07/15/19 documented as of this encounter
--- OUTSIDE RECORDS SUMMARY | 2024-02-24 20:36 | XMS_ITS | Encounter Summary ---
Author Organization [facility] Address [address] [place]: Epic Prelude ADT [place] [address] Care Team Providers Care Poultry Pathologist Name Role Phone Brian Mon MD Primary Care Provider Encounter Details Date Type Department Care Team (Latest Contact Info) Description 06/08/2020 Travel Social History Tobacco Use Types Packs/Day [...] on filedocumented in this encounter Care Teams Poultry Pathologist Relationship Specialty Start Date End Date Brian Mon MD [address] [place] [address] PCP - General Internal Medicine 07/15/19 documented as of this encounter
--- OUTSIDE RECORDS SUMMARY | 2024-02-24 20:36 | XMS_ITS | Encounter Summary ---
Author Organization [facility] Address [address] [place] [address] Care Team Providers Care Pediatric Nurse Name Role Phone Brian Mon MD Primary Care Provider [phone] Reason for Visit * Reason Onset Date Comments Problem 07/30/2020 Encounter Details Date Type Department Care Team (Late st Contact Info) Description 07/30/2020 Telephone [facility] OBGYN [address], [place] [address] [place] [address] [facility] [address], [place] [address] Problem Social History Tobacco Use Types Packs/Day [...] Telephone Encounter - Iris Lucio RN - 07/30/2020 8:48 AM CDT Spoke with pt regarding flu like symptoms. Instructed pt to go to ER or urgent care if she is running a fever that Tylenol is not helping. States she doesn't think she has insurance anymore and she has already been twice this week. She said her strep, flu and COVID test were all negative. Educated her on the possibility of testing too early and could possibly be positive now. Pt states she will try to call her MFM again. * Telephone Encounter - Amanda Dong - 07/30/2020 8:11 AM CDT Patient was seen in ER 2 nights ago for body aches. She was tested for COVID and Strep, both were negative. She now has a 102F, body aches, cramping, just overall not feeling well. She is 13 weeks . Please advise. documented in this encounter Plan of Treatment Not on file documented as of this encounter Visit Diagnoses Not on filedocumented in this encounter Care Teams Pediatric Nurse Relationship Specialty Start Date End Date Brian Mon MD [address] [place] [address] PCP - General Internal Medicine 07/15/19 documented as of this encounter
--- OUTSIDE RECORDS SUMMARY | 2024-02-24 20:36 | XMS_ITS | Encounter Summary ---
Author Organization [facility] Address [address] [place]: Epic Prelude ADT [place] [address] Care Team Providers Care Preparatory Technician Name Role Phone Brian Mon MD Primary Care Provider [phone] Encounter Details Date Type Department Care Team (Latest Contact Info) Description 06/24/2020 Travel Social History Tobacco Use Types Packs/Day [...] on filedocumented in this encounter Care Teams Preparatory Technician Relationship Specialty Start Date End Date Brian Mon MD [address] [place] [address] PCP - General Internal Medicine 07/15/19 documented as of this encounter
--- OUTSIDE RECORDS SUMMARY | 2024-02-24 20:36 | XMS_ITS | Encounter Summary ---
Author Organization [facility] Address [address] [place] [address] Care Team Providers Care Front Desk Manager Name Role Phone Brian Mon MD Primary Care Provider Reason for Visit * Reason Onset Date Comments Miscarriage 06/12/2020 Encounter Details Date Type Department Care Team (Late st Contact Info) Description 06/12/2020 Nurse Triage [facility] Nurse mobile application development lead [address] [place] [address] Maryam Ibrahim, RN Social History Tobacco Use Types Packs/Day [...] Miscellaneous Notes * Telephone Encounter - Maryam Ibrahim RN - 06/12/2020 8:16 AM CDT Report given to Dr Sellers. He would like to have patient call the office when they open to get an appointment to be seen today. Gave patient instructions. She will call the clinic when they open. * Telephone Encounter - Maryam Ibrahim RN - 06/12/2020 7:45 AM CDT Reason for Disposition ??? Passed tissue (e.g., tejeda-white) Protocols used: - THREATENED MISCARRIAGE FOLLOW-UP CALL-A- Patient declines going to the ED. She would like to be seen in the office instead. Page sent out sarah. documented in this encounter Plan of Treatment Not on file documented as of this encounter Visit Diagnoses Not on filedocumented in this encounter Care Teams Front Desk Manager Relationship Specialty Start Date End Date Brian Mon MD [address] [place] [id number] PCP - General Internal Medicine 07/15/19 documented as of this encounter
--- OUTSIDE RECORDS SUMMARY | 2024-02-24 20:36 | XMS_ITS | Encounter Summary ---
Author Organization [facility] Address [address] [place] [address] Care Team Providers Care Brass Cleaner Name Role Phone Brian Mon MD Primary Care Provider Reason for Visit * Reason Comments Routine Visit Encounter Details Date Type Department Care Team (Late st Contact Info) Description 06/24/2020 2:40 PM CDT visit [facility] OBGYN [address] [facility] [address] [place] [address] [place] [address] [facility] [address] [place] [address] Other forms of systemic lupus erythematosus, unspecified organ involvement status (Primary Dx); Low serum progesterone; H/O miscarriage, currently , first trimester Social [...] Sign Reading Time Taken Comments Blood Pressure 118/78 06/24/2020 2:31 PM CDT Pulse - - Temperature - - Respiratory Rate - - Oxygen Saturation - - Inhaled Oxygen Concentration - - Weight 78.5 kg (173 lb) 06/24/2020 2:31 PM CDT Height 160 cm (5' 3 ) 06/24/2020 2:31 PM CDT Body Mass Index 30.65 06/24/2020 2:31 PM CDT documented in this encounter Progress Notes * Sheldon Delgado MD - 06/24/2020 3:09 PM CDT [facility]st[facility]rical [facility] Visit 30 y.o. S: This patient is having bleeding. She has not passed any tissue. She has cramping. She has depression and anxiety. She denies having any herpetic genitalia breakouts. She is currently taking Xanax and Zoloft. I asked her to stop both of these medications. She is going to continue the progesteroneuntil she is 10 weeks . She is going to see the maternal- medicine specialist at [facility]. She has been seeing the maternal- medicine specialist at [facility]. O: Vitals: 06/24/20 1431 BP: 118/78 Fundus is normal in size. heart tones are within normal limits. Her abdomen is , soft and not tender. There is no evidence of a DVT. A/P EDC- 01/30/2021 Herpes history: YES Prior history: none GDM in prior pregancy: na GBS in prior : na High Risk Category HERPES LUPUS ADDISONS On baby ASA Buspar- she quit secondary to side effects I told her to stop Zoloft and Xanax Wants NIPT test A total of 20 minutes were spent [...] explaining procedures and managing the patients expectations. Altaf discussed in detail including risks and alternatives. This report was transcribed using [employer] speaking voice recognition system. Despite editing there may be minor grammatical and/or minor typographical errors in this buildings and grounds supervisor due to thelimitations inherent with voice activated computer dictation. This should not adversely affect the overall integrity of the document. Please call for any questions or clarifications as needed. Laundry Operator Wash Room was present the entire visit including the examination, Stacey An ultrasound was done today. I reviewed all of the images and results. I discussed the results with the patient. I discussed my impression with the patient. Follow-up regarding this ultrasound was given. The treatment plan was discussed and agreed upon. documented in this encounter Plan of Treatment Scheduled Orders Name Type Priority Associated Diagnoses Orde r Schedule NON-INVASIVE TESTING PANEL (NIPT) Lab Routine Other forms of systemic lupus erythematosus, unspecified organ involvement status Low serum progesterone H/O miscarriage, currently , first trimester Expected: 06/30/2020, Expires: 06/24/2021 documented as of this encounter Visit Diagnoses Diagnosis Other forms of systemic lupus erythematosus, unspecified organ involvement status- Primary Low serum progesterone H/O miscarriage, currently , first trimester documented in this encounter Care Teams Brass Cleaner Relationship Specialty Start Date End Date Brian Mon MD [address] [place] [address] PCP - General Internal Medicine 07/15/19 documented as of this encounter
--- OUTSIDE RECORDS SUMMARY | 2024-02-24 20:36 | XMS_ITS | Encounter Summary ---
Author Organization [facility] Address [address] [place]: Epic Prelude ADT [place] [address] Care Team Providers Care Lapeler Name Role Phone Brian Mon MD Primary Care Provider Encounter Details Date Type Department Care Team (Latest Contact Info) Description 08/13/2020 Travel Social History Tobacco Use Types Packs/Day [...] have Coronavirus / COVID-19? Unable to assess 08/13/2020 7:02 AM CDT documented as of this encounter Plan of Treatment Not on file documented as of this encounter Visit Diagnoses Not on filedocumented in this encounter Care Teams Lapeler Relationship Specialty Start Date End Date Brian Mon MD [address] [place] [address] PCP - General Internal Medicine 07/15/19 documented as of this encounter
--- OUTSIDE RECORDS SUMMARY | 2024-02-24 20:36 | XMS_ITS | Encounter Summary ---
Author Organization [facility] Address [address] [place] [address] Care Team Providers Care Literacy Specialist Name Role Phone Brian Mon MD Primary Care Provider Reason for Visit * Reason Comments Bad cramping felt like something tore. N o more breast tender Encounter Details Date Type Department Care Team (Latest Contact Info) Description 06/29/2020 11:00 AM CDT Initial [facility] OBGYN [address] [facility] [id number] [place] [address] [address] [place] [address] [place] [address] [facility] [address] [place] [address] Low serum progesterone (Primary Dx); Miscarriage, threatened, early ; 9 weeks gestation of Social History Tobacco Use Types Packs/Day Years [...] - Inhaled Oxygen Concentration - - Weight 79 kg (174 lb 3.2 oz) 06/29/2020 11:44 AM CDT Height 160 cm (5' 3 ) 06/29/2020 11:44 AM CDT Body Mass Index 30.86 06/29/2020 11:44 AM CDT documented in this encounter Progress Notes * Sheldon Delgado MD - 06/29/2020 12:15 PM CDT [facility] ENGINEERING DESIGN SUPERVISOR Clinic on [facility] Carito MADISON 30 y.o. 1990 HISTORY Chief Complaint Patient presents with ??? Bad cramping felt like something tore. No more breast tender HPI: 30 y.o., , No LMP recorded (lmp unknown). Patient is ., This patient complains of cramping and pelvic pain without vaginal bleeding. She denies passing tissue. Past Medical History: Diagnosis Date ??? Gume's disease ??? Anxiety ??? Connective tissue disease ??? Depression ??? Fibromyalgia ??? Herpes ??? HTN (hypertension) ??? Hx of hyperprolactinemia ??? Lupus Past Surgical History: Procedure Laterality Date ??? HX APPENDECTOMY ??? HX MEDIAN NERVE REPAIR No family history on file. Current Outpatient Medications: ??? sertraline (ZOLOFT) 25 mg tablet, Take 25 mg by mouth daily., Disp: , Rfl: ??? busPIRone (BUSPAR) 7.5 mg Tablet, Take 1 Tablet (7.5 mg) by mouth 2 times daily., Disp: 60 Tablet, Rfl: 7 ??? progesterone micronized (Prometrium) 200 mg Capsule, Take 1 Capsule (200 mg) by mouth daily., Disp: 30 Capsule, Rfl: 0 ??? ondansetron (Zofran ODT) 8 mg Tablet, Rapid Dissolve, Dissolve 1 tablet on top of tongue then swallow with saliva every 8 hours as needed for nausea or vomiting, Disp: 30 Tablet, Rfl: 0 ??? valACYclovir (Valtrex) 500 mg tablet, Take 1 Tablet (500 mg) by mouth 2 times daily., Disp: 14 Tablet, Rfl: 6 ??? progesterone micronized (Prometrium) 200 mg Capsule, Take 1 Capsule (200 mg) by mouth daily., Disp: 30 Capsule, Rfl: 4 ??? omeprazole (PriLOSEC) 20 mg Capsule, Delayed Release(E.C.), Take 20 mg by mouth daily., Disp: ,Rfl: ??? predniSONE (DELTASONE) 10 mg tablet, Take 10 mg by mouth 2 times daily with meals., Disp: , Rfl: ??? ALPRAZolam (XANAX) 0.25 mg tablet, Take 0.25 mg by mouth 3 times daily as needed for Anxiety., Disp: , Rfl: ??? hydroxychloroquine (PLAQUENIL) 200 mg tablet, Take 200 mg by mouth daily., Disp: , Rfl: Allergies Allergen Reactions ??? Penicillins Hives and Rash ??? Methylprednisolone Syncope ??? Escitalopram Rash Caused seizures Caused seizures OB History Para Term AB Living 3 0 0 0 2 0 SAB TAB Ectopic Multiple Live Births 2 0 0 0 0 # Outcome Date GA Lbr Rojas/2nd Weight Sex Delivery Anes PTL Lv 3 Current 2 SAB SAB 1 SAB SAB Social History Socioeconomic History ??? Marital status: [...] Sexual Activity ??? Alcohol use: Yes Comment: socially ??? Drug use: Not Currently Types: Marijuana, Cocaine Comment: one time use 12/2017 ??? Sexual activity: Yes Partners: Male Other [...] Gatherings with Friends and Family: ??? Attends Sabianism Services: ??? Active Member of Clubs or Organizations: ??? Attends Club or Organization Meetings: ??? Marital Status: Intimate Partner Violence: ??? Fear of Current or Ex-Partner: ??? Emotionally Abused: ??? Physically Abused: ??? Sexually Abused: ROS: Constitutional: no high fevers, chills, extreme fatigue Psychosocial: no depression, delusions, Cardiovascular: no severe chest pain Respiratory: no SOB, productive cough HEENT: no edema or trauma Breast: no mastitis or masses Gastrointestinal: no watery diarrhea, stool changes, incontinence of flatus Endocrine: dry skin, hair growth, hair loss, increase thirst, Genitourinary: urinary incontinence, urinary urgency, dysuria, vasomotor symptoms, PHYSICAL EXAMINATION Vitals: 06/29/20 1144 Weight: 79 kg (174 lb 3.2 oz) Height: 5' 3 (1.6 m) Body mass index is 30.86 kg/m??. Head: normocephalic and atraumatic Neck: normal without enlarged thyroid, no thyroid nodules are noted. Skin: warm and dry. Cardiovascular: RRR, I do not appreciate a gallop. Lungs: Clear without crackles and wheezes Abdomen: soft, not an acute abdomen, not distended, no guarding Lower Extremities: She has no evidence of a deep venous thrombosis. Pelvic: director of institutional sales present at exam, the vulva is without lesions, the clitoris is within normal limits without irritation or erythema, the perineal body is intact, the vagina is without masses or discharge, normal vaginal rugae are noted. Both adnexa palpate within normal limits. The cervix is without discharge and CMT. The uterus is normal in size shape and contour Breast Examination: Not done Encounter Diagnoses Code Name Primary? R79.89 Low serum progesterone Yes ??? O20.0 Miscarriage, threatened, early ??? Z3A.09 9 weeks gestation of PLAN: Single viable intrauterine seen. No abruption seen. My medical assistant cardiology was present. An ultrasound was done today. I reviewed all of the images and results. I discussed the results with the patient. I discussed my impression with the patient. Follow-up regarding this ultrasound was given. The treatment plan was discussed and agreed upon.A total of 23 minutes were spent in the examination room [...] patients expectations. This report was transcribed using [employer] speaking voice recognition system. Despite editing there may be minor grammatical and/or minor typographical errors in this suede cleaner due to thelimitations inherent with voice activated computer dictation. This should not adversely affect the overall integrity of the document. Please call for any questions or clarifications as needed. documented in this encounter Plan of Treatment Not on file documented as of this encounter Visit Diagnoses Diagnosis Low serum progesterone- Primary Miscarriage, threatened, early Threatened , unspecified as to episode of care 9 weeks gestation of state, incidental documented in this encounter Care Teams Literacy Specialist Relationship Specialty Start Date End Date Biran Mon MD [address] [place] [address] PCP - General Internal Medicine 07/15/19 documented as of this encounter
--- OUTSIDE RECORDS SUMMARY | 2024-02-24 20:36 | XMS_ITS | Encounter Summary ---
Author Organization [facility] Address [address] [place] [address] Care Team Providers Care Parking Assistant Name Role Phone Brian Mon MD Primary Care Provider Encounter Details Date Type Department Care Team (Late st Contact Info) Description 06/17/2020 3:00 PM CDT Ancillary Procedure [facility] OBGYN [address] [place] [address] Social History Tobacco Use Types [...] Associated Diagnosis Comments US OB TRANSVAGINAL Routine 06/18/2020 8: 56 AM CDT Threatened in early documented in this encounter Results * US OB TRANSVAGINAL (06/18/2020 8:56 AM CDT) CRL ([place]) [facility] OBGYN [address] Sac Diameter [facility] O BGYN [address] FHR [facility] OBGY N [address] Anatomical Region Laterality Modality Pelvis Ultrasound Narrative 06/18/2020 8:56 AM CDT Vaginal probe ultrasound. Indication: Threatened at 7 weeks gestation Results include but are not limited to a heart rate at 155 bpm, uterus measures 10.64 cm x 5.08 cm, left ovary measures 2.81 cm x 2.34 cm and the right ovary measures 1.59 cm x 1.76 cm. ??She did have a small left ovarian simple follicle. ??The crown-rump length measures 1.16 cm or 7 weeks and 2 days gestation. Impression: Single viable intrauterine with positive cardiac activity. ??There is no evidence of subchorionic hematoma at this time. Plan: She is going to get a follow-up ultrasound in the center. Sheldon Delgado MD US ORDERABLES documented in this encounter Visit Diagnoses Not on filedocumented in this encounter Care Teams Parking Assistant Relationship Specialty Start Date End Date Brian Mon MD [address] [place] [address] PCP - General Internal Medicine 07/15/19 documented as of this encounter
--- OUTSIDE RECORDS SUMMARY | 2024-02-24 20:36 | XMS_ITS | Encounter Summary ---
Author Organization [facility] Address [address] [place]: Epic Prelude ADT [place] [address] Care Team Providers Care Math Professor Name Role Phone Brian Mon MD Primary Care Provider [phone] Encounter Details Date Type Department Care Team (Latest Contact Info) Description 06/29/2020 Travel Social History Tobacco Use Types Packs/Day [...] on filedocumented in this encounter Care Teams Math Professor Relationship Specialty Start Date End Date Brian Mon MD [address] [place] [address] PCP - General Internal Medicine 07/15/19 documented as of this encounter
--- OUTSIDE RECORDS SUMMARY | 2024-02-24 20:36 | XMS_ITS | Encounter Summary ---
Author Organization [facility] Address [address] [place] [address] Care Team Providers Care Brake Drum Lathe Operator Name Role Phone Brian Mon MD Primary Care Provider Reason for Referral * Eval and Treat (2-4 Days) - Closed Specialty Diagnoses / Procedures Referred By Jud freeman Referred To Contact Perinatology Diagnoses Miscarriage, threatened, early Other forms of systemic lupus erythematosus, unspecified [place] [address] [facility] [address] [place] [address] [facility] [place] [address] [facility] [place] [address] Referral ID Status Reason Start Date Expiration Date Visits Requested Visits Authorized [id number] Closed Performing Department to Schedule 06/17/2020 06/17/2021 1 1 Scheduling Instructions LUPUS, threatened miscarriage, exposure to Xanax and Zoloft in the first trimester. Reason for Visit * Reason Comments Problem Encounter Details Date Type Department Care Team (Late Contact Info) Description 06/17/2020 2:40 PM CDT visit [facility] OBGYN [address] [facility] [address] [address] [facility] [address] [place] [address] [place] [address] [facility] [address] [address] Miscarriage, threatened, early (Primary Dx); Less than 8 weeks gestation of ; Other forms of systemic lupus erythematosus, unspecified organ involvement status; Situational mixed anxiety and depressive disorder; Encounter to establish gestational age using ultrasound; Threatened in early ; Low serum progesterone; Nausea Social History Tobacco Use Types Packs/Day [...] Sign Reading Time Taken Comments Blood Pressure 124/74 06/17/2020 3:35 PM CDT Pulse - - Temperature - - Respiratory Rate - - Oxygen Saturation - - Inhaled Oxygen Concentration - - Weight 78.7 kg (173 lb 9.6 oz) 06/17/2020 3:35 P M CDT Height 160 cm (5' 3 ) 06/17/2020 3:35 PM CDT Body Mass Index 30.75 06/17/2020 3:35 PM CDT documented in this encounter Progress Notes * Sheldon Delgado MD - 06/17/2020 3:11 PM CDT [facility] Obstetrical Clinic Visit 30 y.o. S: [...] to see the maternal- medicine specialist at [facility]. She has been seeing the maternal- medicine specialist at [facility]. O: Vitals: 04/22/21 1535 BP: 124/74 Fundus is normal in size. heart tones are within normal limits. Her abdomen is , soft and not tender. There is no evidence of a DVT. A/P EDC- 01/30/2021 Herpes history: YES Prior history: none GDM in prior pregancy: na GBS in prior : na High Risk Category HERPES LUPUS On baby ASA Buspar I told her to stop Zoloft and [...] and alternatives. This report was transcribed using [employer] speaking voice recognition system. Despite editing there may be minor grammatical and/or minor typographical errors in this puffer tender due to thelimitations inherent with voice activated computer dictation. This should not adversely affect the overall integrity of the document. Please call for any questions or clarifications as needed. Power Plant Operators Supervisor was present the entire visit including the [...] Diagnoses Orde r Schedule AMB REFERRAL TO PERINATOLOGY Outpatient Referral Routine Miscarriage, threatened, early Other forms of systemic lupus erythematosus, unspecified organ involvement status Ordered: 06/17/2020 documented as of this encounter Visit Diagnoses Diagnosis Miscarriage, threatened, early - Primary Threatened , unspecified as to episode of care Less than 8 weeks gestation of state, incidental Other forms of systemic lupus erythematosus, unspecified organ involvement status Situational mixed anxiety and depressive disorder Adjustment disorder with mixed anxiety and depressed mood Encounter to establish gestational age using ultrasound Encounter for routine screening for malformation using ultrasonics Threatened in early Threatened , unspecified as to episode of care Low serum progesterone Nausea Nausea alone documented in this encounter Care Teams Brake Drum Lathe Operator Relationship Specialty Start Date End Date Brian Mon MD [address] [place] [address] PCP - General Internal Medicine 07/15/19 documented as of this encounter
--- OUTSIDE RECORDS SUMMARY | 2024-02-24 20:36 | XMS_ITS | Encounter Summary ---
Author Organization [facility] Address [address] [place]: Epic Prelude ADT [place] [address] Care Team Providers Care Integrated Marketing Specialist Name Role Phone Brian Mon MD Primary Care Provider Encounter Details Date Type Department Care Team (Latest Contact Info) Description 08/03/2020 Travel Social History Tobacco Use Types Packs/Day [...] on filedocumented in this encounter Care Teams Integrated Marketing Specialist Relationship Specialty Start Date End Date Brian Mon MD [address] [place] [address] PCP - General Internal Medicine 07/15/19 documented as of this encounter
--- OUTSIDE RECORDS SUMMARY | 2024-02-24 20:36 | XMS_ITS | Encounter Summary ---
Author Organization [facility] Address [address] [place]: Epic Prelude ADT [place] [address] Care Team Providers Care Laser Machine Operator Name Role Phone Brian Mon MD Primary Care Provider Encounter Details Date Type Department Care Team (Latest Contact Info) Description 08/17/2020 Travel Social History Tobacco Use Types Packs/Day [...] on filedocumented in this encounter Care Teams Laser Machine Operator Relationship Specialty Start Date End Date Brian Mon MD [address] [place] [address] PCP - General Internal Medicine 07/15/19 documented as of this encounter
--- OUTSIDE RECORDS SUMMARY | 2024-02-24 20:36 | XMS_ITS | Encounter Summary ---
Author Organization [facility] Address [address] [place]: Epic Prelude ADT [place] [address] Care Team Providers Care Customer Experience Analyst Name Role Phone Brian Mon MD Primary Care Provider Encounter Details Date Type Department Care Team (Latest Contact Info) Description 07/14/2020 Travel Social History Tobacco Use Types Packs/Day [...] filedocumented in this encounter Care Teams Customer Experience Analyst Relationship Specialty Start Date End Date Brina Mon MD [address] [place] [address] PCP - General Internal Medicine 07/15/19 documented as of this encounter
--- OUTSIDE RECORDS SUMMARY | 2024-02-24 20:36 | XMS_ITS | Encounter Summary ---
Author Organization [facility] Address [address] [place] [address] Care Team Providers Care All Purpose Clerk Name Role Phone Brian Mon MD Primary Care Provider Reason for Visit * Reason Onset Date Comments Wants Appointment 06/29/2020 Encounter Details Date Type Department Care Team (Late st Contact Info) Description 06/29/2020 Telephone [facility] OBGYN [address] [place] [address] [place] [address] [facility] [address], [place] [address] Wants Appointment Social History Tobacco [...] * Telephone Encounter - Rosaura Chaudhary - 06/29/2020 7:10 AM CDT I made an appointment for Carito to come in at 11:10 today. * Telephone Encounter - Rosaura Chaudhary - 06/29/2020 7:10 AM CDT ----- Message from Carito MADISON sent at 06/29/2020 6:59 AM CDT ----- Regarding: RE: Visit Follow-Up Question Contact: Yes or any earlier? ----- Message ----- From: Office of Dr. Tiffany Delgado Sent: 06/29/20, 6:58 AM To: Carito MADISON Subject: RE: Visit Follow-Up Question Carito, Can you be here at 11:10 this morning? Brendan ----- Message ----- From:Carito MADISON Sent:06/29/2020 4:55 AM CDT To:Dr. Tiffany Delgado Subject:RE: Visit Follow-Up Question My abdomen is also very sore and hard it's weird I feel really different ----- Message ----- From:Office of Dr. Tiffany Delgado Sent:06/16/2020 9:22 AM CDT To:Carito MADISON Subject:RE: Visit Follow-Up Question Dr. Danny Calderón is not in the office on . Would you like to see one of the Nurse Practitioners? ----- Message ----- From:Carito MADISON Sent:06/16/2020 9:15 AM CDT To:Dr. Tiffany Delgado Subject:RE: Visit Follow-Up Question Anyway I could get in today? I call the office and you can never get through anymore ----- Message ----- From:Office of Dr. Tiffany Delgado Sent:06/12/2020 9:02 AM CDT To:Carito MADISON Subject:RE: Visit Follow-Up Question Radames, please call my office on Sunday to [...] on filedocumented in this encounter Care Teams All Purpose Clerk Relationship Specialty Start Date End Date Brian Mon MD [address] [place] [address] PCP - General Internal Medicine 07/15/19 documented as of this encounter
--- OUTSIDE RECORDS SUMMARY | 2024-02-24 20:36 | XMS_ITS | Encounter Summary ---
Author Organization [facility] Address [address] [place] [address] Care Team Providers Care Director Mba Name Role Phone Brian Mon MD Primary Care Provider Reason for Visit * Reason Comments Routine Visit Encounter Details Date Type Department Care Team (Late st Contact Info) Description 07/13/2020 8:40 AM CDT visit [facility] OBGYN [address] [facility] [address] [place] [address] [address] [place] [address] [place] [address] [facility] [address] [address] Encounter to determine viability of , single or unspecified fetus (Primary Dx) Social History Tobacco Use Types [...] Reading Time Taken Comments Blood Pressure 116/72 07/13/2020 9:21 AM CDT Pulse - - Temperature - - Respiratory Rate - - Oxygen Saturation - - Inhaled Oxygen Concentration - - Weight 79.7 kg (175 lb 12.8 oz) 07/13/2020 9:21 AM CDT Height 160 cm (5' 3 ) 07/13/2020 9:21 AM CDT Body Mass Index 31.14 07/13/2020 9:21 AM CDT documented in this encounter Progress Notes * Sheldon Delgado MD - 07/13/2020 9:54 AM CDT [facility] Obstetrical Clinic Visit 30 y.o. S: This patient denies bleeding, loss of fluid, cramping and emesis. O: Vitals: 07/13/20 0921 BP: 116/72 Fundus is normal in size. heart tones are within normal limits. Her abdomen is , soft and not tender. There is no evidence of a DVT. A/P EDC- 01/30/2021 Herpes history: YES G1PO High Risk Category HERPES LUPUS ADDISONS Baby ASA On prednisone/hydroxychloroquine and Zoloft. She did take progesterone until 12 weeks gestation. She is being followed in the maternal- medicine Center at [facility]. documented in this encounter Plan of Treatment Not on file documented as of this encounter Visit Diagnoses Diagnosis Encounter to determine viability of , single or unspecified fetus- Primary documented in this encounter Care Teams Director Mba Relationship Specialty Start Date End Date Brian Mon MD [address] [place] [address] PCP - General Internal Medicine 07/15/19 documented as of this encounter
--- OUTSIDE RECORDS SUMMARY | 2024-02-24 20:36 | XMS_ITS | Encounter Summary ---
Author Organization [facility] Address [address] [place] [address] Care Team Providers Care Electroformer Name Role Phone Brian Mon MD Primary Care Provider Reason for Visit * Reason Onset Date Comments New Prescription Request 08/16/2020 Encounter Details Date Type Department Care Team (Late st Contact Info) Description 08/16/2020 Telephone [facility] OBGYN [address] [facility] [address] [address] [facility] [address] [place] [address] [place] [address] [place] [address] New Prescription Request Social History Tobacco Use Types Packs/Day [...] Telephone Encounter - Iris Lucio RN - 08/16/2020 10:47 AM CDT Sent refill for requested meds to pharmacy of choice. * Telephone Encounter - Og Donga - 08/16/2020 8:33 AM CDT Patient states she has a herpes outbreak. She would like Valtrex 500mg, same as in May, sent to pharmacy. She is also inquiring if we can refill her Zofran Because she is still vomiting daily. Please call with any problems. documented in this encounter Plan of Treatment Not on file documented as of this encounter Visit Diagnoses Diagnosis Herpes simplex vulvovaginitis documented in this encounter Care Teams Electroformer Relationship Specialty Start Date End Date Brian Mon MD [address] [place] [address] PCP - General Internal Medicine 07/15/19 documented as of this encounter
--- OUTSIDE RECORDS SUMMARY | 2024-02-24 20:37 | XMS_ITS | Encounter Summary ---
Author Organization [facility] Address [address] [place] [address] Care Team Providers Care X Ray Equipment Mechanic Name Role Phone Brian Mon MD Primary Care Provider Encounter Details Date Type Department Care Team (Late st Contact Info) Description 05/30/2019 Digital Self COVID-1 9 Monitoring [place] ABSTRACTION Provider, Abstract NO ADDRESS ON [...] suspected to have Coronavirus / COVID-19? Yes 05/30/2019 11:26 AM CDT documented as of this encounter Plan of Treatment Not on file documented as of this encounter Visit Diagnoses Not on filedocumented in this encounter Additional Health Concerns Infection Onset Date Last Indicated Resolved Time R/O COVID-19 06/02/2019 06/02/2019 06/04/2019 11:0 7 AM CDT R/O COVID-19 07/15/2019 07/15/2019 07/17/2019 7:43 AM CDT R/O COVID-19 08/10/2019 08/10/2019 08/10/2019 4:24 PM CDT R/O COVID-19 10/23/2019 10/23/2019 10/24/2019 4:18 AM CDT documented as of this encounter Care Teams X Ray Equipment Mechanic Relationship Specialty Start Date End Date Brian Mon MD [address] [place] [id number] PCP - General Internal Medicine 07/15/19 documented as of this encounter
--- OUTSIDE RECORDS SUMMARY | 2024-02-24 20:37 | XMS_ITS | Encounter Summary ---
Author Organization [facility] Address [address] [place]: Epic Prelude ADT [place] [address] Care Team Providers Care Gas Torch Solderer Name Role Phone Brian Mon MD Primary Care Provider Encounter Details Date Type Department Care Team (Latest Contact Info) Description 05/08/2020 Travel Social History Tobacco Use Types Packs/Day Years Used Date Smoking Tobacco: Some Days Cigarettes Last attempted to quit: 12/11/2017 Smokeless Tobacco: Never Alcohol Use Standard [...] have Coronavirus / COVID-19? No / Unsure 05/08/2020 7:05 PM STITCHDOWN THREAD LASTER documented as of this encounter Plan of Treatment Not on file documented as of this encounter Visit Diagnoses Not on filedocumented in this encounter Care Teams Gas Torch Solderer Relationship Specialty Start Date End Date Brian Mon MD [address] [place] [address] PCP - General Internal Medicine 07/15/19 documented as of this encounter
--- OUTSIDE RECORDS SUMMARY | 2024-02-24 20:37 | XMS_ITS | Encounter Summary ---
Author Organization [facility] Address [address] [place]: Epic Prelude ADT [place] [address] Care Team Providers Care Pattern Chain Maker Supervisor Name Role Phone Brian Mno MD Primary Care Provider Encounter Details Date Type Department Care Team (Latest Contact Info) Description 08/10/2019 Travel Social History Tobacco Use Types Packs/Day [...] have Coronavirus / COVID-19? No / Unsure 08/10/2019 2:36 PM CDT documented as of this encounter Plan of Treatment Not on file documented as of this encounter Visit Diagnoses Not on filedocumented in this encounter Additional Health Concerns Infection Onset Date Last Indicated Resolved Time R/O COVID-19 08/10/2019 08/10/2019 08/10/2019 4:24 PM CDT documented as of this encounter Care Teams Pattern Chain Maker Supervisor Relationship Specialty Start Date End Date Brian Mon MD [address] [place] [phone] PCP - General Internal Medicine 07/15/19 documented as of this encounter
--- OUTSIDE RECORDS SUMMARY | 2024-02-24 20:37 | XMS_ITS | Encounter Summary ---
Author Organization [facility] Address [address] [place] [address] Care Team Providers Care Ob/Gyn Name Role Phone Brian Mon MD Primary Care Provider Reason for Visit * Reason Onset Date Comments Abnormal Lab Results 05/17/2020 Encounter Details Date Type Department Care Team (Late st Contact Info) Description 05/17/[address] [facility] OBGYN [address] [facility] [address] [address] [facility] [address] [place] [address] [place] [address] [place] [address] Abnormal Lab Results Social History Tobacco Use Types [...] have Coronavirus / COVID-19? No / Unsure 05/11/2020 3:04 PM CDT documented as of this encounter Miscellaneous Notes * Telephone Encounter - Genoveva Mccoy - 05/17/2020 3:55 PM CDT Pt wants to discuss lab results with you or Dr Delgado; really concerned with results and low to nosex drive documented in this encounter Plan of Treatment Not on file documented as of this encounter Visit Diagnoses Not on filedocumented in this encounter Care Teams Ob/Gyn Relationship Specialty Start Date End Date Brian Mon MD [address] [place] [address] PCP - General Internal Medicine 07/15/19 documented as of this encounter
--- OUTSIDE RECORDS SUMMARY | 2024-02-24 20:37 | XMS_ITS | Encounter Summary ---
Author Organization [facility] Address [address] [place] [address] Care Team Providers Care Shipper And Receiving Name Role Phone Huseyin Dangelo MD Primary Care Provider [phone] Encounter Details Date Type Department Care Team (Late st Contact Info) Description 06/02/[address] [id number] Leena Colon NP Social History Tobacco Use Types Packs/Day Years [...] encounter Miscellaneous Notes * Telephone Encounter - Leena Colon NP - 06/02/2019 12:08 PM CDT Patient called in regards to text message of new or worsening symptoms or concerns. No answer and voicemail message left for patient to call back. documented in this encounter Plan of Treatment Not on file documented as of this encounter Visit Diagnoses Not on filedocumented in this encounter Additional Health Concerns Infection Onset Date Last Indicated Resolved Time R/O COVID-19 06/02/2019 06/02/2019 06/04/2019 11:0 7 AM CDT documented as of this encounter Care Teams Shipper And Receiving Relationship Specialty Start Date End Date Huseyin Dangelo MD PCP - General 09/29/17 07/14/19 documented as of this encounter
--- OUTSIDE RECORDS SUMMARY | 2024-02-24 20:37 | XMS_ITS | Encounter Summary ---
Author Organization [facility] Address [address] [place] [address] Care Team Providers Care Outbound Sales Professional Name Role Phone Huseyin Dangelo MD Primary Care Provider [phone] Encounter Details Date Type Department Care Team (Late st Contact Info) Description 06/03/[address] [id number] Brandy Nash RN Social History Tobacco Use Types Packs/Day [...] encounter Miscellaneous Notes * Telephone Encounter - Brandy Nash RN - 06/03/2019 11:28 AM CDT Patient was contacted via SMS to assess symptoms. LM to return call Brandy Nash RN documented in this encounter Plan of Treatment Not on file documented as of this encounter Visit Diagnoses Not on filedocumented in this encounter Additional Health Concerns Infection Onset Date Last Indicated Resolved Time R/O COVID-19 06/02/2019 06/02/2019 06/04/2019 11:0 7 AM CDT documented as of this encounter Care Teams Outbound Sales Professional Relationship Specialty Start Date End Date Huseyin Dangelo MD PCP - General 09/29/17 07/14/19 documented as of this encounter
--- OUTSIDE RECORDS SUMMARY | 2024-02-24 20:37 | XMS_ITS | Encounter Summary ---
Author Organization [facility] Address [address] [place] [address] Care Team Providers Care Review Consultant Name Role Phone Brian Mon MD Primary Care Provider Encounter Details Date Type Department Care Team (Late st Contact Info) Description 05/12/2020 Orders Only [facility] OBGYN [address] [facility] [address] [address] [facility] [address] [place] [address] [place] [address] [place] [address] Chronic vaginitis Social History Tobacco Use Types Packs/Day Years [...] of this encounter Visit Diagnoses Diagnosis Chronic vaginitis Vaginitis and vulvovaginitis, unspecified documented in this encounter Care Teams Review Consultant Relationship Specialty Start Date End Date Brian Mon MD [address] [place] [address] PCP - General Internal Medicine 07/15/19 documented as of this encounter
--- OUTSIDE RECORDS SUMMARY | 2024-02-24 20:37 | XMS_ITS | Encounter Summary ---
Author Organization [facility] Address [address] [place] [address] Care Team Providers Care Director Of Orthopedics Name Role Phone Huseyin Dangelo MD Primary Care Provider [phone] Encounter Details Date Type Department Care Team (Late st Contact Info) Description 05/31/[address] [address] Kristie Aponte FNP [address] [place] [address] Social History Tobacco Use Types Packs/Day Years [...] Miscellaneous Notes * Telephone Encounter - Kristie Aponte FNP - 05/31/2019 7:54 PM CDT Called patient for survey follow up. LVM documented in this encounter Plan of Treatment Not on file documented as of this encounter Visit Diagnoses Not on filedocumented in this encounter Care Teams Director Of Orthopedics Relationship Specialty Start Date End Date Huseyin Dangelo MD PCP - General 09/29/17 07/14/19 documented as of this encounter
--- OUTSIDE RECORDS SUMMARY | 2024-02-24 20:37 | XMS_ITS | Encounter Summary ---
Author Organization Address [address] [place] [address] Care Team Providers Care Cash Poster Name Role Phone Brian Mon MD Primary Care Provider Reason for Visit * Reason Onset Date Comments Results 05/12/2020 Encounter Details Date Type Department Care Team (Late st Contact Info) Description 05/12/2020 Telephone [facility] OBGYN [address] [facility] [address] [address] [facility] [address] [place] [address] [place] [address] [place] [address] Results Social History Tobacco Use Types Packs/Day [...] encounter Miscellaneous Notes * Telephone Encounter - Lisette De Santiago NP - 05/12/2020 1:15 PM CDT Called patient and discussed lab results with her. Her prolactin level is elevated, she states she has has a history of this in past. Discussed that we will treat with Bromocriptine BID for 3 months and then recheck her prolactin level. Discussed side effects of medication with her. She also has a yeast infection, swab did not show BV. Discussed that she does not need to do technician terminal and repeater treatment for Chronic BV for this reason. Her vitamin D is low and her other labs show anemia. Discussed that she needs to call and make an appointment to see her primary physician. She verbalized understanding and states she will. Plan of care reviewed with Dr. Delgado. documented in this encounter Plan of Treatment Not on file documented as of this encounter Visit Diagnoses Diagnosis Hyperprolactinemia- Primary Other and unspecified anterior pituitary hyperfunction documented in this encounter Care Teams Cash Poster Relationship Specialty Start Date End Date Brian Mon MD [address] [place] [phone] PCP - General Internal Medicine 07/15/19 documented as of this encounter
--- OUTSIDE RECORDS SUMMARY | 2024-02-24 20:37 | XMS_ITS | Encounter Summary ---
Author Organization [facility] Address [address] [place] [address] Care Team Providers Care Arc Welder Apprentice Name Role Phone Brian Mon MD Primary Care Provider Encounter Details Date Type Department Care Team (Late st Contact Info) Description 05/12/2020 Orders Only [facility] OBGYN [address] [facility] [address] [address] [facility] [address] [place] [address] [place] [address] [place] [address] Social History Tobacco Use Types [...] on filedocumented in this encounter Care Teams Arc Welder Apprentice Relationship Specialty Start Date End Date Brian Mon MD [address] [place] [address] PCP - General Internal Medicine 07/15/19 documented as of this encounter
--- OUTSIDE RECORDS SUMMARY | 2024-02-24 20:37 | XMS_ITS | Encounter Summary ---
Author Organization [facility] Address [address] [place]: Epic Prelude ADT [place] [address] Care Team Providers Care Special Weapons Unit Officer Name Role Phone Brian Mon MD Primary Care Provider [phone] Encounter Details Date Type Department Care Team (Latest Contact Info) Description 07/23/2019 Travel Social History Tobacco Use Types Packs/Day [...] have Coronavirus / COVID-19? No / Unsure 07/23/2019 2:52 PM CDT documented as of this encounter Plan of Treatment Not on file documented as of this encounter Visit Diagnoses Not on filedocumented in this encounter Care Teams Special Weapons Unit Officer Relationship Specialty Start Date End Date Brian Mon MD [address] [place] [phone] PCP - General Internal Medicine 07/15/19 documented as of this encounter
--- OUTSIDE RECORDS SUMMARY | 2024-02-24 20:37 | XMS_ITS | Encounter Summary ---
Author Organization [facility] Address [address] [place] [address] Care Team Providers Care Sports Statistician Name Role Phone Huseyin Dangelo MD Primary Care Provider [phone] Reason for Visit * Reason Onset Date Comments COVID 06/21/2019 Encounter Details Date Type Department Care Team (Late st Contact Info) Description 06/21/2019 Nurse Triage [facility] Nurse paleontological helper [address] [place] [address] Shima Baird, RN Social History Tobacco Use Types Packs/Day [...] encounter Miscellaneous Notes * Telephone Encounter - Shima Baird RN - 06/21/2019 2:40 PM CDT COVID-19 TRIAGE Do you have a fever of 100.4 or greater? No Do you have a cough, which is new? Yes dry 3days Are you having shortness of breath or difficulty breathing, which is new? Yes Do you have chronic heart, lung, and/or kidney disease, diabetes mellitus, or are you immunosuppressed? Yes Lupus and Asthma Age = 29 y.o. Have you traveled internationally in the last month? No If yes, location? Have you traveled within the [place] in the last month? No If yes, location? Have you been in contact with a suspected or lab-confirmed coronavirus patient? No As of 05/23/2019, patients meet the criteria for COVID-19 testing if they meet ALL the following criteria: Fever (100.4 or greater) AND Respiratory symptoms (new cough, difficulty breathing) AND Have at least one of the followin. History of chronic heart/lung/kidney conditions 2. Immunosuppressed 3. Diabetes Mellitus 4. 50 years of age and older If the patient is a healthcare provider, please have them contact their local employee health person and their leader for further instructions. If there are any questions, refer to your organization's resources. Patient's address on file: [address] [place] [address] Patient's current location:Same as above Does Carito Rausch meet current guidelines for COVID-19 testing? No Recommendation to patient: Self-care at home. Criteria not met for covid 19 testing at this time. Encouraged to practice good hand hygiene and social distancing of 6 ft. Advised to self isolate until fever free x 72 hrs and 7 days past onset of symptoms with a decrease in the severity of symptoms. Encouraged to seek emergency care if symptoms become severe or life threatening. Follow up with PCP for further care as needed. Criteria not met for covid 19 testing at this time. Encouraged to practice good hand hygiene and social distancing of 6 ft. Advised to self isolate until fever free x 72 hrs and 7 days past onset of symptoms with a decrease in the severity of symptoms. Encouraged to seek emergency care if symptoms become severe or life threatening. Follow up with PCP for further care as needed. documented in this encounter Plan of Treatment Not on file documented as of this encounter Visit Diagnoses Not on filedocumented in this encounter Care Teams Sports Statistician Relationship Specialty Start Date End Date Huseyin Dangelo MD PCP - General 09/29/17 07/14/19 documented as of this encounter
--- OUTSIDE RECORDS SUMMARY | 2024-02-24 20:37 | XMS_ITS | Encounter Summary ---
Author Organization [facility] Address [address] [place] [address] Care Team Providers Care Mixer Foam Rubber Name Role Phone Huseyin Dangelo MD Primary Care Provider [phone] Encounter Details Date Type Department Care Team (Late st Contact Info) Description 05/31/[address] [id number] Elise Lugo, RN Social History Tobacco Use Types Packs/Day [...] Miscellaneous Notes * Telephone Encounter - Elise Lugo, RN - 05/31/2019 3:20 PM CDT Patient was contacted via SMS to assess symptoms. He/she reported worsening of symptoms today. Left voicemail to return call. documented in this encounter Plan of Treatment Not on file documented as of this encounter Visit Diagnoses Not on filedocumented in this encounter Care Teams Mixer Foam Rubber Relationship Specialty Start Date End Date Huseyin Dangelo MD PCP - General 09/29/17 07/14/19 documented as of this encounter
--- OUTSIDE RECORDS SUMMARY | 2024-02-24 20:37 | XMS_ITS | Encounter Summary ---
Author Organization [facility] Address [address] [place] [address] Care Team Providers Care Bow Rehairer Name Role Phone Huseyin Dangelo MD Primary Care Provider [phone] Encounter Details Date Type Department Care Team (Late st Contact Info) Description 06/26/2019 Digital Self COVID-1 9 Screening [facility] ABSTRACTION Provider, Abstract NO ADDRESS ON [...] on filedocumented in this encounter Care Teams Bow Rehairer Relationship Specialty Start Date End Date Huseyin Dangelo MD PCP - General 09/29/17 07/14/19 documented as of this encounter
--- OUTSIDE RECORDS SUMMARY | 2024-02-24 20:37 | XMS_ITS | Encounter Summary ---
Author Organization [facility] Address [address] [place] [address] Care Team Providers Care Auto Emissions Technician Name Role Phone Huseyin Dangelo MD Primary Care Provider [phone] Encounter Details Date Type Department Care Team [...] on filedocumented in this encounter Care Teams Auto Emissions Technician Relationship Specialty Start Date End Date Huseyin Dangelo MD PCP - General 09/29/17 07/14/19 documented as of this encounter
--- OUTSIDE RECORDS SUMMARY | 2024-02-24 20:37 | XMS_ITS | Encounter Summary ---
Author Organization [facility] Address [address] [place] [address] Care Team Providers Care Machine Adjuster Helper Name Role Phone Brian Mon MD Primary Care Provider Encounter Details Date Type Department Care Team (Late st Contact Info) Description 05/31/2019 Digital Self COVID-1 9 Screening [facility] ABSTRACTION [...] as of this encounter Care Teams Machine Adjuster Helper Relationship Specialty Start Date End Date Brian Mon MD [address] [place] [phone] PCP - General Internal Medicine 07/15/19 documented as of this encounter
--- OUTSIDE RECORDS SUMMARY | 2024-02-24 20:37 | XMS_ITS | Encounter Summary ---
Author Organization [facility] Address [address] [place]: Epic Prelude ADT [place] [address] Care Team Providers Care Flake Miller Helper Name Role Phone Brian Mon MD Primary Care Provider Encounter Details Date Type Department Care Team (Latest Contact Info) Description 10/23/2019 Travel Social History Tobacco Use Types Packs/Day [...] have Coronavirus / COVID-19? No / Unsure 10/23/2019 2:12 PM CDT documented as of this encounter Plan of Treatment Not on file documented as of this encounter Visit Diagnoses Not on filedocumented in this encounter Additional Health Concerns Infection Onset Date Last Indicated Resolved Time R/O COVID-19 10/23/2019 10/23/2019 10/24/2019 4:18 AM CDT documented as of this encounter Care Teams Flake Miller Helper Relationship Specialty Start Date End Date Brian Mon MD [address] [place] [address] PCP - General Internal Medicine 07/15/19 documented as of this encounter
--- OUTSIDE RECORDS SUMMARY | 2024-02-24 20:37 | XMS_ITS | Encounter Summary ---
Author Organization [facility] Address [address] [place] [address] Care Team Providers Care Printing Equipment Mechanic Apprentice Name Role Phone Huseyin Dangelo MD Primary Care Provider [phone] Reason for Visit * Reason Onset Date Comments covid 06/26/2019 Encounter Details Date Type Department Care Team (Late st Contact Info) Description 06/26/2019 Nurse Triage [facility] Nurse nutrition assistant [address] [place] [address] Tricia Carlton, RN Social History Tobacco Use Types Packs/Day [...] encounter Miscellaneous Notes * Telephone Encounter - Tricia Carlton, RN - 06/26/2019 12:32 PM CDT Pt tested back in early May for COVID. It came back not detected. She wants the antibody test andretest for COVID. Explained we don't order the antibody test here. She is having diarrhea and abdominal pain. No fever. Does not meet criteria for COVID testing at this time. Instructed to call pcp for worsening of symptoms. documented in this encounter Plan of Treatment Not on file documented as of this encounter Visit Diagnoses Not on filedocumented in this encounter Care Teams Printing Equipment Mechanic Apprentice Relationship Specialty Start Date End Date Huseyin Dangelo MD PCP - General 09/29/17 07/14/19 documented as of this encounter
--- OUTSIDE RECORDS SUMMARY | 2024-02-24 20:37 | XMS_ITS | Encounter Summary ---
Author Organization [facility] Address [address] [place] [address] Care Team Providers Care Nib Assembler Name Role Phone Brian Mon MD Primary Care Provider Reason for Visit * Reason Onset Date Comments Medication 05/14/2020 Encounter Details Date Type Department Care Team (Late st Contact Info) Description 05/14/2020 Telephone [facility] OBGYN [address] [facility] [address] [address] [facility] [address] [place] [address] [place] [address] [place] [address] Medication Social History Tobacco Use Types Packs/Day Years [...] Encounter - Lisette De Santiago NP - 05/14/2020 8:10 AM CDT Discussed patient's symptoms with her. Bromocriptine can cause nausea/vomiting and diarrhea. Patient states she is having severe stomach pain and she used an enema and can't have a bowel movement. Patient educated that while Bromocriptine can cause GI symptoms it should not being causing her to be in excruciating pain. I recommended she contact her PCP and go to either a urgent care or ER. Sheverbalized understanding. Discussed plan of care with Dr. Delgado. * Telephone Encounter - Pooja Villagran - 05/14/2020 8:02 AM CDT Patient was crying on the phone said the Bromocriptime is giving her harsh symptoms saying she has terrible stomach pains, puking and cramping. documented in this encounter Plan of Treatment Not on file documented as of this encounter Visit Diagnoses Not on filedocumented in this encounter Care Teams Nib Assembler Relationship Specialty Start Date End Date Brian Mon MD [address] [place] [phone] PCP - General Internal Medicine 07/15/19 documented as of this encounter
--- OUTSIDE RECORDS SUMMARY | 2024-02-24 20:37 | XMS_ITS | Encounter Summary ---
Author Organization [facility] Address [address] [place] [address] Care Team Providers Care Sleeve Tailor Name Role Phone Brian Mon MD Primary Care Provider Reason for Visit * Reason Onset Date Comments Medication Refill 04/27/2020 Encounter Details Date Type Department Care Team (Late st Contact Info) Description 04/27/2020 Refill [facility] OBGYN [address] [place] [address] [address] [facility] [address] [place] [address] [place] [address] [place] [address] Social History Tobacco Use Types [...] Encounter - Lisette De Santiago NP - 04/27/2020 10:49 AM SUCCESS COACH Patient called office and spoke with medical front desk specialist. Needs refill on valtrex for possible outbreak. Comes into the office in 2 weeks. ESS COACH documented in this encounter Plan of Treatment Not on file documented as of this encounter Visit Diagnoses Not on filedocumented in this encounter Care Teams Sleeve Tailor Relationship Specialty Start Date End Date Brian Mon MD [address] [place] [phone] PCP - General Internal Medicine 07/15/19 documented as of this encounter
--- OUTSIDE RECORDS SUMMARY | 2024-02-24 20:37 | XMS_ITS | Encounter Summary ---
Author Organization [facility] Address [address] [place]: Epic Prelude ADT [place]KE[place] [address] Care Team Providers Care Senior Laboratory Technician Name Role Phone Brian Mon MD Primary Care Provider Encounter Details Date Type Department Care Team (Latest Contact Info) Description 07/15/2019 Travel Social History Tobacco Use Types Packs/Day [...] suspected to have Coronavirus / COVID-19? Yes 07/15/2019 2:55 PM CDT documented as of this encounter Plan of Treatment Not on file documented as of this encounter Visit Diagnoses Not on filedocumented in this encounter Additional Health Concerns Infection Onset Date Last Indicated Resolved Time R/O COVID-19 07/15/2019 07/15/2019 07/17/2019 7:43 AM CDT documented as of this encounter Care Teams Senior Laboratory Technician Relationship Specialty Start Date End Date Brian Mon MD [address] [place] [phone] PCP - General Internal Medicine 07/15/19 documented as of this encounter
--- OUTSIDE RECORDS SUMMARY | 2024-02-24 20:37 | XMS_ITS | Encounter Summary ---
Author Organization [facility] Address [address] [place] [address] Care Team Providers Care Medical Detail Representative Name Role Phone Huseyin Dangelo MD Primary Care Provider [phone] Encounter Details Date Type Department Care Team (Late st Contact Info) Description 06/02/2019 Telephone [facility] [id number] [place] [address] [place] [address] [place] [address] Social History Tobacco Use Types Packs/Day Years [...] encounter Miscellaneous Notes * Telephone Encounter - Emperatriz Coombs - 06/02/2019 3:48 PM CDT Patient called back in regards to SMS text. Per patient she was having some symptoms that she then discussed with her doctor and was prescribed some medications. Patient denied any new symptoms and denied needing to speak to a practitioner. documented in this encounter Plan of Treatment Not on file documented as of this encounter Visit Diagnoses Not on filedocumented in this encounter Additional Health Concerns Infection Onset Date Last Indicated Resolved Time R/O COVID-19 06/02/2019 06/02/2019 06/04/2019 11:0 7 AM CDT documented as of this encounter Care Teams Medical Detail Representative Relationship Specialty Start Date End Date Huseyin Dangelo MD PCP - General 09/29/17 07/14/19 documented as of this encounter
--- OUTSIDE RECORDS SUMMARY | 2024-02-24 20:37 | XMS_ITS | Encounter Summary ---
Author Organization [facility] Address [address] [place] [address] Care Team Providers Care Bag Sorter Name Role Phone Brian Mon MD Primary Care Provider Reason for Visit * Reason Onset Date Comments Vomiting 07/16/2019 Encounter Details Date Type Department Care Team (Late st Contact Info) Description 07/16/2019 Nurse Triage [facility] Nurse bail bonding agent [address] [place] [address] Tricia Galindo RN Social History Tobacco Use Types Packs/Day [...] Miscellaneous Notes * Telephone Encounter - Tricia Galindo RN - 07/16/2019 6:35 AM CDT Regarding: Vomiting ----- Message from Tricia Galindo RN sent at 07/16/2019 6:34 AM CDT ----- Patient's address on file: [address] [place] [id number] Patient's current location: Same as above documented in this encounter Plan of Treatment Not on file documented as of this encounter Visit Diagnoses Not on filedocumented in this encounter Additional Health Concerns Infection Onset Date Last Indicated Resolved Time R/O COVID-19 07/15/2019 07/15/2019 07/17/2019 7:43 AM CDT documented as of this encounter Care Teams Bag Sorter Relationship Specialty Start Date End Date Brian Mon MD [address] [place] [address] PCP - General Internal Medicine 07/15/19 documented as of this encounter
--- OUTSIDE RECORDS SUMMARY | 2024-02-24 20:37 | XMS_ITS | Encounter Summary ---
Author Organization [facility] Address [address] [place] [address] Care Team Providers Care Telephone Appointment Clerk Name Role Phone Huseyin Dangelo MD Primary Care Provider Encounter Details Date Type Department Care Team (Late st Contact Info) Description 05/31/[address] [address] Marg[place] [id number] [place] [phone] Social History Tobacco Use Types Packs/Day Years [...] Miscellaneous Notes * Telephone Encounter - Margarita Musa PA - 05/31/2019 11:16 AM CDT COVID SMS Texting Survey Follow Up Patient called to follow up on abnormal COVID daily survey. Left message on voicemail to return call to discuss. Margarita Musa PA-C [facility] [phone] documented in this encounter Plan of Treatment Not on file documented as of this encounter Visit Diagnoses Not on filedocumented in this encounter Care Teams Telephone Appointment Clerk Relationship Specialty Start Date End Date Huseyin Dangelo MD PCP - General 09/29/17 07/14/19 documented as of this encounter
--- OUTSIDE RECORDS SUMMARY | 2024-02-24 20:37 | XMS_ITS | Encounter Summary ---
Author Organization [facility] Address [address] [place] [address] Care Team Providers Care Trial Manager Name Role Phone Huseyin Dangelo MD Primary Care Provider [phone] Encounter Details Date Type Department Care Team (Latest Contact Info) Description 06/02/2019 10:06 AM CDT - 06/02/2019 11:59 PM CDT [facility] [address] [address] Discharge Disposition: Home or Self Care Social [...] tablet Take 200 mg by mouth daily. valACYclovir (VALTREX) 1 gram tablet Take 1,000 mg by mouth 2 times daily. 04/27/2020 documented as of this encounter Miscellaneous Notes * Result Encounter Note - Samantha Hunt FNP - 06/02/2019 10:30 AM CDT Result received in InBasket documented in this encounter Plan of Treatment Not on file documented as of this encounter Procedures Procedure Name Priority Date/Time Associated Diagnosis Comments 2019 NOVEL CORONAVIRUS (COVID-19) PCR DETECTION Routine 06/02/2019 10:07 AM CDT Fever, unspecified fever cause documented in this encounter Results * 2019 NOVEL CORONAVIRUS (COVID-19) PCR DETECTION (06/02/2019 10:07 AM CDT) COVID-19 PCR Not Detected Not Detected 06/04/19 20 11:07 AM CDT [facility] --- [facility] PERFORMING LAB [facility] 06/04/2019 11:07 AM CDT [facility] --- [facility] Upper Respiratory (Oral) Collection / Unknown 06/02/2019 10:07 AM CDT 06/02/2019 12:39 PM CDT Vesna Zhang DO MICROBIOLOGY - GENER AL ORDERABLES [id number] [address] [facility] [address] [address] documented in this encounter Visit Diagnoses Diagnosis Fever, unspecified fever cause documented in this encounter Additional Health Concerns Infection Onset Date Last Indicated Resolved Time R/O COVID-19 06/02/2019 06/02/2019 06/04/2019 11:0 7 AM CDT documented as of this encounter Care Teams Trial Manager Relationship Specialty Start Date End Date Huseyin Dangelo MD PCP - General 09/29/17 07/14/19 documented as of this encounter
--- OUTSIDE RECORDS SUMMARY | 2024-02-24 20:37 | XMS_ITS | Encounter Summary ---
Author Organization [facility] Address [address] [place] [address] Care Team Providers Care Central Service Technician Name Role Phone Brian Mon MD Primary Care Provider Encounter Details Date Type Department Care Team (Latest Contact Info) Description 05/11/2020 4:11 PM CDT - 05/11/2020 11:59 PM CDT Hospital Encounter [facility] [address] [facility] [address] [facility] [address] [place] [address] [place] [address] [place] [address] Discharge Disposition: Home or Self Care Social [...] Take 200 mg by mouth daily. metroNIDAZOLE (METROGEL) 0.75 % vaginal gelIndications:Chronic vaginitis Insert 1 Applicator vaginally daily at bedtime for 5 days. 25 Gram 05/11/2020 05/12/2020 metroNIDAZOLE (METROGEL) 0.75 % vaginal gelIndications:Chronic vaginitis Insert 1 Applicator vaginally twice weekly. For chronic BV treatment: insert 1 applicator vaginally two times a week for a total of 4 months 40 Gram 3 05/11/2020 05/12/2020 documented as of this encounter Plan of Treatment Not on file documented as of this encounter Visit Diagnoses Not on filedocumented in this encounter Care Teams Central Service Technician Relationship Specialty Start Date End Date Brian Mon MD [address] [place] [address] PCP - General Internal Medicine 07/15/19 documented as of this encounter
--- OUTSIDE RECORDS SUMMARY | 2024-02-24 20:37 | XMS_ITS | Encounter Summary ---
Author Organization [facility] Address 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 Appointment scheduled. Patient instructed on self care/self monitoring, hand hygiene, self quarantine, and OTC meds for symptoms. * Telephone Encounter - Willy Warren RN - 05/30/2019 11:20 AM CDT COVID-19 TRIAGE Do you have a fever of 100.4 or greater? Yes Do you have a cough, which is new? Yes Are you having shortness of breath or difficulty breathing, which is new? Yes Do you have chronic heart, lung, and/or kidney disease, diabetes mellitus, or are you immunosuppressed? Yes Age = 29 y.o. Have you traveled internationally in the last month? No If yes, location? Have you traveled within the [place] in the last month? No If yes, location? Have you been in contact with a suspected or lab-confirmed coronavirus patient? Yes, was a patient on a COVID-19 floor at [facility] on April, for over 24 hours awaiting test results. Has developed new/worsening symptoms since then. As of 05/23/2019, patients meet the criteria [...] any questions, refer to your organization's resources. Does Carito Rausch meet current guidelines for COVID-19 testing? Yes Recommendation to patient: Follow up at the testing center. documented in this encounter Plan of Treatment Not on file documented as of this encounter Results * 2019 NOVEL CORONAVIRUS (COVID-19) PCR DETECTION (06/02/2019 10:07 AM CDT) COVID-19 PCR Not Detected Not Detected 06/04/19 20 11:[address] [facility] --- [facility] PERFORMING LAB [facility] 06/04/2019 11:[address] [facility] --- [facility] Upper Respiratory (Oral) Collection / Unknown 06/02/2019 10:07 AM CDT 06/02/2019 12:39 PM CDT Vesna Zhang DO MICROBIOLOGY - GENER AL ORDERABLES [facility] --- [facility]# [id number] [address] [facility] [place] [address] documented in this encounter Visit Diagnoses Diagnosis Fever, unspecified fever cause- Primary documented in this encounter Care Teams Corporate Driver Relationship Specialty Start Date End Date Huseyin Dangelo MD PCP - General 09/29/17 07/14/19 documented as of this encounter
--- OUTSIDE RECORDS SUMMARY | 2024-02-24 20:37 | XMS_ITS | Encounter Summary ---
Author Organization [facility] Address [address] [place]: Epic Prelude ADT [place] [address] Care Team Providers Care Fnps Name Role Phone Brian Mon MD Primary Care Provider Encounter Details Date Type Department Care Team (Latest Contact Info) Description 08/27/2019 Travel Social History Tobacco Use Types Packs/Day [...] on filedocumented in this encounter Care Teams Fnps Relationship Specialty Start Date End Date Brian Mon MD [address] [place] [id number] PCP - General Internal Medicine 07/15/19 documented as of this encounter
--- OUTSIDE RECORDS SUMMARY | 2024-02-24 20:37 | XMS_ITS | Encounter Summary ---
Author Organization [facility] Address [address] [place] [address] Care Team Providers Care [employer] French Teacher Name Role Phone Huseyin Dangelo MD Primary Care Provider [phone] Encounter Details Date Type Department Care Team (Late st Contact Info) Description 06/04/[address] [id number] Marvin Cho RN Social History Tobacco Use Types Packs/Day [...] encounter Miscellaneous Notes * Telephone Encounter - Marvin Cho RN - 06/04/2019 10:16 AM CDT COVID-19 Daily Follow Up Are you feeling worse than yesterday? No Are you having more Shortness of Breath than yesterday? No Is your fever worse than yesterday? No Any new concerns you need to speak to a provider about today? No CDC Recommended guidelines reviewed with patient. documented in this encounter Plan of Treatment Not on file documented as of this encounter Visit Diagnoses Not on filedocumented in this encounter Additional Health Concerns Infection Onset Date Last Indicated Resolved Time R/O COVID-19 06/02/2019 06/02/2019 06/04/2019 11:0 7 AM CDT documented as of this encounter Care Teams [employer] French Teacher Relationship Specialty Start Date End Date Huseyin Dangelo MD PCP - General 09/29/17 07/14/19 documented as of this encounter
--- OUTSIDE RECORDS SUMMARY | 2024-02-24 20:37 | XMS_ITS | Encounter Summary ---
Author Organization [facility] Address [address] [place] [address] Care Team Providers Care Retail Wireless Associate Name Role Phone Brian Mon MD Primary Care Provider Reason for Referral * Laboratory Services (Routine) - Closed Specialty Diagnoses / Procedures Referred By Jud freeman Referred To Contact Diagnoses Chronic vaginitis Procedures VAGINOSIS/V[place] [address] [place] [address] Referral ID Status Reason Start Date Expiration Date Visits Re quested Visits Authorized [id number] Closed 05/11/2020 06/11/2021 1 1 Reason for Visit * Reason Comments Vaginal Problem * Laboratory Services (Routine) - Closed Specialty Diagnoses / Procedures Referred By Jud freeman Referred To Contact Diagnoses Chronic vaginitis Procedures VAGINOSIS/V[place]IS [place] [address] [place] [address] Referral ID Status Reason Start Date Expiration Date Visits Re quested Visits Authorized [id number] Closed 05/11/2020 06/11/2021 1 1 Encounter Details Date Type Department Care Team (Late st Contact Info) Description 05/11/2020 3:15 PM CDT Office Visit [facility] OBGYN [address] [place] [address] [place] [address] [place] [address] Chronic vaginitis (Primary Dx); Weight gain; Fatigue, unspecified type; Low libido Social History Tobacco Use Types Packs/Day Years [...] Sign Reading Time Taken Comments Blood Pressure 128/82 05/11/2020 3:37 PM CDT Pulse - - Temperature - - Respiratory Rate - - Oxygen Saturation - - Inhaled Oxygen Concentration - - Weight 78 kg (172 lb) 05/11/2020 3:37 PM CDT Height 160 cm (5' 3 ) 05/11/2020 3:37 PM CDT Body Mass Index 30.47 05/11/2020 3:37 PM CDT documented in this encounter Progress Notes * Lisette De Santiago, KINGA - 05/11/2020 4:20 PM CDT CC: bacterial vaginosis HPI: Carito MADISON is a 30 y.o. , Patient's last menstrual period was 04/23/2020. presenting to the office with complaints of chronic BV. She states she seems to get an infection every time after she has sex. She states it has been several months since this last infection and that she has just tried to live with it. She is having a thin white discharge and a strong fishy vaginal odor. She gets more than 4 BV infections in a year. She is sexually active with her . Also has several other complaints. States she is fatigued, has struggled with her weight, and has no sex drive. She has had these symptoms every since her miscarriage in April 2019. 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 metroNIDAZOLE (METROGEL) 0.75 % vaginal gel, Insert 1 Applicator vaginally daily at bedtime for5 days., Disp: 25 Gram, Rfl: 0 ??? capsaicin (ZOSTRIX) 0.025 % Cream, Apply to affected area 3 times daily., Disp: , Rfl: ??? omeprazole (PriLOSEC) 20 mg Capsule, Delayed Release(E.C.), Take 20 mg by mouth daily., Disp: ,Rfl: ??? acetaminophen (TYLENOL) 500 mg tablet, Take 500 mg by mouth every 6 hours as needed., Disp: , Rfl: ??? predniSONE (DELTASONE) 10 mg tablet, Take 10 mg by mouth 2 times daily with meals., Disp: , Rfl: ??? ALPRAZolam (XANAX) 0.25 mg tablet, Take 0.25 mg by mouth 3 times daily as needed for Anxiety., Disp: , Rfl: ??? hydroxychloroquine (PLAQUENIL) 200 mg tablet, Take 200 mg by mouth daily., Disp: , Rfl: ??? ondansetron (ZOFRAN) 4 mg Tablet, Take 1 Tablet (4 mg) by mouth every 8 hours as needed for Nausea., Disp: 15 Tablet, Rfl: None Allergies Allergen Reactions ??? Methylprednisolone Syncope ROS Review of Systems Constitutional: Negative for malaise/fatigue. HENT: Negative. Eyes: Negative. Respiratory: Negative. Cardiovascular: Negative. Gastrointestinal: Negative. Musculoskeletal: Negative. Skin: Negative. Neurological: Negative. Endo/Heme/Allergies: Negative. Psychiatric/Behavioral: Negative. : thin white vaginal discharge, fishy vaginal odor. No pelvic pain. No urinary problems. Constitutional: weight gain, fatigue, no sex drive Physical Exam: Vitals: 05/11/20 1535 05/11/20 1537 BP: 128/82 128/82 Weight: 78 kg (172 lb) 78 kg (172 lb) Height: 5' 3 (1.6 m) 5' 3 (1.6 m) Body mass index is 30.47 kg/m??. GEN: NAD, well-developed PULM: Regular breathing rate and effort ABD: nondistended NEURO: A&Ox3 PELVIC: normal external genitalia, vulva, vagina, cervix, uterus and adnexa. Thin white/tejeda vaginal discharge in vaginal canal. Nitrazine of 7.5 ASSESSMENT/PLAN: Encounter Diagnoses Code Name Primary? N76.1 Chronic vaginitis Yes ??? R63.5 Weight gain ??? R53.83 Fatigue, unspecified type ??? R68.82 Low libido Chronic Vaginitis - discussed chronic BV with patient. She states she has definitely had more than 4 infections this past year - patient to do metrogel the week, then switch to chronic BV treatment next week. 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 Denies breast discharge Due for Well Woman Exam documented in this encounter Plan of Treatment Not on file documented as of this encounter Procedures Procedure Name Priority Date/Time Associated Diagnosis Comments VAGINOSIS/VAGINITIS PANEL PLUS Routine 05/11/2020 4:23 PM CDT Chronic vaginitis documented in this encounter Results * DHEA (05/11/2020 4:24 PM CDT) DHEA <0.5 <13 ng/mL 05/17/2020 3:00 PM CDT [facility] [employer] [facility] Comment: ADDITIONAL INFORMATION This test was developed and its performance characteristics determined by [facility] in a manner consistent with CLIA requirements. This test has not been cleared or approved by the U.S. Food and Drug Administration. Test Performed by: [facility] [address] [place] [address] Exhibition Carver: Dima Travis M.D. Ph.D.; CLIA# [id number] Blood Venipuncture / Unknown 05/11/2020 4:24 PM CDT 05/11/2020 4:24 PM CDT Lisette De Santiago NP CHEMISTRY ORDERABL ES [facility] * TESTOSTERONE FREE AND TOTAL (05/11/2020 4:24 PM CDT) ALBUMIN 4.5 3.5 - 5.2 g/dL 05/12/2020 3:02 AM CDT [facility] [employer] [facility] SEX HORMONE BINDING GLOBULIN 63.8 24.6 - 122.0 nmol/L 05/12/2020 3:02 AM CDT [facility] [employer] TESTOSTERONE <12.0 8.0 - 48.0 ng/dL 05/12/2020 3:02 AM CDT [facility] [employer] [facility] FREE TESTOSTERONE, CALCULATED 05/12/2020 3:02 AM CDT [facility] Comment:Unable to calculate because one or more components used in the equation are outside the reportable range. Blood Venipuncture / Unknown 05/11/2020 4:24 PM CDT 05/11/2020 4:24 PM CDT Lisette De Santiago NP CHEMISTRY ORDERABL ES [facility] [employer] [facility] CLIA# [id number] [address] [place] [address] * (ABNORMAL) PROLACTIN (05/11/2020 4:24 PM CDT) PROLACTIN 25.6(H) 3.0 - 18.6 ng/mL 05/11/2020 6:36 PM CDT [employer] [facility] Blood Venipuncture / Unknown 05/11/2020 4:24 PM CDT 05/11/2020 4:24 PM CDT Lisette Brink Jonnathan DONATO CHEMISTRY ORDERABL ES [facility] CLIA# [id number] [place] [address] * (ABNORMAL) CBC WITH DIFFERENTIAL (05/11/2020 4:24 PM CDT) WBC 11.2(H) 4.5 - 10.5 K/uL 05/11/2020 5:44 PM CDT [facility] RBC 4.20 3.90 - 4.90 M/uL 05/11/2020 5:44 PM CDT [facility] HEMOGLOBIN 13.2 11.8 - 14.8 g/dL 05/11/2020 5:44 PM CDT [facility] HEMATOCRIT 38.8 35.5 - 44.0 % 05/11/2020 5:44 PM CDT [facility] MCV 92.4 82.0 - 99.0 fL 05/11/2020 5:44 PM CDT [facility] MCH 31.6 27.8 - 34.5 pg 05/11/2020 5:44 PM CDT [facility] MCHC 34.1 32.5 - 35.5 g/dL 05/11/2020 5:44 PM CDT [facility] RDW 13.7 11.5 - 14.5 % 05/11/2020 5:44 PM CDT [facility] PLATELETS 310 160 - 420 K/uL 05/11/2020 5:44 PM CDT [facility] MPV 8.7 8.7 - 12.7 fL 05/11/2020 5:44 PM CDT [facility] NEUTROPHILS 82(H) 45 - 70 % 05/11/2020 5:44 PM CDT [facility] LYMPHOCYTES 12(L) 16 - 45 % 05/11/2020 5:44 PM CDT [facility] MONOCYTES 5 3 - 13 % 05/11/2020 5:44 PM CDT [facility] EOSINOPHILS 1 0 - 7 % 05/11/2020 5:44 PM CDT [facility] BASOPHILS 1 0 - 2 % 05/11/2020 5:44 PM CDT [facility] NEUTROPHIL ABSOLUTE 9.10(H) 1.90 - 7.00 K/uL 05/11/2020 5:44 PM CDT [facility] LYMPHOCYTE ABSOLUTE 1.40 0.70 - 4.50 K/uL 05/11/2020 5:44 PM CDT [facility] MONOCYTE ABSOLUTE 0.50 0.10 - 1.30 K/uL 05/11/2020 5:44 PM CDT [facility] EOSINOPHIL ABSOLUTE 0.10 0.00 - 0.70 K/uL 05/11/2020 5:44 PM CDT [facility] BASOPHILS ABSOLUTE 0.10 0.00 - 0.20 K/uL 05/11/2020 5:44 PM CDT [facility] Blood Venipuncture / Unknown 05/11/2020 4:24 PM CDT 05/11/2020 4:24 PM CDT Lisette De Santiago NP HEMATOLOGY ORDERAB LES [facility] CLIA# [id number] [address] [place] [address] * RETICULOCYTES (05/11/2020 4:24 PM CDT) RETICULOCYTES 1.6 0.4 - 2.0 % 05/11/2020 5:44 PM CDT [facility] IMMATURE RETIC FRACTION 0.4 % 05/11/2020 5:44 PM CDT [facility] RETICULOCYTE, ABSOLUTE 0.0689 0.0250 - 0.1480 10e6/uL 05/11/2020 5:44 PM CDT [facility] Blood Venipuncture / Unknown 05/11/2020 4:24 PM CDT 05/11/2020 4:24 PM CDT Lisette De Santiago NP HEMATOLOGY ORDERAB LES [facility]# [id number] [place] [address] * FOLATE, SERUM (05/11/2020 4:24 PM CDT) FOLATE, SERUM 17.8 4.6 - 34.8 ng/mL 05/11/2020 6:37 PM CDT [facility] Blood Venipuncture / Unknown 05/11/2020 4:24 PM CDT 05/11/2020 4:24 PM CDT Lisette De Santiago NP CHEMISTRY ORDERABL ES Performing Organization Address City/[facility]/ZIP Co de Phone Number [facility] CLIA# [id number] [place] [address] * VITAMIN B12 LEVEL (05/11/2020 4:24 PM CDT) VITAMIN B12 658 232-1,245 pg/mL 05/11/2020 6:36 PM CDT [facility] Blood Venipuncture / Unknown 05/11/2020 4:24 PM CDT 05/11/2020 4:24 PM CDT Lisette De Santiago NP CHEMISTRY ORDERABL ES [facility] CLIA# [id number] [place] [address] * FERRITIN (05/11/2020 4:24 PM CDT) FERRITIN 17.8 13.0 - 150.0 ng/mL 05/11/2020 6:36 PM CDT [facility] Blood Venipuncture / Unknown 05/11/2020 4:24 PM CDT 05/11/2020 4:24 PM CDT Lisette De Santiago NP CHEMISTRY ORDERABL ES Performing Organization Address City/[facility] [[email or web address]] Co de Phone Number [facility]# [id number] [place] [address] * (ABNORMAL) IRON, TIBC, AND PERCENT SATURATION (05/11/2020 4:24 PM CDT) Pathologist [facility] IRON 54 37 - 145 ug/dL 05/11/2020 6:10 PM CDT [facility] TIBC 336 265 - 497 ug/dL 05/11/2020 6:10 PM CDT [facility] IRON % SATURATION 16(L) 20 - 55 % 05/11/2020 6:10 PM CDT [facility] Blood Venipuncture / Unknown 05/11/2020 4:24 PM CDT 05/11/2020 4:24 PM CDT Lisette De Santiago NP CHEMISTRY ORDERABL ES Performing Organization Address City/[facility] [[email or web address]] Co de Phone Number [facility]# [id number] [place] [address] * (ABNORMAL) VITAMIN D 25 HYDROXY (05/11/2020 4:24 PM CDT) VITAMIN D TOTAL (25OH) 21(L) 30 - 100 ng/mL 05/11/2020 6:36 PM CDT [facility] Blood Venipuncture / Unknown 05/11/2020 4:24 PM CDT 05/11/2020 4:24 PM CDT Narrative [facility] - 05/11/2020 6:36 PM CDT Interpretive Data Chart: Deficient: ? 0 - 20 ng/mL Insufficient: ?21 - 29 ng/mL Sufficient: ?30 - 100 ng/mL Increased Risk of Hypercalciuria: ??>100 ng/ml Toxic: ? >150 ng/ml Lisette De Santiago NP CHEMISTRY ORDERABL ES Performing Organization Address [facility] de Phone Number [facility]# [id number] [place] [address] * TSH (05/11/2020 4:24 PM CDT) [facility] TSH 1.36 0.27 - 4.20 uIU/mL 05/11/2020 6:19 PM CDT [facility] Blood Venipuncture / Unknown 05/11/2020 4:24 PM CDT 05/11/2020 4:24 PM CDT Lisette De Santiago NP CHEMISTRY ORDERABL ES Performing Organization Address [facility] de Phone Number [facility]# [id number] [place] [address] * (ABNORMAL) VAGINOSIS/VAGINITIS PANEL PLUS (05/11/2020 4:23 PM CDT) [facility] CHLAMYDIA DNA AMPLIFICATION NOT DETECTED Not Detected 05/12/2020 11:30 AM CDT [facility] [employer] [facility] GC DNA AMPLIFICATION NOT DETECTED Not Detected 05/12/2020 11:30 AM CDT [facility] - [facility] TRICHOMONAS VAGINALIS BY PCR Not Detected Not Detected 05/12/2020 11:30 AM CDT [facility] - [facility] KINSG SPECIES, NOT GLABRATA BY PCR Detected(A) Not Detected 05/12/2020 11:30 AM CDT [facility] - [facility] KINGS GLABRATA BY PCR NOT DETECTED Not Detected 05/12/2020 11:30 AM CDT [facility] - [facility] BACTERIAL VAGINOSIS BY PCR Not Detected Not Detected 05/12/2020 11:30 AM CDT [facility] Genital SPECIMEN FROM VAGINA / Unknown Collection / Unknown 05/11/2020 4:23 PM CDT 05/11/2020 8:03 PM CDT Lisette De Santiago NP MICROBIOLOGY - GEN ERAL ORDERABLES [facility] CLME# [id number] [address] [place] [address] documented in this encounter Visit Diagnoses Diagnosis Chronic vaginitis- Primary Vaginitis and vulvovaginitis, unspecified Weight gain Abnormal weight gain Fatigue, unspecified type Low libido documented in this encounter Care Teams Retail Wireless Associate Relationship Specialty Start Date End Date Brian Mon MD [address] [place] [id number] PCP - General Internal Medicine 07/15/19 documented as of this encounter
--- OUTSIDE RECORDS SUMMARY | 2024-02-24 20:37 | XMS_ITS | Encounter Summary ---
Author Organization [facility] Address [address] [place] [address] Care Team Providers Care Laborer [facility] Name Role Phone Brian Mon MD Primary Care Provider Reason for Visit * Reason Comments Abdominal Pain Pt complains of lowe r abd pain that started about a week ago. She states it would be way to early to tell, but I feel like I . She reports being seen here recently for the same complaint and she states they said I had a UTI. Encounter Details Date Type Department Care Team (Late st Contact Info) Description 10/25/2019 9:07 AM CDT - 10/25/2019 1:22 PM CDT Emergency [facility] Emergency Department [address] [place] [id number] Bon Braga MD [address] [facility] [address] [place], [place] [id number] Suprapubic abdominal pain (Primary Dx) Discharge Disposition: Home or Self [...] Sign Reading Time Taken Comments Blood Pressure 124/81 10/25/2019 12:50 PM CDT Pulse 83 10/25/2019 12:50 PM CDT Temperature 36.7 ??C (98 ??F) 10/25/2019 8:50 AM CDT Respiratory Rate 18 10/25/2019 12:50 PM CDT Oxygen Saturation 100% 10/25/2019 12:50 PM CDT Inhaled Oxygen Concentration - - Weight 74.8 kg (165 lb) 10/25/2019 8:50 AM CDT Height 160 cm (5' 3 ) 10/25/2019 8:50 AM CDT Body Mass Index 29.23 10/25/2019 8:50 AM CDT documented in this encounter Discharge Instructions * Discharge Instructions* Austni Peterson MD - 10/25/2019 1:06 PM CDT Take tylenol as needed for abdominal pain. F/u HIDA scan on 10/27 with your Data Operations Manager. Take Diflucan 200mg once after a week if urinary symptoms do not resolve. documented in this encounter Medications at Time of Discharge Medication Sig Dispensed Refills Start Date End Date omeprazole (PriLOSEC) 20 mg Capsule, Delayed Release(E.C.) Take 20 mg by mouth daily. hydroxychloroquine (PLAQUENIL) 200 mg tablet Take 200 mg by mouth daily. valACYclovir (VALTREX) 1 gram tablet Take 1,000 mg by mouth 2 times daily. 04/27/2020 documented as of this encounter ED Notes * Jackson Ramos RN - 10/25/2019 12:03 PM CDT Patient at US at this time. * Jackson Ramos RN - 10/25/2019 11:07 AM CDT Katharina MAST at bedside at this time to place Saucedo Catheter * Jackson Ramos RN - 10/25/2019 10:[address] Braga at bedside at this time. * Jackson Ramos RN - 10/25/2019 10:12 AM CDT Patient remains in her room resting in bed. Patient self repositioned and/or staff assisted with repositioning. Call light within patient's reach. Patient denies any new complaints at this time. Respirations are even and non labored. Patient is on continuous pulse oximetry and intermittent blood pressures. * Jackson Ramos RN - 10/25/2019 9:13 AM CDT Patient is a 29-year-old female that presents to [facility] emergency department via personal vehicle with complaints of lower abdominal pain that is radiating to her lower back. Patient states that this is been going on for a couple days now and she came into the ER this morning because she woke up with some vomiting and severe pain. Patient does state that she has had diarrhea but that is normal for her bowel movements. She also complains of an increased urinary frequency as well as foul-smelling odor. Patient denies any vaginal discharge, denies any vaginal bleeding. Patient has history of lupus. Patient also states that she was here just a couple days ago with an upper abdominal pain and she ended up being sent home with a yeast infection that she was given Diflucan for. Patient states she took this yesterday and had some eye swelling and itching which she called EMS for last night. Patient also states that she believes she might be because she is having breast pain that is similar to when she was in the past. However her urine test 2 days ago were negative. Patient is A+Ox4, Skin is pink, warm, and dry. Patient RR is even, non labored, and is speaking in full complete sentences. Placed on continuous pulse oximetry and intermittent blood pressures. * Bon Braga MD - 10/25/2019 8:49 AM CDT HISTORY OF PRESENT ILLNESS Carito Rausch, a 29 y.o. female with past medical history of SLE chronic abdominal pain presentsto the ED with a Chief Complaint of suprapubic pain radiating to both flanks towards her back. Pain started yesterday and was severe enough to wake her up from sleep. Suprapubic pain is associated with urinary frequency and foul-smelling urine which started 5 days ago for which she presented 2days ago on 10/22/2025 and was prescribed Diflucan for a yeast infection on discharge. She reports having chronic lower quadrant epigastric pain associated with alternating diarrhea constipation and is being followed by GI. Patient has HIDA scan scheduled on 10/28/2019 for evaluation of gallstone disease. She is not bothered by right upper quadrant pain today and reports that it is mild and manageable. She has been on prednisone for the last 2 years and reports a weight gain of 30 pounds in the last 6months and is scheduled to follow-up with treating plant operator in the next week. She denies having any fever, vaginal discharge, dysuria, intermenstrual bleeding. Last menstrual period was 2 weeks ago. Subjective History provided by: The patient cold roller used: No Arrived by: Private vehicle Arrived from: Home Abdominal Pain Pain location: Suprapubic Pain quality: stabbing Pain radiates to: L flank, R flank and back Pain severity: 6/10 Onset quality: Sudden Duration: 1 day Timing: Constant Progression: Unchanged Chronicity: New Context: awakening from sleep Associated symptoms: chills, constipation, diarrhea and vomiting Associated symptoms: no anorexia, no chest pain, no cough, no dysuria, no fatigue, no fever, no hematemesis, no hematuria, no melena and no shortness of breath REVIEW OF SYSTEMS Review of Systems Constitutional: Positive for chills. Negative for appetite change, diaphoresis, fatigue and fever. HENT: Negative for congestion, ear discharge, hearing loss and sneezing. Eyes: Negative for discharge. Respiratory: Negative for cough, choking, chest tightness, shortness of breath and stridor. Cardiovascular: Negative for chest pain, palpitations and leg swelling. Gastrointestinal: Positive for abdominal pain, constipation, diarrhea and vomiting. Negative for abdominal distention, anorexia, blood in stool, hematemesis and melena. Endocrine: Positive for polyuria. Genitourinary: Positive for flank pain, frequency and urgency. Negative for difficulty urinating, dyspareunia, dysuria, genital sores and hematuria. Musculoskeletal: Negative for arthralgias. Neurological: Positive for headaches. Negative for dizziness, seizures, facial asymmetry, speech difficulty and light-headedness. Psychiatric/Behavioral: Negative for agitation, behavioral problems and confusion. PAST MEDICAL HISTORY REVIEWED MEDICAL: Patient has a past medical history of Anxiety, Connective tissue disease, Depression, Fibromyalgia,Herpes, HTN (hypertension), and Lupus. She also has no past medical history of Arthritis, Asthma, Atrial fibrillation, Breast cancer, CAD (coronary artery disease), CHF (congestive heart failure), Chronic hepatic failure, Clostridium difficile enterocolitis, COPD (chronic obstructive pulmonary disease), CRI (chronic renal insufficiency), CVD (cerebrovascular disease), Dementia, Diabetes mellitus,GERD (gastroesophageal reflux disease), Headache, Hemorrhagic diathesis, Human immunodeficiency virus (HIV) disease, Hyperlipidemia, Hyperthyroidism, Hypothyroidism, IBS (irritable bowel syndrome), Kidney calculus, Malignant neoplasm of lung, Malignant tumor of colon, MRSA (methicillin resistant Staphylococcus aureus), Osteoporosis, Pancreatitis, Psychosis, PUD (peptic ulcer disease), PVD (peripheral vascular disease), Seizure disorder, Substance abuse, Thromboembolism, Ventricular arrhythmia, or VRE (vancomycin-resistant Enterococci). SURGICAL: Patient has a past surgical history that includes appendectomy and median nerve repair. FAMILY: Patient's family history is not on file. SOCIAL: reports that she has been smoking cigarettes. She has been smoking about 0.25 packs per day. She has never used smokeless tobacco. She reports current alcohol use. She reports previous drug use. Drugs: Marijuana and Cocaine. She reports being sexually active. No history on file. Social History Other Topics Concern ??? Not on file PROBLEM LIST: Patient has Myalgia, unspecified site; Arthralgia; Weakness; and Lupus on their problem list. ALLERGIES Methylprednisolone HOME MEDICATIONS Discharge Medication List as of 10/25/2019 1:08 PM CONTINUE these medications which have NOT CHANGED Details capsaicin (ZOSTRIX) 0.025 % Cream Apply to affected area 3 times daily. omeprazole (PriLOSEC) 20 mg Capsule, Delayed Release(E.C.) Take 20 mg by mouth daily. leflunomide (ARAVA) 20 mg Tablet Take 20 mg by mouth. acetaminophen (TYLENOL) 500 mg tablet Take 500 mg by mouth every 6 hours as needed. Lidocaine (LIDOCAINE PAIN RELIEF) 4 % Adhesive Patch, Medicated Apply one patch to painful area every 24 hours., Disp-5 Patch, R-0 mycophenolate mofetil (CELLCEPT) 250 mg Capsule Take 250 mg by mouth 2 times daily. predniSONE (DELTASONE) 10 mg tablet Take 10 mg by mouth 2 times daily with meals. ALPRAZolam (XANAX) 0.25 mg tablet Take 0.25 mg by mouth 3 times daily as needed for Anxiety. hydroxychloroquine (PLAQUENIL) 200 mg tablet Take 200 mg by mouth daily. ondansetron (ZOFRAN) 4 mg Tablet Take 1 Tablet (4 mg) by mouth every 8 hours as needed for Nausea.,Disp-15 Tablet, R-None valACYclovir (VALTREX) 1 gram tablet Take 1,000 mg by mouth 2 times daily. STOP taking these medications fluconazole (DIFLUCAN) 200 mg tablet Comments: Reason for Stopping: oxyCODONE-acetaminophen (PERCOCET) 5-325 mg tablet Comments: Reason for Stopping: ondansetron (ZOFRAN ODT) 4 mg Tablet, Rapid Dissolve Comments: Reason for Stopping: cyclobenzaprine (FLEXERIL) 10 mg tablet Comments: Reason for Stopping: ketorolac tromethamine (TORADOL) 10 mg tablet Comments: Reason for Stopping: HYDROcodone-acetaminophen (NORCO) 5-325 mg tablet Comments: Reason for Stopping: Objective PHYSICAL EXAM INITIAL VS BP: 125/87 (10/25/1948), Heart Rate: 86 bpm (10/25/1948), Resp: 16 (10/25/1948), Pulse: 86(10/25/1948), Temp: 98 ??F (36.7 ??C) (10/25/1948), Temp src: Oral (10/25/1948), SpO2: 100% (10/25/1948), Height: 5' 3 (160 cm) (08/29/20 0850), Weight: 74.8 kg (165 lb) (10/25/19 0850), BMI (Calculated): 29.24 (10/25/1948) Patient's last menstrual period was 10/09/2019. Physical Exam Constitutional: General: She is not in acute distress. Appearance: She is well-developed. She is not ill-appearing, toxic-appearing or diaphoretic. HENT: Mouth/Throat: Mouth: Mucous membranes are moist. Cardiovascular: Rate and Rhythm: Normal rate and regular rhythm. Heart sounds: No murmur. Pulmonary: Effort: Pulmonary effort is normal. Breath sounds: Normal breath sounds. Abdominal: General: Abdomen is protuberant. Bowel sounds are normal. There is no distension. Palpations: Abdomen is soft. Tenderness: There is generalized abdominal tenderness. Hernia: No hernia is present. Skin: General: Skin is warm. Neurological: General: No focal deficit present. Mental Status: She is alert and oriented to person, place, and time. Psychiatric: Mood and Affect: Mood normal. Behavior: Behavior normal. DIAGNOSTICS LAB: CBC WITH DIFFERENTIAL - Abnormal Result Value WBC 8.3 RBC 4.06 HEMOGLOBIN 11.0 (*) HEMATOCRIT 36.1 MCV 88.9 MCH 27.1 (*) MCHC 30.5 (*) RDW 14.9 (*) RDW-STDEV 48.4 PLATELETS 301 MPV 9.7 NEUTROPHILS 84 LYMPHOCYTES 9 MONOCYTES 5 EOSINOPHILS 1 BASOPHILS 0 IMMATURE GRANULOCYTES 0 NEUTROPHIL ABSOLUTE 6.97 LYMPHOCYTE ABSOLUTE 0.77 MONOCYTE ABSOLUTE 0.44 EOSINOPHIL ABSOLUTE 0.06 BASOPHILS ABSOLUTE 0.03 IMMATURE GRANULOCYTES ABSOLUTE 0.02 URINALYSIS WITH REFLEX CULTURE - Abnormal COLOR UA Yellow CLARITY UA Slightly Cloudy (*) SPECIFIC GRAVITY UA 1.024 PH UA 6.0 LEUKOCYTE ESTERASE UA Negative NITRITE UA Negative PROTEIN UA 2+ (*) GLUCOSE UA Negative KETONES UA Negative UROBILINOGEN UA Normal BILIRUBIN UA Negative BLOOD UA Negative WBC UA 0-2 RBC UA 0-2 BACTERIA UA Negative EPITHELIAL CELLS, URINE 0-5 COMPREHENSIVE METABOLIC PANEL - Abnormal SODIUM 141 POTASSIUM 3.8 CHLORIDE 101 CO2 28 CALCIUM 9.6 BUN 15 CREATININE 0.79 GLUCOSE 110 (*) TOTAL PROTEIN 7.4 ALBUMIN 4.4 BILIRUBIN TOTAL 0.5 ALKALINE PHOSPHATASE 53 AST 14 ALT 11 GFR >60 GFR, >60 ANION GAP 12 C-REACTIVE PROTEIN - Abnormal CRP 11.7 (*) LIPASE - Normal LIPASE 52 HCG QUALITATIVE, URINE - Normal HCG QUAL URINE Negative COLOR UA Yellow CLARITY UA Clear POC HCG QL /W REFLEX TO HCG QN POC HCG QL /W REFLEX TO HCG QN POC HCG QL, BLOOD Negative FRAMING AND HANGING NAME ERNIE LOVE RADIOLOGY: US PELVIS + TRANSVAG NON OB Preliminary Result IMPRESSION: No evidence of ovarian torsion. Dictated by Ernie Sweeney MD DICTATION LOCATION: Location [address] [place] [address] US PELVIS + TRANSVAG NON OB PROCEDURES Procedures MEDICAL DECISION MAKING AND PLAN OF CARE MDM Summary Statement: 29-year-old female with possible history of SLE and chronic abdominal pain being followed by GI complains of sudden onset suprapubic pain Radiating to both her flanks and back x1 day associated with urinary frequency for the last 5 days. Last menstrual period was 2 weeks ago and ruled out by POC blood test and urinebeta-hCG. UA is normal. Pelvic US awaited. Medications Administered During the ED Stay from 10/25/2019 0849 to 10/25/2019 1411 Date/Time Order Dose Route Action 10/25/2019 1033 ketorolac (TORADOL) injection 30 mg 30 mg IV Given Discharge Medication List as of 10/25/2019 1:08 PM CONTINUE these medications which have NOT CHANGED Details capsaicin (ZOSTRIX) 0.025 % Cream Apply to affected area 3 times daily. omeprazole (PriLOSEC) 20 mg Capsule, Delayed Release(E.C.) Take 20 mg by mouth daily. leflunomide (ARAVA) 20 mg Tablet Take 20 mg by mouth. acetaminophen (TYLENOL) 500 mg tablet Take 500 mg by mouth every 6 hours as needed. Lidocaine (LIDOCAINE PAIN RELIEF) 4 % Adhesive Patch, Medicated Apply one patch to painful area every 24 hours., Disp-5 Patch, R-0 mycophenolate mofetil (CELLCEPT) 250 mg Capsule Take 250 mg by mouth 2 times daily. predniSONE (DELTASONE) 10 mg tablet Take 10 mg by mouth 2 times daily with meals. ALPRAZolam (XANAX) 0.25 mg tablet Take 0.25 mg by mouth 3 times daily as needed for Anxiety. hydroxychloroquine (PLAQUENIL) 200 mg tablet Take 200 mg by mouth daily. ondansetron (ZOFRAN) 4 mg Tablet Take 1 Tablet (4 mg) by mouth every 8 hours as needed for Nausea.,Disp-15 Tablet, R-None valACYclovir (VALTREX) 1 gram tablet Take 1,000 mg by mouth 2 times daily. STOP taking these medications fluconazole (DIFLUCAN) 200 mg tablet Comments: Reason for Stopping: oxyCODONE-acetaminophen (PERCOCET) 5-325 mg tablet Comments: Reason for Stopping: ondansetron (ZOFRAN ODT) 4 mg Tablet, Rapid Dissolve Comments: Reason for Stopping: cyclobenzaprine (FLEXERIL) 10 mg tablet Comments: Reason for Stopping: ketorolac tromethamine (TORADOL) 10 mg tablet Comments: Reason for Stopping: HYDROcodone-acetaminophen (NORCO) 5-325 mg tablet Comments: Reason for Stopping: LAST VS BP: 124/81 (10/25/19 1250), Heart Rate: 86 bpm (10/25/19 0850), Resp: 18 (10/25/19 1250), Pulse: 83(10/25/19 1250), Temp: 98 ??F (36.7 ??C) (10/25/19 0850), Temp src: Oral (10/25/19 0850), SpO2: 100% (10/25/19 1250) CLINICAL IMPRESSION Final diagnoses: [R10.2] Suprapubic abdominal pain (Primary) DISPOSITION, EDUCATION AND MEDICATION RECONCILIATION Medications reconciled. See after visit summary for patient education on discharged patients. ED Disposition ED Disposition Condition User Date/Time Comment Discharge Stable Austin Peterson MD Sat Oct 25, 2019 1:03 PM ATTESTATION STATEMENTS I have seen and examined the patient with the resident and agree with the note and the findings. Patient has a benign abdominal exam and unremarkable laboratory studies. Pelvic ultrasound did not show any acute process. documented in this encounter Plan of Treatment Not on file documented as of this encounter Procedures Procedure Name Priority Date/Time Associated Diagnosis Comments US PELVIS + TRANSVAG NON OB Stat 10/25/2019 12:24 PM CDT POC HCG QL /W REFLEX TO HCG QN Stat 10/25/2019 9:54 AM CDT URINALYSIS WITH REFLEX CULTURE Stat 10/25/2019 9:46 AM CDT HCG QUALITATIVE, URINE Stat 0 9:46 AM CDT CBC WITH DIFFERENTIAL Stat 10/25/2019 9:40 AM CDT C-REACTIVE PROTEIN Stat 10/25/2019 9: 40 AM CDT LIPASE Stat 10/25/2019 9:40 AM CDT COMPREHENSIVE METABOLIC PANEL Stat 10/25/2019 9:40 AM CDT documented in this encounter Results * US PELVIS + TRANSVAG NON OB (10/25/2019 12:24 PM CDT) Anatomical Region Laterality Modality Pelvis Ultrasound 10/25/2019 12:2 5 PM CDT Impressions 10/25/2019 1:23 PM CDT IMPRESSION: No evidence of ovarian torsion. Dictated by Ernie Sweeney MD DICTATION LOCATION: Location [address] [place] [address] 10/25/2019 1:23 PM CDT EXAMINATION: 1. TRANSABDOMINAL PELVIC SONOGRAM 2. TRANSVAGINAL PELVIC SONOGRAM NON OB DATE: 10/25/2019 12:24 PM HISTORY: Pelvic pain. FINDINGS: No prior study is available for comparison at the time of this dictation. Transabdominal: Uterus: 8.2 x 3.4 x 5.2 cm Transvaginal: Right ovary: 1.8 x 2.2 x 1.9 cm Left ovary: 2.3 x 3.0 x 1.1 cm The ovaries appear normal for the patient's age. Multiple follicles are seen in both ovaries. There is a 1.3 cm cyst in the left ovary. There is no evidence of ovarian torsion. The uterus appears normal. The endometrial bilayer thickness measures 2 mm, which is within normal limits. No free fluid is present in the cul-de-sac. Procedure Note Ernie Sweeney MD - 10/25/2019 EXAMINATION: 1. TRANSABDOMINAL PELVIC SONOGRAM 2. TRANSVAGINAL PELVIC SONOGRAM NON OB DATE: 10/25/2019 12:24 PM HISTORY: Pelvic pain. FINDINGS: No prior study is available for comparison at the time of this dictation. Transabdominal: Uterus: 8.2 x 3.4 x 5.2 cm Transvaginal: Right ovary: 1.8 x 2.2 x 1.9 cm Left ovary: 2.3 x 3.0 x 1.1 cm The ovaries appear normal for the patient's age. Multiple follicles are seen in both ovaries. There is a 1.3 cm cyst in the left ovary. There is no evidence of ovarian torsion. The uterus appears normal. The endometrial bilayer thickness measures 2 mm, which is within normal limits. No free fluid is present in the cul-de-sac. IMPRESSION: No evidence of ovarian torsion. Dictated by Ernie Sweeney MD DICTATION LOCATION: Location 2 - [facility] Bon Braga MD ORDERABLES * POC HCG QL /W REFLEX TO HCG QN (10/25/2019 9:54 AM CDT) HCG QUAL, BLOOD POC Negative 10/25/2019 9:54 AM CDT [facility] [employer] [facility] Comment: Quantitative HCG Result Negative ?<5.0 IU/L Indeterminate ?5.0 - 25.0 IU/L Positive ?>25.0 IU/L ? [employer]AMING AND HANGING NAME POC ERNIE LOVE 10/25/2019 9:54 AM CDT [facility] [employer] [facility] Blood 10/25/2019 9:54 AM CDT 10/25/2019 10:21 AM CDT Narrative [facility] [employer] [facility] - 10/25/2019 9:54 AM CDT <5.0 mIU/mL Negative 5.0 - 25.0 mIU/mL Indeterminate >25.0 mIU/mL Positive Bon Braga MD POINT OF CARE TESTIN G [facility] [employer] [facility] CLIA# [id number] [address] [place] [address] * HCG QUALITATIVE, URINE (10/25/2019 9:46 AM CDT) HCG QUAL URINE Negative Negative 10/25/2019 10:07 AM CDT [employer] [facility] COLOR UA Yellow Pale to Dark Yellow 10/25/2019 10:07 AM CDT [facility] CLARITY UA Clear Clear 10/25/2019 10:07 AM T [facility] Urine URINE SPECIMEN OBTAINED BY CLEAN CATCH PROCEDURE / Unknown Collection / Unknown 10/25/2019 9:46 AM CDT 10/25/2019 9:56 AM CDT Bon Braga MD URINE ORDERABLES [facility] [employer] [facility] CLIA# [id number] [address] [place] [address] * (ABNORMAL) URINALYSIS WITH REFLEX CULTURE (10/25/2019 9:46 AM CDT) COLOR UA Yellow Pale to Dark Yellow 10/25/2019 10:09 AM T [employer] [facility] CLARITY UA Slightly Cloudy(A) Clear 10/25/2019 10:09 AM T [employer] [facility] SPECIFIC GRAVITY UA 1.024 1.003 - 1.035 10/25/2019 10:09 AM T [employer] [facility] PH UA 6.0 5.0 - 8.0 10/25/2019 10:09 AM T [employer] [facility] LEUKOCYTE ESTERASE UA Negative Negative 10/25/2019 10:09 AM T [employer] [facility] NITRITE UA Negative Negative 10/25/2019 10:09 AM T [employer] [facility] PROTEIN UA 2+(A) Negative 10/25/2019 10:09 AM T [employer] [facility] GLUCOSE UA Negative Negative 10/25/2019 10:09 AM CDT [facility] KETONES UA Negative Negative 10/25/2019 10:09 AM CDT [facility] - [facility] UROBILINOGEN UA Normal <2.0 mg/dL 0 10:09 AM CDT [facility] BILIRUBIN UA Negative Negative 10/25/2019 10:09 AM CDT [facility] - [facility] BLOOD UA Negative Negative 10/25/2019 10:09 AM CDT [facility] - . [facility] WBC UA 0-2 0 - 2 /hpf 10/25/2019 10:09 AM CDT [facility] - . [facility] RBC UA 0-2 0 - 2 /hpf 10/25/2019 10:09 AM CDT [facility] - . [facility] BACTERIA UA Negative Negative /hpf 10/25/2019 10:09 AM CDT [facility] EPITHELIAL CELLS, URINE 0-5 0 - 5 /hpf 10/25/2019 10:09 AM CDT [facility] Urine URINE SPECIMEN OBTAINED BY CLEAN CATCH PROCEDURE / Unknown Collection / Unknown 10/25/2019 9:46 AM CDT 10/25/2019 9:55 AM CDT Bon Braga MD URINE ORDERABLES Performing Organization Address City/[facility]/ZIP Co de Phone Number [facility] [employer] [facility] CLIA# [id number] [address] [place] [address] * (ABNORMAL) C-REACTIVE PROTEIN (10/25/2019 9:40 AM CDT) CRP 11.7(H) <5.0 mg/L 10/25/2019 10:44 AM CDT [employer] [facility] [facility] Blood Venipuncture / Unknown 10/25/2019 9:40 AM CDT 10/25/2019 9:53 AM CDT Bon Braga MD CHEMISTRY ORDERABLES [facility] [employer] CLIA# [id number] [address] [place] [address] * (ABNORMAL) COMPREHENSIVE METABOLIC PANEL (10/25/2019 9:40 AM CDT) [facility] SODIUM 141 136 - 145 mmol/L 10/25/2019 10:31 AM T [facility] - . [facility] POTASSIUM 3.8 3.5 - 5.0 mmol/L 10/25/2019 10:31 AM T [facility] - [facility] CHLORIDE 101 98 - 107 mmol/L 10/25/2019 10:31 AM T [facility] - [facility] CO2 28 22 - 29 mmol/L 10/25/2019 10:31 AM T [facility] - . [facility] CALCIUM 9.6 8.6 - 10.2 mg/dL 10/25/2019 10:31 AM T [facility] - [facility] BUN 15 6 - 20 mg/dL 10/25/2019 10:31 AM T [facility] - . [facility] CREATININE 0.79 0.51 - 0.95 mg/dL 10/25/2019 10:31 AM [employer] [facility] - [facility] GLUCOSE 110(H) 74 - 99 mg/dL 10/25/2019 10:31 AM [facility] TOTAL PROTEIN 7.4 6.7 - 8.6 g/dL 10/25/2019 10:31 AM [employer] [facility]ORY SERVICES - . [facility] ALBUMIN 4.4 3.5 - 5.2 g/dL 10/25/2019 10:31 AM [facility] - [facility] BILIRUBIN TOTAL 0.5 0.3 - 1.2 mg/dL 10/25/2019 10:31 AM [employer] [facility] ALKALINE PHOSPHATASE 53 35 - 104 U/L 10/25/2019 10:31 AM [facility] [facility] AST 14 <33 U/L 10/25/2019 10:31 AM [facility] - [facility] ALT 11 <34 U/L 10/25/2019 10:31 AM [facility] LABORATORY SERVICES - [facility] GFR >60 >=60 mL/min/1.7 3 sq meter 10/25/2019 10:31 AM [facility]OR[facility] Comment: eGFR has not been validated for [...] refer to the GFR result. GFR, >60 >=60 mL/min/1.7 3 sq meter 10/25/2019 10:31 AM CDT [facility] ANION GAP 12 8 - 16 mmol/L 10/25/2019 10:31 AM CDT [facility] Blood Venipuncture / Unknown 10/25/2019 9:40 AM CDT 10/25/2019 9:53 AM CDT Narrative [facility] - 10/25/2019 10:31 AM CDT Samples containing indocyanine green cause interferences on Total and/or Direct Bilirubin and must not be measured. Bon Braga MD CHEMISTRY ORDERABLES Performing Organization Address City/[facility]/ZIP Co de Phone Number [facility] CLIA# [id number] [address] [place] [address] * LIPASE (10/25/2019 9:40 AM CDT) [facility] LIPASE 52 13 - 60 U/L 10/25/2019 10:31 AM CDT [facility] Blood Venipuncture / Unknown 10/25/2019 9:40 AM CDT 10/25/2019 9:53 AM CDT Bon Braga MD CHEMISTRY ORDERABLES Performing Organization Address City[facility]/ZIP Co de Phone Number [facility] CLIA# [id number] [address] [place] [address] * (ABNORMAL) CBC WITH DIFFERENTIAL (10/25/2019 9:40 AM CDT) [facility] WBC 8.3 4.0 - 9.8 K/uL 10/25/2019 10:02 AM [facility] LABORATORY SERVICES - [facility] RBC 4.06 3.90 - 4.90 M/uL 10/25/2019 10:02 AM [facility] LABORATORY SERVICES - [facility] HEMOGLOBIN 11.0(L) 11.8 - 14.8 g/dL 10/25/2019 10:02 AM [facility]ORATORY SERVICES - [facility] HEMATOCRIT 36.1 35.5 - 44.0 % 10/25/2019 10:02 AM [employer] LABORATORY SERVICES - [facility] MCV 88.9 82.0 - 99.0 fL 10/25/2019 10:02 AM [facility] LABORAT[facility] SERVICES - [facility] MCH 27.1(L) 27.2 - 32.6 pg 10/25/2019 10:02 AM [facility] LABORATORY SERVICES - [facility] MCHC 30.5(L) 31.5 - 35.5 g/dL 10/25/2019 10:02 AM [facility]ORAT[facility] SERVICES - [facility] RDW 14.9(H) 11.5 - 14.5 % 10/25/2019 10:02 AM [facility]ORATORY SERVICES - [facility] RDW-STDEV 48.4 37.1 - 48.7 fL 10/25/2019 10:02 AM [facility] SERVICES - [facility] PLATELETS 301 140 - 350 K/uL 10/25/2019 10:02 AM [facility] LABORATORY SERVICES - [facility] MPV 9.7 9.3 - 12.4 fL 10/25/2019 10:02 AM [facility] SERVICES - [facility] NEUTROPHILS 84 % 10/25/2019 10:02 AM CDT [facility] - [facility] LYMPHOCYTES 9 % 10/25/2019 10:02 AM CDT [facility] - [facility] MONOCYTES 5 % 10/25/2019 10:02 AM CDT [facility]AT[facility] SERVICES - [facility] EOSINOPHILS 1 % 10/25/2019 10:02 AM CDT [facility] - [facility] BASOPHILS 0 % 10/25/2019 10:02 AM CDT [facility] - [facility] IMMATURE GRANULOCYTES 0 % 10/25/2019 10:02 AM [facility] LABORATORY SERVICES - [facility] NEUTROPHIL ABSOLUTE 6.97 1.90 - 7.00 K/uL 10/25/2019 10:02 AM CDT [facility]OR[facility]ORY SERVICES - . [facility] LYMPHOCYTE ABSOLUTE 0.77 0.70 - 4.50 K/uL 10/25/2019 10:02 AM CDT [facility]ORATORY SERVICES - . [facility] MONOCYTE ABSOLUTE 0.44 0.10 - 1.30 K/uL 10/25/2019 10:02 AM CDT [facility]ORY SERVICES - . [facility] EOSINOPHIL ABSOLUTE 0.06 0.00 - 0.70 K/uL 10/25/2019 10:02 AM CDT [facility]ORATORY SERVICES - . [facility] BASOPHILS ABSOLUTE 0.03 0.00 - 0.20 K/uL 10/25/2019 10:02 AM CDT [facility]OR[facility]ORY SERVICES - . [facility] IMMATURE GRANULOCYTES ABSOLUTE 0.02 0.00 - 0.03 K/uL 10/25/2019 10:02 AM CDT [facility] - [facility] Blood Venipuncture / Unknown 10/25/2019 9:40 AM CDT 10/25/2019 9:54 AM CDT Bon Braga MD HEMATOLOGY ORDERABLE S [facility]# [id number] [address] [place] [address] documented in this encounter Visit Diagnoses Diagnosis Suprapubic abdominal pain- Primary Abdominal pain, other specified site documented in this encounter Administered Medications Inactive Administered Medications - up to 3 most recent administrations Medication Order MAR Action Action Date Dose Rate Site ketorolac (TORADOL) injection 30 mg 30 mg, IV, ONE TIME ONLY, 1 dose, On 10/25/19 at 1045, Stat Given 10/25/2019 10:33 AM CDT 30 mg documented in this encounter Active and Recently Administered Medications Times are shown in CDT. Scheduled Medication Order 10/23/2019 10/24/2019 10/25/2019 ketorolac (TORADOL) injection 30 mg (COMPLETED) 30 mg, IV, ONE TIME ONLY, 1 dose, On 10/25/19 at 1045, Stat 1033 (Given - Provid er: Jackson Ramos RN) documented in this encounter Care Teams Laborer Tan House Relationship Specialty Start Date End Date Brian Mon MD [address] [place] [address] PCP - General Internal Medicine 07/15/19 documented as of this encounter
--- OUTSIDE RECORDS SUMMARY | 2024-02-24 20:37 | XMS_ITS | Encounter Summary ---
Author Organization [facility] Address [address] [place] [address] Care Team Providers Care Chemical Applicator Name Role Phone Brian Mon MD Primary Care Provider Encounter Details Date Type Department Care Team (Latest Contact Info) Description 10/25/2019 10:59 AM CDT - 10/25/2019 11:59 PM CDT Hospital Encounter [facility] [address] [place] [address] Bon Braga MD [address] [place] [address] Discharge Disposition: Home or Self Care Social [...] daily. 04/27/2020 documented as of this encounter Plan of Treatment Not on file documented as of this encounter Procedures Procedure Name Priority Date/Time Associated Diagnosis Comments US PELVIS + TRANSVAG NON OB Stat 10/25/2019 12:24 PM CDT documented in this encounter Results * US PELVIS + TRANSVAG NON OB (10/25/2019 12:24 PM CDT) Anatomical Region Laterality Modality Pelvis Ultrasound 10/25/2019 12:2 5 PM CDT Impressions 10/25/2019 1:23 PM CDT IMPRESSION: No evidence of ovarian torsion. Dictated by Ernie Sweeney MD DICTATION LOCATION: Location [address] [place] [address] 10/25/2019 1:23 PM CDT EXAMINATION: 1. TRANSABDOMINAL [...] by Ernie Sweeney MD DICTATION LOCATION: Location - [facility] Bon Braga MD ORDERABLES documented in this encounter Visit Diagnoses Not on filedocumented in this encounter Care Teams Chemical Applicator Relationship Specialty Start Date End Date Brian Mon MD [address] [place] [id number] PCP - General Internal Medicine 07/15/19 documented as of this encounter
--- OUTSIDE RECORDS SUMMARY | 2024-02-24 20:37 | XMS_ITS | Encounter Summary ---
Author Organization [facility] Address [address] [place] [address] Care Team Providers Care Outdoor Illuminating Engineer Name Role Phone Huseyin Dangelo MD Primary Care Provider [phone] Encounter Details Date Type Department Care Team (Late st Contact Info) Description 06/03/[address] [address] Brandy Nash RN Social History Tobacco Use [...] Encounter - Brandy Nash RN - 06/03/2019 3:36 PM CDT Patient was contacted via SMS to assess symptoms. He/she reported worsening of symptoms today. Pt states she is better now, reached out to PCP and was given Jasiel Nash RN documented in this encounter Plan of Treatment Not on file documented as of this encounter Visit Diagnoses Not on filedocumented in this encounter Additional Health Concerns Infection Onset Date Last Indicated Resolved Time R/O COVID-19 06/02/2019 06/02/2019 06/04/2019 11:0 7 AM CDT documented as of this encounter Care Teams Outdoor Illuminating Engineer Relationship Specialty Start Date End Date Huseyin Dangelo MD PCP - General 09/29/17 07/14/19 documented as of this encounter
--- OUTSIDE RECORDS SUMMARY | 2024-02-24 20:37 | XMS_ITS | Encounter Summary ---
Author Organization [facility] Address [address] [place] [address] Care Team Providers Care Data Processing Clerk Name Role Phone Brian Mon MD Primary Care Provider [phone] Encounter Details Date Type Department Care Team (Late st Contact Info) Description 06/01/2019 Digital Self COVID-1 9 Monitoring [facility] ABSTRACTION [...] as of this encounter Care Teams Data Processing Clerk Relationship Specialty Start Date End Date Brian Mon MD [address] [place] [phone] PCP - General Internal Medicine 07/15/19 documented as of this encounter
--- OUTSIDE RECORDS SUMMARY | 2024-02-24 20:37 | XMS_ITS | Encounter Summary ---
Author Organization [facility] Address [address] [place]: Epic Prelude ADT [place] [address] Care Team Providers Care Shoulder Sawyer Name Role Phone Brian Mon MD Primary Care Provider Encounter Details Date Type Department Care Team (Latest Contact Info) Description 05/11/2020 Travel Social History Tobacco Use Types Packs/Day [...] on filedocumented in this encounter Care Teams Shoulder Sawyer Relationship Specialty Start Date End Date Brian Mon MD [address] [place] [address] PCP - General Internal Medicine 07/15/19 documented as of this encounter
--- OUTSIDE RECORDS SUMMARY | 2024-02-24 20:37 | XMS_ITS | Encounter Summary ---
Author Organization [facility] Address [address] [place] [address] Care Team Providers Care Pattern Drafter Name Role Phone Huseyin Dangelo MD Primary Care Provider [phone] Encounter Details Date Type Department Care Team (Late st Contact Info) Description 06/03/[address] [address] Мария Delgado FNP [id number] [place] [phone] Social History Tobacco Use Types Packs/Day Years [...] Miscellaneous Notes * Telephone Encounter - Мария Perez FNP - 06/03/2019 8:29 AM CDT Carito called returning a call. I do not see a note in Epic except for yesterday. Advised her to call back for any issues or concerns. documented in this encounter Plan of Treatment Not on file documented as of this encounter Visit Diagnoses Not on filedocumented in this encounter Additional Health Concerns Infection Onset Date Last Indicated Resolved Time R/O COVID-19 06/02/2019 06/02/2019 06/04/2019 11:0 7 AM CDT documented as of this encounter Care Teams Pattern Drafter Relationship Specialty Start Date End Date Huseyin Dangelo MD PCP - General 09/29/17 07/14/19 documented as of this encounter
--- OUTSIDE RECORDS SUMMARY | 2024-02-24 20:37 | XMS_ITS | Encounter Summary ---
Author Organization [facility] Address [address] [place] [address] Care Team Providers Care Optometric Aide Name Role Phone Brian Mon MD Primary Care Provider Reason for Visit * Reason Onset Date Comments covid 07/16/2019 Encounter Details Date Type Department Care Team (Late st Contact Info) Description 07/16/2019 Nurse Triage [facility] Nurse physician relations specialist [address] [place] [address] Mali Peña, RN Social History Tobacco Use Types Packs/Day [...] encounter Miscellaneous Notes * Telephone Encounter - Mali Peña RN - 07/16/2019 7:31 PM CDT Patient called for covid 19 test results. Test done yesterday. Patient advised test remains in process and she will be notified when results are in. * Telephone Encounter - Mali Peña RN - 07/16/2019 7:26 PM CDT Regarding: Missed call - - covid test done this week - hasn't gotten results ----- Message from Yazmin Loera RN sent at 07/16/2019 7:22 PM CDT ----- Patient's address on [address]: [address] [place] [address] Patient's current location: Same as above documented in this encounter Plan of Treatment Not on file documented as of this encounter Visit Diagnoses Not on filedocumented in this encounter Additional Health Concerns Infection Onset Date Last Indicated Resolved Time R/O COVID-19 07/15/2019 07/15/2019 07/17/2019 7:43 AM CDT documented as of this encounter Care Teams Optometric Aide Relationship Specialty Start Date End Date Brian Mon MD [address] [place] [address] PCP - General Internal Medicine 07/15/19 documented as of this encounter
--- OUTSIDE RECORDS SUMMARY | 2024-02-24 20:37 | XMS_ITS | Encounter Summary ---
Author Organization [facility] Address [address] [place] [address] Care Team Providers Care Loom Inspector Name Role Phone Brian Mon MD Primary Care Provider Reason for Visit * Reason Comments Menstrual Problem Encounter Details Date Type Department Care Team (Latest Contact Info) Description 08/25/2019 Abstract [facility] ABSTRACTION Provider, Abstract NO ADDRESS ON [...] - Inhaled Oxygen Concentration - - Weight 73.5 kg (162 lb) 05/22/2019 1:52 PM CDT Height 149.9 cm (4' 11 ) 05/22/2019 1:52 PM CDT Body Mass Index 32.72 05/22/2019 1:52 PM CDT documented in this encounter Progress Notes * Genoveva Mccoy - 08/25/2019 2:00 PM CDT Reason for appt: Bleeding and cramping History of present illness: Credentialing Assistant: she denies side pain/adnexal pain. She has not passed tissue. Examination: General appearance: in no acute distress, well developed, well nourished Head: atraumatic Neck/Thyroid: Neck supple, full range of motion, no cervical lymphadenopathy Heart: no murmurs, regular rate and rhythm, S1,2 normal Lungs: clear to auscultation bilaterally Breasts: no examined Abdomen: normal, bowel sounds present, soft, non tender, non distended Female Genitourinary: Normal Extremities: no DVT Psych: Alert, oriented, thought content without suicidal ideation Assessments: 1. , threatened 2. Less than 8 weeks gestation of Treatment: 1. , threatened notes: The last HCG was in the 400's. She is going to repeat the HCG tomorrow. Follow-up: Prn 09/06/2017 pap/gc/chl/reflex to hpv ascus = WNL documented in this encounter Plan of Treatment Not on file documented as of this encounter Visit Diagnoses Not on filedocumented in this encounter Care Teams Loom Inspector Relationship Specialty Start Date End Date Brian Mon MD [address] [place] [phone] PCP - General Internal Medicine 07/15/19 documented as of this encounter
--- OUTSIDE RECORDS SUMMARY | 2024-02-24 20:37 | XMS_ITS | Encounter Summary ---
Author Organization [facility] Address [address] [place] [address] Care Team Providers Care Form Setter Supervisor Name Role Phone Brian Mon MD Primary Care Provider [phone] Encounter Details Date Type Department Care Team (Late st Contact Info) Description 05/30/2019 Digital Self COVID-1 9 Screening [facility] ABSTRACTION [...] documented as of this encounter Care Teams Form Setter Supervisor Relationship Specialty Start Date End Date Brian Mon MD [address] [place] [phone] PCP - General Internal Medicine 07/15/19 documented as of this encounter
--- OUTSIDE RECORDS SUMMARY | 2024-02-24 20:37 | XMS_ITS | Encounter Summary ---
Author Organization [facility] Address [address] [place]: Epic Prelude [place]T [place] [address] Care Team Providers Care Muffle Worker Name Role Phone Brian Mon MD [...] Coronavirus / COVID-19? No / Unsure 05/31/2020 12:38 PM CDT documented as of this encounter Plan of Treatment Not on file documented as of this encounter Visit Diagnoses Not on filedocumented in this encounter Care Teams Muffle Worker Relationship Specialty Start Date End Date Brian Mon MD [address] [place] [phone] PCP - General Internal Medicine 07/15/19 documented as of this encounter
--- OUTSIDE RECORDS SUMMARY | 2024-02-24 20:37 | XMS_ITS | Encounter Summary ---
Author Organization [facility] Address [address] [place] [address] Care Team Providers Care Computer Technologist Name Role Phone Huseyin Dangelo MD Primary Care Provider [phone] Reason for Visit * Reason Onset Date Comments COVID 06/30/2019 Encounter Details Date Type Department Care Team (Late st Contact Info) Description 06/30/2019 Nurse Triage [facility] Nurse house calls nurse practitioner [address] [place] [address] Judit Carcamo RN Social History Tobacco Use Types Packs/Day [...] encounter Miscellaneous Notes * Telephone Encounter - Judit Carcamo RN - 06/30/2019 11:22 AM CDT COVID-19 TRIAGE Do you have a fever of 100.4 or greater? Yes Do you have a cough, which is new? Yes Are you having shortness of breath or difficulty breathing, which is new? No Do you have chronic heart, lung, and/or kidney disease, diabetes mellitus, or are you immunosuppressed? Yes Asthma and Lupus Age = 29 y.o. Have you traveled internationally in the last month? No If yes, location? Have you traveled within the [place] in the last month? No If yes, location? Have you been in contact with a suspected or lab-confirmed coronavirus patient? Yes As of 05/23/2019, patients meet the criteria [...] for COVID-19 testing? Yes Recommendation to patient: Patient has already had 2 negative COVID test. Recommended to self quarantine, good hand washing technique, continue treating symptoms, recommend social distancing. If symptoms worsen, please notify PCP or go to the closest ER. Patient verbalized understanding documented in this encounter Plan of Treatment Not on file documented as of this encounter Visit Diagnoses Not on filedocumented in this encounter Care Teams Computer Technologist Relationship Specialty Start Date End Date Huseyin Dangelo MD PCP - General 09/29/17 07/14/19 documented as of this encounter
--- OUTSIDE RECORDS SUMMARY | 2024-02-24 20:37 | XMS_ITS | Encounter Summary ---
Author Organization [facility] Address [address] [place]: Epic Prelude ADT [place] [address] Care Team Providers Care Harp Action Assembler Name Role Phone Huseyin Dangelo MD Primary Care Provider [phone] Encounter Details Date Type Department Care Team (Latest Contact Info) Description 07/12/2019 Travel Social History Tobacco Use Types Packs/Day [...] have Coronavirus / COVID-19? No / Unsure 07/12/2019 9:42 AM CDT documented as of this encounter Plan of Treatment Not on file documented as of this encounter Visit Diagnoses Not on filedocumented in this encounter Care Teams Harp Action Assembler Relationship Specialty Start Date End Date Huseyin Dangelo MD PCP - General 09/29/17 07/14/19 documented as of this encounter
--- OUTSIDE RECORDS SUMMARY | 2024-02-24 20:37 | XMS_ITS | Encounter Summary ---
Author Organization [facility] Address [address] [place] [address] Care Team Providers Care Scouring Machine Tender Name Role Phone Brian Mon MD Primary Care Provider Encounter Details Date Type Department Care Team (Late st Contact Info) Description 06/02/2019 Digital Self COVID-1 9 Monitoring STL ABSTRACTION [...] documented as of this encounter Care Teams Scouring Machine Tender Relationship Specialty Start Date End Date Brian Mon MD [address] [place] [phone] PCP - General Internal Medicine 07/15/19 documented as of this encounter
--- OUTSIDE RECORDS SUMMARY | 2024-02-24 20:37 | XMS_ITS | Encounter Summary ---
Author Organization [facility] Address [address] [place] [address] Care Team Providers Care Hot Man Name Role Phone Brian Mon MD Primary Care Provider [phone] Reason for Visit * Reason Onset Date Comments Problem 06/02/2020 Encounter Details Date Type Department Care Team (Late st Contact Info) Description 06/02/2020 Telephone [facility] OBGYN [address] [address] [place] [address] [facility] [address], [place] [address] Problem Social History Tobacco Use [...] Miscellaneous Notes * Telephone Encounter - Maryam Daniels Hallie - 06/02/2020 12:07 PM CDT Pt called and asked if measurements of Gestational sac were available? [phone] * Telephone Encounter - Maryam Daniels - 06/02/2020 8:48 AM CDT Pt called Wed Am c/o spotting and cramping since last night. 5 to 6 weeks , asking if Dr. Delgado was in the office and since he wasn't said she was gonna go to ER to get checked out. documented in this encounter Plan of Treatment Not on file documented as of this encounter Visit Diagnoses Not on filedocumented in this encounter Care Teams Hot Man Relationship Specialty Start Date End Date Brian Mon MD [address] [place] [phone] PCP - General Internal Medicine 07/15/19 documented as of this encounter
--- OUTSIDE RECORDS SUMMARY | 2024-02-24 20:37 | XMS_ITS | Encounter Summary ---
Author Organization [facility] Address [address] [place] [address] Care Team Providers Care Overhead Cleaner Maintainer Name Role Phone Brian Mon MD Primary Care Provider [phone] Reason for Visit * Reason Onset Date Comments Medication Assistance 06/01/2020 Encounter Details Date Type Department Care Team (Late st Contact Info) Description 06/01/2020 Telephone [facility] OBGYN [address], [place] [address] [place] [address] [facility] [address], [place] [address] Medication Assistance Social History Tobacco Use Types Packs/Day Years [...] * Telephone Encounter - Krista Mullins - 06/01/2020 10:12 AM CDT Pt would like to talk to you today regarding her medications. * Telephone Encounter - Krisat Mullins - 06/01/2020 9:29 AM CDT Pt states that she cannot stop taking the prednisone and tonight it is going to be changed to hydrocotisone 10g in the morning and 5mg in the evening. 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 * Telephone Encounter - Krista Mullins - 06/01/2020 9:28 AM CDT ----- Message from Sheldon Delgado MD sent at 05/31/2020 2:16 PM CDT ----- Regarding: Prednisone Tell Carito I want her to stop the Prednisone until she is 9 weeks along. FP documented in this encounter Plan of Treatment Not on file documented as of this encounter Visit Diagnoses Not on filedocumented in this encounter Care Teams Overhead Cleaner Maintainer Relationship Specialty Start Date End Date Brian Mon MD [address] [place] [address] PCP - General Internal Medicine 07/15/19 documented as of this encounter
--- OUTSIDE RECORDS SUMMARY | 2024-02-24 20:37 | XMS_ITS | Encounter Summary ---
Author Organization [facility] Address [address] [place] [address] Care Team Providers Care Artificial Marble Worker Name Role Phone Brian Mon MD Primary Care Provider Reason for Visit * Reason Comments Vaginal Discharge Encounter Details Date Type Department Care Team (Latest Contact Info) Description 06/04/2020 11:[address] [facility] [place] [address] [facility] [place] [address] [place] [address] [address] [place] [address] [place] [address] [facility] [address] [address] Threatened in early (Primary Dx); H/O miscarriage, currently , first trimester; Less than 8 weeks gestation of ; Herpes simplex vulvovaginitis Social History Tobacco Use [...] Reading Time Taken Comments Blood Pressure 120/72 06/04/2020 12:06 PM CDT Pulse - - Temperature - - Respiratory Rate - - Oxygen Saturation - - Inhaled Oxygen Concentration - - Weight 80.1 kg (176 lb 9.6 oz) 06/04/2020 12:06 PM CDT Height 160 cm (5' 3 ) 06/04/2020 12:06 PM CDT Body Mass Index 31.28 06/04/2020 12:06 PM CDT documented in this encounter Progress Notes * Sheldon Delgado MD - 06/04/2020 12:25 PM CDT [facility] on [facility] Car[place] 30 y.o. 1990 HISTORY Chief Complaint Patient presents with ??? Vaginal Discharge HPI: 30 y.o., , No LMP recorded (lmp unknown). Patient is ., This patient is taking her progesterone. Her beta hCG levels are doubling. The gestational sac last visit was 0.93 cm. She is not bleeding. She complains of vulvar discomfort. Past Medical History: Diagnosis Date ??? Gume's disease ??? Anxiety ??? Connective tissue disease ??? Depression ??? Fibromyalgia ??? Herpes ??? HTN (hypertension) ??? Hx of hyperprolactinemia ??? Lupus Past Surgical History: Procedure Laterality Date ??? HX APPENDECTOMY ??? HX MEDIAN NERVE REPAIR No family history on file. Current Outpatient Medications: ??? valACYclovir (Valtrex) 500 mg tablet, Take [...] Types: Cigarettes Quit date: 12/11/2017 Years since quittin.4 ??? Smokeless tobacco: Never Used Vaping Use [...] Gatherings with Friends and Family: ??? Attends Orthodox Services: ??? Active Member of Clubs or [...] urgency, dysuria, vasomotor symptoms, PHYSICAL EXAMINATION Vitals: 06/04/20 1206 BP: 120/72 Weight: 80.1 kg (176 lb 9.6 oz) Height: 5' 3 (1.6 m) Body mass index is 31.28 kg/m??. Head: normocephalic and atraumatic Neck: normal without enlarged thyroid, no thyroid nodules are noted. Skin: warm and dry. Cardiovascular: RRR, I do not appreciate a gallop. Lungs: Clear without crackles and wheezes Abdomen: soft, not an acute abdomen, not distended, no guarding Lower Extremities: She has no evidence of a deep venous thrombosis. Pelvic: floor surfacer present at exam, the vulva is without lesions, the clitoris is within normal limits without irritation or erythema, the perineal body is intact, the vagina is without masses or discharge, normal vaginal rugae are noted. Both adnexa palpate within normal limits. The cervix is without discharge and CMT. The uterus is normal in size shape and contour Breast Examination: Not done. Encounter Diagnoses Code Name Primary? O20.0 Threatened in early Yes ??? O09.291 H/O miscarriage, currently , first trimester ??? Z3A.01 Less than 8 weeks gestation of ??? A60.04 Herpes simplex vulvovaginitis PLAN: Based on today's crown-rump length at 5.5 weeks her estimated due date is January 30, 2021. I did prescribe this patient Valtrex for her herpes genitalia. She has had 2 miscarriages in the past. She has lupus and Caldwell's disease. She takes hydroxychloroquine and hydrocortisone. I did discusswith this patient the different risk benefits and alternatives regarding these medications in the first trimester especially the hydrocortisone. However her home visits nurse feels that the benefits of the hydrocortisone outweigh the risk. She waspreviously on prednisone prior to this week. This was at the instruction of her home visits nurse. She is seeing a high risk maternal- medicine specialist at [facility]. I told her to increase the yogurt in her diet to help combat the yeast infection as she cannot takeDiflucan with hydroxychloroquine. My medical laboratory technician was present. Security Installer was present the entire visit including the examination, Stacey An ultrasound was done today. I reviewed all of the images and results. I discussed the results with the patient. I discussed myimpression with the patient. Follow- up regarding this ultrasound was given. The treatment plan was discussed and agreed upon.A total of 20 minutes were spent in [...] patients expectations. This report was transcribed using [employer] speaking voice recognition system. Despite editing there may be minor grammatical and/or minor typographical errors in this forest science professor due to thelimitations inherent with voice activated computer dictation. This should not adversely affect the overall integrity of the document. Please call for any questions or clarifications as needed. documented in this encounter Plan of Treatment Not on file documented as of this encounter Results * US OB TRANSVAGINAL (06/04/2020 12:48 PM CDT) [facility] ([place]) [facility] OBGYN [address] [address] Sac Diameter [facility] O BGYN [address] FHR [facility] OBGY N [address] [address] Anatomical Region Laterality Modality Pelvis Ultrasound Narrative 06/04/2020 12:48 PM CDT This is a transvaginal ultrasound. ??Results included but are not limited to a uterus length measuring 9.91 cm and a uterine height of 4.53 cm. ??The left ovary measures 2.87 cm x 2.25 cm. ??The right ovary measures 2.74 cm x 1.25 cm. ??The crown- rump length is 0.24 cm. ??The single viable intrauterine measures 5 weeks and 5 days with an estimated due date of January 30, 2021. ??No free fluid was seen. Indication: Threatened Plan: Repeat ultrasound in 2 weeks Impression: Single viable intrauterine with an estimated due date of 01/30/2021. Sheldon Delgado MD ORDERABLES documented in this encounter Visit Diagnoses Diagnosis Threatened in early - Primary Threatened , unspecified as to episode of care H/O miscarriage, currently , first trimester Less than 8 weeks gestation of state, incidental Herpes simplex vulvovaginitis documented in this encounter Care Teams Artificial Marble Worker Relationship Specialty Start Date End Date Brian Mon MD [address] [place] [address] PCP - General Internal Medicine 07/15/19 documented as of this encounter
--- OUTSIDE RECORDS SUMMARY | 2024-02-24 20:37 | XMS_ITS | Encounter Summary ---
Author Organization [facility] Address 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 + dizziness. pt urinating more frequently. pt had negative covid test on dat. pt has fever 2 days ago Encounter Details Date Type Department Care Team (Late st Contact Info) Description 10/23/2019 3:40 PM CDT - 10/23/2019 4:30 PM CDT Emergency [facility] Emergency Department [address] [place] [id number] Silas Frank MD [address] [place] [address] Upper abdominal pain, unspecified (Primary Dx); S/P appendectomy; Leukocytosis, unspecified type; History of lupus Discharge Disposition: Home or Self Care Social [...] Sign Reading Time Taken Comments Blood Pressure 137/80 10/23/2019 2:12 PM CDT Pulse - - Temperature 37.1 ??C (98.7 ??F) 10/23/2019 2:12 PM CD T Respiratory Rate 18 10/23/2019 2:12 PM CDT Oxygen Saturation 100% 10/23/2019 2:12 PM CDT Inhaled Oxygen Concentration - - Weight 77.1 kg (170 lb) 10/23/2019 2:12 PM CDT Height 157.5 cm (5' 2 ) 10/23/2019 2:12 PM CDT Body Mass Index 31.09 10/23/2019 2:12 PM CDT documented in this encounter Discharge Instructions * Discharge Instructions* Silas Frank MD - 10/23/2019 4:28 PM CDT Continue with your followup with your HIDA scan scheduled on Sunday. * Attachments The following attachments cannot be sent through Care Everywhere. * Abdominal Pain (Amharic) documented in this encounter Medications at Time of Discharge Medication Sig Dispensed Refills Start Date End Date omeprazole (PriLOSEC) 20 mg Capsule, Delayed Release(E.C.) Take 20 mg by mouth daily. hydroxychloroquine (PLAQUENIL) 200 mg tablet Take 200 mg by mouth daily. valACYclovir (VALTREX) 1 gram tablet Take 1,000 mg by mouth 2 times daily. 04/27/2020 documented as of this encounter ED Notes * Leanne Mistry RN - 10/23/2019 4:05 PM CDT Pt requesting a pelvic exam. * Leanne Mistry RN - 10/23/2019 3:50 PM CDT Pt is here with c/o abd pain. Pt states that she is also having epigastric pain with vomiting, diarrhea and dizziness for about a week now. Pt states that she has been urinating more frequently. Pt had a negative COVID test on Sunday due to having a fever 2 days ago. * Silas Frank MD - 10/23/2019 1:47 PM CDTAssociated Order(s): POC US BILIARY Images from the original note were not included. Emergency Department Attending Physician Note Physician Summary 29 y.o. female who presented with abdominal pain, vomiting, has been ongoing for the past several months, has been seen >30x in various EDs in this year alone, has had extensive testing including US liver, CT scan which have been unremarkable. Well appearing, bedside US showed no gallstones, no gallbladder wall thickening. Labs relatively stable. Has scheduled HIDA in the next week, told to continue with this, will return with any worsening or concerning symptoms. History of Present Illness Primary Care Doctor: Brian Mon MD Documented Triage Chief Complaint: Abdominal Pain Physician arrived in the room at: 3:54 PM Carito Rausch is a 29 y.o. female who presents with abd pain. Pt reports hx of lupus. Reports for the last 3 months she has had diarrhea and diffuse abd pain that is worse in her epigastric region especially after eating with associated N/V every time she eats food. Pt also reporting lightheadedness. Some chest pain which she attributes to her epigastric pain. No SOB. Pt also complaining of urinary frequency and dark foul smelling urine with some associated pelvic pain. Saw her PCP today who recommended further evaluation in ER. Pt scheduled for HIDA scan 10/27. Per chart review pt has been seen in the ER 37 times in the past year. Has had previous appendectomy. Had normal coloscopy and endoscopy. Had US of liver earlier this year which was negative. Timing (Onset, frequency/progression): gradual Location: abdomen Severity: moderate Duration: Last 3 months Frequency/Progression: unchanged Quality: throbbing Radiation: none Modifiers: none Associated symptoms: See above Mode of Arrival: private vehicle Patient information was obtained from: the patient History/Exam limitations: none Relevant Medical History Past Medical History: Past Medical History: Diagnosis Date ??? Anxiety ??? Connective tissue disease ??? Depression ??? Fibromyalgia ??? Herpes ??? HTN (hypertension) ??? Lupus Past Surgical History: Past Surgical History: Procedure Laterality Date ??? HX APPENDECTOMY ??? HX MEDIAN NERVE REPAIR Home Medications: Discharge Medication List as of 10/23/2019 4:36 PM START taking these medications Details fluconazole (DIFLUCAN) 200 mg tablet Take 1 Tablet (200 mg) by mouth daily. Take 1 tablet; take another dose if symptoms do not resolve after 1 week., Disp-2 Tablet,R-0 CONTINUE these medications which have NOT CHANGED Details capsaicin (ZOSTRIX) 0.025 % Cream Apply to affected area 3 times daily. omeprazole (PriLOSEC) 20 mg Capsule, Delayed Release(E.C.) Take 20 mg by mouth daily. leflunomide (ARAVA) 20 mg Tablet Take 20 mg by mouth. acetaminophen (TYLENOL) 500 mg tablet Take 500 mg by mouth every 6 hours as needed. oxyCODONE-acetaminophen (PERCOCET) 5-325 mg tablet Take 1 to 2 tablets every 6-8 hours as needed for pain control., Disp-15 Tablet, R-0 ondansetron (ZOFRAN ODT) 4 mg Tablet, Rapid Dissolve Take 1 Tablet (4 mg) by mouth every 8 hours asneeded for Nausea/Emesis. Dissolve tablet on top of tongue, then swallow with saliva., Disp-12 Tablet, R-0 Lidocaine (LIDOCAINE PAIN RELIEF) 4 % Adhesive Patch, Medicated Apply one patch to painful area every 24 hours., Disp-5 Patch, R-0 cyclobenzaprine (FLEXERIL) 10 mg tablet Take 1 Tablet (10 mg) by mouth 3 times daily as needed for Spasm., Disp-12 Tablet, R-0 mycophenolate mofetil (CELLCEPT) 250 mg Capsule Take 250 mg by mouth 2 times daily. predniSONE (DELTASONE) 10 mg tablet Take 10 mg by mouth 2 times daily with meals. ketorolac tromethamine (TORADOL) 10 mg tablet Take 1 Tablet (10 mg) by mouth every 6 hours as needed for Pain, Mild., Disp-20 Tablet, R-None ALPRAZolam (XANAX) 0.25 mg tablet Take 0.25 mg by mouth 3 times daily as needed for Anxiety. hydroxychloroquine (PLAQUENIL) 200 mg tablet Take 200 mg by mouth daily. ondansetron (ZOFRAN) 4 mg Tablet Take 1 Tablet (4 mg) by mouth every 8 hours as needed for Nausea.,Disp-15 Tablet, R-None HYDROcodone-acetaminophen (NORCO) 5-325 mg tablet Take 1 Tablet by mouth every 4 hours as needed for Pain. Max Daily Amount: 6 Tablets, Disp-20 Tablet, R-0 valACYclovir (VALTREX) 1 gram tablet Take 1,000 mg by mouth 2 times daily. Allergies: Methylprednisolone Social History: reports that she quit smoking about 22 months ago. Her smoking use included cigarettes. She smoked 0.25 packs per day. She has never used smokeless tobacco. She reports current alcohol use. She reports previous drug use. Drugs: Marijuana and Cocaine. Family History: family history is not on file. Review of Systems ?? A comprehensive review of systems was completed. All other systems negative except as marked. ?? See HPI for additional ROS Constitutional: No Fever Eyes: No vision change, no photophobia ENT: No rhinorrhea, No sore throat Respiratory: No cough Cardiac: + chest pain, No palpitations GI: + diffuse abdominal pain, + nausea, + vomiting, + diarrhea : No dysuria or genital discharge, no hematuria, + urinary frequency, malodorous urine, + pelvic pain Musculoskeletal: No joint pain, no muscle aches Skin: No rash Heme: No spontaneous bleeding, no bruising Neuro: No weakness, no numbness/tingling, no difficulty walking, + lightheaded Psych: No hallucinations, no acute change in mood Physical Exam BP: 137/80 (10/23/19 1412), Pulse: (not recorded), Resp: 18 (10/23/19 141), Temp: 98.7 ??F (37.1 ??C) (10/23/19 141), Temp src: Oral (10/23/191411) General: No acute distress, cooperative Eyes: HEENT: No sclera injection, no conjunctiva discharge Nose without drainage, mucous membranes moist, tympanic membranes intact Neck: No tenderness Back: No tenderness Heart: Regular rate and rhythm without murmur Lungs: Clear to ausculation bilaterally Abdomen: Soft, diffuse abd pain, no large masses palpated Rectal/Genital: Not performed Extremities: No significant edema, no calf tenderness, distal pulses intact Pulses: 2+ radial = bilat Skin: No rash, no petechiae, no purpura Lymphatic: No lymphadenopathy noted Neuro: No facial droop, good and equal strength and sensation in all extremities. CN and DTRs intact Psych: Alert and oriented x 3 with good recall for recent/remote. Studies and Interpretation Pulse Oximetry Interpretation: Saturation: 100% Oxygen Delivery: Room Air Interpretation: No hypoxia at this time Imaging (all imaging was independently reviewed by myself): No orders to display Labs: (Reviewed by myself), Significant for: Results for orders placed or performed during the hospital encounter of 10/23/19 (from the past 24 hour(s)) CBC WITH DIFFERENTIAL Result Value Ref Range WBC 12.4 (H) 4.0 - 9.8 K/uL RBC 4.22 3.90 - 4.90 M/uL HEMOGLOBIN 11.4 (L) 11.8 - 14.8 g/dL HEMATOCRIT 37.7 35.5 - 44.0 % MCV 89.3 82.0 - 99.0 fL MCH 27.0 (L) 27.2 - 32.6 pg MCHC 30.2 (L) 31.5 - 35.5 g/dL RDW 14.8 (H) 11.5 - 14.5 % RDW-STDEV 47.9 37.1 - 48.7 fL PLATELETS 348 140 - 350 K/uL MPV 9.6 9.3 - 12.4 fL NEUTROPHILS 87 % LYMPHOCYTES 7 % MONOCYTES 5 % EOSINOPHILS 0 % BASOPHILS 0 % IMMATURE GRANULOCYTES 0 % NEUTROPHIL ABSOLUTE 10.87 (H) 1.90 - 7.00 K/uL LYMPHOCYTE ABSOLUTE 0.88 0.70 - 4.50 K/uL MONOCYTE ABSOLUTE 0.61 0.10 - 1.30 K/uL EOSINOPHIL ABSOLUTE 0.02 0.00 - 0.70 K/uL BASOPHILS ABSOLUTE 0.02 0.00 - 0.20 K/uL IMMATURE GRANULOCYTES ABSOLUTE 0.04 (H) 0.00 - 0.03 K/uL COMPREHENSIVE METABOLIC PANEL Result Value Ref Range SODIUM 141 136 - 145 mmol/L POTASSIUM 4.1 3.5 - 5.0 mmol/L CHLORIDE 102 98 - 107 mmol/L CO2 27 22 - 29 mmol/L CALCIUM 9.4 8.6 - 10.2 mg/dL BUN 11 6 - 20 mg/dL CREATININE 0.67 0.51 - 0.95 mg/dL GLUCOSE 106 (H) 74 - 99 mg/dL TOTAL PROTEIN 7.8 6.7 - 8.6 g/dL ALBUMIN 4.7 3.5 - 5.2 g/dL BILIRUBIN TOTAL 0.2 (L) 0.3 - 1.2 mg/dL ALKALINE PHOSPHATASE 56 35 - 104 U/L AST 16 <33 U/L ALT 13 <34 U/L GFR >60 >=60 mL/min/1.73 sq meter GFR, >60 >=60 mL/min/1.73 sq meter ANION GAP 12 8 - 16 mmol/L LIPASE Result Value Ref Range LIPASE 41 13 - 60 U/L URINALYSIS WITH REFLEX MICROSCOPIC Result Value Ref Range COLOR UA Yellow Pale to Dark Yellow CLARITY UA Clear Clear SPECIFIC GRAVITY UA 1.020 1.003 - 1.035 PH UA 7.0 5.0 - 8.0 LEUKOCYTE ESTERASE UA Negative Negative NITRITE UA Negative Negative PROTEIN UA 2+ (A) Negative GLUCOSE UA Negative Negative KETONES UA Negative Negative UROBILINOGEN UA Normal <2.0 mg/dL BILIRUBIN UA Negative Negative BLOOD UA Negative Negative WBC UA 0-2 0 - 2 /hpf RBC UA 3-5 (A) 0 - 2 /hpf BACTERIA UA Negative Negative /hpf EPITHELIAL CELLS, URINE 0-5 0 - 5 /hpf Ascorbic Acid UA Positive (A) Negative POC , URINE Result Value Ref Range HCG QUAL URINE Negative Negative FIELD SUPERVISOR NAME GLADIS DALY POC SPECIFIC GRAVITY UA 1.015 1.000 - 1.030 Medical Decision Making and ED Course Initial Evaluation: 29 y.o. female who presents with nausea, vomiting, abd pain. With reviewing triage note/vitals as well as initial encounter with patient and exam, I had considered at least at one time in the differential: gastritis, IBS, lupus, gallbladder disease. I reviewed prior records and noted multiple ER visits for various complaints. Initial blood work and imaging included: basic labs, lipase. Medications given initially were: none. Updates ED Course as of Oct 22 1701 Rachel Oct 23, 2019 1604 Upper abdominal pain, vomiting, ongoing for 3 months, hx/o lupus, has had extensive workup in the past which has been negative. Bedside US showed no gallstones, no gallbladder wall thickening, will check labs, UA, patient requesting pelvic exam. [JS] ED Course User Index [JS] Silas Frank MD Medications Ordered/Given Medications - No data to display Further Management Decisions and Complexity --Triage notes reviewed, vitals reviewed. --Clinical lab tests: ordered and reviewed by myself prior to discharge/admission --Independent visualization of any images, tracings, or specimens (including EKGs): yes --Attempted to obtain, review and summarize past medical records: yes Critical Care / Procedures POC US BILIARY Date/Time: 10/23/2019 4:00 PM Performed by: Silas Frank MD Authorized by: Silas Frank MD Exam Type: Diagnostic Clinical Category: Symptom Based Initial or Repeat Exam: Initial Exam Indication(s) for Exam: abdominal pain Views: Gallbladder Long Ruso: Adequate Gallbladder Short Ruso: Adequate Findings: Gallstone(s): Absent Gallbladder Wall: Not thickened Interpretation: no significant biliary pathology identified No critical care time was provided for the patient. Final Disposition : I updated the patient on findings, diagnosis, and plan for discharge. Any prescriptions given arelisted below and they were instructed to follow up with the given provider. Pt agrees with the planand is comfortable going home. The patient is clinically well; my impression is that at this time, they are safe for discharge. I have spent time counseling the patient on their diagnosis, findings, results, and plan including strict return to ER instructions for this diagnosis and mandatory followup. Patient was made aware of incidental findings including: none. After my full evaluation and plan for discharge, I have low suspicion for: cholecystitis, sepsis. Vitals at Discharge: BP 137/80 Temp 98.7 ??F (37.1 ??C) (Oral) Resp 18 Ht 5' 2 (1.575 m) Wt 77.1 kg (170 lb) LMP 10/09/2019 SpO2 100% BMI 31.09 kg/m?? New Prescriptions: Discharge Medication List as of 10/23/2019 4:36 PM START taking these medications Details fluconazole (DIFLUCAN) 200 mg tablet Take 1 Tablet (200 mg) by mouth daily. Take 1 tablet; take another dose if symptoms do not resolve after 1 week., Disp-2 Tablet,R-0 CONTINUE these medications which have NOT CHANGED Details capsaicin (ZOSTRIX) 0.025 % Cream Apply to affected area 3 times daily. omeprazole (PriLOSEC) 20 mg Capsule, Delayed Release(E.C.) Take 20 mg by mouth daily. leflunomide (ARAVA) 20 mg Tablet Take 20 mg by mouth. acetaminophen (TYLENOL) 500 mg tablet Take 500 mg by mouth every 6 hours as needed. oxyCODONE-acetaminophen (PERCOCET) 5-325 mg tablet Take 1 to 2 tablets every 6-8 hours as needed for pain control., Disp-15 Tablet, R-0 ondansetron (ZOFRAN ODT) 4 mg Tablet, Rapid Dissolve Take 1 Tablet (4 mg) by mouth every 8 hours asneeded for Nausea/Emesis. Dissolve tablet on top of tongue, then swallow with saliva., Disp-12 Tablet, R-0 Lidocaine (LIDOCAINE PAIN RELIEF) 4 % Adhesive Patch, Medicated Apply one patch to painful area every 24 hours., Disp-5 Patch, R-0 cyclobenzaprine (FLEXERIL) 10 mg tablet Take 1 Tablet (10 mg) by mouth 3 times daily as needed for Spasm., Disp-12 Tablet, R-0 mycophenolate mofetil (CELLCEPT) 250 mg Capsule Take 250 mg by mouth 2 times daily. predniSONE (DELTASONE) 10 mg tablet Take 10 mg by mouth 2 times daily with meals. ketorolac tromethamine (TORADOL) 10 mg tablet Take 1 Tablet (10 mg) by mouth every 6 hours as needed for Pain, Mild., Disp-20 Tablet, R-None ALPRAZolam (XANAX) 0.25 mg tablet Take 0.25 mg by mouth 3 times daily as needed for Anxiety. hydroxychloroquine (PLAQUENIL) 200 mg tablet Take 200 mg by mouth daily. ondansetron (ZOFRAN) 4 mg Tablet Take 1 Tablet (4 mg) by mouth every 8 hours as needed for Nausea.,Disp-15 Tablet, R-None HYDROcodone-acetaminophen (NORCO) 5-325 mg tablet Take 1 Tablet by mouth every 4 hours as needed for Pain. Max Daily Amount: 6 Tablets, Disp-20 Tablet, R-0 valACYclovir (VALTREX) 1 gram tablet Take 1,000 mg by mouth 2 times daily. Patient was made aware of potential side effects of prescription medications including: diflucan - none Follow Up: Your regular physician Diagnosis: Encounter Diagnoses Code Name Primary? R10.10 Upper abdominal pain, unspecified Yes ??? Z90.49 S/P appendectomy ??? D72.829 Leukocytosis, unspecified type ??? M32.9 History of lupus Patient's chronic conditions, specifically none were reviewed and were deemed stable as well prior to discharge. . Disposition: Discharge This note has been prepared by Georges Weaver acting as a scribe for Dr. Silas Frank on 10/23/2019 at 4:37 PM. The scribe's documentation has been prepared under my direction and personally reviewed by me, Silas Frank MD, 10/23/2019 5:02 PM, in its entirety on 10/23/19 at 5:02 PM. I confirm that the note above accurately reflects all work, treatment, procedures, and medical decision making performedby me. documented in this encounter Plan of Treatment Not on file documented as of this encounter Procedures Procedure Name Priority Date/Time Associated Diagnosis Comments 2019 NOVEL CORONAVIRUS (COVID-19) PCR DETECTION Stat 10/23/2019 4:46 PM CDT POC , URINE Stat 10/23/2019 4:03 PM CDT URINALYSIS W/REFLEX MICROSCOPIC Stat 10/23/2019 3:53 PM CDT CBC WITH DIFFERENTIAL Stat 10/23/2019 3:45 PM CDT LIPASE Stat 10/23/2019 3:45 PM CDT COMPREHENSIVE METABOLIC PANEL Stat 10/23/2019 3:45 PM CDT POC US BILIARY Stat 10/23/2019 1:47 PM CDT documented in this encounter Results * 2019 NOVEL CORONAVIRUS (COVID-19) PCR DETECTION (10/23/2019 4:46 PM CDT) COVID-19 PCR NOT DETECTED Not Detected 10/24/19 20 4:18 AM CDT [facility] 10/24/2019 4:18 AM CDT [facility] Upper Respiratory ENTIRE NASOPHARYNX / Unknown Collection / Unknown 10/23/2019 4:46 PM CDT 10/23/2019 4:55 PM CDT Narrative [facility] - 10/24/2019 4:18 AM CDT This test has been authorized by the FDA under an Emergency Use Authorization for use by authorized laboratories.?? This test has been validated in accordance with the FDA's guidance regarding Coronavirus Disease-2019 testing.?? Optimum specimen types and timing for peak viral levels during infection have not been determined.?? A negative RT-PCR result does not rule out infection with the 2019-Novel Coronavirus. Silas Frank MD MICROBIOLOGY - [facility] ORDERABLES [facility]# [id number] [address] [place] [address] * POC , URINE (10/23/2019 4:03 PM CDT) HCG QUAL URINE Negative Negative 10/23/2019 4:03 PM CDT [facility] FIELD SUPERVISOR NAME POC GLADIS DALY 10/23/2019 4:03 PM CDT [facility] SPECIFIC GRAVITY UA POC 1.015 1.000 - 1.030 10/23/2019 4:03 PM CDT [facility] Urine 10/23/2019 4:03 PM CDT 10/23/2019 4:05 PM CDT Silas Frank MD POINT OF CARE [facility] CLIA# [id number] [address] [place] [address] * (ABNORMAL) URINALYSIS WITH REFLEX MICROSCOPIC (10/23/2019 3:53 PM CDT) COLOR UA Yellow Pale to Dark Yellow 10/23/2019 4:11 PM CDT [facility] CLARITY UA Clear Clear 10/23/2019 4:11 PM CDT [facility] - [facility] SPECIFIC GRAVITY UA 1.020 1.003 - 1.035 10/23/2019 4:11 PM CDT [facility] - [facility] PH UA 7.0 5.0 - 8.0 10/23/2019 4:11 PM CDT [facility] LEUKOCYTE ESTERASE UA Negative Negative 10/23/2019 4:11 PM CDT [facility] NITRITE UA Negative Negative 10/23/2019 4:11 PM CDT [facility] PROTEIN UA 2+(A) Negative 10/23/2019 4:11 PM CDT [facility] GLUCOSE UA Negative Negative 10/23/2019 4:11 PM CDT [facility] KETONES UA Negative Negative 10/23/2019 4:11 PM CDT [facility] UROBILINOGEN UA Normal <2.0 mg/dL 0 4:11 PM CDT [facility] BILIRUBIN UA Negative Negative 10/23/2019 4:11 PM CDT [facility] BLOOD UA Negative Negative 10/23/2019 4:11 PM CDT [facility] Comment:Ascorbic acid may ca use false negative results for blood. A microscopic review was reflexed to rule out this interference. WBC UA 0-2 0 - 2 /hpf 10/23/2019 4:11 PM CDT [facility] RBC UA 3-5(A) 0 - 2 /hpf 10/23/2019 4:11 PM CDT [facility] BACTERIA UA Negative Negative /hpf 10/23/2019 4:11 PM CDT [facility] EPITHELIAL CELLS, URINE 0-5 0 - 5 /hpf 10/23/2019 4:11 PM CDT [facility] Ascorbic Acid UA Positive(A) Negative 020 4:11 PM CDT [facility] Urine URINE SPECIMEN OBTAINED BY CLEAN CATCH PROCEDURE / Unknown Collection / Unknown 10/23/2019 3:53 PM CDT 10/23/2019 3:57 PM CDT Silas Frank MD URINE ORDERABLES Performing Organization Address [facility]/ZIP Co de Phone Number [facility] CLIA# [id number] [address] [place] [address] * LIPASE (10/23/2019 3:45 PM CDT) LIPASE 41 13 - 60 U/L 10/23/2019 4:22 PM CDT [facility] Blood Venipuncture / Unknown 10/23/2019 3:45 PM CDT 10/23/2019 3:52 PM CDT Silas Frank MD CHEMISTRY ORDERAB LES Performing Organization Address City/[facility]/ZIP Co de Phone Number [facility] [employer] [facility] CLIA# [id number] [address] [place] [address] * (ABNORMAL) COMPREHENSIVE METABOLIC PANEL (10/23/2019 3:45 PM CDT) SODIUM 141 136 - 145 mmol/L 10/23/2019 4:22 PM CDT [facility] - [facility] POTASSIUM 4.1 3.5 - 5.0 mmol/L 10/23/2019 4:22 PM CDT [facility] - [facility] CHLORIDE 102 98 - 107 mmol/L 10/23/2019 4:22 PM CDT [facility] CO2 27 22 - 29 mmol/L 10/23/2019 4:22 PM CDT [facility] CALCIUM 9.4 8.6 - 10.2 mg/dL 10/23/2019 4:22 PM CDT [facility] BUN 11 6 - 20 mg/dL 10/23/2019 4:22 PM CDT [facility] CREATININE 0.67 0.51 - 0.95 mg/dL 10/23/2019 4:22 PM [facility] GLUCOSE 106(H) 74 - 99 mg/dL 10/23/2019 4:22 PM [facility] TOTAL PROTEIN 7.8 6.7 - 8.6 g/dL 10/23/2019 4:22 PM [facility] ALBUMIN 4.7 3.5 - 5.2 g/dL 10/23/2019 4:22 PM [facility] BILIRUBIN TOTAL 0.2(L) 0.3 - 1.2 mg/dL 10/23/2019 4:22 PM [facility] ALKALINE PHOSPHATASE 56 35 - 104 U/L 10/23/2019 4:22 PM [facility] AST 16 <33 U/L 10/23/2019 4:22 PM [facility] ALT 13 <34 U/L 10/23/2019 4:22 PM [facility] GFR >60 >=60 mL/min/1.7 3 sq meter 10/23/2019 4:22 PM [facility] Comment: eGFR has not been validated [...] GFR, >60 >=60 mL/min/1.7 3 sq meter 10/23/2019 4:22 PM [facility] ANION GAP 12 8 - 16 mmol/L 10/23/2019 4:22 PM [facility] Blood Venipuncture / Unknown 10/23/2019 3:45 PM CDT 10/23/2019 3:52 PM [facility] [facility] - 10/23/2019 4:22 PM CDT Samples containing indocyanine green cause interferences on Total and/or Direct Bilirubin and must not be measured. Silas Frank MD CHEMISTRY ORDERAB LES [facility] CLIA# [id number] [address] [facility] [place] [address] [place] [address] * (ABNORMAL) CBC WITH DIFFERENTIAL (10/23/2019 3:45 PM CDT) [facility] WBC 12.4(H) 4.0 - 9.8 K/uL 10/23/2019 4:01 PM CDT [facility] RBC 4.22 3.90 - 4.90 M/uL 10/23/2019 4:01 PM CDT [facility] HEMOGLOBIN 11.4(L) 11.8 - 14.8 g/dL 10/23/2019 4:01 PM CDT [facility] HEMATOCRIT 37.7 35.5 - 44.0 % 10/23/2019 4:01 PM CDT [facility] MCV 89.3 82.0 - 99.0 fL 10/23/2019 4:01 PM CDT [facility] MCH 27.0(L) 27.2 - 32.6 pg 10/23/2019 4:01 PM CDT [facility] MCHC 30.2(L) 31.5 - 35.5 g/dL 10/23/2019 4:01 PM CDT [facility] RDW 14.8(H) 11.5 - 14.5 % 10/23/2019 4:01 PM CDT [facility] RDW-STDEV 47.9 37.1 - 48.7 fL 10/23/2019 4:01 PM CDT [facility] PLATELETS 348 140 - 350 K/uL 10/23/2019 4:01 PM CDT [facility] MPV 9.6 9.3 - 12.4 fL 10/23/2019 4:01 PM CDT [facility] NEUTROPHILS 87 % 10/23/2019 4:01 PM CDT [facility] LYMPHOCYTES 7 % 10/23/2019 4:01 PM CDT [facility] MONOCYTES 5 % 10/23/2019 4:01 PM CDT [facility] EOSINOPHILS 0 % 10/23/2019 4:01 PM CDT [facility] BASOPHILS 0 % 10/23/2019 4:01 PM CDT [facility] IMMATURE GRANULOCYTES 0 % 10/23/2019 4:01 PM CDT [facility] NEUTROPHIL ABSOLUTE 10.87(H) 1.90 - 7.00 K/uL 10/23/2019 4:01 PM CDT [facility] LYMPHOCYTE ABSOLUTE 0.88 0.70 - 4.50 K/uL 10/23/2019 4:01 PM CDT [facility] MONOCYTE ABSOLUTE 0.61 0.10 - 1.30 K/uL 10/23/2019 4:01 PM CDT [facility] EOSINOPHIL ABSOLUTE 0.02 0.00 - 0.70 K/uL 10/23/2019 4:01 PM CDT [facility] BASOPHILS ABSOLUTE 0.02 0.00 - 0.20 K/uL 10/23/2019 4:01 PM CDT [facility] IMMATURE GRANULOCYTES ABSOLUTE 0.04(H) 0.00 - 0.03 K/uL 10/23/2019 4:01 PM CDT [facility] Blood Venipuncture / Unknown 10/23/2019 3:45 PM CDT 10/23/2019 3:52 PM CDT Silas Frank MD HEMATOLOGY ORDERA BLES [facility]# [id number] 5 [facility] [address] [address] * POC US BILIARY (10/23/2019 1:47 PM CDT) Narrative ED POC US - 10/23/2019 1:47 PM CDT Silas Frank MD ? 10/23/2019 ??5:02 PM POC US BILIARY Date/Time: 10/23/2019 4:00 PM Performed by: Silas Frank MD Authorized by: Silas Frank MD Exam Type: ??Diagnostic Clinical Category: ??Symptom Based Initial or Repeat Exam: ??Initial Exam Indication(s) for Exam: ?? abdominal pain Views: ??Gallbladder Long Ruso: ??Adequate ??Gallbladder Short Ruso: ??Adequate Findings: ??Gallstone(s): ??Absent ??Gallbladder Wall: ??Not thickened Interpretation: ?? no significant biliary pathology identified Silas Frank MD NON LAB POC TESTS ED POC US [address] [place] [address], documented in this encounter Visit Diagnoses Diagnosis Upper abdominal pain, unspecified- Primary S/P appendectomy Other postprocedural status Leukocytosis, unspecified type History of lupus Personal history of other endocrine, metabolic, and immunity disorders documented in this encounter Care Teams Production Machine Operator Relationship Specialty Start Date End Date Brian Mon MD [address] [place] [address] PCP - General Internal Medicine 07/15/19 documented as of this encounter
--- OUTSIDE RECORDS SUMMARY | 2024-02-24 20:37 | XMS_ITS | Encounter Summary ---
Author Organization [facility] Address [address] [place] [address] Care Team Providers Care Photo Colorer Name Role Phone Brian Mon MD Primary Care Provider Encounter Details Date Type Department Care Team (Latest Contact Info) Description 05/11/2020 4:18 PM CDT - 05/11/2020 11:59 PM CDT Hospital Encounter [facility] Services [address] [facility] [address] [facility] [address] [place] [address] Leland Banuelos MD [facility] [address] [place] [address] Discharge Disposition: Home or Self Care Social [...] Procedure Name Priority Date/Time Associated Diagnosis Comments TESTOSTERONE FREE AND TOTAL Routine 05/11/2020 4:24 PM CDT Weight gain Fatigue, unspecified type MICROALBUMIN/CREATIN INE RATIO, RANDOM UR Routine 05/11/2020 4:24 PM CDT Lupoid nephritis Isolated non-nephrotic proteinuria Anxiety hyperventilation FOLATE, SERUM Routine 05/11/2020 4:24 PM CDT Fatigue, unspecified type IRON, TIBC, AND PERCENT SATURATION Routine 05/11/2020 4:24 PM CDT Fatigue, unspecified type CBC WITH DIFFERENTIAL Routine 05/11/2020 4:24 PM CDT Fatigue, unspecified type VITAMIN D 25 HYDROXY Routine 05/11/2020 4:24 PM CDT Fatigue, unspecified type PROLACTIN Routine 05/11/2020 4:24 PM CDT Weight gain Fatigue, unspecified type DHEA Routine 05/11/2020 4:24 PM CDT Weight gain Fatigue, unspecified type RETICULOCYTES Routine 05/11/2020 4:24 PM CDT Fatigue, unspecified type TSH Routine 05/11/2020 4:24 PM CDT Weight gain Fatigue, unspecified type FERRITIN Routine 05/11/2020 4:24 PM CDT Fatigue, unspecified type VITAMIN B12 LEVEL Routine 05/11/2020 4:2 4 PM CDT Fatigue, unspecified type BASIC METABOLIC PANEL Routine 05/11/2020 4:24 PM CDT Lupoid nephritis Isolated non-nephrotic proteinuria Anxiety hyperventilation documented in this encounter Results * DHEA (05/11/2020 4:24 PM CDT) DHEA <0.5 <13 ng/mL 05/17/2020 3:00 PM CDT [facility] Comment: ADDITIONAL INFORMATION This test was developed and its performance characteristics determined by [facility] in a manner consistent with CLIA requirements. This test has not been cleared or approved by the U.S. Food and Drug Administration. Test Performed by: [place] [address] Procedures Nurse: Dima Travis M.D. Ph.D.; CLIA# [id number] Blood Venipuncture / Unknown 05/11/2020 4:24 PM CDT 05/11/2020 4:24 PM CDT Lisette De Santiago NP CHEMISTRY ORDERABL ES [facility] * TESTOSTERONE FREE AND TOTAL (05/11/2020 4:24 PM CDT) ALBUMIN 4.5 3.5 - 5.2 g/dL 05/12/2020 3:02 AM CDT [facility] SEX HORMONE BINDING GLOBULIN 63.8 24.6 - 122.0 nmol/L 05/12/2020 3:02 AM CDT [facility] TESTOSTERONE <12.0 8.0 - 48.0 ng/dL 05/12/2020 3:02 AM CDT [facility] FREE TESTOSTERONE, CALCULATED 05/12/2020 3:02 AM CDT [facility] Comment:Unable to calculate because one or more components used in the equation are outside the reportable range. Blood Venipuncture / Unknown 05/11/2020 4:24 PM CDT 05/11/2020 4:24 PM CDT Lisette De Satniago NP CHEMISTRY ORDERABL ES [facility] CLIA# [id number] [address] [place] [address] * (ABNORMAL) PROLACTIN (05/11/2020 4:24 PM CDT) PROLACTIN 25.6(H) 3.0 - 18.6 ng/mL 05/11/2020 6:36 PM CDT [facility] Blood Venipuncture / Unknown 05/11/2020 4:24 PM CDT 05/11/2020 4:24 PM CDT Lisette De Santiago NP CHEMISTRY ORDERABL ES [facility] CLIA# [id number] [address] [place] [address] * (ABNORMAL) CBC WITH DIFFERENTIAL (05/11/2020 4:24 PM CDT) WBC 11.2(H) 4.5 - 10.5 K/uL 05/11/2020 5:44 PM CDT [facility] RBC 4.20 3.90 - 4.90 M/uL 05/11/2020 5:44 PM CDT [facility] HEMOGLOBIN 13.2 11.8 - 14.8 g/dL 05/11/2020 5:44 PM CDT [facility] HEMATOCRIT 38.8 35.5 - 44.0 % 05/11/2020 5:44 PM CDT [facility] MCV 92.4 82.0 - 99.0 fL 05/11/2020 5:44 PM CDT [facility] - [facility] MCH 31.6 27.8 - 34.5 pg 05/11/2020 5:44 PM CDT [facility] MCHC 34.1 32.5 - 35.5 g/dL 05/11/2020 5:44 PM CDT [facility] RDW 13.7 11.5 - 14.5 % 05/11/2020 5:44 PM CDT [facility] PLATELETS 310 160 - 420 K/uL 05/11/2020 5:44 PM CDT [facility] MPV 8.7 8.7 - 12.7 fL 05/11/2020 5:44 PM CDT [facility] NEUTROPHILS 82(H) 45 - 70 % 05/11/2020 5:44 PM CDT [facility] LYMPHOCYTES 12(L) 16 - 45 % 05/11/2020 5:44 PM CDT [facility] MONOCYTES 5 3 - 13 % 05/11/2020 5:44 PM CDT [facility] EOSINOPHILS 1 0 - 7 % 05/11/2020 5:44 PM CDT [facility] BASOPHILS 1 0 - 2 % 05/11/2020 5:44 PM CDT [facility] NEUTROPHIL ABSOLUTE 9.10(H) 1.90 - 7.00 K/uL 05/11/2020 5:44 PM CDT [facility] LYMPHOCYTE ABSOLUTE 1.40 0.70 - 4.50 K/uL 05/11/2020 5:44 PM CDT [facility] MONOCYTE ABSOLUTE 0.50 0.10 - 1.30 K/uL 05/11/2020 5:44 PM CDT [facility] EOSINOPHIL ABSOLUTE 0.10 0.00 - 0.70 K/uL 05/11/2020 5:44 PM CDT [facility] BASOPHILS ABSOLUTE 0.10 0.00 - 0.20 K/uL 05/11/2020 5:44 PM CDT [facility] Blood Venipuncture / Unknown 05/11/2020 4:24 PM CDT 05/11/2020 4:24 PM CDT Lisette De Santiago NP HEMATOLOGY ORDERAB LES Performing Organization Address City/[facility] Co de Phone Number [facility] CLIA# [id number] [address] [place] [address] * RETICULOCYTES (05/11/2020 4:24 PM CDT) RETICULOCYTES 1.6 0.4 - 2.0 % 05/11/2020 5:44 PM CDT [facility] IMMATURE RETIC FRACTION 0.4 % 05/11/2020 5:44 PM CDT [facility] RETICULOCYTE, ABSOLUTE 0.0689 0.0250 - 0.1480 10e6/uL 05/11/2020 5:44 PM CDT [facility] Blood Venipuncture / Unknown 05/11/2020 4:24 PM CDT 05/11/2020 4:24 PM CDT Lisette De Santiago NP HEMATOLOGY ORDERAB LES Performing Organization Address City/[facility] Co de Phone Number [id number] [address] [place] [address] * FOLATE, SERUM (05/11/2020 4:24 PM CDT) FOLATE, SERUM 17.8 4.6 - 34.8 ng/mL 05/11/2020 6:37 PM CDT [facility] Blood Venipuncture / Unknown 05/11/2020 4:24 PM CDT 05/11/2020 4:24 PM CDT Lisette De Santiago NP CHEMISTRY ORDERABL ES Performing Organization Address City/[facility]/ZIP Co de Phone Number [facility] [id number] [place] [address] * VITAMIN B12 LEVEL (05/11/2020 4:24 PM CDT) VITAMIN B12 658 232-1,245 pg/mL 05/11/2020 6:36 PM CDT [facility] Blood Venipuncture / Unknown 05/11/2020 4:24 PM CDT 05/11/2020 4:24 PM CDT Lisette De Santiago NP CHEMISTRY ORDERABL ES Performing Organization Address [facility]/ZIP Co de Phone Number [facility] [id number] [place] [address] * FERRITIN (05/11/2020 4:24 PM CDT) FERRITIN 17.8 13.0 - 150.0 ng/mL 05/11/2020 6:36 PM CDT [facility] Blood Venipuncture / Unknown 05/11/2020 4:24 PM CDT 05/11/2020 4:24 PM CDT Lisette De Santiago HANG GLIDING INSTRUCTOR CHEMISTRY ORDERABL ES Performing Organization Address City/[facility]/ZIP Co de Phone Number [facility] [id number] [place] [address] * (ABNORMAL) IRON, TIBC, AND PERCENT SATURATION (05/11/2020 4:24 PM CDT) IRON 54 37 - 145 ug/dL 05/11/2020 6:10 PM CDT [facility] TIBC 336 265 - 497 ug/dL 05/11/2020 6:10 PM CDT [facility] IRON % SATURATION 16(L) 20 - 55 % 05/11/2020 6:10 PM CDT [facility] Blood Venipuncture / Unknown 05/11/2020 4:24 PM CDT 05/11/2020 4:24 PM CDT Lisette De Santiago NP CHEMISTRY ORDERABL ES Performing Organization Address City/[facility] Co de Phone Number [facility] [id number] [address] [place] [address] * (ABNORMAL) VITAMIN D 25 HYDROXY (05/11/2020 4:24 PM CDT) VITAMIN D TOTAL (25OH) 21(L) 30 - 100 ng/mL 05/11/2020 6:36 PM CDT [facility] Blood Venipuncture / Unknown 05/11/2020 4:24 PM CDT 05/11/2020 4:24 PM CDT Narrative [facility] - 05/11/2020 6:36 PM CDT Interpretive Data Chart: Deficient: ? 0 - 20 ng/mL Insufficient: ?21 - 29 ng/mL Sufficient: ?30 - 100 ng/mL Increased Risk of Hypercalciuria: ??>100 ng/ml Toxic: ? >150 ng/ml Lisette De Santiago NP CHEMISTRY ORDERABL ES Performing Organization Address City/[facility] Co de Phone Number [facility] [id number] [address] [place] [address] * TSH (05/11/2020 4:24 PM CDT) Pathologist [facility] TSH 1.36 0.27 - 4.20 uIU/mL 05/11/2020 6:19 PM CDT [facility] Blood Venipuncture / Unknown 05/11/2020 4:24 PM CDT 05/11/2020 4:24 PM CDT Lisette De Santiago NP CHEMISTRY ORDERABL ES [facility] CLIA# [id number] [address] [place] [address] * (ABNORMAL) MICROALBUMIN/CREATININE RATIO, RANDOM UR (05/11/2020 4:24 PM CDT) [facility] MICROALBUMIN, URINE 6.3 mg/dL 05/11/2020 5:59 PM CDT [facility] CREATININE, URINE 94.2 29.0 - 226.0 mg/dL 05/11/2020 5:59 PM CDT [facility] Comment:Reference Range vari es with fluid intake and diet. MICROALBUMIN/C REAT RATIO, UR 66.9(H) <25.0 mg/g 05/11/2020 5:59 PM CDT [facility] Urine URINE SPECIMEN OBTAINED BY CLEAN CATCH PROCEDURE / Unknown Collection / Unknown 05/11/2020 4:24 PM CDT 05/11/2020 4:24 PM CDT Narrative [facility] - 05/11/2020 5:59 PM CDT Condition ? Microalbumin/Creat ratio Normal Males ? <17 Normal Females ? <25 Microalbuminuria Males ?17-299 Microalbuminuria Females ?25-299 Overt proteinuria ? >=300 Leland Banuelos MD URINE ORDERAB LES [facility] CLIA# [id number] [address] [place] [address] * BASIC METABOLIC PANEL (05/11/2020 4:24 PM CDT) Pathologist [facility] SODIUM 138 136 - 145 mmol/L 05/11/2020 6:08 PM CDT [facility] POTASSIUM 3.7 3.4 - 5.1 mmol/L 05/11/2020 6:08 PM CDT [facility] CHLORIDE 102 98 - 107 mmol/L 05/11/2020 6:08 PM CDT [facility] CO2 24 22 - 29 mmol/L 05/11/2020 6:08 PM CDT [facility] CALCIUM 9.5 8.6 - 10.4 mg/dL 05/11/2020 6:08 PM CDT [facility] BUN 14 6 - 20 mg/dL 05/11/2020 6:08 PM CDT [facility] CREATININE 0.62 0.51 - 0.95 mg/dL 05/11/2020 6:08 PM CDT [facility] GLUCOSE 85 74 - 99 mg/dL 05/11/2020 6:08 PM CDT [facility] GFR >60 >=60 mL/min/1.7 3 sq meter 05/11/2020 6:08 PM CDT [facility] Comment: eGFR has not been [...] GFR, >60 >=60 mL/min/1.7 3 sq meter 05/11/2020 6:08 PM CDT [facility] SERVICES [facility] ANION GAP 12 8 - 16 mmol/L 05/11/2020 6:08 PM CDT [facility] Blood Venipuncture / Unknown 05/11/2020 4:24 PM CDT 05/11/2020 4:24 PM CDT Leland Banuelos MD CHEMISTRY ORD ERABLES [facility] CLIA# [id number] [address] [place] [address] documented in this encounter Visit Diagnoses Diagnosis Lupoid nephritis- Primary Systemic lupus erythematosus Isolated non-nephrotic proteinuria Proteinuria Anxiety hyperventilation Respiratory malfunction arising from mental factors Weight gain Abnormal weight gain Fatigue, unspecified type documented in this encounter Care Teams Photo Colorer Relationship Specialty Start Date End Date Brian Mon MD [address] [place] [phone] PCP - General Internal Medicine 07/15/19 documented as of this encounter
--- OUTSIDE RECORDS SUMMARY | 2024-02-24 20:37 | XMS_ITS | Encounter Summary ---
Author Organization [facility] Address [address] [place] [address] Care Team Providers Care Bingo Checker Name Role Phone Brian Mon MD Primary Care Provider Reason for Visit * Auth/Cert Specialty Diagnoses / Procedures Referred By Jud freeman Referred To Contact Internal Medicine [facility] Care [address] [place] [address] Referral ID Status Reason Start Date Expiration Date Visits Re quested Visits Authorized [id number] 1 1 Encounter Details Date Type Department Care Team (Latest Contact Info) Description 07/15/2019 2:15 PM CDT Procedure visit [address] [address] SOB (shortness of breath) Social History Tobacco Use Types Packs/Day Years [...] Miscellaneous Notes * Result Encounter Note - Mary Hernandez PA-C - 07/17/2019 8:27 AM CDT I informed patient of negative COVID-19 test results. We discussed possibility of false negatives with this test, so I recommended continued social distancing and stressed the importance of staying home and at least 10 feet away from others until their fever has resolved AND their symptoms are significantly improved. If they develop new or worsening symptoms, they should contact their primary care physician or go to the ER for further evaluation. The patient voiced understanding and agreement. Pt has pcp: Dr Mon Pt is feeling better CF * Result Encounter Note - Mary Hernandez PA-C - 07/17/2019 8:19 AM CDT LMTCOB 819am CF documented in this encounter Plan of Treatment Not on file documented as of this encounter Procedures Procedure Name Priority Date/Time Associated Diagnosis Comments 2019 NOVEL CORONAVIRUS (COVID-19) PCR DETECTION Routine 07/15/2019 2:56 PM CDT SOB (shortness of breath) documented in this encounter Results * 2019 NOVEL CORONAVIRUS (COVID-19) PCR DETECTION (07/15/2019 2:56 PM CDT) COVID-19 PCR Not Detected Not Detected 07/17/19 20 7:43 AM CDT [facility] --- [facility] PERFORMING LAB [facility] 07/17/2019 7:43 AM CDT [facility] Upper Respiratory ENTIRE OROPHARYNX / Unknown Collection / Unknown 07/15/2019 2:56 PM CDT 07/15/2019 8:07 PM CDT Tran Jackson DO MICROBIOLOGY - GEN ERAL ORDERABLES [facility] --- [facility] CLIA# [id number] [address] [address] [facility]# [id number] [address] [address] documented in this encounter Visit Diagnoses Diagnosis SOB (shortness of breath) Shortness of breath documented in this encounter Care Teams Bingo Checker Relationship Specialty Start Date End Date Brian Mon MD [address] [place] [address] PCP - General Internal Medicine 07/15/19 documented as of this encounter
--- OUTSIDE RECORDS SUMMARY | 2024-02-24 20:37 | XMS_ITS | Encounter Summary ---
Author Organization [facility] Address [address] [place]: Epic Prelude ADT [place] [address] Care Team Providers Care Head Grease Maker Name Role Phone Brian Mon MD Primary Care Provider Encounter Details Date Type Department Care Team (Latest Contact Info) Description 06/04/2020 Travel Social History Tobacco Use Types Packs/Day [...] filedocumented in this encounter Care Teams Head Grease Maker Relationship Specialty Start Date End Date Brian Mon MD [address] [place] [address] PCP - General Internal Medicine 07/15/19 documented as of this encounter
--- OUTSIDE RECORDS SUMMARY | 2024-02-24 20:37 | XMS_ITS | Encounter Summary ---
Author Organization [facility] Address [address] [place] [address] Care Team Providers Care Tobacco Curer Name Role Phone Brian Mon MD Primary Care Provider Reason for Visit * Reason Onset Date Comments Results 08/10/2019 Encounter Details Date Type Department Care Team (Late st Contact Info) Description 08/10/2019 Nurse Triage [facility] Nurse director semiconductor [address] [place] [address] Zo Catherine RN Social History Tobacco Use Types Packs/Day [...] encounter Miscellaneous Notes * Telephone Encounter - Zo Catherine RN - 08/10/2019 6:11 PM CDT Reason for Disposition ??? Documentation only? Protocols used: NAY NOC P ANSWERING SERVICE Pt was seen in ER earlier today and had a rapid covid test. Missed call from the ER with the results. Transferred to [facility]. * Telephone Encounter - Zo Catherine RN - 08/10/2019 5:49 PM CDT Regarding: covid results ----- Message from Zo Catherine RN sent at 08/10/2019 5:49 PM CDT ----- Patient's address on file: [address] [place] [address] Patient's current location: Same as above documented in this encounter Plan of Treatment Not on file documented as of this encounter Visit Diagnoses Not on filedocumented in this encounter Additional Health Concerns Infection Onset Date Last Indicated Resolved Time R/O COVID-19 08/10/2019 08/10/2019 08/10/2019 4:24 PM CDT documented as of this encounter Care Teams Tobacco Curer Relationship Specialty Start Date End Date Brian Mon MD [address] [place] [phone] PCP - General Internal Medicine 07/15/19 documented as of this encounter
--- OUTSIDE RECORDS SUMMARY | 2024-02-24 20:37 | XMS_ITS | Encounter Summary ---
Author Organization [facility] Address [address] [place] [address] Care Team Providers Care Baggage Clerk Name Role Phone Brian Mon MD Primary Care Provider Reason for Visit * Reason Comments Cough c/o cough, fever, di arrhea for 2 months Encounter Details Date Type Department Care Team (Late st Contact Info) Description 07/15/2019 Chart Note [facility] [address] [place] [address] Catherine Jacob RN Cough (c/o cough, fever, diarrhea for 2 months) Social History Tobacco Use Types Packs/Day Years [...] as of this encounter Progress Notes * Catherine Jacob RN - 07/15/2019 3:04 PM CDT Patient presents for prescheduled COVID testing. The specimen was obtained. Current Vital Signs: SaO2 98 HR 90 BP 103/64 Temp 98.9 RR 18 The patient appears alert, orientated and in no acute distress. documented in this encounter Plan of Treatment Not on file documented as of this encounter Visit Diagnoses Not on filedocumented in this encounter Additional Health Concerns Infection Onset Date Last Indicated Resolved Time R/O COVID-19 07/15/2019 07/15/2019 07/17/2019 7:43 AM CDT documented as of this encounter Care Teams Baggage Clerk Relationship Specialty Start Date End Date Brian Mon MD [address] [place] [address] PCP - General Internal Medicine 07/15/19 documented as of this encounter
--- OUTSIDE RECORDS SUMMARY | 2024-02-24 20:37 | XMS_ITS | Encounter Summary ---
Author Organization [facility] Address [address] [place] [address] Care Team Providers Care Printer Helper Name Role Phone Brian Mon MD [...] documented as of this encounter Care Teams Printer Helper Relationship Specialty Start Date End Date Brian Mon MD [address] [place] [id number] PCP - General Internal Medicine 07/15/19 documented as of this encounter
--- OUTSIDE RECORDS SUMMARY | 2024-02-24 20:37 | XMS_ITS | Encounter Summary ---
Author Organization [facility] Address [address] [place] [address] Care Team Providers Care Picker/Puller Name Role Phone Brian Mon MD Primary Care Provider Encounter Details Date Type Department Care Team (Late st Contact Info) Description 05/29/2019 Digital Self COVID-1 9 Screening [facility] ABSTRACTION [...] documented as of this encounter Care Teams Picker/Puller Relationship Specialty Start Date End Date Brian Mon MD [address] [place] [id number] PCP - General Internal Medicine 07/15/19 documented as of this encounter
--- OUTSIDE RECORDS SUMMARY | 2024-02-24 20:37 | XMS_ITS | Encounter Summary ---
Author Organization [facility] Address [address] [place] [address] Care Team Providers Care Hotel General Manager Name Role Phone Brian Mon MD Primary Care Provider Reason for Visit * Reason Onset Date Comments Appointment Verification 07/15/2019 Appt ve rification Encounter Details Date Type Department Care Team (Late st Contact Info) Description 07/15/2019 Nurse Triage [facility] Nurse java solutions architect [address] [place] [address] Azul Murry Social History Tobacco Use Types Packs/Day Years [...] encounter Miscellaneous Notes * Telephone Encounter - Azul Murry - 07/15/2019 2:17 PM CDT Reason for Disposition ??? Patient identity verified, patient advised of date and time of appt? Protocols used: NAY NOC P ANSWERING SERVICE Appt verification, ID verified, INFO provided. * Telephone Encounter - Azul Murry - 07/15/2019 2:16 PM CDT Regarding: Appt verification ----- Message from Azul Murry sent at 07/15/2019 2:16 PM CDT ----- Patient's [address] on [address]: [address] [place] [id number] Patient's current location: Same as above documented in this encounter Plan of Treatment Not on file documented as of this encounter Visit Diagnoses Not on filedocumented in this encounter Care Teams Hotel General Manager Relationship Specialty Start Date End Date Brian Mon MD [address] [place] [phone] PCP - General Internal Medicine 07/15/19 documented as of this encounter
--- OUTSIDE RECORDS SUMMARY | 2024-02-24 20:37 | XMS_ITS | Encounter Summary ---
Author [facility] Address [address] [place] [address] Care Team Providers Care High Speed Operator Name Role Phone Huseyin Dangelo MD Primary Care Provider [phone] Encounter Details Date Type Department Care Team (Late st Contact Info) Description 07/12/2019 Nurse Triage [facility] Nurse internal controls consultant [address] [place] [address] Shima Baird, RN Social History [...] filedocumented in this encounter Care Teams High Speed Operator Relationship Specialty Start Date End Date Huseyin Dangelo MD PCP - General 09/29/17 07/14/19 documented as of this encounter
--- OUTSIDE RECORDS SUMMARY | 2024-02-24 20:37 | XMS_ITS | Encounter Summary ---
Author Organization [facility] Address [address] [place] [address] Care Team Providers Care Custom Studio Coordinator Name Role Phone Brian Mon MD Primary Care Provider Reason for Visit * Reason Comments Nausea Pt to the ER today w ith complaints of cough, body aches, fever, nausea, vomiting and sore throat for the past 4 days. Pt reports fevers at home she has been treating with tylenol at home. Pt reports hx of lupus and working with the public and is worried about potentially having COVID19. Pt currently oriented x4 at time of triage denying any cp or sob. * Auth/Cert Specialty Diagnoses / Procedures Referred By Jud freeman Referred To Contact Emergency Medicine [facility] [address] Emergency Department [id number] [place] [phone] Referral ID Status Reason Start Date Expiration Date Visits Re quested Visits Authorized [id number] 1 1 Encounter Details Date Type Department Care Team (Late st Contact Info) Description 08/10/2019 2:51 PM CDT - 08/10/2019 4:23 PM CDT Emergency [facility] Emergency Department [id number] [place] [phone] [place] [address] [place] [address] SLE exacerbation (Primary Dx) Discharge Disposition: Home or Self [...] Reading Time Taken Comments Blood Pressure 136/97 08/10/2019 2:32 PM CDT Pulse - - Temperature 37.1 ??C (98.7 ??F) 08/10/2019 2:32 PM CD T Respiratory Rate 18 08/10/2019 2:32 PM CDT Oxygen Saturation 99% 08/10/2019 2:32 PM CDT Inhaled Oxygen Concentration - - Weight 71.7 kg (158 lb) 08/10/2019 2:32 PM CDT Height 157.5 cm (5' 2 ) 08/10/2019 2:32 PM CDT Body Mass Index 28.9 08/10/2019 2:32 PM CDT documented in this encounter Discharge Instructions * Discharge Instructions* Darwin Townsend MD - 08/10/2019 4:14 PM CDT Discharge instructions for viral syndrome, influenza, or possible COVID-19 You have been diagnosed with a viral syndrome, which may include symptoms such as muscle aches, fevers, chills, runny nose, cough, sneezing, sore throat, vomiting, or diarrhea. Two potential viral infections are the common cold or influenza. Another potential virus you may have is SARS-CoV-2, the virus that causes COVID-19, also known as the novel coronavirus. This virus spreads from person to person through droplets in the air from coughing or sneezing. Most patients with COVID -19 have mild symptoms and recover on their own. As of today's emergency department visit, you are well enough to safely go home. COVID-19 testing is not routinely performed on most people with mild symptoms who are being discharged from the emergency department or [facility]. If you received any testing, you will be notified of the results, if they are positive. If your results are negative, you will not receive any results. It may take up to 7 days for you to receive your COVID-19 results. You will also receive information about how to follow up with a primary care physician, if you do not currently have one. General instructions for you to follow at home: Self-quarantine for 14 days Rest Stay hydrated and drink plenty of water Take your temperature with a thermometer twice a day Take acetaminophen or ibuprofen for fever Take over the counter cough medicine as needed Only leave your house for medical care Do not go to work, school, or visit any public areas Do not take public transportation Do not have visitors in your home Practice social distancing and stay at least 6 feet from others Avoid contact with other members of your household or pets and stay in a separate room as much as possible Wear a facemask when you are around others in your house Do not share household items with other members of your family such as dishes, drinking glasses, eating utensils, towels, etc. Clean high touch surfaces daily such as phones, remote controls, sinks, countertops, toilets, doorknobs, etc. with household cage/vault supervisor or disinfectant wipes Cover your mouth and nose with a tissue or sleeve (not your hands) when coughing or sneezing Avoid touching your mouth, nose, and eyes Wash your hands with soap and water for at least 20 seconds to avoid spreading the virus to others.This includes after coughing, sneezing, going to the bathroom, before eating, preparing food etc. If soap and water are not available, you can use alcohol-based hand boring machine feeder that contains at least 60% alcohol You may need to return to the emergency department if you observe any of the following symptoms: Worsening shortness of breath or difficulty breathing Worsening coughing Worsening or persistent fever Severe vomiting or diarrhea Severe weakness Confusion Persistent chest pain If you need to call 911, return to the ED, or go to your doctor's office for this illness, please do the following: Place a mask on yourself before the ambulance arrives If possible, come to the door of your residence to prevent ambulance personnel from entering Call the emergency department or doctor's office ahead of time and tell them you are coming Place a mask on yourself before you enter the building Notify the sulfuric acid plant supervisor immediately of your symptoms Stay 6 feet away from other patients If your COVID-19 test is positive, please follow the precautions below: Follow all the instructions listed above Self-quarantine for at least 14 days after your first day of symptoms and several more after that if you are still sick If you become sicker, have difficulty breathing, chest pain, you are unable to eat or drink enough,have severe vomiting, diarrhea or weakness, you may need to return to the emergency department or contact your primary care provider for re-evaluation Contact your primary care provider to find out when it is safe to discontinue your self-quarantine and resume your normal activities If you are COVID-19 positive and need to seek care at a healthcare facility: Put on a facemask before you enter the facility. This will prevent other patients or coworkers getting infected or exposed. If you need to call 911, alert the dispatcher on the 911 call about your condition, and put on a facemask before the ambulance arrives If possible, come to door of your residence to prevent ambulance personnel from entering If you are known to be COVID-19 positive and need to return to the ED, please contact the ED prior to your arrival so that the ED staff can facilitate your arrival If you need follow up with a [facility] primary care provider, we encourage you to contact your local [facility] clinic via [employer]. You will be able to find a convenient clinic location and schedule your appointment. Your care team at the [facility] Emergency Department seeks to provide excellent, safe and quality care.We are committed to caring for our community during this COVID-19 outbreak and thank you for your help by closely managing your care at home. If you develop any of the worsening symptoms listed previously, please call 911 or return to the emergency department. You can obtain additional information at the following sources: [place] Centers for Disease Control www.cdc.gov World Health Organization www.who.int [facility]'s website www.[employer]/service/covid-19 * Attachments The following attachments cannot be sent through Care Everywhere. * Lupus (Ivorian) * Viral Infections (Ivorian) documented in this encounter Medications at Time of Discharge Medication Sig Dispensed Refills Start Date End Date omeprazole (PriLOSEC) 20 mg Capsule, Delayed Release(E.C.) Take 20 mg by mouth daily. hydroxychloroquine (PLAQUENIL) 200 mg tablet Take 200 mg by mouth daily. valACYclovir (VALTREX) 1 gram tablet Take 1,000 mg by mouth 2 times daily. 04/27/2020 documented as of this encounter ED Notes * Annamarie Pimentel RN - 08/10/2019 4:09 PM CDT XR at bedside. * Annamarie Pimentel RN - 08/10/2019 4:07 PM CDT Patient requesting to leave prior to XR and have provider update her at home once results were back. Patient educated that if she left prior to receiving her CXR, she would be leaving AMA as staff would not be able to complete the proper care. Patient agreeable to stay for CXR, but requesting stafftake her IV out. IV removed. Provider updated. * Annamarie Pimentel RN - 08/10/2019 3:35 PM CDT Per lab, DNA AUTOABS can be drawn off an existing specimen they have. * Annamarie Pimentel RN - 08/10/2019 3:16 PM CDT Provider at bedside. * Ernie Mitchell RN - 08/10/2019 2:39 PM CDT Emergency Department Adult Female Abdominal Pain Protocol [facility] ORDERS ARE ENTERED PER PROTOCOL Enter the protocol in the patient's electronic health record using smartphrase: .edadultfemaleabdominalpainprotocol Nursing Orders: o Insert peripheral IV (excessive vomiting or diarrhea) Laboratory Orders: o CBC with diff ([id number]) o Lipase o CMP (LAB17) o If female of childbearing age: HCG Qualitative urine (LUD146) if waiting room wait time is 30 minutes or more or Qualitative Serum preferred o Urinalysis with Reflex Culture (SON4256) o Serum HCG (if knowingly ) (JJW193) Quanatative o Obtain serum lipase (LAB99) if upper abdominal pain o Draw and send extra tubes to lab (ED hold) ([id number]) Diagnostic Test Orders: o EKG Includes indication for test Medication Orders: o Sodium chloride 0.9% (normal saline) flush 5mL every 8 hours o Sodium chloride 0.9% (normal saline) flush 5mL PRN for saline lock or medication administration Additional Instructions: o Keep NPO until otherwise ordered by attending physician Initiating Department(s): Date: 09/2017 Department: Adult Emergency Department Approved by: Armando Millan MD, Director Food And Beverage, Emergency Medicine Date: 10-27-17 Approved by: Flaco Coelho, Business Risk Analyst, Emergency Services and Brine Mixer Operator Date: 10-27-17 Approved by: Andrey Lopez MD, Emergency Medicine Date: 07-01-18 Approved by: Medical Executive Committee Date: 11-13-17 Approved by: Pharmacy & Therapeutics Committee Date: 11-08-17 * Ernie Mitchell RN - 08/10/2019 2:33 PM CDT Pt to the ER today with complaints of cough, body aches, fever, nausea, vomiting and sore throat for the past 4 days. Pt reports fevers at home she has been treating with tylenol at home. Pt reports hx of lupus and working with the public and is worried about potentially having COVID19. Pt currently oriented x4 at time of triage denying any cp or sob. * Darwin Townsend MD - 08/10/2019 2:29 PM CDT HISTORY OF PRESENT ILLNESS Carito Rausch, a 29 y.o. female presents to the ED with a Chief Complaint of Nausea Subjective 29 yo female with lupus presents with about a month of multiple complaints and symptoms. I just don't feel well. She complains of subjective fevers and chills, as well as feeling achy all over. Complains of diffuse pain in her muscles and joints. She has felt increasingly bad over the past week. Also with intermittent rhinorrhea, congestion, sore throat, cough, N/V/D. Taking Tylenol with slight improvement in her discomfort. She has tested negative for COVID-19 multiple times over the past month. She denies any sick contacts or recent travel. She is concerned her lupus may be acting up. Currently on prednisone and hydroxychloroquine. REVIEW OF SYSTEMS Review of Systems Constitutional: Positive for chills, fatigue and fever. HENT: Positive for congestion, rhinorrhea and sore throat. Eyes: Negative for photophobia, discharge, redness and visual disturbance. Respiratory: Positive for cough. Negative for shortness of breath. Cardiovascular: Positive for chest pain. Negative for palpitations. Gastrointestinal: Positive for blood in stool, nausea and vomiting. Negative for abdominal pain anddiarrhea. Genitourinary: Negative for dysuria and hematuria. Musculoskeletal: Positive for arthralgias, back pain and myalgias. Skin: Negative for rash and wound. Neurological: Positive for headaches. Negative for dizziness and light-headedness. Psychiatric/Behavioral: Negative for confusion. The patient is not nervous/anxious. All other systems reviewed and are negative. PAST MEDICAL HISTORY REVIEWED MEDICAL: Patient has a past medical history of Anxiety, Connective tissue disease, Depression, Fibromyalgia,HTN (hypertension), and Lupus. She also has no past medical history of Arthritis, Asthma, Atrial fibrillation, Breast cancer, CAD (coronary artery disease), CHF (congestive heart failure), Chronic hepatic failure, Clostridium difficile enterocolitis, COPD (chronic obstructive pulmonary disease), CRI (chronic renal insufficiency), CVD (cerebrovascular disease), Dementia, Diabetes mellitus, GERD (gastroesophageal reflux disease), Headache, Hemorrhagic diathesis, Human immunodeficiency virus (HIV)disease, Hyperlipidemia, Hyperthyroidism, Hypothyroidism, IBS (irritable bowel syndrome), [...] not on file. SOCIAL: reports that she quit smoking about 20 months ago. Her smoking use included cigarettes. She smoked 0.25 packs per day. She has never used smokeless tobacco. She reports current alcohol use. She reports current drug use. Drugs: Marijuana and Cocaine. No history on file. Social History Other Topics Concern ??? Not on file PROBLEM LIST: Patient has Myalgia, unspecified site; Arthralgia; Weakness; and Lupus on their problem list. ALLERGIES Methylprednisolone HOME MEDICATIONS Discharge Medication List as of 08/10/2019 4:14 PM CONTINUE these medications which have NOT [...] 1,000 mg by mouth 2 times daily. Objective PHYSICAL EXAM INITIAL VS BP: (!) 136/97 (08/10/19 143), Heart Rate: 72 bpm (08/10/191431), Resp: 18 (08/10/191431), Pulse: (not recorded), Temp: 98.7 ??F (37.1 ??C) (08/10/191431), Temp src: Oral (08/10/191431), SpO2: 99 % (08/10/191431), Height: 5' 2 (157.5 cm) (08/10/191431), Weight: 71.7 kg (158 lb) (08/10/19 143), BMI (Calculated): 28.89 (08/10/191431) No LMP recorded. Physical Exam Vitals signs and nursing note reviewed. Constitutional: General: She is not in acute distress. Appearance: She is not diaphoretic. HENT: Head: Normocephalic and atraumatic. Mouth/Throat: Mouth: Mucous membranes are moist. Pharynx: Oropharynx is clear. Eyes: General: No scleral icterus. Conjunctiva/sclera: Conjunctivae normal. Neck: Musculoskeletal: Normal range [...] motion. General: No tenderness. Right lower leg: No edema. Left lower leg: No edema. Skin: General: Skin is warm and dry. Neurological: General: No focal deficit present. Mental Status: She is alert and oriented to person, place, and time. Mental status is at baseline. Psychiatric: Mood and Affect: Mood normal. Behavior: Behavior normal. DIAGNOSTICS LAB: CBC WITH DIFFERENTIAL - Abnormal Result Value WBC 9.5 RBC 4.13 HEMOGLOBIN 11.8 HEMATOCRIT 36.1 MCV 87.4 MCH 28.7 MCHC 32.8 RDW 14.9 (*) PLATELETS 370 MPV 7.5 (*) NEUTROPHILS 86 (*) LYMPHOCYTES 9 (*) MONOCYTES 5 EOSINOPHILS 0 BASOPHILS 0 NEUTROPHIL ABSOLUTE 8.20 (*) LYMPHOCYTE ABSOLUTE 0.80 MONOCYTE ABSOLUTE 0.40 EOSINOPHIL ABSOLUTE 0.00 BASOPHILS ABSOLUTE 0.00 COMPREHENSIVE METABOLIC PANEL - Abnormal SODIUM 139 POTASSIUM 4.1 CHLORIDE 102 CO2 23 CALCIUM 9.6 BUN 14 CREATININE 0.67 GLUCOSE 107 (*) TOTAL PROTEIN 7.6 ALBUMIN 4.3 BILIRUBIN TOTAL 0.2 ALKALINE PHOSPHATASE 46 AST 12 ALT 10 GFR >60 GFR, >60 ANION GAP 14 URINALYSIS WITH REFLEX CULTURE - Abnormal COLOR UA Yellow CLARITY UA Slightly Cloudy (*) SPECIFIC GRAVITY UA 1.024 PH UA 7.0 LEUKOCYTE ESTERASE UA Negative NITRITE UA Negative PROTEIN UA 3+ (*) GLUCOSE UA Negative KETONES UA Negative UROBILINOGEN UA Normal BILIRUBIN UA Negative BLOOD UA Negative WBC UA 0-2 RBC UA 0-2 BACTERIA UA 1+ (*) EPITHELIAL CELLS, URINE 11-25 (*) HYALINE CAST None Seen Ascorbic Acid UA Negative HCG QUALITATIVE, BLOOD - Normal HCG QUAL, BLOOD Negative DNA AUTOABS DOUBLE STRANDED RADIOLOGY: No orders to display XR CHEST PA OR AP 1 VW EKG: Pulse Ox Interpretation: Saturation: (%) 99 Oxygen Delivery: Room air Interpretation: No hypoxia at this time. PROCEDURES Procedures MEDICAL DECISION MAKING AND PLAN OF CARE ED Course as of Aug 12 1757 Sun Aug 10, 2019 1606 Per RN, patient would like to be discharged home early and would like to be notified of results over the phone. [CM] ED Course User Index [CM] Rayna Magana Scribe MDM Summary Statement: Well-appearing and without signs of bacteremia or sepsis. ED workup otherwise NAD. May be having a lupus flare. Patient instructed to call her PCP for F/U. Stable for discharge home, patient understands to return for any worsening symptoms. Diagnostic Considerations: As above. I have reviewed previous: notes and labs I have reviewed current: labs and imaging I have reviewed nursing notes related to past medical history, social history, and review of systems and agree, unless otherwise noted. Discharge Medication List as of 08/10/2019 4:14 PM CONTINUE these medications which have NOT [...] 1,000 mg by mouth 2 times daily. LAST VS BP: (!) 136/97 (08/10/19 143), Heart Rate: 72 bpm (08/10/19 143), Resp: 18 (08/10/19 143), Pulse: (not recorded), Temp: 98.7 ??F (37.1 ??C) (08/10/19 143), Temp src: Oral (08/10/191431), SpO2: 99 % (08/10/191431) CLINICAL IMPRESSION Final diagnoses: [M32.9] SLE exacerbation (Primary) DISPOSITION, EDUCATION AND MEDICATION RECONCILIATION Medications reconciled. See after visit summary for patient education on discharged patients. ED Disposition ED Disposition Condition User Date/Time Comment Discharge Stable Darwin Townsend MD Sun Aug 10, 2019 4:13 PM ATTESTATION STATEMENTS This note is prepared by Rayna Magana acting as a scribe for Darwin Townsend MD The scribe's documentation has been prepared under my direction and personally reviewed by me in its entirety. I confirm that the note above accurately reflects all work, treatment, procedures, and medical decision making performed by me. Darwin Townsend M.D. documented in this encounter Plan of Treatment Not on file documented as of this encounter Procedures Procedure Name Priority Date/Time Associated Diagnosis Comments XR CHEST PA OR AP 1 VW Stat 0 4:14 PM CDT RESPIRATORY PATHOGEN PCR PANEL Stat 08/10/2019 3:14 PM CDT 2019 NOVEL CORONAVIRUS (COVID-19) PCR DETECTION Stat 08/10/2019 3:14 PM CDT EXTRA TUBE Stat 08/10/2019 3:14 PM CDT EXTRA TUBE (URINE CONNER) Stat 08/10/2019 3:14 PM CDT URINALYSIS WITH REFLEX CULTURE Stat 08/10/2019 3:14 PM CDT CBC WITH DIFFERENTIAL Stat 08/10/2019 2:45 PM CDT COMPREHENSIVE METABOLIC PANEL Stat 08/10/2019 2:45 PM CDT HCG QUALITATIVE, SERUM Stat 0 2:45 PM CDT DNA AUTOABS DOUBLE STRANDED Stat 08/10/2019 2:45 PM CDT documented in this encounter Results * XR CHEST PA OR AP 1 VW (08/10/2019 4:14 PM CDT) Anatomical Region Laterality Modality Chest Computed Radiogr aphy 08/10/2019 4:15 PM CDT Narrative 08/10/2019 4:26 PM CDT PORTABLE CHEST 1608 HOURS DATE: 08/10/2019 4:14 PM HISTORY: Cough. FINDINGS: The lungs are clear and well-expanded. Heart size and pulmonary vascularity are are normal. There is no pleural effusion or pneumothorax. DICTATION LOCATION: [address] Procedure Note Dima Enamorado MD - 08/10/2019 PORTABLE CHEST 1608 HOURS DATE: 08/10/2019 4:14 PM HISTORY: Cough. FINDINGS: The lungs are clear and well-expanded. Heart size and pulmonary vascularity are are normal. There is no pleural effusion or pneumothorax. DICTATION LOCATION: Location [address] [place] [address] Darwin Townsend MD DIAGNOSTIC IMAGING O RDERABLES * RESPIRATORY PATHOGEN PCR PANEL (08/10/2019 3:14 PM CDT) Respiratory Pathogen PCR Panel NOT DETECTED No respiratory pathogen nucleic acids detected. 08/10/2019 4:48 PM CDT [facility] LABORATORY SERVICES [facility] Upper Respiratory ENTIRE NASOPHARYNX / Unknown Collection / Unknown 08/10/2019 3:14 PM CDT 08/10/2019 3:22 PM CDT Narrative [facility] - 08/10/2019 4:48 PM CDT The Film Array Respiratory Panel is a multiplex nucleic acid detection test for 20 targets. Viruses: Adenovirus Coronavirus HKU1, NL63, 229E, and OC43 Influenza A with the following subtypes: H1, H1-2009, and H3 Influenza B Human Metapneumovirus Parainfluenza virus 1, 2, 3, and 4 Respiratory Syncytial virus (RSV) Rhinovirus/Enterovirus (cannot differentiate due to genetic similarities) Bacteria: Bordetella pertussis Chlamydophila pneumoniae Mycoplasma pneumoniae Darwin Townsend MD MICROBIOLOGY - GENER AL ORDERABLES Performing Organization Address [facility] Co de Phone Number [facility]# [id number] [place] [address] * 2019 NOVEL CORONAVIRUS (COVID-19) PCR DETECTION (08/10/2019 3:14 PM CDT) Pathologist [facility] COVID-19 PCR NOT DETECTED Not Detected 08/10/19 20 4:24 PM CDT [facility] PERFORMING LAB [facility] 08/10/2019 4:24 PM CDT [facility] Upper Respiratory ENTIRE NASOPHARYNX / Unknown Collection / Unknown 08/10/2019 3:14 PM CDT 08/10/2019 3:21 PM CDT Narrative [facility] - 08/10/2019 4:24 PM CDT This test has been authorized by the FDA under an Emergency Use Authorization for use by authorized laboratories.?? This test has been validated in accordance with the FDA's guidance regarding Coronavirus Disease-2019 testing.?? Optimum specimen types and timing for peak viral levels during infection have not been determined.?? A negative RT-PCR result does not rule out infection with the 2019-Novel Coronavirus. Darwin Townsend MD MICROBIOLOGY - GENER AL ORDERABLES Performing Organization Address [facility]/ZIP Co de Phone Number [facility]# [id number] [place] [address] * EXTRA TUBE (URINE CONNER) (08/10/2019 3:14 PM CDT) Urine URINE SPECIMEN OBTAINED BY CLEAN CATCH PROCEDURE / Unknown Collection / Unknown 08/10/2019 3:14 PM CDT 08/10/2019 3:21 PM CDT Darwin Townsend MD URINE ORDERABLES [facility] CLIA# [id number] [place] [address] * (ABNORMAL) URINALYSIS WITH REFLEX CULTURE (08/10/2019 3:14 PM CDT) COLOR UA Yellow Pale to Dark Yellow 08/10/2019 3:38 PM CDT [facility] CLARITY UA Slightly Cloudy(A) Clear 08/10/2019 3:38 PM CDT [facility] SPECIFIC GRAVITY UA 1.024 1.003 - 1.035 08/10/2019 3:38 PM CDT [facility] PH UA 7.0 5.0 - 8.0 08/10/2019 3:38 PM CDT [facility] LEUKOCYTE ESTERASE UA Negative Negative 08/10/2019 3:38 PM CDT [facility] NITRITE UA Negative Negative 08/10/2019 3:38 PM CDT [facility] PROTEIN UA 3+(A) Negative 08/10/2019 3:38 PM CDT [facility] GLUCOSE UA Negative Negative 08/10/2019 3:38 PM CDT [facility] KETONES UA Negative Negative 08/10/2019 3:38 PM CDT [facility] UROBILINOGEN UA Normal <2.0 mg/dL 0 3:38 PM CDT [facility] BILIRUBIN UA Negative Negative 08/10/2019 3:38 PM CDT [facility] BLOOD UA Negative Negative 08/10/2019 3:38 PM CDT [facility] WBC UA 0-2 0 - 2 /hpf 08/10/2019 3:38 PM CDT [facility] RBC UA 0-2 0 - 2 /hpf 08/10/2019 3:38 PM CDT [facility] BACTERIA UA 1+(A) Negative /hpf 08/10/2019 3:38 PM CDT [facility] EPITHELIAL CELLS, URINE 11-25(A) 0 - 5 /hpf 08/10/2019 3:38 PM CDT [facility] HYALINE CAST None Seen None Seen, 0-2 /lpf 08/10/2019 3:38 PM CDT [facility] Ascorbic Acid UA Negative Negative 08/10/19 20 3:38 PM CDT [facility] Urine URINE SPECIMEN OBTAINED BY CLEAN CATCH PROCEDURE / Unknown Collection / Unknown 08/10/2019 3:14 PM CDT 08/10/2019 3:33 PM CDT Darwin Townsend MD URINE ORDERABLES [facility] CLIA# [id number] [place] [address] * (ABNORMAL) CBC WITH DIFFERENTIAL (08/10/2019 2:45 PM CDT) WBC 9.5 4.5 - 10.5 K/uL 08/10/2019 2:57 PM CDT [facility] RBC 4.13 3.90 - 4.90 M/uL 08/10/2019 2:57 PM CDT [facility] HEMOGLOBIN 11.8 11.8 - 14.8 g/dL 08/10/2019 2:57 PM CDT [facility] HEMATOCRIT 36.1 35.5 - 44.0 % 08/10/2019 2:57 PM CDT [facility] [facility] MCV 87.4 82.0 - 99.0 fL 08/10/2019 2:57 PM CDT [facility] MCH 28.7 27.8 - 34.5 pg 08/10/2019 2:57 PM CDT [facility] MCHC 32.8 32.5 - 35.5 g/dL 08/10/2019 2:57 PM CDT [facility] RDW 14.9(H) 11.5 - 14.5 % 08/10/2019 2:57 PM CDT [facility] PLATELETS 370 160 - 420 K/uL 08/10/2019 2:57 PM CDT [facility] MPV 7.5(L) 8.7 - 12.7 fL 08/10/2019 2:57 PM CDT [facility] NEUTROPHILS 86(H) 45 - 70 % 08/10/2019 2:57 PM CDT [facility] LYMPHOCYTES 9(L) 16 - 45 % 08/10/2019 2:57 PM CDT [facility] MONOCYTES 5 3 - 13 % 08/10/2019 2:57 PM CDT [facility] EOSINOPHILS 0 0 - 7 % 08/10/2019 2:57 PM CDT [facility] BASOPHILS 0 0 - 2 % 08/10/2019 2:57 PM CDT [facility] NEUTROPHIL ABSOLUTE 8.20(H) 1.90 - 7.00 K/uL 08/10/2019 2:57 PM CDT [facility] LYMPHOCYTE ABSOLUTE 0.80 0.70 - 4.50 K/uL 08/10/2019 2:57 PM CDT [facility] MONOCYTE ABSOLUTE 0.40 0.10 - 1.30 K/uL 08/10/2019 2:57 PM CDT [facility] EOSINOPHIL ABSOLUTE 0.00 0.00 - 0.70 K/uL 08/10/2019 2:57 PM CDT [facility] BASOPHILS ABSOLUTE 0.00 0.00 - 0.20 K/uL 08/10/2019 2:57 PM CDT [facility] Blood Venipuncture / Unknown 08/10/2019 2:45 PM CDT 08/10/2019 2:54 PM CDT Darwin Townsend MD HEMATOLOGY ORDERABLE S [facility] CLIA# [id number] [place] [address] * (ABNORMAL) COMPREHENSIVE METABOLIC PANEL (08/10/2019 2:45 PM CDT) [facility] SODIUM 139 136 - 145 mmol/L 08/10/2019 4:12 PM CDT [facility] POTASSIUM 4.1 3.4 - 5.1 mmol/L 08/10/2019 4:12 PM CDT [facility] CHLORIDE 102 98 - 107 mmol/L 08/10/2019 4:12 PM CDT [facility] CO2 23 22 - 29 mmol/L 08/10/2019 4:12 PM CDT [facility] CALCIUM 9.6 8.6 - 10.4 mg/dL 08/10/2019 4:12 PM CDT [facility] BUN 14 6 - 20 mg/dL 08/10/2019 4:12 PM CDT [facility] CREATININE 0.67 0.51 - 0.95 mg/dL 08/10/2019 4:12 PM CDT [facility] GLUCOSE 107(H) 74 - 99 mg/dL 08/10/2019 4:12 PM CDT [facility] TOTAL PROTEIN 7.6 6.3 - 8.7 g/dL 08/10/2019 4:12 PM CDT [facility] ALBUMIN 4.3 3.5 - 5.2 g/dL 08/10/2019 4:12 PM CDT [facility] BILIRUBIN TOTAL 0.2 0.2 - 1.3 mg/dL 08/10/2019 4:12 PM CDT [facility] ALKALINE PHOSPHATASE 46 40 - 150 U/L 08/10/2019 4:12 PM CDT [facility] AST 12 0 - 33 U/L 08/10/2019 4:12 PM CDT [facility] ALT 10 0 - 33 U/L 08/10/2019 4:12 PM CDT [facility] GFR >60 >=60 mL/min/1.7 3 sq meter 08/10/2019 4:12 PM CDT [facility] Comment: eGFR has not been validated [...] GFR, >60 >=60 mL/min/1.7 3 sq meter 08/10/2019 4:12 PM CDT [facility] ANION GAP 14 8 - 16 mmol/L 08/10/2019 4:12 PM CDT [facility] Blood Venipuncture / Unknown 08/10/2019 2:45 PM CDT 08/10/2019 2:53 PM CDT Darwin Townsend MD CHEMISTRY ORDERABLES [facility] CLIA# [id number] [place] [address] * HCG QUALITATIVE, BLOOD (08/10/2019 2:45 PM CDT) HCG QUAL, BLOOD Negative Negative 08/10/2019 3:21 PM CDT [facility] Blood Venipuncture / Unknown 08/10/2019 2:45 PM CDT 08/10/2019 2:53 PM CDT Darwin Townsend MD CHEMISTRY ORDERABLES Performing Organization Address City/[facility]/ZIP Co de Phone Number [facility] CLIA# [id number] [place] [address] * (ABNORMAL) DNA AUTOABS DOUBLE STRANDED (08/10/2019 2:45 PM CDT) dsDNA Ab and Titer Positive 1:640(A) Negative 08/13/2019 7:21 PM CDT [facility] Blood Venipuncture / Unknown 08/10/2019 2:45 PM CDT 08/10/2019 3:38 PM CDT Narrative [facility] - 08/13/2019 7:21 PM CDT dsDNA performed by Gloria brumfield [facility] ACC #: [id number] Darwin Townsend MD CHEMISTRY ORDERABLES [facility] CLIA # [id number] [place] [address] [facility] CLIA# [id number] [facility] [place] [address] documented in this encounter Visit Diagnoses Diagnosis SLE exacerbation- Primary Systemic lupus erythematosus documented in this encounter Additional Health Concerns Infection Onset Date Last Indicated Resolved Time R/O COVID-19 08/10/2019 08/10/2019 08/10/2019 4:24 PM CDT documented as of this encounter Care Teams Custom Studio Coordinator Relationship Specialty Start Date End Date Brian Mon MD [address] [place] [address] PCP - General Internal Medicine 07/15/19 documented as of this encounter
--- OUTSIDE RECORDS SUMMARY | 2024-02-24 20:37 | XMS_ITS | Encounter Summary ---
Author Organization [facility] Address [address] [place] [address] Care Team Providers Care Corrosion Engineer Name Role Phone Huseyin Dangelo MD Primary Care Provider [phone] Encounter Details Date Type Department Care Team (Late st Contact Info) Description 06/21/2019 Digital Self COVID-1 9 Screening [facility] ABSTRACTION [...] on filedocumented in this encounter Care Teams Corrosion Engineer Relationship Specialty Start Date End Date Huseyin Dangelo MD PCP - General 09/29/17 07/14/19 documented as of this encounter
--- OUTSIDE RECORDS SUMMARY | 2024-02-24 20:37 | XMS_ITS | Encounter Summary ---
Author Organization [facility] Address [address] [place] [address] Care Team Providers Care Pension Agent Name Role Phone Brian Mon MD Primary Care Provider Reason for Visit * Reason Onset Date Comments Vaginal Itching 05/08/2020 Encounter Details Date Type Department Care Team (Late st Contact Info) Description 05/08/2020 Nurse Triage [facility] Nurse information management officer [address] [place] [address] Sharon Gonzales RN Social History Tobacco Use Types Packs/Day [...] COVID-19? No / Unsure 05/08/2020 7:05 PM FIELD HAND documented as of this encounter Miscellaneous Notes * Telephone Encounter - Sharon Gonzales RN - 05/08/2020 7:08 PM CST Reason for Disposition ? ? [1] MILD-MODERATE pain AND [2] present > 24 hours Protocols used: VAGINAL [id number] D HAND documented in this encounter Plan of Treatment Not on file documented as of this encounter Visit Diagnoses Not on filedocumented in this encounter Care Teams Pension Agent Relationship Specialty Start Date End Date Brian Mon MD [address] [place] [address] PCP - General Internal Medicine 07/15/19 documented as of this encounter
--- OUTSIDE RECORDS SUMMARY | 2024-02-24 20:37 | XMS_ITS | Encounter Summary ---
Author Organization [facility] Address [address] [place] [address] Care Team Providers Care Maintenance Tech Name Role Phone Brian Mon MD Primary [...] as of this encounter Care Teams Maintenance Tech Relationship Specialty Start Date End Date Brian Mon MD [address] [place] [phone] PCP - General Internal Medicine 07/15/19 documented as of this encounter
--- OUTSIDE RECORDS SUMMARY | 2024-02-24 20:37 | XMS_ITS | Encounter Summary ---
Author Organization [facility] Address [address] [place] [address] Care Team Providers Care Joint Cutter Machine Name Role Phone Brian Mon MD Primary Care Provider Reason for Visit * Reason Comments Missed Menses Encounter Details Date Type Department Care Team (Late st Contact Info) Description 05/31/2020 1:00 PM CDT Office Visit [facility] OBGYN [address] [facility] [address] [place] [address] [address] [place] [address] [place] [address] [facility] [address] [address] Amenorrhea, unspecified (Primary Dx); Encounter to establish gestational age using ultrasound; Threatened in early ; Low serum progesterone; Screening for cervical cancer; VD (venereal disease) screening; Herpes simplex vulvovaginitis; Other forms of systemic lupus erythematosus, unspecified organ involvement status Social History Tobacco Use Types Packs/Day Years [...] Reading Time Taken Comments Blood Pressure 126/80 05/31/2020 1:21 PM CDT Pulse - - Temperature - - Respiratory Rate - - Oxygen Saturation - - Inhaled Oxygen Concentration - - Weight 79.5 kg (175 lb 3.2 oz) 05/31/2020 1:21 P M CDT Height 160 cm (5' 3 ) 05/31/2020 1:21 PM CDT Body Mass Index 31.04 05/31/2020 1:21 PM CDT documented in this encounter Progress Notes * Sheldon Delgado MD - 05/31/2020 2:08 PM CDT [facility] on [facility] Carito MADISON 30 y.o. 1990 HISTORY Chief Complaint Patient presents with ??? Missed Menses HPI: 30 y.o., , No LMP recorded (lmp unknown)., She is not bleeding. She has an unknown last menstrual cycle. She has a history of herpes. Her betahCG yesterday was 7000 per patient. She had this done in [facility]. Past Medical History: Diagnosis Date ??? Gume's disease ??? Anxiety ??? Connective tissue disease ??? Depression ??? Fibromyalgia ??? Herpes ??? HTN (hypertension) ??? Hx of hyperprolactinemia ??? Lupus Past Surgical History: Procedure Laterality Date ??? HX APPENDECTOMY ??? HX MEDIAN NERVE REPAIR No family history on file. Current Outpatient Medications: ??? progesterone micronized (Prometrium) 200 mg Capsule, [...] seizures OB History Para Term AB Living 2 0 0 0 2 0 SAB TAB Ectopic Multiple Live Births 2 0 0 0 0 # Outcome Date GA Lbr Rojas/2nd Weight Sex Delivery Anes PTL Lv 2 SAB SAB 1 SAB SAB Social [...] Gatherings with Friends and Family: ??? Attends Congregation Services: ??? Active Member of Clubs or [...] urgency, dysuria, vasomotor symptoms, PHYSICAL EXAMINATION Vitals: 05/31/20 1321 BP: 126/80 Weight: 79.5 kg (175 lb 3.2 oz) Height: 5' 3 (1.6 m) Body mass index is 31.04 kg/m??. Head: normocephalic and atraumatic Neck: normal without enlarged thyroid, no thyroid nodules are noted. Skin: warm and dry. Cardiovascular: RRR, I do not appreciate a gallop. Lungs: Clear without crackles and wheezes Abdomen: soft, not an acute abdomen, not distended, no guarding Lower Extremities: She has no evidence of a deep venous thrombosis. Pelvic: neurology stroke physician present at exam, the vulva is without [...] Not done Encounter Diagnoses Code Name Primary? N91.2 Amenorrhea, unspecified Yes ??? Z36.89 Encounter to establish gestational age using ultrasound ??? O20.0 Threatened in early ??? R79.89 Low serum progesterone ??? Z12.4 Screening for cervical cancer ??? Z11.3 VD (venereal disease) screening ??? A60.04 Herpes simplex vulvovaginitis ??? M32.8 Other forms of systemic lupus erythematosus, unspecified organ involvement status PLAN: She has lupus. She takes hydroxychloroquine 200 mg daily. She also takes prednisone 5 mg daily. I am going to have her stop the progesterone until she is 9 weeks . My medical technologist clinical was present. This patient has herpes. She has had 2 miscarriages in the past. She has an unknown last menstrual period. She is not bleeding. She denies pain.An ultrasound was done today. I reviewed all of the images devangs. I discussed the results with the patient. I discussed my impression with the patient. Follow-up regarding this ultrasound was given. The treatment plan was discussed and agreed upon. Today's ultrasound revealed an intrauterine with yolk sac only. Blood work will be obtained tomorrow. This patient has a history of low progesterone. I will start her on Prometrium. She is currently not taking bromocriptine. Instructions and precautions given. An ultrasound was done today. I reviewed all of the images and results. I discussed the results with the patient. I discussed my impression with the patient. Follow-up regarding this ultrasound was given. The treatment plan was discussed and agreed upon. A total of 24 minutes were spent in the examination room [...] patients expectations. This report was transcribed using J-Kan speaking voice recognition system. Despite editing there may be minor grammatical and/or minor typographical errors in this appeals board referee due to thelimitations inherent with voice activated computer dictation. This should not adversely affect the overall integrity of the document. Please call for any questions or clarifications as needed. documented in this encounter Plan of Treatment Not on file documented as of this encounter Procedures Procedure Name Priority Date/Time Associated Diagnosis Comments TRICHOMONAS VAGINALIS RNA, QUALITATIVE, TMA, PAP VIAL Routine 05/31/2020 2:47 PM CDT Screening for cervical cancer VD (venereal disease) screening CERV/VAG CYTO AGE BASED SCREEN PAP W CT/NG, TRICH Routine 05/31/2020 2:47 PM CDT Screening for cervical cancer VD (venereal disease) screening CHLAMYDIA AND GC, PAP VIAL Routine 05/31/2020 2:47 PM CDT Screening for cervical cancer VD (venereal disease) screening documented in this encounter Results * CHLAMYDIA AND GC, PAP VIAL (05/31/2020 2:47 PM CDT) Pathologist [facility] CHLAMYDIA DNA AMPLIFICATION NOT DETECTED Not Detected 06/01/2020 12:14 PM CDT [facility] GC DNA AMPLIFICATION NOT DETECTED Not Detected 06/01/2020 12:14 PM CDT [facility] Genital SWAB OF ENDOCERVIX / Unknown Collection / Unknown 05/31/2020 2:47 PM CDT 05/31/2020 10:21 PM CDT Sheldon Delgado MD BODY FLUIDS AND STOO LS COM Performing Organization Address City/[facility]/ZIP Co de Phone Number [facility] [id number] [address] [place] [address] * TRICHOMONAS VAGINALIS,QUALITATIVE,PAP VIAL (05/31/2020 2:47 PM CDT) [facility] TRICHOMONAS VAGINALIS BY PCR Not Detected Not Detected 06/04/2020 11:58 AM CDT [facility] Genital SWAB OF ENDOCERVIX / Unknown Collection / Unknown 05/31/2020 2:47 PM CDT 05/31/2020 10:21 PM CDT Sheldon Delgado MD PATHOLOGY/CYTOLOGY O RDERABLES [facility] [id number] [address] [place] [address] * CERV/VAG CYTO AGE BASED SCREEN PAP W CT/NG, TRICH (05/31/2020 2:47 PM CDT) Pathologist [facility] CASE REPORT Gynecologic Cytology Report ? Case: [id number] ? Authorizing Provider: ??Sheldon Delgado MD ? Collected: ? 05/31/2020 02:47 PM ? [facility] ? [facility] [address] ?? Received: ?05/31/2020 10:20 PM ? [address] ? First Screen: ?Katie Loera ? Rescreen: ?Mallory Yadav ? Specimen: ?LB PAP TP PROT, Endocervix ? 06/09/2020 12:[address] [facility] Service Desk Director Specimen Adequacy Unsatisfactory for evaluation due to insufficient squamous cellularity 06/09/2020 12:[address] [facility] Service Desk Director Interpretation Unsatisfactory for evaluation 06/09/2020 12:[address] [facility] Service Desk Director Educational Note 06/09/2020 12:[address] [facility] Comment:The Pap test is a sc reening test used to aid in the detection of cervical cancer and its precursors. It should not be the sole means by which malignant and premalignant lesions are diagnosed. Both false negative and false positive results may occur. Results must be interpreted in the context of historic and current clinical information. EMBEDDED IMAGE 06/09/2020 12:10 PM CDT [facility] Genital SWAB OF ENDOCERVIX / Unknown Collection / Unknown 05/31/2020 2:47 PM CDT 05/31/2020 10:20 PM CDT Sheldon Delgado MD PATHOLOGY/CYTOLOGY O RDERABLES [facility] CLIA# [id number] [address] [place] [address] * US OB TRANSVAGINAL (05/31/2020) CRL ([place]) [facility] OBGYN [address] Sac Diameter [facility] O BGYN [address] FHR [facility] OBGY N [address] [address] Anatomical Region Laterality Modality Pelvis Ultrasound Narrative 05/31/2020 This is a transvaginal ultrasound. Results: The uterus measures 8.66 cm x 3.93 cm. ??The left ovary measures 1.82 cm The right ovary measures 2.41 cm x 1.22 cm. An intrauterine with yolk sac only is identified. The gestational sac was measured. There was no free fluid. Indication: Amenorrhea, unspecified. Plan: Repeat ultrasound in 1 week. Impression: Threatened miscarriage. ??This patient is less than 8 weeks . Sheldon Delgado MD US ORDERABLES documented in this encounter Visit Diagnoses Diagnosis Amenorrhea, unspecified- Primary Encounter to establish gestational age using ultrasound Encounter for routine screening for malformation using ultrasonics Threatened in early Threatened , unspecified as to episode of care Low serum progesterone Screening for cervical cancer Screening for malignant neoplasm of the cervix VD (venereal disease) screening Screening examination for venereal disease Herpes simplex vulvovaginitis Other forms of systemic lupus erythematosus, unspecified organ involvement status documented in this encounter Care Teams Joint Cutter Machine Relationship Specialty Start Date End Date Brian Mon MD [address] [place] [address] PCP - General Internal Medicine 07/15/19 documented as of this encounter
--- OUTSIDE RECORDS SUMMARY | 2024-02-24 20:37 | XMS_ITS | Encounter Summary ---
Author Organization [place] Address [address] [place]: Epic Prelude ADT [place] [address] Care Team Providers Care Student Support Advisor Name Role Phone Huseyin Dangelo MD Primary Care Provider [phone] Encounter Details Date Type Department Care Team (Latest Contact Info) Description 05/30/2019 Travel Social History Tobacco Use Types Packs/Day [...] filedocumented in this encounter Care Teams Student Support Advisor Relationship Specialty Start Date End Date Huseyin Dangelo MD PCP - General 09/29/17 07/14/19 documented as of this encounter
--- OUTSIDE RECORDS SUMMARY | 2024-02-24 20:37 | XMS_ITS | Encounter Summary ---
Author Organization [facility] Address [address] [place] [address] Care Team Providers Care Bootmaker Hand Name Role Phone Huseyin Dangelo MD Primary Care Provider [phone] Encounter Details Date Type Department Care Team (Late st Contact Info) Description 06/03/2019 Digital Self COVID-1 9 Monitoring STL ABSTRACTION [...] documented as of this encounter Care Teams Bootmaker Hand Relationship Specialty Start Date End Date Huseyin Dangelo MD PCP - General 09/29/17 07/14/19 documented as of this encounter
--- OUTSIDE RECORDS SUMMARY | 2024-02-24 20:37 | XMS_ITS | Encounter Summary ---
Author Organization [facility] Address [address] [place] [address] Care Team Providers Care Life Cycle Assessment Analyst Name Role Phone Huseyin Dangelo MD Primary Care Provider [phone] Encounter Details Date Type Department Care Team (Late st Contact Info) Description 06/21/2019 Digital Self COVID-1 9 Monitoring STL ABSTRACTION [...] on filedocumented in this encounter Care Teams Life Cycle Assessment Analyst Relationship Specialty Start Date End Date Huseyin Dangelo MD PCP - General 09/29/17 07/14/19 documented as of this encounter
--- OUTSIDE RECORDS SUMMARY | 2024-02-24 20:37 | XMS_ITS | Encounter Summary ---
Author Organization [facility] Address [address] [place] [address] Care Team Providers Care Assistant Business Manager Name Role Phone Brian Mon MD Primary Care Provider Encounter Details Date Type Department Care Team (Late st Contact Info) Description 04/27/2020 Orders Only [facility] OBGYN [address] [facility] [address] [address] [facility] [address] [place] [address] [place] [address] [place] [address] Social History Tobacco Use Types Packs/Day Years [...] on filedocumented in this encounter Care Teams Assistant Business Manager Relationship Specialty Start Date End Date Brian Mon MD [address] [place] [phone] PCP - General Internal Medicine 07/15/19 documented as of this encounter
--- OUTSIDE RECORDS SUMMARY | 2024-02-24 20:37 | XMS_ITS | Encounter Summary ---
Author Organization [facility] Address [address] [place] [address] Care Team Providers Care Legislative Analyst Name Role Phone Huseyin Dangelo MD Primary Care Provider Encounter Details Date Type Department Care Team (Late st Contact Info) Description 05/30/2019 [address]phone [facility] [id number] [place] [address] [place] [address] [place] [address] Social History Tobacco Use Types Packs/Day Years [...] Miscellaneous Notes * Telephone Encounter - Raji Helm PA - 05/30/2019 11:01 AM CDT 29-year-old female with history of lupus on prednisone and Plaquenil, asthma and miscarriage 1 weekago called in with worsening symptoms. She reports diarrhea x15 days. Denies hematochezia or melena. Reports 10 bowel movements in the past 24 hours. Is taking Lomotil twice daily. Reports associated low-grade fever, temperature 99.7 ??F today. T-max 3 days ago was 101.6 ??F. Went to [facility] 05/24/2019 and tested negative for COVID-19 and negative for C. difficile. Went to PCP Dr. Gayla Barker 05/26/2019. Went to [facility] again 05/28/2019. Last vomited 3 days ago, nonbloody. Reports associated dyspnea, loss of taste, generalized weakness, chest tightness, nocturnal cough producing clear sputum,sore throat, pharyngeal erythema and abdominal cramping. Was given chlorhexidine mouthwash which she is using. Is chronically on 15 mg prednisone daily, 200 mg Plaquenil daily. Is currently taking Zyrtec, dextromethorphan, Tylenol, Zofran and Xanax and questions if it is okay to take all of this atthe same time. Reports miscarriage 1 week ago and said her hCG had dropped when she saw her PCP 05/25. Denies headache, diarrhea, edema. Pt sounds pleasant, no apparent distress, alert and oriented, answering questions appropriately. Noconversational dyspnea, not coughing. Diarrhea x15 days- possibly functional, less likely infectious or COVID-19 - Patient has pulse oximeter. Pulse ox 99% per patient - Pulse 83 in ER on 05/28/2019 -Went to [facility] 05/24/2019 and tested negative for COVID-19 and negative for C. difficile per patient - Missed appointment for [facility] COVID-19 testing on 05/28/2019. -Advised patient to increase Lomotil usage to 4 times daily. Call PCP if diarrhea persistent with increased Lomotil. Raji Hurley documented in this encounter Plan of Treatment Not on file documented as of this encounter Visit Diagnoses Not on filedocumented in this encounter Care Teams Legislative Analyst Relationship Specialty Start Date End Date Huseyin Dangelo MD PCP - General 09/29/17 07/14/19 documented as of this encounter
--- OUTSIDE RECORDS SUMMARY | 2024-02-24 20:37 | XMS_ITS | Encounter Summary ---
Author Organization [facility] Address [address] [place] [address] Care Team Providers Care Wagon Person Name Role Phone Huseyin Dangelo MD Primary Care Provider [phone] Encounter Details Date Type Department Care Team [...] documented as of this encounter Care Teams Wagon Person Relationship Specialty Start Date End Date Huseyin Dangelo MD PCP - General 09/29/17 07/14/19 documented as of this encounter
--- OUTSIDE RECORDS SUMMARY | 2024-02-24 20:37 | XMS_ITS | Encounter Summary ---
Author Organization [facility] Address [address] [place] [address] Care Team Providers Care Personal Financial Counselor Name Role Phone Brian Mon MD Primary Care Provider [phone] Reason for Visit * Reason Onset Date Comments Medication Refill 05/31/2020 Encounter Details Date Type Department Care Team (Late st Contact Info) Description 05/31/2020 Refill [facility] [address] [facility] [address] [place] [address] [address] [place] [address] [place] [address] [facility] [address] [place] [address] Yeast infection involving the vagina and surrounding area (Primary Dx) Social History Tobacco Use Types [...] Telephone Encounter - Sheldon Delgado MD - 05/31/2020 5:44 PM CDT Can't Prescribe the patient Diflucan with hydroxychloroquine. documented in this encounter Plan of Treatment Not on file documented as of this encounter Visit Diagnoses Diagnosis Yeast infection involving the vagina and surrounding area- Primary Candidiasis of vulva and vagina documented in this encounter Care Teams Personal Financial Counselor Relationship Specialty Start Date End Date Brian Mon MD [address] [place] [address] PCP - General Internal Medicine 07/15/19 documented as of this encounter
--- OUTSIDE RECORDS SUMMARY | 2024-02-24 20:37 | XMS_ITS | Encounter Summary ---
Author Organization [facility] Address [address] [place] [address] Care Team Providers Care Trip Rider Name Role Phone Huseyin Dangelo MD Primary Care Provider [phone] Encounter Details Date Type Department Care Team (Late st Contact Info) Description 06/01/[address] [address] Kaela Mason NP NO ADDRESS ON FILE Social History Tobacco [...] encounter Miscellaneous Notes * Telephone Encounter - Kaela Mason NP - 06/01/2019 11:45 AM CDT Virtual COVID-19 Interaction Patient was contacted via SMS to assess symptoms. He/she reported worsening of symptoms today. Patient reports that she has continued diarrhea. Denies shortness of breath and worsening symptoms.Test scheduled for tomorrow at 10:30 AM. Does not wish to speak with a provider. documented in this encounter Plan of Treatment Not on file documented as of this encounter Visit Diagnoses Not on filedocumented in this encounter Care Teams Trip Rider Relationship Specialty Start Date End Date Huseyin Dangelo MD PCP - General 09/29/17 07/14/19 documented as of this encounter
--- OUTSIDE RECORDS SUMMARY | 2024-02-24 20:37 | XMS_ITS | Encounter Summary ---
Author Organization [facility] Address [address] [place] [address] Care Team Providers Care Burr Bench Hand Name Role Phone Huseyin Dangelo MD Primary Care Provider Reason for Visit * Reason Onset Date Comments covid 07/12/2019 Encounter Details Date Type Department Care Team (Late st Contact Info) Description 07/12/2019 Nurse Triage [facility] Nurse numerical control tool programmer [address] [place] [address] Shima Baird, RN SOB (shortness of breath) (Primary Dx) Social History Tobacco Use Types [...] Telephone Encounter - Shima Baird RN - 07/12/2019 9:34 AM CDT COVID-19 TRIAGE Do you have a fever of 100.4 or greater? Yes 101 orally Do you have a cough, which is new? Yes dry Are you having shortness of breath or difficulty breathing, which is new? Yes shortness of breath Do you have chronic heart, lung, and/or kidney disease, diabetes mellitus, or are you immunosuppressed? Yes Lupus Age = 29 y.o. Have you [...] patient: Follow up at the testing center. Practice good hand hygiene and social distancing of 6 ft. Advised to self isolate until fever free x 72 hrs and 7 days past onset of symptoms with a decrease in the severity of symptoms. Encouraged to seek emergency care if symptoms becomesevere or life threatening. Take tylenol for fever and follow up with PCP for further care as needed.[address] [place] [address] * Telephone Encounter - Shima Baird RN - 07/12/2019 9:32 AM CDT Regarding: cough ----- Message from Rachelle Crow sent at 07/12/2019 9:30 AM CDT ----- Patient's address on file: [address] [place] [address] Patient's current location: [address] [place] [address] documented in this encounter Plan of Treatment Not on file documented as of this encounter Results * 2019 NOVEL CORONAVIRUS (COVID-19) PCR DETECTION (07/15/2019 2:56 PM CDT) COVID-19 PCR Not Detected Not Detected 07/17/19 20 7:43 AM CDT [facility] PERFORMING LAB [facility] 07/17/2019 7:43 AM CDT [facility] Upper Respiratory ENTIRE OROPHARYNX / Unknown Collection / Unknown 07/15/2019 2:56 PM CDT 07/15/2019 8:07 PM CDT Tran Jakcson DO MICROBIOLOGY - GEN ERAL ORDERABLES [facility] CLIA# [id number] [address] [place] [address] [facility] CLIA# [id number] [address] [facility] [place] [address] documented in this encounter Visit Diagnoses Diagnosis SOB (shortness of breath)- Primary Shortness of breath documented in this encounter Care Teams Burr Bench Hand Relationship Specialty Start Date End Date Huseyin Dangelo MD PCP - General 09/29/17 07/14/19 documented as of this encounter
--- OUTSIDE RECORDS SUMMARY | 2024-02-24 20:37 | XMS_ITS | Encounter Summary ---
Author Organization [facility] Address [address] [place] [address] Care Team Providers Care Md Allergy Immunology Name Role Phone Brian Mon MD Primary Care Provider Encounter Details Date Type Department Care Team (Late st Contact Info) Description 05/31/2019 Digital Self COVID-1 9 [address] [facility] ABSTRACTION [...] documented as of this encounter Care Teams Md Allergy Immunology Relationship Specialty Start Date End Date Brian Mon MD [address] [place] [phone] PCP - General Internal Medicine 07/15/19 documented as of this encounter
--- OUTSIDE RECORDS SUMMARY | 2024-02-24 20:38 | XMS_ITS | Encounter Summary ---
Author Organization [facility] Address [address] [place]: Epic Prelude ADT [place] [address] Care Team Providers Care Promotions Manager Name Role Phone Huseyin Dangelo MD Primary Care Provider [phone] Encounter Details Date Type Department Care Team [...] on filedocumented in this encounter Care Teams Promotions Manager Relationship Specialty Start Date End Date Huseyin Dangelo MD PCP - General 09/29/17 07/14/19 documented as of this encounter
--- OUTSIDE RECORDS SUMMARY | 2024-02-24 20:38 | XMS_ITS | Encounter Summary ---
Author Organization [facility] Address [address] [place] [address] Care Team Providers Care Jacket Preparer Name Role Phone Brian Mon MD Primary Care Provider [phone] Encounter Details Date Type Department Care Team (Late st Contact Info) Description 05/27/2019 Digital Self COVID-1 [address] [facility] ABSTRACTION [...] documented as of this encounter Care Teams Jacket Preparer Relationship Specialty Start Date End Date Brian Mon MD [address] [place] [phone] PCP - General Internal Medicine 07/15/19 documented as of this encounter
--- OUTSIDE RECORDS SUMMARY | 2024-02-24 20:38 | XMS_ITS | Encounter Summary ---
Author Organization [facility] Address [address] [place] [address] Care Team Providers Care Elevator Conductor Name Role Phone Brian Mon MD Primary Care Provider [phone] Encounter Details Date Type Department Care Team (Late st Contact Info) Description 05/27/2019 Digital Self COVID-1 9 Monitoring [facility] ABSTRACTION [...] documented as of this encounter Care Teams Elevator Conductor Relationship Specialty Start Date End Date Brian Mon MD [address] [place] [phone] PCP - General Internal Medicine 07/15/19 documented as of this encounter
--- OUTSIDE RECORDS SUMMARY | 2024-02-24 20:38 | XMS_ITS | Encounter Summary ---
Author Organization [facility] Address [address] [place] [address] Care Team Providers Care Cafeteria Assistant Name Role Phone Huseyin Dangelo MD Primary Care Provider [phone] Encounter Details Date Type Department Care Team (Late st Contact Info) Description 05/29/[address] [address] Marvin Cho RN Social History Tobacco Use [...] Telephone Encounter - Marvin Cho RN - 05/29/2019 12:15 PM CDT Attempted to contact patient for SMS text alert today. No answer, left voice message. documented in this encounter Plan of Treatment Not on file documented as of this encounter Visit Diagnoses Not on filedocumented in this encounter Care Teams Cafeteria Assistant Relationship Specialty Start Date End Date Huseyin Dangelo MD PCP - General 09/29/17 07/14/19 documented as of this encounter
--- OUTSIDE RECORDS SUMMARY | 2024-02-24 20:38 | XMS_ITS | Encounter Summary ---
Author Organization [email or web address] Address [address] [place] [address] Care Team Providers Care Proctologist Name Role Phone Huseyin Dangelo MD Primary Care Provider [phone] Encounter Details Date Type Department Care Team (Late st Contact Info) Description 05/23/2019 Nurse Triage [facility] Nurse traffic division commanding officer [address] [place] [address] Gayla Smyth, RN Social History Tobacco Use Types Packs/Day [...] Miscellaneous Notes * Telephone Encounter - Gayla Smyth RN - 05/23/2019 9:01 AM CDT COVID TRIAGE Do you have a new symptom of cough? Yes Do you have a fever? variable and intermittent, Has been over 100, Currently 99.9, Pt states she has been taking Tylenol every 4 hours. Are you having a new symptom of SOB? Yes Have you traveled internationally in the last month? No If yes, location? Have you traveled within the [place] in the last month? No If yes, location? Have you been in contact with a suspected or lab-confirmed coronavirus patient? No, Pt states that she has been to the hospital multiple times and assumes she has been exposed. Pt states that she has Lupus and is . Recommendation to patient: Recommended for patient to proceed with testing at a testing center based on reported symptoms. Pt opted out of scheduling outpatient testing and wants to go to the ER based on how she is feeling right now. Instructed patient to call the ER before going in so they may appropriately prepare for her arrival. Patient's address on file: [address] [place] [address] Patient's current location: [address] [place] [address] documented in this encounter Plan of Treatment Not on file documented as of this encounter Visit Diagnoses Not on filedocumented in this encounter Care Teams Proctologist Relationship Specialty Start Date End Date Huseyin Dangelo MD PCP - General 09/29/17 07/14/19 documented as of this encounter
--- OUTSIDE RECORDS SUMMARY | 2024-02-24 20:38 | XMS_ITS | Encounter Summary ---
Author Organization [facility] Address [address] [place] [address] Care Team Providers Care Sewer Pipe Sorter Name Role Phone Huseyin Dangelo MD Primary Care Provider [phone] Reason for Visit * Reason Onset Date Comments Fever 05/23/2019 Encounter Details Date Type Department Care Team (Late st Contact Info) Description 05/23/2019 Nurse Triage [facility] Nurse telecommunications manager [address] [place] [address] Ann Delgadillo RN Fever, unspecified fever cause (Primary Dx) [...] encounter Miscellaneous Notes * Telephone Encounter - Ann Delgadillo RN - 05/23/2019 10:13 AM CDT COVID TRIAGE Do you have a new symptom of cough? Yes dry Do you have a fever? present, low grade, 100-101 Are you having a new symptom of SOB? Yes Have you traveled internationally in the last month? No If yes, location? Have you traveled within the [place] in the last month? No If yes, location? Have you been in contact with a suspected or lab-confirmed coronavirus patient? Yes Recommendation to patient: Follow up at the testing center. documented in this encounter Plan of Treatment Not on file documented as of this encounter Visit Diagnoses Diagnosis Fever, unspecified fever cause- Primary documented in this encounter Care Teams Sewer Pipe Sorter Relationship Specialty Start Date End Date Huseyin Dangelo MD PCP - General 09/29/17 07/14/19 documented as of this encounter
--- OUTSIDE RECORDS SUMMARY | 2024-02-24 20:38 | XMS_ITS | Encounter Summary ---
Author Organization [facility] Address [address] [place] [address] Care Team Providers Care Alumni Secretary Name Role Phone Brian Mon MD Primary Care Provider Encounter Details Date Type Department Care Team (Late st Contact Info) Description 05/23/2019 Digital Self COVID-1 9 [address] [facility] ABSTRACTION [...] documented as of this encounter Care Teams Alumni Secretary Relationship Specialty Start Date End Date Brian Mon MD [address] [place] [phone] PCP - General Internal Medicine 07/15/19 documented as of this encounter
--- OUTSIDE RECORDS SUMMARY | 2024-02-24 20:38 | XMS_ITS | Encounter Summary ---
Author Organization [facility] Address [address] [place] [address] Care Team Providers Care Seed And Fertilizer Specialist Name Role Phone Brian Mon MD Primary Care Provider [phone] Encounter Details Date Type Department Care Team (Late st Contact Info) Description 05/26/2019 Digital Self COVID-1 9 [address] [facility] ABSTRACTION [...] as of this encounter Care Teams Seed And Fertilizer Specialist Relationship Specialty Start Date End Date Brian Mon MD [address] [place] [phone] PCP - General Internal Medicine 07/15/19 documented as of this encounter
--- OUTSIDE RECORDS SUMMARY | 2024-02-24 20:38 | XMS_ITS | Encounter Summary ---
Author Organization [facility] Address [address] [place] [address] Care Team Providers Care Cell Assembly Pinner Name Role Phone Huseyin Dangelo MD Primary Care Provider [phone] Reason for Referral * MRI (Routine) - Closed Specialty Diagnoses / Procedures Referred By Contac t Referred To Contact MRI Diagnoses Amnestic MCI (mild cognitive impairment with memory loss) Procedures MRI BRAIN W WO CONTRAST MRI [place] [address] [place] [address] [facility] [place] [address] [place] [address] Referral ID Status Reason Start Date Expiration Date V isits Requested Visits Authorized [id number] Closed ST[facility] CTS 09/17/2018 10/18/2019 1 1 Reason for Visit * Auth/Cert Specialty Diagnoses / Procedures Referred By Contac t Referred To Contact MRI [facility] [place] [address] [place] [address] Referral ID Status Reason Start Date Expiration Date Visits Re quested Visits Authorized [id number] 1 1 Encounter Details Date Type Department Care Team (Latest Contact Info) Description 09/18/2018 10:55 AM CDT - 09/18/2018 11:59 PM CDT Hospital Encounter [facility] MRI [place] [address] [place] [address] [place] [address] [place] [address] Discharge Disposition: Home or Self Care Social [...] Start Date End Date hydroxychloroquine (PLAQUENIL) 200 mg tablet Take 200 mg by mouth daily. valACYclovir (VALTREX) 1 gram tablet Take 1,000 mg by mouth 2 times daily. 04/27/2020 documented as of this encounter Miscellaneous Notes * Treatment Plan - Kyung Avila, RT - 09/18/2018 12:37 PM CDT IMAGING SERVICES- CT, MRI MEDICATION and FLUSH PROTOCOL [facility] ORDERS ARE ENTERED ???PER PROTOCOL?? Enter the protocol in the patient???s electronic health record using smartphrase: .imagingctmriprotocol Communication Orders: o For ordered imaging procedures requiring intravenous access : ??? Initiate a peripheral IV, if not already in place, and discontinue IV prior to discharge (if outpatient). ??? Enter order if needed: Insert Peripheral IV Medication Orders: o Local Anesthetic for use to initiate IV ADULT ??? Lidocaine 4% (L.M.X.4) applied topically ONE TIME prior to IV catheter insertion PRN (L.M.X.4 %should be applied 15 minutes prior to procedure) PEDIATRIC ??? Lidocaine 4% (L.M.X.4) applied topically ONE TIME prior to IV catheter insertion PRN (apply 15 minutes prior to procedure) ??? Sucrose 24%(Tootsweet; Sweet-Ease) oral solution 0.2 mL oral (apply to tongue on pacifier or clean, gloved finger), ONE TIME 2 minutes prior to painful procedure. May repeat dose x1 PRN to complete procedure. o Sodium chloride 0.9% (normal saline) flush 10 mLs PRN for saline lock or medication administration. o For respiratory distress, initiate oxygen and/or increase O2 to maintain saturation greater than 90% PROCEDURE SPECIFIC MEDICATIONS ??? Cystogram (CT Pelvis): Iopamidol (Isovue 300) 61%, 50mL, diluted with 250mL of sterile NS. Inject Isovue into 250mL bag ofNS.. Clamp hale catheter prior to instilling solution via catheter. o Instill up to 300mL of Isovue and NS solution into bladder via catheter, one time. CT ORAL CONTRAST PROTOCOLS FOR ADULTS ??? Use Iohexol (Omnipaque) 240 mg/mL for CT scan unless patient has a documented allergy to contrast dye. ??? If allergy present, use Barium Sulfate (EZ Paque) for procedure. ??? If at any time the Asset Protection Associate has a question about which option to administer, seek clarification from a Radiologist. o Iohexol (Omnipaque) 240 mg/mL: 50ml added to 960mL of clear liquid of patient???s choice. Preferred route is oral. May use nasoenteric tube if needed. ??? Administer 900mL of the diluted Omnipaque 240, orally, one time only. o Barium Sulfate (EZ Paque /Vanilla Silq) 96% oral suspension: Preferred route is oral. May use nasoenteric tube if needed. ??? Administer 900mL of barium sulfate, orally, one time only. CT ORAL CONTRAST PROTOCOLS FOR PEDIATRICS Pediatrics = up to age 18 o Pediatric Radiologist will approve of one of the following products selected for procedure. ??? Barium Sulfate (EZ Paque) 96% oral suspension: preferred route is oral. May use nasoenteric tube if needed. [place] to 3 months Administer up to 90mL of Barium Sulfate, orally, one time only 4 months to 1 year old Administer up to 240mL of Barium sulfate , Orally, One Time Only 1 year old to 5 years old Administer up to 360mL of Barium sulfate , Orally, One Time Only 5 years old to 10 years old Administer up to 480mL of Barium sulfate , Orally, One Time Only Over 10 years old Administer up to 600mL of Barium sulfate , Orally, One Time Only ??? Iohexol (Omnipaque) 240 mg/mL oral solution ??? Dilute 25mL of iohexol with 480mL of clear liquid of patient???s choice. Administer the dilutedsolution per age as follows: Preferred route is orally. May use nasoenteric tube if needed. ??? Send any remaining diluted Iohexol solution with the pateint???s nurse to CT [place] Administer 45mL of diluted Iohexol oral solution, orally every 30 minutes x 2 doses. 1 month to 1 year old Administer 120mL of diluted Iohexol oral solution, orally every 30 min x 2 doses. 1 year old to 5 years old Administer 180mL of Iohexol orally every 30 min x 2 doses. 5 years old to 10 years old Administer 240mL of Iohexol orally every 30 min x 2 doses. Over 10 years old Administer 300mL of Iohexol orally every 30 min x [address] RECTAL CONTRAST PROTOCOLS ADULTS: o Iohexol (Omnipaque) 240 mg/mL: Dilute 50mL of Omnipaque with 900mL of warm water in an enema bag.Administer the diluted solution rectally via gravity per patient???s tolerance, up to 950mLs, one time only. CT IV CONTRAST PROTOCOLS for ADULT ADULTS: (If patient is less than 55kg and confirm dose with radiologist) o Iopadmidol (Isovue-300): Administer 2.2mL/kg of Iopamidol 61%, intravenously, one time only. o See table below for maximum dose, unless otherwise authorized by radiologist.If exam has been completed before the entire dose has been administered, stop the injection. o If exam not included in table below, contact radiologist for orders. Procedure Maximum Dose CT Head with Contrast Up to [address] Chest with Contrast Up to [address] Maxilofacial with Contrast Up to [address] Soft Tissue Neck with Contrast CT Chest Abdomen Pelvis with Contrast CT Chest Abdomen with Contrast CT Abdomen Pelvis with Contrast CT Pelvis with Contrast CT Angiogram Examinations (all) CT Soft Tissue Neck and Chest Abomen Pelvis with Contrast Up to [address] Soft Tissue Neck and Chest with Contrast CT Urogram with Contrast CT IV CONTRAST PROTOCOLS for PEDIATRICS PEDIATRICS: Use weight based dosing if patient is less than 55kg and confirm dose with radiologist. [place] to 15 years old Administer 2.2mL/kg (to MAX of 80 mL) of Iopamidol (Isovue-300) 61%, intravenously, one time only 15 years old and older Administer 2.2mL/kg (to MAX of 150mL) of Iopamidol (Isovue-300) 61%, intravenously, one time only MRI IV CONTRAST PROTOCOLS ADULTS: o Multihance and Prohance can be used for most MRI scans o For Liver studies, contact Radiologist to determine use of one of the following: o Gadobenate Dimeglumine (Multihance) (0.1mmol/0.2mL), Administer 0.1mmol/kg = 0.2mL/kg up to MAX of 30mL, intravenously, one time only o Gadoteridol (Prohance) (0.1mmol/0.2mL), Administer 0.1mmol/kg = 0.2mL/kg up to MAX of 30mL, intravenously, one time only o Gadoxetate (Eovist) 2.5 mmol/10mL, Administer 0.025mmol/kg = 0.1mL/kg MAX of 15mL, intravenously,one time only PEDIATRICS: o Radiologist to determine need and type of contrast Term neonates up to 2 years: Gadobutrol (Gadavist) 1mmol/mL injection, Administer 0.1mmol/kg = 0.1mL/kg up to MAX of 14mmol = 14mL, intravenously, one time only 2 years and older Gadobenate Dimeglumine (Multihance) (0.1mmol/0.2mL),Administer 0.1mmol/kg = 0.2mL/kg up to MAX of 20mL intravenously, one time only OR Gadoteridol (Prohance) (0.1mmol/0.2mL), Administer 0.1mmol/kg = 0.2mL/kg up to MAX of 20mL, intravenously, one time only Initiati Initi Initiating Department(s): 02/2013 Nuclear Medicine and Pharmacy Reviewed: 11/2013 ,06/2015, 06/2016; 09/2016; 02/2017; 06/2017; 09/2017 Revised: 11/2013, 03/2016, 06/2016; 09/2016; 02/2017; 06/2017; 09/2017 Approved by: Medical Executive Committee, Imaging Services, and Pharmacy & Therapeutics Committee Date: 10/2017 * Treatment Plan - Kyung Avila, - 09/18/2018 12:37 PM CDT Images from the original note were not included. IMAGING SERVICES- CT, MRI MEDICATION and FLUSH PROTOCOL [facility] ORDERS ARE ENTERED ???PER PROTOCOL?? Enter the protocol in the patient???s electronic health record using iQVCloud: .imagingctmriprRedShelf Communication Orders: o For ordered imaging procedures requiring intravenous access : ??? Initiate a peripheral IV, if not already in place, and discontinue IV prior to discharge (if outpatient). ??? Enter order if needed: Insert Peripheral IV Medication Orders: o Local Anesthetic for use to initiate IV ADULT ??? Lidocaine 4% (L.M.X.4) applied topically ONE TIME prior to IV catheter insertion PRN (L.M.X.4 %should be applied 15 minutes prior to procedure) PEDIATRIC ??? Lidocaine 4% (L.M.X.4) applied topically ONE TIME prior to IV catheter insertion PRN (apply 15 minutes prior to procedure) ??? Sucrose 24%(Tootsweet; Sweet-Ease) oral solution 0.2 mL oral (apply to tongue on pacifier or clean, gloved finger), ONE TIME 2 minutes prior to painful procedure. May repeat dose x1 PRN to complete procedure. o Sodium chloride 0.9% (normal saline) flush 10 mLs PRN for saline lock or medication administration. o For respiratory distress, initiate oxygen and/or increase O2 to maintain saturation greater than 90% PROCEDURE SPECIFIC MEDICATIONS ??? Cystogram (CT Pelvis): Iopamidol (Isovue 300) 61%, 50mL, diluted with 250mL of sterile NS. Inject Isovue into 250mL bag ofNS.. Clamp hale catheter prior to instilling solution via catheter. o Instill up to 300mL of Isovue and NS solution into bladder via catheter, one time. CT ORAL CONTRAST PROTOCOLS FOR ADULTS ??? Use Iohexol (Omnipaque) 240 mg/mL for CT scan unless patient has a documented allergy to contrast dye. ??? If allergy present, use Barium Sulfate (EZ Paque) for procedure. ??? If at any time the Asset Protection Associate has a question about which option to administer, seek clarification from a Radiologist. o Iohexol (Omnipaque) 240 mg/mL: 50ml added to 960mL of clear liquid of patient???s choice. Preferred route is oral. May use nasoenteric tube if needed. ??? Administer 900mL of the diluted Omnipaque 240, orally, one time only. o Barium Sulfate (EZ Paque /Vanilla Silq) 96% oral suspension: Preferred route is oral. May use nasoenteric tube if needed. ??? Administer 900mL of barium sulfate, orally, one time only. CT ORAL CONTRAST PROTOCOLS FOR PEDIATRICS Pediatrics = up to age 18 o Pediatric Radiologist will approve of one of the following products selected for procedure. ??? Barium Sulfate (EZ Paque) 96% oral suspension: preferred route is oral. May use nasoenteric tube if needed. to 3 months Administer up to 90mL of Barium Sulfate, orally, one time only 4 months to 1 year old Administer up to 240mL of Barium sulfate , Orally, One Time Only 1 year old to 5 years old Administer up to 360mL of Barium sulfate , Orally, One Time Only 5 years old to 10 years old Administer up to 480mL of Barium sulfate , Orally, One Time Only Over 10 years old Administer up to 600mL of Barium sulfate , Orally, One Time Only ??? Iohexol (Omnipaque) 240 mg/mL oral solution ??? Dilute 25mL of iohexol with 480mL of clear liquid of patient???s choice. Administer the dilutedsolution per age as follows: Preferred route is orally. May use nasoenteric tube if needed. ??? Send any remaining diluted Iohexol solution with the pateint???s nurse to CT [place] Administer 45mL of diluted Iohexol oral solution, orally every 30 minutes x 2 doses. 1 month to 1 year old Administer 120mL of diluted Iohexol oral solution, orally every 30 min x 2 doses. 1 year old to 5 years old Administer 180mL of Iohexol orally every 30 min x 2 doses. 5 years old to 10 years old Administer 240mL of Iohexol orally every 30 min x 2 doses. Over 10 years old Administer 300mL of Iohexol orally every 30 min x [address] RECTAL CONTRAST PROTOCOLS ADULTS: o Iohexol (Omnipaque) 240 mg/mL: Dilute 50mL of Omnipaque with 900mL of warm water in an enema bag.Administer the diluted solution rectally via gravity per patient???s tolerance, up to 950mLs, one time only. CT IV CONTRAST PROTOCOLS for ADULT ADULTS: (If patient is less than 55kg and confirm dose with radiologist) o Iopadmidol (Isovue-300): Administer 2.2mL/kg of Iopamidol 61%, intravenously, one time only. o See table below for maximum dose, unless otherwise authorized by radiologist.If exam has been completed before the entire dose has been administered, stop the injection. o If exam not included in table below, contact radiologist for orders. Procedure Maximum Dose CT Head with Contrast Up to [address] Chest with Contrast Up to [address] Maxilofacial with Contrast Up to [address] Soft Tissue Neck with Contrast CT Chest Abdomen Pelvis with Contrast CT Chest Abdomen with Contrast CT Abdomen Pelvis with Contrast CT Pelvis with Contrast CT Angiogram Examinations (all) CT Soft Tissue Neck and Chest Abomen Pelvis with Contrast Up to [address] Soft Tissue Neck and Chest with Contrast CT Urogram with Contrast CT IV CONTRAST PROTOCOLS for PEDIATRICS PEDIATRICS: Use weight based dosing if patient is less than 55kg and confirm dose with radiologist. [place] to 15 years old Administer 2.2mL/kg (to MAX of 80 mL) of Iopamidol (Isovue-300) 61%, intravenously, one time only 15 years old and older Administer 2.2mL/kg (to MAX of 150mL) of Iopamidol (Isovue-300) 61%, intravenously, one time only MRI IV CONTRAST PROTOCOLS ADULTS: o Multihance and Prohance can be used for most MRI scans o For Liver studies, contact Radiologist to determine use of one of the following: o Gadobenate Dimeglumine (Multihance) (0.1mmol/0.2mL), Administer 0.1mmol/kg = 0.2mL/kg up to MAX of 30mL, intravenously, one time only o Gadoteridol (Prohance) (0.1mmol/0.2mL), Administer 0.1mmol/kg = 0.2mL/kg up to MAX of 30mL, intravenously, one time only o Gadoxetate (Eovist) 2.5 mmol/10mL, Administer 0.025mmol/kg = 0.1mL/kg MAX of 15mL, intravenously,one time only PEDIATRICS: o Radiologist to determine need and type of contrast Term neonates up to 2 years: Gadobutrol (Gadavist) 1mmol/mL injection, Administer 0.1mmol/kg = 0.1mL/kg up to MAX of 14mmol = 14mL, intravenously, one time only 2 years and older Gadobenate Dimeglumine (Multihance) (0.1mmol/0.2mL),Administer 0.1mmol/kg = 0.2mL/kg up to MAX of 20mL intravenously, one time only OR Gadoteridol (Prohance) (0.1mmol/0.2mL), Administer 0.1mmol/kg = 0.2mL/kg up to MAX of 20mL, intravenously, one time only Initiati Initi Initiating Department(s): 02/2013 Nuclear Medicine and Pharmacy Reviewed: 11/2013 ,06/2015, 06/2016; 09/2016; 02/2017; 06/2017; 09/2017 Revised: 11/2013, 03/2016, 06/2016; 09/2016; 02/2017; 06/2017; 09/2017 Approved by: Medical Executive Committee, Imaging Services, and Pharmacy & Therapeutics Committee Date: 10/2017 documented in this encounter Plan of Treatment Not on file documented as of this encounter Procedures Procedure Name Priority Date/Time Associated Diagnosis Comments MRI BRAIN W WO CONTRAST Routine 09/18/2018 12:36 PM CDT Amnestic MCI (mild cognitive impairment with memory loss) documented in this encounter Results * MRI BRAIN W WO CONTRAST (09/18/2018 12:36 PM CDT) Anatomical Region Laterality Modality Head Magnetic Resonan ce 09/18/2018 12:4 6 PM CDT Impressions 09/19/2018 10:13 AM CDT IMPRESSION: Incidental note is made of 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 DICTATION LOCATION: Location 1 - [facility] Narrative 09/19/2018 10:13 AM CDT EXAM: MRI BRAIN WITHOUT AND WITH IV CONTRAST DATE: 09/18/2018 12:36 PM HISTORY: ?? Amnestic MCI (mild cognitive impairment with memory loss) TECHNIQUE: Multiplanar and multisequence magnetic resonance images of the brain were obtained with and without intravenous gadolinium. FINDINGS: Comparison is made with prior study dated 07/12/2018. 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 Brain parenchymal signal intensity is otherwise normal. Bynum-white matter differentiation is normal. No diffusion restriction to suggest acute infarct is seen. No evidence of hemorrhage is seen on gradient sequence. The ventricular system is normal in size and configuration. Midline structures are not displaced. No abnormal enhancement is seen. No mass or mass effect is seen. Vascular flow-voids are normal. The paranasal sinuses and mastoid air cells are aerated. The calvarium has normal marrow signal intensity. Procedure Note Eva Bell MD - 09/19/2018 EXAM: MRI BRAIN WITHOUT AND WITH IV CONTRAST DATE: 09/18/2018 12:36 PM HISTORY: Amnestic MCI (mild cognitive impairment with memory loss) TECHNIQUE: Multiplanar and multisequence magnetic resonance images of the brain were obtained with and without intravenous gadolinium. FINDINGS: Comparison is made with prior study dated 07/12/2018. 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 Brain parenchymal signal intensity is otherwise normal. Bynum-white matter differentiation is normal. No diffusion restriction to suggest acute infarct is seen. No evidence of hemorrhage is seen on gradient sequence. The ventricular system is normal in size and configuration. Midline structures are not displaced. No abnormal enhancement is seen. No mass or mass effect is seen. Vascular flow-voids are normal. The paranasal sinuses and mastoid air cells are aerated. The calvarium has normal marrow signal intensity. 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 DICTATION LOCATION: Location 1 - [facility] Huseyin Dangelo MD MR ORDERABLES documented in this encounter Visit Diagnoses Diagnosis Amnestic MCI (mild cognitive impairment with memory loss) Mild cognitive impairment, so stated documented in this encounter Administered Medications Inactive Administered Medications - up to 3 most recent administrations Medication Order MAR Action Action Date Dose Rate Site gadobenate dimeglumine (MULTIHANCE) 529 mg/mL (0.1mmol/0.2mL) injection 15 mL 15 mL, IV, INTRA-PROCEDURE ONCE, 1 dose, Starting on Sun09/18/18 at 1236, Until Sun09/18/18 at 1239, Routine Contrast Given 09/18/2018 12:39 PM CDT 12 mL documented in this encounter Care Teams Cell Assembly Pinner Relationship Specialty Start Date End Date Huseyin Dangelo MD PCP - General 09/29/17 07/14/19 documented as of this encounter
--- OUTSIDE RECORDS SUMMARY | 2024-02-24 20:38 | XMS_ITS | Encounter Summary ---
Author Organization [facility] Address [address] [place] [address] Care Team Providers Care Size Mixer Name Role Phone Brian Mon MD Primary [...] documented as of this encounter Care Teams Size Mixer Relationship Specialty Start Date End Date Brian Mon MD [address] [place] [id number] PCP - General Internal Medicine 07/15/19 documented as of this encounter
--- OUTSIDE RECORDS SUMMARY | 2024-02-24 20:38 | XMS_ITS | Encounter Summary ---
Author Organization [facility] Address [address] [place]: Epic Prelude ADT [place] [address] Care Team Providers Care Etl Manager Name Role Phone Huseyin Dangelo MD Primary Care Provider [phone] Encounter Details Date Type Department Care Team [...] on filedocumented in this encounter Care Teams Etl Manager Relationship Specialty Start Date End Date Huseyin Dangelo MD PCP - General 09/29/17 07/14/19 documented as of this encounter
--- OUTSIDE RECORDS SUMMARY | 2024-02-24 20:38 | XMS_ITS | Encounter Summary ---
Author Organization [facility] Address [address] [place] [address] Care Team Providers Care Tester Equipment Name Role Phone Huseyin Dangelo MD Primary Care Provider [phone] Reason for Visit * Reason Comments Hand Pain * Auth/Cert Specialty Diagnoses / Procedures Referred By Jud freeman Referred To Contact Emergency Medicine [facility] Emergency Department [id number] [place] [address] Referral ID Status Reason Start Date Expiration Date Visits Re quested Visits Authorized [id number] 1 1 Encounter Details Date Type Department Care Team (Late st Contact Info) Description 12/22/2018 4:54 AM CDT - 12/22/2018 6:48 AM CDT Emergency [facility] Emergency Department [address] [place] [id number] [place] [address] [place] [address] Postoperative pain of extremity (Primary Dx) Discharge Disposition: Left without being seen Social [...] Sign Reading Time Taken Comments Blood Pressure 126/87 12/22/2018 4:43 AM CDT Pulse 92 12/22/2018 4:43 AM CDT Temperature 36.5 ??C (97.7 ??F) 12/22/2018 4:43 AM CD T Respiratory Rate 16 12/22/2018 4:43 AM CDT Oxygen Saturation 98% 12/22/2018 4:43 AM CDT Inhaled Oxygen Concentration - - Weight 63.5 kg (140 lb) 12/22/2018 4:43 AM CDT Height 157.5 cm (5' 2 ) 12/22/2018 4:43 AM CDT Body Mass Index 25.61 12/22/2018 4:43 AM CDT documented in this encounter Medications at Time of Discharge Medication Sig Dispensed Refills Start Date End Date omeprazole (PriLOSEC) 20 mg Capsule, Delayed Release(E.C.) Take 20 mg by mouth daily. hydroxychloroquine (PLAQUENIL) 200 mg tablet Take 200 mg by mouth daily. gabapentin (NEURONTIN) 300 mg capsule Take 1 Capsule (300 mg) by mouth 3 times daily for 7 days. 21 Capsule 12/23/2018 12/30/2018 lidocaine (L.M.X.4) 4 % Cream Apply to affected area daily for 3 days. 12/23/2018 12/26/2018 gabapentin (NEURONTIN) 300 mg capsule Please begin 1 capsule daily x1 day, then 1 capsule twice daily x1 day, then start 1 capsule 3 times daily. 45 Capsule 12/15/2018 12/23/2018 valACYclovir (VALTREX) 1 gram tablet Take 1,000 mg by mouth 2 times daily. 04/27/2020 documented as of this encounter ED Notes * Kristin Aponte RN - 12/22/2018 6:47 AM CDT This RN and MD went to see patient and she was not in the room. * Maryam Gaitan RN - 12/22/2018 5:43 AM CDT Patient requesting ice packs, provided by diploma pharmacy technician. * Maryam Gaitan RN - 12/22/2018 5:22 AM CDT Patient given hot packs for pain, updated on POC. * Shaye Pugh RN - 12/22/2018 4:50 AM CDT Pt drove self to er. Pt co increased pain to right wrist since her median nerve surgery on 12/09/18. Pt states she has been in touch with her surgeon on a daily basis and she is told to come to the ER. +pms distal to surgery site. Pt has been taking hydrocodone and lyrica. Pt still has medications and taking regularly but without relief. Cap refill less than 3 seconds * Darwin Townsend MD - 12/22/2018 4:39 AM CDT [id number] Reviewed pt's chart and nursing notes. When I went to see the pt, she was not in her room andmay have eloped from the ED. Will assess if she returns. This note is prepared by Jan Montemayor acting as a scribe for Dr. Townsend. The scribe's documentation has been prepared under my direction and personally reviewed by me in its entirety. I confirm that the note above accurately reflects all work, treatment, procedures, and medical decision making performed by me. Signed by Dr. Darwin Townsend M.D. documented in this encounter Plan of Treatment Not on file documented as of this encounter Visit Diagnoses Diagnosis Postoperative pain of extremity- Primary Other acute postoperative pain documented in this encounter Care Teams Tester Equipment Relationship Specialty Start Date End Date Huseyin Dangelo MD PCP - General 09/29/17 07/14/19 documented as of this encounter
--- OUTSIDE RECORDS SUMMARY | 2024-02-24 20:38 | XMS_ITS | Encounter Summary ---
Author Organization [facility] Address [address] [place] [address] Care Team Providers Care Joint Cutter Name Role Phone Huseyin Dangelo MD Primary Care Provider [phone] Encounter Details Date Type Department Care Team (Late st Contact Info) Description 05/26/[address] [id number] Sharla Vernon FNP [address] [place] [id number] Social History Tobacco Use Types Packs/Day Years [...] encounter Miscellaneous Notes * Telephone Encounter - Sharla Russell FNP - 05/26/2019 6:10 PM CDT Patient was contacted via SMS to assess symptoms. He/she reported worsening of symptoms today. She has an appt to get tested for COVID tomorrow. She denies worsening of symptoms. documented in this encounter Plan of Treatment Not on file documented as of this encounter Visit Diagnoses Not on filedocumented in this encounter Care Teams Joint Cutter Relationship Specialty Start Date End Date Huseyin Dangelo MD PCP - General 09/29/17 07/14/19 documented as of this encounter
--- OUTSIDE RECORDS SUMMARY | 2024-02-24 20:38 | XMS_ITS | Encounter Summary ---
Author Organization [facility] Address [address] [place] [address] Care Team Providers Care [employer] Technician Name Role Phone Huseyin Dangelo MD Primary Care Provider Reason for Visit * Reason Comments syncope Patient arrvied to [facility] complaining of a syncope episode in the shower this morning. Reports having chest pain that started yesterday and shooting pain in her neck. Denies fevers at home.Hx of Lupus. Reports feeling weird. Chest Pain Neck Pain * Auth/Cert Specialty Diagnoses / Procedures Referred By Jud freeman Referred To Contact Emergency Medicine [facility] Emergency Department [address] [place] [address] Referral ID Status Reason Start Date Expiration Date Visits Re quested Visits Authorized [id number] 1 1 Encounter Details Date Type Department Care Team (Late st Contact Info) Description 09/16/2018 12:23 PM CDT - 09/16/2018 4:40 PM CDT Emergency [facility] Emergency Department [id number] [place] [id number] Other chronic pain (Primary Dx) Discharge Disposition: Home or [...] Sign Reading Time Taken Comments Blood Pressure 134/90 09/16/2018 1:47 PM CDT Pulse - - Temperature 36.8 ??C (98.3 ??F) 09/16/2018 9:14 AM CD T Respiratory Rate 20 09/16/2018 1:47 PM CDT Oxygen Saturation 100% 09/16/2018 1:47 PM CDT Inhaled Oxygen Concentration - - Weight 61.2 kg (135 lb) 09/16/2018 9:14 AM CDT Height 160 cm (5' 3 ) 09/16/2018 9:14 AM CDT Body Mass Index 23.91 09/16/2018 9:14 AM CDT documented in this encounter Discharge Instructions * Discharge Instructions* Chirta Petit PA-C - 09/16/2018 4:29 PM CDT Thank you for giving us the opportunity to care for you today. If at any point you are becoming more ill, please call your doctor or return here. You are always welcome back. If you have any questions about this visit, concerns about your symptoms, questions about your medications or other concerns, please give me a call. ADDITIONAL DISCHARGE INSTRUCTIONS: --Please follow all the instructions that we have discussed and know that you are always welcome back if you have further issues or concerns. --While the tests and exam we have preformed in the Emergency Department did not show anything dangerous or life threatening it is important for you to follow up with your doctor for further evaluation of your symptoms. It is also important to return to the ED if your symptoms become worse or you have new or further concerns. --Radiology: If you had an x-ray, the read is preliminary and you will be called if there are any further findings on the final read. (Please make sure that you have given registration a working phone number) --Again, you are always welcome back. * Attachments The following attachments cannot be sent through Care Everywhere. * Chronic Pain (Senegalese) documented in this encounter Medications at Time of Discharge Medication Sig Dispensed Refills Start Date End Date hydroxychloroquine (PLAQUENIL) 200 mg tablet Take 200 mg by mouth daily. valACYclovir (VALTREX) 1 gram tablet Take 1,000 mg by mouth 2 times daily. 04/27/2020 documented as of this encounter ED Notes * Chino Garcia LMSW - 09/16/2018 4:37 PM CDT Patient was discharged and this regional extension service specialist was not able to assess the patient. * Gilmar Ceballos RN - 09/16/2018 3:13 PM CDT financial assistance called per patient request * Pam Vizcaino RN - 09/16/2018 9:24 AM CDT Emergency Department Adult Syncope Protocol [facility] ORDERS ARE ENTERED PER PROTOCOL Enter the protocol in the patient's electronic health record using smartphrase: .edadultsyncopeprotocol Nursing Orders: o Insert peripheral IV o Keep NPO Laboratory Orders: o CBC with diff (IRZ2296) o CMP (LAB17) o TSH Reflexive ([id number]) o Urinalysis with Reflex Microscopy (DNM749) o If female of childbearing age: HCG Qualitative urine (XAQ371) sent to lab o POC Glucose (POC10) o PT/INR (YOP361) if on Coumadin o BNP if history of CHF or age >50 Diagnostic Test Orders: o EKG (EKG1) - be sure to include indication Medication Orders: o Sodium chloride 0.9% (normal saline) flush 5 mLs every 8 hours o Sodium chloride 0.9% (normal saline) flush 5 mLs PRN for saline lock or medication administration Other Treatments: o O2 to keep oxygen saturation above 90% Initiating Department(s): Date: 09/2017 Department: Adult Emergency Department Approved by: Armando Millan MD, System Engineer, Emergency Medicine Date: 10-27-17 Approved by: Flaco Coelho, Tire Inspector, Emergency Services and Automotive Service Consultant Date: 10-27-17 Approved by: Andrey Lopez MD, Emergency Medicine Date: 07-01-18 Approved by: Medical Executive Committee Date: 11-13-17 Approved by: Pharmacy & Therapeutics Committee Date: 11-08-17 * Chitra Petit PA-C - 09/16/2018 9:10 AM CDT HISTORY OF PRESENT ILLNESS Carito Rausch, a 28 y.o. female presents to the ED with a Chief Complaint of syncope; Chest Pain; and Neck Pain Subjective Patient presents to the ED with pain to her entire body since December. Patient states it started after miscarriage. She has been here several times but is still having the pain. He sees a specialistfor her lupus but does not feel like it is helping. She would also like a new neurology referral. She states she tried to get in but they would not take her without insurance She denies any fever or chills. No nausea or vomiting. She states the pain is so bad she felt like she was going to pass out several times yesterday. She did not fall or hit her head. REVIEW OF SYSTEMS Review of Systems Constitutional: Negative for chills, fever and unexpected weight change. HENT: Negative. Respiratory: Negative for cough and shortness of breath. Cardiovascular: Negative. Negative for palpitations. No chest pain now but has had in the past Gastrointestinal: Negative for abdominal pain, nausea and vomiting. Endocrine: Negative. Genitourinary: Negative. Musculoskeletal: Negative. Negative for back pain. Skin: Negative. Negative for color change, rash and wound. Neurological: Positive for syncope, weakness, light-headedness and numbness. Hematological: Negative. Psychiatric/Behavioral: Negative. Negative for confusion and suicidal ideas. All other systems reviewed [...] has a past surgical history that includes hx appendectomy. FAMILY: Patient's family history is not on file. SOCIAL: reports that she quit smoking about 9 months ago. Her smoking use included cigarettes. She smoked 0.25 packs per day. She has never used smokeless tobacco. She reports that she drinks alcohol. She reports that she has current or past drug history. Drugs: Marijuana and Cocaine. No history on file. Social History Other Topics Concern ??? Not on file PROBLEM LIST: Patient has Myalgia, unspecified site; Arthralgia; Weakness; and Lupus on their problem list. ALLERGIES Methylprednisolone HOME MEDICATIONS Patient's Home Medications Current Home Medications ALPRAZOLAM (XANAX) 0.25 MG TABLET HYDROCODONE-ACETAMINOPHEN (NORCO) 5-325 MG TABLET HYDROXYCHLOROQUINE (PLAQUENIL) 200 MG TABLET KETOROLAC TROMETHAMINE (TORADOL) 10 MG TABLET MYCOPHENOLATE MOFETIL (CELLCEPT) 250 MG CAPSULE ONDANSETRON (ZOFRAN) 4 MG TABLET PREDNISONE (DELTASONE) 10 MG TABLET VALACYCLOVIR (VALTREX) 1 GRAM TABLET Medications Modified during this Encounter Medications Discontinued during this Encounter Objective PHYSICAL EXAM INITIAL VS BP: (!) 124/97 (09/16/18913), Heart Rate: 97 bpm (09/16/18913), Resp: 16 (09/16/18913), Pulse: (not recorded), Temp: 98.3 ??F (36.8 ??C) (09/16/18913), Temp src: Oral (07/22/19 0914), SpO2: 100 % (09/16/18913), Height: 5' 3 (160 cm) (09/16/18913), Weight: 61.2 kg (135 lb) (09/16/18913), BMI (Calculated): 23.92 (09/16/18913) Patient's last menstrual period was 08/27/2018. Physical Exam Constitutional: She is oriented to person, place, and time. No distress. HENT: Head: Normocephalic and atraumatic. Right Ear: External ear normal. Left Ear: External ear normal. Nose: Nose normal. Mouth/Throat: Oropharynx is clear and moist. No oropharyngeal exudate. Eyes: Conjunctivae are normal. Right eye exhibits no discharge. Left eye exhibits no discharge. Neck: Trachea normal, normal range of motion and full passive range of motion without pain. No edema and no erythema present. No Brudzinski's sign and no Kernig's sign noted. Cardiovascular: Normal rate, regular rhythm, normal heart sounds and intact distal pulses. Pulmonary/Chest: Effort normal and breath sounds normal. No respiratory distress. She has no wheezes. She has no rales. Abdominal: Soft. She exhibits no distension. Musculoskeletal: Normal range of motion. Neurological: She is alert and oriented to person, place, and time. She has normal strength. No cranial nerve deficit or sensory deficit. She displays a negative Romberg sign. Normal jthuiz-hy-zrhu and cnkc-cz-logv Steady gait Skin: Skin is warm and dry. She is not diaphoretic. Psychiatric: She has a normal mood and affect. Her behavior is normal. Judgment and thought contentnormal. Nursing note and vitals reviewed. DIAGNOSTICS LAB: CBC WITH DIFFERENTIAL - Abnormal Result Value WBC 6.0 RBC 4.43 HEMOGLOBIN 11.6 (*) HEMATOCRIT 35.5 MCV 80.0 (*) MCH 26.2 (*) MCHC 32.8 RDW 18.4 (*) PLATELETS 325 MPV 7.6 (*) NEUTROPHILS 77 (*) LYMPHOCYTES 17 MONOCYTES 5 EOSINOPHILS 0 BASOPHILS 1 IMMATURE GRANULOCYTES 0 NEUTROPHIL ABSOLUTE 4.60 LYMPHOCYTE ABSOLUTE 1.00 MONOCYTE ABSOLUTE 0.30 EOSINOPHIL ABSOLUTE 0.00 BASOPHILS ABSOLUTE 0.00 IMMATURE GRANULOCYTES ABSOLUTE 0.00 TSH - Abnormal TSH 4.48 (*) URINALYSIS WITH REFLEX CULTURE - Abnormal COLOR UA Yellow CLARITY UA Slightly Cloudy (*) SPECIFIC GRAVITY UA 1.027 PH UA 5.0 LEUKOCYTE ESTERASE UA Negative NITRITE UA Negative PROTEIN UA 1+ (*) GLUCOSE UA Negative KETONES UA Negative UROBILINOGEN UA Normal BILIRUBIN UA Negative BLOOD UA Negative WBC UA 3-5 (*) RBC UA 3-5 (*) BACTERIA UA 1+ (*) EPITHELIAL CELLS, URINE 6-10 (*) HYALINE CAST None Seen Ascorbic Acid UA Negative CK - Abnormal CK 15 (*) DRUG SCREEN, URINE - Abnormal AMPHETAMINE QUAL, URINE Negative BARBITURATE QUAL, URINE Negative BENZODIAZEPINE QUAL, URINE Negative COCAINE QUAL URINE Negative OPIATE QUAL, URINE Negative CANNABINOIDS QUAL, URINE Negative PCP QUAL, URINE Negative OXYCODONE QUAL, URINE Negative METHADONE QUAL, URINE Negative CREATININE, URINE 280.2 (*) COMPREHENSIVE METABOLIC PANEL - Normal SODIUM 140 POTASSIUM 3.7 CHLORIDE 103 CO2 24 CALCIUM 9.5 BUN 18 CREATININE 0.72 GLUCOSE 87 TOTAL PROTEIN 7.6 ALBUMIN 4.1 BILIRUBIN TOTAL 0.3 ALKALINE PHOSPHATASE 47 AST 16 ALT 15 GFR >60 GFR, >60 ANION GAP 13 HCG QUANTITATIVE, BLOOD - Normal HCG QUANT, BLOOD <0.1 D-DIMER - Normal D-DIMER QUANT 0.34 TROPONIN BASELINE, 5TH GEN - Normal TROPONIN T, BASELINE 5TH GEN <6 TROPONIN 2 HR, 5TH GEN - Normal TROPONIN T, 2 HR 5TH GEN <6 EXTRA TUBE EXTRA TUBE (URINE CONNER) TROPONIN 6 HR, 5TH GEN POC GLUCOSE POC GLUCOSE POC GLUCOSE 87 RESOURCE PROGRAM TEACHER NAME SILVA BOURGEOIS RADIOLOGY: XR CHEST PA AND LATERAL 2 VW Radiologist Impression IMPRESSION: 1. Negative chest. 2. No significant change since 09/10/2018. DICTATION LOCATION: Location [address] [place] [address] EKG: PROCEDURES Procedures MEDICAL DECISION MAKING AND PLAN OF CARE [facility] Summary Statement: Patient here for pain that she has had for several months. States it started in December. She is currently seeing a specialist for lupus She states she does not know why she is having the pain. She has been to the hospital for the same thing several times and has had full work-ups which were normal. She denies any new symptoms at thistime No new fever or chills. She does not want to be admitted. Wants to go home. She is currently on tramadol and would like an alternative because she does not like the way it makes her feel. She states Toradol has helped in the past. She did not want a spinal tap or CT head. I feel this is reasonable given she has had a head CT less than a month ago and has normal labs and no fever I do not feel this is ACS Normal EKG and normal troponin and no risk factors initially mild tachycardia resolved Due to possible syncope yesterday did do a cardiac work up and and D dimer To r/o PE as cause of synope. Normal D dimer. Pe unlikely. No current chest pain or SOB Diagnostic Considerations: Patient had head CT less than a month ago for the same thing. Discussed the risks of radiation versus benefit with the patient and she agreed she did not want one I also discussed doing a spinal tap with the patient and she is refusing at this time. I feel this is reasonable given patient has had the symptoms for several months and has normal labs I have reviewed previous: notes, CT and x-rays I have reviewed current: labs, ECG and imaging I have reviewed nursing notes related to past medical history, social history, and review of systems and agree, unless otherwise noted. HEART Score for Major Cardiac Events Using High Sensitivity Troponin: History: Slightly suspicious EKG: Normal Age: < or = 45 Risk factors: No risk factors known Troponin: Women < or = 10 OR Men < or = 15 HEART score is: 0 PERC Rule for Pulmonary Embolism: Age > or = 50: No Heart rate >100: Yes O2 sat on room air <95%: No Prior history of venous thromboembolism: No Trauma or surgery within 4 weeks: No Hemoptysis: No Exogenous Estrogen: No Unilateral leg swelling: No Reevaluation 09/16/2018 2:03 PM Pain: Not much better, Reevaluation 09/16/2018 3:12 PM Pain: Doing a little better. would like a social service consult. they are coming to pts room now Reevaluation 09/16/2018 4:11 PM Pain: Doing better, wants to go home. does not want admission or LP. prefers to go home. Reevaluation 09/16/2018 4:27 PM Pain: No pain. smiling, walking around ED asking to leave Medications Administered During the ED Stay from 09/16/2018 0910 to 09/16/2018 1629 Date/Time Order Dose Route Action 09/16/2018 1416 sodium chloride 0.9% bolus solution 1,000 mL 0 mL IV Stopped 09/16/2018 1346 sodium chloride 0.9% bolus solution 1,000 mL 1,000 mL IV New Bag 09/16/2018 1345 morphine 4 mg/mL injection 4 mg 4 mg IV Given 09/16/2018 1345 ondansetron (ZOFRAN) 4 mg/2 mL injection 4 mg 4 mg IV Given 09/16/2018 1616 ketorolac (TORADOL) injection 15 mg 15 mg IV Given . New Prescriptions for this Encounter CYCLOBENZAPRINE (FLEXERIL) 10 MG TABLET Take 1 Tablet (10 mg) by mouth 3 times daily as needed for Spasm. LIDOCAINE (LIDOCAINE PAIN RELIEF) 4 % ADHESIVE PATCH, MEDICATED Apply one patch to painful area every 24 hours. LAST VS BP: (!) 134/90 (09/16/181346), Heart Rate: 100 bpm (09/16/181346), Resp: 20 (09/16/181346), Pulse: (not recorded), Temp: 98.3 ??F (36.8 ??C) (09/16/18913), Temp src: Oral (09/16/18913), SpO2: 100 % (09/16/181346) CLINICAL IMPRESSION Final diagnoses: [G89.29] Other chronic pain (Primary) DISPOSITION, EDUCATION AND MEDICATION RECONCILIATION Medications reconciled. See after visit summary for patient education on discharged patients. ED Disposition ED Disposition Condition User Date/Time Comment Discharge Stable Chitra Petit PA-C Mon Sep 16, 2018 4:27 PM ATTESTATION STATEMENTS documented in this encounter Plan of Treatment Not on file documented as of this encounter Procedures Procedure Name Priority Date/Time Associated Diagnosis Comments XR CHEST PA AND LATERAL 2 VW Stat 09/16/2018 2:28 PM CDT TROPONIN 2 HR, 5TH GEN Timed Study 09/16/2018 1:45 PM CDT D-DIMER Stat 09/16/2018 1:45 PM CDT EXTRA TUBE Stat 09/16/2018 9:49 AM CDT EXTRA TUBE (URINE CONNER) Stat 09/16/2018 9:49 AM CDT URINALYSIS WITH REFLEX CULTURE Stat 09/16/2018 9:49 AM CDT DRUG SCREEN, URINE Stat 09/16/2018 9: 49 AM CDT EKG 12-LEAD Stat 09/16/2018 9:33 AM CDT POC GLUCOSE Stat 09/16/2018 9:33 AM CDT TROPONIN BASELINE, 5TH GEN Stat 09/16/2018 9:30 AM CDT CBC WITH DIFFERENTIAL Stat 09/16/2018 9:30 AM CDT HCG QUANTITATIVE, BLOOD Stat 09/16/2018 9:30 AM CDT TSH Stat 09/16/2018 9:30 AM CDT CK Stat 09/16/2018 9:30 AM CDT COMPREHENSIVE METABOLIC PANEL Stat 09/16/2018 9:30 AM CDT documented in this encounter Results * XR CHEST PA AND LATERAL 2 VW (09/16/2018 2:28 PM CDT) Anatomical Region Laterality Modality Chest Computed Radiogr aphy 09/16/2018 2:32 PM CDT Impressions 09/16/2018 2:36 PM CDT IMPRESSION: 1. Negative chest. 2. No significant change since 09/10/2018. DICTATION LOCATION: Location [address] [place] [address] 09/16/2018 2:36 PM CDT PA AND LATERAL CHEST DATE: 09/16/2018 2:28 PM CLINICAL HISTORY: Chest and back pain. FINDINGS: Examination of the chest in PA and lateral views demonstrates the lungs to be clear. The cardiovascular and mediastinal silhouettes are within normal limits. The bony thorax is intact. Procedure Note Moose De La O MD - 09/16/2018 PA AND LATERAL CHEST DATE: 09/16/2018 2:28 PM CLINICAL HISTORY: Chest and back pain. FINDINGS: Examination of the chest in PA and lateral views demonstrates the lungs to be clear. The cardiovascular and mediastinal silhouettes are within normal limits. The bony thorax is intact. IMPRESSION: 1. Negative chest. 2. No significant change since 09/10/2018. DICTATION LOCATION: Location [address] [place] [address] Chitra Petit PA-C DIAGNOSTIC IMAG ING ORDERABLES * TROPONIN 2 HR, 5TH GEN (09/16/2018 1:45 PM CDT) Pathologist [facility] TROPONIN T, 2 HR 5TH GEN <6 <=10 ng/L 09/16/2018 2:32 PM CDT [facility] [employer] [facility] Blood Venipuncture / Unknown 09/16/2018 1:45 PM CDT 09/16/2018 1:54 PM CDT Narrative [facility] [employer] [facility] - 09/16/2018 2:32 PM CDT Troponin Undetectable Delay in collection of timed specimen beyond recommended collection interval. Results must be interpreted in clinical context. Unable to calculate delta. hCitra Petit PA-C CHEMISTRY ORDER ANAHI Performing Organization Address City/[facility]/ZIP Co de Phone Number [facility] [employer] [facility] CLIA# [id number] [place] [address] * D-DIMER (09/16/2018 1:45 PM CDT) Pathologist [facility] D-DIMER QUANT 0.34 <0.50 ug/mL FEU 09/16/2018 2:20 PM CDT [facility] [employer] [facility] Blood Venipuncture / Unknown 09/16/2018 1:45 PM CDT 09/16/2018 1:54 PM CDT Chitra Petit PA-C HEMATOLOGY ORDE RABLES [facility] [employer] [facility] CLIA# [id number] [place] [address] * (ABNORMAL) DRUG SCREEN, URINE (09/16/2018 9:49 AM CDT) [facility] AMPHETAMINE QUAL, URINE Negative Negative 09/16/2018 2:36 PM CDT [facility] BARBITURATE QUAL, URINE Negative Negative 09/16/2018 2:36 PM CDT [facility] BENZODIAZEPINE QUAL, URINE Negative Negative 09/16/2018 2:36 PM CDT [facility] COCAINE QUAL URINE Negative Negative 2018 2:36 PM CDT [facility] OPIATE QUAL, URINE Negative Negative 2018 2:36 PM CDT [facility] CANNABINOIDS QUAL, URINE Negative Negative 09/16/2018 2:36 PM CDT [facility] PCP QUAL, URINE Negative Negative 9 2:36 PM T [facility] OXYCODONE QUAL, URINE Negative Negative 09/16/2018 2:36 PM T [facility] METHADONE QUAL, URINE Negative Negative 09/16/2018 2:36 PM CDT [facility] CREATININE, URINE 280.2(H) 29.0 - 226.0 mg/dL 09/16/2018 2:36 PM T [facility] Comment: Reference Range varies with fluid intake and diet. Urine URINE SPECIMEN OBTAINED BY CLEAN CATCH PROCEDURE / Unknown Collection / Unknown 09/16/2018 9:49 AM CDT 09/16/2018 10:[address] [facility] - 09/16/2018 2:36 PM CDT This test is a qualitative screen. The presumptive positive results should not be used for legal purposes. If confirmation of results is desired, the lab must be contacted without delay. Drug ? Ref. Range ?Screening Threshold Amphetamines ?Negative ?500 ng/mL Barbiturates ?Negative ?200 ng/mL Benzodiazepines ? Negative ?100 ng/mL Cannabinoids ?Negative ? 50 ng/mL Cocaine ?Negative ?150 ng/mL Methadone ? Negative ?300 ng/mL Opiates ? Negative ?300 ng/mL Oxycodone ? Negative ?100 ng/mL Phencyclidine ? Negative ? 25 ng/mL ? Chitra Petit PA-C URINE ORDERABLE S Performing Organization Address [facility] de Phone Number [facility] [employer] [facility]# [id number] [place] [address] * EXTRA TUBE (URINE CONNER) (09/16/2018 9:49 AM CDT) Urine URINE SPECIMEN OBTAINED BY CLEAN CATCH PROCEDURE / Unknown Collection / Unknown 09/16/2018 9:49 AM CDT 09/16/2018 10:05 AM CDT Protocol [facility] MD URINE ORDERAB LES Performing Organization Address [facility] Co de Phone Number [facility] [employer] [facility]# [id number] [place] [address] * (ABNORMAL) URINALYSIS WITH REFLEX CULTURE (09/16/2018 9:49 AM CDT) COLOR UA Yellow Pale to Dark Yellow 09/16/2018 10:44 AM CDT [facility] [employer] [facility] CLARITY UA Slightly Cloudy(A) Clear 09/16/2018 10:44 AM CDT [facility] SPECIFIC GRAVITY UA 1.027 1.003 - 1.035 09/16/2018 10:44 AM CDT [facility] [employer] [facility] PH UA 5.0 5.0 - 8.0 09/16/2018 10:44 AM CDT [facility] LEUKOCYTE ESTERASE UA Negative Negative 09/16/2018 10:44 AM CDT [facility] [employer] [facility] NITRITE UA Negative Negative 09/16/2018 10:44 AM CDT [facility] [employer] [facility] PROTEIN UA 1+(A) Negative 09/16/2018 10:44 AM T [facility] [employer] [facility] GLUCOSE UA Negative Negative 09/16/2018 10:44 AM T [facility] KETONES UA Negative Negative 09/16/2018 10:44 AM T [facility] UROBILINOGEN UA Normal <2.0 mg/dL 9 10:44 AM T [facility] [employer] [facility] BILIRUBIN UA Negative Negative 09/16/2018 10:44 AM T [facility] [employer] [facility] BLOOD UA Negative Negative 09/16/2018 10:44 AM T [facility] WBC UA 3-5(A) 0 - 2 /hpf 09/16/2018 10:44 AM CDT [facility] RBC UA 3-5(A) 0 - 2 /hpf 09/16/2018 10:44 AM CDT [facility] BACTERIA UA 1+(A) Negative /hpf 09/16/2018 10:44 AM CDT [facility] EPITHELIAL CELLS, URINE 6-10(A) 0 - 5 /hpf 09/16/2018 10:44 AM T [facility] HYALINE CAST None Seen None Seen, 0-2 /lpf 09/16/2018 10:44 AM T [facility] Ascorbic Acid UA Negative Negative 09/17/19 19 10:44 AM T [facility] Urine URINE SPECIMEN OBTAINED BY CLEAN CATCH PROCEDURE / Unknown Collection / Unknown 09/16/2018 9:49 AM CDT 09/16/2018 10:05 AM CDT Protocol [facility] Emergency MD URINE ORDERAB LES Performing Organization Address City/[facility] Health/ZIP Co de Phone Number [facility] - [facility] CLIA# [id number] [place] [address] * EKG 12-LEAD (09/16/2018 9:33 AM CDT) VENTRICULAR RATE 97 BPM INTERFACE SYSTEM ATRIAL RATE 97 BPM INTERFAC E SYSTEM P-R INTERVAL 130 ms INTERFA CE SYSTEM QRS DURATION 70 ms INTERFA CE SYSTEM Q-T INTERVAL 328 ms INTERFA CE SYSTEM QTC CALCULATION(BEZ ET) 416 ms INTERFACE SYSTEM P AXIS 47 degrees INTERFACE SYSTEM R AXIS 51 degrees INTERFACE SYSTEM T AXIS 14 degrees INTERFACE SYSTEM RESULT Normal sinus rhythm Possible Left atrial enlargement Nonspecific ST abnormality Abnormal ECG When compared with ECG of 10-SEP-2018 10:40, No significant change was found Confirmed by TIMMY FAM ([id number]) on 09/16/2018 10:17:24 AM INTERFACE SYSTEM 09/16/2018 9:33 AM CDT 09/16/2018 10:17 AM CDT Protocol [facility] Emergency MD ECG ORDERABLE S Performing Organization Address [facility] de Phone Number INTERFACE SYSTEM Refer to clinic/hospital department * POC GLUCOSE (09/16/2018 9:33 AM CDT) GLUCOSE POC 87 74 - 99 mg/dL 09/16/2018 9:33 AM CDT [facility] LAB POINT OF CARE RESOURCE PROGRAM TEACHER NAME POC SILVA BOURGEOIS 09/16/2018 9:33 AM CDT [facility] POINT OF CARE Whole blood specimen (specimen) 09/16/2018 9:33 AM CDT 09/16/2018 9:35 AM CDT Interface Provider Poct POINT OF CARE TE STING Performing Organization Address City/[facility]/ZIP Co de Phone Number [facility] LAB POINT OF CARE CLIA # [id number] [place] [address] * TROPONIN BASELINE, 5TH GEN (09/16/2018 9:30 AM CDT) TROPONIN T, BASELINE 5TH GEN <6 <=10 ng/L 09/16/2018 2:07 PM CDT [facility] Blood Venipuncture / Unknown 09/16/2018 9:30 AM CDT 09/16/2018 9:36 AM CDT Narrative [facility] [employer] [facility] - 09/16/2018 2:07 PM CDT Troponin Undetectable Chitra Petit PA-C CHEMISTRY ORDER ANAHI [facility] CLIA# [id number] [place] [address] * (ABNORMAL) CK (09/16/2018 9:30 AM CDT) CK 15(L) 20 - 180 U/L 09/16/2018 2:10 PM CDT [facility] Blood Venipuncture / Unknown 09/16/2018 9:30 AM CDT 09/16/2018 9:36 AM CDT Chitra Petit PA-C CHEMISTRY ORDER ANAHI [facility] CLIA# [id number] [place] [address] * HCG QUANTITATIVE, BLOOD (09/16/2018 9:30 AM CDT) HCG QUANT, BLOOD <0.1 <=5.0 mIU/mL 09/16/2018 10:16 AM CDT [facility] Blood Venipuncture / Unknown 09/16/2018 9:30 AM CDT 09/16/2018 9:36 AM CDT Narrative [facility] [employer] [facility] - 09/16/2018 10:16 AM CDT Result of 5 - 25 mIU/mL is indeterminant for , repeat of test recommended in 48 hours. Reference Range: Gestational Age ? HCG Concentration 3 ??Weeks ?5.8 - 71.2 ? mIU/mL 4 ??Weeks ?9.5 - 750 ?mIU/mL 5 ??Weeks ?217 - 7138 ? mIU/mL 6 ??Weeks ?158 - 31,795 ?? mIU/mL 7 ??Weeks ? 3697 - 163,563 ??mIU/mL 8 ??Weeks ? 32,065 - 149,571 ??mIU/mL 9 ??Weeks ? 63,803 - 151,410 ??mIU/mL 10 Weeks ? 46,509 - 186,977 ??mIU/mL 12 Weeks ? 27,832 - 210,612 ??mIU/mL 14 Weeks ? 13,950 - 62,530 ?? mIU/mL 15 Weeks ? 12,039 - 70,971 ?? mIU/mL 16 Weeks ? 9040 - 56,451 ?? mIU/mL 17 Weeks ? 8175 - 55,868 ?? mIU/mL 18 Weeks ? 8099 - 58,176 ?? mIU/mL Heterophile antibodies and other interfering substances in the serum of some patients may cause a false-positive result in this assay. Before making a diagnosis of malignancy or ectopic , the result of this test should be confirmed with a urine HCG test and correlated with other clinical evidence. Protocol [facility] Emergency MD CHEMISTRY ORD ERABLES [facility]# [id number] [place] [address] * (ABNORMAL) TSH (09/16/2018 9:30 AM CDT) TSH 4.48(H) 0.27 - 4.20 uIU/mL 09/16/2018 10:16 AM CDT [facility] [place] Blood Venipuncture / Unknown 09/16/2018 9:30 AM CDT 09/16/2018 9:36 AM CDT Protocol [facility] Emergency MD CHEMISTRY ORD ERABLES [facility] SERVICES [place] CLIA# [id number] [place] [address] * COMPREHENSIVE METABOLIC PANEL (09/16/2018 9:30 AM CDT) Pathologist [facility] SODIUM 140 136 - 145 mmol/L 09/16/2018 10:02 AM CDT [facility] [place] POTASSIUM 3.7 3.4 - 5.1 mmol/L 09/16/2018 10:02 AM CDT [facility] [place] CHLORIDE 103 98 - 107 mmol/L 09/16/2018 10:02 AM CDT [facility] [place] CO2 24 22 - 29 mmol/L 09/16/2018 10:02 AM T [facility] [place] CALCIUM 9.5 8.6 - 10.4 mg/dL 09/16/2018 10:02 AM CDT [facility] [place] BUN 18 6 - 20 mg/dL 09/16/2018 10:02 AM T [facility] [place] CREATININE 0.72 0.50 - 1.00 mg/dL 09/16/2018 10:02 AM T [facility] [place] GLUCOSE 87 74 - 99 mg/dL 09/16/2018 10:02 AM T [facility] TOTAL PROTEIN 7.6 6.3 - 8.7 g/dL 09/16/2018 10:02 AM CDT [facility] ALBUMIN 4.1 3.5 - 5.2 g/dL 09/16/2018 10:02 AM CDT [facility] BILIRUBIN TOTAL 0.3 0.2 - 1.3 mg/dL 09/16/2018 10:02 AM T [facility] ALKALINE PHOSPHATASE 47 40 - 150 U/L 09/16/2018 10:02 AM CDT [facility] AST 16 0 - 33 U/L 09/16/2018 10:02 AM T [facility] ALT 15 0 - 33 U/L 09/16/2018 10:02 AM T [facility] GFR >60 >=60 mL/min/1.7 3 sq meter 09/16/2018 10:02 AM T [facility] Comment: eGFR has not been validated [...] GFR, >60 >=60 mL/min/1.7 3 sq meter 09/16/2018 10:02 AM CDT [facility] ANION GAP 13 8 - 16 mmol/L 09/16/2018 10:02 AM T [facility] Blood Venipuncture / Unknown 09/16/2018 9:30 AM CDT 09/16/2018 9:36 AM CDT Protocol [facility] Emergency MD CHEMISTRY ORD ERABLES [facility] CLIA# [id number] [place] [address] * (ABNORMAL) CBC WITH DIFFERENTIAL (09/16/2018 9:30 AM CDT) WBC 6.0 4.5 - 10.5 K/uL 09/16/2018 9:39 AM CDT [facility] RBC 4.43 3.90 - 4.90 M/uL 09/16/2018 9:[facility] HEMOGLOBIN 11.6(L) 11.8 - 14.8 g/dL 09/16/2018 9:39 [facility] HEMATOCRIT 35.5 35.5 - 44.0 % 09/16/2018 9:39 [facility] MCV 80.0(L) 82.0 - 99.0 fL 09/16/2018 9:39 [facility] MCH 26.2(L) 27.8 - 34.5 pg 09/16/2018 9:39 [facility] MCHC 32.8 32.5 - 35.5 g/dL 09/16/2018 9:39 AM [facility] RDW 18.4(H) 11.5 - 14.5 % 09/16/2018 9:39 AM CDT [facility] PLATELETS 325 160 - 420 K/uL 09/16/2018 9:39 AM [facility] MPV 7.6(L) 8.7 - 12.7 fL 09/16/2018 9:39 [facility] NEUTROPHILS 77(H) 45 - 70 % 09/16/2018 9:39 [facility] LYMPHOCYTES 17 16 - 45 % 09/16/2018 9:39 AM CDT [facility] MONOCYTES 5 3 - 13 % 09/16/2018 9:39 AM CDT [facility] EOSINOPHILS 0 0 - 7 % 09/16/2018 9:39 AM CDT [facility] [place] BASOPHILS 1 0 - 2 % 09/16/2018 9:39 AM CDT [facility] IMMATURE GRANULOCYTES 0 0 - 5 % 09/16/2018 9:39 [facility] NEUTROPHIL ABSOLUTE 4.60 1.90 - 7.00 K/uL 09/16/2018 9:39 AM CDT [facility] - [facility] LYMPHOCYTE ABSOLUTE 1.00 K/uL 09/16/2018 9:39 AM CDT [facility] MONOCYTE ABSOLUTE 0.30 K/uL 019 9:39 AM CDT [facility] EOSINOPHIL ABSOLUTE 0.00 0.00 - 0.70 K/uL 09/16/2018 9:39 AM CDT [facility] BASOPHILS ABSOLUTE 0.00 K/uL 09/16/2018 9:39 AM CDT [facility] IMMATURE GRANULOCYTES ABSOLUTE 0.00 K/uL 09/16/2018 9:39 AM CDT [facility] Blood Venipuncture / Unknown 09/16/2018 9:30 AM CDT 09/16/2018 9:33 AM CDT Protocol [facility] Emergency MD HEMATOLOGY OR DERABLES [facility] CLIA# [id number] [place] [address] documented in this encounter Visit Diagnoses Diagnosis Other chronic pain- Primary documented in this encounter Administered Medications Inactive Administered Medications - up to 3 most recent administrations Medication Order MAR Action Action Date Dose Rate Site ketorolac (TORADOL) injection 15 mg 15 mg, IV, ONE TIME ONLY, 1 dose, On Sun09/16/18 at 1600, Stat Given 09/16/2018 4:16 PM CDT 15 mg morphine 4 mg/mL injection 4 mg 4 mg, IV, ONE TIME ONLY, 1 dose, On Sun09/16/18 at 1315, Routine Given 09/16/2018 1:45 PM CDT 4 mg ondansetron (ZOFRAN) 4 mg/2 mL injection 4 mg 4 mg, IV, ONE TIME ONLY, 1 dose, On Sun09/16/18 at 1315, Routine Given 09/16/2018 1:45 PM CDT 4 mg sodium chloride 0.9% bolus solution 1,000 mL 1,000 mL, IV, ONE TIME ONLY, 1 dose, On Sun09/16/18 at 1315, at 2,000 mL/hr, Administer over 30 Minutes, Routine New Bag 09/16/2018 1:46 PM CDT 1,000 mL 2000 mL/hr documented in this encounter Active and Recently Administered Medications Times are shown in CDT. Scheduled Medication Order 09/14/2018 09/15/2018 09/16/2018 ketorolac (TORADOL) injection 15 mg (COMPLETED) 15 mg, IV, ONE TIME ONLY, 1 dose, On Sun09/16/18 at 1600, Stat 1616 (Given - Provid er: Saadia Wilson RN) morphine 4 mg/mL injection 4 mg (COMPLETED) 4 mg, IV, ONE TIME ONLY, 1 dose, On Sun09/16/18 at 1315, Routine 1345 (Given - Provid er: Saadia Wilson RN) ondansetron (ZOFRAN) 4 mg/2 mL injection 4 mg (COMPLETED) 4 mg, IV, ONE TIME ONLY, 1 dose, On Sun09/16/18 at 1315, Routine 1345 (Given - Provid er: Saadia Wilson RN) sodium chloride 0.9% bolus solution 1,000 mL (COMPLETED) 1,000 mL, IV, ONE TIME ONLY, 1 dose, On Sun09/16/18 at 1315, at 2,000 mL/hr, Administer over 30 Minutes, Routine 1346 (New Bag - Prov ider: Saadia Wilson RN)1416 (Stopped - Provider: Saadia Wilson RN) documented in this encounter Care Teams [employer] Technician Relationship Specialty Start Date End Date Huseyin Dangelo MD PCP - General 09/29/17 07/14/19 documented as of this encounter
--- OUTSIDE RECORDS SUMMARY | 2024-02-24 20:38 | XMS_ITS | Encounter Summary ---
Author Organization [facility] Address [address] [place] [address] Care Team Providers Care Staff Design Engineer Name Role Phone Brian Mon MD [...] documented as of this encounter Care Teams Staff Design Engineer Relationship Specialty Start Date End Date Brian Mon MD [id number] [place] [phone] PCP - General Internal Medicine 07/15/19 documented as of this encounter
--- OUTSIDE RECORDS SUMMARY | 2024-02-24 20:38 | XMS_ITS | Encounter Summary ---
Author Organization [facility] Address [address] [address] Care Team Providers Care Technology Instructor Name Role Phone Huseyin Dangelo MD Primary Care Provider [phone] Reason for Visit * Reason Comments Wrist Pain Pt had surgery on ri ght wrist on Sunday to repair median nerve that was origianlly 80% cut. Pt given hydrocodone from surgery and it makes the pt very nauseous. Pt states This pain is horrible, it takes my breath away at times and I don't want to eat. Pt with no feeling to first three digits due to originaly injury of slicing wrist on glass two weeks. Sutures of wound in place, no redness or increasing swelling, surgery wound appears to be healing well. Pt denies fever at this time. 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, right Discharge Disposition: Left Against Medical Advice Social [...] Sign Reading Time Taken Comments Blood Pressure 143/90 12/15/2018 2:55 PM CDT Pulse 100 12/15/2018 2:55 PM CDT Temperature 36.7 ??C (98.1 ??F) 12/15/2018 1:06 PM CD T Respiratory Rate 16 12/15/2018 2:55 PM CDT Oxygen Saturation 100% 12/15/2018 2:55 PM CDT Inhaled Oxygen Concentration - - Weight 65.8 kg (145 lb) 12/15/2018 1:06 PM CDT Height 157.5 cm (5' 2 ) 12/15/2018 1:06 PM CDT Body Mass Index 26.52 12/15/2018 1:06 PM CDT documented in this encounter Discharge Instructions * Attachments The following attachments cannot be sent through Care Everywhere. * Hand Pain (Cameroonian) * Carpal Tunnel Syndrome (Cameroonian) documented in this encounter Medications at [...] as of this encounter ED Notes * Bernarda Mcconnell RN - 12/15/2018 3:16 PM CDT Pt stating she does not want to wait for discharge papers and or prescriptions stating I will justhave my doctor call it in . Pt encouraged to wait for discharge paperwork, pt declining, ambulatorywith steady. * Bernarda Mcocnnell RN - 12/15/2018 3:14 PM CDT Pt stating she is ready to go. aware. * Bernarda Mcconnell RN - 12/15/2018 2:39 PM CDT Pt stating her ride is on the way. 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 Gimenez at bedside. * Bernarda Mcconnell RN - 12/15/2018 1:44 PM CDT Pt presents to ED with right wrist pain post median nerve repair on Sunday. Pt states prescribed hydrocodone is not working . Incision looks well approximated, no drainage and or redness. No fevers reported. * Najma Montanez RN - 12/15/2018 1:28 PM CDT Pt refusing pain medication up in triage at this time due to the fact that she has [facility] at home and they don't do anything. Pt also took an extra strength tylenol earlier today at home. * Cirilo Gimenez MD - 12/15/2018 1:02 PM CDT EMERGENCY DEPARTMENT ENCOUNTER Room Number: 2429/2429 PCP: Huseyin Dangelo MD Historian: patient HPI: Chief Complaint: hand pain Context: Carito Rausch is a 28 y.o. female who is right hand dominant. She states that about 2 weeks ago, she sustained right wrist laceration and 80% right median nerve laceration on glass. She reports that on 12/09/18, she followed up with hand surgeon, had the right median nerve surgically repaired, and wad discharged on norco. She notes that since the initial injury, she has had burning pain to her right hand, right 1st finger, right 2nd finger, and right 3rd finger but they have worsened since the surgery and are not being significantlly controlled with the norco. She also reports having nausea secondary to taking norco. She denies swelling/drainage/redness from her right wrist incision site, sensory loss, motor loss, fever, chills, vomiting, chest pain, and dyspnea. She states that she called her hand surgeon's office regarding her pain and was referred to ED for further evaluation. Additionally, she reports that she is scheduled to have the sutures removed from the right wrist incision on 12/23/18. Pt has no other complaints at this time. Location: right hand, right 1st finger, right 2nd finger, right 3rd finger Radiation: none Character: burning pain Duration: started about 2 weeks ago Severity: moderate Progression: worse Aggravating Factors: none Alleviating Factors: none PAST MEDICAL HISTORY Active Ambulatory Problems Diagnosis Date Noted ??? Myalgia, unspecified site 07/11/2018 ??? Arthralgia 07/11/2018 ??? Weakness 07/11/2018 ??? Lupus 07/11/2018 Resolved Ambulatory Problems Diagnosis Date Noted ??? No Resolved Ambulatory Problems Past Medical History: Diagnosis Date ??? Anxiety ??? Connective tissue disease ??? Depression ??? Fibromyalgia ??? HTN (hypertension) PAST SURGICAL HISTORY Past Surgical History: Procedure Laterality Date ??? HX APPENDECTOMY ??? HX MEDIAN NERVE REPAIR FAMILY HISTORY No family history on file. [...] status: Former Smoker Packs/day: 0.25 Types: Cigarettes Last attempt to quit: 12/11/2017 Years since quittin.0 ??? Smokeless tobacco: Never Used Substance and Sexual Activity ??? Alcohol use: Yes Comment: socially ??? Drug use: Yes Types: Marijuana, Cocaine Comment: one time use 12/2017 ??? Sexual activity: Not on file Lifestyle [...] Social History Narrative ??? Not on file ALLERGIES Methylprednisolone REVIEW OF SYSTEMS Review of Systems Constitutional: Negative for chills and fever. HENT: Negative for sore throat. Eyes: Negative for visual disturbance. Respiratory: Negative for shortness of breath. Cardiovascular: Negative for chest pain. Gastrointestinal: Positive for nausea (secondary to taking norco). Negative for vomiting. Genitourinary: Negative for dysuria. Musculoskeletal: Negative for back pain. Pain to right hand, right 1st finger, right 2nd finger, and right 3rd finger Neurological: Negative for weakness and numbness. Psychiatric/Behavioral: The patient is not nervous/anxious. All other systems reviewed and are negative. PHYSICAL EXAM ED Triage Vitals [12/15/18 1306] Enc Vitals Group BP (!) 139/98 Pulse (!) 105 Resp 20 Temp 98.1 ??F (36.7 ??C) Temp src Oral SpO2 99 % Weight 145 lb Height 5' 2 Head Circumference Peak Flow Pain Score Pain Loc Pain Edu? Excl. in GC? Physical Exam Vitals signs and nursing note reviewed. Constitutional: General: She is not in acute distress. HENT: Head: Normocephalic. Eyes: Extraocular Movements: Extraocular movements intact. Neck: Musculoskeletal: Normal range of motion and neck supple. Cardiovascular: Rate and Rhythm: Normal rate and regular rhythm. Pulmonary: Effort: Pulmonary effort is normal. No respiratory distress. Breath sounds: Normal breath sounds. Musculoskeletal: Comments: Tenderness to the palmar aspects of the right thumb, right 2nd finger, and right 3rd finger; tenderness to the median aspect of the right hand/right forearm; NV intact distally to RUE; incision to the right wrist appears clean, dry, and intact without erythema or swelling Skin: General: Skin is warm and dry. Neurological: General: No focal deficit present. Mental Status: She is alert and oriented to person, place, and time. Sensory: No sensory deficit. Motor: No weakness. Psychiatric: Mood and Affect: Mood normal. LAB RESULTS No results found for this or any previous visit (from the past 24 hour(s)). Ordered the above labs and reviewed the results. RADIOLOGY No orders to display Ordered the above noted radiological studies. Reviewed by me. PROCEDURES Procedures Pulse oximetry interpreted by me: 100% on room air. Impression: no hypoxia. Rhythm strip interpreted by me: sinus tachycardia, rate 100. No arrhythmias MEDICATIONS GIVEN IN ER Medications - No data to display PROGRESS AND CONSULTS 1428- Discussed with pt about plan to prescribe antiemetic, short course of pain medication (percocet), and gabapentin for nerve pain. Strongly advised pt against taking norco or tramadol while on percocet and gabapentin. Instructed pt to follow up closely with PMD and referred hand specialist or her hand surgeon for recheck and for further management. Provided discharge instructions for hand pain and carpal tunnel syndrome. Strict RTER warnings given. Pt verbalizes understanding and agreement with plan. Addressed all questions. 1524- Pt left without discharge documents. MEDICAL DECISION MAKING MDM Summary Statement: This is an unfortunate young woman who appears to be having median nerve pain following a procedureto repair of the right median nerve. She has been intermittently taking her hydrocodone. Does not appear to be any muscle involvement and this is mostly sensory. I did attempt to send the patient fora second opinion from another hand surgeon I have also recommended Neurontin and increasing her pain medication to oxycodone if needed. Apparently the patient did not wait for her discharge instructions or medications. She has left without these and against my medical advice. I have reviewed nursing notes related to past medical history, social history, and review of systems and agree, unless otherwise noted. 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 Certainly mayreturn at any time for these would begin Neurontin Zofran and oxycodone if needed. Follow-up with hand surgery within the next 3 to 4 days. Continue with current care DISPOSITION, EDUCATION AND MEDICATION RECONCILIATION Medications reconciled. See after visit summary for patient education on discharged patients. DISPOSITION [place]CHAR[place] [address] [facility] [address] [facility] [address] In 3 [place] [address] [facility] [address] [facility] [address] In 3 days DISCHARGE MEDICATIONS Medication List START taking these medications gabapentin 300 mg capsule Commonly known as: NEURONTIN Please begin 1 capsule daily x1 day, then 1 capsule twice daily x1 day, then start 1 capsule 3 times daily. Signed by: Cirilo Gimenez MD Quantity: 45 Capsule Refills: 0 ondansetron 4 mg Tablet, Rapid Dissolve Commonly known as: ZOFRAN ODT Take 1 Tablet (4 mg) by mouth every 8 hours as needed for Nausea/Emesis. Dissolve tablet on top of tongue, then swallow with saliva. Signed by: Cirilo Gimenez MD Quantity: 12 Tablet Refills: 0 oxyCODONE-acetaminophen 5-325 mg tablet Commonly known as: PERCOCET Take 1 to 2 tablets every 6-8 hours as needed for pain control. Signed by: Cirilo Gimenez MD Quantity: 15 Tablet Refills: 0 CONTINUE taking these medications acetaminophen 500 mg tablet Commonly known as: TYLENOL Take 500 mg by mouth every 6 hours as needed. Refills: 0 ALPRAZolam 0.25 mg tablet Commonly known as: XANAX Take 0.25 mg by mouth 3 times daily as needed for Anxiety. Refills: 0 CELLCEPT 250 mg Capsule Take 250 mg by mouth 2 times daily. Refills: 0 Generic drug: mycophenolate mofetil cyclobenzaprine 10 mg tablet Commonly known as: FLEXERIL Take 1 Tablet (10 mg) by mouth 3 times daily as needed for Spasm. Signed by: Chitra Petit PA-C Quantity: 12 Tablet Refills: 0 HYDROcodone-acetaminophen 5-325 mg tablet Commonly known as: NORCO Take 1 Tablet by mouth every 4 hours as needed for Pain. Max Daily Amount: 6 Tablets Signed by: Jackson Madsen MD Quantity: 20 Tablet Refills: 0 hydroxychloroquine 200 mg tablet Commonly known as: PLAQUENIL Take 200 mg by mouth daily. Refills: 0 ketorolac tromethamine 10 mg tablet Commonly known as: TORADOL Take 1 Tablet (10 mg) by mouth every 6 hours as needed for Pain, Mild. Signed by: Sudheer Trammell PA-C Quantity: 20 Tablet Refills: None leflunomide 20 mg Tablet Commonly known as: ARAVA Take 20 mg by mouth. Refills: 0 Lidocaine 4 % Adhesive Patch, Medicated Commonly known as: LIDOCAINE PAIN RELIEF Apply one patch to painful area every 24 hours. Signed by: Chitra Petit PA-C Quantity: 5 Patch Refills: 0 omeprazole 20 mg Capsule, Delayed Release(E.C.) Commonly known as: PriLOSEC Take 20 mg by mouth daily. Refills: 0 ondansetron 4 mg Tablet Commonly known as: ZOFRAN Take 1 Tablet (4 mg) by mouth every 8 hours as needed for Nausea. Signed by: TSERING Miller Quantity: 15 Tablet Refills: None predniSONE 10 mg tablet Commonly known as: DELTASONE Take 10 mg by mouth 2 times daily with meals. Refills: 0 valACYclovir 1 gram tablet Commonly known as: VALTREX Take 1,000 mg by mouth 2 times daily. Refills: 0 Where to Get Your Medications Please take the prescriptions given to you during your stay and have them filled at any pharmacy. Bring a paper prescription for each of these medications ?? gabapentin 300 mg capsule ?? ondansetron 4 mg Tablet, Rapid Dissolve ?? oxyCODONE-acetaminophen 5-325 mg tablet Latest Documented Vital Signs: As of 3:23 PM BP (!) 143/90 (BP Location: Left arm, Patient Position (BP): Sitting) Pulse 100 Temp 98.1 ??F (36.7 ??C) (Oral) Resp 16 Ht 5' 2 (1.575 m) Wt 65.8 kg (145 lb) SpO2 100% BMI 26.52 kg/m?? -- This note is prepared by Jan Montemayor acting as a scribe for Dr. Gimenez. The scribe's documentation has been prepared under my direction and personally reviewed by me in its entirety. I confirm that the note above accurately reflects all work, treatment, procedures, and medical decision making performed by me. Signed by Dr. 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
--- OUTSIDE RECORDS SUMMARY | 2024-02-24 20:38 | XMS_ITS | Encounter Summary ---
Author Organization [facility] Address [address] [place] [address] Care Team Providers Care Resolution Agent Name Role Phone Brian Mon MD [...] documented as of this encounter Care Teams Resolution Agent Relationship Specialty Start Date End Date Brian Mon MD [address] [place] [id number] PCP - General Internal Medicine 07/15/19 documented as of this encounter
--- OUTSIDE RECORDS SUMMARY | 2024-02-24 20:38 | XMS_ITS | Encounter Summary ---
Author Organization [facility] Address [address] [place] [address] Care Team Providers Care Clinical Documentation Consultant Name Role Phone Brian Mon MD [...] as of this encounter Care Teams Clinical Documentation Consultant Relationship Specialty Start Date End Date Brian Mon MD [address] [place] [id number] PCP - General Internal Medicine 07/15/19 documented as of this encounter
--- OUTSIDE RECORDS SUMMARY | 2024-02-24 20:38 | XMS_ITS | Encounter Summary ---
Author Organization [facility] Address [address] [place] [address] Care Team Providers Care Cryptologic Support Specialist Name Role Phone Huseyin Dangelo MD Primary Care Provider [phone] Encounter Details Date Type Department Care Team (Late st Contact Info) Description 05/28/2019 Nurse Triage [facility] Nurse strategy consultant [address] [place] [address] Yodit Waldron RN Social History Tobacco Use Types Packs/Day [...] on filedocumented in this encounter Care Teams Cryptologic Support Specialist Relationship Specialty Start Date End Date Huseyin Dangelo MD PCP - General 09/29/17 07/14/19 documented as of this encounter
--- OUTSIDE RECORDS SUMMARY | 2024-02-24 20:38 | XMS_ITS | Encounter Summary ---
Author Organization [facility] Address [address] [place] [address] Care Team Providers Care Crystal Cutter Name Role Phone Huseyin Dangelo MD Primary Care Provider [phone] Reason for Visit * Reason Onset Date Comments Needs Community Resources 12/31/2018 Encounter Details Date Type Department Care Team (Late st Contact Info) Description 12/31/2018 Patient Outreach [facility] [id number] [place] [phone] Amy Gutierres [address] [place], [place] [id number] Needs Community Resources Social History Tobacco Use Types Packs/Day Years [...] on filedocumented in this encounter Care Teams Crystal Cutter Relationship Specialty Start Date End Date Huseyin Dangelo MD PCP - General 09/29/17 07/14/19 documented as of this encounter
--- OUTSIDE RECORDS SUMMARY | 2024-02-24 20:38 | XMS_ITS | Encounter Summary ---
Author Organization [facility] Address [address] [place] [address] Care Team Providers Care Lockstitch Zipper Setter Name Role Phone Huseyin Dangelo MD Primary Care Provider [phone] Reason for Visit * Reason Onset Date Comments Fever 05/23/2019 Encounter Details Date Type Department Care Team (Late st Contact Info) Description 05/23/2019 Nurse Triage [facility] Nurse recreation program specialist [address] [place] [address] Lizzie Peterson RN Social History Tobacco Use Types Packs/Day [...] encounter Miscellaneous Notes * Telephone Encounter - Lizzie Peterson RN - 05/23/2019 5:33 PM CDT Patient requesting test sooner than already scheduled. There are no earlier appts unless she would drive to [facility]. She will keep her present appt on 05/28/19 in [place]. documented in this encounter Plan of Treatment Not on file documented as of this encounter Visit Diagnoses Not on filedocumented in this encounter Care Teams Lockstitch Zipper Setter Relationship Specialty Start Date End Date Huseyin Dangelo MD PCP - General 09/29/17 07/14/19 documented as of this encounter
--- OUTSIDE RECORDS SUMMARY | 2024-02-24 20:38 | XMS_ITS | Encounter Summary ---
Author Organization [facility] Address [address] [place] [address] Care Team Providers Care Services Program Manager Name Role Phone Huseyin Dangelo MD Primary Care Provider [phone] Reason for Visit * Reason Comments Arm pain pt returns to the ER with complaints of worsening chronic pain. Denies new injury or fall. Complains of (L) arm pain that shoots to her head. reports 20/10 pain. AXO3. NAD. Headache Encounter Details Date Type Department Care Team (Late st Contact Info) Description 09/17/2018 8:09 AM CDT - 09/17/2018 8:33 AM CDT Emergency [facility] Emergency Department [address] [place] [id number] Discharge Disposition: Left without being seen Social [...] Sign Reading Time Taken Comments Blood Pressure 122/52 09/17/2018 8:14 AM CDT Pulse - - Temperature 36.7 ??C (98.1 ??F) 09/17/2018 8:14 AM CD T Respiratory Rate 18 09/17/2018 8:14 AM CDT Oxygen Saturation 100% 09/17/2018 8:14 AM CDT Inhaled Oxygen Concentration - - Weight 61.2 kg (135 lb) 09/17/2018 8:14 AM CDT Height 172.7 cm (5' 8 ) 09/17/2018 8:14 AM CDT Body Mass Index 20.53 09/17/2018 8:14 AM CDT documented in this encounter Medications at Time of Discharge Medication Sig Dispensed Refills Start Date End Date hydroxychloroquine (PLAQUENIL) 200 mg tablet Take 200 mg by mouth daily. valACYclovir (VALTREX) 1 gram tablet Take 1,000 mg by mouth 2 times daily. 04/27/2020 documented as of this encounter ED Notes * Sara Galvez RN - 09/17/2018 8:31 AM CDT Pt is not saying this is fucking awful, she's putting me in the fucking wafting room. I don't wantto stay, Grandma . Pt then walked to waiting room, grabbed her phone from her grandma and ran across the parking lot. * Sara Galvez RN - 09/17/2018 8:26 AM CDT Pt states she thinks this is a possible pinched nerve and requests a MRI. This RN spoke with ED MD and explained to pt that MRI are typically not done via ED. Blood work is not needed again today, per MD. Pt is requesting her Grandmother to call Dr Interiano to leave now and see him today. Pt to be placed in WR at this time. * Sara Galvez RN - 09/17/2018 8:16 AM CDT C/o of L side neck, back, arm pain with swelling. Pt states she took a bunch of flexeril today and pain medication and is feeling better now. Pt states she feels like there is something wrong and she can hardly get out of bed. Pt is now requesting to stand up because her back is hurting her. documented in this encounter Plan of Treatment Not on file documented as of this encounter Visit Diagnoses Not on filedocumented in this encounter Care Teams Services Program Manager Relationship Specialty Start Date End Date Huseyin Dangelo MD PCP - General 09/29/17 07/14/19 documented as of this encounter
--- OUTSIDE RECORDS SUMMARY | 2024-02-24 20:38 | XMS_ITS | Encounter Summary ---
Author Organization [facility] Address [address] [place] [address] Care Team Providers Care Jawbone Breaker Name Role Phone Huseyin Dangelo MD Primary Care Provider [phone] Reason for Visit * Reason Comments Arm pain patient comes in wit h pain to her surgical site. she was here this morning and left. * Auth/Cert Specialty Diagnoses / Procedures Referred By Jud freeman Referred To Contact Emergency Medicine [facility] Emergency Department [address] [place] [address] Referral ID Status Reason Start Date Expiration Date Visits Re quested Visits Authorized [id number] 1 1 Encounter Details Date Type Department Care Team (Late st Contact Info) Description 12/23/2018 12:32 AM CDT - 12/23/2018 3:01 AM CDT Emergency [facility] Emergency Department [id number] [place] [address] [place] [address] [place] [address] Median nerve neuropathy, unspecified laterality (Primary Dx); Neuropathic pain Discharge Disposition: Home or Self Care Social [...] Sign Reading Time Taken Comments Blood Pressure 139/92 12/22/2018 11:26 PM CDT Pulse - - Temperature 36.5 ??C (97.7 ??F) 12/22/2018 11:26 PM C DT Respiratory Rate 16 12/22/2018 11:26 PM CDT Oxygen Saturation 98% 12/22/2018 11:26 PM CDT Inhaled Oxygen Concentration - - Weight 63.5 kg (140 lb) 12/22/2018 11:26 PM CDT Height 157.5 cm (5' 2 ) 12/22/2018 11:26 PM CDT Body Mass Index 25.61 12/22/2018 11:26 PM CDT documented in this encounter Discharge Instructions * Attachments The following attachments cannot be sent through Care Everywhere. * Neuropathic Pain (Citizen Of [place]) documented in [...] area daily for 3 days. 12/23/2018 12/26/2018 valACYclovir (VALTREX) 1 gram tablet Take 1,000 mg by mouth 2 times daily. 04/27/2020 documented as of this encounter ED Notes * Nina Cornejo RN - 12/23/2018 3:00 AM CDT Patient discharged home with instructions and prescriptions. No further questions at this time. * Hardy Bynum MD - 12/22/2018 11:25 PM CDT History of Present Illness Carito Rausch is a 28 y.o. female Primary Care Doctor: Huseyin Dangelo MD Hx obtained from: Patient Pt accompanied by: Family Limitations to hx/exam: N/A Chief Complaint: Arm pain Pt with PMHx lupus presents to the ED c/o right hand pain. Patient had 80% of the median nerve cut 2 weeks ago and connected back again with surgery. Patient reports pain since the operation, gettingworse. The pain goes into her hand and fingers. She reports vomiting secondary to the pain. She also reports that her hand and fingers are swelling and feel like they are going to burst. She has beentaking hydrocodone and xanax with no improvement. Symptoms are worse with movement. No prior h/o similar. Relevant Medical History Past Medical History: Past Medical History: Diagnosis Date ??? Anxiety ??? Connective tissue disease ??? Depression ??? Fibromyalgia ??? HTN (hypertension) ??? Lupus Past Surgical History: Past Surgical History: Procedure Laterality Date ??? HX APPENDECTOMY ??? HX MEDIAN NERVE REPAIR Home Medications: No current facility-administered medications on file prior to encounter. Current Outpatient Medications on File Prior to Encounter Medication Sig Dispense Refill ??? omeprazole (PriLOSEC) 20 mg Capsule, Delayed Release(E.C.) Take 20 mg by mouth daily. ??? leflunomide (ARAVA) 20 mg Tablet Take 20 mg by mouth. ??? acetaminophen (TYLENOL) 500 mg tablet Take 500 mg by mouth every 6 hours as needed. ??? oxyCODONE-acetaminophen (PERCOCET) 5-325 mg tablet Take 1 to 2 tablets every 6-8 hours as needed for pain control. 15 Tablet 0 ??? ondansetron (ZOFRAN ODT) 4 mg Tablet, Rapid Dissolve Take 1 Tablet (4 mg) by mouth every 8 hours as needed for Nausea/Emesis. Dissolve tablet on top of tongue, then swallow with saliva. 12 Tablet0 ??? gabapentin (NEURONTIN) 300 mg capsule Please begin 1 capsule daily x1 day, then 1 capsule twicedaily x1 day, then start 1 capsule 3 times daily. 45 Capsule 0 ??? Lidocaine (LIDOCAINE PAIN RELIEF) 4 % Adhesive Patch, Medicated Apply one patch to painful areaevery 24 hours. 5 Patch 0 ??? cyclobenzaprine (FLEXERIL) 10 mg tablet Take 1 Tablet (10 mg) by mouth 3 times daily as needed for Spasm. 12 Tablet 0 ??? mycophenolate mofetil (CELLCEPT) 250 mg Capsule Take 250 mg by mouth 2 times daily. ??? predniSONE (DELTASONE) 10 mg tablet Take 10 mg by mouth 2 times daily with meals. ??? ketorolac tromethamine (TORADOL) 10 mg tablet Take 1 Tablet (10 mg) by mouth every 6 hours as needed for Pain, Mild. 20 Tablet None ??? ALPRAZolam (XANAX) 0.25 mg tablet Take 0.25 mg by mouth 3 times daily as needed for Anxiety. ??? hydroxychloroquine (PLAQUENIL) 200 mg tablet Take 200 mg by mouth daily. ??? ondansetron (ZOFRAN) 4 mg Tablet Take 1 Tablet (4 mg) by mouth every 8 hours as needed for Nausea. 15 Tablet None ??? HYDROcodone-acetaminophen (NORCO) 5-325 mg tablet Take 1 Tablet by mouth every 4 hours as needed for Pain. Max Daily Amount: 6 Tablets 20 Tablet 0 ??? valACYclovir (VALTREX) 1 gram tablet Take 1,000 mg by mouth 2 times daily. Allergies: Allergies Allergen Reactions ??? Methylprednisolone Syncope Social History: Social History Tobacco Use ??? Smoking status: Former Smoker Packs/day: 0.25 Types: Cigarettes Last attempt to quit: 12/11/2017 Years since quittin.0 ??? Smokeless tobacco: Never Used Substance Use Topics ??? Alcohol use: Yes Comment: socially ??? Drug use: Yes Types: Marijuana, Cocaine Comment: one time use 12/2017 Family History: No family history on file. Review of Systems Review of Systems Constitutional: Negative for activity change, appetite change, chills, diaphoresis, fatigue and fever. HENT: Negative for rhinorrhea and sore throat. Respiratory: Negative for cough, choking, chest tightness and shortness of breath. Cardiovascular: Negative for chest pain and palpitations. Gastrointestinal: Positive for vomiting. Negative for abdominal distention and abdominal pain. Genitourinary: Negative for difficulty urinating, dysuria, flank pain and frequency. Musculoskeletal: Negative for arthralgias, back pain, gait problem and joint swelling. Positive for right hand/ finger pain and swelling Neurological: Negative for dizziness, seizures and headaches. Psychiatric/Behavioral: Negative for agitation and behavioral problems. Physical Exam BP: (!) 139/92 (12/22/18 2326), Heart Rate: 90 bpm (12/22/182325), Resp: 16 (12/22/182325), Temp:97.7 ??F (36.5 ??C) (12/22/182325), Temp src: Oral (12/22/182325), SpO2: 98 % (12/22/182325), Height: 5' 2 (157.5 cm) (12/22/182325), Weight: 63.5 kg (140 lb) (12/22/182325), BMI (Calculated): 25.6 (12/22/182325) Physical Exam Constitutional: General: She is not [...] Breath sounds: Normal breath sounds. No stridor. Abdominal: General: Bowel sounds are normal. Palpations: Abdomen is soft. Musculoskeletal: Normal range of motion. Comments: Weak yard pilot in right hand. Skin: General: Skin is warm and dry. Comments: Well healing laceration to the right wrist with scar tissue present. Neurological: Mental Status: She is alert. Cranial Nerves: No cranial nerve deficit. Comments: Decreased sensation in the index and middle finger on right hand. Psychiatric: Behavior: Behavior normal. Pulse Oximetry Interpretation: Saturation: 98% on room air Interpretation: No hypoxia Rhythm Strip Interpretation Sinus rhythm, no arrhythmia Ventricular Rate: 90 BPM Medical Decision Making and ED Course Medical Decision Making: Dx: Arm Pain DDx: Neuropathic pain, impinged nerve, other Plan for symptomatic treatment Patient's symptoms are concerning for neuropathic pain, she has tried multiple pain medications without relief. Per chart review she was seen here a few days ago and and discharged with gabapentin, however she left without her papers. She does not seem interested in further narcotic pain management, she says the Ashkum pills do not help at all. Discussed at length with her possible options, includi ng a Toradol shot here for anti-inflammatory and pain control, as well as 5% lidocaine ointment andcapsaicin ointment as possible adjunct therapies. Will try these therapies here, and discharged with a prescription for gabapentin to use instead of her Lyrica. She is not horribly keen to follow-up with her current hand surgeon, as she thinks something may have gone wrong with the surgery. I explained her that she is more than welcome to pursue second opinions, although I do not think I can get her an appointment with anybody quickly. Also offered to follow-up with pain management, although she Wally has a person that she could use if needed. Procedure: N/A Final Diagnoses: Final diagnoses: None Dispo: Discharge home. Critical care provided: N/A Studies and Interpretation Imaging (pertinent imaging was independently reviewed by Jose Eduardo Bynum MD): No orders to display Lab: (pertinent labs reviewed by Jose Eduardo Bynum MD), Significant for: Labs Reviewed - No data to display Note: This H+P was created with the aid of dictation software, thus there may be some word substitutions or errors. This note is prepared by Leonora Barrientos acting as a scribe for Dr. Hardy Bynum. The scribe's documentation has been prepared under my direction and personally reviewed by me in its entirety. I confirm that the note above accurately reflects all work, treatment, procedures, and medical decision making performed by me. documented in this encounter Plan of Treatment Not on file documented as of this encounter Visit Diagnoses Diagnosis Median nerve neuropathy, unspecified laterality- Primary Neuropathic pain Neuralgia, neuritis, and radiculitis, unspecified documented in this encounter Administered Medications Inactive Administered Medications - up to 3 most recent administrations Medication Order MAR Action Action Date Dose Rate Site capsaicin (ZOSTRIX) 0.025 % topical cream Topical, FOUR TIMES DAILY, First dose (after last modification) on Sun12/23/18 at 0145, Until Discontinued, Routine ketorolac (TORADOL) injection 15 mg 15 mg, IM, ONE TIME ONLY, 1 dose, On Sun12/23/18 at 0130, Routine Given 12/23/2018 1:45 AM CDT 15 mg Arm, Left Upper lidocaine (XYLOCAINE) 5 % ointment Topical, ONE TIME ONLY, 1 dose, On Sun12/23/18 at 0130, Routine Given 12/23/2018 1:30 AM CDT Wrist, Right documented in this encounter Active and Recently Administered Medications Times are shown in CDT. Scheduled Medication Order 12/21/2018 12/22/2018 12/23/2018 capsaicin (ZOSTRIX) 0.025 % topical cream Topical, FOUR TIMES DAILY, First dose (after last modification) on Sun12/23/18 at 0145, Until Discontinued, Routine 0145 (Due) ketorolac (TORADOL) injection 15 mg (COMPLETED) 15 mg, IM, ONE TIME ONLY, 1 dose, On Sun12/23/18 at 0130, Routine 0145 (Given - Provid er: Nina Cornejo RN) lidocaine (XYLOCAINE) 5 % ointment (COMPLETED) Topical, ONE TIME ONLY, 1 dose, On Sun12/23/18 at 0130, Routine 0130 (Given - Provid er: Nina Cornejo RN) documented in this encounter Care Teams Jawbone Breaker Relationship Specialty Start Date End Date Huseyin Dangelo MD PCP - General 09/29/17 07/14/19 documented as of this encounter
--- OUTSIDE RECORDS SUMMARY | 2024-02-24 20:38 | XMS_ITS | Encounter Summary ---
Author Organization [facility] Address [address] [place] [address] Care Team Providers Care Drapery Cutter Name Role Phone Huseyin Dangelo MD Primary Care Provider Reason for Referral * MRI (Routine) - Closed Specialty Diagnoses / Procedures Referred By Contac t Referred To Contact MRI Diagnoses Low back pain, unspecified back pain laterality, unspecified chronicity, with sciatica presence unspecified Procedures MRI [place] [address] [facility] [address] [place] [address] [facility] [place] [address] [place] [address] Referral ID Status Reason Start Date Expiration Date V isits Requested Visits Authorized [id number] Closed [facility] CTS 09/17/2018 10/18/2019 1 1 Reason for Visit * Auth/Cert Specialty Diagnoses / Procedures Referred By Contac t Referred To Contact MRI [facility] [place] [address] [place] [address] Referral ID Status Reason Start Date Expiration Date Visits Re quested Visits Authorized [id number] 1 1 Encounter Details Date Type Department Care Team (Latest Contact Info) Description 09/18/2018 10:52 AM CDT - 09/18/2018 11:59 PM CDT Hospital Encounter [facility] [place] [address] [place] [address] [place] [address] [place] [address] Discharge Disposition: Home or Self [...] Name Priority Date/Time Associated Diagnosis Comments MRI LUMBAR WO CONTRAST Routine 09/18/2018 12:09 PM CDT Low back pain, unspecified back pain laterality, unspecified chronicity, with sciatica presence unspecified documented in this encounter Results * MRI LUMBAR WO CONTRAST (09/18/2018 12:09 PM CDT) Anatomical Region Laterality Modality Spine Magnetic Resonan ce 09/18/2018 12:0 9 PM CDT Impressions 09/18/2018 4:37 PM CDT IMPRESSION: Disc bulge with central herniation at L3-L4, L4-L5 and L5-S1. DICTATION LOCATION: Location 1 - [facility] Narrative 09/18/2018 4:37 PM CDT MRI LUMBAR SPINE WITHOUT CONTRAST DATE: 09/18/2018 12:09 PM HISTORY: See Diagnosis. ?? Low back pain, unspecified back pain laterality, unspecified chronicity, with sciatica presence unspecified COMPARISON: None. ?? TECHNIQUE: Multiplanar multisequence MR lumbar spine without contrast. Counting of vertebral segments is estimated from several anatomical factors within the field of view. X ray correlation to confirm the level is recommended prior to any surgical intervention. FINDINGS: Normal curvature of the lumbar spine is maintained. No marrow edema is identified. Conus terminates at L1. Atypical vertebral body hemangioma seen at L2. Distal cord and conus signal intensity is normal. Visualized portions of the abdomen and pelvis do not reveal significant mass or lymphadenopathy. T12-L1, L1-L2, L2-L3: No disc bulge. No foraminal or canal stenosis identified. L3-L4: Mild diffuse disc bulge with small central and right paracentral disc herniation. Mild bilateral facet hypertrophy seen. No canal stenosis. No foraminal stenosis. L4-L5: There is diffuse disc bulge with small central annular tear and central herniation. Bilateral facet hypertrophy. No canal stenosis. No foraminal stenosis. L5-S1: There is diffuse disc bulge with small central herniation. Bilateral facet hypertrophy. No foraminal or canal stenosis identified. Procedure Note Eva Bell MD - 09/18/2018 MRI LUMBAR SPINE WITHOUT CONTRAST DATE: 09/18/2018 12:09 PM HISTORY: See Diagnosis. Low back pain, unspecified back pain laterality, unspecified chronicity, with sciatica presence unspecified COMPARISON: None. TECHNIQUE: Multiplanar multisequence MR lumbar spine without contrast. Counting of vertebral segments is estimated from several anatomical factors within the field of view. X ray correlation to confirm the level is recommended prior to any surgical intervention. FINDINGS: Normal curvature of the lumbar spine is maintained. No marrow edema is identified. Conus terminates at L1. Atypical vertebral body hemangioma seen at L2. Distal cord and conus signal intensity is normal. Visualized portions of the abdomen and pelvis do not reveal significant mass or lymphadenopathy. T12-L1, L1-L2, L2-L3: No disc bulge. No foraminal or canal stenosis identified. L3-L4: Mild diffuse disc bulge with small central and right paracentral disc herniation. Mild bilateral facet hypertrophy seen. No canal stenosis. No foraminal stenosis. L4-L5: There is diffuse disc bulge with small central annular tear and central herniation. Bilateral facet hypertrophy. No canal stenosis. No foraminal stenosis. L5-S1: There is diffuse disc bulge with small central herniation. Bilateral facet hypertrophy. No foraminal or canal stenosis identified. IMPRESSION: Disc bulge with central herniation at L3-L4, L4-L5 and L5-S1. DICTATION LOCATION: Location 1 - [facility] Huseyin Dangelo MD MR ORDERABLES documented in this encounter Visit Diagnoses Diagnosis Low back pain, unspecified back pain laterality, unspecified chronicity, with sciatica presence unspecified documented in this encounter Care Teams Drapery Cutter Relationship Specialty Start Date End Date Huseyin Dangelo MD PCP - General 09/29/17 07/14/19 documented as of this encounter
--- OUTSIDE RECORDS SUMMARY | 2024-02-24 20:38 | XMS_ITS | Encounter Summary ---
Author Organization [facility] Address [address] [place] [address] Care Team Providers Care Pulp Tester Name Role Phone Brian Mon MD Primary Care Provider [phone] Encounter Details Date Type Department Care Team [...] documented as of this encounter Care Teams Pulp Tester Relationship Specialty Start Date End Date Brian Mon MD [address] [place] [phone] PCP - General Internal Medicine 07/15/19 documented as of this encounter
--- OUTSIDE RECORDS SUMMARY | 2024-02-24 20:38 | XMS_ITS | Encounter Summary ---
Author Organization [facility] Address [address] [place] [address] Care Team Providers Care Montessori Program Director Name Role Phone Huseyin Dangelo MD Primary Care Provider Encounter Details Date Type Department Care Team (Late st Contact Info) Description 05/27/[address] [address] Мария Delgado FNP [address] [place] [id number] Social History Tobacco Use Types Packs/Day Years [...] Telephone Encounter - Мария Perez FNP - 05/27/2019 1:49 PM CDT Patient was contacted via SMS to assess symptoms. He/she reported worsening of symptoms today. Called pt to discuss symptoms. No answer. Left Vm. MV number provided. documented in this encounter Plan of Treatment Not on file documented as of this encounter Visit Diagnoses Not on filedocumented in this encounter Care Teams Montessori Program Director Relationship Specialty Start Date End Date Huseyin Dangelo MD PCP - General 09/29/17 07/14/19 documented as of this encounter
--- OUTSIDE RECORDS SUMMARY | 2024-02-24 20:38 | XMS_ITS | Encounter Summary ---
Author Organization [facility] Address [address] [place] [address] Care Team Providers Care Business Banker Name Role Phone Brian Mon MD Primary [...] as of this encounter Care Teams Business Banker Relationship Specialty Start Date End Date Brian Mon MD [address] [place] [phone] PCP - General Internal Medicine 07/15/19 documented as of this encounter
--- OUTSIDE RECORDS SUMMARY | 2024-02-24 20:38 | XMS_ITS | Encounter Summary ---
Author Organization [facility] Address [address] [place] [address] Care Team Providers Care Hide Examiner Name Role Phone Huseyin Dangelo MD Primary Care Provider [phone] Encounter Details Date Type Department Care Team (Late st Contact Info) Description 05/27/[address] [address] [facility] [address] [place] [address] Social History Tobacco Use Types Packs/Day Years [...] Encounter - Мария Perez FNP - 05/27/2019 2:19 PM CDT Patient was contacted via SMS to assess symptoms. He/she reported worsening of symptoms today. She reports diarrhea for 11 days. She tells me she has called her PCP this morning and they discussed doing abx, She states she was tested for COVID-19 at [facility] 4 days ago and was negative. She tells me she is getting tested again tomorrow due to diarrhea. Advised her retesting was not necessary. Advised her to call PCP back for further recommendations. She verbalized understanding, no further questions. documented in this encounter Plan of Treatment Not on file documented as of this encounter Visit Diagnoses Not on filedocumented in this encounter Care Teams Hide Examiner Relationship Specialty Start Date End Date Huseyin Dangelo MD PCP - General 09/29/17 07/14/19 documented as of this encounter
--- OUTSIDE RECORDS SUMMARY | 2024-02-24 20:38 | XMS_ITS | Encounter Summary ---
Author Organization [facility] Address [address] [place] [address] Care Team Providers Care Dermatology Sales Representative Name Role Phone Huseyin Dangelo MD Primary Care Provider [phone] Reason for Visit * Reason Onset Date Comments Malaise 05/18/2019 Encounter Details Date Type Department Care Team (Late st Contact Info) Description 05/18/2019 Nurse Triage [facility] Nurse fractionating still operator [address] [place] [address] Мария Stokes, RN Social History Tobacco Use Types Packs/Day [...] Miscellaneous Notes * Telephone Encounter - Мария Stokes RN - 05/18/2019 9:40 AM CDT COVID TRIAGE Do you have a new symptom of cough? Yes Do you have a fever? absent Are you having a new symptom of SOB? Yes Have you traveled internationally in the last month? No If yes, location? Have you traveled within the [place] in the last month? No If yes, location? Have you been in contact with a suspected or lab-confirmed coronavirus patient? No Recommendation to patient: Patient is and having some SOB. Recommend calling OBGYN to report symtoms and get futhur instruction. documented in this encounter Plan of Treatment Not on file documented as of this encounter Visit Diagnoses Not on filedocumented in this encounter Care Teams Dermatology Sales Representative Relationship Specialty Start Date End Date Huseyin Dangelo MD PCP - General 09/29/17 07/14/19 documented as of this encounter
--- OUTSIDE RECORDS SUMMARY | 2024-02-24 20:38 | XMS_ITS | Encounter Summary ---
Author Organization [facility] Address [address] [place] [address] Care Team Providers Care Legal Practice Manager Name Role Phone Huseyin Dangelo MD Primary Care Provider [phone] Encounter Details Date Type Department Care Team (Late st Contact Info) Description 05/29/2019 Telephone [facility] [id number] [place] [phone] [place] [address] [place] [address] Social History Tobacco Use Types [...] Miscellaneous Notes * Telephone Encounter - Tadeo Shi - 05/29/2019 4:23 PM CDT Called pt for a SMS survey. No answer, left @2675 documented in this encounter Plan of Treatment Not on file documented as of this encounter Visit Diagnoses Not on filedocumented in this encounter Care Teams Legal Practice Manager Relationship Specialty Start Date End Date Huseyin Dangelo MD PCP - General 09/29/17 07/14/19 documented as of this encounter
--- OUTSIDE RECORDS SUMMARY | 2024-02-24 20:38 | XMS_ITS | Encounter Summary ---
Author Organization [facility] Address [address] [place] [address] Care Team Providers Care Ladder Operator Name Role Phone Brian Mon MD Primary Care Provider Encounter Details Date Type Department Care Team (Late st Contact Info) Description 05/28/2019 Digital Self COVID-1 9 Screening [facility] ABSTRACTION [...] documented as of this encounter Care Teams Ladder Operator Relationship Specialty Start Date End Date Brian Mon MD [address] [place] [phone] PCP - General Internal Medicine 07/15/19 documented as of this encounter
--- OUTSIDE RECORDS SUMMARY | 2024-02-24 20:38 | XMS_ITS | Encounter Summary ---
Author Organization [facility] Address [address] [place] [address] Care Team Providers Care Ice Guard Inspector Name Role Phone Brian Mon MD [...] documented as of this encounter Care Teams Ice Guard Inspector Relationship Specialty Start Date End Date Brian Mon MD [address] [place] [phone] PCP - General Internal Medicine 07/15/19 documented as of this encounter
--- OUTSIDE RECORDS SUMMARY | 2024-02-24 20:38 | XMS_ITS | Encounter Summary ---
Author Organization [facility] Address [address] [place] [address] Care Team Providers Care Propagator Name Role Phone Huseyin Dangelo MD Primary Care Provider [phone] Reason for Visit * Reason Comments Wrist Pain 28 yr old female pre sents to the ED with right wrist pain. Patient has wrist surgery on 12/26 and today the pain is gotten worse Encounter Details Date Type Department Care Team (Late st Contact Info) Description 12/28/2018 5:37 PM CDT - 12/28/2018 7:21 PM CDT Emergency [facility] Emergency Department [address] [place] [address] [place] [address] [place] [address] Right wrist pain (Primary Dx); Dizziness; Malaise Discharge Disposition: Home or Self Care Social [...] Sign Reading Time Taken Comments Blood Pressure 164/105 12/28/2018 5:10 PM CDT Pulse - - Temperature 36.5 ??C (97.7 ??F) 12/28/2018 5:10 PM CD T Respiratory Rate 14 12/28/2018 5:10 PM CDT Oxygen Saturation 100% 12/28/2018 5:10 PM CDT Inhaled Oxygen Concentration - - Weight 65.8 kg (145 lb) 12/28/2018 5:10 PM CDT Height 157.5 cm (5' 2 ) 12/28/2018 5:10 PM CDT Body Mass Index 26.52 12/28/2018 5:10 PM CDT documented in this encounter Discharge Instructions * Attachments The following attachments cannot be sent through Care Everywhere. * Dizziness (Kosovan) * Joint Pain (K[place]ovan) documented in this encounter Medications at Time of Discharge Medication Sig Dispensed Refills Start Date End Date omeprazole (PriLOSEC) 20 mg Capsule, Delayed Release(E.C.) Take 20 mg by mouth daily. hydroxychloroquine (PLAQUENIL) 200 mg tablet Take 200 mg by mouth daily. gabapentin (NEURONTIN) 300 mg capsule Take 1 Capsule (300 mg) by mouth 3 times daily for 7 days. 21 Capsule 12/23/2018 12/30/2018 valACYclovir (VALTREX) 1 gram tablet Take 1,000 mg by mouth 2 times daily. 04/27/2020 documented as of this encounter ED Notes * Kristie Doyle RN - 12/28/2018 7:20 PM CDT Pt given discharge instructions, requests to speak to the MD one more time. This RN went to get MD Lundy. When MD arrived at the room moments later, pt and family had left. * Kristie Doyle RN - 12/28/2018 7:06 PM CDT Pt given sling. Medication questions discussed and answered. * Kristie Doyle RN - 12/28/2018 6:50 PM CDT Pt reports that she is ready to eleave. Declines pain medication offer, states I have the same stuff at home, I am just ready to leave. Pt requesting to not have blood work done. MD aware, blood work cancelled. Pt also requesting a MD thea aware. * Kristie Doyle RN - 12/28/2018 6:00 PM CDT R wrist splinted by reliability technologist. PMS intact. * Blank Foote RN - 12/28/2018 5:58 PM CDT Pt wheeled into room at this time by ED staff. * Gayla Delgado RN - 12/28/2018 5:23 PM CDT TB Screen instructions: Complete the TB screening by asking your patient/family about symptoms/risk factors. Delete symptoms/risk factors that do not apply to your patient. Add up numbers in front of relevant symptoms/risk factors and type in total below. Symptoms/complaints: ??? 5=Hemoptysis ??? 3=Cough (prolonged 3 weeks or more) ? ? 2=Unexplained weight loss (>10 lbs) ??? 2=Fever, chills, and/or night sweats ??? 0=None Risk Factors: ??? 4=Active TB now or any time in the past (even if on medication) ??? 2=Homeless ??? 2=Foreign born ??? 2=New TB skin test positive (within 2 years) or history of recent TB exposure ??? 0=None Total symptom/risk factor values=0 If total is 5 or greater, initiate Airborne Isolation and contact provider. * Jacinta Loera RN - 12/28/2018 5:06 PM CDT TB Screen instructions: Complete the TB screening by asking your patient/family about symptoms/risk factors. Delete symptoms/risk factors that do not apply to your patient. Add up numbers in front of relevant symptoms/risk factors and type in total below. Symptoms/complaints: ??? 5=Hemoptysis ??? 3=Cough (prolonged 3 weeks or more) ? ? 2=Unexplained weight loss (>10 lbs) ??? 2=Fever, chills, and/or night sweats ??? 0=None Risk Factors: ??? 4=Active TB now or any time in the past (even if on medication) ??? 2=Homeless ??? 2=Foreign born ??? 2=New TB skin test positive (within 2 years) or history of recent TB exposure ??? 0=None Total symptom/risk factor values=0 If total is 5 or greater, initiate Airborne Isolation and contact provider. * Crescencio Lundy MD - 12/28/2018 5:04 PM CDT HISTORY OF PRESENT ILLNESS Carito Rausch, a 28 y.o. female presents to the ED with a Chief Complaint of Wrist Pain Subjective 28 year old female with PMHx of Lupus presenting to the ED with right wrist pain and nausea. Pt states that she cut her median nerve in her right wrist with glass on 12/09/2018. She received surgery on 12/09/2018. She received a second surgery on 12/26/2018. She states that today she has taken 1 oxycodone and 1 hydrocodone 6 hours apart with her last dose at 16:30. She complains of experiencing no pain relief from the pain medications. She states that the pain has significantly worsened today. She states I feel out of it and just do not feel like me. She also complains of dizziness, chest pain, tingling across whole body and numbness on thumb, second and third digit on right hand. She gutierrez es any injury to her bones. She has an appointment with her orthopedic surgeon in [address] Chino Zaldivar is orthopedic surgeon. REVIEW OF SYSTEMS Review of Systems Constitutional: Negative. HENT: Negative. Eyes: Negative. Respiratory: Negative. Cardiovascular: Positive for chest pain. Gastrointestinal: Positive for nausea. Endocrine: Negative. Genitourinary: Negative. Musculoskeletal: Negative. Positive right wrist pain Skin: Negative. Allergic/Immunologic: Negative. Neurological: Positive for dizziness and numbness (thumb, second and third digit on right hand). Positive full body tingling Hematological: Negative. Psychiatric/Behavioral: Negative. All other systems reviewed [...] a past surgical history that includes hx appendectomy and hx median nerve repair. FAMILY: Patient's family history is not on file. SOCIAL: reports that she quit smoking about 12 months ago. Her smoking use included cigarettes. She smoked 0.25 packs per day. She has never used smokeless tobacco. She reports current alcohol use. She reports current drug use. Drugs: Marijuana and Cocaine. No history on file. Social History Patient does not qualify to have social determinant information on file (likely too young). Other Topics Concern ??? Not on file PROBLEM LIST: Patient has Myalgia, unspecified site; Arthralgia; Weakness; and Lupus on their problem list. ALLERGIES Methylprednisolone HOME MEDICATIONS Discharge Medication List as of 12/28/2018 6:56 PM CONTINUE these medications which have NOT CHANGED Details gabapentin (NEURONTIN) 300 mg capsule Take 1 Capsule (300 mg) by mouth 3 times daily for 7 days., Disp-21 Capsule, R-0 capsaicin (ZOSTRIX) 0.025 % Cream Apply to [...] Objective PHYSICAL EXAM INITIAL VS BP: (!) 164/105 (12/28/181709), Heart Rate: 95 bpm (12/28/181709), Resp: 14 (12/28/181709), Pulse: (not recorded), Temp: 97.7 ??F (36.5 ??C) (12/28/181709), Temp src: (not recorded), SpO2: 100 % (12/28/181709), Height: 5' 2 (157.5 cm) (12/28/181709), Weight: 65.8 kg (145 lb) (12/28/181709),BMI (Calculated): 26.51 (12/28/181709) Patient's last menstrual period was 12/22/2018. Physical Exam Vitals signs and nursing note reviewed. Constitutional: General: She is not in acute distress. Appearance: She is not toxic-appearing or diaphoretic. Comments: Somewhat uncomfortable HENT: Head: Normocephalic and atraumatic. Eyes: General: Right eye: No discharge. Left eye: No discharge. Neck: Musculoskeletal: Normal range of motion and neck supple. Cardiovascular: Rate and Rhythm: Normal rate and regular rhythm. Pulses: Normal pulses. Heart sounds: Normal heart sounds. Comments: Doppler pulse and ulnar pulse intact in RUE. Pulmonary: Effort: Pulmonary effort is normal. No respiratory distress. Breath sounds: Normal breath sounds. No wheezing. Abdominal: General: Bowel sounds are normal. There is no distension. Palpations: Abdomen is soft. Tenderness: There is no tenderness. Musculoskeletal: Normal range of motion. General: No tenderness. Comments: Surgical incision with sutures in place to volar aspect of right wrist with local bruising. No drainage or erythema. Numbness in thumb, second and third digits on right hand. Able to flex and extend at DIPs and PIPs without difficulty. Able to make fist with some difficulty. Neurovascularly intact. Skin: General: Skin is warm and dry. Capillary Refill: Capillary refill takes 2 to 3 seconds. Neurological: Mental Status: She is alert and oriented to person, place, and time. Cranial Nerves: No cranial nerve deficit. Motor: No abnormal muscle tone. Psychiatric: Behavior: Behavior normal. Comments: Anxious DIAGNOSTICS LAB: No data to display RADIOLOGY: No orders to display XR WRIST 3+ VW RIGHT EKG: PROCEDURES Procedures MEDICAL DECISION MAKING AND PLAN OF CARE MDM I have reviewed previous: notes I have reviewed current: labs and imaging I have reviewed nursing notes related to past medical history, social history, and review of systems and agree, unless otherwise noted. Medications Administered During the ED Stay from 12/28/2018 1704 to 12/28/2018 2986 Date/Time Order Dose Route Action 12/28/2018 3512 HYDROcodone-acetaminophen (NORCO) 5-325 mg per tablet 1 Tablet 1 Tablet Oral Not Given Discharge Medication List as of 12/28/2018 6:56 PM CONTINUE these medications which have NOT CHANGED Details gabapentin (NEURONTIN) 300 mg capsule Take 1 Capsule (300 mg) by mouth 3 times daily for 7 days., Disp-21 Capsule, R-0 capsaicin (ZOSTRIX) 0.025 % Cream Apply to [...] 2 times daily. LAST VS BP: (!) 164/105 (12/28/181709), Heart Rate: 95 bpm (12/28/181709), Resp: 14 (12/28/181709), Pulse: (not recorded), Temp: 97.7 ??F (36.5 ??C) (12/28/181709), Temp src: (not recorded), SpO2: 100 % (12/28/181709) CLINICAL IMPRESSION Final diagnoses: [M25.531] Right wrist pain (Primary) [R42] Dizziness [R53.81] Malaise DISPOSITION, EDUCATION AND MEDICATION RECONCILIATION Medications reconciled. See after visit summary for patient education on discharged patients. ED Disposition ED Disposition Condition User Date/Time Comment Discharge Stable Crescencio Lundy MD Sat Dec 28, 2018 6:54 PM ATTESTATION STATEMENTS This note is prepared by Juana Ruiz acting as a scribe for Dr. Crescencio Lundy MD. The scribe's documentation has been prepared under my direction and personally reviewed by me in its entirety. I confirm that the note above accurately reflects all work, treatment, procedures, and medical decision making performed by me. Crescencio Lundy MD documented in this encounter Plan of Treatment Not on file documented as of this encounter Procedures Procedure Name Priority Date/Time Associated Diagnosis Comments XR WRIST 3+ VW RIGHT Stat 12/28/2018 6:14 PM CDT documented in this encounter Results * XR WRIST 3+ VW RIGHT (12/28/2018 6:14 PM CDT) Anatomical Region Laterality Modality Wrist / Hand Computed Radiogr aphy 12/28/2018 6:17 PM CDT Impressions 12/28/2018 11:04 PM CDT IMPRESSION: No acute fracture, dislocation, or radiopaque foreign body identified. DICTATION LOCATION: Location [address] [place] [address] Narrative 12/28/2018 11:04 PM CDT EXAMINATION: XR WRIST 3+ VW RIGHT DATE: 12/28/2018 6:14 PM HISTORY: Pain; cut with glass COMPARISON: 09/05/2014 FINDINGS: There is no evidence of acute fracture or dislocation. The joint spaces are preserved. Bone density is normal. No soft tissue swelling is seen. Procedure Note Niles Guadalupe MD - 12/28/2018 EXAMINATION: XR WRIST 3+ VW RIGHT DATE: 12/28/2018 6:14 PM HISTORY: Pain; cut with glass COMPARISON: 09/05/2014 FINDINGS: There is no evidence of acute fracture or dislocation. The joint spaces are preserved. Bone density is normal. No soft tissue swelling is seen. IMPRESSION: No acute fracture, dislocation, or radiopaque foreign body identified. DICTATION LOCATION: [address] Crescencio Lundy MD DIAGNOSTIC JONAHIN G ORDERABLES documented in this encounter Visit Diagnoses Diagnosis Right wrist pain- Primary Pain in joint, forearm Dizziness Dizziness and giddiness Malaise Other malaise and fatigue documented in this encounter Active and Recently Administered Medications Times are shown in CDT. Scheduled Medication Order 12/26/2018 12/27/2018 12/28/2018 HYDROcodone-acetaminophen (NORCO) 5-325 mg per tablet 1 Tablet 1 Tablet, Oral, ONE TIME ONLY, 1 dose, On 12/28/18 at 1730, Routine 1730 (Not Given - Pr ovider: Kristie Doyle RN - Reason: Other - See Comment - Comment: pt refused) documented in this encounter Care Teams Propagator Relationship Specialty Start Date End Date Huseyin Dangelo MD PCP - General 09/29/17 07/14/19 documented as of this encounter
--- OUTSIDE RECORDS SUMMARY | 2024-02-24 20:39 | XMS_ITS | Encounter Summary ---
Author Organization [employer] [facility] Address [address] [place] [address] Care Team Providers Care Car Bracer Name Role Phone Brian Mon MD Primary Care Provider Encounter Details Date Type Department Care Team (Late st Contact Info) Description 05/05/2004 Outpatient Historical [facility] Child and Adolescent Psychiatry [facility] [address] [place] [id number] [place] [address] [facility] [place] [address] Social History Tobacco Use Types Packs/Day Years [...] documented as of this encounter Care Teams Car Bracer Relationship Specialty Start Date End Date Brian Mon MD [address] [place] [address] PCP - General Internal Medicine 07/15/19 documented as of this encounter
--- OUTSIDE RECORDS SUMMARY | 2024-02-24 20:39 | XMS_ITS | Encounter Summary ---
Author Organization [facility] Address [address] [place] [address] Care Team Providers Care Glycerin Operator Name Role Phone Huseyin Dangelo MD Primary Care Provider [phone] Reason for Visit * Reason Comments Chest Pain Shortness of Breath Encounter Details Date Type Department Care Team (Late st Contact Info) Description 05/27/2018 1:31 PM CDT - 05/27/2018 5:52 PM CDT Emergency [facility] Emergency Department [address] [place] [address] Discharge Disposition: Left without being seen Social [...] Sign Reading Time Taken Comments Blood Pressure 131/71 05/27/2018 12:39 PM CDT Pulse - - Temperature 36.9 ??C (98.5 ??F) 05/27/2018 12:39 PM C DT Respiratory Rate 20 05/27/2018 12:39 PM CDT Oxygen Saturation 100% 05/27/2018 12:39 PM CDT Inhaled Oxygen Concentration - - Weight 63.5 kg (140 lb) 05/27/2018 12:39 PM CDT Height 162.6 cm (5' 4 ) 05/27/2018 12:39 PM CDT Body Mass Index 24.03 05/27/2018 12:39 PM CDT documented in this encounter Medications at Time of Discharge Medication Sig Dispensed Refills Start Date End Date hydroxychloroquine (PLAQUENIL) 200 mg tablet Take 200 mg by mouth daily. ondansetron (ZOFRAN ODT) 8 mg Tablet, Rapid Dissolve Dissolve 1 tablet on top of tongue then swallow with saliva every 8 hours as needed for nausea or vomiting. 10 Tablet 04/13/2018 07/12/2018 predniSONE (DELTASONE) 5 mg tablet Take 10 mg by mouth daily with breakfast . 07/12/2018 valACYclovir (VALTREX) 1 gram tablet Take 1,000 mg by mouth 2 times daily. 04/27/2020 documented as of this encounter ED Notes * Jenifer Ferrara RN - 05/27/2018 5:51 PM CDT Pt called paged multiple times for triage with no answer. 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 12 lead neg. 108/75,100,99% * Moose Chung RN - 05/27/2018 12:38 PM CDT TB Screen instructions: Complete the [...] TB exposure ??? 0=None Total symptom/risk factor values= 0 If total is 5 or greater, initiate Airborne Isolation and contact provider. documented in this encounter Plan of Treatment Not on file documented as of this encounter Procedures Procedure Name Priority Date/Time Associated Diagnosis Comments EKG 12-LEAD Stat 05/27/2018 12:52 PM CDT documented in this encounter Results * EKG 12-LEAD (05/27/2018 12:52 PM CDT) VENTRICULAR RATE 97 BPM INTERFACE SYSTEM ATRIAL RATE 97 BPM INTERFAC E SYSTEM P-R INTERVAL 128 ms INTERFA CE SYSTEM QRS DURATION 80 ms INTERFA CE SYSTEM Q-T INTERVAL 356 ms INTERFA CE SYSTEM QTC CALCULATION(BEZ ET) 452 ms INTERFACE SYSTEM P AXIS 49 degrees INTERFACE SYSTEM R AXIS 20 degrees INTERFACE SYSTEM T AXIS 19 degrees INTERFACE SYSTEM RESULT Normal sinus rhythm Nonspecific ST abnormality Abnormal ECG When compared with ECG of 28-MAR-2018 20:57, No significant change was found Confirmed by ESTRELLA HECTOR MD ([id number]) on 05/27/2018 1:30:59 PM INTERFACE SYSTEM 05/27/2018 12:5 2 PM CDT 05/27/2018 1:30 PM CDT Protocol [facility] Emergency ECG ORDERABLE S INTERFACE SYSTEM Refer to clinic/hospital department documented in this encounter Visit Diagnoses Not on filedocumented in this encounter Care Teams Glycerin Operator Relationship Specialty Start Date End Date Huseyin Dangelo MD PCP - General 09/29/17 07/14/19 documented as of this encounter
--- OUTSIDE RECORDS SUMMARY | 2024-02-24 20:39 | XMS_ITS | Encounter Summary ---
Author Organization [facility] Address [address] [place] [address] Care Team Providers Care Fashion Marketer Name Role Phone Huseyin Dangelo MD Primary Care Provider [phone] Reason for Visit * Reason Comments Generalized Body Aches was here twice th is week * Auth/Cert Specialty Diagnoses / Procedures Referred By Jud freeman Referred To Contact Emergency Medicine [facility] Emergency Department [address] [place] [address] Referral ID Status Reason Start Date Expiration Date Visits Re quested Visits Authorized [id number] 1 1 Encounter Details Date Type Department Care Team (Late st Contact Info) Description 06/23/2018 10:08 AM CDT - 06/23/2018 2:45 PM CDT Emergency [facility] Emergency Department [address] [place] [address] Kilo King MD NO ADDRESS ON FILE H/O systemic lupus erythematosus (SLE) (Primary Dx); Myalgia Discharge Disposition: Home or Self Care [...] Reading Time Taken Comments Blood Pressure 131/82 06/23/2018 2:35 PM CDT Pulse 101 06/23/2018 10:06 AM CDT Temperature 36.5 ??C (97.7 ??F) 06/23/2018 10:06 AM C DT Respiratory Rate 22 06/23/2018 2:35 PM CDT Oxygen Saturation 97% 06/23/2018 2:35 PM CDT Inhaled Oxygen Concentration - - Weight - - Height - - Body Mass Index - - documented in this encounter Discharge Instructions * Discharge Instructions* Kilo King MD - 06/23/2018 2:29 PM CDT I am not sure the exact cause of your symptoms. I do suspect that you do have lupus, although it isreasonable to want a second opinion. You can schedule an appointment with either Dr. Vinson, orDrRosa Liang, for a second opinion. I also recommended follow-up with Dr. Kee who is a neurologist. You should have a primary doctor you see as well, you can schedule one with the referral line. If you are having any fevers or other acutely worsening symptoms, please return to the emergency room. Otherwise, you can continue your prednisone at home. Thank you for giving us the opportunity to care for you today. If at any point you are becoming more ill, please call your doctor or return here. You are always welcome back. If you have any questions about this visit, concerns about your symptoms, questions about your medications or other concerns, please send me a text or leave a voicemail and I will get back to you as soon as I am able - please include your name and birthday. I may not be able to respond immediately,so if you are having an emergency you should instead go to the nearest ER. Kilo King MD [phone]. ADDITIONAL DISCHARGE INSTRUCTIONS: --Please follow all the instructions that we have discussed and know that you are always welcome back if you have further issues or concerns. --While the tests and exam we have performed in the Emergency Department did not show anything dangerous or life threatening it is important for you to follow up with your doctor for further evaluation of your symptoms. It is also important to return to the ED if your symptoms become worse or you have new or further concerns. --Radiology: If you had an x-ray, the read may be preliminary and you will be called if there are any further findings on the final read. (Please make sure that you have given registration a working phone number) --Again, you are always welcome back. * Attachments The following attachments cannot be sent through Care Everywhere. * Lupus (Citizen Of [place]) documented in this encounter Medications at Time [...] as of this encounter ED Notes * Elysia Causey RN - 06/23/2018 2:05 PM CDT Patient resting quietly at this time * Elysia Causey RN - 06/23/2018 11:30 AM CDT Patient to ED with complaints of generalized body aches with pain in her extremities and weakness. Patient reports history of lupus. When asked about when her sx worsened prompting her to come to ED patient stated Its been this way for a few weeks. I came here last week too. Patient noted to have dark urine upon UA collection. When asked if she had been drinking enough water, patient reported Idrank alcohol. I went out last night. Patient reports she has steroids from her PMD for when her lupus flairs up then stated But last time I was told it wasn't even lupus, that my bloodwork did notshow a flare up. So I don't really know what is causing it. I guess I will have to completely stop g oing out drinking because that seems to make it worse. * Leti Park RN - 06/23/2018 10:05 AM CDT TB Screen instructions: Complete the TB [...] exposure ??? 0=None Total symptom/risk factor values= If total is 5 or greater, initiate Airborne Isolation and contact provider. 0 * Kilo King MD - 06/23/2018 10:04 AM CDT History of Present Illness Carito Rausch is a 28 y.o. female Primary Care Doctor: Huseyin Dangelo MD Hx obtained from: patient Pt accompanied by: father Limitations to hx/exam: none Chief Complaint: Generalized Body Aches (1032) Pt presents to the ED c/o worsening generalized body aches for a couple months. Patient notes she woke up this morning with worsening symptoms, stating she was unable to get out of bed on her own. She states she is unable to lift her arms. Patient endorses bilateral hand swelling as well. Patient was diagnosed with lupus and fibromyalgia by a concrete pointer. She takes prednisone daily however endorses non compliance with her Plaquenil 2/2 side effects. Patient has been seen multiple times this past week for her symptoms. She would like to see a new concrete pointer however is unable to do so due to insurance issues. Symptoms are better with medication, worse with time. + prior h/o similar. Relevant Medical History Past Medical History: Past Medical History: Diagnosis Date ??? Connective tissue disease ??? Fibromyalgia ??? Lupus Past Surgical History: Past Surgical History: Procedure Laterality Date ??? HX APPENDECTOMY Home Medications: No current facility-administered medications on file prior to encounter. Current Outpatient Medications on File Prior to Encounter Medication Sig Dispense Refill ??? ondansetron (ZOFRAN ODT) 8 mg Tablet, Rapid Dissolve Dissolve 1 tablet on top of tongue then swallow with saliva every 8 hours as needed for nausea or vomiting. 10 Tablet 0 ??? predniSONE (DELTASONE) 5 mg tablet Take 10 mg by mouth daily with breakfast . ??? hydroxychloroquine (PLAQUENIL) 200 mg tablet Take [...] mg by mouth 2 times daily. Allergies: No Known Allergies Social History: Social History Tobacco Use ??? Smoking status: Former Smoker Packs/day: 0.25 Types: Cigarettes Last attempt to quit: 12/11/2017 Years since quittin.5 ??? Smokeless tobacco: Never Used Substance Use Topics ??? Alcohol use: Yes Comment: socially ??? Drug use: Yes Types: Marijuana, Cocaine Comment: one time use 12/2017 Family History: No family history on file. Review of Systems Review of Systems Constitutional: Negative for fever. HENT: Negative for congestion. Eyes: Negative for visual disturbance. Respiratory: Negative for shortness of breath. Cardiovascular: Negative for chest pain. Gastrointestinal: Negative for abdominal pain. Genitourinary: Negative for dysuria. Musculoskeletal: Positive for myalgias. Negative for gait problem. Skin: Negative for color change. Neurological: Negative for headaches. Physical Exam BP: 127/81 (06/23/18 1006), Heart Rate: 90 bpm (06/23/18 1055), Resp: 14 (06/23/18 1006), Temp: 97.7 ??F (36.5 ??C) (06/23/18 1006), Temp src: Oral (06/23/18 1006), SpO2: 100 % (06/23/18 1006), Height: (not recorded), Weight: (not recorded), BMI (Calculated): (not recorded) Physical Exam Constitutional: She is oriented to person, place, and time. She appears well- developed and well-nourished. No distress. Patient appears uncomfortable, intermittently tearful HENT: Head: Normocephalic and atraumatic. Mouth/Throat: Oropharynx is clear and moist. Eyes: Conjunctivae and EOM are normal. No scleral icterus. Neck: Neck supple. No JVD present. Cardiovascular: Normal rate, regular rhythm, normal heart sounds and intact distal pulses. No murmur heard. Pulmonary/Chest: Effort normal and breath sounds normal. No respiratory distress. She has no wheezes. She has no rales. Abdominal: Soft. Bowel sounds are normal. She exhibits no distension and no mass. There is no tenderness. There is no guarding. Musculoskeletal: She exhibits no edema. Mild swelling of bilateral hands Neurological: She is alert and oriented to person, place, and time. She exhibits normal muscle tone. Normal strength and sensation Skin: Skin is warm and dry. Capillary refill takes less than 2 seconds. She is not diaphoretic. No erythema. No pallor. Psychiatric: She has a normal mood and affect. Her behavior is normal. Nursing note and vitals reviewed. Pulse Oximetry Interpretation: Saturation: 100% on room air Interpretation: no hypoxia Rhythm Strip Interpretation Sinus rhythm, no arrhythmia Ventricular Rate: 90 bpm Initial Electrocardiogram (independent interpretation by Babs King MD): Rate/rhythm: Sinus tachycardia, 101 BPM QTc: 448 Conduction/ischemia: Non specific changes, no FAWN Comparison: May 27- rate was 97 bpm, otherwise stable Medical Decision Making and ED Course Medical Decision Making: Dx: body aches, malaise DDx: unfortunately this likely does represent lupus though patient has difficulty appreciating thisdisease, will rule out kidney failure, and rhabdomyolysis Plan for steroids, fluids, pain medications, reassess ED Course as of Jun 23 1431 Sun Jun 23, 2018 1059 Last ER visit, patient did have some rheumatology labs done, double- stranded DNA antibody was low end of normal, both consistent with lupus. [DS] 1157 Patient's urinalysis reviewed, there is leukocyte esterase, 5 epithelial cells, negative nitrites, no specific urinary complaints, this can wait for culture I believe. She is not febrile. [DS] 1217 Elevated but grossly stable ESR (SEDIMENTATION RATE)(!): 29 [DS] 1226 Patient called RN into room, heart rate was up to the 140s, now back down into the 100s, will check EKG [DS] 1234 Rechecked on patient, discussed plan for admission. She has received a Solu-Medrol, and is having an anxiety like adverse reaction to it, as ordered above Benadryl and Ativan, her heart rate is in the 120s on my assessment, her lungs are clear she does not have any skin changes to suggest a true Ig mediated allergy. [DS] [address] Dangelo, PC and Dr. Melgar, hospitalist. [BF] 1240 Dr. Melgar called back, requested admission to other group. Paged to [facility] Hospitalist group [DS] 1240 Pt asked to see me again, feeling very nauseous. Still tachy with otherwise appropriate Vs. Reglan ordered for nausea. Could be in relation to toradol as well. [DS] 1259 D/w Dr. Helms who has requested pt be transferred given no concrete pointer on staff to consult. Will d/w [facility]. [DS] 1308 Updated patient and mother on plan to transfer. They are agreeable. [BF] 1340 D/w Dr. Hamilton at [facility] who says they do not have a concrete pointer available either. [BF] 1350 D/w Dr. Garrett who is declining to admit pt w/o a concrete pointer on staff. [DS] 1425 Rechecked on patient, discussed difficulty in finding an accepting hospital, her heart rate has improved now, in the 80s on my recheck, she is requesting simply to be discharged home. She did request a referral to neurology, along with the concrete pointer to see for a second opinion. Return precautions were discussed. I gave my cell phone number to call with any questions or concerns. [DS] ED Course User Index [BF] Mauricio Britton, Scribe [DS] Kilo King MD Final Diagnoses: Final diagnoses: [Z87.39] H/O systemic lupus erythematosus (SLE) (Primary) [M79.10] Myalgia Dispo: ED Disposition ED Disposition Condition User Date/Time Comment Discharge Stable Kilo King MD [place] Jun 23, 2018 2:26 PM Critical care provided: n/a Studies and Interpretation Lab: (pertinent labs reviewed by Babs King MD), Significant for: CBC WITH DIFFERENTIAL - Abnormal Result Value WBC 9.2 RBC 4.38 HEMOGLOBIN 10.2 (*) HEMATOCRIT 31.9 (*) MCV 72.7 (*) MCH 23.3 (*) MCHC 32.1 (*) RDW 19.3 (*) PLATELETS 389 MPV 8.0 (*) NEUTROPHILS 91 (*) LYMPHOCYTES 6 (*) MONOCYTES 3 EOSINOPHILS 0 BASOPHILS 0 IMMATURE GRANULOCYTES 0 NEUTROPHIL ABSOLUTE 8.30 (*) LYMPHOCYTE ABSOLUTE 0.50 MONOCYTE ABSOLUTE 0.30 EOSINOPHIL ABSOLUTE 0.00 BASOPHILS ABSOLUTE 0.00 IMMATURE GRANULOCYTES ABSOLUTE 0.00 URINALYSIS WITH REFLEX CULTURE - Abnormal COLOR UA Dark Yellow CLARITY UA Slightly Cloudy (*) SPECIFIC GRAVITY UA 1.027 PH UA 6.0 LEUKOCYTE ESTERASE UA 1+ (*) NITRITE UA Negative PROTEIN UA 2+ (*) GLUCOSE UA Negative KETONES UA Negative UROBILINOGEN UA Normal BILIRUBIN UA Negative BLOOD UA Negative WBC UA 3-5 (*) RBC UA 3-5 (*) BACTERIA UA 1+ (*) EPITHELIAL CELLS, URINE 11-25 (*) HYALINE CAST None Seen Ascorbic Acid UA Negative SEDIMENTATION RATE - Abnormal ESR (SEDIMENTATION RATE) 29 (*) COMPREHENSIVE METABOLIC PANEL - Normal SODIUM 137 POTASSIUM 4.1 CHLORIDE 101 CO2 23 CALCIUM 9.1 BUN 15 CREATININE 0.66 GLUCOSE 91 TOTAL PROTEIN 7.7 ALBUMIN 4.2 BILIRUBIN TOTAL 0.5 ALKALINE PHOSPHATASE 56 AST 15 ALT 13 GFR >60 GFR, >60 ANION GAP 13 TSH - Normal TSH 2.03 HCG QUALITATIVE, BLOOD - Normal HCG QUAL, BLOOD Negative CK - Normal CK 20 C-REACTIVE PROTEIN - Normal CRP <1.0 URINE CULTURE EXTRA TUBE EXTRA TUBE (URINE CONNER) ETHANOL LEVEL Note: This H+P was created with the aid of dictation software, thus there may be some word substitutions or errors. Mauricio Perez, am serving as a scribe to document services personally performed by Kilo Herrera MD, based upon my observations and the provider's statements to me. All documentation has been reviewed by the aforementioned doctor prior to being entered into the official medical record. Electronically signed by: Karlie Chavira Provider Attestation: Christine Perez Daniel J, MD, have reviewed the documentation as recorded by thescribe and it accurately reflects the work and decisions made by me. 06/23/2018 documented in this encounter Plan of Treatment Not on file documented as of this encounter Procedures Procedure Name Priority Date/Time Associated Diagnosis Comments EKG 12-LEAD Stat 06/23/2018 12:33 PM CDT HCG QUALITATIVE, SERUM Stat 9 11:39 AM CDT CBC WITH DIFFERENTIAL Stat 06/23/2018 11:39 AM CDT SEDIMENTATION RATE Stat 06/23/2018 11 :39 AM CDT C-REACTIVE PROTEIN Stat 06/23/2018 11 :39 AM CDT TSH Stat 06/23/2018 11:39 AM CDT CK Stat 06/23/2018 11:39 AM CDT ETHANOL LEVEL Stat 06/23/2018 11:39 AM CDT COMPREHENSIVE METABOLIC PANEL Stat 06/23/2018 11:39 AM CDT EXTRA TUBE Stat 06/23/2018 11:30 AM CDT EXTRA TUBE (URINE CONNER) Stat 06/23/2018 11:30 AM CDT URINALYSIS WITH REFLEX CULTURE Stat 06/23/2018 11:30 AM CDT URINE CULTURE Stat 06/23/2018 11:30 AM CDT documented in this encounter Results * EKG 12-LEAD (06/23/2018 12:33 PM CDT) VENTRICULAR RATE 101 BPM INTERFACE SYSTEM ATRIAL RATE 101 BPM INTERFAC E SYSTEM P-R INTERVAL 134 ms INTERFA CE SYSTEM QRS DURATION 80 ms INTERFA CE SYSTEM Q-T INTERVAL 346 ms INTERFA CE SYSTEM QTC CALCULATION(BEZ ET) 448 ms INTERFACE SYSTEM P AXIS 46 degrees INTERFACE SYSTEM R AXIS 44 degrees INTERFACE SYSTEM T AXIS 10 degrees INTERFACE SYSTEM RESULT Sinus tachycardia Nonspecific ST abnormality Abnormal ECG When compared with ECG of 27-MAY-2018 12:52, No significant change was found Confirmed by BRET GEE MD ([id number]) on 06/24/2018 11:03:24 AM INTERFACE SYSTEM 06/23/2018 12:3 3 PM CDT 06/24/2018 11:03 AM CDT Kilo King MD ECG ORDERABLES INTERFACE SYSTEM Refer to clinic/hospital department * ETHANOL LEVEL (06/23/2018 11:39 AM CDT) ETHANOL <10.00 mg/dL 06/23/2018 2:36 PM CDT [facility] [employer] [facility] ETHANOL % 0.01 %w/v 06/23/2018 2:36 PM CDT [facility] [employer] [facility] Blood Venipuncture / Unknown 06/23/2018 11:39 AM CDT 06/23/2018 11:51 AM CDT Kilo King MD CHEMISTRY ORDERABLE S Performing Organization Address [facility]/ZIP Co de Phone Number [facility] [id number] [place] [address] * C-REACTIVE PROTEIN (06/23/2018 11:39 AM CDT) Pathologist [facility] CRP <1.0 <5.0 mg/L 06/23/2018 12:34 PM CDT [facility] Blood Venipuncture / Unknown 06/23/2018 11:39 AM CDT 06/23/2018 11:51 AM CDT Kilo King MD CHEMISTRY ORDERABLE S Performing Organization Address [facility] Co de Phone Number [facility]# [id number] [place] [address] * (ABNORMAL) SEDIMENTATION RATE (06/23/2018 11:39 AM CDT) [facility] [address] ESR (SEDIMENTATION RATE) 29(H) 0 - 20 mm/Hr 06/23/2018 12:10 PM CDT [facility] Blood Venipuncture / Unknown 06/23/2018 11:39 AM CDT 06/23/2018 11:51 AM CDT Kilo King MD HEMATOLOGY ORDERABL ES Performing Organization Address [facility]/ZIP Co de Phone Number [facility] [id number] [place] [address] * CK (06/23/2018 11:39 AM CDT) Pathologist [facility] CK 20 20 - 180 U/L 06/23/2018 12:34 PM CDT [facility] Blood Venipuncture / Unknown 06/23/2018 11:39 AM CDT 06/23/2018 11:51 AM CDT Kilo King MD CHEMISTRY ORDERABLE S Performing Organization Address [facility]/ZIP Co de Phone Number [facility] [id number] [place] [address] * HCG QUALITATIVE, BLOOD (06/23/2018 11:39 AM CDT) Pathologist [facility] HCG QUAL, BLOOD Negative Negative 06/23/2018 12:11 PM CDT [facility] Blood Venipuncture / Unknown 06/23/2018 11:39 AM CDT 06/23/2018 11:51 AM CDT Kilo King MD CHEMISTRY ORDERABLE S Performing Organization Address [facility] Co de Phone Number [facility] [id number] [place] [address] * TSH (06/23/2018 11:39 AM CDT) Pathologist [facility] TSH 2.03 0.27 - 4.20 uIU/mL 06/23/2018 12:43 PM CDT [facility] Blood Venipuncture / Unknown 06/23/2018 11:39 AM CDT 06/23/2018 11:51 AM CDT Kilo King MD CHEMISTRY ORDERABLE S Performing Organization Address City/[facility]/ZIP Co de Phone Number [facility] [id number] [place] [address] * COMPREHENSIVE METABOLIC PANEL (06/23/2018 11:39 AM CDT) Pathologist [facility] SODIUM 137 136 - 145 mmol/L 06/23/2018 12:34 PM CDT [facility] POTASSIUM 4.1 3.4 - 5.1 mmol/L 06/23/2018 12:34 PM [facility] CHLORIDE 101 98 - 107 mmol/L 06/23/2018 12:34 PM [facility] CO2 23 22 - 29 mmol/L 06/23/2018 12:34 PM [facility] CALCIUM 9.1 8.6 - 10.4 mg/dL 06/23/2018 12:34 PM [facility] BUN 15 6 - 20 mg/dL 06/23/2018 12:34 PM [facility] CREATININE 0.66 0.50 - 1.00 mg/dL 06/23/2018 12:34 PM [facility] GLUCOSE 91 74 - 99 mg/dL 06/23/2018 12:34 PM [facility] TOTAL PROTEIN 7.7 6.3 - 8.7 g/dL 06/23/2018 12:34 PM [facility] ALBUMIN 4.2 3.5 - 5.2 g/dL 06/23/2018 12:34 PM [facility] BILIRUBIN TOTAL 0.5 0.2 - 1.3 mg/dL 06/23/2018 12:34 PM [facility] ALKALINE PHOSPHATASE 56 40 - 150 U/L 06/23/2018 12:34 PM [facility] AST 15 0 - 33 U/L 06/23/2018 12:34 PM [facility] ALT 13 0 - 33 U/L 06/23/2018 12:34 PM [facility] GFR >60 >=60 mL/min/1.7 3 sq meter 06/23/2018 12:34 PM [facility] Comment: eGFR has not been validated for [...] GFR, >60 >=60 mL/min/1.7 3 sq meter 06/23/2018 12:34 PM CDT [facility] ANION GAP 13 8 - 16 mmol/L 06/23/2018 12:34 PM CDT [facility] Blood Venipuncture / Unknown 06/23/2018 11:39 AM CDT 06/23/2018 11:51 AM CDT Kilo King MD CHEMISTRY ORDERABLE S [facility] CLIA# [id number] [place] [address] * (ABNORMAL) CBC WITH DIFFERENTIAL (06/23/2018 11:39 AM CDT) WBC 9.2 4.5 - 10.5 K/uL 06/23/2018 11:57 AM CDT [facility] RBC 4.38 3.90 - 4.90 M/uL 06/23/2018 11:57 AM T [facility] HEMOGLOBIN 10.2(L) 11.8 - 14.8 g/dL 06/23/2018 11:57 AM T [facility] HEMATOCRIT 31.9(L) 35.5 - 44.0 % 06/23/2018 11:57 AM CDT [facility] MCV 72.7(L) 82.0 - 99.0 fL 06/23/2018 11:57 AM CDT [facility] MCH 23.3(L) 27.8 - 34.5 pg 06/23/2018 11:57 AM CDT [facility] MCHC 32.1(L) 32.5 - 35.5 g/dL 06/23/2018 11:57 AM CDT [facility] RDW 19.3(H) 11.5 - 14.5 % 06/23/2018 11:57 AM CDT [facility] PLATELETS 389 160 - 420 K/uL 06/23/2018 11:57 AM CDT [facility] MPV 8.0(L) 8.7 - 12.7 fL 06/23/2018 11:57 AM CDT [facility] NEUTROPHILS 91(H) 45 - 70 % 06/23/2018 11:57 AM CDT [facility] LYMPHOCYTES 6(L) 16 - 45 % 06/23/2018 11:57 AM CDT [facility] MONOCYTES 3 3 - 13 % 06/23/2018 11:57 AM CDT [facility]ORATORY SERVICES [facility] EOSINOPHILS 0 0 - 7 % 06/23/2018 11:57 AM CDT [facility] BASOPHILS 0 0 - 2 % 06/23/2018 11:57 AM CDT [facility] IMMATURE GRANULOCYTES 0 0 - 5 % 06/23/2018 11:57 AM CDT [facility] NEUTROPHIL ABSOLUTE 8.30(H) 1.90 - 7.00 K/uL 06/23/2018 11:57 AM CDT [facility] LYMPHOCYTE ABSOLUTE 0.50 K/uL 06/23/2018 11:57 AM CDT [facility] MONOCYTE ABSOLUTE 0.30 K/uL 019 11:57 AM CDT [facility] EOSINOPHIL ABSOLUTE 0.00 0.00 - 0.70 K/uL 06/23/2018 11:57 AM CDT [facility] BASOPHILS ABSOLUTE 0.00 K/uL 06/23/2018 11:57 AM CDT [facility] IMMATURE GRANULOCYTES ABSOLUTE 0.00 K/uL 06/23/2018 11:57 AM CDT [facility] Blood Venipuncture / Unknown 06/23/2018 11:39 AM CDT 06/23/2018 11:51 AM CDT Kilo King MD HEMATOLOGY ORDERABL ES [facility] CLIA# [id number] [place] [address] * (ABNORMAL) URINE CULTURE (06/23/2018 11:30 AM CDT) CULTURE >= 100,000 cfu/mL Lactobacillus species(A) 06/24/2018 1:54 PM CDT [facility] CULTURE <10,000 cfu/mL Normal urethral geovanna 06/24/2018 1:54 PM CDT [facility] Urine URINE SPECIMEN OBTAINED BY CLEAN CATCH PROCEDURE / Unknown Collection / Unknown 06/23/2018 11:30 AM CDT 06/23/2018 11:50 AM CDT Kilo King MD MICROBIOLOGY - GENE RAL ORDERABLES [facility] [employer] [facility] CLIA# [id number] [address] [place] [address] * EXTRA TUBE (URINE CONNER) (06/23/2018 11:30 AM CDT) Urine URINE SPECIMEN OBTAINED BY CLEAN CATCH PROCEDURE / Unknown Collection / Unknown 06/23/2018 11:30 AM CDT 06/23/2018 11:41 AM CDT Kilo King MD URINE ORDERABLES [facility] [employer] [facility] CLIA# [id number] [address] * (ABNORMAL) URINALYSIS WITH REFLEX CULTURE (06/23/2018 11:30 AM CDT) COLOR UA Dark Yellow Pale to Dark Yellow 06/23/2018 11:50 AM CDT [facility] [employer] [facility] CLARITY UA Slightly Cloudy(A) Clear 06/23/2018 11:50 AM CDT [facility] [employer] [facility] SPECIFIC GRAVITY UA 1.027 1.003 - 1.035 06/23/2018 11:50 AM CDT [facility] [employer] [facility] PH UA 6.0 5.0 - 8.0 06/23/2018 11:50 AM CDT [facility] [employer] [facility] LEUKOCYTE ESTERASE UA 1+(A) Negative 06/23/2018 11:50 AM CDT [facility] [employer] [facility] NITRITE UA Negative Negative 06/23/2018 11:50 AM CDT [facility] [employer] [facility] PROTEIN UA 2+(A) Negative 06/23/2018 11:50 AM CDT [facility] [employer] [facility] GLUCOSE UA Negative Negative 06/23/2018 11:50 AM CDT [facility] [employer] [facility] KETONES UA Negative Negative 06/23/2018 11:50 AM CDT [facility] [employer] [facility] UROBILINOGEN UA Normal <2.0 mg/dL 9 11:50 AM CDT [facility] [employer] [facility] BILIRUBIN UA Negative Negative 06/23/2018 11:50 AM CDT [facility] [employer] [facility] BLOOD UA Negative Negative 06/23/2018 11:50 AM CDT [facility] [employer] [facility] WBC UA 3-5(A) 0 - 2 /hpf 06/23/2018 11:50 AM CDT [facility] [employer] [facility] RBC UA 3-5(A) 0 - 2 /hpf 06/23/2018 11:50 AM CDT [facility] [employer] [facility] BACTERIA UA 1+(A) Negative /hpf 06/23/2018 11:50 AM CDT [facility] [employer] [facility] EPITHELIAL CELLS, URINE 11-25(A) 0 - 5 /hpf 06/23/2018 11:50 AM CDT [facility] [employer] [facility] HYALINE CAST None Seen None Seen, 0-2 /lpf 06/23/2018 11:50 AM T [facility] [employer] [facility] Ascorbic Acid UA Negative Negative 06/24/19 19 11:50 AM T [facility] [employer] [facility] Urine URINE SPECIMEN OBTAINED BY CLEAN CATCH PROCEDURE / Unknown Collection / Unknown 06/23/2018 11:30 AM CDT 06/23/2018 11:41 AM CDT [facility] - 06/23/2018 11:50 AM CDT Based on results, a urine culture has been reflexed. Kilo King MD URINE ORDERABLES [id number] [place] [address] documented in this encounter Visit Diagnoses Diagnosis H/O systemic lupus erythematosus (SLE)- Primary Personal history of other endocrine, metabolic, and immunity disorders Myalgia Mylagia and myositis, unspecified documented in this encounter Administered Medications Inactive Administered Medications - up to 3 most recent administrations Medication Order MAR Action Action Date Dose Rate Site diphenhydrAMINE (BENADRYL) injection 25 mg 25 mg, IV, ONE TIME ONLY, 1 dose, On 06/23/18 at 1245, Routine Given 06/23/2018 12:58 PM CDT 25 mg ketorolac (TORADOL) injection 15 mg 15 mg, IV, ONE TIME ONLY, 1 dose, On 06/23/18 at 1100, Routine Given 06/23/2018 11:40 AM CDT 15 mg Lactated Ringers bolus solution 1,000 mL 1,000 mL, IV, ONE TIME ONLY, 1 dose, On Sun06/23/18 at 1100, at 2,000 mL/hr, Administer over 30 Minutes, Routine New Bag 06/23/2018 11:40 AM CDT 1,000 mL 2000 mL/hr Lactated Ringers bolus solution 1,000 mL 1,000 mL, IV, ONE TIME ONLY, 1 dose, On 06/23/18 at 1245, at 2,000 mL/hr, Administer over 30 Minutes, Routine New Bag 06/23/2018 12:57 PM CDT 1,000 mL 2000 mL/hr LORazepam (ATIVAN) 2 mg/mL injection 1 mg 1 mg, IV, ONE TIME ONLY, 1 dose, On 06/23/18 at 1245, Routine Given 06/23/2018 12:58 PM CDT 1 mg methylPREDNISolone sodium succinate PF (SOLU-Medrol PF) injection 125 mg 125 mg, IV, ONE TIME ONLY, 1 dose, On 06/23/18 at 1100, Routine Given 06/23/2018 11:40 AM CDT 125 mg metoclopramide (REGLAN) 5 mg/mL injection 10 mg 10 mg, IV, ONE TIME ONLY, 1 dose, On 06/23/18 at 1245, Routine Given 06/23/2018 12:57 PM CDT 10 mg documented in this encounter Active and Recently Administered Medications Times are shown in CDT. Scheduled Medication Order 06/21/2018 06/22/2018 06/23/2018 diphenhydrAMINE (BENADRYL) injection 25 mg (COMPLETED) 25 mg, IV, ONE TIME ONLY, 1 dose, On 06/23/18 at 1245, Routine 1258 (Given - Provid er: Elysia Causey RN) ketorolac (TORADOL) injection 15 mg (COMPLETED) 15 mg, IV, ONE TIME ONLY, 1 dose, On 06/23/18 at 1100, Routine 1140 (Given - Provid er: Elysia Causey RN) Lactated Ringers bolus solution 1,000 mL (COMPLETED) 1,000 mL, IV, ONE TIME ONLY, 1 dose, On 06/23/18 at 1100, at 2,000 mL/hr, Administer over 30 Minutes, Routine 1140 (New Bag - Prov ider: Elysia Causey RN)1210 (Stopped - Provider: Elysia Causey RN) Lactated Ringers bolus solution 1,000 mL (COMPLETED) 1,000 mL, IV, ONE TIME ONLY, 1 dose, On 06/23/18 at 1245, at 2,000 mL/hr, Administer over 30 Minutes, Routine 1257 (New Bag - Prov ider: Elysia Causey RN)1327 (Stopped - Provider: Elysia Causey RN) LORazepam (ATIVAN) 2 mg/mL injection 1 mg (COMPLETED) 1 mg, IV, ONE TIME ONLY, 1 dose, On 06/23/18 at 1245, Routine 1258 (Given - Provid er: Elysia Causey RN) methylPREDNISolone sodium succinate PF (SOLU-Medrol PF) injection 125 mg (COMPLETED) 125 mg, IV, ONE TIME ONLY, 1 dose, On 06/23/18 at 1100, Routine 1140 (Given - Provid er: Elysia Causey RN) metoclopramide (REGLAN) 5 mg/mL injection 10 mg (COMPLETED) 10 mg, IV, ONE TIME ONLY, 1 dose, On 06/23/18 at 1245, Routine 1257 (Given - Provid er: Elysia Causey RN) documented in this encounter Care Teams Fashion Marketer Relationship Specialty Start Date End Date Huseyin Dangelo MD PCP - General 09/29/17 07/14/19 documented as of this encounter
--- OUTSIDE RECORDS SUMMARY | 2024-02-24 20:39 | XMS_ITS | Encounter Summary ---
Author Organization [facility] Address [address] [place] [address] Care Team Providers Care Shell Trim Tool Setter Name Role Phone Huseyin Dangelo MD Primary Care Provider [phone] Encounter Details Date Type Department Care Team (Late st Contact Info) Description 03/28/2018 Transcribe Orders Central Test Scheduling [address] [place] [address] Tricia Flanagan Social History Tobacco Use Types Packs/Day Years Used Date Smoking Tobacco: Some Days Cigarettes Smokeless Tobacco: Never Alcohol Use Standard [...] on filedocumented in this encounter Care Teams Shell Trim Tool Setter Relationship Specialty Start Date End Date Huseyin Dangelo MD PCP - General 09/29/17 07/14/19 documented as of this encounter
--- OUTSIDE RECORDS SUMMARY | 2024-02-24 20:39 | XMS_ITS | Encounter Summary ---
Author Organization [facility] Address [address] [place] [address] Care Team Providers Care Terminal Operator Name Role Phone Brian Mon MD Primary Care Provider Encounter Details Date Type Department Care Team (Late st Contact Info) Description 04/26/2004 Outpatient [facility] Family Therapy [address] [place] [phone] Hanh Benavidez Social History Tobacco Use Types Packs/Day Years [...] as of this encounter Care Teams Terminal Operator Relationship Specialty Start Date End Date Brian Mon MD [address] [place] [phone] (work) PCP - General Internal Medicine 07/15/19 documented as of this encounter
--- OUTSIDE RECORDS SUMMARY | 2024-02-24 20:39 | XMS_ITS | Encounter Summary ---
Author Organization [facility] Address [address] [place] [address] Care Team Providers Care Lapper Name Role Phone Huseyin Dangelo MD Primary Care Provider [phone] Encounter Details Date Type Department Care Team (Latest Contact Info) Description 03/30/2018 Transcribe Orders Central Test Scheduling [address] [place] [address] Ernie Strickland MD [address] [place] [address] Systemic lupus erythematosus encephalitis (Primary Dx); Anti-RECOVERY OPERATOR HELPER antibodies present; Arthralgia of multiple sites Social History Tobacco Use Types Packs/Day Years [...] this encounter Visit Diagnoses Diagnosis Systemic lupus erythematosus encephalitis- Primary Systemic lupus erythematosus Anti-RECOVERY OPERATOR HELPER antibodies present Other and unspecified nonspecific immunological findings Arthralgia of multiple sites Pain in joint, multiple sites documented in this encounter Care Teams Lapper Relationship Specialty Start Date End Date Huseyin Dangelo MD PCP - General 09/29/17 07/14/19 documented as of this encounter
--- OUTSIDE RECORDS SUMMARY | 2024-02-24 20:39 | XMS_ITS | Encounter Summary ---
Author Organization [facility] Address [address] [place] [address] Care Team Providers Care Election Assistant Name Role Phone Brian Mon MD Primary Care Provider Encounter Details Date Type Department Care Team (Late st Contact Info) Description 04/06/2004 Outpatient Historical [facility] Child and Adolescent Psychiatry S [facility] [address] [place] [phone] [place] [address] [facility] [place] [address] Social History Tobacco Use Types [...] documented as of this encounter Care Teams Election Assistant Relationship Specialty Start Date End Date Brian Mon MD [address] [place] [phone] PCP - General Internal Medicine 07/15/19 documented as of this encounter
--- OUTSIDE RECORDS SUMMARY | 2024-02-24 20:39 | XMS_ITS | Encounter Summary ---
Author Organization [facility] Address [address] [place] [address] Care Team Providers Care Dairy Management Specialist Name Role Phone Brian Mon MD Primary Care Provider Encounter Details Date Type Department Care Team (Late st Contact Info) Description 03/31/2004 Outpatient Historical [facility] Child and Adolescent Psychiatry S [facility] [address] [place] [address] [place] [address] [facility] [place] [address] Social History Tobacco Use Types [...] documented as of this encounter Care Teams Dairy Management Specialist Relationship Specialty Start Date End Date Brian Mon MD [address] [place] [phone] PCP - General Internal Medicine 07/15/19 documented as of this encounter
--- OUTSIDE RECORDS SUMMARY | 2024-02-24 20:39 | XMS_ITS | Encounter Summary ---
Author Organization [facility] Address [address] [place] [address] Care Team Providers Care Chronometer Adjuster Name Role Phone Huseyin Dangelo MD Primary Care Provider [phone] Reason for Visit * Reason Comments Dizziness Encounter Details Date Type Department Care Team (Late st Contact Info) Description 01/10/2018 1:58 PM ONCOLOGY NURSE - 01/10/2018 3:24 PM ONCOLOGY NURSE Emergency [facility] Emergency Department [id number] [place] [address] Near syncope (Primary Dx); History of joint pain; History of muscle pain Discharge Disposition: Home or Self Care [...] Reading Time Taken Comments Blood Pressure 120/76 01/10/2018 3:14 PM ONCOLOGY NURSE Pulse - - Temperature 36.7 ??C (98 ??F) 01/10/2018 2:02 PM ONCOLOGY NURSE Respiratory Rate 16 01/10/2018 3:14 PM ONCOLOGY NURSE Oxygen Saturation 100% 01/10/2018 3:14 PM ONCOLOGY NURSE Inhaled Oxygen Concentration - - Weight 63.5 kg (140 lb) 01/10/2018 2:02 PM ONCOLOGY NURSE Height 157.5 cm (5' 2 ) 01/10/2018 2:02 PM ONCOLOGY NURSE Body Mass Index 25.61 01/10/2018 2:02 PM ONCOLOGY NURSE documented in this encounter Discharge Instructions * Attachments The following attachments cannot be sent through Care Everywhere. * Lightheadedness or Faintness (Ugandan) * Myalgia (Ugandan) documented in this encounter Medications at Time of Discharge Medication Sig Dispensed Refills Start Date End Date medroxyPROGESTERone (PROVERA) 10 mg tablet Take 10 mg by mouth daily. 04/13/2018 valACYclovir (VALTREX) 1 gram tablet Take 1,000 mg by mouth 2 times daily. 04/27/2020 tobramycin (TOBREX) 0.3 % solution 1 Drop every 4 hours. 04/13/2018 documented as of this encounter ED Notes * Judit Smallwood PA - 01/10/2018 1:57 PM CST HISTORY OF PRESENT ILLNESS Carito Rausch, a 27 y.o. female presents to the ED with a Chief Complaint of Dizziness Subjective Pt is 27 yo CF with near syncopal episode while sitting at work [employer]IST[employer] w/o exertional activity prior to episode. Not associated with chest pain, dyspnea, palpitations, fever/chills, N/T, weakness. 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 She is concerned about the amount of blood that was taken yesterday at her rheumatology evaluation. REVIEW OF SYSTEMS Review of Systems Constitutional: Negative for activity change, appetite change, chills, diaphoresis, fatigue and fever. HENT: Negative for congestion, ear discharge, ear pain, nosebleeds, sore throat and trouble swallowing. Eyes: Negative for photophobia, pain, discharge and visual disturbance. Respiratory: Negative for cough, chest tightness, shortness of breath and wheezing. Cardiovascular: Negative for chest pain, palpitations and leg swelling. Gastrointestinal: Negative for abdominal distention, abdominal pain, diarrhea, nausea and vomiting. Endocrine: Negative for cold intolerance and heat intolerance. Genitourinary: Negative for dysuria, frequency and hematuria. Musculoskeletal: Positive for arthralgias and myalgias. Negative for back pain, gait problem, jointswelling, neck pain and neck stiffness. Skin: Negative for pallor and rash. Allergic/Immunologic: Negative for food allergies and immunocompromised state. Neurological: Positive for dizziness and light-headedness. Negative for syncope, facial asymmetry, weakness, numbness and headaches. Hematological: Negative for adenopathy. Does not bruise/bleed easily. Psychiatric/Behavioral: Negative for behavioral problems, confusion, hallucinations and self-injury. PAST MEDICAL HISTORY REVIEWED MEDICAL: Patient has a past medical history of Patient denies relevant medical history. SURGICAL: Patient has a past surgical history that includes hx appendectomy. FAMILY: Patient's family history is not on file. SOCIAL: reports that she has been smoking Cigarettes. She has been smoking about 0.25 packs per day. She has never used smokeless tobacco. She reports that she drinks alcohol. She reports that she uses drugs, including Marijuana. No history on file. Social History Other Topics Concern ??? Not on file PROBLEM LIST: Patient does not have a problem list on file. ALLERGIES Patient has no known allergies. HOME MEDICATIONS Patient's Home Medications Current Home Medications HYDROCODONE-ACETAMINOPHEN (NORCO) 5-325 MG TABLET MEDROXYPROGESTERONE (PROVERA) 10 MG TABLET TOBRAMYCIN (TOBREX) 0.3 % SOLUTION VALACYCLOVIR (VALTREX) 1 GRAM TABLET Medications Modified during this Encounter Medications Discontinued during this Encounter Objective PHYSICAL EXAM INITIAL VS BP: (!) 149/99 (01/10/18 1402), Heart Rate: 95 bpm (01/10/18 1402), Resp: 18 (01/10/18 1402), Temp:98 ??F (36.7 ??C) (01/10/18 1402), Temp src: Oral (01/10/18 1402), SpO2: 99 % (01/10/18 1402), Height: 5' 2 (157.5 cm) (01/10/18 1402), Weight: 63.5 kg (140 lb) (01/10/18 1402), BMI (Calculated): 25.6 (01/10/18 1402) No LMP recorded. Physical Exam Constitutional: She is oriented to person, place, and time. She appears well- developed and well-nourished. No distress. HENT: Head: Normocephalic and atraumatic. Right Ear: External ear normal. Left Ear: External ear normal. Mouth/Throat: Oropharynx is clear and moist. No oropharyngeal exudate. Eyes: Pupils are equal, round, and reactive to light. Conjunctivae and EOM are normal. Neck: Normal range of motion. Neck supple. Cardiovascular: Normal rate, regular rhythm, normal heart sounds and intact distal pulses. No murmur heard. Pulmonary/Chest: Effort normal and breath sounds normal. She has no wheezes. She has no rales. She exhibits no tenderness. Abdominal: Soft. Bowel sounds are normal. She exhibits no distension and no mass. There is no tenderness. There is no rebound and no guarding. Musculoskeletal: Normal range of motion. She exhibits no edema, tenderness or deformity. Lymphadenopathy: She has no cervical adenopathy. Neurological: She is alert and oriented to person, place, and time. She has normal strength and normal reflexes. No cranial nerve deficit or sensory deficit. She exhibits normal muscle tone. She displays a negative Romberg sign. Coordination normal. GCS eye subscore is 4. GCS verbal subscore is 5. GCS motor subscore is 6. Skin: Skin is warm and dry. Capillary refill takes less than 2 seconds. No rash noted. She is not diaphoretic. No erythema. No pallor. Psychiatric: She has a normal mood and affect. Her behavior is normal. Vitals reviewed. DIAGNOSTICS LAB: CBC WITH DIFFERENTIAL - Abnormal Result Value WBC 8.4 RBC 4.20 HEMOGLOBIN 9.5 (*) HEMATOCRIT 29.7 (*) MCV 70.9 (*) MCH 22.6 (*) MCHC 31.9 (*) RDW 22.4 (*) PLATELETS 401 MPV 7.5 (*) NEUTROPHILS 91 (*) LYMPHOCYTES 7 (*) MONOCYTES 2 (*) EOSINOPHILS 0 BASOPHILS 0 IMMATURE GRANULOCYTES 0 NEUTROPHIL ABSOLUTE 7.70 (*) LYMPHOCYTE ABSOLUTE 0.60 MONOCYTE ABSOLUTE 0.10 EOSINOPHIL ABSOLUTE 0.00 BASOPHILS ABSOLUTE 0.00 IMMATURE GRANULOCYTES ABSOLUTE 0.00 COMPREHENSIVE METABOLIC PANEL - Abnormal SODIUM 139 POTASSIUM 4.1 CHLORIDE 101 CO2 22 CALCIUM 9.3 BUN 12 CREATININE 0.61 GLUCOSE 116 (*) TOTAL PROTEIN 7.7 ALBUMIN 4.3 BILIRUBIN TOTAL 0.2 ALKALINE PHOSPHATASE 49 AST 26 ALT 25 GFR >60 GFR, >60 ANION GAP 16 URINALYSIS WITH REFLEX CULTURE - Abnormal COLOR UA Pale Yellow CLARITY UA Clear SPECIFIC GRAVITY UA 1.013 PH UA 8.0 LEUKOCYTE ESTERASE UA Trace (*) NITRITE UA Negative PROTEIN UA Negative GLUCOSE UA Negative KETONES UA Negative UROBILINOGEN UA Normal BILIRUBIN UA Negative BLOOD UA Negative Ascorbic Acid UA Negative TSH - Normal TSH 0.99 HCG QUALITATIVE, BLOOD - Normal HCG QUAL, BLOOD Negative DRUG SCREEN, URINE - Normal AMPHETAMINE QUAL, URINE Negative BARBITURATE QUAL, URINE Negative BENZODIAZEPINE QUAL, URINE Negative COCAINE QUAL URINE Negative OPIATE QUAL, URINE Negative CANNABINOIDS QUAL, URINE Negative PCP QUAL, URINE Negative OXYCODONE QUAL, URINE Negative METHADONE QUAL, URINE Negative CREATININE, URINE 49.8 CK - Normal CK 45 RADIOLOGY: No orders to display EKG: Results for orders placed or performed during the hospital encounter of 01/10/18 EKG 12-LEAD Result Value Ref Range VENTRICULAR RATE 93 BPM ATRIAL RATE 93 BPM P-R INTERVAL 124 ms QRS DURATION 74 ms Q-T INTERVAL 354 ms QTC CALCULATION(BEZET) 440 ms P AXIS 43 degrees R AXIS 28 degrees T AXIS 7 degrees RESULT Normal sinus rhythm Normal ECG When compared with ECG of 21-FEB-2014 10:53, Vent. 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 She is currently being managed w/TID prednisone w/improvement of joint/muscle pain. VSS/hemodynamically intact. Labs w/stable H/H and no other abnormality as source of her sx today. EKG NSR. Suspect this may be 2/2 to recent start of steroid use and she is advised to discuss withher fleet administrator. Given normal EKG/Labs acute source of her sx is not likely. Initially BP was noted to be elevated however pt very anxious on arrival and repeat BP 120/76. Will plan to d/c to home. She is advised to f/u with her PCP/fleet administrator to discuss her sx. Patient advised regarding concerning signs and symptoms, return precautions. I ensured understanding of instructions utilizing teach-back. Will follow up. Agrees with plan for discharge. Diagnostic Considerations: DIff Dx: Adverse medication affect, anxiety/panicd disorder, anemia, electrolyte/metabolic abnormality, , substance abuse, anemia. . New Prescriptions for this Encounter ONDANSETRON (ZOFRAN) 4 MG TABLET Take 1 Tablet (4 mg) by mouth every 8 hours as needed for Nausea. LAST VS BP: 120/76 (01/10/18 1514), Heart Rate: 90 bpm (01/10/18 151), Resp: 16 (01/10/18 151), Temp: 98 ??F (36.7 ??C) (01/10/18 1402), Temp src: Oral (01/10/18 1402), SpO2: 100 % (01/10/18 1514) CLINICAL IMPRESSION Final diagnoses: [R55] Near syncope (Primary) [Z87.39] History of joint pain [Z87.39] History of muscle pain DISPOSITION, EDUCATION AND MEDICATION RECONCILIATION Medications reconciled. See after visit summary for patient education on discharged patients. ED Disposition ED Disposition Condition User Date/Time Comment Discharge Judit Ayers PA Rachel Jan 10, 2018 3:15 PM ATTESTATION STATEMENTS LOGY NURSE documented in this encounter Plan of Treatment Not on file documented as of this encounter Procedures Procedure Name Priority Date/Time Associated Diagnosis Comments URINALYSIS WITH REFLEX CULTURE Stat 01/10/2018 2:22 PM ONCOLOGY NURSE DRUG SCREEN, URINE Stat 01/10/2018 2: 21 PM ONCOLOGY NURSE HCG QUALITATIVE, SERUM Stat 8 2:11 PM ONCOLOGY NURSE CBC WITH DIFFERENTIAL Stat 01/10/2018 2:11 PM ONCOLOGY NURSE TSH Stat 01/10/2018 2:11 PM ONCOLOGY NURSE CK Stat 01/10/2018 2:11 PM ONCOLOGY NURSE COMPREHENSIVE METABOLIC PANEL Stat 01/10/2018 2:11 PM ONCOLOGY NURSE documented in this encounter Results * (ABNORMAL) URINALYSIS WITH REFLEX CULTURE (01/10/2018 2:22 PM ONCOLOGY NURSE) COLOR UA Pale Yellow Pale to Dark Yellow 01/10/2018 2:45 PM ONCOLOGY NURSE [facility] CLARITY UA Clear Clear 01/10/2018 2:45 PM [facility] SPECIFIC GRAVITY UA 1.013 1.003 - 1.035 01/10/2018 2:45 PM [facility] PH UA 8.0 5.0 - 8.0 01/10/2018 2:45 PM [facility] LEUKOCYTE ESTERASE UA Trace(A) Negative 01/10/2018 2:45 PM ONCOLOGY NURSE [facility] Comment: For patients with 'trace' results, consider ordering a culture and sensitivity if clinically indicated. NITRITE UA Negative Negative 01/10/2018 2:45 PM [facility] PROTEIN UA Negative Negative 01/10/2018 2:45 PM [facility] GLUCOSE UA Negative Negative 01/10/2018 2:45 PM [facility] KETONES UA Negative Negative 01/10/2018 2:45 PM [facility] UROBILINOGEN UA Normal <2.0 mg/dL 8 2:45 PM ONCOLOGY NURSE [facility] BILIRUBIN UA Negative Negative 01/10/2018 2:45 PM [facility] BLOOD UA Negative Negative 01/10/2018 2:45 PM [facility] Ascorbic Acid UA Negative Negative 01/11/20 18 2:45 PM ONCOLOGY NURSE [facility] Urine URINE SPECIMEN OBTAINED BY CLEAN CATCH PROCEDURE / Unknown Collection / Unknown 01/10/2018 2:22 PM ONCOLOGY NURSE 01/10/2018 2:26 PM ONCOLOGY NURSE Judit CAGLE URINE ORDERABLES [facility] CLIA# [id number] [place] [address] * DRUG SCREEN, URINE (01/10/2018 2:21 PM ONCOLOGY NURSE) AMPHETAMINE QUAL, URINE Negative Negative 01/10/2018 3:17 PM ONCOLOGY NURSE [facility] BARBITURATE QUAL, URINE Negative Negative 01/10/2018 3:17 PM ONCOLOGY NURSE [facility] BENZODIAZEPINE QUAL, URINE Negative Negative 01/10/2018 3:17 PM ONCOLOGY NURSE [facility] COCAINE QUAL URINE Negative Negative 2017 3:17 PM ONCOLOGY NURSE [facility] OPIATE QUAL, URINE Negative Negative 2017 3:17 PM ONCOLOGY NURSE [facility] CANNABINOIDS QUAL, URINE Negative Negative 01/10/2018 3:17 PM ONCOLOGY NURSE [facility] PCP QUAL, URINE Negative Negative 8 3:17 PM ONCOLOGY NURSE [facility] OXYCODONE QUAL, URINE Negative Negative 01/10/2018 3:17 PM ONCOLOGY NURSE [facility] METHADONE QUAL, URINE Negative Negative 01/10/2018 3:17 PM ONCOLOGY NURSE [facility] CREATININE, URINE 49.8 29.0 - 226.0 mg/dL 01/10/2018 3:17 PM ONCOLOGY NURSE [facility] Comment: Reference Range varies with fluid intake and diet. Urine URINE SPECIMEN OBTAINED BY CLEAN CATCH PROCEDURE / Unknown Collection / Unknown 01/10/2018 2:21 PM ONCOLOGY NURSE 01/10/2018 2:41 PM ONCOLOGY NURSE Judit CAGLE URINE ORDERABLES [facility] CLIA# [id number] [place] [address] * CK (01/10/2018 2:11 PM ONCOLOGY NURSE) CK 45 20 - 180 U/L 01/10/2018 2:50 PM ONCOLOGY NURSE [facility] Blood Venipuncture / Unknown 01/10/2018 2:11 PM ONCOLOGY NURSE 01/10/2018 2:18 PM ONCOLOGY NURSE Judit CAGLE CHEMISTRY ORDERABLES [facility] CLIA# [id number] [place] [address] * HCG QUALITATIVE, BLOOD (01/10/2018 2:11 PM ONCOLOGY NURSE) Pathologist [facility] HCG QUAL, BLOOD Negative Negative 01/10/2018 2:47 PM ONCOLOGY NURSE [facility] Blood Venipuncture / Unknown 01/10/2018 2:11 PM ONCOLOGY NURSE 01/10/2018 2:15 PM ONCOLOGY NURSE Judit CAGLE CHEMISTRY ORDERABLES [facility] [place] [facility] CLIA# [id number] [place] [address] * TSH (01/10/2018 2:11 PM ONCOLOGY NURSE) [facility] TSH 0.99 0.27 - 4.20 uIU/mL 01/10/2018 2:55 PM ONCOLOGY NURSE [facility] [place] [facility] Blood Venipuncture / Unknown 01/10/2018 2:11 PM ONCOLOGY NURSE 01/10/2018 2:18 PM ONCOLOGY NURSE Judit CAGLE CHEMISTRY ORDERABLES [facility] [place] [id number] [place] [address] * (ABNORMAL) COMPREHENSIVE METABOLIC PANEL (01/10/2018 2:11 PM ONCOLOGY NURSE) [facility] SODIUM 139 136 - 145 mmol/L 01/10/2018 2:49 PM ONCOLOGY NURSE [facility] POTASSIUM 4.1 3.4 - 5.1 mmol/L 01/10/2018 2:49 PM ONCOLOGY NURSE [facility] CHLORIDE 101 98 - 107 mmol/L 01/10/2018 2:49 PM ONCOLOGY NURSE [facility] CO2 22 22 - 30 mmol/L 01/10/2018 2:49 PM ONCOLOGY NURSE [facility] CALCIUM 9.3 8.6 - 10.4 mg/dL 01/10/2018 2:49 PM [facility] BUN 12 6 - 20 mg/dL 01/10/2018 2:49 PM [facility] CREATININE 0.61 0.50 - 1.00 mg/dL 01/10/2018 2:49 PM [facility] GLUCOSE 116(H) 74 - 99 mg/dL 01/10/2018 2:49 PM [facility] TOTAL PROTEIN 7.7 6.3 - 8.7 g/dL 01/10/2018 2:49 PM [facility] ALBUMIN 4.3 3.5 - 5.2 g/dL 01/10/2018 2:49 PM [facility] BILIRUBIN TOTAL 0.2 0.2 - 1.3 mg/dL 01/10/2018 2:49 PM [facility] ALKALINE PHOSPHATASE 49 40 - 150 U/L 01/10/2018 2:49 PM [facility] AST 26 0 - 33 U/L 01/10/2018 2:49 PM [facility] ALT 25 0 - 33 U/L 01/10/2018 2:49 PM [facility] GFR >60 >=60 mL/min/1.7 3 sq meter 01/10/2018 2:49 PM [facility] Comment: eGFR has not been validated [...] GFR, >60 >=60 mL/min/1.7 3 sq meter 01/10/2018 2:49 PM [facility] ANION GAP 16 8 - 16 mmol/L 01/10/2018 2:49 PM [facility] Blood Venipuncture / Unknown 01/10/2018 2:11 PM ONCOLOGY NURSE 01/10/2018 2:18 PM ONCOLOGY NURSE Judit CAGLE CHEMISTRY ORDERABLES [facility] CLIA# [id number] [place] [address] * (ABNORMAL) CBC WITH DIFFERENTIAL (01/10/2018 2:11 PM ONCOLOGY NURSE) WBC 8.4 4.5 - 10.5 K/uL 01/10/2018 2:24 PM ONCOLOGY NURSE [facility] RBC 4.20 3.90 - 4.90 M/uL 01/10/2018 2:24 PM [facility] HEMOGLOBIN 9.5(L) 11.8 - 14.8 g/dL 01/10/2018 2:24 PM [facility] HEMATOCRIT 29.7(L) 35.5 - 44.0 % 01/10/2018 2:24 PM [facility] MCV 70.9(L) 82.0 - 99.0 fL 01/10/2018 2:24 PM [facility] MCH 22.6(L) 27.8 - 34.5 pg 01/10/2018 2:24 PM [facility] MCHC 31.9(L) 32.5 - 35.5 g/dL 01/10/2018 2:24 PM [facility] RDW 22.4(H) 11.5 - 14.5 % 01/10/2018 2:24 PM [facility] PLATELETS 401 160 - 420 K/uL 01/10/2018 2:24 PM [facility] MPV 7.5(L) 8.7 - 12.7 fL 01/10/2018 2:24 PM [facility] NEUTROPHILS 91(H) 45 - 70 % 01/10/2018 2:24 PM [facility] LYMPHOCYTES 7(L) 16 - 45 % 01/10/2018 2:24 PM ONCOLOGY NURSE [facility] MONOCYTES 2(L) 3 - 13 % 01/10/2018 2:24 PM [facility] EOSINOPHILS 0 0 - 7 % 01/10/2018 2:24 PM [facility] BASOPHILS 0 0 - 2 % 01/10/2018 2:24 PM [facility] IMMATURE GRANULOCYTES 0 0 - 5 % 01/10/2018 2:24 PM [facility] NEUTROPHIL ABSOLUTE 7.70(H) 1.90 - 7.00 K/uL 01/10/2018 2:24 PM ONCOLOGY NURSE [facility] LYMPHOCYTE ABSOLUTE 0.60 K/uL 01/10/2018 2:24 PM ONCOLOGY NURSE [facility] MONOCYTE ABSOLUTE 0.10 K/uL 018 2:24 PM [facility] EOSINOPHIL ABSOLUTE 0.00 0.00 - 0.70 K/uL 01/10/2018 2:24 PM [facility] BASOPHILS ABSOLUTE 0.00 K/uL 01/10/2018 2:24 PM ONCOLOGY NURSE [facility] IMMATURE GRANULOCYTES ABSOLUTE 0.00 K/uL 01/10/2018 2:24 PM [facility] Blood Venipuncture / Unknown 01/10/2018 2:11 PM ONCOLOGY NURSE 01/10/2018 2:15 PM ONCOLOGY NURSE Judit CAGLE HEMATOLOGY ORDERABLE S [facility] CLIA# [id number] [place] [address] * AL ECG ROUTINE ECG W/LEAST 12 LDS W/I&R (01/10/2018 2:05 PM ONCOLOGY NURSE) VENTRICULAR RATE 93 BPM INTERFACE SYSTEM ATRIAL RATE 93 BPM INTERFAC E SYSTEM P-R INTERVAL 124 ms INTERFA CE SYSTEM QRS DURATION 74 ms INTERFA CE SYSTEM Q-T INTERVAL 354 ms INTERFA CE SYSTEM QTC CALCULATION(BE ZET) 440 ms INTERFACE SYSTEM P AXIS 43 degrees INTERFACE SYSTEM R AXIS 28 degrees INTERFACE SYSTEM T AXIS 7 degrees INTERFACE SYSTEM RESULT Normal sinus rhythm Normal ECG When compared with ECG of 21-FEB-2014 10:53, Vent. rate has increased BY ??36 BPM Nonspecific T wave abnormality now evident in Anterolateral leads Confirmed by ESTRELLA HECTOR MD ([id number]) on 01/10/2018 3:36:46 PM INTERFACE SYSTEM 01/10/2018 2:05 PM ONCOLOGY NURSE 01/10/2018 3:36 PM ONCOLOGY NURSE Narrative INTERFACE SYSTEM - 01/10/2018 3:36 PM ONCOLOGY NURSE Kristie Casey MD ? 02/17/2018 ??6:08 PM EKG obtained NSR however lead v6 with lots of artifact repeated multiple times with no improvement. ??No ST elevation or significant ST depression. ??Repeat EKG shows possible ST non specific changes. Procedure Note Estrella Hector MD / Provider, Historical - 07/06/2020 Kristie Casey MD 02/17/2018 6:08 PM EKG obtained NSR however lead v6 with lots of artifact repeated multiple times with no improvement. No ST elevation or significant ST depression. Repeat EKG shows possible ST non specific changes. Protocol [facility] MD ECG ORDERABLE S INTERFACE SYSTEM Refer to clinic/hospital department documented in this encounter Visit Diagnoses Diagnosis Near syncope- Primary Syncope and collapse History of joint pain History of muscle pain documented in this encounter Care Teams Chronometer Adjuster Relationship Specialty Start Date End Date Huseyin Dangelo MD PCP - General 09/29/17 07/14/19 documented as of this encounter
--- OUTSIDE RECORDS SUMMARY | 2024-02-24 20:39 | XMS_ITS | Encounter Summary ---
Author Organization [facility] Address [address] [place] [address] Care Team Providers Care Child Custody Evaluator Name Role Phone Huseyin Dangelo MD Primary Care Provider [phone] Reason for Visit * Reason Comments Chest Pain Encounter Details Date Type Department Care Team (Late st Contact Info) Description 02/17/2018 1:10 PM ALLIGATOR HUNTER Office Visit [facility] [address] [address] Kristie Casey MD [facility] [address] Chest pain, unspecified type (Primary Dx); Anxiety state; Cocaine use Social History Tobacco Use Types Packs/Day Years Used Date Smoking Tobacco: Some Days Cigarettes Smokeless Tobacco: Never Tobacco Cessation:Counseling Given: No Alcohol Use Standard Drinks/Week Comments Yes 0 (1 standard drink = 0.6 oz pur e alcohol) Sex and Gender Information Value Date Recorded Sex Assigned at Not on file Gender Identity Not on file Sexual Orientation Not on file documented as of this encounter Last Filed Vital Signs Vital Sign Reading Time Taken Comments Blood Pressure 120/80 02/17/2018 1:10 PM ALLIGATOR HUNTER Pulse 112 02/17/2018 1:10 PM ALLIGATOR HUNTER Temperature 37 ??C (98.6 ??F) 02/17/2018 1:10 PM ALLIGATOR HUNTER Respiratory Rate 18 02/17/2018 1:10 PM ALLIGATOR HUNTER Oxygen Saturation 99% 02/17/2018 1:10 PM ALLIGATOR HUNTER Inhaled Oxygen Concentration - - Weight 68.5 kg (151 lb) 02/17/2018 1:10 PM ALLIGATOR HUNTER Height 157.5 cm (5' 2 ) 02/17/2018 1:10 PM ALLIGATOR HUNTER Body Mass Index 27.62 02/17/2018 1:10 PM ALLIGATOR HUNTER documented in this encounter Progress Notes * Kristie Casey MD - 02/17/2018 2:05 PM CST HISTORY OF PRESENT ILLNESS Carito Rausch, a 27 y.o. female presents with a Chief Complaint of No chief complaint on file. Subjective 27yo F with lupus on here with chest nervousness . She denies any pain but reports that her chest feels funny . She does report that she did a small line of cocaine for the first time about 10 hours ago. Her chest symptoms started 2 hours ago. She is very anxious about this and not sure if it is anxiety. She reports dyspnea with symptoms initially but denies any current dyspnea. There is no PND, orthopnea, edema. She denies any family history of cardiac disease. Parents are due to domestic violence murder suicide. Past Medical History: Diagnosis Date ??? Patient denies relevant medical history Past Surgical History: Procedure Laterality Date ??? HX APPENDECTOMY Social History Substance Use Topics ??? Smoking status: Current Some Day Smoker Packs/day: 0.25 Types: Cigarettes ??? Smokeless tobacco: Never Used ??? Alcohol use Yes No family history on file. Current Outpatient Prescriptions on File Prior to Visit Medication Sig Dispense Refill ??? ondansetron (ZOFRAN) 4 mg Tablet Take 1 Tablet (4 mg) by mouth every 8 hours as needed for Nausea. 15 Tablet None ??? HYDROcodone-acetaminophen (NORCO) 5-325 mg tablet Take 1 Tablet by mouth every 4 hours as needed for Pain. Max Daily Amount: 6 Tablets 20 Tablet 0 ??? medroxyPROGESTERone (PROVERA) 10 mg tablet Take 10 mg by mouth daily. ??? valACYclovir (VALTREX) 1 gram tablet Take 1,000 mg by mouth 2 times daily. ??? tobramycin (TOBREX) 0.3 % solution 1 Drop every 4 hours. No current facility-administered medications on file prior to visit. REVIEW OF SYSTEMS Review of Systems Constitutional: Negative for fever. Respiratory: Positive for shortness of breath. Cardiovascular: Positive for chest pain and palpitations. Negative for leg swelling. Gastrointestinal: Negative for nausea and vomiting. Musculoskeletal: Negative for arthralgias. Skin: Negative for color change. Neurological: Negative for dizziness, light-headedness and headaches. Psychiatric/Behavioral: The patient is nervous/anxious. Objective PHYSICAL EXAM BP 120/80 Pulse (!) 112 Temp 98.6 ??F (37 ??C) Resp 18 Ht 5' 2 (1.575 m) Wt 68.5 kg (151lb) LMP 01/14/2018 SpO2 99% ? No BMI 27.62 kg/m?? Physical Exam Constitutional: She is oriented to person, place, and time. She appears well- developed and well-nourished. HENT: Head: Normocephalic and atraumatic. Eyes: Pupils are equal, round, and reactive to light. EOM are normal. Neck: Normal range of motion. Neck supple. Cardiovascular: Normal rate, regular rhythm and normal heart sounds. Pulmonary/Chest: Effort normal and breath sounds normal. No respiratory distress. She has no wheezes. Abdominal: Soft. Bowel sounds are normal. There is no tenderness. There is no guarding. Musculoskeletal: Normal range of motion. Neurological: She is alert and oriented to person, place, and time. Skin: Skin is warm. Procedures EKG obtained NSR however lead v6 with lots of artifact repeated multiple times with no improvement.No ST elevation or significant ST depression. Repeat EKG shows possible ST non specific changes. Assessment ASSESSMENT and PLAN: ICD-10-CM ICD-9-CM 1. Chest pain, unspecified type R07.9 786.50 EKG 12-LEAD 2. Anxiety state F41.1 300.00 3. Cocaine use F14.90 305.60 See patient instructions for further information. EKG obtained no signs of acute ST elevation or depression Vitals stable Recommend ED for further evaluation Patient opts to go via private vehicle GATOR HUNTER * Chelsie Pete - 02/17/2018 1:47 PM CST Patient states she did cocaine and now she is having chest pains but she is not sure if it is anxiety. Did EKG and lead 6 was not working properly. Historian Patient GATOR HUNTER documented in this encounter Procedure Notes * Kristie Casey MD - 02/17/2018 1:58 PM CSTAssociated Order(s): EKG 12-LEAD Procedure(s): WA ECG ROUTINE ECG W/LEAST 12 LDS W/I&R EKG obtained NSR however lead v6 with lots of artifact repeated multiple times with no improvement.No ST elevation or significant ST depression. Repeat EKG shows possible ST non specific changes. GATOR HUNTER documented in this encounter Plan of Treatment Scheduled Orders Name Type Priority Associated Diagnoses Orde r Schedule EKG 12-LEAD ECG Routine Chest pain, unspecified type Ordered: 02/17/2018 documented as of this encounter Procedures Procedure Name Priority Date/Time Associated Diagnosis Comments WA ECG ROUTINE ECG W/LEAST 12 LDS W/I&R Stat 01/10/2018 2:05 PM ALLIGATOR HUNTER documented in this encounter Visit Diagnoses Diagnosis Chest pain, unspecified type- Primary Anxiety state Anxiety state, unspecified Cocaine use Cocaine abuse, unspecified documented in this encounter Care Teams Child Custody Evaluator Relationship Specialty Start Date End Date Huseyin Dangelo MD PCP - General 09/29/17 07/14/19 documented as of this encounter
--- OUTSIDE RECORDS SUMMARY | 2024-02-24 20:39 | XMS_ITS | Encounter Summary ---
Author Organization [facility] Address [address] [place] [address] Care Team Providers Care Senior Analyst Market Intelligence Name Role Phone Huseyin Dangelo MD Primary Care Provider [phone] Reason for Visit * Reason Onset Date Comments Hospital Follow Up 07/17/2018 Encounter Details Date Type Department Care Team (Late st Contact Info) Description 07/17/[address] [facility] Management [id number] [place] [phone] Katie Dixon LPN Hospital Follow Up Social History Tobacco Use Types [...] Miscellaneous Notes * Telephone Encounter - Katie Dixon LPN - 07/17/2018 1:56 PM CDT Hospital Discharge Date: 07/12/2018 Patient met criteria for: Non-priority Call Status: No answer documented in this encounter Plan of Treatment Not on file documented as of this encounter Visit Diagnoses Not on filedocumented in this encounter Care Teams Senior Analyst Market Intelligence Relationship Specialty Start Date End Date Huseyin Dangelo MD PCP - General 09/29/17 07/14/19 documented as of this encounter
--- OUTSIDE RECORDS SUMMARY | 2024-02-24 20:39 | XMS_ITS | Encounter Summary ---
Author Organization [facility] Address [address] [place] [address] Care Team Providers Care Marionette Performer Name Role Phone Huseyin Dangelo MD Primary Care Provider [phone] Encounter Details Date Type Department Care Team (Latest Contact Info) Description 03/28/2018 Transcribe Orders Central Test Scheduling [address] [place] [address] Ernie Strickland MD [address] [place] [address] Arthralgia of multiple sites (Primary Dx) Social History Tobacco Use Types [...] as of this encounter Visit Diagnoses Diagnosis Arthralgia of multiple sites- Primary Pain in joint, multiple sites documented in this encounter Care Teams Marionette Performer Relationship Specialty Start Date End Date Huseyin Dangelo MD PCP - General 09/29/17 07/14/19 documented as of this encounter
--- OUTSIDE RECORDS SUMMARY | 2024-02-24 20:39 | XMS_ITS | Encounter Summary ---
Author Organization [facility] Address [address] [place] [address] Care Team Providers Care District Medical Examiner Name Role Phone Huseyin Dangelo MD Primary Care Provider [phone] Reason for Visit * Reason Comments Letter for School/Work Encounter Details Date Type Department Care Team (Latest Contact Info) Description 04/13/2018 10:37 AM OCCUPATIONAL HEALTH NURSE - 04/13/2018 11:12 AM OCCUPATIONAL HEALTH NURSE Hospital Encounter [facility] [address] [place] [address] Vomiting and diarrhea (Primary Dx) Discharge Disposition: Home or Self [...] Sign Reading Time Taken Comments Blood Pressure 124/68 04/13/2018 10:43 AM OCCUPATIONAL HEALTH NURSE Pulse 74 04/13/2018 10:43 AM OCCUPATIONAL HEALTH NURSE Temperature 36.4 ??C (97.5 ??F) 04/13/2018 10:[address] Respiratory Rate 16 04/13/2018 10:43 AM OCCUPATIONAL HEALTH NURSE Oxygen Saturation 98% 04/13/2018 10:43 AM OCCUPATIONAL HEALTH NURSE Inhaled Oxygen Concentration - - Weight 61.2 kg (135 lb) 04/13/2018 10:43 AM OCCUPATIONAL HEALTH NURSE Height 154.9 cm (5' 1 ) 04/13/2018 10:43 AM OCCUPATIONAL HEALTH NURSE Body Mass Index 25.51 04/13/2018 10:43 AM OCCUPATIONAL HEALTH NURSE documented in this encounter Discharge Instructions * Discharge Instructions* Hanh Travis, MELINDA - 04/13/2018 11:12 AM OCCUPATIONAL HEALTH NURSE Please call your primary care physician, Huseyin Dangelo MD to follow-up 48-72 hours if you are not getting better. If your symptoms worsen please go directly to your closest Emergency Department orsteele 911. If you do not have a primary doctor, [facility] offers a free referral service by calling [phone], , or toll free . This information can also be accessed on the web at [email or web address]. If a test or physician referral was ordered for you today, you can schedule these by calling Central Testing Scheduling (CTS),[phone], or Central Referral Scheduling (CRS), during normal work hours. Inform them you had a test or referral ordered during your visit at the [facility]. If you are female and on hormone based control there is a slight increase in risk with the use of antibiotics, the patient is asked to back up her OCP with condom or other method during this (or any) cycle during which she is taking antibiotics. Thank you for choosing to the [facility] [place] [address] [place] [address] [place] [address] [phone] [place] [address] [place] [address] [place] [address] IMPORTANT: You were examined and treated today on an urgent basis. This was not a substitute for, nor an effort to provide, complete and ongoing medical care. On arrival to [facility], you may have reported taking home medications that will be listed on your After Visit Summary. If applicable, this regimen is not being changed, except as noted and discussed with you. You should follow up with your primary care physician for ongoing medication management. This AVS (after visit summary) is a printed copy of the form that is part of your permanent electronic medical record. By accepting this form you acknowledge that your tests, diagnosis, treatment plan, and follow up care has been discussed with you by appropriate medical personnel. Thank-you again for choosing [facility] Care. PATIONAL HEALTH NURSE * Attachments The following attachments cannot be sent through Care Everywhere. * Nausea and Vomiting (Gibraltarian) * Diarrhea (Gibraltarian) documented in this encounter Medications at Time [...] daily. 04/27/2020 documented as of this encounter Nursing Notes * Fallon Jon RN - 04/13/2018 10:45 AM CST 27 y/o female presents with history of body aches 2 days ago. She started vomiting multiple times yesterday and then had diarrhea later in the day. She states she had some zofran left and has been taking it every 4 hours which allowed her to eat some soup. Her grandfather living with her has had same symptoms. She states she has mostly brought up bile colored liquid last night. She has not had a fever. 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 female, presents with {Symptoms; N/V/D Symptoms have been present sinceyesterday. Has had several episodes of vomiting and diarrhea up to 30 but Is doing better today Grandfather has had similar symptoms Patent is here because she needs a work note Treatments so far initiated by patient: zofran but is out Patient is + past gas. Last BM today Appetite: almost normal, no anorexia starting to eat some bland foods , taking liquids today ETOH use none Patient denies any abdominal trauma none Abdominal surgery hx: none If female, pt is NOT , Patient's last menstrual period was 03/30/2018. Past Medical History: Diagnosis Date ??? Connective tissue disease ??? Fibromyalgia ??? Lupus Past Surgical History: Procedure Laterality Date ??? HX APPENDECTOMY Social History Substance Use Topics ??? Smoking status: Former Smoker Packs/day: 0.25 Types: Cigarettes Quit date: 12/11/2017 ??? Smokeless tobacco: Never Used ??? Alcohol use Yes Comment: socially No family history on file. Patient's Home Medications Current Home Medications HYDROCODONE-ACETAMINOPHEN (NORCO) 5-325 MG TABLET HYDROXYCHLOROQUINE (PLAQUENIL) 200 MG TABLET ONDANSETRON (ZOFRAN) 4 MG TABLET PREDNISONE (DELTASONE) 5 MG TABLET VALACYCLOVIR (VALTREX) 1 GRAM TABLET Medications Modified during this Encounter Medications Discontinued during this Encounter MEDROXYPROGESTERONE (PROVERA) 10 MG TABLET TOBRAMYCIN (TOBREX) 0.3 % SOLUTION No Known Allergies Review of Systems Constitutional: Negative for chills and fever. HENT: Negative. Gastrointestinal: Positive for diarrhea, nausea and vomiting. Negative for abdominal distention andabdominal pain. Genitourinary: Negative for dysuria, flank pain, hematuria, pelvic pain, urgency and vaginal bleeding. Musculoskeletal: Positive for myalgias. Neurological: Negative for dizziness. Is voiding well Physical Exam BP 124/68 (BP Location: Left arm, Patient Position (BP): Sitting) Pulse 74 Temp 97.5 ??F (36.4 ??C) (Oral) Resp 16 Ht 5' 1 (1.549 m) Wt 61.2 kg (135 lb) LMP 03/30/2018 SpO2 98% BMI 25.51 kg/m?? Constitutional: well developed, well nourished Eye: normal conjunctivae ENT/Mouth: external ears clear, oral pharynx no swelling or exudates. Mucosa is moist CV: S1S2, regular rate and rhythm, no murmurs/rubs or gallops Respiratory: clear to auscultation bilaterally no wheezes/rhonchi/crackles GI: abdomen soft non tender : deferred Skin: dry, no rashes noted good skin turgor Musculoskeletal/Back: no ttp x 4 ext, back nontender midline, CVA non tender Extremities: No cyanosis, no edema. DP pulses 2+ bilateral Neurological: CN II-XII no deficits, upper and lower extremity strength 5/5 bilateral Psych: Pt is alert and oriented x3 w good recall and normal affect UC Course and Results Meds Given in UC none Medical Decision Making Note: Differential Dx: DDx includes: sbo, appy, colitis/diverticulitis, ureterolithiasis, uti, partial bowel obstruction, abdominal catastrophe, Data reviewed: Triage notes and available nursing notes reviewed. Previous medical record reviewed when available. All vital signs from the encounter reviewed PCP: Huseyin Dangelo MD Patient clinical presentation does not correlate with her Sx of multiple episodes of V/D Assessment and Plan ICD-10-CM ICD-9-CM 1. Vomiting and diarrhea R11.10 787.03 R19.7 787.91 Plan zofran 8 mg Fluids/rest Work note provided Take gatorade and make slushies , use popsickles, sip on fluids Discussed inability to fully evaluate this complaint in a UC setting. Discussed about going to ER for further evaluation, patient states they will wait and watch. Tylenol. Observe for pain If any worsening, fever, vomiting go to ER. Discussed diagnosis, usual course, recommended and/or prescribed medications and potential side effects, and reasons to seek repeat medical evaluation PATIONAL HEALTH NURSE Associated attestation - Amy Benson MD - 04/13/2018 5:28 PM OCCUPATIONAL HEALTH NURSE I, Amy Benson MD, attest that I have reviewed the mid level provider's note including the history, physical exam findings, assessment and plan. documented in this encounter Plan of Treatment Not on file documented as of this encounter Visit Diagnoses Diagnosis Vomiting and diarrhea- Primary Vomiting alone documented in this encounter Care Teams District Medical Examiner Relationship Specialty Start Date End Date Huseyin Dangelo MD PCP - General 09/29/17 07/14/19 documented as of this encounter
--- OUTSIDE RECORDS SUMMARY | 2024-02-24 20:39 | XMS_ITS | Encounter Summary ---
Author Organization [facility] Address [address] [place] [address] Care Team Providers Care Pbx Teacher Name Role Phone Brian Mon MD Primary Care Provider Encounter Details Date Type Department Care Team (Late st Contact Info) Description 08/02/2004 Outpatient [facility] [address] [place] [phone] Hanh Benavidez Social History Tobacco Use [...] documented as of this encounter Care Teams Pbx Teacher Relationship Specialty Start Date End Date Brian Mon MD [address] [place] [phone] (work) PCP - General Internal Medicine 07/15/19 documented as of this encounter
--- OUTSIDE RECORDS SUMMARY | 2024-02-24 20:39 | XMS_ITS | Encounter Summary ---
Author Organization [facility] Address [address] [place] [address] Care Team Providers Care Clinical Nursing Instructor Name Role Phone Huseyin Dangelo MD Primary Care Provider [phone] Reason for Visit * Reason Comments Chest Pain Encounter Details Date Type Department Care Team (Late st Contact Info) Description 02/17/2018 2:21 PM PERSONAL COMPUTER SPECIALIST - 02/17/2018 3:28 PM PERSONAL COMPUTER SPECIALIST Emergency [facility] Emergency Department [id number] [place] [address] Chest pain, unspecified type (Primary Dx); Cocaine use; Anxiety Discharge Disposition: Home or Self Care Social [...] Sign Reading Time Taken Comments Blood Pressure 132/85 02/17/2018 2:20 PM PERSONAL COMPUTER SPECIALIST Pulse - - Temperature 36.8 ??C (98.2 ??F) 02/17/2018 2:20 PM CS T Respiratory Rate 16 02/17/2018 2:20 PM PERSONAL COMPUTER SPECIALIST Oxygen Saturation 100% 02/17/2018 2:20 PM PERSONAL COMPUTER SPECIALIST Inhaled Oxygen Concentration - - Weight 65.8 kg (145 lb) 02/17/2018 2:20 PM PERSONAL COMPUTER SPECIALIST Height 157.5 cm (5' 2 ) 02/17/2018 2:20 PM PERSONAL COMPUTER SPECIALIST Body Mass Index 26.52 02/17/2018 2:20 PM PERSONAL COMPUTER SPECIALIST documented in this encounter Discharge Instructions * Discharge Instructions* Faraz Negro FNP - 02/17/2018 3:01 PM PERSONAL COMPUTER SPECIALIST YOU DECLINED TO STAY FOR A COMPLETE WORK UP. YOU AGREE TO RETURN TO THE ED WITH ANY WORSENING SYMPTOMS OR NEW CONCERNS I RECOMMEND AVOIDING COCAINE OR OTHER STIMULANT USE ONAL COMPUTER SPECIALIST documented in this encounter Medications at Time of Discharge Medication Sig Dispensed Refills Start Date End Date medroxyPROGESTERone (PROVERA) 10 mg tablet Take 10 mg by mouth daily. 04/13/2018 valACYclovir (VALTREX) 1 gram tablet Take 1,000 mg by mouth 2 times daily. 04/27/2020 tobramycin (TOBREX) 0.3 % solution 1 Drop every 4 hours. 04/13/2018 documented as of this encounter ED Notes * Marely Freedman RN - 02/17/2018 2:52 PM CST Pt states that she feels fine and that she thinks it was anxiety. Pt admits to trying cocaine last night for the first time and that is was awful . She states that she will never do that again and is regretting that decision to try it. She would like to leave and have someone call her with the results of her blood work. Will talk with BECK TENDER Marky. ONAL COMPUTER SPECIALIST * Darwin Walker - 02/17/2018 2:14 PM CST TB Screen instructions: Complete the TB screening [...] greater, initiate Airborne Isolation and contact provider. ONAL COMPUTER SPECIALIST * Faraz Negro FNP - 02/17/2018 2:13 PM CST HISTORY OF PRESENT ILLNESS Carito Rausch, a 27 y.o. female presents to the ED with a Chief Complaint of Chest Pain Subjective HPI Patient presents to the ED with c/o chest pain. Sent here from urgent care for further evaluation after presenting there for care. Patient denies cardiac hx but does admit to use of cocaine in the early hours today. Had never used before. Developed left anterior chest pain several hours after using. Denies any current discomfort. Denies any shortness of breath. No nausea or vomiting. Denies fevers or chills. Hx lupus, is on chronic steroid use. REVIEW OF SYSTEMS Review of Systems Cardiovascular: Positive for chest pain. Psychiatric/Behavioral: The patient is nervous/anxious. All other [...] She reports that she uses drugs, including Marijuana and Cocaine. No history on file. Social History Other Topics Concern ??? Not on file PROBLEM LIST: Patient does not have a problem list on file. ALLERGIES Patient has no known allergies. HOME MEDICATIONS Discharge Medication List as of 02/17/2018 3:01 PM CONTINUE these medications which have NOT CHANGED Details ondansetron (ZOFRAN) 4 mg Tablet Take 1 Tablet (4 mg) by mouth every 8 hours as needed for Nausea.,Disp-15 Tablet, R-None HYDROcodone-acetaminophen (NORCO) 5-325 mg tablet Take 1 Tablet by mouth every 4 hours as needed for Pain. Max Daily Amount: 6 Tablets, Disp-20 Tablet, R-0 medroxyPROGESTERone (PROVERA) 10 mg tablet Take 10 mg by mouth daily. valACYclovir (VALTREX) 1 gram tablet Take 1,000 mg by mouth 2 times daily. tobramycin (TOBREX) 0.3 % solution 1 Drop every 4 hours. Objective PHYSICAL EXAM INITIAL VS BP: 132/85 (02/17/18 1420), Heart Rate: 94 bpm (02/17/18 1420), Resp: 16 (02/17/18 1420), Pulse: (not recorded), Temp: 98.2 ??F (36.8 ??C) (02/17/181419), Temp src: Oral (02/17/181419), SpO2: 100 %(02/17/181419), Height: 5' 2 (157.5 cm) (02/17/180), Weight: 65.8 kg (145 lb) (02/17/18 1420), BMI (Calculated): 26.51 (02/17/18 1420) Patient's last menstrual period was 01/14/2018. Physical Exam Constitutional: She is oriented to person, place, and time. She appears well- developed and well-nourished. No distress. HENT: Head: Normocephalic and atraumatic. Right Ear: External ear normal. Left Ear: External ear normal. Eyes: Pupils are equal, round, and reactive to light. EOM are normal. Neck: Normal range of motion. Neck supple. Cardiovascular: Normal rate and regular rhythm. Pulmonary/Chest: Effort normal and breath sounds normal. No respiratory distress. Abdominal: Soft. Bowel sounds are normal. Musculoskeletal: Normal range of motion. Neurological: She is alert and oriented to person, place, and time. Skin: Skin is warm and dry. Capillary refill takes less than 2 seconds. Psychiatric: She has a normal mood and affect. Nursing note and vitals reviewed. DIAGNOSTICS LAB: CBC WITH DIFFERENTIAL - Abnormal Result Value WBC 8.8 RBC 4.11 HEMOGLOBIN 9.3 (*) HEMATOCRIT 29.7 (*) MCV 72.2 (*) MCH 22.5 (*) MCHC 31.2 (*) RDW 19.8 (*) PLATELETS 375 MPV 7.4 (*) NEUTROPHILS 78 (*) LYMPHOCYTES 14 (*) MONOCYTES 7 EOSINOPHILS 1 BASOPHILS 0 IMMATURE GRANULOCYTES 0 NEUTROPHIL ABSOLUTE 6.80 LYMPHOCYTE ABSOLUTE 1.20 MONOCYTE ABSOLUTE 0.60 EOSINOPHIL ABSOLUTE 0.10 BASOPHILS ABSOLUTE 0.00 IMMATURE GRANULOCYTES ABSOLUTE 0.00 COMPREHENSIVE METABOLIC PANEL - Abnormal SODIUM 141 POTASSIUM 3.5 CHLORIDE 104 CO2 21 (*) CALCIUM 9.5 BUN 8 CREATININE 0.69 GLUCOSE 90 TOTAL PROTEIN 7.8 ALBUMIN 4.2 BILIRUBIN TOTAL 0.4 ALKALINE PHOSPHATASE 54 AST 20 ALT 19 GFR >60 GFR, >60 ANION GAP 16 TROPONIN BASELINE, 5TH GEN - Normal TROPONIN T, BASELINE 5TH GEN 8 RADIOLOGY: No orders to display No orders to display EKG: PROCEDURES Procedures MEDICAL DECISION MAKING AND PLAN OF CARE MDM Diagnostic Considerations: Ddx: ACS, anxiety, depression, anxiety, myocarditis, intoxication I have reviewed current: labs and ECG Labs: Reviewed, negative ECG: No ischemic changes I have reviewed nursing notes related to past medical history, social history, and review of systems and agree, unless otherwise noted. Clinical Course: Patient arrives emergency department, no acute distress. Vital signs stable. Patient denies any current chest pain. Given recent cocaine use and onset of chest pain does warrant cardiac workup. Patient states that she is feeling fine and would like to discharge home without the workup, she does notwant to miss her family's elisabet celebration today. Did discuss risks of stimulant use. Attempted to encourage to stay for continued workup. Patient denies any current pain. Is declining to stay. States that she would like to be contacted with any abnormality in her labs. Agrees to return to theemergency department with any return of symptoms. Denies further needs prior to leaving. Medications Administered During the ED Stay from 02/17/2018 1413 to 02/17/2018 1851 Date/Time Order Dose Route Action 02/17/2018 1450 aspirin (RIAN CHEWABLE) chewable tablet 324 mg 324 mg Oral Given Discharge Medication List as of 02/17/2018 3:01 PM CONTINUE these medications which have NOT CHANGED Details ondansetron (ZOFRAN) 4 mg Tablet Take 1 Tablet (4 mg) by mouth every 8 hours as needed for Nausea.,Disp-15 Tablet, R-None HYDROcodone-acetaminophen (NORCO) 5-325 mg tablet Take 1 Tablet by mouth every 4 hours as needed for Pain. Max Daily Amount: 6 Tablets, Disp-20 Tablet, R-0 medroxyPROGESTERone (PROVERA) 10 mg tablet Take 10 mg by mouth daily. valACYclovir (VALTREX) 1 gram tablet Take 1,000 mg by mouth 2 times daily. tobramycin (TOBREX) 0.3 % solution 1 Drop every 4 hours. LAST VS BP: 132/85 (02/17/18 1420), Heart Rate: 94 bpm (02/17/18 1420), Resp: 16 (02/17/18 1420), Pulse: (not recorded), Temp: 98.2 ??F (36.8 ??C) (02/17/18 1420), Temp src: Oral (02/17/18 1420), SpO2: 100 %(02/17/18 1420) CLINICAL IMPRESSION Final diagnoses: [R07.9] Chest pain, unspecified type (Primary) [F14.90] Cocaine use [F41.9] Anxiety DISPOSITION, EDUCATION AND MEDICATION RECONCILIATION Medications reconciled. See after visit summary for patient education on discharged patients. ED Disposition ED Disposition Condition User Date/Time Comment Faraz Melo FNP Sun Feb 17, 2018 2:59 PM ATTESTATION STATEMENTS ONAL COMPUTER SPECIALIST documented in this encounter Plan of Treatment Not on file documented as of this encounter Procedures Procedure Name Priority Date/Time Associated Diagnosis Comments TROPONIN BASELINE, 5TH GEN Stat 02/17/2018 2:39 PM PERSONAL COMPUTER SPECIALIST CBC WITH DIFFERENTIAL Stat 02/17/2018 2:39 PM PERSONAL COMPUTER SPECIALIST COMPREHENSIVE METABOLIC PANEL Stat 02/17/2018 2:39 PM PERSONAL COMPUTER SPECIALIST EKG 12-LEAD Stat 02/17/2018 2:25 PM PERSONAL COMPUTER SPECIALIST documented in this encounter Results * TROPONIN BASELINE, 5TH GEN (02/17/2018 2:39 PM PERSONAL COMPUTER SPECIALIST) TROPONIN T, BASELINE 5TH GEN 8 <=10 ng/L 02/17/2018 3:18 PM [facility] Blood Venipuncture / Unknown 02/17/2018 2:39 PM PERSONAL COMPUTER SPECIALIST 02/17/2018 2:42 PM PERSONAL COMPUTER SPECIALIST Narrative [facility] - 02/17/2018 3:18 PM PERSONAL COMPUTER SPECIALIST Troponin Detectable but normal range. Faraz Negro DRY ROOM ATTENDANT CHEMISTRY ORDERAB LES [facility] CLIA# [id number] [place] [address] * (ABNORMAL) COMPREHENSIVE METABOLIC PANEL (02/17/2018 2:39 PM PERSONAL COMPUTER SPECIALIST) SODIUM 141 136 - 145 mmol/L 02/17/2018 3:18 PM [facility] POTASSIUM 3.5 3.4 - 5.1 mmol/L 02/17/2018 3:18 PM [facility] CHLORIDE 104 98 - 107 mmol/L 02/17/2018 3:18 PM [facility] CO2 21(L) 22 - 29 mmol/L 02/17/2018 3:18 PM [facility] CALCIUM 9.5 8.6 - 10.4 mg/dL 02/17/2018 3:18 PM [facility] BUN 8 6 - 20 mg/dL 02/17/2018 3:18 PM [facility] CREATININE 0.69 0.50 - 1.00 mg/dL 02/17/2018 3:18 PM [facility] GLUCOSE 90 74 - 99 mg/dL 02/17/2018 3:18 PM [facility] TOTAL PROTEIN 7.8 6.3 - 8.7 g/dL 02/17/2018 3:18 PM [facility] ALBUMIN 4.2 3.5 - 5.2 g/dL 02/17/2018 3:18 PM [facility] [employer] [facility] BILIRUBIN TOTAL 0.4 0.2 - 1.3 mg/dL 02/17/2018 3:18 PM [facility] [employer] [facility] ALKALINE PHOSPHATASE 54 40 - 150 U/L 02/17/2018 3:18 PM [facility] AST 20 0 - 33 U/L 02/17/2018 3:18 PM [facility] ALT 19 0 - 33 U/L 02/17/2018 3:18 PM [facility] GFR >60 >=60 mL/min/1.7 3 sq meter 02/17/2018 3:18 PM [facility] Comment: eGFR has not been validated for [...] GFR, >60 >=60 mL/min/1.7 3 sq meter 02/17/2018 3:18 PM [facility] ANION GAP 16 8 - 16 mmol/L 02/17/2018 3:18 PM [facility] Blood Venipuncture / Unknown 02/17/2018 2:39 PM PERSONAL COMPUTER SPECIALIST 02/17/2018 2:42 PM PERSONAL COMPUTER SPECIALIST Faraz Negro DRY ROOM ATTENDANT CHEMISTRY ORDERAB LES [facility] CLIA# [id number] [place] [address] * (ABNORMAL) CBC WITH DIFFERENTIAL (02/17/2018 2:39 PM PERSONAL COMPUTER SPECIALIST) WBC 8.8 4.5 - 10.5 K/uL 02/17/2018 2:52 PM PERSONAL COMPUTER SPECIALIST [facility] RBC 4.11 3.90 - 4.90 M/uL 02/17/2018 2:52 PM [facility] HEMOGLOBIN 9.3(L) 11.8 - 14.8 g/dL 02/17/2018 2:52 PM [facility] HEMATOCRIT 29.7(L) 35.5 - 44.0 % 02/17/2018 2:52 PM [facility] MCV 72.2(L) 82.0 - 99.0 fL 02/17/2018 2:52 PM [facility] MCH 22.5(L) 27.8 - 34.5 pg 02/17/2018 2:52 PM [facility] MCHC 31.2(L) 32.5 - 35.5 g/dL 02/17/2018 2:52 PM [facility] RDW 19.8(H) 11.5 - 14.5 % 02/17/2018 2:52 PM [facility] PLATELETS 375 160 - 420 K/uL 02/17/2018 2:52 PM [facility] MPV 7.4(L) 8.7 - 12.7 fL 02/17/2018 2:52 PM [facility] NEUTROPHILS 78(H) 45 - 70 % 02/17/2018 2:52 PM [facility] LYMPHOCYTES 14(L) 16 - 45 % 02/17/2018 2:52 PM [facility] MONOCYTES 7 3 - 13 % 02/17/2018 2:52 PM [facility] EOSINOPHILS 1 0 - 7 % 02/17/2018 2:52 PM [facility] BASOPHILS 0 0 - 2 % 02/17/2018 2:52 PM [facility] IMMATURE GRANULOCYTES 0 0 - 5 % 02/17/2018 2:52 PM [facility] NEUTROPHIL ABSOLUTE 6.80 1.90 - 7.00 K/uL 02/17/2018 2:52 PM [facility] LYMPHOCYTE ABSOLUTE 1.20 K/uL 02/17/2018 2:52 PM [facility] MONOCYTE ABSOLUTE 0.60 K/uL 018 2:52 PM [facility] EOSINOPHIL ABSOLUTE 0.10 0.00 - 0.70 K/uL 02/17/2018 2:52 PM PERSONAL COMPUTER SPECIALIST [facility] BASOPHILS ABSOLUTE 0.00 K/uL 02/17/2018 2:52 PM PERSONAL COMPUTER SPECIALIST [facility] IMMATURE GRANULOCYTES ABSOLUTE 0.00 K/uL 02/17/2018 2:52 PM PERSONAL COMPUTER SPECIALIST [facility] Blood Venipuncture / Unknown 02/17/2018 2:39 PM PERSONAL COMPUTER SPECIALIST 02/17/2018 2:42 PM PERSONAL COMPUTER SPECIALIST Faraz Negro DRY ROOM ATTENDANT HEMATOLOGY ORDERA BLES [facility] CLIA# [id number] [place] [address] * EKG 12-LEAD (02/17/2018 2:25 PM PERSONAL COMPUTER SPECIALIST) VENTRICULAR RATE 88 BPM INTERFACE SYSTEM ATRIAL RATE 88 BPM INTERFAC E SYSTEM P-R INTERVAL 142 ms INTERFA CE SYSTEM QRS DURATION 74 ms INTERFA CE SYSTEM Q-T INTERVAL 376 ms INTERFA CE SYSTEM QTC CALCULATION(BEZ ET) 454 ms INTERFACE SYSTEM P AXIS 28 degrees INTERFACE SYSTEM R AXIS 18 degrees INTERFACE SYSTEM T AXIS 10 degrees INTERFACE SYSTEM RESULT Normal sinus rhythm Normal ECG When compared with ECG of 10-JAN-2018 14:05, T wave inversion less evident in Anterior leads Confirmed by EMMA BARRON MD ([id number]) on 02/17/2018 3:22:38 PM INTERFACE SYSTEM 02/17/2018 2:25 PM PERSONAL COMPUTER SPECIALIST 02/17/2018 3:22 PM PERSONAL COMPUTER SPECIALIST Protocol [facility] Emergency MD ECG ORDERABLE S INTERFACE SYSTEM Refer to clinic/hospital department documented in this encounter Visit Diagnoses Diagnosis Chest pain, unspecified type- Primary Cocaine use Cocaine abuse, unspecified Anxiety Anxiety state, unspecified documented in this encounter Administered Medications Inactive Administered Medications - up to 3 most recent administrations Medication Order MAR Action Action Date Dose Rate Site aspirin (RIAN CHEWABLE) chewable tablet 324 mg 324 mg, Oral, ONE TIME ONLY, 1 dose, On 02/17/18 at 1445, Routine Given 02/17/2018 2:50 PM PERSONAL COMPUTER SPECIALIST 324 mg documented in this encounter Active and Recently Administered Medications Times are shown in PERSONAL COMPUTER SPECIALIST. Scheduled Medication Order 02/15/2018 02/16/2018 02/17/2018 aspirin (RIAN CHEWABLE) chewable tablet 324 mg (COMPLETED) 324 mg, Oral, ONE TIME ONLY, 1 dose, On 02/17/18 at 1445, Routine 1450 (Given - Provid er: Marely Freedman RN) documented in this encounter Care Teams Clinical Nursing Instructor Relationship Specialty Start Date End Date Huseyin Dangelo MD PCP - General 09/29/17 07/14/19 documented as of this encounter
--- OUTSIDE RECORDS SUMMARY | 2024-02-24 20:39 | XMS_ITS | Encounter Summary ---
Author Organization [facility] Address [address] [place] [address] Care Team Providers Care Workers Compensation Specialist Name Role Phone Huseyin Dangelo MD Primary Care Provider [phone] Reason for Visit * Reason Comments Generalized Body Aches * Auth/Cert Specialty Diagnoses / Procedures Referred By Jud freeman Referred To Contact Emergency Medicine [facility] Emergency Department [address] [place] [address] Referral ID Status Reason Start Date Expiration Date Visits Re quested Visits Authorized [id number] 1 1 Encounter Details Date Type Department Care Team (Late st Contact Info) Description 08/26/2018 2:20 AM CDT - 08/26/2018 4:41 AM CDT Emergency [facility] Emergency Department [address] [place] [address] Mason Draper MD [facility] [place], [place] [id number] Arthralgia, unspecified joint (Primary Dx) Discharge Disposition: [...] Sign Reading Time Taken Comments Blood Pressure 125/83 08/26/2018 3:55 AM CDT Pulse 93 08/26/2018 3:55 AM CDT Temperature 36.7 ??C (98 ??F) 08/26/2018 2:29 AM CDT Respiratory Rate 18 08/26/2018 3:55 AM CDT Oxygen Saturation 100% 08/26/2018 3:55 AM CDT Inhaled Oxygen Concentration - - Weight - - Height - - Body Mass Index - - documented in this encounter Discharge Instructions * Attachments The following attachments cannot be sent through Care Everywhere. * Joint Pain (Khmer) documented in this encounter Medications at Time of Discharge Medication Sig Dispensed Refills Start Date End Date hydroxychloroquine (PLAQUENIL) 200 mg tablet Take 200 mg by mouth daily. valACYclovir (VALTREX) 1 gram tablet Take 1,000 mg by mouth 2 times daily. 04/27/2020 documented as of this encounter ED Notes * Sal Castillo RN - 08/26/2018 4:40 AM CDT Patient verbalizes understanding of discharge instructions. No other needs noted. Patient ambulatory to exit. * Sal Castillo RN - 08/26/2018 4:23 AM CDT Patient ambulatory to restroom with steady gait. Requesting update on plan of care. aware. * Maryam Gaitan RN - 08/26/2018 2:[address] Draper bedside. * Maryam Gaitan RN - 08/26/2018 2:36 AM CDT Patient ambulatory to bathroom with a steady gait, UA collected. * Maryam Gaitan RN - 08/26/2018 2:27 AM CDT The pt arrives to the ER as an AOx4 female from home with a chief complaint of generalized body aches. Per the pt, I feel sick . Reports being seen in ED for same symptoms with no significant findings. Patient also endorses swelling to bilateral hands. Patient states hx of lupus and fibromyalgia, but states current symptoms are different. Past Surgical History: Procedure Laterality Date ??? HX APPENDECTOMY Past Medical History: Diagnosis Date ??? Anxiety ??? Connective tissue disease ??? Depression ??? Fibromyalgia ??? HTN (hypertension) ??? Lupus Allergies Allergen Reactions ??? Methylprednisolone Syncope * Moose Blackmon, EMT-P - 08/26/2018 2:19 AM CDT TB Screen instructions: Complete the [...] initiate Airborne Isolation and contact provider. * Mason Draper MD - 08/26/2018 2:18 AM CDT HISTORY OF PRESENT ILLNESS Carito Rausch, a 28 y.o. female presents to the ED with a Chief Complaint of Generalized Body Aches Subjective 28 y.o. F with PMHx of lupus, connective tissue disease, fibromyalgia and HTN presents to ED c/o generalized body aches onset 3 days ago. Pt states she takes 10 mg of prednisone and Tramadol prescribed by Dr. Dangelo. Pt reports Rx has not been alleviating pain. Pt has an appointment with neurologiston September 12. No exacerbating/alleviating factors. No further complaints. Generalized Body Aches Presenting symptoms: fatigue, headache and myalgias Presenting symptoms: no shortness of breath and no vomiting REVIEW OF SYSTEMS Review of Systems Constitutional: Positive for activity change, appetite change and fatigue. Generalized body ache HENT: Negative for nosebleeds. Eyes: Negative for pain and itching. Respiratory: Negative for shortness of breath and wheezing. Cardiovascular: Positive for chest pain and leg swelling. Negative for palpitations. Gastrointestinal: Positive for abdominal pain. Negative for vomiting. Genitourinary: Negative for dysuria and hematuria. Musculoskeletal: Positive for arthralgias and myalgias. Negative for back pain and neck pain. Neurological: Positive for headaches. Negative for seizures. Psychiatric/Behavioral: Negative for agitation and confusion. All other systems reviewed and [...] SOCIAL: reports that she quit smoking about 8 months ago. Her smoking use included cigarettes. [...] Home Medications ALPRAZOLAM (XANAX) 0.25 MG TABLET CYCLOBENZAPRINE (FLEXERIL) 10 MG TABLET HYDROCODONE-ACETAMINOPHEN (NORCO) 5-325 MG TABLET HYDROXYCHLOROQUINE (PLAQUENIL) 200 MG TABLET ONDANSETRON (ZOFRAN) 4 MG TABLET TRAMADOL (ULTRAM) 50 MG TABLET VALACYCLOVIR (VALTREX) 1 GRAM TABLET Medications Modified during this Encounter Medications Discontinued during this Encounter Objective PHYSICAL EXAM INITIAL VS BP: (!) 151/98 (08/26/18226), Heart Rate: 89 bpm (08/26/18226), Resp: 16 (08/26/18226), Pulse: 95 (08/26/18 0254), Temp: 98 ??F (36.7 ??C) (08/26/18228), Temp src: Oral (08/26/18228), SpO2:100 % (08/26/18226), Height: (not recorded), Weight: (not recorded), BMI (Calculated): (not recorded) No LMP recorded. Physical Exam Constitutional: She is oriented to person, place, and time. She appears well- developed and well-nourished. She appears distressed (mild). HENT: Head: Normocephalic and atraumatic. Eyes: Pupils are equal, round, and reactive to light. Conjunctivae and EOM are normal. Neck: Normal range of motion. Neck supple. No tracheal deviation present. Cardiovascular: Normal rate, regular rhythm and normal heart sounds. Exam reveals no friction rub. No murmur heard. Pulmonary/Chest: Effort normal and breath sounds normal. No respiratory distress. She has no wheezes. Abdominal: Soft. Bowel sounds are normal. She exhibits no distension and no mass. There is no tenderness. There is no rebound and no guarding. Genitourinary: Vagina normal and uterus normal. Musculoskeletal: Normal range of motion. She exhibits tenderness (to palpation on upper back. No obvious deformities.). Neurological: She is alert and oriented to person, place, and time. No cranial nerve deficit. Skin: Skin is warm and dry. No rash noted. Psychiatric: She has a normal mood and affect. Her behavior is normal. Nursing note and vitals reviewed. DIAGNOSTICS LAB: CBC WITH DIFFERENTIAL - Abnormal Result Value WBC 5.8 RBC 4.25 HEMOGLOBIN 10.7 (*) HEMATOCRIT 33.3 (*) MCV 78.4 (*) MCH 25.2 (*) MCHC 32.2 (*) RDW 19.5 (*) PLATELETS 330 MPV 7.7 (*) NEUTROPHILS 69 LYMPHOCYTES 23 MONOCYTES 6 EOSINOPHILS 1 BASOPHILS 1 IMMATURE GRANULOCYTES 0 NEUTROPHIL ABSOLUTE 4.00 LYMPHOCYTE ABSOLUTE 1.30 MONOCYTE ABSOLUTE 0.30 EOSINOPHIL ABSOLUTE 0.00 BASOPHILS ABSOLUTE 0.00 IMMATURE GRANULOCYTES ABSOLUTE 0.00 COMPREHENSIVE METABOLIC PANEL - Abnormal SODIUM 140 POTASSIUM 3.6 CHLORIDE 102 CO2 24 CALCIUM 9.4 BUN 16 CREATININE 0.67 GLUCOSE 96 TOTAL PROTEIN 7.0 ALBUMIN 4.1 BILIRUBIN TOTAL <0.2 (*) ALKALINE PHOSPHATASE 41 AST 12 ALT 11 GFR >60 GFR, >60 ANION GAP 14 C-REACTIVE PROTEIN - Abnormal CRP 5.8 (*) URINALYSIS WITH REFLEX MICROSCOPIC - Abnormal COLOR UA Pale Yellow CLARITY UA Clear SPECIFIC GRAVITY UA 1.023 PH UA 6.0 LEUKOCYTE ESTERASE UA Negative NITRITE UA Negative PROTEIN UA Negative GLUCOSE UA Negative KETONES UA Negative UROBILINOGEN UA Normal BILIRUBIN UA Negative BLOOD UA 1+ (*) WBC UA 0-2 RBC UA 3-5 (*) BACTERIA UA Negative EPITHELIAL CELLS, URINE 0-5 HYALINE CAST None Seen Ascorbic Acid UA Negative SEDIMENTATION RATE - Normal ESR (SEDIMENTATION RATE) 8 RADIOLOGY: XR CHEST PA OR AP 1 VW ED Interpretation NAD EKG: NSR at 80 bpm, No ST elevation, normal axis PROCEDURES Procedures MEDICAL DECISION MAKING AND PLAN OF CARE ED Course as of Aug 26 438 Mon Aug 26, 2018 0243 - Pt reports she has taken Tramadol and Prednisone [employer] [EB] ED Course User Index [EB] Iris Gutierres Scribe [facility] Summary Statement: I had a detailed discussion with the patient and/or guardian regarding: the historical points, examfindings, and any diagnostic results supporting the discharge diagnosis. I have exam findings, and any diagnostic results supporting the discharge diagnosis. I have reviewed and agree with what was documented by the nurses. Diagnostic tests: All vital signs, diagnostic tests, to include but not limited to, labs, EKG and imaging that were completed were reviewed and discussed with the patient and/or guardian. Patient's labs are unremarkable. Patient feels like symptoms are exacerbated by steroids. She wantsto stop her steroids. She was instructed to follow up with her carpentry instructor to discuss this. Medications Administered During the ED Stay from 08/26/2018 0218 to 08/26/2018 0439 Date/Time Order Dose Route Action 08/26/2018 0423 sodium chloride 0.9% bolus solution 500 mL 0 mL IV Stopped 08/26/2018 0252 sodium chloride 0.9% bolus solution 500 mL 500 mL IV New Bag 08/26/2018 025 ketorolac (TORADOL) injection 30 mg 30 mg IV Given . New Prescriptions for this Encounter LAST VS BP: 125/83 (08/26/18354), Heart Rate: 89 bpm (08/26/18354), Resp: 18 (08/26/18354), Pulse: 93(08/26/18354), Temp: 98 ??F (36.7 ??C) (08/26/18228), Temp src: Oral (08/26/18228), SpO2: 100% (08/26/18354) CLINICAL IMPRESSION Final diagnoses: [M25.50] Arthralgia, unspecified joint (Primary) DISPOSITION, EDUCATION AND MEDICATION RECONCILIATION Medications reconciled. See after visit summary for patient education on discharged patients. ED Disposition ED Disposition Condition User Date/Time Comment Discharge Stable Mason Draper MD Mon Aug 26, 2018 4:32 AM ATTESTATION STATEMENTS This note is prepared by Iris Gutierres acting as a scribe for Mason Diaz documented in this encounter Plan of Treatment Not on file documented as of this encounter Procedures Procedure Name Priority Date/Time Associated Diagnosis Comments XR CHEST PA OR AP 1 VW Stat 9 3:06 AM CDT EKG 12-LEAD Stat 08/26/2018 3:06 AM CDT URINALYSIS W/REFLEX MICROSCOPIC Stat 08/26/2018 2:52 AM CDT CBC WITH DIFFERENTIAL Stat 08/26/2018 2:51 AM CDT SEDIMENTATION RATE Stat 08/26/2018 2: 51 AM CDT C-REACTIVE PROTEIN Stat 08/26/2018 2: 51 AM CDT COMPREHENSIVE METABOLIC PANEL Stat 08/26/2018 2:51 AM CDT documented in this encounter Results * XR CHEST PA OR AP 1 VW (08/26/2018 3:06 AM CDT) Anatomical Region Laterality Modality Chest Computed Radiogr aphy 08/26/2018 3:06 AM CDT Impressions 08/26/2018 9:00 AM CDT IMPRESSION: Clear lungs. DICTATION LOCATION: [address] Narrative 08/26/2018 9:00 AM CDT STUDY: XR CHEST PA OR AP 1 VW DATE: ??08/26/2018 3:06 AM HISTORY: Chest pain. COMPARISON: 09/06/2016. FINDINGS: ?? Cardiac silhouette is not enlarged. The lungs are clear without pleural effusion or pneumothorax. No infiltrate. Procedure Note Tom Finney MD - 08/26/2018 STUDY: XR CHEST PA OR AP 1 VW DATE: 08/26/2018 3:06 AM HISTORY: Chest pain. COMPARISON: 09/06/2016. FINDINGS: Cardiac silhouette is not enlarged. The lungs are clear without pleural effusion or pneumothorax. No infiltrate. IMPRESSION: Clear lungs. DICTATION LOCATION: Location [address] [place] [address] Mason Draper MD DIAGNOSTIC IMAGING O RDERABLES * EKG 12-LEAD (08/26/2018 3:06 AM CDT) VENTRICULAR RATE 80 BPM INTERFACE SYSTEM ATRIAL RATE 80 BPM INTERFAC E SYSTEM P-R INTERVAL 138 ms INTERFA CE SYSTEM QRS DURATION 84 ms INTERFA CE SYSTEM Q-T INTERVAL 370 ms INTERFA CE SYSTEM QTC CALCULATION(BEZ ET) 426 ms INTERFACE SYSTEM P AXIS 33 degrees INTERFACE SYSTEM R AXIS 16 degrees INTERFACE SYSTEM T AXIS 13 degrees INTERFACE SYSTEM RESULT Normal sinus rhythm with sinus arrhythmia Normal ECG When compared with ECG of 19-AUG-2018 08:29, No significant change was found Confirmed by EMMA BARRON MD ([id number]) on 08/26/2018 6:26:48 PM INTERFACE SYSTEM 08/26/2018 3:06 AM CDT 08/26/2018 6:26 PM CDT Mason Draper MD ECG ORDERABLES INTERFACE SYSTEM Refer to clinic/hospital department * (ABNORMAL) URINALYSIS WITH REFLEX MICROSCOPIC (08/26/2018 2:52 AM CDT) COLOR UA Pale Yellow Pale to Dark Yellow 08/26/2018 3:02 AM CDT [facility] CLARITY UA Clear Clear 08/26/2018 3:02 AM CDT [facility] [employer] [facility] SPECIFIC GRAVITY UA 1.023 1.003 - 1.035 08/26/2018 3:02 AM CDT [facility] [employer] [facility] PH UA 6.0 5.0 - 8.0 08/26/2018 3:02 AM CDT [facility] [employer] [facility] LEUKOCYTE ESTERASE UA Negative Negative 08/26/2018 3:02 AM CDT [facility] [employer] [facility] NITRITE UA Negative Negative 08/26/2018 3:02 AM CDT [facility] [employer] [facility] PROTEIN UA Negative Negative 08/26/2018 3:02 AM CDT [facility] [employer] [facility] GLUCOSE UA Negative Negative 08/26/2018 3:02 AM CDT [facility] KETONES UA Negative Negative 08/26/2018 3:02 AM CDT [facility] [employer] [facility] UROBILINOGEN UA Normal <2.0 mg/dL 9 3:02 AM CDT [facility] BILIRUBIN UA Negative Negative 08/26/2018 3:02 AM CDT [facility] [employer] [facility] BLOOD UA 1+(A) Negative 08/26/2018 3:02 AM CDT [facility] WBC UA 0-2 0 - 2 /hpf 08/26/2018 3:02 AM CDT [facility] RBC UA 3-5(A) 0 - 2 /hpf 08/26/2018 3:02 AM CDT [facility] BACTERIA UA Negative Negative /hpf 08/26/2018 3:02 AM CDT [facility] EPITHELIAL CELLS, URINE 0-5 0 - 5 /hpf 08/26/2018 3:02 AM CDT [facility] HYALINE CAST None Seen None Seen, 0-2 /lpf 08/26/2018 3:02 AM CDT [facility] Ascorbic Acid UA Negative Negative 08/27/19 19 3:02 AM CDT [facility] Urine URINE SPECIMEN OBTAINED BY CLEAN CATCH PROCEDURE / Unknown Collection / Unknown 08/26/2018 2:52 AM CDT 08/26/2018 2:54 AM CDT Mason Draper MD URINE ORDERABLES Performing Organization Address City/[facility]/ZIP Co de Phone Number [facility] CLIA# [id number] [place] [address] * SEDIMENTATION RATE (08/26/2018 2:51 AM CDT) Pathologist [facility] ESR (SEDIMENTATION RATE) 8 0 - 20 mm/Hr 08/26/2018 3:05 AM CDT [facility] Blood Venipuncture / Unknown 08/26/2018 2:51 AM CDT 08/26/2018 2:54 AM CDT Mason Draper MD HEMATOLOGY ORDERABLE S [facility] CLIA# [id number] [place] [address] * (ABNORMAL) C-REACTIVE PROTEIN (08/26/2018 2:51 AM CDT) CRP 5.8(H) <5.0 mg/L 08/26/2018 3:28 AM CDT [facility] [employer] [facility] Blood Venipuncture / Unknown 08/26/2018 2:51 AM CDT 08/26/2018 2:57 AM CDT Mason Draper MD CHEMISTRY ORDERABLES [facility] CLIA# [id number] [place] [address] * (ABNORMAL) COMPREHENSIVE METABOLIC PANEL (08/26/2018 2:51 AM CDT) SODIUM 140 136 - 145 mmol/L 08/26/2018 3:28 AM CDT [facility] POTASSIUM 3.6 3.4 - 5.1 mmol/L 08/26/2018 3:28 AM CDT [facility] CHLORIDE 102 98 - 107 mmol/L 08/26/2018 3:28 AM CDT [facility] CO2 24 22 - 29 mmol/L 08/26/2018 3:28 AM CDT [facility] CALCIUM 9.4 8.6 - 10.4 mg/dL 08/26/2018 3:28 AM CDT [facility] BUN 16 6 - 20 mg/dL 08/26/2018 3:28 AM T [facility] CREATININE 0.67 0.50 - 1.00 mg/dL 08/26/2018 3:28 AM CDT [facility] GLUCOSE 96 74 - 99 mg/dL 08/26/2018 3:28 AM T [facility] TOTAL PROTEIN 7.0 6.3 - 8.7 g/dL 08/26/2018 3:28 AM CDT [facility] ALBUMIN 4.1 3.5 - 5.2 g/dL 08/26/2018 3:28 AM CDT [facility] BILIRUBIN TOTAL <0.2(L) 0.2 - 1.3 mg/dL 08/26/2018 3:28 AM CDT [facility] ALKALINE PHOSPHATASE 41 40 - 150 U/L 08/26/2018 3:28 AM CDT [facility] AST 12 0 - 33 U/L 08/26/2018 3:28 AM CDT [facility] ALT 11 0 - 33 U/L 08/26/2018 3:28 AM CDT [facility] GFR >60 >=60 mL/min/1.7 3 sq meter 08/26/2018 3:28 AM CDT [facility] Comment: eGFR has not been validated [...] GFR, >60 >=60 mL/min/1.7 3 sq meter 08/26/2018 3:28 AM CDT [facility] ANION GAP 14 8 - 16 mmol/L 08/26/2018 3:28 AM T [facility] Blood Venipuncture / Unknown 08/26/2018 2:51 AM CDT 08/26/2018 2:57 AM CDT Mason Draper MD CHEMISTRY ORDERABLES [facility] CLIA# [id number] [place] [address] * (ABNORMAL) CBC WITH DIFFERENTIAL (08/26/2018 2:51 AM CDT) WBC 5.8 4.5 - 10.5 K/uL 08/26/2018 2:59 AM CDT [facility] RBC 4.25 3.90 - 4.90 M/uL 08/26/2018 2:59 AM CDT [facility] HEMOGLOBIN 10.7(L) 11.8 - 14.8 g/dL 08/26/2018 2:59 AM CDT [facility] HEMATOCRIT 33.3(L) 35.5 - 44.0 % 08/26/2018 2:59 AM CDT [facility] MCV 78.4(L) 82.0 - 99.0 fL 08/26/2018 2:59 AM CDT [facility] MCH 25.2(L) 27.8 - 34.5 pg 08/26/2018 2:59 AM CDT [facility] MCHC 32.2(L) 32.5 - 35.5 g/dL 08/26/2018 2:59 AM CDT [facility] RDW 19.5(H) 11.5 - 14.5 % 08/26/2018 2:59 AM CDT [facility] PLATELETS 330 160 - 420 K/uL 08/26/2018 2:59 AM CDT [facility] MPV 7.7(L) 8.7 - 12.7 fL 08/26/2018 2:59 AM CDT [facility] NEUTROPHILS 69 45 - 70 % 08/26/2018 2:59 AM CDT [facility] LYMPHOCYTES 23 16 - 45 % 08/26/2018 2:59 AM CDT [facility] MONOCYTES 6 3 - 13 % 08/26/2018 2:59 AM CDT [facility] EOSINOPHILS 1 0 - 7 % 08/26/2018 2:59 AM CDT [facility] BASOPHILS 1 0 - 2 % 08/26/2018 2:59 AM CDT [facility] IMMATURE GRANULOCYTES 0 0 - 5 % 08/26/2018 2:59 AM CDT [facility] NEUTROPHIL ABSOLUTE 4.00 1.90 - 7.00 K/uL 08/26/2018 2:59 AM CDT [facility] LYMPHOCYTE ABSOLUTE 1.30 K/uL 08/26/2018 2:59 AM CDT [facility] MONOCYTE ABSOLUTE 0.30 K/uL 019 2:59 AM CDT [facility] EOSINOPHIL ABSOLUTE 0.00 0.00 - 0.70 K/uL 08/26/2018 2:59 AM CDT [facility] BASOPHILS ABSOLUTE 0.00 K/uL 08/26/2018 2:59 AM CDT [facility] IMMATURE GRANULOCYTES ABSOLUTE 0.00 K/uL 08/26/2018 2:59 AM CDT [facility] Blood Venipuncture / Unknown 08/26/2018 2:51 AM CDT 08/26/2018 2:54 AM CDT Mason Draper MD HEMATOLOGY ORDERABLE S [facility] CLIA# [id number] [address] [place] [address] documented in this encounter Visit Diagnoses Diagnosis Arthralgia, unspecified joint- Primary documented in this encounter Administered Medications Inactive Administered Medications - up to 3 most recent administrations Medication Order MAR Action Action Date Dose Rate Site ketorolac (TORADOL) injection 30 mg 30 mg, IV, ONE TIME ONLY, 1 dose, On Sun08/26/18 at 0245, Routine Given 08/26/2018 2:52 AM CDT 30 mg sodium chloride 0.9% bolus solution 500 mL 500 mL, IV, ONE TIME ONLY, 1 dose, On Sun08/26/18 at 0245, at 500 mL/hr, Administer over 60 Minutes, Routine New Bag 08/26/2018 2:52 AM CDT 500 mL 500 mL/hr documented in this encounter Active and Recently Administered Medications Times are shown in CDT. Scheduled Medication Order 08/24/2018 08/25/2018 08/26/2018 ketorolac (TORADOL) injection 30 mg (COMPLETED) 30 mg, IV, ONE TIME ONLY, 1 dose, On Sun08/26/18 at 0245, Routine 0252 (Given - Provid er: Heather Upton RN) sodium chloride 0.9% bolus solution 500 mL (COMPLETED) 500 mL, IV, ONE TIME ONLY, 1 dose, On Sun08/26/18 at 0245, at 500 mL/hr, Administer over 60 Minutes, Routine 0252 (New Bag - Prov ider: Heather Upton, PRO)[id number] (Stopped - Provider: Sal Castillo RN) documented in this encounter Care Teams Workers Compensation Specialist Relationship Specialty Start Date End Date Huseyin Dangelo MD PCP - General 09/29/17 07/14/19 documented as of this encounter
--- OUTSIDE RECORDS SUMMARY | 2024-02-24 20:39 | XMS_ITS | Encounter Summary ---
Author Organization [facility] Address [address] [place] [address] Care Team Providers Care Motor Pool Driver Name Role Phone Brian Mon MD Primary Care Provider Encounter Details Date Type Department Care Team (Late st Contact Info) Description 07/13/2004 Outpatient Historical [facility] Child and Adolescent Psychiatry S [facility]ly [facility] [address] [place] [address] [place] [address] [facility] [place] [address] Social History Tobacco Use Types [...] documented as of this encounter Care Teams Motor Pool Driver Relationship Specialty Start Date End Date Brian Mon MD [address] [place] [address] PCP - General Internal Medicine 07/15/19 documented as of this encounter
--- OUTSIDE RECORDS SUMMARY | 2024-02-24 20:39 | XMS_ITS | Encounter Summary ---
Author Organization [facility] Address [address] [place] [address] Care Team Providers Care Community Chest Officer Name Role Phone Huseyin Dangelo MD Primary Care Provider [phone] Reason for Visit * Reason Comments general weakness Patient placed on Ce llcept for lupus, patient states she has had generalized body aches since starting medication. Pt states that her entire body is in pain. Pt states these symptoms have been going on for about two weeks. Pt ambulatory upon arrival. * Auth/Cert Specialty Diagnoses / Procedures Referred By Jud freeman Referred To Contact Emergency Medicine [facility] Emergency Department [address] [place] [address] Referral ID Status Reason Start Date Expiration Date Visits Re quested Visits Authorized [id number] 1 1 Encounter Details Date Type Department Care Team (Late st Contact Info) Description 09/10/2018 10:31 AM CDT - 09/10/2018 12:43 PM CDT Emergency [facility] Emergency Department [address] [place] [address] Ernie Harrell DO NO ADDRESS ON FILE Chronic pain syndrome (Primary Dx); Adverse effect of drug, initial encounter Discharge Disposition: Home or Self Care Social [...] Sign Reading Time Taken Comments Blood Pressure 128/83 09/10/2018 12:42 PM CDT Pulse 99 09/10/2018 12:42 PM CDT Temperature 36.7 ??C (98 ??F) 09/10/2018 10:19 AM CDT Respiratory Rate 16 09/10/2018 12:42 PM CDT Oxygen Saturation 100% 09/10/2018 12:42 PM CDT Inhaled Oxygen Concentration - - Weight 63.5 kg (140 lb) 09/10/2018 10:19 AM CDT Height 157.5 cm (5' 2 ) 09/10/2018 10:19 AM CDT Body Mass Index 25.61 09/10/2018 10:19 AM CDT documented in this encounter Discharge Instructions * Discharge Instructions* Ernie Harrell DO - 09/10/2018 12:14 PM CDT Please return to the emergency room for any medical concerns. You may consider discontinuing CellCept as there may be an adverse drug reaction. Please follow- up with your primary care physician or shredder picker in 3 to 5 days for reevaluation and further management. documented in this encounter Medications at Time of Discharge Medication Sig Dispensed Refills Start Date End Date hydroxychloroquine (PLAQUENIL) 200 mg tablet Take 200 mg by mouth daily. valACYclovir (VALTREX) 1 gram tablet Take 1,000 mg by mouth 2 times daily. 04/27/2020 documented as of this encounter ED Notes * Zoe Matute - 09/10/2018 12:04 PM CDT Pt states she is so shocked she hasn't received any pain medication yet. * Antionette Saleh RN - 09/10/2018 10:27 AM CDT Pt reports generalized body pain/aches. Pt reports difficulty performing daily task d/t pain. Symptoms have been getting worse over the past two weeks after being started on CellCept. Pt able to ambulate to triage room; A&Ox4 upon arrival. * Antionette Saleh RN - 09/10/2018 10:23 AM CDT TB Screen instructions: Complete the [...] initiate Airborne Isolation and contact provider. * Monet Lazo RN - 09/10/2018 10:18 AM CDT TB Screen instructions: Complete the [...] initiate Airborne Isolation and contact provider. * Ernie Harrell DO - 09/10/2018 10:17 AM CDT HISTORY OF PRESENT ILLNESS Carito Rausch, a 28 y.o. female presents to the ED with a Chief Complaint of general weakness Subjective (1044) Carito Rausch is a 28 y.o. female who presents to the ED with generalized body aches thatbegan months ago but worsened in the last week. Patient states that she has been feeling unwell forthe past couple of months secondary to lupus. She notes that she was started on Cellcept a week agoby Dr. Dangelo, PCP. Patient reports that she was also given 2 injections of steroids. She states that since she was started on the Cellcept, her symptoms have been progressively getting worse. Patientadmits to generalized body aches - mostly concentrated in the back and chest. She reports that she is unable to properly ambulate or move around due to these symptoms. Patient also endorses associated shortness of breath. HPI REVIEW OF SYSTEMS Review of Systems Constitutional: Negative for chills, diaphoresis and fever. Generalized body aches HENT: Negative for trouble swallowing. Eyes: Negative for visual disturbance. Respiratory: Positive for shortness of breath. Negative for cough and chest tightness. Cardiovascular: Positive for chest pain. Negative for palpitations. Gastrointestinal: Negative for abdominal pain. Genitourinary: Negative for difficulty urinating, frequency and urgency. Musculoskeletal: Positive for back pain. Skin: Negative for color change. Allergic/Immunologic: Negative for immunocompromised state. Neurological: Negative for headaches. Hematological: Does not bruise/bleed easily. Psychiatric/Behavioral: Negative for behavioral problems. PAST MEDICAL HISTORY REVIEWED MEDICAL: Patient has [...] MG TABLET PREDNISONE (DELTASONE) 10 MG TABLET TRAMADOL (ULTRAM) 50 MG TABLET VALACYCLOVIR (VALTREX) 1 GRAM TABLET Medications Modified during this Encounter Medications Discontinued during this Encounter Objective PHYSICAL EXAM INITIAL VS BP: (!) 138/94 (09/10/18 1019), Heart Rate: 96 bpm (09/10/18 1019), Resp: 17 (09/10/18 101), Pulse: 96 (09/10/18 101), Temp: 98 ??F (36.7 ??C) (09/10/18 101), Temp src: Oral (09/10/18 1019), SpO2:100 % (09/10/18 101), Height: 5' 2 (157.5 cm) (09/10/18 1019), Weight: 63.5 kg (140 lb) (), BMI (Calculated): 25.6 (09/10/18 1019) Patient's last menstrual period was 08/27/2018. Physical Exam Constitutional: She is oriented to person, place, and time. She appears well- developed and well-nourished. No distress. HENT: Head: Normocephalic and atraumatic. Right Ear: External ear normal. Left Ear: External ear normal. Nose: Nose normal. Mouth/Throat: Oropharynx is clear and moist. Eyes: Conjunctivae and EOM are normal. Neck: Normal range of motion. No JVD present. No tracheal deviation present. Cardiovascular: Normal rate, regular rhythm, normal heart sounds and intact distal pulses. No murmur heard. Pulmonary/Chest: Effort normal and breath sounds normal. No respiratory distress. She has no wheezes. Abdominal: Soft. She exhibits no distension. There is no tenderness. There is no rebound and no guarding. Musculoskeletal: She exhibits no edema or deformity. No crepitus Neurological: She is alert and oriented to person, place, and time. Gait normal. Skin: Capillary refill takes less than 2 seconds. She is not diaphoretic. No erythema. No overlying skin lesions. Psychiatric: She has a normal mood and affect. Her behavior is normal. Judgment and thought contentnormal. Nursing note and vitals reviewed. Pulse Ox Interpretation: Saturation: (%) 100 Oxygen Delivery: Room air Interpretation: No hypoxia at this time. Rhythm strip interpretation: Normal sinus rhythm, no arrhythmia noted. Ventricular rate (bpm): 96 DIAGNOSTICS LAB: No data to display RADIOLOGY: No orders to display EKG: Time 1040 Normal sinus rhythm/rate: [address] segments and intervals PROCEDURES Procedures MEDICAL DECISION MAKING AND PLAN OF CARE MDM Summary Statement: Patient presents with a constellation of symptoms. Vital signs mildly tachycardic but normalized with fluid bolus and otherwise grossly within normal limits. Physical exam as above in a nontoxic-appearing individual who is ambulatory without assistance with no gait disturbance. Laboratory results are grossly within normal limits. I reviewed prior imaging from a week ago and patient was seen. Patient may have adverse drug reaction to CellCept or may be her chronic condition of connective tissue disorder with fibromyalgia. There is no clear criteria to admit patient and so patient is dischargedhome to follow-up with her shredder picker on an outpatient basis. . New Prescriptions for this Encounter LAST VS BP: (!) 138/94 (09/10/18 1019), Heart Rate: 96 bpm (09/10/18 1019), Resp: 17 (09/10/18 1019), Pulse: 96 (09/10/18 101), Temp: 98 ??F (36.7 ??C) (09/10/18 101), Temp src: Oral (09/10/18 101), SpO2:100 % (09/10/181018) CLINICAL IMPRESSION Final diagnoses: None DISPOSITION, EDUCATION AND MEDICATION RECONCILIATION Medications reconciled. See after visit summary for patient education on discharged patients. ATTESTATION STATEMENTS Erica Perez am serving as a scribe to document services personally performed by Ernie Obrien DO, based upon my observations and the provider's statements to me. All documentation has been reviewed by the aforementioned doctor prior to being entered into the official medical record. Electronically signed by: Karlie Rivera Provider Attestation: Sharri Perez Joseph, DO, have reviewed the documentation as recorded by the scribe and it accurately reflects the work and decisions made by me. 09/10/2018 documented in this encounter Plan of Treatment Not on file documented as of this encounter Procedures Procedure Name Priority Date/Time Associated Diagnosis Comments XR CHEST PA AND LATERAL 2 VW Stat 09/10/2018 11:06 AM CDT EXTRA TUBE Stat 09/10/2018 10:54 AM CDT EXTRA TUBE (URINE CONNER) Stat 09/10/2018 10:54 AM CDT EKG 12-LEAD Stat 09/10/2018 10:40 AM CDT TSH REFLEXIVE Stat 09/10/2018 10:40 AM CDT PROCALCITONIN Stat 09/10/2018 10:40 AM CDT URINALYSIS WITH REFLEX CULTURE Stat 09/10/2018 10:40 AM CDT CBC WITH DIFFERENTIAL Stat 09/10/2018 10:40 AM CDT HCG QUALITATIVE, URINE Stat 9 10:40 AM CDT COMPREHENSIVE METABOLIC PANEL Stat 09/10/2018 10:40 AM CDT documented in this encounter Results * XR CHEST PA AND LATERAL 2 VW (09/10/2018 11:06 AM CDT) Anatomical Region Laterality Modality Chest Computed Radiogr aphy 09/10/2018 11:0 7 AM CDT Addenda Addendum by Antonio Davis MD on 09/24/2018 6:10 PM CDT HISTORY: Trauma. Impressions 09/10/2018 1:24 PM CDT IMPRESSION: ?? Chest within normal limits. DICTATION LOCATION: [address] Narrative 09/10/2018 1:24 PM CDT CHEST PA AND LATERAL VIEWS DATE: ??09/10/2018 11:06 AM HISTORY: Other - Please see comments ??See Reason for Exam COMPARISON: August 26, 2018 FINDINGS: Examination of the chest in PA and lateral projections does not reveal infiltrative or consolidative process in either lung field. ??There is no evidence of congestion or effusion. ??The cardiac and mediastinal structures appear normal. ??The visualized bony thorax is within normal limits. ?? Procedure Note Antonio Davis MD - 09/10/2018 CHEST PA AND LATERAL VIEWS DATE: 09/10/2018 11:06 AM HISTORY: Other - Please see comments See Reason for Exam COMPARISON: August 26, 2018 FINDINGS: Examination of the chest in PA and lateral projections does not reveal infiltrative or consolidative process in either lung field. There is no evidence of congestion or effusion. The cardiac and mediastinal structures appear normal. The visualized bony thorax is within normal limits. IMPRESSION: Chest within normal limits. DICTATION LOCATION: [address] Ernie Harrell DO DIAGNOSTIC IMAGING O RDERABLES * EXTRA TUBE (URINE CONNER) (09/10/2018 10:54 AM CDT) Urine URINE SPECIMEN OBTAINED BY CLEAN CATCH PROCEDURE / Unknown Collection / Unknown 09/10/2018 10:54 AM CDT 09/10/2018 10:54 AM CDT Ernie Harrell DO URINE ORDERABLES Performing Organization Address City/[facility] Co de Phone Number [facility] CLIA# [id number] [place] [address] * EKG 12-LEAD (09/10/2018 10:40 AM CDT) VENTRICULAR RATE 98 BPM INTERFACE SYSTEM ATRIAL RATE 98 BPM INTERFAC E SYSTEM P-R INTERVAL 132 ms INTERFA CE SYSTEM QRS DURATION 74 ms INTERFA CE SYSTEM Q-T INTERVAL 326 ms INTERFA CE SYSTEM QTC CALCULATION(BEZ ET) 416 ms INTERFACE SYSTEM P AXIS 34 degrees INTERFACE SYSTEM R AXIS 42 degrees INTERFACE SYSTEM T AXIS 18 degrees INTERFACE SYSTEM RESULT Normal sinus rhythm Normal ECG When compared with ECG of 26-AUG-2018 03:06, No significant change was found Confirmed by ESTRELLA HECTOR MD ([id number]) on 09/10/2018 6:58:26 PM INTERFACE SYSTEM 09/10/2018 10:4 0 AM CDT 09/10/2018 6:58 PM CDT Ernie Harrell DO ECG ORDERABLES Performing Organization Address City/[facility] Co de Phone Number INTERFACE SYSTEM Refer to clinic/hospital department * PROCALCITONIN (09/10/2018 10:40 AM CDT) PROCALCITONIN 0.05 <2.01 ng/mL 09/10/2018 12:09 PM CDT [facility] Blood Venipuncture / Unknown 09/10/2018 10:40 AM CDT 09/10/2018 10:54 AM CDT Narrative [facility] - 09/10/2018 12:09 PM CDT The utility of procalcitonin is limited/NOT recommended in certain populations (e.g. newborns, dialysis/ESRD, patients with recent major surgery/trauma/allison, liver cirrhosis, viral hepatitis, certain cancers, etc.). ??Procalcitonin levels MUST be interpreted in the context of the patient's clinical condition and CANNOT be solely relied upon for diagnosis of infection. <0.25 ng/mL: Bacterial infection unlikely, particularly lower respiratory tract infections. <0.5 ng/mL: Low risk for progression to severe sepsis/septic shock. Localized infection possible. ??Measurements done early (<6 hours) after systemic process starts may still be low. 0.5-2 ng/mL: Moderate risk for progression to severe sepsis/septic shock. ?? >2 ng/mL: High risk for progression to severe sepsis/septic shock. If antibiotics ARE administered, repeat testing is recommended every 2-3 days to help guide antibiotic cessation. ??Once a decrease of 80% or more has occurred from baseline, discontinuation of antibiotics should strongly be considered in clinically stable patients. ?? Procalcitonin is produced in the setting of systemic inflammation, particularly bacterial infections. ??It is detectable within 2-4 hours and peaks within 6-24 hours. Ernie Harrell DO CHEMISTRY ORDERABLES Performing Organization Address [facility] Co de Phone Number [id number] [place] [address] * TSH REFLEXIVE (09/10/2018 10:40 AM CDT) [facility] TSH 4.13 0.27 - 4.20 uIU/mL 09/10/2018 11:44 AM CDT [facility] Blood Venipuncture / Unknown 09/10/2018 10:40 AM CDT 09/10/2018 10:54 AM CDT Ernie Harrell DO CHEMISTRY ORDERABLES Performing Organization Address [facility] de Phone Number [facility] [id number] [address] [place] [address] * (ABNORMAL) HCG QUALITATIVE, URINE (09/10/2018 10:40 AM CDT) [facility] HCG QUAL URINE Negative Negative 09/10/2018 11:50 AM CDT [facility] COLOR UA Pale Yellow Pale to Dark Yellow 09/10/2018 11:50 AM CDT [facility] CLARITY UA Slightly Cloudy(A) Clear 09/10/2018 11:50 AM T [facility] Urine URINE SPECIMEN OBTAINED BY CLEAN CATCH PROCEDURE / Unknown Collection / Unknown 09/10/2018 10:40 AM CDT 09/10/2018 10:52 AM CDT Ernie Pepperadriano DO URINE ORDERABLES [facility] CLIA# [id number] [place] [address] * (ABNORMAL) URINALYSIS WITH REFLEX CULTURE (09/10/2018 10:40 AM CDT) COLOR UA Pale Yellow Pale to Dark Yellow 09/10/2018 11:12 AM CDT [facility] CLARITY UA Slightly Cloudy(A) Clear 09/10/2018 11:12 AM T [facility] SPECIFIC GRAVITY UA 1.018 1.003 - 1.035 09/10/2018 11:12 AM T [facility] PH UA 6.0 5.0 - 8.0 09/10/2018 11:12 AM T [facility] LEUKOCYTE ESTERASE UA Trace(A) Negative 09/10/2018 11:12 AM T [facility] Comment: For patients with 'trace' results, consider ordering a culture and sensitivity if clinically indicated. NITRITE UA Negative Negative 09/10/2018 11:12 AM CDT [facility] PROTEIN UA Negative Negative 09/10/2018 11:12 AM T [facility] GLUCOSE UA Negative Negative 09/10/2018 11:12 AM T [facility] KETONES UA Negative Negative 09/10/2018 11:12 AM T [facility] UROBILINOGEN UA Normal <2.0 mg/dL 9 11:12 AM CDT [facility] [employer] [facility] BILIRUBIN UA Negative Negative 09/10/2018 11:12 AM CDT [facility] BLOOD UA 1+(A) Negative 09/10/2018 11:12 AM CDT [facility] WBC UA 0-2 0 - 2 /hpf 09/10/2018 11:12 AM CDT [facility] RBC UA 0-2 0 - 2 /hpf 09/10/2018 11:12 AM CDT [facility] BACTERIA UA 1+(A) Negative /hpf 09/10/2018 11:12 AM CDT [facility] EPITHELIAL CELLS, URINE 11-25(A) 0 - 5 /hpf 09/10/2018 11:12 AM CDT [facility] HYALINE CAST None Seen None Seen, 0-2 /lpf 09/10/2018 11:12 AM CDT [facility] CRYSTALS, URINE Unidentifie d(A) None Seen 09/10/2018 11:12 AM CDT [facility] Ascorbic Acid UA Negative Negative 09/11/19 19 11:12 AM T [facility] Urine URINE SPECIMEN OBTAINED BY CLEAN CATCH PROCEDURE / Unknown Collection / Unknown 09/10/2018 10:40 AM CDT 09/10/2018 10:52 AM CDT Ernie Harrell DO URINE ORDERABLES [facility] CLIA# [id number] [place] [address] * COMPREHENSIVE METABOLIC PANEL (09/10/2018 10:40 AM CDT) SODIUM 141 136 - 145 mmol/L 09/10/2018 11:37 AM CDT [facility] POTASSIUM 4.0 3.4 - 5.1 mmol/L 09/10/2018 11:37 AM CDT [facility] CHLORIDE 103 98 - 107 mmol/L 09/10/2018 11:37 AM CDT [facility] CO2 26 22 - 29 mmol/L 09/10/2018 11:37 AM [facility] CALCIUM 9.5 8.6 - 10.4 mg/dL 09/10/2018 11:37 AM [facility] BUN 14 6 - 20 mg/dL 09/10/2018 11:37 AM [facility] CREATININE 0.97 0.50 - 1.00 mg/dL 09/10/2018 11:37 AM [facility] GLUCOSE 86 74 - 99 mg/dL 09/10/2018 11:37 AM [facility] TOTAL PROTEIN 7.4 6.3 - 8.7 g/dL 09/10/2018 11:37 AM [facility] ALBUMIN 4.0 3.5 - 5.2 g/dL 09/10/2018 11:37 AM [facility] BILIRUBIN TOTAL 0.2 0.2 - 1.3 mg/dL 09/10/2018 11:37 AM [facility] ALKALINE PHOSPHATASE 46 40 - 150 U/L 09/10/2018 11:37 AM [facility] AST 14 0 - 33 U/L 09/10/2018 11:37 AM [facility] ALT 13 0 - 33 U/L 09/10/2018 11:37 AM [facility] GFR >60 >=60 mL/min/1.7 3 sq meter 09/10/2018 11:37 AM [facility] Comment: eGFR has not been validated [...] GFR, >60 >=60 mL/min/1.7 3 sq meter 09/10/2018 11:37 AM CDT [facility] ANION GAP 12 8 - 16 mmol/L 09/10/2018 11:37 AM T [facility] Blood Venipuncture / Unknown 09/10/2018 10:40 AM CDT 09/10/2018 10:54 AM CDT Ernie Harrell DO CHEMISTRY ORDERABLES [facility] CLIA# [id number] [place] [address] * (ABNORMAL) CBC WITH DIFFERENTIAL (09/10/2018 10:40 AM CDT) WBC 6.2 4.5 - 10.5 K/uL 09/10/2018 11:31 AM T [facility] RBC 4.17 3.90 - 4.90 M/uL 09/10/2018 11:31 AM T [facility] HEMOGLOBIN 11.0(L) 11.8 - 14.8 g/dL 09/10/2018 11:31 AM T [facility] HEMATOCRIT 33.9(L) 35.5 - 44.0 % 09/10/2018 11:31 AM T [facility] MCV 81.2(L) 82.0 - 99.0 fL 09/10/2018 11:31 AM T [facility] MCH 26.5(L) 27.8 - 34.5 pg 09/10/2018 11:31 AM T [facility] MCHC 32.6 32.5 - 35.5 g/dL 09/10/2018 11:31 AM T [facility] RDW 18.9(H) 11.5 - 14.5 % 09/10/2018 11:31 AM CDT [facility] PLATELETS 326 160 - 420 K/uL 09/10/2018 11:31 AM T [facility] MPV 8.1(L) 8.7 - 12.7 fL 09/10/2018 11:31 AM CDT [facility] NEUTROPHILS 80(H) 45 - 70 % 09/10/2018 11:31 AM CDT [facility] LYMPHOCYTES 17 16 - 45 % 09/10/2018 11:31 AM CDT [facility] MONOCYTES 3 3 - 13 % 09/10/2018 11:31 AM CDT [facility] EOSINOPHILS 0 0 - 7 % 09/10/2018 11:31 AM CDT [facility] BASOPHILS 0 0 - 2 % 09/10/2018 11:31 AM CDT [facility] IMMATURE GRANULOCYTES 0 0 - 5 % 09/10/2018 11:31 AM CDT [facility] NEUTROPHIL ABSOLUTE 5.00 1.90 - 7.00 K/uL 09/10/2018 11:31 AM CDT [facility] LYMPHOCYTE ABSOLUTE 1.00 K/uL 09/10/2018 11:31 AM CDT [facility] MONOCYTE ABSOLUTE 0.20 K/uL 019 11:31 AM CDT [facility] EOSINOPHIL ABSOLUTE 0.00 0.00 - 0.70 K/uL 09/10/2018 11:31 AM CDT [facility] BASOPHILS ABSOLUTE 0.00 K/uL 09/10/2018 11:31 AM CDT [facility] IMMATURE GRANULOCYTES ABSOLUTE 0.00 K/uL 09/10/2018 11:31 AM CDT [facility] Blood Venipuncture / Unknown 09/10/2018 10:40 AM CDT 09/10/2018 10:54 AM CDT Ernie Harrell DO HEMATOLOGY ORDERABLE S [facility] CLIA# [id number] [place] [address] documented in this encounter Visit Diagnoses Diagnosis Chronic pain syndrome- Primary Adverse effect of drug, initial encounter documented in this encounter Care Teams Community Chest Officer Relationship Specialty Start Date End Date Huseyin Dangelo MD PCP - General 09/29/17 07/14/19 documented as of this encounter
--- OUTSIDE RECORDS SUMMARY | 2024-02-24 20:39 | XMS_ITS | Encounter Summary ---
Author Organization [facility] Address [address] [place] [address] Care Team Providers Care Complaint Inspector Name Role Phone Huseyin Dangelo MD Primary Care Provider [phone] Reason for Visit * Reason Comments general weakness Encounter Details Date Type Department Care Team (Late st Contact Info) Description 06/19/2018 6:31 AM CDT - 06/19/2018 7:29 AM CDT Emergency [facility] [id number] [place] [address] Tyler Gambino MD NO ADDRESS ON FILE Other forms of systemic lupus erythematosus, unspecified organ involvement status (Primary Dx) Discharge Disposition: Left Against Medical Advice Social [...] Sign Reading Time Taken Comments Blood Pressure 115/75 06/19/2018 6:33 AM CDT Pulse - - Temperature 36.5 ??C (97.7 ??F) 06/19/2018 6:28 AM CD T Respiratory Rate 18 06/19/2018 6:28 AM CDT Oxygen Saturation 100% 06/19/2018 7:00 AM CDT Inhaled Oxygen Concentration - - Weight 61.2 kg (135 lb) 06/19/2018 6:28 AM CDT Height 157.5 cm (5' 2 ) 06/19/2018 6:28 AM CDT Body Mass Index 24.69 06/19/2018 6:28 AM CDT documented in this encounter [...] as of this encounter ED Notes * Althea Perera RN - 06/19/2018 7:20 AM CDT Pt walked to [facility] from Ed room, stating, So the doctor said there's really nothing he can do for me, so I'm just leaving. I'm not waiting around in the room forever if they can't do anything. Pt A&Ox4, ambulatory with even & steady gait at time of departure. Pt educated on leavingAMA. Pt departed ED, calm & politely stated, Thank you as she was leaving. Primary RN notified. * Shauna Davalos RN - 06/19/2018 6:47 AM CDT Pt to ED c/o lupus flare up . Pt states she was diagnosed with lupus 2 months ago. Pt having generalized pain and weakness. Pt states she can barely move . * Tyler Gambino MD - 06/19/2018 6:25 AM CDT History of Present Illness Carito Rausch is a 28 y.o. female Primary Care Doctor: Huseyin Dangelo MD Patient information was obtained from primarily from the patient, nurse's notes, medical records History/Exam limitations: None Chief Complaint: Muscle aches and arthralgias Carito Rausch is a pleasant 28 y.o. female who presents with arthralgias for the last for 5 months. She tells me that she is actually seeing a manager ship, Dr. Strickland and diagnosed with lupus and from neuralgia. She tells me that she is been taking lupus which sounds like it improves her symp toms but she is also had unintentional weight gain so at times she is trying to stop the prednisone. She states that when she does not take the prednisone she has worse muscle aches, does not feel like she can function well and thus she presents here. She states that she wants a second opinion and that is why she is at the hospital today. She is concerned that she could be misdiagnosed. She is open not not a stroke she states she last spoke to her manager ship 6 weeks ago which is frustrated that her symptoms are not improving and thus she presents here. Relevant Medical History Past Medical History: Past Medical History: Diagnosis Date ??? Connective tissue disease ??? Fibromyalgia ??? Lupus Past Surgical History: Past Surgical History: Procedure Laterality Date ??? HX APPENDECTOMY Home Medications: Patient's Home Medications Current Home Medications HYDROCODONE-ACETAMINOPHEN (NORCO) 5-325 MG TABLET HYDROXYCHLOROQUINE (PLAQUENIL) 200 MG TABLET ONDANSETRON (ZOFRAN ODT) 8 MG TABLET, RAPID DISSOLVE ONDANSETRON (ZOFRAN) 4 MG TABLET PREDNISONE (DELTASONE) 5 MG TABLET VALACYCLOVIR (VALTREX) 1 GRAM TABLET Medications Modified during this Encounter Medications Discontinued during this Encounter Allergies: No Known Allergies Social History: Social History Tobacco Use ??? Smoking status: Former Smoker Packs/day: 0.25 Types: Cigarettes Last attempt to quit: 12/11/2017 Years since quittin.5 ??? Smokeless tobacco: Never Used Substance Use Topics ??? Alcohol use: Yes Comment: socially Family History: No family history on file. Review of Systems Constitutional: No fevers or chills, HENT: No congestion, postnasal drip Eye: No photophobia Respiratory: No cough, shortness of breath Cardiac: No leg pain, chest pain or palpitations GI: No abdominal pain or diarrhea : No blood in the urine MS: Joint gale Skin: No acute rash Heme: No spontaneous bleeding Neuro: No acute headache, numbness or weakness Psych: No change in mood See above and also HPI, otherwise negative. Physical Exam Blood pressure 115/75, temperature 97.7 ??F (36.5 ??C), temperature source Oral, resp. rate 18, height 5' 2 (1.575 m), weight 61.2 kg (135 lb), SpO2 100 %, not currently . General: Alert, no obvious distress, Head: Normocephalic, no obvious abnormality Eyes: No acute lesions Nose: No drainage or sinus tenderness Mouth: Moist membranes Neck: No JVD, Supple Back: No CVA tenderness Chest Wall: No injury, tenderness or deformity Heart: (Difficult to auscultate in the ED) RRR, no murmur, rub or gallop Lung: No respiratory distress, Equal breath sounds, CTA bilaterally Extremities: Mild edema of the hands, mild tenderness of the joints Pulses: Equal pulses x 4 Abdomen: Soft, non-tender, no pulsatile mass, bowel sounds normal Rectal: Not indicated Skin: No acute rash, specifically no petechiae or purpura. Lymph: No lymphadenopathy Neuro: No facial droop, good and equal strength and sensation in all ext. Medical Decision Making and ED Course Medical Decision Making: This patient is presenting with a chronic issue, namely lupus that sounds like it has been responding to steroids but she is been trying to wean herself off because she does not like the side effects. Discussed that I am not a manager ship in the best I can offer her would be a second opinion by referral to another manager ship. She already has a manager ship and primary care physician and I stated they would be the ones to best manage her medications. She appears well and I do not see any indication for blood work. Additionally, I would imagine her manager ship would like to perform an order specialized work-up. While I was in the process of finding her another referral she promptly left. Condition at disposition: Stable Vital signs prior to disposition: Blood pressure 115/75, temperature 97.7 ??F (36.5 ??C), temperature source Oral, resp. rate 18, height 5' 2 (1.575 m), weight 61.2 kg (135 lb), SpO2 100 %, not currently . Note: This H+P was created with the aid of dictation software, thus there may be some word substitutions or errors. documented in this encounter Plan of Treatment Not on file documented as of this encounter Visit Diagnoses Diagnosis Other forms of systemic lupus erythematosus, unspecified organ involvement status- Primary documented in this encounter Care Teams Complaint Inspector Relationship Specialty Start Date End Date Huseyin Dangelo MD PCP - General 09/29/17 07/14/19 documented as of this encounter
--- OUTSIDE RECORDS SUMMARY | 2024-02-24 20:39 | XMS_ITS | Encounter Summary ---
Author Organization [facility] Address [address] [place] [address] Care Team Providers Care Information Security Analyst Name Role Phone Huseyin Dangelo MD Primary Care Provider [phone] Reason for Visit * Reason Comments Back Pain * Auth/Cert Specialty Diagnoses / Procedures Referred By Jud freeman Referred To Contact Emergency Medicine [facility] Emergency Department [address] [place] [address] Referral ID Status Reason Start Date Expiration Date Visits Re quested Visits Authorized [id number] 1 1 Encounter Details Date Type Department Care Team (Late st Contact Info) Description 09/01/2018 4:51 PM CDT - 09/01/2018 5:47 PM CDT Emergency [facility] Emergency Department [id number] [place] [id number] Myalgia (Primary Dx); Other chronic pain Discharge Disposition: Home or Self Care [...] Reading Time Taken Comments Blood Pressure 119/73 09/01/2018 5:17 PM CDT Pulse 81 09/01/2018 5:17 PM CDT Temperature 37.1 ??C (98.7 ??F) 09/01/2018 2:32 PM CD T Respiratory Rate 18 09/01/2018 5:17 PM CDT Oxygen Saturation 100% 09/01/2018 5:17 PM CDT Inhaled Oxygen Concentration - - Weight 63.5 kg (140 lb) 09/01/2018 2:32 PM CDT Height 160 cm (5' 3 ) 09/01/2018 2:32 PM CDT Body Mass Index 24.8 09/01/2018 2:32 PM CDT documented in this encounter Discharge Instructions * Discharge Instructions* Sudheer Trammell PA-C - 09/01/2018 5:27 PM CDT While taking the Toradol please hold your diclofenac * Attachments The following attachments cannot be sent through Care Everywhere. * Chronic Pain (Telugu) * Myalgia (Telugu) documented in this encounter Medications at Time of Discharge Medication Sig Dispensed Refills Start Date End Date hydroxychloroquine (PLAQUENIL) 200 mg tablet Take 200 mg by mouth daily. valACYclovir (VALTREX) 1 gram tablet Take 1,000 mg by mouth 2 times daily. 04/27/2020 documented as of this encounter ED Notes * Nicole Gan - 09/01/2018 3:01 PM CDT Pt to Xray. * Armando Pettit RN - 09/01/2018 2:38 PM CDT Emergency Department Adult Flank Pain Protocol [facility] ORDERS ARE ENTERED PER PROTOCOL Enter the protocol in the patient's electronic health record using smartphrase: .[email or web address] Nursing Orders: o Insert peripheral IV o Keep NPO Laboratory Orders: o CBC with diff ([id number]) o CMP (LAB17) o Urinalysis with Reflex Microscopy ([id number]) o If female of childbearing age: HCG Qualitative urine ([id number]) if sending to lab or serum HCG qualitative (preferred) Medication Orders: o Sodium chloride 0.9% (normal saline) flush 5mL every 8 hours o Sodium chloride 0.9% (normal saline) flush 5mL PRN for saline lock or medication administration o Ask attending physician for order for narcotic and anti-emetic o Toradol 15mg IV if no allergy or known renal failure Additional Instructions: o Straight catheterization for urine if patient is on menses Initiating Department(s): Date: 09/2017 Department: Adult Emergency Department Approved by: Armando Millan MD, Welding Teacher, Emergency Medicine Date: 10-27-17 Approved by: Flaco Coelho, Pastry Chef, Emergency Services and Shop Repairer Date: 10-27-17 Approved by: Andrey Lopez MD, Emergency Medicine Date: 07-01-18 Approved by: Medical Executive Committee Date: 11-13-17 Approved by: Pharmacy & Therapeutics Committee Date: 11-08-17 * Armando Pettit RN - 09/01/2018 2:35 PM CDT The pt arrives to the ER as an AOx4 female from home with a chief complaint of acute pain. Per the pt she was seen here last week for acute pain. She states that her back and hands are in pain 2/2 her fibromyalgia. She states that she was at home and took x3 tramadol with no relief. She states the pain in her hands radiates to her shoulders, neck, back, and flank. She denies any trauma. The pt appears to be in no acute distress upon assessment. The pt's respirations continue to be even and non-labored with a symmetrical chest rise and fall observed. Past Surgical History: Procedure Laterality Date ??? HX APPENDECTOMY Past Medical History: Diagnosis Date ??? Anxiety ??? Connective tissue disease ??? Depression ??? Fibromyalgia ??? HTN (hypertension) ??? Lupus Allergies Allergen Reactions ??? Methylprednisolone Syncope * Kilo Clements DO - 09/01/2018 2:31 PM CDT CC: Back Pain , HPI: Carito Rausch is a 28 y.o. female who presents with significant past medical history of anxiety, connective tissue disease, depression, fibromyalgia, hypertension, lupus presents to the emerge department with acute on chronic vague symptoms of fatigue, myalgia, joint pain. Patient states that the symptoms have been steadily worsening over the last year. Patient sees rheumatology is currently prescribed Plaquenil, low-dose prednisone, tramadol, Xanax., However patient notes that her medications are not improving. Patient reports her pain is worsening, patient reports that she is come to the emerge department numerous times secondary to pain. Patient denies new symptoms denies fever chills shortness of breath chest pain rashes dysuria hematuria or other infectious/constitutional symptoms. Past Medical History: has a past medical history of Anxiety, Connective tissue disease, Depression,Fibromyalgia, HTN (hypertension), and Lupus. She also has [...] Thromboembolism, Ventricular arrhythmia, or VRE (vancomycin-resistant Enterococci). Negative unless noted above Past Surgical History: has a past surgical history that includes hx appendectomy. Negative unless noted above Med List: Patient's Home Medications Current Home Medications ALPRAZOLAM (XANAX) 0.25 MG TABLET CYCLOBENZAPRINE (FLEXERIL) 10 MG TABLET HYDROCODONE-ACETAMINOPHEN (NORCO) 5-325 MG TABLET HYDROXYCHLOROQUINE (PLAQUENIL) 200 MG TABLET ONDANSETRON (ZOFRAN) 4 MG TABLET TRAMADOL (ULTRAM) 50 MG TABLET VALACYCLOVIR (VALTREX) 1 GRAM TABLET Medications Modified during this Encounter Medications Discontinued during this Encounter Med list reviewed and attached to chart Allergies: Methylprednisolone Immunizations: Not applicable unless noted above Family Hx: family history is not on file. Negative unless noted above Social Hx: reports that she quit smoking about 8 months ago. Her smoking use included cigarettes. She smoked 0.25 packs per day. She has never used smokeless tobacco. She reports that she drinks alcohol. She reports that she has current or past drug history. Drugs: Marijuana and Cocaine. History source: Patient, nursing notes, and EMS notes when applicable, unless noted above Hx/PE/ROS limited by: ROS: Constitutional: No fevers or chills, recent illness, change in medications, or unintentional wt loss. Eye/ENT/Mouth: No visual changes, no epistaxis or sore throat Cardiovascular: No palpitations, no chest pain Respiratory: No stridor, no shortness of breath, no cough Gastrointestinal: No nausea, no vomiting, no diarrhea, no abdominal pain Geniturinary: No dysuria, no hematuria Skin: No acute rashes or edema Musculoskeletal: +acute joint swelling, + muscle pain, + decreased range of motion Neurological: No headache, no new numbness Psychiatric: No mood changes See HPI for further details. All systems negative except as marked. Physical Exam: Constitutional: well developed, well nourished, no acute distress Eye: normal conjunctivae, pupils equal and reactive, EOMI ENT/Mouth: external ears clear, no swelling or exudates to oral pharynx CV: regular rate and rhythm, no murmurs/rubs or gallops Respiratory: clear to auscultation bilaterally no wheezes/rhonchi/crackles GI: abdomen: soft nondistended, non ridged, nontender x 4 quadrants, bowel sounds present, no organomegaly or palpable masses Skin: dry, no rashes noted Musculoskeletal/Back: no ttp x 4 ext, back nontender midline, flank non ternder Extremities: No cyanosis, no edema. DP pulses 2+ bilateral Neurological: No gross neurological motor or sensory deficits, upper and lower extremity strength 5/5 bilateral, CN II-XII intact Psych: Pt is alert and oriented x3 w good recall and normal affect VS: Vitals: 09/01/18 1432 Temp: 98.7 ??F (37.1 ??C) Heart Rate: 97 bpm BP: 119/82 Resp: 16 SpO2: 100% Vitals reviewed: WNL Pulse Ox Interpretation: Saturation: 100 Oxygen Delivery: Room air Interpretation: No hypoxia at this time. Rhythm strip interpretation: Normal sinus rhythm, no arrhythmia noted. Ventricular rate (bpm):97 ECG Note: Results for orders placed or performed during the hospital encounter of 08/26/18 EKG 12-LEAD Result Value Ref Range VENTRICULAR RATE 80 BPM ATRIAL RATE 80 BPM P-R INTERVAL 138 ms QRS DURATION 84 ms Q-T INTERVAL 370 ms QTC CALCULATION(BEZET) 426 ms P AXIS 33 degrees R AXIS 16 degrees T AXIS 13 degrees RESULT Normal sinus rhythm with sinus arrhythmia Normal ECG When compared with ECG of 19-AUG-2018 08:29, No significant change was found Confirmed by EMMA BARRON MD ([id number]) on 08/26/2018 6:26:48 PM Pertinent Labs: CBC WITH DIFFERENTIAL - Abnormal Result Value WBC 7.0 RBC 4.27 HEMOGLOBIN 11.0 (*) HEMATOCRIT 33.6 (*) MCV 78.6 (*) MCH 25.8 (*) MCHC 32.8 RDW 19.6 (*) PLATELETS 322 MPV 7.6 (*) NEUTROPHILS 92 (*) LYMPHOCYTES 6 (*) MONOCYTES 2 (*) EOSINOPHILS 0 BASOPHILS 0 IMMATURE GRANULOCYTES 0 NEUTROPHIL ABSOLUTE 6.40 LYMPHOCYTE ABSOLUTE 0.40 MONOCYTE ABSOLUTE 0.10 EOSINOPHIL ABSOLUTE 0.00 BASOPHILS ABSOLUTE 0.00 IMMATURE GRANULOCYTES ABSOLUTE 0.00 COMPREHENSIVE METABOLIC PANEL - Abnormal SODIUM 138 POTASSIUM 4.5 CHLORIDE 101 CO2 24 CALCIUM 9.3 BUN 13 CREATININE 0.71 GLUCOSE 107 (*) TOTAL PROTEIN 7.3 ALBUMIN 4.1 BILIRUBIN TOTAL 0.2 ALKALINE PHOSPHATASE 45 AST 13 ALT 12 GFR >60 GFR, >60 ANION GAP 13 URINALYSIS WITH REFLEX CULTURE - Abnormal COLOR UA Pale Yellow CLARITY UA Clear SPECIFIC GRAVITY UA 1.019 PH UA 7.0 LEUKOCYTE ESTERASE UA Negative NITRITE UA Negative PROTEIN UA 1+ (*) GLUCOSE UA Negative KETONES UA Negative UROBILINOGEN UA Normal BILIRUBIN UA Negative BLOOD UA Negative WBC UA 0-2 RBC UA 0-2 BACTERIA UA 1+ (*) EPITHELIAL CELLS, URINE 0-5 HYALINE CAST None Seen Ascorbic Acid UA Negative HCG QUALITATIVE, URINE - Normal HCG QUAL URINE Negative COLOR UA Yellow CLARITY UA Clear CK Images: XR THORACIC SPINE 3 VW XR CERVICAL SPINE 2 OR 3 VIEWS XR LUMBAR SPINE 2 OR 3 VW XR THORACIC SPINE 3 VW Radiologist Impression IMPRESSION: No osseous abnormality. DICTATION LOCATION: Location [address] [place] [address] XR CERVICAL SPINE 2 OR 3 VIEWS Radiologist Impression IMPRESSION: No acute osseous injury. DICTATION LOCATION: Location [address] [place] [address] XR LUMBAR SPINE 2 OR 3 VW Radiologist Impression IMPRESSION: No acute osseous abnormality. DICTATION LOCATION: Location [address] [place] [address] All imaging independently reviewed by Sudheer Trammell PA-C. Medical Decision Making Note: Differential Dx: DDx includes: Sepsis, infection, lupus flare, polymyositis, connective tissue disorder, fibromyalgia, Management: See ED course. Case discussed with ED attending/ED MEKHI: Data reviewed: All current, pertinent and timely studies (laboratory, imaging, and procedures) wereordered and results reviewed by Sudheer Trammell PA-C unless otherwise noted. Triage notes and available nursing notes reviewed. Previous medical record reviewed when available. Repeat vital signs reviewed. PCP: Huseyin Dangelo MD Plan:, labs, imaging, symptom control, consult Medications administered in triage: none ED Course MDM:The patient presents to the emergency department with 1 year onset of insidiously worsening chronic fatigue, joint pain, myalgia, in the setting of diagnosis of lupus and fibromyalgia/connective tissue disorder being managed by rheumatology. -the patient is hemodynamically stable, with normal vitals without fever or tachycardia. -on physical exam the patient is found to have benign physical exam, patient has no obvious joint erythema edema, patient initiates full range of motion, is amatory without assistance, normal lung sounds normal abdominal exam, normal neurological exam -on ER evaluation the patient is found to have normal CBC, CMP, non-concerning urinalysis negative hCG, inflammatory markers from August 26 unremarkable, CK unremarkable -Imaging shows no acute osseous abnormality -given the patient's age, presentation, chronic onset of vague nonspecific symptoms with negative ER work-up and lack of concerning neurological infectious symptoms it is reasonable to discharge the patient home with short course of Toradol in place of her diclofenac, follow-up to her supply aide for further evaluation I have spent considerable time counseling the patient on the nature of their pain/symptoms, their results, what to expect and how to manage their symptoms. I have also given my typical strict return precautions and let them know that are always welcome to call or return to the ED if their symptoms are not improving or they develop new or progressive symptoms. I ensured understanding of the instructions utilizing teach-back. All questions and concerns presented at the time of discharge were answered. Dispo:home Clinical Impression: 1. Myalgia 2. Chronic pain Note: This note was created with the aid of dictation software, thus there may be some word substitutions or errors. Patient was not seen personally by myself. I was not involved in the evaluation, MDM, or disposition of this case. Kilo Clements DO, 09/01/2018 5:32 PM documented in this encounter Plan of Treatment Not on file documented as of this encounter Procedures Procedure Name Priority Date/Time Associated Diagnosis Comments URINALYSIS WITH REFLEX CULTURE Stat 09/01/2018 4:25 PM CDT HCG QUALITATIVE, URINE Stat 9 4:25 PM CDT XR THORACIC SPINE 3 VW Stat 9 3:28 PM CDT XR CERVICAL SPINE 2 OR 3 VIEWS Stat 09/01/2018 3:27 PM CDT XR LUMBAR SPINE 2 OR 3 VW Stat 09/01/2018 3:23 PM CDT CBC WITH DIFFERENTIAL Stat 09/01/2018 2:48 PM CDT CK Stat 09/01/2018 2:48 PM CDT COMPREHENSIVE METABOLIC PANEL Stat 09/01/2018 2:48 PM CDT documented in this encounter Results * HCG QUALITATIVE, URINE (09/01/2018 4:25 PM CDT) HCG QUAL URINE Negative Negative 09/01/2018 4:34 PM CDT [facility] COLOR UA Yellow Pale to Dark Yellow 09/01/2018 4:34 PM CDT [facility] CLARITY UA Clear Clear 09/01/2018 4:34 PM CDT [facility] Urine URINE SPECIMEN OBTAINED BY CLEAN CATCH PROCEDURE / Unknown Collection / Unknown 09/01/2018 4:25 PM CDT 09/01/2018 4:27 PM CDT Protocol [facility] Emergency URINE ORDERAB LES [facility] CLIA# [id number] [address] [place] [address] * (ABNORMAL) URINALYSIS WITH REFLEX CULTURE (09/01/2018 4:25 PM CDT) COLOR UA Pale Yellow Pale to Dark Yellow 09/01/2018 4:43 PM CDT [facility] CLARITY UA Clear Clear 09/01/2018 4:43 PM CDT [facility] SPECIFIC GRAVITY UA 1.019 1.003 - 1.035 09/01/2018 4:43 PM CDT [facility] PH UA 7.0 5.0 - 8.0 09/01/2018 4:43 PM CDT [facility] LEUKOCYTE ESTERASE UA Negative Negative 09/01/2018 4:43 PM CDT [facility] NITRITE UA Negative Negative 09/01/2018 4:43 PM CDT [facility] PROTEIN UA 1+(A) Negative 09/01/2018 4:43 PM CDT [facility] GLUCOSE UA Negative Negative 09/01/2018 4:43 PM CDT [facility] KETONES UA Negative Negative 09/01/2018 4:43 PM CDT [facility] UROBILINOGEN UA Normal <2.0 mg/dL 9 4:43 PM CDT [facility] BILIRUBIN UA Negative Negative 09/01/2018 4:43 PM CDT [facility] BLOOD UA Negative Negative 09/01/2018 4:43 PM CDT [facility] WBC UA 0-2 0 - 2 /hpf 09/01/2018 4:43 PM CDT [facility] RBC UA 0-2 0 - 2 /hpf 09/01/2018 4:43 PM CDT [facility] BACTERIA UA 1+(A) Negative /hpf 09/01/2018 4:43 PM CDT [facility] EPITHELIAL CELLS, URINE 0-5 0 - 5 /hpf 09/01/2018 4:43 PM CDT [facility] HYALINE CAST None Seen None Seen, 0-2 /lpf 09/01/2018 4:43 PM CDT [facility] Ascorbic Acid UA Negative Negative 09/02/19 19 4:43 PM CDT [facility] Urine URINE SPECIMEN OBTAINED BY CLEAN CATCH PROCEDURE / Unknown Collection / Unknown 09/01/2018 4:25 PM CDT 09/01/2018 4:28 PM CDT Protocol [facility] Emergency MD URINE ORDERAB LES [facility] CLIA# [id number] [place] [address] * XR THORACIC SPINE 3 VW (09/01/2018 3:28 PM CDT) Anatomical Region Laterality Modality Spine Computed Radiogr aphy 09/01/2018 3:28 PM CDT Impressions 09/01/2018 3:55 PM CDT IMPRESSION: No osseous abnormality. DICTATION LOCATION: [address] Narrative 09/01/2018 3:55 PM CDT XR THORACIC SPINE 3 VW DATE: 09/01/2018 3:28 PM HISTORY: Trauma. FINDINGS: The vertebral body heights and alignments are normal. No significant intervertebral disc space narrowing. The posterior aspects of the ribs are intact. Procedure Note Demetrio Del Valle MD - 09/01/2018 XR THORACIC SPINE 3 VW DATE: 09/01/2018 3:28 PM HISTORY: Trauma. FINDINGS: The vertebral body heights and alignments are normal. No significant intervertebral disc space narrowing. The posterior aspects of the ribs are intact. IMPRESSION: No osseous abnormality. DICTATION LOCATION: Location [address] [place] [address] Flaco Mono Estevan MD DIAGNOSTIC IM AGING ORDERABLES * XR CERVICAL SPINE 2 OR 3 VIEWS (09/01/2018 3:27 PM CDT) Anatomical Region Laterality Modality Spine Computed Radiogr aphy 09/01/2018 3:28 PM CDT Impressions 09/01/2018 3:55 PM CDT IMPRESSION: No acute osseous injury. DICTATION LOCATION: [address] 09/01/2018 3:55 PM CDT XR CERVICAL SPINE 2 OR 3 VIEWS DATE: 09/01/2018 3:27 PM HISTORY: Trauma. FINDINGS: The vertebral body heights and alignments are normal. No significant intervertebral disc space narrowing. The base of the odontoid process is intact. There is no prevertebral soft tissue swelling. Procedure Note Demetrio Del Valle MD - 09/01/2018 XR CERVICAL SPINE 2 OR 3 VIEWS DATE: 09/01/2018 3:27 PM HISTORY: Trauma. FINDINGS: The vertebral body heights and alignments are normal. No significant intervertebral disc space narrowing. The base of the odontoid process is intact. There is no prevertebral soft tissue swelling. IMPRESSION: No acute osseous injury. DICTATION LOCATION: [address] Flaco Barreto MD DIAGNOSTIC AGING ORDERABLES * XR LUMBAR SPINE 2 OR 3 VW (09/01/2018 3:23 PM CDT) Anatomical Region Laterality Modality Spine Computed Radiogr aphy 09/01/2018 3:27 PM CDT Impressions 09/01/2018 3:53 PM CDT IMPRESSION: No acute osseous abnormality. DICTATION LOCATION: [address] 09/01/2018 3:53 PM CDT XR LUMBAR SPINE 2 OR 3 VW DATE: 09/01/2018 3:23 PM HISTORY: Trauma. FINDINGS: The vertebral body heights and alignments are normal. No significant intervertebral disc space. The facets are normal. Procedure Note Demetrio Del Valle MD - 09/01/2018 XR LUMBAR SPINE 2 OR 3 VW DATE: 09/01/2018 3:23 PM HISTORY: Trauma. FINDINGS: The vertebral body heights and alignments are normal. No significant intervertebral disc space. The facets are normal. IMPRESSION: No acute osseous abnormality. DICTATION LOCATION: Location [address] [place] [address] Flaco Barreto MD DIAGNOSTIC IM AGING ORDERABLES * (ABNORMAL) CK (09/01/2018 2:48 PM CDT) CK 16(L) 20 - 180 U/L 09/01/2018 5:49 PM CDT [facility] Blood Venipuncture / Unknown 09/01/2018 2:48 PM CDT 09/01/2018 2:50 PM CDT Sudheer Trammell PA-C CHEMISTRY ORDERABLES [facility] CLIA# [id number] [address] [place] [address] * (ABNORMAL) COMPREHENSIVE METABOLIC PANEL (09/01/2018 2:48 PM CDT) Pathologist [facility] SODIUM 138 136 - 145 mmol/L 09/01/2018 3:14 PM CDT [facility] POTASSIUM 4.5 3.4 - 5.1 mmol/L 09/01/2018 3:14 PM CDT [facility] CHLORIDE 101 98 - 107 mmol/L 09/01/2018 3:14 PM CDT [facility] CO2 24 22 - 29 mmol/L 09/01/2018 3:14 PM CDT [facility] CALCIUM 9.3 8.6 - 10.4 mg/dL 09/01/2018 3:14 PM CDT [facility] BUN 13 6 - 20 mg/dL 09/01/2018 3:14 PM CDT [facility] CREATININE 0.71 0.50 - 1.00 mg/dL 09/01/2018 3:14 PM CDT [facility] GLUCOSE 107(H) 74 - 99 mg/dL 09/01/2018 3:14 PM CDT [facility] TOTAL PROTEIN 7.3 6.3 - 8.7 g/dL 09/01/2018 3:14 PM CDT [facility] ALBUMIN 4.1 3.5 - 5.2 g/dL 09/01/2018 3:14 PM CDT [facility] BILIRUBIN TOTAL 0.2 0.2 - 1.3 mg/dL 09/01/2018 3:14 PM CDT [facility] ALKALINE PHOSPHATASE 45 40 - 150 U/L 09/01/2018 3:14 PM CDT [facility] AST 13 0 - 33 U/L 09/01/2018 3:14 PM CDT [facility] ALT 12 0 - 33 U/L 09/01/2018 3:14 PM T [facility] GFR >60 >=60 mL/min/1.7 3 sq meter 09/01/2018 3:14 PM T [facility] Comment: eGFR has not been validated [...] GFR, >60 >=60 mL/min/1.7 3 sq meter 09/01/2018 3:14 PM CDT [facility] ANION GAP 13 8 - 16 mmol/L 09/01/2018 3:14 PM CDT [facility] Blood Venipuncture / Unknown 09/01/2018 2:48 PM CDT 09/01/2018 2:50 PM CDT Protocol [facility] Emergency MD CHEMISTRY ORD ERABLES [facility] CLIA# [id number] [place] [address] * (ABNORMAL) CBC WITH DIFFERENTIAL (09/01/2018 2:48 PM CDT) [facility] WBC 7.0 4.5 - 10.5 K/uL 09/01/2018 2:54 PM CDT [facility] RBC 4.27 3.90 - 4.90 M/uL 09/01/2018 2:54 PM CDT [facility] HEMOGLOBIN 11.0(L) 11.8 - 14.8 g/dL 09/01/2018 2:54 PM CDT [facility] HEMATOCRIT 33.6(L) 35.5 - 44.0 % 09/01/2018 2:54 PM CDT [facility] MCV 78.6(L) 82.0 - 99.0 fL 09/01/2018 2:54 PM CDT [facility] MCH 25.8(L) 27.8 - 34.5 pg 09/01/2018 2:54 PM CDT [facility] MCHC 32.8 32.5 - 35.5 g/dL 09/01/2018 2:54 PM CDT [facility] RDW 19.6(H) 11.5 - 14.5 % 09/01/2018 2:54 PM CDT [facility] PLATELETS 322 160 - 420 K/uL 09/01/2018 2:54 [facility] MPV 7.6(L) 8.7 - 12.7 fL 09/01/2018 2:54 PM CDT [facility] NEUTROPHILS 92(H) 45 - 70 % 09/01/2018 2:54 PM CDT [facility] LYMPHOCYTES 6(L) 16 - 45 % 09/01/2018 2:54 PM CDT [facility] MONOCYTES 2(L) 3 - 13 % 09/01/2018 2:54 PM CDT [facility] EOSINOPHILS 0 0 - 7 % 09/01/2018 2:54 PM CDT [facility] BASOPHILS 0 0 - 2 % 09/01/2018 2:54 PM CDT [facility] IMMATURE GRANULOCYTES 0 0 - 5 % 09/01/2018 2:54 PM CDT [facility] NEUTROPHIL ABSOLUTE 6.40 1.90 - 7.00 K/uL 09/01/2018 2:54 PM CDT [facility] LYMPHOCYTE ABSOLUTE 0.40 K/uL 09/01/2018 2:54 PM CDT [facility] MONOCYTE ABSOLUTE 0.10 K/uL 019 2:54 PM CDT [facility] EOSINOPHIL ABSOLUTE 0.00 0.00 - 0.70 K/uL 09/01/2018 2:54 PM CDT [facility] BASOPHILS ABSOLUTE 0.00 K/uL 09/01/2018 2:54 PM CDT [facility] IMMATURE GRANULOCYTES ABSOLUTE 0.00 K/uL 09/01/2018 2:54 PM CDT [facility] Blood Venipuncture / Unknown 09/01/2018 2:48 PM CDT 09/01/2018 2:50 PM CDT Protocol [facility] Emergency MD HEMATOLOGY OR DERABLES [facility] CLIA# [id number] [address] [place] [address] documented in this encounter Visit Diagnoses Diagnosis Myalgia- Primary Mylagia and myositis, unspecified Other chronic pain documented in this encounter Administered Medications Inactive Administered Medications - up to 3 most recent administrations Medication Order MAR Action Action Date Dose Rate Site ketorolac (TORADOL) injection 15 mg 15 mg, IV, ONE TIME ONLY, 1 dose, On 09/01/18 at 1445, Routine Given 09/01/2018 5:21 PM CDT 15 mg documented in this encounter Active and Recently Administered Medications Times are shown in CDT. Scheduled Medication Order 08/30/2018 08/31/2018 09/01/2018 ketorolac (TORADOL) injection 15 mg (COMPLETED) 15 mg, IV, ONE TIME ONLY, 1 dose, On 09/01/18 at 1445, Routine 1721 (Given - Provid er: Gilmar Ceballos RN) documented in this encounter Care Teams Information Security Analyst Relationship Specialty Start Date End Date Huseyin Dangelo MD PCP - General 09/29/17 07/14/19 documented as of this encounter
--- OUTSIDE RECORDS SUMMARY | 2024-02-24 20:39 | XMS_ITS | Encounter Summary ---
Author Organization [facility] Address [address] [place] [address] Care Team Providers [employer] Name Role Phone Huseyin Dangelo MD Primary Care Provider [phone] Reason for Visit * Reason Comments Neck Pain Back Pain * Auth/Cert Specialty Diagnoses / Procedures Referred By Jud freeman Referred To Contact Emergency Medicine [facility] Emergency Department [address] [place] [address] Referral ID Status Reason Start Date Expiration Date Visits Re quested Visits Authorized [id number] 1 1 Encounter Details Date Type Department Care Team (Late st Contact Info) Description 08/19/2018 8:34 AM CDT - 08/19/2018 10:15 AM CDT Emergency [facility] Emergency Department [address] [place] [address] Myalgia (Primary Dx) Discharge Disposition: Home or [...] Reading Time Taken Comments Blood Pressure 118/78 08/19/2018 10:14 AM CDT Pulse - - Temperature 36.9 ??C (98.5 ??F) 08/19/2018 8:25 AM CD T Respiratory Rate 16 08/19/2018 10:14 AM CDT Oxygen Saturation 99% 08/19/2018 10:14 AM CDT Inhaled Oxygen Concentration - - Weight 61.2 kg (135 lb) 08/19/2018 8:25 AM CDT Height 160 cm (5' 3 ) 08/19/2018 8:25 AM CDT Body Mass Index 23.91 08/19/2018 8:25 AM CDT documented in this encounter Discharge Instructions * Attachments The following attachments cannot be sent through Care Everywhere. * Myalgia (Citizen Of [place]) documented in this encounter Medications at Time of Discharge Medication Sig Dispensed Refills Start Date End Date hydroxychloroquine (PLAQUENIL) 200 mg tablet Take 200 mg by mouth daily. valACYclovir (VALTREX) 1 gram tablet Take 1,000 mg by mouth 2 times daily. 04/27/2020 documented as of this encounter ED Notes * El Perez, EMT-P - 08/19/2018 8:09 AM CDT TB Screen instructions: Complete the [...] initiate Airborne Isolation and contact provider. * Shaye Melgoza PA - 08/19/2018 8:08 AM CDT HISTORY OF PRESENT ILLNESS Carito Rausch, a 28 y.o. female presents to the ED with a Chief Complaint of Neck Pain and Back Pain Subjective HPI Patient is a 28-year-old female with a history of lupus and fibromyalgia who presents with multiplemedical complaints. Patient states for the last several weeks she has had increasing neck back and entire upper body pain. She states it is different than her normal lupus pain. She states her muscles are sore when she opens her mouth or takes a deep occasional paresthesias throughout her entire upper body ago. She reports that she is having difficulties getting herself dressed but denies true weakness. She has not had any fever/chills, nausea/vomiting. Patient states last week that she was having blood in her diarrhea but that has gotten better. She is still having diarrhea. Patient also states she has had some swelling in her bilateral hands. REVIEW OF SYSTEMS Review of Systems Gastrointestinal: Positive for diarrhea. Musculoskeletal: Positive for arthralgias, back pain, joint swelling and neck pain. Neurological: Paresthesias to entire upper body All other systems reviewed and are negative. [...] MEDICATIONS Patient's Home Medications Current Home Medications CYCLOBENZAPRINE (FLEXERIL) 10 MG TABLET HYDROCODONE-ACETAMINOPHEN (NORCO) 5-325 MG TABLET HYDROXYCHLOROQUINE (PLAQUENIL) 200 MG TABLET ONDANSETRON (ZOFRAN) 4 MG TABLET VALACYCLOVIR (VALTREX) 1 GRAM TABLET Medications Modified during this Encounter Medications Discontinued during this Encounter Objective PHYSICAL EXAM INITIAL VS BP: 134/69 (08/19/18824), Heart Rate: 100 bpm (08/19/18824), Resp: 18 (08/19/18824), Pulse: (not recorded), Temp: 98.5 ??F (36.9 ??C) (08/19/18824), Temp src: Oral (08/19/18824), SpO2: 100 % (08/19/18824), Height: 5' 3 (160 cm) (08/19/18824), Weight: 61.2 kg (135 lb) (08/19/18824),BMI (Calculated): 23.92 (08/19/18824) No LMP recorded. Physical Exam Constitutional: She is oriented to person, place, and time. She appears well- developed and well-nourished. No distress. Body mass index is 23.91 kg/m??. Normal weight. HENT: Head: Normocephalic and atraumatic. Mouth/Throat: Oropharynx is clear and moist. No abnormal dentition. No trismus. Eyes: Conjunctivae and EOM are normal. Right eye exhibits no discharge. Left eye exhibits no discharge. Neck: Normal range of motion. Neck supple. No signs of meningismus Cardiovascular: Normal rate, regular rhythm and normal heart sounds. Pulmonary/Chest: Effort normal and breath sounds normal. No respiratory distress. Abdominal: Soft. Bowel sounds are normal. She exhibits no distension and no mass. There is no tenderness. Musculoskeletal: Normal range of motion. She exhibits edema. She exhibits no tenderness or deformity. Mild puffy edema to bilateral hands and left side of face. Lymphadenopathy: She has no cervical adenopathy. Neurological: She is alert and oriented to person, place, and time. No sensory deficit. She exhibits normal muscle tone. Skin: Skin is warm and dry. No rash noted. She is not diaphoretic. No erythema. No pallor. Psychiatric: She has a normal mood and affect. Her behavior is normal. Judgment and thought contentnormal. Nursing note and vitals reviewed. DIAGNOSTICS LAB: CBC WITH DIFFERENTIAL - Abnormal Result Value WBC 7.0 RBC 4.15 HEMOGLOBIN 10.6 (*) HEMATOCRIT 32.6 (*) MCV 78.5 (*) MCH 25.5 (*) MCHC 32.5 RDW 19.4 (*) PLATELETS 373 MPV 7.5 (*) NEUTROPHILS 83 (*) LYMPHOCYTES 11 (*) MONOCYTES 4 EOSINOPHILS 1 BASOPHILS 1 IMMATURE GRANULOCYTES 0 NEUTROPHIL ABSOLUTE 5.80 LYMPHOCYTE ABSOLUTE 0.80 MONOCYTE ABSOLUTE 0.30 EOSINOPHIL ABSOLUTE 0.10 BASOPHILS ABSOLUTE 0.10 IMMATURE GRANULOCYTES ABSOLUTE 0.00 CK - Abnormal CK 18 (*) C-REACTIVE PROTEIN - Abnormal CRP 7.8 (*) COMPREHENSIVE METABOLIC PANEL - Normal SODIUM 139 POTASSIUM 4.1 CHLORIDE 103 CO2 24 CALCIUM 9.4 BUN 13 CREATININE 0.71 GLUCOSE 87 TOTAL PROTEIN 7.3 ALBUMIN 3.9 BILIRUBIN TOTAL 0.3 ALKALINE PHOSPHATASE 40 AST 16 ALT 13 GFR >60 GFR, >60 ANION GAP 12 URINALYSIS WITH REFLEX CULTURE - Normal COLOR UA Pale Yellow CLARITY UA Clear SPECIFIC GRAVITY UA 1.012 PH UA 6.0 LEUKOCYTE ESTERASE UA Negative NITRITE UA Negative PROTEIN UA Negative GLUCOSE UA Negative KETONES UA Negative UROBILINOGEN UA Normal BILIRUBIN UA Negative BLOOD UA Negative Ascorbic Acid UA Negative HCG QUALITATIVE, BLOOD - Normal HCG QUAL, BLOOD Negative SEDIMENTATION RATE - Normal ESR (SEDIMENTATION RATE) 10 RADIOLOGY: CT HEAD WO CONTRAST Preliminary Result IMPRESSION: No acute intracranial abnormality. DICTATION LOCATION: Location [address] [place] [address] EKG: PROCEDURES Procedures MEDICAL DECISION MAKING AND PLAN OF CARE ED Course as of Aug 19 101SunAug 19, 2018 0927 Patient pulled me back in her room and now states that the symptoms have been going on since December 2017. She reports she had a still born in October and the symptoms started shortly thereafter. Patient states that she has been researching her symptoms and feels that she has ALS or MS. Shetold the RN that she had had an MRI but it was inconclusive because she would not stop moving. Patient again confirms that her symptoms are coming and going throughout various times in a single day and nothing is persisting over several days or weeks. [RL] 0939 Normal sinus rhythm. No STEMI, no ectopy EKG 12-LEAD [RL] 1009 Unfortunately when I first evaluated this patient I was quite busy and did not have time to review her past medical records. However, I specifically asked if she had been evaluated for this before. 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 Weekly asked if she had seen a neurologist and she stated no. Once I was able I did review the patient's medical records and found that she has had extensive work-ups for the same symptoms over the last several months. She was admitted into the hospital 1 month ago and was evaluated by a neurologist at that time. She again was persistent that she felt her symptoms were related to MS or ALS according to her research. This was ruled out by neurologyand at that time she had a normal MRI though there was some motion defect. A psychosomatic source of her complaints was favored. I have explained all of this to the patient and explained that gettingmultiple work-ups with the same answer is not in her best interest. I again recommended she follow-up with her PCP and did provide Dr. Kee's contact information if she would like to see him as an outpatient. [RL] ED Course User Index [RL] Shaye Melgoza PA [facility] Diagnostic Considerations: Differential diagnosis: Viral syndrome, rhabdomyolysis, lupus or inflammatory process, ICM, ICH, psychosomatic I have reviewed previous: MRI, labs and notes I have reviewed current: ECG, labs and imaging I have reviewed nursing notes related to past medical history, social history, and review of systems and agree, unless otherwise noted. Clinical Course: I discussed the findings, diagnosis, and treatment plan with the patient including the need to follow-up with her PCP and neurology. I explained that continued ER visits or not in her best interest as we would not be finding any further answers. I attempted to alleviate the patient's concern regarding MS or ALS. However, I do not feel as I was successful in this. . New Prescriptions for this Encounter LAST VS BP: 134/69 (08/19/18824), Heart Rate: 100 bpm (08/19/18824), Resp: 18 (08/19/18824), Pulse: (not recorded), Temp: 98.5 ??F (36.9 ??C) (08/19/18824), Temp src: Oral (08/19/18824), SpO2: 100 % (08/19/18824) CLINICAL IMPRESSION Final diagnoses: [M79.10] Myalgia (Primary) DISPOSITION, EDUCATION AND MEDICATION RECONCILIATION Medications reconciled. See after visit summary for patient education on discharged patients. ED Disposition ED Disposition Condition User Date/Time Comment Discharge Stable LovelessShaye PA Mon Aug 19, 2018 10:05 AM ATTESTATION STATEMENTS documented in this encounter Plan of Treatment Not on file documented as of this encounter Procedures Procedure Name Priority Date/Time Associated Diagnosis Comments URINALYSIS WITH REFLEX CULTURE Stat 08/19/2018 9:[address] HEAD WO CONTRAST Stat 08/19/2018 9 :33 AM CDT HCG QUALITATIVE, SERUM Stat 9 8:55 AM CDT CBC WITH DIFFERENTIAL Stat 08/19/2018 8:55 AM CDT SEDIMENTATION RATE Stat 08/19/2018 8: 55 AM CDT C-REACTIVE PROTEIN Stat 08/19/2018 8: 55 AM CDT CK Stat 08/19/2018 8:55 AM CDT COMPREHENSIVE METABOLIC PANEL Stat 08/19/2018 8:55 AM CDT EKG 12-LEAD Stat 08/19/2018 8:29 AM CDT documented in this encounter Results * URINALYSIS WITH REFLEX CULTURE (08/19/2018 9:57 AM CDT) COLOR UA Pale Yellow Pale to Dark Yellow 08/19/2018 10:04 AM CDT [facility] CLARITY UA Clear Clear 08/19/2018 10:04 AM CDT [facility] SPECIFIC GRAVITY UA 1.012 1.003 - 1.035 08/19/2018 10:04 AM CDT [facility] PH UA 6.0 5.0 - 8.0 08/19/2018 10:04 AM CDT [facility] LEUKOCYTE ESTERASE UA Negative Negative 08/19/2018 10:04 AM CDT [facility] NITRITE UA Negative Negative 08/19/2018 10:04 AM CDT [facility] PROTEIN UA Negative Negative 08/19/2018 10:04 AM CDT [facility] GLUCOSE UA Negative Negative 08/19/2018 10:04 AM CDT [facility] KETONES UA Negative Negative 08/19/2018 10:04 AM CDT [facility] UROBILINOGEN UA Normal <2.0 mg/dL 9 10:04 AM CDT [facility] BILIRUBIN UA Negative Negative 08/19/2018 10:04 AM CDT [facility] BLOOD UA Negative Negative 08/19/2018 10:04 AM CDT [facility] Ascorbic Acid UA Negative Negative 08/20/19 19 10:04 AM CDT [facility] Urine URINE SPECIMEN OBTAINED BY CLEAN CATCH PROCEDURE / Unknown Collection / Unknown 08/19/2018 9:57 AM CDT 08/19/2018 9:59 AM CDT Shaye Abad PA URINE ORDERABLES [facility] [[email or web address]] CLIA# [id number] [address] [place] [address] * CT HEAD WO CONTRAST (08/19/2018 9:33 AM CDT) Anatomical Region Laterality Modality Head Computed [facility] 08/19/2018 9:35 AM CDT Impressions 08/19/2018 10:56 AM CDT IMPRESSION: No acute intracranial abnormality. DICTATION LOCATION: Location [facility] Narrative 08/19/2018 10:56 AM CDT COMPUTED TOMOGRAPHY SCAN OF THE HEAD WITHOUT CONTRAST DATE: ??08/19/2018 9:33 AM HISTORY: Upper body paresthesia COMPARISON: 07/11/2018 TECHNIQUE: Standard noncontrast CT was performed with contiguous axial images acquired from skull base to vertex. The examination was performed with the adjustment of mA according to the patient size and/or the use of Iterative Reconstruction Technique. FINDINGS: There is no extra-axial fluid collection. ??The ventricles are of normal size, shape and morphology. ??No mass effect or midline shift is present. ??No evidence of acute hemorrhage. ??The tejeda-white matter differentiation is normal. ??The visualized portions of the orbits and the paranasal sinuses and mastoids are normal. ??No fractures are identified. ?? Procedure Note Del ValleDemetrio MD - 08/19/2018 COMPUTED TOMOGRAPHY SCAN OF THE HEAD WITHOUT CONTRAST DATE: 08/19/2018 9:33 AM HISTORY: Upper body paresthesia COMPARISON: 07/11/2018 TECHNIQUE: Standard noncontrast CT was performed with contiguous axial images acquired from skull base to vertex. The examination was performed with the adjustment of mA according to the patient size and/or the use of Iterative Reconstruction Technique. FINDINGS: There is no extra-axial fluid collection. The ventricles are of normal size, shape and morphology. No mass effect or midline shift is present. No evidence of acute hemorrhage. The tejeda-white matter differentiation is normal. The visualized portions of the orbits and the paranasal sinuses and mastoids are normal. No fractures are identified. IMPRESSION: No acute intracranial abnormality. DICTATION LOCATION: Location [address] [place] [address] ORDERABLES * (ABNORMAL) C-REACTIVE PROTEIN (08/19/2018 8:55 AM CDT) CRP 7.8(H) <5.0 mg/L 08/19/2018 9:28 AM CDT [facility] Blood Venipuncture / Unknown 08/19/2018 8:55 AM CDT 08/19/2018 9:01 AM CDT Shaye [employer] PA CHEMISTRY ORDERABLES [facility] CLIA# [id number] [address] [place] [address] * SEDIMENTATION RATE (08/19/2018 8:55 AM CDT) ESR (SEDIMENTATION RATE) 10 0 - 20 mm/Hr 08/19/2018 9:22 AM CDT [facility] Blood Venipuncture / Unknown 08/19/2018 8:55 AM CDT 08/19/2018 9:01 AM CDT Shaye Loveless PA HEMATOLOGY ORDERABLE S Performing Organization Address City/[facility]/ZIP Co de Phone Number [facility] CLIA# [id number] [address] [place] [address] * HCG QUALITATIVE, BLOOD (08/19/2018 8:55 AM CDT) Pathologist [facility] HCG QUAL, BLOOD Negative Negative 08/19/2018 9:22 AM CDT [facility] Blood Venipuncture / Unknown 08/19/2018 8:55 AM CDT 08/19/2018 9:01 AM CDT Shaye Loveless PA CHEMISTRY ORDERABLES Performing Organization Address City/[facility]/ZIP Co de Phone Number [facility] CLIA# [id number] [address] [place] [address] * (ABNORMAL) CK (08/19/2018 8:55 AM CDT) CK 18(L) 20 - 180 U/L 08/19/2018 9:28 AM CDT [facility] Blood Venipuncture / Unknown 08/19/2018 8:55 AM CDT 08/19/2018 9:01 AM CDT Shaye Loveless PA CHEMISTRY ORDERABLES [facility] [[email or web address]] CLIA# [id number] [address] [place] [address] * COMPREHENSIVE METABOLIC PANEL (08/19/2018 8:55 AM CDT) SODIUM 139 136 - 145 mmol/L 08/19/2018 9:28 AM CDT [facility] [email or web address]] POTASSIUM 4.1 3.4 - 5.1 mmol/L 08/19/2018 9:28 AM CDT [facility] CHLORIDE 103 98 - 107 mmol/L 08/19/2018 9:28 AM CDT [facility] CO2 24 22 - 29 mmol/L 08/19/2018 9:28 AM CDT [facility] [[email or web address]] CALCIUM 9.4 8.6 - 10.4 mg/dL 08/19/2018 9:28 AM T [facility] [email or web address]] BUN 13 6 - 20 mg/dL 08/19/2018 9:28 AM T [facility] [email or web address]] CREATININE 0.71 0.50 - 1.00 mg/dL 08/19/2018 9:28 AM CDT [facility] [[email or web address]] GLUCOSE 87 74 - 99 mg/dL 08/19/2018 9:28 AM T [facility] [email or web address]] TOTAL PROTEIN 7.3 6.3 - 8.7 g/dL 08/19/2018 9:28 AM [facility] ALBUMIN 3.9 3.5 - 5.2 g/dL 08/19/2018 9:28 AM T [facility] [email or web address]] BILIRUBIN TOTAL 0.3 0.2 - 1.3 mg/dL 08/19/2018 9:28 AM CDT [facility] ALKALINE PHOSPHATASE 40 40 - 150 U/L 08/19/2018 9:28 AM CDT [facility] [[email or web address]] AST 16 0 - 33 U/L 08/19/2018 9:28 AM CDT [facility] ALT 13 0 - 33 U/L 08/19/2018 9:28 AM CDT [facility] GFR >60 >=60 mL/min/1.7 3 sq meter 08/19/2018 9:28 AM T [facility] Comment: eGFR has not been [...] GFR, >60 >=60 mL/min/1.7 3 sq meter 08/19/2018 9:28 AM T [facility] [email or web address]] ANION GAP 12 8 - 16 mmol/L 08/19/2018 9:28 AM [facility] Blood Venipuncture / Unknown 08/19/2018 8:55 AM CDT 08/19/2018 9:01 AM CDT Shaye CAGLE CHEMISTRY ORDERABLES [facility] [[email or web address]] CLIA# [id number] [address] [place] [address] * (ABNORMAL) CBC WITH DIFFERENTIAL (08/19/2018 8:55 AM CDT) WBC 7.0 4.5 - 10.5 K/uL 08/19/2018 9:06 AM [facility] RBC 4.15 3.90 - 4.90 M/uL 08/19/2018 9:06 AM T [facility] [email or web address]] HEMOGLOBIN 10.6(L) 11.8 - 14.8 g/dL 08/19/2018 9:06 AM T [facility] [email or web address]] HEMATOCRIT 32.6(L) 35.5 - 44.0 % 08/19/2018 9:06 AM T [facility] [[email or web address]] MCV 78.5(L) 82.0 - 99.0 fL 08/19/2018 9:06 AM T [facility] [email or web address]] MCH 25.5(L) 27.8 - 34.5 pg 08/19/2018 9:06 AM CDT [facility] MCHC 32.5 32.5 - 35.5 g/dL 08/19/2018 9:06 AM CDT [facility] RDW 19.4(H) 11.5 - 14.5 % 08/19/2018 9:06 AM CDT [facility] PLATELETS 373 160 - 420 K/uL 08/19/2018 9:06 AM CDT [facility] MPV 7.5(L) 8.7 - 12.7 fL 08/19/2018 9:06 AM CDT [facility] NEUTROPHILS 83(H) 45 - 70 % 08/19/2018 9:06 AM CDT [facility] LYMPHOCYTES 11(L) 16 - 45 % 08/19/2018 9:06 AM CDT [facility] MONOCYTES 4 3 - 13 % 08/19/2018 9:06 AM CDT [facility] EOSINOPHILS 1 0 - 7 % 08/19/2018 9:06 AM CDT [facility] BASOPHILS 1 0 - 2 % 08/19/2018 9:06 AM CDT [facility] IMMATURE GRANULOCYTES 0 0 - 5 % 08/19/2018 9:06 AM CDT [facility] NEUTROPHIL ABSOLUTE 5.80 1.90 - 7.00 K/uL 08/19/2018 9:06 AM CDT [facility] LYMPHOCYTE ABSOLUTE 0.80 K/uL 08/19/2018 9:06 AM CDT [facility] MONOCYTE ABSOLUTE 0.30 K/uL 019 9:06 AM CDT [facility] EOSINOPHIL ABSOLUTE 0.10 0.00 - 0.70 K/uL 08/19/2018 9:06 AM CDT [facility] BASOPHILS ABSOLUTE 0.10 K/uL 08/19/2018 9:06 AM CDT [facility] IMMATURE GRANULOCYTES ABSOLUTE 0.00 K/uL 08/19/2018 9:06 AM CDT [facility] Blood Venipuncture / Unknown 08/19/2018 8:55 AM CDT 08/19/2018 9:01 AM CDT Shaye CAGLE HEMATOLOGY ORDERABLE S [facility] CLIA# [id number] [address] [place] [address] * EKG 12-LEAD (08/19/2018 8:29 AM CDT) VENTRICULAR RATE 84 BPM INTERFACE SYSTEM ATRIAL RATE 84 BPM INTERFAC E SYSTEM P-R INTERVAL 128 ms INTERFA CE SYSTEM QRS DURATION 82 ms INTERFA CE SYSTEM Q-T INTERVAL 356 ms INTERFA CE SYSTEM QTC CALCULATION(BEZ ET) 420 ms INTERFACE SYSTEM P AXIS 29 degrees INTERFACE SYSTEM R AXIS 21 degrees INTERFACE SYSTEM T AXIS 15 degrees INTERFACE SYSTEM RESULT Normal sinus rhythm Nonspecific T wave abnormality Abnormal ECG When compared with ECG of 11-JUL-2018 11:01, T wave amplitude has decreased in Anterior leads Confirmed by EMMA BARRON MD ([id number]) on 08/19/2018 2:21:21 PM INTERFACE SYSTEM 08/19/2018 8:29 AM CDT 08/19/2018 2:21 PM CDT Protocol [facility] MD ECG ORDERABLE S INTERFACE SYSTEM Refer to clinic/hospital department documented in this encounter Visit Diagnoses Diagnosis Myalgia- Primary Mylagia and myositis, unspecified documented in this encounter Care Teams [employer] Relationship Specialty Start Date End Date Huseyin Dangelo MD PCP - General 09/29/17 07/14/19 documented as of this encounter
--- OUTSIDE RECORDS SUMMARY | 2024-02-24 20:39 | XMS_ITS | Encounter Summary ---
Author Organization [facility] Address [address] [place] [address] Care Team Providers Care Director Of Revenue Name Role Phone Brian Mon MD Primary Care Provider Encounter Details Date Type Department Care Team (Late st Contact Info) Description 05/19/2004 Outpatient [facility] Family Therapy [address] [place] [phone] Hanh Benavidez Social History Tobacco Use [...] of this encounter Care Teams Director Of Revenue Relationship Specialty Start Date End Date Brian Mon MD [address] [place] [phone] (work) PCP - General Internal Medicine 07/15/19 documented as of this encounter
--- OUTSIDE RECORDS SUMMARY | 2024-02-24 20:39 | XMS_ITS | Encounter Summary ---
Author Organization [facility] Address [address] [place] [address] Care Team Providers Care Company Marker Name Role Phone Huseyin Dangelo MD Primary Care Provider [phone] Reason for Visit * Reason Comments Lupus pain over entire bod y x1 week with joint swelling. pt reports recent dx of lupus, pt reports she was seen at [facility] and left because she was frustrated because they didnt do anything pt reports some relief with steroid this AM * Auth/Cert Specialty Diagnoses / Procedures Referred By Jud freeman Referred To Contact Emergency Medicine [facility] Emergency Dept [address] [place] [address] Referral ID Status Reason Start Date Expiration Date Visits Re quested Visits Authorized [id number] 1 1 Encounter Details Date Type Department Care Team (Late st Contact Info) Description 06/19/2018 12:50 PM CDT - 06/19/2018 2:31 PM CDT Emergency [facility] Emergency Department [address] [place] [address] Chin Zhang MD [address] [place] [address] Arthralgia, unspecified joint (Primary Dx); Systemic lupus erythematosus, unspecified SLE type, unspecified organ involvement status Discharge Disposition: Home or Self Care Social [...] Reading Time Taken Comments Blood Pressure 111/65 06/19/2018 1:30 PM CDT Pulse 86 06/19/2018 1:30 PM CDT Temperature 36.8 ??C (98.3 ??F) 06/19/2018 12:09 PM C DT Respiratory Rate 18 06/19/2018 12:09 PM CDT Oxygen Saturation 99% 06/19/2018 1:30 PM CDT Inhaled Oxygen Concentration - - Weight 61.2 kg (135 lb) 06/19/2018 11:21 AM CDT Height 157.5 cm (5' 2 ) 06/19/2018 11:21 AM CDT Body Mass Index 24.69 06/19/2018 11:21 AM CDT documented in this encounter Discharge Instructions * Attachments The following attachments cannot be sent through Care Everywhere. * Joint Pain (Vietnamese) * Lupus (Vietnamese) documented in this encounter Medications at Time [...] as of this encounter ED Notes * Minal De La O RN - 06/19/2018 1:41 PM CDT norco given as ordered. Patient/family has been informed about benefits and any potential clinically significant side effects or other concerns regarding the administration of the drug they have justbeen given. POC reviewed * Minal De La O RN - 06/19/2018 1:25 PM CDT Labs drawn and sent * Minal De La O RN - 06/19/2018 1:15 PM CDT Pt arrived to ED 27 c/o swelling. Agree w/ triage note. Pt reports increased swelling over last couple of weeks. reports taking increased dose of steroids to help w/ swelling without relief this AM. Reports pain worse with movement. Pt a&ox4. Respirations even and unlabored. Skin PWD. VSS. POC reviewed * Chin Zhang MD - 06/19/2018 11:06 AM CDT HISTORY OF PRESENT ILLNESS Carito Rausch, a 28 y.o. female presents to the ED with a Chief Complaint of Lupus Subjective 1:00 PM: Carito Rausch is a 28 y.o. female with a history of fibromyalgia and Lupus, who states she was recently diagnosed with lupus presents to the Emergency Department with complaints of worsening body aches and joint pain for the past 5 months. Pt states she constantly has pain in her wrists, jaws but has moved to knee and leg pain, and bilateral hand swelling. Pt reports taking 30 mg of Prednisone today instead of her prescribed 10 mg, but not taking Plaquenil. She states she spoke with her Yarder Operator Dr. Strickland today who sent her to the ED for further evaluation with blood work. Pt states she was seen at [facility] but the doctor looked scared so she left and came here instead. Per medical records, she has not been taking her Prednisone regularly because it makes her muscle aches worse and causes unintentional weight gain. Pt has also been noncompliant with medicatons including Plaquenil. She presented to [facility] this AM seeking a second opinion on her diagnosis. Pthas been seen in the ED frequently for the past several months complaining of body aches. No nausea or vomiting No fever cough, sore throat, or runny nose Physician(s): Huseyin Dangelo MD History provided by: The patient and medical records Arrived by: Private vehicle Lupus Location: General body aches and arthralgias Severity: Moderate Onset quality: Gradual Duration: 5 months Timing: Constant Progression: Worsening Chronicity: New Associated symptoms: myalgias (worsening body aches, general, BLE) Associated symptoms: no abdominal pain, no chest pain, no congestion, no cough, no diarrhea, no fatigue, no fever, no headaches, no nausea, no rash, no shortness of breath, no sore throat and no vomiting REVIEW OF SYSTEMS Review of Systems Constitutional: Negative for chills, fatigue and fever. HENT: Negative for congestion and sore throat. Eyes: Negative for pain. Respiratory: Negative for cough, shortness of breath and stridor. Cardiovascular: Negative for chest pain. Gastrointestinal: Negative for abdominal pain, diarrhea, nausea and vomiting. Genitourinary: Negative for dysuria. Musculoskeletal: Positive for arthralgias (worsening, general, knees), back pain, joint swelling (worsening) and myalgias (worsening body aches, general, BLE). Negative for neck pain. Bilateral hand swelling Skin: Negative for rash and wound. Neurological: Negative for dizziness, syncope, weakness and headaches. Psychiatric/Behavioral: Negative for behavioral problems, confusion and suicidal ideas. PAST MEDICAL HISTORY REVIEWED MEDICAL: Patient has a past medical history of Connective tissue disease, Fibromyalgia, and Lupus. SURGICAL: Patient has a past surgical history that includes hx appendectomy. FAMILY: Patient's family history is not on file. SOCIAL: reports that she quit smoking about 6 months ago. Her smoking use included cigarettes. [...] HOME MEDICATIONS Discharge Medication List as of 06/19/2018 2:20 PM CONTINUE these medications which have NOT CHANGED Details predniSONE (DELTASONE) 5 mg tablet Take 10 mg by mouth daily with breakfast . hydroxychloroquine (PLAQUENIL) 200 mg tablet Take 200 mg by mouth daily. ondansetron (ZOFRAN ODT) 8 mg Tablet, Rapid Dissolve Dissolve 1 tablet on top of tongue then swallow with saliva every 8 hours as needed for nausea or vomiting., Disp-10 Tablet, R-0 ondansetron (ZOFRAN) 4 mg Tablet Take 1 [...] daily. Objective PHYSICAL EXAM INITIAL VS BP: 121/79 (06/19/18 1121), Heart Rate: 92 bpm (06/19/181120), Resp: 16 (06/19/18 112), Pulse: 83(06/19/18 1310), Temp: 98.3 ??F (36.8 ??C) (06/19/181120), Temp src: Oral (06/19/181120), SpO2: 100 % (06/19/181120), Height: 5' 2 (157.5 cm) (06/19/181120), Weight: 61.2 kg (135 lb) (06/19/181120), BMI (Calculated): 24.69 (06/19/181120) No LMP recorded. Physical Exam Constitutional: She is oriented to person, place, and time. HENT: Head: Normocephalic and atraumatic. Eyes: Pupils are equal, round, and reactive to light. Conjunctivae and EOM are normal. Neck: Normal range of motion. Neck supple. Cardiovascular: Normal rate, regular rhythm, normal heart sounds and intact distal pulses. Pulmonary/Chest: Effort normal and breath sounds normal. Abdominal: Soft. Bowel sounds are normal. She exhibits no distension. There is no tenderness. Musculoskeletal: Normal range of motion. She exhibits edema (hands bilaterally). She exhibits no tenderness or deformity. All joints with complete ROM. No erythema or warmth to joints. Neurological: She is alert and oriented to person, place, and time. She has normal strength. No cranial nerve deficit or sensory deficit. She displays a negative Romberg sign. GCS eye subscore is 4. GCS verbal subscore is 5. GCS motor subscore is 6. Skin: Skin is warm and dry. No erythema. Psychiatric: She has a normal mood and affect. Her behavior is normal. Nursing note and vitals reviewed. DIAGNOSTICS LAB: URINALYSIS WITH REFLEX MICROSCOPIC - Abnormal Result Value COLOR UA Pale Yellow CLARITY UA Slightly Cloudy (*) SPECIFIC GRAVITY UA 1.014 PH UA 7.0 LEUKOCYTE ESTERASE UA Negative NITRITE UA Negative PROTEIN UA Negative GLUCOSE UA Negative KETONES UA Negative UROBILINOGEN UA Normal BILIRUBIN UA Negative BLOOD UA Negative WBC UA 0-2 RBC UA 0-2 BACTERIA UA Negative EPITHELIAL CELLS, URINE 11-25 (*) HCG QUALITATIVE, URINE - Abnormal HCG QUAL URINE Negative COLOR UA Pale Yellow CLARITY UA Slightly Cloudy (*) CBC WITH DIFFERENTIAL - Abnormal WBC 8.9 RBC 4.56 HEMOGLOBIN 10.1 (*) HEMATOCRIT 34.8 (*) MCV 76.3 (*) MCH 22.1 (*) MCHC 29.0 (*) RDW 18.2 (*) RDW-STDEV 49.8 (*) PLATELETS 407 (*) MPV 10.1 NEUTROPHILS 92 LYMPHOCYTES 5 MONOCYTES 2 EOSINOPHILS 0 BASOPHILS 0 IMMATURE GRANULOCYTES 0 NEUTROPHIL ABSOLUTE 8.20 (*) LYMPHOCYTE ABSOLUTE 0.48 (*) MONOCYTE ABSOLUTE 0.16 EOSINOPHIL ABSOLUTE 0.01 BASOPHILS ABSOLUTE 0.01 IMMATURE GRANULOCYTES ABSOLUTE 0.03 COMPREHENSIVE METABOLIC PANEL - Abnormal SODIUM 136 POTASSIUM 4.4 CHLORIDE 103 CO2 22 CALCIUM 9.6 BUN 11 CREATININE 0.55 GLUCOSE 104 (*) TOTAL PROTEIN 8.1 ALBUMIN 4.1 BILIRUBIN TOTAL 0.3 ALKALINE PHOSPHATASE 57 AST 15 ALT 12 GFR >60 GFR, >60 ANION GAP 11 C-REACTIVE PROTEIN - Abnormal CRP 5.1 (*) SEDIMENTATION RATE - Abnormal ESR (SEDIMENTATION RATE) 33 (*) CK - Abnormal CK 19 (*) EXTRA TUBE EXTRA TUBE EXTRA TUBE (GREEN NO GEL) EXTRA TUBE (SST/GOLD) DNA AUTOABS DOUBLE STRANDED POC , URINE RADIOLOGY: No orders to display EKG: PROCEDURES Procedures MEDICAL DECISION MAKING AND PLAN OF CARE --On initial encounter, discussed plan to call Dr. Strickland, Rheumatology. 2:10 PM: Consulted and shared pt's labs with Dr. Strickland, Rheumatology. He does not recommend any change in her regimen and instructs pt to follow up with him as soon as she can and they will fit herinto his schedule. 2:16 PM: Updated pt on their lab results and plan. Patient will be discharged home. Recommended follow up with Dr. Strickland, Rheumatology. RTER with worsening sx. Pt understands and agrees with the plan. All questions and concerns addressed. The patient is stable for discharge. ED provider and ED nurse verbally discussed patient plan of care at this time. MDM Summary Statement: 28 year old female with history of lupus presents to the Emergency Department complaining of joint pain that she's had for several months. She denies any new symptoms. Lab work is unremarkable. Her Yarder Operator recommends no change in her medication and discharge with follow up. I have reviewed previous: notes and labs I have reviewed current: labs I have reviewed nursing notes related to past medical history, social history, and review of systems and agree, unless otherwise noted. Consults: other (Rheumatology) Medications Administered During the ED Stay from 06/19/2018 1106 to 06/19/2018 1557 Date/Time Order Dose Route Action 06/19/2018 1341 HYDROcodone-acetaminophen (NORCO) 5-325 mg per tablet 1 Tablet 1 Tablet Oral Given Discharge Medication List as of 06/19/2018 2:20 PM CONTINUE these medications which have NOT CHANGED Details predniSONE (DELTASONE) 5 mg tablet Take 10 mg by mouth daily with breakfast . hydroxychloroquine (PLAQUENIL) 200 mg tablet Take 200 mg by mouth daily. ondansetron (ZOFRAN ODT) 8 mg Tablet, Rapid Dissolve Dissolve 1 tablet on top of tongue then swallow with saliva every 8 hours as needed for nausea or vomiting., Disp-10 Tablet, R-0 ondansetron (ZOFRAN) 4 mg Tablet Take 1 Tablet (4 mg) by mouth every 8 hours as needed for Nausea.,Disp-15 Tablet, R-None HYDROcodone-acetaminophen (NORCO) 5-325 mg tablet Take 1 Tablet by mouth every 4 hours as needed for Pain. Max Daily Amount: 6 Tablets, Disp-20 Tablet, R-0 valACYclovir (VALTREX) 1 gram tablet Take 1,000 mg by mouth 2 times daily. LAST VS BP: 111/65 (06/19/18 1330), Heart Rate: 83 bpm (06/19/18 1209), Resp: 18 (06/19/18 1209), Pulse: 86(06/19/18 1330), Temp: 98.3 ??F (36.8 ??C) (06/19/18 1209), Temp src: Oral (06/19/18 1209), SpO2: 99 % (06/19/18 1330) CLINICAL IMPRESSION Final diagnoses: [M25.50] Arthralgia, unspecified joint (Primary) [M32.9] Systemic lupus erythematosus, unspecified SLE type, unspecified organ involvement status DISPOSITION, EDUCATION AND MEDICATION RECONCILIATION Medications reconciled. See after visit summary for patient education on discharged patients. ED Disposition ED Disposition Condition User Date/Time Comment Discharge Stable Chin Zhang MD SunJun 19, 2018 2:19 PM ATTESTATION STATEMENTS This note has been prepared by Ashley Prather acting as a scribe for Dr. Chin Zhang on 06/19/2018 at 2:23 PM. The scribe's documentation has been prepared under my direction and personally reviewed by me, Dr. Chin Zhang, in its entirety on 06/19/18 at 3:57 PM. I confirm that the note above accurately reflects all work, treatment, procedures, and medical decision making performed by me. documented in this encounter Plan of Treatment Not on file documented as of this encounter Procedures Procedure Name Priority Date/Time Associated Diagnosis Comments DNA AUTOABS DOUBLE STRANDED Stat 06/19/2018 1:25 PM CDT EXTRA TUBE (SST/GOLD) Stat 06/19/2018 12:23 PM CDT EXTRA TUBE Stat 06/19/2018 12:23 PM CDT EXTRA TUBE Stat 06/19/2018 12:23 PM CDT EXTRA TUBE (GREEN NO GEL) Stat 06/19/2018 12:23 PM CDT COMPLEMENT C3/C4 PANEL Stat 9 12:23 PM CDT CBC WITH DIFFERENTIAL Stat 06/19/2018 12:23 PM CDT SEDIMENTATION RATE Stat 06/19/2018 12 :23 PM CDT C-REACTIVE PROTEIN Stat 06/19/2018 12 :23 PM CDT CK Stat 06/19/2018 12:23 PM CDT COMPREHENSIVE METABOLIC PANEL Stat 06/19/2018 12:23 PM CDT URINALYSIS W/REFLEX MICROSCOPIC Stat 06/19/2018 11:55 AM CDT HCG QUALITATIVE, URINE Stat 9 11:55 AM CDT documented in this encounter Results * (ABNORMAL) DNA AUTOABS DOUBLE STRANDED (06/19/2018 1:25 PM CDT) [facility] DNA AUTOABS DOUBLE STRANDED 500(H) <30.0 (Negative ) IU/mL 06/21/2018 6:46 PM CDT [facility] Comment: Interpretation: Positive (>75.0) dsDNA Ab by [facility] IFA, IgG is available, if clinically indicated. Call [facility] Inquiry within 14 days to add [facility] IFA to stored sample. Test Performed by: [facility] [address] [place] [address] Blood Venipuncture / Unknown 06/19/2018 1:25 PM CDT 06/19/2018 1:34 PM CDT Chin Zhang MD CHEMISTRY ORDERABLES Performing Organization Address City/[facility]/ZIP Co de Phone Number [facility] * (ABNORMAL) CK (06/19/2018 12:23 PM CDT) Pathologist [facility] CK 19(L) 20 - 180 U/L 06/19/2018 1:31 PM CDT [facility] [employer] [facility] Blood Venipuncture / Unknown 06/19/2018 12:23 PM CDT 06/19/2018 12:30 PM CDT Chin Zhang MD CHEMISTRY ORDERABLES [facility] CLIA# [id number] [address] [place] [address] * COMPLEMENT C3/C4 PANEL (06/19/2018 12:23 PM CDT) COMPLEMENT C3 95 90 - 180 mg/dL 06/19/2018 3:57 PM CDT [facility] COMPLEMENT C4 10 10 - 40 mg/dL 06/19/2018 3:57 PM CDT [facility] Blood Venipuncture / Unknown 06/19/2018 12:23 PM CDT 06/19/2018 12:30 PM CDT Chin Zhang MD CHEMISTRY ORDERABLES [facility] CLIA# [id number] [address] [place] [address] * EXTRA TUBE (SST/GOLD) (06/19/2018 12:23 PM CDT) Blood Venipuncture / Unknown 06/19/2018 12:23 PM CDT 06/19/2018 12:30 PM CDT Chin Zhang MD CHEMISTRY ORDERABLES Performing Organization Address City/[facility]/ZIP Co de Phone Number [facility] CLIA# [id number] [address] [place] [address] * EXTRA TUBE (GREEN NO GEL) (06/19/2018 12:23 PM CDT) Blood Venipuncture / Unknown 06/19/2018 12:23 PM CDT 06/19/2018 12:30 PM CDT Chin Zhang MD CHEMISTRY ORDERABLES [facility] CLIA# [id number] [address] [place] [address] * (ABNORMAL) SEDIMENTATION RATE (06/19/2018 12:23 PM CDT) ESR (SEDIMENTATION RATE) 33(H) <=20 mm/Hr 06/19/2018 1:40 PM CDT [facility] Blood Venipuncture / Unknown 06/19/2018 12:23 PM CDT 06/19/2018 12:30 PM CDT Chin Zhang MD HEMATOLOGY ORDERABLE S Performing Organization Address City/[facility]/ZIP Co de Phone Number [facility] CLIA# [id number] [address] [place] [address] * (ABNORMAL) C-REACTIVE PROTEIN (06/19/2018 12:23 PM CDT) Pathologist [facility] CRP 5.1(H) <5.0 mg/L 06/19/2018 1:31 PM CDT [facility] Blood Venipuncture / Unknown 06/19/2018 12:23 PM CDT 06/19/2018 12:30 PM CDT Chin Zhang MD CHEMISTRY ORDERABLES Performing Organization Address [facility] Co de Phone Number [facility] [employer] [facility]# [id number] [address] [place] [address] * (ABNORMAL) COMPREHENSIVE METABOLIC PANEL (06/19/2018 12:23 PM CDT) Pathologist [facility] SODIUM 136 136 - 145 mmol/L 06/19/2018 1:31 PM CDT [facility] LABORATORY SERVICES [facility] POTASSIUM 4.4 3.5 - 5.0 mmol/L 06/19/2018 1:31 PM CDT [employer] [facility]AT[facility] SERVICES - [facility] CHLORIDE 103 98 - 107 mmol/L 06/19/2018 1:31 PM CDT [facility] CO2 22 22 - 29 mmol/L 06/19/2018 1:31 PM CDT [facility] LABORATORY SERVICES - [facility] CALCIUM 9.6 8.6 - 10.2 mg/dL 06/19/2018 1:31 PM [employer] LABORATORY SERVICES - [facility] BUN 11 6 - 20 mg/dL 06/19/2018 1:31 PM [employer] [facility]AT[facility] SERVICES - [facility] CREATININE 0.55 0.51 - 0.95 mg/dL 06/19/2018 1:31 PM [employer] [facility] SERVICES - [facility] GLUCOSE 104(H) 74 - 99 mg/dL 06/19/2018 1:31 PM [employer] [facility] SERVICES - [facility] TOTAL PROTEIN 8.1 6.7 - 8.6 g/dL 06/19/2018 1:31 PM [employer] [facility] SERVICES - [facility] ALBUMIN 4.1 3.5 - 5.2 g/dL 06/19/2018 1:31 PM [employer] [facility] SERVICES - [facility] BILIRUBIN TOTAL 0.3 0.3 - 1.2 mg/dL 06/19/2018 1:31 PM [employer] LAB[facility]ATORY SERVICES - [facility] ALKALINE PHOSPHATASE 57 35 - 104 U/L 06/19/2018 1:31 PM [employer] [facility] SERVICES - [facility] AST 15 <33 U/L 06/19/2018 1:31 PM [employer] [facility]ORY SERVICES - [facility] ALT 12 <34 U/L 06/19/2018 1:31 PM [employer] LABORATORY SERVICES - . [facility] GFR >60 >=60 mL/min/1.7 3 sq meter 06/19/2018 1:31 PM [employer] [facility] SERVICES - [facility] Comment: eGFR has not been [...] GFR, >60 >=60 mL/min/1.7 3 sq meter 06/19/2018 1:31 PM [employer] LABORATORY SERVICES - . [facility] ANION GAP 11 8 - 16 mmol/L 06/19/2018 1:31 PM CDT [facility] Blood Venipuncture / Unknown 06/19/2018 12:23 PM CDT 06/19/2018 12:30 PM CDT Narrative [facility] - 06/19/2018 1:31 PM CDT Samples containing indocyanine green cause interferences on Total and/or Direct Bilirubin and must not be measured. Chin Zhang MD CHEMISTRY ORDERABLES [facility] CLIA# [id number] [address] [facility] [address] [address] * (ABNORMAL) CBC WITH DIFFERENTIAL (06/19/2018 12:23 PM CDT) WBC 8.9 4.0 - 9.8 K/uL 06/19/2018 1:02 PM [facility] RBC 4.56 3.90 - 4.90 M/uL 06/19/2018 1:02 PM [facility] LABORATORY [facility] HEMOGLOBIN 10.1(L) 11.8 - 14.8 g/dL 06/19/2018 1:02 PM [facility] LABORATORY [facility] HEMATOCRIT 34.8(L) 35.5 - 44.0 % 06/19/2018 1:02 PM [facility] [employer] [facility] MCV 76.3(L) 82.0 - 99.0 fL 06/19/2018 1:02 PM [facility] MCH 22.1(L) 27.2 - 32.6 pg 06/19/2018 1:02 PM [facility] [employer] [facility] MCHC 29.0(L) 31.5 - 35.5 g/dL 06/19/2018 1:02 PM [facility] [employer] [facility] RDW 18.2(H) 11.5 - 14.5 % 06/19/2018 1:02 PM [facility] [employer] [facility] RDW-STDEV 49.8(H) 37.1 - 48.7 fL 06/19/2018 1:02 PM [facility] [employer] [facility] PLATELETS 407(H) 140 - 350 K/uL 06/19/2018 1:02 PM CDT [employer] LABORATORY SERVICES - [facility] MPV 10.1 9.3 - 12.4 fL 06/19/2018 1:02 PM CDT [employer] [facility] SERVICES - [facility] NEUTROPHILS 92 % 06/19/2018 1:02 PM CDT [employer] LAB[facility] SERVICES - . [facility] LYMPHOCYTES 5 % 06/19/2018 1:02 PM CDT [employer] [facility]AT[facility] SERVICES - . [facility] MONOCYTES 2 % 06/19/2018 1:02 PM CDT [employer] [facility] - [facility] [place] EOSINOPHILS 0 % 06/19/2018 1:02 PM CDT [employer] [facility] - [facility] [place] BASOPHILS 0 % 06/19/2018 1:02 PM CDT [employer] [facility] SERVICES - . [facility] IMMATURE GRANULOCYTES 0 % 06/19/2018 1:02 PM CDT [employer] [facility] - [facility] NEUTROPHIL ABSOLUTE 8.20(H) 1.90 - 7.00 K/uL 06/19/2018 1:02 PM CDT [employer] [facility] - [facility] LYMPHOCYTE ABSOLUTE 0.48(L) 0.70 - 4.50 K/uL 06/19/2018 1:02 PM CDT [employer] LABORATORY SERVICES - . [facility] MONOCYTE ABSOLUTE 0.16 0.10 - 1.30 K/uL 06/19/2018 1:02 PM CDT [employer] [facility] SERVICES - . [facility] EOSINOPHIL ABSOLUTE 0.01 0.00 - 0.70 K/uL 06/19/2018 1:02 PM CDT [employer] [facility]AT[facility] SERVICES - . [facility] BASOPHILS ABSOLUTE 0.01 0.00 - 0.20 K/uL 06/19/2018 1:02 PM CDT [employer] [facility] SERVICES - . [facility] IMMATURE GRANULOCYTES ABSOLUTE 0.03 0.00 - 0.03 K/uL 06/19/2018 1:02 PM CDT [employer] [facility] - [facility] Blood Venipuncture / Unknown 06/19/2018 12:23 PM CDT 06/19/2018 12:30 PM CDT Chin Zhang MD HEMATOLOGY ORDERABLE S [facility] LABORATORY SERVICES [facility] CLIA# [id number] [address] [place] [address] * (ABNORMAL) HCG QUALITATIVE, URINE (06/19/2018 11:55 AM CDT) HCG QUAL URINE Negative Negative 06/19/2018 12:44 PM CDT [employer] [facility] - [facility] COLOR UA Pale Yellow Pale to Dark Yellow 06/19/2018 12:44 PM CDT [facility] LABORATORY SERVICES - [facility] CLARITY UA Slightly Cloudy(A) Clear 06/19/2018 12:44 PM CDT [employer] LABORATORY SERVICES [facility] Urine URINE SPECIMEN OBTAINED BY CLEAN CATCH PROCEDURE / Unknown Collection / Unknown 06/19/2018 11:55 AM CDT 06/19/2018 12:02 PM CDT Chin Zhang MD URINE ORDERABLES [facility] [employer] SERVICES [facility] CLIA# [id number] [address] [address] * (ABNORMAL) URINALYSIS WITH REFLEX MICROSCOPIC (06/19/2018 11:55 AM CDT) COLOR UA Pale Yellow Pale to Dark Yellow 06/19/2018 12:26 PM CDT [employer] [facility] - [facility] CLARITY UA Slightly Cloudy(A) Clear 06/19/2018 12:26 PM CDT [employer] [facility] - [facility] SPECIFIC GRAVITY UA 1.014 1.003 - 1.035 06/19/2018 12:26 PM CDT [employer] [facility] - [facility] PH UA 7.0 5.0 - 8.0 06/19/2018 12:26 PM CDT [employer] [facility] SERVICES - . [facility] LEUKOCYTE ESTERASE UA Negative Negative 06/19/2018 12:26 PM CDT [employer] [facility] SERVICES - . [facility] NITRITE UA Negative Negative 06/19/2018 12:26 PM CDT [employer] [facility] - [facility] PROTEIN UA Negative Negative 06/19/2018 12:26 PM CDT [employer] LABORATORY SERVICES - . [facility] GLUCOSE UA Negative Negative 06/19/2018 12:26 PM CDT [facility] LABORATORY SERVICES - . [facility] [place] UA Negative Negative 06/19/2018 12:26 PM CDT [facility] SERVICES - [facility] UROBILINOGEN UA Normal <2.0 mg/dL 9 12:26 PM CDT [facility] LABORATORY SERVICES - [facility] BILIRUBIN UA Negative Negative 06/19/2018 12:26 PM CDT [facility] BLOOD UA Negative Negative 06/19/2018 12:26 PM CDT [facility] WBC UA 0-2 0 - 2 /hpf 06/19/2018 12:26 PM CDT [facility] RBC UA 0-2 0 - 2 /hpf 06/19/2018 12:26 PM CDT [facility] LABORATORY [facility] BACTERIA UA Negative Negative /hpf 06/19/2018 12:26 PM T [facility] EPITHELIAL CELLS, URINE 11-25(A) 0 - 5 /hpf 06/19/2018 12:26 PM CDT [facility] Urine URINE SPECIMEN OBTAINED BY CLEAN CATCH PROCEDURE / Unknown Collection / Unknown 06/19/2018 11:55 AM CDT 06/19/2018 12:02 PM CDT Chin Zhang MD URINE ORDERABLES [facility]# [id number] [address] [facility] [place] [address] documented in this encounter Visit Diagnoses Diagnosis Arthralgia, unspecified joint- Primary Systemic lupus erythematosus, unspecified SLE type, unspecified organ involvement status documented in this encounter Administered Medications Inactive Administered Medications - up to 3 most recent administrations Medication Order MAR Action Action Date Dose Rate Site HYDROcodone-acetaminophen (NORCO) 5-325 mg per tablet 1 Tablet 1 Tablet, Oral, ONE TIME ONLY, 1 dose, On Sun06/19/18 at 1345, Routine Given 06/19/2018 1:41 PM CDT 1 Tablet documented in this encounter Active and Recently Administered Medications Times are shown in CDT. Scheduled Medication Order 06/17/2018 06/18/2018 06/19/2018 HYDROcodone-acetaminophen (NORCO) 5-325 mg per tablet 1 Tablet (COMPLETED) 1 Tablet, Oral, ONE TIME ONLY, 1 dose, On Sun06/19/18 at 1345, Routine 1341 (Given - Provid er: Minal De La O RN) documented in this encounter Care Teams Company Marker Relationship Specialty Start Date End Date Huseyin Dangelo MD PCP - General 09/29/17 07/14/19 documented as of this encounter
--- OUTSIDE RECORDS SUMMARY | 2024-02-24 20:39 | XMS_ITS | Encounter Summary ---
Author Organization [facility] Address [address] [place] [address] Care Team Providers Care Planer Mill Grader Name Role Phone Huseyin Dangelo MD Primary Care Provider [phone] Reason for Visit * Reason Comments [facility] Encounter Details Date Type Department Care Team (Latest Contact Info) Description 11/27/2017 7:10 PM CDT - 11/27/2017 7:47 PM CDT Hospital Encounter [facility] [address] [facility] [address] [place] [address] Acute bacterial conjunctivitis of both eyes (Primary Dx) Discharge Disposition: Home or Self Care Social History Tobacco Use Types Packs/Day Years Used Date Smoking Tobacco: Never Sex and Gender Information Value Date Recorded Sex Assigned at Not on file Gender Identity Not on file Sexual Orientation Not on file documented as of this encounter Last Filed Vital Signs Vital Sign Reading Time Taken Comments Blood Pressure 147/72 11/27/2017 7:34 PM CDT Pulse 102 11/27/2017 7:34 PM CDT Temperature 36.8 ??C (98.3 ??F) 11/27/2017 7:34 PM CD T Respiratory Rate 16 11/27/2017 7:34 PM CDT Oxygen Saturation 100% 11/27/2017 7:34 PM CDT Inhaled Oxygen Concentration - - Weight 63.5 kg (140 lb) 11/27/2017 7:34 PM CDT Height 160 cm (5' 3 ) 11/27/2017 7:34 PM CDT Body Mass Index 24.8 11/27/2017 7:34 PM CDT documented in this encounter Discharge Instructions * Discharge Instructions* Hattie Villatoro PA-C - 11/27/2017 7:47 PM CDT Continue therapy, clean shared surfaces and linens/bedding again after 48 hours of treatment documented in this encounter Medications at Time of Discharge Medication Sig Dispensed Refills Start Date End Date medroxyPROGESTERone (PROVERA) 10 mg tablet Take 10 mg by mouth daily. 04/13/2018 valACYclovir (VALTREX) 1 gram tablet Take 1,000 mg by mouth 2 times daily. 04/27/2020 tobramycin (TOBREX) 0.3 % solution 1 Drop every 4 hours. 04/13/2018 documented as of this encounter Nursing Notes * Tanika Cabral RN - 11/27/2017 7:37 PM CDT C/o pink eye x 4 days -denies inj documented in this encounter ED Notes * Hattie Villatoro PA-C - 11/27/2017 7:10 PM CDT Patient information was obtained from patient. History/Exam limitations: none. History of Present Illness Carito Rausch is a 27 y.o. female. presents for evaluation of bilateral eye irritation. She reports being seen at [facility] yesterday and started on Tobramycin drops for pink eye. I don't evenknow why I'm here, but she wanted to ensure this is what is going on. Past Medical History: Diagnosis Date ??? Patient denies relevant medical history Past Surgical History: Procedure Laterality Date ??? HX APPENDECTOMY Social History Substance Use Topics ??? Smoking status: Never Smoker ??? Smokeless tobacco: Not on file ??? Alcohol use Not on file No family history on file. Discharge Medication List as of 11/27/2017 7:47 PM CONTINUE these medications which have NOT CHANGED Details medroxyPROGESTERone (PROVERA) 10 mg tablet Take 10 mg by mouth daily. valACYclovir (VALTREX) 1 gram tablet Take 1,000 mg by mouth 2 times daily. tobramycin (TOBREX) 0.3 % solution 1 Drop every 4 hours. No Known Allergies Review of Systems Constitutional: Negative for fever. HENT: Negative for rhinorrhea and sinus pressure. Eyes: Positive for discharge and redness. Physical Exam BP (!) 147/72 Pulse (!) 102 Temp 98.3 ??F (36.8 ??C) Resp 16 Ht 5' 3 (1.6 m) Wt 63.5 kg(140 lb) LMP (LMP Unknown) SpO2 100% ? No BMI 24.80 kg/m?? Gen: WNL Eyelid: WNL Eye PERRL/EOMs intact Conjunctiva 3+ on left, 2+ on right with yellow exudate Assessment and Plan ICD-10-CM ICD-9-CM 1. Acute bacterial conjunctivitis of both eyes H10.33 372.03 Plan: See discharge instructions, continue tx Associated attestation - Rosa Elena Davis MD - 11/28/2017 8:19 AM CDT I, Rosa Elena Davis MD, attest that I have reviewed the Advanced Practitioner's note - including the history, documented findings, assessment, and plan' documented in this encounter Plan of Treatment Not on file documented as of this encounter Visit Diagnoses Diagnosis Acute bacterial conjunctivitis of both eyes- Primary documented in this encounter Care Teams Planer Mill Grader Relationship Specialty Start Date End Date Huseyin Dangelo MD PCP - General 09/29/17 07/14/19 documented as of this encounter
--- OUTSIDE RECORDS SUMMARY | 2024-02-24 20:39 | XMS_ITS | Encounter Summary ---
Author Organization [facility] Address [address] [place] [address] Care Team Providers Care Buff Wheel Fabricator Name Role Phone Brian Mon MD Primary Care Provider Encounter Details Date Type Department Care Team (Late st Contact Info) Description 06/06/2004 Outpatient Historical [facility] [address] [place] [phone] [place] [address] [facility] [place] [address] Social History Tobacco Use Types [...] documented as of this encounter Care Teams Buff Wheel Fabricator Relationship Specialty Start Date End Date Brian Mon MD [address] [place] [address] PCP - General Internal Medicine 07/15/19 documented as of this encounter
--- OUTSIDE RECORDS SUMMARY | 2024-02-24 20:39 | XMS_ITS | Encounter Summary ---
Author Organization [facility] Address [address] [place] [address] Care Team Providers Care Seam Rubbing Machine Operator Name Role Phone Huseyin Dangelo MD Primary Care Provider [phone] Reason for Visit * Reason Comments Chest Pain Generalized Body Aches Encounter Details Date Type Department Care Team (Late st Contact Info) Description 03/28/2018 9:05 PM CAMP PROGRAM DIRECTOR - 03/28/2018 10:41 PM CAMP PROGRAM DIRECTOR Emergency [facility] Emergency Department [address] [place] [address] Chronic pain syndrome (Primary Dx); Anemia, unspecified type Discharge Disposition: Home or Self Care Social [...] Sign Reading Time Taken Comments Blood Pressure 129/84 03/28/2018 10:34 PM CAMP PROGRAM DIRECTOR Pulse 99 03/28/2018 10:34 PM CAMP PROGRAM DIRECTOR Temperature 37.3 ??C (99.1 ??F) 03/28/2018 8:56 PM CS T Respiratory Rate 17 03/28/2018 10:34 PM CAMP PROGRAM DIRECTOR Oxygen Saturation 99% 03/28/2018 10:34 PM CAMP PROGRAM DIRECTOR Inhaled Oxygen Concentration - - Weight 63.5 kg (140 lb) 03/28/2018 8:56 PM CAMP PROGRAM DIRECTOR Height 157.5 cm (5' 2 ) 03/28/2018 8:56 PM CAMP PROGRAM DIRECTOR Body Mass Index 25.61 03/28/2018 8:56 PM CAMP PROGRAM DIRECTOR documented in this encounter Discharge Instructions * Discharge Instructions* Geovanna Durham FNP - 03/28/2018 10:33 PM CAMP PROGRAM DIRECTOR Follow up with your PCP and RA doctor for pain management Take meds as directed PROGRAM DIRECTOR * Attachments The following attachments cannot be sent through Care Everywhere. * Chronic Pain (Mongolian) documented in this encounter Medications at Time of Discharge Medication Sig Dispensed Refills Start Date End Date hydroxychloroquine (PLAQUENIL) 200 mg tablet Take 200 mg by mouth daily. diclofenac sodium (VOLTAREN) 75 mg Tablet, Delayed Release (E.C.) Take 1 Tablet (75 mg) by mouth 2 times daily for 10 days PRN w/ food. 20 Tablet 03/28/2018 04/07/2018 predniSONE (DELTASONE) 5 mg tablet Take 10 mg by mouth daily with breakfast . 07/12/2018 medroxyPROGESTERone (PROVERA) 10 mg tablet Take 10 mg by mouth daily. 04/13/2018 valACYclovir (VALTREX) 1 gram tablet Take 1,000 mg by mouth 2 times daily. 04/27/2020 tobramycin (TOBREX) 0.3 % solution 1 Drop every 4 hours. 03/29 documented as of this encounter ED Notes * Amanda Griffiths RN - 03/28/2018 10:39 PM CST Patient given discharge instructions and prescriptions. Verbalized understanding. Patient ambulatory out of ER at this time. PROGRAM DIRECTOR * Kristie Doyle RN - 03/28/2018 9:02 PM CST Pt reports that she has had a new dx of Lupus in the fall. States that she has been having diarrhea, gen aches and loss of appetite for several days. Reports that in the last week she has started taking Plaquenil. Reports that her generalized weakness is extreme , states that it hurts to move or stand or drive. States she has been told she was anemic as well. AxOx4. No obvious distress noted. PROGRAM DIRECTOR * Moose Chung RN - 03/28/2018 8:53 PM CST TB Screen instructions: Complete the [...] greater, initiate Airborne Isolation and contact provider. PROGRAM DIRECTOR * Geovanna Durham FNP - 03/28/2018 8:51 PM CST HISTORY OF PRESENT ILLNESS Carito Rausch, a 27 y.o. female presents to the ED with a Chief Complaint of Chest Pain and Generalized Body Aches Subjective A 27 y/o female is here with generalized body aches and pains for past few months. Pt states recently got diagnosed with connective tissue disorder, fibromyalgia, lupus, per her RA doctor. Pt reportsevery joint is giving her pain. Currently she is on prednisone, hydroxyzine per RA doctor. No feveror chills. No injury or trauma. REVIEW OF SYSTEMS Review of Systems Musculoskeletal: Positive for arthralgias and myalgias. All other systems reviewed and are negative. PAST MEDICAL HISTORY REVIEWED MEDICAL: Patient has a past medical history of Connective tissue disease; Fibromyalgia; Lupus; and Patient denies relevant medical history. SURGICAL: Patient [...] MG TABLET HYDROXYCHLOROQUINE (PLAQUENIL) 200 MG TABLET MEDROXYPROGESTERONE (PROVERA) 10 MG TABLET ONDANSETRON (ZOFRAN) 4 MG TABLET PREDNISONE (DELTASONE) 5 MG TABLET TOBRAMYCIN (TOBREX) 0.3 % SOLUTION VALACYCLOVIR (VALTREX) 1 GRAM TABLET Medications Modified during this Encounter Medications Discontinued during this Encounter Objective PHYSICAL EXAM INITIAL VS BP: 127/79 (03/28/182055), Heart Rate: 116 bpm (03/28/182055), Resp: 18 (03/28/182055), Pulse: (not recorded), Temp: 99.1 ??F (37.3 ??C) (03/28/182055), Temp src: Oral (03/28/182055), SpO2: 100 % (03/28/182055), Height: 5' 2 (157.5 cm) (03/28/182055), Weight: 63.5 kg (140 lb) (03/28/182055), BMI (Calculated): 25.6 (03/28/182055) No LMP recorded. Physical Exam Constitutional: She is oriented to person, place, and time. She appears well- developed and well-nourished. HENT: Head: Normocephalic. Nose: Nose normal. Eyes: Pupils are equal, round, and reactive to light. Conjunctivae and EOM are normal. Neck: Normal range of motion. Neck supple. Cardiovascular: Normal rate and regular rhythm. Pulmonary/Chest: Effort normal and breath sounds normal. Abdominal: Soft. Bowel sounds are normal. She exhibits no distension. There is no tenderness. Musculoskeletal: Normal range of motion. Has ROM to upper /lower extremities Neurological: She is alert and oriented to person, place, and time. Skin: Skin is warm and dry. Capillary refill takes less than 2 seconds. Nursing note and vitals reviewed. DIAGNOSTICS LAB: CBC WITH DIFFERENTIAL - Abnormal Result Value WBC 12.4 (*) RBC 4.11 HEMOGLOBIN 9.2 (*) HEMATOCRIT 29.2 (*) MCV 71.1 (*) MCH 22.3 (*) MCHC 31.4 (*) RDW 18.2 (*) PLATELETS 456 (*) MPV 7.5 (*) NEUTROPHILS 91 (*) LYMPHOCYTES 5 (*) MONOCYTES 3 EOSINOPHILS 1 BASOPHILS 0 IMMATURE GRANULOCYTES 0 NEUTROPHIL ABSOLUTE 11.20 (*) LYMPHOCYTE ABSOLUTE 0.60 MONOCYTE ABSOLUTE 0.40 EOSINOPHIL ABSOLUTE 0.10 BASOPHILS ABSOLUTE 0.10 IMMATURE GRANULOCYTES ABSOLUTE 0.00 COMPREHENSIVE METABOLIC PANEL - Abnormal SODIUM 137 POTASSIUM 4.1 CHLORIDE 100 CO2 21 (*) CALCIUM 9.3 BUN 12 CREATININE 0.70 GLUCOSE 122 (*) TOTAL PROTEIN 7.3 ALBUMIN 3.7 BILIRUBIN TOTAL <0.2 (*) ALKALINE PHOSPHATASE 50 AST 19 ALT 19 GFR >60 GFR, >60 ANION GAP 16 SEDIMENTATION RATE - Abnormal ESR (SEDIMENTATION RATE) 29 (*) URINALYSIS WITH REFLEX CULTURE - Normal COLOR UA Pale Yellow CLARITY UA Clear SPECIFIC GRAVITY UA 1.006 PH UA 7.0 LEUKOCYTE ESTERASE UA Negative NITRITE UA Negative PROTEIN UA Negative GLUCOSE UA Negative KETONES UA Negative UROBILINOGEN UA Normal BILIRUBIN UA Negative BLOOD UA Negative Ascorbic Acid UA Negative HCG QUALITATIVE, URINE - Normal HCG QUAL URINE Negative COLOR UA Pale Yellow CLARITY UA Clear C-REACTIVE PROTEIN - Normal CRP 4.9 RADIOLOGY: No orders to display No orders to display EKG: PROCEDURES Procedures MEDICAL DECISION MAKING AND PLAN OF CARE mildly tachycardic - ?due to steroid therapy per her RA doctor CBC: elevated wbc (12.4) - likely due to steroid therapy Mildly anemic - pt aware of known hx of anemia UA: normal CMP: unremarkable Given pt's hx of connective tissue disorder, fibromyalgia, and lupus, pt's pain likely from her diagnosis. Advised pt to continue with meds as directed by her doctor. Will provide NSAID for on-going arthralgia. F/u with RA and PCP for sx management. Pt discharged with instructions and medications. Pt is amenable to plan, expresses understanding, and all questions were answered. I also discussed return precautions with them and the importance of appropriate follow up care. Discharge instruction using teach back, understanding assessed and validated MDM DDX: on-going autoimmune disorder (lupus), fibromyalgia, drug seeking behavior, malingering, viral illness, other Plan: labs, sx control, imaging Management: Management options include but not limited to: IV access and IV medications given. Data Reviewed: All current, pertinent and timely studies (laboratory, imaging, and procedure(s)) were ordered and results reviewed by this ICE CREAM MACHINE OPERATOR unless otherwise noted Triage notes and available nursing notes reviewed. Previous medical record reviewed when available.Repeat vital signs reviewed. ER return precaution discussed. Dispo: D/C home, NSAID, f/u with RA / PCP doctors Medications Administered During the ED Stay from 03/28/20182050 to 03/28/20182236 Date/Time Order Dose Route Action 03/28/20182132 sodium chloride 0.9% bolus solution 1,000 mL 1,000 mL IV New Bag 03/28/20182132 ketorolac (TORADOL) injection 15 mg 15 mg IV Given . New Prescriptions for this Encounter DICLOFENAC SODIUM (VOLTAREN) 75 MG TABLET, DELAYED RELEASE (E.C.) Take 1 Tablet (75 mg) by mouth 2 times daily for 10 days PRN w/ food. LAST VS BP: 127/79 (03/28/182055), Heart Rate: 116 bpm (03/28/182055), Resp: 18 (03/28/182055), Pulse: (not recorded), Temp: 99.1 ??F (37.3 ??C) (03/28/182055), Temp src: Oral (03/28/182055), SpO2: 100 % (03/28/182055) CLINICAL IMPRESSION Final diagnoses: [G89.4] Chronic pain syndrome (Primary) [D64.9] Anemia, unspecified type DISPOSITION, EDUCATION AND MEDICATION RECONCILIATION Medications reconciled. See after visit summary for patient education on discharged patients. ATTESTATION STATEMENTS PROGRAM DIRECTOR documented in this encounter Plan of Treatment Not on file documented as of this encounter Procedures Procedure Name Priority Date/Time Associated Diagnosis Comments URINALYSIS WITH REFLEX CULTURE Stat 03/28/2018 10:08 PM CAMP PROGRAM DIRECTOR HCG QUALITATIVE, URINE Stat 9 10:08 PM CAMP PROGRAM DIRECTOR CBC WITH DIFFERENTIAL Stat 03/28/2018 9:30 PM CAMP PROGRAM DIRECTOR SEDIMENTATION RATE Stat 03/28/2018 9: 30 PM CAMP PROGRAM DIRECTOR C-REACTIVE PROTEIN Stat 03/28/2018 9: 30 PM CAMP PROGRAM DIRECTOR COMPREHENSIVE METABOLIC PANEL Stat 03/28/2018 9:30 PM CAMP PROGRAM DIRECTOR EKG 12-LEAD Stat 03/28/2018 8:57 PM CAMP PROGRAM DIRECTOR documented in this encounter Results * HCG QUALITATIVE, URINE (03/28/2018 10:08 PM CAMP PROGRAM DIRECTOR) HCG QUAL URINE Negative Negative 03/28/2018 10:24 PM CAMP PROGRAM DIRECTOR [facility] [employer] [facility] COLOR UA Pale Yellow Pale to Dark Yellow 03/28/2018 10:24 PM CAMP PROGRAM DIRECTOR [facility] [employer] [facility] CLARITY UA Clear Clear 03/28/2018 10:24 PM CAMP PROGRAM DIRECTOR [facility] [employer] [facility] Urine URINE SPECIMEN OBTAINED BY CLEAN CATCH PROCEDURE / Unknown Collection / Unknown 03/28/2018 10:08 PM CAMP PROGRAM DIRECTOR 03/28/2018 10:18 PM CAMP PROGRAM DIRECTOR Geovanna Durham SUPERVISOR WHEEL SHOP URINE ORDERABLE S [facility] [employer] [facility] CLIA# [id number] [place] [address] * URINALYSIS WITH REFLEX CULTURE (03/28/2018 10:08 PM CAMP PROGRAM DIRECTOR) COLOR UA Pale Yellow Pale to Dark Yellow 03/28/2018 10:23 PM CAMP PROGRAM DIRECTOR [facility] [employer] [facility] CLARITY UA Clear Clear 03/28/2018 10:23 PM CAMP PROGRAM DIRECTOR [facility] [employer] [facility] SPECIFIC GRAVITY UA 1.006 1.003 - 1.035 03/28/2018 10:23 PM CAMP PROGRAM DIRECTOR [facility] LABORATORY [facility] PH UA 7.0 5.0 - 8.0 03/28/2018 10:23 PM CAMP PROGRAM DIRECTOR [facility] LABORATORY [facility] LEUKOCYTE ESTERASE UA Negative Negative 03/28/2018 10:23 PM CAMP PROGRAM DIRECTOR [facility] LABORATORY [facility] NITRITE UA Negative Negative 03/28/2018 10:23 PM [facility]ORAT[facility] PROTEIN UA Negative Negative 03/28/2018 10:23 PM CAMP PROGRAM DIRECTOR [facility] LABORATORY [facility] GLUCOSE UA Negative Negative 03/28/2018 10:23 PM CAMP PROGRAM DIRECTOR [facility] LABORATORY [facility] KETONES UA Negative Negative 03/28/2018 10:23 PM CAMP PROGRAM DIRECTOR [facility] LABORATORY [facility] UROBILINOGEN UA Normal <2.0 mg/dL 9 10:23 PM CAMP PROGRAM DIRECTOR [facility] LABORATORY [facility] BILIRUBIN UA Negative Negative 03/28/2018 10:23 PM CAMP PROGRAM DIRECTOR [facility] LABORATORY [facility] BLOOD UA Negative Negative 03/28/2018 10:23 PM CAMP PROGRAM DIRECTOR [facility] LABORATORY [facility] Ascorbic Acid UA Negative Negative 03/28/19 19 10:23 PM CAMP PROGRAM DIRECTOR [facility] LABORATORY [facility] Urine URINE SPECIMEN OBTAINED BY CLEAN CATCH PROCEDURE / Unknown Collection / Unknown 03/28/2018 10:08 PM CAMP PROGRAM DIRECTOR 03/28/2018 10:18 PM CAMP PROGRAM DIRECTOR Geovanna Durham SUPERVISOR WHEEL SHOP URINE ORDERABLE S [facility] CLIA# [id number] [place] [address] * C-REACTIVE PROTEIN (03/28/2018 9:30 PM CAMP PROGRAM DIRECTOR) CRP 4.9 <5.0 mg/L 03/28/2018 10:07 PM CAMP PROGRAM DIRECTOR [facility] LABORATORY [facility] Blood Venipuncture / Unknown 03/28/2018 9:30 PM CAMP PROGRAM DIRECTOR 03/28/2018 9:41 PM CAMP PROGRAM DIRECTOR Geovanna Durham SUPERVISOR WHEEL SHOP CHEMISTRY [facility] [id number] [place] [address] * (ABNORMAL) SEDIMENTATION RATE (03/28/2018 9:30 PM CAMP PROGRAM DIRECTOR) [facility] ESR (SEDIMENTATION RATE) 29(H) 0 - 20 mm/Hr 03/28/2018 9:54 PM CAMP PROGRAM DIRECTOR [facility] Blood Venipuncture / Unknown 03/28/2018 9:30 PM CAMP PROGRAM DIRECTOR 03/28/2018 9:36 PM CAMP PROGRAM DIRECTOR Geovanna Durham SUPERVISOR WHEEL SHOP HEMATOLOGY ORDE [facility]# [id number] [place] [address] * (ABNORMAL) COMPREHENSIVE METABOLIC PANEL (03/28/2018 9:30 PM CAMP PROGRAM DIRECTOR) [facility] SODIUM 137 136 - 145 mmol/L 03/28/2018 10:07 PM [facility] LABORATORY [facility] POTASSIUM 4.1 3.4 - 5.1 mmol/L 03/28/2018 10:07 PM [facility] LABORATORY [facility] CHLORIDE 100 98 - 107 mmol/L 03/28/2018 10:07 PM [facility] LABORATORY [facility] CO2 21(L) 22 - 29 mmol/L 03/28/2018 10:07 PM [facility] LABORATORY [facility] CALCIUM 9.3 8.6 - 10.4 mg/dL 03/28/2018 10:07 PM [facility] LABORATORY [facility] BUN 12 6 - 20 mg/dL 03/28/2018 10:07 PM [facility] LABORATORY [facility] CREATININE 0.70 0.50 - 1.00 mg/dL 03/28/2018 10:07 PM [facility] LABORATORY [facility] GLUCOSE 122(H) 74 - 99 mg/dL 03/28/2018 10:07 PM [facility] LABORATORY [facility] TOTAL PROTEIN 7.3 6.3 - 8.7 g/dL 03/28/2018 10:07 PM [facility] [employer] [facility] ALBUMIN 3.7 3.5 - 5.2 g/dL 03/28/2018 10:07 PM [facility] BILIRUBIN TOTAL <0.2(L) 0.2 - 1.3 mg/dL 03/28/2018 10:07 PM [facility] ALKALINE PHOSPHATASE 50 40 - 150 U/L 03/28/2018 10:07 PM [facility] AST 19 0 - 33 U/L 03/28/2018 10:07 PM [facility] ALT 19 0 - 33 U/L 03/28/2018 10:07 PM [facility] GFR >60 >=60 mL/min/1.7 3 sq meter 03/28/2018 10:07 PM [facility] Comment: eGFR has not [...] GFR, >60 >=60 mL/min/1.7 3 sq meter 03/28/2018 10:07 PM [facility] ANION GAP 16 8 - 16 mmol/L 03/28/2018 10:07 PM [facility] Blood Venipuncture / Unknown 03/28/2018 9:30 PM CAMP PROGRAM DIRECTOR 03/28/2018 9:41 PM CAMP PROGRAM DIRECTOR Geovanna Durham SUPERVISOR WHEEL SHOP CHEMISTRY ORDER ANAHI [facility] CLIA# [id number] [place] [address] * (ABNORMAL) CBC WITH DIFFERENTIAL (03/28/2018 9:30 PM CAMP PROGRAM DIRECTOR) WBC 12.4(H) 4.5 - 10.5 K/uL 03/28/2018 9:43 PM [facility] RBC 4.11 3.90 - 4.90 M/uL 03/28/2018 9:43 PM [facility] HEMOGLOBIN 9.2(L) 11.8 - 14.8 g/dL 03/28/2018 9:43 PM [facility] HEMATOCRIT 29.2(L) 35.5 - 44.0 % 03/28/2018 9:43 PM [facility] MCV 71.1(L) 82.0 - 99.0 fL 03/28/2018 9:43 PM [facility] MCH 22.3(L) 27.8 - 34.5 pg 03/28/2018 9:43 PM [facility] MCHC 31.4(L) 32.5 - 35.5 g/dL 03/28/2018 9:43 PM [facility] RDW 18.2(H) 11.5 - 14.5 % 03/28/2018 9:43 PM [facility] PLATELETS 456(H) 160 - 420 K/uL 03/28/2018 9:43 PM [facility] MPV 7.5(L) 8.7 - 12.7 fL 03/28/2018 9:43 PM [facility] NEUTROPHILS 91(H) 45 - 70 % 03/28/2018 9:43 PM [facility] LYMPHOCYTES 5(L) 16 - 45 % 03/28/2018 9:43 PM [facility] MONOCYTES 3 3 - 13 % 03/28/2018 9:43 PM [facility] EOSINOPHILS 1 0 - 7 % 03/28/2018 9:43 PM [facility] BASOPHILS 0 0 - 2 % 03/28/2018 9:43 PM [facility] IMMATURE GRANULOCYTES 0 0 - 5 % 03/28/2018 9:43 PM [facility] NEUTROPHIL ABSOLUTE 11.20(H) 1.90 - 7.00 K/uL 03/28/2018 9:43 PM CAMP PROGRAM DIRECTOR [facility] LABORATORY [facility] LYMPHOCYTE ABSOLUTE 0.60 K/uL 03/28/2018 9:43 PM CAMP PROGRAM DIRECTOR [facility] MONOCYTE ABSOLUTE 0.40 K/uL 03/28/2018 9:43 PM CAMP PROGRAM DIRECTOR [facility] LABORATORY [facility] EOSINOPHIL ABSOLUTE 0.10 0.00 - 0.70 K/uL 03/28/2018 9:43 PM CAMP PROGRAM DIRECTOR [facility] LABORATORY [facility] BASOPHILS ABSOLUTE 0.10 K/uL 03/28/2018 9:43 PM CAMP PROGRAM DIRECTOR [facility] LABORATORY [facility] IMMATURE GRANULOCYTES ABSOLUTE 0.00 K/uL 03/28/2018 9:43 PM CAMP PROGRAM DIRECTOR [facility] Blood Venipuncture / Unknown 03/28/2018 9:30 PM CAMP PROGRAM DIRECTOR 03/28/2018 9:36 PM CAMP PROGRAM DIRECTOR Geovanna Durham SUPERVISOR WHEEL SHOP HEMATOLOGY ORDE NICO[facility] CLIA# [id number] [place] [address] * EKG 12-LEAD (03/28/2018 8:57 PM CAMP PROGRAM DIRECTOR) VENTRICULAR RATE 105 BPM INTERFACE SYSTEM ATRIAL RATE 105 BPM INTERFAC E SYSTEM P-R INTERVAL 126 ms INTERFA CE SYSTEM QRS DURATION 74 ms INTERFA CE SYSTEM Q-T INTERVAL 332 ms INTERFA CE SYSTEM QTC CALCULATION(BEZ ET) 438 ms INTERFACE SYSTEM P AXIS 33 degrees INTERFACE SYSTEM R AXIS 37 degrees INTERFACE SYSTEM T AXIS 2 degrees INTERFACE SYSTEM RESULT Sinus tachycardia Otherwise normal ECG When compared with ECG of 17-FEB-2018 14:25, No significant change was found Confirmed by EMMA BARRON MD ([id number]) on 03/29/2018 12:06:58 AM INTERFACE SYSTEM 03/28/2018 8:57 PM CAMP PROGRAM DIRECTOR 03/29/2018 12:06 AM CAMP PROGRAM DIRECTOR Protocol [facility] Emergency ECG ORDERABLE S INTERFACE SYSTEM Refer to clinic/hospital department documented in this encounter Visit Diagnoses Diagnosis Chronic pain syndrome- Primary Anemia, unspecified type documented in this encounter Administered Medications Inactive Administered Medications - up to 3 most recent administrations Medication Order MAR Action Action Date Dose Rate Site ketorolac (TORADOL) injection 15 mg 15 mg, IV, ONE TIME ONLY, 1 dose, On Rachel 03/28/18 at 2130, Stat Given 03/28/2018 9:33 PM CAMP PROGRAM DIRECTOR 15 mg ketorolac (TORADOL) injection 15 mg 15 mg, IV, ONE TIME ONLY, 1 dose, On Rachel 03/28/18 at 2245, Stat sodium chloride 0.9% bolus solution 1,000 mL 1,000 mL, IV, ONE TIME ONLY, 1 dose, On Rachel 03/28/18 at 2130, at 2,000 mL/hr, Administer over 30 Minutes, Stat New Bag 03/28/2018 9:33 PM CAMP PROGRAM DIRECTOR 1,000 mL 2000 mL/hr documented in this encounter Active and Recently Administered Medications Times are shown in CAMP PROGRAM DIRECTOR. Scheduled Medication Order 03/26/2018 03/27/2018 03/28/2018 ketorolac (TORADOL) injection 15 mg (COMPLETED) 15 mg, IV, ONE TIME ONLY, 1 dose, On Rachel 03/28/18 at 2130, Stat 2133 (Given - Provid er: Amanda Griffiths RN) ketorolac (TORADOL) injection 15 mg 15 mg, IV, ONE TIME ONLY, 1 dose, On Rachel 03/28/18 at 2245, Stat sodium chloride 0.9% bolus solution 1,000 mL (COMPLETED) 1,000 mL, IV, ONE TIME ONLY, 1 dose, On Rachel 03/28/18 at 2130, at 2,000 mL/hr, Administer over 30 Minutes, Stat 2133 (New Bag - Prov ider: Amanda Griffiths RN)2240 (Stopped - Provider: Amanda Griffiths RN) documented in this encounter Care Teams Seam Rubbing Machine Operator Relationship Specialty Start Date End Date Huseyin Dangelo MD PCP - General 09/29/17 07/14/19 documented as of this encounter
--- OUTSIDE RECORDS SUMMARY | 2024-02-24 20:39 | XMS_ITS | Encounter Summary ---
Author Organization [facility] Address [address] [place] [address] Care Team Providers Care Ferry Pilot Name Role Phone Brian Mon MD Primary Care Provider Encounter Details Date Type Department Care Team (Late st Contact Info) Description 06/30/2004 Outpatient [facility] [address] [place] [phone] Hanh Benavidez Social History Tobacco Use [...] documented as of this encounter Care Teams Ferry Pilot Relationship Specialty Start Date End Date Brian Mon MD [address] [place] [phone] (work) PCP - General Internal Medicine 07/15/19 documented as of this encounter
--- OUTSIDE RECORDS SUMMARY | 2024-02-24 20:39 | XMS_ITS | Encounter Summary ---
Author Organization [facility] Address [address] [place] [address] Care Team Providers Care Carpenter Helper Maintenance Name Role Phone Huseyin Dangelo MD Primary Care Provider [phone] Reason for Visit * Auth/Cert Specialty Diagnoses / Procedures Referred By Jud freeman Referred To Contact Emergency Medicine [facility] Emergency Department [address] [place] [address] Referral ID Status Reason Start Date Expiration Date Visits Re quested Visits Authorized [id number] 1 1 Encounter Details Date Type Department Care Team (Late st Contact Info) Description 07/09/2018 9:43 PM CDT - 07/10/2018 1:13 AM CDT Emergency [facility] Emergency Department [address] [place] [address] Musculoskeletal pain (Primary Dx); History of lupus; Anemia, unspecified type Discharge Disposition: Home or [...] Sign Reading Time Taken Comments Blood Pressure 113/71 07/10/2018 1:05 AM CDT Pulse - - Temperature 37.4 ??C (99.3 ??F) 07/09/2018 8:09 PM CD T Respiratory Rate 18 07/10/2018 1:05 AM CDT Oxygen Saturation 100% 07/10/2018 1:05 AM CDT Inhaled Oxygen Concentration - - Weight - - Height - - Body Mass Index - - documented in this encounter Discharge Instructions * Attachments The following attachments cannot be sent through Care Everywhere. * Musculoskeletal Pain (Malay) * Lupus (Malay) documented in this encounter Medications at Time [...] as of this encounter ED Notes * Alissa Lowe RN - 07/10/2018 1:12 AM CDT Pt discharged by provider. * Emmy Fish RN - 07/09/2018 7:59 PM CDT TB Screen instructions: Complete the [...] initiate Airborne Isolation and contact provider. * Geovanna Durham FNP - 07/09/2018 7:58 PM CDT HISTORY OF PRESENT ILLNESS Carito Rausch, a 28 y.o. female presents to the ED with a Chief Complaint of No chief complaint on file. Subjective CC: No chief complaint on file. ?? Provider in Triage HPI: Carito Rausch is a 28 y.o. female who presents to ED w/ multiple c/o left sided neck pain, sore throat, back and hip pain. sxs started today. Tried diclofenc for pain with minimal improvement, recently got off prednisone 2 days ago after taking it for a year for her lupus. No fever or chills. REVIEW OF SYSTEMS Review of Systems Musculoskeletal: Positive for arthralgias. Multiple joint pain All other systems reviewed and are negative. [...] HOME MEDICATIONS Discharge Medication List as of 07/10/2018 12:57 AM START taking these medications Details cyclobenzaprine (FLEXERIL) 10 mg tablet Take 1 Tablet (10 mg) by mouth 2 times daily as needed for Pain., Disp-20 Tablet, R-0 CONTINUE these medications which have NOT CHANGED Details ondansetron (ZOFRAN ODT) 8 mg Tablet, Rapid Dissolve Dissolve 1 tablet on top of tongue then swallow with saliva every 8 hours as needed for nausea or vomiting., Disp-10 Tablet, R-0 predniSONE (DELTASONE) 5 mg tablet Take 10 [...] daily. Objective PHYSICAL EXAM INITIAL VS BP: 127/70 (07/09/182011), Heart Rate: 119 bpm (07/09/182008), Resp: 18 (07/09/182008), Pulse: (not recorded), Temp: 99.3 ??F (37.4 ??C) (07/09/182008), Temp src: (not recorded), SpO2: 100 % (07/09/182008), Height: (not recorded), Weight: (not recorded), BMI [...] no tenderness. Musculoskeletal: Normal range of motion. Neurological: She is alert and oriented to person, place, and time. Skin: Skin is warm and dry. Capillary refill takes less than 2 seconds. Nursing note and vitals reviewed. DIAGNOSTICS LAB: CBC WITH DIFFERENTIAL - Abnormal Result Value WBC 7.4 RBC 4.06 HEMOGLOBIN 9.8 (*) HEMATOCRIT 30.2 (*) MCV 74.4 (*) MCH 24.0 (*) MCHC 32.3 (*) RDW 18.7 (*) PLATELETS 312 MPV 7.6 (*) NEUTROPHILS 85 (*) LYMPHOCYTES 11 (*) MONOCYTES 3 EOSINOPHILS 1 BASOPHILS 0 IMMATURE GRANULOCYTES 0 NEUTROPHIL ABSOLUTE 6.40 LYMPHOCYTE ABSOLUTE 0.80 MONOCYTE ABSOLUTE 0.20 EOSINOPHIL ABSOLUTE 0.00 BASOPHILS ABSOLUTE 0.00 IMMATURE GRANULOCYTES ABSOLUTE 0.00 URINALYSIS WITH REFLEX CULTURE - Abnormal COLOR UA Yellow CLARITY UA Slightly Cloudy (*) SPECIFIC GRAVITY UA 1.017 PH UA 6.0 LEUKOCYTE ESTERASE UA Trace (*) NITRITE UA Negative PROTEIN UA Negative GLUCOSE UA Negative KETONES UA Negative UROBILINOGEN UA Normal BILIRUBIN UA Negative BLOOD UA Negative WBC UA 0-2 RBC UA 0-2 BACTERIA UA 1+ (*) EPITHELIAL CELLS, URINE 0-5 HYALINE CAST None Seen Ascorbic Acid UA Negative COMPREHENSIVE METABOLIC PANEL - Abnormal SODIUM 137 POTASSIUM 3.8 CHLORIDE 99 CO2 25 CALCIUM 9.4 BUN 10 CREATININE 0.67 GLUCOSE 125 (*) TOTAL PROTEIN 7.7 ALBUMIN 3.6 BILIRUBIN TOTAL 0.3 ALKALINE PHOSPHATASE 55 AST 14 ALT 13 GFR >60 GFR, >60 ANION GAP 13 HCG QUALITATIVE, URINE - Normal HCG QUAL URINE Negative COLOR UA Yellow CLARITY UA Clear RADIOLOGY: XR CERVICAL SPINE 4 OR 5 VIEWS Radiologist Impression IMPRESSION: Negative. DICTATION LOCATION: Location [address] [place] [address] EKG: PROCEDURES Procedures MEDICAL DECISION MAKING AND PLAN OF CARE VSS, no fever CBC: anemic w/ h/h (9.8/30.2) - pt aware of being anemic, but states does not take any iron supp UA: negative CMP: negative Pt has RA specialist she sees This pt came in w/ generalized body ache after being off of steroid for 2 days. Pt is hemodynamically stable with normal vital signs Physical exam unremarkable - ?malingering since this is her 7th ED visit just from last month Mayto now Negative lab except for chronic anemia, which pt is aware of ?body pain from steroid discontinuation to on-going lupus pain I discussed the results of diagnostic studies, my clinical impression, the plan for further treatment with the pt and to f/u with RA doctor for continue evaluation of her lupus, and pain management Pt discharged with instructions and medications. Pt is amenable to plan, expresses understanding, and all questions were answered. I also discussed return precautions with them and the importance of appropriate follow up care. Discharge instruction using teach back, understanding assessed and validated MDM DDX: chronic pain syndrome, on-going autoimmune disorder (lupus), viral illness, other Plan: labs, sx control, imaging Management: Management options include but not limited to: IV access and IV medications given. Case discussed with other providers Data Reviewed: All current, pertinent and timely studies (laboratory, imaging, and procedure(s)) were ordered and results reviewed by this SCHOOL CLEANER unless otherwise noted Triage notes and available nursing notes reviewed. Previous medical record reviewed when available.Repeat vital signs reviewed. ER return precaution discussed. Dispo: D/C home, med, f/u with PCP / RA doctor Discharge Medication List as of 07/10/2018 12:57 AM START taking these medications Details cyclobenzaprine (FLEXERIL) 10 mg tablet Take 1 Tablet (10 mg) by mouth 2 times daily as needed for Pain., Disp-20 Tablet, R-0 CONTINUE these medications which have NOT CHANGED Details ondansetron (ZOFRAN ODT) 8 mg Tablet, Rapid Dissolve Dissolve 1 tablet on top of tongue then swallow with saliva every 8 hours as needed for nausea or vomiting., Disp-10 Tablet, R-0 predniSONE (DELTASONE) 5 mg tablet Take 10 [...] mouth 2 times daily. LAST VS BP: 113/71 (07/10/18104), Heart Rate: 98 bpm (07/10/18104), Resp: 18 (07/10/18104), Pulse: (not recorded), Temp: 99.3 ??F (37.4 ??C) (07/09/182008), Temp src: (not recorded), SpO2: 100 % (07/10/18104) CLINICAL IMPRESSION Final diagnoses: [M79.18] Musculoskeletal pain (Primary) [Z87.39] History of lupus [D64.9] Anemia, unspecified type DISPOSITION, EDUCATION AND MEDICATION RECONCILIATION Medications reconciled. See after visit summary for patient education on discharged patients. ED Disposition ED Disposition Condition User Date/Time Comment Discharge Stable EleniDalton, Geovanna Barrera, STONE TRIMMER SunJuly 10, 2018 12:55 AM ATTESTATION STATEMENTS documented in this encounter Plan of Treatment Not on file documented as of this encounter Procedures Procedure Name Priority Date/Time Associated Diagnosis Comments URINALYSIS WITH REFLEX CULTURE Stat 07/09/2018 10:51 PM CDT HCG QUALITATIVE, URINE Stat 9 10:51 PM CDT XR CERVICAL SPINE 4 OR 5 VIEWS Stat 07/09/2018 10:19 PM CDT CBC WITH DIFFERENTIAL Stat 07/09/2018 10:00 PM CDT COMPREHENSIVE METABOLIC PANEL Stat 07/09/2018 10:00 PM CDT documented in this encounter Results * HCG QUALITATIVE, URINE (07/09/2018 10:51 PM CDT) HCG QUAL URINE Negative Negative 07/09/2018 11:10 PM CDT [facility] [employer] [facility] COLOR UA Yellow Pale to Dark Yellow 07/09/2018 11:10 PM CDT [facility] [employer] [facility] CLARITY UA Clear Clear 07/09/2018 11:10 PM CDT [facility] [employer] [facility] Urine URINE SPECIMEN OBTAINED BY CLEAN CATCH PROCEDURE / Unknown Collection / Unknown 07/09/2018 10:51 PM CDT 07/09/2018 11:08 PM CDT Geovanna Durham STONE TRIMMER URINE ORDERABLE S [facility] [employer] [facility] CLIA# [id number] [place] [address] * (ABNORMAL) URINALYSIS WITH REFLEX CULTURE (07/09/2018 10:51 PM CDT) COLOR UA Yellow Pale to Dark Yellow 07/09/2018 11:08 PM CDT [facility] [employer] [facility] CLARITY UA Slightly Cloudy(A) Clear 07/09/2018 11:08 PM T [facility] SPECIFIC GRAVITY UA 1.017 1.003 - 1.035 07/09/2018 11:08 PM [facility] PH UA 6.0 5.0 - 8.0 07/09/2018 11:08 PM [facility] LEUKOCYTE ESTERASE UA Trace(A) Negative 07/09/2018 11:08 PM T [facility] Comment: For patients with 'trace' results, consider ordering a culture and sensitivity if clinically indicated. NITRITE UA Negative Negative 07/09/2018 11:08 PM [facility] PROTEIN UA Negative Negative 07/09/2018 11:08 PM [facility] GLUCOSE UA Negative Negative 07/09/2018 11:08 PM [facility] KETONES UA Negative Negative 07/09/2018 11:08 PM [facility] UROBILINOGEN UA Normal <2.0 mg/dL 9 11:08 PM [facility] BILIRUBIN UA Negative Negative 07/09/2018 11:08 PM T [facility] BLOOD UA Negative Negative 07/09/2018 11:08 PM [facility] WBC UA 0-2 0 - 2 /hpf 07/09/2018 11:08 PM [facility] RBC UA 0-2 0 - 2 /hpf 07/09/2018 11:08 PM T [facility] BACTERIA UA 1+(A) Negative /hpf 07/09/2018 11:08 PM CDT [facility] EPITHELIAL CELLS, URINE 0-5 0 - 5 /hpf 07/09/2018 11:08 PM [facility] HYALINE CAST None Seen None Seen, 0-2 /lpf 07/09/2018 11:08 PM [facility] Ascorbic Acid UA Negative Negative 07/10/19 19 11:08 PM [facility] Urine URINE SPECIMEN OBTAINED BY CLEAN CATCH PROCEDURE / Unknown Collection / Unknown 07/09/2018 10:51 PM CDT 07/09/2018 11:04 PM CDT Geovanna Barrera MaliKarySha STONE TRIMMER URINE ORDERABLE S [facility] [employer] [facility] CLIA# [id number] [place] [address] * XR CERVICAL SPINE 4 OR 5 VIEWS (07/09/2018 10:19 PM CDT) Anatomical Region Laterality Modality Spine Computed Radiogr aphy 07/09/2018 10:2 0 PM CDT Impressions 07/09/2018 10:38 PM CDT IMPRESSION: Negative. DICTATION LOCATION: [address] Narrative 07/09/2018 10:38 PM CDT XR CERVICAL SPINE 4 OR 5 VIEWS DATE: 07/09/2018 10:19 PM HISTORY: Neck and back pain. FINDINGS: AP, both oblique, lateral and open-mouth views are obtained. There is good alignment. No disc space narrowing, neural foraminal encroachment or other abnormality is present. The prevertebral soft tissues have a normal appearance. Procedure Note Norberto Fung MD - 07/09/2018 XR CERVICAL SPINE 4 OR 5 VIEWS DATE: 07/09/2018 10:19 PM HISTORY: Neck and back pain. FINDINGS: AP, both oblique, lateral and open-mouth views are obtained. There is good alignment. No disc space narrowing, neural foraminal encroachment or other abnormality is present. The prevertebral soft tissues have a normal appearance. IMPRESSION: Negative. DICTATION LOCATION: Location [address] [place] [address] Geovanna Barrera Herminio STONE TRIMMER DIAGNOSTIC IMAG ING ORDERABLES * (ABNORMAL) COMPREHENSIVE METABOLIC PANEL (07/09/2018 10:00 PM CDT) SODIUM 137 136 - 145 mmol/L 07/09/2018 10:32 PM CDT [facility] [employer] [facility] POTASSIUM 3.8 3.4 - 5.1 mmol/L 07/09/2018 10:32 PM [facility] CHLORIDE 99 98 - 107 mmol/L 07/09/2018 10:32 PM [facility] CO2 25 22 - 29 mmol/L 07/09/2018 10:32 PM [facility] CALCIUM 9.4 8.6 - 10.4 mg/dL 07/09/2018 10:32 PM [facility] BUN 10 6 - 20 mg/dL 07/09/2018 10:32 PM [facility] CREATININE 0.67 0.50 - 1.00 mg/dL 07/09/2018 10:32 PM [facility] GLUCOSE 125(H) 74 - 99 mg/dL 07/09/2018 10:32 PM [facility] TOTAL PROTEIN 7.7 6.3 - 8.7 g/dL 07/09/2018 10:32 PM [facility] ALBUMIN 3.6 3.5 - 5.2 g/dL 07/09/2018 10:32 PM [facility] BILIRUBIN TOTAL 0.3 0.2 - 1.3 mg/dL 07/09/2018 10:32 PM [facility] ALKALINE PHOSPHATASE 55 40 - 150 U/L 07/09/2018 10:32 PM [facility] AST 14 0 - 33 U/L 07/09/2018 10:32 PM [facility] ALT 13 0 - 33 U/L 07/09/2018 10:32 PM [facility] GFR >60 >=60 mL/min/1.7 3 sq meter 07/09/2018 10:32 PM [facility] Comment: eGFR has not [...] GFR, >60 >=60 mL/min/1.7 3 sq meter 07/09/2018 10:32 PM CDT [facility] ANION GAP 13 8 - 16 mmol/L 07/09/2018 10:32 PM CDT [facility] Blood Venipuncture / Unknown 07/09/2018 10:00 PM CDT 07/09/2018 10:08 PM CDT Geovanna Durham STONE TRIMMER CHEMISTRY ORDER ANAHI [facility] CLIA# [id number] [place] [address] * (ABNORMAL) CBC WITH DIFFERENTIAL (07/09/2018 10:00 PM CDT) WBC 7.4 4.5 - 10.5 K/uL 07/09/2018 10:20 PM CDT [facility] RBC 4.06 3.90 - 4.90 M/uL 07/09/2018 10:20 PM CDT [facility] HEMOGLOBIN 9.8(L) 11.8 - 14.8 g/dL 07/09/2018 10:20 PM T [facility] HEMATOCRIT 30.2(L) 35.5 - 44.0 % 07/09/2018 10:20 PM T [facility] MCV 74.4(L) 82.0 - 99.0 fL 07/09/2018 10:20 PM CDT [facility] MCH 24.0(L) 27.8 - 34.5 pg 07/09/2018 10:20 PM CDT [facility] MCHC 32.3(L) 32.5 - 35.5 g/dL 07/09/2018 10:20 PM CDT [facility] RDW 18.7(H) 11.5 - 14.5 % 07/09/2018 10:20 PM CDT [facility] PLATELETS 312 160 - 420 K/uL 07/09/2018 10:20 PM CDT [facility] MPV 7.6(L) 8.7 - 12.7 fL 07/09/2018 10:20 PM CDT [facility] NEUTROPHILS 85(H) 45 - 70 % 07/09/2018 10:20 PM CDT [facility] LYMPHOCYTES 11(L) 16 - 45 % 07/09/2018 10:20 PM CDT [facility] MONOCYTES 3 3 - 13 % 07/09/2018 10:20 PM CDT [facility] EOSINOPHILS 1 0 - 7 % 07/09/2018 10:20 PM CDT [facility] BASOPHILS 0 0 - 2 % 07/09/2018 10:20 PM CDT [facility] IMMATURE GRANULOCYTES 0 0 - 5 % 07/09/2018 10:20 PM CDT [facility] NEUTROPHIL ABSOLUTE 6.40 1.90 - 7.00 K/uL 07/09/2018 10:20 PM CDT [facility] LYMPHOCYTE ABSOLUTE 0.80 K/uL 07/09/2018 10:20 PM CDT [facility] MONOCYTE ABSOLUTE 0.20 K/uL 019 10:20 PM CDT [facility] EOSINOPHIL ABSOLUTE 0.00 0.00 - 0.70 K/uL 07/09/2018 10:20 PM CDT [facility] BASOPHILS ABSOLUTE 0.00 K/uL 07/09/2018 10:20 PM CDT [facility] IMMATURE GRANULOCYTES ABSOLUTE 0.00 K/uL 07/09/2018 10:20 PM CDT [facility] Blood Venipuncture / Unknown 07/09/2018 10:00 PM CDT 07/09/2018 10:08 PM CDT Geovanna Durham STONE TRIMMER HEMATOLOGY ORDJose RIVERA [facility] CLIA# [id number] [place] [address] documented in this encounter Visit Diagnoses Diagnosis Musculoskeletal pain- Primary Mylagia and myositis, unspecified History of lupus Personal history of other endocrine, metabolic, and immunity disorders Anemia, unspecified type documented in this encounter Care Teams Carpenter Helper Maintenance Relationship Specialty Start Date End Date Huseyin Dangelo MD PCP - General 09/29/17 07/14/19 documented as of this encounter
--- OUTSIDE RECORDS SUMMARY | 2024-02-24 20:39 | XMS_ITS | Encounter Summary ---
Author Organization [facility] Address [address] [place] [address] Care Team Providers Care Community Service Aide Name Role Phone Brian Mon MD Primary Care Provider Encounter Details Date Type Department Care Team (Late st Contact Info) Description 05/05/[address] [facility] Family Therapy [address] [place] [phone] Hanh Benavidez Social History Tobacco Use [...] documented as of this encounter Care Teams Community Service Aide Relationship Specialty Start Date End Date Brian Mon MD [address] [place] [phone] (work) PCP - General Internal Medicine 07/15/19 documented as of this encounter
--- OUTSIDE RECORDS SUMMARY | 2024-02-24 20:39 | XMS_ITS | Encounter Summary ---
Author Organization [facility] Address [address] [place] [address] Care Team Providers Care Bulb Inspector Name Role Phone Huseyin Dangelo MD Primary Care Provider [phone] Reason for Visit * Reason Comments Generalized Body Aches Weakness Fall * Auth/Cert Specialty Diagnoses / Procedures Referred By Jud freeman Referred To Contact Emergency Medicine [facility] Emergency Department [id number] [place] [phone] Referral ID Status Reason Start Date Expiration Date Visits Re quested Visits Authorized [id number] 1 1 Encounter Details Date Type Department Care Team (Late st Contact Info) Description 07/11/2018 11:02 AM CDT - 07/12/2018 6:28 PM CDT [facility] [id number] [place] [phone] Angela Lobo MD [place] [address] [place] [address] Myalgia, unspecified site Discharge Disposition: Home or Self Care Social [...] Sign Reading Time Taken Comments Blood Pressure 111/64 07/12/2018 12:28 PM CDT Pulse 101 07/12/2018 12:28 PM CDT Temperature 36.9 ??C (98.4 ??F) 07/12/2018 12:28 PM C DT Respiratory Rate 18 07/12/2018 12:28 PM CDT Oxygen Saturation 100% 07/12/2018 12:28 PM CDT Inhaled Oxygen Concentration - - Weight 63.5 kg (140 lb) 07/11/2018 11:04 AM CDT Height 154.9 cm (5' 1 ) 07/11/2018 11:04 AM CDT Body Mass Index 26.45 07/11/2018 11:04 AM CDT documented in this encounter Discharge Instructions * Attachments The following attachments cannot be sent through Care Everywhere. * Lupus ([place]orese) documented in this encounter Medications at Time of Discharge Medication Sig Dispensed Refills Start Date End Date hydroxychloroquine (PLAQUENIL) 200 mg tablet Take 200 mg by mouth daily. valACYclovir (VALTREX) 1 gram tablet Take 1,000 mg by mouth 2 times daily. 04/27/2020 documented as of this encounter Progress Notes * Jorge A Rapp MD - 07/12/2018 2:12 PM CDT Admit Date: 07/11/2018 Subjective: Able to walk today Walked without any assistance while I was in her room She has multiple complaints including joint pain weakness , inability to focus Current Meds: Current Facility-Administered Medications: ??? fluconazole (DIFLUCAN) tablet 200 mg, 200 mg, Oral, ONCE, Jorge A Rapp MD ??? [DISCONTINUED] fluconazole (DIFLUCAN) tablet 200 mg, 200 mg, Oral, Daily, Jorge A Rapp MD ??? [COMPLETED] traMADol (ULTRAM) tablet 50 mg, 50 mg, Oral, ONCE, Faraz Negro FNP, 50 mg at 07/11/18 1429 ??? naloxone (NARCAN) 0.4 mg/mL injection 0.1 mg, 0.1 mg, IV, See Admin Notes, Sha Chavez FNP ??? enoxaparin (LOVENOX) injection 40 mg, 40 mg, subCUT, q 24 hour, Craig Espinoza Sherry R, BUSINESS PROJECT MANAGER ??? acetaminophen (TYLENOL) tablet 650 mg, 650 mg, Oral, q 4 hour PRN, Craig Espinoza Sherry R, BUSINESS PROJECT MANAGER ??? aluminum - magnesium - simethicone (MYLANTA) 200-200-20 mg/5 mL oral suspension 10 mL, 10 mL, Oral, q 6 hour PRN, Kathy Sherry R, BUSINESS PROJECT MANAGER ??? lwwdjmfmop-vhackab-duqssnqlacivc (CEPACOL) lozenge 1 Each, 1 Each, Mouth/Throat, q 1 hour PRN, Kathy Sherry R, BUSINESS PROJECT MANAGER ??? bisacodyl (DULCOLAX) rectal suppository 10 mg, 10 mg, Rectal, Daily PRN, Kathy Sherry R, BUSINESS PROJECT MANAGER ??? calcium as carbonate (TUMS) 500 mg (200 mg elemental) chewable tablet 200 mg, 200 mg, Oral, q 6hour PRN, Kathy Sherry R, BUSINESS PROJECT MANAGER ??? dextromethorphan-guaiFENesin 10-100 mg/5 mL oral liquid, 10 mL, Oral, q 4 hour PRN, Kathy Sherry R, BUSINESS PROJECT MANAGER ??? diphenhydrAMINE (BENADRYL) tablet 25 mg, 25 mg, Oral, HS PRN, Craig Espinoza Sherry R, BUSINESS PROJECT MANAGER ??? hydrALAZINE (APRESOLINE) 20 mg/mL injection 10 mg, 10 mg, IV, q 6 hour PRN, Kathy Sherry R, BUSINESS PROJECT MANAGER ??? ipratropium-albuterol (DUONEB) 0.5 mg-3 mg(2.5 mg base)/3 mL inhalation solution 3 mL, 3 mL, Inhalation, Resp q 6 h PRN, Angela Chaveza R, BUSINESS PROJECT MANAGER ??? ondansetron (ZOFRAN ODT) tablet 4 mg, 4 mg, Oral, q 8 hour PRN, Craig Espinoza Sherry R, BUSINESS PROJECT MANAGER ??? prochlorperazine (COMPAZINE) injection 10 mg, 10 mg, IV, q 6 hour PRN, Kathy Sherry R, BUSINESS PROJECT MANAGER ??? sennosides-docusate sodium (SENNA-S) 8.6-50 mg per tablet 1 Tablet, 1 Tablet, Oral, Daily PRN, Kathy Sherry R, BUSINESS PROJECT MANAGER ??? sodium chloride (OCEAN) 0.65 % nasal soln 2 Sanford, 2 Sanford, Both Nostrils, q 15 min PRN, Kathy Sherry R, BUSINESS PROJECT MANAGER ??? naloxone (NARCAN) 0.4 mg/mL injection 0.1 mg, 0.1 mg, IV, See Admin Notes, Faraz Negro FNP ??? LORazepam (ATIVAN) tablet 1 mg, 1 mg, Oral, Once PRN, Kathy Sherry R, BUSINESS PROJECT MANAGER ??? baclofen (LIORESAL) tablet 10 mg, 10 mg, Oral, q 8 hour PRN, Kathy Sherry R, BUSINESS PROJECT MANAGER ??? ibuprofen (MOTRIN) tablet 800 mg, 800 mg, Oral, q 8 hour PRN, Craig Espinoza Sherry Lianne, BUSINESS PROJECT MANAGER, 600 mg at 07/12/18 0949 ??? [DISCONTINUED] sodium chloride 0.9% infusion, , IV, Continuous, Faraz Negro FNP, Stopped at 07/11/18 2030 Review of Systems Objective: BP 111/64 (BP Location: Left arm, Patient Position (BP): Sitting) Pulse (!) 101 Temp 98.4 ??F (36.9 ??C) (Oral) Resp 18 Ht 5' 1 (1.549 m) Wt 63.5 kg (140 lb) LMP 06/26/2018 SpO2 100% ? No BMI 26.45 kg/m?? No intake or output data in the 24 hours ending 07/12/18 1412 PHYSICAL EXAM: aox3 HEENT: Mucosa pink moist. Sclerae anicteric. NECK: Supple. No JVD. LUNGS: Clear to auscultation. CV: Regular rate and rhythm. S1, S2. ABDOMEN: Soft, nontender, nondistended. Bowel sounds positive. EXTREMITIES: No edema.laura negative, calves soft NEUROLOGIC EXAM: Nonfocal. SKIN: No rash. . Data ReviewCBC: Lab Results Component Value Date/Time WBC 7.4 07/11/2018 01:07 PM RBC 4.05 07/11/2018 01:07 PM BMP: Lab Results Component Value Date/Time GLUCOSE 94 07/11/2018 11:59 AM SODIUM 135 (L) 07/11/2018 11:59 AM POTASSIUM 4.7 07/11/2018 11:59 AM CHLORIDE 103 07/11/2018 11:59 AM CO2 18 (L) 07/11/2018 11:59 AM BUN 12 07/11/2018 11:59 AM Coagulation: No results found for: PT, INR, APTT Cardiac markers: Lab Results Component Value Date/Time CKMB 1.2 01/03/2018 07:39 AM ASSESSMENT: Active Problems: Myalgia, unspecified site Arthralgia Weakness Lupus Vaginal candidiasis Anemia likely due to menstrual periods PLAN: Diflucan x1 Obtain MRI to rule out significant intracranial pathology I had a long discussion with the patient and explained to her that she needs to follow-up with her safety investigator/cause analyst as well as primary care physician and possible neurologist as outpatient for further work-up of her symptoms if the MRI does not show anything which she needs to stay in the hospital She tells me that she lost her insurance and she would like to have work-up done at the hospital. Itold her that will not be possible. I tried to explain her that if the MRI is negative she does not need to be in the hospital anymore but needs to have outpatient follow-up and further work-up Plan of care discussed with patient's nurse Jorge A Rapp MD [facility] * Rose Mary Rao, Occupational Therapist - 07/12/2018 1:29 PM CDT Pt is indep. No OT needs documented in this encounter H&P Notes * Sherry Chavez FNP - 07/11/2018 9:19 PM CDT Primary Care Physician: Huseyin Dangelo MD DATE OF SERVICE: 07/11/2018 CHIEF COMPLAINT: Chief Complaint Patient presents with ??? Generalized Body Aches ??? Weakness ??? Fall HISTORY OF PRESENT ILLNESS: Carito Rausch 28 y.o. female, diagnosed with lupus in dec. Her safety investigator/cause analyst is Dr. Hernández. Shewas taking prednisone and plaquenil w/o improvement and so she stopped. She doesn't feel any different off of it. Overall has joint pain and feels like she cant move her legs. She thinks she has to lift the leg upto go up step etc. She has fallen. She is fatigued, frustrated and tearful. Today she had tingling in her feet and around her mouth. REVIEW OF SYSTEMS: Review of Systems Constitutional: Positive for malaise/fatigue. HENT: Negative. Eyes: Negative. Respiratory: Negative. Cardiovascular: Negative. Gastrointestinal: Negative. Genitourinary: Negative. Musculoskeletal: Positive for falls, joint pain and myalgias. Skin: Negative. Neurological: Positive for tingling and weakness. Endo/Heme/Allergies: Negative. Psychiatric/Behavioral: Negative. All other 12 point ROS is negative except for what is mentioned above Wt Readings from Last 3 Encounters: 07/11/18 63.5 kg (140 lb) 06/19/18 61.2 kg (135 lb) 06/19/18 61.2 kg (135 lb) Past Medical History: Diagnosis Date ??? Anxiety ??? Connective tissue disease ??? Depression ??? Fibromyalgia ??? HTN (hypertension) ??? Lupus WARE CARRIER MED LIST: Prior to Admission Medications Prescriptions Last Dose Informant Patient Reported? Taking? HYDROcodone-acetaminophen (NORCO) 5-325 mg tablet No Yes Sig: Take 1 Tablet by mouth every 4 hours as needed for Pain. Max Daily Amount: 6 Tablets cyclobenzaprine (FLEXERIL) 10 mg tablet No Yes Sig: Take 1 Tablet (10 mg) by mouth 2 times daily as needed for Pain. hydroxychloroquine (PLAQUENIL) 200 mg tablet Yes No Sig: Take 200 mg by mouth daily. ondansetron (ZOFRAN ODT) 8 mg Tablet, Rapid Dissolve Unknown at Unknown time No No Sig: Dissolve 1 tablet on top of tongue then swallow with saliva every 8 hours as needed for nauseaor vomiting. ondansetron (ZOFRAN) 4 mg Tablet Unknown at Unknown time No No Sig: Take 1 Tablet (4 mg) by mouth every 8 hours as needed for Nausea. predniSONE (DELTASONE) 5 mg tablet Yes Yes Sig: Take 10 mg by mouth daily with breakfast . valACYclovir (VALTREX) 1 gram tablet Yes Yes Sig: Take 1,000 mg by mouth 2 times daily. Facility-Administered Medications: None ALLERGIES: Allergies Allergen Reactions ??? Methylprednisolone Syncope PMFSH: reviewed by myself : FAMILY MEDICAL HISTORY: Not contributory PAST SOCIAL HISTORY : Social History Tobacco Use ??? Smoking status: Former Smoker Packs/day: 0.25 Types: Cigarettes Last attempt to quit: 12/11/2017 Years since quittin.5 ??? Smokeless tobacco: Never Used Substance Use Topics ??? Alcohol use: Yes Comment: socially Past Surgical History: Procedure Laterality Date ??? HX APPENDECTOMY PHYSICAL EXAMINATION: Blood pressure 134/88, pulse (!) 105, temperature 98.2 ??F (36.8 ??C), temperature source Oral, resp. rate 18, height 5' 1 (1.549 m), weight 63.5 kg (140 lb), last menstrual period 06/26/2018, SpO2 100 %, not currently . GENERAL: Patient is awake, alert, oriented x3, not in acute cardiorespiratory distress. HEAD AND NECK: Rock conjunctivae, anicteric sclerae, neck supple, moist mucous membranes CHEST/LUNGS: No crackles, no wheeze CARDIOVASCULAR: Normal rate, regular rhythm. Normal S1, normal S2. No murmur ABDOMEN: Soft, non-tender, no rebound, not distended. Normoactive bowel sounds. EXTREMITIES: No edema. Pulses are palpable bilaterally. NEUROLOGIC EXAM: Essentially nonfocal and symmetric. Gait evaluated and normal PSYCH: anxious, tearful SKIN:wdi LABORATORY: Recent Labs 07/09/18 2200 07/11/18 1159 07/11/18 1307 NA 137 135* -- K 3.8 4.7 -- BUN 10 12 -- CREAT 0.67 0.66 -- GLUCOSE 125* 94 -- ALBUMIN 3.6 3.7 -- AST 14 32 -- ALT 13 14 -- WBC 7.4 -- 7.4 HCT 30.2* -- 30.5* PLT 312 -- 301 RADIOLOGY STUDIES: imaging from ER seen CARDIAC STUDIES: Results for orders placed or performed during the hospital encounter of 07/11/18 EKG 12-LEAD Result Value Ref Range VENTRICULAR RATE 104 BPM ATRIAL RATE 104 BPM P-R INTERVAL 122 ms QRS DURATION 78 ms Q-T INTERVAL 330 ms QTC CALCULATION(BEZET) 433 ms P AXIS 36 degrees R AXIS 40 degrees T AXIS 19 degrees RESULT Sinus tachycardia Nonspecific ST abnormality Abnormal ECG When compared with ECG of 23-JUN-2018 12:33, No significant change was found Confirmed by ANUEL BOLDEN ([id number]) on 07/11/2018 3:17:30 PM ASSESSMENT: Myalgias , arthralgias , weakness, tingling in feet/mouth Lupus RECOMMENDATIONS: I have told her she needs to be patient with her safety investigator/cause analyst and follow his orders. Get an MRI of her brain to r/o MS or other central cause of her symptoms. Neurologist was asked to evaluate her Tylenol or ibuprofen PRN Muscle relaxer ok DVT pro-lovenox Code status- full Note: This H+P was created with the aid of dictation software, thus there may be some word substitutions or errors Sherry Chavez NP-Rima [facility] [phone] 07/11/2018 9:20 PM documented in this encounter Consult Notes * Bhupendra Johnson MD - 07/12/2018 5:46 PM CDTAssociated Order(s): IP CONSULT TO NEUROLOGY Neurology Consult Note Admit Date: 07/11/2018 ATTENDING PROVIDER; Jorge A Rapp MD Reason for consultation; Pain all over the body Impression; Paresthesias and pain, lot of anxiety and fibromyalgia probably causing her symptoms not a neurological symptom and not consistent with multiple sclerosis or ALS which she is worried about History of lupus Recommendations; MRI brain is normal No neuro work-up is needed Follow-up with the safety investigator/cause analyst Discussed with the patient History of Presenting Illness; 28 y.o. female admitted 07/11/2018 with with history of lupus was admitted for work-up because she has been having pain all over her body every joint hurts and she complained of difficulty moving her legs she reports that she has been on prednisone for a year and she is also on Plaquenil. She reports she did not get better so she is thinking that she may have multiple sclerosis or ALS. I have explained to her that she does not have the signs and symptoms. 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 I have explained to her that she does not have any neurological disorder at this time she has to go with the diagnosis of lupus and get treated for that as an outpatient Allergies Allergen Reactions ??? Methylprednisolone Syncope Past Medical History: Diagnosis Date ??? Anxiety ??? Connective tissue disease ??? Depression ??? Fibromyalgia ??? HTN (hypertension) ??? Lupus Past Surgical History: Procedure Laterality Date ??? HX APPENDECTOMY Social History Tobacco Use ??? Smoking status: Former Smoker Packs/day: 0.25 Types: Cigarettes Last attempt to quit: 12/11/2017 Years since quittin.5 ??? Smokeless tobacco: Never Used Substance Use Topics ??? Alcohol use: Yes Comment: socially No family history on file. Prior to Admission medications Medication Sig Start Date End Date Taking? Authorizing Provider cyclobenzaprine (FLEXERIL) 10 mg tablet Take 1 Tablet (10 mg) by mouth 2 times daily as needed for Pain. 07/10/18 Yes Geovanna Durham FNP HYDROcodone-acetaminophen (NORCO) 5-325 mg tablet Take 1 Tablet by mouth every 4 hours as needed for Pain. Max Daily Amount: 6 Tablets 01/03/18 Yes Jackson Madsen MD valACYclovir (VALTREX) 1 gram tablet Take 1,000 mg by mouth 2 times daily. Yes Provider, Historical ondansetron (ZOFRAN ODT) 8 mg Tablet, Rapid Dissolve Dissolve 1 tablet on top of tongue then swallow with saliva every 8 hours as needed for nausea or vomiting. 04/13/18 07/12/18 Hanh Travis FNP hydroxychloroquine (PLAQUENIL) 200 mg tablet Take 200 mg by mouth daily. Provider, Historical predniSONE (DELTASONE) 5 mg tablet Take 10 mg by mouth daily with breakfast . 07/12/18 Provider, Historical ondansetron (ZOFRAN) 4 mg Tablet Take 1 Tablet (4 mg) by mouth every 8 hours as needed for Nausea. 01/10/18 Judit Smallwood PA Medications; Current Facility-Administered Medications Medication Dose Route Frequency Provider Last Rate Last Dose ??? [COMPLETED] fluconazole (DIFLUCAN) tablet 200 mg 200 mg Oral ONCE Jorge A Rapp MD 200 mg at 07/12/18 1537 ??? [DISCONTINUED] fluconazole (DIFLUCAN) tablet 200 mg 200 mg Oral Daily Jorge A Rapp MD ??? naloxone (NARCAN) 0.4 mg/mL injection 0.1 mg 0.1 mg IV See Admin Notes Sherry Chavez, BUSINESS PROJECT MANAGER ??? enoxaparin (LOVENOX) injection 40 mg 40 mg subCUT q 24 hour Sherry Chavez, BUSINESS PROJECT MANAGER ??? acetaminophen (TYLENOL) tablet 650 mg 650 mg Oral q 4 hour PRN Sherry Caceres, BUSINESS PROJECT MANAGER ??? aluminum - magnesium - simethicone (MYLANTA) 200-200-20 mg/5 mL oral suspension 10 mL 10 mL Oral q 6 hour PRN Sherry Chavez, BUSINESS PROJECT MANAGER ??? clgqlmjtmz-immsacq-piqulshdqhuqw (CEPACOL) lozenge 1 Each 1 Each Mouth/Throat q 1 hour PRN Sherry Chavez, BUSINESS PROJECT MANAGER ??? bisacodyl (DULCOLAX) rectal suppository 10 mg 10 mg Rectal Daily PRN Sherry Chavez, BUSINESS PROJECT MANAGER ??? calcium as carbonate (TUMS) 500 mg (200 mg elemental) chewable tablet 200 mg 200 mg Oral q 6 hour PRN Sherry Chavez, BUSINESS PROJECT MANAGER ??? dextromethorphan-guaiFENesin 10-100 mg/5 mL oral liquid 10 mL Oral q 4 hour PRN Sherry Chavez, BUSINESS PROJECT MANAGER ??? diphenhydrAMINE (BENADRYL) tablet 25 mg 25 mg Oral HS PRN Sherry Chavez, BUSINESS PROJECT MANAGER ??? hydrALAZINE (APRESOLINE) 20 mg/mL injection 10 mg 10 mg IV q 6 hour PRN Sherry Chavez,BUSINESS PROJECT MANAGER ??? ipratropium-albuterol (DUONEB) 0.5 mg-3 mg(2.5 mg base)/3 mL inhalation solution 3 mL 3 mL Inhalation Resp q 6 h PRN Sherry Chavez, BUSINESS PROJECT MANAGER ??? ondansetron (ZOFRAN ODT) tablet 4 mg 4 mg Oral q 8 hour PRN Sherry Chavez, BUSINESS PROJECT MANAGER ??? prochlorperazine (COMPAZINE) injection 10 mg 10 mg IV q 6 hour PRN Craig Espinoza Sherry R, BUSINESS PROJECT MANAGER ??? sennosides-docusate sodium (SENNA-S) 8.6-50 mg per tablet 1 Tablet 1 Tablet Oral Daily PRN Sherry Chavez, BUSINESS PROJECT MANAGER ??? sodium chloride (OCEAN) 0.65 % nasal soln 2 Sanford 2 Sanford Both Nostrils q 15 min PRN Sherry Chavez, BUSINESS PROJECT MANAGER ??? naloxone (NARCAN) 0.4 mg/mL injection 0.1 mg 0.1 mg IV See Admin Notes Faraz Negro FNP ??? LORazepam (ATIVAN) tablet 1 mg 1 mg Oral Once PRN Sherry Chavez, BUSINESS PROJECT MANAGER ??? baclofen (LIORESAL) tablet 10 mg 10 mg Oral q 8 hour PRN Sherry Chavez, BUSINESS PROJECT MANAGER ??? ibuprofen (MOTRIN) tablet 800 mg 800 mg Oral q 8 hour PRN Sherry Chavez, BUSINESS PROJECT MANAGER 600 mg at07/12/18 0949 ??? [DISCONTINUED] sodium chloride 0.9% infusion IV Continuous Faraz Negro FNP Stopped at 07/11/18 2030 Patient Active Problem List Diagnosis Code ??? Myalgia, unspecified site M79.10 ??? Arthralgia M25.50 ??? Weakness R53.1 ??? Lupus L93.0 Review of Systems A comprehensive review of systems was completed. All other systems negative except as marked. Additional ROS noted in HPI. Positive (+) Constitutional : headache (-), weight loss (-), fever(-),weight gain(-) Eyes: blurring of vision (-), double vision (-) Ears: decreased hearing (-), ear discharge (-),ringing (-) Nose: itching (-), bleeding (-), congestion Respiratory: cough (-), wheezing (-), shortness of breath (-) Cardiac: Chest pain (-), palpitations (-), arrythmia (-) Gastrointestinal: nausea (-) vomiting (-), diarrhea (-), abdomen pain (- ),constipation (-), Genito urinary: burning urination (-), frequency urination (-), nocturia (-) Musculoskeletal: joint pain (-), joint swelling (-), gout (-), arthritis (-), Hematologic: anemia (-), low blood counts (-), transfusions (-), cancer (-) Endocrine: Polyuria (-), polydypsia (-), polyphagia Skin: Rash (-), itching (-), cancer (-) Psychiatric: depression (-), anxiety (-), suicidal ideations (-), hallucinations (-) MANAGER SCHEDULING: Seizures (-), weakness (+), tingling (-), numbness (+),memory loss(-) Sleep; Snoring (-) , insomnia (-) , RLS (-) , sleep walking (-) , sleep talking (-) Physical Exam BP 111/64 (BP Location: Left arm, Patient Position (BP): Sitting) Pulse (!) 101 Temp 98.4 ??F (36.9 ??C) (Oral) Resp 18 Ht 5' 1 (1.549 m) Wt 63.5 kg (140 lb) LMP 06/26/2018 SpO2 100% ? No BMI 26.45 kg/m?? at the time of this note General; Alert, well-appearing, no apparent distress Head; Atraumatic, no obvious abnormality Eyes; Midline, nonicteric, not pale Ears; Pinnae normal Nose; No discharges, mucous membrane normal Mouth; No bleeding per gums Oropharynx; Narrow airway, Mallampati class Neck; Supple, no meningismus Heart; S1 and S2 regular Lungs; Clear to auscultation Abdomen; Soft, nontender, bowel sounds normal Extremities; No edema or cyanosis Skin; No rash, no petechiae Psychiatric; Normal affect and mood Neurological exam Mental status The patient is alert and oriented to person, place, and time with normal speech. Memory is normal and thought process is intact. Cranial nerves (II, III, IV, ) Visual martinez normal in all quadrants. Pupils are round, reactive to light and accommodation. Extraocular movements are intact without ptosis. (V) Facial sensation is intact to bilaterally to dull, sharp, and light touch stimuli. (VII) Facial muscle strength is normal and equal bilaterally. (VIII) Hearing is normal bilaterally. (IX, X) Palate and uvula elevate symmetrically, with intact gag reflex (XI) Shoulder shrug strong, and equal bilaterally (XII) Tongue protrudes midline and moves symmetrically. DTR 1/4 through out Plantar reflex is downward bilaterally. Sensory Sensation is intact bilaterally to pain and light touch. Motor Good muscle tone. Strength is 5/5 Cerebellar Bpnymq-ow-jvxp normal bilaterally.Rapid alternating movements normal. Gait; Steady with a normal base. Data Review; I have personally reviewed the lab data Lab Results Component Value Date/Time WBC 7.4 07/11/2018 01:07 PM HGB 9.6 (L) 07/11/2018 01:07 PM HCT 30.5 (L) 07/11/2018 01:07 PM MCV 75.4 (L) 07/11/2018 01:07 PM PLT 301 07/11/2018 01:07 PM Lab Results Component Value Date/Time BUN 12 07/11/2018 11:59 AM NA 135 (L) 07/11/2018 11:59 AM K 4.7 07/11/2018 11:59 AM CL 103 07/11/2018 11:59 AM CO2 18 (L) 07/11/2018 11:59 AM Lab Results Component Value Date/Time ALT 14 07/11/2018 11:59 AM AST 32 07/11/2018 11:59 AM ALKPHOS 55 07/11/2018 11:59 AM Lab Results Component Value Date/Time WBC UA 6-10 (A) 07/11/2018 12:59 PM No results found for: HDL, LDLCALC No components found for: GLUCOSEPOI No components found for: TSHREFLEX Lab Results Component Value Date/Time TSH 2.03 06/23/2018 11:39 AM I have personally reviewed the imaging studies Xr Cervical Spine 4 Or 5 Views Result Date: 07/11/2018 CERVICAL SPINE 4 VIEWS DATE: 07/11/2018 12:39 PM HISTORY: Pain. COMPARISON: No prior studies are available for comparison two days earlier. TECHNIQUE: AP, open mouth, lateral and swimmers. FINDINGS: The normal cervical curve is reversed. There is no fracture or lysis. The C1-2 articulation is normal. Disc and vertebral body heights are normal. The neural foramen are widely patent. IMPRESSION: Reversal of the normal cervical curve otherwise negative study. DICTATION LOCATION: [address] Xr Cervical Spine 4 Or 5 Views Result Date: 07/09/2018 XR CERVICAL SPINE 4 OR 5 VIEWS DATE: 07/09/2018 10:19 PM HISTORY: Neck and back pain. FINDINGS: AP, both oblique, lateral and open-mouth views are obtained. There is good alignment. No disc space narrowing, neural foraminal encroachment or other abnormality is present. The prevertebral soft tissues have a normal appearance. IMPRESSION: Negative. DICTATION LOCATION: [address] Xr Lumbar Spine 4+ Vw Result Date: 07/11/2018 LUMBAR SPINE - FIVE VIEWS DATE: 07/11/2018 12:39 PM HISTORY: Low back pain. COMPARISON: November 13, 2016. FINDINGS: Examination of the lumbar spine, and lumbosacral and sacroiliac areas in AP, oblique and lateral projections to include a lateral film of the L5-S1 articulation and the sacrum, failsto reveal the presence of fracture or dislocation. The vertebral bodies are normally aligned. The interspaces are of average width. The visualized bone density and architecture are within normal limits. There is no evidence of spondylosis or spondylolisthesis. IMPRESSION: Normal lumbar spine. DICTATION LOCATION: [address] Head Wo Contrast Result Date: 07/11/2018 CT HEAD WITHOUT CONTRAST DATE: 07/11/2018 12:14 PM HISTORY: Headache, post traumatic; recurrent falls. COMPARISON: No prior studies are available for comparison. TECHNIQUE: Helical axial CT was performed without contrast from the skull base to the vertex. The examination was performed with the adjustment of mA according to the patient size and/or use of Iterative Reconstruction Technique. FINDINGS: The tejeda and white matter appear normal. The ventricular size is acceptable for the age. The cisterns and sulci are normal. There is no shift or mass lesion. There is no subdural or epidural hematoma. Bone windows appear normal. IMPRESSION: Normal computed tomography of the head without contrast. DICTATION LOCATION: [address] Mri Brain Wo Contrast Result Date: 07/12/2018 MRI OF THE BRAIN WITHOUT CONTRAST DATE: 07/12/2018 4:56 PM CLINICAL HISTORY: Ataxia. Weakness. Tingling in the feet. TECHNIQUE: MRI examination of the brain is performed in routine pulsing sequences without the use of contrast. FINDINGS: Motion artifact is seen on multiple pulsing sequences. The fourth ventricle lies in a normal midline position. The ventricles and sulci are within normal limits. There is no hypointense or hyperintense mass or midline shift. There is no abnormal signal intensityon the diffusion-weighted images to suggest an area of acute ischemia. The posterior fossa and pituitary gland are unremarkable. The intracranial vessels appear patent. The examination is limited by the extent of motion. IMPRESSION: 1. Motion artifact. 2. No evidence of acute intracranial changes. DICTATION LOCATION: Location 7 - [facility] Thanks for allowing me to participate in the care of this patient. Bhupendra Johnson MD Board certified Neurology, Neurophysiology, Sleep medicine documented in this encounter ED Notes * Alissa Lowe RN - 07/11/2018 6:05 PM CDT Food tray ordered at this time. Will be delivered to [phone] * Alissa Lowe RN - 07/11/2018 5:54 PM CDT Report called to PRO Claudio. All questions answered. * Alissa Lowe RN - 07/11/2018 5:43 PM CDT Patient reports IV is painful and is making her right arm numb. This RN flushed IV and jayy back blood. Patient reports it's okay if it stays in. * Alissa Lowe RN - 07/11/2018 5:39 PM CDT Attempted report at 1707 and 1739. RN unavailable. * Minal Rodriguez PCT - 07/11/2018 3:08 PM CDT Pt ambulated to restroom with stand-by assist, steady gait. Pt states 'I just want to go home.' * Minal Rodriguez PCT - 07/11/2018 1:00 PM CDT Call light answered, pt states she has to go to the restroom. Pt states she cannot feel her legs and is unable to ambulate due to the 'numbness.' Pt instructed to lift her leg, pt unable to lift leg with leg alone. Pt used upper extremities to help lift leg. Pt tearful and reports concern for blot clot or MS. VSS. Will continue to monitor * Gilmar Ceballos RN - 07/11/2018 11:02 AM CDT Bed: [facility] Expected date: Expected time: Means of arrival: Comments: CD * Gilmar Ceballos RN - 07/11/2018 10:52 AM CDT TB Screen instructions: Complete the [...] initiate Airborne Isolation and contact provider. * Marky Faraz MELINDA Mcgraw - 07/11/2018 10:50 AM CDT HISTORY OF PRESENT ILLNESS Cairto Rausch, a 28 y.o. female presents to the ED with a Chief Complaint of Generalized Body Aches; Weakness; and Fall Subjective HPI Patient presents to the ED with reports of progressive weakness. Reports hx of Lupus, had been on longwall foreman prednisone until just recently. States that she thinks the prednisone made things worse . See's Dr Strickland for rheumatology, she states was sent to the ED for neurology evaluation. Has been unable to follow up with neurology due to lack of insurance / financial issues and states that next schedule. Is here with her grandmother and reports that patient is experiencing frequent falls. Today was unable to ambulate without assistance and fell in the shower. She denies any LOC. She is now having worsening low back pain as well as neck pain and headache. Denies any fevers or chills. Does re ports some ongoing vaginal discharge. Reports intermittent numbness and tingling in extremities andface, this has been ongoing. Upon review of charting patient has been seen seven times in the last 6 weeks. Work up this far haslargely been unremarkable other than some chronic anemia. Symptoms have been present now for over one year. REVIEW OF SYSTEMS Review of Systems Constitutional: Negative for chills and fever. HENT: Negative. Respiratory: Negative. Cardiovascular: Negative. Gastrointestinal: Positive for nausea. Negative for abdominal pain. Genitourinary: Negative. Musculoskeletal: Negative. Skin: Negative. Neurological: Positive for dizziness and weakness. Psychiatric/Behavioral: Negative for suicidal ideas. The patient is nervous/anxious. PAST MEDICAL HISTORY REVIEWED MEDICAL: Patient has [...] Objective PHYSICAL EXAM INITIAL VS BP: (!) 141/92 (07/11/18 1104), Heart Rate: 128 bpm (07/11/18 1104), Resp: 18 (07/11/18 1104), Pulse: (not recorded), Temp: 97.5 ??F (36.4 ??C) (07/11/18 1104), Temp src: Oral (07/11/18 1104), SpO2: 100 % (07/11/18 1104), Height: 5' 1 (154.9 cm) (07/11/18 1104), Weight: 63.5 kg (140 lb) (07/11/18 1104), BMI (Calculated): 26.47 (07/11/18 110) No LMP recorded. Physical Exam Constitutional: She is oriented to person, place, and time. She appears well- developed and well-nourished. No distress. HENT: Head: Normocephalic. Right Ear: External ear normal. Left Ear: External ear normal. Eyes: Pupils are equal, round, and reactive to light. Neck: Normal range of motion. Cardiovascular: Normal heart sounds. Tachycardia present. Mild tachycardia, rate 100's Pulmonary/Chest: Effort normal and breath sounds normal. Abdominal: There is no tenderness. Genitourinary: Genitourinary Comments: Moderate amount of white discharge Neurological: She is alert and oriented to person, place, and time. No sensory deficit. GCS eye subscore is 4. GCS verbal subscore is 5. GCS motor subscore is 6. Generalized weakness in extremities x 4, seems to have overall poor effort as she is moving / repositioning herself in her bed without difficutly No current sensory deficit Skin: Skin is warm. Capillary refill takes less than 2 seconds. Psychiatric: Her mood appears anxious. She expresses impulsivity. Tearful Nursing note and vitals reviewed. DIAGNOSTICS LAB: CBC WITH DIFFERENTIAL - Abnormal Result Value WBC 7.4 RBC 4.05 HEMOGLOBIN 9.6 (*) HEMATOCRIT 30.5 (*) MCV 75.4 (*) MCH 23.7 (*) MCHC 31.5 (*) RDW 18.7 (*) PLATELETS 301 MPV 8.1 (*) NEUTROPHILS 87 (*) LYMPHOCYTES 9 (*) MONOCYTES 4 EOSINOPHILS 0 BASOPHILS 0 IMMATURE GRANULOCYTES 0 NEUTROPHIL ABSOLUTE 6.40 LYMPHOCYTE ABSOLUTE 0.60 MONOCYTE ABSOLUTE 0.30 EOSINOPHIL ABSOLUTE 0.00 BASOPHILS ABSOLUTE 0.00 IMMATURE GRANULOCYTES ABSOLUTE 0.00 COMPREHENSIVE METABOLIC PANEL - Abnormal SODIUM 135 (*) POTASSIUM 4.7 CHLORIDE 103 CO2 18 (*) CALCIUM 9.4 BUN 12 CREATININE 0.66 GLUCOSE 94 TOTAL PROTEIN 7.6 ALBUMIN 3.7 BILIRUBIN TOTAL 0.3 ALKALINE PHOSPHATASE 55 AST 32 ALT 14 GFR >60 GFR, >60 ANION GAP 14 URINALYSIS WITH REFLEX CULTURE - Abnormal COLOR UA Pale Yellow CLARITY UA Slightly Cloudy (*) SPECIFIC GRAVITY UA 1.015 PH UA 9.0 (*) LEUKOCYTE ESTERASE UA Negative NITRITE UA Negative PROTEIN UA Negative GLUCOSE UA Negative KETONES UA 1+ (*) UROBILINOGEN UA Normal BILIRUBIN UA Negative BLOOD UA Negative WBC UA 6-10 (*) RBC UA 0-2 BACTERIA UA 1+ (*) EPITHELIAL CELLS, URINE 6-10 (*) HYALINE CAST None Seen Ascorbic Acid UA Negative DRUG SCREEN, URINE - Normal AMPHETAMINE QUAL, URINE Negative BARBITURATE QUAL, URINE Negative BENZODIAZEPINE QUAL, URINE Negative COCAINE QUAL URINE Negative OPIATE QUAL, URINE Negative CANNABINOIDS QUAL, URINE Negative PCP QUAL, URINE Negative OXYCODONE QUAL, URINE Negative METHADONE QUAL, URINE Negative CREATININE, URINE 80.7 HCG QUALITATIVE, BLOOD - Normal HCG QUAL, BLOOD Negative BACTERIAL VAGINOSIS/VAGINITIS PANEL BASIC GC/CHLAMYDIA, GENITAL URINE CULTURE RADIOLOGY: XR CERVICAL SPINE 4 OR 5 VIEWS Radiologist Impression IMPRESSION: Reversal of the normal cervical curve otherwise negative study. DICTATION LOCATION: Location [address] [place] [address] XR LUMBAR SPINE 4+ VW Radiologist Impression IMPRESSION: Normal lumbar spine. DICTATION LOCATION: Location [address] [place] [address] CT HEAD WO CONTRAST Radiologist Impression IMPRESSION: Normal computed tomography of the head without contrast. DICTATION LOCATION: Location [address] [place] [address] EKG: Rate 104, ST, no acute ischemic changes Results for orders placed or performed during the hospital encounter of 07/11/18 EKG 12-LEAD Result Value Ref Range VENTRICULAR RATE 104 BPM ATRIAL RATE 104 BPM P-R INTERVAL 122 ms QRS DURATION 78 ms Q-T INTERVAL 330 ms QTC CALCULATION(BEZET) 433 ms P AXIS 36 degrees R AXIS 40 degrees T AXIS 19 degrees RESULT Sinus tachycardia Nonspecific ST abnormality Abnormal ECG When compared with ECG of 23-JUN-2018 12:33, No significant change was found Bedside superior court judge rate 100's Pulse oximetry on room air is 100. PROCEDURES Procedures MEDICAL DECISION MAKING AND PLAN OF CARE ED Course as of July 11 1457 Rachel July 11, 2018 1422 Consulted with PCP, Dr Dangelo. Aware of work-up. He has seen in clinic multiple times as well. Essentially negative work up outpatient. If admitted for neuro consult, is requesting psych consult as well. [LM] 1440 Consulted with [facility]. Aware of work up and plan to admit. Neuro consult still pending. [LM] [address] Kee. Aware of plan to work up and request for consult while patient is admitted. [LM] ED Course User Index [LM] Faraz Negro FNP MDM Diagnostic Considerations: Ddx : psychosomatic, Fibromyalgia, MS, anxiety I have reviewed current: labs, imaging and ECG Labs: Chronic anemia I have reviewed nursing notes related to past medical history, social history, and review of systems and agree, unless otherwise noted. Clinical Course: Patient arrives emergency department she is tearful and anxious. Vital signs reviewed, she was mildly tachycardic on arrival but otherwise acceptable. She is afebrile. Physical exam is largely noncontributory. She has some generalized weakness of all extremities however this seems more effort basedthen true neurological finding. Patient states that she is unable to walk although she is moving her legs purposefully in the bed. Labs and imaging obtained. Labs : stable. + chronic anemia Imaging. CT head negative. Xray negative for acute findings. Awaiting vaginitis panel. Consulted with PCP, hospitalist and neurology. Plan to admit for neuro consult / work-up. PT/OT eval and treat for generalized weakness. Patient agreeable to plan. Denies further needs prior to admission Medications Administered During the ED Stay from 07/11/2018 1050 to 07/11/2018 1457 Date/Time Order Dose Route Action 07/11/2018 1412 sodium chloride 0.9% bolus solution 1,000 mL 0 mL IV Stopped 07/11/2018 1145 sodium chloride 0.9% bolus solution 1,000 mL 1,000 mL IV New Bag 07/11/2018 1429 traMADol (ULTRAM) tablet 50 mg 50 mg Oral Given . New Prescriptions for this Encounter LAST VS BP: 132/84 (07/11/18 1438), Heart Rate: 103 bpm (07/11/18 1438), Resp: 18 (07/11/18 1438), Pulse: (not recorded), Temp: 97.5 ??F (36.4 ??C) (07/11/18 1104), Temp src: Oral (07/11/18 1104), SpO2: 100 % (07/11/18 1104) CLINICAL IMPRESSION Final diagnoses: [R53.1] Generalized weakness (Primary) [R29.6] Frequent falls DISPOSITION, EDUCATION AND MEDICATION RECONCILIATION Medications reconciled. See after visit summary for patient education on discharged patients. ED Disposition ED Disposition Condition User Date/Time Comment Admit Stable Faraz Negro FNP Rachel July 11, 2018 2:30 PM ATTESTATION STATEMENTS documented in this encounter Miscellaneous Notes * Therapy Evaluation - Rose Mary Perry, Physical Therapist - 07/12/2018 1:17 PM CDT PT orders received and nursing reports pt is up ad mikayla walking hallways and has returned to baseline per pt report. Patient presents at prior level of function. No skilled inpatient physical therapy service indicated at this time as patient is baseline for all functional mobility. RN notified. Rose Mary Perry P.T. Ascom [phone] * Care Plan - Ann Valdez - 07/12/2018 11:02 AM CDT CRC met with patient regarding PCP establishment, patient informed CRC they have a PCP, Huseyin Dangelo, and they have an appointment scheduled with him. This information has been added to Care Teams, no further assistance needed by CRC. Ann Valdez [employer] Assistant [phone] * Care Plan - Kevin Warren LCSW - 07/12/2018 10:03 AM CDT Problem: Discharge Planning Goal: Identify discharge needs upon admission and through discharge Description Outcome: Progressing Clinical documentation reviewed. Comprehensive Discharge Planning Assessment was completed. Total Score of 9 or below does not identify immediate needs for discharge. Age Score: 0 Disability Score: 0 Prior Living Status Score: {0 Mobility Limitation Score: 3 TOTAL SCORE: 3 Readmission Risk (patient becomes high risk with a score of 8 or greater) 6 Total Score 1 Osteoporosis [address] consult if needs for discharge are identified. Pt resides home with family, recent increase of falls. CRC to see pt regarding no insurance and follow-up of outpatient resources. Care Management will continue to follow for discharge planning. Kevin Warren LCSW/OLEG Care Management [phone] * Care Plan - Shima Evangelista RN - 07/12/2018 9:42 AM CDT 0700-report received at bedside. Pt resting eyes closed, no distress noted. Call light in reach. 0830-pt up to shower, no distress noted. Pt steady on feet. 0945-medications per MAR, pt up ambulating hallway and rooom occassional. Anxious. offerd support all needs met. Call light in reach. Assessment charted per flowsheet. Pt states discomfort in legs isbetter today, but has noticed her arms hurt more today. Ibuprofen given per Apr. All needs met. Call light in reach. Pt updated on POC. 1130-pt anxious, ambulating hallway. Wants to go home today. Offered support. 1555-pt to MRI via wheelchair. No distress. 1640-returned back from MRI, no distress 1745-pt asking for something for pain, refusing to take baclofen d/t side effects, offered tylenol.Pt updated and will be discharged home. 1810-discharge instructions medications, teaching and handouts reviewed with pt and family. All questions answered at this time. 1820-discharged home ambulatory to lobby with friend, no distress. * Care Plan - Mady Coleman RN - 07/11/2018 6:49 PM CDT 175-ER handoff report received from PRO Maxwell. 1817-Patient arrived to room 7104. Assessment completed per flow sheet. Patient oriented room, calllight within reach, bed alarm on. No further needs at this time. documented in this encounter Plan of Treatment Not on file documented as of this encounter Procedures Procedure Name Priority Date/Time Associated Diagnosis Comments MRI BRAIN WO CONTRAST Routine 07/12/2018 4:56 PM CDT OT EVAL AND TREAT Stat 07/11/2018 3:0 0 PM CDT PT EVAL AND TREAT Stat 07/11/2018 3:0 0 PM CDT OT EVAL AND TREAT Stat 07/11/2018 3:0 0 PM CDT PT EVAL AND TREAT Stat 07/11/2018 3:0 0 PM CDT VAGINOSIS/VAGINITIS PANEL BASIC Stat 07/11/2018 2:36 PM CDT GC/CHLAMYDIA, GENITAL Stat 07/11/2018 2:36 PM CDT CBC WITH DIFFERENTIAL Stat 07/11/2018 1:07 PM CDT URINALYSIS WITH REFLEX CULTURE Stat 07/11/2018 12:59 PM CDT DRUG SCREEN, URINE Stat 07/11/2018 12 :59 PM CDT URINE CULTURE Stat 07/11/2018 12:59 PM CDT XR CERVICAL SPINE 4 OR 5 VIEWS Stat 07/11/2018 12:39 PM CDT XR LUMBAR SPINE 4+ VW Stat 07/11/2018 12:[address] HEAD WO CONTRAST Stat 07/11/2018 1 2:14 PM CDT HCG QUALITATIVE, SERUM Stat 9 11:59 AM CDT COMPREHENSIVE METABOLIC PANEL Stat 07/11/2018 11:59 AM CDT EKG 12-LEAD Stat 07/11/2018 11:01 AM CDT documented in this encounter Results * MRI BRAIN WO CONTRAST (07/12/2018 4:56 PM CDT) Anatomical Region Laterality Modality Head Magnetic Resonan ce 07/12/2018 4:56 PM CDT Impressions 07/12/2018 5:13 PM CDT IMPRESSION: 1. Motion artifact. 2. No evidence of acute intracranial changes. DICTATION LOCATION: Location [address] [place] [address] 07/12/2018 5:13 PM CDT MRI OF THE BRAIN WITHOUT CONTRAST DATE: 07/12/2018 4:56 PM CLINICAL HISTORY: Ataxia. Weakness. Tingling in the feet. TECHNIQUE: MRI examination of the brain is performed in routine pulsing sequences without the use of contrast. FINDINGS: Motion artifact is seen on multiple pulsing sequences. The fourth ventricle lies in a normal midline position. The ventricles and sulci are within normal limits. There is no hypointense or hyperintense mass or midline shift. There is no abnormal signal intensity on the diffusion-weighted images to suggest an area of acute ischemia. The posterior fossa and pituitary gland are unremarkable. The intracranial vessels appear patent. The examination is limited by the extent of motion. Procedure Note Jairon, Moose, MD - 07/12/2018 MRI OF THE BRAIN WITHOUT CONTRAST DATE: 07/12/2018 4:56 PM CLINICAL HISTORY: Ataxia. Weakness. Tingling in the feet. TECHNIQUE: MRI examination of the brain is performed in routine pulsing sequences without the use of contrast. FINDINGS: Motion artifact is seen on multiple pulsing sequences. The fourth ventricle lies in a normal midline position. The ventricles and sulci are within normal limits. There is no hypointense or hyperintense mass or midline shift. There is no abnormal signal intensity on the diffusion-weighted images to suggest an area of acute ischemia. The posterior fossa and pituitary gland are unremarkable. The intracranial vessels appear patent. The examination is limited by the extent of motion. IMPRESSION: 1. Motion artifact. 2. No evidence of acute intracranial changes. DICTATION LOCATION: [address] Sherry Chavez [facility] MR ORDERABLES * GC/CHLAMYDIA, GENITAL (07/11/2018 2:36 PM CDT) CHLAMYDIA DNA AMPLIFICATION NOT DETECTED Not Detected 07/11/2018 9:17 PM CDT [facility] GC DNA AMPLIFICATION NOT DETECTED Not Detected 07/11/2018 9:17 PM CDT [facility] Genital SWAB OF ENDOCERVIX / Unknown Collection / Unknown 07/11/2018 2:36 PM CDT 07/11/2018 2:36 PM CDT Narrative [facility] - 07/11/2018 9:17 PM CDT Results should not be used for the evaluation of suspected sexual abuse or for other medico-legal indications. The only legally accepted results are from culture. Results cannot be used to assess therapeutic success or failure since nucleic acids may persist following antimicrobial therapy. Faraz Negro [facility] MICRO - GEN ORDER ANAHI COM [facility] CLIA# [id number] [place] [address] * (ABNORMAL) BACTERIAL VAGINOSIS/VAGINITIS PANEL BASIC (07/11/2018 2:36 PM CDT) BRUCE SPECIES Positive(A) Negative 07/12/19 3:52 PM CDT [facility] GARDNERELLA VAGINALIS Negative Negative 07/11/2018 3:52 PM CDT [facility] TRICHOMONAS VAGINALIS Negative Negative 07/11/2018 3:52 PM CDT [facility] Genital SPECIMEN FROM VAGINA / Unknown Collection / Unknown 07/11/2018 2:36 PM CDT 07/11/2018 2:36 PM CDT Faraz Mcgraw Marky [facility] MICROBIOLOGY - [facility] ORDERABLES [facility] CLIA# [id number] [place] [address] * (ABNORMAL) CBC WITH DIFFERENTIAL (07/11/2018 1:07 PM CDT) Pathologist [facility] WBC 7.4 4.5 - 10.5 K/uL 07/11/2018 1:53 PM CDT [facility] RBC 4.05 3.90 - 4.90 M/uL 07/11/2018 1:53 PM CDT [facility] HEMOGLOBIN 9.6(L) 11.8 - 14.8 g/dL 07/11/2018 1:53 PM CDT [facility] HEMATOCRIT 30.5(L) 35.5 - 44.0 % 07/11/2018 1:53 PM CDT [facility] MCV 75.4(L) 82.0 - 99.0 fL 07/11/2018 1:53 PM CDT [facility] MCH 23.7(L) 27.8 - 34.5 pg 07/11/2018 1:53 PM CDT [facility] MCHC 31.5(L) 32.5 - 35.5 g/dL 07/11/2018 1:53 PM CDT [facility] RDW 18.7(H) 11.5 - 14.5 % 07/11/2018 1:53 PM CDT [facility] PLATELETS 301 160 - 420 K/uL 07/11/2018 1:53 PM CDT [facility] MPV 8.1(L) 8.7 - 12.7 fL 07/11/2018 1:53 PM CDT [facility] NEUTROPHILS 87(H) 45 - 70 % 07/11/2018 1:53 PM CDT [facility] LYMPHOCYTES 9(L) 16 - 45 % 07/11/2018 1:53 PM CDT [facility] MONOCYTES 4 3 - 13 % 07/11/2018 1:53 PM CDT [facility] EOSINOPHILS 0 0 - 7 % 07/11/2018 1:53 PM CDT [facility] BASOPHILS 0 0 - 2 % 07/11/2018 1:53 PM CDT [facility] IMMATURE GRANULOCYTES 0 0 - 5 % 07/11/2018 1:53 PM CDT [facility] NEUTROPHIL ABSOLUTE 6.40 1.90 - 7.00 K/uL 07/11/2018 1:53 PM CDT [facility] LYMPHOCYTE ABSOLUTE 0.60 K/uL 07/11/2018 1:53 PM CDT [facility] MONOCYTE ABSOLUTE 0.30 K/uL 019 1:53 PM CDT [facility] EOSINOPHIL ABSOLUTE 0.00 0.00 - 0.70 K/uL 07/11/2018 1:53 PM CDT [facility] BASOPHILS ABSOLUTE 0.00 K/uL 07/11/2018 1:53 PM CDT [facility] IMMATURE GRANULOCYTES ABSOLUTE 0.00 K/uL 07/11/2018 1:53 PM CDT [facility] Blood Venipuncture / Unknown 07/11/2018 1:07 PM CDT 07/11/2018 1:50 PM CDT Faraz Mcgraw Mo BUSINESS PROJECT MANAGER HEMATOLOGY [id number] [place] [address] * URINE CULTURE (07/11/2018 12:59 PM CDT) CULTURE No growth at 24 hours 07/12/2018 3:30 PM CDT [facility] Urine URINE SPECIMEN OBTAINED BY CLEAN CATCH PROCEDURE / Unknown Collection / Unknown 07/11/2018 12:59 PM CDT 07/11/2018 1:17 PM CDT Faraz Mcgraw Marky BUSINESS PROJECT MANAGER MICROBIOLOGY - [facility] ORDERABLES [facility]# [id number] [address] [place] [address] * DRUG SCREEN, URINE (07/11/2018 12:59 PM CDT) AMPHETAMINE QUAL, URINE Negative Negative 07/11/2018 1:44 PM CDT [facility] - [facility] BARBITURATE QUAL, URINE Negative Negative 07/11/2018 1:44 PM CDT [facility] BENZODIAZEPINE QUAL, URINE Negative Negative 07/11/2018 1:44 PM CDT [facility] COCAINE QUAL URINE Negative Negative 2018 1:44 PM CDT [facility] OPIATE QUAL, URINE Negative Negative 2018 1:44 PM CDT [facility] CANNABINOIDS QUAL, URINE Negative Negative 07/11/2018 1:44 PM CDT [facility] PCP QUAL, URINE Negative Negative 9 1:44 PM CDT [facility] OXYCODONE QUAL, URINE Negative Negative 07/11/2018 1:44 PM CDT [facility] METHADONE QUAL, URINE Negative Negative 07/11/2018 1:44 PM CDT [facility] CREATININE, URINE 80.7 29.0 - 226.0 mg/dL 07/11/2018 1:44 PM CDT [facility] Comment: Reference Range varies with fluid intake and diet. Urine URINE SPECIMEN OBTAINED BY CLEAN CATCH PROCEDURE / Unknown Collection / Unknown 07/11/2018 12:59 PM CDT 07/11/2018 12:59 PM CDT Faraz Negro BUSINESS PROJECT MANAGER URINE ORDERABLES [facility] CLIA# [id number] [place] [address] * (ABNORMAL) URINALYSIS WITH REFLEX CULTURE (07/11/2018 12:59 PM CDT) COLOR UA Pale Yellow Pale to Dark Yellow 07/11/2018 1:17 PM CDT [facility] CLARITY UA Slightly Cloudy(A) Clear 07/11/2018 1:17 PM CDT [facility] SPECIFIC GRAVITY UA 1.015 1.003 - 1.035 07/11/2018 1:17 PM CDT [facility] PH UA 9.0(A) 5.0 - 8.0 07/11/2018 1:17 PM CDT [facility] LEUKOCYTE ESTERASE UA Negative Negative 07/11/2018 1:17 PM CDT [facility] NITRITE UA Negative Negative 07/11/2018 1:17 PM CDT [facility] PROTEIN UA Negative Negative 07/11/2018 1:17 PM CDT [facility] GLUCOSE UA Negative Negative 07/11/2018 1:17 PM CDT [facility] KETONES UA 1+(A) Negative 07/11/2018 1:17 PM CDT [facility] UROBILINOGEN UA Normal <2.0 mg/dL 9 1:17 PM CDT [facility] BILIRUBIN UA Negative Negative 07/11/2018 1:17 PM CDT [facility] BLOOD UA Negative Negative 07/11/2018 1:17 PM CDT [facility] WBC UA 6-10(A) 0 - 2 /hpf 07/11/2018 1:17 PM CDT [facility] RBC UA 0-2 0 - 2 /hpf 07/11/2018 1:17 PM CDT [facility] BACTERIA UA 1+(A) Negative /hpf 07/11/2018 1:17 PM CDT [facility] EPITHELIAL CELLS, URINE 6-10(A) 0 - 5 /hpf 07/11/2018 1:17 PM CDT [facility] HYALINE CAST None Seen None Seen, 0-2 /lpf 07/11/2018 1:17 PM CDT [facility] Ascorbic Acid UA Negative Negative 07/12/19 19 1:17 PM CDT [facility] Urine URINE SPECIMEN OBTAINED BY CLEAN CATCH PROCEDURE / Unknown Collection / Unknown 07/11/2018 12:59 PM CDT 07/11/2018 12:59 PM CDT Narrative [facility] - 07/11/2018 1:17 PM CDT Based on results, a urine culture has been reflexed. Faraz Mcgraw Marky BUSINESS PROJECT MANAGER URINE ORDERABLES [facility] CLIA# [id number] [place] [address] * XR CERVICAL SPINE 4 OR 5 VIEWS (07/11/2018 12:39 PM CDT) Anatomical Region Laterality Modality Spine Computed Radiogr aphy 07/11/2018 12:4 0 PM CDT Impressions 07/11/2018 2:18 PM CDT IMPRESSION: ?? Reversal of the normal cervical curve otherwise negative study. DICTATION LOCATION: Location 7 - [facility] Narrative 07/11/2018 2:18 PM CDT CERVICAL SPINE 4 VIEWS DATE: ??07/11/2018 12:39 PM HISTORY: Pain. COMPARISON: No prior studies are available for comparison two days earlier. TECHNIQUE: ??AP, open mouth, lateral and swimmers. FINDINGS: ??The normal cervical curve is reversed. There is no fracture or lysis. ??The C1-2 articulation is normal. Disc and vertebral body heights are normal. ??The neural foramen are widely patent. Procedure Note Antonio Davis MD - 07/11/2018 CERVICAL SPINE 4 VIEWS DATE: 07/11/2018 12:39 PM HISTORY: Pain. COMPARISON: No prior studies are available for comparison two days earlier. TECHNIQUE: AP, open mouth, lateral and swimmers. FINDINGS: The normal cervical curve is reversed. There is no fracture or lysis. The C1-2 articulation is normal. Disc and vertebral body heights are normal. The neural foramen are widely patent. IMPRESSION: Reversal of the normal cervical curve otherwise negative study. DICTATION LOCATION: [address] Faraz Mcgraw Mokiara BUSINESS PROJECT MANAGER DIAGNOSTIC IMAGIN G ORDERABLES * XR LUMBAR SPINE 4+ VW (07/11/2018 12:39 PM CDT) Anatomical Region Laterality Modality Spine Computed Radiogr aphy 07/11/2018 12:3 9 PM CDT Impressions 07/11/2018 2:18 PM CDT IMPRESSION: ?? Normal lumbar spine. DICTATION LOCATION: [address] Narrative 07/11/2018 2:18 PM CDT LUMBAR SPINE - FIVE VIEWS DATE: ??07/11/2018 12:39 PM HISTORY: Low back pain. COMPARISON: November 13, 2016. FINDINGS: ??Examination of the lumbar spine, and lumbosacral and sacroiliac areas in AP, oblique and lateral projections to include a lateral film of the L5-S1 articulation and the sacrum, fails to reveal the presence of fracture or dislocation. ??The vertebral bodies are normally aligned. ??The interspaces are of average width. The visualized bone density and architecture are within normal limits. There is no evidence of spondylosis or spondylolisthesis. Procedure Note Antonio Davis MD - 07/11/2018 LUMBAR SPINE - FIVE VIEWS DATE: 07/11/2018 12:39 PM HISTORY: Low back pain. COMPARISON: November 13, 2016. FINDINGS: Examination of the lumbar spine, and lumbosacral and sacroiliac areas in AP, oblique and lateral projections to include a lateral film of the L5-S1 articulation and the sacrum, fails to reveal the presence of fracture or dislocation. The vertebral bodies are normally aligned. The interspaces are of average width. The visualized bone density and architecture are within normal limits. There is no evidence of spondylosis or spondylolisthesis. IMPRESSION: Normal lumbar spine. DICTATION LOCATION: [address] Faraz Negro BUSINESS PROJECT MANAGER DIAGNOSTIC IMAGIN G ORDERABLES * CT HEAD WO CONTRAST (07/11/2018 12:14 PM CDT) Anatomical Region Laterality Modality Head Computed Tomogra phy 07/11/2018 12:1 4 PM CDT Impressions 07/11/2018 2:17 PM CDT IMPRESSION: ?? Normal computed tomography of the head without contrast. DICTATION LOCATION: [address] Narrative 07/11/2018 2:[address] HEAD WITHOUT CONTRAST DATE: ??07/11/2018 12:14 PM HISTORY: Headache, post traumatic; recurrent falls. COMPARISON: No prior studies are available for comparison. TECHNIQUE: ??Helical axial CT was performed without contrast from the skull base to the vertex. The examination was performed with the adjustment of mA according to the patient size and/or use of Iterative Reconstruction Technique. FINDINGS: ??The tejeda and white matter appear normal. ??The ventricular size is acceptable for the age. ??The cisterns and sulci are normal. There is no shift or mass lesion. ??There is no subdural or epidural hematoma. ??Bone windows appear normal. Procedure Note Antonio Davis MD - 07/11/2018 CT HEAD WITHOUT CONTRAST DATE: 07/11/2018 12:14 PM HISTORY: Headache, post traumatic; recurrent falls. COMPARISON: No prior studies are available for comparison. TECHNIQUE: Helical axial CT was performed without contrast from the skull base to the vertex. The examination was performed with the adjustment of mA according to the patient size and/or use of Iterative Reconstruction Technique. FINDINGS: The tejeda and white matter appear normal. The ventricular size is acceptable for the age. The cisterns and sulci are normal. There is no shift or mass lesion. There is no subdural or epidural hematoma. Bone windows appear normal. IMPRESSION: Normal computed tomography of the head without contrast. DICTATION LOCATION: Location 7 - [facility] Faraz Negro BUSINESS PROJECT MANAGER CT ORDERABLES * HCG QUALITATIVE, BLOOD (07/11/2018 11:59 AM CDT) HCG QUAL, BLOOD Negative Negative 07/11/2018 12:48 PM CDT [facility] Blood Venipuncture / Unknown 07/11/2018 11:59 AM CDT 07/11/2018 11:59 AM CDT Faraz Negro BUSINESS PROJECT MANAGER CHEMISTRY ORDERAB LES [facility] CLIA# [id number] [place] [address] * (ABNORMAL) COMPREHENSIVE METABOLIC PANEL (07/11/2018 11:59 AM CDT) Pathologist [facility] SODIUM 135(L) 136 - 145 mmol/L 07/11/2018 1:02 PM T [facility] POTASSIUM 4.7 3.4 - 5.1 mmol/L 07/11/2018 1:02 PM T [facility] Comment:Moderate hemolysis. Result may be falsely elevated. CHLORIDE 103 98 - 107 mmol/L 07/11/2018 1:02 PM T [facility] CO2 18(L) 22 - 29 mmol/L 07/11/2018 1:02 PM CDT [facility] CALCIUM 9.4 8.6 - 10.4 mg/dL 07/11/2018 1:02 PM CDT [facility] Chlorogen [facility] BUN 12 6 - 20 mg/dL 07/11/2018 1:02 PM T [facility] CREATININE 0.66 0.50 - 1.00 mg/dL 07/11/2018 1:02 PM T [facility] GLUCOSE 94 74 - 99 mg/dL 07/11/2018 1:02 PM [facility] [place] [place] TOTAL PROTEIN 7.6 6.3 - 8.7 g/dL 07/11/2018 1:02 PM [facility] [place] [place] ALBUMIN 3.7 3.5 - 5.2 g/dL 07/11/2018 1:02 PM [facility] [place] [place] BILIRUBIN TOTAL 0.3 0.2 - 1.3 mg/dL 07/11/2018 1:02 PM [facility] [place] [place] ALKALINE PHOSPHATASE 55 40 - 150 U/L 07/11/2018 1:02 PM [facility] [place] [place] AST 32 0 - 33 U/L 07/11/2018 1:02 PM [facility] [place] [place] Comment:Hemolysis present. R esult may be falsely elevated. ALT 14 0 - 33 U/L 07/11/2018 1:02 PM [facility] [place] [place] Comment:Hemolysis present. R esult may be falsely elevated. GFR >60 >=60 mL/min/1.7 3 sq meter 07/11/2018 1:02 PM [facility] [place] [place] Comment: eGFR has not been validated for [...] GFR, >60 >=60 mL/min/1.7 3 sq meter 07/11/2018 1:02 PM T [facility] ANION GAP 14 8 - 16 mmol/L 07/11/2018 1:02 PM [facility] [place] [place] Blood Venipuncture / Unknown 07/11/2018 11:59 AM CDT 07/11/2018 11:59 AM CDT Faraz Negro BUSINESS PROJECT MANAGER CHEMISTRY ORDERAB LES [facility] CLIA# [id number] [place] [address] * EKG 12-LEAD (07/11/2018 11:01 AM CDT) VENTRICULAR RATE 104 BPM INTERFACE SYSTEM ATRIAL RATE 104 BPM INTERFAC E SYSTEM P-R INTERVAL 122 ms INTERFA CE SYSTEM QRS DURATION 78 ms INTERFA CE SYSTEM Q-T INTERVAL 330 ms INTERFA CE SYSTEM QTC CALCULATION(BEZ ET) 433 ms INTERFACE SYSTEM P AXIS 36 degrees INTERFACE SYSTEM R AXIS 40 degrees INTERFACE SYSTEM T AXIS 19 degrees INTERFACE SYSTEM RESULT Sinus tachycardia Nonspecific ST abnormality Abnormal ECG When compared with ECG of 23-JUN-2018 12:33, No significant change was found Confirmed by ANUEL BOLDEN ([id number]) on 07/11/2018 3:17:30 PM INTERFACE SYSTEM 07/11/2018 11:0 1 AM CDT 07/11/2018 3:17 PM CDT Angela Lobo MD ECG ORDERABLES INTERFACE SYSTEM Refer to clinic/hospital department documented in this encounter Visit Diagnoses Diagnosis Generalized weakness- Primary Other malaise and fatigue Frequent falls Personal history of fall Myalgia, unspecified site Arthralgia Pain in joint, site unspecified Weakness Other malaise and fatigue Lupus Systemic lupus erythematosus documented in this encounter Administered Medications Inactive Administered Medications - up to 3 most recent administrations Medication Order MAR Action Action Date Dose Rate Site acetaminophen (TYLENOL) tablet 650 mg 650 mg, Oral, EVERY 4 HOURS PRN, Starting on Sun07/11/18 at 1500, Until Sun07/12/18 at 2028, Pain, Mild / Temperature, temp >100, Routine aluminum - magnesium - simethicone (MYLANTA) 200-200-20 mg/5 mL oral suspension 10 mL 10 mL, Oral, EVERY 6 HOURS PRN, Starting on Sun07/11/18 at 1500, Until Sun07/12/18 at 2028, Gas, Indigestion, Routine baclofen (LIORESAL) tablet 10 mg 10 mg, Oral, EVERY 8 HOURS PRN, Starting on Sun07/11/18 at 2128, Until Sun07/12/18 at 2028, Other (See Comment), muscle spasms or pain, Routine oymemnpelt-cumxxzu-xodvjyaricthi (CEPACOL) lozenge 1 Each 1 Each, Mouth/Throat, EVERY 1 HOUR PRN, Starting on Sun07/11/18 at 1500, Until Sun07/12/18 at 2028, Sore Throat, Routine bisacodyl (DULCOLAX) rectal suppository 10 mg 10 mg, Rectal, DAILY PRN, Starting on Sun07/11/18 at 1500, Until Sun07/12/18 at 2028, Constipation, Routine calcium as carbonate (TUMS) 500 mg (200 mg elemental) chewable tablet 200 mg 200 mg, Oral, EVERY 6 HOURS PRN, Starting on Sun07/11/18 at 1500, Until Sun07/12/18 at 2028, Dyspepsia, Routine dextromethorphan-guaiFENesin 10-100 mg/5 mL oral liquid 10 mL, Oral, EVERY 4 HOURS PRN, Starting on Sun07/11/18 at 1500, Until Sun07/12/18 at 2028, Cough, Routine diphenhydrAMINE (BENADRYL) tablet 25 mg 25 mg, Oral, NIGHTLY PRN, Starting on Sun07/11/18 at 1500, Until Sun07/12/18 at 2028, Allergies, Insomnia, Itching, Routine enoxaparin (LOVENOX) injection 40 mg 40 mg, subCUT, EVERY 24 HOURS, First dose on Sun07/11/18 at 1600, Until Discontinued, Routine, Indication: Prophylaxis of VTE, Dose to be adjusted per facility protocol? Yes fluconazole (DIFLUCAN) tablet 200 mg 200 mg, Oral, ONE TIME ONLY, 1 dose, On Sun07/12/18 at 1345, Routine, Antibiotic Indication: Other: Enter in Comments, Antibiotic Indication: brcue Given 07/12/2018 3:37 PM CDT 200 mg hydrALAZINE (APRESOLINE) 20 mg/mL injection 10 mg 10 mg, IV, EVERY 6 HOURS PRN, Starting on Sun07/11/18 at 1500, Until Sun07/12/18 at 2028, Blood Pressure, Other (See Comment), sbp >160, Routine ibuprofen (MOTRIN) tablet 800 mg 800 mg, Oral, EVERY 8 HOURS PRN, Starting on Sun07/11/18 at 2128, Until Sun07/12/18 at 2028, Pain, Mild, Routine Given 07/12/2018 9:49 AM CDT 600 mg Given 07/12/2018 9:38 AM CDT 200 mg Given 07/11/2018 11:07 PM CDT 800 mg ipratropium-albuterol (DUONEB) 0.5 mg-3 mg(2.5 mg base)/3 mL inhalation solution 3 mL 3 mL, Inhalation, EVERY 6 HOURS PRN RESPIRATORY, Starting on Sun07/11/18 at 1500, Until Sun07/12/18 at 2028, Shortness of Breath, Wheezing, Routine LORazepam (ATIVAN) tablet 1 mg 1 mg, Oral, ONE TIME PRN, 1 dose, Starting on Sun07/11/18 at 2109, Until Sun07/12/18 at 2028, Other (See Comment), before MRI, Routine naloxone (NARCAN) 0.4 mg/mL injection 0.1 mg 0.1 mg, IV, SEE ADMIN INSTRUCTIONS, Starting on Sun07/11/18 at 1500, Until Sun07/12/18 at 2028, Routine ondansetron (ZOFRAN ODT) tablet 4 mg 4 mg, Oral, EVERY 8 HOURS PRN, Starting on Sun07/11/18 at 1500, Until Sun07/12/18 at 2028, Nausea/Emesis, Routine prochlorperazine (COMPAZINE) injection 10 mg 10 mg, IV, EVERY 6 HOURS PRN, Starting on Sun07/11/18 at 1500, Until Sun07/12/18 at 2028, Nausea/Emesis, Routine sennosides-docusate sodium (SENNA-S) 8.6-50 mg per tablet 1 Tablet 1 Tablet, Oral, DAILY PRN, Starting on Sun07/11/18 at 1500, Until Sun07/12/18 at 2028, Constipation, Routine sodium chloride (OCEAN) 0.65 % nasal soln 2 Sanford 2 Sanford, Both Nostrils, EVERY 15 MINUTES PRN, Starting on Sun07/11/18 at 1500, Until Sun07/12/18 at 2028, Allergies, Congestion, Routine sodium chloride 0.9% bolus solution 1,000 mL 1,000 mL, IV, ONE TIME ONLY, 1 dose, On Sun07/11/18 at 1145, at 2,000 mL/hr, Administer over 30 Minutes, Routine New Bag 07/11/2018 11:45 AM CDT 1,000 mL 2000 mL/hr sodium chloride 0.9% infusion IV, at 100 mL/hr, CONTINUOUS, Starting on Rachel 07/11/18 at 1515, Until Sun07/11/18 at 2102, Routine New Bag 07/11/2018 8:25 PM CDT 100 mL/hr traMADol (ULTRAM) tablet 50 mg 50 mg, Oral, ONE TIME ONLY, 1 dose, On Rachel 07/11/18 at 1415, Stat Given 07/11/2018 2:29 PM CDT 50 mg documented in this encounter Active and Recently Administered Medications Times are shown in CDT. Scheduled Medication Order 07/10/2018 07/11/2018 07/12/2018 enoxaparin (LOVENOX) injection 40 mg 40 mg, subCUT, EVERY 24 HOURS, First dose on Rachel 07/11/18 at 1600, Until Discontinued, Routine, Indication: Prophylaxis of VTE, Dose to be adjusted per facility protocol? Yes 1600 (Not Given - Provider: Mady Coleman RN - Reason: Patient off unit) 1600 (Refused - Provider: Shima Evangelista, PRO) fluconazole (DIFLUCAN) tablet 200 mg (COMPLETED) 200 mg, Oral, ONE TIME ONLY, 1 dose, On Sun07/12/18 at 1345, Routine, Antibiotic Indication: Other: Enter in Comments, Antibiotic Indication: bruce 1537 (Given - Provid er: Shima Evangelista, PRO) naloxone (NARCAN) 0.4 mg/mL injection 0.1 mg 0.1 mg, IV, SEE ADMIN INSTRUCTIONS, Starting on Rachel 07/11/18 at 1500, Until Sun07/12/18 at 2028, Routine naloxone (NARCAN) 0.4 mg/mL injection 0.1 mg 0.1 mg, IV, SEE ADMIN INSTRUCTIONS, Starting on Rachel 07/11/18 at 1500, Until Sun07/12/18 at 2028, Routine sodium chloride 0.9% bolus solution 1,000 mL (COMPLETED) 1,000 mL, IV, ONE TIME ONLY, 1 dose, On Rachel 07/11/18 at 1145, at 2,000 mL/hr, Administer over 30 Minutes, Routine 1145 (New Bag - Provider: Minal Rodriguez JAMAR)1412 (Stopped - Provider: JAMAR Rene) traMADol (ULTRAM) tablet 50 mg (COMPLETED) 50 mg, Oral, ONE TIME ONLY, 1 dose, On Rachel 07/11/18 at 1415, Stat 1429 (Given - Provider: JAMAR Rene) Continuous Medication Order 07/10/2018 07/11/2018 07/12/2018 sodium chloride 0.9% infusion (CANCELED) IV, at 100 mL/hr, CONTINUOUS, Starting on Rachel 07/11/18 at 1515, Until Sun07/11/18 at 2102, Routine 2024 (New Bag - Provider: Katerine Pastrana, RN)2029 (Stopped - Provider: Katerine Pastrana RN) PRN Medication Order 07/10/2018 07/11/2018 07/12/2018 acetaminophen (TYLENOL) tablet 650 mg 650 mg, Oral, EVERY 4 HOURS PRN, Starting on Rachel 07/11/18 at 1500, Until Sun07/12/18 at 2028, Pain, Mild / Temperature, temp >100, Routine aluminum - magnesium - simethicone (MYLANTA) 200-200-20 mg/5 mL oral suspension 10 mL 10 mL, Oral, EVERY 6 HOURS PRN, Starting on Sun07/11/18 at 1500, Until Sun07/12/18 at 2028, Gas, Indigestion, Routine baclofen (LIORESAL) tablet 10 mg 10 mg, Oral, EVERY 8 HOURS PRN, Starting on Rachel 07/11/18 at 2128, Until Sun07/12/18 at 2028, Other (See Comment), muscle spasms or pain, Routine yqnjdchywh-ktsudnd-gclifvq ridine (CEPACOL) lozenge 1 Each 1 Each, Mouth/Throat, EVERY 1 HOUR PRN, Starting on Rachel 07/11/18 at 1500, Until Sun07/12/18 at 2028, Sore Throat, Routine bisacodyl (DULCOLAX) rectal suppository 10 mg 10 mg, Rectal, DAILY PRN, Starting on Rachel 07/11/18 at 1500, Until Sun07/12/18 at 2028, Constipation, Routine calcium as carbonate (TUMS) 500 mg (200 mg elemental) chewable tablet 200 mg 200 mg, Oral, EVERY 6 HOURS PRN, Starting on Sun07/11/18 at 1500, Until Sun07/12/18 at 2028, Dyspepsia, Routine dextromethorphan-guaiFENes in 10-100 mg/5 mL oral liquid 10 mL, Oral, EVERY 4 HOURS PRN, Starting on Sun07/11/18 at 1500, Until Sun07/12/18 at 2028, Cough, Routine diphenhydrAMINE (BENADRYL) tablet 25 mg 25 mg, Oral, NIGHTLY PRN, Starting on Sun07/11/18 at 1500, Until Sun07/12/18 at 2028, Allergies, Insomnia, Itching, Routine hydrALAZINE (APRESOLINE) 20 mg/mL injection 10 mg 10 mg, IV, EVERY 6 HOURS PRN, Starting on Sun07/11/18 at 1500, Until Sun07/12/18 at 2028, Blood Pressure, Other (See Comment), sbp >160, Routine ibuprofen (MOTRIN) tablet 800 mg 800 mg, Oral, EVERY 8 HOURS PRN, Starting on Sun07/11/18 at 2128, Until Sun07/12/18 at 2028, Pain, Mild, Routine 2307 (Given - Provider: Katerine Pastrana RN) 0938 (Given - Provider: Shima Evangelista, PRO)0949 (Given - Provider: Shima Evangelista, PRO) ipratropium-albuterol (DUONEB) 0.5 mg-3 mg(2.5 mg base)/3 mL inhalation solution 3 mL 3 mL, Inhalation, EVERY 6 HOURS PRN RESPIRATORY, Starting on Sun07/11/18 at 1500, Until Sun07/12/18 at 2028, Shortness of Breath, Wheezing, Routine LORazepam (ATIVAN) tablet 1 mg 1 mg, Oral, ONE TIME PRN, 1 dose, Starting on Sun07/11/18 at 2109, Until Sun07/12/18 at 2028, Other (See Comment), before MRI, Routine ondansetron (ZOFRAN ODT) tablet 4 mg 4 mg, Oral, EVERY 8 HOURS PRN, Starting on Sun07/11/18 at 1500, Until Sun07/12/18 at 2028, Nausea/Emesis, Routine prochlorperazine (COMPAZINE) injection 10 mg 10 mg, IV, EVERY 6 HOURS PRN, Starting on Rachel 07/11/18 at 1500, Until Sun07/12/18 at 2028, Nausea/Emesis, Routine sennosides-docusate sodium (SENNA-S) 8.6-50 mg per tablet 1 Tablet 1 Tablet, Oral, DAILY PRN, Starting on Rachel 07/11/18 at 1500, Until Sun07/12/18 at 2028, Constipation, Routine sodium chloride (OCEAN) 0.65 % nasal soln 2 Sanford 2 Sanford, Both Nostrils, EVERY 15 MINUTES PRN, Starting on Rachel 07/11/18 at 1500, Until Sun07/12/18 at 2028, Allergies, Congestion, Routine documented in this encounter Care Teams Bulb Inspector Relationship Specialty Start Date End Date Huseyin Dangelo MD PCP - General 09/29/17 07/14/19 documented as of this encounter
--- OUTSIDE RECORDS SUMMARY | 2024-02-24 20:39 | XMS_ITS | Encounter Summary ---
Author Organization [facility] Address [address] [place] [address] Care Team Providers Care Supervisor [employer] Name Role Phone Brian Mon MD Primary Care Provider Encounter Details Date Type Department Care Team (Late st Contact Info) Description 08/03/2004 Outpatient Historical [facility] [address] [place] [id number] [place] [id number] [facility] [place] [address] Social History Tobacco Use Types [...] as of this encounter Care Teams Supervisor [employer] Relationship Specialty Start Date End Date Brian Mon MD [id number] [place] [id number] PCP - General Internal Medicine 07/15/19 documented as of this encounter
--- OUTSIDE RECORDS SUMMARY | 2024-02-24 20:39 | XMS_ITS | Encounter Summary ---
Author Organization [facility] Address [address] [place] [address] Care Team Providers Care Sas Administrator Name Role Phone Huseyin Dangelo MD Primary Care Provider [phone] Reason for Visit * Reason Comments Hand Pain arthritis Foot Pain Encounter Details Date Type Department Care Team (Late st Contact Info) Description 01/03/2018 6:43 AM MINI LAB OPERATOR - 01/03/2018 9:09 AM MINI LAB OPERATOR Emergency [facility] Emergency Department [address] [place] [id number] Jackson Madsen MD NO ADDRESS ON FILE Arthralgia, unspecified joint (Primary Dx) Discharge Disposition: [...] Sign Reading Time Taken Comments Blood Pressure 120/65 01/03/2018 9:08 AM MINI LAB OPERATOR Pulse - - Temperature 37 ??C (98.6 ??F) 01/03/2018 6:31 AM MINI LAB OPERATOR Respiratory Rate 16 01/03/2018 9:08 AM MINI LAB OPERATOR Oxygen Saturation 100% 01/03/2018 9:08 AM MINI LAB OPERATOR Inhaled Oxygen Concentration - - Weight 63.5 kg (140 lb) 01/03/2018 6:31 AM MINI LAB OPERATOR Height 152.4 cm (5') 01/03/2018 6:31 AM MINI LAB OPERATOR Body Mass Index 27.34 01/03/2018 6:31 AM MINI LAB OPERATOR documented in this encounter Discharge Instructions * Discharge Instructions* Jackson Madsen MD - 01/03/2018 8:59 AM MINI LAB OPERATOR Please do not hesitate to return to the emergency department for any increase in your pain, any newfevers, or for any further concerns you might have about your health. Please take the medications we have prescribed for your pain if you need them. Do not drive or drink while taking this medication. LAB OPERATOR * Attachments The following attachments cannot be sent through Care Everywhere. * Joint Pain (Paraguayan) documented in this encounter Medications at Time of Discharge Medication Sig Dispensed Refills Start Date End Date medroxyPROGESTERone (PROVERA) 10 mg tablet Take 10 mg by mouth daily. 04/13/2018 valACYclovir (VALTREX) 1 gram tablet Take 1,000 mg by mouth 2 times daily. 04/27/2020 tobramycin (TOBREX) 0.3 % solution 1 Drop every 4 hours. 04/13/2018 documented as of this encounter ED Notes * Dayna Kowalski RN - 01/03/2018 9:08 AM CST Discharge instructions and prescription were given to patient. Patient voiced understanding of new medications, follow up appointments and discharge instructions. Patient ambulated to be dc with belongings. LAB OPERATOR * Ashley Curry RN - 01/03/2018 7:29 AM CST 27 F arrives to the ED from home with complaints of bilateral hand and foot pain. Pt reports it feels like my hands and feet are . Pt was seen here for same about a year ago she states. Was told to follow up with rn bone marrow transplant - reports making an appointment for this month. Came to the ER today because the pain is unbearable and affecting her daily life. 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 AxO4. Ambulatory with moderate pain. LAB OPERATOR * Gayla Delgado RN - 01/03/2018 6:27 AM CST TB Screen instructions: Complete the TB [...] greater, initiate Airborne Isolation and contact provider. LAB OPERATOR * Jackson Madsen MD - 01/03/2018 6:26 AM CST HISTORY OF PRESENT ILLNESS Carito Rausch, a 27 y.o. female presents to the ED with a Chief Complaint of Hand Pain and Foot Pain Blood pressure 120/65, temperature 98.6 ??F (37 ??C), temperature source Oral, resp. rate 16, height 5' (1.524 m), weight 63.5 kg (140 lb), SpO2 100 %, not currently . Subjective 27-year-old woman with no pertinent past medical history presents with pain and swelling to her hands and feet. Patient states the pain is been present for the last year, although it is gotten worse in the cold months. She states that the pain is currently so bad that she is unable to brush her teeth in the morning. She finds herself unable to work because she cannot write. She also is unable to open a jar. She states the pain has become very severe and she is no longer able to tolerate it. Shestates the only thing that helps with the pain is marijuana. She states that she has used ibuprofen, with minimal relief. She states that, after having these issues Eduardo, she saw her primary physician, who sent labs and told her she was anemic. No further workup was ever done. She denies any chest pain or shortness of breath. She denies fevers, chills, sweats, or any other constitutional symptoms. Of note, the patient tells me that she gets strep throat every 3 weeks. She also tells me that she used anabolic steroids for a period of approximately 6 months a few years ago, as part of a [employer] hobby. She tells me that she has an appointment with a rn bone marrow transplant at [facility] next week. Hand Pain Associated symptoms: no fatigue and no fever Foot Pain Associated symptoms: no fatigue and no fever REVIEW OF SYSTEMS Review of Systems Constitutional: Negative. Negative for chills, diaphoresis, fatigue and fever. Respiratory: Negative. Negative for cough and shortness of breath. Cardiovascular: Negative. Negative for chest pain. Gastrointestinal: Negative. Negative for abdominal pain, constipation, diarrhea, nausea and vomiting. Genitourinary: Negative for dysuria and hematuria. Musculoskeletal: Positive for arthralgias. Negative for myalgias. Skin: Negative. Negative for rash. Neurological: Negative. Psychiatric/Behavioral: Negative. All other systems [...] HOME MEDICATIONS Discharge Medication List as of 01/03/2018 8:59 AM START taking these medications Details HYDROcodone-acetaminophen (NORCO) 5-325 mg tablet Take 1 Tablet by mouth every 4 hours as needed for Pain. Max Daily Amount: 6 Tablets, Disp-20 Tablet, R-0 CONTINUE these medications which have NOT CHANGED Details medroxyPROGESTERone (PROVERA) 10 mg tablet Take 10 mg by mouth daily. valACYclovir (VALTREX) 1 gram tablet Take 1,000 mg by mouth 2 times daily. tobramycin (TOBREX) 0.3 % solution 1 Drop every 4 hours. Objective PHYSICAL EXAM INITIAL VS BP: 123/78 (01/03/18630), Heart Rate: 90 bpm (01/03/18630), Resp: 17 (01/03/18630), Temp: 98.6 ??F (37 ??C) (01/03/18630), Temp src: Oral (01/03/18630), SpO2: 99 % (01/03/18630), Height: 5' (152.4 cm) (01/03/18630), Weight: 63.5 kg (140 lb) (01/03/18630), BMI (Calculated): 27.34 (10/13) No LMP recorded. Physical Exam Constitutional: She [...] rales. She exhibits no tenderness. Abdominal: Soft. She exhibits no distension and no mass. There is no tenderness. There is no rebound and no guarding. Musculoskeletal: Normal range of motion. She exhibits no edema, tenderness or deformity. Diffusely swollen and not erythematous major joints. No tenderness diffusely Neurological: She is alert and oriented to person, place, and time. No cranial nerve deficit. Coordination normal. Skin: Skin is warm and dry. No rash noted. She is not diaphoretic. No erythema. No pallor. Psychiatric: She has a normal mood and affect. Nursing note and vitals reviewed. DIAGNOSTICS LAB: CBC WITH DIFFERENTIAL - Abnormal Result Value WBC 6.1 RBC 3.92 HEMOGLOBIN 8.9 (*) HEMATOCRIT 28.1 (*) MCV 71.5 (*) MCH 22.8 (*) MCHC 31.9 (*) RDW 22.4 (*) PLATELETS 342 MPV 7.3 (*) NEUTROPHILS 81 (*) LYMPHOCYTES 12 (*) MONOCYTES 5 EOSINOPHILS 1 BASOPHILS 0 IMMATURE GRANULOCYTES 0 NEUTROPHIL ABSOLUTE 4.90 LYMPHOCYTE ABSOLUTE 0.70 MONOCYTE ABSOLUTE 0.30 EOSINOPHIL ABSOLUTE 0.10 BASOPHILS ABSOLUTE 0.00 IMMATURE GRANULOCYTES ABSOLUTE 0.00 URIC ACID - Normal URIC ACID 5.2 COMPREHENSIVE METABOLIC PANEL - Normal SODIUM 137 POTASSIUM 4.2 CHLORIDE 102 CO2 23 CALCIUM 9.4 BUN 11 CREATININE 0.61 GLUCOSE 89 TOTAL PROTEIN 7.9 ALBUMIN 4.4 BILIRUBIN TOTAL 0.2 ALKALINE PHOSPHATASE 50 AST 28 ALT 28 GFR >60 GFR, >60 ANION GAP 12 CK TOTAL AND CKMB CKMB 1.2 CK 67 CK-MB REL. INDEX 1.8 RADIOLOGY: No orders to display No orders to display EKG: PROCEDURES Procedures MEDICAL DECISION MAKING AND PLAN OF CARE MDM Summary Statement: Pulse oximetry interpreted by me: 100% on room air. Impression normal Rhythm strip interpreted by me: Normal sinus rhythm. Rate 85. No arrhythmias Assessment: 27-year-old woman presents with hand and foot pain Differential: High probability rheumatologic phenomenon; moderate probability functional symptoms; low probability infectious phenomenon Plan: 1. Labs 2. Above confirms the patient's anemia. She does not appear symptomatic, and is hemodynamically stable. I believe her symptoms are most likely related to rheumatoid arthritis or some other such rheumatologic phenomenon. We will plan discharge with pain control until this time and she follows up with her rn bone marrow transplant. 3. The patient reports minimal improvement with medications provided. I encouraged her to continue using marijuana for pain relief at this phenomenon if it works for her 4. Patient states understanding that she should return for any increase in her symptoms, any new pains or fevers, or for any other concerns. Patient reassessed frequently. Discharge orders placed I have reviewed nursing notes related to past medical history, social history, and review of systems and agree, unless otherwise noted. Medications Administered During the ED Stay from 01/03/2018 0626 to 01/03/2018 1418 Date/Time Order Dose Route Action 01/03/2018 0819 HYDROcodone-acetaminophen (NORCO) 5-325 mg per tablet 1 Tablet 1 Tablet Oral Given Discharge Medication List as of 01/03/2018 8:59 AM START taking these medications Details HYDROcodone-acetaminophen (NORCO) 5-325 mg tablet Take 1 Tablet by mouth every 4 hours as needed for Pain. Max Daily Amount: 6 Tablets, Disp-20 Tablet, R-0 CONTINUE these medications which have NOT CHANGED Details medroxyPROGESTERone (PROVERA) 10 mg tablet Take 10 mg by mouth daily. valACYclovir (VALTREX) 1 gram tablet Take 1,000 mg by mouth 2 times daily. tobramycin (TOBREX) 0.3 % solution 1 Drop every 4 hours. LAST VS BP: 120/65 (01/03/18907), Heart Rate: 85 bpm (01/03/18907), Resp: 16 (01/03/18907), Temp: 98.6 ??F (37 ??C) (01/03/18630), Temp src: Oral (01/03/18630), SpO2: 100 % (01/03/18907) CLINICAL IMPRESSION Final diagnoses: [M25.50] Arthralgia, unspecified joint (Primary) DISPOSITION, EDUCATION AND MEDICATION RECONCILIATION Medications reconciled. See after visit summary for patient education on discharged patients. ED Disposition ED Disposition Condition User Date/Time Comment Discharge Stable Jackson Madsen MD [facility] Jan 03, 2018 8:58 AM ATTESTATION STATEMENTS The results of all pertinent laboratory exams and imaging studies performed were interpreted and reviewed independently by me This note was dictated using [employer] software. Please excuse any typographical errors. LAB OPERATOR documented in this encounter Plan of Treatment Not on file documented as of this encounter Procedures Procedure Name Priority Date/Time Associated Diagnosis Comments CBC WITH DIFFERENTIAL Stat 01/03/2018 7:39 AM MINI LAB OPERATOR URIC ACID Stat 01/03/2018 7:39 AM MINI LAB OPERATOR CK TOTAL AND CKMB Stat 01/03/2018 7:3 9 AM MINI LAB OPERATOR COMPREHENSIVE METABOLIC PANEL Stat 01/03/2018 7:39 AM MINI LAB OPERATOR documented in this encounter Results * COMPREHENSIVE METABOLIC PANEL (01/03/2018 7:39 AM MINI LAB OPERATOR) SODIUM 137 136 - 145 mmol/L 01/03/2018 8:57 AM MINI LAB OPERATOR [employer] [facility] POTASSIUM 4.2 3.4 - 5.1 mmol/L 01/03/2018 8:57 AM [facility] CHLORIDE 102 98 - 107 mmol/L 01/03/2018 8:57 AM [facility] CO2 23 22 - 30 mmol/L 01/03/2018 8:57 AM [facility] CALCIUM 9.4 8.6 - 10.4 mg/dL 01/03/2018 8:57 AM [facility] BUN 11 6 - 20 mg/dL 01/03/2018 8:57 AM [facility] CREATININE 0.61 0.50 - 1.00 mg/dL 01/03/2018 8:57 AM [facility] GLUCOSE 89 74 - 99 mg/dL 01/03/2018 8:57 AM [facility] TOTAL PROTEIN 7.9 6.3 - 8.7 g/dL 01/03/2018 8:57 AM [facility] [employer] [facility] ALBUMIN 4.4 3.5 - 5.2 g/dL 01/03/2018 8:57 AM [facility] [employer] [facility] BILIRUBIN TOTAL 0.2 0.2 - 1.3 mg/dL 01/03/2018 8:57 AM [facility] ALKALINE PHOSPHATASE 50 40 - 150 U/L 01/03/2018 8:57 AM [facility] AST 28 0 - 33 U/L 01/03/2018 8:57 AM [facility] [employer] [facility] ALT 28 0 - 33 U/L 01/03/2018 8:57 AM [facility] [employer] [facility] GFR >60 >=60 mL/min/1.7 3 sq meter 01/03/2018 8:57 AM [facility] [employer] [facility] Comment: eGFR has not been validated for [...] GFR, >60 >=60 mL/min/1.7 3 sq meter 01/03/2018 8:57 AM [facility] ANION GAP 12 8 - 16 mmol/L 01/03/2018 8:57 AM [facility] Blood Venipuncture / Unknown 01/03/2018 7:39 AM MINI LAB OPERATOR 01/03/2018 8:25 AM MINI LAB OPERATOR Jackson Madsen MD CHEMISTRY ORDERABLE S [facility] CLIA# [id number] [place] [address] * (ABNORMAL) CBC WITH DIFFERENTIAL (01/03/2018 7:39 AM MINI LAB OPERATOR) Pathologist [facility] WBC 6.1 4.5 - 10.5 K/uL 01/03/2018 7:56 AM [facility] RBC 3.92 3.90 - 4.90 M/uL 01/03/2018 7:56 AM [facility] HEMOGLOBIN 8.9(L) 11.8 - 14.8 g/dL 01/03/2018 7:56 AM [facility] HEMATOCRIT 28.1(L) 35.5 - 44.0 % 01/03/2018 7:56 AM [facility] MCV 71.5(L) 82.0 - 99.0 fL 01/03/2018 7:56 AM [facility] [employer] [facility] MCH 22.8(L) 27.8 - 34.5 pg 01/03/2018 7:56 AM [facility] MCHC 31.9(L) 32.5 - 35.5 g/dL 01/03/2018 7:56 AM [facility] [employer] [facility] RDW 22.4(H) 11.5 - 14.5 % 01/03/2018 7:56 AM MINI LAB OPERATOR [facility] PLATELETS 342 160 - 420 K/uL 01/03/2018 7:56 AM [facility] MPV 7.3(L) 8.7 - 12.7 fL 01/03/2018 7:56 AM [facility] NEUTROPHILS 81(H) 45 - 70 % 01/03/2018 7:56 AM [facility] LYMPHOCYTES 12(L) 16 - 45 % 01/03/2018 7:56 AM [facility] MONOCYTES 5 3 - 13 % 01/03/2018 7:56 AM MINI LAB OPERATOR [facility] LABORATORY [facility] EOSINOPHILS 1 0 - 7 % 01/03/2018 7:56 AM [facility] BASOPHILS 0 0 - 2 % 01/03/2018 7:56 AM [facility] IMMATURE GRANULOCYTES 0 0 - 5 % 01/03/2018 7:56 AM [facility] NEUTROPHIL ABSOLUTE 4.90 1.90 - 7.00 K/uL 01/03/2018 7:56 AM [facility] LYMPHOCYTE ABSOLUTE 0.70 K/uL 01/03/2018 7:56 AM [facility] MONOCYTE ABSOLUTE 0.30 K/uL 018 7:56 AM [facility] EOSINOPHIL ABSOLUTE 0.10 0.00 - 0.70 K/uL 01/03/2018 7:56 AM [facility] BASOPHILS ABSOLUTE 0.00 K/uL 01/03/2018 7:56 AM [facility] IMMATURE GRANULOCYTES ABSOLUTE 0.00 K/uL 01/03/2018 7:56 AM [facility] Blood Venipuncture / Unknown 01/03/2018 7:39 AM MINI LAB OPERATOR 01/03/2018 7:44 AM MINI LAB OPERATOR Jackson Madsen MD HEMATOLOGY ORDERABL ES [facility] CLIA# [id number] [place] [address] * CK TOTAL AND CKMB (01/03/2018 7:39 AM MINI LAB OPERATOR) CKMB 1.2 <=3.8 ng/mL 01/03/2018 8:57 AM [facility] CK 67 20 - 180 U/L 01/03/2018 8:57 AM [facility] CK-MB REL. INDEX 1.8 % 01/03/2018 8:57 AM [facility] Blood Venipuncture / Unknown 01/03/2018 7:39 AM MINI LAB OPERATOR 01/03/2018 8:25 AM MINI LAB OPERATOR Jackson Madsen MD [id number] [address] [place] [address] * URIC ACID (01/03/2018 7:39 AM MINI LAB OPERATOR) URIC ACID 5.2 2.4 - 5.7 mg/dL 01/03/2018 8:57 AM [facility] Blood Venipuncture / Unknown 01/03/2018 7:39 AM MINI LAB OPERATOR 01/03/2018 8:25 AM MINI LAB OPERATOR Jackson Madsen MD [facility]STR[id number] [place] [address] documented in this encounter Visit Diagnoses Diagnosis Arthralgia, unspecified joint- Primary documented in this encounter Administered Medications Inactive Administered Medications - up to 3 most recent administrations Medication Order MAR Action Action Date Dose Rate Site HYDROcodone-acetaminophen (NORCO) 5-325 mg per tablet 1 Tablet 1 Tablet, Oral, ONE TIME ONLY, 1 dose, On Rachel 01/03/18 at 0830, Routine Given 01/03/2018 8:19 AM MINI LAB OPERATOR 1 Tablet documented in this encounter Active and Recently Administered Medications Times are shown in MINI LAB OPERATOR. Scheduled Medication Order 01/01/2018 01/02/2018 01/03/2018 HYDROcodone-acetaminophen (NORCO) 5-325 mg per tablet 1 Tablet (COMPLETED) 1 Tablet, Oral, ONE TIME ONLY, 1 dose, On Rachel 01/03/18 at 0830, Routine 0819 (Given - Provid er: Ashley Curry RN) documented in this encounter Care Teams Sas Administrator Relationship Specialty Start Date End Date Huseyin Dangelo MD PCP - General 09/29/17 07/14/19 documented as of this encounter
== END 2024-02-17 14:50 | disposition home or self-care (01) ==
PROVIDERS: Emergency Provider Nurse Practitioner Family; PCP Internal Medicine
DX: J06.9 Acute upper respiratory infection, unspecified (principal); Z20.822 Contact with and (suspected) exposure to COVID-19; F17.210 Nicotine dependence, cigarettes, uncomplicated; F12.90 Cannabis use, unspecified, uncomplicated; J45.909 Unspecified asthma, uncomplicated; M32.9 Systemic lupus erythematosus, unspecified; M06.9 Rheumatoid arthritis, unspecified; K21.9 Gastro-esophageal reflux disease without esophagitis
CPT/HCPCS: 87426; 87804; 99213; G0463

== ENCOUNTER 2025-01-09 14:37 | Emergency (ER) | payer SELFPAY ==
[2025-01-09 14:45] VITALS: BP 120/72; PULSE 75; RESP 20; TEMP 36.8; O2SAT 100
--- NOTE | 2025-01-09 14:53 | ED.FEMALEGU ---
HPI - Female Genitourinary General Chief complaint: Urogenital-Female Stated complaint: Vaginal Issue Time Seen by Provider: 01/09/25 14:50 Source: patient, RN notes reviewed and old records reviewed Mode of arrival: ambulatory Limitations: no limitations History of Present Illness HPI Narrative: 34 year old female who presents to express care with complaints of vaginal issues with severe irritation for one week duration. Patient reports that she thinks she has either BV or yeast infection. Her OB called in some Diflucan for her and she has taken 2 doses of Diflucan with last dose yesterday. She called OB today and she called in some ointment for her to use for the external irritation of Terconazole 0.8% but she couldn't be seen. She was told to come to urgent care to get swabs done for BV and yeast. Patient reports history of frequent yeast infetions and BV in past. Patient reports that she has history of Lupus.Patient denies any urinary symptoms or concern for STD's MD elicited complaint: other (external vaginal irritation and white discharge) Pertinent past history: other (BV and yeast) Onset (ago): week(s) (1) Location of symptoms: vaginal Severity: moderate Vaginal discharge: white Vaginal bleeding: none Related Data Home Medications ?Medication ?Instructions ?Recorded ?Confirmed ?Last Taken ?Type hydroxychloroquine 200 mg tablet 200 mg PO DAILY 03/04/19 02/17/24 Unknown History omeprazole 20 mg tablet,delayed 20 mg PO DAILY 03/04/19 02/17/24 Unknown History release sertraline 25 mg tablet mg 08/04/23 Unknown History acyclovir 5 % topical ointment topical 01/04/24 Unknown History Flonase 02/17/24 Unknown History cetirizine .ROUTE 02/17/24 Unknown History Allergies Allergy/AdvReac Type Severity Reaction Status Date / Time methylprednisolone (From Allergy Anaphylaxis Verified 01/09/25 14:38 Solu-Medrol) Penicillins Allergy Rash Verified 01/09/25 14:38 venlafaxine Allergy Rash Verified 01/09/25 14:38 Review of Systems Review of Systems: CONSTITUTIONAL: Denies fever, chills, or sweats. CARDIOVASCULAR: Denies chest pain, palpitations, or edema. RESPIRATORY: Denies cough or dyspnea. GASTROINTESTINAL: Denies abdominal pain, nausea, vomiting, or diarrhea. GENITOURINARY: Reports thin white vaginal discharge that is itchy and external vaginal irritation. Denies flank pain or hematuria. SKIN: Denies rash or itching. MUSCULOSKELETAL: Denies back pain or myalgia. Denies CVA tenderness NEUROLOGIC: Denies headache All systems reviewed & are unremarkable except as noted in HPI and below PMFSH Past Medical History Medical History Connective tissue disorder History of gastroesophageal reflux (GERD) Asthma Bronchitis Appendicitis Chronic diarrhea Anxiety Lupus (systemic lupus erythematosus) Rheumatoid arthritis Surgical History Surgical History Status post breast reduction Hx of appendectomy H/O right wrist surgery Family History Family History Father Acute myocardial infarction Mother , Mother by boyfriend No problems noted. Social History Social History Smoking packs per day: 0.25 Smoking cigarettes per day: 5.0 Years smoked: 4 Smoking pack-years: 1.00 Smoking status: Current every day smoker Tobacco type: cigarettes Alcohol intake: former Substance use: current Substance use type: marijuana Living arrangements: with family Occupation/Education: occupation Gender identity (if verbalized by the patient): Female Sexual Orientation (if Verbalized by the Patient): Straight or Heterosexual Comments At time of signature, agree with nursing past medical, surgical, social and family history. There is no relevant family history pertinent to the presenting complaint Exam Narrative: GENERAL: Well-appearing, well-nourished, and in no acute distress. HEAD: Normocephalic, atraumatic. NECK: Supple.no lymphadenopathy CHEST: Clear to auscultation. No respiratory distress. SAO2 100% on room air HEART: Regular rate and rhythm. No murmur heard. Normal peripheral pulses. ABDOMEN: Soft, nontender, nondistended, normal active bowel sounds. No CVA tenderness, vaginal discharge and external vaginal irritation EXTREMITIES: Normal range of motion. No edema. SKIN: Warm, dry, no rash. NEURO: No focal deficits. Alert and oriented x3. Course Course Emergency Course: Patient is aware of diagnosis, understands and agrees to treatment plan.? Anticipatory guidance given.? Patient agrees to follow-up as directed and is aware of reasons to seek care at the emergency department. Portions of this record may have been created with voice recognition software Level of Care: Express Care Visit Vital Signs Vital signs: Vital Signs Temperature 36.8 C 01/09/25 14:45 Pulse Rate 75 01/09/25 14:45 Respiratory Rate 20 01/09/25 14:45 Blood Pressure 120/72 01/09/25 14:45 Pulse Oximetry 100 01/09/25 14:45 Oxygen Delivery Room Air 01/09/25 14:45 Temperature 36.8 C 01/09/25 14:45 Pulse Rate 75 01/09/25 14:45 Respiratory Rate 20 01/09/25 14:45 Blood Pressure 120/72 01/09/25 14:45 Pulse Oximetry 100 01/09/25 14:45 Oxygen Delivery Room Air 01/09/25 14:45 MDM - Female Genitourinary MDM Narrative Medical decision making narrative: Exam findings and UA show no acute concerns or changes; patient is non-toxic appearing and is in no distress.? Patient is appropriate for outpatient treatment and follow-up. Differential Diagnosis Differential diagnosis: Likely bacterial vaginosis, vaginitis, cystitis and other (vaginal irritation, vaginal yeast infection) Lab Data Attestation: I reviewed the patient's lab results. Lab results narrative: swabs for BV and Yeast sent to lab for analysis Critical Care Time Critical Care Time Critical Care Time: No Discharge Plan Discharge Clinical Impression: Vaginal discharge Patient Disposition: Home Condition: Stable Instructions: Antibiotic Form, Vaginal Discharge (ED) Additional Instructions: Increase fluids especially cranberry juice and water Avoid caffeine and carbonated beverages Medicine as directed- by your STATISTICAL ANALYST topical ointment Tylenol/ibuprofen for pain or fever Follow-up with her primary care provider if further problems or concerns Recheck if you have fever over 101, nausea and vomiting. Follow up with STATISTICAL ANALYST Sunday Swabs sent for BV and genital culture If your symptoms persist, change or worsen significantly before you can contact your personal physician then please, without delay, go to the emergency department for further evaluation. Follow-up with PCP in 7-10 days or sooner if needed Patient Language: Czech Prescriptions: No Action acyclovir 5 % ointment TOPICAL cetirizine [Zyrtec] .ROUTE Flonase omeprazole 20 mg Tablet,Delayed Release (Dr/Ec) 20 mg PO DAILY hydroxychloroquine 200 mg Tablet 200 mg PO DAILY sertraline 25 mg tablet Follow-up/Referrals: Yaa,Brian Tatum MD [Primary Care Provider, Unknown] Time of Disposition: 15:31 Quality Arnold Coma Scale Eyes: Open Verbal: Oriented and Alert Motor: Follows Commands [place] Coma Total Score: 15
--- OUTSIDE RECORDS SUMMARY | 2025-01-09 19:01 | XMS_ITS | Encounter Summary ---
Author Organization [facility] Address [address] [place] [address] Phone Care Team Providers Care Wet Roller Name Role Phone Gayla Barker APRN, HARSHA Primary Care Provider [facility] Unavailable Marianela vailable Brian Mon MD Primary Care Provider [phone] Reason for Visit * Reason Comments Medication Refill Encounter Details Date Type Department Care Team (Late st Contact Info) Description 04/12/2020 Refill [facility] - Primary Care - [address] [place] [address] Gayla Barker APRN LEAD QUALITY CONTROL TECHNICIAN [address] [place] [address] Medication Refill Social History Tobacco [...] on file Legal Sex Female 10:27 AM 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 No / Unsure 04/07/2020 8:36 AM HUNTING AND FISHING GUIDE documented as of this encounter Plan of Treatment Not on file documented as of this encounter Visit Diagnoses Not on filedocumented in this encounter Additional Health Concerns Infection Onset Date Last Indicated Resolved Time COVID - 19 12/06/2020 12/06/2020 12/26/2020 12:1 6 AM CDT COVID - 19 03/05/2021 03/05/2021 03/05/2021 6:11 PM HUNTING AND FISHING GUIDE COVID - 19 Confirmed 03/05/2021 03/05/2021 022 12:16 AM HUNTING AND FISHING GUIDE COVID - 19 11/14/2021 11/18/2021 11/28/2021 12:1 6 AM CDT COVID - 19 01/08/2022 01/08/2022 01/18/2022 12:1 6 AM HUNTING AND FISHING GUIDE COVID - 19 04/25/2022 04/25/2022 05/05/2022 12:1 6 AM HUNTING AND FISHING GUIDE COVID - 19 10/17/2023 10/17/2023 10/17/2023 1:56 PM CDT COVID - 19 09/08/2024 09/08/2024 09/08/2024 2:54 PM CDT Respiratory Rule-Out 09/08/2024 09/08/2024 025 2:57 PM CDT Assessment Noted Time PHQ-9 Depression Total Score: 0 03/25/19 20 10:00 AM HUNTING AND FISHING GUIDE documented as of this encounter Care Teams Wet Roller Relationship Specialty Start Date End Date Gayla Barker, FRUIT AND VEGETABLE CLASSER, LEAD QUALITY CONTROL TECHNICIAN [address] [place] [address] PCP - General Advanced Practice Nurse 03/25/19 Brian Mon MD [address] [place] [address] PCP - General Internal Medicine 10/17/23 [facility] [place] [employer] [facility] 09/03/19 documented as of this encounter
--- OUTSIDE RECORDS SUMMARY | 2025-01-09 19:01 | XMS_ITS | Data Portability ---
Author Organization [facility] Noa Lucero Address [address] [place] [address] Care Team Providers Care Pecan Grower Name Role Phone LAILA JAYDA Disability Insurance Hearing Officer VI [phone] Grip Boss [phone] Assessment Encounter Date Assessment Date Assessment LastModified by Organization Details LastModified Time 03/22/2021 03/22/2021 Will continue ocp and follow up as needed. [email or web address] Not available 03/22/2021 15:03:37 05/23/2024 05/23/2024 Pt states pap done within in last 2 years at an obgyn office in [facility] Will obtain records. [email or web address] Not available 05/23/2024 10:34:49 Plan of Treatment Reminders Order Date Submit Date Provider Last Modified By Organization Details Last Modified Time Details Appointments ANY 15 2024 10:00A M Jayda Adamson, TRAVEL RN OR-BC Not available Not available Not available Lab vagina l pathog ens panel, SCOT+pr obe, vagina l fluid 2022 023 [facility], [address], [address], [place], [address], 05/05/2022 16:13:42 urinal ysis, dipsti ck 2022 023 [facility] In-Office Order, Internal Use Only DO Not Attach Compendium DO Not Attach Compendium, Do Not Delete/merge, [id number] 05/04/2022 09:13:39 insuli n, serum 2021 022 [facility], [address], [place], [address], 08/06/2021 07:12:06 lh + FSH, serum 2021 022 [facility], [address], [place], [address], 08/06/2021 07:12:02 proges terone , serum 2021 022 [facility], [address], [place], [address], 08/06/2021 07:12:05 testos terone , free + total, serum 2021 022 [facility], [address], [place], [address], 08/06/2021 07:12:03 vitami n B12 + folate , serum or blood 2021 022 [facility], [address], [place], [address], 08/06/2021 07:12:01 CBC w/ auto diff 2021 022 [facility], [address], [place], [address], 08/06/2021 07:12:00 vitami n D, 25-hyd sharon, total, serum 2021 022 [facility], [address], [place], [address], 08/06/2021 07:12:04 CMP, serum or plasma 2021 022 [facility], [address], [place], [address], 08/06/2021 07:12:00 iron + total iron-b inding capaci ty (TIBC) , serum [address] [facility], [address] [place] [address] [address], [place], [address], 08/06/2021 07:12:01 HbA1c (hemog lobin A1c), blood [address] [facility], [address] [place] [address], [place], [address], 08/06/2021 07:12:04 BMP, serum or plasma 2021 [facility] [address] [place] [address] [address], [place], [address], 08/03/2021 11:25:53 TSH + free T4, serum [address] [facility], [address] [place] [address] 2, [place], [address], 08/06/2021 07:11:59 ferrit in, serum or plasma [address] [facility], [address] [place] [address] 2, [place], [address], 08/06/2021 07:12:06 rf (rheum atoid factor ) + anti-c cp abs, serum [address] [facility], [address] [place] [address], [place], [address], 08/06/2021 07:12:03 Referral genera l surgeo n referr al 2021 022 [email or web address] Cooney MD, [address] [place] [address] , [facility] [address], [place], [address], 01/11/2022 09:16:06 Procedures None record ed. Surgeries None record ed. Imaging None record ed. Medication Orders Heathe r 0.35 mg tablet 2024 025 [id number], [address] [place], [address], 05/23/2024 10:35:58 nystat in 100,00 0 unit/g tiera topica l powder 2023 024 [id number], [address] [place], [address], 07/04/2023 15:18:38 Difluc an 150 mg tablet 2023 024 [id number], [address] [place], [address], 05/23/2024 09:55:56 tercon azole 0.8 % vagina l cream 2023 024 [id number], [address] [place], [address], 05/23/2024 09:55:53 Difluc an 150 mg tablet 2022 023 [id number] [address] [place], [address], 05/23/2024 09:55:53 metron idazol e 0.75 % (37.5 mg/5 gram) vagina l gel [facility] [id number] [address] [place], [address], 05/23/2024 09:55:44 Ozempi c 0.25 mg or 0.5 mg (2 mg/1.5 mL) subcut aneous pen inject or 2022 023 [facility] Not available 08/04/2022 15:13:52 ondans etron 8 mg disint egrati ng tablet 2022 023 [id number] [address] [place], [address], 05/03/2022 14:37:20 Plenit y 0.75 gram capsul e 2021 deldredsmith Not available 08/04/2022 15:14:01 valacy clovir [address] [facility][id number], [address] [place], [address], 08/03/2021 11:34:47 Patient TargetsNo targets recorded. Patient Instructions Encounter Date Encounter Id Patient Instructions Last Modified By Organization Details Last Modified Time 03/22/2021 [id number] heavy menstrual periods: care instructions [email or web address] Not available 03/22/2021 15:03:37 08/03/2021 [id number] A healthy lifestyle: care instructions [email or web address] Not available 08/03/2021 11:25:53 Decreased Female Libido: Care Instructions [email or web address] Not available 08/03/2021 11:37:54 fatigue: care instructions deldredsmith Not available 08/03/2021 11:25:52 05/03/2022 [id number] painful urination (dysuria): care instructions [email or web address] Not available 05/03/2022 14:37:16 When You Want to Lose Weight: Care Instructions deldredsmith Not available 05/03/2022 14:37:16 07/04/2023 [id number] A healthy lifestyle: care instructions deldredsmith Not available 07/04/2023 15:18:34 05/23/2024 [id number] heavy menstrual periods: care instructions deldredsmith Not available 05/23/2024 10:35:50 body mass index: care instructions deldredsmith Not available 05/23/2024 10:35:50 learning about healthy weight deldredsmith Not available 05/23/2024 10:35:50 Reason for Referral General Surgeon Referral for Diastasis recti Referring Physician: Jayda Adamson, Jewel Supervisor, Encounter Date: 08/03/2021 Results Created Date Observation Date Name Description Value Unit Range Abnormal Flag Note LastModifiedBy Organization Detail LastModifiedTime 02/23/20 21 03/01/2021 IGP, RFX APTIM A HPV ASCU diagnosis: Jyothi freeman NEGAT FAZAL FOR INTRA EPITH ELIAL LESIO N OR SANIA BERTRAND . THIS SPECI MEN WAS RESCR EENED PART OF OUR QUALI TY CONTR OL PROGR AM. Not Available [facility] ([facility]) [address] [place], [address], 03/01/2021 16:10:04 02/23/20 21 03/01/2021 IGP, RFX APTIM A HPV ASCU specimen adequacy: Jyothi freeman Satis facto ry for evalu ation . No endoc ervic al compo nent is ident ified . Not Available [facility] ([facility]) [address] [place], [address], 03/01/2021 16:10:04 02/23/20 21 03/01/2021 IGP, RFX APTIM A HPV ASCU clinician provided ICD10: Jyothi freeman Z01.4 19 Not Available [facility] ([facility]) [address] [place], [address], 03/01/2021 16:10:04 02/23/20 21 03/01/2021 IGP, RFX APTIM A HPV ASCU performed by: Jyothi mohamud, Cytot echno logis t (ASCP ) Not Available [facility] ([facility]) [address] [place], [address], 03/01/2021 16:10:04 02/23/20 21 03/01/2021 IGP, RFX APTIM A HPV ASCU QC reviewed by: Jyothi ignacio, Cytot echno logis t (ASCP ) Not Available [facility] ([facility]) [address] [place], [address], 03/01/2021 16:10:04 02/23/20 21 03/01/2021 IGP, RFX APTIM A HPV ASCU . . Not Available [facility] ([facility]) [address] [place], [address], 03/01/2021 16:10:04 02/23/20 21 03/01/2021 IGP, RFX APTIM A HPV ASCU note: Commen t The Pap smear is a scree neftaly test desig jessica to aid in the detec tion of ann ligna nt and malig nant condi tions of the uteri ne cervi x. It is not a diagn ostic proce dure and shoul d not be used as the sole means of detec ting cervi ernesto cance r. Both false -posi tive and false -nega tive repor ts do occur . Not Available [facility] ([facility]) [address] [place], [address], 03/01/2021 16:10:04 02/23/20 21 03/01/2021 IGP, RFX APTIM A HPV ASCU test methodology: Commen t This liqui d based ThinP rep(R ) pap test was scree jessica with the use of an image guide d syste m. Not Available [facility] ([facility]) [address] [place], [address], 03/01/2021 16:10:04 02/23/20 21 03/01/2021 IGP, RFX APTIM A HPV ASCU . Commen t The HPV DNA refle x crite annalise were not met with this speci men resul t there fore, no HPV testi ng was perfo rmed. Not Available [facility] ([facility]) [address] [place], [address], 03/01/2021 16:10:04 08/04/19 22 08/04/2021 TSH+F REE T4 TSH 1.230 uIU/m L 0.450- 4.500 Not Available [facility] ([facility]) [address] [place], [address], 08/06/2021 07:11:59 08/04/19 22 08/04/2021 TSH+F REE T4 T4,free(dire ct) 1.07 NG/dL 0.82-1 .77 Not Available [facility] ([facility]) [address] [place], [address], 08/06/2021 07:11:59 08/04/19 22 08/04/2021 CBC WITH DIFFE RENTI AL/PL ATELE T WBC 6.8 x10e3 /uL 3.4-10 .8 Not Available [facility] ([facility]) [address] [place], [address], 08/06/2021 07:11:59 08/04/19 22 08/04/2021 CBC WITH DIFFE RENTI AL/PL ATELE T RBC 4.07 x10e6 /uL 3.77-5 .28 Not Available [facility] ([facility]) [address] [place], [address], 08/06/2021 07:11:59 08/04/19 22 08/04/2021 CBC WITH DIFFE RENTI AL/PL ATELE T hemoglobin 9.7 g/dL 11.1-1 5.9 below low normal Not Available [facility] ([facility]) [address] [place], [address], 08/06/2021 07:11:59 08/04/19 22 08/04/2021 CBC WITH DIFFE RENTI AL/PL ATELE T hematocrit 30.8 % 34.0-4 6.6 below low normal Not Available [facility] ([facility]) [address] [place], [address], 08/06/2021 07:11:59 08/04/19 22 08/04/2021 CBC WITH DIFFE RENTI AL/PL ATELE T MCV 76 fL 79-97 below low normal Not Available [facility] ([facility]) [address] [place], [address], 08/06/2021 07:11:59 08/04/19 22 08/04/2021 CBC WITH DIFFE RENTI AL/PL ATELE T MCH 23.8 pg 26.6-3 3.0 below low normal Not Available [facility] ([facility]) [address] [facility], [place], [address], 08/06/2021 07:11:59 08/04/19 22 08/04/2021 CBC WITH DIFFE RENTI AL/PL ATELE T MCHC 31.5 g/dL 31.5-3 5.7 Not Available [facility] ([facility]) [address] [place], [address], 08/06/2021 07:11:59 08/04/19 22 08/04/2021 CBC WITH DIFFE RENTI AL/PL ATELE T RDW 15.6 % 11.7-1 5.4 above high normal Not Available [facility] ([facility]) [address] [facility], [place], [address], 08/06/2021 07:11:59 08/04/19 22 08/04/2021 CBC WITH DIFFE RENTI AL/PL ATELE T platelets 344 x10e3 /uL 150-45 0 Not Available [facility] ([facility]) [address] [facility], [place], [address], 08/06/2021 07:11:59 08/04/19 22 08/04/2021 CBC WITH DIFFE RENTI AL/PL ATELE T neutrophils 67 % not estab. Not Available [facility] ([facility]) [address] [place], [address], 08/06/2021 07:11:59 08/04/19 22 08/04/2021 CBC WITH DIFFE RENTI AL/PL ATELE T lymphs 23 % not estab. Not Available [facility] ([facility]) [address] [place], [address], 08/06/2021 07:11:59 06/08/20 22 08/04/2021 CBC WITH DIFFE RENTI AL/PL ATELE T monocytes 7 % not estab. Not Available [facility] ([facility]) [address] [place], [address], 08/06/2021 07:11:59 08/04/19 22 08/04/2021 CBC WITH DIFFE RENTI AL/PL ATELE T eos 2 % not estab. Not Available [facility] ([facility]) [address] [facility], [place], [address], 08/06/2021 07:11:59 08/04/19 22 08/04/2021 CBC WITH DIFFE RENTI AL/PL ATELE T basos 1 % not estab. Not Available [facility] ([facility]) [address] [facility], [place], [address], 08/06/2021 07:11:59 08/04/19 22 08/04/2021 CBC WITH DIFFE RENTI AL/PL ATELE T immature cells GIS COORDINATOR Not Available [facility]) [address] [place], [address], 08/06/2021 07:11:59 08/04/19 22 08/04/2021 CBC WITH DIFFE RENTI AL/PL ATELE T neutrophils (absolute) 4.6 x10e3 /uL 1.4-7. 0 Not Available [facility] ([facility]) [address] [place], [address], 08/06/2021 07:11:59 08/04/19 22 08/04/2021 CBC WITH DIFFE RENTI AL/PL ATELE T lymphs (absolute) 1.6 x10e3 /uL 0.7-3. 1 Not Available [facility] ([facility]) [address] [place], [address], 08/06/2021 07:11:59 08/04/19 22 08/04/2021 CBC WITH DIFFE RENTI AL/PL ATELE T monocytes(ab solute) 0.5 x10e3 /uL 0.1-0. 9 Not Available [facility] ([facility]) [address] [place], [address], 08/06/2021 07:11:59 08/04/19 22 08/04/2021 CBC WITH DIFFE RENTI AL/PL ATELE T eos (absolute) 0.1 x10e3 /uL 0.0-0. 4 Not Available [facility] ([facility]) [address] [facility], [place], [address], 08/06/2021 07:11:59 08/04/19 22 08/04/2021 CBC WITH DIFFE RENTI AL/PL ATELE T baso (absolute) 0.0 x10e3 /uL 0.0-0. 2 Not Available [facility] ([facility]) [address] [place], [address], 08/06/2021 07:11:59 08/04/19 22 08/04/2021 CBC WITH DIFFE RENTI AL/PL ATELE T immature granulocytes 0 % not estab. Not Available [facility] ([facility]) [address] [place], [address], 08/06/2021 07:11:59 08/04/19 22 08/04/2021 CBC WITH DIFFE RENTI AL/PL ATELE T immature grans (abs) 0.0 x10e3 /uL 0.0-0. 1 Not Available [facility] ([facility]) [address] [place], [address], 08/06/2021 07:11:59 08/04/19 22 08/04/2021 CBC WITH DIFFE RENTI AL/PL ATELE T NRBC GIS COORDINATOR Not Available [facility] ([facility]) [address] [place], [address], 08/06/2021 07:11:59 08/04/19 22 08/04/2021 CBC WITH DIFFE ASH AL/PL GALO T hematology comments: GIS COORDINATOR Not Available [facility] ([facility]) [address] [facility], [place], [address], 08/06/2021 07:11:59 08/04/19 22 08/04/2021 COMP. METAB OLIC PANEL (14) glucose 83 mg/dL 65-99 Not Available [facility] ([facility]) [address] [facility], [place], [address], 08/06/2021 07:12:00 08/04/19 22 08/04/2021 COMP. METAB OLIC PANEL (14) BUN 10 mg/dL 6-20 Not Available [facility] ([facility]) [address] [facility], [place], [address], 08/06/2021 07:12:00 08/04/19 22 08/04/2021 COMP. METAB OLIC PANEL (14) creatinine 0.70 mg/dL 0.57-1 .00 Not Available [facility] ([facility]) [address] [facility], [place], [address], 08/06/2021 07:12:00 08/04/19 22 08/04/2021 COMP. METAB OLIC PANEL (14) eGFR 120 mL/mi n/1.7 3 >59 Not Available [facility] ([facility]) [address] [facility], [place], [address], 08/06/2021 07:12:00 08/04/19 22 08/04/2021 COMP. METAB OLIC PANEL (14) BUN/creatini ne ratio 14 9-23 Not Available [facility] ([facility]) [address] [facility], [place], [address], 08/06/2021 07:12:00 08/04/19 22 08/04/2021 COMP. METAB OLIC PANEL (14) sodium 138 mmol/ L 134-14 4 Not Available [facility] ([facility]) [address] [place], [address], 08/06/2021 07:12:00 08/04/19 22 08/04/2021 COMP. METAB OLIC PANEL (14) potassium 4.1 mmol/ L 3.5-5. 2 Not Available [facility] ([facility]) [address] [place], [address], 08/06/2021 07:12:00 08/04/19 22 08/04/2021 COMP. METAB OLIC PANEL (14) chloride 102 mmol/ L 96-106 Not Available [facility] ([facility]) [address] [place], [address], 08/06/2021 07:12:00 08/04/19 22 08/04/2021 COMP. METAB OLIC PANEL (14) carbon dioxide, total 21 mmol/ L 20-29 Not Available [facility] ([facility]) [address] [place], [address], 08/06/2021 07:12:00 08/04/19 22 08/04/2021 COMP. METAB OLIC PANEL (14) calcium 9.3 mg/dL 8.7-10 .2 Not Available [facility] ([facility]) [address] [place], [address], 08/06/2021 07:12:00 08/04/19 22 08/04/2021 COMP. METAB OLIC PANEL (14) protein, total 7.3 g/dL 6.0-8. 5 Not Available [facility] ([facility]) [address] [place], [address], 08/06/2021 07:12:00 08/04/19 22 08/04/2021 COMP. METAB OLIC PANEL (14) albumin 4.5 g/dL 3.9-5. 0 Not Available [facility] ([facility]) [address] [place], [address], 08/06/2021 07:12:00 08/04/19 22 08/04/2021 COMP. METAB OLIC PANEL (14) globulin, total 2.8 g/dL 1.5-4. 5 Not Available [facility] ([facility]) [address] [facility], [place], [address], 08/06/2021 07:12:00 08/04/19 22 08/04/2021 COMP. METAB OLIC PANEL (14) A/G ratio 1.6 1.2-2. 2 Not Available [facility] ([facility]) [address] [facility] [place], [address], 08/06/2021 07:12:00 08/04/19 22 08/04/2021 COMP. METAB OLIC PANEL (14) bilirubin, total 0.5 mg/dL 0.0-1. 2 Not Available [facility] ([facility]) [address] [facility] [place], [address], 08/06/2021 07:12:00 08/04/19 22 08/04/2021 COMP. METAB OLIC PANEL (14) alkaline phosphatase 57 IU/L 44-121 Not Available [facility]) [address] [facility], [place], [address], 08/06/2021 07:12:00 08/04/19 22 08/04/2021 COMP. METAB OLIC PANEL (14) AST (SGOT) 13 IU/L 0-40 Not Available [facility] ([facility]) [address] [facility], [place], [address], 08/06/2021 07:12:00 08/04/19 22 08/04/2021 COMP. METAB OLIC PANEL (14) ALT (SGPT) 10 IU/L 0-32 Not Available [facility] ([facility]) [address] [facility], [place], [address], 08/06/2021 07:12:00 08/04/19 22 08/04/2021 IRON AND TIBC iron bind.cap.(TI BC) 378 ug/dL 250-45 0 Not Available [facility] ([facility]) [address] [place], [address], 08/06/2021 07:12:01 08/04/19 22 08/04/2021 IRON AND TIBC UIBC 343 ug/dL 131-42 5 Not Available [facility] ([facility]) [address] [place], [address], 08/06/2021 07:12:01 08/04/19 22 08/04/2021 IRON AND TIBC iron 35 ug/dL 27-159 Not Available [facility] ([facility]) [address] [place], [address], 08/06/2021 07:12:01 08/04/19 22 08/04/2021 IRON AND TIBC iron saturation 9 % 15-55 alert low Not Available [facility]) [address] [place], [address], 08/06/2021 07:12:01 08/04/19 22 08/04/2021 VITAM IN B12 AND FOLAT E vitamin B12 529 pg/mL 232-12 45 Not Available [facility] ([facility]) [address] [place], [address], 08/06/2021 07:12:01 08/04/19 22 08/04/2021 VITAM IN B12 AND FOLAT E folate (folic acid), serum 8.6 NG/mL >3.0 A serum folat e corwin ntrat ion of less than 3.1 ng/mL is consi dered to repre sent clini ernesto defic iency . Not Available [facility] ([facility]) [address] [place], [address], 08/06/2021 07:12:01 08/04/19 22 08/04/2021 FSH AND LH LH 4.0 mIU/m L Adult Femal e: Folli cular phase 2.4 - 12.6 Ovula tion phase 14.0 - 95.6 Lutea l phase 1.0 - 11.4 Postm enopa usal 7.7 - 58.5 Not Available [facility] ([facility]) [address] [place], [address], 08/06/2021 07:12:02 08/04/19 22 08/04/2021 FSH AND LH FSH 2.7 mIU/m L Adult Femal e: Folli cular phase 3.5 - 12.5 Ovula tion phase 4.7 - 21.5 Lutea l phase 1.7 - 7.7 Postm enopa usal 25.8 - 134.8 Not Available [facility] ([facility]) [address] [place], [address], 08/06/2021 07:12:02 08/04/19 22 08/04/2021 TESTO STERO NE,FR EE AND TOTAL testosterone <3 NG/dL 13-71 below low normal Not Available [facility] ([facility]) [address] [place], [address], 08/06/2021 07:12:03 08/04/19 22 08/06/2021 TESTO STERO NE,FR EE AND TOTAL free testosterone (direct) <0.2 pg/mL 0.0-4. 2 Not Available [facility] ([facility]) [address] [place], [address], 08/06/2021 07:12:03 08/04/19 22 08/04/2021 RHEUM ATOID ARTHR ITIS PROFI LE rheumatoid factor (rf) <10.0 IU/mL <14.0 Not Available [facility] [address] [place], [address], 08/06/2021 07:12:03 08/04/19 22 08/05/2021 RHEUM ATOID ARTHR ITIS PROFI LE anti-ccp Ab, IgG/IgA 8 units 0-19 Negat fazal <20 Weak posit fazal 20 - 39 Moder ate posit fazal 40 - 59 Stron g posit fazal >59 Not Available [facility] ([facility]) [address] [place], [address], 08/06/2021 07:12:03 08/04/19 22 08/04/2021 HEMOG LOBIN A1C hemoglobin A1C 5.5 % 4.8-5. 6 Predi abete s: 5.7 - 6.4 Diabe casey: >6.4 Glyce marie contr ol for adult s with diabe casey: <7.0 Not Available [facility] ([facility]) [address] [facility], [place], [address], 08/06/2021 07:12:04 08/04/19 22 08/04/2021 VITAM IN [...] um and D. Bobby aldana DC: [facility] Press . 2. Siri gerber MF, Jeffrey henderson [place], Lydia off-F errar i [place], et al. Evalu ation , treat ment, and preve ntion of vitam in D defic iency : an Endoc rine Socie ty clini ernesto pract ice guide line. JCEM. 2010; 96(7) :1911 -30. Not Available [facility] ([facility]) [address] [place], [address], 08/06/2021 07:12:04 08/04/19 22 08/04/2021 PROGE STERO NE progesterone 20.8 NG/mL Folli cular phase 0.1 - 0.9 Lutea l phase 1.8 - 23.9 Ovula tion phase 0.1 - 12.0 Pregn ant First trime ster 11.0 - 44.3 Secon d trime ster 25.4 - 83.3 Third trime ster 58.7 - 214.0 Postm enopa usal 0.0 - 0.1 Not Available [facility] ([facility]) [address] [place], [address], 08/06/2021 07:12:05 08/04/19 22 08/04/2021 INSUL IN insulin 12.5 uIU/m L 2.6-24 .9 Not Available [facility] ([facility]) [address] [place], [address], 08/06/2021 07:12:06 08/04/19 22 08/04/2021 MALICK TIN ferritin 5 NG/mL 15-150 below low normal Not Available [facility] ([facility]) [address] [place], [address], 08/06/2021 07:12:06 05/04/19 23 05/05/2022 NUSWA B VAGIN ITIS PLUS (VG+) atopobium vaginae Low - 0 score Not Available [facility] ([facility]) [address] [place], [address], 05/05/2022 16:13:42 05/04/19 23 05/05/2022 NUSWA B VAGIN ITIS PLUS (VG+) bvab 2 Low - 0 score Not Available [facility] ([facility]) [address] [place], [address], 05/05/2022 16:13:42 05/04/19 23 05/05/2022 NUSWA B [...] d be evalu ated to estab belkis a diagn osis. Total score 3-6: Indic ates the prese nce of BV. This test was devel oped and its perfo rmanc e louie cteri stics deter mined by [facility]. It has not been clear ed or appro maulik by the Food and Drug Admin istra tion. Not Available [facility] ([facility]) [address] [place], [address], 05/05/2022 16:13:42 05/04/19 23 05/05/2022 NUSWA B VAGIN ITIS PLUS (VG+) bruce albicans, SCOT Positi ve negati ve abnormal Not Available [facility] ([facility]) [address] [place], [address], 05/05/2022 16:13:42 05/04/19 23 05/05/2022 NUSWA B VAGIN ITIS PLUS (VG+) bruce glabrata, SCOT Negati ve negati ve Not Available [facility] ([facility]) [address] [place], [address], 05/05/2022 16:13:42 05/04/19 23 05/05/2022 NUSWA B VAGIN ITIS PLUS (VG+) trich vag by SCOT Negati ve negati ve Not Available [facility] ([facility]) [address] [place], [address], 05/05/2022 16:13:42 05/04/19 23 05/05/2022 NUSWA B VAGIN ITIS PLUS (VG+) chlamydia trachomatis, SCOT Negati ve negati ve Not Available [facility] ([facility]) [address] [place], [address], 05/05/2022 16:13:42 05/04/19 23 05/05/2022 NUSWA B VAGIN ITIS PLUS (VG+) neisseria gonorrhoeae, SCOT Negati ve negati ve Not Available [facility] ([facility]) [address] [facility], [place], [address], 05/05/2022 16:13:42 06/23/19 23 06/23/2022 VITAM IN B12 AND FOLAT E vitamin B12 414 pg/mL 232-12 45 Not Available [facility] ([facility]) [address] [facility], [place], [address], 06/23/2022 07:14:27 06/23/19 23 06/23/2022 VITAM IN B12 AND FOLAT E folate (folic acid), serum 5.4 NG/mL >3.0 A serum folat e corwin ntrat ion of less than 3.1 ng/mL is consi dered to repre sent clini ernesto defic iency . Not Available [facility] ([facility]) [address] [place], [address], 06/23/2022 07:14:27 06/23/19 23 06/23/2022 IRON AND TIBC iron bind.cap.(TI BC) 370 ug/dL 250-45 0 Not Available [facility] ([facility]) [address] [facility], [place], [address], 06/23/2022 07:14:28 06/23/19 23 06/23/2022 IRON AND TIBC UIBC 356 ug/dL 131-42 5 Not Available [facility] ([facility]) [address] [facility], [place], [address], 06/23/2022 07:14:28 06/23/19 23 06/23/2022 IRON AND TIBC iron 14 ug/dL 27-159 below low normal Not Available [facility] ([facility]) [address] [facility] [place], [address], 06/23/2022 07:14:28 06/23/19 23 06/23/2022 IRON AND TIBC iron saturation 4 % 15-55 alert low Not Available [facility] ([facility]) [address] [facility] [place], [address], 06/23/2022 07:14:28 06/23/19 23 06/23/2022 MALICK TIN ferritin 5 NG/mL 15-150 below low normal Not Available [facility] ([facility]) [address] [facility] [place], [address], 06/23/2022 07:14:28 06/23/19 23 06/23/2022 RETIC ULOCY TE COUNT reticulocyte count 1.6 % 0.6-2. 6 Not Available [facility] ([facility]) [address] [place], [address], 06/23/2022 07:14:29 06/23/19 23 06/23/2022 COMP. METAB OLIC PANEL (14) glucose 89 mg/dL 70-99 Not Available [facility] ([facility]) [address] [facility] [place], [address], 06/23/2022 07:14:32 06/23/19 23 06/23/2022 COMP. METAB OLIC PANEL (14) BUN 18 mg/dL 6-20 Not Available [facility] ([facility]) [address] [place], [address], 06/23/2022 07:14:32 06/23/19 23 06/23/2022 COMP. METAB OLIC PANEL (14) creatinine 0.68 mg/dL 0.57-1 .00 Not Available [facility] ([facility]) [address] [place], [address], 06/23/2022 07:14:32 04/27/20 23 06/23/2022 COMP. METAB OLIC PANEL (14) eGFR 120 mL/mi n/1.7 3 >59 Not Available [facility] ([facility]) [address] [place], [address], 06/23/2022 07:14:32 06/23/19 23 06/23/2022 COMP. METAB OLIC PANEL (14) BUN/creatini ne ratio 26 9-23 above high normal Not Available [facility] ([facility]) [address] [facility], [place], [address], 06/23/2022 07:14:32 06/23/19 23 06/23/2022 COMP. METAB OLIC PANEL (14) sodium 141 mmol/ L 134-14 4 Not Available [facility] ([facility]) [address] [place], [address], 06/23/2022 07:14:32 06/23/19 23 06/23/2022 COMP. METAB OLIC PANEL (14) potassium 4.6 mmol/ L 3.5-5. 2 Not Available [facility] ([facility]) [address] [place], [address], 06/23/2022 07:14:32 06/23/19 23 06/23/2022 COMP. METAB OLIC PANEL (14) chloride 103 mmol/ L 96-106 Not Available [facility] ([facility]) [address] [place], [address], 06/23/2022 07:14:32 06/23/19 23 06/23/2022 COMP. METAB OLIC PANEL (14) carbon dioxide, total 21 mmol/ L 20-29 Not Available [facility] ([facility]) [address] [place], [address], 06/23/2022 07:14:32 06/23/19 23 06/23/2022 COMP. METAB OLIC PANEL (14) calcium 9.9 mg/dL 8.7-10 .2 Not Available [facility] ([facility]) [address] [facility], [place], [address], 06/23/2022 07:14:32 06/23/19 23 06/23/2022 COMP. METAB OLIC PANEL (14) protein, total 7.3 g/dL 6.0-8. 5 Not Available [facility] ([facility]) [address] [facility], [place], [address], 06/23/2022 07:14:32 06/23/19 23 06/23/2022 COMP. METAB OLIC PANEL (14) albumin 4.7 g/dL 3.9-5. 0 Not Available [facility] ([facility]) [address] [facility], [place], [address], 06/23/2022 07:14:32 06/23/19 23 06/23/2022 COMP. METAB OLIC PANEL (14) globulin, total 2.6 g/dL 1.5-4. 5 Not Available [facility] ([facility]) [address] [facility], [place], [address], 06/23/2022 07:14:32 06/23/19 23 06/23/2022 COMP. METAB OLIC PANEL (14) A/G ratio 1.8 1.2-2. 2 Not Available [facility] ([facility]) [address] [facility], [place], [address], 06/23/2022 07:14:32 06/23/19 23 06/23/2022 COMP. METAB OLIC PANEL (14) bilirubin, total <0.2 mg/dL 0.0-1. 2 Not Available [facility] ([facility]) [address] [facility], [place], [address], 06/23/2022 07:14:32 06/23/19 23 06/23/2022 COMP. METAB OLIC PANEL (14) alkaline phosphatase 47 IU/L 44-121 Not Available [facility] ([facility]) [address] [facility], [place], [address], 06/23/2022 07:14:32 06/23/19 23 06/23/2022 COMP. METAB OLIC PANEL (14) AST (SGOT) 14 IU/L 0-40 Not Available [facility] ([facility]) [address] [facility], [place], [address], 06/23/2022 07:14:32 06/23/19 23 06/23/2022 COMP. METAB OLIC PANEL (14) ALT (SGPT) 11 IU/L 0-32 Not Available [facility] ([facility]) [address] [facility], [place], [address], 06/23/2022 07:14:32 06/23/19 23 06/23/2022 CBC WITH DIFFE RENTI AL/PL ATELE T WBC 8.9 x10e3 /uL 3.4-10 .8 Not Available [facility] ([facility]) [address] [facility] [place], [address], 06/23/2022 07:14:32 06/23/19 23 06/23/2022 CBC WITH DIFFE RENTI AL/PL ATELE T RBC 4.18 x10e6 /uL 3.77-5 .28 Not Available [facility] ([facility]) [address] [facility], [place], [address], 06/23/2022 07:14:32 06/23/19 23 06/23/2022 CBC WITH DIFFE RENTI AL/PL ATELE T hemoglobin 9.6 g/dL 11.1-1 5.9 below low normal Not Available [facility] ([facility]) [address] [facility] [place], [address], 06/23/2022 07:14:32 06/23/19 23 06/23/2022 CBC WITH DIFFE RENTI AL/PL ATELE T hematocrit 31.6 % 34.0-4 6.6 below low normal Not Available [facility] ([facility]) [address] [facility], [place], [address], 06/23/2022 07:14:32 06/23/19 23 06/23/2022 CBC WITH DIFFE RENTI AL/PL ATELE T MCV 76 fL 79-97 below low normal Not Available [facility] ([facility]) [address] [facility], [place], [address], 06/23/2022 07:14:32 06/23/19 23 06/23/2022 CBC WITH DIFFE RENTI AL/PL ATELE T MCH 23.0 pg 26.6-3 3.0 below low normal Not Available [facility] ([facility]) [address] [facility], [place], [address], 06/23/2022 07:14:32 06/23/19 23 06/23/2022 CBC WITH DIFFE RENTI AL/PL ATELE T MCHC 30.4 g/dL 31.5-3 5.7 below low normal Not Available [facility] ([facility]) [address] [place], [address], 06/23/2022 07:14:32 06/23/19 23 06/23/2022 CBC WITH DIFFE RENTI AL/PL ATELE T RDW 17.3 % 11.7-1 5.4 above high normal Not Available [facility] ([facility]) [address] [place], [address], 06/23/2022 07:14:32 06/23/19 23 06/23/2022 CBC WITH DIFFE RENTI AL/PL ATELE T platelets 324 x10e3 /uL 150-45 0 Not Available [facility] ([facility]) [address] [facility], [place], [address], 06/23/2022 07:14:32 06/23/19 23 06/23/2022 CBC WITH DIFFE RENTI AL/PL ATELE T neutrophils 87 % notest ab. Not Available [facility] ([facility]) [address] [facility], [place], [address], 06/23/2022 07:14:32 06/23/19 23 06/23/2022 CBC WITH DIFFE RENTI AL/PL ATELE T lymphs 10 % notest ab. Not Available [facility] ([facility]) [address] [facility], [place], [address], 06/23/2022 07:14:32 06/23/19 23 06/23/2022 CBC WITH DIFFE RENTI AL/PL ATELE T monocytes 3 % notest ab. Not Available [facility] ([facility]) [address] [facility], [place], [address], 06/23/2022 07:14:32 06/23/19 23 06/23/2022 CBC WITH DIFFE RENTI AL/PL ATELE T eos 0 % notest ab. Not Available [facility] ([facility]) [address] [facility], [place], [address], 06/23/2022 07:14:32 06/23/19 23 06/23/2022 CBC WITH DIFFE RENTI AL/PL ATELE T basos 0 % notest ab. Not Available [facility] ([facility]) [address] [facility], [place], [address], 06/23/2022 07:14:32 06/23/19 23 06/23/2022 CBC WITH DIFFE RENTI AL/PL ATELE T neutrophils (absolute) 7.6 x10e3 /uL 1.4-7. 0 above high normal Not Available [facility] ([facility]) [address] [facility], [place], [address], 06/23/2022 07:14:32 06/23/19 23 06/23/2022 CBC WITH DIFFE RENTI AL/PL ATELE T lymphs (absolute) 0.9 x10e3 /uL 0.7-3. 1 Not Available [facility] ([facility]) [address] [facility], [place], [address], 06/23/2022 07:14:32 06/23/19 23 06/23/2022 CBC WITH DIFFE RENTI AL/PL ATELE T monocytes(ab solute) 0.3 x10e3 /uL 0.1-0. 9 Not Available [facility] ([facility]) [address] [facility], [place], [address], 06/23/2022 07:14:32 06/23/19 23 06/23/2022 CBC WITH DIFFE RENTI AL/PL ATELE T eos (absolute) 0.0 x10e3 /uL 0.0-0. 4 Not Available [facility] ([facility]) [address] [facility], [place], [address], 06/23/2022 07:14:32 06/23/19 23 06/23/2022 CBC WITH DIFFE RENTI AL/PL ATELE T baso (absolute) 0.0 x10e3 /uL 0.0-0. 2 Not Available [facility] ([facility]) [address] [facility], [place], [address], 06/23/2022 07:14:32 06/23/19 23 06/23/2022 CBC WITH DIFFE RENTI AL/PL ATELE T immature granulocytes 0 % notest ab. Not Available [facility] ([facility]) [address] [place], [address], 06/23/2022 07:14:32 06/23/19 23 06/23/2022 CBC WITH DIFFE RENTI AL/PL ATELE T immature grans (abs) 0.0 x10e3 /uL 0.0-0. 1 Not Available [facility] ([facility]) [address] [facility], [place], [address], 06/23/2022 07:14:32 05/04/19 24 05/04/2023 Urina lysis macro (dips tick) panel - Urine glucose UA neg text: negati ve Gluco se UA neg Negat fazal [facility] Not Available Not Available 05/01/2024 14:16:16 05/04/19 24 05/04/2023 Urina lysis macro (dips tick) panel - Urine bilirubin UA neg text: negati ve Bilir ubin UA neg Negat fazal [facility] Not Available Not Available 05/01/2024 14:16:16 05/04/19 24 05/04/2023 Urina lysis macro (dips tick) panel - Urine ketone UA neg text: negati ve [place] e UA neg Negat fazal [facility] Not Available Not Available 05/01/2024 14:16:16 05/04/19 24 05/04/2023 Urina lysis macro (dips tick) panel - Urine specific gravity UA poct 1.005 low: 1high: 1.03 Speci fic Gravi ty UA POCT 1.005 1.000 - 1.030 [facility] Not Available Not Available 05/01/2024 14:16:16 05/04/19 24 05/04/2023 Urina lysis macro (dips tick) panel - Urine blood UA neg text: negati ve Blood UA neg Negat fazal [facility] Not Available Not Available 05/01/2024 14:16:16 05/04/19 24 05/04/2023 Urina lysis macro (dips tick) panel - Urine pH UA 6.5 text: 5.0 - 8.0 pH units pH UA 6.5 5.0 - 8.0 pH units [facility] Not Available Not Available 05/01/2024 14:16:16 05/04/19 24 05/04/2023 Urina lysis macro (dips tick) panel - Urine protein UA neg text: negati ve Prote in UA neg Negat fazal [facility] Not Available Not Available 05/01/2024 14:16:16 05/04/19 24 05/04/2023 Urina lysis macro (dips tick) panel - Urine urobilinogen UA 0.2 eu/dL low: 0.2eu/ dLhigh : 1eu/dL Urobi linog en UA 0.2 0.2 - 1.0 EU/dL [facility] Not Available Not Available 05/01/2024 14:16:16 05/04/19 24 05/04/2023 Urina lysis macro (dips tick) panel - Urine nitrite UA neg text: negati ve Nitri te UA neg Negat fazal [facility] Not Available Not Available 05/01/2024 14:16:16 05/04/19 24 05/04/2023 Urina lysis macro (dips tick) panel - Urine leukocyte UA neg text: negati ve Leuko cyte UA neg Negat fazal [facility] Not Available Not Available 05/01/2024 14:16:16 05/04/19 24 05/04/2023 Urina lysis macro (dips tick) panel - Urine QC verified Yes text: yes QC Verif ied Yes Yes [facility] Not Available Not Available 05/01/2024 14:16:16 05/04/19 24 05/04/2023 Chori ogona dotro pin (preg alexa test) [Pres ence] in Urine choriogonado tropin ( test) [presence] in urine Negati ve text: negati ve HCG Qual Urine Negat fazal Negat fazal [facility] Not Available Not Available 05/01/2024 14:16:16 05/04/19 24 05/04/2023 Chori ogona dotro pin (preg alexa test) [Pres ence] in Urine QC verified Yes text: yes QC Verif ied Yes Yes [facility] Not Available Not Available 05/01/2024 14:16:16 02/17/20 24 02/17/2024 SARS- CoV-2 (COVI D-19) RNA [Pres ence] in Speci men by SCOT with probe detec tion Unknown [facility] Not Available Not Available 07/2024 14:16:34 04/22/19 25 04/22/2024 Compr ehens fazal metab olic 2000 panel - Serum or Plasm a Unknown [facility]te Not Available Not Available 07/2024 14:16:33 04/22/19 25 04/22/2024 CBC W Auto Diffe renti al panel - Blood Unknown [facility] Not Available Not Available 07/2024 14:16:33 04/25/1904/25/2024 Iron panel - Serum or Plasm a iron [mass/volume ] in serum or plasma 14 text: 25 - 156 mcg/dL low IRON 14 (L) 25 - 156 mcg/d L 04/25 5:54 PM [facility] [facility] Not Available Not Available 05/01/2024 14:16:34 04/25/1904/25/2024 Iron panel - Serum or Plasm a transferrin [mass/volume ] in serum or plasma 306 mg/dL low: 180mg/ dLhigh : 382mg/ dL TRANS MALICK N 306 180 - 382 mg/dL 04/25 5:54 PM [employer] [facility] Not Available Not Available 05/01/2024 14:16:34 04/25/1904/25/2024 Iron panel - Serum or Plasm a iron binding capacity [mass/volume ] in serum or plasma 383 text: 265 - 497 mcg/dL TIBC, CALCU LATED 383 265 - 497 mcg/d L 04/25 5:54 PM [employer] [facility] Not Available Not Available 05/01/2024 14:16:34 04/25/1904/25/2024 Iron panel - Serum or Plasm a iron saturation [mass fraction] in serum or plasma 4 % low: 15%hig h: 62% low % SATUR ATION * 4 (L) 15 - 62 % 04/25 5:54 PM [facility] [employer] Not Available Not Available 05/01/2024 14:16:34 04/25/1904/25/2024 Iron panel - Serum or Plasm a interpretati on and review of laboratory results Abnorm al Not Available Not Available 14:16:34 04/25/19 25 04/25/2024 Cobal silva (Rea min B12) [Mass /volu me] in Serum or Plasm a cobalamin (vitamin B12) [mass/volume ] in serum or plasma 474 pg/mL low: 213pg/ mLhigh : 816pg/ mL VITAM IN B12 474 213 - 816 pg/mL 04/25 6:25 PM [employer] [facility] Not Available Not Available 05/01/2024 14:16:34 04/25/19 25 04/25/2024 Cobal silva (Rea min B12) [Mass /volu me] in Serum or Plasm a interpretati on and review of laboratory results Normal Not Available Not Available 07/2024 14:16:34 04/25/19 25 04/25/2024 Folat e [Mass /volu me] in Serum or Plasm a folate [mass/volume ] in serum or plasma 6.6 NG/mL low: 7NG/mL high: 31.4NG /mL low FOLAT E 6.6 (L) 7.0 - 31.4 ng/mL 04/25 6:25 PM [facility] [facility] Not Available Not Available 05/01/2024 14:16:34 04/25/19 25 04/25/2024 Folat e [Mass /volu me] in Serum or Plasm a thermoactino myces vulgaris IgG Ab [mass/volume ] in serum No IS THE PATIE NT REQUI RED TO BE FASTI NG? No 04/25 6:25 PM [facility] [employer] [facility] Not Available Not Available 05/01/2024 14:16:34 04/25/19 25 04/25/2024 Folat e [Mass /volu me] in Serum or Plasm a interpretati on and review of laboratory results Abnorm al Not Available Not Available 14:16:34 04/25/19 25 04/25/2024 Malick tin [Mass /volu me] in Serum or Plasm a ferritin [mass/volume ] in serum or plasma 3 NG/mL low: 5NG/mL high: 204NG/ mL low MALICK TIN 3 (L) 5 - 204 ng/mL 04/25 6:13 PM [facility] Not Available Not Available 05/01/2024 14:16:33 04/25/19 25 04/25/2024 Malick tin [Mass /volu me] in Serum or Plasm a interpretati on and review of laboratory results Abnorm al Not Available Not Available 14:16:33 05/25/19 CT, angio gram, chest + abdom en + pelvi s, w/ contr ast No observ ation record ed. [email or web address] Not Available 2022 11:35:16 09/11/19 25 09/10/2024 US, pelvi s, trans abdom inal + trans vagin al No observ ation record ed. [email or web address] Not Available 2024 16:57:23 09/11/19 25 09/10/2024 CT, abdom en + pelvi s, w/ contr ast No observ ation record ed. [email or web address] Not Available 15:46:12 Result Notes None recorded. Problems Name Problem SNOMED Code Status Onset Date Resolution Date Notes Provider Name and Address Organization Details Recorded Time Lupus erythematos 826354382 Active 2020 MOHINDER MCDERMOTT MD Attn: Accounting ,[address] [place], [address] , [facility] 4 11:36:47 [place]'s disease 013042017 Active 2020 MOHINDER MCDERMOTT MD Attn: Accounting ,[address] [place], [address] , [facility] - [facility] 4 11:36:45 Generalized anxiety disorder 36096954 Active 2023 MOHINDER MCDERMOTT MD Attn: Accounting ,[address] [place], [address] , [facility] - [facility] 4 11:36:32 Attention deficit hyperactivi ty disorder 320585036 Active 2023 MOHINDER MCDERMOTT MD Attn: Accounting ,[address] [place], [address] , [facility] - [facility] 4 11:36:36 Epilepsy 37153523 Active 2023 MOHINDER MCDERMOTT MD Attn: Accounting ,[address] [place], [address] , [facility] - [facility] 4 11:36:42 Testosteron e level below reference range 011022786 Active 2023 Last checked in 2021 MOHINDER MCDERMOTT MD Attn: Accounting ,[address] [place], [address] , [place] - [facility] 4 11:37:05 Microcytic anemia 037840429 Active 2023 MOHINDER MCDERMOTT MD Attn: Accounting ,[address] [place], [address] , [place] - [facility] 4 11:37:49 Vitamin D deficiency 44917685 Active 2023 MOHINDER MCDERMOTT MD Attn: Accounting ,[address] [place], [address] , [facility] - [facility] 4 11:38:10 Body mass index 30+ - obesity 057317153 Active 2023 MOHINDER MCDERMOTT MD Attn: Accounting ,[address] [place], [address] , [facility] - [facility] 4 11:38:31 Problem Notes None recorded. Procedures Surgical History Date Name Laterality Status Provider Name and Address Organization Details Recorded Time 02/23/20 21 Date of Last Pap Smear completed BELLO Dyer [facility] 02/22/2021 10:36:38 lupus anticoagulant assay completed BELLO Dyer [facility] 02/22/2021 10:30:39 Imaging Results None recorded. Procedure Notes None recorded. Medical Equipment None Reported. Allergies Allergen ID Allergen Name Allergen Category Reaction Reaction Severity Criticality Documentation Date Start Date Code Code System Note Provider Name and Address Organization Details Recorded Time [id number] Substance with sulfonami de structure and antibacte rial mechanism of action (substanc e) medicatio n Not available Not available Not available 08/24/2021 63093 8003 SNOMED I have lupus so I can't take it. BELLO [place], [place] - [facility] 2 17:32:29 [id number] penicilli n G Not available Not available Not available Not available 08/24/2021 7980 RxNorm Lexi Noriega Dianelys [facility] [place], [place] - [facility] 2 17:32:44 [id number] aripipraz ole medicatio n Not available Not available low 01/09/20252020 20617 RxNorm unrec ogniz ed react ion (text : Other , code: 13792 07) (from exter nal sour e) Not Available [facility] - [employer] - prod 5 16:48:45 847735 escitalop tiera Not available rash Not available high 01/09/20252019 22188 8 RxNorm Cause d seizu res Cause d seizu res Cause d seizu res Cause d seizu res Cause d seizu res Cause d seizu res unrec ogniz ed react ion (text : Other , code: 01474 07) (from exter nal sourc e) Not Available [facility] - External Data [employer] - prod 5 16:48:45 601232 methylpre dnisolone medicatio n Not available Not available Not available 01/09/20252018 6902 RxNorm Synco pe unrec ogniz ed react ion (text : Other , code: 00562 07) (from exter nal sourc e) Not Available [facility] - [employer] - prod 5 16:48:45 318142 venlafaxi ne medicatio n itching Not available low 01/09/20252019 78841 RxNorm Not Available [facility] [employer] [facility] [employer] - prod 5 16:48:45 881944 amoxicill in medicatio n rash Not available Not available 01/09/20252019 723 RxNorm Not Available [facility] - [employer] - prod 5 16:50:33 268404 clindamyc in Not available rash Not available Not available 01/09/20252021 2582 RxNorm Not Available [facility] [employer] - prod 5 16:50:33 579824 doxycycli ne Not available other Not available Not available 01/09/20252024 3640 RxNorm Not Available [facility] - [employer] - prod 16:50:33 700576 metoclopr amide Not available other Not available low 01/09/20252020 6915 RxNorm Not Available [facility] [employer] - prod 16:50:33 762847 Product containin g penicilli n (product) medicatio n hives Not available Not available 01/09/20252020 40465 8001 SNOMED unrec ogniz ed react ion (text : Throa t swell ing, code: 34640 000) (from [facility] e) Not Available [facility] - [employer] Data [employer] - prod 16:50:34 432905 azathiopr ine medicatio n hives Not available high 01/09/20252020 1256 RxNorm Not Available [facility] - [employer] - prod 16:52:26 [id number] nitrofura ntoin, macrocrys tals / nitrofura ntoin, monohydra te medicatio n rash Not available high 01/09/20252020 74128 2 RxNorm Rash and Blist ers in her mouth . unrec ogniz ed react ion (text : Blist ers, code: 31598 7009) (from [facility] e) Not Available [facility] - [employer] - prod 16:52:26 [id number] sulfameth oxazole / trimethop rim medicatio n other Not available low 01/09/20252020 20449 RxNorm Canno t take bactr im becau se of lupus Not Available [facility] - [employer] - prod 16:52:26 178192 metoclopr amide hydrochlo ride medicatio n Not available Not available Not available 01/09/20252020 22843 6 RxNorm nause a Not Available [facility] - [employer] - prod 16:52:44 Medications Name Sig Start Date Stop Date Status Note LastModified by Organization Details LastModified Time antacid/dip hen/lido 111 mouthwas SWISH AND SWALLOW 10 MLS BY MOUTH EVERY 4 HOURS NEEDED 03/08 /2023 completed Not Available Not Available Not Available cetirizine 5 mg-pseudoep hedrine ER 120 mg tablet,exte nded release,12h r TAKE 1 TABLET BY MOUTH TWICE DAILY FOR 14 DAYS 05/03 completed Not Available Not Available Not Available hydrocortis one 5 mg tablet TAKE 2 TABLETS IN THE AM AND 1 TABLET AT 2 PM. active Not Available Not Available No t Available amoxicillin 500 mg capsule TAKE 1 CAPSULE BY MOUTH THREE TIMES A DAY FOR 7 DAYS 02/22 completed Not Available Not Available Not Available fluconazole 100 mg tablet TAKE 1 TABLET BY MOUTH EVERY DAY 05/23 completed Not Available Not Available Not Available promethazin e-DM 6.25 mg-15 mg/5 mL [...] Not Available Not Available No t Available Pyridium 100 mg tablet Take 1 tablet 3 times a day by oral route. 08/04 completed Not Available Not Available Not Available terconazole 0.8 % vaginal cream Insert 1 applicato rful every day by vaginal route at bedtime for 3 days. 2024 active Not Available Not Available Not Avai lable clobetasol 0.05 % topical cream APPLY TOPICALLY TO THE AFFECTED AREA TWICE DAILY FOR 14 DAYS 02/07 completed Not Available Not Available Not Available clindamycin HCl 150 mg capsule TAKE 1 CAPSULE BY MOUTH 3 TIMES A DAY UNTIL FINISHED 05/23 completed Not Available Not Available Not Available [...] completed Not Available Not Available Not Available Macrobid 100 mg capsule Take 1 capsule every 12 hours by oral route for 5 days. 09/12 completed Not Available Not Available Not Available [...] vaginal route at bedtime for 5 days. 05/23 completed Not Available Not Available Not Available prednisone 1 mg tablet TAKE 4 TABLETS BY MOUTH DAILY. active Not Available Not Available No t Available meclizine 25 mg tablet 11/08 completed [...] Available hydroxychlo roquine 200 mg tablet TAKE 2 TABLETS BY MOUTH EVERY DAY active Not Available [...] pack TAKE ORAL TABS DIRECTED ON PACKAGE 02/07 completed Not Available Not Available Not [...] Not Available Not Available Sprintec (28) 0.25 mg-0.035 mg tablet TAKE 1 TABLET BY MOUTH [...] Not Available Not Available No t Available lactulose 10 gram/15 mL oral solution [...] active Not Available Not Available Not Available Tran 0.35 mg tablet TAKE 1 TABLET BY MOUTH EVERY DAY active Not Available Not Available No t Available Qsymia 3.75 mg-23 mg capsule, extended release TAKE 1 CAPSULE BY MOUTH ONCE DAILY active Not Available Not Available No t Available PrePlus 27 mg iron-1 mg tablet 02/22 completed Not Available Not Available Not Available Microgestin 24 FE 1 mg-20 mcg (24)/75 mg (4) tablet Take 1 tablet every day by oral route for 28 days. 11/08 completed Not Available Not Available Not [...] Not Available Vitals Date Recorded Body height Provider Name an d Address Organization Details Last Updated DateTime 03/22/2021 160.02 cm Aida Lieberman PEYTONDianelys [facility] 2021 14:54:28 Date Recorded Body height Body mass index (BMI) Body weight Systolic And Diastolic Provider Name and Address Organization Details Last Updated DateTime 05/03/2022 160.02 cm 31.3 kg/m2 18644.45 g 109/71 mm[Hg] BELLO Dyer [facility] 05/03/2022 14:17:03 Date Recorded Body height Body mass index (BMI) Body weight Systolic And Diastolic Provider Name and Address Organization Details Last Updated DateTime 05/23/2024 160.02 cm 30.3 kg/m2 39720.3 g 134/83 mm[Hg] Aida Lieberman Dianelys [facility] 05/23/2024 10:01:18 Date Recorded Body height Body mass index (BMI) Body weight Heart rate Respiratory rate Systolic And Diastolic Provider Name and Address Organization Details Last Updated DateTime 160.02 cm 31.3 kg/m2 62583.0 6 g 71 /min 18 /min 124/80 mm[Hg] Анна Underwood [facility] 4 15:10:54 Date Recorded Body height Body mass index (BMI) Body weight Systolic And Diastolic Provider Name and Address Organization Details Last Updated DateTime 08/03/2021 160.02 cm 30.4 kg/m2 62982.1 g 118/72 mm[Hg] Nuzhat Cristobal MA [facility] 08/03/2021 10:54:52 Social History Question Answer Notes LastModified by Organizat ion Details LastModified Time Tobacco Smoking Status Never Smoker BELLO Dyer [facility] 02/22/2021 10:37:29 In The 14 Days Before Symptom Onset, Have You Had Close Contact With A Laboratory-confirm ed COVID-19 While That Case Was Ill? No [email or web address] Information n ot available 07/04/2023 In The 14 Days Before Symptom Onset, Have You Had Close Contact With A Person Who Is Under Investigation For COVID-19 While That Person Was Ill? No [email or web address] Information not available 07/04/2023 Have You Been To An Area Known To Be High Risk For COVID-19? No Information not available 07/04/2023 What Was The Date Of Your Most Recent Tobacco Screening? 05/23/2024 Information not available 05/23/2024 What Is Your Relationship Status? Information not available 05/23/2024 Are You Sexually Active? Yes Information not available 07/04/2023 Do You Have Smoke And Carbon Monoxide Detectors In Your Home? Yes [email or web address] Information not available 07/04/2023 Are You Passively Exposed To Smoke? No [email or web address] Information no t available 07/04/2023 Has Tobacco Cessation Counseling Been Provided? Yes Information not available 05/03/2022 On What Date Was Tobacco Cessation Counseling Provided? 05/23/2024 Information not available 05/23/2024 Sex: Female Functional Status Question Answer Note LastModified by Organizat ion Details LastModified Time Do you use any illicit or recreational drugs? No Information not available 05/03/2022 What is your level of alcohol consumption? Moderate Information not available 05/23/2024 Mental Status None recorded. Family History Nothing Reported. Medical History Condition Response Depression Y Anxiety Disorder Y Gynecological History Statement/Question Response Flow Heavy Date of LMP 05/14/2024 Menses Monthly Y STIs/STDs Yes Date of Last Pap Smear 02/22/2021 Duration of Flow (days) 7 Current Control Method None LMP Definite Obstetrics History GPAL:G 3 P 1 0 2 1 Type Value Full Term 1 Spontaneous 2 Living 1 Total 3 Past Encounters Encounter ID Performer Location Encounter Start Date Encounter Closed Date Diagnosis/Indication Diagnosis SNOMED-CT Code Diagnosis ICD10 Code Diagnosis IMO Codes Diagnosis Note [id number] MD [place] [facility] [address] [place] [address] 01/29/2020 13:19:34 01/30/2020 07:49:32 Viral screening 572903168 Z11.59 D/w pt the current pandemic of COVID-19 and call for social isolation in order to blunt the curve and minimize risk and spread. Encouraged patient and family to take restrictio ns seriously. They have verbalized understand ing of such. Viral syndrome 244247063 B34.9 [id number] BRENDA Rice [address] [place] [address] 02/22/2021 10:15:21 02/23/2021 05:03:08 Gynecologic examination 93274697 Z01.419 1. Counseled regarding prevention of STD's , condom use and prevention . 2. Counseled regarding contracept fazal options, risk factors and side effects. 3. Advised avoidance of tobacco, alcohol, and drugs . 4. Counseled regarding folic acid supplement ation, calcium needs and prevention of osteoporos is . 5. BSE reviewed and recommende d. 6. Follow up in one year or sooner if needed. Contracept ion care management 080095891 Z30.9 1. All forms of control reviewed with patient including risks, benefits, pros and cons. 2. Patient verbalized understand ing of all forms and that abstinence is the only true form of control. 3. Condom use reviewed as well and prevention and transmissi on of STD's. Mass of right breast 422 5613319 3980152 N63.10 Pt to continue to follow with Dr. Cooney. Pt aware and verbalized understand ing. [id number] BRENDA Rice [address] [place] [address] 03/22/2021 14:49:10 03/23/2021 06:04:00 Menorrhagia 213484108 N92.0 Pt encouraged to keep period tracker for next several months. Educated on things that can cause cycle to become irregular including but not limited to stress, exercise, weight loss, weight gain, major life changes etc. Pt verbalized understand ing. Will follow up in 3 months to discuss if meds are helping and if to continue on ocp therapy. [id number] BRENDA Rice [address] [place] [address] 08/03/2021 10:42:49 08/04/2021 08:09:02 Malaise and fatigue 002562167 R53.81 Labs drawn per patient request for malaise, fatigue and weight gain. Will follow up pending results. Discussed sleep health and aids like melatonin. Weight gain 2792884 R63. 5 Discussed diet and weight loss. Discussed making healthier food choices and increasing exercise. Discussed going to a talk show host. Will prescribe Plenity and follow up in 2 months. Pt v/u. Obesity 929350620 E66.9 Menorrhagia 658723065 N9 2.0 Pt encouraged to keep period tracker for next several months. Educated on things that can cause cycle to become irregular including but not limited to stress, exercise, weight loss, weight gain, major life changes etc. Pt verbalized understand ing. Will follow up in 3 months to discuss if meds are helping and if to start hormonal therapy. Pt is interested in an ablation, will discuss with and let us know. 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 Reviewed transmissi on and prevention of STD's including condom use 2. Reviewed medication use and instructio n on taking all meds to prevention occurences .3. Pt informed to have partner(s) informed and treated and avoid intercours e during breakouts. Diastasis recti 10576699 M62.08 Will refer to general surgeon per patients request. Discussed exercise and abdominal binding. Reduced libido 7958000 R 68.82 Discussed ways to improve sex drive. [id number] [facility] [address] [facility] [address] [place] [address] 05/03/2022 13:56:58 05/04/2022 08:30:36 Dysuria 77774774 R30.0 1. Will monitor as dip was negative. 2. Pt instructed to increase fluids, decrease soda, sugary beverages and caffeinate d beverages. 3. To call office if symptoms worsen or do not improve changes. Vaginal discharge 519429 006 N89.8 Nuswab done and sent to lab. Counseled on STD prevention and condom use. Counseled on yeast and BV prevention . Will follow up pending lab results. Morbid obesity 891058909 E66.01 Reviewed s/s and s/e of ozempic. Will try med and follow up in 2 months. Pt v/u. [id number] Jayda Adamson, TRAVEL RN OR- [place] 14 OB [address] [facility] [place] [address] 07/04/2023 14:49:24 07/11/2023 10:58:45 Vaginal discharge 988208665 N89.8 Counseled on STD prevention and condom use. Counseled on yeast and BV prevention . Will follow up pending lab results of testing done at Dr. Crowder office yesterday. Obesity 078786805 E66.9 [id number] MD Idris Castelan 14 OB [address] [facility] [place] [address] 05/23/2024 09:47:13 05/26/2024 15:27:52 Positive screening for depression on PHQ-9 (Patient Health Questionnaire 9) 2092990031 76664 Z13.31 Denies thoughts of self harm or harming others. Pt instructed to call 911 if depression worsens or go to ED. Body mass index 30+ - obesity 267591728 Z68.30 Discussed diet and weight loss. Discussed making healthier food choices and increasing exercise. Discussed going to a talk show host. Menorrhagia 476853091 N9 2.0 Pt encouraged to keep period tracker for next several months. Educated on things that can cause cycle to become irregular including but not limited to stress, exercise, weight loss, weight gain, major life changes etc. Pt verbalized understand ing. Will follow up in 3 months to discuss if meds are helping and if to start hormonal therapy. Pt is interested in an ablation, will discuss with and let us know. Health Concerns Section Related Observation LastModified by Organization Detai ls LastModified Time None Recorded Concern Status LastModified by Organization Details LastModified Time None Recorded Advance Directives Directive None Recorded Payers Insurance Date Sequence Insurance Name Policy Number Policy Mendieta Covered Member ID Mendieta Member ID Guarantor Name 09/29/2021 SLIDING FEE SCHEDULE - DISCOUNT Carito Madison 08/03/2021 [id number] Carito Madison [id number] Carito Madison 09/29/2021 1 *SELF PAY* Co urkelsey Madison 05/03/2022 SLIDING FEE SCHEDULE - DISCOUNT Carito Madison 01/29/2020 1 *SELF PAY* Co urkelsey Madison 04/28/2024 SLIDING FEE SCHEDULE - DISCOUNT Carito Madison 04/28/2024 SLIDING FEE SCHEDULE - DISCOUNT Carito Madison 07/04/2023 SLIDING FEE SCHEDULE - DISCOUNT Carito Madison 08/03/2021 1 [facility] [id number] Carito Rausch [id number] Cartio Madison 09/29/2021 1 [place] [id number] Carito Madison [id number] Carito Madison 08/03/2021 1 [employer] (PPO) [id number] Carito Madison [id number] Carito Madison 09/28/2021 1 [employer] (EPO) [id number] Carito Madison [id number] Carito Madison 07/04/2023 SLIDING FEE SCHEDULE - DISCOUNT Carito Madison Notes Date Note Type Note Provider Name and Address Organization Details Recorded Time 2 text/html Annual GYNReported by PatientGenitourinary symptomsFor urinary symptoms, patient reportsno hematuriaandno incontinence. For vulva, patient reportsno genital lesion. For vagina, patient reportsnormal vaginal discharge.Breast symptomsFor breast, patient reportsno breast pain,no breast lump, andno nipple discharge.ContraceptionFo r current contraception, patient reportsbirth control not practiced.Endocrine symptomsFor sexual complaints, patient reportsno sexual complaints,no pain during intercourse, andnormal libido. For menopausal symptoms, patient reportsno menopausal symptomsandnormal vaginal lubrication.Psychological symptomsFor psychological symptoms, patient reportsno depression,no anxiety, andno pmdd.Preventative measuresFor preventive measures, patient reportsencourage self breast examination,encourage regular exercise,encourage no tobacco use,encourage regular mammograms starting age 40, andfollowed with q3 year pap smear and high risk hpv typing.ROS as noted in the HPI phone visit due to having covidstarted cycle Sunday, went out sunday night for drinks, woke up sunday morning pouring blood, second cycle since having baby- states she bled for 6 weeks following c[facility], was given ocp but throwing upbleeding is better now, gets bad at night time, first thing when waking, lessened todaypt states she was positive for covid march 05, 2021 [facility] Att[facility]: Accounting,[address], [place], [address], [place] [facility] 03/22/2021 15:05:09 2 text/html Annual GYNReported by PatientGenitourinary symptomsFor menstrual cycle, patient reportsmenorrhagia. For vulva, patient reportspainful genital lesionandmultiple sores. For urinary symptoms, patient reportsno hematuriaandno incontinence. For vagina, patient reportsnormal vaginal discharge.Breast symptomsFor breast, patient reportsno breast pain,no breast lump, andno nipple discharge.ContraceptionFo r current contraception, patient reportsbirth control not practiced.Endocrine symptomsFor sexual complaints, patient reportsdecreased libidobut reportsno sexual complaintsandno pain during intercourse. 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 For urinary symptoms, patient reportsno hematuriaandno incontinence. For vulva, patient reportsno genital lesion. For vagina, patient reportsnormal vaginal discharge.Breast symptomsFor breast, patient reportsno breast pain,no breast lump, andno nipple discharge.ContraceptionFo r current contraception, patient reportsbirth control not practiced.Endocrine symptomsFor sexual complaints, patient reportsdecreased libidobut reportsno sexual complaintsandno pain during intercourse. 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 For menstrual cycle, patient reportsnormal menses. For urinary symptoms, patient reportsno hematuriaandno incontinence. For vulva, patient reportsno genital lesion.Breast symptomsFor breast, patient reportsno breast pain,no breast lump, andno nipple discharge.ContraceptionFo r current contraception, patient reportsbirth control not practiced.Endocrine symptomsFor sexual complaints, patient reportsdecreased libidobut reportsno sexual complaintsandno pain during intercourse. 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 For urinary symptoms, patient reportsno hematuriaandno incontinence. For vulva, patient reportsno genital lesion. For vagina, patient reportsnormal vaginal discharge.Breast symptomsFor breast, patient reportsno breast pain,no breast lump, andno nipple discharge.ContraceptionFo r current contraception, patient reportsbirth control not practiced.Endocrine symptomsFor sexual complaints, patient reportsdecreased libidobut reportsno sexual complaintsandno pain during intercourse. 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 Will obtain records.- pt states she is wanting an ablation but unsure about having more children but wants something to help with cycles, pt is self pay so would need to save money for ablation BRENDA Rice Attn: Accounting,[address] [facility], [place], [address], [facility] 05/23/2024 10:36:16 OBGyn Episode Ob Episode Information Episode Created Date Number of Fetuses Patient Bloodtype Patient rh Status Prepregnancy Weight lbs Domestic Partner Domestic Partner Phone Father Name Machine Programmer Status 02/23/20 21 1 CLOSED Fetus Data First Name Last Name Admitted to NICU Weight (g) Sex Living Outcome Pediatric Complications Fetus ID Race Codes Race Delivery Type 3288.54 2 F Full Term [id number] Only Larry Calculation Initial Larry Date Initial Exam Date Initial Exam Provider Initial Ultrasound Date Last Menstrual Period Date Ultra Sound Weeks Gestation 0 Eighteen To Twenty Week Larry Update Ultra Sound Date Fundal Height At Umbil Quickening Date Ultra Sound Latest Weeks Gestation Final Larry Confirmed By Final Larry Confirmed Date Final Larry Date Ultra Sound Latest Days Gestation 0 0 Menstrual History Last Menstrual Date Menses Monthly On Bcp Conception Prior Menses Frequency Hcg Plus Date Menarche Onset Age Delivery Information Delivery Date Delivery Type Labor Anesthesia Weeks Gestation Incision Type Labor Labor Length Hrs Delivered By Post Complications Tubal Sterilization Discharge Date Comments 1 Regional- idural 36 Discharge Information Feeding Method Contraceptive Method Maternal HG B and HCT Levels
--- OUTSIDE RECORDS SUMMARY | 2025-01-09 19:01 | XMS_ITS | Patient Health Record ---
Author Organization [facility] Address [address] [facility] [address] [place], [place] [id number] Care Team Providers Care Dental Laboratory Manager Name Role Phone LYDIA HUBBARD, JANELLE Primary Care Provider Unav ailable Dayna Osborne Unavailable [phone] REASON FOR REFERRAL No Information MEDICATIONS Medication SIG (Take, Route, Frequency, Duration) Notes Start Date End Date Status predniSONE 10 mg 2 tab(s) orally once a day for 30 day(s) 03/27/2018 Active Hydroxychloroquine Sulfate 2 00 mg 1 tab(s) orally once a day for 30 day(s) 02/01/2018 Active azaTHIOprine 50 mg 1 tab(s) orally once a day for 30 day(s) 07/02/2018 Active PROBLEMS Problem Type ICD Code Onset Dates Problem Status W/U Status Risk SNOMED Code Notes Problem Arthralgia of multiple sites (M25.50) Active confirmed 17625322 Problem Microcytic anemia (D50.9) Active confirmed 087551802 Problem Systemic lupus erythematosus with other organ involvement, unspecified SLE type (M32.19) Active confirmed 05778146 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 381744141 PLAN OF TREATMENT Pending Test Test Name [...] (PFT) w/DLCO TPMT ([facility]) 05/03/2018 Echocardiogram 2-D 05/03/2018 Echocardiogram 2-D 03/26/2018 Insurance Providers Payer Name Payer Address Payer Phone Subscriber Number Group Number Insured Name Patient Relationship to Insured Coverage Start Date Coverage End Date [facility] [address] [place] [address] [id number] Carito Rausch Self - patient is the insured 0 MEDICAL (GENERAL) HISTORY Medical History History ICD Code ear ache sinus problems swollen glands in neck anemia poor circulation swelling of ankles/feet bloating diarrhea indigestion stomach pain/cramps painful intercourse weight gain anxiety depression herpes Surgical History Surgery Date(Month/Year) appendectomy 2012 D & C 2018
--- OUTSIDE RECORDS SUMMARY | 2025-01-09 19:01 | XMS_ITS | Encounter Summary ---
Author Organization [facility] Address [address] [place] [address] Phone Care Team Providers Care Wire Puller Name Role Phone Gayla Barker APRN, HARSHA Primary Care Provider Ct, [facility] Unavailable Marianela vailable Brian Mon MD Primary Care Provider [phone] Reason for Visit * Reason Comments Medication Refill Encounter Details Date Type Department Care Team (Late st Contact Info) Description 04/20/2020 Refill [facility] - Primary Care - [facility] [address] [place] [address] Gayla Barker APRN ACCOUNTS RECEIVABLE ASSOCIATE [address] [place] [address] Medication Refill Social History Tobacco [...] on file Legal Sex Female 10:27 AM ARMOURED CAR ESCORT Gender Identity Not on file Sexual Orientation Not on file COVID-19 Exposure Response Date Recorded In the last month, have you been in contact with someone who was confirmed or suspected to have Coronavirus / COVID-19? No / Unsure 04/07/2020 8:36 AM ARMOURED CAR ESCORT documented as of this encounter Plan of Treatment Not on file documented as of this encounter Visit Diagnoses Not on filedocumented in this encounter Additional Health Concerns Infection Onset Date Last Indicated Resolved Time COVID - 19 12/06/2020 12/06/2020 12/26/2020 12:1 6 AM CDT COVID - 19 03/05/2021 03/05/2021 03/05/2021 6:11 PM ARMOURED CAR ESCORT COVID - 19 Confirmed 03/05/2021 03/05/2021 022 12:16 AM ARMOURED CAR ESCORT COVID - 19 11/14/2021 11/18/2021 11/28/2021 12:1 6 AM CDT COVID - 19 01/08/2022 01/08/2022 01/18/2022 12:1 6 AM ARMOURED CAR ESCORT COVID - 19 04/25/2022 04/25/2022 05/05/2022 12:1 6 AM ARMOURED CAR ESCORT COVID - 19 10/17/2023 10/17/2023 10/17/2023 1:56 PM CDT COVID - 19 09/08/2024 09/08/2024 09/08/2024 2:54 PM CDT Respiratory Rule-Out 09/08/2024 09/08/2024 025 2:57 PM CDT Assessment Noted Time PHQ-9 Depression Total Score: 0 03/25/19 20 10:00 AM ARMOURED CAR ESCORT documented as of this encounter Care Teams Wire Puller Relationship Specialty Start Date End Date Gayla Barker, DAYCARE TEACHER, ACCOUNTS RECEIVABLE ASSOCIATE [address] [place] [address] PCP - General Advanced Practice Nurse 03/25/19 Brian Mon MD [address] [place] [address] PCP - General Internal Medicine 10/17/23 Ct, [facility] MS Digital MEKHI 09/03/19 documented as of this encounter
--- OUTSIDE RECORDS SUMMARY | 2025-01-09 19:01 | XMS_ITS | Clinical Summary ---
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 90 Tab 3 0 Active predniSONE (DELTASONE) 5 MG Tablet 1 Active OMEPRAZOLE PO Take 20 mg by mouth daily. Active valACYclovir (VALTREX) 500 MG Tablet Take 500 mg by mouth daily as needed. 2 Active sertraline (ZOLOFT) 25 MG TabletIndicati ons:Anxiety and depression Take 1 Tablet by mouth daily. 90 Tablet 3 5 Active Hydrocortisone Sod Suc, PF, (Solu-CORTEF) 100 MG Recon Soln 100 mg by Intramuscular route as needed for Other (Adrenal Crisis). 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 After that, can decrease the dose to 5 mg daily. Last Assessment & Plan: Endocrinology notes reviewed. Prednisone dose was increased on 11/30 to 7.5 mg/day. Plan for stress dose steroids intradelivery reviewed. 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 Also having diarrhea, N/V. Will schedule EGD and colonoscopy. BMI 29.0-29.9,adult 07/16/2019 Diarrhea 07/16/2019 Overview (07/25/2019): Added automatically from request for surgery [id number] Last Assessment & Plan: Pt says has [...] (07/25/2019): Added automatically from request for surgery [id number] Gastroesophageal reflux disease 07/16/2019 Overview (07/25/2019): Added automatically from request for surgery [id number] Liver lesion 07/16/2019 Overview (07/25/2019): Last Assessment & Plan: CT back in Dec 2018 showed multiple small liver lesions and CT done yesterday showed one small 11mm lesion on liver. Will get liver US to further evaluate. Recent CMP showed normal LFT's. Nausea and vomiting 07/16/2019 Overview (07/25/2019): Added automatically from request for surgery [id number] Last Assessment & Plan: Ongoing for several [...] 07/11/2018 Systemic lupus erythematosus 07/11/2018 Weakness 07/11/2018 Immunizations Immunization Administration Dates Next Due TDAP [...] = 0.6 oz pur e alcohol) Occasionally [employer] Answer Date Recorded In the past 12 months has [employer], gas, oil, or water [employer] threatened to shut off services in your home? Patient declined 04/25/2024 Social Connection and Isolation Panel Answer Date Recorded In a typical week, how many times do you talk on the phone with family, friends, or neighbors? Patient declined 04/25/2024 How often do you get togethe r with friends or relatives? Patient declined 04/25/2024 How often do you attend judaism or muslim serv ices? Patient declined 04/25/2024 Do you belong to any clubs o r organizations such as judaism groups, unions, fraternal or athletic groups, or school groups? Patient declined 04/25/2024 How often do you attend meet ings of the clubs or organizations you belong to? Patient declined 04/25/2024 Are you , , di vorced, , never , or living with a partner? Patient declined 04/25/2024 AUDIT-C Answer Date Recorded Q1: How often do you have a drink containing alc ohol? Patient declined 04/25/2024 Q2: How many drinks containi ng alcohol do you have on a typical day when you are drinking? Patient declined 04/25/2024 Q3: How often do you have si x or more drinks on one occasion? Patient declined 04/25/2024 Overall Financial Resource Strain (CARDIA) Answe r Date Recorded How hard is it for you to pa y for the very basics like food, housing, medical care, and heating? Patient declined 04/25/2024 PHQ-2 Answer Date Recorded Total Score - Questions 1-9 0 03/30 [facility] - Occupational Stress Questionnaire Answer Date Recorded Do you feel stress - tense, restless, nervous, or anxious, or unable to sleep at night because your mind is troubled all the time - these days? Patient declined 04/25/2024 Exercise Vital Sign Answer Date Recorde d On average, how many days pe r week do you engage in moderate to strenuous exercise (like a brisk walk)? Patient declined On average, how many minutes do you engage in exercise at this level? Patient declined 04/25/2024 Hunger Vital Sign Answer Date Recorded Within the past 12 months, y ou worried that your food would run out before you got the money to buy more. Patient declined Within the past 12 months, t he food you bought just didn't last and you didn't have money to get more. Patient declined PRAPARE - Transportation Answer Date Re corded In the past 12 months, has l ack of transportation kept you from medical appointments or from getting medications? Patient declined 04/25/2024 In the past 12 months, has l ack of transportation kept you from meetings, work, or from getting things needed for daily living? Patient declined 04/25/2024 Housing Stability Vital Sign Answer Mateo e Recorded In the last 12 months, was t here a time when you were not able to pay the mortgage or rent on time? Patient declined 04/25/19 Number of Times Moved in the Last Year Not on fi le 04/25/2024 At any time in the past 12 m [facility], were you homeless or living in a assisted (including now)? Patient declined 04/25/2024 AUDIT-C Answer Date Recorded Q1: How often do you have a drink containing alcohol? Never 09/08/2024 Q2: How many drinks containi ng alcohol do you have on a typical day when you are drinking? Patient does not drink Q3: How often do you have si x or more drinks on one occasion? Never 09/08/2024 Education Answer Date Recorded What is the highest level of school you have completed or the highest degree you have received? 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 Gender Identity Not on file Sexual Orientation Not on file Last Filed Vital Signs Vital Sign Reading Time Taken Comments Blood Pressure 108/78 09/08/2024 2:35 PM CDT Pulse 68 09/08/2024 2:35 PM CDT Temperature 36.7 C (98 F) 09/08/2024 2:35 PM CDT Respiratory Rate 14 09/08/2024 2:35 PM CDT Oxygen Saturation 100% 09/08/2024 2:35 PM CDT Inhaled Oxygen Concentration - - Weight 78 kg (172 lb) 09/08/2024 2:35 PM CDT Height 157.5 cm (5' 2) 04/22/2024 9:49 AM DOOR MAKER Body Mass Index 31.46 04/22/2024 9:49 AM DOOR MAKER Plan of Treatment Health Maintenance Due Date Last Done Comments Hepatitis B Immunization (1 of 3 - 19+ 3-dose series) 05/11/2011 Human Papillomavirus (HPV) Immunization (1 - Risk 3-dose SCDM series) 05/11/2019 SARS-COV-2 Immunization (3 - Pfizer risk series) 11/09/2020 10/12/2020, 05/20/2020 Pap Smear 06/01/2023 05/31/2020, 01/29/2019 Influenza Immunization (#1) 2024 Cervical Cancer Screening (CCS) 03/22/2028 HPV/Cotest 03/22/2028 03/22/2023 Td Immunization Every 10 Yea rs (Adults With 1 Tdap) 11/23/2030 11/23/2020, 12/01/2018 [...] DETECTED NON DETECTED 10/23/2019 10:54 AM CDT [facility] Comment: IGM Antibodies to HAV not detected. Does not exclude early acute or recovered HAV infection. HEP B CORE AB (IGM) NON DETECTED NON DETECTED 10/23/2019 10:54 AM CDT [facility] Comment:IGM anti-HBC not det ected. Does not exclude the possibility of exposure to or infection with HBV. HEPATITIS B SURFACE ANTIGEN NON DETECTED NON DETECTED 10/23/2019 10:54 AM CDT [facility] Comment: A nonreactive test result [...] 0.08 <1 S/CO 10/23/2019 10:54 AM CDT [facility] Comment: Signal/Cutoff ratio < 0.79 is Nondetected Signal/Cutoff ratio 0.80-0.99 is Grayzone Signal/Cutoff ratio > 0.99 is Detected Supplemental assays are recommended if signal/cutoff ratio is >/=1.00. Signal/cutoff ratio result >/= 5.00 is 97% predictive of positivity for recombinant immunoblot assay (RIBA) and will be reported to the [place] Department of Public [facility] as required. Blood Venipuncture / Unknown 10/22/2019 8:23 AM CDT 10/22/2019 8:23 AM CDT Narrative [facility] - 10/23/2019 10:54 AM CDT Corrected report called to [facility]- Hardik BACK in Chemistry notified that result is nondetected. ABZ us Gayla Barker APRN, HARSHA HEMATOLOGY ORDERABLES E dited Result - Final [facility] [address] [place] [address], [place] from Last 3 Months or Most Recently Relevant to Health Maintenance Care Teams Blast Furnace Tender Relationship Specialty Start Date End Date Brian Mon MD [address] [place] [address] PCP - General Internal Medicine 10/17/23 Ct, [facility] ID Digital [email or web address] 09/03/19
== END 2025-01-09 15:39 | disposition home or self-care (01) ==
PROVIDERS: Emergency Provider Registered Nurse; PCP Internal Medicine
DX: N89.8 Other specified noninflammatory disorders of vagina (principal); F17.210 Nicotine dependence, cigarettes, uncomplicated; F12.90 Cannabis use, unspecified, uncomplicated; M32.9 Systemic lupus erythematosus, unspecified; M06.9 Rheumatoid arthritis, unspecified; J45.909 Unspecified asthma, uncomplicated; K21.9 Gastro-esophageal reflux disease without esophagitis; F41.9 Anxiety disorder, unspecified
CPT/HCPCS: 87070; 87798; 99213; G0463